=== PATIENT | female | born 1995 | race Caucasian/White ===

== ENCOUNTER 2016-10-07 01:39 | Emergency (ER) | payer MEDICARE, OTHER ==
[~2016-10-07] VITALS: Ht 167.6 cm; Wt 99.8 kg
[~2016-10-07 01:39] MED LIST: CIPRO500 MG PO; DIALYVITE TABL1 EACH PO; ISENTRESS400 MG PO; JENCYCLA0.35 MG PO; METRONIDAZOLE500 MG PO; RENVELA800 MG PO; SENSIPAR30 MG PO; SENSIPAR90 MG PO; VENTOLIN HFA18 GM INH; VITAMIN D5000 UNIT PO; ZOLOFT25 MG PO
[2016-10-07] MEDS ORDERED: PLAVIX75 MG PO (01:58)
[2016-10-07] MEDS ORDERED: NORCO 5-325 TA1 EACH PO (03:34)
[2016-10-07] MEDS ORDERED: CEPHALEXIN500 MG PO (03:34)
[2017-01-29] MEDS ORDERED: NORCO 5-325 TA1 EACH PO (00:42)
== END 2016-10-07 04:48 | disposition home or self-care (01) ==
LOC: ED 01:39
DX: N39.0 Urinary tract infection, site not specified (principal); N19 Unspecified kidney failure; Z99.2 Dependence on renal dialysis; F17.200 Nicotine dependence, unspecified, uncomplicated; Z79.899 Other long term (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; Z88.5 Allergy status to narcotic agent
CPT/HCPCS: 80053; 81001; 83690; 84703; 85025; 85610; 85730; 87088; 96374; 96375; 99283; J0696; J1170; J2405

== ENCOUNTER → 2017-01-28 | Emergency (ER) | payer MEDICARE, OTHER ==
[~2017-01-28] VITALS: Ht 170.2 cm; Wt 90.7 kg
[~2017-01-28] MED LIST changes: +CEPHALEXIN500 MG PO; +NORCO 5-325 TA1 EACH PO; +PLAVIX75 MG PO
--- NOTE | 2017-01-29 21:46 | EKG ---
[facility] [address] [place] [address] Signed Sinus tachycardia Otherwise normal ECG No previous ECGs available Confirmed by JACKIE DOLAN MD ([id number]) on 01/29/2017 9:46:44 PM Electronically Signed By: JACKIE DOLAN MD 01/29/17 2146 PATIENT NAME: CONOR LOUISE Electrocardiogram DATE OF : [birth year] PHYSICIAN: JACKIE DOLAN MD REPORT #: [id number] REPORT IS CONFIDENTIAL AND NOT TO BE RELEASED WITHOUT AUTHORIZATION
== END ==
LOC: ED 22:05
DX: R07.9 Chest pain, unspecified (principal); F17.200 Nicotine dependence, unspecified, uncomplicated; Z91.041 Radiographic dye allergy status; Z88.8 Allergy status to other drugs, medicaments and biological substances; Z88.5 Allergy status to narcotic agent; Z79.899 Other long term (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
CPT/HCPCS: 71010; 80053; 84100; 85025; 93005; 93010; 99284

== ENCOUNTER 2017-02-02 01:36 | Emergency (ER) | payer MEDICARE, OTHER ==
[~2017-02-02] VITALS: Ht 170.2 cm; Wt 90.7 kg
== END 2017-02-02 06:22 | disposition home or self-care (01) ==
LOC: ED 01:36
DX: R10.9 Unspecified abdominal pain (principal); F17.200 Nicotine dependence, unspecified, uncomplicated; Z88.8 Allergy status to other drugs, medicaments and biological substances; Z91.041 Radiographic dye allergy status; Z88.5 Allergy status to narcotic agent; Z79.899 Other long term (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
CPT/HCPCS: 36415; 80053; 81001; 84703; 85025; 96372; 99283; J1170

== ENCOUNTER 2017-09-16 23:05 | Emergency (ER) | payer MEDICARE, OTHER ==
[~2017-09-16] VITALS: Ht 170.2 cm; Wt 75.3 kg
== END 2017-09-17 01:40 | disposition home or self-care (01) ==
LOC: ED 23:05
DX: R52 Pain, unspecified (principal); I12.9 Hypertensive chronic kidney disease with stage 1 through stage 4 chronic kidney disease, or unspecified chronic kidney disease; N18.9 Chronic kidney disease, unspecified; Z91.15 Patient's noncompliance with renal dialysis; Z99.2 Dependence on renal dialysis; F17.200 Nicotine dependence, unspecified, uncomplicated; Z91.041 Radiographic dye allergy status; Z88.5 Allergy status to narcotic agent; Z79.899 Other long term (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
CPT/HCPCS: 80053; 85025; 99283

== ENCOUNTER 2018-05-10 07:20 | Emergency (ER) | payer MEDICARE, OTHER ==
[~2018-05-10] VITALS: Ht 170.2 cm; Wt 75.3 kg
[~2018-05-10 07:20] MED LIST changes: +OMEPRAZOLE20 MG PO; +VELPHORO500 MG PO; +[UNRECOGNIZED DRUG - OTHER] IV
[2018-05-10] MEDS ORDERED: AMLODIPINE BESYL5 MG PO (07:49)
== END 2018-05-10 08:06 | disposition home or self-care (01) ==
LOC: ED 07:20
DX: R04.0 Epistaxis (principal); I13.11 Hypertensive heart and chronic kidney disease without heart failure, with stage 5 chronic kidney disease, or end stage renal disease; N18.6 End stage renal disease; Z99.2 Dependence on renal dialysis; Z91.041 Radiographic dye allergy status; Z88.8 Allergy status to other drugs, medicaments and biological substances; Z88.5 Allergy status to narcotic agent; Z79.899 Other long term (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
CPT/HCPCS: 99283

== ENCOUNTER 2018-05-25 11:53 | Emergency (ER) | payer MEDICARE, OTHER ==
[~2018-05-25] VITALS: Ht 170.2 cm; Wt 75.3 kg
--- OUTSIDE RECORDS SUMMARY | ~2018-05-25 | XMS | Clinical Summary ---
Demographics + + + | Address | [address] | | | [place] [address] | + + + | Home Phone [...] | | | | | [place] [address] | | + + + + + | Thania Mallory | ECON | [address] | | | | | [place] [address] | | + + + + + | Deidra Weldon | ECON | [address] | | | | | [place] | | | | | [address] | | + + + + + Care Team Providers + +------+ + | Care Finish Carpenter Name | Role | Phone | + +------+ + | Jonathan Alonso MD | PP | | + +------+ + Source Comments DANILO is fully live on both EpicCare Ambulatory and EpicCare InPatient.[facility] Allergies + + + + + + [...] | + + + + + + Current Medications + + +-------+---------+------+------+-------+ | Prescription | Sig. | Disp. | Refills | Star | End | Statu | | | | | | t | Date | s | | | | | | Date | | | + + +-------+---------+------+------+-------+ | sevelamer | Take 3,200 mg by | | | | | Activ | | carbonate (RENVELA) | mouth with each meal | | | | | e | | 800 mg Oral tablet | and with snack(s). | | | | | | | | 3 with snacks | | | | | | + + +-------+---------+------+------+-------+ | EPOETIN JOYCE INJ | by Injection route. | | | | | Activ | | | | | | | | e | + + +-------+---------+------+------+-------+ | FOLIC ACID/VITAMIN | Take 1 tablet by | | | | | Activ | | B COMP W-C | mouth once daily. | | | | | e | | (DIALYVITE ORAL) | | | | | | | + + +-------+---------+------+------+-------+ | iron sucrose 100 | Inject 100 mg into | | | | | Activ | | mg iron/5 mL | the vein (IV) once. | | | | | e | | intravenous solution | Per dialysis unit | | | | | | + + +-------+---------+------+------+-------+ | clopidogrel 75 mg | Take 75 mg by mouth | | | | | Activ | | oral tablet | once daily. Take one | | | | | e | | | tablet by mouth | | | | | | | | daily | | | | | | + + +-------+---------+------+------+-------+ | DOXERCALCIFEROL | Inject into the | | | | | Activ | | (HECTOROL IV) | vein (IV). | | | | | e | + + +-------+---------+------+------+-------+ | cinacalcet | Take 90 mg by mouth | | | | | Activ | | (SENSIPAR) 90 mg | once daily. | | | | | e | | oral tablet | Administer with | | | | | | | | food. | | | | | | + + +-------+---------+------+------+-------+ Active Problems + + + | Problem [...] + | Patient on peritoneal dialysis (HCC) | 12/20/19 | | | | 13 [...] Filed Vital Signs + + + + | Vital Sign | Reading | Time Taken | + + + + | Blood Pressure | 122/74 | 05/24/2016 10:48 AM PDT | + + + + | Pulse | 74 | 05/24/2016 10:48 AM PDT | + + + + | Temperature | 36.6 C (97.8 F) | 11/17/2015 10:38 AM PDT | + + + + | Respiratory Rate | - | - | + + + + | Oxygen Saturation | 98% | 12/19/2012 2:45 PM PDT | + + + + | Inhaled Oxygen | - | - | | Concentration | | | + + + + | Weight | 96.9 kg (213 lb 10 | 05/24/2016 10:48 AM PDT | | | oz) | | + + + + | Height | 166.2 cm (5' 5.43") | 05/24/2016 10:48 AM PDT | + + + + | Body Mass Index | 35.08 | 05/24/2016 10:48 AM PDT | + + + + Plan of Treatment +--------+ + + + + | Date | Type | Specialty | Care Team | Description | +--------+ + + + + | 05/04/ | Hospital | | El Starr MD | | | 2022 | Encounter | | [address] | | | | | | [place], [place] | | | | | | [address] | | | | | | [phone] | | | | | | | | +--------+ + + + + + + + + + | Health Maintenance | Due Date | Last Done | Comments | + + + + + | Pneumococcal (Adult) | | 06/21/2012 | | | (2 of 3 - PPSV23) | 5 | | | + + + + + | Influenza (Flu) | | 12/13/2012 | | | vaccination (#1) | 8 | | | + + + + + Results Not on filefrom Last 3 Months Insurance + +--------+ +--------+ + + | Payer | Benefi | Subscriber | Type | Phone | Address | | | t Plan | ID | | | | | | / | | | | | | | Group | | | | | + +--------+ +--------+ + + | MEDICARE | MEDICA | xxxxxxxxxx | Medica | +1- | [id number] | | | RE A & | | re | [phone] | [place] [address] | | | B | | | | | + +--------+ +--------+ + + | SUSTAINABILITY ENGINEER MEDICAID | SUSTAINABILITY ENGINEER | xxxxxxxx | Medica | | | | | [place] | | id | | | | | [place] | | | | | + +--------+ +--------+ + + | MEDICARE RENAL | MEDICA | xxxxxxxxxx | Agency | | RENAL DEPT [id number] | | RECIPIENT EVAL | RE | | | | [place] [address] | | | RENAL | | | | | | | RECIPI | | | | | | | ENT | | | | | | | EVAL | | | | | + +--------+ +--------+ + + + +--------+ +--------+ + + | Guarantor Name | Accoun | Relation to | Date | Phone | Billing Address | | | t Type | Patient | of | | | | | | | | | | + +--------+ +--------+ + + | DARA WELDON | Person | Self | [birth year] | Work: | [address] | | | al/Fam | | 1994 | [phone] | [address] [place] | | | [place] | | | [address] Home: | [address] | | | | | | | | | | | | | [phone] | | | | | | | [address] | | + +--------+ +--------+ + + | CORY ALVES | Kisha | Mother | [birth year]/06/ | Home: | [address] | | | l | | [phone] | [phone] | [address] [place] | | | [place] | | | [address] | [address] | | | g | | | | | + +--------+ +--------+ + +
--- OUTSIDE RECORDS SUMMARY | ~2018-05-25 | XMS | Clinical Summary ---
Demographics + + + | Address | [address] | | | [place] [address] | + + + | Home Phone [...] + + + | Author | Riana [facility] | + + + | Organization | [facility] | + + + | Address | [...] | | | | | [place] [address] | | + + + + + | Wilson De Guzman | ECON | Unknown | | + + + + + Care Team Providers + +------+ + | Care It Communications Manager Name | Role | Phone | [...] | Left: | SYNOVIS | | | [id number] | | 0.8x8cm - [id number]: | | Arm | | | | [...] | | | COVIDIEN | | | [id number] | | 23cmExplanted: Qty: 1 on | | | | | | 3404 / | | 04/08/2014 | | | | | | | | | | | | | | /[id number] | | | | | | | [...] +------+-------+ + | MEDICARE | MEDICA | [id number] | | | [address] | | | RE | | | | [place] [address] | | | IP-OP | | | | | + +--------+ +------+-------+ + | MEDICAID | MEDICA | [id number] | | | [address] | | | ID | | | | [place], [place] | | | [place] | | | | [address] | + +--------+ +------+-------+ + + +--------+ [...] | | al/Fam | | 1994 | [phone] | [address], | | | [place] | | | [address] | [place] [address] | + +--------+ +--------+ + +
--- OUTSIDE RECORDS SUMMARY | ~2018-05-25 | XMS | Clinical Summary ---
Demographics + + + | Address | [address] | | | [place] [address] | + + + | Home Phone [...] + | Cory Weldno | ECON | [address] | | | | | [place] [address] | | + + + + + | Thania Mallory | ECON | [address] | | | | | [place] [address] | | + + + + + | Deidra Weldon | ECON | [address] | | | | | [place] | | | | | [address] | | + + + + + Care Team Providers + +------+ + | Care Enterprise Infrastructure Architect Name | Role | Phone | + +------+ + | Jonathan Alonso MD | PP | | + +------+ + Source Comments DANILO is fully live on both EpicCare Ambulatory and EpicCare InPatient.[facility] Allergies + + + + [...] | | | | | | [place], [place] | | | | | | [address] | | | | | | [phone] | | | | | | | [...] | re | [address] | [place] [address] | | | B | | | | | + +--------+ +--------+ + + | CONSULTANT IN ERGONOMICS AND SAFETY MEDICAID | CONSULTANT IN ERGONOMICS AND SAFETY | xxxxxxxx | Medica | | | | | [place] | | id | | | | | [place] | | | | | + +--------+ +--------+ + + | MEDICARE RENAL | MEDICA | xxxxxxxxxx | Agency | | RENAL DEPT [id number] | | RECIPIENT EVAL | RE | | | | [place] [address] | | | RENAL | | | [...] | | al/Fam | | 1994 | [phone] | [address] [place] | | | [place] | | | [address] Home: | [address] | | | | | | | | | | | | | [phone] | | | | | | | [address] | | + +--------+ +--------+ + + | CORY ALVES | Kisha | Mother | 03/06/ | Home: | [address] | | | l | | [phone] | [phone] | [address] [place] | | | [place] | | | [address] | [address] | | | g | | | | | + +--------+ +--------+ + +
--- OUTSIDE RECORDS SUMMARY | ~2018-05-25 | XMS | Clinical Summary ---
Demographics + + + | Address | [address] | | | [place] [address] | + + + | Home Phone [...] + + + | Author | Riana [facility] | + + + | Organization | [facility] | + + + | Address | [...] | | | | | [place] [address] | | + + + + + | Wilson De Guzman | ECON | Unknown | | + + + + + Care Team Providers + +------+ + | Care Pss Delivery Professional Name | Role | Phone | [...] | Left: | SYNOVIS | | | [id number] | | 0.8x8cm - [id number]: | | Arm | | | | [...] | | | COVIDIEN | | | [id number] | | 23cmExplanted: Qty: 1 on | | | | | | 3404 / | | 04/08/2014 | | | | | | | | | | | | | | /[id number] | | | | | | | [...] +------+-------+ + | MEDICARE | MEDICA | [id number] | | | [address] | | | RE | | | | [place] [address] | | | IP-OP | | | | | + +--------+ +------+-------+ + | MEDICAID | MEDICA | [id number] | | | [address] | | | ID | | | | [place], [place] | | | [place] | | | | [address] | + +--------+ +------+-------+ + + +--------+ [...] | | al/Fam | | 1994 | [phone] | [address], | | | [place] | | | [address] | [place] [address] | + +--------+ +--------+ + +
[~2018-05-25 11:53] MED LIST changes: +AMLODIPINE BESYL5 MG PO
--- OUTSIDE RECORDS SUMMARY | 2018-05-25 11:58 | XMS ---
PreManage Notification: CONOR LOUISE Security Title Searcher Events No recent Security Events currently on file CRITERIA MET - [facility] - 2 Visits in 30 Days CARE PROVIDERS There are no care providers on record at this time. Karena has no Care Guidelines for this patient. Timothy VISIT COUNT (12 MO.) [address] [facility] [place] TOTAL 4 NOTE: Visits indicate total known visits. ED/UCC VISIT TRACKING (12 MO.) 05/25/2018 11:53 [facility] [place] TYPE: Emergency COMPLAINT: - SOB/COUGH 05/10/2018 07:20 [facility] [place] TYPE: Emergency COMPLAINT: - PREVIOUS BLOODY NOSE DIAGNOSES: - Epistaxis - Other chcf (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 - End stage renal disease - Allergy status to narcotic agent status - Dependence on renal dialysis - Allergy status to other drugs, medicaments and biological substances status - Radiographic dye allergy status - Hypertensive heart and chronic kidney disease without heart failure, with stage 5 chronic kidney disease, or end stage renal disease 02/14/2018 23:09 [facility] [place] TYPE: Emergency COMPLAINT: - ABD PAIN DIAGNOSES: - Allergy status to narcotic agent status - Functional dyspepsia - Radiographic dye allergy status - Other ascites - Nicotine dependence, unspecified, uncomplicated - Epigastric pain - Other chcf (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 09/16/2017 23:06 [facility] [place] TYPE: Emergency COMPLAINT: - BP PROBLEM,RENAL FAILURE DIAGNOSES: - Chronic kidney disease, unspecified - Dependence on renal dialysis - Pain, unspecified - Allergy status to narcotic agent status - Nicotine dependence, unspecified, uncomplicated - Other chcf (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 - Elevated blood-pressure reading, without diagnosis of hypertension - Patient's noncompliance with renal dialysis - Hypertensive chronic kidney disease with stage 1 through stage 4 chronic kidney disease, or unspecified chronic kidney disease - Radiographic dye allergy status INPATIENT VISIT TRACKING (12 MO.) No inpatient visits to display in this time frame [email or web address]
[2018-05-25] MEDS ORDERED: ZOFRAN4 MG PO (15:00)
== END 2018-05-25 15:45 | disposition home or self-care (01) ==
LOC: ED 11:53
DX: J18.9 Pneumonia, unspecified organism (principal); J90 Pleural effusion, not elsewhere classified; Z99.2 Dependence on renal dialysis; Z91.041 Radiographic dye allergy status; Z88.8 Allergy status to other drugs, medicaments and biological substances; Z88.5 Allergy status to narcotic agent; Z79.899 Other long term (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
CPT/HCPCS: 36415; 71046; 82803; 83605; 85025; 87502; 96372; 99285-25; J0696

== ENCOUNTER 2018-05-26 07:23 | Emergency (ER) | payer MEDICARE, OTHER ==
[~2018-05-26] VITALS: Ht 170.2 cm; Wt 75.3 kg
--- OUTSIDE RECORDS SUMMARY | ~2018-05-26 | XMS | Clinical Summary ---
Demographics + + + | Address | [address] | | | [place] [address] | + + + | Home Phone | | + + + | Preferred Language | Unknown | + + + | Marital Status | Single | + + + | Jehovah'S Witness Affiliation | Unknown | + + + | Race | Unknown | + + + | Ethnic Group | Unknown | + + + Author + + + | Author | [facility]iana [facility] | + + + | Organization | [facility] | + + + | Address | [...] + + + + + | Christy Camacoh | ECON | [address] | | | | | [place] [address] | | + + + + + | Wilson De Guzman | ECON | Unknown | | + + + + + Care Team Providers + +------+ + | Care Brine Process Operator Name | Role | Phone | [...] + + +-------+---------+------+------+-------+ | sevelamer | Take 800 mg by mouth | | | | | Activ | | (RENVELA) 800 MG | 3 (three) times | | | | | e | | tablet | daily with meals. | | | | | | + + +-------+---------+------+------+-------+ | cinacalcet | Take 60 mg by mouth | | | | | Activ | | (SENSIPAR) 30 MG | daily. | | | | | e | | tablet | | | | | | | + + +-------+---------+------+------+-------+ | clopidogrel | Take 75 mg by [...] | | | + + +-------+---------+------+------+-------+ | benzonatate | Take 100 mg by mouth | | | | | Activ | | (TESSALON) 100 MG | 3 (three) times | | | | | e | | capsule | daily as needed for | | | | | | | | Cough. 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 | + + + | ESRD on hemodialysis | 08/01/2014 | + + + Family History + +------+--------+ + | Relation [...] Used | | + +-------+ +--------+------+ | Current Every Day | | 0.5 | 0.5 | | | Smoker | | | | | + +-------+ +--------+------+ + + +---------+ + | Alcohol Use [...] + + + | Blood Pressure | 144/93 | 07/09/2016 5:53 PM PDT | + + + + | Pulse | 66 | 07/09/2016 5:53 PM PDT | + + + + | Temperature | 36.4 C (97.5 F) | 07/09/2016 4:21 PM PDT | + + + + | Respiratory Rate | 16 | 07/09/2016 5:53 PM PDT | + + + + | Oxygen Saturation | 97% | 07/09/2016 5:53 PM PDT | + + + + | Inhaled Oxygen | - | - | | Concentration | | | + + + + | Weight | 96.9 kg (213 lb 10 | 07/09/2016 12:55 PM PDT | | | oz) | | + + + + | Height | 167.6 cm (5' 6") | 09/01/2015 8:46 AM PDT | + + + + | Body Mass Index | 34.48 | 07/09/2016 12:55 PM PDT | + + + + Plan [...] + + | Vaccine: Influenza | | 12/13/2012 | | | (#1) | 8 | | | + [...] | Left: | SYNOVIS | | | [id number] | | 0.8x8cm - [id number]: | | Arm | | | | [...] Lot | + +------+------+ +--------+--------+--------+ | 14.5 / (4.8) X | | | COVIDIEN | | | [id number] | | 23cmExplanted: Qty: 1 on | | | | | | 3404 / | | 04/08/2014 | | | | | | | | | | | | | | /[id number] | | | | | | | | 1X | + +------+------+ +--------+--------+--------+ Results Not on filefrom Last 3 Months Insurance + +--------+ +------+-------+ + | Payer | Benefi | Subscriber | Type | Phone | Address | | | t Plan | ID | | | | | | / | | | | | | | Group | | | | | + +--------+ +------+-------+ + | MEDICARE | MEDICA | [id number] | | | [address] | | | RE | | | | [place] [address] | | | IP-OP | | | | | + +--------+ +------+-------+ + | MEDICAID | MEDICA | [id number] | | | [address] | | | ID | | | | [place], [place] | | | [place] | | | | [address] | + +--------+ +------+-------+ + + +--------+ +--------+ + + | Guarantor Name | Accoun | Relation to | Date | Phone | Billing Address | | | t Type | Patient | of | | | | | | | | | | + +--------+ +--------+ + + | DARA WELDON | Person | Self [birth year] | Home: | [address] | | | al/Fam | | 1994 | [phone] | [address], | | | [place] | | | [address] | [place] [address] | + +--------+ +--------+ + +
--- OUTSIDE RECORDS SUMMARY | ~2018-05-26 | XMS | Clinical Summary ---
Demographics + + + | Address | [address] | | | [place] [address] | + + + | Home Phone [...] + + + | Author | Riana [facility] | + + + | Organization | [facility] | + + + | Address | [...] | | | | | [place] [address] | | + + + + + | Wilson De Guzman | ECON | Unknown | | + + + + + Care Team Providers + +------+ + | Care Elastic Attacher Overlock Name | Role | Phone | + [...] | Left: | SYNOVIS | | | [id number] | | 0.8x8cm - [id number]: | | Arm | | | | [...] | | | COVIDIEN | | | [id number] | | 23cmExplanted: Qty: 1 on | | | | | | 3404 / | | 04/08/2014 | | | | | | | | | | | | | | /[id number] | | | | | | | [...] +------+-------+ + | MEDICARE | MEDICA | [id number] | | | [address] | | | RE | | | | [place] [address] | | | IP-OP | | | | | + +--------+ +------+-------+ + | MEDICAID | MEDICA | [id number] | | | [address] | | | ID | | | | [place], [place] | | | [place] | | | | [address] | + +--------+ +------+-------+ + + +--------+ [...] | | al/Fam | | 1994 | [phone] | [address], | | | [place] | | | [address] | [place] [address] | + +--------+ +--------+ + +
--- OUTSIDE RECORDS SUMMARY | ~2018-05-26 | XMS | Clinical Summary ---
Demographics + + + | Address | [address] | | | [place] [address] | + + + | Home Phone [...] | | | | | [place] [address] | | + + + + + | Thania Mallory | ECON | [address] | | | | | [place] [address] | | + + + + + | Deidra Weldon | ECON | [address] | | | | | [place] | | | | | [address] | | + + + + + Care Team Providers + +------+ + | Care Notereader Name | Role | Phone | + +------+ + | Jonathan Alonso MD | PP | | + +------+ + Source Comments DANILO is fully live on both EpicCare Ambulatory and EpicCare InPatient.[facility] Allergies + + + + [...] [address] | | | | | | [place], [place] | | | | | | [address] | | | | | | [phone] | | | | | | | [...] | re | [address] | [place] [address] | | | B | | | | | + +--------+ +--------+ + + | RADIO INTERFERENCE INVESTIGATOR MEDICAID | RADIO INTERFERENCE INVESTIGATOR | xxxxxxxx | Medica | | | | | [place] | | id | | | | | [place] | | | | | + +--------+ +--------+ + + | MEDICARE RENAL | MEDICA | xxxxxxxxxx | Agency | | RENAL DEPT [id number] | | RECIPIENT EVAL | RE | | | | [place] [address] | | | RENAL | | | [...] | | al/Fam | | 1994 | [phone] | [address] | | | [place] | | | [address] Home: | [address] | | | | | | | | | | | | | [phone] | | | | | | | [address] | | + +--------+ +--------+ + + | CORY ALVES | Kisha | Mother | 03/06/ | Home: | [address] # | | | l | | [phone] | [phone] | [address] [place] [place] | | | [place] | | | [address] | [address] | | | g | | | | | + +--------+ +--------+ + +
--- OUTSIDE RECORDS SUMMARY | ~2018-05-26 | XMS | Clinical Summary ---
Demographics + + + | Address | [address] | | | [place] [address] | + + + | Home Phone [...] | | | | | [place] [address] | | + + + + + | Thania Mallory | ECON | [address] | | | | | [place] [address] | | + + + + + | Deidra Weldon | ECON | [address] | | | | | [place] | | | | | [address] | | + + + + + Care Team Providers + +------+ + | Care Fiber Product Cutting Machine Operator Name | Role | Phone | + +------+ + | Jonathan Alonso MD | PP | | + +------+ + Source Comments DANILO is fully live on both EpicCare Ambulatory and EpicCare InPatient.[facility]ly [facility] Allergies + + + + + [...] [address] | | | | | | [place], [place] | | | | | | [address] | | | | | | [phone] | | | | | | | [...] | re | [address] | [place] [address] | | | B | | | | | + +--------+ +--------+ + + | PANAMA HAT SMEARER MEDICAID | PANAMA HAT SMEARER | xxxxxxxx | Medica | | | | | [place] | | id | | | | | [place] | | | | | + +--------+ +--------+ + + | MEDICARE RENAL | MEDICA | xxxxxxxxxx | Agency | | RENAL DEPT [id number] | | RECIPIENT EVAL | RE | | | | [place] [address] | | | RENAL | | | [...] | | al/Fam | | 1994 | [phone] | [address] [place] | | | [place] | | | [address] Home: | [address] | | | | | | | | | | | | | [phone] | | | | | | | [address] | | + +--------+ +--------+ + + | CORY ALVES | Kisha | Mother | 03/06/ | Home: | [address] # | | | l | | [phone] | [phone] | [address] [place] | | | [place] | | | [address] | [address] | | | g | | | | | + +--------+ +--------+ + +
[~2018-05-26 07:23] MED LIST changes: +ZOFRAN4 MG PO
--- OUTSIDE RECORDS SUMMARY | 2018-05-26 07:26 | XMS ---
PreManage Notification: CONOR LOUISE Security Underwriting Analyst Events No recent Security Events currently on file CRITERIA MET - [facility] - 2 Visits in 30 Days CARE PROVIDERS There are no care providers on record at this time. Karena has no Care Guidelines for this patient. Timothy VISIT COUNT (12 MO.) [address] [facility] [address] [facility] TOTAL 5 NOTE: Visits indicate total known visits. ED/C VISIT TRACKING (12 MO.) 05/26/2018 07:23 [facility] [place] TYPE: Emergency COMPLAINT: - FLU SYMPTOMS 05/25/2018 11:53 [facility] [place] TYPE: Emergency COMPLAINT: - SOB/COUGH 05/10/2018 07:20 [facility] [place] TYPE: Emergency COMPLAINT: - PREVIOUS BLOODY NOSE DIAGNOSES: - Epistaxis - Other long distance operator (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 - End stage renal [...] unspecified, uncomplicated - Epigastric pain - Other long distance operator (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 09/16/2017 23:[address] [facility] [place] TYPE: Emergency COMPLAINT: - BP PROBLEM,RENAL FAILURE DIAGNOSES: - Chronic kidney disease, unspecified - Dependence on renal dialysis - Pain, unspecified - Allergy status to narcotic agent status - Nicotine dependence, unspecified, uncomplicated - Other intermediate (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 - Elevated blood-pressure reading, without diagnosis of hypertension - Patient's noncompliance with renal dialysis - Hypertensive chronic kidney disease with stage 1 through stage 4 chronic kidney disease, or unspecified chronic kidney disease - Radiographic dye allergy status INPATIENT VISIT TRACKING (12 MO.) No inpatient visits to display in this time frame [email or web address]
== END 2018-05-26 10:35 | disposition short-term general hospital (02) ==
LOC: ED 07:23
DX: J90 Pleural effusion, not elsewhere classified (principal); Z99.2 Dependence on renal dialysis; Z91.041 Radiographic dye allergy status; Z88.8 Allergy status to other drugs, medicaments and biological substances; Z88.5 Allergy status to narcotic agent; Z79.899 Other long term (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
CPT/HCPCS: 71045; 80053; 83605; 85025; 96365; 96375; 99285-25; J0696; J1200; J2060; J2405; J2765

== ENCOUNTER 2018-06-04 06:06 | Emergency (ER) | payer MEDICARE, OTHER ==
[~2018-06-04] VITALS: Ht 170.2 cm; Wt 68.7 kg
--- OUTSIDE RECORDS SUMMARY | ~2018-06-04 | XMS | Clinical Summary ---
Demographics + + + | Address | [facility] [address] | | | [place] [address] | + + + | Home Phone | | + + + | Preferred Language | Unknown | + + + | Marital Status | Single | + + + | Congregational Affiliation | Unknown | + + + | Race | Unknown | + + + | Ethnic Group | Unknown | + + + Author + + + | Author | [facility] | + + + | Organization | [facility] | + + + | Address | Unknown | + + + | Phone | Unavailable | + + + Support + + + + + | Name | Relationship | Address | Phone | + + + + + | Cory Louise | ECON | Unknown | | + + + + + | Thania Mallory | ECON | Unknown | | + + + + + | Saundra Mallory | ECON | Unknown | | + + + + + | Christy Camacho | ECON | [address] | | | | | [place] [address] | | + + + + + | Wilson De Guzman | ECON | Unknown | | + + + + + Care Team Providers + +------+ + | Care Semi Truck Driver Name | Role | Phone | + +------+ + | Jonathan Alonso MD | PP | | + +------+ + Allergies + + + + + + | Active Allergy | Reactions | Severity | Noted | Comments | | | | | Date | | + + + + + + | Fentanyl | Itching | Medium | 11/01/19 | | | | | | 15 | | + + + + + + | Iodinated Diagnostic | Itching | Medium | 08/13/19 | Pt c/o face | | Agents | | | 16 | itching during | | | | | | fistulagram | + + + + + + | Morphine | Rash | Medium | 03/07/19 | | | | | | 15 | | + + + + + + | Adhesive Tape | Rash | Medium | 06/13/19 | Use silk tape only | | | | | 15 | | + + + + + + Current Medications + + +--------+---------+------+------+-------+ | Prescription | Sig. | Disp. | Refills | Star | End | Statu | | | | | | t | Date | s | | | | | | Date | | | + + +--------+---------+------+------+-------+ | clopidogrel | Take 75 mg by mouth | | | | | Activ | | (PLAVIX) 75 MG | daily. Indications: | | | | | e | | tabletIndications: | Treatment to Prevent | | | | | | | Subacute Stent | a Blood Clot in a | | | | | | | Thrombosis | Vascular Stent | | | | | | | Prevention | | | | | | | + + +--------+---------+------+------+-------+ | Etelcalcetide HCl | Inject into the | | | | | Activ | | (PARSABIV IV) | vein 3 (three) times | | | | | e | | | a week. | | | | | | + + +--------+---------+------+------+-------+ | sucroferric | Take 500 mg by mouth | | | | | Activ | | oxyhydroxide | 3 (three) times | | | | | e | | (VELPHORO) 500 MG | daily with meals. | | | | | | | chewable tablet | | | | | | | + + +--------+---------+------+------+-------+ | | Take 2 tablets by | | | | | Activ | | HYDROcodone-acetamin | mouth nightly as | | | | | e | | ophen (NORCO) 5-325 | needed for Pain. | | | | | | | MG per tablet | | | | | | | + + +--------+---------+------+------+-------+ | ondansetron | Take 4 mg by mouth | | | | | Activ | | (ZOFRAN) 4 MG tablet | every 6 (six) hours | | | | | e | | | as needed for | | | | | | | | Nausea. | | | | | | + + +--------+---------+------+------+-------+ | hydrALAZINE | Take 1 tablet by | 90 | 3 | 03/2 | 03/2 | Activ | | (APRESOLINE) 50 MG | mouth 3 (three) | tablet | | 9/20 | 8/20 | e | | tablet | times daily. | | | 19 | 20 | | + + +--------+---------+------+------+-------+ | isosorbide | Take 1 tablet by | 90 | 2 | 03/2 | 03/2 | Activ | | dinitrate (ISORDIL) | mouth 3 (three) | tablet | | 9/20 | 8/20 | e | | 40 MG tablet | times daily. | | | 19 | 20 | | + + +--------+---------+------+------+-------+ | metoprolol | Take 1 tablet by | 30 | 2 | 03/3 | 03/2 | Activ | | (TOPROL-XL) 25 MG 24 | mouth daily. | tablet | | 0/20 | 9/20 | e | | hr tablet | | | | 19 | 20 | | + + +--------+---------+------+------+-------+ | pantoprazole | Take 1 tablet by | 30 | 1 | 03/3 | 05/2 | Activ | | (PROTONIX) 40 MG | mouth every morning | tablet | | 0/20 | 9/20 | e | | tablet | before breakfast for | | | 19 | 19 | | | | 60 days. | | | | | | + + +--------+---------+------+------+-------+ | sevelamer | Take 2 tablets by | 180 | 2 | 03/2 | 03/2 | Activ | | (RENVELA) 800 MG | mouth 3 (three) | tablet | | 9/20 | 8/20 | e | | tablet | times daily with | | | 19 | 20 | | | | meals. | | | | | | + + +--------+---------+------+------+-------+ | sevelamer | Take 800 mg by mouth | | | | 03/2 | Disco | | (RENVELA) 800 MG | 3 (three) times | | | | 3/20 | ntinu | | tablet | daily with meals. | | | | 19 | ed | + + +--------+---------+------+------+-------+ | cinacalcet | Take 60 mg by mouth | | | | 03/2 | Disco | | (SENSIPAR) 30 MG | daily. | | | | 3/20 | ntinu | | tablet | | | | | 19 | ed | + + +--------+---------+------+------+-------+ | benzonatate | Take 100 mg by mouth | | | | 03/2 | Disco | | (TESSALON) 100 MG | 3 (three) times | | | | 3/20 | ntinu | | capsule | daily as needed for | | | | 19 | ed | | | Cough. | | | | | | + + +--------+---------+------+------+-------+ | citalopram | Take 20 mg by mouth | | | | 03/2 | Disco | | (CELEXA) 20 MG | nightly. | | | | 9/20 | ntinu | | tablet | | | | | 19 | ed | + + +--------+---------+------+------+-------+ | losartan (COZAAR) | Take 100 mg by mouth | | | | 03/2 | Disco | | 100 MG tablet | nightly. | | | | 9/20 | ntinu | | | | | | | 19 | ed | + + +--------+---------+------+------+-------+ | doxycycline | Take 100 mg by mouth | | | | 03/2 | Disco | | (VIBRA-TABS) 100 MG | 2 (two) times | | | | /20 | ntinu | | tablet | daily. | | | | 19 | ed | + + +--------+---------+------+------+-------+ Active Problems + + + | Problem | Noted Date | + + + | Acute systolic CHF (congestive heart failure) ([facility]) | 05/28/2018 | + + + | Transaminitis | 05/28/2018 | + + + | Chronic systolic heart failure (HCC) | 05/27/2018 | + + + | Hyperphosphatemia | 05/27/2018 | + + + | Hyperkalemia | 05/27/2018 | + + + | Pulmonary artery hypertension (HCC) | 05/27/2018 | + + + | Non-rheumatic tricuspid valve insufficiency | 05/27/2018 | + + + | Non-rheumatic mitral regurgitation | 05/27/2018 | + + + | Diastolic dysfunction with chronic heart failure (HCC) | 05/27/2018 | + + + | At high risk for electrolyte imbalance | 05/27/2018 | + + + | SOB (shortness of breath) | 05/26/2018 | + + + | Pleural effusion on right | 05/26/2018 | + + + | Non-compliance | 05/26/2018 | + + + | HSP (Jdaa Schernestolein purpura) | 08/01/2014 | + + + | ESRD on hemodialysis | 08/01/2014 | + + + Encounters +--------+ + + + + | Date | Type | Specialty | Care Team | Description | +--------+ + + + + | 05/26/ | Hospital | | Aneudy Hunter, | Pleural effusion on | | 2019 - | Encounter | | Mayco Mabry MD | right (Primary Dx); | | | | | Javy Figueroa MD | Chest pain, | | 06/01/ | | | Darell Kowalski MD | unspecified type; | | 2019 | | | | Other ascites; Acute | | | | | | respiratory | | | | | | distress; End-stage | | | | | | renal disease on | | | | | | hemodialysis ([facility]); | | | | | | Hyperkalemia; | | | | | | Hyperphosphatemia; | | | | | | At high risk for | | | | | | electrolyte | | | | | | imbalance; Acute | | | | | | systolic CHF | | | | | | (congestive heart | | | | | | failure) ([facility]); | | | | | | Hypoalbuminemia; | | | | | | Anemia in ESRD | | | | | | (end-stage renal | | | | | | disease) ([facility]); ESRD | | | | | | on hemodialysis | +--------+ + + + + from Last 3 Months Family History + +------+--------+ + | Relation | Name | Status | Comments | + +------+--------+ + | Father | | Alive | | + +------+--------+ + | Mother | | Alive | | + +------+--------+ + Social History + +-------+ +--------+------+ | Tobacco Use | Types | Packs/Day | Years | Date | | | | | Used | | + +-------+ +--------+------+ | Former Smoker | | 0.5 | 0.5 | | + +-------+ +--------+------+ + +---+---+---+ | Smokeless Tobacco: | | | | | Never Used | | | | + +---+---+---+ + + | Tobacco Cessation: Counseling Given: Yes | + + + + +---------+ + | Alcohol Use | Drinks/We | oz/Week | Comments | | | ek | | | + + +---------+ + | Yes | | | occassional | + + +---------+ + + + + | Sex Assigned at | Date Recorded | | | | + + + | Not on file | | + + + Last Filed Vital Signs + + + + | Vital Sign | Reading | Time Taken | + + + + | Blood Pressure | 137/96 | 06/01/2018 2:28 PM PDT | + + + + | Pulse | 82 | 06/01/2018 12:27 PM PDT | + + + + | Temperature | 37.1 C (98.7 F) | 06/01/2018 11:40 AM PDT | + + + + | Respiratory Rate | 16 | 06/01/2018 11:40 AM PDT | + + + + | Oxygen Saturation | 98% | 06/01/2018 11:40 AM PDT | + + + + | Inhaled Oxygen | - | - | | Concentration | | | + + + + | Weight | 67.2 kg (148 lb 2.4 | 06/01/2018 11:40 AM PDT | | | oz) | | + + + + | Height | 170.2 cm (5' 7") | 05/26/2018 5:25 PM PDT | + + + + | Body Mass Index | 23.2 | 06/01/2018 11:40 AM PDT | + + + + Plan of Treatment + + + + + | Health Maintenance | Due Date | Last Done | Comments | + + + + + | Vaccine: | | 10/08/2001, 07/22/1997, | | | Dtap/Tdap/Td (5 - | 7 | 1996, Additional history | | | Tdap) | | exists | | + + + + + | Vaccine: HPV (1 - | | | | | Female 3-dose | 1 | | | | series) | | | | + + + + + | Vaccine: | | 06/21/2012 | | | Pneumococcal 19-64 | 5 | | | | Highest Risk (2 of 3 | | | | | - PPSV23) | | | | + + + + + | Cervical Cancer | | | | | Screening (Pap) | 7 | | | + + + + + | Vaccine: Influenza | | | | | (Season Ended) | 9 | | | + + + + + Implants + +------+--------+ +--------+--------+--------+ | Implanted | Type | Area | Manufacture | Device | Expira | Model | | | | | r | | tion | / | | | | | | Identi | Date | Serial | | | | | | fier | | / Lot | + +------+--------+ +--------+--------+--------+ | Patch Bovine Vascuguard | | Left: | SYNOVIS | | | [id number] | | 0.8x8cm - [id number]: | | Arm | | | | N / | | Qty: 1 on 03/07/2014 by Alfred, | | | | | | /[id number] | | Rik Trotter MD | | | | | | 14-11K | | | | | | | | [id number] | + +------+--------+ +--------+--------+--------+ + +------+------+ +--------+--------+--------+ | Explanted | Type | Area | Manufacture | Device | Expira | Model | | | | | r | | tion | / | | | | | | Identi | Date | Serial | | | | | | fier | | / Lot | + +------+------+ +--------+--------+--------+ | 14.5 Fr/Ch (4.8) X | | | COVIDIEN | | | [id number] | | 23cmExplanted: Qty: 1 on | | | | | | [id number] / | | 04/08/2014 | | | | | | | | | | | | | | /[id number] | | | | | | | | 1X | + +------+------+ +--------+--------+--------+ Procedures + +--------+ + + + | Procedure Name | Priori | Date/Time | Associated Diagnosis | Comments | | | ty | | | | + +--------+ + + + | COMPREHENSIVE | Routin | 06/01/2018 | | Results for this | | METABOLIC PANEL | e | 4:43 AM | | procedure are in the | | | | PDT | | results section. | + +--------+ + + + | CBC W/AUTO DIFF | Routin | 06/01/2018 | | Results for this | | (REFLEX TO MANUAL) | e | 4:43 AM | | procedure are in the | | | | PDT | | results section. | + +--------+ + + + | HOME O2 EVAL | Routin | 06/01/2018 | | | | (DESATURATION | e | 12:05 AM | | | | SCREEN) | | PDT | | | + +--------+ + + + | COMPREHENSIVE | Routin | 05/31/2018 | | Results for this | | METABOLIC PANEL | e | 5:04 AM | | procedure are in the | | | | PDT | | results section. | + +--------+ + + + | CBC W/AUTO DIFF | Routin | 05/31/2018 | | Results for this | | (REFLEX TO MANUAL) | e | 5:04 AM | | procedure are in the | | | | PDT | | results section. | + +--------+ + + + | HEMODIALYSIS | Today | 05/30/2018 | | Results for this | | INPATIENT | | 10:14 AM | | procedure are in the | | | | PDT | | results section. | + +--------+ + + + | COMPREHENSIVE | Routin | 05/30/2018 | | Results for this | | METABOLIC PANEL | e | 4:18 AM | | procedure are in the | | | | PDT | | results section. | + +--------+ + + + | CBC W/AUTO DIFF | Routin | 05/30/2018 | | Results for this | | (REFLEX TO MANUAL) | e | 4:18 AM | | procedure are in the | | | | PDT | | results section. | + +--------+ + + + | XR CHEST 1 VIEW | STAT | 05/29/2018 | | Results for this | | | | 1:38 PM | | procedure are in the | | | | PDT | | results section. | + +--------+ + + + | CHOLESTEROL, BODY | Timed | 05/29/2018 | | Results for this | | FLUID | | 12:56 PM | | procedure are in the | | | | PDT | | results section. | + +--------+ + + + | LACTATE | Routin | 05/29/2018 | | Results for this | | DEHYDROGENASE, BODY | e | 12:56 PM | | procedure are in the | | FLUID | | PDT | | results section. | + +--------+ + + + | GRAM STAIN | Timed | 05/29/2018 | | Results for this | | | | 12:56 PM | | procedure are in the | | | | PDT | | results section. | + +--------+ + + + | US THORACENTESIS | Routin | 05/29/2018 | | Results for this | | WITH IMAGING | e | 12:31 PM | | procedure are in the | | GUIDANCE | | PDT | | results section. | + +--------+ + + + | APTT | INOCENCIO | 05/29/2018 | | Results for this | | | | 8:52 AM | | procedure are in the | | | | PDT | | results section. | + +--------+ + + + | PROTIME-INR | INOCENCIO | 05/29/2018 | | Results for this | | | | 8:52 AM | | procedure are in the | | | | PDT | | results section. | + +--------+ + + + | COMPREHENSIVE | Routin | 05/29/2018 | | Results for this | | METABOLIC PANEL | e | 4:57 AM | | procedure are in the | | | | PDT | | results section. | + +--------+ + + + | CBC W/AUTO DIFF | Routin | 05/29/2018 | | Results for this | | (REFLEX TO MANUAL) | e | 4:57 AM | | procedure are in the | | | | PDT | | results section. | + +--------+ + + + | US ABDOMEN LIMITED | Routin | 05/28/2018 | | Results for this | | | e | 7:26 PM | | procedure are in the | | | | PDT | | results section. | + +--------+ + + + | TROPONIN I | Routin | 05/28/2018 | | Results for this | | | e | 1:59 PM | | procedure are in the | | | | PDT | | results section. | + +--------+ + + + | HEMODIALYSIS | Routin | 05/28/2018 | | Results for this | | INPATIENT | e | 1:34 PM | | procedure are in the | | | | PDT | | results section. | + +--------+ + + + | HIV-1 AND HIV-2 | Add-On | 05/28/2018 | | Results for this | | ANTIBODIES | | 12:36 PM | | procedure are in the | | | | PDT | | results section. | + +--------+ + + + | HEPATITIS PANEL, | INOCENCIO | 05/28/2018 | | Results for this | | ACUTE | | 12:36 PM | | procedure are in the | | | | PDT | | results section. | + +--------+ + + + | RENAL FUNCTION PANEL | STAT | 05/28/2018 | | Results for this | | | | 12:09 PM | | procedure are in the | | | | PDT | | results section. | + +--------+ + + + | EKG STANDARD 12 LEAD | Routin | 05/28/2018 | | Results for this | | | e | 11:58 AM | | procedure are in the | | | | PDT | | results section. | + +--------+ + + + | HCG, SERUM, | Add-On | 05/28/2018 | | Results for this | | QUALITATIVE | | 9:23 AM | | procedure are in the | | | | PDT | | results section. | + +--------+ + + + | C-REACTIVE PROTEIN | Add-On | 05/28/2018 | | Results for this | | | | 9:23 AM | | procedure are in the | | | | PDT | | results section. | + +--------+ + + + | SEDIMENTATION RATE, | Add-On | 05/28/2018 | | Results for this | | AUTOMATED | | 9:23 AM | | procedure are in the | | | | PDT | | results section. | + +--------+ + + + | TSH | Add-On | 05/28/2018 | | Results for this | | | | 9:23 AM | | procedure are in the | | | | PDT | | results section. | + +--------+ + + + | TROPONIN I | Add-On | 05/28/2018 | | Results for this | | | | 9:23 AM | | procedure are in the | | | | PDT | | results section. | + +--------+ + + + | COMPREHENSIVE | Routin | 05/28/2018 | | Results for this | | METABOLIC PANEL | e | 9:23 AM | | procedure are in the | | | | PDT | | results section. | + +--------+ + + + | CBC W/AUTO DIFF | Routin | 05/28/2018 | | Results for this | | (REFLEX TO MANUAL) | e | 9:23 AM | | procedure are in the | | | | PDT | | results section. | + +--------+ + + + | PATHOLOGY CYTOLOGY - | INOCENCIO | 05/28/2018 | | Results for this | | FLUID | | 8:00 AM | | procedure are in the | | | | PDT | | results section. | + +--------+ + + + | SPUTUM CULT W/ GRAM | Timed | 05/27/2018 | | Results for this | | STAIN | | 8:15 PM | | procedure are in the | | | | PDT | | results section. | + +--------+ + + + | HEPATITIS | STAT | 05/27/2018 | | Results for this | | PANEL,CHRONIC | | 5:58 PM | | procedure are in the | | | | PDT | | results section. | + +--------+ + + + | ECHO CARDIAC ADULT | Routin | 05/27/2018 | | Results for this | | COMPLETE | e | 12:01 PM | | procedure are in the | | | | PDT | | results section. | + +--------+ + + + | XR CHEST 2 VIEW | Routin | 05/27/2018 | | Results for this | | FRONTAL AND LATERAL | e | 11:02 AM | | procedure are in the | | | | PDT | | results section. | + +--------+ + + + | BRAIN NATRIURETIC | Routin | 05/27/2018 | | Results for this | | PEPTIDE | e - AM | 4:25 AM | | procedure are in the | | | | PDT | | results section. | + +--------+ + + + | PHOSPHOROUS | Routin | 05/27/2018 | | Results for this | | | e - AM | 4:25 AM | | procedure are in the | | | | PDT | | results section. | + +--------+ + + + | MAGNESIUM | Routin | 05/27/2018 | | Results for this | | | e - AM | 4:25 AM | | procedure are in the | | | | PDT | | results section. | + +--------+ + + + | BASIC METABOLIC | Routin | 05/27/2018 | | Results for this | | PANEL | e - AM | 4:25 AM | | procedure are in the | | | | PDT | | results section. | + +--------+ + + + | CBC W/AUTO DIFF | INOCENCIO | 05/27/2018 | | Results for this | | (REFLEX TO MANUAL) | | 4:25 AM | | procedure are in the | | | | PDT | | results section. | + +--------+ + + + | MRSA BY PCR | Timed | 05/26/2018 | | Results for this | | | | 6:06 PM | | procedure are in the | | | | PDT | | results section. | + +--------+ + + + | RESPIRATORY | Timed | 05/26/2018 | | Results for this | | FILMARRAY | | 6:06 PM | | procedure are in the | | | | PDT | | results section. | + +--------+ + + + | PROCALCITONIN | Timed | 05/26/2018 | | Results for this | | | | 5:27 PM | | procedure are in the | | | | PDT | | results section. | + +--------+ + + + | CT CHEST WO CONTRAST | INOCENCIO | 05/26/2018 | | Results for this | | | | 4:41 PM | | procedure are in the | | | | PDT | | results section. | + +--------+ + + + | XR CHEST 2 VIEW | INOCENCIO | 05/26/2018 | | Results for this | | FRONTAL AND LATERAL | | 3:59 PM | | procedure are in the | | | | PDT | | results section. | + +--------+ + + + | FLUID CULT W/GRAM | STAT | 05/26/2018 | | Results for this | | STAIN | | 3:13 PM | | procedure are in the | | | | PDT | | results section. | + +--------+ + + + | PATHOLOGY CONSULT | Routin | 05/26/2018 | | Results for this | | | e | 2:12 PM | | procedure are in the | | | | PDT | | results section. | + +--------+ + + + | FLUID TOTAL PROTEIN | STAT | 05/26/2018 | | Results for this | | (BODY FLUID) | | 2:12 PM | | procedure are in the | | | | PDT | | results section. | + +--------+ + + + | ALBUMIN, FLUID | STAT | 05/26/2018 | | Results for this | | | | 2:12 PM | | procedure are in the | | | | PDT | | results section. | + +--------+ + + + | PH, BODY FLUID | STAT | 05/26/2018 | | Results for this | | | | 2:12 PM | | procedure are in the | | | | PDT | | results section. | + +--------+ + + + | FLUID CULT W/GRAM | STAT | 05/26/2018 | | Results for this | | STAIN | | 2:12 PM | | procedure are in the | | | | PDT | | results section. | + +--------+ + + + | BODY FLUID CELL | STAT | 05/26/2018 | | Results for this | | COUNT | | 2:12 PM | | procedure are in the | | | | PDT | | results section. | + +--------+ + + + | PROCALCITONIN | STAT | 05/26/2018 | | Results for this | | | | 12:14 PM | | procedure are in the | | | | PDT | | results section. | + +--------+ + + + | BRAIN NATRIURETIC | STAT | 05/26/2018 | | Results for this | | PEPTIDE | | 12:14 PM | | procedure are in the | | | | PDT | | results section. | + +--------+ + + + | [facility] CARD PANEL W/O | STAT | 05/26/2018 | | Results for this | | TRP (ED ONLY) | | 12:14 PM | | procedure are in the | | | | PDT | | results section. | + +--------+ + + + | THORACENTESIS | Routin | 05/26/2018 | | Results for this | | | e | 12:01 PM | | procedure are in the | | | | PDT | | results section. | + +--------+ + + + | PARACENTESIS | Routin | 05/26/2018 | | Results for this | | | e | 12:01 PM | | procedure are in the | | | | PDT | | results section. | + +--------+ + + + | ED INFORMATION | Routin | 05/26/2018 | | Results for this | | EXCHANGE | e | 11:59 AM | | procedure are in the | | | | PDT | | results section. | + +--------+ + + + | XR CHEST 1 VIEW | Routin | 05/26/2018 | Chest pain, | Results for this | | | e | 9:55 AM | unspecified type | procedure are in the | | | | PDT | | results section. | + +--------+ + + + from Last 3 Months Results CBC W/Auto Diff (Reflex to Manual) (06/01/2018 4:43 AM)Only the most recent of 6 results w ithin the time period is included. + + + + + | Component | Value | Ref Range | Performed At | + + + + + | WBC | 5.40 | 3.80 - 11.00 K/uL | [facility] | | | | | [facility] | + + + + + | RBC | 2.95 (L) | 3.70 - 5.10 M/uL | [facility] | | | | | [facility] | + + + + + | HGB | 10.7 (L) | 11.3 - 15.5 g/dL | [facility] | | | | | [facility] | + + + + + | HCT | 32.4 (L) | 34.0 - 46.0 % | [facility] [...] + + + + | MCHC | 33.0 | 32.0 - 35.5 g/dL | [facility] | | | | | [facility] | + + + + + | RDW SD | 56.9 (H) | 37 - 53 fl | [facility] | | | | | [facility] | + + + + + | PLT | 119 (L) | 150 - 400 K/uL | [facility] | | | | | [facility] | + + + + + | MPV | 9.6 | fl | [facility] | | | | | [facility] | + + + + + | DIFF TYPE | AUTOMATED | | [facility] | | | | [facility] | + + + + + | NEUTROPHILS | 54.51 | % | [facility] | | | | | [facility] | + + + + + | LYMPHOCYTES | 21.23 | % | [facility] | | | | | [facility] | + + + + + | MONOCYTES | 8.93 | % | [facility] | | | | | [facility] | + + + + + | EOSINOPHILS | 14.69 | % | [facility] | | | | | [facility] | + + + + + | BASOPHILS | 0.64 | % | [facility] | | | | | [facility] | + + + + + | NEUTROPHILS ABS | 2.94 | 1.90 - 7.40 K/uL | [facility] | | | | | [facility] | + + + + + | LYMPHOCYTES ABS | 1.15 | 1.00 - 3.90 K/uL | [facility] | | | | | [facility] | + + + + + | MONOCYTES ABS | 0.48 | 0.00 - 0.80 K/uL | [facility] | | | | | [facility] | + + + + + | EOSINOPHILS ABS | 0.79 (H) | 0.00 - 0.50 K/uL | [facility] | | | | | [facility] | + + + + + | BASOPHILS ABS | 0.04 | 0.00 - 0.10 K/uL | [facility] | | | | | [facility] | + + + + + | MORPHOLOGY | 2+Comment: | | [facility] | | | MACRO1+ANISONORMAL PLT | | LABORATORY | | | MORPHTesting performed | | | | | at [facility], [address] | | | | | [employer], | | | | | [place] [address] | | | | |Testing performed at [facility], [address] [place] [address] | | | | | | | | + + + + + + + | Specimen | + + | Blood | + + + + + + + | Performing | Address | City/State/Zipcode | Phone Number | | Organization | | | | + + + + + | [facility] | [address] | [place] [address] | [phone] | | LABORATORY | [address] | | | + + + + + Comprehensive metabolic panel (06/01/2018 4:43 AM)Only the most recent of 5 results within the time period is included. + + + + + | Component | Value | Ref Range | Performed At | + + + + + | SODIUM | 139 | 135 - 145 mmol/L | [facility] | | | | | LABORATORY | + + + + + | POTASSIUM | 4.7 | 3.5 - 4.9 mmol/L | [facility] | | | | | LABORATORY | + + + + + | CHLORIDE | 101 | 99 - 109 mmol/L | [facility] | | | | | LABORATORY | + + + + + | CO2 | 33 (H) | 23 - 32 mmol/L | [facility] | | | | | LABORATORY | + + + + + | ANION GAP AGAP | 10 | 5 - 20 mmol/L | [facility] | | | | | LABORATORY | + + + + + | GLUCOSE | 82 | 65 - 99 mg/dL | [facility] | | | | | LABORATORY | + + + + + | BUN | 27 (H) | 8 - 25 mg/dL | [...] + + + + | CALCIUM | 9.7 | 8.5 - 10.5 mg/dL | [facility] | | | | | LABORATORY | + + + + + | TOTAL PROTEIN | 6.5 | 6.3 - 8.2 g/dL | [facility] | | | | | LABORATORY | + + + + + | Albumin | 3.0 (L) | 3.6 - 5.0 g/dL | [facility] | | | | | LABORATORY | + + + + + | GLOBULIN | 3.5 | 1.3 - 4.9 g/dL | [facility] [...] + + + | ALK PHOS | 138 (H) | 35 - 115 U/L | [facility] | | | | | LABORATORY | + + + + + | AST | 97 (H) | 10 - 45 U/L | [facility] | | | | | LABORATORY | + + + + + | ALT | 231 (H) | 10 - 65 U/L | [facility] [...] | | | | performed at [facility], [address] | | | | [address], | | | | | [place] [address] | | | + + + + + + + | Specimen | + + | Blood | + + + + + + + | Performing | Address | City/State/Zipcode | Phone Number | | Organization | | | | + + + + + | [facility] [facility] | [address] | [place] [address] | [phone] | | LABORATORY | Sandip. | | | + + + + + HEMODIALYSIS INPATIENT (05/30/2018 10:14 AM) + + + | Narrative | Performed At | + + + | René Anguiano MD 05/31/2018 4:56 PM Hospital Problem | | | List: Active Problems: ESRD on hemodialysis SOB (shortness | | | of breath) Pleural effusion on right Non-compliance | | | Chronic systolic heart failure (HCC) Hyperphosphatemia | | | Hyperkalemia Pulmonary artery hypertension (HCC) | | | Non-rheumatic tricuspid valve insufficiency Non-rheumatic | | | mitral regurgitation Diastolic dysfunction with chronic heart | | | failure (HCC) At high risk for electrolyte imbalance Acute | | | systolic CHF (congestive heart failure) ([facility]) Transaminitis | | | The patient is seen & examined today on HD. she says that she feels | | | 'stomach pains' today. she denies any cp, dyspnea. She was | | | admitted with symptomatic large right pleural effusion. She | | | presented with: Had dyspnea on minimal exertion starting this last | | | Monday. Worsened over the next few days. Was put on "an | | | antibiotic" for pneumonia at [facility] ED. Was throwing up & could not | | | keep it down. Severe worsening of the dyspnea yesterday. This week | | | she had 1.5 dialysis treatments. In the ED she had 4L paracentesis, | | | and 1L thoracentesis yesterday (05/26). The following portions | | | of the patient's history were reviewed and updated as appropriate: | | | laboratory data, allergies, current medications, and problem list. | | | Scheduled Meds: | | | calcium carbonate 1,000 mg Oral BID | | | cetirizine 10 mg Oral Daily | | | clopidogrel 75 mg Oral Daily | | | colchicine 0.6 mg Oral Daily | | | heparin (porcine) 1,000 Units Intravenous Once in dialysis | | | heparin (porcine) 500 Units Intravenous Once in dialysis | | | heparin (porcine) 5000 unit/0.5mL 5,000 Units Subcutaneous 3 | | | times per day | | | hydrALAZINE 50 mg Oral TID | | | isosorbide dinitrate 40 mg Oral TID | | | lactulose 30 g Oral Daily | | | metoprolol 25 mg Oral Daily | | | nicotine 1 patch Transdermal Daily | | | pantoprazole 40 mg Oral QAM AC | | | senna-docusate 3 tablet Oral Nightly | | | sevelamer 1,600 mg Oral TID WC Continuous Infusions: PRN | | | Meds:.acetaminophen OR acetaminophen, benzonatate, | | | diphenhydrAMINE, ondansetron OR ondansetron, oxyCODONE, | | | polyethylene glycol, promethazine, sodium chloride (bolus), sodium | | | chloride (bolus), sodium chloride, zolpidem BP 116/69 | Pulse | | | 79 | Temp 97.6 F (36.4 C) | Resp 20 | Ht 1.702 m (5' | | | 7") | Wt 96.9 kg (213 lb 10 oz) | SpO2 94% | ? | | | No | BMI 33.46 kg/m General appearance: Pleasant, not in | | | acute distress. Lungs: Clear to auscultation on left, | | | significantly decreased air entry on right lower mid field. There | | | are no wheezes. Heart: Regular rate and rhythm without any rub, | | | gallop. Grade 2/6 systolic murmur best heard at the apex. Abdominal | | | exam: Soft and tender mid and upper with mild pressure. | | | Extremities: Warm to touch with no leg edema. There is no | | | cyanosis. Neurological: Awake, alert, and oriented to time, | | | place, and person. Normal gross motor power. There is no | | | asterixis. Access: LUE AVF with good flow Lab Results | | | Component Value Date BUN 34 (H) 05/30/2018 CREATININE 7.8 (H) | | | 05/30/2018 EGFR 6 (L) 05/30/2018 NA 138 05/30/2018 K 3.8 | | | 05/30/2018 CL 97 (L) 05/30/2018 CO2 31 05/30/2018 CA 9.5 | | | 05/30/2018 PHOS 6.3 (H) 05/28/2018 MG 2.7 (H) 05/27/2018 ALB | | | 2.9 (L) 05/30/2018 HGB 10.7 (L) 05/30/2018 Assessment: | | | Shiraz is a 23 y.o. female patient with ESRD, HD. Longstanding | | | history of non-adherence to dialysis or diet restrictions | | | Presented with: worsening dyspnea, at rest the day of presentation | | | Admitted with: symptomatic large right pleural effusion Anemia of | | | ESRD hypoalb Mild hypermag hyperphos Complications during HD | | | today: none Recommendations: Next dialysis treatment per the | | | prelim submitted orders, MWF UF as tolerated ESTEFANY as indicated with | | | HD Protein supplements stressed Strict I/O and Daily Weights | | | Encourage IS KRISHNA Waters Addendum: I have seen | | | & personally examined the pt with Trent KELLER; I have | | | discussed the case with him. I agree with his findings & | | | documentation. KRISHNA Waters started the documentation. | | | Note, review of records, exam, recs, plan, discussions were | | | completed & approved by myself. I have made changes to the above | | | note, where appropriate, and discussed the content and the changes | | | with the author on 05/30. René Anguiano MD | | + + + X-ray chest 1 view (05/29/2018 1:38 PM)Only the most recent of 2 results within the time p shawn is included. + + + | Impressions | Performed At | + + + | Moderate improvement of the right-sided pleural effusion. Right | [facility] | | basilar opacity to likely resent atelectasis and/or airspace disease. | RADIOLOGY | | Signed by: MD Kush, Xander Sign Date/Time: 05/29/2018 2:32 PM | | + + + + + + | Narrative | Performed At | + + + | CHEST ONE VIEW CLINICAL INFORMATION: Thoracentesis COMPARISON: | [facility] | | XR CHEST 2 VIEW FRONTAL AND LATERAL (05/27/2018); CT CHEST WO CONTRAST | RADIOLOGY | | (05/26/2018); FINDINGS: The heart is enlarged but stable in | | | size. No pulmonary vascular congestion. No | | | pneumothorax. Moderate proven of the right-sided pleural | | | effusion. Right basilar opacity to likely resent atelectasis | | | and/or airspace disease. Left lung and pleural spaces clear. | | + + + + + | Procedure Note | + + | Cedric, Rad Results In - 05/29/2018 2:35 PM PDT CHEST ONE VIEW | | CLINICAL INFORMATION: | | Thoracentesis | | COMPARISON: | | XR CHEST 2 VIEW FRONTAL AND LATERAL (05/27/2018); CT CHEST WO CONTRAST | | (05/26/2018); | | FINDINGS: | | The heart is enlarged but stable in size. No pulmonary vascular | | congestion. No pneumothorax. Moderate proven of the right-sided | | pleural effusion. Right basilar opacity to likely resent atelectasis | | and/or airspace disease. Left lung and pleural spaces clear. | | IMPRESSION: | | Moderate improvement of the right-sided pleural effusion. | | Right basilar opacity to likely resent atelectasis and/or airspace | | disease. | | Signed by: MD Currie Chet | | Sign Date/Time: 05/29/2018 2:32 PM | + + + + + + + | Performing | Address | City/State/Zipcode | Phone Number | | Organization | | | | + + + + + | [facility] | [address] | [place] [address] | | + + + + + Cholesterol, body fluid (05/29/2018 12:56 PM) + + + + + | Component | Value | Ref Range | Performed At | + + + + + | FLUID CHOLESTEROL | 56Comment: This is not a | mg/dL | [facility] | | | linux systems analyst validated | | LABORATORY | | | sample type for this | | | | | method. No reference | | | | | ranges have been | | | | | established.Testing | | | | | performed at [facility], [address] | | | | [facility], | | | | | [place] [address] | | | + + + + + + + | Specimen | + + | Body Fluid - | | Pleural, Right | + + + + + + + | Performing | Address | City/State/Zipcode | Phone Number | | Organization | | | | + + + + + | [facility] | [address] | [place] [address] | [phone] | | LABORATORY | [address] | | | + + + + + Gram stain (05/29/2018 12:56 PM) + + + + + | Component | Value | Ref Range | Performed At | + + + + + | Specimen Description | THORACIC FLUID | | [facility] | | | | | LABORATORY | + + + + + | CULTURE | 1+ | | [facility] | | | | | LABORATORY | + + + + + | CULTURE | WBC'S SEEN | | [facility] | | | | | LABORATORY | + + + + + | CULTURE | NO ORGANISMS SEEN | | [facility] | | | | | LABORATORY | + + + + + + + | Specimen | + + | Sputum - Thoracic | | Fluid | + + + + + + + | Performing | Address | City/State/Zipcode | Phone Number | | Organization | | | | + + + + + | [facility] | [address] | [place] [address] | [phone] | | LABORATORY | [address] | | | + + + + + Lactate dehydrogenase, body fluid (05/29/2018 12:56 PM) + + + + + | Component | Value | Ref Range | Performed At | + + + + + | FLUID LDH | 151Comment: This is not | U/L | [facility] | | | a linux systems analyst validated | | LABORATORY | | | sample type for this | | | | | method. No reference | | | | | ranges have been | | | | | established.Testing | | | | | performed at [facility], [address] | | | | [facility], | | | | | [place] [address] | | | + + + + + + + | Specimen | + + | Body Fluid - | | Pleural, Right | + + + + + + + | Performing | Address | City/State/Zipcode | Phone Number | | Organization | | | | + + + + + | [facility] | [address] | [place] [address] | [phone] | | LABORATORY | [address] | | | + + + + + US thoracentesis (includes imaging) (05/29/2018 12:31 PM) + + | Specimen | + + | Body Fluid | + + + + + | Impressions | Performed At | + + + | Uncomplicated right thoracentesis. Drainage of 1500 cc clear | [facility] | | straw-colored fluid. Signed by: Quang Bustos Date/Time: | RADIOLOGY | | 05/29/2018 3:39 PM | | + + + + + + | Narrative | Performed At | + + + | ULTRASOUND GUIDED RIGHT THORACENTESIS CLINICAL INFORMATION: | [facility] | | therapeutic thoracentesis PROCEDURE: Prior to the procedure, risks | RADIOLOGY | | and benefits were explained to the patient and informed written and | | | verbal consent obtained. Patient was placed in upright position and | | | location adjacent to pleural fluid marked on the skin using | | | ultrasound guidance and the area prepped and draped in the usual | | | sterile fashion. Using lidocaine for local anesthesia, the pleural | | | space is punctured with an 8-Trinidadian thoracentesis catheter. Fluid is | | | aspirated without complication. The patient tolerated the procedure | | | well. No immediate complications. Estimated Blood Loss: Minimal. | | + + + + + | Procedure Note | + + | Sonido Steele Results In - 05/29/2018 3:42 PM PDT ULTRASOUND GUIDED RIGHT THORACENTESIS | | CLINICAL INFORMATION: | | therapeutic thoracentesis | | PROCEDURE: | | Prior to [...] the pleural space is punctured with an 8-Trinidadian | | thoracentesis catheter. Fluid is aspirated without complication. The | | patient tolerated the procedure well. No immediate complications. | | Estimated Blood Loss: Minimal. | | IMPRESSION: | | Uncomplicated right thoracentesis. Drainage of 1500 cc clear | | straw-colored fluid. | | Signed by: Quang Bustos | | Sign Date/Time: 05/29/2018 3:39 PM | + + + + + + + | Performing | Address | City/State/Zipcode | Phone Number | | Organization | | | | + + + + + | [facility] | [address] | [facility] [address] | | + + + + + APTT (05/29/2018 8:52 AM) + + + + + | Component | Value | Ref Range | Performed At | + + + + + | APTT | 29Comment: Testing | 23 - 32 seconds | [facility] | | | performed at [facility];[address] | | | | | [address];[place] | | | | | [address] | | | + + + + + + + | Specimen | + + | Blood | + + + + + + + | Performing | Address | City/State/Zipcode | Phone Number | | Organization | | | | + + + + + | [facility] | [address] | [facility] [place] [address] | | + + + + + Protime-INR (05/29/2018 8:52 AM) + + + + + | Component | Value | Ref Range | Performed At | + + + + + | INR | 1.5Comment: REFERENCE | | [facility] | | | RANGE:0.9 - | [...] | | | | | performed at [facility] | | | | | [facility];[place], [place] | | | | | [address] | | | + + + + + + + | Specimen | + + | Blood | + + + + + + + | Performing | Address | City/State/Zipcode | Phone Number | | Organization | | | | + + + + + | [facility] | [address] | [place] [address] | | + + + + + US abdomen limited (05/28/2018 7:26 PM) + + + | Impressions | Performed At | + + + | Upper abdomen ultrasound without identified gallbladder abnormality | [facility] | | or biliary dilatation. Moderate ascites and right pleural effusion | RADIOLOGY | | as seen on recent CT. Patient is on peritoneal dialysis. Signed by: | | | MD Mejia, Stevo Sign Date/Time: 05/28/2018 9:24 PM | | + + + + + + | Narrative | Performed At | + + + | ULTRASOUND ABDOMEN, LIMITED CLINICAL INFORMATION: Abdominal pain. | [facility] | | COMPARISON: IR AV FISTULAGRAM IMAGING (09/01/2015); CT CHEST WO | RADIOLOGY | | CONTRAST (05/26/2018); PROCEDURE: Evaluation of the gallbladder, if | | | present, common bile duct, liver, right kidney and pancreas. | | | FINDINGS: Liver: Normal contour and normal echogenicity with | | | sagittal length of cm. Hepatopetal portal venous flow. Right dome | | | liver smooth hyperechoic 1.4 x 1.0 x 1.7 cm area consistent with a | | | hemangioma. Biliary: The CBD diameter is 3.4 mm. There is no intra or | | | extrahepatic bile duct dilatation. Gallbladder: No | | | gallstones. No tenderness over the gallbladder. Pancreas: Pancreas | | | is seen at the head, body and shows normal echogenicity without | | | ductal dilatation or fluid collections. Splenomegaly again noted 15.8 | | | cm. Bilateral kidneys is atrophic end-stage size without | | | hydronephrosis, stone or mass. Free fluid: Prominent ascites in this | | | patient on peritoneal dialysis. Large right pleural effusion seen as | | | also seen on CT 05/26/2018. | | + + + + + | Procedure Note | + + | Cedric, Rad Results In - 05/28/2018 9:28 PM PDT ULTRASOUND ABDOMEN, LIMITED | | CLINICAL INFORMATION: | | Abdominal pain. | | COMPARISON: | | IR AV FISTULAGRAM IMAGING (09/01/2015); CT CHEST WO CONTRAST (05/26/2018); | | PROCEDURE: | | Evaluation of the gallbladder, if present, common bile duct, liver, | | right kidney and pancreas. | | FINDINGS: | | Liver: Normal contour and normal echogenicity with sagittal length of | | cm. Hepatopetal portal venous flow. | | Right dome liver smooth hyperechoic 1.4 x 1.0 x 1.7 cm area consistent | | with a hemangioma. | | Biliary: The CBD diameter is 3.4 mm. There is no intra or extrahepatic | | bile duct dilatation. | | Gallbladder: No gallstones. No tenderness over the gallbladder. | | Pancreas: Pancreas is seen at the head, body and shows normal | | echogenicity without ductal dilatation or fluid collections. | | Splenomegaly again noted 15.8 cm. | | Bilateral kidneys is atrophic end-stage size without hydronephrosis, | | stone or mass. | | Free fluid: Prominent ascites in this patient on peritoneal dialysis. | | Large right pleural effusion seen as also seen on CT 05/26/2018. | | IMPRESSION: | | Upper abdomen ultrasound without identified gallbladder abnormality or | | biliary dilatation. | | Moderate ascites and right pleural effusion as seen on recent CT. | | Patient is on peritoneal dialysis. | | Signed by: MD Ba Gregory | | Sign Date/Time: 05/28/2018 9:24 PM | + + + + + + + | Performing | Address | City/State/Zipcode | Phone Number | | Organization | | | | + + + + + | [facility] | [address] | [place] [address] | | + + + + + Troponin I (05/28/2018 1:59 PM)Only the most recent of 2 results within the time period is included. + + + + + | Component | Value | Ref Range | Performed At | + + + + + | TROPONIN I | 0.037Comment: 0.04 | 0.00 - 0.04 ng/mL | [facility] | | | ng/mL or | [...] performed at | | | | | [facility];[address] [place] [address] | | | | | [facility];[place] [address] | | | + + + + + + + | Specimen | + + | Blood | + + + + + + + | Performing | Address | City/State/Zipcode | Phone Number | | Organization | | | | + + + + + | [facility] | [address] | [place] [address] | | + + + + + HEMODIALYSIS INPATIENT (05/28/2018 1:34 PM) + + + | Narrative | Performed At | + + + | René Anguiano MD 05/28/2018 6:46 PM Hospital Problem | | | List: Active Problems: ESRD on hemodialysis SOB (shortness | | | of breath) Pleural effusion on right Non-compliance | | | Chronic systolic heart failure (HCC) Hyperphosphatemia | | | Hyperkalemia Pulmonary artery hypertension (HCC) | | | Non-rheumatic tricuspid valve insufficiency Non-rheumatic | | | mitral regurgitation Diastolic dysfunction with chronic heart | | | failure (HCC) At high risk for electrolyte imbalance The | | | patient is seen & examined during dialysis. she says that she feels | | | 'ok' today. she denies any cp, dyspnea. The following portions | | | of the patient's history were reviewed and updated as appropriate: | | | laboratory data, allergies, current medications, and problem list. | | | Scheduled Meds: | | | calcium carbonate 1,000 mg Oral BID | | | cetirizine 10 mg Oral Daily | | | clopidogrel 75 mg Oral Daily | | | heparin (porcine) 5000 unit/0.5mL 5,000 Units Subcutaneous 3 | | | times per day | | | hydrALAZINE 10 mg Oral TID | | | isosorbide mononitrate 30 mg Oral QPM | | | losartan 25 mg Oral Daily | | | metoprolol 25 mg Oral BID | | | nicotine 1 patch Transdermal Daily | | | pantoprazole 40 mg Oral QAM AC | | | senna-docusate 3 tablet Oral Nightly | | | sevelamer 1,600 mg Oral TID WC Continuous Infusions: PRN | | | Meds:.acetaminophen OR acetaminophen, benzonatate, | | | HYDROcodone-acetaminophen, ondansetron OR ondansetron, | | | polyethylene glycol, promethazine, zolpidem BP 110/75 | Pulse | | | 69 | Temp 97.1 F (36.2 C) (Oral) | Resp 18 | Ht 1.702 m | | | (5' 7") | Wt 96.9 kg (213 lb 10 oz) | SpO2 91% | | | | ? No | BMI 33.46 kg/m General | | | appearance: Pleasant, not in acute distress. Lungs: Clear to | | | auscultation bilaterally. There are no wheezes. Heart: Regular | | | rate and rhythm without any rub, gallop. Grade 2/6 systolic murmur | | | best heard at the apex. Abdominal exam: Soft and nontender. | | | Extremities: Warm to touch with no leg edema. There is no | | | cyanosis. Neurological: Awake, alert, and oriented to time, | | | place, and person. Normal gross motor power. There is no | | | asterixis. Access: LUE AVF with good flow Lab Results | | | Component Value Date BUN 43 (H) 05/28/2018 CREATININE 7.97 (H) | | | 05/28/2018 EGFR 6 (L) 05/28/2018 NA 141 05/28/2018 K 4.3 | | | 05/28/2018 CL 101 05/28/2018 CO2 29 05/28/2018 CA 9.1 | | | 05/28/2018 PHOS 6.3 (H) 05/28/2018 MG 2.7 (H) 05/27/2018 ALB | | | 3.6 05/28/2018 HGB 11.9 05/28/2018 Assessment: Ms. Louise | | | is a 23 y.o. female patient with ESRD, HD. Complications identified | | | during her dialysis treatment: none. Recommendations: Next | | | dialysis treatment per the prelim submitted orders, MWF UF as | | | tolerated ETSEFANY as indicated with HD Protein supplements stressed | | | Strict I/O and Daily Weights Encourage IS KRISHNA Waters | | | Addendum: I have seen & personally examined the pt with | | | Trent KELLER; I have discussed the case with him. I agree | | | with his findings & documentation. KRISHNA Waters started | | | the documentation. Note, review of records, exam, recs, plan, | | | discussions were completed & approved by myself. I have made | | | changes to the above note, where appropriate, and discussed the | | | content and the changes with the author on 05/28. René Anguiano MD | | | | | + + + Hepatitis panel,acute (05/28/2018 12:36 PM) + + + + + | Component | Value | Ref Range | Performed At | + + + + + | HAV AB,IGM | NON REACTIVE | NON REACTIVE | [facility] | | | | | LABORATORY | + + + + + | HEP B SURFACE AG | NON REACTIVE | NON REACTIVE | [facility] | | | | | LABORATORY | + + + + + | ANTI HEP B CORE,IGM | NON REACTIVE | NON REACTIVE | [facility] | | | | | LABORATORY | + + + + + | HEPATITIS C | NON REACTIVE | NON REACTIVE | [facility] | | | | | LABORATORY | + + + + + | HEPATITIS INTERP | No serologic evidence of | | [facility] | | | HAV, HBV, or HCV | | LABORATORY | | | infection.Comment: | | | | | Testing performed at | | | | | [facility], [address] [place] [address] | | | | | [place] | | | | | [address] | | | + + + + + + + | Specimen | + + | Blood | + + + + + + + | Performing | Address | City/State/Zipcode | Phone Number | | Organization | | | | + + + + + | [facility] | [address] | [place] [address] | [phone] | | LABORATORY | [address] | | | + + + + + HIV 1/2 Ab reflex (05/28/2018 12:36 PM) + + + + + | Component | Value | Ref Range | Performed At | + + + + + | HIV1/HIV2 | NON REACTIVEComment: THE | NON REACTIVE | [facility] | | | NON REACTIVE HIV 1/2 | | LABORATORY | | | RESULT INDICATES THAT | | | | | NEITHER ANTIBODIES NOR | | | | | P24 ANTIGEN TO HIV 1/2 | | | | | HAVE BEEN DETECTED IN | | | | | THIS SPECIMEN. THIS | | | | | RESULT DOES NOT PRECLUDE | | | | | PREVIOUS EXPOSURE OR | | | | | INFECTION.Testing | | | | | performed at [facility], [address] | | | | [facility], | | | | | [place] [address] | | | + + + + + + + | Specimen | + + | Blood | + + + + + + + | Performing | Address | City/State/Zipcode | Phone Number | | Organization | | | | + + + + + | [facility] | [address] | [place] [address] | [phone] | | LABORATORY | [address] | | | + + + + + Renal function panel (05/28/2018 12:09 PM) + + + + + | Component | Value | Ref Range | Performed At | + + + + + | SODIUM | 141 | 135 - 145 mmol/L | [facility] | + + + + + | POTASSIUM | 4.3 | 3.5 - 4.9 mmol/L | [facility] | + + + + + | CHLORIDE | 101 | 99 - 109 mmol/L | [facility] | + + + + + | CO2 | 29 | 23 - 32 mmol/L | [facility] | + + + + + | ANION GAP AGAP | 15 | 5 - 20 mmol/L | [facility] | + + + + + | GLUCOSE | 78 | 65 - 99 mg/dL | [facility] | + + + + + | BUN | 43 (H) | 8 - 25 mg/dL | [facility] | + + + + + | CREATININE | 7.97 (H) | 0.50 - 1.00 mg/dL | [facility] | + + + + + | CALCIUM | 9.1 | 8.5 - 10.5 mg/dL | [facility] | + + + + + | Albumin | 3.6 | 3.6 - 5.0 g/dL | [facility] | + + + + + | PHOSPHORUS | 6.3 (H) | 2.3 - 4.8 mg/dL | [facility] | + + + + + | EGFR | 6 (L)Comment: GFR <60: | >60 mL/min/1.73m2 | [facility] | | | CHRONIC KIDNEY DISEASE, [...] the | | | | | MDRD IDWV traceable | | | | | equation.Testing | | | | | performed at [facility];[address] | | | | | [facility];[place], [place] | | | | | [address] | | | + + + + + + + | Specimen | + + | Blood - Blood | + + + + + + + | Performing | Address | City/State/Zipcode | Phone Number | | Organization | | | | + + + + + | [facility] | [address] | [place] [address] | | + + + + + EKG STANDARD 12 LEAD (05/28/2018 11:58 AM) + + + + + | Component | Value | Ref Range | Performed At | + + + + + | Ventricular Rate | 75 | BPM | [facility] | + + + + + | Atrial Rate | 75 | BPM | [facility] | + + + + + | P-R Interval | 182 | ms | [facility] | + + + + + | QRS Duration | 84 | ms | [facility] | + + + + + | Q-T Interval | 388 | ms | [facility] | + + + + + | QTC Calculation | 433 | ms | [facility] | | (Bezet) | | | | + + + + + | Calculated P [place] | 24 | degrees | [facility] | + + + + + | Calculated R [place] | 24 | degrees | [facility] | + + + + + | Calculated T [place] | 103 | degrees | [facility] | + + + + + | Diagnosis | Normal sinus rhythmPoor | | [facility] | | | R - progressionAbnormal | | | | | ECGWhen compared with | | | | | ECG of 07-MAR-2014 | | | | | 16:29,Nonspecific T wave | | | | | abnormality now evident | | | | | in Inferior leadsT wave | | | | | inversion now evident | | | | | in Lateral | | | | | leadsConfirmed by BRIONNA | | | | | JESSICA ([id number]) on 05/29/2018 | | | | | 1:05:04 PM | | | + + + + + + + + + + | Performing | Address | City/State/Zipcode | Phone Number | | Organization | | | | + + + + + | [facility] | [address] [address] | [place] [address] | | + + + + + Sedimentation rate, automated (05/28/2018 9:23 AM) + + + + + | Component | Value | Ref Range | Performed At | + + + + + | ESR | 2Comment: Testing | 0 - 20 mm/Hr | [facility] | | | performed at [facility], [address] | | LABORATORY | | | [address] [place], | | | | | [place] [address] | | | + + + + + + + | Specimen | + + | Blood | + + + + + + + | Performing | Address | City/State/Zipcode | Phone Number | | Organization | | | | + + + + + | [facility] | [address] | [place] [address] | [phone] | | LABORATORY | [address] | | | + + + + + C-reactive protein (05/28/2018 9:23 AM) + + + + + | Component | Value | Ref Range | Performed At | + + + + + | CRP | 5.1 (H)Comment: Testing | <0.5 mg/dL | [facility] | | | performed at [facility], [address] | | LABORATORY | | | [facility], | | | | | [place] [address] | | | + + + + + + + | Specimen | + + | Blood | + + + + + + + | Performing | Address | City/State/Zipcode | Phone Number | | Organization | | | | + + + + + | [facility] | [address] [place] [address] | [place] [address] | [phone] | | LABORATORY | [address] | | | + + + + + hCG, serum, qualitative (05/28/2018 9:23 AM) + + + + + | Component | Value | Ref Range | Performed At | + + + + + | TEST,SERUM | NEGATIVEComment: Testing | NEGATIVE | [facility] | | | performed at [facility], [address] | | LABORATORY | | | [address], | | | | | [place] [address] | | | + + + + + + + | Specimen | + + | Blood | + + + + + + + | Performing | Address | City/State/Zipcode | Phone Number | | Organization | | | | + + + + + | [facility] | [address] | [place] [address] | [phone] | | LABORATORY | [address] | | | + + + + + TSH (05/28/2018 9:23 AM) + + + + + | Component | Value | Ref Range | Performed At | + + + + + | TSH | 1.270Comment: Testing | 0.450 - 5.100 uIU/mL | [facility] | | | performed at [facility], [address] | | LABORATORY | | | [facility], | | | | | [place] [address] | | | + + + + + + + | Specimen | + + | Blood | + + + + + + + | Performing | Address | City/State/Zipcode | Phone Number | | Organization | | | | + + + + + | [facility] | [address] | [place] [address] | [phone] | | LABORATORY | [address] | | | + + + + + Pathology cytology - fluid (05/28/2018 8:00 AM) + + | Specimen | + + | Body Fluid | + + + + + | Narrative | Performed At | + + + | ORDERING PHYSICIAN: Aneudy Hunter MD PATIENT NAME: [facility] | | DARA LOUISE GENDER: Alysia : 1995 | PATHOLOGY | | SPECIMEN(S): A PLEURAL FLUID, RIGHT GROSS DESCRIPTION: 50 ML LIGHT | | | BROWN CLOUDY FLUID WITH LARGE WHITE FRAGMENTS CLINICAL | | | HISTORY: NO CLINICAL DATA PROVIDED LABORATORY PREPARATIONS: 1 | | | MONOLAYER, 1 CYTOLOGY CELL BLOCK CYTOLOGIC INTERPRETATION: Pleural | | | effusion: Negative for malignant cells. DESCRIPTION: The | | | preparations contain mesothelial cells, rare inflammatory cells, and | | | acellular proteinaceous material. Atypical cytologic findings are | | | not encountered. SPECIMEN ADEQUACY: Satisfactory for Evaluation | | | PERFORMING LABORATORY: Technical preparation was performed by [facility] | | | [employer], [address] [place] [address] | | | (Test Cell Technician: Matt Claudio D.O.; CLIA#: [id number]). | | | Professional interpretation was performed by [employer], | | | [address] [address] | | | (Test Cell Technician: Daniel Larson M.D.; CLIA#: [id number]).6 | | | Diagnostician: Marie BROOKS ([facility]) Cigarette Examiner | | | Diagnostician: Anahy Da Silva MD Pathologist Electronically Signed | | | 05/30/2018 | | + + + + +---------+ + + | Performing | Address | City/State/Zipcode | Phone Number | | Organization | | | | + +---------+ + + | [facility] | | | | + +---------+ + + Sputum culture (05/27/2018 8:15 PM) + + + + + | Component | Value | Ref Range | Performed At | + + + + + | Specimen Description | SPUTUM | | [facility] | | | | | LABORATORY | + + + + + | GRAM STAIN | LESS THAN 10 WBCS/LPF | | [facility] | | | | | LABORATORY | + + + + + | GRAM STAIN | LESS THAN 10 SEC/LPF | | [facility] | | | | | LABORATORY | + + + + + | GRAM STAIN | NO ORGANISMS SEEN | | [facility] | | | | | LABORATORY | + + + + + | CULTURE | 1+ | | [facility] | | | | | LABORATORY | + + + + + | CULTURE | NORMAL UPPER RESPIRATORY | | [facility] | | | [facility] | | LABORATORY | + + + + + + + | Specimen | + + | Sputum - Sputum | + + + + + + + | Performing | Address | City/State/Zipcode | Phone Number | | Organization | | | | + + + + + | [facility] | [address] | [place] [address] | [phone] | | LABORATORY | [address] | | | + + + + + Hepatitis panel, chronic (05/27/2018 5:58 PM) + + + + + | Component | Value | Ref Range | Performed At | + + + + + | Hep A Total Ab | REACTIVE (A) | NON REACTIVE | [facility] | | | | | LABORATORY | + + + + + | HEP B SURFACE AG | NON REACTIVE | NON REACTIVE | [facility] | | | | | LABORATORY | + + + + + | HEP B CORE AB,TOTAL | NON REACTIVE | NON REACTIVE | [facility] | | | | | LABORATORY | + + + + + | HEP B SURFACE | 3.27 (H)Comment: | <1.00 IV | [facility] | | ANTIBODY | <1.00 | | LABORATORY | | | Non Immune1.00 OR | | | | | MORE Indicates | | | | | vaccine response or | | | | | response to HBV | | | | | infection. An Index | | | | | Value (IV) of 1.00 is | | | | | equivalent to 10 | | | | | mIU/mL. Samples with | | | | | an IV of 1.00 or greater | | | | | are considered reactive | | | | | (protected) in | | | | | accordance with CDC | | | | | Guidelines. | | | + + + + + | HEPATITIS C | NON REACTIVE | NON REACTIVE | [facility] | | | | | LABORATORY | + + + + + | HEPATITIS INTERP | Current or past HAV | | [facility] | | | infection. Past HBV | | LABORATORY | | | infection or | | | | | vaccination. No | | | | | serologic evidence of | | | | | HCV infection.Comment: | | | | | Testing performed at | | | | | [facility], [address] [facility] | | | | | [place] | | | | | [address] | | | + + + + + + + + + + | Performing | Address | City/State/Zipcode | Phone Number | | Organization | | | | + + + + + | [facility] | [address] | [place] [address] | [phone] | | LABORATORY | [address] | | | + + + + + Echo cardiac adult complete (05/27/2018 12:01 PM) + +---------+ + + | Component | Value | Ref Range | Performed At | + +---------+ + + | LV EF | 25 (LL) | 50 - 70 % | [facility] | | | | | RADIOLOGY | + +---------+ + + + + + | Impressions | Performed At | + + + | 1. Sinus rhythm. 2. A 2-dimensional transthoracic echocardiogram | [facility] | | with m-mode, spectral and color flow Doppler was perfomed. 3. This | RADIOLOGY | | was a technically adequate study. 4. Overall left ventricular | | | systolic function is severely impaired with, an EF between 20 - 25 %. | | | 5. The left ventricle cavity size is normal. 6. There is mild | | | concentric left ventricular hypertrophy. 7. There is severe global | | | hypokinesis of LV contractility. 8. There is septal flattening in | | | diastole which is consistent with right ventricular volume overload. | | | 9. Pseudonormal LV diastolic filling pattern, consistent with elevated | | | LA pressure and moderate dysfunction (Grade II). 10. The right | | | ventricle is moderately enlarged. 11. The right ventricular systolic | | | function is mildly impaired. 12. The left atrial size is normal. 13. | | | The right atrium is moderately enlarged. 14. The aortic valve is | | | trileaflet. 15. There is mild aortic regurgitation. 16. There is no | | | evidence of aortic stenosis. 17. The mitral valve is normal. 18. | | | Zodc-va-mbuwxkoi eccentric mitral regurgitation is present. 19. | | | Severe tricuspid regurgitation present. 20. The right ventricular | | | systolic pressure (pulmonary artery systolic pressure), as measured by | | | Doppler, is 30+15=45 mmHg. Non-coaptation of the TV leaflets. 21. | | | Mild pulmonic regurgitation. 22. There is no pericardial effusion. | | | 23. Pleural effusion present. 24. The IVC is dilated (>2.5cm) and | | | does not collapse with sniff, consistent with central venous pressures | | | of 15 mmHg. 25. The aortic root, ascending aorta and aortic arch are | | | normal. 26. No mass visualized 27. No clot visualized | | + + + + + + | Narrative | Performed At | + + + | Patient Name: DARA LOUISE Date of : 1995 | [facility] | | Performing Physician: Robel De La Fuente | RADIOLOGY | | [place] | | | | | | INDICATIONS SOB CONCLUSIONS 1. Sinus | | | rhythm. 2. A 2-dimensional transthoracic echocardiogram with m-mode, | | | spectral and color flow Doppler was perfomed. 3. This was a | | | technically adequate study. 4. Overall left ventricular systolic | | | function is severely impaired with, an EF between 20 - 25 %. 5. The | | | left ventricle cavity size is normal. 6. There is mild concentric | | | left ventricular hypertrophy. 7. There is severe global hypokinesis | | | of LV contractility. 8. There is septal flattening in diastole which | | | is consistent with right ventricular volume overload. 9. Pseudonormal | | | LV diastolic filling pattern, consistent with elevated LA pressure | | | and moderate dysfunction (Grade II). 10. The right ventricle is | | | moderately enlarged. 11. The right ventricular systolic function is | | | mildly impaired. 12. The left atrial size is normal. 13. The right | | | atrium is moderately enlarged. 14. The aortic valve is trileaflet. | | | 15. There is mild aortic regurgitation. 16. There is no evidence of | | | aortic stenosis. 17. The mitral valve is normal. 18. | | | Qpyr-ji-izypmfom eccentric mitral regurgitation is present. 19. | | | Severe tricuspid regurgitation present. 20. The right ventricular | | | systolic pressure (pulmonary artery systolic pressure), as measured by | | | Doppler, is 30+15=45 mmHg. Non-coaptation of the TV leaflets. 21. | | | Mild pulmonic regurgitation. 22. There is no pericardial effusion. | | | 23. Pleural effusion present. 24. The IVC is dilated (>2.5cm) and | | | does not collapse with sniff, consistent with central venous pressures | | | of 15 mmHg. 25. The aortic root, ascending aorta and aortic arch are | | | normal. 26. No mass visualized 27. No clot visualized FINDINGS | | | -------- ECG rhythm: Sinus rhythm. Study: A 2-dimensional | | | transthoracic echocardiogram with m-mode, spectral and color flow | | | Doppler was perfomed. Study: This was a technically adequate study. | | | Left Ventricle: Overall left ventricular systolic function is | | | severely impaired with, an EF between 20 - 25 %. Left Ventricle: The | | | left ventricle cavity size is normal. Left Ventricle: There is mild | | | concentric left ventricular hypertrophy. Left Ventricle: There is | | | severe global hypokinesis of LV contractility. Left Ventricle: There | | | is septal flattening in diastole which is consistent with right | | | ventricular volume overload. Left Ventricle: Pseudonormal LV | | | diastolic filling pattern, consistent with elevated LA pressure and | | | moderate dysfunction (Grade II). Right Ventricle: The right ventricle | | | is moderately enlarged. Right Ventricle: The right ventricular | | | systolic function is mildly impaired. Left Atrium: The left atrial | | | size is normal. Right Atrium: The right atrium is moderately | | | enlarged. Aortic Valve: The aortic valve is trileaflet. Aortic | | | Valve: There is mild aortic regurgitation. Aortic Valve: There is no | | | evidence of aortic stenosis. Mitral Valve: The mitral valve is | | | normal. Mitral Valve: Cppi-ul-qrqfixmr eccentric mitral | | | regurgitation is present. Tricuspid Valve: Severe tricuspid | | | regurgitation present. Tricuspid Valve: The right ventricular | | | systolic pressure (pulmonary artery systolic pressure), as measured by | | | Doppler, is 30+15=45 mmHg. Non-coaptation of the TV leaflets. | | | Pulmonic Valve: Mild pulmonic regurgitation. Pericardium: There is no | | | pericardial effusion. Pericardium: Pleural effusion present. | | | IVC/Hepatic Veins: The IVC is dilated (>2.5cm) and does not | | | collapse with sniff, consistent with central venous pressures of 15 | | | mmHg. Aorta: The aortic root and ascending aorta are normal in size. | | | Mass: No mass visualized Thrombus: No clot visualized | | | MEASUREMENTS RA Area: 28.23 cm2 Ao asc: 2.62 | | | cm Ao sinus: 2.49 cm IVC: 2.62 cm EDV(Teich): 118.24 ml | | | IVSd: 1.15 cm LVIDd: 4.99 cm LVPWd: 1.27 cm LVOT | | | Diam: 1.91 cm %FS: 9.56 % EF(Teich): 20.92 % | | | ESV(Teich): 93.49 ml IVSs: 1.28 cm LVIDs: 4.52 cm | | | LVPWs: 1.50 cm SV(Teich): 24.74 ml RA Major: 6.10 cm | | | RVIDd: 4.54 cm LVEF MOD A2C: 18.03 % SV MOD A2C: 26.28 | | | ml LVEF MOD A4C: 22.87 % SV MOD A4C: 31.28 ml EF | | | Biplane: 18.90 % LVEDV MOD BP: 142.56 ml LVESV MOD BP: | | | 115.61 ml LVEDV MOD A2C: 145.73 ml LVLd A2C: 9.47 cm LVEDV | | | MOD A4C: 136.75 ml LVLd A4C: 9.26 cm LVESV MOD A2C: | | | 119.44 ml LVLs A2C: 9.18 cm LVESV MOD A4C: 105.47 ml LVLs | | | A4C: 8.58 cm LAESV(A-L): 63.30 ml LAESV Index (A-L): | | | 30.43 ml/m2 LAAs A2C: 20.97 cm2 LAESV A-L A2C: 65.71 ml | | | LALs A2C: 5.68 cm LAAs A4C: 19.94 cm2 LAESV A-L A4C: | | | 60.20 ml LALs A4C: 5.60 cm TAPSE: 1.58 cm HR: 79.62 BPM | | | AV maxP.06 mmHg AV meanP.71 mmHg AV Vmax: 1.23 | | | m/s AV Vmean: 0.92 m/s AV VTI: 20.07 cm TIMA Vmax: 1.74 | | | cm2 TIMA (VTI): 1.93 cm2 AVAI Vmax: 0.00 cm2/m2 AVAI | | | (VTI): 0.00 cm2/m2 LVOT maxP.22 mmHg LVOT meanPG: | | | 1.03 mmHg LVSI Dopp: 18.70 ml/m2 LVSV Dopp: 38.91 ml LVOT | | | Vmax: 0.74 m/s LVOT Vmean: 0.45 m/s LVOT VTI: 13.50 cm | | | MV A Shahid: 0.54 m/s MV DecT: 117.65 ms MV E Shahid: 0.80 m/s | | | MV E/A Ratio: 1.46 Septal e': 0.03 m/s Septal E/e': | | | 26.26 Lateral e': 0.04 m/s Lateral E/e': 16.81 RV S': | | | 0.07 m/s TR maxP.08 mmHg TR Vmax: 2.74 m/s | | | Amortization Schedule Clerk: MOO Authenticated by: Robel Yusuf MD Report | | | Date/Time: 05-27-2018 13:59:57 | | + + + + + | Procedure Note | + + | Sonido Steele In - 05/27/2018 2:00 PM PDT Patient Name: DARA LOUISELucas of | | : 1995Accession: [id number] Physician: Robel Yusuf | | MD INDICATIONS S | | OBCONCLUSIONS 1. Sinus rhythm.2. A 2-dimensional transthoracic echocardiogram | | with m-mode, spectral and color flow Doppler was perfomed.3. This was a technically | | adequate study.4. Overall left ventricular systolic function is severely impaired with, | | an EF between 20 - 25 %.5. The left ventricle cavity size is normal.6. There is mild | | concentric left ventricular hypertrophy.7. There is severe global hypokinesis of LV | | contractility.8. There is septal flattening in diastole which is consistent with right | | ventricular volume overload.9. Pseudonormal LV diastolic filling pattern, consistent | | with elevated LA pressure and moderate dysfunction (Grade II).10. The right ventricle is | | moderately enlarged.11. The right ventricular systolic function is mildly impaired.12. | | The left atrial size is normal.13. The right atrium is moderately enlarged.14. The | | aortic valve is trileaflet.15. There is mild aortic regurgitation.16. There is no | | evidence of aortic stenosis.17. The mitral valve is normal.18. Izrl-nf-brmrxcqd | | eccentric mitral regurgitation is present.19. Severe tricuspid regurgitation present.20. | | The right ventricular systolic pressure (pulmonary artery systolic pressure), as | | measured by Doppler, is 30+15=45 mmHg. Non-coaptation of the TV leaflets.21. Mild | | pulmonic regurgitation.22. There is no pericardial effusion.23. Pleural effusion | | present.24. The IVC is dilated (>2.5cm) and does not collapse with sniff, consistent | | with central venous pressures of 15 mmHg.25. The aortic root, ascending aorta and aortic | | arch are normal.26. No mass [id number]. No clot visualizedFINDINGS--------ECG rhythm: | | Sinus rhythm.Study: A 2-dimensional transthoracic echocardiogram with m-mode, spectral | | and color flow Doppler was perfomed. Study: This was a technically adequate study.Left | | Ventricle: Overall left ventricular systolic function is severely impaired with, an EF | | between 20 - 25 %. Left Ventricle: The left ventricle cavity size is normal. Left | | Ventricle: There is mild concentric left ventricular hypertrophy. Left Ventricle: There | | is severe global hypokinesis of LV contractility. Left Ventricle: There is septal | | flattening in diastole which is consistent with right ventricular volume overload. Left | | Ventricle: Pseudonormal LV diastolic filling pattern, consistent with elevated LA | | pressure and moderate dysfunction (Grade II).Right Ventricle: The right ventricle is | | moderately enlarged. Right Ventricle: The right ventricular systolic function is mildly | | impaired.Left Atrium: The left atrial size is normal.Right Atrium: The right atrium is | | moderately enlarged.Aortic Valve: The aortic valve is trileaflet. Aortic Valve: There is | | mild aortic regurgitation. Aortic Valve: There is no evidence of aortic stenosis.Mitral | | Valve: The mitral valve is normal. Mitral Valve: Gqav-dk-pgarvzjq eccentric mitral | | regurgitation is present.Tricuspid Valve: Severe tricuspid regurgitation present. | | Tricuspid Valve: The right ventricular systolic pressure (pulmonary artery systolic | | pressure), as measured by Doppler, is 30+15=45 mmHg. Non-coaptation of the TV | | leaflets.Pulmonic Valve: Mild pulmonic regurgitation.Pericardium: There is no | | pericardial effusion. Pericardium: Pleural effusion present.IVC/Hepatic Veins: The IVC | | is dilated (>2.5cm) and does not collapse with sniff, consistent with central venous | | pressures of 15 mmHg.Aorta: The aortic root and ascending aorta are normal in size.Mass: | | No mass visualizedThrombus: No clot visualizedMEASUREMENTS RA Area: 28.23 | | cm2Ao asc: 2.62 cmAo sinus: 2.49 cmIVC: 2.62 cmEDV(Teich): 118.24 mlIVSd: | | 1.15 cmLVIDd: 4.99 cmLVPWd: 1.27 cmLVOT Diam: 1.91 cm%FS: 9.56 %EF(Teich): | | 20.92 %ESV(Teich): 93.49 mlIVSs: 1.28 cmLVIDs: 4.52 cmLVPWs: 1.50 cmSV(Teich): | | 24.74 mlRA Major: 6.10 cmRVIDd: 4.54 cmLVEF MOD A2C: 18.03 %SV MOD A2C: 26.28 | | mlLVEF MOD A4C: 22.87 %SV MOD A4C: 31.28 mlEF Biplane: 18.90 %LVEDV MOD BP: | | 142.56 mlLVESV MOD BP: 115.61 mlLVEDV MOD A2C: 145.73 mlLVLd A2C: 9.47 cmLVEDV MOD | | A4C: 136.75 mlLVLd A4C: 9.26 cmLVESV MOD A2C: 119.44 mlLVLs A2C: 9.18 cmLVESV | | MOD A4C: 105.47 mlLVLs A4C: 8.58 cmLAESV(A-L): 63.30 mlLAESV Index (A-L): 30.43 | | ml/m2LAAs A2C: 20.97 [id number] A-L A2C: 65.71 mlLALs A2C: 5.68 cmLAAs A4C: 19.94 | | [id number] A-L A4C: 60.20 mlLALs A4C: 5.60 cmTAPSE: 1.58 cmHR: 79.62 BPMAV maxPG: | | 6.06 mmHgAV meanP.71 mmHgAV Vmax: 1.23 m/Elizabeth Vmean: 0.92 m/Elizabeth VTI: 20.07 | | cmAVA Vmax: 1.74 cm2AVA (VTI): 1.93 ng1MZVG Vmax: 0.00 cm2/m2AVAI (VTI): 0.00 | | cm2/m2LVOT maxP.22 mmHgLVOT meanP.03 mmHgLVSI Dopp: 18.70 ml/m2LVSV Dopp: | | 38.91 mlLVOT Vmax: 0.74 m/sLVOT Vmean: 0.45 m/sLVOT VTI: 13.50 cmMV A Shahid: | | 0.54 m/sMV DecT: 117.65 msMV E Shahid: 0.80 m/sMV E/A Ratio: 1.46 Septal e': 0.03 | | m/sSeptal E/e': 26.26 Lateral e': 0.04 m/sLateral E/e': 16.81 RV S': 0.07 m/sTR | | maxP.08 mmHgTR Vmax: 2.74 m/sSonographer: MWAuthenticated by: Robel Yusuf | | MDReport Date/Time: 05-27-2018 13:59:57IMPRESSION:1. Sinus rhythm.2. A 2-dimensional | | transthoracic echocardiogram with m-mode, spectral and color flow Doppler was | | perfomed.3. This was a technically adequate study.4. Overall left ventricular systolic | | function is severely impaired with, an EF between 20 - 25 %.5. The left ventricle cavity | | size is normal.6. There is mild concentric left ventricular hypertrophy.7. There is | | severe global hypokinesis of LV contractility.8. There is septal flattening in diastole | | which is consistent with right ventricular volume overload.9. Pseudonormal LV diastolic | | filling pattern, consistent with elevated LA pressure and moderate dysfunction (Grade | | II).10. The right ventricle is moderately enlarged.11. The right ventricular systolic | | function is mildly impaired.12. The left atrial size is normal.13. The right atrium is | | moderately enlarged.14. The aortic valve is trileaflet.15. There is mild aortic | | regurgitation.16. There is no evidence of aortic stenosis.17. The mitral valve is | | normal.18. Qjje-vw-hgjwsxxg eccentric mitral regurgitation is present.19. Severe | | tricuspid regurgitation present.20. The right ventricular systolic pressure (pulmonary | | artery systolic pressure), as measured by Doppler, is 30+15=45 mmHg. Non-coaptation of | | the TV leaflets.21. Mild pulmonic regurgitation.22. There is no pericardial effusion.23. | | Pleural effusion present.24. The IVC is dilated (>2.5cm) and does not collapse with | | sniff, consistent with central venous pressures of 15 mmHg.25. The aortic root, | | ascending aorta and aortic arch are normal.26. No mass [id number]. No clot visualized | |LVIDd: 4.99 cm | |LVPWd: 1.27 cm | |LVOT Diam: 1.91 cm | |%FS: 9.56 % | |EF(Teich): 20.92 % | |ESV(Teich): 93.49 ml | |IVSs: 1.28 cm | |LVIDs: 4.52 cm | |LVPWs: 1.50 cm | |SV(Teich): 24.74 ml | |RA Major: 6.10 cm | |RVIDd: 4.54 cm | |LVEF MOD A2C: 18.03 % | |SV MOD A2C: 26.28 ml | |LVEF MOD A4C: 22.87 % | |SV MOD A4C: 31.28 ml | |EF Biplane: 18.90 % | |LVEDV MOD BP: 142.56 ml | |LVESV MOD BP: 115.61 ml | |LVEDV MOD A2C: 145.73 ml | |LVLd A2C: 9.47 cm | |LVEDV MOD A4C: 136.75 ml | |LVLd A4C: 9.26 cm | |LVESV MOD A2C: 119.44 ml | |LVLs A2C: 9.18 cm | |LVESV MOD A4C: 105.47 ml | |LVLs A4C: 8.58 cm | |LAESV(A-L): 63.30 ml | |LAESV Index (A-L): 30.43 ml/m2 | |LAAs A2C: 20.97 cm2 | |LAESV A-L A2C: 65.71 ml | |LALs A2C: 5.68 cm | |LAAs A4C: 19.94 cm2 | |LAESV A-L A4C: 60.20 ml | |LALs A4C: 5.60 cm | |TAPSE: 1.58 cm | |HR: 79.62 BPM | |AV maxP.06 mmHg | |AV meanP.71 mmHg | |AV Vmax: 1.23 m/s | |AV Vmean: 0.92 m/s | |AV VTI: 20.07 cm | |TIMA Vmax: 1.74 cm2 | |TIMA (VTI): 1.93 cm2 | |AVAI Vmax: 0.00 cm2/m2 | |AVAI (VTI): 0.00 cm2/m2 | |LVOT maxP.22 mmHg | |LVOT meanP.03 mmHg | |LVSI Dopp: 18.70 ml/m2 | |LVSV Dopp: 38.91 ml | |LVOT Vmax: 0.74 m/s | |LVOT Vmean: 0.45 m/s | |LVOT VTI: 13.50 cm | |MV A Shahid: 0.54 m/s | |MV DecT: 117.65 ms | |MV E Shahid: 0.80 m/s | |MV E/A Ratio: 1.46 | |Septal e': 0.03 m/s | |Septal E/e': 26.26 | |Lateral e': 0.04 m/s | |Lateral E/e': 16.81 | |RV S': 0.07 m/s | |TR maxP.08 mmHg | |TR Vmax: 2.74 m/s | | | |Amortization Schedule Clerk: MW | |Authenticated by: Robel Yusuf MD | |Report Date/Time: 05-27-2018 13:59:57 | | | |IMPRESSION: | |1. Sinus rhythm. | |2. A 2-dimensional transthoracic echocardiogram with m-mode, spectral and color flow Dopple r was perfomed. | |3. This was a technically adequate study. | |4. Overall left ventricular systolic function is severely impaired with, an EF between 20 - 25 %. | |5. The left ventricle cavity size is normal. | |6. There is mild concentric left ventricular hypertrophy. | |7. There is severe global hypokinesis of LV contractility. | |8. There is septal flattening in diastole which is consistent with right ventricular volume overload. | |9. Pseudonormal LV diastolic filling pattern, consistent with elevated LA pressure and mode rate dysfunction (Grade II). | |10. The right ventricle is moderately enlarged. | |11. The right ventricular systolic function is mildly impaired. | |12. The left atrial size is normal. | |13. The right atrium is moderately enlarged. | |14. The aortic valve is trileaflet. | |15. There is mild aortic regurgitation. | |16. There is no evidence of aortic stenosis. | |17. The mitral valve is normal. | |18. Zzmg-ug-npfoglpl eccentric mitral regurgitation is present. | |19. Severe tricuspid regurgitation present. | |20. The right ventricular systolic pressure (pulmonary artery systolic pressure), as measur ed by Doppler, is 30+15=45 mmHg. Non-coaptation of the TV leaflets. | |21. Mild pulmonic regurgitation. | |22. There is no pericardial effusion. | |23. Pleural effusion present. | |24. The IVC is dilated (>2.5cm) and does not collapse with sniff, consistent with central venous pressures of 15 mmHg. | |25. The aortic root, ascending aorta and aortic arch are normal. | |26. No mass visualized | |27. No clot visualized | + + + + + + + | Performing | Address | City/State/[facility] | Phone Number | | Organization | | | | + + + + + | [facility] | [address] | [place] [address] | | + + + + + XR chest 2 view (05/27/2018 11:02 AM)Only the most recent of 2 results within the time jorge l od is included. + + + | Impressions | Performed At | + + + | 1. Large right-sided pleural effusion is causing near complete | [facility] | | atelectasis of the entire right lung with only a small aerated portion | RADIOLOGY | | of right upper lobe remaining. 2. Small left-sided pleural effusion | | | at the posterior costophrenic angle. 3. Findings appear largely | | | unchanged from yesterday. Signed by: Rai Espinoza Date/Time: | | | 05/27/2018 11:20 AM | | + + + + + + | Narrative | Performed At | + + + | CHEST TWO VIEWS CLINICAL INFORMATION: Follow up pneumonia . | [facility] | | COMPARISON: CT CHEST WO CONTRAST (05/26/2018); XR CHEST 2 VIEW FRONTAL | RADIOLOGY | | AND LATERAL (05/26/2018); XR CHEST 1 VIEW (05/26/2018); FINDINGS: A | | | large right-sided pleural effusion is creating near complete | | | opacification of the entire right hemithorax with only a small amount | | | of residual aerated lung seen at the right upper lobe. A small | | | left-sided pleural effusion is seen at the posterior costophrenic | | | angle. The left lung is otherwise well aerated. The heart is | | | normal in size. The pulmonary vascular pattern is | | | normal. Overlying oxygen tubing is seen. The osseous structures | | | are intact. | | + + + + + | Procedure Note | + + | Sonido Steele Results In - 05/27/2018 11:23 AM PDT CHEST TWO VIEWS | | CLINICAL INFORMATION: | | Follow up pneumonia . | | COMPARISON: | | CT CHEST WO CONTRAST (05/26/2018); XR CHEST 2 VIEW FRONTAL AND LATERAL | | (05/26/2018); XR CHEST 1 VIEW (05/26/2018); | | FINDINGS: | | A large right-sided pleural effusion is creating near complete | | opacification of the entire right hemithorax with only a small amount | | of residual aerated lung seen at the right upper lobe. A small | | left-sided pleural effusion is seen at the posterior costophrenic | | angle. The left lung is otherwise well aerated. The heart is normal | | in size. The pulmonary vascular pattern is normal. Overlying oxygen | | tubing is seen. The osseous structures are intact. | | IMPRESSION: | | 1. Large right-sided pleural effusion is causing near complete | | atelectasis of the entire right lung with only a small aerated portion | | of right upper lobe remaining. | | 2. Small left-sided pleural effusion at the posterior costophrenic | | angle. | | 3. Findings appear largely unchanged from yesterday. | | Signed by: Rai Espinoza | | Sign Date/Time: 05/27/2018 11:20 AM | + + + + + + + | Performing | Address | City/State/Zipcode | Phone Number | | Organization | | | | + + + + + | [facility] | [address] | [place] [address] | | + + + + + Phosphorus (05/27/2018 4:25 AM) + + + + + | Component | Value | Ref Range | Performed At | + + + + + | PHOSPHORUS | 8.0 (H)Comment: Testing | 2.3 - 4.8 mg/dL | [facility] | | | performed at [facility], [address] | | LABORATORY | | | [address], | | | | | [place] [address] | | | + + + + + + + | Specimen | + + | Blood | + + + + + + + | Performing | Address | City/State/Zipcode | Phone Number | | Organization | | | | + + + + + | [facility] | [address] | [place] [address] | [phone] | | LABORATORY | [address]. | | | + + + + + Brain natriuretic peptide (05/27/2018 4:25 AM)Only the most recent of 2 results within the time period is included. + + + + + | Component | Value | Ref Range | Performed At | + + + + + | BRAIN NATRIURETIC | 1,153.92 (H)Comment: | 0 - 100 pg/mL | [facility] | | PEPTIDE | Testing performed at | | | | | [facility];[address] | | | | | [place] [address] | | | + + + + + + + | Specimen | + + | Blood | + + + + + + + | Performing | Address | City/State/Zipcode | Phone Number | | Organization | | | | + + + + + | [facility] | [address] | [place] [address] | | + + + + + Magnesium (05/27/2018 4:25 AM) + + + + + | Component | Value | Ref Range | Performed At | + + + + + | MAGNESIUM | 2.7 (H)Comment: Testing | 1.7 - 2.4 mg/dL | [facility] | | | performed at [facility], [address] | | LABORATORY | | | [facility], | | | | | [place] [address] | | | + + + + + + + | Specimen | + + | Blood | + + + + + + + | Performing | Address | City/State/Zipcode | Phone Number | | Organization | | | | + + + + + | [facility] | [address] | [place] [address] | [phone] | | LABORATORY | [address] | | | + + + + + Basic Metabolic Panel (05/27/2018 4:25 AM) + + + + + | Component | Value | Ref Range | Performed At | + + + + + | SODIUM | 135 | 135 - 145 mmol/L | [facility] | | | | | LABORATORY | + + + + + | POTASSIUM | 5.9 (H) | 3.5 - 4.9 mmol/L | [facility] | | | | | LABORATORY | + + + + + | CHLORIDE | 96 (L) | 99 - 109 mmol/L | [facility] | | | | | LABORATORY | + + + + + | CO2 | 25 | 23 - 32 mmol/L | [facility] | | | | | LABORATORY | + + + + + | ANION GAP AGAP | 20 | 5 - 20 mmol/L | [facility] | | | | | LABORATORY | + + + + + | GLUCOSE | 74 | 65 - 99 mg/dL | [facility] | | | | | LABORATORY | + + + + + | BUN | 51 (H) | 8 - 25 mg/dL | [facility] | | | | | LABORATORY | + + + + + | CREATININE | 9.2 (H) | 0.50 - 1.00 mg/dL | [facility] | | | | | LABORATORY | + + + + + | BUN/CREAT | 6 | | [facility] | | | | | LABORATORY | + + + + + | CALCIUM | 9.4 | 8.5 - 10.5 mg/dL | [facility] | | | | | LABORATORY | + + + + + | EGFR | 5 (L)Comment: GFR <60: | >60 mL/min/1.73m2 | [facility] | | | CHRONIC KIDNEY DISEASE, | [...] the | | | | | MDRD IDWV traceable | | | | | equation.Testing | | | | | performed at [facility], [facility] [address] | | | | | [facility], | | | | | [place] [address] | | | + + + + + + + | Specimen | + + | Blood | + + + + + + + | Performing | Address | City/State/Zipcode | Phone Number | | Organization | | | | + + + + + | [facility] | [address] | [place] [address] | [phone] | | LABORATORY | [address] | | | + + + + + Respiratory Filmarray (05/26/2018 6:06 PM) + + + + + | Component | Value | Ref Range | Performed At | + + + + + | ADENOVIRUS | Not Detected | Not Detected | [facility] | | | | | LABORATORY | + + + + + | CORONAVIRUS 229E | Not Detected | Not Detected | [facility] | | | | | LABORATORY | + + + + + | CORONAVIRUS HKU1 | Not Detected | Not Detected | [facility] | | | | | LABORATORY | + + + + + | CORONAVIRUS NL63 | Not Detected | Not Detected | [facility] | | | | | LABORATORY | + + + + + | CORONAVIRUS OC43 | Not Detected | Not Detected | [facility] | | | | | LABORATORY | + + + + + | HUMAN | Not Detected | Not Detected | [facility] | | METAPNEUMOVIRUS | | | LABORATORY | + + + + + | HUMAN RHINO/ENTERO | Not Detected | Not Detected | [facility] | | | | | LABORATORY | + + + + + | INFLUENZA A | Not Detected | Not Detected | [facility] | | | | | LABORATORY | + + + + + | INFLUENZA B | Not Detected | Not Detected | [facility] | | | | | LABORATORY | + + + + + | PARAINFLUENZA 1 | Not Detected | Not Detected | [facility] | | | | | LABORATORY | + + + + + | PARAINFLUENZA 2 | Not Detected | Not Detected | [facility] | | | | | LABORATORY | + + + + + | PARAINFLUENZA 3 | Not Detected | Not Detected | [facility] | | | | | LABORATORY | + + + + + | PARAINFLUENZA 4 | Not Detected | Not Detected | [facility] | | | | | LABORATORY | + + + + + | RESP SYNCYTIAL VIRUS | DETECTED (A) | Not Detected | [facility] | | | | | LABORATORY | + + + + + | BORDETELLA PERTUSSIS | Not Detected | Not Detected | [facility] | | | | | LABORATORY | + + + + + | CHLAMYDIAE | Not Detected | Not Detected | [facility] | | PNEUMONIAE | | | LABORATORY | + + + + + | MYCOPLASMA | Not Detected | Not Detected | [facility] | | PNEUMONIAE | | | LABORATORY | + + + + + | RESP PANEL INTERP | Testing performed by | | [facility] | | | Molecular | | LABORATORY | | | MethodologyComment: | | | | | Testing performed at | | | | | [facility], [address] [place] [address] | | | | | [address], [place], [place] | | | | | [address] | | | + + + + + + + | Specimen | + + | Nasopharynx/Orophary | | nx | + + + + + + + | Performing | Address | City/State/Zipcode | Phone Number | | Organization | | | | + + + + + | [facility] | [address] | [place] [address] | [phone] | | LABORATORY | [address] | | | + + + + + MRSA by PCR (05/26/2018 6:06 PM) + + + + + | Component | Value | Ref Range | Performed At | + + + + + | SOURCE | NARES(NOSE) | | [facility] | + + + + + | MRSA PCR | NEGATIVEComment: Testing | NEGATIVE | [facility] | | | performed at [facility];[address] | | | | [address];[place] | | | | | [address] | | | + + + + + + + | Specimen | + + | Nasopharyngeal - | | Nares(Nose) | + + + + + + + | Performing | Address | City/State/Zipcode | Phone Number | | Organization | | | | + + + + + | [facility] | [address] | [place] [address] | | + + + + + PROCALCITONIN (05/26/2018 5:27 PM)Only the most recent of 2 results within the time period is included. + + + + + | Component | Value | Ref Range | Performed At | + + + + + | PROCALCITONIN | 0.76 (H)Comment: | <0.5 ng/mL | [facility] | | | INTERPRETIVE | | | | | INFORMATION: PROCALCI | | | | | TONIN PCT <= 0.5 | | | | | ng/mL: Low risk | | | | | for progression to | | | | | severe | | | | | systemic bacteria | | | | | l infection (severe | | | | | sepsis/septic | | | | | shock). Does not | | | | | exclude an infection, | | | | | because | | | | | localized infecti | | | | | ons may be associated | | | | | with such low | | | | | levels. If PCT is | | | | | measured very early | | | | | after | | | | | bacterial challen | | | | | ge (usually <6 hours), | | | | | results may still | | | | | be low and should | | | | | re-assess PCT 6-24 | | | | | hours later. PCT >0.5 | | | | | and <= 2 | | | | | ng/mL: Moderate | | | | | risk for progression to | | | | | severe | | | | | systemic infectio | | | | | n (severe sepsis/septic | | | | | shock). Other | | | | | conditions are known to | | | | | elevate PCT, patient | | | | | should be | | | | | closely monitored both | | | | | clinically and | | | | | by re-assessing | | | | | PCT within 6-24 hours. | | | | | PCT > 2 | | | | | ng/mL: High | | | | | likelihood for | | | | | progression to severe | | | | | systemic bacteria | | | | | l infection (severe | | | | | sepsis/septic shock). | | | | | PCT >= 10 | | | | | ng/mL: High | | | | | likelihood of severe | | | | | sepsis or septic | | | | | shock.Testing performed | | | | | at [facility];[address] [place] [address] | | | | | [facility];[place] [address] | | | + + + + + + + + + + | Performing | Address | City/State/Zipcode | Phone Number | | Organization | | | | + + + + + | [facility] | [address] | [facility] [address] | | + + + + + CT Chest Non-Con (05/26/2018 4:41 PM) + + + | Impressions | Performed At | + + + | 1. Large right and small left pleural effusions. This results in | [facility] | | near complete collapse of the right lower and right middle lobes and | RADIOLOGY | | partial collapse of the right upper lobe. 2. Mosaic pattern of | | | lucencies in the left lung, which may represent air trapping or | | | emphysema. Signed by: MD Debbie, El Sign Date/Time: 05/26/2018 4:55 | | | PM | | + + + + + + | Narrative | Performed At | + + + | CT CHEST WITHOUT CONTRAST CLINICAL INFORMATION: Pneumonia. | [facility] | | COMPARISON: XR CHEST 2 VIEW FRONTAL AND LATERAL (05/26/2018); XR CHEST | RADIOLOGY | | 2 Views (05/25/2018); PROCEDURE: Axial images through the chest. | | | Multiplanar reconstructions. At least one of the following CT dose | | | optimization techniques were used: Automated exposure control; | | | Adjustment of mA and/or kV according to patient size; Use of | | | iterative reconstruction technique. FINDINGS: Lungs, Pleura and | | | Airways: Large right and small left pleural effusion. Near complete | | | collapse of the right lower lobe and right middle lobe and partial | | | collapse of the right upper lobe. Mosaic pattern of lucency in the | | | lungs. Mediastinum: No significant pericardial, great vessel or | | | esophageal abnormality. No mediastinal mass. Lymph Nodes: No | | | adenopathy. Upper Abdomen: No significant abnormality in the | | | visualized upper abdomen. BODY WALL Soft Tissues: The soft tissues | | | of the chest wall are unremarkable. Bones: No acute fracture or | | | vertebral end plate destruction. No lytic or blastic lesion. | | + + + + + | Procedure Note | + + | Cedric, Rad Results In - 05/26/2018 4:[address] CHEST WITHOUT CONTRAST | | CLINICAL INFORMATION: | | Pneumonia. | | COMPARISON: | | XR CHEST 2 VIEW FRONTAL AND LATERAL (05/26/2018); XR CHEST 2 Views | | (05/25/2018); | | PROCEDURE: | | Axial images through the chest. Multiplanar reconstructions. | | At least one of the following CT dose optimization techniques were | | used: Automated exposure control; Adjustment of mA and/or kV according | | to patient size; Use of iterative reconstruction technique. | | FINDINGS: | | Lungs, Pleura and Airways: Large right and small left pleural effusion. | | Near complete collapse of the right lower lobe and right middle lobe | | and partial collapse of the right upper lobe. Mosaic pattern of | | lucency in the lungs. | | Mediastinum: No significant pericardial, great vessel or esophageal | | abnormality. No mediastinal mass. | | Lymph Nodes: No adenopathy. | | Upper Abdomen: No significant abnormality in the visualized upper | | abdomen. | | BODY WALL | | Soft Tissues: The soft tissues of the chest wall are unremarkable. | | Bones: No acute fracture or vertebral end plate destruction. No lytic | | or blastic lesion. | | IMPRESSION: | | 1. Large right and small left pleural effusions. This results in near | | complete collapse of the right lower and right middle lobes and partial | | collapse of the right upper lobe. | | 2. Mosaic pattern of lucencies in the left lung, which may represent | | air trapping or emphysema. | | Signed by: MD Lewis John | | Sign Date/Time: 05/26/2018 4:55 PM | + + + + + + + | Performing | Address | City/State/Zipcode | Phone Number | | Organization | | | | + + + + + | [facility] | [address] | [place] [address] | | + + + + + Culture, Body Fluid (05/26/2018 3:13 PM)Only the most recent of 2 results within the time period is included. + + + + + | Component | Value | Ref Range | Performed At | + + + + + | Specimen Description | ASCITES FLUID | | [facility] | | | | | LABORATORY | + + + + + | GRAM STAIN | STAIN PERFORMED ON | | [facility] | | | CYTOSPIN | | | + + + + + | GRAM STAIN | WBC'S SEEN | | [facility] | + + + + + | GRAM STAIN | NO EPITHELIAL CELLS SEEN | | [facility] | + + + + + | GRAM STAIN | NO ORGANISMS SEEN | | [facility] | + + + + + | CULTURE | NO GROWTH 4 DAYS | | [facility] | | | | | LABORATORY | + + + + + + + | Specimen | + + | Other - Ascites | | Fluid | + + + + + + + | Performing | Address | City/State/Zipcode | Phone Number | | Organization | | | | + + + + + | [facility] | [address] | [place] [address] | [phone] | | LABORATORY | [address]. | | | + + + + + | [facility] | [address] | [place] [address] | | + + + + + Pathologist consult (05/26/2018 2:12 PM) + + + + + | Component | Value | Ref Range | Performed At | + + + + + | Pathologist Consult | Comment: Review of | | [facility] | | | pleural fluid collected | | | | | 05/26/2018. I agree | | | | | with the cell | | | | | counts. No acute | | | | | inflammation is | | | | | present. There is no | | | | | evidence of | | | | | malignancy. The | | | | | history of ESRD and SOB | | | | | are noted. Dr. Sanchez | | | | | Marsha 05/28/2018 | | | | | BES:rrcTesting performed | | | | | at [facility];[address] | | | | | [place] [address] | | | + + + + + + + + + + | Performing | Address | City/State/Zipcode | Phone Number | | Organization | | | | + + + + + | [facility] | [address] | [place] [address] | | + + + + + Cell count, Body Fluid (05/26/2018 2:12 PM) + + + + + | Component | Value | Ref Range | Performed At | + + + + + | FLUID TYPE | PLEURAL FLUID | | [facility] | + + + + + | COLOR | SAMMIE | | [facility] | + + + + + | APPEARANCE | CLOUDY | | [facility] | + + + + + | RBC'S | 3,000Comment: CORRECTED | /mm3 | [facility] | | | RESULTS CALLED TO | | | | | ELSA IN ED AT 1705 | | | | | BY LGJCORRECTED ON 05/26 | | | | | AT 1702: PREVIOUSLY | | | | | REPORTED <[id number] | | | + + + + + | TOTAL NUCLEATED | 253Comment: CORRECTED | /mm3 | [facility] | | CELLS | RESULTS CALLED TO | | | | | ELSA IN ED AT 1705 | | | | | BY LGJCORRECTED ON 05/26 | | | | | AT 1702: PREVIOUSLY | | | | | REPORTED 374 | | | + + + + + | NEUTROPHILS | 22 | % | [facility] | + + + + + | LYMPHOCYTES | 8 | % | [facility] | + + + + + | MONOCYTES/MACROPHAGE | 65 | % | [facility] | | S | | | | + + + + + | Mesothelial Cells | 5 | % | [facility] | + + + + + | CELLS COUNTED | 100Comment: Testing | | [facility] | | | performed at [facility] | | | | | [address];[place] | | | | | [address] | | | + + + + + + + | Specimen | + + | Body Fluid - Lung, | | Right Lower Lobe | + + + + + + + | Performing | Address | City/State/Zipcode | Phone Number | | Organization | | | | + + + + + | [facility] | [address] | [place] [address] | | + + + + + Total Protein, Body Fluid (05/26/2018 2:12 PM) + + + + + | Component | Value | Ref Range | Performed At | + + + + + | FLUID TOTAL PROTEIN | 4.2Comment: This is not | g/dL | [facility] | | | a linux systems analyst validated | | LABORATORY | | | sample type for this | | | | | method. No reference | | | | | ranges have been | | | | | established.Testing | | | | | performed at [facility], [address] | | | | | [facility], | | | | | [place] [address] | | | + + + + + | FLUID TP SOURCE | PLEURAL FLUIDComment: | | [facility] | | | Testing performed at | | | | | [facility];[address] | | | | [address];[place] [address] | | | + + + + + + + | Specimen | + + | Body Fluid - Lung, | | Right Lower Lobe | + + + + + + + | Performing | Address | City/State/Zipcode | Phone Number | | Organization | | | | + + + + + | [facility] | [address] | [place] [address] | | + + + + + | [facility] | [address] [place] [address] | [place] [address] | [phone] | | LABORATORY | [address] | | | + + + + + Albumin, Body Fluid (05/26/2018 2:12 PM) + + + + + | Component | Value | Ref Range | Performed At | + + + + + | FLUID ALBUMIN | 2.3Comment: This is not | g/dL | [facility] | | | a linux systems analyst validated | | LABORATORY | | | sample type for this | | | | | method. No reference | | | | | ranges have been | | | | | established.Testing | | | | | performed at [facility], [address] | | | | | [facility], | | | | | [place] [address] | | | + + + + + + + | Specimen | + + | Body Fluid - Lung, | | Right Lower Lobe | + + + + + + + | Performing | Address | City/State/Zipcode | Phone Number | | Organization | | | | + + + + + | [facility] | [address] | [place] [address] | [phone] | | LABORATORY | [address] | | | + + + + + pH, Body Fluid (05/26/2018 2:12 PM) + + + + + | Component | Value | Ref Range | Performed At | + + + + + | FLUID PH | 7.45Comment: Testing | | [facility] | | | performed at [facility];[address] | | | [address];[place] | | | | | [address] | | | + + + + + + + | Specimen | + + | Body Fluid - Lung, | | Right Lower Lobe | + + + + + + + | Performing | Address | City/State/Zipcode | Phone Number | | Organization | | | | + + + + + | [facility] | [address] | [place] [address] | | + + + + + Cardiac Panel (05/26/2018 12:14 PM) + + + + + | Component | Value | Ref Range | Performed At | + + + + + | WBC | 5.73 | 3.80 - 11.00 K/uL | [facility] | + + + + + | RBC | 3.32 (L) | 3.70 - 5.10 M/uL | [facility] | + + + + + | HGB | 12.1 | 11.3 - 15.5 g/dL | [facility] | + + + + + | HCT | 36.1 | 34.0 - 46.0 % | [facility] | + + + + + | MCV | 108.7 (H) | 80.0 - 100.0 fl | [facility] | + + + + + | MCH | 36.3 (H) | 27.0 - 34.0 pg | [facility] | + + + + + | MCHC | 33.4 | 32.0 - 35.5 g/dL | [facility] | + + + + + | RDW SD | 59.9 (H) | 37 - 53 fl | [facility] | + + + + + | PLT | 151 | 150 - 400 K/uL | [facility] | + + + + + | MPV | 10.1 | fl | [facility] | + + + + + | DIFF TYPE | AUTOMATED | | [facility] | + + + + + | NEUTROPHILS | 72.41 | % | [facility] | + + + + + | LYMPHOCYTES | 19.04 | % | [facility] | + + + + + | MONOCYTES | 6.42 | % | [facility] | + + + + + | EOSINOPHILS | 1.13 | % | [facility] | + + + + + | BASOPHILS | 1.00 | % | [facility] | + + + + + | NEUTROPHILS ABS | 4.15 | 1.90 - 7.40 K/uL | [facility] | + + + + + | LYMPHOCYTES ABS | 1.09 | 1.00 - 3.90 K/uL | [facility] | + + + + + | MONOCYTES ABS | 0.37 | 0.00 - 0.80 K/uL | [facility] | + + + + + | EOSINOPHILS ABS | 0.06 | 0.00 - 0.50 K/uL | [facility] | + + + + + | BASOPHILS ABS | 0.06 | 0.00 - 0.10 K/uL | [facility] | + + + + + | MORPHOLOGY | 2+Comment: MACRO | | [facility] | + + + + + | Platelet Estimate | ADEQUATE | | [facility] | + + + + + | SODIUM | 140 | 135 - 145 mmol/L | [facility] | + + + + + | POTASSIUM | 4.6 | 3.5 - 4.9 mmol/L | [facility] | + + + + + | CHLORIDE | 99 | 99 - 109 mmol/L | [facility] | + + + + + | CO2 | 27 | 23 - 32 mmol/L | [facility] | + + + + + | ANION GAP AGAP | 19 | 5 - 20 mmol/L | [facility] | + + + + + | GLUCOSE | 85 | 65 - 99 mg/dL | [facility] | + + + + + | BUN | 41 (H) | 8 - 25 mg/dL | [facility] | + + + + + | CREATININE | 7.89 (H) | 0.50 - 1.00 mg/dL | [facility] | + + + + + | BUN/CREAT | 5 | | [facility] | + + + + + | CALCIUM | 9.6 | 8.5 - 10.5 mg/dL | [facility] | + + + + + | TOTAL PROTEIN | 7.2 | 6.3 - 8.2 g/dL | [facility] | + + + + + | Albumin | 4.3 | 3.6 - 5.0 g/dL | [facility] | + + + + + | GLOBULIN | 2.9 | 1.3 - 4.9 g/dL | [facility] | + + + + + | A/G | 1.5 | 1.0 - 2.4 | [facility] | + + + + + | TBIL | 1.1 | 0.1 - 1.5 mg/dL | [facility] | + + + + + | ALK PHOS | 120 (H) | 35 - 115 U/L | [facility] | + + + + + | AST | 82 (H) | 10 - 45 U/L | [facility] | + + + + + | ALT | 64 | 10 - 65 U/L | [facility] | + + + + + | EGFR | 6 (L)Comment: GFR <60: | >60 mL/min/1.73m2 | [facility] | | | CHRONIC KIDNEY DISEASE, [...] + + + + | CPK | 291 (H) | 30 - 240 U/L | [facility] | + + + + + | INR | 1.6Comment: REFERENCE | | [facility] | | | RANGE:0.9 - | [...] + + + + | APTT | 29 | 23 - 32 seconds | [facility] | + + + + + | MMB | 7.8 (H) | 0.5 - 3.6 ng/mL | [facility] | + + + + + | CK-MB Index | 2.7Comment: CK INDEX | | [facility] | | | INTERPRETATION: | | | | | MMB | | | | | ng/mL & Relative | | | | | IndexNon-AMI | | | | | < or = | | | | | 5.0 N | | | | | AGray Zone | | | | | >5.0 < | | | | | or = | | | | | 4.0AMI | | | | | | | | | | >5.0 | | | | | >4.0Testing | | | | | performed at [facility] | | | | | [address]ica [address]pe[address];[place], [place] | | | | | [address] | | | + + + + + + + + + + | Performing | Address | City/State/Zipcode | Phone Number | | Organization | | | | + + + + + | [facility] | [address] | [place] [address] | | + + + + + Thoracentesis (05/26/2018 12:01 PM) + + + | Narrative | Performed At | + + + | Aneudy Hunter MD 05/26/2018 4:23 PM Thoracentesis | | | Date/Time: 05/26/2018 1:24 PM Performed by: ANEUDY HUNTER | | | Authorized by: ANEUDY HUNTER Consent: Consent | | | obtained: Written and verbal Consent given by: Patient | | | Risks discussed: Bleeding, infection, pain and pneumothorax | | | Alternatives discussed: Delayed treatment and no treatment | | | Anesthesia: Anesthesia method: Local infiltration Local | | | anesthetic: Bupivacaine 0.5% WITH epi Procedure details: | | | Preparation: Patient was prepped and draped in usual sterile | | | fashion Patient position: Sitting Location: R | | | midscapular line Intercostal space: 4th Puncture | | | method: Pcxi-ekd-hagrzn catheter Ultrasound guidance: yes | | | Catheter size: 8 Fr Number of attempts: 1 | | | Drainage characteristics: Clear Post-procedure details: | | | Chest x-ray performed: yes Chest x-ray | | | findings: Pleural effusion unchanged Patient tolerance of | | | procedure: Tolerated well, no immediate complications | | + + + Paracentesis (05/26/2018 12:01 PM) + + + | Narrative | Performed At | + + + | Aneudy Hunter MD 05/26/2018 4:23 PM Paracentesis | | | Date/Time: 05/26/2018 1:23 PM Performed by: ANEUDY HUNTER | | | Authorized by: ANEUDY HUNTER Consent: Consent | | | obtained: Verbal and written Consent given by: Patient | | | Risks discussed: Bleeding, bowel perforation, infection and | | | pain [place] protocol: Imaging studies available: yes | | | Patient identity confirmed: Verbally with patient | | | Pre-procedure details: Procedure purpose: Diagnostic | | | Preparation: Patient was prepped and draped in usual sterile | | | fashion Anesthesia: Anesthesia method: Local | | | infiltration Local anesthetic: Bupivacaine 0.5% WITH epi | | | Procedure details: Needle gauge: 18 Ultrasound guidance: | | | yes Puncture site: Midline infraumbilical Fluid | | | removed amount: 4 liters Fluid appearance: Yellow | | | Dressing: Adhesive bandage (Dermabond) Post-procedure details: | | | Patient tolerance of procedure: Tolerated well, no immediate | | | complications | | + + + ED INFORMATION EXCHANGE (05/26/2018 11:59 AM) + + + | Narrative | Performed At | + + + | [id number] Criteria Met 2 in 2 | ED | | Security and Safety No recent Security Events currently on file | INFORMATION | | ED Care Guidelines There are currently no ED Care Guidelines for this | EXCHANGE | | patient. Please check your facility's medical records system. | | | Prescription Drug Report (12 Mo.) PDMP query found no report. | | | E.D. Visit Count (12 mo.) Facility Visits Low Acuity [facility] | | | [facility] 1 0 [facility] 5 0 Total 6 0 | | | Note: Visits indicate total known visits. Medicaid Low Acuity Dx | | | are the number of primary diagnoses on the Medicaid's Low Acuity dx | | | list. Recent Emergency Department Visit Summary Date Facility | | | City State Type Diagnoses or Chief Complaint May 26, 2018 [facility] | | | [facility] Emergency Chest pain, unspecified | | | [facility] [place] [facility] | | | Complaint: FLU SYMPTOMS [facility] [place] | | | Emergency Chief Complaint: SOB/COUGH May 10, 2018 [facility]. | | | [place] [facility] [place] 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 [place] [facility] | | | Functional dyspepsia Other ascites Epigastric pain | | | Allergy status to narcotic agent status Radiographic dye | | | allergy status Nicotine dependence, unspecified, uncomplicated | | | Other medical terminologist (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 Sep 16, 2017 [facility] | | | [place] [place] Emergency Chronic kidney disease, | | | unspecified Dependence on renal dialysis Pain, | | | unspecified Allergy status to narcotic agent status | | | Nicotine dependence, unspecified, uncomplicated Other care home | | | (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 Elevated blood-pressure reading, | | | without diagnosis of hypertension Patient's noncompliance with | | | renal dialysis Hypertensive chronic kidney disease with stage 1 | | | through stage 4 chronic kidney disease, or unspecified chronic kidney | | | disease Radiographic dye allergy status Recent | | | Inpatient Visit Summary No recorded inpatient visits. Care | | | Providers There are no care providers on record at this time. | | | Collective Portal This patient has registered at the [facility] | | | [facility] Emergency Department For more information visit: | | | [id number] | | | [email or web address] [facility] PLEASE NOTE: 1. Any care recommendations and | | | other clinical information are provided as guidelines or for | | | historical purposes only, and providers should exercise their own | | | clinical judgment when providing [...] | | completeness of information provided. 2019 [employer] | | | [employer] - [email or web address] | | + + + + + | Procedure Note | + + | Interface, Lab - 05/26/2018 12:00 PM PDT Formatting of this note may be different | | from the original.[id number] Met 2 in 2Security and | | SafetyNo recent Security Events currently on fileED Care GuidelinesThere are currently | | no ED Care Guidelines for this patient. Please check your facility's medical records | | system.Prescription Drug Report (12 Mo.)PDMP query found no report.E.D. Visit Count (12 | | mo.)Facility Visits Low Acuity [facility] [address] [facility] [place] | | Hospital 5 0 Total 6 0 Note: Visits indicate total known visits. Medicaid Low Acuity Dx | | are the number of primary diagnoses on the Medicaid's Low Acuity dx list. Recent | | Emergency Department Visit SummaryDate Facility City State Type Diagnoses or Chief | | [facility] [place] [facility] Chest pain, | | unspecified May 26, 2018 [facility] [place] [facility] [place] [place] Emergency Chief Complaint: FLU | | SYMPTOMS May 25, 2018 [facility] [place] [facility] Emergency Chief Complaint: | | SOB/COUGH May 10, 2018 [facility] [place] [facility] Emergency Epistaxis Other long | | term (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 End stage renal disease Allergy status to narcotic | | agent status Dependence on renal dialysis Allergy status to other drugs, | | medicaments and biological substances status Radiographic dye allergy status | | Hypertensive heart and chronic kidney disease without heart failure, with stage 5 | | chronic kidney disease, or end stage renal disease Feb 14, 2018 [facility] [place] [facility] | | [place] Emergency Functional dyspepsia Other ascites Epigastric pain | | Allergy status to narcotic agent status Radiographic dye allergy status Nicotine | | dependence, unspecified, uncomplicated Other care home (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 [facility] | | 2017 [facility] [place] [facility] [place] [place] Emergency Chronic kidney disease, unspecified | | Dependence on renal dialysis Pain, unspecified Allergy status to narcotic agent | | status Nicotine dependence, unspecified, uncomplicated Other care home (current) | | 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 Elevated blood-pressure reading, without diagnosis of hypertension | | Patient's noncompliance with renal dialysis Hypertensive chronic kidney disease with | | stage 1 through stage 4 chronic kidney disease, or unspecified chronic kidney disease | | Radiographic dye allergy status Recent Inpatient Visit SummaryNo recorded inpatient | | visits. Care ProvidersThere are no care providers on record at this time. Collective | | LalaThis patient has registered at the [facility] Emergency | | Department For more information visit: | | [id number] andnbsp | | PLEASE NOTE: 1. Any care recommendations and other clinical information are provided | | as guidelines or for historical purposes only, [...] or completeness of information | | provided.2019 [employer]. - [employer]INEPASS | | Hypertensive heart and chronic kidney disease without heart failure, with stage 5 chroni c kidney disease, or end stage renal disease | | | |Feb 14, 2018 [facility] [place] [place] Emergency | | Functional dyspepsia | | Other ascites | | Epigastric pain | | Allergy status to narcotic agent status | | Radiographic dye allergy status | | Nicotine dependence, unspecified, uncomplicated | | Other care home (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 | | | |Sep 16, 2017 [facility] [place] [place] Emergency | | Chronic kidney disease, unspecified | | Dependence on renal dialysis | | Pain, unspecified | | Allergy status to narcotic agent status | | Nicotine dependence, unspecified, uncomplicated | | Other care home (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 | | Elevated blood-pressure reading, without diagnosis of hypertension | | Patient's noncompliance with renal dialysis | | Hypertensive chronic kidney disease with stage 1 through stage 4 chronic kidney disease, or unspecified chronic kidney disease | | Radiographic dye allergy status | | | | | | | |Recent Inpatient Visit Summary | |No recorded inpatient visits. | | | |Care Providers | |There are no care providers on record at this time. | |i[employer] Portal | |This patient has registered at the [facility] Emergency Department | |For more information visit: [email or web address] [id number] | |andnbsp PLEASE NOTE: | | 1. Any care recommendations [...] of information provided. | | | |2019 [employer]. - [email or web address] | + + + +---------+ + + | Performing | Address | City/State/Zipcode | Phone Number | | Organization | | | | + +---------+ + + | ED INFORMATION | | | | | EXCHANGE | | | | + +---------+ + + from Last 3 Months Insurance + +--------+ +------+-------+ + | Payer | Benefi | Subscriber | Type | Phone | Address | | | t Plan | ID | | | | | | / | | | | | | | Group | | | | | + +--------+ +------+-------+ + | MEDICARE | MEDICA | [id number] | | | [address] | | | RE | | | | [place] [phone] | | | IP-OP | | | | | + +--------+ +------+-------+ + | MEDICAID | MEDICA | [id number] | | | [address] | | | ID | | | | [place] | | | [place] | | | | [phone] | + +--------+ +------+-------+ + + +--------+ +--------+ + + | Guarantor Name | Accoun | Relation to | Date | Phone | Billing Address | | | t Type | Patient | of | | | | | | | | | | + +--------+ +--------+ + + | DARA LOUISE | Person | Self [birth year] Home: | [facility] [address] | | | al/Kvng | | 1994 | [phone] | [place] | | | [place] | | [phone] | + +--------+ +--------+ + +
--- OUTSIDE RECORDS SUMMARY | ~2018-06-04 | XMS | Encounter Summary ---
Demographics + + + | Address | [address] | | | [place] [address] | + + + | Home Phone [...] + + + | Author | [employer] | + + + | Organization | [facility] [employer] | + + + | Address [...] | | | | | [place] [address] | | + + + + + | Wilson De Guzman | ECON | Unknown | | + + + + + Care Team Providers + +------+ + | Care Make Up Operator Name | Role | Phone | + +------+ + | Tien Nicholson MD | PCP | | + +------+ + Reason for Visit + + + | Reason | Comments | + + + | Shortness of Breath | | + + + | Referral | Transfer from [facility] | + + + Auth/Cert +--------+--------+ + + + + | Status | Reason | Specialty | Diagnoses / | Referred By | Referred To | | | | | Procedures | Contact | Contact | +--------+--------+ + + + + | | | Internal | Diagnoses | | [facility] 4th | | | | Medicine | Acute | | [address] | | | | | respiratory | | [address] | | | | | distress | | [address] | | | | | Other | | [place], [place] | | | | | ascites | | [address] Phone: | | | | | Pleural | | [phone] | | | | | effusion on | | Fax: | | | | | right Chest | | [phone] | | | | | pain, | | | | | | | unspecified | | | | | | | type | | | +--------+--------+ + + + + Encounter Details +--------+ + + + + | Date | Type | Department | Care Team | Description | +--------+ + + + + | 05/26/ | Hospital | [facility] | Aneudy Hunter, | Pleural effusion on | | 2019 - | Encounter | [facility] 4th | [address] | right (Primary Dx); | | | | [facility] | [place] [address] | Chest pain, | | 06/01/ | | [address] | [phone] [place], | unspecified type; | | 2019 | | [place] [address] | MD Mayco [address] | Other ascites; Acute | | | | [phone] | [address] | respiratory | | | | | [place] [address] | distress; End-stage | | | | | [phone] | renal disease on | | | | | | hemodialysis ([facility]); | | | | | Anthony Belcher MD | Hyperkalemia; | | | | | [address] | Hyperphosphatemia; | | | | | [place] [address] | At high risk for | | | | | [phone] | electrolyte | | | | | | imbalance; Acute | | | | | Darell Kowalski MD | systolic CHF | | | | | [address] | (congestive heart | | | | | [place] [address] | failure) ([facility]); | | | | | [phone] | Hypoalbuminemia; | | | | | | Anemia in ESRD | | | | | | (end-stage renal | | | | | | disease) ([facility]); ESRD | | | | | | on hemodialysis | +--------+ + + + + Social [...] + + + + in this encounter Discharge Instructions Darell Kowalski MD - -Weigh yourself every day 2-If you notice weight gain of more than 3 lbs over night or 5 lbs over a week please call PCP 3- Low sodium diet(less than 2GM) 4- Fluid restriction to less than 2L over 24 hrs(including all the beverages) 5- Exercise every day as you tolerate in this encounter Medications at Time of [...] | + + +--------+---------+ + + | Etelcalcetide HCl | Inject into the | | | | | | (PARSABIV IV) | vein 3 (three) times | | | | | | | a week. | | | | | + + +--------+---------+ + + | | Take 2 tablets by | | | | | | HYDROcodone-acetamin | mouth nightly as | | | | | | ophen (NORCO) 5-325 | needed for Pain. | | | | | | MG per tablet | | | | | | + + +--------+---------+ + + | ondansetron | Take 4 mg by mouth | | | | | | (ZOFRAN) 4 MG tablet | every 6 (six) hours | | | | | | | as needed for | | | | | | | Nausea. | | | | | + + +--------+---------+ + + | sucroferric | Take 500 mg by mouth | | | | | | oxyhydroxide | 3 (three) times | | | | | | (VELPHORO) 500 MG | daily with meals. | | | | | | chewable tablet | | | | | | + + +--------+---------+ + + | hydrALAZINE | Take 1 tablet by | 90 | 3 | 06/02/19 | | | (APRESOLINE) 50 MG | mouth 3 (three) | tablet | | 19 | 0 | | tablet | times daily. | | | | | + + +--------+---------+ + + | isosorbide | Take 1 tablet by | 90 | 2 | 06/02/19 | | | dinitrate (ISORDIL) | mouth 3 (three) | tablet | | 19 | 0 | | 40 MG tablet | times daily. | | | | | + + +--------+---------+ + + | metoprolol | Take 1 tablet by | 30 | 2 | 06/03/19 | | | (TOPROL-XL) 25 MG 24 | mouth daily. | tablet | | 19 | 0 | | hr tablet | | | | | | + + +--------+---------+ + + | pantoprazole | Take 1 tablet by | 30 | 1 | 06/03/19 | | | (PROTONIX) 40 MG | mouth every morning | tablet | | 19 | 9 | | tablet | before breakfast for | | | | | | | 60 days. | | | | | + [...] | | + + +--------+---------+ + + as of this encounter Progress Notes Tino Paiz, HOSE INSPECTOR AND PATCHER - 06/01/2018 3:06 PM PDTFormatting of this note may be different fro m the original. [facility] Department of Respiratory Half-Way Oxygen Evaluation (Evaluation is valid for 48 hours once completed) Date: 06/01/2018 RT: Tino Paiz Time: 3:06 PM Home O2 Eval at rest-Part 1 Is the patient's SpO2 88% or lower at rest & breathing room air? : No SpO2 at rest & breathing room air: 96 percent Home O2 Eval during exercise-Part 2 Is the patient's SpO2 88% or lower during exercise & breathing room air? : No SpO2 during exercise & breathing room air : 94 percent Home O2 Eval Comment Eval Comment: Pt sats stayed above 96% at rest on room air. Pt ambulated around entire unit . On room air, pt sats stayed above 94%. No need for home O2. HOME OXYGEN PROVIDER PREFERENCE PHONE FAX *NOTE* Provider must include liter flow, route of oxygen administration, frequency of use w ith duration of need in months on the prescription AND document patient s diagnosis. OXYGEN PRN IS NOT A VALID ORDER Physician Signature: Date: Time: René Anguiano MD - 05/31/2018 11:32 AM PDTFormatting of this note may be different from th e original. Hospital Problem List: Principal Problem: Acute systolic CHF (congestive heart failure) (HCC) Active Problems: ESRD on hemodialysis SOB (shortness of breath) Pleural effusion on right Non-compliance Chronic systolic heart failure (HCC) Hyperphosphatemia Hyperkalemia Pulmonary artery hypertension (HCC) Non-rheumatic tricuspid valve insufficiency Non-rheumatic mitral regurgitation Diastolic dysfunction with chronic heart failure (HCC) At high risk for electrolyte imbalance Transaminitis The patient is seen & examined today. she says that she feels 'ok today. she denies any cp , dyspnea. She was admitted with symptomatic large right pleural effusion. She presented with: Had dyspnea on minimal exertion starting this last Monday. Worsened over the next few days. Was put on "an antibiotic" for pneumonia at [facility] ED. Was throwing up & could not keep it down. Severe worsening of the dyspnea yesterday. This week she had 1.5 dialysis treatments. In the ED she had 4L paracentesis, and 1L thoracentesis yesterday (05/26). The following portions of the patient's history were reviewed and updated as appropriate: l aboratory data, allergies, current medications, and problem list. Scheduled Meds: calcium carbonate 1,000 mg Oral BID cetirizine 10 mg Oral Daily clopidogrel 75 mg Oral Daily colchicine 0.6 mg Oral Daily heparin (porcine) 5000 unit/0.5mL 5,000 Units Subcutaneous 3 times per day hydrALAZINE 50 mg Oral TID isosorbide dinitrate 40 mg Oral TID lactulose 30 g Oral Daily metoprolol 25 mg Oral Daily nicotine 1 patch Transdermal Daily pantoprazole 40 mg Oral QAM AC senna-docusate 3 tablet Oral Nightly sevelamer 1,600 mg Oral TID WC Continuous Infusions: PRN Meds:.acetaminophen OR acetaminophen, benzonatate, diphenhydrAMINE, ondansetron O R ondansetron, oxyCODONE, polyethylene glycol, promethazine, sodium chloride (bolus), sodi um chloride (bolus), sodium chloride, traMADol, zolpidem BP 139/79 (BP Location: Right upper arm) | Pulse 78 | Temp 98 F (36.7 C) (Oral) | Re sp 20 | Ht 1.702 m (5' 7") | Wt 96.9 kg (213 lb 10 oz) | SpO2 98% | ? No | BMI 33.46 kg/m General appearance: Pleasant, not in acute distress. Lungs: Clear to auscultation on left, decreased air entry on right lower field. There are no wheezes. Heart: Regular rate and rhythm without any rub, gallop. Grade 2/[address] at the apex. Abdominal exam: Soft and tender mid and upper with mild pressure. Extremities: Warm to touch with no leg edema. There is no cyanosis. Neurological: Awake, alert, and oriented to time, place, and person. Normal gross motor po wer. There is no asterixis. Access: LUE AVF with good thrill Lab Results Component Value Date BUN 19 05/31/2018 CREATININE 5.6 (H) 05/31/2018 EGFR 9 (L) 05/31/2018 NA 139 05/31/2018 K 4.3 05/31/2018 CL 99 05/31/2018 CO2 32 05/31/2018 CA 9.9 05/31/2018 PHOS 6.3 (H) 05/28/2018 MG 2.7 (H) 05/27/2018 ALB 3.0 (L) 05/31/2018 HGB 10.9 (L) 05/31/2018 Assessment: Ms. Louise is a 23 y.o. female patient with ESRD, HD. Longstanding history of non-adheren ce to dialysis or diet restrictions Presented with: worsening dyspnea, at rest the day of presentation Admitted with: symptomatic large right pleural effusion High risk for electrolyte imbalance Anemia of ESRD hypoalb Mild hypermag hyperphos Recommendations: Next dialysis treatment per the prelim submitted orders, MWF No acute METALLURGICAL TECHNICIAN indication ESTEFANY as indicated with HD Protein supplements stressed Strict I/O and Daily Weights Encourage IS KRISHNA Waters Addendum: I have seen & personally examined the pt with Trent KELLER; I have discussed the c ase with him. I agree with his findings & documentation. KRISHNA Waters started the documentation. Note, review of records, exam, recs, plan , discussions were completed & approved by myself. I have made changes to the above note, where appropriate, and discussed the content and the changes with the author on 05/31. MD Dex Messer, Darell Scott MD - 05/31/2018 9:42 AM PDTFormatting of this note may be different from pierre coleman. [facility] Service: Hospitalist Progress Note Pt: Dara Louise AGE/SEX: 23 y.o. female ROOM: 4441/4441-1 : 1995 PCP: TIEN NICHOLSON ADMIT DATE: 05/26/2018 TODAY'S DATE: 05/31/2018 Hospital Day/Hospital Course: LOS: [address] Belcher 23-year-old female with past medical history of end-stage renal disease on hemodialysis Mon, hypertension, anemia of chronic disease who went to [facility] with increasing shortness of breath found to have right pleural effusion who was transfer red to [facility] underwent right-sided diagnostic and therapeutic thoracocentesis with removal of 1 L of fluid likely transudative, Gram stain and cultures negative so far and al so had high volume paracentesis 4 L in the emergency department. Patient was started on Jackson ephin and azithromycin for possible pneumonia which was stopped as CT scan was negative for any pneumonia. Patient underwent CT scan of the chest which showed complete collapse of the right lower and middle lobe with partial collapse of right upper lobe. Patient echocardiogram came back and showed ejection fraction of 25% and cardiology consult ed. SUBJECTIVE: Patient seen and examine. She is feeling better today. Talking to me appropriately. Not in any kind of distress. On 05/30 She had a complaint of abdominal pain during hemodialysis. N o chest pain,MARSHALL. No cough on recumbency. Had no orthopnea or PND. No N/V or fever. Still fe eling tired and fatigued. No dizziness or lightheadedness. Scheduled Medications: calcium carbonate 1,000 mg Oral BID cetirizine 10 mg Oral Daily clopidogrel 75 mg Oral Daily colchicine 0.6 mg Oral Daily heparin (porcine) 5000 unit/0.5mL 5,000 Units Subcutaneous 3 times per day hydrALAZINE 50 mg Oral TID isosorbide dinitrate 40 mg Oral TID lactulose 30 g Oral Daily metoprolol 25 mg Oral Daily nicotine 1 patch Transdermal Daily pantoprazole 40 mg Oral QAM AC senna-docusate 3 tablet Oral Nightly sevelamer 1,600 mg Oral TID WC Continuous Infusions PRN Medications acetaminophen OR acetaminophen, benzonatate, diphenhydrAMINE, ondansetron OR ondans etron, oxyCODONE, polyethylene glycol, promethazine, sodium chloride (bolus), sodium chlorid e (bolus), sodium chloride, traMADol, zolpidem Allergy: Allergies Allergen Reactions Fentanyl Itching Iodinated Diagnostic Agents Itching Pt c/o face itching during fistulagram Morphine Rash Tape [Adhesive Tape] Rash Use silk tape only OBJECTIVE: Vitals: Patient Vitals for the past 24 hrs: BP Temp Temp src Pulse Resp SpO2 05/31/18 0900 130/81 - - 75 - - 05/31/18 0807 126/74 97.7 F (36.5 C) Oral 66 16 97 % 05/31/18 0320 139/79 98 F (36.7 C) Oral 78 20 98 % 05/30/18 2301 128/67 97.8 F (36.6 C) Oral 78 20 97 % 05/30/18 1934 - 98 F (36.7 C) Oral 71 20 92 % 05/30/18 1706 126/82 98.1 F (36.7 C) Oral 78 18 95 % 05/30/18 1514 136/79 - - - - - 05/30/18 1213 124/74 - - - - - 05/30/18 1115 124/74 98 F (36.7 C) - 72 18 97 % 05/30/18 1100 129/78 - - 76 20 - 05/30/18 1045 115/80 - - 81 18 - 05/30/18 1030 114/64 - - 73 18 - 05/30/18 1015 127/72 - - 73 20 - 05/30/18 1000 116/69 - - 79 20 94 % 05/30/18 0945 113/69 - - 75 20 - I&O Detailed Table: Intake/Output Summary (Last 24 hours) at 05/31/18 0942 Last data filed at 05/31/18 0515 Gross per 24 hour Intake 1060 ml Output 2200 ml Net -1140 ml No data found. Hemodynamics Last 24hrs: Physical Examination: Constitutional: She is awake and alert and talking to me appropriately. Not in any kind of distress. HEENT: Neck supple, no JVD, non icteric sclera. Cardiovascular: Normal rate,s1,s2 Pulmonary/Chest: Occasional crackles bilateral Abdominal: Soft. Bowel sounds are normal. exhibits no distension and no mass. There is no t enderness. There is no rebound and no guarding. Extremeties/Musculoskeletal: Normal range of motion.exhibits no tenderness. exhibits no ed ton. Neurological: Alert and oriented to person, place, and time. Skin: Skin is warm and dry. No rash noted. No erythema. No pallor. Psychiatric: Has a normal mood and affect. Behavior is normal. Judgment normal. Not suicida l LABS: Recent Labs Lab 05/31/18 0504 05/30/18 0418 05/29/18 045 WBC 4.57 4.80 5.44 HGB 10.9* 10.7* 11.9 HCT 32.9* 31.7* 35.8 PLT 107* 118* 138* NEUTOPHILPCT 55.65 58.60 56.93 MONOPCT 7.18 6.15 7.25 Recent Labs Lab 05/31/18 0504 05/30/18 0418 05/29/18 0457 NA 139 138 139 K 4.3 3.8 4.2 CL 99 97* 98* CO2 32 31 31 BUN 19 34* 25 CREATININE 5.6* 7.8* 6.0* PROT 6.6 6.4 6.7 BILITOT 0.9 0.8 0.8 ALT 299* 375* 527* AST 134* 182* 343* Phosphorus: Lab Results Component Value Date PHOS 6.3 (H) 05/28/2018 Recent Labs Lab 05/27/18 0425 MG 2.7* Recent Labs Lab 05/29/18 0852 05/26/18 1214 APTT 29 29 INR 1.5 1.6 Recent Labs Lab 05/28/18 0923 TSH 1.270 Recent Labs Lab 05/28/18 1359 05/28/18 0923 05/26/18 1214 CKTOTAL -- -- 291* TROPONINI 0.037 0.034 -- CKMBINDEX -- -- 2.7 Results Procedure Component Value Units Date/Time Culture, Body Fluid [[id number]] Collected: 05/26/18 1412 Specimen: Body Fluid from Pleural Fluid Updated: 05/30/18 0733 Specimen Description PLEURAL FLUID GRAM STAIN WBC'S SEEN GRAM STAIN NO ORGANISMS SEEN GRAM STAIN STAIN PERFORMED ON CYTOSPIN CULTURE NO GROWTH 4 DAYS Culture, Body Fluid [[id number]] Collected: 05/26/18 1513 Specimen: Other from Ascites Fluid Updated: 05/30/18 0732 Specimen Description ASCITES FLUID GRAM STAIN STAIN PERFORMED ON CYTOSPIN GRAM STAIN WBC'S SEEN GRAM STAIN NO EPITHELIAL CELLS SEEN GRAM STAIN NO ORGANISMS SEEN CULTURE NO GROWTH 4 DAYS Gram stain [[id number]] Collected: 05/29/18 1256 Specimen: Sputum from Thoracic Fluid Updated: 05/29/18 2339 Specimen Description THORACIC FLUID CULTURE 1+ WBC'S SEEN NO ORGANISMS SEEN Lactate dehydrogenase, body fluid [[id number]] Collected: 05/29/18 1256 Specimen: Body Fluid from Pleural, Right Updated: 05/29/18 1619 FLUID LDH 151 U/L Cholesterol, body fluid [[id number]] Collected: 05/29/18 1256 Specimen: Body Fluid from Pleural, Right Updated: 05/29/18 1619 FLUID CHOLESTEROL 56 mg/dL Sputum culture [[id number]] Collected: 05/27/182014 Specimen: Sputum from Sputum Updated: 05/29/18 0947 Specimen Description SPUTUM GRAM STAIN LESS THAN 10 WBCS/LPF GRAM STAIN LESS THAN 10 SEC/LPF GRAM STAIN NO ORGANISMS SEEN CULTURE 1+ NORMAL UPPER RESPIRATORY ALESSANDRO Diagnostic Imaging: Impressions only: Xr Chest 2 View Result Date: 05/27/2018 1. Large right-sided pleural effusion is causing near complete atelectasis of the entire ri ght lung with only a small aerated portion of right upper lobe remaining. 2. Small left-side d pleural effusion at the posterior costophrenic angle. 3. Findings appear largely unchanged from yesterday. Signed by: Rai Espinoza Sign Date/Time: 05/27/2018 11:20 AM Xr Chest Pa And Lateral Result Date: 05/26/2018 1. Status post thoracentesis with reported approximately 1 L of fluid removed. There is re sidual pleural effusion which is similar to slightly decreased since the pre thoracentesis s tudy. 2. Wedge like opacity at the superior segment right upper lobe with more lucent area a t the right lung base as seen on the lateral view. This suggests airspace consolidation pote ntially infectious in etiology. 3. No pneumothorax. 4. Streaky left lower lobe opacity most likely representing atelectasis. Signed by: MD Lakhwinder, Florian Sign Date/Time: 05/26/2018 4:[address] Chest Non-con Result Date: 05/26/2018 1. Large right and small left pleural effusions. This results in near complete collapse of the right lower and right middle lobes and partial collapse of the right upper lobe. 2. Mos aic pattern of lucencies in the left lung, which may represent air trapping or emphysema. Si gned by: MD Debbie, El Sign Date/Time: 05/26/2018 4:55 PM X-ray Chest 1 View Result Date: 05/29/2018 Moderate improvement of the right-sided pleural effusion. Right basilar opacity to likely r esent atelectasis and/or airspace disease. Signed by: MD Currie Chet Sign Date/Time: 05/29 2:32 PM Us Abdomen Limited Result Date: 05/28/2018 Upper abdomen ultrasound without identified gallbladder abnormality or biliary dilatation. Moderate ascites and right pleural effusion as seen on recent CT. Patient is on peritoneal d ialysis. Signed by: MD Ba Gregory Sign Date/Time: 05/28/2018 9:24 PM Echo Cardiac Adult Complete Result Date: 05/27/2018 1. Sinus rhythm. 2. A 2-dimensional transthoracic echocardiogram with m-mode, spectral and color flow Doppler was perfomed. 3. This was a technically adequate study. 4. Overall left v entricular systolic function is severely impaired with, an EF between 20 - 25 %. 5. The left ventricle cavity size is normal. 6. There is mild concentric left ventricular hypertrophy. 7. There is severe global hypokinesis of LV contractility. 8. There is septal flattening in diastole which is consistent with right ventricular volume overload. 9. Pseudonormal LV mccartney tolic filling pattern, consistent with elevated LA pressure and moderate dysfunction (Grade II). 10. The right ventricle is moderately enlarged. 11. The right ventricular systolic func tion is mildly impaired. 12. The left atrial size is normal. 13. The right atrium is moderat fredi enlarged. 14. The aortic valve is trileaflet. 15. There is mild aortic regurgitation. 16 . There is no evidence of aortic stenosis. 17. The mitral valve is normal. 18. Ugth-zc-zeics ate eccentric mitral regurgitation is present. 19. Severe tricuspid regurgitation present. 2 0. The right ventricular systolic pressure (pulmonary artery systolic pressure), as measured by Doppler, is 30+15=45 mmHg. Non-coaptation of the TV leaflets. 21. Mild pulmonic regurgit ation. 22. There is no pericardial effusion. 23. Pleural effusion present. 24. The IVC is di lated (>2.5cm) and does not collapse with sniff, consistent with central venous pressures o f 15 mmHg. 25. The aortic root, ascending aorta and aortic arch are normal. 26. No mass visu alized 27. No clot visualized Us Thoracentesis (includes Imaging) Result Date: 05/29/2018 Uncomplicated right thoracentesis. Drainage of 1500 cc clear straw-colored fluid. Signed b y: Quang Bustos Sign Date/Time: 05/29/2018 3:39 PM PROBLEM LIST Principal Problem: Acute systolic CHF (congestive heart failure) (HCC) Active Problems: ESRD on hemodialysis SOB (shortness of breath) Pleural effusion on right Non-compliance Chronic systolic heart failure (HCC) Hyperphosphatemia Hyperkalemia Pulmonary artery hypertension (HCC) Non-rheumatic tricuspid valve insufficiency Non-rheumatic mitral regurgitation Diastolic dysfunction with chronic heart failure (HCC) At high risk for electrolyte imbalance Transaminitis Resolved Problems: * No resolved hospital problems. * ASSESSMENT & PLAN 23-year-old female with past medical history of end-stage renal disease on hemodialysis Mon day Monday, hypertension, anemia of chronic disease who went to [facility] with increasing shortness of breath due to acute congestive heart failure Acute systolic congestive heart failure with Pleural Effusion: Admitted with acute systolic congestive heart failure with bilateral pleural effusion stat us post thoracentesis 2. Her breathing has improved. She is talking to me appropriately. N ot in any kind of distress. resident services coordinator to initiate the discharge plan. Possible dischar ge plan tomorrow. Active Problems: ESRD on hemodialysis She is getting hemodialysis. She had on and off episode of abdominal pain during dialysis. I recommended not to give IV Dilaudid Hyperphosphatemia With Hyperkalemia. Will continue with HD Pulmonary artery hypertension (HCC) With Non-rheumatic tricuspid valve insufficiency. And Non-rheumatic mitral regurgitation a nd underlying chronic Diastolic dysfunction with chronic heart failure (HCC) Transaminitis Due to CHF and it is getting better. Resolved Problems: * No resolved hospital problems. * Patient diagnosed with: , and I agree with the following nutritional recommendations: DARELL KOWALSKI MD, FACP 05/31/2018 9:42 AM Dictation software, [employer], used which may contain error for similar sounding words even af ter review. Personal communication requested for any clarification. Portions of this chart may have been copied from previous notes for continuity of care purp Darell Segundo MD - 05/30/2018 9:09 AM PDTFormatting of this note may be different from pierre coleman. [facility] Service: Hospitalist Progress Note Pt: Dara Louise AGE/SEX: 23 y.o. female ROOM: 4441/4441-1 : 1995 PCP: TIEN NICHOLSON ADMIT DATE: 05/26/2018 TODAY'S DATE: 05/30/2018 Hospital Day/Hospital Course: LOS: [address] Belcher 23-year-old female with past medical history of end-stage renal disease on hemodialysis Mon, hypertension, anemia of chronic disease who went to [facility] with increasing shortness of breath found to have right pleural effusion who was transfer red to [facility] underwent right-sided diagnostic and therapeutic thoracocentesis with removal of 1 L of fluid likely transudative, Gram stain and cultures negative so far and al so had high volume paracentesis 4 L in the emergency department. Patient was started on Jackson ephin and azithromycin for possible pneumonia which was stopped as CT scan was negative for any pneumonia. Patient underwent CT scan of the chest which showed complete collapse of the right lower and middle lobe with partial collapse of right upper lobe. Patient echocardiogram came back and showed ejection fraction of 25% and cardiology consult ed. SUBJECTIVE: Patient seen and examine. She had a complaint of abdominal pain during hemodialysis. Short ness of breath has improved. No chest pain,MARSHALL. No cough on recumbency. Had no orthopnea or PND. No N/V or fever. Still feeling tired and fatigued. No dizziness or lightheadedness. Scheduled Medications: calcium carbonate 1,000 mg Oral BID cetirizine 10 mg Oral Daily clopidogrel 75 mg Oral Daily colchicine 0.6 mg Oral Daily heparin (porcine) 5000 unit/0.5mL 5,000 Units Subcutaneous 3 times per day hydrALAZINE 50 mg Oral TID isosorbide dinitrate 40 mg Oral TID lactulose 30 g Oral Daily metoprolol 25 mg Oral Daily nicotine 1 patch Transdermal Daily pantoprazole 40 mg Oral QAM AC senna-docusate 3 tablet Oral Nightly sevelamer 1,600 mg Oral TID WC Continuous Infusions PRN Medications acetaminophen OR acetaminophen, benzonatate, diphenhydrAMINE, ondansetron OR ondans etron, oxyCODONE, polyethylene glycol, promethazine, sodium chloride (bolus), sodium chlorid e (bolus), sodium chloride, zolpidem Allergy: Allergies Allergen Reactions Fentanyl Itching Iodinated Diagnostic Agents Itching Pt c/o face itching during fistulagram Morphine Rash Tape [Adhesive Tape] Rash Use silk tape only OBJECTIVE: Vitals: Patient Vitals for the past 24 hrs: BP Temp Temp src Pulse Resp SpO2 05/30/18 0900 120/72 - - 85 - 05/30/18 0845 121/67 - - 79 05/30/18 0830 128/73 - - 81 05/30/18 0815 124/71 - - 83 05/30/18 0800 130/73 - - 77 05/30/18 0745 125/73 - - 75 05/30/18 0729 118/69 - - 79 18 05/30/18 0715 126/75 97.6 F (36.4 C) - 81 18 93 % 05/30/18 0338 117/69 98.6 F (37 C) Oral 80 18 92 % 03/26/19 2342 118/63 98.2 F (36.8 C) Oral 85 18 98 % 05/29/18 1943 139/86 98 F (36.7 C) - 80 18 95 % 05/29/18 1547 138/80 98.1 F (36.7 C) Oral 83 18 98 % 05/29/18 1506 131/83 - - - - - 05/29/18 1314 133/84 97.6 F (36.4 C) Oral - 20 100 % 05/29/18 1238 126/84 97.6 F (36.4 C) Oral 75 18 91 % I&O Detailed Table: Intake/Output Summary (Last 24 hours) at 05/30/18 0910 Last data filed at 05/29/18 1800 Gross per 24 hour Intake 240 ml Output 0 ml Net 240 ml Patient Vitals for the past 96 hrs: Weight 05/26/18 1912 96.9 kg (213 lb 10 oz) Hemodynamics Last 24hrs: Physical Examination: Constitutional: Alert and oriented to person, place, and time. HEENT: Neck supple, no JVD, non icteric sclera. Cardiovascular: Normal rate, regular rhythm, normal heart sounds with S1 and S2, and intact distal pulses. Exam reveals no gallop and no friction rub. No murmur heard. Pulmonary/Chest: Occasional crackles bilateral Abdominal: Soft. Bowel sounds are normal. exhibits no distension and no mass. There is no t enderness. There is no rebound and no guarding. Extremeties/Musculoskeletal: Normal range of motion.exhibits no tenderness. exhibits no ed ton. Neurological: Alert and oriented to person, place, and time. Skin: Skin is warm and dry. No rash noted. No erythema. No pallor. Psychiatric: Has a normal mood and affect. Behavior is normal. Judgment normal. Not suicida l LABS: Recent Labs Lab 05/30/1841705/29/18 04505/28/18 09 WBC 4.80 5.44 5.10 HGB 10.7* 11.9 11.9 HCT 31.7* 35.8 35.5 PLT 118* 138* 142* NEUTOPHILPCT 58.60 56.93 59.97 MONOPCT 6.15 7.25 6.53 Recent Labs Lab 05/30/18 0418 05/29/18 0457 05/28/18 1209 05/28/18 0923 NA 138 139 141 137 K 3.8 4.2 4.3 4.2 CL 97* 98* 101 96* CO2 31 31 29 29 BUN 34* 25 43* 43* CREATININE 7.8* 6.0* 7.97* 8.4* PROT 6.4 6.7 -- 6.5 BILITOT 0.8 0.8 -- 0.9 ALT 375* 527* -- 599* AST 182* 343* -- 538* Phosphorus: Lab Results Component Value Date PHOS 6.3 (H) 05/28/2018 Recent Labs Lab 05/27/18 0425 MG 2.7* Recent Labs Lab 05/29/18 0852 05/26/18 1214 APTT 29 29 INR 1.5 1.6 Recent Labs Lab 05/28/18 0923 TSH 1.270 Recent Labs Lab 05/28/18 1359 05/28/18 0923 05/26/18 1214 CKTOTAL -- -- 291* TROPONINI 0.037 0.034 -- CKMBINDEX -- -- 2.7 Results Procedure Component Value Units Date/Time Culture, Body Fluid [[id number]] Collected: 05/26/18 1412 Specimen: Body Fluid from Pleural Fluid Updated: 05/30/18 0733 Specimen Description PLEURAL FLUID GRAM STAIN WBC'S SEEN GRAM STAIN NO ORGANISMS SEEN GRAM STAIN STAIN PERFORMED ON CYTOSPIN CULTURE NO GROWTH 4 DAYS Culture, Body Fluid [[id number]] Collected: 05/26/18 1513 Specimen: Other from Ascites Fluid Updated: 05/30/18 0732 Specimen Description ASCITES FLUID GRAM STAIN STAIN PERFORMED ON CYTOSPIN GRAM STAIN WBC'S SEEN GRAM STAIN NO EPITHELIAL CELLS SEEN GRAM STAIN NO ORGANISMS SEEN CULTURE NO GROWTH 4 DAYS Gram stain [[id number]] Collected: 05/29/18 1256 Specimen: Sputum from Thoracic Fluid Updated: 05/29/18 1890 Specimen Description THORACIC FLUID CULTURE 1+ WBC'S SEEN NO ORGANISMS SEEN Lactate dehydrogenase, body fluid [[id number]] Collected: 05/29/18 1256 Specimen: Body Fluid from Pleural, Right Updated: 05/29/18 1619 FLUID LDH 151 U/L Cholesterol, body fluid [[id number]] Collected: 05/29/18 1256 Specimen: Body Fluid from Pleural, Right Updated: 05/29/18 1619 FLUID CHOLESTEROL 56 mg/dL Sputum culture [[id number]] Collected: 05/27/182014 Specimen: Sputum from Sputum Updated: 05/29/18 0947 Specimen Description SPUTUM GRAM STAIN LESS THAN 10 WBCS/LPF GRAM STAIN LESS THAN 10 SEC/LPF GRAM STAIN NO ORGANISMS SEEN CULTURE 1+ NORMAL UPPER RESPIRATORY ALESSANDRO Diagnostic Imaging: Impressions only: Xr Chest 2 View Result Date: 05/27/2018 1. Large right-sided pleural effusion is causing near complete atelectasis of the entire ri ght lung with only a small aerated portion of right upper lobe remaining. 2. Small left-side d pleural effusion at the posterior costophrenic angle. 3. Findings appear largely unchanged from yesterday. Signed by: Rai Espinoza Sign Date/Time: 05/27/2018 11:20 AM Xr Chest Pa And Lateral Result Date: 05/26/2018 1. Status post thoracentesis with reported approximately 1 L of fluid removed. There is re sidual pleural effusion which is similar to slightly decreased since the pre thoracentesis s tudy. 2. Wedge like opacity at the superior segment right upper lobe with more lucent area a t the right lung base as seen on the lateral view. This suggests airspace consolidation pote ntially infectious in etiology. 3. No pneumothorax. 4. Streaky left lower lobe opacity most likely representing atelectasis. Signed by: MD Lakhwinder, Florian Sign Date/Time: 05/26/2018 4:[address] Chest Non-con Result Date: 05/26/2018 1. Large right and small left pleural effusions. This results in near complete collapse of the right lower and right middle lobes and partial collapse of the right upper lobe. 2. Mos aic pattern of lucencies in the left lung, which may represent air trapping or emphysema. Si gned by: MD Lewis John Sign Date/Time: 05/26/2018 4:55 PM X-ray Chest 1 View Result Date: 05/29/2018 Moderate improvement of the right-sided pleural effusion. Right basilar opacity to likely r esent atelectasis and/or airspace disease. Signed by: MD Kush, Xander Sign Date/Time: 05/29 2:32 PM Us Abdomen Limited Result Date: 05/28/2018 Upper abdomen ultrasound without identified gallbladder abnormality or biliary dilatation. Moderate ascites and right pleural effusion as seen on recent CT. Patient is on peritoneal d ialysis. Signed by: MD Ba Gregory Sign Date/Time: 05/28/2018 9:24 PM Echo Cardiac Adult Complete Result Date: 05/27/2018 1. Sinus rhythm. 2. A 2-dimensional transthoracic echocardiogram with m-mode, spectral and color flow Doppler was perfomed. 3. This was a technically adequate study. 4. Overall left v entricular systolic function is severely impaired with, an EF between 20 - 25 %. 5. The left ventricle cavity size is normal. 6. There is mild concentric left ventricular hypertrophy. 7. There is severe global hypokinesis of LV contractility. 8. There is septal flattening in diastole which is consistent with right ventricular volume overload. 9. Pseudonormal LV mccartney tolic filling pattern, consistent with elevated LA pressure and moderate dysfunction (Grade II). 10. The right ventricle is moderately enlarged. 11. The right ventricular systolic func tion is mildly impaired. 12. The left atrial size is normal. 13. The right atrium is moderat fredi enlarged. 14. The aortic valve is trileaflet. 15. There is mild aortic regurgitation. 16 . There is no evidence of aortic stenosis. 17. The mitral valve is normal. 18. Gsvm-lj-zlyjn ate eccentric mitral regurgitation is present. 19. Severe tricuspid regurgitation present. 2 0. The right ventricular systolic pressure (pulmonary artery systolic pressure), as measured by Doppler, is 30+15=45 mmHg. Non-coaptation of the TV leaflets. 21. Mild pulmonic regurgit ation. 22. There is no pericardial effusion. 23. Pleural effusion present. 24. The IVC is di lated (>2.5cm) and does not collapse with sniff, consistent with central venous pressures o f 15 mmHg. 25. The aortic root, ascending aorta and aortic arch are normal. 26. No mass visu alized 27. No clot visualized Us Thoracentesis (includes Imaging) Result Date: 05/29/2018 Uncomplicated right thoracentesis. Drainage of 1500 cc clear straw-colored fluid. Signed b y: Quang Bustos Sign Date/Time: 05/29/2018 3:39 PM PROBLEM LIST Principal Problem: Acute systolic CHF (congestive heart failure) (HCC) Active Problems: ESRD on hemodialysis SOB (shortness of breath) Pleural effusion on right Non-compliance Chronic systolic heart failure (HCC) Hyperphosphatemia Hyperkalemia Pulmonary artery hypertension (HCC) Non-rheumatic tricuspid valve insufficiency Non-rheumatic mitral regurgitation Diastolic dysfunction with chronic heart failure (HCC) At high risk for electrolyte imbalance Transaminitis Resolved Problems: * No resolved hospital problems. * ASSESSMENT & PLAN 23-year-old female with past medical history of end-stage renal disease on hemodialysis Mon day Monday, hypertension, anemia of chronic disease who went to [facility] with increasing shortness of breath due to acute congestive heart failure Acute systolic congestive heart failure with Pleural Effusion: Admitted with acute systolic congestive heart failure with bilateral pleural effusion stat us post thoracentesis 2. We will continue with current medication regimen. Her shortness o f breath is better now. Active Problems: ESRD on hemodialysis She is getting hemodialysis. She had on and off episode of abdominal pain during dialysis. I recommended not to give IV Dilaudid Hyperphosphatemia With Hyperkalemia. Will continue with HD Pulmonary artery hypertension (HCC) With Non-rheumatic tricuspid valve insufficiency. And Non-rheumatic mitral regurgitation a nd underlying chronic Diastolic dysfunction with chronic heart failure (HCC) Transaminitis Due to CHF Resolved Problems: * No resolved hospital problems. * Patient diagnosed with: , and I agree with the following nutritional recommendations: DARELL KOWALSKI MD, FACP 05/30/2018 9:10 AM Dictation software, [employer], used which may contain error for similar sounding words even af ter review. Personal communication requested for any clarification. Portions of this chart may have been copied from previous notes for continuity of care purp Carolina Camarillo, - 05/29/2018 7:56 PM PDTFormatting of this note may be different from th e original. [facility] Service: Cardiology Progress Note Hospital Day: LOS: 3 days SUBJECTIVE Patient Summary: In summary, this is a 23-year-old female with a history of end-stag e renal disease on hemodialysis (of which she is sometimes non-compliant) who presents with congestive heart failure with significant right pleural effusion and abdominal ascites. She has undergone right thoracentesis and paracentesis. Echocardiogram demonstrates new onset ej ection fraction of 25% as well as severe tricuspid regurgitation, mild to moderate mitral re gurgitation, and mild right ventricular dysfunction. Possible etiologies of her cardiomyopat hy include viral myocarditis, ischemic cardiomyopathy, auto immune related, familial, idiopa thic etc. At this time, will focus on uptitrating her heart failure therapies and working to wards getting her more euvolemic through dialysis. Events Overnight: The patient underwent right-sided thoracentesis with 1500 cc of flu id removed. She also underwent HD today. She has been tolerating titration of her heart fail ure therapies. Scheduled Medications calcium carbonate 1,000 mg Oral BID cetirizine 10 mg Oral Daily clopidogrel 75 mg Oral Daily colchicine 0.6 mg Oral Daily heparin (porcine) 5000 unit/0.5mL 5,000 Units Subcutaneous 3 times per day hydrALAZINE 25 mg Oral TID isosorbide dinitrate 20 mg Oral TID lactulose 30 g Oral Daily metoprolol 25 mg Oral Daily nicotine 1 patch Transdermal Daily pantoprazole 40 mg Oral QAM AC senna-docusate 3 tablet Oral Nightly sevelamer 1,600 mg Oral TID WC Continuous Infusions PRN Medications acetaminophen OR acetaminophen, benzonatate, diphenhydrAMINE, ondansetron OR ondans etron, oxyCODONE, polyethylene glycol, promethazine, sodium chloride (bolus), sodium chlorid e, zolpidem OBJECTIVE Vital Signs: BP 139/86 (BP Location: Right upper arm) | Pulse 80 | Temp 98 F (36.7 C) | Resp 18 | Ht 1.702 m (5' 7") | Wt 96.9 kg (213 lb 10 oz) | SpO2 95% | ? No | BMI 33 .46 kg/m Temp: [97.6 F (36.4 C)-98.2 F (36.8 C)] 98 F (36.7 C) (05/29 1942) BP: (117-139)/(71-86) 139/86 (05/29 1942) Heart Rate: [70-83] 80 (05/29 1942) Resp: [17-20] 18 (05/29 1942) SpO2: [91 %-100 %] 95 % (05/29 1942) I&O Last 3 Shifts: 05/28 0700 - 05/29 1859 In: 1240 [P.O.:240] Out: 3000 GENERAL: Well developed, obese, in no distress on O2 nc. Appears approximately stated age . HEENT: Normocephalic, atraumatic. EYES: Sclerae anicteric, no xanthelsasmas MOUTH: Oral mucosae moist, dentition adequate, HSV lesions upper lip NECK: No JVD, lymphadenopathy, thyromegaly, bruits. Carotid pulses are 2+ bilaterally LUNGS: Decreased breath sounds right side. No wheezing. Respirations unlabored HEART: Regular rate and rhythm, S1, S2 normal. Murmur left lower sternal border. No rubs or gallops noted. ABDOMEN: Soft, nontender, no organomegaly, masses or bruits. Bowel sounds are normal in a ll 4 quadrants. EXTREMITIES: No edema. Radial pulses 2+ right, difficult to palpate on the left. AVF noted left arm. DP and PT pulses are 2+ bilaterally. SKIN: Warm and dry, capillary refill is normal.. NEUROLOGIC: Awake, alert and oriented x 3. No focal motor deficits. PSYCHIATRIC: Appropriate, affect appears normal DATA CBC: Lab Results Component Value Date WBC 5.44 05/29/2018 RBC 3.30 (L) 05/29/2018 HGB 11.9 05/29/2018 HCT 35.8 05/29/2018 MCV 108.6 (H) 05/29/2018 MCH 36.1 (H) 05/29/2018 MCHC 33.3 05/29/2018 RDW 54.7 (H) 05/29/2018 PLT 138 (L) 05/29/2018 MPV 10.4 05/29/2018 DIFFTYPE AUTOMATED 05/29/2018 CMP: Lab Results Component Value Date NA 139 05/29/2018 K 4.2 05/29/2018 CL 98 (L) 05/29/2018 CO2 31 05/29/2018 ANIONGAP 14 05/29/2018 GLUF 94 05/29/2018 BUN 25 05/29/2018 CREATININE 6.0 (H) 05/29/2018 BCR 4 05/29/2018 CA 9.5 05/29/2018 PROT 6.7 05/29/2018 ALB 3.0 (L) 05/29/2018 GLOB 3.7 05/29/2018 BILITOT 0.8 05/29/2018 ALP 117 (H) 05/29/2018 AST 343 (H) 05/29/2018 ALT 527 (H) 05/29/2018 EGFR 9 (L) 05/29/2018 PROBLEM LIST Active Problems: ESRD on hemodialysis SOB (shortness of breath) Pleural effusion on right Non-compliance Chronic systolic heart failure (HCC) Hyperphosphatemia Hyperkalemia Pulmonary artery hypertension (HCC) Non-rheumatic tricuspid valve insufficiency Non-rheumatic mitral regurgitation Diastolic dysfunction with chronic heart failure (HCC) At high risk for electrolyte imbalance Acute systolic CHF (congestive heart failure) (HCC) Transaminitis ASSESSMENT & PLAN 1. Acute systolic heart failure decompensation EF 20-25% etiology unknown 2. Right pleural effusion status post thoracentesis 3. Abdominal ascites 4. Respiratory syncytial virus infection 5. Severe TR 6. Mild to moderate MR 7. Pulmonary hypertension with right ventricular systolic pressure 45 mmHg 8. ESRD 9. Anemia 10. HTN 11. Transaminitis - In summary, this is a 23-year-old female with a history of end-stage renal disease on he modialysis (of which she is sometimes non-compliant) who presents with congestive heart fail ure with significant right pleural effusion and abdominal ascites. She has undergone right t horacentesis and paracentesis. Echocardiogram demonstrates new onset ejection fraction of 25 % as well as severe tricuspid regurgitation, mild to moderate mitral regurgitation, and mild right ventricular dysfunction. Possible etiologies of her cardiomyopathy include viral myoc arditis, ischemic cardiomyopathy, auto immune related, familial, idiopathic etc. At this franco e, will focus on uptitrating her heart failure therapies and working towards getting her mor e euvolemic through dialysis. She underwent another right thoracentesis. Her breathing has g reatly improved. - Continue heart failure therapies with metoprolol succinate 25 mg by mouth daily, increase hydralazine to 50 mg by mouth 3 times daily, increase isosorbide dinitrate to 40 mg by mout h 3 times daily. - Continue fluid removal with hemodialysis - will plan for ischemic evaluation with coronary angiogram as an outpatient. Carolina Mahmood DO 05/29/2018Anthony Belcher MD - 05/29/2018 1:43 PM PDTFormatting of this note may be differe nt from the original. Hospitalist Progress Note Dara Louise 23 y.o. [id number] female [facility] Day: LOS: 3 days Patient Summary: 23-year-old female with past medical history of end-stage renal dis ease on hemodialysis Monday, hypertension, anemia of chronic disease who we nt to [facility] with increasing shortness of breath found to have right pleural e ffusion who was transferred to [facility] underwent right-sided diagnostic and therapeu tic thoracocentesis with removal of 1 L of fluid likely transudative, Gram stain and culture s negative so far and also had high volume paracentesis 4 L in the emergency department. Abe hamilton was started on Rocephin and azithromycin for possible pneumonia which was stopped as C T scan was negative for any pneumonia. Patient underwent CT scan of the chest which showed complete collapse of the right lower and middle lobe with partial collapse of right upper lo be. Patient echocardiogram came back and showed ejection fraction of 25% and cardiology consult ed. SUBJECTIVE and Events Overnight: Patient seen and examine. No acute over night event. Today when I went to see the patient she was resting comfortably with decrease in shortness of breath though still get winded wit h exertion, no chest pain no nausea no vomiting no abdominal pain. eScheduled Medications calcium carbonate 1,000 mg Oral BID cetirizine 10 mg Oral Daily clopidogrel 75 mg Oral Daily colchicine 0.6 mg Oral Daily heparin (porcine) 5000 unit/0.5mL 5,000 Units Subcutaneous 3 times per day hydrALAZINE 25 mg Oral TID isosorbide dinitrate 20 mg Oral TID lactulose 30 g Oral Daily metoprolol 25 mg Oral Daily nicotine 1 patch Transdermal Daily pantoprazole 40 mg Oral QAM AC senna-docusate 3 tablet Oral Nightly sevelamer 1,600 mg Oral TID WC Continuous Infusions PRN Medications acetaminophen OR acetaminophen, benzonatate, diphenhydrAMINE, ondansetron OR ondans etron, oxyCODONE, polyethylene glycol, promethazine, sodium chloride (bolus), sodium chlorid e, zolpidem Allergy: Allergies Allergen Reactions Fentanyl Itching Iodinated Diagnostic Agents Itching Pt c/o face itching during fistulagram Morphine Rash Tape [Adhesive Tape] Rash Use silk tape only OBJECTIVE Vital Signs: BP 133/84 (BP Location: Right upper arm) | Pulse 75 | Temp 97.6 F (36.4 C) (Oral) | Resp 20 | Ht 1.702 m (5' 7") | Wt 96.9 kg (213 lb 10 oz) | SpO2 100% | ? No | BMI 33.46 kg/m Temp: [97.6 F (36.4 C)-98.2 F (36.8 C)] 97.6 F (36.4 C) (05/29 131) BP: (111-137)/(59-85) 133/84 (05/29 131) Heart Rate: [66-88] 75 (05/29 1238) Resp: [17-20] 20 (05/29 131) SpO2: [91 %-100 %] 100 % (05/29 1313) I&O Detailed Table: Intake/Output Summary (Last 24 hours) at 05/29/18 1343 Last data filed at 05/28/18 1610 Gross per 24 hour Intake 1000 ml Output 3000 ml Net -2000 ml Hemodynamics Last 24hrs: Examination: Constitutional: Alert and oriented to person, place, and time. Cardiovascular: Normal rate, regular rhythm, normal heart sounds and intact distal pulses. Exam reveals no gallop and no friction rub. No murmur heard. Pulmonary/Chest: Effort normal and breath sounds normal. No stridor. No respiratory distres s. no wheezes. no rales. exhibits no tenderness. Except decreased breath sound right lowe r lobe and left lung tidwell clear Abdominal: Soft. Bowel sounds are normal. exhibits no distension and no mass. There is no e pigastric tenderness. There is no rebound and no guarding. Musculoskeletal: Normal range of motion.exhibits no tenderness. exhibits no edema. Neurological: Alert and oriented to person, place, and time. Has normal reflexes. display s normal reflexes. No cranial nerve deficit. Exhibits normal muscle tone. Coordination norm al. Skin: Skin is warm and dry. No rash noted. No erythema. No pallor. Psychiatric: Has a normal mood and affect. Behavior is normal. Judgment normal. Laboratory: Glucose: Results Procedure Component Value Units Date/Time Lactate dehydrogenase, body fluid [[id number]] Collected: 05/29/18 1256 Specimen: Body Fluid from Pleural, Right Updated: 05/29/18 1315 Cholesterol, body fluid [[id number]] Collected: 05/29/18 1256 Specimen: Body Fluid from Pleural, Right Updated: 05/29/18 1315 Gram stain [[id number]] Collected: 05/29/18 1256 Specimen: Sputum from OTHR-w source desc (F6) Updated: 05/29/18 1309 Sputum culture [[id number]] Collected: 05/27/182014 Specimen: Sputum from Sputum Updated: 05/29/18 0947 Specimen Description SPUTUM GRAM STAIN LESS THAN 10 WBCS/LPF GRAM STAIN LESS THAN 10 SEC/LPF GRAM STAIN NO ORGANISMS SEEN CULTURE 1+ NORMAL UPPER RESPIRATORY ALESSANDRO HIV 1/2 Ab reflex [[id number]] Collected: 05/28/18 1236 Specimen: Blood Updated: 05/29/18 0942 HIV1/HIV2 NON REACTIVE Protime-INR [[id number]] Collected: 05/29/18 0852 Specimen: Blood Updated: 05/29/18 0940 INR 1.5 APTT [[id number]] Collected: 05/29/1852 Specimen: Blood Updated: 05/29/1840 APTT 29 seconds Culture, Body Fluid [[id number]] Collected: 05/26/18 1513 Specimen: Other from Ascites Fluid Updated: 05/29/18 0920 Specimen Description ASCITES FLUID GRAM STAIN STAIN PERFORMED ON CYTOSPIN GRAM STAIN WBC'S SEEN GRAM STAIN NO EPITHELIAL CELLS SEEN GRAM STAIN NO ORGANISMS SEEN CULTURE NO GROWTH 3 DAYS Culture, Body Fluid [[id number]] Collected: 05/26/18 1412 Specimen: Body Fluid from Pleural Fluid Updated: 05/29/18 0918 Specimen Description PLEURAL FLUID CULTURE NO GROWTH 3 DAYS Comprehensive metabolic panel [[id number]] (Abnormal) Collected: 05/29/18 0457 Specimen: Blood Updated: 05/29/18 0616 SODIUM 139 mmol/L POTASSIUM 4.2 mmol/L CHLORIDE 98 (L) mmol/L CO2 31 mmol/L ANION GAP AGAP 14 mmol/L GLUCOSE 94 mg/dL BUN 25 mg/dL CREATININE 6.0 (H) mg/dL BUN/CREAT 4 CALCIUM 9.5 mg/dL TOTAL PROTEIN 6.7 g/dL Albumin 3.0 (L) g/dL GLOBULIN 3.7 g/dL A/G 0.8 (L) TBIL 0.8 mg/dL ALK PHOS 117 (H) U/L AST 343 (H) U/L ALT 527 (H) U/L EGFR 9 (L) mL/min/1.73m2 CBC W/Auto Diff (Reflex to Manual) [[id number]] (Abnormal) Collected: 05/29/18 0457 Specimen: Blood Updated: 05/29/1813 WBC 5.44 K/uL RBC 3.30 (L) M/uL HGB 11.9 g/dL HCT 35.8 % MCV 108.6 (H) fl MCH 36.1 (H) pg MCHC 33.3 g/dL RDW SD 54.7 (H) fl PLT 138 (L) K/uL MPV 10.4 fl DIFF TYPE AUTOMATED NEUTROPHILS 56.93 % LYMPHOCYTES 24.38 % MONOCYTES 7.25 % EOSINOPHILS 10.48 % BASOPHILS 0.96 % NEUTROPHILS ABS 3.10 K/uL LYMPHOCYTES ABS 1.33 K/uL MONOCYTES ABS 0.39 K/uL EOSINOPHILS ABS 0.57 (H) K/uL BASOPHILS ABS 0.05 K/uL MORPHOLOGY 2+ hCG, serum, qualitative [[id number]] Collected: 05/28/18922 Specimen: Blood Updated: 05/28/18 1950 TEST,SERUM NEGATIVE C-reactive protein [[id number]] (Abnormal) Collected: 05/28/18922 Specimen: Blood Updated: 05/28/18 1941 CRP 5.1 (H) mg/dL Sedimentation rate, automated [[id number]] Collected: 05/28/18922 Specimen: Blood Updated: 05/28/18 1734 ESR 2 mm/Hr Hepatitis panel,acute [[id number]] Collected: 05/28/18 1236 Specimen: Blood Updated: 05/28/18 1650 HAV AB,IGM NON REACTIVE HEP B SURFACE AG NON REACTIVE ANTI HEP B CORE,IGM NON REACTIVE HEPATITIS C NON REACTIVE HEPATITIS INTERP No serologic evidence of HAV, HBV, or HCV infection. Troponin I [[id number]] Collected: 05/28/18922 Specimen: Blood Updated: 05/28/18 143 TROPONIN I 0.034 ng/mL Troponin I [[id number]] Collected: 05/28/18 1359 Specimen: Blood Updated: 05/28/18 1437 TROPONIN I 0.037 ng/mL Renal function panel [[id number]] (Abnormal) Collected: 05/28/18 1209 Specimen: Blood from Blood Updated: 05/28/18 1302 SODIUM 141 mmol/L POTASSIUM 4.3 mmol/L CHLORIDE 101 mmol/L CO2 29 mmol/L ANION GAP AGAP 15 mmol/L GLUCOSE 78 mg/dL BUN 43 (H) mg/dL CREATININE 7.97 (H) mg/dL CALCIUM 9.1 mg/dL Albumin 3.6 g/dL PHOSPHORUS 6.3 (H) mg/dL EGFR 6 (L) mL/min/1.73m2 CBC W/Auto Diff (Reflex to Manual) [[id number]] (Abnormal) Collected: 05/28/18922 Specimen: Blood Updated: 05/28/18 1241 WBC 5.10 K/uL RBC 3.25 (L) M/uL HGB 11.9 g/dL HCT 35.5 % MCV 109.1 (H) fl MCH 36.6 (H) pg MCHC 33.5 g/dL RDW SD 56.9 (H) fl PLT 142 (L) K/uL MPV 10.6 fl DIFF TYPE AUTOMATED NEUTROPHILS 59.97 % LYMPHOCYTES 26.66 % MONOCYTES 6.53 % EOSINOPHILS 5.86 % BASOPHILS 0.98 % NEUTROPHILS ABS 3.06 K/uL LYMPHOCYTES ABS 1.36 K/uL MONOCYTES ABS 0.33 K/uL EOSINOPHILS ABS 0.30 K/uL BASOPHILS ABS 0.05 K/uL MORPHOLOGY 1+ Comprehensive metabolic panel [[id number]] (Abnormal) Collected: 05/28/18922 Specimen: Blood Updated: 05/28/181209 SODIUM 137 mmol/L POTASSIUM 4.2 mmol/L CHLORIDE 96 (L) mmol/L CO2 29 mmol/L ANION GAP AGAP 16 mmol/L GLUCOSE 113 (H) mg/dL BUN 43 (H) mg/dL CREATININE 8.4 (H) mg/dL BUN/CREAT 5 CALCIUM 9.0 mg/dL TOTAL PROTEIN 6.5 g/dL Albumin 3.0 (L) g/dL GLOBULIN 3.5 g/dL A/G 0.9 (L) TBIL 0.9 mg/dL ALK PHOS 106 U/L AST 538 (H) U/L ALT 599 (H) U/L EGFR 6 (L) mL/min/1.73m2 TSH [[id number]] Collected: 05/28/18922 Specimen: Blood Updated: 05/28/181209 TSH 1.270 uIU/mL Pathologist consult [[id number]] Collected: 05/26/18 1412 Updated: 05/28/18 1113 Pathologist Consult -- Hepatitis panel, chronic [[id number]] (Abnormal) Collected: 05/27/181757 Updated: 05/27/182030 Hep A Total Ab REACTIVE (A) HEP B SURFACE AG NON REACTIVE HEP B CORE AB,TOTAL NON REACTIVE HEP B SURFACE ANTIBODY 3.27 (H) IV HEPATITIS C NON REACTIVE HEPATITIS INTERP Current or past HAV infection. Past HBV infection or vaccination. No ser ologic evidence of HCV infection. CBC w/auto diff (reflex to manual) [[id number]] (Abnormal) Collected: 05/27/18424 Specimen: Blood Updated: 05/27/18710 WBC 6.62 K/uL RBC 3.48 (L) M/uL HGB 12.5 g/dL HCT 37.9 % MCV 108.8 (H) fl MCH 35.8 (H) pg MCHC 32.9 g/dL RDW SD 59.1 (H) fl PLT 139 (L) K/uL MPV 9.9 fl DIFF TYPE AUTOMATED NEUTROPHILS 67.20 % LYMPHOCYTES 19.48 % MONOCYTES 11.06 % EOSINOPHILS 1.54 % BASOPHILS 0.72 % NEUTROPHILS ABS 4.45 K/uL LYMPHOCYTES ABS 1.29 K/uL MONOCYTES ABS 0.73 K/uL EOSINOPHILS ABS 0.10 K/uL BASOPHILS ABS 0.05 K/uL MORPHOLOGY 2+ Platelet Estimate DECREASED Phosphorus [[id number]] (Abnormal) Collected: 05/27/18424 Specimen: Blood Updated: 05/27/18628 PHOSPHORUS 8.0 (H) mg/dL Basic Metabolic Panel [[id number]] (Abnormal) Collected: 05/27/18424 Specimen: Blood Updated: 05/27/18628 SODIUM 135 mmol/L POTASSIUM 5.9 (H) mmol/L CHLORIDE 96 (L) mmol/L CO2 25 mmol/L ANION GAP AGAP 20 mmol/L GLUCOSE 74 mg/dL BUN 51 (H) mg/dL CREATININE 9.2 (H) mg/dL BUN/CREAT 6 CALCIUM 9.4 mg/dL EGFR 5 (L) mL/min/1.73m2 Magnesium [[id number]] (Abnormal) Collected: 05/27/18424 Specimen: Blood Updated: 03/24/19 0629 MAGNESIUM 2.7 (H) mg/dL Brain natriuretic peptide [[id number]] (Abnormal) Collected: 05/27/18 0425 Specimen: Blood Updated: 05/27/18 0546 BRAIN NATRIURETIC PEPTIDE 1,153.92 (H) pg/mL Respiratory Filmarray [[id number]] (Abnormal) Collected: 05/26/18 180 Specimen: Nasopharynx/Oropharynx Updated: 05/26/18 214 ADENOVIRUS Not Detected CORONAVIRUS 229E Not Detected CORONAVIRUS HKU1 Not Detected CORONAVIRUS NL63 Not Detected CORONAVIRUS OC43 Not Detected HUMAN METAPNEUMOVIRUS Not Detected HUMAN RHINO/ENTERO Not Detected INFLUENZA A Not Detected INFLUENZA B Not Detected PARAINFLUENZA 1 Not Detected PARAINFLUENZA 2 Not Detected PARAINFLUENZA 3 Not Detected PARAINFLUENZA 4 Not Detected RESP SYNCYTIAL VIRUS DETECTED (A) BORDETELLA PERTUSSIS Not Detected CHLAMYDIAE PNEUMONIAE Not Detected MYCOPLASMA PNEUMONIAE Not Detected RESP PANEL INTERP Testing performed by Molecular Methodology MRSA by PCR [[id number]] Collected: 05/26/181805 Specimen: Nasopharyngeal from Nares(Nose) Updated: 05/26/182025 SOURCE NARES(NOSE) MRSA PCR NEGATIVE Procalcitonin [[id number]] (Abnormal) Collected: 05/26/18 1727 Updated: 05/26/18 1839 PROCALCITONIN 0.76 (H) ng/mL Albumin, Body Fluid [[id number]] Collected: 05/26/181411 Specimen: Body Fluid from Lung, Right Lower Lobe Updated: 05/26/181728 FLUID ALBUMIN 2.3 g/dL Total Protein, Body Fluid [[id number]] Collected: 05/26/18 141 Specimen: Body Fluid from Lung, Right Lower Lobe Updated: 05/26/18 172 FLUID TOTAL PROTEIN 4.2 g/dL FLUID TP SOURCE PLEURAL FLUID Cell count, Body Fluid [[id number]] Collected: 05/26/181411 Specimen: Body Fluid from Lung, Right Lower Lobe Updated: 05/26/181707 FLUID TYPE PLEURAL FLUID COLOR SAMMIE APPEARANCE CLOUDY RBC'S 3,000 /mm3 TOTAL NUCLEATED CELLS 253 /mm3 NEUTROPHILS 22 % LYMPHOCYTES 8 % MONOCYTES/MACROPHAGES 65 % Mesothelial Cells 5 % CELLS COUNTED 100 pH, Body Fluid [[id number]] Collected: 05/26/18 1412 Specimen: Body Fluid from Lung, Right Lower Lobe Updated: 05/26/18 1508 FLUID PH 7.45 CBC: Lab Results Component Value Date WBC 5.44 05/29/2018 RBC 3.30 (L) 05/29/2018 HGB 11.9 05/29/2018 HCT 35.8 05/29/2018 MCV 108.6 (H) 05/29/2018 MCH 36.1 (H) 05/29/2018 MCHC 33.3 05/29/2018 RDW 54.7 (H) 05/29/2018 PLT 138 (L) 05/29/2018 MPV 10.4 05/29/2018 DIFFTYPE AUTOMATED 05/29/2018 CMP: Lab Results Component Value Date NA 139 05/29/2018 K 4.2 05/29/2018 CL 98 (L) 05/29/2018 CO2 31 05/29/2018 ANIONGAP 14 05/29/2018 GLUF 94 05/29/2018 BUN 25 05/29/2018 CREATININE 6.0 (H) 05/29/2018 BCR 4 05/29/2018 CA 9.5 05/29/2018 PROT 6.7 05/29/2018 ALB 3.0 (L) 05/29/2018 GLOB 3.7 05/29/2018 BILITOT 0.8 05/29/2018 ALP 117 (H) 05/29/2018 AST 343 (H) 05/29/2018 ALT 527 (H) 05/29/2018 EGFR 9 (L) 05/29/2018 Magnesium: Lab Results Component Value Date MG 2.7 (H) 05/27/2018 Phosphorus: Lab Results Component Value Date PHOS 6.3 (H) 05/28/2018 PT/INR: Lab Results Component Value Date INR 1.5 05/29/2018 Last 3 Troponin: Lab Results Component Value Date TROPONINI 0.037 05/28/2018 TROPONINI 0.034 05/28/2018 ABG: No results found for: POCPH, POCPCO, POCPO2, POCHCO, POCTCO2, POCBD, BEART, POCSO2, P OCCMT Xr Chest 2 View Result Date: 05/27/2018 CHEST TWO VIEWS CLINICAL INFORMATION: Follow up pneumonia . COMPARISON: CT CHEST WO CONTRAS T (05/26/2018); XR CHEST 2 VIEW FRONTAL AND LATERAL (05/26/2018); XR CHEST 1 VIEW (05/26/2018); FINDINGS: A large right-sided pleural effusion is creating near complete opacification of t he entire right hemithorax with only a small amount of residual aerated lung seen at the rig ht upper lobe. A small left-sided pleural effusion is seen at the posterior costophrenic an gle. The left lung is otherwise well aerated. The heart is normal in size. The pulmonary vascular pattern is normal. Overlying oxygen tubing is seen. The osseous structures are in tact. 1. Large right-sided pleural effusion is causing near complete atelectasis of the entire ri ght lung with only a small aerated portion of right upper lobe remaining. 2. Small left-side d pleural effusion at the posterior costophrenic angle. 3. Findings appear largely unchanged from yesterday. Signed by: Rai Espinoza Sign Date/Time: 05/27/2018 11:20 AM Xr Chest Pa And Lateral Result Date: 05/26/2018 CHEST TWO VIEWS CLINICAL INFORMATION: Post thoracentesis. COMPARISON: XR CHEST 1 VIEW (05/26); XR CHEST 2 Views (05/25/2018); FINDINGS: Large right pleural effusion does not appear significantly changed since most recent comparison study. As seen on the lateral view ther e is wedge like density likely involving superior segment right lower lobe with lucency more inferiorly at the right lung base. Also density potentially representing pleural fluid or consolidation at the right middle lobe over the heart. No pneumothorax. Streaky opacity le ft lower lobe potentially representing atelectasis. Possible trace left pleural effusion. Cardiac and mediastinal silhouettes within normal limits of size. No focal bony lesions. 1. Status post thoracentesis with reported approximately 1 L of fluid removed. There is re sidual pleural effusion which is similar to slightly decreased since the pre thoracentesis s tudy. 2. Wedge like opacity at the superior segment right upper lobe with more lucent area a t the right lung base as seen on the lateral view. This suggests airspace consolidation pote ntially infectious in etiology. 3. No pneumothorax. 4. Streaky left lower lobe opacity most likely representing atelectasis. Signed by: MD Keane David Sign Date/Time: 05/26/2018 4:[address] Chest Non-con Result Date: 05/26/2018 CT CHEST WITHOUT CONTRAST CLINICAL INFORMATION: Pneumonia. COMPARISON: XR CHEST 2 VIEW FRON VASHTI AND LATERAL (05/26/2018); XR CHEST 2 Views (05/25/2018); PROCEDURE: Axial images through t he chest. Multiplanar reconstructions. At least one of the following CT dose optimization te chniques were used: Automated exposure control; Adjustment of mA and/or kV according to kota ent size; Use of iterative reconstruction technique. FINDINGS: Lungs, Pleura and Airways: La rge right and small left pleural effusion. Near complete collapse of the right lower lobe an d right middle lobe and partial collapse of the right upper lobe. Mosaic pattern of lucency in the lungs. Mediastinum: No significant pericardial, great vessel or esophageal abnormali ty. No mediastinal mass. Lymph Nodes: No adenopathy. Upper Abdomen: No significant abnormali ty in the visualized upper abdomen. BODY WALL Soft Tissues: The soft tissues of the chest wa ll are unremarkable. Bones: No acute fracture or vertebral end plate destruction. No lytic o r blastic lesion. 1. Large right and small left pleural effusions. This results in near complete collapse of the right lower and right middle lobes and partial collapse of the right upper lobe. 2. Mos aic pattern of lucencies in the left lung, which may represent air trapping or emphysema. Si gned by: MD Debbie, El Sign Date/Time: 05/26/2018 4:55 PM X-ray Chest 1 View Result Date: 05/26/2018 This is a non-reportable procedure without a radiologist report and is used for image stora ge only Us Abdomen Limited Result Date: 05/28/2018 ULTRASOUND ABDOMEN, LIMITED CLINICAL INFORMATION: Abdominal pain. COMPARISON: IR AV FISTULA GRAM IMAGING (09/01/2015); CT CHEST WO CONTRAST (05/26/2018); PROCEDURE: Evaluation of the gal lbladder, if present, common bile duct, liver, right kidney and pancreas. FINDINGS: Liver: N ormal contour and normal echogenicity with sagittal length of cm. Hepatopetal portal venou s flow. Right dome liver smooth hyperechoic 1.4 x 1.0 x 1.7 cm area consistent with a yogi ioma. Biliary: The CBD diameter is 3.4 mm. There is no intra or extrahepatic bile duct dilat ation. Gallbladder: No gallstones. No tenderness over the gallbladder. Pancreas: Pancreas i s seen at the head, body and shows normal echogenicity without ductal dilatation or fluid co llections. Splenomegaly again noted 15.8 cm. Bilateral kidneys is atrophic end-stage size wi thout hydronephrosis, stone or mass. Free fluid: Prominent ascites in this patient on perito danny dialysis. Large right pleural effusion seen as also seen on CT 05/26/2018. Upper abdomen ultrasound without identified gallbladder abnormality or biliary dilatation. Moderate ascites and right pleural effusion as seen on recent CT. Patient is on peritoneal d ialysis. Signed by: MD Mejia, Stevo Sign Date/Time: 05/28/2018 9:24 PM Echo Cardiac Adult Complete Result Date: 05/27/2018 Patient Name: DARA LOUISE Date of : 1995 Maryjane P azarsician: Robel Yusuf MD ____ INDICATIONS SOB CONCLUSIONS 1. Sinus rhythm. 2. A 2-dimensional transthoracic echocardiogram with m-mode, spectral and color flow Doppler was perfomed. 3. This was a technically adequate study. 4. Overall left ventricular systolic function is bebo rely impaired with, an EF between 20 - 25 %. 5. The left ventricle cavity size is normal. 6. There is mild concentric left ventricular hypertrophy. 7. There is severe global hypokinesi s of LV contractility. 8. There is septal flattening in diastole which is consistent with ri ght ventricular volume overload. 9. Pseudonormal LV diastolic filling pattern, consistent wi th elevated LA pressure and moderate dysfunction (Grade II). 10. The right ventricle is mode rately enlarged. 11. The right ventricular systolic function is mildly impaired. 12. The lef t atrial size is normal. 13. The right atrium is moderately enlarged. 14. The aortic valve i s trileaflet. 15. There is mild aortic regurgitation. 16. There is no evidence of aortic konrad nosis. 17. The mitral valve is normal. 18. Ntoo-tf-owamzxmd eccentric mitral regurgitation i s present. 19. Severe tricuspid regurgitation present. 20. The right ventricular systolic pr essure (pulmonary artery systolic pressure), as measured by Doppler, is 30+15=45 mmHg. Non-c oaptation of the TV leaflets. 21. Mild pulmonic regurgitation. 22. There is no pericardial e ffusion. 23. Pleural effusion present. 24. The IVC is dilated (>2.5cm) and does not collaps e with sniff, consistent with central venous pressures of 15 mmHg. 25. The aortic root, asce nding aorta and aortic arch are normal. 26. No mass visualized 27. No clot visualized FINDIN GS -------- ECG rhythm: Sinus rhythm. Study: A 2-dimensional transthoracic echocardiogram wi th m-mode, spectral and color flow Doppler was perfomed. Study: This was a technically adequ ate study. Left Ventricle: Overall left ventricular systolic function is severely impaired w ith, an EF between 20 - 25 %. Left Ventricle: The left ventricle cavity size is normal. Left Ventricle: There is mild concentric left ventricular hypertrophy. Left Ventricle: There is severe global hypokinesis of LV contractility. Left Ventricle: There is septal flattening in diastole which is consistent with right ventricular volume overload. Left Ventricle: Pseudo normal LV diastolic filling pattern, consistent with elevated LA pressure and moderate dysfu nction (Grade II). Right Ventricle: The right ventricle is moderately enlarged. Right Ventri renato: The right ventricular systolic function is mildly impaired. Left Atrium: The left atria l size is normal. Right Atrium: The right atrium is moderately enlarged. Aortic Valve: The a ortic valve is trileaflet. Aortic Valve: There is mild aortic regurgitation. Aortic Valve: T here is no evidence of aortic stenosis. Mitral Valve: The mitral valve is normal. Mitral Kait ve: Lkhc-ar-mitwuzxl eccentric mitral regurgitation is present. Tricuspid Valve: Severe tric uspid regurgitation present. Tricuspid Valve: The right ventricular systolic pressure (pulmo nary artery systolic pressure), as measured by Doppler, is 30+15=45 mmHg. Non-coaptation of the TV leaflets. Pulmonic Valve: Mild pulmonic regurgitation. Pericardium: There is no peric ardial effusion. Pericardium: Pleural effusion present. IVC/Hepatic Veins: The IVC is dilate d (>2.5cm) and does not collapse with sniff, consistent with central venous pressures of 15 mmHg. Aorta: The aortic root and ascending aorta are normal in size. Mass: No mass visualiz ed Thrombus: No clot visualized MEASUREMENTS RA Area: 28.23 cm2 Ao asc: 2. 62 cm Ao sinus: 2.49 cm IVC: 2.62 cm EDV(Teich): 118.24 ml IVSd: 1.15 cm LVIDd: 4. 99 cm LVPWd: 1.27 cm LVOT Diam: 1.91 cm %FS: 9.56 % EF(Teich): 20.92 % ESV(Teich): 93.49 ml IVSs: 1.28 cm LVIDs: 4.52 cm LVPWs: 1.50 cm SV(Teich): 24.74 ml RA Major: 6.10 cm RVIDd: 4.54 cm LVEF MOD A2C: 18.03 % SV MOD A2C: 26.28 ml LVEF MOD A4C: 22 .87 % SV MOD A4C: 31.28 ml EF Biplane: 18.90 % LVEDV MOD BP: 142.56 ml LVESV MOD BP: 115.61 ml LVEDV MOD A2C: 145.73 ml LVLd A2C: 9.47 cm LVEDV MOD A4C: 136.75 ml LVLd A4 C: 9.26 cm LVESV MOD A2C: 119.44 ml LVLs A2C: 9.18 cm LVESV MOD A4C: 105.47 ml LVLs A4C: 8.58 cm LAESV(A-L): 63.30 ml LAESV Index (A-L): 30.43 ml/m2 LAAs A2C: 20.97 cm2 LAESV A-L A2C: 65.71 ml LALs A2C: 5.68 cm LAAs A4C: 19.94 cm2 LAESV A-L A4C: 60.20 ml LALs A4C: 5.60 cm TAPSE: 1.58 cm HR: 79.62 BPM AV maxP.06 mmHg AV meanP .71 mmHg AV Vmax: 1.23 m/s AV Vmean: 0.92 m/s AV VTI: 20.07 cm TIMA Vmax: 1.74 cm2 AV A (VTI): 1.93 cm2 AVAI Vmax: 0.00 cm2/m2 AVAI (VTI): 0.00 cm2/m2 LVOT maxP.22 mm Hg LVOT meanP.03 mmHg LVSI Dopp: 18.70 ml/m2 LVSV Dopp: 38.91 ml LVOT Vmax: 0.74 m/s LVOT Vmean: 0.45 m/s LVOT VTI: 13.50 cm MV A Shahid: 0.54 m/s MV DecT: 117.65 ms M V E Shahid: 0.80 m/s MV E/A Ratio: 1.46 Septal e': 0.03 m/s Septal E/e': 26.26 Lateral e': 0.04 m/s Lateral E/e': 16.81 RV S': 0.07 m/s TR maxP.08 mmHg TR Vmax: 2.7 4 m/s Director Oracle Database: MOO Authenticated by: Robel Yusuf MD Report Date/Time: 05-27-2018 13: 59:57 1. Sinus rhythm. 2. A 2-dimensional transthoracic echocardiogram with m-mode, spectral and color flow Doppler was perfomed. 3. This was a technically adequate study. 4. Overall left v entricular systolic function is severely impaired with, an EF between 20 - 25 %. 5. The left ventricle cavity size is normal. 6. There is mild concentric left ventricular hypertrophy. 7. There is severe global hypokinesis of LV contractility. 8. There is septal flattening in diastole which is consistent with right ventricular volume overload. 9. Pseudonormal LV mccartney tolic filling pattern, consistent with elevated LA pressure and moderate dysfunction (Grade II). 10. The right ventricle is moderately enlarged. 11. The right ventricular systolic func tion is mildly impaired. 12. The left atrial size is normal. 13. The right atrium is moderat fredi enlarged. 14. The aortic valve is trileaflet. 15. There is mild aortic regurgitation. 16 . There is no evidence of aortic stenosis. 17. The mitral valve is normal. 18. Esye-xh-fxmhn ate eccentric mitral regurgitation is present. 19. Severe tricuspid regurgitation present. 2 0. The right ventricular systolic pressure (pulmonary artery systolic pressure), as measured by Doppler, is 30+15=45 mmHg. Non-coaptation of the TV leaflets. 21. Mild pulmonic regurgit ation. 22. There is no pericardial effusion. 23. Pleural effusion present. 24. The IVC is di lated (>2.5cm) and does not collapse with sniff, consistent with central venous pressures o f 15 mmHg. 25. The aortic root, ascending aorta and aortic arch are normal. 26. No mass visu alized 27. No clot visualized PROBLEM LIST Active Problems: ESRD on hemodialysis SOB (shortness of breath) Pleural effusion on right Non-compliance Chronic systolic heart failure (HCC) Hyperphosphatemia Hyperkalemia Pulmonary artery hypertension (HCC) Non-rheumatic tricuspid valve insufficiency Non-rheumatic mitral regurgitation Diastolic dysfunction with chronic heart failure (HCC) At high risk for electrolyte imbalance Acute systolic CHF (congestive heart failure) (HCC) Transaminitis ASSESSMENT & PLAN Bilateral pleural effusion right more than left likely secondary to fluid overload from nguyen ng noncompliant with hemodialysis status post right side thoracentesis and fluid transudativ e in nature, repeated chest x-ray showed large right pleural effusion an echo showed ejectio n fraction of 25% which is also contributing to pleural effusions Plan: I discussed the case with Dr. Charis Villasenor pulmonary yesterdayo who recommended u ltrasound-guided thoracentesis againwhich has been ordered for yesterday which was not done as patient was in dialysis and awaiting therapeutic thoracocentesis again today Acute systolic CHF exacerbation likely cause of bilateral pleural effusions as well echocar diogram showed ejection fraction of 25% Plan continue the patient on hemodialysis and right-sided thoracocentesis ordered again Appreciate cardiology input End stage renal disease on hemodialysis plan last hemodialysis yesterday and due for tomorrow before discharge hyperkalemia secondary to end-stage renal disease resolved Epigastric tenderness likely secondary to gastritis resolved Plan continue the patient on Tums and Protonix Acute bronchitis from RSV on sportive care and discontinue antibiotics Transaminitis could be secondary to systolic CHF, LFTs trending downwards, hepatitis panel negative and ultrasound gallbladder negative patient asymptomatic and continue to check CMP daily DVT prophylaxis on heparin ANTHONY BELCHER MD 05/29/2018 René Anguiano MD - 05/29/2018 7:26 AM PDTFormatting of this note may be different from e [facility]. Hospital Problem List: Active Problems: ESRD on hemodialysis SOB (shortness of breath) Pleural effusion on right Non-compliance Chronic systolic heart failure (HCC) Hyperphosphatemia Hyperkalemia Pulmonary artery hypertension (HCC) Non-rheumatic tricuspid valve insufficiency Non-rheumatic mitral regurgitation Diastolic dysfunction with chronic heart failure (HCC) At high risk for electrolyte imbalance Acute systolic CHF (congestive heart failure) (HCC) Transaminitis The patient is seen & examined today. she says that she feels 'ok' today. she denies any c p, dyspnea. She was admitted with symptomatic large right pleural effusion. She presented with: Had dyspnea on minimal exertion starting this last Monday. Worsened over the next few days. Was put on "an antibiotic" for pneumonia at [facility] ED. Was throwing up & could not keep it down. Severe worsening of the dyspnea yesterday. This week she had 1.5 dialysis treatments. In the ED she had 4L paracentesis, and 1L thoracentesis yesterday (05/26). The following portions of the patient's history were reviewed and updated as appropriate: l aboratory data, allergies, current medications, and problem list. Scheduled Meds: calcium carbonate 1,000 mg Oral BID cetirizine 10 mg Oral Daily clopidogrel 75 mg Oral Daily colchicine 0.6 mg Oral Daily heparin (porcine) 5000 unit/0.5mL 5,000 Units Subcutaneous 3 times per day hydrALAZINE 25 mg Oral TID isosorbide dinitrate 20 mg Oral TID losartan 25 mg Oral Daily metoprolol 25 mg Oral Daily nicotine 1 patch Transdermal Daily pantoprazole 40 mg Oral QAM AC senna-docusate 3 tablet Oral Nightly sevelamer 1,600 mg Oral TID WC Continuous Infusions: PRN Meds:.acetaminophen OR acetaminophen, benzonatate, diphenhydrAMINE, HYDROcodone-[place] taminophen, ondansetron OR ondansetron, polyethylene glycol, promethazine, sodium chlori de (bolus), sodium chloride, zolpidem BP 125/80 | Pulse 70 | Temp 97.8 F (36.6 C) (Oral) | Resp 20 | Ht 1.702 m (5' 7") | Wt 96.9 kg (213 lb 10 oz) | SpO2 97% | ? No | BMI 33.46 kg/m General appearance: Pleasant, not in acute distress. Lungs: Clear to auscultation on left, significantly decreased air entry on right lower mid field. There are no wheezes. Heart: Regular rate and rhythm without any rub, gallop. Grade 2/[address] at the apex. Abdominal exam: Soft and nontender. Extremities: Warm to touch with no leg edema. There is no cyanosis. Neurological: Awake, alert, and oriented to time, place, and person. Normal gross motor po wer. There is no asterixis. Access: LUE AVF with good thrill. Lab Results Component Value Date BUN 25 05/29/2018 CREATININE 6.0 (H) 05/29/2018 EGFR 9 (L) 05/29/2018 NA 139 05/29/2018 K 4.2 05/29/2018 CL 98 (L) 05/29/2018 CO2 31 05/29/2018 CA 9.5 05/29/2018 PHOS 6.3 (H) 05/28/2018 MG 2.7 (H) 05/27/2018 ALB 3.0 (L) 05/29/2018 HGB 11.9 05/29/2018 Assessment: Ms. Louise is a 23 y.o. female patient with ESRD, HD. Longstanding history of non-adheren ce to dialysis or diet restrictions Presented with: worsening dyspnea, at rest the day of presentation Admitted with: symptomatic large right pleural effusion Anemia of ESRD hypoalb Mild hypermag hyperphos Recommendations: Next dialysis treatment per the prelim submitted orders, MWF No acute METALLURGICAL TECHNICIAN indication ESTEFANY as indicated with HD Protein supplements stressed Strict I/O and Daily Weights Encourage IS KRISHNA Waters Addendum: I have seen & personally examined the pt with Trent KELLER; I have discussed the c ase with him. I agree with his findings & documentation. KRISHNA Waters started the documentation. Note, review of records, exam, recs, plan , discussions were completed & approved by myself. I have made changes to the above note, where appropriate, and discussed the content and the changes with the author on 05/29. MD Henry Messer Sandeep, MD - 05/28/2018 12:26 PM PDTFormatting of this note may be different from t chacha original. Hospitalist Progress Note Dara Louise 23 y.o. [id number] female [facility] Day: LOS: 2 days Patient Summary: 23-year-old female with past medical history of end-stage renal dis ease on hemodialysis Monday, hypertension, anemia of chronic disease who we nt to [facility] with increasing shortness of breath found to have right pleural e ffusion who was transferred to [facility] underwent right-sided diagnostic and therapeu tic thoracocentesis with removal of 1 L of fluid likely transudative, Gram stain and culture s negative so far and also had high volume paracentesis 4 L in the emergency department. Abe hamilton was started on Rocephin and azithromycin for possible pneumonia which was stopped as C T scan was negative for any pneumonia. Patient underwent CT scan of the chest which showed complete collapse of the right lower and middle lobe with partial collapse of right upper lo be. Patient echocardiogram came back and showed ejection fraction of 25% and cardiology consult ed SUBJECTIVE and Events Overnight: Patient seen and examine. No acute over night event. Today when I went to see the patient she Was complaining of chest pain 3-5 out of 10 when she lies flat and gets better when sitt ing up, her shortness of breath is significantly better, denied any nausea no vomiting thoug h she's complaining of mild epigastric pain getting better. eScheduled Medications calcium carbonate 1,000 mg Oral BID cetirizine 10 mg Oral Daily clopidogrel 75 mg Oral Daily colchicine 0.6 mg Oral Daily heparin (porcine) 2,000 Units Intracatheter Once in dialysis heparin (porcine) 5000 unit/0.5mL 5,000 Units Subcutaneous 3 times per day hydrALAZINE 10 mg Oral TID isosorbide mononitrate 30 mg Oral QPM losartan 25 mg Oral Daily metoprolol 25 mg Oral BID nicotine 1 patch Transdermal Daily pantoprazole 40 mg Oral QAM AC senna-docusate 3 tablet Oral Nightly sevelamer 1,600 mg Oral TID WC Continuous Infusions PRN Medications acetaminophen OR acetaminophen, benzonatate, heparin (porcine), HYDROcodone-acetaminoph en, HYDROmorphone, ondansetron OR ondansetron, polyethylene glycol, promethazine, sodium chloride (bolus), sodium chloride, zolpidem Allergy: Allergies Allergen Reactions Fentanyl Itching Iodinated Diagnostic Agents Itching Pt c/o face itching during fistulagram Morphine Rash Tape [Adhesive Tape] Rash Use silk tape only OBJECTIVE Vital Signs: BP 116/71 (BP Location: Right upper arm) | Pulse 70 | Temp 97.1 F (36.2 C) (Oral) | Resp 18 | Ht 1.702 m (5' 7") | Wt 96.9 kg (213 lb 10 oz) | SpO2 91% | ? No | BMI 33.46 kg/m Temp: [97.1 F (36.2 C)-98.1 F (36.7 C)] 97.1 F (36.2 C) (05/28 0345) BP: (110-131)/(50-91) 116/71 (05/28 744) Heart Rate: [69-87] 70 (05/28 744) Resp: [18] 18 (05/28 744) SpO2: [91 %-99 %] 91 % (05/28 744) I&O Detailed Table: Intake/Output Summary (Last 24 hours) at 05/28/18 1226 Last data filed at 05/28/18 0432 Gross per 24 hour Intake 1900 ml Output 2447 ml Net -547 ml Hemodynamics Last 24hrs: Examination: Constitutional: Alert and oriented to person, place, and time. Cardiovascular: Normal rate, regular rhythm, normal heart sounds and intact distal pulses. Exam reveals no gallop and no friction rub. No murmur heard. Pulmonary/Chest: Effort normal and breath sounds normal. No stridor. No respiratory distres s. no wheezes. no rales. exhibits no tenderness. Except decreased breath sound bilaterally right lower lobe more than the left Abdominal: Soft. Bowel sounds are normal. exhibits no distension and no mass. There is mild epigastric tenderness. There is no rebound and no guarding. Musculoskeletal: Normal range of motion.exhibits no tenderness. exhibits no edema. Neurological: Alert and oriented to person, place, and time. Has normal reflexes. display s normal reflexes. No cranial nerve deficit. Exhibits normal muscle tone. Coordination norm al. Skin: Skin is warm and dry. No rash noted. No erythema. No pallor. Psychiatric: Has a normal mood and affect. Behavior is normal. Judgment normal. Laboratory: Glucose: Results Procedure Component Value Units Date/Time Culture, Body Fluid [[id number]] Collected: 05/26/18 1513 Specimen: Other from Ascites Fluid Updated: 05/28/18 122 Specimen Description ASCITES FLUID GRAM STAIN STAIN PERFORMED ON CYTOSPIN GRAM STAIN WBC'S SEEN GRAM STAIN NO EPITHELIAL CELLS SEEN GRAM STAIN NO ORGANISMS SEEN CULTURE NO GROWTH 2 DAYS Culture, Body Fluid [[id number]] Collected: 05/26/18 141 Specimen: Body Fluid from Pleural Fluid Updated: 05/28/18 122 Specimen Description PLEURAL FLUID CULTURE NO GROWTH 2 DAYS Comprehensive metabolic panel [[id number]] (Abnormal) Collected: 05/28/18922 Specimen: Blood Updated: 05/28/181209 SODIUM 137 mmol/L POTASSIUM 4.2 mmol/L CHLORIDE 96 (L) mmol/L CO2 29 mmol/L ANION GAP AGAP 16 mmol/L GLUCOSE 113 (H) mg/dL BUN 43 (H) mg/dL CREATININE 8.4 (H) mg/dL BUN/CREAT 5 CALCIUM 9.0 mg/dL TOTAL PROTEIN 6.5 g/dL Albumin 3.0 (L) g/dL GLOBULIN 3.5 g/dL A/G 0.9 (L) TBIL 0.9 mg/dL ALK PHOS 106 U/L AST 538 (H) U/L ALT 599 (H) U/L EGFR 6 (L) mL/min/1.73m2 TSH [[id number]] Collected: 05/28/18922 Specimen: Blood Updated: 05/28/18 1210 TSH 1.270 uIU/mL Pathologist consult [[id number]] Collected: 05/26/181411 Updated: 05/28/18 1113 Pathologist Consult -- Troponin I [[id number]] Collected: 05/28/18922 Specimen: Blood Updated: 05/28/18 1055 CBC W/Auto Diff (Reflex to Manual) [[id number]] Collected: 05/28/18922 Specimen: Blood Updated: 05/28/18938 Sputum culture [[id number]] Collected: 05/27/182014 Specimen: Sputum from Sputum Updated: 05/28/18902 Specimen Description SPUTUM GRAM STAIN LESS THAN 10 WBCS/LPF GRAM STAIN LESS THAN 10 SEC/LPF GRAM STAIN NO ORGANISMS SEEN CULTURE CULTURE IN PROGRESS Hepatitis panel, chronic [[id number]] (Abnormal) Collected: 05/27/181757 Updated: 05/27/182030 Hep A Total Ab REACTIVE (A) HEP B SURFACE AG NON REACTIVE HEP B CORE AB,TOTAL NON REACTIVE HEP B SURFACE ANTIBODY 3.27 (H) IV HEPATITIS C NON REACTIVE HEPATITIS INTERP Current or past HAV infection. Past HBV infection or vaccination. No ser ologic evidence of HCV infection. CBC w/auto diff (reflex to manual) [[id number]] (Abnormal) Collected: 05/27/18424 Specimen: Blood Updated: 05/27/18710 WBC 6.62 K/uL RBC 3.48 (L) M/uL HGB 12.5 g/dL HCT 37.9 % MCV 108.8 (H) fl MCH 35.8 (H) pg MCHC 32.9 g/dL RDW SD 59.1 (H) fl PLT 139 (L) K/uL MPV 9.9 fl DIFF TYPE AUTOMATED NEUTROPHILS 67.20 % LYMPHOCYTES 19.48 % MONOCYTES 11.06 % EOSINOPHILS 1.54 % BASOPHILS 0.72 % NEUTROPHILS ABS 4.45 K/uL LYMPHOCYTES ABS 1.29 K/uL MONOCYTES ABS 0.73 K/uL EOSINOPHILS ABS 0.10 K/uL BASOPHILS ABS 0.05 K/uL MORPHOLOGY 2+ Platelet Estimate DECREASED Phosphorus [[id number]] (Abnormal) Collected: 05/27/18424 Specimen: Blood Updated: 05/27/18628 PHOSPHORUS 8.0 (H) mg/dL Basic Metabolic Panel [[id number]] (Abnormal) Collected: 05/27/18424 Specimen: Blood Updated: 05/27/18628 SODIUM 135 mmol/L POTASSIUM 5.9 (H) mmol/L CHLORIDE 96 (L) mmol/L CO2 25 mmol/L ANION GAP AGAP 20 mmol/L GLUCOSE 74 mg/dL BUN 51 (H) mg/dL CREATININE 9.2 (H) mg/dL BUN/CREAT 6 CALCIUM 9.4 mg/dL EGFR 5 (L) mL/min/1.73m2 Magnesium [[id number]] (Abnormal) Collected: 05/27/18424 Specimen: Blood Updated: 05/27/18628 MAGNESIUM 2.7 (H) mg/dL Brain natriuretic peptide [[id number]] (Abnormal) Collected: 03/24/19 0425 Specimen: Blood Updated: 05/27/18 0546 BRAIN NATRIURETIC PEPTIDE 1,153.92 (H) pg/mL Respiratory Filmarray [[id number]] (Abnormal) Collected: 05/26/181805 Specimen: Nasopharynx/Oropharynx Updated: 05/26/182141 ADENOVIRUS Not Detected CORONAVIRUS 229E Not Detected CORONAVIRUS HKU1 Not Detected CORONAVIRUS NL63 Not Detected CORONAVIRUS OC43 Not Detected HUMAN METAPNEUMOVIRUS Not Detected HUMAN RHINO/ENTERO Not Detected INFLUENZA A Not Detected INFLUENZA B Not Detected PARAINFLUENZA 1 Not Detected PARAINFLUENZA 2 Not Detected PARAINFLUENZA 3 Not Detected PARAINFLUENZA 4 Not Detected RESP SYNCYTIAL VIRUS DETECTED (A) BORDETELLA PERTUSSIS Not Detected CHLAMYDIAE PNEUMONIAE Not Detected MYCOPLASMA PNEUMONIAE Not Detected RESP PANEL INTERP Testing performed by Molecular Methodology MRSA by PCR [[id number]] Collected: 05/26/181805 Specimen: Nasopharyngeal from Nares(Nose) Updated: 05/26/182025 SOURCE NARES(NOSE) MRSA PCR NEGATIVE Procalcitonin [[id number]] (Abnormal) Collected: 05/26/181726 Updated: 05/26/18 1839 PROCALCITONIN 0.76 (H) ng/mL Albumin, Body Fluid [[id number]] Collected: 05/26/18 141 Specimen: Body Fluid from Lung, Right Lower Lobe Updated: 05/26/18 172 FLUID ALBUMIN 2.3 g/dL Total Protein, Body Fluid [[id number]] Collected: 05/26/18 141 Specimen: Body Fluid from Lung, Right Lower Lobe Updated: 05/26/18 172 FLUID TOTAL PROTEIN 4.2 g/dL FLUID TP SOURCE PLEURAL FLUID Cell count, Body Fluid [[id number]] Collected: 05/26/18 141 Specimen: Body Fluid from Lung, Right Lower Lobe Updated: 05/26/18 1708 FLUID TYPE PLEURAL FLUID COLOR SAMMIE APPEARANCE CLOUDY RBC'S 3,000 /mm3 TOTAL NUCLEATED CELLS 253 /mm3 NEUTROPHILS 22 % LYMPHOCYTES 8 % MONOCYTES/MACROPHAGES 65 % Mesothelial Cells 5 % CELLS COUNTED 100 pH, Body Fluid [[id number]] Collected: 05/26/18 1412 Specimen: Body Fluid from Lung, Right Lower Lobe Updated: 05/26/18 1508 FLUID PH 7.45 Procalcitonin [[id number]] (Abnormal) Collected: 05/26/181213 Updated: 05/26/18 1330 PROCALCITONIN 0.56 (H) ng/mL Cardiac Panel [[id number]] (Abnormal) Collected: 05/26/181213 Updated: 05/26/18 1312 WBC 5.73 K/uL RBC 3.32 (L) M/uL HGB 12.1 g/dL HCT 36.1 % MCV 108.7 (H) fl MCH 36.3 (H) pg MCHC 33.4 g/dL RDW SD 59.9 (H) fl PLT 151 K/uL MPV 10.1 fl DIFF TYPE AUTOMATED NEUTROPHILS 72.41 % LYMPHOCYTES 19.04 % MONOCYTES 6.42 % EOSINOPHILS 1.13 % BASOPHILS 1.00 % NEUTROPHILS ABS 4.15 K/uL LYMPHOCYTES ABS 1.09 K/uL MONOCYTES ABS 0.37 K/uL EOSINOPHILS ABS 0.06 K/uL BASOPHILS ABS 0.06 K/uL MORPHOLOGY 2+ Platelet Estimate ADEQUATE SODIUM 140 mmol/L POTASSIUM 4.6 mmol/L CHLORIDE 99 mmol/L CO2 27 mmol/L ANION GAP AGAP 19 mmol/L GLUCOSE 85 mg/dL BUN 41 (H) mg/dL CREATININE 7.89 (H) mg/dL BUN/CREAT 5 CALCIUM 9.6 mg/dL TOTAL PROTEIN 7.2 g/dL Albumin 4.3 g/dL GLOBULIN 2.9 g/dL A/G 1.5 TBIL 1.1 mg/dL ALK PHOS 120 (H) U/L AST 82 (H) U/L ALT 64 U/L EGFR 6 (L) mL/min/1.73m2 CPK 291 (H) U/L INR 1.6 APTT 29 seconds MMB 7.8 (H) ng/mL CK-MB Index 2.7 Brain natriuretic peptide [[id number]] (Abnormal) Collected: 05/26/181213 Updated: 05/26/18 1254 BRAIN NATRIURETIC PEPTIDE 1,728.24 (H) pg/mL CBC: Lab Results Component Value Date WBC 6.62 05/27/2018 RBC 3.48 (L) 05/27/2018 HGB 12.5 05/27/2018 HCT 37.9 05/27/2018 MCV 108.8 (H) 05/27/2018 MCH 35.8 (H) 05/27/2018 MCHC 32.9 05/27/2018 RDW 59.1 (H) 05/27/2018 PLT 139 (L) 05/27/2018 MPV 9.9 05/27/2018 DIFFTYPE AUTOMATED 05/27/2018 CMP: Lab Results Component Value Date NA 137 05/28/2018 K 4.2 05/28/2018 CL 96 (L) 05/28/2018 CO2 29 05/28/2018 ANIONGAP 16 05/28/2018 GLUF 113 (H) 05/28/2018 BUN 43 (H) 05/28/2018 CREATININE 8.4 (H) 05/28/2018 BCR 5 05/28/2018 CA 9.0 05/28/2018 PROT 6.5 05/28/2018 ALB 3.0 (L) 05/28/2018 GLOB 3.5 05/28/2018 BILITOT 0.9 05/28/2018 ALP 106 05/28/2018 AST 538 (H) 05/28/2018 ALT 599 (H) 05/28/2018 EGFR 6 (L) 05/28/2018 Magnesium: Lab Results Component Value Date MG 2.7 (H) 05/27/2018 Phosphorus: Lab Results Component Value Date PHOS 8.0 (H) 05/27/2018 PT/INR: Lab Results Component Value Date INR 1.6 05/26/2018 Last 3 Troponin: No results found for: TROPONINI ABG: No results found for: POCPH, POCPCO, POCPO2, POCHCO, POCTCO2, POCBD, BEART, POCSO2, P OCCMT Xr Chest 2 View Result Date: 05/27/2018 CHEST TWO VIEWS CLINICAL INFORMATION: Follow up pneumonia . COMPARISON: CT CHEST WO CONTRAS T (05/26/2018); XR CHEST 2 VIEW FRONTAL AND LATERAL (05/26/2018); XR CHEST 1 VIEW (05/26/2018); FINDINGS: A large right-sided pleural effusion is creating near complete opacification of t he entire right hemithorax with only a small amount of residual aerated lung seen at the rig ht upper lobe. A small left-sided pleural effusion is seen at the posterior costophrenic an gle. The left lung is otherwise well aerated. The heart is normal in size. The pulmonary vascular pattern is normal. Overlying oxygen tubing is seen. The osseous structures are in tact. 1. Large right-sided pleural effusion is causing near complete atelectasis of the entire ri ght lung with only a small aerated portion of right upper lobe remaining. 2. Small left-side d pleural effusion at the posterior costophrenic angle. 3. Findings appear largely unchanged from yesterday. Signed by: Rai Espinoza Sign Date/Time: 05/27/2018 11:20 AM Xr Chest Pa And Lateral Result Date: 05/26/2018 CHEST TWO VIEWS CLINICAL INFORMATION: Post thoracentesis. COMPARISON: XR CHEST 1 VIEW (05/26); XR CHEST 2 Views (05/25/2018); FINDINGS: Large right pleural effusion does not appear significantly changed since most recent comparison study. As seen on the lateral view ther e is wedge like density likely involving superior segment right lower lobe with lucency more inferiorly at the right lung base. Also density potentially representing pleural fluid or consolidation at the right middle lobe over the heart. No pneumothorax. Streaky opacity le ft lower lobe potentially representing atelectasis. Possible trace left pleural effusion. Cardiac and mediastinal silhouettes within normal limits of size. No focal bony lesions. 1. Status post thoracentesis with reported approximately 1 L of fluid removed. There is re sidual pleural effusion which is similar to slightly decreased since the pre thoracentesis s tudy. 2. Wedge like opacity at the superior segment right upper lobe with more lucent area a t the right lung base as seen on the lateral view. This suggests airspace consolidation pote ntially infectious in etiology. 3. No pneumothorax. 4. Streaky left lower lobe opacity most likely representing atelectasis. Signed by: MD Lakhwinder, Florian Sign Date/Time: 05/26/2018 4:[address] Chest Non-con Result Date: 05/26/2018 CT CHEST WITHOUT CONTRAST CLINICAL INFORMATION: Pneumonia. COMPARISON: XR CHEST 2 VIEW FRON VASHTI AND LATERAL (05/26/2018); XR CHEST 2 Views (05/25/2018); PROCEDURE: Axial images through t he chest. Multiplanar reconstructions. At least one of the following CT dose optimization te chniques were used: Automated exposure control; Adjustment of mA and/or kV according to kota ent size; Use of iterative reconstruction technique. FINDINGS: Lungs, Pleura and Airways: La rge right and small left pleural effusion. Near complete collapse of the right lower lobe an d right middle lobe and partial collapse of the right upper lobe. Mosaic pattern of lucency in the lungs. Mediastinum: No significant pericardial, great vessel or esophageal abnormali ty. No mediastinal mass. Lymph Nodes: No adenopathy. Upper Abdomen: No significant abnormali ty in the visualized upper abdomen. BODY WALL Soft Tissues: The soft tissues of the chest wa ll are unremarkable. Bones: No acute fracture or vertebral end plate destruction. No lytic o r blastic lesion. 1. Large right and small left pleural effusions. This results in near complete collapse of the right lower and right middle lobes and partial collapse of the right upper lobe. 2. Mos aic pattern of lucencies in the left lung, which may represent air trapping or emphysema. Si gned by: MD Debbie, El Sign Date/Time: 05/26/2018 4:55 PM X-ray Chest 1 View Result Date: 05/26/2018 This is a non-reportable procedure without a radiologist report and is used for image [employer] only Echo Cardiac Adult Complete Result Date: 05/27/2018 Patient Name: DARA LOUISE Date of : 1995 Performing P hysician: Robel Yusuf MD ____ INDICATIONS SOB CONCLUSIONS 1. Sinus rhythm. 2. A 2-dimensional transthoracic echocardiogram with m-mode, spectral and color flow Doppler was perfomed. 3. This was a technically adequate study. 4. Overall left ventricular systolic function is bebo rely impaired with, an EF between 20 - 25 %. 5. The left ventricle cavity size is normal. 6. There is mild concentric left ventricular hypertrophy. 7. There is severe global hypokinesi s of LV contractility. 8. There is septal flattening in diastole which is consistent with ri ght ventricular volume overload. 9. Pseudonormal LV diastolic filling pattern, consistent wi th elevated LA pressure and moderate dysfunction (Grade II). 10. The right ventricle is mode rately enlarged. 11. The right ventricular systolic function is mildly impaired. 12. The lef t atrial size is normal. 13. The right atrium is moderately enlarged. 14. The aortic valve i s trileaflet. 15. There is mild aortic regurgitation. 16. There is no evidence of aortic konrad nosis. 17. The mitral valve is normal. 18. Pzlp-lk-vimswose eccentric mitral regurgitation i s present. 19. Severe tricuspid regurgitation present. 20. The right ventricular systolic pr essure (pulmonary artery systolic pressure), as measured by Doppler, is 30+15=45 mmHg. Non-c oaptation of the TV leaflets. 21. Mild pulmonic regurgitation. 22. There is no pericardial e ffusion. 23. Pleural effusion present. 24. The IVC is dilated (>2.5cm) and does not collaps e with sniff, consistent with central venous pressures of 15 mmHg. 25. The aortic root, asce nding aorta and aortic arch are normal. 26. No mass visualized 27. No clot visualized FINDIN GS -------- ECG rhythm: Sinus rhythm. Study: A 2-dimensional transthoracic echocardiogram wi m-mode, spectral and color flow Doppler was perfomed. Study: This was a technically adequ ate study. Left Ventricle: Overall left ventricular systolic function is severely impaired w ith, an EF between 20 - 25 %. Left Ventricle: The left ventricle cavity size is normal. Left Ventricle: There is mild concentric left ventricular hypertrophy. Left Ventricle: There is severe global hypokinesis of LV contractility. Left Ventricle: There is septal flattening in diastole which is consistent with right ventricular volume overload. Left Ventricle: Pseudo normal LV diastolic filling pattern, consistent with elevated LA pressure and moderate dysfu nction (Grade II). Right Ventricle: The right ventricle is moderately enlarged. Right Ventri renato: The right ventricular systolic function is mildly impaired. Left Atrium: The left atria l size is normal. Right Atrium: The right atrium is moderately enlarged. Aortic Valve: The a ortic valve is trileaflet. Aortic Valve: There is mild aortic regurgitation. Aortic Valve: T here is no evidence of aortic stenosis. Mitral Valve: The mitral valve is normal. Mitral Kait ve: Urvn-ra-dyfliilx eccentric mitral regurgitation is present. Tricuspid Valve: Severe tric uspid regurgitation present. Tricuspid Valve: The right ventricular systolic pressure (pulmo nary artery systolic pressure), as measured by Doppler, is 30+15=45 mmHg. Non-coaptation of the TV leaflets. Pulmonic Valve: Mild pulmonic regurgitation. Pericardium: There is no peric ardial effusion. Pericardium: Pleural effusion present. IVC/Hepatic Veins: The IVC is dilate d (>2.5cm) and does not collapse with sniff, consistent with central venous pressures of 15 mmHg. Aorta: The aortic root and ascending aorta are normal in size. Mass: No mass visualiz ed Thrombus: No clot visualized MEASUREMENTS RA Area: 28.23 cm2 Ao asc: 2. 62 cm Ao sinus: 2.49 cm IVC: 2.62 cm EDV(Teich): 118.24 ml IVSd: 1.15 cm LVIDd: 4. 99 cm LVPWd: 1.27 cm LVOT Diam: 1.91 cm %FS: 9.56 % EF(Teich): 20.92 % ESV(Teich): 93.49 ml IVSs: 1.28 cm LVIDs: 4.52 cm LVPWs: 1.50 cm SV(Teich): 24.74 ml RA Major: 6.10 cm RVIDd: 4.54 cm LVEF MOD A2C: 18.03 % SV MOD A2C: 26.28 ml LVEF MOD A4C: 22 .87 % SV MOD A4C: 31.28 ml EF Biplane: 18.90 % LVEDV MOD BP: 142.56 ml LVESV MOD BP: 115.61 ml LVEDV MOD A2C: 145.73 ml LVLd A2C: 9.47 cm LVEDV MOD A4C: 136.75 ml LVLd A4 C: 9.26 cm LVESV MOD A2C: 119.44 ml LVLs A2C: 9.18 cm LVESV MOD A4C: 105.47 ml LVLs A4C: 8.58 cm LAESV(A-L): 63.30 ml LAESV Index (A-L): 30.43 ml/m2 LAAs A2C: 20.97 cm2 LAESV A-L A2C: 65.71 ml LALs A2C: 5.68 cm LAAs A4C: 19.94 cm2 LAESV A-L A4C: 60.20 ml LALs A4C: 5.60 cm TAPSE: 1.58 cm HR: 79.62 BPM AV maxP.06 mmHg AV meanP .71 mmHg AV Vmax: 1.23 m/s AV Vmean: 0.92 m/s AV VTI: 20.07 cm TIMA Vmax: 1.74 cm2 AV A (VTI): 1.93 cm2 AVAI Vmax: 0.00 cm2/m2 AVAI (VTI): 0.00 cm2/m2 LVOT maxP.22 mm Hg LVOT meanP.03 mmHg LVSI Dopp: 18.70 ml/m2 LVSV Dopp: 38.91 ml LVOT Vmax: 0.74 m/s LVOT Vmean: 0.45 m/s LVOT VTI: 13.50 cm MV A Shahid: 0.54 m/s MV DecT: 117.65 ms M V E Shahid: 0.80 m/s MV E/A Ratio: 1.46 Septal e': 0.03 m/s Septal E/e': 26.26 Lateral e': 0.04 m/s Lateral E/e': 16.81 RV S': 0.07 m/s TR maxP.08 mmHg TR Vmax: 2.7 4 m/s Director [employer] Database: MOO Authenticated by: Robel Yusuf MD Report Date/Time: 05-27-2018 13: 59:57 1. Sinus rhythm. 2. A 2-dimensional transthoracic echocardiogram with m-mode, spectral and color flow Doppler was perfomed. 3. This was a technically adequate study. 4. Overall left v entricular systolic function is severely impaired with, an EF between 20 - 25 %. 5. The left ventricle cavity size is normal. 6. There is mild concentric left ventricular hypertrophy. 7. There is severe global hypokinesis of LV contractility. 8. There is septal flattening in diastole which is consistent with right ventricular volume overload. 9. Pseudonormal LV mccartney tolic filling pattern, consistent with elevated LA pressure and moderate dysfunction (Grade II). 10. The right ventricle is moderately enlarged. 11. The right ventricular systolic func tion is mildly impaired. 12. The left atrial size is normal. 13. The right atrium is moderat fredi enlarged. 14. The aortic valve is trileaflet. 15. There is mild aortic regurgitation. 16 . There is no evidence of aortic stenosis. 17. The mitral valve is normal. 18. Gore-wm-jliew ate eccentric mitral regurgitation is present. 19. Severe tricuspid regurgitation present. 2 0. The right ventricular systolic pressure (pulmonary artery systolic pressure), as measured by Doppler, is 30+15=45 mmHg. Non-coaptation of the TV leaflets. 21. Mild pulmonic regurgit ation. 22. There is no pericardial effusion. 23. Pleural effusion present. 24. The IVC is di lated (>2.5cm) and does not collapse with sniff, consistent with central venous pressures o f 15 mmHg. 25. The aortic root, ascending aorta and aortic arch are normal. 26. No mass visu alized 27. No clot visualized PROBLEM LIST Active Problems: ESRD on hemodialysis SOB (shortness of breath) Pleural effusion on right Non-compliance Chronic systolic heart failure (HCC) Hyperphosphatemia Hyperkalemia Pulmonary artery hypertension (HCC) Non-rheumatic tricuspid valve insufficiency Non-rheumatic mitral regurgitation Diastolic dysfunction with chronic heart failure (HCC) At high risk for electrolyte imbalance Acute systolic CHF (congestive heart failure) (HCC) Transaminitis ASSESSMENT & PLAN Bilateral pleural effusion right more than left likely secondary to fluid overload from nguyen ng noncompliant with hemodialysis status post right side thoracentesis and fluid transudativ e in nature, repeated chest x-ray showed large right pleural effusion an echo showed ejectio n fraction of 25% which is also contributing to pleural effusions Plan: I discussed the case with Dr. Charis Villasenor pulmonary yesterdayo who recommended u ltrasound-guided thoracentesis againwhich has been ordered and awaiting therapeutic thoracoc entesis again today and patient advised to be compliant with hemodialysis Acute systolic CHF exacerbation likely cause of bilateral pleural effusions as well echocar diogram showed ejection fraction of 25% Plan continue the patient on hemodialysis and right-sided thoracocentesis ordered again Cardiology consulted End stage renal disease on hemodialysis plan nephrology consulted for hemodialysis today hyperkalemia secondary to end-stage renal disease and resolved after giving 1 dose of Tiana exalate Epigastric tenderness likely secondary to gastritis better now and continue on on Protonix as well as Tums Acute bronchitis from RSV on sportive care and discontinue antibiotics Transaminitis :rule out cholelithiasis Plan obtain ultrasound abdomen ' for cholelithiasis consider surgery consult DVT prophylaxis on heparin ANTHONY BELCHER MD 05/28/2018 Anthony Belcher MD - 05/27/2018 1:25 PM PDTFormatting of this note may be different from t he original. Hospitalist Progress Note Dara Louise 23 y.o. [id number] female [facility] Day: LOS: 1 day Patient Summary: 23-year-old female with past medical history of end-stage renal dis ease on hemodialysis Monday, hypertension, anemia of chronic disease who we nt to [facility] with increasing shortness of breath found to have right pleural e ffusion who was transferred to [facility] underwent right-sided diagnostic and therapeu tic thoracocentesis with removal of 1 L of fluid likely transudative, Gram stain and culture s negative so far and also had high volume paracentesis 4 L in the emergency department. Abe hamilton was started on Rocephin and azithromycin for pneumonia. Patient underwent CT scan of the chest which showed complete collapse of the right lower and middle lobe with partial col lapse of right upper lobe. SUBJECTIVE and Events Overnight: Patient seen and examine. No acute over night event. Today when I went to see the patient she was feeling significantly better with decrease in shortness of breath, complaining of dr y cough, no fever no chest pain though she's complaining off 5 out of 10 epigastric abdomina l pain no nausea no vomiting and complaining of constipation last BM was yesterday Scheduled Medications cefTRIAXone 1 g Intravenous Q24H And azithromycin 500 mg Intravenous Q24H calcium carbonate 1,000 mg Oral BID cetirizine 10 mg Oral Daily clopidogrel 75 mg Oral Daily heparin (porcine) 5000 unit/0.5mL 5,000 Units Subcutaneous 3 times per day losartan 50 mg Oral Daily metoprolol 25 mg Oral BID nicotine 1 patch Transdermal Daily pantoprazole 40 mg Oral QAM AC senna-docusate 3 tablet Oral Nightly sevelamer 1,600 mg Oral TID WC Continuous Infusions PRN Medications acetaminophen OR acetaminophen, benzonatate, HYDROcodone-acetaminophen, ondansetron O R ondansetron, polyethylene glycol, zolpidem Allergy: Allergies Allergen Reactions Fentanyl Itching Iodinated Diagnostic Agents Itching Pt c/o face itching during fistulagram Morphine Rash Tape [Adhesive Tape] Rash Use silk tape only OBJECTIVE Vital Signs: BP 131/87 (BP Location: Right upper arm) | Pulse 75 | Temp 98.2 F (36.8 C) (Oral) | Resp 18 | Ht 1.702 m (5' 7") | Wt 96.9 kg (213 lb 10 oz) | SpO2 93% | ? No | BMI 33.46 kg/m Temp: [97.2 F (36.2 C)-98.2 F (36.8 C)] 98.2 F (36.8 C) (05/27 1114) BP: (119-176)/(67-111) 131/87 (05/27 1114) Heart Rate: [75-109] 75 (05/27 1114) Resp: [16-18] 18 (05/27 1114) SpO2: [92 %-97 %] 93 % (05/27 1114) Height: [170.2 cm (5' 7")] 170.2 cm (5' 7") (05/26 1725) Weight: [96.9 kg (213 lb 10 oz)] 96.9 kg (213 lb 10 oz) (05/26 191) I&O Detailed Table: Intake/Output Summary (Last 24 hours) at 05/27/18 1325 Last data filed at 05/27/18 1115 Gross per 24 hour Intake 657 ml Output 0 ml Net 657 ml Hemodynamics Last 24hrs: Examination: Constitutional: Alert and oriented to person, place, and time. Cardiovascular: Normal rate, regular rhythm, normal heart sounds and intact distal pulses. Exam reveals no gallop and no friction rub. No murmur heard. Pulmonary/Chest: Effort normal and breath sounds normal. No stridor. No respiratory distres s. no wheezes. no rales. exhibits no tenderness. Except decreased breath sound bilaterally right lower lobe more than the left Abdominal: Soft. Bowel sounds are normal. exhibits no distension and no mass. There is mild epigastric tenderness. There is no rebound and no guarding. Musculoskeletal: Normal range of motion.exhibits no tenderness. exhibits no edema. Neurological: Alert and oriented to person, place, and time. Has normal reflexes. display s normal reflexes. No cranial nerve deficit. Exhibits normal muscle tone. Coordination norm al. Skin: Skin is warm and dry. No rash noted. No erythema. No pallor. Psychiatric: Has a normal mood and affect. Behavior is normal. Judgment normal. Laboratory: Glucose: Results Procedure Component Value Units Date/Time CBC w/auto diff (reflex to manual) [[id number]] (Abnormal) Collected: 05/27/18424 Specimen: Blood Updated: 05/27/18710 WBC 6.62 K/uL RBC 3.48 (L) M/uL HGB 12.5 g/dL HCT 37.9 % MCV 108.8 (H) fl MCH 35.8 (H) pg MCHC 32.9 g/dL RDW SD 59.1 (H) fl PLT 139 (L) K/uL MPV 9.9 fl DIFF TYPE AUTOMATED NEUTROPHILS 67.20 % LYMPHOCYTES 19.48 % MONOCYTES 11.06 % EOSINOPHILS 1.54 % BASOPHILS 0.72 % NEUTROPHILS ABS 4.45 K/uL LYMPHOCYTES ABS 1.29 K/uL MONOCYTES ABS 0.73 K/uL EOSINOPHILS ABS 0.10 K/uL BASOPHILS ABS 0.05 K/uL MORPHOLOGY 2+ Platelet Estimate DECREASED Phosphorus [[id number]] (Abnormal) Collected: 05/27/18424 Specimen: Blood Updated: 05/27/18628 PHOSPHORUS 8.0 (H) mg/dL Basic Metabolic Panel [[id number]] (Abnormal) Collected: 05/27/18424 Specimen: Blood Updated: 05/27/18628 SODIUM 135 mmol/L POTASSIUM 5.9 (H) mmol/L CHLORIDE 96 (L) mmol/L CO2 25 mmol/L ANION GAP AGAP 20 mmol/L GLUCOSE 74 mg/dL BUN 51 (H) mg/dL CREATININE 9.2 (H) mg/dL BUN/CREAT 6 CALCIUM 9.4 mg/dL EGFR 5 (L) mL/min/1.73m2 Magnesium [[id number]] (Abnormal) Collected: 05/27/18424 Specimen: Blood Updated: 05/27/18628 MAGNESIUM 2.7 (H) mg/dL Brain natriuretic peptide [[id number]] (Abnormal) Collected: 05/27/18424 Specimen: Blood Updated: 05/27/18 0546 BRAIN NATRIURETIC PEPTIDE 1,153.92 (H) pg/mL Respiratory Filmarray [[id number]] (Abnormal) Collected: 05/26/18 180 Specimen: Nasopharynx/Oropharynx Updated: 05/26/18 214 ADENOVIRUS Not Detected CORONAVIRUS 229E Not Detected CORONAVIRUS HKU1 Not Detected CORONAVIRUS NL63 Not Detected CORONAVIRUS OC43 Not Detected HUMAN METAPNEUMOVIRUS Not Detected HUMAN RHINO/ENTERO Not Detected INFLUENZA A Not Detected INFLUENZA B Not Detected PARAINFLUENZA 1 Not Detected PARAINFLUENZA 2 Not Detected PARAINFLUENZA 3 Not Detected PARAINFLUENZA 4 Not Detected RESP SYNCYTIAL VIRUS DETECTED (A) BORDETELLA PERTUSSIS Not Detected CHLAMYDIAE PNEUMONIAE Not Detected MYCOPLASMA PNEUMONIAE Not Detected RESP PANEL INTERP Testing performed by [employer] MRSA by PCR [[id number]] Collected: 05/26/181805 Specimen: Nasopharyngeal from Nares(Nose) Updated: 05/26/182025 SOURCE NARES(NOSE) MRSA PCR NEGATIVE Procalcitonin [[id number]] (Abnormal) Collected: 05/26/18 1727 Updated: 05/26/18 1839 PROCALCITONIN 0.76 (H) ng/mL Culture, Body Fluid [[id number]] Collected: 05/26/18 141 Specimen: Body Fluid from Pleural Fluid Updated: 05/26/18 1811 Pathologist consult [[id number]] Collected: 05/26/18 141 Updated: 05/26/18 1742 Albumin, Body Fluid [[id number]] Collected: 05/26/18 141 Specimen: Body Fluid from Lung, Right Lower Lobe Updated: 05/26/18 1729 FLUID ALBUMIN 2.3 g/dL Total Protein, Body Fluid [[id number]] Collected: 05/26/18 141 Specimen: Body Fluid from Lung, Right Lower Lobe Updated: 05/26/18 1729 FLUID TOTAL PROTEIN 4.2 g/dL FLUID TP SOURCE PLEURAL FLUID Cell count, Body Fluid [[id number]] Collected: 05/26/18 141 Specimen: Body Fluid from Lung, Right Lower Lobe Updated: 05/26/18 1708 FLUID TYPE PLEURAL FLUID COLOR SAMMIE APPEARANCE CLOUDY RBC'S 3,000 /mm3 TOTAL NUCLEATED CELLS 253 /mm3 NEUTROPHILS 22 % LYMPHOCYTES 8 % MONOCYTES/MACROPHAGES 65 % Mesothelial Cells 5 % CELLS COUNTED 100 Culture, Body Fluid [[id number]] Collected: 05/26/18 1513 Specimen: Other from Ascites Fluid Updated: 05/26/18 1631 Specimen Description ASCITES FLUID GRAM STAIN STAIN PERFORMED ON CYTOSPIN GRAM STAIN WBC'S SEEN GRAM STAIN NO EPITHELIAL CELLS SEEN GRAM STAIN NO ORGANISMS SEEN CULTURE PENDING pH, Body Fluid [[id number]] Collected: 05/26/18 1412 Specimen: Body Fluid from Lung, Right Lower Lobe Updated: 05/26/18 1508 FLUID PH 7.45 Procalcitonin [[id number]] (Abnormal) Collected: 05/26/18 1214 Updated: 05/26/18 1330 PROCALCITONIN 0.56 (H) ng/mL Cardiac Panel [[id number]] (Abnormal) Collected: 05/26/18 1214 Updated: 05/26/18 1312 WBC 5.73 K/uL RBC 3.32 (L) M/uL HGB 12.1 g/dL HCT 36.1 % MCV 108.7 (H) fl MCH 36.3 (H) pg MCHC 33.4 g/dL RDW SD 59.9 (H) fl PLT 151 K/uL MPV 10.1 fl DIFF TYPE AUTOMATED NEUTROPHILS 72.41 % LYMPHOCYTES 19.04 % MONOCYTES 6.42 % EOSINOPHILS 1.13 % BASOPHILS 1.00 % NEUTROPHILS ABS 4.15 K/uL LYMPHOCYTES ABS 1.09 K/uL MONOCYTES ABS 0.37 K/uL EOSINOPHILS ABS 0.06 K/uL BASOPHILS ABS 0.06 K/uL MORPHOLOGY 2+ Platelet Estimate ADEQUATE SODIUM 140 mmol/L POTASSIUM 4.6 mmol/L CHLORIDE 99 mmol/L CO2 27 mmol/L ANION GAP AGAP 19 mmol/L GLUCOSE 85 mg/dL BUN 41 (H) mg/dL CREATININE 7.89 (H) mg/dL BUN/CREAT 5 CALCIUM 9.6 mg/dL TOTAL PROTEIN 7.2 g/dL Albumin 4.3 g/dL GLOBULIN 2.9 g/dL A/G 1.5 TBIL 1.1 mg/dL ALK PHOS 120 (H) U/L AST 82 (H) U/L ALT 64 U/L EGFR 6 (L) mL/min/1.73m2 CPK 291 (H) U/L INR 1.6 APTT 29 seconds MMB 7.8 (H) ng/mL CK-MB Index 2.7 Brain natriuretic peptide [[id number]] (Abnormal) Collected: 05/26/18 1214 Updated: 05/26/18 1254 BRAIN NATRIURETIC PEPTIDE 1,728.24 (H) pg/mL CBC: Lab Results Component Value Date WBC 6.62 05/27/2018 RBC 3.48 (L) 05/27/2018 HGB 12.5 05/27/2018 HCT 37.9 05/27/2018 MCV 108.8 (H) 05/27/2018 MCH 35.8 (H) 05/27/2018 MCHC 32.9 05/27/2018 RDW 59.1 (H) 05/27/2018 PLT 139 (L) 05/27/2018 MPV 9.9 05/27/2018 DIFFTYPE AUTOMATED 05/27/2018 CMP: Lab Results Component Value Date NA 135 05/27/2018 K 5.9 (H) 05/27/2018 CL 96 (L) 05/27/2018 CO2 25 05/27/2018 ANIONGAP 20 05/27/2018 GLUF 74 05/27/2018 BUN 51 (H) 05/27/2018 CREATININE 9.2 (H) 05/27/2018 BCR 6 05/27/2018 CA 9.4 05/27/2018 PROT 7.2 05/26/2018 ALB 4.3 05/26/2018 GLOB 2.9 05/26/2018 BILITOT 1.1 05/26/2018 ALP 120 (H) 05/26/2018 AST 82 (H) 05/26/2018 ALT 64 05/26/2018 EGFR 5 (L) 05/27/2018 Magnesium: Lab Results Component Value Date MG 2.7 (H) 05/27/2018 Phosphorus: Lab Results Component Value Date PHOS 8.0 (H) 05/27/2018 PT/INR: Lab Results Component Value Date INR 1.6 05/26/2018 Last 3 Troponin: No results found for: TROPONINI ABG: No results found for: POCPH, POCPCO, POCPO2, POCHCO, POCTCO2, POCBD, BEART, POCSO2, P OCCMT Xr Chest 2 View Result Date: 05/27/2018 CHEST TWO VIEWS CLINICAL INFORMATION: Follow up pneumonia . COMPARISON: CT CHEST WO CONTRAS T (05/26/2018); XR CHEST 2 VIEW FRONTAL AND LATERAL (05/26/2018); XR CHEST 1 VIEW (05/26/2018); FINDINGS: A large right-sided pleural effusion is creating near complete opacification of t he entire right hemithorax with only a small amount of residual aerated lung seen at the rig ht upper lobe. A small left-sided pleural effusion is seen at the posterior costophrenic an gle. The left lung is otherwise well aerated. The heart is normal in size. The pulmonary vascular pattern is normal. Overlying oxygen tubing is seen. The osseous structures are in tact. 1. Large right-sided pleural effusion is causing near complete atelectasis of the entire ri ght lung with only a small aerated portion of right upper lobe remaining. 2. Small left-side d pleural effusion at the posterior costophrenic angle. 3. Findings appear largely unchanged from yesterday. Signed by: Rai Espinoza Sign Date/Time: 05/27/2018 11:20 AM Xr Chest Pa And Lateral Result Date: 05/26/2018 CHEST TWO VIEWS CLINICAL INFORMATION: Post thoracentesis. COMPARISON: XR CHEST 1 VIEW (05/26); XR CHEST 2 Views (05/25/2018); FINDINGS: Large right pleural effusion does not appear significantly changed since most recent comparison study. As seen on the lateral view ther e is wedge like density likely involving superior segment right lower lobe with lucency more inferiorly at the right lung base. Also density potentially representing pleural fluid or consolidation at the right middle lobe over the heart. No pneumothorax. Streaky opacity le ft lower lobe potentially representing atelectasis. Possible trace left pleural effusion. Cardiac and mediastinal silhouettes within normal limits of size. No focal bony lesions. 1. Status post thoracentesis with reported approximately 1 L of fluid removed. There is re sidual pleural effusion which is similar to slightly decreased since the pre thoracentesis s tudy. 2. Wedge like opacity at the superior segment right upper lobe with more lucent area a t the right lung base as seen on the lateral view. This suggests airspace consolidation pote ntially infectious in etiology. 3. No pneumothorax. 4. Streaky left lower lobe opacity most likely representing atelectasis. Signed by: MD Lakhwinder, Florian Sign Date/Time: 05/26/2018 4:[address] Chest Non-con Result Date: 05/26/2018 CT CHEST WITHOUT CONTRAST CLINICAL INFORMATION: Pneumonia. COMPARISON: XR CHEST 2 VIEW FRON VASHTI AND LATERAL (05/26/2018); XR CHEST 2 Views (05/25/2018); PROCEDURE: Axial images through t he chest. Multiplanar reconstructions. At least one of the following CT dose optimization te chniques were used: Automated exposure control; Adjustment of mA and/or kV according to kota ent size; Use of iterative reconstruction technique. FINDINGS: Lungs, Pleura and Airways: La rge right and small left pleural effusion. Near complete collapse of the right lower lobe an d right middle lobe and partial collapse of the right upper lobe. Mosaic pattern of lucency in the lungs. Mediastinum: No significant pericardial, great vessel or esophageal abnormali ty. No mediastinal mass. Lymph Nodes: No adenopathy. Upper Abdomen: No significant abnormali ty in the visualized upper abdomen. BODY WALL Soft Tissues: The soft tissues of the chest wa ll are unremarkable. Bones: No acute fracture or vertebral end plate destruction. No lytic o r blastic lesion. 1. Large right and small left pleural effusions. This results in near complete collapse of the right lower and right middle lobes and partial collapse of the right upper lobe. 2. Mos aic pattern of lucencies in the left lung, which may represent air trapping or emphysema. Si gned by: MD Debbie, El Sign Date/Time: 05/26/2018 4:55 PM X-ray Chest 1 View Result Date: 05/26/2018 This is a non-reportable procedure without a radiologist report and is used for image [employer] only PROBLEM LIST Active Problems: ESRD on hemodialysis SOB (shortness of breath) Pleural effusion on right Non-compliance ASSESSMENT & PLAN Bilateral pleural effusion right more than left likely secondary to fluid overload from nguyen ng noncompliant with hemodialysis status post right side thoracentesis and fluid transudativ e in nature, repeated chest x-ray showed large right pleural effusion Plan: I discussed the case with Dr. Charis Marie pulmonary on-call who recommended ultra sound-guided thoracentesis again tomorrow and patient otherwise to be compliant with hemodia lysis End stage renal disease on hemodialysis plan nephrology consulted who plan to do hemodialysis in the morning hyperkalemia secondary to end-stage renal disease and give 1 dose of Kayexalate Epigastric tenderness likely secondary to gastritis and start the patient on Protonix as we ll as Tums Acute bronchitis from RSV on sportive care and discontinue antibiotics Chronic nausea on Zofran 4 mg every 6 hours DVT prophylaxis on heparin ANTHONY BELCHER MD 05/27/2018 Jae Gutierres, [facility] - 05/26/2018 6:05 PM PDTRenal Dosing Monitoring: S: Renal dose monitoring per protocol. O: HD patient A: No adjustments needed at this time. P: Pharmacy will continue monitoring patient for appropriate dosing based on renal functio n. Pharmacist: Jae Gutierres, PharmD in this encounter Plan of Treatment Not [...] + + + in this encounter Results Comprehensive metabolic panel (06/01/2018 4:43 AM) + + + + + | [...] [address] | | | | [facility], | | | | | [place] [address] | | | + + + + + + + | Specimen | + + | Blood | + + + + + + + | Performing | Address | City/State/Zipcode | Phone Number | | Organization | | | | + + + + + | [facility] | [address] | [place] [address] | [phone] | | LABORATORY | [address] | | | + + + + + CBC W/Auto Diff (Reflex to Manual) (06/01/2018 4:43 AM) + + + + + | [...] performed | | | | | at [facility], [address] | | | | | [facility], | | | | | [place] [address] | | | | |Testing performed at [facility], [address], [place] [address] | | | | | | | | + + + + + + + | Specimen | + + | Blood | + + + + + + + | Performing | Address | City/State/Zipcode | Phone Number | | Organization | | | | + + + + + | [facility] | [address] | [place] [address] | [phone] | | LABORATORY | [address] | | | + + + + + Comprehensive metabolic panel (05/31/2018 5:04 AM) + + + + + | Component | Value | Ref Range | Performed At | + + + + + | SODIUM | 139 | 135 - 145 mmol/L | [facility] | | | | | LABORATORY | + + + + + | POTASSIUM | 4.3 | 3.5 - 4.9 mmol/L | [facility] | | | | | LABORATORY | + + + + + | CHLORIDE | 99 | 99 - 109 mmol/L | [facility] | | | | | LABORATORY | + + + + + | CO2 | 32 | 23 - 32 mmol/L | [facility] | | | | | LABORATORY | + + + + + | ANION GAP AGAP | 12 | 5 - 20 mmol/L | [facility] | | | | | LABORATORY | + + + + + | GLUCOSE | 81 | 65 - 99 mg/dL | [facility] | | | | | LABORATORY | + + + + + | BUN | 19 | 8 - 25 mg/dL | [facility] | | | | | LABORATORY | + + + + + | CREATININE | 5.6 (H) | 0.50 - 1.00 mg/dL | [facility] | | | | | LABORATORY | + + + + + | BUN/CREAT | 3 | | [facility] | | | | | LABORATORY | + + + + + | CALCIUM | 9.9 | 8.5 - 10.5 mg/dL | [facility] | | | | | LABORATORY | + + + + + | TOTAL PROTEIN | 6.6 | 6.3 - 8.2 g/dL | [facility] | | | | | LABORATORY | + + + + + | Albumin | 3.0 (L) | 3.6 - 5.0 g/dL | [facility] | | | | | LABORATORY | + + + + + | GLOBULIN | 3.6 | 1.3 - 4.9 g/dL | [facility] | | | | | LABORATORY | + + + + + | A/G | 0.8 (L) | 1.0 - 2.4 | [facility] | | | | | LABORATORY | + + + + + | TBIL | 0.9 | 0.1 - 1.5 mg/dL | [facility] | | | | | LABORATORY | + + + + + | ALK PHOS | 133 (H) | 35 - 115 U/L | [facility] | | | | | LABORATORY | + + + + + | AST | 134 (H) | 10 - 45 U/L | [facility] | | | | | LABORATORY | + + + + + | ALT | 299 (H) | 10 - 65 U/L | [facility] | | | | | LABORATORY | + + + + + | EGFR | 9 (L)Comment: GFR <60: | >60 mL/min/1.73m2 | [...] | | | | | performed at [facility], [address] | | | | [facility], | | | | | [place] [address] | | | + + + + + + + | Specimen | + + | Blood | + + + + + + + | Performing | Address | City/State/Zipcode | Phone Number | | Organization | | | | + + + + + | [facility] | [address] | [place] [address] | [phone] | | LABORATORY | [address] | | | + + + + + CBC W/Auto Diff (Reflex to Manual) (05/31/2018 5:04 AM) + + + + + | Component | Value | Ref Range | Performed At | + + + + + | WBC | 4.57 | 3.80 - 11.00 K/uL | [facility] | | | | | LABORATORY | + + + + + | RBC | 3.00 (L) | 3.70 - 5.10 M/uL | [facility] | | | | | LABORATORY | + + + + + | HGB | 10.9 (L) | 11.3 - 15.5 g/dL | [facility] | | | | | LABORATORY | + + + + + | HCT | 32.9 (L) | 34.0 - 46.0 % | [facility] | | | | | LABORATORY | + + + + + | MCV | 109.6 (H) | 80.0 - 100.0 fl | [facility] | | | | | LABORATORY | + + + + + | MCH | 36.4 (H) | 27.0 - 34.0 pg | [facility] | | | | | LABORATORY | + + + + + | MCHC | 33.2 | 32.0 - 35.5 g/dL | [facility] | | | | | LABORATORY | + + + + + | RDW SD | 56.4 (H) | 37 - 53 fl | [facility] | | | | | LABORATORY | + + + + + | PLT | 107 (L) | 150 - 400 K/uL | [facility] | | | | | LABORATORY | + + + + + | MPV | 9.3 | fl | [facility] | | | | | LABORATORY | + + + + + | DIFF TYPE | AUTOMATED | | [facility] | | | | | LABORATORY | + + + + + | NEUTROPHILS | 55.65 | % | [facility] | | | | | LABORATORY | + + + + + | LYMPHOCYTES | 19.92 | % | [facility] | | | | | LABORATORY | + + + + + | MONOCYTES | 7.18 | % | [facility] | | | | | LABORATORY | + + + + + | EOSINOPHILS | 16.73 | % | [facility] | | | | | LABORATORY | + + + + + | BASOPHILS | 0.52 | % | [facility] | | | | | LABORATORY | + + + + + | NEUTROPHILS ABS | 2.54 | 1.90 - 7.40 K/uL | [facility] | | | | | LABORATORY | + + + + + | LYMPHOCYTES ABS | 0.91 (L) | 1.00 - 3.90 K/uL | [facility] | | | | | LABORATORY | + + + + + | MONOCYTES ABS | 0.33 | 0.00 - 0.80 K/uL | [facility] | | | | | LABORATORY | + + + + + | EOSINOPHILS ABS | 0.77 (H) | 0.00 - 0.50 K/uL | [facility] | | | | | LABORATORY | + + + + + | BASOPHILS ABS | 0.02 | 0.00 - 0.10 K/uL | [facility] | | | | | LABORATORY | + + + + + | MORPHOLOGY | 2+Comment: | | [facility] | | | MACRO1+ANISONORMAL PLT | | LABORATORY | | | MORPHTesting performed | | | | | at [facility], [address] | | | | [facility], | | | | | [place] [address] | | | | |Testing performed at [facility], [address], [place] [address] | | | | | | | | + + + + + + + | Specimen | + + | Blood | + + + + + + + | Performing | Address | City/State/Zipcode | Phone Number | | Organization | | | | + + + + + | [facility] | [address] | [place] [address] | [phone] | | LABORATORY | [address] | | [...] | | systolic CHF (congestive heart failure) ([facility]) Transaminitis | | | The patient is [...] Anguiano MD | | + + + Comprehensive metabolic panel (05/30/2018 4:18 AM) + + + + + | Component | Value | Ref Range | Performed At | + + + + + | SODIUM | 138 | 135 - 145 mmol/L | [facility] | | | | | LABORATORY | + + + + + | POTASSIUM | 3.8 | 3.5 - 4.9 mmol/L | [facility] | | | | | LABORATORY | + + + + + | CHLORIDE | 97 (L) | 99 - 109 mmol/L | [facility] | | | | | LABORATORY | + + + + + | CO2 | 31 | 23 - 32 mmol/L | [facility] | | | | | LABORATORY | + + + + + | ANION GAP AGAP | 14 | 5 - 20 mmol/L | [facility] | | | | | LABORATORY | + + + + + | GLUCOSE | 107 (H) | 65 - 99 mg/dL | [facility] | | | | | LABORATORY | + + + + + | BUN | 34 (H) | 8 - 25 mg/dL | [facility] | | | | | LABORATORY | + + + + + | CREATININE | 7.8 (H) | 0.50 - 1.00 mg/dL | [facility] | | | | | LABORATORY | + + + + + | BUN/CREAT | 4 | | [facility] | | | | | LABORATORY | + + + + + | CALCIUM | 9.5 | 8.5 - 10.5 mg/dL | [facility] | | | | | LABORATORY | + + + + + | TOTAL PROTEIN | 6.4 | 6.3 - 8.2 g/dL | [facility] | | | | | LABORATORY | + + + + + | Albumin | 2.9 (L) | 3.6 - 5.0 g/dL | [facility] | | | | | LABORATORY | + + + + + | GLOBULIN | 3.5 | 1.3 - 4.9 g/dL | [facility] | | | | | LABORATORY | + + + + + | A/G | 0.8 (L) | 1.0 - 2.4 | [facility] | | | | | LABORATORY | + + + + + | TBIL | 0.8 | 0.1 - 1.5 mg/dL | [facility] | | | | | LABORATORY | + + + + + | ALK PHOS | 112 | 35 - 115 U/L | [facility] | | | | | LABORATORY | + + + + + | AST | 182 (H) | 10 - 45 U/L | [facility] | | | | | LABORATORY | + + + + + | ALT | 375 (H) | 10 - 65 U/L | [...] | | | | | performed at [facility], [address] | | | | | [address], | | | | | [place] [address] | | | + + + + + + + | Specimen | + + | Blood | + + + + + + + | Performing | Address | City/State/Zipcode | Phone Number | | Organization | | | | + + + + + | [facility] | [address] | [place] [address] | [phone] | | LABORATORY | [address] | | | + + + + + CBC W/Auto Diff (Reflex to Manual) (05/30/2018 4:18 AM) + + + + + | Component | Value | Ref Range | Performed At | + + + + + | WBC | 4.80 | 3.80 - 11.00 K/uL | [facility] | | | | | LABORATORY | + + + + + | RBC | 2.91 (L) | 3.70 - 5.10 M/uL | [facility] | | | | | LABORATORY | + + + + + | HGB | 10.7 (L) | 11.3 - 15.5 g/dL | [facility] | | | | | LABORATORY | + + + + + | HCT | 31.7 (L) | 34.0 - 46.0 % | [facility] | | | | | LABORATORY | + + + + + | MCV | 108.9 (H) | 80.0 - 100.0 fl | [facility] | | | | | LABORATORY | + + + + + | MCH | 36.8 (H) | 27.0 - 34.0 pg | [facility] | | | | | [facility] | + + + + + | MCHC | 33.8 | 32.0 - 35.5 g/dL | [facility] | | | | | [facility] | + + + + + | RDW SD | 56.0 (H) | 37 - 53 fl | [facility] | | | | | [facility] | + + + + + | PLT | 118 (L) | 150 - 400 K/uL | [facility] | | | | | [facility] | + + + + + | MPV | 9.9 | fl | [facility] | | | | | [facility] | + + + + + | DIFF TYPE | AUTOMATED | | [facility] | | | | [facility] | + + + + + | NEUTROPHILS | 58.60 | % | [facility] | | | | | [facility] | + + + + + | LYMPHOCYTES | 20.90 | % | [facility] | | | | | [facility] | + + + + + | MONOCYTES | 6.15 | % | [facility] | | | | [facility] | + + + + + | EOSINOPHILS | 13.56 | % | [facility] | | | | | [facility] | + + + + + | BASOPHILS | 0.79 | % | [facility] | | | | | [facility] | + + + + + | NEUTROPHILS ABS | 2.81 | 1.90 - 7.40 K/uL | [facility] | | | | | [facility] | + + + + + | LYMPHOCYTES ABS | 1.00 | 1.00 - 3.90 K/uL | [facility] | | | | | [facility] | + + + + + | MONOCYTES ABS | 0.30 | 0.00 - 0.80 K/uL | [facility] | | | | | [facility] | + + + + + | EOSINOPHILS ABS | 0.65 (H) | 0.00 - 0.50 K/uL | [facility] | | | | | [facility] | + + + + + | BASOPHILS ABS | 0.04 | 0.00 - 0.10 K/uL | [facility] | | | | | [facility] | + + + + + | MORPHOLOGY | 1+Comment: | | [facility] | | | ANISO1+MACRONORMAL PLT | | LABORATORY | | | MORPHTesting performed | | | | | at [facility], [address] | | | | | [email or web address], | | | | | [place] [address] | | | | |Testing performed at [facility], [email or web address], [place] [address] | | | | | | | | + + + + + + + | Specimen | + + | Blood | + + + + + + + | Performing | Address | City/State/Zipcode | Phone Number | | Organization | | | | + + + + + | [facility] | [address] | [place] [address] | [phone] | | LABORATORY | Blvd. | | | + + + + + X-ray chest 1 view (05/29/2018 1:38 PM) + + + | Impressions | [...] | + + + + + | [facility] | [address] | [place] [address] | | + + + + + Cholesterol, body fluid (05/29/2018 12:56 PM) + + + + + | Component | Value | Ref Range | Performed At | + + + + + | FLUID CHOLESTEROL | 56Comment: This is not a | mg/dL | [facility] | | | tool distributor validated | | LABORATORY | | | sample type for this | | | | | method. No reference | | | | | ranges have been | | | | | established.Testing | | | | | performed at [facility], [address] | | | | | [facility], | | | | | [place] [address] | | | + + + + + + + | Specimen | + + | Body Fluid - | | Pleural, Right | + + + + + + + | Performing | Address | City/State/Zipcode | Phone Number | | Organization | | | | + + + + + | [facility] | [address] | [place] [address] | [phone] | | LABORATORY | Blvd. | | | + + + + + Lactate dehydrogenase, body fluid (05/29/2018 12:56 PM) + + + + + | Component | Value | Ref Range | Performed At | + + + + + | FLUID LDH | 151Comment: This is not | U/L | [facility] | | | a tool distributor validated | | LABORATORY | | | sample type for this | | | | | method. No reference | | | | | ranges have been | | | | | established.Testing | | | | | performed at [facility], [address] | | | | | [facility], | | | | | [place] [address] | | | + + + + + + + | Specimen | + + | Body Fluid - | | Pleural, Right | + + + + + + + | Performing | Address | City/State/Zipcode | Phone Number | | Organization | | | | + + + + + | [facility] | [address] | [place] [address] | [phone] | | LABORATORY | [address]vd. | | [...] | + + + + + | [facility] | [address] | [place] [address] | [phone] | | LABORATORY | [address] | | [...] | | space is punctured with an 8-Guamanian thoracentesis catheter. Fluid is | | | aspirated without complication. The patient tolerated the procedure | | | well. No immediate complications. Estimated Blood Loss: Minimal. | | + + + + + | Procedure Note | + + | Sonido Steele In - 05/29/2018 3:42 PM PDT ULTRASOUND [...] the pleural space is punctured with an 8-Guamanian | | thoracentesis catheter. Fluid is aspirated [...] | + + + + + | [facility] | [address] | [place] [address] | | + + + + + APTT (05/29/2018 8:52 AM) + + + + + | Component | Value | Ref Range | Performed At | + + + + + | APTT | 29Comment: Testing | 23 - 32 seconds | [facility] | | | performed at [facility];[address];[place] | | | | | [address] | | | + + + + + + + | Specimen | + + | Blood | + + + + + + + | Performing | Address | City/State/Zipcode | Phone Number | | Organization | | | | + + + + + | [facility] | [address] | [place] [address] | | + + + + + Elizabethime-INR (05/29/2018 8:52 AM) + + + + + | Component | Value | Ref Range | Performed At | + + + + + | INR | 1.5Comment: REFERENCE | | [facility] | | | [...] | | | | | performed at [facility] | | | | | [address];[place], [place] | | | | | [address] | | | + + + + + + + | Specimen | + + | Blood | + + + + + + + | Performing | Address | City/State/Zipcode | Phone Number | | Organization | | | | + + + + + | [facility] | [address] | [place] [address] | | + + + + + Comprehensive metabolic panel (05/29/2018 4:57 AM) + + + + + | Component | Value | Ref Range | Performed At | + + + + + | SODIUM | 139 | 135 - 145 mmol/L | [facility] | | | | | LABORATORY | + + + + + | POTASSIUM | 4.2Comment: SPECIMEN | 3.5 - 4.9 mmol/L | [facility] | | | SLIGHTLY HEMOLYZED | | LABORATORY | + + + + + | CHLORIDE | 98 (L) | 99 - 109 mmol/L | [facility] | | | | | LABORATORY | + + + + + | CO2 | 31 | 23 - 32 mmol/L | [facility] | | | | | LABORATORY | + + + + + | ANION GAP AGAP | 14 | 5 - 20 mmol/L | [facility] | | | | | LABORATORY | + + + + + | GLUCOSE | 94Comment: SPECIMEN | 65 - 99 mg/dL | [facility] | | | SLIGHTLY HEMOLYZED | | LABORATORY | + + + + + | BUN | 25 | 8 - 25 mg/dL | [facility] | | | | | LABORATORY | + + + + + | CREATININE | 6.0 (H)Comment: SPECIMEN | 0.50 - 1.00 mg/dL | [facility] | | | SLIGHTLY HEMOLYZED | | LABORATORY | + + + + + | BUN/CREAT | 4 | | [facility] | | | | | LABORATORY | + + + + + | CALCIUM | 9.5 | 8.5 - 10.5 mg/dL | [facility] | | | | | LABORATORY | + + + + + | TOTAL PROTEIN | 6.7 | 6.3 - 8.2 g/dL | [facility] | | | | | LABORATORY | + + + + + | Albumin | 3.0 (L) | 3.6 - 5.0 g/dL | [facility] | | | | | LABORATORY | + + + + + | GLOBULIN | 3.7 | 1.3 - 4.9 g/dL | [facility] | | | | | LABORATORY | + + + + + | A/G | 0.8 (L) | 1.0 - 2.4 | [facility] | | | | | LABORATORY | + + + + + | TBIL | 0.8Comment: SPECIMEN | 0.1 - 1.5 mg/dL | [facility] | | | SLIGHTLY HEMOLYZED | | LABORATORY | + + + + + | ALK PHOS | 117 (H) | 35 - 115 U/L | [facility] | | | | | LABORATORY | + + + + + | AST | 343 (H)Comment: SPECIMEN | 10 - 45 U/L | [facility] | | | SLIGHTLY HEMOLYZED | | LABORATORY | + + + + + | ALT | 527 (H)Comment: SPECIMEN | 10 - 65 U/L | [facility] | | | SLIGHTLY HEMOLYZED | | LABORATORY | + + + + + | EGFR | 9 (L)Comment: GFR <60: | >60 mL/min/1.73m2 | [...] the | | | | | MDRD IDNC traceable | | | | | equation.Testing | | | | | performed at [facility], [address] | | | | | [facility], | | | | | [place] [address] | | | + + + + + + + | Specimen | + + | Blood | + + + + + + + | Performing | Address | City/State/Zipcode | Phone Number | | Organization | | | | + + + + + | [facility] | [address] | [place] [address] | [phone] | | LABORATORY | [address]vd[address] | | | + + + + + CBC W/Auto Diff (Reflex to Manual) (05/29/2018 4:57 AM) + + + + + | Component | Value | Ref Range | Performed At | + + + + + | WBC | 5.44 | 3.80 - 11.00 K/uL | [facility] | | | | | LABORATORY | + + + + + | RBC | 3.30 (L) | 3.70 - 5.10 M/uL | [facility] | | | | | LABORATORY | + + + + + | HGB | 11.9 | 11.3 - 15.5 g/dL | [facility] | | | | | LABORATORY | + + + + + | HCT | 35.8 | 34.0 - 46.0 % | [facility] | | | | | LABORATORY | + + + + + | MCV | 108.6 (H) | 80.0 - 100.0 fl | [facility] | | | | | LABORATORY | + + + + + | MCH | 36.1 (H) | 27.0 - 34.0 pg | [facility] | | | | | LABORATORY | + + + + + | MCHC | 33.3 | 32.0 - 35.5 g/dL | [facility] | | | | | LABORATORY | + + + + + | RDW SD | 54.7 (H) | 37 - 53 fl | [facility] | | | | | LABORATORY | + + + + + | PLT | 138 (L) | 150 - 400 K/uL | [facility] | | | | | LABORATORY | + + + + + | MPV | 10.4 | fl | [facility] | | | | | LABORATORY | + + + + + | DIFF TYPE | AUTOMATED | | [facility] | | | | | LABORATORY | + + + + + | NEUTROPHILS | 56.93 | % | [facility] | | | | | LABORATORY | + + + + + | LYMPHOCYTES | 24.38 | % | [facility] | | | | | LABORATORY | + + + + + | MONOCYTES | 7.25 | % | [facility] | | | | | LABORATORY | + + + + + | EOSINOPHILS | 10.48 | % | [facility] | | | | | LABORATORY | + + + + + | BASOPHILS | 0.96 | % | [facility] | | | | | LABORATORY | + + + + + | NEUTROPHILS ABS | 3.10 | 1.90 - 7.40 K/uL | [facility] | | | | | LABORATORY | + + + + + | LYMPHOCYTES ABS | 1.33 | 1.00 - 3.90 K/uL | [facility] | | | | | LABORATORY | + + + + + | MONOCYTES ABS | 0.39 | 0.00 - 0.80 K/uL | [facility] | | | | | LABORATORY | + + + + + | EOSINOPHILS ABS | 0.57 (H) | 0.00 - 0.50 K/uL | [facility] | | | | | LABORATORY | + + + + + | BASOPHILS ABS | 0.05 | 0.00 - 0.10 K/uL | [facility] | | | | | LABORATORY | + + + + + | MORPHOLOGY | 2+Comment: | | [facility] | | | MACRO1+ANISONORMAL PLT | | LABORATORY | | | MORPHTesting performed | | | | | at [facility], [address] | | | | | [address], | | | | | [place] [address] | | | | |Testing performed at [facility], [address] [place] [address] | | | | | | | | + + + + + + + | Specimen | + + | Blood | + + + + + + + | Performing | Address | City/State/Zipcode | Phone Number | | Organization | | | | + + + + + | [facility] | [address] | [place] [address] | [phone] | | LABORATORY | [address]vd[address] | | | + + + + + abdomen limited (05/28/2018 7:26 PM) + + [...] ABDOMEN, LIMITED CLINICAL INFORMATION: Abdominal pain. | [facility] | | COMPARISON: IR AV FISTULAGRAM IMAGING [...] | + + + + + | [facility] | [address] | [place] [address] | | + + + + + Troponin I (05/28/2018 1:59 PM) + + + + + | Component | Value | Ref Range | Performed At | + + + + + | TROPONIN I | 0.037Comment: 0.04 | 0.00 - 0.04 ng/mL | [facility] | | | [...] performed at | | | | | [facility];[address] | | | | | [facility];[place] [address] | | | + + + + + + + | Specimen | + + | Blood | + + + + + + + | Performing | Address | City/State/Zipcode | Phone Number | | Organization | | | | + + + + + | [facility] | [address] | [place] [address] | | + + + + + [...] MWF UF as | | | tolerated ESTEFANY as indicated with HD Protein supplements stressed [...] | | | | + + + HIV 1/2 Ab reflex [...] | | | | | performed at [facility], [address] | | | | | [facility], | | | | | [place] [address] | | | + + + + + + + | Specimen | + + | Blood | + + + + + + + | Performing | Address | City/State/Zipcode | Phone Number | | Organization | | | | + + + + + | [facility] | [address] [place] [address] | [place] [address] | [phone] | | LABORATORY | [address]. | | | + + + + + Hepatitis panel,acute (05/28/2018 12:36 [...] performed at | | | | | [facility], [address] [place] [address] | | | | | [place] | | | | | [address] | | | + + + + + + + | Specimen | + + | Blood | + + + + + + + | Performing | Address | City/State/Zipcode | Phone Number | | Organization | | | | + + + + + | [facility] | [address] | [place] [address] | [phone] | | LABORATORY | [address] | | [...] 101 | 99 - 109 mmol/L | [facility] | + + + + + | CO2 | 29 | 23 - 32 mmol/L | [facility] | + + + + + | ANION GAP AGAP | 15 | 5 - 20 mmol/L | [facility] | + + + + + | GLUCOSE | 78 | 65 - 99 mg/dL | [facility] | + + + + + | BUN | 43 (H) | 8 - 25 mg/dL | [facility] | + + + + + | CREATININE | 7.97 (H) | 0.50 - 1.00 mg/dL | [facility] | + + + + + | CALCIUM | 9.1 | 8.5 - 10.5 mg/dL | [facility] | + + + + + | Albumin | 3.6 | 3.6 - 5.0 g/dL | [facility] | + + + + + | PHOSPHORUS | 6.3 (H) | 2.3 - 4.8 mg/dL | [facility] | + + + + + | EGFR | 6 (L)Comment: GFR <60: | >60 mL/min/1.73m2 | [facility] | | | [...] | | | | | performed at [facility];[address] | | | | [address];[place], [place] | | | | | [address] | | | + + + + + + + | Specimen | + + | Blood - Blood | + + + + + + + | Performing | Address | City/State/Zipcode | Phone Number | | Organization | | | | + + + + + | [facility] | [address] | [place] [address] | | + + + + + EKG STANDARD 12 LEAD (05/28/2018 11:58 AM) + + + + + | Component | Value | Ref Range | Performed At | + + + + + | Ventricular Rate | 75 | BPM | [facility] [...] + + + + | Calculated P Dudley | 24 | degrees | [facility] | + + + + + | Calculated R Dudley | 24 | degrees | [facility] | + + + + + | Calculated T Dudley | 103 | degrees | [facility] | + + + + + | Diagnosis | Normal sinus rhythmPoor | | [facility] | | | R - progressionAbnormal [...] | + + + + + | [facility] | [address] | [place] [address] | | + + + + + hCG, serum, qualitative (05/28/2018 9:23 AM) + + + + + | Component | Value | Ref Range | Performed At | + + + + + | TEST,SERUM | NEGATIVEComment: Testing | NEGATIVE | [facility] | | | performed at [facility], [address] | | LABORATORY | | | [address], | | | | | [place] [address] | | | + + + + + + + | Specimen | + + | Blood | + + + + + + + | Performing | Address | City/State/Zipcode | Phone Number | | Organization | | | | + + + + + | [facility] | [address] | [place] [address] | [phone] | | LABORATORY | [address]vd[address] | | | + + + + + C-reactive protein (05/28/2018 9:23 AM) + + + + + | Component | Value | Ref Range | Performed At | + + + + + | CRP | 5.1 (H)Comment: Testing | <0.5 mg/dL | [facility] | | | performed at [facility], [address] | | LABORATORY | | | [facility], | | | | | [place] [address] | | | + + + + + + + | Specimen | + + | Blood | + + + + + + + | Performing | Address | City/State/Zipcode | Phone Number | | Organization | | | | + + + + + | [facility] | [address] | [place] [address] | [phone] | | LABORATORY | [address]vd[address] | | | + + + + + Sedimentation rate, automated (05/28/2018 9:23 AM) + + + + + | Component | Value | Ref Range | Performed At | + + + + + | ESR | 2Comment: Testing | 0 - 20 mm/Hr | [facility] | | | performed at [facility], [address] | | LABORATORY | | | [facility] [address], | | | | | [place] [address] | | | + + + + + + + | Specimen | + + | Blood | + + + + + + + | Performing | Address | City/State/Zipcode | Phone Number | | Organization | | | | + + + + + | [facility] | [address] | [place] [address] | [phone] | | LABORATORY | [address]vd[address] | | | + + + + + TSH (05/28/2018 9:23 AM) + + + + + | Component | Value | Ref Range | Performed At | + + + + + | TSH | 1.270Comment: Testing | 0.450 - 5.100 uIU/mL | [facility] | | | performed at [facility], [address] | | LABORATORY | | | [facility] [address], | | | | | [place] [address] | | | + + + + + + + | Specimen | + + | Blood | + + + + + + + | Performing | Address | City/State/Zipcode | Phone Number | | Organization | | | | + + + + + | [facility] | [address] | [place] [address] | [phone] | | LABORATORY | [address] | | | + + + + + Troponin I (05/28/2018 9:23 AM) + + + + + | Component | Value | Ref Range | Performed At | + + + + + | TROPONIN I | 0.034Comment: 0.04 | 0.00 - 0.04 ng/mL | [facility] | | | [...] performed at | | | | | [facility];[address] [place] [address] | | | | | [facility];[place] [address] | | | + + + + + + + | Specimen | + + | Blood | + + + + + + + | Performing | Address | City/State/Zipcode | Phone Number | | Organization | | | | + + + + + | [facility] | [address] | [place] [address] | | + + + + + Comprehensive metabolic panel (05/28/2018 9:23 AM) + + + + + | Component | Value | Ref Range | Performed At | + + + + + | SODIUM | 137 | 135 - 145 mmol/L | [facility] | | | | | LABORATORY | + + + + + | POTASSIUM | 4.2 | 3.5 - 4.9 mmol/L | [facility] [...] + + | ANION GAP AGAP | 16 | 5 - 20 mmol/L | [facility] | | | | | LABORATORY | + + + + + | GLUCOSE | 113 (H) | 65 - 99 mg/dL | [facility] | | | | | LABORATORY | + + + + + | BUN | 43 (H) | 8 - 25 mg/dL | [facility] | | | | | LABORATORY | + + + + + | CREATININE | 8.4 (H) | 0.50 - 1.00 mg/dL | [facility] | | | | | LABORATORY | + + + + + | BUN/CREAT | 5 | | [facility] | | | | | LABORATORY | + + + + + | CALCIUM | 9.0 | 8.5 - 10.5 mg/dL | [facility] [...] + + + + | TBIL | 0.9 | 0.1 - 1.5 mg/dL | [facility] | | | | | LABORATORY | + + + + + | ALK PHOS | 106 | 35 - 115 U/L | [facility] | | | | | LABORATORY | + + + + + | AST | 538 (H) | 10 - 45 U/L | [facility] | | | | | LABORATORY | + + + + + | ALT | 599 (H) | 10 - 65 U/L | [...] the | | | | | MDRD IDNC traceable | | | | | equation.Testing | | | | | performed at [facility], [address] | | | | | [facility], | | | | | [place] [address] | | | + + + + + + + | Specimen | + + | Blood | + + + + + + + | Performing | Address | City/State/Zipcode | Phone Number | | Organization | | | | + + + + + | [facility] | [address] | [place] [address] | [phone] | | LABORATORY | [address]vd[address] | | | + + + + + CBC W/Auto Diff (Reflex to Manual) (05/28/2018 9:23 AM) + + + + + | Component | Value | Ref Range | Performed At | + + + + + | WBC | 5.10 | 3.80 - 11.00 K/uL | [facility] | | | | | LABORATORY | + + + + + | RBC | 3.25 (L) | 3.70 - 5.10 M/uL | [facility] | | | | | LABORATORY | + + + + + | HGB | 11.9 | 11.3 - 15.5 g/dL | [facility] | | | | | LABORATORY | + + + + + | HCT | 35.5 | 34.0 - 46.0 % | [facility] | | | | | LABORATORY | + + + + + | MCV | 109.1 (H) | 80.0 - 100.0 fl | [facility] | | | | | LABORATORY | + + + + + | MCH | 36.6 (H) | 27.0 - 34.0 pg | [facility] | | | | | LABORATORY | + + + + + | MCHC | 33.5 | 32.0 - 35.5 g/dL | [facility] | | | | | LABORATORY | + + + + + | RDW SD | 56.9 (H) | 37 - 53 fl | [facility] | | | | | LABORATORY | + + + + + | PLT | 142 (L) | 150 - 400 K/uL | [facility] | | | | | LABORATORY | + + + + + | MPV | 10.6 | fl | [facility] | | | | | LABORATORY | + + + + + | DIFF TYPE | AUTOMATED | | [facility] | | | | | LABORATORY | + + + + + | NEUTROPHILS | 59.97 | % | [facility] | | | | | LABORATORY | + + + + + | LYMPHOCYTES | 26.66 | % | [facility] | | | | | LABORATORY | + + + + + | MONOCYTES | 6.53 | % | [facility] | | | | | LABORATORY | + + + + + | EOSINOPHILS | 5.86 | % | [facility] | | | | | LABORATORY | + + + + + | BASOPHILS | 0.98 | % | [facility] | | | | | LABORATORY | + + + + + | NEUTROPHILS ABS | 3.06 | 1.90 - 7.40 K/uL | [facility] | | | | | LABORATORY | + + + + + | LYMPHOCYTES ABS | 1.36 | 1.00 - 3.90 K/uL | [facility] | | | | | LABORATORY | + + + + + | MONOCYTES ABS | 0.33 | 0.00 - 0.80 K/uL | [facility] | | | | | LABORATORY | + + + + + | EOSINOPHILS ABS | 0.30 | 0.00 - 0.50 K/uL | [facility] | | | | | LABORATORY | + + + + + | BASOPHILS ABS | 0.05 | 0.00 - 0.10 K/uL | [facility] | | | | | LABORATORY | + + + + + | MORPHOLOGY | 1+Comment: | | [facility] | | | ANISO2+MACRONORMAL PLT | | LABORATORY | | | MORPHTesting performed | | | | | at [facility], [address] | | | | | [facility], | | | | | [place] [address] | | | | |Testing performed at [facility], [address] [facility], [place] [address] | | | | | | | | + + + + + + + | Specimen | + + | Blood | + + + + + + + | Performing | Address | City/State/Zipcode | Phone Number | | Organization | | | | + + + + + | [facility] | [address] | [place] [address] | [phone] | | LABORATORY | [address]vd[address] | | | + + + + + Pathology cytology - fluid (05/28/2018 8:00 AM) + + | Specimen | + + | Body Fluid | + + + + + | Narrative | Performed At | + + + | ORDERING PHYSICIAN: Maria Luisa ALMEIDA, Aneudy Briggs PATIENT NAME: | MOLLY | | DARA LOUISE GENDER: Alysia : [...] PERFORMING LABORATORY: Technical preparation was performed by [facility] | | | [place], [address] [place] [address] | | | (Enlisted Advisor: Matt Claudio D.O.; CLIA#: [id number]). | | | Professional interpretation was performed by [email or web address], | | | [address] [address] | | | (Enlisted Advisor: Daniel Larson M.D.; CLIA#: [id number]).6 | | | Diagnostician: Marie BROOKS ([facility]) [employer] | | | Diagnostician: Anahy Da Silva [...] | [address] | [place] [address] | [phone] | | LABORATORY | Blvd. | | [...] performed at | | | | | [facility], [address] [place] [address] | | | | | [place] | | | | | [address] | | | + + + + + + + + + + | Performing | Address | City/State/Zipcode | Phone Number | | Organization | | | | + + + + + | [facility] | [address] | [place] [address] | [phone] | | LABORATORY | [address] | | [...] valve is normal. 18. | | | Yowh-be-bgxfmtlu eccentric mitral regurgitation is present. 19. | [...] DARA LOUISE Date of : 1995 | [facility] | | Performing Physician: Robel De [...] valve is normal. 18. | | | Ayrf-tv-goxiqczs eccentric mitral regurgitation is present. 19. | [...] is | | | normal. Mitral Valve: Oovf-ii-rlpdkmpz eccentric mitral | | | regurgitation is [...] TR Vmax: 2.74 m/s | | | Director Oracle Database: MOO Authenticated by: Robel Yusuf MD Report | | | Date/Time: 05-27-2018 13:59:57 | | + + + + + | Procedure Note | + + | Sonido Steele In - 05/27/2018 2:00 PM PDT Patient Name: Anders LOUISE of | | : 1995Accession: [id number] Physician: Robel Yusuf | | MD INDICATIONS [...] aortic stenosis.17. The mitral valve is normal.18. Fzwb-yx-vcavpvcs | | eccentric mitral regurgitation is present.19. [...] | | arch are normal.26. No mass qujtuwdmdj55. No clot visualizedFINDINGS--------ECG rhythm: | | Sinus [...] The mitral valve is normal. Mitral Valve: Brlz-kq-qrfgyken eccentric mitral | | regurgitation is present.Tricuspid [...] (A-L): 30.43 | | ml/m2LAAs A2C: 20.97 lb1QHSLF A-L A2C: 65.71 mlLALs A2C: 5.68 cmLAAs A4C: 19.94 | | su9LMUPV A-L A4C: 60.20 mlLALs A4C: 5.60 cmTAPSE: 1.58 cmHR: 79.62 BPMAV maxPG: | | 6.06 mmHgAV meanP.71 mmHgAV Vmax: 1.23 m/Elizabeth Vmean: 0.92 m/Elizabeth VTI: 20.07 | | cmAVA Vmax: 1.74 cm2AVA (VTI): 1.93 fc2QHQB Vmax: 0.00 cm2/m2AVAI (VTI): 0.00 | | [...] The mitral valve is | | normal.18. Byaj-dc-tyfrodxa eccentric mitral regurgitation is present.19. Severe | [...] and aortic arch are normal.26. No mass awqupvwmlc56. No clot visualized | |LVIDd: 4.99 cm [...] |TR Vmax: 2.74 m/s | | | |Director Oracle Database: MW | |Authenticated by: Robel Yusuf MD [...] The mitral valve is normal. | |18. Ibua-gv-brhaiupb eccentric mitral regurgitation is present. | |19. [...] | + + + + + | [facility] | [address] | [place] [address] | | + + + + + XR chest 2 view (05/27/2018 11:02 AM) + + + | Impressions | Performed At | + + + | 1. Large right-sided pleural effusion is causing near complete | [facility] | | atelectasis of the entire right [...] CLINICAL INFORMATION: Follow up pneumonia . | [facility] | | COMPARISON: CT CHEST WO CONTRAST [...] + | Cedric, Rad Results In - 05/27/2018 11:23 AM PDT [...] | + + + + + | [facility] | [address] | [place] [address] | | + + + + + Brain natriuretic peptide (05/27/2018 4:25 AM) + + + + + | Component | Value | Ref Range | Performed At | + + + + + | BRAIN NATRIURETIC | 1,153.92 (H)Comment: | 0 - 100 pg/mL | [facility] | | PEPTIDE | Testing performed at | | | | | [facility];[address] | | | | | [address];[place] [address] | | | + + + + + + + | Specimen | + + | Blood | + + + + + + + | Performing | Address | City/State/Zipcode | Phone Number | | Organization | | | | + + + + + | [facility] | [address] | [place] [address] | | + + + + + Phosphorus (05/27/2018 4:25 AM) + + + + + | Component | Value | Ref Range | Performed At | + + + + + | PHOSPHORUS | 8.0 (H)Comment: Testing | 2.3 - 4.8 mg/dL | [facility] | | | performed at [facility], [address] | | LABORATORY | | | [address], | | | | | [place] [address] | | | + + + + + + + | Specimen | + + | Blood | + + + + + + + | Performing | Address | City/State/Zipcode | Phone Number | | Organization | | | | + + + + + | [facility] | [address] | [place] [address] | [phone] | | LABORATORY | [place] | | | + + + + + Magnesium (05/27/2018 4:25 AM) + + + + + | Component | Value | Ref Range | Performed At | + + + + + | MAGNESIUM | 2.7 (H)Comment: Testing | 1.7 - 2.4 mg/dL | [facility] | | | performed at [facility], [address] | | LABORATORY | | | [address], | | | | | [place] [address] | | | + + + + + + + | Specimen | + + | Blood | + + + + + + + | Performing | Address | City/State/Zipcode | Phone Number | | Organization | | | | + + + + + | [facility] | [address] | [place] [address] | [phone] | | LABORATORY | [address] | | [...] (H) | 0.50 - 1.00 mg/dL | [facility] | | | | | LABORATORY | + + + + + | BUN/CREAT | 6 | | [facility] | | | | | LABORATORY | + + + + + | CALCIUM | 9.4 | 8.5 - 10.5 mg/dL | [facility] | | | | | LABORATORY | + + + + + | EGFR | 5 (L)Comment: GFR <60: | >60 mL/min/1.73m2 | [facility] | | | CHRONIC KIDNEY DISEASE, | [...] | | | | | performed at [facility], [address] | | | | | [facility], | | | | | [place] [address] | | | + + + + + + + | Specimen | + + | Blood | + + + + + + + | Performing | Address | City/State/Zipcode | Phone Number | | Organization | | | | + + + + + | [facility] | [address] | [place] [address] | [phone] | | LABORATORY | [address] | | | + + + + + CBC w/auto diff (reflex to manual) (05/27/2018 4:25 AM) + + + + + | Component | Value | Ref Range | Performed At | + + + + + | WBC | 6.62 | 3.80 - 11.00 K/uL | [facility] | + + + + + | RBC | 3.48 (L) | 3.70 - 5.10 M/uL | [facility] | + + + + + | HGB | 12.5 | 11.3 - 15.5 g/dL | [facility] | + + + + + | HCT | 37.9 | 34.0 - 46.0 % | [facility] | + + + + + | MCV | 108.8 (H) | 80.0 - 100.0 fl | [facility] | + + + + + | MCH | 35.8 (H) | 27.0 - 34.0 pg | [facility] | + + + + + | MCHC | 32.9 | 32.0 - 35.5 g/dL | [facility] | + + + + + | RDW SD | 59.1 (H) | 37 - 53 fl | [facility] | + + + + + | PLT | 139 (L) | 150 - 400 K/uL | [facility] | + + + + + | MPV | 9.9 | fl | [facility] | + + + + + | DIFF TYPE | AUTOMATED | | [facility] | + + + + + | NEUTROPHILS | 67.20 | % | [facility] | + + + + + | LYMPHOCYTES | 19.48 | % | [facility] | + + + + + | MONOCYTES | 11.06 | % | [facility] | + + + + + | EOSINOPHILS | 1.54 | % | [facility] | + + + + + | BASOPHILS | 0.72 | % | [facility] | + + + + + | NEUTROPHILS ABS | 4.45 | 1.90 - 7.40 K/uL | [facility] | + + + + + | LYMPHOCYTES ABS | 1.29 | 1.00 - 3.90 K/uL | [facility] | + + + + + | MONOCYTES ABS | 0.73 | 0.00 - 0.80 K/uL | [facility] | + + + + + | EOSINOPHILS ABS | 0.10 | 0.00 - 0.50 K/uL | [facility] | + + + + + | BASOPHILS ABS | 0.05 | 0.00 - 0.10 K/uL | [facility] | + + + + + | MORPHOLOGY | 2+ | | [facility] | | | Comment: | | | | | MACRO | | | | | NORMAL PLT MORPH | | | | | | | | + + + + + | Platelet Estimate | DECREASEDComment: | | [facility] | | | Testing performed at | | | | | [facility];[address] [place] [address] | | | | | Blvd;[place] [address] | | | + + + + + + + | Specimen | + + | Blood | + + + + + + + | Performing | Address | City/State/Zipcode | Phone Number | | Organization | | | | + + + + + | [facility] | [address] | [place] [address] | | + + + + + MRSA by PCR (05/26/2018 6:06 PM) + + + + + | Component | Value | Ref Range | Performed At | + + + + + | SOURCE | NARES(NOSE) | | [facility] | + + + + + | MRSA PCR | NEGATIVEComment: Testing | NEGATIVE | [facility] | | | performed at [facility];[address] | | | | | [address];[place] | | | | | [address] | | | + + + + + + + | Specimen | + + | Nasopharyngeal - | | Nares(Nose) | + + + + + + + | Performing | Address | City/State/Zipcode | Phone Number | | Organization | | | | + + + + + | [facility] | [address] | [place] [address] | | + + + + + [...] at | | | | | [facility], [address] [place] [address] | | | | | [place], [place], [place] | | | | | [address] | | | + + + + + + + | Specimen | + + | Nasopharynx/Orophary | | nx | + + + + + + + | Performing | Address | City/State/Zipcode | Phone Number | | Organization | | | | + + + + + | [facility] | [address] | [place] [address] | [phone] | | LABORATORY | [address] | | | + + + + + PROCALCITONIN (05/26/2018 5:27 PM) + + + + + | Component | Value | Ref Range | Performed At | + + + + + | PROCALCITONIN | 0.76 (H)Comment: | <0.5 ng/mL | [facility] | | | INTERPRETIVE [...] performed | | | | | at [facility];[address] [facility] | | | | | [place] [address] | | | + + + + + + + + + + | Performing | Address | City/State/Zipcode | Phone Number | | Organization | | | | + + + + + | [facility] | [address] | [place] [address] | | + + + + + [...] | emphysema. Signed by: MD Debbie, [place] Date/Time: 05/26/2018 4:55 | | | PM [...] | + + + + + | [facility] | [address] | [place] [address] | | + + + + + XR chest PA and lateral (05/26/2018 3:59 PM) + + + | Impressions | Performed At | + + + | 1. Status post thoracentesis with reported approximately 1 L of | [facility] | | fluid removed. There is residual pleural effusion which is similar | RADIOLOGY | | to slightly decreased since the pre thoracentesis study. 2. Wedge | | | like opacity at the superior segment right upper lobe with more | | | lucent area at the right lung base as seen on the lateral view. This | | | suggests airspace consolidation potentially infectious in etiology. | | | 3. No pneumothorax. 4. Streaky left lower lobe opacity most likely | | | representing atelectasis. Signed by: MD Lakhwinder, Florian Sign | | | Date/Time: 05/26/2018 4:19 PM | | + + + + + + | Narrative | Performed At | + + + | CHEST TWO VIEWS CLINICAL INFORMATION: Post thoracentesis. | [facility] | | COMPARISON: XR CHEST 1 VIEW (05/26/2018); XR CHEST 2 Views | RADIOLOGY | | (05/25/2018); FINDINGS: Large right pleural effusion does not appear | | | significantly changed since most recent comparison study. As seen | | | on the lateral view there is wedge like density likely involving | | | superior segment right lower lobe with lucency more inferiorly at the | | | right lung base. Also density potentially representing pleural | | | fluid or consolidation at the right middle lobe over the heart. No | | | pneumothorax. Streaky opacity left lower lobe potentially | | | representing atelectasis. Possible trace left pleural | | | effusion. Cardiac and mediastinal silhouettes within normal limits | | | of size. No focal bony lesions. | | + + + + + | Procedure Note | + + | Cedric, Rad Results In - 05/26/2018 4:22 PM PDT CHEST TWO VIEWS | | CLINICAL INFORMATION: | | Post thoracentesis. | | COMPARISON: | | XR CHEST 1 VIEW (05/26/2018); XR CHEST 2 Views (05/25/2018); | | FINDINGS: | | Large right pleural effusion does not appear significantly changed | | since most recent comparison study. As seen on the lateral view there | | is wedge like density likely involving superior segment right lower | | lobe with lucency more inferiorly at the right lung base. Also density | | potentially representing pleural fluid or consolidation at the right | | middle lobe over the heart. No pneumothorax. Streaky opacity left | | lower lobe potentially representing atelectasis. Possible trace left | | pleural effusion. Cardiac and mediastinal silhouettes within normal | | limits of size. No focal bony lesions. | | IMPRESSION: | | 1. Status post thoracentesis with reported approximately 1 L of fluid | | removed. There is residual pleural effusion which is similar to | | slightly decreased since the pre thoracentesis study. | | 2. Wedge like opacity at the superior segment right upper lobe with | | more lucent area at the right lung base as seen on the lateral view. | | This suggests airspace consolidation potentially infectious in etiology. | | 3. No pneumothorax. | | 4. Streaky left lower lobe opacity most likely representing atelectasis. | | Signed by: MD Keane David | | Sign Date/Time: 05/26/2018 4:19 PM | + + + + + + + | Performing | Address | City/State/Zipcode | Phone Number | | Organization | | | | + + + + + | [facility] | [address] | [place] [address] | | + + + + + Culture, Body Fluid (05/26/2018 3:13 PM) + + + + + | Component | Value | Ref Range | Performed At | + + + + + | Specimen Description | ASCITES FLUID | | [facility] | | | | | LABORATORY | + + + + + | GRAM STAIN | STAIN PERFORMED ON | | [facility] | | | CYTOSPIN [...] | [address] | [place] [address] | [phone] | | LABORATORY | [place]. | | | + + + + + | [facility] | [address] | [place] [address] | | + + + + + Pathologist consult (05/26/2018 2:12 PM) + + + + + | Component | Value | Ref Range | Performed At | + + + + + | Pathologist Consult | Comment: Review of | | [facility] | | | pleural [...] performed | | | | | at [facility];[address] | | | | | [place] [address] | | | + + + + + + + + + + | Performing | Address | City/State/Zipcode | Phone Number | | Organization | | | | + + + + + | [facility] | [address] | [place] [address] | | + + + + + Total Protein, Body Fluid (05/26/2018 2:12 PM) + + + + + | Component | Value | Ref Range | Performed At | + + + + + | FLUID TOTAL PROTEIN | 4.2Comment: This is not | g/dL | [facility] | | | a tool distributor validated | | LABORATORY | | | sample type for this | | | | | method. No reference | | | | | ranges have been | | | | | established.Testing | | | | | performed at [facility], [address] | | | | | [address], | | | | | [place] [address] | | | + + + + + | FLUID TP SOURCE | PLEURAL FLUIDComment: | | [facility] | | | Testing performed at | | | | | [facility];[address] | | | | | [place] [address] | | | + + + + + + + | Specimen | + + | Body Fluid - Lung, | | Right Lower Lobe | + + + + + + + | Performing | Address | City/State/Zipcode | Phone Number | | Organization | | | | + + + + + | [facility] | [address] | [place] [address] | | + + + + + | [facility] | [address] | [place] [address] | [phone] | | LABORATORY | [place]. | | | + + + + + Albumin, Body Fluid (05/26/2018 2:12 PM) + + + + + | Component | Value | Ref Range | Performed At | + + + + + | FLUID ALBUMIN | 2.3Comment: This is not | g/dL | [facility] | | | a tool distributor validated | | LABORATORY | | | sample type for this | | | | | method. No reference | | | | | ranges have been | | | | | established.Testing | | | | | performed at [facility], [address] | | | | | [facility], | | | | | [place] [address] | | | + + + + + + + | Specimen | + + | Body Fluid - Lung, | | Right Lower Lobe | + + + + + + + | Performing | Address | City/State/Zipcode | Phone Number | | Organization | | | | + + + + + | [facility] | [address] | [place] [address] | [phone] | | LABORATORY | [address] | | | + + + + + pH, Body Fluid (05/26/2018 2:12 PM) + + + + + | Component | Value | Ref Range | Performed At | + + + + + | FLUID PH | 7.45Comment: Testing | | [facility] | | | performed at [facility];[address];[place] | | | | | [address] | | | + + + + + + + | Specimen | + + | Body Fluid - Lung, | | Right Lower Lobe | + + + + + + + | Performing | Address | City/State/Zipcode | Phone Number | | Organization | | | | + + + + + | [facility] | [address] | [place] [address] | | + + + + + Culture, Body Fluid (05/26/2018 2:12 PM) + + + + + | Component | Value | Ref Range | Performed At | + + + + + | Specimen Description | PLEURAL FLUID | | [facility] | | | | | LABORATORY | + + + + + | GRAM STAIN | WBC'S SEEN | | [facility] | | | | | LABORATORY | + + + + + | GRAM STAIN | NO ORGANISMS SEEN | | [facility] | | | | | LABORATORY | + + + + + | GRAM STAIN | STAIN PERFORMED ON | | [facility] | | | CYTOSPIN | | LABORATORY | + + + + + | CULTURE | NO GROWTH 4 DAYS | | [facility] | | | | | LABORATORY | + + + + + + + | Specimen | + + | Body Fluid - Pleural | | Fluid | + + + + + + + | Performing | Address | City/State/Zipcode | Phone Number | | Organization | | | | + + + + + | [facility] | [address] | [place] [address] | [phone] | | LABORATORY | [address] | | | + + + + + Cell count, Body Fluid (05/26/2018 2:12 PM) + + + + + | Component | Value | Ref Range | Performed At | + + + + + | FLUID TYPE | PLEURAL FLUID | | [facility] | + + + + + | COLOR | SAMMIE | | [facility] | + + + + + | APPEARANCE | CLOUDY | | [facility] | + + + + + | RBC'S | 3,000Comment: CORRECTED | /mm3 | [facility] | | | RESULTS CALLED TO | | | | | MARIA LUISA IN ED AT 1705 | | | | | BY LGJCORRECTED ON 05/26 | | | | | AT 1702: PREVIOUSLY | | | | | REPORTED <[id number] | | | + + + + + | TOTAL NUCLEATED | 253Comment: CORRECTED | /mm3 | [facility] | | CELLS | RESULTS CALLED TO | | | | | MARIA LUISA IN ED AT 1705 | | | | | BY LGJCORRECTED ON 05/26 | | | | | AT 1702: PREVIOUSLY | | | | | REPORTED 374 | | | + + + + + | NEUTROPHILS | 22 | % | [facility] | + + + + + | LYMPHOCYTES | 8 | % | [facility] | + + + + + | MONOCYTES/MACROPHAGE | 65 | % | [facility] | | S | | | | + + + + + | Mesothelial Cells | 5 | % | [facility] | + + + + + | CELLS COUNTED | 100Comment: Testing | | [facility] | | | performed at [facility];[address] | | | | | [address];[place] | | | | | [address] | | | + + + + + + + | Specimen | + + | Body Fluid - Lung, | | Right Lower Lobe | + + + + + + + | Performing | Address | City/State/Zipcode | Phone Number | | Organization | | | | + + + + + | [facility] | [address] | [place] [address] | | + + + + + PROCALCITONIN (05/26/2018 12:14 PM) + + + + + | Component | Value | Ref Range | Performed At | + + + + + | PROCALCITONIN | 0.56 (H)Comment: | <0.5 ng/mL | [facility] | | | INTERPRETIVE [...] performed | | | | | at [facility];[address] [place] [address] | | | | | [facility];[place] [address] | | | + + + + + + + + + + | Performing | Address | City/State/Zipcode | Phone Number | | Organization | | | | + + + + + | [facility] | [address] | [place] [address] | | + + + + + Brain natriuretic peptide (05/26/2018 12:14 PM) + + + + + | Component | Value | Ref Range | Performed At | + + + + + | BRAIN NATRIURETIC | 1,728.24 (H)Comment: | 0 - 100 pg/mL | [facility] | | PEPTIDE | Testing performed at | | | | | [facility];[address] | | | | | [place] [address] | | | + + + + + + + + + + | Performing | Address | City/State/Zipcode | Phone Number | | Organization | | | | + + + + + | [facility] | [address] | [place] [address] | | + + + + + Cardiac Panel (05/26/2018 12:14 PM) + + + + + | Component | Value | Ref Range | Performed At | + + + + + | WBC | 5.73 | 3.80 - 11.00 K/uL | [facility] | + + + + + | RBC | 3.32 (L) | 3.70 - 5.10 M/uL | [facility] | + + + + + | HGB | 12.1 | 11.3 - 15.5 g/dL | [facility] | + + + + + | HCT | 36.1 | 34.0 - 46.0 % | [facility] | + + + + + | MCV | 108.7 (H) | 80.0 - 100.0 fl | [facility] | + + + + + | MCH | 36.3 (H) | 27.0 - 34.0 pg | [facility] | + + + + + | MCHC | 33.4 | 32.0 - 35.5 g/dL | [facility] | + + + + + | RDW SD | 59.9 (H) | 37 - 53 fl | [facility] | + + + + + | PLT | 151 | 150 - 400 K/uL | [facility] | + + + + + | MPV | 10.1 | fl | [facility] | + + + + + | DIFF TYPE | AUTOMATED | | [facility] | + + + + + | NEUTROPHILS | 72.41 | % | [facility] | + [...] 4.15 | 1.90 - 7.40 K/uL | [facility] | + + + + + | LYMPHOCYTES ABS | 1.09 | 1.00 - 3.90 K/uL | [facility] | + + + + + | MONOCYTES ABS | 0.37 | 0.00 - 0.80 K/uL | [facility] | + + + + + | EOSINOPHILS ABS | 0.06 | 0.00 - 0.50 K/uL | [facility] | + + + + + | BASOPHILS ABS | 0.06 | 0.00 - 0.10 K/uL | [facility] | + + + + + | MORPHOLOGY | 2+Comment: MACRO | | [facility] | + + + + + | Platelet Estimate | ADEQUATE | | [facility] | + + + + + | SODIUM | 140 | 135 - 145 mmol/L | [facility] | + + + + + | POTASSIUM | 4.6 | 3.5 - 4.9 mmol/L | [facility] | + + + + + | CHLORIDE | 99 | 99 - 109 mmol/L | [facility] [...] (H) | 8 - 25 mg/dL | [facility] | + + + + + | CREATININE | 7.89 (H) | 0.50 - 1.00 mg/dL | [facility] | + + + + + | BUN/CREAT | 5 | | [facility] | + + + + + | CALCIUM | 9.6 | 8.5 - 10.5 mg/dL | [facility] | + + + + + | TOTAL PROTEIN | 7.2 | 6.3 - 8.2 g/dL | [facility] | + + + + + | Albumin | 4.3 | 3.6 - 5.0 g/dL | [facility] | + + + + + | GLOBULIN | 2.9 | 1.3 - 4.9 g/dL | [facility] | + + + + + | A/G | 1.5 | 1.0 - 2.4 | [facility] | + + + + + | TBIL | 1.1 | 0.1 - 1.5 mg/dL | [facility] | + + + + + | ALK PHOS | 120 (H) | 35 - 115 U/L | [facility] | + + + + + | AST | 82 (H) | 10 - 45 U/L | [facility] | + + + + + | ALT | 64 | 10 - 65 U/L | [facility] | + + + + + | EGFR | 6 (L)Comment: GFR <60: | >60 mL/min/1.73m2 | [facility] | | | [...] (H) | 30 - 240 U/L | [facility] | + + + + + | INR | 1.6Comment: REFERENCE | | [facility] | | | [...] 29 | 23 - 32 seconds | [facility] | + + + + + | MMB | 7.8 (H) | 0.5 - 3.6 ng/mL | [facility] | + + + + + | CK-MB Index | 2.7Comment: CK INDEX | | [facility] | | | INTERPRETATION: [...] | | | | | performed at [facility];[address] | | | | | [address];[place] | | | | | [address] | | | + + + + + + + + + + | Performing | Address | City/State/Zipcode | Phone Number | | Organization | | | | + + + + + | [facility] | [address] | [place] [address] | | + + + + + [...] space: 4th Puncture | | | method: Nptz-hcu-olpntx catheter Ultrasound guidance: yes | | | [...] perforation, infection and | | | pain Irving protocol: Imaging studies available: yes | | [...] Performed At | + + + | [place] [id number] Criteria Met 2 in 2 | ED [...] Count (12 mo.) Facility Visits Low Acuity [facility] | | | [facility] [address] [facility] 5 0 Total 6 0 | | | Note: Visits indicate total known visits. Medicaid Low Acuity Dx | | | are the number of primary diagnoses on the Medicaid's Low Acuity dx | | | list. Recent Emergency Department Visit Summary Date Facility | | | City State Type Diagnoses or Chief Complaint May 26, 2018 [facility] | | | [facility] [place] Emergency Chest pain, unspecified | | | May 26, [address] [facility] [place] Emergency Chief | | | Complaint: FLU SYMPTOMS May 25, [address] [facility] [place] | | | Emergency Chief Complaint: SOB/COUGH May 10, 2018 [facility] | | | [place] Emergency Epistaxis Other long | | [...] | | | disease Feb 14, 2018 [facility] [place] Emergency | | | Functional dyspepsia Other ascites Epigastric pain | | | Allergy status to narcotic agent status Radiographic dye | | | allergy status Nicotine dependence, unspecified, uncomplicated | | | Other buttermaker continuous churn (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 Sep 16, 2017 [facility] [place] Emergency Chronic kidney disease, | | | unspecified Dependence on renal dialysis Pain, | | | unspecified Allergy status to narcotic agent status | | | Nicotine dependence, unspecified, uncomplicated Other half-way | | | (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 Elevated [...] record at this time. | | | [facility] Portal This patient has registered at the [facility] | | | [facility] Emergency Department For more information visit: | | | [email or web address] | | | [email or web address] PLEASE NOTE: 1. Any care recommendations and [...] | | completeness of information provided. 2019 [employer] | | | [employer]. - [email or web address] | | + + + + + | Procedure Note | + + | Interface, Lab - 05/26/2018 12:00 PM PDT Formatting of this note may be different | | from the original.[id number] Met 2 in 2Security and | | SafetyNo recent Security Events currently on fileED Care GuidelinesThere are currently | | no ED Care Guidelines for this patient. Please check your facility's medical records | | system.Prescription Drug Report (12 Mo.)PDMP query found no report.E.D. Visit Count (12 | | mo.)Facility Visits Low Acuity [facility] 1 0 [facility] | | Hospital 5 0 Total 6 0 Note: Visits indicate total known visits. Medicaid Low Acuity Dx | | are the number of primary diagnoses on the Medicaid's Low Acuity dx list. Recent | | Emergency Department Visit SummaryDate Facility [facility] State Type Diagnoses or Chief | | Complaint May 26, 2018 [facility] [place] Emergency Chest pain, | | unspecified May 26, 2018 [facility] [place] Emergency Chief Complaint: FLU | | SYMPTOMS May 25, 2018 [facility] [place] Emergency Chief Complaint: | | SOB/COUGH May 10, 2018 [facility] [place] Emergency Epistaxis Other long [...] stage renal disease Feb 14, 2018 [facility] [place] Emergency Functional dyspepsia Other ascites Epigastric pain | | Allergy status to narcotic agent status Radiographic dye allergy status Nicotine | | dependence, unspecified, uncomplicated Other buttermaker continuous churn (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 Sep | | 2017 [facility] [place] Emergency Chronic kidney disease, unspecified | | Dependence on renal dialysis Pain, unspecified Allergy status to narcotic agent | | status Nicotine dependence, unspecified, uncomplicated Other half-way (current) | | 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 Elevated blood-pressure [...] record at this time. Collective | | Anupam patient has registered at the [facility] | | Department For more information visit: | | [email or web address] | | PLEASE NOTE: 1. Any [...] to the | | limitations of applicable [employer] Policies. 3. You should consult directly with | | the organization that provided a care guideline or other clinical history with any | | questions about additional information or accuracy or completeness of information | | provided.2019 [employer] - [email or web address] | | Hypertensive heart and chronic kidney disease without heart failure, with stage 5 chroni c kidney disease, or end stage renal disease | | | |Feb 14, 2018 [facility] [place] [place] [facility] | | Functional dyspepsia | | Other ascites | | Epigastric pain | | Allergy status to narcotic agent status | | Radiographic dye allergy status | | Nicotine dependence, unspecified, uncomplicated | | Other half-way (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 | | | |Sep 16, 2017 [facility] [place] [facility] | | Chronic kidney disease, unspecified | | Dependence on renal dialysis | | Pain, unspecified | | Allergy status to narcotic agent status | | Nicotine dependence, unspecified, uncomplicated | | Other half-way (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 | | Elevated blood-pressure [...] providers on record at this time. | |Collective Portal | |This patient has registered at the [facility] Emergency Department | |For more information visit: [id number] | |andnbsp PLEASE NOTE: | | 1. [...] of information provided. | | | |2019 [employer] - [email or web address] | + + + +---------+ + + | Performing | Address | City/State/Zipcode | Phone Number | | Organization | | | | + +---------+ + + | ED INFORMATION | | | | | EXCHANGE | | | | + +---------+ + + X-ray chest 1 view (05/26/2018 9:55 AM) + + + | Narrative | Performed At | + + + | This is a non-reportable procedure without a radiologist report and | [facility] | | is used for image storage only | RADIOLOGY | + + + + + | Procedure Note | + + | 05/26/2018 9:56 AM PDT This is a non-reportable procedure without a radiologist | | report and is used for image storage only | + + + + + + + | Performing | Address | City/State/Zipcode | Phone Number | | Organization | | | | + + + + + | [facility] | [address] | [place] [address] | | + + + + + in this encounter Visit Diagnoses + + | Diagnosis | + + | Acute systolic CHF (congestive heart failure) (HCC) - Primary | + + | Chest pain, unspecified type | + + | Pleural effusion on right | + + | Unspecified pleural effusion | + + | Other ascites | + + | Acute respiratory distress | + + | Other pulmonary insufficiency, not elsewhere classified | + + | ESRD on hemodialysis | + + | End stage renal disease | + + | Hyperkalemia | + + | Hyperpotassemia | + + | Hyperphosphatemia | + + | Disorders of phosphorus metabolism | + + | At high risk for electrolyte imbalance | + + | Hypoalbuminemia | + + | Other disorders of plasma protein metabolism | + + | Anemia in ESRD (end-stage renal disease) (HCC) | + + | Anemia in chronic kidney disease | + + | SOB (shortness of breath) | + + | Shortness of breath | + + | Non-compliance | + + | Personal history of noncompliance with medical treatment, presenting hazards to health | + + | Chronic systolic heart failure (HCC) | + + | Chronic systolic heart failure | + + | Pulmonary artery hypertension (HCC) | + + | Other chronic pulmonary heart diseases | + + | Non-rheumatic tricuspid valve insufficiency | + + | Tricuspid valve disorders, specified as nonrheumatic | + + | Non-rheumatic mitral regurgitation | + + | Diastolic dysfunction with chronic heart failure (HCC) | + + | Transaminitis | + + | Nonspecific elevation of levels of transaminase or lactic acid dehydrogenase (LDH) | + + Admitting Diagnoses + + | Diagnosis | + + | Acute respiratory distress | + + | Other pulmonary insufficiency, not elsewhere classified | + + | Hyperkalemia | + + | Hyperpotassemia | + + | Hyperphosphatemia | + + | Disorders of phosphorus metabolism | + + | Hypoalbuminemia | + + | Other disorders of plasma protein metabolism | + + | Other ascites | + + | Anemia in ESRD (end-stage renal disease) (HCC) | + + | Anemia in chronic kidney disease | + + | Pleural effusion on right | + + | Unspecified pleural effusion | + + | End-stage renal disease on hemodialysis (HCC) | + + | End stage renal disease | + + | Acute systolic CHF (congestive heart failure) (HCC) | + + | Chest pain, unspecified type | + + | At high risk for electrolyte imbalance | + + Administered Medications + +--------+---------+------+------+------+ | Medication Order | MAR | Action | Dose | Rate | Site | | | Action | Date | | | | + +--------+---------+------+------+------+ + +---+ | acetaminophen (TYLENOL) | | | suppository 650 mg 650 mg, | | | Rectal, Every 6 Hours PRN, Mild | | | Pain (1-3), Fever, Starting Sat | | | 05/26/18 at 1721 | | + +---+ | | | + +---+ + +-------+ +--------+---+---+ | acetaminophen (TYLENOL) tablet | Given | | 650 mg | | | | 650 mg 650 mg, Oral, Every 6 | | 9 00:35 | | | | | Hours PRN, Mild Pain (1-3), | | PDT | | | | | Fever, Starting 05/26/18 at | | | | | | | 1721 | | | | | | + +-------+ +--------+---+---+ +---+---+ | | | +---+---+ + +-------+ +--------+-------+---+ | azithromycin (ZITHROMAX) 500 mg | Given | | 500 mg | 250 | | | in sodium chloride (IV) 0.9 % | | 9 19:46 | | mL/hr | | | 250 mL IVPB 500 mg, Intravenous, | | PDT | | | | | Administer over 60 Minutes, | | | | | | | Every 24 Hours, First dose on Sat | | | | | | | 05/26/18 at 1800 | | | | | | + +-------+ +--------+-------+---+ +---+---+ | | | +---+---+ + + + +--------+---+---+ | bupivacaine-EPINEPHrine (PF) | Given by | | 10 mLs | | | | 0.5% [id number] injection 10 mL | Other | 9 16:19 | | | | | 10 mL, Infiltration, Once, Sat | | PDT | | | | | 05/26/18 at 1300, For 1 dose | | | | | | + + + +--------+---+---+ +---+---+ | | | +---+---+ + +-------+ + +---+---+ | calcium carbonate (TUMS) | Given | | 1,000 mg | | | | chewable tablet 1,000 mg 1,000 | | 9 09:03 | | | | | mg, Oral, 2 Times Daily, First | | PDT | | | | | dose on 05/27/18 at 1030 | | | | | | + +-------+ + +---+---+ +-------+ + +---+---+ | Given | | 1,000 mg | | | | | 9 22:27 | | | | | | PDT | | | | +-------+ + +---+---+ | Given | | 1,000 mg | | | | | 9 12:28 | | | | | | PDT | | | | +-------+ + +---+---+ +---+---+ | | | +---+---+ + +-------+ +-----+-------+---+ | cefTRIAXone (ROCEPHIN) IVPB 1 g | Given | | 1 g | 100 | | | 1 g, Intravenous, Administer | | 9 18:29 | | mL/hr | | | over 30 Minutes, Every 24 Hours, | | PDT | | | | | First dose on 05/26/18 at 1800 | | | | | | + +-------+ +-----+-------+---+ +---+---+ | | | +---+---+ + +-------+ +-------+---+---+ | cetirizine (ZyrTEC) tablet 10 | Given | | 10 mg | | | | mg 10 mg, Oral, Daily, First | | 9 12:17 | | | | | dose on 05/27/18 at 1100 | | PDT | | | | + +-------+ +-------+---+---+ +-------+ +-------+---+---+ | Given | | 10 mg | | | | | 9 09:03 | | | | | | PDT | | | | +-------+ +-------+---+---+ | Given | | 10 mg | | | | | 9 12:27 | | | | | | PDT | | | | +-------+ +-------+---+---+ +---+---+ | | | +---+---+ + +-------+ +-------+---+---+ | clopidogrel (PLAVIX) tablet 75 | Given | | 75 mg | | | | mg 75 mg, Oral, Daily, First | | 9 18:35 | | | | | dose on 05/26/18 at 1800 | | PDT | | | | + +-------+ +-------+---+---+ +-------+ +-------+---+---+ | Given | | 75 mg | | | | | 9 09:21 | | | | | | PDT | | | | +-------+ +-------+---+---+ +---+---+ | | | +---+---+ + +-------+ +-------+---+---+ | clopidogrel (PLAVIX) tablet 75 | Given | | 75 mg | | | | mg 75 mg, Oral, Daily, First | | 9 12:13 | | | | | dose on 05/28/18 at 0900 | | PDT | | | | + +-------+ +-------+---+---+ +-------+ +-------+---+---+ | Given | | 75 mg | | | | | 9 09:00 | | | | | | PDT | | | | +-------+ +-------+---+---+ | Given | | 75 mg | | | | | 9 12:27 | | | | | | PDT | | | | +-------+ +-------+---+---+ +---+---+ | | | +---+---+ + +-------+ +--------+---+---+ | colchicine tablet 0.6 mg 0.6 | Given | | 0.6 mg | | | | mg, Oral, Daily, First dose on | | 9 12:14 | | | | | 05/28/18 at 1300 | | PDT | | | | + +-------+ +--------+---+---+ +-------+ +--------+---+---+ | Given | | 0.6 mg | | | | | 9 09:00 | | | | | | PDT | | | | +-------+ +--------+---+---+ | Given | | 0.6 mg | | | | | 9 12:27 | | | | | | PDT | | | | +-------+ +--------+---+---+ +---+---+ | | | +---+---+ + +-------+ +-------+---+---+ | diphenhydrAMINE (BENADRYL) | Given | | 25 mg | | | | capsule 25 mg 25 mg, Oral, Every | | 9 17:30 | | | | | 6 Hours PRN, Itching, Starting | | PDT | | | | | 05/28/18 at 1637 | | | | | | + +-------+ +-------+---+---+ +-------+ +-------+---+---+ | Given | | 25 mg | | | | | 9 20:42 | | | | | | PDT | | | | +-------+ +-------+---+---+ +---+---+ | | | +---+---+ + +-------+ +---------+---+---+ | diphenhydrAMINE (BENADRYL) | Given | | 12.5 mg | | | | injection 12.5 mg 12.5 mg, | | 9 20:40 | | | | | Intravenous, Once, 05/26/18 at | | PDT | | | | | 2030, For 1 dose | | | | | | + +-------+ +---------+---+---+ +---+---+ | | | +---+---+ + +-------+ +--------+---+---+ | heparin (porcine) 1000 unit/mL | Given | | 1,000 | | | | injection 1,000 Units 1,000 | | 9 17:28 | Units | | | | Units, Intracatheter, Once In | | PDT | | | | | Dialysis, 05/27/18 at 1700, | | | | | | | For 1 dose, DIALYSIS | | | | | | + +-------+ +--------+---+---+ +---+---+ | | | +---+---+ + +-------+ +--------+---+ + | heparin (porcine) 1000 unit/mL | Given | | 1,000 | | Left Arm | | injection 1,000 Units 1,000 | | 9 07:25 | Units | | | | Units, Intravenous, Once In | | PDT | | | | | Dialysis, [facility] 05/30/18 at 0730, | | | | | | | For 1 dose, DIALYSIS | | | | | | + +-------+ +--------+---+ + +---+---+ | | | +---+---+ + +-------+ +--------+---+---+ | heparin (porcine) 1000 unit/mL | Given | | 2,000 | | | | injection 2,000 Units 2,000 | | 9 17:28 | Units | | | | Units, Intracatheter, Once In | | PDT | | | | | Dialysis, [place] 05/27/18 at 1700, | | | | | | | For 1 dose, DIALYSIS | | | | | | + +-------+ +--------+---+---+ +---+---+ | | | +---+---+ + +-------+ +--------+---+---+ | heparin (porcine) 1000 unit/mL | Given | | 2,000 | | | | injection 2,000 Units 2,000 | | 9 12:35 | Units | | | | Units, Intracatheter, Once In | | PDT | | | | | Dialysis, [facility] 05/28/18 at 1230, | | | | | | | For 1 dose, DIALYSIS | | | | | | + +-------+ +--------+---+---+ +---+---+ | | | +---+---+ + +-------+ +--------+---+-------+ | heparin (porcine) 1000 unit/mL | Given | | 2,000 | | Other | | injection 2,000 Units 2,000 | | 9 07:53 | Units | | | | Units, Intracatheter, Once In | | PDT | | | | | Dialysis, [facility] 06/01/18 at 0800, | | | | | | | For 1 dose, DIALYSIS | | | | | | + +-------+ +--------+---+-------+ +---+---+ | | | +---+---+ + +-------+ +-------+---+ + | heparin (porcine) 1000 unit/mL | Given | | 500 | | Left Arm | | injection 500 Units 500 Units, | | 9 07:45 | Units | | | | Intravenous, Once In Dialysis, | | PDT | | | | | 05/30/18 at 0730, For 1 dose, | | | | | | | DIALYSIS | | | | | | + +-------+ +-------+---+ + +---+---+ | | | +---+---+ + +-------+ +--------+---+---+ | heparin (porcine) 5000 | Given | | 5,000 | | | | unit/0.5mL injection 5,000 Units | | 9 06:26 | Units | | | | 5,000 Units, Subcutaneous, Every | | PDT | | | | | 8 Hours Scheduled (3 times per | | | | | | | day), First dose on 05/27/18 | | | | | | | at 1400 | | | | | | + +-------+ +--------+---+---+ +-------+ +--------+---+---+ | Given | | 5,000 | | | | | 9 20:54 | Units | | | | | PDT | | | | +-------+ +--------+---+---+ | Given | | 5,000 | | | | | 9 21:47 | Units | | | | | PDT | | | | +-------+ +--------+---+---+ +---+---+ | | | +---+---+ + +-------+ +-------+---+---+ | hydrALAZINE (APRESOLINE) tablet | Given | | 10 mg | | | | 10 mg 10 mg, Oral, 3 Times | | 9 06:25 | | | | | Daily, First dose on 05/27/18 | | PDT | | | | | at 1500 | | | | | | + +-------+ +-------+---+---+ +-------+ +-------+---+---+ | Given | | 10 mg | | | | | 9 20:54 | | | | | | PDT | | | | +-------+ +-------+---+---+ | Given | | 10 mg | | | | | 9 05:43 | | | | | | PDT | | | | +-------+ +-------+---+---+ +---+---+ | | | +---+---+ + +-------+ +-------+---+---+ | hydrALAZINE (APRESOLINE) tablet | Given | | 25 mg | | | | 25 mg 25 mg, Oral, 3 Times | | 9 15:06 | | | | | Daily, First dose on Mon05/29/18 | | PDT | | | | | at 1400 | | | | | | + +-------+ +-------+---+---+ +---+---+ | | | +---+---+ + +-------+ +-------+---+---+ | hydrALAZINE (APRESOLINE) tablet | Given | | 50 mg | | | | 50 mg 50 mg, Oral, 3 Times | | 9 13:55 | | | | | Daily, First dose on 05/29/18 | | PDT | | | | | at 2200 | | | | | | + +-------+ +-------+---+---+ +-------+ +-------+---+---+ | Given | | 50 mg | | | | | 9 22:28 | | | | | | PDT | | | | +-------+ +-------+---+---+ | Given | | 50 mg | | | | | 9 14:28 | | | | | | PDT | | | | +-------+ +-------+---+---+ +---+---+ | | | +---+---+ + +-------+ + +---+---+ | HYDROcodone-acetaminophen | Given | | 1 tablet | | | | (NORCO) 5-325 MG per tablet 1 | | 9 04:32 | | | | | tablet 1 tablet, Oral, Every 4 | | PDT | | | | | Hours PRN, Moderate Pain (4-6), | | | | | | | Severe Pain (7-10), pain, | | | | | | | Starting 05/27/18 at 0846 | | | | | | + +-------+ + +---+---+ +-------+ + +---+---+ | Given | | 1 tablet | | | | | 9 01:18 | | | | | | PDT | | | | +-------+ + +---+---+ | Given | | 1 tablet | | | | | 9 06:43 | | | | | | PDT | | | | +-------+ + +---+---+ +---+---+ | | | +---+---+ + +-------+ +--------+---+---+ | HYDROmorphone (DILAUDID) | Given | | 0.5 mg | | | | injection 0.5 mg 0.5 mg, | | 9 13:51 | | | | | Intravenous, Every 10 Min PRN, | | PDT | | | | | Pain, may repeat if pain | | | | | | | unrelieved., Starting 05/26/18 | | | | | | | at 1346, For 3 doses | | | | | | + +-------+ +--------+---+---+ +-------+ +--------+---+---+ | Given | | 0.5 mg | | | | | 9 18:34 | | | | | | PDT | | | | +-------+ +--------+---+---+ | Given | | 0.5 mg | | | | | 9 02:48 | | | | | | PDT | | | | +-------+ +--------+---+---+ +---+---+ | | | +---+---+ + +-------+ +--------+---+---+ | HYDROmorphone (DILAUDID) | Given | | 0.5 mg | | | | injection 0.5 mg 0.5 mg, | | 9 13:11 | | | | | Intravenous, Every 30 Min PRN, | | PDT | | | | | Moderate Pain (4-6), Severe Pain | | | | | | | (7-10), During HD for abdominal | | | | | | | pain, Starting 05/28/18 at | | | | | | | 0843, For 2 doses | | | | | | + +-------+ +--------+---+---+ +-------+ +--------+---+---+ | Given | | 0.5 mg | | | | | 9 14:32 | | | | | | PDT | | | | +-------+ +--------+---+---+ +---+---+ | | | +---+---+ + +-------+ +-------+---+---+ | isosorbide dinitrate (ISORDIL) | Given | | 10 mg | | | | tablet 10 mg 10 mg, Oral, 3 | | 9 20:54 | | | | | Times Daily, First dose on Mon | | PDT | | | | | 05/28/18 at 1430 | | | | | | + +-------+ +-------+---+---+ +-------+ +-------+---+---+ | Given | | 10 mg | | | | | 9 05:43 | | | | | | PDT | | | | +-------+ +-------+---+---+ +---+---+ | | | +---+---+ + +-------+ +-------+---+---+ | isosorbide dinitrate (ISORDIL) | Given | | 20 mg | | | | tablet 20 mg 20 mg, Oral, 3 | | 9 15:06 | | | | | Times Daily, First dose on Mon | | PDT | | | | | 05/29/18 at 1400 | | | | | | + +-------+ +-------+---+---+ +---+---+ | | | +---+---+ + +-------+ +-------+---+---+ | isosorbide dinitrate (ISORDIL) | Given | | 40 mg | | | | tablet 40 mg 40 mg, Oral, 3 | | 9 13:55 | | | | | Times Daily, First dose on Mon | | PDT | | | | | 05/29/18 at 2200 | | | | | | + +-------+ +-------+---+---+ +-------+ +-------+---+---+ | Given | | 40 mg | | | | | 9 22:27 | | | | | | PDT | | | | +-------+ +-------+---+---+ | Given | | 40 mg | | | | | 9 14:30 | | | | | | PDT | | | | +-------+ +-------+---+---+ +---+---+ | | | +---+---+ + +-------+ +-------+---+---+ | isosorbide mononitrate (IMDUR) | Given | | 30 mg | | | | 24 hr tablet 30 mg 30 mg, Oral, | | 9 20:16 | | | | | Every Evening, First dose on Sun | | PDT | | | | | 05/27/18 at 2000 | | | | | | + +-------+ +-------+---+---+ + +---+ | | | + +---+ | lactulose (CHRONULAC) 10 | | | GM/15ML solution 30 g 30 g, | | | Oral, Daily, First dose on Tue | | | 05/29/18 at 1030 | | + +---+ | | | + +---+ + +-------+ +-------+---+---+ | losartan (COZAAR) tablet 25 mg | Given | | 25 mg | | | | 25 mg, Oral, Daily, First dose | | 9 07:47 | | | | | on 05/28/18 at 0900 | | PDT | | | | + +-------+ +-------+---+---+ +---+---+ | | | +---+---+ + +-------+ +-------+---+---+ | losartan (COZAAR) tablet 50 mg | Given | | 50 mg | | | | 50 mg, Oral, Daily, First dose | | 9 18:35 | | | | | on 05/26/18 at 1800 | | PDT | | | | + +-------+ +-------+---+---+ +-------+ +-------+---+---+ | Given | | 50 mg | | | | | 9 09:21 | | | | | | PDT | | | | +-------+ +-------+---+---+ +---+---+ | | | +---+---+ + +-------+ +-------+---+---+ | metoprolol (LOPRESSOR) tablet | Given | | 25 mg | | | | 25 mg 25 mg, Oral, 2 Times | | 9 18:35 | | | | | Daily, First dose on 05/26/18 | | PDT | | | | | at 1800 | | | | | | + +-------+ +-------+---+---+ +-------+ +-------+---+---+ | Given | | 25 mg | | | | | 9 09:25 | | | | | | PDT | | | | +-------+ +-------+---+---+ | Given | | 25 mg | | | | | 9 22:09 | | | | | | PDT | | | | +-------+ +-------+---+---+ +---+---+ | | | +---+---+ + +-------+ +-------+---+---+ | metoprolol (TOPROL-XL) 24 hr | Given | | 25 mg | | | | tablet 25 mg 25 mg, Oral, Daily, | | 9 12:14 | | | | | First dose on 05/28/18 at | | PDT | | | | | 1430 | | | | | | + +-------+ +-------+---+---+ +-------+ +-------+---+---+ | Given | | 25 mg | | | | | 9 09:00 | | | | | | PDT | | | | +-------+ +-------+---+---+ | Given | | 25 mg | | | | | 9 12:28 | | | | | | PDT | | | | +-------+ +-------+---+---+ +---+---+ | | | +---+---+ + +-------+ +------+---+---+ | ondansetron (ZOFRAN) injection | Given | | 4 mg | | | | 4 mg 4 mg, Intravenous, Once, | | 9 13:00 | | | | | 05/26/18 at 1258, For 1 dose | | PDT | | | | + +-------+ +------+---+---+ +---+---+ | | | +---+---+ + +-------+ +------+---+---+ | ondansetron (ZOFRAN) injection | Given | | 4 mg | | | | 4 mg 4 mg, Intravenous, Once, | | 9 13:51 | | | | | 05/26/18 at 1348, For 1 dose | | PDT | | | | + +-------+ +------+---+---+ +---+---+ | | | +---+---+ + +-------+ +------+---+---+ | ondansetron (ZOFRAN) injection | Given | | 4 mg | | | | 4 mg 4 mg, Intravenous, Every 8 | | 9 18:34 | | | | | Hours PRN, Nausea, Vomiting, | | PDT | | | | | Starting 05/26/18 at 1721 | | | | | | + +-------+ +------+---+---+ +-------+ +------+---+---+ | Given | | 4 mg | | | | | 9 02:48 | | | | | | PDT | | | | +-------+ +------+---+---+ +---+---+ | | | +---+---+ + +-------+ +------+---+---+ | ondansetron (ZOFRAN) injection | Given | | 4 mg | | | | 4 mg 4 mg, Intravenous, Every 8 | | 9 16:15 | | | | | Hours PRN, Nausea, Vomiting, | | PDT | | | | | Starting 05/27/18 at 1030 | | | | | | + +-------+ +------+---+---+ +-------+ +------+---+---+ | Given | | 4 mg | | | | | 9 14:45 | | | | | | PDT | | | | +-------+ +------+---+---+ | Given | | 4 mg | | | | | 9 16:48 | | | | | | PDT | | | | +-------+ +------+---+---+ + +---+ | | | + +---+ | ondansetron (ZOFRAN-ODT) | | | disintegrating tablet 4 mg 4 mg, | | | Oral, Every 6 Hours PRN, Nausea, | | | Vomiting, Starting 05/27/18 | | | at 1030 | | + +---+ | | | + +---+ + +-------+ +------+---+---+ | oxyCODONE (ROXICODONE) | Given | | 5 mg | | | | immediate release tablet 5 mg 5 | | 9 15:43 | | | | | mg, Oral, Every 4 Hours PRN, | | PDT | | | | | Moderate Pain (4-6), Starting Tue | | | | | | | 05/29/18 at 0902 | | | | | | + +-------+ +------+---+---+ +-------+ +------+---+---+ | Given | | 5 mg | | | | | 9 22:37 | | | | | | PDT | | | | +-------+ +------+---+---+ | Given | | 5 mg | | | | | 9 07:57 | | | | | | PDT | | | | +-------+ +------+---+---+ +---+---+ | | | +---+---+ + +-------+ +-------+---+---+ | pantoprazole (PROTONIX) EC | Given | | 40 mg | | | | tablet 40 mg 40 mg, Oral, Every | | 9 05:34 | | | | | Morning Before Breakfast, First | | PDT | | | | | dose on 05/27/18 at 1030 | | | | | | + +-------+ +-------+---+---+ +-------+ +-------+---+---+ | Given | | 40 mg | | | | | 9 05:15 | | | | | | PDT | | | | +-------+ +-------+---+---+ | Given | | 40 mg | | | | | 9 05:58 | | | | | | PDT | | | | +-------+ +-------+---+---+ +---+---+ | | | +---+---+ + +-------+ +------+---+---+ | polyethylene glycol (GLYCOLAX) | Given | | 17 g | | | | packet 17 g 17 g, Oral, Daily | | 9 07:52 | | | | | PRN, Constipation, Starting Sat | | PDT | | | | | 05/26/18 at 1721 | | | | | | + +-------+ +------+---+---+ +---+---+ | | | +---+---+ + +-------+ +---------+-------+---+ | promethazine (PHENERGAN) IVPB | Given | | 12.5 mg | 100 | | | 12.5 mg 12.5 mg, Intravenous, | | 9 15:43 | | mL/hr | | | Administer over 15 Minutes, Every | | PDT | | | | | 6 Hours PRN, Nausea, Vomiting, | | | | | | | Starting 05/27/18 at 2004, | | | | | | | When ordered with ondansetron, | | | | | | | use promethazine as second | | | | | | | treatment choice. | | | | | | + +-------+ +---------+-------+---+ +-------+ +---------+-------+---+ | Given | | 12.5 mg | 100 | | | | 9 22:23 | | mL/hr | | | | PDT | | | | +-------+ +---------+-------+---+ | Given | | 12.5 mg | 100 | | | | 9 08:05 | | mL/hr | | | | PDT | | | | +-------+ +---------+-------+---+ +---+---+ | | | +---+---+ + +-------+ +---------+---+---+ | senna-docusate (PERICOLACE) | Given | | 3 | | | | 8.6-50 MG per tablet 3 tablet 3 | | 9 21:48 | tablets | | | | tablet, Oral, Nightly, First dose | | PDT | | | | | on 05/27/18 at 2200 | | | | | | + +-------+ +---------+---+---+ +-------+ +---------+---+---+ | Given | | 3 | | | | | 9 20:34 | tablets | | | | | PDT | | | | +-------+ +---------+---+---+ | Given | | 3 | | | | | 9 22:26 | tablets | | | | | PDT | | | | +-------+ +---------+---+---+ +---+---+ | | | +---+---+ + +-------+ + +---+---+ | sevelamer (RENVELA) tablet | Given | | 1,600 mg | | | | 1,600 mg 1,600 mg, Oral, 3 Times | | 9 13:55 | | | | | Daily With Meals, First dose on | | PDT | | | | | 05/27/18 at 1230 | | | | | | + +-------+ + +---+---+ +-------+ + +---+---+ | Given | | 1,600 mg | | | | | 9 18:40 | | | | | | PDT | | | | +-------+ + +---+---+ | Given | | 1,600 mg | | | | | 9 12:27 | | | | | | PDT | | | | +-------+ + +---+---+ + +---+ | | | + +---+ | sodium chloride (bolus) 0.9 % | | | 100 mL 100 mL, Intravenous, | | | Every 15 Min PRN, Prevent | | | clotting, Starting 05/28/18 at | | | 1210 | | + +---+ | | | + +---+ | sodium chloride (bolus) 0.9 % | | | 200 mL 200 mL, Intravenous, | | | Every 30 Min PRN, Prevent | | | clotting, Starting 05/30/18 at | | | 0654 | | + +---+ | | | + +---+ | sodium chloride 0.9 % bolus 100 | | | mL 100 mL, Intravenous, Every 5 | | | Min PRN, for cramps or | | | hypotension during dialysis., | | | Starting 05/28/18 at 1211, | | | DIALYSIS | | + +---+ | | | + +---+ + +-------+ +-------+---+---+ | traMADol (ULTRAM) tablet 50 mg | Given | | 50 mg | | | | 50 mg, Oral, Every 8 Hours PRN, | | 9 09:51 | | | | | Moderate Pain (4-6), Starting Wed | | PDT | | | | | 05/30/18 at 0927 | | | | | | + +-------+ +-------+---+---+ +-------+ +-------+---+---+ | Given | | 50 mg | | | | | 9 20:42 | | | | | | PDT | | | | +-------+ +-------+---+---+ +---+---+ | | | +---+---+ in this encounter
--- OUTSIDE RECORDS SUMMARY | ~2018-06-04 | XMS | Encounter Summary ---
Demographics + + + | Address | [address] | | | [place] [address] | + + + | Home Phone [...] Author | [facility] | | | and [place] | + + + | Organization | [facility] | | | and [place] | + + + | Address | Unknown | + + + | Phone | Unavailable | + + + Support + + +---------+ + | Name | Relationship | Address | Phone | + + +---------+ + | Cory Wledon | ECON | Unknown | | + + +---------+ + | Deidra Weldon | ECON | Unknown | | + + +---------+ + | Thania Mallory | ECON | Unknown | | + + +---------+ + Care Team Providers + +------+ + | Care Automatic Spooler Operator Name | Role | Phone | [...] | | [address] | [address] | | | | | [place], [place] | [place], [place] | | | | | [phone] | [id number] | | | | | [phone] | | | +--------+ + + + [...]
--- OUTSIDE RECORDS SUMMARY | ~2018-06-04 | XMS | Clinical Summary ---
Demographics + + + | Address | [address] | | | [place] [address] | + + + | Home Phone [...] | | | | | [place] [address] | | + + + + + | Thania Mallory | ECON | [address] | | | | | [place] [address] | | + + + + + | Deidra Weldon | ECON | [address] | | | | | [place] | | | | | [address] | | + + + + + Care Team Providers + +------+ + | Care Director Of Distribution Name | Role | Phone | + +------+ + | Jonathan Alonso MD | PP | | + +------+ + Source Comments DANILO is fully live on both [facility] Ambulatory and [facility] InPatient.[facility]ly [facility] Allergies + + + + + + [...] Denise | | | | | | [place], [place] | | | | | | [phone] | | | | | | [phone] | | | | | | | [...] | re | [phone] | [place] [address] | | | B | | | | | + +--------+ +--------+ + + | 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 MEDICAID | 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 SUPERVISOR | xxxxxxxx | Medica | | | | | [place] | | id | | | | | [place] | | | | | + +--------+ +--------+ + + | [facility] | MEDICA | xxxxxxxxxx | Agency | | RENAL DEPT [id number] | | RECIPIENT EVAL | RE | | | | [place] [address] | | | RENAL | | | [...] | | al/Fam | | 1994 | [phone] | [address] [place] | | | kamron | | | [address]: | [address] | | | | | | | | | | | | | [phone] | | | | | | [phone] | | + +--------+ +--------+ + + | CORY ALVES | Kisha | Mother | [birth year]06[birth year] | Home: | [address] # | | | l | | [phone] | [phone] | [address] [place] | | | [place] | | | [phone] | [phone] | | | g | | | | | + +--------+ +--------+ + +
--- OUTSIDE RECORDS SUMMARY | ~2018-06-04 | XMS | Encounter Summary ---
Demographics + + + | Address | [address] | | | [place] [address] | + + + | Home Phone [...] + + + | Author | [facility] | + + + | Organization | [facility] | + + + | Address [...] | | | | | [place] [address] | | + + + + + | Wilson De Guzman | ECON | Unknown | | + + + + + Care Team Providers + +------+ + | Care Technical Asst Name | Role | Phone | + +------+ + | Tien Nicholson MD | PCP | | + +------+ + Reason for Visit + + + | Reason | Comments | + + + | Shortness of Breath | | + + + | Referral | Transfer from [facility] | + + + Auth/Cert +--------+--------+ + + + + | Status | Reason | Specialty | Diagnoses / | Referred By | Referred To | | | | | Procedures | Contact | Contact | +--------+--------+ + + + + | | | Internal | Diagnoses | | [facility] 4th | | | | Medicine | Acute | | [address] | | | | | respiratory | | [address] | | | | | distress | | [address] | | | | | Other | | [place], [place] | | | | | ascites | | [address] Phone: | | | | | Pleural | | [phone] | | | | | effusion on | | Fax: | | | | | right Chest | | [phone] | | | | | pain, | | | | | | | unspecified | | | | | | | type | | | +--------+--------+ + + + + Encounter Details +--------+ + + + + | Date | Type | Department | Care Team | Description | +--------+ + + + + | 05/26/ | Hospital | [facility] | Aneudy Hunter, | Pleural effusion on | | 2019 - | Encounter | [facility] 4th | [address] | right (Primary Dx); | | | | [facility] | [place] [address] | Chest pain, | | 06/01/ | | [address] | [phone] [place], | unspecified type; | | 2019 | | [place] [address] | MD Mayco [address] | Other ascites; Acute | | | | [phone] | [address] | respiratory | | | | | [place] [address] | distress; End-stage | | | | | [phone] | renal disease on | | | | | | hemodialysis ([facility]); | | | | | Anthony Belcher MD | Hyperkalemia; | | | | | [address] | Hyperphosphatemia; | | | | | [place] [address] | At high risk for | | | | | [phone] | electrolyte | | | | | | imbalance; Acute | | | | | Darell Kowalski MD | systolic CHF | | | | | [address] | (congestive heart | | | | | [place] [address] | failure) ([facility]); | | | | | [phone] | Hypoalbuminemia; | | | | | | Anemia in ESRD | | | | | | (end-stage renal | | | | | | disease) ([facility]); ESRD | | | | | | [...] of this encounter Progress Notes Tino Paiz, PUBLIC TRANSPORTATION INSPECTOR - 06/01/2018 3:06 PM PDTFormatting of this note may be different fro m the original. [facility] Department of Respiratory Nursing Home Oxygen Evaluation (Evaluation is valid for 48 [...] the prelim submitted orders, MWF No acute DCS ENGINEER indication ESTEFANY as indicated with HD Protein [...] note may be different from pierre coleman. [facility] Service: Hospitalist Progress Note Pt: Dara Louise AGE/SEX: 23 y.o. female ROOM: 4441/4441-1 : 1995 PCP: TIEN NICHOLSON ADMIT DATE: 05/26/2018 TODAY'S DATE: 05/31/2018 Hospital Day/Hospital Course: LOS: [address] Belcher 23-year-old female with past medical history of end-stage renal disease on hemodialysis Mon, hypertension, anemia of chronic disease who went to [facility] with increasing shortness of breath [...] Component Value Units Date/Time Culture, Body Fluid [[id number]] Collected: 05/26/18 1412 Specimen: Body Fluid from Pleural Fluid Updated: 05/30/18 0733 Specimen Description PLEURAL FLUID GRAM STAIN WBC'S SEEN GRAM STAIN NO ORGANISMS SEEN GRAM STAIN STAIN PERFORMED ON CYTOSPIN CULTURE NO GROWTH 4 DAYS Culture, Body Fluid [[id number]] Collected: 05/26/18 1513 Specimen: Other from Ascites Fluid Updated: 05/30/18 0732 Specimen Description ASCITES FLUID GRAM STAIN STAIN PERFORMED ON CYTOSPIN GRAM STAIN WBC'S SEEN GRAM STAIN NO EPITHELIAL CELLS SEEN GRAM STAIN NO ORGANISMS SEEN CULTURE NO GROWTH 4 DAYS Gram stain [[id number]] Collected: 05/29/18 1256 Specimen: Sputum from Thoracic Fluid Updated: 05/29/18 2339 Specimen Description THORACIC FLUID CULTURE 1+ WBC'S SEEN NO ORGANISMS SEEN Lactate dehydrogenase, body fluid [[id number]] Collected: 05/29/18 1256 Specimen: Body Fluid from Pleural, Right Updated: 05/29/18 1619 FLUID LDH 151 U/L Cholesterol, body fluid [[id number]] Collected: 05/29/18 1256 Specimen: Body Fluid from Pleural, Right Updated: 05/29/18 1619 FLUID CHOLESTEROL 56 mg/dL Sputum culture [[id number]] Collected: 05/27/182014 Specimen: Sputum from Sputum Updated: [...] 17. The mitral valve is normal. 18. Urhp-ev-smabc ate eccentric mitral regurgitation is present. 19. [...] anemia of chronic disease who went to [facility] with increasing shortness of breath due to acute congestive heart failure Acute systolic congestive heart failure with Pleural Effusion: Admitted with acute systolic congestive heart failure with bilateral pleural effusion stat us post thoracentesis 2. Her breathing has improved. She is talking to me appropriately. N ot in any kind of distress. healthcare advisory services manager to initiate the discharge plan. [...] MD, FACP 05/31/2018 9:42 AM Dictation software, Omnidrive, used which may contain error for similar sounding words even af ter review. Personal communication requested for any clarification. Portions of this chart may have been copied from previous notes for continuity of care purp Darell Segundo MD - 05/30/2018 9:09 AM PDTFormatting of this note may be different from pierre coleman. [facility] Service: Hospitalist Progress Note Pt: Dara Louise AGE/SEX: 23 y.o. female ROOM: 4441/4441-1 : 1995 PCP: TIEN NICHOLSON ADMIT DATE: 05/26/2018 TODAY'S DATE: 05/30/2018 Hospital Day/Hospital Course: LOS: [address] Belcher 23-year-old female with past medical history of end-stage renal disease on hemodialysis Mon, hypertension, anemia of chronic disease who went to [facility] with increasing shortness of breath [...] Component Value Units Date/Time Culture, Body Fluid [[id number]] Collected: 05/26/18 1412 Specimen: Body Fluid from Pleural Fluid Updated: 05/30/18 0733 Specimen Description PLEURAL FLUID GRAM STAIN WBC'S SEEN GRAM STAIN NO ORGANISMS SEEN GRAM STAIN STAIN PERFORMED ON CYTOSPIN CULTURE NO GROWTH 4 DAYS Culture, Body Fluid [[id number]] Collected: 05/26/18 1513 Specimen: Other from Ascites Fluid Updated: 05/30/18 0732 Specimen Description ASCITES FLUID GRAM STAIN STAIN PERFORMED ON CYTOSPIN GRAM STAIN WBC'S SEEN GRAM STAIN NO EPITHELIAL CELLS SEEN GRAM STAIN NO ORGANISMS SEEN CULTURE NO GROWTH 4 DAYS Gram stain [[id number]] Collected: 05/29/18 1256 Specimen: Sputum from Thoracic Fluid Updated: 05/29/18 3333 Specimen Description THORACIC FLUID CULTURE 1+ WBC'S SEEN NO ORGANISMS SEEN Lactate dehydrogenase, body fluid [[id number]] Collected: 05/29/18 1256 Specimen: Body Fluid from Pleural, Right Updated: 05/29/18 1619 FLUID LDH 151 U/L Cholesterol, body fluid [[id number]] Collected: 05/29/18 1256 Specimen: Body Fluid from Pleural, Right Updated: 05/29/18 1619 FLUID CHOLESTEROL 56 mg/dL Sputum culture [[id number]] Collected: 05/27/182014 Specimen: Sputum from Sputum Updated: [...] 17. The mitral valve is normal. 18. Fsyg-am-azylc ate eccentric mitral regurgitation is present. 19. [...] anemia of chronic disease who went to [facility] with increasing shortness of breath [...] MD, FACP 05/30/2018 9:10 AM Dictation software, Omnidrive, used which may contain error for similar sounding words even af ter review. Personal communication requested for any clarification. Portions of this chart may have been copied from previous notes for continuity of care purp Carolina Camarillo, - 05/29/2018 7:56 PM PDTFormatting of this note may be different from th e original. [facility] Service: Cardiology Progress Note Hospital [...] Hospitalist Progress Note Dara Louise 23 y.o. [id number] 4441/[id number] female [facility] Day: LOS: 3 days Patient Summary: 23-year-old female with past medical history of end-stage renal dis ease on hemodialysis Monday, hypertension, anemia of chronic disease who we nt to [facility] with increasing shortness of breath found [...] Value Units Date/Time Lactate dehydrogenase, body fluid [[id number]] Collected: 05/29/18 1256 Specimen: Body Fluid from Pleural, Right Updated: 05/29/18 1315 Cholesterol, body fluid [[id number]] Collected: 05/29/18 1256 Specimen: Body Fluid from Pleural, Right Updated: 05/29/18 1315 Gram stain [[id number]] Collected: 05/29/18 1256 Specimen: Sputum from OTHR-w source desc (F6) Updated: 05/29/18 1309 Sputum culture [[id number]] Collected: 05/27/182014 Specimen: Sputum from Sputum Updated: 05/29/18 0947 Specimen Description SPUTUM GRAM STAIN LESS THAN 10 WBCS/LPF GRAM STAIN LESS THAN 10 SEC/LPF GRAM STAIN NO ORGANISMS SEEN CULTURE 1+ NORMAL UPPER RESPIRATORY ALESSANDRO HIV 1/2 Ab reflex [[id number]] Collected: 05/28/18 1236 Specimen: Blood Updated: 05/29/18 0942 HIV1/HIV2 NON REACTIVE Protime-INR [[id number]] Collected: 05/29/18 0852 Specimen: Blood Updated: 05/29/18 0940 INR 1.5 APTT [[id number]] Collected: 05/29/1852 Specimen: Blood Updated: 05/29/1840 APTT 29 seconds Culture, Body Fluid [[id number]] Collected: 05/26/18 1513 Specimen: Other from Ascites Fluid Updated: 05/29/18 0920 Specimen Description ASCITES FLUID GRAM STAIN STAIN PERFORMED ON CYTOSPIN GRAM STAIN WBC'S SEEN GRAM STAIN NO EPITHELIAL CELLS SEEN GRAM STAIN NO ORGANISMS SEEN CULTURE NO GROWTH 3 DAYS Culture, Body Fluid [[id number]] Collected: 05/26/18 1412 Specimen: Body Fluid from Pleural Fluid Updated: 05/29/18 0918 Specimen Description PLEURAL FLUID CULTURE NO GROWTH 3 DAYS Comprehensive metabolic panel [[id number]] (Abnormal) Collected: 05/29/18 0457 Specimen: Blood Updated: [...] mL/min/1.73m2 CBC W/Auto Diff (Reflex to Manual) [[id number]] (Abnormal) Collected: 05/29/18 0457 Specimen: Blood Updated: [...] 0.05 K/uL MORPHOLOGY 2+ hCG, serum, qualitative [[id number]] Collected: 05/28/18922 Specimen: Blood Updated: 05/28/18 1950 TEST,SERUM NEGATIVE C-reactive protein [[id number]] (Abnormal) Collected: 05/28/18922 Specimen: Blood Updated: 05/28/18 1941 CRP 5.1 (H) mg/dL Sedimentation rate, automated [[id number]] Collected: 05/28/18922 Specimen: Blood Updated: 05/28/18 1734 ESR 2 mm/Hr Hepatitis panel,acute [[id number]] Collected: 05/28/18 1236 Specimen: Blood Updated: 05/28/18 1650 HAV AB,IGM NON REACTIVE HEP B SURFACE AG NON REACTIVE ANTI HEP B CORE,IGM NON REACTIVE HEPATITIS C NON REACTIVE HEPATITIS INTERP No serologic evidence of HAV, HBV, or HCV infection. Troponin I [[id number]] Collected: 05/28/18922 Specimen: Blood Updated: 05/28/18 143 TROPONIN I 0.034 ng/mL Troponin I [[id number]] Collected: 05/28/18 1359 Specimen: Blood Updated: 05/28/18 1437 TROPONIN I 0.037 ng/mL Renal function panel [[id number]] (Abnormal) Collected: 05/28/18 1209 Specimen: Blood from Blood Updated: 05/28/18 1302 SODIUM 141 mmol/L POTASSIUM 4.3 mmol/L CHLORIDE 101 mmol/L CO2 29 mmol/L ANION GAP AGAP 15 mmol/L GLUCOSE 78 mg/dL BUN 43 (H) mg/dL CREATININE 7.97 (H) mg/dL CALCIUM 9.1 mg/dL Albumin 3.6 g/dL PHOSPHORUS 6.3 (H) mg/dL EGFR 6 (L) mL/min/1.73m2 CBC W/Auto Diff (Reflex to Manual) [[id number]] (Abnormal) Collected: 05/28/18922 Specimen: Blood Updated: 05/28/18 [...] 0.05 K/uL MORPHOLOGY 1+ Comprehensive metabolic panel [[id number]] (Abnormal) Collected: 05/28/18922 Specimen: Blood Updated: 05/28/181209 [...] (H) U/L EGFR 6 (L) mL/min/1.73m2 TSH [[id number]] Collected: 05/28/18922 Specimen: Blood Updated: 05/28/181209 TSH 1.270 uIU/mL Pathologist consult [[id number]] Collected: 05/26/18 1412 Updated: 05/28/18 1113 Pathologist Consult -- Hepatitis panel, chronic [[id number]] (Abnormal) Collected: 05/27/181757 Updated: 05/27/182030 Hep A Total Ab REACTIVE (A) HEP B SURFACE AG NON REACTIVE HEP B CORE AB,TOTAL NON REACTIVE HEP B SURFACE ANTIBODY 3.27 (H) IV HEPATITIS C NON REACTIVE HEPATITIS INTERP Current or past HAV infection. Past HBV infection or vaccination. No ser ologic evidence of HCV infection. CBC w/auto diff (reflex to manual) [[id number]] (Abnormal) Collected: 05/27/18424 Specimen: Blood Updated: 05/27/18710 [...] K/uL MORPHOLOGY 2+ Platelet Estimate DECREASED Phosphorus [[id number]] (Abnormal) Collected: 05/27/18424 Specimen: Blood Updated: 05/27/18628 PHOSPHORUS 8.0 (H) mg/dL Basic Metabolic Panel [[id number]] (Abnormal) Collected: 05/27/18424 Specimen: Blood Updated: 05/27/18628 SODIUM 135 mmol/L POTASSIUM 5.9 (H) mmol/L CHLORIDE 96 (L) mmol/L CO2 25 mmol/L ANION GAP AGAP 20 mmol/L GLUCOSE 74 mg/dL BUN 51 (H) mg/dL CREATININE 9.2 (H) mg/dL BUN/CREAT 6 CALCIUM 9.4 mg/dL EGFR 5 (L) mL/min/1.73m2 Magnesium [[id number]] (Abnormal) Collected: 05/27/18424 Specimen: Blood Updated: 03/24/19 0629 MAGNESIUM 2.7 (H) mg/dL Brain natriuretic peptide [[id number]] (Abnormal) Collected: 05/27/18 0425 Specimen: Blood Updated: 05/27/18 0546 BRAIN NATRIURETIC PEPTIDE 1,153.92 (H) pg/mL Respiratory Filmarray [[id number]] (Abnormal) Collected: 05/26/18 180 Specimen: Nasopharynx/Oropharynx Updated: [...] performed by Molecular Methodology MRSA by PCR [[id number]] Collected: 05/26/181805 Specimen: Nasopharyngeal from Nares(Nose) Updated: 05/26/182025 SOURCE NARES(NOSE) MRSA PCR NEGATIVE Procalcitonin [[id number]] (Abnormal) Collected: 05/26/18 1727 Updated: 05/26/18 1839 PROCALCITONIN 0.76 (H) ng/mL Albumin, Body Fluid [[id number]] Collected: 05/26/181411 Specimen: Body Fluid from Lung, Right Lower Lobe Updated: 05/26/181728 FLUID ALBUMIN 2.3 g/dL Total Protein, Body Fluid [[id number]] Collected: 05/26/18 141 Specimen: Body Fluid from Lung, Right Lower Lobe Updated: 05/26/18 172 FLUID TOTAL PROTEIN 4.2 g/dL FLUID TP SOURCE PLEURAL FLUID Cell count, Body Fluid [[id number]] Collected: 05/26/181411 Specimen: Body Fluid from Lung, Right Lower Lobe Updated: 05/26/181707 FLUID TYPE PLEURAL FLUID COLOR SAMMIE APPEARANCE CLOUDY RBC'S 3,000 /mm3 TOTAL NUCLEATED CELLS 253 /mm3 NEUTROPHILS 22 % LYMPHOCYTES 8 % MONOCYTES/MACROPHAGES 65 % Mesothelial Cells 5 % CELLS COUNTED 100 pH, Body Fluid [[id number]] Collected: 05/26/18 1412 Specimen: Body Fluid from [...] 17. The mitral valve is normal. 18. Buyx-zc-xhuoyrsw eccentric mitral regurgitation i s present. 19. [...] mitral valve is normal. Mitral Kait ve: Quxw-hj-oryhwhtt eccentric mitral regurgitation is present. Tricuspid Valve: [...] maxP.08 mmHg TR Vmax: 2.7 4 m/s Physician Neonatology: MOO Authenticated by: Robel Yusuf MD Report [...] 17. The mitral valve is normal. 18. Lhrq-wh-rtiab ate eccentric mitral regurgitation is present. 19. [...] this note may be different from e [facility]. Hospital Problem List: Active Problems: ESRD on [...] put on "an antibiotic" for pneumonia at [facility] ED. Was throwing up & could [...] the prelim submitted orders, MWF No acute DCS ENGINEER indication ESTEFANY as indicated with HD Protein [...] Hospitalist Progress Note Dara Louise 23 y.o. [id number] female [facility] Day: LOS: 2 days Patient Summary: 23-year-old female with past medical history of end-stage renal dis ease on hemodialysis Monday, hypertension, anemia of chronic disease who we nt to [facility] with increasing shortness of breath found [...] Component Value Units Date/Time Culture, Body Fluid [[id number]] Collected: 05/26/18 1513 Specimen: Other from Ascites Fluid Updated: 05/28/18 122 Specimen Description ASCITES FLUID GRAM STAIN STAIN PERFORMED ON CYTOSPIN GRAM STAIN WBC'S SEEN GRAM STAIN NO EPITHELIAL CELLS SEEN GRAM STAIN NO ORGANISMS SEEN CULTURE NO GROWTH 2 DAYS Culture, Body Fluid [[id number]] Collected: 05/26/18 141 Specimen: Body Fluid from Pleural Fluid Updated: 05/28/18 122 Specimen Description PLEURAL FLUID CULTURE NO GROWTH 2 DAYS Comprehensive metabolic panel [[id number]] (Abnormal) Collected: 05/28/18922 Specimen: Blood Updated: 05/28/181209 [...] (H) U/L EGFR 6 (L) mL/min/1.73m2 TSH [[id number]] Collected: 05/28/18922 Specimen: Blood Updated: 05/28/18 1210 TSH 1.270 uIU/mL Pathologist consult [[id number]] Collected: 05/26/181411 Updated: 05/28/18 1113 Pathologist Consult -- Troponin I [[id number]] Collected: 05/28/18922 Specimen: Blood Updated: 05/28/18 1055 CBC W/Auto Diff (Reflex to Manual) [[id number]] Collected: 05/28/18922 Specimen: Blood Updated: 05/28/18938 Sputum culture [[id number]] Collected: 05/27/182014 Specimen: Sputum from Sputum Updated: 05/28/18902 Specimen Description SPUTUM GRAM STAIN LESS THAN 10 WBCS/LPF GRAM STAIN LESS THAN 10 SEC/LPF GRAM STAIN NO ORGANISMS SEEN CULTURE CULTURE IN PROGRESS Hepatitis panel, chronic [[id number]] (Abnormal) Collected: 05/27/181757 Updated: 05/27/182030 Hep A Total Ab REACTIVE (A) HEP B SURFACE AG NON REACTIVE HEP B CORE AB,TOTAL NON REACTIVE HEP B SURFACE ANTIBODY 3.27 (H) IV HEPATITIS C NON REACTIVE HEPATITIS INTERP Current or past HAV infection. Past HBV infection or vaccination. No ser ologic evidence of HCV infection. CBC w/auto diff (reflex to manual) [[id number]] (Abnormal) Collected: 05/27/18424 Specimen: Blood Updated: 05/27/18710 [...] K/uL MORPHOLOGY 2+ Platelet Estimate DECREASED Phosphorus [[id number]] (Abnormal) Collected: 05/27/18424 Specimen: Blood Updated: 05/27/18628 PHOSPHORUS 8.0 (H) mg/dL Basic Metabolic Panel [[id number]] (Abnormal) Collected: 05/27/18424 Specimen: Blood Updated: 05/27/18628 SODIUM 135 mmol/L POTASSIUM 5.9 (H) mmol/L CHLORIDE 96 (L) mmol/L CO2 25 mmol/L ANION GAP AGAP 20 mmol/L GLUCOSE 74 mg/dL BUN 51 (H) mg/dL CREATININE 9.2 (H) mg/dL BUN/CREAT 6 CALCIUM 9.4 mg/dL EGFR 5 (L) mL/min/1.73m2 Magnesium [[id number]] (Abnormal) Collected: 05/27/18424 Specimen: Blood Updated: 05/27/18628 MAGNESIUM 2.7 (H) mg/dL Brain natriuretic peptide [[id number]] (Abnormal) Collected: 03/24/19 0425 Specimen: Blood Updated: 05/27/18 0546 BRAIN NATRIURETIC PEPTIDE 1,153.92 (H) pg/mL Respiratory Filmarray [[id number]] (Abnormal) Collected: 05/26/181805 Specimen: Nasopharynx/Oropharynx Updated: 05/26/182141 [...] performed by Molecular Methodology MRSA by PCR [[id number]] Collected: 05/26/181805 Specimen: Nasopharyngeal from Nares(Nose) Updated: 05/26/182025 SOURCE NARES(NOSE) MRSA PCR NEGATIVE Procalcitonin [[id number]] (Abnormal) Collected: 05/26/181726 Updated: 05/26/18 1839 PROCALCITONIN 0.76 (H) ng/mL Albumin, Body Fluid [[id number]] Collected: 05/26/18 141 Specimen: Body Fluid from Lung, Right Lower Lobe Updated: 05/26/18 172 FLUID ALBUMIN 2.3 g/dL Total Protein, Body Fluid [[id number]] Collected: 05/26/18 141 Specimen: Body Fluid from Lung, Right Lower Lobe Updated: 05/26/18 172 FLUID TOTAL PROTEIN 4.2 g/dL FLUID TP SOURCE PLEURAL FLUID Cell count, Body Fluid [[id number]] Collected: 05/26/18 141 Specimen: Body Fluid from Lung, Right Lower Lobe Updated: 05/26/18 1708 FLUID TYPE PLEURAL FLUID COLOR SAMMIE APPEARANCE CLOUDY RBC'S 3,000 /mm3 TOTAL NUCLEATED CELLS 253 /mm3 NEUTROPHILS 22 % LYMPHOCYTES 8 % MONOCYTES/MACROPHAGES 65 % Mesothelial Cells 5 % CELLS COUNTED 100 pH, Body Fluid [[id number]] Collected: 05/26/18 1412 Specimen: Body Fluid from Lung, Right Lower Lobe Updated: 05/26/18 1508 FLUID PH 7.45 Procalcitonin [[id number]] (Abnormal) Collected: 05/26/181213 Updated: 05/26/18 1330 PROCALCITONIN 0.56 (H) ng/mL Cardiac Panel [[id number]] (Abnormal) Collected: 05/26/181213 Updated: 05/26/18 1312 WBC [...] ng/mL CK-MB Index 2.7 Brain natriuretic peptide [[id number]] (Abnormal) Collected: 05/26/181213 Updated: 05/26/18 1254 BRAIN [...] radiologist report and is used for image [employer] only Echo Cardiac Adult Complete Result Date: [...] 17. The mitral valve is normal. 18. Fszi-vl-fvcdzlpq eccentric mitral regurgitation i s present. 19. [...] mitral valve is normal. Mitral Kait ve: Pldp-gw-osxyctih eccentric mitral regurgitation is present. Tricuspid Valve: [...] maxP.08 mmHg TR Vmax: 2.7 4 m/s Physician Neonatology: MOO Authenticated by: Robel Yusuf MD Report [...] 17. The mitral valve is normal. 18. Ighg-zn-sfpki ate eccentric mitral regurgitation is present. 19. [...] Hospitalist Progress Note Dara Louise 23 y.o. [id number] female [facility] Day: LOS: 1 day Patient Summary: 23-year-old female with past medical history of end-stage renal dis ease on hemodialysis Monday, hypertension, anemia of chronic disease who we nt to [facility] with increasing shortness of breath found [...] Date/Time CBC w/auto diff (reflex to manual) [[id number]] (Abnormal) Collected: 05/27/18424 Specimen: Blood Updated: 05/27/18710 [...] K/uL MORPHOLOGY 2+ Platelet Estimate DECREASED Phosphorus [[id number]] (Abnormal) Collected: 05/27/18424 Specimen: Blood Updated: 05/27/18628 PHOSPHORUS 8.0 (H) mg/dL Basic Metabolic Panel [[id number]] (Abnormal) Collected: 05/27/18424 Specimen: Blood Updated: 05/27/18628 SODIUM 135 mmol/L POTASSIUM 5.9 (H) mmol/L CHLORIDE 96 (L) mmol/L CO2 25 mmol/L ANION GAP AGAP 20 mmol/L GLUCOSE 74 mg/dL BUN 51 (H) mg/dL CREATININE 9.2 (H) mg/dL BUN/CREAT 6 CALCIUM 9.4 mg/dL EGFR 5 (L) mL/min/1.73m2 Magnesium [[id number]] (Abnormal) Collected: 05/27/18424 Specimen: Blood Updated: 05/27/18628 MAGNESIUM 2.7 (H) mg/dL Brain natriuretic peptide [[id number]] (Abnormal) Collected: 05/27/18424 Specimen: Blood Updated: 05/27/18 0546 BRAIN NATRIURETIC PEPTIDE 1,153.92 (H) pg/mL Respiratory Filmarray [[id number]] (Abnormal) Collected: 05/26/18 180 Specimen: Nasopharynx/Oropharynx Updated: [...] performed by Molecular Methodology MRSA by PCR [[id number]] Collected: 05/26/181805 Specimen: Nasopharyngeal from Nares(Nose) Updated: 05/26/182025 SOURCE NARES(NOSE) MRSA PCR NEGATIVE Procalcitonin [[id number]] (Abnormal) Collected: 05/26/18 1727 Updated: 05/26/18 1839 PROCALCITONIN 0.76 (H) ng/mL Culture, Body Fluid [[id number]] Collected: 05/26/18 141 Specimen: Body Fluid from Pleural Fluid Updated: 05/26/18 1811 Pathologist consult [[id number]] Collected: 05/26/18 141 Updated: 05/26/18 1742 Albumin, Body Fluid [[id number]] Collected: 05/26/18 141 Specimen: Body Fluid from Lung, Right Lower Lobe Updated: 05/26/18 1729 FLUID ALBUMIN 2.3 g/dL Total Protein, Body Fluid [[id number]] Collected: 05/26/18 141 Specimen: Body Fluid from Lung, Right Lower Lobe Updated: 05/26/18 1729 FLUID TOTAL PROTEIN 4.2 g/dL FLUID TP SOURCE PLEURAL FLUID Cell count, Body Fluid [[id number]] Collected: 05/26/18 141 Specimen: Body Fluid from Lung, Right Lower Lobe Updated: 05/26/18 1708 FLUID TYPE PLEURAL FLUID COLOR SAMMIE APPEARANCE CLOUDY RBC'S 3,000 /mm3 TOTAL NUCLEATED CELLS 253 /mm3 NEUTROPHILS 22 % LYMPHOCYTES 8 % MONOCYTES/MACROPHAGES 65 % Mesothelial Cells 5 % CELLS COUNTED 100 Culture, Body Fluid [[id number]] Collected: 05/26/18 1513 Specimen: Other from Ascites Fluid Updated: 05/26/18 1631 Specimen Description ASCITES FLUID GRAM STAIN STAIN PERFORMED ON CYTOSPIN GRAM STAIN WBC'S SEEN GRAM STAIN NO EPITHELIAL CELLS SEEN GRAM STAIN NO ORGANISMS SEEN CULTURE PENDING pH, Body Fluid [[id number]] Collected: 05/26/18 1412 Specimen: Body Fluid from Lung, Right Lower Lobe Updated: 05/26/18 1508 FLUID PH 7.45 Procalcitonin [[id number]] (Abnormal) Collected: 05/26/18 1214 Updated: 05/26/18 1330 PROCALCITONIN 0.56 (H) ng/mL Cardiac Panel [[id number]] (Abnormal) Collected: 05/26/18 1214 Updated: 05/26/18 1312 [...] ng/mL CK-MB Index 2.7 Brain natriuretic peptide [[id number]] (Abnormal) Collected: 05/26/18 1214 Updated: 05/26/18 1254 [...] or emphysema. Si gned by: MD Debbie, Le Sign Date/Time: 05/26/2018 4:55 PM X-ray Chest 1 View Result Date: 05/26/2018 This is a non-reportable procedure without a radiologist report and is used for image [employer] only PROBLEM LIST Active Problems: ESRD on [...] heparin ANTHONY BELCHER MD 05/27/2018 Jae Gutierres, [facility] - 05/26/2018 6:05 PM PDTRenal Dosing Monitoring: [...] [address] | | | | | [facility], | | | | | [place] [address] | | | + + + + + + + | Specimen | + + | Blood | + + + + + + + | Performing | Address | City/State/Zipcode | Phone Number | | Organization | | | | + + + + + | [facility] | [address] [facility] | [place] [address] | [phone] | | LABORATORY | [address] | | [...] performed | | | | | at [facility], [address] | | | | | [facility], | | | | | [place] [address] | | | | |Testing performed at [facility], [address] [facility], [place] [address] | | | | | | | | + + + + + + + | Specimen | + + | Blood | + + + + + + + | Performing | Address | City/State/Zipcode | Phone Number | | Organization | | | | + + + + + | [facility] | [address] | [place] [address] | [phone] | | LABORATORY | Blvd. | | [...] | | | | | performed at [facility], [address] | | | | | [facility], | | | | | [place] [address] | | | + + + + + + + | Specimen | + + | Blood | + + + + + + + | Performing | Address | City/State/Zipcode | Phone Number | | Organization | | | | + + + + + | [facility] | [address] | [place] [address] | [phone] | | LABORATORY | Blvd. | | [...] performed | | | | | at [facility], [address] | | | | | [facility], | | | | | [place] [address] | | | | |Testing performed at [facility], [address] [facility], [place] [address] | | | | | | | | + + + + + + + | Specimen | + + | Blood | + + + + + + + | Performing | Address | City/State/Zipcode | Phone Number | | Organization | | | | + + + + + | [facility] | [address] | [place] [address] | [phone] | | LABORATORY | Blvd. | | [...] | | systolic CHF (congestive heart failure) ([facility]) Transaminitis | | | The patient is [...] | | | antibiotic" for pneumonia at [facility]. Was throwing up & could [...] | | | | | performed at [facility], [address] | | | | | [address], | | | | | [place] [address] | | | + + + + + + + | Specimen | + + | Blood | + + + + + + + | Performing | Address | City/State/Zipcode | Phone Number | | Organization | | | | + + + + + | [facility] | [address] | [place] [address] | [phone] | | LABORATORY | Blvd. | | [...] performed | | | | | at [facility], [address] | | | | | [employer], | | | | | [place] [address] | | | | |Testing performed at [facility], [address] [employer], [place] [address] | | | | | | | | + + + + + + + | Specimen | + + | Blood | + + + + + + + | Performing | Address | City/State/Zipcode | Phone Number | | Organization | | | | + + + + + | [facility] | [address] | [place] [address] | [phone] | | LABORATORY | Blvd. | | [...] | + + + + + | [facility] | [address] | [place] [address] | | + + + + + Cholesterol, body fluid (05/29/2018 12:56 PM) + + + + + | Component | Value | Ref Range | Performed At | + + + + + | FLUID CHOLESTEROL | 56Comment: This is not a | mg/dL | [facility] | | | vendor specialist validated | | LABORATORY | | | sample type for this | | | | | method. No reference | | | | | ranges have been | | | | | established.Testing | | | | | performed at [facility], [address] | | | | | [facility], | | | | | [place] [address] | | | + + + + + + + | Specimen | + + | Body Fluid - | | Pleural, Right | + + + + + + + | Performing | Address | City/State/Zipcode | Phone Number | | Organization | | | | + + + + + | [facility] | [address] | [place] [address] | [phone] | | LABORATORY | Blvd. | | | + + + + + Lactate dehydrogenase, body fluid (05/29/2018 12:56 PM) + + + + + | Component | Value | Ref Range | Performed At | + + + + + | FLUID LDH | 151Comment: This is not | U/L | [facility] | | | a vendor specialist validated | | LABORATORY | | | sample type for this | | | | | method. No reference | | | | | ranges have been | | | | | established.Testing | | | | | performed at [facility], [address] | | | | | [facility], | | | | | [place] [address] | | | + + + + + + + | Specimen | + + | Body Fluid - | | Pleural, Right | + + + + + + + | Performing | Address | City/State/Zipcode | Phone Number | | Organization | | | | + + + + + | [facility] | [address] | [place] [address] | [phone] | | LABORATORY | Blvd. | | [...] | + + + + + | [facility] | [address] | [place] [address] | [phone] | | LABORATORY | [address] | | [...] | | space is punctured with an 8-Syrian thoracentesis catheter. Fluid is | | | [...] the pleural space is punctured with an 8-Syrian | | thoracentesis catheter. Fluid is aspirated [...] | + + + + + | [facility] | [address] [facility] | [place] [address] | | + + + + + APTT (05/29/2018 8:52 AM) + + + + + | Component | Value | Ref Range | Performed At | + + + + + | APTT | 29Comment: Testing | 23 - 32 seconds | [facility] | | | performed at [facility];[address] | | | [address];[place] | | | | | [address] | | | + + + + + + + | Specimen | + + | Blood | + + + + + + + | Performing | Address | City/State/Zipcode | Phone Number | | Organization | | | | + + + + + | [facility] | [address] | [place] [address] | | + + + + + Elizabethime-INR (05/29/2018 8:52 AM) + + + + + | Component | Value | Ref Range | Performed At | + + + + + | INR | 1.5Comment: REFERENCE | | [facility] | | | RANGE:0.9 [...] performed at [facility] | | | | | [address];[place], [place] | | | | | [address] | | | + + + + + + + | Specimen | + + | Blood | + + + + + + + | Performing | Address | City/State/Zipcode | Phone Number | | Organization | | | | + + + + + | [facility] | [address] | [place] [address] | | + + + + + [...] SPECIMEN | 65 - 99 mg/dL | [facility] | | | SLIGHTLY HEMOLYZED | | LABORATORY | + + + + + | BUN | 25 | 8 - 25 mg/dL | [facility] | | | | | LABORATORY | + + + + + | CREATININE | 6.0 (H)Comment: SPECIMEN | 0.50 - 1.00 mg/dL | [facility] | | | SLIGHTLY HEMOLYZED | | LABORATORY | + + + + + | BUN/CREAT | 4 | | [facility] | | | | | LABORATORY | + + + + + | CALCIUM | 9.5 | 8.5 - 10.5 mg/dL | [facility] | | | | | LABORATORY | + + + + + | TOTAL PROTEIN | 6.7 | 6.3 - 8.2 g/dL | [facility] | | | | | LABORATORY | [...] the | | | | | MDRD IDNV traceable | | | | | equation.Testing | | | | | performed at [facility], [address] | | | | | [facility], | | | | | [place] [address] | | | + + + + + + + | Specimen | + + | Blood | + + + + + + + | Performing | Address | City/State/Zipcode | Phone Number | | Organization | | | | + + + + + | [facility] | [address] | [place] [address] | [phone] | | LABORATORY | Blvd. | | [...] performed | | | | | at [facility], [address] | | | | | [employer], | | | | | [place] [address] | | | | |Testing performed at [facility], [address] [facility] [place] [address] | | | | | | | | + + + + + + + | Specimen | + + | Blood | + + + + + + + | Performing | Address | City/State/Zipcode | Phone Number | | Organization | | | | + + + + + | [facility] | [address] | [place] [address] | [phone] | | LABORATORY | Blvd. | | [...] | + + + + + | [facility] | [address] | [place] [address] | | + + + + + Troponin I (05/28/2018 1:59 PM) + + + + + | Component | Value | Ref Range | Performed At | + + + + + | TROPONIN I | 0.037Comment: 0.04 | 0.00 - 0.04 ng/mL | [facility] | | | ng/mL [...] performed at | | | | | [facility];[address] [facility] | | | | | [facility];[place] [address] | | | + + + + + + + | Specimen | + + | Blood | + + + + + + + | Performing | Address | City/State/Zipcode | Phone Number | | Organization | | | | + + + + + | [facility] | [address] | [place] [address] | | + + + + + [...] | | | | | performed at [facility], [address] | | | | | [facility], | | | | | [place] [address] | | | + + + + + + + | Specimen | + + | Blood | + + + + + + + | Performing | Address | City/State/Zipcode | Phone Number | | Organization | | | | + + + + + | [facility] | [address] [place] [address] | [place] [address] | [phone] | | LABORATORY | [address]. | | [...] performed at | | | | | [facility], [address] [place] [address] | | | | | [place] | | | | | [address] | | | + + + + + + + | Specimen | + + | Blood | + + + + + + + | Performing | Address | City/State/Zipcode | Phone Number | | Organization | | | | + + + + + | [facility] | [address] | [place] [address] | [phone] | | LABORATORY | Blvd. | | [...] 101 | 99 - 109 mmol/L | [facility] | + + + [...] (H) | 0.50 - 1.00 mg/dL | [facility] | + + + + + | CALCIUM | 9.1 | 8.5 - 10.5 mg/dL | [facility] | + + + + + | Albumin | 3.6 | 3.6 - 5.0 g/dL | [facility] | + + + + + | PHOSPHORUS | 6.3 (H) | 2.3 - 4.8 mg/dL | [facility] | + + + + + | EGFR | 6 (L)Comment: GFR <60: | >60 mL/min/1.73m2 | [facility] | | | CHRONIC [...] [facility] [place];[address] | | | | | [address];[place], [place] | | | | | [address] | | | + + + + + + + | Specimen | + + | Blood - Blood | + + + + + + + | Performing | Address | City/State/Zipcode | Phone Number | | Organization | | | | + + + + + | [facility] | [address] | [place] [address] | | + + + + + [...] + + + + | Calculated P [place] | 24 | degrees | [facility] | + + + + + | Calculated R [place] | 24 | degrees | [facility] | + + + + + | Calculated T [place] | 103 | degrees | [facility] [...] | + + + + + | [facility] | [address] | [place] [address] | | + + + + + hCG, serum, qualitative (05/28/2018 9:23 AM) + + + + + | Component | Value | Ref Range | Performed At | + + + + + | TEST,SERUM | NEGATIVEComment: Testing | NEGATIVE | [facility] | | | performed at [facility], [address] | | LABORATORY | | | [address], | | | | | [place] [address] | | | + + + + + + + | Specimen | + + | Blood | + + + + + + + | Performing | Address | City/State/Zipcode | Phone Number | | Organization | | | | + + + + + | [facility] | [address] | [place] [address] | [phone] | | LABORATORY | [address]vd[address] | | | + + + + + C-reactive protein (05/28/2018 9:23 AM) + + + + + | Component | Value | Ref Range | Performed At | + + + + + | CRP | 5.1 (H)Comment: Testing | <0.5 mg/dL | [facility] | | | performed at [facility], [address] | | LABORATORY | | | [facility], | | | | | [place] [address] | | | + + + + + + + | Specimen | + + | Blood | + + + + + + + | Performing | Address | City/State/Zipcode | Phone Number | | Organization | | | | + + + + + | [facility] | [address] | [place] [address] | [phone] | | LABORATORY | [address]vd[address] | | | + + + + + Sedimentation rate, automated (05/28/2018 9:23 AM) + + + + + | Component | Value | Ref Range | Performed At | + + + + + | ESR | 2Comment: Testing | 0 - 20 mm/Hr | [facility] | | | performed at [facility], [address] | | LABORATORY | | | [facility] [address], | | | | | [place] [address] | | | + + + + + + + | Specimen | + + | Blood | + + + + + + + | Performing | Address | City/State/Zipcode | Phone Number | | Organization | | | | + + + + + | [facility] | [address] | [place] [address] | [phone] | | LABORATORY | [address]vd[address] | | | + + + + + TSH (05/28/2018 9:23 AM) + + + + + | Component | Value | Ref Range | Performed At | + + + + + | TSH | 1.270Comment: Testing | 0.450 - 5.100 uIU/mL | [facility] | | | performed at [facility], [address] | | LABORATORY | | | [facility] [address], | | | | | [place] [address] | | | + + + + + + + | Specimen | + + | Blood | + + + + + + + | Performing | Address | City/State/Zipcode | Phone Number | | Organization | | | | + + + + + | [facility] | [address] | [place] [address] | [phone] | | LABORATORY | [address]vd[address] | | | + + + + + Troponin I (05/28/2018 9:23 AM) + + + + + | Component | Value | Ref Range | Performed At | + + + + + | TROPONIN I | 0.034Comment: 0.04 | 0.00 - 0.04 ng/mL | [facility] | | | ng/mL [...] performed at | | | | | [facility];[address] [place] [address] | | | | | [facility];[place] [address] | | | + + + + + + + | Specimen | + + | Blood | + + + + + + + | Performing | Address | City/State/Zipcode | Phone Number | | Organization | | | | + + + + + | [facility] | [address] | [place] [address] | | + + + + + [...] the | | | | | MDRD IDNV traceable | | | | | equation.Testing | | | | | performed at [facility], [address] | | | | | [facility], | | | | | [place] [address] | | | + + + + + + + | Specimen | + + | Blood | + + + + + + + | Performing | Address | City/State/Zipcode | Phone Number | | Organization | | | | + + + + + | [facility] | [address] | [place] [address] | [phone] | | LABORATORY | Blvd. | | [...] performed | | | | | at [facility], [address] | | | | | [facility], | | | | | [place] [address] | | | | |Testing performed at [facility], [address] [facility], [place] [address] | | | | | | | | + + + + + + + | Specimen | + + | Blood | + + + + + + + | Performing | Address | City/State/Zipcode | Phone Number | | Organization | | | | + + + + + | [facility] | [address] | [place] [address] | [phone] | | LABORATORY | [address]vd[address] | | [...] PERFORMING LABORATORY: Technical preparation was performed by [employer] | | | [employer], [address] [place] [address] | | | (Tape Editor: Matt Claudio D.O.; CLIA#: [id number]). | | | Professional interpretation was performed by [employer], | | | [address] [address] | | | (Tape Editor: Daniel Larson M.D.; CLIA#: [id number]).6 | | | Diagnostician: Marie BROOKS ([facility]) [employer] | | | Diagnostician: Anahy Da Silva [...] + + + | [facility] | [address] | [place] [address] | [phone] | | LABORATORY | Blvd. | | [...] performed at | | | | | [facility], [address] [place] [address] | | | | | [place] | | | | | [address] | | | + + + + + + + + + + | Performing | Address | City/State/Zipcode | Phone Number | | Organization | | | | + + + + + | [facility] | [address] [facility] [address] | [place] [address] | [phone] | | LABORATORY | Blvd. | | [...] valve is normal. 18. | | | Tshp-xi-trbtgkpt eccentric mitral regurgitation is present. 19. | [...] DARA LOUISE Date of : 1995 | [facility] | | Performing Physician: Robel [...] valve is normal. 18. | | | Qoyg-qg-aaijwiqp eccentric mitral regurgitation is present. 19. | [...] is | | | normal. Mitral Valve: Nhrk-uw-icapiytf eccentric mitral | | | regurgitation is [...] TR Vmax: 2.74 m/s | | | Physician Neonatology: MOO Authenticated by: Robel Yusuf MD Report | | | Date/Time: 05-27-2018 13:59:57 | | + + + + + | Procedure Note | + + | Sonido Steele In - 05/27/2018 2:00 PM PDT Patient Name: Anders LOUISE of | | : 1995Accession: [id number] Physician: Robel Yusuf | | MD INDICATIONS [...] aortic stenosis.17. The mitral valve is normal.18. Mjau-rm-zhllaybv | | eccentric mitral regurgitation is present.19. [...] | | arch are normal.26. No mass lstkytapoy54. No clot visualizedFINDINGS--------ECG rhythm: | | Sinus [...] The mitral valve is normal. Mitral Valve: Vhwp-wg-jnkhgtyn eccentric mitral | | regurgitation is present.Tricuspid [...] (A-L): 30.43 | | ml/m2LAAs A2C: 20.97 tf9CZAZK A-L A2C: 65.71 mlLALs A2C: 5.68 cmLAAs A4C: 19.94 | | sg7GCNOX A-L A4C: 60.20 mlLALs A4C: 5.60 cmTAPSE: 1.58 cmHR: 79.62 BPMAV maxPG: | | 6.06 mmHgAV meanP.71 mmHgAV Vmax: 1.23 m/Elizabeth Vmean: 0.92 m/Elizabeth VTI: 20.07 | | cmAVA Vmax: 1.74 cm2AVA (VTI): 1.93 [id number] Vmax: 0.00 cm2/m2AVAI (VTI): 0.00 | | [...] The mitral valve is | | normal.18. Zqzx-tu-zmpphkne eccentric mitral regurgitation is present.19. Severe | [...] and aortic arch are normal.26. No mass jrogzvzqcy56. No clot visualized | |LVIDd: 4.99 cm [...] |TR Vmax: 2.74 m/s | | | |Physician Neonatology: MW | |Authenticated by: Robel Yusuf MD [...] The mitral valve is normal. | |18. Jjea-sr-ujpdtyui eccentric mitral regurgitation is present. | |19. [...] | + + + + + | [facility] | [address] | [place] [address] | | + + + + + [...] | + + + + + | [facility] | [address] | [place] [address] | | + + + + + Brain natriuretic peptide (05/27/2018 4:25 AM) + + + + + | Component | Value | Ref Range | Performed At | + + + + + | BRAIN NATRIURETIC | 1,153.92 (H)Comment: | 0 - 100 pg/mL | [facility] | | PEPTIDE | Testing performed at | | | | | [facility];[address] | | | | | [place] [address] | | | + + + + + + + | Specimen | + + | Blood | + + + + + + + | Performing | Address | City/State/Zipcode | Phone Number | | Organization | | | | + + + + + | [facility] | [address] | [place] [address] | | + + + + + Phosphorus (05/27/2018 4:25 AM) + + + + + | Component | Value | Ref Range | Performed At | + + + + + | PHOSPHORUS | 8.0 (H)Comment: Testing | 2.3 - 4.8 mg/dL | [facility] | | | performed at [facility], [address] | | LABORATORY | | | [address], | | | | | [place] [address] | | | + + + + + + + | Specimen | + + | Blood | + + + + + + + | Performing | Address | City/State/Zipcode | Phone Number | | Organization | | | | + + + + + | [facility] | [address] | [place] [address] | [phone] | | LABORATORY | [address] | | | + + + + + Magnesium (05/27/2018 4:25 AM) + + + + + | Component | Value | Ref Range | Performed At | + + + + + | MAGNESIUM | 2.7 (H)Comment: Testing | 1.7 - 2.4 mg/dL | [facility] | | | performed at [facility], [address] | | LABORATORY | | | [address], | | | | | [place] [address] | | | + + + + + + + | Specimen | + + | Blood | + + + + + + + | Performing | Address | City/State/Zipcode | Phone Number | | Organization | | | | + + + + + | [facility] | [address] | [place] [address] | [phone] | | LABORATORY | [address]vd[address] | | [...] (H) | 0.50 - 1.00 mg/dL | [facility] | | | | | LABORATORY | + + + + + | BUN/CREAT | 6 | | [facility] | | | | | LABORATORY | + + + + + | CALCIUM | 9.4 | 8.5 - 10.5 mg/dL | [facility] | | | | | LABORATORY | + + + + + | EGFR | 5 (L)Comment: GFR <60: | >60 mL/min/1.73m2 | [facility] | | | CHRONIC KIDNEY DISEASE, | [...] | | | | | performed at [facility], [address] | | | | | [facility], | | | | | [place] [address] | | | + + + + + + + | Specimen | + + | Blood | + + + + + + + | Performing | Address | City/State/Zipcode | Phone Number | | Organization | | | | + + + + + | [facility] | [address] | [place] [address] | [phone] | | LABORATORY | [address]vd[address] | | | + + + + + CBC w/auto diff (reflex to manual) (05/27/2018 4:25 AM) + + + + + | Component | Value | Ref Range | Performed At | + + + + + | WBC | 6.62 | 3.80 - 11.00 K/uL | [facility] | + + + + + | RBC | 3.48 (L) | 3.70 - 5.10 M/uL | [facility] | + + + + + | HGB | 12.5 | 11.3 - 15.5 g/dL | [facility] | + + + + + | HCT | 37.9 | 34.0 - 46.0 % | [facility] | + + + + [...] 0.05 | 0.00 - 0.10 K/uL | [facility] | + + + + + | MORPHOLOGY | 2+ | | [facility] | | | Comment: | | | | | MACRO | | | | | NORMAL PLT MORPH | | | | | | | | + + + + + | Platelet Estimate | DECREASEDComment: | | [facility] | | | Testing performed at | | | | | [facility];[address] [place] [address] | | | | | Blvd;[place] [address] | | | + + + + + + + | Specimen | + + | Blood | + + + + + + + | Performing | Address | City/State/Zipcode | Phone Number | | Organization | | | | + + + + + | [facility] | [address] | [place] [address] | | + + + + + MRSA by PCR (05/26/2018 6:06 PM) + + + + + | Component | Value | Ref Range | Performed At | + + + + + | SOURCE | NARES(NOSE) | | [facility] | + + + + + | MRSA PCR | NEGATIVEComment: Testing | NEGATIVE | [facility] | | | performed at [facility];[address] | | | | | [address];[place] | | | | | [address] | | | + + + + + + + | Specimen | + + | Nasopharyngeal - | | Nares(Nose) | + + + + + + + | Performing | Address | City/State/Zipcode | Phone Number | | Organization | | | | + + + + + | [facility] | [address] | [place] [address] | | + + + + + [...] at | | | | | [facility], [address] [place] [address] | | | | | [place], [place], [place] | | | | | [address] | | | + + + + + + + | Specimen | + + | Nasopharynx/Orophary | | nx | + + + + + + + | Performing | Address | City/State/Zipcode | Phone Number | | Organization | | | | + + + + + | [facility] | [address] | [place] [address] | [phone] | | LABORATORY | [address] | | | + + + + + PROCALCITONIN (05/26/2018 5:27 PM) + + + + + | Component | Value | Ref Range | Performed At | + + + + + | PROCALCITONIN | 0.76 (H)Comment: | <0.5 ng/mL | [facility] | | | INTERPRETIVE [...] performed | | | | | at [facility];[address] [facility] [address] [facility] | | | | | [place] [address] | | | + + + + + + + + + + | Performing | Address | City/State/Zipcode | Phone Number | | Organization | | | | + + + + + | [facility] | [address] | [place] [address] | | + + + + + [...] | + + + + + | [facility] | [address] | [place] [address] | | + + + + + [...] | + + + + + | [facility] | [address] | [place] [address] | | + + + + + [...] STAIN | STAIN PERFORMED ON | | [facility] | | | CYTOSPIN [...] + + + | [facility] | [address] | [place] [address] | [phone] | | LABORATORY | [place]. | | | + + + + + | [facility] | [address] | [place] [address] | | + + + + + Pathologist consult (05/26/2018 2:12 PM) + + + + + | Component | Value | Ref Range | Performed At | + + + + + | Pathologist Consult | Comment: Review of | | [facility] | | | pleural [...] performed | | | | | at [facility];[address] | | | | | [place] [address] | | | + + + + + + + + + + | Performing | Address | City/State/Zipcode | Phone Number | | Organization | | | | + + + + + | [facility] | [address] | [place] [address] | | + + + + + Total Protein, Body Fluid (05/26/2018 2:12 PM) + + + + + | Component | Value | Ref Range | Performed At | + + + + + | FLUID TOTAL PROTEIN | 4.2Comment: This is not | g/dL | [facility] | | | a vendor specialist validated | | LABORATORY | | | sample type for this | | | | | method. No reference | | | | | ranges have been | | | | | established.Testing | | | | | performed at [facility], [address] | | | | [address], | | | | | [place] [address] | | | + + + + + | FLUID TP SOURCE | PLEURAL FLUIDComment: | | [facility] | | | Testing performed at | | | | | [facility];[address] | | | | | [place] [address] | | | + + + + + + + | Specimen | + + | Body Fluid - Lung, | | Right Lower Lobe | + + + + + + + | Performing | Address | City/State/Zipcode | Phone Number | | Organization | | | | + + + + + | [facility] | [address] | [place] [address] | | + + + + + | [facility] | [address] | [place] [address] | [phone] | | LABORATORY | [address]. | | | + + + + + Albumin, Body Fluid (05/26/2018 2:12 PM) + + + + + | Component | Value | Ref Range | Performed At | + + + + + | FLUID ALBUMIN | 2.3Comment: This is not | g/dL | [facility] | | | a vendor specialist validated | | LABORATORY | | | sample type for this | | | | | method. No reference | | | | | ranges have been | | | | | established.Testing | | | | | performed at [facility], [address] | | | | [facility], | | | | | [place] [address] | | | + + + + + + + | Specimen | + + | Body Fluid - Lung, | | Right Lower Lobe | + + + + + + + | Performing | Address | City/State/Zipcode | Phone Number | | Organization | | | | + + + + + | [facility] | [address] | [place] [address] | [phone] | | LABORATORY | [address] | | | + + + + + pH, Body Fluid (05/26/2018 2:12 PM) + + + + + | Component | Value | Ref Range | Performed At | + + + + + | FLUID PH | 7.45Comment: Testing | | [facility] | | | performed at [facility];[address];[place] | | | | | [address] | | | + + + + + + + | Specimen | + + | Body Fluid - Lung, | | Right Lower Lobe | + + + + + + + | Performing | Address | City/State/Zipcode | Phone Number | | Organization | | | | + + + + + | [facility] | [address] | [place] [address] | | + + + + + [...] + + + | [facility] | [address] | [place] [address] | [phone] | | LABORATORY | [address] | | | + + + + + Cell count, Body Fluid (05/26/2018 2:12 PM) + + + + + | Component | Value | Ref Range | Performed At | + + + + + | FLUID TYPE | PLEURAL FLUID | | [facility] | + + + + + | COLOR | SAMMIE | | [facility] | + + + + + | APPEARANCE | CLOUDY | | [facility] | + + + + + | RBC'S | 3,000Comment: CORRECTED | /mm3 | [facility] | | | RESULTS CALLED TO | | | | | MARIA LUISA IN ED AT 1705 | | | | | BY LGJCORRECTED ON 05/26 | | | | | AT 1702: PREVIOUSLY | | | | | REPORTED <[id number] | | | + + + + + | TOTAL NUCLEATED | 253Comment: CORRECTED | /mm3 | [facility] | | CELLS | [...] Mesothelial Cells | 5 | % | [facility] | + + + + + | CELLS COUNTED | 100Comment: Testing | | [facility] | | | performed at [facility];[address] | | | | | [address];[place] | | | | | [address] | | | + + + + + + + | Specimen | + + | Body Fluid - Lung, | | Right Lower Lobe | + + + + + + + | Performing | Address | City/State/Zipcode | Phone Number | | Organization | | | | + + + + + | [facility] | [address] | [place] [address] | | + + + + + PROCALCITONIN (05/26/2018 12:14 PM) + + + + + | Component | Value | Ref Range | Performed At | + + + + + | PROCALCITONIN | 0.56 (H)Comment: | <0.5 ng/mL | [facility] | | | INTERPRETIVE [...] performed | | | | | at [facility];[address] [place] [address] | | | | | [facility];[place] [address] | | | + + + + + + + + + + | Performing | Address | City/State/Zipcode | Phone Number | | Organization | | | | + + + + + | [facility] | [address] | [place] [address] | | + + + + + Brain natriuretic peptide (05/26/2018 12:14 PM) + + + + + | Component | Value | Ref Range | Performed At | + + + + + | BRAIN NATRIURETIC | 1,728.24 (H)Comment: | 0 - 100 pg/mL | [facility] | | PEPTIDE | Testing performed at | | | | | [facility];[address] | | | | | [place] [address] | | | + + + + + + + + + + | Performing | Address | City/State/Zipcode | Phone Number | | Organization | | | | + + + + + | [facility] | [address] | [place] [address] | | + + + + + Cardiac Panel (05/26/2018 12:14 PM) + + + + + | Component | Value | Ref Range | Performed At | + + + + + | WBC | 5.73 | 3.80 - 11.00 K/uL | [facility] | + + + + + | RBC | 3.32 (L) | 3.70 - 5.10 M/uL | [facility] | + + + + + | HGB | 12.1 | 11.3 - 15.5 g/dL | [facility] | + + + + + | HCT | 36.1 | 34.0 - 46.0 % | [facility] | + + + + + | MCV | 108.7 (H) | 80.0 - 100.0 fl | [facility] | + + + + + | MCH | 36.3 (H) | 27.0 - 34.0 pg | [facility] | + + + + + | MCHC | 33.4 | 32.0 - 35.5 g/dL | [facility] | + + + + + | RDW SD | 59.9 (H) | 37 - 53 fl | [facility] | + + + + + | PLT | 151 | 150 - 400 K/uL | [facility] | + + + + + | MPV | 10.1 | fl | [facility] | + + + + + [...] 0.06 | 0.00 - 0.10 K/uL | [facility] | + + + [...] (H) | 8 - 25 mg/dL | [facility] | + + + + + [...] 2.9 | 1.3 - 4.9 g/dL | [facility] | + + + + + | A/G | 1.5 | 1.0 - 2.4 | [facility] | + + + + + | TBIL | 1.1 | 0.1 - 1.5 mg/dL | [facility] | + + + + + | ALK PHOS | 120 (H) | 35 - 115 U/L | [facility] | + + + + + | AST | 82 (H) | 10 - 45 U/L | [facility] | + + + + + | ALT | 64 | 10 - 65 U/L | [facility] | + + + + + | EGFR | 6 (L)Comment: GFR <60: | >60 mL/min/1.73m2 | [facility] | | | CHRONIC [...] (H) | 30 - 240 U/L | [facility] | + + + + + | INR | 1.6Comment: REFERENCE | | [facility] | | | RANGE:0.9 [...] 29 | 23 - 32 seconds | [facility] | + + + + + | MMB | 7.8 (H) | 0.5 - 3.6 ng/mL | [facility] | + + + + + | CK-MB Index | 2.7Comment: CK INDEX | | [facility] | | | INTERPRETATION: [...] [facility] [place];[address] | | | | | [address];[place] | | | | | [address] | | | + + + + + + + + + + | Performing | Address | City/State/Zipcode | Phone Number | | Organization | | | | + + + + + | [facility] | [address] | [place] [address] | | + + + + + [...] space: 4th Puncture | | | method: Iphd-elr-fmjdxb catheter Ultrasound guidance: yes | | | [...] perforation, infection and | | | pain [place] protocol: Imaging studies available: yes | | [...] Performed At | + + + | [place] [id number] [id number] Criteria Met 2 in 2 | ED [...] Count (12 mo.) Facility Visits Low Acuity [facility] | | | [facility] 1 0 [facility] 5 0 Total 6 0 | | | Note: Visits indicate total known visits. Medicaid Low Acuity Dx | | | are the number of primary diagnoses on the Medicaid's Low Acuity dx | | | list. Recent Emergency Department Visit Summary Date Facility | | | City State Type Diagnoses or Chief Complaint May 26, 2018 [facility] | | | [facility] [place] Emergency Chest pain, unspecified | | | May 26, [address] [facility] [place] Emergency Chief | | | Complaint: FLU SYMPTOMS May 25, [address] [facility] [place] | | | Emergency Chief Complaint: SOB/COUGH May 10, [address] [facility] | | | [place] [...] | | disease Feb 14, 2018 [facility] [place] [facility] | | | Functional dyspepsia Other ascites Epigastric pain | | | Allergy status to narcotic agent status Radiographic dye | | | allergy status Nicotine dependence, unspecified, uncomplicated | | | Other termite helper (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 Sep 16, 2017 [facility] [place] Emergency Chronic kidney disease, | | | unspecified Dependence on renal dialysis Pain, | | | unspecified Allergy status to narcotic agent status | | | Nicotine dependence, unspecified, uncomplicated Other senior living | | | (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 Elevated [...] record at this time. | | | AIRSIS Portal This patient has registered at the [facility] | | | [facility] Emergency Department For more information visit: | | | [email or web address] | | | [email or web address] PLEASE NOTE: [...] | | completeness of information provided. 2019 [employer] | | | [email or web address]. - [email or web address] | | + + + + + | Procedure Note | + + | Interface, Lab - 05/26/2018 12:00 PM PDT Formatting of this note may be different | | from the original.[id number] [id number] Met 2 in 2Security and | | SafetyNo recent Security Events currently on fileED Care GuidelinesThere are currently | | no ED Care Guidelines for this patient. Please check your facility's medical records | | system.Prescription Drug Report (12 Mo.)PDMP query found no report.E.D. Visit Count (12 | | mo.)Facility Visits Low Acuity [facility] 1 0 [facility] | | Hospital 5 0 Total 6 0 Note: Visits indicate total known visits. Medicaid Low Acuity Dx | | are the number of primary diagnoses on the Medicaid's Low Acuity dx list. Recent | | Emergency Department Visit SummaryDate Facility [facility] [place] Type Diagnoses or Chief | | Complaint May 26, 2018 [facility] [place]. [place] Emergency Chest pain, | | unspecified May 26, 2018 [facility] [place] [facility] Chief Complaint: FLU | | SYMPTOMS May 25, 2018 [facility] [place] [facility] Chief Complaint: | | SOB/COUGH May 10, 2018 [facility] [place] [facility] Epistaxis Other long [...] stage renal disease Feb 14, 2018 [facility] [place] [place] Emergency Functional dyspepsia Other ascites Epigastric pain | | Allergy status to narcotic agent status Radiographic dye allergy status Nicotine | | dependence, unspecified, uncomplicated Other termite helper (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 Sep | | 2017 [facility] [place] Emergency Chronic kidney disease, unspecified | | Dependence on renal dialysis Pain, unspecified Allergy status to narcotic agent | | status Nicotine dependence, unspecified, uncomplicated Other senior living (current) | | 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 Elevated blood-pressure [...] | Anupam patient has registered at the [facility] Emergency | | Department For more information visit: | | [email or web address] andnbsp | | PLEASE NOTE: 1. Any [...] to the | | limitations of applicable AIRSIS Policies. 3. You should consult directly with | | the organization that provided a care guideline or other clinical history with any | | questions about additional information or accuracy or completeness of information | | provided.2019 [employer]. - [email or web address] | | Hypertensive heart and chronic kidney disease without heart failure, with stage 5 chroni c kidney disease, or end stage renal disease | | | |Feb 14, 2018 [facility] [place] [facility] | | Functional dyspepsia | | Other ascites | | Epigastric pain | | Allergy status to narcotic agent status | | Radiographic dye allergy status | | Nicotine dependence, unspecified, uncomplicated | | Other senior living (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 | | | |Sep 16, 2017 [facility] [place] [facility] | | Chronic kidney disease, unspecified | | Dependence on renal dialysis | | Pain, unspecified | | Allergy status to narcotic agent status | | Nicotine dependence, unspecified, uncomplicated | | Other senior living (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 | | Elevated blood-pressure [...] |This patient has registered at the [facility] Emergency Department | |For more information visit: [email or web address] | |andnbsp PLEASE NOTE: | | 1. [...] of information provided. | | | |2019 [employer]. - [email or web address] | + + + +---------+ + + [...] | + + + + + | [facility] | [address] | [place] [address] | | + + + + + [...] 10 mLs | | | | 0.5% -1:[id number] injection 10 mL | Other | 9 [...] PDT | | | | | Dialysis, [facility] 05/30/18 at 0730, | | | [...] PDT | | | | | Dialysis, [place] 05/27/18 at 1700, | | | | [...] PDT | | | | | Dialysis, [facility] 05/28/18 at 1230, | | | | [...] PDT | | | | | Dialysis, [facility] 06/01/18 at 0800, | | | | [...]
--- OUTSIDE RECORDS SUMMARY | ~2018-06-04 | XMS | Clinical Summary ---
Demographics + + + | Address | [facility] [address] | | | [place] [address] | + + + | Home Phone [...] | [facility] | | | and [place] | + + + | Organization | [facility] | | | and [place] | + + + | Address | Unknown | + + + | Phone | Unavailable | + + + Support + + +---------+ + | Name | Relationship | Address | Phone | + + +---------+ + | Jessica Weldon | ECON | Unknown | | + + +---------+ + | Deidra Weldon | ECON | Unknown | | + + +---------+ + | Thania Mallory | ECON | Unknown | | + + +---------+ + Care Team Providers + +------+ + | Care Administrative Medical Director Name | Role | Phone | [...] | | | + + +---------+---------+------+------+-------+ | iron sucrose | Inject 2.5 mLs into | | | 07/1 | | Activ | | (VENOFER) 20 mg/mL | the vein Once a | | | 0/20 | | e | | injection | week. | | | 15 | | | + + +---------+---------+------+------+-------+ | albuterol 90 | Inhale 2 puffs [...] + + +---------+---------+------+------+-------+ | clopidogrel | Take 1 tablet by | 30 | 11 | 07/1 | | Activ | | (PLAVIX) 75 mg | mouth Daily. | tablet | | 7/20 | | e | | tablet | | | | 17 | | | + + +---------+---------+------+------+-------+ | norethindrone | Take 1 tablet by | 28 | 11 | 07/1 | | Activ | | (MICRONOR) 0.35 MG | mouth Daily. | tablet | | 7/20 | | e | | tablet | | | | 17 | | | + + +---------+---------+------+------+-------+ | 27-0.8 mg | Take 1 tablet by | 30 | 11 | 09/03 | | Activ | | multivitamin tablet | mouth Daily. | tablet | | 7/20 | | e | | | | | | 17 | | | + + +---------+---------+------+------+-------+ | epoetin jenna | Inject 3,000 Units | | | | | Activ | | (EPOGEN,PROCRIT) | under the skin Three | | | | | e | | 3,000 units/mL | times a week. | | | | | | | injection | | | | | | | + + +---------+---------+------+------+-------+ | hydrOXYzine | Take 1 tablet by | 60 | 1 | 10/2 | | Activ | | (ATARAX) 50 MG | mouth nightly as | tablet | | 3/20 | | e | | tablet | needed for Itching. | | | 17 | | | + + +---------+---------+------+------+-------+ | raNITIdine | Take 1 capsule by | 30 | 11 | 02/0 | | Activ | | (ZANTAC) 300 MG | mouth every evening. | capsule | | 5/20 | | e | | capsule | | | | 18 | | | + + +---------+---------+------+------+-------+ | sevelamer | Take 4 tablets by | 450 | 11 | 08/0 | | Activ | | carbonate (RENVELA) | mouth with meals and | tablet | | 7/20 | | e | | 800 mg tablet | 3 tablets with | | | 18 | | | | | snacks | | | | | | + + +---------+---------+------+------+-------+ | doxercalciferol | Inject 0.5 mLs into | | | 12/2 | | Activ | | [...] | | | + + +---------+---------+------+------+-------+ | etelcalcetide | Inject 2.5 mg into | | | | | Activ | | (PARSABIV) 2.5 | the vein Three times | | | | | e | | mg/0.5 mL injection | a week. | | | | | | + + +---------+---------+------+------+-------+ | losartan (COZAAR) | Take 1 tablet by | 90 | 3 | 02/0 | | Activ | | 100 MG tablet | mouth Daily. | tablet | | 4/20 | | e | | | | | | 19 | | | + + +---------+---------+------+------+-------+ Active Problems + + + | Problem | Noted Date | + + + | Awaiting kidney transplant status | 03/10/2014 | + + + + + | Overview: Active Kidney Transplant Waiting List at [facility]: | | 03/07/2014 | + + [...] | | Treated by Dr. Joy, pediatric nurse practitioner. 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 ESRD in 2012, started peritoneal dialysis in 2012. Switched | | ot hemodialysis in July 2013. Current Access: Right chest | | catheter. Other Access: Left radial-cephalic AVF created | | 02/24/14, primary failure (clotted on 03/07/14, attempted declot | | but reclotted). Listed at [facility] for kidney transplant - status | | ACTIVE. | + + + +---+ | Anemia in ESRD (end-stage renal disease) (HCC) | | + +---+ | Secondary hyperparathyroidism (HCC) | | + +---+ | Obesity | | + +---+ Encounters +--------+ + + + + | Date | Type | Specialty | Care Team | Description | +--------+ + + + + | 04/23/ | Off-Site | | Jorje Camp | ESRD (end stage | | 2019 | Visit | | M, DO | [...] + | Pulse | 73 | 03/05/2014 0824 PST | + + + + | Temperature | 36.2 C (97.2 F) | 04/23/2018 1837 PST | + + [...] Body Mass Index | 35.78 | 02/24/2014 0600 PST | + + + + Plan [...] Last 3 Months Insurance + +--------+ +--------+ +---------+ | Payer | Benefi | Subscriber | Type | Phone | Address | | | t Plan | ID | | | | | | / | | | | | | | Group | | | | | + +--------+ +--------+ +---------+ | MEDICARE | MEDICA | [id number] | Medica | [phone]- | | | | RE | | re | [phone] | | | | PART A | | | | | | | AND B | | | | | + +--------+ +--------+ +---------+ | [employer] | MODA | [id number] | Medica | [phone] | | | MEDICAID HMO | HEALTH | | id | [id number] | | | | MDCD | | | | | | | [place] | | | | | + +--------+ +--------+ +---------+ + +--------+ +--------+ + + | Guarantor Name | Accoun | Relation to | Date | Phone | Billing Address | | | t Type | Patient | of | | | | | | | | | | + +--------+ +--------+ + + | DARA WELDON | Person | Self [birth year] | Home: | [address] | | | al/Fam [birth year] | 1994 | +- | [place] | | | [place] | | | [phone] | [phone] | + +--------+ +--------+ + + | JESSICA WELDON | Person | Father | [birth year] | Home: | [address] | | | al/Fam | | 1970 | +- | [place] [address] | | | [place] | | | [address] | | + +--------+ +--------+ + +
--- OUTSIDE RECORDS SUMMARY | ~2018-06-04 | XMS | Encounter Summary ---
Demographics + + + | Address | [address] | | | [place] [address] | + + + | Home Phone [...] Author | [facility] | | | and [place] | + + + | Organization | [facility] | [...] Providers + +------+ + | Care Manager Costing Name | Role | Phone | + [...] | | stage renal | [address] | [address] [place] [address] | | | | | disease) | Shun Griffin | [place] | | | | | (HCC) | [address] | [address] | | | | | Anemia in | [place], [place] | [place], [place] | | | | | ESRD | [address] | [address] Phone: | | | | | (end-stage | Phone: | [phone] | | | | | renal | [phone] | Fax: | | | | | disease) | Fax: | [phone] | | | | | ([facility]) | [phone] | | | | | | Procedures | | | | | | | [place] ESRD | | | | | | [...] | M, DO [address] | renal disease) ([facility]) | | | | [address] | [place], [address] | (Primary Dx) | | | | [place] | [place] | | | | | [address] | [address] | | | | | [phone] | | | +--------+ + + + [...] | - | + + + + in this encounter Progress Notes Jorje Camp DO - 04/23/2018 0945 PSTFormatting of this note may be different from the original. Subjective: DIALYSIS NOTE Patient ID: [...] Will recheck her in 2 weeks. : [place] Fina Alonso MD, PhD in this encounter Plan of Treatment Not on fileas of this encounter Visit Diagnoses + + | Diagnosis | + + | ESRD (end stage renal disease) (HCC) - Primary | + + | End stage renal disease | + +"
--- OUTSIDE RECORDS SUMMARY | ~2018-06-04 | XMS | Encounter Summary ---
Demographics + + + | Address | [address] | | | [place] [address] | + + + | Home Phone [...] | Author | [facility] | | | and [place] | + + + | Organization | [facility] | [...] Providers + +------+ + | Care General Accountant Name | Role | Phone | [...] | | [address] | [place] | | | | | [place], [place] | [place], [place] | | | | | [address] | [address] | | | | | [phone] | | | +--------+ + + + [...]
--- OUTSIDE RECORDS SUMMARY | ~2018-06-04 | XMS | Clinical Summary ---
Demographics + + + | Address | [address] | | | [place] [address] | + + + | Home Phone [...] | | | | | [place] [address] | | + + + + + | Thania Mallory | ECON | [address] | | | | | [place] [address] | | + + + + + | Deidra Weldon | ECON | [address] | | | | | [place] | | | | | [address] | | + + + + + Care Team Providers + +------+ + | Care Quarry Equipment Operator Name | Role | Phone | + +------+ + | Jonathan Alonso MD | PP | | + +------+ + Source Comments DANILO is fully live on both EpicCare Ambulatory and EpicCare InPatient.[facility] Allergies + + + + + [...] Denise | | | | | | [place], [place] | | | | | | [address] | | | | | | [phone] | | | | | | | [...] | re | [address] | [place] [address] | | | B | | | | | + +--------+ +--------+ + + | CONTRACTS ADVISOR MEDICAID | CONTRACTS ADVISOR | xxxxxxxx | Medica | | | | | [place] | | id | | | | | [place] | | | | | + +--------+ +--------+ + + | MEDICARE RENAL | MEDICA | xxxxxxxxxx | Agency | | RENAL DEPT [id number] | | RECIPIENT EVAL | RE | | | | [place] [address] | | | RENAL | | | [...] | | al/Fam | | 1994 | [phone] | [address] [place] | | | [place] | | | [address] Home: | [address] | | | | | | | | | | | | | [phone] | | | | | | [address] | | + +--------+ +--------+ + + | CORY ALVES | Kisha | Mother | [birth year]06[birth year] | Home: | [address] | | | l | | [phone] | [phone] | [address] [place] | | | [place] | | | [address] | [address] | | | g | | | | | + +--------+ +--------+ + +
--- OUTSIDE RECORDS SUMMARY | ~2018-06-04 | XMS | Clinical Summary ---
Demographics + + + | Address | [facility] [address] | | | [place] [address] | + + + | Home Phone [...] + + + | Author | [employer] | + + + | Organization | [facility] [employer] | + + + | Address [...] | | | | | [place] [address] | | + + + + + [...] | Acute systolic CHF (congestive heart failure) ([facility]LY [facility]) | 05/28/2018 | + + + | [...] | | | | | hemodialysis ([facility]); | | | | | | Hyperkalemia; | | | | | | Hyperphosphatemia; | | | | | | At high risk for | | | | | | electrolyte | | | | | | imbalance; Acute | | | | | | systolic CHF | | | | | | (congestive heart | | | | | | failure) ([facility]); | | | | | | Hypoalbuminemia; | | | | | | Anemia in ESRD | | | | | | (end-stage renal | | | | | | disease) ([facility]LY [facility]); ESRD | | | | | | [...] | Left: | SYNOVIS | | | [id number] | | 0.8x8cm - [id number]: | | Arm | | | | [...] | | | COVIDIEN | | | [id number] | | 23cmExplanted: Qty: 1 on | | | | | | 3404 / | | 04/08/2014 | | | | | | | | | | | | | | /[id number] | | | | | | | [...] [address] | | | | [address], | | | | | [place] [address] | | | | |Testing performed at [facility], [address] [place] [address] | | | | | | | | + + + + + + + | Specimen | + + | Blood | + + + + + + + | Performing | Address | City/State/Zipcode | Phone Number | | Organization | | | | + + + + + | [facility] | [address] | [place] [address] | [phone] | | LABORATORY | [address]vd[address] | | [...] [place], | | | | | [place] [address] | | | + + + + + + + | Specimen | + + | Blood | + + + + + + + | Performing | Address | City/State/Zipcode | Phone Number | | Organization | | | | + + + + + | [facility] | [address] | [place] [address] | [phone] | | LABORATORY | [address] | | [...] | systolic CHF (congestive heart failure) ([facility]) Transaminitis | | | The patient is [...] | | | antibiotic" for pneumonia at [facility]. Was throwing up & could not [...] of 2 results within the time p shwan is included. + + + | Impressions [...] | + + + + + | [facility] | [address] | [place] [address] | | + + + + + Cholesterol, body fluid (05/29/2018 12:56 PM) + + + + + | Component | Value | Ref Range | Performed At | + + + + + | FLUID CHOLESTEROL | 56Comment: This is not a | mg/dL | [facility] | | | cheese pancake roller validated | | LABORATORY | | | sample type for this | | | | | method. No reference | | | | | ranges have been | | | | | established.Testing | | | | | performed at [facility], [address] | | | | | [facility], | | | | | [place] [address] | | | + + + + + + + | Specimen | + + | Body Fluid - | | Pleural, Right | + + + + + + + | Performing | Address | City/State/Zipcode | Phone Number | | Organization | | | | + + + + + | [facility] | [address] | [place] [address] | [phone] | | LABORATORY | [address]vd[address] | | [...] + + + | [facility] | [address] | [place] [address] | [phone] | | LABORATORY | [address]vd[address] | | | + + + + + Lactate dehydrogenase, body fluid (05/29/2018 12:56 PM) + + + + + | Component | Value | Ref Range | Performed At | + + + + + | FLUID LDH | 151Comment: This is not | U/L | [facility] | | | a cheese pancake roller validated | | LABORATORY | | | sample type for this | | | | | method. No reference | | | | | ranges have been | | | | | established.Testing | | | | | performed at [facility], [address] | | | | | [facility], | | | | | [place] [address] | | | + + + + + + + | Specimen | + + | Body Fluid - | | Pleural, Right | + + + + + + + | Performing | Address | City/State/Zipcode | Phone Number | | Organization | | | | + + + + + | [facility] | [address] | [place] [address] | [phone] | | LABORATORY | [address] | | [...] | | space is punctured with an 8-Egyptian thoracentesis catheter. Fluid is | | | [...] the pleural space is punctured with an 8-Egyptian | | thoracentesis catheter. Fluid is aspirated [...] [facility] | [address] | [facility] [place] [address] | | + + + + + APTT (05/29/2018 8:52 AM) + + + + + | Component | Value | Ref Range | Performed At | + + + + + | APTT | 29Comment: Testing | 23 - 32 seconds | [facility] | | | performed at [facility];[address] | | | | | [address];[place] | | | | | [address] | | | + + + + + + + | Specimen | + + | Blood | + + + + + + + | Performing | Address | City/State/Zipcode | Phone Number | | Organization | | | | + + + + + | [facility] | [address] | [place] [address] | | + + + + + Protime-INR (05/29/2018 8:52 AM) + + + + + | Component | Value | Ref Range | Performed At | + + + + + | INR | 1.5Comment: REFERENCE | | [facility] | | | RANGE:0.9 - | [...] | | | performed at [facility] | | | | | [facility];[place], [place] | | | | | [address] | | | + + + + + + + | Specimen | + + | Blood | + + + + + + + | Performing | Address | City/State/Zipcode | Phone Number | | Organization | | | | + + + + + | [facility] | [address] | [place] [address] | | + + + + + [...] ABDOMEN, LIMITED CLINICAL INFORMATION: Abdominal pain. | [facility] | | COMPARISON: IR AV FISTULAGRAM [...] | + + + + + | [facility] | [address] | [place] [address] | | + + + + + Troponin I (05/28/2018 1:59 PM)Only the most recent of 2 results within the time period is included. + + + + + | Component | Value | Ref Range | Performed At | + + + + + | TROPONIN I | 0.037Comment: 0.04 | 0.00 - 0.04 ng/mL | [facility] | | | ng/mL or | [...] | | | | | [facility];[address] [place] [address] | | | | | [facility];[place] [address] | | | + + + + + + + | Specimen | + + | Blood | + + + + + + + | Performing | Address | City/State/Zipcode | Phone Number | | Organization | | | | + + + + + | [facility] | [address] | [place] [address] | | + + + + + [...] | | | | [facility], [address] [place] [address] | | | | | [place] | | | | | [address] | | | + + + + + + + | Specimen | + + | Blood | + + + + + + + | Performing | Address | City/State/Zipcode | Phone Number | | Organization | | | | + + + + + | [facility] | [address] | [place] [address] | [phone] | | LABORATORY | [address]vd[address] | | [...] [address] | | | | | [facility], | | | | | [place] [address] | | | + + + + + + + | Specimen | + + | Blood | + + + + + + + | Performing | Address | City/State/Zipcode | Phone Number | | Organization | | | | + + + + + | [facility] | [address] | [place] [address] | [phone] | | LABORATORY | Blvd. | | [...] (H) | 2.3 - 4.8 mg/dL | [facility] | + + + + + | EGFR | 6 (L)Comment: GFR <60: | >60 mL/min/1.73m2 | [facility] | | | CHRONIC KIDNEY DISEASE, [...] the | | | | | MDRD IDVA traceable | | | | | equation.Testing | | | | | performed at [facility];[address] | | | | | [facility];[place], [place] | | | | | [address] | | | + + + + + + + | Specimen | + + | Blood - Blood | + + + + + + + | Performing | Address | City/State/Zipcode | Phone Number | | Organization | | | | + + + + + | [facility] | [address] | [place] [address] | | + + + + + [...] + + + + | Calculated P Anna | 24 | degrees | [facility] | + + + + + | Calculated R Anna | 24 | degrees | [facility] E[facility] | + + + + + | Calculated T Anna | 103 | degrees | [facility] | + + + + + | Diagnosis | Normal sinus rhythmPoor | | [facility] | | | R - progressionAbnormal [...] | [facility] | [address] | [place] [address] | | + + + + + [...] | | | | | [place] [address] | | | + + + + + + + | Specimen | + + | Blood | + + + + + + + | Performing | Address | City/State/Zipcode | Phone Number | | Organization | | | | + + + + + | [facility] | [address] | [place] [address] | [phone] | | LABORATORY | Blvd. | | | + + + + + C-reactive protein (05/28/2018 9:23 AM) + + + + + | Component | Value | Ref Range | Performed At | + + + + + | CRP | 5.1 (H)Comment: Testing | <0.5 mg/dL | [facility] | | | performed at [facility], [address] | | LABORATORY | | | [facility], | | | | | [place] [address] | | | + + + + + + + | Specimen | + + | Blood | + + + + + + + | Performing | Address | City/State/Zipcode | Phone Number | | Organization | | | | + + + + + | [facility] | [address] [place] [address] | [place] [address] | [phone] | | LABORATORY | [address]vd. | | [...] | | | | | [place] [address] | | | + + + + + + + | Specimen | + + | Blood | + + + + + + + | Performing | Address | City/State/Zipcode | Phone Number | | Organization | | | | + + + + + | [facility] | [address] | [place] [address] | [phone] | | LABORATORY | Blvd. | | [...] | | LABORATORY | | | [facility], | | | | | [place] [address] | | | + + + + + + + | Specimen | + + | Blood | + + + + + + + | Performing | Address | City/State/Zipcode | Phone Number | | Organization | | | | + + + + + | [facility] | [address] | [place] [address] | [phone] | | LABORATORY | [address]vd[address] | | | + + + + + Pathology cytology - fluid (05/28/2018 8:00 AM) + + | Specimen | + + | Body Fluid | + + + + + | Narrative | Performed At | + + + | ORDERING PHYSICIAN: Aneudy Hunter MD PATIENT NAME: [facility] | | DARA LOUISE GENDER: Alysia : [...] PERFORMING LABORATORY: Technical preparation was performed by [facility] | | | [place], [address] [place] [address] | | | (Brand Mgr: Matt Claudio D.O.; CLIA#: [id number]). | | | Professional interpretation was performed by [facility], | | | [address] [address] | | | (Brand Mgr: Daniel Larson M.D.; CLIA#: [id number]).6 | | | Diagnostician: Marie BROOKS ([facility]) Administrative Law Judge | | | Diagnostician: Anahy Da Silva [...] | + + + + + | [facility] | [address] | [place] [address] | [phone] | | LABORATORY | Blvd. | | [...] | | | [facility], [address] [facility] | | | | | [place] | | | | | [address] | | | + + + + + + + + + + | Performing | Address | City/State/Zipcode | Phone Number | | Organization | | | | + + + + + | [facility] | [address] | [place] [address] | [phone] | | LABORATORY | Blvd. | | [...] valve is normal. 18. | | | Drhk-hp-uyoayzml eccentric mitral regurgitation is present. 19. | [...] DARA LOUISE Date of : 1995 | [facility] | | Performing Physician: Robel De [...] valve is normal. 18. | | | Nhut-lx-asbqeijd eccentric mitral regurgitation is present. 19. | [...] is | | | normal. Mitral Valve: Dpza-pb-dishqkpj eccentric mitral | | | regurgitation is [...] TR Vmax: 2.74 m/s | | | Refrigerating Machine Operator: MOO Authenticated by: Robel Yusuf MD Report | | | Date/Time: 05-27-2018 13:59:57 | | + + + + + | Procedure Note | + + | Sonido Steele In - 05/27/2018 2:00 PM PDT Patient Name: DARA LOUISELucas of | | : 1995Accession: [id number] Physician: Robel Yusuf | | MD INDICATIONS [...] aortic stenosis.17. The mitral valve is normal.18. Udev-uz-fmjhiusv | | eccentric mitral regurgitation is present.19. [...] | | arch are normal.26. No mass wxiytbduvq63. No clot visualizedFINDINGS--------ECG rhythm: | | Sinus [...] The mitral valve is normal. Mitral Valve: Ygtv-ci-oqjulrip eccentric mitral | | regurgitation is present.Tricuspid [...] (A-L): 30.43 | | ml/m2LAAs A2C: 20.97 [id number] A-L A2C: 65.71 mlLALs A2C: 5.68 cmLAAs A4C: 19.94 | | ky6LEPCT A-L A4C: 60.20 mlLALs A4C: 5.60 cmTAPSE: 1.58 cmHR: 79.62 BPMAV maxPG: | | 6.06 mmHgAV meanP.71 mmHgAV Vmax: 1.23 m/Elizabeth Vmean: 0.92 m/Elizabeth VTI: 20.07 | | cmAVA Vmax: 1.74 cm2AVA (VTI): 1.93 [id number] Vmax: 0.00 cm2/m2AVAI (VTI): 0.00 | | [...] The mitral valve is | | normal.18. Ewpl-nl-uuyijeyz eccentric mitral regurgitation is present.19. Severe | [...] and aortic arch are normal.26. No mass czhctmxplo46. No clot visualized | |LVIDd: 4.99 cm [...] |TR Vmax: 2.74 m/s | | | |Refrigerating Machine Operator: MW | |Authenticated by: Robel [...] The mitral valve is normal. | |18. Ehew-nq-ljlwneur eccentric mitral regurgitation is present. | |19. [...] | + + + + + | [facility] | [address] | [place] [address] | | + + + + + [...] [facility] | [address] | [place] [address] | | + + + + [...] [place], | | | | | [place] [address] | | | + + + + + + + | Specimen | + + | Blood | + + + + + + + | Performing | Address | City/State/Zipcode | Phone Number | | Organization | | | | + + + + + | [facility] | [address] | [place] [address] | [phone] | | LABORATORY | [address] | | [...] (H)Comment: | 0 - 100 pg/mL | [facility] | | PEPTIDE | Testing performed at | | | | | [facility];[address] | | | | | [address];[place] [address] | | | + + + + + + + | Specimen | + + | Blood | + + + + + + + | Performing | Address | City/State/Zipcode | Phone Number | | Organization | | | | + + + + + | [facility] | [address] | [place] [address] | | + + + + + Magnesium (05/27/2018 4:25 AM) + + + + + | Component | Value | Ref Range | Performed At | + + + + + | MAGNESIUM | 2.7 (H)Comment: Testing | 1.7 - 2.4 mg/dL | [facility] | | | performed at [facility], [address] | | LABORATORY | | | [facility], | | | | | [place] [address] | | | + + + + + + + | Specimen | + + | Blood | + + + + + + + | Performing | Address | City/State/Zipcode | Phone Number | | Organization | | | | + + + + + | [facility] | [address] | [place] [address] | [phone] | | LABORATORY | [address]vd[address] | | [...] (L)Comment: GFR <60: | >60 mL/min/1.73m2 | [facility] | | | CHRONIC KIDNEY DISEASE, [...] the | | | | | MDRD IDVA traceable | | | | | equation.Testing | | | | | performed at [facility], [facility] [address] | | | | | [facility], | | | | | [place] [address] | | | + + + + + + + | Specimen | + + | Blood | + + + + + + + | Performing | Address | City/State/Zipcode | Phone Number | | Organization | | | | + + + + + | [facility] | [address] | [place] [address] | [phone] | | LABORATORY | Blvd. | | [...] at | | | | | [facility], [address] [place] [address] | | | | | [address], [place], [place] | | | | | [address] | | | + + + + + + + | Specimen | + + | Nasopharynx/Orophary | | nx | + + + + + + + | Performing | Address | City/State/Zipcode | Phone Number | | Organization | | | | + + + + + | [facility] | [address] | [place] [address] | [phone] | | LABORATORY | [address] | | | + + + + + MRSA by PCR (05/26/2018 6:06 PM) + + + + + | Component | Value | Ref Range | Performed At | + + + + + | SOURCE | NARES(NOSE) | | [facility] | + + + + + | MRSA PCR | NEGATIVEComment: Testing | NEGATIVE | [facility] | | | performed at [facility];[address] | | | | | [address];[place] | | | | | [address] | | | + + + + + + + | Specimen | + + | Nasopharyngeal - | | Nares(Nose) | + + + + + + + | Performing | Address | City/State/Zipcode | Phone Number | | Organization | | | | + + + + + | [facility] | [address] | [place] [address] | | + + + + + PROCALCITONIN (05/26/2018 5:27 PM)Only the most recent of 2 results within the time period is included. + + + + + | Component | Value | Ref Range | Performed At | + + + + + | PROCALCITONIN | 0.76 (H)Comment: | <0.5 ng/mL | [facility] | | | INTERPRETIVE | | [...] | | | | at [facility];[address] [place] [address] | | | | | [facility];[place] [address] | | | + + + + + + + + + + | Performing | Address | City/State/Zipcode | Phone Number | | Organization | | | | + + + + + | [facility] | [address] | [facility] [address] | | + + + + + [...] | + + + + + | [facility] | [address] | [place] [address] | | + + + + + [...] STAIN | STAIN PERFORMED ON | | [facility] | | | CYTOSPIN | | [...] | + + + + + | [facility] | [address] | [place] [address] | [phone] | | LABORATORY | [address] | | | + + + + + | [facility] | [address] | [place] [address] | | + + + + + Pathologist consult (05/26/2018 2:12 PM) + + + + + | Component | Value | Ref Range | Performed At | + + + + + | Pathologist Consult | Comment: Review of | | [facility] | | | pleural fluid collected [...] | | | | | [address];[place] [address] | | | + + + + + + + + + + | Performing | Address | City/State/Zipcode | Phone Number | | Organization | | | | + + + + + | [facility] | [address] | [place] [address] | | + + + + + Cell count, Body Fluid (05/26/2018 2:12 PM) + + + + + | Component | Value | Ref Range | Performed At | + + + + + | FLUID TYPE | PLEURAL FLUID | | [facility] | + + + + + | COLOR | SAMMIE | | [facility] | + + + + + | APPEARANCE | CLOUDY | | [facility] | + + + + + | RBC'S | 3,000Comment: CORRECTED | /mm3 | [facility] | | | RESULTS CALLED TO | | | | | ELSA IN ED AT 1705 | | | | | BY LGJCORRECTED ON 05/26 | | | | | AT 1702: PREVIOUSLY | | | | | REPORTED <[id number] | | | + + + + + | TOTAL NUCLEATED | 253Comment: CORRECTED | /mm3 | [facility] | | CELLS | RESULTS CALLED TO | | | | | ELSA IN ED AT 1705 | | | | | BY LGJCORRECTED ON 05/26 | | | | | AT 1702: PREVIOUSLY | | | | | REPORTED 374 | | | + + + + + | NEUTROPHILS | 22 | % | [facility] | + + + + + | LYMPHOCYTES | 8 | % | [email or web address] | + + + + + | MONOCYTES/MACROPHAGE | 65 | % | [facility] | | S | | | | + + + + + | Mesothelial Cells | 5 | % | [facility] | + + + + + | CELLS COUNTED | 100Comment: Testing | | [facility] | | | performed at [facility] | | | | | [address];[place] | | | | | [address] | | | + + + + + + + | Specimen | + + | Body Fluid - Lung, | | Right Lower Lobe | + + + + + + + | Performing | Address | City/State/Zipcode | Phone Number | | Organization | | | | + + + + + | [facility] | [address] | [place] [address] | | + + + + + Total Protein, Body Fluid (05/26/2018 2:12 PM) + + + + + | Component | Value | Ref Range | Performed At | + + + + + | FLUID TOTAL PROTEIN | 4.2Comment: This is not | g/dL | [facility] | | | a cheese pancake roller validated | | LABORATORY | | | sample type for this | | | | | method. No reference | | | | | ranges have been | | | | | established.Testing | | | | | performed at [facility], [address] | | | | | [facility], | | | | | [place] [address] | | | + + + + + | FLUID TP SOURCE | PLEURAL FLUIDComment: | | [facility] | | | Testing performed at | | | | | [facility];[address] | | [address];[place] [address] | | | + + + + + + + | Specimen | + + | Body Fluid - Lung, | | Right Lower Lobe | + + + + + + + | Performing | Address | City/State/Zipcode | Phone Number | | Organization | | | | + + + + + | [facility] | [address] | [place] [address] | | + + + + + | [facility] | [address] [place] [address] | [place] [address] | [phone] | | LABORATORY | [address]vd[address] | | | + + + + + Albumin, Body Fluid (05/26/2018 2:12 PM) + + + + + | Component | Value | Ref Range | Performed At | + + + + + | FLUID ALBUMIN | 2.3Comment: This is not | g/dL | [facility] | | | a cheese pancake roller validated | | LABORATORY | | | sample type for this | | | | | method. No reference | | | | | ranges have been | | | | | established.Testing | | | | | performed at [facility], [address] | | | | | [facility], | | | | | [place] [address] | | | + + + + + + + | Specimen | + + | Body Fluid - Lung, | | Right Lower Lobe | + + + + + + + | Performing | Address | City/State/Zipcode | Phone Number | | Organization | | | | + + + + + | [facility] | [address] | [place] [address] | [phone] | | LABORATORY | [address]vd[address] | | | + + + + + pH, Body Fluid (05/26/2018 2:12 PM) + + + + + | Component | Value | Ref Range | Performed At | + + + + + | FLUID PH | 7.45Comment: Testing | | [facility] | | | performed at [facility];[address] | | | | | [address];[place] | | | | | [address] | | | + + + + + + + | Specimen | + + | Body Fluid - Lung, | | Right Lower Lobe | + + + + + + + | Performing | Address | City/State/Zipcode | Phone Number | | Organization | | | | + + + + + | [facility] | [address] | [place] [address] | | + + + + + Cardiac Panel (05/26/2018 12:14 PM) + + + + + | Component | Value | Ref Range | Performed At | + + + + + | WBC | 5.73 | 3.80 - 11.00 K/uL | [facility] | + + + + + | RBC | 3.32 (L) | 3.70 - 5.10 M/uL | [facility] | + + + + + [...] (H) | 37 - 53 fl | [facility] | + + + + + | PLT | 151 | 150 - 400 K/uL | [facility] | + + + + + | MPV | 10.1 | fl | [facility] | + + + + + | DIFF TYPE | AUTOMATED | | [facility] | + + + + + | NEUTROPHILS | 72.41 | % | [facility] | + + + + + [...] 0.37 | 0.00 - 0.80 K/uL | [facility] | + + + + + | EOSINOPHILS ABS | 0.06 | 0.00 - 0.50 K/uL | [facility] | + + + + + [...] 1.1 | 0.1 - 1.5 mg/dL | [facility] | + + + + + | ALK PHOS | 120 (H) | 35 - 115 U/L | [email or web address] | + + + + + | AST | 82 (H) | 10 - 45 U/L | [email or web address] | + + + + + | ALT | 64 | 10 - 65 U/L | [email or web address] | + + + + + | EGFR | 6 (L)Comment: GFR <60: | >60 mL/min/1.73m2 | [facility] | | | CHRONIC KIDNEY DISEASE, [...] (H) | 30 - 240 U/L | [facility] | + + + + + | INR | 1.6Comment: REFERENCE | | [facility] [facility] | | | RANGE:0.9 - | [...] 29 | 23 - 32 seconds | [facility] | + + + + + | MMB | 7.8 (H) | 0.5 - 3.6 ng/mL | [facility] | + + + + + | CK-MB Index | 2.7Comment: CK INDEX | | [facility] | | | INTERPRETATION: | | [...] | | | performed at [facility] | | | | | Nica Oropeza;[place], [place] | | | | | [address] | | | + + + + + + + + + + | Performing | Address | City/State/Zipcode | Phone Number | | Organization | | | | + + + + + | [facility] | [address] | [place] [address] | | + + + + + [...] space: 4th Puncture | | | method: Mcrk-tvi-lydelo catheter Ultrasound guidance: yes | | | [...] perforation, infection and | | | pain [place] protocol: Imaging studies available: yes | | [...] Performed At | + + + | [id number] [id number] Criteria Met 2 in 2 | ED [...] Count (12 mo.) Facility Visits Low Acuity [facility] | | | [facility] 1 0 [facility] 5 0 Total 6 0 | | | Note: Visits indicate total known visits. Medicaid Low Acuity Dx | | | are the number of primary diagnoses on the Medicaid's Low Acuity dx | | | list. Recent Emergency Department Visit Summary Date Facility | | | City State Type Diagnoses or Chief Complaint May 26, 2018 [facility] | | | [facility] Emergency Chest pain, unspecified | | | May 26, 2018 [facility] [facility] [place] Emergency Chief | | | Complaint: FLU SYMPTOMS [facility] [place] | | | Emergency Chief Complaint: SOB/COUGH May 10, 2018 [facility] | | | [place] [...] | | | disease Feb 14, 2018 [facility] 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 [place] Emergency Chronic kidney disease, | | | unspecified Dependence on renal dialysis Pain, | | | unspecified Allergy status to narcotic agent status | | | Nicotine dependence, unspecified, uncomplicated Other alf | | | (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 Elevated [...] Portal This patient has registered at the [facility] | | | [facility] Emergency Department For more information visit: | | | [email or web address] | | | [email or web address] [facility] PLEASE NOTE: 1. Any care recommendations [...] | | completeness of information provided. 2019 [employer] | | | [employer]. - [email or web address] | | + + + + + | Procedure Note | + + | Interface, Lab - 05/26/2018 12:00 PM PDT Formatting of this note may be different | | from the original.[id number] Met 2 in 2Security and | | SafetyNo recent Security Events currently on fileED Care GuidelinesThere are currently | | no ED Care Guidelines for this patient. Please check your facility's medical records | | system.Prescription Drug Report (12 Mo.)PDMP query found no report.E.D. Visit Count (12 | | mo.)Facility Visits Low Acuity [facility] 1 0 [facility] [place] | | Hospital 5 0 Total 6 0 Note: Visits indicate total known visits. Medicaid Low Acuity Dx | | are the number of primary diagnoses on the Medicaid's Low Acuity dx list. Recent | | Emergency Department Visit SummaryDate Facility City State Type Diagnoses or Chief | | [facility] [place] [place] [facility] Chest pain, | | unspecified May 26, 2018 [facility] [place] [place] Emergency Chief Complaint: FLU | | SYMPTOMS May 25, 2018 [facility] [place] Emergency Chief Complaint: | | SOB/COUGH May 10, 2018 [facility] [place] Emergency Epistaxis Other long [...] stage renal disease Feb 14, 2018 [facility] [place] [facility] | | [place] Emergency Functional dyspepsia Other ascites Epigastric pain | | Allergy status to narcotic agent status Radiographic dye allergy status Nicotine | | dependence, unspecified, uncomplicated Other alf (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 Waldemar | | 2017 [facility] [place] [facility] [place] [place] Emergency Chronic kidney disease, unspecified | | Dependence on renal dialysis Pain, unspecified Allergy status to narcotic agent | | status Nicotine dependence, unspecified, uncomplicated Other alf (current) | | 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 Elevated blood-pressure [...] | LalaThis patient has registered at the [facility] Emergency | | Department For more information visit: | | [id number] andnbsp | | PLEASE NOTE: 1. Any [...] or completeness of information | | provided.2019 [employer]. - [email or web address] | | Hypertensive heart and chronic kidney [...] Nicotine dependence, unspecified, uncomplicated | | Other alf (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 | | | |Sep 16, 2017 [facility] [place] [facility] [place] [place] Emergency | | Chronic kidney disease, unspecified | | Dependence on renal dialysis | | Pain, unspecified | | Allergy status to narcotic agent status | | Nicotine dependence, unspecified, uncomplicated | | Other alf (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 | | Elevated blood-pressure [...] providers on record at this time. | |JamOrigin Portal | |This patient has registered at the [facility] Emergency Department | |For more information visit: [email or web address] | |andnbsp PLEASE NOTE: | | 1. [...] of information provided. | | | |2019 [employer]. - [email or web address] | + + + +---------+ + + [...] +------+-------+ + | MEDICARE | MEDICA | [id number] | | | [address] | | | RE | | | | [place] [address] | | | IP-OP | | | | | + +--------+ +------+-------+ + | MEDICAID | MEDICA | [id number] | | | [address] | | | ID | | | | [place] | | | [place] | | | | [address] | + +--------+ +------+-------+ + + +--------+ +--------+ + + | Guarantor Name | Accoun | Relation to | Date | Phone | Billing Address | | | t Type | Patient | of | | | | | | | | | | + +--------+ +--------+ + + | DARA LOUISE | Person | Self | [birth year] | Home: | [facility] [address] | | | al/Kvng | | 1994 | [phone] | [place] | | | [place] | | | [phone] | [phone] | + +--------+ +--------+ + +
--- OUTSIDE RECORDS SUMMARY | ~2018-06-04 | XMS | Clinical Summary ---
Demographics + + + | Address | [facility] [address] | | | [place] [address] | + + + | Home Phone [...] Author | [facility] | | | and Josephana | + + + | Organization | [facility] | | [...] Providers + +------+ + | Care Corporate Learning Consultant Name | Role | Phone | [...] | | | | | renal disease) ([facility]) | protocol | | | [...] Overview: Active Kidney Transplant Waiting List at [facility]: | | 03/07/2014 | + + [...] 9. | | Treated by Dr. Joy, venture capital analyst. | + + + +---+ | ESRD [...] declot | | but reclotted). Listed at [facility] for kidney transplant - status | [...] +--------+ +---------+ | MEDICARE | MEDICA | [id number] | Medica | [phone] | | | | RE | | re | [phone] | | | | PART A | | | | | | | AND B | | | | | + +--------+ +--------+ +---------+ | MODA [employer] PLAN | MODA | [id number] | Medica | [phone] | | | MEDICAID HMO | HEALTH [...] | [place] | | | [phone] | [phone] | + +--------+ +--------+ + + | JESSICA WELDON | Person | Father | [birth year] | Home: | [address] [facility] | | | al/Fam | | 1970 | +- | [place] [address] | | | [place] | | | [address] | | + +--------+ +--------+ + +
--- OUTSIDE RECORDS SUMMARY | ~2018-06-04 | XMS | Encounter Summary ---
Demographics + + + | Address | [address] | | | [place] [address] | + + + | Home Phone [...] | Author | [facility] | | | and Josephana | + + + | Organization | [facility] [...] Providers + +------+ + | Care Line Haul Owner Operator Name | Role | Phone | [...] | stage renal | [address] | [address] [place] [address] | | | | | disease) | Shun Griffin | [place] | | | | | (HCC) | [address] | [address] | | | | | Anemia in | [place], [place] | [place], [place] | | | | | ESRD | [address] | [address] Phone: | | | | | (end-stage | Phone: | [phone] | | | | | renal | [phone] | Fax: | | | | | disease) | Fax: | [phone] | | | | | ([facility]) | [phone] | | | | | | Procedures [...] | M, DO 301 | renal disease) ([facility]) | | | | [address] | [place], [address] [address] | (Primary Dx) | | | | [place] | [place] | | | | | [address] | [address] | | | | | [phone] | | | +--------+ + + + [...] recheck her in 2 weeks. : [place] Fina Alonso MD, PhD in this encounter Plan of Treatment Not on fileas of this encounter Visit Diagnoses + + | Diagnosis | + + | ESRD (end stage renal disease) (HCC) - Primary | + + | End stage renal disease | + +"
--- OUTSIDE RECORDS SUMMARY | 2018-06-04 06:08 | XMS ---
PreManage Notification: CONOR LOUISE Security Beam Doffer Events No recent Security Events currently on file CRITERIA MET - 6 ED Visits in 6 Months - [facility] - Has Care Guidelines - [facility] - 2 Visits in 30 Days CARE PROVIDERS TIEN NICHOLSON Hospitalist 05/28/2018-Current PHONE: Unknown Karena has no Care Guidelines for this patient. Care History Medical/Surgical 05/28/2018 [facility] - Patient is currently established with [facility]. If patient is seen in the ED during business hours. Please contact [facility] at [facility]. Care Recommendation: This patient has had 5 or more Emergency Department visits in the last 12 months.\T\nbsp; Patient requires education on the scope and purpose of the ED as an acute care provider not a Primary Care Provider and should not be utilized for chronic conditions.\T\nbsp; These are guidelines and the provider should exercise clinical judgment when providing care. E.D. VISIT COUNT (12 MO.) 1 [facility] 6 [facility] TOTAL 7 NOTE: Visits indicate total known visits. ED/UCC VISIT TRACKING (12 MO.) 06/04/2018 06:07 [facility] TYPE: Emergency COMPLAINT: - SOB 05/26/2018 11:57 [facility] DIAGNOSES: - Acute respiratory distress - Chest pain, unspecified - Other ascites - Pleural effusion, not elsewhere classified 05/26/2018 07:23 [facility] TYPE: Emergency COMPLAINT: - FLU SYMPTOMS DIAGNOSES: - Allergy status to other drugs, medicaments and biological substances status - Other long term care administrator (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 - Radiographic dye allergy status - Dependence on renal dialysis - Pleural effusion, not elsewhere classified - Allergy status to narcotic agent status - Shortness of breath 05/25/2018 11:53 [facility] TYPE: Emergency COMPLAINT: - SOB/COUGH DIAGNOSES: - Dependence on renal dialysis - Shortness of breath - Allergy status to narcotic agent status - Pneumonia, unspecified organism - Other longterm (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 - Radiographic dye allergy status - Pleural effusion, not elsewhere classified - Allergy status to other drugs, medicaments and biological substances status 05/10/2018 07:20 [facility] TYPE: Emergency COMPLAINT: - PREVIOUS BLOODY NOSE DIAGNOSES: - Epistaxis - Other long term care administrator (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 - End stage renal [...] uncomplicated - Epigastric pain - Other long term care administrator (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 09/16/2017 23:06 [facility] [place] TYPE: Emergency COMPLAINT: - BP PROBLEM,RENAL FAILURE DIAGNOSES: - Chronic kidney disease, unspecified - Dependence on renal dialysis - Pain, unspecified - Allergy status to narcotic agent status - Nicotine dependence, unspecified, uncomplicated - Other longterm (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 - Elevated blood-pressure reading, without diagnosis of hypertension - Patient's noncompliance with renal dialysis - Hypertensive chronic kidney disease with stage 1 through stage 4 chronic kidney disease, or unspecified chronic kidney disease - Radiographic dye allergy status INPATIENT VISIT TRACKING (12 MO.) [facility] TYPE: General Medicine DIAGNOSES: - Acute respiratory distress - Dependence on renal dialysis - Hyperkalemia - Chest pain, unspecified - Pleural effusion, not elsewhere classified - Other ascites - Acute systolic (congestive) heart failure - Other disorders of phosphorus metabolism - End stage renal disease - Anemia in chronic kidney disease - Other disorders of plasma-protein metabolism, not elsewhere classified - Other specified personal risk factors, not elsewhere classified [email or web address]
[2018-06-04] MEDS ORDERED: ISOSORBIDE DINI20 MG PO (06:24)
[2018-06-04] MEDS ORDERED: METOPROLOL SUCC25 MG PO (06:25)
[2018-06-04] MEDS ORDERED: HYDRALAZINE HCL50 MG PO (06:25)
[2018-06-04] MEDS ORDERED: PANTOPRAZOLE SO40 MG PO (06:26)
[2018-06-04] MEDS ORDERED: RENVELA800 MG PO (06:27)
--- NOTE | 2018-06-05 15:21 | EKG ---
[facility] [address] [facility] [place] [address] Signed Normal sinus rhythm Possible Left atrial enlargement Borderline ECG When compared with ECG of 28-JAN-2017 22:10, No significant change was found Confirmed by REYNA POSEY DO ([id number]) on 06/05/2018 3:21:25 PM Electronically Signed By: REYNA POSEY DO 06/05/18 1521 PATIENT NAME: CONOR LOUISE Electrocardiogram DATE OF : 89 PHYSICIAN: REYNA POSEY DO REPORT #: [id number] REPORT IS CONFIDENTIAL AND NOT TO BE RELEASED WITHOUT AUTHORIZATION
== END 2018-06-04 08:25 | disposition home or self-care (01) ==
LOC: ED 06:06
DX: R06.00 Dyspnea, unspecified (principal); B97.4 Respiratory syncytial virus as the cause of diseases classified elsewhere; Z91.041 Radiographic dye allergy status; Z88.5 Allergy status to narcotic agent; Z88.8 Allergy status to other drugs, medicaments and biological substances; Z79.899 Other long term (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
CPT/HCPCS: 71045; 80053; 84100; 85025; 93005; 93010; 94640; 96374; 99285-25; J2550

== ENCOUNTER 2018-06-11 07:54 | Emergency (ER) | payer MEDICARE, OTHER ==
[~2018-06-11] VITALS: Ht 170.2 cm; Wt 66.0 kg
--- OUTSIDE RECORDS SUMMARY | ~2018-06-11 | XMS | Clinical Summary ---
Demographics + + + | Address | [facility] [address] | | | [place] [address] | + + + | Home Phone | | + + + | Preferred Language | Unknown | + + + | Marital Status | Single | + + + | Anglican Affiliation | Unknown | + + + | Race | Unknown | + + + | Ethnic Group | Unknown | + + + Author + + + | Author | [facility] | | | and Josephana | + + + | Organization | [facility] | | | and Josephana [...] Team Providers + +------+ + | Care Music Education Adjunct Professor Name | Role | Phone | + [...] Morphine | Itching, Rash | Medium | 02/21/20 | | | | | | 14 | [...] | | + + + +---------+------+------+-------+ | albuterol 90 | Inhale 2 puffs into | 1 | 11 | 07/1 | | Activ | | mcg/puff inhaler | the lungs every 6 | Inhaler | | 7/20 | | e | | | hours as needed for | | | 17 | | | | | Wheezing. | | | | | | + + + +---------+------+------+-------+ | clopidogrel | Take 1 tablet by | 30 | 11 | 07/1 | | Activ | | (PLAVIX) 75 mg | mouth Daily. | tablet | | 7/20 | | e | | tablet | | | | 17 | | | + + + +---------+------+------+-------+ | norethindrone | Take 1 tablet by | 28 | 11 | 07/1 | | Activ | | (MICRONOR) 0.35 MG | mouth Daily. | tablet | | 7/20 | | e | | tablet | | | | 17 | | | + + + +---------+------+------+-------+ | 27-0.8 mg | Take 1 tablet by | 30 | 11 | 07/1 | | Activ | | multivitamin tablet | mouth Daily. | tablet | | 7/20 | | e | | | | | | 17 | | | + + + +---------+------+------+-------+ | epoetin jenna | Inject 3,000 Units | | 0 | | | Activ | | (EPOGEN,PROCRIT) | under the skin Three | | | | | e | | 3,000 units/mL | times a week. | | | | | | | injection | | | | | | | + + + +---------+------+------+-------+ | hydrOXYzine | Take 1 tablet by | 60 | 1 | 10/2 | | Activ | | (ATARAX) 50 MG | mouth nightly as | tablet | | 3/20 | | e | | tablet | needed for Itching. | | | 17 | | | + + + +---------+------+------+-------+ | raNITIdine | Take 1 capsule by | 30 | 11 | 02/0 | | Activ | | (ZANTAC) 300 MG | mouth every evening. | capsule | | 5/20 | | e | | capsule | | | | 18 | | | + + + +---------+------+------+-------+ | sevelamer | Take 4 tablets by | 450 | 11 | 08/0 | | Activ | | carbonate (RENVELA) | mouth with meals and | tablet | | 7/20 | | e | | 800 mg tablet | 3 tablets with | | | 18 | | | | | snacks | | | | | | [...] | | | | | renal disease) ([facility]) | protocol | | | | | [...] tablet by | 90 | 3 | 02/0 | | Activ | | 100 MG tablet | mouth Daily. | tablet | | 4/20 | | e | | | | | | 19 | | | + + + +---------+------+------+-------+ Active Problems + + + | Problem | Noted Date | + + + | Awaiting kidney transplant status | 03/10/2014 | + + + + + | Overview: Active Kidney Transplant Waiting List at [facility]: | | 03/07/2014 | + + [...] | | Treated by Dr. Joy, pediatric dental hygienist. 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 ESRD in 2012, started peritoneal dialysis in 2012. Switched | | ot hemodialysis in July 2013. Current Access: Right chest | | catheter. Other Access: Left radial-cephalic AVF created | | 02/24/14, primary failure (clotted on 03/07/14, attempted declot | | but reclotted). Listed at [facility] for kidney transplant - status | | ACTIVE. | + + + +---+ | Anemia in ESRD (end-stage renal disease) | | + +---+ | Secondary hyperparathyroidism | | + +---+ | Obesity | | + +---+ Encounters +--------+ + + + + | Date | Type | Specialty | Care Team | Description | +--------+ + + + + | 04/23/ | Off-Site | | Jorje Camp | ESRD (end stage | | 2018 | Visit | | M, DO | renal disease) (HCC) | | | | | | (Primary Dx) | +--------+ + + + + | 04/09/ | Orders Only | | Jorje Camp | | | 2018 | | | M, DO | | +--------+ + + + + from [...] | | TRIVALENT(PED/ADOL/A | | | | DULT)SEAKT | | | + + + + [...] + + + | Blood Pressure | 147/94 | 04/23/20181836 PST | + + + + | Pulse | 73 | 03/05/2014823 PST | + + + + | Temperature | 36.2 C (97.2 F) | 04/23/20181836 PST | + + + + | Respiratory Rate | 11 | 03/05/2014823 PST | + + + + | Oxygen Saturation | 99% | 03/05/2014823 PST | + + + + | Inhaled Oxygen | - | - | | Concentration | | | + + + + | Weight | 97.5 kg (215 lb) | 02/24/2014599 PST | + + + + | Height | 165.1 cm (5' 5") | 02/24/2014599 PST | + + + + | Body Mass Index | 35.78 | 02/24/2014599 PST | + + + + Plan of [...] + | Vaccine: Influenza | Completed | 11/24/2017, 12/13/2012 | | + + + + [...] +--------+ +---------+--------+ | MEDICARE | MEDICA | [id number] | 05/05/19 | [phone] | | Medica | | | RE | | 13-Pre | 5 | | re | | | PART A | | sent | | | | | | AND B | | | | | | + +--------+ +--------+ +---------+--------+ | MODA HEALTH PLAN | MODA | [id number] | | [phone] | | Medica | | MEDICAID HMO [...] | [birth year] | [address] | | | al/Fam | | 1994 | [phone] | [place] | | | [place] | | | 9 (Home) | [address] | + +--------+ +--------+ + + | Cory Weldon | Person | Father | [birth year] | | [address] [facility] | | | al/Fam | | 1970 | [phone] | [place] [address] | | | [place] | | | 9 (Home) | | + +--------+ +--------+ + + Advance Directives Patient has advance care planning documents, and code status on file. For more information, please contact:[facility] and [place] [address] + + + + + | Code Status | Date | Date | Comments | | | Activated | Inactivated | | + + + + + | Full Code | 02/24/2014 | 02/24/2014 | | | | 11:17 | 14:29 | | + + + + +
--- OUTSIDE RECORDS SUMMARY | ~2018-06-11 | XMS | Encounter Summary ---
Demographics + + + | Address | [address] | | | [place] [address] | + + + | Home Phone [...] + | Author | [facility] | | | and Josephana | + + + | Organization | [facility] | | [...] Team Providers + +------+ + | Care Administrative Job Titles Name | Role | Phone | + [...] | | [address] | [place] | | | | | [place], [place] | [place], [place] | | | | | [address] | [address] | | | | | [phone] | | | +--------+ + + + [...]
--- OUTSIDE RECORDS SUMMARY | ~2018-06-11 | XMS | Encounter Summary ---
Demographics + + + | Address | [address] | | | [place] [address] | + + + | Home Phone [...] | [facility] | | | and Josephana | + + + | Organization | [facility] | | [...] | | stage renal | [address] | [address] [place] [address] | | | | | disease) | Shun Griffin | [place] | | | | | (HCC) | [address] | [address] | | | | | Anemia in | [place], [place] | [place], [place] | | | | | ESRD | [address] | [address] Phone: | | | | | (end-stage | Phone: | [phone] | | | | | renal | [phone] | Fax: | | | | | disease) | Fax: | [phone] | | | | | ([facility]) | [phone] | | | | | | Procedures | | | | | | | ID ESRD | | | | | | [...] M, DO 301 | renal disease) ([facility]) | | | | [address] | [place], [address] | (Primary Dx) | | | | [place] | [place] | | | | | [address] | [address] | | | | | [phone] | | | +--------+ + + + [...] Will recheck her in 2 weeks. : [place] Fina Alonso MD, PhD documented in this e ncounter Plan of Treatment Not on filedocumented as of this encounter Visit Diagnoses + + | Diagnosis | + + | ESRD (end stage renal disease) (HCC) - Primary End stage renal disease | + + documented in this encounter"
--- OUTSIDE RECORDS SUMMARY | ~2018-06-11 | XMS | Clinical Summary ---
Demographics + + + | Address | [address] | | | [place] [address] | + + + | Home Phone [...] | | | | | [place] [address] | | + + + + + | Thania Mallory | ECON | [address] | | | | | [place] [address] | | + + + + + | Deidra Weldon | ECON | [address] | | | | | [place] | | | | | [address] | | + + + + + Care Team Providers + +------+ + | Care Core Carrier Name | Role | Phone | + +------+ + | Jonathan Alonso MD | PP | | + +------+ + Source Comments DANILO is fully live on both EpicCare Ambulatory and EpicCare InPatient.Pending Sale To [facility] Allergies + + + + + + [...] Denise | | | | | | [place], [place] | | | | | | [address] | | | | | | [phone] | | | | | | | [...] | re | [address] | [place] [address] | | | B | | | | | + +--------+ +--------+ + + | BUSINESS OFFICE ASSOCIATE MEDICAID | BUSINESS OFFICE ASSOCIATE | xxxxxxxx | Medica | | | | | [place] | | id | | | | | [place] | | | | | + +--------+ +--------+ + + | MEDICARE RENAL | MEDICA | [id number] | Agency | | RENAL DEPT [id number] | | RECIPIENT EVAL | RE | | | | [place] [address] | | | RENAL | | | [...] | | al/Fam | | 1994 | [phone] | [address] [place] | | | [place] | | | [address] Home: | [address] | | | | | | | | | | | | | [phone] | | | | | | [address] | | + +--------+ +--------+ + + | CORY ALVES | Kisha | Mother | [birth year]06[birth year] | Home: | [address] # | | | l | | 1899 | [phone] | [address] [place] | | | [place] | | | [address] | [address] | | | g | | | | | + +--------+ +--------+ + +
--- OUTSIDE RECORDS SUMMARY | ~2018-06-11 | XMS | Encounter Summary ---
Demographics + + + | Address | [address] | | | [place] [address] | + + + | Home Phone [...] | [facility] | | | and [place] | + + + | Organization | [facility] | | [...] Providers + +------+ + | Care Camp Advisor Name | Role | Phone | [...] | | stage renal | [address] | [address] [place] [address] | | | | | disease) | Shun Griffin | Jaciel Gotti | | | | | (HCC) | [address] | [address] | | | | | Anemia in | [place], [place] | [place], [place] | | | | | ESRD | [address] | [address] Phone: | | | | | (end-stage | Phone: | [phone] | | | | | renal | [phone] | Fax: | | | | | disease) | Fax: | [phone] | | | | | ([facility]) | [phone] | | | | | | Procedures | | | | | | | [place] ESRD | | | | | | [...] | M, DO [address] | renal disease) ([facility]) | | | | [address] | [place], [place] [address] | (Primary Dx) | | | | [place] | [place] | | | | | [phone] | [address] | | | | | [phone] | | | +--------+ + + + [...] Will recheck her in 2 weeks. : Laurel iFna Alonso MD, PhD documented in this e ncounter Plan of Treatment Not on filedocumented as of this encounter Visit Diagnoses + + | Diagnosis | + + | ESRD (end stage renal disease) (HCC) - Primary End stage renal disease | + + documented in this encounter"
--- OUTSIDE RECORDS SUMMARY | ~2018-06-11 | XMS | Encounter Summary ---
Demographics + + + | Address | [address] | | | [place] [address] | + + + | Home Phone [...] + + + | Author | [facility] | + + + | Organization | [facility] | + + + | Address [...] | | | | | [place] [address] | | + + + + + | Wilson De Guzman | ECON | Unknown | | + + + + + Care Team Providers + +------+ + | Care Senior Case Manager Name | Role | Phone | + +------+ + | Tien Nicholson MD | PCP | | + +------+ + Reason for Visit + + + | Reason | Comments | + + + | Shortness of Breath | | + + + | Referral | [facility] | + + + Auth/Cert +--------+--------+ + + + + | Status | Reason | Specialty | Diagnoses / | Referred By | Referred To | | | | | Procedures | Contact | Contact | +--------+--------+ + + + + | | | Internal | Diagnoses | | [facility] 4th | | | | Medicine | Acute | | [address] | | | | | respiratory | | [address] | | | | | distress | | [address] | | | | | Other | | [place], [place] | | | | | ascites | | [address] Phone: | | | | | Pleural | | [phone] | | | | | effusion on | | Fax: | | | | | right Chest | | [phone] | | | | | pain, | | | | | | | unspecified | | | | | | | type | | | +--------+--------+ + + + + Encounter Details +--------+ + + + + | Date | Type | Department | Care Team | Description | +--------+ + + + + | 05/26/ | Hospital | [facility] | Aneudy Hunter, | Pleural effusion on | | 2019 - | Encounter | [facility] 4th | [address] | right (Primary Dx); | | | | [facility] | [place] [address] | Chest pain, | | 06/01/ | | [address] | [phone] [place], | unspecified type; | | 2019 | | [place] [address] | MD May[place] [address] | Other ascites; Acute | | | | [phone] | [address] | respiratory | | | | | [place] [address] | distress; End-stage | | | | | [phone] | renal disease on | | | | | | hemodialysis ([facility]); | | | | | Anthony Belcher MD | Hyperkalemia; | | | | | [address] | Hyperphosphatemia; | | | | | [place] [address] | At high risk for | | | | | [phone] | electrolyte | | | | | | imbalance; Acute | | | | | Darell Kowalski MD | systolic CHF | | | | | [address] | (congestive heart | | | | | [place] [address] | failure) ([facility]); | | | | | [phone] | Hypoalbuminemia; | | | | | | Anemia in ESRD | | | | | | (end-stage renal | | | | | | disease) ([facility]); ESRD | | | | | [...] note may be different from pierre coleman. [facility] Service: Hospitalist Physician Discharge Summary Pt: [...] 17. The mitral valve is normal. 18. Qisd-gi-pnzfj ate eccentric mitral regurgitation is present. 19. [...] stain and cultures negative so far and fl so had high volume paracentesis 4 L [...] hyperkalemia with that. I discussed with the gill box tender as Follow Up Labs/Imaging and Monitoring: Cardiology [...] Component Value Units Date/Time Culture, Body Fluid [[id number]] Collected: 05/26/18 1412 Specimen: Body Fluid from Pleural Fluid Updated: 05/30/18 0733 Specimen Description PLEURAL FLUID GRAM STAIN WBC'S SEEN GRAM STAIN NO ORGANISMS SEEN GRAM STAIN STAIN PERFORMED ON CYTOSPIN CULTURE NO GROWTH 4 DAYS Culture, Body Fluid [[id number]] Collected: 05/26/18 1513 Specimen: Other from Ascites Fluid Updated: 05/30/18 0732 Specimen Description ASCITES FLUID GRAM STAIN STAIN PERFORMED ON CYTOSPIN GRAM STAIN WBC'S SEEN GRAM STAIN NO EPITHELIAL CELLS SEEN GRAM STAIN NO ORGANISMS SEEN CULTURE NO GROWTH 4 DAYS Gram stain [[id number]] Collected: 05/29/18 1256 Specimen: Sputum from Thoracic Fluid Updated: 05/29/18 2339 Specimen Description THORACIC FLUID CULTURE 1+ WBC'S SEEN NO ORGANISMS SEEN Lactate dehydrogenase, body fluid [[id number]] Collected: 05/29/18 1256 Specimen: Body Fluid from Pleural, Right Updated: 05/29/18 1619 FLUID LDH 151 U/L Cholesterol, body fluid [[id number]] Collected: 05/29/18 1256 Specimen: Body Fluid from [...] Tien Nicholson MD [address] [place] [address] In 1 week Carolina Mahmood DO [address] [place] [address] In 1 week Daniela Ibarra MD [address] [place] [id number] In 1 week Discharge took more than 35 minutes, to include final examination, discussion of admission, and preparation of prescriptions, instructions for ongoing care, follow up and dictation of summary. Signed: DARELL KOWALSKI MD 06/01/2018 9:59 AM Dictation software, Clickability, used which may contain error for similar [...] of this encounter Progress Notes Tino Paiz, RESTAURANT RECRUITER - 06/01/2018 3:06 PM PDTFormatting of this note may be different maxim m the original. [facility] Department of Respiratory Snf Oxygen Evaluation (Evaluation is valid for 48 [...] note may be different from the original. [facility] Service: NEPHROLOGY Dialysis/ Progress Note Dara Louise 23 y.o. [id number] female [facility] Day: LOS: 6 days Patient [...] FISTULA; Surgeon: Rik Simon MD; Location: [facility] MAIN OR; Service: Vascula r; Laterality: Left; cephalic AV FISTULA REPAIR Left 03/07/2014 Procedure: AV FISTULA - GRAFT REPAIR/REVISION; Surgeon: Rik Simon MD; Location: [facility] IN OR; Service: Vascular; Laterality: Left; DECLOT GRAFT Left 03/07/2014 Procedure: GRAFT - DECLOT; Surgeon: Rik Simon MD; Location: [facility] MAIN OR; Service: Vas cular; Laterality: Left; DIALYSIS FISTULA CREATION N/A 04/08/2014 Procedure: DIALYSIS CATHETER - INSERTION; Surgeon: Rik Simon MD; Location: [facility] OR ; Service: Vascular; Laterality: N/A; tunneled catheter LAPAROSCOPIC PERITONEAL DIALYSIS CATHETER INSERTION x2 LAPAROSCOPIC PERITONEAL DIALYSIS CATHETER INSERTION Right 07/2013 current dialysis access MWF dialysis RENAL BIOPSY SUPERFICIALIZATION OF AV FISTULA Left 06/24/2014 Procedure: AV FISTULA - SUPERFICIALIZATION; Surgeon: Rik Simon MD; [facility] radiologist report and is used for image [facility] only Us Abdomen Limited Result Date: 05/28/2018 [...] 17. The mitral valve is normal. 18. Hpex-vi-gwhekhxk eccentric mitral regurgitation i s present. 19. [...] mitral valve is normal. Mitral Kait ve: Txna-ws-pcflzqip eccentric mitral regurgitation is present. Tricuspid Valve: [...] maxP.08 mmHg TR Vmax: 2.7 4 m/s Cushion Mat Maker: MOO Authenticated by: Robel Yusuf MD Report [...] 17. The mitral valve is normal. 18. Ejim-kn-spzlb ate eccentric mitral regurgitation is present. 19. [...] pleural spac e is punctured with an 8-[place] thoracentesis catheter. Fluid is aspirated without complicat [...] earlier and charting completed later Dictation software, Clickability, used which may contain error for similar [...] put on "an antibiotic" for pneumonia at [facility] ED. Was throwing up & could [...] the prelim submitted orders, MWF No acute FOREIGN LANGUAGE INTERPRETER indication ESTEFANY as indicated with HD Protein [...] may be different from pierre quarles original. [facility] Service: Hospitalist Progress Note Pt: Dara [...] Component Value Units Date/Time Culture, Body Fluid [[id number]] Collected: 05/26/18 1412 Specimen: Body Fluid from Pleural Fluid Updated: 05/30/18 0733 Specimen Description PLEURAL FLUID GRAM STAIN WBC'S SEEN GRAM STAIN NO ORGANISMS SEEN GRAM STAIN STAIN PERFORMED ON CYTOSPIN CULTURE NO GROWTH 4 DAYS Culture, Body Fluid [[id number]] Collected: 05/26/18 1513 Specimen: Other from Ascites Fluid Updated: 05/30/18 0732 Specimen Description ASCITES FLUID GRAM STAIN STAIN PERFORMED ON CYTOSPIN GRAM STAIN WBC'S SEEN GRAM STAIN NO EPITHELIAL CELLS SEEN GRAM STAIN NO ORGANISMS SEEN CULTURE NO GROWTH 4 DAYS Gram stain [[id number]] Collected: 05/29/18 1256 Specimen: Sputum from Thoracic Fluid Updated: 05/29/18 2339 Specimen Description THORACIC FLUID CULTURE 1+ WBC'S SEEN NO ORGANISMS SEEN Lactate dehydrogenase, body fluid [[id number]] Collected: 05/29/18 1256 Specimen: Body Fluid from Pleural, Right Updated: 05/29/18 1619 FLUID LDH 151 U/L Cholesterol, body fluid [[id number]] Collected: 05/29/18 1256 Specimen: Body Fluid from Pleural, Right Updated: 05/29/18 1619 FLUID CHOLESTEROL 56 mg/dL Sputum culture [[id number]] Collected: 05/27/182014 Specimen: Sputum from Sputum Updated: [...] 17. The mitral valve is normal. 18. Ndzp-va-eauhq ate eccentric mitral regurgitation is present. 19. [...] N ot in any kind of distress. student services director to initiate the discharge plan. Possible dischar [...] MD, FACP 05/31/2018 9:42 AM Dictation software, Clickability, used which may contain error for similar sounding words even af ter review. Personal communication requested for any clarification. Portions of this chart may have been copied from previous notes for continuity of care purp Darell Segundo MD - 05/30/2018 9:09 AM PDTFormatting of this note may be different from pierre coleman. [facility] Service: Hospitalist Progress Note Pt: Dara Louise AGE/SEX: 23 y.o. female ROOM: [facility]/4441-1 : 1995 PCP: TIEN NICHOLSON ADMIT DATE: [...] Component Value Units Date/Time Culture, Body Fluid [[id number]] Collected: 05/26/18 1412 Specimen: Body Fluid from Pleural Fluid Updated: 05/30/18 0733 Specimen Description PLEURAL FLUID GRAM STAIN WBC'S SEEN GRAM STAIN NO ORGANISMS SEEN GRAM STAIN STAIN PERFORMED ON CYTOSPIN CULTURE NO GROWTH 4 DAYS Culture, Body Fluid [[id number]] Collected: 05/26/18 1513 Specimen: Other from Ascites Fluid Updated: 05/30/18 0732 Specimen Description ASCITES FLUID GRAM STAIN STAIN PERFORMED ON CYTOSPIN GRAM STAIN WBC'S SEEN GRAM STAIN NO EPITHELIAL CELLS SEEN GRAM STAIN NO ORGANISMS SEEN CULTURE NO GROWTH 4 DAYS Gram stain [[id number]] Collected: 05/29/18 1256 Specimen: Sputum from Thoracic Fluid Updated: 05/29/18 2339 Specimen Description THORACIC FLUID CULTURE 1+ WBC'S SEEN NO ORGANISMS SEEN Lactate dehydrogenase, body fluid [[id number]] Collected: 05/29/18 1256 Specimen: Body Fluid from Pleural, Right Updated: 05/29/18 1619 FLUID LDH 151 U/L Cholesterol, body fluid [[id number]] Collected: 05/29/18 1256 Specimen: Body Fluid from Pleural, Right Updated: 05/29/18 1619 FLUID CHOLESTEROL 56 mg/dL Sputum culture [[id number]] Collected: 05/27/182014 Specimen: Sputum from Sputum Updated: [...] 17. The mitral valve is normal. 18. Atwx-wb-mbvrc ate eccentric mitral regurgitation is present. 19. [...] MD, FACP 05/30/2018 9:10 AM Dictation software, Clickability, used which may contain error for similar sounding words even af ter review. Personal communication requested for any clarification. Portions of this chart may have been copied from previous notes for continuity of care purp Carolina Camarillo, - 05/29/2018 7:56 PM PDTFormatting of this note may be different from e original. [facility] Service: Cardiology Progress Note Hospital Day: [...] Hospitalist Progress Note Dara Louise 23 y.o. [id number] [id number] female [facility] Day: LOS: 3 days Patient Summary: 23-year-old female with past medical history of end-stage renal dis ease on hemodialysis Monday, hypertension, anemia of chronic disease who we nt to [facility] with increasing shortness of breath [...] Value Units Date/Time Lactate dehydrogenase, body fluid [[id number]] Collected: 05/29/18 125 Specimen: Body Fluid from Pleural, Right Updated: 05/29/181314 Cholesterol, body fluid [[id number]] Collected: 05/29/18 125 Specimen: Body Fluid from Pleural, Right Updated: 05/29/181314 Gram stain [[id number]] Collected: 05/29/18 125 Specimen: Sputum from OTHR-w source desc (F6) Updated: 05/29/18 1309 Sputum culture [[id number]] Collected: 05/27/182014 Specimen: Sputum from Sputum Updated: 05/29/18 0947 Specimen Description SPUTUM GRAM STAIN LESS THAN 10 WBCS/LPF GRAM STAIN LESS THAN 10 SEC/LPF GRAM STAIN NO ORGANISMS SEEN CULTURE 1+ NORMAL UPPER RESPIRATORY ALESSANDRO HIV 1/2 Ab reflex [[id number]] Collected: 05/28/18 1236 Specimen: Blood Updated: 05/29/1842 HIV1/HIV2 NON REACTIVE Protime-INR [[id number]] Collected: 05/29/18851 Specimen: Blood Updated: 05/29/18939 INR 1.5 APTT [[id number]] Collected: 05/29/18851 Specimen: Blood Updated: 05/29/18939 APTT 29 seconds Culture, Body Fluid [[id number]] Collected: 05/26/18 1513 Specimen: Other from Ascites Fluid Updated: 05/29/18919 Specimen Description ASCITES FLUID GRAM STAIN STAIN PERFORMED ON CYTOSPIN GRAM STAIN WBC'S SEEN GRAM STAIN NO EPITHELIAL CELLS SEEN GRAM STAIN NO ORGANISMS SEEN CULTURE NO GROWTH 3 DAYS Culture, Body Fluid [[id number]] Collected: 05/26/18 1412 Specimen: Body Fluid from Pleural Fluid Updated: 05/29/1818 Specimen Description PLEURAL FLUID CULTURE NO GROWTH 3 DAYS Comprehensive metabolic panel [[id number]] (Abnormal) Collected: 05/29/18456 Specimen: Blood Updated: 05/29/1816 [...] mL/min/1.73m2 CBC W/Auto Diff (Reflex to Manual) [[id number]] (Abnormal) Collected: 05/29/18456 Specimen: Blood Updated: 05/29/18 [...] 0.05 K/uL MORPHOLOGY 2+ hCG, serum, qualitative [[id number]] Collected: 05/28/18922 Specimen: Blood Updated: 05/28/18 1950 TEST,SERUM NEGATIVE C-reactive protein [[id number]] (Abnormal) Collected: 05/28/18922 Specimen: Blood Updated: 05/28/18 1941 CRP 5.1 (H) mg/dL Sedimentation rate, automated [[id number]] Collected: 05/28/18922 Specimen: Blood Updated: 05/28/18 1734 ESR 2 mm/Hr Hepatitis panel,acute [[id number]] Collected: 05/28/18 1236 Specimen: Blood Updated: 05/28/18 1650 HAV AB,IGM NON REACTIVE HEP B SURFACE AG NON REACTIVE ANTI HEP B CORE,IGM NON REACTIVE HEPATITIS C NON REACTIVE HEPATITIS INTERP No serologic evidence of HAV, HBV, or HCV infection. Troponin I [[id number]] Collected: 05/28/18922 Specimen: Blood Updated: 05/28/18 143 TROPONIN I 0.034 ng/mL Troponin I [[id number]] Collected: 05/28/18 1359 Specimen: Blood Updated: 05/28/18 1437 TROPONIN I 0.037 ng/mL Renal function panel [[id number]] (Abnormal) Collected: 05/28/18 1209 Specimen: Blood from Blood Updated: 05/28/18 1302 SODIUM 141 mmol/L POTASSIUM 4.3 mmol/L CHLORIDE 101 mmol/L CO2 29 mmol/L ANION GAP AGAP 15 mmol/L GLUCOSE 78 mg/dL BUN 43 (H) mg/dL CREATININE 7.97 (H) mg/dL CALCIUM 9.1 mg/dL Albumin 3.6 g/dL PHOSPHORUS 6.3 (H) mg/dL EGFR 6 (L) mL/min/1.73m2 CBC W/Auto Diff (Reflex to Manual) [[id number]] (Abnormal) Collected: 05/28/18922 Specimen: Blood Updated: 05/28/18 [...] 0.05 K/uL MORPHOLOGY 1+ Comprehensive metabolic panel [[id number]] (Abnormal) Collected: 05/28/18922 Specimen: Blood Updated: 05/28/181209 [...] (H) U/L EGFR 6 (L) mL/min/1.73m2 TSH [[id number]] Collected: 05/28/18922 Specimen: Blood Updated: 05/28/18 1210 TSH 1.270 uIU/mL Pathologist consult [[id number]] Collected: 05/26/18 1412 Updated: 05/28/18 1113 Pathologist Consult -- Hepatitis panel, chronic [[id number]] (Abnormal) Collected: 05/27/181757 Updated: 05/27/182030 Hep A Total Ab REACTIVE (A) HEP B SURFACE AG NON REACTIVE HEP B CORE AB,TOTAL NON REACTIVE HEP B SURFACE ANTIBODY 3.27 (H) IV HEPATITIS C NON REACTIVE HEPATITIS INTERP Current or past HAV infection. Past HBV infection or vaccination. No ser ologic evidence of HCV infection. CBC w/auto diff (reflex to manual) [[id number]] (Abnormal) Collected: 05/27/18424 Specimen: Blood Updated: 05/27/18710 [...] K/uL MORPHOLOGY 2+ Platelet Estimate DECREASED Phosphorus [[id number]] (Abnormal) Collected: 05/27/18424 Specimen: Blood Updated: 05/27/18628 PHOSPHORUS 8.0 (H) mg/dL Basic Metabolic Panel [[id number]] (Abnormal) Collected: 05/27/18424 Specimen: Blood Updated: 05/27/18628 SODIUM 135 mmol/L POTASSIUM 5.9 (H) mmol/L CHLORIDE 96 (L) mmol/L CO2 25 mmol/L ANION GAP AGAP 20 mmol/L GLUCOSE 74 mg/dL BUN 51 (H) mg/dL CREATININE 9.2 (H) mg/dL BUN/CREAT 6 CALCIUM 9.4 mg/dL EGFR 5 (L) mL/min/1.73m2 Magnesium [[id number]] (Abnormal) Collected: 05/27/18424 Specimen: Blood Updated: 05/27/18628 MAGNESIUM 2.7 (H) mg/dL Brain natriuretic peptide [[id number]] (Abnormal) Collected: 05/27/18424 Specimen: Blood Updated: 05/27/18 0546 BRAIN NATRIURETIC PEPTIDE 1,153.92 (H) pg/mL Respiratory Filmarray [[id number]] (Abnormal) Collected: 05/26/181805 Specimen: Nasopharynx/Oropharynx Updated: 05/26/182141 [...] performed by Molecular Methodology MRSA by PCR [[id number]] Collected: 05/26/181805 Specimen: Nasopharyngeal from Nares(Nose) Updated: 05/26/182025 SOURCE NARES(NOSE) MRSA PCR NEGATIVE Procalcitonin [[id number]] (Abnormal) Collected: 05/26/181726 Updated: 05/26/18 1839 PROCALCITONIN 0.76 (H) ng/mL Albumin, Body Fluid [[id number]] Collected: 05/26/18 141 Specimen: Body Fluid from Lung, Right Lower Lobe Updated: 05/26/18 172 FLUID ALBUMIN 2.3 g/dL Total Protein, Body Fluid [[id number]] Collected: 05/26/18 141 Specimen: Body Fluid from Lung, Right Lower Lobe Updated: 05/26/18 172 FLUID TOTAL PROTEIN 4.2 g/dL FLUID TP SOURCE PLEURAL FLUID Cell count, Body Fluid [[id number]] Collected: 05/26/18 141 Specimen: Body Fluid from Lung, Right Lower Lobe Updated: 05/26/18 170 FLUID TYPE PLEURAL FLUID COLOR SAMMIE APPEARANCE CLOUDY RBC'S 3,000 /mm3 TOTAL NUCLEATED CELLS 253 /mm3 NEUTROPHILS 22 % LYMPHOCYTES 8 % MONOCYTES/MACROPHAGES 65 % Mesothelial Cells 5 % CELLS COUNTED 100 pH, Body Fluid [[id number]] Collected: 05/26/18 141 Specimen: Body Fluid from [...] radiologist report and is used for image [facility] only Us Abdomen Limited Result Date: 05/28/2018 [...] 17. The mitral valve is normal. 18. Vyhs-hd-kpaikdoh eccentric mitral regurgitation i s present. 19. [...] mitral valve is normal. Mitral Kait ve: Kkbl-xb-itjiliau eccentric mitral regurgitation is present. Tricuspid Valve: [...] maxP.08 mmHg TR Vmax: 2.7 4 m/s Cushion Mat Maker: MOO Authenticated by: Robel Yusuf MD Report [...] 17. The mitral valve is normal. 18. Umhg-tb-kvdke ate eccentric mitral regurgitation is present. 19. [...] put on "an antibiotic" for pneumonia at [facility] ED. Was throwing up & could [...] the prelim submitted orders, MWF No acute FOREIGN LANGUAGE INTERPRETER indication ESTEFANY as indicated with HD Protein [...] Hospitalist Progress Note Dara Louise 23 y.o. [id number] female [facility] Day: LOS: 2 days Patient Summary: 23-year-old female with past medical history of end-stage renal dis ease on hemodialysis Monday, hypertension, anemia of chronic disease who we nt to [facility] with increasing shortness of breath [...] Component Value Units Date/Time Culture, Body Fluid [[id number]] Collected: 05/26/18 1518 Specimen: Other from Ascites Fluid Updated: 05/28/18 1225 Specimen Description ASCITES FLUID GRAM STAIN STAIN PERFORMED ON CYTOSPIN GRAM STAIN WBC'S SEEN GRAM STAIN NO EPITHELIAL CELLS SEEN GRAM STAIN NO ORGANISMS SEEN CULTURE NO GROWTH 2 DAYS Culture, Body Fluid [[id number]] Collected: 05/26/18 141 Specimen: Body Fluid from Pleural Fluid Updated: 05/28/18 1223 Specimen Description PLEURAL FLUID CULTURE NO GROWTH 2 DAYS Comprehensive metabolic panel [[id number]] (Abnormal) Collected: 05/28/18922 Specimen: Blood Updated: 05/28/18 [...] (H) U/L EGFR 6 (L) mL/min/1.73m2 TSH [[id number]] Collected: 05/28/18922 Specimen: Blood Updated: 05/28/18 1210 TSH 1.270 uIU/mL Pathologist consult [[id number]] Collected: 05/26/18 1412 Updated: 05/28/18 1113 Pathologist Consult -- Troponin I [[id number]] Collected: 05/28/18922 Specimen: Blood Updated: 05/28/18 1055 CBC W/Auto Diff (Reflex to Manual) [[id number]] Collected: 05/28/18922 Specimen: Blood Updated: 05/28/18 09 Sputum culture [[id number]] Collected: 05/27/182014 Specimen: Sputum from Sputum Updated: 05/28/18902 Specimen Description SPUTUM GRAM STAIN LESS THAN 10 WBCS/LPF GRAM STAIN LESS THAN 10 SEC/LPF GRAM STAIN NO ORGANISMS SEEN CULTURE CULTURE IN PROGRESS Hepatitis panel, chronic [[id number]] (Abnormal) Collected: 05/27/181757 Updated: 05/27/182030 Hep A Total Ab REACTIVE (A) HEP B SURFACE AG NON REACTIVE HEP B CORE AB,TOTAL NON REACTIVE HEP B SURFACE ANTIBODY 3.27 (H) IV HEPATITIS C NON REACTIVE HEPATITIS INTERP Current or past HAV infection. Past HBV infection or vaccination. No ser ologic evidence of HCV infection. CBC w/auto diff (reflex to manual) [[id number]] (Abnormal) Collected: 05/27/18424 Specimen: Blood Updated: 05/27/18710 [...] K/uL MORPHOLOGY 2+ Platelet Estimate DECREASED Phosphorus [[id number]] (Abnormal) Collected: 05/27/18424 Specimen: Blood Updated: 05/27/18628 PHOSPHORUS 8.0 (H) mg/dL Basic Metabolic Panel [[id number]] (Abnormal) Collected: 05/27/18424 Specimen: Blood Updated: 05/27/18628 SODIUM 135 mmol/L POTASSIUM 5.9 (H) mmol/L CHLORIDE 96 (L) mmol/L CO2 25 mmol/L ANION GAP AGAP 20 mmol/L GLUCOSE 74 mg/dL BUN 51 (H) mg/dL CREATININE 9.2 (H) mg/dL BUN/CREAT 6 CALCIUM 9.4 mg/dL EGFR 5 (L) mL/min/1.73m2 Magnesium [[id number]] (Abnormal) Collected: 05/27/18424 Specimen: Blood Updated: 05/27/18628 MAGNESIUM 2.7 (H) mg/dL Brain natriuretic peptide [[id number]] (Abnormal) Collected: 05/27/18424 Specimen: Blood Updated: 05/27/18545 BRAIN NATRIURETIC PEPTIDE 1,153.92 (H) pg/mL Respiratory Filmarray [[id number]] (Abnormal) Collected: 05/26/181805 Specimen: Nasopharynx/Oropharynx Updated: 05/26/182 [...] performed by Molecular Methodology MRSA by PCR [[id number]] Collected: 05/26/181805 Specimen: Nasopharyngeal from Nares(Nose) Updated: 05/26/182025 SOURCE NARES(NOSE) MRSA PCR NEGATIVE Procalcitonin [[id number]] (Abnormal) Collected: 05/26/18 1727 Updated: 05/26/18 1839 PROCALCITONIN 0.76 (H) ng/mL Albumin, Body Fluid [[id number]] Collected: 05/26/18 141 Specimen: Body Fluid from Lung, Right Lower Lobe Updated: 05/26/18 1729 FLUID ALBUMIN 2.3 g/dL Total Protein, Body Fluid [[id number]] Collected: 05/26/18 141 Specimen: Body Fluid from Lung, Right Lower Lobe Updated: 05/26/18 1729 FLUID TOTAL PROTEIN 4.2 g/dL FLUID TP SOURCE PLEURAL FLUID Cell count, Body Fluid [[id number]] Collected: 05/26/18 141 Specimen: Body Fluid from Lung, Right Lower Lobe Updated: 05/26/18 1708 FLUID TYPE PLEURAL FLUID COLOR SAMMIE APPEARANCE CLOUDY RBC'S 3,000 /mm3 TOTAL NUCLEATED CELLS 253 /mm3 NEUTROPHILS 22 % LYMPHOCYTES 8 % MONOCYTES/MACROPHAGES 65 % Mesothelial Cells 5 % CELLS COUNTED 100 pH, Body Fluid [[id number]] Collected: 05/26/18 1412 Specimen: Body Fluid from Lung, Right Lower Lobe Updated: 05/26/18 1508 FLUID PH 7.45 Procalcitonin [[id number]] (Abnormal) Collected: 05/26/18 1214 Updated: 05/26/18 1330 PROCALCITONIN 0.56 (H) ng/mL Cardiac Panel [[id number]] (Abnormal) Collected: 05/26/18 1214 Updated: 05/26/18 1312 [...] ng/mL CK-MB Index 2.7 Brain natriuretic peptide [[id number]] (Abnormal) Collected: 05/26/18 1214 Updated: 05/26/18 1254 [...] radiologist report and is used for image [facility] Cardiac Adult Complete Result Date: 05/27/2018 [...] 17. The mitral valve is normal. 18. Bdin-qu-zpphrwox eccentric mitral regurgitation i s present. 19. [...] mitral valve is normal. Mitral Kait ve: Etxo-dn-xigpokqs eccentric mitral regurgitation is present. Tricuspid Valve: [...] maxP.08 mmHg TR Vmax: 2.7 4 m/s Cushion Mat Maker: MOO Authenticated by: Robel Yusuf MD Report [...] 17. The mitral valve is normal. 18. Uurl-cq-kzhpy ate eccentric mitral regurgitation is present. 19. [...] Hospitalist Progress Note Dara Louise 23 y.o. [id number] female [facility] Day: LOS: 1 day Patient Summary: 23-year-old female with past medical history of end-stage renal dis ease on hemodialysis Monday, hypertension, anemia of chronic disease who we nt to [facility] with increasing shortness of breath [...] Date/Time CBC w/auto diff (reflex to manual) [[id number]] (Abnormal) Collected: 05/27/18424 Specimen: Blood Updated: 05/27/18 [...] K/uL MORPHOLOGY 2+ Platelet Estimate DECREASED Phosphorus [[id number]] (Abnormal) Collected: 05/27/18424 Specimen: Blood Updated: 05/27/18 0629 PHOSPHORUS 8.0 (H) mg/dL Basic Metabolic Panel [[id number]] (Abnormal) Collected: 05/27/18424 Specimen: Blood Updated: 05/27/18628 SODIUM 135 mmol/L POTASSIUM 5.9 (H) mmol/L CHLORIDE 96 (L) mmol/L CO2 25 mmol/L ANION GAP AGAP 20 mmol/L GLUCOSE 74 mg/dL BUN 51 (H) mg/dL CREATININE 9.2 (H) mg/dL BUN/CREAT 6 CALCIUM 9.4 mg/dL EGFR 5 (L) mL/min/1.73m2 Magnesium [[id number]] (Abnormal) Collected: 05/27/18424 Specimen: Blood Updated: 05/27/18 0629 MAGNESIUM 2.7 (H) mg/dL Brain natriuretic peptide [[id number]] (Abnormal) Collected: 05/27/18424 Specimen: Blood Updated: 05/27/18 0546 BRAIN NATRIURETIC PEPTIDE 1,153.92 (H) pg/mL Respiratory Filmarray [[id number]] (Abnormal) Collected: 05/26/181805 Specimen: Nasopharynx/Oropharynx Updated: 05/26/182141 [...] performed by Molecular Methodology MRSA by PCR [[id number]] Collected: 05/26/18 180 Specimen: Nasopharyngeal from Nares(Nose) Updated: 05/26/182025 SOURCE NARES(NOSE) MRSA PCR NEGATIVE Procalcitonin [[id number]] (Abnormal) Collected: 05/26/18 1727 Updated: 05/26/18 183 PROCALCITONIN 0.76 (H) ng/mL Culture, Body Fluid [[id number]] Collected: 05/26/18 141 Specimen: Body Fluid from Pleural Fluid Updated: 05/26/18 181 Pathologist consult [[id number]] Collected: 05/26/18 141 Updated: 05/26/18 1742 Albumin, Body Fluid [[id number]] Collected: 05/26/18 141 Specimen: Body Fluid from Lung, Right Lower Lobe Updated: 05/26/18 1729 FLUID ALBUMIN 2.3 g/dL Total Protein, Body Fluid [[id number]] Collected: 05/26/18 141 Specimen: Body Fluid from Lung, Right Lower Lobe Updated: 05/26/18 1729 FLUID TOTAL PROTEIN 4.2 g/dL FLUID TP SOURCE PLEURAL FLUID Cell count, Body Fluid [[id number]] Collected: 05/26/18 141 Specimen: Body Fluid from Lung, Right Lower Lobe Updated: 05/26/18 1708 FLUID TYPE PLEURAL FLUID COLOR SAMMIE APPEARANCE CLOUDY RBC'S 3,000 /mm3 TOTAL NUCLEATED CELLS 253 /mm3 NEUTROPHILS 22 % LYMPHOCYTES 8 % MONOCYTES/MACROPHAGES 65 % Mesothelial Cells 5 % CELLS COUNTED 100 Culture, Body Fluid [[id number]] Collected: 05/26/18 1513 Specimen: Other from Ascites Fluid Updated: 05/26/18 1631 Specimen Description ASCITES FLUID GRAM STAIN STAIN PERFORMED ON CYTOSPIN GRAM STAIN WBC'S SEEN GRAM STAIN NO EPITHELIAL CELLS SEEN GRAM STAIN NO ORGANISMS SEEN CULTURE PENDING pH, Body Fluid [[id number]] Collected: 05/26/18 1412 Specimen: Body Fluid from Lung, Right Lower Lobe Updated: 05/26/18 1508 FLUID PH 7.45 Procalcitonin [[id number]] (Abnormal) Collected: 05/26/181213 Updated: 05/26/18 1330 PROCALCITONIN 0.56 (H) ng/mL Cardiac Panel [[id number]] (Abnormal) Collected: 05/26/181213 Updated: 05/26/18 1312 WBC [...] ng/mL CK-MB Index 2.7 Brain natriuretic peptide [[id number]] (Abnormal) Collected: 05/26/181213 Updated: 05/26/18 1254 BRAIN [...] most likely representing atelectasis. Signed by: MD Lakhwinedr, Florian Sign Date/Time: 05/26/2018 4:[address] [...] radiologist report and is used for image [facility] only PROBLEM LIST Active Problems: ESRD on [...] heparin ANTHONY BELCHER MD 05/27/2018 Jae Gutierres, [facility] - 05/26/2018 6:05 PM PDTRenal Dosing [...] | + +--------+ + + + | [email or web address] CARD PANEL W/O | STAT | 05/26/2018 [...] (H) | 35 - 115 U/L | [facility] | | | | | LABORATORY | + + + + + | AST | 97 (H) | 10 - 45 U/L | [facility] | | | | | LABORATORY | [...] the | | | | | MDRD IDMI traceable | | | | | equation.Testing | | | | | performed at [facility], [address] | | | | | [facility], | | | | | [place] [address] | | | + + + + + + + | Specimen | + + | Blood | + + + + + + + | Performing | Address | City/State/Zipcode | Phone Number | | Organization | | | | + + + + + | [facility] | [address] | [place] [address] | [phone] | | LABORATORY | Blvd. | | [...] performed | | | | | at [facility], [address] | | | | | [facility], | | | | | [place] [address] | | | | |Testing performed at [facility], [address] [place] [address] | | | | | | | | + + + + + + + | Specimen | + + | Blood | + + + + + + + | Performing | Address | City/State/Zipcode | Phone Number | | Organization | | | | + + + + + | [facility] | [address] | [place] [address] | [phone] | | LABORATORY | Blvd. | | [...] (L) | 3.6 - 5.0 g/dL | [facility] | | | | | LABORATORY | [...] | | | | | performed at [facility], [address] | | | | | [address], | | | | | [place] [address] | | | + + + + + + + | Specimen | + + | Blood | + + + + + + + | Performing | Address | City/State/Zipcode | Phone Number | | Organization | | | | + + + + + | [facility] | [address] | [place] [address] | [phone] | | LABORATORY | [address] | | [...] performed | | | | | at [facility], [address] | | | | | [facility], | | | | | [place] [address] | | | | |Testing performed at [facility], [address] [facility], [place] [address] | | | | | | | | + + + + + + + | Specimen | + + | Blood | + + + + + + + | Performing | Address | City/State/Zipcode | Phone Number | | Organization | | | | + + + + + | [facility] | [address] | [place] [address] | [phone] | | LABORATORY | Blvd. | | [...] | | | antibiotic" for pneumonia at [facility]. Was throwing up & could [...] 0.8 | 0.1 - 1.5 mg/dL | [facility] | | | | | LABORATORY | [...] | | | | | performed at [facility], [address] | | | | | [facility], | | | | | [place] [address] | | | + + + + + + + | Specimen | + + | Blood | + + + + + + + | Performing | Address | City/State/Zipcode | Phone Number | | Organization | | | | + + + + + | [facility] | [address] | [place] [address] | [phone] | | LABORATORY | Blvd. | | [...] performed | | | | | at [facility], [address] | | | | | [facility], | | | | | [place] [address] | | | | |Testing performed at [facility], [address] [facility] [place] [address] | | | | | | | | + + + + + + + | Specimen | + + | Blood | + + + + + + + | Performing | Address | City/State/Zipcode | Phone Number | | Organization | | | | + + + + + | [facility] | [address] | [place] [address] | [phone] | | LABORATORY | Blvd. | | [...] + + + + | [facility] | [address] | [place] [address] | | + + + + + Cholesterol, body fluid (05/29/2018 12:56 PM) + + + + + | Component | Value | Ref Range | Performed At | + + + + + | FLUID CHOLESTEROL | 56Comment: This is not a | mg/dL | [facility] | | | ventilating engineer validated | | LABORATORY | | | sample type for this | | | | | method. No reference | | | | | ranges have been | | | | | established.Testing | | | | | performed at [facility], [address] | | | | | [facility], | | | | | [place] [address] | | | + + + + + + + | Specimen | + + | Body Fluid - | | Pleural, Right | + + + + + + + | Performing | Address | City/State/Zipcode | Phone Number | | Organization | | | | + + + + + | [facility] | [address] | [place] [address] | [phone] | | LABORATORY | Blvd. | | | + + + + + Lactate dehydrogenase, body fluid (05/29/2018 12:56 PM) + + + + + | Component | Value | Ref Range | Performed At | + + + + + | FLUID LDH | 151Comment: This is not | U/L | [facility] | | | a ventilating engineer validated | | LABORATORY | | | sample type for this | | | | | method. No reference | | | | | ranges have been | | | | | established.Testing | | | | | performed at [facility], [address] | | | | | [facility], | | | | | [place] [address] | | | + + + + + + + | Specimen | + + | Body Fluid - | | Pleural, Right | + + + + + + + | Performing | Address | City/State/Zipcode | Phone Number | | Organization | | | | + + + + + | [facility] | [address] | [place] [address] | [phone] | | LABORATORY | Blvd. | | [...] + + + + + | [facility] | [address] | [place] [address] | [phone] | | LABORATORY | Blvd. | | [...] | | space is punctured with an 8-[place] thoracentesis catheter. Fluid is | | | [...] the pleural space is punctured with an 8-[place] | | thoracentesis catheter. Fluid is aspirated [...] + + + + + | [facility] | [address] | [place] [address] | | + + + + + APTT (05/29/2018 8:52 AM) + + + + + | Component | Value | Ref Range | Performed At | + + + + + | APTT | 29Comment: Testing | 23 - 32 seconds | [facility] | | | performed at [facility];[address] | [address];[place] | | | | | [address] | | | + + + + + + + | Specimen | + + | Blood | + + + + + + + | Performing | Address | City/State/Zipcode | Phone Number | | Organization | | | | + + + + + | [facility] | [address] | [place] [address] | | + + + + + Protime-INR (05/29/2018 8:52 AM) + + + + + | Component | Value | Ref Range | Performed At | + + + + + | INR | 1.5Comment: REFERENCE | | [facility] | | | RANGE:0.9 - [...] [place];[address] | | | | | [address];[place] | | | | | [address] | | | + + + + + + + | Specimen | + + | Blood | + + + + + + + | Performing | Address | City/State/Zipcode | Phone Number | | Organization | | | | + + + + + | [facility] | [address] | [place] [address] | | + + + + + [...] 14 | 5 - 20 mmol/L | [facility] | | | | | LABORATORY | + + + + + | GLUCOSE | 94Comment: SPECIMEN | 65 - 99 mg/dL | [facility] | | | SLIGHTLY HEMOLYZED | | [...] the | | | | | MDRD [facility] traceable | | | | | equation.Testing | | | | | performed at [facility], [address] | | | | | [facility], | | | | | [place] [address] | | | + + + + + + + | Specimen | + + | Blood | + + + + + + + | Performing | Address | City/State/Zipcode | Phone Number | | Organization | | | | + + + + + | [facility] | [address] | [place] [address] | [phone] | | LABORATORY | Blvd. | | [...] performed | | | | | at [facility], [address] | | | | | [address], | | | | | [place] [address] | | | | |Testing performed at [facility], [address] [place] [address] | | | | | | | | + + + + + + + | Specimen | + + | Blood | + + + + + + + | Performing | Address | City/State/Zipcode | Phone Number | | Organization | | | | + + + + + | [facility] | [address] | [place] [address] | [phone] | | LABORATORY | [address] | | [...] dialysis. Signed by: | | | MD Mejai, Stevo Sign Date/Time: 05/28/2018 9:24 PM | [...] + + + + | [facility] | [address] | [place] [address] | | + + + + + Troponin I (05/28/2018 1:59 PM) + + + + + | Component | Value | Ref Range | Performed At | + + + + + | TROPONIN I | 0.037Comment: 0.04 | 0.00 - 0.04 ng/mL | [facility] | | | ng/mL or [...] performed at | | | | | [facility];[address] | | | | [address];[place] [address] | | | + + + + + + + | Specimen | + + | Blood | + + + + + + + | Performing | Address | City/State/Zipcode | Phone Number | | Organization | | | | + + + + + | [facility] | [address] | [place] [address] | | + + + + + [...] | | | | | performed at [facility], [address] | | | | | [facility], | | | | | [place] [address] | | | + + + + + + + | Specimen | + + | Blood | + + + + + + + | Performing | Address | City/State/Zipcode | Phone Number | | Organization | | | | + + + + + | [facility] | [address] [place] [address] | [place] [address] | [phone] | | LABORATORY | [address] | | [...] performed at | | | | | [facility], [address] [place] [address] | | | | | [place] | | | | | [address] | | | + + + + + + + | Specimen | + + | Blood | + + + + + + + | Performing | Address | City/State/Zipcode | Phone Number | | Organization | | | | + + + + + | [facility] | [address] | [place] [address] | [phone] | | LABORATORY | [address]vd[address] | | | + + + + + Renal function panel (05/28/2018 12:09 PM) + + + + + | Component | Value | Ref Range | Performed At | + + + + + | SODIUM | 141 | 135 - 145 mmol/L | [facility] | + + + + + [...] 9.1 | 8.5 - 10.5 mg/dL | [facility] | + + + + + | Albumin | 3.6 | 3.6 - 5.0 g/dL | [facility] | + + + + + | PHOSPHORUS | 6.3 (H) | 2.3 - 4.8 mg/dL | [facility] | + + + + + | EGFR | 6 (L)Comment: GFR <60: | >60 mL/min/1.73m2 | [facility] | | | CHRONIC KIDNEY [...] [place];[address] | | | | | [address];[place] | | | | | [address] | | | + + + + + + + | Specimen | + + | Blood - Blood | + + + + + + + | Performing | Address | City/State/Zipcode | Phone Number | | Organization | | | | + + + + + | [facility] | [address] | [place] [address] | | + + + + + [...] + + + + | Calculated P [place] | 24 | degrees | [facility] | + + + + + | Calculated R [place] | 24 | degrees | [facility] | + + + + + | Calculated T [place] | 103 | degrees | [facility] [...] + + | [facility] | [address] | [place] [address] | | + + + + + hCG, serum, qualitative (05/28/2018 9:23 AM) + + + + + | Component | Value | Ref Range | Performed At | + + + + + | TEST,SERUM | NEGATIVEComment: Testing | NEGATIVE | [facility] | | | performed at [facility], [facility] | | LABORATORY | | | [address], | | | | | [place] [address] | | | + + + + + + + | Specimen | + + | Blood | + + + + + + + | Performing | Address | City/State/Zipcode | Phone Number | | Organization | | | | + + + + + | [facility] | [address] | [place] [address] | [phone] | | LABORATORY | [address] | | | + + + + + C-reactive protein (05/28/2018 9:23 AM) + + + + + | Component | Value | Ref Range | Performed At | + + + + + | CRP | 5.1 (H)Comment: Testing | <0.5 mg/dL | [facility] | | | performed at [facility], [address] | | LABORATORY | | | [address], | | | | | [place] [address] | | | + + + + + + + | Specimen | + + | Blood | + + + + + + + | Performing | Address | City/State/Zipcode | Phone Number | | Organization | | | | + + + + + | [facility] | [address] | [place] [address] | [phone] | | LABORATORY | [address]vd[address] | | | + + + + + Sedimentation rate, automated (05/28/2018 9:23 AM) + + + + + | Component | Value | Ref Range | Performed At | + + + + + | ESR | 2Comment: Testing | 0 - 20 mm/Hr | [facility] | | | performed at [facility], [address] | | LABORATORY | | | [address], | | | | | [place] [address] | | | + + + + + + + | Specimen | + + | Blood | + + + + + + + | Performing | Address | City/State/Zipcode | Phone Number | | Organization | | | | + + + + + | [facility] | [address] | [place] [address] | [phone] | | LABORATORY | [address] | | | + + + + + TSH (05/28/2018 9:23 AM) + + + + + | Component | Value | Ref Range | Performed At | + + + + + | TSH | 1.270Comment: Testing | 0.450 - 5.100 uIU/mL | [facility] | | | performed at [facility], [address] | | LABORATORY | | | [address], | | | | | [place] [address] | | | + + + + + + + | Specimen | + + | Blood | + + + + + + + | Performing | Address | City/State/Zipcode | Phone Number | | Organization | | | | + + + + + | [facility] | [address] | [place] [address] | [phone] | | LABORATORY | [address]vd[address] | | | + + + + + Troponin I (05/28/2018 9:23 AM) + + + + + | Component | Value | Ref Range | Performed At | + + + + + | TROPONIN I | 0.034Comment: 0.04 | 0.00 - 0.04 ng/mL | [facility] | | | ng/mL or [...] performed at | | | | | [facility];[address] [place] [address] | | | | | [facility];[place] [address] | | | + + + + + + + | Specimen | + + | Blood | + + + + + + + | Performing | Address | City/State/Zipcode | Phone Number | | Organization | | | | + + + + + | [facility] | [address] | [place] [address] | | + + + + + [...] (L)Comment: GFR <60: | >60 mL/min/1.73m2 | [facility] | | | CHRONIC KIDNEY DISEASE, | [...] | | | | | performed at [facility], [address] | | | | | [facility], | | | | | [place] [address] | | | + + + + + + + | Specimen | + + | Blood | + + + + + + + | Performing | Address | City/State/Zipcode | Phone Number | | Organization | | | | + + + + + | [facility] | [address] | [place] [address] | [phone] | | LABORATORY | [address] | | [...] performed | | | | | at [facility], [address] | | | | | [employer], | | | | | [place] [address] | | | | |Testing performed at [facility], [address] [facility], [place] [address] | | | | | | | | + + + + + + + | Specimen | + + | Blood | + + + + + + + | Performing | Address | City/State/Zipcode | Phone Number | | Organization | | | | + + + + + | [facility] | [address] | [place] [address] | [phone] | | LABORATORY | [address]vd[address] | | [...] PERFORMING LABORATORY: Technical preparation was performed by [employer] | | | [employer], [address] [place] [address] | | | (Financial Services Rep: Matt Claudio D.O.; CLIA#: [id number]). | | | Professional interpretation was performed by [employer], | | | [facility], [address] [place] [id number] | | | (Financial Services Rep: Daniel Larson M.D.; CLIA#: [id number]).6 | | | Diagnostician: Marie BROOKS ([facility]) Top Lift Trimmer | | | Diagnostician: Anahy Da Silva MD Pathologist Electronically Signed | | | 05/30/2018 | | + + + + +---------+ + + | Performing | Address | City/State/Zipcode | Phone Number | | Organization | | | | + +---------+ + + | [facility] | | | | [...] + + + | [facility] | [address] | [place] [address] | [phone] | | LABORATORY | [address] | | [...] performed at | | | | | [facility], [address] [place] [address] | | | | | [place] | | | | | [address] | | | + + + + + + + + + + | Performing | Address | City/State/Zipcode | Phone Number | | Organization | | | | + + + + + | [facility] | [address] | [place] [address] | [phone] | | LABORATORY | [address] | | [...] valve is normal. 18. | | | Nlri-iw-yvhjglrl eccentric mitral regurgitation is present. 19. | [...] DARA LOUISE Date of : 1995 | [facility] | | Performing Physician: Robel [...] valve is normal. 18. | | | Bzzi-cl-irsdbedf eccentric mitral regurgitation is present. 19. | [...] is | | | normal. Mitral Valve: Gzqr-nj-rlwthzhf eccentric mitral | | | regurgitation is [...] TR Vmax: 2.74 m/s | | | Cushion Mat Maker: MW Authenticated by: Robel Yusuf MD Report | | | Date/Time: 05-27-2018 13:59:57 | | + + + + + | Procedure Note | + + | Sonido Steele In - 05/27/2018 2:00 PM PDT Patient Name: Anders LOUISE of | | : 1995Accession: [id number] Physician: Robel Yusuf | | MD INDICATIONS [...] aortic stenosis.17. The mitral valve is normal.18. Guyt-na-esjlqtnu | | eccentric mitral regurgitation is present.19. [...] | | arch are normal.26. No mass juubiqtfyb98. No clot visualizedFINDINGS--------ECG rhythm: | | Sinus [...] The mitral valve is normal. Mitral Valve: Ebbg-nj-wgglhilz eccentric mitral | | regurgitation is present.Tricuspid [...] (A-L): 30.43 | | ml/m2LAAs A2C: 20.97 tz0CWTUT A-L A2C: 65.71 mlLALs A2C: 5.68 cmLAAs A4C: 19.94 | | bt7UYUGC A-L A4C: 60.20 mlLALs A4C: 5.60 cmTAPSE: 1.58 cmHR: 79.62 BPMAV maxPG: | | 6.06 mmHgAV meanP.71 mmHgAV Vmax: 1.23 m/Elizabeth Vmean: 0.92 m/Elizabeth VTI: 20.07 | | cmAVA Vmax: 1.74 cm2AVA (VTI): 1.93 si9GGBF Vmax: 0.00 cm2/m2AVAI (VTI): 0.00 | | [...] The mitral valve is | | normal.18. Adpw-nu-wfjooilp eccentric mitral regurgitation is present.19. Severe | [...] and aortic arch are normal.26. No mass lcngzklzsu51. No clot visualized | |LVIDd: 4.99 cm [...] |TR Vmax: 2.74 m/s | | | |Cushion Mat Maker: MW | |Authenticated by: Robel Yusuf MD [...] The mitral valve is normal. | |18. Sfvf-np-idewthfu eccentric mitral regurgitation is present. | |19. [...] + + + + | [facility] | [address] | [place] [address] | | + + + + + [...] + + + + + | [facility] | [address] | [place] [address] | | + + + + + Brain natriuretic peptide (05/27/2018 4:25 AM) + + + + + | Component | Value | Ref Range | Performed At | + + + + + | BRAIN NATRIURETIC | 1153.92 (H)Comment: | 0 - 100 pg/mL | [facility] | | PEPTIDE | Testing performed at | | | | | [facility];[address] | | | | | [address]vd;[place] [address] | | | + + + + + + + | Specimen | + + | Blood | + + + + + + + | Performing | Address | City/State/Zipcode | Phone Number | | Organization | | | | + + + + + | [facility] | [address] | [place] [address] | | + + + + + Phosphorus (05/27/2018 4:25 AM) + + + + + | Component | Value | Ref Range | Performed At | + + + + + | PHOSPHORUS | 8.0 (H)Comment: Testing | 2.3 - 4.8 mg/dL | [facility] | | | performed at [facility], [address] | | LABORATORY | | | [address], | | | | | [place] [address] | | | + + + + + + + | Specimen | + + | Blood | + + + + + + + | Performing | Address | City/State/Zipcode | Phone Number | | Organization | | | | + + + + + | [facility] | [address] | [place] [address] | [phone] | | LABORATORY | [address] | | | + + + + + Magnesium (05/27/2018 4:25 AM) + + + + + | Component | Value | Ref Range | Performed At | + + + + + | MAGNESIUM | 2.7 (H)Comment: Testing | 1.7 - 2.4 mg/dL | [facility] | | | performed at [facility], [address] | | LABORATORY | | | [address], | | | | | [place] [address] | | | + + + + + + + | Specimen | + + | Blood | + + + + + + + | Performing | Address | City/State/Zipcode | Phone Number | | Organization | | | | + + + + + | [facility] | [address] | [place] [address] | [phone] | | LABORATORY | [address] | | [...] | | | | | performed at [facility], [address] | | | | | [facility], | | | | | [place] [address] | | | + + + + + + + | Specimen | + + | Blood | + + + + + + + | Performing | Address | City/State/Zipcode | Phone Number | | Organization | | | | + + + + + | [facility] | [address] | [place] [address] | [phone] | | LABORATORY | [address] | | | + + + + + CBC w/auto diff (reflex to manual) (05/27/2018 4:25 AM) + + + + + | Component | Value | Ref Range | Performed At | + + + + + | WBC | 6.62 | 3.80 - 11.00 K/uL | [facility] | + + + + + | RBC | 3.48 (L) | 3.70 - 5.10 M/uL | [facility] | + + + + + | HGB | 12.5 | 11.3 - 15.5 g/dL | [facility] | + + + + + | HCT | 37.9 | 34.0 - 46.0 % | [facility] | + + + + + | MCV | 108.8 (H) | 80.0 - 100.0 fl | [facility] | + + + + + | MCH | 35.8 (H) | 27.0 - 34.0 pg | [facility] | + + + + + | MCHC | 32.9 | 32.0 - 35.5 g/dL | [facility] | + + + + [...] + | MORPHOLOGY | 2+ | | [facility] | | | Comment: | | | | | MACRO | | | | | NORMAL PLT MORPH | | | | | | | | + + + + + | Platelet Estimate | DECREASEDComment: | | [facility] | | | Testing performed at | | | | | [facility];[address]idhi [address]ousif | | | | | [place] [address] | | | + + + + + + + | Specimen | + + | Blood | + + + + + + + | Performing | Address | City/State/Zipcode | Phone Number | | Organization | | | | + + + + + | [employer] | [address] | [place] [address] | | + + + + + MRSA by PCR (05/26/2018 6:06 PM) + + + + + | Component | Value | Ref Range | Performed At | + + + + + | SOURCE | NARES(NOSE) | | [facility] | + + + + + | MRSA PCR | NEGATIVEComment: Testing | NEGATIVE | [facility] | | | performed at [facility];[address] | | | | | [address];[place] | | | | | [address] | | | + + + + + + + | Specimen | + + | Nasopharyngeal - | | Nares(Nose) | + + + + + + + | Performing | Address | City/State/Zipcode | Phone Number | | Organization | | | | + + + + + | [facility] | [address] | [place] [address] | | + + + + + [...] INTERP | Testing performed by | | [facility] | | | Molecular | | LABORATORY | | | MethodologyComment: | | | | | Testing performed at | | | | | [place], [address] | | | | | [place], [place] | | | | | [address] | | | + + + + + + + | Specimen | + + | Nasopharynx/Orophary | | nx | + + + + + + + | Performing | Address | City/State/Zipcode | Phone Number | | Organization | | | | + + + + + | [facility] | [address] | [place] [address] | [phone] | | [place] | [place]. | | | + + + + + PROCALCITONIN (05/26/2018 5:27 PM) + + + + + | Component | Value | Ref Range | Performed At | + + + + + | PROCALCITONIN | 0.76 (H)Comment: | <0.5 ng/mL | [facility] | | | INTERPRETIVE | [...] performed | | | | | at [facility];[address] | | | | | [place] [address] | | | + + + + + + + + + + | Performing | Address | City/State/Zipcode | Phone Number | | Organization | | | | + + + + + | [facility] | [address] | [place] [address] | | + + + + + [...] [facility] | [address] | [place] [address] | | + + + + + [...] + + + + | [facility] | [address] | [place] [address] | | + + + + + [...] + + + + + | [facility] | [address] | [place] [address] | [phone] | | LABORATORY | Blvd[address] | | | + + + + + | [facility] | [address] | [place] [address] | | + + + + + Pathologist consult (05/26/2018 2:12 PM) + + + + + | Component | Value | Ref Range | Performed At | + + + + + | Pathologist Consult | Comment: Review of | | [facility] | | | pleural fluid [...] performed | | | | | at [facility];[address] | | | | | [address];[place] [address] | | | + + + + + + + + + + | Performing | Address | City/State/Zipcode | Phone Number | | Organization | | | | + + + + + | [facility] | [address] | [place] [address] | | + + + + + Total Protein, Body Fluid (05/26/2018 2:12 PM) + + + + + | Component | Value | Ref Range | Performed At | + + + + + | FLUID TOTAL PROTEIN | 4.2Comment: This is not | g/dL | [facility] | | | a ventilating engineer validated | | LABORATORY | | | sample type for this | | | | | method. No reference | | | | | ranges have been | | | | | established.Testing | | | | | performed at [facility], [address] | | | | [address], | | | | | [place] [address] | | | + + + + + | FLUID TP SOURCE | PLEURAL FLUIDComment: | | [facility] | | | Testing performed at | | | | | [facility];[address] | | | | | [place] [address] | | | + + + + + + + | Specimen | + + | Body Fluid - Lung, | | Right Lower Lobe | + + + + + + + | Performing | Address | City/State/Zipcode | Phone Number | | Organization | | | | + + + + + | [facility] | [address] | [place] [address] | | + + + + + | [facility] | [address] | [place] [address] | [phone] | | LABORATORY | Blvd. | | | + + + + + Albumin, Body Fluid (05/26/2018 2:12 PM) + + + + + | Component | Value | Ref Range | Performed At | + + + + + | FLUID ALBUMIN | 2.3Comment: This is not | g/dL | [facility] | | | a ventilating engineer validated | | LABORATORY | | | sample type for this | | | | | method. No reference | | | | | ranges have been | | | | | established.Testing | | | | | performed at [facility], [address] | | | | | [facility], | | | | | [place] [address] | | | + + + + + + + | Specimen | + + | Body Fluid - Lung, | | Right Lower Lobe | + + + + + + + | Performing | Address | City/State/Zipcode | Phone Number | | Organization | | | | + + + + + | [facility] | [address] | [place] [address] | [phone] | | LABORATORY | [address] | | | + + + + + pH, Body Fluid (05/26/2018 2:12 PM) + + + + + | Component | Value | Ref Range | Performed At | + + + + + | FLUID PH | 7.45Comment: Testing | | [facility] | | | performed at [facility];[address] | | | | | [address];[place] | | | | | [address] | | | + + + + + + + | Specimen | + + | Body Fluid - Lung, | | Right Lower Lobe | + + + + + + + | Performing | Address | City/State/Zipcode | Phone Number | | Organization | | | | + + + + + | [facility] | [address] | [place] [address] | | + + + + + [...] | [address] | [place] [address] | [phone] | | LABORATORY | Blvd[address] | | | + + + + + Cell count, Body Fluid (05/26/2018 2:12 PM) + + + + + | Component | Value | Ref Range | Performed At | + + + + + | FLUID TYPE | PLEURAL FLUID | | [facility] | + + + + + | COLOR | SAMMIE | | [facility] | + + + + + | APPEARANCE | CLOUDY | | [facility] | + + + + + | RBC'S | 3,000Comment: CORRECTED | /mm3 | [facility] | | | RESULTS CALLED TO | | | | | MARIA LUISA IN ED AT 1705 | | | | | BY LGJCORRECTED ON 05/26 | | | | | AT 1702: PREVIOUSLY | | | | | REPORTED <[id number] | | | + + + + + | TOTAL NUCLEATED | 253Comment: CORRECTED | /mm3 | [facility] | | CELLS | RESULTS [...] | MONOCYTES/MACROPHAGE | 65 | % | [facility] | | S | | | | + + + + + | Mesothelial Cells | 5 | % | [facility] | + + + + + | CELLS COUNTED | 100Comment: Testing | | [facility] | | | performed at [facility];[address] | | | | | [address];[place] | | | | | [address] | | | + + + + + + + | Specimen | + + | Body Fluid - Lung, | | Right Lower Lobe | + + + + + + + | Performing | Address | City/State/Zipcode | Phone Number | | Organization | | | | + + + + + | [facility] | [address] | [place] [address] | | + + + + + PROCALCITONIN (05/26/2018 12:14 PM) + + + + + | Component | Value | Ref Range | Performed At | + + + + + | PROCALCITONIN | 0.56 (H)Comment: | <0.5 ng/mL | [facility] | | | INTERPRETIVE | [...] performed | | | | | at [facility];[address] [place] [address] | | | | | [place] [address] | | | + + + + + + + + + + | Performing | Address | City/State/Zipcode | Phone Number | | Organization | | | | + + + + + | [facility] | [address] | [place] [address] | | + + + + + Brain natriuretic peptide (05/26/2018 12:14 PM) + + + + + | Component | Value | Ref Range | Performed At | + + + + + | BRAIN NATRIURETIC | 1,528.24 (H)Comment: | 0 - 100 pg/mL | [facility] | | PEPTIDE | Testing performed at | | | | | [facility];[address] | | | | | [address];[place] [address] | | | + + + + + + + + + + | Performing | Address | City/State/Zipcode | Phone Number | | Organization | | | | + + + + + | [facility] | [address] | [place] [address] | | + + + + + Cardiac Panel (05/26/2018 12:14 PM) + + + + + | Component | Value | Ref Range | Performed At | + + + + + | WBC | 5.73 | 3.80 - 11.00 K/uL | [facility] | + + + + + | RBC | 3.32 (L) | 3.70 - 5.10 M/uL | [facility] | + + + + + | HGB | 12.1 | 11.3 - 15.5 g/dL | [facility] | + + + + + | HCT | 36.1 | 34.0 - 46.0 % | [facility] | + + + + + | MCV | 108.7 (H) | 80.0 - 100.0 fl | [facility] | + + + + + | MCH | 36.3 (H) | 27.0 - 34.0 pg | [facility] | + + + + + | MCHC | 33.4 | 32.0 - 35.5 g/dL | [facility] | + + + + + | RDW SD | 59.9 (H) | 37 - 53 fl | [facility] | + + + + + | PLT | 151 | 150 - 400 K/uL | [facility] | + + + + + | MPV | 10.1 | fl | [facility] | + + + + + | DIFF TYPE | AUTOMATED | | [facility] | + + + + + [...] | MORPHOLOGY | 2+Comment: MACRO | | [facility] | + + + + + | Platelet Estimate | ADEQUATE | | [facility] | + + + + + | SODIUM | 140 | 135 - 145 mmol/L | [facility] | + + + + + | POTASSIUM | 4.6 | 3.5 - 4.9 mmol/L | [facility] | + + + + [...] 64 | 10 - 65 U/L | [facility] | + + + + + | EGFR | 6 (L)Comment: GFR <60: | >60 mL/min/1.73m2 | [facility] | | | CHRONIC KIDNEY [...] the | | | | | MDRD [facility] traceable | | | | | equation. | | | + + + + + | CPK | 291 (H) | 30 - 240 U/L | [facility] | + + + + + | INR | 1.6Comment: REFERENCE | | [facility] | | | RANGE:0.9 - [...] 29 | 23 - 32 seconds | [facility] | + + + + + | MMB | 7.8 (H) | 0.5 - 3.6 ng/mL | [facility] | + + + + + | CK-MB Index | 2.7Comment: CK INDEX | | [facility] | | | INTERPRETATION: | [...] [facility] [place];[address] | | | | | [address];[place] | | | | | [address] | | | + + + + + + + + + + | Performing | Address | City/State/Zipcode | Phone Number | | Organization | | | | + + + + + | [facility] | [address] | [place] [address] | | + + + + + [...] space: 4th Puncture | | | method: Mwpw-hfi-wuiomb catheter Ultrasound guidance: yes | | | [...] perforation, infection and | | | pain [place] protocol: Imaging studies available: yes | | [...] Performed At | + + + | [id number] Criteria Met 2 in 2 | ED [...] Count (12 mo.) Facility Visits Low Acuity [facility] | | | [facility] 1 0 [facility] 5 0 Total 6 0 | | | Note: Visits indicate total known visits. Medicaid Low Acuity Dx | | | are the number of primary diagnoses on the Medicaid's Low Acuity dx | | | list. Recent Emergency Department Visit Summary Date Facility | | | [facility] [place] Type Diagnoses or Chief Complaint May 26, 2018 [facility] | | | [facility] [place] Emergency Chest pain, unspecified | | | [facility] [place] [facility] | | | Complaint: FLU SYMPTOMS [facility], [facility] [place] | | | Emergency Chief Complaint: SOB/COUGH May 10, [address] [facility] | | | [place]even H. [...] | | disease Feb 14, 2018 [facility] [place] [facility] | | | Functional dyspepsia Other ascites Epigastric pain | | | Allergy status to narcotic agent status Radiographic dye | | | allergy status Nicotine dependence, unspecified, uncomplicated | | | Other long term care administrator (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 Sep 16, 2017 [facility] | | | [facility] [place] Emergency Chronic kidney disease, | | | unspecified Dependence on renal dialysis Pain, | | | unspecified Allergy status to narcotic agent status | | | Nicotine dependence, unspecified, uncomplicated Other long term care administrator | | | (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 Elevated [...] record at this time. | | | ZYOMYX Portal This patient has registered at the [facility] | | | [facility] Emergency Department For more information visit: | | | [email or web address] | | | [email or web address] andnbsp PLEASE NOTE: [...] | | completeness of information provided. 2019 [employer] | | | [employer] - [employer] | | + + + + + | Procedure Note | + + | Will, Lab - 05/26/2018 12:00 PM PDT Formatting of this note may be different | | from the original.[id number] Met 2 in 2Security and | | SafetyNo recent Security Events currently on fileED Care GuidelinesThere are currently | | no ED Care Guidelines for this patient. Please check your facility's medical records | | system.Prescription Drug Report (12 Mo.)PDMP query found no report.E.D. Visit Count (12 | | mo.)Facility Visits Low Acuity [facility] 1 0 [facility] | | Hospital 5 0 Total 6 0 Note: Visits indicate total known visits. Medicaid Low Acuity Dx | | are the number of primary diagnoses on the Medicaid's Low Acuity dx list. Recent | | Emergency Department Visit SummaryDate Facility City State Type Diagnoses or Chief | | [facility] [place] [facility] Chest pain, | | unspecified May 26, 2018 [facility] [place] Emergency Chief Complaint: FLU | | SYMPTOMS May 25, 2018 [facility] [place] [facility] Chief Complaint: | | SOB/COUGH May 10, 2018 [facility] [place] Emergency Epistaxis Other long [...] stage renal disease Feb 14, 2018 [facility] | | [place] [place] Emergency Functional dyspepsia Other ascites Epigastric pain | | Allergy status to narcotic agent status Radiographic dye allergy status Nicotine | | dependence, unspecified, uncomplicated Other fci (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 Waldemar | | 2017 [facility] [place] Emergency Chronic kidney disease, unspecified | | Dependence on renal dialysis Pain, unspecified Allergy status to narcotic agent | | status Nicotine dependence, unspecified, uncomplicated Other fci (current) | | 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 Elevated blood-pressure [...] | PortalThis patient has registered at the [facility] Emergency | | Department For more information visit: | | [email or web address] andnbsp | | PLEASE NOTE: 1. Any [...] to the | | limitations of applicable ZYOMYX Policies. 3. You should consult directly with | | the organization that provided a care guideline or other clinical history with any | | questions about additional information or accuracy or completeness of information | | provided.2019 [employer]. 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 [place] [facility] | | Functional dyspepsia | | Other ascites | | Epigastric pain | | Allergy status to narcotic agent status | | Radiographic dye allergy status | | Nicotine dependence, unspecified, uncomplicated | | Other fci (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 | | | |Sep 16, 2017 [facility] [place] [facility] | | Chronic kidney disease, unspecified | | Dependence on renal dialysis | | Pain, unspecified | | Allergy status to narcotic agent status | | Nicotine dependence, unspecified, uncomplicated | | Other long term care administrator (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 | | Elevated blood-pressure [...] | |This patient has registered at the [facility] Emergency Department | |For more information visit: [email or web address] | |andnbsp PLEASE NOTE: | | 1. [...] of information provided. | | | |2019 [employer]. - www.Gate 53[employer] | + + + +---------+ + + [...] + + + + | [facility] | [address] | [place] [address] | | + + + + + [...] 10 mLs | | | | 0.5% -1:[id number] injection 10 mL | Other | 9 [...] PDT | | | | | Dialysis, [facility] 05/30/18 at 0730, | | | | [...] PDT | | | | | Dialysis, [place] 05/27/18 at 1700, | | | | [...] PDT | | | | | Dialysis, [facility] 05/28/18 at 1230, | | | [...] PDT | | | | | Dialysis, [facility] 06/01/18 at 0800, | | [...]
--- OUTSIDE RECORDS SUMMARY | ~2018-06-11 | XMS | Encounter Summary ---
Demographics + + + | Address | [address] | | | [place] [address] | + + + | Home Phone [...] [facility] | | | and [place] | + + + | Organization | [facility] [...] Providers + +------+ + | Care Insurance Processor Name | Role | Phone | [...] | | [address] | [address] | | | | | [place], [place] | [place], [place] | | | | | [address] | [address] | | | | | [phone] | | | +--------+ + + + [...]
--- OUTSIDE RECORDS SUMMARY | ~2018-06-11 | XMS | Encounter Summary ---
Demographics + + + | Address | [address] | | | [place] [address] | + + + | Home Phone [...] + + + | Author | [employer] | + + + | Organization | [facility] [employer] | + + + | Address [...] | | | | | [place] [address] | | + + + + + | Wilson De Guzman | ECON | Unknown | | + + + + + Care Team Providers + +------+ + | Care Rug Dry Room Attendant Name | Role | Phone | + +------+ + | Tien Nicholson MD | PCP | | + +------+ + Reason for Visit + + + | Reason | Comments | + + + | Shortness of Breath | | + + + | Referral | [facility] | + + + Auth/Cert +--------+--------+ + + + + | Status | Reason | Specialty | Diagnoses / | Referred By | Referred To | | | | | Procedures | Contact | Contact | +--------+--------+ + + + + | | | Internal | Diagnoses | | [facility] 4th | | | | Medicine | Acute | | [facility] | | | | | respiratory | | [address] | | | | | distress | | [address] | | | | | Other | | [place], [place] | | | | | ascites | | [address] Phone: | | | | | Pleural | | [phone] | | | | | effusion on | | Fax: | | | | | right Chest | | [phone] | | | | | pain, | | | | | | | unspecified | | | | | | | type | | | +--------+--------+ + + + + Encounter Details +--------+ + + + + | Date | Type | Department | Care Team | Description | +--------+ + + + + | 05/26/ | Hospital | [facility] | Aneudy Hunter, | Pleural effusion on | | 2019 - | Encounter | [facility] 4th | [address] | right (Primary Dx); | | | | [facility] | [place] [address] | Chest pain, | | 06/01/ | | [address] | [phone] [place], | unspecified type; | | 2019 | | [place] [address] | MD May[place] [address] | Other ascites; Acute | | | | [phone] | [address] | respiratory | | | | | [place] [address] | distress; End-stage | | | | | [phone] | renal disease on | | | | | | hemodialysis ([facility]); | | | | | Anthony Belcher MD | Hyperkalemia; | | | | | [address] | Hyperphosphatemia; | | | | | [place] [address] | At high risk for | | | | | [phone] | electrolyte | | | | | | imbalance; Acute | | | | | Darell Kowalski MD | systolic CHF | | | | | [address] | (congestive heart | | | | | [place] [address] | failure) ([facility]); | | | | | [phone] | Hypoalbuminemia; | | | | | | Anemia in ESRD | | | | | | (end-stage renal | | | | | | disease) ([facility]); ESRD | | | | [...] note may be different from pierre coleman. [facility] Service: Hospitalist Physician Discharge [...] 17. The mitral valve is normal. 18. Yxwg-wh-ykwvb ate eccentric mitral regurgitation is present. 19. [...] anemia of chronic disease who went to [facility] [place] [facility] with increasing shortness of breath found to have right pleural effusion who was transfer red to [facility] underwent right-sided diagnostic and therapeutic thoracocentesis with removal of 1 L of fluid likely transudative, Gram stain and cultures negative so far and ia so had high volume paracentesis 4 L [...] hyperkalemia with that. I discussed with the business support as Follow Up Labs/Imaging and Monitoring: Cardiology [...] Component Value Units Date/Time Culture, Body Fluid [[id number]] Collected: 05/26/18 1412 Specimen: Body Fluid from Pleural Fluid Updated: 05/30/18 0733 Specimen Description PLEURAL FLUID GRAM STAIN WBC'S SEEN GRAM STAIN NO ORGANISMS SEEN GRAM STAIN STAIN PERFORMED ON CYTOSPIN CULTURE NO GROWTH 4 DAYS Culture, Body Fluid [[id number]] Collected: 05/26/18 1513 Specimen: Other from Ascites Fluid Updated: 05/30/18 0732 Specimen Description ASCITES FLUID GRAM STAIN STAIN PERFORMED ON CYTOSPIN GRAM STAIN WBC'S SEEN GRAM STAIN NO EPITHELIAL CELLS SEEN GRAM STAIN NO ORGANISMS SEEN CULTURE NO GROWTH 4 DAYS Gram stain [[id number]] Collected: 05/29/18 1256 Specimen: Sputum from Thoracic Fluid Updated: 05/29/18 2339 Specimen Description THORACIC FLUID CULTURE 1+ WBC'S SEEN NO ORGANISMS SEEN Lactate dehydrogenase, body fluid [[id number]] Collected: 05/29/18 1256 Specimen: Body Fluid from Pleural, Right Updated: 05/29/18 1619 FLUID LDH 151 U/L Cholesterol, body fluid [[id number]] Collected: 05/29/18 1256 Specimen: Body Fluid from [...] Tien Nicholson MD [address] [place] [address] In 1 week Carolina Mahmood DO [address] [place] [id number] In 1 week Daniela Ibarra MD [address] [place] [id number] In 1 week Discharge took more than 35 minutes, to include final examination, discussion of admission, and preparation of prescriptions, instructions for ongoing care, follow up and dictation of summary. Signed: DARELL KOWALSKI MD 06/01/2018 9:59 AM Dictation software, [employer], used which may contain error for similar [...] of this encounter Progress Notes Tino Paiz, TIPPING MACHINE OPERATOR AUTOMATIC - 06/01/2018 3:06 PM PDTFormatting of this note may be different maxim m the original. [facility] Department of Respiratory Nursing Home [...] note may be different from the original. [facility] Service: NEPHROLOGY Dialysis/ Progress Note Dara Louise 23 y.o. [id number] [id number] female [place] [facility] Day: LOS: 6 days Patient with [...] FISTULA; Surgeon: Rik Simon MD; Location: [facility] MAIN OR; Service: Vascula r; Laterality: Left; cephalic AV FISTULA REPAIR Left 03/07/2014 Procedure: AV FISTULA - GRAFT REPAIR/REVISION; Surgeon: Rik Simon MD; Location: [facility] IN OR; Service: Vascular; Laterality: Left; DECLOT GRAFT Left 03/07/2014 Procedure: GRAFT - DECLOT; Surgeon: Rik Simon MD; Location: [facility] OR; Service: Vas cular; Laterality: Left; DIALYSIS FISTULA CREATION N/A 04/08/2014 Procedure: DIALYSIS CATHETER - INSERTION; Surgeon: Rik Simon MD; Location: [facility] OR ; Service: Vascular; Laterality: N/A; tunneled catheter LAPAROSCOPIC PERITONEAL DIALYSIS CATHETER INSERTION x2 LAPAROSCOPIC PERITONEAL DIALYSIS CATHETER INSERTION Right 07/2013 current dialysis access MWF dialysis RENAL BIOPSY SUPERFICIALIZATION OF AV FISTULA Left 06/24/2014 Procedure: AV FISTULA - SUPERFICIALIZATION; Surgeon: Rik Simon MD; Location: [facility]; Service: Vascular; Laterality: Left; [...] radiologist report and is used for image [employer] only Us Abdomen Limited Result Date: 05/28/2018 [...] 17. The mitral valve is normal. 18. Hmpq-ui-ymvzdpzg eccentric mitral regurgitation i s present. 19. [...] mitral valve is normal. Mitral Kait ve: Jijr-ej-uesuadvi eccentric mitral regurgitation is present. Tricuspid Valve: [...] maxP.08 mmHg TR Vmax: 2.7 4 m/s Locomotive Inspector: MOO Authenticated by: Robel Yusuf MD Report [...] 17. The mitral valve is normal. 18. Pyly-zd-qsvha ate eccentric mitral regurgitation is present. 19. [...] pleural spac e is punctured with an 8-[place] thoracentesis catheter. Fluid is aspirated without complicat [...] earlier and charting completed later Dictation software, [employer] Money, used which may contain error for similar [...] put on "an antibiotic" for pneumonia at [facility] ED. Was throwing up & [...] the prelim submitted orders, MWF No acute PATTERN SETTER indication ESTEFANY as indicated with HD Protein [...] may be different from pierre quarles original. [facility] Service: Hospitalist Progress Note Pt: Dara Louise AGE/SEX: 23 y.o. female ROOM: 4441/4441-1 : 1995 PCP: TIEN NICHOLSON ADMIT DATE: 05/26/2018 TODAY'S DATE: 05/31/2018 Hospital Day/Hospital Course: LOS: [address] Belcher 23-year-old female with past medical history of end-stage renal disease on hemodialysis Mon day Monday, hypertension, anemia of chronic disease who went to [facility] [place] [facility] with increasing shortness of breath found [...] Component Value Units Date/Time Culture, Body Fluid [[id number]] Collected: 05/26/18 1412 Specimen: Body Fluid from Pleural Fluid Updated: 05/30/18 0733 Specimen Description PLEURAL FLUID GRAM STAIN WBC'S SEEN GRAM STAIN NO ORGANISMS SEEN GRAM STAIN STAIN PERFORMED ON CYTOSPIN CULTURE NO GROWTH 4 DAYS Culture, Body Fluid [[id number]] Collected: 05/26/18 1513 Specimen: Other from Ascites Fluid Updated: 05/30/18 0732 Specimen Description ASCITES FLUID GRAM STAIN STAIN PERFORMED ON CYTOSPIN GRAM STAIN WBC'S SEEN GRAM STAIN NO EPITHELIAL CELLS SEEN GRAM STAIN NO ORGANISMS SEEN CULTURE NO GROWTH 4 DAYS Gram stain [[id number]] Collected: 05/29/18 1256 Specimen: Sputum from Thoracic Fluid Updated: 05/29/18 2339 Specimen Description THORACIC FLUID CULTURE 1+ WBC'S SEEN NO ORGANISMS SEEN Lactate dehydrogenase, body fluid [[id number]] Collected: 05/29/18 1256 Specimen: Body Fluid from Pleural, Right Updated: 05/29/18 1619 FLUID LDH 151 U/L Cholesterol, body fluid [[id number]] Collected: 05/29/18 1256 Specimen: Body Fluid from Pleural, Right Updated: 05/29/18 1619 FLUID CHOLESTEROL 56 mg/dL Sputum culture [[id number]] Collected: 05/27/182014 Specimen: Sputum from Sputum Updated: [...] likely representing atelectasis. Signed by: MD Lakhwinder, Floiran Sign Date/Time: 05/26/2018 4:[address] Chest [...] 17. The mitral valve is normal. 18. Ycpw-pz-mypgk ate eccentric mitral regurgitation is present. 19. [...] anemia of chronic disease who went to [facility] [place] [facility] with increasing shortness of breath due to acute congestive heart failure Acute systolic congestive heart failure with Pleural Effusion: Admitted with acute systolic congestive heart failure with bilateral pleural effusion stat us post thoracentesis 2. Her breathing has improved. She is talking to me appropriately. N ot in any kind of distress. nutritional services host to initiate the discharge plan. Possible dischar [...] MD, FACP 05/31/2018 9:42 AM Dictation software, [employer], used which may contain error for similar sounding words even af ter review. Personal communication requested for any clarification. Portions of this chart may have been copied from previous notes for continuity of care purp Darell Segundo MD - 05/30/2018 9:09 AM PDTFormatting of this note may be different from pierre coleman. [facility] Service: Hospitalist Progress Note Pt: Dara Louise AGE/SEX: 23 y.o. female ROOM: [facility]/4441-1 : 1995 PCP: TIEN NICHOLSON ADMIT DATE: 05/26/2018 TODAY'S DATE: 05/30/2018 Hospital Day/Hospital Course: LOS: [address] Belcher 23-year-old female with past medical history of end-stage renal disease on hemodialysis Mon, hypertension, anemia of chronic disease who went to [facility] [place] [facility] with increasing shortness of breath found [...] Component Value Units Date/Time Culture, Body Fluid [[id number]] Collected: 05/26/18 1412 Specimen: Body Fluid from Pleural Fluid Updated: 05/30/18 0733 Specimen Description PLEURAL FLUID GRAM STAIN WBC'S SEEN GRAM STAIN NO ORGANISMS SEEN GRAM STAIN STAIN PERFORMED ON CYTOSPIN CULTURE NO GROWTH 4 DAYS Culture, Body Fluid [[id number]] Collected: 05/26/18 1513 Specimen: Other from Ascites Fluid Updated: 05/30/18 0732 Specimen Description ASCITES FLUID GRAM STAIN STAIN PERFORMED ON CYTOSPIN GRAM STAIN WBC'S SEEN GRAM STAIN NO EPITHELIAL CELLS SEEN GRAM STAIN NO ORGANISMS SEEN CULTURE NO GROWTH 4 DAYS Gram stain [[id number]] Collected: 05/29/18 1256 Specimen: Sputum from Thoracic Fluid Updated: 05/29/18 2339 Specimen Description THORACIC FLUID CULTURE 1+ WBC'S SEEN NO ORGANISMS SEEN Lactate dehydrogenase, body fluid [[id number]] Collected: 05/29/18 1256 Specimen: Body Fluid from Pleural, Right Updated: 05/29/18 1619 FLUID LDH 151 U/L Cholesterol, body fluid [[id number]] Collected: 05/29/18 1256 Specimen: Body Fluid from Pleural, Right Updated: 05/29/18 1619 FLUID CHOLESTEROL 56 mg/dL Sputum culture [[id number]] Collected: 05/27/182014 Specimen: Sputum from Sputum Updated: [...] 17. The mitral valve is normal. 18. Pntm-wy-aheld ate eccentric mitral regurgitation is present. 19. [...] anemia of chronic disease who went to [facility] with increasing shortness of breath due [...] MD, FACP 05/30/2018 9:10 AM Dictation software, [employer], used which may contain error for similar sounding words even af ter review. Personal communication requested for any clarification. Portions of this chart may have been copied from previous notes for continuity of care purp Carolina Camarillo, - 05/29/2018 7:56 PM PDTFormatting of this note may be different from e original. [facility] Service: Cardiology Progress Note [...] Hospitalist Progress Note Dara Louise 23 y.o. [id number] 4441/4441-1 female [place] [facility] Day: LOS: 3 days Patient Summary: 23-year-old female with past medical history of end-stage renal dis ease on hemodialysis Monday, hypertension, anemia of chronic disease who we nt to [facility] with increasing shortness [...] Value Units Date/Time Lactate dehydrogenase, body fluid [[id number]] Collected: 05/29/18 125 Specimen: Body Fluid from Pleural, Right Updated: 05/29/181314 Cholesterol, body fluid [[id number]] Collected: 05/29/18 125 Specimen: Body Fluid from Pleural, Right Updated: 05/29/181314 Gram stain [[id number]] Collected: 05/29/18 125 Specimen: Sputum from OTHR-w source desc (F6) Updated: 05/29/18 1309 Sputum culture [[id number]] Collected: 05/27/182014 Specimen: Sputum from Sputum Updated: 05/29/18 0947 Specimen Description SPUTUM GRAM STAIN LESS THAN 10 WBCS/LPF GRAM STAIN LESS THAN 10 SEC/LPF GRAM STAIN NO ORGANISMS SEEN CULTURE 1+ NORMAL UPPER RESPIRATORY ALESSANDRO HIV 1/2 Ab reflex [[id number]] Collected: 05/28/18 1236 Specimen: Blood Updated: 05/29/1842 HIV1/HIV2 NON REACTIVE Protime-INR [[id number]] Collected: 05/29/18851 Specimen: Blood Updated: 05/29/18939 INR 1.5 APTT [[id number]] Collected: 05/29/18851 Specimen: Blood Updated: 05/29/18939 APTT 29 seconds Culture, Body Fluid [[id number]] Collected: 05/26/18 1513 Specimen: Other from Ascites Fluid Updated: 05/29/18919 Specimen Description ASCITES FLUID GRAM STAIN STAIN PERFORMED ON CYTOSPIN GRAM STAIN WBC'S SEEN GRAM STAIN NO EPITHELIAL CELLS SEEN GRAM STAIN NO ORGANISMS SEEN CULTURE NO GROWTH 3 DAYS Culture, Body Fluid [[id number]] Collected: 05/26/18 1412 Specimen: Body Fluid from Pleural Fluid Updated: 05/29/1818 Specimen Description PLEURAL FLUID CULTURE NO GROWTH 3 DAYS Comprehensive metabolic panel [[id number]] (Abnormal) Collected: 05/29/18456 Specimen: Blood Updated: 05/29/1816 [...] mL/min/1.73m2 CBC W/Auto Diff (Reflex to Manual) [[id number]] (Abnormal) Collected: 05/29/18456 Specimen: Blood Updated: 05/29/18 [...] 0.05 K/uL MORPHOLOGY 2+ hCG, serum, qualitative [[id number]] Collected: 05/28/18922 Specimen: Blood Updated: 05/28/18 1950 TEST,SERUM NEGATIVE C-reactive protein [[id number]] (Abnormal) Collected: 05/28/18922 Specimen: Blood Updated: 05/28/18 1941 CRP 5.1 (H) mg/dL Sedimentation rate, automated [[id number]] Collected: 05/28/18922 Specimen: Blood Updated: 05/28/18 1734 ESR 2 mm/Hr Hepatitis panel,acute [[id number]] Collected: 05/28/18 1236 Specimen: Blood Updated: 05/28/18 1650 HAV AB,IGM NON REACTIVE HEP B SURFACE AG NON REACTIVE ANTI HEP B CORE,IGM NON REACTIVE HEPATITIS C NON REACTIVE HEPATITIS INTERP No serologic evidence of HAV, HBV, or HCV infection. Troponin I [[id number]] Collected: 05/28/18922 Specimen: Blood Updated: 05/28/18 143 TROPONIN I 0.034 ng/mL Troponin I [[id number]] Collected: 05/28/18 1359 Specimen: Blood Updated: 05/28/18 1437 TROPONIN I 0.037 ng/mL Renal function panel [[id number]] (Abnormal) Collected: 05/28/18 1209 Specimen: Blood from Blood Updated: 05/28/18 1302 SODIUM 141 mmol/L POTASSIUM 4.3 mmol/L CHLORIDE 101 mmol/L CO2 29 mmol/L ANION GAP AGAP 15 mmol/L GLUCOSE 78 mg/dL BUN 43 (H) mg/dL CREATININE 7.97 (H) mg/dL CALCIUM 9.1 mg/dL Albumin 3.6 g/dL PHOSPHORUS 6.3 (H) mg/dL EGFR 6 (L) mL/min/1.73m2 CBC W/Auto Diff (Reflex to Manual) [[id number]] (Abnormal) Collected: 05/28/18922 Specimen: Blood Updated: 05/28/18 [...] 0.05 K/uL MORPHOLOGY 1+ Comprehensive metabolic panel [[id number]] (Abnormal) Collected: 05/28/18922 Specimen: Blood Updated: 05/28/181209 [...] (H) U/L EGFR 6 (L) mL/min/1.73m2 TSH [[id number]] Collected: 05/28/18922 Specimen: Blood Updated: 05/28/18 1210 TSH 1.270 uIU/mL Pathologist consult [[id number]] Collected: 05/26/18 1412 Updated: 05/28/18 1113 Pathologist Consult -- Hepatitis panel, chronic [[id number]] (Abnormal) Collected: 05/27/181757 Updated: 05/27/182030 Hep A Total Ab REACTIVE (A) HEP B SURFACE AG NON REACTIVE HEP B CORE AB,TOTAL NON REACTIVE HEP B SURFACE ANTIBODY 3.27 (H) IV HEPATITIS C NON REACTIVE HEPATITIS INTERP Current or past HAV infection. Past HBV infection or vaccination. No ser ologic evidence of HCV infection. CBC w/auto diff (reflex to manual) [[id number]] (Abnormal) Collected: 05/27/18424 Specimen: Blood Updated: 05/27/18710 [...] K/uL MORPHOLOGY 2+ Platelet Estimate DECREASED Phosphorus [[id number]] (Abnormal) Collected: 05/27/18424 Specimen: Blood Updated: 05/27/18628 PHOSPHORUS 8.0 (H) mg/dL Basic Metabolic Panel [[id number]] (Abnormal) Collected: 05/27/18424 Specimen: Blood Updated: 05/27/18628 SODIUM 135 mmol/L POTASSIUM 5.9 (H) mmol/L CHLORIDE 96 (L) mmol/L CO2 25 mmol/L ANION GAP AGAP 20 mmol/L GLUCOSE 74 mg/dL BUN 51 (H) mg/dL CREATININE 9.2 (H) mg/dL BUN/CREAT 6 CALCIUM 9.4 mg/dL EGFR 5 (L) mL/min/1.73m2 Magnesium [[id number]] (Abnormal) Collected: 05/27/18424 Specimen: Blood Updated: 05/27/18628 MAGNESIUM 2.7 (H) mg/dL Brain natriuretic peptide [[id number]] (Abnormal) Collected: 05/27/18424 Specimen: Blood Updated: 05/27/18 0546 BRAIN NATRIURETIC PEPTIDE 1,153.92 (H) pg/mL Respiratory Filmarray [[id number]] (Abnormal) Collected: 05/26/181805 Specimen: Nasopharynx/Oropharynx Updated: 05/26/182141 [...] performed by Molecular Methodology MRSA by PCR [[id number]] Collected: 05/26/181805 Specimen: Nasopharyngeal from Nares(Nose) Updated: 05/26/182025 SOURCE NARES(NOSE) MRSA PCR NEGATIVE Procalcitonin [[id number]] (Abnormal) Collected: 05/26/181726 Updated: 05/26/18 1839 PROCALCITONIN 0.76 (H) ng/mL Albumin, Body Fluid [[id number]] Collected: 05/26/18 141 Specimen: Body Fluid from Lung, Right Lower Lobe Updated: 05/26/18 172 FLUID ALBUMIN 2.3 g/dL Total Protein, Body Fluid [[id number]] Collected: 05/26/18 141 Specimen: Body Fluid from Lung, Right Lower Lobe Updated: 05/26/18 172 FLUID TOTAL PROTEIN 4.2 g/dL FLUID TP SOURCE PLEURAL FLUID Cell count, Body Fluid [[id number]] Collected: 05/26/18 141 Specimen: Body Fluid from Lung, Right Lower Lobe Updated: 05/26/18 170 FLUID TYPE PLEURAL FLUID COLOR SAMMIE APPEARANCE CLOUDY RBC'S 3,000 /mm3 TOTAL NUCLEATED CELLS 253 /mm3 NEUTROPHILS 22 % LYMPHOCYTES 8 % MONOCYTES/MACROPHAGES 65 % Mesothelial Cells 5 % CELLS COUNTED 100 pH, Body Fluid [[id number]] Collected: 05/26/18 141 Specimen: Body Fluid from [...] radiologist report and is used for image [employer] only Us Abdomen Limited Result Date: 05/28/2018 [...] 17. The mitral valve is normal. 18. Fxyd-hy-dihrimtg eccentric mitral regurgitation i s present. 19. [...] mitral valve is normal. Mitral Kait ve: Madn-ee-uiqqmjvb eccentric mitral regurgitation is present. Tricuspid Valve: [...] maxP.08 mmHg TR Vmax: 2.7 4 m/s Locomotive Inspector: MOO Authenticated by: Robel Yusuf MD Report [...] 17. The mitral valve is normal. 18. Chhv-tl-keklv ate eccentric mitral regurgitation is present. 19. [...] put on "an antibiotic" for pneumonia at [facility] ED. Was throwing up & [...] the prelim submitted orders, MWF No acute PATTERN SETTER indication ESTEFANY as indicated with HD Protein [...] Hospitalist Progress Note Dara Louise 23 y.o. [id number] 4441/[id number] female [place] Hospital Day: LOS: 2 days Patient Summary: 23-year-old female with past medical history of end-stage renal dis ease on hemodialysis Monday, hypertension, anemia of chronic disease who we nt to [facility] with increasing shortness [...] Component Value Units Date/Time Culture, Body Fluid [[id number]] Collected: 05/26/18 1517 Specimen: Other from Ascites Fluid Updated: 05/28/18 1225 Specimen Description ASCITES FLUID GRAM STAIN STAIN PERFORMED ON CYTOSPIN GRAM STAIN WBC'S SEEN GRAM STAIN NO EPITHELIAL CELLS SEEN GRAM STAIN NO ORGANISMS SEEN CULTURE NO GROWTH 2 DAYS Culture, Body Fluid [[id number]] Collected: 05/26/18 141 Specimen: Body Fluid from Pleural Fluid Updated: 05/28/18 1223 Specimen Description PLEURAL FLUID CULTURE NO GROWTH 2 DAYS Comprehensive metabolic panel [[id number]] (Abnormal) Collected: 05/28/18922 Specimen: Blood Updated: 05/28/18 [...] (H) U/L EGFR 6 (L) mL/min/1.73m2 TSH [[id number]] Collected: 05/28/18922 Specimen: Blood Updated: 05/28/18 1210 TSH 1.270 uIU/mL Pathologist consult [[id number]] Collected: 05/26/18 1412 Updated: 05/28/18 1113 Pathologist Consult -- Troponin I [[id number]] Collected: 05/28/18922 Specimen: Blood Updated: 05/28/18 1055 CBC W/Auto Diff (Reflex to Manual) [[id number]] Collected: 05/28/18922 Specimen: Blood Updated: 05/28/18 09 Sputum culture [[id number]] Collected: 05/27/182014 Specimen: Sputum from Sputum Updated: 05/28/18902 Specimen Description SPUTUM GRAM STAIN LESS THAN 10 WBCS/LPF GRAM STAIN LESS THAN 10 SEC/LPF GRAM STAIN NO ORGANISMS SEEN CULTURE CULTURE IN PROGRESS Hepatitis panel, chronic [[id number]] (Abnormal) Collected: 05/27/181757 Updated: 05/27/182030 Hep A Total Ab REACTIVE (A) HEP B SURFACE AG NON REACTIVE HEP B CORE AB,TOTAL NON REACTIVE HEP B SURFACE ANTIBODY 3.27 (H) IV HEPATITIS C NON REACTIVE HEPATITIS INTERP Current or past HAV infection. Past HBV infection or vaccination. No ser ologic evidence of HCV infection. CBC w/auto diff (reflex to manual) [[id number]] (Abnormal) Collected: 05/27/18424 Specimen: Blood Updated: 05/27/18710 [...] K/uL MORPHOLOGY 2+ Platelet Estimate DECREASED Phosphorus [[id number]] (Abnormal) Collected: 05/27/18424 Specimen: Blood Updated: 05/27/18628 PHOSPHORUS 8.0 (H) mg/dL Basic Metabolic Panel [[id number]] (Abnormal) Collected: 05/27/18424 Specimen: Blood Updated: 05/27/18628 SODIUM 135 mmol/L POTASSIUM 5.9 (H) mmol/L CHLORIDE 96 (L) mmol/L CO2 25 mmol/L ANION GAP AGAP 20 mmol/L GLUCOSE 74 mg/dL BUN 51 (H) mg/dL CREATININE 9.2 (H) mg/dL BUN/CREAT 6 CALCIUM 9.4 mg/dL EGFR 5 (L) mL/min/1.73m2 Magnesium [[id number]] (Abnormal) Collected: 05/27/18424 Specimen: Blood Updated: 05/27/18628 MAGNESIUM 2.7 (H) mg/dL Brain natriuretic peptide [[id number]] (Abnormal) Collected: 05/27/18424 Specimen: Blood Updated: 05/27/18545 BRAIN NATRIURETIC PEPTIDE 1,153.92 (H) pg/mL Respiratory Filmarray [[id number]] (Abnormal) Collected: 05/26/181805 Specimen: Nasopharynx/Oropharynx Updated: 05/26/182 [...] performed by Molecular Methodology MRSA by PCR [[id number]] Collected: 05/26/181805 Specimen: Nasopharyngeal from Nares(Nose) Updated: 05/26/182025 SOURCE NARES(NOSE) MRSA PCR NEGATIVE Procalcitonin [[id number]] (Abnormal) Collected: 05/26/18 1727 Updated: 05/26/18 1839 PROCALCITONIN 0.76 (H) ng/mL Albumin, Body Fluid [[id number]] Collected: 05/26/18 141 Specimen: Body Fluid from Lung, Right Lower Lobe Updated: 05/26/18 1729 FLUID ALBUMIN 2.3 g/dL Total Protein, Body Fluid [[id number]] Collected: 05/26/18 141 Specimen: Body Fluid from Lung, Right Lower Lobe Updated: 05/26/18 1729 FLUID TOTAL PROTEIN 4.2 g/dL FLUID TP SOURCE PLEURAL FLUID Cell count, Body Fluid [[id number]] Collected: 05/26/18 141 Specimen: Body Fluid from Lung, Right Lower Lobe Updated: 05/26/18 1708 FLUID TYPE PLEURAL FLUID COLOR SAMMIE APPEARANCE CLOUDY RBC'S 3,000 /mm3 TOTAL NUCLEATED CELLS 253 /mm3 NEUTROPHILS 22 % LYMPHOCYTES 8 % MONOCYTES/MACROPHAGES 65 % Mesothelial Cells 5 % CELLS COUNTED 100 pH, Body Fluid [[id number]] Collected: 05/26/18 1412 Specimen: Body Fluid from Lung, Right Lower Lobe Updated: 05/26/18 1508 FLUID PH 7.45 Procalcitonin [[id number]] (Abnormal) Collected: 05/26/18 1214 Updated: 05/26/18 1330 PROCALCITONIN 0.56 (H) ng/mL Cardiac Panel [[id number]] (Abnormal) Collected: 05/26/18 1214 Updated: 05/26/18 1312 [...] ng/mL CK-MB Index 2.7 Brain natriuretic peptide [[id number]] (Abnormal) Collected: 05/26/18 1214 Updated: 05/26/18 1254 [...] radiologist report and is used for image [employer] Echo Cardiac Adult Complete Result Date: 05/27/2018 [...] 17. The mitral valve is normal. 18. Hutl-ky-wmkxxcwy eccentric mitral regurgitation i s present. 19. [...] mitral valve is normal. Mitral Kait ve: Vcax-iw-xdgnpshy eccentric mitral regurgitation is present. Tricuspid Valve: [...] maxP.08 mmHg TR Vmax: 2.7 4 m/s Locomotive Inspector: MOO Authenticated by: Robel Yusuf MD Report [...] 17. The mitral valve is normal. 18. Dddb-ol-pisad ate eccentric mitral regurgitation is present. 19. [...] Hospitalist Progress Note Dara Louise 23 y.o. [id number] female [place] [facility] Day: LOS: 1 day Patient Summary: 23-year-old female with past medical history of end-stage renal dis ease on hemodialysis Monday, hypertension, anemia of chronic disease who we nt to [facility] with increasing shortness [...] Date/Time CBC w/auto diff (reflex to manual) [[id number]] (Abnormal) Collected: 05/27/18424 Specimen: Blood Updated: 05/27/18 [...] K/uL MORPHOLOGY 2+ Platelet Estimate DECREASED Phosphorus [[id number]] (Abnormal) Collected: 05/27/18424 Specimen: Blood Updated: 05/27/18 0629 PHOSPHORUS 8.0 (H) mg/dL Basic Metabolic Panel [[id number]] (Abnormal) Collected: 05/27/18424 Specimen: Blood Updated: 05/27/18628 SODIUM 135 mmol/L POTASSIUM 5.9 (H) mmol/L CHLORIDE 96 (L) mmol/L CO2 25 mmol/L ANION GAP AGAP 20 mmol/L GLUCOSE 74 mg/dL BUN 51 (H) mg/dL CREATININE 9.2 (H) mg/dL BUN/CREAT 6 CALCIUM 9.4 mg/dL EGFR 5 (L) mL/min/1.73m2 Magnesium [[id number]] (Abnormal) Collected: 05/27/18424 Specimen: Blood Updated: 05/27/18 0629 MAGNESIUM 2.7 (H) mg/dL Brain natriuretic peptide [[id number]] (Abnormal) Collected: 05/27/18424 Specimen: Blood Updated: 05/27/18 0546 BRAIN NATRIURETIC PEPTIDE 1,153.92 (H) pg/mL Respiratory Filmarray [[id number]] (Abnormal) Collected: 05/26/181805 Specimen: Nasopharynx/Oropharynx Updated: 05/26/182141 [...] performed by Molecular Methodology MRSA by PCR [[id number]] Collected: 05/26/18 180 Specimen: Nasopharyngeal from Nares(Nose) Updated: 05/26/182025 SOURCE NARES(NOSE) MRSA PCR NEGATIVE Procalcitonin [[id number]] (Abnormal) Collected: 05/26/18 1727 Updated: 05/26/18 183 PROCALCITONIN 0.76 (H) ng/mL Culture, Body Fluid [[id number]] Collected: 05/26/18 141 Specimen: Body Fluid from Pleural Fluid Updated: 05/26/18 181 Pathologist consult [[id number]] Collected: 05/26/18 141 Updated: 05/26/18 1742 Albumin, Body Fluid [[id number]] Collected: 05/26/18 141 Specimen: Body Fluid from Lung, Right Lower Lobe Updated: 05/26/18 1729 FLUID ALBUMIN 2.3 g/dL Total Protein, Body Fluid [[id number]] Collected: 05/26/18 141 Specimen: Body Fluid from Lung, Right Lower Lobe Updated: 05/26/18 1729 FLUID TOTAL PROTEIN 4.2 g/dL FLUID TP SOURCE PLEURAL FLUID Cell count, Body Fluid [[id number]] Collected: 05/26/18 141 Specimen: Body Fluid from Lung, Right Lower Lobe Updated: 05/26/18 1708 FLUID TYPE PLEURAL FLUID COLOR SAMMIE APPEARANCE CLOUDY RBC'S 3,000 /mm3 TOTAL NUCLEATED CELLS 253 /mm3 NEUTROPHILS 22 % LYMPHOCYTES 8 % MONOCYTES/MACROPHAGES 65 % Mesothelial Cells 5 % CELLS COUNTED 100 Culture, Body Fluid [[id number]] Collected: 05/26/18 1513 Specimen: Other from Ascites Fluid Updated: 05/26/18 1631 Specimen Description ASCITES FLUID GRAM STAIN STAIN PERFORMED ON CYTOSPIN GRAM STAIN WBC'S SEEN GRAM STAIN NO EPITHELIAL CELLS SEEN GRAM STAIN NO ORGANISMS SEEN CULTURE PENDING pH, Body Fluid [[id number]] Collected: 05/26/18 1412 Specimen: Body Fluid from Lung, Right Lower Lobe Updated: 05/26/18 1508 FLUID PH 7.45 Procalcitonin [[id number]] (Abnormal) Collected: 05/26/181213 Updated: 05/26/18 1330 PROCALCITONIN 0.56 (H) ng/mL Cardiac Panel [[id number]] (Abnormal) Collected: 05/26/181213 Updated: 05/26/18 1312 WBC [...] ng/mL CK-MB Index 2.7 Brain natriuretic peptide [[id number]] (Abnormal) Collected: 05/26/181213 Updated: 05/26/18 1254 BRAIN [...] radiologist report and is used for image [employer] only PROBLEM LIST Active Problems: ESRD on [...] heparin ANTHONY BELCHER MD 05/27/2018 Jae Gutierres, [facility] - 05/26/2018 6:05 PM PDTRenal Dosing Monitoring: [...] | + +--------+ + + + | [employer] CARD PANEL W/O | STAT | 05/26/2018 [...] (H) | 35 - 115 U/L | [facility] | | | | | LABORATORY | + + + + + | AST | 97 (H) | 10 - 45 U/L | [facility] | | | | | LABORATORY | [...] the | | | | | MDRD IDNY traceable | | | | | equation.Testing | | | | | performed at [facility], [address] | | | | | [facility], | | | | | [place] [address] | | | + + + + + + + | Specimen | + + | Blood | + + + + + + + | Performing | Address | City/State/Zipcode | Phone Number | | Organization | | | | + + + + + | [facility] | [address] | [place] [address] | [phone] | | LABORATORY | [address]vd. | | [...] performed | | | | | at [facility], [address] | | | | | [facility], | | | | | [place] [address] | | | | |Testing performed at [facility], [address] [place] [address] | | | | | | | | + + + + + + + | Specimen | + + | Blood | + + + + + + + | Performing | Address | City/State/Zipcode | Phone Number | | Organization | | | | + + + + + | [facility] | [address] | [place] [address] | [phone] | | LABORATORY | Blvd. | | [...] (L) | 3.6 - 5.0 g/dL | [facility] | | | | | [...] | | | | performed at [facility], [address] | | | | | [address], | | | | | [place] [address] | | | + + + + + + + | Specimen | + + | Blood | + + + + + + + | Performing | Address | City/State/Zipcode | Phone Number | | Organization | | | | + + + + + | [facility] | [address] | [place] [address] | [phone] | | LABORATORY | [address] | | [...] performed | | | | | at [facility], [address] | | | | | [facility], | | | | | [place] [address] | | | | |Testing performed at [facility], [address] [facility], [place] [address] | | | | | | | | + + + + + + + | Specimen | + + | Blood | + + + + + + + | Performing | Address | City/State/Zipcode | Phone Number | | Organization | | | | + + + + + | [facility] | [address] | [place] [address] | [phone] | | LABORATORY | Blvd. | | [...] | | | antibiotic" for pneumonia at [facility] ED. Was throwing up & [...] 10.7 (L) 05/30/2018 Assessment: | | | Dnai is a 23 y.o. female patient with [...] his findings & | | | documentation. KRISNHA Waters started the documentation. | | | [...] 0.8 | 0.1 - 1.5 mg/dL | [facility] | | | | | LABORATORY | [...] | | | | performed at [facility], [address] | | | | | [facility], | | | | | [place] [address] | | | + + + + + + + | Specimen | + + | Blood | + + + + + + + | Performing | Address | City/State/Zipcode | Phone Number | | Organization | | | | + + + + + | [facility] | [address] | [place] [address] | [phone] | | LABORATORY | Blvd. | | [...] performed | | | | | at [facility], [address] | | | | | [facility], | | | | | [place] [address] | | | | |Testing performed at [facility], [address] [facility] [place] [address] | | | | | | | | + + + + + + + | Specimen | + + | Blood | + + + + + + + | Performing | Address | City/State/Zipcode | Phone Number | | Organization | | | | + + + + + | [facility] | [address] | [place] [address] | [phone] | | LABORATORY | Blvd. | | [...] | + + + + + | [facility] | [address] | [place] [address] | | + + + + + Cholesterol, body fluid (05/29/2018 12:56 PM) + + + + + | Component | Value | Ref Range | Performed At | + + + + + | FLUID CHOLESTEROL | 56Comment: This is not a | mg/dL | [facility] | | | facing cutting machine operator validated | | LABORATORY | | | sample type for this | | | | | method. No reference | | | | | ranges have been | | | | | established.Testing | | | | | performed at [facility], [address] | | | | | [facility], | | | | | [place] [address] | | | + + + + + + + | Specimen | + + | Body Fluid - | | Pleural, Right | + + + + + + + | Performing | Address | City/State/Zipcode | Phone Number | | Organization | | | | + + + + + | [facility] | [address] | [place] [address] | [phone] | | LABORATORY | [address]vd. | | | + + + + + Lactate dehydrogenase, body fluid (05/29/2018 12:56 PM) + + + + + | Component | Value | Ref Range | Performed At | + + + + + | FLUID LDH | 151Comment: This is not | U/L | [facility] | | | a facing cutting machine operator validated | | LABORATORY | | | sample type for this | | | | | method. No reference | | | | | ranges have been | | | | | established.Testing | | | | | performed at [facility], [address] | | | | | [facility], | | | | | [place] [address] | | | + + + + + + + | Specimen | + + | Body Fluid - | | Pleural, Right | + + + + + + + | Performing | Address | City/State/Zipcode | Phone Number | | Organization | | | | + + + + + | [facility] | [address] | [place] [address] | [phone] | | LABORATORY | [address]vd[address] | | [...] + + + + + | [facility] | [address] | [place] [address] | [phone] | | LABORATORY | [address]vd. | | [...] | | space is punctured with an 8-[place] thoracentesis catheter. Fluid is | | | [...] the pleural space is punctured with an 8-[place] | | thoracentesis catheter. Fluid is [...] | + + + + + | [facility] | [address] | [place] [address] | | + + + + + APTT (05/29/2018 8:52 AM) + + + + + | Component | Value | Ref Range | Performed At | + + + + + | APTT | 29Comment: Testing | 23 - 32 seconds | [facility] | | | performed at [facility];[address];[place] | | | | | [address] | | | + + + + + + + | Specimen | + + | Blood | + + + + + + + | Performing | Address | City/State/Zipcode | Phone Number | | Organization | | | | + + + + + | [facility] | [address] | [place] [address] | | + + + + + Protime-INR (05/29/2018 8:52 AM) + + + + + | Component | Value | Ref Range | Performed At | + + + + + | INR | 1.5Comment: REFERENCE | | [facility] | | | RANGE:0.9 - [...] | | | | | performed at [facility];[address] | | | | | [address];[place] | | | | | [address] | | | + + + + + + + | Specimen | + + | Blood | + + + + + + + | Performing | Address | City/State/Zipcode | Phone Number | | Organization | | | | + + + + + | [facility] | [address] | [place] [address] | | + + + + + [...] 14 | 5 - 20 mmol/L | [facility] | | | | | LABORATORY | + + + + + | GLUCOSE | 94Comment: SPECIMEN | 65 - 99 mg/dL | [facility] | | | SLIGHTLY HEMOLYZED | [...] LIVING traceable | | | | | equation.Testing | | | | | performed at [facility], [address] | | | | | [facility], | | | | | [place] [address] | | | + + + + + + + | Specimen | + + | Blood | + + + + + + + | Performing | Address | City/State/Zipcode | Phone Number | | Organization | | | | + + + + + | [facility] | [address] | [place] [address] | [phone] | | LABORATORY | [address] | | [...] performed | | | | | at [facility], [address] | | | | | [facility], | | | | | [place] [address] | | | | |Testing performed at [facility], [address] [place] [address] | | | | | | | | + + + + + + + | Specimen | + + | Blood | + + + + + + + | Performing | Address | City/State/Zipcode | Phone Number | | Organization | | | | + + + + + | [facility] | [address] | [place] [address] | [phone] | | LABORATORY | [address] | | [...] | + + + + + | [facility] | [address] | [place] [address] | | + + + + + Troponin I (05/28/2018 1:59 PM) + + + + + | Component | Value | Ref Range | Performed At | + + + + + | TROPONIN I | 0.037Comment: 0.04 | 0.00 - 0.04 ng/mL | [facility] | | | ng/mL or [...] performed at | | | | | [facility];[address] | | | | [address];[place] [address] | | | + + + + + + + | Specimen | + + | Blood | + + + + + + + | Performing | Address | City/State/Zipcode | Phone Number | | Organization | | | | + + + + + | [facility] | [address] | [place] [address] | | + + + + + [...] | | | | performed at [facility], [address] | | | | | [facility], | | | | | [place] [address] | | | + + + + + + + | Specimen | + + | Blood | + + + + + + + | Performing | Address | City/State/Zipcode | Phone Number | | Organization | | | | + + + + + | [facility] | [address] [place] [address] | [place] [address] | [phone] | | LABORATORY | [address] | | [...] performed at | | | | | [facility], [address] [place] [address] | | | | | [place] | | | | | [address] | | | + + + + + + + | Specimen | + + | Blood | + + + + + + + | Performing | Address | City/State/Zipcode | Phone Number | | Organization | | | | + + + + + | [facility] | [address] | [place] [address] | [phone] | | LABORATORY | [address]vd[address] | | | + + + + + Renal function panel (05/28/2018 12:09 PM) + + + + + | Component | Value | Ref Range | Performed At | + + + + + | SODIUM | 141 | 135 - 145 mmol/L | [facility] | + + + + + [...] 9.1 | 8.5 - 10.5 mg/dL | [facility] | + + + + + | Albumin | 3.6 | 3.6 - 5.0 g/dL | [facility] | + + + + + | PHOSPHORUS | 6.3 (H) | 2.3 - 4.8 mg/dL | [facility] | + + + + + | EGFR | 6 (L)Comment: GFR <60: | >60 mL/min/1.73m2 | [facility] | | | CHRONIC KIDNEY [...] | | | | | performed at [facility];[address] | | | | | [address];[place] | | | | | [address] | | | + + + + + + + | Specimen | + + | Blood - Blood | + + + + + + + | Performing | Address | City/State/Zipcode | Phone Number | | Organization | | | | + + + + + | [facility] | [address] | [place] [address] | | + + + + + [...] + + + + | Calculated P Laotto | 24 | degrees | [facility] | + + + + + | Calculated R Laotto | 24 | degrees | [facility] | + + + + + | Calculated T Laotto | 103 | degrees | [facility] [...] + + + + + | [facility] | [address] | [place] [address] | | + + + + + hCG, serum, qualitative (05/28/2018 9:23 AM) + + + + + | Component | Value | Ref Range | Performed At | + + + + + | TEST,SERUM | NEGATIVEComment: Testing | NEGATIVE | [facility] | | | performed at [facility], [facility] | | LABORATORY | | | [address], | | | | | [place] [address] | | | + + + + + + + | Specimen | + + | Blood | + + + + + + + | Performing | Address | City/State/Zipcode | Phone Number | | Organization | | | | + + + + + | [facility] | [address] | [place] [address] | [phone] | | LABORATORY | [address] | | | + + + + + C-reactive protein (05/28/2018 9:23 AM) + + + + + | Component | Value | Ref Range | Performed At | + + + + + | CRP | 5.1 (H)Comment: Testing | <0.5 mg/dL | [facility] | | | performed at [facility], [address] | | LABORATORY | | | [address], | | | | | [place] [address] | | | + + + + + + + | Specimen | + + | Blood | + + + + + + + | Performing | Address | City/State/Zipcode | Phone Number | | Organization | | | | + + + + + | [facility] | [address] | [place] [address] | [phone] | | LABORATORY | [address]vd[address] | | | + + + + + Sedimentation rate, automated (05/28/2018 9:23 AM) + + + + + | Component | Value | Ref Range | Performed At | + + + + + | ESR | 2Comment: Testing | 0 - 20 mm/Hr | [facility] | | | performed at [facility], [address] | | LABORATORY | | | [address], | | | | | [place] [address] | | | + + + + + + + | Specimen | + + | Blood | + + + + + + + | Performing | Address | City/State/Zipcode | Phone Number | | Organization | | | | + + + + + | [facility] | [address] | [place] [address] | [phone] | | LABORATORY | [address] | | | + + + + + TSH (05/28/2018 9:23 AM) + + + + + | Component | Value | Ref Range | Performed At | + + + + + | TSH | 1.270Comment: Testing | 0.450 - 5.100 uIU/mL | [facility] | | | performed at [facility], [address] | | LABORATORY | | | [address], | | | | | [place] [address] | | | + + + + + + + | Specimen | + + | Blood | + + + + + + + | Performing | Address | City/State/Zipcode | Phone Number | | Organization | | | | + + + + + | [facility] | [address] | [place] [address] | [phone] | | LABORATORY | [address]vd[address] | | | + + + + + Troponin I (05/28/2018 9:23 AM) + + + + + | Component | Value | Ref Range | Performed At | + + + + + | TROPONIN I | 0.034Comment: 0.04 | 0.00 - 0.04 ng/mL | [facility] | | | ng/mL or [...] performed at | | | | | [facility];[address] [place] [address] | | | | | [facility] [address] | | | + + + + + + + | Specimen | + + | Blood | + + + + + + + | Performing | Address | City/State/Zipcode | Phone Number | | Organization | | | | + + + + + | [facility] | [address] | [place] [address] | | + + + + + [...] (L)Comment: GFR <60: | >60 mL/min/1.73m2 | [facility] | | | CHRONIC KIDNEY DISEASE, [...] | | | | performed at [facility], [address] | | | | | [facility], | | | | | [place] [address] | | | + + + + + + + | Specimen | + + | Blood | + + + + + + + | Performing | Address | City/State/Zipcode | Phone Number | | Organization | | | | + + + + + | [facility] | [address] | [place] [address] | [phone] | | LABORATORY | [address] | | [...] performed | | | | | at [facility], [address] | | | | | [employer], | | | | | [place] [address] | | | | |Testing performed at [facility], [address] [facility], [place] [address] | | | | | | | | + + + + + + + | Specimen | + + | Blood | + + + + + + + | Performing | Address | City/State/Zipcode | Phone Number | | Organization | | | | + + + + + | [facility] | [address] | [place] [address] | [phone] | | LABORATORY | [address] | | [...] PERFORMING LABORATORY: Technical preparation was performed by [employer] | | | [facility], [address] [place] [address] | | | (Chamber Magistrate: Matt Claudio D.O.; CLIA#: [id number]). | | | Professional interpretation was performed by [employer], | | | [facility], [address] [place] [id number] | | | (Chamber Magistrate: Daniel Larsno M.D.; CLIA#: [id number]).6 | | | Diagnostician: Marie BROOKS ([facility]) Chief Deputy Clerk/Bailiff | | | Diagnostician: Anahy Da Silva MD Pathologist Electronically Signed | | | 05/30/2018 | | + + + + +---------+ + + | Performing | Address | City/State/Zipcode | Phone Number | | Organization | | | | + +---------+ + + | [facility] | | | | + [...] + + + | [facility] | [address] | [place] [address] | [phone] | | LABORATORY | [address] | | [...] performed at | | | | | [facility], [address] [place] [address] | | | | | [place] | | | | | [address] | | | + + + + + + + + + + | Performing | Address | City/State/Zipcode | Phone Number | | Organization | | | | + + + + + | [facility] | [address] | [place] [address] | [phone] | | LABORATORY | [address] | | [...] valve is normal. 18. | | | Eqrj-kg-smmoqdlq eccentric mitral regurgitation is present. 19. | [...] DARA LOUISE Date of : 1995 | [facility] | | Performing Physician: Robel De [...] valve is normal. 18. | | | Tmgi-rn-xodeqfbx eccentric mitral regurgitation is present. 19. | [...] is | | | normal. Mitral Valve: Syea-fd-dfevdbbq eccentric mitral | | | regurgitation is [...] TR Vmax: 2.74 m/s | | | Locomotive Inspector: MW Authenticated by: Robel Yusuf MD Report | | | Date/Time: 05-27-2018 13:59:57 | | + + + + + | Procedure Note | + + | Sonido Steele In - 05/27/2018 2:00 PM PDT Patient Name: Anders LOUISE of | | : 1995Accession: [id number] Physician: Robel Yusuf | | MD INDICATIONS [...] aortic stenosis.17. The mitral valve is normal.18. Qwio-zk-srratqld | | eccentric mitral regurgitation is present.19. [...] | | arch are normal.26. No mass nmpkdrvifa84. No clot visualizedFINDINGS--------ECG rhythm: | | Sinus [...] The mitral valve is normal. Mitral Valve: Vzjt-jw-wgzhvncz eccentric mitral | | regurgitation is present.Tricuspid [...] (A-L): 30.43 | | ml/m2LAAs A2C: 20.97 [id number] A-L A2C: 65.71 mlLALs A2C: 5.68 cmLAAs A4C: 19.94 | | [id number] A-L A4C: 60.20 mlLALs A4C: 5.60 cmTAPSE: 1.58 cmHR: 79.62 BPMAV maxPG: | | 6.06 mmHgAV meanP.71 mmHgAV Vmax: 1.23 m/Elizabeth Vmean: 0.92 m/Elizabeth VTI: 20.07 | | cmAVA Vmax: 1.74 cm2AVA (VTI): 1.93 [id number] Vmax: 0.00 cm2/m2AVAI (VTI): 0.00 | | [...] The mitral valve is | | normal.18. Jjlb-ku-grqxwxky eccentric mitral regurgitation is present.19. Severe | [...] and aortic arch are normal.26. No mass njqzvyaymr55. No clot visualized | |LVIDd: 4.99 cm [...] |TR Vmax: 2.74 m/s | | | |Locomotive Inspector: MW | |Authenticated by: Robel Yusuf MD [...] The mitral valve is normal. | |18. Qugt-nu-prborsvm eccentric mitral regurgitation is present. | |19. [...] | + + + + + | [facility] | [address] | [place] [address] | | + + + + + [...] + + + + + | [facility] | [address] | [place] [address] | | + + + + + Brain natriuretic peptide (05/27/2018 4:25 AM) + + + + + | Component | Value | Ref Range | Performed At | + + + + + | BRAIN NATRIURETIC | 1153.92 (H)Comment: | 0 - 100 pg/mL | [facility] | | PEPTIDE | Testing performed at | | | | | [facility];[address] | | | | | [address];[place] [address] | | | + + + + + + + | Specimen | + + | Blood | + + + + + + + | Performing | Address | City/State/Zipcode | Phone Number | | Organization | | | | + + + + + | [facility] | [address] | [place] [address] | | + + + + + Phosphorus (05/27/2018 4:25 AM) + + + + + | Component | Value | Ref Range | Performed At | + + + + + | PHOSPHORUS | 8.0 (H)Comment: Testing | 2.3 - 4.8 mg/dL | [facility] | | | performed at [facility], [address] | | LABORATORY | | | [address], | | | | | [place] [address] | | | + + + + + + + | Specimen | + + | Blood | + + + + + + + | Performing | Address | City/State/Zipcode | Phone Number | | Organization | | | | + + + + + | [facility] | [address] | [place] [address] | [phone] | | LABORATORY | [address]vd[address] | | | + + + + + Magnesium (05/27/2018 4:25 AM) + + + + + | Component | Value | Ref Range | Performed At | + + + + + | MAGNESIUM | 2.7 (H)Comment: Testing | 1.7 - 2.4 mg/dL | [facility] | | | performed at [facility], [address] | | LABORATORY | | | [address], | | | | | [place] [address] | | | + + + + + + + | Specimen | + + | Blood | + + + + + + + | Performing | Address | City/State/Zipcode | Phone Number | | Organization | | | | + + + + + | [facility] | [address] | [place] [address] | [phone] | | LABORATORY | [address] | | [...] | | | | performed at [facility], [address] | | | | [facility], | | | | | [place] [address] | | | + + + + + + + | Specimen | + + | Blood | + + + + + + + | Performing | Address | City/State/Zipcode | Phone Number | | Organization | | | | + + + + + | [facility] | [address] | [place] [address] | [phone] | | LABORATORY | [address] | | | + + + + + CBC w/auto diff (reflex to manual) (05/27/2018 4:25 AM) + + + + + | Component | Value | Ref Range | Performed At | + + + + + | WBC | 6.62 | 3.80 - 11.00 K/uL | [facility] | + + + + + | RBC | 3.48 (L) | 3.70 - 5.10 M/uL | [facility] | + + + + + | HGB | 12.5 | 11.3 - 15.5 g/dL | [facility] | + + + + + | HCT | 37.9 | 34.0 - 46.0 % | [facility] | + + + + + | MCV | 108.8 (H) | 80.0 - 100.0 fl | [facility] | + + + + + | MCH | 35.8 (H) | 27.0 - 34.0 pg | [facility] | + + + + + | MCHC | 32.9 | 32.0 - 35.5 g/dL | [facility] | + + + + [...] + | MORPHOLOGY | 2+ | | [facility] | | | Comment: | | | | | MACRO | | | | | NORMAL PLT MORPH | | | | | | | | + + + + + | Platelet Estimate | DECREASEDComment: | | [facility] | | | Testing performed at | | | | | [facility];[address] | | | | | [place] [address] | | | + + + + + + + | Specimen | + + | Blood | + + + + + + + | Performing | Address | City/State/Zipcode | Phone Number | | Organization | | | | + + + + + | [facility] | [address] | [place] [address] | | + + + + + MRSA by PCR (05/26/2018 6:06 PM) + + + + + | Component | Value | Ref Range | Performed At | + + + + + | SOURCE | NARES(NOSE) | | [facility] | + + + + + | MRSA PCR | NEGATIVEComment: Testing | NEGATIVE | [facility] | | | performed at [facility];[address] | | | | | [address];[place] | | | | | [address] | | | + + + + + + + | Specimen | + + | Nasopharyngeal - | | Nares(Nose) | + + + + + + + | Performing | Address | City/State/Zipcode | Phone Number | | Organization | | | | + + + + + | [facility] | [address] | [place] [address] | | + + + + + [...] INTERP | Testing performed by | | [facility] | | | Molecular | | LABORATORY | | | MethodologyComment: | | | | | Testing performed at | | | | | [facility], [address] | | | | | [place], [place] | | | | | [address] | | | + + + + + + + | Specimen | + + | Nasopharynx/Orophary | | nx | + + + + + + + | Performing | Address | City/State/Zipcode | Phone Number | | Organization | | | | + + + + + | [facility] | [address] | [place] [address] | [phone] | | [facility] | [place] | | | + + + + + PROCALCITONIN (05/26/2018 5:27 PM) + + + + + | Component | Value | Ref Range | Performed At | + + + + + | PROCALCITONIN | 0.76 (H)Comment: | <0.5 ng/mL | [facility] | | | INTERPRETIVE | [...] performed | | | | | at [facility];[address] | | | | | [place] [address] | | | + + + + + + + + + + | Performing | Address | City/State/Zipcode | Phone Number | | Organization | | | | + + + + + | [facility] | [address] | [place] [address] | | + + + + + [...] [facility] | [address] | [place] [address] | | + + + + + [...] | + + + + + | [facility] | [address] | [place] [address] | | + + + + + [...] + + + + + | [facility] | [address] | [place] [address] | [phone] | | LABORATORY | [address]vd[address] | | | + + + + + | [facility] | [address] | [place] [address] | | + + + + + Pathologist consult (05/26/2018 2:12 PM) + + + + + | Component | Value | Ref Range | Performed At | + + + + + | Pathologist Consult | Comment: Review of | | [facility] | | | pleural fluid [...] performed | | | | | at [facility];[address] | | | | | [address];[place] [address] | | | + + + + + + + + + + | Performing | Address | City/State/Zipcode | Phone Number | | Organization | | | | + + + + + | [facility] | [address] | [place] [address] | | + + + + + Total Protein, Body Fluid (05/26/2018 2:12 PM) + + + + + | Component | Value | Ref Range | Performed At | + + + + + | FLUID TOTAL PROTEIN | 4.2Comment: This is not | g/dL | [facility] | | | a facing cutting machine operator validated | | LABORATORY | | | sample type for this | | | | | method. No reference | | | | | ranges have been | | | | | established.Testing | | | | | performed at [facility], [address] | | | | | [address], | | | | | [place] [address] | | | + + + + + | FLUID TP SOURCE | PLEURAL FLUIDComment: | | [facility] | | | Testing performed at | | | | | [facility];[address] | | | | | [place] [address] | | | + + + + + + + | Specimen | + + | Body Fluid - Lung, | | Right Lower Lobe | + + + + + + + | Performing | Address | City/State/Zipcode | Phone Number | | Organization | | | | + + + + + | [facility] | [address] | [place] [address] | | + + + + + | [facility] | [address] | [place] [address] | [phone] | | LABORATORY | [address]vd[address] | | | + + + + + Albumin, Body Fluid (05/26/2018 2:12 PM) + + + + + | Component | Value | Ref Range | Performed At | + + + + + | FLUID ALBUMIN | 2.3Comment: This is not | g/dL | [facility] | | | a facing cutting machine operator validated | | LABORATORY | | | sample type for this | | | | | method. No reference | | | | | ranges have been | | | | | established.Testing | | | | | performed at [facility], [address] | | | | [facility], | | | | | [place] [address] | | | + + + + + + + | Specimen | + + | Body Fluid - Lung, | | Right Lower Lobe | + + + + + + + | Performing | Address | City/State/Zipcode | Phone Number | | Organization | | | | + + + + + | [facility] | [address] | [place] [address] | [phone] | | LABORATORY | [address] | | | + + + + + pH, Body Fluid (05/26/2018 2:12 PM) + + + + + | Component | Value | Ref Range | Performed At | + + + + + | FLUID PH | 7.45Comment: Testing | | [facility] | | | performed at [facility];[address] | | | | | [address];[place] | | | | | [address] | | | + + + + + + + | Specimen | + + | Body Fluid - Lung, | | Right Lower Lobe | + + + + + + + | Performing | Address | City/State/Zipcode | Phone Number | | Organization | | | | + + + + + | [facility] | [address] | [place] [address] | | + + + + [...] | [facility] | [address] | [place] [address] | [phone] | | LABORATORY | [address]vd[address] | | | + + + + + Cell count, Body Fluid (05/26/2018 2:12 PM) + + + + + | Component | Value | Ref Range | Performed At | + + + + + | FLUID TYPE | PLEURAL FLUID | | [facility] | + + + + + | COLOR | SAMMIE | | [facility] | + + + + + | APPEARANCE | CLOUDY | | [facility] | + + + + + | RBC'S | 3,000Comment: CORRECTED | /mm3 | [facility] | | | RESULTS CALLED TO | | | | | MARIA LUISA IN ED AT 1705 | | | | | BY LGJCORRECTED ON 05/26 | | | | | AT 1702: PREVIOUSLY | | | | | REPORTED <[id number] | | | + + + + + | TOTAL NUCLEATED | 253Comment: CORRECTED | /mm3 | [facility] | | CELLS | RESULTS [...] | MONOCYTES/MACROPHAGE | 65 | % | [facility] | | S | | | | + + + + + | Mesothelial Cells | 5 | % | [facility] | + + + + + | CELLS COUNTED | 100Comment: Testing | | [facility] | | | performed at [facility];[address] | | | | | [address];[place] | | | | | [address] | | | + + + + + + + | Specimen | + + | Body Fluid - Lung, | | Right Lower Lobe | + + + + + + + | Performing | Address | City/State/Zipcode | Phone Number | | Organization | | | | + + + + + | [facility] | [address] | [place] [address] | | + + + + + PROCALCITONIN (05/26/2018 12:14 PM) + + + + + | Component | Value | Ref Range | Performed At | + + + + + | PROCALCITONIN | 0.56 (H)Comment: | <0.5 ng/mL | [facility] | | | INTERPRETIVE | [...] performed | | | | | at [facility];[address] [place] [address] | | | | | [place] [address] | | | + + + + + + + + + + | Performing | Address | City/State/Zipcode | Phone Number | | Organization | | | | + + + + + | [facility] | [address] | [place] [address] | | + + + + + Brain natriuretic peptide (05/26/2018 12:14 PM) + + + + + | Component | Value | Ref Range | Performed At | + + + + + | BRAIN NATRIURETIC | 1,188.24 (H)Comment: | 0 - 100 pg/mL | [facility] | | PEPTIDE | Testing performed at | | | | | [facility];[address] | | | | | [address];[place] [address] | | | + + + + + + + + + + | Performing | Address | City/State/Zipcode | Phone Number | | Organization | | | | + + + + + | [facility] | [address] | [place] [address] | | + + + + + Cardiac Panel (05/26/2018 12:14 PM) + + + + + | Component | Value | Ref Range | Performed At | + + + + + | WBC | 5.73 | 3.80 - 11.00 K/uL | [facility] | + + + + + | RBC | 3.32 (L) | 3.70 - 5.10 M/uL | [facility] | + + + + + | HGB | 12.1 | 11.3 - 15.5 g/dL | [facility] | + + + + + | HCT | 36.1 | 34.0 - 46.0 % | [facility] | + + + + + | MCV | 108.7 (H) | 80.0 - 100.0 fl | [facility] | + + + + + | MCH | 36.3 (H) | 27.0 - 34.0 pg | [facility] | + + + + + | MCHC | 33.4 | 32.0 - 35.5 g/dL | [facility] | + + + + + | RDW SD | 59.9 (H) | 37 - 53 fl | [facility] | + + + + + | PLT | 151 | 150 - 400 K/uL | [facility] | + + + + + | MPV | 10.1 | fl | [facility] | + + + + + | DIFF TYPE | AUTOMATED | | [facility] | + + + + + [...] | MORPHOLOGY | 2+Comment: MACRO | | [facility] | + + + + + | Platelet Estimate | ADEQUATE | | [facility] | + + + + + | SODIUM | 140 | 135 - 145 mmol/L | [facility] | + + + + + | POTASSIUM | 4.6 | 3.5 - 4.9 mmol/L | [facility] | + + + + [...] 64 | 10 - 65 U/L | [facility] | + + + + + | EGFR | 6 (L)Comment: GFR <60: | >60 mL/min/1.73m2 | [facility] | | | CHRONIC KIDNEY [...] LIVING traceable | | | | | equation. | | | + + + + + | CPK | 291 (H) | 30 - 240 U/L | [facility] | + + + + + | INR | 1.6Comment: REFERENCE | | [facility] | | | RANGE:0.9 - [...] 29 | 23 - 32 seconds | [facility] | + + + + + | MMB | 7.8 (H) | 0.5 - 3.6 ng/mL | [facility] | + + + + + | CK-MB Index | 2.7Comment: CK INDEX | | [facility] | | | INTERPRETATION: | [...] | | | | | performed at [facility];[address] | | | | | [address];[place] | | | | | [address] | | | + + + + + + + + + + | Performing | Address | City/State/Zipcode | Phone Number | | Organization | | | | + + + + + | [facility] | [address] | [place] [address] | | + + + + + [...] space: 4th Puncture | | | method: [id number] catheter Ultrasound guidance: yes | | | [...] perforation, infection and | | | pain [place] protocol: Imaging studies available: yes | [...] Performed At | + + + | [id number] Criteria Met 2 in 2 | ED [...] Count (12 mo.) Facility Visits Low Acuity [facility] | | | [facility] 1 0 [facility] 5 0 Total 6 0 | | | Note: Visits indicate total known visits. Medicaid Low Acuity Dx | | | are the number of primary diagnoses on the Medicaid's Low Acuity dx | | | list. Recent Emergency Department Visit Summary Date Facility | | | [facility] State Type Diagnoses or Chief Complaint May 26, 2018 [facility] | | | [facility] Reji Nagy [place] Emergency Chest pain, unspecified | | | May 26, 2018 [facility] Emergency Chief | | | Complaint: FLU SYMPTOMS May 25, 2018 [facility] | | | Emergency Chief Complaint: SOB/COUGH May 10, 2018 [facility] | | | [facility]. P[facility]ie [...] | | disease Feb 14, 2018 [facility] [place] 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 Emergency Chronic kidney disease, | | | unspecified Dependence on renal dialysis Pain, | | | unspecified Allergy status to narcotic agent status | | | Nicotine dependence, unspecified, uncomplicated Other terminal worker | | | (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 [...] record at this time. | | | [employer] Portal This patient has registered at the [facility] | | | [facility] Emergency Department For more information visit: | | | [email or web address] | | | [email or web address] andnbsp PLEASE NOTE: [...] | | completeness of information provided. 2019 [facility] [facility] | | | [employer]. - [employer] | | + + + + + | Procedure Note | + + | Will, Lab - 05/26/2018 12:00 PM PDT Formatting of this note may be different | | from the original.[id number] Met 2 in 2Security and | | SafetyNo recent Security Events currently on fileED Care GuidelinesThere are currently | | no ED Care Guidelines for this patient. Please check your facility's medical records | | system.Prescription Drug Report (12 Mo.)PDMP query found no report.E.D. Visit Count (12 | | mo.)Facility Visits Low Acuity [facility] 1 0 [facility] | | Hospital 5 0 Total 6 0 Note: Visits indicate total known visits. Medicaid Low Acuity Dx | | are the number of primary diagnoses on the Medicaid's Low Acuity dx list. Recent | | Emergency Department Visit SummaryDate Facility City State Type Diagnoses or Chief | | [facility] [place] [facility] Chest pain, | | unspecified May 26, 2018 [facility] [place] Emergency Chief Complaint: FLU | | SYMPTOMS May 25, 2018 [facility] [place] [place] Emergency Chief Complaint: | | SOB/COUGH May 10, 2018 [facility] [place] [place] Emergency Epistaxis Other long [...] stage renal disease Feb 14, 2018 [facility] | | [place] Emergency Functional dyspepsia Other ascites Epigastric pain | | Allergy status to narcotic agent status Radiographic dye allergy status Nicotine | | dependence, unspecified, uncomplicated Other mcc (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 [place] | | 2017 [facility] [place] [place] Emergency Chronic kidney disease, unspecified | | Dependence on renal dialysis Pain, unspecified Allergy status to narcotic agent | | status Nicotine dependence, unspecified, uncomplicated Other mcc (current) | | 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 Elevated blood-pressure [...] | PortalThis patient has registered at the [facility] Emergency | | Department For more information visit: | | [email or web address] andnbsp | | PLEASE NOTE: 1. Any [...] to the | | limitations of applicable [employer] Policies. 3. You should consult directly with | | the organization that provided a care guideline or other clinical history with any | | questions about additional information or accuracy or completeness of information | | provided.2019 [employer]ceipts. 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 [place] [facility] | | Functional dyspepsia | | Other ascites | | Epigastric pain | | Allergy status to narcotic agent status | | Radiographic dye allergy status | | Nicotine dependence, unspecified, uncomplicated | | Other mcc (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 | | | |Sep 16, 2017 [facility] [place] [facility] | | Chronic kidney disease, unspecified | | Dependence on renal dialysis | | Pain, unspecified | | Allergy status to narcotic agent status | | Nicotine dependence, unspecified, uncomplicated | | Other terminal worker (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 | | Elevated blood-pressure [...] | |This patient has registered at the [facility] Emergency Department | |For more information visit: [email or web address] | |andnbsp PLEASE NOTE: | | 1. [...] of information provided. | | | |2019 [employer]ceipts. - [email or web address] | + + + +---------+ + + [...] | + + + + + | [facility] | [address] | [place] [address] | | + + + + + [...] 10 mLs | | | | 0.5% -[id number] injection 10 mL | Other | 9 [...] PDT | | | | | Dialysis, [facility] 05/30/18 at 0730, | | | [...] PDT | | | | | Dialysis, [place] 05/27/18 at 1700, | | | | [...] PDT | | | | | Dialysis, [facility] 05/28/18 at 1230, | | | | [...] PDT | | | | | Dialysis, [facility] 06/01/18 at 0800, | | | | [...]
--- OUTSIDE RECORDS SUMMARY | ~2018-06-11 | XMS | Clinical Summary ---
Demographics + + + | Address | [address] | | | [place] [address] | + + + | Home Phone [...] + + + | Author | [facility] | + + + | Organization | [facility] | + + + | Address [...] | | | | | [place] [address] | | + + + + + | Wilson De Guzman | ECON | Unknown | | + + + + + Care Team Providers + +------+ + | Care Medical Education Manager Name | Role | Phone | [...] | Acute systolic CHF (congestive heart failure) ([facility]) | 05/28/2018 | + + + [...] | | | | | | hemodialysis ([facility]); | | | | | [...] | | | | | | failure) ([facility]); | | | | | | Hypoalbuminemia; | | | | | | Anemia in ESRD | | | | | | (end-stage renal | | | | | | disease) ([facility]); ESRD | | | | [...] | | | MRN: | | | [id number] | | | OM: | | | [...] | | went to | | | [facility] | | | Hospital | | | with | | | increasing | | | shortness | | | of breath | | | found to | | | have right | | | pleural | | | effusion | | | who was | | | transferred | | | to [facility] | | | Hospital | | | [...] | | Body Fluid | | | [[id number]] | | | Collected: | | | [...] | | Body Fluid | | | [[id number]] | | | Collected: | | | [...] | | | stain | | | [[id number]] | | | Collected: | | | [...] | | | fluid | | | [[id number]] | | | Collected: | | | [...] | | | fluid | | | [[id number]] | | | Collected: | | | [...] | | | Bharat, | | | [id number] | | | [address], RM | | | [address] | | | n [place] | | | [phone] | | | [phone] 1 | | | weekLindsay | | | Mahmood, | | | [id number] | | | GOETHALS | | | DRSTE | | | [place] | | | [place] | | | [phone] | | | [phone] 1 | | | weekJennife | | | r Ibarra, | | | [address] | | | [address] | | | [address] | | | [place] | | | [id number] | | | [phone] 1 | | [...] | Left: | SYNOVIS | | | [id number] | | 0.8x8cm - [id number]: | | Arm | | | | [...] | | | COVIDIEN | | | [id number] | | 23cmExplanted: Qty: 1 on | | | | | | 3404 / | | 04/08/2014 | | | | | | | | | | | | | | /[id number] | | | | | | | [...] | + +--------+ + + + | [facility]ARD PANEL W/O | STAT | 05/26/2018 [...] performed | | | | | at [facility], [address] | | | | [address], | | | | | [place] [address] | | | | |Testing performed at [facility], [address] [place] [address] | | | | | | | | + + + + + + + | Specimen | + + | Blood | + + + + + + + | Performing | Address | City/State/Zipcode | Phone Number | | Organization | | | | + + + + + | [facility] | [address] | [place] [address] | [phone] | | LABORATORY | Blvd. | | [...] [facility], | | | | | [place] [address] | | | + + + + + + + | Specimen | + + | Blood | + + + + + + + | Performing | Address | City/State/Zipcode | Phone Number | | Organization | | | | + + + + + | [facility] | [address] | [place] [address] | [phone] | | LABORATORY | Blvd. | | [...] | | | antibiotic" for pneumonia at [facility] ED. Was throwing up & [...] Weights | | | Encourage IS KRISHNA Wtaers Addendum: I have seen | | | [...] | + + + + + | [facility] | [address] | [place] [address] | | + + + + + Cholesterol, body fluid (05/29/2018 12:56 PM) + + + + + | Component | Value | Ref Range | Performed At | + + + + + | FLUID CHOLESTEROL | 56Comment: This is not a | mg/dL | [facility] | | | traffic routing engineer validated | | LABORATORY | | | sample type for this | | | | | method. No reference | | | | | ranges have been | | | | | established.Testing | | | | | performed at [facility], [address] | | | | | [address], | | | | | [place] [address] | | | + + + + + + + | Specimen | + + | Body Fluid - | | Pleural, Right | + + + + + + + | Performing | Address | City/State/Zipcode | Phone Number | | Organization | | | | + + + + + | [facility] | [address] | [place] [address] | [phone] | | LABORATORY | [address] | | [...] | [facility] | [address] | [place] [address] | [phone] | | LABORATORY | Blvd. | | | + + + + + Lactate dehydrogenase, body fluid (05/29/2018 12:56 PM) + + + + + | Component | Value | Ref Range | Performed At | + + + + + | FLUID LDH | 151Comment: This is not | U/L | [facility] | | | a traffic routing engineer validated | | LABORATORY | | | sample type for this | | | | | method. No reference | | | | | ranges have been | | | | | established.Testing | | | | | performed at [facility], [address] | | | | | [address], | | | | | [place] [address] | | | + + + + + + + | Specimen | + + | Body Fluid - | | Pleural, Right | + + + + + + + | Performing | Address | City/State/Zipcode | Phone Number | | Organization | | | | + + + + + | [facility] | [address] | [place] [address] | [phone] | | LABORATORY | [address] | | [...] | + + + + + | [facility] | [address] | [place] [address] | | + + + + + APTT (05/29/2018 8:52 AM) + + + + + | Component | Value | Ref Range | Performed At | + + + + + | APTT | 29Comment: Testing | 23 - 32 seconds | [facility] | | | performed at [facility];[address] | | | | | [address];[place] | | | | | [address] | | | + + + + + + + | Specimen | + + | Blood | + + + + + + + | Performing | Address | City/State/Zipcode | Phone Number | | Organization | | | | + + + + + | [facility] | [address] | [place] [address] | | + + + + + Protime-INR (05/29/2018 8:52 AM) + + + + + | Component | Value | Ref Range | Performed At | + + + + + | INR | 1.5Comment: REFERENCE | | [facility] | | | RANGE:0.9 [...] | | | | | performed at [facility];[address];[place] | | | | | [address] | | | + + + + + + + | Specimen | + + | Blood | + + + + + + + | Performing | Address | City/State/Zipcode | Phone Number | | Organization | | | | + + + + + | [facility] | [address] | [place] [address] | | + + + + + [...] | + + + + + | [facility] | [address] | [place] [address] | | + + + + + Troponin I (05/28/2018 1:59 PM)Only the most recent of 2 results within the time period is included. + + + + + | Component | Value | Ref Range | Performed At | + + + + + | TROPONIN I | 0.037Comment: 0.04 | 0.00 - 0.04 ng/mL | [facility] | | | ng/mL [...] performed at | | | | | [facility];[address] | | | | [address];[place] [address] | | | + + + + + + + | Specimen | + + | Blood | + + + + + + + | Performing | Address | City/State/Zipcode | Phone Number | | Organization | | | | + + + + + | [facility] | [address] | [facility] [address] | | + + + + + [...] performed at | | | | | [facility], [address] | | | | | [place] | | | | | [address] | | | + + + + + + + | Specimen | + + | Blood | + + + + + + + | Performing | Address | City/State/Zipcode | Phone Number | | Organization | | | | + + + + + | [facility] | [address] | [place] [address] | [phone] | | LABORATORY | Blvd. | | [...] at [facility], [facility] [address] | | | | | [facility], | | | | | [place] [address] | | | + + + + + + + | Specimen | + + | Blood | + + + + + + + | Performing | Address | City/State/Zipcode | Phone Number | | Organization | | | | + + + + + | [facility] | [address] [place] [address] | [place] [address] | [phone] | | LABORATORY | [address]. | | | + + + + + Renal function panel (05/28/2018 12:09 PM) + + + + + | Component | Value | Ref Range | Performed At | + + + + + | SODIUM | 141 | 135 - 145 mmol/L | [facility] | + + + + + [...] 9.1 | 8.5 - 10.5 mg/dL | [facility] | + + + + + | Albumin | 3.6 | 3.6 - 5.0 g/dL | [facility] | + + + + + | PHOSPHORUS | 6.3 (H) | 2.3 - 4.8 mg/dL | [facility] | + + + + + | EGFR | 6 (L)Comment: GFR <60: | >60 mL/min/1.73m2 | [facility] | | | CHRONIC [...] the | | | | | MDRD GAMS traceable | | | | | equation.Testing | | | | | performed at [facility];[address] | | | | | [address];[place] | | | | | [address] | | | + + + + + + + | Specimen | + + | Blood - Blood | + + + + + + + | Performing | Address | City/State/Zipcode | Phone Number | | Organization | | | | + + + + + | [facility] | [address] | [place] [address] | | + + + + + [...] + + + + | Calculated P [place] | 24 | degrees | [facility] | + + + + + | Calculated R [place] | 24 | degrees | [facility] | + + + + + | Calculated [place] | 103 | degrees | [facility] EKG [...] | + + + + + | [facility] | [address] | [facility] [place] [place] [address] | | + + + + + Sedimentation rate, automated (05/28/2018 9:23 AM) + + + + + | Component | Value | Ref Range | Performed At | + + + + + | ESR | 2Comment: Testing | 0 - 20 mm/Hr | [facility] | | | performed at [facility], [address] | | LABORATORY | | | [address], | | | | | [place] [address] | | | + + + + + + + | Specimen | + + | Blood | + + + + + + + | Performing | Address | City/State/Zipcode | Phone Number | | Organization | | | | + + + + + | [facility] | [address] | [place] [address] | [phone] | | LABORATORY | [address]vd[address] | | | + + + + + C-reactive protein (05/28/2018 9:23 AM) + + + + + | Component | Value | Ref Range | Performed At | + + + + + | CRP | 5.1 (H)Comment: Testing | <0.5 mg/dL | [facility] | | | performed at [facility], [address] | | LABORATORY | | | [facility], | | | | | [place] [address] | | | + + + + + + + | Specimen | + + | Blood | + + + + + + + | Performing | Address | City/State/Zipcode | Phone Number | | Organization | | | | + + + + + | [facility] | [address] | [place] [address] | [phone] | | LABORATORY | [address]vd[address] | | | + + + + + hCG, serum, qualitative (05/28/2018 9:23 AM) + + + + + | Component | Value | Ref Range | Performed At | + + + + + | TEST,SERUM | NEGATIVEComment: Testing | NEGATIVE | [facility] | | | performed at [facility], [address] | | LABORATORY | | | [address], | | | | | [place] [address] | | | + + + + + + + | Specimen | + + | Blood | + + + + + + + | Performing | Address | City/State/Zipcode | Phone Number | | Organization | | | | + + + + + | [facility] | [address] | [place] [address] | [phone] | | LABORATORY | [address]vd[address] | | | + + + + + TSH (05/28/2018 9:23 AM) + + + + + | Component | Value | Ref Range | Performed At | + + + + + | TSH | 1.270Comment: Testing | 0.450 - 5.100 uIU/mL | [facility] | | | performed at [facility], [address] | | LABORATORY | | | [address], | | | | | [place] [address] | | | + + + + + + + | Specimen | + + | Blood | + + + + + + + | Performing | Address | City/State/Zipcode | Phone Number | | Organization | | | | + + + + + | [facility] | [address] | [place] [address] | [phone] | | LABORATORY | Blvd. | | [...] PERFORMING LABORATORY: Technical preparation was performed by [facility] | | | [employer], [address] [place] [address] | | | (Lint Cleaner: Matt Claudio D.O.; IA#: [id number]). | | | Professional interpretation was performed by [facility], | | | [facility], [address] [place] [id number] | | | (Lint Cleaner: Daniel Larson M.D.; MIRNA#: [id number]).6 | | | Diagnostician: Marie BROOKS ([facility]) F[employer]rapper | | | Diagnostician: Anahy Da Silva MD Pathologist Electronically Signed | | | 05/30/2018 | | + + + + +---------+ + + | Performing | Address | City/State/Zipcode | Phone Number | | Organization | | | | + +---------+ + + | [facility] | | | | [...] [facility] | [address] | [place] [address] | [phone] | | LABORATORY | [address]vd[address] | | [...] performed at | | | | | [facility], [address] | | | | | [place] | | | | | [address] | | | + + + + + + + + + + | Performing | Address | City/State/Zipcode | Phone Number | | Organization | | | | + + + + + | [facility] | [address] | [place] [address] | [phone] | | LABORATORY | [address] | | | + + + + + Echo cardiac adult complete (05/27/2018 12:01 PM) + +---------+ + + | Component | Value | Ref Range | Performed At | + +---------+ + + | LV EF | 25 (LL) | 50 - 70 % | [facility] | | | | | [...] valve is normal. 18. | | | Uqbl-wi-zavphrhn eccentric mitral regurgitation is present. 19. | [...] valve is normal. 18. | | | Nykg-lc-qhjlarnf eccentric mitral regurgitation is present. 19. | [...] is | | | normal. Mitral Valve: Wffe-ml-fdsotfny eccentric mitral | | | regurgitation is [...] TR Vmax: 2.74 m/s | | | Skoog Patching Machine Operator: MOO Authenticated by: Robel Yusuf MD Report | | | Date/Time: 05-27-2018 13:59:57 | | + + + + + | Procedure Note | + + | Cedric, Rad Results In - 05/27/2018 2:00 PM PDT Patient Name: Amira LOUISE | | : 1995Accession: [id number] Physician: Robel Yusuf | | MD INDICATIONS [...] aortic stenosis.17. The mitral valve is normal.18. Aprg-xx-bydvezkt | | eccentric mitral regurgitation is present.19. [...] | | arch are normal.26. No mass ffrvqacxno59. No clot visualizedFINDINGS--------ECG rhythm: | | Sinus [...] The mitral valve is normal. Mitral Valve: Ffwv-jd-kwifesdo eccentric mitral | | regurgitation is present.Tricuspid [...] (A-L): 30.43 | | ml/m2LAAs A2C: 20.97 fo7XEJYQ A-L A2C: 65.71 mlLALs A2C: 5.68 cmLAAs A4C: 19.94 | | ss8GCQGN A-L A4C: 60.20 mlLALs A4C: 5.60 cmTAPSE: 1.58 cmHR: 79.62 BPMAV maxPG: | | 6.06 mmHgAV meanP.71 mmHgAV Vmax: 1.23 m/Elizabeth Vmean: 0.92 m/Elizabeth VTI: 20.07 | | cmAVA Vmax: 1.74 cm2AVA (VTI): 1.93 [id number] Vmax: 0.00 cm2/m2AVAI (VTI): 0.00 | | [...] The mitral valve is | | normal.18. Poxw-gz-vntkxayo eccentric mitral regurgitation is present.19. Severe | [...] and aortic arch are normal.26. No mass lzwpwexpvm60. No clot visualized | |LVIDd: 4.99 cm [...] |TR Vmax: 2.74 m/s | | | |Skoog Patching Machine Operator: MW | |Authenticated by: Robel Yusuf MD [...] The mitral valve is normal. | |18. Qdwt-pd-sbduzpho eccentric mitral regurgitation is present. | |19. [...] [facility] | [address] | [place] [address] | | + + + + + [...] | + + + + + | [facility] | [address] | [place] [address] | | + + + + + Phosphorus 05/27/2018 4:25 AM) + + + + + | Component | Value | Ref Range | Performed At | + + + + + | PHOSPHORUS | 8.0 (H)Comment: Testing | 2.3 - 4.8 mg/dL | [facility] | | | performed at [facility], [address] | | LABORATORY | | | [address], | | | | | [place] [address] | | | + + + + + + + | Specimen | + + | Blood | + + + + + + + | Performing | Address | City/State/Zipcode | Phone Number | | Organization | | | | + + + + + | [facility] | [address] | [place] [address] | [phone] | | LABORATORY | [address]vd. | | [...] (H)Comment: | 0 - 100 pg/mL | [facility] | | PEPTIDE | Testing performed at | | | | | [facility];[address] | | | | | [address];[place] [address] | | | + + + + + + + | Specimen | + + | Blood | + + + + + + + | Performing | Address | City/State/Zipcode | Phone Number | | Organization | | | | + + + + + | [facility] | [address] | [place] [address] | | + + + + + Magnesium (05/27/2018 4:25 AM) + + + + + | Component | Value | Ref Range | Performed At | + + + + + | MAGNESIUM | 2.7 (H)Comment: Testing | 1.7 - 2.4 mg/dL | [facility] | | | performed at [facility], [address] | | LABORATORY | | | [facility], | | | | | [place] [address] | | | + + + + + + + | Specimen | + + | Blood | + + + + + + + | Performing | Address | City/State/Zipcode | Phone Number | | Organization | | | | + + + + + | [facility] | [address] [place] [address] | [place] [address] | [phone] | | LABORATORY | [address] | | [...] [facility], | | | | | [place] [address] | | | + + + + + + + | Specimen | + + | Blood | + + + + + + + | Performing | Address | City/State/Zipcode | Phone Number | | Organization | | | | + + + + + | [facility] | [address] | [place] [address] | [phone] | | LABORATORY | [address]vd[address] | | [...] [place] | | | | | [address] | | | + + + + + + + | Specimen | + + | Nasopharynx/Orophary | | nx | + + + + + + + | Performing | Address | City/State/Zipcode | Phone Number | | Organization | | | | + + + + + | [facility] | [address] | [place] [address] | [phone] | | LABORATORY | [address]vd[address] | | | + + + + + MRSA by PCR (05/26/2018 6:06 PM) + + + + + | Component | Value | Ref Range | Performed At | + + + + + | SOURCE | NARES(NOSE) | | [facility] | + + + + + | MRSA PCR | NEGATIVEComment: Testing | NEGATIVE | [facility] | | | performed at [facility];[address] | | | | | [address];[place] | | | | | [address] | | | + + + + + + + | Specimen | + + | Nasopharyngeal - | | Nares(Nose) | + + + + + + + | Performing | Address | City/State/Zipcode | Phone Number | | Organization | | | | + + + + + | [facility] | [address] | [place] [address] | | + + + + + PROCALCITONIN (05/26/2018 5:27 PM)Only the most recent of 2 results within the time period is included. + + + + + | Component | Value | Ref Range | Performed At | + + + + + | PROCALCITONIN | 0.76 (H)Comment: | <0.5 ng/mL | [facility] | | | INTERPRETIVE [...] performed | | | | | at [facility];[address] [facility] | | | | | [address];[place] [address] | | | + + + + + + + + + + | Performing | Address | City/State/Zipcode | Phone Number | | Organization | | | | + + + + + | [facility] | [address] | [place] [address] | | + + + + + [...] + + | [facility] | [address] | [place] [address] | | + + + + [...] STAIN | STAIN PERFORMED ON | | [facility] | | | [place] | | | + + + + + | GRAM STAIN | WBC'S SEEN | | [facility] | + + + [...] [facility] | [address] | [place] [address] | [phone] | | LABORATORY | Blvd. | | | + + + + + | [facility] | [address] | [place] [address] | | + + + + + Pathologist consult (05/26/2018 2:12 PM) + + + + + | Component | Value | Ref Range | Performed At | + + + + + | Pathologist Consult | Comment: Review of | | [facility] | | | pleural [...] performed | | | | | at [facility];[address] | | | | [address];[place] [address] | | | + + + + + + + + + + | Performing | Address | City/State/Zipcode | Phone Number | | Organization | | | | + + + + + | [facility] | [address] | [place] [address] | | + + + + + Cell count, Body Fluid (05/26/2018 2:12 PM) + + + + + | Component | Value | Ref Range | Performed At | + + + + + | FLUID TYPE | PLEURAL FLUID | | [facility] | + + + + + | COLOR | SAMMIE | | [facility] | + + + + + | APPEARANCE | CLOUDY | | [facility] | + + + + + | RBC'S | 3,000Comment: CORRECTED | /mm3 | [facility] | | | RESULTS CALLED TO | | | | | ELSA IN ED AT 1705 | | | | | BY LGJCORRECTED ON 05/26 | | | | | AT 1702: PREVIOUSLY | | | | | REPORTED <[id number] | | | + + + + + | TOTAL NUCLEATED | 253Comment: CORRECTED | /mm3 | [facility] | | CELLS | [...] CELLS COUNTED | 100Comment: Testing | | [facility] | | | performed at [facility];[address] | | | | | [address];[place] | | | | | [address] | | | + + + + + + + | Specimen | + + | Body Fluid - Lung, | | Right Lower Lobe | + + + + + + + | Performing | Address | City/State/Zipcode | Phone Number | | Organization | | | | + + + + + | [facility] | [address] | [place] [address] | | + + + + + Total Protein, Body Fluid (05/26/2018 2:12 PM) + + + + + | Component | Value | Ref Range | Performed At | + + + + + | FLUID TOTAL PROTEIN | 4.2Comment: This is not | g/dL | [facility] | | | a traffic routing engineer validated | | LABORATORY | | | sample type for this | | | | | method. No reference | | | | | ranges have been | | | | | established.Testing | | | | | performed at [facility], [address] | | | | | [address], | | | | | [place] [address] | | | + + + + + | FLUID TP SOURCE | PLEURAL FLUIDComment: | | [facility] | | | Testing performed at | | | | | [facility];[address] [facility] | | | | | [address];[place] [address] | | | + + + + + + + | Specimen | + + | Body Fluid - Lung, | | Right Lower Lobe | + + + + + + + | Performing | Address | City/State/Zipcode | Phone Number | | Organization | | | | + + + + + | [facility] | [address] | [place] [address] | | + + + + + | [facility] | [address] | [place] [address] | [phone] | | LABORATORY | [address]vd[address] | | | + + + + + Albumin, Body Fluid (05/26/2018 2:12 PM) + + + + + | Component | Value | Ref Range | Performed At | + + + + + | FLUID ALBUMIN | 2.3Comment: This is not | g/dL | [facility] | | | a traffic routing engineer validated | | LABORATORY | | [...] [facility], | | | | | [place] [address] | | | + + + + + + + | Specimen | + + | Body Fluid - Lung, | | Right Lower Lobe | + + + + + + + | Performing | Address | City/State/Zipcode | Phone Number | | Organization | | | | + + + + + | [facility] | [address] | [place] [address] | [phone] | | LABORATORY | [address] | | | + + + + + pH, Body Fluid (05/26/2018 2:12 PM) + + + + + | Component | Value | Ref Range | Performed At | + + + + + | FLUID PH | 7.45Comment: Testing | | [facility] | | | performed at [facility] [place] | | | | | [address];[place], [place] | | | | | [address] | | | + + + + + + + | Specimen | + + | Body Fluid - Lung, | | Right Lower Lobe | + + + + + + + | Performing | Address | City/State/Zipcode | Phone Number | | Organization | | | | + + + + + | [facility] | [address] | [place] [address] | | + + + + + [...] 12.1 | 11.3 - 15.5 g/dL | [facility] | + + + [...] (H) | 37 - 53 fl | [facility] | + + + + + | PLT | 151 | 150 - 400 K/uL | [facility] | + + + + + | MPV | 10.1 | fl | [facility] | + + + + + [...] 0.06 | 0.00 - 0.50 K/uL | [facility] | + + + + + | BASOPHILS ABS | 0.06 | 0.00 - 0.10 K/uL | [facility] | + + + + + | MORPHOLOGY | 2+Comment: MACRO | | [facility] | + + + + + | Platelet Estimate | ADEQUATE | | [facility] | + + + + + | SODIUM | 140 | 135 - 145 mmol/L | [facility] | + + + [...] 2.9 | 1.3 - 4.9 g/dL | [facility] | + + + + + | A/G | 1.5 | 1.0 - 2.4 | [facility] | + + + + + | TBIL | 1.1 | 0.1 - 1.5 mg/dL | [facility] | + + + + + | ALK PHOS | 120 (H) | 35 - 115 U/L | [facility] | + + + + + | AST | 82 (H) | 10 - 45 U/L | [facility] | + + + + + | ALT | 64 | 10 - 65 U/L | [facility] | + + + + + | EGFR | 6 (L)Comment: GFR <60: | >60 mL/min/1.73m2 | [facility] | | | CHRONIC [...] (H) | 30 - 240 U/L | [facility] | + + + + + | INR | 1.6Comment: REFERENCE | | [facility] | | | RANGE:0.9 [...] 29 | 23 - 32 seconds | [facility] | + + + + + | MMB | 7.8 (H) | 0.5 - 3.6 ng/mL | [facility] | + + + + + | CK-MB Index | 2.7Comment: CK INDEX | | [facility] | | | INTERPRETATION: [...] | | | | | performed at [facility] [place];[address] | | | | | [address];[place] | | | | | [address] | | | + + + + + + + + + + | Performing | Address | City/State/Zipcode | Phone Number | | Organization | | | | + + + + + | [facility] | [address] | [place] [address] | | + + + + + [...] space: 4th Puncture | | | method: Rbqv-nil-umxxpt catheter Ultrasound guidance: yes | | | [...] perforation, infection and | | | pain [place] protocol: Imaging studies available: yes | | [...] Performed At | + + + | [id number] Criteria Met 2 in 2 | ED [...] Count (12 mo.) Facility Visits Low Acuity [facility] | | | [facility] 1 0 [facility] 5 0 Total 6 0 | | | Note: Visits indicate total known visits. Medicaid Low Acuity Dx | | | are the number of primary diagnoses on the Medicaid's Low Acuity dx | | | list. Recent Emergency Department Visit Summary Date Facility | | | [facility] State Type Diagnoses or Chief Complaint May 26, 2018 [facility] | | | [facility] [place] Emergency Chest pain, unspecified | | | May 26, [address] [facility] [place] [place] Emergency Chief | | | Complaint: FLU SYMPTOMS May 25, 2018 [facility] [place] | | | Emergency Chief Complaint: SOB/COUGH May 10, 2018 [facility] . | | | [place] [...] | | | disease Feb 14, 2018 [facility] [place] Emergency | | | Functional dyspepsia Other ascites Epigastric pain | | | Allergy status to narcotic agent status Radiographic dye | | | allergy status Nicotine dependence, unspecified, uncomplicated | | | Other senior care (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 Sep 16, 2017 [facility] | | | [place] Emergency Chronic kidney disease, [...] Portal This patient has registered at the [facility] | | | [facility] Emergency Department For more information visit: | | | [email or web address] | | | [email or web address] [facility] PLEASE NOTE: 1. Any care recommendations [...] | | completeness of information provided. 2019 [employer] | | | [email or web address] - [email or web address] | | + + + + + | Procedure Note | + + | Interface, Lab - 05/26/2018 12:00 PM PDT Formatting of this note may be different | | from the original.[id number] Met 2 in 2Security and | | SafetyNo recent Security Events currently on fileED Care GuidelinesThere are currently | | no ED Care Guidelines for this patient. Please check your facility's medical records | | system.Prescription Drug Report (12 Mo.)PDMP query found no report.E.D. Visit Count (12 | | mo.)Facility Visits Low Acuity [facility] [address] [facility] | | Hospital 5 0 Total 6 0 Note: Visits indicate total known visits. Medicaid Low Acuity Dx | | are the number of primary diagnoses on the Medicaid's Low Acuity dx list. Recent | | Emergency Department Visit SummaryDate Facility City State Type Diagnoses or Chief | | Complaint [facility] 2018 [facility] 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 Any [...] to the | | limitations of applicable [employer] Policies. 3. You should consult directly with | | the organization that provided a care guideline or other clinical history with any | | questions about additional information or accuracy or completeness of information | | provided.2019 [employer]. - [email or web address] | | Hypertensive heart and chronic kidney disease without heart failure, with stage 5 chroni c kidney disease, or end stage renal disease | | | |Feb 14, 2018 [facility] [place] Emergency | | Functional dyspepsia | | Other ascites | | Epigastric pain | | Allergy status to narcotic agent status | | Radiographic dye allergy status | | Nicotine dependence, unspecified, uncomplicated | | Other senior care (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 | | | |Sep 16, 2017 [facility] [place] Emergency | | Chronic [...] providers on record at this time. | |[facility] [employer] Portal | |This patient has registered at the [facility] Emergency Department | |For more information visit: [id number] [id number] | |andnbsp PLEASE NOTE: | | 1. Any care recommendations and other clinical information are provided as guidelines or for historical purposes only, and providers should exercise their own clinical judgment whe n providing care. | | 2. You may only use this information for purposes of treatment, payment or health care o perations activities, and subject to the limitations of applicable [employer] Policies. | | 3. You should consult directly with the organization that provided a care guideline or o ther clinical history with any questions about additional information or accuracy or complet eness of information provided. | | | |2019 [employer]. - [email or web address] | + + + +---------+ + + [...] +------+-------+ + | MEDICARE | MEDICA | [id number] | | | [address] | | | RE | | | | [place] [address] | | | IP-OP | | | | | + +--------+ +------+-------+ + | MEDICAID | MEDICA | [id number] | | | [address] | | | ID | | | | [place] | | | [place] | | | | [address] | + +--------+ +------+-------+ + + +--------+ [...] | | al/Fam | | 1994 | [phone] | [place] | | | [place] | | | [phone] | [phone] | + +--------+ +--------+ + +
--- OUTSIDE RECORDS SUMMARY | ~2018-06-11 | XMS | Clinical Summary ---
Demographics + + + | Address | [address] | | | [place] [address] | + + + | Home Phone [...] | | | | | [place] [address] | | + + + + + | Thania Mallory | ECON | [address] | | | | | [place] [address] | | + + + + + | Deidra Weldon | ECON | [address] | | | | | [place] | | | | | [address] | | + + + + + Care Team Providers + +------+ + | Care Medical Assistant Dermatology Name | Role | Phone | + +------+ + | Jonathan Alonso MD | PP | | + +------+ + Source Comments DANILO is fully live on both EpicCare Ambulatory and EpicCare InPatient.[facility] Allergies + + + + + [...] | | | | | | [place], [place] | | | | | | [address] | | | | | | [phone] | | | | | | | [...] | re | [address] | [place] [address] | | | B | | | | | + +--------+ +--------+ + + | SAMPLER PICKUP MEDICAID | SAMPLER PICKUP | xxxxxxxx | Medica | | | | | [place] | | id | | | | | [place] | | | | | + +--------+ +--------+ + + | MEDICARE RENAL | MEDICA | xxxxxxxxxx | Agency | | RENAL DEPT [id number] | | RECIPIENT EVAL | RE | | | | [place] [address] | | | RENAL | | | [...] | | al/Fam | | 1994 | [phone] | [address] [place] [address] | | | [place] | | | [phone] Home: | [address] | | | | | | | | | | | | | [phone] | | | | | | | [phone] | | + +--------+ +--------+ + + | CORY ALVES | Kisha | Mother | [birth year]06[birth year] | Home: | [address] # | | | l | | [phone] | [phone] | [address] [place] | | | [place] | | | [phone] | [phone] | | | g | | | | | + +--------+ +--------+ + +
--- OUTSIDE RECORDS SUMMARY | ~2018-06-11 | XMS | Clinical Summary ---
Demographics + + + | Address | [address] | | | [place] [address] | + + + | Home Phone [...] + + + | Author | [employer] [employer] | + + + | Organization | [facility] [employer] | + + + | Address [...] | | | | | [place] [address] | | + + + + + [...] systolic CHF (congestive heart failure) ([facility]) | 05/28/2018 | + + + | [...] | | | | hemodialysis ([facility]); | | | | | | Hyperkalemia; [...] | | | | failure) ([facility]); | | | | | | Hypoalbuminemia; | | | | | | Anemia in ESRD | | | | | | (end-stage renal | | | | | | disease) ([facility]); ESRD | | | | | | [...] | | | MRN: | | | [id number] | | | OM: | | | [...] | | went to | | | [facility] | | | with | | | increasing | | | shortness | | | of breath | | | found to | | | have right | | | pleural | | | effusion | | | who was | | | transferred | | | to [facility] | | | Hospital | | [...] | | Body Fluid | | | [[id number]] | | | Collected: | | | [...] | | Body Fluid | | | [[id number]] | | | Collected: | | | [...] | | | stain | | | [[id number]] | | | Collected: | | | [...] | | | fluid | | | [[id number]] | | | Collected: | | | [...] | | | fluid | | | [[id number]] | | | Collected: | | | [...] | | | Bharat, | | | [id number] | | [address], [place] | | | [address] | | | n [place] | | | [id number] | | | [phone] 1 | | | weekLindsay | | | Mahmood, | | | [id number] | | | GOETHALS | | | DRSTE | | | [place] | | | [place] | | | [phone] | | | [phone] 1 | | | weekJennife | | | r Ibarra, | | | [address] | | | [address] | | | [address] | | | [place] | | | [id number] | | | [phone] 1 | | [...] | Left: | SYNOVIS | | | [id number] | | 0.8x8cm - [id number]: | | Arm | | | | [...] | | | COVIDIEN | | | [id number] | | 23cmExplanted: Qty: 1 on | | | | | | [id number] / | | 04/08/2014 | | | | | | | | | | | | | | /[id number] | | | | | | | [...] | at [facility], [address] | | | | [address], | | | | | [place] [address] | | | | |Testing performed at [facility], [address] [place] [address] | | | | | | | | + + + + + + + | Specimen | + + | Blood | + + + + + + + | Performing | Address | City/State/Zipcode | Phone Number | | Organization | | | | + + + + + | [facility] | [address] | [place] [address] | [phone] | | LABORATORY | Blvd. | | [...] performed at [facility], [address] | | | | | [facility], | | | | | [place] [address] | | | + + + + + + + | Specimen | + + | Blood | + + + + + + + | Performing | Address | City/State/Zipcode | Phone Number | | Organization | | | | + + + + + | [facility] | [address] | [place] [address] | [phone] | | LABORATORY | Blvd. | | [...] | | | antibiotic" for pneumonia at [facility] [...] | [address] | [place] [address] | | + + + + + Cholesterol, body fluid (05/29/2018 12:56 PM) + + + + + | Component | Value | Ref Range | Performed At | + + + + + | FLUID CHOLESTEROL | 56Comment: This is not a | mg/dL | [facility] | | | treasury consultant validated | | LABORATORY | | | sample type for this | | | | | method. No reference | | | | | ranges have been | | | | | established.Testing | | | | | performed at [facility], [address] | | | | | [address], | | | | | [place] [address] | | | + + + + + + + | Specimen | + + | Body Fluid - | | Pleural, Right | + + + + + + + | Performing | Address | City/State/Zipcode | Phone Number | | Organization | | | | + + + + + | [facility] | [address] | [place] [address] | [phone] | | LABORATORY | [address] | | [...] + + + | [facility] | [address] | [place] [address] | [phone] | | LABORATORY | Blvd. | | | + + + + + Lactate dehydrogenase, body fluid (05/29/2018 12:56 PM) + + + + + | Component | Value | Ref Range | Performed At | + + + + + | FLUID LDH | 151Comment: This is not | U/L | [facility] | | | a treasury consultant validated | | LABORATORY | | | sample type for this | | | | | method. No reference | | | | | ranges have been | | | | | established.Testing | | | | | performed at [facility], [address] | | | | | [address], | | | | | [place] [address] | | | + + + + + + + | Specimen | + + | Body Fluid - | | Pleural, Right | + + + + + + + | Performing | Address | City/State/Zipcode | Phone Number | | Organization | | | | + + + + + | [facility] | [address] | [place] [address] | [phone] | | LABORATORY | [address] | | [...] | | space is punctured with an 8-Macedonian thoracentesis catheter. Fluid is | | | [...] the pleural space is punctured with an 8-Macedonian | | thoracentesis catheter. Fluid is aspirated [...] | + + + + + | [facility] | [address] | [place] [address] | | + + + + + APTT (05/29/2018 8:52 AM) + + + + + | Component | Value | Ref Range | Performed At | + + + + + | APTT | 29Comment: Testing | 23 - 32 seconds | [facility] | | | performed at [facility];[address] | | | | | [address];[place] | | | | | [address] | | | + + + + + + + | Specimen | + + | Blood | + + + + + + + | Performing | Address | City/State/Zipcode | Phone Number | | Organization | | | | + + + + + | [facility] | [address] | [place] [address] | | + + + + + Protime-INR (05/29/2018 8:52 AM) + + + + + | Component | Value | Ref Range | Performed At | + + + + + | INR | 1.5Comment: REFERENCE | | [facility] | | | RANGE:0.9 - [...] [address]vd;[place] | | | | | [address] | | | + + + + + + + | Specimen | + + | Blood | + + + + + + + | Performing | Address | City/State/Zipcode | Phone Number | | Organization | | | | + + + + + | [facility] | [address] | [place] [address] | | + + + + + [...] peritoneal dialysis. | | Signed by: MD aB Gregory | | Sign Date/Time: 05/28/2018 9:24 PM | + + + + + + + | Performing | Address | City/State/Zipcode | Phone Number | | Organization | | | | + + + + + | [facility] | [address] | [place] [address] | | + + + + + Troponin I (05/28/2018 1:59 PM)Only the most recent of 2 results within the time period is included. + + + + + | Component | Value | Ref Range | Performed At | + + + + + | TROPONIN I | 0.037Comment: 0.04 | 0.00 - 0.04 ng/mL | [facility] | | | ng/mL or [...] [place];[address] | | | | | [address];[place] [address] | | | + + + + + + + | Specimen | + + | Blood | + + + + + + + | Performing | Address | City/State/Zipcode | Phone Number | | Organization | | | | + + + + + | [facility] | [address] | [facility] [place] [address] | | + + + + + [...] performed at | | | | | [facility], [address] | | | | | [place] | | | | | [address] | | | + + + + + + + | Specimen | + + | Blood | + + + + + + + | Performing | Address | City/State/Zipcode | Phone Number | | Organization | | | | + + + + + | [facility] | [address] | [place] [address] | [phone] | | LABORATORY | Blvd. | | [...] performed at [facility], [address] [facility] [address] | | | | | [facility], | | | | | [place] [address] | | | + + + + + + + | Specimen | + + | Blood | + + + + + + + | Performing | Address | City/State/Zipcode | Phone Number | | Organization | | | | + + + + + | [facility] | [address] [place] [address] | [place] [address] | [phone] | | LABORATORY | [address]. | | | + + + + + Renal function panel (05/28/2018 12:09 PM) + + + + + | Component | Value | Ref Range | Performed At | + + + + + | SODIUM | 141 | 135 - 145 mmol/L | [facility] | + + + + + [...] 9.1 | 8.5 - 10.5 mg/dL | [facility] | + + + + + | Albumin | 3.6 | 3.6 - 5.0 g/dL | [facility] | + + + + + | PHOSPHORUS | 6.3 (H) | 2.3 - 4.8 mg/dL | [facility] | + + + + + | EGFR | 6 (L)Comment: GFR <60: | >60 mL/min/1.73m2 | [facility] | | | CHRONIC KIDNEY [...] the | | | | | MDRD WIMS traceable | | | | | equation.Testing | | | | | performed at [facility];[address] | | | | | [address];[place] | | | | | [address] | | | + + + + + + + | Specimen | + + | Blood - Blood | + + + + + + + | Performing | Address | City/State/Zipcode | Phone Number | | Organization | | | | + + + + + | [facility] | [address] | [place] [address] | | + + + + + [...] + + + + | Calculated P Norton | 24 | degrees | [facility] | + + + + + | Calculated R Norton | 24 | degrees | [facility] | + + + + + | Calculated T Norton | 103 | degrees | [facility] [...] | + + + + + | [facility] | [address] | [facility] [address] | | + + + + + Sedimentation rate, automated (05/28/2018 9:23 AM) + + + + + | Component | Value | Ref Range | Performed At | + + + + + | ESR | 2Comment: Testing | 0 - 20 mm/Hr | [facility] | | | performed at [facility], [address] | | LABORATORY | | | [address], | | | | | [place] [address] | | | + + + + + + + | Specimen | + + | Blood | + + + + + + + | Performing | Address | City/State/Zipcode | Phone Number | | Organization | | | | + + + + + | [facility] | [address] | [place] [address] | [phone] | | LABORATORY | [address]vd[address] | | | + + + + + C-reactive protein (05/28/2018 9:23 AM) + + + + + | Component | Value | Ref Range | Performed At | + + + + + | CRP | 5.1 (H)Comment: Testing | <0.5 mg/dL | [facility] | | | performed at [facility], [address] | | LABORATORY | | | [facility], | | | | | [place] [address] | | | + + + + + + + | Specimen | + + | Blood | + + + + + + + | Performing | Address | City/State/Zipcode | Phone Number | | Organization | | | | + + + + + | [facility] | [address] | [place] [address] | [phone] | | LABORATORY | [address]vd[address] | | | + + + + + hCG, serum, qualitative (05/28/2018 9:23 AM) + + + + + | Component | Value | Ref Range | Performed At | + + + + + | TEST,SERUM | NEGATIVEComment: Testing | NEGATIVE | [facility] | | | performed at [facility], [address] | | LABORATORY | | | [address], | | | | | [place] [address] | | | + + + + + + + | Specimen | + + | Blood | + + + + + + + | Performing | Address | City/State/Zipcode | Phone Number | | Organization | | | | + + + + + | [facility] | [address] | [place] [address] | [phone] | | LABORATORY | [address]vd[address] | | | + + + + + TSH (05/28/2018 9:23 AM) + + + + + | Component | Value | Ref Range | Performed At | + + + + + | TSH | 1.270Comment: Testing | 0.450 - 5.100 uIU/mL | [facility] | | | performed at [facility], [address] | | LABORATORY | | | [address], | | | | | [place] [address] | | | + + + + + + + | Specimen | + + | Blood | + + + + + + + | Performing | Address | City/State/Zipcode | Phone Number | | Organization | | | | + + + + + | [facility] | [address] | [place] [address] | [phone] | | LABORATORY | Blvd. | | [...] PERFORMING LABORATORY: Technical preparation was performed by [facility] | | | [facility], [address] [place] [address] | | | (Worm Farmer: Matt Claudio D.O.; IA#: [id number]). | | | Professional interpretation was performed by [facility], | | | [facility], [address] [place] [id number] | | | (Worm Farmer: Daniel Larson M.D.; MIRNA#: [id number]).6 | | | Diagnostician: Marie BROOKS ([facility]) Curator Of Manuscripts | | | Diagnostician: Anahy Da Silva MD Pathologist Electronically Signed | | | 05/30/2018 | | + + + + +---------+ + + | Performing | Address | City/State/Zipcode | Phone Number | | Organization | | | | + +---------+ + + | [facility] | | | | + [...] + + + | [facility] | [address] | [place] [address] | [phone] | | LABORATORY | [address]vd. | | [...] performed at | | | | | [facility], [address] | | | | | [place] | | | | | [address] | | | + + + + + + + + + + | Performing | Address | City/State/Zipcode | Phone Number | | Organization | | | | + + + + + | [facility] | [address] | [place] [address] | [phone] | | LABORATORY | [address] | | | + + + + + Echo cardiac adult complete (05/27/2018 12:01 PM) + +---------+ + + | Component | Value | Ref Range | Performed At | + +---------+ + + | LV EF | 25 (LL) | 50 - 70 % | [facility] | | | | | RADIOLOGY | [...] valve is normal. 18. | | | Lygl-gt-mprdiyqq eccentric mitral regurgitation is present. 19. | [...] valve is normal. 18. | | | Rprx-ll-afsillbd eccentric mitral regurgitation is present. 19. | [...] is | | | normal. Mitral Valve: Iecu-yh-ukrdcict eccentric mitral | | | regurgitation is [...] TR Vmax: 2.74 m/s | | | Curtain Roller Assembler: MOO Authenticated by: Robel Yusuf MD Report | | | Date/Time: 05-27-2018 13:59:57 | | + + + + + | Procedure Note | + + | Cedric, Rad Results In - 05/27/2018 2:00 PM PDT Patient Name: Amira LOUISE | | : 1995Accession: [id number] Physician: Robel Yusuf | | MD INDICATIONS [...] aortic stenosis.17. The mitral valve is normal.18. Qbik-yb-bxzejyrh | | eccentric mitral regurgitation is present.19. [...] | | arch are normal.26. No mass . No clot visualizedFINDINGS--------ECG rhythm: | | Sinus [...] The mitral valve is normal. Mitral Valve: Qvga-iy-pdsezzou eccentric mitral | | regurgitation is present.Tricuspid [...] (A-L): 30.43 | | ml/m2LAAs A2C: 20.97 rz2ULDCC A-L A2C: 65.71 mlLALs A2C: 5.68 cmLAAs A4C: 19.94 | | ru9KOPOP A-L A4C: 60.20 mlLALs A4C: 5.60 cmTAPSE: 1.58 cmHR: 79.62 BPMAV maxPG: | | 6.06 mmHgAV meanP.71 mmHgAV Vmax: 1.23 m/Elizabeth Vmean: 0.92 m/Elizabeth VTI: 20.07 | | cmAVA Vmax: 1.74 cm2AVA (VTI): 1.93 sq8HKQR Vmax: 0.00 cm2/m2AVAI (VTI): 0.00 | | [...] The mitral valve is | | normal.18. Ealt-ag-bnvrvilj eccentric mitral regurgitation is present.19. Severe | [...] and aortic arch are normal.26. No mass [id number]. No clot visualized | |LVIDd: 4.99 cm [...] |TR Vmax: 2.74 m/s | | | |Curtain Roller Assembler: MW | |Authenticated by: Robel Yusuf MD [...] The mitral valve is normal. | |18. Igxo-ew-earfvddm eccentric mitral regurgitation is present. | |19. [...] [facility] | [address] | [place] [address] | | + + + + + [...] | + + + + + | [facility] | [address] | [place] [address] | | + + + + + Phosphorus 05/27/2018 4:25 AM) + + + + + | Component | Value | Ref Range | Performed At | + + + + + | PHOSPHORUS | 8.0 (H)Comment: Testing | 2.3 - 4.8 mg/dL | [facility] | | | performed at [facility], [address] | | LABORATORY | | | [address], | | | | | [place] [address] | | | + + + + + + + | Specimen | + + | Blood | + + + + + + + | Performing | Address | City/State/Zipcode | Phone Number | | Organization | | | | + + + + + | [facility] | [address] | [place] [address] | [phone] | | LABORATORY | [address]vd. | | [...] (H)Comment: | 0 - 100 pg/mL | [facility] | | PEPTIDE | Testing performed at | | | | | [facility];[address] | | | | | [address];[place] [address] | | | + + + + + + + | Specimen | + + | Blood | + + + + + + + | Performing | Address | City/State/Zipcode | Phone Number | | Organization | | | | + + + + + | [facility] | [address] | [place] [address] | | + + + + + Magnesium (05/27/2018 4:25 AM) + + + + + | Component | Value | Ref Range | Performed At | + + + + + | MAGNESIUM | 2.7 (H)Comment: Testing | 1.7 - 2.4 mg/dL | [facility] | | | performed at [facility], [address] | | LABORATORY | | | [facility], | | | | | [place] [address] | | | + + + + + + + | Specimen | + + | Blood | + + + + + + + | Performing | Address | City/State/Zipcode | Phone Number | | Organization | | | | + + + + + | [facility] | [address] [place] [address] | [place] [address] | [phone] | | LABORATORY | Blvd. | | [...] performed at [facility], [address] | | | | | [facility], | | | | | [place] [address] | | | + + + + + + + | Specimen | + + | Blood | + + + + + + + | Performing | Address | City/State/Zipcode | Phone Number | | Organization | | | | + + + + + | [facility] | [address] | [place] [address] | [phone] | | LABORATORY | Blvd. | | [...] [place] | | | | | [address] | | | + + + + + + + | Specimen | + + | Nasopharynx/Orophary | | nx | + + + + + + + | Performing | Address | City/State/Zipcode | Phone Number | | Organization | | | | + + + + + | [facility] | [address] | [place] [address] | [phone] | | LABORATORY | [address]vd. | | | + + + + + MRSA by PCR (05/26/2018 6:06 PM) + + + + + | Component | Value | Ref Range | Performed At | + + + + + | SOURCE | NARES(NOSE) | | [facility] | + + + + + | MRSA PCR | NEGATIVEComment: Testing | NEGATIVE | [facility] | | | performed at [facility];[address] | | | | | [address];[place] | | | | | [address] | | | + + + + + + + | Specimen | + + | Nasopharyngeal - | | Nares(Nose) | + + + + + + + | Performing | Address | City/State/Zipcode | Phone Number | | Organization | | | | + + + + + | [facility] | [address] | [place] [address] | | + + + + + PROCALCITONIN (05/26/2018 5:27 PM)Only the most recent of 2 results within the time period is included. + + + + + | Component | Value | Ref Range | Performed At | + + + + + | PROCALCITONIN | 0.76 (H)Comment: | <0.5 ng/mL | [facility] | | | INTERPRETIVE | [...] [facility];[address] | | | | | [address];[place] [address] | | | + + + + + + + + + + | Performing | Address | City/State/Zipcode | Phone Number | | Organization | | | | + + + + + | [facility] | [address] | [place] [address] | | + + + + [...] + + | [facility] | [address] | [place] [address] | | + + + + + [...] STAIN | STAIN PERFORMED ON | | [facility] | | | CYTOSPIN | | | + + + + + | GRAM STAIN | WBC'S SEEN | | [facility] | + + + + [...] + + + | [facility] | [address] | [place] [address] | [phone] | | LABORATORY | Blvd[address] | | | + + + + + | [facility] | [address] | [place] [address] | | + + + + + Pathologist consult (05/26/2018 2:12 PM) + + + + + | Component | Value | Ref Range | Performed At | + + + + + | Pathologist Consult | Comment: Review of | | [facility] | | | pleural fluid [...] [place];[address] | | | | [address];[place] [address] | | | + + + + + + + + + + | Performing | Address | City/State/Zipcode | Phone Number | | Organization | | | | + + + + + | [facility] | [address] | [place] [address] | | + + + + + Cell count, Body Fluid (05/26/2018 2:12 PM) + + + + + | Component | Value | Ref Range | Performed At | + + + + + | FLUID TYPE | PLEURAL FLUID | | [facility] | + + + + + | COLOR | SAMMIE | | [facility] | + + + + + | APPEARANCE | CLOUDY | | [facility] | + + + + + | RBC'S | 3,000Comment: CORRECTED | /mm3 | [facility] | | | RESULTS CALLED TO | | | | | ELSA IN ED AT 1705 | | | | | BY LGJCORRECTED ON 05/26 | | | | | AT 1702: PREVIOUSLY | | | | | REPORTED <[id number] | | | + + + + + | TOTAL NUCLEATED | 253Comment: CORRECTED | /mm3 | [facility] | | CELLS | RESULTS [...] CELLS COUNTED | 100Comment: Testing | | [facility] | | | performed at [facility];[address] | | | | | [address];[place] | | | | | [address] | | | + + + + + + + | Specimen | + + | Body Fluid - Lung, | | Right Lower Lobe | + + + + + + + | Performing | Address | City/State/Zipcode | Phone Number | | Organization | | | | + + + + + | [facility] | [address] | [place] [address] | | + + + + + Total Protein, Body Fluid (05/26/2018 2:12 PM) + + + + + | Component | Value | Ref Range | Performed At | + + + + + | FLUID TOTAL PROTEIN | 4.2Comment: This is not | g/dL | [facility] | | | a treasury consultant validated | | LABORATORY | | | sample type for this | | | | | method. No reference | | | | | ranges have been | | | | | established.Testing | | | | | performed at [facility], [address] | | | | | [address], | | | | | [place] [address] | | | + + + + + | FLUID TP SOURCE | PLEURAL FLUIDComment: | | [facility] | | | Testing performed at | | | | | [facility];[address] | | | | | [address];[place] [address] | | | + + + + + + + | Specimen | + + | Body Fluid - Lung, | | Right Lower Lobe | + + + + + + + | Performing | Address | City/State/Zipcode | Phone Number | | Organization | | | | + + + + + | [facility] | [address] | [place] [address] | | + + + + + | [facility] | [address] | [place] [address] | [phone] | | LABORATORY | [address] | | | + + + + + Albumin, Body Fluid (05/26/2018 2:12 PM) + + + + + | Component | Value | Ref Range | Performed At | + + + + + | FLUID ALBUMIN | 2.3Comment: This is not | g/dL | [facility] | | | a treasury consultant validated | | LABORATORY | | | sample type for this | | | | | method. No reference | | | | | ranges have been | | | | | established.Testing | | | | | performed at [facility], [address] | | | | [facility], | | | | | [place] [address] | | | + + + + + + + | Specimen | + + | Body Fluid - Lung, | | Right Lower Lobe | + + + + + + + | Performing | Address | City/State/Zipcode | Phone Number | | Organization | | | | + + + + + | [facility] | [address] | [place] [address] | [phone] | | LABORATORY | [address] | | | + + + + + pH, Body Fluid (05/26/2018 2:12 PM) + + + + + | Component | Value | Ref Range | Performed At | + + + + + | FLUID PH | 7.45Comment: Testing | | [facility] | | | performed at [facility] | | | | | [address];[place], [place] | | | | | [address] | | | + + + + + + + | Specimen | + + | Body Fluid - Lung, | | Right Lower Lobe | + + + + + + + | Performing | Address | City/State/Zipcode | Phone Number | | Organization | | | | + + + + + | [facility] | [address] | [place] [address] | | + + + + + [...] 12.1 | 11.3 - 15.5 g/dL | [facility] | + + + + [...] (H) | 37 - 53 fl | [facility] | + + + + + | PLT | 151 | 150 - 400 K/uL | [facility] | + + + + + | MPV | 10.1 | fl | [facility] | + + + + + [...] 0.06 | 0.00 - 0.50 K/uL | [facility] | + + + + + | BASOPHILS ABS | 0.06 | 0.00 - 0.10 K/uL | [facility] | + + + + + | MORPHOLOGY | 2+Comment: MACRO | | [facility] | + + + + + | Platelet Estimate | ADEQUATE | | [facility] | + + + + + | SODIUM | 140 | 135 - 145 mmol/L | [facility] | + + + + [...] 2.9 | 1.3 - 4.9 g/dL | [facility] | + + + + + | A/G | 1.5 | 1.0 - 2.4 | [facility] | + + + + + | TBIL | 1.1 | 0.1 - 1.5 mg/dL | [facility] | + + + + + | ALK PHOS | 120 (H) | 35 - 115 U/L | [facility] | + + + + + | AST | 82 (H) | 10 - 45 U/L | [facility] | + + + + + | ALT | 64 | 10 - 65 U/L | [facility] | + + + + + | EGFR | 6 (L)Comment: GFR <60: | >60 mL/min/1.73m2 | [facility] | | | CHRONIC KIDNEY [...] (H) | 30 - 240 U/L | [facility] | + + + + + | INR | 1.6Comment: REFERENCE | | [facility] | | | RANGE:0.9 - [...] 29 | 23 - 32 seconds | [facility] | + + + + + | MMB | 7.8 (H) | 0.5 - 3.6 ng/mL | [facility] | + + + + + | CK-MB Index | 2.7Comment: CK INDEX | | [facility] | | | INTERPRETATION: | [...] [place] | | | | | [address] | | | + + + + + + + + + + | Performing | Address | City/State/Zipcode | Phone Number | | Organization | | | | + + + + + | [facility] | [address] | [place] [address] | | + + + + + [...] space: 4th Puncture | | | method: Prmc-lgc-zklcce catheter Ultrasound guidance: yes | | | [...] Performed At | + + + | Aneuyd Hunter MD 05/26/2018 4:23 PM Paracentesis | | | Date/Time: 05/26/2018 1:23 PM Performed by: ANEUDY HUNTER | | | Authorized by: AENUDY HUNTER Consent: Consent | | | obtained: Verbal and written Consent given by: Patient | | | Risks discussed: Bleeding, bowel perforation, infection and | | | pain Ismay protocol: Imaging studies available: yes | | [...] Performed At | + + + | [id number] Criteria Met 2 in 2 | ED [...] Count (12 mo.) Facility Visits Low Acuity [facility] | | | [facility] [address] [facility] 5 0 Total 6 0 | | | Note: Visits indicate total known visits. Medicaid Low Acuity Dx | | | are the number of primary diagnoses on the Medicaid's Low Acuity dx | | | list. Recent Emergency Department Visit Summary Date Facility | | | [facility] State Type Diagnoses or Chief Complaint May 26, 2018 [facility] | | | [facility] [place] Emergency Chest pain, unspecified | | | May 26, 2018 [facility] [place] Emergency Chief | | | Complaint: FLU SYMPTOMS May 25, 2018 [facility] [place] | | | Emergency Chief Complaint: SOB/COUGH May 10, 2018 [facility] . | | | Keven [...] | | | disease Feb 14, 2018 [facility] [place] Emergency | | | Functional dyspepsia Other ascites Epigastric pain | | | Allergy status to narcotic agent status Radiographic dye | | | allergy status Nicotine dependence, unspecified, uncomplicated | | | Other penitentiary (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 Sep 16, 2017 [facility] | | | [place] Emergency Chronic kidney disease, | | | unspecified Dependence on renal dialysis Pain, | | | unspecified Allergy status to narcotic agent status | | | Nicotine dependence, unspecified, uncomplicated Other penitentiary | | | (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 Elevated [...] Portal This patient has registered at the [facility] | | | [facility] Emergency Department For more information visit: | | | [id number] | | | [email or web address] [facility] PLEASE NOTE: 1. Any care recommendations [...] | | completeness of information provided. 2019 [employer] | | | [employer] - [email or web address] | | + + + + + | Procedure Note | + + | Interface, Lab - 05/26/2018 12:00 PM PDT Formatting of this note may be different | | from the original.[id number] [id number] Met 2 in 2Security and | | SafetyNo recent Security Events currently on fileED Care GuidelinesThere are currently | | no ED Care Guidelines for this patient. Please check your facility's medical records | | system.Prescription Drug Report (12 Mo.)PDMP query found no report.E.D. Visit Count (12 | | mo.)Facility Visits Low Acuity [facility] [address] [facility] | | Hospital 5 0 Total 6 0 Note: Visits indicate total known visits. Medicaid Low Acuity Dx | | are the number of primary diagnoses on the Medicaid's Low Acuity dx list. Recent | | Emergency Department Visit SummaryDate Facility City State Type Diagnoses or Chief | | [facility] [place] [place] [facility] Chest pain, | | [...] | | dependence, unspecified, uncomplicated Other manager dental (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 Sep | | 2017 [facility] [place] Emergency Chronic kidney disease, unspecified | | Dependence on renal dialysis Pain, unspecified Allergy status to narcotic agent | | status Nicotine dependence, unspecified, uncomplicated Other manager dental (current) | | 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 Elevated blood-pressure [...] | Anupam patient has registered at the [facility] Emergency | | Department For more information visit: | | [id number] andnbsp | | PLEASE NOTE: 1. Any [...] to the | | limitations of applicable [employer] Policies. 3. You should consult directly with | | the organization that provided a care guideline or other clinical history with any | | questions about additional information or accuracy or completeness of information | | provided.2019 [employer]. - [email or web address] | | Hypertensive heart and chronic kidney disease without heart failure, with stage 5 chroni c kidney disease, or end stage renal disease | | | |Feb 14, 2018 [facility] [place] Emergency | | Functional dyspepsia | | Other ascites | | Epigastric pain | | Allergy status to narcotic agent status | | Radiographic dye allergy status | | Nicotine dependence, unspecified, uncomplicated | | Other penitentiary (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 | | | |Sep 16, 2017 [facility] [place] Emergency | | Chronic [...] providers on record at this time. | |[employer] Portal | |This patient has registered at the [facility] Emergency Department | |For more information visit: [id number] | |andnbsp PLEASE NOTE: | | 1. Any care recommendations and other clinical information are provided as guidelines or for historical purposes only, and providers should exercise their own clinical judgment whe n providing care. | | 2. You may only use this information for purposes of treatment, payment or health care o perations activities, and subject to the limitations of applicable [employer] Policies. | | 3. You should consult directly with the organization that provided a care guideline or o ther clinical history with any questions about additional information or accuracy or complet eness of information provided. | | | |2019 [employer]. - [email or web address] | + + + +---------+ + + [...] +------+-------+ + | MEDICARE | MEDICA | [id number] | | | [address] | | | RE | | | | [place] [address] | | | IP-OP | | | | | + +--------+ +------+-------+ + | MEDICAID | MEDICA | [id number] | | | [address] | | | ID | | | | [place] | | | [place] | | | | [address] | + +--------+ +------+-------+ + + +--------+ [...] | | al/Fam | | 1994 | [phone] [place] | | | [place] | | | [phone] | [phone] | + +--------+ +--------+ + +
--- OUTSIDE RECORDS SUMMARY | ~2018-06-11 | XMS | Clinical Summary ---
Demographics + + + | Address | [address] | | | [place] [address] | + + + | Home Phone [...] | Author | [facility] | | | and [place] | + + + | Organization | [facility] | [...] Overview: Active Kidney Transplant Waiting List at [facility]: | | 03/07/2014 | + + [...] 9. | | Treated by Dr. Joy, director pediatric. | + + + +---+ | [...] declot | | but reclotted). Listed at [facility] for kidney transplant - status | [...] +--------+ +---------+--------+ | MEDICARE | MEDICA | [id number] | 05/05/19 | [phone] | | Medica | | | RE | | 13-Pre | 5 | | re | | | PART A | | sent | | | | | | AND B | | | | | | + +--------+ +--------+ +---------+--------+ | [employer] | MODA | [id number] | | [phone] | | Medica | [...] | | al/Fam | | 1994 | [phone] | [place] | | | [place] | | | 9 (Home) | [address] | + +--------+ +--------+ + + | Cory Weldon | Person | Father | [birth year] | | [address] | | | al/Fam | | 1971 | [phone] | [place] [address] | | | [place] | | | 9 (Home) | | + +--------+ +--------+ + + Advance Directives Patient has advance care planning documents, and code status on file. For more information, please contact:[facility] and [place] [address] + + + + + | Code Status | Date | Date | Comments | | | Activated | Inactivated | | + + + + + | Full Code | 02/24/2014 | 02/24/2014 | | | | 11:17 | 14:29 | | + + + + +
[~2018-06-11 07:54] MED LIST changes: +HYDRALAZINE HCL50 MG PO; +ISOSORBIDE DINI20 MG PO; +METOPROLOL SUCC25 MG PO; +PANTOPRAZOLE SO40 MG PO
--- OUTSIDE RECORDS SUMMARY | 2018-06-11 07:56 | XMS ---
PreManage Notification: CONOR LOUISE Security Feather Edger Events No recent Security Events currently on file CRITERIA MET - 6 ED Visits in 6 Months - [facility] - Has Care Guidelines - [facility] - 2 Visits in 30 Days CARE PROVIDERS TIEN NICHOLSON Hospitalist 05/28/2018-Current PHONE: Unknown Karena has no Care Guidelines for this patient. Care History Medical/Surgical 05/28/2018 [facility] - Patient is currently established with [facility]. If patient is seen in the ED during business hours. Please contact CHWs at [facility]. Care Recommendation: This patient has had 5 [...] care. E.D. V[facility] (12 MO.) [facility] TOTAL 8 NOTE: Visits indicate total known visits. ED/UCC VISIT TRACKING (12 MO.) 06/11/2018 07:55 [facility] [place] TYPE: Emergency COMPLAINT: - DIFFICULTY BREATHING,VOMITING 06/04/2018 06:07 [facility] TYPE: Emergency COMPLAINT: - SOB DIAGNOSES: - Shortness of breath - Allergy status to other drugs, medicaments and biological substances status - Radiographic dye allergy status - Other mcc (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 - Dyspnea, unspecified - Allergy status to narcotic agent status - Respiratory syncytial virus as the cause of diseases classified elsewhere 05/26/2018 11:57 [facility] TYPE: Emergency DIAGNOSES: - Acute respiratory distress - Chest pain, unspecified - Other ascites - Pleural effusion, not elsewhere classified 05/26/2018 07:23 [facility] TYPE: Emergency COMPLAINT: - FLU SYMPTOMS DIAGNOSES: - Allergy status to other drugs, medicaments and biological substances status - Other manager terminal (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 - Radiographic dye allergy status - Dependence on renal dialysis - Pleural effusion, not elsewhere classified - Allergy status to narcotic agent status - Shortness of breath 05/25/2018 11:53 [facility] TYPE: Emergency COMPLAINT: - SOB/COUGH DIAGNOSES: - Dependence on renal dialysis - Shortness of breath - Allergy status to narcotic agent status - Pneumonia, unspecified organism - Other manager terminal (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 - Radiographic dye allergy status - Pleural effusion, not elsewhere classified - Allergy status to other drugs, medicaments and biological substances status 05/10/2018 07:20 [facility] [place] TYPE: Emergency COMPLAINT: - PREVIOUS BLOODY NOSE DIAGNOSES: - Epistaxis - Other mcc (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 - End stage renal [...] unspecified, uncomplicated - Epigastric pain - Other mcc (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 09/16/2017 23:06 [facility] [place] TYPE: Emergency COMPLAINT: - BP PROBLEM,RENAL FAILURE DIAGNOSES: - Chronic kidney disease, unspecified - Dependence on renal dialysis - Pain, unspecified - Allergy status to narcotic agent status - Nicotine dependence, unspecified, uncomplicated - Other manager terminal (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 - Elevated blood-pressure reading, without diagnosis of hypertension - Patient's noncompliance with renal dialysis - Hypertensive chronic kidney disease with stage 1 through stage 4 chronic kidney disease, or unspecified chronic kidney disease - Radiographic dye allergy status INPATIENT VISIT TRACKING (12 MO.) 05/26/2018 11:57 [facility] DIAGNOSES: - Acute respiratory [...] specified personal risk factors, not elsewhere classified [id number]
--- NOTE | 2018-06-12 13:57 | EKG ---
[facility] [address] [place] [address] Signed Sinus tachycardia Possible Left atrial enlargement Nonspecific ST abnormality Abnormal ECG When compared with ECG of 04-JUN-2018 07:52, Nonspecific T wave abnormality no longer evident in Lateral leads Confirmed by JACKIE DOLAN MD ([id number]) on 06/12/2018 1:56:55 PM Electronically Signed By: JACKIE DOLAN MD 06/12/18 1357 PATIENT NAME: CONOR LOUISE Electrocardiogram DATE OF : [birth year] PHYSICIAN: JACKIE DOLAN MD REPORT #: [id number] REPORT IS CONFIDENTIAL AND NOT TO BE RELEASED WITHOUT AUTHORIZATION
[2018-06-12] MEDS ORDERED: ONDANSETRON ODT8 MG PO (18:51)
[2018-06-12] MEDS ORDERED: NORCO 5-325 TA1 EACH PO (18:51)
== END 2018-06-11 12:55 | disposition home or self-care (01) ==
LOC: ED 07:54
DX: J81.1 Chronic pulmonary edema (principal); Z87.891 Personal history of nicotine dependence; Z91.041 Radiographic dye allergy status; Z79.891 Long term (current) use of opiate analgesic; Z79.899 Other long term (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
CPT/HCPCS: 80053; 85025; 93005; 93010; 94640; 96374; 96375; 99285-25; J0360; J1170; J2405; J2550

== ENCOUNTER 2018-06-12 13:45 | Emergency (ER) | payer MEDICARE, OTHER ==
[~2018-06-12] VITALS: Ht 170.2 cm; Wt 68.3 kg
--- OUTSIDE RECORDS SUMMARY | ~2018-06-12 | XMS | Encounter Summary ---
Demographics + + + | Address | [address] | | | [place] [address] | + + + | Home Phone | | + + + | Preferred Language | Unknown | + + + | Marital Status | Single | + + + | Zoroastrianism Affiliation | Unknown | + + + | Race | Unknown | + + + | Ethnic Group | Unknown | + + + Author + + + | Author | [facility] | | | and [place]ana | + + + | Organization | [facility] | | | and [place] | + + + | Address | Unknown | + + + | Phone | Unavailable | + + + Support + + +---------+ + | Name | Relationship | Address | Phone | + + +---------+ + | Cory Weldon | ECON | Unknown | | + + +---------+ + | Deidra Weldon | ECON | Unknown | | + + +---------+ + | Thania Mallory | ECON | Unknown | | + + +---------+ + Care Team Providers + +------+ + | Care Systems Administration Analyst Name | Role | Phone | + +------+ + | Jonathan Alonso MD | PCP | | + +------+ + Reason for Visit + + + | Reason | Comments | + + + | Kidney Transplant | left voice mail for pt to return call to complete intake quest. | | Pre-evaluation | | + + + Encounter Details +--------+ + + + + | Date | Type | Department | Care Team | Description | +--------+ + + + + | 06/12/ | Telephone | [facility] | Meño Tran | Kidney Transplant | | 2019 | | [facility] | [facility] [address] | Pre-evaluation (left | | | | KIDNEY TRANSPLANT | [place] [address], | voice mail for pt | | | | [address] [place] | [place] [address] | to return call to | | | | [address] [place] | [phone] | complete intake | | | | [address] | | quest.) | | | | [phone] | | | +--------+ + + + + Social History + +-------+ +--------+------+ | Tobacco Use | Types | Packs/Day | Years | Date | | | | | Used | | + +-------+ +--------+------+ | Never Smoker | | | | | + +-------+ +--------+------+ + +---+---+---+ | Smokeless Tobacco: | | | | | Never Used | | | | + +---+---+---+ + + +---------+ + | Alcohol Use | Drinks/We | oz/Week | Comments | | | ek | | | + + +---------+ + | No [...] as of this encounter Plan of Treatment Not on filedocumented as of this encounter Visit Diagnoses Not on filedocumented in this encounter"
--- OUTSIDE RECORDS SUMMARY | ~2018-06-12 | XMS | Clinical Summary ---
Demographics + + + | Address | [address] | | | [place] [address] | + + + | Home Phone | | + + + | Preferred Language | Unknown | + + + | Marital Status | Single | + + + | Moravian Affiliation | Unknown | + + + | Race | Unknown | + + + | Ethnic Group | Unknown | + + + Author + + + | Author | [facility] | | | and [place]ana | + + + | Organization | [facility] | | | and [place]ana | + [...] Team Providers + +------+ + | Care Carpentry Specialist Name | Role | Phone | [...] | | | | | renal disease) ([facility]) | protocol | | | | | [...] | | Treated by Dr. Joy, pediatric physical therapy assistant. | + + + +---+ | [...] + + | 06/12/ | Telephone | | Meño Tran | Kidney Transplant | | 2018 | | | MD Linda | Pre-evaluation (left | | | | | | voice mail for pt | | | | | | to return call to | | | | | | complete intake | | | | | | quest.) | +--------+ + + + + | 06/12/ | Telephone | | Meño Tran | | | 2018 | | | MD Linda | | +--------+ + + + + | 06/11/ | Abstract | | Meño Tran | | | 2018 | | | MD Linda | | +--------+ + + + + [...] | | TRIVALENT(PED/ADOL/A | | | | DULT) PSKT | | | + + + [...] +--------+ +---------+--------+ | MEDICARE | MEDICA | [id number] | 05/05/19 | [phone] | | Medica | | | RE | | 13-Pre | 5 | | re | | | PART A | | sent | | | | | | AND B | | | | | | + +--------+ +--------+ +---------+--------+ | [employer] | MODA | [id number] | | [phone] | | Medica | [...] | Self | [birth year] | | [address] | | | al/Fam | | 1994 | [phone] | [place], [place] | | | [place] | | | 2 (Home) | [address] | + +--------+ +--------+ + + | Cory Weldon | Josh | Father | [birth year] | | [address] | | | al/Fam | | 1971 | [phone] | [place] [address] | | | [place] | | | 9 (Home) | | + +--------+ +--------+ + + Advance Directives Patient has advance care planning documents, and code status on file. For more information, please contact:[facility] [place] [address] + + + + + | Code Status | Date | Date | Comments | | | Activated | Inactivated | | + + + + + | Full Code | 02/24/2014 | 02/24/2014 | | | | 11:17 | 14:29 | | + + + + +
--- OUTSIDE RECORDS SUMMARY | ~2018-06-12 | XMS | Encounter Summary ---
Demographics + + + | Address | [address] | | | [place] [address] | + + + | Home Phone [...] | Author | [facility] | | | and [place] | + + + | Organization | [facility] | | | and Josephana [...] + +------+ + | Care Manager Of Radiology Name | Role | Phone | + [...] | | KIDNEY TRANSPLANT | [place] [address] [place], | | | | | [address] [place] | [place] [address] | | | | | [address] [place] [place] | [phone] | | | | | [address] | | | | | | [phone] | | | +--------+ + + + [...]
--- OUTSIDE RECORDS SUMMARY | ~2018-06-12 | XMS | Clinical Summary ---
Demographics + + + | Address | [address] | | | [place] [address] | + + + | Home Phone [...] Author | [facility] | | | and [place] | + + + | Organization | [facility] | | | [...] Team Providers + +------+ + | Care Bacon De Rinder Name | Role | Phone | + [...] | | | | | renal disease) ([facility]) | protocol | | | | | [...] Overview: Active Kidney Transplant Waiting List at [facility]: | | 03/07/2014 | + [...] | | Treated by Dr. Joy, pediatric hospitalist. | + + + +---+ | ESRD [...] declot | | but reclotted). Listed at [facility] for kidney transplant - status [...] +--------+ +---------+--------+ | MEDICARE | MEDICA | [id number] | 05/05/19 | [phone] | | Medica | | | RE | | 13-Pre | 5 | | re | | | PART A | | sent | | | | | | AND B | | | | | | + +--------+ +--------+ +---------+--------+ | [employer] | MODA | [id number] | | [phone] | | Medica | [...] [place] | | | 2 (Home) | [address] | + +--------+ +--------+ + + | Cory Weldon | Josh | Father | [birth year] | | [address] | | | al/Fam | | 1971 | [phone] | [place] [address] | | | k[place] | | | 9 (Home) | | + +--------+ +--------+ + + Advance Directives Patient has advance care planning documents, and code status on file. For more information, please contact:[facility] [place] [address] + + + + + | Code Status | Date | Date | Comments | | | Activated | Inactivated | | + + + + + | Full Code | 02/24/2014 | 02/24/2014 | | | | 11:17 | 14:29 | | + + + + +
--- OUTSIDE RECORDS SUMMARY | ~2018-06-12 | XMS | Encounter Summary ---
Demographics + + + | Address | [address] | | | [place] [address] | + + + | Home Phone [...] | Author | [facility] | | | and [place]ana | + + + | Organization | [facility] [...] Team Providers + +------+ + | Care Tank Officer Name | Role | Phone | [...] | stage renal | [address] | [address] [place] [address] | | | | | disease) | Shun Griffin | [place] | | | | | (HCC) | [address] | [address] [facility] | | | | | Anemia in | [place], [place] | [place], [place] | | | | | ESRD | [address] | [address] Phone: | | | | | (end-stage | Phone: | [phone] | | | | | renal | [phone] | Fax: | | | | | disease) | Fax: | [phone] | | | | | ([facility]) | [phone] | | | | | | Procedures | | | | | | | [place] ESRD | | | | | | [...] | M, DO [address] | renal disease) (HCC) | | | | [address] | [place], [place] [address] | (Primary Dx) | | | | [place] | [place] | | | | | [address] | [address] | | | | | [phone] | | | +--------+ + + + [...] Will recheck her in 2 weeks. : Mendon Fina Alonso MD, PhD documented in this e ncounter Plan of Treatment Not on filedocumented as of this encounter Visit Diagnoses + + | Diagnosis | + + | ESRD (end stage renal disease) ([facility]) - Primary End stage renal disease | + + documented in this encounter"
--- OUTSIDE RECORDS SUMMARY | ~2018-06-12 | XMS | Encounter Summary ---
Demographics + + + | Address | [address] | | | [place] [address] | + + + | Home Phone [...] + + + | Author | [employer] | + + + | Organization | [facility] [employer] | + + + | Address [...] | | | | | [place] [address] | | + + + + + | Wilson De Guzman | ECON | Unknown | | + + + + + Care Team Providers + +------+ + | Care J2Ee Programmer Name | Role | Phone | [...] | | Internal | Diagnoses | | [facility] 4th | | | | Medicine | Acute | | [address] [place] | | | | | respiratory | | [address] | | | | | distress | | [address] | | | | | Other | | [place], [place] | | | | | ascites | | [address] Phone: | | | | | Pleural | | [phone] | | | | | effusion on | | Fax: | | | | | right Chest | | [phone] | | | | | pain, | | | | | | | unspecified | | | | | | | type | | | +--------+--------+ + + + + Encounter Details +--------+ + + + + | Date | Type | Department | Care Team | Description | +--------+ + + + + | 05/26/ | Hospital | [facility] | Aneudy Hunter, | Pleural effusion on | | 2019 - | Encounter | [facility] 4th | [address] | right (Primary Dx); | | | | [facility] | [place] [address] | Chest pain, | | 06/01/ | | [address] | [phone] [place], | unspecified type; | | 2019 | | [place] [address] | MD [place] [address] | Other ascites; Acute | | | | [phone] | [address] | respiratory | | | | | [place] [address] | distress; End-stage | | | | | [phone] | renal disease on | | | | | | hemodialysis ([facility]); | | | | | Anthony Belcher MD | Hyperkalemia; | | | | | [address] | Hyperphosphatemia; | | | | | [place] [address] | At high risk for | | | | | [phone] | electrolyte | | | | | | imbalance; Acute | | | | | Darell Kowalski MD | systolic CHF | | | | | [address] | (congestive heart | | | | | [place] [address] | failure) ([facility]); | | | | | [phone] | Hypoalbuminemia; | | | | | | Anemia in ESRD | | | | | | (end-stage renal | | | | | | disease) ([facility]); ESRD | | | | | [...] note may be different from pierre coleman. [facility] Service: Hospitalist Physician Discharge Summary Pt: Dara [...] 17. The mitral valve is normal. 18. Qjdl-sf-dmqug ate eccentric mitral regurgitation is present. 19. [...] anemia of chronic disease who went to [facility] with increasing shortness of breath found to have right pleural effusion who was transfer red to [facility] underwent right-sided diagnostic and therapeutic thoracocentesis with removal of 1 L of fluid likely transudative, Gram stain and cultures negative so far and mo so had high volume paracentesis 4 L [...] hyperkalemia with that. I discussed with the upholstery sewer as Follow Up Labs/Imaging and Monitoring: Cardiology Discharge [...] Not suicida l LABS: Recent Labs Lab 06/01/18 0443 05/31/18 0504 05/30/18 0418 WBC 5.40 4.57 4.80 [...] Component Value Units Date/Time Culture, Body Fluid [[id number]] Collected: 05/26/18 1412 Specimen: Body Fluid from Pleural Fluid Updated: 05/30/18 0733 Specimen Description PLEURAL FLUID GRAM STAIN WBC'S SEEN GRAM STAIN NO ORGANISMS SEEN GRAM STAIN STAIN PERFORMED ON CYTOSPIN CULTURE NO GROWTH 4 DAYS Culture, Body Fluid [[id number]] Collected: 05/26/18 1513 Specimen: Other from Ascites Fluid Updated: 05/30/18 0732 Specimen Description ASCITES FLUID GRAM STAIN STAIN PERFORMED ON CYTOSPIN GRAM STAIN WBC'S SEEN GRAM STAIN NO EPITHELIAL CELLS SEEN GRAM STAIN NO ORGANISMS SEEN CULTURE NO GROWTH 4 DAYS Gram stain [[id number]] Collected: 05/29/18 1256 Specimen: Sputum from Thoracic Fluid Updated: 05/29/18 2339 Specimen Description THORACIC FLUID CULTURE 1+ WBC'S SEEN NO ORGANISMS SEEN Lactate dehydrogenase, body fluid [[id number]] Collected: 05/29/18 1256 Specimen: Body Fluid from Pleural, Right Updated: 05/29/18 1619 FLUID LDH 151 U/L Cholesterol, body fluid [[id number]] Collected: 05/29/18 1256 Specimen: Body Fluid from [...] medications if needed. Follow-Up: Tien Nicholson MD [address], [address] [place] [address] In 1 week Carolina Mahmood DO [address] [place] [id number] In 1 week Daniela Ibarra MD [address] [place] [id number] In 1 week Discharge took more than 35 minutes, to include final examination, discussion of admission, and preparation of prescriptions, instructions for ongoing care, follow up and dictation of summary. Signed: DARELL KOWALSKI MD 06/01/2018 9:59 AM Dictation software, [employer] used which may contain error for similar [...] of this encounter Progress Notes Tino Paiz, CHEMICAL RESEARCH TECHNICIAN - 06/01/2018 3:06 PM PDTFormatting of this note may be different fro m the original. [facility] Department of Respiratory Jail Oxygen Evaluation (Evaluation [...] note may be different from the original. [facility] Service: NEPHROLOGY Dialysis/ Progress Note Dara Louise 23 y.o. [id number] [id number] female [facility] Day: LOS: 6 days Patient with [...] FISTULA; Surgeon: Rik Simon MD; Location: [facility] MAIN OR; Service: Vascula r; Laterality: Left; cephalic AV FISTULA REPAIR Left 03/07/2014 Procedure: AV FISTULA - GRAFT REPAIR/REVISION; Surgeon: Rik Simon MD; Location: [facility] IN OR; Service: Vascular; Laterality: Left; DECLOT GRAFT Left 03/07/2014 Procedure: GRAFT - DECLOT; Surgeon: Rik Simon MD; Location: [facility] MAIN OR; Service: Vas cular; Laterality: Left; DIALYSIS FISTULA CREATION N/A 04/08/2014 Procedure: DIALYSIS CATHETER - INSERTION; Surgeon: Rik Simon MD; Location: [facility] OR ; Service: Vascular; Laterality: N/A; tunneled catheter LAPAROSCOPIC PERITONEAL DIALYSIS CATHETER INSERTION x2 LAPAROSCOPIC PERITONEAL DIALYSIS CATHETER INSERTION Right 07/2013 current dialysis access MWF dialysis RENAL BIOPSY SUPERFICIALIZATION OF AV FISTULA Left 06/24/2014 Procedure: AV FISTULA - SUPERFICIALIZATION; Surgeon: Rik Simon MD; Location: [facility] MAIN OR; Service: Vascular; Laterality: [...] Currie Chet Sign Date/Time: 05/29 2:32 PM X-ray Chest 1 View Result Date: 05/26/2018 This is a non-reportable procedure without a radiologist report and is used for image [employer] only Us Abdomen Limited Result Date: 05/28/2018 [...] 17. The mitral valve is normal. 18. Ckrz-aw-kmjpahqp eccentric mitral regurgitation i s present. 19. [...] mitral valve is normal. Mitral Kait ve: Iiti-fb-yogozsla eccentric mitral regurgitation is present. Tricuspid Valve: [...] maxP.08 mmHg TR Vmax: 2.7 4 m/s Jowl Trimmer: MOO Authenticated by: Robel Yusuf MD Report [...] 17. The mitral valve is normal. 18. Dnty-tu-yueuj ate eccentric mitral regurgitation is present. 19. [...] earlier and charting completed later Dictation software, [employer] used which may contain error for similar [...] put on "an antibiotic" for pneumonia at [facility] ED. Was throwing up & could [...] the prelim submitted orders, MWF No acute HARNESS PREPARER indication ESTEFANY as indicated with HD Protein [...] this note may be different from pierre quarles original. [facility] Service: Hospitalist Progress Note Pt: Dara Louise AGE/SEX: 23 y.o. female ROOM: 4441/4441-1 : 1995 PCP: TIEN NICHOLSON ADMIT DATE: 05/26/2018 TODAY'S DATE: 05/31/2018 Hospital Day/Hospital Course: LOS: [address] Belcher 23-year-old female with past medical history of end-stage renal disease on hemodialysis Mon day Monday, hypertension, anemia of chronic disease who went to [facility] with increasing shortness of breath found to have right pleural effusion who was transfer red to [facility] underwent right-sided diagnostic and therapeutic thoracocentesis [...] Component Value Units Date/Time Culture, Body Fluid [[id number]] Collected: 05/26/18 1412 Specimen: Body Fluid from Pleural Fluid Updated: 05/30/18 0733 Specimen Description PLEURAL FLUID GRAM STAIN WBC'S SEEN GRAM STAIN NO ORGANISMS SEEN GRAM STAIN STAIN PERFORMED ON CYTOSPIN CULTURE NO GROWTH 4 DAYS Culture, Body Fluid [[id number]] Collected: 05/26/18 1513 Specimen: Other from Ascites Fluid Updated: 05/30/18 0732 Specimen Description ASCITES FLUID GRAM STAIN STAIN PERFORMED ON CYTOSPIN GRAM STAIN WBC'S SEEN GRAM STAIN NO EPITHELIAL CELLS SEEN GRAM STAIN NO ORGANISMS SEEN CULTURE NO GROWTH 4 DAYS Gram stain [[id number]] Collected: 05/29/18 1256 Specimen: Sputum from Thoracic Fluid Updated: 05/29/18 2339 Specimen Description THORACIC FLUID CULTURE 1+ WBC'S SEEN NO ORGANISMS SEEN Lactate dehydrogenase, body fluid [[id number]] Collected: 05/29/18 1256 Specimen: Body Fluid from Pleural, Right Updated: 05/29/18 1619 FLUID LDH 151 U/L Cholesterol, body fluid [[id number]] Collected: 05/29/18 1256 Specimen: Body Fluid from Pleural, Right Updated: 05/29/18 1619 FLUID CHOLESTEROL 56 mg/dL Sputum culture [[id number]] Collected: 05/27/182014 Specimen: Sputum from Sputum Updated: [...] 17. The mitral valve is normal. 18. Ytmp-kv-ftbvy ate eccentric mitral regurgitation is present. 19. [...] anemia of chronic disease who went to [facility] with increasing shortness of breath due to acute congestive heart failure Acute systolic congestive heart failure with Pleural Effusion: Admitted with acute systolic congestive heart failure with bilateral pleural effusion stat us post thoracentesis 2. Her breathing has improved. She is talking to me appropriately. N ot in any kind of distress. career services manager to initiate the discharge plan. Possible dischar [...] MD, FACP 05/31/2018 9:42 AM Dictation software, [employer] used which may contain error for similar sounding words even af ter review. Personal communication requested for any clarification. Portions of this chart may have been copied from previous notes for continuity of care purp Darell Segundo MD - 05/30/2018 9:09 AM PDTFormatting of this note may be different from pierre coleman. [facility] Service: Hospitalist Progress Note Pt: Dara Louise AGE/SEX: 23 y.o. female ROOM: [facility]/4441-1 : 1995 PCP: TIEN NICHOLSON ADMIT DATE: 05/26/2018 TODAY'S DATE: 05/30/2018 Hospital Day/Hospital Course: LOS: [address] Belcher 23-year-old female with past medical history of end-stage renal disease on hemodialysis Mon, hypertension, anemia of chronic disease who went to [facility] with increasing shortness of breath found to have right pleural effusion who was transfer red to [facility] underwent right-sided diagnostic and therapeutic thoracocentesis [...] - 05/30/18 0845 121/67 - - 79 - 05/30/18 0830 128/73 - - 81 [...] l LABS: Recent Labs Lab 05/30/1841705/29/18 04505/28/18 0923 WBC 4.80 5.44 5.10 HGB 10.7* [...] Component Value Units Date/Time Culture, Body Fluid [[id number]] Collected: 05/26/18 1412 Specimen: Body Fluid from Pleural Fluid Updated: 05/30/18 0733 Specimen Description PLEURAL FLUID GRAM STAIN WBC'S SEEN GRAM STAIN NO ORGANISMS SEEN GRAM STAIN STAIN PERFORMED ON CYTOSPIN CULTURE NO GROWTH 4 DAYS Culture, Body Fluid [[id number]] Collected: 05/26/18 1513 Specimen: Other from Ascites Fluid Updated: 05/30/18 0732 Specimen Description ASCITES FLUID GRAM STAIN STAIN PERFORMED ON CYTOSPIN GRAM STAIN WBC'S SEEN GRAM STAIN NO EPITHELIAL CELLS SEEN GRAM STAIN NO ORGANISMS SEEN CULTURE NO GROWTH 4 DAYS Gram stain [[id number]] Collected: 05/29/18 1256 Specimen: Sputum from Thoracic Fluid Updated: 05/29/18 2339 Specimen Description THORACIC FLUID CULTURE 1+ WBC'S SEEN NO ORGANISMS SEEN Lactate dehydrogenase, body fluid [[id number]] Collected: 05/29/18 1256 Specimen: Body Fluid from Pleural, Right Updated: 05/29/18 1619 FLUID LDH 151 U/L Cholesterol, body fluid [[id number]] Collected: 05/29/18 1256 Specimen: Body Fluid from Pleural, Right Updated: 05/29/18 1619 FLUID CHOLESTEROL 56 mg/dL Sputum culture [[id number]] Collected: 05/27/182014 Specimen: Sputum from Sputum Updated: [...] 17. The mitral valve is normal. 18. Ukjf-ni-iqpag ate eccentric mitral regurgitation is present. 19. [...] anemia of chronic disease who went to [facility] with increasing shortness of breath due [...] MD, FACP 05/30/2018 9:10 AM Dictation software, [employer] used which may contain error for similar sounding words even af ter review. Personal communication requested for any clarification. Portions of this chart may have been copied from previous notes for continuity of care purp Carolina [place]maar[place], - 05/29/2018 7:56 PM PDTFormatting of this note may be different from e original. [facility] Service: Cardiology Progress Note Hospital Day: LOS: [...] Hospitalist Progress Note Dara Louise 23 y.o. [id number] 4441/[id number] female [facility] Day: LOS: 3 days Patient Summary: 23-year-old female with past medical history of end-stage renal dis ease on hemodialysis Monday, hypertension, anemia of chronic disease who we nt to [facility] with increasing shortness of breath found to have right pleural e ffusion who was transferred to [facility] underwent right-sided diagnostic and therapeu tic [...] C) (05/29 1313) BP: (111-137)/(59-85) 133/84 (05/29 1313) Heart Rate: [66-88] 75 (05/29 1238) Resp: [17-20] 20 (05/29 1313) SpO2: [91 %-100 %] 100 % (05/29 [...] Value Units Date/Time Lactate dehydrogenase, body fluid [[id number]] Collected: 05/29/18 125 Specimen: Body Fluid from Pleural, Right Updated: 05/29/181314 Cholesterol, body fluid [[id number]] Collected: 05/29/18 125 Specimen: Body Fluid from Pleural, Right Updated: 05/29/181314 Gram stain [[id number]] Collected: 05/29/18 125 Specimen: Sputum from OTHR-w source desc (F6) Updated: 05/29/18 1309 Sputum culture [[id number]] Collected: 05/27/182014 Specimen: Sputum from Sputum Updated: 05/29/18 0947 Specimen Description SPUTUM GRAM STAIN LESS THAN 10 WBCS/LPF GRAM STAIN LESS THAN 10 SEC/LPF GRAM STAIN NO ORGANISMS SEEN CULTURE 1+ NORMAL UPPER RESPIRATORY ALESSANDRO HIV 1/2 Ab reflex [[id number]] Collected: 05/28/18 1236 Specimen: Blood Updated: 05/29/1842 HIV1/HIV2 NON REACTIVE Protime-INR [[id number]] Collected: 05/29/18851 Specimen: Blood Updated: 05/29/18939 INR 1.5 APTT [[id number]] Collected: 05/29/18851 Specimen: Blood Updated: 05/29/18939 APTT 29 seconds Culture, Body Fluid [[id number]] Collected: 05/26/18 1513 Specimen: Other from Ascites Fluid Updated: 05/29/18919 Specimen Description ASCITES FLUID GRAM STAIN STAIN PERFORMED ON CYTOSPIN GRAM STAIN WBC'S SEEN GRAM STAIN NO EPITHELIAL CELLS SEEN GRAM STAIN NO ORGANISMS SEEN CULTURE NO GROWTH 3 DAYS Culture, Body Fluid [[id number]] Collected: 05/26/18 1412 Specimen: Body Fluid from Pleural Fluid Updated: 05/29/1818 Specimen Description PLEURAL FLUID CULTURE NO GROWTH 3 DAYS Comprehensive metabolic panel [[id number]] (Abnormal) Collected: 05/29/18456 Specimen: Blood Updated: 05/29/1816 SODIUM 139 mmol/L POTASSIUM 4.2 mmol/L CHLORIDE [...] mL/min/1.73m2 CBC W/Auto Diff (Reflex to Manual) [[id number]] (Abnormal) Collected: 05/29/18456 Specimen: Blood Updated: 05/29/18 0613 WBC 5.44 K/uL RBC 3.30 (L) M/uL [...] 0.05 K/uL MORPHOLOGY 2+ hCG, serum, qualitative [[id number]] Collected: 05/28/18922 Specimen: Blood Updated: 05/28/18 1950 TEST,SERUM NEGATIVE C-reactive protein [[id number]] (Abnormal) Collected: 05/28/18922 Specimen: Blood Updated: 05/28/18 1941 CRP 5.1 (H) mg/dL Sedimentation rate, automated [[id number]] Collected: 05/28/18922 Specimen: Blood Updated: 05/28/18 1734 ESR 2 mm/Hr Hepatitis panel,acute [[id number]] Collected: 05/28/18 1236 Specimen: Blood Updated: 05/28/18 1650 HAV AB,IGM NON REACTIVE HEP B SURFACE AG NON REACTIVE ANTI HEP B CORE,IGM NON REACTIVE HEPATITIS C NON REACTIVE HEPATITIS INTERP No serologic evidence of HAV, HBV, or HCV infection. Troponin I [[id number]] Collected: 05/28/18922 Specimen: Blood Updated: 05/28/18 143 TROPONIN I 0.034 ng/mL Troponin I [[id number]] Collected: 05/28/18 1359 Specimen: Blood Updated: 05/28/18 1437 TROPONIN I 0.037 ng/mL Renal function panel [[id number]] (Abnormal) Collected: 05/28/18 1209 Specimen: Blood from Blood Updated: 05/28/18 1302 SODIUM 141 mmol/L POTASSIUM 4.3 mmol/L CHLORIDE 101 mmol/L CO2 29 mmol/L ANION GAP AGAP 15 mmol/L GLUCOSE 78 mg/dL BUN 43 (H) mg/dL CREATININE 7.97 (H) mg/dL CALCIUM 9.1 mg/dL Albumin 3.6 g/dL PHOSPHORUS 6.3 (H) mg/dL EGFR 6 (L) mL/min/1.73m2 CBC W/Auto Diff (Reflex to Manual) [[id number]] (Abnormal) Collected: 05/28/18922 Specimen: Blood Updated: 05/28/18 [...] 0.05 K/uL MORPHOLOGY 1+ Comprehensive metabolic panel [[id number]] (Abnormal) Collected: 05/28/18922 Specimen: Blood Updated: 05/28/181209 [...] (H) U/L EGFR 6 (L) mL/min/1.73m2 TSH [[id number]] Collected: 05/28/18922 Specimen: Blood Updated: 05/28/18 1210 TSH 1.270 uIU/mL Pathologist consult [[id number]] Collected: 05/26/18 1412 Updated: 05/28/18 1113 Pathologist Consult -- Hepatitis panel, chronic [[id number]] (Abnormal) Collected: 05/27/181757 Updated: 05/27/182030 Hep A Total Ab REACTIVE (A) HEP B SURFACE AG NON REACTIVE HEP B CORE AB,TOTAL NON REACTIVE HEP B SURFACE ANTIBODY 3.27 (H) IV HEPATITIS C NON REACTIVE HEPATITIS INTERP Current or past HAV infection. Past HBV infection or vaccination. No ser ologic evidence of HCV infection. CBC w/auto diff (reflex to manual) [[id number]] (Abnormal) Collected: 05/27/18424 Specimen: Blood Updated: 05/27/18710 [...] K/uL MORPHOLOGY 2+ Platelet Estimate DECREASED Phosphorus [[id number]] (Abnormal) Collected: 05/27/18424 Specimen: Blood Updated: 05/27/18628 PHOSPHORUS 8.0 (H) mg/dL Basic Metabolic Panel [[id number]] (Abnormal) Collected: 05/27/18424 Specimen: Blood Updated: 05/27/18628 SODIUM 135 mmol/L POTASSIUM 5.9 (H) mmol/L CHLORIDE 96 (L) mmol/L CO2 25 mmol/L ANION GAP AGAP 20 mmol/L GLUCOSE 74 mg/dL BUN 51 (H) mg/dL CREATININE 9.2 (H) mg/dL BUN/CREAT 6 CALCIUM 9.4 mg/dL EGFR 5 (L) mL/min/1.73m2 Magnesium [[id number]] (Abnormal) Collected: 05/27/18424 Specimen: Blood Updated: 05/27/18628 MAGNESIUM 2.7 (H) mg/dL Brain natriuretic peptide [[id number]] (Abnormal) Collected: 05/27/18424 Specimen: Blood Updated: 05/27/18 0546 BRAIN NATRIURETIC PEPTIDE 1,153.92 (H) pg/mL Respiratory Filmarray [[id number]] (Abnormal) Collected: 05/26/181805 Specimen: Nasopharynx/Oropharynx Updated: 05/26/182141 [...] performed by Molecular Methodology MRSA by PCR [[id number]] Collected: 05/26/181805 Specimen: Nasopharyngeal from Nares(Nose) Updated: 05/26/182025 SOURCE NARES(NOSE) MRSA PCR NEGATIVE Procalcitonin [[id number]] (Abnormal) Collected: 05/26/181726 Updated: 05/26/18 1839 PROCALCITONIN 0.76 (H) ng/mL Albumin, Body Fluid [[id number]] Collected: 05/26/18 141 Specimen: Body Fluid from Lung, Right Lower Lobe Updated: 05/26/18 172 FLUID ALBUMIN 2.3 g/dL Total Protein, Body Fluid [[id number]] Collected: 05/26/18 141 Specimen: Body Fluid from Lung, Right Lower Lobe Updated: 05/26/18 172 FLUID TOTAL PROTEIN 4.2 g/dL FLUID TP SOURCE PLEURAL FLUID Cell count, Body Fluid [[id number]] Collected: 05/26/18 141 Specimen: Body Fluid from Lung, Right Lower Lobe Updated: 05/26/18 170 FLUID TYPE PLEURAL FLUID COLOR SAMMIE APPEARANCE CLOUDY RBC'S 3,000 /mm3 TOTAL NUCLEATED CELLS 253 /mm3 NEUTROPHILS 22 % LYMPHOCYTES 8 % MONOCYTES/MACROPHAGES 65 % Mesothelial Cells 5 % CELLS COUNTED 100 pH, Body Fluid [[id number]] Collected: 05/26/18 141 Specimen: Body Fluid from [...] radiologist report and is used for image [employer] only Us Abdomen Limited Result Date: 05/28/2018 [...] LOUISE Date of : 1995 Performing P azarsician: Robel Yusuf MD ____ INDICATIONS [...] 17. The mitral valve is normal. 18. Madd-ac-tildgycp eccentric mitral regurgitation i s present. 19. [...] mitral valve is normal. Mitral Kait ve: Eboz-ud-uwrehjrx eccentric mitral regurgitation is present. Tricuspid Valve: [...] maxP.08 mmHg TR Vmax: 2.7 4 m/s Jowl Trimmer: MOO Authenticated by: Robel Yusuf MD Report [...] 17. The mitral valve is normal. 18. Horq-kx-xnxth ate eccentric mitral regurgitation is present. 19. [...] put on "an antibiotic" for pneumonia at [facility] ED. Was throwing up & could [...] the prelim submitted orders, MWF No acute HARNESS PREPARER indication ESTEFANY as indicated with HD Protein [...] Hospitalist Progress Note Dara Louise 23 y.o. [id number] female [facility] Day: LOS: 2 days Patient Summary: 23-year-old female with past medical history of end-stage renal dis ease on hemodialysis Monday, hypertension, anemia of chronic disease who we nt to [facility] with increasing shortness of breath found to have right pleural e ffusion who was transferred to [facility] underwent right-sided diagnostic and therapeu tic [...] C) (05/28 034) BP: (110-131)/(50-91) 116/71 (05/28 744) Heart Rate: [...] Component Value Units Date/Time Culture, Body Fluid [[id number]] Collected: 05/26/18 1519 Specimen: Other from Ascites Fluid Updated: 05/28/18 1225 Specimen Description ASCITES FLUID GRAM STAIN STAIN PERFORMED ON CYTOSPIN GRAM STAIN WBC'S SEEN GRAM STAIN NO EPITHELIAL CELLS SEEN GRAM STAIN NO ORGANISMS SEEN CULTURE NO GROWTH 2 DAYS Culture, Body Fluid [[id number]] Collected: 05/26/18 141 Specimen: Body Fluid from Pleural Fluid Updated: 05/28/18 1223 Specimen Description PLEURAL FLUID CULTURE NO GROWTH 2 DAYS Comprehensive metabolic panel [[id number]] (Abnormal) Collected: 05/28/18922 Specimen: Blood Updated: 05/28/18 [...] (H) U/L EGFR 6 (L) mL/min/1.73m2 TSH [[id number]] Collected: 05/28/18922 Specimen: Blood Updated: 05/28/18 1210 TSH 1.270 uIU/mL Pathologist consult [[id number]] Collected: 05/26/18 1412 Updated: 05/28/18 1113 Pathologist Consult -- Troponin I [[id number]] Collected: 05/28/18922 Specimen: Blood Updated: 05/28/18 1055 CBC W/Auto Diff (Reflex to Manual) [[id number]] Collected: 05/28/18922 Specimen: Blood Updated: 05/28/18 09 Sputum culture [[id number]] Collected: 05/27/182014 Specimen: Sputum from Sputum Updated: 05/28/18902 Specimen Description SPUTUM GRAM STAIN LESS THAN 10 WBCS/LPF GRAM STAIN LESS THAN 10 SEC/LPF GRAM STAIN NO ORGANISMS SEEN CULTURE CULTURE IN PROGRESS Hepatitis panel, chronic [[id number]] (Abnormal) Collected: 05/27/181757 Updated: 05/27/182030 Hep A Total Ab REACTIVE (A) HEP B SURFACE AG NON REACTIVE HEP B CORE AB,TOTAL NON REACTIVE HEP B SURFACE ANTIBODY 3.27 (H) IV HEPATITIS C NON REACTIVE HEPATITIS INTERP Current or past HAV infection. Past HBV infection or vaccination. No ser ologic evidence of HCV infection. CBC w/auto diff (reflex to manual) [[id number]] (Abnormal) Collected: 05/27/18424 Specimen: Blood Updated: 05/27/18710 [...] K/uL MORPHOLOGY 2+ Platelet Estimate DECREASED Phosphorus [[id number]] (Abnormal) Collected: 05/27/18424 Specimen: Blood Updated: 05/27/18628 PHOSPHORUS 8.0 (H) mg/dL Basic Metabolic Panel [[id number]] (Abnormal) Collected: 05/27/18424 Specimen: Blood Updated: 05/27/18628 SODIUM 135 mmol/L POTASSIUM 5.9 (H) mmol/L CHLORIDE 96 (L) mmol/L CO2 25 mmol/L ANION GAP AGAP 20 mmol/L GLUCOSE 74 mg/dL BUN 51 (H) mg/dL CREATININE 9.2 (H) mg/dL BUN/CREAT 6 CALCIUM 9.4 mg/dL EGFR 5 (L) mL/min/1.73m2 Magnesium [[id number]] (Abnormal) Collected: 05/27/18424 Specimen: Blood Updated: 05/27/18628 MAGNESIUM 2.7 (H) mg/dL Brain natriuretic peptide [[id number]] (Abnormal) Collected: 05/27/18424 Specimen: Blood Updated: 05/27/18545 BRAIN NATRIURETIC PEPTIDE 1,153.92 (H) pg/mL Respiratory Filmarray [[id number]] (Abnormal) Collected: 05/26/181805 Specimen: Nasopharynx/Oropharynx Updated: 05/26/182 ADENOVIRUS Not Detected CORONAVIRUS 229E Not Detected [...] performed by Molecular Methodology MRSA by PCR [[id number]] Collected: 05/26/181805 Specimen: Nasopharyngeal from Nares(Nose) Updated: 05/26/182025 SOURCE NARES(NOSE) MRSA PCR NEGATIVE Procalcitonin [[id number]] (Abnormal) Collected: 05/26/18 1727 Updated: 05/26/18 1839 PROCALCITONIN 0.76 (H) ng/mL Albumin, Body Fluid [[id number]] Collected: 05/26/18 141 Specimen: Body Fluid from Lung, Right Lower Lobe Updated: 05/26/18 1729 FLUID ALBUMIN 2.3 g/dL Total Protein, Body Fluid [[id number]] Collected: 05/26/18 141 Specimen: Body Fluid from Lung, Right Lower Lobe Updated: 05/26/18 1729 FLUID TOTAL PROTEIN 4.2 g/dL FLUID TP SOURCE PLEURAL FLUID Cell count, Body Fluid [[id number]] Collected: 05/26/18 141 Specimen: Body Fluid from Lung, Right Lower Lobe Updated: 05/26/18 1708 FLUID TYPE PLEURAL FLUID COLOR SAMMIE APPEARANCE CLOUDY RBC'S 3,000 /mm3 TOTAL NUCLEATED CELLS 253 /mm3 NEUTROPHILS 22 % LYMPHOCYTES 8 % MONOCYTES/MACROPHAGES 65 % Mesothelial Cells 5 % CELLS COUNTED 100 pH, Body Fluid [[id number]] Collected: 05/26/18 1412 Specimen: Body Fluid from Lung, Right Lower Lobe Updated: 05/26/18 1508 FLUID PH 7.45 Procalcitonin [[id number]] (Abnormal) Collected: 05/26/18 1214 Updated: 05/26/18 1330 PROCALCITONIN 0.56 (H) ng/mL Cardiac Panel [[id number]] (Abnormal) Collected: 05/26/18 1214 Updated: 05/26/18 1312 [...] ng/mL CK-MB Index 2.7 Brain natriuretic peptide [[id number]] (Abnormal) Collected: 05/26/18 1214 Updated: 05/26/18 1254 [...] radiologist report and is used for image [employer] Echo Cardiac Adult Complete Result Date: 05/27/2018 [...] 17. The mitral valve is normal. 18. Lgsl-nw-vyteykwk eccentric mitral regurgitation i s present. 19. [...] mitral valve is normal. Mitral Kait ve: Gqsd-yy-hgfcmudk eccentric mitral regurgitation is present. Tricuspid Valve: [...] maxP.08 mmHg TR Vmax: 2.7 4 m/s Jowl Trimmer: MOO Authenticated by: Robel Yusuf MD Report [...] 17. The mitral valve is normal. 18. Hnfl-ps-puflf ate eccentric mitral regurgitation is present. 19. [...] Hospitalist Progress Note Dara Louise 23 y.o. [id number] female [facility] Day: LOS: 1 day Patient Summary: 23-year-old female with past medical history of end-stage renal dis ease on hemodialysis Monday, hypertension, anemia of chronic disease who we nt to [facility] with increasing shortness of breath found to have right pleural e ffusion who was transferred to [facility] underwent right-sided diagnostic and therapeu tic [...] in shortness of breath, complaining of dr richa cough, no fever no chest pain though [...] C) (05/27 1114) BP: (119-176)/(67-111) 131/87 (05/27 111) Heart Rate: [75-109] 75 (05/27 1114) Resp: [...] Date/Time CBC w/auto diff (reflex to manual) [[id number]] (Abnormal) Collected: 05/27/18424 Specimen: Blood Updated: 05/27/18 [...] K/uL MORPHOLOGY 2+ Platelet Estimate DECREASED Phosphorus [[id number]] (Abnormal) Collected: 05/27/18424 Specimen: Blood Updated: 05/27/18 0629 PHOSPHORUS 8.0 (H) mg/dL Basic Metabolic Panel [[id number]] (Abnormal) Collected: 05/27/18424 Specimen: Blood Updated: 05/27/18628 SODIUM 135 mmol/L POTASSIUM 5.9 (H) mmol/L CHLORIDE 96 (L) mmol/L CO2 25 mmol/L ANION GAP AGAP 20 mmol/L GLUCOSE 74 mg/dL BUN 51 (H) mg/dL CREATININE 9.2 (H) mg/dL BUN/CREAT 6 CALCIUM 9.4 mg/dL EGFR 5 (L) mL/min/1.73m2 Magnesium [[id number]] (Abnormal) Collected: 05/27/18424 Specimen: Blood Updated: 05/27/18 0629 MAGNESIUM 2.7 (H) mg/dL Brain natriuretic peptide [[id number]] (Abnormal) Collected: 05/27/18424 Specimen: Blood Updated: 05/27/18 0546 BRAIN NATRIURETIC PEPTIDE 1,153.92 (H) pg/mL Respiratory Filmarray [[id number]] (Abnormal) Collected: 05/26/181805 Specimen: Nasopharynx/Oropharynx Updated: 05/26/182141 [...] performed by Molecular Methodology MRSA by PCR [[id number]] Collected: 05/26/18 180 Specimen: Nasopharyngeal from Nares(Nose) Updated: 05/26/182025 SOURCE NARES(NOSE) MRSA PCR NEGATIVE Procalcitonin [[id number]] (Abnormal) Collected: 05/26/18 1727 Updated: 05/26/18 183 PROCALCITONIN 0.76 (H) ng/mL Culture, Body Fluid [[id number]] Collected: 05/26/18 141 Specimen: Body Fluid from Pleural Fluid Updated: 05/26/18 181 Pathologist consult [[id number]] Collected: 05/26/18 141 Updated: 05/26/18 1742 Albumin, Body Fluid [[id number]] Collected: 05/26/18 141 Specimen: Body Fluid from Lung, Right Lower Lobe Updated: 05/26/18 1729 FLUID ALBUMIN 2.3 g/dL Total Protein, Body Fluid [[id number]] Collected: 05/26/18 141 Specimen: Body Fluid from Lung, Right Lower Lobe Updated: 05/26/18 1729 FLUID TOTAL PROTEIN 4.2 g/dL FLUID TP SOURCE PLEURAL FLUID Cell count, Body Fluid [[id number]] Collected: 05/26/18 141 Specimen: Body Fluid from Lung, Right Lower Lobe Updated: 05/26/18 1708 FLUID TYPE PLEURAL FLUID COLOR SAMMIE APPEARANCE CLOUDY RBC'S 3,000 /mm3 TOTAL NUCLEATED CELLS 253 /mm3 NEUTROPHILS 22 % LYMPHOCYTES 8 % MONOCYTES/MACROPHAGES 65 % Mesothelial Cells 5 % CELLS COUNTED 100 Culture, Body Fluid [[id number]] Collected: 05/26/18 1513 Specimen: Other from Ascites Fluid Updated: 05/26/18 1631 Specimen Description ASCITES FLUID GRAM STAIN STAIN PERFORMED ON CYTOSPIN GRAM STAIN WBC'S SEEN GRAM STAIN NO EPITHELIAL CELLS SEEN GRAM STAIN NO ORGANISMS SEEN CULTURE PENDING pH, Body Fluid [[id number]] Collected: 05/26/18 1412 Specimen: Body Fluid from Lung, Right Lower Lobe Updated: 05/26/18 1508 FLUID PH 7.45 Procalcitonin [[id number]] (Abnormal) Collected: 05/26/181213 Updated: 05/26/18 1330 PROCALCITONIN 0.56 (H) ng/mL Cardiac Panel [[id number]] (Abnormal) Collected: 05/26/181213 Updated: 05/26/18 1312 WBC [...] ng/mL CK-MB Index 2.7 Brain natriuretic peptide [[id number]] (Abnormal) Collected: 05/26/181213 Updated: 05/26/18 1254 BRAIN [...] radiologist report and is used for image [employer] only PROBLEM LIST Active Problems: ESRD on [...] heparin ANTHONY BELCHER MD 05/27/2018 Jae Gutierres, [facility] - 05/26/2018 6:05 PM PDTRenal Dosing Monitoring: S: Renal dose monitoring per protocol. O: HD patient A: No adjustments needed at this time. P: Pharmacy will continue monitoring patient for appropriate dosing based on renal functio n. Pharmacist: Jae Gutierres, Jory in this encounter Plan of Treatment Not [...] | + +--------+ + + + | [employer] CARD PANEL W/O | STAT | 05/26/2018 [...] (H) | 35 - 115 U/L | [facility] | | | | | LABORATORY | + + + + + | AST | 97 (H) | 10 - 45 U/L | [facility] | | | | | LABORATORY | [...] the | | | | | MDRD IDVT traceable | | | | | equation.Testing | | | | | performed at [facility], [address] | | | | | [facility], | | | | | [place] [address] | | | + + + + + + + | Specimen | + + | Blood | + + + + + + + | Performing | Address | City/State/Zipcode | Phone Number | | Organization | | | | + + + + + | [facility] | [address] | [place] [address] | [phone] | | LABORATORY | [address]vd. | | [...] performed | | | | | at [facility], [address] | | | | | [facility], | | | | | [place] [address] | | | | |Testing performed at [facility], [address] [place] [address] | | | | | | | | + + + + + + + | Specimen | + + | Blood | + + + + + + + | Performing | Address | City/State/Zipcode | Phone Number | | Organization | | | | + + + + + | [facility] | [address] | [place] [address] | [phone] | | LABORATORY | Blvd. | | [...] (L) | 3.6 - 5.0 g/dL | [facility] | | | | | LABORATORY [...] | | | | | performed at [facility], [address] | | | | | [address], | | | | | [place] [address] | | | + + + + + + + | Specimen | + + | Blood | + + + + + + + | Performing | Address | City/State/Zipcode | Phone Number | | Organization | | | | + + + + + | [facility] | [address] | [place] [address] | [phone] | | LABORATORY | [address] | | [...] performed | | | | | at [facility], [address] | | | | | [facility], | | | | | [place] [address] | | | | |Testing performed at [facility], [address] [facility], [place] [address] | | | | | | | | + + + + + + + | Specimen | + + | Blood | + + + + + + + | Performing | Address | City/State/Zipcode | Phone Number | | Organization | | | | + + + + + | [facility] | [address] | [place] [address] | [phone] | | LABORATORY | [address]vd. | | [...] | | systolic CHF (congestive heart failure) (HCC) Transaminitis | | | The patient is [...] | | | antibiotic" for pneumonia at [facility] ED. Was throwing up & could [...] 10.7 (L) 05/30/2018 Assessment: | | | Dani is a 23 y.o. female patient with [...] 0.8 | 0.1 - 1.5 mg/dL | [facility] | | | | | LABORATORY | [...] | | | | | performed at [facility], [address] | | | | | [facility], | | | | | [place] [address] | | | + + + + + + + | Specimen | + + | Blood | + + + + + + + | Performing | Address | City/State/Zipcode | Phone Number | | Organization | | | | + + + + + | [facility] | [address] | [place] [address] | [phone] | | LABORATORY | [address]vd. | | [...] performed | | | | | at [facility], [address] | | | | | [facility], | | | | | [place] [address] | | | | |Testing performed at [facility], [address] [facility] [place] [address] | | | | | | | | + + + + + + + | Specimen | + + | Blood | + + + + + + + | Performing | Address | City/State/Zipcode | Phone Number | | Organization | | | | + + + + + | [facility] | [address] | [place] [address] | [phone] | | LABORATORY | [address]. | | [...] | disease. | | Signed by: MD KushXander | | Sign Date/Time: 05/29/2018 2:32 PM | + + + + + + + | Performing | Address | City/State/Zipcode | Phone Number | | Organization | | | | + + + + + | [facility] | [address] | [place] [address] | | + + + + + Cholesterol, body fluid (05/29/2018 12:56 PM) + + + + + | Component | Value | Ref Range | Performed At | + + + + + | FLUID CHOLESTEROL | 56Comment: This is not a | mg/dL | [facility] | | | music engraver validated | | LABORATORY | | | sample type for this | | | | | method. No reference | | | | | ranges have been | | | | | established.Testing | | | | | performed at [facility], [address] | | | | | [facility], | | | | | [place] [address] | | | + + + + + + + | Specimen | + + | Body Fluid - | | Pleural, Right | + + + + + + + | Performing | Address | City/State/Zipcode | Phone Number | | Organization | | | | + + + + + | [facility] | [address] | [place] [address] | [phone] | | LABORATORY | [address]vd[address] | | | + + + + + Lactate dehydrogenase, body fluid (05/29/2018 12:56 PM) + + + + + | Component | Value | Ref Range | Performed At | + + + + + | FLUID LDH | 151Comment: This is not | U/L | [facility] | | | a music engraver validated | | LABORATORY | | | sample type for this | | | | | method. No reference | | | | | ranges have been | | | | | established.Testing | | | | | performed at [facility], [address] | | | | | [facility], | | | | | [place] [address] | | | + + + + + + + | Specimen | + + | Body Fluid - | | Pleural, Right | + + + + + + + | Performing | Address | City/State/Zipcode | Phone Number | | Organization | | | | + + + + + | [facility] | [address] | [place] [address] | [phone] | | LABORATORY | [address] | | [...] | + + + + + | [facility] | [address] | [place] [address] | [phone] | | LABORATORY | [address]vd[address] | | [...] | + + + + + | [facility] | [address] | [place] [address] | | + + + + + APTT (05/29/2018 8:52 AM) + + + + + | Component | Value | Ref Range | Performed At | + + + + + | APTT | 29Comment: Testing | 23 - 32 seconds | [facility] | | | performed at [facility];[address];[place] | | | | | [address] | | | + + + + + + + | Specimen | + + | Blood | + + + + + + + | Performing | Address | City/State/Zipcode | Phone Number | | Organization | | | | + + + + + | [facility] | [address] | [place] [address] | | + + + + + Protime-INR (05/29/2018 8:52 AM) + + + + + | Component | Value | Ref Range | Performed At | + + + + + | INR | 1.5Comment: REFERENCE | | [facility] | | | RANGE:0.9 [...] | | | | | performed at [facility];[address] | | | | | [address];[place] | | | | | [address] | | | + + + + + + + | Specimen | + + | Blood | + + + + + + + | Performing | Address | City/State/Zipcode | Phone Number | | Organization | | | | + + + + + | [facility] | [address] | [place] [address] | | + + + + + [...] 14 | 5 - 20 mmol/L | [facility] | | | | | LABORATORY | + + + + + | GLUCOSE | 94Comment: SPECIMEN | 65 - 99 mg/dL | [facility] | | | SLIGHTLY HEMOLYZED | | [...] the | | | | | MDRD [facility] traceable | | | | | equation.Testing | | | | | performed at [facility], [address] | | | | | [facility], | | | | | [place] [address] | | | + + + + + + + | Specimen | + + | Blood | + + + + + + + | Performing | Address | City/State/Zipcode | Phone Number | | Organization | | | | + + + + + | [facility] | [address] | [place] [address] | [phone] | | LABORATORY | [address] | | [...] performed | | | | | at [facility], [address] | | | | | [address], | | | | | [place] [address] | | | | |Testing performed at [facility], [address] [place] [address] | | | | | | | | + + + + + + + | Specimen | + + | Blood | + + + + + + + | Performing | Address | City/State/Zipcode | Phone Number | | Organization | | | | + + + + + | [facility] | [address] | [place] [address] | [phone] | | LABORATORY | [address] | | [...] + + + + + | [facility] | [address] | [place] [address] | | + + + + + Troponin I (05/28/2018 1:59 PM) + + + + + | Component | Value | Ref Range | Performed At | + + + + + | TROPONIN I | 0.037Comment: 0.04 | 0.00 - 0.04 ng/mL | [facility] | | | ng/mL [...] performed at | | | | | [facility];[address] | [address];[place] [address] | | | + + + + + + + | Specimen | + + | Blood | + + + + + + + | Performing | Address | City/State/Zipcode | Phone Number | | Organization | | | | + + + + + | [facility] | [address] | [place] [address] | | + + + + + [...] | | | | | performed at [facility], [address] | | | | | [facility], | | | | | [place] [address] | | | + + + + + + + | Specimen | + + | Blood | + + + + + + + | Performing | Address | City/State/Zipcode | Phone Number | | Organization | | | | + + + + + | [facility] | [address] [place] [address] | [place] [address] | [phone] | | LABORATORY | [address] | | [...] performed at | | | | | [facility], [address] [place] [address] | | | | | [place] | | | | | [address] | | | + + + + + + + | Specimen | + + | Blood | + + + + + + + | Performing | Address | City/State/Zipcode | Phone Number | | Organization | | | | + + + + + | [facility] | [address] | [place] [address] | [phone] | | LABORATORY | [address] | | | + + + + + Renal function panel (05/28/2018 12:09 PM) + + + + + | Component | Value | Ref Range | Performed At | + + + + + | SODIUM | 141 | 135 - 145 mmol/L | [facility] [facility] | + + + + + [...] 9.1 | 8.5 - 10.5 mg/dL | [facility] | + + + + + | Albumin | 3.6 | 3.6 - 5.0 g/dL | [facility] | + + + + + | PHOSPHORUS | 6.3 (H) | 2.3 - 4.8 mg/dL | [facility] | + + + + + | EGFR | 6 (L)Comment: GFR <60: | >60 mL/min/1.73m2 | [facility] | | | CHRONIC [...] | | | | | performed at [facility];[address] | | | | | [address];[place] | | | | | [address] | | | + + + + + + + | Specimen | + + | Blood - Blood | + + + + + + + | Performing | Address | City/State/Zipcode | Phone Number | | Organization | | | | + + + + + | [facility] | [address] | [place] [address] | | + + + + + [...] + + + + | Calculated P [place] | 24 | degrees | [facility] | + + + + + | Calculated R [place] | 24 | degrees | [facility] EKG | + + + + + | Calculated T [place] | 103 | degrees | [facility] EKG [...] + + | [facility] | [address] | [place] [address] | | + + + + + hCG, serum, qualitative (05/28/2018 9:23 AM) + + + + + | Component | Value | Ref Range | Performed At | + + + + + | TEST,SERUM | NEGATIVEComment: Testing | NEGATIVE | [facility] | | | performed at [facility], [facility] | | LABORATORY | | | [address], | | | | | [place] [address] | | | + + + + + + + | Specimen | + + | Blood | + + + + + + + | Performing | Address | City/State/Zipcode | Phone Number | | Organization | | | | + + + + + | [facility] | [address] | [place] [address] | [phone] | | LABORATORY | [address] | | | + + + + + C-reactive protein (05/28/2018 9:23 AM) + + + + + | Component | Value | Ref Range | Performed At | + + + + + | CRP | 5.1 (H)Comment: Testing | <0.5 mg/dL | [facility] | | | performed at [facility], [address] | | LABORATORY | | | [address], | | | | | [place] [address] | | | + + + + + + + | Specimen | + + | Blood | + + + + + + + | Performing | Address | City/State/Zipcode | Phone Number | | Organization | | | | + + + + + | [facility] | [address] | [place] [address] | [phone] | | LABORATORY | [address] | | | + + + + + Sedimentation rate, automated (05/28/2018 9:23 AM) + + + + + | Component | Value | Ref Range | Performed At | + + + + + | ESR | 2Comment: Testing | 0 - 20 mm/Hr | [facility] | | | performed at [facility], [address] | | LABORATORY | | | [address], | | | | | [place] [address] | | | + + + + + + + | Specimen | + + | Blood | + + + + + + + | Performing | Address | City/State/Zipcode | Phone Number | | Organization | | | | + + + + + | [facility] | [address] | [place] [address] | [phone] | | LABORATORY | [address] | | | + + + + + TSH (05/28/2018 9:23 AM) + + + + + | Component | Value | Ref Range | Performed At | + + + + + | TSH | 1.270Comment: Testing | 0.450 - 5.100 uIU/mL | [facility] | | | performed at [facility], [address] | | LABORATORY | | | [address], | | | | | [place] [address] | | | + + + + + + + | Specimen | + + | Blood | + + + + + + + | Performing | Address | City/State/Zipcode | Phone Number | | Organization | | | | + + + + + | [facility] | [address] | [place] [address] | [phone] | | LABORATORY | [address] | | | + + + + + Troponin I (05/28/2018 9:23 AM) + + + + + | Component | Value | Ref Range | Performed At | + + + + + | TROPONIN I | 0.034Comment: 0.04 | 0.00 - 0.04 ng/mL | [facility] | | | ng/mL [...] performed at | | | | | [facility];[address] [place] [address] | | | | | [facility];[place] [address] | | | + + + + + + + | Specimen | + + | Blood | + + + + + + + | Performing | Address | City/State/Zipcode | Phone Number | | Organization | | | | + + + + + | [facility] | [address] | [place] [address] | | + + + + + [...] (L)Comment: GFR <60: | >60 mL/min/1.73m2 | [facility] | | | CHRONIC KIDNEY DISEASE, | [...] | | | | | performed at [facility], [address] | | | | | [facility], | | | | | [place] [address] | | | + + + + + + + | Specimen | + + | Blood | + + + + + + + | Performing | Address | City/State/Zipcode | Phone Number | | Organization | | | | + + + + + | [facility] | [address] | [place] [address] | [phone] | | LABORATORY | [address] | | [...] performed | | | | | at [facility], [address] | | | | | [employer], | | | | | [place] [address] | | | | |Testing performed at [facility], [address] [facility], [place] [address] | | | | | | | | + + + + + + + | Specimen | + + | Blood | + + + + + + + | Performing | Address | City/State/Zipcode | Phone Number | | Organization | | | | + + + + + | [facility] | [address] | [place] [address] | [phone] | | LABORATORY | [address] | | | + + + + + Pathology cytology - fluid (05/28/2018 8:00 AM) + + | Specimen | + + | Body Fluid | + + + + + | Narrative | Performed At | + + + | ORDERING PHYSICIAN: Maria Luisa ALMEIDA, Aneudy Briggs PATIENT NAME: | MOLLY | | DANILOLYCLEMENT Lundberg GENDER: F : 1995 | PATHOLOGY | | SPECIMEN(S): [...] PERFORMING LABORATORY: Technical preparation was performed by [employer] | | | [facility], [address] [place] [address] | | | (Buyer Liaison: Matt Claudio D.O.; CLIA#: [id number]). | | | Professional interpretation was performed by [employer], | | | [facility], [address] [place] [phone] | | | (Buyer Liaison: Daniel Larson M.D.; CLIA#: [id number]).6 | | | Diagnostician: Marie BROOKS ([facility]) Rigging Loft Mechanic | | | Diagnostician: Anahy Da Silva MD Pathologist Electronically Signed | | | 05/30/2018 | | + + + + +---------+ + + | Performing | Address | City/State/Zipcode | Phone Number | | Organization | | | | + +---------+ + + | [facility] | | | | + +---------+ [...] + + + | [facility] | [address] | [place] [address] | [phone] | | LABORATORY | [address] | | [...] performed at | | | | | [facility], [address] [place] [address] | | | | | [place] | | | | | [address] | | | + + + + + + + + + + | Performing | Address | City/State/Zipcode | Phone Number | | Organization | | | | + + + + + | [facility] | [address] | [place] [address] | [phone] | | LABORATORY | [address] | | [...] valve is normal. 18. | | | Xufv-sc-trkuxdle eccentric mitral regurgitation is present. 19. | [...] DARA LOUISE Date of : 1995 | [facility] | | Performing Physician: Robel [...] valve is normal. 18. | | | Pcju-mb-ektvwheu eccentric mitral regurgitation is present. 19. | [...] is | | | normal. Mitral Valve: Igiv-rh-ialuybaw eccentric mitral | | | regurgitation is [...] TR Vmax: 2.74 m/s | | | Jowl Trimmer: MW Authenticated by: Robel Yusuf MD Report | | | Date/Time: 05-27-2018 13:59:57 | | + + + + + | Procedure Note | + + | Sonido Steele In - 05/27/2018 2:00 PM PDT Patient Name: Anders LOUISE of | | : 1995Accession: [id number] Physician: Robel Yusuf | | MD INDICATIONS [...] aortic stenosis.17. The mitral valve is normal.18. Mgga-kz-ptvdjodw | | eccentric mitral regurgitation is present.19. [...] | | arch are normal.26. No mass vrtbojqskh16. No clot visualizedFINDINGS--------ECG rhythm: | | Sinus [...] The mitral valve is normal. Mitral Valve: Lqrg-mp-mysknorg eccentric mitral | | regurgitation is present.Tricuspid [...] (A-L): 30.43 | | ml/m2LAAs A2C: 20.97 km5KPBOH A-L A2C: 65.71 mlLALs A2C: 5.68 cmLAAs A4C: 19.94 | | ha7OZODP A-L A4C: 60.20 mlLALs A4C: 5.60 cmTAPSE: 1.58 cmHR: 79.62 BPMAV maxPG: | | 6.06 mmHgAV meanP.71 mmHgAV Vmax: 1.23 m/Elizabeth Vmean: 0.92 m/Elizabeth VTI: 20.07 | | cmAVA Vmax: 1.74 cm2AVA (VTI): 1.93 [id number] Vmax: 0.00 cm2/m2AVAI (VTI): 0.00 | | [...] The mitral valve is | | normal.18. Baqd-ce-qgfmaids eccentric mitral regurgitation is present.19. Severe | [...] No mass . No clot visualized | |LVIDd: 4.99 cm [...] |TR Vmax: 2.74 m/s | | | |Jowl Trimmer: MW | |Authenticated by: Robel Yusuf MD [...] The mitral valve is normal. | |18. Lfdb-tw-iyemgvuh eccentric mitral regurgitation is present. | |19. [...] + + + + + | [facility] | [address] | [place] [address] | | + + + + + [...] | + + + + + | [facility] | [address] | [place] [address] | | + + + + + Brain natriuretic peptide (05/27/2018 4:25 AM) + + + + + | Component | Value | Ref Range | Performed At | + + + + + | BRAIN NATRIURETIC | 1153.92 (H)Comment: | 0 - 100 pg/mL | [facility] | | PEPTIDE | Testing performed at | | | | | [facility] | | | | | Blvd;[place] [address] | | | + + + + + + + | Specimen | + + | Blood | + + + + + + + | Performing | Address | City/State/Zipcode | Phone Number | | Organization | | | | + + + + + | [facility] | [address] | [place] [address] | | + + + + + Phosphorus (05/27/2018 4:25 AM) + + + + + | Component | Value | Ref Range | Performed At | + + + + + | PHOSPHORUS | 8.0 (H)Comment: Testing | 2.3 - 4.8 mg/dL | [facility] | | | performed at [facility], [address] | | LABORATORY | | | [address], | | | | | [place] [address] | | | + + + + + + + | Specimen | + + | Blood | + + + + + + + | Performing | Address | City/State/Zipcode | Phone Number | | Organization | | | | + + + + + | [facility] | [address] | [place] [address] | [phone] | | LABORATORY | [address]vd[address] | | | + + + + + Magnesium (05/27/2018 4:25 AM) + + + + + | Component | Value | Ref Range | Performed At | + + + + + | MAGNESIUM | 2.7 (H)Comment: Testing | 1.7 - 2.4 mg/dL | [facility] | | | performed at [facility], [address] | | LABORATORY | | | [address], | | | | | [place] [address] | | | + + + + + + + | Specimen | + + | Blood | + + + + + + + | Performing | Address | City/State/Zipcode | Phone Number | | Organization | | | | + + + + + | [facility] | [address] | [place] [address] | [phone] | | LABORATORY | [address]vd[address] | | [...] | | | | | performed at [facility], [address] | | | | | [facility], | | | | | [place] [address] | | | + + + + + + + | Specimen | + + | Blood | + + + + + + + | Performing | Address | City/State/Zipcode | Phone Number | | Organization | | | | + + + + + | [facility] | [address] | [place] [address] | [phone] | | LABORATORY | [address] | | | + + + + + CBC w/auto diff (reflex to manual) (05/27/2018 4:25 AM) + + + + + | Component | Value | Ref Range | Performed At | + + + + + | WBC | 6.62 | 3.80 - 11.00 K/uL | [facility] | + + + + + | RBC | 3.48 (L) | 3.70 - 5.10 M/uL | [facility] | + + + + + | HGB | 12.5 | 11.3 - 15.5 g/dL | [facility] | + + + + + | HCT | 37.9 | 34.0 - 46.0 % | [facility] | + + + + + | MCV | 108.8 (H) | 80.0 - 100.0 fl | [facility] | + + + + + | MCH | 35.8 (H) | 27.0 - 34.0 pg | [facility] | + + + + + | MCHC | 32.9 | 32.0 - 35.5 g/dL | [facility] | + + + + + | RDW SD | 59.1 (H) | 37 - 53 fl | [facility] | + + [...] 0.05 | 0.00 - 0.10 K/uL | [facility] | + + + + + | MORPHOLOGY | 2+ | | [facility] | | | Comment: | | | | | MACRO | | | | | NORMAL PLT MORPH | | | | | | | | + + + + + | Platelet Estimate | DECREASEDComment: | | [facility] | | | Testing performed at | | | | | [facility];[address] | | | | | [address];[place] [address] | | | + + + + + + + | Specimen | + + | Blood | + + + + + + + | Performing | Address | City/State/Zipcode | Phone Number | | Organization | | | | + + + + + | [facility] | [address] | [place] [address] | | + + + + + MRSA by PCR (05/26/2018 6:06 PM) + + + + + | Component | Value | Ref Range | Performed At | + + + + + | SOURCE | NARES(NOSE) | | [facility] | + + + + + | MRSA PCR | NEGATIVEComment: Testing | NEGATIVE | [facility] | | | performed at [facility];[address] | | | | | [address];[place] | | | | | [address] | | | + + + + + + + | Specimen | + + | Nasopharyngeal - | | Nares(Nose) | + + + + + + + | Performing | Address | City/State/Zipcode | Phone Number | | Organization | | | | + + + + + | [facility] | [address] | [place] [address] | | + + + + + [...] INTERP | Testing performed by | | [facility] | | | Molecular | | LABORATORY | | | MethodologyComment: | | | | | Testing performed at | | | | | [facility], [address] | | | | | [place], [place] | | | | | [address] | | | + + + + + + + | Specimen | + + | Nasopharynx/Orophary | | nx | + + + + + + + | Performing | Address | City/State/Zipcode | Phone Number | | Organization | | | | + + + + + | [facility] | [address] | [place] [address] | [phone] | | [facility] | [address]. | | | + + + + + PROCALCITONIN (05/26/2018 5:27 PM) + + + + + | Component | Value | Ref Range | Performed At | + + + + + | PROCALCITONIN | 0.76 (H)Comment: | <0.5 ng/mL | [facility] | | | INTERPRETIVE [...] performed | | | | | at [facility];[address] | | | | | [place] [address] | | | + + + + + + + + + + | Performing | Address | City/State/Zipcode | Phone Number | | Organization | | | | + + + + + | [facility] | [address] | [place] [address] | | + + + + + [...] [facility] | [address] | [place] [address] | | + + + + + [...] representing atelectasis. Signed by: MD Lakhwinder, Florian Olivares | | | Date/Time: 05/26/2018 4:19 PM [...] + + + + + | [facility] | [address] | [place] [address] | | + + + + + [...] STAIN | STAIN PERFORMED ON | | [facility] | | | CYTOSPIN | | [...] | + + + + + | [facility] | [address] | [place] [address] | [phone] | | LABORATORY | Blvd. | | | + + + + + | [facility] | [address] | [place] [address] | | + + + + + Pathologist consult (05/26/2018 2:12 PM) + + + + + | Component | Value | Ref Range | Performed At | + + + + + | Pathologist Consult | Comment: Review of | | [facility] | | | pleural [...] performed | | | | | at [facility];[address] | | | | | [address];[place] [address] | | | + + + + + + + + + + | Performing | Address | City/State/Zipcode | Phone Number | | Organization | | | | + + + + + | [facility] | [address] | [place] [address] | | + + + + + Total Protein, Body Fluid (05/26/2018 2:12 PM) + + + + + | Component | Value | Ref Range | Performed At | + + + + + | FLUID TOTAL PROTEIN | 4.2Comment: This is not | g/dL | [facility] | | | a music engraver validated | | LABORATORY | | | sample type for this | | | | | method. No reference | | | | | ranges have been | | | | | established.Testing | | | | | performed at [facility], [address] | | | | | [address], | | | | | [place] [address] | | | + + + + + | FLUID TP SOURCE | PLEURAL FLUIDComment: | | [facility] | | | Testing performed at | | | | | [facility];[address] | | | | | [address];[place] [address] | | | + + + + + + + | Specimen | + + | Body Fluid - Lung, | | Right Lower Lobe | + + + + + + + | Performing | Address | City/State/Zipcode | Phone Number | | Organization | | | | + + + + + | [facility] | [address] | [place] [address] | | + + + + + | [facility] | [address] | [place] [address] | [phone] | | LABORATORY | [address]vd[address] | | | + + + + + Albumin, Body Fluid (05/26/2018 2:12 PM) + + + + + | Component | Value | Ref Range | Performed At | + + + + + | FLUID ALBUMIN | 2.3Comment: This is not | g/dL | [facility] | | | a music engraver validated | | LABORATORY | | | sample type for this | | | | | method. No reference | | | | | ranges have been | | | | | established.Testing | | | | | performed at [facility], [address] | | | | | [facility], | | | | | [place] [address] | | | + + + + + + + | Specimen | + + | Body Fluid - Lung, | | Right Lower Lobe | + + + + + + + | Performing | Address | City/State/Zipcode | Phone Number | | Organization | | | | + + + + + | [facility] | [address] | [place] [address] | [phone] | | LABORATORY | [address] | | | + + + + + pH, Body Fluid (05/26/2018 2:12 PM) + + + + + | Component | Value | Ref Range | Performed At | + + + + + | FLUID PH | 7.45Comment: Testing | | [facility] | | | performed at [facility];[address] | | | | | [address];[place] | | | | | [address] | | | + + + + + + + | Specimen | + + | Body Fluid - Lung, | | Right Lower Lobe | + + + + + + + | Performing | Address | City/State/Zipcode | Phone Number | | Organization | | | | + + + + + | [facility] | [address] | [place] [address] | | + + + + + [...] + + + | [facility] | [address] | [place] [address] | [phone] | | LABORATORY | [address]vd[address] | | | + + + + + Cell count, Body Fluid (05/26/2018 2:12 PM) + + + + + | Component | Value | Ref Range | Performed At | + + + + + | FLUID TYPE | PLEURAL FLUID | | [facility] | + + + + + | COLOR | SAMMIE | | [facility] | + + + + + | APPEARANCE | CLOUDY | | [facility] | + + + + + | RBC'S | 3,000Comment: CORRECTED | /mm3 | [facility] | | | RESULTS CALLED TO | | | | | MARIA LUISA IN ED AT 1705 | | | | | BY LGJCORRECTED ON 05/26 | | | | | AT 1702: PREVIOUSLY | | | | | REPORTED <[id number] | | | + + + + + | TOTAL NUCLEATED | 253Comment: CORRECTED | /mm3 | [facility] | | CELLS | [...] | MONOCYTES/MACROPHAGE | 65 | % | [facility] | | S | | | | + + + + + | Mesothelial Cells | 5 | % | [facility] | + + + + + | CELLS COUNTED | 100Comment: Testing | | [facility] | | | performed at [facility];[address] | | | | | [address];[place] | | | | | [address] | | | + + + + + + + | Specimen | + + | Body Fluid - Lung, | | Right Lower Lobe | + + + + + + + | Performing | Address | City/State/Zipcode | Phone Number | | Organization | | | | + + + + + | [facility] | [address] | [place] [address] | | + + + + + PROCALCITONIN (05/26/2018 12:14 PM) + + + + + | Component | Value | Ref Range | Performed At | + + + + + | PROCALCITONIN | 0.56 (H)Comment: | <0.5 ng/mL | [facility] | | | INTERPRETIVE [...] performed | | | | | at [facility];[address] [place] [address] | | | | | [address];[place] [address] | | | + + + + + + + + + + | Performing | Address | City/State/Zipcode | Phone Number | | Organization | | | | + + + + + | [facility] | [address] | [place] [address] | | + + + + + Brain natriuretic peptide (05/26/2018 12:14 PM) + + + + + | Component | Value | Ref Range | Performed At | + + + + + | BRAIN NATRIURETIC | 1,118.24 (H)Comment: | 0 - 100 pg/mL | [facility] | | PEPTIDE | Testing performed at | | | | | [facility];[address] | | | | | [address];[place] [address] | | | + + + + + + + + + + | Performing | Address | City/State/Zipcode | Phone Number | | Organization | | | | + + + + + | [facility] | [address] | [place] [address] | | + + + + + Cardiac Panel (05/26/2018 12:14 PM) + + + + + | Component | Value | Ref Range | Performed At | + + + + + | WBC | 5.73 | 3.80 - 11.00 K/uL | [facility] | + + + + + | RBC | 3.32 (L) | 3.70 - 5.10 M/uL | [facility] | + + + + + | HGB | 12.1 | 11.3 - 15.5 g/dL | [facility] | + + + + + | HCT | 36.1 | 34.0 - 46.0 % | [facility] | + + + + + | MCV | 108.7 (H) | 80.0 - 100.0 fl | [facility] | + + + + + | MCH | 36.3 (H) | 27.0 - 34.0 pg | [facility] | + + + + + | MCHC | 33.4 | 32.0 - 35.5 g/dL | [facility] | + + + + + | RDW SD | 59.9 (H) | 37 - 53 fl | [facility] | + + + + + | PLT | 151 | 150 - 400 K/uL | [facility] | + + + + + | MPV | 10.1 | fl | [facility] | + + + + + | DIFF TYPE | AUTOMATED | | [facility] | + + + + + [...] | MORPHOLOGY | 2+Comment: MACRO | | [facility] | + + + + + | Platelet Estimate | ADEQUATE | | [facility] | + + + + + | SODIUM | 140 | 135 - 145 mmol/L | [facility] | + + + + + | POTASSIUM | 4.6 | 3.5 - 4.9 mmol/L | [facility] | + + + [...] 2.9 | 1.3 - 4.9 g/dL | [facility] | + + + + + | A/G | 1.5 | 1.0 - 2.4 | [facility] | + + + + + | TBIL | 1.1 | 0.1 - 1.5 mg/dL | [facility] | + + + + + | ALK PHOS | 120 (H) | 35 - 115 U/L | [facility] | + + + + + | AST | 82 (H) | 10 - 45 U/L | [facility] | + + + + + | ALT | 64 | 10 - 65 U/L | [facility] | + + + + + | EGFR | 6 (L)Comment: GFR <60: | >60 mL/min/1.73m2 | [facility] | | | CHRONIC [...] the | | | | | MDRD [facility] traceable | | | | | equation. | | | + + + + + | CPK | 291 (H) | 30 - 240 U/L | [facility] | + + + + + | INR | 1.6Comment: REFERENCE | | [facility] | | | RANGE:0.9 [...] 29 | 23 - 32 seconds | [facility] | + + + + + | MMB | 7.8 (H) | 0.5 - 3.6 ng/mL | [facility] | + + + + + | CK-MB Index | 2.7Comment: CK INDEX | | [facility] | | | INTERPRETATION: [...] | | | | | performed at [facility];[address] | | | | | [address];[place] | | | | | [address] | | | + + + + + + + + + + | Performing | Address | City/State/Zipcode | Phone Number | | Organization | | | | + + + + + | [facility] | [address] | [place] [address] | | + + + + + [...] space: 4th Puncture | | | method: [id number]-[id number] catheter Ultrasound guidance: yes | | | [...] perforation, infection and | | | pain [place] protocol: Imaging studies available: yes | | [...] Performed At | + + + | [id number] Criteria Met 2 in 2 | ED [...] Count (12 mo.) Facility Visits Low Acuity [facility] | | | [facility] 1 0 [facility] 5 0 Total 6 0 | | | Note: Visits indicate total known visits. Medicaid Low Acuity Dx | | | are the number of primary diagnoses on the Medicaid's Low Acuity dx | | | list. Recent Emergency Department Visit Summary Date Facility | | | [facility] State Type Diagnoses or Chief Complaint May 26, [address] [facility] | | | [facility] Reji Nagy [place] Emergency Chest pain, unspecified | | | [facility] [place] [facility] | | | Complaint: FLU SYMPTOMS [facility] [place] | | | Emergency Chief Complaint: SOB/COUGH May 10, 2018 [facility] | | | [facility] [place] [...] | | disease Feb 14, 2018 [facility] 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 [place] [place] Emergency Chronic kidney disease, | | | unspecified Dependence on renal dialysis Pain, | | | unspecified Allergy status to narcotic agent status | | | Nicotine dependence, unspecified, uncomplicated Other terminal block assembler | | | (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 Elevated [...] record at this time. | | | Prescribe Wellness Portal This patient has registered at the [facility] | | | [facility] Emergency Department For more information visit: | | | [email or web address] | | | [email or web address] andnbsp PLEASE NOTE: 1. Any care recommendations and [...] | | completeness of information provided. 2019 [employer] | | | [employer] | | + + + + + | Procedure Note | + + | Will, Lab - 05/26/2018 12:00 PM PDT Formatting of this note may be different | | from the original.[id number] Met 2 in 2Security and | | SafetyNo recent Security Events currently on fileED Care GuidelinesThere are currently | | no ED Care Guidelines for this patient. Please check your facility's medical records | | system.Prescription Drug Report (12 Mo.)PDMP query found no report.E.D. Visit Count (12 | | mo.)Facility Visits Low Acuity [facility] 1 0 [facility] | | Hospital 5 0 Total 6 0 Note: Visits indicate total known visits. Medicaid Low Acuity Dx | | are the number of primary diagnoses on the Medicaid's Low Acuity dx list. Recent | | Emergency Department Visit SummaryDate Facility City State Type Diagnoses or Chief | | Complaint May 26, 2018 [facility] [place] Emergency Chest pain, | | unspecified May 26, 2018 [facility] [place] [place] Emergency Chief Complaint: FLU | | SYMPTOMS May 25, 2018 [facility] [place] [facility] Chief Complaint: | | SOB/COUGH May 10, 2018 [facility] [place] [place] [facility] Epistaxis Other long [...] stage renal disease Feb 14, 2018 [facility] | | [place] Emergency Functional dyspepsia Other ascites Epigastric pain | | Allergy status to narcotic agent status Radiographic dye allergy status Nicotine | | dependence, unspecified, uncomplicated Other residential (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 [place] | | 2017 [facility] [place] [place] Emergency Chronic kidney disease, unspecified | | Dependence on renal dialysis Pain, unspecified Allergy status to narcotic agent | | status Nicotine dependence, unspecified, uncomplicated Other residential (current) | | 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 Elevated blood-pressure [...] | PortalThis patient has registered at the [facility] Emergency | | Department For more information visit: | | [email or web address] andnbsp | | PLEASE NOTE: 1. Any [...] to the | | limitations of applicable Prescribe Wellness Policies. 3. You should consult directly with | | the organization that provided a care guideline or other clinical history with any | | questions about additional information or accuracy or completeness of information | | provided.2019 [employer] [facility]. 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 [place] [facility] | | Functional dyspepsia | | Other ascites | | Epigastric pain | | Allergy status to narcotic agent status | | Radiographic dye allergy status | | Nicotine dependence, unspecified, uncomplicated | | Other residential (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 | | | |Sep 16, 2017 [facility] 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 [...] of information provided. | | | |2019 [employer] [facility]. - [email or web address] | + + + +---------+ + + [...] procedure without a radiologist report and | SURI | | is used for image storage [...] + + + + + | [facility] | [address] | [place] [address] | | + + + + + [...] 10 mLs | | | | 0.5% -[id number] injection 10 mL | Other | 9 [...] PDT | | | | | Dialysis, [place] 05/27/18 at 1700, | | | | [...] PDT | | | | | Dialysis, [facility] 05/30/18 at 0730, | | | [...] PDT | | | | | Dialysis, [place] 05/27/18 at 1700, | | | | [...] PDT | | | | | Dialysis, [facility] 05/28/18 at 1230, | | [...] | | | | | Dialysis, [facility] 06/01/18 at 0800, | | | | [...]
--- OUTSIDE RECORDS SUMMARY | ~2018-06-12 | XMS | Clinical Summary ---
Demographics + + + | Address | [facility] [address] | | | [place] [address] | + + + | Home [...] + + + | Author | [facility] [employer] | + + + | Organization | [facility] | + + + | Address [...] | | | | | [place] [address] | | + + + + + | Wilson De Guzman | ECON | Unknown | | + + + + + Care Team Providers + +------+ + | Care Net Developer Programmer Name | Role | Phone | [...] | Acute systolic CHF (congestive heart failure) (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); | | | | | | Hyperkalemia; | | | | | | Hyperphosphatemia; | | | | | | At high risk for | | | | | | electrolyte | | | | | | imbalance; Acute | | | | | | systolic CHF | | | | | | (congestive heart | | | | | | failure) ([facility]); | | | | | | Hypoalbuminemia; | | | | | | Anemia in ESRD | | | | | | (end-stage renal | | | | | | disease) ([facility]); ESRD | | | | | | on hemodialysis | +--------+ + + + + +---+ + | | Discharge | | | Summaries | | | - Flo, | | | Darell Scott MD | | | - | | [...] | | | MRN: | | | [id number] | | | OM: | | | [...] | Signed by: | | | MD Debbie, | | | El Sign | | [...] | | | Date: | | | 05/27/20181. | | | Sinus | | | [...] | | [facility] | | | with | | | increasing | | | shortness | | | of breath | | | found to | | | have right | | | pleural | | | effusion | | | who was | | | transferred | | | to [facility] | | | Hospital | | | [...] | | cardiologis | | | t asFollow | | | Up | | | Labs/Imagin | | [...] | | | 3 | | | 50 | | | 4 | | | [...] | | Body Fluid | | | [[id number]] | | | Collected: | | | [...] | | Body Fluid | | | [[id number]] | | | Collected: | | | [...] | | | stain | | | [[id number]] | | | Collected: | | | [...] | | | fluid | | | [[id number]] | | | Collected: | | | [...] | | | fluid | | | [[id number]] | | | Collected: | | | 05/29/18 | | | 1256 | | | Specimen: | | | Body Fluid | | | from | | | Pleural, | | | Right | | | Updated: | | | 05/29/ | | | 1619 | | | [...] | | | Bharat, | | | [id number] | | [address], [place] | | | [address] | | | n [place] | | | [phone] | | | [phone] 1 | | | weekLindsay | | | Mahmood, | | | [id number] | | | [place] | | | DRSTE | | | [place] | | | [place] | | | [phone] | | | [phone] 1 | | | weekJennife | | | r Ibarra, | | | MD[address] | | | [place] | | | [address] | | | [place] | | | [phone] | | | [phone] 1 | | [...] | | | FLO, | | | MD3/ | | | 9:59 | | | [...] | +---+ + from Last 3 Months Family History [...] | Left: | SYNOVIS | | | [id number] | | 0.8x8cm - [id number]: | | Arm | | | | [...] | | | COVIDIEN | | | [id number] | | 23cmExplanted: Qty: 1 on | | | | | | 3404 / | | 04/08/2014 | | | | | | | | | | | | | | /[id number] | | | | | | | [...] | + +--------+ + + + | [facility]/O | STAT | 05/26/2018 [...] performed | | | | | at [facility], [address] | | | | [address], | | | | | [place] [address] | | | | |Testing performed at [facility], [address] [place] [address] | | | | | | | | + + + + + + + | Specimen | + + | Blood | + + + + + + + | Performing | Address | City/State/Zipcode | Phone Number | | Organization | | | | + + + + + | [facility] | [address] | [place] [address] | [phone] | | LABORATORY | Blvd. | | [...] [address] | | | | | [facility], | | | | | [place] [address] | | | + + + + + + + | Specimen | + + | Blood | + + + + + + + | Performing | Address | City/State/Zipcode | Phone Number | | Organization | | | | + + + + + | [facility] | [address] | [place] [address] | [phone] | | LABORATORY | Blvd. | | [...] | | | antibiotic" for pneumonia at [facility] ED. Was throwing up & could [...] | + + + + + | [facility] | [address] | [place] [address] | | + + + + + Cholesterol, body fluid (05/29/2018 12:56 PM) + + + + + | Component | Value | Ref Range | Performed At | + + + + + | FLUID CHOLESTEROL | 56Comment: This is not a | mg/dL | [facility] | | | regional property manager validated | | LABORATORY | | | sample type for this | | | | | method. No reference | | | | | ranges have been | | | | | established.Testing | | | | | performed at [facility], [address] | | | | | [address], | | | | | [place] [address] | | | + + + + + + + | Specimen | + + | Body Fluid - | | Pleural, Right | + + + + + + + | Performing | Address | City/State/Zipcode | Phone Number | | Organization | | | | + + + + + | [facility] | [address] | [place] [address] | [phone] | | LABORATORY | [address] | | [...] + + + | [facility] | [address] | [place] [address] | [phone] | | LABORATORY | Blvd. | | | + + + + + Lactate dehydrogenase, body fluid (05/29/2018 12:56 PM) + + + + + | Component | Value | Ref Range | Performed At | + + + + + | FLUID LDH | 151Comment: This is not | U/L | [facility] | | | a regional property manager validated | | LABORATORY | | | sample type for this | | | | | method. No reference | | | | | ranges have been | | | | | established.Testing | | | | | performed at [facility], [address] | | | | | [address], | | | | | [place] [address] | | | + + + + + + + | Specimen | + + | Body Fluid - | | Pleural, Right | + + + + + + + | Performing | Address | City/State/Zipcode | Phone Number | | Organization | | | | + + + + + | [facility] | [address] | [place] [address] | [phone] | | LABORATORY | [address] | | [...] | | space is punctured with an 8-English thoracentesis catheter. Fluid is | | | [...] the pleural space is punctured with an 8-English | | thoracentesis catheter. Fluid is aspirated [...] + + + + + | [facility] | [address] | [place] [address] | | + + + + + APTT (05/29/2018 8:52 AM) + + + + + | Component | Value | Ref Range | Performed At | + + + + + | APTT | 29Comment: Testing | 23 - 32 seconds | [facility] | | | performed at [facility];[address] | | | | | [address];[place] | | | | | [address] | | | + + + + + + + | Specimen | + + | Blood | + + + + + + + | Performing | Address | City/State/Zipcode | Phone Number | | Organization | | | | + + + + + | [facility] | [address] | [place] [address] | | + + + + + Protime-INR (05/29/2018 8:52 AM) + + + + + | Component | Value | Ref Range | Performed At | + + + + + | INR | 1.5Comment: REFERENCE | | [facility] | | | RANGE:0.9 [...] | | | performed at [facility];[address];[place] | | | | | [address] | | | + + + + + + + | Specimen | + + | Blood | + + + + + + + | Performing | Address | City/State/Zipcode | Phone Number | | Organization | | | | + + + + + | [facility] | [address] | [place] [address] | | + + + + + [...] + + + + + | [facility] | [address] | [place] [address] | | + + + + + Troponin I (05/28/2018 1:59 PM)Only the most recent of 2 results within the time period is included. + + + + + | Component | Value | Ref Range | Performed At | + + + + + | TROPONIN I | 0.037Comment: 0.04 | 0.00 - 0.04 ng/mL | [facility] | | | ng/mL or | | | | | less Nega | | | | | tive, repeat testing in | | | | | four to six hour if | | | | | clinically indicted0.05 | | | | | to 0.77 | | | | | ng/mL Elti | | | | | picious for [...] performed at | | | | | [facility];[address] | | | | [address];[place] [address] | | | + + + + + + + | Specimen | + + | Blood | + + + + + + + | Performing | Address | City/State/Zipcode | Phone Number | | Organization | | | | + + + + + | [facility] | [address] | [facility] [place] [address] | | + + + + + [...] performed at | | | | | [facility], [address] | | | | | [place] | | | | | [address] | | | + + + + + + + | Specimen | + + | Blood | + + + + + + + | Performing | Address | City/State/Zipcode | Phone Number | | Organization | | | | + + + + + | [facility] | [address] | [place] [address] | [phone] | | LABORATORY | Blvd. | | [...] performed at [facility], [facility] [address] | | | | | [facility], | | | | | [place] [address] | | | + + + + + + + | Specimen | + + | Blood | + + + + + + + | Performing | Address | City/State/Zipcode | Phone Number | | Organization | | | | + + + + + | [facility] | [address] [place] [address] | [place] [address] | [phone] | | LABORATORY | vd. | | | + + + + + Renal function panel (05/28/2018 12:09 PM) + + + + + | Component | Value | Ref Range | Performed At | + + + + + | SODIUM | 141 | 135 - 145 mmol/L | [facility]AT[facility] | + + + + [...] 9.1 | 8.5 - 10.5 mg/dL | [facility] | + + + + + | Albumin | 3.6 | 3.6 - 5.0 g/dL | [facility] | + + + + + | PHOSPHORUS | 6.3 (H) | 2.3 - 4.8 mg/dL | [facility] | + + + + + | EGFR | 6 (L)Comment: GFR <60: | >60 mL/min/1.73m2 | [facility] | | | CHRONIC [...] the | | | | | MDRD SDMS traceable | | | | | equation.Testing | | | | | performed at [facility];[address] | | | | | [address];[place] | | | | | [address] | | | + + + + + + + | Specimen | + + | Blood - Blood | + + + + + + + | Performing | Address | City/State/Zipcode | Phone Number | | Organization | | | | + + + + + | [facility] | [address] | [place] [address] | | + + + + + [...] + + + + | Calculated P Og[place] | 24 | degrees | [facility] | + + + + + | Calculated R [place] | 24 | degrees | [facility] | + + + + + | Calculated T [place] | 103 | degrees | [facility] EKG [...] + + + + + | [facility] | [address] | [facility] [place] [address] | | + + + + + Sedimentation rate, automated (05/28/2018 9:23 AM) + + + + + | Component | Value | Ref Range | Performed At | + + + + + | ESR | 2Comment: Testing | 0 - 20 mm/Hr | [facility] | | | performed at [facility], [address] | | LABORATORY | | | [address], | | | | | [place] [address] | | | + + + + + + + | Specimen | + + | Blood | + + + + + + + | Performing | Address | City/State/Zipcode | Phone Number | | Organization | | | | + + + + + | [facility] | [address] | [place] [address] | [phone] | | LABORATORY | [address]vd[address] | | | + + + + + C-reactive protein (05/28/2018 9:23 AM) + + + + + | Component | Value | Ref Range | Performed At | + + + + + | CRP | 5.1 (H)Comment: Testing | <0.5 mg/dL | [facility] | | | performed at [facility], [address] | | LABORATORY | | | [facility], | | | | | [place] [address] | | | + + + + + + + | Specimen | + + | Blood | + + + + + + + | Performing | Address | City/State/Zipcode | Phone Number | | Organization | | | | + + + + + | [facility] | [address] | [place] [address] | [phone] | | LABORATORY | Blvd[address] | | | + + + + + hCG, serum, qualitative (05/28/2018 9:23 AM) + + + + + | Component | Value | Ref Range | Performed At | + + + + + | TEST,SERUM | NEGATIVEComment: Testing | NEGATIVE | [facility] | | | performed at [facility], [address] | | LABORATORY | | | [address], | | | | | [place] [address] | | | + + + + + + + | Specimen | + + | Blood | + + + + + + + | Performing | Address | City/State/Zipcode | Phone Number | | Organization | | | | + + + + + | [facility] | [address] | [place] [address] | [phone] | | LABORATORY | Blvd[address] | | | + + + + + TSH (05/28/2018 9:23 AM) + + + + + | Component | Value | Ref Range | Performed At | + + + + + | TSH | 1.270Comment: Testing | 0.450 - 5.100 uIU/mL | [facility] | | | performed at [facility], [address] | | LABORATORY | | | [address], | | | | | [place] [address] | | | + + + + + + + | Specimen | + + | Blood | + + + + + + + | Performing | Address | City/State/Zipcode | Phone Number | | Organization | | | | + + + + + | [facility] | [address] | [place] [address] | [phone] | | LABORATORY | [address]vd[address] | | | + + + + + Pathology cytology - fluid (05/28/2018 8:00 AM) + + | Specimen | + + | Body Fluid | + + + + + | Narrative | Performed At | + + + | ORDERING PHYSICIAN: Aneudy Hunter MD PATIENT NAME: | MOLLY | | DARA [...] PERFORMING LABORATORY: Technical preparation was performed by [employer] | | | [facility], [address] [place] [address] | | | (Cushion Builder: Matt Claudio D.O.; IA#: [id number]). | | | Professional interpretation was performed by [facility], | | | [facility], [address] [place] [id number] | | | (Cushion Builder: Daniel Larson M.D.; MIRNA#: [id number]).6 | | | Diagnostician: Marie BROOKS ([facility]) Angle Furnaceman | | | Diagnostician: Anahy Da Silva MD Pathologist Electronically Signed | | | 05/30/2018 | | + + + + +---------+ + + | Performing | Address | City/State/Zipcode | Phone Number | | Organization | | | | + +---------+ + + | [facility] | | | | + +---------+ [...] + + + | [facility] | [address] | [place] [address] | [phone] | | LABORATORY | Blvd[address] | | [...] performed at | | | | | [facility], [address] | | | | | [place] | | | | | [address] | | | + + + + + + + + + + | Performing | Address | City/State/Zipcode | Phone Number | | Organization | | | | + + + + + | [facility] | [address] | [place] [address] | [phone] | | LABORATORY | [address] | | | + + + + + Echo cardiac adult complete (05/27/2018 12:01 PM) + +---------+ + + | Component | Value | Ref Range | Performed At | + +---------+ + + | LV EF | 25 (LL) | 50 - 70 % | [facility] | | | | | [facility] | + +---------+ + + + + + | Impressions | Performed At | + + + | 1. Sinus rhythm. 2. A 2-dimensional transthoracic echocardiogram | [facility] | | with m-mode, spectral and color [...] valve is normal. 18. | | | Yrpz-yb-upbrtckt eccentric mitral regurgitation is present. 19. | [...] DARA LOUISE Date of : 1995 | [facility] | | Performing Physician: Robel De La [...] valve is normal. 18. | | | Cfxi-jq-bllhdjkq eccentric mitral regurgitation is present. 19. | [...] is | | | normal. Mitral Valve: Beuw-sw-izhtrksw eccentric mitral | | | regurgitation is [...] TR Vmax: 2.74 m/s | | | Recordist: MOO Authenticated by: Robel Yusuf MD Report | | | Date/Time: 05-27-2018 13:59:57 | | + + + + + | Procedure Note | + + | Cedric, Rad Results In - 05/27/2018 2:00 PM PDT Patient Name: Amira LOUISE | | : 1995Accession: [id number] Physician: Robel Yusfu | | MD INDICATIONS S | | [...] aortic stenosis.17. The mitral valve is normal.18. Nsvs-de-bwpikciu | | eccentric mitral regurgitation is present.19. [...] | | arch are normal.26. No mass skraqumrbx03. No clot visualizedFINDINGS--------ECG rhythm: | | Sinus [...] The mitral valve is normal. Mitral Valve: Qqeh-bm-fsytoifu eccentric mitral | | regurgitation is present.Tricuspid [...] (A-L): 30.43 | | ml/m2LAAs A2C: 20.97 yo4RTNHI A-L A2C: 65.71 mlLALs A2C: 5.68 cmLAAs A4C: 19.94 | | pa7ELNVQ A-L A4C: 60.20 mlLALs A4C: 5.60 cmTAPSE: 1.58 cmHR: 79.62 BPMAV maxPG: | | 6.06 mmHgAV meanP.71 mmHgAV Vmax: 1.23 m/Elizabeth Vmean: 0.92 m/Elizabeth VTI: 20.07 | | cmAVA Vmax: 1.74 cm2AVA (VTI): 1.93 jw5CFYQ Vmax: 0.00 cm2/m2AVAI (VTI): 0.00 | | [...] The mitral valve is | | normal.18. Mlib-ti-zvucfleb eccentric mitral regurgitation is present.19. Severe | [...] and aortic arch are normal.26. No mass botcvhgvgq45. No clot visualized | |LVIDd: 4.99 cm [...] |TR Vmax: 2.74 m/s | | | |Recordist: MW | |Authenticated by: Robel Yusfu MD | |Report Date/Time: 05-27-2018 13:59:57 | [...] The mitral valve is normal. | |18. Bdid-ks-hmyzqcfi eccentric mitral regurgitation is present. | |19. [...] [facility] | [address] | [place] [address] | | + + + + + [...] + + + + + | [facility] | [address] | [place] [address] | | + + + + + Phosphorus 05/27/2018 4:25 AM) + + + + + | Component | Value | Ref Range | Performed At | + + + + + | PHOSPHORUS | 8.0 (H)Comment: Testing | 2.3 - 4.8 mg/dL | [facility] | | | performed at [facility], [address] | | LABORATORY | | | [address], | | | | | [place] [address] | | | + + + + + + + | Specimen | + + | Blood | + + + + + + + | Performing | Address | City/State/Zipcode | Phone Number | | Organization | | | | + + + + + | [facility] | [address] | [place] [address] | [phone] | | LABORATORY | Blvd. | | [...] | 0 - 100 pg/mL | [facility] | | PEPTIDE | Testing performed at | | | | | [facility];[address] | | | | | [address];[place] [address] | | | + + + + + + + | Specimen | + + | Blood | + + + + + + + | Performing | Address | City/State/Zipcode | Phone Number | | Organization | | | | + + + + + | [facility] | [address] | [place] [address] | | + + + + + Magnesium (05/27/2018 4:25 AM) + + + + + | Component | Value | Ref Range | Performed At | + + + + + | MAGNESIUM | 2.7 (H)Comment: Testing | 1.7 - 2.4 mg/dL | [facility] | | | performed at [facility], [address] | | LABORATORY | | | [facility], | | | | | [place] [address] | | | + + + + + + + | Specimen | + + | Blood | + + + + + + + | Performing | Address | City/State/Zipcode | Phone Number | | Organization | | | | + + + + + | [facility] | [address] [place] [address] | [place] [address] | [phone] | | LABORATORY | [address]vd[address] | | [...] [address] | | | | | [facility], | | | | | [place] [address] | | | + + + + + + + | Specimen | + + | Blood | + + + + + + + | Performing | Address | City/State/Zipcode | Phone Number | | Organization | | | | + + + + + | [facility] | [address] | [place] [address] | [phone] | | LABORATORY | Blvd[address] | | [...] | | | | | L, [address] | | | | | [place] | | | | | [address] | | | + + + + + + + | Specimen | + + | Nasopharynx/Orophary | | nx | + + + + + + + | Performing | Address | City/State/Zipcode | Phone Number | | Organization | | | | + + + + + | [facility] | [address] | [place] [address] | [phone] | | LABORATORY | [address]vd[address] | | | + + + + + MRSA by PCR (05/26/2018 6:06 PM) + + + + + | Component | Value | Ref Range | Performed At | + + + + + | SOURCE | NARES(NOSE) | | [facility] | + + + + + | MRSA PCR | NEGATIVEComment: Testing | NEGATIVE | [facility] | | | performed at [facility];[address] | | | | | [address];[place] | | | | | [address] | | | + + + + + + + | Specimen | + + | Nasopharyngeal - | | Nares(Nose) | + + + + + + + | Performing | Address | City/State/Zipcode | Phone Number | | Organization | | | | + + + + + | [facility] | [address] | [place] [address] | | + + + + + PROCALCITONIN (05/26/2018 5:27 PM)Only the most recent of 2 results within the time period is included. + + + + + | Component | Value | Ref Range | Performed At | + + + + + | PROCALCITONIN | 0.76 (H)Comment: | <0.5 ng/mL | [facility] | | | INTERPRETIVE [...] performed | | | | | at [facility];[address] | | | | | [address];[place] [address] | | | + + + + + + + + + + | Performing | Address | City/State/Zipcode | Phone Number | | Organization | | | | + + + + + | [facility] | [address] | [place] [address] | | + + + + + [...] + + + + + | [facility] | [address] | [place] [address] | | + + + + + [...] | STAIN PERFORMED ON | | [facility] | | | CYTOSPIN | | | + + + + + | GRAM STAIN | WBC'S SEEN | | [facility] | + + + [...] + + + | [facility] | [address] | [place] [address] | [phone] | | LABORATORY | [address]vd[address] | | | + + + + + | [facility] | [address] | [place] [address] | | + + + + + Pathologist consult (05/26/2018 2:12 PM) + + + + + | Component | Value | Ref Range | Performed At | + + + + + | Pathologist Consult | Comment: Review of | | [facility] | | | pleural [...] performed | | | | | at [facility];[address] | | | | [address];[place] [address] | | | + + + + + + + + + + | Performing | Address | City/State/Zipcode | Phone Number | | Organization | | | | + + + + + | [facility] | [address] | [place] [address] | | + + + + + Cell count, Body Fluid (05/26/2018 2:12 PM) + + + + + | Component | Value | Ref Range | Performed At | + + + + + | FLUID TYPE | PLEURAL FLUID | | [facility] | + + + + + | COLOR | SAMMIE | | [facility] | + + + + + | APPEARANCE | CLOUDY | | [facility] | + + + + + | RBC'S | 3,000Comment: CORRECTED | /mm3 | [facility] | | | RESULTS CALLED TO | | | | | ELSA IN ED AT 1705 | | | | | BY LGJCORRECTED ON 05/26 | | | | | AT 1702: PREVIOUSLY | | | | | REPORTED <[id number] | | | + + + + + | TOTAL NUCLEATED | 253Comment: CORRECTED | /mm3 | [facility] | | CELLS | [...] COUNTED | 100Comment: Testing | | [facility] | | | performed at [facility];[address] | | | | | [address];[place] | | | | | [address] | | | + + + + + + + | Specimen | + + | Body Fluid - Lung, | | Right Lower Lobe | + + + + + + + | Performing | Address | City/State/Zipcode | Phone Number | | Organization | | | | + + + + + | [facility] | [address] | [place] [address] | | + + + + + Total Protein, Body Fluid (05/26/2018 2:12 PM) + + + + + | Component | Value | Ref Range | Performed At | + + + + + | FLUID TOTAL PROTEIN | 4.2Comment: This is not | g/dL | [facility] | | | a regional property manager validated | | LABORATORY | | | sample type for this | | | | | method. No reference | | | | | ranges have been | | | | | established.Testing | | | | | performed at [facility], [address] | | | | | [address], | | | | | [place] [address] | | | + + + + + | FLUID TP SOURCE | PLEURAL FLUIDComment: | | [facility] | | | Testing performed at | | | | | [facility] [place] | | | | | [place] [address] | | | + + + + + + + | Specimen | + + | Body Fluid - Lung, | | Right Lower Lobe | + + + + + + + | Performing | Address | City/State/Zipcode | Phone Number | | Organization | | | | + + + + + | [facility] | [address] | [place] [address] | | + + + + + | [facility] | [address] | [place] [address] | [phone] | | LABORATORY | [address] | | | + + + + + Albumin, Body Fluid (05/26/2018 2:12 PM) + + + + + | Component | Value | Ref Range | Performed At | + + + + + | FLUID ALBUMIN | 2.3Comment: This is not | g/dL | [facility] | | | a regional property manager validated | | LABORATORY | | | sample type for this | | | | | method. No reference | | | | | ranges have been | | | | | established.Testing | | | | | performed at [facility], [address] | | | | [facility], | | | | | [place] [address] | | | + + + + + + + | Specimen | + + | Body Fluid - Lung, | | Right Lower Lobe | + + + + + + + | Performing | Address | City/State/Zipcode | Phone Number | | Organization | | | | + + + + + | [facility] | [address] | [place] [address] | [phone] | | LABORATORY | [address] | | | + + + + + pH, Body Fluid (05/26/2018 2:12 PM) + + + + + | Component | Value | Ref Range | Performed At | + + + + + | FLUID PH | 7.45Comment: Testing | | [facility] | | | performed at [facility] [place] | | | | | [address];[place], [place] | | | | | [address] | | | + + + + + + + | Specimen | + + | Body Fluid - Lung, | | Right Lower Lobe | + + + + + + + | Performing | Address | City/State/Zipcode | Phone Number | | Organization | | | | + + + + + | [facility] | [address] | [place] [address] | | + + + + + Cardiac Panel (05/26/2018 12:14 PM) + + + + + | Component | Value | Ref Range | Performed At | + + + + + | WBC | 5.73 | 3.80 - 11.00 K/uL | [facility] | + + + + + | RBC | 3.32 (L) | 3.70 - 5.10 M/uL | [facility] | + + + + + | HGB | 12.1 | 11.3 - 15.5 g/dL | [facility] | + + + + + | HCT | 36.1 | 34.0 - 46.0 % | [facility] [...] (H) | 37 - 53 fl | [facility] | + + + + + | PLT | 151 | 150 - 400 K/uL | [facility] | + + + + + | MPV | 10.1 | fl | [facility] | + + + + [...] 1.09 | 1.00 - 3.90 K/uL | [facility] | + + + + + | MONOCYTES ABS | 0.37 | 0.00 - 0.80 K/uL | [facility] | + + + + + | EOSINOPHILS ABS | 0.06 | 0.00 - 0.50 K/uL | [facility] | + + + + + | BASOPHILS ABS | 0.06 | 0.00 - 0.10 K/uL | [facility] | + + + + + | MORPHOLOGY | 2+Comment: MACRO | | [facility] | + + + + + | Platelet Estimate | ADEQUATE | | [facility] | + + + + + | SODIUM | 140 | 135 - 145 mmol/L | [facility] | + + + [...] 2.9 | 1.3 - 4.9 g/dL | [facility] | + + + + + | A/G | 1.5 | 1.0 - 2.4 | [facility] | + + + + + | TBIL | 1.1 | 0.1 - 1.5 mg/dL | [facility] | + + + + + | ALK PHOS | 120 (H) | 35 - 115 U/L | [facility] | + + + + + | AST | 82 (H) | 10 - 45 U/L | [facility] | + + + + + | ALT | 64 | 10 - 65 U/L | [facility] | + + + + + | EGFR | 6 (L)Comment: GFR <60: | >60 mL/min/1.73m2 | [facility] | | | CHRONIC [...] | 30 - 240 U/L | [facility] | + + + + + | INR | 1.6Comment: REFERENCE | | [facility] | | | RANGE:0.9 [...] | 23 - 32 seconds | [facility] | + + + + + | MMB | 7.8 (H) | 0.5 - 3.6 ng/mL | [facility] | + + + + + | CK-MB Index | 2.7Comment: CK INDEX | | [facility] | | | INTERPRETATION: [...] | | | performed at [facility] [place] | | | | | [address];[place] | | | | | [address] | | | + + + + + + + + + + | Performing | Address | City/State/Zipcode | Phone Number | | Organization | | | | + + + + + | [facility] | [address] | [place] [address] | | + + + + + Thoracentesis (05/26/2018 12:01 PM) + + + | Narrative | Performed At | + + + | Aneudy Hunter MD 05/26/2018 4:23 PM Thoracentesis | | | Date/Time: 05/26/2018 1:24 PM Performed by: ANEUDY UHNTER | | | Authorized by: ANEUDY HUNTER [...] space: 4th Puncture | | | method: [id number] catheter Ultrasound guidance: yes | | | [...] perforation, infection and | | | pain [place] protocol: Imaging studies available: yes | | [...] Performed At | + + + | [id number] Criteria Met 2 in 2 | ED [...] (12 mo.) Facility Visits Low Acuity [facility] | | | [facility] 1 0 [facility] 5 0 Total 6 0 | | | Note: Visits indicate total known visits. Medicaid Low Acuity Dx | | | are the number of primary diagnoses on the Medicaid's Low Acuity dx | | | list. Recent Emergency Department Visit Summary Date Facility | | | [facility] State Type Diagnoses or Chief Complaint May 26, 2018 [facility] | | | [facility] [place] Emergency Chest pain, unspecified | | | May 26, 2018 [facility] [place] Emergency Chief | | | Complaint: FLU SYMPTOMS May 25, 2018 [facility] [place] | | | Emergency Chief Complaint: SOB/COUGH May 10, 2018 [facility] . | | | [place] [...] | | | disease Feb 14, 2018 [facility] Emergency | | | Functional dyspepsia Other ascites Epigastric pain | | | Allergy status to narcotic agent status Radiographic dye | | | allergy status Nicotine dependence, unspecified, uncomplicated | | | Other senior care (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 Sep 16, 2017 [facility] | | | [place] Emergency Chronic kidney disease, | | | unspecified Dependence on renal dialysis Pain, | | | unspecified Allergy status to narcotic agent status | | | Nicotine dependence, unspecified, uncomplicated Other senior care | | | (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 Elevated [...] Portal This patient has registered at the [facility] | | | [facility] Emergency Department For more information visit: | | | [email or web address] | | | [email or web address] [facility] PLEASE NOTE: 1. Any care recommendations [...] | | completeness of information provided. 2019 [employer] | | | [employer] - [email or web address] | | + + + + + | Procedure Note | + + | Interface, Lab - 05/26/2018 12:00 PM PDT Formatting of this note may be different | | from the original.[id number] [id number] Met 2 in 2Security and | | SafetyNo recent Security Events currently on fileED Care GuidelinesThere are currently | | no ED Care Guidelines for this patient. Please check your facility's medical records | | system.Prescription Drug Report (12 Mo.)PDMP query found no report.E.D. Visit Count (12 | | mo.)Facility Visits Low Acuity [facility] [address] [facility] | | Hospital 5 0 Total 6 0 Note: Visits indicate total known visits. Medicaid Low Acuity Dx | | are the number of primary diagnoses on the Medicaid's Low Acuity dx list. Recent | | Emergency Department Visit SummaryDate Facility City State Type Diagnoses or Chief | | [facility] [place] [place] [facility] Chest pain, | | unspecified May 26, 2018 [facility] [place] [place] Emergency Chief Complaint: FLU | | SYMPTOMS May 25, 2018 [facility] [place] Emergency Chief Complaint: | | SOB/COUGH May 10, 2018 [facility] [place] Emergency Epistaxis Other long [...] stage renal disease Feb 14, 2018 [facility] | | 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 Any [...] to the | | limitations of applicable [employer] Policies. 3. You should consult directly with | | the organization that provided a care guideline or other clinical history with any | | questions about additional information or accuracy or completeness of information | | provided.2019 [employer]. 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 Emergency | | Functional dyspepsia | | Other ascites | | Epigastric pain | | Allergy status to narcotic agent status | | Radiographic dye allergy status | | Nicotine dependence, unspecified, uncomplicated | | Other senior care (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 | | | |Sep 16, 2017 [facility] Emergency | | Chronic kidney disease, unspecified | | Dependence on renal dialysis | | Pain, unspecified | | Allergy status to narcotic agent status | | Nicotine dependence, unspecified, uncomplicated | | Other senior care (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 | | Elevated blood-pressure [...] providers on record at this time. | |[employer] Portal | |This patient has registered at the [facility] Emergency Department | |For more information visit: [email or web address] | |andnbsp PLEASE NOTE: | | 1. Any care recommendations and other clinical information are provided as guidelines or for historical purposes only, and providers should exercise their own clinical judgment whe n providing care. | | 2. You may only use this information for purposes of treatment, payment or health care o perations activities, and subject to the limitations of applicable [employer] Policies. | | 3. You should consult directly with the organization that provided a care guideline or o ther clinical history with any questions about additional information or accuracy or complet eness of information provided. | | | |2019 [employer]. - [email or web address] | + + + +---------+ + + [...] +------+-------+ + | MEDICARE | MEDICA | [id number] | | | [address] | | | RE | | | | [place] [address] | | | IP-OP | | | | | + +--------+ +------+-------+ + | MEDICAID | MEDICA | [id number] | | | [address] | | | ID | | | | [place] | | | [place] | | | | [address] | + +--------+ +------+-------+ + + +--------+ +--------+ + + | Guarantor Name | Accoun | Relation to | Date | Phone | Billing Address | | | t Type | Patient | of | | | | | | | | | | + +--------+ +--------+ + + | DARA LOUISE | Person | Self [birth year] | Home: | [address] | | | al/Fam | | 1994 | [phone] | [place] | | | [place] | | | [phone] | [phone] | + +--------+ +--------+ + +
--- OUTSIDE RECORDS SUMMARY | ~2018-06-12 | XMS | Encounter Summary ---
Demographics + + + | Address | [address] | | | [place] [address] | + + + | Home Phone [...] Author | [facility] | | | and [place] | + + + | Organization | [facility] | | [...] | | + + +---------+ + | Tahnia Mallory | ECON | Unknown | | + + +---------+ + Care Team Providers + +------+ + | Care Pulley Maintainer Name | Role | Phone | + [...] | | KIDNEY TRANSPLANT | [address] [place], | | | | | [address] [place] | [place] [address] | | | | | [address] [place] | [phone] | | | | | [address] | | | | | | [phone] | | | +--------+ + + + [...]
--- OUTSIDE RECORDS SUMMARY | ~2018-06-12 | XMS | Clinical Summary ---
Demographics + + + | Address | [address] | | | [place] [address] [...] | | | | | [place] [address] | | + + + + + | Thania Mallory | ECON | [address] | | | | | [place] [address] | | + + + + + | Deidra Weldon | ECON | [address] | | | | | [place] | | | | | [address] | | + + + + + Care Team Providers + +------+ + | Care Formula Clerk Name | Role | Phone | + +------+ + | Jonathan Alonso MD | PP | | + +------+ + Source Comments DANILO is fully live on both EpicCare Ambulatory and EpicCare InPatient.[facility] Allergies + + + + [...] | | | | | | [place], [place] | | | | | | [address] | | | | | | [phone] | | | | | | | [...] | re | [address] | [place] [address] | | | B | | | | | + +--------+ +--------+ + + | REFRACTORY SPECIALIST MEDICAID | REFRACTORY SPECIALIST | xxxxxxxx | Medica | | | | | [place] | | id | | | | | [place] | | | | | + +--------+ +--------+ + + | MEDICARE RENAL | MEDICA | xxxxxxxxxx | Agency | | RENAL DEPT [id number] | | RECIPIENT EVAL | RE | | | | [place] [address] | | | RENAL | | | [...] | | al/Fam | | 1994 | [phone] | [address] [place] | | | [place] | | | [address]: | [address] | | | | | | | | | | | | | [phone] | | | | | | | [address] | | + +--------+ +--------+ + + | CORY ALVES | Kisha | Mother | [birth year] | Home: | [address] | | | l | | [phone] | [phone] | [address] [place] | | | [place] | | | [address] | [phone] | | | g | | | | | + +--------+ +--------+ + +
--- OUTSIDE RECORDS SUMMARY | ~2018-06-12 | XMS | Clinical Summary ---
Demographics + + + | Address | [facility] [address] | | | [place] [address] | + + + | Home Phone [...] + + + | Author | [facility] | + + + | Organization | [facility] | + + + | Address [...] | | | | | [place] [address] | | + + + + + | Wilson De Guzman | ECON | Unknown | | + + + + + Care Team Providers + +------+ + | Care Supervisor Cutting Department Name | Role | Phone | + [...] | Acute systolic CHF (congestive heart failure) ([facility]) | 05/28/2018 | + + + [...] | | | | | | hemodialysis ([facility]); | | | | | | Hyperkalemia; | | | | | | Hyperphosphatemia; | | | | | | At high risk for | | | | | | electrolyte | | | | | | imbalance; Acute | | | | | | systolic CHF | | | | | | (congestive heart | | | | | | failure) ([facility]); | | | | | | Hypoalbuminemia; | | | | | | Anemia in ESRD | | | | | | (end-stage renal | | | | | | disease) ([facility]); ESRD | | | | | [...] | | | MRN: | | | [id number] | | | OM: | | | [...] | | went to | | | [facility] | | | with | | | increasing | | | shortness | | | of breath | | | found to | | | have right | | | pleural | | | effusion | | | who was | | | transferred | | | to [facility] | | | Hospital | | | [...] | | Body Fluid | | | [[id number]] | | | Collected: | | | [...] | | Body Fluid | | | [[id number]] | | | Collected: | | | [...] | | | stain | | | [[id number]] | | | Collected: | | | [...] | | | fluid | | | [[id number]] | | | Collected: | | | [...] | | | fluid | | | [[id number]] | | | Collected: | | | [...] | | | Bharat, | | | [id number] | | [address], [place] | | | [address] | | | n [place] | | | [id number] | | | [phone] 1 | | | weekLindsay | | | Mahmood, | | | [id number] | | | GOETHALS | | | DRSTE | | | [place] | | | [place] | | | [id number] | | | [phone] 1 | | | weekJennife | | | r Ibarra, | | | [address] | | | [address] | | | [address] | | | [place] | | | [phone] | | | [phone] 1 | | [...] | Left: | SYNOVIS | | | [id number] | | 0.8x8cm - [id number]: | | Arm | | | | [...] | | | COVIDIEN | | | [id number] | | 23cmExplanted: Qty: 1 on | | | | | | 3404 / | | 04/08/2014 | | | | | | | | | | | | | | /[id number] | | | | | | | [...] | + +--------+ + + + | [facility] CARD PANEL W/O | STAT | 05/26/2018 [...] performed | | | | | at [facility], [address] | | | | [address], | | | | | [place] [address] | | | | |Testing performed at [facility], [address] [place] [address] | | | | | | | | + + + + + + + | Specimen | + + | Blood | + + + + + + + | Performing | Address | City/State/Zipcode | Phone Number | | Organization | | | | + + + + + | [facility] | [address] | [place] [address] | [phone] | | LABORATORY | Blvd. | | [...] | | | | | performed at [facility], [address] | | | | | [facility], | | | | | [place] [address] | | | + + + + + + + | Specimen | + + | Blood | + + + + + + + | Performing | Address | City/State/Zipcode | Phone Number | | Organization | | | | + + + + + | [facility] | [address] | [place] [address] | [phone] | | LABORATORY | Blvd. | | [...] | | antibiotic" for pneumonia at [facility]. Was throwing up & could not [...] | + + + + + | [facility] | [address] | [place] [address] | | + + + + + Cholesterol, body fluid (05/29/2018 12:56 PM) + + + + + | Component | Value | Ref Range | Performed At | + + + + + | FLUID CHOLESTEROL | 56Comment: This is not a | mg/dL | [facility] | | | manager lighting validated | | LABORATORY | | | sample type for this | | | | | method. No reference | | | | | ranges have been | | | | | established.Testing | | | | | performed at [facility], [address] | | | | | [address], | | | | | [place] [address] | | | + + + + + + + | Specimen | + + | Body Fluid - | | Pleural, Right | + + + + + + + | Performing | Address | City/State/Zipcode | Phone Number | | Organization | | | | + + + + + | [facility] | [address] | [place] [address] | [phone] | | LABORATORY | [address] | | [...] + + + | [facility] | [address] | [place] [address] | [phone] | | LABORATORY | Blvd. | | | + + + + + Lactate dehydrogenase, body fluid (05/29/2018 12:56 PM) + + + + + | Component | Value | Ref Range | Performed At | + + + + + | FLUID LDH | 151Comment: This is not | U/L | [facility] | | | a manager lighting validated | | LABORATORY | | | sample type for this | | | | | method. No reference | | | | | ranges have been | | | | | established.Testing | | | | | performed at [facility], [address] | | | | | [address], | | | | | [place] [address] | | | + + + + + + + | Specimen | + + | Body Fluid - | | Pleural, Right | + + + + + + + | Performing | Address | City/State/Zipcode | Phone Number | | Organization | | | | + + + + + | [facility] | [address] | [place] [address] | [phone] | | LABORATORY | [address] | | [...] | | space is punctured with an 8-Mohawk thoracentesis catheter. Fluid is | | | [...] the pleural space is punctured with an 8-Mohawk | | thoracentesis catheter. Fluid is aspirated [...] | + + + + + | [facility] | [address] | [place] [address] | | + + + + + APTT (05/29/2018 8:52 AM) + + + + + | Component | Value | Ref Range | Performed At | + + + + + | APTT | 29Comment: Testing | 23 - 32 seconds | [facility] | | | performed at [facility];[address] | | | | | [address];[place] | | | | | [address] | | | + + + + + + + | Specimen | + + | Blood | + + + + + + + | Performing | Address | City/State/Zipcode | Phone Number | | Organization | | | | + + + + + | [facility] | [address] | [place] [address] | | + + + + + Protime-INR (05/29/2018 8:52 AM) + + + + + | Component | Value | Ref Range | Performed At | + + + + + | INR | 1.5Comment: REFERENCE | | [facility] | | | RANGE:0.9 - [...] – [place];[address] | | | | | [address];[place] | | | | | [address] | | | + + + + + + + | Specimen | + + | Blood | + + + + + + + | Performing | Address | City/State/Zipcode | Phone Number | | Organization | | | | + + + + + | [facility] | [address] | [place] [address] | | + + + + + [...] | + + + + + | [facility] | [address] | [place] [address] | | + + + + + Troponin I (05/28/2018 1:59 PM)Only the most recent of 2 results within the time period is included. + + + + + | Component | Value | Ref Range | Performed At | + + + + + | TROPONIN I | 0.037Comment: 0.04 | 0.00 - 0.04 ng/mL | [facility] | | | ng/mL or [...] performed at | | | | | [facility];[address] | | | | | [address];[place] [address] | | | + + + + + + + | Specimen | + + | Blood | + + + + + + + | Performing | Address | City/State/Zipcode | Phone Number | | Organization | | | | + + + + + | [facility] | [address] | [facility] [place] [place] [address] | | + + + + + [...] performed at | | | | | [facility], [address] | | | | | [place] | | | | | [address] | | | + + + + + + + | Specimen | + + | Blood | + + + + + + + | Performing | Address | City/State/Zipcode | Phone Number | | Organization | | | | + + + + + | [facility] | [address] | [place] [address] | [phone] | | LABORATORY | Blvd. | | [...] | | | | | performed at [facility], [facility] [address] | | | | | [facility], | | | | | [place] [address] | | | + + + + + + + | Specimen | + + | Blood | + + + + + + + | Performing | Address | City/State/Zipcode | Phone Number | | Organization | | | | + + + + + | [facility] | [address] [place] [address] | [place] [address] | [phone] | | LABORATORY | [address]. | | | + + + + + Renal function panel (05/28/2018 12:09 PM) + + + + + | Component | Value | Ref Range | Performed At | + + + + + | SODIUM | 141 | 135 - 145 mmol/L | [facility]ORAT[facility] | + + + + + [...] 9.1 | 8.5 - 10.5 mg/dL | [facility] | + + + + + | Albumin | 3.6 | 3.6 - 5.0 g/dL | [facility] | + + + + + | PHOSPHORUS | 6.3 (H) | 2.3 - 4.8 mg/dL | [facility] | + + + + + | EGFR | 6 (L)Comment: GFR <60: | >60 mL/min/1.73m2 | [facility] | | | CHRONIC KIDNEY [...] the | | | | | MDRD NCMS traceable | | | | | equation.Testing | | | | | performed at [facility];[address] | | | | | [address];[place] | | | | | [address] | | | + + + + + + + | Specimen | + + | Blood - Blood | + + + + + + + | Performing | Address | City/State/Zipcode | Phone Number | | Organization | | | | + + + + + | [facility] | [address] | [place] [address] | | + + + + + [...] + + + + | Calculated P [place] | 24 | degrees | [facility] | + + + + + | Calculated R [place] | 24 | degrees | [facility] | + + + + + | Calculated T [place] | 103 | degrees | [facility] [...] | + + + + + | [facility] | [address] | [facility] [address] | | + + + + + Sedimentation rate, automated (05/28/2018 9:23 AM) + + + + + | Component | Value | Ref Range | Performed At | + + + + + | ESR | 2Comment: Testing | 0 - 20 mm/Hr | [facility] | | | performed at [facility], [address] | | LABORATORY | | | [address], | | | | | [place] [address] | | | + + + + + + + | Specimen | + + | Blood | + + + + + + + | Performing | Address | City/State/Zipcode | Phone Number | | Organization | | | | + + + + + | [facility] | [address] | [place] [address] | [phone] | | LABORATORY | [address]vd[address] | | | + + + + + C-reactive protein (05/28/2018 9:23 AM) + + + + + | Component | Value | Ref Range | Performed At | + + + + + | CRP | 5.1 (H)Comment: Testing | <0.5 mg/dL | [facility] | | | performed at [facility], [address] | | LABORATORY | | | [facility], | | | | | [place] [address] | | | + + + + + + + | Specimen | + + | Blood | + + + + + + + | Performing | Address | City/State/Zipcode | Phone Number | | Organization | | | | + + + + + | [facility] | [address] | [place] [address] | [phone] | | LABORATORY | [address]vd[address] | | | + + + + + hCG, serum, qualitative (05/28/2018 9:23 AM) + + + + + | Component | Value | Ref Range | Performed At | + + + + + | TEST,SERUM | NEGATIVEComment: Testing | NEGATIVE | [facility] | | | performed at [facility], [address] | | LABORATORY | | | [address], | | | | | [place] [address] | | | + + + + + + + | Specimen | + + | Blood | + + + + + + + | Performing | Address | City/State/Zipcode | Phone Number | | Organization | | | | + + + + + | [facility] | [address] | [place] [address] | [phone] | | LABORATORY | [address]vd[address] | | | + + + + + TSH (05/28/2018 9:23 AM) + + + + + | Component | Value | Ref Range | Performed At | + + + + + | TSH | 1.270Comment: Testing | 0.450 - 5.100 uIU/mL | [facility] | | | performed at [facility], [address] | | LABORATORY | | | [address], | | | | | [place] [address] | | | + + + + + + + | Specimen | + + | Blood | + + + + + + + | Performing | Address | City/State/Zipcode | Phone Number | | Organization | | | | + + + + + | [facility] | [address] | [place] [address] | [phone] | | LABORATORY | [address]vd[address] | | [...] PERFORMING LABORATORY: Technical preparation was performed by [employer] | | | [employer], [address] [place] [address] | | | (Human Capital Manager: Matt Claudio D.O.; IA#: [id number]). | | | Professional interpretation was performed by [employer], | | | [facility], [address] [place] [phone] | | | (Human Capital Manager: Daniel Larson M.D.; MIRNA#: [id number]).6 | | | Diagnostician: Marie BROOKS ([facility]) [place] | | | Diagnostician: Anahy Da Silva MD Pathologist Electronically Signed | | | 05/30/2018 | | + + + + +---------+ + + | Performing | Address | City/State/Zipcode | Phone Number | | Organization | | | | + +---------+ + + | [facility] | | | | + +---------+ [...] + + + | [facility] | [address] | [place] [address] | [phone] | | LABORATORY | Blvd. | | [...] performed at | | | | | [facility], [address] [facility] | | | | | [place] | | | | | [address] | | | + + + + + + + + + + | Performing | Address | City/State/Zipcode | Phone Number | | Organization | | | | + + + + + | [facility] | [address] | [place] [address] | [phone] | | LABORATORY | [address] | | | + + + + + Echo cardiac adult complete (05/27/2018 12:01 PM) + +---------+ + + | Component | Value | Ref Range | Performed At | + +---------+ + + | LV EF | 25 (LL) | 50 - 70 % | [facility] | | | | | RADIOLOGY | [...] valve is normal. 18. | | | Gvsc-st-gfbvaqbb eccentric mitral regurgitation is present. 19. | [...] valve is normal. 18. | | | Fjvs-ip-hbbqftsp eccentric mitral regurgitation is present. 19. | [...] is | | | normal. Mitral Valve: Azpw-ll-jbdklzzo eccentric mitral | | | regurgitation is [...] 13.50 cm | | | MV A Shhaid: 0.54 m/s MV DecT: 117.65 ms MV E Shahid: 0.80 m/s | | | MV E/A Ratio: 1.46 Septal e': 0.03 m/s Septal E/e': | | | 26.26 Lateral e': 0.04 m/s Lateral E/e': 16.81 RV S': | | | 0.07 m/s TR maxP.08 mmHg TR Vmax: 2.74 m/s | | | Materials Tech: MOO Authenticated by: Robel Yusuf MD Report | | | Date/Time: 05-27-2018 13:59:57 | | + + + + + | Procedure Note | + + | Cedric, Rad Results In - 05/27/2018 2:00 PM PDT Patient Name: Amira LOUISE | | : 1995Accession: [id number] Physician: Robel Yusuf | | MD INDICATIONS [...] aortic stenosis.17. The mitral valve is normal.18. Sjbh-yy-kfnnyagq | | eccentric mitral regurgitation is present.19. [...] | | arch are normal.26. No mass uxluhiddqv36. No clot visualizedFINDINGS--------ECG rhythm: | | Sinus [...] The mitral valve is normal. Mitral Valve: Bzvp-gu-wlbocgre eccentric mitral | | regurgitation is present.Tricuspid [...] (A-L): 30.43 | | ml/m2LAAs A2C: 20.97 fi5MFWSS A-L A2C: 65.71 mlLALs A2C: 5.68 cmLAAs A4C: 19.94 | | rv1REMET A-L A4C: 60.20 mlLALs A4C: 5.60 cmTAPSE: 1.58 cmHR: 79.62 BPMAV maxPG: | | 6.06 mmHgAV meanP.71 mmHgAV Vmax: 1.23 m/Elizabeth Vmean: 0.92 m/Elizabeth VTI: 20.07 | | cmAVA Vmax: 1.74 cm2AVA (VTI): 1.93 sa6LACD Vmax: 0.00 cm2/m2AVAI (VTI): 0.00 | | [...] The mitral valve is | | normal.18. Obhu-kp-uksvrymk eccentric mitral regurgitation is present.19. Severe | [...] and aortic arch are normal.26. No mass jmecfulhjb37. No clot visualized | |LVIDd: 4.99 cm [...] |TR Vmax: 2.74 m/s | | | |Materials Tech: MW | |Authenticated by: Robel Yusuf [...] The mitral valve is normal. | |18. Ganf-pi-znbukwox eccentric mitral regurgitation is present. | |19. [...] [facility] | [address] | [place] [address] | | + + + + + [...] | + + + + + | [facility] | [address] | [place] [address] | | + + + + + Phosphorus 05/27/2018 4:25 AM) + + + + + | Component | Value | Ref Range | Performed At | + + + + + | PHOSPHORUS | 8.0 (H)Comment: Testing | 2.3 - 4.8 mg/dL | [facility] | | | performed at [facility], [address] | | LABORATORY | | | [address], | | | | | [place] [address] | | | + + + + + + + | Specimen | + + | Blood | + + + + + + + | Performing | Address | City/State/Zipcode | Phone Number | | Organization | | | | + + + + + | [facility] | [address] | [place] [address] | [phone] | | LABORATORY | Blvd. | | [...] (H)Comment: | 0 - 100 pg/mL | [facility] | | PEPTIDE | Testing performed at | | | | | [facility];[address] | | | | | [address];[place] [address] | | | + + + + + + + | Specimen | + + | Blood | + + + + + + + | Performing | Address | City/State/Zipcode | Phone Number | | Organization | | | | + + + + + | [facility] | [address] | [place] [address] | | + + + + + Magnesium (05/27/2018 4:25 AM) + + + + + | Component | Value | Ref Range | Performed At | + + + + + | MAGNESIUM | 2.7 (H)Comment: Testing | 1.7 - 2.4 mg/dL | [facility] | | | performed at [facility], [address] | | LABORATORY | | | [facility], | | | | | [place] [address] | | | + + + + + + + | Specimen | + + | Blood | + + + + + + + | Performing | Address | City/State/Zipcode | Phone Number | | Organization | | | | + + + + + | [facility] | [address] [place] [address] | [place] [address] | [phone] | | LABORATORY | Blvd. | | [...] | | | | | performed at [facility], [address] | | | | | [facility], | | | | | [place] [address] | | | + + + + + + + | Specimen | + + | Blood | + + + + + + + | Performing | Address | City/State/Zipcode | Phone Number | | Organization | | | | + + + + + | [facility] | [address] | [place] [address] | [phone] | | LABORATORY | [address]vd[address] | | [...] [place] | | | | | [address] | | | + + + + + + + | Specimen | + + | Nasopharynx/Orophary | | nx | + + + + + + + | Performing | Address | City/State/Zipcode | Phone Number | | Organization | | | | + + + + + | [facility] | [address] | [place] [address] | [phone] | | LABORATORY | [address]vd[address] | | | + + + + + MRSA by PCR (05/26/2018 6:06 PM) + + + + + | Component | Value | Ref Range | Performed At | + + + + + | SOURCE | NARES(NOSE) | | [facility] | + + + + + | MRSA PCR | NEGATIVEComment: Testing | NEGATIVE | [facility] | | | performed at [facility];[address] | | | | | [address];[place] | | | | | [address] | | | + + + + + + + | Specimen | + + | Nasopharyngeal - | | Nares(Nose) | + + + + + + + | Performing | Address | City/State/Zipcode | Phone Number | | Organization | | | | + + + + + | [facility] | [address] | [place] [address] | | + + + + + PROCALCITONIN (05/26/2018 5:27 PM)Only the most recent of 2 results within the time period is included. + + + + + | Component | Value | Ref Range | Performed At | + + + + + | PROCALCITONIN | 0.76 (H)Comment: | <0.5 ng/mL | [facility] | | | INTERPRETIVE | | [...] performed | | | | | at [facility];[address] [facility] | | | | | [address];[place] [address] | | | + + + + + + + + + + | Performing | Address | City/State/Zipcode | Phone Number | | Organization | | | | + + + + + | [facility] | [address] | [place] [address] | | + + + + + [...] + + | [facility] | [address] | [place] [address] | | + + + + + [...] STAIN | STAIN PERFORMED ON | | [facility] | | | CYTOSPIN | | | + + + + + | GRAM STAIN | WBC'S SEEN | | [facility] | + + + + [...] + + + | [facility] | [address] | [place] [address] | [phone] | | LABORATORY | [address]vd[address] | | | + + + + + | [facility] | [address] | [place] [address] | | + + + + + Pathologist consult (05/26/2018 2:12 PM) + + + + + | Component | Value | Ref Range | Performed At | + + + + + | Pathologist Consult | Comment: Review of | | [facility] | | | pleural fluid collected [...] performed | | | | | at [facility];[address] | | | | [address];[place] [address] | | | + + + + + + + + + + | Performing | Address | City/State/Zipcode | Phone Number | | Organization | | | | + + + + + | [facility] | [address] | [place] [address] | | + + + + + Cell count, Body Fluid (05/26/2018 2:12 PM) + + + + + | Component | Value | Ref Range | Performed At | + + + + + | FLUID TYPE | PLEURAL FLUID | | [facility] | + + + + + | COLOR | SAMMIE | | [facility] | + + + + + | APPEARANCE | CLOUDY | | [facility] | + + + + + | RBC'S | 3,000Comment: CORRECTED | /mm3 | [facility] | | | RESULTS CALLED TO | | | | | ELSA IN ED AT 1705 | | | | | BY LGJCORRECTED ON 05/26 | | | | | AT 1702: PREVIOUSLY | | | | | REPORTED <[id number] | | | + + + + + | TOTAL NUCLEATED | 253Comment: CORRECTED | /mm3 | [facility] | | CELLS | RESULTS CALLED [...] CELLS COUNTED | 100Comment: Testing | | [facility] | | | performed at [facility];[address] | | | | | [address];[place] | | | | | [address] | | | + + + + + + + | Specimen | + + | Body Fluid - Lung, | | Right Lower Lobe | + + + + + + + | Performing | Address | City/State/Zipcode | Phone Number | | Organization | | | | + + + + + | [facility] | [address] | [place] [address] | | + + + + + Total Protein, Body Fluid (05/26/2018 2:12 PM) + + + + + | Component | Value | Ref Range | Performed At | + + + + + | FLUID TOTAL PROTEIN | 4.2Comment: This is not | g/dL | [facility] | | | a manager lighting validated | | LABORATORY | | | sample type for this | | | | | method. No reference | | | | | ranges have been | | | | | established.Testing | | | | | performed at [facility], [address] | | | | | [address], | | | | | [place] [address] | | | + + + + + | FLUID TP SOURCE | PLEURAL FLUIDComment: | | [facility] | | | Testing performed at | | | | | [facility];[address] [facility] | | | | | [place] [address] | | | + + + + + + + | Specimen | + + | Body Fluid - Lung, | | Right Lower Lobe | + + + + + + + | Performing | Address | City/State/Zipcode | Phone Number | | Organization | | | | + + + + + | [facility] | [address] | [place] [address] | | + + + + + | [facility] | [address] [facility] | [place] [address] | [phone] | | LABORATORY | [address] | | | + + + + + Albumin, Body Fluid (05/26/2018 2:12 PM) + + + + + | Component | Value | Ref Range | Performed At | + + + + + | FLUID ALBUMIN | 2.3Comment: This is not | g/dL | [facility] | | | a manager lighting validated | | LABORATORY | | | sample type for this | | | | | method. No reference | | | | | ranges have been | | | | | established.Testing | | | | | performed at [facility], [address] | | | | | [facility], | | | | | [place] [address] | | | + + + + + + + | Specimen | + + | Body Fluid - Lung, | | Right Lower Lobe | + + + + + + + | Performing | Address | City/State/Zipcode | Phone Number | | Organization | | | | + + + + + | [facility] | [address] | [place] [address] | [phone] | | LABORATORY | [address] | | | + + + + + pH, Body Fluid (05/26/2018 2:12 PM) + + + + + | Component | Value | Ref Range | Performed At | + + + + + | FLUID PH | 7.45Comment: Testing | | [facility] | | | performed at [facility] | | | | | [address];[place], [place] | | | | | [address] | | | + + + + + + + | Specimen | + + | Body Fluid - Lung, | | Right Lower Lobe | + + + + + + + | Performing | Address | City/State/Zipcode | Phone Number | | Organization | | | | + + + + + | [facility] | [address] | [place] [address] | | + + + + + [...] 12.1 | 11.3 - 15.5 g/dL | [facility] | + + + + [...] (H) | 37 - 53 fl | [facility] | + + + + + | PLT | 151 | 150 - 400 K/uL | [facility] | + + + + + | MPV | 10.1 | fl | [facility] | + + + + + [...] 0.06 | 0.00 - 0.50 K/uL | [facility] | + + + + + | BASOPHILS ABS | 0.06 | 0.00 - 0.10 K/uL | [facility] | + + + + + | MORPHOLOGY | 2+Comment: MACRO | | [facility] | + + + + + | Platelet Estimate | ADEQUATE | | [facility] | + + + + + | SODIUM | 140 | 135 - 145 mmol/L | [facility] | + + + + [...] 2.9 | 1.3 - 4.9 g/dL | [facility] | + + + + + | A/G | 1.5 | 1.0 - 2.4 | [facility] | + + + + + | TBIL | 1.1 | 0.1 - 1.5 mg/dL | [facility] | + + + + + | ALK PHOS | 120 (H) | 35 - 115 U/L | [facility] | + + + + + | AST | 82 (H) | 10 - 45 U/L | [facility] | + + + + + | ALT | 64 | 10 - 65 U/L | [facility] | + + + + + | EGFR | 6 (L)Comment: GFR <60: | >60 mL/min/1.73m2 | [facility] | | | CHRONIC KIDNEY [...] (H) | 30 - 240 U/L | [facility] | + + + + + | INR | 1.6Comment: REFERENCE | | [facility] | | | RANGE:0.9 - [...] 29 | 23 - 32 seconds | [facility] | + + + + + | MMB | 7.8 (H) | 0.5 - 3.6 ng/mL | [facility] | + + + + + | CK-MB Index | 2.7Comment: CK INDEX | | [facility] | | | INTERPRETATION: | | [...] – [place];[address] | | | | | [address];[place] | | | | | [address] | | | + + + + + + + + + + | Performing | Address | City/State/Zipcode | Phone Number | | Organization | | | | + + + + + | [facility] | [address] | [place] [address] | | + + + + + [...] space: 4th Puncture | | | method: [id number]-[id number] catheter Ultrasound guidance: yes | | | [...] Date/Time: 05/26/2018 1:23 PM Performed by: ANEUDY HUTNER | | | Authorized by: ANEUDY HUNTER Consent: Consent | | | obtained: Verbal and written Consent given by: Patient | | | Risks discussed: Bleeding, bowel perforation, infection and | | | pain Edison protocol: Imaging studies available: yes | | [...] Performed At | + + + | [id number] Criteria Met 2 in 2 | ED [...] Count (12 mo.) Facility Visits Low Acuity [facility] | | | [facility] [address] [facility] 5 0 Total 6 0 | | | Note: Visits indicate total known visits. Medicaid Low Acuity Dx | | | are the number of primary diagnoses on the Medicaid's Low Acuity dx | | | list. Recent Emergency Department Visit Summary Date Facility | | | [facility] [place] Type Diagnoses or Chief Complaint May 26, 2018 [facility] | | | [facility] [place] Emergency Chest pain, unspecified | | | May 26, 2018 [facility] [place] Emergency Chief | | | Complaint: FLU SYMPTOMS May 25, 2018 [facility] [place] | | | Emergency Chief Complaint: SOB/COUGH May 10, 2018 [facility] . | | | [facility] [...] | | | disease Feb 14, 2018 [facility] [place] Emergency | | | Functional dyspepsia Other ascites Epigastric pain | | | Allergy status to narcotic agent status Radiographic dye | | | allergy status Nicotine dependence, unspecified, uncomplicated | | | Other half-way (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 Sep 16, 2017 [facility] | | | [place] Emergency Chronic kidney disease, [...] Portal This patient has registered at the [facility] | | | [facility] Emergency Department For more information visit: | | | [email or web address] | | | [email or web address] [...] | | completeness of information provided. 2019 [employer] | | | [employer] - www.[employer] | | + + + + + | Procedure Note | + + | Interface, Lab - 05/26/2018 12:00 PM PDT Formatting of this note may be different | | from the original.[id number] [id number] Met 2 in 2Security and | | SafetyNo recent Security Events currently on fileED Care GuidelinesThere are currently | | no ED Care Guidelines for this patient. Please check your facility's medical records | | system.Prescription Drug Report (12 Mo.)PDMP query found no report.E.D. Visit Count (12 | | mo.)Facility Visits Low Acuity [facility] [address] [facility] [address] | | Hospital 5 0 Total 6 0 Note: Visits indicate total known visits. Medicaid Low Acuity Dx | | are the number of primary diagnoses on the Medicaid's Low Acuity dx list. Recent | | Emergency Department Visit SummaryDate Facility City State Type Diagnoses or Chief | | [facility] [place] [facility] Chest pain, | | unspecified May [...] Nicotine | | dependence, unspecified, uncomplicated Other manager long term care (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 Sep | | 2017 [facility] [place] Emergency Chronic kidney disease, unspecified | | Dependence on renal dialysis Pain, unspecified Allergy status to narcotic agent | | status Nicotine dependence, unspecified, uncomplicated Other manager long term care (current) | | 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 Elevated blood-pressure [...] | Anupam patient has registered at the [facility] Emergency | | Department For more information visit: | | [email or web address] andnbsp | | PLEASE NOTE: 1. Any [...] to the | | limitations of applicable [employer] Policies. 3. You should consult directly with | | the organization that provided a care guideline or other clinical history with any | | questions about additional information or accuracy or completeness of information | | provided.2019 [employer]. - www.[employer] | | Hypertensive heart and chronic kidney disease without heart failure, with stage 5 chroni c kidney disease, or end stage renal disease | | | |Feb 14, 2018 [facility] [place] Emergency | | Functional dyspepsia | | Other ascites | | Epigastric pain | | Allergy status to narcotic agent status | | Radiographic dye allergy status | | Nicotine dependence, unspecified, uncomplicated | | Other half-way (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 | | | |Sep 16, 2017 [facility] [place] Emergency | | Chronic [...] providers on record at this time. | |[employer] Portal | |This patient has registered at the [facility] Emergency Department | |For more information visit: [id number] | |andnbsp PLEASE NOTE: | | 1. Any care recommendations and other clinical information are provided as guidelines or for historical purposes only, and providers should exercise their own clinical judgment whe n providing care. | | 2. You may only use this information for purposes of treatment, payment or health care o perations activities, and subject to the limitations of applicable [employer] Policies. | | 3. You should consult directly with the organization that provided a care guideline or o ther clinical history with any questions about additional information or accuracy or complet eness of information provided. | | | |2019 [employer]. - www.[employer] | + + + +---------+ + + [...] +------+-------+ + | MEDICARE | MEDICA | [id number] | | | [address] | | | RE | | | | [place] [address] | | | IP-OP | | | | | + +--------+ +------+-------+ + | MEDICAID | MEDICA | [id number] | | | [address] | | | ID | | | | [place] | | | [place] | | | | [address] | + +--------+ +------+-------+ + + +--------+ [...] | | al/Fam | | 1994 | [phone] | [place] | | | [place] | | | [phone] | [phone] | + +--------+ +--------+ + +
--- OUTSIDE RECORDS SUMMARY | ~2018-06-12 | XMS | Clinical Summary ---
Demographics + + + | Address | [address] | | | [place] [address] | + + + | Home Phone [...] | | | | | [place] [address] | | + + + + + | Thania Mallory | ECON | [address] | | | | | [place] [address] | | + + + + + | Deidra Weldon | ECON | [address] | | | | | [place] | | | | | [address] | | + + + + + Care Team Providers + +------+ + | Care Accounting System Expert Name | Role | Phone | + +------+ + | Jonathan Alonso MD | PP | | + +------+ + Source Comments DANILO is fully live on both EpicCare Ambulatory and EpicCare InPatient.[facility] Allergies + + + + + + [...] [place] | | | | | | [address] | | | | | | [phone] | | | | | | | [...] | re | [address] | [place] [address] | | | B | | | | | + +--------+ +--------+ + + | BOOSTER OPERATOR MEDICAID | BOOSTER OPERATOR | xxxxxxxx | Medica | | | | | [place]AST[place] | | id | | | | | [place] | | | | | + +--------+ +--------+ + + | MEDICARE RENAL | MEDICA | xxxxxxxxxx | Agency | | RENAL DEPT [id number] | | RECIPIENT EVAL | RE | | | | [place] [address] | | | RENAL | | | [...] | | al/Fam | | 1994 | [phone] | [address] [place] | | | [place] | | | [phone]: | [address] | | | | | | | | | | | | | [phone] | | | | | | | [phone] | | + +--------+ +--------+ + + | CORY ALVES | Kisha | Mother | [birth year]06[birth year] | Home: | [address] # | | | l | | 1899 | [phone] | [address] [place] | | | [place] | | | [address] | [address] | | | g | | | | | + +--------+ +--------+ + +
--- OUTSIDE RECORDS SUMMARY | ~2018-06-12 | XMS | Encounter Summary ---
Demographics + + + | Address | [address] | | | [place] [address] | + + + | Home Phone [...] + | Author | [facility] | | | and Josephana | + + + | Organization | [facility] [...] + +------+ + | Care Business Process Specialist Name | Role | Phone | [...] [address] [place] | [place] [address] | to return call to | | | | [address] [place] | [phone] | complete intake | | | | [address] | | quest.) | | | | [phone] | | | +--------+ + + + [...]
--- OUTSIDE RECORDS SUMMARY | ~2018-06-12 | XMS | Encounter Summary ---
Demographics + + + | Address | [address] | | | [place] [address] | + + + | Home Phone [...] + | Author | [facility] | | | and [place]ana | + + + | Organization | [facility] [...] Providers + +------+ + | Care Loan Consultant Name | Role | Phone | [...] | | KIDNEY TRANSPLANT | [place] [address] [place], | | | | | [address] [place] | [place] [address] | | | | | [address] [place] | [phone] | | | | | [address] | | | | | | [phone] | | | +--------+ + + + [...]
--- OUTSIDE RECORDS SUMMARY | ~2018-06-12 | XMS | Encounter Summary ---
Demographics + + + | Address | [address] | | | [place] [address] | + + + | Home Phone [...] | [facility] | | | and [place] | + + + | Organization | [facility] | | | [...] Providers + +------+ + | Care Cloth Tester Quality Name | Role | Phone | + [...] stage renal | [address] | [address] [place] [address] | | | | | disease) | Shun Griffin | [place] | | | | | (HCC) | [address] | [address] [facility] | | | | | Anemia in | [place], [place] | [place], [place] | | | | | ESRD | [address] | [address] Phone: | | | | | (end-stage | Phone: | [phone] | | | | | renal | [phone] | Fax: | | | | | disease) | Fax: | [phone] | | | | | ([facility]) | [phone] | | | | | | Procedures [...] [address] | [place], [place] [address] | (Primary Dx) | | | | [place] | [place] | | | | | [address] | [address] | | | | | [phone] | | | +--------+ + + + [...] Will recheck her in 2 weeks. : [place] Fina Alonso MD, PhD documented in this e ncounter Plan of Treatment Not on filedocumented as of this encounter Visit Diagnoses + + | Diagnosis | + + | ESRD (end stage renal disease) ([facility]) - Primary End stage renal disease | + + documented in this encounter"
--- OUTSIDE RECORDS SUMMARY | ~2018-06-12 | XMS | Encounter Summary ---
Demographics + + + | Address | [address] | | | [place] [address] | + + + | Home Phone [...] + + + | Author | [employer] | + + + | Organization | [facility] [employer] | + + + | Address [...] | | | | | [place] [address] | | + + + + + | Wilson De Guzman | ECON | Unknown | | + + + + + Care Team Providers + +------+ + | Care Publishing Director Name | Role | Phone | + +------+ + | Tien Nicholson MD | PCP | | + +------+ + Reason for Visit + + + | Reason | Comments | + + + | Shortness of Breath | | + + + | Referral | [facility] | + + + Auth/Cert +--------+--------+ + + + + | Status | Reason | Specialty | Diagnoses / | Referred By | Referred To | | | | | Procedures | Contact | Contact | +--------+--------+ + + + + | | | Internal | Diagnoses | | [facility] 4th | | | | Medicine | Acute | | [address] | | | | | respiratory | | [address] | | | | | distress | | [address] | | | | | Other | | [place], [place] | | | | | ascites | | [address] Phone: | | | | | Pleural | | [phone] | | | | | effusion on | | Fax: | | | | | right Chest | | [phone] | | | | | pain, | | | | | | | unspecified | | | | | | | type | | | +--------+--------+ + + + + Encounter Details +--------+ + + + + | Date | Type | Department | Care Team | Description | +--------+ + + + + | 05/26/ | Hospital | [facility] | Aneudy Hunter, | Pleural effusion on | | 2019 - | Encounter | [facility]th | [address] | right (Primary Dx); | | | | [facility] | [place] [address] | Chest pain, | | 06/01/ | | [address] | [phone] [place], | unspecified type; | | 2019 | | [place] [address] | MD Mayco [address] | Other ascites; Acute | | | | [phone] | [address] | respiratory | | | | | [place] [address] | distress; End-stage | | | | | [phone] | renal disease on | | | | | | hemodialysis ([facility]); | | | | | Anthony Belcher MD | Hyperkalemia; | | | | | [address] | Hyperphosphatemia; | | | | | [place] [address] | At high risk for | | | | | [phone] | electrolyte | | | | | | imbalance; Acute | | | | | Darell Kowalski MD | systolic CHF | | | | | [address] | (congestive heart | | | | | [place] [address] | failure) ([facility]); | | | | | [phone] | Hypoalbuminemia; | | | | | | Anemia in ESRD | | | | | | (end-stage renal | | | | | | disease) ([facility]); ESRD | | | | | | [...] coleman. [facility] Service: Hospitalist Physician Discharge Summary [...] 17. The mitral valve is normal. 18. Ourd-zs-dvkdr ate eccentric mitral regurgitation is present. 19. [...] of chronic disease who went to [facility] with increasing shortness of breath found to have right pleural effusion who was transfer red to [facility] underwent right-sided diagnostic and therapeutic thoracocentesis with removal of 1 L of fluid likely transudative, Gram stain and cultures negative so far and mi so had high volume paracentesis 4 L [...] hyperkalemia with that. I discussed with the pathology laboratory director as Follow Up Labs/Imaging and Monitoring: Cardiology [...] Component Value Units Date/Time Culture, Body Fluid [[id number]] Collected: 05/26/18 1412 Specimen: Body Fluid from Pleural Fluid Updated: 05/30/18 0733 Specimen Description PLEURAL FLUID GRAM STAIN WBC'S SEEN GRAM STAIN NO ORGANISMS SEEN GRAM STAIN STAIN PERFORMED ON CYTOSPIN CULTURE NO GROWTH 4 DAYS Culture, Body Fluid [[id number]] Collected: 05/26/18 1513 Specimen: Other from Ascites Fluid Updated: 05/30/18 0732 Specimen Description ASCITES FLUID GRAM STAIN STAIN PERFORMED ON CYTOSPIN GRAM STAIN WBC'S SEEN GRAM STAIN NO EPITHELIAL CELLS SEEN GRAM STAIN NO ORGANISMS SEEN CULTURE NO GROWTH 4 DAYS Gram stain [[id number]] Collected: 05/29/18 1256 Specimen: Sputum from Thoracic Fluid Updated: 05/29/18 2339 Specimen Description THORACIC FLUID CULTURE 1+ WBC'S SEEN NO ORGANISMS SEEN Lactate dehydrogenase, body fluid [[id number]] Collected: 05/29/18 1256 Specimen: Body Fluid from Pleural, Right Updated: 05/29/18 1619 FLUID LDH 151 U/L Cholesterol, body fluid [[id number]] Collected: 05/29/18 1256 Specimen: Body Fluid from [...] Tien Nicholson MD [address] [place] [address] In 1 week Carolina Mahmood DO [address] [place] [address] In 1 week Daniela Ibarra MD [address] [place] [id number] In 1 week Discharge took more than 35 minutes, to include final examination, discussion of admission, and preparation of prescriptions, instructions for ongoing care, follow up and dictation of summary. Signed: DARELL KOWALSKI MD 06/01/2018 9:59 AM Dictation software, Yoyo, used which may contain error for similar [...] of this encounter Progress Notes Tino Paiz, SLACKMAN - 06/01/2018 3:06 PM PDTFormatting of this note may be different fro m the original. [facility] Department of Respiratory Snf Oxygen Evaluation (Evaluation [...] original. [facility] Service: NEPHROLOGY Dialysis/ Progress Note Dara Louise 23 y.o. [id number] female [facility] Day: LOS: 6 days Patient [...] Surgeon: Rik Simon MD; Location: [facility] IN OR; Service: Vascular; Laterality: Left; DECLOT GRAFT Left 03/07/2014 Procedure: GRAFT - DECLOT; Surgeon: iRk Simon MD; [facility] [...] SUPERFICIALIZATION; Surgeon: Rik Simon MD; Location: [facility] MAIN OR; Service: Vascular; Laterality: [...] radiologist report and is used for image [employer] only Us Abdomen Limited Result Date: 05/28/2018 [...] 17. The mitral valve is normal. 18. Albr-wi-grlctafy eccentric mitral regurgitation i s present. 19. [...] mitral valve is normal. Mitral Kait ve: Qays-bt-eyzloxmb eccentric mitral regurgitation is present. Tricuspid Valve: [...] maxP.08 mmHg TR Vmax: 2.7 4 m/s Financial Accounting Analyst: MOO Authenticated by: Robel Yusuf MD [...] 17. The mitral valve is normal. 18. Onre-dh-rzbgi ate eccentric mitral regurgitation is present. 19. [...] pleural spac e is punctured with an 8-Grenadian thoracentesis catheter. Fluid is aspirated without complicat [...] earlier and charting completed later Dictation software, Yoyo, used which may contain error for similar [...] put on "an antibiotic" for pneumonia at [facility] ED. Was throwing up & could [...] the prelim submitted orders, MWF No acute CASH MANAGEMENT CLERK indication ESTEFANY as indicated with HD Protein [...] may be different from pierre quarles original. [facility] Service: Hospitalist Progress Note Pt: Dara Louise AGE/SEX: 23 y.o. female ROOM: 4441/4441-1 : 1995 PCP: TIEN NICHOLSON ADMIT DATE: 05/26/2018 TODAY'S DATE: 05/31/2018 Hospital Day/Hospital Course: LOS: [address] Belcher 23-year-old female with past medical history of end-stage renal disease on hemodialysis Mon day Monday, hypertension, anemia of chronic disease who went to [facility] with increasing shortness of breath found to have right pleural effusion who was transfer red to [facility] underwent right-sided diagnostic and therapeutic thoracocentesis [...] Component Value Units Date/Time Culture, Body Fluid [[id number]] Collected: 05/26/18 1412 Specimen: Body Fluid from Pleural Fluid Updated: 05/30/18 0733 Specimen Description PLEURAL FLUID GRAM STAIN WBC'S SEEN GRAM STAIN NO ORGANISMS SEEN GRAM STAIN STAIN PERFORMED ON CYTOSPIN CULTURE NO GROWTH 4 DAYS Culture, Body Fluid [[id number]] Collected: 05/26/18 1513 Specimen: Other from Ascites Fluid Updated: 05/30/18 0732 Specimen Description ASCITES FLUID GRAM STAIN STAIN PERFORMED ON CYTOSPIN GRAM STAIN WBC'S SEEN GRAM STAIN NO EPITHELIAL CELLS SEEN GRAM STAIN NO ORGANISMS SEEN CULTURE NO GROWTH 4 DAYS Gram stain [[id number]] Collected: 05/29/18 1256 Specimen: Sputum from Thoracic Fluid Updated: 05/29/18 2339 Specimen Description THORACIC FLUID CULTURE 1+ WBC'S SEEN NO ORGANISMS SEEN Lactate dehydrogenase, body fluid [[id number]] Collected: 05/29/18 1256 Specimen: Body Fluid from Pleural, Right Updated: 05/29/18 1619 FLUID LDH 151 U/L Cholesterol, body fluid [[id number]] Collected: 05/29/18 1256 Specimen: Body Fluid from Pleural, Right Updated: 05/29/18 1619 FLUID CHOLESTEROL 56 mg/dL Sputum culture [[id number]] Collected: 05/27/182014 Specimen: Sputum from Sputum Updated: [...] 17. The mitral valve is normal. 18. Xxyt-fb-rdnnd ate eccentric mitral regurgitation is present. 19. [...] of chronic disease who went to [facility] with increasing shortness of breath due to acute congestive heart failure Acute systolic congestive heart failure with Pleural Effusion: Admitted with acute systolic congestive heart failure with bilateral pleural effusion stat us post thoracentesis 2. Her breathing has improved. She is talking to me appropriately. N ot in any kind of distress. director of medical staff services to initiate the discharge plan. Possible [...] MD, FACP 05/31/2018 9:42 AM Dictation software, Yoyo, used which may contain error for similar [...] of chronic disease who went to [facility] with increasing shortness of breath found to have right pleural effusion who was transfer red to [facility] underwent right-sided diagnostic and therapeutic thoracocentesis [...] Component Value Units Date/Time Culture, Body Fluid [[id number]] Collected: 05/26/18 1412 Specimen: Body Fluid from Pleural Fluid Updated: 05/30/18 0733 Specimen Description PLEURAL FLUID GRAM STAIN WBC'S SEEN GRAM STAIN NO ORGANISMS SEEN GRAM STAIN STAIN PERFORMED ON CYTOSPIN CULTURE NO GROWTH 4 DAYS Culture, Body Fluid [[id number]] Collected: 05/26/18 1513 Specimen: Other from Ascites Fluid Updated: 05/30/18 0732 Specimen Description ASCITES FLUID GRAM STAIN STAIN PERFORMED ON CYTOSPIN GRAM STAIN WBC'S SEEN GRAM STAIN NO EPITHELIAL CELLS SEEN GRAM STAIN NO ORGANISMS SEEN CULTURE NO GROWTH 4 DAYS Gram stain [[id number]] Collected: 05/29/18 1256 Specimen: Sputum from Thoracic Fluid Updated: 05/29/18 2339 Specimen Description THORACIC FLUID CULTURE 1+ WBC'S SEEN NO ORGANISMS SEEN Lactate dehydrogenase, body fluid [[id number]] Collected: 05/29/18 1256 Specimen: Body Fluid from Pleural, Right Updated: 05/29/18 1619 FLUID LDH 151 U/L Cholesterol, body fluid [[id number]] Collected: 05/29/18 1256 Specimen: Body Fluid from Pleural, Right Updated: 05/29/18 1619 FLUID CHOLESTEROL 56 mg/dL Sputum culture [[id number]] Collected: 05/27/182014 Specimen: Sputum from Sputum Updated: [...] 17. The mitral valve is normal. 18. Odfb-nd-heoeq ate eccentric mitral regurgitation is present. 19. [...] of chronic disease who went to [facility] with [...] MD, FACP 05/30/2018 9:10 AM Dictation software, Yoyo, used which may contain error for similar sounding words even af ter review. Personal communication requested for any clarification. Portions of this chart may have been copied from previous notes for continuity of care purp Carolina Camarillo, - 05/29/2018 7:56 PM PDTFormatting of this note may be different from e original. [facility] Service: [...] Hospitalist Progress Note Dara Louise 23 y.o. [id number] [id number] female [facility] Day: LOS: 3 days Patient Summary: 23-year-old female with past medical history of end-stage renal dis ease on hemodialysis Monday, hypertension, anemia of chronic disease who we nt to [facility] with increasing shortness of breath found to have right pleural e ffusion who was transferred to [facility] underwent right-sided diagnostic and therapeu tic [...] Value Units Date/Time Lactate dehydrogenase, body fluid [[id number]] Collected: 05/29/18 125 Specimen: Body Fluid from Pleural, Right Updated: 05/29/181314 Cholesterol, body fluid [[id number]] Collected: 05/29/18 125 Specimen: Body Fluid from Pleural, Right Updated: 05/29/181314 Gram stain [[id number]] Collected: 05/29/18 125 Specimen: Sputum from OTHR-w source desc (F6) Updated: 05/29/18 1309 Sputum culture [[id number]] Collected: 05/27/182014 Specimen: Sputum from Sputum Updated: 05/29/18 0947 Specimen Description SPUTUM GRAM STAIN LESS THAN 10 WBCS/LPF GRAM STAIN LESS THAN 10 SEC/LPF GRAM STAIN NO ORGANISMS SEEN CULTURE 1+ NORMAL UPPER RESPIRATORY ALESSANDRO HIV 1/2 Ab reflex [[id number]] Collected: 05/28/18 1236 Specimen: Blood Updated: 05/29/1842 HIV1/HIV2 NON REACTIVE Protime-INR [[id number]] Collected: 05/29/18851 Specimen: Blood Updated: 05/29/18939 INR 1.5 APTT [[id number]] Collected: 05/29/18851 Specimen: Blood Updated: 05/29/18939 APTT 29 seconds Culture, Body Fluid [[id number]] Collected: 05/26/18 1513 Specimen: Other from Ascites Fluid Updated: 05/29/18919 Specimen Description ASCITES FLUID GRAM STAIN STAIN PERFORMED ON CYTOSPIN GRAM STAIN WBC'S SEEN GRAM STAIN NO EPITHELIAL CELLS SEEN GRAM STAIN NO ORGANISMS SEEN CULTURE NO GROWTH 3 DAYS Culture, Body Fluid [[id number]] Collected: 05/26/18 1412 Specimen: Body Fluid from Pleural Fluid Updated: 05/29/1818 Specimen Description PLEURAL FLUID CULTURE NO GROWTH 3 DAYS Comprehensive metabolic panel [[id number]] (Abnormal) Collected: 05/29/18456 Specimen: Blood Updated: 05/29/1816 [...] mL/min/1.73m2 CBC W/Auto Diff (Reflex to Manual) [[id number]] (Abnormal) Collected: 05/29/18456 Specimen: Blood Updated: 05/29/18 [...] 0.05 K/uL MORPHOLOGY 2+ hCG, serum, qualitative [[id number]] Collected: 05/28/18922 Specimen: Blood Updated: 05/28/18 1950 TEST,SERUM NEGATIVE C-reactive protein [[id number]] (Abnormal) Collected: 05/28/18922 Specimen: Blood Updated: 05/28/18 1941 CRP 5.1 (H) mg/dL Sedimentation rate, automated [[id number]] Collected: 05/28/18922 Specimen: Blood Updated: 05/28/18 1734 ESR 2 mm/Hr Hepatitis panel,acute [[id number]] Collected: 05/28/18 1236 Specimen: Blood Updated: 05/28/18 1650 HAV AB,IGM NON REACTIVE HEP B SURFACE AG NON REACTIVE ANTI HEP B CORE,IGM NON REACTIVE HEPATITIS C NON REACTIVE HEPATITIS INTERP No serologic evidence of HAV, HBV, or HCV infection. Troponin I [[id number]] Collected: 05/28/18922 Specimen: Blood Updated: 05/28/18 143 TROPONIN I 0.034 ng/mL Troponin I [[id number]] Collected: 05/28/18 1359 Specimen: Blood Updated: 05/28/18 1437 TROPONIN I 0.037 ng/mL Renal function panel [[id number]] (Abnormal) Collected: 05/28/18 1209 Specimen: Blood from Blood Updated: 05/28/18 1302 SODIUM 141 mmol/L POTASSIUM 4.3 mmol/L CHLORIDE 101 mmol/L CO2 29 mmol/L ANION GAP AGAP 15 mmol/L GLUCOSE 78 mg/dL BUN 43 (H) mg/dL CREATININE 7.97 (H) mg/dL CALCIUM 9.1 mg/dL Albumin 3.6 g/dL PHOSPHORUS 6.3 (H) mg/dL EGFR 6 (L) mL/min/1.73m2 CBC W/Auto Diff (Reflex to Manual) [[id number]] (Abnormal) Collected: 05/28/18922 Specimen: Blood Updated: 05/28/18 [...] 0.05 K/uL MORPHOLOGY 1+ Comprehensive metabolic panel [[id number]] (Abnormal) Collected: 05/28/18922 Specimen: Blood Updated: 05/28/181209 [...] (H) U/L EGFR 6 (L) mL/min/1.73m2 TSH [[id number]] Collected: 05/28/18922 Specimen: Blood Updated: 05/28/18 1210 TSH 1.270 uIU/mL Pathologist consult [[id number]] Collected: 05/26/18 1412 Updated: 05/28/18 1113 Pathologist Consult -- Hepatitis panel, chronic [[id number]] (Abnormal) Collected: 05/27/181757 Updated: 05/27/182030 Hep A Total Ab REACTIVE (A) HEP B SURFACE AG NON REACTIVE HEP B CORE AB,TOTAL NON REACTIVE HEP B SURFACE ANTIBODY 3.27 (H) IV HEPATITIS C NON REACTIVE HEPATITIS INTERP Current or past HAV infection. Past HBV infection or vaccination. No ser ologic evidence of HCV infection. CBC w/auto diff (reflex to manual) [[id number]] (Abnormal) Collected: 05/27/18424 Specimen: Blood Updated: 05/27/18710 [...] K/uL MORPHOLOGY 2+ Platelet Estimate DECREASED Phosphorus [[id number]] (Abnormal) Collected: 05/27/18424 Specimen: Blood Updated: 05/27/18628 PHOSPHORUS 8.0 (H) mg/dL Basic Metabolic Panel [[id number]] (Abnormal) Collected: 05/27/18424 Specimen: Blood Updated: 05/27/18628 SODIUM 135 mmol/L POTASSIUM 5.9 (H) mmol/L CHLORIDE 96 (L) mmol/L CO2 25 mmol/L ANION GAP AGAP 20 mmol/L GLUCOSE 74 mg/dL BUN 51 (H) mg/dL CREATININE 9.2 (H) mg/dL BUN/CREAT 6 CALCIUM 9.4 mg/dL EGFR 5 (L) mL/min/1.73m2 Magnesium [[id number]] (Abnormal) Collected: 05/27/18424 Specimen: Blood Updated: 05/27/18628 MAGNESIUM 2.7 (H) mg/dL Brain natriuretic peptide [[id number]] (Abnormal) Collected: 05/27/18424 Specimen: Blood Updated: 05/27/18 0546 BRAIN NATRIURETIC PEPTIDE 1,153.92 (H) pg/mL Respiratory Filmarray [[id number]] (Abnormal) Collected: 05/26/181805 Specimen: Nasopharynx/Oropharynx Updated: 05/26/182141 [...] performed by Molecular Methodology MRSA by PCR [[id number]] Collected: 05/26/181805 Specimen: Nasopharyngeal from Nares(Nose) Updated: 05/26/182025 SOURCE NARES(NOSE) MRSA PCR NEGATIVE Procalcitonin [[id number]] (Abnormal) Collected: 05/26/181726 Updated: 05/26/18 1839 PROCALCITONIN 0.76 (H) ng/mL Albumin, Body Fluid [[id number]] Collected: 05/26/18 141 Specimen: Body Fluid from Lung, Right Lower Lobe Updated: 05/26/18 172 FLUID ALBUMIN 2.3 g/dL Total Protein, Body Fluid [[id number]] Collected: 05/26/18 141 Specimen: Body Fluid from Lung, Right Lower Lobe Updated: 05/26/18 172 FLUID TOTAL PROTEIN 4.2 g/dL FLUID TP SOURCE PLEURAL FLUID Cell count, Body Fluid [[id number]] Collected: 05/26/18 141 Specimen: Body Fluid from Lung, Right Lower Lobe Updated: 05/26/18 170 FLUID TYPE PLEURAL FLUID COLOR SAMMIE APPEARANCE CLOUDY RBC'S 3,000 /mm3 TOTAL NUCLEATED CELLS 253 /mm3 NEUTROPHILS 22 % LYMPHOCYTES 8 % MONOCYTES/MACROPHAGES 65 % Mesothelial Cells 5 % CELLS COUNTED 100 pH, Body Fluid [[id number]] Collected: 05/26/18 141 Specimen: Body Fluid from [...] radiologist report and is used for image [employer] only Us Abdomen Limited Result Date: 05/28/2018 [...] 17. The mitral valve is normal. 18. Vjtp-pd-bqotawcs eccentric mitral regurgitation i s present. 19. [...] mitral valve is normal. Mitral Kait ve: Cczi-am-qjgajept eccentric mitral regurgitation is present. Tricuspid Valve: [...] maxP.08 mmHg TR Vmax: 2.7 4 m/s Financial Accounting Analyst: MOO Authenticated by: Robel Yusuf MD [...] 17. The mitral valve is normal. 18. Trln-qs-ztfkm ate eccentric mitral regurgitation is present. 19. [...] put on "an antibiotic" for pneumonia at [facility] ED. Was throwing up & could [...] the prelim submitted orders, MWF No acute CASH MANAGEMENT CLERK indication ESTEFANY as indicated with HD Protein [...] Hospitalist Progress Note Dara Louise 23 y.o. [id number] female [facility] Day: LOS: 2 days Patient Summary: 23-year-old female with past medical history of end-stage renal dis ease on hemodialysis Monday, hypertension, anemia of chronic disease who we nt to [facility] with increasing shortness of breath found to have right pleural e ffusion who was transferred to [facility] underwent right-sided diagnostic and therapeu tic [...] Component Value Units Date/Time Culture, Body Fluid [[id number]] Collected: 05/26/18 1514 Specimen: Other from Ascites Fluid Updated: 05/28/18 1225 Specimen Description ASCITES FLUID GRAM STAIN STAIN PERFORMED ON CYTOSPIN GRAM STAIN WBC'S SEEN GRAM STAIN NO EPITHELIAL CELLS SEEN GRAM STAIN NO ORGANISMS SEEN CULTURE NO GROWTH 2 DAYS Culture, Body Fluid [[id number]] Collected: 05/26/18 141 Specimen: Body Fluid from Pleural Fluid Updated: 05/28/18 1223 Specimen Description PLEURAL FLUID CULTURE NO GROWTH 2 DAYS Comprehensive metabolic panel [[id number]] (Abnormal) Collected: 05/28/18922 Specimen: Blood Updated: 05/28/18 [...] (H) U/L EGFR 6 (L) mL/min/1.73m2 TSH [[id number]] Collected: 05/28/18922 Specimen: Blood Updated: 05/28/18 1210 TSH 1.270 uIU/mL Pathologist consult [[id number]] Collected: 05/26/18 1412 Updated: 05/28/18 1113 Pathologist Consult -- Troponin I [[id number]] Collected: 05/28/18922 Specimen: Blood Updated: 05/28/18 1055 CBC W/Auto Diff (Reflex to Manual) [[id number]] Collected: 05/28/18922 Specimen: Blood Updated: 05/28/18 09 Sputum culture [[id number]] Collected: 05/27/182014 Specimen: Sputum from Sputum Updated: 05/28/18902 Specimen Description SPUTUM GRAM STAIN LESS THAN 10 WBCS/LPF GRAM STAIN LESS THAN 10 SEC/LPF GRAM STAIN NO ORGANISMS SEEN CULTURE CULTURE IN PROGRESS Hepatitis panel, chronic [[id number]] (Abnormal) Collected: 05/27/181757 Updated: 05/27/182030 Hep A Total Ab REACTIVE (A) HEP B SURFACE AG NON REACTIVE HEP B CORE AB,TOTAL NON REACTIVE HEP B SURFACE ANTIBODY 3.27 (H) IV HEPATITIS C NON REACTIVE HEPATITIS INTERP Current or past HAV infection. Past HBV infection or vaccination. No ser ologic evidence of HCV infection. CBC w/auto diff (reflex to manual) [[id number]] (Abnormal) Collected: 05/27/18424 Specimen: Blood Updated: 05/27/18710 [...] K/uL MORPHOLOGY 2+ Platelet Estimate DECREASED Phosphorus [[id number]] (Abnormal) Collected: 05/27/18424 Specimen: Blood Updated: 05/27/18628 PHOSPHORUS 8.0 (H) mg/dL Basic Metabolic Panel [[id number]] (Abnormal) Collected: 05/27/18424 Specimen: Blood Updated: 05/27/18628 SODIUM 135 mmol/L POTASSIUM 5.9 (H) mmol/L CHLORIDE 96 (L) mmol/L CO2 25 mmol/L ANION GAP AGAP 20 mmol/L GLUCOSE 74 mg/dL BUN 51 (H) mg/dL CREATININE 9.2 (H) mg/dL BUN/CREAT 6 CALCIUM 9.4 mg/dL EGFR 5 (L) mL/min/1.73m2 Magnesium [[id number]] (Abnormal) Collected: 05/27/18424 Specimen: Blood Updated: 05/27/18628 MAGNESIUM 2.7 (H) mg/dL Brain natriuretic peptide [[id number]] (Abnormal) Collected: 05/27/18424 Specimen: Blood Updated: 05/27/18545 BRAIN NATRIURETIC PEPTIDE 1,153.92 (H) pg/mL Respiratory Filmarray [[id number]] (Abnormal) Collected: 05/26/181805 Specimen: Nasopharynx/Oropharynx Updated: 05/26/182 [...] performed by Molecular Methodology MRSA by PCR [[id number]] Collected: 05/26/181805 Specimen: Nasopharyngeal from Nares(Nose) Updated: 05/26/182025 SOURCE NARES(NOSE) MRSA PCR NEGATIVE Procalcitonin [[id number]] (Abnormal) Collected: 05/26/18 1727 Updated: 05/26/18 1839 PROCALCITONIN 0.76 (H) ng/mL Albumin, Body Fluid [[id number]] Collected: 05/26/18 141 Specimen: Body Fluid from Lung, Right Lower Lobe Updated: 05/26/18 1729 FLUID ALBUMIN 2.3 g/dL Total Protein, Body Fluid [[id number]] Collected: 05/26/18 141 Specimen: Body Fluid from Lung, Right Lower Lobe Updated: 05/26/18 1729 FLUID TOTAL PROTEIN 4.2 g/dL FLUID TP SOURCE PLEURAL FLUID Cell count, Body Fluid [[id number]] Collected: 05/26/18 141 Specimen: Body Fluid from Lung, Right Lower Lobe Updated: 05/26/18 1708 FLUID TYPE PLEURAL FLUID COLOR SAMMIE APPEARANCE CLOUDY RBC'S 3,000 /mm3 TOTAL NUCLEATED CELLS 253 /mm3 NEUTROPHILS 22 % LYMPHOCYTES 8 % MONOCYTES/MACROPHAGES 65 % Mesothelial Cells 5 % CELLS COUNTED 100 pH, Body Fluid [[id number]] Collected: 05/26/18 1412 Specimen: Body Fluid from Lung, Right Lower Lobe Updated: 05/26/18 1508 FLUID PH 7.45 Procalcitonin [[id number]] (Abnormal) Collected: 05/26/18 1214 Updated: 05/26/18 1330 PROCALCITONIN 0.56 (H) ng/mL Cardiac Panel [[id number]] (Abnormal) Collected: 05/26/18 1214 Updated: 05/26/18 1312 [...] ng/mL CK-MB Index 2.7 Brain natriuretic peptide [[id number]] (Abnormal) Collected: 05/26/18 1214 Updated: 05/26/18 1254 [...] radiologist report and is used for image [employer] [facility] Cardiac Adult Complete Result Date: 05/27/2018 [...] 17. The mitral valve is normal. 18. Aadn-np-epjdxbwh eccentric mitral regurgitation i s present. 19. [...] mitral valve is normal. Mitral Kait ve: Qzjb-ju-fdafxhdo eccentric mitral regurgitation is present. Tricuspid Valve: [...] maxP.08 mmHg TR Vmax: 2.7 4 m/s Financial Accounting Analyst: MOO Authenticated by: Robel Yusuf MD [...] 17. The mitral valve is normal. 18. Dgzo-xn-iypls ate eccentric mitral regurgitation is present. 19. [...] Hospitalist Progress Note Dara Louise 23 y.o. [id number] female [facility] Day: LOS: 1 day Patient Summary: 23-year-old female with past medical history of end-stage renal dis ease on hemodialysis Monday, hypertension, anemia of chronic disease who we nt to [facility] with increasing shortness of breath found to have right pleural e ffusion who was transferred to [facility] underwent right-sided diagnostic and therapeu tic [...] Date/Time CBC w/auto diff (reflex to manual) [[id number]] (Abnormal) Collected: 05/27/18424 Specimen: Blood Updated: 05/27/18 [...] K/uL MORPHOLOGY 2+ Platelet Estimate DECREASED Phosphorus [[id number]] (Abnormal) Collected: 05/27/18424 Specimen: Blood Updated: 05/27/18 0629 PHOSPHORUS 8.0 (H) mg/dL Basic Metabolic Panel [[id number]] (Abnormal) Collected: 05/27/18424 Specimen: Blood Updated: 05/27/18628 SODIUM 135 mmol/L POTASSIUM 5.9 (H) mmol/L CHLORIDE 96 (L) mmol/L CO2 25 mmol/L ANION GAP AGAP 20 mmol/L GLUCOSE 74 mg/dL BUN 51 (H) mg/dL CREATININE 9.2 (H) mg/dL BUN/CREAT 6 CALCIUM 9.4 mg/dL EGFR 5 (L) mL/min/1.73m2 Magnesium [[id number]] (Abnormal) Collected: 05/27/18424 Specimen: Blood Updated: 05/27/18 0629 MAGNESIUM 2.7 (H) mg/dL Brain natriuretic peptide [[id number]] (Abnormal) Collected: 05/27/18424 Specimen: Blood Updated: 05/27/18 0546 BRAIN NATRIURETIC PEPTIDE 1,153.92 (H) pg/mL Respiratory Filmarray [[id number]] (Abnormal) Collected: 05/26/181805 Specimen: Nasopharynx/Oropharynx Updated: 05/26/182141 [...] performed by Molecular Methodology MRSA by PCR [[id number]] Collected: 05/26/18 180 Specimen: Nasopharyngeal from Nares(Nose) Updated: 05/26/182025 SOURCE NARES(NOSE) MRSA PCR NEGATIVE Procalcitonin [[id number]] (Abnormal) Collected: 05/26/18 1727 Updated: 05/26/18 183 PROCALCITONIN 0.76 (H) ng/mL Culture, Body Fluid [[id number]] Collected: 05/26/18 141 Specimen: Body Fluid from Pleural Fluid Updated: 05/26/18 181 Pathologist consult [[id number]] Collected: 05/26/18 141 Updated: 05/26/18 1742 Albumin, Body Fluid [[id number]] Collected: 05/26/18 141 Specimen: Body Fluid from Lung, Right Lower Lobe Updated: 05/26/18 1729 FLUID ALBUMIN 2.3 g/dL Total Protein, Body Fluid [[id number]] Collected: 05/26/18 141 Specimen: Body Fluid from Lung, Right Lower Lobe Updated: 05/26/18 1729 FLUID TOTAL PROTEIN 4.2 g/dL FLUID TP SOURCE PLEURAL FLUID Cell count, Body Fluid [[id number]] Collected: 05/26/18 141 Specimen: Body Fluid from Lung, Right Lower Lobe Updated: 05/26/18 1708 FLUID TYPE PLEURAL FLUID COLOR SAMMIE APPEARANCE CLOUDY RBC'S 3,000 /mm3 TOTAL NUCLEATED CELLS 253 /mm3 NEUTROPHILS 22 % LYMPHOCYTES 8 % MONOCYTES/MACROPHAGES 65 % Mesothelial Cells 5 % CELLS COUNTED 100 Culture, Body Fluid [[id number]] Collected: 05/26/18 1513 Specimen: Other from Ascites Fluid Updated: 05/26/18 1631 Specimen Description ASCITES FLUID GRAM STAIN STAIN PERFORMED ON CYTOSPIN GRAM STAIN WBC'S SEEN GRAM STAIN NO EPITHELIAL CELLS SEEN GRAM STAIN NO ORGANISMS SEEN CULTURE PENDING pH, Body Fluid [[id number]] Collected: 05/26/18 1412 Specimen: Body Fluid from Lung, Right Lower Lobe Updated: 05/26/18 1508 FLUID PH 7.45 Procalcitonin [[id number]] (Abnormal) Collected: 05/26/181213 Updated: 05/26/18 1330 PROCALCITONIN 0.56 (H) ng/mL Cardiac Panel [[id number]] (Abnormal) Collected: 05/26/181213 Updated: 05/26/18 1312 WBC [...] ng/mL CK-MB Index 2.7 Brain natriuretic peptide [[id number]] (Abnormal) Collected: 05/26/181213 Updated: 05/26/18 1254 BRAIN [...] radiologist report and is used for image [facility] only PROBLEM LIST Active Problems: ESRD on [...] heparin ANTHONY BELCHER MD 05/27/2018 Jae Gutierres, [facility] - 05/26/2018 6:05 PM PDTRenal [...] | + +--------+ + + + | [facility] CARD PANEL W/O | STAT | 05/26/2018 [...] (H) | 35 - 115 U/L | [facility] | | | | | LABORATORY | + + + + + | AST | 97 (H) | 10 - 45 U/L | [facility] | | | | | LABORATORY | [...] [address] | | | | | [facility], | | | | | [place] [address] | | | + + + + + + + | Specimen | + + | Blood | + + + + + + + | Performing | Address | City/State/Zipcode | Phone Number | | Organization | | | | + + + + + | [facility] | [address] | [place] [address] | [phone] | | LABORATORY | Blvd. | | [...] performed | | | | | at [facility], [address] | | | | | [facility], | | | | | [place] [address] | | | | |Testing performed at [facility], [address] [place] [address] | | | | | | | | + + + + + + + | Specimen | + + | Blood | + + + + + + + | Performing | Address | City/State/Zipcode | Phone Number | | Organization | | | | + + + + + | [facility] | [address] | [place] [address] | [phone] | | LABORATORY | Bl[address]. | | [...] [address] | | | | | [address], | | | | | [place] [address] | | | + + + + + + + | Specimen | + + | Blood | + + + + + + + | Performing | Address | City/State/Zipcode | Phone Number | | Organization | | | | + + + + + | [facility] | [address] | [place] [address] | [phone] | | LABORATORY | [address] | | [...] performed | | | | | at [facility], [address] | | | | | [facility], | | | | | [place] [address] | | | | |Testing performed at [facility], [address] [facility], [place] [address] | | | | | | | | + + + + + + + | Specimen | + + | Blood | + + + + + + + | Performing | Address | City/State/Zipcode | Phone Number | | Organization | | | | + + + + + | [facility] | [address] | [place] [address] | [phone] | | LABORATORY | Blvd. | | [...] | | | antibiotic" for pneumonia at [facility]. Was throwing up & could [...] 0.8 | 0.1 - 1.5 mg/dL | [facility] | | | | | LABORATORY | [...] [address] | | | | | [facility], | | | | | [place] [address] | | | + + + + + + + | Specimen | + + | Blood | + + + + + + + | Performing | Address | City/State/Zipcode | Phone Number | | Organization | | | | + + + + + | [facility] | [address] | [place] [address] | [phone] | | LABORATORY | Blvd. | | [...] performed | | | | | at [facility], [address] | | | | | [facility], | | | | | [place] [address] | | | | |Testing performed at [facility], [address] [facility] [place] [address] | | | | | | | | + + + + + + + | Specimen | + + | Blood | + + + + + + + | Performing | Address | City/State/Zipcode | Phone Number | | Organization | | | | + + + + + | [facility] | [address] | [place] [address] | [phone] | | LABORATORY | Blvd. | | [...] + + + + + | [facility] | [address] | [place] [address] | | + + + + + Cholesterol, body fluid (05/29/2018 12:56 PM) + + + + + | Component | Value | Ref Range | Performed At | + + + + + | FLUID CHOLESTEROL | 56Comment: This is not a | mg/dL | [facility] | | | russian language professor validated | | LABORATORY | | | sample type for this | | | | | method. No reference | | | | | ranges have been | | | | | established.Testing | | | | | performed at [facility], [address] | | | | | [facility], | | | | | [place] [address] | | | + + + + + + + | Specimen | + + | Body Fluid - | | Pleural, Right | + + + + + + + | Performing | Address | City/State/Zipcode | Phone Number | | Organization | | | | + + + + + | [facility] | [address] | [place] [address] | [phone] | | LABORATORY | Blvd. | | | + + + + + Lactate dehydrogenase, body fluid (05/29/2018 12:56 PM) + + + + + | Component | Value | Ref Range | Performed At | + + + + + | FLUID LDH | 151Comment: This is not | U/L | [facility] | | | a russian language professor validated | | LABORATORY | | | sample type for this | | | | | method. No reference | | | | | ranges have been | | | | | established.Testing | | | | | performed at [facility], [address] | | | | | [facility], | | | | | [place] [address] | | | + + + + + + + | Specimen | + + | Body Fluid - | | Pleural, Right | + + + + + + + | Performing | Address | City/State/Zipcode | Phone Number | | Organization | | | | + + + + + | [facility] | [address] | [place] [address] | [phone] | | LABORATORY | Blvd. | | [...] + + + | [facility] | [address] | [place] [address] | [phone] | | LABORATORY | Blvd. | | [...] | | space is punctured with an 8-Grenadian thoracentesis catheter. Fluid is | | | [...] the pleural space is punctured with an 8-Grenadian | | thoracentesis catheter. Fluid is aspirated [...] HOSPITAL | [address] | [place] [address] | | + + + + + APTT (05/29/2018 8:52 AM) + + + + + | Component | Value | Ref Range | Performed At | + + + + + | APTT | 29Comment: Testing | 23 - 32 seconds | [facility] | | | performed at [facility];[address] | | [address];[place] | | | | | [address] | | | + + + + + + + | Specimen | + + | Blood | + + + + + + + | Performing | Address | City/State/Zipcode | Phone Number | | Organization | | | | + + + + + | [facility] | [address] | [place] [address] | | + + + + + [...] [address];[place] | | | | | [address] | | | + + + + + + + | Specimen | + + | Blood | + + + + + + + | Performing | Address | City/State/Zipcode | Phone Number | | Organization | | | | + + + + + | [facility] | [address] | [place] [address] | | + + + + + [...] the | | | | | [facility] traceable | | | | | equation.Testing | | | | | performed at [facility], [address] | | | | | [facility], | | | | | [place] [address] | | | + + + + + + + | Specimen | + + | Blood | + + + + + + + | Performing | Address | City/State/Zipcode | Phone Number | | Organization | | | | + + + + + | [facility] | [address] | [place] [address] | [phone] | | LABORATORY | Blvd. | | [...] performed | | | | | at [facility], [address] | | | | | [employer], | | | | | [place] [address] | | | | |Testing performed at [facility], [address] [place] [address] | | | | | | | | + + + + + + + | Specimen | + + | Blood | + + + + + + + | Performing | Address | City/State/Zipcode | Phone Number | | Organization | | | | + + + + + | [facility] | [address] | [place] [address] | [phone] | | LABORATORY | [address] | | [...] | Procedure Note | + + | Ecdric, Rad Results In - 05/28/2018 9:28 PM [...] + + + + + | [facility] | [address] | [place] [address] | | + + + + + [...] performed at | | | | | [facility];[address] | | | | [address];[place] [address] | | | + + + + + + + | Specimen | + + | Blood | + + + + + + + | Performing | Address | City/State/Zipcode | Phone Number | | Organization | | | | + + + + + | [facility] | [address] | [place] [address] | | + + + + + [...] | performed at [facility], [address] | | | | | [facility], | | | | | [place] [address] | | | + + + + + + + | Specimen | + + | Blood | + + + + + + + | Performing | Address | City/State/Zipcode | Phone Number | | Organization | | | | + + + + + | [facility] | [address] [place] [address] | [place] [address] | [phone] | | LABORATORY | [address] | | [...] performed at | | | | | [facility], [address] [place] [address] | | | | | [place] | | | | | [address] | | | + + + + + + + | Specimen | + + | Blood | + + + + + + + | Performing | Address | City/State/Zipcode | Phone Number | | Organization | | | | + + + + + | [facility] | [address] | [place] [address] | [phone] | | LABORATORY | [address]vd[address] | | | + + + + + Renal function panel (05/28/2018 12:09 PM) + + + + + | Component | Value | Ref Range | Performed At | + + + + + | SODIUM | 141 | 135 - 145 mmol/L | [facility] | + + + + + [...] 9.1 | 8.5 - 10.5 mg/dL | [facility] | + + + + + | Albumin | 3.6 | 3.6 - 5.0 g/dL | [facility] | + + + + + | PHOSPHORUS | 6.3 (H) | 2.3 - 4.8 mg/dL | [facility] [...] [address];[place] | | | | | [address] | | | + + + + + + + | Specimen | + + | Blood - Blood | + + + + + + + | Performing | Address | City/State/Zipcode | Phone Number | | Organization | | | | + + + + + | [facility] | [address] | [place] [address] | | + + + + + [...] + + + + | Calculated P [place] | 24 | degrees | [facility] E[facility] | + + + + + | Calculated R [place] | 24 | degrees | [facility] EKG | + + + + + | Calculated T [place] | 103 | degrees | [facility] EKG [...] | [address] | [place] [address] | | + + + + + hCG, serum, qualitative (05/28/2018 9:23 AM) + + + + + | Component | Value | Ref Range | Performed At | + + + + + | TEST,SERUM | NEGATIVEComment: Testing | NEGATIVE | [facility] | | | performed at [facility], [facility] | | LABORATORY | | | [address], | | | | | [place] [address] | | | + + + + + + + | Specimen | + + | Blood | + + + + + + + | Performing | Address | City/State/Zipcode | Phone Number | | Organization | | | | + + + + + | [facility] | [address] | [place] [address] | [phone] | | LABORATORY | [address] | | | + + + + + C-reactive protein (05/28/2018 9:23 AM) + + + + + | Component | Value | Ref Range | Performed At | + + + + + | CRP | 5.1 (H)Comment: Testing | <0.5 mg/dL | [facility] | | | performed at [facility], [address] | | LABORATORY | | | [address], | | | | | [place] [address] | | | + + + + + + + | Specimen | + + | Blood | + + + + + + + | Performing | Address | City/State/Zipcode | Phone Number | | Organization | | | | + + + + + | [facility] | [address] | [place] [address] | [phone] | | LABORATORY | [address]vd[address] | | | + + + + + Sedimentation rate, automated (05/28/2018 9:23 AM) + + + + + | Component | Value | Ref Range | Performed At | + + + + + | ESR | 2Comment: Testing | 0 - 20 mm/Hr | [facility] | | | performed at [facility], [address] | | LABORATORY | | | [address], | | | | | [place] [address] | | | + + + + + + + | Specimen | + + | Blood | + + + + + + + | Performing | Address | City/State/Zipcode | Phone Number | | Organization | | | | + + + + + | [facility] | [address] | [place] [address] | [phone] | | LABORATORY | [address]vd[address] | | | + + + + + TSH (05/28/2018 9:23 AM) + + + + + | Component | Value | Ref Range | Performed At | + + + + + | TSH | 1.270Comment: Testing | 0.450 - 5.100 uIU/mL | [facility] | | | performed at [facility], [address] | | LABORATORY | | | [address], | | | | | [place] [address] | | | + + + + + + + | Specimen | + + | Blood | + + + + + + + | Performing | Address | City/State/Zipcode | Phone Number | | Organization | | | | + + + + + | [facility] | [address] | [place] [address] | [phone] | | LABORATORY | [address]vd. | | [...] performed at | | | | | [facility];[address] [place] [address] | | | | | [facility];[place] [address] | | | + + + + + + + | Specimen | + + | Blood | + + + + + + + | Performing | Address | City/State/Zipcode | Phone Number | | Organization | | | | + + + + + | [facility] | [address] | [place] [address] | | + + + + + [...] [address] | | | | | [facility], | | | | | [place] [address] | | | + + + + + + + | Specimen | + + | Blood | + + + + + + + | Performing | Address | City/State/Zipcode | Phone Number | | Organization | | | | + + + + + | [facility] | [address] | [place] [address] | [phone] | | LABORATORY | [address]vd. | | [...] performed | | | | | at [facility], [address] | | | | | [employer], | | | | | [place] [address] | | | | |Testing performed at [facility], [address] [facility], [place] [address] | | | | | | | | + + + + + + + | Specimen | + + | Blood | + + + + + + + | Performing | Address | City/State/Zipcode | Phone Number | | Organization | | | | + + + + + | [facility] | [address] | [place] [address] | [phone] | | LABORATORY | [address]vd. | | [...] PERFORMING LABORATORY: Technical preparation was performed by [facility] | | | [facility], [address] [place] [address] | | | ([employer]re[employer] Build[employer] Decorator: Matt Claudio D.O.; CLIA#: [id number]). | | | Professional interpretation was performed by [facility], | | | [facility], [address] [place] [id number] | | | (Streets And Buildings Decorator: Daniel Larson M.D.; CLIA#: [id number]).6 | | | Diagnostician: Marie BROOKS ([facility]) Chief Of Production | | | Diagnostician: Anahy Da Silva MD Pathologist Electronically Signed | | | 05/30/2018 | | + + + + +---------+ + + | Performing | Address | City/State/Zipcode | Phone Number | | Organization | | | | + +---------+ + + | [facility] | | | | [...] + + + | [facility] | [address] | [place] [address] | [phone] | | LABORATORY | [address]vd[address] | | [...] performed at | | | | | [facility], [address] [place] [address] | | | | | [place] | | | | | [address] | | | + + + + + + + + + + | Performing | Address | City/State/Zipcode | Phone Number | | Organization | | | | + + + + + | [facility] | [address] | [place] [address] | [phone] | | LABORATORY | [address] | | [...] valve is normal. 18. | | | Ssvy-us-bfdnmnpf eccentric mitral regurgitation is present. 19. | [...] LOUISE Date of : 1995 | [facility] | | Performing Physician: [...] valve is normal. 18. | | | Njqa-la-ltharkam eccentric mitral regurgitation is present. 19. | [...] is | | | normal. Mitral Valve: Szjh-nb-wihltnjp eccentric mitral | | | regurgitation is [...] TR Vmax: 2.74 m/s | | | Financial Accounting Analyst: MW Authenticated by: Robel Yusuf MD Report | | | Date/Time: 05-27-2018 13:59:57 | | + + + + + | Procedure Note | + + | Sonido Steele In - 05/27/2018 2:00 PM PDT Patient Name: Anders LOUISE of | | : 1995Accession: [id number] Physician: Robel Yusuf | | MD INDICATIONS [...] aortic stenosis.17. The mitral valve is normal.18. Neoo-vt-qxdvqdan | | eccentric mitral regurgitation is present.19. [...] | | arch are normal.26. No mass vnrfmidvss15. No clot visualizedFINDINGS--------ECG rhythm: | | Sinus [...] The mitral valve is normal. Mitral Valve: Ntnp-up-ezuiwfnq eccentric mitral | | regurgitation is present.Tricuspid [...] (A-L): 30.43 | | ml/m2LAAs A2C: 20.97 fo7TMKUH A-L A2C: 65.71 mlLALs A2C: 5.68 cmLAAs A4C: 19.94 | | da1TVVNF A-L A4C: 60.20 mlLALs A4C: 5.60 cmTAPSE: 1.58 cmHR: 79.62 BPMAV maxPG: | | 6.06 mmHgAV meanP.71 mmHgAV Vmax: 1.23 m/Elizabeth Vmean: 0.92 m/Elizabeth VTI: 20.07 | | cmAVA Vmax: 1.74 cm2AVA (VTI): 1.93 ys1LCEV Vmax: 0.00 cm2/m2AVAI (VTI): 0.00 | | [...] The mitral valve is | | normal.18. Ksfk-nu-xrheuely eccentric mitral regurgitation is present.19. Severe | [...] |TR Vmax: 2.74 m/s | | | |Financial Accounting Analyst: MW | |Authenticated by: Robel Yusuf [...] The mitral valve is normal. | |18. Lnue-pf-bllmyngq eccentric mitral regurgitation is present. | |19. [...] + + + + + | [facility] | [address] | [place] [address] | | + + + + + [...] [facility] | [address] | [place] [address] | | + + + + + [...] performed at | | | | | [facility];[address] | | | | | Blvd;[place] [address] | | | + + + + + + + | Specimen | + + | Blood | + + + + + + + | Performing | Address | City/State/Zipcode | Phone Number | | Organization | | | | + + + + + | [facility] | [address] | [place] [address] | | + + + + + Phosphorus (05/27/2018 4:25 AM) + + + + + | Component | Value | Ref Range | Performed At | + + + + + | PHOSPHORUS | 8.0 (H)Comment: Testing | 2.3 - 4.8 mg/dL | [facility] | | | performed at [facility], [address] | | LABORATORY | | | [address], | | | | | [place] [address] | | | + + + + + + + | Specimen | + + | Blood | + + + + + + + | Performing | Address | City/State/Zipcode | Phone Number | | Organization | | | | + + + + + | [facility] | [address] | [place] [address] | [phone] | | LABORATORY | [address]vd[address] | | | + + + + + Magnesium (05/27/2018 4:25 AM) + + + + + | Component | Value | Ref Range | Performed At | + + + + + | MAGNESIUM | 2.7 (H)Comment: Testing | 1.7 - 2.4 mg/dL | [facility] | | | performed at [facility], [address] | | LABORATORY | | | [address], | | | | | [place] [address] | | | + + + + + + + | Specimen | + + | Blood | + + + + + + + | Performing | Address | City/State/Zipcode | Phone Number | | Organization | | | | + + + + + | [facility] | [address] | [place] [address] | [phone] | | LABORATORY | [address] | | [...] [address] | | | | | [facility], | | | | | [place] [address] | | | + + + + + + + | Specimen | + + | Blood | + + + + + + + | Performing | Address | City/State/Zipcode | Phone Number | | Organization | | | | + + + + + | [facility] | [address] | [place] [address] | [phone] | | LABORATORY | [address] | | | + + + + + CBC w/auto diff (reflex to manual) (05/27/2018 4:25 AM) + + + + + | Component | Value | Ref Range | Performed At | + + + + + | WBC | 6.62 | 3.80 - 11.00 K/uL | [facility] | + + + + + | RBC | 3.48 (L) | 3.70 - 5.10 M/uL | [facility] | + + + + + | HGB | 12.5 | 11.3 - 15.5 g/dL | [facility] | + + + + + | HCT | 37.9 | 34.0 - 46.0 % | [facility] | + + + + + | MCV | 108.8 (H) | 80.0 - 100.0 fl | [facility] | + + + + + | MCH | 35.8 (H) | 27.0 - 34.0 pg | [facility] | + + + + + | MCHC | 32.9 | 32.0 - 35.5 g/dL | [facility] [...] + | MORPHOLOGY | 2+ | | [facility] | | | Comment: | | | | | MACRO | | | | | NORMAL PLT MORPH | | | | | | | | + + + + + | Platelet Estimate | DECREASEDComment: | | [facility] | | | Testing performed at | | | | | [facility];[address] | | | | | [address];[place] [address] | | | + + + + + + + | Specimen | + + | Blood | + + + + + + + | Performing | Address | City/State/Zipcode | Phone Number | | Organization | | | | + + + + + | [facility] | [address] | [place] [address] | | + + + + + [...] CENTER LABORATORY | | | performed at [facility];[address] | | | | | [address];[place] | | | | | [id number] | | | + + + + [...] | [address] | [place] [address] | | + + + + + [...] INTERP | Testing performed by | | [facility] | | | Molecular | | LABORATORY | | | MethodologyComment: | | | | | Testing performed at | | | | | [facility], [address] | | | | | [place], [place] | | | | | [address] | | | + + + + + + + | Specimen | + + | Nasopharynx/Orophary | | nx | + + + + + + + | Performing | Address | City/State/Zipcode | Phone Number | | Organization | | | | + + + + + | [facility] | [address] | [place] [address] | [phone] | | [place] | [place]. | | [...] performed | | | | | at [facility];[address] | | | | | [place] [address] | | | + + + + + + + + + + | Performing | Address | City/State/Zipcode | Phone Number | | Organization | | | | + + + + + | [facility] | [address] | [place] [address] | | + + + + + [...] [facility] | [address] | [place] [address] | | + + + + + [...] + + + + + | [facility] | [address] Home | [place] [address] | | + + + + + [...] + + + | [facility] | [address] | [place] [address] | [phone] | | LABORATORY | Blvd. | | | + + + + + | [facility] | [address] | [place] [address] | | + + + + + [...] performed | | | | | at [facility];[address] | | | | | [address];[place] [address] | | | + + + + + + + + + + | Performing | Address | City/State/Zipcode | Phone Number | | Organization | | | | + + + + + | [facility] | [address] | [place] [address] | | + + + + + Total Protein, Body Fluid (05/26/2018 2:12 PM) + + + + + | Component | Value | Ref Range | Performed At | + + + + + | FLUID TOTAL PROTEIN | 4.2Comment: This is not | g/dL | [facility] | | | a russian language professor validated | | LABORATORY | | | sample type for this | | | | | method. No reference | | | | | ranges have been | | | | | established.Testing | | | | | performed at [facility], [address] | | | | | [address], | | | | | [place] [address] | | | + + + + + | FLUID TP SOURCE | PLEURAL FLUIDComment: | | [facility] | | | Testing performed at | | | | | [facility];[address] | | | | | [place] [address] | | | + + + + [...] CENTER LABORATORY | [address] | [place] [address] | | + + + + + | [facility] | [address] | [place] [address] | [phone] | | LABORATORY | Blvd. | | | + + + + + Albumin, Body Fluid (05/26/2018 2:12 PM) + + + + + | Component | Value | Ref Range | Performed At | + + + + + | FLUID ALBUMIN | 2.3Comment: This is not | g/dL | [facility] | | | a russian language professor validated | | LABORATORY | | | sample type for this | | | | | method. No reference | | | | | ranges have been | | | | | established.Testing | | | | | performed at [facility], [address] | | | | | [facility], | | | | | [place] [address] | | | + + + + + + + | Specimen | + + | Body Fluid - Lung, | | Right Lower Lobe | + + + + + + + | Performing | Address | City/State/Zipcode | Phone Number | | Organization | | | | + + + + + | [facility] | [address] | [place] [address] | [phone] | | LABORATORY | [address] | | | + + + + + pH, Body Fluid (05/26/2018 2:12 PM) + + + + + | Component | Value | Ref Range | Performed At | + + + + + | FLUID PH | 7.45Comment: Testing | | [facility] | | | performed at [facility];[address] | | | | | [address];[place] | | | | | [address] | | | + + + + [...] CENTER LABORATORY | [address] | [facility] [place] [address] | | + + + + + [...] + + + | [facility] | [address] | [place] [address] | [phone] | | LABORATORY | Blvd. | | | + + + + + Cell count, Body Fluid (05/26/2018 2:12 PM) + + + + + | Component | Value | Ref Range | Performed At | + + + + + | FLUID TYPE | PLEURAL FLUID | | [facility] | + + + + + | COLOR | SAMMIE | | [facility] | + + + + + | APPEARANCE | CLOUDY | | [facility] | + + + + + | RBC'S | 3,000Comment: CORRECTED | /mm3 | [facility] | | | RESULTS CALLED TO | | | | | MARIA LUISA IN ED AT 1705 | | | | | BY LGJCORRECTED ON 05/26 | | | | | AT 1702: PREVIOUSLY | | | | | REPORTED <[id number] | | | + + + + [...] | MONOCYTES/MACROPHAGE | 65 | % | [facility] | | S | | | | + + + + + | Mesothelial Cells | 5 | % | [facility] | + + + + + | CELLS COUNTED | 100Comment: Testing | | [facility] | | | performed at [facility];[address] | | | | | [address];[place] | | | | | [address] | | | + + + + [...] | [address] | [place] [address] | | + + + + [...] performed | | | | | at [facility];[address] [place] [address] | | | | | [place] [address] | | | + + + + + + + + + + | Performing | Address | City/State/Zipcode | Phone Number | | Organization | | | | + + + + + | [facility] | [address] | [place] [address] | | + + + + + Brain natriuretic peptide (05/26/2018 12:14 PM) + + + + + | Component | Value | Ref Range | Performed At | + + + + + | BRAIN NATRIURETIC | 1,368.24 (H)Comment: | 0 - 100 pg/mL | [facility] | | PEPTIDE | Testing performed at | | | | | [facility];[address] | | | | | [address];[place] [address] | | | + + + + + + + + + + | Performing | Address | City/State/Zipcode | Phone Number | | Organization | | | | + + + + + | [facility] | [address] | [place] [address] | | + + + + + [...] (H) | 80.0 - 100.0 fl | [facility] | + + + + + | MCH | 36.3 (H) | 27.0 - 34.0 pg | [facility] | + + + + + | MCHC | 33.4 | 32.0 - 35.5 g/dL | [facility] | + + + + + | RDW SD | 59.9 (H) | 37 - 53 fl | [facility] | + + + + + | PLT | 151 | 150 - 400 K/uL | [facility] | + + + + + | MPV | 10.1 | fl | [facility] | + + + + + | DIFF TYPE | AUTOMATED | | [facility] | + + + + + [...] | MORPHOLOGY | 2+Comment: MACRO | | [facility] | + + + + + | Platelet Estimate | ADEQUATE | | [facility] | + + + + + | SODIUM | 140 | 135 - 145 mmol/L | [facility] | + + + + + | POTASSIUM | 4.6 | 3.5 - 4.9 mmol/L | [facility] [...] the | | | | | [facility]D [facility] traceable | | | | | [...] (H) | 0.5 - 3.6 ng/mL | [facility] [...] [place] | | | | | [address] | | | + + + + + + + + + + | Performing | Address | City/State/Zipcode | Phone Number | | Organization | | | | + + + + + | [facility] | [address] | [place] [address] | | + + + + + [...] space: 4th Puncture | | | method: Bqiy-oqa-srdqjg catheter Ultrasound guidance: yes | | | [...] perforation, infection and | | | pain [place] protocol: Imaging studies available: yes | | [...] Performed At | + + + | [id number] Criteria Met 2 in 2 | ED [...] Count (12 mo.) Facility Visits Low Acuity [facility] | | | [facility] 1 0 [facility] 5 0 Total 6 0 | | | Note: Visits indicate total known visits. Medicaid Low Acuity Dx | | | are the number of primary diagnoses on the Medicaid's Low Acuity dx | | | list. Recent Emergency Department Visit Summary Date Facility | | | [facility] State Type Diagnoses or Chief Complaint May 26, 2018 [facility] | | | [facility] Reji Nagy [place] Emergency Chest pain, unspecified | | | [facility] [place] [facility] | | | Complaint: FLU SYMPTOMS [facility], 2018 [facility] [place] | | | Emergency Chief Complaint: SOB/COUGH May 10, 2018 [facility] | | | [facility]. Pendjunie [...] | | disease Feb 14, 2018 [facility] [place] Emergency | | | Functional dyspepsia Other ascites Epigastric pain | | | Allergy status to narcotic agent status Radiographic dye | | | allergy status Nicotine dependence, unspecified, uncomplicated | | | Other supervisor long goods (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 Sep 16, 2017 [facility] | | | [place] [facility] [place] Emergency Chronic kidney disease, | | | unspecified Dependence on renal dialysis Pain, | | | unspecified Allergy status to narcotic agent status | | | Nicotine dependence, unspecified, uncomplicated Other supervisor long goods | | | (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 Elevated [...] record at this time. | | | AfterSteps Portal This patient has registered at the [facility] | | | [facility] Emergency Department For more information visit: | | | [email or web address] | | | [email or web address] andnbsp PLEASE NOTE: [...] | | completeness of information provided. 2019 [employer] | | | Traansmission. - [employer] | | + + + + + | Procedure Note | + + | Will, Lab - 05/26/2018 12:00 PM PDT Formatting of this note may be different | | from the original.[id number] Met 2 in 2Security and | | [...] Chief | | [facility] [address] [facility] [address] [place] [facility] Chest pain, | | unspecified May 26, 2018 [facility] [place] [facility] [place] Emergency Chief Complaint: FLU | | SYMPTOMS May 25, 2018 [facility] [place] Emergency Chief Complaint: | | SOB/COUGH May 10, 2018 [facility] [place] Emergency Epistaxis Other long [...] stage renal disease Feb 14, 2018 [facility] | | [place] [place] Emergency Functional dyspepsia Other ascites Epigastric pain | | Allergy status to narcotic agent status Radiographic dye allergy status Nicotine | | dependence, unspecified, uncomplicated Other fdc (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 Waldemar | | 2017 [facility] [place] Emergency Chronic kidney disease, [...] | PortalThis patient has registered at the [facility] Emergency | | Department For more information visit: | | [email or web address] andnbsp | | PLEASE NOTE: 1. Any [...] to the | | limitations of applicable AfterSteps Policies. 3. You should consult directly with | | the organization that provided a care guideline or other clinical history with any | | questions about additional information or accuracy or completeness of information | | provided.2019 [employer]. - www.[email or web address] | | Hypertensive heart and chronic kidney disease without heart failure, with stage 5 chroni c kidney disease, or end stage renal disease | | | |Feb 14, 2018 [facility] [place] Emergency | | Functional dyspepsia | | Other ascites | | Epigastric pain | | Allergy status to narcotic agent status | | Radiographic dye allergy status | | Nicotine dependence, unspecified, uncomplicated | | Other fdc (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 | | | |Sep 16, 2017 [facility] [place] Emergency | | Chronic kidney disease, unspecified | | Dependence on renal dialysis | | Pain, unspecified | | Allergy status to narcotic agent status | | Nicotine dependence, unspecified, uncomplicated | | Other supervisor long goods (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 | | Elevated blood-pressure [...] Emergency Department | |For more information visit: [email or web address] | |andnbsp PLEASE NOTE: | | 1. [...] of information provided. | | | |2019 [employer]. - www.[email or web address] | + + + +---------+ + + [...] + + + + + | [facility] | [address] | [place] [address] | | + + + + + [...] 10 mLs | | | | 0.5% -[id number] injection 10 mL | Other | 9 [...] PDT | | | | | Dialysis, [facility] 05/30/18 at 0730, | | [...] PDT | | | | | Dialysis, [place] 05/27/18 at 1700, | | | | [...] PDT | | | | | Dialysis, [facility] 05/28/18 at 1230, | | | [...] PDT | | | | | Dialysis, [facility] 06/01/18 at 0800, | | | [...]
--- OUTSIDE RECORDS SUMMARY | ~2018-06-12 | XMS | Encounter Summary ---
Demographics + + + | Address | [address] | | | [place] [address] | + + + | Home Phone [...] | Author | [facility] | | | and Josephana | + + + | Organization | [facility] [...] | | KIDNEY TRANSPLANT | [address] [place], | | | | | [address] [place] | [place] [address] | | | | | [address] [place] | [phone] | | | | | [address] | | | | | | [phone] | | | +--------+ + + + [...]
--- OUTSIDE RECORDS SUMMARY | ~2018-06-12 | XMS | Encounter Summary ---
Demographics + + + | Address | [address] | | | [place] [address] | + + + | Home Phone [...] + | Author | [facility] | | | and [place] | + + + | Organization | [facility] | | | [...] Providers + +------+ + | Care Construction Stonemason Name | Role | Phone | + [...] | [address] | [place] | | | | | [place], [place] | [place], [place] | | | | | [address] | [address] | | | | | [phone] | | | +--------+ + + + [...]
--- OUTSIDE RECORDS SUMMARY | ~2018-06-12 | XMS | Encounter Summary ---
Demographics + + + | Address | [address] | | | [place] [address] | + + + | Home Phone [...] | [facility] | | | and [place]ana | + + + | Organization | [facility] [...] Providers + +------+ + | Care Chalk Machine Operator Name | Role | Phone [...] | | [address] | [place] | | | | | [place], [place] | [place], [place] | | | | | [address] | [address] | | | | | [phone] | | | +--------+ + + + [...]
--- OUTSIDE RECORDS SUMMARY | 2018-06-12 13:48 | XMS ---
PreManage Notification: CONOR LOUISE Security Guitar Technician Events No recent Security Events currently on file CRITERIA MET - 6 ED Visits in 6 Months - [facility] - Has Care Guidelines - [facility] - 2 Visits in 30 Days CARE PROVIDERS TIEN NICHOLSON Hospitalist 05/28/2018-Current PHONE: Unknown Karena has no Care Guidelines for this patient. Care History Medical/Surgical 05/28/2018 [facility] - Patient is currently established with [facility]. If patient is seen in the ED during business hours. Please contact CHWs at [facility]. Care Recommendation: This patient has had [...] care. E.D. V[facility] (12 MO.) [facility] T[facility] 9 NOTE: Visits indicate total known visits. ED/UCC VISIT TRACKING (12 MO.) 06/12/2018 13:45 [facility] [place] TYPE: Emergency COMPLAINT: - SOB 06/11/2018 07:55 [facility] [place] [place] TYPE: Emergency COMPLAINT: - DIFFICULTY BREATHING,VOMITING 06/04/2018 06:07 [facility] [place] [place] TYPE: Emergency COMPLAINT: - SOB DIAGNOSES: - Shortness of breath - Allergy status to other drugs, medicaments and biological substances status - Radiographic dye allergy status - Other termination clerk (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 - Dyspnea, unspecified - Allergy status to narcotic agent status - Respiratory syncytial virus as the cause of diseases classified elsewhere 05/26/2018 11:57 [facility] TYPE: Emergency DIAGNOSES: - Acute respiratory distress - Chest pain, unspecified - Other ascites - Pleural effusion, not elsewhere classified 05/26/2018 07:23 [facility] [place] [place] TYPE: Emergency COMPLAINT: - FLU SYMPTOMS DIAGNOSES: - Allergy status to other drugs, medicaments and biological substances status - Other halfway (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 - Radiographic dye allergy status - Dependence on renal dialysis - Pleural effusion, not elsewhere classified - Allergy status to narcotic agent status - Shortness of breath 05/25/2018 11:53 [facility] [place] TYPE: Emergency COMPLAINT: - SOB/COUGH DIAGNOSES: - Dependence on renal dialysis - Shortness of breath - Allergy status to narcotic agent status - Pneumonia, unspecified organism - Other termination clerk (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 - Radiographic dye allergy status - Pleural effusion, not elsewhere classified - Allergy status to other drugs, medicaments and biological substances status 05/10/2018 07:20 [facility] [place] TYPE: Emergency COMPLAINT: - PREVIOUS BLOODY NOSE DIAGNOSES: - Epistaxis - Other termination clerk (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 - End stage renal [...] unspecified, uncomplicated - Epigastric pain - Other halfway (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 09/16/2017 23:06 [facility] [place] [place] TYPE: Emergency COMPLAINT: - BP PROBLEM,RENAL FAILURE DIAGNOSES: - Chronic kidney disease, unspecified - Dependence on renal dialysis - Pain, unspecified - Allergy status to narcotic agent status - Nicotine dependence, unspecified, uncomplicated - Other halfway (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 - Elevated blood-pressure reading, without diagnosis of hypertension - Patient's noncompliance with renal dialysis - Hypertensive chronic kidney disease with stage 1 through stage 4 chronic kidney disease, or unspecified chronic kidney disease - Radiographic dye allergy status INPATIENT VISIT TRACKING (12 MO.) 05/26/2018 11:57 [facility] TYPE: General Medicine DIAGNOSES: - Acute [...] specified personal risk factors, not elsewhere classified [email or web address]
[2018-06-12] MEDS ORDERED: ONDANSETRON ODT8 MG PO (18:51)
[2018-06-12] MEDS ORDERED: NORCO 5-325 TA1 EACH PO (18:51)
== END 2018-06-12 19:18 | disposition home or self-care (01) ==
LOC: ED 13:45
DX: E87.70 Fluid overload, unspecified (principal); E87.5 Hyperkalemia; N18.9 Chronic kidney disease, unspecified; Z99.2 Dependence on renal dialysis; J45.909 Unspecified asthma, uncomplicated; Z91.041 Radiographic dye allergy status; Z88.5 Allergy status to narcotic agent; Z88.8 Allergy status to other drugs, medicaments and biological substances; Z79.899 Other long term (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
CPT/HCPCS: 36415; 71046; 80053; 83880; 84132; 85025; 96374; 96375; 96376; 99284-25; J2405

== ENCOUNTER 2018-06-19 23:43 | Emergency (ER) | payer MEDICARE, OTHER ==
[~2018-06-19] VITALS: Ht 170.2 cm; Wt 66.2 kg
--- OUTSIDE RECORDS SUMMARY | ~2018-06-19 | XMS | Encounter Summary ---
Demographics + + + | Address | [address] | | | [place] [address] | + + + | Home Phone | | + + + | Preferred Language | Unknown | + + + | Marital Status | Single | + + + | Episcopal Affiliation | Unknown | + + + | Race | Unknown | + + + | Ethnic Group | Unknown | + + + Author + + + | Author | [facility] | | | and [place]ana | + + + | Organization | [facility] | | | and [...] Providers + +------+ + | Care Research Environmental Scientist Name | Role | Phone | + +------+ + | Jonathan Alonso MD | PCP | | + +------+ + Reason for Visit + + + | Reason | Comments | + + + | Kidney Transplant | Dara tip so I called her back to complete intake questionnaire. | | Pre-evaluation | She currently ingests daily marijuana edibles with no current | | | [place] medical card/auth to do so. Her MD stated she would have to | | | obtain one in [place]. I explained that we would have to close | | | out her referral until she obtains a medical/auth card for | | | medicinal use and then be re-referred. A letter would be sent to | | | her as well and she can call us with any further questions | + + + Encounter Details +--------+ + + + + | Date | Type | Department | Care Team | Description | +--------+ + + + + | 06/13/ | Telephone | [facility] | Meño Tran | Kidney Transplant | | 2019 | | [facility] | [address], [address] | Pre-evaluation | | | | KIDNEY TRANSPLANT | [address], | (Dara lvm so I | | | | [address] [place] | [place] [address] | called her back to | | | | [address] [place] | [phone] | complete intake | | | | [address] | | questionnaire. She | | | | [phone] | | currently ingests | | | | | | daily marijuana | | | | | | edibles with no | | | | | | current [place] medical | | | | | | card/auth to do so. | | | | | | Her MD stated she | | | | | | would have to obtain | | | | | | one in [place]. I | | | | | | explained that we | | | | | | would have to close | | | | | | out her referral | | | | | | until she obtains a | | | | | | medical/auth card | | | | | | for medicinal use | | | | | | and then be | | | | | | re-referred. A | | | | | | letter would be sent | | | | | | to her as well and | | | | | | she can call us with | | | | | | any further | | | | | | questions) | +--------+ + + + + Social [...] documented as of this encounter Progress Notes Elodia Hutchins - 06/13/2018 0954 PDTReferral: Dara whelan so I called her back to complete intake questionnaire. She currently ingests da kamron marijuana edibles with no current [place] medical card/auth to do so. Her MD stated she would have to obtain one in [place]. I explained that we would have to close out her referral u ntil she obtains a medical/auth card for medicinal use and then be re-referred. A letter wojovi ld be sent to her as well and she can call us with any further questions.Electronically sign ed by Elodia Hutchins at 06/13/2018 10:19 PDTdocumented in this encounter Plan of Treatment Not on filedocumented as of this encounter Visit Diagnoses Not on filedocumented in this encounter"
--- OUTSIDE RECORDS SUMMARY | ~2018-06-19 | XMS | Encounter Summary ---
Demographics + + + | Address | [address] | | | [place] [address] | + + + | Home Phone [...] | Author | [facility] | | | and Josephana | + + + | Organization | [facility] | | | and [...] Team Providers + +------+ + | Care Field Health Officer Name | Role | Phone | [...] to | | | obtain one in [place]. I explained that we would have to [...] [address] [place] | [place] [address] | called her back to | | | | [address] [place] | [phone] | complete intake | | | | [address] | | questionnaire. She | | | | [phone] | | currently ingests | | | [...] | | | | | one in [place]. I | | | | | | [...] she would have to obtain one in [place]. I explained that we would have to [...]
--- OUTSIDE RECORDS SUMMARY | ~2018-06-19 | XMS | Clinical Summary ---
Demographics + + + | Address | [address] | | | [place] [address] | + + + | Home Phone [...] | | | | | [place] [address] | | + + + + + | Thania Mallory | ECON | [address] | | | | | [place] [address] | | + + + + + | Deidra Weldon | ECON | [address] | | | | | [place] | | | | | [address] | | + + + + + Care Team Providers + +------+ + | Care Manager Of Digital Name | Role | Phone | + +------+ + | Jonathan Alonso MD | PP | | + +------+ + Source Comments DANILO is fully live on both EpicCare Ambulatory and EpicCare InPatient.[facility] Allergies + + + + + + [...] Denise | | | | | | [place], [place] | | | | | | [address] | | | | | | [phone] | | | | | | | [...] | re | [address] | [place] [address] | | | B | | | | | + +--------+ +--------+ + + | PROJECT LANDSCAPE ARCHITECT MEDICAID | PROJECT LANDSCAPE ARCHITECT | xxxxxxxx | Medica | | | | | [place] | | id | | | | | [place] | | | | | + +--------+ +--------+ + + | MEDICARE RENAL | MEDICA | xxxxxxxxxx | Agency | | RENAL DEPT [id number] | | RECIPIENT EVAL | RE | | | | [place] [address] | | | RENAL | | | [...] | | al/Fam | | 1994 | [phone] | [address] [place] | | | [address]ron | | | [address]: | [address] | | | | | | | | | | | | | [phone] | | | | | | [address]122 | | + +--------+ +--------+ + + | CORY ALVES | Kisha | Mother | [birth year]06[birth year] | Home: | [address] | | | l | | 1899 | [phone] | [address] [place] | | | [place] | | | [address] | [address] | | | g | | | | | + +--------+ +--------+ + +
--- OUTSIDE RECORDS SUMMARY | ~2018-06-19 | XMS | Encounter Summary ---
Demographics + + + | Address | [address] | | | [place] [address] | + + + | Home Phone | | + + + | Preferred Language | Unknown | + + + | Marital Status | Single | + + + | Confucianist Affiliation | Unknown | + + + | Race | Unknown | + + + | Ethnic Group | Unknown | + + + Author + + + | Author | [facility] | | | and Josephana | + + + | Organization | [facility] [...] Providers + +------+ + | Care Research Professor Name | Role | Phone | + +------+ + | Jonathan Alonso MD | PCP | | + +------+ + Reason for Visit Evaluate & Treat (Routine) + +--------+ + + + + | Status | Reason | Specialty | Diagnoses / | Referred By | Referred To | | | | | Procedures | Contact | Contact | + +--------+ + + + + | Authorized | | Nephrology | Diagnoses | Rufino, | Conrado, | | | | | ESRD (end | Sudhakar Castellanos, | Jorje Obrien DO | | | | | stage renal | [address] | [address] [place] [address] | | | | | disease) | Shun Griffin | [place] | | | | | (HCC) | [address] | [address] | | | | | Anemia in | [place], [place] | [place], [place] | | | | | ESRD | [address] | [address] Phone: | | | | | (end-stage | Phone: | [phone] | | | | | renal | [phone] | Fax: | | | | | disease) | Fax: | [phone] | | | | | (FORMERLY [facility]) | [phone] | | | | | | Procedures | | | | | | | SC ESRD | | | | | | | RELATED SVC | | | | | | | MONTHLY | | | | | | | 20&/> YR OLD | | | | | | | 4/> VISITS | | | + +--------+ + + + + Encounter Details +--------+ + + + + | Date | Type | Department | Care Team | Description | +--------+ + + + + | 04/23/ | Off-Site | [facility] | Jorje Camp | ESRD (end stage | | 2019 | Visit | NEPHROLOGY [address] | M, DO [address] | renal disease) (FORM[facility]LY [facility]) | | | | [address] | [place], [place] [address] | (Primary Dx) | | | | [place] | [place] | | | | | [address] | [address] | | | | | [phone] | | | +--------+ + + + [...] + | Blood Pressure | 147/94 | 04/23/2018 1837 PST | + + + + | Pulse | - | - | + + + + | Temperature | 36.2 C (97.2 F) | 04/23/20187 PST | + + + + | Respiratory Rate | - | - | + + + + | Oxygen Saturation | - | - | + + + + | Inhaled Oxygen | - | - | | Concentration | | | + + + + | Weight | - | - | + + + + | Height | - | - | + + + + | Body Mass Index | - | - | + + + + documented in this encounter Progress Notes Jorje Camp DO - 04/23/2018 0945 PSTFormatting of this note might be different fro m the original. Subjective: DIALYSIS NOTE Patient ID: Dara Weldon is a 23 y.o. female. 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 She also has anemia secondary to CKD, SHPTH, centripetal obesity, ongoing nicotine addiction, despite advice to quit, and chronic THC dependence. Unfortunately she is consistently plagued by intermittent unexplained absence from schedule d treatments. Also, she takes herself off early despite very large inter-dialytic weight ga ins. I have discussed with her at length, and detailed fashion, that this can lead to a dil ated cardio myopathy, and increased all cause CV mortality. She appears to have little insi ght into preventive health maintenance, or lifestyle changes. Outpatient Prescriptions Marked as Taking for the 04/23/18 encounter (Off-Site Visit) with Camille Camp DO Medication Sig Dispense Refill albuterol 90 mcg/puff inhaler Inhale 2 puffs into the lungs every 6 hours as needed for Wheezing. 1 Inhaler 11 clopidogrel (PLAVIX) 75 mg tablet Take 1 tablet by mouth Daily. 30 tablet 11 doxercalciferol (HECTOROL) 2 mcg/mL injection Inject 0.5 mLs into the vein Three times a week. Per dialysis clinic protocol (Patient taking differently: Inject 1.5 mcg into the ve in Three times a week. Per dialysis clinic protocol) epoetin jenna (EPOGEN,PROCRIT) 3,000 units/mL injection Inject 3,000 Units under the ski n Three times a week. etelcalcetide (PARSABIV) 2.5 mg/0.5 mL injection Inject 2.5 mg into the vein Three time s a week. hydrOXYzine (ATARAX) 50 MG tablet Take 1 tablet by mouth nightly as needed for Itching. 60 tablet 1 iron sucrose (VENOFER) 20 mg/mL injection Inject 2.5 mLs into the vein Once a week. losartan (COZAAR) 100 MG tablet Take 1 tablet by mouth [...] and Rash Lisinopril cough Objective: BP (!) 147/94 | Temp 36.2 C (97.2 F) EDW 78 kg Physical Exam Heart: Regular rate and rhythm with no S3, S4, murmur or rub. Lungs: CTA bilaterally. No rales or wheezes. Abdomen: Soft, obese, nontender, normoactive bowel sounds.. Extremities: No clubbing, cyanosis, trace edema LAB: BUN 56, Cr 8.7, K+ 4.4, HCO3 24, albumin 3.7, Ca++ 9.2, phosphorus 6.6, PTH 753, Hb 10.9, TSat 23%, ferritin 457, spKT/V = 1.50 . Assessment: 1. ESRD-- her current Rx is adequate if she would comply with 3 full treatments/week. Unf ortunately , she has a cycle of noncompliant behavior which is difficult to arrest. 2. Hypertension-- This is hampered by excessive fluid gains between treatments. 3. 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 PTH is slowly improving on Parsabiv, a nd IV Hectorol. 4. Nutrition--appetite is good. 5. Anemia secondary to CKD-- Her T. Sat. appears adequate for erythropoiesis. Her Hb ap pears stable on the current EPO algorithm. 6. Centripetal obesity-- about same. 7. 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 8. Transplantation--not at all a candidate and at high risk for graft loss due to her setvie turity and lack of insight into her CKD. 9. Self-destructive behavior-- she still declines formal counseling sessions. 10. Chronic Nicotine and THC dependence-- see above. Plan: 1. Dara does understand that her current better of behavior does not make her an optimal candidate for renal allograft. This has been explained to her on several occasions. 2. Will continue to offer her formal counseling otherwise I think her current regimen is s atisfactory. 3. Will recheck her in 2 weeks. : Shade Fina Alonso MD, PhD documented in this e ncounter Plan of Treatment Not on filedocumented as of this encounter Visit Diagnoses + + | Diagnosis | + + | ESRD (end stage renal disease) (HCC) - Primary End stage renal disease | + + documented in this encounter"
--- OUTSIDE RECORDS SUMMARY | ~2018-06-19 | XMS | Encounter Summary ---
Demographics + + + | Address | [address] | | | [place] [address] | + + + | Home Phone | | + + + | Preferred Language | Unknown | + + + | Marital Status | Single | + + + | Rastafari Affiliation | Unknown | + + + | Race | Unknown | + + + | Ethnic Group | Unknown | + + + Author + + + | Author | [facility] | | | and Josephana | + + + | Organization | [facility] [...] Team Providers + +------+ + | Care Fans Clerk Name | Role | Phone | + +------+ + | Jonathan Alonso MD | PCP | | + +------+ + Encounter Details +--------+ + + + + | Date | Type | Department | Care Team | Description | +--------+ + + + + | 06/11/ | Abstract | [facility] | Meño Tran | | | 2019 | | [facility] | MD Linda [address] | | | | | KIDNEY TRANSPLANT | [address] [place], | | | | | [address] [place] | [place] [address] | | | | | [address] [place] [place] | [phone] | | | | | [address] | | | | | | [phone] | | | +--------+ + + + [...]
--- OUTSIDE RECORDS SUMMARY | ~2018-06-19 | XMS | Encounter Summary ---
Demographics + + + | Address | [address] | | | [place] [address] | + + + | Home Phone [...] + + + | Author | [employer] | + + + | Organization | [facility] | + + [...] Providers + +------+ + | Care Support Service Tech Name | Role | Phone | + +------+ + | Jonathan Alonso MD | PCP | | + +------+ + Encounter Details +--------+ + + + + | Date | Type | Department | Care Team | Description | +--------+ + + + + | 06/12/ | Telephone | [facility] [place] | Carolina Mahmood DO | | | 2018 | | Cardiology [place] | [address] | | | | | [address] | [place], [place] | | | | | [place], [place] | [address] | | | | | [address] | | | | | | [phone] | | | +--------+ + + + [...] Description | +--------+---------+ + + + | 06/28/ | Office | Cardiology | Gretchen Teran | | | 2019 | Visit | | [address] | | | | | | [place] [address] | | | | | | [place] [address] | | | | | | [phone] | | | | | | | | +--------+---------+ + + + as of this encounter Visit Diagnoses Not on filein this encounter"
--- OUTSIDE RECORDS SUMMARY | ~2018-06-19 | XMS | Encounter Summary ---
Demographics + + + | Address | [address] | | | [place] [address] | + + + | Home Phone [...] + + + | Author | [employer] | + + + | Organization | [facility] | + + + [...] Team Providers + +------+ + | Care Millinery Designer Name | Role | Phone | + +------+ + | Tien Alonso MD | PCP | | + +------+ + Encounter Details +--------+---------+ + + + | Date | Type | Department | Care Team | Description | +--------+---------+ + + + | 06/14/ | Office | [facility] [place] | Carolina Mahmood DO | Systolic heart | | 2019 | Visit | Cardiology [place] | [address] | failure, unspecified | | | | [address] | [place], [place] | HF chronicity (HCC) | | | | [address] | [address] | (Primary Dx); | | | | [place] [address] | | Severe tricuspid | | | | [phone] | | regurgitation; | | | | | | Pulmonary HTN (FORM[facility]LY [facility]); | | | | | | ESRD (end stage | | | | | | renal disease) (FORMERLY [facility]) | +--------+---------+ + + + Social History [...] + + + | Blood Pressure | 126/80 | 06/14/2018 3:55 PM PDT | + + + + | Pulse | 104 | 06/14/2018 3:55 PM PDT | + + + + | Temperature | - | - | + + + + | Respiratory Rate | - | - | + + + + | Oxygen Saturation | 97% | 06/14/2018 3:55 PM PDT | + + + + | Inhaled Oxygen | - | - | | Concentration | | | + + + + | Weight | 68.3 kg (150 lb 8 | 06/14/2018 3:55 PM PDT | | | oz) | | + + + + | Height | 170.2 cm (5' 7") | 06/14/2018 3:55 PM PDT | + + + + | Body Mass Index | 23.57 | 06/14/2018 3:55 PM PDT | + + + + in this encounter Progress Notes Carolina Mahmood DO - 06/14/2018 3:40 PM PDTFormatting of this note may be different from th e jared. [facility] Cardiology Consult Note Reason for Consultation: hospital follow up Requesting Physician: Tien Alonso History Obtained From: patient HISTORY OF PRESENT ILLNESS: The patient is a 23-year-old female who presents to the cardiology clinic to follow-up from her recent hospitalization. Per my inpatient note: In summary, this is a 23-year-old female with a history of end-stage renal disease on hemo dialysis (of which she is sometimes non-compliant) who presents with congestive heart failur e with significant right pleural effusion and abdominal ascites. She has undergone right tho racentesis and paracentesis. Echocardiogram demonstrates new onset ejection fraction of 25% as well as severe tricuspid regurgitation, mild to moderate mitral regurgitation, and mild r ight ventricular dysfunction. Possible etiologies of her cardiomyopathy include viral myocar ditis, ischemic cardiomyopathy, auto immune related, familial, idiopathic etc. At this time, will focus on uptitrating her heart failure therapies and working towards getting her more euvolemic through dialysis. She was started on heart failure therapies with metoprolol, isordil, and hydralazine. I was hesitant to start her on lisinopril because she had been non-compliant with her dialysis an d had been hyperkalemic on blood work during that admission. Since she has been discharged, she has been feeling well. She has been going to dialysis as scheduled. She was complaining of stomach pains toward the end of her dialysis sessions, and her sessions were shorter as a result. Yesterday, she was able to undergo a full dialysis session. She has been weighing h erself at home and her weights have been stable at 150-155lbs. She is tolerating her heart f ailure therapies well. She has no other complaints today. She had a repeat echocardiogram done on 06/12/18 which demonstrated an EF of 35%. She also swanson s moderate MR, severe TR, RVSP 76mmHg. Review of Systems PAST MEDICAL & SURGICAL HISTORY Past Medical History Diagnosis Date Anemia Clotted dialysis access ([facility]LY [facility]) 2014 ESRD (end stage renal disease) ([facility]) HSP (Henoch-Schonlein purpura) nephritis ([facility]) Hypertension Past Surgical History Procedure Laterality Date ABDOMINAL SURGERY AV FISTULA PLACEMENT AV FISTULA PLACEMENT Left 04/08/2014 Procedure: AV FISTULA; Surgeon: Rik Simon MD; Location: [facility] OR; Service: Vascula r; Laterality: Left; cephalic AV FISTULA REPAIR Left 03/07/2014 Procedure: AV FISTULA - GRAFT REPAIR/REVISION; Surgeon: Rik Simon MD; Location: [facility] OR; Service: Vascular; Laterality: [...] HOSPITAL MAIN OR; Service: Vascular; Laterality: Left; MEDICATIONS Home Medications Outpatient Encounter Prescriptions as of 06/14/2018 Medication Sig Dispense Refill clopidogrel (PLAVIX) 75 MG tablet Take 75 mg by mouth daily. Indications: Treatment to Prevent a Blood Clot in a Vascular Stent HYDROcodone-acetaminophen (NORCO) 5-325 MG per tablet Take 2 tablets by mouth nightly a s needed for Pain. ipratropium-albuterol (DUO-NEB) 0.5-2.5 mg/3mL Take 3 mLs by nebulization. metoprolol (TOPROL-XL) 25 MG 24 hr tablet Take 1 tablet by mouth daily. 30 tablet 2 ondansetron (ZOFRAN) 8 MG tablet Take 4 mg by mouth [...] daily with me als. 180 tablet 2 [DISCONTINUED] hydrALAZINE (APRESOLINE) 50 MG tablet Take 1 tablet by mouth 3 (three) t imes daily. 90 tablet 3 [DISCONTINUED] isosorbide dinitrate (ISORDIL) 20 MG tablet Take 20 mg by mouth 3 (three ) times daily. lisinopril (ZESTRIL) 5 MG tablet Take 1 tablet by mouth daily. 30 tablet 11 [DISCONTINUED] Etelcalcetide HCl (PARSABIV IV) Inject into the vein 3 (three) times a week. [DISCONTINUED] isosorbide dinitrate (ISORDIL) 40 MG tablet Take 1 tablet by mouth 3 (th ree) times daily. 90 tablet 2 [DISCONTINUED] sucroferric oxyhydroxide (VELPHORO) 500 MG chewable tablet Take 500 mg b y mouth 3 (three) times daily with meals. No facility-administered encounter medications on file as of 06/14/2018. Allergies Allergies Allergen Reactions Fentanyl Itching Iodinated Diagnostic Agents Itching Pt c/o face itching during fistulagram Morphine Rash Ritalin [Methylphenidate Hcl] Other (See Comments) Patient says skin was crawling Tape [Adhesive Tape] Rash Use silk tape only FAMILY HISTORY History reviewed. No pertinent family history. SOCIAL HISTORY Social History Social History Marital status: Single [...] on file PHYSICAL EXAM Vital Signs: BP 126/80 (BP Location: Right upper arm, Patient Position: Sitting) | Pulse 1 04 | Ht 1.702 m (5' 7") | Wt 68.3 kg (150 lb 8 oz) | SpO2 97% | BMI 23.57 kg/m Physical Exam GENERAL: Well developed, well nourished, in no distress. Appears approximately stated age . HEENT: Normocephalic, atraumatic. EYES: PERRL, sclerae anicteric, no xanthelsasmas NECK: JVD present, lymphadenopathy, thyromegaly, bruits. Carotid pulses are 2+ bilatera lly LUNGS: Clear bilaterally, with no rales, rhonchi or wheezing noted, respirations unlabored HEART: Nondisplaced PMI, regular rate and rhythm, S1, S2 normal. II/ systolic murmur, no rubs or gallops noted. ABDOMEN: Soft, nontender, no organomegaly, masses or bruits. Bowel sounds are normal in a ll 4 quadrants. EXTREMITIES: No edema. Radial pulses 2+ bilaterally. Femoral pulses are 2+ bilaterally wi thout bruits. DP and PT pulses are 2+ bilaterally. SKIN: Warm and dry, capillary refill is normal, no lesions. NEUROLOGIC: Awake, alert and oriented x 3. No focal motor deficits. PSYCHIATRIC: Appropriate, affect appears normal DATA Results for DARA WELDON ( ) as of 06/15/2018 19:40 Ref. Range 06/01/2018 04:43 WBC Latest Ref Range: 3.80 - 11.00 K/uL 5.40 RBC Latest Ref Range: 3.70 - 5.10 M/uL 2.95 (L) HGB Latest Ref Range: 11.3 - 15.5 g/dL 10.7 (L) HCT Latest Ref Range: 34.0 - 46.0 % 32.4 (L) MCV Latest Ref Range: 80.0 - 100.0 fl 109.7 (H) MCH Latest Ref Range: 27.0 - 34.0 pg 36.2 (H) MCHC Latest Ref Range: 32.0 - 35.5 g/dL 33.0 RDW Latest Ref Range: 37 - 53 fl 56.9 (H) Platelets Latest Ref Range: 150 - 400 K/uL 119 (L) Results for DARA WELDON ( ) as of 06/15/2018 19:40 Ref. Range 06/01/2018 04:43 SODIUM Latest Ref Range: 135 - 145 mmol/L 139 POTASSIUM Latest Ref Range: 3.5 - 4.9 mmol/L 4.7 CHLORIDE Latest Ref Range: 99 - 109 mmol/L 101 CO2 Latest Ref Range: 23 - 32 mmol/L 33 (H) ANION GAP AGAP Latest Ref Range: 5 - 20 mmol/L 10 GLUCOSE Latest Ref Range: 65 - 99 mg/dL 82 BUN Latest Ref Range: 8 - 25 mg/dL 27 (H) CREATININE Latest Ref Range: 0.50 - 1.00 mg/dL 7.2 (H) BUN/CREAT Unknown 4 CALCIUM Latest Ref Range: 8.5 - 10.5 mg/dL 9.7 TOTAL PROTEIN Latest Ref Range: 6.3 - 8.2 g/dL 6.5 ALBUMIN Latest Ref Range: 3.6 - 5.0 g/dL 3.0 (L) GLOBULIN Latest Ref Range: 1.3 - 4.9 g/dL 3.5 TBIL Latest Ref Range: 0.1 - 1.5 mg/dL 0.8 ALK PHOS Latest Ref Range: 35 - 115 U/L 138 (H) AST Latest Ref Range: 10 - 45 U/L 97 (H) ALT Latest Ref Range: 10 - 65 U/L 231 (H) EGFR Latest Ref Range: >60 mL/min/1.73m2 7 (L) A/G Latest Ref Range: 1.0 - 2.4 0.9 (L) EK05/28/18 Normal sinus rhythm 75BPM, poor R wave progression, non specific ST-T wave gwendolyn nges Last Echo: 06/12/18 Impression 1. Overall left ventricular systolic function is moderate-severely impaired with, an EF bet ween 30 - 35 %. 2. Restrictive LV diastolic filling pattern, consistent with elevated LA pressure and sever e dysfunction (grade III). 3. There is paradoxical/dysynergic septal motion consistent with right ventricular volume o verload and/or elevated right ventricular end-diastolic pressure. 4. Moderate mitral regurgitation is present. 5. Severe tricuspid regurgitation present. 6. There is severe pulmonary hypertension. 7. Bowing of interatrial septum to the left, consistent with elevated right side pressures. 05/27/18 Impression 1. Sinus rhythm. 2. A 2-dimensional [...] 17. The mitral valve is normal. 18. Azhm-fe-iknbxmpw eccentric mitral regurgitation is present. 19. Severe [...] No mass visualized 27. No clot visualized Last stress test: Last cath: Carotid US: AAA screening: Lower extremity US: OTHERS: ASSESSMENT & PLAN 1. Systolic Heart Failure EF 30-35% 2. Moderate MR 3. Severe TR 4. Pulmonary HTN 2. ESRD on HD 3. Anemia 4. Thrombocytopenia 5. Transaminitis - The patient is a 23 yo female with a PMH of ESRD on HD. She recently presented to the [facility] after missing several dialysis sessions in CHF. Echocardiogram at the time demonstrate d EF of 20-25% and severe TR and moderate MR. She was dialyzed and started on heart failure therapies. She had a repeat echo on 06/12/18 which demonstrated an EF of 30-35%. Plan to optim ize her heart failure therapies and repeat an echo in 3 months. If her EF is still depressed , will consider coronary angiography/right heart cath. Will also need to consider ICD therap y/referral to advanced heart failure center. She has demonstrated compliance with dialysis a nd medical therapy since discharge. Will switch isordil/hydralazine to valsartan 40mg po beck ly with close follow up bloodwork. - DC isordil/hydralazine - start valsartan 40mg po daily - obtain blood work on Monday, CMP to check LFTs as well - If she tolerates valsartan well, will consider switching to Entresto. - continue metoprolol succinate 25mg po daily - Will plan for follow up in 2 weeks with Gretchen Teran for heart failure therapy tit [facility]. Thank you for allowing me to participate in the care of this patient. Primary Care Physician: TIEN Mahmood, 06/14/2018in this encounter Plan of Treatment +--------+---------+ + + + | Date | Type | Specialty | Care Team | Description | +--------+---------+ + + + | 06/28/ | Office | Cardiology | Gretchen Teran | | | 2019 | Visit | | [address] | | | | | | [address] | | | | | | [place] [address] | | | | | | [phone] | | | | | | | | +--------+---------+ + + + + +--------+ + + | Name | Priori | Associated Diagnoses | Order Schedule | | | ty | | | + +--------+ + + | Comprehensive metabolic panel | Routin | Systolic heart | Expected: | | | e | failure, unspecified | 06/14/2018, Expires: | | | | HF chronicity (HCC) | 06/15/2019 | + +--------+ + + as of this encounter Visit Diagnoses + + | Diagnosis | + + | Systolic heart failure, unspecified HF chronicity (HCC) - Primary | + + | Severe tricuspid regurgitation | + + | Diseases of tricuspid valve | + + | Pulmonary HTN (HCC) | + + | Other chronic pulmonary heart diseases | + + | ESRD (end stage renal disease) (HCC) | + + | End stage renal disease | + +
--- OUTSIDE RECORDS SUMMARY | ~2018-06-19 | XMS | Encounter Summary ---
Demographics + + + | Address | [address] | | | [place] [address] | + + + | Home Phone [...] + + + | Author | [facility] [employer] | + + + | Organization | [facility] | + + + [...] Team Providers + +------+ + | Care Ply Bander Name | Role | Phone | + +------+ + | Jonathan Alonso MD | PCP | | + +------+ + Encounter Details +--------+ + + + + | Date | Type | Department | Care Team | Description | +--------+ + + + + | 06/12/ | Ancillary | [facility] | Jonathan Alonso, | Dyspnea, unspecified | | 2019 | Orders | ECHO | MD [address], | type | | | | | [address] [place], | | | | | | [place] [address] | | | | | | [phone] | | | | | | | [...] Description | +--------+---------+ + + + | 04/25/ | Office | Cardiology | Gretchen Teran | | | 2018 | Visit | | [address] | | | | | | [address] | | | | | | [place] [address] | | | | | | [phone] | | | | | | | | +--------+---------+ + + + as of this encounter Results ECHO outside interpretation standard (06/12/2018 2:52 PM) + + + | Impressions | Performed At | + + + | 1. Overall left ventricular systolic function is moderate-severely | [facility] | | impaired with, an EF between 30 - 35 %. 2. Restrictive LV diastolic | RADIOLOGY | | filling pattern, consistent with elevated [...] DARA WELDON Date of : 1995 | [facility] | | Performing Physician: René Noonan MD | RADIOLOGY | | | | | INDICATIONS Severe [...] | pressures. MEASUREMENTS IVC: 2.62 cm LA | | | Major: 4.62 cm EDV(Teich): 109.26 ml IVSd: 1.12 cm | | | LVIDd: 4.83 cm LVPWd: 1.29 cm LVOT Diam: 1.96 cm | | | %FS: 15.22 % EF(Teich): 32.18 % ESV(Teich): 74.10 ml | | | LVIDs: 4.09 cm SV(Teich): 35.16 ml RA Major: 4.91 cm RV | | | Major: 8.03 cm RV Minor: 4.32 cm RVIDd: 4.05 cm RV | | | Minor: 3.75 cm LVEF MOD A2C: 38.39 % SV MOD A2C: 68.28 | | | ml LVEF MOD A4C: 31.07 % SV MOD A4C: 50.52 ml EF | | | Biplane: 34.63 % LVEDV MOD BP: 167.14 ml LVESV MOD BP: | | | 109.26 ml LVEDV MOD A2C: 177.83 ml LVLd A2C: 9.28 cm LVEDV | | | MOD A4C: 162.56 ml LVLd A4C: 9.05 cm LVESV MOD A2C: | | | 109.55 ml LVLs A2C: 8.39 cm LVESV MOD A4C: 112.04 ml LVLs | | | A4C: 8.20 cm LAESV(A-L): 56.58 ml LAESV Index (A-L): | | | 31.60 ml/m2 LAAs A2C: 18.56 cm2 LAESV A-L A2C: 58.49 ml | | | LAESV MOD A2C: 54.57 ml LALs A2C: 5.00 cm LAAs A4C: | | | 17.96 cm2 LAESV A-L A4C: 52.99 ml LAESV MOD A4C: 44.93 ml | | | LALs A4C: 5.18 cm LAESV(MOD BP): 49.83 ml RAAs: 18.33 | | | cm2 RAESV A-L: 57.01 ml RAESV MOD: 56.24 ml RALs: 5.02 | | | cm TAPSE: 1.98 cm AV Env.Ti: 227.35 ms AV maxP.22 | | | mmHg AV meanP.25 mmHg AV Vmax: 1.59 m/s AV Vmean: | | | 1.06 m/s AV VTI: 24.30 cm TIMA Vmax: 2.68 cm2 TIMA (VTI): | | | 2.73 cm2 AVAI Vmax: 0.00 cm2/m2 AVAI (VTI): 0.00 cm2/m2 | | | LVOT Env.Ti: 210.72 ms LVOT maxP.99 mmHg LVOT | | | meanP.87 mmHg LVSI Dopp: 37.17 ml/m2 LVSV Dopp: | | | 66.54 ml LVOT Vmax: 1.41 m/s LVOT Vmean: 1.03 m/s LVOT | | | VTI: 21.88 cm MV A Shahid: 0.39 m/s MV Dec Keith: 9.46 m/s2 | | | MV DecT: 106.01 ms MV E Shahid: 1.00 m/s MV E/A Ratio: | | | 2.54 E/E' Sept: 23.82 E' Lat: 0.08 m/s E' Sept: 0.04 | | | m/s RAP: 15 mmHg RV S': 0.11 m/s RVSP: 67.64 mmHg TR | | | maxP.64 mmHg TR Vmax: 3.61 m/s Stockkeeper: | | | Authenticated by: René Noonan MD Report Date/Time: -- | | | [id number]:15:25 | | + + + + + | Procedure Note | + + | Sonido Steele Results In - 06/12/2018 4:15 PM PDT Patient Name: Anders WELDON of | | : 1995Accession: [id number] Physician: René Noonan MD | | INDICATIONS Sev | | ere Dyspnea, ESRD, dialysis yesterdayCONCLUSIONS 1. Overall left ventricular | | systolic function is moderate-severely impaired with, an EF between 30 - 35 %.2. | | Restrictive LV diastolic filling pattern, [...] the left, consistent with elevated right side pressures.FINDINGS--------ECG | | rhythm: Sinus rhythm.Study: A 2-dimensional transthoracic echocardiogram with m-mode, | | spectral and color flow Doppler was perfomed. Study: This was a technically adequate | | study.Left Ventricle: Overall left ventricular systolic function is moderate-severely | | impaired with, an EF between 30 - 35 %. Left Ventricle: The left ventricle cavity size | | is normal. Left Ventricle: There is moderate concentric left ventricular hypertrophy. | | Left Ventricle: There is moderate global hypokinesis of LV contractility. Left | | Ventricle: Restrictive LV diastolic filling pattern, consistent with elevated LA | | pressure and severe dysfunction (grade III). Left Ventricle: There is | | paradoxical/dysynergic septal motion consistent with right ventricular volume overload | | and/or elevated right ventricular end-diastolic pressure.Right Ventricle: The right | | ventricle is moderately enlarged.Left Atrium: The left atrium is mildly enlarged.Right | | Atrium: The right atrium is moderately enlarged.Aortic Valve: The aortic valve is | | trileaflet. Aortic Valve: There is mild aortic regurgitation. Aortic Valve: There is no | | evidence of aortic stenosis.Mitral Valve: Mitral valve is mildly thickened. Mitral | | Valve: Moderate mitral regurgitation is presentMitral Valve: , predominately a | | posteriorly directed jet.Tricuspid Valve: The tricuspid valve appears structurally | | normal. Tricuspid Valve: Severe tricuspid regurgitation present. Tricuspid Valve: The | | right ventricular systolic pressure (pulmonary artery systolic pressure), as measured by | | Doppler, is 67.65mmHg. Tricuspid Valve: There is severe pulmonary hypertension.Pulmonic | | Valve: Pulmonic valve appears structurally normal. Pulmonic Valve: Mild pulmonic | | regurgitation.Pericardium: There is a moderate pericardial effusion is located near the | | right atrium. Pericardium: There is no evidence of cardiac tamponade.IVC/Hepatic Veins: | | The IVC is normal size (1.5-2.5cm) and collapses <50% with sniff, consistent with | | central venous pressures of 10-15mmHg.Pulmonary Veins: The flow patterns, measured by | | Doppler, indicate systolic blunting.Septum: Bowing of interatrial septum to the left, | | consistent with elevated right side pressures.MEASUREMENTS IVC: 2.62 cmLA | | Major: 4.62 [...] (A-L): 31.60 | | ml/m2LAAs A2C: 18.56 [id number] A-L A2C: 58.49 mlLAESV MOD A2C: 54.57 mlLALs A2C: | | 5.00 cmLAAs A4C: 17.96 [id number] A-L A4C: 52.99 mlLAESV MOD A4C: 44.93 mlLALs A4C: | | 5.18 cmLAESV(MOD BP): 49.83 mlRAAs: 18.33 [id number] A-L: 57.01 mlRAESV MOD: | | 56.24 mlRALs: 5.02 cmTAPSE: 1.98 cmAV Env.Ti: 227.35 msAV maxP.22 mmHgAV | | meanP.25 mmHgAV Vmax: 1.59 m/Elizabeth Vmean: 1.06 m/Elizabeth VTI: 24.30 cmAVA Vmax: | | 2.68 cm2AVA (VTI): 2.73 [id number] Vmax: 0.00 cm2/m2AVAI (VTI): 0.00 cm2/m2LVOT | | Env.Ti: 210.72 msLVOT maxP.99 mmHgLVOT meanP.87 mmHgLVSI Dopp: 37.17 | | ml/m2LVSV Dopp: 66.54 mlLVOT Vmax: 1.41 m/sLVOT Vmean: 1.03 m/sLVOT VTI: 21.88 | | cmMV A Shahid: 0.39 m/sMV Dec Keith: 9.46 m/s2MV DecT: 106.01 msMV E Shahid: 1.00 | | m/sMV E/A Ratio: 2.54 E/E' Sept: 23.82 E' Lat: 0.08 m/sE' Sept: 0.04 m/sRAP: | | 15 mmHgRV S': 0.11 m/sRVSP: 67.64 mmHgTR maxP.64 mmHgTR Vmax: 3.61 | | m/sSonographer: Authenticated by: René Noonan MDReport Date/Time: -- | | [id number]:15:25IMPRESSION:1. Overall left ventricular systolic function is | | moderate-severely impaired with, an EF between 30 - 35 %.2. Restrictive LV diastolic | | filling pattern, consistent with elevated LA pressure and severe dysfunction (grade | | III).3. There is paradoxical/dysynergic septal motion consistent with right ventricular | | volume overload and/or elevated right ventricular end-diastolic pressure.4. Moderate | | mitral regurgitation is present.5. Severe tricuspid regurgitation present.6. There is | | severe pulmonary hypertension.7. Bowing of interatrial septum to the left, consistent | | with elevated right side pressures. | |ESV(Teich): 74.10 [...] A Shahid: 0.39 m/s | |MV Dec Keith: 9.46 m/s2 | |MV DecT: 106.01 ms | |MV E Shahid: 1.00 m/s | |MV E/A Ratio: 2.54 | |E/E' Sept: 23.82 | |E' Lat: 0.08 m/s | |E' Sept: 0.04 m/s | |RAP: 15 mmHg | |RV S': 0.11 m/s | |RVSP: 67.64 mmHg | |TR maxP.64 mmHg | |TR Vmax: 3.61 m/s | | | |Stockkeeper: | |Authenticated by: René Noonan MD | |Report Date/Time: -- [id number]:15:25 | | | |IMPRESSION: | |1. Overall [...] elevated right side pressures. | + + + + + + + | Performing | Address | City/State/Zipcode | Phone Number | | Organization | | | | + + + + + | [facility] | [address] | [place] [address] | | + + + + + in this encounter Visit Diagnoses + + | Diagnosis | + + | Dyspnea, unspecified type | + +"
--- OUTSIDE RECORDS SUMMARY | ~2018-06-19 | XMS | Encounter Summary ---
Demographics + + + | Address | [address] | | | [place] [address] | + + + | Home Phone [...] | Author | [facility] | | | and [place] | + + + | Organization | [facility] | | | and [place]ana [...] Providers + +------+ + | Care Medical Billing Coordinator Name | Role | Phone | [...] | | [address] | [place] | | | | | [place], [place] | [place], [place] | | | | | [address] | [address] | | | | | [phone] | | | +--------+ + + + [...]
--- OUTSIDE RECORDS SUMMARY | ~2018-06-19 | XMS | Encounter Summary ---
Demographics + + + | Address | [address] | | | [place] [address] | + + + | Home Phone [...] + | Author | [facility] | | | and [place] | + + + | Organization | [facility] | | | and [place] | + + + | Address | Unknown | + + + | Phone | Unavailable | + + + Support + + +---------+ + | Name | Relationship | Address | Phone | + + +---------+ + | Cory Weldon | ECON | Unknown | | + + +---------+ + | Deidra Wledon | ECON | Unknown | | + + +---------+ + | Thania Mallory | ECON | Unknown | | + + +---------+ + Care Team Providers + +------+ + | Care Contract Programmer Name | Role | Phone | [...] | | KIDNEY TRANSPLANT | [address], | | | | | [address] [place] | [place] [address] | | | | | [address] [place] | [phone] | | | | | [address] | | | | | | [phone] | | | +--------+ + + + [...]
--- OUTSIDE RECORDS SUMMARY | ~2018-06-19 | XMS | Clinical Summary ---
Demographics + + + | Address | [address] | | | [place] [address] | + + + | Home Phone [...] Author | [facility] | | | and [place] | + + + | Organization | [facility] | | | and [...] Team Providers + +------+ + | Care Billing Services Manager Name | Role | Phone [...] | | | | renal disease) ([facility]) | protocol | | | | | [...] Overview: Active Kidney Transplant Waiting List at [facility]: | | 03/07/2014 | + + [...] | | Treated by Dr. Joy, pediatric physician. | + + + +---+ | ESRD [...] declot | | but reclotted). Listed at [facility] for kidney transplant - status | [...] + + + + | 06/13/ | Abstract | | Meño Tran | | | 2018 | | | MD Linda | | +--------+ + + + + | 06/13/ | Telephone | | Meño Tran | Kidney Transplant | | 2018 | | | MD Linda | Pre-evaluation | +--------+ + + + + | 06/13/ | Telephone | | Meño Tran | Kidney Transplant | | 2018 | | | MD Linda | Pre-evaluation | | | | | | ([facility] so I | | | | | | called her back to | | | | | | complete intake | | | | | | questionnaire. She | | | | | | currently ingests | | | [...] | | | | | one in [place]. I | | | | | | [...] questions) | +--------+ + + + + | [...] | | | MD Linda | Pre-evaluation | +--------+ + + + + | [...] +--------+ +---------+--------+ | MEDICARE | MEDICA | [id number] | 05/05/19 | [phone] | | Medica | | | RE | | 13-Pre | 5 | | re | | | PART A | | sent | | | | | | AND B | | | | | | + +--------+ +--------+ +---------+--------+ | [employer] | [employer] | [id number] | | [phone] | | Medica | [...] Self | [birth year] | [address] | | | al/Fam | | 1994 | [phone] | [place] | | | [place] | | | 2 (Home) | [address] | + +--------+ +--------+ + + | Cory Weldon | Person | Father | [birth year] | [address] [facility] [facility] | | | al/Fam | | 1971 | [phone] | [place] [address] | | | [place] | | | 9 (Home) | | + +--------+ +--------+ + + Advance Directives Patient has advance care planning documents, and code status on file. For more information, please contact:[facility] [place] [address] + + + + + | Code Status | Date | Date | Comments | | | Activated | Inactivated | | + + + + + | Full Code | 02/24/2014 | 02/24/2014 | | | | 11:17 | 14:29 | | + + + + +
--- OUTSIDE RECORDS SUMMARY | ~2018-06-19 | XMS | Clinical Summary ---
Demographics + + + | Address | [address] | | | [place] [address] | + + + | Home Phone [...] + + + | Author | [employer] | + + + | Organization | [facility] | + + [...] Team Providers + +------+ + | Care Wastewater Analyst Name | Role | Phone | [...] daily. | tablet | | 0/20 | /20 | e | | hr tablet | [...] | mouth daily. | tablet | | /20 | 0/20 | e | | | | | | 19 | 20 | | + + +--------+---------+------+------+-------+ | sevelamer [...] Inject into the | | | | 04/1 | Disco | | (PARSABIV IV) | vein 3 (three) times | | | | 1/20 | ntinu | | | a week. | | | | 19 | ed | + + +--------+---------+------+------+-------+ | citalopram | Take 20 mg by mouth | | | | 03/2 | Disco | | (CELEXA) 20 MG | nightly. | | | | 9/20 | ntinu | | tablet | | | | | 19 | ed | + + +--------+---------+------+------+-------+ | sucroferric | Take 500 mg by mouth | | | | 04/1 | Disco | | oxyhydroxide | 3 (three) times | | | | 20 | ntinu | | (VELPHORO) 500 MG | daily with meals. | | | | 19 | ed | | chewable tablet | | | | | | | + + +--------+---------+------+------+-------+ | losartan (COZAAR) | Take 100 mg by mouth | | | | 03/2 | Disco | | 100 MG tablet | nightly. | | | | 20 | ntinu | | | | | | | 19 | ed | + + +--------+---------+------+------+-------+ | doxycycline | Take 100 mg by mouth | | | | 03/2 | Disco | | (VIBRA-TABS) 100 MG | 2 (two) times | | | | 20 | ntinu | | tablet | daily. | | | | 19 | ed | + + +--------+---------+------+------+-------+ | hydrALAZINE | Take 1 tablet by | 90 | 3 | 03/2 | 04/1 | Disco | | (APRESOLINE) 50 MG | mouth 3 (three) | tablet | | 9/20 | 1/20 | ntinu | | tablet | times daily. | | | 19 | 19 | ed | + + +--------+---------+------+------+-------+ | isosorbide | Take 1 tablet by | 90 | 2 | 03/2 | 04/1 | Disco | | dinitrate (ISORDIL) | mouth 3 (three) | tablet | | 9/20 | 1/20 | ntinu | | 40 MG tablet | times daily. | | | 19 | 19 | ed | + + +--------+---------+------+------+-------+ | isosorbide | Take 20 mg by mouth | | | | 04/1 | Disco | | dinitrate (ISORDIL) | 3 (three) times | | | | 1/20 | ntinu | | 20 MG tablet | daily. | | | | 19 | ed | + + +--------+---------+------+------+-------+ | lisinopril | Take 1 tablet by | 30 | 11 | 04/1 | 04/1 | Disco | | (ZESTRIL) 5 MG | mouth daily. | tablet | | 03/25 | 03/25 | ntinu | | tablet | | | | | ed | + + +--------+---------+------+------+-------+ Active Problems + + + | Problem | Noted Date | + + + | Acute systolic CHF (congestive heart failure) ([facility]) | 05/28/2018 | + + + [...] 05/26/2018 | + + + | HSP (Henoch Schonlein purpura) | 08/01/2014 | + + + [...] disease | 05/17/2012 | + + + Encounters +--------+ + + + + | Date | Type | Specialty | Care Team | Description | +--------+ + + + + | 06/14/ | Office | | Carolina Mahmood DO | Systolic heart | | 2019 | Visit | | | failure, unspecified | | | | | | HF chronicity ([facility]) | | | | | | (Primary Dx); | | | | | | Severe tricuspid | | | | | | regurgitation; | | | | | | Pulmonary HTN ([facility]); | | | | | | ESRD (end stage | | | | | | renal disease) ([facility]) | +--------+ + + + + | 06/12/ | Ancillary | | Tien Alonso, | Dyspnea, unspecified | | 2019 | Procedure | | MD | type | +--------+ + + + + | 06/12/ | Telephone | | Carolina Mahmood DO | | | 2019 | | | [...] | | | | hemodialysis ([facility]); | | | | | | [...] | | | | failure) ([facility]); | | | | | | Hypoalbuminemia; | | | | | | Anemia in ESRD | | | | | | (end-stage renal | | | | | | disease) ([facility]); ESRD | | | | | | on hemodialysis | +--------+ + + + + +---+ + | | Discharge | | | Summaries | | | - Flo, | | | Darell U, MD | | | - | | [...] | | | MRN: | | | [id number] | | | OM: | | | [...] | | went to | | | [facility] | | | with | | | increasing | | | shortness | | | of breath | | | found to | | | have right | | | pleural | | | effusion | | | who was | | | transferred | | | to [facility] | [facility] | | | [...] | | Body Fluid | | | [[id number]] | | | Collected: | | | [...] | | Body Fluid | | | [[id number]] | | | Collected: | | | [...] | | | stain | | | [[id number]] | | | Collected: | | | [...] | | | fluid | | | [[id number]] | | | Collected: | | | [...] | | | fluid | | | [[id number]] | | | Collected: | | | [...] | | | Bharat, | | | [id number] | | [address], [place] | | | [address] | | | n [place] | | | [phone] | | | [phone] 1 | | | weekLindsay | | | Mahmood, | | | [id number] | | | GOETHALS | | | DRSTE | | | [place] | | | [place] | | | [phone] | | | [phone] 1 | | | weekJennife | | | r [place], | | | [address] | | | [place] [address] | | | [address] | | | [place] | | | [phone] | | | [phone] 1 | | [...] + + + + Family History + +------+--------+ [...] | | | | | [place] [address] | | | | | | [phone] | | | | | | | [...] | Left: | SYNOVIS | | | [id number] | | 0.8x8cm - [id number]: | | Arm | | | | [...] | | | COVIDIEN | | | [id number] | | 23cmExplanted: Qty: 1 on | | | | | | [id number] / | | 04/08/2014 | | | | | | | | | | | | | | /[id number] | | | | | | | [...] | + +--------+ + + + | [facility] CARD PANEL W/O | STAT | 05/26/2018 [...] + + from Last 3 Months Results ECHO outside interpretation standard (06/12/2018 2:52 [...] DARA LOUISE Date of : 1995 | [facility] | | Performing Physician: René [...] MV A Shahid: 0.39 m/s MV Dec Barry: 9.46 m/s2 | | | MV DecT: 106.01 ms MV E Shahid: 1.00 m/s MV E/A Ratio: | | | 2.54 E/E' Sept: 23.82 E' Lat: 0.08 m/s E' Sept: 0.04 | | | m/s RAP: 15 mmHg RV S': 0.11 m/s RVSP: 67.64 mmHg TR | | | maxP.64 mmHg TR Vmax: 3.61 m/s Pelletizer: | | | Authenticated by: René Noonan MD Report Date/Time: -- | | | [id number]:15:25 | | + + + + + | Procedure Note | + + | Sonido Steele Results In - 06/12/2018 4:15 PM PDT Patient Name: Anders LOUISE of | | : 1995Accession: [id number] Physician: René Noonan MD | | INDICATIONS [...] (A-L): 31.60 | | ml/m2LAAs A2C: 18.56 [id number] A-L A2C: 58.49 mlLAESV MOD A2C: 54.57 mlLALs A2C: | | 5.00 cmLAAs A4C: 17.96 go3WNZQS A-L A4C: 52.99 mlLAESV MOD A4C: 44.93 mlLALs A4C: | | 5.18 cmLAESV(MOD BP): 49.83 mlRAAs: 18.33 ab7PVRAA A-L: 57.01 mlRAESV MOD: | | 56.24 mlRALs: 5.02 cmTAPSE: 1.98 cmAV Env.Ti: 227.35 msAV maxP.22 mmHgAV | | meanP.25 mmHgAV Vmax: 1.59 m/Elizabeth Vmean: 1.06 m/Elizabeth VTI: 24.30 cmAVA Vmax: | | 2.68 cm2AVA (VTI): 2.73 bz4HXFS Vmax: 0.00 cm2/m2AVAI (VTI): 0.00 cm2/m2LVOT | | Env.Ti: 210.72 msLVOT maxP.99 mmHgLVOT meanP.87 mmHgLVSI Dopp: 37.17 | | ml/m2LVSV Dopp: 66.54 mlLVOT Vmax: 1.41 m/sLVOT Vmean: 1.03 m/sLVOT VTI: 21.88 | | cmMV A Shahid: 0.39 m/sMV Dec Barry: 9.46 m/s2MV DecT: 106.01 msMV E Shahid: 1.00 | | m/sMV E/A Ratio: 2.54 E/E' Sept: 23.82 E' Lat: 0.08 m/sE' Sept: 0.04 m/sRAP: | | 15 mmHgRV S': 0.11 m/sRVSP: 67.64 mmHgTR maxP.64 mmHgTR Vmax: 3.61 | | m/sSonographer: Authenticated by: René Noonan MDReport Date/Time: -- | | [id number]:15:25IMPRESSION:1. Overall left ventricular systolic function is | [...] A Shahid: 0.39 m/s | |MV Dec Barry: 9.46 m/s2 | |MV DecT: 106.01 ms | |MV E Shahid: 1.00 m/s | |MV E/A Ratio: 2.54 | |E/E' Sept: 23.82 | |E' Lat: 0.08 m/s | |E' Sept: 0.04 m/s | |RAP: 15 mmHg | |RV S': 0.11 m/s | |RVSP: 67.64 mmHg | |TR maxP.64 mmHg | |TR Vmax: 3.61 m/s | | | |Pelletizer: | |Authenticated by: René Noonan MD | |Report Date/Time: -- 67_[id number]_01:15:25 | | | |IMPRESSION: | |1. Overall [...] [facility] | [address] | [place] [address] | | + + + + + CBC W/Auto Diff (Reflex to Manual) (06/01/2018 4:43 AM)Only the most recent of 6 results w temoin the time period is included. + + [...] [address] | | [address], | | | | | [place] [address] | | | | |Testing performed at [facility], [address] [facility], [place] [address] | | | | | | | | + + + + + + + | Specimen | + + | Blood | + + + + + + + | Performing | Address | City/State/Zipcode | Phone Number | | Organization | | | | + + + + + | [facility] | [address] | [place] [address] | [phone] | | LABORATORY | [address] | | [...] | | | | | performed at [facility], [address] | | | | | [facility], | | | | | [place] [address] | | | + + + + + + + | Specimen | + + | Blood | + + + + + + + | Performing | Address | City/State/Zipcode | Phone Number | | Organization | | | | + + + + + | [facility] | [address] | [place] [address] | [phone] | | LABORATORY | [address] | | [...] | | systolic CHF (congestive heart failure) ([facility]) Transaminitis | | | The patient [...] | | | antibiotic" for pneumonia at [facility]. Was throwing up & could not [...] | Sonido Steele Results In - 05/29/2018 2:35 PM PDT [...] | + + + + + | [facility] | [address] | [place] [address] | | + + + + + Cholesterol, body fluid (05/29/2018 12:56 PM) + + + + + | Component | Value | Ref Range | Performed At | + + + + + | FLUID CHOLESTEROL | 56Comment: This is not a | mg/dL | [facility] | | | golf starter and ranger validated | | LABORATORY | | | sample type for this | | | | | method. No reference | | | | | ranges have been | | | | | established.Testing | | | | | performed at [facility], [address] | | | | | [facility], | | | | | [place] [address] | | | + + + + + + + | Specimen | + + | Body Fluid - | | Pleural, Right | + + + + + + + | Performing | Address | City/State/Zipcode | Phone Number | | Organization | | | | + + + + + | [facility] | [address] | [place] [address] | [phone] | | LABORATORY | [address] | | [...] | + + + + + | [facility] | [address] | [place] [address] | [phone] | | LABORATORY | [address]vd[address] | | | + + + + + Lactate dehydrogenase, body fluid (05/29/2018 12:56 PM) + + + + + | Component | Value | Ref Range | Performed At | + + + + + | FLUID LDH | 151Comment: This is not | U/L | [facility] | | | a golf starter and ranger validated | | LABORATORY | | | sample type for this | | | | | method. No reference | | | | | ranges have been | | | | | established.Testing | | | | | performed at [facility], [address] | | | | | [facility], | | | | | [place] [address] | | | + + + + + + + | Specimen | + + | Body Fluid - | | Pleural, Right | + + + + + + + | Performing | Address | City/State/Zipcode | Phone Number | | Organization | | | | + + + + + | [facility] | [address] | [place] [address] | [phone] | | LABORATORY | [address]vd. | | [...] | | space is punctured with an 8-Israeli thoracentesis catheter. Fluid is | | | [...] the pleural space is punctured with an 8-Israeli | | thoracentesis catheter. Fluid is aspirated [...] | + + + + + | [facility] | [address] | [place] [address] | | + + + + + APTT (05/29/2018 8:52 AM) + + + + + | Component | Value | Ref Range | Performed At | + + + + + | APTT | 29Comment: Testing | 23 - 32 seconds | [facility] | | | performed at [facility];[address];[place] | | | | | [address] | | | + + + + + + + | Specimen | + + | Blood | + + + + + + + | Performing | Address | City/State/Zipcode | Phone Number | | Organization | | | | + + + + + | [facility] | [address] | [place] [address] | | + + + + + Protime-INR (05/29/2018 8:52 AM) + + + + + | Component | Value | Ref Range | Performed At | + + + + + | INR | 1.5Comment: REFERENCE | | [facility] | | | RANGE:0.9 - [...] | | | | | performed at [facility];[address];[place] | | | | | [address] | | | + + + + + + + | Specimen | + + | Blood | + + + + + + + | Performing | Address | City/State/Zipcode | Phone Number | | Organization | | | | + + + + + | [facility] | [address] | [place] [address] | | + + + + + US archana alicea (05/28/2018 7:26 PM) + + + | [...] | + + + + + | [facility] | [address] | [place] [address] | | + + + + + Troponin I (05/28/2018 1:59 PM)Only the most recent of 2 results within the time period is included. + + + + + | Component | Value | Ref Range | Performed At | + + + + + | TROPONIN I | 0.037Comment: 0.04 | 0.00 - 0.04 ng/mL | [facility] | | | ng/mL or [...] performed at | | | | | [facility];[address] [facility] [address] [facility] | | | | | vd;[place] [address] | | | + + + + + + + | Specimen | + + | Blood | + + + + + + + | Performing | Address | City/State/Zipcode | Phone Number | | Organization | | | | + + + + + | [facility] | [address] | [place] [address] | | + + + + + [...] performed at | | | | | [facility], [address] | | | | | [place] | | | | | [address] | | | + + + + + + + | Specimen | + + | Blood | + + + + + + + | Performing | Address | City/State/Zipcode | Phone Number | | Organization | | | | + + + + + | [facility] | [address] | [place] [address] | [phone] | | LABORATORY | [address] | | [...] | | | | | performed at [facility], [address] | | | | | [facility], | | | | | [place] [address] | | | + + + + + + + | Specimen | + + | Blood | + + + + + + + | Performing | Address | City/State/Zipcode | Phone Number | | Organization | | | | + + + + + | [facility] | [address] | [place] [address] | [phone] | | LABORATORY | [address]vd[address] | | | + + + + + Renal function panel (05/28/2018 12:09 PM) + + + + + | Component | Value | Ref Range | Performed At | + + + + + | SODIUM | 141 | 135 - 145 mmol/L | [facility] | + + + + + | POTASSIUM | 4.3 | 3.5 - 4.9 mmol/L | [facility] | + + + + [...] (H) | 0.50 - 1.00 mg/dL | [facility] | + + + + + | CALCIUM | 9.1 | 8.5 - 10.5 mg/dL | [facility] | + + + + + | Albumin | 3.6 | 3.6 - 5.0 g/dL | [facility] | + + + + + | PHOSPHORUS | 6.3 (H) | 2.3 - 4.8 mg/dL | [facility] | + + + + + | EGFR | 6 (L)Comment: GFR <60: | >60 mL/min/1.73m2 | [facility] | | | CHRONIC KIDNEY [...] | | | | | performed at [facility];[address] | | | | [address];[place] | | | | | [address] | | | + + + + + + + | Specimen | + + | Blood - Blood | + + + + + + + | Performing | Address | City/State/Zipcode | Phone Number | | Organization | | | | + + + + + | [facility] | [address] | [place] [address] | | + + + + + [...] + + + + | Calculated P [place] | 24 | degrees | [facility] | + + + + + | Calculated R [place] | 24 | degrees | [facility] | + + + + + | Calculated T [place] | 103 | degrees | [facility] [...] | + + + + + | [facility] | [address] | [place] [address] | | + + + + + Sedimentation rate, automated (05/28/2018 9:23 AM) + + + + + | Component | Value | Ref Range | Performed At | + + + + + | ESR | 2Comment: Testing | 0 - 20 mm/Hr | [facility] | | | performed at [facility], [address] | | LABORATORY | | | [address], | | | | | [place] [address] | | | + + + + + + + | Specimen | + + | Blood | + + + + + + + | Performing | Address | City/State/Zipcode | Phone Number | | Organization | | | | + + + + + | [facility] | [address] | [place] [address] | [phone] | | LABORATORY | [address]vd[address] | | | + + + + + C-reactive protein (05/28/2018 9:23 AM) + + + + + | Component | Value | Ref Range | Performed At | + + + + + | CRP | 5.1 (H)Comment: Testing | <0.5 mg/dL | [facility] | | | performed at [facility], [address] | | LABORATORY | | | [facility] [address], | | | | | [place] [address] | | | + + + + + + + | Specimen | + + | Blood | + + + + + + + | Performing | Address | City/State/Zipcode | Phone Number | | Organization | | | | + + + + + | [facility] | [address] [place] [address] | [place] [address] | [phone] | | LABORATORY | [address] | | | + + + + + hCG, serum, qualitative (05/28/2018 9:23 AM) + + + + + | Component | Value | Ref Range | Performed At | + + + + + | TEST,SERUM | NEGATIVEComment: Testing | NEGATIVE | [facility] | | | performed at [facility], [address] | | LABORATORY | | | [address] [facility] [address], | | | | | [place] [address] | | | + + + + + + + | Specimen | + + | Blood | + + + + + + + | Performing | Address | City/State/Zipcode | Phone Number | | Organization | | | | + + + + + | [facility] | [address] | [place] [address] | [phone] | | LABORATORY | [address]vd[address] | | | + + + + + TSH (05/28/2018 9:23 AM) + + + + + | Component | Value | Ref Range | Performed At | + + + + + | TSH | 1.270Comment: Testing | 0.450 - 5.100 uIU/mL | [facility] | | | performed at [facility], [address] | | LABORATORY | | | [facility] [address], | | | | | [place] [address] | | | + + + + + + + | Specimen | + + | Blood | + + + + + + + | Performing | Address | City/State/Zipcode | Phone Number | | Organization | | | | + + + + + | [facility] | [address] | [place] [address] | [phone] | | LABORATORY | [address]vd[address] | | | + + + + + Pathology cytology - fluid (05/28/2018 8:00 AM) + + | Specimen | + + | Body Fluid | + + + + + | Narrative | Performed At | + + + | ORDERING PHYSICIAN: Maria Luisa ALMEIDA, Aneudy Briggs PATIENT NAME: | MOLLY | | DARA LOUISE GENDER: F : 1995 | PATHOLOGY | [...] PERFORMING LABORATORY: Technical preparation was performed by [facility] | | | [facility], [address] [address] [place] [address] | | | ([employer]: Matt Claudio D.O.; CLIA#: [id number]). | | | Professional interpretation was performed by [facility], | | | [facility], [address] [place] [id number] | | | ([employer]: Daniel Larson M.D.; CLIA#: [id number]).6 | | | Diagnostician: Marie BROOKS ([facility]) Bundler | | | Diagnostician: Anahy Da Silva MD Pathologist Electronically Signed | | | 05/30/2018 | | + + + + +---------+ + + | Performing | Address | City/State/[facility] | Phone Number | | Organization | | | | + +---------+ + + | [facility] | | | | [...] + + + | [facility] | [address] | [place] [address] | [phone] | | LABORATORY | [address] | | [...] performed at | | | | | [facility], [address] [place] [address] | | | | | [place], [place] | | | | | [address] | | | + + + + + + + + + + | Performing | Address | City/State/Zipcode | Phone Number | | Organization | | | | + + + + + | [facility] | [address] | [place] [address] | [phone] | | LABORATORY | [address]. | | | + + + + + Echo cardiac adult complete (05/27/2018 12:01 PM) + +---------+ + + | Component | Value | Ref Range | Performed At | + +---------+ + + | LV EF | 25 (LL) | 50 - 70 % | [facility] | | | | | RADIOLOGY | + +---------+ + + + + + | Impressions | Performed At | + + + | 1. Sinus rhythm. 2. A 2-dimensional transthoracic echocardiogram | [facility] | | with m-mode, spectral and color [...] valve is normal. 18. | | | Ngbs-tj-mhnejmya eccentric mitral regurgitation is present. 19. | [...] DARA LOUISE Date of : 1995 | [facility] | | Performing Physician: Robel [...] valve is normal. 18. | | | Uyfd-zs-sukmtuof eccentric mitral regurgitation is present. 19. | [...] is | | | normal. Mitral Valve: Chcy-qs-ipccvkyq eccentric mitral | | | regurgitation is [...] TR Vmax: 2.74 m/s | | | Pelletizer: MW Authenticated by: Robel Yusuf MD Report | | | Date/Time: 05-27-2018 13:59:57 | | + + + + + | Procedure Note | + + | Cedric, Rad Results In - 05/27/2018 2:00 PM PDT Patient Name: Anders LOUISE of | | : 1995Accession: [id number] Physician: Robel Yusuf | | MD INDICATIONS [...] aortic stenosis.17. The mitral valve is normal.18. Hmtw-tn-fwslfwhe | | eccentric mitral regurgitation is present.19. [...] | | arch are normal.26. No mass alqkpnqfjx69. No clot visualizedFINDINGS--------ECG rhythm: | | Sinus [...] The mitral valve is normal. Mitral Valve: Soai-qq-fgkmrsdk eccentric mitral | | regurgitation is present.Tricuspid [...] (A-L): 30.43 | | ml/m2LAAs A2C: 20.97 gj5LAGBA A-L A2C: 65.71 mlLALs A2C: 5.68 cmLAAs A4C: 19.94 | | fw9ERIQK A-L A4C: 60.20 mlLALs A4C: 5.60 cmTAPSE: 1.58 cmHR: 79.62 BPMAV maxPG: | | 6.06 mmHgAV meanP.71 mmHgAV Vmax: 1.23 m/Elizabeth Vmean: 0.92 m/Elizabeth VTI: 20.07 | | cmAVA Vmax: 1.74 cm2AVA (VTI): 1.93 lp2DAPR Vmax: 0.00 cm2/m2AVAI (VTI): 0.00 | | [...] The mitral valve is | | normal.18. Axyy-hp-joaaszzq eccentric mitral regurgitation is present.19. Severe | [...] and aortic arch are normal.26. No mass qajmfdfyln62. No clot visualized | |LVIDd: 4.99 cm [...] |TR Vmax: 2.74 m/s | | | |Pelletizer: MOO | |Authenticated by: Robel Yusuf MD [...] The mitral valve is normal. | |18. Qhis-jv-fhuogyqw eccentric mitral regurgitation is present. | |19. [...] | + + + + + | [facility] | [address] | [place] [address] | | + + + + + [...] | + + + + + | [facility] | [address] | [place] [address] | | + + + + + Phosphorus (05/27/2018 4:25 AM) + + + + + | Component | Value | Ref Range | Performed At | + + + + + | PHOSPHORUS | 8.0 (H)Comment: Testing | 2.3 - 4.8 mg/dL | [facility] | | | performed at [facility], [address] | | LABORATORY | | | [address], | | | | | [place] [address] | | | + + + + + + + | Specimen | + + | Blood | + + + + + + + | Performing | Address | City/State/Zipcode | Phone Number | | Organization | | | | + + + + + | [facility] | [address] | [place] [address] | [phone] | | LABORATORY | [address]vd[address] | | [...] (H)Comment: | 0 - 100 pg/mL | [facility] | | PEPTIDE | Testing performed at | | | | | [facility];[address] | | | | | [address];[place] [address] | | | + + + + + + + | Specimen | + + | Blood | + + + + + + + | Performing | Address | City/State/Zipcode | Phone Number | | Organization | | | | + + + + + | [facility] | [address] | [place] [address] | | + + + + + Magnesium (05/27/2018 4:25 AM) + + + + + | Component | Value | Ref Range | Performed At | + + + + + | MAGNESIUM | 2.7 (H)Comment: Testing | 1.7 - 2.4 mg/dL | [facility] | | | performed at [facility], [address] | | LABORATORY | | | [address], | | | | | [place] [address] | | | + + + + + + + | Specimen | + + | Blood | + + + + + + + | Performing | Address | City/State/Zipcode | Phone Number | | Organization | | | | + + + + + | [facility] | [address] | [place] [address] | [phone] | | LABORATORY | Blvd. | | [...] | | | | | performed at [facility], [address] | | | | | [address], | | | | | [place] [address] | | | + + + + + + + | Specimen | + + | Blood | + + + + + + + | Performing | Address | City/State/Zipcode | Phone Number | | Organization | | | | + + + + + | [facility] | [address] | [place] [address] | [phone] | | LABORATORY | Bl[address] | | [...] performed at | | | | | [facility], [address] | | | | | [place] | | | | | [address] | | | + + + + + + + | Specimen | + + | Nasopharynx/Orophary | | nx | + + + + + + + | Performing | Address | City/State/Zipcode | Phone Number | | Organization | | | | + + + + + | [facility] | [address] | [place] [address] | [phone] | | LABORATORY | [address]vd[address] | | | + + + + + MRSA by PCR (05/26/2018 6:06 PM) + + + + + | Component | Value | Ref Range | Performed At | + + + + + | SOURCE | [facility](NOSE) | | [facility] LABORATORY | + + + + + | MRSA PCR | NEGATIVEComment: Testing | NEGATIVE | [facility] | | | performed at [facility];[address] | | | | | [address];[place] | | | | | [address] | | | + + + + + + + | Specimen | + + | Nasopharyngeal - | | Nares(Nose) | + + + + + + + | Performing | Address | City/State/Zipcode | Phone Number | | Organization | | | | + + + + + | [facility] | [address] | [place] [address] | | + + + + + PROCALCITONIN (05/26/2018 5:27 PM)Only the most recent of 2 results within the time period is included. + + + + + | Component | Value | Ref Range | Performed At | + + + + + | PROCALCITONIN | 0.76 (H)Comment: | <0.5 ng/mL | [facility] | | | INTERPRETIVE | | [...] performed | | | | | at [facility];[address] [place] [address] | | | | | [facility];[place] [address] | | | + + + + + + + + + + | Performing | Address | City/State/Zipcode | Phone Number | | Organization | | | | + + + + + | [facility] | [address] | [place] [address] | | + + + + + [...] | + + + + + | [facility] | [address] | [place] [address] | | + + + + + [...] STAIN | STAIN PERFORMED ON | | [facility] | | | CYTOSPIN | | [...] | [facility] | [address] | [place] [address] | [phone] | | LABORATORY | [address]vd[address] | | | + + + + + | [facility] | [address] | [place] [address] | | + + + + + Pathologist consult (05/26/2018 2:12 PM) + + + + + | Component | Value | Ref Range | Performed At | + + + + + | Pathologist Consult | Comment: Review of | | [facility] | | | pleural fluid collected [...] performed | | | | | at [facility];[address] | | | | [address];[place] [address] | | | + + + + + + + + + + | Performing | Address | City/State/Zipcode | Phone Number | | Organization | | | | + + + + + | [facility] | [address] | [place] [address] | | + + + + + [...] + | APPEARANCE | CLOUDY | | [facility] | + + + + + | RBC'S | 3,000Comment: CORRECTED | /mm3 | [facility] | | | RESULTS CALLED TO | | | | | MARIA LUISA IN ED AT 1705 | | | | | BY LGJCORRECTED ON 05/26 | | | | | AT 1702: PREVIOUSLY | | | | | REPORTED <[id number] | | | + + + + + | TOTAL NUCLEATED | 253Comment: CORRECTED | /mm3 | [facility] | | CELLS | RESULTS CALLED [...] CELLS COUNTED | 100Comment: Testing | | [facility] | | | performed at [facility];[address] | | | | | [address];[place] | | | | | [address] | | | + + + + + + + | Specimen | + + | Body Fluid - Lung, | | Right Lower Lobe | + + + + + + + | Performing | Address | City/State/Zipcode | Phone Number | | Organization | | | | + + + + + | [facility] | [address] | [place] [address] | | + + + + + Total Protein, Body Fluid (05/26/2018 2:12 PM) + + + + + | Component | Value | Ref Range | Performed At | + + + + + | FLUID TOTAL PROTEIN | 4.2Comment: This is not | g/dL | [facility] | | | a golf starter and ranger validated | | LABORATORY | | | sample type for this | | | | | method. No reference | | | | | ranges have been | | | | | established.Testing | | | | | performed at [facility], [address] | | | | | [facility] [employer], | | | | | [place] [address] | | | + + + + + | FLUID TP SOURCE | PLEURAL FLUIDComment: | | [facility] | | | Testing performed at | | | | | [facility];[address];[place] [address] | | | + + + + + + + | Specimen | + + | Body Fluid - Lung, | | Right Lower Lobe | + + + + + + + | Performing | Address | City/State/Zipcode | Phone Number | | Organization | | | | + + + + + | [facility] | [address] | [place] [address] | | + + + + + | [facility] | [address] | [place] [address] | [phone] | | LABORATORY | [address] | | | + + + + + Albumin, Body Fluid (05/26/2018 2:12 PM) + + + + + | Component | Value | Ref Range | Performed At | + + + + + | FLUID ALBUMIN | 2.3Comment: This is not | g/dL | [facility] | | | a golf starter and ranger validated | | LABORATORY | | | sample type for this | | | | | method. No reference | | | | | ranges have been | | | | | established.Testing | | | | | performed at [facility], [address] | | | | | [facility], | | | | | [place] [address] | | | + + + + + + + | Specimen | + + | Body Fluid - Lung, | | Right Lower Lobe | + + + + + + + | Performing | Address | City/State/Zipcode | Phone Number | | Organization | | | | + + + + + | [facility] | [address] | [place] [address] | [phone] | | LABORATORY | [address] | | | + + + + + pH, Body Fluid (05/26/2018 2:12 PM) + + + + + | Component | Value | Ref Range | Performed At | + + + + + | FLUID PH | 7.45Comment: Testing | | [facility] | | | performed at [facility];[address] | | | | | [address];[place] | | | | | [address] | | | + + + + + + + | Specimen | + + | Body Fluid - Lung, | | Right Lower Lobe | + + + + + + + | Performing | Address | City/State/Zipcode | Phone Number | | Organization | | | | + + + + + | [facility] | [address] | [place] [address] | | + + + + + [...] 12.1 | 11.3 - 15.5 g/dL | [facility] | + + + + [...] 151 | 150 - 400 K/uL | [facility] | + + + + + | MPV | 10.1 | fl | [facility] | + [...] 99 | 99 - 109 mmol/L | [facility] | + + + + + | CO2 | 27 | 23 - 32 mmol/L | [facility] | + + + + + | ANION GAP AGAP | 19 | 5 - 20 mmol/L | [facility] | + + + + + | GLUCOSE | 85 | 65 - 99 mg/dL | [facility] | + + + + [...] 2.9 | 1.3 - 4.9 g/dL | [facility] | + + + + + | A/G | 1.5 | 1.0 - 2.4 | [facility] | + + + + + | TBIL | 1.1 | 0.1 - 1.5 mg/dL | [facility] | + + + + + | ALK PHOS | 120 (H) | 35 - 115 U/L | [facility] | + + + + + | AST | 82 (H) | 10 - 45 U/L | [facility] | + + + + + | ALT | 64 | 10 - 65 U/L | [facility] | + + + + + | EGFR | 6 (L)Comment: GFR <60: | >60 mL/min/1.73m2 | [facility] | | | CHRONIC KIDNEY [...] (H) | 30 - 240 U/L | [facility] | + + + + + | INR | 1.6Comment: REFERENCE | | [facility] | | | RANGE:0.9 - [...] 29 | 23 - 32 seconds | [facility] | + + + + + | MMB | 7.8 (H) | 0.5 - 3.6 ng/mL | [facility] | + + + + + | CK-MB Index | 2.7Comment: CK INDEX | | [facility] | | | INTERPRETATION: | | [...] | | | | | performed at [facility] | | | | | [address];[place], [place] | | | | | [address] | | | + + + + + + + + + + | Performing | Address | City/State/Zipcode | Phone Number | | Organization | | | | + + + + + | [facility] | [address] | [place] [address] | | + + + + + [...] space: 4th Puncture | | | method: Hrlq-[id number] catheter Ultrasound guidance: yes | | | [...] perforation, infection and | | | pain Roebuck protocol: Imaging studies available: yes | | [...] Performed At | + + + | [id number] [id number] Criteria Met 2 in 2 | ED [...] Count (12 mo.) Facility Visits Low Acuity [facility] | | | [facility] 1 0 [facility] 5 0 Total 6 0 | | | Note: Visits indicate total known visits. Medicaid Low Acuity Dx | | | are the number of primary diagnoses on the Medicaid's Low Acuity dx | | | list. Recent Emergency Department Visit Summary Date Facility | | | City State Type Diagnoses or Chief Complaint May 26, 2018 [facility] | | | [facility] [place] Emergency Chest pain, unspecified | | | May 26, [address] [facility] [address] [place] Emergency Chief | | | Complaint: FLU SYMPTOMS May 25, 2018 [facility] [place] | | | Emergency Chief Complaint: SOB/COUGH May 10, [address] [facility] [address] | | | [place]. [...] | | disease Feb 14, 2018 [facility] 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 Emergency Chronic kidney disease, | | | unspecified Dependence on renal dialysis Pain, | | | unspecified Allergy status to narcotic agent status | | | Nicotine dependence, unspecified, uncomplicated Other pantry steward/stewardess | | | (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 Elevated [...] Portal This patient has registered at the [facility] | | | [facility] Emergency Department For more information visit: | | | [email or web address] | | | [email or web address] andnbsp PLEASE NOTE: [...] | | completeness of information provided. 2019 Rule. | | | [employer]. - www.[employer] | | + + + + + | Procedure Note | + + | Interface, Lab - 05/26/2018 12:00 PM PDT Formatting of this note may be different | | from the original.[id number] [id number] Met 2 in 2Security and | | SafetyNo recent Security Events currently on fileED Care GuidelinesThere are currently | | no ED Care Guidelines for this patient. Please check your facility's medical records | | system.Prescription Drug Report (12 Mo.)PDMP query found no report.E.D. Visit Count (12 | | mo.)Facility Visits Low Acuity [facility] 1 0 [facility] | | Hospital 5 0 Total 6 0 Note: Visits indicate total known visits. Medicaid Low Acuity Dx | | are the number of primary diagnoses on the Medicaid's Low Acuity dx list. Recent | | Emergency Department Visit SummaryDate Facility [facility] State Type Diagnoses or Chief | | [facility] Chest pain, | | unspecified May 26, 2018 [facility] [place] Emergency Chief Complaint: FLU | | SYMPTOMS May 25, 2018 [facility] [place] Emergency Chief Complaint: | | SOB/COUGH May 10, 2018 [facility] [place] Emergency Epistaxis Other long | | [...] stage renal disease Feb 14, 2018 [facility] [place] | | 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 Emergency Chronic kidney disease, unspecified | | Dependence on renal dialysis Pain, unspecified Allergy status to narcotic agent | | status Nicotine dependence, unspecified, uncomplicated Other fdc (current) | | 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 Elevated blood-pressure [...] | LalaThis patient has registered at the [facility] Emergency | | Department For more information visit: | | [email or web address] andnbsp | | PLEASE NOTE: 1. Any [...] or completeness of information | | provided.2019 eMar. 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 Emergency | | Functional dyspepsia | | Other ascites | | Epigastric pain | | Allergy status to narcotic agent status | | Radiographic dye allergy status | | Nicotine dependence, unspecified, uncomplicated | | Other fdc (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 | | | |Sep 16, 2017 [facility] [place] 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 | |Wire Portal | |This patient has registered at the [facility] Emergency Department | |For more information visit: [email or web address] | |andnbsp PLEASE NOTE: | | 1. [...] of information provided. | | | |2019 eMar. - www.[employer] | + + + +---------+ + + [...] +------+-------+ + | MEDICARE | MEDICA | [id number] | | | [address] | | | RE | | | | [place] [address] | | | IP-OP | | | | | + +--------+ +------+-------+ + | MEDICAID | [place]ASTER | [id number] | | | [address] | | | [place] | | | | [place] | | | [place] | | | | [address] | | | [employer] CLE[employer]ER | | | | | + +--------+ [...] | Self [birth year] Home: | [facility] [address] | | | tray/Kvng | | [phone] | [phone] | [place] | | | [place] | | | [phone] | + +--------+ +--------+ + +
--- OUTSIDE RECORDS SUMMARY | ~2018-06-19 | XMS | Encounter Summary ---
Demographics + + + | Address | [address] | | | [place] [address] | + + + | Home Phone [...] [facility] | | | and [place] | + + + | Organization | [facility] [...] Providers + +------+ + | Care Foreign Exchange Clerk Name | Role | Phone | [...] | | stage renal | [address] | [address] [place] [address] | | | | | disease) | Shun Griffin | [place] | | | | | (HCC) | [address] | [address] | | | | | Anemia in | [place], [place] | [place], [place] | | | | | ESRD | [address] | [address] Phone: | | | | | (end-stage | Phone: | [phone] | | | | | renal | [phone] | Fax: | | | | | disease) | Fax: | [phone] | | | | | ([facility]) | [phone] | | | | | | Procedures | | | | | | | [place] ESRD | | | | | | [...] | M, DO [address] | renal disease) ([facility]) | | | | [address] | [place], [place] [address] | (Primary Dx) | | | | [place] | [place] | | | | | [address] | [address] | | | | | [phone] | | | +--------+ + + + [...] Will recheck her in 2 weeks. : Waverly Fina Alonso MD, PhD documented in this e ncounter Plan of Treatment Not on filedocumented as of this encounter Visit Diagnoses + + | Diagnosis | + + | ESRD (end stage renal disease) (HCC) - Primary End stage renal disease | + + documented in this encounter"
--- OUTSIDE RECORDS SUMMARY | ~2018-06-19 | XMS | Encounter Summary ---
Demographics + + + | Address | [address] | | | [place] [address] | + + + | Home Phone [...] + + + | Author | [employer] | + + + | Organization | [facility] | + + + | Address | Unknown | + + + | Phone | Unavailable | + + + Support + + +---------+ + | Name | Relationship | Address | Phone | + + +---------+ + | Cory Louise | ECON | Unknown | | + + +---------+ + | hTania Mallory | ECON | Unknown | | + + +---------+ + | Saundra Mallory | ECON | Unknown | | + + +---------+ + | Wilson De Guzman | ECON | Unknown | | + + +---------+ + Care Team Providers + +------+ + | Care Rn Unit Manager Name | Role | Phone | + +------+ + | Tien Nicholson MD | PCP | | + +------+ + Reason for Visit + + + | Reason | Comments | + + + | Shortness of Breath | | + + + | Referral | Transfer from [facility] | + + + Auth/Cert +--------+--------+ + + + + | Status | Reason | Specialty | Diagnoses / | Referred By | Referred To | | | | | Procedures | Contact | Contact | +--------+--------+ + + + + | | | Internal | Diagnoses | | [facility] 4[facility] | | | | Medicine | Acute | | [address] [place] | | | | | respiratory | | [address] | | | | | distress | | [address] | | | | | Other | | [place], [place] | | | | | ascites | | [address] Phone: | | | | | Pleural | | [phone] | | | | | effusion on | | Fax: | | | | | right Chest | | [phone] | | | | | pain, | | | | | | | unspecified | | | | | | | type | | | +--------+--------+ + + + + Encounter Details +--------+ + + + + | Date | Type | Department | Care Team | Description | +--------+ + + + + | 05/26/ | Hospital | [facility] | Aneudy Hunter, | Pleural effusion on | | 2019 - | Encounter | [address] | MD [address] | right (Primary Dx); | | | | [facility] | [place] [address] | Chest pain, | | 06/01/ | | [address] | [phone] [place], | unspecified type; | | 2019 | | [place] [address] | MD [place] [address] | Other ascites; Acute | | | | [phone] | [address] | respiratory | | | | | [place] [address] | distress; End-stage | | | | | [phone] | renal disease on | | | | | | hemodialysis (HCC); | | | | | Anthony Belcher MD | Hyperkalemia; | | | | | [address] | Hyperphosphatemia; | | | | | [place] [address] | At high risk for | | | | | [phone] | electrolyte | | | | | | imbalance; Acute | | | | | Darell Kowalski MD | systolic CHF | | | | | [address] | (congestive heart | | | | | [place] [address] | failure) ([facility]); | | | | | [phone] | Hypoalbuminemia; | | | | | | Anemia in ESRD | | | | | | (end-stage renal | | | | | | disease) ([facility]); ESRD | | | | | | [...] note may be different from pierre coleman. [facility] Service: Hospitalist Physician Discharge Summary [...] 17. The mitral valve is normal. 18. Zbyy-kr-wgrth ate eccentric mitral regurgitation is present. 19. [...] anemia of chronic disease who went to [facility] with increasing shortness of breath found to have right pleural effusion who was transfer red to [facility] underwent right-sided diagnostic and therapeutic thoracocentesis with [...] hyperkalemia with that. I discussed with the barrel polisher as well regarding not being on [place]/ARB. [...] Component Value Units Date/Time Culture, Body Fluid [[id number]] Collected: 05/26/18 1412 Specimen: Body Fluid from Pleural Fluid Updated: 05/30/18 0733 Specimen Description PLEURAL FLUID GRAM STAIN WBC'S SEEN GRAM STAIN NO ORGANISMS SEEN GRAM STAIN STAIN PERFORMED ON CYTOSPIN CULTURE NO GROWTH 4 DAYS Culture, Body Fluid [[id number]] Collected: 05/26/18 1513 Specimen: Other from Ascites Fluid Updated: 05/30/18 0732 Specimen Description ASCITES FLUID GRAM STAIN STAIN PERFORMED ON CYTOSPIN GRAM STAIN WBC'S SEEN GRAM STAIN NO EPITHELIAL CELLS SEEN GRAM STAIN NO ORGANISMS SEEN CULTURE NO GROWTH 4 DAYS Gram stain [[id number]] Collected: 05/29/18 1256 Specimen: Sputum from Thoracic Fluid Updated: 05/29/18 1578 Specimen Description THORACIC FLUID CULTURE 1+ WBC'S SEEN NO ORGANISMS SEEN Lactate dehydrogenase, body fluid [[id number]] Collected: 05/29/18 1256 Specimen: Body Fluid from Pleural, Right Updated: 05/29/18 1619 FLUID LDH 151 U/L Cholesterol, body fluid [[id number]] Collected: 05/29/18 1256 Specimen: Body Fluid from [...] if needed. Follow-Up: Tien Nicholson MD [address], [address] [place] [address] In 1 week Carolina Mahmood, DO [address] [place] [id number] In 1 week Daniela Ibarra MD [address] [facility] [id number] In 1 week Discharge took more than 35 minutes, to include final examination, discussion of admission, and preparation of prescriptions, instructions for ongoing care, follow up and dictation of summary. Signed: DARELL KOWALSKI MD 06/01/2018 9:59 AM Dictation software, 8digits, used which may contain error for similar [...] of this encounter Progress Notes Tino Paiz, JEANNINE - 06/01/2018 3:06 PM PDTFormatting of this note may be different fro m the original. [facility] Department of Respiratory Retirement Oxygen Evaluation (Evaluation is valid for 48 [...] original. [facility] Service: NEPHROLOGY Dialysis/ Progress Note Dara Louise 23 y.o. [id number] female [facility] Day: LOS: 6 days Patient with [...] FISTULA; Surgeon: Rik Simon MD; Location: [facility] MAIN OR; Service: Vascula r; Laterality: Left; cephalic AV FISTULA REPAIR Left 03/07/2014 Procedure: AV FISTULA - GRAFT REPAIR/REVISION; Surgeon: Rik Simon MD; Location: [facility] IN OR; Service: Vascular; Laterality: Left; DECLOT GRAFT Left 03/07/2014 Procedure: GRAFT - DECLOT; Surgeon: Rik Simon MD; Location: [facility] MAIN OR; Service: Vas cular; Laterality: Left; DIALYSIS FISTULA CREATION N/A 04/08/2014 Procedure: DIALYSIS CATHETER - INSERTION; Surgeon: Rik Simon MD; Location: [facility] OR ; Service: Vascular; Laterality: N/A; tunneled catheter LAPAROSCOPIC PERITONEAL DIALYSIS CATHETER INSERTION x2 LAPAROSCOPIC PERITONEAL DIALYSIS CATHETER INSERTION Right 07/2013 current dialysis access MWF dialysis RENAL BIOPSY SUPERFICIALIZATION OF AV FISTULA Left 06/24/2014 Procedure: AV FISTULA - SUPERFICIALIZATION; Surgeon: Rik Simon MD; Location: [facility] OR; Service: Vascular; Laterality: Left; History reviewed. [...] up pneumonia . COMPARISON: CT CHEST WO BIRDIEAS T (05/26/2018); XR CHEST 2 VIEW FRONTAL [...] radiologist report and is used for image PDC [employer]ote[employer] ge only Us Abdomen Limited Result Date: [...] 17. The mitral valve is normal. 18. Qjpj-jp-gfuwrrkg eccentric mitral regurgitation i s present. 19. [...] mitral valve is normal. Mitral Kait ve: Ltvk-vj-jkmknkik eccentric mitral regurgitation is present. Tricuspid Valve: [...] maxP.08 mmHg TR Vmax: 2.7 4 m/s Vehicle Glass Technician: MOO Authenticated by: Robel Yusuf MD Report [...] 17. The mitral valve is normal. 18. Gfxi-np-khgcn ate eccentric mitral regurgitation is present. 19. [...] pleural spac e is punctured with an 8-Congolese thoracentesis catheter. Fluid is aspirated without complicat [...] earlier and charting completed later Dictation software, 8digits, used which may contain error for similar [...] put on "an antibiotic" for pneumonia at [facility] ED. Was throwing up & could not [...] the prelim submitted orders, MWF No acute SPECIAL POPULATION PARAPROFESSIONAL indication ESTEFANY as indicated with HD Protein [...] note may be different from pierre coleman. [facility] Service: Hospitalist Progress Note Pt: Dara Louise AGE/SEX: 23 y.o. female ROOM: 4441/4441-1 : 1995 PCP: TIEN NICHOLSON ADMIT DATE: 05/26/2018 TODAY'S DATE: 05/31/2018 Hospital Day/Hospital Course: LOS: [address] Belcher 23-year-old female with past medical history of end-stage renal disease on hemodialysis Mon day Monday, hypertension, anemia of chronic disease who went to [facility] with increasing shortness of breath found to have right pleural effusion who was transfer red to [facility] underwent right-sided diagnostic and therapeutic thoracocentesis with [...] Component Value Units Date/Time Culture, Body Fluid [[id number]] Collected: 05/26/18 1412 Specimen: Body Fluid from Pleural Fluid Updated: 05/30/18 0733 Specimen Description PLEURAL FLUID GRAM STAIN WBC'S SEEN GRAM STAIN NO ORGANISMS SEEN GRAM STAIN STAIN PERFORMED ON CYTOSPIN CULTURE NO GROWTH 4 DAYS Culture, Body Fluid [[id number]] Collected: 05/26/18 1513 Specimen: Other from Ascites Fluid Updated: 05/30/18 0732 Specimen Description ASCITES FLUID GRAM STAIN STAIN PERFORMED ON CYTOSPIN GRAM STAIN WBC'S SEEN GRAM STAIN NO EPITHELIAL CELLS SEEN GRAM STAIN NO ORGANISMS SEEN CULTURE NO GROWTH 4 DAYS Gram stain [[id number]] Collected: 05/29/18 1256 Specimen: Sputum from Thoracic Fluid Updated: 05/29/18 2339 Specimen Description THORACIC FLUID CULTURE 1+ WBC'S SEEN NO ORGANISMS SEEN Lactate dehydrogenase, body fluid [[id number]] Collected: 05/29/18 1256 Specimen: Body Fluid from Pleural, Right Updated: 05/29/18 1619 FLUID LDH 151 U/L Cholesterol, body fluid [[id number]] Collected: 05/29/18 1256 Specimen: Body Fluid from Pleural, Right Updated: 05/29/18 1619 FLUID CHOLESTEROL 56 mg/dL Sputum culture [[id number]] Collected: 05/27/182014 Specimen: Sputum from Sputum Updated: [...] 17. The mitral valve is normal. 18. Norw-bo-kqzvl ate eccentric mitral regurgitation is present. 19. [...] cc clear straw-colored fluid. Signed b y: Giovanni Bustoswn Sign Date/Time: 05/29/2018 3:39 PM PROBLEM LIST [...] anemia of chronic disease who went to [facility] with increasing shortness of breath due to acute congestive heart failure Acute systolic congestive heart failure with Pleural Effusion: Admitted with acute systolic congestive heart failure with bilateral pleural effusion stat us post thoracentesis 2. Her breathing has improved. She is talking to me appropriately. N ot in any kind of distress. coordinator of library services to initiate the discharge plan. Possible [...] agree with the following nutritional recommendations: DARELL KOWASLKI MD, FACP 05/31/2018 9:42 AM Dictation software, 8digits, used which may contain error for similar sounding words even af ter review. Personal communication requested for any clarification. Portions of this chart may have been copied from previous notes for continuity of care purp Darell Segundo MD - 05/30/2018 9:09 AM PDTFormatting of this note may be different from pierre coleman. [facility] Service: Hospitalist Progress Note Pt: Dara Louise AGE/SEX: 23 y.o. female ROOM: [address] [place] [address] : 1995 PCP: TIEN NICHOLSON ADMIT DATE: 05/26/2018 TODAY'S DATE: 05/30/2018 Hospital Day/Hospital Course: LOS: [address] Belcher 23-year-old female with past medical history of end-stage renal disease on hemodialysis Mon day Monday, hypertension, anemia of chronic disease who went to [facility] with increasing shortness of breath found to have right pleural effusion who was transfer red to [facility] underwent right-sided diagnostic and therapeutic thoracocentesis with [...] Not suicida l LABS: Recent Labs Lab 05/30/188 05/29/18 0457 05/28/18 0923 WBC 4.80 5.44 [...] Component Value Units Date/Time Culture, Body Fluid [[id number]] Collected: 05/26/18 1412 Specimen: Body Fluid from Pleural Fluid Updated: 05/30/18 0733 Specimen Description PLEURAL FLUID GRAM STAIN WBC'S SEEN GRAM STAIN NO ORGANISMS SEEN GRAM STAIN STAIN PERFORMED ON CYTOSPIN CULTURE NO GROWTH 4 DAYS Culture, Body Fluid [[id number]] Collected: 05/26/18 1513 Specimen: Other from Ascites Fluid Updated: 05/30/18 0732 Specimen Description ASCITES FLUID GRAM STAIN STAIN PERFORMED ON CYTOSPIN GRAM STAIN WBC'S SEEN GRAM STAIN NO EPITHELIAL CELLS SEEN GRAM STAIN NO ORGANISMS SEEN CULTURE NO GROWTH 4 DAYS Gram stain [[id number]] Collected: 05/29/18 1256 Specimen: Sputum from Thoracic Fluid Updated: 05/29/18 2339 Specimen Description THORACIC FLUID CULTURE 1+ WBC'S SEEN NO ORGANISMS SEEN Lactate dehydrogenase, body fluid [[id number]] Collected: 05/29/18 1256 Specimen: Body Fluid from Pleural, Right Updated: 05/29/18 1619 FLUID LDH 151 U/L Cholesterol, body fluid [[id number]] Collected: 05/29/18 1256 Specimen: Body Fluid from Pleural, Right Updated: 05/29/18 1619 FLUID CHOLESTEROL 56 mg/dL Sputum culture [[id number]] Collected: 05/27/182014 Specimen: Sputum from Sputum Updated: [...] 17. The mitral valve is normal. 18. Eorw-ur-hyain ate eccentric mitral regurgitation is present. 19. [...] anemia of chronic disease who went to [facility] with increasing shortness of breath due [...] MD, FACP 05/30/2018 9:10 AM Dictation software, 8digits, used which may contain error for similar sounding words even af ter review. Personal communication requested for any clarification. Portions of this chart may have been copied from previous notes for continuity of care purp Carolina Camarillo, DO - 05/29/2018 7:56 PM PDTFormatting of this note may be different from th e original. [facility] Service: Cardiology Progress Note Hospital [...] Hospitalist Progress Note Dara Louise 23 y.o. [id number] 4441/[id number] female [facility] Day: LOS: 3 days Patient Summary: 23-year-old female with past medical history of end-stage renal dis ease on hemodialysis Monday, hypertension, anemia of chronic disease who we nt to [facility] with increasing shortness of breath found to have right pleural e ffusion who was transferred to [facility] underwent right-sided diagnostic and therapeu tic thoracocentesis [...] Value Units Date/Time Lactate dehydrogenase, body fluid [[id number]] Collected: 05/29/18 1256 Specimen: Body Fluid from Pleural, Right Updated: 05/29/18 1315 Cholesterol, body fluid [[id number]] Collected: 05/29/18 1256 Specimen: Body Fluid from Pleural, Right Updated: 05/29/18 1315 Gram stain [[id number]] Collected: 05/29/18 1256 Specimen: Sputum from OTHR-w source desc (F6) Updated: 05/29/18 1309 Sputum culture [[id number]] Collected: 05/27/182014 Specimen: Sputum from Sputum Updated: 05/29/18 0947 Specimen Description SPUTUM GRAM STAIN LESS THAN 10 WBCS/LPF GRAM STAIN LESS THAN 10 SEC/LPF GRAM STAIN NO ORGANISMS SEEN CULTURE 1+ NORMAL UPPER RESPIRATORY ALESSANDRO HIV 1/2 Ab reflex [[id number]] Collected: 05/28/18 1236 Specimen: Blood Updated: 05/29/18 0942 HIV1/HIV2 NON REACTIVE Protime-INR [[id number]] Collected: 05/29/18 0852 Specimen: Blood Updated: 05/29/1840 INR 1.5 APTT [[id number]] Collected: 05/29/18 0852 Specimen: Blood Updated: 05/29/1840 APTT 29 seconds Culture, Body Fluid [[id number]] Collected: 05/26/18 1513 Specimen: Other from Ascites Fluid Updated: 05/29/18919 Specimen Description ASCITES FLUID GRAM STAIN STAIN PERFORMED ON CYTOSPIN GRAM STAIN WBC'S SEEN GRAM STAIN NO EPITHELIAL CELLS SEEN GRAM STAIN NO ORGANISMS SEEN CULTURE NO GROWTH 3 DAYS Culture, Body Fluid [[id number]] Collected: 05/26/18 1412 Specimen: Body Fluid from Pleural Fluid Updated: 05/29/18917 Specimen Description PLEURAL FLUID CULTURE NO GROWTH 3 DAYS Comprehensive metabolic panel [[id number]] (Abnormal) Collected: 05/29/18456 Specimen: Blood Updated: 05/29/18615 [...] mL/min/1.73m2 CBC W/Auto Diff (Reflex to Manual) [[id number]] (Abnormal) Collected: 05/29/18456 Specimen: Blood Updated: 05/29/18612 [...] 0.05 K/uL MORPHOLOGY 2+ hCG, serum, qualitative [[id number]] Collected: 05/28/18922 Specimen: Blood Updated: 05/28/18 1950 TEST,SERUM NEGATIVE C-reactive protein [[id number]] (Abnormal) Collected: 05/28/18922 Specimen: Blood Updated: 05/28/18 1941 CRP 5.1 (H) mg/dL Sedimentation rate, automated [[id number]] Collected: 05/28/18922 Specimen: Blood Updated: 05/28/18 1734 ESR 2 mm/Hr Hepatitis panel,acute [[id number]] Collected: 05/28/18 1236 Specimen: Blood Updated: 05/28/18 1650 HAV AB,IGM NON REACTIVE HEP B SURFACE AG NON REACTIVE ANTI HEP B CORE,IGM NON REACTIVE HEPATITIS C NON REACTIVE HEPATITIS INTERP No serologic evidence of HAV, HBV, or HCV infection. Troponin I [[id number]] Collected: 05/28/18922 Specimen: Blood Updated: 05/28/18 1437 TROPONIN I 0.034 ng/mL Troponin I [[id number]] Collected: 05/28/18 1359 Specimen: Blood Updated: 05/28/18 1437 TROPONIN I 0.037 ng/mL Renal function panel [[id number]] (Abnormal) Collected: 05/28/18 1209 Specimen: Blood from Blood Updated: 05/28/18 1302 SODIUM 141 mmol/L POTASSIUM 4.3 mmol/L CHLORIDE 101 mmol/L CO2 29 mmol/L ANION GAP AGAP 15 mmol/L GLUCOSE 78 mg/dL BUN 43 (H) mg/dL CREATININE 7.97 (H) mg/dL CALCIUM 9.1 mg/dL Albumin 3.6 g/dL PHOSPHORUS 6.3 (H) mg/dL EGFR 6 (L) mL/min/1.73m2 CBC W/Auto Diff (Reflex to Manual) [[id number]] (Abnormal) Collected: 05/28/18922 Specimen: Blood Updated: 05/28/18 [...] 0.05 K/uL MORPHOLOGY 1+ Comprehensive metabolic panel [[id number]] (Abnormal) Collected: 05/28/18922 Specimen: Blood Updated: 05/28/18 [...] (H) U/L EGFR 6 (L) mL/min/1.73m2 TSH [[id number]] Collected: 05/28/18922 Specimen: Blood Updated: 05/28/18 1210 TSH 1.270 uIU/mL Pathologist consult [[id number]] Collected: 05/26/18 1412 Updated: 05/28/18 1113 Pathologist Consult -- Hepatitis panel, chronic [[id number]] (Abnormal) Collected: 05/27/18 1758 Updated: 05/27/18 2031 Hep A Total Ab REACTIVE (A) HEP B SURFACE AG NON REACTIVE HEP B CORE AB,TOTAL NON REACTIVE HEP B SURFACE ANTIBODY 3.27 (H) IV HEPATITIS C NON REACTIVE HEPATITIS INTERP Current or past HAV infection. Past HBV infection or vaccination. No ser ologic evidence of HCV infection. CBC w/auto diff (reflex to manual) [[id number]] (Abnormal) Collected: 05/27/18 0425 Specimen: Blood Updated: [...] K/uL MORPHOLOGY 2+ Platelet Estimate DECREASED Phosphorus [[id number]] (Abnormal) Collected: 05/27/18424 Specimen: Blood Updated: 05/27/18628 PHOSPHORUS 8.0 (H) mg/dL Basic Metabolic Panel [[id number]] (Abnormal) Collected: 05/27/18424 Specimen: Blood Updated: 05/27/18628 SODIUM 135 mmol/L POTASSIUM 5.9 (H) mmol/L CHLORIDE 96 (L) mmol/L CO2 25 mmol/L ANION GAP AGAP 20 mmol/L GLUCOSE 74 mg/dL BUN 51 (H) mg/dL CREATININE 9.2 (H) mg/dL BUN/CREAT 6 CALCIUM 9.4 mg/dL EGFR 5 (L) mL/min/1.73m2 Magnesium [[id number]] (Abnormal) Collected: 05/27/18424 Specimen: Blood Updated: 05/27/1829 MAGNESIUM 2.7 (H) mg/dL Brain natriuretic peptide [[id number]] (Abnormal) Collected: 05/27/18424 Specimen: Blood Updated: 05/27/18 0546 BRAIN NATRIURETIC PEPTIDE 1,153.92 (H) pg/mL Respiratory Filmarray [[id number]] (Abnormal) Collected: 05/26/181805 Specimen: Nasopharynx/Oropharynx Updated: 05/26/182141 [...] performed by Molecular Methodology MRSA by PCR [[id number]] Collected: 05/26/18 180 Specimen: Nasopharyngeal from Nares(Nose) Updated: 05/26/182025 SOURCE NARES(NOSE) MRSA PCR NEGATIVE Procalcitonin [[id number]] (Abnormal) Collected: 05/26/18 1727 Updated: 05/26/18 1839 PROCALCITONIN 0.76 (H) ng/mL Albumin, Body Fluid [[id number]] Collected: 05/26/181411 Specimen: Body Fluid from Lung, Right Lower Lobe Updated: 05/26/181728 FLUID ALBUMIN 2.3 g/dL Total Protein, Body Fluid [[id number]] Collected: 05/26/181411 Specimen: Body Fluid from Lung, Right Lower Lobe Updated: 05/26/181728 FLUID TOTAL PROTEIN 4.2 g/dL FLUID TP SOURCE PLEURAL FLUID Cell count, Body Fluid [[id number]] Collected: 05/26/181411 Specimen: Body Fluid from Lung, Right Lower Lobe Updated: 05/26/18 170 FLUID TYPE PLEURAL FLUID COLOR SAMMIE APPEARANCE CLOUDY RBC'S 3,000 /mm3 TOTAL NUCLEATED CELLS 253 /mm3 NEUTROPHILS 22 % LYMPHOCYTES 8 % MONOCYTES/MACROPHAGES 65 % Mesothelial Cells 5 % CELLS COUNTED 100 pH, Body Fluid [[id number]] Collected: 05/26/181411 Specimen: Body Fluid from Lung, [...] 17. The mitral valve is normal. 18. Jvcg-ng-jcyphmkt eccentric mitral regurgitation i s present. 19. [...] mitral valve is normal. Mitral Kait ve: Vzjp-by-mllepwie eccentric mitral regurgitation is present. Tricuspid Valve: [...] maxP.08 mmHg TR Vmax: 2.7 4 m/s Vehicle Glass Technician: MOO Authenticated by: Robel Yusuf MD Report [...] 17. The mitral valve is normal. 18. Tbem-cs-tstyc ate eccentric mitral regurgitation is present. 19. [...] put on "an antibiotic" for pneumonia at [facility] ED. Was throwing up & could not [...] the prelim submitted orders, MWF No acute SPECIAL POPULATION PARAPROFESSIONAL indication ESTEFANY as indicated with HD Protein [...] Hospitalist Progress Note Dara Louise 23 y.o. [id number] female [facility] Day: LOS: 2 days Patient Summary: 23-year-old female with past medical history of end-stage renal dis ease on hemodialysis Monday, hypertension, anemia of chronic disease who we nt to [facility] with increasing shortness of breath found to have right pleural e ffusion who was transferred to [facility] underwent right-sided diagnostic and therapeu tic thoracocentesis [...] C) (05/28 0345) BP: (110-131)/(50-91) 116/71 (05/28 0745) Heart Rate: [69-87] 70 (05/28 0745) Resp: [18] 18 (03/25 0745) SpO2: [91 %-99 %] 91 % (05/28 [...] Component Value Units Date/Time Culture, Body Fluid [[id number]] Collected: 05/26/18 1513 Specimen: Other from Ascites Fluid Updated: 05/28/18 1225 Specimen Description ASCITES FLUID GRAM STAIN STAIN PERFORMED ON CYTOSPIN GRAM STAIN WBC'S SEEN GRAM STAIN NO EPITHELIAL CELLS SEEN GRAM STAIN NO ORGANISMS SEEN CULTURE NO GROWTH 2 DAYS Culture, Body Fluid [[id number]] Collected: 05/26/18 1412 Specimen: Body Fluid from Pleural Fluid Updated: 05/28/18 1223 Specimen Description PLEURAL FLUID CULTURE NO GROWTH 2 DAYS Comprehensive metabolic panel [[id number]] (Abnormal) Collected: 05/28/18 0923 Specimen: Blood Updated: 05/28/18 1210 SODIUM 137 [...] (H) U/L EGFR 6 (L) mL/min/1.73m2 TSH [[id number]] Collected: 05/28/18922 Specimen: Blood Updated: 05/28/18 1210 TSH 1.270 uIU/mL Pathologist consult [[id number]] Collected: 05/26/18 1412 Updated: 05/28/18 1113 Pathologist Consult -- Troponin I [[id number]] Collected: 05/28/18922 Specimen: Blood Updated: 05/28/18 1055 CBC W/Auto Diff (Reflex to Manual) [[id number]] Collected: 05/28/18922 Specimen: Blood Updated: 05/28/18938 Sputum culture [[id number]] Collected: 05/27/182014 Specimen: Sputum from Sputum Updated: 05/28/18902 Specimen Description SPUTUM GRAM STAIN LESS THAN 10 WBCS/LPF GRAM STAIN LESS THAN 10 SEC/LPF GRAM STAIN NO ORGANISMS SEEN CULTURE CULTURE IN PROGRESS Hepatitis panel, chronic [[id number]] (Abnormal) Collected: 05/27/181757 Updated: 05/27/182030 Hep A Total Ab REACTIVE (A) HEP B SURFACE AG NON REACTIVE HEP B CORE AB,TOTAL NON REACTIVE HEP B SURFACE ANTIBODY 3.27 (H) IV HEPATITIS C NON REACTIVE HEPATITIS INTERP Current or past HAV infection. Past HBV infection or vaccination. No ser ologic evidence of HCV infection. CBC w/auto diff (reflex to manual) [[id number]] (Abnormal) Collected: 05/27/18 0425 Specimen: Blood Updated: [...] K/uL MORPHOLOGY 2+ Platelet Estimate DECREASED Phosphorus [[id number]] (Abnormal) Collected: 05/27/18424 Specimen: Blood Updated: 05/27/18 0629 PHOSPHORUS 8.0 (H) mg/dL Basic Metabolic Panel [[id number]] (Abnormal) Collected: 05/27/18424 Specimen: Blood Updated: 05/27/18628 SODIUM 135 mmol/L POTASSIUM 5.9 (H) mmol/L CHLORIDE 96 (L) mmol/L CO2 25 mmol/L ANION GAP AGAP 20 mmol/L GLUCOSE 74 mg/dL BUN 51 (H) mg/dL CREATININE 9.2 (H) mg/dL BUN/CREAT 6 CALCIUM 9.4 mg/dL EGFR 5 (L) mL/min/1.73m2 Magnesium [[id number]] (Abnormal) Collected: 05/27/18424 Specimen: Blood Updated: 05/27/1829 MAGNESIUM 2.7 (H) mg/dL Brain natriuretic peptide [[id number]] (Abnormal) Collected: 05/27/18424 Specimen: Blood Updated: 05/27/18 0546 BRAIN NATRIURETIC PEPTIDE 1,153.92 (H) pg/mL Respiratory Filmarray [[id number]] (Abnormal) Collected: 05/26/181805 Specimen: Nasopharynx/Oropharynx Updated: 05/26/182141 [...] performed by Molecular Methodology MRSA by PCR [[id number]] Collected: 05/26/181805 Specimen: Nasopharyngeal from Nares(Nose) Updated: 05/26/182025 SOURCE NARES(NOSE) MRSA PCR NEGATIVE Procalcitonin [[id number]] (Abnormal) Collected: 05/26/18 172 Updated: 05/26/18 1839 PROCALCITONIN 0.76 (H) ng/mL Albumin, Body Fluid [[id number]] Collected: 05/26/18 141 Specimen: Body Fluid from Lung, Right Lower Lobe Updated: 05/26/181728 FLUID ALBUMIN 2.3 g/dL Total Protein, Body Fluid [[id number]] Collected: 05/26/181411 Specimen: Body Fluid from Lung, Right Lower Lobe Updated: 05/26/181728 FLUID TOTAL PROTEIN 4.2 g/dL FLUID TP SOURCE PLEURAL FLUID Cell count, Body Fluid [[id number]] Collected: 05/26/18 141 Specimen: Body Fluid from Lung, Right Lower Lobe Updated: 05/26/18 170 FLUID TYPE PLEURAL FLUID COLOR SAMMIE APPEARANCE CLOUDY RBC'S 3,000 /mm3 TOTAL NUCLEATED CELLS 253 /mm3 NEUTROPHILS 22 % LYMPHOCYTES 8 % MONOCYTES/MACROPHAGES 65 % Mesothelial Cells 5 % CELLS COUNTED 100 pH, Body Fluid [[id number]] Collected: 05/26/18 141 Specimen: Body Fluid from Lung, Right Lower Lobe Updated: 05/26/18 1508 FLUID PH 7.45 Procalcitonin [[id number]] (Abnormal) Collected: 05/26/18 1214 Updated: 05/26/18 1330 PROCALCITONIN 0.56 (H) ng/mL Cardiac Panel [[id number]] (Abnormal) Collected: 05/26/18 1214 Updated: 05/26/18 1312 [...] ng/mL CK-MB Index 2.7 Brain natriuretic peptide [[id number]] (Abnormal) Collected: 05/26/18 1214 Updated: 05/26/18 1254 [...] radiologist report and is used for image PDC [employer] only Echo Cardiac Adult Complete Result Date: [...] 17. The mitral valve is normal. 18. Cdmr-ve-yemrbfiv eccentric mitral regurgitation i s present. 19. [...] mitral valve is normal. Mitral Kait ve: Vepe-sl-qjfyliro eccentric mitral regurgitation is present. Tricuspid Valve: [...] maxP.08 mmHg TR Vmax: 2.7 4 m/s Vehicle Glass Technician: MOO Authenticated by: Robel Yusuf MD Report [...] 17. The mitral valve is normal. 18. Ysce-ze-nzkrt ate eccentric mitral regurgitation is present. 19. [...] of this note may be different from dari coleman. Hospitalist Progress Note Dara Louise 23 y.o. [id number] female [facility] Day: LOS: 1 day Patient Summary: 23-year-old female with past medical history of end-stage renal dis ease on hemodialysis Monday, hypertension, anemia of chronic disease who we nt to [facility] with increasing shortness of breath found to have right pleural e ffusion who was transferred to [facility] underwent right-sided diagnostic and therapeu tic thoracocentesis [...] (36.8 C)] 98.2 F (36.8 C) (05/27 111) BP: (119-176)/(67-111) 131/87 (05/27 1115) Heart Rate: [75-109] 75 (05/27 1115) Resp: [16-18] 18 (05/27 1115) SpO2: [92 %-97 %] 93 % (05/27 1115) Height: [170.2 cm (5' 7")] 170.2 cm [...] Date/Time CBC w/auto diff (reflex to manual) [[id number]] (Abnormal) Collected: 05/27/185 Specimen: Blood Updated: 05/27/18710 WBC 6.62 K/uL [...] K/uL MORPHOLOGY 2+ Platelet Estimate DECREASED Phosphorus [[id number]] (Abnormal) Collected: 05/27/18424 Specimen: Blood Updated: 05/27/18 0629 PHOSPHORUS 8.0 (H) mg/dL Basic Metabolic Panel [[id number]] (Abnormal) Collected: 05/27/18424 Specimen: Blood Updated: 05/27/18628 SODIUM 135 mmol/L POTASSIUM 5.9 (H) mmol/L CHLORIDE 96 (L) mmol/L CO2 25 mmol/L ANION GAP AGAP 20 mmol/L GLUCOSE 74 mg/dL BUN 51 (H) mg/dL CREATININE 9.2 (H) mg/dL BUN/CREAT 6 CALCIUM 9.4 mg/dL EGFR 5 (L) mL/min/1.73m2 Magnesium [[id number]] (Abnormal) Collected: 05/27/18424 Specimen: Blood Updated: 05/27/1829 MAGNESIUM 2.7 (H) mg/dL Brain natriuretic peptide [[id number]] (Abnormal) Collected: 05/27/18424 Specimen: Blood Updated: 05/27/1846 BRAIN NATRIURETIC PEPTIDE 1,153.92 (H) pg/mL Respiratory Filmarray [[id number]] (Abnormal) Collected: 05/26/181805 Specimen: Nasopharynx/Oropharynx Updated: 05/26/182141 [...] performed by Molecular Methodology MRSA by PCR [[id number]] Collected: 05/26/181805 Specimen: Nasopharyngeal from Nares(Nose) Updated: 05/26/182025 SOURCE NARES(NOSE) MRSA PCR NEGATIVE Procalcitonin [[id number]] (Abnormal) Collected: 05/26/18 1727 Updated: 05/26/18 1839 PROCALCITONIN 0.76 (H) ng/mL Culture, Body Fluid [[id number]] Collected: 05/26/18 141 Specimen: Body Fluid from Pleural Fluid Updated: 05/26/18 1811 Pathologist consult [[id number]] Collected: 05/26/18 141 Updated: 05/26/18 1742 Albumin, Body Fluid [[id number]] Collected: 05/26/18 141 Specimen: Body Fluid from Lung, Right Lower Lobe Updated: 05/26/18 172 FLUID ALBUMIN 2.3 g/dL Total Protein, Body Fluid [[id number]] Collected: 05/26/18 141 Specimen: Body Fluid from Lung, Right Lower Lobe Updated: 05/26/18 172 FLUID TOTAL PROTEIN 4.2 g/dL FLUID TP SOURCE PLEURAL FLUID Cell count, Body Fluid [[id number]] Collected: 05/26/18 141 Specimen: Body Fluid from Lung, Right Lower Lobe Updated: 05/26/18 1708 FLUID TYPE PLEURAL FLUID COLOR SAMMIE APPEARANCE CLOUDY RBC'S 3,000 /mm3 TOTAL NUCLEATED CELLS 253 /mm3 NEUTROPHILS 22 % LYMPHOCYTES 8 % MONOCYTES/MACROPHAGES 65 % Mesothelial Cells 5 % CELLS COUNTED 100 Culture, Body Fluid [[id number]] Collected: 05/26/18 1513 Specimen: Other from Ascites Fluid Updated: 05/26/18 1631 Specimen Description ASCITES FLUID GRAM STAIN STAIN PERFORMED ON CYTOSPIN GRAM STAIN WBC'S SEEN GRAM STAIN NO EPITHELIAL CELLS SEEN GRAM STAIN NO ORGANISMS SEEN CULTURE PENDING pH, Body Fluid [[id number]] Collected: 05/26/18 1412 Specimen: Body Fluid from Lung, Right Lower Lobe Updated: 05/26/18 1508 FLUID PH 7.45 Procalcitonin [[id number]] (Abnormal) Collected: 05/26/18 1214 Updated: 05/26/18 1330 PROCALCITONIN 0.56 (H) ng/mL Cardiac Panel [[id number]] (Abnormal) Collected: 05/26/18 1214 Updated: 05/26/18 1312 [...] ng/mL CK-MB Index 2.7 Brain natriuretic peptide [[id number]] (Abnormal) Collected: 05/26/18 1214 Updated: 05/26/18 1254 [...] radiologist report and is used for image PDC [employer] only PROBLEM LIST Active Problems: ESRD on [...] heparin ANTHONY BELCHER MD 05/27/2018 Jae Gutierres, [facility] - 05/26/2018 6:05 PM PDTRenal [...] Álvarez | | | | | | [place] [address] | | | | | | [phone] | | | | | | | [...] | + +--------+ + + + | [facility] CARD PANEL W/O | STAT | 05/26/2018 [...] | performed at [facility], [address] | | | | | [address], | | | | | [place] [address] | | | + + + + + + + | Specimen | + + | Blood | + + + + + + + | Performing | Address | City/State/Zipcode | Phone Number | | Organization | | | | + + + + + | [facility] | [address] | [place] [address] | [phone] | | LABORATORY | [address]. | | [...] performed | | | | | at [facility], [address] | | | | | [address], | | | | | [place] [address] | | | | |Testing performed at L, [address], [place] [address] | | | | | | | | + + + + + + + | Specimen | + + | Blood | + + + + + + + | Performing | Address | City/State/Zipcode | Phone Number | | Organization | | | | + + + + + | [facility] | [address] | [place] [address] | [phone] | | LABORATORY | [address]vd. | | [...] (L)Comment: GFR <60: | >60 mL/min/1.73m2 | [facility] | | | CHRONIC KIDNEY DISEASE, [...] | performed at [facility], [address] | | | | | [facility], | | | | | [place] [address] | | | + + + + + + + | Specimen | + + | Blood | + + + + + + + | Performing | Address | City/State/Zipcode | Phone Number | | Organization | | | | + + + + + | [facility] | [address] | [place] [address] | [phone] | | LABORATORY | Blvd. | | [...] performed | | | | | at [facility], [address] | | | | | [facility], | | | | | [place] [address] | | | | |Testing performed at [facility], [address] [place] [address] | | | | | | | | + + + + + + + | Specimen | + + | Blood | + + + + + + + | Performing | Address | City/State/Zipcode | Phone Number | | Organization | | | | + + + + + | [facility] | [address] | [place] [address] | [phone] | | LABORATORY | Blvd. | | [...] | | systolic CHF (congestive heart failure) ([facility]) Transaminitis | | | The patient is [...] | | | antibiotic" for pneumonia at [facility]. Was throwing up & could not [...] 31 | 23 - 32 mmol/L | [facility] | | | | | LABORATORY | [...] 3.5 | 1.3 - 4.9 g/dL | [facility] | | | | | LABORATORY [...] | performed at [facility], [address] | | | | | [facility], | | | | | [place] [address] | | | + + + + + + + | Specimen | + + | Blood | + + + + + + + | Performing | Address | City/State/Zipcode | Phone Number | | Organization | | | | + + + + + | [facility] | [address] [place] [address] | [place] [address] | [phone] | | LABORATORY | kelly. | | | + + + + [...] performed | | | | | at [facility], [address] | | | | | [facility], | | | | | [place] [address] | | | | |Testing performed at [facility], [address] [facility], [place] [address] | | | | | | | | + + + + + + + | Specimen | + + | Blood | + + + + + + + | Performing | Address | City/State/Zipcode | Phone Number | | Organization | | | | + + + + + | [facility] | [address] | [place] [address] | [phone] | | LABORATORY | Blvd. | | [...] | + + + + + | [facility] | [address] | [place] [address] | | + + + + + Cholesterol, body fluid (05/29/2018 12:56 PM) + + + + + | Component | Value | Ref Range | Performed At | + + + + + | FLUID CHOLESTEROL | 56Comment: This is not a | mg/dL | [facility] | | | lining machine operator validated | | LABORATORY | | | sample type for this | | | | | method. No reference | | | | | ranges have been | | | | | established.Testing | | | | | performed at [facility], [address] | | | | | [facility], | | | | | [place] [address] | | | + + + + + + + | Specimen | + + | Body Fluid - | | Pleural, Right | + + + + + + + | Performing | Address | City/State/Zipcode | Phone Number | | Organization | | | | + + + + + | [facility] | [address] [place] [address] | [place] [address] | [phone] | | LABORATORY | Blvd. | | | + + + + + Lactate dehydrogenase, body fluid (05/29/2018 12:56 PM) + + + + + | Component | Value | Ref Range | Performed At | + + + + + | FLUID LDH | 151Comment: This is not | U/L | [facility] | | | a lining machine operator validated | | LABORATORY | | | sample type for this | | | | | method. No reference | | | | | ranges have been | | | | | established.Testing | | | | | performed at [facility], [address] | | | | | [facility], | | | | | [place] [address] | | | + + + + + + + | Specimen | + + | Body Fluid - | | Pleural, Right | + + + + + + + | Performing | Address | City/State/Zipcode | Phone Number | | Organization | | | | + + + + + | [facility] | [address] | [place] [address] | [phone] | | LABORATORY | [address] | | [...] + + + + + | [facility] | [address] | [place] [address] | [phone] | | LABORATORY | Blvd. | | [...] | | space is punctured with an 8-Congolese thoracentesis catheter. Fluid is | | | aspirated without complication. The patient tolerated the procedure | | | well. No immediate complications. Estimated Blood Loss: Minimal. | | + + + + + | Procedure Note | + + | Cedric, Rad Results In - 05/29/2018 3:42 PM PDT [...] the pleural space is punctured with an 8-Congolese | | thoracentesis catheter. Fluid is aspirated [...] | + + + + + | [facility] | [address] | [place] [address] | | + + + + + APTT (05/29/2018 8:52 AM) + + + + + | Component | Value | Ref Range | Performed At | + + + + + | APTT | 29Comment: Testing | 23 - 32 seconds | [facility] | | | performed at [facility];[address] | | | | | [address] [employer];[place] | | | | | [address] | | | + + + + + + + | Specimen | + + | Blood | + + + + + + + | Performing | Address | City/State/Zipcode | Phone Number | | Organization | | | | + + + + + | [facility] | [address] | [place] [address] | | + + + + + Protime-INR (05/29/2018 8:52 AM) + + + + + | Component | Value | Ref Range | Performed At | + + + + + | INR | 1.5Comment: REFERENCE | | [facility] | | | RANGE:0.9 [...] | | | | | performed at [facility] | | | | | [address] [facility];[place], [place] | | | | | [address] | | | + + + + + + + | Specimen | + + | Blood | + + + + + + + | Performing | Address | City/State/Zipcode | Phone Number | | Organization | | | | + + + + + | [facility] | [address] | [place] [address] | | + + + + + [...] SPECIMEN | 65 - 99 mg/dL | [facility] | | | SLIGHTLY HEMOLYZED | | LABORATORY | + + + + + | BUN | 25 | 8 - 25 mg/dL | [facility] | | | | | LABORATORY | + + + + + | CREATININE | 6.0 (H)Comment: SPECIMEN | 0.50 - 1.00 mg/dL | [facility] | | | SLIGHTLY HEMOLYZED | | [...] SPECIMEN | 0.1 - 1.5 mg/dL | [facility] | | | SLIGHTLY HEMOLYZED | | [...] | performed at [facility], [address] | | | | | [facility], | | | | | [place] [address] | | | + + + + + + + | Specimen | + + | Blood | + + + + + + + | Performing | Address | City/State/Zipcode | Phone Number | | Organization | | | | + + + + + | [facility] | [address] | [place] [address] | [phone] | | LABORATORY | [address]vd. | | [...] [address], | | | | | [place] [address] | | | | |Testing performed at [facility], [address] [facility], [place] [address] | | | | | | | | + + + + + + + | Specimen | + + | Blood | + + + + + + + | Performing | Address | City/State/Zipcode | Phone Number | | Organization | | | | + + + + + | [facility] | [address] | [place] [address] | [phone] | | LABORATORY | [address] | | [...] [facility] | [address] | [place] [address] | | + + + + + Troponin I (05/28/2018 1:59 PM) + + + + + | Component | Value | Ref Range | Performed At | + + + + + | TROPONIN I | 0.037Comment: 0.04 | 0.00 - 0.04 ng/mL | [facility] | | | ng/mL [...] performed at | | | | | [facility];[address] [facility] | | | | | [facility];[place] [address] | | | + + + + + + + | Specimen | + + | Blood | + + + + + + + | Performing | Address | City/State/Zipcode | Phone Number | | Organization | | | | + + + + + | [facility] | [address] | [place] [address] | | + + + + + [...] | performed at [facility], [address] | | | | | [facility], | | | | | [place] [address] | | | + + + + + + + | Specimen | + + | Blood | + + + + + + + | Performing | Address | City/State/Zipcode | Phone Number | | Organization | | | | + + + + + | [facility] | [address] | [place] [address] | [phone] | | LABORATORY | [address]vd. | | [...] performed at | | | | | [facility], [address] [place] [address] | | | | | [place] | | | | | [address] | | | + + + + + + + | Specimen | + + | Blood | + + + + + + + | Performing | Address | City/State/Zipcode | Phone Number | | Organization | | | | + + + + + | [facility] | [address] | [place] [address] | [phone] | | LABORATORY | [address]vd. | | | + + + + + Renal function panel (05/28/2018 12:09 PM) + + + + + | Component | Value | Ref Range | Performed At | + + + + + | SODIUM | 141 | 135 - 145 mmol/L | [facility] [...] GFR <60: | >60 mL/min/1.73m2 | [facility] | | | CHRONIC [...] | | | | | performed at [facility];[address] | | | | | [facility];[place], [place] | | | | | [address] | | | + + + + + + + | Specimen | + + | Blood - Blood | + + + + + + + | Performing | Address | City/State/Zipcode | Phone Number | | Organization | | | | + + + + + | [facility] | [address] | [place] [address] | | + + + + + EK STANDARD 12 LEAD (05/28/2018 11:58 AM) + + + + + | Component | Value | Ref Range | Performed At | + + + + + | Ventricular Rate | 75 | BPM | [facility] | + + + + + | Atrial Rate | 75 | BPM | [facility] | + + + + + | P-R Interval | 182 | ms | [facility] | + + + [...] + + + + | Calculated P [place] | 24 | degrees | [facility] E[facility] | + + + + + | Calculated R [place] | 24 | degrees | [facility] EKG | + + + + + | Calculated T [place] | 103 | degrees | [facility] EKG | + + + + + | Diagnosis | Normal sinus rhythmPoor | | [facility] E[facility] | | | R [...] + + + + + | [facility] | [address] | [place] [address] | | + + + + + hCG, serum, qualitative (05/28/2018 9:23 AM) + + + + + | Component | Value | Ref Range | Performed At | + + + + + | TEST,SERUM | NEGATIVEComment: Testing | NEGATIVE | [facility] | | | performed at [facility], [address] | | LABORATORY | | | [address], | | | | | [place] [address] | | | + + + + + + + | Specimen | + + | Blood | + + + + + + + | Performing | Address | City/State/Zipcode | Phone Number | | Organization | | | | + + + + + | [facility] | [address] [place] [address] | [place] [address] | [phone] | | LABORATORY | [address]vd[address] | | | + + + + + C-reactive protein (05/28/2018 9:23 AM) + + + + + | Component | Value | Ref Range | Performed At | + + + + + | CRP | 5.1 (H)Comment: Testing | <0.5 mg/dL | [facility] | | | performed at [facility], [address] | | LABORATORY | | | [facility], | | | | | [place] [address] | | | + + + + + + + | Specimen | + + | Blood | + + + + + + + | Performing | Address | City/State/Zipcode | Phone Number | | Organization | | | | + + + + + | [facility] | [address] | [place] [address] | [phone] | | LABORATORY | [address]vd[address] | | | + + + + + Sedimentation rate, automated (05/28/2018 9:23 AM) + + + + + | Component | Value | Ref Range | Performed At | + + + + + | ESR | 2Comment: Testing | 0 - 20 mm/Hr | [facility] | | | performed at [facility], [address] | | LABORATORY | | | [address], | | | | | [place] [address] | | | + + + + + + + | Specimen | + + | Blood | + + + + + + + | Performing | Address | City/State/Zipcode | Phone Number | | Organization | | | | + + + + + | [facility] | [address] | [place] [address] | [phone] | | LABORATORY | [address]vd[address] | | | + + + + + TSH (05/28/2018 9:23 AM) + + + + + | Component | Value | Ref Range | Performed At | + + + + + | TSH | 1.270Comment: Testing | 0.450 - 5.100 uIU/mL | [facility] | | | performed at [facility], [address] | | LABORATORY | | | [address], | | | | | [place] [address] | | | + + + + + + + | Specimen | + + | Blood | + + + + + + + | Performing | Address | City/State/Zipcode | Phone Number | | Organization | | | | + + + + + | [facility] | [address] | [place] [address] | [phone] | | LABORATORY | [address]vd. | | | + + + + + Troponin I (05/28/2018 9:23 AM) + + + + + | Component | Value | Ref Range | Performed At | + + + + + | TROPONIN I | 0.034Comment: 0.04 | 0.00 - 0.04 ng/mL | [facility] | | | ng/mL [...] performed at | | | | | [facility];[address] [facility] | | | | | Blvd;[place] [address] | | | + + + + + + + | Specimen | + + | Blood | + + + + + + + | Performing | Address | City/State/Zipcode | Phone Number | | Organization | | | | + + + + + | [facility] | [address] | [place] [address] | | + + + + + [...] | performed at [facility], [address] | | | | | [facility], | | | | | [place] [address] | | | + + + + + + + | Specimen | + + | Blood | + + + + + + + | Performing | Address | City/State/Zipcode | Phone Number | | Organization | | | | + + + + + | [facility] | [address] | [place] [address] | [phone] | | LABORATORY | [address] | | [...] performed | | | | | at [facility], [address] | | | | | [facility], | | | | | [place] [address] | | | | |Testing performed at [facility], [address] [place] [address] | | | | | | | | + + + + + + + | Specimen | + + | Blood | + + + + + + + | Performing | Address | City/State/Zipcode | Phone Number | | Organization | | | | + + + + + | [facility] | [address] | [place] [address] | [phone] | | LABORATORY | [address]vd. | | | + + + + + Pathology cytology - fluid (05/28/2018 8:00 AM) + + | Specimen | + + | Body Fluid | + + + + + | Narrative | Performed At | + + + | ORDERING PHYSICIAN: Aneudy Hunter MD PATIENT NAME: [facility] | | DARA LOUISE GENDER: Alysia : [...] PERFORMING LABORATORY: Technical preparation was performed by [employer] | | | [employer], [address] [place] [address] | | | ([employer] Dba: Matt Claudio D.O.; CLIA#: [id number]). | | | Professional interpretation was performed by [facility], | | | [address] [address] | | | ([employer] Dba: Daniel Larson M.D.; CLIA#: [id number]).6 | | | Diagnostician: Marie BROOKS ([facility]) [employer] | | | Diagnostician: Anahy Da Silva [...] | + + + + + | [facility] | [address] | [place] [address] | [phone] | | LABORATORY | [address]vd. | | [...] performed at | | | | | [facility], [address] [place] [address] | | | | | [facility], [place], [place] | | | | | [address] | | | + + + + + + + + + + | Performing | Address | City/State/Zipcode | Phone Number | | Organization | | | | + + + + + | [facility] | [address] | [place] [address] | [phone] | | LABORATORY | [address]vd. | | [...] rhythm. 2. A 2-dimensional transthoracic echocardiogram | [facility] | | with m-mode, spectral and color [...] valve is normal. 18. | | | Kuvc-tt-ecircfit eccentric mitral regurgitation is present. 19. | [...] DARA LOUISE Date of : 1995 | [facility] | | Performing Physician: Robel De La [...] valve is normal. 18. | | | Dqpt-nf-wficgrtj eccentric mitral regurgitation is present. 19. | [...] is | | | normal. Mitral Valve: Ylli-ei-asqdebre eccentric mitral | | | regurgitation is [...] TR Vmax: 2.74 m/s | | | Vehicle Glass Technician: MOO Authenticated by: J. Sudhakar Madelin MD Report | | | Date/Time: 05-27-2018 13:59:57 | | + + + + + | Procedure Note | + + | Sonido Steele In - 05/27/2018 2:00 PM PDT Patient Name: Anders LOUISE of | | : 1995Accession: [id number] Physician: Robel Yusuf | | INDICATIONS S | | OBCONCLUSIONS 1. Sinus [...] aortic stenosis.17. The mitral valve is normal.18. Evwk-bi-epbsvvbm | | eccentric mitral regurgitation is present.19. [...] | | arch are normal.26. No mass qzotposhoy77. No clot visualizedFINDINGS--------ECG rhythm: | | Sinus [...] The mitral valve is normal. Mitral Valve: Iwxh-os-evvezzbn eccentric mitral | | regurgitation is present.Tricuspid [...] (A-L): 30.43 | | ml/m2LAAs A2C: 20.97 ql9PIDIF A-L A2C: 65.71 mlLALs A2C: 5.68 cmLAAs A4C: 19.94 | | rt3JSBUW A-L A4C: 60.20 mlLALs A4C: 5.60 cmTAPSE: 1.58 cmHR: 79.62 BPMAV maxPG: | | 6.06 mmHgAV meanP.71 mmHgAV Vmax: 1.23 m/Elizabeth Vmean: 0.92 m/Elizabeth VTI: 20.07 | | cmAVA Vmax: 1.74 cm2AVA (VTI): 1.93 [id number] Vmax: 0.00 cm2/m2AVAI (VTI): 0.00 | | [...] The mitral valve is | | normal.18. Wnfl-xe-yjeloqlm eccentric mitral regurgitation is present.19. Severe | [...] and aortic arch are normal.26. No mass [id number]. No clot visualized | |LVIDd: 4.99 cm [...] |TR Vmax: 2.74 m/s | | | |Vehicle Glass Technician: MOO | |Authenticated by: Robel Yusuf MD [...] The mitral valve is normal. | |18. Duwe-de-kvebwjiw eccentric mitral regurgitation is present. | |19. [...] + + + + + | [facility] | [address] | [place] [address] | | + + + + + XR chest 2 view (05/27/2018 11:02 AM) + + + | Impressions | Performed At | + + + | 1. Large right-sided pleural effusion is causing near complete | [facility] | | atelectasis of the entire right [...] | + + + + + | [facility] | [address] | [place] [address] | | + + + + + Brain natriuretic peptide (05/27/2018 4:25 AM) + + + + + | Component | Value | Ref Range | Performed At | + + + + + | BRAIN NATRIURETIC | 1,153.92 (H)Comment: | 0 - 100 pg/mL | [facility] | | PEPTIDE | Testing performed at | | | | | [facility];[address];[place] [address] | | | + + + + + + + | Specimen | + + | Blood | + + + + + + + | Performing | Address | City/State/Zipcode | Phone Number | | Organization | | | | + + + + + | [facility] | [address] | [place] [address] | | + + + + + Phosphorus (05/27/2018 4:25 AM) + + + + + | Component | Value | Ref Range | Performed At | + + + + + | PHOSPHORUS | 8.0 (H)Comment: Testing | 2.3 - 4.8 mg/dL | [facility] | | | performed at [facility], [address] | | LABORATORY | | | [address], | | | | | [place] [address] | | | + + + + + + + | Specimen | + + | Blood | + + + + + + + | Performing | Address | City/State/Zipcode | Phone Number | | Organization | | | | + + + + + | [facility] | [address] | [place] [address] | [phone] | | LABORATORY | [address] | | | + + + + + Magnesium (05/27/2018 4:25 AM) + + + + + | Component | Value | Ref Range | Performed At | + + + + + | MAGNESIUM | 2.7 (H)Comment: Testing | 1.7 - 2.4 mg/dL | [facility] | | | performed at [facility], [address] | | LABORATORY | | | [facility], | | | | | [place] [address] | | | + + + + + + + | Specimen | + + | Blood | + + + + + + + | Performing | Address | City/State/Zipcode | Phone Number | | Organization | | | | + + + + + | [facility] | [address] | [place] [address] | [phone] | | LABORATORY | [address] | | [...] (H) | 8 - 25 mg/dL | [facility] | | | | | LABORATORY [...] 9.4 | 8.5 - 10.5 mg/dL | [facility] | | | | | LABORATORY | + + + + + | EGFR | 5 (L)Comment: GFR <60: | >60 mL/min/1.73m2 | [facility] | | | CHRONIC KIDNEY DISEASE, [...] | performed at [facility], [address] | | | | | [facility], | | | | | [place] [address] | | | + + + + + + + | Specimen | + + | Blood | + + + + + + + | Performing | Address | City/State/Zipcode | Phone Number | | Organization | | | | + + + + + | [facility] | [address] | [place] [address] | [phone] | | LABORATORY | [address]vd[address] | | | + + + + + CBC w/auto diff (reflex to manual) (05/27/2018 4:25 AM) + + + + + | Component | Value | Ref Range | Performed At | + + + + + | WBC | 6.62 | 3.80 - 11.00 K/uL | [facility] | + + + + + | RBC | 3.48 (L) | 3.70 - 5.10 M/uL | [facility] | + + + + + | HGB | 12.5 | 11.3 - 15.5 g/dL | [facility] | + + + + + | HCT | 37.9 | 34.0 - 46.0 % | [facility] | + + + + + | MCV | 108.8 (H) | 80.0 - 100.0 fl | [facility] | + + + + + | MCH | 35.8 (H) | 27.0 - 34.0 pg | [facility] | + + + + + | MCHC | 32.9 | 32.0 - 35.5 g/dL | [facility] [...] 0.10 | 0.00 - 0.50 K/uL | [facility] | + + + + + | BASOPHILS ABS | 0.05 | 0.00 - 0.10 K/uL | [facility] | + + + + + | MORPHOLOGY | 2+ | | [facility] | | | Comment: | | | | | MACRO | | | | | NORMAL PLT MORPH | | | | | | | | + + + + + | Platelet Estimate | DECREASEDComment: | | [facility] | | | Testing performed at | | | | | [facility];[address] | | [address];[place] [address] | | | + + + + + + + | Specimen | + + | Blood | + + + + + + + | Performing | Address | City/State/Zipcode | Phone Number | | Organization | | | | + + + + + | [facility] | [address] | [place] [address] | | + + + + + MRSA by PCR (05/26/2018 6:06 PM) + + + + + | Component | Value | Ref Range | Performed At | + + + + + | SOURCE | NARES(NOSE) | | [facility] | + + + + + | MRSA PCR | NEGATIVEComment: Testing | NEGATIVE | [facility] | | | performed at [facility];[address] | | | | [address];[place], [place] | | | | | [address] | | | + + + + + + + | Specimen | + + | Nasopharyngeal - | | Nares(Nose) | + + + + + + + | Performing | Address | City/State/Zipcode | Phone Number | | Organization | | | | + + + + + | [facility] | [address] | [place] [address] | | + + + + + [...] performed at | | | | | [facility], [address] | | | | | [place] | | | | | [address] | | | + + + + + + + | Specimen | + + | Nasopharynx/Orophary | | nx | + + + + + + + | Performing | Address | City/State/Zipcode | Phone Number | | Organization | | | | + + + + + | [facility] | [address] | [place] [address] | [phone] | | LABORATORY | Blvd[address] | | | + + + + + PROCALCITONIN (05/26/2018 5:27 PM) + + + + + | Component | Value | Ref Range | Performed At | + + + + + | PROCALCITONIN | 0.76 (H)Comment: | <0.5 ng/mL | [facility] | | | INTERPRETIVE [...] performed | | | | | at [facility];[address] [place] [address] | | | | | [facility];[place] [address] | | | + + + + + + + + + + | Performing | Address | City/State/Zipcode | Phone Number | | Organization | | | | + + + + + | [facility] | [address] | [place] [address] | | + + + + + [...] | + + + + + | [facility] | [address] | [place] [address] | | + + + + + [...] | + + + + + | [facility] | [address] | [place] [address] | | + + + + + [...] STAIN | STAIN PERFORMED ON | | [facility] | | | CYTOSPIN [...] + + + + + | [facility] | [address] | [place] [address] | [phone] | | LABORATORY | [address] | | | + + + + + | [facility] | [address] | [place] [address] | | + + + + + Pathologist consult (05/26/2018 2:12 PM) + + + + + | Component | Value | Ref Range | Performed At | + + + + + | Pathologist Consult | Comment: Review of | | [facility] | | | pleural [...] performed | | | | | at [facility];[address] | | | | | [address];[place] [address] | | | + + + + + + + + + + | Performing | Address | City/State/Zipcode | Phone Number | | Organization | | | | + + + + + | [facility] | [address] | [place] [address] | | + + + + + Total Protein, Body Fluid (05/26/2018 2:12 PM) + + + + + | Component | Value | Ref Range | Performed At | + + + + + | FLUID TOTAL PROTEIN | 4.2Comment: This is not | g/dL | [facility] | | | a lining machine operator validated | | LABORATORY | | | sample type for this | | | | | method. No reference | | | | | ranges have been | | | | | established.Testing | | | | | performed at [facility], [address] | | | | | [facility], | | | | | [place] [address] | | | + + + + + | FLUID TP SOURCE | PLEURAL FLUIDComment: | | [facility] | | | Testing performed at | | | | | [facility];[address];[place] [address] | | | + + + + + + + | Specimen | + + | Body Fluid - Lung, | | Right Lower Lobe | + + + + + + + | Performing | Address | City/State/Zipcode | Phone Number | | Organization | | | | + + + + + | [facility] | [address] | [place] [address] | | + + + + + | [facility] | [address] | [place] [address] | [phone] | | LABORATORY | [address]vd[address] | | | + + + + + Albumin, Body Fluid (05/26/2018 2:12 PM) + + + + + | Component | Value | Ref Range | Performed At | + + + + + | FLUID ALBUMIN | 2.3Comment: This is not | g/dL | [facility] | | | a lining machine operator validated | | LABORATORY | | | sample type for this | | | | | method. No reference | | | | | ranges have been | | | | | established.Testing | | | | | performed at [facility], [address] | | | | | [facility], | | | | | [place] [address] | | | + + + + + + + | Specimen | + + | Body Fluid - Lung, | | Right Lower Lobe | + + + + + + + | Performing | Address | City/State/Zipcode | Phone Number | | Organization | | | | + + + + + | [facility] | [address] | [place] [address] | [phone] | | LABORATORY | [address]vd[address] | | | + + + + + pH, Body Fluid (05/26/2018 2:12 PM) + + + + + | Component | Value | Ref Range | Performed At | + + + + + | FLUID PH | 7.45Comment: Testing | | [facility] | | | performed at [facility];[address] | | | [address];[place] | | | | | [address] | | | + + + + + + + | Specimen | + + | Body Fluid - Lung, | | Right Lower Lobe | + + + + + + + | Performing | Address | City/State/Zipcode | Phone Number | | Organization | | | | + + + + + | [facility] | [address] | [place] [address] | | + + + + + [...] + + + | [facility] | [address] | [place] [address] | [phone] | | LABORATORY | [address]vd[address] | | | + + + + + Cell count, Body Fluid (05/26/2018 2:12 PM) + + + + + | Component | Value | Ref Range | Performed At | + + + + + | FLUID TYPE | PLEURAL FLUID | | [facility] | + + + + + | COLOR | SAMMIE | | [facility] | + + + + + | APPEARANCE | CLOUDY | | [facility] | + + + + + | RBC'S | 3,000Comment: CORRECTED | /mm3 | [facility] | | | RESULTS CALLED TO | | | | | ELSA IN ED AT 1705 | | | | | BY LGJCORRECTED ON 05/26 | | | | | AT 1702: PREVIOUSLY | | | | | REPORTED <[id number] | | | + + + + + | TOTAL NUCLEATED | 253Comment: CORRECTED | /mm3 | [facility] | | CELLS | RESULTS CALLED TO | | | | | ELSA IN ED AT 1705 | | | | | BY LGJCORRECTED ON 05/26 | | | | | AT 1702: PREVIOUSLY | | | | | REPORTED 374 | | | + + + + + | NEUTROPHILS | 22 | % | [facility] | + + + + + | LYMPHOCYTES | 8 | % | [facility] | + + + + + | MONOCYTES/MACROPHAGE | 65 | % | [facility] | | S | | | | + + + + + | Mesothelial Cells | 5 | % | [facility] | + + + + + | CELLS COUNTED | 100Comment: Testing | | [facility] | | | performed at [facility];[address] | | | | | [address];[place] | | | | | [address] | | | + + + + + + + | Specimen | + + | Body Fluid - Lung, | | Right Lower Lobe | + + + + + + + | Performing | Address | City/State/Zipcode | Phone Number | | Organization | | | | + + + + + | [facility] | [address] | [place] [address] | | + + + + + PROCALCITONIN (05/26/2018 12:14 PM) + + + + + | Component | Value | Ref Range | Performed At | + + + + + | PROCALCITONIN | 0.56 (H)Comment: | <0.5 ng/mL | [facility] | | | INTERPRETIVE [...] performed | | | | | at [facility];[address] [place] [address] | | | | | [facility];[place] [address] | | | + + + + + + + + + + | Performing | Address | City/State/Zipcode | Phone Number | | Organization | | | | + + + + + | [facility] | [address] | [place] [address] | | + + + + + Brain natriuretic peptide (05/26/2018 12:14 PM) + + + + + | Component | Value | Ref Range | Performed At | + + + + + | BRAIN NATRIURETIC | 1,728.24 (H)Comment: | 0 - 100 pg/mL | [facility] | | PEPTIDE | Testing performed at | | | | | [facility];[address];[place] [address] | | | + + + + + + + + + + | Performing | Address | City/State/Zipcode | Phone Number | | Organization | | | | + + + + + | [facility] | [address] | [place] [address] | | + + + + + Cardiac Panel (05/26/2018 12:14 PM) + + + + + | Component | Value | Ref Range | Performed At | + + + + + | WBC | 5.73 | 3.80 - 11.00 K/uL | [facility] | + + + + + | RBC | 3.32 (L) | 3.70 - 5.10 M/uL | [facility] | + + + + + | HGB | 12.1 | 11.3 - 15.5 g/dL | [facility] | + + + + + | HCT | 36.1 | 34.0 - 46.0 % | [facility] | + + + [...] 0.06 | 0.00 - 0.50 K/uL | [facility] | + + + + + | BASOPHILS ABS | 0.06 | 0.00 - 0.10 K/uL | [facility] | + + + + + | MORPHOLOGY | 2+Comment: MACRO | | [facility] | + + + + + [...] (H) | 35 - 115 U/L | [facility] | + + + + + | AST | 82 (H) | 10 - 45 U/L | [facility] | + + + + + | ALT | 64 | 10 - 65 U/L | [facility] | + + + + + | EGFR | 6 (L)Comment: GFR <60: | >60 mL/min/1.73m2 | [facility] | | | CHRONIC [...] the | | | | | MDRD LAMS traceable | | | | | equation. | | | + + + + + | CPK | 291 (H) | 30 - 240 U/L | [facility] | + + + + + | INR | 1.6Comment: REFERENCE | | [facility] | | | RANGE:0.9 [...] 29 | 23 - 32 seconds | [facility] | + + + + + | MMB | 7.8 (H) | 0.5 - 3.6 ng/mL | [facility] | + + + + + | CK-MB Index | 2.7Comment: CK INDEX | | [facility] | | | INTERPRETATION: [...] | | | | | performed at [facility];[address] | | | | | [address];[place] | | | | | [address] | | | + + + + + + + + + + | Performing | Address | City/State/Zipcode | Phone Number | | Organization | | | | + + + + + | [facility] | [address] | [place] [address] | | + + + + [...] space: 4th Puncture | | | method: Fqcd-ddu-tchlxd catheter Ultrasound guidance: yes | | | [...] perforation, infection and | | | pain Camino protocol: Imaging studies available: yes | | [...] Performed At | + + + | [id number] Criteria Met 2 in 2 | ED [...] Count (12 mo.) Facility Visits Low Acuity [facility] | | | [facility] 1 0 [facility] 5 0 Total 6 0 | | | Note: Visits indicate total known visits. Medicaid Low Acuity Dx | | | are the number of primary diagnoses on the Medicaid's Low Acuity dx | | | list. Recent Emergency Department Visit Summary Date Facility | | | City State Type Diagnoses or Chief Complaint May 26, 2018 [facility] | | | [facility] [place] Emergency Chest pain, unspecified | | | May 26, 2018 [facility] [place] Emergency Chief | | | Complaint: FLU SYMPTOMS May 25, 2018 [place] [facility] [place] [place] | | | Emergency Chief Complaint: SOB/COUGH May 10, 2018 [facility] | | | [facility] [...] | | | disease Feb 14, 2018 [place] [facility] [place] [place] Emergency | | | Functional dyspepsia Other ascites Epigastric pain | | | Allergy status to narcotic agent status Radiographic dye | | | allergy status Nicotine dependence, unspecified, uncomplicated | | | Other intermediate (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 Sep 16, 2017 | | | [place] [facility] [place] [place] Emergency Chronic kidney disease, | | | unspecified Dependence on renal dialysis Pain, | | | unspecified Allergy status to narcotic agent status | | | Nicotine dependence, unspecified, uncomplicated Other hop worker | | | (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 Elevated [...] Portal This patient has registered at the [facility] | | | [facility] Emergency Department For more information visit: | | | [email or web address] | | | [email or web address] [facility] PLEASE NOTE: 1. Any care recommendations [...] | | completeness of information provided. 2019 [employer] | | | [employer]. - [email or web address] | | + + + + + | Procedure Note | + + | Interface, Lab - 05/26/2018 12:00 PM PDT Formatting of this note may be different | | from the original.[id number] [id number] Met 2 in 2Security and | | SafetyNo recent Security Events currently on fileED Care GuidelinesThere are currently | | no ED Care Guidelines for this patient. Please check your facility's medical records | | system.Prescription Drug Report (12 Mo.)PDMP query found no report.E.D. Visit Count (12 | | mo.)Facility Visits Low Acuity [facility] 1 0 [facility] | | Hospital 5 0 Total 6 0 Note: Visits indicate total known visits. Medicaid Low Acuity Dx | | are the number of primary diagnoses on the Medicaid's Low Acuity dx list. Recent | | Emergency Department Visit SummaryDate Facility City State Type Diagnoses or Chief | | Complaint May 26, 2018 [facility] [place] Emergency Chest pain, | | unspecified May 26, 2018 [facility] [place] [place] Emergency Chief Complaint: FLU | | SYMPTOMS May 25, 2018 [facility] [place] [facility] [place] [place] Emergency Chief Complaint: | [...] Nicotine | | dependence, unspecified, uncomplicated Other hop worker (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 Sep | | 2017 [facility] [place] [facility] [place] Emergency Chronic kidney disease, unspecified | | Dependence on renal dialysis Pain, unspecified Allergy status to narcotic agent | | status Nicotine dependence, unspecified, uncomplicated Other hop worker (current) | | 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 Elevated blood-pressure [...] | Anupam patient has registered at the [facility] Emergency | | Department For more information visit: | | [email or web address] andsp | | PLEASE NOTE: 1. Any care [...] or completeness of information | | provided.2019 [employer]. - [email or web address] | | Hypertensive heart and chronic kidney disease without heart failure, with stage 5 chroni c kidney disease, or end stage renal disease | | | |Feb 14, 2018 [facility] [place] [facility] [place] Emergency | | Functional dyspepsia | | Other ascites | | Epigastric pain | | Allergy status to narcotic agent status | | Radiographic dye allergy status | | Nicotine dependence, unspecified, uncomplicated | | Other hop worker (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 | | | |Sep 16, 2017 [facility] [place] [facility] [place] Emergency | | Chronic kidney disease, unspecified | | Dependence on renal dialysis | | Pain, unspecified | | Allergy status to narcotic agent status | | Nicotine dependence, unspecified, uncomplicated | | Other intermediate (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 | | Elevated blood-pressure [...] Emergency Department | |For more information visit: [email or web address] | |andnbsp PLEASE NOTE: | | 1. [...] of information provided. | | | |2019 [employer]. - [email or web address] | + + + +---------+ + + [...] [facility] | [address] | [place] [address] | | + + + + + [...] 10 mLs | | | | 0.5% -1:[id number] injection 10 mL | Other | 9 [...] PDT | | | | | Dialysis, [place] 05/30/18 at 0730, | | | | [...] PDT | | | | | Dialysis, [place] 05/27/18 at 1700, | | | | [...] PDT | | | | | Dialysis, [facility] 05/28/18 at 1230, | | | [...] | | Times Daily, First dose on Tu | | PDT | | | | [...] | | | Moderate Pain (4-6), Starting Mon | | PDT | | | [...]
--- OUTSIDE RECORDS SUMMARY | ~2018-06-19 | XMS | Encounter Summary ---
Demographics + + + | Address | [address] | | | [place] [address] | + + + | Home Phone [...] + | Author | [facility] | | | and Josephana | + + + | Organization | [facility] [...] Providers + +------+ + | Care Camp Attendant Name | Role | Phone | [...] [address] [place] | [place] [address] | to return call to | | | | [address] [place] | [phone] | complete intake | | | | [address] | | quest.) | | | | [phone] | | | +--------+ + + + [...] this encounter Progress Elodia Velasquez - 06/12/2018 0942 PDTReferral: Called Dara at both numbers listed and lvm to return my call to complete intake boo love. documented in this encount er Plan of Treatment Not on filedocumented as of this encounter Visit Diagnoses Not on filedocumented in this encounter"
--- OUTSIDE RECORDS SUMMARY | ~2018-06-19 | XMS | Clinical Summary ---
Demographics + + + | Address | [address] | | | [place] [address] | + + + | Home Phone [...] | [facility] | | | and [place] | + + + | Organization | [facility] [...] Team Providers + +------+ + | Care Complaint Investigator Name | Role | Phone | [...] | | | renal disease) ([facility]) | protocol | | | | | [...] Overview: Active Kidney Transplant Waiting List at [facility]: | | 03/07/2014 | + [...] | | Treated by Dr. Joy, pediatric ophthalmologist. | + + + +---+ | ESRD [...] declot | | but reclotted). Listed at [facility] for kidney transplant - status [...] | | | | | | (Dara [facility] so I | | | | | [...] | | | | | one in [place]. I | | | | | | [...] +--------+ +---------+--------+ | MEDICARE | MEDICA | [id number] | 05/05/19 | [phone] | | Medica | | | RE | | 13-Pre | 5 | | re | | | PART A | | sent | | | | | | AND B | | | | | | + +--------+ +--------+ +---------+--------+ | [employer] | [employer] | [id number] | | [phone] | | Medica | [...] [place] | | | 2 (Home) | [address] | + +--------+ +--------+ + + | Cory Weldon | Person | Father | [birth year] | [address] | | | al/Fam | | 1970 | [phone] | [place] [address] | | | [place] | | | 9 (Home) | | + +--------+ +--------+ + + Advance Directives Patient has advance care planning documents, and code status on file. For more information, please contact:[facility] and [place] [address] + + + + + | Code Status | Date | Date | Comments | | | Activated | Inactivated | | + + + + + | Full Code | 02/24/2014 | 02/24/2014 | | | | 11:17 | 14:29 | | + + + + +
--- OUTSIDE RECORDS SUMMARY | ~2018-06-19 | XMS | Encounter Summary ---
Demographics + + + | Address | [address] | | | [place] [address] | + + + | Home Phone [...] | [facility] | | | and [place]ana | + + + | Organization | [facility] | [...] Providers + +------+ + | Care Aircraft Parts Assembler Name | Role | Phone | [...] | | KIDNEY TRANSPLANT | [address] [place], | | | | | [address] [facility] [address] | | | | | [address] [place] | [phone] | | | | | [address] | | | | | | [phone] | | | +--------+ + + + [...]
--- OUTSIDE RECORDS SUMMARY | ~2018-06-19 | XMS | Clinical Summary ---
Demographics + + + | Address | [address] | | | [place] [address] | + + + | Home Phone [...] | | | | | [place] [address] | | + + + + + | Thania Mallory | ECON | [address] | | | | | [place] [address] | | + + + + + | Deidra Weldon | ECON | [address] | | | | | [place] | | | | | [address] | | + + + + + Care Team Providers + +------+ + | Care Associate Professor Computer Science Name | Role | Phone | + +------+ + | Jonathan Alonso MD | PP | | + +------+ + Source Comments DANILO is fully live on both EpicCare Ambulatory and EpicCare InPatient.[facility] Allergies + + + + + [...] Denise | | | | | | [place], [place] | | | | | | [address] | | | | | | [phone] | | | | | | | [...] | re | [address] | [place] [address] | | | B | | | | | + +--------+ +--------+ + + | PATIENT ACCESS SPECIALIST MEDICAID | PATIENT ACCESS SPECIALIST | xxxxxxxx | Medica | | | | | [place] | | id | | | | | [place] | | | | | + +--------+ +--------+ + + | MEDICARE RENAL | MEDICA | xxxxxxxxxx | Agency | | RENAL DEPT [id number] | | RECIPIENT EVAL | RE | | | | [place] [address] | | | RENAL | | | [...] | | al/Fam | | 1994 | [phone] | [address] [place] | | | kamron | | | [phone] Home: | [address] | | | | | | | | | | | | | [phone] | | | | | | [phone] | | + +--------+ +--------+ + + | CORY ALVES | Kisha | Mother | [birth year]06[birth year] | Home: | [address] | | | l | | [phone] | [phone] | [address] [place] | | | Gamal | | | [address] | [address] | | | g | | | | | + +--------+ +--------+ + +
--- OUTSIDE RECORDS SUMMARY | ~2018-06-19 | XMS | Encounter Summary ---
Demographics + + + | Address | [address] | | | [place] [address] | + + + | Home Phone [...] + + + | Author | [employer] | + + + | Organization [...] Providers + +------+ + | Care Car Coupler Name | Role | Phone | [...] | | | | | | [place] [address] | | | | | | [phone] | | | | | | | [...] | +--------+---------+ + + + | 04/25/ Office | Cardiology | Gretchen Teran | | | 2018 | Visit | | [address] | | | | | | [place] | | | | | | [place] [address] | | | | | | [phone] | | | | | | | [...] DARA WELDON Date of : 1995 | [facility] | | Performing Physician: René Noonan MD [...] MV A Shahid: 0.39 m/s MV Dec Bourbon: 9.46 m/s2 | | | MV DecT: 106.01 ms MV E Shahid: 1.00 m/s MV E/A Ratio: | | | 2.54 E/E' Sept: 23.82 E' Lat: 0.08 m/s E' Sept: 0.04 | | | m/s RAP: 15 mmHg RV S': 0.11 m/s RVSP: 67.64 mmHg TR | | | maxP.64 mmHg TR Vmax: 3.61 m/s Employee Training Specialist: | | | Authenticated by: René Noonan MD Report Date/Time: -- | | | [id number]:15:25 | | + + + + + | Procedure Note | + + | Sonido Steele Results In - 06/12/2018 4:15 PM PDT Patient Name: Anders WELDON of | | : 1995Accession: [id number] Physician: René Noonan MD | | INDICATIONS [...] (A-L): 31.60 | | ml/m2LAAs A2C: 18.56 [id number] A-L A2C: 58.49 mlLAESV MOD A2C: 54.57 mlLALs A2C: | | 5.00 cmLAAs A4C: 17.96 jn3NOEXV A-L A4C: 52.99 mlLAESV MOD A4C: 44.93 mlLALs A4C: | | 5.18 cmLAESV(MOD BP): 49.83 mlRAAs: 18.33 td5KOHPH A-L: 57.01 mlRAESV MOD: | | 56.24 mlRALs: 5.02 cmTAPSE: 1.98 cmAV Env.Ti: 227.35 msAV maxP.22 mmHgAV | | meanP.25 mmHgAV Vmax: 1.59 m/Elizabeth Vmean: 1.06 m/Elizabeth VTI: 24.30 cmAVA Vmax: | | 2.68 cm2AVA (VTI): 2.73 ug1UHWR Vmax: 0.00 cm2/m2AVAI (VTI): 0.00 cm2/m2LVOT | | Env.Ti: 210.72 msLVOT maxP.99 mmHgLVOT meanP.87 mmHgLVSI Dopp: 37.17 | | ml/m2LVSV Dopp: 66.54 mlLVOT Vmax: 1.41 m/sLVOT Vmean: 1.03 m/sLVOT VTI: 21.88 | | cmMV A Shahid: 0.39 m/sMV Dec Bourbon: 9.46 m/s2MV DecT: 106.01 msMV E Shahid: 1.00 | | m/sMV E/A Ratio: 2.54 E/E' Sept: 23.82 E' Lat: 0.08 m/sE' Sept: 0.04 m/sRAP: | | 15 mmHgRV S': 0.11 m/sRVSP: 67.64 mmHgTR maxP.64 mmHgTR Vmax: 3.61 | | m/sSonographer: Authenticated by: René Noonan MDReport Date/Time: -- | | [id number]:15:25IMPRESSION:1. Overall left ventricular systolic function is | [...] A Shahid: 0.39 m/s | |MV Dec Bourbon: 9.46 m/s2 | |MV DecT: 106.01 ms | |MV E Shahid: 1.00 m/s | |MV E/A Ratio: 2.54 | |E/E' Sept: 23.82 | |E' Lat: 0.08 m/s | |E' Sept: 0.04 m/s | |RAP: 15 mmHg | |RV S': 0.11 m/s | |RVSP: 67.64 mmHg | |TR maxP.64 mmHg | |TR Vmax: 3.61 m/s | | | |Employee Training Specialist: | |Authenticated by: René Noonan MD | |Report Date/Time: -- [id number]:15:25 | | | |IMPRESSION: | |1. Overall [...] [facility] | [address] | [place] [address] | | + + + + + in this encounter Visit Diagnoses + + | Diagnosis | + + | Dyspnea, unspecified type | + +"
--- OUTSIDE RECORDS SUMMARY | ~2018-06-19 | XMS | Encounter Summary ---
Demographics + + + | Address | [address] | | | [place] [address] | + + + | Home Phone [...] | Author | [facility] | | | and [place] | + + + | Organization | [facility] | | [...] Team Providers + +------+ + | Care Escapement Maker Name | Role | Phone | [...] | | KIDNEY TRANSPLANT | [address] [place], | | | | | [address] [place] | [place] [address] | | | | | [address] [place] | [phone] | | | | | [address] | | | | | | [phone] | | | +--------+ + + + [...]
--- OUTSIDE RECORDS SUMMARY | ~2018-06-19 | XMS | Encounter Summary ---
Demographics + + + | Address | [address] | | | [place] [address] | + + + | Home Phone [...] + + + | Author | [employer] | + + + | Organization | [facility] | + + + [...] Team Providers + +------+ + | Care Bellstand Attendant Name | Role | Phone | [...] | | | | | | [place] [address] | | | | | | [phone] | | | | | | | [...] [address] | | | | | | [place] [address] | | | | | | [phone] | | | | | | | [...] | + + + | Patient Name: ADRA WELDON Date of : 1995 | [facility] | | Performing Physician: René Noonan [...] MV A Shahid: 0.39 m/s MV Dec Villalba: 9.46 m/s2 | | | MV DecT: 106.01 ms MV E Shahid: 1.00 m/s MV E/A Ratio: | | | 2.54 E/E' Sept: 23.82 E' Lat: 0.08 m/s E' Sept: 0.04 | | | m/s RAP: 15 mmHg RV S': 0.11 m/s RVSP: 67.64 mmHg TR | | | maxP.64 mmHg TR Vmax: 3.61 m/s Marketing Ambassador: | | | Authenticated by: René Noonan MD Report Date/Time: -- | | | [id number]:15:25 | | + + + + + | Procedure Note | + + | Sonido Steele Results In - 06/12/2018 4:15 PM PDT Patient Name: Anders WELDON of | | : 1995Accession: [id number] Physician: René Noonan MD | | INDICATIONS [...] (A-L): 31.60 | | ml/m2LAAs A2C: 18.56 bt1SAHCY A-L A2C: 58.49 mlLAESV MOD A2C: 54.57 mlLALs A2C: | | 5.00 cmLAAs A4C: 17.96 cn7LHHSK A-L A4C: 52.99 mlLAESV MOD A4C: 44.93 mlLALs A4C: | | 5.18 cmLAESV(MOD BP): 49.83 mlRAAs: 18.33 vg1QSXLI A-L: 57.01 mlRAESV MOD: | | 56.24 mlRALs: 5.02 cmTAPSE: 1.98 cmAV Env.Ti: 227.35 msAV maxP.22 mmHgAV | | meanP.25 mmHgAV Vmax: 1.59 m/Elizabeth Vmean: 1.06 m/Elizabeth VTI: 24.30 cmAVA Vmax: | | 2.68 cm2AVA (VTI): 2.73 ds1QVOH Vmax: 0.00 cm2/m2AVAI (VTI): 0.00 cm2/m2LVOT | | Env.Ti: 210.72 msLVOT maxP.99 mmHgLVOT meanP.87 mmHgLVSI Dopp: 37.17 | | ml/m2LVSV Dopp: 66.54 mlLVOT Vmax: 1.41 m/sLVOT Vmean: 1.03 m/sLVOT VTI: 21.88 | | cmMV A Shahid: 0.39 m/sMV Dec Villalba: 9.46 m/s2MV DecT: 106.01 msMV E Shahid: 1.00 | | m/sMV E/A Ratio: 2.54 E/E' Sept: 23.82 E' Lat: 0.08 m/sE' Sept: 0.04 m/sRAP: | | 15 mmHgRV S': 0.11 m/sRVSP: 67.64 mmHgTR maxP.64 mmHgTR Vmax: 3.61 | | m/sSonographer: Authenticated by: René Noonan MDReport Date/Time: -- | | [id number]:15:25IMPRESSION:1. Overall left ventricular systolic function is | [...] A Shahid: 0.39 m/s | |MV Dec Villalba: 9.46 m/s2 | |MV DecT: 106.01 ms | |MV E Shahid: 1.00 m/s | |MV E/A Ratio: 2.54 | |E/E' Sept: 23.82 | |E' Lat: 0.08 m/s | |E' Sept: 0.04 m/s | |RAP: 15 mmHg | |RV S': 0.11 m/s | |RVSP: 67.64 mmHg | |TR maxP.64 mmHg | |TR Vmax: 3.61 m/s | | | |Marketing Ambassador: | |Authenticated by: René Noonan MD | |Report Date/Time: -- [id number]:15:25 | | | |IMPRESSION: | |1. Overall [...] | + + + + + | [facility] | [address] | [place] [address] | | + + + + + in this encounter Visit Diagnoses + + | Diagnosis | + + | Dyspnea, unspecified type | + +"
--- OUTSIDE RECORDS SUMMARY | ~2018-06-19 | XMS | Encounter Summary ---
Demographics + + + | Address | [address] | | | [place] [address] | + + + | Home Phone [...] + + + | Author | [employer] | + + + | Organization | [facility] | + + + [...] Providers + +------+ + | Care Needle Setter Name | Role | Phone | [...] | | | | | | [place] [address] | | | | | | [phone] | | | | | | | [...] + | 04/25/ Office | Cardiology | Gretcehn Teran | | | 2018 | Visit | | [address] | | | | | | [place] | | | | | | [place] [address] | | | | | | [phone] | | | | | | | [...] DARA WELDON Date of : 1995 | [facility] | | Performing Physician: René Noonan [...] MV A Shahid: 0.39 m/s MV Dec Sioux: 9.46 m/s2 | | | MV DecT: 106.01 ms MV E Shahid: 1.00 m/s MV E/A Ratio: | | | 2.54 E/E' Sept: 23.82 E' Lat: 0.08 m/s E' Sept: 0.04 | | | m/s RAP: 15 mmHg RV S': 0.11 m/s RVSP: 67.64 mmHg TR | | | maxP.64 mmHg TR Vmax: 3.61 m/s Animal Killer: | | | Authenticated by: René Noonan MD Report Date/Time: -- | | | [id number]:15:25 | | + + + + + | Procedure Note | + + | Sonido Steele Results In - 06/12/2018 4:15 PM PDT Patient Name: Anders WELDON of | | : 1995Accession: [id number] Physician: René Noonan MD | | INDICATIONS [...] (A-L): 31.60 | | ml/m2LAAs A2C: 18.56 qo4OITKT A-L A2C: 58.49 mlLAESV MOD A2C: 54.57 mlLALs A2C: | | 5.00 cmLAAs A4C: 17.96 gz2GKIRW A-L A4C: 52.99 mlLAESV MOD A4C: 44.93 mlLALs A4C: | | 5.18 cmLAESV(MOD BP): 49.83 mlRAAs: 18.33 ot1AOUQF A-L: 57.01 mlRAESV MOD: | | 56.24 mlRALs: 5.02 cmTAPSE: 1.98 cmAV Env.Ti: 227.35 msAV maxP.22 mmHgAV | | meanP.25 mmHgAV Vmax: 1.59 m/Elziabeth Vmean: 1.06 m/Elizabeth VTI: 24.30 cmAVA Vmax: | | 2.68 cm2AVA (VTI): 2.73 tq5ETSK Vmax: 0.00 cm2/m2AVAI (VTI): 0.00 cm2/m2LVOT | | Env.Ti: 210.72 msLVOT maxP.99 mmHgLVOT meanP.87 mmHgLVSI Dopp: 37.17 | | ml/m2LVSV Dopp: 66.54 mlLVOT Vmax: 1.41 m/sLVOT Vmean: 1.03 m/sLVOT VTI: 21.88 | | cmMV A Shahid: 0.39 m/sMV Dec Sioux: 9.46 m/s2MV DecT: 106.01 msMV E Shahid: 1.00 | | m/sMV E/A Ratio: 2.54 E/E' Sept: 23.82 E' Lat: 0.08 m/sE' Sept: 0.04 m/sRAP: | | 15 mmHgRV S': 0.11 m/sRVSP: 67.64 mmHgTR maxP.64 mmHgTR Vmax: 3.61 | | m/sSonographer: Authenticated by: René Noonan MDReport Date/Time: -- | | [id number]:15:25IMPRESSION:1. Overall left ventricular systolic function is | [...] A Shahid: 0.39 m/s | |MV Dec Sioux: 9.46 m/s2 | |MV DecT: 106.01 ms | |MV E Shahid: 1.00 m/s | |MV E/A Ratio: 2.54 | |E/E' Sept: 23.82 | |E' Lat: 0.08 m/s | |E' Sept: 0.04 m/s | |RAP: 15 mmHg | |RV S': 0.11 m/s | |RVSP: 67.64 mmHg | |TR maxP.64 mmHg | |TR Vmax: 3.61 m/s | | | |Animal Killer: | |Authenticated by: René Noonan MD | |Report Date/Time: -- [id number]:15:25 | | | |IMPRESSION: | |1. Overall [...] [facility] | [address] | [place] [address] | | + + + + + in this encounter Visit Diagnoses + + | Diagnosis | + + | Dyspnea, unspecified type | + +"
--- OUTSIDE RECORDS SUMMARY | ~2018-06-19 | XMS | Encounter Summary ---
Demographics + + + | Address | [address] | | | [place] [address] | + + + | Home Phone [...] Author | [facility] | | | and [place]ana | + + + | Organization | [facility] [...] Providers + +------+ + | Care Quality Assurance Monitor Name | Role | Phone | [...] | | KIDNEY TRANSPLANT | [address] [place], | | | | | [address] [facility] [address] | | | | | [address] [place] | [phone] | | | | | [address] | | | | | | [phone] | | | +--------+ + + + [...]
--- OUTSIDE RECORDS SUMMARY | ~2018-06-19 | XMS | Encounter Summary ---
Demographics + + + | Address | [address] | | | [place] [address] | + + + | Home Phone [...] | Author | [facility] | | | and [place]ana | + + + | Organization | [facility] | | [...] Team Providers + +------+ + | Care Wedding Planning Internship Name | Role | Phone | [...] [address] [place] | [place] [address] | to return call to | | | | [address] [place] | [phone] | complete intake | | | | [address] | | quest.) | | | | [phone] | | | +--------+ + + + [...]
--- OUTSIDE RECORDS SUMMARY | ~2018-06-19 | XMS | Encounter Summary ---
Demographics + + + | Address | [address] | | | [place] [address] | + + + | Home Phone [...] + | Author | [facility] | | | and [place]ana | + + + | Organization | [facility] | [...] Team Providers + +------+ + | Care Mangle Operator Garments Name | Role | Phone | + [...] | | KIDNEY TRANSPLANT | [address] [place], | | | | | [address] [place] | [place] [address] | | | | | [address] [place] | [phone] | | | | | [address] | | | | | | [phone] | | | +--------+ + + + [...]
--- OUTSIDE RECORDS SUMMARY | ~2018-06-19 | XMS | Encounter Summary ---
Demographics + + + | Address | [address] | | | [place] [address] | + + + | Home Phone [...] + + + | Author | [employer] | + + + | Organization | [facility] | + + + [...] Providers + +------+ + | Care Insurance Sales Supervisor Name | Role | Phone | [...] | Internal | Diagnoses | | [facility] 4th | | | | Medicine | Acute | | [facility] | | | | | respiratory | | [address] | | | | | distress | | [address] | | | | | Other | | [place], [place] | | | | | ascites | | [address] Phone: | | | | | Pleural | | [phone] | | | | | effusion on | | Fax: | | | | | right Chest | | [phone] | | | | | pain, | | | | | | | unspecified | | | | | | | type | | | +--------+--------+ + + + + Encounter Details +--------+ + + + + | Date | Type | Department | Care Team | Description | +--------+ + + + + | 05/26/ | Hospital | [facility] | Aneudy Hunter, | Pleural effusion on | | 2019 - | Encounter | [address] | MD [address] | right (Primary Dx); | | | | [facility] | [place] [address] | Chest pain, | | 06/01/ | | [address] | [phone] [place], | unspecified type; | | 2019 | | [place] [address] | MD [place] [address] | Other ascites; Acute | | | | [phone] | [address] | respiratory | | | | | [place] [address] | distress; End-stage | | | | | [phone] | renal disease on | | | | | | hemodialysis (HCC); | | | | | Anthony Belcher MD | Hyperkalemia; | | | | | [address] | Hyperphosphatemia; | | | | | [place] [address] | At high risk for | | | | | [phone] | electrolyte | | | | | | imbalance; Acute | | | | | Darell Kowalski MD | systolic CHF | | | | | [address] | (congestive heart | | | | | [place] [address] | failure) ([facility]); | | | | | [phone] | Hypoalbuminemia; | | | | | | Anemia in ESRD | | | | | | (end-stage renal | | | | | | disease) (FORM[facility]LY [facility]); ESRD | | | | | [...] may be different from pierre coleman. [facility] Service: Hospitalist Physician Discharge Summary Pt: [...] 17. The mitral valve is normal. 18. Gkzc-kd-vjnxi ate eccentric mitral regurgitation is present. 19. [...] of chronic disease who went to [facility] with increasing shortness of breath found to have right pleural effusion who was transfer red to [facility] underwent right-sided diagnostic [...] hyperkalemia with that. I discussed with the ammonia technician as well regarding not being on [place]/ARB. [...] Component Value Units Date/Time Culture, Body Fluid [[id number]] Collected: 05/26/18 1412 Specimen: Body Fluid from Pleural Fluid Updated: 05/30/18 0733 Specimen Description PLEURAL FLUID GRAM STAIN WBC'S SEEN GRAM STAIN NO ORGANISMS SEEN GRAM STAIN STAIN PERFORMED ON CYTOSPIN CULTURE NO GROWTH 4 DAYS Culture, Body Fluid [[id number]] Collected: 05/26/18 1513 Specimen: Other from Ascites Fluid Updated: 05/30/18 0732 Specimen Description ASCITES FLUID GRAM STAIN STAIN PERFORMED ON CYTOSPIN GRAM STAIN WBC'S SEEN GRAM STAIN NO EPITHELIAL CELLS SEEN GRAM STAIN NO ORGANISMS SEEN CULTURE NO GROWTH 4 DAYS Gram stain [[id number]] Collected: 05/29/18 1256 Specimen: Sputum from Thoracic Fluid Updated: 05/29/18 8352 Specimen Description THORACIC FLUID CULTURE 1+ WBC'S SEEN NO ORGANISMS SEEN Lactate dehydrogenase, body fluid [[id number]] Collected: 05/29/18 1256 Specimen: Body Fluid from Pleural, Right Updated: 05/29/18 1619 FLUID LDH 151 U/L Cholesterol, body fluid [[id number]] Collected: 05/29/18 1256 Specimen: Body Fluid from [...] [address] [place] [address] In 1 week Carolina Mahmood, DO [address] [place] [id number] In 1 week Daniela Ibarra MD [address] [facility] [id number] In 1 week Discharge took more than 35 minutes, to include final examination, discussion of admission, and preparation of prescriptions, instructions for ongoing care, follow up and dictation of summary. Signed: DARELL KOWALSKI MD 06/01/2018 9:59 AM Dictation software, ReCellular, used which may contain error for similar [...] be different fro m the original. [facility] Department of Respiratory [facility] Oxygen Evaluation (Evaluation is valid for 48 [...] may be different from the original. [facility] Service: NEPHROLOGY Dialysis/ Progress Note Dara Louise 23 y.o. [id number] female [facility] Day: LOS: [...] AV FISTULA; Surgeon: Rik Simon MD; Location: [facility] MAIN OR; Service: Vascula r; Laterality: Left; cephalic AV FISTULA REPAIR Left 03/07/2014 Procedure: AV FISTULA - GRAFT REPAIR/REVISION; Surgeon: Rik Simon MD; Location: [facility] IN OR; Service: Vascular; Laterality: Left; DECLOT GRAFT Left 03/07/2014 Procedure: GRAFT - DECLOT; Surgeon: Rik Simon MD; Location: [facility] MAIN OR; Service: Vas cular; Laterality: Left; DIALYSIS FISTULA CREATION N/A 04/08/2014 Procedure: DIALYSIS CATHETER - INSERTION; Surgeon: Rik Simon MD; Location: [facility] OR ; Service: Vascular; Laterality: N/A; tunneled catheter LAPAROSCOPIC PERITONEAL DIALYSIS CATHETER INSERTION x2 LAPAROSCOPIC PERITONEAL DIALYSIS CATHETER INSERTION Right 07/2013 current dialysis access MWF dialysis RENAL BIOPSY SUPERFICIALIZATION OF AV FISTULA Left 06/24/2014 Procedure: AV FISTULA - SUPERFICIALIZATION; Surgeon: Rik Simon MD; Location: [facility] OR; Service: Vascular; Laterality: [...] radiologist report and is used for image Adometry By [employer] only Us Abdomen Limited Result Date: [...] 17. The mitral valve is normal. 18. Edzx-uw-wjritgrb eccentric mitral regurgitation i s present. 19. [...] mitral valve is normal. Mitral Kait ve: Aspl-jf-wqochtjr eccentric mitral regurgitation is present. Tricuspid Valve: [...] maxP.08 mmHg TR Vmax: 2.7 4 m/s Capacity Planning Manager: MOO Authenticated by: Robel Yusuf MD Report [...] 17. The mitral valve is normal. 18. Prcy-nf-agxvl ate eccentric mitral regurgitation is present. 19. [...] pleural spac e is punctured with an 8-Austrian thoracentesis catheter. Fluid is aspirated without complicat [...] earlier and charting completed later Dictation software, ReCellular, used which may contain error for similar [...] put on "an antibiotic" for pneumonia at [facility] ED. Was throwing up & could not [...] the prelim submitted orders, MWF No acute FIELD ATTENDANT indication ESTEFANY as indicated with HD Protein [...] may be different from pierre coleman. [facility] Service: Hospitalist Progress Note Pt: Dara Louise AGE/SEX: 23 y.o. female ROOM: 4441/4441-1 : 1995 PCP: TIEN NICHOLSON ADMIT DATE: 05/26/2018 TODAY'S DATE: 05/31/2018 Hospital Day/Hospital Course: LOS: [address] Belcher 23-year-old female with past medical history of end-stage renal disease on hemodialysis Mon day Monday, hypertension, anemia of chronic disease who went to [facility] with increasing shortness of breath found to have right pleural effusion who was transfer red to [facility] underwent right-sided diagnostic [...] Component Value Units Date/Time Culture, Body Fluid [[id number]] Collected: 05/26/18 1412 Specimen: Body Fluid from Pleural Fluid Updated: 05/30/18 0733 Specimen Description PLEURAL FLUID GRAM STAIN WBC'S SEEN GRAM STAIN NO ORGANISMS SEEN GRAM STAIN STAIN PERFORMED ON CYTOSPIN CULTURE NO GROWTH 4 DAYS Culture, Body Fluid [[id number]] Collected: 05/26/18 1513 Specimen: Other from Ascites Fluid Updated: 05/30/18 0732 Specimen Description ASCITES FLUID GRAM STAIN STAIN PERFORMED ON CYTOSPIN GRAM STAIN WBC'S SEEN GRAM STAIN NO EPITHELIAL CELLS SEEN GRAM STAIN NO ORGANISMS SEEN CULTURE NO GROWTH 4 DAYS Gram stain [[id number]] Collected: 05/29/18 1256 Specimen: Sputum from Thoracic Fluid Updated: 05/29/18 2339 Specimen Description THORACIC FLUID CULTURE 1+ WBC'S SEEN NO ORGANISMS SEEN Lactate dehydrogenase, body fluid [[id number]] Collected: 05/29/18 1256 Specimen: Body Fluid from Pleural, Right Updated: 05/29/18 1619 FLUID LDH 151 U/L Cholesterol, body fluid [[id number]] Collected: 05/29/18 1256 Specimen: Body Fluid from Pleural, Right Updated: 05/29/18 1619 FLUID CHOLESTEROL 56 mg/dL Sputum culture [[id number]] Collected: 05/27/182014 Specimen: Sputum from Sputum Updated: [...] 17. The mitral valve is normal. 18. Pxxi-nx-rvdwq ate eccentric mitral regurgitation is present. 19. [...] of chronic disease who went to [facility] with increasing shortness of breath due to acute congestive heart failure Acute systolic congestive heart failure with Pleural Effusion: Admitted with acute systolic congestive heart failure with bilateral pleural effusion stat us post thoracentesis 2. Her breathing has improved. She is talking to me appropriately. N ot in any kind of distress. administrative services specialist to initiate the discharge plan. [...] MD, FACP 05/31/2018 9:42 AM Dictation software, ReCellular, used which may contain error for similar sounding words even af ter review. Personal communication requested for any clarification. Portions of this chart may have been copied from previous notes for continuity of care purp Darell Segundo MD - 05/30/2018 9:09 AM PDTFormatting of this note may be different from pierre coleman. [facility] Service: Hospitalist Progress Note Pt: Dara Louise AGE/SEX: 23 y.o. female ROOM: [address] [place] [address] : 1995 PCP: TIEN NICHOLSON ADMIT DATE: 05/26/2018 TODAY'S DATE: 05/30/2018 Hospital Day/Hospital Course: LOS: [address] Belcher 23-year-old female with past medical history of end-stage renal disease on hemodialysis Mon day Monday, hypertension, anemia of chronic disease who went to [facility] with increasing shortness of breath found to have right pleural effusion who was transfer red to [facility] underwent right-sided diagnostic [...] Component Value Units Date/Time Culture, Body Fluid [[id number]] Collected: 05/26/18 1412 Specimen: Body Fluid from Pleural Fluid Updated: 05/30/18 0733 Specimen Description PLEURAL FLUID GRAM STAIN WBC'S SEEN GRAM STAIN NO ORGANISMS SEEN GRAM STAIN STAIN PERFORMED ON CYTOSPIN CULTURE NO GROWTH 4 DAYS Culture, Body Fluid [[id number]] Collected: 05/26/18 1513 Specimen: Other from Ascites Fluid Updated: 05/30/18 0732 Specimen Description ASCITES FLUID GRAM STAIN STAIN PERFORMED ON CYTOSPIN GRAM STAIN WBC'S SEEN GRAM STAIN NO EPITHELIAL CELLS SEEN GRAM STAIN NO ORGANISMS SEEN CULTURE NO GROWTH 4 DAYS Gram stain [[id number]] Collected: 05/29/18 1256 Specimen: Sputum from Thoracic Fluid Updated: 05/29/18 2339 Specimen Description THORACIC FLUID CULTURE 1+ WBC'S SEEN NO ORGANISMS SEEN Lactate dehydrogenase, body fluid [[id number]] Collected: 05/29/18 1256 Specimen: Body Fluid from Pleural, Right Updated: 05/29/18 1619 FLUID LDH 151 U/L Cholesterol, body fluid [[id number]] Collected: 05/29/18 1256 Specimen: Body Fluid from Pleural, Right Updated: 05/29/18 1619 FLUID CHOLESTEROL 56 mg/dL Sputum culture [[id number]] Collected: 05/27/182014 Specimen: Sputum from Sputum Updated: [...] 17. The mitral valve is normal. 18. Dijm-mv-gbirt ate eccentric mitral regurgitation is present. 19. [...] of chronic disease who went to [facility] with increasing shortness of [...] MD, FACP 05/30/2018 9:10 AM Dictation software, ReCellular, used which may contain error for similar sounding words even af ter review. Personal communication requested for any clarification. Portions of this chart may have been copied from previous notes for continuity of care purp Carolina Camarillo, DO - 05/29/2018 7:56 PM PDTFormatting of this note may be different from th e original. [facility] Service: Cardiology Progress Note Hospital Day: [...] Hospitalist Progress Note Dara Louise 23 y.o. [id number] [id number] female [facility] Day: LOS: 3 days Patient Summary: 23-year-old female with past medical history of end-stage renal dis ease on hemodialysis Monday, hypertension, anemia of chronic disease who we nt to [facility] with increasing shortness of breath found to have right pleural e ffusion who was transferred to [facility] underwent right-sided diagnostic [...] Value Units Date/Time Lactate dehydrogenase, body fluid [[id number]] Collected: 05/29/18 1256 Specimen: Body Fluid from Pleural, Right Updated: 05/29/18 1315 Cholesterol, body fluid [[id number]] Collected: 05/29/18 1256 Specimen: Body Fluid from Pleural, Right Updated: 05/29/18 1315 Gram stain [[id number]] Collected: 05/29/18 1256 Specimen: Sputum from OTHR-w source desc (F6) Updated: 05/29/18 1309 Sputum culture [[id number]] Collected: 05/27/182014 Specimen: Sputum from Sputum Updated: 05/29/18 0947 Specimen Description SPUTUM GRAM STAIN LESS THAN 10 WBCS/LPF GRAM STAIN LESS THAN 10 SEC/LPF GRAM STAIN NO ORGANISMS SEEN CULTURE 1+ NORMAL UPPER RESPIRATORY ALESSANDRO HIV 1/2 Ab reflex [[id number]] Collected: 05/28/18 1236 Specimen: Blood Updated: 05/29/18 0942 HIV1/HIV2 NON REACTIVE Protime-INR [[id number]] Collected: 05/29/18 0852 Specimen: Blood Updated: 05/29/1840 INR 1.5 APTT [[id number]] Collected: 05/29/18 0852 Specimen: Blood Updated: 05/29/1840 APTT 29 seconds Culture, Body Fluid [[id number]] Collected: 05/26/18 1513 Specimen: Other from Ascites Fluid Updated: 05/29/18919 Specimen Description ASCITES FLUID GRAM STAIN STAIN PERFORMED ON CYTOSPIN GRAM STAIN WBC'S SEEN GRAM STAIN NO EPITHELIAL CELLS SEEN GRAM STAIN NO ORGANISMS SEEN CULTURE NO GROWTH 3 DAYS Culture, Body Fluid [[id number]] Collected: 05/26/18 1412 Specimen: Body Fluid from Pleural Fluid Updated: 05/29/18917 Specimen Description PLEURAL FLUID CULTURE NO GROWTH 3 DAYS Comprehensive metabolic panel [[id number]] (Abnormal) Collected: 05/29/18456 Specimen: Blood Updated: 05/29/18615 [...] mL/min/1.73m2 CBC W/Auto Diff (Reflex to Manual) [[id number]] (Abnormal) Collected: 05/29/18456 Specimen: Blood Updated: 05/29/18612 [...] 0.05 K/uL MORPHOLOGY 2+ hCG, serum, qualitative [[id number]] Collected: 05/28/18922 Specimen: Blood Updated: 05/28/18 1950 TEST,SERUM NEGATIVE C-reactive protein [[id number]] (Abnormal) Collected: 05/28/18922 Specimen: Blood Updated: 05/28/18 1941 CRP 5.1 (H) mg/dL Sedimentation rate, automated [[id number]] Collected: 05/28/18922 Specimen: Blood Updated: 05/28/18 1734 ESR 2 mm/Hr Hepatitis panel,acute [[id number]] Collected: 05/28/18 1236 Specimen: Blood Updated: 05/28/18 1650 HAV AB,IGM NON REACTIVE HEP B SURFACE AG NON REACTIVE ANTI HEP B CORE,IGM NON REACTIVE HEPATITIS C NON REACTIVE HEPATITIS INTERP No serologic evidence of HAV, HBV, or HCV infection. Troponin I [[id number]] Collected: 05/28/18922 Specimen: Blood Updated: 05/28/18 1437 TROPONIN I 0.034 ng/mL Troponin I [[id number]] Collected: 05/28/18 1359 Specimen: Blood Updated: 05/28/18 1437 TROPONIN I 0.037 ng/mL Renal function panel [[id number]] (Abnormal) Collected: 05/28/18 1209 Specimen: Blood from Blood Updated: 05/28/18 1302 SODIUM 141 mmol/L POTASSIUM 4.3 mmol/L CHLORIDE 101 mmol/L CO2 29 mmol/L ANION GAP AGAP 15 mmol/L GLUCOSE 78 mg/dL BUN 43 (H) mg/dL CREATININE 7.97 (H) mg/dL CALCIUM 9.1 mg/dL Albumin 3.6 g/dL PHOSPHORUS 6.3 (H) mg/dL EGFR 6 (L) mL/min/1.73m2 CBC W/Auto Diff (Reflex to Manual) [[id number]] (Abnormal) Collected: 05/28/18922 Specimen: Blood Updated: 05/28/18 [...] 0.05 K/uL MORPHOLOGY 1+ Comprehensive metabolic panel [[id number]] (Abnormal) Collected: 05/28/18922 Specimen: Blood Updated: 05/28/18 [...] (H) U/L EGFR 6 (L) mL/min/1.73m2 TSH [[id number]] Collected: 05/28/18922 Specimen: Blood Updated: 05/28/18 1210 TSH 1.270 uIU/mL Pathologist consult [[id number]] Collected: 05/26/18 1412 Updated: 05/28/18 1113 Pathologist Consult -- Hepatitis panel, chronic [[id number]] (Abnormal) Collected: 05/27/18 1758 Updated: 05/27/18 2031 Hep A Total Ab REACTIVE (A) HEP B SURFACE AG NON REACTIVE HEP B CORE AB,TOTAL NON REACTIVE HEP B SURFACE ANTIBODY 3.27 (H) IV HEPATITIS C NON REACTIVE HEPATITIS INTERP Current or past HAV infection. Past HBV infection or vaccination. No ser ologic evidence of HCV infection. CBC w/auto diff (reflex to manual) [[id number]] (Abnormal) Collected: 05/27/18 0425 Specimen: Blood Updated: [...] K/uL MORPHOLOGY 2+ Platelet Estimate DECREASED Phosphorus [[id number]] (Abnormal) Collected: 05/27/18424 Specimen: Blood Updated: 05/27/18628 PHOSPHORUS 8.0 (H) mg/dL Basic Metabolic Panel [[id number]] (Abnormal) Collected: 05/27/18424 Specimen: Blood Updated: 05/27/18628 SODIUM 135 mmol/L POTASSIUM 5.9 (H) mmol/L CHLORIDE 96 (L) mmol/L CO2 25 mmol/L ANION GAP AGAP 20 mmol/L GLUCOSE 74 mg/dL BUN 51 (H) mg/dL CREATININE 9.2 (H) mg/dL BUN/CREAT 6 CALCIUM 9.4 mg/dL EGFR 5 (L) mL/min/1.73m2 Magnesium [[id number]] (Abnormal) Collected: 05/27/18424 Specimen: Blood Updated: 05/27/1829 MAGNESIUM 2.7 (H) mg/dL Brain natriuretic peptide [[id number]] (Abnormal) Collected: 05/27/18424 Specimen: Blood Updated: 05/27/18 0546 BRAIN NATRIURETIC PEPTIDE 1,153.92 (H) pg/mL Respiratory Filmarray [[id number]] (Abnormal) Collected: 05/26/181805 Specimen: Nasopharynx/Oropharynx Updated: 05/26/182141 [...] performed by Molecular Methodology MRSA by PCR [[id number]] Collected: 05/26/18 180 Specimen: Nasopharyngeal from Nares(Nose) Updated: 05/26/182025 SOURCE NARES(NOSE) MRSA PCR NEGATIVE Procalcitonin [[id number]] (Abnormal) Collected: 05/26/18 1727 Updated: 05/26/18 1839 PROCALCITONIN 0.76 (H) ng/mL Albumin, Body Fluid [[id number]] Collected: 05/26/181411 Specimen: Body Fluid from Lung, Right Lower Lobe Updated: 05/26/181728 FLUID ALBUMIN 2.3 g/dL Total Protein, Body Fluid [[id number]] Collected: 05/26/181411 Specimen: Body Fluid from Lung, Right Lower Lobe Updated: 05/26/181728 FLUID TOTAL PROTEIN 4.2 g/dL FLUID TP SOURCE PLEURAL FLUID Cell count, Body Fluid [[id number]] Collected: 05/26/181411 Specimen: Body Fluid from Lung, Right Lower Lobe Updated: 05/26/18 170 FLUID TYPE PLEURAL FLUID COLOR SAMMIE APPEARANCE CLOUDY RBC'S 3,000 /mm3 TOTAL NUCLEATED CELLS 253 /mm3 NEUTROPHILS 22 % LYMPHOCYTES 8 % MONOCYTES/MACROPHAGES 65 % Mesothelial Cells 5 % CELLS COUNTED 100 pH, Body Fluid [[id number]] Collected: 05/26/181411 Specimen: Body Fluid from Lung, [...] 17. The mitral valve is normal. 18. Jcvu-to-syccqxmq eccentric mitral regurgitation i s present. 19. [...] mitral valve is normal. Mitral Kait ve: Tkpu-xk-znzaldai eccentric mitral regurgitation is present. Tricuspid Valve: [...] maxP.08 mmHg TR Vmax: 2.7 4 m/s Capacity Planning Manager: MOO Authenticated by: Robel Yusuf MD Report [...] 17. The mitral valve is normal. 18. Gowc-ci-ouyuo ate eccentric mitral regurgitation is present. 19. [...] put on "an antibiotic" for pneumonia at [facility] ED. Was throwing up & could not [...] the prelim submitted orders, MWF No acute FIELD ATTENDANT indication ESTEFANY as indicated with HD Protein [...] Hospitalist Progress Note Dara Louise 23 y.o. [id number] female [facility] Day: LOS: 2 days Patient Summary: 23-year-old female with past medical history of end-stage renal dis ease on hemodialysis Monday, hypertension, anemia of chronic disease who we nt to [facility] with increasing shortness of breath found to have right pleural e ffusion who was transferred to [facility] underwent right-sided diagnostic [...] Component Value Units Date/Time Culture, Body Fluid [[id number]] Collected: 05/26/18 1513 Specimen: Other from Ascites Fluid Updated: 05/28/18 1225 Specimen Description ASCITES FLUID GRAM STAIN STAIN PERFORMED ON CYTOSPIN GRAM STAIN WBC'S SEEN GRAM STAIN NO EPITHELIAL CELLS SEEN GRAM STAIN NO ORGANISMS SEEN CULTURE NO GROWTH 2 DAYS Culture, Body Fluid [[id number]] Collected: 05/26/18 1412 Specimen: Body Fluid from Pleural Fluid Updated: 05/28/18 1223 Specimen Description PLEURAL FLUID CULTURE NO GROWTH 2 DAYS Comprehensive metabolic panel [[id number]] (Abnormal) Collected: 05/28/18 0923 Specimen: Blood Updated: [...] (H) U/L EGFR 6 (L) mL/min/1.73m2 TSH [[id number]] Collected: 05/28/18922 Specimen: Blood Updated: 05/28/18 1210 TSH 1.270 uIU/mL Pathologist consult [[id number]] Collected: 05/26/18 1412 Updated: 05/28/18 1113 Pathologist Consult -- Troponin I [[id number]] Collected: 05/28/18922 Specimen: Blood Updated: 05/28/18 1055 CBC W/Auto Diff (Reflex to Manual) [[id number]] Collected: 05/28/18922 Specimen: Blood Updated: 05/28/18938 Sputum culture [[id number]] Collected: 05/27/182014 Specimen: Sputum from Sputum Updated: 05/28/18902 Specimen Description SPUTUM GRAM STAIN LESS THAN 10 WBCS/LPF GRAM STAIN LESS THAN 10 SEC/LPF GRAM STAIN NO ORGANISMS SEEN CULTURE CULTURE IN PROGRESS Hepatitis panel, chronic [[id number]] (Abnormal) Collected: 05/27/181757 Updated: 05/27/182030 Hep A Total Ab REACTIVE (A) HEP B SURFACE AG NON REACTIVE HEP B CORE AB,TOTAL NON REACTIVE HEP B SURFACE ANTIBODY 3.27 (H) IV HEPATITIS C NON REACTIVE HEPATITIS INTERP Current or past HAV infection. Past HBV infection or vaccination. No ser ologic evidence of HCV infection. CBC w/auto diff (reflex to manual) [[id number]] (Abnormal) Collected: 05/27/18 0425 Specimen: Blood Updated: [...] K/uL MORPHOLOGY 2+ Platelet Estimate DECREASED Phosphorus [[id number]] (Abnormal) Collected: 05/27/18424 Specimen: Blood Updated: 05/27/18 0629 PHOSPHORUS 8.0 (H) mg/dL Basic Metabolic Panel [[id number]] (Abnormal) Collected: 05/27/18424 Specimen: Blood Updated: 05/27/18628 SODIUM 135 mmol/L POTASSIUM 5.9 (H) mmol/L CHLORIDE 96 (L) mmol/L CO2 25 mmol/L ANION GAP AGAP 20 mmol/L GLUCOSE 74 mg/dL BUN 51 (H) mg/dL CREATININE 9.2 (H) mg/dL BUN/CREAT 6 CALCIUM 9.4 mg/dL EGFR 5 (L) mL/min/1.73m2 Magnesium [[id number]] (Abnormal) Collected: 05/27/18424 Specimen: Blood Updated: 05/27/1829 MAGNESIUM 2.7 (H) mg/dL Brain natriuretic peptide [[id number]] (Abnormal) Collected: 05/27/18424 Specimen: Blood Updated: 05/27/18 0546 BRAIN NATRIURETIC PEPTIDE 1,153.92 (H) pg/mL Respiratory Filmarray [[id number]] (Abnormal) Collected: 05/26/181805 Specimen: Nasopharynx/Oropharynx Updated: 05/26/182141 [...] performed by Molecular Methodology MRSA by PCR [[id number]] Collected: 05/26/181805 Specimen: Nasopharyngeal from Nares(Nose) Updated: 05/26/182025 SOURCE NARES(NOSE) MRSA PCR NEGATIVE Procalcitonin [[id number]] (Abnormal) Collected: 05/26/18 172 Updated: 05/26/18 1839 PROCALCITONIN 0.76 (H) ng/mL Albumin, Body Fluid [[id number]] Collected: 05/26/18 141 Specimen: Body Fluid from Lung, Right Lower Lobe Updated: 05/26/181728 FLUID ALBUMIN 2.3 g/dL Total Protein, Body Fluid [[id number]] Collected: 05/26/181411 Specimen: Body Fluid from Lung, Right Lower Lobe Updated: 05/26/181728 FLUID TOTAL PROTEIN 4.2 g/dL FLUID TP SOURCE PLEURAL FLUID Cell count, Body Fluid [[id number]] Collected: 05/26/18 141 Specimen: Body Fluid from Lung, Right Lower Lobe Updated: 05/26/18 170 FLUID TYPE PLEURAL FLUID COLOR SAMMIE APPEARANCE CLOUDY RBC'S 3,000 /mm3 TOTAL NUCLEATED CELLS 253 /mm3 NEUTROPHILS 22 % LYMPHOCYTES 8 % MONOCYTES/MACROPHAGES 65 % Mesothelial Cells 5 % CELLS COUNTED 100 pH, Body Fluid [[id number]] Collected: 05/26/18 141 Specimen: Body Fluid from Lung, Right Lower Lobe Updated: 05/26/18 1508 FLUID PH 7.45 Procalcitonin [[id number]] (Abnormal) Collected: 05/26/18 1214 Updated: 05/26/18 1330 PROCALCITONIN 0.56 (H) ng/mL Cardiac Panel [[id number]] (Abnormal) Collected: 05/26/18 1214 Updated: 05/26/18 1312 [...] ng/mL CK-MB Index 2.7 Brain natriuretic peptide [[id number]] (Abnormal) Collected: 05/26/18 1214 Updated: 05/26/18 1254 [...] radiologist report and is used for image [employer] By [employer] only Echo Cardiac Adult Complete Result Date: [...] 17. The mitral valve is normal. 18. Gofo-yj-ywcgyezu eccentric mitral regurgitation i s present. 19. [...] mitral valve is normal. Mitral Kait ve: Hxee-it-xfwzhvco eccentric mitral regurgitation is present. Tricuspid Valve: [...] maxP.08 mmHg TR Vmax: 2.7 4 m/s Capacity Planning Manager: MOO Authenticated by: Robel Yusuf MD Report [...] 17. The mitral valve is normal. 18. Rfrc-cw-jejyq ate eccentric mitral regurgitation is present. 19. [...] Hospitalist Progress Note Dara Louise 23 y.o. [id number] female [facility] Day: LOS: 1 day Patient Summary: 23-year-old female with past medical history of end-stage renal dis ease on hemodialysis Monday, hypertension, anemia of chronic disease who we nt to [facility] with increasing shortness of breath found to have right pleural e ffusion who was transferred to [facility] underwent right-sided diagnostic [...] Date/Time CBC w/auto diff (reflex to manual) [[id number]] (Abnormal) Collected: 05/27/185 Specimen: Blood Updated: 05/27/18710 [...] K/uL MORPHOLOGY 2+ Platelet Estimate DECREASED Phosphorus [[id number]] (Abnormal) Collected: 05/27/18424 Specimen: Blood Updated: 05/27/18 0629 PHOSPHORUS 8.0 (H) mg/dL Basic Metabolic Panel [[id number]] (Abnormal) Collected: 05/27/18424 Specimen: Blood Updated: 05/27/18628 SODIUM 135 mmol/L POTASSIUM 5.9 (H) mmol/L CHLORIDE 96 (L) mmol/L CO2 25 mmol/L ANION GAP AGAP 20 mmol/L GLUCOSE 74 mg/dL BUN 51 (H) mg/dL CREATININE 9.2 (H) mg/dL BUN/CREAT 6 CALCIUM 9.4 mg/dL EGFR 5 (L) mL/min/1.73m2 Magnesium [[id number]] (Abnormal) Collected: 05/27/18424 Specimen: Blood Updated: 05/27/1829 MAGNESIUM 2.7 (H) mg/dL Brain natriuretic peptide [[id number]] (Abnormal) Collected: 05/27/18424 Specimen: Blood Updated: 05/27/1846 BRAIN NATRIURETIC PEPTIDE 1,153.92 (H) pg/mL Respiratory Filmarray [[id number]] (Abnormal) Collected: 05/26/181805 Specimen: Nasopharynx/Oropharynx Updated: 05/26/182141 [...] performed by Molecular Methodology MRSA by PCR [[id number]] Collected: 05/26/181805 Specimen: Nasopharyngeal from Nares(Nose) Updated: 05/26/182025 SOURCE NARES(NOSE) MRSA PCR NEGATIVE Procalcitonin [[id number]] (Abnormal) Collected: 05/26/18 1727 Updated: 05/26/18 1839 PROCALCITONIN 0.76 (H) ng/mL Culture, Body Fluid [[id number]] Collected: 05/26/18 141 Specimen: Body Fluid from Pleural Fluid Updated: 05/26/18 1811 Pathologist consult [[id number]] Collected: 05/26/18 141 Updated: 05/26/18 1742 Albumin, Body Fluid [[id number]] Collected: 05/26/18 141 Specimen: Body Fluid from Lung, Right Lower Lobe Updated: 05/26/18 172 FLUID ALBUMIN 2.3 g/dL Total Protein, Body Fluid [[id number]] Collected: 05/26/18 141 Specimen: Body Fluid from Lung, Right Lower Lobe Updated: 05/26/18 172 FLUID TOTAL PROTEIN 4.2 g/dL FLUID TP SOURCE PLEURAL FLUID Cell count, Body Fluid [[id number]] Collected: 05/26/18 141 Specimen: Body Fluid from Lung, Right Lower Lobe Updated: 05/26/18 1708 FLUID TYPE PLEURAL FLUID COLOR SAMMIE APPEARANCE CLOUDY RBC'S 3,000 /mm3 TOTAL NUCLEATED CELLS 253 /mm3 NEUTROPHILS 22 % LYMPHOCYTES 8 % MONOCYTES/MACROPHAGES 65 % Mesothelial Cells 5 % CELLS COUNTED 100 Culture, Body Fluid [[id number]] Collected: 05/26/18 1513 Specimen: Other from Ascites Fluid Updated: 05/26/18 1631 Specimen Description ASCITES FLUID GRAM STAIN STAIN PERFORMED ON CYTOSPIN GRAM STAIN WBC'S SEEN GRAM STAIN NO EPITHELIAL CELLS SEEN GRAM STAIN NO ORGANISMS SEEN CULTURE PENDING pH, Body Fluid [[id number]] Collected: 05/26/18 1412 Specimen: Body Fluid from Lung, Right Lower Lobe Updated: 05/26/18 1508 FLUID PH 7.45 Procalcitonin [[id number]] (Abnormal) Collected: 05/26/18 1214 Updated: 05/26/18 1330 PROCALCITONIN 0.56 (H) ng/mL Cardiac Panel [[id number]] (Abnormal) Collected: 05/26/18 1214 Updated: 05/26/18 1312 [...] ng/mL CK-MB Index 2.7 Brain natriuretic peptide [[id number]] (Abnormal) Collected: 05/26/18 1214 Updated: 05/26/18 1254 [...] radiologist report and is used for image [employer] only PROBLEM LIST Active Problems: ESRD on [...] heparin ANTHONY BELCHER MD 05/27/2018 Jae Gutierres, [facility] - 05/26/2018 6:05 PM PDTRenal Dosing [...] Álvarez | | | | | | [place] [address] | | | | | | [phone] | | | | | | | [...] | + +--------+ + + + | [facility] CARD PANEL W/O | STAT | 05/26/2018 [...] | | | | | [place] [address] | | | + + + + + + + | Specimen | + + | Blood | + + + + + + + | Performing | Address | City/State/Zipcode | Phone Number | | Organization | | | | + + + + + | [facility] | [address] | [place] [address] | [phone] | | LABORATORY | Blvd. | | [...] | | | | | at [facility], [address] | | | [address], | | | | | [place] [address] | | | | |Testing performed at L, [address], [place] [address] | | | | | | | | + + + + + + + | Specimen | + + | Blood | + + + + + + + | Performing | Address | City/State/Zipcode | Phone Number | | Organization | | | | + + + + + | [facility] | [address] | [place] [address] | [phone] | | LABORATORY | Blvd. | | [...] (L)Comment: GFR <60: | >60 mL/min/1.73m2 | [facility] | | | CHRONIC KIDNEY DISEASE, [...] [address] | | | | | [facility], | | | | | [place] [address] | | | + + + + + + + | Specimen | + + | Blood | + + + + + + + | Performing | Address | City/State/Zipcode | Phone Number | | Organization | | | | + + + + + | [facility] | [address] | [place] [address] | [phone] | | LABORATORY | Blvd. | | [...] | | | | | at [facility], [address] | | | | | [facility], | | | | | [place] [address] | | | | |Testing performed at [facility], [address] [place] [address] | | | | | | | | + + + + + + + | Specimen | + + | Blood | + + + + + + + | Performing | Address | City/State/Zipcode | Phone Number | | Organization | | | | + + + + + | [facility] | [address] | [place] [address] | [phone] | | LABORATORY | Blvd. | | [...] | | systolic CHF (congestive heart failure) ([facility]) Transaminitis | | | The patient [...] | | | antibiotic" for pneumonia at [facility]. Was throwing up & could not [...] 31 | 23 - 32 mmol/L | [facility] | | | | | LABORATORY | [...] 3.5 | 1.3 - 4.9 g/dL | [facility] | | | | | LABORATORY [...] | | | performed at [facility], [address] | | | | | [facility], | | | | | [place] [address] | | | + + + + + + + | Specimen | + + | Blood | + + + + + + + | Performing | Address | City/State/Zipcode | Phone Number | | Organization | | | | + + + + + | [facility] | [address] [place] [address] | [place] [address] | [phone] | | LABORATORY | kelly. | | [...] | | | | | at [facility], [address] | | | | | [facility], | | | | | [place] [address] | | | | |Testing performed at [facility], [address] [facility], [place] [address] | | | | | | | | + + + + + + + | Specimen | + + | Blood | + + + + + + + | Performing | Address | City/State/Zipcode | Phone Number | | Organization | | | | + + + + + | [facility] | [address] | [place] [address] | [phone] | | LABORATORY | Blvd. | | [...] + + + | [facility] | [address] | [place] [address] | | + + + + + Cholesterol, body fluid (05/29/2018 12:56 PM) + + + + + | Component | Value | Ref Range | Performed At | + + + + + | FLUID CHOLESTEROL | 56Comment: This is not a | mg/dL | [facility] | | | clay miner validated | | LABORATORY | | | sample type for this | | | | | method. No reference | | | | | ranges have been | | | | | established.Testing | | | | | performed at [facility], [address] | | | | | [facility], | | | | | [place] [address] | | | + + + + + + + | Specimen | + + | Body Fluid - | | Pleural, Right | + + + + + + + | Performing | Address | City/State/Zipcode | Phone Number | | Organization | | | | + + + + + | [facility] | [address] [place] [address] | [place] [address] | [phone] | | LABORATORY | Blvd. | | | + + + + + Lactate dehydrogenase, body fluid (05/29/2018 12:56 PM) + + + + + | Component | Value | Ref Range | Performed At | + + + + + | FLUID LDH | 151Comment: This is not | U/L | [facility] | | | a clay miner validated | | LABORATORY | | | sample type for this | | | | | method. No reference | | | | | ranges have been | | | | | established.Testing | | | | | performed at [facility], [address] | | | | | [facility], | | | | | [place] [address] | | | + + + + + + + | Specimen | + + | Body Fluid - | | Pleural, Right | + + + + + + + | Performing | Address | City/State/Zipcode | Phone Number | | Organization | | | | + + + + + | [facility] | [address] | [place] [address] | [phone] | | LABORATORY | [address] | | [...] + + + + | [facility] | [address] | [place] [address] | [phone] | | LABORATORY | Blvd. | | [...] | | space is punctured with an 8-Austrian thoracentesis catheter. Fluid is | | | [...] the pleural space is punctured with an 8-Austrian | | thoracentesis catheter. Fluid is aspirated [...] + + + | [facility] | [address] | [place] [address] | | + + + + + APTT (05/29/2018 8:52 AM) + + + + + | Component | Value | Ref Range | Performed At | + + + + + | APTT | 29Comment: Testing | 23 - 32 seconds | [facility] | | | performed at [facility];[address] | | | | | [address];[place] | | | | | [address] | | | + + + + + + + | Specimen | + + | Blood | + + + + + + + | Performing | Address | City/State/Zipcode | Phone Number | | Organization | | | | + + + + + | [facility] | [address] | [place] [address] | | + + + + + Protime-INR (05/29/2018 8:52 AM) + + + + + | Component | Value | Ref Range | Performed At | + + + + + | INR | 1.5Comment: REFERENCE | | [facility] | | | RANGE:0.9 - | [...] | performed at [facility] | | | | | [address] [facility];[place], [place] | | | | | [address] | | | + + + + + + + | Specimen | + + | Blood | + + + + + + + | Performing | Address | City/State/Zipcode | Phone Number | | Organization | | | | + + + + + | [facility] | [address] | [place] [address] | | + + + + + [...] SPECIMEN | 65 - 99 mg/dL | [facility] | | | SLIGHTLY HEMOLYZED | | LABORATORY | + + + + + | BUN | 25 | 8 - 25 mg/dL | [facility] | | | | | LABORATORY | + + + + + | CREATININE | 6.0 (H)Comment: SPECIMEN | 0.50 - 1.00 mg/dL | [facility] | | | SLIGHTLY HEMOLYZED | | [...] SPECIMEN | 0.1 - 1.5 mg/dL | [facility] | | | SLIGHTLY HEMOLYZED | [...] [address] | | | | | [facility], | | | | | [place] [address] | | | + + + + + + + | Specimen | + + | Blood | + + + + + + + | Performing | Address | City/State/Zipcode | Phone Number | | Organization | | | | + + + + + | [facility] | [address] | [place] [address] | [phone] | | LABORATORY | Blvd. | | [...] [address], | | | | | [place] [address] | | | | |Testing performed at [facility], [address] [facility], [place] [address] | | | | | | | | + + + + + + + | Specimen | + + | Blood | + + + + + + + | Performing | Address | City/State/Zipcode | Phone Number | | Organization | | | | + + + + + | [facility] | [address] | [place] [address] | [phone] | | LABORATORY | [address] | | [...] [facility] | [address] | [place] [address] | | + + + + + Troponin I (05/28/2018 1:59 PM) + + + + + | Component | Value | Ref Range | Performed At | + + + + + | TROPONIN I | 0.037Comment: 0.04 | 0.00 - 0.04 ng/mL | [facility] | | | ng/mL or | [...] performed at | | | | | [facility];[address] | | | | | [facility];[place] [address] | | | + + + + + + + | Specimen | + + | Blood | + + + + + + + | Performing | Address | City/State/Zipcode | Phone Number | | Organization | | | | + + + + + | [facility] | [address] | [place] [address] | | + + + + + [...] | | | performed at [facility], [address] | | | | | [facility], | | | | | [place] [address] | | | + + + + + + + | Specimen | + + | Blood | + + + + + + + | Performing | Address | City/State/Zipcode | Phone Number | | Organization | | | | + + + + + | [facility] | [address] | [place] [address] | [phone] | | LABORATORY | Blvd. | | [...] at | | | | | [facility], [address] [place] [address] | | | | | [place] | | | | | [address] | | | + + + + + + + | Specimen | + + | Blood | + + + + + + + | Performing | Address | City/State/Zipcode | Phone Number | | Organization | | | | + + + + + | [facility] | [address] | [place] [address] | [phone] | | LABORATORY | Blvd. | | [...] (L)Comment: GFR <60: | >60 mL/min/1.73m2 | [facility] | | | CHRONIC KIDNEY DISEASE, [...] | performed at [facility];[address] | | | | | [facility];[place], [place] | | | | | [address] | | | + + + + + + + | Specimen | + + | Blood - Blood | + + + + + + + | Performing | Address | City/State/Zipcode | Phone Number | | Organization | | | | + + + + + | [facility] | [address] | [place] [address] | | + + + + + EK STANDARD 12 LEAD (05/28/2018 11:58 AM) + + + + + | Component | Value | Ref Range | Performed At | + + + + + | Ventricular Rate | 75 | BPM | [facility] | + + + + + | Atrial Rate | 75 | BPM | [facility] | + + + + + | P-R Interval | 182 | ms | [facility] | + + + + + [...] + + + + | Calculated P [place] | 24 | degrees | [facility] | + + + + + | Calculated R [place] | 24 | degrees | [facility] E[facility] | + + + + + | Calculated T [place] | 103 | degrees | [facility] EKG | + + + + + | Diagnosis | Normal sinus rhythmPoor | | [facility] | | | R - progressionAbnormal [...] | + + + + + | [facility] | [address] | [place] [address] | | + + + + + hCG, serum, qualitative (05/28/2018 9:23 AM) + + + + + | Component | Value | Ref Range | Performed At | + + + + + | TEST,SERUM | NEGATIVEComment: Testing | NEGATIVE | [facility] | | | performed at [facility], [address] | | LABORATORY | | | [address], | | | | | [place] [address] | | | + + + + + + + | Specimen | + + | Blood | + + + + + + + | Performing | Address | City/State/Zipcode | Phone Number | | Organization | | | | + + + + + | [facility] | [address] [place] [address] | [place] [address] | [phone] | | LABORATORY | [address]vd. | | | + + + + + C-reactive protein (05/28/2018 9:23 AM) + + + + + | Component | Value | Ref Range | Performed At | + + + + + | CRP | 5.1 (H)Comment: Testing | <0.5 mg/dL | [facility] | | | performed at [facility], [address] | | LABORATORY | | | [facility], | | | | | [place] [address] | | | + + + + + + + | Specimen | + + | Blood | + + + + + + + | Performing | Address | City/State/Zipcode | Phone Number | | Organization | | | | + + + + + | [facility] | [address] | [place] [address] | [phone] | | LABORATORY | [address]vd. | | | + + + + + Sedimentation rate, automated (05/28/2018 9:23 AM) + + + + + | Component | Value | Ref Range | Performed At | + + + + + | ESR | 2Comment: Testing | 0 - 20 mm/Hr | [facility] | | | performed at [facility], [address] | | LABORATORY | | | [address], | | | | | [place] [address] | | | + + + + + + + | Specimen | + + | Blood | + + + + + + + | Performing | Address | City/State/Zipcode | Phone Number | | Organization | | | | + + + + + | [facility] | [address] | [place] [address] | [phone] | | LABORATORY | Blvd. | | | + + + + + TSH (05/28/2018 9:23 AM) + + + + + | Component | Value | Ref Range | Performed At | + + + + + | TSH | 1.270Comment: Testing | 0.450 - 5.100 uIU/mL | [facility] | | | performed at [facility], [address] | | LABORATORY | | | [address], | | | | | [place] [address] | | | + + + + + + + | Specimen | + + | Blood | + + + + + + + | Performing | Address | City/State/Zipcode | Phone Number | | Organization | | | | + + + + + | [facility] | [address] | [place] [address] | [phone] | | LABORATORY | Blvd. | | | + + + + + Troponin I (05/28/2018 9:23 AM) + + + + + | Component | Value | Ref Range | Performed At | + + + + + | TROPONIN I | 0.034Comment: 0.04 | 0.00 - 0.04 ng/mL | [facility] | | | ng/mL or | [...] performed at | | | | | [facility];[address] | | | [address];[place] [address] | | | + + + + + + + | Specimen | + + | Blood | + + + + + + + | Performing | Address | City/State/Zipcode | Phone Number | | Organization | | | | + + + + + | [facility] | [address] | [place] [address] | | + + + + + [...] [address] | | | | | [facility], | | | | | [place] [address] | | | + + + + + + + | Specimen | + + | Blood | + + + + + + + | Performing | Address | City/State/Zipcode | Phone Number | | Organization | | | | + + + + + | [facility] | [address] | [place] [address] | [phone] | | LABORATORY | Blvd. | | [...] | | | | | at [facility], [address] | | | | | [facility], | | | | | [place] [address] | | | | |Testing performed at [facility], [address] [place] [address] | | | | | | | | + + + + + + + | Specimen | + + | Blood | + + + + + + + | Performing | Address | City/State/Zipcode | Phone Number | | Organization | | | | + + + + + | [facility] | [address] | [place] [address] | [phone] | | LABORATORY | Blvd. | | | + + + + + Pathology cytology - fluid (05/28/2018 8:00 AM) + + | Specimen | + + | Body Fluid | + + + + + | Narrative | Performed At | + + + | ORDERING PHYSICIAN: Aneudy Hunter MD PATIENT NAME: Romero [facility] | | DARA LOUISE GENDER: [...] PERFORMING LABORATORY: Technical preparation was performed by [employer] | | | [facility], [address] [place] [address] | | | (Salesperson [employer]: Matt Claudio D.O.; CLIA#: [id number]). | | | Professional interpretation was performed by [employer] | | | [address] [address] | | | (Salesperson [employer]: Daniel Larson M.D.; CLIA#: [id number]).6 | | | Diagnostician: Marie BROOKS ([facility]) Electrical Instrument Maker | | | Diagnostician: Anahy Da Silva [...] | [facility] | [address] | [place] [address] | [phone] | | LABORATORY | Blvd. | | [...] at | | | | | [facility], [address] [place] [address] | | | | | [facility], [place], [place] | | | | | [address] | | | + + + + + + + + + + | Performing | Address | City/State/Zipcode | Phone Number | | Organization | | | | + + + + + | [facility] | [address] | [place] [address] | [phone] | | LABORATORY | [address]vd. | | [...] rhythm. 2. A 2-dimensional transthoracic echocardiogram | [facility] | | with m-mode, spectral and [...] valve is normal. 18. | | | Zyof-fr-vzjxrxfq eccentric mitral regurgitation is present. 19. | [...] DARA LOUISE Date of : 1995 | [facility] | | Performing Physician: Robel [...] valve is normal. 18. | | | Gpbz-of-gjxbeqyg eccentric mitral regurgitation is present. 19. | [...] is | | | normal. Mitral Valve: Ybkc-rx-nrxkgzya eccentric mitral | | | regurgitation is [...] TR Vmax: 2.74 m/s | | | Capacity Planning Manager: MOO Authenticated by: J. Sudhakar Madelin MD Report | | | Date/Time: 05-27-2018 13:59:57 | | + + + + + | Procedure Note | + + | Sonido Steele In - 05/27/2018 2:00 PM PDT Patient Name: Anders LOUISE of | | : 1995Accession: [id number] Physician: Robel Yusuf | | INDICATIONS S [...] aortic stenosis.17. The mitral valve is normal.18. Uwyf-qf-kkqkyjdb | | eccentric mitral regurgitation is present.19. [...] | | arch are normal.26. No mass digthqtjkh28. No clot visualizedFINDINGS--------ECG rhythm: | | Sinus [...] The mitral valve is normal. Mitral Valve: Edzz-ml-xyosfgnh eccentric mitral | | regurgitation is present.Tricuspid [...] (A-L): 30.43 | | ml/m2LAAs A2C: 20.97 vn6HUSQU A-L A2C: 65.71 mlLALs A2C: 5.68 cmLAAs A4C: 19.94 | | gu2YSYSC A-L A4C: 60.20 mlLALs A4C: 5.60 cmTAPSE: 1.58 cmHR: 79.62 BPMAV maxPG: | | 6.06 mmHgAV meanP.71 mmHgAV Vmax: 1.23 m/Elizabeth Vmean: 0.92 m/Elizabeth VTI: 20.07 | | cmAVA Vmax: 1.74 cm2AVA (VTI): 1.93 ig5LWTC Vmax: 0.00 cm2/m2AVAI (VTI): 0.00 | | [...] The mitral valve is | | normal.18. Fiww-fp-vvsqaymr eccentric mitral regurgitation is present.19. Severe | [...] and aortic arch are normal.26. No mass ibnkdsepfl78. No clot visualized | |LVIDd: 4.99 cm [...] |TR Vmax: 2.74 m/s | | | |Capacity Planning Manager: MOO | |Authenticated by: Robel Yusuf MD [...] The mitral valve is normal. | |18. Uubd-on-qexlaruq eccentric mitral regurgitation is present. | |19. [...] + + + + + | [facility] | [address] | [place] [address] | | + + + + + XR chest 2 view (05/27/2018 11:02 AM) + + + | Impressions | Performed At | + + + | 1. Large right-sided pleural effusion is causing near complete | [facility] | | atelectasis of the entire right [...] | + + + + + | [facility] | [address] | [place] [address] | | + + + + + Brain natriuretic peptide (05/27/2018 4:25 AM) + + + + + | Component | Value | Ref Range | Performed At | + + + + + | BRAIN NATRIURETIC | 1,153.92 (H)Comment: | 0 - 100 pg/mL | [facility] | | PEPTIDE | Testing performed at | | | | | [facility];[address] | | | | [address];[place] [address] | | | + + + + + + + | Specimen | + + | Blood | + + + + + + + | Performing | Address | City/State/Zipcode | Phone Number | | Organization | | | | + + + + + | [facility] | [address] | [place] [address] | | + + + + + Phosphorus (05/27/2018 4:25 AM) + + + + + | Component | Value | Ref Range | Performed At | + + + + + | PHOSPHORUS | 8.0 (H)Comment: Testing | 2.3 - 4.8 mg/dL | [facility] | | | performed at [facility], [address] | | LABORATORY | | | [address], | | | | | [place] [address] | | | + + + + + + + | Specimen | + + | Blood | + + + + + + + | Performing | Address | City/State/Zipcode | Phone Number | | Organization | | | | + + + + + | [facility] | [email or web address] | [place] [address] | [phone] | | LABORATORY | [address] | | | + + + + + Magnesium (05/27/2018 4:25 AM) + + + + + | Component | Value | Ref Range | Performed At | + + + + + | MAGNESIUM | 2.7 (H)Comment: Testing | 1.7 - 2.4 mg/dL | [facility] | | | performed at [facility], [address] | | LABORATORY | | | [facility], | | | | | [place] [address] | | | + + + + + + + | Specimen | + + | Blood | + + + + + + + | Performing | Address | City/State/Zipcode | Phone Number | | Organization | | | | + + + + + | [facility] | [address] [facility] [address] [facility] | [place] [address] | [phone] | | LABORATORY | [address] | | [...] (H) | 8 - 25 mg/dL | [facility] | | | | | LABORATORY [...] 9.4 | 8.5 - 10.5 mg/dL | [facility] | | | | | LABORATORY | + + + + + | EGFR | 5 (L)Comment: GFR <60: | >60 mL/min/1.73m2 | [facility] | | | CHRONIC KIDNEY DISEASE, [...] [address] | | | | [facility], | | | | | [place] [address] | | | + + + + + + + | Specimen | + + | Blood | + + + + + + + | Performing | Address | City/State/Zipcode | Phone Number | | Organization | | | | + + + + + | [facility] | [address] | [place] [address] | [phone] | | LABORATORY | Blvd. | | | + + + + + CBC w/auto diff (reflex to manual) (05/27/2018 4:25 AM) + + + + + | Component | Value | Ref Range | Performed At | + + + + + | WBC | 6.62 | 3.80 - 11.00 K/uL | [facility] | + + + + + | RBC | 3.48 (L) | 3.70 - 5.10 M/uL | [facility] | + + + + + | HGB | 12.5 | 11.3 - 15.5 g/dL | [facility] | + + + + + [...] | Platelet Estimate | DECREASEDComment: | | [facility] | | | Testing performed at | | | | | [facility];[address] | | | | [address];[place] [address] | | | + + + + + + + | Specimen | + + | Blood | + + + + + + + | Performing | Address | City/State/Zipcode | Phone Number | | Organization | | | | + + + + + | [facility] | [address] | [place] [address] | | + + + + + MRSA by PCR (05/26/2018 6:06 PM) + + + + + | Component | Value | Ref Range | Performed At | + + + + + | SOURCE | NARES(NOSE) | | [facility] | + + + + + | MRSA PCR | NEGATIVEComment: Testing | NEGATIVE | [facility] | | | performed at [facility];[address] | | | | | [address];[place], [place] | | | | | [address] | | | + + + + + + + | Specimen | + + | Nasopharyngeal - | | Nares(Nose) | + + + + + + + | Performing | Address | City/State/Zipcode | Phone Number | | Organization | | | | + + + + + | [facility] | [address] | [place] [address] | | + + + + + [...] at | | | | | [facility], [address] | | | | | [place] | | | | | [address] | | | + + + + + + + | Specimen | + + | Nasopharynx/Orophary | | nx | + + + + + + + | Performing | Address | City/State/Zipcode | Phone Number | | Organization | | | | + + + + + | [facility] | [address] | [place] [address] | [phone] | | LABORATORY | Blvd[address] | | | + + + + + PROCALCITONIN (05/26/2018 5:27 PM) + + + + + | Component | Value | Ref Range | Performed At | + + + + + | PROCALCITONIN | 0.76 (H)Comment: | <0.5 ng/mL | [facility] | | | INTERPRETIVE | | [...] performed | | | | | at [facility];[address] [place] [address] | | | | | [facility];[place] [address] | | | + + + + + + + + + + | Performing | Address | City/State/Zipcode | Phone Number | | Organization | | | | + + + + + | [facility] | [address] | [place] [address] | | + + + + + [...] + + + | [facility] | [address] | [place] [address] | | + + + + + [...] + + + | [facility] | [address] | [place] [address] | | + + + + + [...] STAIN | STAIN PERFORMED ON | | [facility] | | | CYTOSPIN | | [...] + + + + | [facility] | [address] | [place] [address] | [phone] | | LABORATORY | [address] | | | + + + + + | [facility] | [address] | [place] [address] | | + + + + + Pathologist consult (05/26/2018 2:12 PM) + + + + + | Component | Value | Ref Range | Performed At | + + + + + | Pathologist Consult | Comment: Review of | | [facility] | | | pleural fluid collected [...] performed | | | | | at [facility];[address] | | | | | [address];[place] [address] | | | + + + + + + + + + + | Performing | Address | City/State/Zipcode | Phone Number | | Organization | | | | + + + + + | [facility] | [address] | [place] [address] | | + + + + + Total Protein, Body Fluid (05/26/2018 2:12 PM) + + + + + | Component | Value | Ref Range | Performed At | + + + + + | FLUID TOTAL PROTEIN | 4.2Comment: This is not | g/dL | [facility] | | | a clay miner validated | | LABORATORY | | | sample type for this | | | | | method. No reference | | | | | ranges have been | | | | | established.Testing | | | | | performed at [facility], [address] | | | | | [facility], | | | | | [place] [address] | | | + + + + + | FLUID TP SOURCE | PLEURAL FLUIDComment: | | [facility] | | | Testing performed at | | | | | [facility];[address];[place] [address] | | | + + + + + + + | Specimen | + + | Body Fluid - Lung, | | Right Lower Lobe | + + + + + + + | Performing | Address | City/State/Zipcode | Phone Number | | Organization | | | | + + + + + | [facility] | [address] | [place] [address] | | + + + + + | [facility] | [address] | [place] [address] | [phone] | | LABORATORY | Blvd. | | | + + + + + Albumin, Body Fluid (05/26/2018 2:12 PM) + + + + + | Component | Value | Ref Range | Performed At | + + + + + | FLUID ALBUMIN | 2.3Comment: This is not | g/dL | [facility] | | | a clay miner validated | | LABORATORY | | | sample type for this | | | | | method. No reference | | | | | ranges have been | | | | | established.Testing | | | | | performed at [facility], [address] | | | | | [facility], | | | | | [place] [address] | | | + + + + + + + | Specimen | + + | Body Fluid - Lung, | | Right Lower Lobe | + + + + + + + | Performing | Address | City/State/Zipcode | Phone Number | | Organization | | | | + + + + + | [facility] | [address] | [place] [address] | [phone] | | LABORATORY | [address]vd[address] | | | + + + + + pH, Body Fluid (05/26/2018 2:12 PM) + + + + + | Component | Value | Ref Range | Performed At | + + + + + | FLUID PH | 7.45Comment: Testing | | [facility] | | | performed at [facility];[address] | | | | [address];[place] | | | | | [address] | | | + + + + + + + | Specimen | + + | Body Fluid - Lung, | | Right Lower Lobe | + + + + + + + | Performing | Address | City/State/Zipcode | Phone Number | | Organization | | | | + + + + + | [facility] | [address] | [place] [address] | | + + + + + [...] | [address] | [place] [address] | [phone] | | LABORATORY | [address]vd[address] | | | + + + + + Cell count, Body Fluid (05/26/2018 2:12 PM) + + + + + | Component | Value | Ref Range | Performed At | + + + + + | FLUID TYPE | PLEURAL FLUID | | [facility] | + + + + + | COLOR | SAMMIE | | [facility] | + + + + + | APPEARANCE | CLOUDY | | [facility] | + + + + + | RBC'S | 3,000Comment: CORRECTED | /mm3 | [facility] | | | RESULTS CALLED TO | | | | | ELSA IN ED AT 1705 | | | | | BY LGJCORRECTED ON 05/26 | | | | | AT 1702: PREVIOUSLY | | | | | REPORTED <[phone] | | | + + + + + | TOTAL NUCLEATED | 253Comment: CORRECTED | /mm3 | [facility] | | CELLS | RESULTS CALLED TO | | | | | ELSA IN ED AT 1705 | | | | | BY LGJCORRECTED ON 05/26 | | | | | AT 1702: PREVIOUSLY | | | | | REPORTED 374 | | | + + + + + | NEUTROPHILS | 22 | % | [facility] | + + + + + | LYMPHOCYTES | 8 | % | [facility] | + + + + + | MONOCYTES/MACROPHAGE | 65 | % | [facility] | | S | | | | + + + + + | Mesothelial Cells | 5 | % | [facility] | + + + + + | CELLS COUNTED | 100Comment: Testing | | [facility] | | | performed at [facility];[address] | | | | | [address];[place] | | | | | [address] | | | + + + + + + + | Specimen | + + | Body Fluid - Lung, | | Right Lower Lobe | + + + + + + + | Performing | Address | City/State/Zipcode | Phone Number | | Organization | | | | + + + + + | [facility] | [address] | [place] [address] | | + + + + + PROCALCITONIN (05/26/2018 12:14 PM) + + + + + | Component | Value | Ref Range | Performed At | + + + + + | PROCALCITONIN | 0.56 (H)Comment: | <0.5 ng/mL | [facility] | | | INTERPRETIVE | | [...] performed | | | | | at [facility];[address] [place] [address] | | | | | [facility];[place] [address] | | | + + + + + + + + + + | Performing | Address | City/State/Zipcode | Phone Number | | Organization | | | | + + + + + | [facility] | [address] | [place] [address] | | + + + + + Brain natriuretic peptide (05/26/2018 12:14 PM) + + + + + | Component | Value | Ref Range | Performed At | + + + + + | BRAIN NATRIURETIC | 1,728.24 (H)Comment: | 0 - 100 pg/mL | [facility] | | PEPTIDE | Testing performed at | | | | | [facility];[address] | | | | [address];[place] [address] | | | + + + + + + + + + + | Performing | Address | City/State/Zipcode | Phone Number | | Organization | | | | + + + + + | [facility] | [address] | [place] [address] | | + + + + + Cardiac Panel (05/26/2018 12:14 PM) + + + + + | Component | Value | Ref Range | Performed At | + + + + + | WBC | 5.73 | 3.80 - 11.00 K/uL | [facility] | + + + + + | RBC | 3.32 (L) | 3.70 - 5.10 M/uL | [facility] | + + + + + | HGB | 12.1 | 11.3 - 15.5 g/dL | [facility] | + + + + + | HCT | 36.1 | 34.0 - 46.0 % | [facility] | + + + + + [...] 0.06 | 0.00 - 0.50 K/uL | [facility] | + + + + + | BASOPHILS ABS | 0.06 | 0.00 - 0.10 K/uL | [facility] | + + + + + | MORPHOLOGY | 2+Comment: MACRO | | [facility] | + + + + + [...] (H) | 35 - 115 U/L | [facility] | + + + + + | AST | 82 (H) | 10 - 45 U/L | [facility] | + + + + + | ALT | 64 | 10 - 65 U/L | [facility] | + + + + + | EGFR | 6 (L)Comment: GFR <60: | >60 mL/min/1.73m2 | [facility] | | | CHRONIC KIDNEY DISEASE, [...] the | | | | | MDRD NJMS traceable | | | | | equation. | | | + + + + + | CPK | 291 (H) | 30 - 240 U/L | [facility] | + + + + + | INR | 1.6Comment: REFERENCE | | [facility] | | | RANGE:0.9 - | [...] 29 | 23 - 32 seconds | [facility] | + + + + + | MMB | 7.8 (H) | 0.5 - 3.6 ng/mL | [facility] | + + + + + | CK-MB Index | 2.7Comment: CK INDEX | | [facility] | | | INTERPRETATION: | | [...] [facility];[address] | | | | | [address];[place] | | | | | [address] | | | + + + + + + + + + + | Performing | Address | City/State/Zipcode | Phone Number | | Organization | | | | + + + + + | [facility] | [address] | [place] [address] | | + + + + + [...] space: 4th Puncture | | | method: [id number] catheter Ultrasound guidance: yes | | | [...] | Date/Time: 05/26/2018 1:23 PM Performed by: ANEDUY HUNTER | | | Authorized by: ANEUDY HUNTER Consent: Consent | | | obtained: Verbal and written Consent given by: Patient | | | Risks discussed: Bleeding, bowel perforation, infection and | | | pain [place] protocol: Imaging studies available: yes | | [...] Performed At | + + + | [id number] Criteria Met 2 in 2 | ED [...] Count (12 mo.) Facility Visits Low Acuity [facility] | | | [facility] 1 0 [facility] 5 0 Total 6 0 | | | Note: Visits indicate total known visits. Medicaid Low Acuity Dx | | | are the number of primary diagnoses on the Medicaid's Low Acuity dx | | | list. Recent Emergency Department Visit Summary Date Facility | | | City State Type Diagnoses or Chief Complaint May 26, 2018 [facility] | | | [place] Emergency Chest pain, unspecified | | | May 26, 2018 [facility] [place] Emergency Chief | | | Complaint: FLU SYMPTOMS May 25, 2018 [facility] [place] | | | Emergency Chief Complaint: SOB/COUGH May 10, [address] [facility] [address] | | | [place] [...] | | | disease Feb 14, 2018 [facility] [place] Emergency | | | Functional dyspepsia Other ascites Epigastric pain | | | Allergy status to narcotic agent status Radiographic dye | | | allergy status Nicotine dependence, unspecified, uncomplicated | | | Other group home (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 Sep 16, 2017 [facility] | | | 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 Any care recommendations [...] | | completeness of information provided. 2019 [employer] | | | [employer]. - www.[employer] | | + + + + + | Procedure Note | + + | Interface, Lab - 05/26/2018 12:00 PM PDT Formatting of this note may be different | | from the original.[id number] [id number] Met 2 in 2Security and | | SafetyNo recent Security Events currently on fileED Care GuidelinesThere are currently | | no ED Care Guidelines for this patient. Please check your facility's medical records | | system.Prescription Drug Report (12 Mo.)PDMP query found no report.E.D. Visit Count (12 | | mo.)Facility Visits Low Acuity [facility] 1 0 [facility] | | Hospital 5 0 Total 6 0 Note: Visits indicate total known visits. Medicaid Low Acuity Dx | | are the number of primary diagnoses on the Medicaid's Low Acuity dx list. Recent | | Emergency Department Visit SummaryDate Facility City State Type Diagnoses or Chief | | Complaint May 26, 2018 [facility] [place] Emergency Chest pain, | | unspecified May 26, 2018 [facility] [place] Emergency Chief Complaint: FLU | | SYMPTOMS May 25, 2018 [facility] [place] Emergency Chief Complaint: | | SOB/COUGH May 10, 2018 [facility] 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 Any [...] or completeness of information | | provided.2019 [employer]. - www.[employer] | | Hypertensive heart and chronic kidney disease without heart failure, with stage 5 chroni c kidney disease, or end stage renal disease | | | |Feb 14, 2018 [facility] 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 Emergency | | Chronic kidney disease, unspecified | | Dependence on renal dialysis | | Pain, unspecified | | Allergy status to narcotic agent status | | Nicotine dependence, unspecified, uncomplicated | | Other group home (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 | | Elevated [...] |This patient has registered at the [facility] Emergency Department | |For more information visit: [email or web address] | |andnbsp PLEASE NOTE: | | 1. [...] of information provided. | | | |2019 [employer]. - www.[employer] | + + + +---------+ + + [...] [facility] | [address] | [place] [address] | | + + + + + [...] 10 mLs | | | | 0.5% -1:[id number] injection 10 mL | Other | 9 [...] PDT | | | | | Dialysis, [place] 05/27/18 at 1700, | | | | [...] PDT | | | | | Dialysis, [facility] 05/28/18 at 1230, | | | | [...]
--- OUTSIDE RECORDS SUMMARY | ~2018-06-19 | XMS | Encounter Summary ---
[...] + + + | Author | [facility] [employer] | + + + | Organization [...] Team Providers + +------+ + | Care Clipper Operator Name | Role | Phone | + +------+ + | Jonathan Alonso MD | PCP | | + +------+ + Encounter Details +--------+ + + + + | Date | Type | Department | Care Team | Description | +--------+ + + + + | 06/12/ | Telephone | [facility] [place] | Carolina Mahmood DO | | | 2018 | | Cardiology [place] | [address] | | | | | [address] | [place], [place] | | | | | [place], [place] | [address] | | | | | [address] | | | | | | [phone] | | | +--------+ + + + [...] | | | | | [place] [address] | | | | | | [phone] | | | | | | | | +--------+---------+ + + + as of this encounter Visit Diagnoses Not on filein this encounter"
--- OUTSIDE RECORDS SUMMARY | ~2018-06-19 | XMS | Encounter Summary ---
Demographics + + + | Address | [address] | | | [place] [address] | + + + | Home Phone [...] | Author | [facility] | | | and Josephana | + + + | Organization | [facility] [...] Team Providers + +------+ + | Care Naturopath Name | Role | Phone | + [...] | | KIDNEY TRANSPLANT | [address], | | | | | [address] [facility] [address] | | | | | [address] [place] | [phone] | | | | | [address] | | | | | | [phone] | | | +--------+ + + + [...]
--- OUTSIDE RECORDS SUMMARY | ~2018-06-19 | XMS | Clinical Summary ---
Demographics + + + | Address | [address] | | | [place] [address] | + + + | Home Phone [...] + + + | Author | [employer] | + + + | Organization | [facility] | + + + | [...] Providers + +------+ + | Care Department Sales Manager Name | Role | Phone [...] CHF (congestive heart failure) ([facility]) | 05/28/2018 | + + + [...] | | | HF chronicity ([facility]) | | | | | | (Primary Dx); | | | | | | Severe tricuspid | | | | | | regurgitation; | | | | | | Pulmonary HTN ([facility]); | | | | | | ESRD (end stage | | | | | | renal disease) ([facility]) | +--------+ [...] | | | hemodialysis ([facility]); | | | | | | [...] | | | failure) ([facility]); | | | | | | Hypoalbuminemia; | | | | | | Anemia in ESRD | | | | | | (end-stage renal | | | | | | disease) ([facility]); ESRD | | | | | [...] | | | MRN: | | | [id number] | | | OM: | | | [...] | | by: Lakhwinder, | | | Flroian ALMEIDA | | | Sign | | [...] | went to | | | [facility] | | | with | | | increasing | | | shortness | | | of breath | | | found to | | | have right | | | pleural | | | effusion | | | who was | | | transferred | | | to [facility] | | | Hospital | | [...] | | Body Fluid | | | [[id number]] | | | Collected: | | | [...] | | Body Fluid | | | [[id number]] | | | Collected: | | | [...] | | | stain | | | [[id number]] | | | Collected: | | | [...] | | | fluid | | | [[id number]] | | | Collected: | | | [...] | | | fluid | | | [[id number]] | | | Collected: | | | [...] | | | Bharat, | | | [id number] | | [address], [place] | | | [address] | | | n [place] | | | [phone] | | | [phone] 1 | | | weekLindsay | | | Mahmood, | | | [id number] | | | GOETHALS | | | DRSTE | | | [place] | | | [place] | | | [phone] | | | [phone] 1 | | | weekJennife | | | r Ibarra, | | | [address] | | | [place] | | | [address] | | | [place] | | | [phone] | | | [phone] 1 | | [...] | | | | | [place] [address] | | | | | | [phone] | | | | | | | [...] | Left: | SYNOVIS | | | [id number] | | 0.8x8cm - [id number]: | | Arm | | | | [...] | | | COVIDIEN | | | [id number] | | 23cmExplanted: Qty: 1 on | | | | | | [id number] / | | 04/08/2014 | | | | | | | | | | | | | | /[id number] | | | | | | | [...] | + +--------+ + + + | [facility] CARD PANEL W/O | STAT | 05/26/2018 [...] DARA LOUISE Date of : 1995 | [facility] | | Performing Physician: René Noonan [...] MV A Shahid: 0.39 m/s MV Dec Pondera: 9.46 m/s2 | | | MV DecT: 106.01 ms MV E Shahid: 1.00 m/s MV E/A Ratio: | | | 2.54 E/E' Sept: 23.82 E' Lat: 0.08 m/s E' Sept: 0.04 | | | m/s RAP: 15 mmHg RV S': 0.11 m/s RVSP: 67.64 mmHg TR | | | maxP.64 mmHg TR Vmax: 3.61 m/s Used Car Manager: | | | Authenticated by: René Noonan MD Report Date/Time: -- | | | [id number]:15:25 | | + + + + + | Procedure Note | + + | Sonido Steele Results In - 06/12/2018 4:15 PM PDT Patient Name: Anders LOUISE of | | : 1995Accession: [id number] Physician: René Noonan MD | | INDICATIONS [...] (A-L): 31.60 | | ml/m2LAAs A2C: 18.56 [id number] A-L A2C: 58.49 mlLAESV MOD A2C: 54.57 mlLALs A2C: | | 5.00 cmLAAs A4C: 17.96 ii5NXUSD A-L A4C: 52.99 mlLAESV MOD A4C: 44.93 mlLALs A4C: | | 5.18 cmLAESV(MOD BP): 49.83 mlRAAs: 18.33 rx7XGIBT A-L: 57.01 mlRAESV MOD: | | 56.24 mlRALs: 5.02 cmTAPSE: 1.98 cmAV Env.Ti: 227.35 msAV maxP.22 mmHgAV | | meanP.25 mmHgAV Vmax: 1.59 m/Elizabeth Vmean: 1.06 m/Elizabeth VTI: 24.30 cmAVA Vmax: | | 2.68 cm2AVA (VTI): 2.73 hd7VNOI Vmax: 0.00 cm2/m2AVAI (VTI): 0.00 cm2/m2LVOT | | Env.Ti: 210.72 msLVOT maxP.99 mmHgLVOT meanP.87 mmHgLVSI Dopp: 37.17 | | ml/m2LVSV Dopp: 66.54 mlLVOT Vmax: 1.41 m/sLVOT Vmean: 1.03 m/sLVOT VTI: 21.88 | | cmMV A Shahid: 0.39 m/sMV Dec Pondera: 9.46 m/s2MV DecT: 106.01 msMV E Shahid: 1.00 | | m/sMV E/A Ratio: 2.54 E/E' Sept: 23.82 E' Lat: 0.08 m/sE' Sept: 0.04 m/sRAP: | | 15 mmHgRV S': 0.11 m/sRVSP: 67.64 mmHgTR maxP.64 mmHgTR Vmax: 3.61 | | m/sSonographer: Authenticated by: René Noonan MDReport Date/Time: -- | | [id number]:15:25IMPRESSION:1. Overall left ventricular systolic function is | [...] A Shahid: 0.39 m/s | |MV Dec Pondera: 9.46 m/s2 | |MV DecT: 106.01 ms | |MV E Shahid: 1.00 m/s | |MV E/A Ratio: 2.54 | |E/E' Sept: 23.82 | |E' Lat: 0.08 m/s | |E' Sept: 0.04 m/s | |RAP: 15 mmHg | |RV S': 0.11 m/s | |RVSP: 67.64 mmHg | |TR maxP.64 mmHg | |TR Vmax: 3.61 m/s | | | |Used Car Manager: | |Authenticated by: René Noonan MD | |Report Date/Time: -- [id number]:15:25 | | | |IMPRESSION: | |1. Overall [...] [facility] | [address] | [place] [address] | | + + + + + [...] [address], | | | | | [place] [address] | | | | |Testing performed at [facility], [address] [facility], [place] [address] | | | | | | | | + + + + + + + | Specimen | + + | Blood | + + + + + + + | Performing | Address | City/State/Zipcode | Phone Number | | Organization | | | | + + + + + | [facility] | [address] | [place] [address] | [phone] | | LABORATORY | [address] | | [...] performed at [facility], [address] | | | | | [facility], | | | | | [place] [address] | | | + + + + + + + | Specimen | + + | Blood | + + + + + + + | Performing | Address | City/State/Zipcode | Phone Number | | Organization | | | | + + + + + | [facility] | [address] | [place] [address] | [phone] | | LABORATORY | Blvd[address] | | [...] CHF (congestive heart failure) ([facility]) Transaminitis | | | The patient [...] | + + + + + | [facility] | [address] | [place] [address] | | + + + + + Cholesterol, body fluid (05/29/2018 12:56 PM) + + + + + | Component | Value | Ref Range | Performed At | + + + + + | FLUID CHOLESTEROL | 56Comment: This is not a | mg/dL | [facility] | | | geography instructor validated | | LABORATORY | | | sample type for this | | | | | method. No reference | | | | | ranges have been | | | | | established.Testing | | | | | performed at [facility], [address] | | | | | [facility], | | | | | [place] [address] | | | + + + + + + + | Specimen | + + | Body Fluid - | | Pleural, Right | + + + + + + + | Performing | Address | City/State/Zipcode | Phone Number | | Organization | | | | + + + + + | [facility] | [address] | [place] [address] | [phone] | | LABORATORY | [address] | | [...] + | [facility] | [address] | [place] [address] | [phone] | | LABORATORY | Blvd. | | | + + + + + Lactate dehydrogenase, body fluid (05/29/2018 12:56 PM) + + + + + | Component | Value | Ref Range | Performed At | + + + + + | FLUID LDH | 151Comment: This is not | U/L | [facility] | | | a geography instructor validated | | LABORATORY | | | sample type for this | | | | | method. No reference | | | | | ranges have been | | | | | established.Testing | | | | | performed at [facility], [address] | | | | | [facility], | | | | | [place] [address] | | | + + + + + + + | Specimen | + + | Body Fluid - | | Pleural, Right | + + + + + + + | Performing | Address | City/State/Zipcode | Phone Number | | Organization | | | | + + + + + | [facility] | [address] | [place] [address] | [phone] | | LABORATORY | Blvd. | | [...] | | space is punctured with an 8-Vincentian thoracentesis catheter. Fluid is | | | [...] the pleural space is punctured with an 8-Vincentian | | thoracentesis catheter. Fluid is aspirated [...] | + + + + + | [facility] | [address] | [place] [address] | | + + + + + APTT (05/29/2018 8:52 AM) + + + + + | Component | Value | Ref Range | Performed At | + + + + + | APTT | 29Comment: Testing | 23 - 32 seconds | [facility] | | | performed at [facility];[address];[place] | | | | | [address] | | | + + + + + + + | Specimen | + + | Blood | + + + + + + + | Performing | Address | City/State/Zipcode | Phone Number | | Organization | | | | + + + + + | [facility] | [address] | [place] [address] | | + + + + + Protime-INR (05/29/2018 8:52 AM) + + + + + | Component | Value | Ref Range | Performed At | + + + + + | INR | 1.5Comment: REFERENCE | | [facility] | | | RANGE:0.9 [...] [place];[address] | [address];[place] | | | | | [address] | | | + + + + + + + | Specimen | + + | Blood | + + + + + + + | Performing | Address | City/State/Zipcode | Phone Number | | Organization | | | | + + + + + | [facility] | [address] | [place] [address] | | + + + + + [...] | + + + + + | [facility] | [address] | [place] [address] | | + + + + + Troponin I (05/28/2018 1:59 PM)Only the most recent of 2 results within the time period is included. + + + + + | Component | Value | Ref Range | Performed At | + + + + + | TROPONIN I | 0.037Comment: 0.04 | 0.00 - 0.04 ng/mL | [facility] | | | ng/mL [...] performed at | | | | | [facility];[address] [facility] [facility] | | | | | vd;[place] [address] | | | + + + + + + + | Specimen | + + | Blood | + + + + + + + | Performing | Address | City/State/Zipcode | Phone Number | | Organization | | | | + + + + + | [facility] | [address] | [place] [address] | | + + + + + [...] | | [facility], [address] | | | | | [place] | | | | | [address] | | | + + + + + + + | Specimen | + + | Blood | + + + + + + + | Performing | Address | City/State/Zipcode | Phone Number | | Organization | | | | + + + + + | [facility] | [address] | [place] [address] | [phone] | | LABORATORY | [address] | | [...] performed at [facility], [address] | | | | | [facility], | | | | | [place] [address] | | | + + + + + + + | Specimen | + + | Blood | + + + + + + + | Performing | Address | City/State/Zipcode | Phone Number | | Organization | | | | + + + + + | [facility] | [address] | [place] [address] | [phone] | | LABORATORY | [address]vd[address] | | | + + + + + Renal function panel (05/28/2018 12:09 PM) + + + + + | Component | Value | Ref Range | Performed At | + + + + + | SODIUM | 141 | 135 - 145 mmol/L | [facility] | + + + + + | POTASSIUM | 4.3 | 3.5 - 4.9 mmol/L | [facility] | + + + [...] (H) | 0.50 - 1.00 mg/dL | [facility] | + + + + + | CALCIUM | 9.1 | 8.5 - 10.5 mg/dL | [facility] | + + + + + | Albumin | 3.6 | 3.6 - 5.0 g/dL | [facility] | + + + + + | PHOSPHORUS | 6.3 (H) | 2.3 - 4.8 mg/dL | [facility] | + + + + + | EGFR | 6 (L)Comment: GFR <60: | >60 mL/min/1.73m2 | [facility] | | | CHRONIC [...] [facility] [place];[address] | | | | | [address];[place] | | | | | [address] | | | + + + + + + + | Specimen | + + | Blood - Blood | + + + + + + + | Performing | Address | City/State/Zipcode | Phone Number | | Organization | | | | + + + + + | [facility] | [address] | [place] [address] | | + + + + + [...] + + + + | Calculated P [place] | 24 | degrees | [facility] | + + + + + | Calculated R [place] | 24 | degrees | [facility] | + + + + + | Calculated T [place] | 103 | degrees | [facility] [...] | + + + + + | [facility] | [address] | [place] [address] | | + + + + + Sedimentation rate, automated (05/28/2018 9:23 AM) + + + + + | Component | Value | Ref Range | Performed At | + + + + + | ESR | 2Comment: Testing | 0 - 20 mm/Hr | [facility] | | | performed at [facility], [address] | | LABORATORY | | | [address], | | | | | [place] [address] | | | + + + + + + + | Specimen | + + | Blood | + + + + + + + | Performing | Address | City/State/Zipcode | Phone Number | | Organization | | | | + + + + + | [facility] | [address] | [place] [address] | [phone] | | LABORATORY | [address]vd[address] | | | + + + + + C-reactive protein (05/28/2018 9:23 AM) + + + + + | Component | Value | Ref Range | Performed At | + + + + + | CRP | 5.1 (H)Comment: Testing | <0.5 mg/dL | [facility] | | | performed at [facility], [address] | | LABORATORY | | | [address], | | | | | [place] [address] | | | + + + + + + + | Specimen | + + | Blood | + + + + + + + | Performing | Address | City/State/Zipcode | Phone Number | | Organization | | | | + + + + + | [facility] | [address] [place] [address] | [place] [address] | [phone] | | LABORATORY | [address]vd[address] | | | + + + + + hCG, serum, qualitative (05/28/2018 9:23 AM) + + + + + | Component | Value | Ref Range | Performed At | + + + + + | TEST,SERUM | NEGATIVEComment: Testing | NEGATIVE | [facility] | | | performed at [facility], [address] | | LABORATORY | | | [address], | | | | | [place] [address] | | | + + + + + + + | Specimen | + + | Blood | + + + + + + + | Performing | Address | City/State/Zipcode | Phone Number | | Organization | | | | + + + + + | [facility] | [address] | [place] [address] | [phone] | | LABORATORY | [address]vd[address] | | | + + + + + TSH (05/28/2018 9:23 AM) + + + + + | Component | Value | Ref Range | Performed At | + + + + + | TSH | 1.270Comment: Testing | 0.450 - 5.100 uIU/mL | [facility] | | | performed at [facility], [address] | | LABORATORY | | | [facility] [address], | | | | | [place] [address] | | | + + + + + + + | Specimen | + + | Blood | + + + + + + + | Performing | Address | City/State/Zipcode | Phone Number | | Organization | | | | + + + + + | [facility] | [address] | [place] [address] | [phone] | | LABORATORY | [address]vd[address] | | [...] PERFORMING LABORATORY: Technical preparation was performed by [facility] | | | [facility], [address] [address] [facility] [place] [address] | | | (Chemistry Research Assistant: Matt Claudio D.O.; CLIA#: [id number]). | | | Professional interpretation was performed by [employer], | | | [facility], [address] [place] [id number] | | | (Chemistry Research Assistant: Daniel Larson M.D.; CLIA#: [id number]).6 | | | Diagnostician: Marie BROOKS ([facility]) Traffic Signal Supervisor Maintenance | | | Diagnostician: Anahy Da Silva MD Pathologist Electronically Signed | | | 05/30/2018 | | + + + + +---------+ + + | Performing | Address | City/State/[facility] | Phone Number | | Organization | | | | + +---------+ + + | [facility] | | | | + [...] + + + | [facility] | [address] | [place] [address] | [phone] | | LABORATORY | [address] | | [...] | | [facility], [address] [place] [address] | | | | | [place], [place] | | | | | [address] | | | + + + + + + + + + + | Performing | Address | City/State/Zipcode | Phone Number | | Organization | | | | + + + + + | [facility] | [address] | [place] [address] | [phone] | | LABORATORY | [address] | | | + + + + + Echo cardiac adult complete (05/27/2018 12:01 PM) + +---------+ + + | Component | Value | Ref Range | Performed At | + +---------+ + + | LV EF | 25 (LL) | 50 - 70 % | [facility] | | | | | RADIOLOGY | + +---------+ + + + + + | Impressions | Performed At | + + + | 1. Sinus rhythm. 2. A 2-dimensional transthoracic echocardiogram | [facility] | | with m-mode, spectral and color [...] valve is normal. 18. | | | Pqnz-wd-kdbbidps eccentric mitral regurgitation is present. 19. | [...] DARA LOUISE Date of : 1995 | [facility] | | Performing Physician: Robel De [...] valve is normal. 18. | | | Qnum-iv-sxbztjgc eccentric mitral regurgitation is present. 19. | [...] is | | | normal. Mitral Valve: Hzcd-hw-pwvynzji eccentric mitral | | | regurgitation is [...] TR Vmax: 2.74 m/s | | | Used Car Manager: MW Authenticated by: Robel Yusuf MD Report | | | Date/Time: 05-27-2018 13:59:57 | | + + + + + | Procedure Note | + + | Cedric, Rad Results In - 05/27/2018 2:00 PM PDT Patient Name: Anders LOUISE of | | : 1995Accession: [id number] Physician: Robel Yusuf | | MD INDICATIONS [...] aortic stenosis.17. The mitral valve is normal.18. Uody-ez-jbyradlc | | eccentric mitral regurgitation is present.19. [...] The mitral valve is normal. Mitral Valve: Ksjt-co-pdjhuikc eccentric mitral | | regurgitation is present.Tricuspid [...] (A-L): 30.43 | | ml/m2LAAs A2C: 20.97 so3HZSAC A-L A2C: 65.71 mlLALs A2C: 5.68 cmLAAs A4C: 19.94 | | gf8UHLWU A-L A4C: 60.20 mlLALs A4C: 5.60 cmTAPSE: 1.58 cmHR: 79.62 BPMAV maxPG: | | 6.06 mmHgAV meanP.71 mmHgAV Vmax: 1.23 m/Elizabeth Vmean: 0.92 m/Elizabeth VTI: 20.07 | | cmAVA Vmax: 1.74 cm2AVA (VTI): 1.93 ir7GIXI Vmax: 0.00 cm2/m2AVAI (VTI): 0.00 | | [...] The mitral valve is | | normal.18. Semo-ip-anyhokbn eccentric mitral regurgitation is present.19. Severe | [...] and aortic arch are normal.26. No mass wnavgxlgfy43. No clot visualized | |LVIDd: 4.99 cm [...] |TR Vmax: 2.74 m/s | | | |Used Car Manager: MOO | |Authenticated by: Robel Yusuf [...] The mitral valve is normal. | |18. Tqtw-jo-wzsjvenh eccentric mitral regurgitation is present. | |19. [...] | + + + + + | [facility] | [address] | [place] [address] | | + + + + + [...] | + + + + + | [facility] | [address] | [place] [address] | | + + + + + Phosphorus (05/27/2018 4:25 AM) + + + + + | Component | Value | Ref Range | Performed At | + + + + + | PHOSPHORUS | 8.0 (H)Comment: Testing | 2.3 - 4.8 mg/dL | [facility] | | | performed at [facility], [address] | | LABORATORY | | | [address], | | | | | [place] [address] | | | + + + + + + + | Specimen | + + | Blood | + + + + + + + | Performing | Address | City/State/Zipcode | Phone Number | | Organization | | | | + + + + + | [facility] | [address] | [place] [address] | [phone] | | LABORATORY | [address] | | [...] (H)Comment: | 0 - 100 pg/mL | [facility] | | PEPTIDE | Testing performed at | | | | | [facility];[address] | | | | | Blvd;[place] [address] | | | + + + + + + + | Specimen | + + | Blood | + + + + + + + | Performing | Address | City/State/Zipcode | Phone Number | | Organization | | | | + + + + + | [facility] | [address] | [place] [address] | | + + + + + Magnesium (05/27/2018 4:25 AM) + + + + + | Component | Value | Ref Range | Performed At | + + + + + | MAGNESIUM | 2.7 (H)Comment: Testing | 1.7 - 2.4 mg/dL | [facility] | | | performed at [facility], [address] | | LABORATORY | | | [address], | | | | | [place] [address] | | | + + + + + + + | Specimen | + + | Blood | + + + + + + + | Performing | Address | City/State/Zipcode | Phone Number | | Organization | | | | + + + + + | [facility] | [address] | [place] [address] | [phone] | | LABORATORY | [address] | | [...] performed at [facility], [address] | | | | | [address], | | | | | [place] [address] | | | + + + + + + + | Specimen | + + | Blood | + + + + + + + | Performing | Address | City/State/Zipcode | Phone Number | | Organization | | | | + + + + + | [facility] | [address] | [place] [address] | [phone] | | LABORATORY | [address] | | [...] | | [facility], [address] | | | | | [place] | | | | | [address] | | | + + + + + + + | Specimen | + + | Nasopharynx/Orophary | | nx | + + + + + + + | Performing | Address | City/State/Zipcode | Phone Number | | Organization | | | | + + + + + | [facility] | [address] | [place] [address] | [phone] | | LABORATORY | [address] | | | + + + + + MRSA by PCR (05/26/2018 6:06 PM) + + + + + | Component | Value | Ref Range | Performed At | + + + + + | SOURCE | NARES(NOSE) | | [facility] | + + + + + | MRSA PCR | NEGATIVEComment: Testing | NEGATIVE | [facility] | | | performed at [facility];[address] | | | | | [address];[place] | | | | | [address] | | | + + + + + + + | Specimen | + + | Nasopharyngeal - | | Nares(Nose) | + + + + + + + | Performing | Address | City/State/Zipcode | Phone Number | | Organization | | | | + + + + + | [facility] | [address] | [place] [address] | | + + + + + PROCALCITONIN (05/26/2018 5:27 PM)Only the most recent of 2 results within the time period is included. + + + + + | Component | Value | Ref Range | Performed At | + + + + + | PROCALCITONIN | 0.76 (H)Comment: | <0.5 ng/mL | [facility] | | | INTERPRETIVE [...] performed | | | | | at [facility];[address] [place] [address] | | | | | [facility];[place] [address] | | | + + + + + + + + + + | Performing | Address | City/State/Zipcode | Phone Number | | Organization | | | | + + + + + | [facility] | [address] | [place] [address] | | + + + + + [...] | + + + + + | [facility] | [address] | [place] [address] | | + + + + + [...] STAIN | STAIN PERFORMED ON | | [facility] | | | [facility]TOS[facility] | | [...] | [address] | [place] [address] | [phone] | | LABORATORY | Blvd. | | | + + + + + | [facility] | [address] | [place] [address] | | + + + + + Pathologist consult (05/26/2018 2:12 PM) + + + + + | Component | Value | Ref Range | Performed At | + + + + + | Pathologist Consult | Comment: Review of | | [facility] | | | pleural [...] performed | | | | | at [facility];[address];[place] [address] | | | + + + + + + + + + + | Performing | Address | City/State/Zipcode | Phone Number | | Organization | | | | + + + + + | [facility] | [address] | [place] [address] | | + + + + + [...] + | APPEARANCE | CLOUDY | | [facility] | + + + + + | RBC'S | 3,000Comment: CORRECTED | /mm3 | [facility] | | | RESULTS CALLED TO | | | | | MARIA LUISA IN ED AT 1705 | | | | | BY LGJCORRECTED ON 05/26 | | | | | AT 1702: PREVIOUSLY | | | | | REPORTED <[id number] | | | + + + + + | TOTAL NUCLEATED | 253Comment: CORRECTED | /mm3 | [facility] | | CELLS | [...] CELLS COUNTED | 100Comment: Testing | | [facility] | | | performed at [facility];[address] | | | [address];[place] | | | | | [address] | | | + + + + + + + | Specimen | + + | Body Fluid - Lung, | | Right Lower Lobe | + + + + + + + | Performing | Address | City/State/Zipcode | Phone Number | | Organization | | | | + + + + + | [facility] | [address] | [place] [address] | | + + + + + Total Protein, Body Fluid (05/26/2018 2:12 PM) + + + + + | Component | Value | Ref Range | Performed At | + + + + + | FLUID TOTAL PROTEIN | 4.2Comment: This is not | g/dL | [facility] | | | a geography instructor validated | | LABORATORY | | | sample type for this | | | | | method. No reference | | | | | ranges have been | | | | | established.Testing | | | | | performed at [facility], [address] | | | | [facility], | | | | | [place] [address] | | | + + + + + | FLUID TP SOURCE | PLEURAL FLUIDComment: | | [facility] | | | Testing performed at | | | | | [facility];[address] | | | | [address];[place] [address] | | | + + + + + + + | Specimen | + + | Body Fluid - Lung, | | Right Lower Lobe | + + + + + + + | Performing | Address | City/State/Zipcode | Phone Number | | Organization | | | | + + + + + | [facility] | [address] | [place] [address] | | + + + + + | [facility] | [address] | [place] [address] | [phone] | | LABORATORY | [address]. | | | + + + + + Albumin, Body Fluid (05/26/2018 2:12 PM) + + + + + | Component | Value | Ref Range | Performed At | + + + + + | FLUID ALBUMIN | 2.3Comment: This is not | g/dL | [facility] | | | a geography instructor validated | | LABORATORY | | | sample type for this | | | | | method. No reference | | | | | ranges have been | | | | | established.Testing | | | | | performed at [facility], [address] | | | | | [facility], | | | | | [place] [address] | | | + + + + + + + | Specimen | + + | Body Fluid - Lung, | | Right Lower Lobe | + + + + + + + | Performing | Address | City/State/Zipcode | Phone Number | | Organization | | | | + + + + + | [facility] | [address] | [place] [address] | [phone] | | LABORATORY | [address] | | | + + + + + pH, Body Fluid (05/26/2018 2:12 PM) + + + + + | Component | Value | Ref Range | Performed At | + + + + + | FLUID PH | 7.45Comment: Testing | | [facility] | | | performed at [facility];[address] | | | | [address];[place] | | | | | [address] | | | + + + + + + + | Specimen | + + | Body Fluid - Lung, | | Right Lower Lobe | + + + + + + + | Performing | Address | City/State/Zipcode | Phone Number | | Organization | | | | + + + + + | [facility] | [address] | [place] [address] | | + + + + + [...] 12.1 | 11.3 - 15.5 g/dL | [facility] | + + + [...] 99 | 99 - 109 mmol/L | [facility] | + + + + + | CO2 | 27 | 23 - 32 mmol/L | [facility] | + + + + + | ANION GAP AGAP | 19 | 5 - 20 mmol/L | [facility] | + + + + + | GLUCOSE | 85 | 65 - 99 mg/dL | [facility] | + + + [...] 2.9 | 1.3 - 4.9 g/dL | [facility] | + + + + + | A/G | 1.5 | 1.0 - 2.4 | [facility] | + + + + + | TBIL | 1.1 | 0.1 - 1.5 mg/dL | [facility] | + + + + + | ALK PHOS | 120 (H) | 35 - 115 U/L | [facility] | + + + + + | AST | 82 (H) | 10 - 45 U/L | [facility] | + + + + + | ALT | 64 | 10 - 65 U/L | [facility] | + + + + + | EGFR | 6 (L)Comment: GFR <60: | >60 mL/min/1.73m2 | [facility] | | | CHRONIC [...] | INR | 1.6Comment: REFERENCE | | [facility] | | | RANGE:0.9 [...] (H) | 0.5 - 3.6 ng/mL | [facility] | + + + + + | CK-MB Index | 2.7Comment: CK INDEX | | [facility] | | | INTERPRETATION: [...] | performed at [facility] | | | | | [address];[place], [place] | | | | | [address] | | | + + + + + + + + + + | Performing | Address | City/State/Zipcode | Phone Number | | Organization | | | | + + + + + | [facility] | [address] | [place] [address] | | + + + + + [...] space: 4th Puncture | | | method: [id number]-bxj-[id number] catheter Ultrasound guidance: yes | | | [...] perforation, infection and | | | pain [place] protocol: Imaging studies available: yes | | [...] Performed At | + + + | [id number] [id number] Criteria Met 2 in 2 | ED [...] Count (12 mo.) Facility Visits Low Acuity [facility] | | | [facility] 1 0 [facility] 5 0 Total 6 0 | | | Note: Visits indicate total known visits. Medicaid Low Acuity Dx | | | are the number of primary diagnoses on the Medicaid's Low Acuity dx | | | list. Recent Emergency Department Visit Summary Date Facility | | | City State Type Diagnoses or Chief Complaint May 26, 2018 [facility] | | | [facility] [place] Emergency Chest pain, unspecified | | | May 26, [address] [facility] [address] [place] [place] Emergency Chief | | | Complaint: FLU SYMPTOMS May 25, 2018 [facility] [place] | | | Emergency Chief Complaint: SOB/COUGH May 10, [address] [facility] [address] | | | [place] [facility]. [...] | | | disease Feb 14, 2018 [facility] [place] Emergency | | | Functional dyspepsia Other ascites Epigastric pain | | | Allergy status to narcotic agent status Radiographic dye | | | allergy status Nicotine dependence, unspecified, uncomplicated | | | Other watermaster (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 Sep 16, 2017 [facility] | | | [place] Emergency Chronic kidney disease, | | | unspecified Dependence on renal dialysis Pain, | | | unspecified Allergy status to narcotic agent status | | | Nicotine dependence, unspecified, uncomplicated Other watermaster | | | (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 Elevated [...] [facility] | | | [facility] Emergency Department For more information visit: | | | [email or web address] | | | [email or web address] andnbsp PLEASE NOTE: [...] | | completeness of information provided. 2019 [email or web address] | | | [employer]. - [email or web address] | | + + + + + | Procedure Note | + + | Interface, Lab - 05/26/2018 12:00 PM PDT Formatting of this note may be different | | from the original.[id number]:57SHELBY [id number] Met 2 in 2Security and | | SafetyNo recent Security Events currently on fileED Care GuidelinesThere are currently | | no ED Care Guidelines for this patient. Please check your facility's medical records | | system.Prescription Drug Report (12 Mo.)PDMP query found no report.E.D. Visit Count (12 | | mo.)Facility Visits Low Acuity [facility] 1 0 [facility] | | Hospital 5 0 Total 6 0 Note: Visits indicate total known visits. Medicaid Low Acuity Dx | | are the number of primary diagnoses on the Medicaid's Low Acuity dx list. Recent | | Emergency Department Visit SummaryDate Facility [facility] Type Diagnoses or Chief | | Complaint [facility] 26, 2018 [facility] Chest pain, | | unspecified May [...] end stage renal disease Feb 14, 2018 [facility] [place] | | [place] Emergency Functional dyspepsia Other ascites Epigastric pain | | Allergy status to narcotic agent status Radiographic dye allergy status Nicotine | | dependence, unspecified, uncomplicated Other watermaster (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 Sep | | 2017 [facility] [place] Emergency Chronic kidney disease, unspecified | | Dependence on renal dialysis Pain, unspecified Allergy status to narcotic agent | | status Nicotine dependence, unspecified, uncomplicated Other long-term (current) | | 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 Elevated blood-pressure [...] | LalaThis patient has registered at the [facility] Emergency | | Department For more information visit: | | [email or web address] andnbsp | | PLEASE NOTE: 1. Any [...] or completeness of information | | provided.2019 [employer]. - [email or web address] | | Hypertensive heart and chronic kidney disease without heart failure, with stage 5 chroni c kidney disease, or end stage renal disease | | | |Feb 14, 2018 [facility] [place] Emergency | | Functional dyspepsia | | Other ascites | | Epigastric pain | | Allergy status to narcotic agent status | | Radiographic dye allergy status | | Nicotine dependence, unspecified, uncomplicated | | Other long-term (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 | | | |Sep 16, 2017 [facility] [place] Emergency | | Chronic kidney disease, unspecified | | Dependence on renal dialysis | | Pain, unspecified | | Allergy status to narcotic agent status | | Nicotine dependence, unspecified, uncomplicated | | Other watermaster (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 | | Elevated blood-pressure [...] providers on record at this time. | |[facility] | |This patient has registered at the [facility] Emergency Department | |For more information visit: [email or web address] | |andnbsp PLEASE NOTE: | | 1. [...] of information provided. | | | |2019 [employer]. 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
--- OUTSIDE RECORDS SUMMARY | ~2018-06-19 | XMS | Encounter Summary ---
Demographics + + + | Address | [address] | | | [place] [address] | + + + | Home Phone [...] + + + | Author | [facility] [employer] [employer] | + + + | Organization [...] Providers + +------+ + | Care Banquet Set Up Person Name | Role | [...] | [address] | [place], [place] | HF chronicity (HCC) | | | | [address] | [address] | (Primary Dx); | | | | [place] [address] | | Severe tricuspid | | | | [phone] | | regurgitation; | | | | | | Pulmonary HTN ([facility]); | | | | | | ESRD (end stage | | | | | | renal disease) ([facility]) | +--------+---------+ + + + [...] th e jared. [facility] Cardiology Consult Note Reason for Consultation: [...] History Diagnosis Date Anemia Clotted dialysis access ([facility]) 2014 ESRD (end stage renal disease) ([facility]) HSP (Henoch-Schonlein purpura) nephritis ([facility]) Hypertension Past Surgical History Procedure Laterality Date ABDOMINAL SURGERY AV FISTULA PLACEMENT AV FISTULA PLACEMENT Left 04/08/2014 Procedure: AV FISTULA; Surgeon: Rik Simon MD; Location: [facility] MAIN OR; Service: Vascula r; Laterality: Left; cephalic AV FISTULA REPAIR Left 03/07/2014 Procedure: AV FISTULA - GRAFT REPAIR/REVISION; Surgeon: Rik Simon MD; Location: [facility] IN OR; Service: Vascular; Laterality: Left; DECLOT GRAFT Left 03/07/2014 Procedure: GRAFT - DECLOT; Surgeon: Rik Simon MD; Location: [facility] MAIN OR; Service: Vas cular; [...] SUPERFICIALIZATION; Surgeon: Rik Simon MD; Location: [facility] MAIN OR; Service: Vascular; Laterality: [...] 17. The mitral valve is normal. 18. Fwrf-nb-rfvxokjo eccentric mitral regurgitation is present. 19. Severe [...] on HD. She recently presented to the [facility] after missing several dialysis sessions in [place]. [...] Gretchen Teran for heart failure therapy [facility]. Thank you for allowing me to [...] | | | | | [place] [address] | | | | | | [phone] | | | | | | | [...]
--- OUTSIDE RECORDS SUMMARY | ~2018-06-19 | XMS | Encounter Summary ---
Demographics + + + | Address | [address] | | | [place] [address] | + + + | Home Phone [...] | [facility] | | | and [place] | + + + | Organization | [facility] | [...] Team Providers + +------+ + | Care Ad Setter Name | Role | Phone | [...] | | [address] | [address] | | | | | [place], [place] | [place], [place] | | | | | [address] | [address] | | | | | [phone] | | | +--------+ + + + [...]
--- OUTSIDE RECORDS SUMMARY | ~2018-06-19 | XMS | Encounter Summary ---
Demographics + + + | Address | [address] | | | [place] [address] | + + + | Home Phone [...] | Author | [facility] | | | and [place] | + + + | Organization | [facility] [...] | | KIDNEY TRANSPLANT | [address] [place], | | | | | [address] [facility] [address] | | | | | [address] [place] | [phone] | | | | | [address] | | | | | | [phone] | | | +--------+ + + + [...]
[~2018-06-19 23:43] MED LIST changes: +ONDANSETRON ODT8 MG PO
--- OUTSIDE RECORDS SUMMARY | 2018-06-19 23:46 | XMS ---
PreManage Notification: CONOR LOUISE Security Fisheries Diver Events No recent Security Events currently on file CRITERIA MET - 6 ED Visits in 6 Months - [facility] - Has Care Guidelines - PDMP - [facility] - 2 Visits in 30 Days CARE PROVIDERS TIEN NICHOLSON Hospitalist 05/28/2018-Current PHONE: Unknown Karena has no Care Guidelines for this patient. Care History Medical/Surgical 05/28/2018 [facility] - Patient is currently established with [facility]. If patient is seen in the ED during business hours. Please contact CHWs at [facility]. Care Recommendation: This patient has had [...] care. E.D. VISIT COUNT (12 MO.) 1 [facility] 9 [facility] TOTAL 10 NOTE: Visits indicate total known visits. 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 truck driver (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 - Radiographic dye allergy status - rat exterminator (current) use of opiate analgesic - Personal history of nicotine dependence 06/04/2018 06:07 [facility] TYPE: Emergency COMPLAINT: - SOB DIAGNOSES: - Shortness of breath - Allergy status to other drugs, medicaments and biological substances status - Radiographic dye allergy status - 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 truck driver (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 - Dyspnea, unspecified - Allergy status to narcotic agent status - Respiratory syncytial virus as the cause of diseases classified elsewhere 05/26/2018 11:57 [facility] TYPE: Emergency DIAGNOSES: - Acute respiratory distress - Chest pain, unspecified - Other ascites - Pleural effusion, not elsewhere classified 05/26/2018 07:23 [facility] [place] TYPE: Emergency COMPLAINT: - FLU SYMPTOMS DIAGNOSES: - Allergy status to other drugs, medicaments and biological substances status - Other group home (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 - Radiographic dye allergy status - Dependence on renal dialysis - Pleural effusion, not elsewhere classified - Allergy status to narcotic agent status - Shortness of breath 05/25/2018 11:53 [facility] [place] TYPE: Emergency COMPLAINT: - SOB/COUGH DIAGNOSES: - Dependence on renal dialysis - Shortness of breath - Allergy status to narcotic agent status - Pneumonia, unspecified organism - Other group home (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 - Radiographic dye allergy status - Pleural effusion, not elsewhere classified - Allergy status to other drugs, medicaments and biological substances status 05/10/2018 07:20 [facility] [place] TYPE: Emergency COMPLAINT: - PREVIOUS BLOODY NOSE DIAGNOSES: - Epistaxis - 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 truck driver (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 - End stage renal [...] unspecified, uncomplicated - Epigastric pain - 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 truck driver (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 09/16/2017 23:06 [facility] [place] TYPE: Emergency COMPLAINT: - BP PROBLEM,RENAL FAILURE DIAGNOSES: - Chronic kidney disease, unspecified - Dependence on renal dialysis - Pain, unspecified - Allergy status to narcotic agent status - Nicotine dependence, unspecified, uncomplicated - 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 truck driver (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 - Elevated blood-pressure reading, without diagnosis of hypertension - Patient's noncompliance with renal dialysis - Hypertensive chronic kidney disease with stage 1 through stage 4 chronic kidney disease, or unspecified chronic kidney disease - Radiographic dye allergy status INPATIENT VISIT TRACKING (12 MO.) [facility]2018 [facility] TYPE: General Medicine DIAGNOSES: - Acute [...] specified personal risk factors, not elsewhere classified [email or web address]
[2018-06-20] MEDS ORDERED: VALSARTAN80 MG
--- NOTE | 2018-06-20 15:58 | EKG ---
[facility] [address] [place], [place] [address] Signed Sinus tachycardia Otherwise normal ECG When compared with ECG of 11-JUN-2018 08:01, Nonspecific T wave abnormality now evident in Lateral leads Confirmed by REYNA POSEY DO ([id number]) on 06/20/2018 3:57:52 PM Electronically Signed By: REYNA POSEY DO 06/20/18 1558 PATIENT NAME: CONOR LOUISE Electrocardiogram DATE OF : [birth year] PHYSICIAN: REYNA POSEY DO REPORT #: [id number] REPORT IS CONFIDENTIAL AND NOT TO BE RELEASED WITHOUT AUTHORIZATION
== END 2018-06-20 03:55 | disposition home or self-care (01) ==
LOC: ED 23:43
DX: I50.9 Heart failure, unspecified (principal); E87.70 Fluid overload, unspecified; N18.6 End stage renal disease; Z99.2 Dependence on renal dialysis; Z87.891 Personal history of nicotine dependence; Z79.891 Long term (current) use of opiate analgesic; Z88.8 Allergy status to other drugs, medicaments and biological substances; Z91.041 Radiographic dye allergy status; Z79.899 Other long term (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
CPT/HCPCS: 71045; 80053; 83880; 84484; 85025; 93005; 93010; 96374; 96375; 99285-25; J1200; J2405; J2550

== ENCOUNTER 2018-07-18 17:26 | Emergency (ER) | payer MEDICARE, OTHER ==
[~2018-07-18] VITALS: Ht 170.2 cm; Wt 68.3 kg
--- OUTSIDE RECORDS SUMMARY | ~2018-07-18 | XMS | Encounter Summary ---
Demographics + + + | Address | [address] | | | [place] [address] | + + + | Home Phone [...] Author + + + | Author | [facility] | + + + | Organization | [facility] | + + + | Address | Unknown | + + + | Phone | Unavailable | + + + Support + + + + + | Name | Relationship | Address | Phone | + + + + + | Cory Weldon | ECON | [address] | | | | | [place] [address] | | + + + + + | Thania Mallory | ECON | [address] | | | | | [place] [address] | | + + + + + | Deidra Weldon | ECON | [address] | | | | | [place] | | | | | [address] | | + + + + + Care Team Providers + +------+ + | Care Dishwasher Preparer Name | Role | Phone | + +------+ + | Shahid Camargo MD | PCP | Unavailable | + +------+ + Reason for Visit + + + | Reason | Comments | + + + | Candidate donor | | + + + Encounter Details +--------+ + + + + | Date | Type | Department | Care Team | Description | +--------+ + + + + | 11/26/ | Telephone | Transplant | Kelsi Martinez, | Candidate donor | | 2012 | | Coordinators [address] | RN [address] | | | | | [address] [facility] | [facility] | | | | | Road [place], [place] | [place], [place] | | | | | [address] | [address] | | | | | [phone] | | | +--------+ + + + [...] Denise | | | | | | [place] | | | | | | [address] | | | | | | [phone] | | | | | | | | +--------+ + + + + documented as of this encounter Visit Diagnoses Not on filedocumented in this encounter"
--- OUTSIDE RECORDS SUMMARY | ~2018-07-18 | XMS | Encounter Summary ---
Demographics + + + | Address | [address] | | | [place] [address] | + + + | Home Phone [...] Author + + + | Author | [facility] | + + + | Organization | [facility] | + + + | Address | Unknown | + + + | Phone | Unavailable | + + + Support + + + + + | Name | Relationship | Address | Phone | + + + + + | Cory Weldon | ECON | [address] | | | | | [place] [address] | | + + + + + | Thania Mallory | ECON | [address] | | | | | [place] [address] | | + + + + + | Deidra Weldon | ECON | [address] | | | | | [place] | | | | | [address] | | + + + + + Care Team Providers + +------+ + | Care Home Health Registered Nurse Name | Role | Phone | [...] | 2012 | on | at [facility] [address] | MD [address] | Family sheet) | | | | [facility] | [facility] | | | | | Mailcode: PP262 | [place], [place] | | | | | Physicians Ifeanyi | [address] | | | | | [address], | [phone] | | | | | [place] [address] | | | | | | [phone] | | | +--------+ + + + [...] [place] | | | | | | [address] | | | | | | [phone] | | | | | | | | +--------+ + + + + documented as of this encounter Visit Diagnoses Not on filedocumented in this encounter"
--- OUTSIDE RECORDS SUMMARY | ~2018-07-18 | XMS | Clinical Summary ---
Demographics + + + | Address | [address] | | | [place] [address] | + + + | Home Phone [...] | | | | | [place] [address] | | + + + + + | Thania Mallory | ECON | [address] | | | | | [place] [address] | | + + + + + | Deidra Weldon | ECON | [address] | | | | | [place] | | | | | [address] | | + + + + + Care Team Providers + +------+ + | Care Dairy Hand Name | Role | Phone | + +------+ + | Jonathan Alonso MD | PP | | + +------+ + Source Comments DANILO is fully live on both EpicCare Ambulatory and EpicCare InPatient.[facility] Allergies + + + + + [...] Denise | | | | | | [place], [place] | | | | | | [address] | | | | | | [phone] | | | | | | | | +--------+ + + + + + + + + + | Health Maintenance | Due Date | Last Done | Comments | + + + + + | Pneumococcal | | | | | vaccination (1 3 | 2 | | | | - PCV13) | | | | + + + + + | Influenza (Flu) | | 12/13/2012 | | | vaccination (Season | 9 | | | | Ended) | | | | + + + [...] + +--------+ | MEDICARE | MEDICA | xxxxxxxxxx | 05/05/19 | [phone] | [address] | Medica | | | RE A & | | 13-Pre | 1 | [address] | re | | | B | | sent | | [place] | | | | | | | | [address] | | + +--------+ +--------+ + +--------+ | DIETICIAN MEDICAID | DIETICIAN | [id number] | Effect | | | [facility]ica | | | [facility] | | eboni | | | id | | | [place] | | for | | | | | | | | all | | | | | | | | dates | | | | + +--------+ +--------+ + +--------+ | MEDICARE RENAL | MEDICA | xxxxxxxxxx | Effect | | RENAL | Agency | | RECIPIENT EVAL | RE | | eboni | | DEPT [id number] | | | | RENAL | | for | | [place], | | | | RECIPI | | all | | [place] [address] | | | | ENT | | [...] | Self | [birth year] | [address] | | | al/Fam | | 1995 | [phone] | [address] [place] | | | [place] | | | 2 (Home) | [address] | | | | | | [phone] | | | | | | | 0 (Work) | | + +--------+ +--------+ + + | CORY ALVES | Wanderia | Mother | [birth year] | [address] | | | l | | 1899 | [phone] | 3 [place] | | | [place] | | | 2 (Home) | [address] | | | g | | | | | + +--------+ +--------+ + +
--- OUTSIDE RECORDS SUMMARY | ~2018-07-18 | XMS | Encounter Summary ---
Demographics + + + | Address | [address] | | | [place] [address] | + + + | Home Phone [...] Author + + + | Author | [facility] | + + + | Organization | [facility] | + + + | Address | Unknown | + + + | Phone | Unavailable | + + + Support + + + + + | Name | Relationship | Address | Phone | + + + + + | Cory Weldon | ECON | [address] | | | | | [place] [address] | | + + + + + | Thania Mallory | ECON | [address] | | | | | [place] [address] | | + + + + + | Deidra Weldon | ECON | [address] | | | | | [place] | | | | | [address] | | + + + + + Care Team Providers + +------+ + | Care Statuary Painter Name | Role | Phone | + +------+ + | No Pcp Per Patient | PCP | Unavailable | + +------+ + Reason for Visit +--------+ + | Reason | Comments | +--------+ + | Other | Fistula | +--------+ + Encounter Details +--------+ + + + + | Date | Type | Department | Care Team | Description | +--------+ + + + + | 03/12/ | Telephone | Transplant | Kelsi Martinez, | Other (Fistula) | | 2015 | | Coordinators [address] | RN [address] [facility] | | | | | [facility] | [facility] | | | | | Road [place], [place] | [place], [place] | | | | | [address] | [address] | | | | | [phone] | | | +--------+ + + + [...] Denise | | | | | | [place] | | | | | | [address] | | | | | | [phone] | | | | | | | | +--------+ + + + + documented as of this encounter Visit Diagnoses Not on filedocumented in this encounter"
--- OUTSIDE RECORDS SUMMARY | ~2018-07-18 | XMS | Encounter Summary ---
Demographics + + + | Address | [address] | | | [place] [address] | + + + | Home Phone [...] Author + + + | Author | [facility] | + + + | Organization | [facility] | + + + | Address | Unknown | + + + | Phone | Unavailable | + + + Support + + + + + | Name | Relationship | Address | Phone | + + + + + | Cory Weldon | ECON | [address] | | | | | [place] [address] | | + + + + + | Thania Mallory | ECON | [address] | | | | | [place] [address] | | + + + + + | Deidra Weldon | ECON | [address] | | | | | [place] | | | | | [address] | | + + + + + Care Team Providers + +------+ + | Care Curtain Inspector Name | Role | Phone | [...] | Family sheet) | | | | [facility] | [facility] | | | | | Mailcode: [id number] | [place], [place] | | | | | Physicians Ifeanyi | [address] | | | | | [address], | [phone] | | | | | [place] [address] | | | | | | [phone] | | | +--------+ + + + [...] [place] | | | | | | [address] | | | | | | [phone] | | | | | | | | +--------+ + + + + documented as of this encounter Visit Diagnoses Not on filedocumented in this encounter"
--- OUTSIDE RECORDS SUMMARY | ~2018-07-18 | XMS | Encounter Summary ---
Demographics + + + | Address | [address] | | | [place] [address] | + + + | Home Phone [...] Author + + + | Author | [facility] | + + + | Organization | [facility] | + + + | Address | Unknown | + + + | Phone | Unavailable | + + + Support + + + + + | Name | Relationship | Address | Phone | + + + + + | Cory Weldon | ECON | [address] | | | | | [place] [address] | | + + + + + | Thania Mallory | ECON | [address] | | | | | [place] [address] | | + + + + + | Deidra Weldon | ECON | [address] | | | | | [place] | | | | | [address] | | + + + + + Care Team Providers + +------+ + | Care Litigation Counsel Name | Role | Phone | + +------+ + | Jonathan Alonso MD | PCP | | + +------+ + Encounter Details +--------+------+ + + + | Date | Type | Department | Care Team | Description | +--------+------+ + + + | 01/20/ | Lab | [facility] | | 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); Chronic | | | | | | kidney disease, | | | | | | stage V ([facility]) | +--------+------+ + + + Social History [...] Denise | | | | | | [place], [place] | | | | | | [address] | | | | | | [phone] | | | | | | | [...] | e | 9:59 AM | MEDICARE 4791 HSP | procedure are in the | [...] | | | | | stage V ([facility]) | | + +--------+ + + [...] | | | | | stage V ([facility]) | | + +--------+ + + [...] | | | | | stage V ([facility]) | | + +--------+ + + [...] | | | | | stage V ([facility]) | | + +--------+ + + [...] | | | | | stage V ([facility]) | | + +--------+ + + + | HIV-1,2 AB/HIV-1 P24 | Routin | 01/20/2015 | Allergic purpura- | Results for this | | AG SCRN | e | 9:59 AM | MEDICARE 2728 HSP | procedure are in the | | | | PST | ([facility] | results section. | | |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 | | | | | | Hemodialysis status | | | | | | ([facility]) Chronic | | | | | | kidney disease, | | | | | | stage V (HCC) | | + +--------+ + + + | RPR SERUM | Routin | 01/20/2015 | Allergic purpura- | Results for this | | | e | 9:59 AM | MEDICARE 2728 HSP | procedure are in the | | | | PST | ([facility] | results section. | | | | [...] the | | | | PST | ([facility] | results section. | | | | [...] the | | | | PST | ([facility] | results section. | | | | [...] the | | | | PST | ([facility] | results section. | | | | [...] the | | | | PST | ([facility] | results section. | | | | [...] the | | | | PST | ([facility] | results section. | | | [...] the | | | | PST | ([facility] | results section. | | | | [...] + | [facility] | [address] | [place] [address] | | | [place] | | | | + + + [...] not included in the IG count. [facility] | LABORATORY | | are included in the neutrophil count. | SERVICES, CORE | + + + + + + + + | Performing | Address | City/State/Zipcode | Phone Number | | Organization | | | | + + + + + | [facility] | [address] | [place] [address] | | | SERVICES, CORE | PARK [...] [facility] | [address] | [place] [address] | | | SERVICES, SPECIAL | PARK [...] C PCR, | Undetected | Undetected, | [facility] | | | QUANT | | Undetected [...] | + + + + + | [facility] | [address], | [place] [address] | | | DIAGNOSTIC | [address] [...] + | [facility] | [address] | [place] [address] | | | [place] | | | [...] + | [facility] | [address] | [place] [address] | | | [place] | | | | + + + [...] + | [facility] | [address] | [place] [address] | | | [place] | | | [...] | + + + + + | [facility] - | [address] | [place] [address] | | | [place] | | | [...] by | | | | | | Digital Folio,[address] | | | | | | Pippa Sauceda, [facility] | | | | | | [address] | | | | | | [phone].[email or web address]. | | | | | | Faisal [...] | + + + + + | [facility] | [address] | [place], [place] | | | UN[facility] | | [address] | | + + + + + [...] + | [facility] | [address] | [place] [address] | | | [place] | | | | + + + [...] by | | | | | | [facility],[address] | | | | | | [place] | | | | | | [address] | | | | | | [phone].[email or web address]. | | | | | | Faisal [...] [facility] | [address] | [place], [place] | | | [facility] | | [address] | | + + + + + [...] [facility] | [address] | [place] [address] | | | SERVICES, CORE | PARK [...] + | [facility] | [address] | [place] [address] | | | SERVICES, CORE | PARK [...] | + +---------+ + + + | [facility] | No Donnello | | [facility] | | | | [...] | + + + + + | [facility] | [address] | [place] [address] | | | HOMERO LAN | LONG [...] [facility] | [address] | [place] [address] | | | SERVICES, CORE | PARK [...] + + | [facility] | [address] [facility] [facility] | [place] [address] | | | SERVICES, [facility] | [address] | | | + [...] | | | LABORATORY | | | THAI | | | SERVICES, | | | [...] | + + + + + | [facility] | [address] | [place] [address] | | | SERVICES, CORE | LONG [...]
--- OUTSIDE RECORDS SUMMARY | ~2018-07-18 | XMS | Encounter Summary ---
Demographics + + + | Address | [address] | | | [place] [address] | + + + | Home Phone [...] Author + + + | Author | [facility] | + + + | Organization | [facility] | + + + | Address | Unknown | + + + | Phone | Unavailable | + + + Support + + + + + | Name | Relationship | Address | Phone | + + + + + | Cory Weldon | ECON | [address] | | | | | [place] [address] | | + + + + + | Thania Mallory | ECON | [address] | | | | | [place] [address] | | + + + + + | Deidra Weldon | ECON | [address] | | | | | [place] | | | | | [address] | | + + + + + Care Team Providers + +------+ + | Care Roll Table Operator Name | Role | Phone | + +------+ + | Jonathan Alonso MD | PCP | | + +------+ + Reason for Visit + + + | Reason | Comments | + + + | Follow-up encounter | | + + + Encounter Details +--------+ + + + + | Date | Type | Department | Care Team | Description | +--------+ + + + + | 02/18/ | Telephone | Transplant | Kelsi Martinez, | Follow-up encounter | | 2015 | | Coordinators [address] | RN [address] | | | | | [facility] | [facility] | | | | | Road [place], [place] | [place], [place] | | | | | [address] | [address] | | | | | [phone] | | | +--------+ + + + [...] Denise | | | | | | [place] | | | | | | [address] | | | | | | [phone] | | | | | | | | +--------+ + + + + documented as of this encounter Visit Diagnoses Not on filedocumented in this encounter"
--- OUTSIDE RECORDS SUMMARY | ~2018-07-18 | XMS | Encounter Summary ---
Demographics + + + | Address | [address] | | | [place] [address] | + + + | Home Phone [...] Author + + + | Author | [facility] | + + + | Organization | [facility] | + + + | Address | Unknown | + + + | Phone | Unavailable | + + + Support + + + + + | Name | Relationship | Address | Phone | + + + + + | Cory Weldon | ECON | [address] | | | | | [place] [address] | | + + + + + | Thania Mallory | ECON | [address] | | | | | [place] [address] | | + + + + + | Deidra Weldon | ECON | [address] | | | | | [place] | | | | | [address] | | + + + + + Care Team Providers + +------+ + | Care Seed Corn Manager Production Name | Role | Phone | + [...] | 12/19/ | Documentati | Transplant | Mariza Hsu | Social Work | | 2013 | on | Coordinators [address] | [address] [facility] | Transplant | | | | [facility] | [facility] | Evaluation | | | | Road [place], [place] | [place], [place] | | | | | [address] | [address] | | | | | [phone] | | | +--------+ + + + [...] Denise | | | | | | [place] | | | | | | [address] | | | | | | [phone] | | | | | | | | +--------+ + + + + documented as of this encounter Visit Diagnoses Not on filedocumented in this encounter"
--- OUTSIDE RECORDS SUMMARY | ~2018-07-18 | XMS | Encounter Summary ---
Demographics + + + | Address | [address] | | | [place] [address] | + + + | Home Phone [...] | | | | | [place] [address] | | + + + + + | Thania Mallory | ECON | [address] | | | | | [place] [address] | | + + + + + | Deidra Weldon | ECON | [address] | | | | | [place] | | | | | [address] | | + + + + + Care Team Providers + +------+ + | Care Information Coder Name | Role | Phone | + +------+ + | No Pcp Per Patient | PCP | Unavailable | + +------+ + Reason for Visit + + + | Reason | Comments | + + + | Laboratory Test | | | Requested | | + + + Encounter Details +--------+ + + + + | Date | Type | Department | Care Team | Description | +--------+ + + + + | 02/10/ | Telephone | Transplant | Kelsi Martinez, | Laboratory Test | | 2013 | | Coordinators [address] | RN [address] | Requested | | | | [facility] | [facility] | | | | | Road [place], [place] | [place], [place] | | | | | [address] | [address] | | | | | [phone] | | | +--------+ + + + [...] [place] | | | | | | [address] | | | | | | [phone] | | | | | | | | +--------+ + + + + documented as of this encounter Visit Diagnoses Not on filedocumented in this encounter"
--- OUTSIDE RECORDS SUMMARY | ~2018-07-18 | XMS | Encounter Summary ---
Demographics + + + | Address | [address] | | | [place] [address] | + + + | Home Phone | | + + + | Preferred Language | Unknown | + + + | Marital Status | Single | + + + | Pentecostal Affiliation | Unknown | + + + | Race | White | + + + | Ethnic Group | Not or | + + + Author + + + | Author | [facility] | + + + | Organization | [facility] | + + + | Address | Unknown | + + + | Phone | Unavailable | + + + Support + + + + + | Name | Relationship | Address | Phone | + + + + + | Cory Weldon | ECON | [address] | | | | | [place] [address] | | + + + + + | Thania Mallory | ECON | [address] | | | | | [place] [address] | | + + + + + | Deidra Weldon | ECON | [address] | | | | | [place] | | | | | [address] | | + + + + + Care Team Providers + +------+ + | Care Windows Systems Administrator Name | Role | Phone | [...] | Sudhakar Joy | Other | | 2015 | | Nephrology at | MD Emanuel [address] | | | | | [place] | [facility] | | | | | [facility] | [place], [place] | | | | | [facility] | [address] | | | | | [facility] | [phone] | | | | | Mailcode: [id number] | | | | | | [place] | | | | | | [place], [place] | | | | | | [address] | | | | | | [phone] | | | +--------+ + + + [...] Denise | | | | | | [place] | | | | | | [address] | | | | | | [phone] | | | | | | | | +--------+ + + + + documented as of this encounter Visit Diagnoses Not on filedocumented in this encounter"
--- OUTSIDE RECORDS SUMMARY | ~2018-07-18 | XMS | Encounter Summary ---
Demographics + + + | Address | [address] | | | [place] [address] | + + + | Home Phone [...] Author + + + | Author | [facility] | + + + | Organization | [facility] | + + + | Address | Unknown | + + + | Phone | Unavailable | + + + Support + + + + + | Name | Relationship | Address | Phone | + + + + + | Cory Weldon | ECON | [address] | | | | | [place] [address] | | + + + + + | Thania Mallory | ECON | [address] | | | | | [place] [address] | | + + + + + | Deidra Weldon | ECON | [address] | | | | | [place] | | | | | [address] | | + + + + + Care Team Providers + +------+ + | Care Kennel Manager Name | Role | Phone | + +------+ + | Jonathan Alonso MD | PCP | | + +------+ + Reason for Visit + + + | Reason | Comments | + + + | Social work | pt potential donor/checking in with SW | | consultation | | + + + Encounter Details +--------+ + + + + | Date | Type | Department | Care Team | Description | +--------+ + + + + | 10/05/ | Telephone | Transplant | Mariza Hsu | Social work | | 2016 | | Coordinators [address] | [address] | consultation (pt | | | | [address] [place] | [address] [facility] [address] | potential | | | | Road [place], [place] | [place], [place] | donor/checking in | | | | [address] | [address] | with SW) | | | | [phone] | | | +--------+ + + + [...] Denise | | | | | | [place] | | | | | | [address] | | | | | | [phone] | | | | | | | | +--------+ + + + + documented as of this encounter Visit Diagnoses Not on filedocumented in this encounter"
--- OUTSIDE RECORDS SUMMARY | ~2018-07-18 | XMS | Encounter Summary ---
Demographics + + + | Address | [address] | | | [place] [address] | + + + | Home Phone [...] Author + + + | Author | [facility] | + + + | Organization | [facility] | + + + | Address | Unknown | + + + | Phone | Unavailable | + + + Support + + + + + | Name | Relationship | Address | Phone | + + + + + | Cory Weldon | ECON | [address] | | | | | [place] [address] | | + + + + + | Thania Mallory | ECON | [address] | | | | | [place] [address] | | + + + + + | Deidra Weldon | ECON | [address] | | | | | [place] | | | | | [address] | | + + + + + Care Team Providers + +------+ + | Care Companion Caregiver Name | Role | Phone | + [...] 2015 | erpretation | Cardiology at | [address] | disease (HCC) | | | | [place] | [facility] | (Primary Dx) | | | | [facility] | [place], [place] | | | | | [address] [facility] | [address] | | | | | [facility] | [phone] | | | | | Mailcode: [id number] | | | | | | [place] | | | | | | [place], [place] | | | | | | [address] | | | | | | [phone] | | | +--------+ + + + [...] Denise | | | | | | [place], [place] | | | | | | [address] | | | | | | [phone] | | | | | | | [...] | e | 1:18 PM | MEDICARE 1024 HSP | procedure are in the | | | | PST | ([facility] | results section. | | |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 | | | | | | Hemodialysis status | | | | | | ([facility]) Chronic | | | | | | kidney disease, | | | | | | stage V ([facility]) | | + +--------+ + + + documented in this encounter Visit Diagnoses + + | Diagnosis | + + | End-stage renal disease (HCC) - Primary End stage renal disease | + + documented in this encounter"
--- OUTSIDE RECORDS SUMMARY | ~2018-07-18 | XMS | Encounter Summary ---
Demographics + + + | Address | [address] | | | [place] [address] | + + + | Home Phone [...] Author + + + | Author | [facility] | + + + | Organization | [facility] | + + + | Address | Unknown | + + + | Phone | Unavailable | + + + Support + + + + + | Name | Relationship | Address | Phone | + + + + + | Cory Weldon | ECON | [address] | | | | | [place] [address] | | + + + + + | Thania Mallory | ECON | [address] | | | | | [place] [address] | | + + + + + | Deidra Weldon | ECON | [address] | | | | | [place] | | | | | [address] | | + + + + + Care Team Providers + +------+ + | Care Hand Bobbin Cleaner Name | Role | Phone | + [...] + + | 09/01/ | Documentati | Transplant | Kelsi Martinez, | Other (Planning | | 2014 | on | Coordinators [address] | RN [address] | ahead form) | | | | [address] [facility] | [facility] | | | | | Road [place], [place] | [place], [place] | | | | | [address] | [address] | | | | | [phone] | | | +--------+ + + + [...] Denise | | | | | | [place] | | | | | | [address] | | | | | | [phone] | | | | | | | | +--------+ + + + + documented as of this encounter Visit Diagnoses Not on filedocumented in this encounter"
--- OUTSIDE RECORDS SUMMARY | ~2018-07-18 | XMS | Encounter Summary ---
Demographics + + + | Address | [address] | | | [place] [address] | + + + | Home Phone [...] Author + + + | Author | [facility] | + + + | Organization | [facility] | + + + | Address | Unknown | + + + | Phone | Unavailable | + + + Support + + + + + | Name | Relationship | Address | Phone | + + + + + | Cory Weldon | ECON | [address] | | | | | [place] [address] | | + + + + + | Thania Mallory | ECON | [address] | | | | | [place] [address] | | + + + + + | Deidra Weldon | ECON | [address] | | | | | [place] | | | | | [address] | | + + + + + Care Team Providers + +------+ + | Care Van Cdl Driver Name | Role | Phone | + +------+ + PCP | Unavailable | + +------+ + Reason for Visit + + + | Reason | Comments | + + + | Peritonitis | | + + + Encounter Details +--------+ + + + + | Date | Type | Department | Care Team | Description | +--------+ + + + + | 07/15/ | Telephone | Pediatric | Sudhakar Joy | Peritonitis | | 2013 | | Nephrology at | MD Emanuel [address] | | | | | [place] | [facility] | | | | | [facility] | [place], [place] | | | | | [facility] | [address] | | | | | [facility] | [phone] | | | | | Mailcode: [id number] | | | | | | [place] | | | | | | [place], [place] | | | | | | [address] | | | | | | [phone] | | | +--------+ + + + [...] Denise | | | | | | [place] | | | | | | [address] | | | | | | [phone] | | | | | | | | +--------+ + + + + documented as of this encounter Visit Diagnoses Not on filedocumented in this encounter"
--- OUTSIDE RECORDS SUMMARY | ~2018-07-18 | XMS | Encounter Summary ---
Demographics + + + | Address | [address] | | | [place] [address] | + + + | Home Phone [...] Author + + + | Author | [facility] | + + + | Organization | [facility] | + + + | Address | Unknown | + + + | Phone | Unavailable | + + + Support + + + + + | Name | Relationship | Address | Phone | + + + + + | Cory Weldon | ECON | [address] | | | | | [place] [address] | | + + + + + | Thania Mallory | ECON | [address] | | | | | [place] [address] | | + + + + + | Deidra Weldon | ECON | [address] | | | | | [place] | | | | | [address] | | + + + + + Care Team Providers + +------+ + | Care Furniture Finisher Apprentice Name | Role | Phone | [...] + + | 02/18/ | Documentati | Transplant | Kelsi Martinez, | Committee Review | | 2013 | on | Coordinators [address] | RN [address] | Summary | | | | [facility] | [facility] | | | | | Road [place] | [place] | | | | | [address] | [address] | | | | | [phone] | | | +--------+ + + + [...] [place] | | | | | | [address] | | | | | | [phone] | | | | | | | | +--------+ + + + + documented as of this encounter Visit Diagnoses Not on filedocumented in this encounter"
--- OUTSIDE RECORDS SUMMARY | ~2018-07-18 | XMS | Encounter Summary ---
Demographics + + + | Address | [address] | | | [place] [address] | + + + | Home Phone | | + + + | Preferred Language | Unknown | + + + | Marital Status | Single | + + + | Jain Affiliation | Unknown | + + + | Race | Unknown | + + + | Ethnic Group | Unknown | + + + Author + + + | Author | [employer] | + + + | Organization | [facility] | + + + | Address [...] | | + + +---------+ + | Wilson De Guzman | ECON | Unknown | | + + +---------+ + Care Team Providers + +------+ + | Care Club Steward Name | Role | Phone | + +------+ + | Jonathan Alonso MD | PCP | | + +------+ + Reason for Visit +--------+ + | Reason | Comments | +--------+ + | Other | [facility] - most recent labs . | +--------+ + Encounter Details +--------+ + + + + | Date | Type | Department | Care Team | Description | +--------+ + + + + | 06/26/ | Documentati | ADIEL Hutchinson | Daniela Alejandre | Other ([place] | | 2018 | on Only | Cardiology Jessy | [facility]NA Castellanos | [facility] - | | | | [address] | | most recent labs .) | | | | [place] | | | | | | [address] | | | | | | [phone] | | | +--------+ + + + [...] + + + as of this encounter Plan of Treatment +--------+---------+ + + + | Date | Type | Specialty | Care Team | Description | +--------+---------+ + + + | 07/19/ | Office | Cardiology | Gretchen Teran | | | 2019 | Visit | | KRISHNA [address] | | | | | | [address] | | | | | | [facility] [place] [place] [place] [address] | | | | | | [phone] | | | | | | | | +--------+---------+ + + + as of this encounter Visit Diagnoses Not on filein this encounter"
--- OUTSIDE RECORDS SUMMARY | ~2018-07-18 | XMS | Encounter Summary ---
Demographics + + + | Address | [address] | | | [place] [address] | + + + | Home Phone | | + + + | Preferred Language | Unknown | + + + | Marital Status | Single | + + + | Rastafarian Affiliation | Unknown | + + + | Race | Unknown | + + + | Ethnic Group | Unknown | + + + Author + + + | Author | [facility] | | | and [place]ana | + + + | Organization | [facility] | [...] Team Providers + +------+ + | Care Work Car Operator Name | Role | Phone | + +------+ + | Jonatahn Alonso MD | PCP | | + [...] | | | | KIDNEY TRANSPLANT | [address] [place], | | | | | [address] [facility] [address] | | | | | [address] [place] | [phone] | | | | | [address] | | | | | | [phone] | | | +--------+ + + + [...] documented as of this encounter Progress Notes DeanneRoro bennett Brigitte - 07/03/2018 1512 PDTReferral We received another referral from [facility] today. However, we had clos [...] card. I also called the [facility] social insurance specialist, and let her know t hat Dara can be re-referred after she has her marijuana medicinal card. Electronically sig carlos by Roro Myles at 07/03/2018 15:17 PDTdocumented in this encounter Plan of Treatment Not on filedocumented as of this encounter Visit Diagnoses Not on filedocumented in this encounter"
--- OUTSIDE RECORDS SUMMARY | ~2018-07-18 | XMS | Encounter Summary ---
Demographics + + + | Address | [address] | | | [place] [address] | + + + | Home Phone [...] + + + | Author | [employer] | + + + | Organization | [facility] | + + + | [...] Team Providers + +------+ + | Care Change Management Manager Name | Role | Phone | + +------+ + | Jonathan Alonso MD | PCP | | + +------+ + Encounter Details +--------+ + + + + | Date | Type | Department | Care Team | Description | +--------+ + + + + | 06/25/ | Telephone | ADIEL Hutchinson | Doris Alvarenga MA | | | 2018 | | Cardiology [place] | | | | | | [address] | | | | | | [place] | | | | | | [address] | | | | | | [phone] | | | +--------+ + + + [...] Álvarez | | | | | | [place] [address] | | | | | | [phone] | | | | | | | | +--------+---------+ + + + as of this encounter Visit Diagnoses Not on filein this encounter"
--- OUTSIDE RECORDS SUMMARY | ~2018-07-18 | XMS | Encounter Summary ---
Demographics + + + | Address | [address] | | | [place] [address] | + + + | Home Phone [...] + + + | Author | [facility] [employer] | + + + | Organization | [facility] | + + + [...] Providers + +------+ + | Care Seed Production Field Supervisor Name | Role | Phone | + +------+ + | Jonathan Alonso MD | PCP | | + +------+ + Reason for Visit +--------+ + | Reason | Comments | +--------+ + | Other | [facility] | +--------+ + Encounter Details +--------+ + + + + | Date | Type | Department | Care Team | Description | +--------+ + + + + | 07/04/ | Documentati | ADIEL Hutchinson | Daniela Alejandre | [place] | | 2019 | on Only | Cardiology Jessy Castellanos MA | [facility] ) | | | | [address] | | | | | | [place] | | | | | | [address] | | | | | | [phone] | | | +--------+ + + + + Social History + +-------+ +--------+ + | Tobacco Use | Types | Packs/Day | Years | Date | | | | | Used | | + +-------+ +--------+ + | Former Smoker | | 0.5 | 2 | Quit: 06/28/2016 | + +-------+ +--------+ + + +---+---+---+ | Smokeless Tobacco: | | | | | Never Used | | | | + +---+---+---+ + + +---------+ + | Alcohol Use | Drinks/We | oz/Week | Comments | | | ek | | | + + +---------+ + | No | | | occassional | + + [...] Á[place] | | | | | | [place] [address] | | | | | | [phone] | | | | | | | | +--------+---------+ + + + as of this encounter Visit Diagnoses Not on filein this encounter"
--- OUTSIDE RECORDS SUMMARY | ~2018-07-18 | XMS | Encounter Summary ---
Demographics + + + | Address | [address] | | | [place] [address] | + + + | Home Phone [...] + + + | Author | [employer] [employer] | + + + | Organization | [facility] | + + + | [...] Team Providers + +------+ + | Care Gun Sealing Machine Operator Name | Role | Phone [...] Description | +--------+--------+ + + + | 06/29/ | Refill | [facility] | Stephanie Goodrich | Medication Refill | | 2018 | | Cardiology Jessy Obrien MA | | | | | [address] | | | | | | [place] | | | | | | [address] | | | | | | [phone] | | | +--------+--------+ + + + [...] [place] | | | | | | [place] [address] | | | | | | [phone] | | | | | | | | +--------+---------+ + + + as of this encounter Visit Diagnoses Not on filein this encounter"
--- OUTSIDE RECORDS SUMMARY | ~2018-07-18 | XMS | Encounter Summary ---
Demographics + + + | Address | [address] | | | [place] [address] | + + + | Home Phone [...] Author + + + | Author | [facility] | + + + | Organization | [facility] | + + + | Address | Unknown | + + + | Phone | Unavailable | + + + Support + + + + + | Name | Relationship | Address | Phone | + + + + + | Cory Weldon | ECON | [address] | | | | | [place] [address] | | + + + + + | Thania Mallory | ECON | [address] | | | | | [place] [address] | | + + + + + | Deidra Weldon | ECON | [address] | | | | | [place] | | | | | [address] | | + + + + + Care Team Providers + +------+ + | Care Banquet Chef Name | Role | Phone | + [...] | Sudhakar Joy | Other | | 2017 | | Nephrology at | MD Emanuel [address] | | | | | [place] | [facility] | | | | | [facility] | [place], [place] | | | | | [address] | [address] | | | | | [facility] | [phone] | | | | | Mailcode: DCH7 | | | | | | [place] | | | | | | [place], [place] | | | | | | [address] | | | | | | [phone] | | | +--------+ + + + [...] Denise | | | | | | [place] | | | | | | [address] | | | | | | [phone] | | | | | | | | +--------+ + + + + documented as of this encounter Visit Diagnoses Not on filedocumented in this encounter"
--- OUTSIDE RECORDS SUMMARY | ~2018-07-18 | XMS | Encounter Summary ---
Demographics + + + | Address | [address] | | | [place] [address] | + + + | Home Phone [...] + + + | Author | [facility] | + + + | Organization | [facility] | + + + | Address | Unknown | + + + | Phone | Unavailable | + + + Support + + + + + | Name | Relationship | Address | Phone | + + + + + | Cory Weldon | ECON | [address] | | | | | [place] [address] | | + + + + + | Thania Mallory | ECON | [address] | | | | | [place] [address] | | + + + + + | Deidra Weldon | ECON | [address] | | | | | [place] | | | | | [address] | | + + + + + Care Team Providers + +------+ + | Care Discharging Machine Operator Name | Role | Phone [...] | | | | | | [address] | | | | | | [facility] | | | | | | [place], [place] | | | | | | [address] | | | +--------+ + + + [...] Denise | | | | | | [place], [place] | | | | | | [address] | | | | | | [phone] | | | | | | | [...] + + | [facility] - | [address] | [place] [address] | | | IMMUNOGENETICS/TRANS | [address] | | | | [facility] | | | | + + + + + documented in this encounter Visit Diagnoses + + | Diagnosis | + + | End stage renal disease (HCC) End stage renal disease | + + documented in this encounter"
--- OUTSIDE RECORDS SUMMARY | ~2018-07-18 | XMS | Encounter Summary ---
Demographics + + + | Address | [address] | | | [place] [address] | + + + | Home Phone [...] | | | | | [place] [address] | | + + + + + | Thania Mallory | ECON | [address] | | | | | [place] [address] | | + + + + + | Deidra Weldon | ECON | [address] | | | | | [place] | | | | | [address] | | + + + + + Care Team Providers + +------+ + | Care State Game Warden Name | Role | Phone | + [...] Shun | ) | | | | [facility] | | | | | Road [place], [place] | [place], [place] | | | | | [address] | [address] | | | | | [phone] | | | +--------+ + + + [...] [facility] | | | | | | [address] | | | | | | [phone] | | | | | | | | +--------+ + + + + documented as of this encounter Visit Diagnoses Not on filedocumented in this encounter"
--- OUTSIDE RECORDS SUMMARY | ~2018-07-18 | XMS | Encounter Summary ---
Demographics + + + | Address | [address] | | | [place] [address] | + + + | Home Phone [...] | | | | | [place] [address] | | + + + + + | Thania Mallory | ECON | [address] | | | | | [place] [address] | | + + + + + | Deidra Weldon | ECON | [address] | | | | | [place] | | | | | [address] | | + + + + + Care Team Providers + +------+ + | Care Community Service Officer Coordinator Name | Role | Phone | [...] | RN [address] | Decision | | | | [address] [facility] | [facility] | | | | | Road [place], [place] | [place], [place] | | | | | [address] | [address] | | | | | [phone] | | | +--------+ + + + [...] Denise | | | | | | [place], [place] | | | | | | [address] | | | | | | [phone] | | | | | | | | +--------+ + + + + documented as of this encounter Visit Diagnoses Not on filedocumented in this encounter"
--- OUTSIDE RECORDS SUMMARY | ~2018-07-18 | XMS | Encounter Summary ---
Demographics + + + | Address | [address] | | | [place] [address] | + + + | Home Phone [...] Author + + + | Author | [facility] | + + + | Organization | [facility] | + + + | Address | Unknown | + + + | Phone | Unavailable | + + + Support + + + + + | Name | Relationship | Address | Phone | + + + + + | Cory Weldon | ECON | [address] | | | | | [place] [address] | | + + + + + | Thania Mallory | ECON | [address] | | | | | [place] [address] | | + + + + + | Deidra Weldon | ECON | [address] | | | | | [place] | | | | | [address] | | + + + + + Care Team Providers + +------+ + | Care Switch Tender Name | Role | Phone | [...] [place] | | | | | | [facility] | | | | | | [place], [place] | | | | | | [address] | | | +--------+ + + + [...] Denise | | | | | | [place], [place] | | | | | | [address] | | | | | | [phone] | | | | | | | [...] [facility] - | [address], | [place] [address] | | | IMMUNOGENETICS/TRANS | [address] | | | | PLANT LAB[facility]ATORY | | | | + + + + + documented in this encounter Visit Diagnoses Not on filedocumented in this encounter"
--- OUTSIDE RECORDS SUMMARY | ~2018-07-18 | XMS | Encounter Summary ---
Demographics + + + | Address | [address] | | | [place] [address] | + + + | Home Phone [...] | | | | | [place] [address] | | + + + + + | Thania Mallory | ECON | [address] | | | | | [place] [address] | | + + + + + | Deidra Weldon | ECON | [address] | | | | | [place] | | | | | [address] | | + + + + + Care Team Providers + +------+ + | Care Obstetric Assistant Name | Role | Phone | [...] - Renal | | | | [address] [facility] | [facility] | | | | | Road [place], [place] | [place], [place] | | | | | [address] | [address] | | | | | [phone] | | | +--------+ + + + [...] Denise | | | | | | [place], [place] | | | | | | [address] | | | | | | [phone] | | | | | | | [...]
--- OUTSIDE RECORDS SUMMARY | ~2018-07-18 | XMS | Encounter Summary ---
Demographics + + + | Address | [address] | | | [place] [address] | + + + | Home Phone [...] Author + + + | Author | [facility] | + + + | Organization | [facility] | + + + | Address | Unknown | + + + | Phone | Unavailable | + + + Support + + + + + | Name | Relationship | Address | Phone | + + + + + | Cory Weldon | ECON | [address] | | | | | [place] [address] | | + + + + + | Thania Mallory | ECON | [address] | | | | | [place] [address] | | + + + + + | Deidra Weldon | ECON | [address] | | | | | [place] | | | | | [address] | | + + + + + Care Team Providers + +------+ + | Care Project Administrator Name | Role | Phone | [...] | Transplant Status | | 2017 | | Coordinators [address] | RN [address] | Change (Close | | | | [address] [facility] | [facility] | referral) | | | | Road [place], [place] | [place], [place] | | | | | [address] | [address] | | | | | [phone] | | | +--------+ + + + [...] [facility] | | | | | | [address] | | | | | | [phone] | | | | | | | | +--------+ + + + + documented as of this encounter Visit Diagnoses Not on filedocumented in this encounter"
--- OUTSIDE RECORDS SUMMARY | ~2018-07-18 | XMS | Encounter Summary ---
Demographics + + + | Address | [address] | | | [place] [address] | + + + | Home Phone | | + + + | Preferred Language | Unknown | + + + | Marital Status | Single | + + + | Adventist Affiliation | Unknown | + + + | Race | Unknown | + + + | Ethnic Group | Unknown | + + + Author + + + | Author | [facility] | | | and [place]ana | + + + | Organization | [facility] | | | and [place] | + + + | Address | Unknown | + + + | Phone | Unavailable | + + + Support + + +---------+ + | Name | Relationship | Address | Phone | + + +---------+ + | Cory Weldon | ECON | Unknown | | + + +---------+ + | Deidra Weldno | ECON | Unknown | | + + +---------+ + | Thania Mallory | ECON | Unknown | | + + +---------+ + Care Team Providers + +------+ + | Care Pathologist Assistant Name | Role | Phone | [...] to | | | obtain one in [place]. I explained that we would have to [...] [address] [place] | [place] [address] | called her back to | | | | [address] | [phone] | complete intake | | | | [address] | | questionnaire. She | | | | [phone] | | currently ingests | | | [...] | | | | | one in [place]. I | | | | | | [...] she would have to obtain one in [place]. I explained that we would have to [...]
--- OUTSIDE RECORDS SUMMARY | ~2018-07-18 | XMS | Encounter Summary ---
Demographics + + + | Address | [address] | | | [place] [address] | + + + | Home Phone [...] | | | | | [place] [address] | | + + + + + | Thania Mallory | ECON | [address] | | | | | [place] [address] | | + + + + + | Deidra Weldon | ECON | [address] | | | | | [place] | | | | | [address] | | + + + + + Care Team Providers + +------+ + | Care Fuel Quality Tech Name | Role | Phone | [...] [place] | | | | | [address] | [facility], | | | | | [facility] | [place] [address] | | | | | [place], [place] | [phone] | | | | | [address] | | | +--------+ + + + [...] Denise | | | | | | [place], [place] | | | | | | [address] | | | | | | [phone] | | | | | | | | +--------+ + + + + documented as of this encounter Visit Diagnoses Not on filedocumented in this encounter"
--- OUTSIDE RECORDS SUMMARY | ~2018-07-18 | XMS | Encounter Summary ---
Demographics + + + | Address | [address] | | | [place] [address] | + + + | Home Phone [...] + + + | Author | [employer] | + + + | Organization | [facility] | + + + | [...] Team Providers + +------+ + | Care Scallop Cutter Machine Name | Role | Phone | + +------+ + | Tien Nicholson MD | PCP | | + +------+ + Reason for Visit + + + | Reason | Comments | + + + | Follow-up | 2 week | + + + Encounter Details +--------+---------+ + + + | Date | Type | Department | Care Team | Description | +--------+---------+ + + + | 06/28/ | Office | [facility] | Gretchen Teran | Acute on chronic | | 2019 | Visit | Cardiology Lucille | KRISHNA Hu[address]as [address] | combined systolic | | | | [address] | Shantelle Grissom F | and diastolic heart | | | | [facility] [address] | [place] [address] | failure (HCC) | | | | [place] [address] | [phone] | (Primary Dx); | | | | [phone] | | Non-rheumatic mitral | | | | | | regurgitation; | | | | | | Non-rheumatic | | | | | | tricuspid valve | | | | | | insufficiency; | | | | | | Moderate to severe | | | | | | pulmonary | | | | | | hypertension (HCC); | | | | | | 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 | | | | | | (HCC); ESRD on | | | | | | hemodialysis; | | | | | | Non-compliance; | | | | | | Anemia in chronic | | | | | | kidney disease, on | | | | | | chronic dialysis | | | | | | (HCC) | +--------+---------+ + + [...] + + + | Blood Pressure | 134/82 | 06/28/2018 12:12 PM PDT | + + + + | Pulse | 99 | 06/28/2018 12:12 PM PDT | + + + + | Temperature | - | - | + + + + | Respiratory Rate | 16 | 06/28/2018 12:12 PM PDT | + + + + | Oxygen Saturation | 93% | 06/28/2018 12:12 PM PDT | + + + + | Inhaled Oxygen | - | - | | Concentration | | | + + + + | Weight | 66 kg (145 lb 8 oz) | 06/28/2018 12:12 PM PDT | + + + + | Height | 170.2 cm (5' 7") | 06/28/2018 12:12 PM PDT | + + + + | Body Mass Index | 22.79 | 06/28/2018 12:12 PM PDT | + + + + in this encounter Instructions Patient Instructions - Jeffry LaxmiKRISHNA Huertas - 06/28/2018 12:30 PM PDT Please bring yo ur medications to all clinic visits to help me to help you Please write down your blood pressure and weight every day for me , and do first thing in t he morning, and write down blood pressure if having any problems I have increased your metoprolol XL to 50 mg daily, and take 2nd pill of 25 mg pill tonigh t, and then start taking metoprolol XL 50 mg at night from now on , and valsartan in the mor alexa. See me back in 2 weeks in this encounter Progress Notes Jeffry LaxmiKRISHNA - 06/28/2018 12:30 PM PDTFormatting of this note may be differen t from the original. Date of visit: 06/28/2018 Primary Care Physician: TIEN NICHOLSON CHIEF COMPLAINT: Chief Complaint Patient presents with Follow-up 2 week HISTORY OF PRESENT ILLNESS: Ms. Dara Weldon is a 23 year old woman who is here today to follow up on her respo nse to medication adjustments made for heart failure, and for titration of heart failure me dications. She is accompanied by her friend Taylor who contributed to history She is a patient of , who is her primary hvac/r instructor, and last seen by her June 14, 2018 for initial consult and hospital follow-up. Today, I reviewed all previous documentation available to me in electronic medical rei rd and from external sources. She has a history of stage renal disease on dialysis Monday with history of noncompliance with dialysis, congestive heart failure, and significant right pleural eff usion and abdominal ascites when hospitalized May 26-to June 01 at [facility] treated with th oracentesis and paracentesis, cardiomyopathy with EF of 25%, systolic and diastolic heart fa ilure, severe tricuspid regurgitation, mild to moderate mitral regurgitation, mild right ni tricular dysfunction, severe pulmonary hypertension,hypertension, anemia, and hyperkalemia s econdary to noncompliance with dialysis. She also has a history of chronic nicotine and THC addiction She is on daily Plavix to prevent AV fistula clotting off. When last seen by Dr. Mahmood she noted her EF had improved to 30-35% on most recent echo, and her plan was to optimize her heart failure therapies and repeat an echo in 3 months. If he r EF was still depressed, her plan was for coronary angiography/right heart cath, and may al so consider ICD therapy in the future. She stopped her Isordil and hydralazine and star wilmer her on valsartan 40 mg daily and continued metoprolol XL 25 mg daily. If she tolerates valsartan, she may switch her to Entresto in the future. Ms. Weldon is not currently being considered for kidney transplant from [facility] due to her non compliance with treatment and HD, and her renal disease is followed by mechanical inspector Dr. Anguiano. I also reviewed note from Dr. Camp at [facility] from April which documented a long con versation encouraging her to be compliant with dialysis treatments as noncompliance could le ad to a dilated cardiomyopathy and increase her all cause CV mortality and he thought she swanson d little insight into preventative health maintenance, her lifestyle change noted she was no t at all a candidate for transplant and at high risk for graft loss due to her immaturity an d lack of insight into her chronic kidney disease and she had declined formal counseling ses sions for her self destructive behavior. Her current and previous testing and procedures are detailed below. Since last seen she was seen in the emergency room on June 19, 2018 for chest pain wh ich had lasted 1-1/2 hours and note reviewed. Her labs done at the time showed a BMP of 320 0 and a troponin T of 0.168, which remained consistent throughout her stay in the emergency room and was thought to be chronically elevated, and her BUN was 43 with a creatinine of 6.3 5, but normal potassium of 4.7, elevated alk phos of 131, and elevated total bili of 1.5 mil d anemia. Was felt she was fluid overloaded secondary to needing to be dialyzed, and she wa s seen on a Monday night, and should have been dialyzed on the day before, she was noted to have a near whiteout of the entire right lung, similar from her emergency room visit on Jun. Her EKG performed at the time shows sinus tachycardia 115 bpm with similar morphology to previous EKG reviewed in her chart. Today she reports she has had no further episodes of chest pain since her emergency room vi sit, and she reports she did not miss any dialysis since last seen, but thinks they may have taken more fluid off her on her dialysis session after her emergency room visit. She reports her dry weight is 66 kg and she has been fairly consistently that weight with d ialysis. She reports today that she continues to have dyspnea with exertion, with occasional lighthe adedness, and is easily tired, but denies any palpitations or syncope. She reports she has remained quit smoking cigarettes, but still smokes about half a gram of marijuana daily, and is transitioning to oral cannabis, and is aware not recommended for he r health conditions. She denies any use of tena, or other recreational or illicit drugs. She is interested in getting a handicap parking sticker, she is often easily winded and short of breath if asked to walk any distance REVIEW OF SYSTEMS: Negative except for pertinent items noted in HPI. Constitutional: ongoing fatigue, denies unexplained weight loss. Appetite is poor. Dry weight is 66 kg for hemodialysis. Denies night sweats fevers or chills HENT: Denies nosebleeds. Denies hearing problems. Denies dysphagia Eyes: Denies visual disturbance or double vision. Respiratory/Sleep:: HOWARD. Occasional dry cough . asthma, uses prn nebulizer.Denies hemopty sis or excessive sputum production. Denies snoring, orthopnea, PND. Cardiovascular: Recent episode of chest pain, see HPI .denies palpitations and leg swelli ng. Denies history of rheumatic fever. Denies claudication . Gastrointestinal: Reports intermittent heartburn, ongoing nausea and vomiting often with he modialysis.. Occasional abdominal pain. denies blood in stool. Genitourinary: ESRD on dialysis Monday/ Monday/ Monday followed by Dr. Anguiano, and [facility] ( Dr. Camp) denies hematuria. Musculoskeletal:unknown bone disease: affects back , hips , and knees Denies myalgias, Skin: Denies color change. Reports previous rash to lower legs has left scarring . denies rash or lesions Neurological: Reports occasional lightheadedness denies history of stroke/Transient ischemi c attack.Denies history of seizures. Denies syncope and numbness. Hematological/Oncology . Bruises easily. Denies bleeding Denies history of cancer Endocrine: Denies diabetes or thyroid disease. Denies excessive thirst or hunger. Psychiatric/Behavioral: Reports situational anxiety and depression related to Multiple he alth issues.hx self destructive behavior and non compliance. Has previously declined skilled nursing facility counselor ing. Vaccines: Current on flu vaccine?. Current on pneumonia vaccine?. Habits/Social : history of smoking, quit 2017, half a pack a day x2 years?. Denies EtOH u se. Smokes 0.5 gm of cannabis daily, transitioning to oral. Denies other recreational or i llicit drug use. Lives in [place] [facility] Medications Prior to Visit Medication Sig Dispense Refill clopidogrel (PLAVIX) 75 MG tablet Take 75 mg by mouth daily. Indications: Treatment to Prevent a Blood Clot in a Vascular Stent ipratropium-albuterol (DUO-NEB) 0.5-2.5 mg/3mL Take 3 mLs by nebulization. ondansetron (ZOFRAN) 8 MG tablet Take 8 mg by mouth every 6 (six) hours as needed for N ausea. pantoprazole (PROTONIX) 40 MG tablet Take 1 tablet by mouth every morning before breakf ast for 60 days. 30 tablet 1 promethazine (PHENERGAN) 25 MG tablet Take 25 mg by mouth every 6 (six) hours as needed for Nausea. sevelamer (RENVELA) 800 MG tablet Take 2 tablets by mouth 3 (three) times daily with me als. 180 tablet 2 valsartan (DIOVAN) 40 MG tablet Take 1 tablet by mouth daily. 30 tablet 11 HYDROcodone-acetaminophen (NORCO) 5-325 MG per tablet Take 2 tablets by mouth nightly a s needed for Pain. metoprolol (TOPROL-XL) 25 MG 24 hr tablet Take 1 tablet by mouth daily. 30 tablet 2 No facility-administered medications prior to visit. PHYSICAL EXAM: Wt Readings from Last 3 Encounters: 06/28/18 66 kg (145 lb 8 oz) 06/14/18 68.3 kg (150 lb 8 oz) 06/01/18 67.2 kg (148 lb 2.4 oz) Temp Readings from Last 3 Encounters: 06/01/18 98.7 F (37.1 C) (Oral) 07/09/16 97.5 F (36.4 C) (Oral) 09/01/15 98.4 F (36.9 C) BP Readings from Last 3 Encounters: 06/28/18 134/82 06/14/18 126/80 06/01/18 (!) 137/96 Pulse Readings from Last 3 Encounters: 06/28/18 99 06/14/18 104 06/01/18 82 GENERAL: Thin pale young woman, in no distress. Appears approximately stated age. HEENT: Normocephalic, atraumatic. EYES: PERRL, EOM normal. MOUTH: Oral mucosae moist, dentition adequate, no lesions noted NECK: No JVD, lymphadenopathy, thyromegaly, bruits. Carotid pulses are 2+ bilaterally LUNGS/CHEST: Clear bilaterally, with no rales, rhonchi or wheezing noted, respirations unl abored HEART: Nondisplaced PMI, regular fast rate and rhythm, S1, S2 normal. 3/6 Murmur to LLB towards apex, and also 2/6 LLSB , No rubs or gallops noted. ABDOMEN: Distended nontender, no organomegaly, masses or bruits. Bowel sounds are normal in all 4 quadrants. The abdominal aortic pulsation is not palpable. EXTREMITIES: No edema. Radial pulses 2+ Right wrist only . Femoral pulses are 2+ bilater ally without bruits. DP and PT pulses are 2+ bilaterally. No clubbing. AV fistula left up per arm good bruit and thrill SKIN: Warm and dry, capillary refill is normal, no lesions. Reddish scaling and discolora tion to lower legs multiple tattoos NEUROLOGIC: Awake, alert and oriented x 3. No focal motor or sensory deficits. PSYCHIATRIC: Appropriate, affect appears normal DATA: Blood tests: Lab Results Component Value Date WBC 5.40 06/01/2018 RBC 2.95 (L) 06/01/2018 HGB 10.7 (L) 06/01/2018 HCT 32.4 (L) 06/01/2018 PLT 119 (L) 06/01/2018 Lab Results Component Value Date NA 139 06/01/2018 K 4.7 06/01/2018 CL 101 06/01/2018 CO2 33 (H) 06/01/2018 ANIONGAP 10 06/01/2018 GLUF 82 06/01/2018 BUN 27 (H) 06/01/2018 CREATININE 7.2 (H) 06/01/2018 BCR 4 06/01/2018 CA 9.7 06/01/2018 EGFR 7 (L) 06/01/2018 Lab Results Component Value Date GLUF 82 06/01/2018 Lab Results Component Value Date BNP 1,153.92 (H) 05/27/2018 CKTOTAL 291 (H) 05/26/2018 TSH 1.270 05/28/2018 CRP 5.1 (H) 05/28/2018 No results found for: METF, NMETFX, TFNMFX, [id number], [id number], TOTEPI CARDIAC PROCEDURES/IMAGING ECHO Last echo: 06/12/2018: ([facility]): Technically adequate study. Sinus rhythm. EF 30-35%. LV norm al in size with moderate LVH, moderate global hypokinesis of LV contractility. Severe diast olic dysfunction, grade 3. Paradoxical septal motion consistent with right ventricular volu me overload. Moderate RVE. Mild L AE. Moderate SOPHY. Aortic valve trileaflet, mild AI, no evidence of aortic stenosis. Mitral valve mildly thickened, moderate MR predominantly a po steriorly directed jet. Tricuspid valve normal, severe TR. Severe pulmonary hypertension, RVSP 67.65 mmHg pulmonic valve normal, mild KY. Moderate pericardial effusion near right at rium. No evidence of cardiac tamponade. IVC WNL, CVP 10-15. Flow patterns and pulmonary v eins indicate systolic blunting. Bowing of intra-arterial septum to the left consistent wit h elevated right-sided pressure Echo: 05/27/2018 ([facility]): Sinus rhythm. Technically adequate study. EF 20-25%. LV normal i n size with mild LVH, severe global hypokinesis of LV contractility. Septal flattening in d iastole consistent with RV volume overload. Moderate diastolic dysfunction, grade 2. Moder ate RVE, mildly impaired RV systolic function. LA WNL. RA moderately enlarged. Aortic fe ve trileaflet, mild AI, no evidence of aortic stenosis. Mild to moderate eccentric MR. Sev ere TR. Moderate pulmonary hypertension, RVSP 45mmHg. Non-coaptation of TV leaflets. Mild PI. No pericardial effusion. Pleural effusion. IVC dilated >2.5 cm, does not collapse wi th sniff, consistent with CVP 15 mmHg. Aortic root, ascending aorta, and aortic arch are no rmal. No mass, no clot Echo: 01/20/2015: [facility]: EF 73%. Normal in size. RV normal in size and systolic function. Normal size atria. Mitral valve normal, no mitral valve stenosis no MR. Tricuspid valve n ormal, trace TR. Aortic valve normal, no aortic valve stenosis or regurgitation. Ascending aorta, arch, and descending aorta WNL. Nn Pericardial effusion. No pulmonary hypertension, RVSP 17 mmHg plus RAP NON CARDIAC TESTING: PFT: 09/29/2009. And volumes normal. DLCO diffusion is low suggesting a diffusion defect, normal spirometry (report only) EKG/EVENT MONITOR EK03/07/2014: Normal sinus rhythm with sinus arrhythmia, low voltage QRS to limb leads. R ate 83 bpm, KY 144 ms, QRS 72 ms, QTC 437 ms, tracing personally reviewed by me. EKG 05/28/2018 : normal sinus rhythm, low voltage QRS except for V2. Poor R wave progressi on, nonspecific T wave abnormalities to inferolateral leads with mild T wave inversions V5, V6. Rate 75 bpm, KY 182 ms, QRS 84 ms, QTC 433 ms,tracing personally reviewed by me. EK06/19/2018: ([facility]): Sinus tachycardia, low voltage QRS to limb leads and V1. Rate 11 5 bpm, KY 154 ms, QRS 86 ms, QTC 473 ms. Tracing personally reviewed by me, and resolution of previous T wave inversions in V5 and V6 EK06/28/2018: ([facility]:) normal sinus rhythm, stable nonspecific T and ST wave abnormality. Rate 99 bpm, KY 162 ms, QRS 88 ms, QTC 477 ms tracing personally reviewed by jose d quarles, and similar morphology to EKG performed in the emergency room last week, except heart rat e better controlled, and ongoing resolution of previous T wave inversions in V5 and V6 LABS Labs: 05/31/2018: CMP: Sodium 139, potassium 4.3, chloride 99, glucose 81, BUN 19, creatinin e 5.6, albumin 3, total bili 0.9, alk phos 133, AST 134, ALT 299, GFR 9. CBC: WBC 5.4, RBC 2.95, hemoglobin 10.7, hematocrit 32.4, platelets 119 Labs: 06/01/2018: CMP: Sodium 139, potassium 4.7, chloride 101, CO2 33, glucose 82, BUN 27, creatinine 7.2, albumin 3, total bili 0.8, alk phos 138, AST 97, ALT 231, GFR 7 Labs: 06/20/2018: ([facility]): Troponin T 0.168, BNP 3200. CMP: Sodium 139, potassium 4.7, chl oride 97, glucose 98, BUN 43, creatinine 6.35, AST 22, ALT 822, alk phos 131, total bili 1.5 , GFR 8, albumin 4.2. CBC: WBC 5.3, RBC 3.18, hemoglobin 11.5, hematocrit 34.5, platelets 2 26. Labs: 06/26/2018: CMP: Sodium 142, potassium 4, chloride 99, glucose 87, BUN 43, creatinine 5.34, GFR 10, AST 28, ALT 36, alk phos 125, total bili 1.7, albumin 3.9. ASSESSMENT & PLAN: Dara was here today with her friend Coco to follow up on response to valsartan whic h Dr. Hurtado had started when she saw her last on June 14 for initiation of heart failure ther apy. She has multiple problems as detailed below. Her labs performed yesterday are detailed above and show an improved CMP with potassium nor mal at 4, normal electrolytes, and improved GFR of 10 with creatinine of 5.34, and liver enz ymes now normal for elevated total bili of 1.7. I reviewed her EKG performed in the clinic today with her, as well as her lab results. She reports she has tolerated valsartan 20 mg daily without any side effects, but reports s he still is having surges and her blood pressure. I also noted she had been quite tachycard ic when she was in the emergency room on June 19, and even today in the clinic her heart ra te is 99 bpm, and elevating quickly movement when I was auscultating her heart. I discussed with her and her friend 's plan to optimize her heart failure therapie s and repeat an Echo in 3 months. She is in agreement with this plan, and is willing to work closely with me to optimize her medications, and is currently compliant with regular dialysis. For her cardiac medications, I increased her metoprolol XL to 50 mg nightly, and told her to take the extra 25 mg tonight, and continue to take it nightly, and continued valsartan 40 mg which I told her to take in the morning to avoid hypotension and dizziness, and continue Plavix 75 mg daily to prevent AV fistula clotting off. I have asked for copies of her hemodialysis for the past month as well . I have also asked that she take her weight and blood pressure every morning when she get s up, or if she is having any symptoms to record the symptoms and her blood pressure at that time as well and to bring them to the next clinic visit. I have also asked that she bring all her medication bottles to all clinic visits. I will see her back in approximately 2 weeks to follow-up 1. Acute on chronic 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) 2. Non-rheumatic mitral regurgitation 3. Non-rheumatic tricuspid valve insufficiency 4. Moderate to severe pulmonary hypertension (HCC) 5. Dilated cardiomyopathy (HCC) 6. ESRD on hemodialysis 7. Non-compliance 8. Anemia in chronic kidney disease, on chronic dialysis (HCC) Orders Placed This Encounter Procedures Electrocardiogram, 12-lead The following portions of the patient's history were personally reviewed by me and updated as appropriate: EKG tracings, other specialty provider and PCP notes,any Hospital admission and discharge summaries, any ER records , current and previous cardiac testing and procedure reports and d juana, home heart rate and blood pressure log, medication bottles NOT brought to visit today Allergies, current medications.labs Family history, past medical history, past social history, past surgical history. Problem list. KRISHNA Zimmer [facility] Cardiology 06/28/2018in this encounter Plan of Treatment +--------+---------+ + + + | Date | Type | Specialty | Care Team | Description | +--------+---------+ + + + | 07/19/ | Office | Cardiology | Gretchen Teran | | | 2019 | Visit | | KRISHNA Huertas [address] | | | | | | [address] | | | | | | [place] [address] | | | | | | [phone] | | | | | | | | +--------+---------+ + + + as of this encounter Procedures + +--------+ + + + | Procedure Name | Priori | Date/Time | Associated Diagnosis | Comments | | | ty | | | | + +--------+ + + + | EKG STANDARD 12 LEAD | Routin | 06/28/2018 | Acute on chronic | Results for this | | | e | 12:17 PM | combined systolic | procedure are in the | | | | PDT | and diastolic heart | results section. | | | | | failure (HCC) | | | | | | Non-rheumatic mitral | | | | | | regurgitation | | | | | | Non-rheumatic | | | | | | tricuspid valve | | | | | | insufficiency | | | | | | Moderate to severe | | | | | | pulmonary | | | | | | hypertension (HCC) | | | | | | ESRD on hemodialysis | | | | | | Non-compliance | | | | | | Anemia in chronic | | | | | | kidney disease, on | | | | | | chronic dialysis | | | | | | (HCC) | | + +--------+ + + + in this encounter Results EK STANDARD 12 LEAD (06/28/2018 12:17 PM) + + + + + | Component | Value | Ref Range | Performed At | + + + + + | Ventricular Rate | 99 | BPM | [facility] | + + + + + | Atrial Rate | 99 | BPM | [facility] | + + + + + | P-R Interval | 162 | ms | [facility] | + + + + + | QRS Duration | 88 | ms | [facility] | + + + + + | Q-T Interval | 372 | ms | [facility] | + + + + + | QTC Calculation | 477 | ms | [facility] | | (Bezaung) | | | | + + + + + | Calculated P [place] | 45 | degrees | [facility] | + + + + + | Calculated R [place] | -7 | degrees | [facility] | + + + + + | Calculated T [place] | 104 | degrees | [facility] | + + + + + | Diagnosis | Please refer to | | [facility] | | | Providers office visit | | | | | note for Providers | | | | | Interpretation.Confirmed | | | | | by [facility] [place] Read Only, | | | | | [facility] [place] ([id number]), | | | | | supervising editor trailer Joey Phillips | | | | | [id number]) on 06/28/2018 | | | | | 1:01:23 PM | | | + + + + + + + + + + | Performing | Address | City/State/Zipcode | Phone Number | | Organization | | | | + + + + + | [facility] | [address] | [place] [address] | | + + + + + in this encounter Visit Diagnoses + + | Diagnosis | + + | Acute on chronic 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) - Primary | + + | Acute on chronic combined systolic and diastolic heart failure | + + | Non-rheumatic mitral regurgitation | + + | Non-rheumatic tricuspid valve insufficiency | + + | Tricuspid valve disorders, specified as nonrheumatic | + + | Moderate to severe pulmonary hypertension (HCC) | + + | Other chronic pulmonary heart diseases | + + | Dilated cardiomyopathy (HCC) | + + | Other primary cardiomyopathies | + + | ESRD on hemodialysis | + + | End stage renal disease | + + | Non-compliance | + + | Personal history of noncompliance with medical treatment, presenting hazards to health | + + | Anemia in chronic kidney disease, on chronic dialysis (HCC) | + +
--- OUTSIDE RECORDS SUMMARY | ~2018-07-18 | XMS | Encounter Summary ---
Demographics + + + | Address | [address] | | | [place] [address] | + + + | Home Phone [...] | | | | | [place] [address] | | + + + + + | Thania Mallory | ECON | [address] | | | | | [place] [address] | | + + + + + | Deidra Weldon | ECON | [address] | | | | | [place] | | | | | [address] | | + + + + + Care Team Providers + +------+ + | Care Plating Tank Operator Name | Role | Phone | + +------+ + | Jonathan Alonso MD | PCP | | + +------+ + Reason for Visit + + + | Reason | Comments | + + + | Lab Results | | + + + Encounter Details +--------+ + + + + | Date | Type | Department | Care Team | Description | +--------+ + + + + | 02/02/ | Telephone | Transplant | Kelsi Martinez, | Lab Results | | 2016 | | Coordinators [address] | RN [address] | | | | | [facility] | [facility] | | | | | Road [place], [place] | [place], [place] | | | | | [address] | [address] | | | | | [phone] | | | +--------+ + + + [...] Denise | | | | | | [place] | | | | | | [address] | | | | | | [phone] | | | | | | | | +--------+ + + + + documented as of this encounter Visit Diagnoses Not on filedocumented in this encounter"
--- OUTSIDE RECORDS SUMMARY | ~2018-07-18 | XMS | Encounter Summary ---
Demographics + + + | Address | [address] | | | [place] [address] | + + + | Home Phone [...] + | Author | [facility] | | | and Josephana | + + + | Organization | [facility] | | | and Josephana [...] Team Providers + +------+ + | Care Final Finisher Forging Dies Name | Role | Phone | + [...] | | KIDNEY TRANSPLANT | E[address], | | | | | [address] [facility] [address] | | | | | [address] [place] | [phone] | | | | | [address] | | | | | | [phone] | | | +--------+ + + + [...] + + documented as of this encounter Elodia Logan - 06/13/2018 1254 PDTerror documented in this encounter Plan of Treatment Not on filedocumented as of this encounter Visit Diagnoses Not on filedocumented in this encounter"
--- OUTSIDE RECORDS SUMMARY | ~2018-07-18 | XMS | Encounter Summary ---
Demographics + + + | Address | [address] | | | [place] [address] | + + + | Home Phone [...] Author | [facility] | | | and Josephana | + + + | Organization | [facility] | | | and [...] Team Providers + +------+ + | Care Photoengraving Printer Name | Role | Phone | + [...] + | 06/13/ | Telephone | KATHY UBRKETT | Meño Tran | Kidney Transplant | | 2019 | | [facility] | MD Linda [address] | Pre-evaluation | | | | KIDNEY TRANSPLANT | E[address], | | | | | [address] [facility] [address] | | | | | [address] [place] | [phone] | | | | | [address] | | | | | | [phone] | | | +--------+ + + + [...]
--- OUTSIDE RECORDS SUMMARY | ~2018-07-18 | XMS | Encounter Summary ---
Demographics + + + | Address | [address] | | | [place] [address] | + + + | Home Phone [...] | | | | | [place] [address] | | + + + + + | Thania Mallory | ECON | [address] | | | | | [place] [address] | | + + + + + | Deidra Weldon | ECON | [address] | | | | | [place] | | | | | [address] | | + + + + + Care Team Providers + +------+ + | Care Dianetic Counselor Name | Role | Phone | + [...] [address] | RN [address] | | | | | [address] [facility] | [facility] | | | | | Road [place], [place] | [place], [place] | | | | | [address] | [address] | | | | | [phone] | | | +--------+ + + + [...] Denise | | | | | | [place], [place] | | | | | | [address] | | | | | | [phone] | | | | | | | | +--------+ + + + + documented as of this encounter Visit Diagnoses Not on filedocumented in this encounter"
--- OUTSIDE RECORDS SUMMARY | ~2018-07-18 | XMS | Encounter Summary ---
Demographics + + + | Address | [address] | | | [place] [address] | + + + | Home Phone [...] + + + | Author | [facility] | + + + | Organization | [facility] | + + + | Address | Unknown | + + + | Phone | Unavailable | + + + Support + + + + + | Name | Relationship | Address | Phone | + + + + + | Cory Weldon | ECON | [address] | | | | | [place] [address] | | + + + + + | Thania Mallory | ECON | [address] | | | | | [place] [address] | | + + + + + | Deidra Weldon | ECON | [address] | | | | | [place] | | | | | [address] | | + + + + + [...] Denise | | | | | | [place], [place] | | | | | | [address] | | | | | | [phone] | | | | | | | | +--------+ + + + + documented as of this encounter Visit Diagnoses Not on filedocumented in this encounter"
--- OUTSIDE RECORDS SUMMARY | ~2018-07-18 | XMS | Encounter Summary ---
Demographics + + + | Address | [address] | | | [place] [address] | + + + | Home Phone [...] | | | | | [place] [address] | | + + + + + | Thania Mallory | ECON | [address] | | | | | [place] [address] | | + + + + + | Deidra Weldon | ECON | [address] | | | | | [place] | | | | | [address] | | + + + + + Care Team Providers + +------+ + | Care Construction Trades Contractor Name | Role | Phone | + [...] 2013 | | Coordinators [address] | [address] [facility] | Update | | | | [facility] | [facility] | | | | | Road [place], [place] | [place], [place] | | | | | [address] | [address] | | | | | [phone] | [phone] | | | | | | | [...] Denise | | | | | | [place], [place] | | | | | | [address] | | | | | | [phone] | | | | | | | | +--------+ + + + + documented as of this encounter Visit Diagnoses Not on filedocumented in this encounter"
--- OUTSIDE RECORDS SUMMARY | ~2018-07-18 | XMS | Encounter Summary ---
Demographics + + + | Address | [address] | | | [place] [address] | + + + | Home Phone | | + + + | Preferred Language | Unknown | + + + | Marital Status | Single | + + + | Tenriism Affiliation | Unknown | + + + | Race | White | + + + | Ethnic Group | Not or | + + + Author + + + | Author | [facility] | + + + | Organization | [facility] | + + + | Address | Unknown | + + + | Phone | Unavailable | + + + Support + + + + + | Name | Relationship | Address | Phone | + + + + + | Cory Weldon | ECON | [address] | | | | | [place] [address] | | + + + + + | Thania Mallory | ECON | [address] | | | | | [place] [address] | | + + + + + | Deidra Weldon | ECON | [address] | | | | | [place] | | | | | [address] | | + + + + + Care Team Providers + +------+ + | Care Ammonia Technician Name | Role | Phone | [...] consultation (f/u on | | | | [address] | [place] issues with | | | | Road [place], [place] | [place], [place] | pt's dad) | | | | [address] | [address] | | | | | [phone] | | | +--------+ + + + [...] [place] | | | | | | [address] | | | | | | [phone] | | | | | | | | +--------+ + + + + documented as of this encounter Visit Diagnoses Not on filedocumented in this encounter"
--- OUTSIDE RECORDS SUMMARY | ~2018-07-18 | XMS | Encounter Summary ---
Demographics + + + | Address | [address] | | | [place] [address] | + + + | Home Phone [...] Author + + + | Author | [facility] | + + + | Organization | [facility] | + + + | Address | Unknown | + + + | Phone | Unavailable | + + + Support + + + + + | Name | Relationship | Address | Phone | + + + + + | Cory Weldon | ECON | [address] | | | | | [place] [address] | | + + + + + | Thania Mallory | ECON | [address] | | | | | [place] [address] | | + + + + + | Deidra Weldon | ECON | [address] | | | | | [place] | | | | | [address] | | + + + + + Care Team Providers + +------+ + | Care Dairy Lab Technician Name | Role | Phone | [...] [address] | | | | | [address] | [facility] | | | | | [place] [address] | [place] [address] | | | | | | [phone] | | | | | | | [...] Denise | | | | | | [place], [place] | | | | | | [address] | | | | | | [phone] | | | | | | | | +--------+ + + + + documented as of this encounter Visit Diagnoses Not on filedocumented in this encounter"
--- OUTSIDE RECORDS SUMMARY | ~2018-07-18 | XMS | Encounter Summary ---
Demographics + + + | Address | [address] | | | [place] [address] | + + + | Home Phone [...] Author + + + | Author | [facility] | + + + | Organization | [facility] | + + + | Address | Unknown | + + + | Phone | Unavailable | + + + Support + + + + + | Name | Relationship | Address | Phone | + + + + + | Cory Weldon | ECON | [address] | | | | | [place] [address] | | + + + + + | Thania Mallory | ECON | [address] | | | | | [place] [address] | | + + + + + | Deidra Weldon | ECON | [address] | | | | | [place] | | | | | [address] | | + + + + + Care Team Providers + +------+ + | Care Cardiograph Operator Name | Role | Phone | [...] 2014 | | Coordinators [address] | [address] | (Care Everywher | | | | [address] [facility] | [facility] [address] | Query) | | | | Road [place], [place] | [place], [place] | | | | | [address] | [address] | | | | | [phone] | [phone] | | | | | | | [...] [place] | | | | | | [address] | | | | | | [phone] | | | | | | | | +--------+ + + + + documented as of this encounter Visit Diagnoses Not on filedocumented in this encounter"
--- OUTSIDE RECORDS SUMMARY | ~2018-07-18 | XMS | Encounter Summary ---
Demographics + + + | Address | [address] | | | [place] [address] | + + + | Home Phone [...] Author + + + | Author | [facility] | + + + | Organization | [facility] | + + + | Address | Unknown | + + + | Phone | Unavailable | + + + Support + + + + + | Name | Relationship | Address | Phone | + + + + + | Cory Weldon | ECON | [address] | | | | | [place] [address] | | + + + + + | Thania Mallory | ECON | [address] | | | | | [place] [address] | | + + + + + | Deidra Weldon | ECON | [address] | | | | | [place] | | | | | [address] | | + + + + + Care Team Providers + +------+ + | Care Sole Tier Name | Role | Phone | [...] + + | 01/17/ | Documentati | Transplant | Mariza Hsu | Social work | | 2012 | on | Coordinators [address] | [address] | consultation ([place] SW | | | | [address] [facility] | [facility] | follow-up on | | | | Road [place], [place] | [place], [place] | [place] | | | | [address] | [address] | care plan) | | | | [phone] | | | +--------+ + + + [...] Denise | | | | | | [place] | | | | | | [address] | | | | | | [phone] | | | | | | | | +--------+ + + + + documented as of this encounter Visit Diagnoses Not on filedocumented in this encounter"
--- OUTSIDE RECORDS SUMMARY | ~2018-07-18 | XMS | Encounter Summary ---
Demographics + + + | Address | [address] | | | [place] [address] | + + + | Home Phone [...] | | | | | [place] [address] | | + + + + + | Thania Mallory | ECON | [address] | | | | | [place] [address] | | + + + + + | Deidra Weldon | ECON | [address] | | | | | [place] | | | | | [address] | | + + + + + Care Team Providers + +------+ + | Care Shellfish Checker Name | Role | Phone | + [...] | on | Coordinators [address] | [place], [place] | | | | | [address] [place] | [address] | | | | | Road [place], [place] | | | | | | [address] | | | | | | [phone] | | | +--------+ + + + [...] [place] | | | | | | [address] | | | | | | [phone] | | | | | | | | +--------+ + + + + documented as of this encounter Visit Diagnoses Not on filedocumented in this encounter"
--- OUTSIDE RECORDS SUMMARY | ~2018-07-18 | XMS | Encounter Summary ---
Demographics + + + | Address | [address] | | | [place] [address] | + + + | Home Phone [...] | | | | | [place] [address] | | + + + + + | Thania Mallory | ECON | [address] | | | | | [place] [address] | | + + + + + | Deidra Weldon | ECON | [address] | | | | | [place] | | | | | [address] | | + + + + + Care Team Providers + +------+ + | Care Awake Overnight Monitor Name | Role | Phone | + [...] [address]un | | | | | [facility] | [facility] | | | | | Road [place], [place] | [place], [place] | | | | | [address] | [address] | | | | | [phone] | | | +--------+ + + + [...] Denise | | | | | | [place] | | | | | | [address] | | | | | | [phone] | | | | | | | | +--------+ + + + + documented as of this encounter Visit Diagnoses Not on filedocumented in this encounter"
--- OUTSIDE RECORDS SUMMARY | ~2018-07-18 | XMS | Encounter Summary ---
Demographics + + + | Address | [address] | | | [place] [address] | + + + | Home Phone [...] Author + + + | Author | [facility] | + + + | Organization | [facility] | + + + | Address | Unknown | + + + | Phone | Unavailable | + + + Support + + + + + | Name | Relationship | Address | Phone | + + + + + | Cory Weldon | ECON | [address] | | | | | [place] [address] | | + + + + + | Thania Mallory | ECON | [address] | | | | | [place] [address] | | + + + + + | Deidra Weldon | ECON | [address] | | | | | [place] | | | | | [address] | | + + + + + Care Team Providers + +------+ + | Care Manual Tester Name | Role | Phone | [...] 2012 | | Nephrology at | MD Ngozi Castellanos | f/u appt on | | | | [place] | [address] | 03/16/12 to [place]) | | | | [facility] | [place], [place] | | | | | [address] | [address] | | | | | [facility] | [phone] | | | | | Mailcode: DCH7 | | | | | | Alexander | | | | | | [place], [place] | | | | | | [address] | | | | | | [phone] | | | +--------+ + + + [...] Denise | | | | | | [place], [place] | | | | | | [address] | | | | | | [phone] | | | | | | | | +--------+ + + + + documented as of this encounter Visit Diagnoses Not on filedocumented in this encounter"
--- OUTSIDE RECORDS SUMMARY | ~2018-07-18 | XMS | Encounter Summary ---
Demographics + + + | Address | [address] | | | [place] [address] | + + + | Home Phone [...] Author + + + | Author | [facility] | + + + | Organization | [facility] | + + + | Address | Unknown | + + + | Phone | Unavailable | + + + Support + + + + + | Name | Relationship | Address | Phone | + + + + + | Cory Weldon | ECON | [address] | | | | | [place] [address] | | + + + + + | Thania Mallory | ECON | [address] | | | | | [place] [address] | | + + + + + | Deidra Weldon | ECON | [address] | | | | | [place] | | | | | [address] | | + + + + + Care Team Providers + +------+ + | Care Booking Officer Name | Role | Phone | + +------+ + PCP | Unavailable | + +------+ + Encounter Details +--------+ + + + + | Date | Type | Department | Care Team | Description | +--------+ + + + + | 04/09/ | Abstract | Pediatric | Sudhakar Joy | | | 2013 | | Nephrology at | MD Emanuel [address] | | | | | [place] | [facility] | | | | | [facility] | [place], [place] | | | | | [address] | [address] | | | | | [facility] | [phone] | | | | | Mailcode: DCH7 | | | | | | [place] | | | | | | [place], [place] | | | | | | [address] | | | | | | [phone] | | | +--------+ + + + [...] Denise | | | | | | [place], [place] | | | | | | [address] | | | | | | [phone] | | | | | | | | +--------+ + + + + documented as of this encounter Visit Diagnoses Not on filedocumented in this encounter"
--- OUTSIDE RECORDS SUMMARY | ~2018-07-18 | XMS | Encounter Summary ---
Demographics + + + | Address | [address] | | | [place] [address] | + + + | Home Phone [...] | | | | | [place] [address] | | + + + + + | Thania Mallory | ECON | [address] | | | | | [place] [address] | | + + + + + | Deidra Weldon | ECON | [address] | | | | | [place] | | | | | [address] | | + + + + + Care Team Providers + +------+ + | Care Mine Administrator Supervisor Name | Role | Phone | [...] 2012 | | Coordinators [address] | [address] [facility] | Update | | | | [address] [facility] | [facility] | | | | | Road [place], [place] | [place], [place] | | | | | [address] | [address] | | | | | [phone] | [phone] | | | | | | | [...] Denise | | | | | | [place], [place] | | | | | | [address] | | | | | | [phone] | | | | | | | | +--------+ + + + + documented as of this encounter Visit Diagnoses Not on filedocumented in this encounter"
--- OUTSIDE RECORDS SUMMARY | ~2018-07-18 | XMS | Encounter Summary ---
Demographics + + + | Address | [address] | | | [place] [address] | + + + | Home Phone [...] Author | [facility] | + + + | Organization | [facility] | + + + | Address | Unknown | + + + | Phone | Unavailable | + + + Support + + + + + | Name | Relationship | Address | Phone | + + + + + | Cory Weldon | ECON | [address] | | | | | [place] [address] | | + + + + + | Thania Mallory | ECON | [address] | | | | | [place] [address] | | + + + + + | Deidra Weldon | ECON | [address] | | | | | [place] | | | | | [address] | | + + + + + Care Team Providers + +------+ + | Care Fund Director Name | Role | Phone | + +------+ + | Shahid Camargo MD | PCP | Unavailable | + +------+ + Reason for Visit +--------+ + | Reason | Comments | +--------+ + | Other | Requested [id number] | +--------+ + Encounter Details +--------+ + + + + | Date | Type | Department | Care Team | Description | +--------+ + + + + | 11/15/ | Telephone | Transplant | Jesus Edmond, | Other (Requested | | 2012 | | Coordinators [address] | [address] [facility] | [id number]) | | | | [address] [facility] | [facility] | | | | | Road [place], [place] | [place], [place] | | | | | [address] | [address] | | | | | [phone] | [phone] | | | | | | | [...] Denise | | | | | | [place] | | | | | | [address] | | | | | | [phone] | | | | | | | | +--------+ + + + + documented as of this encounter Visit Diagnoses Not on filedocumented in this encounter"
--- OUTSIDE RECORDS SUMMARY | ~2018-07-18 | XMS | Encounter Summary ---
Demographics + + + | Address | [address] | | | [place] [address] | + + + | Home Phone [...] | | | | | [place] [address] | | + + + + + | Thania Mallory | ECON | [address] | | | | | [place] [address] | | + + + + + | Deidra Weldon | ECON | [address] | | | | | [place] | | | | | [address] | | + + + + + Care Team Providers + +------+ + | Care Extrusion Die Coordinator Name | Role | Phone | [...] | | | (HCC) [facility] | [address] | [address] | | | | | ([address] | [address] | [address] | | | | | nlein | [place], [place] | Mailcode: | | | | | purpura) | [address] | DC7S | | | | | nephritis | Phone: | [address] | | | | | Hemodialysis | [phone] | [place], [place] | | | | | status | Fax: | [address] | | | | | (HCC) | [phone] | Phone: | | | | | Chronic | | [phone] | | | | | kidney | | Fax: | | | | | disease, | | 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 | | | | | stage V [...] | | 2014 | Encounter | at [facility] [address] | | | | | | [address] | | | | | | Road Mailcode: | | | | | | [id number] [address] | | | | | | [place], [place] | | | | | | [address] | | | | | | [phone] | | | +--------+ + + + [...] Denise | | | | | | [place], [place] | | | | | | [address] | | | | | | [phone] | | | | | | | [...] | e | 1:18 PM | MEDICARE 8605 [facility] | procedure are in the | [...] 2:35 PM PST Echocardiography Laboratory | | [address] | | [place] [address] | | ; | | [id number] | | | | Transthoracic Echocardiogram Report | | | | | | NAME: DARA WELDON Study Date: 01/20/2015 1:18:29 PM | | Order #: [id number] ACC #: [id number] | | | | | | : [...] on 01/20/2015 at 2:35:17 PM | | Parking Inspector: YARITZA KLINE [facility] | | | | | | cc: | | | | | | Modes utilized | | TTE 83223; Spectral Doppler [id number]; Color flow Doppler 95220; | | | | | | | | Final | + + + + + + + | Performing | Address | City/State/Zipcode | Phone Number | | Organization | | | | + + + + + | [facility] | [address] | [place], [place] | | | CARDIOLOGY | [address] | [address] | | + + + + + [...]
--- OUTSIDE RECORDS SUMMARY | ~2018-07-18 | XMS | Encounter Summary ---
Demographics + + + | Address | [address] | | | [place] [address] | + + + | Home Phone [...] | | | | | [place] [address] | | + + + + + | Thania Mallory | ECON | [address] | | | | | [place] [address] | | + + + + + | Deidra Weldon | ECON | [address] | | | | | [place] | | | | | [address] | | + + + + + Care Team Providers + +------+ + | Care Enrollment Services Dean Name | Role | Phone | + [...] | | | | | [address] [facility] | [facility] | | | | | Road [place], [place] | [place], [place] | | | | | [address] | [address] | | | | | [phone] | | | +--------+ + + + [...] Denise | | | | | | [place], [place] | | | | | | [address] | | | | | | [phone] | | | | | | | | +--------+ + + + + documented as of this encounter Visit Diagnoses Not on filedocumented in this encounter"
--- OUTSIDE RECORDS SUMMARY | ~2018-07-18 | XMS | Encounter Summary ---
Demographics + + + | Address | [address] | | | [place] [address] | + + + | Home Phone [...] + + + + + | Cory Welodn | ECON | [address] | | | | | [place] [address] | | + + + + + | Thania Mallory | ECON | [address] | | | | | [place] [address] | | + + + + + | Deidra Weldon | ECON | [address] | | | | | [place] | | | | | [address] | | + + + + + Care Team Providers + +------+ + | Care Rod Machine Operator Name | Role | Phone [...] | Update | | | | [address] [facility] | [facility] | | | | | Road [place], [place] | [place], [place] | | | | | [address] | [address] | | | | | [phone] | | | +--------+ + + + [...] Denise | | | | | | [place], [place] | | | | | | [address] | | | | | | [phone] | | | | | | | | +--------+ + + + + documented as of this encounter Visit Diagnoses + + | Diagnosis | + + | 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
--- OUTSIDE RECORDS SUMMARY | ~2018-07-18 | XMS | Encounter Summary ---
Demographics + + + | Address | [address] | | | [place] [address] | + + + | Home Phone [...] | | | | | [place] [address] | | + + + + + | Thania Mallory | ECON | [address] | | | | | [place] [address] | | + + + + + | Deidra Weldon | ECON | [address] | | | | | [place] | | | | | [address] | | + + + + + Care Team Providers + +------+ + | Care Cognos Analyst Name | Role | Phone | [...] | renal | [address] | [address] [facility] | | | | | disease | Shun [place] | Elias Elizondo | | | | | (HCC) | Caro Chan | Dustin [place], | | | | | Allergic | [place], [place] | [place] | | | | | purpura | [address] | [address] | | | | | ([facility]) | Phone: | Phone: | | | | | | [phone] | [phone] | | | | | | Fax: | Fax: | | | | | | [phone] | [phone] | +--------+--------+ + + + + Encounter Details +--------+ + + + + | Date | Type | Department | Care Team | Description | +--------+ + + + + | 12/20/ | Hospital | Radiology at [facility] | | | | 2012 | Encounter | [address] | | | | | | [facility] | | | | | | Mailcode: L340 | | | | | | tayler | | | | | | [place], [place] | | | | | | [address] | | | | | | [phone] | | | +--------+ + + + [...] Denise | | | | | | [place], [place] | | | | | | [address] | | | | | | [phone] | | | | | | | [...] | | + +---------+ + + | [facility]PARTMENT OF | | | | | RADIOLOGY | | | | + +---------+ + + documented in this encounter Visit Diagnoses + + | Diagnosis | + + | 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
--- OUTSIDE RECORDS SUMMARY | ~2018-07-18 | XMS | Encounter Summary ---
Demographics + + + | Address | [address] | | | [place] [address] | + + + | Home Phone [...] | | | | | [place] [address] | | + + + + + | Thania Mallory | ECON | [address] | | | | | [place] [address] | | + + + + + | Deidra Weldon | ECON | [address] | | | | | [place] | | | | | [address] | | + + + + + Care Team Providers + +------+ + | Care Loader Technician Name | Role | Phone | [...] 2016 | | Coordinators [address] | [address] | questions) | | | | [address] [facility] | [facility] | | | | | Road [place], [place] | [place], [place] | | | | | [address] | [address] | | | | | [phone] | | | +--------+ + + + [...] Denise | | | | | | [place], [place] | | | | | | [address] | | | | | | [phone] | | | | | | | | +--------+ + + + + documented as of this encounter Visit Diagnoses Not on filedocumented in this encounter"
--- OUTSIDE RECORDS SUMMARY | ~2018-07-18 | XMS | Encounter Summary ---
Demographics + + + | Address | [address] | | | [place] [address] | + + + | Home Phone [...] Author + + + | Author | [facility] | + + + | Organization | [facility] | + + + | Address | Unknown | + + + | Phone | Unavailable | + + + Support + + + + + | Name | Relationship | Address | Phone | + + + + + | Cory Weldon | ECON | [address] | | | | | [place] [address] | | + + + + + | Thania Mallory | ECON | [address] | | | | | [place] [address] | | + + + + + | Deidra Weldon | ECON | [address] | | | | | [place] | | | | | [address] | | + + + + + Care Team Providers + +------+ + | Care Biochemistry Specialist Name | Role | Phone | [...] | | | | | Alexander | [facility] | | | | | [facility] | [place], [place] | | | | | [address] | [address] | | | | | [facility] | [phone] | | | | | Mailcode: DCH7 | | | | | | Alexander | | | | | | [place], [place] | | | | | | [address] | | | | | | [phone] | | | +--------+ + + + [...] Denise | | | | | | [place], [place] | | | | | | [address] | | | | | | [phone] | | | | | | | | +--------+ + + + + documented as of this encounter Visit Diagnoses Not on filedocumented in this encounter"
--- OUTSIDE RECORDS SUMMARY | ~2018-07-18 | XMS | Encounter Summary ---
Demographics + + + | Address | [address] | | | [place] [address] | + + + | Home Phone [...] | | | | | [place] [address] | | + + + + + | Thania Mallory | ECON | [address] | | | | | [place] [address] | | + + + + + | Deidra Weldon | ECON | [address] | | | | | [place] | | | | | [address] | | + + + + + Care Team Providers + +------+ + | Care Aircraft Painter Apprentice Name | Role | Phone | [...] | on | Coordinators [address] | [address] | (Education class) | | | | [address] [place] | [facility] | | | | | Road [place], [place] | [place], [place] | | | | | [address] | [address] | | | | | [phone] | | | +--------+ + + + [...] Denise | | | | | | [place] | | | | | | [address] | | | | | | [phone] | | | | | | | | +--------+ + + + + documented as of this encounter Visit Diagnoses Not on filedocumented in this encounter"
--- OUTSIDE RECORDS SUMMARY | ~2018-07-18 | XMS | Encounter Summary ---
Demographics + + + | Address | [address] | | | [place] [address] | + + + | Home Phone [...] | | | | | [place] [address] | | + + + + + | Thania Mallory | ECON | [address] | | | | | [place] [address] | | + + + + + | Deidra Weldon | ECON | [address] | | | | | [place] | | | | | [address] | | + + + + + Care Team Providers + +------+ + | Care Family Engagement Specialist Name | Role | Phone | [...] [address] | L [address] [facility] | Transplant | | | | [facility] | [facility] | Evaluation | | | | Road [place], [place] | [place], [place] | | | | | [address] | [address] | | | | | [phone] | | | +--------+ + + + [...] Denise | | | | | | [place] | | | | | | [address] | | | | | | [phone] | | | | | | | | +--------+ + + + + documented as of this encounter Visit Diagnoses Not on filedocumented in this encounter"
--- OUTSIDE RECORDS SUMMARY | ~2018-07-18 | XMS | Encounter Summary ---
Demographics + + + | Address | [address] | | | [place] [address] | + + + | Home Phone [...] Author + + + | Author | [facility] | + + + | Organization | [facility] | + + + | Address | Unknown | + + + | Phone | Unavailable | + + + Support + + + + + | Name | Relationship | Address | Phone | + + + + + | Cory Weldon | ECON | [address] | | | | | [place] [address] | | + + + + + | Thania Mallory | ECON | [address] | | | | | [place] [address] | | + + + + + | Deidra Weldon | ECON | [address] | | | | | [place] | | | | | [address] | | + + + + + Care Team Providers + +------+ + | Care Implementation Engineer Name | Role | Phone | [...] Shun | | | | | at [facility] | [facility] | | | | | [address] | [place] [address] | | | | | [facility] | | | | | | Mailcode: [id number] [facility] | | | | | | [facility] | | | | | | [facility], | | | | | | [place] [address] | | | | | | [phone] | | | +--------+ + + + [...] Denise | | | | | | [place], [place] | | | | | | [address] | | | | | | [phone] | | | | | | | [...] | e | 11:49 AM | MEDICARE 8343 | procedure are in the | | [...] view image for the detailed interpretation from [facility] results. | CARDIOLOGY | + + + + + | Procedure Note | + + | Interface, Cardiology Results - 12/21/2012 9:38 AM PDT Please click on view image | | for the detailed interpretation from [facility] results. | + + + + + + + | Performing | Address | City/State/Zipcode | Phone Number | | Organization | | | | + + + + + | [facility] | [address] | [place], [place] | | | CARDIOLOGY | [address] | [address] | | + + + + + documented in this encounter Visit Diagnoses + + | Diagnosis | + + | Allergic purpura- MEDICARE 0898 Allergic purpura | + + documented in this encounter
--- OUTSIDE RECORDS SUMMARY | ~2018-07-18 | XMS | Encounter Summary ---
Demographics + + + | Address | [address] | | | [place] [address] | + + + | Home Phone [...] Author + + + | Author | [facility] | + + + | Organization | [facility] | + + + | Address | Unknown | + + + | Phone | Unavailable | + + + Support + + + + + | Name | Relationship | Address | Phone | + + + + + | Cory Weldon | ECON | [address] | | | | | [place] [address] | | + + + + + | Thania Mallory | ECON | [address] | | | | | [place] [address] | | + + + + + | Deidra Weldon | ECON | [address] | | | | | [place] | | | | | [address] | | + + + + + Care Team Providers + +------+ + | Care Show Host Or Hostess Name | Role | Phone | [...] | | | | | [address] [facility] | [facility] | | | | | Road [place], [place] | [place], [place] | | | | | [address] | [address] | | | | | [phone] | | | +--------+ + + + [...] Denise | | | | | | [place], [place] | | | | | | [address] | | | | | | [phone] | | | | | | | | +--------+ + + + + documented as of this encounter Visit Diagnoses Not on filedocumented in this encounter"
--- OUTSIDE RECORDS SUMMARY | ~2018-07-18 | XMS | Encounter Summary ---
Demographics + + + | Address | [address] | | | [place] [address] | + + + | Home Phone [...] Author + + + | Author | [facility] | + + + | Organization | [facility] | + + + | Address | Unknown | + + + | Phone | Unavailable | + + + Support + + + + + | Name | Relationship | Address | Phone | + + + + + | Cory Weldon | ECON | [address] | | | | | [place] [address] | | + + + + + | Thania Mallory | ECON | [address] | | | | | [place] [address] | | + + + + + | Deidra Weldon | ECON | [address] | | | | | [place] | | | | | [address] | | + + + + + Care Team Providers + +------+ + | Care Washhouse Hand Name | Role | Phone | [...] | Kidney | Diagnoses | Rufino, | Mayito | | | | Transplant | End stage | Sudhakar Castellanos, | MD Jesus | | | | | renal | [address] | [address] | | | | | disease | [address] [place] | Elias Elizondo | | | | | (HCC) | Caro Chan | Dustin [place], | | | | | Allergic | [place], [place] | [place] | | | | | purpura | [address] | [address] | | | | | (HCC) | Phone: | Phone: | | | | | | [phone] | [phone] | | | | | | Fax: | Fax: | | | | | | [phone] | [phone] | +--------+--------+ + + + + Encounter Details +--------+---------+ + + + | Date | Type | Department | Care Team | Description | +--------+---------+ + + + | 12/19/ | Office | Kidney Transplant | Clinic, Ltx [address] | Patient on | | 2012 | Visit | at Physician's | [address] [facility] | peritoneal dialysis | | | | [facility] [address] [place], [place] | ([facility]) (Primary Dx); | | | | [facility] | [address] | Unspecified | | | | Road Mailcode: L590 | | essential | | | | Physicians | | hypertension; HSP | | | | [facility] [place], | | ([place] | | | | [place] [address]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; | | | | [phone] | | Obesity (BMI | | | [...] kidney failure[285.21] Obesity (BMI 30-39.9)[278.00] Comment: 65 1/" 224 lb BMI 36 Fever blister[054.9] Lips [...] on file Social History Narrative Lives in [place], [place] with father and step-mother; 2 dogs; [...] Transplant Selection Confer ence. El Starr MD logistics supervisor, Division of Abdominal Organ Transplantation Professor of Urology CC: Sudhakar Joy MD [address] [place] [address] documented in this encoun ter Plan of Treatment +--------+ + + + + | Date | Type | Specialty | Care Team | Description | +--------+ + + + + | 05/04/ | Hospital | Adult Acute Care | El Starr MD | | | 2022 | Encounter | | [address] | | | | | | [place], [place] | | | | | | [address] | | | | | | [phone] | | | | | | | [...] | Procedure Note | + + | Lamonte, Faculty - 02/04/2014 11:20 AM PST | [...]
--- OUTSIDE RECORDS SUMMARY | ~2018-07-18 | XMS | Encounter Summary ---
Demographics + + + | Address | [address] | | | [place] [address] | + + + | Home Phone [...] + + + | Author | [facility] | + + + | Organization | [facility] | + + + [...] Providers + +------+ + | Care Certified Physician Assistant Name | Role | Phone | [...] | [address] | [place], [place] | HF chronicity (HCC) | | | | [address] | [address] | (Primary Dx); | | | | [place] [address] | | Severe tricuspid | | | | [phone] | | regurgitation; | | | | | | Pulmonary HTN ([facility]); | | | | | | ESRD (end stage | | | | | | renal disease) ([facility]) | +--------+---------+ + + + Social History [...] may be different from th e jared. 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 MAIN OR; Service: Vascula r; Laterality: Left; cephalic AV FISTULA REPAIR Left 03/07/2014 Procedure: AV FISTULA - GRAFT REPAIR/REVISION; Surgeon: Rik Simon MD; Location: [facility] IN OR; Service: Vascular; Laterality: Left; DECLOT GRAFT Left 03/07/2014 Procedure: GRAFT - DECLOT; Surgeon: Rik Simon MD; Location: [facility] MAIN OR; Service: Vas cular; [...] - SUPERFICIALIZATION; Surgeon: Rik Simon MD; Location: [facility] MAIN OR; Service: Vascular; Laterality: Left; MEDICATIONS [...] 17. The mitral valve is normal. 18. Lkhk-sk-zcomxibi eccentric mitral regurgitation is present. 19. Severe [...] on HD. She recently presented to the [facility] after missing several dialysis sessions in CHF. [...] Gretchen Teran for heart failure therapy [facility]. Thank you for allowing me to participate [...] | | | | | [place] [address] | | | | | | [phone] | | | | | | | [...]
--- OUTSIDE RECORDS SUMMARY | ~2018-07-18 | XMS | Encounter Summary ---
Demographics + + + | Address | [address] | | | [place] [address] | + + + | Home Phone [...] | | | | | [place] [address] | | + + + + + | Thania Mallory | ECON | [address] | | | | | [place] [address] | | + + + + + | Deidra Weldon | ECON | [address] | | | | | [place] | | | | | [address] | | + + + + + Care Team Providers + +------+ + | Care Diagrammer And Seamer Name | Role | Phone | + [...] [address] | | | | | Alexander | [facility] | | | | | [facility] | [place], [place] | | | | | [address] | [address] | | | | | [facility] | | | | | | Mailcode: DCH7 | | | | | | Alexander | | | | | | [place], [place] | | | | | | [address] | | | | | | [phone] | | | +--------+ + + + [...] Denise | | | | | | [place], [place] | | | | | | [address] | | | | | | [phone] | | | | | | | | +--------+ + + + + documented as of this encounter Visit Diagnoses + + | Diagnosis | + + | 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
--- OUTSIDE RECORDS SUMMARY | ~2018-07-18 | XMS | Encounter Summary ---
Demographics + + + | Address | [address] | | | [place] [address] | + + + | Home Phone [...] | | | | | [place] [address] | | + + + + + | Thania Mallory | ECON | [address] | | | | | [place] [address] | | + + + + + | Deidra Weldon | ECON | [address] | | | | | [place] | | | | | [address] | | + + + + + Care Team Providers + +------+ + | Care Equity Analyst Name | Role | Phone | [...] | ) | | | | [address] [facility] | [facility] | | | | | Road [place], [place] | [place], [place] | | | | | [address] | [address] | | | | | [phone] | | | +--------+ + + + [...] [place] | | | | | | [address] | | | | | | [phone] | | | | | | | | +--------+ + + + + documented as of this encounter Visit Diagnoses Not on filedocumented in this encounter"
--- OUTSIDE RECORDS SUMMARY | ~2018-07-18 | XMS | Encounter Summary ---
Demographics + + + | Address | [address] | | | [place] [address] | + + + | Home Phone [...] + + + | Author | [facility] | + + + | Organization | [facility] | + + + [...] + | 06/12/ | Telephone | [place] | Carolina Mahmood DO | | | 2018 | | Cardiology [place] | [address] | | | | | [address] | [place], [place] | | | | | [place], [place] | [address] | | | | | [address] | | | | | | [phone] | | | +--------+ + + + [...] | | | | | [place] [address] | | | | | | [phone] | | | | | | | | +--------+---------+ + + + as of this encounter Visit Diagnoses Not on filein this encounter"
--- OUTSIDE RECORDS SUMMARY | ~2018-07-18 | XMS | Encounter Summary ---
Demographics + + + | Address | [address] | | | [place] [address] | + + + | Home Phone [...] | Author | [facility] | | | and Josephana | + + + | Organization | [facility] | | | and [...] + +------+ + | Care Sales Agent Protective Service Name | Role | Phone | [...] | | KIDNEY TRANSPLANT | [address] [place], | | | | | [address] [place] | [place] [address] | | | | | [address] [place] | [phone] | | | | | [address] | | | | | | [phone] | | | +--------+ + + + [...]
--- OUTSIDE RECORDS SUMMARY | ~2018-07-18 | XMS | Encounter Summary ---
Demographics + + + | Address | [address] | | | [place] [address] | + + + | Home Phone [...] Author + + + | Author | [facility] | + + + | Organization | [facility] | + + + | Address | Unknown | + + + | Phone | Unavailable | + + + Support + + + + + | Name | Relationship | Address | Phone | + + + + + | Cory Weldon | ECON | [address] | | | | | [place] [address] | | + + + + + | Thania Mallory | ECON | [address] | | | | | [place] [address] | | + + + + + | Deidra Weldon | ECON | [address] | | | | | [place] | | | | | [address] | | + + + + + Care Team Providers + +------+ + | Care Aoc Airspace Control Officer Name | Role | Phone | [...] with [facility]) | | | | Road [place], [place] | [place], [place] | | | | | [address] | [address] | | | | | [phone] | | | +--------+ + + + [...] Denise | | | | | | [place] | | | | | | [address] | | | | | | [phone] | | | | | | | | +--------+ + + + + documented as of this encounter Visit Diagnoses Not on filedocumented in this encounter"
--- OUTSIDE RECORDS SUMMARY | ~2018-07-18 | XMS | Encounter Summary ---
Demographics + + + | Address | [address] | | | [place] [address] | + + + | Home Phone [...] | | | | | [place] [address] | | + + + + + | Thania Mallory | ECON | [address] | | | | | [place] [address] | | + + + + + | Deidra Weldon | ECON | [address] | | | | | [place] | | | | | [address] | | + + + + + Care Team Providers + +------+ + | Care Legal Coordinator Name | Role | Phone | [...] Recommendations | | | | Alexander | [facility] | | | | | [facility] | [place], [place] | | | | | [address] | [address] | | | | | [facility] | [phone] | | | | | Mailcode: DCH7 | | | | | | Alexander | | | | | | [place], [place] | | | | | | [address] | | | | | | [phone] | | | +--------+ + + + [...] Denise | | | | | | [place] | | | | | | [address] | | | | | | [phone] | | | | | | | | +--------+ + + + + documented as of this encounter Visit Diagnoses Not on filedocumented in this encounter"
--- OUTSIDE RECORDS SUMMARY | ~2018-07-18 | XMS | Encounter Summary ---
Demographics + + + | Address | [address] | | | [place] [address] | + + + | Home Phone [...] Author + + + | Author | [facility] | + + + | Organization | [facility] | + + + | Address | Unknown | + + + | Phone | Unavailable | + + + Support + + + + + | Name | Relationship | Address | Phone | + + + + + | Cory Weldon | ECON | [address] | | | | | [place] [address] | | + + + + + | Thania Mallory | ECON | [address] | | | | | [place] [address] | | + + + + + | Deidra Weldon | ECON | [address] | | | | | [place] | | | | | [address] | | + + + + + Care Team Providers + +------+ + | Care Block And Case Maker Name | Role | Phone | [...] | [address] | [facility] | | | | | [place] [address] | [place] [address] | | | | | | [phone] | | | | | | | [...] Denise | | | | | | [place], [place] | | | | | | [address] | | | | | | [phone] | | | | | | | | +--------+ + + + + documented as of this encounter Visit Diagnoses Not on filedocumented in this encounter"
--- OUTSIDE RECORDS SUMMARY | ~2018-07-18 | XMS | Encounter Summary ---
Demographics + + + | Address | [address] | | | [place] [address] | + + + | Home Phone [...] | | | | | [place] [address] | | + + + + + | Thania Mallory | ECON | [address] | | | | | [place] [address] | | + + + + + | Deidra Weldon | ECON | [address] | | | | | [place] | | | | | [address] | | + + + + + Care Team Providers + +------+ + | Care Intelligence Consultant Name | Role | Phone | [...] | | | | | Alexander | [facility] | | | | | [facility] | [place], [place] | | | | | [address] | [address] | | | | | [facility] | | | | | | Mailcode: DCH7 | | | | | | Alexander | | | | | | [place], [place] | | | | | | [address] | | | | | | [phone] | | | +--------+ + + + [...] Denise | | | | | | [place], [place] | | | | | | [address] | | | | | | [phone] | | | | | | | | +--------+ + + + + documented as of this encounter Visit Diagnoses + + | Diagnosis | + + | 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
--- OUTSIDE RECORDS SUMMARY | ~2018-07-18 | XMS | Encounter Summary ---
Demographics + + + | Address | [address] | | | [place] [address] | + + + | Home Phone [...] | | | | | [place] [address] | | + + + + + | Thania Mallory | ECON | [address] | | | | | [place] [address] | | + + + + + | Deidra Weldon | ECON | [address] | | | | | [place] | | | | | [address] | | + + + + + Care Team Providers + +------+ + | Care Railroad Purchasing Agent Name | Role | Phone | [...] Shun | Transplant | | | | [facility] | [facility] | Evaluation | | | | Road [place], [place] | [place], [place] | (pre-listing | | | | [address] | [address] | pediatric [place] [address] | | | | [phone] | | update) | +--------+ + + [...] Denise | | | | | | [place], [place] | | | | | | [address] | | | | | | [phone] | | | | | | | | +--------+ + + + + documented as of this encounter Visit Diagnoses Not on filedocumented in this encounter"
--- OUTSIDE RECORDS SUMMARY | ~2018-07-18 | XMS | Encounter Summary ---
Demographics + + + | Address | [address] | | | [place] [address] | + + + | Home Phone [...] + + + | Author | [facility] | + + + | Organization | [facility] | + + + | Address | Unknown | + + + | Phone | Unavailable | + + + Support + + + + + | Name | Relationship | Address | Phone | + + + + + | Cory Weldon | ECON | [address] | | | | | [place] [address] | | + + + + + | Thania Mallory | ECON | [address] | | | | | [place] [address] | | + + + + + | Deidra Weldon | ECON | [address] | | | | | [place] | | | | | [address] | | + + + + + Care Team Providers + +------+ + | Care Industrial Maintenance Instructor Name | Role | Phone | [...] | renal | [address] [facility] | | | | | disease | Shun Griffin | Elias Elizondo | | | | | (HCC) | Caro Chan | [place], | | | | | Allergic | [place], [place] | [place] | | | | | purpura | [address] | [address] | | | | | ([facility]) | Phone: | Phone: | | | | | | [phone] | [phone] | | | | | | Fax: | Fax: | | | | | | [phone] | [phone] | +--------+--------+ + + + + Encounter Details +--------+ + + + + | Date | Type | Department | Care Team | Description | +--------+ + + + + | 12/20/ | Hospital | Radiology at [facility] | | | | 2012 | Encounter | [address] | | | | | | [facility] | | | | | | Mailcode: [id number] | | | | | | tayler | | | | | | [place], [place] | | | | | | [address] | | | | | | [phone] | | | +--------+ + + + [...] Denise | | | | | | [place], [place] | | | | | | [address] | | | | | | [phone] | | | | | | | [...] | | + +---------+ + + | [facility] DEPARTMENT OF | | | | | RADIOLOGY | | | | + +---------+ + + documented in this encounter Visit Diagnoses + + | Diagnosis | + + | 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
--- OUTSIDE RECORDS SUMMARY | ~2018-07-18 | XMS | Encounter Summary ---
Demographics + + + | Address | [address] | | | [place] [address] | + + + | Home Phone [...] | | | | | [place] [address] | | + + + + + | Thania Mallory | ECON | [address] | | | | | [place] [address] | | + + + + + | Deidra Weldon | ECON | [address] | | | | | [place] | | | | | [address] | | + + + + + Care Team Providers + +------+ + | Care Call Or Contact Centre Team Leader Name | Role | Phone | [...] | RN [address] | list) | | | | [facility] | [facility] | | | | | Road [place], [place] | [place], [place] | | | | | [address] | [address] | | | | | [phone] | | | +--------+ + + + [...] Denise | | | | | | [place] | | | | | | [address] | | | | | | [phone] | | | | | | | | +--------+ + + + + documented as of this encounter Visit Diagnoses Not on filedocumented in this encounter"
--- OUTSIDE RECORDS SUMMARY | ~2018-07-18 | XMS | Encounter Summary ---
Demographics + + + | Address | [address] | | | [place] [address] | + + + | Home Phone [...] + + + | Author | [facility] [employer] | + + + | Organization | [facility] | + + + | [...] Providers + +------+ + | Care Testing Lead Name | Role | Phone | + +------+ + | Jonathan Alonso MD | PCP | | + +------+ + Reason for Visit +--------+ + | Reason | Comments | +--------+ + | Other | [facility] 06/12/18 | +--------+ + Encounter Details +--------+ + + + + | Date | Type | Department | Care Team | Description | +--------+ + + + + | 06/28/ | Documentati | [facility] Hutchinson | Doris Alvarenga MA | Other ([facility] | | 2019 | on Only | Cardiology [facility] | | ED & Testing | | | | [address] | | 06/12/18) | | | | [address] | | | | | | [place] [address] | | | | | | [phone] | | | +--------+ + + + [...] | | | | | [place] [address] | | | | | | [phone] | | | | | | | | +--------+---------+ + + + as of this encounter Visit Diagnoses Not on filein this encounter"
--- OUTSIDE RECORDS SUMMARY | ~2018-07-18 | XMS | Clinical Summary ---
Demographics + + + | Address | [address] | | | [place] [address] | + + + | Home Phone [...] + + + | Author | [employer] | + + + | Organization | [facility] | + + + | Address | Unknown | + + + | Phone | Unavailable | + + + Support + + +---------+ + | Name | Relationship | Address | Phone | + + +---------+ + | Cory Louise | ECON | Unknown | | + + +---------+ + | Thania Mallory | ECON | Unknown | | + + +---------+ + | Saundra Mallory | ECON | Unknown | | + + +---------+ + | Wilson De Guzman | ECON | Unknown | | + + +---------+ + Care Team Providers + +------+ + | Care Actuarial Director Name | Role | Phone | + +------+ + | Tien Alonso MD | PP | | + [...] + + +--------+---------+------+------+-------+ | ondansetron | Take 8 mg by mouth | | | | | Activ | | (ZOFRAN) 8 MG tablet | [...] | | | + + +--------+---------+------+------+-------+ | promethazine | Take 25 mg by mouth | | | | | Activ | | (PHENERGAN) 25 MG | every 6 (six) hours | | | | | e | | tablet | as needed for | | | | | | | | Nausea. | | | | | | + + +--------+---------+------+------+-------+ | valsartan (DIOVAN) | Take 1 tablet by | 30 | 11 | 06/04 | 06/04 | Activ | | 40 MG tablet | mouth daily. | tablet | | 03/25 | 0/20 | e | | | | | | 19 | 20 | | + + +--------+---------+------+------+-------+ | metoprolol | Take 2 tablets by | 60 | 11 | 04/2 | 04/2 | Activ | | (TOPROL-XL) 25 MG 24 | mouth daily. | tablet | | 5/20 | 4/20 | e | | hr tablet | | | | 19 | 20 | | + + +--------+---------+------+------+-------+ | | Take 2 tablets by | | | | 04/2 | Disco | | HYDROcodone-acetamin | mouth nightly as | | | | 5/20 | ntinu | | ophen (NORCO) 5-325 | needed for Pain. | | | | 19 | ed | | MG per tablet | | | | | | | + + +--------+---------+------+------+-------+ | metoprolol | Take 1 tablet by | 30 | 2 | 03/3 | 04/2 | Disco | | (TOPROL-XL) 25 MG 24 | mouth daily. | tablet | | 0/20 | 5/20 | ntinu | | hr tablet | | | | 19 | 19 | ed | + + +--------+---------+------+------+-------+ Active Problems + + + | Problem | Noted Date | + + + | Dilated cardiomyopathy [...] | + + + | HSP (Jada Schjulio purpura) | 08/01/2014 | + + + | ESRD on hemodialysis | 08/01/2014 | + + + | History of peritonitis | 07/29/2013 | + + + + + | Overview: Overview: Due to MSSA. Had tunneled infection as | | well. PD catheter removed in July 2013. On Keflex till 08/01/13. | |On Keflex till 08/01/13. | + + + + + | Anemia in chronic kidney disease | 05/17/2012 | + + + Resolved Problems + + + + | Problem | Noted | Resolved | | | Date | Date | + + + + | Acute systolic CHF (congestive heart failure) ([facility]) | 05/29/19 | | | | 19 | 9 | + + + + | Chronic systolic heart failure (HCC) | 05/28/19 | | | | 19 | 9 | + + + + Encounters +--------+ + + + + | Date | Type | Specialty | Care Team | Description | +--------+ + + + + | 07/04/ | Documentati | | Daniela Alejandre | Lamonte Phillips | 2018 | on Only | | ORIANA Castellanos | [facility] - LABS ) | +--------+ + + + + | 06/29/ | Refill | | Stephanie Goodrich | Medication Refill | | 2018 | | | ORIANA Obrien | | +--------+ + + + + | 06/28/ | Office | | Gretchen Teran | Acute on chronic | | 2019 | Visit | | KRISHNA Huertas | 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 | | | | | | failure (HCC) | | | | | | (Primary Dx); | | | | | | Non-rheumatic [...] | | | | | ([facility]); ESRD on | | | | | | hemodialysis; | | | | | | Non-compliance; | | | | | | Anemia in chronic | | | | | | kidney disease, on | | | | | | chronic dialysis | | | | | | (HCC) | +--------+ + + + + | 06/28/ | Documentati | | Doris Alvarenga MA | Labs Only ([facility] | | 2019 | on Only | | | Labs 06/20/2018) | +--------+ + + + + | 06/28/ | Documentati | | Doris Alvarenga MA | Other ([facility] | | 2018 | on Only | | | ED & Testing | | | | | | 06/19/18) | +--------+ + + + + | 06/28/ | Documentati | | Doris Alvarenga MA | Other ([facility] | | 2018 | on Only | | | ED & Testing | | | | | | 06/12/18) | +--------+ + + + + | 06/27/ | Documentati | | Romero Talamantes Only | | 2018 | on Only | | ABRIL Martínez | | +--------+ + + + + | 06/26/ | Documentati | | Daniela Alejandre | Other ([facility] | | 2019 | on Only | | ORIANA Castellanos | [facility] - | | | | | | most recent labs .) | +--------+ + + + + | 06/25/ | Telephone | | Doris Alvarenga MA | | | 2019 | | | | | +--------+ + + + + | 06/14/ | Office | | Carolina Mahmood DO | Systolic heart | | 2018 | Visit | | | failure, unspecified | | | | | | HF chronicity ([facility]) | | | | | | (Primary Dx); | | | | | | Severe tricuspid | | | | | | regurgitation; | | | | | | Pulmonary HTN ([facility]); | | | | | | ESRD (end stage | | | | | | renal disease) ([facility]) | +--------+ + + + + | 06/12/ | Ancillary | | Tien Alonso, | Dyspnea, unspecified | | 2018 | Procedure | | MD | type | +--------+ + + + + | 06/12/ | Telephone | | Carolina Mahmood DO | | | 2018 | | | | | +--------+ + + + + | 06/12/ | Ancillary | | Tien Alonso, | Dyspnea, unspecified | | 2018 | Orders | | MD | type | +--------+ + + + + | 05/26/ | Hospital | | Aneudy Hunter, | Pleural effusion on | | 2018 - | Encounter | | Mayco Mabry MD | right (Primary Dx); | | | | | Javy Figueroa MD | Chest pain, | | 06/01/ | | | Darell Kowalski MD | unspecified type; | | 2018 | | | | Other ascites; Acute | | | | | | respiratory | | | | | | distress; End-stage | | | | | | renal disease on | | | | | | hemodialysis ([facility]); | | | | | | Hyperkalemia; | | | | | | Hyperphosphatemia; | | | | | | At high risk for | | | | | | electrolyte | | | | | | imbalance; Acute | | | | | | systolic CHF | | | | | | (congestive heart | | | | | | failure) ([facility]); | | | | | | Hypoalbuminemia; | | | | | | Anemia in ESRD | | | | | | (end-stage renal | | | | | | disease) ([facility]); ESRD | | | | | | on hemodialysis | +--------+ + + + + +---+ + | | Discharge | | | Summaries | | | - Flo, | | | Darell Scott, MD | | | - | | | 06/01/2018 | | | 9:59 AM | | | PDT | | | Formatting | | | of this | | | note may be | | | different | | | from the | | | original.[facility] | | | ce: | | | Hospitalist | | | Physician | | | Discharge | | | Summary Pt: | | | Dara R | | | [place] | | | AGE/SEX: 23 | | | y.o. | | | female | | | MRN: | | | [id number] | | | OM: | | | [id number] | | | PCP: | | | TIEN | | | BHARAT | | | | | | : | | | 1995 | | | Admit date: | | | | | | 05/26/2018Di | | | scharge | | | date and | | | time: | | | 06/01/2018 | | | 9:59 AM | | | Admitting | | | Physician: | | | Kyawt Belkys, | | | MD | | | Discharge | | | Physician: | | | Darell U | | | Flo , | | | MDConsults: | | | Dr. | | | AkoumDr. | | | FryePrimary | | | Discharge | | | Diagnoses: | | | Principal | | | Problem: | | | Acute | | | systolic | | | CHF | | | (congestive | | | heart | | | failure) | | | (HCC)Active | | | Problems: | | | ESRD on | | | hemodialysi | | | s SOB | | | (shortness | | | of breath) | | | Pleural | | | effusion on | | | right | | | Non-complia | | | nce | | | Chronic | | | systolic | | | heart | | | failure | | | (HCC) | | | Hyperphosph | | | atemia | | | Hyperkalemi | | | a | | | Pulmonary | | | artery | | | hypertensio | | | n (HCC) | | | Non-rheumat | | | ic | | | tricuspid | | | valve | | | insufficien | | | cy | | | Non-rheumat | | | ic mitral | | | regurgitati | | | on | | | Diastolic | | | dysfunction | | | with | | | chronic | | | heart | | | failure | | | (HCC) At | | | high risk | | | for | | | electrolyte | | | imbalance | | | | | | Transaminit | | | isResolved | | | Problems: | | | * No | | | resolved | | | hospital | | | problems. | | | *Secondary | | | Discharge | | | Diagnoses: | | | NIllDischar | | | ged | | | Condition: | | | stableSigni | | | ficant | | | Diagnostic | | | Studies/Pro | | | cedures: | | | Xr Chest 2 | | | ViewResult | | | Date: | | | . | | | Large | | | right-sided | | | pleural | | | effusion is | | | causing | | | near | | | complete | | | atelectasis | | | of the | | | entire | | | right lung | | | with only a | | | small | | | aerated | | | portion of | | | right upper | | | lobe | | | remaining. | | | 2. Small | | | left-sided | | | pleural | | | effusion at | | | the | | | posterior | | | costophreni | | | c angle. 3. | | | Findings | | | appear | | | largely | | | unchanged | | | from | | | yesterday. | | | Signed by: | | | Iuliano, | | | Edward Sign | | | Date/Time: | | | 05/27/2018 | | | 11:20 AMXr | | | Chest Pa | | | And | | | LateralResu | | | lt Date: | | | . | | | Status | | | post | | | thoracentes | | | is with | | | reported | | | approximate | | | ly 1 L of | | | fluid | | | removed. | | | There is | | | residual | | | pleural | | | effusion | | | which is | | | similar to | | | slightly | | | decreased | | | since the | | | pre | | | thoracentes | | | is study. | | | 2. Wedge | | | like | | | opacity at | | | the | | | superior | | | segment | | | right upper | | | lobe with | | | more lucent | | | area at | | | the right | | | lung base | | | as seen on | | | the lateral | | | view. This | | | suggests | | | airspace | | | consolidati | | | on | | | potentially | | | infectious | | | in | | | etiology. | | | 3. No | | | pneumothora | | | x. 4. | | | Streaky | | | left lower | | | lobe | | | opacity | | | most likely | | | | | | representin | | | g | | | atelectasis | | | . Signed | | | by: Lakhwinder, | | | Florian ALMEIDA | | | Sign | | | Date/Time: | | | 05/26/2018 | | | 4:19 PMCt | | | Chest | | | Non-conResu | | | lt Date: | | | 05/26/20181. | | | Large | | | right and | | | small left | | | pleural | | | effusions. | | | This | | | results in | | | near | | | complete | | | collapse of | | | the right | | | lower and | | | right | | | middle | | | lobes and | | | partial | | | collapse of | | | the right | | | upper lobe. | | | 2. Mosaic | | | pattern of | | | lucencies | | | in the left | | | lung, | | | which may | | | represent | | | air | | | trapping or | | | emphysema. | | | Signed by: | | | MD Debbie | | | El Sign | | | Date/Time: | | | 05/26/2018 | | | 4:55 | | | PMX-ray | | | Chest 1 | | | ViewResult | | | Date: | | | 05/29/2018Mo | | | derate | | | improvement | | | of the | | | right-sided | | | pleural | | | effusion. | | | Right | | | basilar | | | opacity to | | | likely | | | resent | | | atelectasis | | | and/or | | | airspace | | | disease. | | | Signed by: | | | MD Kush, | | | Xander Sign | | | Date/Time: | | | 05/29/2018 | | | 2:32 PMUs | | | Abdomen | | | LimitedResu | | | lt Date: | | | 05/28/2018Up | | | per abdomen | | | ultrasound | | | without | | | identified | | | gallbladder | | | | | | abnormality | | | or biliary | | | | | | dilatation. | | | Moderate | | | ascites and | | | right | | | pleural | | | effusion as | | | seen on | | | recent CT. | | | Patient is | | | on | | | peritoneal | | | dialysis. | | | Signed by: | | | MD Mejia, | | | Stevo | | | Sign | | | Date/Time: | | | 05/28/2018 | | | 9:24 PMEcho | | | Cardiac | | | Adult | | | Complete | | | Result | | | Date: | | | . | | | Sinus | | | rhythm. 2. | | | A | | | 2-dimension | | | al | | | transthorac | | | ic | | | echocardiog | | | stan with | | | m-mode, | | | spectral | | | and color | | | flow | | | Doppler was | | | perfomed. | | | 3. This was | | | a | | | technically | | | adequate | | | study. 4. | | | Overall | | | left | | | ventricular | | | systolic | | | function is | | | severely | | | impaired | | | with, an EF | | | between 20 | | | - 25 %. 5. | | | The left | | | ventricle | | | cavity size | | | is normal. | | | 6. There | | | is mild | | | concentric | | | left | | | ventricular | | | | | | hypertrophy | | | . 7. There | | | is severe | | | global | | | hypokinesis | | | of LV | | | contractili | | | ty. 8. | | | There is | | | septal | | | flattening | | | in diastole | | | which is | | | consistent | | | with right | | | ventricular | | | volume | | | overload. | | | 9. | | | Pseudonorma | | | l LV | | | diastolic | | | filling | | | pattern, | | | consistent | | | with | | | elevated LA | | | pressure | | | and | | | moderate | | | dysfunction | | | (Grade | | | II). 10. | | | The right | | | ventricle | | | is | | | moderately | | | enlarged. | | | 11. The | | | right | | | ventricular | | | systolic | | | function is | | | mildly | | | impaired. | | | 12. The | | | left atrial | | | size is | | | normal. 13. | | | The right | | | atrium is | | | moderately | | | enlarged. | | | 14. The | | | aortic | | | valve is | | | trileaflet. | | | 15. There | | | is mild | | | aortic | | | regurgitati | | | on. 16. | | | There is no | | | evidence | | | of aortic | | | stenosis. | | | 17. The | | | mitral | | | valve is | | | normal. 18. | | | | | | Mild-to-mod | | | erate | | | eccentric | | | mitral | | | regurgitati | | | on is | | | present. | | | 19. Severe | | | tricuspid | | | regurgitati | | | on present. | | | 20. The | | | right | | | ventricular | | | systolic | | | pressure | | | (pulmonary | | | artery | | | systolic | | | pressure), | | | as measured | | | by | | | Doppler, is | | | 30+15=45 | | | mmHg. | | | Non-coaptat | | | ion of the | | | TV | | | leaflets. | | | 21. Mild | | | pulmonic | | | regurgitati | | | on. 22. | | | There is no | | | | | | pericardial | | | effusion. | | | 23. Pleural | | | effusion | | | present. | | | 24. The IVC | | | is dilated | | | (>2.5cm) | | | and does | | | not | | | collapse | | | with sniff, | | | consistent | | | with | | | central | | | venous | | | pressures | | | of 15 mmHg. | | | 25. The | | | aortic | | | root, | | | ascending | | | aorta and | | | aortic arch | | | are | | | normal. 26. | | | No mass | | | visualized | | | 27. No clot | | | | | | visualizedU | | | s | | | Thoracentes | | | is | | | (includes | | | Imaging)Res | | | ult Date: | | | 05/29/2018Un | | | complicated | | | right | | | thoracentes | | | is. | | | Drainage of | | | 1500 cc | | | clear | | | straw-color | | | ed fluid. | | | Signed by: | | | Bustos, | | | Quang Sign | | | Date/Time: | | | 05/29/2018 | | | 3:39 PMHPI | | | and | | | Hospital | | | Course: | | | 23-year-old | | | female | | | with past | | | medical | | | history of | | | end-stage | | | renal | | | disease on | | | hemodialysi | | | s Monday | | | Monday | | | Monday, | | | hypertensio | | | n, anemia | | | of chronic | | | disease who | | | went to | | | [facility] | | [facility] | | | with | | | increasing | | | shortness | | | of breath | | | found to | | | have right | | | pleural | | | effusion | | | who was | | | transferred | | | to [facility] | [facility] | | | underwent | | | right-sided | | | diagnostic | | | and | | | therapeutic | | | | | | thoracocent | | | esis with | | | removal of | | | 1 L of | | | fluid | | | likely | | | transudativ | | | e, Gram | | | stain and | | | cultures | | | negative so | | | far and | | | also had | | | high volume | | | | | | paracentesi | | | s 4 L in | | | the | | | emergency | | | department. | | | Patient | | | was started | | | on | | | Rocephin | | | and | | | azithromyci | | | n for | | | possible | | | pneumonia | | | which was | | | stopped as | | | CT scan was | | | negative | | | for any | | | pneumonia. | | | Patient | | | underwent | | | CT scan of | | | the chest | | | which | | | showed | | | complete | | | collapse of | | | the right | | | lower and | | | middle lobe | | | with | | | partial | | | collapse of | | | right | | | upper | | | lobe.Patien | | | t | | | echocardiog | | | stan came | | | back and | | | showed | | | ejection | | | fraction of | | | 25% and | | | cardiology | | | consulted. | | | She is | | | feeling | | | much better | | | today. She | | | got | | | hemodialysi | | | s today. We | | | tested for | | | home | | | oxygen | | | requirement | | | and she is | | | not | | | requiring | | | any | | | oxygen..She | | | is not on | | | RYAN/ARB as | | | she had a | | | history of | | | hyperkalemi | | | a with | | | that. I | | | discussed | | | with the | | | cardiologis | | | t as well | | | regarding | | | not being | | | on RYAN/ARB. | | | Follow Up | | | Labs/Imagin | | | g and | | | Monitoring: | | | | | | CardiologyD | | | ischarge | | | Vitals: | | | Vitals: | | | 06/01/18 | | | 0900 | | | 06/01/18 | | | 0915 | | | 06/01/18 | | | 0930 | | | 06/01/18 | | | 0945 BP: | | | 141/89 | | | 136/76 | | | 131/73 | | | 140/77 | | | Pulse: 86 | | | 85 81 85 | | | Resp: 16 16 | | | 16 16 | | | Temp: | | | TempSrc: | | | SpO2: 98% | | | 98% 99% | | | 95% Weight: | | | | | | Height: | | | Discharge | | | Exam: | | | Constitutio | | | nal: Alert | | | and | | | oriented to | | | person, | | | place, and | | | time. . | | | Cardiovascu | | | lar: Normal | | | rate, | | | regular | | | rhythm, | | | normal | | | heart | | | sounds with | | | S1 and S2 | | | and intact | | | distal | | | pulses. | | | Exam | | | reveals no | | | gallop and | | | no friction | | | rub. No | | | murmur | | | heard.Pulmo | | | nary/Chest: | | | Decreased | | | air entry | | | bilateralAb | | | dominal: | | | Soft. Bowel | | | sounds are | | | normal. | | | exhibits no | | | distension | | | and no | | | mass. There | | | is no | | | tenderness. | | | There is | | | no rebound | | | and no | | | guarding. | | | Musculoskel | | | etal: | | | Normal | | | range of | | | motion.exhi | | | bits no | | | tenderness. | | | exhibits | | | no edema. | | | | | | Neurologica | | | l: Alert | | | and | | | oriented to | | | person, | | | place, and | | | time. Skin: | | | Skin is | | | warm and | | | dry. No | | | rash noted. | | | No | | | erythema. | | | No pallor. | | | Psychiatric | | | : Has a | | | normal mood | | | and | | | affect. | | | Behavior is | | | normal. | | | Judgment | | | normal. Not | | | suicidal | | | LABS: | | | Recent | | | LabsLab | | | | | | 3 | | | | | | 4 | | | | | | 8 WBC 5.40 | | | 4.57 4.80 | | | HGB 10.7* | | | 10.9* 10.7* | | | HCT 32.4* | | | 32.9* 31.7* | | | PLT 119* | | | 107* 118* | | | NEUTOPHILPC | | | T 54.51 | | | 55.65 58.60 | | | MONOPCT | | | 8.93 7.18 | | | 6.15 Recent | | | LabsLab | | | | | | 3 | | | | | | 4 | | | | | | 8 NA 139 | | | 139 138 K | | | 4.7 4.3 3.8 | | | CL 101 99 | | | 97* CO2 33* | | | 32 31 BUN | | | 27* 19 34* | | | CREATININE | | | 7.2* 5.6* | | | 7.8* PROT | | | 6.5 6.6 6.4 | | | BILITOT | | | 0.8 0.9 0.8 | | | ALT 231* | | | 299* 375* | | | AST 97* | | | 134* 182* | | | Recent | | | LabsLab | | | | | | 5 MG 2.7* | | | Recent | | | LabsLab | | | | | | 2 | | | | | | 4 APTT 29 | | | 29 INR 1.5 | | | 1.6 Recent | | | LabsLab | | | | | | 9 | | | | | | 3 | | | | | | 4 CKTOTAL | | | -- -- | | | 291* | | | TROPONINI | | | 0.037 0.034 | | | -- | | | CKMBINDEX | | | -- -- | | | 2.7 Results | | | | | | Procedure | | | Component | | | Value Units | | | Date/Time | | | Culture, | | | Body Fluid | | | [[id number]] | | | Collected: | | | 05/26/18 | | | 1412 | | | Specimen: | | | Body Fluid | | | from | | | Pleural | | | Fluid | | | Updated: | | | 05/30/18 | | | 0733 | | | Specimen | | | Description | | | PLEURAL | | | FLUID | | | GRAM STAIN | | | WBC'S SEEN | | | GRAM | | | STAIN NO | | | ORGANISMS | | | SEEN GRAM | | | STAIN | | | STAIN | | | PERFORMED | | | ON CYTOSPIN | | | CULTURE | | | NO GROWTH 4 | | | DAYS | | | Culture, | | | Body Fluid | | | [[id number]] | | | Collected: | | | 05/26/18 | | | 1513 | | | Specimen: | | | Other from | | | Ascites | | | Fluid | | | Updated: | | | 05/30/18 | | | 0732 | | | Specimen | | | Description | | | ASCITES | | | FLUID | | | GRAM STAIN | | | STAIN | | | PERFORMED | | | ON CYTOSPIN | | | GRAM | | | STAIN WBC'S | | | SEEN | | | GRAM STAIN | | | NO | | | EPITHELIAL | | | CELLS SEEN | | | GRAM | | | STAIN NO | | | ORGANISMS | | | SEEN | | | CULTURE NO | | | GROWTH 4 | | | DAYS Gram | | | stain | | | [[id number]] | | | Collected: | | | 05/29/18 | | | 1256 | | | Specimen: | | | Sputum from | | | Thoracic | | | Fluid | | | Updated: | | | 05/29/18 | | | 2339 | | | Specimen | | | Description | | | THORACIC | | | FLUID | | | CULTURE 1+ | | | WBC'S | | | SEEN NO | | | ORGANISMS | | | SEEN | | | Lactate | | | dehydrogena | | | se, body | | | fluid | | | [[id number]] | | | Collected: | | | 05/29/18 | | | 1256 | | | Specimen: | | | Body Fluid | | | from | | | Pleural, | | | Right | | | Updated: | | | 05/29/18 | | | 1619 | | | FLUID LDH | | | 151 U/L | | | Cholesterol | | | , body | | | fluid | | | [[id number]] | | | Collected: | | | 05/29/18 | | | 1256 | | | Specimen: | | | Body Fluid | | | from | | | Pleural, | | | Right | | | Updated: | | | 05/29/18 | | | 1619 | | | FLUID | | | CHOLESTEROL | | | 56 mg/dL | | | | | | Disposition | | | : Home or | | | Self | | | CarePatient | | | | | | Instruction | | | s: | | | Medication | | | List START | | | taking | | | these | | | medications | | | | | | hydrALAZINE | | | 50 MG | | | tabletQTY: | | | 90 | | | tabletRefil | | | ls: | | | 3Commonly | | | known as: | | | APRESOLINET | | | carlos 1 | | | tablet by | | | mouth 3 | | | (three) | | | times | | | daily. | | | isosorbide | | | dinitrate | | | 40 MG | | | tabletQTY: | | | 90 | | | tabletRefil | | | ls: | | | 2Commonly | | | known as: | | | ISORDILTake | | | 1 tablet | | | by mouth 3 | | | (three) | | | times | | | daily. | | | metoprolol | | | 25 MG 24 hr | | | tabletQTY: | | | 30 | | | tabletRefil | | | ls: | | | 2Commonly | | | known as: | | | TOPROL-XLTa | | | ke 1 tablet | | | by mouth | | | daily.Start | | | taking on: | | | 06/02/2018 | | | | | | pantoprazol | | | e 40 MG | | | tabletQTY: | | | 30 | | | tabletRefil | | | ls: | | | 1Commonly | | | known as: | | | PROTONIXTak | | | e 1 tablet | | | by mouth | | | every | | | morning | | | before | | | breakfast | | | for 60 | | | days.Start | | | taking on: | | | 06/02/2018 | | | sevelamer | | | 800 MG | | | tabletQTY: | | | 180 | | | tabletRefil | | | ls: | | | 2Commonly | | | known as: | | | RENVELATake | | | 2 tablets | | | by mouth 3 | | | (three) | | | times daily | | | with | | | meals. | | | CONTINUE | | | taking | | | these | | | medications | | | | | | clopidogrel | | | 75 MG | | | tabletRefil | | | ls: | | | 0Commonly | | | known as: | | | PLAVIX | | | HYDROcodone | | | -acetaminop | | | hen 5-325 | | | MG per | | | tabletRefil | | | ls: | | | 0Commonly | | | known as: | | | NORCO | | | ondansetron | | | 4 MG | | | tabletRefil | | | ls: | | | 0Commonly | | | known as: | | | ZOFRAN | | | PARSABIV | | | IVRefills: | | | 0 VELPHORO | | | 500 MG | | | chewable | | | tabletRefil | | | ls: | | | 0Generic | | | drug: | | | sucroferric | | | | | | oxyhydroxid | | | e You | | | might also | | | be taking | | | other | | | medications | | | not listed | | | above. If | | | you have | | | questions | | | about any | | | of your | | | other | | | medications | | | , talk to | | | the person | | | who | | | prescribed | | | them or | | | your | | | Primary | | | Care | | | Provider. | | | STOP | | | taking | | | these | | | medications | | | | | | citalopram | | | 20 MG | | | tabletCommo | | | nly known | | | as: CeleXA | | | | | | doxycycline | | | 100 MG | | | tabletCommo | | | nly known | | | as: | | | VIBRA-TABS | | | losartan | | | 100 MG | | | tabletCommo | | | nly known | | | as: COZAAR | | | Where to | | | Get Your | | | Medications | | | You can | | | get these | | | medications | | | from any | | | pharmacy | | | Bring a | | | paper | | | prescriptio | | | n for each | | | of these | | | medications | | | | | | hydrALAZINE | | | 50 MG | | | tablet | | | isosorbide | | | dinitrate | | | 40 MG | | | tablet | | | metoprolol | | | 25 MG 24 hr | | | tablet | | | pantoprazol | | | e 40 MG | | | tablet | | | sevelamer | | | 800 MG | | | tablet | | | Activity: | | | activity as | | | | | | toleratedDi | | | et: cardiac | | | diet and | | | renal | | | dietWound | | | Care: as | | | directedDis | | | charge | | | medications | | | | | | reconciliat | | | ion was | | | completed | | | by myself. | | | I | | | carefully | | | reviewed | | | all the | | | medications | | | with the | | | patient. | | | All the | | | dosages was | | | confirmed | | | with the | | | patient to | | | the best of | | | patient's | | | knowledge. | | | I resumed | | | most of his | | | home | | | medication | | | after | | | talking to | | | the | | | patient. I | | | informed | | | the patient | | | that, If | | | you are | | | not taking | | | any of | | | those | | | medicines | | | or if you | | | think that | | | dose is not | | | right | | | please talk | | | to the | | | primary | | | care doctor | | | for | | | adjustment | | | of doses | | | and | | | medications | | | . Please | | | take all | | | the | | | medication | | | to your PCP | | | and show | | | him what | | | medication | | | you are | | | taking so | | | that he can | | | adjust | | | your | | | medications | | | if needed. | | | Follow-Up: | | | Tien | | | Bharat, | | | [id number] | | [address], [place] | | | [address] | | | n [place] | | | [phone] | | | [phone] | | | weekLindsay | | | Mahmood, | | | [id number] | | | GOETHALS | | | DRSTE | | | [place] | | | [place] | | | [phone] | | | [phone] | | | weekJennife | | | r Ibarra, | | | MD[address] | | | [place] | | | [address] | | | [place] | | | [phone] | | | [phone] | | | week | | | Discharge | | | took more | | | than 35 | | | minutes, to | | | include | | | final | | | examination | | | , | | | discussion | | | of | | | admission, | | | and | | | preparation | | | of | | | prescriptio | | | ns, | | | instruction | | | s for | | | ongoing | | | care, | | | follow up | | | and | | | dictation | | | of | | | summary.Sig | | | carlos:DARELL U | | | FLO, | | | MD06/01/2018 | | | 9:59 | | | AMDictation | | | software, | | | Dragon, | | | used which | | | may contain | | | error for | | | similar | | | sounding | | | words even | | | after | | | review. | | | Personal | | | communicati | | | on | | | requested | | | for any | | | clarificati | | | on.Portions | | | of this | | | chart may | | | have been | | | copied from | | | previous | | | notes for | | | continuity | | | of care | | | purpose | +---+ + from Last 3 Months Immunizations + [...] + + | 07/19/ | Office | | Gretchen Teran | | | 2019 | Visit | | [address] | | | | | | [address] | | | | | | [place] [address] | | | | | | [phone] | | | | | | | [...] | Left: | SYNOVIS | | | [id number] | | 0.8x8cm - [id number]: | | Arm | | | | N / | | Qty: 1 on 03/07/2014 by Alfred | | | | | | /[id number] [...] | | | COVIDIEN | | | [id number] | | 23cmExplanted: Qty: 1 on | | | | | | [id number] / | | 04/08/2014 | | | | | | | | | | | | | | /[id number] | | | | | | | [...] + +--------+ + + + | ECHO OUTSIDE | Routin | 06/12/2018 | Dyspnea, | Results for this | | INTERPRETATION | e | 2:52 PM | unspecified type | procedure are in the | | STANDARD | | PDT | | results section. [...] + + from Last 3 Months Results EKG STANDARD 12 LEAD (06/28/2018 12:17 PM)Only the most recent of 2 results within the time period is included. + + + + + | Component | Value | Ref Range | Performed At | + + + + + | Ventricular Rate | 99 | BPM | [facility] | + + + + + | Atrial Rate | 99 | BPM | [facility] | + [...] + + + + | Calculated P Noel | 45 | degrees | [facility] | + + + + + | Calculated R Noel | -7 | degrees | [facility] | + + + + + | Calculated T Noel | 104 | degrees | [facility] | + + + + + | Diagnosis | Please refer to | | [facility] | | | Providers office visit | | | | | note for Providers | | | | | Interpretation.Confirmed | | | | | by [facility] [place] Read Only, | | | | | [facility] Shantelle ([phone]), | | | | | newspaper editor managing Joey Phillips | | | | | [phone]) on 06/28/2018 | | | | | 1:01:23 PM | | | + + + + + + + + + + | Performing | Address | City/State/Zipcode | Phone Number | | Organization | | | | + + + + + | [facility] | [address] | [place] [address] | | + + + + + ECHO outside interpretation standard (06/12/2018 2:52 PM) [...] DARA LOUISE Date of : 1995 | [facility] | | Performing Physician: René [...] MV A Shahid: 0.39 m/s MV Dec Rhea: 9.46 m/s2 | | | MV DecT: 106.01 ms MV E Shahid: 1.00 m/s MV E/A Ratio: | | | 2.54 E/E' Sept: 23.82 E' Lat: 0.08 m/s E' Sept: 0.04 | | | m/s RAP: 15 mmHg RV S': 0.11 m/s RVSP: 67.64 mmHg TR | | | maxP.64 mmHg TR Vmax: 3.61 m/s Hand Molder: | | | Authenticated by: René Noonan MD Report Date/Time: -- | | | [id number]:15:25 | | + + + + + | Procedure Note | + + | Sonido Steele In - 06/12/2018 4:15 PM PDT Patient Name: Anders LOUISE of | | : 1995Accession: [id number] Physician: René Noonan MD | | INDICATIONS [...] (A-L): 31.60 | | ml/m2LAAs A2C: 18.56 [id number] A-L A2C: 58.49 mlLAESV MOD A2C: 54.57 mlLALs A2C: | | 5.00 cmLAAs A4C: 17.96 to4HQHEC A-L A4C: 52.99 mlLAESV MOD A4C: 44.93 mlLALs A4C: | | 5.18 cmLAESV(MOD BP): 49.83 mlRAAs: 18.33 bs1FWKFJ A-L: 57.01 mlRAESV MOD: | | 56.24 mlRALs: 5.02 cmTAPSE: 1.98 cmAV Env.Ti: 227.35 msAV maxP.22 mmHgAV | | meanP.25 mmHgAV Vmax: 1.59 m/Elizabeth Vmean: 1.06 m/Elizabeth VTI: 24.30 cmAVA Vmax: | | 2.68 cm2AVA (VTI): 2.73 [id number] Vmax: 0.00 cm2/m2AVAI (VTI): 0.00 cm2/m2LVOT | | Env.Ti: 210.72 msLVOT maxP.99 mmHgLVOT meanP.87 mmHgLVSI Dopp: 37.17 | | ml/m2LVSV Dopp: 66.54 mlLVOT Vmax: 1.41 m/sLVOT Vmean: 1.03 m/sLVOT VTI: 21.88 | | cmMV A Shahid: 0.39 m/sMV Dec Rhea: 9.46 m/s2MV DecT: 106.01 msMV E Shahid: 1.00 | | m/sMV E/A Ratio: 2.54 E/E' Sept: 23.82 E' Lat: 0.08 m/sE' Sept: 0.04 m/sRAP: | | 15 mmHgRV S': 0.11 m/sRVSP: 67.64 mmHgTR maxP.64 mmHgTR Vmax: 3.61 | | m/sSonographer: Authenticated by: René Palacios Date/Time: -- | | [id number]:15:25IMPRESSION:1. Overall left ventricular systolic function is | [...] A Shahid: 0.39 m/s | |MV Dec Rhea: 9.46 m/s2 | |MV DecT: 106.01 ms | |MV E Shahid: 1.00 m/s | |MV E/A Ratio: 2.54 | |E/E' Sept: 23.82 | |E' Lat: 0.08 m/s | |E' Sept: 0.04 m/s | |RAP: 15 mmHg | |RV S': 0.11 m/s | |RVSP: 67.64 mmHg | |TR maxP.64 mmHg | |TR Vmax: 3.61 m/s | | | |Hand Molder: | |Authenticated by: René Noonan MD | |Report Date/Time: -56_[id number]_05:15:25 | | | |IMPRESSION: | |1. Overall [...] + + + + | [facility] | [address] | [place] [address] | | + + + + + [...] performed | | | | | at [facility], [address] | | | | | [address], | | | | | [place] [address] | | | | |Testing performed at [facility], [address] [facility], [place] [address] | | | | | | | | + + + + + + + | Specimen | + + | Blood | + + + + + + + | Performing | Address | City/State/Zipcode | Phone Number | | Organization | | | | + + + + + | [facility] | [address] | [place] [address] | [phone] | | LABORATORY | Blvd. | | [...] | | | | performed at [facility], [address] | | | | | [facility], | | | | | [place] [address] | | | + + + + + + + | Specimen | + + | Blood | + + + + + + + | Performing | Address | City/State/Zipcode | Phone Number | | Organization | | | | + + + + + | [facility] | [address] | [place] [address] | [phone] | | LABORATORY | [address] | | [...] | | | antibiotic" for pneumonia at [facility]. Was throwing up & could not [...] recent of 2 results within the time griffin escobar is included. + + + | Impressions [...] | + + + + + | [facility] | [address] | [place] [address] | | + + + + + Cholesterol, body fluid (05/29/2018 12:56 PM) + + + + + | Component | Value | Ref Range | Performed At | + + + + + | FLUID CHOLESTEROL | 56Comment: This is not a | mg/dL | [facility] | | | crew director validated | | LABORATORY | | | sample type for this | | | | | method. No reference | | | | | ranges have been | | | | | established.Testing | | | | | performed at [facility], [address] | | | | | [facility], | | | | | [place] [address] | | | + + + + + + + | Specimen | + + | Body Fluid - | | Pleural, Right | + + + + + + + | Performing | Address | City/State/Zipcode | Phone Number | | Organization | | | | + + + + + | [facility] | [address] | [place] [address] | [phone] | | LABORATORY | Blvd. | | [...] + + + | [facility] | [address] | [place] [address] | [phone] | | LABORATORY | Blvd. | | | + + + + + Lactate dehydrogenase, body fluid (05/29/2018 12:56 PM) + + + + + | Component | Value | Ref Range | Performed At | + + + + + | FLUID LDH | 151Comment: This is not | U/L | [facility] | | | a crew director validated | | LABORATORY | | | sample type for this | | | | | method. No reference | | | | | ranges have been | | | | | established.Testing | | | | | performed at [facility], [address] | | | | | [facility], | | | | | [place] [address] | | | + + + + + + + | Specimen | + + | Body Fluid - | | Pleural, Right | + + + + + + + | Performing | Address | City/State/Zipcode | Phone Number | | Organization | | | | + + + + + | [facility] | [address] | [place] [address] | [phone] | | LABORATORY | Blvd. | | [...] | | space is punctured with an 8-Norwegian thoracentesis catheter. Fluid is | | | [...] the pleural space is punctured with an 8-Norwegian | | thoracentesis catheter. Fluid is aspirated [...] + + + + | [facility] | [address] | [place] [address] | | + + + + + APTT (05/29/2018 8:52 AM) + + + + + | Component | Value | Ref Range | Performed At | + + + + + | APTT | 29Comment: Testing | 23 - 32 seconds | [facility] | | | performed at [facility];[address];[place] | | | | | [address] | | | + + + + + + + | Specimen | + + | Blood | + + + + + + + | Performing | Address | City/State/Zipcode | Phone Number | | Organization | | | | + + + + + | [facility] | [address] | [place] [address] | | + + + + + Protime-INR (05/29/2018 8:52 AM) + + + + + | Component | Value | Ref Range | Performed At | + + + + + | INR | 1.5Comment: REFERENCE | | [facility] | | | RANGE:0.9 [...] | | | | | performed at [facility];[address] | | | | | [address];[place] | | | | | [address] | | | + + + + + + + | Specimen | + + | Blood | + + + + + + + | Performing | Address | City/State/Zipcode | Phone Number | | Organization | | | | + + + + + | [facility] | [address] | [place] [address] | | + + + + + [...] | + + + + + | [facility] | [address] | [place] [address] | | + + + + + Troponin I (05/28/2018 1:59 PM)Only the most recent of 2 results within the time period is included. + + + + + | Component | Value | Ref Range | Performed At | + + + + + | TROPONIN I | 0.037Comment: 0.04 | 0.00 - 0.04 ng/mL | [facility] | | | ng/mL [...] performed at | | | | | [facility];[address] | | | | | [facility];[place] [address] | | | + + + + + + + | Specimen | + + | Blood | + + + + + + + | Performing | Address | City/State/Zipcode | Phone Number | | Organization | | | | + + + + + | [facility] | [address] | [place] [address] | | + + + + + [...] performed at | | | | | [facility], [address] [place] [address] | | | | | [place] | | | | | [address] | | | + + + + + + + | Specimen | + + | Blood | + + + + + + + | Performing | Address | City/State/Zipcode | Phone Number | | Organization | | | | + + + + + | [facility] | [address] | [place] [address] | [phone] | | LABORATORY | [address] | | [...] | | | | performed at [facility], [address] | | | | | [facility], | | | | | [place] [address] | | | + + + + + + + | Specimen | + + | Blood | + + + + + + + | Performing | Address | City/State/Zipcode | Phone Number | | Organization | | | | + + + + + | [facility] | [address] | [place] [address] | [phone] | | LABORATORY | [address]vd[address] | | [...] 4.3 | 3.5 - 4.9 mmol/L | [facility] [...] 9.1 | 8.5 - 10.5 mg/dL | [facility] | + + + + + | Albumin | 3.6 | 3.6 - 5.0 g/dL | [facility] | + + + + + | PHOSPHORUS | 6.3 (H) | 2.3 - 4.8 mg/dL | [facility] LAB[facility]AT[facility] | + + + + + | EGFR | 6 (L)Comment: GFR <60: | >60 mL/min/1.73m2 | [facility] | | | CHRONIC [...] the | | | | | [facility] traceable | | | | | equation.Testing | | | | | performed at [facility];[address] | | | | | [address];[place], [place] | | | | | [address] | | | + + + + + + + | Specimen | + + | Blood - Blood | + + + + + + + | Performing | Address | City/State/Zipcode | Phone Number | | Organization | | | | + + + + + | [facility] | [address] | [place] [address] | | + + + + + Sedimentation rate, automated (05/28/2018 9:23 AM) + + + + + | Component | Value | Ref Range | Performed At | + + + + + | ESR | 2Comment: Testing | 0 - 20 mm/Hr | [facility] | | | performed at [facility], [address] | | LABORATORY | | | [address], | | | | | [place] [address] | | | + + + + + + + | Specimen | + + | Blood | + + + + + + + | Performing | Address | City/State/Zipcode | Phone Number | | Organization | | | | + + + + + | [facility] | [address] [place] [address] | [place] [address] | [phone] | | LABORATORY | [address]vd[address] | | | + + + + + C-reactive protein (05/28/2018 9:23 AM) + + + + + | Component | Value | Ref Range | Performed At | + + + + + | CRP | 5.1 (H)Comment: Testing | <0.5 mg/dL | [facility] | | | performed at [facility], [address] | | LABORATORY | | | [facility] [place], | | | | | [place] [address] | | | + + + + + + + | Specimen | + + | Blood | + + + + + + + | Performing | Address | City/State/Zipcode | Phone Number | | Organization | | | | + + + + + | [facility] | [address] | [place] [address] | [phone] | | LABORATORY | [address]vd[address] | | | + + + + + hCG, serum, qualitative (05/28/2018 9:23 AM) + + + + + | Component | Value | Ref Range | Performed At | + + + + + | TEST,SERUM | NEGATIVEComment: Testing | NEGATIVE | [facility] | | | performed at [facility], [address] | | LABORATORY | | | [address], | | | | | [place] [address] | | | + + + + + + + | Specimen | + + | Blood | + + + + + + + | Performing | Address | City/State/Zipcode | Phone Number | | Organization | | | | + + + + + | [facility] | [address] | [place] [address] | [phone] | | LABORATORY | [address]vd. | | | + + + + + TSH (05/28/2018 9:23 AM) + + + + + | Component | Value | Ref Range | Performed At | + + + + + | TSH | 1.270Comment: Testing | 0.450 - 5.100 uIU/mL | [facility] | | | performed at [facility], [address] | | LABORATORY | | | [address], | | | | | [place] [address] | | | + + + + + + + | Specimen | + + | Blood | + + + + + + + | Performing | Address | City/State/Zipcode | Phone Number | | Organization | | | | + + + + + | [facility] | [address] | [place] [address] | [phone] | | LABORATORY | [address]vd. | | | + + + + + Pathology cytology - fluid (05/28/2018 8:00 AM) + + | Specimen | + + | Body Fluid | + + + + + | Narrative | Performed At | + + + | ORDERING PHYSICIAN: Maria Luisa ALMEIDA, Aneudy Briggs PATIENT NAME: | [facility] | | DARA LOUISE GENDER: Alysia : [...] PERFORMING LABORATORY: Technical preparation was performed by [facility] | | | [address], [address] [place] [address] | | | (Manager Endoscopy: Matt Claudio D.O.; CLIA#: [id number]). | | | Professional interpretation was performed by [facility], | | | [address] [address] | | | (Manager Endoscopy: Daniel Larson M.D.; CLIA#: [id number]).6 | | | Diagnostician: Marie BROOKS ([facility]) Front Desk | | | Diagnostician: Anahy Da Silva [...] + + + | [facility] | [address] | [place] [address] | [phone] | | LABORATORY | Blvd. | | [...] performed at | | | | | [facility], [address] [place] [address] | | | | | [place] | | | | | [address] | | | + + + + + + + + + + | Performing | Address | City/State/Zipcode | Phone Number | | Organization | | | | + + + + + | [facility] | [address] | [place] [address] | [phone] | | LABORATORY | [address] | | [...] valve is normal. 18. | | | Qzbr-yy-fdgngowh eccentric mitral regurgitation is present. 19. | [...] DARA LOUISE Date of : 1995 | [facility] | | Performing Physician: Robel [...] valve is normal. 18. | | | Beqh-qc-dqhbkddf eccentric mitral regurgitation is present. 19. | [...] is | | | normal. Mitral Valve: Aqnh-rh-geiwdpve eccentric mitral | | | regurgitation is [...] TR Vmax: 2.74 m/s | | | Hand Molder: MW Authenticated by: Robel Yusuf MD Report | | | Date/Time: 05-27-2018 13:59:57 | | + + + + + | Procedure Note | + + | Sonido Steele In - 05/27/2018 2:00 PM PDT Patient Name: Anders LOUISE of | | : 1995Accession: [id number] Physician: Robel Yusuf | | MD INDICATIONS [...] aortic stenosis.17. The mitral valve is normal.18. Ankv-tp-ybicfnxl | | eccentric mitral regurgitation is present.19. [...] | | arch are normal.26. No mass ixlempujel11. No clot visualizedFINDINGS--------ECG rhythm: | | Sinus [...] The mitral valve is normal. Mitral Valve: Nmfy-tn-gnchgzmx eccentric mitral | | regurgitation is present.Tricuspid [...] (A-L): 30.43 | | ml/m2LAAs A2C: 20.97 ti8MRYRP A-L A2C: 65.71 mlLALs A2C: 5.68 cmLAAs A4C: 19.94 | | ld5ZVFTJ A-L A4C: 60.20 mlLALs A4C: 5.60 cmTAPSE: 1.58 cmHR: 79.62 BPMAV maxPG: | | 6.06 mmHgAV meanP.71 mmHgAV Vmax: 1.23 m/Elizabeth Vmean: 0.92 m/Elizabeth VTI: 20.07 | | cmAVA Vmax: 1.74 cm2AVA (VTI): 1.93 xk1BELO Vmax: 0.00 cm2/m2AVAI (VTI): 0.00 | | [...] The mitral valve is | | normal.18. Heoo-gj-cjjbniyy eccentric mitral regurgitation is present.19. Severe | [...] and aortic arch are normal.26. No mass awajepeaur80. No clot visualized | |LVIDd: 4.99 cm [...] |TR Vmax: 2.74 m/s | | | |Hand Molder: MW | |Authenticated by: Robel Yusuf MD [...] The mitral valve is normal. | |18. Lttw-dx-hdshrxcx eccentric mitral regurgitation is present. | |19. [...] | + + + + + | [facility] | [address] | [place] [address] | | + + + + + [...] yesterday. Signed by: Rai Espinoza Sign Date/Time: | | | 05/27/2018 11:20 AM [...] | + + + + + | [facility] | [address] | [place] [address] | | + + + + + Phosphorus (05/27/2018 4:25 AM) + + + + + | Component | Value | Ref Range | Performed At | + + + + + | PHOSPHORUS | 8.0 (H)Comment: Testing | 2.3 - 4.8 mg/dL | [facility] | | | performed at [facility], [address] | | LABORATORY | | | [address], | | | | | [place] [address] | | | + + + + + + + | Specimen | + + | Blood | + + + + + + + | Performing | Address | City/State/Zipcode | Phone Number | | Organization | | | | + + + + + | [facility] | [address] | [place] [address] | [phone] | | LABORATORY | Blvd[address] | | [...] (H)Comment: | 0 - 100 pg/mL | [facility] | | PEPTIDE | Testing performed at | | | | | [facility];[address] | | | | | [address];[place] [address] | | | + + + + + + + | Specimen | + + | Blood | + + + + + + + | Performing | Address | City/State/Zipcode | Phone Number | | Organization | | | | + + + + + | [facility] | [address] | [place] [address] | | + + + + + Magnesium (05/27/2018 4:25 AM) + + + + + | Component | Value | Ref Range | Performed At | + + + + + | MAGNESIUM | 2.7 (H)Comment: Testing | 1.7 - 2.4 mg/dL | [facility] | | | performed at [facility], [address] | | LABORATORY | | | [address] [facility] [address], | | | | | [place] [address] | | | + + + + + + + | Specimen | + + | Blood | + + + + + + + | Performing | Address | City/State/Zipcode | Phone Number | | Organization | | | | + + + + + | [facility] | [address] | [place] [address] | [phone] | | LABORATORY | [address]vd[address] | | [...] (L)Comment: GFR <60: | >60 mL/min/1.73m2 | [facility] | | | CHRONIC KIDNEY DISEASE, | [...] | | | | performed at [facility], [address] | | | | | [facility], | | | | | [place] [address] | | | + + + + + + + | Specimen | + + | Blood | + + + + + + + | Performing | Address | City/State/Zipcode | Phone Number | | Organization | | | | + + + + + | [facility] | [address] | [place] [address] | [phone] | | LABORATORY | Blvd. | | [...] INTERP | Testing performed by | | [facility] | | | Molecular | | LABORATORY | | | MethodologyComment: | | | | | Testing performed at | | | | | [facility], [address] | | | | | [place] | | | | | [address] | | | + + + + + + + | Specimen | + + | Nasopharynx/Orophary | | nx | + + + + + + + | Performing | Address | City/State/Zipcode | Phone Number | | Organization | | | | + + + + + | [facility] | [address] | [place] [address] | [phone] | | LABORATORY | [address] | | | + + + + + MRSA by PCR (05/26/2018 6:06 PM) + + + + + | Component | Value | Ref Range | Performed At | + + + + + | SOURCE | NARES(NOSE) | | [facility] | + + + + + | MRSA PCR | NEGATIVEComment: Testing | NEGATIVE | [facility] | | | performed at [facility];[address] | | | | | [address];[place], [place] | | | | | [address] | | | + + + + + + + | Specimen | + + | Nasopharyngeal - | | Nares(Nose) | + + + + + + + | Performing | Address | City/State/Zipcode | Phone Number | | Organization | | | | + + + + + | [facility] | [address] | [place] [address] | | + + + + + PROCALCITONIN (05/26/2018 5:27 PM)Only the most recent of 2 results within the time period is included. + + + + + | Component | Value | Ref Range | Performed At | + + + + + | PROCALCITONIN | 0.76 (H)Comment: | <0.5 ng/mL | [facility] | | | INTERPRETIVE [...] performed | | | | | at [facility];[address] [place] [address] | | | | | [facility];[place] [address] | | | + + + + + + + + + + | Performing | Address | City/State/Zipcode | Phone Number | | Organization | | | | + + + + + | [facility] | [address] | [place] [address] | | + + + + + [...] CHEST WITHOUT CONTRAST CLINICAL INFORMATION: Pneumonia. | [facility] | | COMPARISON: XR CHEST 2 VIEW [...] | + + + + + | [facility] | [address] | [place] [address] | | + + + + + [...] STAIN | STAIN PERFORMED ON | | [facility] | | | CYTOSPIN | | | + + + + + | GRAM STAIN | WBC'S SEEN | | [facility] | + + + + + | GRAM STAIN | NO EPITHELIAL CELLS SEEN | | [facility] | + + + + + | GRAM STAIN | NO ORGANISMS SEEN | | [facility] | + [...] | + + + + + | [facility] | [address] | [place] [address] | [phone] | | LABORATORY | [address]vd[address] | | | + + + + + | [facility] | [address] | [place] [address] | | + + + + + Pathologist consult (05/26/2018 2:12 PM) + + + + + | Component | Value | Ref Range | Performed At | + + + + + | Pathologist Consult | Comment: Review of | | [facility] | | | pleural [...] performed | | | | | [facility] [facility];[address] | | | | | [place] [address] | | | + + + + + + + + + + | Performing | Address | City/State/Zipcode | Phone Number | | Organization | | | | + + + + + | [facility] | [address] | [place] [address] | | + + + + + Cell count, Body Fluid (05/26/2018 2:12 PM) + + + + + | Component | Value | Ref Range | Performed At | + + + + + | FLUID TYPE | PLEURAL FLUID | | [facility] | + + + + + | COLOR | SAMMIE | | [facility] | + + + + + | APPEARANCE | CLOUDY | | [facility] | + + + + + | RBC'S | 3,000Comment: CORRECTED | /mm3 | [facility] | | | RESULTS CALLED TO | | | | | MARIA LUISA IN ED AT 1705 | | | | | BY LGJCORRECTED ON 05/26 | | | | | AT 1702: PREVIOUSLY | | | | | REPORTED <[id number] | | | + + + + + | TOTAL NUCLEATED | 253Comment: CORRECTED | /mm3 | [facility] | | CELLS | RESULTS CALLED TO | | | | | MARIA LUISA IN ED AT 1705 | | | | | BY LGJCORRECTED ON 05/26 | | | | | AT 1702: PREVIOUSLY | | | | | REPORTED 374 | | | + + + + + | NEUTROPHILS | 22 | % | [facility] | + + + + + | LYMPHOCYTES | 8 | % | [facility] | + + + + + | MONOCYTES/MACROPHAGE | 65 | % | [facility] | | S | | | | + + + + + | Mesothelial Cells | 5 | % | [facility] | + + + + + | CELLS COUNTED | 100Comment: Testing | | [facility] | | | performed at [facility];[address] | | | | [address];[place] | | | | | [address] | | | + + + + + + + | Specimen | + + | Body Fluid - Lung, | | Right Lower Lobe | + + + + + + + | Performing | Address | City/State/Zipcode | Phone Number | | Organization | | | | + + + + + | [facility] | [address] | [facility] [address] | | + + + + + Total Protein, Body Fluid (05/26/2018 2:12 PM) + + + + + | Component | Value | Ref Range | Performed At | + + + + + | FLUID TOTAL PROTEIN | 4.2Comment: This is not | g/dL | [facility] | | | a crew director validated | | LABORATORY | | | sample type for this | | | | | method. No reference | | | | | ranges have been | | | | | established.Testing | | | | | performed at [facility], [address] | | | | | [facility], | | | | | [place] [address] | | | + + + + + | FLUID TP SOURCE | PLEURAL FLUIDComment: | | [facility] | | | Testing performed at | | | | | [facility];[address] | | | | [address];[place] [address] | | | + + + + + + + | Specimen | + + | Body Fluid - Lung, | | Right Lower Lobe | + + + + + + + | Performing | Address | City/State/Zipcode | Phone Number | | Organization | | | | + + + + + | [facility] | [address] | [place] [address] | | + + + + + | [facility] | [address] [place] [address] | [place] [address] | [phone] | | LABORATORY | Blvd[address] | | | + + + + + Albumin, Body Fluid (05/26/2018 2:12 PM) + + + + + | Component | Value | Ref Range | Performed At | + + + + + | FLUID ALBUMIN | 2.3Comment: This is not | g/dL | [facility] | | | a crew director validated | | LABORATORY | | | sample type for this | | | | | method. No reference | | | | | ranges have been | | | | | established.Testing | | | | | performed at [facility], [address] | | | | | [facility], | | | | | [place] [address] | | | + + + + + + + | Specimen | + + | Body Fluid - Lung, | | Right Lower Lobe | + + + + + + + | Performing | Address | City/State/Zipcode | Phone Number | | Organization | | | | + + + + + | [facility] | [address] [facility] | [place] [address] | [phone] | | LABORATORY | [address]vd[address] | | | + + + + + pH, Body Fluid (05/26/2018 2:12 PM) + + + + + | Component | Value | Ref Range | Performed At | + + + + + | FLUID PH | 7.45Comment: Testing | | [facility] | | | performed at [facility];[address] | | | | | [address];[place] | | | | | [address] | | | + + + + + + + | Specimen | + + | Body Fluid - Lung, | | Right Lower Lobe | + + + + + + + | Performing | Address | City/State/Zipcode | Phone Number | | Organization | | | | + + + + + | [facility] | [address] | [place] [address] | | + + + + + Cardiac Panel (05/26/2018 12:14 PM) + + + + + | Component | Value | Ref Range | Performed At | + + + + + | WBC | 5.73 | 3.80 - 11.00 K/uL | [facility] | + + + + + | RBC | 3.32 (L) | 3.70 - 5.10 M/uL | [facility] | + + + + + | HGB | 12.1 | 11.3 - 15.5 g/dL | [facility] | + + + + + [...] (H) | 37 - 53 fl | [facility] | + + + + + | PLT | 151 | 150 - 400 K/uL | [facility] | + + + + + | MPV | 10.1 | fl | [facility] | + + + + + | DIFF TYPE | AUTOMATED | | [facility] | + + + + + | NEUTROPHILS | 72.41 | % | [facility] | + + + + + | LYMPHOCYTES | 19.04 | % | [facility] | + + + + + | MONOCYTES | 6.42 | % | [facility] | + + + + + | EOSINOPHILS | 1.13 | % | [facility] | + + + + + | BASOPHILS | 1.00 | % | [facility] | + + + + + | NEUTROPHILS ABS | 4.15 | 1.90 - 7.40 K/uL | [facility] | + + + + + | LYMPHOCYTES ABS | 1.09 | 1.00 - 3.90 K/uL | [facility] | + + + + + | MONOCYTES ABS | 0.37 | 0.00 - 0.80 K/uL | [facility] | + + + + + | EOSINOPHILS ABS | 0.06 | 0.00 - 0.50 K/uL | [facility] | + + + + + | BASOPHILS ABS | 0.06 | 0.00 - 0.10 K/uL | [facility] | + + + + + | MORPHOLOGY | 2+Comment: MACRO | | [facility] | + + + + + [...] 19 | 5 - 20 mmol/L | [facility] | + + + + + | GLUCOSE | 85 | 65 - 99 mg/dL | [facility] | + + + + + | BUN | 41 (H) | 8 - 25 mg/dL | [facility] | + + + + + | CREATININE | 7.89 (H) | 0.50 - 1.00 mg/dL | [facility] | + + + + + | BUN/CREAT | 5 | | [facility] | + + + + + | CALCIUM | 9.6 | 8.5 - 10.5 mg/dL | [facility] | + + + + + | TOTAL PROTEIN | 7.2 | 6.3 - 8.2 g/dL | [facility] | + + + + + | Albumin | 4.3 | 3.6 - 5.0 g/dL | [facility] | + + + + + | GLOBULIN | 2.9 | 1.3 - 4.9 g/dL | [facility] | + + + [...] | 10 - 45 U/L | [facility] | + + + + + | ALT | 64 | 10 - 65 U/L | [facility] | + + + + + | EGFR | 6 (L)Comment: GFR <60: | >60 mL/min/1.73m2 | [facility] | | | CHRONIC [...] the | | | | | [facility] traceable | | | | | equation. | | | + + + + + | CPK | 291 (H) | 30 - 240 U/L | [facility] | + + + + + | INR | 1.6Comment: REFERENCE | | [facility] | | | RANGE:0.9 [...] 29 | 23 - 32 seconds | [facility] | + + + + + | MMB | 7.8 (H) | 0.5 - 3.6 ng/mL | [facility] | + + + + + | CK-MB Index | 2.7Comment: CK INDEX | | [facility] | | | INTERPRETATION: [...] | | | | | performed at [facility];[address] | | | | | [address];[place] | | | | | [address] | | | + + + + + + + + + + | Performing | Address | City/State/Zipcode | Phone Number | | Organization | | | | + + + + + | [facility] | [address] | [place] [address] | | + + + + + [...] space: 4th Puncture | | | method: Zlqy-iys-mddlay catheter Ultrasound guidance: yes | | | [...] perforation, infection and | | | pain [place] protocol: Imaging studies available: yes | | [...] Performed At | + + + | [id number] Criteria Met 2 in 2 | ED [...] Count (12 mo.) Facility Visits Low Acuity [facility] | | | [facility] 1 0 [facility] 5 0 Total 6 0 | | | Note: Visits indicate total known visits. Medicaid Low Acuity Dx | | | are the number of primary diagnoses on the Medicaid's Low Acuity dx | | | list. Recent Emergency Department Visit Summary Date Facility | | | City State Type Diagnoses or Chief Complaint May 26, 2018 [facility] | | | [facility] [place] Emergency Chest pain, unspecified | | | May 26, 2018 [facility] Emergency Chief | | | Complaint: FLU SYMPTOMS May 25, 2018 [facility]3][place] | | | Emergency Chief Complaint: SOB/COUGH May 10, 2018 [facility]. | | | [place] [...] | | | disease Feb 14, 2018 [facility]3][place] Emergency | | | Functional dyspepsia Other ascites Epigastric pain | | | Allergy status to narcotic agent status Radiographic dye | | | allergy status Nicotine dependence, unspecified, uncomplicated | | | Other penitentiary (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 Sep 16, 2017 [facility] | | | [place] Emergency Chronic kidney disease, | | | unspecified Dependence on renal dialysis Pain, | | | unspecified Allergy status to narcotic agent status | | | Nicotine dependence, unspecified, uncomplicated Other rodent exterminator | | | (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 Elevated [...] record at this time. | | | [facility] Portal This patient has registered at the [facility] | [facility] Emergency Department For more information visit: | | | [email or web address] | | | [email or web address] [facility] PLEASE NOTE: 1. Any care recommendations and [...] | | completeness of information provided. 2019 J[employer] | | | [employer]. - www.[employer] | | + + + + + | Procedure Note | + + | Interface, Lab - 05/26/2018 12:00 PM PDT Formatting of this note may be different | | from the original.[id number] [id number] Met 2 in 2Security and | | SafetyNo recent Security Events currently on fileED Care GuidelinesThere are currently | | no ED Care Guidelines for this patient. Please check your facility's medical records | | system.Prescription Drug Report (12 Mo.)PDMP query found no report.E.D. Visit Count (12 | | mo.)Facility Visits Low Acuity [facility] 1 0 [facility] [place] | | Hospital 5 0 Total 6 0 Note: Visits indicate total known visits. Medicaid Low Acuity Dx | | are the number of primary diagnoses on the Medicaid's Low Acuity dx list. Recent | | Emergency Department Visit SummaryDate Facility City State Type Diagnoses or Chief | | [facility] [place] [facility] Chest pain, | | unspecified May 26, 2018 [facility] [place] [place] Emergency Chief Complaint: FLU | | SYMPTOMS May 25, 2018 [facility] [place] [place] Emergency Chief Complaint: | | SOB/COUGH May 10, 2018 [facility] [place] [place] Emergency Epistaxis Other long [...] stage renal disease Feb 14, 2018 [facility] [place] [facility] | | [place] Emergency Functional dyspepsia Other ascites Epigastric pain | | Allergy status to narcotic agent status Radiographic dye allergy status Nicotine | | dependence, unspecified, uncomplicated Other rodent exterminator (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 Waldemar | | 2017 [facility] [place] [facility] [place] Emergency Chronic kidney disease, unspecified | | Dependence on renal dialysis Pain, unspecified Allergy status to narcotic agent | | status Nicotine dependence, unspecified, uncomplicated Other rodent exterminator (current) | | 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 Elevated blood-pressure [...] | PortalThis patient has registered at the [facility] Emergency | | Department For more information visit: | | [email or web address] andnbsp | | PLEASE NOTE: 1. Any [...] or completeness of information | | provided.2019 [employer]. - wwwAdyen | | Hypertensive heart and chronic kidney disease without heart failure, with stage 5 chroni c kidney disease, or end stage renal disease | | | |Feb 14, 2018 [facility] [place] [facility] [place] Emergency | | Functional dyspepsia | | Other ascites | | Epigastric pain | | Allergy status to narcotic agent status | | Radiographic dye allergy status | | Nicotine dependence, unspecified, uncomplicated | | Other rodent exterminator (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 | | | |Sep 16, 2017 [facility] [place] [facility] [place] Emergency | | Chronic kidney disease, unspecified | | Dependence on renal dialysis | | Pain, unspecified | | Allergy status to narcotic agent status | | Nicotine dependence, unspecified, uncomplicated | | Other penitentiary (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 | | Elevated blood-pressure [...] | |This patient has registered at the [facility] Emergency Department | |For more information visit: [email or web address] | |andnbsp PLEASE NOTE: | | 1. [...] of information provided. | | | |2019 [employer]. - www.[employer] | + + + +---------+ + + [...] +------+-------+ + | MEDICARE | MEDICA | [id number] | | | [address] | | | [place] | | | | [place] [address] | | | IP-OP | | | | | + +--------+ +------+-------+ + | MEDICAID | EASTER | [id number] | | | [address] | | | N | | | | [place] | | | [place] | | | | [address] | | | DYE HOUSE SUPERVISOR | | | | | + +--------+ [...] | Self [birth year] Home: | [address] | | | al/Kvng | | 1994 | [phone] | [place] | | | [place]ron | | | [phone] | [phone] | + +--------+ +--------+ + +
--- OUTSIDE RECORDS SUMMARY | ~2018-07-18 | XMS | Encounter Summary ---
Demographics + + + | Address | [address] | | | [place] [address] | + + + | Home Phone [...] + + + | Author | [employer] [employer] | + + + | Organization | [facility] | + + + [...] Team Providers + +------+ + | Care Wire Coiler Machine Operator Name | Role | Phone | + +------+ + | Jonathan Alonso MD | PCP | | + +------+ + Reason for Visit + + + | Reason | Comments | + + + | Labs Only | | + + + Encounter Details +--------+ + + + + | Date | Type | Department | Care Team | Description | +--------+ + + + + | 06/27/ | Documentati | [facility] [place] | [place], | Labs Only | | 2019 | on Only | Cardiology Jessy | ABRIL Martínez | | | | | [address] | | | | | | [place] | | | | | | [address] | | | | | | [phone] | | | +--------+ + + + [...] | | | | | [place] [address] | | | | | | [phone] | | | | | | | | +--------+---------+ + + + as of this encounter Visit Diagnoses Not on filein this encounter"
--- OUTSIDE RECORDS SUMMARY | ~2018-07-18 | XMS | Encounter Summary ---
Demographics + + + | Address | [address] | | | [place] [address] | + + + | Home Phone [...] | | | | | [place] [address] | | + + + + + | Thania Mallory | ECON | [address] | | | | | [place] [address] | | + + + + + | Deidra Weldon | ECON | [address] | | | | | [place] | | | | | [address] | | + + + + + Care Team Providers + +------+ + | Care Piece Dyer Name | Role | Phone | [...] [address] | Brigitte [address] | Update (Ped [place] [address] | | | | [facility] | [address] | clinic check-in) | | | | Ruel Jane | [place], [place] | | | | | [place], [place] | [address] | | | | | [address] | | | | | | [phone] | | | +--------+ + + + [...] Denise | | | | | | [place] | | | | | | [address] | | | | | | [phone] | | | | | | | | +--------+ + + + + documented as of this encounter Visit Diagnoses Not on filedocumented in this encounter"
--- OUTSIDE RECORDS SUMMARY | ~2018-07-18 | XMS | Encounter Summary ---
Demographics + + + | Address | [address] | | | [place] [address] | + + + | Home Phone [...] + + + | Author | [facility] | + + + | Organization | [facility] | + + + | Address | Unknown | + + + | Phone | Unavailable | + + + Support + + + + + | Name | Relationship | Address | Phone | + + + + + | Cory Weldon | ECON | [address] | | | | | [place] [address] | | + + + + + | Thania Mallory | ECON | [address] | | | | | [place] [address] | | + + + + + | Deidra Weldon | ECON | [address] | | | | | [place] | | | | | [address] | | + + + + + Care Team Providers + +------+ + | Care Senior Game Developer Name | Role | Phone | [...] | MD [address] | | | | | ([facility]) | [address]un [place] | Elias [place] | | | | | Procedures | [address] | Road | | | | | TRANSTHORACI | [place], [place] | Mailcode: | | | | | C | [address] | [id number] | | | | | ECHOCARDIOGR | Phone: | Alexander | | | | | IMANI, PEDS | [phone] | [place], [place] | | | | | | Fax: | [address] | | | | | | [phone] | Phone: | | | | | | | [phone] | | | | | | | Fax: | | | | | | | [phone] | +--------+--------+ + + + + Diagnostic [...] | | conchita | [address] | | | | | ([facility]) | Shun Griffin | Eli[address] [place] | | | | | Procedures | Park | Road | | | | | TRANSTHORACI | [place], [place] | Mailcode: | | | | | C | [address] | [id number] | | | | | ECHOCARDIOGR | Phone: | Alexander | | | | | KAJAL DIALLOS | [phone] | [place], [place] | | | | | | Fax: | [address] | | | | | | [phone] | Phone: | | | | | | | [phone] | | | | | | | Fax: | | | | | | | [phone] | +--------+--------+ + + + + Reason [...] | | conchita | [address] | [address] | | | | | ([facility]) | Shun Griffin | Elias Elizondo | | | | | Procedures | [address] | Road | | | | | TRANSTHORACI | [place], [place] | Mailcode: | | | | | C | [address] | [id number] | | | | | ECHOCARDIOGR | Phone: | Alexander | | | | | AM, PEDS | [phone] | [place], [place] | | | | | | Fax: | [address] | | | | | | [phone] | Phone: | | | | | | | [phone] | | | | | | | Fax: | | | | | | | [phone] | +--------+--------+ + + + + Encounter Details +--------+ + + + + | Date | Type | Department | Care Team | Description | +--------+ + + + + | 12/20/ | Hospital | Pediatric Echo Lab | | | | 2012 | Encounter | at [facility] [address] | | | | | [address] | | | | | | Road Mailcode: | | | | | | [id number] [place] | | | | | | [place], [place] | | | | | | [address] | | | | | | [phone] | | | +--------+ + + + [...] Denise | | | | | | [place], [place] | | | | | | [address] | | | | | | [phone] | | | | | | | [...]
--- OUTSIDE RECORDS SUMMARY | ~2018-07-18 | XMS | Encounter Summary ---
Demographics + + + | Address | [address] | | | [place] [address] | + + + | Home Phone [...] | | | | | [place] [address] | | + + + + + | Thania Mallory | ECON | [address] | | | | | [place] [address] | | + + + + + | Deidra Weldon | ECON | [address] | | | | | [place] | | | | | [address] | | + + + + + Care Team Providers + +------+ + | Care Tire Technician Name | Role | Phone | [...] | | | | | [address] [facility] | [facility] | | | | | Road [place], [place] | [place], [place] | | | | | [address] | [address] | | | | | [phone] | | | +--------+ + + + [...] [place] | | | | | | [address] | | | | | | [phone] | | | | | | | | +--------+ + + + + documented as of this encounter Visit Diagnoses Not on filedocumented in this encounter"
--- OUTSIDE RECORDS SUMMARY | ~2018-07-18 | XMS | Encounter Summary ---
Demographics + + + | Address | [address] | | | [place] [address] | + + + | Home Phone [...] + + + | Author | [facility] | + + + | Organization | [facility] | + + + | Address | Unknown | + + + | Phone | Unavailable | + + + Support + + + + + | Name | Relationship | Address | Phone | + + + + + | Cory Weldon | ECON | [address] | | | | | [place] [address] | | + + + + + | Thania Mallory | ECON | [address] | | | | | [place] [address] | | + + + + + | Deidra Weldon | ECON | [address] | | | | | [place] | | | | | [address] | | + + + + + Care Team Providers + +------+ + | Care Vascular Ultrasound Technician Name | Role | Phone | [...] [place] | | | | | | [address] | | | | | | [phone] | | | | | | | | +--------+ + + + + documented as of this encounter Visit Diagnoses Not on filedocumented in this encounter"
--- OUTSIDE RECORDS SUMMARY | ~2018-07-18 | XMS | Encounter Summary ---
Demographics + + + | Address | [address] | | | [place] [address] | + + + | Home Phone [...] [address] | | | | | [place] [address] | | + + + + + | Thania Mallory | ECON | [address] | | | | | [place] [address] | | + + + + + | Deidra Weldon | ECON | [address] | | | | | [place] | | | | | [address] | | + + + + + Care Team Providers + +------+ + | Care Screen Machine Operator Name | Role | Phone | + +------+ + | Shahid Camargo MD | PCP | Unavailable | + +------+ + Encounter Details +--------+ + + + + | Date | Type | Department | Care Team | Description | +--------+ + + + + | 12/19/ | Document-Sc | UNKNOWN DEPARTMENT | Unknown . | | | 2012 | ann | [address] | | | | | | [facility] | | | | | | [place], [place] | | | | | | [address] | | | +--------+ + + + [...] Denise | | | | | | [place], [place] | | | | | | [address] | | | | | | [phone] | | | | | | | | +--------+ + + + + documented as of this encounter Visit Diagnoses Not on filedocumented in this encounter"
--- OUTSIDE RECORDS SUMMARY | ~2018-07-18 | XMS | Encounter Summary ---
Demographics + + + | Address | [address] | | | [place] [address] | + + + | Home Phone [...] | | | | | [place] [address] | | + + + + + | Thania Mallory | ECON | [address] | | | | | [place] [address] | | + + + + + | Deidra Weldon | ECON | [address] | | | | | [place] | | | | | [address] | | + + + + + Care Team Providers + +------+ + | Care Veterinarian Laboratory Animal Care Name | Role | Phone | + [...] [place] | | | | | | [employer] [facility] | | | | | | [place], [place] | | | | | | [address] | | | +--------+ + + + [...] | | | | | | [place], [place] | | | | | | [address] | | | | | | [phone] | | | | | | | [...] DANILO - | [address] | [place] [address] | | | IMMUNOGENETICS/TRANS | [address] | | | | [facility] | | | | + + + + + documented in this encounter Visit Diagnoses Not on filedocumented in this encounter"
--- OUTSIDE RECORDS SUMMARY | ~2018-07-18 | XMS | Encounter Summary ---
Demographics + + + | Address | [address] | | | [place] [address] | + + + | Home Phone [...] | | | | | [place] [address] | | + + + + + | Thania Mallory | ECON | [address] | | | | | [place] [address] | | + + + + + | Deidra Weldon | ECON | [address] | | | | | [place] | | | | | [address] | | + + + + + Care Team Providers + +------+ + | Care Outreach Rep Name | Role | Phone | [...] | Update | | | | [address] [facility] | [facility] | | | | | Road [place], [place] | [place], [place] | | | | | [address] | [address] | | | | | [phone] | | | +--------+ + + + [...] Denise | | | | | | [place] | | | | | | [address] | | | | | | [phone] | | | | | | | | +--------+ + + + + documented as of this encounter Visit Diagnoses Not on filedocumented in this encounter"
--- OUTSIDE RECORDS SUMMARY | ~2018-07-18 | XMS | Encounter Summary ---
Demographics + + + | Address | [address] | | | [place] [address] | + + + | Home Phone [...] Author + + + | Author | [facility] | + + + | Organization | [facility] | + + + | Address | Unknown | + + + | Phone | Unavailable | + + + Support + + + + + | Name | Relationship | Address | Phone | + + + + + | Cory Weldon | ECON | [address] | | | | | [place] [address] | | + + + + + | Thania Mallory | ECON | [address] | | | | | [place] [address] | | + + + + + | Deidra Weldon | ECON | [address] | | | | | [place] | | | | | [address] | | + + + + + Care Team Providers + +------+ + | Care Hamper Maker Name | Role | Phone | [...] Update | | | | [place] | [facility] | | | | | [facility] | [place], [place] | | | | | [address] | [address] | | | | | [facility] | | | | | | Mailcode: DCH7 | | | | | | [place] | | | | | | [place], [place] | | | | | | [address] | | | | | | [phone] | | | +--------+ + + + [...] 2022 | Encounter | | [address] | | | | | | [place] | | | | | | [address] | | | | | | [phone] | | | | | | | | +--------+ + + + + documented as of this encounter Visit Diagnoses Not on filedocumented in this encounter"
--- OUTSIDE RECORDS SUMMARY | ~2018-07-18 | XMS | Encounter Summary ---
Demographics + + + | Address | [address] | | | [place] [address] | + + + | Home Phone [...] + + + | Author | [facility] | + + + | Organization [...] Team Providers + +------+ + | Care Icu Nurse Name | Role | Phone | + +------+ + | Jonathan Alonso MD | PCP | | + +------+ + Reason for Visit +--------+ + | Reason | Comments | +--------+ + | Other | [facility] | +--------+ + Encounter Details +--------+ + + + + | Date | Type | Department | Care Team | Description | +--------+ + + + + | 07/04/ | Documentati | ADIEL Hutchinson | Daniela Alejandre | [place] [facility] | | 2019 | on Only | Cardiology Jessy Castellanos MA | [facility] ) | | | | [address] | | | | | | [place] | | | | | | [address] | | | | | | [phone] | | | +--------+ + + + [...] Álvarez | | | | | | [place] [address] | | | | | | [phone] | | | | | | | | +--------+---------+ + + + as of this encounter Visit Diagnoses Not on filein this encounter"
--- OUTSIDE RECORDS SUMMARY | ~2018-07-18 | XMS | Encounter Summary ---
Demographics + + + | Address | [address] | | | [place] [address] | + + + | Home Phone [...] Author + + + | Author | [facility] | + + + | Organization | [facility] | + + + | Address [...] | | | | | [place] [address] | | + + + + + | Deidra Weldon | ECON | [address] | | | | | [place] | | | | | [address] | | + + + + + Care Team Providers + +------+ + | Care Civilian Jail Officer Name | Role | Phone | [...] | Requested | | | | [facility] | [facility] | | | | | Road [place], [place] | [place], [place] | | | | | [address] | [address] | | | | | [phone] | | | +--------+ + + + [...] [place] | | | | | | [address] | | | | | | [phone] | | | | | | | | +--------+ + + + + documented as of this encounter Visit Diagnoses Not on filedocumented in this encounter"
--- OUTSIDE RECORDS SUMMARY | ~2018-07-18 | XMS | Encounter Summary ---
Demographics + + + | Address | [address] | | | [place] [address] | + + + | Home Phone [...] | | | | | [place] [address] | | + + + + + | Thania Mallory | ECON | [address] | | | | | [place] [address] | | + + + + + | Deidra Weldon | ECON | [address] | | | | | [place] | | | | | [address] | | + + + + + Care Team Providers + +------+ + | Care Vibratory Pile Driver Name | Role | Phone | [...] | VERIFICATION) | | | | [facility] | [facility] | | | | | Road [place], [place] | [place], [place] | | | | | [address] | [address] | | | | | [phone] | | | +--------+ + + + [...] Denise | | | | | | [place], [place] | | | | | | [address] | | | | | | [phone] | | | | | | | | +--------+ + + + + documented as of this encounter Visit Diagnoses Not on filedocumented in this encounter"
--- OUTSIDE RECORDS SUMMARY | ~2018-07-18 | XMS | Encounter Summary ---
Demographics + + + | Address | [address] | | | [place] [address] | + + + | Home Phone [...] | | | | | [place] [address] | | + + + + + | Thania Mallory | ECON | [address] | | | | | [place] [address] | | + + + + + | Deidra Weldon | ECON | [address] | | | | | [place] | | | | | [address] | | + + + + + Care Team Providers + +------+ + | Care Program Clerk Name | Role | Phone | [...] | | Jonathan Gallagher, | [address] | | | | | | [address] | [address] | | | | | | Keven | [address] [place] | | | | | | [facility] | Road | | | | | | [address] | Mailcode: | | | | | | [address] | [address] | | | | | | [place] | [place] | | | | | | [place] | [place], [place] | | | | | | [address] | [address] | | | | | | Phone: | Phone: | | | | | | [phone] | [phone] | | | | | | Fax: | | | | | | | [phone] | | +--------+--------+ + + + + Encounter Details +--------+---------+ + + + | Date | Type | Department | Care Team | Description | +--------+---------+ + + + | 05/24/ | Office | Specialty Clinics | Sudhakar Joy | HSP | | 2017 | Visit | at [facility] [address] | DMD [address] | ([facility] | | | | [facility] | [address] | purpura) nephritis | | | | Mailcode: [facility] | [place], [place] | (Primary Dx); Anemia | | | | [address] | [address] | of chronic kidney | | | | [place], [place] | [phone] | failure, stage 5 | | | | [address] | | ([facility]) | | | | [phone] | | | +--------+---------+ + + + [...] not be referred for transplant. Her adult communications designer could refer her to adult transplant when [...] [address] Mail code [facility] [place], [place] [id number] documented in this encounter Plan of Treatment +--------+ + + + + | Date | Type | Specialty | Care Team | Description | +--------+ + + + + | 05/04/ | Hospital | Adult Acute Care | El Starr MD | | | 2022 | Encounter | | [address] | | | | | | [place], [place] | | | | | | [address] | | | | | | [phone] | | | | | | | [...]
--- OUTSIDE RECORDS SUMMARY | ~2018-07-18 | XMS | Encounter Summary ---
Demographics + + + | Address | [address] | | | [place] [address] | + + + | Home Phone [...] + + + | Author | [facility] | + + + | Organization | [facility] | + + + | Address | Unknown | + + + | Phone | Unavailable | + + + Support + + + + + | Name | Relationship | Address | Phone | + + + + + | Cory Weldon | ECON | [address] | | | | | [place] [address] | | + + + + + | Thania Mallory | ECON | [address] | | | | | [place] [address] | | + + + + + | Deidra Weldon | ECON | [address] | | | | | [place] | | | | | [address] | | + + + + + Care Team Providers + +------+ + | Care Parts Processor Name | Role | Phone | + [...] (Close | | | | [facility] | [facility] | referral) | | | | Road [place], [place] | [place], [place] | | | | | [address] | [address] | | | | | [phone] | | | +--------+ + + + [...] [place] | | | | | | [address] | | | | | | [phone] | | | | | | | | +--------+ + + + + documented as of this encounter Visit Diagnoses Not on filedocumented in this encounter"
--- OUTSIDE RECORDS SUMMARY | ~2018-07-18 | XMS | Encounter Summary ---
Demographics + + + | Address | [address] | | | [place] [address] | + + + | Home Phone [...] | | | | | [place] [address] | | + + + + + | Thania Mallory | ECON | [address] | | | | | [place] [address] | | + + + + + | Deidra Weldon | ECON | [address] | | | | | [place] | | | | | [address] | | + + + + + Care Team Providers + +------+ + | Care User Experience Researcher Name | Role | Phone | + [...] | Closed | | Pediatric | | Gvain, | Karthikeyan Renal | | | | Nephrology | | Jonathan Gallagher, | Sandra [address] | | | | | | [address] | [address] | | | | | | [place] | [place] | | | | | | [facility] | Road | | | | | | [address] | Mailcode: | | | | | | [address] | [address] | | | | | | [place] | [place] | | | | | | [place] | [place], [place] | | | | | | [address] | [address] | | | | | | Phone: | Phone: | | | | | | [phone] | [phone] | | | | | | Fax: | | | | | | | [phone] | | +--------+--------+ + + + + Encounter Details +--------+---------+ + + + | Date | Type | Department | Care Team | Description | +--------+---------+ + + + | 05/11/ | Office | Specialty Clinics | Sudhakar Joy | HSP | | 2016 | Visit | at [facility] [address] | DMD [address] | ([facility] | | | | [facility] | [address] | purpura) nephritis | | | | Mailcode: [facility] | [place], [place] | (Primary Dx); Anemia | | | | [place] | [address] | of chronic kidney | | | | [place], [place] | [phone] | failure, stage 5 | | | | [address] | | ([facility]) | | | | [phone] | | | +--------+---------+ + + + [...] [address] Mail code [facility] [place], [place] [address] Estrella Brennan MA - 05/12/2015 10:48 AM [...] Denise | | | | | | [place], [place] | | | | | | [address] | | | | | | [phone] | | | | | | | [...]
--- OUTSIDE RECORDS SUMMARY | ~2018-07-18 | XMS | Encounter Summary ---
Demographics + + + | Address | [address] | | | [place] [address] | + + + | Home Phone [...] | | | | | [place] [address] | | + + + + + | Thania Mallory | ECON | [address] | | | | | [place] [address] | | + + + + + | Deidra Weldon | ECON | [address] | | | | | [place] | | | | | [address] | | + + + + + Care Team Providers + +------+ + | Care Managing Director Name | Role | Phone | [...] | list) | | | | [facility] | [facility] | | | | | Road [place], [place] | [place], [place] | | | | | [address] | [address] | | | | | [phone] | | | +--------+ + + + [...] Denise | | | | | | [place] | | | | | | [address] | | | | | | [phone] | | | | | | | | +--------+ + + + + documented as of this encounter Visit Diagnoses Not on filedocumented in this encounter"
--- OUTSIDE RECORDS SUMMARY | ~2018-07-18 | XMS | Encounter Summary ---
Demographics + + + | Address | [address] | | | [place] [address] | + + + | Home Phone [...] + + + | Author | [facility] | + + + | Organization | [facility] | + + + | Address | Unknown | + + + | Phone | Unavailable | + + + Support + + + + + | Name | Relationship | Address | Phone | + + + + + | Cory Weldon | ECON | [address] | | | | | [place] [address] | | + + + + + | Thania Mallory | ECON | [address] | | | | | [place] [address] | | + + + + + | Deidra Weldon | ECON | [address] | | | | | [place] | | | | | [address] | | + + + + + Care Team Providers + +------+ + | Care Chain Pegger Name | Role | Phone | + [...] | | | | at [facility] | [facility] | | | | | [address] | [place] [address] | | | | | [facility] | | | | | | Mailcode: OP12B [facility] | | | | | | [facility] | | | | | | [facility], | | | | | | [place] [address] | | | | | | [phone] | | | +--------+ + + + [...] | | | | | | [place], [place] | | | | | | [address] | | | | | | [phone] | | | | | | | [...] | e | 11:49 AM | MEDICARE [id number] | procedure are in the | | [...] view image for the detailed interpretation from [employer] results. | CARDIOLOGY | + + + + + | Procedure Note | + + | Interface, Cardiology Results - 12/21/2012 9:38 AM PDT Please click on view image | | for the detailed interpretation from [email or web address] results. 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
--- OUTSIDE RECORDS SUMMARY | ~2018-07-18 | XMS | Encounter Summary ---
Demographics + + + | Address | [address] | | | [place] [address] | + + + | Home Phone [...] + | Cory Weldon | ECON | [address] | | | | | [place] [address] | | + + + + + | Thania Mallory | ECON | [address] | | | | | [place] [address] | | + + + + + | Deidra Weldon | ECON | [address] | | | | | [place] | | | | | [address] | | + + + + + Care Team Providers + +------+ + | Care Coating Inspector Name | Role | Phone | [...] | Decision | | | | [facility] | [facility] | | | | | Road [place], [place] | [place], [place] | | | | | [address] | [address] | | | | | [phone] | | | +--------+ + + + [...] [place] | | | | | | [address] | | | | | | [phone] | | | | | | | | +--------+ + + + + documented as of this encounter Visit Diagnoses Not on filedocumented in this encounter"
--- OUTSIDE RECORDS SUMMARY | ~2018-07-18 | XMS | Encounter Summary ---
Demographics + + + | Address | [address] | | | [place] [address] | + + + | Home Phone [...] + + + | Author | [facility] [employer] | + + + | Organization | [facility] | [...] Team Providers + +------+ + | Care Chiller Hand Name | Role | Phone | [...] | 2019 | Procedure | ECHO | MD [address], | type | | | | | [address] [place], | | | | | | [place] [address] | | | | | | [phone] | | | | | | | [...] Description | +--------+---------+ + + + | 05/16/ | Office | Cardiology | Gretchen Teran | | | 2019 | Visit | | [address] | | | | | | [address] [place] | | | | | | [place] [address] | | | | | | [phone] | | | | | | | [...] DARA WELDON Date of : 1995 | [facility] | | Performing Physician: René [...] MV A Shahid: 0.39 m/s MV Dec [place]: 9.46 m/s2 | | | MV DecT: 106.01 ms MV E Shahid: 1.00 m/s MV E/A Ratio: | | | 2.54 E/E' Sept: 23.82 E' Lat: 0.08 m/s E' Sept: 0.04 | | | m/s RAP: 15 mmHg RV S': 0.11 m/s RVSP: 67.64 mmHg TR | | | maxP.64 mmHg TR Vmax: 3.61 m/s Carbon Paper Coating Machine Setter: | | | Authenticated by: René Noonan MD Report Date/Time: -- | | | [id number]:15:25 | | + + + + + | Procedure Note | + + | Sonido Steele Results In - 06/12/2018 4:15 PM PDT Patient Name: Anders WELDON of | | : 1995Accession: [id number] Physician: René Noonan MD | | INDICATIONS [...] (A-L): 31.60 | | ml/m2LAAs A2C: 18.56 my8SUZRA A-L A2C: 58.49 mlLAESV MOD A2C: 54.57 mlLALs A2C: | | 5.00 cmLAAs A4C: 17.96 nn3OSBDP A-L A4C: 52.99 mlLAESV MOD A4C: 44.93 mlLALs A4C: | | 5.18 cmLAESV(MOD BP): 49.83 mlRAAs: 18.33 yj1NBWDI A-L: 57.01 mlRAESV MOD: | | 56.24 mlRALs: 5.02 cmTAPSE: 1.98 cmAV Env.Ti: 227.35 msAV maxP.22 mmHgAV | | meanP.25 mmHgAV Vmax: 1.59 m/Elizabeth Vmean: 1.06 m/Elizabeth VTI: 24.30 cmAVA Vmax: | | 2.68 cm2AVA (VTI): 2.73 rn4CPNU Vmax: 0.00 cm2/m2AVAI (VTI): 0.00 cm2/m2LVOT | | Env.Ti: 210.72 msLVOT maxP.99 mmHgLVOT meanP.87 mmHgLVSI Dopp: 37.17 | | ml/m2LVSV Dopp: 66.54 mlLVOT Vmax: 1.41 m/sLVOT Vmean: 1.03 m/sLVOT VTI: 21.88 | | cmMV A Shahid: 0.39 m/sMV Dec Cla[place]: 9.46 m/s2MV DecT: 106.01 msMV E Shahid: 1.00 | | m/sMV E/A Ratio: 2.54 E/E' Sept: 23.82 E' Lat: 0.08 m/sE' Sept: 0.04 m/sRAP: | | 15 mmHgRV S': 0.11 m/sRVSP: 67.64 mmHgTR maxP.64 mmHgTR Vmax: 3.61 | | m/sSonographer: Authenticated by: René Noonan MDReport Date/Time: -- | | [id number]:15:25IMPRESSION:1. Overall left ventricular systolic function is | [...] A Shahid: 0.39 m/s | |MV Dec Cla[place]: 9.46 m/s2 | |MV DecT: 106.01 ms | |MV E Shahid: 1.00 m/s | |MV E/A Ratio: 2.54 | |E/E' Sept: 23.82 | |E' Lat: 0.08 m/s | |E' Sept: 0.04 m/s | |RAP: 15 mmHg | |RV S': 0.11 m/s | |RVSP: 67.64 mmHg | |TR maxP.64 mmHg | |TR Vmax: 3.61 m/s | | | |Carbon Paper Coating Machine Setter: | |Authenticated by: René Noonan MD | |Report Date/Time: -- [id number]:15:25 | | | |IMPRESSION: | |1. Overall [...] [facility] | [address] | [place] [address] | | + + + + + in this encounter Visit Diagnoses + + | Diagnosis | + + | Dyspnea, unspecified type | + +"
--- OUTSIDE RECORDS SUMMARY | ~2018-07-18 | XMS | Encounter Summary ---
Demographics + + + | Address | [address] | | | [place] [address] | + + + | Home Phone [...] | | | | | [place] [address] | | + + + + + | Thania Mallory | ECON | [address] | | | | | [place] [address] | | + + + + + | Deidra Weldon | ECON | [address] | | | | | [place] | | | | | [address] | | + + + + + Care Team Providers + +------+ + | Care Belt Operator Name | Role | Phone | [...] | 02/21/ | Telephone | Transplant | AsafKelsi thompson, | Other (Transplant | | 2012 | | Coordinators [address] | RN [address] [facility] | Committee | | | | [facility] | [facility] | recommendations) | | | | Road [place], [place] | [place], [place] | | | | | [address] | [address] | | | | | [phone] | | | +--------+ + + + [...] Denise | | | | | | [place], [place] | | | | | | [address] | | | | | | [phone] | | | | | | | | +--------+ + + + + documented as of this encounter Visit Diagnoses Not on filedocumented in this encounter"
--- OUTSIDE RECORDS SUMMARY | ~2018-07-18 | XMS | Encounter Summary ---
Demographics + + + | Address | [address] | | | [place] [address] [...] + + + | Author | [facility] | + + + | Organization | [facility] | + + + [...] Team Providers + +------+ + | Care Cook Ice Cream Name | Role | Phone | + [...] | 2019 | on Only | Cardiology [place] | | Labs 06/20/2018) | | | | [address] | | | | | | [address] | | | | | | [place] [address] | | | | | | [phone] | | | +--------+ + + + [...] Álvarez | | | | | | [place] [address] | | | | | | [phone] | | | | | | | | +--------+---------+ + + + as of this encounter Visit Diagnoses Not on filein this encounter"
--- OUTSIDE RECORDS SUMMARY | ~2018-07-18 | XMS | Encounter Summary ---
Demographics + + + | Address | [address] | | | [place] [address] | + + + | Home Phone [...] | | | | | [place] [address] | | + + + + + | Thania Mallory | ECON | [address] | | | | | [place] [address] | | + + + + + | Deidra Weldon | ECON | [address] | | | | | [place] | | | | | [address] | | + + + + + Care Team Providers + +------+ + | Care Bookkeeper Name | Role | Phone | + [...] | | [address] | [facility] | | | | | [place] [address] | [place] [address] | | | | | | [phone] | | | | | | | [...] from patient and her family Pharmacy Preferences: [facility] [address] [place] [address] Updated Outpatient Medications: Current Medication List Name [...] questions regarding this information contact pharmacy, pager #[phone] Thank you, Juan David Batres Pager [phone] signed by Juan David Batres PharmD at 12/26/2012 9:18 AM PDTdocumented in this encounter Plan of Treatment +--------+ + + + + | Date | Type | Specialty | Care Team | Description | +--------+ + + + + | 05/04/ | Hospital | Adult Acute Care | El Starr MD | | | 2022 | Encounter | | [address] | | | | | | [place], [place] | | | | | | [address] | | | | | | [phone] | | | | | | | | +--------+ + + + + documented as of this encounter Visit Diagnoses Not on filedocumented in this encounter"
--- OUTSIDE RECORDS SUMMARY | ~2018-07-18 | XMS | Encounter Summary ---
Demographics + + + | Address | [address] | | | [place] [address] | + + + | Home Phone [...] | | | | | [place] [address] | | + + + + + | Thania Mallory | ECON | [address] | | | | | [place] [address] | | + + + + + | Deidra Weldon | ECON | [address] | | | | | [place] | | | | | [address] | | + + + + + Care Team Providers + +------+ + | Care Irrigation District Manager Name | Role | Phone | [...] | | [address] | [facility], | | | | | [facility] | [place] [address] | | | | | [place], [place] | [phone] | | | | | [address] | | | +--------+ + + + [...] Denise | | | | | | [place], [place] | | | | | | [address] | | | | | | [phone] | | | | | | | | +--------+ + + + + documented as of this encounter Visit Diagnoses Not on filedocumented in this encounter"
--- OUTSIDE RECORDS SUMMARY | ~2018-07-18 | XMS | Encounter Summary ---
Demographics + + + | Address | [address] | | | [place] [address] | + + + | Home Phone [...] + + | Author | [facility] | + + + | Organization | [facility] | + + + | Address | Unknown | + + + | Phone | Unavailable | + + + Support + + + + + | Name | Relationship | Address | Phone | + + + + + | Cory Weldon | ECON | [address] | | | | | [place] [address] | | + + + + + | Thania Mallory | ECON | [address] | | | | | [place] [address] | | + + + + + | Deidra Weldon | ECON | [address] | | | | | [place] | | | | | [address] | | + + + + + Care Team Providers + +------+ + | Care Novelty Dipper Name | Role | Phone | + [...] [address] | RN [address] [facility] | | | | | [facility] | [facility] | | | | | Road [place], [place] | [place], [place] | | | | | [address] | [address] | | | | | [phone] | | | +--------+ + + + [...] Denise | | | | | | [place], [place] | | | | | | [address] | | | | | | [phone] | | | | | | | | +--------+ + + + + documented as of this encounter Visit Diagnoses Not on filedocumented in this encounter"
--- OUTSIDE RECORDS SUMMARY | ~2018-07-18 | XMS | Encounter Summary ---
Demographics + + + | Address | [address] | | | [place] [address] | + + + | Home Phone [...] | | | | | [place] [address] | | + + + + + | Thania Mallory | ECON | [address] | | | | | [place] [address] | | + + + + + | Deidra Weldon | ECON | [address] | | | | | [place] | | | | | [address] | | + + + + + Care Team Providers + +------+ + | Care Gut Puller Name | Role | Phone | + [...] | | Jonathan Gallagher, | [address] | | | | | | [address] | [address] | | | | | | Keven | Elias [place] | | | | | | [facility] | Road | | | | | | [address] | Mailcode: | | | | | | [address]even Drew | [facility] | | | | | | [place] | [place] | | | | | | [place] | [place], [place] | | | | | | [address] | [address] | | | | | | Phone: | Phone: | | | | | | [phone] | [phone] | | | | | | Fax: | | | | | | | [phone] | | +--------+--------+ + + + + Encounter Details +--------+---------+ + + + | Date | Type | Department | Care Team | Description | +--------+---------+ + + + | 05/24/ | Office | Specialty Clinics | Sudhakar Joy | HSP | | 2017 | Visit | at [facility] [address] | DMD [address] | ([facility] | | | | [facility] | [address] | purpura) nephritis | | | | Mailcode: [facility] | [place], [place] | (Primary Dx); Anemia | | | | [place] | [address] | of chronic kidney | | | | [place], [place] | [phone] | failure, stage 5 | | | | [address] | | ([facility]) | | | | [phone] | | | +--------+---------+ + + + [...] not be referred for transplant. Her adult figure skater could refer her to adult transplant when [...] [address] Mail code [facility]-P [place], [place] [id number] documented in this encounter Plan of Treatment +--------+ + + + + | Date | Type | Specialty | Care Team | Description | +--------+ + + + + | 05/04/ | Hospital | Adult Acute Care | El Starr MD | | | 2022 | Encounter | | [address] | | | | | | [place], [place] | | | | | | [address] | | | | | | [phone] | | | | | | | [...]
--- OUTSIDE RECORDS SUMMARY | ~2018-07-18 | XMS | Encounter Summary ---
Demographics + + + | Address | [address] | | | [place] [address] | + + + | Home Phone [...] Author | [facility] | | | and Josephana | + + + | Organization | [facility] | | | [...] Team Providers + +------+ + | Care Non Licensed Nuclear Plant Operator Name | Role | Phone [...] | | KIDNEY TRANSPLANT | EZRA [address] [place], | | | | | [address] [facility] [address] | | | | | [address] [place] | [phone] | | | | | [address] | | | | | | [phone] | | | +--------+ + + + [...] this encounter Progress Elodia Velasquez - 06/13/2018 1358 PDTReferral Called lvm documented in this e ncounter Plan of Treatment Not on filedocumented as of this encounter Visit Diagnoses Not on filedocumented in this encounter"
--- OUTSIDE RECORDS SUMMARY | ~2018-07-18 | XMS | Encounter Summary ---
Demographics + + + | Address | [address] | | | [place] [address] | + + + | Home Phone [...] | | | | | [place] [address] | | + + + + + | Thania Mallory | ECON | [address] | | | | | [place] [address] | | + + + + + | Deidra Weldon | ECON | [address] | | | | | [place] | | | | | [address] | | + + + + + Care Team Providers + +------+ + | Care Legal Biller Name | Role | Phone | + +------+ + | Shahid Camargo MD | PCP | Unavailable | + +------+ + Encounter Details +--------+ + + + + | Date | Type | Department | Care Team | Description | +--------+ + + + + | 12/20/ | Hospital | Radiology at [facility] | | | | 2012 | Encounter | 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
--- OUTSIDE RECORDS SUMMARY | ~2018-07-18 | XMS | Encounter Summary ---
Demographics + + + | Address | [address] | | | [place] [address] | + + + | Home Phone [...] | | | | | [place] [address] | | + + + + + | Thania Mallory | ECON | [address] | | | | | [place] [address] | | + + + + + | Deidra Weldon | ECON | [address] | | | | | [place] | | | | | [address] | | + + + + + Care Team Providers + +------+ + | Care Mill Tender Second Operator Name | Role | Phone | + +------+ + | Jonathan Alonso MD | PCP | | + +------+ + Encounter Details +--------+ + + + + | Date | Type | Department | Care Team | Description | +--------+ + + + + | 07/14/ | Abstract | Transplant | Jesus Edmond, | | | 2016 | | Coordinators [address] | [address] | | | | | [address] [facility] | [facility] | | | | | Road [place], [place] | [place], [place] | | | | | [address] | [address] | | | | | [phone] | [phone] | | | | | | | [...] Denise | | | | | | [place], [place] | | | | | | [address] | | | | | | [phone] | | | | | | | | +--------+ + + + + documented as of this encounter Visit Diagnoses Not on filedocumented in this encounter"
--- OUTSIDE RECORDS SUMMARY | ~2018-07-18 | XMS | Encounter Summary ---
Demographics + + + | Address | [address] | | | [place] [address] | + + + | Home Phone [...] | | | | | [place] [address] | | + + + + + | Thania Mallory | ECON | [address] | | | | | [place] [address] | | + + + + + | Deidra Weldon | ECON | [address] | | | | | [place] | | | | | [address] | | + + + + + Care Team Providers + +------+ + | Care Sleep Technologist Name | Role | Phone | + +------+ + | Jonathan Alonso MD | PCP | | + +------+ + Encounter Details +--------+ + + + + | Date | Type | Department | Care Team | Description | +--------+ + + + + | 05/24/ | Abstract | Pediatric | Sudhakar Joy | | | 2017 | | Nephrology at | MD Emanuel [address] | | | | | [place] | [facility] | | | | | [facility] | [place], [place] | | | | | [address] [facility] | [address] | | | | | [facility] | [phone] | | | | | Mailcode: D[facility]7 | | | | | | [place] | | | | | | [place], [place] | | | | | | [address] | | | | | | [phone] | | | +--------+ + + + [...] | | | | | | [place], [place] | | | | | | [address] | | | | | | [phone] | | | | | | | [...] + | HEMOGLOBIN | 11.6 (A) | 121999 - 15 | BLUE [...] [address] | [place] [address] | [phone] | | HOSPITAL | | | | [...] | [address] | [place] [address] | [phone] | | HOSPITAL | | | | + + + + + PEDS NEPHROLOGY EXTERNAL RESULTS PANEL (03/09/2016) + + [...] [address] | [place] [address] | [phone] | | HOSPITAL | | | | [...] | [address] | [place] [address] | [phone] | | HOSPITAL | | | | [...] + | HEMOGLOBIN | 11.1 (A) | 121999 - 15 | BLUE [...] | [address] | [place] [address] | [phone] | | HOSPITAL | | | | [...] + | HEMOGLOBIN | 12.1 (A) | 12.1999 - 15 | BLUE [...] + + | ELADIA [facility]MAN | [address] | [place] [address] | [phone] | | HOSPITAL | | | | + + + + + documented in this encounter Visit Diagnoses Not on filedocumented in this encounter"
--- OUTSIDE RECORDS SUMMARY | ~2018-07-18 | XMS | Encounter Summary ---
Demographics + + + | Address | [address] | | | [place] [address] | + + + | Home Phone [...] | | | | | [place] [address] | | + + + + + | Thania Mallory | ECON | [address] | | | | | [place] [address] | | + + + + + | Deidra Weldon | ECON | [address] | | | | | [place] | | | | | [address] | | + + + + + Care Team Providers + +------+ + | Care Director Of Online Education Name | Role | Phone | + [...] Update | | | | [place] | [facility] | | | | | [facility] | [place], [place] | | | | | [address] | [address] | | | | | [facility] | | | | | | Mailcode: DCH7 | | | | | | [place] | | | | | | [place], [place] | | | | | | [address] | | | | | | [phone] | | | +--------+ + + + [...] Denise | | | | | | [place] | | | | | | [address] | | | | | | [phone] | | | | | | | | +--------+ + + + + documented as of this encounter Visit Diagnoses Not on filedocumented in this encounter"
--- OUTSIDE RECORDS SUMMARY | ~2018-07-18 | XMS | Encounter Summary ---
Demographics + + + | Address | [address] | | | [place] [address] | + + + | Home Phone [...] | | | | | [place] [address] | | + + + + + | Thania Mallory | ECON | [address] | | | | | [place] [address] | | + + + + + | Deidra Weldon | ECON | [address] | | | | | [place] | | | | | [address] | | + + + + + Care Team Providers + +------+ + | Care Curing Press Operator Name | Role | Phone [...] Sudhakar Joy | Laboratory Test | | 2016 | | Nephrology at | MD Emanuel [address] [facility] | Requested (UDS) | | | | [place] | [facility] | | | | | [facility] | [place], [place] | | | | | [address] [facility] | [address] | | | | | [facility] | [phone] | | | | | Mailcode: DCH7 | | | | | | [place] | | | | | | [place], [place] | | | | | | [address] | | | | | | [phone] | | | +--------+ + + + [...] Denise | | | | | | [place] | | | | | | [address] | | | | | | [phone] | | | | | | | | +--------+ + + + + documented as of this encounter Visit Diagnoses Not on filedocumented in this encounter"
--- OUTSIDE RECORDS SUMMARY | ~2018-07-18 | XMS | Encounter Summary ---
Demographics + + + | Address | [address] | | | [place] [address] | + + + | Home Phone [...] + + + | Author | [facility] | + + + | Organization | [facility] | + + + | Address | Unknown | + + + | Phone | Unavailable | + + + Support + + + + + | Name | Relationship | Address | Phone | + + + + + | Cory Weldon | ECON | [address] | | | | | [place] [address] | | + + + + + | Thania Mallory | ECON | [address] | | | | | [place] [address] | | + + + + + | Deidra Weldon | ECON | [address] | | | | | [place] | | | | | [address] | | + + + + + Care Team Providers + +------+ + | Care Take Off Man Name | Role | Phone | [...] | Update | | | | [facility] | [facility] | | | | | Road [place], [place] | [place], [place] | | | | | [address] | [address] | | | | | [phone] | | | +--------+ + + + [...] Denise | | | | | | [place] | | | | | | [address] | | | | | | [phone] | | | | | | | | +--------+ + + + + documented as of this encounter Visit Diagnoses Not on filedocumented in this encounter"
--- OUTSIDE RECORDS SUMMARY | ~2018-07-18 | XMS | Encounter Summary ---
Demographics + + + | Address | [address] | | | [place] [address] | + + + | Home Phone [...] | | | | | [place] [address] | | + + + + + | Thania Mallory | ECON | [address] | | | | | [place] [address] | | + + + + + | Deidra Weldon | ECON | [address] | | | | | [place] | | | | | [address] | | + + + + + Care Team Providers + +------+ + | Care Continuous Improvement Director Name | Role | Phone [...] | | | | | [place] | [facility] | | | | | [facility] | [place], [place] | | | | | [address] | [address] | | | | | [facility] | [phone] | | | | | Mailcode: DCH7 | | | | | | [place] | | | | | | [place], [place] | | | | | | [address] | | | | | | [phone] | | | +--------+ + + + [...] [place] | | | | | | [address] | | | | | | [phone] | | | | | | | [...] + + | [facility] | [address] | [place] | [phone] | | [place] | | | | + + + + + documented in this encounter Visit Diagnoses Not on filedocumented in this encounter"
--- OUTSIDE RECORDS SUMMARY | ~2018-07-18 | XMS | Encounter Summary ---
Demographics + + + | Address | [address] | | | [place] [address] | + + + | Home Phone [...] | | | | | [place] [address] | | + + + + + | Thania Mallory | ECON | [address] | | | | | [place] [address] | | + + + + + | Deidra Weldon | ECON | [address] | | | | | [place] | | | | | [address] | | + + + + + Care Team Providers + +------+ + | Care Acid Changer Name | Role | Phone | [...] Requested | | | | [place] | [facility] | | | | | [facility] | [place], [place] | | | | | [address] | [address] | | | | | [facility] | | | | | | Mailcode: DCH7 | | | | | | [place] | | | | | | [place], [place] | | | | | | [address] | | | | | | [phone] | | | +--------+ + + + [...] Denise | | | | | | [place] | | | | | | [address] | | | | | | [phone] | | | | | | | | +--------+ + + + + documented as of this encounter Visit Diagnoses Not on filedocumented in this encounter"
--- OUTSIDE RECORDS SUMMARY | ~2018-07-18 | XMS | Encounter Summary ---
Demographics + + + | Address | [address] | | | [place] [address] | + + + | Home Phone [...] | | | | | [place] [address] | | + + + + + | Thania Mallory | ECON | [address] | | | | | [place] [address] | | + + + + + | Deidra Weldon | ECON | [address] | | | | | [place] | | | | | [address] | | + + + + + Care Team Providers + +------+ + | Care Senior Structural Engineer Name | Role | Phone | [...] [address] | RN [address] [facility] | | | | | [facility] | [facility] | | | | | Road [place], [place] | [place], [place] | | | | | [address] | [address] | | | | | [phone] | | | +--------+ + + + [...] Denise | | | | | | [place] | | | | | | [address] | | | | | | [phone] | | | | | | | | +--------+ + + + + documented as of this encounter Visit Diagnoses Not on filedocumented in this encounter"
--- OUTSIDE RECORDS SUMMARY | ~2018-07-18 | XMS | Encounter Summary ---
[...] | | | | | [place] [address] | | + + + + + | Thania Mallory | ECON | [address] | | | | | [place] [address] | | + + + + + | Deidra Weldon | ECON | [address] | | | | | [place] | | | | | [address] | | + + + + + Care Team Providers + +------+ + | Care Nutrition Internship Name | Role | Phone | [...] | | | | | [address] [facility] | [facility] | | | | | Road [place], [place] | [place], [place] | | | | | [address] | [address] | | | | | [phone] | | | +--------+ + + + [...] Denise | | | | | | [place] | | | | | | [address] | | | | | | [phone] | | | | | | | | +--------+ + + + + documented as of this encounter Visit Diagnoses Not on filedocumented in this encounter"
--- OUTSIDE RECORDS SUMMARY | ~2018-07-18 | XMS | Encounter Summary ---
Demographics + + + | Address | [address] | | | [place] [address] | + + + | Home Phone [...] | Author | [facility] | | | and Josephana | + + + | Organization | [facility] [...] Team Providers + +------+ + | Care Mid Level Clinician Name | Role | Phone | + [...] | | KIDNEY TRANSPLANT | JAC[address] [place], | | | | | [address] [place] | [place] [address] | | | | | [address] [place] | [phone] | | | | | [address] | | | | | | [phone] | | | +--------+ + + + [...]
--- OUTSIDE RECORDS SUMMARY | ~2018-07-18 | XMS | Encounter Summary ---
Demographics + + + | Address | [address] | | | [place] [address] | + + + | Home Phone [...] + + + | Author | [facility] | + + + | Organization | [facility] | + + + | Address | Unknown | + + + | Phone | Unavailable | + + + Support + + + + + | Name | Relationship | Address | Phone | + + + + + | Cory Weldon | ECON | [address] | | | | | [place] [address] | | + + + + + | Thania Mallory | ECON | [address] | | | | | [place] [address] | | + + + + + | Deidra Weldon | ECON | [address] | | | | | [place] | | | | | [address] | | + + + + + Care Team Providers + +------+ + | Care Computer Systems Hardware Analyst Name | Role | Phone | [...] | | | | | [address] [facility] | [facility] | | | | | Road [place], [place] | [place], [place] | | | | | [address] | [address] | | | | | [phone] | | | +--------+ + + + [...] Denise | | | | | | [place], [place] | | | | | | [address] | | | | | | [phone] | | | | | | | | +--------+ + + + + documented as of this encounter Visit Diagnoses Not on filedocumented in this encounter"
--- OUTSIDE RECORDS SUMMARY | ~2018-07-18 | XMS | Encounter Summary ---
Demographics + + + | Address | [address] | | | [place] [address] | + + + | Home Phone [...] Author + + + | Author | [facility] | + + + | Organization | [facility] | + + + | Address | Unknown | + + + | Phone | Unavailable | + + + Support + + + + + | Name | Relationship | Address | Phone | + + + + + | Cory Weldon | ECON | [address] | | | | | [place] [address] | | + + + + + | Thania Mallory | ECON | [address] | | | | | [place] [address] | | + + + + + | Deidra Weldon | ECON | [address] | | | | | [place] | | | | | [address] | | + + + + + Care Team Providers + +------+ + | Care Cap Machine Operator Name | Role | Phone [...] | | | | | [address] [facility] | [facility] | | | | | Road [place], [place] | [place], [place] | | | | | [address] | [address] | | | | | [phone] | | | +--------+ + + + [...] Denise | | | | | | [place], [place] | | | | | | [address] | | | | | | [phone] | | | | | | | | +--------+ + + + + documented as of this encounter Visit Diagnoses Not on filedocumented in this encounter"
--- OUTSIDE RECORDS SUMMARY | ~2018-07-18 | XMS | Encounter Summary ---
Demographics + + + | Address | [address] | | | [place] [address] | + + + | Home Phone [...] | | | | | [place] [address] | | + + + + + | Thania Mallory | ECON | [address] | | | | | [place] [address] | | + + + + + | Deidra Weldon | ECON | [address] | | | | | [place] | | | | | [address] | | + + + + + Care Team Providers + +------+ + | Care Applications Project Manager Name | Role | Phone [...] | Registratio | [address] | [phone] | | | | n | [facility] Mailcode: | | | | | | [address] [place], [place] | | | | | | [address] | | | | | | [phone] | | | +--------+ + + + [...] Denise | | | | | | [place], [place] | | | | | | [address] | | | | | | [phone] | | | | | | | [...] | [facility] | | | PATHOLOGY | [facility] [facility] | | DEPARTMENT | | [...] Joy | | | | | | [facility], | | | | | | [place],labeled sun'aq | | | | | | kidney [...] wall | | | | | | [id number]: | | | | | | NegativeFibrinogen: [...] + + + + | [facility] | [address] | [place] [address] | | | PATHOLOGY | [address] | | | + + + + + | [facility] | [address] | [place] [address] | | | PATHOLOGY | [address] | | | + + + + + documented in this encounter Visit Diagnoses Not on filedocumented in this encounter"
--- OUTSIDE RECORDS SUMMARY | ~2018-07-18 | XMS | Encounter Summary ---
Demographics + + + | Address | [address] | | | [place] [address] | + + + | Home Phone [...] | | | | | [place] [address] | | + + + + + | Thania Mallory | ECON | [address] | | | | | [place] [address] | | + + + + + | Deidra Weldon | ECON | [address] | | | | | [place] | | | | | [address] | | + + + + + Care Team Providers + +------+ + | Care Evp Head Of [employer] Experience Strategy Name | Role | Phone | [...] | Requested (Drug | | | | [address] [facility] | [facility] [address] | screens) | | | | Road [place], [place] | [place], [place] | | | | | [address] | [address] | | | | | [phone] | | | +--------+ + + + [...] Denise | | | | | | [place] | | | | | | [address] | | | | | | [phone] | | | | | | | | +--------+ + + + + documented as of this encounter Visit Diagnoses Not on filedocumented in this encounter"
--- OUTSIDE RECORDS SUMMARY | ~2018-07-18 | XMS | Encounter Summary ---
Demographics + + + | Address | [address] | | | [place] [address] | + + + | Home Phone [...] | | | | | [place] [address] | | + + + + + | Thania Mallory | ECON | [address] | | | | | [place] [address] | | + + + + + | Deidra Weldon | ECON | [address] | | | | | [place] | | | | | [address] | | + + + + + Care Team Providers + +------+ + | Care High School Academic Coach Name | Role | Phone | [...] | | | | | [place] | [facility] | | | | | [facility] | [place], [place] | | | | | [address] | [address] | | | | | [facility] | [phone] | | | | | Mailcode: DCH7 | | | | | | Alexander | | | | | | [place], [place] | | | | | | [address] | | | | | | [phone] | | | +--------+ + + + [...] | | | | | | [place], [place] | | | | | | [address] | | | | | | [phone] | | | | | | | [...] [address] | [place] [address] | [phone] | | HOSPITAL | | | | [...] | [address] | [place] [address] | [phone] | | HOSPITAL | | | | [...] [address] | [place] [address] | [phone] | | HOSPITAL | | | | [...] | [address] | [place] [address] | [phone] | | HOSPITAL | | | | [...] | [address] | [place] [address] | [phone] | | HOSPITAL | | | | [...] | [address] | [place] [address] | [phone] | | HOSPITAL | | | | + + + + + documented in this encounter Visit Diagnoses Not on filedocumented in this encounter"
--- OUTSIDE RECORDS SUMMARY | ~2018-07-18 | XMS | Encounter Summary ---
Demographics + + + | Address | [address] | | | [place] [address] | + + + | Home Phone [...] + + + | Author | [facility] | + + + | Organization | [facility] | + + + | Address | Unknown | + + + | Phone | Unavailable | + + + Support + + + + + | Name | Relationship | Address | Phone | + + + + + | Cory Weldon | ECON | [address] | | | | | [place] [address] | | + + + + + | Thania Mallory | ECON | [address] | | | | | [place] [address] | | + + + + + | Deidra Weldon | ECON | [address] | | | | | [place] | | | | | [address] | | + + + + + Care Team Providers + +------+ + | Care Fur Drummer Name | Role | Phone | + +------+ + | Shahid Camargo MD | PCP | Unavailable | + +------+ + Encounter Details +--------+ + + + + | Date | Type | Department | Care Team | Description | +--------+ + + + + | 12/19/ | Document-Sc | UNKNOWN DEPARTMENT | Unknown . | | | 2012 | ann | [address] | | | | | | [facility] | | | | | | [place], [place] | | | | | | [address] | | | +--------+ + + + [...] Denise | | | | | | [place], [place] | | | | | | [address] | | | | | | [phone] | | | | | | | | +--------+ + + + + documented as of this encounter Visit Diagnoses Not on filedocumented in this encounter"
--- OUTSIDE RECORDS SUMMARY | ~2018-07-18 | XMS | Encounter Summary ---
Demographics + + + | Address | [address] | | | [place] [address] | + + + | Home Phone [...] Author | [facility] | + + + | Organization | [facility] | + + + | Address | Unknown | + + + | Phone | Unavailable | + + + Support + + + + + | Name | Relationship | Address | Phone | + + + + + | Cory Weldon | ECON | [address] | | | | | [place] [address] | | + + + + + | Thaina Mallory | ECON | [address] | | | | | [place] [address] | | + + + + + | Deidra Weldon | ECON | [address] | | | | | [place] | | | | | [address] | | + + + + + Care Team Providers + +------+ + | Care Virtual Assistant Name | Role | Phone | [...] Shun | | | | | [facility] | [facility] | | | | | Road [place], [place] | [place], [place] | | | | | [address] | [address] | | | | | [phone] | | | +--------+ + + + [...] [place] | | | | | | [address] | | | | | | [phone] | | | | | | | | +--------+ + + + + documented as of this encounter Visit Diagnoses Not on filedocumented in this encounter"
--- OUTSIDE RECORDS SUMMARY | ~2018-07-18 | XMS | Encounter Summary ---
Demographics + + + | Address | [address] | | | [place] [address] | + + + | Home Phone [...] | | | | | [place] [address] | | + + + + + | Thania Mallory | ECON | [address] | | | | | [place] [address] | | + + + + + | Deidra Weldon | ECON | [address] | | | | | [place] | | | | | [address] | | + + + + + Care Team Providers + +------+ + | Care Manufacturing Test Technician Name | Role | Phone | [...] | | | Nephrology | | Jonathan aGllagher, | [address] | | | | | | [address] | [address] | | | | | | Keven | [place] | | | | | | [facility] | [facility] | | | | | | [address] | Mailcode: | | | | | | [place] | DCH7 | | | | | | [place]IS | [place] | | | | | | [place] | [place], [place] | | | | | | [address] | [address] | | | | | | Phone: | Phone: | | | | | | [phone] | [phone] | | | | | | Fax: | | | | | | | [phone] | | +--------+--------+ + + + + Encounter Details +--------+---------+ + + + | Date | Type | Department | Care Team | Description | +--------+---------+ + + + | 01/20/ | Office | Specialty Clinics | Sudhakar Joy | HSP | | 2015 | Visit | at [facility] [address] | MD Emanuel [address] | ([place] | | | | [facility] | [facility] [address] | purpura) nephritis | | | | Mailcode: DC7 | [place], [place] | (Primary Dx); | | | | [place] | [address] | Allergic purpura- | | | | [place], [place] | [phone] | MEDICARE 2728; | | | | [address] | | Anemia of chronic | | | | [phone] | | kidney failure, | | | [...] [address] Mail code [facility] [place], [place] [address] documented in this encounter Plan of Treatment +--------+ + + + + | Date | Type | Specialty | Care Team | Description | +--------+ + + + + | 05/04/ | Hospital | Adult Acute Care | El Starr MD | | | 2022 | Encounter | | [address] | | | | | | [place], [place] | | | | | | [address] | | | | | | [phone] | | | | | | | [...]
--- OUTSIDE RECORDS SUMMARY | ~2018-07-18 | XMS | Encounter Summary ---
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 | | Update | | + + + Encounter Details +--------+ + + + + | Date | Type | Department | Care Team | Description | +--------+ + + + + | 05/29/ | Abstract | Transplant | Jesus Edmond, | Transplant Form | | 2013 | | Coordinators [address] | Update (Social | | | | [address] [facility] | [facility] | worker dates | | | | Road [place], [place] | [place], [place] | updated) | | | | [address] | [address] | | | | | [phone] | [phone] | | | | | | | [...] Denise | | | | | | [place], [place] | | | | | | [address] | | | | | | [phone] | | | | | | | | +--------+ + + + + documented as of this encounter Visit Diagnoses Not on filedocumented in this encounter"
--- OUTSIDE RECORDS SUMMARY | ~2018-07-18 | XMS | Encounter Summary ---
Demographics + + + | Address | [address] | | | [place] [address] | + + + | Home Phone [...] | | | | | [place] [address] | | + + + + + | Thania Mallory | ECON | [address] | | | | | [place] [address] | | + + + + + | Deidra Weldon | ECON | [address] | | | | | [place] | | | | | [address] | | + + + + + Care Team Providers + +------+ + | Care Tilesetter Name | Role | Phone | + [...] on | | | | [place] | [address] | 03/16/12 to [place]) | | | | [facility] | [place], [place] | | | | | [address] | [address] | | | | | [facility] | [phone] | | | | | Mailcode: DCH7 | | | | | | [place] | | | | | | [place], [place] | | | | | | [address] | | | | | | [phone] | | | +--------+ + + + [...] Denise | | | | | | [place], [place] | | | | | | [address] | | | | | | [phone] | | | | | | | | +--------+ + + + + documented as of this encounter Visit Diagnoses Not on filedocumented in this encounter"
--- OUTSIDE RECORDS SUMMARY | ~2018-07-18 | XMS | Encounter Summary ---
Demographics + + + | Address | [address] | | | [place] [address] | + + + | Home Phone [...] | | | | | [place] [address] | | + + + + + | Thania Mallory | ECON | [address] | | | | | [place] [address] | | + + + + + | Deidra Weldon | ECON | [address] | | | | | [place] | | | | | [address] | | + + + + + Care Team Providers + +------+ + | Care Dairy And Food Laboratory Assistant Name | Role | Phone [...] Shun | | | | | [facility] | [facility] | | | | | Road [place], [place] | [place], [place] | | | | | [address] | [address] | | | | | [phone] | | | +--------+ + + + [...] [place] | | | | | | [address] | | | | | | [phone] | | | | | | | | +--------+ + + + + documented as of this encounter Visit Diagnoses Not on filedocumented in this encounter"
--- OUTSIDE RECORDS SUMMARY | ~2018-07-18 | XMS | Clinical Summary ---
Demographics + + + | Address | [address] | | | [place] [address] | + + + | Home Phone [...] | Author | [facility] | | | and [place] | + + + | Organization | [facility] | | | and Josephana | [...] Team Providers + +------+ + | Care Orthopedic Assistant Name | Role | Phone | [...] Overview: Active Kidney Transplant Waiting List at [facility]: | | 03/07/2014 | + + + [...] 9. | | Treated by Dr. Joy, silk screen processor. | + + + +---+ | ESRD [...] declot | | but reclotted). Listed at [facility] for kidney transplant - status | | [...] + + | 07/03/ | Telephone | | Meño Tran | Kidney Transplant | | 2019 | | | MD Linda | Pre-evaluation [...] Pre-evaluation | +--------+ + + + + 06/13/ | Telephone | | Meño Tran | Kidney Transplant | | 2019 | | | MD Linda | Pre-evaluation | | | | | | (Dara whelan so I | | | | | [...] | | | | | one in [place]. I | | | | | | [...] + | 06/11/ | Abstract | | Edvin DeepakMeño rodney | | | 2018 | | | MD Linda | | +--------+ + + + + | 04/23/ | Off-Site | | Jorje Camp | ESRD (end stage | | 2018 | Visit | | M DO | renal disease) (HCC) | | | | | | (Primary Dx) | +--------+ + + + + from [...] +--------+ +---------+--------+ | MEDICARE | MEDICA | [id number] | 05/05/19 | [phone] | | Medica | | | RE | | 13-Pre | 5 | | re | | | PART A | | sent | | | | | | AND B | | | | | | + +--------+ +--------+ +---------+--------+ | [employer] | MODA | [id number] | | [phone] | | Medica | [...] Self | [birth year] | | [address] | | | al/Fam | | 1994 | [phone] | [place] | | | [place] | | | 2 (Home) | [address] | + +--------+ +--------+ + + | Cory Weldon | Person | Father | [birth year] | [address] | | | al/Fam | | 1971 | [phone] | [place] [address] | | | [place] | | | 9 (Home) | | + +--------+ +--------+ + + Advance Directives Patient has advance care planning documents, and code status on file. For more information, please contact:[facility] [place] [address] + + + + + | Code Status | Date | Date | Comments | | | Activated | Inactivated | | + + + + + | Full Code | 02/24/2014 | 02/24/2014 | | | | 11:17 | 14:29 | | + + + + +
--- OUTSIDE RECORDS SUMMARY | ~2018-07-18 | XMS | Encounter Summary ---
Demographics + + + | Address | [address] | | | [place] [address] | + + + | Home Phone [...] | | | | | [place] [address] | | + + + + + | Thania Mallory | ECON | [address] | | | | | [place] [address] | | + + + + + | Deidra Weldon | ECON | [address] | | | | | [place] | | | | | [address] | | + + + + + Care Team Providers + +------+ + | Care Work Station Support Specialist Name | Role | Phone [...] W Anil | | | | | ([facility]) | Anil Griffin | Elias Elizondo | | | | | Procedures | [address] | Road | | | | | TRANSTHORACI | [place], [place] | Mailcode: | | | | | C | [address] | DCH8S | | | | | ECHOCARDIOGR | Phone: | [place] | | | | | IMANI, PEDS | [phone] | [place], [place] | | | | | | Fax: | [address] | | | | | | [phone] | Phone: | | | | | | | [phone] | | | | | | | Fax: | | | | | | | [phone] | +--------+--------+ + + + + Reason [...] | Update | | | | [facility] | [facility] | | | | | Road [place], [place] | [place], [place] | | | | | [address] | [address] | | | | | [phone] | | | +--------+ + + + [...] Denise | | | | | | [place], [place] | | | | | | [address] | | | | | | [phone] | | | | | | | [...] view image for the detailed interpretation from [employer] results. | CARDIOLOGY | + + + + + | Procedure Note | + + | Interface, Cardiology Results - 12/21/2012 9:38 AM PDT Please click on view image | | for the detailed interpretation from [facility] results. | + + + + + + + | Performing | Address | City/State/Zipcode | Phone Number | | Organization | | | | + + + + + | [facility] | [address] | [place], [place] | | | CARDIOLOGY | [address] | [address] | | + + + + + LIT SRUTHI-B WILEY ZHANG (12/20/2012 10:02 AM PDT) + + | Specimen | + + | Blood - Blood | + + + + + + + | Performing | Address | City/State/Zipcode | Phone Number | | Organization | | | | + + + + + | [facility] - | [address] | [place] [address] | | | IMMUNOGENETICS/TRANS | [address] [...] [facility] - | [address] | [place] [address] | | | IMMUNOGENETICS/TRANS | [address] [...] - | [address] | [place], [place] | | | IMMUNOGENETICS/TRANS | [address] [...] - | [address] | [place], [place] | | | IMMUNOGENETICS/TRANS | Suite [...] + + | [facility] - | [address] | [place] [address] | | | IMMUNOGENETICS/TRANS | [address] [...] [facility] - | [address] | [place] [address] | | | IMMUNOGENETICS/TRANS | [address] [...] UNIV | | | | Lorne Drew [facility] | | PTH - INTFC | | | | [address] | | | | | | [phone].[employer]. | | | | | | [...] [facility] | [address] | [place], [place] | | | UNIV PTH - INTFC | | [address] | | + + + + + [...] + + + + + | [facility] | [address] | [place] [address] | | | SERVICES, HOMERO | LONG [...] | + + + + + | [facility] | [address] | [place] [address] | | | SERVICES, CORE | LONG [...] - | | | | | | [place] | | + + + + + + + + | Specimen | + + | Blood - Blood | + + + + + + + | Performing | Address | City/State/Zipcode | Phone Number | | Organization | | | | + + + + + | [facility] | [address] | [place] [address] | | | [place] | | | | + + + [...] [facility] | [address] | [place] [address] | | | SERVICES, CORE | PARK [...] LABORATORY | [address] | [place] [address] | | | SERVICES, CORE | PARK [...] [facility] | [address] | [place] [address] | | | RIKY, HOMERO | LONG [...] - | | | | | | [place] | | + + + + + + + + | Specimen | + + | Blood - Blood | + + + + + + + | Performing | Address | City/State/Zipcode | Phone Number | | Organization | | | | + + + + + | [facility] | [address] | [place] [address] | | | [place] | | | [...] | | | at: | | | http://www.cdc.gov/nchstp/tb/pubs/tbfactssheets/938102.htm | | | Test performed by: [facility] | | | Public [facility] [address] [place] [address] | | | | | + + [...] [facility] | [address] | [place] [address] | | | SERVICES, SPECIAL | PARK [...] INTERPRETATION: Prothrombin mutation analysis shows that | [facility] | | there is no mutation in either copy of the prothrombin gene at | DIAGNOSTIC | | nucleotide [address]50. Please note that this assay only detects the | LABORATORIES | | [id number] point mutation and therefore a normal result [...] has been analyzed for the presence of Q48633V | | | mutation in the prothrombin [...] | above. Heterozygotes for the common prothrombin W04443Q mutation | | | constitute approximately 2% of the normal white population (1,2). | | | References: 1.) Poort et al. Blood 88, 3131-2654 (1996). 2.) Ricardo | | | et al. Circulation 99, 999-1004 (1998). 3.) Al Montalvo, and | | | Chase. Amer J Clin Path 155, 439-47 (2000). This test was | | | developed and its performance characteristics determined by the [facility] | | | [facility]. It has | | | not been cleared or approved by the Food and Drug | | | Administration. FDA approval is not required for clinical use of | | | this test, and therefore validation was done as required under the | | | requirements of the Clinical Laboratory Improvement Act of | | | 1988. The [facility] | | | Center is a fully licensed and/or accredited clinical laboratory under | | | CLIA, [facility], and the State [facility]. Please note that our lab now [...] + + | Performing | Address | City/State/[facility] | Phone Number | | Organization | | | | + + + + + | [facility] | [address] | [place] [address] | | | DIAGNOSTIC | [address] [...] + + + + + | [facility] | [address] | [place] [address] | | | SERVICES, CORE | PARK [...] | + + + + + | [facility] | [address] | [place] [address] | | | SERVICES, CORE | LONG [...] + + + + + | [facility] | [address] | [place] [address] | | | SERVICES, HOMERO | LONG [...] + + + + + | [facility] | [address] | [place] [address] | | | SERVICES, HOMERO | LONG [...] | | | | | | [place], [place] [address] | | | | | | [phone].[email or web address]. | | | | | | Faisal [...] [facility] | [address] | [place], [place] | | | UNIV PTH - INTFC | | [address] | | + + + + + [...] | + + + + + | [facility] | [address] | [place] [address] | | | SERVICES, SPECIAL | PARK [...] + + + + | [facility] | [address] | [place] [address] | | | DIAGNOSTIC | [address] [...] + | [facility] - | [address] | [place] [address] | | | [place] | | | [...] + | [facility] - | [address] | [place] [address] | | | [place] | | | [...] + | [facility] - | [address] | [place] [address] | | | [place] | | | [...] + | [facility] - | [address] | [place] [address] | | | [place] | | | | + + + [...] less......Not | | | | | | Hgwdtvdy07.0-21.9 | | | | | | U/mL.........Indetermina [...] available | | | | | | atwww.[employer]/eb | | | | | | vdx.Performed by [facility] | | | | | | Tania,Reid Pradhan | | | | | | [place] [address] | | | | | | [phone].[email or web address].comuplab. | | | | | | Faisal [...] [facility] | [address] | [place], [place] | | | UNIV PTH - INTFC | | [address] | | + + + + + [...] + | [facility] | [address] | [place] [address] | | | [facility] | | | | + + [...] + + + + + | [facility] | [address] | [place] [address] | | | SERVICES, HOMERO | PARK [...] | | | | | | Site Tour,[address] | | | | | | [place], [facility] | | | | | | [address] | | | | | | [phone].Verdeeco. | | | | | | Faisal [...] [facility] | [address] | [place], [place] | | | UNIV PTH - INTFC | | [address] | | + + + + + [...] | + + + + + | [facility] | [address] | [place] [address] | | | SERVICES, CORE | PARK [...] [facility] | [address] | [place] [address] | | | SERVICES, CORE | PARK [...] [facility] | [address] | [place] [address] | | | HOMERO LAN | LONG [...]
--- OUTSIDE RECORDS SUMMARY | ~2018-07-18 | XMS | Encounter Summary ---
Demographics + + + | Address | [address] | | | [place] [address] | + + + | Home Phone [...] + + + | Author | [facility] | + + + | Organization | [facility] | + + + | Address | Unknown | + + + | Phone | Unavailable | + + + Support + + + + + | Name | Relationship | Address | Phone | + + + + + | Cory Weldon | ECON | [address] | | | | | [place] [address] | | + + + + + | Thania Mallory | ECON | [address] | | | | | [place] [address] | | + + + + + | Deidra Weldon | ECON | [address] | | | | | [place] | | | | | [address] | | + + + + + Care Team Providers + +------+ + | Care Line Maintenance Technician Name | Role | Phone [...] | | | | | [address] [facility] | [facility] | | | | | Road [place], [place] | [place], [place] | | | | | [address] | [address] | | | | | [phone] | | | +--------+ + + + [...] Denise | | | | | | [place] | | | | | | [address] | | | | | | [phone] | | | | | | | | +--------+ + + + + documented as of this encounter Visit Diagnoses Not on filedocumented in this encounter"
--- OUTSIDE RECORDS SUMMARY | ~2018-07-18 | XMS | Encounter Summary ---
Demographics + + + | Address | [address] | | | [place] [address] | + + + | Home Phone [...] | | | | | [place] [address] | | + + + + + | Thania Mallory | ECON | [address] | | | | | [place] [address] | | + + + + + | Deidra Weldon | ECON | [address] | | | | | [place] | | | | | [address] | | + + + + + Care Team Providers + +------+ + | Care Lift Supervisor Name | Role | Phone | [...] SW | | | | [address] [facility] | [facility] | clinic visit - | | | | Road [place], [place] | [place], [place] | psychosocial | | | | [address] | [address] | readiness update) | | | | [phone] | | | +--------+ + + + [...] Denise | | | | | | [place], [place] | | | | | | [address] | | | | | | [phone] | | | | | | | | +--------+ + + + + documented as of this encounter Visit Diagnoses Not on filedocumented in this encounter"
--- OUTSIDE RECORDS SUMMARY | ~2018-07-18 | XMS | Encounter Summary ---
Demographics + + + | Address | [address] | | | [place] [address] | + + + | Home Phone [...] | | | | | [place] [address] | | + + + + + | Thania Mallory | ECON | [address] | | | | | [place] [address] | | + + + + + | Deidra Weldon | ECON | [address] | | | | | [place] | | | | | [address] | | + + + + + Care Team Providers + +------+ + | Care Phone Specialist Name | Role | Phone | [...] Shun | | | | | [facility] | [facility] | | | | | Road [place], [place] | [place], [place] | | | | | [address] | [address] | | | | | [phone] | | | | | | | [...] Denise | | | | | | [place], [place] | | | | | | [address] | | | | | | [phone] | | | | | | | | +--------+ + + + + documented as of this encounter Visit Diagnoses Not on filedocumented in this encounter"
--- OUTSIDE RECORDS SUMMARY | ~2018-07-18 | XMS | Encounter Summary ---
Demographics + + + | Address | [address] | | | [place] [address] | + + + | Home Phone [...] | | | | | [place] [address] | | + + + + + | Thania Mallory | ECON | [address] | | | | | [place] [address] | | + + + + + | Deidra Weldon | ECON | [address] | | | | | [place] | | | | | [address] | | + + + + + Care Team Providers + +------+ + | Care Factory Maintenance Manager Name | Role | Phone | [...] | | | | | Alexander | [facility] | | | | | [facility] | [place], [place] | | | | | [address] | [address] | | | | | [facility] | [phone] | | | | | Mailcode: DCH7 | | | | | | Alexander | | | | | | [place], [place] | | | | | | [address] | | | | | | [phone] | | | +--------+ + + + [...] Denise | | | | | | [place], [place] | | | | | | [address] | | | | | | [phone] | | | | | | | [...]
--- OUTSIDE RECORDS SUMMARY | ~2018-07-18 | XMS | Encounter Summary ---
Demographics + + + | Address | [address] | | | [place] [address] | + + + | Home Phone [...] | | | | | [place] [address] | | + + + + + | Thania Mallory | ECON | [address] | | | | | [place] [address] | | + + + + + | Deidra Weldon | ECON | [address] | | | | | [place] | | | | | [address] | | + + + + + Care Team Providers + +------+ + | Care Outpatient Services Director Name | Role | Phone [...] | RN [address] | recommendations) | | | | [facility] | [facility] | | | | | Road [place], [place] | [place], [place] | | | | | [address] | [address] | | | | | [phone] | | | +--------+ + + + [...] Denise | | | | | | [place], [place] | | | | | | [address] | | | | | | [phone] | | | | | | | | +--------+ + + + + documented as of this encounter Visit Diagnoses Not on filedocumented in this encounter"
--- OUTSIDE RECORDS SUMMARY | ~2018-07-18 | XMS | Encounter Summary ---
Demographics + + + | Address | [address] | | | [place] [address] | + + + | Home Phone [...] Author + + + | Author | [facility] | | | and [place]ana | + + + | Organization | [facility] | | [...] Providers + +------+ + | Care Financial Compliance Examiner Name | Role | Phone | [...] [address] [place] | [place] [address] | to return call to | | | | [address] | [phone] | complete intake | | | | [address] | | quest.) | | | | [phone] | | | +--------+ + + + [...]
--- OUTSIDE RECORDS SUMMARY | ~2018-07-18 | XMS | Encounter Summary ---
Demographics + + + | Address | [address] | | | [place] [address] | + + + | Home Phone [...] [address] | | | | | [place] [address] | | + + + + + | Thania Mallory | ECON | [address] | | | | | [place] [address] | | + + + + + | Deidra Weldon | ECON | [address] | | | | | [place] | | | | | [address] | | + + + + + Care Team Providers + +------+ + | Care Housekeeping/Laundry Supervisor Name | Role | Phone | [...] Center | | | | | [facility] | [place], [place] | | | | | [address] | [address] | | | | | [facility] | [phone] | | | | | Mailcode: DCH7 | | | | | | [place] | | | | | | [place], [place] | | | | | | [address] | | | | | | [phone] | | | +--------+ + + + [...] Denise | | | | | | [place], [place] | | | | | | [address] | | | | | | [phone] | | | | | | | [...] + + + + + | [facility] | [address] | [place] [address] | [phone] | | HOSPITAL | | | | [...] | [address] | [place] [address] | [phone] | | HOSPITAL | | | | + + + + + documented in this encounter Visit Diagnoses Not on filedocumented in this encounter"
--- OUTSIDE RECORDS SUMMARY | ~2018-07-18 | XMS | Encounter Summary ---
Demographics + + + | Address | [address] | | | [place] [address] | + + + | Home Phone [...] | | | | | [place] [address] | | + + + + + | Thania Mallory | ECON | [address] | | | | | [place] [address] | | + + + + + | Deidra Weldon | ECON | [address] | | | | | [place] | | | | | [address] | | + + + + + Care Team Providers + +------+ + | Care Range Master Name | Role | Phone | + [...] | | | | | [place] | [facility] | | | | | [facility] | [place], [place] | | | | | [address] | [address] | | | | | [facility] | [phone] | | | | | Mailcode: DCH7 | | | | | | Alexander | | | | | | [place], [place] | | | | | | [address] | | | | | | [phone] | | | +--------+ + + + [...] Denise | | | | | | [place], [place] | | | | | | [address] | | | | | | [phone] | | | | | | | [...]
--- OUTSIDE RECORDS SUMMARY | ~2018-07-18 | XMS | Encounter Summary ---
Demographics + + + | Address | [address] | | | [place] [address] | + + + | Home Phone [...] | | | | | [place] [address] | | + + + + + | Thania Mallory | ECON | [address] | | | | | [place] [address] | | + + + + + | Deidra Weldon | ECON | [address] | | | | | [place] | | | | | [address] | | + + + + + Care Team Providers + +------+ + | Care Dinkey Operator Slate Name | Role | Phone | [...] | 2012 | Encounter | 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
--- OUTSIDE RECORDS SUMMARY | ~2018-07-18 | XMS | Encounter Summary ---
Demographics + + + | Address | [address] [place] [address] | | | [place] [address] | + + + | Home Phone [...] | | | | | [place] [address] | | + + + + + | Thania Mallory | ECON | [address] | | | | | [place] [address] | | + + + + + | Deidra Weldon | ECON | [address] | | | | | [place] | | | | | [address] | | + + + + + Care Team Providers + +------+ + | Care New Product Trainer Name | Role | Phone | [...] Griffin | | | | | | indico [facility] | | | | | | [place], [place] | | | | | | [address] | | | +--------+ + + + [...] Denise | | | | | | [place], [place] | | | | | | [address] | | | | | | [phone] | | | | | | | [...] DANILO - | [address], | [place] [address] | | | IMMUNOGENETICS/TRANS | [address] | | | | [facility] | | | | + + + + + documented in this encounter Visit Diagnoses Not on filedocumented in this encounter"
--- OUTSIDE RECORDS SUMMARY | ~2018-07-18 | XMS | Encounter Summary ---
Demographics + + + | Address | [address] | | | [place] [address] | + + + | Home Phone [...] Author + + + | Author | [facility] | + + + | Organization | [facility] | + + + | Address | Unknown | + + + | Phone | Unavailable | + + + Support + + + + + | Name | Relationship | Address | Phone | + + + + + | Cory Weldon | ECON | [address] | | | | | [place] [address] | | + + + + + | Thania Mallory | ECON | [address] | | | | | [place] [address] | | + + + + + | Deidra Weldon | ECON | [address] | | | | | [place] | | | | | [address] | | + + + + + Care Team Providers + +------+ + | Care Hairspring I Inspector Name | Role | Phone | [...] (HCC) | | | | [place] | [facility] | (Primary Dx) | | | | [facility] | [place], [place] | | | | | [address] [facility] | [address] | | | | | [facility] | [phone] | | | | | Mailcode: DC7S | | | | | | Alexander | | | | | | [place], [place] | | | | | | [address] | | | | | | [phone] | | | +--------+ + + + [...] | | | | | | [place], [place] | | | | | | [address] | | | | | | [phone] | | | | | | | [...] | e | 1:18 PM | MEDICARE 6508 HSP | procedure are in the | | | | PST | ([facility] | results section. | | |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 | | | | | | Hemodialysis status | | | | | | ([facility]) Chronic | | | | | | kidney disease, | | | | | | stage V ([facility]) | | + +--------+ + + + documented in this encounter Visit Diagnoses + + | Diagnosis | + + | End-stage renal disease (HCC) - Primary End stage renal disease | + + documented in this encounter"
--- OUTSIDE RECORDS SUMMARY | ~2018-07-18 | XMS | Encounter Summary ---
Demographics + + + | Address | [address] [facility] [place] [address] | | | [place] [address] | + + + | Home Phone [...] | | | | | [place] [address] | | + + + + + | Thania Mallory | ECON | [address] | | | | | [place] [address] | | + + + + + | Deidra Weldon | ECON | [address] | | | | | [place] | | | | | [address] | | + + + + + Care Team Providers + +------+ + | Care Manager Shipping Name | Role | Phone | + [...] | Coordinators [address] | Emanuel, [address] [facility] | Update (Evaluation | | | | [address] | [address] | Scheduled) | | | | Road [place], [place] | [place], [place] | | | | | [address] | [address] | | | | | [phone] | [phone] | | | | | | | [...] Denies | | | | | | [place] | | | | | | [address] | | | | | | [phone] | | | | | | | | +--------+ + + + + documented as of this encounter Visit Diagnoses Not on filedocumented in this encounter"
--- OUTSIDE RECORDS SUMMARY | ~2018-07-18 | XMS | Encounter Summary ---
Demographics + + + | Address | [address] | | | [place] [address] | + + + | Home Phone [...] + + + | Author | [facility] [employer] | + + + | Organization [...] Team Providers + +------+ + | Care Cash Processing Specialist Name | Role | Phone | [...] | | | | | | [place] [address] | | | | | | [phone] | | | | | | | [...] Álvarez | | | | | | [place] [address] | | | | | | [phone] | | | | | | | [...] DARA WELDON Date of : 1995 | [facility] | | Performing Physician: René Noonan MD [...] MV A Shahid: 0.39 m/s MV Dec Wood: 9.46 m/s2 | | | MV DecT: 106.01 ms MV E Shahid: 1.00 m/s MV E/A Ratio: | | | 2.54 E/E' Sept: 23.82 E' Lat: 0.08 m/s E' Sept: 0.04 | | | m/s RAP: 15 mmHg RV S': 0.11 m/s RVSP: 67.64 mmHg TR | | | maxP.64 mmHg TR Vmax: 3.61 m/s Airport Guide: | | | Authenticated by: René Noonan MD Report Date/Time: -- | | | [id number]:15:25 | | + + + + + | Procedure Note | + + | Sonido Steele Results In - 06/12/2018 4:15 PM PDT Patient Name: Anders WELDON of | | : 1995Accession: [id number] Physician: René Noonan MD | | INDICATIONS [...] (A-L): 31.60 | | ml/m2LAAs A2C: 18.56 [id number] A-L A2C: 58.49 mlLAESV MOD A2C: 54.57 mlLALs A2C: | | 5.00 cmLAAs A4C: 17.96 [id number] A-L A4C: 52.99 mlLAESV MOD A4C: 44.93 mlLALs A4C: | | 5.18 cmLAESV(MOD BP): 49.83 mlRAAs: 18.33 [id number] A-L: 57.01 mlRAESV MOD: | | 56.24 mlRALs: 5.02 cmTAPSE: 1.98 cmAV Env.Ti: 227.35 msAV maxP.22 mmHgAV | | meanP.25 mmHgAV Vmax: 1.59 m/Elizabeth Vmean: 1.06 m/Elizabeth VTI: 24.30 cmAVA Vmax: | | 2.68 cm2AVA (VTI): 2.73 pm9SVTS Vmax: 0.00 cm2/m2AVAI (VTI): 0.00 cm2/m2LVOT | | Env.Ti: 210.72 msLVOT maxP.99 mmHgLVOT meanP.87 mmHgLVSI Dopp: 37.17 | | ml/m2LVSV Dopp: 66.54 mlLVOT Vmax: 1.41 m/sLVOT Vmean: 1.03 m/sLVOT VTI: 21.88 | | cmMV A Shahid: 0.39 m/sMV Dec Wood: 9.46 m/s2MV DecT: 106.01 msMV E Shahid: 1.00 | | m/sMV E/A Ratio: 2.54 E/E' Sept: 23.82 E' Lat: 0.08 m/sE' Sept: 0.04 m/sRAP: | | 15 mmHgRV S': 0.11 m/sRVSP: 67.64 mmHgTR maxP.64 mmHgTR Vmax: 3.61 | | m/sSonographer: Authenticated by: René Noonan MDReport Date/Time: -- | | [id number]:15:25IMPRESSION:1. Overall left ventricular systolic function is | [...] A Shahid: 0.39 m/s | |MV Dec Wood: 9.46 m/s2 | |MV DecT: 106.01 ms | |MV E Shahid: 1.00 m/s | |MV E/A Ratio: 2.54 | |E/E' Sept: 23.82 | |E' Lat: 0.08 m/s | |E' Sept: 0.04 m/s | |RAP: 15 mmHg | |RV S': 0.11 m/s | |RVSP: 67.64 mmHg | |TR maxP.64 mmHg | |TR Vmax: 3.61 m/s | | | |Airport Guide: | |Authenticated by: René Noonan MD | |Report Date/Time: -- [id number]:15:25 | | | |IMPRESSION: | |1. Overall [...] [facility] | [address] | [place] [address] | | + + + + + in this encounter Visit Diagnoses + + | Diagnosis | + + | Dyspnea, unspecified type | + +"
--- OUTSIDE RECORDS SUMMARY | ~2018-07-18 | XMS | Encounter Summary ---
Demographics + + + | Address | [address] | | | [place] [address] | + + + | Home Phone [...] | | | | | [place] [address] | | + + + + + | Thania Mallory | ECON | [address] | | | | | [place] [address] | | + + + + + | Deidra Weldon | ECON | [address] | | | | | [place] | | | | | [address] | | + + + + + Care Team Providers + +------+ + | Care Services Coordinator Name | Role | Phone | [...] | | 2012 | ann | [address] [facility] | | | | | | [facility] | | | | | | [place], [place] | | | | | | [address] | | | +--------+ + + + [...] Denise | | | | | | [place], [place] | | | | | | [address] | | | | | | [phone] | | | | | | | | +--------+ + + + + documented as of this encounter Visit Diagnoses Not on filedocumented in this encounter"
--- OUTSIDE RECORDS SUMMARY | ~2018-07-18 | XMS | Encounter Summary ---
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
--- OUTSIDE RECORDS SUMMARY | ~2018-07-18 | XMS | Encounter Summary ---
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 Name | Role | Phone [...] | (HCC) | Caro Chan | [place], | | | | | Allergic | [place], [place] | [place] | | | | | purpura | [address] | [address] | | | | | (HCC) | Phone: | Phone: | | | | | | [phone] | [phone] | | | | | | Fax: | Fax: | | | | | | [phone] | [phone] | +--------+--------+ + + + + Encounter Details +--------+---------+ + + + | Date | Type | Department | Care Team | Description | +--------+---------+ + + + | 12/19/ | Office | Kidney Transplant | Clinic, [address] [address] | Patient on | | 2012 | Visit | at Physician's | [facility] | peritoneal dialysis | | | | [facility] [address] [place], [place] | ([facility]) (Primary Dx); | | | | [facility] | [address] | Unspecified | | | | Road Mailcode: L590 | | essential | | | | Physicians | | hypertension; [facility] | | | | [facility] [place], | | ([place] | | | | [place] [address]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; | | | | [phone] | | Obesity (BMI | | | [...] on file Social History Narrative Lives in [place], [place] with father and step-mother; 2 dogs; [...] Transplant Selection Confer ence. El Starr MD centerless grinder tender, Division of Abdominal Organ Transplantation Professor of Urology CC: Sudhakar Joy MD [address] [place] [address] documented in this encoun ter Plan of Treatment +--------+ + + + + | Date | Type | Specialty | Care Team | Description | +--------+ + + + + | 05/04/ | Hospital | Adult Acute Care | El Starr MD | | | 2022 | Encounter | | [address] | | | | | | [place], [place] | | | | | | [address] | | | | | | [phone] | | | | | | | [...]
--- OUTSIDE RECORDS SUMMARY | ~2018-07-18 | XMS | Clinical Summary ---
Demographics + + + | Address | [address] | | | [place] [address] | + + + | Home Phone [...] + + + | Author | [employer] | + + + | Organization | [facility] | + [...] Providers + +------+ + | Care Television Script Writer Name | Role | Phone | [...] | Acute systolic CHF (congestive heart failure) ([facility]) | 05/29/19 | | | | 19 [...] | 06/28/ | Documentati | | Doris Alvaregna MA | Other ([facility] | | 2018 | on Only | | | ED & Testing | | | | | | 06/19/18) | +--------+ + + + + | 06/28/ | Documentati | | Doris Alvarenga MA | Other ([facility] | | 2018 | on Only | | | ED & Testing | | | | | | 06/12/18) | +--------+ + + + + | 06/27/ | Documentati | | Romero Talamantes Only | | 2018 | on Only | | ABRIL Martínez | | +--------+ + + + + | 06/26/ | Documentati | | Daniela Alejandre | Other ([facility] | | 2019 | on Only | | ORIANA Castellanos | [facility] - | | | | | [...] | | | | | HF chronicity ([facility]) | | | | | | (Primary Dx); | | | | | | Severe tricuspid | | | | | | regurgitation; | | | | | | Pulmonary HTN ([facility]); | | | | | | ESRD (end stage | | | | | | renal disease) ([facility]) | +--------+ + [...] CENTER); | | | | | | Hyperkalemia; | | | | | | Hyperphosphatemia; | | | | | | At high risk for | | | | | | electrolyte | | | | | | imbalance; Acute | | | | | | systolic CHF | | | | | | (congestive heart | | | | | | failure) ([facility]); | | | | | | Hypoalbuminemia; | | | | | | Anemia in ESRD | | | | | | (end-stage renal | | | | | | disease) ([facility]); ESRD | | | | [...] | | | MRN: | | | [id number] | | | OM: | | | [...] | . Signed | | | by: Lakhwindre, | | | Florian ALMEIDA | | [...] | | MD Debbie | | | Le Sign | | | Date/Time: | | [...] | | went to | | | [facility] | | [facility] | | | [...] | | Body Fluid | | | [[id number]] | | | Collected: | | | [...] | | Body Fluid | | | [[id number]] | | | Collected: | | | [...] | | | stain | | | [[id number]] | | | Collected: | | | [...] | | | fluid | | | [[id number]] | | | Collected: | | | [...] | | | fluid | | | [[id number]] | | | Collected: | | | [...] | | | Bharat, | | | [id number] | | | [address], RM | | | [address] | | | n [place] | | | [phone] | | | [phone] 1 | | | weekLindsay | | | Mahmood, | | | [id number] | | | GOETHALS | | | DRSTE | | | [place] | | | [place] | | | [phone] | | | [phone] 1 | | | weekJennife | | | r Ibarra, | | | [address] | | | [place] | | | [address] | | | [place] | | | [phone] | | | [phone] 1 | | [...] Álvarez | | | | | | [place] [address] | | | | | | [phone] | | | | | | | [...] | Left: | SYNOVIS | | | [id number] | | 0.8x8cm - [id number]: | | Arm | | | | [...] | | | COVIDIEN | | | [id number] | | 23cmExplanted: Qty: 1 on | | | | | | 3404 / | | 04/08/2014 | | | | | | | | | | | | | | /[id number] | | | | | | | [...] Ventricular Rate | 99 | BPM | [facility] | + + + [...] + + + + | Calculated P Boaz | 45 | degrees | [facility] EKG | + + + + + | Calculated R Boaz | -7 | degrees | [facility] EKG | + + + + + | Calculated T Boaz | 104 | degrees | [facility] EKG | + + + + + | Diagnosis | Please refer to | | [facility] EKG | | | Providers office visit | | | | | note for Providers | | | | | Interpretation.Confirmed | | | | | by [facility] [place] Read Only, | | | | | [facility] Shantelle ([id number]), | | | | | editorial cartoonist Joey Phillips | | | | | ([id number]) on 06/28/2018 | | | | | 1:01:23 PM | | | + + + + + + + + + + | Performing | Address | City/State/Zipcode | Phone Number | | Organization | | | | + + + + + | [facility] | [address] | [place] [address] | | + + + + + [...] DARA LOUISE Date of : 1995 | [facility] | | Performing Physician: René Noonan MD [...] MV A Shahid: 0.39 m/s MV Dec [place]: 9.46 m/s2 | | | MV DecT: 106.01 ms MV E Shahid: 1.00 m/s MV E/A Ratio: | | | 2.54 E/E' Sept: 23.82 E' Lat: 0.08 m/s E' Sept: 0.04 | | | m/s RAP: 15 mmHg RV S': 0.11 m/s RVSP: 67.64 mmHg TR | | | maxP.64 mmHg TR Vmax: 3.61 m/s Fur Glazer: | | | Authenticated by: René Noonan MD Report Date/Time: -- | | | [id number]:15:25 | | + + + + + | Procedure Note | + + | Sonido Steele In - 06/12/2018 4:15 PM PDT Patient Name: Anders LOUISE of | | : 1995Accession: [id number] Physician: René Noonan MD | | INDICATIONS [...] (A-L): 31.60 | | ml/m2LAAs A2C: 18.56 lm3CYRRW A-L A2C: 58.49 mlLAESV MOD A2C: 54.57 mlLALs A2C: | | 5.00 cmLAAs A4C: 17.96 th5RSCTI A-L A4C: 52.99 mlLAESV MOD A4C: 44.93 mlLALs A4C: | | 5.18 cmLAESV(MOD BP): 49.83 mlRAAs: 18.33 qs7BGYVH A-L: 57.01 mlRAESV MOD: | | 56.24 mlRALs: 5.02 cmTAPSE: 1.98 cmAV Env.Ti: 227.35 msAV maxP.22 mmHgAV | | meanP.25 mmHgAV Vmax: 1.59 m/Elizabeth Vmean: 1.06 m/Elizabeth VTI: 24.30 cmAVA Vmax: | | 2.68 cm2AVA (VTI): 2.73 xx3DWNG Vmax: 0.00 cm2/m2AVAI (VTI): 0.00 cm2/m2LVOT | | Env.Ti: 210.72 msLVOT maxP.99 mmHgLVOT meanP.87 mmHgLVSI Dopp: 37.17 | | ml/m2LVSV Dopp: 66.54 mlLVOT Vmax: 1.41 m/sLVOT Vmean: 1.03 m/sLVOT VTI: 21.88 | | cmMV A Shahid: 0.39 m/sMV Dec [place]: 9.46 m/s2MV DecT: 106.01 msMV E Shahid: 1.00 | | m/sMV E/A Ratio: 2.54 E/E' Sept: 23.82 E' Lat: 0.08 m/sE' Sept: 0.04 m/sRAP: | | 15 mmHgRV S': 0.11 m/sRVSP: 67.64 mmHgTR maxP.64 mmHgTR Vmax: 3.61 | | m/sSonographer: Authenticated by: René Palacios Date/Time: -- | | [id number]:15:25IMPRESSION:1. Overall left ventricular systolic function is | [...] A Shahid: 0.39 m/s | |MV Dec [place]: 9.46 m/s2 | |MV DecT: 106.01 ms | |MV E Shahid: 1.00 m/s | |MV E/A Ratio: 2.54 | |E/E' Sept: 23.82 | |E' Lat: 0.08 m/s | |E' Sept: 0.04 m/s | |RAP: 15 mmHg | |RV S': 0.11 m/s | |RVSP: 67.64 mmHg | |TR maxP.64 mmHg | |TR Vmax: 3.61 m/s | | | |Fur Glazer: | |Authenticated by: René Noonan MD | |Report Date/Time: -67_[id number]_24:15:25 | | | |IMPRESSION: | |1. Overall [...] | + + + + + | [facility] | [address] | [place] [address] | | + + + + + [...] performed | | | | | at [facility], [address] | | | | [address], | | | | | [place] [address] | | | | |Testing performed at [facility], [address] [facility], [place] [address] | | | | | | | | + + + + + + + | Specimen | + + | Blood | + + + + + + + | Performing | Address | City/State/Zipcode | Phone Number | | Organization | | | | + + + + + | [facility] | [address] | [place] [address] | [phone] | | LABORATORY | Blvd[address] | | [...] | | | performed at [facility], [address] | | | | | [facility], | | | | | [place] [address] | | | + + + + + + + | Specimen | + + | Blood | + + + + + + + | Performing | Address | City/State/Zipcode | Phone Number | | Organization | | | | + + + + + | [facility] | [address] | [place] [address] | [phone] | | LABORATORY | [address] | | [...] | | | antibiotic" for pneumonia at [facility] ED. Was throwing up & could [...] | + + + + + | [facility] | [address] | [place] [address] | | + + + + + Cholesterol, body fluid (05/29/2018 12:56 PM) + + + + + | Component | Value | Ref Range | Performed At | + + + + + | FLUID CHOLESTEROL | 56Comment: This is not a | mg/dL | [facility] | | | waiter/waitress third class validated | | LABORATORY | | | sample type for this | | | | | method. No reference | | | | | ranges have been | | | | | established.Testing | | | | | performed at [facility], [address] | | | | | [facility], | | | | | [place] [address] | | | + + + + + + + | Specimen | + + | Body Fluid - | | Pleural, Right | + + + + + + + | Performing | Address | City/State/Zipcode | Phone Number | | Organization | | | | + + + + + | [facility] | [address] | [place] [address] | [phone] | | LABORATORY | Blvd. | | [...] + + + | [facility] | [address] | [place] [address] | [phone] | | LABORATORY | Blvd[address] | | | + + + + + Lactate dehydrogenase, body fluid (05/29/2018 12:56 PM) + + + + + | Component | Value | Ref Range | Performed At | + + + + + | FLUID LDH | 151Comment: This is not | U/L | [facility] | | | a waiter/waitress third class validated | | LABORATORY | | | sample type for this | | | | | method. No reference | | | | | ranges have been | | | | | established.Testing | | | | | performed at [facility], [address] | | | | | [facility], | | | | | [place] [address] | | | + + + + + + + | Specimen | + + | Body Fluid - | | Pleural, Right | + + + + + + + | Performing | Address | City/State/Zipcode | Phone Number | | Organization | | | | + + + + + | [facility] | [address] | [place] [address] | [phone] | | LABORATORY | [address]vd[address] | | [...] | + + + + + | [facility] | [address] | [place] [address] | | + + + + + APTT (05/29/2018 8:52 AM) + + + + + | Component | Value | Ref Range | Performed At | + + + + + | APTT | 29Comment: Testing | 23 - 32 seconds | [facility] | | | performed at [facility];[address];[place] | | | | | [address] | | | + + + + + + + | Specimen | + + | Blood | + + + + + + + | Performing | Address | City/State/Zipcode | Phone Number | | Organization | | | | + + + + + | [facility] | [address] | [place] [address] | | + + + + + Protime-INR (05/29/2018 8:52 AM) + + + + + | Component | Value | Ref Range | Performed At | + + + + + | INR | 1.5Comment: REFERENCE | | [facility] | | | [...] | | | performed at [facility];[address] | | | | | [address];[place] | | | | | [address] | | | + + + + + + + | Specimen | + + | Blood | + + + + + + + | Performing | Address | City/State/Zipcode | Phone Number | | Organization | | | | + + + + + | [facility] | [address] | [place] [address] | | + + + + + [...] | + + + + + | [facility] | [address] | [place] [address] | | + + + + + Troponin I (05/28/2018 1:59 PM)Only the most recent of 2 results within the time period is included. + + + + + | Component | Value | Ref Range | Performed At | + + + + + | TROPONIN I | 0.037Comment: 0.04 | 0.00 - 0.04 ng/mL | [facility] | | | [...] | | | | | [facility];[address] [facility] | | | | | [facility];[place] [address] | | | + + + + + + + | Specimen | + + | Blood | + + + + + + + | Performing | Address | City/State/Zipcode | Phone Number | | Organization | | | | + + + + + | [facility] | [address] | [place] [address] | | + + + + + [...] performed at | | | | | [facility], [address] [place] [address] | | | | | [place] | | | | | [address] | | | + + + + + + + | Specimen | + + | Blood | + + + + + + + | Performing | Address | City/State/Zipcode | Phone Number | | Organization | | | | + + + + + | [facility] | [address] | [place] [address] | [phone] | | LABORATORY | [address] | | [...] | | | performed at [facility], [address] | | | | | [facility], | | | | | [place] [address] | | | + + + + + + + | Specimen | + + | Blood | + + + + + + + | Performing | Address | City/State/Zipcode | Phone Number | | Organization | | | | + + + + + | [facility] | [address] | [place] [address] | [phone] | | LABORATORY | [address]vd[address] | | [...] (L)Comment: GFR <60: | >60 mL/min/1.73m2 | [facility] | | | [...] the | | | | | MDRD [facility] traceable | | | | | equation.Testing | | | | | performed at [facility];[address] | | | | | [address];[place], [place] | | | | | [address] | | | + + + + + + + | Specimen | + + | Blood - Blood | + + + + + + + | Performing | Address | City/State/Zipcode | Phone Number | | Organization | | | | + + + + + | [facility] | [address] | [place] [address] | | + + + + + Sedimentation rate, automated (05/28/2018 9:23 AM) + + + + + | Component | Value | Ref Range | Performed At | + + + + + | ESR | 2Comment: Testing | 0 - 20 mm/Hr | [facility] | | | performed at [facility], [address] | | LABORATORY | | | [address], | | | | | [place] [address] | | | + + + + + + + | Specimen | + + | Blood | + + + + + + + | Performing | Address | City/State/Zipcode | Phone Number | | Organization | | | | + + + + + | [facility] | [address] [place] [address] | [place] [address] | [phone] | | LABORATORY | [address]vd[address] | | | + + + + + C-reactive protein (05/28/2018 9:23 AM) + + + + + | Component | Value | Ref Range | Performed At | + + + + + | CRP | 5.1 (H)Comment: Testing | <0.5 mg/dL | [facility] | | | performed at [facility], [address] | | LABORATORY | | | [address], | | | | | [place] [address] | | | + + + + + + + | Specimen | + + | Blood | + + + + + + + | Performing | Address | City/State/Zipcode | Phone Number | | Organization | | | | + + + + + | [facility] | [address] | [place] [address] | [phone] | | LABORATORY | [address]vd[address] | | | + + + + + hCG, serum, qualitative (05/28/2018 9:23 AM) + + + + + | Component | Value | Ref Range | Performed At | + + + + + | TEST,SERUM | NEGATIVEComment: Testing | NEGATIVE | [facility] | | | performed at [facility], [address] | | LABORATORY | | | [address], | | | | | [place] [address] | | | + + + + + + + | Specimen | + + | Blood | + + + + + + + | Performing | Address | City/State/Zipcode | Phone Number | | Organization | | | | + + + + + | [facility] | [address] | [place] [address] | [phone] | | LABORATORY | [address] | | [...] [address] | | LABORATORY | | | [facility] [address], | | | | | [place] [address] | | | + + + + + + + | Specimen | + + | Blood | + + + + + + + | Performing | Address | City/State/Zipcode | Phone Number | | Organization | | | | + + + + + | [facility] | [address] | [place] [address] | [phone] | | LABORATORY | [address]vd[address] | | | + + + + + Pathology cytology - fluid (05/28/2018 8:00 AM) + + | Specimen | + + | Body Fluid | + + + + + | Narrative | Performed At | + + + | ORDERING PHYSICIAN: Maria Luisa ALMEIDA, Aneudy Briggs PATIENT NAME: | [facility] | | DARA LOUISE GENDER: Alysia [...] PERFORMING LABORATORY: Technical preparation was performed by [facility] | | | [address], [address] [place] [address] | | | (Director Of Health Education: Matt Claudio D.O.; CLIA#: [id number]). | | | Professional interpretation was performed by [facility], | | | [address] [address] | | | (Director Of Health Education: Daniel Larson M.D.; CLIA#: [id number]).6 | | | Diagnostician: Marie BROOKS ([facility]) Asbestos Hazard Abatement Worker | | | Diagnostician: Anahy Da Silva [...] + + + | [facility] | [address] | [place] [address] | [phone] | | LABORATORY | Blvd. | | [...] performed at | | | | | [facility], [address] [place] [address] | | | | | [place] | | | | | [address] | | | + + + + + + + + + + | Performing | Address | City/State/Zipcode | Phone Number | | Organization | | | | + + + + + | [facility] | [address] | [place] [address] | [phone] | | LABORATORY | [address] | | [...] valve is normal. 18. | | | Vfem-tn-yrqvjgpa eccentric mitral regurgitation is present. 19. | [...] DARA LOUISE Date of : 1995 | [facility] | | Performing Physician: Robel De [...] valve is normal. 18. | | | Kavk-xg-speltjth eccentric mitral regurgitation is present. 19. | [...] is | | | normal. Mitral Valve: Tulz-nc-jsmbpvii eccentric mitral | | | regurgitation is [...] Vmax: 2.74 m/s | | | Fur Glazer: MW Authenticated by: Robel Yusuf MD Report | | | Date/Time: 05-27-2018 13:59:57 | | + + + + + | Procedure Note | + + | Sonido Steele In - 05/27/2018 2:00 PM PDT Patient Name: Anders LOUISE of | | : 1995Accession: [id number] Physician: Robel Yusuf | | MD INDICATIONS [...] aortic stenosis.17. The mitral valve is normal.18. Ekuc-ds-wugnwntz | | eccentric mitral regurgitation is present.19. [...] | | arch are normal.26. No mass cqhiittxfa08. No clot visualizedFINDINGS--------ECG rhythm: | | Sinus [...] The mitral valve is normal. Mitral Valve: Kgay-lp-qokncrmf eccentric mitral | | regurgitation is present.Tricuspid [...] (A-L): 30.43 | | ml/m2LAAs A2C: 20.97 fg6VSJKQ A-L A2C: 65.71 mlLALs A2C: 5.68 cmLAAs A4C: 19.94 | | iy1BJQPW A-L A4C: 60.20 mlLALs A4C: 5.60 cmTAPSE: 1.58 cmHR: 79.62 BPMAV maxPG: | | 6.06 mmHgAV meanP.71 mmHgAV Vmax: 1.23 m/Elizabeth Vmean: 0.92 m/Elizabeth VTI: 20.07 | | cmAVA Vmax: 1.74 cm2AVA (VTI): 1.93 ez0LUST Vmax: 0.00 cm2/m2AVAI (VTI): 0.00 | | [...] The mitral valve is | | normal.18. Tenu-cn-wtqwxmcz eccentric mitral regurgitation is present.19. Severe | [...] and aortic arch are normal.26. No mass yvbdylnzjj85. No clot visualized | |LVIDd: 4.99 cm [...] Vmax: 2.74 m/s | | | |Fur Glazer: MW | |Authenticated by: Robel Yusuf MD [...] The mitral valve is normal. | |18. Nsyi-kn-wqlcgbbg eccentric mitral regurgitation is present. | |19. [...] | + + + + + | [facility] | [address] | [place] [address] | | + + + + + [...] | + + + + + | [facility] | [address] | [place] [address] | | + + + + + Phosphorus (05/27/2018 4:25 AM) + + + + + | Component | Value | Ref Range | Performed At | + + + + + | PHOSPHORUS | 8.0 (H)Comment: Testing | 2.3 - 4.8 mg/dL | [facility] | | | performed at [facility], [address] | | LABORATORY | | | [address], | | | | | [place] [address] | | | + + + + + + + | Specimen | + + | Blood | + + + + + + + | Performing | Address | City/State/Zipcode | Phone Number | | Organization | | | | + + + + + | [facility] | [address] | [place] [address] | [phone] | | LABORATORY | [address] | | [...] (H)Comment: | 0 - 100 pg/mL | [facility] | | PEPTIDE | Testing performed at | | | | | [facility];[address] | | | | | [address];[place] [address] | | | + + + + + + + | Specimen | + + | Blood | + + + + + + + | Performing | Address | City/State/Zipcode | Phone Number | | Organization | | | | + + + + + | [facility] | [address] | [place] [address] | | + + + + + Magnesium (05/27/2018 4:25 AM) + + + + + | Component | Value | Ref Range | Performed At | + + + + + | MAGNESIUM | 2.7 (H)Comment: Testing | 1.7 - 2.4 mg/dL | [facility] | | | performed at [facility], [address] | | LABORATORY | | | [facility] [address], | | | | | [place] [address] | | | + + + + + + + | Specimen | + + | Blood | + + + + + + + | Performing | Address | City/State/Zipcode | Phone Number | | Organization | | | | + + + + + | [facility] | [address] | [place] [address] | [phone] | | LABORATORY | [address] | | [...] (L)Comment: GFR <60: | >60 mL/min/1.73m2 | [facility] | | | CHRONIC KIDNEY DISEASE, | [...] the | | | | | MDRD IDIA traceable | | | | | equation.Testing | | | | | performed at [facility], [address] | | | | | [facility], | | | | | [place] [address] | | | + + + + + + + | Specimen | + + | Blood | + + + + + + + | Performing | Address | City/State/Zipcode | Phone Number | | Organization | | | | + + + + + | [facility] | [address] | [place] [address] | [phone] | | LABORATORY | Blvd. | | [...] INTERP | Testing performed by | | [facility] | | | Molecular | | LABORATORY | | | MethodologyComment: | | | | | Testing performed at | | | | | [facility], [address] | | | | | [place] | | | | | [address] | | | + + + + + + + | Specimen | + + | Nasopharynx/Orophary | | nx | + + + + + + + | Performing | Address | City/State/Zipcode | Phone Number | | Organization | | | | + + + + + | [facility] | [address] | [place] [address] | [phone] | | LABORATORY | [address] | | | + + + + + MRSA by PCR (05/26/2018 6:06 PM) + + + + + | Component | Value | Ref Range | Performed At | + + + + + | SOURCE | NARES(NOSE) | | [facility] | + + + + + | MRSA PCR | NEGATIVEComment: Testing | NEGATIVE | [facility] | | | performed at [facility];[address] | | | | | [address];[place], [place] | | | | | [address] | | | + + + + + + + | Specimen | + + | Nasopharyngeal - | | Nares(Nose) | + + + + + + + | Performing | Address | City/State/Zipcode | Phone Number | | Organization | | | | + + + + + | [facility] | [address] | [place] [address] | | + + + + + PROCALCITONIN (05/26/2018 5:27 PM)Only the most recent of 2 results within the time period is included. + + + + + | Component | Value | Ref Range | Performed At | + + + + + | PROCALCITONIN | 0.76 (H)Comment: | <0.5 ng/mL | [facility] | | | [...] | | | | at [facility];[address] [place] [address] | | | | | [facility];[place] [address] | | | + + + + + + + + + + | Performing | Address | City/State/Zipcode | Phone Number | | Organization | | | | + + + + + | [facility] | [address] | [place] [address] | | + + + + + [...] CHEST WITHOUT CONTRAST CLINICAL INFORMATION: Pneumonia. | [facility] | | COMPARISON: XR CHEST 2 VIEW [...] | + + + + + | [facility] | [address] | [place] [address] | | + + + + + [...] STAIN | STAIN PERFORMED ON | | [facility] | | | [...] | + + + + + | [facility] | [address] | [place] [address] | [phone] | | LABORATORY | [address]vd[address] | | | + + + + + | [facility] | [address] | [place] [address] | | + + + + + Pathologist consult (05/26/2018 2:12 PM) + + + + + | Component | Value | Ref Range | Performed At | + + + + + | Pathologist Consult | Comment: Review of | | [facility] | | | [...] | | | | at [facility];[address] | | | | | [place] [id number] | | | + + + + + + + + + + | Performing | Address | City/State/Zipcode | Phone Number | | Organization | | | | + + + + + | [facility] | [address] | [place] [address] | | + + + + + Cell count, Body Fluid (05/26/2018 2:12 PM) + + + + + | Component | Value | Ref Range | Performed At | + + + + + | FLUID TYPE | PLEURAL FLUID | | [facility] | + + + + + | COLOR | SAMMIE | | [facility] | + + + + + | APPEARANCE | CLOUDY | | [facility] | + + + + + | RBC'S | 3,000Comment: CORRECTED | /mm3 | [facility] | | | RESULTS CALLED TO | | | | | MARIA LUISA IN ED AT 1705 | | | | | BY LGJCORRECTED ON 05/26 | | | | | AT 1702: PREVIOUSLY | | | | | REPORTED <[id number] | | | + + + + + | TOTAL NUCLEATED | 253Comment: CORRECTED | /mm3 | [facility] | | CELLS [...] Mesothelial Cells | 5 | % | [facility] | + + + + + | CELLS COUNTED | 100Comment: Testing | | [facility] | | | performed at [facility];[address] | | | | [address];[place] | | | | | [id number] | | | + + + + + + + | Specimen | + + | Body Fluid - Lung, | | Right Lower Lobe | + + + + + + + | Performing | Address | City/State/Zipcode | Phone Number | | Organization | | | | + + + + + | [facility] | [address] | [facility] [place] [address] | | + + + + + Total Protein, Body Fluid (05/26/2018 2:12 PM) + + + + + | Component | Value | Ref Range | Performed At | + + + + + | FLUID TOTAL PROTEIN | 4.2Comment: This is not | g/dL | [facility] | | | a waiter/waitress third class validated | | LABORATORY | | | sample type for this | | | | | method. No reference | | | | | ranges have been | | | | | established.Testing | | | | | performed at [facility], [address] | | | | | [facility], | | | | | [place] [address] | | | + + + + + | FLUID TP SOURCE | PLEURAL FLUIDComment: | | [facility] | | | Testing performed at | | | | | [facility];[address] | | | | [address];[place] [address] | | | + + + + + + + | Specimen | + + | Body Fluid - Lung, | | Right Lower Lobe | + + + + + + + | Performing | Address | City/State/Zipcode | Phone Number | | Organization | | | | + + + + + | [facility] | [address] | [place] [address] | | + + + + + | [facility] | [address] [place] [address] | [place] [address] | [phone] | | LABORATORY | Blvd[address] | | | + + + + + Albumin, Body Fluid (05/26/2018 2:12 PM) + + + + + | Component | Value | Ref Range | Performed At | + + + + + | FLUID ALBUMIN | 2.3Comment: This is not | g/dL | [facility] | | | a waiter/waitress third class validated | | LABORATORY | | | sample type for this | | | | | method. No reference | | | | | ranges have been | | | | | established.Testing | | | | | performed at [facility], [address] | | | | | [facility], | | | | | [place] [address] | | | + + + + + + + | Specimen | + + | Body Fluid - Lung, | | Right Lower Lobe | + + + + + + + | Performing | Address | City/State/Zipcode | Phone Number | | Organization | | | | + + + + + | [facility] | [address] [facility] | [place] [address] | [phone] | | LABORATORY | Blvd[address] | | | + + + + + pH, Body Fluid (05/26/2018 2:12 PM) + + + + + | Component | Value | Ref Range | Performed At | + + + + + | FLUID PH | 7.45Comment: Testing | | [facility] | | | performed at [facility];[address] | | | | | [address];[place] | | | | | [address] | | | + + + + + + + | Specimen | + + | Body Fluid - Lung, | | Right Lower Lobe | + + + + + + + | Performing | Address | City/State/Zipcode | Phone Number | | Organization | | | | + + + + + | [facility] | [address] | [place] [address] | | + + + + + Cardiac Panel (05/26/2018 12:14 PM) + + + + + | Component | Value | Ref Range | Performed At | + + + + + | WBC | 5.73 | 3.80 - 11.00 K/uL | [facility] | + + + + + | RBC | 3.32 (L) | 3.70 - 5.10 M/uL | [facility] | + + + + + | HGB | 12.1 | 11.3 - 15.5 g/dL | [facility] | + + + + [...] 151 | 150 - 400 K/uL | [facility] | + + + + + | MPV | 10.1 | fl | [facility] | + + + + + | DIFF TYPE | AUTOMATED | | [facility] | + + + + + | NEUTROPHILS | 72.41 | % | [facility] | + + + + [...] 0.37 | 0.00 - 0.80 K/uL | [facility] | + + + + + | EOSINOPHILS ABS | 0.06 | 0.00 - 0.50 K/uL | [facility] | + + + + + | BASOPHILS ABS | 0.06 | 0.00 - 0.10 K/uL | [facility] | + + + + + | MORPHOLOGY | 2+Comment: MACRO | | [facility] | + + + + [...] 19 | 5 - 20 mmol/L | [facility] | + + + + + | GLUCOSE | 85 | 65 - 99 mg/dL | [facility] | + + + + + | BUN | 41 (H) | 8 - 25 mg/dL | [facility] | + + + + + | CREATININE | 7.89 (H) | 0.50 - 1.00 mg/dL | [facility] | + + + + + | BUN/CREAT | 5 | | [facility] | + + + + + | CALCIUM | 9.6 | 8.5 - 10.5 mg/dL | [facility] | + + + + + | TOTAL PROTEIN | 7.2 | 6.3 - 8.2 g/dL | [facility] | + + + + + | Albumin | 4.3 | 3.6 - 5.0 g/dL | [facility] | + + + + + | GLOBULIN | 2.9 | 1.3 - 4.9 g/dL | [facility] | + + [...] (L)Comment: GFR <60: | >60 mL/min/1.73m2 | [facility] | | | [...] the | | | | | MDRD [facility] traceable | | | | | equation. | | | + + + + + | CPK | 291 (H) | 30 - 240 U/L | [facility] | + + + + + | INR | 1.6Comment: REFERENCE | | [facility] | | | [...] 29 | 23 - 32 seconds | [facility] | + + + + + | MMB | 7.8 (H) | 0.5 - 3.6 ng/mL | [facility] | + + + + + | CK-MB Index | 2.7Comment: CK INDEX | | [facility] | | | [...] | | | performed at [facility];[address] | | | | | [address];[place] | | | | | [address] | | | + + + + + + + + + + | Performing | Address | City/State/Zipcode | Phone Number | | Organization | | | | + + + + + | [facility] | [address] | [place] [address] | | + + + + + [...] space: 4th Puncture | | | method: Fsai-dph-jkjwnz catheter Ultrasound guidance: yes | | | [...] perforation, infection and | | | pain Gary protocol: Imaging studies available: yes | | [...] Performed At | + + + | [id number] Criteria Met 2 in 2 | ED [...] Count (12 mo.) Facility Visits Low Acuity [facility] | | | [facility] 1 0 [facility] 5 0 Total 6 0 | | | Note: Visits indicate total known visits. Medicaid Low Acuity Dx | | | are the number of primary diagnoses on the Medicaid's Low Acuity dx | | | list. Recent Emergency Department Visit Summary Date Facility | | | City State Type Diagnoses or Chief Complaint May 26, 2018 [facility] | | | [facility] [place] Emergency Chest pain, unspecified | | | [facility] [place] [facility] | | | Complaint: FLU SYMPTOMS [facility] [place] [place] | | | Emergency Chief Complaint: SOB/COUGH May 10, 2018 [facility]. | | | [place] [...] | | | disease [facility] [place] [facility] | | | Functional dyspepsia Other ascites Epigastric pain | | | Allergy status to narcotic agent status Radiographic dye | | | allergy status Nicotine dependence, unspecified, uncomplicated | | | Other care home (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 Sep 16, 2017 [facility] | | | [facility] [facility] [place] Emergency Chronic kidney disease, | | | unspecified Dependence on renal dialysis Pain, | | | unspecified Allergy status to narcotic agent status | | | Nicotine dependence, unspecified, uncomplicated Other technician terminal and repeater | | | (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 Elevated [...] record at this time. | | | [employer] Portal This patient has registered at the [facility] | [facility] Emergency Department For more information visit: | | | [email or web address] | | | [email or web address] [facility] PLEASE NOTE: 1. Any care recommendations and [...] | | completeness of information provided. 2019 [employer] | | | [employer]. - [email or web address] | | + + + + + | Procedure Note | + + | Interface, Lab - 05/26/2018 12:00 PM PDT Formatting of this note may be different | | from the original.[id number] [id number] Met 2 in 2Security and | | SafetyNo recent Security Events currently on fileED Care GuidelinesThere are currently | | no ED Care Guidelines for this patient. Please check your facility's medical records | | system.Prescription Drug Report (12 Mo.)PDMP query found no report.E.D. Visit Count (12 | | mo.)Facility Visits Low Acuity [facility] 1 0 [facility] | | [facility] 5 0 Total 6 0 Note: Visits indicate total known visits. Medicaid Low Acuity Dx | | are the number of primary diagnoses on the Medicaid's Low Acuity dx list. Recent | | Emergency Department Visit SummaryDate Facility City State Type Diagnoses or Chief | | [facility] [place] [facility] Chest pain, | | unspecified May 26, 2018 [facility] [place] [place] Emergency Chief Complaint: FLU | | SYMPTOMS May 25, 2018 [facility] [place] [place] Emergency Chief Complaint: | | SOB/COUGH May 10, 2018 [facility] [place] [place] Emergency Epistaxis Other long [...] stage renal disease Feb 14, 2018 [facility] | | [place] Emergency Functional dyspepsia Other ascites Epigastric pain | | Allergy status to narcotic agent status Radiographic dye allergy status Nicotine | | dependence, unspecified, uncomplicated Other technician terminal and repeater (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 Waldemar | | 2017 [facility] [place] [place] Emergency Chronic kidney disease, unspecified | | Dependence on renal dialysis Pain, unspecified Allergy status to narcotic agent | | status Nicotine dependence, unspecified, uncomplicated Other technician terminal and repeater (current) | | 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 Elevated blood-pressure [...] | PortalThis patient has registered at the [facility] Emergency | | Department For more information visit: | | [email or web address] andnbsp | | PLEASE NOTE: 1. Any [...] or completeness of information | | provided.2019 [employer]. - [email or web address] | | Hypertensive heart and chronic kidney disease without heart failure, with stage 5 chroni c kidney disease, or end stage renal disease | | | |Feb 14, 2018 [facility] [place] Emergency | | Functional dyspepsia | | Other ascites | | Epigastric pain | | Allergy status to narcotic agent status | | Radiographic dye allergy status | | Nicotine dependence, unspecified, uncomplicated | | Other technician terminal and repeater (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 | | | |Sep 16, 2017 [facility] [place] Emergency | | Chronic [...] | |This patient has registered at the [facility] Emergency Department | |For more information visit: [email or web address] | |andnbsp PLEASE NOTE: | | 1. [...] of information provided. | | | |2019 [employer] - [email or web address] | + + + +---------+ + + [...] +------+-------+ + | MEDICARE | MEDICA | [id number] | | | [address] | | | RE | | | | [place] [address] | | | IP-OP | | | | | + +--------+ +------+-------+ + | MEDICAID | EASTER | [id number] | | | [address] | | | N | | | | [place] | | | [place] | | | | [address] | | | CAB SUPERVISOR | | | | | + [...] | Self | [birth year] Home: | [facility] [address] | | | al/Kvng | | 1994 | [phone] | [place] | | | k[place]ron | | | [phone] | + +--------+ +--------+ + +
--- OUTSIDE RECORDS SUMMARY | ~2018-07-18 | XMS | Encounter Summary ---
Demographics + + + | Address | [address] | | | [place] [address] | + + + | Home Phone [...] | | | | | [place] [address] | | + + + + + | Thania Mallory | ECON | [address] | | | | | [place] [address] | | + + + + + | Deidra Weldon | ECON | [address] | | | | | [place] | | | | | [address] | | + + + + + Care Team Providers + +------+ + | Care Forensic Economist Name | Role | Phone | + [...] (Ped TX SW | | | | [facility] | [facility] | clinic check-in) | | | | Ruel Jane | [place], [place] | | | | | [place], [place] | [address] | | | | | [address] | | | | | | [phone] | | | +--------+ + + + [...] Denise | | | | | | [place] | | | | | | [address] | | | | | | [phone] | | | | | | | | +--------+ + + + + documented as of this encounter Visit Diagnoses Not on filedocumented in this encounter"
--- OUTSIDE RECORDS SUMMARY | ~2018-07-18 | XMS | Encounter Summary ---
Demographics + + + | Address | [address] | | | [place] [address] | + + + | Home Phone [...] | | | | | [place] [address] | | + + + + + | Thania Mallory | ECON | [address] | | | | | [place] [address] | | + + + + + | Deidra Weldon | ECON | [address] | | | | | [place] | | | | | [address] | | + + + + + Care Team Providers + +------+ + | Care Cable Former Name | Role | Phone | [...] 2013 | | Coordinators [address] | [place], [place] | Update | | | | [address] [facility] | [address] | | | | | Road [place], [place] | | | | | | [address] | | | | | | [phone] | | | +--------+ + + + [...] [place] | | | | | | [address] | | | | | | [phone] | | | | | | | | +--------+ + + + + documented as of this encounter Visit Diagnoses Not on filedocumented in this encounter"
--- OUTSIDE RECORDS SUMMARY | ~2018-07-18 | XMS | Encounter Summary ---
Demographics + + + | Address | [address] | | | [place] [address] | + + + | Home Phone [...] | | | | | [place] [address] | | + + + + + | Thania Mallory | ECON | [address] | | | | | [place] [address] | | + + + + + | Deidra Weldon | ECON | [address] | | | | | [place] | | | | | [address] | | + + + + + Care Team Providers + +------+ + | Care Spanish Speaking Nanny Name | Role | Phone | + [...] | Update | | | | [facility] | [facility] | | | | | Road [place], [place] | [place], [place] | | | | | [address] | [address] | | | | | [phone] | | | +--------+ + + + [...] [place] | | | | | | [address] | | | | | | [phone] | | | | | | | | +--------+ + + + + documented as of this encounter Visit Diagnoses Not on filedocumented in this encounter"
--- OUTSIDE RECORDS SUMMARY | ~2018-07-18 | XMS | Encounter Summary ---
Demographics + + + | Address | [address] | | | [place] [address] | + + + | Home Phone [...] | | | | | [place] [address] | | + + + + + | Thania Mallory | ECON | [address] | | | | | [place] [address] | | + + + + + | Deidra Weldon | ECON | [address] | | | | | [place] | | | | | [address] | | + + + + + Care Team Providers + +------+ + | Care Office Sweeper Name | Role | Phone | [...] [place] | | | | | | [facility] | | | | | | [place], [place] | | | | | | [address] | | | +--------+ + + + [...] Denise | | | | | | [place], [place] | | | | | | [address] | | | | | | [phone] | | | | | | | [...] renal | Results for this | | EVA BLOOD | e | 7:45 AM | [...] [facility] - | [address] | [place] [address] | | | IMMUNOGENETICS/TRANS | [address] [...] [facility] - | [address], | [place] [address] | | | IMMUNOGENETICS/TRANS | [address] [...] [facility] - | [address] | [place] [address] | | | IMMUNOGENETICS/TRANS | [address] | | | | [facility] | | | | + + + + + documented in this encounter Visit Diagnoses + + | Diagnosis | + + | End stage renal disease (HCC) End stage renal disease | + + documented in this encounter"
--- OUTSIDE RECORDS SUMMARY | ~2018-07-18 | XMS | Encounter Summary ---
Demographics + + + | Address | [address] | | | [place] [address] | + + + | Home Phone [...] | | | | | [place] [address] | | + + + + + | Thania Mallory | ECON | [address] | | | | | [place] [address] | | + + + + + | Deidra Weldon | ECON | [address] | | | | | [place] | | | | | [address] | | + + + + + Care Team Providers + +------+ + | Care Educational Resource Coordinator Name | Role | Phone | [...] SW | | | | [facility] | Elias Caro Chan | attempt(s) to | | | | Road [place], [place] | [place], [place] | contact pt re move | | | | [address] | [address] | and new PAF as | | | | [phone] | | listed) | +--------+ + + [...] Denise | | | | | | [place], [place] | | | | | | [address] | | | | | | [phone] | | | | | | | | +--------+ + + + + documented as of this encounter Visit Diagnoses Not on filedocumented in this encounter"
--- OUTSIDE RECORDS SUMMARY | ~2018-07-18 | XMS | Encounter Summary ---
Demographics + + + | Address | [address] | | | [place] [address] | + + + | Home Phone [...] Author + + + | Author | [facility] | + + + | Organization | [facility] | + + + | Address | Unknown | + + + | Phone | Unavailable | + + + Support + + + + + | Name | Relationship | Address | Phone | + + + + + | Cory Weldon | ECON | [address] | | | | | [place] [address] | | + + + + + | Thania Mallory | ECON | [address] | | | | | [place] [address] | | + + + + + | Deidra Weldon | ECON | [address] | | | | | [place] | | | | | [address] | | + + + + + Care Team Providers + +------+ + | Care Medical Transcription Editor Name | Role | Phone | [...] | 2015 | on | Coordinators [address] | RN [address] | Update | | | | [address] [facility] | [facility] | | | | | Road [place], [place] | [place], [place] | | | | | [address] | [address] | | | | | [phone] | | | +--------+ + + + [...] Denise | | | | | | [place], [place] | | | | | | [address] | | | | | | [phone] | | | | | | | | +--------+ + + + + documented as of this encounter Visit Diagnoses Not on filedocumented in this encounter"
--- OUTSIDE RECORDS SUMMARY | ~2018-07-18 | XMS | Encounter Summary ---
Demographics + + + | Address | [address] | | | [place] [address] | + + + | Home Phone [...] | | | | | [place] [address] | | + + + + + | Thania Mallory | ECON | [address] | | | | | [place] [address] | | + + + + + | Deidra Weldon | ECON | [address] | | | | | [place] | | | | | [address] | | + + + + + Care Team Providers + +------+ + | Care Gathering Machine Setter Name | Role | Phone [...] | Registratio | [address]rn [place] | [phone] | | | | n | [facility] Mailcode: | | | | | | [address] [place], [place] | | | | | | [address] | | | | | | [phone] | | | +--------+ + + + [...] Denise | | | | | | [place], [place] | | | | | | [address] | | | | | | [phone] | | | | | | | [...] | [facility] | | | PATHOLOGY | [facility] | | DEPARTMENT | | [...] Joy | | | | | | [facility], | | | | | | [place],labeled [place] | | | | | | kidney [...] wall | | | | | | zzeohlsxU2d: | | | | | | NegativeFibrinogen: [...] | + + + + + | [facility] | [address] | [place] [address] | | | PATHOLOGY | [address] | | | + + + + + | [facility] | [address] | [place] [address] | | | PATHOLOGY | [address] | | | + + + + + documented in this encounter Visit Diagnoses Not on filedocumented in this encounter"
--- OUTSIDE RECORDS SUMMARY | ~2018-07-18 | XMS | Encounter Summary ---
Demographics + + + | Address | [address] | | | [place] [address] | + + + | Home Phone [...] + + + | Author | [facility] [employer] | + + + | Organization | [facility] | + + + [...] Providers + +------+ + | Care Senior Project Manager Engineering Name | Role | Phone | + +------+ + | Jonathan Alonso MD | PCP | | + +------+ + Reason for Visit +--------+ + | Reason | Comments | +--------+ + | Other | [facility] 06/19/18 | +--------+ + Encounter Details +--------+ + [...] | | [address] | | 06/19/18) | | | | [address] | | | | | | [place] [address] | | | | | | [phone] | | | +--------+ + + + [...] | | | | | [place] [address] | | | | | | [phone] | | | | | | | | +--------+---------+ + + + as of this encounter Visit Diagnoses Not on filein this encounter"
--- OUTSIDE RECORDS SUMMARY | ~2018-07-18 | XMS | Encounter Summary ---
Demographics + + + | Address | [address] | | | [place] [address] | + + + | Home Phone [...] | | | | | [place] [address] | | + + + + + | Deidra Weldon | ECON | [address] | | | | | [place] | | | | | [address] | | + + + + + Care Team Providers + +------+ + | Care Psychologist Social Name | Role | Phone | + [...] | Coordinators [address] | [address] [facility] | Update | | | | [facility] | [facility] | | | | | Road [place], [place] | [place], [place] | | | | | [address] | [address] | | | | | [phone] | [phone] | | | | | | | [...] | | | | | | [place], [place] | | | | | | [address] | | | | | | [phone] | | | | | | | | +--------+ + + + + documented as of this encounter Visit Diagnoses Not on filedocumented in this encounter"
--- OUTSIDE RECORDS SUMMARY | ~2018-07-18 | XMS | Encounter Summary ---
Demographics + + + | Address | [address] | | | [place] [address] | + + + | Home Phone [...] | | | | | [place] [address] | | + + + + + | Thania Mallory | ECON | [address] | | | | | [place] [address] | | + + + + + | Deidra Weldon | ECON | [address] | | | | | [place] | | | | | [address] | | + + + + + Care Team Providers + +------+ + | Care Pocket Secretary Assembler Name | Role | Phone | [...] Update | | | | [address] [facility] | [facility] | | | | | Road [place], [place] | [place], [place] | | | | | [address] | [address] | | | | | [phone] | | | +--------+ + + + [...] Denise | | | | | | [place], [place] | | | | | | [address] | | | | | | [phone] | | | | | | | | +--------+ + + + + documented as of this encounter Visit Diagnoses Not on filedocumented in this encounter"
--- OUTSIDE RECORDS SUMMARY | ~2018-07-18 | XMS | Encounter Summary ---
Demographics + + + | Address | [address] | | | [place] [address] | + + + | Home Phone [...] Author + + + | Author | [facility] | + + + | Organization | [facility] | + + + | Address | Unknown | + + + | Phone | Unavailable | + + + Support + + + + + | Name | Relationship | Address | Phone | + + + + + | Cory Weldon | ECON | [address] | | | | | [place] [address] | | + + + + + | Thania Mallory | ECON | [address] | | | | | [place] [address] | | + + + + + | Deidra Weldon | ECON | [address] | | | | | [place] | | | | | [address] | | + + + + + Care Team Providers + +------+ + | Care Transfer Worker Name | Role | Phone | + +------+ + | Shahid Camargo MD | PCP | Unavailable | + +------+ + Encounter Details +--------+------+ + + + | Date | Type | Department | Care Team | Description | +--------+------+ + + + | 12/20/ | Lab | Lab Center at [facility] | | Allergic purpura- | | 2012 | | 7th Floor [address] | | MEDICARE [address] | | | | [address] | | (Primary Dx) | | | | Road [place], [place] | | | | | | [address] | | | | | | [phone] | | | +--------+------+ + + + [...] [place] | | | | | | [address] | | | | | | [phone] | | | | | | | [...] - | [address] | [place], [place] | | | IMMUNOGENETICS/TRANS | Suite [...] - | [address] | [place], [place] | | | IMMUNOGENETICS/TRANS | Suite [...] + | [facility] - | [address] | [place] [address] | | | IMMUNOGENETICS/TRANS | [address] | | | | PLANT LABORATORY | | | | + + + + + LIT HLA-B LOW RES-KE (12/20/2012 10:02 AM PDT) + + | Specimen | + + | Blood - Blood | + + + + + + + | Performing | Address | City/Screenleap/Zipcode | Phone Number | | Organization | | | | + + + + + | [facility] - | [address] | [place] [address] | | | IMMUNOGENETICS/TRANS | [address] [...] + + | [facility] - | [address] | [place] [address] | | | IMMUNOGENETICS/TRANS | [address] [...] + | [facility] - | [address] | [place], [place] | | | IMMUNOGENETICS/TRANS | Suite [...] + | [facility] - | [address] | [place], [place] | | | IMMUNOGENETICS/TRANS | [address] [...] [facility] - | [address] | [place] [address] | | | IMMUNOGENETICS/TRANS | [address] [...] [facility] - | [address], | [place] [address] | | | IMMUNOGENETICS/TRANS | [address] [...] | + + + + + | [facility] | [address] | [place] [address] | | | SERVICES, | LONG CHAHAL | | | | TRANSFUSION MEDICINE | [...] [facility] | [address] | [place] [address] | | | SERVICES, | [address] [...] | + + + + + | [facility] | [address] | [place] [address] | | | SERVICES, CORE | PARK [...] | | | | Pippa [place], [facility],[place] | | PTH - INTFC | | | | [address] | | | | | | [phone]. | | | | | | annalee, [...] [facility] | [address] | [place], [place] | | | UNIV PTH - INTFC | | [address] | | + + + + + [...] [facility] | [address] | [place] [address] | | | SERVICES, HOMERO | PARK [...] | + + + + + | [facility] | [address] | [place] [address] | | | SERVICES, CORE | PARK [...] + | [facility] - | [address] | [place] [address] | | | [place] | | | [...] [facility] | [address] | [place] [address] | | | SERVICES, CORE | PARK [...] [facility] | [address] | [place] [address] | | | SERVICES, CORE | PARK [...] | + + + + + | [facility] | [address] | [place] [address] | | | SERVICES, CORE | PARK [...] | | [facility] | | + + + + + + + + | Specimen | + + | Blood - Blood | + + + + + + + | Performing | Address | City/State/Zipcode | Phone Number | | Organization | | | | + + + + + | [facility] | [address] | [place] [address] | | | [place] | | | [...] | | | at: | | | http://www.cdc.gov/nchstp/tb/pubs/tbfactssheets/[email or web address].htm | | | Test performed by: [facility] | | | Public Health Lab [address] Jaciel[address] [place] [address] | | | | | + + [...] [facility] | [address] | [place] [address] | | | SERVICES, SPECIAL | PARK [...] gene at | DIAGNOSTIC | | nucleotide 33932. Please note that this assay only detects the | LABORATORIES | | [id number] point mutation and therefore a normal result [...] has been analyzed for the presence of [id number] | | | mutation in the prothrombin [...] | above. Heterozygotes for the common prothrombin [id number] mutation | | | constitute approximately 2% of the normal white population (1,2). | | | References: 1.) Edwinat et al. Blood 88, 6741-8707 (1995). 2.) Ricardo | | | et al. Circulation 99, 999-1004 (1998). 3.) Al Montalvo, and | | | Press. Amer J Clin Path 155, 439-47 (2001). This test was | | | developed and its performance characteristics determined by the [facility] | | | [facility] Diagnostic [facility]. [...] Act of | | | 1988. The [facility] Molecular Diagnostic | | | Center is a fully licensed and/or accredited clinical laboratory under | | | CLIA, [facility], and the State [facility]. Please note that our lab now [...] + + | Performing | Address | City/State/Mem[facility] Medical Centercode | Phone Number | | Organization | | | | + + + + + | [facility] | [address] | [place] [address] | | | DIAGNOSTIC | [address] [...] CENTER LAB[facility]ATORY | [address] | [place] [address] | | | SERVICES, CORE | LONG [...] | + + + + + | [facility] | [address] | [place] [address] | | | SERVICES, CORE | LONG [...] [facility] | [address] | [place] [address] | | | SERVICES, HOMERO | LONG [...] ranges for full anticoagulation: INR for | [facility] | | Venous Thromboembolism (2.0 - 3.0) [...] CENTER LABORATORY | [address] | [place] [address] | | | SERVICES, HOMERO | LONG [...] | | | | | | [place] [address] | | | | | | [phone].[email or web address]. | | | | | | Faisal [...] [facility] | [address] | [place], [place] | | | UNIV PTH - INTFC | | [address] | | + + + + + [...] | + + + + + | [email or web address] | [address] | [place] [address] | | | SERVICES, SPECIAL | PARK [...] + + + + | [facility] | [address] | [place] [address] | | | DIAGNOSTIC | [address] [...] + | [facility] - | [address] | [place] [address] | | | [place] | | | [...] + | [facility] - | [address] | [place] [address] | | | [place] | | | [...] + | [facility] - | [address] | [place] [address] | | | [place] | | | | + + + [...] + | [facility] - | [address] | [place] [address] | | | [place] | | | [...] less......Not | | | | | | Ucpwbxjp57.0-21.9 | | | | | | U/mL.........Indetermina [...] available | | | | | | atwww.ARC Medical [email or web address]/eb | | | | | | vdx.Performed by [facility] | | | | | | [facility],[address] | | | | | | Raj[place], [facility],[place] [address] | | | | | | [phone].eBureauuplab. | | | | | | Faisal [...] [facility] | [address] | [place], [place] | | | UNIV PTH - INTFC | | [address] | | + + + + + [...] + | [facility] - | [address] | [place] [address] | | | [place] | | | | + + + [...] [facility] | [address] | [place] [address] | | | SERVICES, CORE | LONG [...] by | | | | | | [address],[address] | | | | | | [place]ipp[place], [facility],[place] | | | | | | [address] | | | | | | [phone].Thermalin Diabetes. 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
--- OUTSIDE RECORDS SUMMARY | ~2018-07-18 | XMS | Encounter Summary ---
Demographics + + + | Address | [address] | | | [place] [address] | + + + | Home Phone [...] | | | | | [place] [address] | | + + + + + | Deidra Weldon | ECON | [address] | | | | | [place] | | | | | [address] | | + + + + + Care Team Providers + +------+ + | Care Retail Sales Associate Name | Role | Phone [...] - Renal | | | | [facility] | [facility] | | | | | Road [place], [place] | [place], [place] | | | | | [address] | [address] | | | | | [phone] | | | +--------+ + + + [...] Denise | | | | | | [place], [place] | | | | | | [address] | | | | | | [phone] | | | | | | | [...]
--- OUTSIDE RECORDS SUMMARY | ~2018-07-18 | XMS | Encounter Summary ---
Demographics + + + | Address | [address] | | | [place] [address] | + + + | Home Phone [...] | | | | | [place] [address] | | + + + + + | Thania Mallory | ECON | [address] | | | | | [place] [address] | | + + + + + | Deidra Weldon | ECON | [address] | | | | | [place] | | | | | [address] | | + + + + + Care Team Providers + +------+ + | Care Electrician Manager Name | Role | Phone | [...] | | Coordinators [address] | [address] [facility] | Update | | | | [facility] | [facility] | | | | | Road [place], [place] | [place], [place] | | | | | [address] | [address] | | | | | [phone] | [phone] | | | | | | | [...] | | | | | | [place], [place] | | | | | | [address] | | | | | | [phone] | | | | | | | | +--------+ + + + + documented as of this encounter Visit Diagnoses Not on filedocumented in this encounter"
--- OUTSIDE RECORDS SUMMARY | ~2018-07-18 | XMS | Encounter Summary ---
Demographics + + + | Address | [address] | | | [place] [address] | + + + | Home Phone [...] | | | | | [place] [address] | | + + + + + | Thania Mallory | ECON | [address] | | | | | [place] [address] | | + + + + + | Deidra Weldon | ECON | [address] | | | | | [place] | | | | | [address] | | + + + + + Care Team Providers + +------+ + | Care It Security Administrator Name | Role | Phone | [...] | Update | | | | [facility] | [facility] | | | | | Road [place], [place] | [place], [place] | | | | | [address] | [address] | | | | | [phone] | | | +--------+ + + + [...] Denise | | | | | | [place] | | | | | | [address] | | | | | | [phone] | | | | | | | | +--------+ + + + + documented as of this encounter Visit Diagnoses Not on filedocumented in this encounter"
--- OUTSIDE RECORDS SUMMARY | ~2018-07-18 | XMS | Encounter Summary ---
Demographics + + + | Address | [address] | | | [place] [address] | + + + | Home Phone [...] | | | | | [place] [address] | | + + + + + | Thania Mallory | ECON | [address] | | | | | [place] [address] | | + + + + + | Deidra Weldon | ECON | [address] | | | | | [place] | | | | | [address] | | + + + + + Care Team Providers + +------+ + | Care Service Or Work Dispatcher Name | Role | Phone | + +------+ + | Shahid Camargo MD | PCP | Unavailable | + +------+ + Reason for Visit +--------+ + | Reason | Comments | +--------+ + | Other | Requested [id number] | +--------+ + Encounter Details +--------+ + + + + | Date | Type | Department | Care Team | Description | +--------+ + + + + | 11/15/ | Telephone | Transplant | Jesus Edmond, | Other (Requested | | 2012 | | Coordinators [address] | [address] [facility] | [id number]) | | | | [address] [facility] | [facility] | | | | | Road [place], [place] | [place], [place] | | | | | [address] | [address] | | | | | [phone] | [phone] | | | | | | | [...] Denise | | | | | | [place] | | | | | | [address] | | | | | | [phone] | | | | | | | | +--------+ + + + + documented as of this encounter Visit Diagnoses Not on filedocumented in this encounter"
--- OUTSIDE RECORDS SUMMARY | ~2018-07-18 | XMS | Encounter Summary ---
Demographics + + + | Address | [address] | | | [place] [address] | + + + | Home Phone [...] | | | | | [place] [address] | | + + + + + | Thania Mallory | ECON | [address] | | | | | [place] [address] | | + + + + + | Deidra Weldon | ECON | [address] | | | | | [place] | | | | | [address] | | + + + + + [...] | | | | | [address] [facility] | [facility] | | | | | Road [place], [place] | [place], [place] | | | | | [address] | [address] | | | | | [phone] | | | +--------+ + + + [...] [place] | | | | | | [address] | | | | | | [phone] | | | | | | | | +--------+ + + + + documented as of this encounter Visit Diagnoses Not on filedocumented in this encounter"
--- OUTSIDE RECORDS SUMMARY | ~2018-07-18 | XMS | Encounter Summary ---
Demographics + + + | Address | [address] | | | [place] [address] | + + + | Home Phone [...] | | | | | [place] [address] | | + + + + + | Thania Mallory | ECON | [address] | | | | | [place] [address] | | + + + + + | Deidra Weldon | ECON | [address] | | | | | [place] | | | | | [address] | | + + + + + Care Team Providers + +------+ + | Care Broadcast News Producer Name | Role | Phone | [...] | | Jonathan Gallagher, | Sandra D[address] | | | | | | [address] | [address] | | | | | | Keven | Elias [place] | | | | | | [facility] | Road | | | | | | [address] | Mailcode: | | | | | | [address] | [address] | | | | | | [place] | [place] | | | | | | [place] | [place], [place] | | | | | | [address] | [address] | | | | | | Phone: | Phone: | | | | | | [phone] | [phone] | | | | | | Fax: | | | | | | | [phone] | | +--------+--------+ + + + + Encounter Details +--------+---------+ + + + | Date | Type | Department | Care Team | Description | +--------+---------+ + + + | 11/16/ | Office | Specialty Clinics | Sudhakar Joy | 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 [address] | MD Emanuel [address] | MEDICARE 8 | | | | [facility] | [facility] | (Primary Dx); HSP | | | | Mailcode: [facility] | [place], [place] | ([place] | | | | [place] | [address] | purpura) nephritis; | | | | [place], [place] | [phone] | Anemia of chronic | | | | [address] | | kidney failure, | | | | [phone] | Rtx, Pds [address] | unspecified stage | | | | | [address] [facility] | | | | | | Road [place], [place] | | | | | | [address] | | +--------+---------+ + + + Social [...] soon. Have your friend call Brittney about [phone] Sudhakar Joy MD documented in this encounter [...] [facility] [address]; Mail code [facility] [place], [place] [address] documented in this encounter Plan of Treatment +--------+ + + + + | Date | Type | Specialty | Care Team | Description | +--------+ + + + + | 05/04/ | Hospital | Adult Acute Care | El Starr MD | | | 2022 | Encounter | | [address] | | | | | | [place], [place] | | | | | | [address] | | | | | | [phone] | | | | | | | [...]
--- OUTSIDE RECORDS SUMMARY | ~2018-07-18 | XMS | Encounter Summary ---
Demographics + + + | Address | [address] | | | [place] [address] | + + + | Home Phone [...] | | | | | [place] [address] | | + + + + + | Thania Mallory | ECON | [address] | | | | | [place] [address] | | + + + + + | Deidra Weldon | ECON | [address] | | | | | [place] | | | | | [address] | | + + + + + Care Team Providers + +------+ + | Care Manager Winter Name | Role | Phone | + [...] | | Coordinators [address] MD [address] | | | | | [address] [facility] | [facility] | | | | | [place], [place] | [place], [place] | | | | | [address] | [address] | | | | | [phone] | [phone] | | | | | | | [...] [place] | | | | | | [address] | | | | | | [phone] | | | | | | | | +--------+ + + + + documented as of this encounter Visit Diagnoses Not on filedocumented in this encounter"
--- OUTSIDE RECORDS SUMMARY | ~2018-07-18 | XMS | Encounter Summary ---
Demographics + + + | Address | [address] | | | [place] [address] | + + + | Home Phone [...] | | | | | [place] [address] | | + + + + + | Thania Mallory | ECON | [address] | | | | | [place] [address] | | + + + + + | Deidra Weldon | ECON | [address] | | | | | [place] | | | | | [address] | | + + + + + Care Team Providers + +------+ + | Care Fabric Stretcher Name | Role | Phone | + [...] [place] | | | | | | [facility] | | | | | | [place], [place] | | | | | | [address] | | | +--------+ + + + [...] Denise | | | | | | [place], [place] | | | | | | [address] | | | | | | [phone] | | | | | | | [...] [facility] - | [address] | [place] [address] | | | IMMUNOGENETICS/TRANS | [address] | | | | PLANT LABORATORY | | | | + + + + + documented in this encounter Visit Diagnoses Not on filedocumented in this encounter"
--- OUTSIDE RECORDS SUMMARY | ~2018-07-18 | XMS | Encounter Summary ---
Demographics + + + | Address | [address] | | | [place] [address] | + + + | Home Phone [...] + + + | Author | [facility] | + + + | Organization | [facility] | + + + | Address | Unknown | + + + | Phone | Unavailable | + + + Support + + + + + | Name | Relationship | Address | Phone | + + + + + | Cory Weldon | ECON | [address] | | | | | [place] [address] | | + + + + + | Thania Mallory | ECON | [address] | | | | | [place] [address] | | + + + + + | Deidra Weldon | ECON | [address] | | | | | [place] | | | | | [address] | | + + + + + Care Team Providers + +------+ + | Care Wildlife Control Operator Name | Role | Phone | [...] [place] | | | | | | [facility] | | | | | | [place], [place] | | | | | | [address] | | | +--------+ + + + [...] Denise | | | | | | [place], [place] | | | | | | [address] | | | | | | [phone] | | | | | | | [...] [facility] - | [address], | [place] [address] | | | IMMUNOGENETICS/TRANS | [address] | | | | PLANT LABORATORY | | | | + + + + + documented in this encounter Visit Diagnoses Not on filedocumented in this encounter"
--- OUTSIDE RECORDS SUMMARY | ~2018-07-18 | XMS | Encounter Summary ---
Demographics + + + | Address | [address] | | | [place] [address] | + + + | Home Phone [...] | | | | | [place] [address] | | + + + + + | Thania Mallory | ECON | [address] | | | | | [place] [address] | | + + + + + | Deidra Weldon | ECON | [address] | | | | | [place] | | | | | [address] | | + + + + + Care Team Providers + +------+ + | Care Swimming Pool Cleaner Name | Role | Phone | [...] | lab/Provider | | | | Road [place], [place] | [place], [place] | updated) | | | | [address] | [address] | | | | | [phone] | [phone] | | | | | | | [...] | | | | | | [place] | | | | | | [address] | | | | | | [phone] | | | | | | | | +--------+ + + + + documented as of this encounter Visit Diagnoses Not on filedocumented in this encounter"
--- OUTSIDE RECORDS SUMMARY | ~2018-07-18 | XMS | Encounter Summary ---
Demographics + + + | Address | [address] | | | [place] [address] | + + + | Home Phone [...] | Author | [facility] | | | and Josephana | + + + | Organization | [facility] | | | and [...] Providers + +------+ + | Care Orthopedic Surgeon Name | Role | Phone | [...] | | KIDNEY TRANSPLANT | [address] [place], | | | | | [address] [place] | [place] [address] | | | | | [address] [place] | [phone] | | | | | [address] | | | | | | [phone] | | | +--------+ + + + [...]
--- OUTSIDE RECORDS SUMMARY | ~2018-07-18 | XMS | Encounter Summary ---
Demographics + + + | Address | [address] | | | [place] [address] | + + + | Home Phone [...] | | | | | [place] [address] | | + + + + + | Thania Mallory | ECON | [address] | | | | | [place] [address] | | + + + + + | Deidra Weldon | ECON | [address] | | | | | [place] | | | | | [address] | | + + + + + Care Team Providers + +------+ + | Care Social Service Technician Name | Role | Phone [...] (Drug | | | | [address] [facility] | [facility] [address] | screens) | | | | Road [place], [place] | [place], [place] | | | | | [address] | [address] | | | | | [phone] | | | +--------+ + + + [...] Denise | | | | | | [place] | | | | | | [address] | | | | | | [phone] | | | | | | | | +--------+ + + + + documented as of this encounter Visit Diagnoses Not on filedocumented in this encounter"
--- OUTSIDE RECORDS SUMMARY | ~2018-07-18 | XMS | Encounter Summary ---
Demographics + + + | Address | [address] | | | [place] [address] | + + + | Home Phone [...] | | | | | [place] [address] | | + + + + + | Thania Mallory | ECON | [address] | | | | | [place] [address] | | + + + + + | Deidra Weldon | ECON | [address] | | | | | [place] | | | | | [address] | | + + + + + Care Team Providers + +------+ + | Care Director Of Loss Prevention Name | Role | Phone | [...] | | | | | [address] [facility] | [facility] | | | | | Road [place], [place] | [place], [place] | | | | | [address] | [address] | | | | | [phone] | | | +--------+ + + + [...] [place] | | | | | | [address] | | | | | | [phone] | | | | | | | | +--------+ + + + + documented as of this encounter Visit Diagnoses Not on filedocumented in this encounter"
--- OUTSIDE RECORDS SUMMARY | ~2018-07-18 | XMS | Encounter Summary ---
Demographics + + + | Address | [address] | | | [place] [address] | + + + | Home Phone [...] | | | | | [place] [address] | | + + + + + | Thania Mallory | ECON | [address] | | | | | [place] [address] | | + + + + + | Deidra Weldon | ECON | [address] | | | | | [place] | | | | | [address] | | + + + + + Care Team Providers + +------+ + | Care Steam Presser Name | Role | Phone | [...] [address] | ABRIL [address] [facility] | | | | | [address] [facility] | [facility] | | | | | Road [place], [place] | [place], [place] | | | | | [address] | [address] | | | | | [phone] | | | +--------+ + + + [...] Denise | | | | | | [place], [place] | | | | | | [address] | | | | | | [phone] | | | | | | | | +--------+ + + + + documented as of this encounter Visit Diagnoses Not on filedocumented in this encounter"
--- OUTSIDE RECORDS SUMMARY | ~2018-07-18 | XMS | Encounter Summary ---
Demographics + + + | Address | [address] | | | [place] [address] | + + + | Home Phone [...] | | | | | [place] [address] | | + + + + + | Thania Mallory | ECON | [address] | | | | | [place] [address] | | + + + + + | Deidra Weldon | ECON | [address] | | | | | [place] | | | | | [address] | | + + + + + Care Team Providers + +------+ + | Care Towboat Pilot Name | Role | Phone | [...] W Shun [facility] | [facility] [address] | Query) | | | | Road [place], [place] | [place], [place] | | | | | [address] | [address] | | | | | [phone] | [phone] | | | | | | | [...] [place] | | | | | | [address] | | | | | | [phone] | | | | | | | | +--------+ + + + + documented as of this encounter Visit Diagnoses Not on filedocumented in this encounter"
--- OUTSIDE RECORDS SUMMARY | ~2018-07-18 | XMS | Encounter Summary ---
Demographics + + + | Address | [address] | | | [place] [address] | + + + | Home Phone [...] | | | | | [place] [address] | | + + + + + | Thania Mallory | ECON | [address] | | | | | [place] [address] | | + + + + + | Deidra Weldon | ECON | [address] | | | | | [place] | | | | | [address] | | + + + + + Care Team Providers + +------+ + | Care Tiedown Operator Name | Role | Phone | [...] | | | | | W Shun [facility] | [facility] | | | | | Road [place], [place] | [place], [place] | | | | | [address] | [address] | | | | | [phone] | | | +--------+ + + + [...] Denise | | | | | | [place] | | | | | | [address] | | | | | | [phone] | | | | | | | | +--------+ + + + + documented as of this encounter Visit Diagnoses Not on filedocumented in this encounter"
--- OUTSIDE RECORDS SUMMARY | ~2018-07-18 | XMS | Encounter Summary ---
Demographics + + + | Address | [address] | | | [place] [address] | + + + | Home Phone [...] | | | | | [place] [address] | | + + + + + | Thania Mallory | ECON | [address] | | | | | [place] [address] | | + + + + + | Deidra Weldon | ECON | [address] | | | | | [place] | | | | | [address] | | + + + + + Care Team Providers + +------+ + | Care Scrap Drop Engineer Name | Role | Phone | [...] Clair | | | | | [facility] | [place], [place] | | | | | [address] [facility] | [address] | | | | | [facility] | [phone] | | | | | Mailcode: DCH7 | | | | | | [place] | | | | | | [place], [place] | | | | | | [address] | | | | | | [phone] | | | +--------+ + + + [...] Denise | | | | | | [place], [place] | | | | | | [address] | | | | | | [phone] | | | | | | | [...] + + + + + | ELADIA NANU[facility] | [address] | [place] [address] | [phone] | | HOSPITAL | | | | [...] | [address] | [place] [address] | [phone] | | HOSPITAL | | | | + + + + + documented in this encounter Visit Diagnoses Not on filedocumented in this encounter"
--- OUTSIDE RECORDS SUMMARY | ~2018-07-18 | XMS | Encounter Summary ---
Demographics + + + | Address | [address] | | | [place] [address] | + + + | Home Phone [...] + + + | Author | [facility] [employer] | + + + | Organization [...] + +------+ + | Care Benefits Specialist Name | Role | Phone | + +------+ + | Jonathan Alonso MD | PCP | | + +------+ + Encounter Details +--------+ + + + + | Date | Type | Department | Care Team | Description | +--------+ + + + + | 06/12/ | Telephone | [facility]IEL [place] | Carolina Mahmood DO | | | 2018 | | Cardiology [place] | [address] | | | | | [address] | [place], [place] | | | | | [place] | [address] | | | | | [address] | | | | | | [phone] | | | +--------+ + + + [...] | | | | | [place] [address] | | | | | | [phone] | | | | | | | | +--------+---------+ + + + as of this encounter Visit Diagnoses Not on filein this encounter"
--- OUTSIDE RECORDS SUMMARY | ~2018-07-18 | XMS | Encounter Summary ---
Demographics + + + | Address | [address] | | | [place] [address] | + + + | Home Phone [...] | | | | | [place] [address] | | + + + + + | Thania Mallory | ECON | [address] | | | | | [place] [address] | | + + + + + | Deidra Weldon | ECON | [address] | | | | | [place] | | | | | [address] | | + + + + + Care Team Providers + +------+ + | Care Salon Sales Consultant Name | Role | Phone [...] | | | | Keven | [place] | | | | | | [facility] | [facility] | | | | | | [address] | Mailcode: | | | | | | Keven Drew | DCH7 | | | | | | [place] | [place] | | | | | | [place] | [place], [place] | | | | | | [address] | [address] | | | | | | Phone: | Phone: | | | | | | [phone] | [phone] | | | | | | Fax: | | | | | | | [phone] | | +--------+--------+ + + + + Encounter Details +--------+---------+ + + + | Date | Type | Department | Care Team | Description | +--------+---------+ + + + | 08/17/ | Office | Specialty Clinics | Sudhakar Joy | Anemia of chronic | | 2016 | Visit | at [facility] [address] | MD Emanuel [address] | kidney failure, | | | | [facility] | [facility] | stage 5 (HCC) | | | | Mailcode: DCH7 | [place], [place] | (Primary Dx); HSP | | | | [place] | [address] | (Jada-Schmanueln | | | | [place], [place] | [phone] | purpura) nephritis | | | | [address] | | | | | | [phone] | | | +--------+---------+ + + + [...] 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 She has moved into a new [facility]. She has collected enough money to [...] [address] Mail code [facility]-P [place], [place] [address] documented in this encounter Plan of Treatment +--------+ + + + + | Date | Type | Specialty | Care Team | Description | +--------+ + + + + | 05/04/ | Hospital | Adult Acute Care | El Starr MD | | | 2022 | Encounter | | [address] [place] | | | | | | [place], [place] | | | | | | [address] | | | | | | [phone] | | | | | | | [...]
--- OUTSIDE RECORDS SUMMARY | ~2018-07-18 | XMS | Encounter Summary ---
Demographics + + + | Address | [address] | | | [place] [address] | + + + | Home Phone [...] | | | | | [place] [address] | | + + + + + | Thania Mallory | ECON | [address] | | | | | [place] [address] | | + + + + + | Deidra Weldon | ECON | [address] | | | | | [place] | | | | | [address] | | + + + + + Care Team Providers + +------+ + | Care Senior Analytic Consultant Name | Role | Phone | [...] | Update | | | | [facility] | [facility] | | | | | Road [place], [place] | [place], [place] | | | | | [address] | [address] | | | | | [phone] | | | +--------+ + + + [...] [place] | | | | | | [address] | | | | | | [phone] | | | | | | | | +--------+ + + + + documented as of this encounter Visit Diagnoses Not on filedocumented in this encounter"
--- OUTSIDE RECORDS SUMMARY | ~2018-07-18 | XMS | Encounter Summary ---
Demographics + + + | Address | [address] | | | [place] [address] | + + + | Home Phone [...] + + + | Author | [facility] [employer] | + + + | Organization | [facility] | + + + [...] Team Providers + +------+ + | Care Hvac Project Engineer Name | Role | Phone | [...] + | 06/29/ | Refill | [facility] [place] | Stephanie Goodrich | Medication Refill | | 2018 | | Cardiology Jessy Obrien MA | | | | | [address] | | | | | | [place] | | | | | | [address] | | | | | | [phone] | | | +--------+--------+ + + + [...] | | | | | [place] [address] | | | | | | [phone] | | | | | | | | +--------+---------+ + + + as of this encounter Visit Diagnoses Not on filein this encounter"
--- OUTSIDE RECORDS SUMMARY | ~2018-07-18 | XMS | Encounter Summary ---
Demographics + + + | Address | [address] | | | [place] [address] | + + + | Home Phone [...] | | | | | [place] [address] | | + + + + + | Thania Mallory | ECON | [address] | | | | | [place] [address] | | + + + + + | Deidra Weldon | ECON | [address] | | | | | [place] | | | | | [address] | | + + + + + Care Team Providers + +------+ + | Care Sand Control Worker Name | Role | Phone | [...] | VERIFICATION) | | | | W [facility] | [facility] | | | | | Road [place], [place] | [place], [place] | | | | | [address] | [address] | | | | | [phone] | | | +--------+ + + + [...] | | | | | [place], [place] | | | | | | [address] | | | | | | [phone] | | | | | | | | +--------+ + + + + documented as of this encounter Visit Diagnoses Not on filedocumented in this encounter"
--- OUTSIDE RECORDS SUMMARY | ~2018-07-18 | XMS | Clinical Summary ---
Demographics + + + | Address | [address] | | | [place] [address] | + + + | Home Phone [...] Author | [facility] | | | and [place] | + + + | Organization | [facility] [...] Overview: Active Kidney Transplant Waiting List at [facility]: | | 03/07/2014 | [...] | | Treated by Dr. Joy, pediatric dentist. | + + + +---+ | ESRD [...] declot | | but reclotted). Listed at [facility] for kidney transplant - [...] | | | | | one in [place]. I | | | | | | [...] +--------+ +---------+--------+ | MEDICARE | MEDICA | [id number] | 05/05/19 | [phone] | | Medica | | | RE | | 13-Pre | 5 | | re | | | PART A | | sent | | | | | | AND B | | | | | | + +--------+ +--------+ +---------+--------+ | [employer] | MODA | [id number] | | [phone] | | Medica | [...] [place] | | | 2 (Home) | [address] | + +--------+ +--------+ + + | Cory Weldon | Person | Father | [birth year] | [address] | | | al/Fam | | 1970 | [phone] | [place] [address] | | | k[place] | | | 9 (Home) | | + +--------+ +--------+ + + Advance Directives Patient has advance care planning documents, and code status on file. For more information, please contact:[facility] [place] [address] + + + + + | Code Status | Date | Date | Comments | | | Activated | Inactivated | | + + + + + | Full Code | 02/24/2014 | 02/24/2014 | | | | 11:17 | 14:29 | | + + + + +
--- OUTSIDE RECORDS SUMMARY | ~2018-07-18 | XMS | Encounter Summary ---
Demographics + + + | Address | [address] | | | [place] [address] [...] | | | | | [place] [address] | | + + + + + | Thania Mallory | ECON | [address] | | | | | [place] [address] | | + + + + + | Deidra Weldon | ECON | [address] | | | | | [place] | | | | | [address] | | + + + + + Care Team Providers + +------+ + | Care Analytics Senior Manager Name | Role | Phone | [...] | Update | | | | W [facility] | [facility] | | | | | Road [place], [place] | [place], [place] | | | | | [address] | [address] | | | | | [phone] | | | +--------+ + + + [...] Denise | | | | | | [place], [place] | | | | | | [address] | | | | | | [phone] | | | | | | | | +--------+ + + + + documented as of this encounter Visit Diagnoses + + | Diagnosis | + + | 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
--- OUTSIDE RECORDS SUMMARY | ~2018-07-18 | XMS | Encounter Summary ---
Demographics + + + | Address | [address] | | | [place] [address] | + + + | Home Phone [...] | | | | | [place] [address] | | + + + + + | Thania Mallory | ECON | [address] | | | | | [place] [address] | | + + + + + | Deidra Weldon | ECON | [address] | | | | | [place] | | | | | [address] | | + + + + + Care Team Providers + +------+ + | Care Size Cutter Name | Role | Phone | [...] Family sheet & | | | | [facility] | [address] | crossmatch report) | | | | Mailcode: PP262 | [place], [place] | | | | | Physicians [address]feanyi | [address] | | | | | [address] [place], | [phone] | | | | | [place] [address] | | | | | | [phone] | | | +--------+ + + + [...] [place] | | | | | | [address] | | | | | | [phone] | | | | | | | | +--------+ + + + + documented as of this encounter Visit Diagnoses Not on filedocumented in this encounter"
--- OUTSIDE RECORDS SUMMARY | ~2018-07-18 | XMS | Encounter Summary ---
Demographics + + + | Address | [address] | | | [place] [address] | + + + | Home Phone [...] + + | Author | [facility] | + + + | Organization | [facility] | + + + | Address | Unknown | + + + | Phone | Unavailable | + + + Support + + + + + | Name | Relationship | Address | Phone | + + + + + | Cory Weldon | ECON | [address] | | | | | [place] [address] | | + + + + + | Thania Mallory | ECON | [address] | | | | | [place] [address] | | + + + + + | Deidra Weldon | ECON | [address] | | | | | [place] | | | | | [address] | | + + + + + Care Team Providers + +------+ + | Care Nurse Care Manager Name | Role | Phone [...] date) | | | | [address] [facility] | [facility] | | | | | Road [place], [place] | [place], [place] | | | | | [address] | [address] | | | | | [phone] | | | +--------+ + + + [...] Denise | | | | | | [place], [place] | | | | | | [address] | | | | | | [phone] | | | | | | | | +--------+ + + + + documented as of this encounter Visit Diagnoses Not on filedocumented in this encounter"
--- OUTSIDE RECORDS SUMMARY | ~2018-07-18 | XMS | Encounter Summary ---
Demographics + + + | Address | [address] | | | [place] [address] | + + + | Home Phone [...] | | | | | [place] [address] | | + + + + + | Thania Mallory | ECON | [address] | | | | | [place] [address] | | + + + + + | Deidra Weldon | ECON | [address] | | | | | [place] | | | | | [address] | | + + + + + Care Team Providers + +------+ + | Care Classifier Operator Name | Role | Phone | [...] [place] | | | | | | [facility] [address] [facility] | | | | | | [place], [place] | | | | | | [address] | | | +--------+ + + + [...] [place] | | | | | | [address] | | | | | | [phone] | | | | | | | [...] stage renal | | | AG ID VEA, BLOOD | e | 4:54 PM | [...] + + | [facility] - | [address] | [place] [address] | | | IMMUNOGENETICS/TRANS | [address] | | | | [facility] | | | | + + + + + documented in this encounter Visit Diagnoses + + | Diagnosis | + + | End stage renal disease (HCC) End stage renal disease | + + documented in this encounter"
--- OUTSIDE RECORDS SUMMARY | ~2018-07-18 | XMS | Encounter Summary ---
Demographics + + + | Address | [address] | | | [place] [address] | + + + | Home Phone [...] + + + | Author | [facility] [employer] [facility] | + + + | Organization | [facility] | + + + [...] Providers + +------+ + | Care Chemical Processing Supervisor Name | Role | Phone | + +------+ + | Jonathan Alonso MD | PCP | | + +------+ + Encounter Details +--------+ + + + + | Date | Type | Department | Care Team | Description | +--------+ + + + + | 06/25/ | Telephone | ADIEL [place] | Doris Alvarenga MA | | | 2018 | | Cardiology [place] | | | | | | [address] | | | | | | [place] | | | | | | [address] | | | | | | [phone] | | | +--------+ + + + [...] Álvarez | | | | | | [place] [address] | | | | | | [phone] | | | | | | | | +--------+---------+ + + + as of this encounter Visit Diagnoses Not on filein this encounter"
--- OUTSIDE RECORDS SUMMARY | ~2018-07-18 | XMS | Encounter Summary ---
Demographics + + + | Address | [address] | | | [place] [address] | + + + | Home Phone [...] | | | | | [place] [address] | | + + + + + | Thania Mallory | ECON | [address] | | | | | [place] [address] | | + + + + + | Deidra Weldon | ECON | [address] | | | | | [place] | | | | | [address] | | + + + + + Care Team Providers + +------+ + | Care Prenatal Genetic Counselor Name | Role | Phone [...] | Decision | | | | [facility] | [facility] | | | | | Road [place], [place] | [place], [place] | | | | | [address] | [address] | | | | | [phone] | | | +--------+ + + + [...] [place] | | | | | | [address] | | | | | | [phone] | | | | | | | | +--------+ + + + + documented as of this encounter Visit Diagnoses Not on filedocumented in this encounter"
--- OUTSIDE RECORDS SUMMARY | ~2018-07-18 | XMS | Encounter Summary ---
Demographics + + + | Address | [address] | | | [place] [address] | + + + | Home Phone [...] | | | | | [place] [address] | | + + + + + | Thania Mallory | ECON | [address] | | | | | [place] [address] | | + + + + + | Deidra Weldon | ECON | [address] | | | | | [place] | | | | | [address] | | + + + + + Care Team Providers + +------+ + | Care Zumba Instructor Name | Role | Phone | [...] | | 2015 | ann | [address] [facility] | | | | | | [facility] | | | | | | [place], [place] | | | | | | [address] | | | +--------+ + + + [...] [place] | | | | | | [address] | | | | | | [phone] | | | | | | | | +--------+ + + + + documented as of this encounter Visit Diagnoses Not on [facility]"
--- OUTSIDE RECORDS SUMMARY | ~2018-07-18 | XMS | Encounter Summary ---
Demographics + + + | Address | [address] | | | [place] [address] | + + + | Home Phone [...] | [facility] | | | and [place]ana | + + + | Organization | [facility] | | [...] Team Providers + +------+ + | Care Swing Tender Name | Role | Phone | [...] | stage renal | [address] | [address] [place] [address] | | | | | disease) | Shun Griffin | [place] | | | | | (HCC) | [address] | [address] | | | | | Anemia in | [place], [place] | [place], [place] | | | | | ESRD | [address] | [address] Phone: | | | | | (end-stage | Phone: | [phone] | | | | | renal | [phone] | Fax: | | | | | disease) | Fax: | [phone] | | | | | ([facility]) | [phone] | | | | | | Procedures [...] M, DO [address] | renal disease) ([facility]) | | | | [address] | [place], [place] [address] | (Primary Dx) | | | | [place] | [place] | | | | | [address] | [address] | | | | | [phone] | | | +--------+ + + + [...] Will recheck her in 2 weeks. : [place] Fina Alonso MD, PhD documented in this e ncounter Plan of Treatment Not on filedocumented as of this encounter Visit Diagnoses + + | Diagnosis | + + | ESRD (end stage renal disease) (HCC) - Primary End stage renal disease | + + documented in this encounter"
--- OUTSIDE RECORDS SUMMARY | ~2018-07-18 | XMS | Encounter Summary ---
Demographics + + + | Address | [address] | | | [place] [address] | + + + | Home Phone [...] | | | | | [place] [address] | | + + + + + | Thania Mallory | ECON | [address] | | | | | [place] [address] | | + + + + + | Deidra Weldon | ECON | [address] | | | | | [place] | | | | | [address] | | + + + + + Care Team Providers + +------+ + | Care Disability Coordinator Name | Role | Phone | [...] | Coordinators [address] [facility] | Update | | | | W [facility] | [facility] | | | | | Road [place], [place] | [place], [place] | | | | | [address] | [address] | | | | | [phone] | [phone] | | | | | | | [...] Denise | | | | | | [place], [place] | | | | | | [address] | | | | | | [phone] | | | | | | | | +--------+ + + + + documented as of this encounter Visit Diagnoses Not on filedocumented in this encounter"
--- OUTSIDE RECORDS SUMMARY | ~2018-07-18 | XMS | Encounter Summary ---
Demographics + + + | Address | [address] | | | [place] [address] | + + + | Home Phone [...] | | | | | [place] [address] | | + + + + + | Thania Mallory | ECON | [address] | | | | | [place] [address] | | + + + + + | Deidra Weldon | ECON | [address] | | | | | [place] | | | | | [address] | | + + + + + Care Team Providers + +------+ + | Care Information Assoc Name | Role | Phone | + [...] | | | | | [place] | [facility] | | | | | [facility] | [place], [place] | | | | | [address] | [address] | | | | | [facility] | [phone] | | | | | Mailcode: DCH7 | | | | | | [place] | | | | | | [place], [place] | | | | | | [address] | | | | | | [phone] | | | +--------+ + + + [...] Denise | | | | | | [place], [place] | | | | | | [address] | | | | | | [phone] | | | | | | | [...] + + | [facility] - | [address] | [place] | [phone] | | [place] | | | | + + + + + documented in this encounter Visit Diagnoses Not on filedocumented in this encounter"
--- OUTSIDE RECORDS SUMMARY | ~2018-07-18 | XMS | Encounter Summary ---
Demographics + + + | Address | [address] | | | [place] [address] | + + + | Home Phone [...] | | | | | [place] [address] | | + + + + + | Thania Mallory | ECON | [address] | | | | | [place] [address] | | + + + + + | Deidra Weldon | ECON | [address] | | | | | [place] | | | | | [address] | | + + + + + Care Team Providers + +------+ + | Care Employment Agency Manager Name | Role | Phone | [...] | recommendations) | | | | W [facility] | [facility] | | | | | Road [place], [place] | [place], [place] | | | | | [address] | [address] | | | | | [phone] | | | +--------+ + + + [...] Denise | | | | | | [place], [place] | | | | | | [address] | | | | | | [phone] | | | | | | | | +--------+ + + + + documented as of this encounter Visit Diagnoses Not on filedocumented in this encounter"
--- OUTSIDE RECORDS SUMMARY | ~2018-07-18 | XMS | Encounter Summary ---
Demographics + + + | Address | [address] | | | [place] [address] | + + + | Home Phone [...] Author | [facility] | | | and [place]ana | + + + | Organization | [facility] | | [...] Providers + +------+ + | Care Manager Sports Name | Role | Phone | + [...] | | KIDNEY TRANSPLANT | [address] [place], | | | | | [address] [place] | [place] [address] | | | | | [address] [place] | [phone] | | | | | [address] | | | | | | [phone] | | | +--------+ + + + [...]
--- OUTSIDE RECORDS SUMMARY | ~2018-07-18 | XMS | Encounter Summary ---
Demographics + + + | Address | [address] | | | [place] [address] | + + + | Home Phone [...] | | | | | [place] [address] | | + + + + + | Thania Mallory | ECON | [address] | | | | | [place] [address] | | + + + + + | Deidra Weldon | ECON | [address] | | | | | [place] | | | | | [address] | | + + + + + Care Team Providers + +------+ + | Care Touch Up Worker Name | Role | Phone | [...] 2012 | | Coordinators [address] | [address] | consultation (pt | | | | [address] | [facility] | request to change | | | | Road [place], [place] | [place], [place] | clinic appt) | | | | [address] | [address] | | | | | [phone] | | | +--------+ + + + [...] Denise | | | | | | [place] | | | | | | [address] | | | | | | [phone] | | | | | | | | +--------+ + + + + documented as of this encounter Visit Diagnoses Not on filedocumented in this encounter"
--- OUTSIDE RECORDS SUMMARY | ~2018-07-18 | XMS | Encounter Summary ---
Demographics + + + | Address | [address] | | | [place] [address] | + + + | Home Phone [...] | | | | | [place] [address] | | + + + + + | Thania Mallory | ECON | [address] | | | | | [place] [address] | | + + + + + | Deidra Weldon | ECON | [address] | | | | | [place] | | | | | [address] | | + + + + + Care Team Providers + +------+ + | Care Precipitator Supervisor Name | Role | Phone | [...] | [address] | [facility] | (HCC) (Primary Dx) | | | | [facility] | [place], [place] | | | | | Mailcode: UHS18 | [address] | | | | | [place], [place] | [phone] | | | | | [address] | | | | | | [phone] | | | +--------+---------+ + + + [...] a nutrition perspective. Argentina Mehta, MS, RD, COMMUNICATIONS WRITER, LD documented in this e ncounter Plan of Treatment +--------+ + + + + | Date | Type | Specialty | Care Team | Description | +--------+ + + + + | 05/04/ | Hospital | Adult Acute Care | El Starr MD | | | 2022 | Encounter | | [address] | | | | | | [place], [place] | | | | | | [address] | | | | | | [phone] | | | | | | | | +--------+ + + + + documented as of this encounter Procedures + +--------+ + + + | Procedure Name | Priori | Date/Time | Associated Diagnosis | Comments | | | ty | | | | + +--------+ + + + | [place] MNT INITIAL | Routin | 12/21/2012 | [...]
--- OUTSIDE RECORDS SUMMARY | ~2018-07-18 | XMS | Encounter Summary ---
Demographics + + + | Address | [address] | | | [place] [address] | + + + | Home Phone [...] | | | | | [place] [address] | | + + + + + | Thania Mallory | ECON | [address] | | | | | [place] [address] | | + + + + + | Deidra Weldon | ECON | [address] | | | | | [place] | | | | | [address] | | + + + + + Care Team Providers + +------+ + | Care Social Worker Assistant Name | Role | Phone | [...] Hoffmann | (Immunizations) | | | | [address] [facility] | [facility] | | | | | Road [place], [place] | [place], [place] | | | | | [address] | [address] | | | | | [phone] | | | +--------+ + + + [...] Denise | | | | | | [place], [place] | | | | | | [address] | | | | | | [phone] | | | | | | | | +--------+ + + + + documented as of this encounter Visit Diagnoses Not on filedocumented in this encounter"
--- OUTSIDE RECORDS SUMMARY | ~2018-07-18 | XMS | Encounter Summary ---
Demographics + + + | Address | [address] | | | [place] [address] | + + + | Home Phone [...] | | | | | [place] [address] | | + + + + + | Thania Mallory | ECON | [address] | | | | | [place] [address] | | + + + + + | Deidra Weldon | ECON | [address] | | | | | [place] | | | | | [address] | | + + + + + Care Team Providers + +------+ + | Care Food Cashier Name | Role | Phone | [...] | | | | Yrn Eliz[place] | [facility] | check-in on pt's | | | | Road [place], [place] | [place], [place] | support plan & | | | | [address] | [address] | social changes) | | | | [phone] | | | +--------+ + + + [...] Denise | | | | | | [place], [place] | | | | | | [address] | | | | | | [phone] | | | | | | | | +--------+ + + + + documented as of this encounter Visit Diagnoses Not on filedocumented in this encounter"
--- OUTSIDE RECORDS SUMMARY | ~2018-07-18 | XMS | Encounter Summary ---
Demographics + + + | Address | [address] | | | [place] [address] | + + + | Home Phone [...] + + + | Author | [facility] | + + + | Organization | [facility] | + + + | Address | Unknown | + + + | Phone | Unavailable | + + + Support + + + + + | Name | Relationship | Address | Phone | + + + + + | Cory Weldon | ECON | [address] | | | | | [place] [address] | | + + + + + | Thania Mallory | ECON | [address] | | | | | [place] [address] | | + + + + + | Deidra Weldon | ECON | [address] | | | | | [place] | | | | | [address] | | + + + + + Care Team Providers + +------+ + | Care Corporate Banking Officer Name | Role | Phone | [...] [facility] | | | | | [facility] | [place], [place] | | | | | [facility] [address] [facility] | [address] | | | | | [facility] | [phone] | | | | | Mailcode: DCH7 | | | | | | [address] | | | | | | [place], [place] | | | | | | [address] | | | | | | [phone] | | | +--------+--------+ + + + [...] [place] | | | | | | [address] | | | | | | [phone] | | | | | | | | +--------+ + + + + documented as of this encounter Visit Diagnoses Not on filedocumented in this encounter"
--- OUTSIDE RECORDS SUMMARY | ~2018-07-18 | XMS | Encounter Summary ---
Demographics + + + | Address | [address] | | | [place] [address] | + + + | Home Phone [...] | | | | | [place] [address] | | + + + + + | Thania Mallory | ECON | [address] | | | | | [place] [address] | | + + + + + | Deidra Weldon | ECON | [address] | | | | | [place] | | | | | [address] | | + + + + + Care Team Providers + +------+ + | Care Architectural Engineer Name | Role | Phone | [...] [address] | | | | | ([facility]) | [address] | Elias [place] | | | | | Procedures | [address] | Road | | | | | TRANSTHORACI | [place], [place] | Mailcode: | | | | | C | [address] | [id number] | | | | | ECHOCARDIOGR | Phone: | [place] | | | | | IMANI, PEDS | [phone] | [place], [place] | | | | | | Fax: | [address] | | | | | | [phone] | Phone: | | | | | | | [phone] | | | | | | | Fax: | | | | | | | [phone] | +--------+--------+ + + + + Diagnostic [...] [address] | | | | | ([facility]) | [address] | Elias Elizondo | | | | | Procedures | [address] | Road | | | | | TRANSTHORACI | [place], [place] | Mailcode: | | | | | C | [address] | [id number] | | | | | ECHOCARDIOGR | Phone: | [place] | | | | | KAJAL DIALLOS | [phone] | [place], [place] | | | | | | Fax: | [address] | | | | | | [phone] | Phone: | | | | | | | [phone] | | | | | | | Fax: | | | | | | | [phone] | +--------+--------+ + + + + Reason [...] [address] | | | | | ([facility]) | Shun Griffin | Elias Elizondo | | | | | Procedures | [address] | Road | | | | | TRANSTHORACI | [place], [place] | Mailcode: | | | | | C | [address] | [id number] | | | | | ECHOCARDIOGR | Phone: | [place] | | | | | AM, PEDS | [phone] | [place], [place] | | | | | | Fax: | [address] | | | | | | [phone] | Phone: | | | | | | | [phone] | | | | | | | Fax: | | | | | | | [phone] | +--------+--------+ + + + + Encounter Details +--------+ + + + + | Date | Type | Department | Care Team | Description | +--------+ + + + + | 12/20/ | Hospital | Pediatric Echo Lab | | | | 2012 | Encounter | at [facility] [address] | | | | | [address] | | | | | | Road Mailcode: | | | | | | [id number] [place] | | | | | | [place], [place] | | | | | | [address] | | | | | | [phone] | | | +--------+ + + + [...] Denise | | | | | | [place], [place] | | | | | | [address] | | | | | | [phone] | | | | | | | [...]
--- OUTSIDE RECORDS SUMMARY | ~2018-07-18 | XMS | Encounter Summary ---
Demographics + + + | Address | [address] | | | [place] [address] | + + + | Home Phone [...] + + + | Author | [employer] | + + + | Organization | [facility] | + + + [...] Providers + +------+ + | Care Fish Bailer Name | Role | Phone | + [...] | | | | | [place] [address] | | | | | | [phone] | | | +--------+ + + + [...] | | | | | [place] [address] | | | | | | [phone] | | | | | | | | +--------+---------+ + + + as of this encounter Visit Diagnoses Not on filein this encounter"
--- OUTSIDE RECORDS SUMMARY | ~2018-07-18 | XMS | Encounter Summary ---
Demographics + + + | Address | [address] | | | [place] [address] | + + + | Home Phone [...] + + + | Author | [employer] | + + + | [...] Providers + +------+ + | Care Chief Lifestyle Officer Name | Role | Phone | + +------+ + | Jonathan Alonso MD | PCP | | + +------+ + Reason for Visit +--------+ + | Reason | Comments | +--------+ + | Other | [facility] - most recent labs . | +--------+ + Encounter Details +--------+ + + + + | Date | Type | Department | Care Team | Description | +--------+ + + + + | 06/26/ | Documentati | [facility] | Daniela Alejandre | Other ([facility] | | 2018 | on Only | Cardiology Jessy | [place] Castellanos | [facility] - | | | | [address] | | most recent labs .) | | | | [place] | | | | | | [address] | | | | | | [phone] | | | +--------+ + + + [...] Álvarez | | | | | [facility] [place] [address] | | | | | | [phone] | | | | | | | | +--------+---------+ + + + as of this encounter Visit Diagnoses Not on filein this encounter"
--- OUTSIDE RECORDS SUMMARY | ~2018-07-18 | XMS | Encounter Summary ---
Demographics + + + | Address | [address] | | | [place] [address] | + + + | Home Phone [...] | | | | | [place] [address] | | + + + + + | Thania Mallory | ECON | [address] | | | | | [place] [address] | | + + + + + | Deidra Weldon | ECON | [address] | | | | | [place] | | | | | [address] | | + + + + + Care Team Providers + +------+ + | Care Pharmacist Hospital Name | Role | Phone | + [...] [address] | RN [address] [facility] | | | | | [address] [facility] | [facility] | | | | | Road [place], [place] | [place], [place] | | | | | [address] | [address] | | | | | [phone] | | | +--------+ + + + [...] | | | | | | [place], [place] | | | | | | [address] | | | | | | [phone] | | | | | | | | +--------+ + + + + documented as of this encounter Visit Diagnoses Not on filedocumented in this encounter"
--- OUTSIDE RECORDS SUMMARY | ~2018-07-18 | XMS | Encounter Summary ---
Demographics + + + | Address | [address] | | | [place] [address] | + + + | Home Phone [...] + + + | Author | [employer] | + + + | Organization | [facility] | + + + | [...] Providers + +------+ + | Care Marketing Project Coordinator Name | Role | Phone [...] + | 06/27/ | Documentati | [facility] [place] | [place], | Labs Only | | 2019 | on Only | Cardiology Jessy | ABRIL Martínez | | | | | [address] | | | | | | [place] | | | | | | [address] | | | | | | [phone] | | | +--------+ + + + [...] | | | | | [place] [address] | | | | | | [phone] | | | | | | | | +--------+---------+ + + + as of this encounter Visit Diagnoses Not on filein this encounter"
--- OUTSIDE RECORDS SUMMARY | ~2018-07-18 | XMS | Encounter Summary ---
Demographics + + + | Address | [address] | | | [place] [address] | + + + | Home Phone [...] + + + | Author | [employer] | + + + | Organization | [facility] | + + + [...] Team Providers + +------+ + | Care Mines Inspector Name | Role | Phone | [...] | | Internal | Diagnoses | | [facility] 4th | | | | Medicine | Acute | | [address] | | | | | respiratory | | [address] | | | | | distress | | [address] | | | | | Other | | [place], [place] | | | | | ascites | | [address] Phone: | | | | | Pleural | | [phone] | | | | | effusion on | | Fax: | | | | | right Chest | | [phone] | | | | | pain, | | | | | | | unspecified | | | | | | | type | | | +--------+--------+ + + + + Encounter Details +--------+ + + + + | Date | Type | Department | Care Team | Description | +--------+ + + + + | 05/26/ | Hospital | [facility] | Aneudy Hunter, | Pleural effusion on | | 2019 - | Encounter | [address] | MD [address] | right (Primary Dx); | | | | [facility] | [place] [address] | Chest pain, | | 06/01/ | | [address] | [phone] [place], | unspecified type; | | 2019 | | [place] [address] | MD [place] [address] | Other ascites; Acute | | | | [phone] | [address] | respiratory | | | | | [place] [address] | distress; End-stage | | | | | [phone] | renal disease on | | | | | | hemodialysis (HCC); | | | | | Anthony Belcher MD | Hyperkalemia; | | | | | [address] | Hyperphosphatemia; | | | | | [place] [address] | At high risk for | | | | | [phone] | electrolyte | | | | | | imbalance; Acute | | | | | Darell Kowalski MD | systolic CHF | | | | | [address] | (congestive heart | | | | | [place] [address] | failure) ([facility]); | | | | | [phone] | Hypoalbuminemia; | | | | | | Anemia in ESRD | | | | | | (end-stage renal | | | | | | disease) ([facility]); ESRD | | | | [...] note may be different from pierre coleman. [facility] Service: Hospitalist Physician Discharge Summary Pt: [...] 17. The mitral valve is normal. 18. Rnut-yw-bexsw ate eccentric mitral regurgitation is present. 19. [...] anemia of chronic disease who went to [facility] with increasing shortness of breath found to have right pleural effusion who was transfer red to [facility] underwent right-sided diagnostic and therapeutic thoracocentesis [...] hyperkalemia with that. I discussed with the oracle erp architect as well regarding not being on [place]/ARB. [...] Component Value Units Date/Time Culture, Body Fluid [[id number]] Collected: 05/26/18 1412 Specimen: Body Fluid from Pleural Fluid Updated: 05/30/18 0733 Specimen Description PLEURAL FLUID GRAM STAIN WBC'S SEEN GRAM STAIN NO ORGANISMS SEEN GRAM STAIN STAIN PERFORMED ON CYTOSPIN CULTURE NO GROWTH 4 DAYS Culture, Body Fluid [[id number]] Collected: 05/26/18 1513 Specimen: Other from Ascites Fluid Updated: 05/30/18 0732 Specimen Description ASCITES FLUID GRAM STAIN STAIN PERFORMED ON CYTOSPIN GRAM STAIN WBC'S SEEN GRAM STAIN NO EPITHELIAL CELLS SEEN GRAM STAIN NO ORGANISMS SEEN CULTURE NO GROWTH 4 DAYS Gram stain [[id number]] Collected: 05/29/18 1256 Specimen: Sputum from Thoracic Fluid Updated: 05/29/18 9569 Specimen Description THORACIC FLUID CULTURE 1+ WBC'S SEEN NO ORGANISMS SEEN Lactate dehydrogenase, body fluid [[id number]] Collected: 05/29/18 1256 Specimen: Body Fluid from Pleural, Right Updated: 05/29/18 1619 FLUID LDH 151 U/L Cholesterol, body fluid [[id number]] Collected: 05/29/18 1256 Specimen: Body Fluid from [...] [address] [place] [address] In 1 week Carolina Mahomod, DO [address] [place] [id number] In 1 week Daniela Ibarra MD [address] [facility] [id number] In 1 week Discharge took more than 35 minutes, to include final examination, discussion of admission, and preparation of prescriptions, instructions for ongoing care, follow up and dictation of summary. Signed: DARELL KOWALSKI MD 06/01/2018 9:59 AM Dictation software, SoundCloud, used which may contain error for similar sounding words even af ter review. Personal communication requested for any clarification. Portions of this chart may have been copied from previous notes for continuity of care purp ose in this encounter Discharge Instructions Daerll Kowalski MD - -Weigh yourself every day [...] may be different fro m the original. [facility] Department of Respiratory Residential Oxygen Evaluation (Evaluation is valid for 48 [...] note may be different from the original. [facility] Service: NEPHROLOGY Dialysis/ Progress Note Dara Louise 23 y.o. [id number] [id number] female [facility] Day: LOS: 6 days Patient with PMH [...] AV FISTULA; Surgeon: Rik Simon MD; Location: [facility] MAIN OR; Service: Vascula r; Laterality: Left; cephalic AV FISTULA REPAIR Left 03/07/2014 Procedure: AV FISTULA - GRAFT REPAIR/REVISION; Surgeon: Rik Simon MD; Location: [facility] IN OR; Service: Vascular; Laterality: Left; DECLOT GRAFT Left 03/07/2014 Procedure: GRAFT - DECLOT; Surgeon: Rik Simon MD; Location: [facility] OR; Service: Vas cular; Laterality: Left; DIALYSIS FISTULA CREATION N/A 04/08/2014 Procedure: DIALYSIS CATHETER - INSERTION; Surgeon: Rik Simon MD; Location: [facility] OR ; Service: Vascular; Laterality: N/A; tunneled catheter LAPAROSCOPIC PERITONEAL DIALYSIS CATHETER INSERTION x2 LAPAROSCOPIC PERITONEAL DIALYSIS CATHETER INSERTION Right 07/2013 current dialysis access MWF dialysis RENAL BIOPSY SUPERFICIALIZATION OF AV FISTULA Left 06/24/2014 Procedure: AV FISTULA - SUPERFICIALIZATION; Surgeon: Rik Simon MD; Location: [facility] OR; Service: Vascular; Laterality: Left; History reviewed. [...] up pneumonia . COMPARISON: CT CHEST WO BERNA Mariee (05/26/2018); XR CHEST 2 VIEW FRONTAL AND [...] 17. The mitral valve is normal. 18. Wgxr-bm-uhzeupgr eccentric mitral regurgitation i s present. 19. [...] mitral valve is normal. Mitral Kait ve: Cdjc-ay-gtnjtgcz eccentric mitral regurgitation is present. Tricuspid Valve: [...] maxP.08 mmHg TR Vmax: 2.7 4 m/s [employer] Scout: MOO Authenticated by: Robel Yusuf MD Report [...] 17. The mitral valve is normal. 18. Zfrd-lo-hjevv ate eccentric mitral regurgitation is present. 19. [...] pleural spac e is punctured with an 8-Czech thoracentesis catheter. Fluid is aspirated without complicat ion. The patient tolerated the procedure well. No immediate complications. Estimated Blood L oss: Minimal. Uncomplicated right thoracentesis. Drainage of 1500 cc clear straw-colored fluid. Signed b richa: Quang Bustos Sign Date/Time: 05/29/2018 3:39 PM [...] earlier and charting completed later Dictation software, SoundCloud, used which may contain error for similar [...] put on "an antibiotic" for pneumonia at [facility] ED. Was throwing up & could [...] the prelim submitted orders, MWF No acute GRID TRIMMER indication ESTEFANY as indicated with HD Protein [...] may be different from pierre quarles original. [facility] Service: Hospitalist Progress Note Pt: Dara Louise AGE/SEX: 23 y.o. female ROOM: 4441/4441-1 : 1995 PCP: TIEN NICHOLSON ADMIT DATE: 05/26/2018 TODAY'S DATE: 05/31/2018 Hospital Day/Hospital Course: LOS: [address] Belcher 23-year-old female with past medical history of end-stage renal disease on hemodialysis Mon, hypertension, anemia of chronic disease who went to [facility] with increasing shortness of breath found to have right pleural effusion who was transfer red to [facility] underwent right-sided diagnostic and therapeutic thoracocentesis [...] Component Value Units Date/Time Culture, Body Fluid [[id number]] Collected: 05/26/18 1412 Specimen: Body Fluid from Pleural Fluid Updated: 05/30/18 0733 Specimen Description PLEURAL FLUID GRAM STAIN WBC'S SEEN GRAM STAIN NO ORGANISMS SEEN GRAM STAIN STAIN PERFORMED ON CYTOSPIN CULTURE NO GROWTH 4 DAYS Culture, Body Fluid [[id number]] Collected: 05/26/18 1513 Specimen: Other from Ascites Fluid Updated: 05/30/18 0732 Specimen Description ASCITES FLUID GRAM STAIN STAIN PERFORMED ON CYTOSPIN GRAM STAIN WBC'S SEEN GRAM STAIN NO EPITHELIAL CELLS SEEN GRAM STAIN NO ORGANISMS SEEN CULTURE NO GROWTH 4 DAYS Gram stain [[id number]] Collected: 05/29/18 1256 Specimen: Sputum from Thoracic Fluid Updated: 05/29/18 2339 Specimen Description THORACIC FLUID CULTURE 1+ WBC'S SEEN NO ORGANISMS SEEN Lactate dehydrogenase, body fluid [[id number]] Collected: 05/29/18 1256 Specimen: Body Fluid from Pleural, Right Updated: 05/29/18 1619 FLUID LDH 151 U/L Cholesterol, body fluid [[id number]] Collected: 05/29/18 125 Specimen: Body Fluid from Pleural, Right Updated: 05/29/18 1619 FLUID CHOLESTEROL 56 mg/dL Sputum culture [[id number]] Collected: 05/27/182014 Specimen: Sputum from Sputum Updated: [...] 17. The mitral valve is normal. 18. Ucfo-yr-otskf ate eccentric mitral regurgitation is present. 19. [...] cc clear straw-colored fluid. Signed b y: Qunag Bustos Sign Date/Time: 05/29/2018 3:39 PM PROBLEM [...] anemia of chronic disease who went to [facility] with increasing shortness of breath due to acute congestive heart failure Acute systolic congestive heart failure with Pleural Effusion: Admitted with acute systolic congestive heart failure with bilateral pleural effusion stat us post thoracentesis 2. Her breathing has improved. She is talking to me appropriately. N ot in any kind of distress. coordinator volunteer services to initiate the discharge plan. Possible [...] MD, FACP 05/31/2018 9:42 AM Dictation software, SoundCloud, used which may contain error for similar sounding words even af ter review. Personal communication requested for any clarification. Portions of this chart may have been copied from previous notes for continuity of care purp Darell Segundo MD - 05/30/2018 9:09 AM PDTFormatting of this note may be different from pierre quarles original. [facility] Service: Hospitalist Progress Note Pt: Dara Louise AGE/SEX: 23 y.o. female ROOM: [facility]- : 1995 PCP: TIEN NICHOLSON ADMIT DATE: 05/26/2018 TODAY'S DATE: 05/30/2018 Hospital Day/Hospital Course: LOS: [address] Belcher 23-year-old female with past medical history of end-stage renal disease on hemodialysis Mon day Monday, hypertension, anemia of chronic disease who went to [facility] with increasing shortness of breath found to have right pleural effusion who was transfer red to [facility] underwent right-sided diagnostic and therapeutic thoracocentesis [...] Component Value Units Date/Time Culture, Body Fluid [[id number]] Collected: 05/26/18 1412 Specimen: Body Fluid from Pleural Fluid Updated: 05/30/18 0733 Specimen Description PLEURAL FLUID GRAM STAIN WBC'S SEEN GRAM STAIN NO ORGANISMS SEEN GRAM STAIN STAIN PERFORMED ON CYTOSPIN CULTURE NO GROWTH 4 DAYS Culture, Body Fluid [[id number]] Collected: 05/26/18 1513 Specimen: Other from Ascites Fluid Updated: 05/30/18 0732 Specimen Description ASCITES FLUID GRAM STAIN STAIN PERFORMED ON CYTOSPIN GRAM STAIN WBC'S SEEN GRAM STAIN NO EPITHELIAL CELLS SEEN GRAM STAIN NO ORGANISMS SEEN CULTURE NO GROWTH 4 DAYS Gram stain [[id number]] Collected: 05/29/18 1256 Specimen: Sputum from Thoracic Fluid Updated: 05/29/18 2339 Specimen Description THORACIC FLUID CULTURE 1+ WBC'S SEEN NO ORGANISMS SEEN Lactate dehydrogenase, body fluid [[id number]] Collected: 05/29/18 1256 Specimen: Body Fluid from Pleural, Right Updated: 05/29/18 1619 FLUID LDH 151 U/L Cholesterol, body fluid [[id number]] Collected: 05/29/18 1256 Specimen: Body Fluid from Pleural, Right Updated: 05/29/18 1619 FLUID CHOLESTEROL 56 mg/dL Sputum culture [[id number]] Collected: 05/27/182014 Specimen: Sputum from Sputum Updated: [...] 17. The mitral valve is normal. 18. Pxym-gq-jktpq ate eccentric mitral regurgitation is present. 19. [...] anemia of chronic disease who went to [facility] with increasing shortness of breath due to [...] MD, FACP 05/30/2018 9:10 AM Dictation software, SoundCloud, used which may contain error for similar sounding words even af ter review. Personal communication requested for any clarification. Portions of this chart may have been copied from previous notes for continuity of care purp Carolina Camarillo, DO - 05/29/2018 7:56 PM PDTFormatting of this note may be different from th e original. [facility] Service: Cardiology Progress Note Hospital Day: [...] Hospitalist Progress Note Dara Louise 23 y.o. [id number] 4441/[id number] female [facility] Day: LOS: 3 days Patient Summary: 23-year-old female with past medical history of end-stage renal dis ease on hemodialysis Monday, hypertension, anemia of chronic disease who we nt to [facility] with increasing shortness of breath found to have right pleural e ffusion who was transferred to [facility] underwent right-sided diagnostic and therapeu tic [...] Value Units Date/Time Lactate dehydrogenase, body fluid [[id number]] Collected: 05/29/18 1256 Specimen: Body Fluid from Pleural, Right Updated: 05/29/18 1315 Cholesterol, body fluid [[id number]] Collected: 05/29/18 1256 Specimen: Body Fluid from Pleural, Right Updated: 05/29/18 1315 Gram stain [[id number]] Collected: 05/29/18 1256 Specimen: Sputum from OTHR-w source desc (F6) Updated: 05/29/18 1309 Sputum culture [[id number]] Collected: 05/27/182014 Specimen: Sputum from Sputum Updated: 05/29/18 0947 Specimen Description SPUTUM GRAM STAIN LESS THAN 10 WBCS/LPF GRAM STAIN LESS THAN 10 SEC/LPF GRAM STAIN NO ORGANISMS SEEN CULTURE 1+ NORMAL UPPER RESPIRATORY ALESSANDRO HIV 1/2 Ab reflex [[id number]] Collected: 05/28/18 1236 Specimen: Blood Updated: 05/29/18 0942 HIV1/HIV2 NON REACTIVE Protime-INR [[id number]] Collected: 05/29/18 0852 Specimen: Blood Updated: 05/29/18 0940 INR 1.5 APTT [[id number]] Collected: 05/29/18 0852 Specimen: Blood Updated: 05/29/18939 APTT 29 seconds Culture, Body Fluid [[id number]] Collected: 05/26/18 1513 Specimen: Other from Ascites Fluid Updated: 05/29/18 09 Specimen Description ASCITES FLUID GRAM STAIN STAIN PERFORMED ON CYTOSPIN GRAM STAIN WBC'S SEEN GRAM STAIN NO EPITHELIAL CELLS SEEN GRAM STAIN NO ORGANISMS SEEN CULTURE NO GROWTH 3 DAYS Culture, Body Fluid [[id number]] Collected: 05/26/18 1412 Specimen: Body Fluid from Pleural Fluid Updated: 05/29/18917 Specimen Description PLEURAL FLUID CULTURE NO GROWTH 3 DAYS Comprehensive metabolic panel [[id number]] (Abnormal) Collected: 05/29/18456 Specimen: Blood Updated: 05/29/18615 [...] mL/min/1.73m2 CBC W/Auto Diff (Reflex to Manual) [[id number]] (Abnormal) Collected: 05/29/18456 Specimen: Blood Updated: 05/29/18612 [...] 0.05 K/uL MORPHOLOGY 2+ hCG, serum, qualitative [[id number]] Collected: 05/28/18922 Specimen: Blood Updated: 05/28/18 1950 TEST,SERUM NEGATIVE C-reactive protein [[id number]] (Abnormal) Collected: 05/28/18922 Specimen: Blood Updated: 05/28/18 1941 CRP 5.1 (H) mg/dL Sedimentation rate, automated [[id number]] Collected: 05/28/18922 Specimen: Blood Updated: 05/28/18 1734 ESR 2 mm/Hr Hepatitis panel,acute [[id number]] Collected: 05/28/18 1236 Specimen: Blood Updated: 05/28/18 1650 HAV AB,IGM NON REACTIVE HEP B SURFACE AG NON REACTIVE ANTI HEP B CORE,IGM NON REACTIVE HEPATITIS C NON REACTIVE HEPATITIS INTERP No serologic evidence of HAV, HBV, or HCV infection. Troponin I [[id number]] Collected: 05/28/18922 Specimen: Blood Updated: 05/28/18 1437 TROPONIN I 0.034 ng/mL Troponin I [[id number]] Collected: 05/28/18 1359 Specimen: Blood Updated: 05/28/18 1437 TROPONIN I 0.037 ng/mL Renal function panel [[id number]] (Abnormal) Collected: 05/28/18 1209 Specimen: Blood from Blood Updated: 05/28/18 1302 SODIUM 141 mmol/L POTASSIUM 4.3 mmol/L CHLORIDE 101 mmol/L CO2 29 mmol/L ANION GAP AGAP 15 mmol/L GLUCOSE 78 mg/dL BUN 43 (H) mg/dL CREATININE 7.97 (H) mg/dL CALCIUM 9.1 mg/dL Albumin 3.6 g/dL PHOSPHORUS 6.3 (H) mg/dL EGFR 6 (L) mL/min/1.73m2 CBC W/Auto Diff (Reflex to Manual) [[id number]] (Abnormal) Collected: 05/28/18922 Specimen: Blood Updated: 05/28/18 [...] 0.05 K/uL MORPHOLOGY 1+ Comprehensive metabolic panel [[id number]] (Abnormal) Collected: 05/28/18922 Specimen: Blood Updated: 05/28/18 [...] (H) U/L EGFR 6 (L) mL/min/1.73m2 TSH [[id number]] Collected: 05/28/18922 Specimen: Blood Updated: 05/28/18 1210 TSH 1.270 uIU/mL Pathologist consult [[id number]] Collected: 05/26/18 1412 Updated: 05/28/18 1113 Pathologist Consult -- Hepatitis panel, chronic [[id number]] (Abnormal) Collected: 05/27/18 1758 Updated: 05/27/18 2031 Hep A Total Ab REACTIVE (A) HEP B SURFACE AG NON REACTIVE HEP B CORE AB,TOTAL NON REACTIVE HEP B SURFACE ANTIBODY 3.27 (H) IV HEPATITIS C NON REACTIVE HEPATITIS INTERP Current or past HAV infection. Past HBV infection or vaccination. No ser ologic evidence of HCV infection. CBC w/auto diff (reflex to manual) [[id number]] (Abnormal) Collected: 05/27/18 0425 Specimen: Blood Updated: [...] K/uL MORPHOLOGY 2+ Platelet Estimate DECREASED Phosphorus [[id number]] (Abnormal) Collected: 05/27/18424 Specimen: Blood Updated: 05/27/18628 PHOSPHORUS 8.0 (H) mg/dL Basic Metabolic Panel [[id number]] (Abnormal) Collected: 05/27/18424 Specimen: Blood Updated: 05/27/18628 SODIUM 135 mmol/L POTASSIUM 5.9 (H) mmol/L CHLORIDE 96 (L) mmol/L CO2 25 mmol/L ANION GAP AGAP 20 mmol/L GLUCOSE 74 mg/dL BUN 51 (H) mg/dL CREATININE 9.2 (H) mg/dL BUN/CREAT 6 CALCIUM 9.4 mg/dL EGFR 5 (L) mL/min/1.73m2 Magnesium [[id number]] (Abnormal) Collected: 05/27/18424 Specimen: Blood Updated: 05/27/1829 MAGNESIUM 2.7 (H) mg/dL Brain natriuretic peptide [[id number]] (Abnormal) Collected: 05/27/18424 Specimen: Blood Updated: 05/27/18 0546 BRAIN NATRIURETIC PEPTIDE 1,153.92 (H) pg/mL Respiratory Filmarray [[id number]] (Abnormal) Collected: 05/26/181805 Specimen: Nasopharynx/Oropharynx Updated: 05/26/182141 [...] performed by Molecular Methodology MRSA by PCR [[id number]] Collected: 05/26/18 180 Specimen: Nasopharyngeal from Nares(Nose) Updated: 05/26/182025 SOURCE NARES(NOSE) MRSA PCR NEGATIVE Procalcitonin [[id number]] (Abnormal) Collected: 05/26/18 1727 Updated: 05/26/18 1839 PROCALCITONIN 0.76 (H) ng/mL Albumin, Body Fluid [[id number]] Collected: 05/26/181411 Specimen: Body Fluid from Lung, Right Lower Lobe Updated: 05/26/181728 FLUID ALBUMIN 2.3 g/dL Total Protein, Body Fluid [[id number]] Collected: 05/26/181411 Specimen: Body Fluid from Lung, Right Lower Lobe Updated: 05/26/181728 FLUID TOTAL PROTEIN 4.2 g/dL FLUID TP SOURCE PLEURAL FLUID Cell count, Body Fluid [[id number]] Collected: 05/26/181411 Specimen: Body Fluid from Lung, Right Lower Lobe Updated: 05/26/18 170 FLUID TYPE PLEURAL FLUID COLOR SAMMIE APPEARANCE CLOUDY RBC'S 3,000 /mm3 TOTAL NUCLEATED CELLS 253 /mm3 NEUTROPHILS 22 % LYMPHOCYTES 8 % MONOCYTES/MACROPHAGES 65 % Mesothelial Cells 5 % CELLS COUNTED 100 pH, Body Fluid [[id number]] Collected: 05/26/181411 Specimen: Body Fluid from Lung, [...] 17. The mitral valve is normal. 18. Ncih-gf-zrglfrli eccentric mitral regurgitation i s present. 19. [...] mitral valve is normal. Mitral Kait ve: Fpmd-fc-bubdfsnd eccentric mitral regurgitation is present. Tricuspid Valve: [...] maxP.08 mmHg TR Vmax: 2.7 4 m/s [employer] Scout: MOO Authenticated by: Robel Yusuf MD Report [...] 17. The mitral valve is normal. 18. Smgz-qo-qqfhr ate eccentric mitral regurgitation is present. 19. [...] note may be different from e original. Hospital Problem List: Active Problems: [...] put on "an antibiotic" for pneumonia at [facility] ED. Was throwing up & could [...] the prelim submitted orders, MWF No acute GRID TRIMMER indication ESTEFANY as indicated with HD Protein [...] Hospitalist Progress Note Dara Louise 23 y.o. [id number] female [facility] Day: LOS: 2 days Patient Summary: 23-year-old female with past medical history of end-stage renal dis ease on hemodialysis Monday, hypertension, anemia of chronic disease who we nt to [facility] with increasing shortness of breath found to have right pleural e ffusion who was transferred to [facility] underwent right-sided diagnostic and therapeu tic [...] [69-87] 70 (05/28 0745) Resp: [18] 18 (05/28 0645) SpO2: [91 %-99 %] 91 % (05/28 [...] Component Value Units Date/Time Culture, Body Fluid [[id number]] Collected: 05/26/18 1513 Specimen: Other from Ascites Fluid Updated: 05/28/18 1225 Specimen Description ASCITES FLUID GRAM STAIN STAIN PERFORMED ON CYTOSPIN GRAM STAIN WBC'S SEEN GRAM STAIN NO EPITHELIAL CELLS SEEN GRAM STAIN NO ORGANISMS SEEN CULTURE NO GROWTH 2 DAYS Culture, Body Fluid [[id number]] Collected: 05/26/18 1412 Specimen: Body Fluid from Pleural Fluid Updated: 05/28/18 1223 Specimen Description PLEURAL FLUID CULTURE NO GROWTH 2 DAYS Comprehensive metabolic panel [[id number]] (Abnormal) Collected: 05/28/18 0923 Specimen: Blood Updated: [...] (H) U/L EGFR 6 (L) mL/min/1.73m2 TSH [[id number]] Collected: 05/28/18922 Specimen: Blood Updated: 05/28/18 1210 TSH 1.270 uIU/mL Pathologist consult [[id number]] Collected: 05/26/18 1412 Updated: 05/28/18 1113 Pathologist Consult -- Troponin I [[id number]] Collected: 05/28/18922 Specimen: Blood Updated: 05/28/18 1055 CBC W/Auto Diff (Reflex to Manual) [[id number]] Collected: 05/28/18922 Specimen: Blood Updated: 05/28/18938 Sputum culture [[id number]] Collected: 05/27/182014 Specimen: Sputum from Sputum Updated: 05/28/18902 Specimen Description SPUTUM GRAM STAIN LESS THAN 10 WBCS/LPF GRAM STAIN LESS THAN 10 SEC/LPF GRAM STAIN NO ORGANISMS SEEN CULTURE CULTURE IN PROGRESS Hepatitis panel, chronic [[id number]] (Abnormal) Collected: 05/27/18 1758 Updated: 05/27/182030 Hep A Total Ab REACTIVE (A) HEP B SURFACE AG NON REACTIVE HEP B CORE AB,TOTAL NON REACTIVE HEP B SURFACE ANTIBODY 3.27 (H) IV HEPATITIS C NON REACTIVE HEPATITIS INTERP Current or past HAV infection. Past HBV infection or vaccination. No ser ologic evidence of HCV infection. CBC w/auto diff (reflex to manual) [[id number]] (Abnormal) Collected: 05/27/18 0425 Specimen: Blood Updated: [...] K/uL MORPHOLOGY 2+ Platelet Estimate DECREASED Phosphorus [[id number]] (Abnormal) Collected: 05/27/18424 Specimen: Blood Updated: 05/27/18628 PHOSPHORUS 8.0 (H) mg/dL Basic Metabolic Panel [[id number]] (Abnormal) Collected: 05/27/18424 Specimen: Blood Updated: 05/27/18628 SODIUM 135 mmol/L POTASSIUM 5.9 (H) mmol/L CHLORIDE 96 (L) mmol/L CO2 25 mmol/L ANION GAP AGAP 20 mmol/L GLUCOSE 74 mg/dL BUN 51 (H) mg/dL CREATININE 9.2 (H) mg/dL BUN/CREAT 6 CALCIUM 9.4 mg/dL EGFR 5 (L) mL/min/1.73m2 Magnesium [[id number]] (Abnormal) Collected: 05/27/18424 Specimen: Blood Updated: 05/27/18628 MAGNESIUM 2.7 (H) mg/dL Brain natriuretic peptide [[id number]] (Abnormal) Collected: 05/27/18424 Specimen: Blood Updated: 05/27/1846 BRAIN NATRIURETIC PEPTIDE 1,153.92 (H) pg/mL Respiratory Filmarray [[id number]] (Abnormal) Collected: 05/26/181805 Specimen: Nasopharynx/Oropharynx Updated: 05/26/182141 [...] performed by Molecular Methodology MRSA by PCR [[id number]] Collected: 03/23/19 1806 Specimen: Nasopharyngeal from Nares(Nose) Updated: 05/26/18 2026 SOURCE NARES(NOSE) MRSA PCR NEGATIVE Procalcitonin [[id number]] (Abnormal) Collected: 05/26/18 1727 Updated: 05/26/18 1839 PROCALCITONIN 0.76 (H) ng/mL Albumin, Body Fluid [[id number]] Collected: 05/26/18 141 Specimen: Body Fluid from Lung, Right Lower Lobe Updated: 05/26/18 172 FLUID ALBUMIN 2.3 g/dL Total Protein, Body Fluid [[id number]] Collected: 05/26/18 141 Specimen: Body Fluid from Lung, Right Lower Lobe Updated: 05/26/181728 FLUID TOTAL PROTEIN 4.2 g/dL FLUID TP SOURCE PLEURAL FLUID Cell count, Body Fluid [[id number]] Collected: 05/26/18 141 Specimen: Body Fluid from Lung, Right Lower Lobe Updated: 05/26/18 1708 FLUID TYPE PLEURAL FLUID COLOR SAMMIE APPEARANCE CLOUDY RBC'S 3,000 /mm3 TOTAL NUCLEATED CELLS 253 /mm3 NEUTROPHILS 22 % LYMPHOCYTES 8 % MONOCYTES/MACROPHAGES 65 % Mesothelial Cells 5 % CELLS COUNTED 100 pH, Body Fluid [[id number]] Collected: 05/26/18 141 Specimen: Body Fluid from Lung, Right Lower Lobe Updated: 05/26/18 1508 FLUID PH 7.45 Procalcitonin [[id number]] (Abnormal) Collected: 05/26/18 1214 Updated: 05/26/18 1330 PROCALCITONIN 0.56 (H) ng/mL Cardiac Panel [[id number]] (Abnormal) Collected: 05/26/18 1214 Updated: 05/26/18 1312 [...] ng/mL CK-MB Index 2.7 Brain natriuretic peptide [[id number]] (Abnormal) Collected: 05/26/18 1214 Updated: 05/26/18 1254 [...] radiologist report and is used for image [employer] only Echo Cardiac Adult Complete Result Date: [...] 17. The mitral valve is normal. 18. Jzoz-wk-fzwmnvsp eccentric mitral regurgitation i s present. 19. [...] mitral valve is normal. Mitral Kait ve: Dpfb-op-kcaovumv eccentric mitral regurgitation is present. Tricuspid Valve: [...] maxP.08 mmHg TR Vmax: 2.7 4 m/s [employer] Scout: MOO Authenticated by: Robel Yusuf MD Report [...] 17. The mitral valve is normal. 18. Pkwb-vi-wysqv ate eccentric mitral regurgitation is present. 19. [...] Hospitalist Progress Note Dara Louise 23 y.o. [id number] female [facility] Day: LOS: 1 day Patient Summary: 23-year-old female with past medical history of end-stage renal dis ease on hemodialysis Monday, hypertension, anemia of chronic disease who we nt to [facility] with increasing shortness of breath found to have right pleural e ffusion who was transferred [facility] underwent right-sided diagnostic and therapeu tic [...] Date/Time CBC w/auto diff (reflex to manual) [[id number]] (Abnormal) Collected: 05/27/18424 Specimen: Blood Updated: 05/27/18710 [...] K/uL MORPHOLOGY 2+ Platelet Estimate DECREASED Phosphorus [[id number]] (Abnormal) Collected: 05/27/18424 Specimen: Blood Updated: 05/27/18 06 PHOSPHORUS 8.0 (H) mg/dL Basic Metabolic Panel [[id number]] (Abnormal) Collected: 05/27/18424 Specimen: Blood Updated: 05/27/18628 SODIUM 135 mmol/L POTASSIUM 5.9 (H) mmol/L CHLORIDE 96 (L) mmol/L CO2 25 mmol/L ANION GAP AGAP 20 mmol/L GLUCOSE 74 mg/dL BUN 51 (H) mg/dL CREATININE 9.2 (H) mg/dL BUN/CREAT 6 CALCIUM 9.4 mg/dL EGFR 5 (L) mL/min/1.73m2 Magnesium [[id number]] (Abnormal) Collected: 05/27/18424 Specimen: Blood Updated: 05/27/1829 MAGNESIUM 2.7 (H) mg/dL Brain natriuretic peptide [[id number]] (Abnormal) Collected: 05/27/18424 Specimen: Blood Updated: 05/27/1846 BRAIN NATRIURETIC PEPTIDE 1,153.92 (H) pg/mL Respiratory Filmarray [[id number]] (Abnormal) Collected: 05/26/181805 Specimen: Nasopharynx/Oropharynx Updated: 05/26/182141 [...] performed by Molecular Methodology MRSA by PCR [[id number]] Collected: 05/26/181805 Specimen: Nasopharyngeal from Nares(Nose) Updated: 05/26/182025 SOURCE NARES(NOSE) MRSA PCR NEGATIVE Procalcitonin [[id number]] (Abnormal) Collected: 05/26/18 1727 Updated: 05/26/18 1839 PROCALCITONIN 0.76 (H) ng/mL Culture, Body Fluid [[id number]] Collected: 05/26/18 141 Specimen: Body Fluid from Pleural Fluid Updated: 05/26/18 1811 Pathologist consult [[id number]] Collected: 05/26/18 141 Updated: 05/26/18 1742 Albumin, Body Fluid [[id number]] Collected: 05/26/18 141 Specimen: Body Fluid from Lung, Right Lower Lobe Updated: 05/26/18 172 FLUID ALBUMIN 2.3 g/dL Total Protein, Body Fluid [[id number]] Collected: 05/26/18 141 Specimen: Body Fluid from Lung, Right Lower Lobe Updated: 05/26/18 172 FLUID TOTAL PROTEIN 4.2 g/dL FLUID TP SOURCE PLEURAL FLUID Cell count, Body Fluid [[id number]] Collected: 05/26/18 141 Specimen: Body Fluid from Lung, Right Lower Lobe Updated: 05/26/18 1708 FLUID TYPE PLEURAL FLUID COLOR SAMMIE APPEARANCE CLOUDY RBC'S 3,000 /mm3 TOTAL NUCLEATED CELLS 253 /mm3 NEUTROPHILS 22 % LYMPHOCYTES 8 % MONOCYTES/MACROPHAGES 65 % Mesothelial Cells 5 % CELLS COUNTED 100 Culture, Body Fluid [[id number]] Collected: 05/26/18 1513 Specimen: Other from Ascites Fluid Updated: 05/26/18 1631 Specimen Description ASCITES FLUID GRAM STAIN STAIN PERFORMED ON CYTOSPIN GRAM STAIN WBC'S SEEN GRAM STAIN NO EPITHELIAL CELLS SEEN GRAM STAIN NO ORGANISMS SEEN CULTURE PENDING pH, Body Fluid [[id number]] Collected: 05/26/18 1412 Specimen: Body Fluid from Lung, Right Lower Lobe Updated: 05/26/18 1508 FLUID PH 7.45 Procalcitonin [[id number]] (Abnormal) Collected: 05/26/18 1214 Updated: 05/26/18 1330 PROCALCITONIN 0.56 (H) ng/mL Cardiac Panel [[id number]] (Abnormal) Collected: 05/26/18 1214 Updated: 05/26/18 1312 [...] ng/mL CK-MB Index 2.7 Brain natriuretic peptide [[id number]] (Abnormal) Collected: 05/26/18 1214 Updated: 05/26/18 1254 [...] radiologist report and is used for image [employer] only PROBLEM LIST Active Problems: ESRD on [...] heparin ANTHONY BELCHER MD 05/27/2018 Jae Gutierres, [facility] - 05/26/2018 6:05 PM PDTRenal Dosing [...] Álvarez | | | | | | [place] [address] | | | | | | [phone] | | | | | | | [...] + + | CBC W/AUTO DIFF | INOCECNIO | 05/27/2018 | | Results for this [...] | + +--------+ + + + | JOSE CARD PANEL W/O | STAT | 05/26/2018 [...] | | | | | performed at [facility], [address] | | | | [address], | | | | | [place] [address] | | | + + + + + + + | Specimen | + + | Blood | + + + + + + + | Performing | Address | City/State/Zipcode | Phone Number | | Organization | | | | + + + + + | [facility] | [address] | [place] [address] | [phone] | | LABORATORY | [address] | | [...] [address] | | | | | [employer], | | | | | [place] [address] | | | | |Testing performed at L, [address] [employer], [place] [address] | | | | | | | | + + + + + + + | Specimen | + + | Blood | + + + + + + + | Performing | Address | City/State/Zipcode | Phone Number | | Organization | | | | + + + + + | [facility] | [address] | [place] [address] | [phone] | | LABORATORY | [address]vd[address] | | [...] (L)Comment: GFR <60: | >60 mL/min/1.73m2 | [facility] | | | CHRONIC KIDNEY DISEASE, [...] the | | | | | MDRD IDNH traceable | | | | | equation.Testing | | | | | performed at [facility], [address] | | | | | [facility], | | | | | [place] [address] | | | + + + + + + + | Specimen | + + | Blood | + + + + + + + | Performing | Address | City/State/Zipcode | Phone Number | | Organization | | | | + + + + + | [facility] | [address] | [place] [address] | [phone] | | LABORATORY | Blvd. | | [...] performed | | | | | at [facility], [address] | | | | | [employer], | | | | | [place] [address] | | | | |Testing performed at [facility], [address] [place] [address] | | | | | | | | + + + + + + + | Specimen | + + | Blood | + + + + + + + | Performing | Address | City/State/Zipcode | Phone Number | | Organization | | | | + + + + + | [facility] | [address] | [place] [address] | [phone] | | LABORATORY | Blvd. | | [...] systolic CHF (congestive heart failure) ([facility]) Transaminitis | | | The patient [...] | | | antibiotic" for pneumonia at [facility] ED. Was throwing up & could [...] | | | | | performed at [facility], [address] | | | | | [facility], | | | | | [place] [address] | | | + + + + + + + | Specimen | + + | Blood | + + + + + + + | Performing | Address | City/State/Zipcode | Phone Number | | Organization | | | | + + + + + | [facility] | [address] [place] [address] | [place] [address] | [phone] | | LABORATORY | [facility]. | | | + + + + [...] performed | | | | | at [facility], [address] | | | | | [facility], | | | | | [place] [address] | | | | |Testing performed at [facility], [address] [facility], [place] [address] | | | | | | | | + + + + + + + | Specimen | + + | Blood | + + + + + + + | Performing | Address | City/State/Zipcode | Phone Number | | Organization | | | | + + + + + | [facility] | [address] | [place] [address] | [phone] | | LABORATORY | Blvd. | | [...] | + + + + + | [facility] | [address] | [place] [address] | | + + + + + Cholesterol, body fluid (05/29/2018 12:56 PM) + + + + + | Component | Value | Ref Range | Performed At | + + + + + | FLUID CHOLESTEROL | 56Comment: This is not a | mg/dL | [facility] | | | reinforcing steel erector validated | | LABORATORY | | | sample type for this | | | | | method. No reference | | | | | ranges have been | | | | | established.Testing | | | | | performed at [facility], [address] | | | | | [facility], | | | | | [place] [address] | | | + + + + + + + | Specimen | + + | Body Fluid - | | Pleural, Right | + + + + + + + | Performing | Address | City/State/Zipcode | Phone Number | | Organization | | | | + + + + + | [facility] | [address] [place] [address] | [place] [address] | [phone] | | LABORATORY | Blvd. | | | + + + + + Lactate dehydrogenase, body fluid (05/29/2018 12:56 PM) + + + + + | Component | Value | Ref Range | Performed At | + + + + + | FLUID LDH | 151Comment: This is not | U/L | [facility] | | | a reinforcing steel erector validated | | LABORATORY | | | sample type for this | | | | | method. No reference | | | | | ranges have been | | | | | established.Testing | | | | | performed at [facility], [address] | | | | | [facility], | | | | | [place] [address] | | | + + + + + + + | Specimen | + + | Body Fluid - | | Pleural, Right | + + + + + + + | Performing | Address | City/State/Zipcode | Phone Number | | Organization | | | | + + + + + | [facility] | [address] | [place] [address] | [phone] | | LABORATORY | [address] | | [...] | + + + + + | [facility] | [address] | [place] [address] | [phone] | | LABORATORY | Blvd. | | [...] ULTRASOUND GUIDED RIGHT THORACENTESIS CLINICAL INFORMATION: | [facility] | | therapeutic thoracentesis PROCEDURE: Prior to [...] | | space is punctured with an 8-Czech thoracentesis catheter. Fluid is | | | [...] the pleural space is punctured with an 8-Czech | | thoracentesis catheter. Fluid is aspirated [...] | + + + + + | [facility] | [address] | [place] [address] | | + + + + + APTT (05/29/2018 8:52 AM) + + + + + | Component | Value | Ref Range | Performed At | + + + + + | APTT | 29Comment: Testing | 23 - 32 seconds | [facility] [facility]AT[facility] | | | performed at [facility];[address] | | | | | [address] [facility];[place], [place] | | | | | [address] | | | + + + + + + + | Specimen | + + | Blood | + + + + + + + | Performing | Address | City/State/Zipcode | Phone Number | | Organization | | | | + + + + + | [facility] | [address] | [place] [address] | | + + + + + Protime-INR (05/29/2018 8:52 AM) + + + + + | Component | Value | Ref Range | Performed At | + + + + + | INR | 1.5Comment: REFERENCE | | [facility] | | | RANGE:0.9 [...] at [facility] | | | | | [address];[place], [place] | | | | | [address] | | | + + + + + + + | Specimen | + + | Blood | + + + + + + + | Performing | Address | City/State/Zipcode | Phone Number | | Organization | | | | + + + + + | [facility] | [address] | [place] [address] | | + + + + + [...] 0.8 (L) | 1.0 - 2.4 | [facility] | | | | | LABORATORY | + + + + + | TBIL | 0.8Comment: SPECIMEN | 0.1 - 1.5 mg/dL | [facility] | | | SLIGHTLY HEMOLYZED | [...] | | | | | performed at [facility], [address] | | | | | [facility], | | | | | [place] [address] | | | + + + + + + + | Specimen | + + | Blood | + + + + + + + | Performing | Address | City/State/Zipcode | Phone Number | | Organization | | | | + + + + + | [facility] | [address] | [place] [address] | [phone] | | LABORATORY | [address] | | [...] [address], | | | | | [place] [address] | | | | |Testing performed at [facility], [address] [facility], [place] [address] | | | | | | | | + + + + + + + | Specimen | + + | Blood | + + + + + + + | Performing | Address | City/State/Zipcode | Phone Number | | Organization | | | | + + + + + | [facility] | [address] | [place] [address] | [phone] | | LABORATORY | [address] | | [...] | + + + + + | [facility] | [address] | [facility] [address] | | + + + + + Troponin I (05/28/2018 1:59 PM) + + + + + | Component | Value | Ref Range | Performed At | + + + + + | TROPONIN I | 0.037Comment: 0.04 | 0.00 - 0.04 ng/mL | [facility] | | | ng/mL [...] [facility];[address] | | | | | [facility];[place] [address] | | | + + + + + + + | Specimen | + + | Blood | + + + + + + + | Performing | Address | City/State/[facility] | Phone Number | | Organization | | | | + + + + + | [facility] | [address] | [place] [address] | | + + + + + [...] | | | | | performed at [facility], [address] | | | | | [facility], | | | | | [place] [address] | | | + + + + + + + | Specimen | + + | Blood | + + + + + + + | Performing | Address | City/State/Zipcode | Phone Number | | Organization | | | | + + + + + | [facility] | [address] | [place] [address] | [phone] | | LABORATORY | [address]vd[address] | | [...] performed at | | | | | [facility], [address] [facility] | | | | | [place] | | | | | [address] | | | + + + + + + + | Specimen | + + | Blood | + + + + + + + | Performing | Address | City/State/Zipcode | Phone Number | | Organization | | | | + + + + + | [facility] | [address] | [place] [address] | [phone] | | LABORATORY | [address]vd[address] | | [...] 4.3 | 3.5 - 4.9 mmol/L | [facility] | + + + [...] 3.6 | 3.6 - 5.0 g/dL | [facility] | + + + + + | PHOSPHORUS | 6.3 (H) | 2.3 - 4.8 mg/dL | [facility] | + + + + + | EGFR | 6 (L)Comment: GFR <60: | >60 mL/min/1.73m2 | [facility] | | | CHRONIC [...] the | | | | | MDRD [facility] traceable | | | | | equation.Testing | | | | | performed at [facility] | | | | | [facility];[place], [place] | | | | | [address] | | | + + + + + + + | Specimen | + + | Blood - Blood | + + + + + + + | Performing | Address | City/State/Zipcode | Phone Number | | Organization | | | | + + + + + | [facility] | [address] | [place] [address] | | + + + + + EKG STANDARD 12 LEAD (05/28/2018 11:58 AM) + + + + + | Component | Value | Ref Range | Performed At | + + + + + | Ventricular Rate | 75 | BPM | [facility] | + + + + + | Atrial Rate | 75 | BPM | [facility] | + + + + + | P-R Interval | 182 | ms | [facility] | + + + + [...] + + + + | Calculated P [place] | 24 | degrees | [facility] | + + + + + | Calculated R [place] | 24 | degrees | [facility] | + + + + + | Calculated T [place] | 103 | degrees | [facility] | + + + + + | Diagnosis | Normal sinus rhythmPoor | | [facility] | | | R - progressionAbnormal [...] | + + + + + | [facility] | [address] | [place] [address] | | + + + + + hCG, serum, qualitative (05/28/2018 9:23 AM) + + + + + | Component | Value | Ref Range | Performed At | + + + + + | TEST,SERUM | NEGATIVEComment: Testing | NEGATIVE | [facility] | | | performed at [facility], [address] | | LABORATORY | | | [address], | | | | | [place] [address] | | | + + + + + + + | Specimen | + + | Blood | + + + + + + + | Performing | Address | City/State/Zipcode | Phone Number | | Organization | | | | + + + + + | [facility] | [address] [place] [address] | [place] [address] | [phone] | | LABORATORY | [address]vd[address] | | | + + + + + C-reactive protein (05/28/2018 9:23 AM) + + + + + | Component | Value | Ref Range | Performed At | + + + + + | CRP | 5.1 (H)Comment: Testing | <0.5 mg/dL | [facility] | | | performed at [facility], [address] | | LABORATORY | | | [facility], | | | | | [place] [address] | | | + + + + + + + | Specimen | + + | Blood | + + + + + + + | Performing | Address | City/State/Zipcode | Phone Number | | Organization | | | | + + + + + | [facility] | [address] | [place] [address] | [phone] | | LABORATORY | [address]vd[address] | | | + + + + + Sedimentation rate, automated (05/28/2018 9:23 AM) + + + + + | Component | Value | Ref Range | Performed At | + + + + + | ESR | 2Comment: Testing | 0 - 20 mm/Hr | [facility] | | | performed at [facility], [address] | | LABORATORY | | | [address], | | | | | [place] [address] | | | + + + + + + + | Specimen | + + | Blood | + + + + + + + | Performing | Address | City/State/Zipcode | Phone Number | | Organization | | | | + + + + + | [facility] | [address] | [place] [address] | [phone] | | LABORATORY | [address]vd[address] | | | + + + + + TSH (05/28/2018 9:23 AM) + + + + + | Component | Value | Ref Range | Performed At | + + + + + | TSH | 1.270Comment: Testing | 0.450 - 5.100 uIU/mL | [facility] | | | performed at [facility], [address] | | LABORATORY | | | [facility], | | | | | [place] [address] | | | + + + + + + + | Specimen | + + | Blood | + + + + + + + | Performing | Address | City/State/Zipcode | Phone Number | | Organization | | | | + + + + + | [facility] | [address] | [place] [address] | [phone] | | LABORATORY | [address]vd[address] | | | + + + + + Troponin I (05/28/2018 9:23 AM) + + + + + | Component | Value | Ref Range | Performed At | + + + + + | TROPONIN I | 0.034Comment: 0.04 | 0.00 - 0.04 ng/mL | [facility] | | | ng/mL [...] [place];[address] | | | | | [address];[place] [address] | | | + + + + + + + | Specimen | + + | Blood | + + + + + + + | Performing | Address | City/State/Zipcode | Phone Number | | Organization | | | | + + + + + | [facility] | [address] | [place] [address] | | + + + + + [...] the | | | | | MDRD ID[facility] traceable | | | | | equation.Testing | | | | | performed at [facility], [address] | | | | | [facility], | | | | | [place] [address] | | | + + + + + + + | Specimen | + + | Blood | + + + + + + + | Performing | Address | City/State/Zipcode | Phone Number | | Organization | | | | + + + + + | [facility] | [address] | [place] [address] | [phone] | | LABORATORY | [address] | | [...] performed | | | | | at [facility], [address] | | | | | [facility], | | | | | [place] [address] | | | | |Testing performed at [facility], [address] [place] [address] | | | | | | | | + + + + + + + | Specimen | + + | Blood | + + + + + + + | Performing | Address | City/State/Zipcode | Phone Number | | Organization | | | | + + + + + | [facility] | [address] | [place] [address] | [phone] | | LABORATORY | [address]vd[address] | | | + + + + + Pathology cytology - fluid (05/28/2018 8:00 AM) + + | Specimen | + + | Body Fluid | + + + + + | Narrative | Performed At | + + + | ORDERING PHYSICIAN: Aneudy Hunter MD PATIENT NAME: [facility] | | DARA LOUISE GENDER: [...] PERFORMING LABORATORY: Technical preparation was performed by [employer] | | | [employer], [address] [place] [address] | | | (Switch Cleaner: Matt Claudio D.O.; CLIA#: [id number]). | | | Professional interpretation was performed by [employer], | | | [address] [address] | | | (Switch Cleaner: Daniel Larson M.D.; CLIA#: [id number]).6 | | | Diagnostician: Marie BROOKS ([facility]) Workplace Relations Adviser | | | Diagnostician: Anahy Da Silva [...] | + + + + + | [facility] | [address] | [place] [address] | [phone] | | LABORATORY | [address]vd[address] | | [...] performed at | | | | | [facility], [address] [facility] | | | | | [place] | | | | | [address] | | | + + + + + + + + + + | Performing | Address | City/State/Zipcode | Phone Number | | Organization | | | | + + + + + | [facility] | [address] | [place] [address] | [phone] | | LABORATORY | [address]vd[address] | | [...] valve is normal. 18. | | | Szfc-vg-qilsatgb eccentric mitral regurgitation is present. 19. | [...] DARA LOUISE Date of : 1995 | [facility] | | Performing Physician: Robel De [...] valve is normal. 18. | | | Nmbr-wm-iculgceo eccentric mitral regurgitation is present. 19. | [...] is | | | normal. Mitral Valve: Xdoe-xy-yovksuse eccentric mitral | | | regurgitation is [...] TR Vmax: 2.74 m/s | | | [employer] Scout: MW Authenticated by: Robel Yusuf MD Report | | | Date/Time: 05-27-2018 13:59:57 | | + + + + + | Procedure Note | + + | Sonido Steele Results In - 05/27/2018 2:00 PM PDT Patient Name: Anders LOUISE of | | : 1995Accession: [id number] Physician: Robel Yusuf | | MD INDICATIONS [...] aortic stenosis.17. The mitral valve is normal.18. Nyag-zv-xnythvrc | | eccentric mitral regurgitation is present.19. [...] | | arch are normal.26. No mass rcrdrcnoch60. No clot visualizedFINDINGS--------ECG rhythm: | | Sinus [...] The mitral valve is normal. Mitral Valve: Dfok-en-osodtfqd eccentric mitral | | regurgitation is present.Tricuspid [...] (A-L): 30.43 | | ml/m2LAAs A2C: 20.97 fj4REIZY A-L A2C: 65.71 mlLALs A2C: 5.68 cmLAAs A4C: 19.94 | | dy8UUXWM A-L A4C: 60.20 mlLALs A4C: 5.60 cmTAPSE: 1.58 cmHR: 79.62 BPMAV maxPG: | | 6.06 mmHgAV meanP.71 mmHgAV Vmax: 1.23 m/Elizabeth Vmean: 0.92 m/Elizabeth VTI: 20.07 | | cmAVA Vmax: 1.74 cm2AVA (VTI): 1.93 lh1NYBQ Vmax: 0.00 cm2/m2AVAI (VTI): 0.00 | | [...] The mitral valve is | | normal.18. Quvi-bi-vtueutvp eccentric mitral regurgitation is present.19. Severe | [...] and aortic arch are normal.26. No mass emtdwtbely89. No clot visualized | |LVIDd: 4.99 cm [...] |TR Vmax: 2.74 m/s | | | |[employer] Scout: MW | |Authenticated by: Robel Yusuf MD [...] The mitral valve is normal. | |18. Mrhb-vw-iavwqatc eccentric mitral regurgitation is present. | |19. [...] [facility] | [address] | [place] [address] | | + + + + + [...] | + + + + + | [facility] | [address] | [place] [address] | | + + + + + Brain natriuretic peptide (05/27/2018 4:25 AM) + + + + + | Component | Value | Ref Range | Performed At | + + + + + | BRAIN NATRIURETIC | 1,153.92 (H)Comment: | 0 - 100 pg/mL | [facility] | | PEPTIDE | Testing performed at | | | | | [facility];[address];[place] [address] | | | + + + + + + + | Specimen | + + | Blood | + + + + + + + | Performing | Address | City/State/Zipcode | Phone Number | | Organization | | | | + + + + + | [facility] | [address] | [facility] [place] [place] [address] | | + + + + + Phosphorus (05/27/2018 4:25 AM) + + + + + | Component | Value | Ref Range | Performed At | + + + + + | PHOSPHORUS | 8.0 (H)Comment: Testing | 2.3 - 4.8 mg/dL | [facility] | | | performed at [facility], [address] | LABORATORY | | | [address], | | | | | [place] [address] | | | + + + + + + + | Specimen | + + | Blood | + + + + + + + | Performing | Address | City/State/Zipcode | Phone Number | | Organization | | | | + + + + + | [facility] | [address] | [place] [address] | [phone] | | LABORATORY | Blvd. | | | + + + + + Magnesium (05/27/2018 4:25 AM) + + + + + | Component | Value | Ref Range | Performed At | + + + + + | MAGNESIUM | 2.7 (H)Comment: Testing | 1.7 - 2.4 mg/dL | [facility] | | | performed at [facility], [address] | | LABORATORY | | | [facility], | | | | | [place] [address] | | | + + + + + + + | Specimen | + + | Blood | + + + + + + + | Performing | Address | City/State/Zipcode | Phone Number | | Organization | | | | + + + + + | [facility] | [address] | [place] [address] | [phone] | | LABORATORY | Blvd. | | [...] + | BUN/CREAT | 6 | | [facility] | | | | | LABORATORY | + + + + + | CALCIUM | 9.4 | 8.5 - 10.5 mg/dL | [facility] | | | | | LABORATORY | + + + + + | EGFR | 5 (L)Comment: GFR <60: | >60 mL/min/1.73m2 | [facility] | | | CHRONIC KIDNEY DISEASE, | [...] | | | | | performed at [facility], [address] | | | | | [facility], | | | | | [place] [address] | | | + + + + + + + | Specimen | + + | Blood | + + + + + + + | Performing | Address | City/State/Zipcode | Phone Number | | Organization | | | | + + + + + | [facility] | [address] | [place] [address] | [phone] | | LABORATORY | Blvd[address] | | | + + + + + CBC w/auto diff (reflex to manual) (05/27/2018 4:25 AM) + + + + + | Component | Value | Ref Range | Performed At | + + + + + | WBC | 6.62 | 3.80 - 11.00 K/uL | [facility] | + + + + + | RBC | 3.48 (L) | 3.70 - 5.10 M/uL | [facility] | + + + + + | HGB | 12.5 | 11.3 - 15.5 g/dL | [facility] | + + + + + [...] | MPV | 9.9 | fl | [facility] | + + + + + | DIFF TYPE | AUTOMATED | | [facility] | + + + + + [...] | Platelet Estimate | DECREASEDComment: | | [facility] | | | Testing performed at | | | | | [facility];[address] | | | [address];[place] [address] | | | + + + + + + + | Specimen | + + | Blood | + + + + + + + | Performing | Address | City/State/Zipcode | Phone Number | | Organization | | | | + + + + + | [facility] | [address] | [place] [address] | | + + + + + MRSA by PCR (05/26/2018 6:06 PM) + + + + + | Component | Value | Ref Range | Performed At | + + + + + | SOURCE | NARES(NOSE) | | [facility] | + + + + + | MRSA PCR | NEGATIVEComment: Testing | NEGATIVE | [facility] | | | performed at [facility];[address] | | | | [address];[place], [place] | | | | | [address] | | | + + + + + + + | Specimen | + + | Nasopharyngeal - | | Nares(Nose) | + + + + + + + | Performing | Address | City/State/Zipcode | Phone Number | | Organization | | | | + + + + + | [facility] | [address] | [place] [address] | | + + + + + [...] | | | | | [facility], [address] | | | | | [place] | | | | | [address] | | | + + + + + + + | Specimen | + + | Nasopharynx/Orophary | | nx | + + + + + + + | Performing | Address | City/State/Zipcode | Phone Number | | Organization | | | | + + + + + | [facility] | [address] | [place] [address] | [phone] | | LABORATORY | Blvd. | | | + + + + + PROCALCITONIN (05/26/2018 5:27 PM) + + + + + | Component | Value | Ref Range | Performed At | + + + + + | PROCALCITONIN | 0.76 (H)Comment: | <0.5 ng/mL | [facility] | | | INTERPRETIVE [...] at [facility];[address] [place] [address] | | | | | [facility];[place] [address] | | | + + + + + + + + + + | Performing | Address | City/State/Zipcode | Phone Number | | Organization | | | | + + + + + | [facility] | [address] | [place] [address] | | + + + + + [...] | + + + + + | [facility] | [address] | [place] [address] | | + + + + + [...] | + + + + + | [facility] | [address] | [place] [address] | | + + + + + [...] STAIN | STAIN PERFORMED ON | | [facility] | | | CYTOSPIN | | | + + + + + | GRAM STAIN | WBC'S SEEN | | [facility] | + + + + + | GRAM STAIN | NO EPITHELIAL CELLS SEEN | | [facility] | + + + + + | GRAM STAIN | NO ORGANISMS SEEN | | [facility] | + + + [...] | + + + + + | [facility] | [address] | [place] [address] | [phone] | | LABORATORY | [address] | | | + + + + + | [facility] | [address] | [place] [address] | | + + + + + Pathologist consult (05/26/2018 2:12 PM) + + + + + | Component | Value | Ref Range | Performed At | + + + + + | Pathologist Consult | Comment: Review of | | [facility] | | | pleural [...] at [facility];[address] | | | | | [address];[place] [address] | | | + + + + + + + + + + | Performing | Address | City/State/Zipcode | Phone Number | | Organization | | | | + + + + + | [facility] | [address] | [facility] [address] | | + + + + + Total Protein, Body Fluid (05/26/2018 2:12 PM) + + + + + | Component | Value | Ref Range | Performed At | + + + + + | FLUID TOTAL PROTEIN | 4.2Comment: This is not | g/dL | [facility] | | | a reinforcing steel erector validated | | LABORATORY | | | sample type for this | | | | | method. No reference | | | | | ranges have been | | | | | established.Testing | | | | | performed at [facility], [address] | | | | | [facility], | | | | | [place] [address] | | | + + + + + | FLUID TP SOURCE | PLEURAL FLUIDComment: | | [facility] | | | Testing performed at | | | | | [facility];[address] | | [address];[place] [address] | | | + + + + + + + | Specimen | + + | Body Fluid - Lung, | | Right Lower Lobe | + + + + + + + | Performing | Address | City/State/Zipcode | Phone Number | | Organization | | | | + + + + + | [facility] | [address] | [place] [address] | | + + + + + | [facility] | [address] [place] [address] | [place] [address] | [phone] | | LABORATORY | Blvd[address] | | | + + + + + Albumin, Body Fluid (05/26/2018 2:12 PM) + + + + + | Component | Value | Ref Range | Performed At | + + + + + | FLUID ALBUMIN | 2.3Comment: This is not | g/dL | [facility] | | | a reinforcing steel erector validated | | LABORATORY | | | sample type for this | | | | | method. No reference | | | | | ranges have been | | | | | established.Testing | | | | | performed at [facility], [facility] [address] | | | | | [facility], | | | | | [place] [address] | | | + + + + + + + | Specimen | + + | Body Fluid - Lung, | | Right Lower Lobe | + + + + + + + | Performing | Address | City/State/Zipcode | Phone Number | | Organization | | | | + + + + + | [facility] | [address] | [place] [address] | [phone] | | LABORATORY | [address]vd[address] | | | + + + + + pH, Body Fluid (05/26/2018 2:12 PM) + + + + + | Component | Value | Ref Range | Performed At | + + + + + | FLUID PH | 7.45Comment: Testing | | [facility] | | | performed at [facility];[address] | | | | [address];[place] | | | | | [address] | | | + + + + + + + | Specimen | + + | Body Fluid - Lung, | | Right Lower Lobe | + + + + + + + | Performing | Address | City/State/Zipcode | Phone Number | | Organization | | | | + + + + + | [facility] | [address] | [place] [address] | | + + + + + [...] + + + | [facility] | [address] | [place] [address] | [phone] | | LABORATORY | [address]vd[address] | | | + + + + + Cell count, Body Fluid (05/26/2018 2:12 PM) + + + + + | Component | Value | Ref Range | Performed At | + + + + + | FLUID TYPE | PLEURAL FLUID | | [facility] | + + + + + | COLOR | SAMMIE | | [facility] | + + + + + | APPEARANCE | CLOUDY | | [facility] | + + + + + | RBC'S | 3,000Comment: CORRECTED | /mm3 | [facility] | | | RESULTS CALLED TO | | | | | ELSA IN ED AT 1705 | | | | | BY LGJCORRECTED ON 05/26 | | | | | AT 1702: PREVIOUSLY | | | | | REPORTED <[id number] | | | + + + + + | TOTAL NUCLEATED | 253Comment: CORRECTED | /mm3 | [facility] | | CELLS | RESULTS CALLED TO | | | | | LESA IN ED AT 1705 | | | [...] | MONOCYTES/MACROPHAGE | 65 | % | [facility] | | S | | | | + + + + + | Mesothelial Cells | 5 | % | [facility] | + + + + + | CELLS COUNTED | 100Comment: Testing | | [facility] | | | performed at [facility];[address] | | | | | [address];[place] | | | | | [address] | | | + + + + + + + | Specimen | + + | Body Fluid - Lung, | | Right Lower Lobe | + + + + + + + | Performing | Address | City/State/Zipcode | Phone Number | | Organization | | | | + + + + + | [facility] | [address] | [place] [address] | | + + + + + PROCALCITONIN (05/26/2018 12:14 PM) + + + + + | Component | Value | Ref Range | Performed At | + + + + + | PROCALCITONIN | 0.56 (H)Comment: | <0.5 ng/mL | [facility] | | | INTERPRETIVE [...] at [facility];[address] [place] [address] | | | | | [facility];[place] [address] | | | + + + + + + + + + + | Performing | Address | City/State/Zipcode | Phone Number | | Organization | | | | + + + + + | [facility] | [address] | [place] [address] | | + + + + + Brain natriuretic peptide (05/26/2018 12:14 PM) + + + + + | Component | Value | Ref Range | Performed At | + + + + + | BRAIN NATRIURETIC | 1,558.24 (H)Comment: | 0 - 100 pg/mL | [facility] | | PEPTIDE | Testing performed at | | | | | [facility];[address];[place] [address] | | | + + + + + + + + + + | Performing | Address | City/State/Zipcode | Phone Number | | Organization | | | | + + + + + | [facility] | [address] | [facility] [address] | | + + + + + [...] 12.1 | 11.3 - 15.5 g/dL | [facility] | + + + + + | HCT | 36.1 | 34.0 - 46.0 % | [facility] | + + + [...] | 0.1 - 1.5 mg/dL | [facility] | + + + + + | ALK PHOS | 120 (H) | 35 - 115 U/L | [facility] | + + + + + | AST | 82 (H) | 10 - 45 U/L | [facility] | + + + + + | ALT | 64 | 10 - 65 U/L | [facility] | + + + + + | EGFR | 6 (L)Comment: GFR <60: | >60 mL/min/1.73m2 | [facility] | | | CHRONIC [...] (H) | 30 - 240 U/L | [facility] | + + + + + | INR | 1.6Comment: REFERENCE | | [facility] | | | RANGE:0.9 [...] 29 | 23 - 32 seconds | [facility] | + + + + + | MMB | 7.8 (H) | 0.5 - 3.6 ng/mL | [facility] | + + + + + | CK-MB Index | 2.7Comment: CK INDEX | | [facility] | | | INTERPRETATION: [...] [place];[place] | | | | | [address] | | | + + + + + + + + + + | Performing | Address | City/State/Zipcode | Phone Number | | Organization | | | | + + + + + | [facility] | [address] | [place] [address] | | + + + + + [...] space: 4th Puncture | | | method: Rrga-rok-ktzpim catheter Ultrasound guidance: yes | | | [...] perforation, infection and | | | pain [place] protocol: Imaging studies available: yes | | [...] Performed At | + + + | [id number] Criteria Met 2 in 2 | ED [...] Count (12 mo.) Facility Visits [facility] | | | [facility] 1 0 [facility] 5 0 Total 6 0 | | | Note: Visits indicate total known visits. Medicaid Low Acuity Dx | | | are the number of primary diagnoses on the Medicaid's Low Acuity dx | | | list. Recent Emergency Department Visit Summary Date Facility | | | [facility] Type Diagnoses or Chief Complaint May 26, 2018 [facility] | | | [facility] [place] Emergency Chest pain, unspecified | | | May 26, [address] [facility] [place] Emergency Chief | | | Complaint: FLU SYMPTOMS May 25, 2018 [facility] [place] | | | Emergency Chief Complaint: SOB/COUGH May 10, 2018 [facility]. | | | [facility]. [...] | | | disease Feb 14, 2018 [facility] [place] Emergency | | | Functional dyspepsia Other ascites Epigastric pain | | | Allergy status to narcotic agent status Radiographic dye | | | allergy status Nicotine dependence, unspecified, uncomplicated | | | Other jail (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 Sep 16, 2017 [facility] | | | [place] Emergency Chronic kidney disease, | | | unspecified Dependence on renal dialysis Pain, | | | unspecified Allergy status to narcotic agent status | | | Nicotine dependence, unspecified, uncomplicated Other jail | | | (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 Elevated [...] Portal This patient has registered at the [facility] | | | [facility] Emergency Department For more information visit: | | | [email or web address] | | | [email or web address] PLEASE NOTE: [...] | | completeness of information provided. 2019 [employer] | | | [employer]. - [email or web address] | | + + + + + | Procedure Note | + + | Interface, Lab - 05/26/2018 12:00 PM PDT Formatting of this note may be different | | from the original.[id number] Met 2 in 2Security and | | SafetyNo recent Security Events currently on fileED Care GuidelinesThere are currently | | no ED Care Guidelines for this patient. Please check your facility's medical records | | system.Prescription Drug Report (12 Mo.)PDMP query found no report.E.D. Visit Count (12 | | mo.)Facility Visits Low Acuity [facility] 1 0 [facility] | | Hospital 5 0 Total 6 0 Note: Visits indicate total known visits. Medicaid Low Acuity Dx | | are the number of primary diagnoses on the Medicaid's Low Acuity dx list. Recent | | Emergency Department Visit SummaryDate Facility City State Type Diagnoses or Chief | | Complaint May 26, 2018 [facility] [place] Emergency Chest pain, | | unspecified May 26, 2018 [facility] [place] Emergency Chief Complaint: FLU | | SYMPTOMS May 25, 2018 [facility] [place] Emergency Chief Complaint: | | SOB/COUGH May 10, 2018 [facility] [place] Emergency Epistaxis Other long [...] stage renal disease Feb 14, 2018 [facility] [place] [facility] | | 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 Emergency Chronic kidney disease, unspecified | | Dependence on renal dialysis Pain, unspecified Allergy status to narcotic agent | | status Nicotine dependence, unspecified, uncomplicated Other jail (current) | | 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 Elevated blood-pressure [...] | Anupam patient has registered at the [facility] Emergency | | Department For more information visit: | | [email or web address] andnbsp | | PLEASE NOTE: 1. Any [...] or completeness of information | | provided.2019 [employer]. - [email or web address] | | Hypertensive heart and chronic kidney disease without heart failure, with stage 5 chroni c kidney disease, or end stage renal disease | | | |Feb 14, 2018 [facility] [place] Emergency | | Functional dyspepsia | | Other ascites | | Epigastric pain | | Allergy status to narcotic agent status | | Radiographic dye allergy status | | Nicotine dependence, unspecified, uncomplicated | | Other jail (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 | | | |Sep 16, 2017 [facility] 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 [...] of information provided. | | | |2019 [employer]. - [email or web address] | + + + +---------+ + + [...] | + + + + + | [facility] | [address] | [place] [address] | | + + + + + [...] 10 mLs | | | | 0.5% -1:[id number] injection 10 mL | Other | 9 [...] PDT | | | | | Dialysis, [facility] 05/27/18 at 1700, | | | | [...] | | | | | Dialysis, [facility] 05/30/18 at 0730, | | | | [...] PDT | | | | | Dialysis, [facility] 05/27/18 at 1700, | | | | [...] | | | Daily, [facility] | | PDT | | | [...] PRN, Prevent | | | clotting, Starting [facility] 05/30/18 at | | | 0654 | | + +---+ | | | + +---+ | sodium chloride 0.9 % bolus 100 | | | mL 100 mL, Intravenous, Every 5 | | | Min PRN, for cramps or | | | hypotension during dialysis., | | | Starting [facility] 05/28/18 at 1211, | | | DIALYSIS [...]
--- OUTSIDE RECORDS SUMMARY | ~2018-07-18 | XMS | Encounter Summary ---
Demographics + + + | Address | [address] | | | [place] [address] | + + + | Home Phone [...] Author | [facility] | + + + | Organization | [facility] | + + + | Address | Unknown | + + + | Phone | Unavailable | + + + Support + + + + + | Name | Relationship | Address | Phone | + + + + + | Cory Weldon | ECON | [address] | | | | | [place] [address] | | + + + + + | Thania Mallory | ECON | [address] | | | | | [place] [address] | | + + + + + | Deidra Weldon | ECON | [address] | | | | | [place] | | | | | [address] | | + + + + + Care Team Providers + +------+ + | Care Spool Worker Name | Role | Phone | [...] | Summary | | | | [address] [facility] | [facility] | | | | | Road [place], [place] | [place], [place] | | | | | [address] | [address] | | | | | [phone] | | | +--------+ + + + [...] [place] | | | | | | [address] | | | | | | [phone] | | | | | | | | +--------+ + + + + documented as of this encounter Visit Diagnoses Not on filedocumented in this encounter"
--- OUTSIDE RECORDS SUMMARY | ~2018-07-18 | XMS | Clinical Summary ---
Demographics + + + | Address | [address] | | | [place] [address] | + + + | Home Phone [...] | | | | | [place] [address] | | + + + + + | Thania Mallory | ECON | [address] | | | | | [place] [address] | | + + + + + | Deidra Weldon | ECON | [address] | | | | | [place] | | | | | [address] | | + + + + + Care Team Providers + +------+ + | Care Spray Pilot Name | Role | Phone | + +------+ + | Jonathan Alonso MD | PP | | + +------+ + Source Comments DANILO is fully live on both EpicCare Ambulatory and EpicCare InPatient.[facility] Allerg[facility] + + + + [...] Denise | | | | | | [place], [place] | | | | | | [address] | | | | | | [phone] | | | | | | | [...] | | | | | | | [address] | | + +--------+ +--------+ + +--------+ | SHIFT SUPERINTENDENT MEDICAID | SHIFT SUPERINTENDENT | xxxxxxxx | Effect | | | [...] | RENAL | | for | | [place], | | | | [place]IP[place] | | all | | [place] [address] | | | | ENT | | [...] | | al/Fam | | 1995 | [phone] | [address] [place] | | | [place] | | | 2 (Home) | [address] | | | | | | [phone] | | | | | | | 0 (Work) | | + +--------+ +--------+ + + | CORY ALVES | Wanderia | Mother | [birth year] | [address] | | | l | | 1899 | [phone] | [address] [place] | | | [place]isin | | | 2 (Home) | [address] | | | g | | | | | + +--------+ +--------+ + +
--- OUTSIDE RECORDS SUMMARY | ~2018-07-18 | XMS | Encounter Summary ---
Demographics + + + | Address | [address] | | | [place] [address] | + + + | Home Phone [...] | | | | | [place] [address] | | + + + + + | Thania Mallory | ECON | [address] | | | | | [place] [address] | | + + + + + | Deidra Louise | ECON | [address] | | | | | [place] | | | | | [address] | | + + + + + Care Team Providers + +------+ + | Care Sql Server Consultant Name | Role | Phone | [...] | | | (HCC) [facility] | Anil Elias | Anil Griffin | | | | | ([facility] | [address] | [address] | | | | | nlein | [place], [place] | Mailcode: | | | | | purpura) | [address] | DC7S | | | | | nephritis | Phone: | Dobarer | | | | | Hemodialysis | [phone] | [place], [place] | | | | | status | Fax: | [address] | | | | | (HCC) | [phone] | Phone: | | | | | Chronic | | [phone] | | | | | kidney | | Fax: | | | | | disease, | | [phone] | | | | | stage V [...] | Appointment | | | | [facility] | [facility] | | | | | Road [place], [place] | [place], [place] | | | | | [address] | [address] | | | | | [phone] | | | +--------+ + + + [...] Denise | | | | | | [place], [place] | | | | | | [address] | | | | | | [phone] | | | | | | | | +--------+ + + + + + +------+--------+ + + | Name | Type | Priori | Associated Diagnoses | Order Schedule | | | | ty | | | + +------+--------+ + + | 12 LEAD ECG | ECG | Routin | Allergic purpura- | Ordered: 01/07/2015 | | | | e | MEDICARE 2278 [facility] | | | | | | [...] | | | CARDIOLOGY | | | ([place] | | | | | | SCORE) | | | | | + +-------+ + + + | ASCENDING | -1.6 | | [facility] | | | [facility] | | | OF | | | DIAMETER | | | CARDIOLOGY | | | VS. BSA | | | | | | ([place] | | | | | | [...] Interface, Cardiology Results - 01/20/2015 2:35 PM [facility] Echocardiography Laboratory | | [address] | | [place] [address] | | ; | | [id number] | | | | Transthoracic Echocardiogram Report | | | | | | NAME: DARA LOUISE Study Date: 01/20/2015 1:18:29 PM | | Order #: [id number] [facility] #: [id number] | | | | | | : [...] on 01/20/2015 at 2:35:17 PM | | Atmospheric Physics Professor: YARITZA KLINE RD | | | | | | cc: | | | | | | Modes utilized | | TTE 49159; Spectral Doppler 52387; Color flow Doppler 72813; | | | | | | | | Final | + + + + + + + | Performing | Address | City/State/Zipcode | Phone Number | | Organization | | | | + + + + + | [facility] | [address] | [place], [place] | | | CARDIOLOGY | [address] | [address] | | + + + + + [...] | + + + + + | [facility] | [address] | [place] [address] | | | SERVICES, SPECIAL | [address] [...] + + + | TILA | [address] [facility] [address] | [place] [address] | | | DIAGNOSTIC | [address] [...] | | QUAL, SERUM | | | [facility] | | + + + + + + + + | Specimen | + + | Blood - Blood | + + + + + + + | Performing | Address | City/State/Zipcode | Phone Number | | Organization | | | | + + + + + | [facility] | [address] | [place] [address] | | | [place] | | | [...] + | [facility] | [address] | [place] [address] | | | [place] | | | [...] + | [facility] | [address] | [place] [address] | | | [place] | | | [...] + | [facility] | [address] | [place] [address] | | | [facility] | | | | + + + [...] by | | | | | | [address] | | | | | | Lorne Drew, [facility] | | | | | | [address] | | | | | | [phone].OMNIlife sciencelab. | | | | | | annalee, [...] [facility] | [address] | [place], [place] | | | UN[facility] P[facility] INT[facility] | | [address] | | + + + + + [...] | + + + + + | [facility] - | [address] | [place] [address] | | | [place] | | | [...] by | | | | | | [address] | | | | | | Lorne Rajendra, [facility] [place] [place] | | | | | | [address] | | | | | | [phone].OMNIlife sciencelab. | | | | | | Faisal [...] [facility] | [address] | [place], [place] | | | [facility] | | [address] | | + + + + + [...] [facility] | [address] | [place] [address] | | | SERVICES, CORE | PARK [...] | + + + + + | [facility] | [address] | [place] [address] | | | SERVICES, CORE | LONG [...] [facility] | [address] | [place] [address] | | | RIKY, CORE | PARK [...] [facility] | [address] | [place] [address] | | | SERVICES, CORE | PARK [...] | + + + + + | [facility] | [address] | [place] [address] | | | SERVICES, CORE | LONG [...] | | | LABORATORY | | | HONDURAN | | | SERVICES, | | | [...] | + + + + + | [facility] | [address] | [place] [address] | | | SERVICES, CORE | PARK [...]
--- OUTSIDE RECORDS SUMMARY | ~2018-07-18 | XMS | Encounter Summary ---
[...] | | | | | [place] [address] | | + + + + + | Thania Mallory | ECON | [address] | | | | | [place] [address] | | + + + + + | Deidra Weldon | ECON | [address] | | | | | [place] | | | | | [address] | | + + + + + Care Team Providers + +------+ + | Care Switchgear Repairer Name | Role | Phone | [...] SW | | | | [address] [facility] | [facility] | clinic visit - | | | | Road [place], [place] | [place], [place] | psychosocial | | | | [address] | [address] | readiness update) | | | | [phone] | | | +--------+ + + + [...] | | | | | | [place], [place] | | | | | | [address] | | | | | | [phone] | | | | | | | | +--------+ + + + + documented as of this encounter Visit Diagnoses Not on filedocumented in this encounter"
--- OUTSIDE RECORDS SUMMARY | ~2018-07-18 | XMS | Encounter Summary ---
Demographics + + + | Address | [address] | | | [place] [address] | + + + | Home Phone [...] | | | | | [place] [address] | | + + + + + | Thania Mallory | ECON | [address] | | | | | [place] [address] | | + + + + + | Deidra Weldon | ECON | [address] | | | | | [place] | | | | | [address] | | + + + + + Care Team Providers + +------+ + | Care Condominium Manager Name | Role | Phone | [...] | Update | | | | [facility] | [facility] | | | | | Road [place], [place] | [place], [place] | | | | | [address] | [address] | | | | | [phone] | | | +--------+ + + + [...] [place] | | | | | | [address] | | | | | | [phone] | | | | | | | | +--------+ + + + + documented as of this encounter Visit Diagnoses Not on filedocumented in this encounter"
--- OUTSIDE RECORDS SUMMARY | ~2018-07-18 | XMS | Encounter Summary ---
Demographics + + + | Address | [address] | | | [place] [address] | + + + | Home Phone [...] | | | | | [place] [address] | | + + + + + | Thania Mallory | ECON | [address] | | | | | [place] [address] | | + + + + + | Deidra Weldon | ECON | [address] | | | | | [place] | | | | | [address] | | + + + + + Care Team Providers + +------+ + | Care Laborer Wrecking And Salvaging Name | Role | Phone | + [...] (Immunizations) | | | | [address] [facility] | [facility] | | | | | Road [place], [place] | [place], [place] | | | | | [address] | [address] | | | | | [phone] | | | +--------+ + + + [...] | | | | | [place], [place] | | | | | | [address] | | | | | | [phone] | | | | | | | | +--------+ + + + + documented as of this encounter Visit Diagnoses Not on filedocumented in this encounter"
--- OUTSIDE RECORDS SUMMARY | ~2018-07-18 | XMS | Encounter Summary ---
Demographics + + + | Address | [address] | | | [place] [address] | + + + | Home Phone [...] | | | | | [place] [address] | | + + + + + | Thania Mallory | ECON | [address] | | | | | [place] [address] | | + + + + + | Deidra Weldon | ECON | [address] | | | | | [place] | | | | | [address] | | + + + + + Care Team Providers + +------+ + | Care Robotic Welder Name | Role | Phone | [...] | | | | | [place] | [facility] | | | | | [facility] | [place], [place] | | | | | [facility] [address] [facility] | [address] | | | | | [facility] | [phone] | | | | | Mailcode: DCH7 | | | | | | Alexander | | | | | | [place], [place] | | | | | | [address] | | | | | | [phone] | | | +--------+--------+ + + + [...] | | | | | | [place], [place] | | | | | | [address] | | | | | | [phone] | | | | | | | | +--------+ + + + + documented as of this encounter Visit Diagnoses Not on filedocumented in this encounter"
--- OUTSIDE RECORDS SUMMARY | ~2018-07-18 | XMS | Encounter Summary ---
Demographics + + + | Address | [address] | | | [place] [address] | + + + | Home Phone [...] | | | | | [place] [address] | | + + + + + | Thania Mallory | ECON | [address] | | | | | [place] [address] | | + + + + + | Deidra Weldon | ECON | [address] | | | | | [place] | | | | | [address] | | + + + + + Care Team Providers + +------+ + | Care Metal Or Wood Blocker Name | Role | Phone | [...] | | Jonathan Gallagher, | Sandra D[address] | | | | | | MD [address] | [address] | | | | | | Keven | Elias Eliz[address] | | | | | | [facility] | Road | | | | | | [address] | Mailcode: | | | | | | Keven Drew | DCH7 | | | | | | LEWIS | Alexander | | | | | | [place] | [place], [place] | | | | | | [address] | [address] | | | | | | Phone: | Phone: | | | | | | [phone] | [phone] | | | | | | Fax: | | | | | | | [phone] | | +--------+--------+ + + + + Encounter Details +--------+---------+ + + + | Date | Type | Department | Care Team | Description | +--------+---------+ + + + | 11/16/ | Office | Specialty Clinics | Sudhakar Joy | 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 [address] | MD Emanuel [address] | MEDICARE 8 | | | | [facility] | [facility] | (Primary Dx); [facility] | | | | Mailcode: [facility] | [place], [place] | ([place] | | | | Alexander | [address] | purpura) nephritis; | | | | [place], [place] | [phone] | Anemia of chronic | | | | [address] | | kidney failure, | | | | [phone] | Rtx, Pds [address] | unspecified stage | | | | | [address]un [facility] | | | | | | Road [place], [place] | | | | | | [address] | | +--------+---------+ + + + Social [...] soon. Have your friend call Brittney about [phone] Sudhakar Joy MD documented in this encounter [...] MD [facility]ph[facility] [address]; Mail code [facility] [place], [place] [address] documented in this encounter Plan of Treatment +--------+ + + + + | Date | Type | Specialty | Care Team | Description | +--------+ + + + + | 05/04/ | Hospital | Adult Acute Care | El Starr MD | | | 2022 | Encounter | | [address] | | | | | | [place], [place] | | | | | | [address] | | | | | | [phone] | | | | | | | [...]
--- OUTSIDE RECORDS SUMMARY | ~2018-07-18 | XMS | Encounter Summary ---
Demographics + + + | Address | [address] | | | [place] [address] | + + + | Home Phone [...] | | | | | [place] [address] | | + + + + + | Thania Mallory | ECON | [address] | | | | | [place] [address] | | + + + + + | Deidra Weldon | ECON | [address] | | | | | [place] | | | | | [address] | | + + + + + Care Team Providers + +------+ + | Care Preventive Maintenance Coordinator Name | Role | Phone | [...] Anil Griffin | | | | | ([address] | [address] | [address] | | | | | nlein | [place], [place] | Mailcode: | | | | | purpura) | [address] | DC7S | | | | | nephritis | Phone: | [place] | | | | | Hemodialysis | [phone] | [place], [place] | | | | | status | Fax: | [address] | | | | | (HCC) | [phone] | Phone: | | | | | Chronic | | [phone] | | | | | kidney | | Fax: | | | | | disease, | | [phone] | | | | | stage V [...] | | 2014 | Encounter | at [facility] [address] | | | | | | [address] | | | | | | Road Mailcode: | | | | | | DCH8S [place] | | | | | | [place], [place] | | | | | | [address] | | | | | | [phone] | | | +--------+ + + + [...] Denise | | | | | | [place], [place] | | | | | | [address] | | | | | | [phone] | | | | | | | [...] | e | 1:18 PM | MEDICARE 1327 [facility] | procedure are in the | [...] 2:35 PM PST Echocardiography Laboratory | | [address] | | [place] [address] | | ; | | [id number] | | | | Transthoracic Echocardiogram Report | | | | | | NAME: DARA WELDON Study Date: 01/20/2015 1:18:29 PM | | Order #: [id number] [facility] #: [id number] | | | | | | : [...] on 01/20/2015 at 2:35:17 PM | | Field Care Manager: YARITZA KLINE [facility] | | | | | | cc: | | | | | | Modes utilized | | TTE 18059; Spectral Doppler 42596; Color flow Doppler 72369; | | | | | | | | Final | + + + + + + + | Performing | Address | City/State/Zipcode | Phone Number | | Organization | | | | + + + + + | [facility] | [address] | [place], [place] | | | CARDIOLOGY | [address] | [address] | | + + + + + [...]
--- OUTSIDE RECORDS SUMMARY | ~2018-07-18 | XMS | Encounter Summary ---
Demographics + + + | Address | [address] | | | [place] [address] | + + + | Home Phone [...] | | | | | [place] [address] | | + + + + + | Thania Mallory | ECON | [address] | | | | | [place] [address] | | + + + + + | Deidra Weldon | ECON | [address] | | | | | [place] | | | | | [address] | | + + + + + Care Team Providers + +------+ + | Care Stitcher Operator Name | Role | Phone | + +------+ + | Shahid Camargo MD | PCP | Unavailable | + +------+ + Encounter Details +--------+ + + + + | Date | Type | Department | Care Team | Description | +--------+ + + + + | 12/20/ | Hospital | Radiology at [facility] | | | | 2012 | Encounter | [address] | | | | | | [facility] | | | | | | Mailcode: L340 | | | | | | [place] | | | | | | [place], [place] | | | | | | [address] | | | | | | [phone] | | | +--------+ + + + [...] Denise | | | | | | [place], [place] | | | | | | [address] | | | | | | [phone] | | | | | | | [...]
--- OUTSIDE RECORDS SUMMARY | ~2018-07-18 | XMS | Encounter Summary ---
Demographics + + + | Address | [address] | | | [place] [address] | + + + | Home Phone [...] + | Author | [facility] | | | and Josephana | + + + | Organization | [facility] | | | [...] Team Providers + +------+ + | Care Pool Nurse Name | Role | Phone | [...] | stage renal | [address] | [address] [place] [address] | | | | | disease) | [address] | Jaciel Gotti | | | | | (HCC) | [address] | [address] | | | | | Anemia in | [place], [place] | [place], [place] | | | | | ESRD | [address] | [address] Phone: | | | | | (end-stage | Phone: | [phone] | | | | | renal | [phone] | Fax: | | | | | disease) | Fax: | [phone] | | | | | ([facility]) | [phone] | | | | | | Procedures [...] | M, DO 301 | renal disease) ([facility]) | | | | [address] | [place], [place] [address] | (Primary Dx) | | | | [place] | [place] | | | | | [address] | [address] | | | | | [phone] | | | +--------+ + + + [...] Will recheck her in 2 weeks. : Hamer Fina Alonso MD, PhD documented in this e ncounter Plan of Treatment Not on filedocumented as of this encounter Visit Diagnoses + + | Diagnosis | + + | ESRD (end stage renal disease) (HCC) - Primary End stage renal disease | + + documented in this encounter"
--- OUTSIDE RECORDS SUMMARY | ~2018-07-18 | XMS | Encounter Summary ---
Demographics + + + | Address | [address] | | | [place] [address] | + + + | Home Phone [...] | | | | | [place] [address] | | + + + + + | Thania Mallory | ECON | [address] | | | | | [place] [address] | | + + + + + | Deidra Weldon | ECON | [address] | | | | | [place] | | | | | [address] | | + + + + + Care Team Providers + +------+ + | Care Bowling Ball Grader Name | Role | Phone | [...] | Nephrology at | MD Emanuel [address] [facility] | Requested (UDS) | | | | [place] | [facility] | | | | | [facility] | [place], [place] | | | | | [address] [facility] | [address] | | | | | [facility] | [phone] | | | | | Mailcode: DCH7 | | | | | | Alexander | | | | | | [place], [place] | | | | | | [address] | | | | | | [phone] | | | +--------+ + + + [...] Denise | | | | | | [place] | | | | | | [address] | | | | | | [phone] | | | | | | | | +--------+ + + + + documented as of this encounter Visit Diagnoses Not on filedocumented in this encounter"
--- OUTSIDE RECORDS SUMMARY | ~2018-07-18 | XMS | Encounter Summary ---
[...] | | | | | [place] [address] | | + + + + + | Thania Mallory | ECON | [address] | | | | | [place] [address] | | + + + + + | Deidra Weldon | ECON | [address] | | | | | [place] | | | | | [address] | | + + + + + Care Team Providers + +------+ + | Care Manager Plan Name | Role | Phone | + [...] | | Coordinators [address] MD [address] | | | | | [address] [facility] | [facility] | | | | | [place], [place] | [place], [place] | | | | | [address] | [address] | | | | | [phone] | [phone] | | | | | | | [...] Denise | | | | | | [place], [place] | | | | | | [address] | | | | | | [phone] | | | | | | | | +--------+ + + + + documented as of this encounter Visit Diagnoses Not on filedocumented in this encounter"
--- OUTSIDE RECORDS SUMMARY | ~2018-07-18 | XMS | Encounter Summary ---
Demographics + + + | Address | [address] | | | [place] [address] | + + + | Home Phone [...] | | | | | [place] [address] | | + + + + + | Thania Mallory | ECON | [address] | | | | | [place] [address] | | + + + + + | Deidra Weldon | ECON | [address] | | | | | [place] | | | | | [address] | | + + + + + Care Team Providers + +------+ + | Care Counter Roller Name | Role | Phone | [...] | | | | | [address] [facility] | [facility] | | | | | Road [place], [place] | [place], [place] | | | | | [address] | [address] | | | | | [phone] | | | +--------+ + + + [...] Denise | | | | | | [place], [place] | | | | | | [address] | | | | | | [phone] | | | | | | | | +--------+ + + + + documented as of this encounter Visit Diagnoses Not on filedocumented in this encounter"
--- OUTSIDE RECORDS SUMMARY | ~2018-07-18 | XMS | Encounter Summary ---
Demographics + + + | Address | [address] | | | [place] [address] | + + + | Home Phone [...] | | | | | [place] [address] | | + + + + + | Thania Mallory | ECON | [address] | | | | | [place] [address] | | + + + + + | Deidra Weldon | ECON | [address] | | | | | [place] | | | | | [address] | | + + + + + Care Team Providers + +------+ + | Care Limb Driver Name | Role | Phone | [...] | | | | | Alexander | [facility] | | | | | [facility] | [place], [place] | | | | | [facility] | [address] | | | | | [facility] | [phone] | | | | | Mailcode: DCH7 | | | | | | Alexander | | | | | | [place], [place] | | | | | | [address] | | | | | | [phone] | | | +--------+ + + + [...] Denise | | | | | | [place] | | | | | | [address] | | | | | | [phone] | | | | | | | | +--------+ + + + + documented as of this encounter Visit Diagnoses Not on filedocumented in this encounter"
--- OUTSIDE RECORDS SUMMARY | ~2018-07-18 | XMS | Encounter Summary ---
Demographics + + + | Address | [address] | | | [place] [address] | + + + | Home Phone [...] | | | | | [place] [address] | | + + + + + | Thania Mallory | ECON | [address] | | | | | [place] [address] | | + + + + + | Deidra Weldon | ECON | [address] | | | | | [place] | | | | | [address] | | + + + + + Care Team Providers + +------+ + | Care Operations Plant Attendant Name | Role | Phone | [...] [address] | RN [address] [facility] | | | | | [facility] | [facility] | | | | | Road [place], [place] | [place], [place] | | | | | [address] | [address] | | | | | [phone] | | | +--------+ + + + [...] | | | | | | [place], [place] | | | | | | [address] | | | | | | [phone] | | | | | | | | +--------+ + + + + documented as of this encounter Visit Diagnoses Not on filedocumented in this encounter"
--- OUTSIDE RECORDS SUMMARY | ~2018-07-18 | XMS | Encounter Summary ---
Demographics + + + | Address | [address] | | | [place] [address] | + + + | Home Phone [...] | | | | | [place] [address] | | + + + + + | Thania Mallory | ECON | [address] | | | | | [place] [address] | | + + + + + | Deidra Weldon | ECON | [address] | | | | | [place] | | | | | [address] | | + + + + + Care Team Providers + +------+ + | Care Vice President Sales Name | Role | Phone | [...] with SSA) | | | | Road [place], [place] | [place], [place] | | | | | [address] | [address] | | | | | [phone] | | | +--------+ + + + [...] | | | | | | [place] | | | | | | [address] | | | | | | [phone] | | | | | | | | +--------+ + + + + documented as of this encounter Visit Diagnoses Not on filedocumented in this encounter"
--- OUTSIDE RECORDS SUMMARY | ~2018-07-18 | XMS | Encounter Summary ---
Demographics + + + | Address | [address] | | | [place] [address] | + + + | Home Phone [...] | | | | | [place] [address] | | + + + + + | Thania Mallory | ECON | [address] | | | | | [place] [address] | | + + + + + | Deidra Weldon | ECON | [address] | | | | | [place] | | | | | [address] | | + + + + + Care Team Providers + +------+ + | Care Hand Brush Filler Name | Role | Phone | [...] [address] | RN [address] [facility] | Committee | | | | [facility] | [facility] | recommendations) | | | | Road [place], [place] | [place], [place] | | | | | [address] | [address] | | | | | [phone] | | | +--------+ + + + [...] Denise | | | | | | [place], [place] | | | | | | [address] | | | | | | [phone] | | | | | | | | +--------+ + + + + documented as of this encounter Visit Diagnoses Not on filedocumented in this encounter"
--- OUTSIDE RECORDS SUMMARY | ~2018-07-18 | XMS | Encounter Summary ---
Demographics + + + | Address | [address] | | | [place] [address] | + + + | Home Phone [...] | | | | | [place] [address] | | + + + + + | Thania Mallory | ECON | [address] | | | | | [place] [address] | | + + + + + | Deidra Weldon | ECON | [address] | | | | | [place] | | | | | [address] | | + + + + + Care Team Providers + +------+ + | Care Track Broom Operator Name | Role | Phone | [...] S | [address] | Update (Dialysis | | | | [address] | [address] | unit updated) | | | | Road [place], [place] | [place], [place] | | | | | [address] | [address] | | | | | [phone] | [phone] | | | | | | | [...] Denise | | | | | | [address] [place] | | | | | | [address] | | | | | | [phone] | | | | | | | | +--------+ + + + + documented as of this encounter Visit Diagnoses Not on filedocumented in this encounter"
--- OUTSIDE RECORDS SUMMARY | ~2018-07-18 | XMS | Encounter Summary ---
Demographics + + + | Address | [address] | | | [place] [address] | + + + | Home Phone [...] | | | | | [place] [address] | | + + + + + | Thania Mallory | ECON | [address] | | | | | [place] [address] | | + + + + + | Deidra Weldon | ECON | [address] | | | | | [place] | | | | | [address] | | + + + + + Care Team Providers + +------+ + | Care Oil Well Pumper Name | Role | Phone | [...] | Coordinators [address] | Emanuel, [address] [facility] | Update (Evaluation | | | | [address] | [facility] [address] | Scheduled) | | | | Road [place], [place] | [place], [place] | | | | | [address] | [address] | | | | | [phone] | [phone] | | | | | | | [...] Dneise | | | | | | [place] | | | | | | [address] | | | | | | [phone] | | | | | | | | +--------+ + + + + documented as of this encounter Visit Diagnoses Not on filedocumented in this encounter"
--- OUTSIDE RECORDS SUMMARY | ~2018-07-18 | XMS | Encounter Summary ---
Demographics + + + | Address | [address] | | | [place] [address] | + + + | Home Phone [...] | | | | | [place] [address] | | + + + + + | Thania Mallory | ECON | [address] | | | | | [place] [address] | | + + + + + | Deidra Weldon | ECON | [address] | | | | | [place] | | | | | [address] | | + + + + + Care Team Providers + +------+ + | Care Health Administrator Name | Role | Phone [...] | Update | | | | [facility] | [facility] | | | | | Road [place], [place] | [place], [place] | | | | | [address] | [address] | | | | | [phone] | | | +--------+ + + + [...] [place] | | | | | | [address] | | | | | | [phone] | | | | | | | | +--------+ + + + + documented as of this encounter Visit Diagnoses Not on filedocumented in this encounter"
--- OUTSIDE RECORDS SUMMARY | ~2018-07-18 | XMS | Encounter Summary ---
Demographics + + + | Address | [address] | | | [place] [address] | + + + | Home Phone [...] | | | | | [place] [address] | | + + + + + | Thania Mallory | ECON | [address] | | | | | [place] [address] | | + + + + + | Deidra Weldon | ECON | [address] | | | | | [place] | | | | | [address] | | + + + + + Care Team Providers + +------+ + | Care Barrel Marker Name | Role | Phone | [...] [address] | RN [address] [facility] | | | | | [facility] | [facility] | | | | | Road [place], [place] | [place], [place] | | | | | [address] | [address] | | | | | [phone] | | | +--------+ + + + [...] | | | | | | [place] | | | | | | [address] | | | | | | [phone] | | | | | | | | +--------+ + + + + documented as of this encounter Visit Diagnoses Not on filedocumented in this encounter"
--- OUTSIDE RECORDS SUMMARY | ~2018-07-18 | XMS | Encounter Summary ---
Demographics + + + | Address | [address] | | | [place] [address] | + + + | Home Phone [...] | | | | | [place] [address] | | + + + + + | Thania Mallory | ECON | [address] | | | | | [place] [address] | | + + + + + | Deidra Weldon | ECON | [address] | | | | | [place] | | | | | [address] | | + + + + + Care Team Providers + +------+ + | Care Chief Dietitian Name | Role | Phone | + [...] | | | | Yrn Eliz[place] | [facility] | check-in on pt's | | | | Road [place], [place] | [place], [place] | support plan & | | | | [address] | [address] | social changes) | | | | [phone] | | | +--------+ + + + [...] Denise | | | | | | [place], [place] | | | | | | [address] | | | | | | [phone] | | | | | | | | +--------+ + + + + documented as of this encounter Visit Diagnoses Not on filedocumented in this encounter"
--- OUTSIDE RECORDS SUMMARY | ~2018-07-18 | XMS | Encounter Summary ---
Demographics + + + | Address | [address] | | | [place] [address] | + + + | Home Phone [...] | | | | | [place] [address] | | + + + + + | Thania Mallory | ECON | [address] | | | | | [place] [address] | | + + + + + | Deidra Weldon | ECON | [address] | | | | | [place] | | | | | [address] | | + + + + + Care Team Providers + +------+ + | Care Database Marketing Analyst Name | Role | Phone [...] | | [address] | [facility] | | | | | [place] [address] | [place] [address] | | | | | | [phone] | | | | | | | [...] from patient and her family Pharmacy Preferences: [id number] [address] [place] [address] Updated Outpatient Medications: Current Medication List Name [...] questions regarding this information contact pharmacy, pager #[phone] Thank you, Juan David Batres Pager [phone] signed by Juan David Batres PharmD at [...] | | | | | | [place], [place] | | | | | | [address] | | | | | | [phone] | | | | | | | | +--------+ + + + + documented as of this encounter Visit Diagnoses Not on filedocumented in this encounter"
--- OUTSIDE RECORDS SUMMARY | ~2018-07-18 | XMS | Encounter Summary ---
Demographics + + + | Address | [address] | | | [place] [address] | + + + | Home Phone [...] | | | | | [place] [address] | | + + + + + | Thania Mallory | ECON | [address] | | | | | [place] [address] | | + + + + + | Deidra Weldon | ECON | [address] | | | | | [place] | | | | | [address] | | + + + + + Care Team Providers + +------+ + | Care Computed Tomography Technician Name | Role | Phone | [...] Requested | | | | [place] | [facility] | | | | | [facility] | [place], [place] | | | | | [address] | [address] | | | | | [facility] | | | | | | Mailcode: DCH7 | | | | | | [place] | | | | | | [place], [place] | | | | | | [address] | | | | | | [phone] | | | +--------+ + + + [...] | | | | | | [place] | | | | | | [address] | | | | | | [phone] | | | | | | | | +--------+ + + + + documented as of this encounter Visit Diagnoses Not on filedocumented in this encounter"
--- OUTSIDE RECORDS SUMMARY | ~2018-07-18 | XMS | Encounter Summary ---
Demographics + + + | Address | [address] | | | [place] [address] | + + + | Home Phone [...] | | | | | [place] [address] | | + + + + + | Thania Mallory | ECON | [address] | | | | | [place] [address] | | + + + + + | Deidra Weldon | ECON | [address] | | | | | [place] | | | | | [address] | | + + + + + Care Team Providers + +------+ + | Care Expert Medical Writer Name | Role | Phone | [...] unit updated) | | | | Road [place], [place] | [place], [place] | | | | | [address] | [address] | | | | | [phone] | [phone] | | | | | | | [...] Denise | | | | | | [place] | | | | | | [address] | | | | | | [phone] | | | | | | | | +--------+ + + + + documented as of this encounter Visit Diagnoses Not on filedocumented in this encounter"
--- OUTSIDE RECORDS SUMMARY | ~2018-07-18 | XMS | Encounter Summary ---
Demographics + + + | Address | [address] | | | [place] [address] | + + + | Home Phone [...] + + + | Author | [facility] | + + + | Organization | [facility] | + + + | Address | Unknown | + + + | Phone | Unavailable | + + + Support + + + + + | Name | Relationship | Address | Phone | + + + + + | Cory Weldon | ECON | [address] | | | | | [place] [address] | | + + + + + | Thania Mallory | ECON | [address] | | | | | [place] [address] | | + + + + + | Deidra Weldon | ECON | [address] | | | | | [place] | | | | | [address] | | + + + + + Care Team Providers + +------+ + | Care Psych Sales Specialist Name | Role | Phone [...] Family sheet & | | | | [facility] | [facility] [address] | crossmatch report) | | | | Mailcode: [id number] | [place], [place] | | | | | Physicians [address] | [address] | | | | | [address] [place], | [phone] | | | | | [place] [address] | | | | | | [phone] | | | +--------+ + + + [...] [place] | | | | | | [address] | | | | | | [phone] | | | | | | | | +--------+ + + + + documented as of this encounter Visit Diagnoses Not on filedocumented in this encounter"
--- OUTSIDE RECORDS SUMMARY | ~2018-07-18 | XMS | Encounter Summary ---
Demographics + + + | Address | [address] | | | [place] [address] | + + + | Home Phone [...] | | | | | [place] [address] | | + + + + + | Thania Mallory | ECON | [address] | | | | | [place] [address] | | + + + + + | Deidra Weldon | ECON | [address] | | | | | [place] | | | | | [address] | | + + + + + Care Team Providers + +------+ + | Care Baseball Glove Stuffer Name | Role | Phone | + [...] [place], | | | | | [facility] | [place] [address] | | | | | [place], [place] | [phone] | | | | | [address] | | | +--------+ + + + [...] Denise | | | | | | [place], [place] | | | | | | [address] | | | | | | [phone] | | | | | | | [...] [facility] - | [address] | [place] [address] | | | IMMUNOGENETICS/TRANS | [address] | | | | [facility] | | | | + + + + + documented in this encounter Visit Diagnoses Not on filedocumented in this encounter"
--- OUTSIDE RECORDS SUMMARY | ~2018-07-18 | XMS | Encounter Summary ---
Demographics + + + | Address | [address] [place] [address] | | | [place] [address] | + + + | Home Phone [...] | | | | | [place] [address] | | + + + + + | Thania Mallory | ECON | [address] | | | | | [place] [address] | | + + + + + | Deidra Weldon | ECON | [address] | | | | | [place] | | | | | [address] | | + + + + + Care Team Providers + +------+ + | Care Sports Medicine Coordinator Name | Role | Phone | [...] (psychosocial update | | | | Road [place], [place] | [place], [place] | from pt's mom) | | | | [address] | [address] | | | | | [phone] | | | +--------+ + + + [...] [place] | | | | | | [address] | | | | | | [phone] | | | | | | | | +--------+ + + + + documented as of this encounter Visit Diagnoses Not on filedocumented in this encounter"
--- OUTSIDE RECORDS SUMMARY | ~2018-07-18 | XMS | Encounter Summary ---
Demographics + + + | Address | [address] | | | [place] [address] | + + + | Home Phone [...] | | | | | [place] [address] | | + + + + + | Thania Mallory | ECON | [address] | | | | | [place] [address] | | + + + + + | Deidra Weldon | ECON | [address] | | | | | [place] | | | | | [address] | | + + + + + Care Team Providers + +------+ + | Care Furniture Cleaner Name | Role | Phone | [...] SW | | | | [address]rn [facility] | Elias Caro Chan | attempt(s) to | | | | Road [place], [place] | [place], [place] | contact pt re move | | | | [address] | [address] | and new PAF as | | | | [phone] | | listed) | +--------+ + + [...] Denise | | | | | | [place], [place] | | | | | | [address] | | | | | | [phone] | | | | | | | | +--------+ + + + + documented as of this encounter Visit Diagnoses Not on filedocumented in this encounter"
--- OUTSIDE RECORDS SUMMARY | ~2018-07-18 | XMS | Encounter Summary ---
Demographics + + + | Address | [address] | | | [place] [address] | + + + | Home Phone [...] | | | | | [place] [address] | | + + + + + | Thania Mallory | ECON | [address] | | | | | [place] [address] | | + + + + + | Deidra Weldon | ECON | [address] | | | | | [place] | | | | | [address] | | + + + + + Care Team Providers + +------+ + | Care Coffee Maker Name | Role | Phone | + +------+ + | Jonathan Alonso MD | PCP | | + +------+ + Encounter Details +--------+------+ + + + | Date | Type | Department | Care Team | Description | +--------+------+ + + + | 01/20/ | Lab | Lab Center at [facility] | | 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 [address] | | MEDICARE 2728; [facility] | | | | [facility] | | ([place] | | | | Road [place], [place]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; | | | | [address] | | Hemodialysis status | | | | [phone] | | ([facility]); Chronic | | | | | | kidney disease, | | | | | | stage V ([facility]) | +--------+------+ + + + [...] [place] | | | | | | [address] | | | | | | [phone] | | | | | | | [...] | e | 9:59 AM | MEDICARE 9810 [facility] | procedure are in the | [...] V ([facility]) | | + +--------+ + [...] V ([facility]) | | + +--------+ + [...] V ([facility]) | | + +--------+ + [...] V ([facility]) | | + +--------+ + [...] V ([facility]) | | + +--------+ + + + | HIV-1,2 AB/HIV-1 P24 | Routin | 01/20/2015 | Allergic purpura- | Results for this | | AG SCRN | e | 9:59 AM | MEDICARE 2728 [facility] | procedure are in the | | | | PST | ([facility] | results section. | | | | [...] | | | PST | ([facility] | results section. | | | | [...] the | | | | PST | ([facility] | results section. | | [...] | | | | PST | ([facility] | results section. | | | [...] the | | | | PST | ([facility] | results section. | | [...] | | | PST | ([facility] | results section. | | | | [...] the | | | | PST | ([facility] | results section. | | | [...] | | | PST | ([facility] | results section. | | | | [...] + | [facility] - | [address] | [place] [address] | | | [place] | | | | + + + [...] + | [facility] | [address] | [place] [address] | | | SERVICES, CORE | PARK [...] [facility] | [address] | [place] [address] | | | SERVICES, SPECIAL | PARK [...] | [facility] | [address], | [place] [address] | | | DIAGNOSTIC | [address] [...] + | [facility] - | [address] | [place] [address] | | | [place] | | | [...] + | [facility] | [address] | [place] [address] | | | [place] | | | | + + + [...] + | [facility] | [address] | [place] [address] | | | [place] | | | [...] | + + + + + | [facility] - | [address] | [place] [address] | | | [place] | | | [...] by | | | | | | [address] | | | | | | Pippa Sauceda, [facility],[place] | | | | | | [address] | | | | | | [phone].[employer]alab. | | | | | | Faisal [...] [facility] | [address] | [place], [place] | | | UN[facility] | | [address] | | + + + + + [...] + | [facility] - | [address] | [place] [address] | | | [place] | | | | + + + [...] by | | | | | | [facility],[address] | | | | | | [place] | | | | | | [address] | | | | | | [phone].Followaplab. | | | | | | Faisal [...] [facility] | [address] | [place], [place] | | | [facility] | | [address] | | + + + + + [...] [facility] | [address] | [place] [address] | | | SERVICES, CORE | PARK [...] [facility] | [address] | [place] [address] | | | SERVICES, CORE | PARK [...] [facility] | [address] | [place] [address] | | | [place] | LONG [...] [facility] | [address] | [place] [address] | | | SERVICES, CORE | PARK [...] + + | [facility] | [address] | [place] [address] | | | SERVICES, [facility] | [address] | | [...] | | | LABORATORY | | | [place] | | | SERVICES, | | | [...] | + + + + + | [facility] | [address] | [place] [address] | | | SERVICES, CORE | LONG [...]
--- OUTSIDE RECORDS SUMMARY | ~2018-07-18 | XMS | Encounter Summary ---
Demographics + + + | Address | [address] | | | [place] [address] | + + + | Home Phone [...] | | | | | [place] [address] | | + + + + + | Thania Mallory | ECON | [address] | | | | | [place] [address] | | + + + + + | Deidra Weldon | ECON | [address] | | | | | [place] | | | | | [address] | | + + + + + Care Team Providers + +------+ + | Care Optometric Coordinator Name | Role | Phone | [...] [place] | | | | | [facility] | [facility] | | | | | Road [place], [place] | [place], [place] | | | | | [address] | [address] | | | | | [phone] | | | +--------+ + + + [...] Denise | | | | | | [place] | | | | | | [address] | | | | | | [phone] | | | | | | | | +--------+ + + + + documented as of this encounter Visit Diagnoses Not on filedocumented in this encounter"
--- OUTSIDE RECORDS SUMMARY | ~2018-07-18 | XMS | Encounter Summary ---
Demographics + + + | Address | [address] | | | [place] [address] | + + + | Home Phone [...] + + + | Author | [employer] | + + + | Organization | [facility] | + + [...] Providers + +------+ + | Care Line Supervisor Name | Role | Phone [...] | 2019 | on Only | [facility] [place] | | Labs 06/20/2018) | | | | [address] | | | | | | [address] | | | | | | [place] [address] | | | | | | [phone] | | | +--------+ + + + [...] | | | | | | [place] [address] | | | | | | [phone] | | | | | | | | +--------+---------+ + + + as of this encounter Visit Diagnoses Not on filein this encounter"
--- OUTSIDE RECORDS SUMMARY | ~2018-07-18 | XMS | Encounter Summary ---
Demographics + + + | Address | [address] | | | [place] [address] [...] | Author | [facility] | | | and Josephana | + + + | Organization | [facility] [place] [facility] [...] Team Providers + +------+ + | Care Bisque Tile Burner Name | Role | Phone | [...] | | KIDNEY TRANSPLANT | [address], | | | | | [address] [facility] [address] | | | | | [address] [place] | [phone] | | | | | [address] | | | | | | [phone] | | | +--------+ + + + [...] documented as of this encounter Progress Notes DeanneRroo bennett Brigitte - 07/03/2018 1512 PDTReferral We [...] I also called the Fina Sparrow social sciences department chair, and let her know t hat Dara can be re-referred after she has her marijuana medicinal card. Electronically sig carlos by Roro Myles at 07/03/2018 15:17 PDTdocumented in this encounter Plan of Treatment Not on filedocumented as of this encounter Visit Diagnoses Not on filedocumented in this encounter"
--- OUTSIDE RECORDS SUMMARY | ~2018-07-18 | XMS | Encounter Summary ---
Demographics + + + | Address | [address] | | | [place] [address] | + + + | Home Phone [...] | | | | | [place] [address] | | + + + + + | Thania Mallory | ECON | [address] | | | | | [place] [address] | | + + + + + | Deidra Weldon | ECON | [address] | | | | | [place] | | | | | [address] | | + + + + + Care Team Providers + +------+ + | Care Film Color Tester Name | Role | Phone | [...] | | | | | [address] [facility] | [facility] | | | | | Road [place], [place] | [place], [place] | | | | | [address] | [address] | | | | | [phone] | | | +--------+ + + + [...] Denise | | | | | | [place], [place] | | | | | | [address] | | | | | | [phone] | | | | | | | | +--------+ + + + + documented as of this encounter Visit Diagnoses Not on filedocumented in this encounter"
--- OUTSIDE RECORDS SUMMARY | ~2018-07-18 | XMS | Encounter Summary ---
Demographics + + + | Address | [address] | | | [place] [address] | + + + | Home Phone [...] | | | | | [place] [address] | | + + + + + | Thania Mallory | ECON | [address] | | | | | [place] [address] | | + + + + + | Deidra Weldon | ECON | [address] | | | | | [place] | | | | | [address] | | + + + + + Care Team Providers + +------+ + | Care Cell Repairer Name | Role | Phone | [...] | | [address] | [facility], | | | | | [facility] | [place] [address] | | | | | [place], [place] | [phone] | | | | | [address] | | | +--------+ + + + [...] Denise | | | | | | [place], [place] | | | | | | [address] | | | | | | [phone] | | | | | | | [...] [facility] - | [address] | [place] [address] | | | IMMUNOGENETICS/TRANS | [address] | | | | [facility] | | | | + + + + + documented in this encounter Visit Diagnoses Not on filedocumented in this encounter"
--- OUTSIDE RECORDS SUMMARY | ~2018-07-18 | XMS | Encounter Summary ---
Demographics + + + | Address | [address] | | | [place] [address] | + + + | Home Phone [...] | | | | | [place] [address] | | + + + + + | Thania Mallory | ECON | [address] | | | | | [place] [address] | | + + + + + | Deidra Weldon | ECON | [address] | | | | | [place] | | | | | [address] | | + + + + + Care Team Providers + +------+ + | Care Epic Manager Name | Role | Phone | [...] Hospital | | | | | [facility] | [place], [place] | | | | | [facility] | [address] | | | | | [facility] | [phone] | | | | | Mailcode: DCH7 | | | | | | [place] | | | | | | [place], [place] | | | | | | [address] | | | | | | [phone] | | | +--------+ + + + [...] | | | | | | [place] | | | | | | [address] | | | | | | [phone] | | | | | | | | +--------+ + + + + documented as of this encounter Visit Diagnoses Not on filedocumented in this encounter"
--- OUTSIDE RECORDS SUMMARY | ~2018-07-18 | XMS | Encounter Summary ---
Demographics + + + | Address | [address] | | | [place] [address] | + + + | Home Phone [...] | | | | | [place] [address] | | + + + + + | Thania Mallory | ECON | [address] | | | | | [place] [address] | | + + + + + | Deidra Wedlon | ECON | [address] | | | | | [place] | | | | | [address] | | + + + + + Care Team Providers + +------+ + | Care Rehab Nurse Name | Role | Phone | [...] Update | | | | [address] [facility] | [facility] | | | | | Road [place], [place] | [place], [place] | | | | | [address] | [address] | | | | | [phone] | | | +--------+ + + + [...] Denise | | | | | | [place], [place] | | | | | | [address] | | | | | | [phone] | | | | | | | | +--------+ + + + + documented as of this encounter Visit Diagnoses Not on filedocumented in this encounter"
--- OUTSIDE RECORDS SUMMARY | ~2018-07-18 | XMS | Encounter Summary ---
Demographics + + + | Address | [address] | | | [place] [address] | + + + | Home Phone [...] | | | | | [place] [address] | | + + + + + | Thania Mallory | ECON | [address] | | | | | [place] [address] | | + + + + + | Deidra Weldon | ECON | [address] | | | | | [place] | | | | | [address] | | + + + + + Care Team Providers + +------+ + | Care 3D Specialist Name | Role | Phone | [...] [place] | | | | | | [facility] | | | | | | [place], [place] | | | | | | [address] | | | +--------+ + + + [...] Denise | | | | | | [place], [place] | | | | | | [address] | | | | | | [phone] | | | | | | | [...] [facility] - | [address], | [place] [address] | | | IMMUNOGENETICS/TRANS | [address] | | | | [facility] LAB[facility] | | | | + + + + + documented in this encounter Visit Diagnoses Not on filedocumented in this encounter"
--- OUTSIDE RECORDS SUMMARY | ~2018-07-18 | XMS | Encounter Summary ---
[...] | | | | | [place] [address] | | + + + + + | Thania Mallory | ECON | [address] | | | | | [place] [address] | | + + + + + | Deidra Weldon | ECON | [address] | | | | | [place] | | | | | [address] | | + + + + + Care Team Providers + +------+ + | Care Scroll Shear Operator Name | Role | Phone | [...] questions) | | | | [facility] | [facility] | | | | | Road [place], [place] | [place], [place] | | | | | [address] | [address] | | | | | [phone] | | | +--------+ + + + [...] Denise | | | | | | [place], [place] | | | | | | [address] | | | | | | [phone] | | | | | | | | +--------+ + + + + documented as of this encounter Visit Diagnoses Not on filedocumented in this encounter"
--- OUTSIDE RECORDS SUMMARY | ~2018-07-18 | XMS | Encounter Summary ---
Demographics + + + | Address | [address] | | | [place] [address] | + + + | Home Phone [...] | | | | | [place] [address] | | + + + + + | Thania Mallory | ECON | [address] | | | | | [place] [address] | | + + + + + | Deidra Weldon | ECON | [address] | | | | | [place] | | | | | [address] | | + + + + + Care Team Providers + +------+ + | Care Yield Clerk Name | Role | Phone | [...] | Update | | | | [facility] | [facility] | | | | | Road [place], [place] | [place] | | | | | [address] | [address] | | | | | [phone] | | | +--------+ + + + [...] | | | | | [place] | | | | | | [address] | | | | | | [phone] | | | | | | | | +--------+ + + + + documented as of this encounter Visit Diagnoses Not on filedocumented in this encounter"
--- OUTSIDE RECORDS SUMMARY | ~2018-07-18 | XMS | Encounter Summary ---
Demographics + + + | Address | [address] | | | [place] [address] | + + + | Home Phone [...] | | | | | [place] [address] | | + + + + + | Thania Mallory | ECON | [address] | | | | | [place] [address] | | + + + + + | Deidra Weldon | ECON | [address] | | | | | [place] | | | | | [address] | | + + + + + Care Team Providers + +------+ + | Care Christmas Tree Farm Crew Boss Name | Role | Phone | [...] Recommendations | | | | [place] | [facility] | | | | | [facility] | [place], [place] | | | | | [address] [facility] | [address] | | | | | [facility] | [phone] | | | | | Mailcode: [id number] | | | | | | [place] | | | | | | [place], [place] | | | | | | [address] | | | | | | [phone] | | | +--------+ + + + [...] Denise | | | | | | [place] | | | | | | [address] | | | | | | [phone] | | | | | | | | +--------+ + + + + documented as of this encounter Visit Diagnoses Not on filedocumented in this encounter"
--- OUTSIDE RECORDS SUMMARY | ~2018-07-18 | XMS | Encounter Summary ---
Demographics + + + | Address | [address] | | | [place] [address] | + + + | Home Phone [...] | | | | | [place] [address] | | + + + + + | Thania Mallory | ECON | [address] | | | | | [place] [address] | | + + + + + | Deidra Weldon | ECON | [address] | | | | | [place] | | | | | [address] | | + + + + + Care Team Providers + +------+ + | Care Plant Operator Helper Name | Role | [...] [address] | RN [address] | | | | | [facility] | [facility] | | | | | Road [place], [place] | [place], [place] | | | | | [address] | [address] | | | | | [phone] | | | +--------+ + + + [...] [place] | | | | | | [address] | | | | | | [phone] | | | | | | | | +--------+ + + + + documented as of this encounter Visit Diagnoses Not on filedocumented in this encounter"
--- OUTSIDE RECORDS SUMMARY | ~2018-07-18 | XMS | Encounter Summary ---
Demographics + + + | Address | [address] | | | [place] [address] | + + + | Home Phone [...] | | | | | [place] [address] | | + + + + + | Thania Mallory | ECON | [address] | | | | | [place] [address] | | + + + + + | Deidra Weldon | ECON | [address] | | | | | [place] | | | | | [address] | | + + + + + Care Team Providers + +------+ + | Care Tinner Automatic Name | Role | Phone | [...] Decision | | | | [address] [facility] | [facility] | | | | | Road [place], [place] | [place], [place] | | | | | [address] | [address] | | | | | [phone] | | | +--------+ + + + [...] Denise | | | | | | [place], [place] | | | | | | [address] | | | | | | [phone] | | | | | | | | +--------+ + + + + documented as of this encounter Visit Diagnoses Not on filedocumented in this encounter"
--- OUTSIDE RECORDS SUMMARY | ~2018-07-18 | XMS | Encounter Summary ---
Demographics + + + | Address | [address] | | | [place] [address] | + + + | Home Phone [...] | | | | | [place] [address] | | + + + + + | Thania Mallory | ECON | [address] | | | | | [place] [address] | | + + + + + | Deidra Weldon | ECON | [address] | | | | | [place] | | | | | [address] | | + + + + + Care Team Providers + +------+ + | Care Signals Analyst Name | Role | Phone | [...] [address] | RN [address] [facility] | | | | | [facility] | [facility] | | | | | Road [place], [place] | [place], [place] | | | | | [address] | [address] | | | | | [phone] | | | +--------+ + + + [...] Denise | | | | | | [place], [place] | | | | | | [address] | | | | | | [phone] | | | | | | | | +--------+ + + + + documented as of this encounter Visit Diagnoses Not on filedocumented in this encounter"
--- OUTSIDE RECORDS SUMMARY | ~2018-07-18 | XMS | Encounter Summary ---
Demographics + + + | Address | [address] | | | [place] [address] | + + + | Home Phone [...] | | | | | [place] [address] | | + + + + + | Thania Mallory | ECON | [address] | | | | | [place] [address] | | + + + + + | Deidra Weldon | ECON | [address] | | | | | [place] | | | | | [address] | | + + + + + Care Team Providers + +------+ + | Care Innersole Maker Name | Role | Phone | + +------+ + | Jonathan Alonso MD | PCP | | + +------+ + Encounter Details +--------+ + + + + | Date | Type | Department | Care Team | Description | +--------+ + + + + | 01/20/ | Hospital | Radiology at [facility] | | | | 2014 | Encounter | [address] [facility] [address] | | | | | | [facility] | | | | | | Mailcode: [id number] | | | | | | [place] | | | | | | [place], [place] | | | | | | [address] | | | | | | [phone] | | | +--------+ + + + [...] | Encounter | | [address] | | | | | | [place], [place] | | | | | | [address] | | | | | | [phone] | | | | | | | [...] | | | | signed / ALIREZA Slime | | | | | | EMIL 01/20/2015 | | | | | | 12:23 PM | | | | + + + + + + + + | Specimen | + + | | + + + +---------+ + + | Performing | Address | City/State/Zipcode | Phone Number | | Organization | | | | + +---------+ + + | [facility] | | | | | [...]
--- OUTSIDE RECORDS SUMMARY | ~2018-07-18 | XMS | Encounter Summary ---
Demographics + + + | Address | [address] | | | [place] [address] | + + + | Home Phone [...] | | | | | [place] [address] | | + + + + + | Thania Mallory | ECON | [address] | | | | | [place] [address] | | + + + + + | Deidra Weldon | ECON | [address] | | | | | [place] | | | | | [address] | | + + + + + Care Team Providers + +------+ + | Care Administrative Resident Name | Role | Phone | + [...] | ABO) | | | | [facility] | [facility] | | | | | Road [place], [place] | [place], [place] | | | | | [address] | [address] | | | | | [phone] | | | +--------+ + + + [...] Denise | | | | | | [place], [place] | | | | | | [address] | | | | | | [phone] | | | | | | | [...] + + | [facility] | [address] | [place] | [phone] | | [place] | | | | + + + + + documented in this encounter Visit Diagnoses Not on filedocumented in this encounter"
--- OUTSIDE RECORDS SUMMARY | ~2018-07-18 | XMS | Encounter Summary ---
Demographics + + + | Address | [address] | | | [place] [address] | + + + | Home Phone [...] | | | | | [place] [address] | | + + + + + | Thania Mallory | ECON | [address] | | | | | [place] [address] | | + + + + + | Deidra Weldon | ECON | [address] | | | | | [place] | | | | | [address] | | + + + + + Care Team Providers + +------+ + | Care Concrete Finisher Apprentice Name | Role | Phone [...] (pt | | | | [address] | [facility] | request to change | | | | Road [place], [place] | [place], [place] | clinic appt) | | | | [address] | [address] | | | | | [phone] | | | +--------+ + + + [...] Denise | | | | | | [place] | | | | | | [address] | | | | | | [phone] | | | | | | | | +--------+ + + + + documented as of this encounter Visit Diagnoses Not on filedocumented in this encounter"
--- OUTSIDE RECORDS SUMMARY | ~2018-07-18 | XMS | Encounter Summary ---
Demographics + + + | Address | [address] | | | [place] [address] [...] | | | | | [place] [address] | | + + + + + | Thania Mallory | ECON | [address] | | | | | [place] [address] | | + + + + + | Deidra Weldon | ECON | [address] | | | | | [place] | | | | | [address] | | + + + + + Care Team Providers + +------+ + | Care Primary Products Inspectors Name | Role | Phone | + [...] | | Jonathan Gallagher, | [address] | | | | | | [address] | [address] | | | | | | Keven | [place] | | | | | | [facility] | Road | | | | | | [address] | Mailcode: | | | | | | [address] | DCH[address] | | | | | | [place] | [place] | | | | | | [place] | [place], [place] | | | | | | [address] | [address] | | | | | | Phone: | Phone: | | | | | | [phone] | [phone] | | | | | | Fax: | | | | | | | [phone] | | +--------+--------+ + + + + Encounter Details +--------+---------+ + + + | Date | Type | Department | Care Team | Description | +--------+---------+ + + + | 05/11/ | Office | Specialty Clinics | Sudhakar Joy | HSP | | 2016 | Visit | at [facility] [address] | DMD [address] | ([facility] | | | | [facility] | [address] | purpura) nephritis | | | | Mailcode: [facility] | [place], [place] | (Primary Dx); Anemia | | | | [address] | [address] | of chronic kidney | | | | [place], [place] | [phone] | failure, stage 5 | | | | [address] | | ([facility]) | | | | [phone] | | | +--------+---------+ + + + [...] [address] Mail code [facility] [place], [place] [address] Estrella Brennan MA - 05/12/2015 10:48 AM [...] Denise | | | | | | [place], [place] | | | | | | [address] | | | | | | [phone] | | | | | | | [...]
--- OUTSIDE RECORDS SUMMARY | ~2018-07-18 | XMS | Encounter Summary ---
Demographics + + + | Address | [address] | | | [place] [address] | + + + | Home Phone [...] | | | | | [place] [address] | | + + + + + | Thania Mallory | ECON | [address] | | | | | [place] [address] | | + + + + + | Deidra Weldon | ECON | [address] | | | | | [place] | | | | | [address] | | + + + + + Care Team Providers + +------+ + | Care Weight Engineer Name | Role | Phone | [...] | | 2012 | ann | [address] [facility] | | | | | | [facility] | | | | | | [place], [place] | | | | | | [address] | | | +--------+ + + + [...] Denise | | | | | | [place], [place] | | | | | | [address] | | | | | | [phone] | | | | | | | | +--------+ + + + + documented as of this encounter Visit Diagnoses Not on filedocumented in this encounter"
--- OUTSIDE RECORDS SUMMARY | ~2018-07-18 | XMS | Encounter Summary ---
Demographics + + + | Address | [address] | | | [place] [address] | + + + | Home Phone [...] | | | | | [place] [address] | | + + + + + | Thania Mallory | ECON | [address] | | | | | [place] [address] | | + + + + + | Deidra Weldon | ECON | [address] | | | | | [place] | | | | | [address] | | + + + + + Care Team Providers + +------+ + | Care Canceling Machine Operator Name | Role | Phone [...] L [address] | Update (ANNALISA GORDON | | | | [address] [place] | [address] | update; check-in on | | | | Road [place], [place] | [place], [place] | psychosocial goals | | | | [address] | [address] | related to listing | | | | [phone] | | status) | +--------+ + + [...] Denise | | | | | | [place], [place] | | | | | | [address] | | | | | | [phone] | | | | | | | | +--------+ + + + + documented as of this encounter Visit Diagnoses Not on filedocumented in this encounter"
--- OUTSIDE RECORDS SUMMARY | ~2018-07-18 | XMS | Encounter Summary ---
Demographics + + + | Address | [address] | | | [place] [address] | + + + | Home Phone [...] | | | | | [place] [address] | | + + + + + | Thania Mallory | ECON | [address] | | | | | [place] [address] | | + + + + + | Deidra Weldon | ECON | [address] | | | | | [place] | | | | | [address] | | + + + + + Care Team Providers + +------+ + | Care Application Designer Name | Role | Phone | [...] SW | | | | [address] [facility] | [facility] | follow-up on | | | | Road [place], [place] | [place], [place] | family's [place] | | | | [address] | [address] | care plan) | | | | [phone] | | | +--------+ + + + [...] | | | | | | [place] | | | | | | [address] | | | | | | [phone] | | | | | | | | +--------+ + + + + documented as of this encounter Visit Diagnoses Not on filedocumented in this encounter"
--- OUTSIDE RECORDS SUMMARY | ~2018-07-18 | XMS | Encounter Summary ---
Demographics + + + | Address | [address] | | | [place] [address] | + + + | Home Phone [...] | | | | | [place] [address] | | + + + + + | Thania Mallory | ECON | [address] | | | | | [place] [address] | | + + + + + | Deidra Weldon | ECON | [address] | | | | | [place] | | | | | [address] | | + + + + + Care Team Providers + +------+ + | Care Wooden Frame Builder Name | Role | Phone | [...] Shun | | | | | [address] [facility] | [facility] | | | | | Road [place], [place] | [place], [place] | | | | | [address] | [address] | | | | | [phone] | | | +--------+ + + + [...] [place] | | | | | | [address] | | | | | | [phone] | | | | | | | | +--------+ + + + + documented as of this encounter Visit Diagnoses Not on filedocumented in this encounter"
--- OUTSIDE RECORDS SUMMARY | ~2018-07-18 | XMS | Encounter Summary ---
Demographics + + + | Address | [address] | | | [place] [address] | + + + | Home Phone [...] + + + | Author | [facility] | + + + | Organization [...] Providers + +------+ + | Care Pigment Presser Name | Role | Phone | [...] and diastolic heart | | | | [facility] [address] | [place] [address] | failure (HCC) | | | | [place] [address] | [phone] | (Primary Dx); | | | | [phone] | | Non-rheumatic mitral | | | [...] patient of , who is her primary edger hand, and last seen by her June 14, [...] when hospitalized May 26-to June 01 at [facility] treated with th oracentesis and paracentesis, [...] currently being considered for kidney transplant from [facility] due to her non compliance with treatment and HD, and her renal disease is followed by clay burner Dr. Anguiano. I also reviewed note from Dr. Camp at [facility] from April which documented a long [...] Monday/ Monday followed by Dr. Anguiano, and [facility] ( Dr. Camp) denies hematuria. Musculoskeletal:unknown [...] behavior and non compliance. Has previously declined alcoholic counselor ing. Vaccines: Current on flu vaccine?. Current on pneumonia vaccine?. Habits/Social : history of smoking, quit 2017, half a pack a day x2 years?. Denies EtOH u se. Smokes 0.5 gm of cannabis daily, transitioning to oral. Denies other recreational or i llicit drug use. Lives in [place] [facility] Medications Prior to Visit Medication Sig [...] No results found for: METF, NMETFX, TFNMFX, JKVPSCG52BNR, GYBCFF54WCR, TOTEPI CARDIAC PROCEDURES/IMAGING ECHO Last echo: 06/12/2018: ([facility]): Technically adequate study. Sinus rhythm. EF 30-35%. [...] RVSP 67.65 mmHg pulmonic valve normal, mild DC. Moderate pericardial effusion near right at rium. No evidence of cardiac tamponade. IVC WNL, CVP 10-15. Flow patterns and pulmonary v eins indicate systolic blunting. Bowing of intra-arterial septum to the left consistent wit h elevated right-sided pressure Echo: 05/27/[address]): Sinus rhythm. Technically adequate study. [...] to limb leads. R ate 83 bpm, DC 144 ms, QRS 72 ms, QTC 437 ms, tracing personally reviewed by me. EKG 05/28/2018 : normal sinus rhythm, low voltage QRS except for V2. Poor R wave progressi on, nonspecific T wave abnormalities to inferolateral leads with mild T wave inversions V5, V6. Rate 75 bpm, DC 182 ms, QRS 84 ms, QTC 433 ms,tracing personally reviewed by me. EK06/19/2018: ([facility]): Sinus tachycardia, low voltage QRS to limb leads and V1. Rate 11 5 bpm, DC 154 ms, QRS 86 ms, QTC 473 ms. Tracing personally reviewed by me, and resolution of previous T wave inversions in V5 and V6 EK06/28/2018: ([facility]:) normal sinus rhythm, stable nonspecific T and ST wave abnormality. Rate 99 bpm, DC 162 ms, QRS 88 ms, QTC 477 [...] 97, ALT 231, GFR 7 Labs: 06/20/2018: ([facility]): Troponin T 0.168, BNP 3200. CMP: [...] past surgical history. Problem list. KRISHNA Zimmer [facility] 06/28/2018in this encounter Plan of Treatment +--------+---------+ + + + | Date | Type | Specialty | Care Team | Description | +--------+---------+ + + + | 07/19/ | Office | Cardiology | Gretchen Teran | | | 2019 | Visit | | [address] | | | | | | [address] | | | | | | [place] [address] | | | | | | [phone] | | | | | | | [...] + + + + | Calculated P [place] | 45 | degrees | [facility] | + + + + + | Calculated R [place] | -7 | degrees | [facility] | + + + + + | Calculated T [place] | 104 | degrees | [facility] | + + + + + | Diagnosis | Please refer to | | [facility] | | | Providers office visit | | | | | note for Providers | | | | | Interpretation.Confirmed | | | | | by [facility] Morrison Read Only, | | | | | [facility] Shantelle ([id number]), | | | | | editor managing newspaper Joey Phillips | | | | | ([id number]) on 06/28/2018 | | | | | 1:01:23 PM | | | + + + + + + + + + + | Performing | Address | City/State/Zipcode | Phone Number | | Organization | | | | + + + + + | [facility] | [address] | [place] [address] | | + + + + + [...]
--- OUTSIDE RECORDS SUMMARY | ~2018-07-18 | XMS | Encounter Summary ---
Demographics + + + | Address | [address] | | | [place] [address] | + + + | Home Phone [...] | | | | | [place] [address] | | + + + + + | Thania Mallory | ECON | [address] | | | | | [place] [address] | | + + + + + | Deidra Weldon | ECON | [address] | | | | | [place] | | | | | [address] | | + + + + + Care Team Providers + +------+ + | Care Concert Manager Name | Role | Phone | [...] (psychosocial update | | | | Road [place], [place] | [place], [place] | from pt's mom) | | | | [address] | [address] | | | | | [phone] | | | +--------+ + + + [...] [place] | | | | | | [address] | | | | | | [phone] | | | | | | | | +--------+ + + + + documented as of this encounter Visit Diagnoses Not on filedocumented in this encounter"
--- OUTSIDE RECORDS SUMMARY | ~2018-07-18 | XMS | Encounter Summary ---
Demographics + + + | Address | [address] | | | [place] [address] | + + + | Home Phone [...] | | | | | [place] [address] | | + + + + + | Thania Mallory | ECON | [address] | | | | | [place] [address] | | + + + + + | Deidra Weldon | ECON | [address] | | | | | [place] | | | | | [address] | | + + + + + Care Team Providers + +------+ + | Care Jump Iron Machine Presser Name | Role | Phone | [...] (Delisting) | | | | [address] [facility] | [facility] | | | | | Road [place], [place] | [place], [place] | | | | | [address] | [address] | | | | | [phone] | | | +--------+ + + + [...] Denise | | | | | | [place] | | | | | | [address] | | | | | | [phone] | | | | | | | | +--------+ + + + + documented as of this encounter Visit Diagnoses Not on filedocumented in this encounter"
--- OUTSIDE RECORDS SUMMARY | ~2018-07-18 | XMS | Encounter Summary ---
Demographics + + + | Address | [address] | | | [place] [address] | + + + | Home Phone [...] | | | | | [place] [address] | | + + + + + | Thania Mallory | ECON | [address] | | | | | [place] [address] | | + + + + + | Deidra Weldon | ECON | [address] | | | | | [place] | | | | | [address] | | + + + + + Care Team Providers + +------+ + | Care Solution Advisor Name | Role | Phone | [...] [address] | ABRIL [address] [facility] | | | | | [facility] | [facility] | | | | | Road [place], [place] | [place], [place] | | | | | [address] | [address] | | | | | [phone] | | | +--------+ + + + [...] Denise | | | | | | [place], [place] | | | | | | [address] | | | | | | [phone] | | | | | | | | +--------+ + + + + documented as of this encounter Visit Diagnoses Not on filedocumented in this encounter"
--- OUTSIDE RECORDS SUMMARY | ~2018-07-18 | XMS | Encounter Summary ---
Demographics + + + | Address | [address] | | | [place] [address] | + + + | Home Phone [...] | | | | | [place] [address] | | + + + + + | Thania Mallory | ECON | [address] | | | | | [place] [address] | | + + + + + | Deidra Weldon | ECON | [address] | | | | | [place] | | | | | [address] | | + + + + + Care Team Providers + +------+ + | Care Charge Histotechnologist Name | Role | Phone | + [...] | on | Coordinators [address] | [place], [place] | | | | | [address] [place] | [address] | | | | | Road [place], [place] | | | | | | [address] | | | | | | [phone] | | | +--------+ + + + [...] [place] | | | | | | [address] | | | | | | [phone] | | | | | | | | +--------+ + + + + documented as of this encounter Visit Diagnoses Not on filedocumented in this encounter"
--- OUTSIDE RECORDS SUMMARY | ~2018-07-18 | XMS | Encounter Summary ---
Demographics + + + | Address | [address] | | | [place] [address] | + + + | Home Phone [...] + + + | Author | [employer] | + + + | Organization | [facility] | + + [...] Team Providers + +------+ + | Care Shoe Designer Name | Role | Phone | [...] | [address] | [place], [place] | HF chronicity (HCC) | | | | [address] | [address] | (Primary Dx); | | | | [place] [address] | | Severe tricuspid | | | | [phone] | | regurgitation; | | | | | | Pulmonary HTN ([facility]); | | | | | | ESRD (end stage | | | | | | renal disease) ([facility]) | +--------+---------+ + + + Social [...] may be different from th e jared. [facility] Cardiology Cardiology Consult Note Reason for Consultation: [...] History Diagnosis Date Anemia Clotted dialysis access ([facility]) 2014 ESRD (end stage renal disease) ([facility]) HSP (Henoch-Schonlein purpura) nephritis ([facility]) Hypertension Past Surgical History Procedure Laterality Date ABDOMINAL SURGERY AV FISTULA PLACEMENT AV FISTULA PLACEMENT Left 04/08/2014 Procedure: AV FISTULA; Surgeon: Rik Simon MD; Location: [facility] MAIN OR; Service: Vascula r; Laterality: Left; cephalic AV FISTULA REPAIR Left 03/07/2014 Procedure: AV FISTULA - GRAFT REPAIR/REVISION; Surgeon: Rik Simon MD; Location: [facility] IN OR; Service: Vascular; Laterality: Left; DECLOT GRAFT Left 03/07/2014 Procedure: GRAFT - DECLOT; Surgeon: Rik Simon MD; Location: [facility] MAIN OR; Service: Vas cular; Laterality: [...] - SUPERFICIALIZATION; Surgeon: Rik Simon MD; Location: [facility] MAIN OR; Service: Vascular; Laterality: [...] 17. The mitral valve is normal. 18. Iiyg-tn-iqamaujy eccentric mitral regurgitation is present. 19. Severe [...] on HD. She recently presented to the [facility] after missing several dialysis sessions [...] Gretchen Teran for heart failure therapy tit [facility]. Thank you for allowing me to participate [...] | | | | | [place] [address] | | | | | | [phone] | | | | | | | [...]
--- OUTSIDE RECORDS SUMMARY | ~2018-07-18 | XMS | Encounter Summary ---
Demographics + + + | Address | [address] | | | [place] [address] | + + + | Home Phone [...] | | | | | [place] [address] | | + + + + + | Thania Mallory | ECON | [address] | | | | | [place] [address] | | + + + + + | Deidra Weldon | ECON | [address] | | | | | [place] | | | | | [address] | | + + + + + Care Team Providers + +------+ + | Care Medication Tech Name | Role | Phone | [...] check-in on | | | | Road [place], [place] | [place], [place] | psychosocial goals | | | | [address] | [address] | related to listing | | | | [phone] | | status) | +--------+ + + [...] | | | | | | [place], [place] | | | | | | [address] | | | | | | [phone] | | | | | | | | +--------+ + + + + documented as of this encounter Visit Diagnoses Not on filedocumented in this encounter"
--- OUTSIDE RECORDS SUMMARY | ~2018-07-18 | XMS | Encounter Summary ---
Demographics + + + | Address | [address] | | | [place] [address] | + + + | Home Phone [...] | | | | | [place] [address] | | + + + + + | Thania Mallory | ECON | [address] | | | | | [place] [address] | | + + + + + | Deidra Weldon | ECON | [address] | | | | | [place] | | | | | [address] | | + + + + + Care Team Providers + +------+ + | Care Hollock Maker Name | Role | Phone | [...] W Anil | | | | | ([facility]) | Anil Griffin | Elias Elizondo | | | | | Procedures | [address] | Road | | | | | TRANSTHORACI | [place], [place] | Mailcode: | | | | | C | [address] | DCH8S | | | | | ECHOCARDIOGR | Phone: | Alexander | | | | | IMANI, PEDS | [phone] | [place], [place] | | | | | | Fax: | [address] | | | | | | [phone] | Phone: | | | | | | | [phone] | | | | | | | Fax: | | | | | | | [phone] | +--------+--------+ + + + + Reason [...] | Update | | | | [facility] | [facility] | | | | | Road [place], [place] | [place], [place] | | | | | [address] | [address] | | | | | [phone] | | | +--------+ + + + [...] Denise | | | | | | [place], [place] | | | | | | [address] | | | | | | [phone] | | | | | | | [...] view image for the detailed interpretation from [facility] results. | CARDIOLOGY | + + + + + | Procedure Note | + + | Interface, Cardiology Results - 12/21/2012 9:38 AM PDT Please click on view image | | for the detailed interpretation from [facility] results. | + + + + + + + | Performing | Address | City/State/Zipcode | Phone Number | | Organization | | | | + + + + + | [facility] | [address] | [place], [place] | | | CARDIOLOGY | [address] | [address] | | + + + + + LIT SRUTHI-B WILEY ZHANG (12/20/2012 10:02 AM PDT) + + | Specimen | + + | Blood - Blood | + + + + + + + | Performing | Address | City/State/Zipcode | Phone Number | | Organization | | | | + + + + + | [facility] - | [address] | [place] [address] | | | IMMUNOGENETICS/TRANS | [address] [...] [facility] - | [address] | [place] [address] | | | IMMUNOGENETICS/TRANS | [address] [...] - | [address] | [place], [place] | | | IMMUNOGENETICS/TRANS | Suite [...] - | [address] | [place], [place] | | | IMMUNOGENETICS/TRANS | Suite [...] + + | [facility] - | [address] | [place] [address] | | | IMMUNOGENETICS/TRANS | [address] [...] [facility] - | [address] | [place] [address] | | | IMMUNOGENETICS/TRANS | [address] [...] UNIV | | | | Lorne Drew [facility] | | PTH - INTFC | | | | [address] | | | | | | [phone]. | | | | | | Faisal [...] [facility] | [address] | [place], [place] | | | UNIV PTH - INTFC | | [address] | | + + + + + [...] [facility] | [address] | [place] [address] | | | SERVICES, HOMERO | LONG [...] [facility] | [address] | [place] [address] | | | SERVICES, CORE | LONG [...] - | | | | | | [place] | | + + + + + + + + | Specimen | + + | Blood - Blood | + + + + + + + | Performing | Address | City/State/Zipcode | Phone Number | | Organization | | | | + + + + + | [facility] | [address] | [place] [address] | | | [place] | | | | + + + [...] + + | [facility] | [address] | [place] [address] | | | SERVICES, CORE | PARK [...] LABORATORY | [address] | [place] [address] | | | SERVICES, CORE | PARK [...] [facility] | [address] | [place] [address] | | | RIKY, HOMERO | LONG [...] - | | | | | | [place] | | + + + + + + + + | Specimen | + + | Blood - Blood | + + + + + + + | Performing | Address | City/State/Zipcode | Phone Number | | Organization | | | | + + + + + | [facility] | [address] | [place] [address] | | | [place] | | | [...] | | | at: | | | http://www.cdc.gov/nchstp/tb/pubs/tbfactssheets/910254.htm | | | Test performed by: [facility] | | | Public [facility] [address] [place] [address] | | | | | + + [...] [facility] | [address] | [place] [address] | | | SERVICES, SPECIAL | PARK [...] INTERPRETATION: Prothrombin mutation analysis shows that | [facility] | | there is no mutation in either copy of the prothrombin gene at | DIAGNOSTIC | | nucleotide 11078. Please note that this assay only detects the | LABORATORIES | | [id number] point mutation and therefore a normal result [...] has been analyzed for the presence of [id number] | | | mutation in the prothrombin [...] | above. Heterozygotes for the common prothrombin [id number] mutation | | | constitute approximately 2% of the normal white population (1,2). | | | References: 1.) Poort et al. Blood 88, 7676-6273 (1996). 2.) Ricardo | | | et al. Circulation 99, 999-1004 (1998). 3.) Al Montalvo, and | | | Chase. Amer J Clin Path 155, 439-47 (2000). This test was | | | developed and its performance characteristics determined by the [facility] | | | [facility]. It has | | | not been cleared or approved by the Food and Drug | | | Administration. FDA approval is not required for clinical use of | | | this test, and therefore validation was done as required under the | | | requirements of the Clinical Laboratory Improvement Act of | | | 1988. The [facility] | | | Center is a fully licensed and/or accredited clinical laboratory under | | | CLIA, [facility], and the State [facility]. Please note that our lab now [...] | Performing | Address | City/State/[facility] Cent[facility]ode | Phone Number | | Organization | | | | + + + + + | [facility] | [address] | [place] [address] | | | DIAGNOSTIC | [address] [...] HOSPITAL LABORATORY | [address] | [place] [address] | | | SERVICES, CORE | PARK [...] [facility] | [address] | [place] [address] | | | SERVICES, CORE | LONG [...] HOSPITAL LABORATORY | [address] | [place] [address] | | | SERVICES, HOMERO | LONG [...] [facility] | [address] | [place] [address] | | | SERVICES, HOMERO | LONG [...] | | | | | | [place], [place] [address] | | | | | | [phone]. | | | | | | Faisal [...] [facility] | [address] | [place], [place] | | | UNIV PTH - INTFC | | [address] | | + + + + + [...] | + + + + + | [facility] | [address] | [place] [address] | | | SERVICES, SPECIAL | PARK [...] + + + + | [facility] | [address] | [place] [address] | | | DIAGNOSTIC | [address] [...] + | [facility] - | [address] | [place] [address] | | | [place] | | | [...] + | [facility] - | [address] | [place] [address] | | | [place] | | | [...] + | [facility] - | [address] | [place] [address] | | | [place] | | | [...] + | [facility] - | [address] | [place] [address] | | | [place] | | | | + + + [...] less......Not | | | | | | Ftrfpnhh84.0-21.9 | | | | | | U/mL.........Indetermina [...] available | | | | | | [email or web address] | | | | | | vdx.Performed by [facility] | | | | | | Tania,Reid Pradhan | | | | | | [place] [address] | | | | | | [phone]. | | | | | | Faisal [...] [facility] | [address] | [place], [place] | | | UNIV PTH - INTFC | | [address] | | + + + + [...] + | [facility] - | [address] | [place] [address] | | | [facility] [...] HOSPITAL LABORATORY | [address] | [place] [address] | | | SERVICES, HOMERO | PARK [...] by | | | | | | [employer],[address] | | | | | | Lorne [place], [facility],[place] | | | | | | [address] | | | | | | [phone]. | | | | | | Faisal [...] [facility] | [address] | [place], [place] | | | UNIV PTH - INTFC | | [address] | | + + + + + [...] | + + + + + | [facility] | [address] | [place] [address] | | | SERVICES, CORE | PARK [...] [facility] | [address] | [place] [address] | | | SERVICES, CORE | PARK [...] [facility] | [address] | [place] [address] | | | HOMERO LAN | LONG [...]
--- OUTSIDE RECORDS SUMMARY | ~2018-07-18 | XMS | Encounter Summary ---
Demographics + + + | Address | [address] | | | [place] [address] | + + + | Home Phone [...] | | | | | [place] [address] | | + + + + + | Thania Mallory | ECON | [address] | | | | | [place] [address] | | + + + + + | Deidra Weldon | ECON | [address] | | | | | [place] | | | | | [address] | | + + + + + Care Team Providers + +------+ + | Care Parole Or Probation Officer Name | Role | Phone [...] | Update | | | | [facility] | [facility] | | | | | Road [place], [place] | [place], [place] | | | | | [address] | [address] | | | | | [phone] | | | +--------+ + + + [...] | | | | | | [place] | | | | | | [address] | | | | | | [phone] | | | | | | | | +--------+ + + + + documented as of this encounter Visit Diagnoses Not on filedocumented in this encounter"
--- OUTSIDE RECORDS SUMMARY | ~2018-07-18 | XMS | Encounter Summary ---
Demographics + + + | Address | [address] | | | [place] [address] | + + + | Home Phone [...] | [facility] | | | and Josephana | + + + | Organization | [facility] [...] Providers + +------+ + | Care Clinical Trials Manager Name | Role | Phone [...] | | KIDNEY TRANSPLANT | [address], | | | | | [address] [facility] [address] | | | | | [address] [place] | [phone] | | | | | [address] | | | | | | [phone] | | | +--------+ + + + [...]
--- OUTSIDE RECORDS SUMMARY | ~2018-07-18 | XMS | Encounter Summary ---
Demographics + + + | Address | [address] | | | [place] [address] | + + + | Home Phone [...] + | Author | [facility] | | | and Josephana | + + + | Organization | [facility] | | | [...] Providers + +------+ + | Care Strap Folding Machine Operator Name | Role | [...] [address] [place] | [place] [address] | to return call to | | | | [address] | [phone] | complete intake | | | | [address] | | quest.) | | | | [phone] | | | +--------+ + + + [...]
--- OUTSIDE RECORDS SUMMARY | ~2018-07-18 | XMS | Encounter Summary ---
Demographics + + + | Address | [address] | | | [place] [address] | + + + | Home Phone [...] | | | | | [place] [address] | | + + + + + | Thania Mallory | ECON | [address] | | | | | [place] [address] | | + + + + + | Deidra Weldon | ECON | [address] | | | | | [place] | | | | | [address] | | + + + + + Care Team Providers + +------+ + | Care Global Ceo Name | Role | Phone | + [...] [facility] | [facility] | | | | | Road [place], [place] | [place], [place] | | | | | [address] | [address] | | | | | [phone] | | | +--------+ + + + [...] [place] | | | | | | [address] | | | | | | [phone] | | | | | | | | +--------+ + + + + documented as of this encounter Visit Diagnoses Not on filedocumented in this encounter"
--- OUTSIDE RECORDS SUMMARY | ~2018-07-18 | XMS | Encounter Summary ---
Demographics + + + | Address | [address] | | | [place] [address] | + + + | Home Phone [...] | | | | | [place] [address] | | + + + + + | Thania Mallory | ECON | [address] | | | | | [place] [address] | | + + + + + | Deidra Weldon | ECON | [address] | | | | | [place] | | | | | [address] | | + + + + + Care Team Providers + +------+ + | Care Lumber Driver Name | Role | Phone | + +------+ + | Jonathan Alonso MD | PCP | | + +------+ + Encounter Details +--------+ + + + + | Date | Type | Department | Care Team | Description | +--------+ + + + + | 01/20/ | Hospital | Radiology at [facility] | | | | 2014 | Encounter | [address] | | | | | | [facility] | | | | | | Mailcode: L340 | | | | | | Alexander | | | | | | [place], [place] | | | | | | [address] | | | | | | [phone] | | | +--------+ + + + [...] Camelia | | | | | | [place], [place] | | | | | | [address] | | | | | | [phone] | | | | | | | [...] | | + +---------+ + + | [facility]PARTMENT OF | | | | | [...]
--- OUTSIDE RECORDS SUMMARY | ~2018-07-18 | XMS | Encounter Summary ---
Demographics + + + | Address | [address] | | | [place] [address] | + + + | Home Phone [...] + + + | Author | [employer] | + + + | Organization | [facility] | + [...] Providers + +------+ + | Care Marine Electrician Name | Role | Phone | [...] | | | | | | [place] [address] | | | | | | [phone] | | | | | | | [...] Álvarez | | | | | | [place] [address] | | | | | | [phone] | | | | | | | [...] WELDON Date of : 1995 | [facility] | | Performing Physician: René Noonan MD [...] MV A Shahid: 0.39 m/s MV Dec Dauphin: 9.46 m/s2 | | | MV DecT: 106.01 ms MV E Shahid: 1.00 m/s MV E/A Ratio: | | | 2.54 E/E' Sept: 23.82 E' Lat: 0.08 m/s E' Sept: 0.04 | | | m/s RAP: 15 mmHg RV S': 0.11 m/s RVSP: 67.64 mmHg TR | | | maxP.64 mmHg TR Vmax: 3.61 m/s S3B Multi Sensor Operator: | | | Authenticated by: René Noonan MD Report Date/Time: -- | | | [id number]:25 | | + + + + + | Procedure Note | + + | Sonido Steele Results In - 06/12/2018 4:15 PM PDT Patient Name: Anders WELDON of | | : 1995Accession: [id number] Physician: René Noonan MD | | INDICATIONS [...] (A-L): 31.60 | | ml/m2LAAs A2C: 18.56 [id number] A-L A2C: 58.49 mlLAESV MOD A2C: 54.57 mlLALs A2C: | | 5.00 cmLAAs A4C: 17.96 fo8FXOOX A-L A4C: 52.99 mlLAESV MOD A4C: 44.93 mlLALs A4C: | | 5.18 cmLAESV(MOD BP): 49.83 mlRAAs: 18.33 oj5MKVDA A-L: 57.01 mlRAESV MOD: | | 56.24 mlRALs: 5.02 cmTAPSE: 1.98 cmAV Env.Ti: 227.35 msAV maxP.22 mmHgAV | | meanP.25 mmHgAV Vmax: 1.59 m/Elizabeth Vmean: 1.06 m/Elizabeth VTI: 24.30 cmAVA Vmax: | | 2.68 cm2AVA (VTI): 2.73 mn0DTNJ Vmax: 0.00 cm2/m2AVAI (VTI): 0.00 cm2/m2LVOT | | Env.Ti: 210.72 msLVOT maxP.99 mmHgLVOT meanP.87 mmHgLVSI Dopp: 37.17 | | ml/m2LVSV Dopp: 66.54 mlLVOT Vmax: 1.41 m/sLVOT Vmean: 1.03 m/sLVOT VTI: 21.88 | | cmMV A Shahid: 0.39 m/sMV Dec Dauphin: 9.46 m/s2MV DecT: 106.01 msMV E Shahid: 1.00 | | m/sMV E/A Ratio: 2.54 E/E' Sept: 23.82 E' Lat: 0.08 m/sE' Sept: 0.04 m/sRAP: | | 15 mmHgRV S': 0.11 m/sRVSP: 67.64 mmHgTR maxP.64 mmHgTR Vmax: 3.61 | | m/sSonographer: Authenticated by: René Noonan MDReport Date/Time: -- | | [id number]:15:25IMPRESSION:1. Overall left ventricular systolic function is | [...] A Shahid: 0.39 m/s | |MV Dec Dauphin: 9.46 m/s2 | |MV DecT: 106.01 ms | |MV E Shahid: 1.00 m/s | |MV E/A Ratio: 2.54 | |E/E' Sept: 23.82 | |E' Lat: 0.08 m/s | |E' Sept: 0.04 m/s | |RAP: 15 mmHg | |RV S': 0.11 m/s | |RVSP: 67.64 mmHg | |TR maxP.64 mmHg | |TR Vmax: 3.61 m/s | | | |S3B Multi Sensor Operator: | |Authenticated by: René Noonan MD | |Report Date/Time: -- [id number]:15:25 | | | |IMPRESSION: | |1. Overall [...] | + + + + + | [facility] | [address] | [place] [address] | | + + + + + in this encounter Visit Diagnoses + + | Diagnosis | + + | Dyspnea, unspecified type | + +"
--- OUTSIDE RECORDS SUMMARY | ~2018-07-18 | XMS | Encounter Summary ---
[...] | | | | | [place] [address] | | + + + + + | Thania Mallory | ECON | [address] | | | | | [place] [address] | | + + + + + | Deidra Weldon | ECON | [address] | | | | | [place] | | | | | [address] | | + + + + + Care Team Providers + +------+ + | Care Business Travel Consultant Name | Role | Phone | + +------+ + | Shahid Camargo MD | PCP | Unavailable | + +------+ + Encounter Details +--------+ + + + + | Date | Type | Department | Care Team | Description | +--------+ + + + + | 12/20/ | Hospital | Radiology at [facility] | | | | 2012 | Encounter | [address] | | | | | | 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
--- OUTSIDE RECORDS SUMMARY | ~2018-07-18 | XMS | Encounter Summary ---
Demographics + + + | Address | [address] | | | [place] [address] | + + + | Home Phone [...] | | | | | [place] [address] | | + + + + + | Thania Mallory | ECON | [address] | | | | | [place] [address] | | + + + + + | Deidra Weldon | ECON | [address] | | | | | [place] | | | | | [address] | | + + + + + Care Team Providers + +------+ + | Care Marine Resource Economist Name | Role | Phone | [...] | [address] [facility] | [facility] | | | | | Road [place], [place] | [place], [place] | | | | | [address] | [address] | | | | | [phone] | | | +--------+ + + + [...] Denise | | | | | | [place] | | | | | | [address] | | | | | | [phone] | | | | | | | | +--------+ + + + + documented as of this encounter Visit Diagnoses Not on filedocumented in this encounter"
--- OUTSIDE RECORDS SUMMARY | ~2018-07-18 | XMS | Encounter Summary ---
Demographics + + + | Address | [address] | | | [place] [address] | + + + | Home Phone [...] | | | | | [place] [address] | | + + + + + | Thania Mallory | ECON | [address] | | | | | [place] [address] | | + + + + + | Deidra Weldon | ECON | [address] | | | | | [place] | | | | | [address] | | + + + + + Care Team Providers + +------+ + | Care Spa Coordinator Name | Role | Phone | [...] | | | | | [place] | [facility] | | | | | [facility] | [place], [place] | | | | | [address] | [address] | | | | | [facility] | [phone] | | | | | Mailcode: DCH7 | | | | | | [place] | | | | | | [place], [place] | | | | | | [address] | | | | | | [phone] | | | +--------+ + + + [...] Denise | | | | | | [place] | | | | | | [address] | | | | | | [phone] | | | | | | | | +--------+ + + + + documented as of this encounter Visit Diagnoses Not on filedocumented in this encounter"
--- OUTSIDE RECORDS SUMMARY | ~2018-07-18 | XMS | Encounter Summary ---
Demographics + + + | Address | [address] | | | [place] [address] | + + + | Home Phone [...] | | | | | [place] [address] | | + + + + + | Thania Mallory | ECON | [address] | | | | | [place] [address] | | + + + + + | Deidra Weldon | ECON | [address] | | | | | [place] | | | | | [address] | | + + + + + Care Team Providers + +------+ + | Care Terrazzo Mechanic Helper Name | Role | Phone | [...] 2013 | | Coordinators [address] | [place], [place] | Update | | | | [address] [facility] | [address] | | | | | Road [place], [place] | | | | | | [address] | | | | | | [phone] | | | +--------+ + + + [...] [place] | | | | | | [address] | | | | | | [phone] | | | | | | | | +--------+ + + + + documented as of this encounter Visit Diagnoses Not on filedocumented in this encounter"
--- OUTSIDE RECORDS SUMMARY | ~2018-07-18 | XMS | Encounter Summary ---
Demographics + + + | Address | [address] | | | [place] [address] | + + + | Home Phone [...] | | | | | [place] [address] | | + + + + + | Thania Mallory | ECON | [address] | | | | | [place] [address] | | + + + + + | Deidra Weldon | ECON | [address] | | | | | [place] | | | | | [address] | | + + + + + Care Team Providers + +------+ + | Care Ion Exchange Operator Name | Role | Phone | [...] Shun | | | | | [facility] | [facility] | | | | | Road [place], [place] | [place], [place] | | | | | [address] | [address] | | | | | [phone] | | | +--------+ + + + [...] [facility] | | | | | | [address] | | | | | | [phone] | | | | | | | | +--------+ + + + + documented as of this encounter Visit Diagnoses Not on filedocumented in this encounter"
--- OUTSIDE RECORDS SUMMARY | ~2018-07-18 | XMS | Encounter Summary ---
Demographics + + + | Address | [address] | | | [place] [address] | + + + | Home Phone [...] | | | | | [place] [address] | | + + + + + | Thania Mallory | ECON | [address] | | | | | [place] [address] | | + + + + + | Deidra Weldon | ECON | [address] | | | | | [place] | | | | | [address] | | + + + + + Care Team Providers + +------+ + | Care Masking Machine Operator Name | Role | Phone [...] Griffin | | | | | | [employer] [facility] | | | | | | [place], [place] | | | | | | [address] | | | +--------+ + + + [...] | | | | | | [place], [place] | | | | | | [address] | | | | | | [phone] | | | | | | | [...] [facility] - | [address] | [place] [address] | | | IMMUNOGENETICS/TRANS | [address] [...] [facility] - | [address], | [place] [address] | | | IMMUNOGENETICS/TRANS | [address] [...] [facility] - | [address] | [place] [address] | | | IMMUNOGENETICS/TRANS | [address] | | | | [facility] | | | | + + + + + documented in this encounter Visit Diagnoses + + | Diagnosis | + + | End stage renal disease (HCC) End stage renal disease | + + documented in this encounter"
--- OUTSIDE RECORDS SUMMARY | ~2018-07-18 | XMS | Encounter Summary ---
[...] | | | | | [place] [address] | | + + + + + | Thania Mallory | ECON | [address] | | | | | [place] [address] | | + + + + + | Deidra Weldon | ECON | [address] | | | | | [place] | | | | | [address] | | + + + + + Care Team Providers + +------+ + | Care Secretary Bookkeeper Name | Role | Phone | [...] pt's living/support | | | | Road [place], [place] | [place], [place] | situation) | | | | [address] | [address] | | | | | [phone] | | | +--------+ + + + [...] Denise | | | | | | [place] | | | | | | [address] | | | | | | [phone] | | | | | | | | +--------+ + + + + documented as of this encounter Visit Diagnoses Not on filedocumented in this encounter"
--- OUTSIDE RECORDS SUMMARY | ~2018-07-18 | XMS | Encounter Summary ---
Demographics + + + | Address | [address] | | | [place] [address] [...] | | | | | [place] [address] | | + + + + + | Thania Mallory | ECON | [address] | | | | | [place] [address] | | + + + + + | Deidra Weldon | ECON | [address] | | | | | [place] | | | | | [address] | | + + + + + [...] (Delisting) | | | | [address] [facility] | [facility] | | | | | Road [place], [place] | [place], [place] | | | | | [address] | [address] | | | | | [phone] | | | +--------+ + + + [...] Denise | | | | | | [place] | | | | | | [address] | | | | | | [phone] | | | | | | | | +--------+ + + + + documented as of this encounter Visit Diagnoses Not on filedocumented in this encounter"
--- OUTSIDE RECORDS SUMMARY | ~2018-07-18 | XMS | Encounter Summary ---
Demographics + + + | Address | [address] | | | [place] [address] | + + + | Home Phone [...] | | | | | [place] [address] | | + + + + + | Thania Mallory | ECON | [address] | | | | | [place] [address] | | + + + + + | Deidra Weldon | ECON | [address] | | | | | [place] | | | | | [address] | | + + + + + Care Team Providers + +------+ + | Care Splash Line Operator Name | Role | Phone | [...] | | | | [address] [facility] [place] | [facility] | | | | | Road [place], [place] | [place], [place] | | | | | [address] | [address] | | | | | [phone] | | | +--------+ + + + [...] Denise | | | | | | [place] | | | | | | [address] | | | | | | [phone] | | | | | | | | +--------+ + + + + documented as of this encounter Visit Diagnoses Not on filedocumented in this encounter"
--- OUTSIDE RECORDS SUMMARY | ~2018-07-18 | XMS | Encounter Summary ---
Demographics + + + | Address | [address] | | | [place] [address] | + + + | Home Phone [...] | | | | | [place] [address] | | + + + + + | Deidra Weldon | ECON | [address] | | | | | [place] | | | | | [address] | | + + + + + Care Team Providers + +------+ + | Care Otolaryngologist Name | Role | Phone | + [...] | lab/Provider | | | | Road [place], [place] | [place], [place] | updated) | | | | [address] | [address] | | | | | [phone] | [phone] | | | | | | | [...] Denise | | | | | | [place] | | | | | | [address] | | | | | | [phone] | | | | | | | | +--------+ + + + + documented as of this encounter Visit Diagnoses Not on filedocumented in this encounter"
--- OUTSIDE RECORDS SUMMARY | ~2018-07-18 | XMS | Encounter Summary ---
Demographics + + + | Address | [address] | | | [place] [address] | + + + | Home Phone [...] | | | | | [place] [address] | | + + + + + | Thania Mallory | ECON | [address] | | | | | [place] [address] | | + + + + + | Deidra Weldon | ECON | [address] | | | | | [place] | | | | | [address] | | + + + + + Care Team Providers + +------+ + | Care Network Developer Name | Role | Phone | [...] issues with | | | | Road [place], [place] | [place], [place] | pt's dad) | | | | [address] | [address] | | | | | [phone] | | | +--------+ + + + [...] [place] | | | | | | [address] | | | | | | [phone] | | | | | | | | +--------+ + + + + documented as of this encounter Visit Diagnoses Not on filedocumented in this encounter"
--- OUTSIDE RECORDS SUMMARY | ~2018-07-18 | XMS | Encounter Summary ---
Demographics + + + | Address | [address] [address] [address] | | | [place] [address] | + + + | Home Phone [...] | | | | | [place] [address] | | + + + + + | Thania Mallory | ECON | [address] | | | | | [place] [address] | | + + + + + | Deidra Weldon | ECON | [address] | | | | | [place] | | | | | [address] | | + + + + + Care Team Providers + +------+ + | Care Envelope Machine Adjuster Name | Role | Phone [...] Update | | | | [facility] | [facility] | | | | | Road [place], [place] | [place], [place] | | | | | [address] | [address] | | | | | [phone] | | | +--------+ + + + [...] Denise | | | | | | [place], [place] | | | | | | [address] | | | | | | [phone] | | | | | | | | +--------+ + + + + documented as of this encounter Visit Diagnoses Not on filedocumented in this encounter"
--- OUTSIDE RECORDS SUMMARY | ~2018-07-18 | XMS | Encounter Summary ---
Demographics + + + | Address | [address] | | | [place] [address] | + + + | Home Phone [...] | | | | | [place] [address] | | + + + + + | Thania Mallory | ECON | [address] | | | | | [place] [address] | | + + + + + | Deidra Weldon | ECON | [address] | | | | | [place] | | | | | [address] | | + + + + + Care Team Providers + +------+ + | Care Portable Track Line Marker Name | Role | Phone | [...] pt's living/support | | | | Road [place], [place] | [place], [place] | situation) | | | | [address] | [address] | | | | | [phone] | | | +--------+ + + + [...] Denise | | | | | | [place] | | | | | | [address] | | | | | | [phone] | | | | | | | | +--------+ + + + + documented as of this encounter Visit Diagnoses Not on filedocumented in this encounter"
--- OUTSIDE RECORDS SUMMARY | ~2018-07-18 | XMS | Encounter Summary ---
Demographics + + + | Address | [address] | | | [place] [address] | + + + | Home Phone [...] | | | | | [place] [address] | | + + + + + | Thania Mallory | ECON | [address] | | | | | [place] [address] | | + + + + + | Deidra Weldon | ECON | [address] | | | | | [place] | | | | | [address] | | + + + + + Care Team Providers + +------+ + | Care C Iron Worker Name | Role | Phone | [...] | Update | | | | [facility] | [facility] | | | | | Road [place], [place] | [place], [place] | | | | | [address] | [address] | | | | | [phone] | | | +--------+ + + + [...] Denise | | | | | | [place] | | | | | | [address] | | | | | | [phone] | | | | | | | | +--------+ + + + + documented as of this encounter Visit Diagnoses Not on filedocumented in this encounter"
--- OUTSIDE RECORDS SUMMARY | ~2018-07-18 | XMS | Encounter Summary ---
Demographics + + + | Address | [address] | | | [place] [address] | + + + | Home Phone [...] | Author | [facility] | | | and Josephana | + + + | Organization | [facility] | | [...] + +------+ + | Care Home Health Care Coordinator Name | Role | Phone [...] to | | | obtain one in [place]. I explained that we would have to [...] [address] [place] | [place] [address] | called her back to | | | | [address] | [phone] | complete intake | | | | [address] | | questionnaire. She | | | | [phone] | | currently ingests | | | [...] | | | | | one in [place]. I | | | | | | [...] she would have to obtain one in [place]. I explained that we would have to [...]
--- OUTSIDE RECORDS SUMMARY | ~2018-07-18 | XMS | Encounter Summary ---
Demographics + + + | Address | [address] | | | [place] [address] | + + + | Home Phone [...] | | | | | [place] [address] | | + + + + + | Thania Mallory | ECON | [address] | | | | | [place] [address] | | + + + + + | Deidra Weldon | ECON | [address] | | | | | [place] | | | | | [address] | | + + + + + Care Team Providers + +------+ + | Care Street Light Servicer Name | Role | Phone | [...] | ABO) | | | | [facility] | [facility] | | | | | Road [place], [place] | [place], [place] | | | | | [address] | [address] | | | | | [phone] | | | +--------+ + + + [...] Denise | | | | | | [place], [place] | | | | | | [address] | | | | | | [phone] | | | | | | | [...] + + | [facility] - | [address] | [place] | [phone] | | [place] | | | | + + + + + documented in this encounter Visit Diagnoses Not on filedocumented in this encounter"
--- OUTSIDE RECORDS SUMMARY | ~2018-07-18 | XMS | Encounter Summary ---
Demographics + + + | Address | [address] | | | [place] [address] | + + + | Home Phone [...] | | | | | [place] [address] | | + + + + + | Thania Mallory | ECON | [address] | | | | | [place] [address] | | + + + + + | Deidra Weldon | ECON | [address] | | | | | [place] | | | | | [address] | | + + + + + Care Team Providers + +------+ + | Care Director Of Marketing Operations Name | Role | Phone | [...] [address] | RN [address] [facility] | | | | | [address] [facility] | [facility] | | | | | Road [place], [place] | [place], [place] | | | | | [address] | [address] | | | | | [phone] | | | +--------+ + + + [...] Denise | | | | | | [place] | | | | | | [address] | | | | | | [phone] | | | | | | | | +--------+ + + + + documented as of this encounter Visit Diagnoses Not on filedocumented in this encounter"
--- OUTSIDE RECORDS SUMMARY | ~2018-07-18 | XMS | Encounter Summary ---
Demographics + + + | Address | [address] | | | [place] [address] | + + + | Home Phone [...] + + + | Author | [employer] | + + + | Organization | [facility] | + + + [...] Team Providers + +------+ + | Care Mult Au Matic Operator Name | Role | Phone | [...] | | Internal | Diagnoses | | [facility] | | | | Medicine | Acute | | [facility] [place] | | | | | respiratory | | [address] | | | | | distress | | [address] | | | | | Other | | [place], [place] | | | | | ascites | | [address] Phone: | | | | | Pleural | | [phone] | | | | | effusion on | | Fax: | | | | | right Chest | | [phone] | | | | | pain, | | | | | | | unspecified | | | | | | | type | | | +--------+--------+ + + + + Encounter Details +--------+ + + + + | Date | Type | Department | Care Team | Description | +--------+ + + + + | 05/26/ | Hospital | [facility] | Aneudy Hunter, | Pleural effusion on | | 2019 - | Encounter | [address] | MD [address] | right (Primary Dx); | | | | [facility] | [place] [address] | Chest pain, | | 06/01/ | | [address] | [phone] [place], | unspecified type; | | 2019 | | [place] [address] | MD [place] [address] | Other ascites; Acute | | | | [phone] | [address] | respiratory | | | | | [place] [address] | distress; End-stage | | | | | [phone] | renal disease on | | | | | | hemodialysis (HCC); | | | | | Anthony Belcher MD | Hyperkalemia; | | | | | [address] | Hyperphosphatemia; | | | | | [place] [address] | At high risk for | | | | | [phone] | electrolyte | | | | | | imbalance; Acute | | | | | Darell Kowalski MD | systolic CHF | | | | | [address] | (congestive heart | | | | | [place] [address] | failure) ([facility]); | | | | | [phone] | Hypoalbuminemia; | | | | | [...] note may be different from pierre coleman. [facility] Service: Hospitalist [...] 17. The mitral valve is normal. 18. Dnjk-kr-uvaav ate eccentric mitral regurgitation is present. 19. [...] anemia of chronic disease who went to [facility] with increasing shortness of breath found to have right pleural effusion who was transfer red to [facility] underwent right-sided diagnostic and therapeutic thoracocentesis [...] hyperkalemia with that. I discussed with the floor cashier as well regarding not being on [place]/ARB. [...] Component Value Units Date/Time Culture, Body Fluid [[id number]] Collected: 05/26/18 1412 Specimen: Body Fluid from Pleural Fluid Updated: 05/30/18 0733 Specimen Description PLEURAL FLUID GRAM STAIN WBC'S SEEN GRAM STAIN NO ORGANISMS SEEN GRAM STAIN STAIN PERFORMED ON CYTOSPIN CULTURE NO GROWTH 4 DAYS Culture, Body Fluid [[id number]] Collected: 05/26/18 1513 Specimen: Other from Ascites Fluid Updated: 05/30/18 0732 Specimen Description ASCITES FLUID GRAM STAIN STAIN PERFORMED ON CYTOSPIN GRAM STAIN WBC'S SEEN GRAM STAIN NO EPITHELIAL CELLS SEEN GRAM STAIN NO ORGANISMS SEEN CULTURE NO GROWTH 4 DAYS Gram stain [[id number]] Collected: 05/29/18 1256 Specimen: Sputum from Thoracic Fluid Updated: 05/29/18 9048 Specimen Description THORACIC FLUID CULTURE 1+ WBC'S SEEN NO ORGANISMS SEEN Lactate dehydrogenase, body fluid [[id number]] Collected: 05/29/18 1256 Specimen: Body Fluid from Pleural, Right Updated: 05/29/18 1619 FLUID LDH 151 U/L Cholesterol, body fluid [[id number]] Collected: 05/29/18 1256 Specimen: Body Fluid from [...] [address] [place] [address] In 1 week Carolina Mahmood, DO [address] [place] [id number] In 1 week Daniela Ibarra MD [address] [facility] [id number] In 1 week Discharge took more than 35 minutes, to include final examination, discussion of admission, and preparation of prescriptions, instructions for ongoing care, follow up and dictation of summary. Signed: DARELL KOWALSKI MD 06/01/2018 9:59 AM Dictation software, [employer], used which may contain error for [...] may be different fro m the original. [facility] Department of Respiratory Skilled Nursing Oxygen Evaluation [...] A VALID ORDER Physician Signature: Date: Time: nAtonio Pabon MD - 06/01/2018 10:52 AM PDTFormatting of this note may be different from the original. [facility] Service: NEPHROLOGY Dialysis/ Progress Note Dara Louise 23 y.o. [id number] female [facility] Day: LOS: 6 days Patient [...] FISTULA; Surgeon: Rik Simon MD; Location: [facility] OR; Service: Vascula r; Laterality: Left; cephalic AV FISTULA REPAIR Left 03/07/2014 Procedure: AV FISTULA - GRAFT REPAIR/REVISION; Surgeon: Rik Simon MD; Location: [facility] OR; Service: Vascular; Laterality: Left; DECLOT GRAFT Left 03/07/2014 Procedure: GRAFT - DECLOT; Surgeon: Rik Simon MD; Location: [facility] OR; Service: Vas cular; Laterality: Left; [...] - SUPERFICIALIZATION; Surgeon: Rik Simon MD; Location: [facility] OR; Service: Vascular; Laterality: Left; History [...] 17. The mitral valve is normal. 18. Pftx-nt-kvfwalhx eccentric mitral regurgitation i s present. 19. [...] mitral valve is normal. Mitral Kait ve: Ilip-nn-udqswwgc eccentric mitral regurgitation is present. Tricuspid Valve: [...] maxP.08 mmHg TR Vmax: 2.7 4 m/s Rn Tele: MOO Authenticated by: Robel Yusuf MD Report [...] 17. The mitral valve is normal. 18. Hxwd-ed-ddkyo ate eccentric mitral regurgitation is present. 19. [...] pleural spac e is punctured with an 8-Swedish thoracentesis catheter. Fluid is aspirated without complicat [...] earlier and charting completed later Dictation software, [employer], used which may contain error for [...] pneumonia at [facility] ED. Was throwing up & could not [...] the prelim submitted orders, MWF No acute BUCKLE FRAME SHAPER indication ESTEFANY as indicated with HD Protein [...] may be different from pierre quarles original. [facility] Service: Hospitalist Progress Note Pt: Dara Louise AGE/SEX: 23 y.o. female ROOM: 4441/4441-1 : 1995 PCP: TIEN NICHOLSON ADMIT DATE: 05/26/2018 TODAY'S DATE: 05/31/2018 Hospital Day/Hospital Course: LOS: [address] Belcher 23-year-old female with past medical history of end-stage renal disease on hemodialysis Mon, hypertension, anemia of chronic disease who went to [facility] with increasing shortness of breath found to have right pleural effusion who was transfer red to [facility] underwent right-sided diagnostic and therapeutic thoracocentesis [...] Component Value Units Date/Time Culture, Body Fluid [[id number]] Collected: 05/26/18 1412 Specimen: Body Fluid from Pleural Fluid Updated: 05/30/18 0733 Specimen Description PLEURAL FLUID GRAM STAIN WBC'S SEEN GRAM STAIN NO ORGANISMS SEEN GRAM STAIN STAIN PERFORMED ON CYTOSPIN CULTURE NO GROWTH 4 DAYS Culture, Body Fluid [[id number]] Collected: 05/26/18 1513 Specimen: Other from Ascites Fluid Updated: 05/30/18 0732 Specimen Description ASCITES FLUID GRAM STAIN STAIN PERFORMED ON CYTOSPIN GRAM STAIN WBC'S SEEN GRAM STAIN NO EPITHELIAL CELLS SEEN GRAM STAIN NO ORGANISMS SEEN CULTURE NO GROWTH 4 DAYS Gram stain [[id number]] Collected: 05/29/18 1256 Specimen: Sputum from Thoracic Fluid Updated: 05/29/18 2339 Specimen Description THORACIC FLUID CULTURE 1+ WBC'S SEEN NO ORGANISMS SEEN Lactate dehydrogenase, body fluid [[id number]] Collected: 05/29/18 1256 Specimen: Body Fluid from Pleural, Right Updated: 05/29/18 1619 FLUID LDH 151 U/L Cholesterol, body fluid [[id number]] Collected: 05/29/18 125 Specimen: Body Fluid from Pleural, Right Updated: 05/29/18 1619 FLUID CHOLESTEROL 56 mg/dL Sputum culture [[id number]] Collected: 05/27/182014 Specimen: Sputum from Sputum Updated: [...] 17. The mitral valve is normal. 18. Nyly-se-vjbhm ate eccentric mitral regurgitation is present. 19. [...] anemia of chronic disease who went to [facility] with increasing shortness of breath due to acute congestive heart failure Acute systolic congestive heart failure with Pleural Effusion: Admitted with acute systolic congestive heart failure with bilateral pleural effusion stat us post thoracentesis 2. Her breathing has improved. She is talking to me appropriately. N ot in any kind of distress. mountain services manager to initiate the discharge plan. [...] MD, FACP 05/31/2018 9:42 AM Dictation software, [employer], used which may contain error for similar sounding words even af ter review. Personal communication requested for any clarification. Portions of this chart may have been copied from previous notes for continuity of care purp Darell Segundo MD - 05/30/2018 9:09 AM PDTFormatting of this note may be different from pierre quarles original. [facility] Service: Hospitalist Progress Note Pt: Dara Louise AGE/SEX: 23 y.o. female ROOM: [facility]- : 1995 PCP: TIEN NICHOLSON ADMIT DATE: 05/26/2018 TODAY'S DATE: 05/30/2018 Hospital Day/Hospital Course: LOS: [address] Belcher 23-year-old female with past medical history of end-stage renal disease on hemodialysis Mon day Monday, hypertension, anemia of chronic disease who went to [facility] with increasing shortness of breath found to have right pleural effusion who was transfer red to [facility] underwent right-sided diagnostic and therapeutic thoracocentesis [...] Component Value Units Date/Time Culture, Body Fluid [[id number]] Collected: 05/26/18 1412 Specimen: Body Fluid from Pleural Fluid Updated: 05/30/18 0733 Specimen Description PLEURAL FLUID GRAM STAIN WBC'S SEEN GRAM STAIN NO ORGANISMS SEEN GRAM STAIN STAIN PERFORMED ON CYTOSPIN CULTURE NO GROWTH 4 DAYS Culture, Body Fluid [[id number]] Collected: 05/26/18 1513 Specimen: Other from Ascites Fluid Updated: 05/30/18 0732 Specimen Description ASCITES FLUID GRAM STAIN STAIN PERFORMED ON CYTOSPIN GRAM STAIN WBC'S SEEN GRAM STAIN NO EPITHELIAL CELLS SEEN GRAM STAIN NO ORGANISMS SEEN CULTURE NO GROWTH 4 DAYS Gram stain [[id number]] Collected: 05/29/18 1256 Specimen: Sputum from Thoracic Fluid Updated: 05/29/18 2339 Specimen Description THORACIC FLUID CULTURE 1+ WBC'S SEEN NO ORGANISMS SEEN Lactate dehydrogenase, body fluid [[id number]] Collected: 05/29/18 1256 Specimen: Body Fluid from Pleural, Right Updated: 05/29/18 1619 FLUID LDH 151 U/L Cholesterol, body fluid [[id number]] Collected: 05/29/18 1256 Specimen: Body Fluid from Pleural, Right Updated: 05/29/18 1619 FLUID CHOLESTEROL 56 mg/dL Sputum culture [[id number]] Collected: 05/27/182014 Specimen: Sputum from Sputum Updated: [...] 17. The mitral valve is normal. 18. Yyrr-yf-cbelc ate eccentric mitral regurgitation is present. 19. [...] anemia of chronic disease who went to [facility] with increasing shortness of breath [...] MD, FACP 05/30/2018 9:10 AM Dictation software, [employer], used which may contain error for similar sounding words even af ter review. Personal communication requested for any clarification. Portions of this chart may have been copied from previous notes for continuity of care purp Carolina Camarillo, DO - 05/29/2018 7:56 PM PDTFormatting of this note may be different from th e original. [facility] Service: Cardiology Progress Note Hospital [...] Hospitalist Progress Note Dara Louise 23 y.o. [id number] 4441/[id number] female [facility] Day: LOS: 3 days Patient Summary: 23-year-old female with past medical history of end-stage renal dis ease on hemodialysis Monday, hypertension, anemia of chronic disease who we nt to [facility] with increasing shortness of breath found to have right pleural e ffusion who was transferred to [facility] underwent right-sided diagnostic and therapeu tic [...] Value Units Date/Time Lactate dehydrogenase, body fluid [[id number]] Collected: 05/29/18 1256 Specimen: Body Fluid from Pleural, Right Updated: 05/29/18 1315 Cholesterol, body fluid [[id number]] Collected: 05/29/18 1256 Specimen: Body Fluid from Pleural, Right Updated: 05/29/18 1315 Gram stain [[id number]] Collected: 05/29/18 1256 Specimen: Sputum from OTHR-w source desc (F6) Updated: 05/29/18 1309 Sputum culture [[id number]] Collected: 05/27/182014 Specimen: Sputum from Sputum Updated: 05/29/18 0947 Specimen Description SPUTUM GRAM STAIN LESS THAN 10 WBCS/LPF GRAM STAIN LESS THAN 10 SEC/LPF GRAM STAIN NO ORGANISMS SEEN CULTURE 1+ NORMAL UPPER RESPIRATORY ALESSANDRO HIV 1/2 Ab reflex [[id number]] Collected: 05/28/18 1236 Specimen: Blood Updated: 05/29/18 0942 HIV1/HIV2 NON REACTIVE Protime-INR [[id number]] Collected: 05/29/18 0852 Specimen: Blood Updated: 05/29/18 0940 INR 1.5 APTT [[id number]] Collected: 05/29/18 0852 Specimen: Blood Updated: 05/29/18939 APTT 29 seconds Culture, Body Fluid [[id number]] Collected: 05/26/18 1513 Specimen: Other from Ascites Fluid Updated: 05/29/18 09 Specimen Description ASCITES FLUID GRAM STAIN STAIN PERFORMED ON CYTOSPIN GRAM STAIN WBC'S SEEN GRAM STAIN NO EPITHELIAL CELLS SEEN GRAM STAIN NO ORGANISMS SEEN CULTURE NO GROWTH 3 DAYS Culture, Body Fluid [[id number]] Collected: 05/26/18 1412 Specimen: Body Fluid from Pleural Fluid Updated: 05/29/18917 Specimen Description PLEURAL FLUID CULTURE NO GROWTH 3 DAYS Comprehensive metabolic panel [[id number]] (Abnormal) Collected: 05/29/18456 Specimen: Blood Updated: 05/29/18615 [...] mL/min/1.73m2 CBC W/Auto Diff (Reflex to Manual) [[id number]] (Abnormal) Collected: 05/29/18456 Specimen: Blood Updated: 05/29/18612 [...] 0.05 K/uL MORPHOLOGY 2+ hCG, serum, qualitative [[id number]] Collected: 05/28/18922 Specimen: Blood Updated: 05/28/18 1950 TEST,SERUM NEGATIVE C-reactive protein [[id number]] (Abnormal) Collected: 05/28/18922 Specimen: Blood Updated: 05/28/18 1941 CRP 5.1 (H) mg/dL Sedimentation rate, automated [[id number]] Collected: 05/28/18922 Specimen: Blood Updated: 05/28/18 1734 ESR 2 mm/Hr Hepatitis panel,acute [[id number]] Collected: 05/28/18 1236 Specimen: Blood Updated: 05/28/18 1650 HAV AB,IGM NON REACTIVE HEP B SURFACE AG NON REACTIVE ANTI HEP B CORE,IGM NON REACTIVE HEPATITIS C NON REACTIVE HEPATITIS INTERP No serologic evidence of HAV, HBV, or HCV infection. Troponin I [[id number]] Collected: 05/28/18922 Specimen: Blood Updated: 05/28/18 1437 TROPONIN I 0.034 ng/mL Troponin I [[id number]] Collected: 05/28/18 1359 Specimen: Blood Updated: 05/28/18 1437 TROPONIN I 0.037 ng/mL Renal function panel [[id number]] (Abnormal) Collected: 05/28/18 1209 Specimen: Blood from Blood Updated: 05/28/18 1302 SODIUM 141 mmol/L POTASSIUM 4.3 mmol/L CHLORIDE 101 mmol/L CO2 29 mmol/L ANION GAP AGAP 15 mmol/L GLUCOSE 78 mg/dL BUN 43 (H) mg/dL CREATININE 7.97 (H) mg/dL CALCIUM 9.1 mg/dL Albumin 3.6 g/dL PHOSPHORUS 6.3 (H) mg/dL EGFR 6 (L) mL/min/1.73m2 CBC W/Auto Diff (Reflex to Manual) [[id number]] (Abnormal) Collected: 05/28/18922 Specimen: Blood Updated: 05/28/18 [...] 0.05 K/uL MORPHOLOGY 1+ Comprehensive metabolic panel [[id number]] (Abnormal) Collected: 05/28/18922 Specimen: Blood Updated: 05/28/18 [...] (H) U/L EGFR 6 (L) mL/min/1.73m2 TSH [[id number]] Collected: 05/28/18922 Specimen: Blood Updated: 05/28/18 1210 TSH 1.270 uIU/mL Pathologist consult [[id number]] Collected: 05/26/18 1412 Updated: 05/28/18 1113 Pathologist Consult -- Hepatitis panel, chronic [[id number]] (Abnormal) Collected: 05/27/18 1758 Updated: 05/27/18 2031 Hep A Total Ab REACTIVE (A) HEP B SURFACE AG NON REACTIVE HEP B CORE AB,TOTAL NON REACTIVE HEP B SURFACE ANTIBODY 3.27 (H) IV HEPATITIS C NON REACTIVE HEPATITIS INTERP Current or past HAV infection. Past HBV infection or vaccination. No ser ologic evidence of HCV infection. CBC w/auto diff (reflex to manual) [[id number]] (Abnormal) Collected: 05/27/18 0425 Specimen: Blood Updated: [...] K/uL MORPHOLOGY 2+ Platelet Estimate DECREASED Phosphorus [[id number]] (Abnormal) Collected: 05/27/18424 Specimen: Blood Updated: 05/27/18628 PHOSPHORUS 8.0 (H) mg/dL Basic Metabolic Panel [[id number]] (Abnormal) Collected: 05/27/18424 Specimen: Blood Updated: 05/27/18628 SODIUM 135 mmol/L POTASSIUM 5.9 (H) mmol/L CHLORIDE 96 (L) mmol/L CO2 25 mmol/L ANION GAP AGAP 20 mmol/L GLUCOSE 74 mg/dL BUN 51 (H) mg/dL CREATININE 9.2 (H) mg/dL BUN/CREAT 6 CALCIUM 9.4 mg/dL EGFR 5 (L) mL/min/1.73m2 Magnesium [[id number]] (Abnormal) Collected: 05/27/18424 Specimen: Blood Updated: 05/27/1829 MAGNESIUM 2.7 (H) mg/dL Brain natriuretic peptide [[id number]] (Abnormal) Collected: 05/27/18424 Specimen: Blood Updated: 05/27/18 0546 BRAIN NATRIURETIC PEPTIDE 1,153.92 (H) pg/mL Respiratory Filmarray [[id number]] (Abnormal) Collected: 05/26/181805 Specimen: Nasopharynx/Oropharynx Updated: 05/26/182141 [...] performed by Molecular Methodology MRSA by PCR [[id number]] Collected: 05/26/18 180 Specimen: Nasopharyngeal from Nares(Nose) Updated: 05/26/182025 SOURCE NARES(NOSE) MRSA PCR NEGATIVE Procalcitonin [[id number]] (Abnormal) Collected: 05/26/18 1727 Updated: 05/26/18 1839 PROCALCITONIN 0.76 (H) ng/mL Albumin, Body Fluid [[id number]] Collected: 05/26/181411 Specimen: Body Fluid from Lung, Right Lower Lobe Updated: 05/26/181728 FLUID ALBUMIN 2.3 g/dL Total Protein, Body Fluid [[id number]] Collected: 05/26/181411 Specimen: Body Fluid from Lung, Right Lower Lobe Updated: 05/26/181728 FLUID TOTAL PROTEIN 4.2 g/dL FLUID TP SOURCE PLEURAL FLUID Cell count, Body Fluid [[id number]] Collected: 05/26/181411 Specimen: Body Fluid from Lung, Right Lower Lobe Updated: 05/26/18 170 FLUID TYPE PLEURAL FLUID COLOR SAMMIE APPEARANCE CLOUDY RBC'S 3,000 /mm3 TOTAL NUCLEATED CELLS 253 /mm3 NEUTROPHILS 22 % LYMPHOCYTES 8 % MONOCYTES/MACROPHAGES 65 % Mesothelial Cells 5 % CELLS COUNTED 100 pH, Body Fluid [[id number]] Collected: 05/26/181411 Specimen: Body Fluid from Lung, [...] 17. The mitral valve is normal. 18. Sued-ds-hmrhuvrq eccentric mitral regurgitation i s present. 19. [...] mitral valve is normal. Mitral Kait ve: Kzza-dw-xhqtclxk eccentric mitral regurgitation is present. Tricuspid Valve: [...] maxP.08 mmHg TR Vmax: 2.7 4 m/s Rn Tele: MOO Authenticated by: Robel Yusuf MD Report [...] 17. The mitral valve is normal. 18. Rrfj-ka-ebpgu ate eccentric mitral regurgitation is present. 19. [...] pneumonia at [facility] ED. Was throwing up & could not [...] the prelim submitted orders, MWF No acute BUCKLE FRAME SHAPER indication ESTEFANY as indicated with HD Protein [...] Hospitalist Progress Note Dara Louise 23 y.o. [id number] female [facility] Day: LOS: 2 days Patient Summary: 23-year-old female with past medical history of end-stage renal dis ease on hemodialysis Monday, hypertension, anemia of chronic disease who we nt to [facility] with increasing shortness of breath found to have right pleural e ffusion who was transferred to [facility] underwent right-sided diagnostic and therapeu tic [...] Component Value Units Date/Time Culture, Body Fluid [[id number]] Collected: 05/26/18 1513 Specimen: Other from Ascites Fluid Updated: 05/28/18 1225 Specimen Description ASCITES FLUID GRAM STAIN STAIN PERFORMED ON CYTOSPIN GRAM STAIN WBC'S SEEN GRAM STAIN NO EPITHELIAL CELLS SEEN GRAM STAIN NO ORGANISMS SEEN CULTURE NO GROWTH 2 DAYS Culture, Body Fluid [[id number]] Collected: 05/26/18 1412 Specimen: Body Fluid from Pleural Fluid Updated: 05/28/18 1223 Specimen Description PLEURAL FLUID CULTURE NO GROWTH 2 DAYS Comprehensive metabolic panel [[id number]] (Abnormal) Collected: 05/28/18 0923 Specimen: Blood Updated: [...] (H) U/L EGFR 6 (L) mL/min/1.73m2 TSH [[id number]] Collected: 05/28/18922 Specimen: Blood Updated: 05/28/18 1210 TSH 1.270 uIU/mL Pathologist consult [[id number]] Collected: 05/26/18 1412 Updated: 05/28/18 1113 Pathologist Consult -- Troponin I [[id number]] Collected: 05/28/18922 Specimen: Blood Updated: 05/28/18 1055 CBC W/Auto Diff (Reflex to Manual) [[id number]] Collected: 05/28/18922 Specimen: Blood Updated: 05/28/18938 Sputum culture [[id number]] Collected: 05/27/182014 Specimen: Sputum from Sputum Updated: 05/28/18902 Specimen Description SPUTUM GRAM STAIN LESS THAN 10 WBCS/LPF GRAM STAIN LESS THAN 10 SEC/LPF GRAM STAIN NO ORGANISMS SEEN CULTURE CULTURE IN PROGRESS Hepatitis panel, chronic [[id number]] (Abnormal) Collected: 05/27/18 1758 Updated: 05/27/182030 Hep A Total Ab REACTIVE (A) HEP B SURFACE AG NON REACTIVE HEP B CORE AB,TOTAL NON REACTIVE HEP B SURFACE ANTIBODY 3.27 (H) IV HEPATITIS C NON REACTIVE HEPATITIS INTERP Current or past HAV infection. Past HBV infection or vaccination. No ser ologic evidence of HCV infection. CBC w/auto diff (reflex to manual) [[id number]] (Abnormal) Collected: 05/27/18 0425 Specimen: Blood Updated: [...] K/uL MORPHOLOGY 2+ Platelet Estimate DECREASED Phosphorus [[id number]] (Abnormal) Collected: 05/27/18424 Specimen: Blood Updated: 05/27/18628 PHOSPHORUS 8.0 (H) mg/dL Basic Metabolic Panel [[id number]] (Abnormal) Collected: 05/27/18424 Specimen: Blood Updated: 05/27/18628 SODIUM 135 mmol/L POTASSIUM 5.9 (H) mmol/L CHLORIDE 96 (L) mmol/L CO2 25 mmol/L ANION GAP AGAP 20 mmol/L GLUCOSE 74 mg/dL BUN 51 (H) mg/dL CREATININE 9.2 (H) mg/dL BUN/CREAT 6 CALCIUM 9.4 mg/dL EGFR 5 (L) mL/min/1.73m2 Magnesium [[id number]] (Abnormal) Collected: 05/27/18424 Specimen: Blood Updated: 05/27/18628 MAGNESIUM 2.7 (H) mg/dL Brain natriuretic peptide [[id number]] (Abnormal) Collected: 05/27/18424 Specimen: Blood Updated: 05/27/1846 BRAIN NATRIURETIC PEPTIDE 1,153.92 (H) pg/mL Respiratory Filmarray [[id number]] (Abnormal) Collected: 05/26/181805 Specimen: Nasopharynx/Oropharynx Updated: 05/26/182141 [...] performed by Molecular Methodology MRSA by PCR [[id number]] Collected: 03/23/19 1806 Specimen: Nasopharyngeal from Nares(Nose) Updated: 05/26/18 2026 SOURCE NARES(NOSE) MRSA PCR NEGATIVE Procalcitonin [[id number]] (Abnormal) Collected: 05/26/18 1727 Updated: 05/26/18 1839 PROCALCITONIN 0.76 (H) ng/mL Albumin, Body Fluid [[id number]] Collected: 05/26/18 141 Specimen: Body Fluid from Lung, Right Lower Lobe Updated: 05/26/18 172 FLUID ALBUMIN 2.3 g/dL Total Protein, Body Fluid [[id number]] Collected: 05/26/18 141 Specimen: Body Fluid from Lung, Right Lower Lobe Updated: 05/26/181728 FLUID TOTAL PROTEIN 4.2 g/dL FLUID TP SOURCE PLEURAL FLUID Cell count, Body Fluid [[id number]] Collected: 05/26/18 141 Specimen: Body Fluid from Lung, Right Lower Lobe Updated: 05/26/18 1708 FLUID TYPE PLEURAL FLUID COLOR SAMMIE APPEARANCE CLOUDY RBC'S 3,000 /mm3 TOTAL NUCLEATED CELLS 253 /mm3 NEUTROPHILS 22 % LYMPHOCYTES 8 % MONOCYTES/MACROPHAGES 65 % Mesothelial Cells 5 % CELLS COUNTED 100 pH, Body Fluid [[id number]] Collected: 05/26/18 141 Specimen: Body Fluid from Lung, Right Lower Lobe Updated: 05/26/18 1508 FLUID PH 7.45 Procalcitonin [[id number]] (Abnormal) Collected: 05/26/18 1214 Updated: 05/26/18 1330 PROCALCITONIN 0.56 (H) ng/mL Cardiac Panel [[id number]] (Abnormal) Collected: 05/26/18 1214 Updated: 05/26/18 1312 [...] ng/mL CK-MB Index 2.7 Brain natriuretic peptide [[id number]] (Abnormal) Collected: 05/26/18 1214 Updated: 05/26/18 1254 [...] radiologist report and is used for image [employer] only Echo Cardiac Adult Complete Result Date: [...] 17. The mitral valve is normal. 18. Yooc-xq-kdpfghkj eccentric mitral regurgitation i s present. 19. [...] mitral valve is normal. Mitral Kait ve: Icbo-zs-vaeqrpao eccentric mitral regurgitation is present. Tricuspid Valve: [...] maxP.08 mmHg TR Vmax: 2.7 4 m/s Rn Tele: MOO Authenticated by: Robel Yusuf MD Report [...] 17. The mitral valve is normal. 18. Ypjy-ua-mrkso ate eccentric mitral regurgitation is present. 19. [...] Hospitalist Progress Note Dara Louise 23 y.o. [id number] female [facility] Day: LOS: 1 day Patient Summary: 23-year-old female with past medical history of end-stage renal dis ease on hemodialysis Monday, hypertension, anemia of chronic disease who we nt to [facility] with increasing shortness of breath found to have right pleural e ffusion who was transferred to [facility] underwent right-sided diagnostic and therapeu tic [...] Date/Time CBC w/auto diff (reflex to manual) [[id number]] (Abnormal) Collected: 05/27/18424 Specimen: Blood Updated: 05/27/18710 [...] K/uL MORPHOLOGY 2+ Platelet Estimate DECREASED Phosphorus [[id number]] (Abnormal) Collected: 05/27/18424 Specimen: Blood Updated: 05/27/18 06 PHOSPHORUS 8.0 (H) mg/dL Basic Metabolic Panel [[id number]] (Abnormal) Collected: 05/27/18424 Specimen: Blood Updated: 05/27/18628 SODIUM 135 mmol/L POTASSIUM 5.9 (H) mmol/L CHLORIDE 96 (L) mmol/L CO2 25 mmol/L ANION GAP AGAP 20 mmol/L GLUCOSE 74 mg/dL BUN 51 (H) mg/dL CREATININE 9.2 (H) mg/dL BUN/CREAT 6 CALCIUM 9.4 mg/dL EGFR 5 (L) mL/min/1.73m2 Magnesium [[id number]] (Abnormal) Collected: 05/27/18424 Specimen: Blood Updated: 05/27/1829 MAGNESIUM 2.7 (H) mg/dL Brain natriuretic peptide [[id number]] (Abnormal) Collected: 05/27/18424 Specimen: Blood Updated: 05/27/1846 BRAIN NATRIURETIC PEPTIDE 1,153.92 (H) pg/mL Respiratory Filmarray [[id number]] (Abnormal) Collected: 05/26/181805 Specimen: Nasopharynx/Oropharynx Updated: 05/26/182141 [...] performed by Molecular Methodology MRSA by PCR [[id number]] Collected: 05/26/181805 Specimen: Nasopharyngeal from Nares(Nose) Updated: 05/26/182025 SOURCE NARES(NOSE) MRSA PCR NEGATIVE Procalcitonin [[id number]] (Abnormal) Collected: 05/26/18 1727 Updated: 05/26/18 1839 PROCALCITONIN 0.76 (H) ng/mL Culture, Body Fluid [[id number]] Collected: 05/26/18 141 Specimen: Body Fluid from Pleural Fluid Updated: 05/26/18 1811 Pathologist consult [[id number]] Collected: 05/26/18 141 Updated: 05/26/18 1742 Albumin, Body Fluid [[id number]] Collected: 05/26/18 141 Specimen: Body Fluid from Lung, Right Lower Lobe Updated: 05/26/18 172 FLUID ALBUMIN 2.3 g/dL Total Protein, Body Fluid [[id number]] Collected: 05/26/18 141 Specimen: Body Fluid from Lung, Right Lower Lobe Updated: 05/26/18 172 FLUID TOTAL PROTEIN 4.2 g/dL FLUID TP SOURCE PLEURAL FLUID Cell count, Body Fluid [[id number]] Collected: 05/26/18 141 Specimen: Body Fluid from Lung, Right Lower Lobe Updated: 05/26/18 1708 FLUID TYPE PLEURAL FLUID COLOR SAMMIE APPEARANCE CLOUDY RBC'S 3,000 /mm3 TOTAL NUCLEATED CELLS 253 /mm3 NEUTROPHILS 22 % LYMPHOCYTES 8 % MONOCYTES/MACROPHAGES 65 % Mesothelial Cells 5 % CELLS COUNTED 100 Culture, Body Fluid [[id number]] Collected: 05/26/18 1513 Specimen: Other from Ascites Fluid Updated: 05/26/18 1631 Specimen Description ASCITES FLUID GRAM STAIN STAIN PERFORMED ON CYTOSPIN GRAM STAIN WBC'S SEEN GRAM STAIN NO EPITHELIAL CELLS SEEN GRAM STAIN NO ORGANISMS SEEN CULTURE PENDING pH, Body Fluid [[id number]] Collected: 05/26/18 1412 Specimen: Body Fluid from Lung, Right Lower Lobe Updated: 05/26/18 1508 FLUID PH 7.45 Procalcitonin [[id number]] (Abnormal) Collected: 05/26/18 1214 Updated: 05/26/18 1330 PROCALCITONIN 0.56 (H) ng/mL Cardiac Panel [[id number]] (Abnormal) Collected: 05/26/18 1214 Updated: 05/26/18 1312 [...] ng/mL CK-MB Index 2.7 Brain natriuretic peptide [[id number]] (Abnormal) Collected: 05/26/18 1214 Updated: 05/26/18 1254 [...] radiologist report and is used for image [employer] only PROBLEM LIST Active Problems: ESRD on [...] BELCHER MD 05/27/2018 Jae Gutierres, [facility] - 05/26/2018 6:05 PM PDTRenal [...] Álvarez | | | | | | [place] [address] | | | | | | [phone] | | | | | | | [...] | | | | | performed at [facility], [address] | | | | | [address], | | | | | [place] [address] | | | + + + + + + + | Specimen | + + | Blood | + + + + + + + | Performing | Address | City/State/Zipcode | Phone Number | | Organization | | | | + + + + + | [facility] | [address] | [place] [address] | [phone] | | LABORATORY | [address] | | [...] [address] | | | | | [employer] [address], | | | | | [place] [address] | | | | |Testing performed at L, [address], [place] [address] | | | | | | | | + + + + + + + | Specimen | + + | Blood | + + + + + + + | Performing | Address | City/State/Zipcode | Phone Number | | Organization | | | | + + + + + | [facility] | [address] | [place] [address] | [phone] | | LABORATORY | Blvd. | | [...] | >60 mL/min/1.73m2 | [facility] | | | CHRONIC KIDNEY [...] the | | | | | MDRD IDMO traceable | | | | | equation.Testing | | | | | performed at [facility], [address] | | | | | [facility], | | | | | [place] [address] | | | + + + + + + + | Specimen | + + | Blood | + + + + + + + | Performing | Address | City/State/Zipcode | Phone Number | | Organization | | | | + + + + + | [facility] | [address] | [place] [address] | [phone] | | LABORATORY | Blvd. | | [...] performed | | | | | at [facility], [address] | | | | | [employer], | | | | | [place] [address] | | | | |Testing performed at [facility], [address] [place] [address] | | | | | | | | + + + + + + + | Specimen | + + | Blood | + + + + + + + | Performing | Address | City/State/Zipcode | Phone Number | | Organization | | | | + + + + + | [facility] | [address] | [place] [address] | [phone] | | LABORATORY | Blvd. | | [...] | | | antibiotic" for pneumonia at [facility]. Was throwing up & could not [...] | | | | | performed at [facility], [address] | | | | | [facility], | | | | | [place] [address] | | | + + + + + + + | Specimen | + + | Blood | + + + + + + + | Performing | Address | City/State/Zipcode | Phone Number | | Organization | | | | + + + + + | [facility] | [address] [place] [address] | [place] [address] | [phone] | | LABORATORY | [facility]. | | | + + + + [...] performed | | | | | at [facility], [address] | | | | | [facility], | | | | | [place] [address] | | | | |Testing performed at [facility], [address] [facility], [place] [address] | | | | | | | | + + + + + + + | Specimen | + + | Blood | + + + + + + + | Performing | Address | City/State/Zipcode | Phone Number | | Organization | | | | + + + + + | [facility] | [address] | [place] [address] | [phone] | | LABORATORY | Blvd. | | [...] | + + + + + | [facility] | [address] | [place] [address] | | + + + + + Cholesterol, body fluid (05/29/2018 12:56 PM) + + + + + | Component | Value | Ref Range | Performed At | + + + + + | FLUID CHOLESTEROL | 56Comment: This is not a | mg/dL | [facility] | | | foam rubber molder validated | | LABORATORY | | | sample type for this | | | | | method. No reference | | | | | ranges have been | | | | | established.Testing | | | | | performed at [facility], [address] | | | | | [facility], | | | | | [place] [address] | | | + + + + + + + | Specimen | + + | Body Fluid - | | Pleural, Right | + + + + + + + | Performing | Address | City/State/Zipcode | Phone Number | | Organization | | | | + + + + + | [facility] | [address] [place] [address] | [place] [address] | [phone] | | LABORATORY | Blvd. | | | + + + + + Lactate dehydrogenase, body fluid (05/29/2018 12:56 PM) + + + + + | Component | Value | Ref Range | Performed At | + + + + + | FLUID LDH | 151Comment: This is not | U/L | [facility] | | | a foam rubber molder validated | | LABORATORY | | | sample type for this | | | | | method. No reference | | | | | ranges have been | | | | | established.Testing | | | | | performed at [facility], [address] | | | | | [facility], | | | | | [place] [address] | | | + + + + + + + | Specimen | + + | Body Fluid - | | Pleural, Right | + + + + + + + | Performing | Address | City/State/Zipcode | Phone Number | | Organization | | | | + + + + + | [facility] | [address] | [place] [address] | [phone] | | LABORATORY | [address] | | [...] + + + | [facility] | [address] | [place] [address] | [phone] | | LABORATORY | Blvd. | | [...] | | space is punctured with an 8-Swedish thoracentesis catheter. Fluid is | | | [...] the pleural space is punctured with an 8-Swedish | | thoracentesis catheter. Fluid is aspirated [...] | + + + + + | [facility] | [address] | [place] [address] | | + + + + + APTT (05/29/2018 8:52 AM) + + + + + | Component | Value | Ref Range | Performed At | + + + + + | APTT | 29Comment: Testing | 23 - 32 seconds | [facility] | | | performed at [facility];[address] | | | | [address] [facility];[place], [place] | | | | | [address] | | | + + + + + + + | Specimen | + + | Blood | + + + + + + + | Performing | Address | City/State/Zipcode | Phone Number | | Organization | | | | + + + + + | [facility] | [address] | [place] [address] | | + + + + + Protime-INR (05/29/2018 8:52 AM) + + + + + | Component | Value | Ref Range | Performed At | + + + + + | INR | 1.5Comment: REFERENCE | | [facility] | | | RANGE:0.9 - [...] performed at [facility] | | | | | [address];[place], [place] | | | | | [address] | | | + + + + + + + | Specimen | + + | Blood | + + + + + + + | Performing | Address | City/State/Zipcode | Phone Number | | Organization | | | | + + + + + | [facility] | [address] | [place] [address] | | + + + + + [...] 0.8 (L) | 1.0 - 2.4 | [facility] | | | | | LABORATORY | + + + + + | TBIL | 0.8Comment: SPECIMEN | 0.1 - 1.5 mg/dL | [facility] | | | SLIGHTLY HEMOLYZED | [...] | | | | | performed at [facility], [address] | | | | | [facility], | | | | | [place] [address] | | | + + + + + + + | Specimen | + + | Blood | + + + + + + + | Performing | Address | City/State/Zipcode | Phone Number | | Organization | | | | + + + + + | [facility] | [address] | [place] [address] | [phone] | | LABORATORY | [address] | | [...] [address], | | | | | [place] [address] | | | | |Testing performed at [facility], [address] [facility], [place] [address] | | | | | | | | + + + + + + + | Specimen | + + | Blood | + + + + + + + | Performing | Address | City/State/Zipcode | Phone Number | | Organization | | | | + + + + + | [facility] | [address] | [place] [address] | [phone] | | LABORATORY | [address] | | [...] | + + + + + | [facility] | [address] | [place] [address] | | + + + + + Troponin I (05/28/2018 1:59 PM) + + + + + | Component | Value | Ref Range | Performed At | + + + + + | TROPONIN I | 0.037Comment: 0.04 | 0.00 - 0.04 ng/mL | [facility] | | | ng/mL or [...] performed at | | | | | [facility];[address] [facility] | | | | | [facility];[place] [address] | | | + + + + + + + | Specimen | + + | Blood | + + + + + + + | Performing | Address | City/State/[facility] | Phone Number | | Organization | | | | + + + + + | [facility] | [address] | [place] [address] | | + + + + + [...] | | | | | performed at [facility], [address] | | | | | [facility], | | | | | [place] [address] | | | + + + + + + + | Specimen | + + | Blood | + + + + + + + | Performing | Address | City/State/Zipcode | Phone Number | | Organization | | | | + + + + + | [facility] | [address] | [place] [address] | [phone] | | LABORATORY | [address]vd[address] | | [...] performed at | | | | | [facility], [address] [facility] | | | | | [place] | | | | | [address] | | | + + + + + + + | Specimen | + + | Blood | + + + + + + + | Performing | Address | City/State/Zipcode | Phone Number | | Organization | | | | + + + + + | [facility] | [address] | [place] [address] | [phone] | | LABORATORY | Blvd. | | [...] 4.3 | 3.5 - 4.9 mmol/L | [facility] | + + + + [...] GFR <60: | >60 mL/min/1.73m2 | [facility] | | | CHRONIC KIDNEY [...] performed at [facility] | | | | | [facility];[place], [place] | | | | | [address] | | | + + + + + + + | Specimen | + + | Blood - Blood | + + + + + + + | Performing | Address | City/State/Zipcode | Phone Number | | Organization | | | | + + + + + | [facility] | [address] | [place] [address] | | + + + + + [...] P-R Interval | 182 | ms | [facility] | + + + + [...] + + + + | Calculated P [place] | 24 | degrees | [facility] | + + + + + | Calculated R [place] | 24 | degrees | [facility] | + + + + + | Calculated T [place] | 103 | degrees | [facility] | + + + + + | Diagnosis | Normal sinus rhythmPoor | | [facility] | | | R - [...] + + + + + | [facility] | [address] | [place] [address] | | + + + + + hCG, serum, qualitative (05/28/2018 9:23 AM) + + + + + | Component | Value | Ref Range | Performed At | + + + + + | TEST,SERUM | NEGATIVEComment: Testing | NEGATIVE | [facility] | | | performed at [facility], [address] | | LABORATORY | | | [address], | | | | | [place] [address] | | | + + + + + + + | Specimen | + + | Blood | + + + + + + + | Performing | Address | City/State/Zipcode | Phone Number | | Organization | | | | + + + + + | [facility] | [address] [place] [address] | [place] [address] | [phone] | | LABORATORY | [address]vd[address] | | | + + + + + C-reactive protein (05/28/2018 9:23 AM) + + + + + | Component | Value | Ref Range | Performed At | + + + + + | CRP | 5.1 (H)Comment: Testing | <0.5 mg/dL | [facility] | | | performed at [facility], [address] | | LABORATORY | | | [facility], | | | | | [place] [address] | | | + + + + + + + | Specimen | + + | Blood | + + + + + + + | Performing | Address | City/State/Zipcode | Phone Number | | Organization | | | | + + + + + | [facility] | [address] | [place] [address] | [phone] | | LABORATORY | [address]vd[address] | | | + + + + + Sedimentation rate, automated (05/28/2018 9:23 AM) + + + + + | Component | Value | Ref Range | Performed At | + + + + + | ESR | 2Comment: Testing | 0 - 20 mm/Hr | [facility] | | | performed at [facility], [address] | | LABORATORY | | | [address], | | | | | [place] [address] | | | + + + + + + + | Specimen | + + | Blood | + + + + + + + | Performing | Address | City/State/Zipcode | Phone Number | | Organization | | | | + + + + + | [facility] | [address] | [place] [address] | [phone] | | LABORATORY | [address]vd[address] | | | + + + + + TSH (05/28/2018 9:23 AM) + + + + + | Component | Value | Ref Range | Performed At | + + + + + | TSH | 1.270Comment: Testing | 0.450 - 5.100 uIU/mL | [facility] | | | performed at [facility], [address] | | LABORATORY | | | [facility], | | | | | [place] [address] | | | + + + + + + + | Specimen | + + | Blood | + + + + + + + | Performing | Address | City/State/Zipcode | Phone Number | | Organization | | | | + + + + + | [facility] | [address] | [place] [address] | [phone] | | LABORATORY | [address]vd[address] | | | + + + + + Troponin I (05/28/2018 9:23 AM) + + + + + | Component | Value | Ref Range | Performed At | + + + + + | TROPONIN I | 0.034Comment: 0.04 | 0.00 - 0.04 ng/mL | [facility] | | | ng/mL or [...] performed at | | | | | [facility];[address] | | | | | [address];[place] [address] | | | + + + + + + + | Specimen | + + | Blood | + + + + + + + | Performing | Address | City/State/Zipcode | Phone Number | | Organization | | | | + + + + + | [facility] | [address] | [place] [address] | | + + + + + [...] the | | | | | MDRD IDMO traceable | | | | | equation.Testing | | | | | performed at [facility], [address] | | | | | [facility], | | | | | [place] [address] | | | + + + + + + + | Specimen | + + | Blood | + + + + + + + | Performing | Address | City/State/Zipcode | Phone Number | | Organization | | | | + + + + + | [facility] | [address] | [place] [address] | [phone] | | LABORATORY | Blvd[address] | | [...] performed | | | | | at [facility], [address] | | | | | [facility], | | | | | [place] [address] | | | | |Testing performed at [facility], [address] [place] [address] | | | | | | | | + + + + + + + | Specimen | + + | Blood | + + + + + + + | Performing | Address | City/State/Zipcode | Phone Number | | Organization | | | | + + + + + | [facility] | [address] | [place] [address] | [phone] | | LABORATORY | Blvd[address] | | | + + + + + Pathology cytology - fluid (05/28/2018 8:00 AM) + + | Specimen | + + | Body Fluid | + + + + + | Narrative | Performed At | + + + | ORDERING PHYSICIAN: Aneudy Hunter MD PATIENT NAME: [facility] | | DARA LOUISE GENDER: [...] PERFORMING LABORATORY: Technical preparation was performed by [employer] | | | [employer], [address] [place] [address] | | | (Engineering Aide: Matt Claudio D.O.; CLIA#: [id number]). | | | Professional interpretation was performed by [employer], | | | [address] [address] | | | (Engineering Aide: Daniel Larson M.D.; CLIA#: [id number]).6 | | | Diagnostician: Marie BROOKS ([facility] [place]) [employer] Operator | | | Diagnostician: Anahy Da Silva [...] | + + + + + | [facility] | [address] | [place] [address] | [phone] | | LABORATORY | Blvd[address] | | [...] performed at | | | | | [facility], [address] [facility] | | | | | [place] | | | | | [address] | | | + + + + + + + + + + | Performing | Address | City/State/Zipcode | Phone Number | | Organization | | | | + + + + + | [facility] | [address] | [place] [address] | [phone] | | LABORATORY | [address] | | [...] valve is normal. 18. | | | Onqt-lg-jjpivwvx eccentric mitral regurgitation is present. 19. | [...] DARA LOUISE Date of : 1995 | [facility] | | Performing Physician: Robel De [...] valve is normal. 18. | | | Qydi-ux-zowvatwt eccentric mitral regurgitation is present. 19. | [...] is | | | normal. Mitral Valve: Pyla-gu-oclpimnz eccentric mitral | | | regurgitation is [...] Vmean: 0.92 m/s AV VTI: 20.07 cm TIAM Vmax: 1.74 | | | cm2 TIMA [...] TR Vmax: 2.74 m/s | | | Rn Tele: MW Authenticated by: Robel Yusuf MD Report | | | Date/Time: 05-27-2018 13:59:57 | | + + + + + | Procedure Note | + + | Sonido Steele Results In - 05/27/2018 2:00 PM PDT Patient Name: Anders LOUISE of | | : 1995Accession: [id number] Physician: Robel Yusuf | | MD INDICATIONS [...] aortic stenosis.17. The mitral valve is normal.18. Ifsd-bm-efizndcj | | eccentric mitral regurgitation is present.19. [...] | | arch are normal.26. No mass tqxdsnwveb31. No clot visualizedFINDINGS--------ECG rhythm: | | Sinus [...] The mitral valve is normal. Mitral Valve: Uvbs-ex-ycgorqht eccentric mitral | | regurgitation is present.Tricuspid [...] (A-L): 30.43 | | ml/m2LAAs A2C: 20.97 [id number] A-L A2C: 65.71 mlLALs A2C: 5.68 cmLAAs A4C: 19.94 | | rf4ARFXS A-L A4C: 60.20 mlLALs A4C: 5.60 cmTAPSE: 1.58 cmHR: 79.62 BPMAV maxPG: | | 6.06 mmHgAV meanP.71 mmHgAV Vmax: 1.23 m/Elizabeth Vmean: 0.92 m/Elizabeth VTI: 20.07 | | cmAVA Vmax: 1.74 cm2AVA (VTI): 1.93 [id number] Vmax: 0.00 cm2/m2AVAI (VTI): 0.00 | | [...] The mitral valve is | | normal.18. Kkdb-cx-psztatnj eccentric mitral regurgitation is present.19. Severe | [...] and aortic arch are normal.26. No mass qwynwsfplw41. No clot visualized | |LVIDd: 4.99 cm [...] |TR Vmax: 2.74 m/s | | | |Rn Tele: MW | |Authenticated by: Robel Yusuf MD [...] The mitral valve is normal. | |18. Wobl-wo-gmforwvn eccentric mitral regurgitation is present. | |19. [...] [facility] | [address] | [place] [address] | | + + + + + [...] | + + + + + | [facility] | [address] | [place] [address] | | + + + + + Brain natriuretic peptide (05/27/2018 4:25 AM) + + + + + | Component | Value | Ref Range | Performed At | + + + + + | BRAIN NATRIURETIC | 1,153.92 (H)Comment: | 0 - 100 pg/mL | [facility] | | PEPTIDE | Testing performed at | | | | | [facility];[address] | | | | [address];[place] [address] | | | + + + + + + + | Specimen | + + | Blood | + + + + + + + | Performing | Address | City/State/Zipcode | Phone Number | | Organization | | | | + + + + + | [facility] | [address] | [place] [address] | | + + + + + Phosphorus (05/27/2018 4:25 AM) + + + + + | Component | Value | Ref Range | Performed At | + + + + + | PHOSPHORUS | 8.0 (H)Comment: Testing | 2.3 - 4.8 mg/dL | [facility] | | | performed at [facility], [address] | | LABORATORY | | | [address], | | | | | [place] [address] | | | + + + + + + + | Specimen | + + | Blood | + + + + + + + | Performing | Address | City/State/Zipcode | Phone Number | | Organization | | | | + + + + + | [facility] | [address] [facility] [address] | [place] [address] | [phone] | | LABORATORY | [address]vd[address] | | | + + + + + Magnesium (05/27/2018 4:25 AM) + + + + + | Component | Value | Ref Range | Performed At | + + + + + | MAGNESIUM | 2.7 (H)Comment: Testing | 1.7 - 2.4 mg/dL | [facility] | | | performed at [facility], [address] | | LABORATORY | | | [facility], | | | | | [place] [address] | | | + + + + + + + | Specimen | + + | Blood | + + + + + + + | Performing | Address | City/State/Zipcode | Phone Number | | Organization | | | | + + + + + | [facility] | [address] | [place] [address] | [phone] | | LABORATORY | [address] | | [...] + | BUN/CREAT | 6 | | [facility] | | | | | LABORATORY | + + + + + | CALCIUM | 9.4 | 8.5 - 10.5 mg/dL | [facility] | | | | | LABORATORY | + + + + + | EGFR | 5 (L)Comment: GFR <60: | >60 mL/min/1.73m2 | [facility] | | | CHRONIC KIDNEY DISEASE, | [...] | | | | | performed at [facility], [address] | | | | [facility], | | | | | [place] [address] | | | + + + + + + + | Specimen | + + | Blood | + + + + + + + | Performing | Address | City/State/Zipcode | Phone Number | | Organization | | | | + + + + + | [facility] | [address] [facility] | [place] [address] | [phone] | | LABORATORY | [address] | | | + + + + + CBC w/auto diff (reflex to manual) (05/27/2018 4:25 AM) + + + + + | Component | Value | Ref Range | Performed At | + + + + + | WBC | 6.62 | 3.80 - 11.00 K/uL | [facility] | + + + + + | RBC | 3.48 (L) | 3.70 - 5.10 M/uL | [facility] | + + + + + | HGB | 12.5 | 11.3 - 15.5 g/dL | [facility] | + + + + + [...] | MPV | 9.9 | fl | [facility] | + + + + + | DIFF TYPE | AUTOMATED | | [facility] | + + + + + [...] Platelet Estimate | DECREASEDComment: | | [facility] | | | Testing performed at | | | | | [facility];[address] | [address];[place] [address] | | | + + + + + + + | Specimen | + + | Blood | + + + + + + + | Performing | Address | City/State/Zipcode | Phone Number | | Organization | | | | + + + + + | [facility] | [address] | [place] [address] | | + + + + + MRSA by PCR (05/26/2018 6:06 PM) + + + + + | Component | Value | Ref Range | Performed At | + + + + + | SOURCE | NARES(NOSE) | | [facility] | + + + + + | MRSA PCR | NEGATIVEComment: Testing | NEGATIVE | [facility] | | | [facility] [facility];[address] | | | | | [address];[place], [place] | | | | | [address] | | | + + + + + + + | Specimen | + + | Nasopharyngeal - | | Nares(Nose) | + + + + + + + | Performing | Address | City/State/Zipcode | Phone Number | | Organization | | | | + + + + + | [facility] | [address] | [place] [address] | | + + + + + [...] [place] | | | | | [address] | | | + + + + + + + | Specimen | + + | Nasopharynx/Orophary | | nx | + + + + + + + | Performing | Address | City/State/Zipcode | Phone Number | | Organization | | | | + + + + + | [facility] | [address] | [place] [address] | [phone] | | LABORATORY | [address]vd[address] | | | + + + + + PROCALCITONIN (05/26/2018 5:27 PM) + + + + + | Component | Value | Ref Range | Performed At | + + + + + | PROCALCITONIN | 0.76 (H)Comment: | <0.5 ng/mL | [facility] | | | INTERPRETIVE | [...] performed | | | | | at [facility];[address] [place] [address] | | | | | [facility];[place] [address] | | | + + + + + + + + + + | Performing | Address | City/State/Zipcode | Phone Number | | Organization | | | | + + + + + | [facility] | [address] | [place] [address] | | + + + + + [...] | + + + + + | [facility] | [address] | [place] [address] | | + + + + + [...] | + + + + + | [facility] | [address] | [place] [address] | | + + + + + [...] STAIN | STAIN PERFORMED ON | | [facility] | | | CYTOSPIN | | | + + + + + | GRAM STAIN | WBC'S SEEN | | [facility] | + + + + + | GRAM STAIN | NO EPITHELIAL CELLS SEEN | | [facility] | + + + + + | GRAM STAIN | NO ORGANISMS SEEN | | [facility] | + + + + [...] | + + + + + | [facility] | [address] | [place] [address] | [phone] | | LABORATORY | [address]. | | | + + + + + | [facility] | [address] | [place] [address] | | + + + + + Pathologist consult (05/26/2018 2:12 PM) + + + + + | Component | Value | Ref Range | Performed At | + + + + + | Pathologist Consult | Comment: Review of | | [facility] | | | pleural fluid [...] performed | | | | | at [facility];[address] | | | | | [address];[place] [address] | | | + + + + + + + + + + | Performing | Address | City/State/Zipcode | Phone Number | | Organization | | | | + + + + + | [facility] | [address] | [place] [address] | | + + + + + Total Protein, Body Fluid (05/26/2018 2:12 PM) + + + + + | Component | Value | Ref Range | Performed At | + + + + + | FLUID TOTAL PROTEIN | 4.2Comment: This is not | g/dL | [facility] | | | a foam rubber molder validated | | LABORATORY | | | sample type for this | | | | | method. No reference | | | | | ranges have been | | | | | established.Testing | | | | | performed at [facility], [address] | | | | [facility], | | | | | [place] [address] | | | + + + + + | FLUID TP SOURCE | PLEURAL FLUIDComment: | | [facility] | | | Testing performed at | | | | | [facility];[address] | | | | [address];[place] [address] | | | + + + + + + + | Specimen | + + | Body Fluid - Lung, | | Right Lower Lobe | + + + + + + + | Performing | Address | City/State/Zipcode | Phone Number | | Organization | | | | + + + + + | [facility] | [address] | [place] [address] | | + + + + + | [facility] | [address] [place] [address] | [place] [address] | [phone] | | LABORATORY | Blvd. | | | + + + + + Albumin, Body Fluid (05/26/2018 2:12 PM) + + + + + | Component | Value | Ref Range | Performed At | + + + + + | FLUID ALBUMIN | 2.3Comment: This is not | g/dL | [facility] | | | a foam rubber molder validated | | LABORATORY | | | sample type for this | | | | | method. No reference | | | | | ranges have been | | | | | established.Testing | | | | | performed at [facility], [facility] [address] | | | | | [facility], | | | | | [place] [address] | | | + + + + [...] [address] | [place] [address] | [phone] | | LABORATORY | Blvd. | | | + + + + + pH, Body Fluid (05/26/2018 2:12 PM) + + + + + | Component | Value | Ref Range | Performed At | + + + + + | FLUID PH | 7.45Comment: Testing | | [facility] | | | performed at [facility];[address] | | | | | [address];[place] | | | | | [address] | | | + + + + + + + | Specimen | + + | Body Fluid - Lung, | | Right Lower Lobe | + + + + + + + | Performing | Address | City/State/Zipcode | Phone Number | | Organization | | | | + + + + + | [facility] | [address] | [place] [address] | | + + + + + [facility] | [place] [address] | [phone] | | LABORATORY | Blvd. | | | + + + + + Cell count, Body Fluid (05/26/2018 2:12 PM) + + + + + | Component | Value | Ref Range | Performed At | + + + + + | FLUID TYPE | PLEURAL FLUID | | [facility] | + + + + + | COLOR | SAMMIE | | [facility] | + + + + + | APPEARANCE | CLOUDY | | [facility] | + + + + + | RBC'S | 3,000Comment: CORRECTED | /mm3 | [facility] | | | RESULTS CALLED TO | | | | | ELSA IN ED AT 1705 | | | | | BY LGJCORRECTED ON 05/26 | | | | | AT 1702: PREVIOUSLY | | | | | REPORTED <[id number] | | | + + + + + | TOTAL NUCLEATED | 253Comment: CORRECTED | /mm3 | [facility] | | CELLS | RESULTS [...] MONOCYTES/MACROPHAGE | 65 | % | [facility] | | S | | | | + + + + + | Mesothelial Cells | 5 | % | [facility] | + + + + + | CELLS COUNTED | 100Comment: Testing | | [facility] | | | performed at [facility];[address] | | | | | [address];[place] | | | | | [address] | | | + + + + + + + | Specimen | + + | Body Fluid - Lung, | | Right Lower Lobe | + + + + + + + | Performing | Address | City/State/Zipcode | Phone Number | | Organization | | | | + + + + + | [facility] | [address] | [place] [address] | | + + + + + PROCALCITONIN (05/26/2018 12:14 PM) + + + + + | Component | Value | Ref Range | Performed At | + + + + + | PROCALCITONIN | 0.56 (H)Comment: | <0.5 ng/mL | [facility] | | | INTERPRETIVE | [...] performed | | | | | at [facility];[address] [place] [address] | | | | | [facility];[place] [address] | | | + + + + + + + + + + | Performing | Address | City/State/Zipcode | Phone Number | | Organization | | | | + + + + + | [facility] | [address] | [place] [address] | | + + + + + Brain natriuretic peptide (05/26/2018 12:14 PM) + + + + + | Component | Value | Ref Range | Performed At | + + + + + | BRAIN NATRIURETIC | 1,268.24 (H)Comment: | 0 - 100 pg/mL | [facility] | | PEPTIDE | Testing performed at | | | | | [facility];[address] | | [address];[place] [address] | | | + + + + + + + + + + | Performing | Address | City/State/Zipcode | Phone Number | | Organization | | | | + + + + + | [facility] | [address] | [place] [address] | | + + + + + [...] | 11.3 - 15.5 g/dL | [facility] | + + + + + | HCT | 36.1 | 34.0 - 46.0 % | [facility] | + + + + [...] (H) | 35 - 115 U/L | [facility] | + + + + + | AST | 82 (H) | 10 - 45 U/L | [facility] | + + + + + | ALT | 64 | 10 - 65 U/L | [facility] | + + + + + | EGFR | 6 (L)Comment: GFR <60: | >60 mL/min/1.73m2 | [facility] | | | CHRONIC KIDNEY [...] | 30 - 240 U/L | [facility] | + + + + + | INR | 1.6Comment: REFERENCE | | [facility] | | | RANGE:0.9 - [...] | 23 - 32 seconds | [facility] | + + + + + | MMB | 7.8 (H) | 0.5 - 3.6 ng/mL | [facility] | + + + + + | CK-MB Index | 2.7Comment: CK INDEX | | [facility] | | | INTERPRETATION: | [...] [facility];[address] | | | | | [address];[place] | | | | | [address] | | | + + + + + + + + + + | Performing | Address | City/State/Zipcode | Phone Number | | Organization | | | | + + + + + | [facility] | [address] | [place] [address] | | + + + + + Thoracentesis (05/26/2018 12:01 PM) + + + | Narrative | Performed At | + + + | Aneudy Hunter MD 05/26/2018 4:23 PM Thoracentesis | | | Date/Time: 05/26/2018 1:24 PM Performed by: ANEUDY HUNETR | | | Authorized by: ANEUDY HUNTER [...] space: 4th Puncture | | | method: Mtqy-cqe-gnwjdx catheter Ultrasound guidance: yes | | | [...] perforation, infection and | | | pain [place] protocol: Imaging studies available: yes | | [...] Performed At | + + + | [id number] Criteria Met 2 in 2 | ED [...] (12 mo.) Facility Visits Low Acuity [facility] | | | [facility] 1 0 [facility] 5 0 Total 6 0 | | | Note: Visits indicate total known visits. Medicaid Low Acuity Dx | | | are the number of primary diagnoses on the Medicaid's Low Acuity dx | | | list. Recent Emergency Department Visit Summary Date Facility | | | [facility] State Type Diagnoses or Chief Complaint May 26, 2018 [facility] | | | [facility] [place] Emergency Chest pain, unspecified | | | May 26, [address] [facility] [place] Emergency Chief | | | Complaint: FLU SYMPTOMS May 25, [address] [facility] [place] | | | Emergency Chief Complaint: SOB/COUGH May 10, 2018 [facility]. | | [...] | | disease Feb 14, [address] [facility] [place] Emergency | | | Functional dyspepsia Other ascites Epigastric pain | | | Allergy status to narcotic agent status Radiographic dye | | | allergy status Nicotine dependence, unspecified, uncomplicated | | | Other detention (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 Sep 16, [address] [facility] | | | [place] Emergency Chronic kidney disease, | | | unspecified Dependence on renal dialysis Pain, | | | unspecified Allergy status to narcotic agent status | | | Nicotine dependence, unspecified, uncomplicated Other detention | | | (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 Elevated [...] Portal This patient has registered at the [facility] | | | [facility] Emergency Department For more information visit: | | | [email or web address] | | | [email or web address] PLEASE NOTE: [...] | | completeness of information provided. 2019 [employer] | | | [employer]. - [email or web address] | | + + + + + | Procedure Note | + + | Interface, Lab - 05/26/2018 12:00 PM PDT Formatting of this note may be different | | from the original.[id number] [id number] Met 2 in 2Security and | | SafetyNo recent Security Events currently on fileED Care GuidelinesThere are currently | | no ED Care Guidelines for this patient. Please check your facility's medical records | | system.Prescription Drug Report (12 Mo.)PDMP query found no report.E.D. Visit Count (12 | | mo.)Facility Visits Low Acuity [facility] 1 0 [facility] | | Hospital 5 0 Total 6 0 Note: Visits indicate total known visits. Medicaid Low Acuity Dx | | are the number of primary diagnoses on the Medicaid's Low Acuity dx list. Recent | | Emergency Department Visit SummaryDate Facility City State Type Diagnoses or Chief | | Complaint May 26, 2018 [facility] [place]. [place] Emergency Chest pain, | | unspecified May [...] stage renal disease Feb 14, 2018 [facility] [place] [facility] | | 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 Emergency Chronic kidney disease, unspecified | | Dependence on renal dialysis Pain, unspecified Allergy status to narcotic agent | | status Nicotine dependence, unspecified, uncomplicated Other detention (current) | | 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 Elevated blood-pressure [...] | Anupam patient has registered at the [facility] Emergency | | Department For more information visit: | | [email or web address] andnbsp | | PLEASE NOTE: 1. Any [...] or completeness of information | | provided.2019 [employer]. - [email or web address] | | Hypertensive heart and chronic kidney disease without heart failure, with stage 5 chroni c kidney disease, or end stage renal disease | | | |Feb 14, 2018 [facility] [place] Emergency | | Functional dyspepsia | | Other ascites | | Epigastric pain | | Allergy status to narcotic agent status | | Radiographic dye allergy status | | Nicotine dependence, unspecified, uncomplicated | | Other detention (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 | | | |Sep 16, 2017 [facility] [place] Emergency | | Chronic kidney disease, unspecified | | Dependence on renal dialysis | | Pain, unspecified | | Allergy status to narcotic agent status | | Nicotine dependence, unspecified, uncomplicated | | Other retail services professional (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 | | Elevated blood-pressure [...] Emergency Department | |For more information visit: [email or web address] | |andnbsp PLEASE NOTE: | | 1. [...] of information provided. | | | |2019 [employer]. - [email or web address] | + + + +---------+ + + [...] [facility] | [address] | [place] [address] | | + + + + [...] 10 mLs | | | | 0.5% -[id number] injection 10 mL | Other | 9 [...] PDT | | | | | Dialysis, [place] 05/27/18 at 1700, | | | | [...] PDT | | | | | Dialysis, [facility] 05/30/18 at 0730, | | [...] PDT | | | | | Dialysis, [place] 05/27/18 at 1700, | | | | [...] PDT | | | | | Dialysis, [facility] 05/28/18 at 1230, | | | | [...] | | | Daily, First dose on [facility] 05/29/18 | | PDT | | [...] PRN, Prevent | | | clotting, Starting [facility] 05/30/18 at | | | 0654 | | + +---+ | | | + +---+ | sodium chloride 0.9 % bolus 100 | | | mL 100 mL, Intravenous, Every 5 | | | Min PRN, for cramps or | | | hypotension during dialysis., | | | Starting [facility] 05/28/18 at 1211, | | | DIALYSIS [...]
--- OUTSIDE RECORDS SUMMARY | ~2018-07-18 | XMS | Encounter Summary ---
Demographics + + + | Address | [address] | | | [place] [address] | + + + | Home Phone [...] | | | | | [place] [address] | | + + + + + | Thania Mallory | ECON | [address] | | | | | [place] [address] | | + + + + + | Deidra Weldon | ECON | [address] | | | | | [place] | | | | | [address] | | + + + + + Care Team Providers + +------+ + | Care Forming Process Line Worker Name | Role | Phone | [...] | | | | Keven | Elias Beemer | | | | | | [facility] | [facility] | | | | | | [address] | Mailcode: | | | | | | Keven Drew | [address] | | | | | | [place] | [place] | | | | | | [place] | [place], [place] | | | | | | [address] | [address] | | | | | | Phone: | Phone: | | | | | | [phone] | [phone] | | | | | | Fax: | | | | | | | [phone] | | +--------+--------+ + + + + Encounter Details +--------+---------+ + + + | Date | Type | Department | Care Team | Description | +--------+---------+ + + + | 08/17/ | Office | Specialty Clinics | Sudhakar Joy | Anemia of chronic | | 2016 | Visit | at [facility] [address] | MD Emanuel [address] | kidney failure, | | | | [facility] | [facility] | stage 5 (HCC) | | | | Mailcode: [address] | [place], [place] | (Primary Dx); [facility] | | | | [place] | [address] | (Jada-Schmanueln | | | | [place], [place] | [phone] | purpura) nephritis | | | | [address] | | | | | | [phone] | | | +--------+---------+ + + + [...] good. She has moved into a [facility]. She has collected enough money to [...] [address] Mail code [facility], [place] [address] documented in this encounter Plan of Treatment [...] [place] | | | | | | [address] | | | | | | [phone] | | | | | | | [...]
--- OUTSIDE RECORDS SUMMARY | ~2018-07-18 | XMS | Encounter Summary ---
Demographics + + + | Address | [address] | | | [place] [address] | + + + | Home Phone [...] | | | | | [place] [address] | | + + + + + | Thania Mallory | ECON | [address] | | | | | [place] [address] | | + + + + + | Deidra Weldon | ECON | [address] | | | | | [place] | | | | | [address] | | + + + + + Care Team Providers + +------+ + | Care Fittings Finisher Name | Role | Phone | [...] | | | | [address] | [address] | potential | | | | Road [place], [place] | [place], [place] | donor/checking in | | | | [address] | [address] | with SW) | | | | [phone] | | | +--------+ + + + [...] Denise | | | | | | [place] | | | | | | [address] | | | | | | [phone] | | | | | | | | +--------+ + + + + documented as of this encounter Visit Diagnoses Not on filedocumented in this encounter"
--- OUTSIDE RECORDS SUMMARY | ~2018-07-18 | XMS | Encounter Summary ---
Demographics + + + | Address | [address] | | | [place] [address] | + + + | Home Phone [...] | | | | | [place] [address] | | + + + + + | Thania Mallory | ECON | [address] | | | | | [place] [address] | | + + + + + | Deidra Weldon | ECON | [address] | | | | | [place] | | | | | [address] | | + + + + + Care Team Providers + +------+ + | Care Junior Bookkeeper Name | Role | Phone | [...] | [address] [facility] | [facility] | Evaluation | | | | Road [place], [place] | [place], [place] | (pre-listing | | | | [address] | [address] | pediatric [place] [address] | | | | [phone] | | update) | +--------+ + + [...] | | | | | | [place], [place] | | | | | | [address] | | | | | | [phone] | | | | | | | | +--------+ + + + + documented as of this encounter Visit Diagnoses Not on filedocumented in this encounter"
--- OUTSIDE RECORDS SUMMARY | ~2018-07-18 | XMS | Encounter Summary ---
Demographics + + + | Address | [address] | | | [place] [address] | + + + | Home Phone [...] | | | | | [place] [address] | | + + + + + | Thania Mallory | ECON | [address] | | | | | [place] [address] | | + + + + + | Deidra Weldon | ECON | [address] | | | | | [place] | | | | | [address] | | + + + + + Care Team Providers + +------+ + | Care Design Engineering Intern Name | Role | Phone [...] | | Jonathan Gallagher, | [address] | | | | | | [address] | [address] | | | | | | Keven | Elias Benedicta | | | | | | [facility] | [facility] | | | | | | [address] | Mailcode: | | | | | | Keven Drew | [address] | | | | | | [place] | [place] | | | | | | [place] | [place], [place] | | | | | | [address] | [address] | | | | | | Phone: | Phone: | | | | | | [phone] | [phone] | | | | | | Fax: | | | | | | | [phone] | | +--------+--------+ + + + + Encounter Details +--------+---------+ + + + | Date | Type | Department | Care Team | Description | +--------+---------+ + + + | 01/20/ | Office | Specialty Clinics | Sudhakar Joy | [facility] | | 2015 | Visit | at [facility] [address] | MD Emanuel [address] | ([place] | | | | [facility] | [address] | purpura) nephritis | | | | Mailcode: DC7 | [place], [place] | (Primary Dx); | | | | [place] | [address] | Allergic purpura- | | | | [place], [place] | [phone] | MEDICARE 2728; | | | | [address] | | Anemia of chronic | | | | [phone] | | kidney failure, | | | [...] of chronic kidney failure Obesity (BMI 30-39.9) aDra has been on hemodialysis for a few [...] [address] Mail code [facility], [place] [address] documented in this encounter Plan of Treatment +--------+ + + + + | Date | Type | Specialty | Care Team | Description | +--------+ + + + + | 05/04/ | Hospital | Adult Acute Care | El Starr MD | | | 2022 | Encounter | | [address] | | | | | | [place], [place] | | | | | | [address] | | | | | | [phone] | | | | | | | [...]
--- OUTSIDE RECORDS SUMMARY | ~2018-07-18 | XMS | Encounter Summary ---
Demographics + + + | Address | [address] | | | [place] [address] | + + + | Home Phone [...] | | | | | [place] [address] | | + + + + + | Thania Mallory | ECON | [address] | | | | | [place] [address] | | + + + + + | Deidra Weldon | ECON | [address] | | | | | [place] | | | | | [address] | | + + + + + Care Team Providers + +------+ + | Care Newspaper Writer Name | Role | Phone | + +------+ + | Shahid Camargo MD | PCP | Unavailable | + +------+ + Encounter Details +--------+------+ + + + | Date | Type | Department | Care Team | Description | +--------+------+ + + + | 12/20/ | Lab | [facility] | | Allergic purpura- | | 2012 | | 7th Floor [address] | | MEDICARE [address] | | | | [address] | | (Primary Dx) | | | | Road [place], [place] | | | | | | [address] | | | | | | [phone] | | | +--------+------+ + + + [...] [place] | | | | | | [address] | | | | | | [phone] | | | | | | | [...] - | [address] | [place], [place] | | | IMMUNOGENETICS/TRANS | Suite [...] | [address] | [place], [place] | | | IMMUNOGENETICS/TRANS | Suite [...] + + | [facility] - | [address] | [place] [address] | | | IMMUNOGENETICS/TRANS | [address] | | | | PLANT LABORATORY | | | | + + + + + LIT HLA-B LOW RES-KE (12/20/2012 10:02 AM PDT) + + | Specimen | + + | Blood - Blood | + + + + + + + | Performing | Address | [email or web address] | Phone Number | | Organization | | | | + + + + + | [facility] - | [address] | [place] [address] | | | IMMUNOGENETICS/TRANS | [address] [...] + | [facility] - | [address] | [place] [address] | | | IMMUNOGENETICS/TRANS | [address] [...] + | [facility] - | [address] | [place], [place] | | | IMMUNOGENETICS/TRANS | Suite [...] - | [address] | [place], [place] | | | IMMUNOGENETICS/TRANS | Suite [...] [facility] - | [address] | [place] [address] | | | IMMUNOGENETICS/TRANS | [address] [...] - | [address] | [place] [address] | | | IMMUNOGENETICS/TRANS | [address] [...] [facility] | [address] | [place] [address] | | | SERVICES, | LONG CHAHAL [...] [facility] | [address] | [place] [address] | | | SERVICES, | [address] [...] [facility] | [address] | [place] [address] | | | SERVICES, CORE | PARK [...] UNIV | | | | Pippa Sauceda, [facility] | | PTH - INTFC | | | | [address] | | | | | | [phone].[email or web address]. | | | | | | annalee, [...] [facility] | [address] | [place], [place] | | | UNIV PTH - INTFC | | [address] | | + + + + + [...] | + + + + + | [facility] | [address] | [place] [address] | | | SERVICES, HOMERO | PARK [...] [facility] | [address] | [place] [address] | | | SERVICES, CORE | PARK [...] + | [facility] - | [address] | [place] [address] | | | [place] | | | [...] [facility] | [address] | [place] [address] | | | SERVICES, CORE | PARK [...] [facility] | [address] | [place] [address] | | | SERVICES, CORE | PARK [...] [facility] | [address] | [place] [address] | | | SERVICES, CORE | PARK [...] + | [facility] - | [address] | [place] [address] | | | [place] | | | [...] | | | at: | | | http://www.cdc.gov/nchstp/tb/pubs/tbfactssheets/072156.htm | | | Test performed by: [facility] | | | Public Health Lab [address] Jaciel.[address] [place] [address] | | | | | + + [...] [facility] | [address] | [place] [address] | | | SERVICES, SPECIAL | PARK [...] | PROTHROMBIN | No Mutation | | TIAL | | | GENE | | | [...] gene at | DIAGNOSTIC | | nucleotide [id number]. Please note that this assay only detects the | LABORATORIES | | [id number] point mutation and therefore a normal result [...] has been analyzed for the presence of [id number] | | | mutation in the prothrombin [...] | above. Heterozygotes for the common prothrombin [id number] mutation | | | constitute approximately 2% of the normal white population (1,2). | | | References: 1.) Edwinat et al. Blood 88, 5867-9019 (1995). 2.) Ricardo | | | et al. Circulation 99, 999-1004 (1998). 3.) Al Montalvo, and | | | Press. Amer J Clin Path 155, 439-47 (2001). This test was | | | developed and its performance characteristics determined by the [facility] | | | [facility]. It has | | | not been cleared or approved by the Food and Drug | | | Administration. FDA approval is not required for clinical use of | | | this test, and therefore validation was done as required under the | | | requirements of the Clinical Laboratory Improvement Act of | | | 1988. The [facility] Molecular Diagnostic | | | Center is a fully licensed and/or accredited clinical laboratory under | | | CLIA, [facility], and the State [facility]. Please note that our lab now [...] + + | [facility] | [address] | [place] [address] | | | DIAGNOSTIC | [address] [...] | + + + + + | [facility] | [address] | [place] [address] | | | SERVICES, CORE | LONG [...] [facility] | [address] | [place] [address] | | | SERVICES, CORE | LONG [...] [facility] | [address] | [place] [address] | | | SERVICES, HOMERO | LONG [...] ranges for full anticoagulation: INR for | [facility] | | Venous Thromboembolism (2.0 - 3.0) INR INR | LABORATORY | | for most patients with mech. valves (2.5 - 3.5) INR | SERVICES, CORE | + + + + + + + + | Performing | Address | City/State/Zipcode | Phone Number | | Organization | | | | + + + + + | [facility] | [address] | [place] [address] | | | SERVICES, HOMERO | LONG [...] | | | | | | [place] [address] | | | | | | [phone].aruplab. | | | | | | Faisal [...] [facility] | [address] | [place], [place] | | | UNIV PTH - INTFC | | [address] | | + + + + + [...] | + + + + + | [address] | [address] | [place] [address] | | | SERVICES, SPECIAL | PARK [...] + + + + | [facility] | [address] | [place] [address] | | | DIAGNOSTIC | [address] [...] + | [facility] - | [address] | [place] [address] | | | [place] | | | [...] + | [facility] - | [address] | [place] [address] | | | [place] | | | [...] + | [facility] - | [address] | [place] [address] | | | [place] | | | | + + + [...] + | [facility] - | [address] | [place] [address] | | | [place] | | | [...] less......Not | | | | | | Cyzjdlxk40.0-21.9 | | | | | | U/mL.........Indetermina [...] available | | | | | | [email or web address]/eb | | | | | | vdx.Performed by [facility] | | | | | | [facility],[address] | | | | | | Rajendra, [facility] [address] | | | | | | [phone].link birduplab. | | | | | | Faisal [...] [facility] | [address] | [place], [place] | | | UNIV PTH - INTFC | | [address] | | + + + + + [...] + | [facility] - | [address] | [place] [address] | | | [place] | | | | + + + [...] [facility] | [address] | [place] [address] | | | SERVICES, CORE | LONG [...] by | | | | | | [address] | | | | | | Pippa Sauceda, [facility],[place] | | | | | | [address] | | | | | | [phone].Mohound. | | | | | | annalee, [...] [facility] | [address] | [place], [place] | | | UNIV PTH - INTFC | | [address] | | + + + + + [...] | + + + + + | [address] | [address] | [place] [address] | | | SERVICES, CORE | PARK [...] [facility] | [address] | [place] [address] | | | SERVICES, CORE | PARK [...] [facility] | [address] | [place] [address] | | | SERVICES, CORE | [address] | | | + + + + + documented in this encounter Visit Diagnoses + + | Diagnosis | + + | 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
--- OUTSIDE RECORDS SUMMARY | ~2018-07-18 | XMS | Encounter Summary ---
Demographics + + + | Address | [address] | | | [place] [address] | + + + | Home Phone [...] | | | | | [place] [address] | | + + + + + | Thania Mallory | ECON | [address] | | | | | [place] [address] | | + + + + + | Deidra Weldon | ECON | [address] | | | | | [place] | | | | | [address] | | + + + + + Care Team Providers + +------+ + | Care Coat Padder Name | Role | Phone | + [...] | Update | | | | [address] [facility] | [facility] | | | | | Road [place], [place] | [place], [place] | | | | | [address] | [address] | | | | | [phone] | | | +--------+ + + + [...] [place] | | | | | | [address] | | | | | | [phone] | | | | | | | | +--------+ + + + + documented as of this encounter Visit Diagnoses Not on filedocumented in this encounter"
--- OUTSIDE RECORDS SUMMARY | ~2018-07-18 | XMS | Encounter Summary ---
Demographics + + + | Address | [address] | | | [place] [address] | + + + | Home Phone [...] + + + | Author | [employer] | + + + | Organization | [facility] | + + + | [...] Providers + +------+ + | Care Superintendent Factory Name | Role | Phone | + [...] | | | | | [place] [address] | | | | | | [phone] | | | +--------+ + + + [...] | | | | | [place] [address] | | | | | | [phone] | | | | | | | | +--------+---------+ + + + as of this encounter Visit Diagnoses Not on filein this encounter"
--- OUTSIDE RECORDS SUMMARY | ~2018-07-18 | XMS | Encounter Summary ---
Demographics + + + | Address | [address] | | | [place] [address] | + + + | Home Phone [...] + + + | Author | [employer] | + + + | Organization | [facility] | + + + | [...] Providers + +------+ + | Care Hydroelectric Plant Mechanical Engineer Name | Role | Phone | [...] | | | | | | [place] [address] | | | | | | [phone] | | | | | | | [...] Álvarez | | | | | | [place] [address] | | | | | | [phone] | | | | | | | [...] MV A Shahid: 0.39 m/s MV Dec Duplin: 9.46 m/s2 | | | MV DecT: 106.01 ms MV E Shahid: 1.00 m/s MV E/A Ratio: | | | 2.54 E/E' Sept: 23.82 E' Lat: 0.08 m/s E' Sept: 0.04 | | | m/s RAP: 15 mmHg RV S': 0.11 m/s RVSP: 67.64 mmHg TR | | | maxP.64 mmHg TR Vmax: 3.61 m/s Wreath [employer] Garland Maker: | | | Authenticated by: René Noonan MD Report Date/Time: -- | | | 70_8-6-1224_50:15:25 | | + + + + + | Procedure Note | + + | Sonido Steele Results In - 06/12/2018 4:15 PM PDT Patient Name: Anders WELDON of | | : 1995Accession: [id number] Physician: René Noonan MD | | INDICATIONS [...] (A-L): 31.60 | | ml/m2LAAs A2C: 18.56 bx2NBZGP A-L A2C: 58.49 mlLAESV MOD A2C: 54.57 mlLALs A2C: | | 5.00 cmLAAs A4C: 17.96 pv6WSQTL A-L A4C: 52.99 mlLAESV MOD A4C: 44.93 mlLALs A4C: | | 5.18 cmLAESV(MOD BP): 49.83 mlRAAs: 18.33 rt4TBRYT A-L: 57.01 mlRAESV MOD: | | 56.24 mlRALs: 5.02 cmTAPSE: 1.98 cmAV Env.Ti: 227.35 msAV maxP.22 mmHgAV | | meanP.25 mmHgAV Vmax: 1.59 m/Elizabeth Vmean: 1.06 m/Elizabeth VTI: 24.30 cmAVA Vmax: | | 2.68 cm2AVA (VTI): 2.73 ji2NGAP Vmax: 0.00 cm2/m2AVAI (VTI): 0.00 cm2/m2LVOT | | Env.Ti: 210.72 msLVOT maxP.99 mmHgLVOT meanP.87 mmHgLVSI Dopp: 37.17 | | ml/m2LVSV Dopp: 66.54 mlLVOT Vmax: 1.41 m/sLVOT Vmean: 1.03 m/sLVOT VTI: 21.88 | | cmMV A Shahid: 0.39 m/sMV Dec Duplin: 9.46 m/s2MV DecT: 106.01 msMV E Shahid: 1.00 | | m/sMV E/A Ratio: 2.54 E/E' Sept: 23.82 E' Lat: 0.08 m/sE' Sept: 0.04 m/sRAP: | | 15 mmHgRV S': 0.11 m/sRVSP: 67.64 mmHgTR maxP.64 mmHgTR Vmax: 3.61 | | m/sSonographer: Authenticated by: René Noonan MDReport Date/Time: -- | | 03_1-1-2312_59:15:25IMPRESSION:1. Overall left ventricular systolic function is | [...] A Shahid: 0.39 m/s | |MV Dec Duplin: 9.46 m/s2 | |MV DecT: 106.01 ms | |MV E Shahid: 1.00 m/s | |MV E/A Ratio: 2.54 | |E/E' Sept: 23.82 | |E' Lat: 0.08 m/s | |E' Sept: 0.04 m/s | |RAP: 15 mmHg | |RV S': 0.11 m/s | |RVSP: 67.64 mmHg | |TR maxP.64 mmHg | |TR Vmax: 3.61 m/s | | | |[employer] [place]land Maker: | |Authenticated by: René Noonan MD | |Report Date/Time: -- 81_1-3-9708_10:15:25 | | | |IMPRESSION: | |1. Overall [...] | + + + + + | [facility] | [address] | [place] [address] | | + + + + + in this encounter Visit Diagnoses + + | Diagnosis | + + | Dyspnea, unspecified type | + +"
--- OUTSIDE RECORDS SUMMARY | ~2018-07-18 | XMS | Encounter Summary ---
Demographics + + + | Address | [address] | | | [place] [address] | + + + | Home Phone [...] | | | | | [place] [address] | | + + + + + | Thania Mallory | ECON | [address] | | | | | [place] [address] | | + + + + + | Deidra Weldon | ECON | [address] | | | | | [place] | | | | | [address] | | + + + + + Care Team Providers + +------+ + | Care Nc Manager Name | Role | Phone | [...] | Update | | | | [facility] | [facility] | | | | | Road [place], [place] | [place], [place] | | | | | [address] | [address] | | | | | [phone] | | | +--------+ + + + [...] [place] | | | | | | [address] | | | | | | [phone] | | | | | | | | +--------+ + + + + documented as of this encounter Visit Diagnoses Not on filedocumented in this encounter"
--- OUTSIDE RECORDS SUMMARY | ~2018-07-18 | XMS | Encounter Summary ---
[...] | | | | | [place] [address] | | + + + + + | Thania Mallory | ECON | [address] | | | | | [place] [address] | | + + + + + | Deidra Louise | ECON | [address] | | | | | [place] | | | | | [address] | | + + + + + Care Team Providers + +------+ + | Care Supervisor Roving Department Name | Role | Phone | [...] | | | | | ([facility] | [address] | [address] | | | | | nlein | [place], [place] | Mailcode: | | | | | purpura) | [address] | DC7S | | | | | nephritis | Phone: | [address] | | | | | Hemodialysis | [phone] | [place], [place] | | | | | status | Fax: | [address] | | | | | (HCC) | [phone] | Phone: | | | | | Chronic | | [phone] | | | | | kidney | | Fax: | | | | | disease, | | [phone] | | | | | stage V [...] | Appointment | | | | [facility] | [facility] | | | | | Road [place], [place] | [place], [place] | | | | | [address] | [address] | | | | | [phone] | | | +--------+ + + + [...] Denise | | | | | | [place], [place] | | | | | | [address] | | | | | | [phone] | | | | | | | | +--------+ + + + + + +------+--------+ + + | Name | Type | Priori | Associated Diagnoses | Order Schedule | | | | ty | | | + +------+--------+ + + | 12 LEAD ECG | ECG | Routin | Allergic purpura- | Ordered: 01/07/2015 | | | | e | MEDICARE 5408 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 BSA | | | | | | ([place] [facility] | | | | | | [...] [facility] Echocardiography Laboratory | | [address] | | [place] [address] | | ; | | [id number] | | | | Transthoracic Echocardiogram Report | | | | | | NAME: DARA LOUISE Study Date: 01/20/2015 1:18:29 PM | | Order #: [id number] [facility] #: [id number] | | | | | | : [...] on 01/20/2015 at 2:35:17 PM | | Timber Buyer: YAR[address]ZA [address] | | | | | | cc: | | | | | | Modes utilized | | TTE 22354; Spectral Doppler 88324; Color flow Doppler 23957; | | | | | | | | Final | + + + + + + + | Performing | Address | City/State/Zipcode | Phone Number | | Organization | | | | + + + + + | [facility] | [address] | [place], [place] | | | CARDIOLOGY | [address] | [address] | | + + + + + [...] | + + + + + | [facility] | [address] | [place] [address] | | | SERVICES, SPECIAL | [address] [...] + + + | [facility] | [address] | [place] [address] | | | DIAGNOSTIC | [address] [...] | | QUAL, SERUM | | | [facility] | | + + + + + + + + | Specimen | + + | Blood - Blood | + + + + + + + | Performing | Address | City/State/Zipcode | Phone Number | | Organization | | | | + + + + + | [facility] | [address] | [place] [address] | | | [place] | | | [...] + | [facility] | [address] | [place] [address] | | | [place] | | | [...] + | [facility] | [address] | [place] [address] | | | [place] | | | [...] + | [facility] | [address] | [place] [address] | | | [facility] | | | | + [...] by | | | | | | [address] | | | | | | Lorne Drew, [facility] | | | | | | [address] | | | | | | [phone].NanoBiolab. | | | | | | annalee, [...] [facility] | [address] | [place], [place] | | | UNIV PTH - INTFC | | [address] | | + + + + + [...] | + + + + + | [facility] - | [address] | [place] [address] | | | [place] | | | [...] by | | | | | | [address] | | | | | | Lorne Rajendra, [facility],[place] | | | | | | [address] | | | | | | [phone].NanoBiolab. | | | | | | Faisal [...] [facility] | [address] | [place], [place] | | | UNIV PTH - INTFC | | [address] | | + + + + + [...] [facility] | [address] | [place] [address] | | | SERVICES, CORE | PARK [...] | + + + + + | [facility] | [address] | [place] [address] | | | SERVICES, CORE | LONG [...] + + + | [facility] | [address] | [place] [address] | | | RIKY, CORE | PARK [...] [facility] | [address] | [place] [address] | | | SERVICES, CORE | PARK [...] | + + + + + | [facility] | [address] | [place] [address] | | | SERVICES, CORE | LONG [...] | | | LABORATORY | | | NEPALESE | | | SERVICES, | | | [...] | + + + + + | [facility] | [address] | [place] [address] | | | SERVICES, CORE | PARK [...]
--- OUTSIDE RECORDS SUMMARY | ~2018-07-18 | XMS | Encounter Summary ---
Demographics + + + | Address | [address] | | | [place] [address] | + + + | Home Phone [...] | | | | | [place] [address] | | + + + + + | Thania Mallory | ECON | [address] | | | | | [place] [address] | | + + + + + | Deidra Weldon | ECON | [address] | | | | | [place] | | | | | [address] | | + + + + + Care Team Providers + +------+ + | Care Underground Mining Section Foreman Name | Role | Phone | [...] | [address] | [facility] | (HCC) (Primary Dx) | | | | [facility] | [place], [place] | | | | | Mailcode: UHS18 | [address] | | | | | [place], [place] | [phone] | | | | | [address] | | | | | | [phone] | | | +--------+---------+ + + + [...] a nutrition perspective. Argentina Mehta, MS, RD, LOG CUT OFF SAWYER, LD documented in this e ncounter Plan of Treatment +--------+ + + + + | Date | Type | Specialty | Care Team | Description | +--------+ + + + + | 05/04/ | Hospital | Adult Acute Care | El Starr MD | | | 2022 | Encounter | | [address] | | | | | | [place], [place] | | | | | | [address] | | | | | | [phone] | | | | | | | | +--------+ + + + + documented as of this encounter Procedures + +--------+ + + + | Procedure Name | Priori | Date/Time | Associated Diagnosis | Comments | | | ty | | | | + +--------+ + + + | ME MNT INITIAL | Routin | 12/21/2012 | [...]
--- OUTSIDE RECORDS SUMMARY | ~2018-07-18 | XMS | Encounter Summary ---
Demographics + + + | Address | [address] | | | [place] [address] | + + + | Home Phone [...] | | | | | [place] [address] | | + + + + + | Thania Mallory | ECON | [address] | | | | | [place] [address] | | + + + + + | Deidra Weldon | ECON | [address] | | | | | [place] | | | | | [address] | | + + + + + [...] date) | | | | [address] [facility] | [facility] | | | | | Road [place], [place] | [place], [place] | | | | | [address] | [address] | | | | | [phone] | | | +--------+ + + + [...] | | | | | | [place], [place] | | | | | | [address] | | | | | | [phone] | | | | | | | | +--------+ + + + + documented as of this encounter Visit Diagnoses Not on filedocumented in this encounter"
--- OUTSIDE RECORDS SUMMARY | ~2018-07-18 | XMS | Encounter Summary ---
Demographics + + + | Address | [address] | | | [place] [address] | + + + | Home Phone [...] | | | | | [place] [address] | | + + + + + | Thania Mallory | ECON | [address] | | | | | [place] [address] | | + + + + + | Deidra Weldon | ECON | [address] | | | | | [place] | | | | | [address] | | + + + + + Care Team Providers + +------+ + | Care Metal Flooring Installer Name | Role | Phone [...] | | 2015 | ann | [address] | | | | | | [facility] | | | | | | [place], [place] | | | | | | [address] | | | +--------+ + + + [...] Denise | | | | | | [place], [place] | | | | | | [address] | | | | | | [phone] | | | | | | | | +--------+ + + + + documented as of this encounter Visit Diagnoses Not on [facility] ricamented in this encounter"
--- OUTSIDE RECORDS SUMMARY | ~2018-07-18 | XMS | Encounter Summary ---
Demographics + + + | Address | [address] | | | [place] [address] | + + + | Home Phone [...] | | | | | [place] [address] | | + + + + + | Thania Mallory | ECON | [address] | | | | | [place] [address] | | + + + + + | Deidra Weldon | ECON | [address] | | | | | [place] | | | | | [address] | | + + + + + Care Team Providers + +------+ + | Care Ice Skating Teacher Name | Role | Phone | [...] | | Coordinators [phone] [facility] | Update | | | | [address] [facility] | [facility] | | | | | Road [place], [place] | [place], [place] | | | | | [address] | [address] | | | | | [phone] | [phone] | | | | | | | [...] Denise | | | | | | [place], [place] | | | | | | [address] | | | | | | [phone] | | | | | | | | +--------+ + + + + documented as of this encounter Visit Diagnoses Not on filedocumented in this encounter"
[~2018-07-18 17:26] MED LIST changes: +VALSARTAN80 MG
--- OUTSIDE RECORDS SUMMARY | 2018-07-18 17:30 | XMS ---
PreManage Notification: CONOR LOUISE Security Sales Operations Associate Events No recent Security Events currently on file CRITERIA MET - 6 ED Visits in 6 Months - [facility] - Has Care Guidelines - PDMP - [facility] - 2 Visits in 30 Days CARE PROVIDERS TIEN NICHOLSON Hospitalist 05/28/2018-Current PHONE: Unknown Karena has no Care Guidelines for this patient. Care History Medical/Surgical 05/28/2018 [facility] - Patient is currently established with [facility]. If patient is seen in the ED during business hours. Please contact CHWs at [facility]. Care Recommendation: This patient has had [...] care. E.D. VISIT COUNT (12 MO.) 1 [facility] 10 [facility] TOTAL 11 NOTE: Visits indicate total known visits. ED/UCC VISIT TRACKING (12 MO.) 07/18/2018 17:27 [facility] [place] TYPE: Emergency COMPLAINT: - SINUS CONGESTION/ FEVER 06/19/2018 23:43 [facility] [place] TYPE: Emergency COMPLAINT: - CHEST PAIN DIAGNOSES: - Other chest pain - MCC (current) use of opiate analgesic - Allergy status to other drugs, medicaments and biological substances status - End stage renal disease - Dependence on renal dialysis - Personal history of nicotine dependence - Fluid overload, unspecified - Radiographic dye allergy status - Heart failure, unspecified - Other gore inserter (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 06/12/2018 13:45 [facility] [place] TYPE: Emergency COMPLAINT: - SOB DIAGNOSES: - Shortness of breath - Radiographic dye allergy status - Hyperkalemia - Allergy status to narcotic agent status - Fluid overload, unspecified - Other nursing home (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 - Allergy status to other drugs, medicaments and biological substances status 06/11/2018 07:55 [facility] [place] TYPE: Emergency COMPLAINT: - DIFFICULTY BREATHING,VOMITING DIAGNOSES: - Chronic pulmonary edema - Shortness of breath - Other gore inserter (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 - Radiographic dye allergy status - MCC (current) use of opiate analgesic - Personal history of nicotine dependence 06/04/2018 06:07 [facility] [place] TYPE: Emergency COMPLAINT: - SOB DIAGNOSES: - Shortness of breath - Allergy status to other drugs, medicaments and biological substances status - Radiographic dye allergy status - Other gore inserter (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 - Dyspnea, unspecified - Allergy status to narcotic agent status - Respiratory syncytial virus as the cause of diseases classified elsewhere 05/26/2018 11:57 [facility] TYPE: Emergency DIAGNOSES: - Acute respiratory distress - Chest pain, unspecified - Other ascites - Pleural effusion, not elsewhere classified 05/26/2018 07:23 [facility] TYPE: Emergency COMPLAINT: - FLU SYMPTOMS DIAGNOSES: - Allergy status to other drugs, medicaments and biological substances status - Other gore inserter (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 - Radiographic dye allergy status - Dependence on renal dialysis - Pleural effusion, not elsewhere classified - Allergy status to narcotic agent status - Shortness of breath 05/25/2018 11:53 [facility] [place] TYPE: Emergency COMPLAINT: - SOB/COUGH DIAGNOSES: - Dependence on renal dialysis - Shortness of breath - Allergy status to narcotic agent status - Pneumonia, unspecified organism - Other nursing home (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 - Radiographic dye allergy status - Pleural effusion, not elsewhere classified - Allergy status to other drugs, medicaments and biological substances status 05/10/2018 07:20 [facility] [place] TYPE: Emergency COMPLAINT: - PREVIOUS BLOODY NOSE DIAGNOSES: - Epistaxis - Other nursing home (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 - End stage renal [...] unspecified, uncomplicated - Epigastric pain - Other nursing home (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 09/16/2017 23:06 [facility] [place] TYPE: Emergency COMPLAINT: - BP PROBLEM,RENAL FAILURE DIAGNOSES: - Chronic kidney disease, unspecified - Dependence on renal dialysis - Pain, unspecified - Allergy status to narcotic agent status - Nicotine dependence, unspecified, uncomplicated - Other gore inserter (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 - Elevated blood-pressure reading, without diagnosis of hypertension - Patient's noncompliance with renal dialysis - Hypertensive chronic kidney disease with stage 1 through stage 4 chronic kidney disease, or unspecified chronic kidney disease - Radiographic dye allergy status INPATIENT VISIT TRACKING (12 MO.) 05/26/2018 11:57 [facility] [place] [facility] [place] TYPE: General Medicine DIAGNOSES: - Acute respiratory [...] specified personal risk factors, not elsewhere classified [email or web address]
== END 2018-07-18 21:22 | disposition short-term general hospital (02) ==
LOC: ED 17:26
DX: J98.8 Other specified respiratory disorders (principal); N18.9 Chronic kidney disease, unspecified; Z87.891 Personal history of nicotine dependence; Z91.041 Radiographic dye allergy status; Z88.5 Allergy status to narcotic agent; Z88.8 Allergy status to other drugs, medicaments and biological substances
CPT/HCPCS: 71045; 80053; 81001; 83605; 85025; 87502; 94640; 96365; 96375; 99284-25; J0696; J2405

== ENCOUNTER 2018-08-13 10:24 | Emergency (ER) | payer MEDICARE, OTHER ==
[~2018-08-13] VITALS: Ht 170.2 cm; Wt 68.3 kg
--- OUTSIDE RECORDS SUMMARY | ~2018-08-13 | XMS | Encounter Summary ---
Demographics + + + | Address | [address] | | | [place] [address] | + + + | Home Phone [...] Author + + + | Author | [facility] | + + + | Organization | [facility] | + + + | Address | Unknown | + + + | Phone | Unavailable | + + + Support + + + + + | Name | Relationship | Address | Phone | + + + + + | Cory Louise | ECON | [address] | | | | | [place] [address] | | + + + + + | Thania Mallory | ECON | [address] | | | | | [place] [address] | | + + + + + | Deidra Louise | ECON | [address] | | | | | [place] | | | | | [address] | | + + + + + Care Team Providers + +------+ + | Care Cake Batter Mixer Name | Role | Phone | + [...] | | | | purpura | [address] | [address] | | | | | (HCC) HSP | [address] Leias | [address] | | | | | (Henoch-Scho | [address] | [address] | | | | | nlein | [place], [place] | Mailcode: | | | | | purpura) | [address] | DC7S | | | | | nephritis | Phone: | Dob[place] | | | | | Hemodialysis | [phone] | [place], [place] | | | | | status | Fax: | [address] | | | | | (HCC) | [phone] | Phone: | | | | | Chronic | | [phone] | | | | | kidney | | Fax: | | | | | disease, | | [phone] | | | | | stage V [...] | + + + | Transplant | | | Appointment | | + + + Encounter Details +--------+ + + + + | Date | Type | Department | Care Team | Description | +--------+ + + + + | 01/07/ | Telephone | Transplant | Kelsi Martinez, | Transplant | | 2014 | | Coordinators [address] | RN [address] | Appointment | | | | [address] [facility] | [facility] | | | | | Road [place], [place] | [place], [place] | | | | | [address] | [address] | | | | | [phone] | | | +--------+ + + + [...] Denise | | | | | | [place], [place] | | | | | | [address] | | | | | | [phone] | | | | | | | | +--------+ + + + + + +------+--------+ + + | Name | Type | Priori | Associated Diagnoses | Order Schedule | | | | ty | | | + +------+--------+ + + | 12 LEAD ECG | ECG | Routin | Allergic purpura- | Ordered: 01/07/2015 | | | | e | MEDICARE 9438 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 | | | | | | Hemodialysis status | | | | | | ([facility]) Chronic | | | | | | kidney disease, | | | | | | stage V (HCC) | | + +------+--------+ + + documented [...] the | | | | PST | (SaraSchjulio | results section. | | | | [...] | | | CARDIOLOGY | | | ([facility] | | | | | | SCORE) | | | | | + +-------+ + + + | ASCENDING | -1.6 | | [facility]PT | | | [facility]A | | | OF | | | DIAMETER | | | CARDIOLOGY | | | VS. BSA | | | | | | ([facility] | | | | | | [...] Interface, Cardiology Results - 01/20/2015 2:35 PM [facility] Ech[facility] | | [address] | | [place] [address] | | ; | | [id number] | | | | Transthoracic Echocardiogram Report | | | | | | NAME: DARA LOUISE Study Date: 01/20/2015 1:18:29 PM | | Order #: [id number] [facility] #: [id number] | | | | | | : [...] on 01/20/2015 at 2:35:17 PM | | Real Estate Lawyer: YARITZA KLINE RD | | | | | | cc: | | | | | | Modes utilized | | TTE [id number]; Spectral Doppler 54205; Color flow Doppler 86211; | | | | | | | | Final | + + + + + + + | Performing | Address | City/State/Zipcode | Phone Number | | Organization | | | | + + + + + | [facility] | [address] | [place], [place] | | | CARDIOLOGY | [address] | [address] | | + + + + + [...] | | | | signed / ALIREZA Paelncia | | | | | | EMIL [...] | + + + + + | [facility] | [address] | [place] [address] | | | SERVICES, SPECIAL | PARK [...] 12-100,000,000 IU/mL These results are most | [place] | | likely suggestive of either the [...] + + + | [facility] | [address] | [place] [address] | | | DIAGNOSTIC | [address] [...] | | QUAL, SERUM | | | [facility] | | + + + + + + + + | Specimen | + + | Blood - Blood | + + + + + + + | Performing | Address | City/State/Zipcode | Phone Number | | Organization | | | | + + + + + | [facility] | [address] | [place] [address] | | | [place] | | | [...] + | [facility] | [address] | [place] [address] | | | [place] | | | [...] + | [facility] | [address] | [place] [address] | | | [place] | | | [...] + | [facility] | [address] | [place] [address] | | | [facility] | | | | + + + [...] by | | | | | | [address] | | | | | | Lorne Drew, [facility] | | | | | | [address] | | | | | | [phone].Useful Systemslab. | | | | | | annalee, [...] [facility] | [address] | [place], [place] | | | UNIV PTH - INTFC | | [address] | | + + + + + [...] | + + + + + | [facility] | [address] | [place] [address] | | | [place] | | | [...] testing | | | | | | in | | | | | | | | | | | | 10-14 days | | | | | | may be helpful. 0.70 | | | | | | U/mL or greater...... | | | | | | Detected In | | | | | | immunocompromised [...] | | | | | | Not | | | | | | Detected 30.0-34.9 | | | | | | AU/mL........... | | | | | | Indeterminate-Repeat | | | | | | testing | | | | | | | | | | | | | | | | | | in 10-14 days | | | | | | may be helpful. 35.0 | | | | | | AU/mL or Greater .... | | | | | | Detected-IgM antibody to | | | | | | | | | | | | CMV | | | | | | | | | | | | detected | | | | | | which may indicate | | | | | | a | | | | | | | | | | | | current or | | | | | | recent | | | | | | infection. | | | | | | | | | | | | | | | | | | However, low levels of | | | | | | IgM | | | | | | | | | | | | antibodies | | | | | | may | | | | | | occasionally | | | | | | | | | | | | | | | | | | persist for more than | | | | | | 12 | | | | | | [...] by | | | | | | [address] | | | | | | Lorne Rajendra, [facility] | | | | | | [address] | | | | | | [phone].Useful Systemslab. | | | | | | Faisal [...] | + + + + + | [facility] | [address] | [place], [place] | | | UNIV PTH - INTFC | | [address] | | + + + + + [...] [facility] | [address] | [place] [address] | | | SERVICES, CORE | PARK [...] | + + + + + | [facility] | [address] | [place] [address] | | | SERVICES, CORE | LONG [...] | + + + + + | [facility] | [address] | [place] [address] | | | RIKY, CORE | [address] | | | + + + + + MAGNESIUM, PLASMA (01/20/2015 9:59 AM PST) + +-------+ + + + | Component | Value | Ref Range | Performed | Pathologist | | | | | At | Signature | + +-------+ + + + | MAGNESIUM,P | 2.3 | 1.8 - 2.5 mg/dL | [facility] | | | L[facility]MA | | | [...] [facility] | [address] | [place] [address] | | | SERVICES, CORE | PARK [...] | + + + + + | [facility] | [address] | [place] [address] | | | SERVICES, CORE | LONG [...] | | | LABORATORY | | | LEBANESE | | | SERVICES, | | | | | | CORE | | + + + + + + | EGFR NON | 9 (L) | >60 mL/min | [facility] | | | -[facility] | | | LABORATORY | | | [...] | | Interpretive Information: <60 mL/min/1.73 sq | SERVICES, CORE | | m Chronic Kidney Disease <15 mL/min/1.73 | | | sq m Kidney Failure Estimated GFR greater | | | that 60 mL/min/1.73 sq m is of limited clinical value. 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
--- OUTSIDE RECORDS SUMMARY | ~2018-08-13 | XMS | Encounter Summary ---
Demographics + + + | Address | [address] | | | [place] [address] | + + + | Home Phone [...] + + + | Author | [facility] | + + + | Organization | [facility] | + + + | Address | Unknown | + + + | Phone | Unavailable | + + + Support + + + + + | Name | Relationship | Address | Phone | + + + + + | Cory Weldon | ECON | [address] | | | | | [place] [address] | | + + + + + | Thania Mallory | ECON | [address] | | | | | [place] [address] | | + + + + + | Deidra Weldon | ECON | [address] | | | | | [place] | | | | | [address] | | + + + + + Care Team Providers + +------+ + | Care Interactive Media Director Name | Role | Phone | [...] | renal | [address] | [address] [facility] | | | | | disease | [address] | [address] | | | | | (HCC) | Caro Chan | Dustin [place], | | | | | Allergic | [place], [place] | [place] | | | | | purpura | [address] | [address] | | | | | ([facility]) | Phone: | Phone: | | | | | | [phone] | [phone] | | | | | | Fax: | Fax: | | | | | | [phone] | [phone] | +--------+--------+ + + + + Encounter Details +--------+ + + + + | Date | Type | Department | Care Team | Description | +--------+ + + + + | 12/20/ | Hospital | Radiology at [facility] | | | | 2012 | Encounter | [address] | | | | | | [facility] | | | | | | Mailcode: L[address] | | | | | | tayler | | | | | | [place], [place] | | | | | | [address] | | | | | | [phone] | | | +--------+ + + + [...] Denise | | | | | | [place], [place] | | | | | | [address] | | | | | | [phone] | | | | | | | [...] | e | 9:58 AM | MEDICARE 2728 | procedure are [...] | | | | | | MDAuthor: ENLSON | | | | | | MD [...] +---------+ + + | [facility]PART[facility] OF | | | | | RADIOLOGY | | | | + +---------+ + + documented in this encounter Visit Diagnoses + + | Diagnosis | + + | 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
--- OUTSIDE RECORDS SUMMARY | ~2018-08-13 | XMS | Encounter Summary ---
Demographics + + + | Address | [address] | | | [place] [address] | + + + | Home Phone [...] + + + | Author | [facility] [facility] | + + + | Organization | [facility] | + + + | [...] Team Providers + +------+ + | Care Human Resources Receptionist Name | Role | Phone | + +------+ + | Jonathan Alonso MD | PCP | | + +------+ + Reason for Visit +--------+ + | Reason | Comments | +--------+ + | Other | [facility] - most recent labs . | +--------+ + Encounter Details +--------+ + + + + | Date | Type | Department | Care Team | Description | +--------+ + + + + | 06/26/ | Jennifer | ADIEL Hutchinson | Daniela Alejandre | Other (Celina | | 2019 | on Only | Cardiology Jessy | [place]IANA Castellanos | [facility] - | | | | [address] | | most recent labs .) | | | | [place] | | | | | | [address] | | | | | | [phone] | | | +--------+ + + + [...] Description | +--------+---------+ + + + | 11/22/ | Office | Pulmonology | Denny Alexander | | | 2019 | Visit | | Deny Briggs MD [address] | | | | | | [address] | | | | | | [place] [address] | | | | | | [phone] | | | | | | | | +--------+---------+ + + + as of this encounter Visit Diagnoses Not on filein this encounter"
--- OUTSIDE RECORDS SUMMARY | ~2018-08-13 | XMS | Encounter Summary ---
Demographics + + + | Address | [address] | | | [place] [address] | + + + | Home Phone [...] | | | | | [place] [address] | | + + + + + | Thania Mallory | ECON | [address] | | | | | [place] [address] | | + + + + + | Deidra Weldon | ECON | [address] | | | | | [place] | | | | | [address] | | + + + + + Care Team Providers + +------+ + | Care Erp Consultant Name | Role | Phone | [...] | | 2017 | on | Work [address] | Brigitte [address] | Update ([address] | | | | [facility] | [address] | clinic check-in) | | | | Ruel Jane | [place], [place] | | | | | [place], [place] | [address] | | | | | [address] | | | | | | [phone] | | | +--------+ + + + [...] Denise | | | | | | [place] | | | | | | [address] | | | | | | [phone] | | | | | | | | +--------+ + + + + documented as of this encounter Visit Diagnoses Not on filedocumented in this encounter"
--- OUTSIDE RECORDS SUMMARY | ~2018-08-13 | XMS | Encounter Summary ---
Demographics + + + | Address | [address] | | | [place] [address] | + + + | Home Phone [...] | | | | | [place] [address] | | + + + + + | Thania Mallory | ECON | [address] | | | | | [place] [address] | | + + + + + | Deidra Weldon | ECON | [address] | | | | | [place] | | | | | [address] | | + + + + + Care Team Providers + +------+ + | Care Bellows Filler Name | Role | Phone | + +------+ + | Jonathan Alonso MD | PCP | | + +------+ + Reason for Visit + + + | Reason | Comments | + + + | Social work | psychosocial update from pt's mom | | consultation | | + + + Encounter Details +--------+ + + + + | Date | Type | Department | Care Team | Description | +--------+ + + + + | 06/09/ | Telephone | Transplant | Mariza Hsu | Social work | | 2016 | | Coordinators [address] | [address] | consultation | | | | [address] | [address] | (psychosocial update | | | | Road [place], [place] | [place], [place] | from pt's mom) | | | | [address] | [address] | | | | | [phone] | | | +--------+ + + + [...] [place] | | | | | | [address] | | | | | | [phone] | | | | | | | | +--------+ + + + + documented as of this encounter Visit Diagnoses Not on filedocumented in this encounter"
--- OUTSIDE RECORDS SUMMARY | ~2018-08-13 | XMS | Encounter Summary ---
Demographics + + + | Address | [address] | | | [place] [address] | + + + | Home Phone [...] + + + | Author | [facility] | + + + | Organization | [facility] | + + + | Address | Unknown | + + + | Phone | Unavailable | + + + Support + + + + + | Name | Relationship | Address | Phone | + + + + + | Cory Weldon | ECON | [address] | | | | | [place] [address] | | + + + + + | Thania Mallory | ECON | [address] | | | | | [place] [address] | | + + + + + | Deirda Weldon | ECON | [address] | | | | | [place] | | | | | [address] | | + + + + + Care Team Providers + +------+ + | Care Fire Apparatus Sprinkler Inspector Name | Role | Phone | + +------+ + | No Pcp Per Patient | PCP | Unavailable | + +------+ + Reason for Visit + + + | Reason | Comments | + + + | Committee Review | | | Recommendations | | + + + Encounter Details +--------+ + + + + | Date | Type | Department | Care Team | Description | +--------+ + + + + | 02/14/ | Telephone | Pediatric | Sudhakar Joy | Committee Review | | 2013 | | Nephrology at | MD Emanuel [address] | Recommendations | | | | [place] | [facility] | | | | | [facility] | [place], [place] | | | | | [address] | [address] | | | | | [facility] | [phone] | | | | | Mailcode: DCH7 | | | | | | [place] | | | | | | [place], [place] | | | | | | [address] | | | | | | [phone] | | | +--------+ + + + [...] Denise | | | | | | [place] | | | | | | [address] | | | | | | [phone] | | | | | | | | +--------+ + + + + documented as of this encounter Visit Diagnoses Not on filedocumented in this encounter"
--- OUTSIDE RECORDS SUMMARY | ~2018-08-13 | XMS | Encounter Summary ---
Demographics + + + | Address | [address] | | | [place] [address] | + + + | Home Phone [...] Author + + + | Author | [facility] | + + + | Organization | [facility] | + + + | Address | Unknown | + + + | Phone | Unavailable | + + + Support + + + + + | Name | Relationship | Address | Phone | + + + + + | Cory Weldon | ECON | [address] | | | | | [place] [address] | | + + + + + | Thania Mallory | ECON | [address] | | | | | [place] [address] | | + + + + + | Deidra Weldon | ECON | [address] | | | | | [place] | | | | | [address] | | + + + + + Care Team Providers + +------+ + | Care Associate Project Manager Name | Role | Phone | + +------+ + | Jonathan Alonso MD | PCP | | + +------+ + Reason for Visit + + + | Reason | Comments | + + + | Social work | SW assistance with SSA | | consultation | | + + + Encounter Details +--------+ + + + + | Date | Type | Department | Care Team | Description | +--------+ + + + + | 10/08/ | Telephone | Transplant | Mariza Hsu | Social work | | 2015 | | Coordinators [address] | [address] | consultation ([address] | | | | [address] | [address] | assistance with SSA) | | | | Road [place], [place] | [place], [place] | | | | | [address] | [address] | | | | | [phone] | | | +--------+ + + + [...] Denise | | | | | | [place] | | | | | | [address] | | | | | | [phone] | | | | | | | | +--------+ + + + + documented as of this encounter Visit Diagnoses Not on filedocumented in this encounter"
--- OUTSIDE RECORDS SUMMARY | ~2018-08-13 | XMS | Encounter Summary ---
Demographics + + + | Address | [address] | | | [place] [address] | + + + | Home Phone [...] Author + + + | Author | [facility] | + + + | Organization | [facility] | + + + | Address | Unknown | + + + | Phone | Unavailable | + + + Support + + + + + | Name | Relationship | Address | Phone | + + + + + | Cory Weldon | ECON | [address] | | | | | [place] [address] | | + + + + + | Thania Mallory | ECON | [address] | | | | | [place] [address] | | + + + + + | Deidra Weldon | ECON | [address] | | | | | [place] | | | | | [address] | | + + + + + Care Team Providers + +------+ + | Care Unclaimed Property Manager Name | Role | Phone [...] | 2012 | on | Coordinators [address] | [address] | Transplant - Renal | | | | [facility] | [facility] | | | | | Road [place], [place] | [place], [place] | | | | | [address] | [address] | | | | | [phone] | | | +--------+ + + + [...] Denise | | | | | | [place], [place] | | | | | | [address] | | | | | | [phone] | | | | | | | | +--------+ + + + + documented as of this encounter Visit Diagnoses + + | Diagnosis | + + | HSP (Henoch-Schonlein purpura) nephritis - Primary Other nephritis and nephropathy, | | not specified as acute or chronic, with specified pathological lesion in kidney | + + documented in this encounter"
--- OUTSIDE RECORDS SUMMARY | ~2018-08-13 | XMS | Encounter Summary ---
Demographics + + + | Address | [address] | | | [place] [address] | + + + | Home Phone [...] Author + + + | Author | [facility] | + + + | Organization | [facility] | + + + | Address | Unknown | + + + | Phone | Unavailable | + + + Support + + + + + | Name | Relationship | Address | Phone | + + + + + | Cory Weldon | ECON | [address] | | | | | [place] [address] | | + + + + + | Thania Mallory | ECON | [address] | | | | | [place] [address] | | + + + + + | Deidra Weldon | ECON | [address] | | | | | [place] | | | | | [address] | | + + + + + Care Team Providers + +------+ + | Care Business Process Analyst Name | Role | Phone | + +------+ + | No Pcp Per Patient | PCP | Unavailable | + +------+ + Encounter Details +--------+ + + + + | Date | Type | Department | Care Team | Description | +--------+ + + + + | 02/14/ | Orders Only | Transplant | Kelsi Martinez, | | | 2013 | | Coordinators [address] | RN [address] | | | | | [address] [facility] | [facility] | | | | | Road [place], [place] | [place], [place] | | | | | [address] | [address] | | | | | [phone] | | | +--------+ + + + [...] Denise | | | | | | [place], [place] | | | | | | [address] | | | | | | [phone] | | | | | | | | +--------+ + + + + documented as of this encounter Visit Diagnoses Not on filedocumented in this encounter"
--- OUTSIDE RECORDS SUMMARY | ~2018-08-13 | XMS | Encounter Summary ---
Demographics + + + | Address | [address] | | | [place] [address] | + + + | Home Phone [...] | | | | | [place] [address] | | + + + + + | Thania Mallory | ECON | [address] | | | | | [place] [address] | | + + + + + | Deidra Weldon | ECON | [address] | | | | | [place] | | | | | [address] | | + + + + + Care Team Providers + +------+ + | Care Plastic Surgery Nurse Name | Role | Phone | [...] Visit | Services Inpatient | [address] | disease, stage V | | | | [address] | [facility] | (HCC) (Primary Dx) | | | | [facility] | [place], [place] | | | | | Mailcode: [id number] | [address] | | | | | [place], [place] | [phone] | | | | | [address] | | | | | | [phone] | | | +--------+---------+ + + + [...] Supplements none. ANTHROPOMETRICS: Ht stated 5' 5 03/07" Wt stated 224 lbs (with dialysate) Stated [...] a nutrition perspective. Argentina Mehta, MS, RD, FILM MAKER, LD documented in this e ncounter Plan of Treatment +--------+ + + + + | Date | Type | Specialty | Care Team | Description | +--------+ + + + + | 05/04/ | Hospital | Adult Acute Care | El Starr MD | | | 2022 | Encounter | | [address] | | | | | | [place], [place] | | | | | | [address] | | | | | | [phone] | | | | | | | | +--------+ + + + + documented as of this encounter Procedures + +--------+ + + + | Procedure Name | Priori | Date/Time | Associated Diagnosis | Comments | | | ty | | | | + +--------+ + + + | VT MNT INITIAL | Routin | 12/21/2012 | [...]
--- OUTSIDE RECORDS SUMMARY | ~2018-08-13 | XMS | Encounter Summary ---
Demographics + + + | Address | [address] | | | [place] [address] | + + + | Home Phone [...] Author + + + | Author | [facility] | + + + | Organization | [facility] | + + + | Address | Unknown | + + + | Phone | Unavailable | + + + Support + + + + + | Name | Relationship | Address | Phone | + + + + + | Cory Weldon | ECON | [address] | | | | | [place] [address] | | + + + + + | Thania Mallory | ECON | [address] | | | | | [place] [address] | | + + + + + | Deidra Weldon | ECON | [address] | | | | | [place] | | | | | [address] | | + + + + + Care Team Providers + +------+ + | Care Boat Diesel Motor Mechanic Name | Role | Phone | [...] [address] | RN [address] [facility] | | | | | [address] [facility] | [facility] | | | | | Road [place], [place] | [place], [place] | | | | | [address] | [address] | | | | | [phone] | | | +--------+ + + + [...] Denise | | | | | | [place], [place] | | | | | | [address] | | | | | | [phone] | | | | | | | | +--------+ + + + + documented as of this encounter Visit Diagnoses Not on filedocumented in this encounter"
--- OUTSIDE RECORDS SUMMARY | ~2018-08-13 | XMS | Encounter Summary ---
Demographics + + + | Address | [address] | | | [place] [address] | + + + | Home Phone [...] | | | | | [place] [address] | | + + + + + | Thania Mallory | ECON | [address] | | | | | [place] [address] | | + + + + + | Deidra Weldon | ECON | [address] | | | | | [place] | | | | | [address] | | + + + + + Care Team Providers + +------+ + | Care Implementation Specialist Payroll Name | Role | Phone | + [...] | Requested | | | | [facility] | [facility] | | | | | Road [place], [place] | [place], [place] | | | | | [address] | [address] | | | | | [phone] | | | +--------+ + + + [...] [place] | | | | | | [address] | | | | | | [phone] | | | | | | | | +--------+ + + + + documented as of this encounter Visit Diagnoses Not on filedocumented in this encounter"
--- OUTSIDE RECORDS SUMMARY | ~2018-08-13 | XMS | Encounter Summary ---
Demographics + + + | Address | [address] | | | [place] [address] | + + + | Home Phone [...] Author + + + | Author | [facility] | + + + | Organization | [facility] | + + + | Address | Unknown | + + + | Phone | Unavailable | + + + Support + + + + + | Name | Relationship | Address | Phone | + + + + + | Cory Weldon | ECON | [address] | | | | | [place] [address] | | + + + + + | Thania Mallory | ECON | [address] | | | | | [place] [address] | | + + + + + | Deidra Weldon | ECON | [address] | | | | | [place] | | | | | [address] | | + + + + + Care Team Providers + +------+ + | Care Steel Worker Name | Role | Phone | + +------+ + | Jonathan Alonso MD | PCP | | + +------+ + Encounter Details +--------+ + + + + | Date | Type | Department | Care Team | Description | +--------+ + + + + | 01/27/ | Ancillary | Registration [address] | Other, Faculty | | | 2005 | Registratio | [address] | [phone] | | | | n | [facility] Mailcode: | | | | | | [id number] [place], [place] | | | | | | [address] | | | | | | [phone] | | | +--------+ + + + [...] Denise | | | | | | [place], [place] | | | | | | [address] | | | | | | [phone] | | | | | | | [...] | [facility] | | | PATHOLOGY | [facility] | | DEPARTMENT | | [...] | | | | | | nephritis | | | | | | Comment: There is | | | | | | strong glomerular | | | | | | mesangial staining for | | | | | | C3 with lesseramounts of | | | | | | IgA and faint | | | | | | IgM. The IgA deposits | | | | | | are mesangial with | | | | | | markedfocal and | | | | | [...] Ewing | | | | | | Kt, | | | | | | M.DSujit/PathologistT:02/02/ | | | | | | 06:bonny [...] Fuente | | | | | | Sudarshan Joy | | | | | | [facility], | | | | | | [place],labeled algaaciq | | | | | | kidney | | | | | | biopsy. Present are | | | | | | two flores needle core | | | [...] number | | | | | | [id number].[facility]/lab | | | | | | Microscopic [...] | | | | is evident in | | | | | | some. The tubules are | | | | | | generally | | | | | | intact,although | | | | | | focally by | | | | | | edema and patches of | | | | | | mixed | | | | | | inflammatorycells. Ar | | | | | | teries are apparently | | | | | | normal. | | | | | | [...] crescents. | | | | | | | | | | | | RESULTS:IgG: | | | | | | NegativeIgM: | | | | | | 1+ peripheral glomerular | | | | | | capillary wall | | | | | | depositsIgA: | | | | | | 2+ focal, segmental | | | | | | mesangial | | | | | | depositsKappa: | | | | | | | | | | | | EquivocalLambda: 1+, | | | | | | similar to | | | | | | IgAC3: 3+ | | | | | | mesangial and capillary | | | | | | wall | | | | | | [id number]: | | | | | | NegativeFibrinogen: [...] | | | | | | Electron | | | | | | Microscopy: This part | | | | | | of the specimen | | | | | | contains three | | | | | [...] | | | | | | bulkymesangial | | | | | | deposits. Smaller | | | | | | subendothelial deposits | | | | | | are also present.There | | | | | | are no tubulo-reticular | | | | | | structures. Basement | | | | | | membranes are | | | | | | generallyuniform. Rudi | | | | | | t processes are | | | | | | extensively | | | | | | effaced. In a | | | | | | glomerulus withextensive | | | | | | collapse the deposits | | | | | | are relatively | | | | | | scarce. Fibrin has | | | | | | formedin the urinary | | | | | | space in the vicinity of | | | | | | a collapsed lobule, | | | | | | capped by anepithelial | | | | | | [...] Ordered by Rufino De La Fuente | [facility] | | | DEPARTMENT OF | | | PATHOLOGY | + + + + + + + + | Performing | Address | City/State/Zipcode | Phone Number | | Organization | | | | + + + + + | [facility] | [address] | [place] [address] | | | PATHOLOGY | [address] | | | + + + + + | [facility] | [address] | [place] [address] | | | PATHOLOGY | [address] | | | + + + + + documented in this encounter Visit Diagnoses Not on filedocumented in this encounter"
--- OUTSIDE RECORDS SUMMARY | ~2018-08-13 | XMS | Encounter Summary ---
Demographics + + + | Address | [address] | | | [place] [address] | + + + | Home Phone [...] | | | | | [place] [address] | | + + + + + | Thania Mallory | ECON | [address] | | | | | [place] [address] | | + + + + + | Deidra Weldon | ECON | [address] | | | | | [place] | | | | | [address] | | + + + + + Care Team Providers + +------+ + | Care Outside Plant Engineer Name | Role | Phone | [...] + + | 04/23/ | Documentati | Transplant | Kelsi Martinez, | Other (Update) | | 2016 | on | Coordinators [address] | RN [address] | | | | | [facility] | [facility] | | | | | Road [place], [place] | [place], [place] | | | | | [address] | [address] | | | | | [phone] | | | +--------+ + + + [...] [place] | | | | | | [address] | | | | | | [phone] | | | | | | | | +--------+ + + + + documented as of this encounter Visit Diagnoses Not on filedocumented in this encounter"
--- OUTSIDE RECORDS SUMMARY | ~2018-08-13 | XMS | Encounter Summary ---
Demographics + + + | Address | [address] | | | [place] [address] | + + + | Home Phone [...] Author + + + | Author | [facility] | + + + | Organization | [facility] | + + + | Address | Unknown | + + + | Phone | Unavailable | + + + Support + + + + + | Name | Relationship | Address | Phone | + + + + + | Cory Weldon | ECON | [address] | | | | | [place] [address] | | + + + + + | Thania Mallory | ECON | [address] | | | | | [place] [address] | | + + + + + | Deidra Weldon | ECON | [address] | | | | | [place] | | | | | [address] | | + + + + + Care Team Providers + +------+ + | Care Installation And Service Technician Name | Role | Phone | [...] + + | 07/12/ | Documentati | Transplant | Kelsi Martinez, | Transplant Status | | 2017 | on | Coordinators [address] | RN [address] | Change (Delisting) | | | | [address] [facility] | [facility] | | | | | Road [place], [place] | [place], [place] | | | | | [address] | [address] | | | | | [phone] | | | +--------+ + + + [...] Denise | | | | | | [place] | | | | | | [address] | | | | | | [phone] | | | | | | | | +--------+ + + + + documented as of this encounter Visit Diagnoses Not on filedocumented in this encounter"
--- OUTSIDE RECORDS SUMMARY | ~2018-08-13 | XMS | Encounter Summary ---
Demographics + + + | Address | [address] | | | [place] [address] | + + + | Home Phone [...] + + + | Author | [employer] | + + + | Organization | [facility] | + + + [...] Team Providers + +------+ + | Care Coupon Clerk Name | Role | Phone | + +------+ + | Tien Nicholson MD | PCP | | + +------+ + Reason for Visit + + + | Reason | Comments | + + + | Shortness of Breath | | + + + | Referral | Transfer from [facility] | + + + Auth/Cert +--------+--------+ + + + + | Status | Reason | Specialty | Diagnoses / | Referred By | Referred To | | | | | Procedures | Contact | Contact | +--------+--------+ + + + + | | | Internal | Diagnoses | | [facility] 4th | | | | Medicine | Acute | | [address] | | | | | respiratory | | [address] | | | | | distress | | [address] | | | | | Other | | [place], [place] | | | | | ascites | | [address] Phone: | | | | | Pleural | | [phone] | | | | | effusion on | | Fax: | | | | | right Chest | | [phone] | | | | | pain, | | | | | | | unspecified | | | | | | | type | | | +--------+--------+ + + + + Encounter Details +--------+ + + + + | Date | Type | Department | Care Team | Description | +--------+ + + + + | 05/26/ | Hospital | [facility] | Maria Luisa Aneudy L, | Pleural effusion on | | 2019 - | Encounter | [facility] 4th | MD [address] | right (Primary Dx); | | | | [facility] | [place] [address] | Chest pain, | | 06/01/ | | [address] | [phone] [place], | unspecified type; | | 2018 | | [place] [address] | MD May[address] | Other ascites; Acute | | | | [phone] | [address] | respiratory | | | | | [place] [address] | distress; End-stage | | | | | [phone] | renal disease on | | | | | | hemodialysis ([facility]); | | | | | Anthony Belcher MD | Hyperkalemia; | | | | | [address] | Hyperphosphatemia; | | | | | [place] [address] | At high risk for | | | | | [phone] | electrolyte | | | | | | imbalance; Acute | | | | | Darell Kowalski MD | systolic CHF | | | | | [address] | (congestive heart | | | | | [place] [address] | failure) ([facility]); | | | | | [phone] | Hypoalbuminemia; | | | | | | Anemia in ESRD | | | | | | (end-stage renal | | | | | | disease) ([facility]); ESRD | | | | | | [...] + + + in this encounter Discharge Summaries Darell Kowalski MD - 06/01/2018 9:59 AM PDTFormatting of this note may be different from pierre coleman. [facility] Service: Hospitalist Physician Discharge Summary Pt: Dara Louise AGE/SEX: 23 y.o. female ROOM: 4441/4441-1 PCP: TIEN NICHOLSON : 1995 Admit date: 05/26/2018 Discharge date and time: 06/01/2018 9:59 AM Admitting Physician: Mayco Rizvi MD Discharge Physician: Darell Kowalski MD Consults: Dr. Annmarie Mahmood Primary Discharge [...] 17. The mitral valve is normal. 18. Fqju-zb-lyihb ate eccentric mitral regurgitation is present. 19. [...] anemia of chronic disease who went to [facility] with increasing shortness of breath found to have right pleural effusion who was transfer red to [facility] underwent right-sided diagnostic and therapeutic thoracocentesis [...] hyperkalemia with that. I discussed with the bandmill operator as well regarding not being on [place]/ARB. [...] MONOPCT 8.93 7.18 6.15 Recent Labs Lab 06/01/183 05/31/18 0504 05/30/18 0418 NA 139 139 [...] Component Value Units Date/Time Culture, Body Fluid [[id number]] Collected: 05/26/18 1412 Specimen: Body Fluid from Pleural Fluid Updated: 05/30/18 0733 Specimen Description PLEURAL FLUID GRAM STAIN WBC'S SEEN GRAM STAIN NO ORGANISMS SEEN GRAM STAIN STAIN PERFORMED ON CYTOSPIN CULTURE NO GROWTH 4 DAYS Culture, Body Fluid [[id number]] Collected: 05/26/18 1513 Specimen: Other from Ascites Fluid Updated: 05/30/18 0732 Specimen Description ASCITES FLUID GRAM STAIN STAIN PERFORMED ON CYTOSPIN GRAM STAIN WBC'S SEEN GRAM STAIN NO EPITHELIAL CELLS SEEN GRAM STAIN NO ORGANISMS SEEN CULTURE NO GROWTH 4 DAYS Gram stain [[id number]] Collected: 05/29/18 1256 Specimen: Sputum from Thoracic Fluid Updated: 05/29/18 0349 Specimen Description THORACIC FLUID CULTURE 1+ WBC'S SEEN NO ORGANISMS SEEN Lactate dehydrogenase, body fluid [[id number]] Collected: 05/29/18 1256 Specimen: Body Fluid from Pleural, Right Updated: 05/29/18 1619 FLUID LDH 151 U/L Cholesterol, body fluid [[id number]] Collected: 05/29/18 1256 Specimen: Body Fluid from [...] medications if needed. Follow-Up: Tien Nicholson MD [address], [address] [place] [address] In 1 week Carolina Mahmood DO [address] [place] [id number] In 1 week Daniela Ibarra MD [address] [place] [address] In 1 week Discharge took more than 35 minutes, to include final examination, discussion of admission, and preparation of prescriptions, instructions for ongoing care, follow up and dictation of summary. Signed: DARELL KOWALSKI MD 06/01/2018 9:59 AM Dictation software, Allovue, used which may contain error for similar sounding words even af ter review. Personal communication requested for any clarification. Portions of this chart may have been copied from previous notes for continuity of care purp ose in this encounter Discharge Instructions Darell Kowalski MD - 06/01/201886708-Txydm yourself every day 2-If you notice weight [...] +--------+---------+ + + | ondansetron | Take 8 mg by mouth | | | | | | (ZOFRAN) 8 MG tablet | every 6 (six) hours | | | | 9 | | | as needed for | | | | | | | Nausea. | | | | | + + +--------+---------+ + + | Etelcalcetide HCl | Inject into the | | | | | | (PARSABIV IV) | vein 3 (three) times | | | | 9 | | | a week. | | | | | + + +--------+---------+ + + | hydrALAZINE | Take 1 tablet by | 90 | 3 | 06/02/19 | | | (APRESOLINE) 50 MG | mouth 3 (three) | tablet | | 19 | 9 | | tablet | times daily. | | | | | + + +--------+---------+ + + | | Take 2 tablets by | | | | | | HYDROcodone-acetamin | mouth nightly as | | | | 9 | | ophen (NORCO) 5-325 | needed for Pain. | | | | | | MG per tablet | | | | | | + + +--------+---------+ + + | isosorbide | Take 1 tablet by | 90 | 2 | 06/02/19 | | | dinitrate (ISORDIL) | mouth 3 (three) | tablet | | 19 | 9 | | 40 MG tablet | times daily. | | | | | + + +--------+---------+ + + | metoprolol | Take 1 tablet by | 30 | 2 | 06/03/19 | | | (TOPROL-XL) 25 MG 24 | mouth daily. | tablet | | 19 | 9 | | hr tablet | | | | | | + + +--------+---------+ + + | sucroferric | Take 500 mg by mouth | | | | | | oxyhydroxide | 3 (three) times | | | | 9 | | (VELPHORO) 500 MG | daily with meals. | | | | | | chewable tablet | | | | | | + + +--------+---------+ + + as of this encounter Progress Notes Tino Paiz, SHIP PAINTER HELPER - 06/01/2018 3:06 PM PDTFormatting of this note may be different fro m the original. [facility] Department of Respiratory Chcf Oxygen Evaluation (Evaluation is valid for 48 [...] A VALID ORDER Physician Signature: Date: Time: Antonio Pabon MD - 06/01/2018 10:52 AM PDTFormatting of this note may be different from the original. [facility] Service: NEPHROLOGY Dialysis/ Progress Note Dara Toño Louise 23 y.o. [id number] 4441/[id number] female [facility] Day: LOS: 6 days Patient with PMH [...] AV FISTULA; Surgeon: Rik Simon MD; Location: [facility] OR; Service: Vascula r; Laterality: Left; cephalic AV FISTULA REPAIR Left 03/07/2014 Procedure: AV FISTULA - GRAFT REPAIR/REVISION; Surgeon: Rik Simon MD; Location: [facility] IN OR; Service: Vascular; Laterality: Left; DECLOT GRAFT Left 03/07/2014 Procedure: GRAFT - DECLOT; Surgeon: Rik Simon MD; Location: [facility] OR; Service: Vas cular; Laterality: Left; DIALYSIS FISTULA CREATION N/A 04/08/2014 Procedure: DIALYSIS CATHETER - INSERTION; Surgeon: Rik Simon MD; Location: [facility] ; Service: Vascular; Laterality: N/A; tunneled catheter LAPAROSCOPIC PERITONEAL DIALYSIS CATHETER INSERTION x2 LAPAROSCOPIC PERITONEAL DIALYSIS CATHETER INSERTION Right 07/2013 current dialysis access MWF dialysis RENAL BIOPSY SUPERFICIALIZATION OF AV FISTULA Left 06/24/2014 Procedure: AV FISTULA - SUPERFICIALIZATION; Surgeon: Rik Simon MD; Location: [facility] OR; Service: Vascular; Laterality: Left; History [...] radiologist report and is used for image Diurnala Bit[employer] only Us Abdomen Limited Result Date: 05/28/2018 [...] Adult Complete Result Date: 05/27/2018 Patient Name: ADRA LOUISE Date of : 1995 Maryjane P carloscian: Robel Yusuf MD ____ INDICATIONS SOB CONCLUSIONS [...] 17. The mitral valve is normal. 18. Tgnz-ow-bfhyalcl eccentric mitral regurgitation i s present. 19. [...] mitral valve is normal. Mitral Kait ve: Kyee-yh-qcpujcgc eccentric mitral regurgitation is present. Tricuspid Valve: [...] maxP.08 mmHg TR Vmax: 2.7 4 m/s Stock Analyst: MOO Authenticated by: Robel Yusuf MD Report [...] 17. The mitral valve is normal. 18. Wvrd-on-hujmx ate eccentric mitral regurgitation is present. 19. [...] pleural spac e is punctured with an 8-Marshallese thoracentesis catheter. Fluid is aspirated without complicat [...] DETAIL, VERBALIZ ES UNDERSTANDING ANTONIO PABON MD 06/01/2018 TIEN NICHOLSON Seen earlier and charting completed later Dictation software, Allovue, used which may contain error for similar sounding words even af ter review. Personal communication requested for any clarification. Portions of my notes may have been carried over for continuity of care. René Anguiano MD - 05/31/2018 11:32 AM [...] put on "an antibiotic" for pneumonia at [facility] ED. Was throwing up & could [...] the prelim submitted orders, MWF No acute SLEEVE BOTTOM FELLER indication ESTEFANY as indicated with HD Protein [...] note may be different from pierre coleman. [facility] Service: Hospitalist Progress Note Pt: Dara Louise AGE/SEX: 23 y.o. female ROOM: [facility]/4441-1 : 1995 PCP: TIEN NICHOLSON ADMIT DATE: 05/26/2018 TODAY'S DATE: 05/31/2018 Hospital Day/Hospital Course: LOS: [address] Belcher 23-year-old female with past medical history of end-stage renal disease on hemodialysis Mon, hypertension, anemia of chronic disease who went to [facility] with increasing shortness of breath found to have right pleural effusion who was transfer red to [facility] underwent right-sided diagnostic and therapeutic thoracocentesis [...] Component Value Units Date/Time Culture, Body Fluid [[id number]] Collected: 05/26/18 1412 Specimen: Body Fluid from Pleural Fluid Updated: 05/30/18 0733 Specimen Description PLEURAL FLUID GRAM STAIN WBC'S SEEN GRAM STAIN NO ORGANISMS SEEN GRAM STAIN STAIN PERFORMED ON CYTOSPIN CULTURE NO GROWTH 4 DAYS Culture, Body Fluid [[id number]] Collected: 05/26/18 1513 Specimen: Other from Ascites Fluid Updated: 05/30/18 0732 Specimen Description ASCITES FLUID GRAM STAIN STAIN PERFORMED ON CYTOSPIN GRAM STAIN WBC'S SEEN GRAM STAIN NO EPITHELIAL CELLS SEEN GRAM STAIN NO ORGANISMS SEEN CULTURE NO GROWTH 4 DAYS Gram stain [[id number]] Collected: 05/29/18 1256 Specimen: Sputum from Thoracic Fluid Updated: 05/29/18 2339 Specimen Description THORACIC FLUID CULTURE 1+ WBC'S SEEN NO ORGANISMS SEEN Lactate dehydrogenase, body fluid [[id number]] Collected: 05/29/18 1256 Specimen: Body Fluid from Pleural, Right Updated: 05/29/18 1619 FLUID LDH 151 U/L Cholesterol, body fluid [[id number]] Collected: 05/29/18 1256 Specimen: Body Fluid from Pleural, Right Updated: 05/29/18 1619 FLUID CHOLESTEROL 56 mg/dL Sputum culture [[id number]] Collected: 05/27/182014 Specimen: Sputum from Sputum Updated: [...] 17. The mitral valve is normal. 18. Netg-uk-jdkxe ate eccentric mitral regurgitation is present. 19. [...] anemia of chronic disease who went to [facility] with increasing shortness of breath due to acute congestive heart failure Acute systolic congestive heart failure with Pleural Effusion: Admitted with acute systolic congestive heart failure with bilateral pleural effusion stat us post thoracentesis 2. Her breathing has improved. She is talking to me appropriately. N ot in any kind of distress. card services specialist to initiate the discharge plan. [...] MD, FACP 05/31/2018 9:42 AM Dictation software, Allovue, used which may contain error for similar sounding words even af ter review. Personal communication requested for any clarification. Portions of this chart may have been copied from previous notes for continuity of care purp Darell Segundo MD - 05/30/2018 9:09 AM PDTFormatting of this note may be different from pierre coleman. [facility] Service: Hospitalist Progress Note Pt: Dara Louise AGE/SEX: 23 y.o. female ROOM: 4441/4441-1 : 1995 PCP: TIEN NICHOLSON ADMIT DATE: 05/26/2018 TODAY'S DATE: 05/30/2018 Hospital Day/Hospital Course: LOS: [address] Belcher 23-year-old female with past medical history of end-stage renal disease on hemodialysis Mon, hypertension, anemia of chronic disease who went to [facility] with increasing shortness of breath found to have right pleural effusion who was transfer red to [facility] underwent right-sided diagnostic and therapeutic thoracocentesis [...] Component Value Units Date/Time Culture, Body Fluid [[id number]] Collected: 05/26/18 1412 Specimen: Body Fluid from Pleural Fluid Updated: 05/30/18 0733 Specimen Description PLEURAL FLUID GRAM STAIN WBC'S SEEN GRAM STAIN NO ORGANISMS SEEN GRAM STAIN STAIN PERFORMED ON CYTOSPIN CULTURE NO GROWTH 4 DAYS Culture, Body Fluid [[id number]] Collected: 05/26/18 1513 Specimen: Other from Ascites Fluid Updated: 05/30/18 0732 Specimen Description ASCITES FLUID GRAM STAIN STAIN PERFORMED ON CYTOSPIN GRAM STAIN WBC'S SEEN GRAM STAIN NO EPITHELIAL CELLS SEEN GRAM STAIN NO ORGANISMS SEEN CULTURE NO GROWTH 4 DAYS Gram stain [[id number]] Collected: 05/29/18 125 Specimen: Sputum from Thoracic Fluid Updated: 05/29/18 2339 Specimen Description THORACIC FLUID CULTURE 1+ WBC'S SEEN NO ORGANISMS SEEN Lactate dehydrogenase, body fluid [[id number]] Collected: 05/29/18 1256 Specimen: Body Fluid from Pleural, Right Updated: 05/29/18 1619 FLUID LDH 151 U/L Cholesterol, body fluid [[id number]] Collected: 05/29/18 125 Specimen: Body Fluid from Pleural, Right Updated: 05/29/18 161 FLUID CHOLESTEROL 56 mg/dL Sputum culture [[id number]] Collected: 05/27/182014 Specimen: Sputum from Sputum Updated: [...] 17. The mitral valve is normal. 18. Datn-mv-soibp ate eccentric mitral regurgitation is present. 19. [...] anemia of chronic disease who went to [facility] with increasing shortness of breath due [...] MD, FACP 05/30/2018 9:10 AM Dictation software, Allovue, used which may contain error for similar sounding words even af ter review. Personal communication requested for any clarification. Portions of this chart may have been copied from previous notes for continuity of care purp Carolina Camarillo, DO - 05/29/2018 7:56 PM PDTFormatting of this note may be different from th e original. [facility] Service: Cardiology Progress Note Hospital Day: [...] Last 3 Shifts: 05/28 0700 - 05/29 1858 In: 1240 [P.O.:240] Out: [...] with coronary angiogram as an outpatient. Carolina Mahmood, 05/29/2018Anthony Belcher MD - 05/29/2018 1:43 PM PDTFormatting of this note may be differe nt from the original. Hospitalist Progress Note Dara Louise 23 y.o. [id number] 4441/4441-1 female [facility] Day: LOS: 3 days Patient Summary: 23-year-old female with past medical history of end-stage renal dis ease on hemodialysis Monday, hypertension, anemia of chronic disease who we nt to [facility] with increasing shortness of breath found to have right pleural e ffusion who was transferred to [facility] underwent right-sided diagnostic and therapeu tic [...] (36.8 C)] 97.6 F (36.4 C) (05/29 1314) BP: (111-137)/(59-85) 133/84 (05/29 1314) Heart Rate: [66-88] 75 (05/29 1238) Resp: [17-20] 20 (05/29 1314) SpO2: [91 %-100 %] 100 % (05/29 1314) I&O Detailed Table: Intake/Output Summary (Last 24 [...] Value Units Date/Time Lactate dehydrogenase, body fluid [[id number]] Collected: 05/29/18 1256 Specimen: Body Fluid from Pleural, Right Updated: 05/29/18 1315 Cholesterol, body fluid [[id number]] Collected: 05/29/18 125 Specimen: Body Fluid from Pleural, Right Updated: 05/29/18 1315 Gram stain [[id number]] Collected: 05/29/18 125 Specimen: Sputum from OTHR-w source desc (F6) Updated: 05/29/18 1309 Sputum culture [[id number]] Collected: 05/27/182014 Specimen: Sputum from Sputum Updated: 05/29/18 0947 Specimen Description SPUTUM GRAM STAIN LESS THAN 10 WBCS/LPF GRAM STAIN LESS THAN 10 SEC/LPF GRAM STAIN NO ORGANISMS SEEN CULTURE 1+ NORMAL UPPER RESPIRATORY ALESSANDRO HIV 1/2 Ab reflex [[id number]] Collected: 05/28/18 1236 Specimen: Blood Updated: 05/29/18 0942 HIV1/HIV2 NON REACTIVE Protime-INR [[id number]] Collected: 05/29/18 0852 Specimen: Blood Updated: 05/29/18 0940 INR 1.5 APTT [[id number]] Collected: 05/29/18 0852 Specimen: Blood Updated: 05/29/18 0940 APTT 29 seconds Culture, Body Fluid [[id number]] Collected: 05/26/18 1513 Specimen: Other from Ascites Fluid Updated: 05/29/18 0920 Specimen Description ASCITES FLUID GRAM STAIN STAIN PERFORMED ON CYTOSPIN GRAM STAIN WBC'S SEEN GRAM STAIN NO EPITHELIAL CELLS SEEN GRAM STAIN NO ORGANISMS SEEN CULTURE NO GROWTH 3 DAYS Culture, Body Fluid [[id number]] Collected: 05/26/18 1412 Specimen: Body Fluid from Pleural Fluid Updated: 05/29/18 0918 Specimen Description PLEURAL FLUID CULTURE NO GROWTH 3 DAYS Comprehensive metabolic panel [[id number]] (Abnormal) Collected: 05/29/18 0457 Specimen: Blood Updated: [...] mL/min/1.73m2 CBC W/Auto Diff (Reflex to Manual) [[id number]] (Abnormal) Collected: 05/29/18456 Specimen: Blood Updated: 05/29/18612 [...] 0.05 K/uL MORPHOLOGY 2+ hCG, serum, qualitative [[id number]] Collected: 05/28/18922 Specimen: Blood Updated: 05/28/18 1950 TEST,SERUM NEGATIVE C-reactive protein [[id number]] (Abnormal) Collected: 05/28/18922 Specimen: Blood Updated: 05/28/18 1941 CRP 5.1 (H) mg/dL Sedimentation rate, automated [[id number]] Collected: 05/28/18922 Specimen: Blood Updated: 05/28/18 1734 ESR 2 mm/Hr Hepatitis panel,acute [[id number]] Collected: 05/28/18 1236 Specimen: Blood Updated: 05/28/18 1650 HAV AB,IGM NON REACTIVE HEP B SURFACE AG NON REACTIVE ANTI HEP B CORE,IGM NON REACTIVE HEPATITIS C NON REACTIVE HEPATITIS INTERP No serologic evidence of HAV, HBV, or HCV infection. Troponin I [[id number]] Collected: 05/28/18922 Specimen: Blood Updated: 05/28/18 1437 TROPONIN I 0.034 ng/mL Troponin I [[id number]] Collected: 05/28/18 1359 Specimen: Blood Updated: 05/28/18 1437 TROPONIN I 0.037 ng/mL Renal function panel [[id number]] (Abnormal) Collected: 05/28/18 1209 Specimen: Blood from Blood Updated: 05/28/18 1302 SODIUM 141 mmol/L POTASSIUM 4.3 mmol/L CHLORIDE 101 mmol/L CO2 29 mmol/L ANION GAP AGAP 15 mmol/L GLUCOSE 78 mg/dL BUN 43 (H) mg/dL CREATININE 7.97 (H) mg/dL CALCIUM 9.1 mg/dL Albumin 3.6 g/dL PHOSPHORUS 6.3 (H) mg/dL EGFR 6 (L) mL/min/1.73m2 CBC W/Auto Diff (Reflex to Manual) [[id number]] (Abnormal) Collected: 05/28/18922 Specimen: Blood Updated: 05/28/18 [...] 0.05 K/uL MORPHOLOGY 1+ Comprehensive metabolic panel [[id number]] (Abnormal) Collected: 05/28/18922 Specimen: Blood Updated: 05/28/18 [...] (H) U/L EGFR 6 (L) mL/min/1.73m2 TSH [[id number]] Collected: 05/28/18 09 Specimen: Blood Updated: 05/28/18 1210 TSH 1.270 uIU/mL Pathologist consult [[id number]] Collected: 05/26/18 1412 Updated: 05/28/18 1113 Pathologist Consult -- Hepatitis panel, chronic [[id number]] (Abnormal) Collected: 05/27/181757 Updated: 05/27/182030 Hep A Total Ab REACTIVE (A) HEP B SURFACE AG NON REACTIVE HEP B CORE AB,TOTAL NON REACTIVE HEP B SURFACE ANTIBODY 3.27 (H) IV HEPATITIS C NON REACTIVE HEPATITIS INTERP Current or past HAV infection. Past HBV infection or vaccination. No ser ologic evidence of HCV infection. CBC w/auto diff (reflex to manual) [[id number]] (Abnormal) Collected: 05/27/18424 Specimen: Blood Updated: 05/27/18 [...] K/uL MORPHOLOGY 2+ Platelet Estimate DECREASED Phosphorus [[id number]] (Abnormal) Collected: 05/27/18424 Specimen: Blood Updated: 05/27/18 0629 PHOSPHORUS 8.0 (H) mg/dL Basic Metabolic Panel [[id number]] (Abnormal) Collected: 05/27/18424 Specimen: Blood Updated: 05/27/18628 SODIUM 135 mmol/L POTASSIUM 5.9 (H) mmol/L CHLORIDE 96 (L) mmol/L CO2 25 mmol/L ANION GAP AGAP 20 mmol/L GLUCOSE 74 mg/dL BUN 51 (H) mg/dL CREATININE 9.2 (H) mg/dL BUN/CREAT 6 CALCIUM 9.4 mg/dL EGFR 5 (L) mL/min/1.73m2 Magnesium [[id number]] (Abnormal) Collected: 05/27/18424 Specimen: Blood Updated: 05/27/18628 MAGNESIUM 2.7 (H) mg/dL Brain natriuretic peptide [[id number]] (Abnormal) Collected: 05/27/18424 Specimen: Blood Updated: 05/27/18 0546 BRAIN NATRIURETIC PEPTIDE 1,153.92 (H) pg/mL Respiratory Filmarray [[id number]] (Abnormal) Collected: 05/26/181805 Specimen: Nasopharynx/Oropharynx Updated: 05/26/182141 [...] performed by Molecular Methodology MRSA by PCR [[id number]] Collected: 05/26/181805 Specimen: Nasopharyngeal from Nares(Nose) Updated: 05/26/182025 SOURCE NARES(NOSE) MRSA PCR NEGATIVE Procalcitonin [[id number]] (Abnormal) Collected: 05/26/181726 Updated: 05/26/18 183 PROCALCITONIN 0.76 (H) ng/mL Albumin, Body Fluid [[id number]] Collected: 05/26/18 141 Specimen: Body Fluid from Lung, Right Lower Lobe Updated: 05/26/181728 FLUID ALBUMIN 2.3 g/dL Total Protein, Body Fluid [[id number]] Collected: 05/26/18 141 Specimen: Body Fluid from Lung, Right Lower Lobe Updated: 05/26/18 1729 FLUID TOTAL PROTEIN 4.2 g/dL FLUID TP SOURCE PLEURAL FLUID Cell count, Body Fluid [[id number]] Collected: 05/26/18 141 Specimen: Body Fluid from Lung, Right Lower Lobe Updated: 05/26/18 1708 FLUID TYPE PLEURAL FLUID COLOR SAMMIE APPEARANCE CLOUDY RBC'S 3,000 /mm3 TOTAL NUCLEATED CELLS 253 /mm3 NEUTROPHILS 22 % LYMPHOCYTES 8 % MONOCYTES/MACROPHAGES 65 % Mesothelial Cells 5 % CELLS COUNTED 100 pH, Body Fluid [[id number]] Collected: 05/26/18 141 Specimen: Body Fluid from [...] radiologist report and is used for image Diurnala BitDefender only Us Abdomen Limited Result Date: 05/28/2018 [...] DARA LOUISE Date of : 1995 Maryjane askewsician: Robel Yusuf MD ____ INDICATIONS SOB CONCLUSIONS [...] 17. The mitral valve is normal. 18. Afog-zk-jcakvmmn eccentric mitral regurgitation i s present. 19. [...] mitral valve is normal. Mitral Kait ve: Ymap-hd-hddikqig eccentric mitral regurgitation is present. Tricuspid Valve: [...] maxP.08 mmHg TR Vmax: 2.7 4 m/s Stock Analyst: Authenticated by: Robel Yusuf MD Report Date/Time: [...] 17. The mitral valve is normal. 18. Zcgs-lg-lksyr ate eccentric mitral regurgitation is present. 19. [...] from th e original. Hospital Problem List: Active Problems: ESRD on [...] put on "an antibiotic" for pneumonia at [facility] ED. Was throwing up & could [...] (L) 05/29/2018 HGB 11.9 05/29/2018 Assessment: Ms. Loiuse is a 23 y.o. female patient with ESRD, HD. Longstanding history of non-adheren ce to dialysis or diet restrictions Presented with: worsening dyspnea, at rest the day of presentation Admitted with: symptomatic large right pleural effusion Anemia of ESRD hypoalb Mild hypermag hyperphos Recommendations: Next dialysis treatment per the prelim submitted orders, MWF No acute SLEEVE BOTTOM FELLER indication ESTEFANY as indicated with HD Protein [...] Hospitalist Progress Note Dara Louise 23 y.o. [id number] 4441/4441-1 female [facility] Day: LOS: 2 days Patient Summary: 23-year-old female with past medical history of end-stage renal dis ease on hemodialysis Monday, hypertension, anemia of chronic disease who we nt to [facility] with increasing shortness of breath found to have right pleural e ffusion who was transferred to [facility] underwent right-sided diagnostic and therapeu tic [...] (36.7 C)] 97.1 F (36.2 C) (05/28 034) BP: (110-131)/(50-91) 116/71 (05/28 0645) Heart Rate: [69-87] 70 (05/28 744) Resp: [...] Component Value Units Date/Time Culture, Body Fluid [[id number]] Collected: 05/26/18 1513 Specimen: Other from Ascites Fluid Updated: 05/28/18 1225 Specimen Description ASCITES FLUID GRAM STAIN STAIN PERFORMED ON CYTOSPIN GRAM STAIN WBC'S SEEN GRAM STAIN NO EPITHELIAL CELLS SEEN GRAM STAIN NO ORGANISMS SEEN CULTURE NO GROWTH 2 DAYS Culture, Body Fluid [[id number]] Collected: 05/26/181411 Specimen: Body Fluid from Pleural Fluid Updated: 05/28/18 1223 Specimen Description PLEURAL FLUID CULTURE NO GROWTH 2 DAYS Comprehensive metabolic panel [[id number]] (Abnormal) Collected: 05/28/18922 Specimen: Blood Updated: 05/28/18 [...] (H) U/L EGFR 6 (L) mL/min/1.73m2 TSH [[id number]] Collected: 05/28/18922 Specimen: Blood Updated: 05/28/18 1210 TSH 1.270 uIU/mL Pathologist consult [[id number]] Collected: 05/26/18 141 Updated: 05/28/18 1113 Pathologist Consult -- Troponin I [[id number]] Collected: 05/28/18922 Specimen: Blood Updated: 05/28/18 1055 CBC W/Auto Diff (Reflex to Manual) [[id number]] Collected: 05/28/18922 Specimen: Blood Updated: 05/28/18938 Sputum culture [[id number]] Collected: 05/27/182014 Specimen: Sputum from Sputum Updated: 05/28/18902 Specimen Description SPUTUM GRAM STAIN LESS THAN 10 WBCS/LPF GRAM STAIN LESS THAN 10 SEC/LPF GRAM STAIN NO ORGANISMS SEEN CULTURE CULTURE IN PROGRESS Hepatitis panel, chronic [[id number]] (Abnormal) Collected: 05/27/181757 Updated: 05/27/182030 Hep A Total Ab REACTIVE (A) HEP B SURFACE AG NON REACTIVE HEP B CORE AB,TOTAL NON REACTIVE HEP B SURFACE ANTIBODY 3.27 (H) IV HEPATITIS C NON REACTIVE HEPATITIS INTERP Current or past HAV infection. Past HBV infection or vaccination. No ser ologic evidence of HCV infection. CBC w/auto diff (reflex to manual) [[id number]] (Abnormal) Collected: 05/27/18424 Specimen: Blood Updated: 05/27/18 07 WBC 6.62 K/uL RBC 3.48 (L) M/uL [...] K/uL MORPHOLOGY 2+ Platelet Estimate DECREASED Phosphorus [[id number]] (Abnormal) Collected: 05/27/18424 Specimen: Blood Updated: 05/27/18628 PHOSPHORUS 8.0 (H) mg/dL Basic Metabolic Panel [[id number]] (Abnormal) Collected: 05/27/18424 Specimen: Blood Updated: 05/27/18628 SODIUM 135 mmol/L POTASSIUM 5.9 (H) mmol/L CHLORIDE 96 (L) mmol/L CO2 25 mmol/L ANION GAP AGAP 20 mmol/L GLUCOSE 74 mg/dL BUN 51 (H) mg/dL CREATININE 9.2 (H) mg/dL BUN/CREAT 6 CALCIUM 9.4 mg/dL EGFR 5 (L) mL/min/1.73m2 Magnesium [[id number]] (Abnormal) Collected: 05/27/18424 Specimen: Blood Updated: 05/27/18 0629 MAGNESIUM 2.7 (H) mg/dL Brain natriuretic peptide [[id number]] (Abnormal) Collected: 05/27/18424 Specimen: Blood Updated: 05/27/18 0546 BRAIN NATRIURETIC PEPTIDE 1,153.92 (H) pg/mL Respiratory Filmarray [[id number]] (Abnormal) Collected: 05/26/181805 Specimen: Nasopharynx/Oropharynx Updated: 05/26/182141 [...] performed by Molecular Methodology MRSA by PCR [[id number]] Collected: 05/26/181805 Specimen: Nasopharyngeal from Nares(Nose) Updated: 05/26/182025 SOURCE NARES(NOSE) MRSA PCR NEGATIVE Procalcitonin [[id number]] (Abnormal) Collected: 05/26/181726 Updated: 05/26/18 183 PROCALCITONIN 0.76 (H) ng/mL Albumin, Body Fluid [[id number]] Collected: 05/26/18 141 Specimen: Body Fluid from Lung, Right Lower Lobe Updated: 05/26/181728 FLUID ALBUMIN 2.3 g/dL Total Protein, Body Fluid [[id number]] Collected: 05/26/18 141 Specimen: Body Fluid from Lung, Right Lower Lobe Updated: 05/26/181728 FLUID TOTAL PROTEIN 4.2 g/dL FLUID TP SOURCE PLEURAL FLUID Cell count, Body Fluid [[id number]] Collected: 05/26/18 1412 Specimen: Body Fluid from Lung, Right Lower Lobe Updated: 05/26/18 1708 FLUID TYPE PLEURAL FLUID COLOR SAMMIE APPEARANCE CLOUDY RBC'S 3,000 /mm3 TOTAL NUCLEATED CELLS 253 /mm3 NEUTROPHILS 22 % LYMPHOCYTES 8 % MONOCYTES/MACROPHAGES 65 % Mesothelial Cells 5 % CELLS COUNTED 100 pH, Body Fluid [[id number]] Collected: 05/26/18 1412 Specimen: Body Fluid from Lung, Right Lower Lobe Updated: 05/26/18 1508 FLUID PH 7.45 Procalcitonin [[id number]] (Abnormal) Collected: 05/26/18 1214 Updated: 05/26/18 1330 PROCALCITONIN 0.56 (H) ng/mL Cardiac Panel [[id number]] (Abnormal) Collected: 05/26/18 1214 Updated: 05/26/18 1312 [...] ng/mL CK-MB Index 2.7 Brain natriuretic peptide [[id number]] (Abnormal) Collected: 05/26/18 1214 Updated: 05/26/18 1254 [...] radiologist report and is used for image Diurn[facility] [employer] only Echo Cardiac Adult Complete Result Date: [...] 17. The mitral valve is normal. 18. Ofex-qk-namvlidj eccentric mitral regurgitation i s present. 19. [...] mitral valve is normal. Mitral Kait ve: Nqxa-um-armfrazs eccentric mitral regurgitation is present. Tricuspid Valve: [...] maxP.08 mmHg TR Vmax: 2.7 4 m/s Stock Analyst: MOO Authenticated by: Robel Yusuf MD Report [...] 17. The mitral valve is normal. 18. Qrpl-ll-pevlx ate eccentric mitral regurgitation is present. 19. [...] Hospitalist Progress Note Dara Louise 23 y.o. [id number] female [facility] Day: LOS: 1 day Patient Summary: 23-year-old female with past medical history of end-stage renal dis ease on hemodialysis Monday, hypertension, anemia of chronic disease who we nt to [facility] with increasing shortness of breath found to have right pleural e ffusion who was transferred to [facility] underwent right-sided diagnostic and therapeu tic [...] Date/Time CBC w/auto diff (reflex to manual) [[id number]] (Abnormal) Collected: 05/27/18424 Specimen: Blood Updated: 05/27/18710 [...] K/uL MORPHOLOGY 2+ Platelet Estimate DECREASED Phosphorus [[id number]] (Abnormal) Collected: 05/27/18424 Specimen: Blood Updated: 05/27/18628 PHOSPHORUS 8.0 (H) mg/dL Basic Metabolic Panel [[id number]] (Abnormal) Collected: 05/27/18424 Specimen: Blood Updated: 05/27/18628 SODIUM 135 mmol/L POTASSIUM 5.9 (H) mmol/L CHLORIDE 96 (L) mmol/L CO2 25 mmol/L ANION GAP AGAP 20 mmol/L GLUCOSE 74 mg/dL BUN 51 (H) mg/dL CREATININE 9.2 (H) mg/dL BUN/CREAT 6 CALCIUM 9.4 mg/dL EGFR 5 (L) mL/min/1.73m2 Magnesium [[id number]] (Abnormal) Collected: 05/27/18424 Specimen: Blood Updated: 05/27/18 0629 MAGNESIUM 2.7 (H) mg/dL Brain natriuretic peptide [[id number]] (Abnormal) Collected: 05/27/18424 Specimen: Blood Updated: 05/27/18 0546 BRAIN NATRIURETIC PEPTIDE 1,153.92 (H) pg/mL Respiratory Filmarray [[id number]] (Abnormal) Collected: 05/26/181805 Specimen: Nasopharynx/Oropharynx Updated: 05/26/182141 [...] performed by Molecular Methodology MRSA by PCR [[id number]] Collected: 05/26/181805 Specimen: Nasopharyngeal from Nares(Nose) Updated: 05/26/182025 SOURCE NARES(NOSE) MRSA PCR NEGATIVE Procalcitonin [[id number]] (Abnormal) Collected: 05/26/18 1727 Updated: 05/26/18 1839 PROCALCITONIN 0.76 (H) ng/mL Culture, Body Fluid [[id number]] Collected: 05/26/18 141 Specimen: Body Fluid from Pleural Fluid Updated: 05/26/18 181 Pathologist consult [[id number]] Collected: 05/26/181411 Updated: 05/26/18 1742 Albumin, Body Fluid [[id number]] Collected: 05/26/18 141 Specimen: Body Fluid from Lung, Right Lower Lobe Updated: 05/26/18 172 FLUID ALBUMIN 2.3 g/dL Total Protein, Body Fluid [[id number]] Collected: 05/26/18 1412 Specimen: Body Fluid from Lung, Right Lower Lobe Updated: 05/26/18 1729 FLUID TOTAL PROTEIN 4.2 g/dL FLUID TP SOURCE PLEURAL FLUID Cell count, Body Fluid [[id number]] Collected: 05/26/18 1412 Specimen: Body Fluid from Lung, Right Lower Lobe Updated: 05/26/18 1708 FLUID TYPE PLEURAL FLUID COLOR SAMMIE APPEARANCE CLOUDY RBC'S 3,000 /mm3 TOTAL NUCLEATED CELLS 253 /mm3 NEUTROPHILS 22 % LYMPHOCYTES 8 % MONOCYTES/MACROPHAGES 65 % Mesothelial Cells 5 % CELLS COUNTED 100 Culture, Body Fluid [[id number]] Collected: 05/26/18 1513 Specimen: Other from Ascites Fluid Updated: 05/26/18 1631 Specimen Description ASCITES FLUID GRAM STAIN STAIN PERFORMED ON CYTOSPIN GRAM STAIN WBC'S SEEN GRAM STAIN NO EPITHELIAL CELLS SEEN GRAM STAIN NO ORGANISMS SEEN CULTURE PENDING pH, Body Fluid [[id number]] Collected: 05/26/18 141 Specimen: Body Fluid from Lung, Right Lower Lobe Updated: 05/26/18 1508 FLUID PH 7.45 Procalcitonin [[id number]] (Abnormal) Collected: 05/26/18 1214 Updated: 05/26/18 1330 PROCALCITONIN 0.56 (H) ng/mL Cardiac Panel [[id number]] (Abnormal) Collected: 05/26/18 1214 Updated: 05/26/18 1312 [...] ng/mL CK-MB Index 2.7 Brain natriuretic peptide [[id number]] (Abnormal) Collected: 05/26/18 1214 Updated: 05/26/18 1254 [...] report and is used for image stora [employer] only PROBLEM LIST Active Problems: ESRD on [...] heparin ANTHONY BELCHER MD 05/27/2018 Jae Gutierres, [facility] - 05/26/2018 6:05 PM PDTRenal Dosing Monitoring: S: Renal dose monitoring per protocol. O: HD patient A: No adjustments needed at this time. P: Pharmacy will continue monitoring patient for appropriate dosing based on renal functio n. Pharmacist: Jae Gutierres, PharmD in this encounter Plan of Treatment +--------+---------+ + + + | Date | Type | Specialty | Care Team | Description | +--------+---------+ + + + | 11/22/ | Office | Pulmonology | Denny Alexander | | | 2018 | Visit | | Deny Briggs MD [address] | | | | | [address] | | | | | | [place] [address] | | | | | | [phone] | | | | | | | [...] the | | | | | [facility] traceable | | | | | equation.Testing | | | | | performed at [facility], [address] | | | | | [facility], | | | | | [place] [address] | | | + + + + + + + | Specimen | + + | Blood | + + + + + + + | Performing | Address | City/State/Zipcode | Phone Number | | Organization | | | | + + + + + | [facility] | [address] | [place] [address] | [phone] | | LABORATORY | [address] | | [...] performed | | | | | at [facility], [address] | | | | | [facility], | | | | | [place] [address] | | | | |Testing performed at [facility], [address] [place] [address] | | | | | | | | + + + + + + + | Specimen | + + | Blood | + + + + + + + | Performing | Address | City/State/Zipcode | Phone Number | | Organization | | | | + + + + + | [facility] | [address] | [place] [address] | [phone] | | LABORATORY | [address] | | [...] | | | | | performed at [facility], [address] | | | | | [facility], | | | | | [place] [address] | | | + + + + + + + | Specimen | + + | Blood | + + + + + + + | Performing | Address | City/State/Zipcode | Phone Number | | Organization | | | | + + + + + | [facility] | [address] | [place] [address] | [phone] | | LABORATORY | [address] | | [...] performed | | | | | at [facility], [address] | | | | | [facility], | | | | | [place] [address] | | | | |Testing performed at [facility], [address] [facility], [place] [address] | | | | | | | | + + + + + + + | Specimen | + + | Blood | + + + + + + + | Performing | Address | City/State/Zipcode | Phone Number | | Organization | | | | + + + + + | [facility] | [address] | [place] [address] | [phone] | | LABORATORY | [address]vd. | | [...] | | systolic CHF (congestive heart failure) ([facility]) Transaminitis | | | The patient is [...] | | | antibiotic" for pneumonia at [facility]. Was throwing up & could [...] | | | | | performed at [facility], [address] | | | | | [facility], | | | | | [place] [address] | | | + + + + + + + | Specimen | + + | Blood | + + + + + + + | Performing | Address | City/State/Zipcode | Phone Number | | Organization | | | | + + + + + | [facility] | [address] | [place] [address] | [phone] | | LABORATORY | [address] | | [...] performed | | | | | at [facility], [address] | | | | | [address], | | | | | [place] [address] | | | | |Testing performed at [facility], [address] [facility] [place] [address] | | | | | | | | + + + + + + + | Specimen | + + | Blood | + + + + + + + | Performing | Address | City/State/Zipcode | Phone Number | | Organization | | | | + + + + + | [facility] | [address] | [place] [address] | [phone] | | LABORATORY | [address] | | [...] ONE VIEW CLINICAL INFORMATION: Thoracentesis COMPARISON: | SURIC | | XR CHEST 2 VIEW FRONTAL [...] | + + + + + | [facility] | [address] | [facility] [address] | | + + + + + Cholesterol, body fluid (05/29/2018 12:56 PM) + + + + + | Component | Value | Ref Range | Performed At | + + + + + | FLUID CHOLESTEROL | 56Comment: This is not a | mg/dL | [facility] | | | tobacco wetter validated | | LABORATORY | | | sample type for this | | | | | method. No reference | | | | | ranges have been | | | | | established.Testing | | | | | performed at [facility], [address] | | | | | [facility], | | | | | [place] [address] | | | + + + + + + + | Specimen | + + | Body Fluid - | | Pleural, Right | + + + + + + + | Performing | Address | City/State/Zipcode | Phone Number | | Organization | | | | + + + + + | [facility] | [address] | [place] [address] | [phone] | | LABORATORY | [address]. | | | + + + + + Lactate dehydrogenase, body fluid (05/29/2018 12:56 PM) + + + + + | Component | Value | Ref Range | Performed At | + + + + + | FLUID LDH | 151Comment: This is not | U/L | [facility] | | | a tobacco wetter validated | | LABORATORY | | | sample type for this | | | | | method. No reference | | | | | ranges have been | | | | | established.Testing | | | | | performed at [facility], [address] | | | | | [facility], | | | | | [place] [address] | | | + + + + + + + | Specimen | + + | Body Fluid - | | Pleural, Right | + + + + + + + | Performing | Address | City/State/Zipcode | Phone Number | | Organization | | | | + + + + + | [facility] | [address] | [place] [address] | [phone] | | LABORATORY | [address] | | [...] + + + + + | [facility] | [address] | [place] [address] | [phone] | | LABORATORY | [address]vd[address] | | [...] | | space is punctured with an 8-Marshallese thoracentesis catheter. Fluid is | | | [...] the pleural space is punctured with an 8-Marshallese | | thoracentesis catheter. Fluid is aspirated [...] | + + + + + | [facility] | [address] | [place] [address] | | + + + + + APTT (05/29/2018 8:52 AM) + + + + + | Component | Value | Ref Range | Performed At | + + + + + | APTT | 29Comment: Testing | 23 - 32 seconds | [facility] | | | performed at [facility];[address];[place] | | | | | [address] | | | + + + + + + + | Specimen | + + | Blood | + + + + + + + | Performing | Address | City/State/Zipcode | Phone Number | | Organization | | | | + + + + + | [facility] | [address] | [place] [address] | | + + + + + Elizabethime-INR (05/29/2018 8:52 AM) + + + + + | Component | Value | Ref Range | Performed At | + + + + + | INR | 1.5Comment: REFERENCE | | [facility] | | | RANGE:0.9 - | [...] | | | | | performed at [facility];[address] | | | [address];[place] | | | | | [address] | | | + + + + + + + | Specimen | + + | Blood | + + + + + + + | Performing | Address | City/State/Zipcode | Phone Number | | Organization | | | | + + + + + | [facility] | [address] | [place] [address] | | + + + + + [...] SPECIMEN | 65 - 99 mg/dL | [facility] | | | SLIGHTLY HEMOLYZED | | LABORATORY | + + + + + | BUN | 25 | 8 - 25 mg/dL | [facility] | | | | | LABORATORY | + + + + + | CREATININE | 6.0 (H)Comment: SPECIMEN | 0.50 - 1.00 mg/dL | [facility] | | | SLIGHTLY [...] 6.7 | 6.3 - 8.2 g/dL | [facility] | | | | | LABORATORY | + + + + + | Albumin | 3.0 (L) | 3.6 - 5.0 g/dL | [facility] | | | | | LABORATORY | [...] | | | | | performed at [facility], [address] | | | | | [facility], | | | | | [place] [address] | | | + + + + + + + | Specimen | + + | Blood | + + + + + + + | Performing | Address | City/State/Zipcode | Phone Number | | Organization | | | | + + + + + | [facility] | [address] | [place] [address] | [phone] | | LABORATORY | [address] | | [...] performed | | | | | at [facility], [address] | | | | | [facility], | | | | | [place] [address] | | | | |Testing performed at [facility], [address] [facility], [place] [address] | | | | | | | | + + + + + + + | Specimen | + + | Blood | + + + + + + + | Performing | Address | City/State/Zipcode | Phone Number | | Organization | | | | + + + + + | [facility] | [address] | [place] [address] | [phone] | | LABORATORY | [address] | | [...] ABDOMEN, LIMITED CLINICAL INFORMATION: Abdominal pain. | [facility] | | COMPARISON: IR AV FISTULAGRAM IMAGING [...] + + + + | [facility] | [address] | [place] [address] | | + + + + + Troponin I (05/28/2018 1:59 PM) + + + + + | Component | Value | Ref Range | Performed At | + + + + + | TROPONIN I | 0.037Comment: 0.04 | 0.00 - 0.04 ng/mL | [facility] | | | ng/mL or | [...] performed at | | | | | [facility];[address] [facility] [address] | | | | | [facility];[place] [address] | | | + + + + + + + | Specimen | + + | Blood | + + + + + + + | Performing | Address | City/State/Zipcode | Phone Number | | Organization | | | | + + + + + | [facility] | [address] | [place] [address] | | + + + + + [...] | | | | | performed at [facility], [address] | | | | | [facility], | | | | | [place] [address] | | | + + + + + + + | Specimen | + + | Blood | + + + + + + + | Performing | Address | City/State/Zipcode | Phone Number | | Organization | | | | + + + + + | [facility] | [address] | [place] [address] | [phone] | | LABORATORY | [address] | | [...] performed at | | | | | [facility], [address] | | | | | [place] | | | | | [address] | | | + + + + + + + | Specimen | + + | Blood | + + + + + + + | Performing | Address | City/State/Zipcode | Phone Number | | Organization | | | | + + + + + | [facility] | [address] | [place] [address] | [phone] | | LABORATORY | [address] | | | + + + + + Renal function panel (05/28/2018 12:09 PM) + + + + + | Component | Value | Ref Range | Performed At | + + + + + | SODIUM | 141 | 135 - 145 mmol/L | [facility] | + + + + + | POTASSIUM | 4.3 | 3.5 - 4.9 mmol/L | [facility] | + + + + + | CHLORIDE | 101 | 99 - 109 mmol/L | [facility] | + + + + + [...] 9.1 | 8.5 - 10.5 mg/dL | [facility] | + + + + + | Albumin | 3.6 | 3.6 - 5.0 g/dL | [facility] | + + + + + | PHOSPHORUS | 6.3 (H) | 2.3 - 4.8 mg/dL | [facility] | + + + + + | EGFR | 6 (L)Comment: GFR <60: | >60 mL/min/1.73m2 | [facility] | | | CHRONIC KIDNEY DISEASE, [...] | | | | | performed at [facility];[address];[place] | | | | | [address] | | | + + + + + + + | Specimen | + + | Blood - Blood | + + + + + + + | Performing | Address | City/State/Zipcode | Phone Number | | Organization | | | | + + + + + | [facility] | [address] | [place] [address] | | + + + + + [...] QTC Calculation | 433 | ms | [facility] | | (Bezet) | | | | + + + + + | Calculated P [place] | 24 | degrees | [facility] | + + + + + | Calculated R [place] | 24 | degrees | [facility] EKG | + + + + + | Calculated T [place] | 103 | degrees | [facility] EKG [...] | + + + + + | [facility] | [address] | [place] [address] | | + + + + + hCG, serum, qualitative (05/28/2018 9:23 AM) + + + + + | Component | Value | Ref Range | Performed At | + + + + + | TEST,SERUM | NEGATIVEComment: Testing | NEGATIVE | [facility] | | | performed at [facility], [address] | | LABORATORY | | | [address], | | | | | [place] [address] | | | + + + + + + + | Specimen | + + | Blood | + + + + + + + | Performing | Address | City/State/Zipcode | Phone Number | | Organization | | | | + + + + + | [facility] | [address] | [place] [address] | [phone] | | LABORATORY | [address] | | | + + + + + C-reactive protein (05/28/2018 9:23 AM) + + + + + | Component | Value | Ref Range | Performed At | + + + + + | CRP | 5.1 (H)Comment: Testing | <0.5 mg/dL | [facility] | | | performed at [facility], [address] | | LABORATORY | | | [address], | | | | | [place] [address] | | | + + + + + + + | Specimen | + + | Blood | + + + + + + + | Performing | Address | City/State/Zipcode | Phone Number | | Organization | | | | + + + + + | [facility] | [address] | [place] [address] | [phone] | | LABORATORY | [address] | | | + + + + + Sedimentation rate, automated (05/28/2018 9:23 AM) + + + + + | Component | Value | Ref Range | Performed At | + + + + + | ESR | 2Comment: Testing | 0 - 20 mm/Hr | [facility] | | | performed at [facility], [address] | | LABORATORY | | | [facility] [place], | | | | | [place] [address] | | | + + + + + + + | Specimen | + + | Blood | + + + + + + + | Performing | Address | City/State/Zipcode | Phone Number | | Organization | | | | + + + + + | [facility] | [address] | [place] [address] | [phone] | | LABORATORY | [address] | | | + + + + + TSH (05/28/2018 9:23 AM) + + + + + | Component | Value | Ref Range | Performed At | + + + + + | TSH | 1.270Comment: Testing | 0.450 - 5.100 uIU/mL | [facility] | | | performed at [facility], [address] | | LABORATORY | | | [address], | | | | | [place] [address] | | | + + + + + + + | Specimen | + + | Blood | + + + + + + + | Performing | Address | City/State/Zipcode | Phone Number | | Organization | | | | + + + + + | [facility] | [address] | [place] [address] | [phone] | | LABORATORY | [address] | | | + + + + + Troponin I (05/28/2018 9:23 AM) + + + + + | Component | Value | Ref Range | Performed At | + + + + + | TROPONIN I | 0.034Comment: 0.04 | 0.00 - 0.04 ng/mL | [facility] | | | ng/mL or | [...] performed at | | | | | [facility];[address] [place] [address] | | | | | [facility];[place] [address] | | | + + + + + + + | Specimen | + + | Blood | + + + + + + + | Performing | Address | City/State/Zipcode | Phone Number | | Organization | | | | + + + + + | [facility] | [address] | [facility] [address] | | + + + + + [...] | | | | | performed at [facility], [address] | | | | | [facility], | | | | | [place] [address] | | | + + + + + + + | Specimen | + + | Blood | + + + + + + + | Performing | Address | City/State/Zipcode | Phone Number | | Organization | | | | + + + + + | [facility] | [address] | [place] [address] | [phone] | | LABORATORY | [address] | | [...] performed | | | | | at [facility], [address] | | | | [facility], | | | | | [place] [address] | | | | |Testing performed at [facility], [address] [facility], [place] [address] | | | | | | | | + + + + + + + | Specimen | + + | Blood | + + + + + + + | Performing | Address | City/State/Zipcode | Phone Number | | Organization | | | | + + + + + | [facility] | [address] | [place] [address] | [phone] | | LABORATORY | [address]vd[address] | | [...] PERFORMING LABORATORY: Technical preparation was performed by [employer] | | | [place], [address] [place] [place] [address] | | | (Truck Manager: Matt Claudio D.O.; CLIA#: [id number]). | | | Professional interpretation was performed by [facility], | | | [address] [address] | | | (Truck Manager: Daniel Larson M.D.; CLIA#: [id number]).6 | | | Diagnostician: Marie BROOKS ([facility]) Swing Driver | | | Diagnostician: Anahy Da Silva MD Pathologist Electronically Signed | | | 05/30/2018 | | + + + + +---------+ + + | Performing | Address | City/State/Zipcode | Phone Number | | Organization | | | | + +---------+ + + | [facility] | | | | + +---------+ [...] + + + | [facility] | [address] | [place] [address] | [phone] | | LABORATORY | [address]vd[address] | | [...] | Current or past HAV | | [facility] | | | infection. Past HBV | | LABORATORY | | | infection or | | | | | vaccination. No | | | | | serologic evidence of | | | | | HCV infection.Comment: | | | | | Testing performed at | | | | | [facility], [address] [place] [address] | | | | | [place] | | | | | [address] | | | + + + + + + + + + + | Performing | Address | City/State/Zipcode | Phone Number | | Organization | | | | + + + + + | [facility] | [address] [place] [address] | [place] [address] | [phone] | | LABORATORY | [address] | | [...] valve is normal. 18. | | | Cvap-gv-pdddvkkz eccentric mitral regurgitation is present. 19. | [...] DARA LOUISE Date of : 1995 | [facility] | | Performing Physician: Robel De La [...] valve is normal. 18. | | | Ewao-pa-xrapiooy eccentric mitral regurgitation is present. 19. | [...] is | | | normal. Mitral Valve: Umdd-ni-kvxhawzg eccentric mitral | | | regurgitation is [...] TR Vmax: 2.74 m/s | | | Stock Analyst: MW Authenticated by: Robel Yusuf MD Report | | | Date/Time: 05-27-2018 13:59:57 | | + + + + + | Procedure Note | + + | Sonido Steele Results In - 05/27/2018 2:00 PM PDT Patient Name: Anders LOUISE of | | : 1995Accession: [id number] Physician: Robel Yusuf | | MD INDICATIONS [...] aortic stenosis.17. The mitral valve is normal.18. Glle-zh-hgptawah | | eccentric mitral regurgitation is present.19. [...] | | arch are normal.26. No mass mflafqfcms64. No clot visualizedFINDINGS--------ECG rhythm: | | Sinus [...] The mitral valve is normal. Mitral Valve: Bclv-pd-semrwvgn eccentric mitral | | regurgitation is present.Tricuspid [...] (A-L): 30.43 | | ml/m2LAAs A2C: 20.97 [id number] A-L A2C: 65.71 mlLALs A2C: 5.68 cmLAAs A4C: 19.94 | | sk3QVBTE A-L A4C: 60.20 mlLALs A4C: 5.60 cmTAPSE: 1.58 cmHR: 79.62 BPMAV maxPG: | | 6.06 mmHgAV meanP.71 mmHgAV Vmax: 1.23 m/Elizabeth Vmean: 0.92 m/Elizabeth VTI: 20.07 | | cmAVA Vmax: 1.74 cm2AVA (VTI): 1.93 [id number] Vmax: 0.00 cm2/m2AVAI (VTI): 0.00 | | [...] The mitral valve is | | normal.18. Hqtb-wt-wbyxvend eccentric mitral regurgitation is present.19. Severe | [...] and aortic arch are normal.26. No mass vhokieyvjs04. No clot visualized | |LVIDd: 4.99 cm [...] |TR Vmax: 2.74 m/s | | | |Stock Analyst: MW | |Authenticated by: Robel Yusuf MD [...] The mitral valve is normal. | |18. Llma-xz-uodrppmm eccentric mitral regurgitation is present. | |19. [...] | + + + + + | [facility] | [address] | [place] [address] | | + + + + + [...] + + + + | [facility] | [address] | [place] [address] | | + + + + + Brain natriuretic peptide (05/27/2018 4:25 AM) + + + + + | Component | Value | Ref Range | Performed At | + + + + + | BRAIN NATRIURETIC | 1,153.92 (H)Comment: | 0 - 100 pg/mL | [facility] | | PEPTIDE | Testing performed at | | | | | [facility];[address] [place] [address] | | | | | Blvd;[place] [address] | | | + + + + + + + | Specimen | + + | Blood | + + + + + + + | Performing | Address | City/State/Zipcode | Phone Number | | Organization | | | | + + + + + | [facility] | [address] | [place] [address] | | + + + + + Phosphorus (05/27/2018 4:25 AM) + + + + + | Component | Value | Ref Range | Performed At | + + + + + | PHOSPHORUS | 8.0 (H)Comment: Testing | 2.3 - 4.8 mg/dL | [facility] | | | performed at [facility], [address] | | LABORATORY | | | [place], | | | | | [place] [address] | | | + + + + + + + | Specimen | + + | Blood | + + + + + + + | Performing | Address | City/State/Zipcode | Phone Number | | Organization | | | | + + + + + | [facility] | [address] | [place] [address] | [phone] | | LABORATORY | Blvd[address] | | | + + + + + Magnesium (05/27/2018 4:25 AM) + + + + + | Component | Value | Ref Range | Performed At | + + + + + | MAGNESIUM | 2.7 (H)Comment: Testing | 1.7 - 2.4 mg/dL | [facility] | | | performed at [facility], [address] | | LABORATORY | | | [address] [place], | | | | | [place] [address] | | | + + + + + + + | Specimen | + + | Blood | + + + + + + + | Performing | Address | City/State/Zipcode | Phone Number | | Organization | | | | + + + + + | [facility] | [address] | [place] [address] | [phone] | | LABORATORY | Blvd. | | [...] | | | | | performed at [facility], [address] | | | | | [place] [place], | | | | | [place] [address] | | | + + + + + + + | Specimen | + + | Blood | + + + + + + + | Performing | Address | City/State/Zipcode | Phone Number | | Organization | | | | + + + + + | [facility] | [address] | [place] [address] | [phone] | | LABORATORY | Blvd. | | | + + + + + CBC w/auto diff (reflex to manual) (05/27/2018 4:25 AM) + + + + + | Component | Value | Ref Range | Performed At | + + + + + | WBC | 6.62 | 3.80 - 11.00 K/uL | [facility] | + + + + + | RBC | 3.48 (L) | 3.70 - 5.10 M/uL | [facility] | + + + + + | HGB | 12.5 | 11.3 - 15.5 g/dL | [facility] | + + + + + | HCT | 37.9 | 34.0 - 46.0 % | [facility] | + + + + + | MCV | 108.8 (H) | 80.0 - 100.0 fl | [facility] | + + + + + | MCH | 35.8 (H) | 27.0 - 34.0 pg | [facility] | + + + + + | MCHC | 32.9 | 32.0 - 35.5 g/dL | [facility] | + + + + + | RDW SD | 59.1 (H) | 37 - 53 fl | [facility] | + + + + + | PLT | 139 (L) | 150 - 400 K/uL | [facility] | + + + + + | MPV | 9.9 | fl | [facility] | + + + + + | DIFF TYPE | AUTOMATED | | [facility] | + + + + + | NEUTROPHILS | 67.20 | % | [facility] | + + + + + | LYMPHOCYTES | 19.48 | % | [facility] | + + + + + | MONOCYTES | 11.06 | % | [facility] | + [...] 0.10 | 0.00 - 0.50 K/uL | [facility] | + + + + + | BASOPHILS ABS | 0.05 | 0.00 - 0.10 K/uL | [facility] | + + + + + | MORPHOLOGY | 2+ | | [facility] | | | Comment: | | | | | MACRO | | | | | NORMAL PLT MORPH | | | | | | | | + + + + + | Platelet Estimate | DECREASEDComment: | | [facility] | | | Testing performed at | | | | | [facility];[address] [place] [address] | | | | | Blvd;[place] [address] | | | + + + + + + + | Specimen | + + | Blood | + + + + + + + | Performing | Address | City/State/Zipcode | Phone Number | | Organization | | | | + + + + + | [facility] | [address] | [facility] [address] | | + + + + + MRSA by PCR (05/26/2018 6:06 PM) + + + + + | Component | Value | Ref Range | Performed At | + + + + + | SOURCE | NARES(NOSE) | | [facility] | + + + + + | MRSA PCR | NEGATIVEComment: Testing | NEGATIVE | [facility] | | | performed at [facility];[address] | | | | | [address] [place] | | | | | [address] | | | + + + + + + + | Specimen | + + | Nasopharyngeal - | | Nares(Nose) | + + + + + + + | Performing | Address | City/State/Zipcode | Phone Number | | Organization | | | | + + + + + | [facility] | [address] | [place] [address] | | + + + + + [...] INTERP | Testing performed by | | [facility] | | | Molecular | | LABORATORY | | | MethodologyComment: | | | | | Testing performed at | | | | | L, [address] | | | | | [place] | | | | | [address] | | | + + + + + + + | Specimen | + + | Nasopharynx/Orophary | | nx | + + + + + + + | Performing | Address | City/State/Zipcode | Phone Number | | Organization | | | | + + + + + | [facility] | [address] | [place] [address] | [phone] | | [facility] | [address]. | | | + + + + + PROCALCITONIN (05/26/2018 5:27 PM) + + + + + | Component | Value | Ref Range | Performed At | + + + + + | PROCALCITONIN | 0.76 (H)Comment: | <0.5 ng/mL | [facility] | | | INTERPRETIVE | | [...] performed | | | | | at [facility];[address] | | | | | [place] [address] | | | + + + + + + + + + + | Performing | Address | City/State/Zipcode | Phone Number | | Organization | | | | + + + + + | [facility] | [address] | [place] [address] | | + + + + + [...] CHEST WITHOUT CONTRAST CLINICAL INFORMATION: Pneumonia. | [facility] | | COMPARISON: XR CHEST 2 VIEW [...] + + | [facility] | [address] | [place] [address] | | + + + + + [...] + + + + | [facility] | [address] | [place] [address] | | + + + + + [...] STAIN | STAIN PERFORMED ON | | [facility] | | | CYTOSPIN | | | + + + + + | GRAM STAIN | WBC'S SEEN | | [facility] | + + + + + | GRAM STAIN | NO EPITHELIAL CELLS SEEN | | [facility] | + + + + + | GRAM STAIN | NO ORGANISMS SEEN | | [facility] | + + + + + [...] + + + + + | [facility] | [address] | [place] [address] | [phone] | | LABORATORY | Blvd. | | | + + + + + | [facility] | [address] | [place] [address] | | + + + + + Pathologist consult (05/26/2018 2:12 PM) + + + + + | Component | Value | Ref Range | Performed At | + + + + + | Pathologist Consult | Comment: Review of | | [facility] | | | pleural fluid collected [...] performed | | | | | at [facility];[address] | | | | | Bl[address];[place] [address] | | | + + + + + + + + + + | Performing | Address | City/State/Zipcode | Phone Number | | Organization | | | | + + + + + | [facility] | [address] | [place] [address] | | + + + + + Total Protein, Body Fluid (05/26/2018 2:12 PM) + + + + + | Component | Value | Ref Range | Performed At | + + + + + | FLUID TOTAL PROTEIN | 4.2Comment: This is not | g/dL | [facility] | | | a tobacco wetter validated | | LABORATORY | | | sample type for this | | | | | method. No reference | | | | | ranges have been | | | | | established.Testing | | | | | performed at [facility], [address] | | | | | [address] [place], | | | | | [place] [address] | | | + + + + + | FLUID TP SOURCE | PLEURAL FLUIDComment: | | [facility] | | | Testing performed at | | | | | [facility];[address] | | | | | [place] [address] | | | + + + + + + + | Specimen | + + | Body Fluid - Lung, | | Right Lower Lobe | + + + + + + + | Performing | Address | City/State/Zipcode | Phone Number | | Organization | | | | + + + + + | [facility] | [address] | [place] [address] | | + + + + + | [facility] | [address] | [place] [address] | [phone] | | LABORATORY | [address] | | | + + + + + Albumin, Body Fluid (05/26/2018 2:12 PM) + + + + + | Component | Value | Ref Range | Performed At | + + + + + | FLUID ALBUMIN | 2.3Comment: This is not | g/dL | [facility] | | | a tobacco wetter validated | | LABORATORY | | | sample type for this | | | | | method. No reference | | | | | ranges have been | | | | | established.Testing | | | | | performed at [facility], [address] | | | | | [facility], | | | | | [place] [address] | | | + + + + + + + | Specimen | + + | Body Fluid - Lung, | | Right Lower Lobe | + + + + + + + | Performing | Address | City/State/Zipcode | Phone Number | | Organization | | | | + + + + + | [facility] | [address] | [place] [address] | [phone] | | LABORATORY | [address] | | | + + + + + pH, Body Fluid (05/26/2018 2:12 PM) + + + + + | Component | Value | Ref Range | Performed At | + + + + + | FLUID PH | 7.45Comment: Testing | | [facility] | | | performed at [facility];[address] | | | | | [address];[place] | | | | | [address] | | | + + + + + + + | Specimen | + + | Body Fluid - Lung, | | Right Lower Lobe | + + + + + + + | Performing | Address | City/State/Zipcode | Phone Number | | Organization | | | | + + + + + | [facility] | [address] | [place] [address] | | + + + + + [...] | + + + + + | [facility] | [address] | [place] [address] | [phone] | | LABORATORY | [address]vd[address] | | | + + + + + Cell count, Body Fluid (05/26/2018 2:12 PM) + + + + + | Component | Value | Ref Range | Performed At | + + + + + | FLUID TYPE | PLEURAL FLUID | | [facility] | + + + + + | COLOR | SAMMIE | | [facility] | + + + + + | APPEARANCE | CLOUDY | | [facility] | + + + + + | RBC'S | 3,000Comment: CORRECTED | /mm3 | [facility] | | | RESULTS CALLED TO | | | | | MARIA LUISA IN ED AT 1705 | | | | | BY LGJCORRECTED ON 05/26 | | | | | AT 1702: PREVIOUSLY | | | | | REPORTED <[id number] | | | + + + + + | TOTAL NUCLEATED | 253Comment: CORRECTED | /mm3 | [facility] | | CELLS | RESULTS CALLED [...] Mesothelial Cells | 5 | % | [facility] | + + + + + | CELLS COUNTED | 100Comment: Testing | | [facility] | | | performed at [facility];[address] | | | | | [address];[place] | | | | | [address] | | | + + + + + + + | Specimen | + + | Body Fluid - Lung, | | Right Lower Lobe | + + + + + + + | Performing | Address | City/State/Zipcode | Phone Number | | Organization | | | | + + + + + | [facility] | [address] | [place] [address] | | + + + + + PROCALCITONIN (05/26/2018 12:14 PM) + + + + + | Component | Value | Ref Range | Performed At | + + + + + | PROCALCITONIN | 0.56 (H)Comment: | <0.5 ng/mL | [facility] | | | INTERPRETIVE | | [...] performed | | | | | at [facility];[address] | | | | | [place] [address] | | | + + + + + + + + + + | Performing | Address | City/State/Zipcode | Phone Number | | Organization | | | | + + + + + | [facility] | [address] | [place] [address] | | + + + + + Brain natriuretic peptide (05/26/2018 12:14 PM) + + + + + | Component | Value | Ref Range | Performed At | + + + + + | BRAIN NATRIURETIC | 1,728.24 (H)Comment: | 0 - 100 pg/mL | [facility] | | PEPTIDE | Testing performed at | | | | | [facility];[address] [place] [address] | | | | | [facility];[place] [address] | | | + + + + + + + + + + | Performing | Address | City/State/Zipcode | Phone Number | | Organization | | | | + + + + + | [facility] | [address] | [place] [address] | | + + + + + Cardiac Panel (05/26/2018 12:14 PM) + + + + + | Component | Value | Ref Range | Performed At | + + + + + | WBC | 5.73 | 3.80 - 11.00 K/uL | [facility] | + + + + + | RBC | 3.32 (L) | 3.70 - 5.10 M/uL | [facility] | + + + + + | HGB | 12.1 | 11.3 - 15.5 g/dL | [facility] | + + + + + | HCT | 36.1 | 34.0 - 46.0 % | [facility] | + + + + + | MCV | 108.7 (H) | 80.0 - 100.0 fl | [facility] | + + + + + | MCH | 36.3 (H) | 27.0 - 34.0 pg | [facility] | + + + + + | MCHC | 33.4 | 32.0 - 35.5 g/dL | [facility] | + + + + + | RDW SD | 59.9 (H) | 37 - 53 fl | [facility] | + + + + + | PLT | 151 | 150 - 400 K/uL | [facility] | + + + + + | MPV | 10.1 | fl | [facility] | + + + + + | DIFF TYPE | AUTOMATED | | [facility] | + + + + + [...] 0.06 | 0.00 - 0.50 K/uL | [facility] | + + + + + | BASOPHILS ABS | 0.06 | 0.00 - 0.10 K/uL | [facility] | + + [...] 4.6 | 3.5 - 4.9 mmol/L | [facility] | + + [...] 9.6 | 8.5 - 10.5 mg/dL | [facility] | + + + + + | TOTAL PROTEIN | 7.2 | 6.3 - 8.2 g/dL | [facility] | + + + + + | Albumin | 4.3 | 3.6 - 5.0 g/dL | [facility] | + + + + + | GLOBULIN | 2.9 | 1.3 - 4.9 g/dL | [facility] | + + + + + | A/G | 1.5 | 1.0 - 2.4 | [facility] | + + + + + | TBIL | 1.1 | 0.1 - 1.5 mg/dL | [facility] | + + + + + | ALK PHOS | 120 (H) | 35 - 115 U/L | [facility] | + + + + + | AST | 82 (H) | 10 - 45 U/L | [facility] | + + + + + | ALT | 64 | 10 - 65 U/L | [facility] | + + + + + | EGFR | 6 (L)Comment: GFR <60: | >60 mL/min/1.73m2 | [facility] | | | CHRONIC KIDNEY DISEASE, [...] the | | | | | MDRD [facility] traceable | | | | | equation. | | | + + + + + | CPK | 291 (H) | 30 - 240 U/L | [facility] | + + + + + | INR | 1.6Comment: REFERENCE | | [facility] | | | RANGE:0.9 - | [...] 29 | 23 - 32 seconds | [facility] | + + + + + | MMB | 7.8 (H) | 0.5 - 3.6 ng/mL | [facility] | + + + + + | CK-MB Index | 2.7Comment: CK INDEX | | [facility] | | | INTERPRETATION: | | [...] | | | | | performed at [facility];[address] | | | | | [address];[place] | | | | | [address] | | | + + + + + + + + + + | Performing | Address | City/State/Zipcode | Phone Number | | Organization | | | | + + + + + | [facility] | [address] | [place] [address] | | + + + + + [...] space: 4th Puncture | | | method: Yvxc-bsu-nyaieo catheter Ultrasound guidance: yes | | | [...] perforation, infection and | | | pain [place] protocol: Imaging studies available: yes | | [...] Performed At | + + + | [id number] Criteria Met 2 in 2 | ED [...] Count (12 mo.) Facility Visits Low Acuity [facility] | | | [facility] 1 0 [facility] 5 0 Total 6 0 | | | Note: Visits indicate total known visits. Medicaid Low Acuity Dx | | | are the number of primary diagnoses on the Medicaid's Low Acuity dx | | | list. Recent Emergency Department Visit Summary Date Facility | | | [facility] State Type Diagnoses or Chief Complaint May 26, 2018 [facility] | | | [facility] Reji Nagy [place] Emergency Chest pain, unspecified | | | [facility] [place] Emergency Chief | | | Complaint: FLU SYMPTOMS [facility] [place] [place] | | | Emergency Chief Complaint: SOB/COUGH May 10, 2018 [facility] | | | Keven H. [place] Emergency Epistaxis Other long | | [...] | | disease Feb 14, 2018 [facility] [place] Emergency | | | Functional dyspepsia Other ascites Epigastric pain | | | Allergy status to narcotic agent status Radiographic dye | | | allergy status Nicotine dependence, unspecified, uncomplicated | | | Other intermediate (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 Sep 16, 2017 [facility] | | | [place] Emergency Chronic kidney disease, | | | unspecified Dependence on renal dialysis Pain, | | | unspecified Allergy status to narcotic agent status | | | Nicotine dependence, unspecified, uncomplicated Other terminal make up operator | | | (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 Elevated [...] record at this time. | | | [employer] Portal This patient has registered at the [facility] | | [facility] Emergency Department For more information visit: | | | [email or web address] | | | [email or web address] PLEASE NOTE: [...] | | completeness of information provided. 2019 [employer] | | | [employer]. - [email or web address] Medical | | + + + + + | Procedure Note | + + | Interface, Lab - 05/26/2018 12:00 PM PDT Formatting of this note may be different | | from the original.[id number] [id number] Met 2 in 2Security and | | SafetyNo recent Security Events currently on fileED Care GuidelinesThere are currently | | no ED Care Guidelines for this patient. Please check your facility's medical records | | system.Prescription Drug Report (12 Mo.)PDMP query found no report.E.D. Visit Count (12 | | mo.)Facility Visits Low Acuity [facility] 1 0 [facility] | | Hospital 5 0 Total 6 0 Note: Visits indicate total known visits. Medicaid Low Acuity Dx | | are the number of primary diagnoses on the Medicaid's Low Acuity dx list. Recent | | Emergency Department Visit SummaryDate Facility City State Type Diagnoses or Chief | | [facility] [place] [facility] Chest pain, | | unspecified May 26, 2018 [facility] Emergency Chief Complaint: FLU | | SYMPTOMS May 25, 2018 [facility] [place] Emergency Chief Complaint: | | SOB/COUGH May 10, 2018 [facility] [place] [facility] [place] Emergency Epistaxis Other long [...] end stage renal disease Feb 14, 2018 [facility] [place] [facility] | | [place] Emergency Functional dyspepsia Other ascites Epigastric pain | | Allergy status to narcotic agent status Radiographic dye allergy status Nicotine | | dependence, unspecified, uncomplicated Other terminal make up operator (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 Sep | | 2017 [facility] [place] [facility] [place] Emergency Chronic kidney disease, unspecified | | Dependence on renal dialysis Pain, unspecified Allergy status to narcotic agent | | status Nicotine dependence, unspecified, uncomplicated Other terminal make up operator (current) | | 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 Elevated blood-pressure [...] record at this time. Collective | | PortalThis patient has registered at the [facility] | | Department For more information visit: | | [email or web address] andnbsp | | PLEASE NOTE: 1. Any [...] or completeness of information | | provided.2019 [employer] - [email or web address] | | Hypertensive heart and chronic kidney disease without heart failure, with stage 5 chroni c kidney disease, or end stage renal disease | | | |Feb 14, 2018 [facility] [place] [place] [facility] | | Functional dyspepsia | | Other ascites | | Epigastric pain | | Allergy status to narcotic agent status | | Radiographic dye allergy status | | Nicotine dependence, unspecified, uncomplicated | | Other intermediate (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 | | | |Sep 16, 2017 [facility] [place] [place] [facility] | | Chronic kidney disease, unspecified | | Dependence on renal dialysis | | Pain, unspecified | | Allergy status to narcotic agent status | | Nicotine dependence, unspecified, uncomplicated | | Other terminal make up operator (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 | | Elevated blood-pressure [...] | |This patient has registered at the [facility] Emergency Department | |For more information visit: [email or web address] | |andnbsp PLEASE NOTE: | | 1. [...] of information provided. | | | |2019 [employer] - [email or web address] | + + + +---------+ + + [...] procedure without a radiologist report and | MOLLY | | is used for image storage [...] + + + + | [facility] | [address] | [place] [address] | | + + + + + [...] breath | + + | ESRD on hemodialysis (HCC) | + + | End stage renal disease | + + | Non-compliance | + + | Personal history of noncompliance with medical treatment, presenting hazards to health | + + | Chronic systolic heart failure (HCC) | + + | Chronic systolic heart failure | + + | Moderate to severe pulmonary hypertension (HCC) | + + | Other chronic pulmonary heart diseases | + + | Non-rheumatic tricuspid valve insufficiency | + + | Tricuspid valve disorders, specified as nonrheumatic | + + | Non-rheumatic mitral regurgitation | + + | Chronic 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) | + + | Chronic combined systolic and diastolic heart failure | + + | Transaminitis | + [...] 10 mLs | | | | 0.5% -[id number] injection 10 mL | Other | 9 [...] PDT | | | | | Dialysis, [facility] 05/27/18 at 1700, | | | | [...] PDT | | | | | Dialysis, [facility] 05/30/18 at 0730, | | | [...] PDT | | | | | Dialysis, [facility] 05/27/18 at 1700, | | | | [...] PDT | | | | | Dialysis, [facility] 05/28/18 at 1230, | [...] PDT | | | | | Dialysis, 06/01/18 at 0800, | | | | [...] | | Times Daily, First dose on Tue | | PDT | | | | | 05/29/18 at 1400 | | | | | | + +-------+ +-------+---+---+ +---+---+ | | | +---+---+ + +-------+ +-------+---+---+ | isosorbide dinitrate (ISORDIL) | Given | | 40 mg | | | | tablet 40 mg 40 mg, Oral, 3 | | 9 13:55 | | | | | Times Daily, First dose on Tue | | PDT | | | | [...] | | Oral, Daily, First dose on Mon | | | 05/29/18 at 1030 | [...] | | | | Starting 05/27/18 at 2005, | | | | | | | [...]
--- OUTSIDE RECORDS SUMMARY | ~2018-08-13 | XMS | Encounter Summary ---
Demographics + + + | Address | [address] | | | [place] [address] | + + + | Home Phone [...] | Author | [facility] | + + + | Organization | [facility] | + + + | Address | Unknown | + + + | Phone | Unavailable | + + + Support + + + + + | Name | Relationship | Address | Phone | + + + + + | Cory Wedlon | ECON | [address] | | | | | [place] [address] | | + + + + + | Thania Mallory | ECON | [address] | | | | | [place] [address] | | + + + + + | Deidra Weldon | ECON | [address] | | | | | [place] | | | | | [address] | | + + + + + Care Team Providers + +------+ + | Care Lime Hide Inspector Name | Role | Phone | [...] | Nephrology | | Jonathan Gallagher, | Sandra Dc [address] | | | | | | MD [address] | [address] | | | | | | Keven | [place] | | | | | | [facility] | Road | | | | | | [address] | Mailcode: | | | | | | [place] | [address] | | | | | | [place] | [place] | | | | | | [place] | [place], [place] | | | | | | [address] | [address] | | | | | | Phone: | Phone: | | | | | | [phone] | [phone] | | | | | | Fax: | | | | | | | [phone] | | +--------+--------+ + + + + Encounter Details +--------+---------+ + + + | Date | Type | Department | Care Team | Description | +--------+---------+ + + + | 05/11/ | Office | Specialty Clinics | Sudhakar Joy | HSP | | 2016 | Visit | at [facility] [address] | DMD [address] | ([facility] | | | | [facility] | [facility] [address] | purpura) nephritis | | | | Mailcode: [facility] | [place], [place] | (Primary Dx); Anemia | | | | [place] | [address] | of chronic kidney | | | | [place], [place] | [phone] | failure, stage 5 | | | | [address] | | ([facility]) | | | | [phone] | | | +--------+---------+ + + + [...] 11:19 AM PSTKeep working on the lo wer phosphorus and financial plan See me in 4 months. Consider home dialysis. Sudhakar Joy MD documented in this encounter Progress Notes Sudhakar Joy MD - 05/12/2015 8:18 PM PST Pediatric Nephrology Dara was seen on 05/12/2015 for a visit concerning renal transplant option. The problem st for her is: Patient Active Problem List [...] [address] Mail code [facility] [place], [place] [address] Estrella Brennan MA - 05/12/2015 10:48 AM PSTPt reports she finished the course of azithromycin today, 3/8/ 16. documented in th is encounter Plan of Treatment +--------+ + + + + | Date | Type | Specialty | Care Team | Description | +--------+ + + + + | 05/04/ | Hospital | Adult Acute Care | El Starr MD | | | 2022 | Encounter | | [address] | | | | | | [place], [place] | | | | | | [address] | | | | | | [phone] | | | | | | | [...]
--- OUTSIDE RECORDS SUMMARY | ~2018-08-13 | XMS | Encounter Summary ---
Demographics + + + | Address | [address] | | | [place] [address] | + + + | Home Phone [...] Author + + + | Author | [facility] | + + + | Organization | [facility] | + + + | Address | Unknown | + + + | Phone | Unavailable | + + + Support + + + + + | Name | Relationship | Address | Phone | + + + + + | Cory Weldon | ECON | [address] | | | | | [place] [address] | | + + + + + | Thania Mallory | ECON | [address] | | | | | [place] [address] | | + + + + + | Deidra Weldon | ECON | [address] | | | | | [place] | | | | | [address] | | + + + + + Care Team Providers + +------+ + | Care Crook Operator Name | Role | Phone | [...] Griffin | | | | | | [employer] [facility] | | | | | | [place], [place] | | | | | | [address] | | | +--------+ + + + [...] Denise | | | | | | [place], [place] | | | | | | [address] | | | | | | [phone] | | | | | | | [...] [facility] - | [address], | [place] [address] | | | IMMUNOGENETICS/TRANS | [address] | | | | [facility] | | | | + + + + + documented in this encounter Visit Diagnoses Not on filedocumented in this encounter"
--- OUTSIDE RECORDS SUMMARY | ~2018-08-13 | XMS | Encounter Summary ---
Demographics + + + | Address | [address] | | | [place] [address] | + + + | Home Phone [...] Author + + + | Author | [facility] | + + + | Organization | [facility] | + + + | Address | Unknown | + + + | Phone | Unavailable | + + + Support + + + + + | Name | Relationship | Address | Phone | + + + + + | Cory Weldon | ECON | [address] | | | | | [place] [address] | | + + + + + | Thania Mallory | ECON | [address] | | | | | [place] [address] | | + + + + + | Deidra Weldon | ECON | [address] | | | | | [place] | | | | | [address] | | + + + + + Care Team Providers + +------+ + | Care Family Psychologist Name | Role | Phone | [...] Update ([place] [address] | | | | [address] [place] | [facility] | check-in on pt's | | | | Road [place], [place] | [place], [place] | support plan & | | | | [address] | [address] | social changes) | | | | [phone] | | | +--------+ + + + [...] Denise | | | | | | [place], [place] | | | | | | [address] | | | | | | [phone] | | | | | | | | +--------+ + + + + documented as of this encounter Visit Diagnoses Not on filedocumented in this encounter"
--- OUTSIDE RECORDS SUMMARY | ~2018-08-13 | XMS | Encounter Summary ---
Demographics + + + | Address | [address] | | | [place] [address] | + + + | Home Phone [...] Author + + + | Author | [facility] | + + + | Organization | [facility] | + + + | Address | Unknown | + + + | Phone | Unavailable | + + + Support + + + + + | Name | Relationship | Address | Phone | + + + + + | Cory Weldon | ECON | [address] | | | | | [place] [address] | | + + + + + | Thania Mallory | ECON | [address] | | | | | [place] [address] | | + + + + + | Deidra Weldon | ECON | [address] | | | | | [place] | | | | | [address] | | + + + + + Care Team Providers + +------+ + | Care Color Strainer Name | Role | Phone | + [...] Shun | VERIFICATION) | | | | [facility] | [facility] | | | | | Road [place], [place] | [place], [place] | | | | | [address] | [address] | | | | | [phone] | | | +--------+ + + + [...] Denise | | | | | | [place], [place] | | | | | | [address] | | | | | | [phone] | | | | | | | | +--------+ + + + + documented as of this encounter Visit Diagnoses Not on filedocumented in this encounter"
--- OUTSIDE RECORDS SUMMARY | ~2018-08-13 | XMS | Encounter Summary ---
Demographics + + + | Address | [address] | | | [place] [address] | + + + | Home Phone [...] | | | | | [place] [address] | | + + + + + | Thania Mallory | ECON | [address] | | | | | [place] [address] | | + + + + + | Deidra Weldon | ECON | [address] | | | | | [place] | | | | | [address] | | + + + + + Care Team Providers + +------+ + | Care Department Director Name | Role | Phone | [...] | | | | | [facility] | [facility] | | | | | Road [place], [place] | [place], [place] | | | | | [address] | [address] | | | | | [phone] | | | +--------+ + + + [...] Denise | | | | | | [place] | | | | | | [address] | | | | | | [phone] | | | | | | | | +--------+ + + + + documented as of this encounter Visit Diagnoses Not on filedocumented in this encounter"
--- OUTSIDE RECORDS SUMMARY | ~2018-08-13 | XMS | Encounter Summary ---
Demographics + + + | Address | [address] | | | [place] [address] | + + + | Home Phone [...] | | | | | [place] [address] | | + + + + + | Thania Mallory | ECON | [address] | | | | | [place] [address] | | + + + + + | Deidra Weldon | ECON | [address] | | | | | [place] | | | | | [address] | | + + + + + Care Team Providers + +------+ + | Care Restaurant Service Manager Name | Role | Phone | [...] | | | | | purpura | MD [address] | | | | | ([facility]) | An[address] [place] | Elias [place] | | | | | Procedures | [address] | Road | | | | | TRANSTHORACI | [place], [place] | Mailcode: | | | | | C | [address] | [facility] | | | | | ECHOCARDIOGR | Phone: | [place] | | | | | IMANI, PEDS | [phone] | [place], [place] | | | | | | Fax: | [address] | | | | | | [phone] | Phone: | | | | | | | [phone] | | | | | | | Fax: | | | | | | | [phone] | +--------+--------+ + + + + Reason [...] | RN [address] | Update | | | | [facility] | [facility] | | | | | Road [place], [place] | [place], [place] | | | | | [address] | [address] | | | | | [phone] | | | +--------+ + + + [...] Denise | | | | | | [place], [place] | | | | | | [address] | | | | | | [phone] | | | | | | | | +--------+ + + + + + +------+--------+ + + | Name | Type | Priori | Associated Diagnoses | Order Schedule | | | | ty | | | + +------+--------+ + + | LIT HLA-A WILEY RES-EVA | Lab | Routin | Allergic purpura- [...] view image for the detailed interpretation from [employer] results. | CARDIOLOGY | + + + + + | Procedure Note | + + | Interface, Cardiology Results - 12/21/2012 9:38 AM PDT Please click on view image | | for the detailed interpretation from [facility] results. | + + + + + + + | Performing | Address | City/State/Zipcode | Phone Number | | Organization | | | | + + + + + | [facility] | [address] | [place], [place] | | | CARDIOLOGY | [address] | [address] | | + + + + + LIT SRUTHI-B WILEY ZHANG (12/20/2012 10:02 AM PDT) + + | Specimen | + + | Blood - Blood | + + + + + + + | Performing | Address | City/State/Zipcode | Phone Number | | Organization | | | | + + + + + | [facility] - | [address] | [place] [address] | | | IMMUNOGENETICS/TRANS | [address] [...] [facility] - | [address] | [place] [address] | | | IMMUNOGENETICS/TRANS | [address] [...] - | [address] | [place], [place] | | | IMMUNOGENETICS/TRANS | [address] [...] - | [address] | [place], [place] | | | IMMUNOGENETICS/TRANS | Suite [...] + + | [facility] - | [address] | [place] [address] | | | IMMUNOGENETICS/TRANS | [address] [...] [facility] - | [address] | [place] [address] | | | IMMUNOGENETICS/TRANS | [address] [...] | | | | | JAQUI 12/20/2012 10:03 | | | | | [...] REG UNIV | | | | [place] [facility] | | PTH - INTFC | | | | [address] | | | | | | [phone].[email or web address]. | | | | | | Faisal [...] [facility] | [address] | [place], [place] | | | UNIV PTH - INTFC | | [address] | | + + + + + [...] | + + + + + | [facility] | [address] | [place] [address] | | | SERVICES, HOMERO | LONG [...] | + + + + + | [facility] | [address] | [place] [address] | | | SERVICES, CORE | LONG [...] - | | | | | | [place] | | + + + + + + + + | Specimen | + + | Blood - Blood | + + + + + + + | Performing | Address | City/State/Zipcode | Phone Number | | Organization | | | | + + + + + | [facility] | [address] | [place] [address] | | | [place] | | | | + + + [...] [facility] | [address] | [place] [address] | | | SERVICES, CORE | PARK [...] LABORATORY | [address] | [place] [address] | | | SERVICES, CORE | PARK [...] [facility] | [address] | [place] [address] | | | RIKY, HOMERO | [address] | | | + + + + + RPR SERUM (12/20/2012 8:39 AM PDT) + + + + + + | Component | Value | Ref Range | Performed | Pathologist | | | | | At | Signature | + + + + + + | RPR SRM | Non-Reactive | Non-Reactive | [facility] | | | QUAL | | | [facility] - | | | | | | [place] | | + + + + + + + + | Specimen | + + | Blood - Blood | + + + + + + + | Performing | Address | City/State/Zipcode | Phone Number | | Organization | | | | + + + + + | [facility] - | [address] | [place] [address] | | | [place] | | | [...] | | | at: | | | http://www.cdc.gov/nchstp/tb/pubs/tbfactssheets/232382.htm | | | Test performed by: [facility] | | | [facility] [address] [place] [address] | | | | | + + [...] [facility] | [address] | [place] [address] | | | SERVICES, SPECIAL | PARK [...] INTERPRETATION: Prothrombin mutation analysis shows that | [facility] | | there is no mutation in either copy of the prothrombin gene at | DIAGNOSTIC | | nucleotide 49117. Please note that this assay only detects the | LABORATORIES | | L38924H point mutation and therefore a normal result [...] has been analyzed for the presence of [id number] | | | mutation in the prothrombin [...] | above. Heterozygotes for the common prothrombin S89136X mutation | | | constitute approximately 2% of the normal white population (1,2). | | | References: 1.) Poort et al. Blood 88, 3924-2553 (1996). 2.) Ricardo | | | et al. Circulation 99, 999-1004 (1998). 3.) Al Montalvo, and | | | Chase. Amer J Clin Path 155, 439-47 (2000). This test was | | | developed and its performance characteristics determined by the [facility] | | | [facility]. It has | | | not been cleared or approved by the Food and Drug | | | Administration. FDA approval is not required for clinical use of | | | this test, and therefore validation was done as required under the | | | requirements of the Clinical Laboratory Improvement Act of | | | 1988. The [facility] | | | Center is a fully licensed and/or accredited clinical laboratory under | | | CLIA, [facility], and the State [facility]. Please note that our lab now | [...] + | Performing | Address | City/State/[facility] | Phone Number | | Organization | | | | + + + + + | [facility] | [address] | [place] [address] | | | DIAGNOSTIC | [address] [...] | + + + + + | [facility] | [address] | [place] [address] | | | SERVICES, CORE | PARK [...] | + + + + + | [facility] | [address] | [place] [address] | | | SERVICES, CORE | LONG [...] effective 2012 for LD Total performed | [facility] | | in Core Lab only. | LABORATORY | | | SERVICES, CORE | + + + + + + + + | Performing | Address | City/State/Zipcode | Phone Number | | Organization | | | | + + + + + | [facility] | [address] | [place] [address] | | | SERVICES, HOMERO | LONG [...] valves (2.5 - 3.5) INR | RIKY, CORE | + + + + + + + + | Performing | Address | City/State/Zipcode | Phone Number | | Organization | | | | + + + + + | [facility] | [address] | [place] [address] | | | SERVICES, HOMERO | LONG [...] | | | | | | [place], [place] [address] | | | | | | [phone].aruplab. | | | | | | Faisal [...] [facility] | [address] | [place], [place] | | | UNIV PTH - INTFC | | [address] | | + + + + + [...] | + + + + + | [facility] | [address] | [place] [address] | | | SERVICES, SPECIAL | PARK [...] + + + + | [facility] | [address] | [place] [address] | | | DIAGNOSTIC | [address] [...] + | [facility] - | [address] | [place] [address] | | | [place] | | | [...] + | [facility] - | [address] | [place] [address] | | | [place] | | | [...] + | [facility] - | [address] | [place] [address] | | | [place] | | | [...] + | [facility] - | [address] | [place] [address] | | | [place] | | | | + + + [...] less......Not | | | | | | Kvbqeexk53.0-21.9 | | | | | | U/mL.........Indetermina [...] available | | | | | | atwww.[employer]/eb | | | | | | vdx.Performed by [facility] | | | | | | Tania,Reid Pradhan | | | | | | [place] [address] | | | | | | [phone].[employer]ab. | | | | | | Faisal [...] [facility] | [address] | [place], [place] | | | UNIV PTH - INTFC | | [address] | | + + + + + [...] + | [facility] | [address] | [place] [address] | | | [facility] | | | | + + [...] | + + + + + | [facility] | [address] | [place] [address] | | | SERVICES, HOMERO | PARK [...] by | | | | | | [employer],[address] | | | | | | [place], [facility] | | | | | | [address] | | | | | | [phone].[employer]. 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
--- OUTSIDE RECORDS SUMMARY | ~2018-08-13 | XMS | Encounter Summary ---
Demographics + + + | Address | [address] | | | [place] [address] | + + + | Home Phone [...] Author + + + | Author | [facility] | + + + | Organization | [facility] | + + + | Address | Unknown | + + + | Phone | Unavailable | + + + Support + + + + + | Name | Relationship | Address | Phone | + + + + + | Cory Weldon | ECON | [address] | | | | | [place] [address] | | + + + + + | Thania Mallory | ECON | [address] | | | | | [place] [address] | | + + + + + | Deidra Weldon | ECON | [address] | | | | | [place] | | | | | [address] | | + + + + + Care Team Providers + +------+ + | Care Nursing Clinical Director Name | Role | Phone | [...] Griffin | | | | | | [facility] | | | | | | [place], [place] | | | | | | [address] | | | +--------+ + + + [...] Denise | | | | | | [place], [place] | | | | | | [address] | | | | | | [phone] | | | | | | | [...] + + | [facility] - | [address] | [place] [address] | | | IMMUNOGENETICS/TRANS | [address] | | | | PLANT LABORATORY | | | | + + + + + documented in this encounter Visit Diagnoses + + | Diagnosis | + + | End stage renal disease (HCC) End stage renal disease | + + documented in this encounter"
--- OUTSIDE RECORDS SUMMARY | ~2018-08-13 | XMS | Encounter Summary ---
Demographics + + + | Address | [address] | | | [place] [address] | + + + | Home Phone [...] Author + + + | Author | [facility] | + + + | Organization | [facility] | + + + | Address | Unknown | + + + | Phone | Unavailable | + + + Support + + + + + | Name | Relationship | Address | Phone | + + + + + | Cory Weldon | ECON | [address] | | | | | [place] [address] | | + + + + + | Thania Mallory | ECON | [address] | | | | | [place] [address] | | + + + + + | Deidra Weldon | ECON | [address] | | | | | [place] | | | | | [address] | | + + + + + Care Team Providers + +------+ + | Care Flattening Machine Operator Name | Role | Phone [...] Nephrology at | MD Emanuel [address] | | | | | [place] | [facility] | | | | | [facility] | [place], [place] | | | | | [address] | [address] | | | | | [facility] | [phone] | | | | | Mailcode: DCH7 | | | | | | [place] | | | | | | [place], [place] | | | | | | [address] | | | | | | [phone] | | | +--------+ + + + [...] Denise | | | | | | [place], [place] | | | | | | [address] | | | | | | [phone] | | | | | | | [...]
--- OUTSIDE RECORDS SUMMARY | ~2018-08-13 | XMS | Encounter Summary ---
Demographics + + + | Address | [address] | | | [place] [address] | + + + | Home Phone [...] + + + | Author | [facility] | + + + | Organization | [facility] | + + + | Address | Unknown | + + + | Phone | Unavailable | + + + Support + + + + + | Name | Relationship | Address | Phone | + + + + + | Cory Weldon | ECON | [address] | | | | | [place] [address] | | + + + + + | Thania Mallory | ECON | [address] | | | | | [place] [address] | | + + + + + | Deidra Weldon | ECON | [address] | | | | | [place] | | | | | [address] | | + + + + + Care Team Providers + +------+ + | Care Eyeglass Fitter Name | Role | Phone | [...] + + | 11/22/ | Documentati | Transplant | Kelsi Martinez, | Transplant Form | | 2013 | on | Coordinators [address] | RN [address] | Update | | | | [facility] | [facility] | | | | | Road [place], [place] | [place], [place] | | | | | [address] | [address] | | | | | [phone] | | | +--------+ + + + [...] [facility] | | | | | | [address] | | | | | | [phone] | | | | | | | | +--------+ + + + + documented as of this encounter Visit Diagnoses Not on filedocumented in this encounter"
--- OUTSIDE RECORDS SUMMARY | ~2018-08-13 | XMS | Encounter Summary ---
Demographics + + + | Address | [address] | | | [place] [address] | + + + | Home Phone [...] + + + | Author | [facility] | + + + | Organization | [facility] | + + + | Address | Unknown | + + + | Phone | Unavailable | + + + Support + + + + + | Name | Relationship | Address | Phone | + + + + + | Cory Weldon | ECON | [address] | | | | | [place] [address] | | + + + + + | Thania Mallory | ECON | [address] | | | | | [place] [address] | | + + + + + | Deidra Weldon | ECON | [address] | | | | | [place] | | | | | [address] | | + + + + + Care Team Providers + +------+ + | Care Filler Shaker Name | Role | Phone | [...] | | Jonathan Gallagher, | [address] | | | | | | [address] | [address] | | | | | | [place]even | Elias Milaca | | | | | | [facility] | [facility] | | | | | | [address] | Mailcode: | | | | | | [address] | [address] | | | | | | [place] | [place] | | | | | | [place] | [place], [place] | | | | | | [address] | [address] | | | | | | Phone: | Phone: | | | | | | [phone] | [phone] | | | | | | Fax: | | | | | | | [phone] | | +--------+--------+ + + + + Encounter Details +--------+---------+ + + + | Date | Type | Department | Care Team | Description | +--------+---------+ + + + | 01/20/ | Office | Specialty Clinics | Sudhakar Joy | [facility] | | 2015 | Visit | at [facility] [address] | MD Emanuel [address] | (Henoch-Schonlein | | | | [facility] | [address] | purpura) nephritis | | | | Mailcode: DC7 | [place], [place] | (Primary Dx); | | | | [place] | [address] | Allergic purpura- | | | | [place], [place] | [phone] | MEDICARE 2728; | | | | [address] | | Anemia of chronic | | | | [phone] | | kidney failure, | | | [...] soon. See me in 4 months. Sudhakar Jyo MD documented in this encounter Progress Notes [...] [address] Mail code [facility] [place], [place] [address] documented in this encounter Plan of Treatment +--------+ + + + + | Date | Type | Specialty | Care Team | Description | +--------+ + + + + | 05/04/ | Hospital | Adult Acute Care | El Starr MD | | | 2022 | Encounter | | [address] | | | | | | [place], [place] | | | | | | [address] | | | | | | [phone] | | | | | | | [...]
--- OUTSIDE RECORDS SUMMARY | ~2018-08-13 | XMS | Encounter Summary ---
Demographics + + + | Address | [address] | | | [place] [address] | + + + | Home Phone [...] | | | | | [place] [address] | | + + + + + | Thania Mallory | ECON | [address] | | | | | [place] [address] | | + + + + + | Deidra Weldon | ECON | [address] | | | | | [place] | | | | | [address] | | + + + + + Care Team Providers + +------+ + | Care Hat Brim Curler Name | Role | Phone | + [...] + + | 05/02/ | Telephone | Transplant | Mariza Hsu | Social work | | 2014 | | Coordinators [address] | [address] | consultation ([place] SW | | | | [address] [facility] | Elias Caro Chan | attempt(s) to | | | | Road [place], [place] | [place], [place] | contact pt re move | | | | [address] | [address] | and new PAF as | | | | [phone] | | listed) | +--------+ + + [...] Denise | | | | | | [place], [place] | | | | | | [address] | | | | | | [phone] | | | | | | | | +--------+ + + + + documented as of this encounter Visit Diagnoses Not on filedocumented in this encounter"
--- OUTSIDE RECORDS SUMMARY | ~2018-08-13 | XMS | Encounter Summary ---
Demographics + + + | Address | [address] | | | [place] [address] | + + + | Home Phone [...] + + + | Author | [facility] [employer] | + + + | Organization | [facility] | + + + [...] Team Providers + +------+ + | Care Fine Arts Teacher Name | Role | Phone | + +------+ + | Jonathan Alonso MD | PCP | | + +------+ + Reason for Visit +--------+ + | Reason | Comments | +--------+ + | Other | July 2018-Fina Provider Dialysis Rounding Note | +--------+ + Encounter Details +--------+ + + + + | Date | Type | Department | Care Team | Description | +--------+ + + + + | 08/10/ | Documentati | [facility] | René Anguiano MD | Other (July | | 2018 | on Only | [address] | [address] | 2019-Davita Provider | | | | [address] | [address] [place], [place] | Dialysis Rounding | | | | [place] [address] | [address] | Note) | | | | [phone] | | | +--------+ + + + [...] | | | | | [place] [address] | | | | | | [phone] | | | | | | | | +--------+---------+ + + + as of this encounter Visit Diagnoses Not on filein this encounter"
--- OUTSIDE RECORDS SUMMARY | ~2018-08-13 | XMS | Encounter Summary ---
Demographics + + + | Address | [address] | | | [place] [address] | + + + | Home Phone [...] | | | | | [place] [address] | | + + + + + | Thania Mallory | ECON | [address] | | | | | [place] [address] | | + + + + + | Deidra Weldon | ECON | [address] | | | | | [place] | | | | | [address] | | + + + + + Care Team Providers + +------+ + | Care Physician Coding Specialist Name | Role | Phone | [...] | ) | | | | [facility] | [facility] | | | | | Road [place], [place] | [place], [place] | | | | | [address] | [address] | | | | | [phone] | | | +--------+ + + + [...] [place] | | | | | | [address] | | | | | | [phone] | | | | | | | | +--------+ + + + + documented as of this encounter Visit Diagnoses Not on filedocumented in this encounter"
--- OUTSIDE RECORDS SUMMARY | ~2018-08-13 | XMS | Encounter Summary ---
Demographics + + + | Address | [address] | | | [place] [address] | + + + | Home Phone [...] + + + | Author | [facility] [employer] | + + + | Organization | [facility] | + + + | [...] + + | 06/14/ | Office | [place] | Carolina Mahmood DO | Systolic heart | | 2019 | Visit | Cardiology [place] | [address] | failure, unspecified | | | | [address] | [place], [place] | HF chronicity (HCC) | | | | [address] | [id number] | (Primary Dx); | | | | [place] [address] | | Severe tricuspid | | | | [phone] | | regurgitation; | | | | | | Pulmonary HTN (HCC); | | | | | | ESRD (end stage | | | | | | renal disease) ([facility]) | +--------+---------+ + + + Social History [...] may be different from th e original. [facility] [...] disease) (HCC) HSP (Henoch-Schonlein purpura) nephritis (HCC) Hypertension Past Surgical History Procedure Laterality Date ABDOMINAL SURGERY AV FISTULA PLACEMENT AV FISTULA PLACEMENT Left 04/08/2014 Procedure: AV FISTULA; Surgeon: Rik Simon MD; Location: [facility] OR; Service: Vascula r; Laterality: Left; cephalic AV FISTULA REPAIR Left 03/07/2014 Procedure: AV FISTULA - GRAFT REPAIR/REVISION; Surgeon: Rik Simon MD; Location: [facility] IN OR; Service: Vascular; Laterality: Left; DECLOT GRAFT Left 03/07/2014 Procedure: GRAFT - DECLOT; Surgeon: Rik Simon MD; Location: [facility] OR; Service: Vas cular; Laterality: Left; DIALYSIS FISTULA CREATION N/A 04/08/2014 Procedure: DIALYSIS CATHETER - INSERTION; Surgeon: Rik Simon MD; Location: [facility] OR ; Service: Vascular; Laterality: N/A; tunneled catheter LAPAROSCOPIC PERITONEAL DIALYSIS CATHETER INSERTION x2 LAPAROSCOPIC PERITONEAL DIALYSIS CATHETER INSERTION Right 07/2013 current dialysis access MWF dialysis RENAL BIOPSY SUPERFICIALIZATION OF AV FISTULA Left 06/24/2014 Procedure: AV FISTULA - SUPERFICIALIZATION; Surgeon: Rik Simon MD; Location: [facility] OR; Service: Vascular; Laterality: Left; MEDICATIONS Home [...] 17. The mitral valve is normal. 18. Trzh-tc-mhjgddup eccentric mitral regurgitation is present. 19. Severe [...] on HD. She recently presented to the [facility] after missing several dialysis sessions in [...] Gretchen Teran for heart failure therapy tit ration. Thank you for allowing me to participate in the care of this patient. Primary Care Physician: TIEN Mahmood DO 06/14/2018in this encounter Plan of Treatment +--------+---------+ + + + | Date | Type | Specialty | Care Team | Description | +--------+---------+ + + + | 11/22/ | Office | Pulmonology | Denny [place] | | | 2018 | Visit | | Deny Briggs MD [address] | | | | | | [address] | | | | | | [place] [address] | | | | | | [phone] | | | | | | | [...] | ESRD (end stage renal disease) ([facility]) | + + | End stage renal disease | + +
--- OUTSIDE RECORDS SUMMARY | ~2018-08-13 | XMS | Encounter Summary ---
Demographics + + + | Address | [address] | | | [place] [address] | + + + | Home Phone [...] + + + | Author | [facility] | + + + | Organization | [facility] | + + + | Address | Unknown | + + + | Phone | Unavailable | + + + Support + + + + + | Name | Relationship | Address | Phone | + + + + + | Cory Weldon | ECON | [address] | | | | | [place] [address] | | + + + + + | Thania Mallory | ECON | [address] | | | | | [place] [address] | | + + + + + | Deidra Weldon | ECON | [address] | | | | | [place] | | | | | [address] | | + + + + + Care Team Providers + +------+ + | Care Auxiliary Operator Name | Role | Phone | [...] | | 2012 | | Coordinators [address] | Emanuel, [address] [facility] | Update (Evaluation | | | | [address] | [address] | Scheduled) | | | | Road [place], [place] | [place], [place] | | | | | [address] | [address] | | | | | [phone] | [phone] | | | | | | | [...] Denise | | | | | | [place] | | | | | | [address] | | | | | | [phone] | | | | | | | | +--------+ + + + + documented as of this encounter Visit Diagnoses Not on filedocumented in this encounter"
--- OUTSIDE RECORDS SUMMARY | ~2018-08-13 | XMS | Encounter Summary ---
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; | | | | [address] | | Hemodialysis status | | | | [phone] | | ([facility]); Chronic | | | | | | kidney disease, | | | | | | stage V ([facility]) | +--------+------+ + + + [...] Denise | | | | | | [place], [place] | | | | | | [address] | | | | | | [phone] | | | | | | | [...] | e | 9:59 AM | MEDICARE 7826 HSP | procedure are in the | [...] | | | | | stage V ([facility]) | | + +--------+ + [...] | | | | | stage V ([facility]) | | + +--------+ + [...] | | | | | stage V ([facility]) | | + +--------+ + [...] | | | | | stage V ([facility]) | | + +--------+ + [...] | | | | | stage V ([facility]) | | + +--------+ + + + | HIV-1,2 AB/HIV-1 P24 | Routin | 01/20/2015 | Allergic purpura- | Results for this | | AG SCRN | e | 9:59 AM | MEDICARE 2728 HSP | procedure are in the | | | | PST | ([facility] | results section. | | |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 | | | | | | Hemodialysis status | | | | | | ([facility]) Chronic | | | | | | kidney disease, | | | | | | stage V (HCC) | | + +--------+ + + + | RPR SERUM | Routin | 01/20/2015 | Allergic purpura- | Results for this | | | e | 9:59 AM | MEDICARE 2728 HSP | procedure are in the | | | | PST | ([facility] | results section. | | | | [...] the | | | | PST | ([facility] | results section. | | [...] the | | | | PST | ([facility] | results section. | | | | [...] the | | | | PST | ([facility] | results section. | | [...] the | | | | PST | ([facility] | results section. | | | | [...] | | | | PST | ([facility] | results section. | | | [...] the | | | | PST | ([facility] | results section. | | | | [...] + | [facility] - | [address] | [place] [address] | | | [place] | | | | + + + [...] [facility] | [address] | [place] [address] | | | SERVICES, CORE | PARK [...] [facility] | [address] | [place] [address] | | | SERVICES, SPECIAL | PARK [...] | [facility] | [address], | [place] [address] | | | DIAGNOSTIC | [address] [...] + | [facility] - | [address] | [place] [address] | | | [place] | | | [...] + | [facility] - | [address] | [place] [address] | | | [place] | | | | + + + [...] + | [facility] - | [address] | [place] [address] | | | [place] | | | [...] | + + + + + | [facility] - | [address] | [place] [address] | | | [place] | | | [...] by | | | | | | [address] | | | | | | [address]ipp[address], [facility],[place] | | | | | | [address] | | | | | | [phone]. | | | | | | Faisal [...] [facility] | [address] | [place], [place] | | | UNIV PTH - INTFC | | [address] | | + + + + + [...] + | [facility] - | [address] | [place] [address] | | | [place] | | | | + + + [...] by | | | | | | [facility],[address] | | | | | | [place] | | | | | | [address] | | | | | | [phone]. | | | | | | Faisal [...] [facility] | [address] | [place], [place] | | | UNIV PTH - INTFC | | [address] | | + + + + + [...] [facility] | [address] | [place] [address] | | | SERVICES, CORE | PARK [...] [facility] | [address] | [place] [address] | | | SERVICES, CORE | PARK [...] [facility] | [address] | [place] [address] | | | [place] | LONG [...] [facility] | [address] | [place] [address] | | | SERVICES, CORE | PARK [...] + + | [facility] | [address] [facility] | [place] [address] | | | SERVICES, [facility] | [address] | | | + [...] | | | LABORATORY | | | BHUTANESE | | | SERVICES, | | | [...] | + + + + + | [facility] | [address] | [place] [address] | | | SERVICES, CORE | LONG [...]
--- OUTSIDE RECORDS SUMMARY | ~2018-08-13 | XMS | Encounter Summary ---
Demographics + + + | Address | [address] | | | [place] [address] | + + + | Home Phone [...] | | | | | [place] [address] | | + + + + + | Thania Mallory | ECON | [address] | | | | | [place] [address] | | + + + + + | Deidra Weldon | ECON | [address] | | | | | [place] | | | | | [address] | | + + + + + Care Team Providers + +------+ + | Care Sequencing Machine Operator Name | Role | Phone [...] Hospital | | | | | [facility] | [place], [place] | | | | | [facility] | [address] | | | | | [facility] | [phone] | | | | | Mailcode: DCH7 | | | | | | [place] | | | | | | [place], [place] | | | | | | [address] | | | | | | [phone] | | | +--------+ + + + [...] | | | | | | [place] | | | | | | [address] | | | | | | [phone] | | | | | | | | +--------+ + + + + documented as of this encounter Visit Diagnoses Not on filedocumented in this encounter"
--- OUTSIDE RECORDS SUMMARY | ~2018-08-13 | XMS | Encounter Summary ---
Demographics + + + | Address | [address] | | | [place] [address] | + + + | Home Phone [...] | | | | | [place] [address] | | + + + + + | Thania Mallory | ECON | [address] | | | | | [place] [address] | | + + + + + | Deidra Weldon | ECON | [address] | | | | | [place] | | | | | [address] | | + + + + + Care Team Providers + +------+ + | Care Geothermal Heat Pump Machinist Name | Role | Phone | [...] | | | | | [address] [facility] | [facility] | | | | | Road [place], [place] | [place], [place] | | | | | [address] | [address] | | | | | [phone] | | | +--------+ + + + [...] [place] | | | | | | [address] | | | | | | [phone] | | | | | | | | +--------+ + + + + documented as of this encounter Visit Diagnoses Not on filedocumented in this encounter"
--- OUTSIDE RECORDS SUMMARY | ~2018-08-13 | XMS | Encounter Summary ---
Demographics + + + | Address | [address] | | | [place] [address] | + + + | Home Phone [...] Author + + + | Author | [facility] | + + + | Organization | [facility] | + + + | Address | Unknown | + + + | Phone | Unavailable | + + + Support + + + + + | Name | Relationship | Address | Phone | + + + + + | Cory Weldon | ECON | [address] | | | | | [place] [address] | | + + + + + | Thania Mallory | ECON | [address] | | | | | [place] [address] | | + + + + + | Deirda Weldon | ECON | [address] | | | | | [place] | | | | | [address] | | + + + + + Care Team Providers + +------+ + | Care Purchasing Engineer Name | Role | Phone | [...] Griffin | | | | | | [facility]. [facility] | | | | | | [place], [place] | | | | | | [address] | | | +--------+ + + + [...] Denise | | | | | | [place], [place] | | | | | | [address] | | | | | | [phone] | | | | | | | [...] DANILO - | [address], | [place] [address] | | | IMMUNOGENETICS/TRANS | [address] | | | | [facility] | | | | + + + + + documented in this encounter Visit Diagnoses Not on filedocumented in this encounter"
--- OUTSIDE RECORDS SUMMARY | ~2018-08-13 | XMS | Encounter Summary ---
Demographics + + + | Address | [address] | | | [place] [address] | + + + | Home Phone [...] + + + | Author | [facility] [employer] | + + + | Organization | [facility] | + + + | [...] Team Providers + +------+ + | Care Gasoline Engine Assembler Name | Role | Phone | [...] and diastolic heart | | | | [address] | [place] [address] | failure (HCC) | | | | [place] [address] | [phone] | (Primary Dx); | | | | [phone] | | Non-rheumatic mitral | | | [...] in this encounter Instructions Patient Instructions - Gretchen Teran ARNP - 06/28/2018 12:30 PM PDT Please bring [...] take 2nd pill of 25 mg pill zoya chapin and then start taking metoprolol XL 50 mg at night from now on , and valsartan in the mor alexa. 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 Anguiano. I also reviewed note from Dr. Camp at [facility] from April which documented a long [...] and she had declined formal counseling ses sijeremy for her self destructive behavior. Her current [...] Monday followed by Dr. Anguiano, and [facility] ( Dr. Camp) denies hematuria. Musculoskeletal:unknown [...] behavior and non compliance. 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 Vaccines: Current on flu vaccine?. Current on pneumonia vaccine?. Habits/Social : history of smoking, quit 2017, half a pack a day x2 years?. Denies EtOH u se. Smokes 0.5 gm of cannabis daily, transitioning to oral. Denies other recreational or i llicit drug use. Lives in [place] [facility] Medications Prior to Visit Medication Sig [...] No results found for: METF, NMETFX, TFNMFX, SDNATIO12WPU, [id number], TOTEPI CARDIAC PROCEDURES/IMAGING ECHO Last echo: 06/12/2018: ([facility]): Technically adequate study. Sinus rhythm. EF 30-35%. [...] RVSP 67.65 mmHg pulmonic valve normal, mild LA. Moderate pericardial effusion near right at rium. No evidence of cardiac tamponade. IVC WNL, CVP 10-15. Flow patterns and pulmonary v eins indicate systolic blunting. Bowing of intra-arterial septum to the left consistent wit h elevated right-sided pressure Echo: 05/27/2018 ([facility]): Sinus rhythm. Technically adequate study. [...] rmal. No mass, no clot Echo: 01/20/2015: [facility]: EF 73%. Normal in size. RV normal [...] to limb leads. R ate 83 bpm, LA 144 ms, QRS 72 ms, QTC 437 ms, tracing personally reviewed by me. EKG 05/28/2018 : normal sinus rhythm, low voltage QRS except for V2. Poor R wave progressi on, nonspecific T wave abnormalities to inferolateral leads with mild T wave inversions V5, V6. Rate 75 bpm, LA 182 ms, QRS 84 ms, QTC 433 ms,tracing personally reviewed by me. EK06/19/2018: ([facility]): Sinus tachycardia, low voltage QRS to limb leads and V1. Rate 11 5 bpm, LA 154 ms, QRS 86 ms, QTC 473 ms. Tracing personally reviewed by me, and resolution of previous T wave inversions in V5 and V6 EK06/28/2018: ([facility]:) normal sinus rhythm, stable nonspecific T and ST wave abnormality. Rate 99 bpm, LA 162 ms, QRS 88 ms, QTC 477 [...] 97, ALT 231, GFR 7 Labs: 06/20/2018: ([facility]): Troponin T 0.168, BNP 3200. CMP: [...] past surgical history. Problem list. KRISHNA [facility] Cardiology 06/28/2018in this encounter Plan of Treatment +--------+---------+ + + + | Date | Type | Specialty | Care Team | Description | +--------+---------+ + + + | 11/22/ | Office | Pulmonology | Denny [place] | | | 2018 | Visit | | Deny Briggs MD [address] | | | | | | [address] | | | | | | [place] [address] | | | | | | [phone] | | | | | | | [...] + + + in this encounter Results EKG STANDARD 12 LEAD (06/28/2018 12:17 PM) + + + + + | Component | Value | Ref Range | Performed At | + + + + + | Ventricular Rate | 99 | BPM | [facility] [...] + + + + | Calculated P [place] | 45 | degrees | [facility] | + + + + + | Calculated R [place] | -7 | degrees | [facility] | + + + + + | Calculated T [place] | 104 | degrees | [facility] | + + + + + | Diagnosis | Please refer to | | [facility] | | | Providers office visit | | | | | note for Providers | | | | | Interpretation.Confirmed | | | | | by [facility] [place] Read Only, | | | | | [facility] [place] ([id number]), | | | | | acquisitions editor Joey Phillips | | | | | ([id number]) on 06/28/2018 | | | | | 1:01:23 PM | | | + + + + + + + + + + | Performing | Address | City/State/Zipcode | Phone Number | | Organization | | | | + + + + + | [facility] | [address] | [place] [address] | | + + + + + [...]
--- OUTSIDE RECORDS SUMMARY | ~2018-08-13 | XMS | Encounter Summary ---
[...] | | | | | [place] [address] | | + + + + + | Thania Mallory | ECON | [address] | | | | | [place] [address] | | + + + + + | Deidra Weldon | ECON | [address] | | | | | [place] | | | | | [address] | | + + + + + Care Team Providers + +------+ + | Care Research Lab Assistant Name | Role | Phone | [...] Decision | | | | [address] [facility] | [facility] | | | | | Road [place], [place] | [place], [place] | | | | | [address] | [address] | | | | | [phone] | | | +--------+ + + + [...] Denise | | | | | | [place], [place] | | | | | | [address] | | | | | | [phone] | | | | | | | | +--------+ + + + + documented as of this encounter Visit Diagnoses Not on filedocumented in this encounter"
--- OUTSIDE RECORDS SUMMARY | ~2018-08-13 | XMS | Encounter Summary ---
[...] | | | | | [place] [address] | | + + + + + | Thania Mallory | ECON | [address] | | | | | [place] [address] | | + + + + + | Deidra Weldon | ECON | [address] | | | | | [place] | | | | | [address] | | + + + + + Care Team Providers + +------+ + | Care Security Software Engineer Name | Role | Phone [...] Transplant | Kelsi Martinez | SHERIDAN Waitlist (Correct | | 2014 | on | Coordinators [address] | RN [address] | list date) | | | | [address] [facility] | [facility] | | | | | Road [place], [place] | [place], [place] | | | | | [address] | [address] | | | | | [phone] | | | +--------+ + + + [...] Denise | | | | | | [place], [place] | | | | | | [address] | | | | | | [phone] | | | | | | | | +--------+ + + + + documented as of this encounter Visit Diagnoses Not on filedocumented in this encounter"
--- OUTSIDE RECORDS SUMMARY | ~2018-08-13 | XMS | Encounter Summary ---
Demographics + + + | Address | [address] | | | [place] [address] | + + + | Home Phone [...] + + + | Author | [employer] | + + + | Organization [...] Team Providers + +------+ + | Care Design Maker Name | Role | Phone | [...] | Dyspnea, unspecified | | 2019 | Procedure | ECHO | [address], | type | | | | | [address] [place], | | | | | | [place] [address] | | | | | | [phone] | | | | | | | [...] Rosenthal | | | | | | [place] [address] | | | | | | [phone] | | | | | | | [...] + + + in this encounter Results ECHO outside interpretation standard [...] DARA WELDON Date of : 1995 | [place]ICK | | Performing Physician: René Noonan MD [...] MV A Shahid: 0.39 m/s MV Dec [place]: 9.46 m/s2 | | | MV DecT: 106.01 ms MV E Shahid: 1.00 m/s MV E/A Ratio: | | | 2.54 E/E' Sept: 23.82 E' Lat: 0.08 m/s E' Sept: 0.04 | | | m/s RAP: 15 mmHg RV S': 0.11 m/s RVSP: 67.64 mmHg TR | | | maxP.64 mmHg TR Vmax: 3.61 m/s Truck Crane Operator: | | | Authenticated by: René Noonan MD Report Date/Time: -- | | | [id number]:15:25 | | + + + + + | Procedure Note | + + | Cedric, Rad Results In - 06/12/2018 4:15 PM PDT Patient Name: Amira WELDON | | : 1995Accession: [id number] Physician: René Noonan MD | | INDICATIONS [...] (A-L): 31.60 | | ml/m2LAAs A2C: 18.56 [id number] A-L A2C: 58.49 mlLAESV MOD A2C: 54.57 mlLALs A2C: | | 5.00 cmLAAs A4C: 17.96 [id number] A-L A4C: 52.99 mlLAESV MOD A4C: 44.93 mlLALs A4C: | | 5.18 cmLAESV(MOD BP): 49.83 mlRAAs: 18.33 ep6ZJFVD A-L: 57.01 mlRAESV MOD: | | 56.24 mlRALs: 5.02 cmTAPSE: 1.98 cmAV Env.Ti: 227.35 msAV maxP.22 mmHgAV | | meanP.25 mmHgAV Vmax: 1.59 m/Elizabeth Vmean: 1.06 m/Elizabeth VTI: 24.30 cmAVA Vmax: | | 2.68 cm2AVA (VTI): 2.73 yd3NVJK Vmax: 0.00 cm2/m2AVAI (VTI): 0.00 cm2/m2LVOT | | Env.Ti: 210.72 msLVOT maxP.99 mmHgLVOT meanP.87 mmHgLVSI Dopp: 37.17 | | ml/m2LVSV Dopp: 66.54 mlLVOT Vmax: 1.41 m/sLVOT Vmean: 1.03 m/sLVOT VTI: 21.88 | | cmMV A Shahid: 0.39 m/sMV Dec [place]: 9.46 m/s2MV DecT: 106.01 msMV E Shahid: 1.00 | | m/sMV E/A Ratio: 2.54 E/E' Sept: 23.82 E' Lat: 0.08 m/sE' Sept: 0.04 m/sRAP: | | 15 mmHgRV S': 0.11 m/sRVSP: 67.64 mmHgTR maxP.64 mmHgTR Vmax: 3.61 | | m/sSonographer: Authenticated by: René Noonan MDReport Date/Time: -- | | [id number]:15:25IMPRESSION:1. Overall left ventricular systolic function is | [...] A Shahid: 0.39 m/s | |MV Dec [place]: 9.46 m/s2 | |MV DecT: 106.01 ms | |MV E Shahid: 1.00 m/s | |MV E/A Ratio: 2.54 | |E/E' Sept: 23.82 | |E' Lat: 0.08 m/s | |E' Sept: 0.04 m/s | |RAP: 15 mmHg | |RV S': 0.11 m/s | |RVSP: 67.64 mmHg | |TR maxP.64 mmHg | |TR Vmax: 3.61 m/s | | | |Truck Crane Operator: | |Authenticated by: René Noonan MD | |Report Date/Time: -- [id number]:15:25 | | | |IMPRESSION: | |1. Overall [...] | + + + + + | [facility] | [address] | [place] [address] | | + + + + + in this encounter Visit Diagnoses + + | Diagnosis | + + | Dyspnea, unspecified type | + +"
--- OUTSIDE RECORDS SUMMARY | ~2018-08-13 | XMS | Encounter Summary ---
Demographics + + + | Address | [address] | | | [place] [address] | + + + | Home Phone [...] Author + + + | Author | [facility] | + + + | Organization | [facility] | + + + | Address | Unknown | + + + | Phone | Unavailable | + + + Support + + + + + | Name | Relationship | Address | Phone | + + + + + | Cory Weldon | ECON | [address] | | | | | [place] [address] | | + + + + + | Thania Mallory | ECON | [address] | | | | | [place] [address] | | + + + + + | Deidra Weldon | ECON | [address] | | | | | [place] | | | | | [address] | | + + + + + Care Team Providers + +------+ + | Care Supervisor Broadloom Name | Role | Phone | + [...] | | | | | [place] | [facility] | | | | | [facility] | [place], [place] | | | | | [address] [facility] | [address] | | | | | [facility] | [phone] | | | | | Mailcode: DCH7 | | | | | | [place] | | | | | | [place], [place] | | | | | | [address] | | | | | | [phone] | | | +--------+ + + + [...] Denise | | | | | | [place], [place] | | | | | | [address] | | | | | | [phone] | | | | | | | [...] + + + + + | [facility] | [address] | [place] [address] | [phone] | | HOSPITAL | | | | [...] | [address] | [place] [address] | [phone] | | HOSPITAL | | | | + + + + + documented in this encounter Visit Diagnoses Not on filedocumented in this encounter"
--- OUTSIDE RECORDS SUMMARY | ~2018-08-13 | XMS | Encounter Summary ---
Demographics + + + | Address | [address] | | | [place] [address] | + + + | Home Phone [...] + + + | Author | [employer] | + + + | Organization | [facility] | + + + [...] Team Providers + +------+ + | Care Printing Specialist Name | Role | Phone | + +------+ + | Jonathan Alonso MD | PCP | | + +------+ + Reason for Visit + + + | Reason | Comments | + + + | Labs Only | [facility] 06/20/2018 | + + + Encounter Details +--------+ + + + + | Date | Type | Department | Care Team | Description | +--------+ + + + + | 06/28/ | Documentati | ADIEL Hutchinson | Doris Alvarenga MA | Labs Only ([facility] | | 2019 | on Only | Cardiology [place] | | Labs 06/20/2018) | | | | [address] | | | | | | [address] | | | | | | [place] [address] | | | | | | [phone] | | | +--------+ + + + [...] [place] | | | | | | [facility] [place] [place] [address] | | | | | | [phone] | | | | | | | | +--------+---------+ + + + as of this encounter Visit Diagnoses Not on filein this encounter"
--- OUTSIDE RECORDS SUMMARY | ~2018-08-13 | XMS | Encounter Summary ---
Demographics + + + | Address | [address] | | | [place] [address] | + + + | Home Phone [...] | | | | | [place] [address] | | + + + + + | Thania Mallory | ECON | [address] | | | | | [place] [address] | | + + + + + | Deidra Weldon | ECON | [address] | | | | | [place] | | | | | [address] | | + + + + + Care Team Providers + +------+ + | Care Keno Manager Name | Role | Phone | [...] Anil Griffin | | | | | ([facility] | [address] | [address] | | | | | nlein | [place], [place] | Mailcode: | | | | | purpura) | [address] | DC7S | | | | | nephritis | Phone: | [place] | | | | | Hemodialysis | [phone] | [place], [place] | | | | | status | Fax: | [address] | | | | | (HCC) | [phone] | Phone: | | | | | Chronic | | [phone] | | | | | kidney | | Fax: | | | | | disease, | | [phone] | | | | | stage V [...] | | 2014 | Encounter | at [facility] [address] | | | | | | [address] [place] | | | | | | Road Mailcode: | | | | | | [address] [place] | | | | | | [place], [place] | | | | | | [address] | | | | | | [phone] | | | +--------+ + + + [...] Denise | | | | | | [place], [place] | | | | | | [address] | | | | | | [phone] | | | | | | | [...] | e | 1:18 PM | MEDICARE 5943 HSP | procedure are in the | [...] 2:35 PM PST Echocardiography Laboratory | | [address] | | [place] [address] | | ; | | [id number] | | | | Transthoracic Echocardiogram Report | | | | | | NAME: DARA WELDON Study Date: 01/20/2015 1:18:29 PM | | Order #: [id number] ACC #: [id number] | | | | | | : [...] on 01/20/2015 at 2:35:17 PM | | Inspector Rubber Stamp Die: YARITZA KLINE [facility] | | | | | | cc: | | | | | | Modes utilized | | TTE 20031; Spectral Doppler 07006; Color flow Doppler 30244; | | | | | | | | Final | + + + + + + + | Performing | Address | City/State/Zipcode | Phone Number | | Organization | | | | + + + + + | [facility] | [address] | [place], [place] | | | CARDIOLOGY | [address] | [address] | | + + + + + [...]
--- OUTSIDE RECORDS SUMMARY | ~2018-08-13 | XMS | Encounter Summary ---
Demographics + + + | Address | [address] | | | [place] [address] | + + + | Home Phone [...] Author + + + | Author | [facility] | + + + | Organization | [facility] | + + + | Address | Unknown | + + + | Phone | Unavailable | + + + Support + + + + + | Name | Relationship | Address | Phone | + + + + + | Cory Weldon | ECON | [address] | | | | | [place] [address] | | + + + + + | Thania Mallory | ECON | [address] | | | | | [place] [address] | | + + + + + | Deidra Weldon | ECON | [address] | | | | | [place] | | | | | [address] | | + + + + + Care Team Providers + +------+ + | Care Senior Care Specialist Name | Role | Phone | [...] Shun | | | | | at [facility] | [facility] | | | | | [address] | [place] [address] | | | | | [facility] | | | | | | Mailcode: OP12B [facility] | | | | | | [facility] | | | | | | [facility], | | | | | | [place] [address] | | | | | | [phone] | | | +--------+ + + + [...] | | | | | | [place], [place] | | | | | | [address] | | | | | | [phone] | | | | | | | [...] | e | 11:49 AM | MEDICARE 3801 | procedure are in the | | [...] view image for the detailed interpretation from [facility] results. | CARDIOLOGY | + + + + + | Procedure Note | + + | Interface, Cardiology Results - 12/21/2012 9:38 AM PDT Please click on view image | | for the detailed interpretation from [facility] results. 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
--- OUTSIDE RECORDS SUMMARY | ~2018-08-13 | XMS | Encounter Summary ---
Demographics + + + | Address | [address] | | | [place] [address] | + + + | Home Phone [...] | | | | | [place] [address] | | + + + + + | Thania Mallory | ECON | [address] | | | | | [place] [address] | | + + + + + | Deidra Weldon | ECON | [address] | | | | | [place] | | | | | [address] | | + + + + + Care Team Providers + +------+ + | Care Contact Centre Supervisor Name | Role | Phone | [...] | (HCC) | Caro Chan | [place], | | | | | Allergic | [place], [place] | [place] | | | | | purpura | [address] | [address] | | | | | (HCC) | Phone: | Phone: | | | | | | [phone] | [phone] | | | | | | Fax: | Fax: | | | | | | [phone] | [phone] | +--------+--------+ + + + + Encounter Details +--------+---------+ + + + | Date | Type | Department | Care Team | Description | +--------+---------+ + + + | 12/19/ | Office | Kidney Transplant | Clinic, [address]tx [address] | Patient on | | 2012 | Visit | at Physician's | [facility] | peritoneal dialysis | | | | [facility] [address] [place], [place] | ([facility]) (Primary Dx); | | | | [facility] | [address] | Unspecified | | | | Road Mailcode: L590 | | essential | | | | Physicians | | hypertension; 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 [place] St[place] MD it architect, Division of Abdominal Organ Transplantation Professor of Urology CC: Sudhakar Joy MD [address] [place] [address] documented in this encoun ter Plan of Treatment +--------+ + + + + | Date | Type | Specialty | Care Team | Description | +--------+ + + + + | 05/04/ | Hospital | Adult Acute Care | El Starr MD | | | 2022 | Encounter | | [address] | | | | | | [place], [place] | | | | | | [address] | | | | | | [phone] | | | | | | | [...]
--- OUTSIDE RECORDS SUMMARY | ~2018-08-13 | XMS | Encounter Summary ---
Demographics + + + | Address | [address] | | | [place] [address] | + + + | Home Phone [...] | | | | | [place] [address] | | + + + + + | Thania Mallory | ECON | [address] | | | | | [place] [address] | | + + + + + | Deidra Weldon | ECON | [address] | | | | | [place] | | | | | [address] | | + + + + + Care Team Providers + +------+ + | Care Military Pay Technician Name | Role | Phone | [...] | Update | | | | [facility] | [facility] | | | | | Road [place], [place] | [place], [place] | | | | | [address] | [address] | | | | | [phone] | | | +--------+ + + + [...] Denise | | | | | | [place] | | | | | | [address] | | | | | | [phone] | | | | | | | | +--------+ + + + + documented as of this encounter Visit Diagnoses Not on filedocumented in this encounter"
--- OUTSIDE RECORDS SUMMARY | ~2018-08-13 | XMS | Encounter Summary ---
Demographics + + + | Address | [address] | | | [place] [address] | + + + | Home Phone [...] | | | | | [place] [address] | | + + + + + | Thania Mallory | ECON | [address] | | | | | [place] [address] | | + + + + + | Deidra Weldon | ECON | [address] | | | | | [place] | | | | | [address] | | + + + + + Care Team Providers + +------+ + | Care Instrument Lens Inspector Name | Role | Phone | [...] [address] | Update (changes to | | | | [address] | [address] | pt's living/support | | | | Road [place], [place] | [place], [place] | situation) | | | | [address] | [address] | | | | | [phone] | | | +--------+ + + + [...] Denise | | | | | | [place] | | | | | | [address] | | | | | | [phone] | | | | | | | | +--------+ + + + + documented as of this encounter Visit Diagnoses Not on filedocumented in this encounter"
--- OUTSIDE RECORDS SUMMARY | ~2018-08-13 | XMS | Encounter Summary ---
Demographics + + + | Address | [address] | | | [place] [address] | + + + | Home Phone [...] + + + | Author | [facility] | + + + | Organization | [facility] | + + + | Address | Unknown | + + + | Phone | Unavailable | + + + Support + + + + + | Name | Relationship | Address | Phone | + + + + + | Cory Weldon | ECON | [address] | | | | | [place] [address] | | + + + + + | Thania Mallory | ECON | [address] | | | | | [place] [address] | | + + + + + | Deidra Weldon | ECON | [address] | | | | | [place] | | | | | [address] | | + + + + + Care Team Providers + +------+ + | Care General Farmworker Name | Role | Phone | + [...] [address] | Update (Preferred | | | | [address] | [address] | lab/Provider | | | | Road [place], [place] | [place], [place] | updated) | | | | [address] | [address] | | | | | [phone] | [phone] | | | | | | | [...] Denise | | | | | | [place] | | | | | | [address] | | | | | | [phone] | | | | | | | | +--------+ + + + + documented as of this encounter Visit Diagnoses Not on filedocumented in this encounter"
--- OUTSIDE RECORDS SUMMARY | ~2018-08-13 | XMS | Encounter Summary ---
Demographics + + + | Address | [address] | | | [place] [address] | + + + | Home Phone [...] + + + | Author | [facility] | + + + | Organization | [facility] | + + + | Address | Unknown | + + + | Phone | Unavailable | + + + Support + + + + + | Name | Relationship | Address | Phone | + + + + + | Cory Weldon | ECON | [address] | | | | | [place] [address] | | + + + + + | Thania Mallory | ECON | [address] | | | | | [place] [address] | | + + + + + | Deidra Weldon | ECON | [address] | | | | | [place] | | | | | [address] | | + + + + + Care Team Providers + +------+ + | Care Billing Clerk Name | Role | Phone | [...] | list) | | | | [address] [facility] | [facility] | | | | | Road [place], [place] | [place], [place] | | | | | [address] | [address] | | | | | [phone] | | | +--------+ + + + [...] Denise | | | | | | [place] | | | | | | [address] | | | | | | [phone] | | | | | | | | +--------+ + + + + documented as of this encounter Visit Diagnoses Not on filedocumented in this encounter"
--- OUTSIDE RECORDS SUMMARY | ~2018-08-13 | XMS | Encounter Summary ---
Demographics + + + | Address | [address] | | | [place] [address] | + + + | Home Phone [...] | | | | | [place] [address] | | + + + + + | Thania Mallory | ECON | [address] | | | | | [place] [address] | | + + + + + | Deidra Weldon | ECON | [address] | | | | | [place] | | | | | [address] | | + + + + + Care Team Providers + +------+ + | Care Cell Technician Name | Role | Phone | [...] | | Jonathan Gallagher, | [address] | | | | | | [address] | [address] | | | | | | [address] | [address] | | | | | | [facility] | Road | | | | | | [address] | Mailcode: | | | | | | [address] | [address] | | | | | | [place] | [place] | | | | | | [place] | [place], [place] | | | | | | [address] | [address] | | | | | | Phone: | Phone: | | | | | | [phone] | [phone] | | | | | | Fax: | | | | | | | [phone] | | +--------+--------+ + + + + Encounter Details +--------+---------+ + + + | Date | Type | Department | Care Team | Description | +--------+---------+ + + + | 11/16/ | Office | Specialty Clinics | Sudhakar Joy | 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 | | | | | | Road [place], [place] | | | | | | [address] | | +--------+---------+ + + + Social [...] soon. Have your friend call Brittney about [phone] Sudhakar Joy MD documented in this encounter [...] [address]; Mail code [facility] [place], [place] [address] documented in this encounter Plan of Treatment +--------+ + + + + | Date | Type | Specialty | Care Team | Description | +--------+ + + + + | 05/04/ | Hospital | Adult Acute Care | El Starr MD | | | 2022 | Encounter | | [address] | | | | | | [place], [place] | | | | | | [address] | | | | | | [phone] | | | | | | | [...]
--- OUTSIDE RECORDS SUMMARY | ~2018-08-13 | XMS | Encounter Summary ---
Demographics + + + | Address | [address] | | | [place] [address] | + + + | Home Phone [...] | | | | | [place] [address] | | + + + + + | Thania Mallory | ECON | [address] | | | | | [place] [address] | | + + + + + | Deidra Weldon | ECON | [address] | | | | | [place] | | | | | [address] | | + + + + + Care Team Providers + +------+ + | Care Market Research Specialist Name | Role | Phone | [...] | on | Coordinators [address] | [place], [place] | | | | | [address] [place] | [address] | | | | | Road [place], [place] | | | | | | [address] | | | | | | [phone] | | | +--------+ + + + [...] [facility] | | | | | | [address] | | | | | | [phone] | | | | | | | | +--------+ + + + + documented as of this encounter Visit Diagnoses Not on filedocumented in this encounter"
--- OUTSIDE RECORDS SUMMARY | ~2018-08-13 | XMS | Encounter Summary ---
Demographics + + + | Address | [address] | | | [place] [address] | + + + | Home Phone [...] | | | | | [place] [address] | | + + + + + | Thania Mallory | ECON | [address] | | | | | [place] [address] | | + + + + + | Deidra Weldon | ECON | [address] | | | | | [place] | | | | | [address] | | + + + + + Care Team Providers + +------+ + | Care Clinical Data Programmer Name | Role | Phone | [...] [place] | | | | | | [facility] | | | | | | [place], [place] | | | | | | [address] | | | +--------+ + + + [...] Denise | | | | | | [place], [place] | | | | | | [address] | | | | | | [phone] | | | | | | | [...] [facility] - | [address], | [place] [address] | | | IMMUNOGENETICS/TRANS | [address] | | | | [facility] | | | | + + + + + documented in this encounter Visit Diagnoses Not on filedocumented in this encounter"
--- OUTSIDE RECORDS SUMMARY | ~2018-08-13 | XMS | Encounter Summary ---
Demographics + + + | Address | [address] | | | [place] [address] | + + + | Home Phone [...] Author + + + | Author | [facility] | + + + | Organization | [facility] | + + + | Address | Unknown | + + + | Phone | Unavailable | + + + Support + + + + + | Name | Relationship | Address | Phone | + + + + + | Cory Weldon | ECON | [address] | | | | | [place] [address] | | + + + + + | Thania Mallory | ECON | [address] | | | | | [place] [address] | | + + + + + | Deidra Weldon | ECON | [address] | | | | | [place] | | | | | [address] | | + + + + + Care Team Providers + +------+ + | Care Radial Drill Press Operator Name | Role | Phone | + +------+ + | Shahid Camargo MD | PCP | Unavailable | + +------+ + Encounter Details +--------+ + + + + | Date | Type | Department | Care Team | Description | +--------+ + + + + | 12/20/ | Hospital | Radiology at [facility] | | | | 2012 | Encounter | [address] | | | | | | [facility] | | | | | | Mailcode: L340 | | | | | | [place] | | | | | | [place], [place] | | | | | | [address] | | | | | | [phone] | | | +--------+ + + + [...] Denise | | | | | | [place], [place] | | | | | | [address] | | | | | | [phone] | | | | | | | [...]
--- OUTSIDE RECORDS SUMMARY | ~2018-08-13 | XMS | Encounter Summary ---
Demographics + + + | Address | [address] | | | [place] [address] | + + + | Home Phone [...] Author + + + | Author | [facility] | + + + | Organization | [facility] | + + + | Address | Unknown | + + + | Phone | Unavailable | + + + Support + + + + + | Name | Relationship | Address | Phone | + + + + + | Cory Weldon | ECON | [address] | | | | | [place] [address] | | + + + + + | Thania Mallory | ECON | [address] | | | | | [place] [address] | | + + + + + | Deidra Weldon | ECON | [address] | | | | | [place] | | | | | [address] | | + + + + + Care Team Providers + +------+ + | Care Mild Disabilities Teacher Name | Role | Phone | [...] Update ([place] | | | | [address] | [facility] | clinic visit - | | | | Road [place], [place] | [place], [place] | psychosocial | | | | [address] | [address] | readiness update) | | | | [phone] | | | +--------+ + + + [...] Denise | | | | | | [place], [place] | | | | | | [address] | | | | | | [phone] | | | | | | | | +--------+ + + + + documented as of this encounter Visit Diagnoses Not on filedocumented in this encounter"
--- OUTSIDE RECORDS SUMMARY | ~2018-08-13 | XMS | Encounter Summary ---
Demographics + + + | Address | [address] | | | [place] [address] | + + + | Home Phone [...] Author | [facility] | | | and [place]ana | + + + | Organization | [facility] | | [...] Providers + +------+ + | Care Certified Coder Name | Role | Phone | [...] | [address] [place] | [place] [address] | | | | | [address] | [phone] | | | | | [address] | | | | | | [phone] | | | +--------+ + + + [...] documented as of this encounter Progress Raquel AliceaCalin bennettestevan Briggs - 07/03/2018 1512 PDTReferral We received another referral from [facility] dialysis [facility] today. However, we had clos [...] I also called the Fina Sparrow social service technician, and let her know t kimberly Diamond can be re-referred after she has her marijuana medicinal card. Electronically sig carlos by Roro Myles at 07/03/2018 15:17 PDTdocumented in this encounter Plan of Treatment Not on filedocumented as of this encounter Visit Diagnoses Not on filedocumented in this encounter"
--- OUTSIDE RECORDS SUMMARY | ~2018-08-13 | XMS | Encounter Summary ---
Demographics + + + | Address | [address] | | | [place] [address] | + + + | Home Phone [...] | | | | | [place] [address] | | + + + + + | Thania Mallory | ECON | [address] | | | | | [place] [address] | | + + + + + | Deidra Weldon | ECON | [address] | | | | | [place] | | | | | [address] | | + + + + + Care Team Providers + +------+ + | Care Log Sorter Name | Role | Phone | [...] | | 2013 | | Coordinators [address] Castell[address] MD [address] | | | | | [address] [facility] | [facility] | | | | | [place], [place] | [place], [place] | | | | | [address] | [address] | | | | | [phone] | [phone] | | | | | | | [...] Denise | | | | | | [place], [place] | | | | | | [address] | | | | | | [phone] | | | | | | | | +--------+ + + + + documented as of this encounter Visit Diagnoses Not on filedocumented in this encounter"
--- OUTSIDE RECORDS SUMMARY | ~2018-08-13 | XMS | Encounter Summary ---
Demographics + + + | Address | [address] | | | [place] [address] | + + + | Home Phone [...] + + + | Author | [facility] | + + + | Organization | [facility] | + + + | Address | Unknown | + + + | Phone | Unavailable | + + + Support + + + + + | Name | Relationship | Address | Phone | + + + + + | Cory Weldon | ECON | [address] | | | | | [place] [address] | | + + + + + | Thania Mallory | ECON | [address] | | | | | [place] [address] | | + + + + + | Deidra Weldon | ECON | [address] | | | | | [place] | | | | | [address] | | + + + + + Care Team Providers + +------+ + | Care Channel Director Name | Role | Phone | [...] Update | | | | Alexander | [facility] | | | | | [facility] | [place], [place] | | | | | [address] | [address] | | | | | [facility] | | | | | | Mailcode: [id number] | | | | | | Alexander | | | | | | [place], [place] | | | | | | [address] | | | | | | [phone] | | | +--------+ + + + [...] Denise | | | | | | [place] | | | | | | [address] | | | | | | [phone] | | | | | | | | +--------+ + + + + documented as of this encounter Visit Diagnoses Not on filedocumented in this encounter"
--- OUTSIDE RECORDS SUMMARY | ~2018-08-13 | XMS | Encounter Summary ---
Demographics + + + | Address | [address] | | | [place] [address] | + + + | Home Phone [...] | | | | | [place] [address] | | + + + + + | Thania Mallory | ECON | [address] | | | | | [place] [address] | | + + + + + | Deidra Weldon | ECON | [address] | | | | | [place] | | | | | [address] | | + + + + + Care Team Providers + +------+ + | Care Fagoting Machine Operator Name | Role | Phone [...] | | | | | Alexander | [facility] | | | | | [facility] | [place], [place] | | | | | [address] | [address] | | | | | [facility] | [phone] | | | | | Mailcode: [id number] | | | | | | Alexander | | | | | | [place], [place] | | | | | | [address] | | | | | | [phone] | | | +--------+ + + + [...] | | | | | | [place] | | | | | | [address] | | | | | | [phone] | | | | | | | | +--------+ + + + + documented as of this encounter Visit Diagnoses Not on filedocumented in this encounter"
--- OUTSIDE RECORDS SUMMARY | ~2018-08-13 | XMS | Encounter Summary ---
Demographics + + + | Address | [address] | | | [place] [address] | + + + | Home Phone [...] | | | | | [place] [address] | | + + + + + | Thania Mallory | ECON | [address] | | | | | [place] [address] | | + + + + + | Deidra Weldon | ECON | [address] | | | | | [place] | | | | | [address] | | + + + + + Care Team Providers + +------+ + | Care Older Adult Social Work Specialist Name | Role | Phone | [...] at [facility] [address] | [address] | Family sheet & | | | | [facility] | [facility] [address] | crossmatch report) | | | | Mailcode: [id number] | [place], [place] | | | | | Physicians [address] | [address] | | | | | [address] [place], | [phone] | | | | | [place] [address] | | | | | | [phone] | | | +--------+ + + + [...] [place] | | | | | | [address] | | | | | | [phone] | | | | | | | | +--------+ + + + + documented as of this encounter Visit Diagnoses Not on filedocumented in this encounter"
--- OUTSIDE RECORDS SUMMARY | ~2018-08-13 | XMS | Encounter Summary ---
Demographics + + + | Address | [address] | | | [place] [address] | + + + | Home Phone [...] | | | | | [place] [address] | | + + + + + | Thania Mallory | ECON | [address] | | | | | [place] [address] | | + + + + + | Deidra Weldon | ECON | [address] | | | | | [place] | | | | | [address] | | + + + + + Care Team Providers + +------+ + | Care Battery Recharger Name | Role | Phone | + [...] (Drug | | | | [address] [facility] | [address] | screens) | | | | Road [place], [place] | [place], [place] | | | | | [address] | [address] | | | | | [phone] | | | +--------+ + + + [...] Denise | | | | | | [place] | | | | | | [address] | | | | | | [phone] | | | | | | | | +--------+ + + + + documented as of this encounter Visit Diagnoses Not on filedocumented in this encounter"
--- OUTSIDE RECORDS SUMMARY | ~2018-08-13 | XMS | Encounter Summary ---
Demographics + + + | Address | [address] | | | [place] [address] | + + + | Home Phone [...] | | | | | [place] [address] | | + + + + + | Thania Mallory | ECON | [address] | | | | | [place] [address] | | + + + + + | Deidra Weldon | ECON | [address] | | | | | [place] | | | | | [address] | | + + + + + Care Team Providers + +------+ + | Care Designer Name | Role | Phone | [...] | | 2012 | ann | [address] [facility] | | | | | | [facility] | | | | | | [place], [place] | | | | | | [address] | | | +--------+ + + + [...] Denise | | | | | | [place], [place] | | | | | | [address] | | | | | | [phone] | | | | | | | | +--------+ + + + + documented as of this encounter Visit Diagnoses Not on filedocumented in this encounter"
--- OUTSIDE RECORDS SUMMARY | ~2018-08-13 | XMS | Encounter Summary ---
Demographics + + + | Address | [address] | | | [place] [address] | + + + | Home Phone [...] | | | | | [place] [address] | | + + + + + | Thania Mallory | ECON | [address] | | | | | [place] [address] | | + + + + + | Deidra Weldon | ECON | [address] | | | | | [place] | | | | | [address] | | + + + + + Care Team Providers + +------+ + | Care Delivery Of Shopping News Name | Role | Phone | [...] | | | | | [address] [facility] | [facility] | | | | | Road [place], [place] | [place], [place] | | | | | [address] | [address] | | | | | [phone] | | | +--------+ + + + [...] Denise | | | | | | [place], [place] | | | | | | [address] | | | | | | [phone] | | | | | | | | +--------+ + + + + documented as of this encounter Visit Diagnoses Not on filedocumented in this encounter"
--- OUTSIDE RECORDS SUMMARY | ~2018-08-13 | XMS | Encounter Summary ---
Demographics + + + | Address | [address] | | | [place] [address] | + + + | Home Phone [...] | | | | | [place] [address] | | + + + + + | Thania Mallory | ECON | [address] | | | | | [place] [address] | | + + + + + | Deidra Weldon | ECON | [address] | | | | | [place] | | | | | [address] | | + + + + + Care Team Providers + +------+ + | Care Optics Engineer Name | Role | Phone | [...] (HCC) | | | | Alexander | [facility] | (Primary Dx) | | | | [facility] | [place], [place] | | | | | [address] | [address] | | | | | [facility] | [phone] | | | | | Mailcode: [id number] | | | | | | Alexander | | | | | | [place], [place] | | | | | | [address] | | | | | | [phone] | | | +--------+ + + + [...] Denise | | | | | | [place], [place] | | | | | | [address] | | | | | | [phone] | | | | | | | [...] | e | 1:18 PM | MEDICARE 9[address] | procedure are in the | | | | PST | ([facility]onlein | results section. | | |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 | | | | | | Hemodialysis status | | | | | | ([facility]) Chronic | | | | | | kidney disease, | | | | | | stage V ([facility]) | | + +--------+ + + + documented in this encounter Visit Diagnoses + + | Diagnosis | + + | End-stage renal disease (HCC) - Primary End stage renal disease | + + documented in this encounter"
--- OUTSIDE RECORDS SUMMARY | ~2018-08-13 | XMS | Encounter Summary ---
Demographics + + + | Address | [address] | | | [place] [address] | + + + | Home Phone [...] Author + + + | Author | [facility] | + + + | Organization | [facility] | + + + | Address | Unknown | + + + | Phone | Unavailable | + + + Support + + + + + | Name | Relationship | Address | Phone | + + + + + | Cory Weldon | ECON | [address] | | | | | [place] [address] | | + + + + + | Thania Mallory | ECON | [address] | | | | | [place] [address] | | + + + + + | Deidra Weldon | ECON | [address] | | | | | [place] | | | | | [address] | | + + + + + Care Team Providers + +------+ + | Care Design Technology Teacher Name | Role | Phone | [...] on | | | | Alexander | [address] | 03/16/12 to [place]) | | | | [facility] | [place], [place] | | | | | [address] | [address] | | | | | [facility] | [phone] | | | | | Mailcode: [id number] | | | | | | Alexander | | | | | | [place], [place] | | | | | | [address] | | | | | | [phone] | | | +--------+ + + + [...] Denise | | | | | | [place], [place] | | | | | | [address] | | | | | | [phone] | | | | | | | | +--------+ + + + + documented as of this encounter Visit Diagnoses Not on filedocumented in this encounter"
--- OUTSIDE RECORDS SUMMARY | ~2018-08-13 | XMS | Encounter Summary ---
Demographics + + + | Address | [address] | | | [place] [address] | + + + | Home Phone [...] | | | | | [place] [address] | | + + + + + | Thania Mallory | ECON | [address] | | | | | [place] [address] | | + + + + + | Deidra Weldon | ECON | [address] | | | | | [place] | | | | | [address] | | + + + + + Care Team Providers + +------+ + | Care Physician Office Specialist Name | Role | Phone | [...] [facility] | [facility] | | | | | Road [place], [place] | [place], [place] | | | | | [address] | [address] | | | | | [phone] | | | +--------+ + + + [...] | | | | | | [place] | | | | | | [address] | | | | | | [phone] | | | | | | | | +--------+ + + + + documented as of this encounter Visit Diagnoses Not on filedocumented in this encounter"
--- OUTSIDE RECORDS SUMMARY | ~2018-08-13 | XMS | Encounter Summary ---
Demographics + + + | Address | [address] | | | [place] [address] | + + + | Home Phone [...] + + + | Author | [employer] | + + + | Organization | [facility] | + + [...] + +------+ + | Care Credit Risk Modeler Name | Role | Phone | + +------+ + | Jonathan Alonso MD | PCP | | + +------+ + Encounter Details +--------+ + + + + | Date | Type | Department | Care Team | Description | +--------+ + + + + | 06/25/ | Telephone | [facility] | Doris Alvarenga MA | | | 2018 | | Cardiology Jessy | | | | | | [address] | | | | | | [place] | | | | | | [address] | | | | | | [phone] | | | +--------+ + + + [...] Rosenthal | | | | | | [place] [address] | | | | | | [phone] | | | | | | | | +--------+---------+ + + + as of this encounter Visit Diagnoses Not on filein this encounter"
--- OUTSIDE RECORDS SUMMARY | ~2018-08-13 | XMS | Encounter Summary ---
Demographics + + + | Address | [address] | | | [place] [address] | + + + | Home Phone [...] | | | | | [place] [address] | | + + + + + | Thania Mallory | ECON | [address] | | | | | [place] [address] | | + + + + + | Deidra Weldon | ECON | [address] | | | | | [place] | | | | | [address] | | + + + + + Care Team Providers + +------+ + | Care Welcome Wagon Hostess Name | Role | Phone | [...] | Decision | | | | W [facility] | [facility] | | | | | Road [place], [place] | [place], [place] | | | | | [address] | [address] | | | | | [phone] | | | +--------+ + + + [...] [place] | | | | | | [address] | | | | | | [phone] | | | | | | | | +--------+ + + + + documented as of this encounter Visit Diagnoses Not on filedocumented in this encounter"
--- OUTSIDE RECORDS SUMMARY | ~2018-08-13 | XMS | Encounter Summary ---
Demographics + + + | Address | [address] | | | [place] [address] | + + + | Home Phone [...] | | | | | [place] [address] | | + + + + + | Thania Mallory | ECON | [address] | | | | | [place] [address] | | + + + + + | Deidra Weldon | ECON | [address] | | | | | [place] | | | | | [address] | | + + + + + Care Team Providers + +------+ + | Care Webfocus Developer Name | Role | Phone | [...] [address] | RN [address] [facility] | | | | | [facility] | [facility] | | | | | Road [place], [place] | [place], [place] | | | | | [address] | [address] | | | | | [phone] | | | +--------+ + + + [...] Denise | | | | | | [place] | | | | | | [address] | | | | | | [phone] | | | | | | | | +--------+ + + + + documented as of this encounter Visit Diagnoses Not on filedocumented in this encounter"
--- OUTSIDE RECORDS SUMMARY | ~2018-08-13 | XMS | Encounter Summary ---
Demographics + + + | Address | [address] | | | [place] [address] | + + + | Home Phone [...] + + + | Author | [employer] | + + + | Organization | [facility] | + + + | Address | Unknown | + + + | Phone | Unavailable | + + + Support + + +---------+ + | Name | Relationship | Address | Phone | + + +---------+ + | Thanai Mallory | ECON | Unknown | | + + +---------+ + | Saundra Mallory | ECON | Unknown | | + + +---------+ + Care Team Providers + +------+ + | Care Metal Pickling Equipment Operator Name | Role | Phone | + +------+ + | Jonathan Alonso MD | PCP | | + +------+ + Reason for Visit +--------+ + | Reason | Comments | +--------+ + | Other | [facility] Notes & Testing 07/18/2018 | +--------+ + Encounter Details +--------+ + + + + | Date | Type | Department | Care Team | Description | +--------+ + + + + | 08/01/ | Documentati | [facility] [place] | Lyle, Doris Briggs, [place] | Other ([facility] | | 2019 | on Only | Cardiology [place] | | ED Notes & Testing | | | | [address] | | 07/18/2018) | | | | [address] | | | | | | [place] [address] | | | | | | [phone] | | | +--------+ + + + [...] | | | | | [place] [address] | | | | | | [phone] | | | | | | | | +--------+---------+ + + + as of this encounter Visit Diagnoses Not on filein this encounter"
--- OUTSIDE RECORDS SUMMARY | ~2018-08-13 | XMS | Encounter Summary ---
Demographics + + + | Address | [address] | | | [place] [address] | + + + | Home Phone [...] | | | | | [place] [address] | | + + + + + | Thania Mallory | ECON | [address] | | | | | [place] [address] | | + + + + + | Deidra Weldon | ECON | [address] | | | | | [place] | | | | | [address] | | + + + + + Care Team Providers + +------+ + | Care Advisory Internship Name | Role | Phone | [...] | Summary | | | | [facility] | [facility] | | | | | Road [place], [place] | [place], [place] | | | | | [address] | [address] | | | | | [phone] | | | +--------+ + + + [...] [place] | | | | | | [address] | | | | | | [phone] | | | | | | | | +--------+ + + + + documented as of this encounter Visit Diagnoses Not on filedocumented in this encounter"
--- OUTSIDE RECORDS SUMMARY | ~2018-08-13 | XMS | Encounter Summary ---
Demographics + + + | Address | [address] | | | [place] [address] | + + + | Home Phone [...] | | | | | [place] [address] | | + + + + + | Thania Mallory | ECON | [address] | | | | | [place] [address] | | + + + + + | Deidra Weldon | ECON | [address] | | | | | [place] | | | | | [address] | | + + + + + Care Team Providers + +------+ + | Care Rotary Dryer Operator Name | Role | Phone | [...] form) | | | | [address] [facility] | [facility] | | | | | Road [place], [place] | [place], [place] | | | | | [address] | [address] | | | | | [phone] | | | +--------+ + + + [...] Denise | | | | | | [place] | | | | | | [address] | | | | | | [phone] | | | | | | | | +--------+ + + + + documented as of this encounter Visit Diagnoses Not on filedocumented in this encounter"
--- OUTSIDE RECORDS SUMMARY | ~2018-08-13 | XMS | Encounter Summary ---
Demographics + + + | Address | [address] | | | [place] [address] | + + + | Home Phone [...] | | | | | [place] [address] | | + + + + + | Thania Mallory | ECON | [address] | | | | | [place] [address] | | + + + + + | Deidra Weldon | ECON | [address] | | | | | [place] | | | | | [address] | | + + + + + Care Team Providers + +------+ + | Care Ip Litigation Associate Name | Role | Phone | [...] | | [address] | [facility], | | | | | [facility] | [place] [address] | | | | | [place], [place] | [phone] | | | | | [address] | | | +--------+ + + + [...] | | | | | | [place], [place] | | | | | | [address] | | | | | | [phone] | | | | | | | | +--------+ + + + + documented as of this encounter Visit Diagnoses Not on filedocumented in this encounter"
--- OUTSIDE RECORDS SUMMARY | ~2018-08-13 | XMS | Encounter Summary ---
Demographics + + + | Address | [address] | | | [place] [address] | + + + | Home Phone [...] | | | | | [place] [address] | | + + + + + | Thania Mallory | ECON | [address] | | | | | [place] [address] | | + + + + + | Deidra Weldon | ECON | [address] | | | | | [place] | | | | | [address] | | + + + + + Care Team Providers + +------+ + | Care Tie Knitter Helper Name | Role | Phone | [...] | | | | | Alexander | [facility] | | | | | [facility] | [place], [place] | | | | | [address] | [address] | | | | | [facility] | [phone] | | | | | Mailcode: DCH7 | | | | | | Alexander | | | | | | [place], [place] | | | | | | [address] | | | | | | [phone] | | | +--------+ + + + [...] Denise | | | | | | [place], [place] | | | | | | [address] | | | | | | [phone] | | | | | | | | +--------+ + + + + documented as of this encounter Visit Diagnoses Not on filedocumented in this encounter"
--- OUTSIDE RECORDS SUMMARY | ~2018-08-13 | XMS | Encounter Summary ---
Demographics + + + | Address | [address] | | | [place] [address] | + + + | Home Phone [...] | | | | | [place] [address] | | + + + + + | Thania Mallory | ECON | [address] | | | | | [place] [address] | | + + + + + | Deidra Weldon | ECON | [address] | | | | | [place] | | | | | [address] | | + + + + + Care Team Providers + +------+ + | Care Manager Enterprise Name | Role | Phone | + +------+ + | Shahid Camargo MD | PCP | Unavailable | + +------+ + Encounter Details +--------+ + + + + | Date | Type | Department | Care Team | Description | +--------+ + + + + | 12/19/ | Document-Sc | UNKNOWN DEPARTMENT | Unknown . | | | 2012 | ann | [address] [facility] | | | | | | [facility] | | | | | | [place], [place] | | | | | | [address] | | | +--------+ + + + [...] Denise | | | | | | [place], [place] | | | | | | [address] | | | | | | [phone] | | | | | | | | +--------+ + + + + documented as of this encounter Visit Diagnoses Not on filedocumented in this encounter"
--- OUTSIDE RECORDS SUMMARY | ~2018-08-13 | XMS | Encounter Summary ---
Demographics + + + | Address | [address] | | | [place] [address] | + + + | Home Phone [...] | | | | | [place] [address] | | + + + + + | Thania Mallory | ECON | [address] | | | | | [place] [address] | | + + + + + | Deidra Weldon | ECON | [address] | | | | | [place] | | | | | [address] | | + + + + + Care Team Providers + +------+ + | Care Mail Messenger Contractor Name | Role | Phone | [...] Shun | | | | | [facility] | [facility] | | | | | Road [place], [place] | [place], [place] | | | | | [address] | [address] | | | | | [phone] | | | +--------+ + + + [...] Denise | | | | | | [place] | | | | | | [address] | | | | | | [phone] | | | | | | | | +--------+ + + + + documented as of this encounter Visit Diagnoses Not on filedocumented in this encounter"
--- OUTSIDE RECORDS SUMMARY | ~2018-08-13 | XMS | Encounter Summary ---
Demographics + + + | Address | [address] | | | [place] [address] | + + + | Home Phone [...] | | | | | [place] [address] | | + + + + + | Thania Mallory | ECON | [address] | | | | | [place] [address] | | + + + + + | Deidra Weldon | ECON | [address] | | | | | [place] | | | | | [address] | | + + + + + Care Team Providers + +------+ + | Care Advertising Space Clerk Name | Role | Phone | [...] | Update | | | | [address] [facility] | [facility] | | | | | [address] [place], [place] | [place], [place] | | | | | [address] | [address] | | | | | [phone] | | | +--------+ + + + [...] [facility] | | | | | | [address] | | | | | | [phone] | | | | | | | | +--------+ + + + + documented as of this encounter Visit Diagnoses Not on filedocumented in this encounter"
--- OUTSIDE RECORDS SUMMARY | ~2018-08-13 | XMS | Encounter Summary ---
Demographics + + + | Address | [address] | | | [place] [address] | + + + | Home Phone [...] | [facility] | | | and [place] | + + + | Organization | [facility] | | | and [...] Team Providers + +------+ + | Care Microwave Engineer Name | Role | Phone | [...] | | KIDNEY TRANSPLANT | [address] | | | | | [address] [place] | [place] [address] | | | | | [address] | [phone] | | | | | [address] | | | | | | [phone] | | | +--------+ + + + [...]
--- OUTSIDE RECORDS SUMMARY | ~2018-08-13 | XMS | Clinical Summary ---
Demographics + + + | Address | [address] | | | [place] [address] | + + + | Home Phone [...] + + + | Author | [facility] | + + + | Organization | [facility] | + + [...] Providers + +------+ + | Care Safety Equipment Testing Specialist Name | Role | Phone [...] + + + Current Medications + + +---------+---------+------+------+-------+ | Prescription | Sig. | Disp. | Refills | Star | End | Statu | | | | | | t | Date | s | | | | | | Date | | | + + +---------+---------+------+------+-------+ | clopidogrel | Take 75 mg by [...] | | | | | + + +---------+---------+------+------+-------+ | sevelamer | Take 2 tablets by | 180 | 2 | 03/2 | 03/2 | Activ | | (RENVELA) 800 MG | mouth 3 (three) | tablet | | / | 8/20 | e | | tablet | times daily with | | | 19 | 20 | | | | meals. | | | | | | + + +---------+---------+------+------+-------+ | | Take 3 mLs by | | | | | Activ | | ipratropium-albutero | nebulization. | | | | | e | | l (DUO-NEB) 0.5-2.5 | | | | | | | | mg/3mL | | | | | | | + + +---------+---------+------+------+-------+ | valsartan (DIOVAN) | Take 1 tablet by | 30 | 11 | 04/1 | 04/1 | Activ | | 40 MG tablet | mouth daily. | tablet | | 1/20 | 0/20 | e | | | | | | 19 | 20 | | + + +---------+---------+------+------+-------+ | metoprolol | Take 1 tablet by | 30 | 2 | 05/2 | 05/2 | Activ | | (TOPROL-XL) 50 MG 24 | mouth daily. | tablet | | 1/20 | 0/20 | e | | hr tablet | | | | 19 | 20 | | + + +---------+---------+------+------+-------+ | predniSONE | Take 6 tablets by | 90 | 0 | 05/2 | | Activ | | (DELTASONE) 10 MG | mouth daily with | tablet | | 1/20 | | e | | tablet | breakfast. Take 6 | | | 19 | | | | | tablets x 6 days; | | | | | | | | followed by 5tabs x | | | | | | | | 5 days, 4 tabs x 4 | | | | | | | | days, 3 tabs x 3, 2 | | | | | | | | tabs x 2 and 1 tab x | | | | | | | | 1 day | | | | | | + + +---------+---------+------+------+-------+ | promethazine | Take 1 tablet by [...] | | | | | + + +---------+---------+------+------+-------+ | ondansetron | Take 8 mg by mouth | | | | 05/2 | Disco | | (ZOFRAN) 8 MG tablet | every 6 (six) hours | | | | 1/20 | ntinu | | | as needed for | | | | 19 | ed | | | Nausea. | | | | | | + + +---------+---------+------+------+-------+ | pantoprazole | Take 1 tablet by | 30 | 1 | 03/3 | 05/2 | Expir | | (PROTONIX) 40 MG | mouth every morning | tablet | | 0/20 | 9/20 | ed | | tablet | before breakfast for | | | 19 | 19 | | | | 60 days. | | | | | | + + +---------+---------+------+------+-------+ | promethazine | Take 25 mg by mouth | | | | 05/2 | Disco | | (PHENERGAN) 25 MG | every 6 (six) hours | | | | 1/20 | ntinu | | tablet | as needed for | | | | 19 | ed | | | Nausea. | | | | | | + + +---------+---------+------+------+-------+ | metoprolol | Take 2 tablets by | 60 | 11 | 04/2 | 05/2 | Disco | | (TOPROL-XL) 25 MG 24 | mouth daily. | tablet | | 5/20 | 1/20 | ntinu | | hr tablet | | | | 19 | 19 | ed | + + +---------+---------+------+------+-------+ | atorvastatin | Take 1 tablet by | 30 | 2 | 05/2 | 05/2 | Disco | | (LIPITOR) 40 MG | mouth nightly. | tablet | | 1/20 | 1/20 | ntinu | | tablet | | | | 19 | 19 | ed | + + +---------+---------+------+------+-------+ | cefdinir (OMNICEF) | Take 1 capsule by | 4 | 0 | 05/2 | 05/2 | Expir | | 300 MG | mouth every other | capsule | | / | 11/23 | ed | | capsuleIndications: | day for 8 days. | | | 19 | 19 | | | Sepsis of Unknown | | | | | | | | Etiology | | | | | | | + + +---------+---------+------+------+-------+ | ondansetron | Take 1 tablet by | 20 | 0 | 05/2 | 05/2 | Expir | | (ZOFRAN-ODT) 4 MG | mouth every 6 (six) | tablet | | 1/20 | 8/20 | ed | | disintegrating | hours as needed for | | | 19 | 19 | | | tablet | Nausea for up to 7 | | | | | | | | days. | | | | | | + + +---------+---------+------+------+-------+ Active Problems + + + | Problem | Noted Date | + + + | Pancytopenia (HCC) | 07/19/2018 | + + + | Chest pain | 07/19/2018 | + + + | Other ascites | 07/19/2018 | + + + | Troponin I above reference range | 07/19/2018 | + + + | Acute hypoxemic respiratory failure (HCC) | 07/18/2018 | + + + | Sepsis (HCC) | 07/18/2018 | + + + | Pleural effusion on right | 07/18/2018 | + + + | Chronic right-sided heart failure (HCC) | 07/18/2018 | + + + | Hypertension | 07/18/2018 | + + + | [...] disease | 05/17/2012 | + + + | Anemia in ESRD (end-stage renal disease) ([facility]) | | + + + Resolved Problems + + + + | Problem | Noted | Resolved | | | Date | Date | + + + + | Acute systolic CHF (congestive heart failure) ([facility]) | 05/29/19 | | | | 19 | 9 | + + + + | Chronic systolic heart failure (HCC) | 05/28/19 | | | | 19 | 9 | + + + + Encounters +--------+ + + + + | Date | Type | Specialty | Care Team | Description | +--------+ + + + + | 08/10/ | Documentati | | René Anguiano MD | Other (July | | 2018 | on Only | | | 2019-[facility] Provider | | | | | | Bety Rounding | | | | | | Note) | +--------+ + + + + | 08/01/ | Documentati | | Doris Alvarenga MA | Other ([facility] | | 2018 | on Only | | | ED Notes & Testing | | | | | | 07/18/2018) | +--------+ + + + + | 07/18/ | Hospital | | Matt Gabriel DO | Febrile illness | | 2019 - | Encounter | | Mary Mckay, | (Primary Dx); | | | | | Usha Del Castillo MD | Recurrent pleural | | | | | Sotero Reinoso, | effusion on right; | | 2018 | | | MD | Hypoxia; History of | | | | | | end stage renal | | | | | | disease; ESRD on | | | | | | hemodialysis ([facility]); | | | | | | Anemia in ESRD | | | | | | (end-stage renal | | | | | | disease) ([facility]); | | | | | | Moderate to severe | | | | | | pulmonary | | | | | | hypertension ([facility]); | | | | | | Chronic right-sided | | | | | | heart failure ([facility]); | | | | | | Pleural effusion on | | | | | | right | +--------+ + + + + +---+ + | | Discharge | | | Summaries | | | - Tanya, | | | MD Usha - | | | 07/24/2018 | | | 9:06 AM | | | PDT | | | Formatting | | | of this | | | note may be | | | different | | | from the | | | original.[facility] | [facility]: | | | Hospitalist | | | Discharge | | | SummaryDate | | | of | | | Admission: | | | | | | 07/18/2018Da | | | te of | | | Discharge: | | | | | | 07/24/2018Di | | | scharge | | | Physician: | | | Arwa Z | | | Tanya, | | | MDTreatment | | | Team: | | | Consulting | | | Physician: | | | Antonio | | | Arif, | | | MDAdmitting | | | Provider: | | | Kalavati | | | Paila, | | | MDDischarge | | | Diagnoses: | | | | | | Principal | | | Problem: | | | Sepsis | | | (HCC)Active | | | Problems: | | | ESRD on | | | hemodialysi | | | s (HCC) | | | SOB | | | (shortness | | | of breath) | | | Moderate | | | to severe | | | pulmonary | | | hypertensio | | | n (HCC) | | | Non-rheumat | | | ic mitral | | | regurgitati | | | on 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 | | | *Procedures | | | : * No | | | surgery | | | found | | | *Significan | | | t | | | Diagnostic | | | Studies: | | | Ct Chest | | | Without | | | ContrastAdd | | | endum Date: | | | 07/20/2018 | | | ADDENDUM | | | BEGINS | | | Clarificati | | | on of the | | | first line | | | of the | | | impression: | | | Large | | | RIGHT | | | pleural | | | effusion, | | | unchanged. | | | Associated | | | atelectasis | | | noted | | | involving | | | the right | | | lung. | | | Signed by: | | | Habbu, | | | M.D., Brian | | | Sign | | | Date/Time: | | | 07/20/2018 | | | 9:30 AM | | | ADDENDUM | | | ENDSResult | | | Date: | | | 07/20/2018La | | | rge left | | | pleural | | | effusion, | | | unchanged. | | | Associated | | | | | | atelectasis | | | noted | | | along the | | | right lung. | | | Mosaic | | | attenuation | | | of the | | | left lung | | | parenchyma, | | | uncertain | | | etiology. | | | Again, | | | differentia | | | l | | | considerati | | | ons for | | | this | | | finding are | | | broad, to | | | include | | | parenchymal | | | , vascular | | | or small | | | airway | | | obstructive | | | process. | | | Partially | | | visualized | | | at least | | | small | | | amount of | | | ascites. | | | Borderline | | | cardiomegal | | | y. Enlarged | | | | | | mediastinal | | | lymph | | | nodes, | | | unchanged. | | | Signed by: | | | Habbu, | | | M.D., Brian | | | Sign | | | Date/Time: | | | 07/19/2018 | | | 9:13 AMUs | | | ChestResult | | | Date: | | | 07/20/2018No | | | left | | | pleural | | | fluid is | | | seen. | | | Large right | | | pleural | | | effusion | | | was not | | | scanned. | | | This looks | | | easily | | | drainable | | | by | | | ultrasound | | | guidance. | | | Signed by: | | | Bustos, | | | M.D., Quang | | | Sign | | | Date/Time: | | | 07/20/2018 | | | 11:43 | | | AMX-ray | | | Chest 1 | | | ViewResult | | | Date: | | | 07/21/20181. | | | No | | | evidence of | | | | | | pneumothora | | | x post | | | thoracentes | | | is. 2. Mild | | | residual | | | atelectasis | | | seen along | | | the minor | | | fissure and | | | perihilar | | | region of | | | the right | | | lung. | | | Signed by: | | | Iuliano, | | | D.O., | | | Edward Sign | | | Date/Time: | | | 07/21/2018 | | | 11:25 | | | AMBRIEF | | | HISTORY OF | | | PRESENTATIO | | | N and | | | HOSPITAL | | | COURSE: | | | Dara | | | Magaly | | | Dani is | | | a 23 y.o. 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 | | | stent on | | | Plavix, | | | hypertensio | | | n, asthma, | | | chronic | | | combined | | | heart | | | failure, | | | severe | | | pulmonary | | | hypertensio | | | n, cor | | | pulmonale, | | | moderate | | | mitral | | | valve | | | regurgitati | | | on, severe | | | tricuspid | | | regurgitati | | | on and | | | other | | | chronic | | | comorbiditi | | | es who was | | | discharged | | | on 05/2018 | | | from [facility] | | | with | | | bilateral | | | pleural | | | effusions | | | and ascites | | | status | | | post | | | thoracentes | | | is | | | | | | 1.5 L | | | removed | | | | | | transudativ | | | e and 4 L | | | ascitic | | | fluid | | | removed | | | | | | who | | | presents to | | | [facility] ER | | | from | | | [place] | | | ER for | | | sepsis | | | likely | | | secondary | | | to | | | pulmonary | | | pathology. | | | The | | | patient was | | | admitted | | | to regular | | | medical | | | floor, | | | noted to | | | have fever | | | of T-max | | | 101 from | | | [facility]. | | | Patient | | | had | | | positive | | | respiratory | | | film array | | | | | | demonstrati | | | ng | | | parainfluen | | | za 3. | | | Blood | | | cultures | | | demonstrate | | | d no growth | | | to date. | | | The | | | patient had | | | a CT of | | | the chest | | | which | | | demonstrate | | | d large | | | left | | | pleural | | | effusion | | | | | | unchanged | | | with | | | associated | | | atelectasis | | | status | | | post | | | thoracentes | | | is which | | | demonstrate | | | d exudative | | | effusion | | | based on | | | protein | | | | | | presumed to | | | be | | | secondary | | | to | | | autoimmune | | | disease. | | | Body | | | fluid pH | | | 7.48. | | | MRSA by | | | PCR of the | | | nares was | | | negative. | | | Patient | | | continued | | | to | | | demonstrate | | | continued | | | clinical | | | improvement | | | and | | | broad-spect | | | rum | | | antibiotics | | | were down | | | titrated to | | | Rocephin | | | and the | | | patient was | | | observed | | | for 24 | | | hours with | | | continued | | | stability. | | | On the | | | day of | | | discharge | | | the patient | | | was alert | | | oriented | | | x4, | | | tolerating | | | p.o. diet | | | without | | | symptoms, | | | just | | | completed | | | hemodialysi | | | s, | | | clinically, | | | | | | hemodynamic | | | ally from a | | | laboratory | | | | | | perspective | | | stable for | | | discharge | | | with | | | outpatient | | | follow-up. | | | The | | | patient was | | | converted | | | to [employer]mn[employer] | | | to complete | | | a total of | | | 14 days of | | | antibiotic | | | therapy. | | | The | | | patient is | | | to | | | follow-up | | | with her | | | outpatient | | | primary | | | care | | | physician | | | within 1 to | | | 2 weeks | | | after | | | discharge | | | and to | | | follow-up | | | with | | | nephrologis | | | t and | | | cardiologis | | | t within 1 | | | to 2 weeks | | | after | | | discharge | | | or as | | | otherwise | | | stated by | | | consultants | | | "Patient | | | was | | | discharged | | | in stable | | | condition. | | | Addressed | | | all of | | | their | | | questions | | | and covered | | | with side | | | affects of | | | newly added | | | | | | medications | | | . 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 | | | (HCC) | | | | | | Hypertensio | | | n Past | | | Surgical | | | History | | | Procedure | | | Laterality | | | Date | | | ABDOMINAL | | | SURGERY | | | | | | AV | | | FISTULA | | | PLACEMENT | | | | | | AV | | | FISTULA | | | PLACEMENT | | | Left | | | 04/08/2014 | | | Procedure: | | | AV FISTULA; | | | Surgeon: | | | Rik Simon, | | | MD; | | | Location: | | | [facility] | | | OR; | | | Service: | | | Vascular; | | | Laterality: | | | Left; | | | cephalic | | | AV | | | FISTULA | | | REPAIR Left | | | 03/07/2014 | | | Procedure: | | | AV FISTULA | | | - GRAFT | | | REPAIR/REVI | | | JULIÁN; | | | Surgeon: | | | Rik Simon, | | | MD; | | | Location: | | | [facility] | | | OR; | | | Service: | | | Vascular; | | | Laterality: | | | Left; | | | DECLOT | | | GRAFT Left | | | 03/07/2014 | | | Procedure: | | | GRAFT - | | | DECLOT; | | | Surgeon: | | | Rik Simon, | | | MD; | | | Location: | | | [facility] | | | OR; | | | Service: | | | Vascular; | | | Laterality: | | | Left; | | | DIALYSIS | | | FISTULA | | | CREATION | | | N/A | | | 04/08/2014 | | | Procedure: | | | DIALYSIS | | | CATHETER - | | | INSERTION; | | | Surgeon: | | | Rik Simon, | | | MD; | | | Location: | | | [facility] | | | OR; | | | Service: | | | Vascular; | | | Laterality: | | | N/A; | | | tunneled | | | catheter | | | | | | LAPAROSCOPI | | | C | | | PERITONEAL | | | DIALYSIS | | | CATHETER | | | INSERTION | | | x2 | | | | | | LAPAROSCOPI | | | C | | | PERITONEAL | | | DIALYSIS | | | CATHETER | | | INSERTION | | | Right | | | 07/2013 | | | current | | | dialysis | | | access MWF | | | dialysis | | | RENAL | | | BIOPSY | | | RENAL | | | BIOPSY Left | | | 2004 | | | | | | SUPERFICIAL | | | IZATION OF | | | AV FISTULA | | | Left | | | 06/24/2014 | | | Procedure: | | | AV FISTULA | | | - | | | SUPERFICIAL | | | IZATION; | | | Surgeon: | | | Rik Simon, | | | MD; | | | Location: | | | [facility] | | | OR; | | | Service: | | | Vascular; | | | Laterality: | | | Left; | | | Allergies | | | Allergen | | | Reactions | | | | | | Fentanyl | | | Itching | | | Iodinated | | | Diagnostic | | | Agents | | | Itching | | | Pt c/o face | | | itching | | | during | | | fistulagram | | | | | | Morphine | | | Rash | | | Ritalin | | | [Methylphen | | | idate Hcl] | | | Other (See | | | Comments) | | | Patient | | | says skin | | | was | | | crawling | | | Tape | | | [Adhesive | | | Tape] Rash | | | Use silk | | | tape only | | | No | | | prescriptio | | | ns prior to | | | admission. | | | DISCHARGE | | | EXAMVital | | | Signs:BP | | | 121/70 (BP | | | Location: | | | Right upper | | | arm) | | | | Pulse 87 | | | | Temp 99.3 | | | F (37.4 | | | C) (Oral) | | | | Resp 16 | | | | Ht | | | 1.702 m (5' | | | 7") | Wt | | | 58.2 kg | | | (128 lb 4.9 | | | oz) | | | | SpO2 93% | | | | | | | Breastfeedi | | | ng? No | | | | BMI 20.10 | | | kg/m | | | General | | | appearance: | | | alert, | | | appears | | | stated age, | | | | | | cooperative | | | and no | | | distressHea | | | d: | | | Normocephal | | | ic, without | | | obvious | | | abnormality | | | , | | | atraumaticN | | | lindy: no | | | adenopathy, | | | no carotid | | | bruit, no | | | JVD, | | | supple, | | | symmetrical | | | , trachea | | | midline and | | | thyroid | | | not | | | enlarged, | | | symmetric, | | | no | | | tenderness/ | | | mass/nodule | | | sLungs: | | | diminished | | | breath | | | sounds | | | bibasilar | | | and | | | bilaterally | | | Heart: | | | regular | | | rate and | | | rhythm, S1, | | | S2 normal, | | | no murmur, | | | click, rub | | | or | | | gallopAbdom | | | en: soft, | | | non-tender; | | | bowel | | | sounds | | | normal; no | | | masses, no | | | | | | organomegal | | | yExtremitie | | | s: | | | extremities | | | normal, | | | atraumatic, | | | no | | | cyanosis or | | | | | | edemaPulses | | | : 2+ and | | | symmetricNe | | | urologic: | | | Grossly | | | normal AXO3 | | | non focal | | | DATACBC: | | | Lab Results | | | Component | | | Value Date | | | WBC 7.05 | | | 07/24/2018 | | | RBC 3.15 | | | (L) | | | 07/24/2018 | | | HGB 11.7 | | | 07/24/2018 | | | HCT 34.8 | | | 07/24/2018 | | | MCV 110.7 | | | (H) | | | 07/24/2018 | | | MCH 37.1 | | | (H) | | | 07/24/2018 | | | MCHC 33.5 | | | 07/24/2018 | | | RDW 61.7 | | | (H) | | | 07/24/2018 | | | PLT 175 | | | 07/24/2018 | | | MPV 9.1 | | | 07/24/2018 | | | DIFFTYPE | | | AUTOMATED | | | 07/23/2018 | | | CMP: Lab | | | Results | | | Component | | | Value Date | | | NA 140 | | | 07/24/2018 | | | K 4.4 | | | 07/24/2018 | | | CL 100 | | | 07/24/2018 | | | CO2 28 | | | 07/24/2018 | | | ANIONGAP | | | 16 | | | 07/24/2018 | | | GLUF 117 | | | (H) | | | 07/24/2018 | | | BUN 30 (H) | | | 07/24/2018 | | | | | | CREATININE | | | 5.48 (H) | | | 07/24/2018 | | | BCR 6 | | | 07/21/2018 | | | CA 10.2 | | | 07/24/2018 | | | PROT 7.2 | | | 07/21/2018 | | | ALB 4.2 | | | 07/24/2018 | | | GLOB 4.3 | | | 07/19/2018 | | | BILITOT | | | 1.1 | | | 07/21/2018 | | | ALP 154 | | | (H) | | | 07/21/2018 | | | AST 159 | | | (H) | | | 07/21/2018 | | | ALT 181 | | | (H) | | | 07/21/2018 | | | EGFR 10 | | | (L) | | | 07/24/2018 | | | Lab Results | | | Component | | | Value Date | | | CKTOTAL | | | 291 (H) | | | 05/26/2018 | | | CKMB 7.8 | | | (H) | | | 05/26/2018 | | | CKMBINDEX | | | 2.7 | | | 05/26/2018 | | | TROPONINI | | | 0.077 (H) | | | 07/19/2018 | | | Lab Results | | | Component | | | Value Date | | | PHOS 4.1 | | | 07/24/2018 | | | Results for | | | DANI, | | | DARA MAGALY | | | (MRN | | | [id number]) | | | as of | | | 07/24/2018 | | | 13:05 Ref. | | | Range | | | 07/21/2018 | | | 14:00 FLUID | | | TOTAL | | | PROTEIN | | | Latest | | | Units: g/dL | | | 4.2 FLUID | | | LDH Latest | | | Units: U/L | | | 148 FLUID | | | PH Unknown | | | 7.48 Fluid | | | culture | | | w/gram | | | stain | | | [[id number]] | | | Collected: | | | 07/21/18 | | | 1400 Order | | | Status: | | | Completed | | | Lab Status: | | | | | | Preliminary | | | result | | | Updated: | | | 07/24/18 | | | 0948 | | | Specimen: | | | Body Fluid | | | from | | | Thoracic | | | Fluid | | | Specimen | | | Description | | | THORACIC | | | FLUID GRAM | | | STAIN NO | | | CELLS OR | | | ORGANISMS | | | SEEN | | | CULTURE NO | | | GROWTH 3 | | | DAYS Fluid | | | total | | | protein | | | (Body | | | fluid) | | | [[id number]] | | | Collected: | | | 07/21/18 | | | 1400 Order | | | Status: | | | Completed | | | Lab Status: | | | Final | | | result | | | Updated: | | | 07/21/18 | | | 1650 | | | Specimen: | | | Body Fluid | | | from | | | Thoracentes | | | is Fluid | | | FLUID TOTAL | | | PROTEIN | | | 4.2 g/dL | | | Comment: | | | This is not | | | a | | | manufacture | | | r validated | | | sample | | | type for | | | this | | | method. No | | | reference | | | ranges have | | | been | | | established | | | . Testing | | | performed | | | at [facility], | | | [address] | [address], | | | [place], | | | [place] [address] | | | FLUID TP | | | SOURCE | | | THORACENTES | | | IS | | | Comment: | | | Testing | | | performed | | | at [facility] | | | [place] [address] | | | Lactate | | | dehydrogena | | | se, body | | | fluid | | | [[id number]] | | | Collected: | | | 07/21/18 | | | 1400 Order | | | Status: | | | Completed | | | Lab Status: | | | Final | | | result | | | Updated: | | | 07/21/18 | | | 1650 | | | Specimen: | | | Body Fluid | | | from | | | Thoracentes | | | is Fluid | | | FLUID LDH | | | 148 U/L | | | Comment: | | | This is not | | | a | | | manufacture | | | r validated | | | sample | | | type for | | | this | | | method. No | | | reference | | | ranges have | | | been | | | established | | | . Testing | | | performed | | | at [facility], | | | [address], | | | [place], | | | [place] [address] | | | pH, body | | | fluid | | | [[id number]] | | | Collected: | | | 18 | | | 1400 Order | | | Status: | | | Completed | | | Lab Status: | | | Final | | | result | | | Updated: | | | 07/21/18 | | | 1426 | | | Specimen: | | | Body Fluid | | | from | | | Thoracentes | | | is Fluid | | | FLUID PH | | | 7.48 | | | Comment: | | | Testing | | | performed | | | at [id number];[place] | | | [place] [address] | | | Blood | | | Culture Set | | | 1 | | | [[id number]] | | | Collected: | | | 07/19/18 | | | 0853 Order | | | Status: | | | Completed | | | Lab Status: | | | | | | Preliminary | | | result | | | Updated: | | | 07/21/18 | | | 0600 | | | Specimen: | | | Blood from | | | Blood, | | | peripheral | | | draw | | | Specimen | | | Description | | | BLOOD, | | | PERIPHERAL | | | DRAW | | | SPECIAL | | | REQUESTS | | | RIGHT AC | | | CULTURE NO | | | GROWTH 2 | | | DAYS Blood | | | Culture Set | | | 2 | | | [[id number]] | | | Collected: | | | 07/19/18 | | | 0925 Order | | | Status: | | | Completed | | | Lab Status: | | | | | | Preliminary | | | result | | | Updated: | | | 07/21/18 | | | 0600 | | | Specimen: | | | Blood from | | | Blood, | | | peripheral | | | draw | | | Specimen | | | Description | | | BLOOD, | | | PERIPHERAL | | | DRAW | | | SPECIAL | | | REQUESTS RT | | | FOREARM | | | CULTURE NO | | | GROWTH 2 | | | DAYS | | | Respiratory | | | Filmarray | | | [[id number]] | | | (Abnormal) | | | Collected: | | | 07/19/18 | | | 0132 Order | | | Status: | | | Completed | | | Lab Status: | | | Final | | | result | | | Updated: | | | 07/19/18 | | | 0542 | | | Specimen: | | | Nasopharyng | | | eal Culture | | | | | | ADENOVIRUS | | | Not | | | Detected | | | CORONAVIRUS | | | 229E Not | | | Detected | | | CORONAVIRUS | | | HKU1 Not | | | Detected | | | CORONAVIRUS | | | NL63 Not | | | Detected | | | CORONAVIRUS | | | OC43 Not | | | Detected | | | HUMAN | | | METAPNEUMOV | | | IRUS Not | | | Detected | | | HUMAN | | | RHINO/ENTER | | | O Not | | | Detected | | | INFLUENZA A | | | Not | | | Detected | | | INFLUENZA B | | | Not | | | Detected | | | PARAINFLUEN | | | ZA 1 Not | | | Detected | | | PARAINFLUEN | | | ZA 2 Not | | | Detected | | | PARAINFLUEN | | | ZA 3 | | | DETECTED | | | (A) | | | PARAINFLUEN | | | ZA 4 Not | | | Detected | | | RESP | | | SYNCYTIAL | | | VIRUS Not | | | Detected | | | BORDETELLA | | | PERTUSSIS | | | Not | | | Detected | | | CHLAMYDIAE | | | PNEUMONIAE | | | Not | | | Detected | | | MYCOPLASMA | | | PNEUMONIAE | | | Not | | | Detected | | | RESP PANEL | | | INTERP | | | Testing | | | performed | | | by | | | Molecular | | | Methodology | | | Comment: | | | Testing | | | performed | | | at [facility], | | | [address], | | | [place], | | | [place] [address] | | | MRSA by | | | PCR | | | [[id number]] | | | Collected: | | | 07/19/18 | | | 0134 Order | | | Status: | | | Completed | | | Lab Status: | | | Final | | | result | | | Updated: | | | 07/19/18 | | | 0304 | | | Specimen: | | | Nasal from | | | Nares(Nose) | | | SOURCE | | | NARES(NOSE) | | | MRSA PCR | | | NEGATIVE | | | Comment: | | | Testing | | | performed | | | at [facility];[address];[place] | | | [place] [address] | | | | | | Disposition | | | : | | | HomeConditi | | | on: | | | StableCode | | | Status: | | | Full | | | CodeDischar | | | ge | | | Instruction | | | sAmbulatory | | | referral | | | to | | | Pulmonology | | | Referral | | | Priority: | | | Routine | | | Referral | | | Type: | | | Consultatio | | | n Referral | | | Reason: | | | Specialty | | | Services | | | Required | | | Requested | | | Specialty: | | | Pulmonary | | | Disease | | | Number of | | | Visits | | | Requested: | | | 1 Diet | | | Renal | | | Activity as | | | Advised by | | | Physical | | | Therapy | | | Call MD | | | for: | | | Temperature | | | > 100.4 F | | | (38 C) | | | Call MD | | | for: | | | Persistant | | | Nausea and | | | Vomiting | | | Call MD | | | for: | | | Severe | | | Uncontrolle | | | d Pain Call | | | MD for: | | | Redness, | | | Tenderness, | | | or Signs | | | of | | | Infection | | | (Pain, | | | Swelling, | | | Redness, | | | Odor or | | | Green/Yello | | | w Discharge | | | Around | | | Incision | | | Site) Call | | | MD for: | | | Difficulty | | | Breathing, | | | Headache or | | | Visual | | | Disturbance | | | s Call MD | | | for: Hives | | | Call MD | | | for: | | | Persistant | | | Dizziness | | | or | | | Light-Heade | | | dness Call | | | MD for: | | | Extreme | | | Fatigue | | | Follow | | | up:Tien | | | Bharat, | | | [id number] | | [address], [place] | | | [address] | | | n [place] | | | [phone] | | [phone] | | | ule an | | | appointment | | | as soon as | | | possible | | | for a visit | | | in [facility] | | | [facility] | | | NE[facility]ROLOG[facility] | | | [address] | [address] | | | [place] | | | [place] | | | [place] | | | [phone] | | | [address] | | | Schedule an | | | | | | appointment | | | as soon as | | | possible | | | for a visit | | | in 1 | | | [facility] | | | PULMONOLOGY | | | [address] | | | [place] | | | [facility] | | | [place] | | | [phone] | | | [address] | | | Schedule an | | | | | | appointment | | | as soon as | | | possible | | | for a visit | | | in 1 week | | | Medication | | | List START | | | taking | | | these | | | medications | | | cefdinir | | | 300 MG | | | capsuleQTY: | | | 4 | | | capsuleRefi | | | lls: | | | 0Commonly | | | known as: | | | OMNICEFTake | | | 1 capsule | | | by mouth | | | every other | | | day for 8 | | | days. | | | ondansetron | | | 4 MG | | | disintegrat | | | ing | | | tabletQTY: | | | 20 | | | tabletRefil | | | ls: | | | 0Commonly | | | known as: | | | ZOFRAN-ODTT | | | carlos 1 | | | tablet by | | | mouth every | | | 6 (six) | | | hours as | | | needed for | | | Nausea for | | | up to 7 | | | days. | | | predniSONE | | | 10 MG | | | tabletQTY: | | | 90 | | | tabletRefil | | | ls: | | | 0Commonly | | | known as: | | | DELTASONETa | | | ke 6 | | | tablets by | | | mouth daily | | | with | | | breakfast. | | | Take 6 | | | tablets x 6 | | | days; | | | followed by | | | 5tabs x 5 | | | days, 4 | | | tabs x 4 | | | days, 3 | | | tabs x 3, 2 | | | tabs x 2 | | | and 1 tab x | | | 1 day | | | CHANGE how | | | you take | | | these | | | medications | | | | | | metoprolol | | | 50 MG 24 hr | | | tabletQTY: | | | 30 | | | tabletRefil | | | ls: | | | 2Commonly | | | known as: | | | TOPROL-XLTa | | | ke 1 tablet | | | by mouth | | | daily.What | | | changed: | | | medication | | | strength | | | promethazin | | | e 25 MG | | | tabletQTY: | | | 30 | | | tabletRefil | | | ls: | | | 0Commonly | | | known as: | | | PHENERGANTa | | | ke 1 tablet | | | by mouth | | | every 6 | | | (six) hours | | | as needed | | | for Nausea | | | or Vomiting | | | | | | (non-respos | | | eboni to | | | zofran).Wha | | | t changed: | | | reasons to | | | take this | | | CONTINUE | | | taking | | | these | | | medications | | | | | | clopidogrel | | | 75 MG | | | tabletRefil | | | ls: | | | 0Commonly | | | known as: | | | PLAVIX | | | ipratropium | | | -albuterol | | | 0.5-2.5 | | | mg/3mLRefil | | | ls: | | | 0Commonly | | | known as: | | | DUO-NEB | | | pantoprazol | | | [...] | | for 60 | | | days. | | | sevelamer | | | [...] | | | meals. | | | valsartan | | | 40 MG | | | tabletQTY: | | | 30 | | | tabletRefil | | | ls: | | | 11Commonly | | | known as: | | | DIOVANTake | | | 1 tablet by | | | mouth | | | daily. You | | | might also | [...] medications | | | | | | ondansetron | | | 8 MG | | | tabletCommo | | | nly known | | | as: DONITA | | | Where to | | [...] | | | medications | | | cefdinir | | | 300 MG | | | capsule | | | metoprolol | | | 50 MG 24 hr | | | tablet | | | ondansetron | | | 4 MG | | | disintegrat | | | ing | | | tablet | | | predniSONE | | | 10 MG | | | tablet | | | promethazin | | | e 25 MG | | | tablet | | | Discharge | | | took over | | | 30 | | | minutes, to | | [...] | | s for | | | on-going | | | care, | | | follow-up | | | and | | | documentati | | | on of | | | discharge | | | summary.Laure | | | jessica Martínez, | | | MD07/24/2018 | +---+ + +--------+ +---+ + + | 07/04/ | Documentati | | Daniela Alejandre | [facility] | | 2018 | on Only | | ORIANA Castellanos | [facility] ) | +--------+ +---+ + + | 06/29/ | Refill | | Stephanie Goodrich | Medication Refill | | 2018 | | | ORIANA Obrien | | +--------+ +---+ + + | 06/28/ | Office | | Gretchen Teran | Acute on chronic | | 2018 | Visit | | KRISHNA Huertas | [...] | | | | (HCC) | +--------+ +---+ + + | 06/28/ | Documentati | | Doris Alvarenga MA | Labs Only ([facility] | | 2018 | on Only | | | Labs 06/20/2018) | +--------+ +---+ + + | 06/28/ | Documentati | | Doris Alvarenga MA | Other ([facility] | 2018 | on Only | | | ED & Testing | | | | | | 06/19/18) | +--------+ +---+ + + | 06/28/ | Documentati | | Doris Alvarenga MA | Other ([facility] | 2018 | on Only | | | ED & Testing | | | | | | 06/12/18) | +--------+ +---+ + + | 06/27/ | Documentati | | Romero Talamantes Only | 2018 | on Only | | ABRIL Martínez | | +--------+ +---+ + + | 06/26/ | Documentati | | Daniela Alejandre | [facility] ([facility] | | 2018 | on Only | | ORIANA Castellanos | [facility] - | | | | | | most recent labs .) | +--------+ +---+ + + | 06/25/ | Telephone | | Doris Alvarenga MA | | | 2019 | | | | | +--------+ +---+ + + | 06/14/ | Office | | Carolina Mahmood DO | Systolic heart | | 2018 | Visit | | | failure, unspecified | | | | | | HF chronicity ([facility]) | | | | | | (Primary Dx); | | | | | | Severe tricuspid | | | | | | regurgitation; | | | | | | Pulmonary HTN ([facility]); | | | | | | ESRD (end stage | | | | | | renal disease) ([facility]) | +--------+ +---+ + + | 06/12/ | Ancillary | | Tien Nicholson, | Dyspnea, unspecified | | 2018 | Procedure | | MD | type | +--------+ +---+ + + | 06/12/ | Telephone | | Carolina Mahmood DO | | | 2018 | | | | | +--------+ +---+ + + | 06/12/ | Ancillary | | Tien Nicholson, | Dyspnea, unspecified | | 2018 | Orders | | MD | type | +--------+ +---+ + + | 05/26/ | Hospital | | Aneudy Hunter, | Pleural effusion on | | 2018 - | Encounter | | Mayco Mabry MD | right (Primary Dx); | | | | | Javy Figueroa MD | Chest pain, | | | | | Darell Kowalski MD | unspecified type; | | 2018 | | | | Other ascites; Acute | | | | | | respiratory | | | | | | distress; End-stage | | | | | | renal disease on | | | | | | hemodialysis ([facility]); | | | | | | Hyperkalemia; [...] | | | failure) ([facility]); | | | | | | Hypoalbuminemia; | | | | | | Anemia in ESRD | | | | | | (end-stage renal | | | | | | disease) ([facility]); ESRD | | | | | | on hemodialysis | +--------+ +---+ + + +---+ + | | Discharge [...] | | Dara R | | | Dani | | | AGE/SEX: 23 | | | y.o. | | | female | | | MRN: | | | [id number] | | | OM: | | | [...] | | Darell U | | | Lfo , | | | MDConsults: | | [...] | | went to | | | [facility] | | | with | | | increasing | | | shortness | | | of breath | | | found to | | | have right | | | pleural | | | effusion | | | who was | | | transferred | | | to [facility] | | | Hospital | | [...] | | | 3 | | | 03/23/63357 | | | 4 CKTOTAL | | [...] | | Body Fluid | | | [[id number]] | | | Collected: | | | [...] | | Body Fluid | | | [[id number]] | | | Collected: | | | [...] | | | stain | | | [[id number]] | | | Collected: | | | [...] | | | fluid | | | [[id number]] | | | Collected: | | | [...] | | | fluid | | | [[id number]] | | | Collected: | | | [...] | | | Bharat, | | | [id number] | | [address], [place] | | | [address] | | | n [place] | | | [phone] | | | [phone] | | | weekLindsay | | | Mahmood, | | | [id number] | | | [address] | | | [address] | | | [place] | | | [place] | | | [phone] | | | [phone] 1 | | | weekJennife | | | r Ibarra, | | | [address] | | | [address] | | | [address] | | | [place] | | | [phone] | | | [phone] | | [...] | Blood Pressure | 121/70 | 07/24/2018 7:48 AM PDT | + + + + | Pulse | 87 | 07/24/2018 7:48 AM PDT | + + + + | Temperature | 37.4 C (99.3 F) | 07/24/2018 7:48 AM PDT | + + + + | Respiratory Rate | 16 | 07/24/2018 7:48 AM PDT | + + + + | Oxygen Saturation | 93% | 07/24/2018 7:48 AM PDT | + + + + | Inhaled Oxygen | - | - | | Concentration | | | + + + + | Weight | 58.2 kg (128 lb 4.9 | 07/23/2018 4:10 PM PDT | | | oz) | | + + + + | Height | 170.2 cm (5' 7") | 07/19/2018 1:08 AM PDT | + + + + | Body Mass Index | 20.1 | 07/23/2018 4:10 PM PDT | + + + + Plan of Treatment +--------+---------+ + + + | Date | Type | Specialty | Care Team | Description | +--------+---------+ + + + | 11/22/ | Office | | Denny Alexander | | | 2019 | Visit | | Deny Briggs MD [address] | [address] | | | | | | [place] [address] | | | | | | [phone] | | | | | | | [...] | Left: | SYNOVIS | | | [id number] | | 0.8x8cm - [id number]: | | Arm | | | | [...] | | | COVIDIEN | | | [id number] | | 23cmExplanted: Qty: 1 on | | | | | | [id number] / | | 04/08/2014 | | | | | | | | | | | | | | /[id number] | | | | | | | | 1X | + +------+------+ +--------+--------+--------+ Procedures + +--------+ + + + | Procedure Name | Priori | Date/Time | Associated Diagnosis | Comments | | | ty | | | | + +--------+ + + + | CBC W/NO DIFF | INOCENCIO | 07/24/2018 | | Results for this | | | | 6:04 AM | | procedure are in the | | | | PDT | | results section. | + +--------+ + + + | RENAL FUNCTION PANEL | INOCENCIO | 07/24/2018 | | Results for this | | | | 6:04 AM | | procedure are in the | | | | PDT | | results section. | + +--------+ + + + | RENAL FUNCTION PANEL | Routin | 07/23/2018 | | Results for this | | | e - AM | 5:32 AM | | procedure are in the | | | | PDT | | results section. | + +--------+ + + + | MAGNESIUM | Routin | 07/23/2018 | | Results for this | | | e - AM | 5:32 AM | | procedure are in the | | | | PDT | | results section. | + +--------+ + + + | CBC W/AUTO DIFF | INOCENCIO | 07/23/2018 | | Results for this | | (REFLEX TO MANUAL) | | 5:32 AM | | procedure are in the | | | | PDT | | results section. | + +--------+ + + + | FLUID CULT W/GRAM | Timed | 07/21/2018 | | Results for this | | STAIN | | 2:00 PM | | procedure [...] + + | FLUID TOTAL PROTEIN | Timed | 07/21/2018 | | Results for this | | (BODY FLUID) | | 2:00 PM | | procedure are in the | | | | PDT | | results section. | + +--------+ + + + | LACTATE | Add-On | 07/21/2018 | | Results for this | | DEHYDROGENASE | | 12:48 PM | | procedure are in the | | | | PDT | | results section. | + +--------+ + + + | HEPATIC FUNCTION | INOCENCIO | 07/21/2018 | | Results for this | | PANEL | | 12:48 PM | | procedure are in the | | | | PDT | | results section. | + +--------+ + + + | XR CHEST 1 VIEW | STAT | 07/21/2018 | | Results for this | | | | 11:03 AM | | procedure are in the | | | | PDT | | results section. | + +--------+ + + + | US THORACENTESIS | Routin | 07/21/2018 | | Results for this | | WITH IMAGING | e | 10:38 AM | | procedure are in the | | GUIDANCE | | PDT | | results section. | + +--------+ + + + | BASIC METABOLIC | Routin | 07/21/2018 | | Results for this | | PANEL | e - AM | 6:00 AM | | procedure are in the | | | | PDT | | results section. | + +--------+ + + + | CBC W/AUTO DIFF | Routin | 07/21/2018 | | Results for this | | (REFLEX TO MANUAL) | e - AM | 6:00 AM | | procedure are in the | | | | PDT | | results section. | + +--------+ + + + | POTASSIUM | INOCENCIO | 07/20/2018 | | Results for this | | | | 4:25 PM | | procedure are in the | | | | PDT | | results section. | + +--------+ + + + | HEMODIALYSIS | Routin | 07/20/2018 | | Results for this | | INPATIENT | e | 9:50 AM | | procedure are in the [...] + + | APTT | INOCENCIO | 07/20/2018 | | Results for this | | | | 6:25 AM | | procedure are in the | | | | PDT | | results section. | + +--------+ + + + | PROTIME-INR | INOCENCIO | 07/20/2018 | | Results for this | | | | 6:25 AM | | procedure are in the | | | | PDT | | results section. | + +--------+ + + + | CBC W/AUTO DIFF | INOCENCIO | 07/20/2018 | | Results for this | | (REFLEX TO MANUAL) | | 6:25 AM | | procedure are in the | | | | PDT | | results section. | + +--------+ + + + | RENAL FUNCTION PANEL | INOCENCIO | 07/20/2018 | | Results for this | | | | 6:25 AM | | procedure are in the | | | | PDT | | results section. | + +--------+ + + + | TROPONIN I | Timed | 07/19/2018 | | Results for this | | | | 11:48 AM | | procedure are in the | | | | PDT | | results section. | + +--------+ + + + | BLOOD CULTURE, SET 2 | Timed | 07/19/2018 | | Results for this | | | | 9:25 AM | | procedure are in the | | | | PDT | | results section. | + +--------+ + + + | BLOOD CULTURE, SET 1 | Timed | 07/19/2018 | | Results [...] + | TROPONIN I | Timed | 07/19/2018 | | Results for this | | | | 6:10 AM | | procedure are in the | | | | PDT | | results section. | + +--------+ + + + | COMPREHENSIVE | Routin | 07/19/2018 | | Results for this | | METABOLIC PANEL | e - AM | 6:10 AM | | procedure are in the | | | | PDT | | results section. | + +--------+ + + + | PHOSPHOROUS | Routin | 07/19/2018 | | Results for this | | | e - AM | 6:10 AM | | procedure are in the | | | | PDT | | results section. | + +--------+ + + + | MAGNESIUM | Routin | 07/19/2018 | | Results for this | | | e - AM | 6:10 AM | | procedure are in the | | | | PDT | | results section. | + +--------+ + + + | CBC W/AUTO DIFF | Routin | 07/19/2018 | | Results for this | | (REFLEX TO MANUAL) | e - AM | 6:10 AM | | procedure are in the | | | | PDT | | results section. | + +--------+ + + + | [facility] SEPTIC LACTIC | STAT | 07/19/2018 | | Results for this | | ACID | | 6:10 AM | | procedure are in the | | | | PDT | | results section. | + +--------+ + + + | MRSA BY PCR | Timed | 07/19/2018 | | Results for this | | | | 1:34 AM | | procedure are in the | | | | PDT | | results section. | + +--------+ + + + | RESPIRATORY | Timed | 07/19/2018 | | Results for this | | FILMARRAY | | 1:32 AM | | procedure are in the | | | | PDT | | results section. | + +--------+ + + + | [facility] SEPTIC LACTIC | STAT | 07/19/2018 | | Results for this | | ACID | | 12:38 AM | | procedure are in the | | | | PDT | | results section. | + +--------+ + + + | PROCALCITONIN | STAT | 07/19/2018 | | Results for this | | | | 12:35 AM | | procedure are in the | | | | PDT | | results section. | + +--------+ + + + | HCG, SERUM, | STAT | 07/19/2018 | | Results for this | | QUALITATIVE | | 12:35 AM | | procedure are in the | | | | PDT | | results section. | + +--------+ + + + | TROPONIN I | Add-On | 07/19/2018 | | Results for this | | | | 12:35 AM | | procedure are in the | | | | PDT | | results section. | + +--------+ + + + | ED INFORMATION | Routin | 07/18/2018 | | Results for this | | EXCHANGE | e | 10:47 PM | | procedure are in the [...] + from Last 3 Months Results CBC w/no Diff (07/24/2018 6:04 AM) + + + + + | Component | Value | Ref Range | Performed At | + + + + + | WBC | 7.05 | 3.80 - 11.00 K/uL | [email or web address] | + + + + + | RBC | 3.15 (L) | 3.70 - 5.10 M/uL | [facility] | + + + + + | HGB | 11.7 | 11.3 - 15.5 g/dL | [email or web address] | + + + + + | HCT | 34.8 | 34.0 - 46.0 % | [facility] | + + + + + | MCV | 110.7 (H) | 80.0 - 100.0 fl | [facility] | + + + + + | MCH | 37.1 (H) | 27.0 - 34.0 pg | [facility] | + + + + + | MCHC | 33.5 | 32.0 - 35.5 g/dL | [facility] | + + + + + | RDW SD | 61.7 (H) | 37 - 53 fl | [facility] | + + + + + | PLT | 175 | 150 - 400 K/uL | [facility] | + + + + + | MPV | 9.1Comment: Testing | fl | [facility] | | | performed at [facility];[address] | | | [address];[place] | | | | | [address] | | | + + + + + + + + + + | Performing | Address | City/State/Zipcode | Phone Number | | Organization | | | | + + + + + | [facility] | [address] | [place] [address] | | + + + + + Renal function panel (07/24/2018 6:04 AM)Only the most recent of 4 results within the time period is included. + + + + + | Component | Value | Ref Range | Performed At | + + + + + | SODIUM | 140 | 135 - 145 mmol/L | [facility] | + + + + + | POTASSIUM | 4.4 | 3.5 - 4.9 mmol/L | [facility] | + + + + + | CHLORIDE | 100 | 99 - 109 mmol/L | [facility] | + + + + + | CO2 | 28 | 23 - 32 mmol/L | [facility] | + + + + + | ANION GAP AGAP | 16 | 5 - 20 mmol/L | [facility] | + + + + + | GLUCOSE | 117 (H) | 65 - 99 mg/dL | [facility] | + + + + + | BUN | 30 (H) | 8 - 25 mg/dL | [facility] | + + + + + | CREATININE | 5.48 (H) | 0.50 - 1.00 mg/dL | [facility] | + + + + + | CALCIUM | 10.2 | 8.5 - 10.5 mg/dL | [facility] | + + + + + | Albumin | 4.2 | 3.6 - 5.0 g/dL | [facility] | + + + + + | PHOSPHORUS | 4.1 | 2.3 - 4.8 mg/dL | [facility] | + + + + + | EGFR | 10 (L)Comment: GFR <60: | >60 mL/min/1.73m2 | [facility] | | | CHRONIC KIDNEY [...] [place];[address] | | | | | [address];[place] | | | | | [address] | | | + + + + + + + | Specimen | + + | Blood | + + + + + + + | Performing | Address | City/State/Zipcode | Phone Number | | Organization | | | | + + + + + | [facility] | [address] | [place] [address] | | + + + + + CBC W/Auto Diff (Reflex to Manual) (07/23/2018 5:32 AM)Only the most recent of 10 results within the time period is included. + + + + + | Component | Value | Ref Range | Performed At | + + + + + | WBC | 3.39 (L) | 3.80 - 11.00 K/uL | [facility] | + + + + + | RBC | 3.21 (L) | 3.70 - 5.10 M/uL | [facility] | + + + + + | HGB | 11.5 | 11.3 - 15.5 g/dL | [facility] | + + + + + | HCT | 34.7 | 34.0 - 46.0 % | [facility] | + + + + + | MCV | 108.2 (H) | 80.0 - 100.0 fl | [facility] | + + + + + | MCH | 35.9 (H) | 27.0 - 34.0 pg | [facility] | + + + + + | MCHC | 33.2 | 32.0 - 35.5 g/dL | [facility] | + + + + + | RDW SD | 61.7 (H) | 37 - 53 fl | [facility] | + + + + + | PLT | 153 | 150 - 400 K/uL | [facility] | + + + + + | MPV | 9.4 | fl | [facility] | + + + + + | DIFF TYPE | AUTOMATED | | [facility] | + + + + + | NEUTROPHILS | 89.68 | % | [facility] | + + + + + | LYMPHOCYTES | 8.19 | % | [facility] | + + + + + | MONOCYTES | 1.61 | % | [facility] | + + + + + | EOSINOPHILS | 0.19 | % | [facility] | + + + + + | BASOPHILS | 0.33 | % | [facility] | + + + + + | NEUTROPHILS ABS | 3.04 | 1.90 - 7.40 K/uL | [facility] | + + + + + | LYMPHOCYTES ABS | 0.28 (L) | 1.00 - 3.90 K/uL | [facility] | + + + + + | MONOCYTES ABS | 0.06 | 0.00 - 0.80 K/uL | [facility] | + + + + + | EOSINOPHILS ABS | 0.01 | 0.00 - 0.50 K/uL | [facility] | + + + + + | BASOPHILS ABS | 0.01 | 0.00 - 0.10 K/uL | [facility] | + + + + + | MORPHOLOGY | 1+ | | [facility] | | | Comment: | | | | | MACRO | | | | | NORMAL PLT MORPH | | | | | | | | + + + + + | Diff Comment | SLIDE SCANNED, AGREES | | [facility] | | | WITH AUTOMATED | | | | | RESULTS.Comment: Testing | | | | | performed at [facility] | | | | | [address] [facility];[place], [place] | | | | | [address] | | | + + + + + + + | Specimen | + + | Blood | + + + + + + + | Performing | Address | City/State/Zipcode | Phone Number | | Organization | | | | + + + + + | [facility] | [address] | [place] [address] | | + + + + + Magnesium (07/23/2018 5:32 AM)Only the most recent of 3 results within the time period is included. + + + + + | Component | Value | Ref Range | Performed At | + + + + + | MAGNESIUM | 2.6 (H)Comment: Testing | 1.7 - 2.4 mg/dL | [facility] | | | performed at [facility], [facility] [address] | | LABORATORY | | | [facility], | | | | | [place] [address] | | | + + + + + + + | Specimen | + + | Blood | + + + + + + + | Performing | Address | City/State/Zipcode | Phone Number | | Organization | | | | + + + + + | [facility] | [address] | [place] [address] | [phone] | | LABORATORY | [address] | | | + + + + + Fluid culture w/gram stain (07/21/2018 2:00 PM)Only the most recent of 3 results within e time period is included. + + + + + | Component | Value | Ref Range | Performed At | + + + + + | Specimen Description | THORACIC FLUID | | [facility] | | | | | LABORATORY | + + + + + | GRAM STAIN | NO CELLS OR ORGANISMS | | [facility] | | | SEEN | | LABORATORY | + + + + + | CULTURE | NO GROWTH 4 DAYS | | [facility] | | | | | LABORATORY | + + + + + + + | Specimen | + + | Body Fluid - | | Thoracic Fluid | + + + + + + + | Performing | Address | City/State/Zipcode | Phone Number | | Organization | | | | + + + + + | [facility] | [address] | [place] [address] | [phone] | | LABORATORY | [address] | | | + + + + + Fluid total protein (Body fluid) (07/21/2018 2:00 PM)Only the most recent of 2 results wit dalila the time period is included. + + + + + | Component | Value | Ref Range | Performed At | + + + + + | FLUID TOTAL PROTEIN | 4.2Comment: This is not | g/dL | [facility] | | | a pressure tester validated | | LABORATORY | | | sample type for this | | | | | method. No reference | | | | | ranges have been | | | | | established.Testing | | | | | performed at [facility], [facility] [address] | | | | | [address], | | | | | [place] [address] | | | + + + + + | FLUID TP SOURCE | THORACENTESISComment: | | [facility] | | | Testing performed at | | | | | [facility];[address] [facility] | | | | | [place] [address] | | | + + + + + + + | Specimen | + + | Body Fluid - | | Thoracentesis Fluid | + + + + + + + | Performing | Address | City/State/Zipcode | Phone Number | | Organization | | | | + + + + + | [facility] | [address] | [place] [address] | | + + + + + | [facility] | [address] [facility] | [place] [address] | [phone] | | LABORATORY | [address]vd[address] | | | + + + + + Lactate dehydrogenase, body fluid (07/21/2018 2:00 PM)Only the most recent of 2 results wi thin the time period is included. + + + + + | Component | Value | Ref Range | Performed At | + + + + + | FLUID LDH | 148Comment: This is not | U/L | [facility] | | | a pressure tester validated | | LABORATORY | | | sample type for this | | | | | method. No reference | | | | | ranges have been | | | | | established.Testing | | | | | performed at [facility], [address] | | | | [facility], | | | | | [place] [address] | | | + + + + + + + | Specimen | + + | Body Fluid - | | Thoracentesis Fluid | + + + + + + + | Performing | Address | City/State/Zipcode | Phone Number | | Organization | | | | + + + + + | [facility] | [address] | [place] [address] | [phone] | | LABORATORY | [address]vd[address] | | | + + + + + pH, body fluid (07/21/2018 2:00 PM)Only the most recent of 2 results within the time perio d is included. + + + + + | Component | Value | Ref Range | Performed At | + + + + + | FLUID PH | 7.48Comment: Testing | | [facility] | | | performed at [facility];[address] | | | | | [address];[place] | | | | | [address] | | | + + + + + + + | Specimen | + + | Body Fluid - | | Thoracentesis Fluid | + + + + + + + | Performing | Address | City/State/Zipcode | Phone Number | | Organization | | | | + + + + + | [facility] | [address] | [place] [address] | | + + + + + Lactate dehydrogenase (07/21/2018 12:48 PM) + + + + + | Component | Value | Ref Range | Performed At | + + + + + | LDH | 351 (H)Comment: Testing | 120 - 246 U/L | [facility] | | | performed at [facility];[address] | | | | | [address];[place] | | | | | [address] | | | + + + + + + + | Specimen | + + | Blood | + + + + + + + | Performing | Address | City/State/Zipcode | Phone Number | | Organization | | | | + + + + + | [facility] | [address] | [facility] [place] [address] | | + + + + + Hepatic function panel (07/21/2018 12:48 PM) + + + + + | Component | Value | Ref Range | Performed At | + + + + + | TOTAL PROTEIN | 7.2 | 6.3 - 8.2 g/dL | [facility] | + + + + + | Albumin | 4.2 | 3.6 - 5.0 g/dL | [facility] | + + + + + | TBIL | 1.1 | 0.1 - 1.5 mg/dL | [facility] | + + + + + | BILI, DIRECT | 0.7 (H) | 0.0 - 0.3 mg/dL | [facility] | + + + + + | ALK PHOS | 154 (H) | 35 - 115 U/L | [facility] | + + + + + | AST | 159 (H) | 10 - 45 U/L | [facility] | + + + + + | ALT | 181 (H)Comment: Testing | 10 - 65 U/L | [facility] | | | performed at [facility];[address] | | | | | [address];[place] | | | | | [address] | | | + + + + + + + | Specimen | + + | Blood | + + + + + + + | Performing | Address | City/State/Zipcode | Phone Number | | Organization | | | | + + + + + | [facility] | [address] | [place] [address] | | + + + + + X-ray chest 1 view (07/21/2018 11:03 AM)Only the most recent of 3 results within the time griffin escobar is included. + + + | Impressions | Performed At | + + + | 1. No evidence of pneumothorax post thoracentesis. 2. Mild residual | [facility] | | atelectasis seen along the minor fissure and perihilar region of the | RADIOLOGY | | right lung. Signed by: Abbi Espinoza Edward Sign Date/Time: | | | 07/21/2018 11:25 AM | | + + + + + + | Narrative | Performed At | + + + | CHEST ONE VIEW CLINICAL INFORMATION: Post thoracentesis , removed | [facility] | | 1500 mL. COMPARISON: US CHEST (07/20/2018); CT CHEST WO CONTRAST | RADIOLOGY | | (07/19/2018); FINDINGS: Overlying EKG leads [...] + | Sonido Steele Results In - 07/21/2018 11:28 AM PDT CHEST ONE VIEW | | [...] Date/Time: 07/21/2018 11:25 AM | + + + + + + + | Performing | Address | City/State/Zipcode | Phone Number | | Organization | | | | + + + + + | [facility] | [address] | [place] [address] | | + + + + + US thoracentesis (includes imaging) (07/21/2018 10:38 AM)Only the most recent of 2 results within the time period is included. + + | Specimen | + + | Body Fluid | + + + + + | Narrative | Performed At | + + + | PROCEDURE Ultrasound-guided diagnostic and therapeutic right | [facility] | | thoracentesis. INDICATIONS Shortness of breath, dyspnea on | RADIOLOGY | | exertion. Patient with history of congestive heart failure and | | | end-stage renal disease. Recurrent pleural effusion. * * | | | ALLERGIES* * 1. FENTANYL 2. IODINATED DIAGNOSTIC AGENTS | | | 3. MORPHINE 4. RITALIN 5. TAPE PREPROCEDURE LABORATORY | | | DATA Labs performed: CBC indicates platelet count of 153,000, INR of | | | 1.6, and PTT of 28. DIAGNOSTIC IMAGING DATA [...] with arms on the | | | [id number] table. Ultrasound was utilized to tk an [...] skin tissues only. A large-bore thoracentesis needle | | | was guided through the skin tissues using aspiration [...] with no further drainage noted. A postprocedural | | | expiratory 1-view chest x-ray was ordered and reviewed by radiologist | | | Dr. Espinoza, and revealed no pneumothorax. The fluid was sent to | | | the lab for indicated testing. The patient tolerated the procedure | | | well and no post-procedural complications were encountered. | | | IMPRESSION 1. Successful ultrasound-guided diagnostic and therapeutic | | | right thoracentesis with removal of 1500 mL of hazy, dai pleural | | | fluid. 2. There were no immediate postprocedural complications and no | | | postprocedure pneumothorax. This report has been prepared with | | | a voice recognition system. The possibility of "sound alike" | | | trailhead maintenance worker errors, addition and/or deletions may occur. If there | | | is any question about this report please contact the author of the | | | report. | | | 11:53 AM | | + + + + + | Procedure Note | + + | Cedric, Rad Results In - 07/21/2018 11:58 AM PDT PROCEDUREUltrasound-guided diagnostic | | and therapeutic right thoracentesis.INDICATIONSShortness of breath, dyspnea on exertion. | | Patient with history of congestive heart failure and end-stage renal disease. Recurrent | | pleural effusion.* * ALLERGIES* * 1. FENTANYL2. IODINATED DIAGNOSTIC AGENTS3. | | MORPHINE4. RITALIN5. TAPEPREPROCEDURE LABORATORY DATALabs performed: CBC indicates | | platelet count of 153,000, INR of 1.6, and PTT of 28.DIAGNOSTIC IMAGING DATALimited | | ultrasound of chest performed on July 20, 2018, indicates large right pleural | | effusion.REFERRING PHYSICIANSotero Reinoso M.D.DESCRIPTION OF PROCEDUREI met this | | patient in Room 4464. The patient was awake, alert, and oriented x 3. We had a | | discussion about the procedure, the risks involved and the alternatives, the patient | | verbalized understanding of this, and their desire was to proceed with the procedure. | | Therefore, a written informed consent was obtained.A pre-procedural pause time-out was | | performed identifying the patient, the site, the orders, and all members of the team | | were in agreement.The patient was sitting at the bedside with arms on the ikmi-uuv-eld | | table. Ultrasound was utilized to tk an area in the right posterior ribcage with the | | largest pocket of pleural fluid underneath. After the area was marked a sterile prep was | | performed using chlorhexidine circular scrubs. Sterile drapes were malika and sterile | | technique was maintained throughout the procedure.Lidocaine 1% was infused through the | | [...] Dr. Espinoza, and revealed no | | pneumothorax.The fluid was sent to the lab for indicated testing.The patient tolerated | | the procedure well and no post-procedural complications were encountered.IMPRESSION1. | | Successful ultrasound-guided diagnostic and therapeutic right thoracentesis with removal | | of 1500 mL of hazy, dai pleural fluid.2. There were no immediate postprocedural | | complications and no postprocedure pneumothorax.This report has been prepared with a | | voice recognition system. The possibility of "sound alike" trailhead maintenance worker errors, | | addition and/or deletions may occur. If there is any question about this report please | | contact the author of the report.Electronically signed by KRISHNA Nice on | | 07/21/2018 11:53 AM | |The fluid was sent to the [...] system. The possibility of "sound a like" trailhead maintenance worker errors, addition and/or deletions may occur. If there is any question a bout this report please contact the author of the report. | | | | | + + + + + + + | Performing | Address | City/State/Zipcode | Phone Number | | Organization | | | | + + + + + | [facility] | [address] | [place] [address] | | + + + + + Basic metabolic panel (07/21/2018 6:00 AM)Only the most recent of 2 results within the is included. + + + + + | Component | Value | Ref Range | Performed At | + + + + + | SODIUM | 136 | 135 - 145 mmol/L | [facility] [...] + + + + | GLUCOSE | 87 | 65 - 99 mg/dL | [facility] | | | | | LABORATORY | + + + + + | BUN | 26 (H) | 8 - 25 mg/dL | [facility] | | | | | LABORATORY | + + + + + | CREATININE | 4.6 (H) | 0.50 - 1.00 mg/dL | [...] + + + + | EGFR | 12 (L)Comment: GFR <60: | >60 mL/min/1.73m2 | [...] the | | | | | MDRD IDNE traceable | | | | | equation.Testing | | | | | performed at [facility], [facility] [address] | | | | | [facility], | | | | | [place] [address] | | | + + + + + + + | Specimen | + + | Blood | + + + + + + + | Performing | Address | City/State/Zipcode | Phone Number | | Organization | | | | + + + + + | [facility] | [address] | [place] [address] | [phone] | | LABORATORY | [address] | | | + + + + + Potassium (07/20/2018 4:25 PM) + + + + + | Component | Value | Ref Range | Performed At | + + + + + | POTASSIUM | 3.8Comment: Testing | 3.5 - 4.9 mmol/L | [facility] | | | performed at [facility];[address] | | | | | [address];[place], [place] | | | | | [address] | | | + + + + + + + | Specimen | + + | Blood | + + + + + + + | Performing | Address | City/State/Zipcode | Phone Number | | Organization | | | | + + + + + | [facility] | [address] | [place] [address] | | + + + + + HEMODIALYSIS INPATIENT (07/20/2018 9:50 AM) + + + | Narrative | Performed At | + + + | Billie Gupta MD 07/20/2018 9:55 AM [facility] | | | [facility] Hemo-Dialysis Procedure note Pt is | | | seen on Dialysis. Indication for Dialysis: ESRD for Clearance and | | | UF Review of Systems: On dialysis, the patient Is resting | | | comfortably. Labs: Lab Results Component Value Date BUN 32 | | | (H) 07/20/2018 CREATININE 5.65 (H) 07/20/2018 EGFR 9 (L) | | | 07/20/2018 NA 138 07/20/2018 K 6.2 (H) 07/20/2018 CL 98 (L) | | | 07/20/2018 CO2 25 07/20/2018 CA 9.7 07/20/2018 PHOS 8.0 (H) | | | 07/20/2018 MG 2.6 (H) 07/19/2018 ALB 4.7 07/20/2018 WBC 6.36 | | | 07/20/2018 HGB 12.8 07/20/2018 PLT 157 07/20/2018 | | | Physical Exam Blood pressure 129/73, pulse 88, temperature 97.8 | | | F (36.6 C), temperature source Oral, resp. rate 20, height 1.702 | | | m (5' 7"), weight 64.9 kg (143 lb 1.3 oz), SpO2 100 %, not | | | currently . QB 400 AP -230 Changer Fixer 200 | | | Constitutional: pt appears without distress. Cardiovascular: | | | Normal rate. Exam reveals no gallop and no friction rub. | | | Pulmonary/Chest: Effort normal. No stridor. No respiratory distress. | | | Pt has no wheezes, no rales . Musculoskeletal: pt exhibits | | | no edema in lower extremities . Access; pt has left AVF. It has | | | good thrill and bruit A/P ESRD requiring HD: Hemodynamically | | | stable on HD; continue per submitted dialysis orders. No | | | dialysis-related complications identified during dialysis | | | treatment today. Modifications to orders: elliot Mora | | | MD Alonso 07/20/2018 | | + + + US chest (07/20/2018 9:05 AM) + + + | Impressions | Performed At | + + + | No left pleural fluid is seen. Large right pleural effusion was | [facility] | | not scanned. This looks easily drainable by ultrasound guidance. | RADIOLOGY | | Signed by: Eliza Bustos, Quang Sign Date/Time: 07/20/2018 11:43 AM | | + + + + + + | Narrative | Performed At | + + + | ULTRASOUND CHEST AND MEDIASTINUM CLINICAL INFORMATION: Left | [facility] | | Pleural effusion. End stage renal failure. COMPARISON: CT CHEST | RADIOLOGY | | WO CONTRAST (07/19/2018); X CHEST (07/18/2018); X [...] + | Cedric, Rad Results In - 07/20/2018 11:47 AM PDT ULTRASOUND CHEST AND MEDIASTINUM | | [...] Date/Time: 07/20/2018 11:43 AM | + + + + + + + | Performing | Address | City/State/Zipcode | Phone Number | | Organization | | | | + + + + + | [facility] | [address] | [place] [address] | | + + + + + aPTT (07/20/2018 6:25 AM)Only the most recent of 2 results within the time period is inclu ded. + + + + + | Component | Value | Ref Range | Performed At | + + + + + | APTT | 28Comment: Testing | 23 - 32 seconds | [facility] | | | performed at [facility];[address] | | | | | [address];[place] | | | | | [address] | | | + + + + + + + + + + | Performing | Address | City/State/Zipcode | Phone Number | | Organization | | | | + + + + + | [facility] | [address] | [place] [address] | | + + + + + Protime-INR (07/20/2018 6:25 AM)Only the most recent of 2 results within the time period i s included. + + + + + | Component | Value | Ref Range | Performed At | + + + + + | INR | 1.6Comment: REFERENCE | | [facility] | | | RANGE:0.9 - [...] at [facility];[address] | | | | | [address];[place], [place] | | | | | [address] | | | + + + + + + + + + + | Performing | Address | City/State/Zipcode | Phone Number | | Organization | | | | + + + + + | [facility] | [address] | [place] [address] | | + + + + + Troponin I (07/19/2018 11:48 AM)Only the most recent of 5 results within the time period is included. + + + + + | Component | Value | Ref Range | Performed At | + + + + + | TROPONIN I | 0.077 (H)Comment: 0.04 | 0.00 - 0.04 ng/mL | [facility] | | | ng/mL or [...] performed at | | | | | [facility];[address] [facility] | | | | | [facility];[place] [address] | | | + + + + + + + | Specimen | + + | Blood | + + + + + + + | Performing | Address | City/State/Zipcode | Phone Number | | Organization | | | | + + + + + | [facility] | [address] | [place] [address] | | + + + + + Blood Culture Set 2 (07/19/2018 9:25 AM) + + + + + | Component | Value | Ref Range | Performed At | + + + + + | Specimen Description | BLOOD, PERIPHERAL DRAW | | [facility] | | | | | LABORATORY | + + + + + | SPECIAL REQUESTS | RT FOREARM | | [facility] | + + + + + | CULTURE | NO GROWTH 6 DAYS | | [facility] | | | | | LABORATORY | + + + + + + + | Specimen | + + | Blood - Blood, | | peripheral draw | + + + + + + + | Performing | Address | City/State/Zipcode | Phone Number | | Organization | | | | + + + + + | [facility] | [address] | [place] [address] | [phone] | | LABORATORY | [address] | | | + + + + + | [facility] | [address] | [place] [address] | | + + + + + Blood Culture Set 1 (07/19/2018 8:53 AM) + + + + + | Component | Value | Ref Range | Performed At | + + + + + | Specimen Description | BLOOD, PERIPHERAL DRAW | | [facility] | | | | | LABORATORY | + + + + + | SPECIAL REQUESTS | RIGHT AC | | [facility] | + + + + + | CULTURE | NO GROWTH 6 DAYS | | [facility] | | | | | LABORATORY | + + + + + + + | Specimen | + + | Blood - Blood, | | peripheral draw | + + + + + + + | Performing | Address | City/State/Zipcode | Phone Number | | Organization | | | | + + + + + | [facility] | [address] [place] [address] | [place] [address] | [phone] | | LABORATORY | [address]vd[address] | | | + + + + + | [facility] | [address] | [place] [address] | | + + + + + CT chest without contrast (07/19/2018 8:51 AM)Only the most recent of 2 results within the time period is included. + + | Addenda | + + [...] left pleural effusion, unchanged. Associated atelectasis | [facility] | | noted along the right lung. Mosaic attenuation of the left lung | RADIOLOGY | | parenchyma, uncertain etiology. Again, differential [...] | CT CHEST WITHOUT CONTRAST CLINICAL INFORMATION: | [facility] | | Pneumonia. Hypoxia, Febrile illness, Recurrent pleural effusion on | RADIOLOGY | | right, History of end stage renal disease COMPARISON: CT CHEST WO | | | CONTRAST (05/26/2018); PROCEDURE: Axial images through the chest. | | | Multiplanar reconstructions. At least one of the following CT dose | | | optimization techniques were used: Automated exposure control; | | | Adjustment of mA and/or kV according to patient size; Use of | | | iterative reconstruction technique. FINDINGS: Lungs, Pleura and | | | Airways: Large right pleural effusion. Associated volume loss and | | | airspace disease involving the right mid to lower lung, likely | | | atelectasis. Mosaic attenuation of the lung parenchyma identified, | | | most prominent in the left lower lung. Resolution of the left | | | pleural effusion. Mediastinum: Borderline cardiomegaly. No | | | pericardial effusion seen. Aorta does not appear aneurysmal. Lymph | | | Nodes: Unchanged multiple enlarged mediastinal lymph nodes, for | | | example Prevascular lymph node on series 3, image 24 measuring 1.6 cm | | | x 1.1 cm. Upper Abdomen: At least small amount of ascites seen, | | | partially visualized. BODY WALL Soft Tissues: Mild anasarca. | | | Bones: No acute or destructive osseous process seen | | + + + + + | Procedure Note | + + | Cedric, Rad Results In 07/19/2018 9:[address] CHEST WITHOUT CONTRAST | | [...] Date/Time: 07/19/2018 9:13 AM | + + + + + + + | Performing | Address | City/State/Zipcode | Phone Number | | Organization | | | | + + + + + | [facility] | [address] | [place] [address] | | + + + + + Septic Lactic Acid (07/19/2018 6:10 AM)Only the most recent of 2 results within the time griffin escobar is included. + + + + + | Component | Value | Ref Range | Performed At | + + + + + | LACTIC ACID | 0.8Comment: INSTRUMENT | 0.4 - 2.0 mmol/L | [facility] | | | ERROR. NOTIFIED 4RP AT | | | | | 1230 BY TMBTesting | | | | | performed at [facility];[address] | | | | | [facility], [place] | | | | | [id number] ON 07/19 | | | | | AT 1233: PREVIOUSLY | | | | | REPORTED <0.1 | | | + + + + + + + + + + | Performing | Address | City/State/Zipcode | Phone Number | | Organization | | | | + + + + + | [facility] | [address] | [place] [address] | | + + + + + Phosphorus (07/19/2018 6:10 AM)Only the most recent of 2 results within the time period is included. + + + + + | Component | Value | Ref Range | Performed At | + + + + + | PHOSPHORUS | 6.3 (H)Comment: Testing | 2.3 - 4.8 mg/dL | [facility] | | | performed at [facility], [address] | | LABORATORY | | | [address], | | | | | [place] [address] | | | + + + + + + + | Specimen | + + | Blood | + + + + + + + | Performing | Address | City/State/Zipcode | Phone Number | | Organization | | | | + + + + + | [facility] | [address] | [place] [address] | [phone] | | LABORATORY | [address] | | | + + + + + Comprehensive Metabolic Panel (07/19/2018 6:10 AM)Only the most recent of 6 results within the time period is included. + + + + + | Component | Value | Ref Range | Performed At | + + + + + | SODIUM | 136 | 135 - 145 mmol/L | [facility] | | | | | LABORATORY | + + + + + | POTASSIUM | 5.6 (H) | 3.5 - 4.9 mmol/L | [facility] | | | | | LABORATORY | + + + + + | CHLORIDE | 98 (L) | 99 - 109 mmol/L | [facility] | | | | | LABORATORY | + + + + + | CO2 | 26 | 23 - 32 mmol/L | [facility] | | | | | LABORATORY | + + + + + | ANION GAP AGAP | 18 | 5 - 20 mmol/L | [facility] | | | | | LABORATORY | + + + + + | GLUCOSE | 87 | 65 - 99 mg/dL | [facility] | | | | | LABORATORY | + + + + + | BUN | 48 (H) | 8 - 25 mg/dL | [facility] | | | | | LABORATORY | + + + + + | CREATININE | 7.7 (H) | 0.50 - 1.00 mg/dL | [...] + + + | TOTAL PROTEIN | 7.9 | 6.3 - 8.2 g/dL | [facility] | | | | | LABORATORY | + + + + + | Albumin | 3.6 | 3.6 - 5.0 g/dL | [facility] | | | | | LABORATORY | + + + + + | GLOBULIN | 4.3 | 1.3 - 4.9 g/dL | [facility] | | | | | LABORATORY | + + + + + | A/G | 0.8 (L) | 1.0 - 2.4 | [facility] | | | | | LABORATORY | + + + + + | TBIL | 1.3 | 0.1 - 1.5 mg/dL | [facility] | | | | | LABORATORY | + + + + + | ALK PHOS | 170 (H) | 35 - 115 U/L | [facility] | | | | | LABORATORY | + + + + + | AST | 39 | 10 - 45 U/L | [facility] | | | | | LABORATORY | + + + + + | ALT | 54 | 10 - 65 U/L | [facility] [...] | | | | performed at [facility], [address] | | | | | [facility], | | | | | [place] [address] | | | + + + + + + + | Specimen | + + | Blood | + + + + + + + | Performing | Address | City/State/Zipcode | Phone Number | | Organization | | | | + + + + + | [facility] | [address] | [place] [address] | [phone] | | LABORATORY | [address] | | | + + + + + MRSA by PCR (07/19/2018 1:34 AM)Only the most recent of 2 results within the time period i s included. + + + + + | Component | Value | Ref Range | Performed At | + + + + + | SOURCE | NARES(NOSE) | | [facility] | + + + + + | MRSA PCR | NEGATIVEComment: Testing | NEGATIVE | [facility] | | | performed at [facility];[address] | | | | | [address];[place] | | | | | [address] | | | + + + + + + + | Specimen | + + | Nasal - Nares(Nose) | + + + + + + + | Performing | Address | City/State/Zipcode | Phone Number | | Organization | | | | + + + + + | [facility] | [address] | [place] [address] | | + + + + + Respiratory Filmarray (07/19/2018 1:32 AM)Only the most recent of 2 results within the period is included. + [...] + + + | PARAINFLUENZA 3 | DETECTED (A) | Not Detected | [facility] | | | | | LABORATORY | + + + + + | PARAINFLUENZA 4 | Not Detected | Not Detected | [facility] | | | | | LABORATORY | + + + + + | RESP SYNCYTIAL VIRUS | Not Detected | Not Detected | [...] INTERP | Testing performed by | | [facility] | | | Molecular | | LABORATORY | | | MethodologyComment: | | | | | Testing performed at | | | | | [facility], [address] | | | | | [place] | | | | | [address] | | | + + + + + + + | Specimen | + + | Nasopharyngeal | | Culture | + + + + + + + | Performing | Address | City/State/Zipcode | Phone Number | | Organization | | | | + + + + + | [facility] | [address] | [place] [address] | [phone] | | LABORATORY | [address] | | | + + + + + PROCALCITONIN (07/19/2018 12:35 AM)Only the most recent of 3 results within the time period is included. + + + + + | Component | Value | Ref Range | Performed At | + + + + + | PROCALCITONIN | 0.81 (H)Comment: | <0.5 ng/mL | [facility] | | | INTERPRETIVE | [...] performed | | | | | at [facility];[address] [facility] | | | | | [address] [address] | | | + + + + + + + + + + | Performing | Address | City/State/Zipcode | Phone Number | | Organization | | | | + + + + + | [facility] | [address] | [place] [address] | | + + + + + test, serum (07/19/2018 12:35 AM)Only the most recent of 2 results within the is included. + + + + + | Component | Value | Ref Range | Performed At | + + + + + | TEST,SERUM | NEGATIVEComment: Testing | NEGATIVE | [facility] | | | performed at [facility];[address] | | | | [address];[place], [place] | | | | | [address] | | | + + + + + + + + + + | Performing | Address | City/State/Zipcode | Phone Number | | Organization | | | | + + + + + | [facility] | [address] | [place] [address] | | + + + + + ED INFORMATION EXCHANGE (07/18/2018 10:47 PM)Only the most recent of 2 results within the period is included. + + + | Narrative | Performed At | + + + | [id number] [id number] Criteria Met Care | ED | | Guidelines in 2 in 2 Security and Safety No | INFORMATION | | recent Security Events currently on file ED Care Guidelines There | EXCHANGE | | are currently no ED Care Guidelines for this patient. Please check | | | your facility's medical records system. Care History | | | Medical/Surgical 05/28/18 12:00 AM [facility] | | | Patient is currently established with [facility]. If | | | patient is seen in the ED during business hours. Please contact CHWs | | | at [facility]. Care Recommendation: This patient has had 5 | | | or more Emergency Department visits in the last 12 months.Patient | | | requires education on the scope and purpose of the ED as an acute care | | | provider not a Primary Care Provider and should not be utilized for | | | chronic conditions. These are guidelines and the provider should | | | exercise clinical judgment when providing care. Prescription | | | Drug Report (12 Mo.) PDMP query found no report. E.D. Visit | | | Count (12 mo.) Facility Visits Low Acuity [facility] | | | Center [address] [facility] 10 0 Total 12 0 Note: Visits | | | indicate total known visits. Medicaid Low Acuity Dx are the number of | | | primary diagnoses on the Medicaid's Low Acuity dx list. | | | Recent Emergency Department Visit Summary Showing 10 most recent | | | visits out of 12 in the past 12 months Date Facility City State Type | | | Diagnoses or Chief Complaint July 18, 2018 [facility] | | | [place] Emergency Cough Pneumonia July 18, 2018 | | | [facility] [place] [facility] Chief Complaint: SINUS | | | CONGESTION/ FEVER Jun 19, 2018 [facility] [place] | | | Emergency Other chest pain End stage renal disease | | | Dependence on renal dialysis Personal history of nicotine | | | dependence Fluid overload, unspecified Heart failure, | | | unspecified [facility] (current) use of opiate analgesic | | | Allergy status to other drugs, medicaments and biological substances | | | status Radiographic dye allergy status Other penitentiary | | | (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 Jun 12, 2018 [facility] [place] [place] | | | Emergency Shortness of breath Fluid overload, | | | unspecified Hyperkalemia Radiographic dye allergy status | | | Allergy status to narcotic agent status Other penitentiary | | | (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 Allergy status to other drugs, | | | medicaments and biological substances status Jun 11, [address] [facility] [address] | | | 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 [place] [facility] | | | Shortness of breath Dyspnea, unspecified | | | Respiratory syncytial virus as the cause of diseases classified | | | elsewhere Allergy status to other drugs, medicaments and | | | biological substances status Radiographic dye allergy status | | | Other penitentiary (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 Allergy status to | | | narcotic agent status May 26, 2018 [facility] | | | Emergency Chest pain, unspecified Acute respiratory | | | distress Other ascites Pleural effusion, not elsewhere | | | classified May 26, 2018 [facility] [place] [place] | | | Emergency Allergy status to other drugs, medicaments and | | | biological substances status Other penitentiary (current) drug | | | therapy Radiographic dye allergy status Dependence on | | | renal dialysis Pleural effusion, not elsewhere classified | | | Allergy status to narcotic agent status Shortness of | | | breath May 25, 2018 [facility] [place] 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 | | | [place] Emergency Epistaxis Other termite technician | | | (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 End stage renal disease Allergy | | | status to narcotic agent status Dependence on renal dialysis | | | Allergy status to other drugs, medicaments and biological | | | substances status Radiographic dye allergy status | | | Hypertensive heart and chronic kidney disease without heart failure, | | | with stage 5 chronic kidney disease, or end stage renal disease | | | Recent Inpatient Visit Summary Date Facility City State Type | | | Diagnoses or Chief Complaint May 26, 2018 [facility] | | | [facility] Acute respiratory distress | | | Chest pain, unspecified Pleural effusion, not elsewhere | | | classified Other ascites Dependence on renal dialysis | | | Hyperkalemia Other disorders of phosphorus metabolism | | | End stage renal disease Other specified personal risk | | | factors, not elsewhere classified Acute systolic (congestive) | | | heart failure Care Providers Provider PRC Type Phone Fax | | | Service Dates TIEN NICHOLSON MD Hospitalist May 28, 2018 - | | | Current ReFlow Medical Portal This patient has registered at the | | | [facility] Emergency Department For more | | | information visit: | | | [email or web address] | | | [email or web address] andnbsp PLEASE NOTE: [...] | | completeness of information provided. 2019 [employer] | | | [place] - [email or web address] | | + + + + + | Procedure Note | + + | Interface, Lab - 07/18/2018 10:48 PM PDT Formatting of this note may be different | | from the original.[id number] [id number] Met Care Guidelines 10 in | | 12 2 in 2Security and SafetyNo recent Security Events currently on fileED Care | | GuidelinesThere are currently no ED Care Guidelines for this patient. Please check your | | facility's medical records system.Care HistoryMedical/Surgical05/28/18 12:00 AM [facility]. | | [facility] Patient is currently established with [facility]. If patient is | | seen in the ED during business hours. Please contact CHWs at [facility].Care | | Recommendation:This patient has had 5 or more Emergency Department visits in the last 12 | | months.Patient requires education on the scope and purpose of the ED as an acute care | | provider not a Primary Care Provider and should not be utilized for chronic | | conditions.These are guidelines and the provider should exercise clinical judgment when | | providing care.Prescription Drug Report (12 Mo.)PDMP query found no report.E.D. Visit | | Count (12 mo.)Facility Visits Low Acuity [facility] [address] | | [facility] 10 0 Total 12 0 Note: Visits indicate total known visits. Medicaid Low | | Acuity Dx are the number of primary diagnoses on the Medicaid's Low Acuity dx list. | | Recent Emergency Department Visit SummaryShowing 10 most recent visits out of 12 in the | | past 12 monthsDate Facility City State Type Diagnoses or Chief Complaint July 18, 2018 | | [facility] [place] Emergency Cough Pneumonia July 18, [address] [facility] [address] | | [place] Emergency Chief Complaint: SINUS CONGESTION/ FEVER Jun 19, 2018 | | [facility] [place] Emergency Other chest pain End stage renal disease | | Dependence on renal dialysis Personal history of nicotine dependence Fluid | | overload, unspecified Heart failure, unspecified [facility] (current) use of opiate | | analgesic Allergy status to other drugs, medicaments and biological substances | | status Radiographic dye allergy status Other penitentiary (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 Jun | | 2018 [facility] [place] [place] Emergency Shortness of breath Fluid | | overload, unspecified Hyperkalemia Radiographic dye allergy status Allergy | | status to narcotic agent status Other penitentiary (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 Allergy | | status to other drugs, medicaments and biological substances status Jun 11, [address] | | 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 [place] 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 [place] [place] Emergency Allergy | | status to other drugs, medicaments and biological substances status Other termite technician | | (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 Radiographic dye allergy status Dependence on renal | | dialysis Pleural effusion, not elsewhere classified Allergy status to narcotic | | agent status Shortness of breath May 25, 2018 [facility] [place] [place] Emergency | | Dependence on renal dialysis Shortness of breath Allergy status to narcotic | | agent status Pneumonia, unspecified organism Other termite technician (current) drug | | therapy Radiographic dye allergy status Pleural effusion, not elsewhere classified | | Allergy status to other drugs, medicaments and biological substances status May 10, | | 2018 [facility] [place] [place] Emergency Epistaxis Other penitentiary (current) | | 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 End stage renal disease Allergy status to narcotic agent status | | Dependence on renal dialysis Allergy status to other drugs, medicaments and | | biological substances status Radiographic dye allergy status Hypertensive heart | | and chronic kidney disease without heart failure, with stage 5 chronic kidney disease, | | or end stage renal disease Recent Inpatient Visit SummaryDate Facility [facility] State Type | | Diagnoses or Chief Complaint May 26, 2018 [facility] | | Medicine Acute respiratory distress Chest pain, unspecified Pleural effusion, | | not elsewhere classified Other ascites Dependence on renal dialysis | | Hyperkalemia Other disorders of phosphorus metabolism End stage renal disease | | Other specified personal risk factors, not elsewhere classified Acute systolic | | (congestive) heart failure Care ProvidersProvider [facility] Type Phone Fax Service Dates | | TIEN NICHOLSON MD Hospitalist May 28, 2018 - Current ReFlow Medical PortalThis | | patient has registered at the [facility] Emergency Department For | | more information visit: | | [email or web address] | | PLEASE NOTE: 1. Any [...] or completeness of information | | provided.2019 [employer]. 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 [place] [place] Emergency | | Shortness of breath | | Dyspnea, unspecified | | Respiratory syncytial virus as the cause of diseases classified elsewhere | | Allergy status to other drugs, medicaments and biological substances status | | Radiographic dye allergy status | | Other penitentiary (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 | | Allergy status to narcotic agent status | | | |May 26, 2018 [facility] | | Chest pain, unspecified | | Acute respiratory distress | | Other ascites | | Pleural effusion, not elsewhere classified | | | |May 26, 2018 [facility] [place] [place] [facility] | | Allergy status to other drugs, medicaments and biological substances status | | Other termite technician (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 | | Radiographic dye allergy status | | Dependence on renal dialysis | | Pleural effusion, not elsewhere classified | | Allergy status to narcotic agent status | | Shortness of breath | | | |May 25, 2018 [facility] [place] [place] Emergency | | Dependence on renal dialysis | | Shortness of breath | | Allergy status to narcotic agent status | | Pneumonia, unspecified organism | | Other termite technician (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 | | Radiographic dye allergy status | | Pleural effusion, not elsewhere classified | | Allergy status to other drugs, medicaments and biological substances status | | | |May 10, 2018 [facility] [place] [place] Emergency | | Epistaxis | | Other termite technician (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 | | End stage renal disease | | Allergy status to narcotic agent status | | Dependence on renal dialysis | | Allergy status to other drugs, medicaments and biological substances status | | Radiographic dye allergy status | | Hypertensive heart and chronic kidney disease without heart failure, with stage 5 chroni c kidney disease, or end stage renal disease | | | | | | | |Recent Inpatient Visit Summary | |Date Facility City State Type Diagnoses or Chief Complaint | |May 26, 2018 [facility] | | Acute respiratory [...] | | | | | | |Care Providers | |Provider PRC Type Phone Fax Service Dates | |TIEN NICHOLSON MD Hospitalist May 28, 2018 - Current | | | |ReFlow Medical Portal | |This patient has registered at the [facility] Emergency Department | |For more information visit: [email or web address] [id number] | |andnbsp PLEASE NOTE: | | 1. [...] of information provided. | | | |2019 [employer]. - [email or web address] | + + + +---------+ + + | Performing | Address | City/State/Zipcode | Phone Number | | Organization | | | | + +---------+ + + | ED INFORMATION | | | | | EXCHANGE | | | | + +---------+ + + EKG STANDARD 12 LEAD (06/28/2018 12:17 PM)Only [...] + + + + | Calculated P Boswell | 45 | degrees | [facility] | + + + + + | Calculated R Boswell | -7 | degrees | [facility] | + + + + + | Calculated T Boswell | 104 | degrees | [facility] | + + + + + | Diagnosis | Please refer to | | [facility] | | | Providers office visit | | | | | note for Providers | | | | | Interpretation.Confirmed | | | | | by [facility] Cross Read Only, | | | | | [facility] Shantelle ([id number]), | | | | | legal editor Joey Phillips | | | | | ([id number]) on 06/28/2018 | | | | | 1:01:23 PM | | | + + + + + + + + + + | Performing | Address | City/State/Zipcode | Phone Number | | Organization | | | | + + + + + | [facility] | [address] | [place] [address] | | + + + + + [...] 1995 | [facility] | | Performing Physician: René Noonan [...] MV A Shahid: 0.39 m/s MV Dec [place]: 9.46 m/s2 | | | MV DecT: 106.01 ms MV E Shahid: 1.00 m/s MV E/A Ratio: | | | 2.54 E/E' Sept: 23.82 E' Lat: 0.08 m/s E' Sept: 0.04 | | | m/s RAP: 15 mmHg RV S': 0.11 m/s RVSP: 67.64 mmHg TR | | | maxP.64 mmHg TR Vmax: 3.61 m/s Chief Guard: | | | Authenticated by: René Noonan MD Report Date/Time: -- | | | [id number]:15:25 | | + + + + + | Procedure Note | + + | Sonido Steele Results In - 06/12/2018 4:15 PM PDT Patient Name: Anders LOUISE of | | : 1995Accession: [id number] Physician: René Noonan MD | | INDICATIONS [...] (A-L): 31.60 | | ml/m2LAAs A2C: 18.56 [id number] A-L A2C: 58.49 mlLAESV MOD A2C: 54.57 mlLALs A2C: | | 5.00 cmLAAs A4C: 17.96 wi8CPFEU A-L A4C: 52.99 mlLAESV MOD A4C: 44.93 mlLALs A4C: | | 5.18 cmLAESV(MOD BP): 49.83 mlRAAs: 18.33 sf7OICDP A-L: 57.01 mlRAESV MOD: | | 56.24 mlRALs: 5.02 cmTAPSE: 1.98 cmAV Env.Ti: 227.35 msAV maxP.22 mmHgAV | | meanP.25 mmHgAV Vmax: 1.59 m/[place] Vmean: 1.06 m/[place] VTI: 24.30 cmAVA Vmax: | | 2.68 cm2AVA (VTI): 2.73 qr2RMUU Vmax: 0.00 cm2/m2AVAI (VTI): 0.00 cm2/m2LVOT | | Env.Ti: 210.72 msLVOT maxP.99 mmHgLVOT meanP.87 mmHgLVSI Dopp: 37.17 | | ml/m2LVSV Dopp: 66.54 mlLVOT Vmax: 1.41 m/sLVOT Vmean: 1.03 m/sLVOT VTI: 21.88 | | cmMV A Shahid: 0.39 m/sMV Dec [place]: 9.46 m/s2MV DecT: 106.01 msMV E Shahid: 1.00 | | m/sMV E/A Ratio: 2.54 E/E' Sept: 23.82 E' Lat: 0.08 m/sE' Sept: 0.04 m/sRAP: | | 15 mmHgRV S': 0.11 m/sRVSP: 67.64 mmHgTR maxP.64 mmHgTR Vmax: 3.61 | | m/sSonographer: Authenticated by: René Noonan MDReport Date/Time: -- | | [id number]:15:25IMPRESSION:1. Overall left ventricular systolic function is | [...] A Shahid: 0.39 m/s | |MV Dec [place]: 9.46 m/s2 | |MV DecT: 106.01 ms | |MV E Shahid: 1.00 m/s | |MV E/A Ratio: 2.54 | |E/E' Sept: 23.82 | |E' Lat: 0.08 m/s | |E' Sept: 0.04 m/s | |RAP: 15 mmHg | |RV S': 0.11 m/s | |RVSP: 67.64 mmHg | |TR maxP.64 mmHg | |TR Vmax: 3.61 m/s | | | |Chief Guard: | |Authenticated by: René Noonan MD | |Report Date/Time: [id number]:15:25 | | | |IMPRESSION: | |1. Overall [...] | + + + + + | [facility] | [address] | [place] [address] | | + + + + + [...] | | systolic CHF (congestive heart failure) ([facility]) Transaminitis | | | The patient is [...] | | | antibiotic" for pneumonia at [facility] ED. Was throwing up & could not [...] Anguiano MD | | + + + Cholesterol, body fluid (05/29/2018 12:56 PM) + + + + + | Component | Value | Ref Range | Performed At | + + + + + | FLUID CHOLESTEROL | 56Comment: This is not a | mg/dL | [facility] | | | pressure tester validated | | LABORATORY | | | sample type for this | | | | | method. No reference | | | | | ranges have been | | | | | established.Testing | | | | | performed at [facility], [address] | | | | | [facility], | | | | | [place] [address] | | | + + + + + + + | Specimen | + + | Body Fluid - | | Pleural, Right | + + + + + + + | Performing | Address | City/State/Zipcode | Phone Number | | Organization | | | | + + + + + | [facility] | [address] | [place] [address] | [phone] | | LABORATORY | [address] | | [...] + + + + | [facility] | [address] | [place] [address] | [phone] | | LABORATORY | [address]vd[address] | | [...] + | [facility] | [address] | [place] [address] | | + + + + + [...] at | | | | | [facility], [address] | | | | | [place] | | | | | [address] | | | + + + + + + + | Specimen | + + | Blood | + + + + + + + | Performing | Address | City/State/Zipcode | Phone Number | | Organization | | | | + + + + + | [facility] | [address] | [place] [address] | [phone] | | LABORATORY | [address] | | [...] | | | | performed at [facility], [address] | | | | | [facility], | | | | | [place] [address] | | | + + + + + + + | Specimen | + + | Blood | + + + + + + + | Performing | Address | City/State/Zipcode | Phone Number | | Organization | | | | + + + + + | [facility] | [address] | [place] [address] | [phone] | | LABORATORY | [address] | | | + + + + + Sedimentation rate, automated (05/28/2018 9:23 AM) + + + + + | Component | Value | Ref Range | Performed At | + + + + + | ESR | 2Comment: Testing | 0 - 20 mm/Hr | [facility] | | | performed at [facility], [address] | | LABORATORY | | | [address] [facility], | | | | | [place] [address] | | | + + + + + + + | Specimen | + + | Blood | + + + + + + + | Performing | Address | City/State/Zipcode | Phone Number | | Organization | | | | + + + + + | [facility] | [address] [place] [address] | [place] [address] | [phone] | | LABORATORY | [address] | | | + + + + + C-reactive protein (05/28/2018 9:23 AM) + + + + + | Component | Value | Ref Range | Performed At | + + + + + | CRP | 5.1 (H)Comment: Testing | <0.5 mg/dL | [facility] | | | performed at [facility], [address] | | LABORATORY | | | [facility], | | | | | [place] [address] | | | + + + + + + + | Specimen | + + | Blood | + + + + + + + | Performing | Address | City/State/Zipcode | Phone Number | | Organization | | | | + + + + + | [facility] | [address] | [place] [address] | [phone] | | LABORATORY | [address] | | | + + + + + TSH (05/28/2018 9:23 AM) + + + + + | Component | Value | Ref Range | Performed At | + + + + + | TSH | 1.270Comment: Testing | 0.450 - 5.100 uIU/mL | [facility] | | | performed at [facility], [address] | | LABORATORY | | | [facility] [address], | | | | | [place] [address] | | | + + + + + + + | Specimen | + + | Blood | + + + + + + + | Performing | Address | City/State/Zipcode | Phone Number | | Organization | | | | + + + + + | [facility] | [address] | [place] [address] | [phone] | | LABORATORY | [address]vd[address] | | | + + + + + Pathology cytology - fluid (05/28/2018 8:00 AM) + + | Specimen | + + | Body Fluid | + + + + + | Narrative | Performed At | + + + | ORDERING PHYSICIAN: Aneudy Hunter MD PATIENT NAME: | [facility] | | DARA LOUISE GENDER: Alysia [...] PERFORMING LABORATORY: Technical preparation was performed by [facility] | | | [facility], [address] [facility] [place] [address] | | | (Fitter Hand: Matt Claudio D.O.; CLIA#: [id number]). | | | Professional interpretation was performed by [facility], | | | [address] [address] | | | (Fitter Hand: Daniel Larson M.D.; [facility]#: [id number]).6 | | | Diagnostician: Marie BROOKS ([facility]) Community Health Nurse Supervisor | | | Diagnostician: Anahy Da Silva [...] + + | [facility] | [address] | [place] [address] | [phone] | | LABORATORY | Blvd. | | [...] at | | | | | [facility], [address] | | | | | [place] | | | | | [address] | | | + + + + + + + + + + | Performing | Address | City/State/Zipcode | Phone Number | | Organization | | | | + + + + + | [facility] | [address] | [place] [address] | [phone] | | LABORATORY | [address]vd[address] | | | + + + + + Echo cardiac adult complete (05/27/2018 12:01 PM) + +---------+ + + | Component | Value | Ref Range | Performed At | + +---------+ + + | LV EF | 25 (LL) | 50 - 70 % | [facility] | | | | | RADIOLOGY | [...] valve is normal. 18. | | | Ttou-cg-rmqatfeq eccentric mitral regurgitation is present. 19. | [...] 1995 | [facility] | | Performing Physician: Robel De [...] valve is normal. 18. | | | Beci-zx-yfbgfwrx eccentric mitral regurgitation is present. 19. | [...] is | | | normal. Mitral Valve: Wpmi-mt-xknxoxel eccentric mitral | | | regurgitation is [...] TR Vmax: 2.74 m/s | | | Chief Guard: MOO Authenticated by: Robel Yusuf MD Report | | | Date/Time: 05-27-2018 13:59:57 | | + + + + + | Procedure Note | + + | Cedric, Rad Results In - 05/27/2018 2:00 PM PDT Patient Name: Anders LOUISE of | | : 1995Accession: [id number] Physician: Robel Yusuf | | MD INDICATIONS [...] aortic stenosis.17. The mitral valve is normal.18. Qtkk-cg-dqmiyjjt | | eccentric mitral regurgitation is present.19. [...] | | arch are normal.26. No mass jeujuenaoq79. No clot visualizedFINDINGS--------ECG rhythm: | | Sinus [...] The mitral valve is normal. Mitral Valve: Pjnz-qy-owofpbgy eccentric mitral | | regurgitation is present.Tricuspid [...] (A-L): 30.43 | | ml/m2LAAs A2C: 20.97 rd5OGWDA A-L A2C: 65.71 mlLALs A2C: 5.68 cmLAAs A4C: 19.94 | | xj5RHXNV A-L A4C: 60.20 mlLALs A4C: 5.60 cmTAPSE: 1.58 cmHR: 79.62 BPMAV maxPG: | | 6.06 mmHgAV meanP.71 mmHgAV Vmax: 1.23 m/[place] Vmean: 0.92 m/[place] VTI: 20.07 | | cmAVA Vmax: 1.74 cm2AVA (VTI): 1.93 qq3WJGE Vmax: 0.00 cm2/m2AVAI (VTI): 0.00 | | [...] The mitral valve is | | normal.18. Xalw-va-bgrpbhwh eccentric mitral regurgitation is present.19. Severe | [...] and aortic arch are normal.26. No mass qspcpesjow64. No clot visualized | |LVIDd: 4.99 cm [...] |TR Vmax: 2.74 m/s | | | |Chief Guard: MW | |Authenticated by: Robel Yusuf MD [...] The mitral valve is normal. | |18. Ewnu-bw-satculbh eccentric mitral regurgitation is present. | |19. [...] | + + + + + | [facility] | [address] | [place] [address] | | + + + + + [...] + | [facility] | [address] | [place] [address] | | + + + + + Brain natriuretic peptide (05/27/2018 4:25 AM)Only the most recent of 2 results within the time period is included. + + + + + | Component | Value | Ref Range | Performed At | + + + + + | BRAIN NATRIURETIC | 1,153.92 (H)Comment: | 0 - 100 pg/mL | [facility] | | PEPTIDE | Testing performed at | | | | | [facility];[address] | | | | | Blvd;[place] [address] | | | + + + + + + + | Specimen | + + | Blood | + + + + + + + | Performing | Address | City/State/Zipcode | Phone Number | | Organization | | | | + + + + + | [facility] | [address] | [facility] [place] [address] | | + + + + + Pathologist consult (05/26/2018 2:12 PM) + + + + + | Component | Value | Ref Range | Performed At | + + + + + | Pathologist Consult | Comment: Review of | | [facility] | | | pleural fluid [...] performed | | | | | at [facility];[address] | | | | [address];[place] [address] | | | + + + + + + + + + + | Performing | Address | City/State/Zipcode | Phone Number | | Organization | | | | + + + + + | [facility] | [address] | [place] [address] | | + + + + + Cell count, Body Fluid (05/26/2018 2:12 PM) + + + + + | Component | Value | Ref Range | Performed At | + + + + + | FLUID TYPE | PLEURAL FLUID | | [facility] | + + + + + | COLOR | DAI | | [facility] | + + + + + | APPEARANCE | CLOUDY | | [facility] | + + + + + | RBC'S | 3,000Comment: CORRECTED | /mm3 | [facility] | | | RESULTS CALLED TO | | | | | ELSA IN ED AT 1705 | | | | | BY LGJCORRECTED ON 05/26 | | | | | AT 1702: PREVIOUSLY | | | | | REPORTED <[id number] | | | + + + + + | TOTAL NUCLEATED | 253Comment: CORRECTED | /mm3 | [facility] | | CELLS | RESULTS [...] CELLS COUNTED | 100Comment: Testing | | [facility] | | | performed at [facility];[address] | | | [address];[place], [place] | | | | | [address] | | | + + + + + + + | Specimen | + + | Body Fluid - Lung, | | Right Lower Lobe | + + + + + + + | Performing | Address | City/State/Zipcode | Phone Number | | Organization | | | | + + + + + | [facility] | [address] | [place] [address] | | + + + + + Albumin, Body Fluid (05/26/2018 2:12 PM) + + + + + | Component | Value | Ref Range | Performed At | + + + + + | FLUID ALBUMIN | 2.3Comment: This is not | g/dL | [facility] | | | a pressure tester validated | | LABORATORY | | | sample type for this | | | | | method. No reference | | | | | ranges have been | | | | | established.Testing | | | | | performed at [facility], [address] | | | | [facility], | | | | | [place] [address] | | | + + + + + + + | Specimen | + + | Body Fluid - Lung, | | Right Lower Lobe | + + + + + + + | Performing | Address | City/State/Zipcode | Phone Number | | Organization | | | | + + + + + | [facility] | [address] | [place] [address] | [phone] | | LABORATORY | [address]vd[address] | | | + + + + + Cardiac Panel (05/26/2018 12:14 PM) + + + + + | Component | Value | Ref Range | Performed At | + + + + + | WBC | 5.73 | 3.80 - 11.00 K/uL | [facility] | + + + + + | RBC | 3.32 (L) | 3.70 - 5.10 M/uL | [facility] | + + + + + | HGB | 12.1 | 11.3 - 15.5 g/dL | [facility] | + + + + + | HCT | 36.1 | 34.0 - 46.0 % | [facility] | + + + + + | MCV | 108.7 (H) | 80.0 - 100.0 fl | [facility] | + + + + + | MCH | 36.3 (H) | 27.0 - 34.0 pg | [facility] | + + + + + | MCHC | 33.4 | 32.0 - 35.5 g/dL | [facility] | + + + + + | RDW SD | 59.9 (H) | 37 - 53 fl | [email or web address] | + + + + + | PLT | 151 | 150 - 400 K/uL | [email or web address] | + + + + + | MPV | 10.1 | fl | [email or web address] | + + + + + | DIFF TYPE | AUTOMATED | | [email or web address] | + + + + + [...] | MORPHOLOGY | 2+Comment: MACRO | | [facility] | + + + + + | Platelet Estimate | ADEQUATE | | [facility] | + + + + + | SODIUM | 140 | 135 - 145 mmol/L | [facility] | + + + + + | POTASSIUM | 4.6 | 3.5 - 4.9 mmol/L | [facility] | + + + + [...] 64 | 10 - 65 U/L | [facility] | + + + + + | EGFR | 6 (L)Comment: GFR <60: | >60 mL/min/1.73m2 | [facility] | | | CHRONIC KIDNEY [...] the | | | | | [facility] traceable | | | | | equation. | | | + + + + + | CPK | 291 (H) | 30 - 240 U/L | [facility] | + + + + + | INR | 1.6Comment: REFERENCE | | [facility] | | | RANGE:0.9 - [...] 29 | 23 - 32 seconds | [facility] | + + + + + | MMB | 7.8 (H) | 0.5 - 3.6 ng/mL | [facility] | + + + + + | CK-MB Index | 2.7Comment: CK INDEX | | [facility] | | | INTERPRETATION: | [...] [place];[address] | | | | [address];[place] | | | | | [address] | | | + + + + + + + + + + | Performing | Address | City/State/Zipcode | Phone Number | | Organization | | | | + + + + + | [facility] | [address] | [place] [address] | | + + + + + [...] space: 4th Puncture | | | method: Xhuf-ten-awnezi catheter Ultrasound guidance: yes | | | [...] perforation, infection and | | | pain [place] protocol: Imaging studies available: yes | | [...] | complications | | + + + from Last 3 Months Insurance + +--------+ +------+-------+ + | Payer | Benefi | Subscriber | Type | Phone | Address | | | t Plan | ID | | | | | | / | | | | | | | Group | | | | | + +--------+ +------+-------+ + | MEDICARE | MEDICA | [id number] | | | [address] | | | RE | | | | [place] [address] | | | IP-OP | | | | | + +--------+ +------+-------+ + | MEDICAID | EASTER | [id number] | | | [address] | | | N | | | | [place], [place] | | | [place] | | | | [address] | | | HEART SURGEON | | | | | + +--------+ [...] | [place] | | | [phone] | [phone] | + +--------+ +--------+ + +
--- OUTSIDE RECORDS SUMMARY | ~2018-08-13 | XMS | Encounter Summary ---
Demographics + + + | Address | [address] | | | [place] [address] [...] | | | | | [place] [address] | | + + + + + | Thania Mallory | ECON | [address] | | | | | [place] [address] | | + + + + + | Deidra Weldon | ECON | [address] | | | | | [place] | | | | | [address] | | + + + + + Care Team Providers + +------+ + | Care Hogshead Opener Name | Role | Phone | [...] 2012 | | Coordinators [address] | ABRIL [address] [facility] [address] | | | | | [address] [facility] | [facility] | | | | | Road [place], [place] | [place], [place] | | | | | [address] | [address] | | | | | [phone] | | | +--------+ + + + [...] Denise | | | | | | [place], [place] | | | | | | [address] | | | | | | [phone] | | | | | | | | +--------+ + + + + documented as of this encounter Visit Diagnoses Not on filedocumented in this encounter"
--- OUTSIDE RECORDS SUMMARY | ~2018-08-13 | XMS | Encounter Summary ---
Demographics + + + | Address | [address] | | | [place] [address] | + + + | Home Phone [...] | | | | | [place] [address] | | + + + + + | Thania Mallory | ECON | [address] | | | | | [place] [address] | | + + + + + | Deidra Weldon | ECON | [address] | | | | | [place] | | | | | [address] | | + + + + + Care Team Providers + +------+ + | Care Sub Assembly Team Worker Name | Role | Phone | [...] | | | | Keven | [place]as [place] | | | | | | [facility] | [facility] | | | | | | [address] | Mailcode: | | | | | | Keven [address] | [address] | | | | | | [place] | [place] | | | | | | [place] | [place], [place] | | | | | | [address] | [address] | | | | | | Phone: | Phone: | | | | | | [phone] | [phone] | | | | | | Fax: | | | | | | | [phone] | | +--------+--------+ + + + + Encounter Details +--------+---------+ + + + | Date | Type | Department | Care Team | Description | +--------+---------+ + + + | 08/17/ | Office | Specialty Clinics | Sudhakar Joy | Anemia of chronic | | 2016 | Visit | at [facility] [address] | MD Emanuel [address] | kidney failure, | | | | [facility] | [facility] | stage 5 (HCC) | | | | Mailcode: D[facility] | [place], [place] | (Primary Dx); HSP | | | | [place] | [address] | (Jada-Schmanueln | | | | [place], [place] | [phone] | purpura) nephritis | | | | [address] | | | | | | [phone] | | | +--------+---------+ + + + [...] 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 She has moved into a new [facility]. She has collected enough money to [...] [address] Mail code [facility] [place], [place] [address] documented in this encounter Plan of Treatment +--------+ + + + + | Date | Type | Specialty | Care Team | Description | +--------+ + + + + | 05/04/ | Hospital | Adult Acute Care | El Starr MD | | | 2022 | Encounter | | [address] | | | | | | [place], [place] | | | | | | [address] | | | | | | [phone] | | | | | | | [...]
--- OUTSIDE RECORDS SUMMARY | ~2018-08-13 | XMS | Encounter Summary ---
Demographics + + + | Address | [address] | | | [place] [address] | + + + | Home Phone [...] | | | | | [place] [address] | | + + + + + | Thania Mallory | ECON | [address] | | | | | [place] [address] | | + + + + + | Deidra Weldon | ECON | [address] | | | | | [place] | | | | | [address] | | + + + + + Care Team Providers + +------+ + | Care Oxygen Therapy Teacher Name | Role | Phone | [...] | | Coordinators [address] | [address] | Update | | | | [address] [facility] | [facility] | | | | | Road [place], [place] | [place], [place] | | | | | [address] | [address] | | | | | [phone] | [phone] | | | | | | | [...] Denise | | | | | | [place], [place] | | | | | | [address] | | | | | | [phone] | | | | | | | | +--------+ + + + + documented as of this encounter Visit Diagnoses Not on filedocumented in this encounter"
--- OUTSIDE RECORDS SUMMARY | ~2018-08-13 | XMS | Encounter Summary ---
Demographics + + + | Address | [address] | | | [place] [address] | + + + | Home Phone [...] | | | | | [place] [address] | | + + + + + | Thania Mallory | ECON | [address] | | | | | [place] [address] | | + + + + + | Deidra Weldon | ECON | [address] | | | | | [place] | | | | | [address] | | + + + + + Care Team Providers + +------+ + | Care Air Quality Specialist Name | Role | Phone | [...] | | [address] | [facility], | | | | | [facility] | [place] [address] | | | | | [place], [place] | [phone] | | | | | [address] | | | +--------+ + + + [...] Denise | | | | | | [place], [place] | | | | | | [address] | | | | | | [phone] | | | | | | | [...] [facility] - | [address] | [place] [address] | | | IMMUNOGENETICS/TRANS | [address] | | | | [facility] | | | | + + + + + documented in this encounter Visit Diagnoses Not on filedocumented in this encounter"
--- OUTSIDE RECORDS SUMMARY | ~2018-08-13 | XMS | Encounter Summary ---
Demographics + + + | Address | [address] | | | [place] [address] | + + + | Home Phone [...] | [facility] | | | and [place] | + + + | Organization | [facility] [...] Team Providers + +------+ + | Care Copyright Expert Name | Role | Phone | [...] | [address] [place] | [place] [address] | | | | | [address] [place] | [phone] | | | | | [address] | | | | | | [phone] | | | +--------+ + + + [...] this encounter Progress Elodia Velasquez - 06/13/2018 1254 PDTerror documented in this encounter Plan of Treatment Not on filedocumented as of this encounter Visit Diagnoses Not on filedocumented in this encounter"
--- OUTSIDE RECORDS SUMMARY | ~2018-08-13 | XMS | Clinical Summary ---
Demographics + + + | Address | [address] | | | [place] [address] | + + + | Home Phone [...] | [facility] | | | and [place] | + + + | Organization | [facility] | [...] Providers + +------+ + | Care Mine Motor Engineer Name | Role | Phone | [...] | | | | renal disease) ([facility]) | protocol | | [...] Active Kidney Transplant Waiting List at [facility]: | | 03/07/2014 | + [...] | | Treated by Dr. Joy, pediatric audiologist. | + + + +---+ | ESRD [...] | | but reclotted). Listed at [facility] for kidney transplant - status [...] Kidney Transplant | | 2018 | | Romero Mckeon MD | Pre-evaluation | +--------+ + + + + | 06/13/ | Telephone | | Meño Tran | Kidney Transplant | | 2018 | | | MD Linda | Pre-evaluation | | | | | | (Dara mayenm so I | | | | | [...] | | | | | one in [place]. I | | | | | | [...] +--------+ +---------+--------+ | MEDICARE | MEDICA | [id number] | 05/05/19 | [phone] | | Medica | | | RE | | 13-Pre | 5 | | re | | | PART A | | sent | | | | | | AND B | | | | | | + +--------+ +--------+ +---------+--------+ | [employer] | [employer] | [id number] | | [phone] | | Medica | [...] [place] | | | 2 (Home) | [address] | + +--------+ +--------+ + + | Cory [place] | Josh | Father | [birth year] | [address] | | | al/Fam | | 1970 | [phone] | TRAVERTINE INSTALLER [place] [address] | | | [place] | | | 9 (Home) | | + +--------+ +--------+ + + Advance Directives Patient has advance care planning documents, and code status on file. For more information, please contact:[facility] [place] [address] + + + + + | Code Status | Date | Date | Comments | | | Activated | Inactivated | | + + + + + | Full Code | 02/24/2014 | 02/24/2014 | | | | 11:17 | 14:29 | | + + + + +
--- OUTSIDE RECORDS SUMMARY | ~2018-08-13 | XMS | Encounter Summary ---
Demographics + + + | Address | [address] | | | [place] [address] | + + + | Home Phone [...] | | | | | [place] [address] | | + + + + + | Thania Mallory | ECON | [address] | | | | | [place] [address] | | + + + + + | Deidra Weldon | ECON | [address] | | | | | [place] | | | | | [address] | | + + + + + Care Team Providers + +------+ + | Care Radiation Therapy Technologist Name | Role | Phone | + +------+ + | Shahid Camargo MD | PCP | Unavailable | + +------+ + Encounter Details +--------+------+ + + + | Date | Type | Department | Care Team | Description | +--------+------+ + + + | 12/20/ | Lab | Lab Center at [facility] | | Allergic purpura- | | 2012 | | 7th Floor [address] | | MEDICARE [address]18 | | | | [address] | | (Primary Dx) | | | | Road [place], [place] | | | | | | [address] | | | | | | [phone] | | | +--------+------+ + + + [...] Denise | | | | | | [place], [place] | | | | | | [address] | | | | | | [phone] | | | | | | | [...] - | [address] | [place], [place] | | | IMMUNOGENETICS/TRANS | Suite [...] - | [address] | [place], [place] | | | IMMUNOGENETICS/TRANS | Suite [...] + + | [facility] - | [address] | [place] [address] | | | IMMUNOGENETICS/TRANS | [address] | | | | [facility] LABORATORY | | | | + + + + + LIT HLA-B LOW RES-KE (12/20/2012 10:02 AM PDT) + + | Specimen | + + | Blood - Blood | + + + + + + + | Performing | Address | City/ChurchPairing/Zipcode | Phone Number | | Organization | | | | + + + + + | [facility] - | [address] | [place] [address] | | | IMMUNOGENETICS/TRANS | [address] [...] + | [facility] - | [address] | [place] [address] | | | IMMUNOGENETICS/TRANS | [address] [...] + | [facility] - | [address] | [place], [place] | | | IMMUNOGENETICS/TRANS | Suite [...] - | [address] | [place], [place] | | | IMMUNOGENETICS/TRANS | Suite [...] [facility] - | [address] | [place] [address] | | | IMMUNOGENETICS/TRANS | [address] [...] [facility] - | [address], | [place] [address] | | | IMMUNOGENETICS/TRANS | [address] [...] + + + + | [facility] | [address] | [place] [address] | | | SERVICES, | LONG CHAHAL [...] [facility] | [address] | [place] [address] | | | SERVICES, | [address] [...] + + + + | [facility] | [address] | [place] [address] | | | SERVICES, CORE | PARK [...] UNIV | | | | Pippa [place], [facility] | | PTH - INTFC | | | | [address] | | | | | | [phone].aruplab. | | | | | | annalee, [...] [facility] | [address] | [place], [place] | | | UNIV PTH - INTFC | | [address] | | + + + + + [...] + | [facility] | [address] | [place] [address] | | | SERVICES, HOMERO | PARK [...] + + + + | [facility] | [address] | [place] [address] | | | SERVICES, CORE | PARK [...] + | [facility] | [address] | [place] [address] | | | [place] | | | [...] [facility] | [address] | [place] [address] | | | SERVICES, CORE | PARK [...] [facility] | [address] | [place] [address] | | | SERVICES, CORE | PARK [...] + + + + | [facility] | [address] | [place] [address] | | | SERVICES, CORE | PARK [...] - | | | | | | [facility] | | + + + + + + + + | Specimen | + + | Blood - Blood | + + + + + + + | Performing | Address | City/State/Zipcode | Phone Number | | Organization | | | | + + + + + | [facility] | [address] | [place] [address] | | | [place] | | | [...] | | | at: | | | http://www.cdc.gov/nchstp/tb/pubs/tbfactssheets/[email or web address].htm | | | Test performed by: [facility] | | | Public Health Lab [address] Jaciel[address] [place] [address] | | | | | + + [...] [facility] | [address] | [place] [address] | | | SERVICES, SPECIAL | PARK [...] gene at | DIAGNOSTIC | | nucleotide 51536. Please note that this assay only detects the | LABORATORIES | | [id number] point mutation and therefore a normal result [...] has been analyzed for the presence of [id number] | | | mutation in the prothrombin [...] | above. Heterozygotes for the common prothrombin R96945Y mutation | | | constitute approximately 2% of the normal white population (1,2). | | | References: 1.) Edwinat et al. Blood 88, 4650-0324 (1995). 2.) Ricardo | | | et al. Circulation 99, 999-1004 (1998). 3.) Al Montalvo, and | | | Press. Amer J Clin Path 155, 439-47 (2001). This test was | | | developed and its performance characteristics determined by the [facility] | | | [facility]. It has | | | not been cleared or approved by the Food and Drug | | | Administration. FDA approval is not required for clinical use of | | | this test, and therefore validation was done as required under the | | | requirements of the Clinical Laboratory Improvement Act of | | | 1988. The [facility] | | | Center is a fully licensed and/or accredited clinical laboratory under | | | CLIA, [facility], and the [facility]. Please note that our lab now [...] + + | [facility] | [address] | [place] [address] | | | DIAGNOSTIC | [address] [...] | [facility] | [address] | [place] [address] | | | SERVICES, CORE | LONG [...] + + + + | [facility] | [address] | [place] [address] | | | SERVICES, CORE | LONG [...] [facility] | [address] | [place] [address] | | | SERVICES, HOMERO | LONG [...] ranges for full anticoagulation: INR for | [facility] | | Venous Thromboembolism (2.0 - [...] | [facility] | [address] | [place] [address] | | | SERVICES, HOMERO | LONG [...] | | | | | IgM by MICAHEL 0.89 IV | | | | | [...] | | | | | | [place] [address] | | | | | | [phone].aruplab. | | | | | | Faisal [...] [facility] | [address] | [place], [place] | | | UNIV PTH - INTFC | | [address] | | + + + + + [...] | + + + + + | [facility] | [address] | [place] [address] | | | SERVICES, SPECIAL | PARK [...] + + + + | [facility] | [address] | [place] [address] | | | DIAGNOSTIC | [address] [...] + | [facility] - | [address] | [place] [address] | | | [place] | | | [...] + | [facility] - | [address] | [place] [address] | | | [place] | | | [...] + | [facility] - | [address] | [place] [address] | | | [place] | | | [...] - | [address] | [place] [address] | | | [place] | | | [...] less......Not | | | | | | Htisnndy53.0-21.9 | | | | | | U/mL.........Indetermina [...] available | | | | | | [email or web address]/eb | | | | | | vdx.Performed by [facility] | | | | | | [facility],[address] | | | | | | Rajendra, [facility] [address] | | | | | | [phone].Blackbird Holdingsuplab. | | | | | | Faisal [...] [facility] | [address] | [place], [place] | | | UNIV PTH - INTFC | | [address] | | + + + + + [...] + | [facility] - | [address] | [place] [address] | | | [place] | | | [...] [facility] | [address] | [place] [address] | | | SERVICES, CORE | LONG [...] by | | | | | | [facility],[address] | | | | | | [address]ipp[address] Sau[place], [facility],[place] | | | | | | [address] | | | | | | [phone].Esphion. | | | | | | annalee, [...] [facility] | [address] | [place], [place] | | | UNIV PTH - INTFC | | [address] | | + + + + + [...] | + + + + + | [facility] | [address] | [place] [address] | | | SERVICES, CORE | PARK [...] [facility] | [address] | [place] [address] | | | SERVICES, CORE | PARK [...] [facility] | [address] | [place] [address] | | | SERVICES, CORE | [address] | | | + + + + + documented in this encounter Visit Diagnoses + + | Diagnosis | + + | 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
--- OUTSIDE RECORDS SUMMARY | ~2018-08-13 | XMS | Encounter Summary ---
Demographics + + + | Address | [address] | | | [place] [address] | + + + | Home Phone [...] | | | | | [place] [address] | | + + + + + | Thania Mallory | ECON | [address] | | | | | [place] [address] | | + + + + + | Deidra Weldon | ECON | [address] | | | | | [place] | | | | | [address] | | + + + + + Care Team Providers + +------+ + | Care Electrical Unit Rebuilder Name | Role | Phone | + [...] Everywher | | | | [address] [facility] | [facility] [address] | Query) | | | | Road [place], [place] | [place], [place] | | | | | [address] | [address] | | | | | [phone] | [phone] | | | | | | | [...] [place] | | | | | | [address] | | | | | | [phone] | | | | | | | | +--------+ + + + + documented as of this encounter Visit Diagnoses Not on filedocumented in this encounter"
--- OUTSIDE RECORDS SUMMARY | ~2018-08-13 | XMS | Encounter Summary ---
Demographics + + + | Address | [address] | | | [place] [address] | + + + | Home Phone [...] | | | | | [place] [address] | | + + + + + | Thania Mallory | ECON | [address] | | | | | [place] [address] | | + + + + + | Deidra Weldon | ECON | [address] | | | | | [place] | | | | | [address] | | + + + + + Care Team Providers + +------+ + | Care Director Of Oncology Name | Role | Phone | + [...] | | [address] | [facility] | | | | | [place] [address] | [place] [address] | | | | | | [phone] | | | | | | | [...] from patient and her family Pharmacy Preferences: [id number] [address] [place] [address] Updated Outpatient Medications: Current Medication List Name [...] questions regarding this information contact pharmacy, pager #[phone] Thank you, Juan David Batres Pager [phone] signed by Juan David Batres PharmD at [...] | | | | | | [place], [place] | | | | | | [address] | | | | | | [phone] | | | | | | | | +--------+ + + + + documented as of this encounter Visit Diagnoses Not on filedocumented in this encounter"
--- OUTSIDE RECORDS SUMMARY | ~2018-08-13 | XMS | Encounter Summary ---
Demographics + + + | Address | [address] | | | [place] [address] | + + + | Home Phone [...] | | | | | [place] [address] | | + + + + + | Thania Mallory | ECON | [address] | | | | | [place] [address] | | + + + + + | Deidra Weldon | ECON | [address] | | | | | [place] | | | | | [address] | | + + + + + Care Team Providers + +------+ + | Care Client Project Coordinator Name | Role | Phone [...] | | Coordinators [address] | [address] [facility] | Update | | | | W [facility] | [facility] | | | | | Road [place], [place] | [place], [place] | | | | | [address] | [address] | | | | | [phone] | [phone] | | | | | | | [...] Denise | | | | | | [place], [place] | | | | | | [address] | | | | | | [phone] | | | | | | | | +--------+ + + + + documented as of this encounter Visit Diagnoses Not on filedocumented in this encounter"
--- OUTSIDE RECORDS SUMMARY | ~2018-08-13 | XMS | Encounter Summary ---
Demographics + + + | Address | [address] | | | [place] [address] | + + + | Home Phone [...] Author + + + | Author | [facility] | + + + | Organization | [facility] | + + + | Address | Unknown | + + + | Phone | Unavailable | + + + Support + + + + + | Name | Relationship | Address | Phone | + + + + + | Cory Weldon | ECON | [address] | | | | | [place] [address] | | + + + + + | Thania Mallory | ECON | [address] | | | | | [place] [address] | | + + + + + | Deidra Weldon | ECON | [address] | | | | | [place] | | | | | [address] | | + + + + + Care Team Providers + +------+ + | Care Glove Stitcher Name | Role | Phone | [...] | | | | | Alexander | [facility] | | | | | [facility] | [place], [place] | | | | | [facility] [facility] | [address] | | | | | [facility] | [phone] | | | | | Mailcode: DCH7 | | | | | | Alexander | | | | | | [place], [place] | | | | | | [address] | | | | | | [phone] | | | +--------+--------+ + + + [...] Denise | | | | | | [place], [place] | | | | | | [address] | | | | | | [phone] | | | | | | | | +--------+ + + + + documented as of this encounter Visit Diagnoses Not on filedocumented in this encounter"
--- OUTSIDE RECORDS SUMMARY | ~2018-08-13 | XMS | Encounter Summary ---
Demographics + + + | Address | [address] | | | [place] [address] | + + + | Home Phone [...] | | | | | [place] [address] | | + + + + + | Thania Mallory | ECON | [address] | | | | | [place] [address] | | + + + + + | Deidra Weldon | ECON | [address] | | | | | [place] | | | | | [address] | | + + + + + Care Team Providers + +------+ + | Care Computer Systems Architect Name | Role | Phone | [...] | | | | | [address] [facility] | [facility] | | | | | Road [place], [place] | [place], [place] | | | | | [address] | [address] | | | | | [phone] | | | +--------+ + + + [...] Denise | | | | | | [place], [place] | | | | | | [address] | | | | | | [phone] | | | | | | | | +--------+ + + + + documented as of this encounter Visit Diagnoses Not on filedocumented in this encounter"
--- OUTSIDE RECORDS SUMMARY | ~2018-08-13 | XMS | Encounter Summary ---
Demographics + + + | Address | [address] | | | [place] [address] | + + + | Home Phone [...] | Author | [facility] | | | and Josephana | + + + | Organization | [facility] | | | and [...] Team Providers + +------+ + | Care Turf Farmer Name | Role | Phone | [...] to | | | obtain one in [place]. I explained that we would have to [...] | | KIDNEY TRANSPLANT | [address], | ([facility] so I | | | | [address] [place] | [place] [address] | called her back to | | | | [address] [place], [place] | [phone] | complete intake | | | | [address] | | questionnaire. She | | | | [phone] | | currently ingests | | | [...] | | | | | one in [place]. I | | | | | | [...] she would have to obtain one in [place]. I explained that we would have to [...]
--- OUTSIDE RECORDS SUMMARY | ~2018-08-13 | XMS | Encounter Summary ---
Demographics + + + | Address | [address] | | | [place] [address] | + + + | Home Phone [...] | | | | | [place] [address] | | + + + + + | Thania Mallory | ECON | [address] | | | | | [place] [address] | | + + + + + | Deidra Weldon | ECON | [address] | | | | | [place] | | | | | [address] | | + + + + + Care Team Providers + +------+ + | Care Mail Caller Name | Role | Phone | [...] | | | | | Alexander | [facility] | | | | | [facility] | [place], [place] | | | | | [facility] | [address] | | | | | [facility] | [phone] | | | | | Mailcode: DCH7 | | | | | | Alexander | | | | | | [place], [place] | | | | | | [address] | | | | | | [phone] | | | +--------+ + + + [...] Denise | | | | | | [place] | | | | | | [address] | | | | | | [phone] | | | | | | | | +--------+ + + + + documented as of this encounter Visit Diagnoses Not on filedocumented in this encounter"
--- OUTSIDE RECORDS SUMMARY | ~2018-08-13 | XMS | Encounter Summary ---
Demographics + + + | Address | [address] | | | [place] [address] | + + + | Home Phone [...] | | | | | [place] [address] | | + + + + + | Thania Mallory | ECON | [address] | | | | | [place] [address] | | + + + + + | Deidra Weldon | ECON | [address] | | | | | [place] | | | | | [address] | | + + + + + Care Team Providers + +------+ + | Care Ground Control Approach Technician Name | Role | Phone | [...] SW | | | | [facility] | [facility] | follow-up on | | | | Road [place], [place] | [place], [place] | [place]'s [place] | | | | [address] | [address] | care plan) | | | | [phone] | | | +--------+ + + + [...] | | | | | | [place] | | | | | | [address] | | | | | | [phone] | | | | | | | | +--------+ + + + + documented as of this encounter Visit Diagnoses Not on filedocumented in this encounter"
--- OUTSIDE RECORDS SUMMARY | ~2018-08-13 | XMS | Encounter Summary ---
Demographics + + + | Address | [address] | | | [place] [address] | + + + | Home Phone [...] | | | | | [place] [address] | | + + + + + | Thania [place]ory | ECON | [address] | | | | | [place] [address] | | + + + + + | Deidra Weldon | ECON | [address] | | | | | [place] | | | | | [address] | | + + + + + Care Team Providers + +------+ + | Care Cook [employer] Cafeteria Name | Role | Phone | + [...] [address] | RN [address] [facility] | | | | | [facility] | [facility] | | | | | Road [place], [place] | [place], [place] | | | | | [address] | [address] | | | | | [phone] | | | +--------+ + + + [...] Denise | | | | | | [place] | | | | | | [address] | | | | | | [phone] | | | | | | | | +--------+ + + + + documented as of this encounter Visit Diagnoses Not on filedocumented in this encounter"
--- OUTSIDE RECORDS SUMMARY | ~2018-08-13 | XMS | Encounter Summary ---
Demographics + + + | Address | [address] | | | [place] [address] | + + + | Home Phone [...] + + + | Author | [employer] | + + + | Organization | [facility] | + + + | [...] Providers + +------+ + | Care Psychology Intern Name | Role | Phone | [...] + | 06/28/ | Documentati | [facility] | Doris Alvarenga MA | Other ([facility] | | 2019 | on Only | [facility] [place] | | ED & Testing | | | | [address] | | 06/19/18) | | | | [address] | | | | | | [place] [address] | | | | | | [phone] | | | +--------+ + + + [...] [place] | | | | | | [facility] [address] | | | | | | [phone] | | | | | | | | +--------+---------+ + + + as of this encounter Visit Diagnoses Not on filein this encounter"
--- OUTSIDE RECORDS SUMMARY | ~2018-08-13 | XMS | Encounter Summary ---
Demographics + + + | Address | [address] | | | [place] [address] | + + + | Home Phone [...] | | | | | [place] [address] | | + + + + + | Thania [place] | ECON | [address] | | | | | [place] [address] | | + + + + + | Deidra Weldon | ECON | [address] | | | | | [place] | | | | | [address] | | + + + + + Care Team Providers + +------+ + | Care Computer Software Engineer Name | Role | Phone | + +------+ + | No Pcp Per Patient | PCP | Unavailable | + +------+ + Encounter Details +--------+ + + + + | Date | Type | Department | Care Team | Description | +--------+ + + + + | 10/17/ | Document-Sc | UNKNOWN DEPARTMENT | Unknown . | | | 2015 | ann | [address] [facility] | | | | | | [facility] | | | | | | [place], [place] | | | | | | [address] | | | +--------+ + + + [...] | | | [place], [place] | | | | | | [address] | | | | | | [phone] | | | | | | | | +--------+ + + + + documented as of this encounter Visit Diagnoses Not on [facility] encounter"
--- OUTSIDE RECORDS SUMMARY | ~2018-08-13 | XMS | Encounter Summary ---
Demographics + + + | Address | [address] | | | [place] [address] | + + + | Home Phone [...] + + + | Author | [facility] | + + + | Organization | [facility] | + + + | Address | Unknown | + + + | Phone | Unavailable | + + + Support + + + + + | Name | Relationship | Address | Phone | + + + + + | Cory Weldon | ECON | [address] | | | | | [place] [address] | | + + + + + | Thania [place] | ECON | [address] | | | | | [place] [address] | | + + + + + | Deidra Weldon | ECON | [address] | | | | | [place] | | | | | [address] | | + + + + + Care Team Providers + +------+ + | Care Social Sciences Professor Name | Role | Phone | [...] [facility] | | | | | [facility] | [place], [place] | | | | | [address] [facility] [address] | [address] | | | | | [facility] | [phone] | | | | | Mailcode: DCH7 | | | | | | Alexander | | | | | | [place], [place] | | | | | | [address] | | | | | | [phone] | | | +--------+ + + + [...] Denise | | | | | | [place], [place] | | | | | | [address] | | | | | | [phone] | | | | | | | [...] [address] | [place] [address] | [phone] | | HOSPITAL | | | | [...] | [address] | [place] [address] | [phone] | | HOSPITAL | | | | [...] [address] | [place] [address] | [phone] | | HOSPITAL | | | | [...] | [address] | [place] [address] | [phone] | | HOSPITAL | | | | [...] | [address] | [place] [address] | [phone] | | HOSPITAL | | | | [...] | [address] | [place] [address] | [phone] | | HOSPITAL | | | | + + + + + documented in this encounter Visit Diagnoses Not on filedocumented in this encounter"
--- OUTSIDE RECORDS SUMMARY | ~2018-08-13 | XMS | Encounter Summary ---
Demographics + + + | Address | [address] | | | [place] [address] | + + + | Home Phone [...] | | | | | [place] [address] | | + + + + + | Thania [place]ory | ECON | [address] | | | | | [place] [address] | | + + + + + | Deidra Weldon | ECON | [address] | | | | | [place] | | | | | [address] | | + + + + + Care Team Providers + +------+ + | Care Grades 9 12 Tutor Name | Role | Phone | [...] | Coordinators [address] | [address] [facility] | Update | | | | [facility] | [facility] | | | | | Road [place], [place] | [place], [place] | | | | | [address] | [address] | | | | | [phone] | [phone] | | | | | | | [...] Denise | | | | | | [place], [place] | | | | | | [address] | | | | | | [phone] | | | | | | | | +--------+ + + + + documented as of this encounter Visit Diagnoses Not on filedocumented in this encounter"
--- OUTSIDE RECORDS SUMMARY | ~2018-08-13 | XMS | Encounter Summary ---
Demographics + + + | Address | [address] | | | [place] [address] | + + + | Home Phone [...] | | | | | [place] [address] | | + + + + + | Thania Mallory | ECON | [address] | | | | | [place] [address] | | + + + + + | Deidra Weldon | ECON | [address] | | | | | [place] | | | | | [address] | | + + + + + Care Team Providers + +------+ + | Care Card Game Operator Name | Role | Phone | + +------+ + | Shahid Camargo MD | PCP | Unavailable | + +------+ + Encounter Details +--------+ + + + + | Date | Type | Department | Care Team | Description | +--------+ + + + + | 12/20/ | Hospital | Radiology at [facility] | | | | 2012 | Encounter | [address] | | | | | | [facility] | | | | | | Mailcode: L340 | | | | | | [place] | | | | | | [place], [place] | | | | | | [address] | | | | | | [phone] | | | +--------+ + + + [...] Denise | | | | | | [place], [place] | | | | | | [address] | | | | | | [phone] | | | | | | | [...] | | + +---------+ + + | [facility] DEPARTMENT OF | | | | | RADIOLOGY | | | | + +---------+ + + documented in this encounter Visit Diagnoses + + | Diagnosis | + + | 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
--- OUTSIDE RECORDS SUMMARY | ~2018-08-13 | XMS | Encounter Summary ---
Demographics + + + | Address | [address] | | | [place] [address] | + + + | Home Phone [...] | | | | | [place] [address] | | + + + + + | Thania Mallory | ECON | [address] | | | | | [place] [address] | | + + + + + | Deidra Weldon | ECON | [address] | | | | | [place] | | | | | [address] | | + + + + + Care Team Providers + +------+ + | Care Snack Stewardess Name | Role | Phone | + [...] Telephone | Transplant | Kelsi Martinez | Enoc Listing | | 2013 | | Coordinators [address] | RN [address] [facility] | | | | | [address] [facility] | [facility] | | | | | Road [place], [place] | [place], [place] | | | | | [address] | [address] | | | | | [phone] | | | +--------+ + + + [...] | | | | | | [place], [place] | | | | | | [address] | | | | | | [phone] | | | | | | | | +--------+ + + + + documented as of this encounter Visit Diagnoses Not on filedocumented in this encounter"
--- OUTSIDE RECORDS SUMMARY | ~2018-08-13 | XMS | Encounter Summary ---
Demographics + + + | Address | [address] | | | [place] [address] | + + + | Home Phone [...] + + + | Author | [employer] | + + + | Organization | [facility] | + + [...] + | 06/28/ | Documentati | [facility] [place] | Doris Alvarenga MA | Other ([facility] | | 2018 | on Only | Cardiology [place] | | ED & Testing | | | | [address] | | 06/12/18) | | | | [address] | | | | | | [place] [address] | | | | | | [phone] | | | +--------+ + + + [...] [place] | | | | | | [facility] [place] [address] | | | | | | [phone] | | | | | | | | +--------+---------+ + + + as of this encounter Visit Diagnoses Not on filein this encounter"
--- OUTSIDE RECORDS SUMMARY | ~2018-08-13 | XMS | Encounter Summary ---
Demographics + + + | Address | [address] | | | [place] [address] | + + + | Home Phone [...] | | | | | [place] [address] | | + + + + + | Thania Mallory | ECON | [address] | | | | | [place] [address] | | + + + + + | Deidra Weldon | ECON | [address] | | | | | [place] | | | | | [address] | | + + + + + Care Team Providers + +------+ + | Care Singing Waiter Or Waitress Name | Role | Phone | [...] [facility] | [place], [place] | | | | | [address] | [address] | | | | | [facility] | | | | | | Mailcode: DCH7 | | | | | | [place] | | | | | | [place], [place] | | | | | | [address] | | | | | | [phone] | | | +--------+ + + + [...] Denise | | | | | | [place], [place] | | | | | | [address] | | | | | | [phone] | | | | | | | | +--------+ + + + + documented as of this encounter Visit Diagnoses + + | Diagnosis | + + | 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
--- OUTSIDE RECORDS SUMMARY | ~2018-08-13 | XMS | Encounter Summary ---
Demographics + + + | Address | [address] | | | [place] [address] | + + + | Home Phone [...] | | | | | [place] [address] | | + + + + + | Thania Mallory | ECON | [address] | | | | | [place] [address] | | + + + + + | Deidra Weldon | ECON | [address] | | | | | [place] | | | | | [address] | | + + + + + Care Team Providers + +------+ + | Care Medical Transcription Radiology Name | Role | Phone | [...] [place] | | | | | | [facility] | | | | | | [place], [place] | | | | | | [address] | | | +--------+ + + + [...] [place] | | | | | | [address] | | | | | | [phone] | | | | | | | [...] [facility] - | [address] | [place] [address] | | | IMMUNOGENETICS/TRANS | [address] [...] [place] - | [address], | [place] [address] | | | IMMUNOGENETICS/TRANS | [address] [...] [place] - | [address] | [place] [address] | | | IMMUNOGENETICS/TRANS | [address] | | | | [facility] | | | | + + + + + documented in this encounter Visit Diagnoses + + | Diagnosis | + + | End stage renal disease (HCC) End stage renal disease | + + documented in this encounter"
--- OUTSIDE RECORDS SUMMARY | ~2018-08-13 | XMS | Encounter Summary ---
Demographics + + + | Address | [address] | | | [place] [address] | + + + | Home Phone [...] | | | | | [place] [address] | | + + + + + | Thania Mallory | ECON | [address] | | | | | [place] [address] | | + + + + + | Deidra Weldon | ECON | [address] | | | | | [place] | | | | | [address] | | + + + + + Care Team Providers + +------+ + | Care Boat Patcher Plastic Name | Role | Phone | + [...] Requested | | | | [place] | [facility] | | | | | [facility] | [place], [place] | | | | | [address] | [address] | | | | | [facility] | | | | | | Mailcode: DCH7 | | | | | | [place] | | | | | | [place], [place] | | | | | | [address] | | | | | | [phone] | | | +--------+ + + + [...] | | | | [place] | | | | | | [address] | | | | | | [phone] | | | | | | | | +--------+ + + + + documented as of this encounter Visit Diagnoses Not on filedocumented in this encounter"
--- OUTSIDE RECORDS SUMMARY | ~2018-08-13 | XMS | Encounter Summary ---
Demographics + + + | Address | [address] | | | [place] [address] | + + + | Home Phone [...] | | | | | [place] [address] | | + + + + + | Thania Mallory | ECON | [address] | | | | | [place] [address] | | + + + + + | Deidra Weldon | ECON | [address] | | | | | [place] | | | | | [address] | | + + + + + Care Team Providers + +------+ + | Care E Marketing Specialist Name | Role | Phone | [...] | | Jonathan Gallagher, | [address] | | | | | | [address] | [address] | | | | | | [address] | Elias [place]izondo | | | | | | [facility] | Road | | | | | | [address] | Mailcode: | | | | | | [address] | [address] | | | | | | [place] | [place] | | | | | | [place] | [place], [place] | | | | | | [address] | [address] | | | | | | Phone: | Phone: | | | | | | [phone] | [phone] | | | | | | Fax: | | | | | | | [phone] | | +--------+--------+ + + + + Encounter Details +--------+---------+ + + + | Date | Type | Department | Care Team | Description | +--------+---------+ + + + | 05/24/ | Office | Specialty Clinics | Sudhakar Joy | [facility] | | 2017 | Visit | at [facility] [address] | DMD [address] | ([place] | | | | [facility] | [address] | purpura) nephritis | | | | Mailcode: [facility] | [place], [place] | (Primary Dx); 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 Her adult retort furnace helper could refer her to adult transplant when [...] [address] Mail code [facility] [place], [place] [id number] documented in this encounter Plan of Treatment +--------+ + + + + | Date | Type | Specialty | Care Team | Description | +--------+ + + + + | 05/04/ | Hospital | Adult Acute Care | El Starr MD | | | 2022 | Encounter | | [address] | | | | | | [place], [place] | | | | | | [address] | | | | | | [phone] | | | | | | | [...]
--- OUTSIDE RECORDS SUMMARY | ~2018-08-13 | XMS | Encounter Summary ---
Demographics + + + | Address | [address] | | | [place] [address] | + + + | Home Phone [...] + | Author | [facility] | | | and Josephana | + + + | Organization | [facility] | [...] Providers + +------+ + | Care Fire Crew Worker Name | Role | Phone | [...] | | KIDNEY TRANSPLANT | [address] [place], | | | | | [address] [facility] | [place] [address] | | | | | [address] [place] | [phone] | | | | | [address] | | | | | | [phone] | | | +--------+ + + + [...]
--- OUTSIDE RECORDS SUMMARY | ~2018-08-13 | XMS | Encounter Summary ---
Demographics + + + | Address | [address] | | | [place] [address] | + + + | Home Phone [...] | | | | | [place] [address] | | + + + + + | Thania Mallory | ECON | [address] | | | | | [place] [address] | | + + + + + | Deidra Weldon | ECON | [address] | | | | | [place] | | | | | [address] | | + + + + + Care Team Providers + +------+ + | Care Senior Mechanical Project Manager Name | Role | Phone [...] (Close | | | | [address] [facility] | [facility] | referral) | | | | Road [place], [place] | [place], [place] | | | | | [address] | [address] | | | | | [phone] | | | +--------+ + + + [...] [facility] | | | | | | [address] | | | | | | [phone] | | | | | | | | +--------+ + + + + documented as of this encounter Visit Diagnoses Not on filedocumented in this encounter"
--- OUTSIDE RECORDS SUMMARY | ~2018-08-13 | XMS | Encounter Summary ---
Demographics + + + | Address | [address] | | | [place] [address] | + + + | Home Phone [...] | | | | | [place] [address] | | + + + + + | Thania Mallory | ECON | [address] | | | | | [place] [address] | | + + + + + | Deidra Weldon | ECON | [address] | | | | | [place] | | | | | [address] | | + + + + + Care Team Providers + +------+ + | Care Relocation Director Name | Role | Phone | [...] [place] | | | | | | [place], [place] | | | | | | [address] | | | | | | [phone] | | | | | | | | +--------+ + + + + documented as of this encounter Visit Diagnoses Not on filedocumented in this encounter"
--- OUTSIDE RECORDS SUMMARY | ~2018-08-13 | XMS | Encounter Summary ---
Demographics + + + | Address | [address] | | | [place] [address] | + + + | Home Phone [...] | | | | | [place] [address] | | + + + + + | Thania Mallory | ECON | [address] | | | | | [place] [address] | | + + + + + | Deidra Weldon | ECON | [address] | | | | | [place] | | | | | [address] | | + + + + + Care Team Providers + +------+ + | Care Layer Off Name | Role | Phone | + [...] [address] | RN [address] [facility] | Committee | | | | [address] [facility] | [facility] | recommendations) | | | | Road [place], [place] | [place], [place] | | | | | [address] | [address] | | | | | [phone] | | | +--------+ + + + [...] Denise | | | | | | [place], [place] | | | | | | [address] | | | | | | [phone] | | | | | | | | +--------+ + + + + documented as of this encounter Visit Diagnoses Not on filedocumented in this encounter"
--- OUTSIDE RECORDS SUMMARY | ~2018-08-13 | XMS | Encounter Summary ---
Demographics + + + | Address | [address] | | | [place] [address] | + + + | Home Phone [...] + + + | Author | [employer] | + + + | Organization | [facility] | + + + [...] | right | [address] | [address] | | | | | | [address] | [place], [place] | | | | | | [place] | [address] | | | | | | [address] | Phone: | | | | | | Phone: | [phone] | | | | | | [phone] | | | | | | | Fax: | | | | | | | [phone] | | + + + + + + + Reason for Visit + + + | Reason | Comments | + + + | Pneumonia | transfer from [facility] | + + + | Cough | pt was at dialysis, did not finish due to a cough. holly | | | dialysis Y[facility] | + + + Auth/Cert +--------+--------+ + + + + | Status | Reason | Specialty | Diagnoses / | Referred By | Referred To | | | | | Procedures | Contact | Contact | +--------+--------+ + + + + | | | Internal | Diagnoses | | [facility] 4th | | | | Medicine | Hypoxia | | [place] | | | | | Febrile | | [address] | | | | | illness | | [address] | | | | | Recurrent | | [place], [place] | | | | | pleural | | [address] Phone: | | | | | effusion on | | [phone] | | | | | right | | Fax: | | | | | History of | | [phone] | | | | | end stage | | | | | | | renal | | | | | | | disease | | | | | | | | | | +--------+--------+ + + + + Encounter Details +--------+ + + + + | Date | Type | Department | Care Team | Description | +--------+ + + + + | 07/18/ | Hospital | [facility] | Matt Gabriel DO | Febrile illness | | 2019 - | Encounter | [facility] 4[facility] | [address] | (Primary Dx); | | | | [place] | EMERGENCY DEPARTMENT | Recurrent pleural | | 07/24/ | | [address] | [place] [address] | effusion on right; | | 2019 | | [place] [address] | [phone] | Hypoxia; History of | | | | [phone] | | end stage renal | | | | | Mary Mckay MD | disease; ESRD on | | | | | [address] | hemodialysis ([facility]); | | | | | [place] [address] | Anemia in ESRD | | | | | [phone] | (end-stage renal | | | | | | disease) ([facility]); | | | | | Usha Martínez MD [address] | Moderate to severe | | | | | [address] | pulmonary | | | | | [address] | hypertension ([facility]); | | | | | [place] [address] | Chronic right-sided | | | | | [phone] | heart failure ([facility]); | | | | | | Pleural effusion on | | | | | Sotero Reinoso MD | right | | | | | [address] | | | | | | [place] [address] | | | | | | [phone] | | | | | | | [...] + + in this encounter Discharge Summaries Usha Martínez MD - 07/24/2018 9:06 AM PDTFormatting of this note may be different from the original. [facility] Service: Hospitalist Discharge Summary Date [...] drainable by ultrasound guidance. Signed by: Eliza Bustos, Quang Sign Date/Time: 2018 11:43 AM X-ray Chest [...] renal disease on hemodialysis Monday and Monday (action installer Dr. 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, hypertension, asthma, chronic combined heart failure, severe pulmonary hypertension, cor pulmonale, moderate mitral valve regurgitation, severe tricuspid regurgit ation and other chronic comorbidities who was discharged on 05/2018 from [facility] with bilateral pleural effusions and ascites status post thoracentesis 1.5 L removed transudative and 4 L ascitic fluid removed who presents to [facility] ER from [place] [facility] for sepsis likely seco ndary to [...] after discharge and to follow -up with action installer and bariatric coordinator within 1 to 2 weeks after discharge [...] AV FISTULA; Surgeon: Rik Simon MD; Location: [facility] OR; Service: Vascula r; Laterality: Left; cephalic AV FISTULA REPAIR Left 03/07/2014 Procedure: AV FISTULA - GRAFT REPAIR/REVISION; Surgeon: Rik Simon MD; Location: [facility] IN OR; Service: Vascular; Laterality: Left; DECLOT GRAFT Left 03/07/2014 Procedure: GRAFT - DECLOT; Surgeon: Rik Simno MD; Location: [facility] OR; Service: Vas cular; Laterality: Left; DIALYSIS FISTULA CREATION N/A 04/08/2014 Procedure: DIALYSIS CATHETER - INSERTION; Surgeon: Rik Simon MD; Location: [facility] OR ; Service: Vascular; Laterality: N/A; [...] PH Unknown 7.48 Fluid culture w/gram stain [[id number]] Collected: 07/21/18 1400 Order Status: Completed Lab Status: Preliminary result Updated: 07/24/18 0948 Specimen: Body Fluid from Thoracic Fluid Specimen Description THORACIC FLUID GRAM STAIN NO CELLS OR ORGANISMS SEEN CULTURE NO GROWTH 3 DAYS Fluid total protein (Body fluid) [[id number]] Collected: 07/21/18 1400 Order Status: Completed Lab Status: Final result Updated: 07/21/18 1650 Specimen: Body Fluid from Thoracentesis Fluid FLUID TOTAL PROTEIN 4.2 g/dL Comment: This is not a typing bookkeeper validated sample type for this method. No reference ra nges have been established. Testing performed at [facility], [address] [place] [address] FLUID TP SOURCE THORACENTESIS Comment: Testing performed at [facility];[address] [place] [address] Lactate dehydrogenase, body fluid [[id number]] Collected: 07/21/18 1400 Order Status: Completed Lab Status: Final result Updated: 07/21/18 1650 Specimen: Body Fluid from Thoracentesis Fluid FLUID LDH 148 U/L Comment: This is not a typing bookkeeper validated sample type for this method. No reference ra nges have been established. Testing performed at [facility], [address] [place] [address] pH, body fluid [[id number]] Collected: 07/21/18 1400 Order Status: Completed Lab Status: Final result Updated: 07/21/18 1426 Specimen: Body Fluid from Thoracentesis Fluid FLUID PH 7.48 Comment: Testing performed at [facility];[address] [place] [address] Blood Culture Set 1 [[id number]] Collected: 07/19/18 0853 Order Status: Completed Lab Status: Preliminary result Updated: 07/21/18 0600 Specimen: Blood from Blood, peripheral draw Specimen Description BLOOD, PERIPHERAL DRAW SPECIAL REQUESTS RIGHT AC CULTURE NO GROWTH 2 DAYS Blood Culture Set 2 [[id number]] Collected: 07/19/18 0925 Order Status: Completed Lab Status: Preliminary result Updated: 07/21/18 0600 Specimen: Blood from Blood, peripheral draw Specimen Description BLOOD, PERIPHERAL DRAW SPECIAL REQUESTS RT FOREARM CULTURE NO GROWTH 2 DAYS Respiratory Filmarray [[id number]] (Abnormal) Collected: 07/19/18 0132 Order Status: Completed [...] Molecular Methodology Comment: Testing performed at [facility], [address] [place] [address] MRSA by PCR [[id number]] Collected: 07/19/18 0134 Order Status: Completed Lab Status: Final result Updated: 07/19/18 0304 Specimen: Nasal from Nares(Nose) SOURCE NARES(NOSE) MRSA PCR NEGATIVE Comment: Testing performed at [facility];[address] [place] [address] Disposition: Home Condition: Stable Code Status: Full [...] Nicholson MD [address] [place] [address] Schedule an appointment as soon as possible for a visit in 1 week [facility] [address] [place] [address] Schedule an appointment as soon as possible for a visit in 1 week [facility] [address] [facility] [address] Schedule an appointment as soon as [...] o f discharge summary. Usha Martínez MD 07/24/2018in this encounter Medications at Time of Discharge + + +---------+---------+ + + | Medication | Sig. | Disp. | Refills | Start | End Date | | | | | | Date | | + + +---------+---------+ + + | clopidogrel | Take 75 [...] | | | | | + + +---------+---------+ + + | sevelamer | Take 2 tablets by | 180 | 2 | 06/02/19 | | | (RENVELA) 800 MG | mouth 3 (three) | tablet | | 19 | 0 | | tablet | times daily with | | | | | | | meals. | | | | | + + +---------+---------+ + + | valsartan (DIOVAN) | Take 1 tablet by | 30 | 11 | 06/15/19 | | | 40 MG tablet | mouth daily. | tablet | | 19 | 0 | + + +---------+---------+ + + | | Take 3 mLs by | | | | | | ipratropium-albutero | nebulization. | | | | | | l (DUO-NEB) 0.5-2.5 | | | | | | | mg/3mL | | | | | | + + +---------+---------+ + + | metoprolol | Take 1 tablet by | 30 | 2 | 07/25/19 | | | (TOPROL-XL) 50 MG 24 | mouth daily. | tablet | | 19 | 0 | | hr tablet | | | | | | + + +---------+---------+ + + | predniSONE | Take 6 tablets by | 90 | 0 | 07/25/19 | | | (DELTASONE) 10 MG | mouth daily with | tablet | | 19 | | | tablet | breakfast. Take 6 | | | | | | | tablets x [...] 1 day | | | | | + + +---------+---------+ + + | promethazine | Take 1 [...] | | | | | + + +---------+---------+ + + | pantoprazole | Take 1 tablet by | 30 | 1 | 06/03/19 | | | (PROTONIX) 40 MG | mouth every morning | tablet | | 19 | 9 | | tablet | before breakfast for | | | | | | | 60 days. | | | | | + + +---------+---------+ + + | cefdinir (OMNICEF) | Take 1 capsule by | 4 | 0 | 07/25/19 | | | 300 MG | mouth every other | capsule | | 19 | 9 | | capsuleIndications: | day for 8 days. | | | | | | Sepsis of Unknown | | | | | | | Etiology | | | | | | + + +---------+---------+ + + | ondansetron | Take 1 tablet by | 20 | 0 | 07/25/19 | | | (ZOFRAN-ODT) 4 MG | mouth every 6 (six) | tablet | | 19 | 9 | | disintegrating | hours as needed for | | | | | | tablet | Nausea for up to 7 | | | | | | | days. | | | | | + + +---------+---------+ + + as of this encounter Progress Notes Billie Gupta MD - 07/24/2018 9:09 AM PDTFormatting of this note may be different fr om the original. [facility] Followup -Nephrology I saw . Dara Louise today for follow-up. she is interviewed, examined and meds/ labs Have been reviewed. 23-year-old female with an extensive past medical history of IgA vasculitis, end-stage abdiel l disease on hemodialysis Monday and Monday (action installer Dr. Anguiano) , chronic c ombined heart failure, severe pulmonary hypertension, cor pulmonale, moderate mitral valve r egurgitation, severe tricuspid regurgitation and other chronic comorbidities who was dischar ged on 05/2018 from [facility] with bilateral pleural effusions and ascites status post thoracente sis 1.5 L removed transudative and 4 L ascitic fluid removed who presents to [facility] ER f rom [place] [facility] for sepsis likely secondary to pneumonia. [...] Intake/Output Summary (Last 24 hours) at 07/24/18 09 Last data filed at 07/24/18 0625 Gross [...] phosphorus containing laxatives should be avoided 07/24/2018 Sotero Reinoso MD - 07/23/2018 1:36 PM [facility] Service: Hospitalist Progress Note Hospital Day: LOS: 4 days Briefly, 23-year-old female with an extensive past medical history of IgA vasculitis, end-s tage renal disease on hemodialysis Monday and Monday (action installer Dr. Anguiano) co mplicated with thrombosis of vascular dialysis stent on Plavix, hypertension, asthma, chroni c combined heart failure, severe pulmonary hypertension, cor pulmonale, moderate mitral valv e regurgitation, severe tricuspid regurgitation and other chronic comorbidities who was disc harged on 05/2018 from [facility] with bilateral pleural effusions and ascites status post thorace ntesis 1.5 L removed transudative and 4 L ascitic fluid removed who presents to [facility] E R from [place] [facility] for sepsis likely secondary to pulmonary [...] weeks after discharge and to follow-up with action installer and bariatric coordinator within 1 to 2 weeks after discharge [...] range Anemia in ESRD (end-stage renal disease) ([facility]) ASSESSMENT & PLAN 1. Sepsis: -Hemodynamically stable. -Noted at [facility] the patient was febrile with a [...] The patient does follow up with outpatient bariatric coordinator (Dr. Mahmood) patient is tentative ly and referral to advanced heart failure center with consideration of AICD basement. -The patient has been educated on fluid and salt restriction in detail. Thrombocytopenia: -Chronic. -Stable, will monitor. Severe tricuspid regurgitation/moderate mitral regurgitation: -Medical management. -Maintain euvolemia Disposition: inpatient Code Status: Full Code Sotero Reinoso MD 07/23/2018 Billie Gupta MD - 07/23/2018 9:18 AM PDTFormatting of this note may be different fr om the original. [facility] Followup -Nephrology I saw Ms. Dara Louise today for follow-up. she is interviewed, examined and meds/ labs Have been reviewed. 23-year-old female with an extensive past medical history of IgA vasculitis, end-stage abdiel l disease on hemodialysis Monday and Monday (action installer Dr. Anguiano) , chronic c ombined heart failure, severe pulmonary hypertension, cor pulmonale, moderate mitral valve r egurgitation, severe tricuspid regurgitation and other chronic comorbidities who was dischar ged on 05/2018 from [facility] with bilateral pleural effusions and ascites status post thoracente sis 1.5 L removed transudative and 4 L ascitic fluid removed who presents to [facility] ER f [facility] ER for sepsis likely secondary [...] phosphorus containing laxatives should be avoided 07/23/2018 Sotero Reinoso MD - 07/22/2018 5:23 PM [facility] Service: Hospitalist Progress Note Hospital Day: LOS: 3 days 23-year-old female with an extensive past medical history of IgA vasculitis, end-stage abdiel l disease on hemodialysis Monday and Monday (action installer Dr. Anguiano) complicated with thrombosis of vascular dialysis stent on Plavix, hypertension, asthma, chronic combine d heart failure, severe pulmonary hypertension, cor pulmonale, moderate mitral valve regurgi tation, severe tricuspid regurgitation and other chronic comorbidities who was discharged on 05/2018 from [facility] with bilateral pleural effusions and ascites status post thoracentesis 1.5 L removed transudative and 4 L ascitic fluid removed who presents to [facility] ER from [facility] [...] Dilated cardiomyopathy (HCC) Acute hypoxemic respiratory failure ([facility]) Pleural effusion on right Chronic right-sided heart failure ([facility]) Hypertension Pancytopenia (HCC) Chest pain Other ascites Troponin I above reference range Anemia in ESRD (end-stage renal disease) ([facility]) ASSESSMENT & PLAN 1. Sepsis: -Hemodynamically stable. -Noted at [facility] the patient was febrile with a [...] The patient does follow up with outpatient bariatric coordinator (Dr. Mahmood) patient is tentative ly and referral to advanced heart failure center with consideration of AICD basement. -The patient has been educated on fluid and salt restriction in detail. Thrombocytopenia: -Chronic. -Stable, will monitor. Severe tricuspid regurgitation/moderate mitral regurgitation: -Medical management. -Maintain euvolemia Disposition: inpatient Code Status: Full Code Sotero Reinoso MD 07/22/2018 Billie Gupta MD - 07/22/2018 9:34 AM PDTFormatting of this note may be different fr om the original. [facility] Followup -Nephrology I saw Ms. Dara Louise today for follow-up. she is interviewed, examined and meds/ labs Have been reviewed. 23-year-old female with an extensive past medical history of IgA vasculitis, end-stage abdiel l disease on hemodialysis Monday and Monday (action installer Dr. Anguiano) complicated with thrombosis of vascular dialysis stent on Plavix, hypertension, asthma, chronic combine d heart failure, severe pulmonary hypertension, cor pulmonale, moderate mitral valve regurgi tation, severe tricuspid regurgitation and other chronic comorbidities who was discharged on 05/2018 from [facility] with bilateral pleural effusions and ascites status post thoracentesis 1.5 L removed transudative and 4 L ascitic fluid removed who presents to [facility] ER from [facility] [...] phosphorus containing laxatives should be avoided 07/22/2018 Sotero Reinoso MD - 07/21/2018 12:33 PM [facility] Service: Hospitalist Progress Note Hospital Day: LOS: 2 days 23-year-old female with an extensive past medical history of IgA vasculitis, end-stage abdiel l disease on hemodialysis Monday and Monday (action installer Dr. Anguiano) complicated with thrombosis of vascular dialysis stent on Plavix, hypertension, asthma, chronic combine d heart failure, severe pulmonary hypertension, cor pulmonale, moderate mitral valve regurgi tation, severe tricuspid regurgitation and other chronic comorbidities who was discharged on 05/2018 from [facility] with bilateral pleural effusions and ascites status post thoracentesis 1.5 L removed transudative and 4 L ascitic fluid removed who presents to [facility] ER from [facility] [...] PLAN 1. Sepsis: -Hemodynamically stable. -Noted at [facility] the patient was febrile with a [...] The patient does follow up with outpatient bariatric coordinator (Dr. Mahmood) patient is tentative ly and referral to advanced heart failure center with consideration of AICD basement. Thrombocytopenia: -Chronic. -Stable, will monitor. Severe tricuspid regurgitation/moderate mitral regurgitation: -Medical management. -Maintain euvolemia Disposition: inpatient Code Status: Full Code Sotero Reinoso MD 07/21/2018 Billie Gupta MD - 07/21/2018 10:24 AM PDTFormatting of this note may be different fr om the original. [facility] Followup -Nephrology I saw Ms. [...] be avoided. Billie Gupta MD FACP,FASN 07/21/2018 Prashanth Estevez RN - 07/20/2018 4:25 PM PDTInfection Prevention Note: Isolation requirements due to positive [...] treatment completed Mycoplasma pneumoniae Droplet (DI) Prashanth GOODSON, Sotero Jauregui MD - 07/20/2018 4:15 PM [facility] nter Service: Hospitalist Progress Note Hospital Day: LOS: 1 day 23-year-old female with an extensive past medical history of IgA vasculitis, end-stage abdiel l disease on hemodialysis Monday and Monday (action installer Dr. Anguiano) complicated with thrombosis of vascular dialysis stent on Plavix, hypertension, asthma, chronic combine d heart failure, severe pulmonary hypertension, cor pulmonale, moderate mitral valve regurgi tation, severe tricuspid regurgitation and other chronic comorbidities who was discharged on 05/2018 from [facility] with bilateral pleural effusions and ascites status post thoracentesis 1.5 L removed transudative and 4 L ascitic fluid removed who presents to [facility] ER from [facility] [...] range Anemia in ESRD (end-stage renal disease) ([facility]) ASSESSMENT & PLAN 1. Sepsis: -Hemodynamically stable. -Noted at [facility] the patient was febrile with a [...] The patient does follow up with outpatient bariatric coordinator (Dr. Mahmood) patient is tentative ly and referral to advanced heart failure center with consideration of AICD basement. Thrombocytopenia: -Chronic. -Stable, will monitor. Severe tricuspid regurgitation/moderate mitral regurgitation: -Medical management. -Maintain euvolemia Disposition: inpatient Code Status: Full Code Sotero Reinoso MD 07/20/2018 Yudy Patel ARNP - 07/20/2018 8:50 AM PDTMult[facility] Service: Radiology Progress Note Patient [...] near future. THORACENTESIS NOT PERFORMED KRISHNA Nice 07/20/2018Antonio Pabon MD - 07/19/2018 1:50 PM PDTFormatting of this note may be different from the original. [facility] Service: NEPHROLOGY Dialysis Note Dara Louise 23 y.o. [id number] female [place] [facility] Day: LOS: 0 days 23-year-old [...] AV FISTULA; Surgeon: Rik Simon MD; Location: [facility] MAIN OR; Service: Vascula r; Laterality: Left; cephalic AV FISTULA REPAIR Left 03/07/2014 Procedure: AV FISTULA - GRAFT REPAIR/REVISION; Surgeon: Rik Simon MD; Location: [facility] IN OR; Service: Vascular; Laterality: Left; DECLOT GRAFT Left 03/07/2014 Procedure: GRAFT - DECLOT; Surgeon: Rik Simon MD; Location: [facility] OR; Service: Vas cular; Laterality: Left; DIALYSIS FISTULA CREATION N/A 04/08/2014 Procedure: DIALYSIS CATHETER - INSERTION; Surgeon: Rik Simon MD; Location: [facility] OR ; Service: Vascular; Laterality: N/A; tunneled catheter LAPAROSCOPIC PERITONEAL DIALYSIS CATHETER INSERTION x2 LAPAROSCOPIC PERITONEAL DIALYSIS CATHETER INSERTION Right 07/2013 current dialysis access MWF dialysis RENAL BIOPSY RENAL BIOPSY Left 2003 SUPERFICIALIZATION OF AV FISTULA Left 06/24/2014 Procedure: AV FISTULA - SUPERFICIALIZATION; Surgeon: Rik Simon MD; Location: [facility] OR; Service: Vascular; Laterality: Left; Prescriptions [...] on file Social History Narrative Lives in [facility], 2 wks ago fell at home , [...] earlier and charting completed later Dictation software, [employer], used which may contain error for similar sounding words even af ter review. Personal communication requested for any clarification. Sotero Reinoso MD - 07/19/2018 8:01 AM [facility] Service: Hospitalist Progress Note Hospital Day: LOS: 0 days 23-year-old female with an extensive past medical history of IgA vasculitis, end-stage abdiel l disease on hemodialysis Monday and Monday (action installer Dr. Anguiano) complicated with thrombosis of vascular dialysis stent on Plavix, hypertension, asthma, chronic combine d heart failure, severe pulmonary hypertension, cor pulmonale, moderate mitral valve regurgi tation, severe tricuspid regurgitation and other chronic comorbidities who was discharged on 05/2018 from [facility] with bilateral pleural effusions and ascites status post thoracentesis 1.5 L removed transudative and 4 L ascitic fluid removed who presents to [facility] ER from [facility] [...] -Hemodynamically stable except for tachycardia. -Noted at [facility] the patient was febrile with a [...] The patient does follow up with outpatient bariatric coordinator (Dr. Mahmood) patient is tentative ly and referral to advanced heart failure center with consideration of AICD basement. Thrombocytopenia: -Chronic. -Stable, will monitor. Severe tricuspid regurgitation/moderate mitral regurgitation: -Medical management. -Maintain euvolemia Disposition: inpatient Code Status: Full Code Sotero Reinoso MD 07/19/2018 Jae Gutierres, [facility] - 07/19/2018 1:30 AM PDTRenal Dosing Monitoring: S: Renal dose monitoring per protocol. O: Patient on HD - M/W/F A/P: Changed Cefepime from 2g Q12H to 1g Q24H. Pharmacist: Jae Gutierres, PharmD in this encounter Plan of Treatment +--------+---------+ + + + | Date | Type | Specialty | Care Team | Description | +--------+---------+ + + + | 11/22/ | Office | Pulmonology | Denny Alexander | | | 2019 | Visit | | Deny Briggs MD [address] | | | | | [address] | | | | | | [place] [address] | | | | | | [phone] | | | | | | | | +--------+---------+ + + + + +--------+ + + | Name | Priori | Associated Diagnoses | Order Schedule | | | ty | | | + +--------+ + + | Ambulatory referral to | Routin | Pleural effusion | Ordered: 07/24/2018 | | Pulmonology | e | on right | | + +--------+ + + as of this encounter Procedures [...] +--------+ + + + | APTT | [facility] | 07/20/2018 | | Results for this [...] + + + in this encounter Results CBC w/no Diff (07/24/2018 6:04 AM) + + + + + | Component | Value | Ref Range | Performed At | + + + + + | WBC | 7.05 | 3.80 - 11.00 K/uL | [facility] | + + + + + | RBC | 3.15 (L) | 3.70 - 5.10 M/uL | [facility] | + + + + + | HGB | 11.7 | 11.3 - 15.5 g/dL | [facility] | + + + + + | HCT | 34.8 | 34.0 - 46.0 % | [facility] | + + + + + | MCV | 110.7 (H) | 80.0 - 100.0 fl | [facility] | + + + + + | MCH | 37.1 (H) | 27.0 - 34.0 pg | [facility] | + + + + + | MCHC | 33.5 | 32.0 - 35.5 g/dL | [facility] | + + + + + | RDW SD | 61.7 (H) | 37 - 53 fl | [facility] | + + + + + | PLT | 175 | 150 - 400 K/uL | [facility] | + + + + + | MPV | 9.1Comment: Testing | fl | [facility] | | | performed at [facility];[address] | | | | | [address];[place] | | | | | [address] | | | + + + + + + + + + + | Performing | Address | City/State/Zipcode | Phone Number | | Organization | | | | + + + + + | [facility] | [address] | [place] [address] | | + + + + + Renal function panel (07/24/2018 6:04 AM) + + + + + | Component | Value | Ref Range | Performed At | + + + + + | SODIUM | 140 | 135 - 145 mmol/L | [facility] | + + + + + | POTASSIUM | 4.4 | 3.5 - 4.9 mmol/L | [facility] | + + + + + | CHLORIDE | 100 | 99 - 109 mmol/L | [facility] | + + + + + | CO2 | 28 | 23 - 32 mmol/L | [facility] | + + + + + | ANION GAP AGAP | 16 | 5 - 20 mmol/L | [facility] | + + + + + | GLUCOSE | 117 (H) | 65 - 99 mg/dL | [facility] | + + + + + | BUN | 30 (H) | 8 - 25 mg/dL | [facility] | + + + + + | CREATININE | 5.48 (H) | 0.50 - 1.00 mg/dL | [facility] | + + + + + | CALCIUM | 10.2 | 8.5 - 10.5 mg/dL | [facility] | + + + + + | Albumin | 4.2 | 3.6 - 5.0 g/dL | [facility] | + + + + + | PHOSPHORUS | 4.1 | 2.3 - 4.8 mg/dL | [facility] [...] [facility] [place];[address] | | | | | [facility];[place], [place] | | | | | [address] | | | + + + + + + + | Specimen | + + | Blood | + + + + + + + | Performing | Address | City/State/Zipcode | Phone Number | | Organization | | | | + + + + + | [facility] | [address] | [facility] [address] | | + + + + + Renal function panel (07/23/2018 5:32 AM) + + + + + | Component | Value | Ref Range | Performed At | + + + + + | SODIUM | 136 | 135 - 145 mmol/L | [facility] | | | | | [facility] | + + + + + | POTASSIUM | 4.8 | 3.5 - 4.9 mmol/L | [facility] | | | | | [facility] | + + + + + | CHLORIDE | 97 (L) | 99 - 109 mmol/L | [facility] | | | | | [facility] | + + + + + | CO2 | 27 | 23 - 32 mmol/L | [facility] | | | | | [facility] | + + + + + | ANION GAP AGAP | 17 | 5 - 20 mmol/L | [facility] | | | | | [facility] | + + + + + | GLUCOSE | 154 (H) | 65 - 99 mg/dL | [facility] | | | | | [facility] | + + + + + | BUN | 42 (H) | 8 - 25 mg/dL | [facility] | | | | | [facility] | + + + + + | CREATININE | 8.3 (H) | 0.50 - 1.00 mg/dL | [...] (H) | 2.3 - 4.8 mg/dL | [facility] | | | | [facility], | | | | | [place] [address] | | | + + + + + + + + + + | Performing | Address | City/State/Zipcode | Phone Number | | Organization | | | | + + + + + | [facility] | [address] [place] [address] | [place] [address] | [phone] | | LABORATORY | [address] | | | + + + + + Magnesium (07/23/2018 5:32 AM) + + + + + | Component | Value | Ref Range | Performed At | + + + + + | MAGNESIUM | 2.6 (H)Comment: Testing | 1.7 - 2.4 mg/dL | [facility] | | | performed at [facility], [address] | | LABORATORY | | | [facility], | | | | | [place] [address] | | | + + + + + + + | Specimen | + + | Blood | + + + + + + + | Performing | Address | City/State/Zipcode | Phone Number | | Organization | | | | + + + + + | [facility] | [address] | [place] [address] | [phone] | | LABORATORY | [address] | | | + + + + + CBC W/Auto Diff (Reflex to Manual) (07/23/2018 5:32 AM) + + + + + | Component | Value | Ref Range | Performed At | + + + + + | WBC | 3.39 (L) | 3.80 - 11.00 K/uL | [facility] | + + + + + | RBC | 3.21 (L) | 3.70 - 5.10 M/uL | [facility] | + + + + + | HGB | 11.5 | 11.3 - 15.5 g/dL | [facility] | + + + + + | HCT | 34.7 | 34.0 - 46.0 % | [facility] | + + + + + [...] | MPV | 9.4 | fl | [facility] | + + + + + | DIFF TYPE | AUTOMATED | | [facility] | + + + + + | NEUTROPHILS | 89.68 | % | [facility] | + + + + + | LYMPHOCYTES | 8.19 | % | [facility] | + + + + + | MONOCYTES | 1.61 | % | [facility] | + + + + + | EOSINOPHILS | 0.19 | % | [facility] | + + + + + | BASOPHILS | 0.33 | % | [facility] | + + + + + | NEUTROPHILS ABS | 3.04 | 1.90 - 7.40 K/uL | [facility] | + + + + + | LYMPHOCYTES ABS | 0.28 (L) | 1.00 - 3.90 K/uL | [facility] | + + + + + | MONOCYTES ABS | 0.06 | 0.00 - 0.80 K/uL | [facility] | + + + + + | EOSINOPHILS ABS | 0.01 | 0.00 - 0.50 K/uL | [facility] | + + + + + | BASOPHILS ABS | 0.01 | 0.00 - 0.10 K/uL | [facility] | + + + + + | MORPHOLOGY | 1+ | | [facility] | | | Comment: | | | | | MACRO | | | | | NORMAL PLT MORPH | | | | | | | | + + + + + | Diff Comment | SLIDE SCANNED, AGREES | | [facility] | | | WITH AUTOMATED | | | | | RESULTS.Comment: Testing | | | | | performed at [facility] | | | | | [address];[place] | | | | | [address] | | | + + + + + + + | Specimen | + + | Blood | + + + + + + + | Performing | Address | City/State/Zipcode | Phone Number | | Organization | | | | + + + + + | [facility] | [address] | [facility] [address] | | + + + + + Fluid culture w/gram stain (07/21/2018 2:00 PM) + + + + + | [...] + + + + + | [facility] | [address] | [place] [address] | [phone] | | LABORATORY | [address] | | | + + + + + pH, body fluid (07/21/2018 2:00 PM) + + + + + | Component | Value | Ref Range | Performed At | + + + + + | FLUID PH | 7.48Comment: Testing | | [facility] | | | performed at [facility];[address] | | | | | [address];[place], [place] | | | | | [address] | | | + + + + [...] CAMPUS LAB[facility]ATORY | [address] | [place] [address] | | + + + + + Lactate dehydrogenase, body fluid (07/21/2018 2:00 PM) + + + + + | Component | Value | Ref Range | Performed At | + + + + + | FLUID LDH | 148Comment: This is not | U/L | [facility] | | | a typing bookkeeper validated | | LABORATORY | | | sample type for this | | | | | method. No reference | | | | | ranges have been | | | | | established.Testing | | | | | performed at [facility], [address] | | | | | [facility], | | | | | [place] [address] | | | + + + + + + + | Specimen | + + | Body Fluid - | | Thoracentesis Fluid | + + + + + + + | Performing | Address | City/State/Zipcode | Phone Number | | Organization | | | | + + + + + | [facility] | [address] | [place] [address] | [phone] | | LABORATORY | [facility]. | | | + + + + + Fluid total protein (Body fluid) (07/21/2018 2:00 PM) + + + + + | Component | Value | Ref Range | Performed At | + + + + + | FLUID TOTAL PROTEIN | 4.2Comment: This is not | g/dL | [facility] | | | a typing bookkeeper validated | | LABORATORY | | | sample type for this | | | | | method. No reference | | | | | ranges have been | | | | | established.Testing | | | | | performed at [facility], [address] | | | | | [facility], | | | | | [place] [address] | | | + + + + + | FLUID TP SOURCE | THORACENTESISComment: | | [facility] | | | Testing performed at | | | | | [facility];[address] | | | | | [facility];[place] [address] | | | + + + + [...] CAMPUS LABORATORY | [address] | [place] [address] | | + + + + + | [facility] | [address] | [place] [address] | [phone] | | LABORATORY | [address] | | | + + + + + Lactate dehydrogenase (07/21/2018 12:48 PM) + + + + + | Component | Value | Ref Range | Performed At | + + + + + | LDH | 351 (H)Comment: Testing | 120 - 246 U/L | [facility] | | | performed at [facility];[address] | | | | | [address];[place] | | | | | [address] | | | + + + + + + + | Specimen | + + | Blood | + + + + + + + | Performing | Address | City/State/Zipcode | Phone Number | | Organization | | | | + + + + + | [facility] | [address] | [place] [address] | | + + + + + Hepatic function panel (07/21/2018 12:48 PM) + + + + + | Component | Value | Ref Range | Performed At | + + + + + | TOTAL PROTEIN | 7.2 | 6.3 - 8.2 g/dL | [facility] | + + + + + | Albumin | 4.2 | 3.6 - 5.0 g/dL | [facility] | + + + + + | TBIL | 1.1 | 0.1 - 1.5 mg/dL | [facility] | + + + + + | BILI, DIRECT | 0.7 (H) | 0.0 - 0.3 mg/dL | [facility] | + + + + + | ALK PHOS | 154 (H) | 35 - 115 U/L | [facility] | + + + + + | AST | 159 (H) | 10 - 45 U/L | [facility] | + + + + + | ALT | 181 (H)Comment: Testing | 10 - 65 U/L | [facility] | | | performed at [facility];[address] | | | | | [address];[place] | | | | | [address] | | | + + + + + + + | Specimen | + + | Blood | + + + + + + + | Performing | Address | City/State/Zipcode | Phone Number | | Organization | | | | + + + + + | [facility] | [address] | [place] [address] | | + + + + + X-ray chest 1 view (07/21/2018 11:03 AM) + + + | Impressions | [...] | Cedric, Rad Results In - 07/21/2018 11:28 AM PDT [...] + + | [facility] | [address] | [place] [address] | | + + + + + US thoracentesis (includes imaging) (07/21/2018 10:38 AM) + + | Specimen | + + | Body Fluid | + + + + + | Narrative | Performed At | + + + | PROCEDURE Ultrasound-guided diagnostic and therapeutic right | [facility] | | thoracentesis. INDICATIONS Shortness of breath, [...] with arms on the | | | [id number] table. Ultrasound was utilized to tk an [...] possibility of "sound alike" | | | diamond die driller errors, addition and/or deletions may occur. If [...] at the bedside with arms on the [id number] | | table. Ultrasound was utilized to [...] recognition system. The possibility of "sound alike" diamond die driller errors, | | addition and/or deletions may [...] system. The possibility of "sound a like" diamond die driller errors, addition and/or deletions may occur. If there is any question a bout this report please contact the author of the report. | | | | | + + + + + + + | Performing | Address | City/State/Zipcode | Phone Number | | Organization | | | | + + + + + | [facility] | [address] | [place] [address] | | + + + + + Basic metabolic panel (07/21/2018 6:00 AM) + + + + + | [...] 9.7 | 8.5 - 10.5 mg/dL | [facility] | | | | | LABORATORY | [...] [facility], | | | | | [place] [address] | | | + + + + + + + | Specimen | + + | Blood | + + + + + + + | Performing | Address | City/State/Zipcode | Phone Number | | Organization | | | | + + + + + | [facility] | [address] | [place] [address] | [phone] | | LABORATORY | [address] | | | + + + + + CBC W/Auto Diff (Reflex to Manual) (07/21/2018 6:00 AM) + + + + + | Component | Value | Ref Range | Performed At | + + + + + | WBC | 4.91 | 3.80 - 11.00 K/uL | [facility] | | | | | LABORATORY | + + + + + | RBC | 3.00 (L) | 3.70 - 5.10 M/uL | [facility] | | | | | LABORATORY | + + + + + | HGB | 11.0 (L) | 11.3 - 15.5 g/dL | [facility] | | | | | LABORATORY | + + + + + | HCT | 33.2 (L) | 34.0 - 46.0 [...] + + + | RDW SD | 62.6 (H) | 37 - 53 fl | [facility] | | | | | LABORATORY | + + + + + | PLT | 153 | 150 - 400 K/uL | [facility] | | | | | LABORATORY | + + + + + | MPV | 10.4 | fl | [facility] | | | | | LABORATORY | + + + + + | DIFF TYPE | AUTOMATED | | [facility] | | | | | LABORATORY | + + + + + | NEUTROPHILS | 55.26 | % | [facility] | | | | | LABORATORY | + + + + + | LYMPHOCYTES | 25.63 | % | [facility] | | | | | LABORATORY | + + + + + | MONOCYTES | 9.69 | % | [facility] | | | | | LABORATORY | + + + + + | EOSINOPHILS | 8.28 | % | [facility] | | | | | LABORATORY | + + + + + | BASOPHILS | 1.14 | % | [facility] | | | | | LABORATORY | + + + + + | NEUTROPHILS ABS | 2.72 | 1.90 - 7.40 K/uL | [facility] | | | | | LABORATORY | + + + + + | LYMPHOCYTES ABS | 1.26 | 1.00 - 3.90 K/uL | [facility] | | | | | LABORATORY | + + + + + | MONOCYTES ABS | 0.48 | 0.00 - 0.80 K/uL | [facility] | | | | | LABORATORY | + + + + + | EOSINOPHILS ABS | 0.41 | 0.00 - 0.50 K/uL | [facility] | | | | | LABORATORY | + + + + + | BASOPHILS ABS | 0.06 | 0.00 - 0.10 K/uL | [facility] | | | | | LABORATORY | + + + + + | MORPHOLOGY | 2+Comment: | | [facility] | | | MACRO1+ANISONORMAL PLT | | LABORATORY | | | MORPHTesting performed | | | | | at [facility], [address] | | | | | [facility], | | | | | [place] [address] | | | | |Testing performed at [facility], [address] [place] [address] | | | | | | | | + + + + + + + | Specimen | + + | Blood | + + + + + + + | Performing | Address | City/State/Zipcode | Phone Number | | Organization | | | | + + + + + | [facility] | [address] | [place] [address] | [phone] | | LABORATORY | [address] | | | + + + + + Potassium (07/20/2018 4:25 PM) + + + + + | Component | Value | Ref Range | Performed At | + + + + + | POTASSIUM | 3.8Comment: Testing | 3.5 - 4.9 mmol/L | [facility] | | | performed at [facility];[address] | | | | | [address];[place] | | | | | [address] | | | + + + + + + + | Specimen | + + | Blood | + + + + + + + | Performing | Address | City/State/Zipcode | Phone Number | | Organization | | | | + + + + + | [facility] | [address] | [place] [address] | | + + + + + HEMODIALYSIS INPATIENT (07/20/2018 9:50 AM) + + + | Narrative | Performed At | + + + | Billie Gupta MD 07/20/2018 9:55 AM [facility] | | | [facility] Hemo-Dialysis Procedure note Pt is | | [...] | currently . QB 400 AP -230 [address] 200 | | | Constitutional: pt appears [...] treatment today. Modifications to orders: none Billie Hernandez. | | | MD Alonso 07/20/2018 | | + + + US chest (07/20/2018 9:05 AM) + + + | Impressions | Performed At | + + + | No left pleural fluid is seen. Large right pleural effusion was | [facility] | | not scanned. This looks easily drainable by ultrasound guidance. | RADIOLOGY | | Signed by: Eliza Bustos Shawn [...] + | [facility] | [address] | [place] [address] | | + + + + + aPTT (07/20/2018 6:25 AM) + + + + + | Component | Value | Ref Range | Performed At | + + + + + | APTT | 28Comment: Testing | 23 - 32 seconds | [facility] | | | performed at [facility];[address] | | | | | [address];[place] | | | | | [address] | | | + + + + + + + + + + | Performing | Address | City/State/Zipcode | Phone Number | | Organization | | | | + + + + + | [facility] | [address] | [place] [address] | | + + + + + Protime-INR (07/20/2018 6:25 AM) + + + + + | Component | Value | Ref Range | Performed At | + + + + + | INR | 1.6Comment: REFERENCE | | [facility] [place];[address] | | | | | [address];[place] | | | | | [address] | | | + + + + + + + + + + | Performing | Address | City/State/Zipcode | Phone Number | | Organization | | | | + + + + + | [facility] | [address] | [place] [address] | | + + + + + CBC W/Auto Diff (Reflex to Manual) (07/20/2018 6:25 AM) + + + + + | Component | Value | Ref Range | Performed At | + + + + + | WBC | 6.36 | 3.80 - 11.00 K/uL | [facility] | + + + + + | RBC | 3.57 (L) | 3.70 - 5.10 M/uL | [facility] | + + + + + | HGB | 12.8 | 11.3 - 15.5 g/dL | [facility] | + + + + + | HCT | 39.2 | 34.0 - 46.0 % | [facility] | + + + + + | MCV | 109.7 (H) | 80.0 - 100.0 fl | [facility] | + + + + + | MCH | 35.7 (H) | 27.0 - 34.0 pg | [facility] | + + + + + | MCHC | 32.6 | 32.0 - 35.5 g/dL | [facility] | + + + + + | RDW SD | 63.4 (H) | 37 - 53 fl | [facility] | + + + + + | PLT | 157 | 150 - 400 K/uL | [facility] | + + + + + | MPV | 9.6 | fl | [facility] | + + + + + | DIFF TYPE | AUTOMATED | | [facility] | + + + + + | NEUTROPHILS | 77.19 | % | [facility] | + + + + + | LYMPHOCYTES | 14.20 | % | [facility] | + + + + + | MONOCYTES | 6.31 | % | [facility] | + + + + + | EOSINOPHILS | 1.73 | % | [facility] | + + + + + | BASOPHILS | 0.57 | % | [facility] | + + + + + | NEUTROPHILS ABS | 4.91 | 1.90 - 7.40 K/uL | [facility] | + + + + + | LYMPHOCYTES ABS | 0.90 (L) | 1.00 - 3.90 K/uL | [facility] | + + + + + | MONOCYTES ABS | 0.40 | 0.00 - 0.80 K/uL | [facility] | + + + + + | EOSINOPHILS ABS | 0.11 | 0.00 - 0.50 K/uL | [facility] | + + + + + | BASOPHILS ABS | 0.04 | 0.00 - 0.10 K/uL | [facility] | + + + + + | MORPHOLOGY | 1+ | | [facility] | | | Comment: | | | | | MACRO | | | | | 1+ | | | | | ANISO | | | | | NORMAL PLT MORPH | | | | | | | | + + + + + | Platelet Estimate | ADEQUATEComment: Testing | | [facility] | | | performed at [facility];[address] | | | | | [address];[place] | | | | | [address] | | | + + + + + + + + + + | Performing | Address | City/State/Zipcode | Phone Number | | Organization | | | | + + + + + | [facility] | [address] | [place] [address] | | + + + + + Renal function panel (07/20/2018 6:25 AM) + + + + + | Component | Value | Ref Range | Performed At | + + + + + | SODIUM | 138 | 135 - 145 mmol/L | [facility] | + + + + + | POTASSIUM | 6.2 (H) | 3.5 - 4.9 mmol/L | [facility] | + + + + + | CHLORIDE | 98 (L) | 99 - 109 mmol/L | [facility] | + + + + + | CO2 | 25 | 23 - 32 mmol/L | [facility] | + + + + + | ANION GAP AGAP | 21 (H) | 5 - 20 mmol/L | [facility] | + + + + + | GLUCOSE | 50 (L) | 65 - 99 mg/dL | [facility] | + + + + + | BUN | 32 (H)Comment: ICTERIC | 8 - 25 mg/dL | [facility] | | | SPECIMEN | | | + + + + + | CREATININE | 5.65 (H)Comment: ICTERIC | 0.50 - 1.00 mg/dL | [facility] | | | SPECIMEN | | | + + + + + | CALCIUM | 9.7 | 8.5 - 10.5 mg/dL | [facility] | + + + + + | Albumin | 4.7 | 3.6 - 5.0 g/dL | [facility] | + + + + + | PHOSPHORUS | 8.0 (H)Comment: ICTERIC | 2.3 - 4.8 mg/dL | [facility] | | | SPECIMEN | | | + + + + [...] at [facility] | | | | | [facility];[place], [place] | | | | | [address] | | | + + + + + + + | Specimen | + + | Blood | + + + + + + + | Performing | Address | City/State/Zipcode | Phone Number | | Organization | | | | + + + + + | [facility] | [address] | [place] [address] | | + + + + + Troponin I (07/19/2018 11:48 AM) + + + + + | [...] performed at | | | | | [facility];[address] [place] [address] | | | | | [facility];[place] [address] | | | + + + + + + + | Specimen | + + | Blood | + + + + + + + | Performing | Address | City/State/Zipcode | Phone Number | | Organization | | | | + + + + + | [facility] | [address] | [place] [address] | | + + + + + [...] SPECIAL REQUESTS | RT FOREARM | | [facility] [...] + + + | [facility] | [address] | [place] [address] | [phone] | | LABORATORY | [address]vd[address] | | | + + + + + | [facility] | [address] | [place] [address] | | + + + + + Blood Culture Set 1 07/19/2018 8:53 AM) + + + + + | Component | Value | Ref Range | Performed At | + + + + + | Specimen Description | BLOOD, PERIPHERAL DRAW | | [facility] | | | | | LABORATORY | + + + + + | SPECIAL REQUESTS | RIGHT AC | | [facility] | + + [...] + + + | [facility] | [address] | [place] [address] | [phone] | | LABORATORY | [address] | | | + + + + + | [facility] | [address] | [place] [address] | | + + + + + CT chest without contrast (07/19/2018 8:51 AM) + + | Addenda | + + [...] + | Cedric, Rad Results In - 07/19/2018 9:[address] CHEST WITHOUT [...] [facility] | [address] | [place] [address] | | + + + + + Troponin I (07/19/2018 6:10 AM) + + + + + | Component | Value | Ref Range | Performed At | + + + + + | TROPONIN I | 0.102 (H)Comment: 0.04 | 0.00 - 0.04 ng/mL [...] performed at | | | | | [facility];[address] [place] [address] | | | | | [facility];[place] [address] | | | + + + + + + + | Specimen | + + | Blood | + + + + + + + | Performing | Address | City/State/Zipcode | Phone Number | | Organization | | | | + + + + + | [facility] | [address] | [place] [address] | | + + + + + Comprehensive Metabolic Panel (07/19/2018 6:10 AM) + + + + + | [...] | | | | | [place] [address] | | | + + + + + + + | Specimen | + + | Blood | + + + + + + + | Performing | Address | City/State/Zipcode | Phone Number | | Organization | | | | + + + + + | [facility] | [address] | [place] [address] | [phone] | | LABORATORY | [address] | | | + + + + + Phosphorus (07/19/2018 6:10 AM) + + + + + | Component | Value | Ref Range | Performed At | + + + + + | PHOSPHORUS | 6.3 (H)Comment: Testing | 2.3 - 4.8 mg/dL | [facility] | | | performed at [facility], [address] | | LABORATORY | | | [address], | | | | | [place] [address] | | | + + + + + + + | Specimen | + + | Blood | + + + + + + + | Performing | Address | City/State/Zipcode | Phone Number | | Organization | | | | + + + + + | [facility] | [address] | [place] [address] | [phone] | | LABORATORY | [address] | | | + + + + + Magnesium (07/19/2018 6:10 AM) + + + + + | Component | Value | Ref Range | Performed At | + + + + + | MAGNESIUM | 2.6 (H)Comment: Testing | 1.7 - 2.4 mg/dL | [facility] | | | performed at [facility], [address] | | LABORATORY | | | [address], | | | | | [place] [address] | | | + + + + + + + | Specimen | + + | Blood | + + + + + + + | Performing | Address | City/State/Zipcode | Phone Number | | Organization | | | | + + + + + | [facility] | [address] | [place] [address] | [phone] | | LABORATORY | [address] | | | + + + + + CBC W/Auto Diff (Reflex to Manual) (07/19/2018 6:10 AM) + + + + + | Component | Value | Ref Range | Performed At | + + + + + | WBC | 4.03 | 3.80 - 11.00 K/uL | [facility] | | | | | LABORATORY | + + + + + | RBC | 3.20 (L) | 3.70 - 5.10 M/uL | [facility] | | | | | LABORATORY | + + + + + | HGB | 11.7 | 11.3 - 15.5 g/dL | [facility] | | | | | LABORATORY | + + + + + | HCT | 35.4 | 34.0 - 46.0 % | [facility] | | | | | LABORATORY | + + + + + | MCV | 110.5 (H) | 80.0 - 100.0 fl | [...] + + + | RDW SD | 64.3 (H) | 37 - 53 fl | [facility] | | | | | LABORATORY | + + + + + | PLT | 140 (L) | 150 - 400 K/uL | [facility] | | | | | LABORATORY | + + + + + | MPV | 9.2 | fl | [facility] | | | | | LABORATORY | + + + + + | DIFF TYPE | AUTOMATED | | [facility] | | | | | LABORATORY | + + + + + | NEUTROPHILS | 67.10 | % | [facility] | | | | | LABORATORY | + + + + + | LYMPHOCYTES | 18.23 | % | [facility] | | | | | LABORATORY | + + + + + | MONOCYTES | 9.05 | % | [facility] | | | | | LABORATORY | + + + + + | EOSINOPHILS | 4.82 | % | [facility] | | | | | LABORATORY | + + + + + | BASOPHILS | 0.80 | % | [facility] | | | | | LABORATORY | + + + + + | NEUTROPHILS ABS | 2.70 | 1.90 - 7.40 K/uL | [facility] | | | | | LABORATORY | + + + + + | LYMPHOCYTES ABS | 0.74 (L) | 1.00 - 3.90 K/uL | [facility] | | | | | LABORATORY | + + + + + | MONOCYTES ABS | 0.37 | 0.00 - 0.80 K/uL | [facility] | | | | | LABORATORY | + + + + + | EOSINOPHILS ABS | 0.19 | 0.00 - 0.50 K/uL | [facility] | | | | | LABORATORY | + + + + + | BASOPHILS ABS | 0.03 | 0.00 - 0.10 K/uL | [facility] | | | | | LABORATORY | + + + + + | MORPHOLOGY | 1+Comment: | | [facility] | | | MACRO2+ANISONORMAL PLT | | LABORATORY | | | MORPHTesting performed | | | | | at [facility], [address] | | | [address], | | | | | [place] [address] | | | | |Testing performed at [facility], [address] [place] [address] | | | | | | | | + + + + + + + | Specimen | + + | Blood | + + + + + + + | Performing | Address | City/State/Zipcode | Phone Number | | Organization | | | | + + + + + | [facility] | [address] | [place] [address] | [phone] | | LABORATORY | [address] | | | + + + + + Septic Lactic Acid (07/19/2018 6:10 AM) + + + + + | Component | Value | Ref Range | Performed At | + + + + + | LACTIC ACID | 0.8Comment: INSTRUMENT | 0.4 - 2.0 mmol/L | [facility] | | | ERROR. NOTIFIED 4RP AT | | | | | 1230 BY TMBTesting | | | | | performed at [facility];[address] | | [address];[place], [place] | | | | | [id number] ON 07/19 | | | | | AT 1233: PREVIOUSLY | | | | | REPORTED <0.1 | | | + + + + + + + + + + | Performing | Address | City/State/Zipcode | Phone Number | | Organization | | | | + + + + + | [facility] | [address] | [place] [address] | | + + + + + MRSA by PCR (07/19/2018 1:34 AM) + + + + + | Component | Value | Ref Range | Performed At | + + + + + | SOURCE | NARES(NOSE) | | [facility] | + + + + + | MRSA PCR | NEGATIVEComment: Testing | NEGATIVE | [facility] | | | performed at [facility] | | | | | [address];[place], [place] | | | | | [address] | | | + + + + + + + | Specimen | + + | Nasal - Nares(Nose) | + + + + + + + | Performing | Address | City/State/Zipcode | Phone Number | | Organization | | | | + + + + + | [facility] | [address] | [place] [address] | | + + + + + Respiratory Filmarray (07/19/2018 1:32 AM) + + + + + | [...] | | | | | TCL, [address] | | | | | [place], [place] | | | | | [address] | | | + + + + + + + | Specimen | + + | Nasopharyngeal | | Culture | + + + + + + + | Performing | Address | City/State/Zipcode | Phone Number | | Organization | | | | + + + + + | [facility] | [address] | [place] [address] | [phone] | | LABORATORY | [address] | | | + + + + + Septic Lactic Acid (07/19/2018 12:38 AM) + + + + + | Component | Value | Ref Range | Performed At | + + + + + | LACTIC ACID | 0.6Comment: Testing | 0.4 - 2.0 mmol/L | [facility] | | | performed at [facility] | | | | | [address] [facility];[place], [place] | | | | | [address] | | | + + + + + + + + + + | Performing | Address | City/State/Zipcode | Phone Number | | Organization | | | | + + + + + | [facility] | [address] | [place] [address] | | + + + + + PROCALCITONIN (07/19/2018 12:35 AM) + + + + + | Component | Value | Ref Range | Performed At | + + + + + | PROCALCITONIN | 0.81 (H)Comment: | <0.5 ng/mL | [facility] | | | INTERPRETIVE | [...] performed | | | | | at [facility] [address] | | | | | [facility];[place] [address] | | | + + + + + + + + + + | Performing | Address | City/State/Zipcode | Phone Number | | Organization | | | | + + + + + | [facility] | [address] | [place] [address] | | + + + + + test, serum (07/19/2018 12:35 AM) + + + + + | Component | Value | Ref Range | Performed At | + + + + + | TEST,SERUM | NEGATIVEComment: Testing | NEGATIVE | [facility] | | | performed at [facility];[address] | | | [address];[place] | | | | | [address] | | | + + + + + + + + + + | Performing | Address | City/State/Zipcode | Phone Number | | Organization | | | | + + + + + | [facility] | [address] | [place] [address] | | + + + + + Troponin I (07/19/2018 12:35 AM) + + + + + | [...] performed at | | | | | [facility];[address] [place] [address] | | | | | [facility];[place] [address] | | | + + + + + + + | Specimen | + + | Blood | + + + + + + + | Performing | Address | City/State/Zipcode | Phone Number | | Organization | | | | + + + + + | [facility] | [address] | [place] [address] | | + + + + + ED INFORMATION EXCHANGE (07/18/2018 10:47 PM) + + + | Narrative | Performed At | + + + | [id number] Criteria Met Care | ED | | Guidelines in 12 2 in 2 Security and Safety No | INFORMATION | | recent Security Events currently on file ED Care Guidelines There | EXCHANGE | | are currently no ED Care Guidelines for this patient. Please check | | | your facility's medical records system. Care History | | | Medical/Surgical 05/28/18 12:00 AM [facility] | | | Patient is currently established with [facility]. If | | | patient is seen in the ED during business hours. Please contact CHWs | | | at [facility]. Care Recommendation: This patient has [...] (12 mo.) Facility Visits Low Acuity [facility] | | | Center [address] [...] Diagnoses or Chief Complaint July 18, 2018 [facility]. | | | [place] Emergency Cough Pneumonia July 18, 2018 | | | [facility] Emergency Chief Complaint: SINUS | | | CONGESTION/ FEVER Jun 19, 2018 [facility] 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 | | | Emergency Shortness of breath Fluid overload, | | | unspecified Hyperkalemia Radiographic dye allergy status | | | Allergy status to narcotic agent status Other mcfp | | | (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 Allergy status to other drugs, | | | medicaments and biological substances status Jun 11, [address] [facility] [address] | | | [place] Emergency Chronic pulmonary edema | | | Shortness of breath Radiographic dye allergy status | | | Personal history of nicotine dependence Other mcfp | | | (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 director long term care (current) use of opiate | | | analgesic Jun 04, 2018 [facility] Emergency | | | Shortness of breath Dyspnea, unspecified | | | Respiratory syncytial virus as the cause of diseases classified | | | elsewhere Allergy status to other drugs, medicaments and | | | biological substances status Radiographic dye allergy status | | | Other mcfp (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 Allergy status to | | | narcotic agent status May 26, 2018 [facility] | | | Emergency Chest pain, unspecified Acute respiratory | | | distress Other ascites Pleural effusion, not elsewhere | | | classified May 26, 2018 [facility] [place] | | | Emergency Allergy status to other drugs, medicaments and | | | biological substances status Other mcfp (current) drug | | | therapy Radiographic dye allergy status Dependence on | | | renal dialysis Pleural effusion, not elsewhere classified | | | Allergy status to narcotic agent status Shortness of | | | breath May 25, 2018 [facility] [place] Emergency | | | Dependence on renal dialysis Shortness of breath | | | Allergy status to narcotic agent status Pneumonia, unspecified | | | organism Other mcfp (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 | | | Radiographic dye allergy status Pleural effusion, not elsewhere | | | classified Allergy status to other drugs, medicaments and | | | biological substances status May 10, 2018 [facility] [place] [facility]. | | | [place] Emergency Epistaxis Other mcfp | | | (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 End [...] 26, 2018 [facility] | | | [facility] General Medicine Acute respiratory distress | | [...] 28, 2018 - | | | Current Collective Portal This patient has registered at the | | | [facility] Emergency Department For more | | | information visit: | | | [email or web address] | | | [email or web address] andnbsp PLEASE NOTE: [...] | | completeness of information provided. 2019 [employer] | | | [place] Everywhere. - [email or web address] | | + + + + + | Procedure Note | + + | Interface, Lab - 07/18/2018 10:48 PM PDT Formatting of this note may be different | | from the original.[id number] [facility] Care Guidelines 10 in | | 12 2 in 2Security and SafetyNo recent Security Events currently on fileED Care | | GuidelinesThere are currently no ED Care Guidelines for this patient. Please check your | | facility's medical records system.Care HistoryMedical/Surgical05/28/18 12:00 AM [facility] [place]. | | [facility] Patient is currently established with [facility]. If patient is | | seen in the ED during business hours. Please contact CHWs at [facility].Care | | Recommendation:This patient has had [...] | Count (12 mo.)Facility Visits Low Acuity [facility] 2 0 [facility] [place]. | | [facility] 10 0 Total 12 0 Note: Visits [...] Chief Complaint July 18, 2018 | | [facility] [place] Emergency Cough Pneumonia July 18, 2018 [facility] | | [place] Emergency Chief Complaint: SINUS CONGESTION/ FEVER Jun 19, 2018 | | [facility] [place] Emergency Other chest pain End stage renal disease | | Dependence on renal dialysis Personal history of nicotine dependence Fluid | | overload, unspecified Heart failure, unspecified director long term care (current) use of opiate | | analgesic Allergy status to other drugs, medicaments and biological substances | | status Radiographic dye allergy status Other mcfp (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 Apr | | 2018 [facility] [place] Emergency Shortness of breath Fluid | | overload, unspecified Hyperkalemia Radiographic dye allergy status Allergy | | status to narcotic agent status Other mcfp (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 Allergy | | status to other drugs, medicaments and biological substances status Jun 11, 2018 [facility] [place]. | | [place] Emergency Chronic pulmonary edema Shortness of breath | | Radiographic dye allergy status Personal history of nicotine dependence Other long | | term (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 detention (current) use of opiate analgesic Jun 04, 2018 | | [facility] [place] Emergency Shortness of breath Dyspnea, unspecified | | Respiratory syncytial virus as the cause of diseases classified elsewhere Allergy | | status to other drugs, medicaments and biological substances status Radiographic dye | | allergy status Other terminal block assembler (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 Allergy status to narcotic | | agent status May 26, 2018 [facility] [place] Emergency Chest pain, | | unspecified Acute respiratory distress Other ascites Pleural effusion, not | | elsewhere classified May 26, 2018 [facility] [place] Emergency Allergy | | status to other drugs, medicaments and biological substances status Other mcfp | | (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 Radiographic dye allergy status Dependence on renal | | dialysis Pleural effusion, not elsewhere classified Allergy status to narcotic | | agent status Shortness of breath May 25, 2018 [facility] [place] Emergency | | Dependence on renal dialysis Shortness of breath Allergy status to narcotic | | agent status Pneumonia, unspecified organism Other mcfp (current) drug | | therapy Radiographic dye allergy status Pleural effusion, not elsewhere classified | | Allergy status to other drugs, medicaments and biological substances status May 10 | | 2018 [facility] [place] Emergency Epistaxis Other terminal block assembler (current) | | drug therapy End stage [...] renal disease Recent Inpatient Visit SummaryDate Facility City State Type | | Diagnoses or Chief [facility] [place] [facility] | | Medicine Acute respiratory distress Chest pain, unspecified Pleural effusion, | | not elsewhere classified Other ascites Dependence on renal dialysis | | Hyperkalemia Other disorders of phosphorus metabolism End stage renal disease | | Other specified personal risk factors, not elsewhere classified Acute systolic | | (congestive) heart failure Care ProvidersProvider [place] Type Phone Fax Service Dates | | TIEN NICHOLSON MD Hospitalist May 28, 2018 - Current Planview PortalThis | | patient has registered at the [facility] Emergency Department For | | more information visit: | | [email or web address] andsp | | PLEASE NOTE: 1. Any [...] or completeness of information | | provided.2019 [employer]. - [email or web address] | | Other terminal block assembler (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 | | director long term care (current) use of opiate analgesic | | | |Jun 04, 2018 [facility] [place] Emergency | | Shortness of breath | | Dyspnea, unspecified | | Respiratory syncytial virus as the cause of diseases classified elsewhere | | Allergy status to other drugs, medicaments and biological substances status | | Radiographic dye allergy status | | Other terminal block assembler (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 | | Allergy status to narcotic agent status | | | |May 26, 2018 [facility] | | Chest pain, unspecified | | Acute respiratory distress | | Other ascites | | Pleural effusion, not elsewhere classified | | | |May 26, 2018 [facility] [place] Emergency | | Allergy status to other drugs, medicaments and biological substances status | | Other terminal block assembler (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 | | Radiographic dye allergy status | | Dependence on renal dialysis | | Pleural effusion, not elsewhere classified | | Allergy status to narcotic agent status | | Shortness of breath | | | |May 25, 2018 [facility] [place] Emergency | | Dependence on renal dialysis | | Shortness of breath | | Allergy status to narcotic agent status | | Pneumonia, unspecified organism | | Other mcfp (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 | | Radiographic dye allergy status | | Pleural effusion, not elsewhere classified | | Allergy status to other drugs, medicaments and biological substances status | | | |May 10, 2018 [facility] [place] Emergency | | Epistaxis | | Other terminal block assembler (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 | | End stage [...] or Chief Complaint | |May 26, 2018 [facility] General Medicine | | Acute respiratory [...] Emergency Department | |For more information visit: [email or web address] | |andnbsp PLEASE NOTE: | | 1. [...] of information provided. | | | |2019 [employer]. - [email or web address] | + + + +---------+ + + | Performing | Address | City/State/Zipcode | Phone Number | | Organization | | | | + +---------+ + + | ED INFORMATION | | | | | EXCHANGE | | | | + +---------+ + + in this encounter Visit Diagnoses + + | Diagnosis | + + | Sepsis (HCC) - Primary | + + | Unspecified septicemia | + + | Febrile illness | + + | Fever, unspecified | + + | Recurrent pleural effusion on right | + + | Unspecified pleural effusion | + + | Hypoxia | + + | Hypoxemia | + + | History of [...] pulmonary heart diseases | + + | Chronic right-sided heart failure (HCC) | + + | Congestive heart failure, unspecified | + + | Pleural effusion on right | + + | Unspecified pleural effusion | + + | Acute hypoxemic respiratory failure (HCC) | + + | Dilated cardiomyopathy (HCC) | + + | Other primary cardiomyopathies | + + | SOB (shortness of breath) | + + | Shortness of breath | + + | Non-rheumatic mitral regurgitation | + + | Hypertension | + + | Unspecified essential hypertension | + + | Pancytopenia (HCC) | + + | Other pancytopenia | + + | Chest pain | + + | Chest pain, unspecified | + + | Other ascites | + + | Troponin I above reference range | + + | Other abnormal blood chemistry | + + Admitting Diagnoses + + | Diagnosis | + + | Chronic right-sided heart failure (HCC) | + + | Congestive heart failure, unspecified | + + | Hypoxia | + + | Hypoxemia | + + | Anemia in ESRD (end-stage renal disease) (HCC) | + + | Anemia in chronic kidney disease | + + | Pleural effusion on right | + + | Unspecified pleural effusion | + + | Moderate to severe pulmonary hypertension (HCC) | + + | Other chronic pulmonary heart diseases | + + | Febrile illness | + + | Fever, unspecified | + + | ESRD on hemodialysis (HCC) | + + | End stage renal disease | + + | Recurrent pleural effusion on right | + + | Unspecified pleural effusion | + + | History of end stage renal disease | + + Administered [...] | | | Pain (1-3), Fever, Starting Little | | | 07/19/18 at 0110 | | + +---+ | | | + +---+ + +-------+ +--------+---+---+ | acetaminophen (TYLENOL) tablet | Given | | 650 mg | | | | 650 mg 650 mg, Oral, Every 6 | | 9 14:55 | | | | | Hours PRN, Mild Pain (1-3), | | PDT | | | | | Fever, Starting Little 07/19/18 at | | | | | | | 0110 | | | | | | + +-------+ +--------+---+---+ +-------+ +--------+---+---+ | Given | | 650 mg | | | | | 9 11:41 | | | | | | PDT | | | | +-------+ +--------+---+---+ | Given | | 650 mg | | | | | 9 11:58 | | | | | | PDT | | | | +-------+ +--------+---+---+ +---+---+ | | | +---+---+ + +---------+ +--------+---+---+ | albumin human 25 % solution | New Bag | | 12.5 g | | | | 12.5 g 12.5 g, Intravenous, | | 9 14:45 | | | | | Every 1 Hour PRN, Other, for | | PDT | | | | | cramps or hypotension during | | | | | | | dialysis., Starting 07/23/18 | | | | | | | at 1149, DIALYSIS | | | | | | + +---------+ +--------+---+---+ +---+---+ | | | +---+---+ + +-------+ +-------+---+---+ | atorvastatin (LIPITOR) tablet | Given | | 40 mg | | | | 40 mg 40 mg, Oral, Nightly, | | 9 20:36 | | | | | First dose on [facility] 07/19/18 at 0330 | | PDT | | | | + +-------+ +-------+---+---+ +-------+ +-------+---+---+ | Given | | 40 mg | | | | | 9 20:36 | | | | | | PDT | | | | +-------+ +-------+---+---+ | Given | | 40 mg | | | | | 9 21:12 | | | | | | PDT | | | | +-------+ +-------+---+---+ +---+---+ | | | +---+---+ + +-------+ +--------+---+---+ | cefdinir (OMNICEF) capsule 300 | Given | | 300 mg | | | | mg 300 mg, Oral, Every 48 Hours, | | 9 17:01 | | | | | First dose on Mon07/23/18 at | | PDT | | | | | 0830, Indications: Sepsis of | | | | | | | Unknown Etiology | | | | | | + +-------+ +--------+---+---+ +---+---+ | | | +---+---+ + +-------+ +-----+-------+---+ | ceFEPIme (MAXIPIME) 1 g in | Given | | 1 g | 100 | | | sodium chloride (IV) 0.9 % 50 mL | | 9 02:12 | | mL/hr | | | IVPB 1 g, Intravenous, | | PDT | | | | | Administer over 30 Minutes, Every | | | | | | | 24 Hours, First dose on Little | | | | | | | 07/19/18 at 0200 | | | | | | + +-------+ +-----+-------+---+ +-------+ +-----+-------+---+ | Given | | 1 g | 100 | | | | 9 01:01 | | mL/hr | | | | PDT | | | | +-------+ +-----+-------+---+ | Given | | 1 g | 100 | | | | 9 02:06 | | mL/hr | | | | PDT | | | | +-------+ +-----+-------+---+ +---+---+ | | | +---+---+ + +-------+ +-----+-------+---+ | cefTRIAXone (ROCEPHIN) IVPB 1 g | Given | | 1 g | 100 | | | 1 g, Intravenous, Administer | | 9 10:16 | | mL/hr | | | over 30 Minutes, Every 24 Hours, | | PDT | | | | | First dose on [place] 07/22/18 at 1000 | | | | | | + +-------+ +-----+-------+---+ +---+---+ | | | +---+---+ + +-------+ +-------+---+---+ | clopidogrel (PLAVIX) tablet 75 | Given | | 75 mg | | | | mg 75 mg, Oral, Daily, First | | 9 08:33 | | | | | dose on [facility] 07/19/18 at 0900 | | PDT | | | | + +-------+ +-------+---+---+ +-------+ +-------+---+---+ | Given | | 75 mg | | | | | 9 07:43 | | | | | | PDT | | | | +-------+ +-------+---+---+ | Given | | 75 mg | | | | | 9 08:47 | | | | | | PDT | | | | +-------+ +-------+---+---+ +---+---+ | | | +---+---+ + +-------+ +-------+---+---+ | diphenhydrAMINE (BENADRYL) | Given | | 25 mg | | | | capsule 25 mg 25 mg, Oral, Every | | 9 18:25 | | | | | 6 Hours PRN, Itching, Starting | | PDT | | | | | Little 07/19/18 at 1741 | | | | | | + +-------+ +-------+---+---+ +---+---+ | | | +---+---+ + +-------+ +-------+---+---+ | diphenhydrAMINE (BENADRYL) | Given | | 50 mg | | | | capsule 50 mg 50 mg, Oral, Every | | 9 15:48 | | | | | 6 Hours PRN, Itching, Starting | | PDT | | | | | Little 07/19/18 at 1935 | | | | | | + +-------+ +-------+---+---+ +-------+ +-------+---+---+ | Given | | 50 mg | | | | | 9 23:20 | | | | | | PDT | | | | +-------+ +-------+---+---+ | Given | | 50 mg | | | | | 9 07:42 | | | | | | PDT | | | | +-------+ +-------+---+---+ +---+---+ | | | +---+---+ + +-------+ +--------+---+-------+ | heparin (porcine) 1000 unit/mL | Given | | 3,000 | | Other | | injection 3,000 Units 3,000 | | 9 09:18 | Units | | | | Units, Intracatheter, Once In | | PDT | | | | | Dialysis, [facility] 07/20/18 at 0930, | | | | | | | For 1 dose, DIALYSIS | | | | | | + +-------+ +--------+---+-------+ +---+---+ | | | +---+---+ + +-------+ +--------+---+---+ | heparin (porcine) 1000 unit/mL | Given | | 3,000 | | | | injection 3,000 Units 3,000 | | 9 12:34 | Units | | | | Units, Intracatheter, Once In | | PDT | | | | | Dialysis, [facility] 07/23/18 at 1230, | | | | | | | For 1 dose, DIALYSIS | | | | | | + +-------+ +--------+---+---+ +---+---+ | | | +---+---+ + +-------+ +-------+---+-------+ | heparin (porcine) 1000 unit/mL | Given | | 500 | | Other | | injection 500 Units 500 Units, | | 9 09:23 | Units | | | | Intracatheter, Every 1 Hour PRN, | | PDT | | | | | HOURLY dose with dialysis only, | | | | | | | Starting Mon07/20/18 at 0859, For | | | | | | | 6 hours, DIALYSIS | | | | | | + +-------+ +-------+---+-------+ +---+---+ | | | +---+---+ + +-------+ +-------+---+---+ | heparin (porcine) 1000 unit/mL | Given | | 500 | | | | injection 500 Units 500 Units, | | 9 12:37 | Units | | | | Intracatheter, Every 1 Hour PRN, | | PDT | | | | | HOURLY dose with dialysis only, | | | | | | | Starting Mon07/23/18 at 1149, For | | | | | | | 2 hours, DIALYSIS | | | | | | + +-------+ +-------+---+---+ +---+---+ | | | +---+---+ + +-------+ +--------+---+---+ | HYDROmorphone (DILAUDID) | Given | | 0.5 mg | | | | injection 0.5 mg 0.5 mg, | | 9 11:41 | | | | | Intravenous, Every 3 Hours PRN, | | PDT | | | | | Moderate Pain (4-6), Starting Little | | | | | | | 07/19/18 at 1244 | | | | | | + +-------+ +--------+---+---+ +---+---+ | | | +---+---+ + +-------+ +------+---+---+ | HYDROmorphone (DILAUDID) | Given | | 1 mg | | | | injection 1 mg 1 mg, | | 9 01:44 | | | | | Intravenous, Every 3 Hours PRN, | | PDT | | | | | Severe Pain (7-10), Starting Little | | | | | | | 07/19/18 at 1244 | | | | | | + +-------+ +------+---+---+ +-------+ +------+---+---+ | Given | | 1 mg | | | | | 9 05:04 | | | | | | PDT | | | | +-------+ +------+---+---+ | Given | | 1 mg | | | | | 9 08:47 | | | | | | PDT | | | | +-------+ +------+---+---+ +---+---+ | | | +---+---+ + +-------+ +-------+---+---+ | ipratropium-albuterol (DUO-NEB) | Given | | 3 mLs | | | | 0.5-2.5 mg/3mL nebulizer | | 9 16:37 | | | | | solution 3 mL 3 mL, | | PDT | | | | | Nebulization, Every 6 Hours, | | | | | | | First dose on [facility] 07/19/18 at 0130 | | | | | | + +-------+ +-------+---+---+ +-------+ +-------+---+---+ | Given | | 3 mLs | | | | | 9 23:33 | | | | | | PDT | | | | +-------+ +-------+---+---+ | Given | | 3 mLs | | | | | 9 05:18 | | | | | | PDT | | | | +-------+ +-------+---+---+ +---+---+ | | | +---+---+ + +-------+ +--------+---+---+ | LORazepam (ATIVAN) injection | Given | | 0.5 mg | | | | 0.5 mg 0.5 mg, Intravenous, | | 9 04:36 | | | | | Once, [facility] 07/19/18 at 0430, For 1 | | PDT | | | | | dose | | | | | | + +-------+ +--------+---+---+ +---+---+ | | | +---+---+ + +-------+ +-------+---+---+ | metoprolol (TOPROL-XL) 24 hr | Given | | 50 mg | | | | tablet 50 mg 50 mg, Oral, Daily, | | 9 19:35 | | | | | First dose on [facility] 07/19/18 at | | PDT | | | | | 0230 | | | | | | + +-------+ +-------+---+---+ +-------+ +-------+---+---+ | Given | | 50 mg | | | | | 9 20:36 | | | | | | PDT | | | | +-------+ +-------+---+---+ | Given | | 50 mg | | | | | 9 21:11 | | | | | | PDT | | | | +-------+ +-------+---+---+ +---+---+ | | | +---+---+ + +-------+ +------+---+---+ | ondansetron (ZOFRAN) injection | Given | | 4 mg | | | | 4 mg 4 mg, Intravenous, Every 6 | | 9 23:20 | | | | | Hours PRN, Nausea, Vomiting, | | PDT | | | | | Starting [facility] 07/19/18 at 0110 | | | | | | + +-------+ +------+---+---+ +-------+ +------+---+---+ | Given | | 4 mg | | | | | 9 12:25 | | | | | | PDT | | | | +-------+ +------+---+---+ | Given | | 4 mg | | | | | 9 17:56 | | | | | | PDT | | | | +-------+ +------+---+---+ +---+---+ | | | +---+---+ + +-------+ +------+---+---+ | ondansetron (ZOFRAN) injection | Given | | 4 mg | | | | 4 mg 4 mg, Intravenous, Once, | | 9 23:58 | | | | | 07/18/18 at 2358, For 1 dose | | PDT | | | | + +-------+ +------+---+---+ + +---+ | | | + +---+ | ondansetron (ZOFRAN-ODT) | | | disintegrating tablet 4 mg 4 mg, | | | Oral, Every 6 Hours PRN, Nausea, | | | Vomiting, Starting Little 07/19/18 | | | at 0110 | | + +---+ | | | + +---+ + +-------+ +-------+---+---+ | pantoprazole (PROTONIX) EC | Given | | 40 mg | | | | tablet 40 mg 40 mg, Oral, Every | | 9 05:40 | | | | | Morning Before Breakfast, First | | PDT | | | | | dose on [facility] 07/19/18 at 0630 | | | | | | + +-------+ +-------+---+---+ +-------+ +-------+---+---+ | Given | | 40 mg | | | | | 9 06:07 | | | | | | PDT | | | | +-------+ +-------+---+---+ | Given | | 40 mg | | | | | 9 06:31 | | | | | | PDT | | | | +-------+ +-------+---+---+ +---+---+ | | | +---+---+ + +-------+ +-------+---+---+ | predniSONE (DELTASONE) tablet | Given | | 60 mg | | | | 60 mg 60 mg, Oral, Daily With | | 9 17:37 | | | | | Breakfast, First dose on Sun | | PDT | | | | | 07/22/18 at 1700 | | | | | | + +-------+ +-------+---+---+ +-------+ +-------+---+---+ | Given | | 60 mg | | | | | 9 07:42 | | | | | | PDT | | | | +-------+ +-------+---+---+ | Given | | 60 mg | | | | | 9 08:46 | | | | | | PDT | | | | +-------+ +-------+---+---+ +---+---+ | | | +---+---+ + +-------+ +---------+-------+---+ | promethazine (PHENERGAN) IVPB | Given | | 12.5 mg | 100 | | | 12.5 mg 12.5 mg, Intravenous, | | 9 18:20 | | mL/hr | | | Administer over 15 Minutes, Every | | PDT | | | | | 6 Hours PRN, Nausea, Vomiting, | | | | | | | Starting [facility] 07/19/18 at 1741, | | | | | | | When ordered with ondansetron, | | | | | | | use promethazine as second | | | | | | | treatment choice. | | | | | | + +-------+ +---------+-------+---+ +-------+ +---------+-------+---+ | Given | | 12.5 mg | 100 | | | | 9 03:20 | | mL/hr | | | | PDT | | | | +-------+ +---------+-------+---+ | Given | | 12.5 mg | 100 | | | | 9 22:22 | | mL/hr | | | | PDT | | | | +-------+ +---------+-------+---+ +---+---+ | | | +---+---+ + +-------+ +---------+-------+---+ | promethazine (PHENERGAN) IVPB | Given | | 6.25 mg | 100 | | | 6.25 mg 6.25 mg, Intravenous, | | 9 07:55 | | mL/hr | | | Administer over 15 Minutes, Once, | | PDT | | | | | Little 07/19/18 at 0700, For 1 dose, | | | | | | | When ordered with ondansetron, | | | | | | | use promethazine as second | | | | | | | treatment choice. | | | | | | + +-------+ +---------+-------+---+ +---+---+ | | | +---+---+ + +-------+ + +---+---+ | sevelamer (RENVELA) tablet | Given | | 1,600 mg | | | | 1,600 mg 1,600 mg, Oral, 3 Times | | 9 08:06 | | | | | Daily With Meals, First dose on | | PDT | | | | | Little 07/19/18 at 0800 | | | | | | + +-------+ + +---+---+ +-------+ + +---+---+ | Given | | 1,600 mg | | | | | 9 20:44 | | | | | | PDT | | | | +-------+ + +---+---+ +---+---+ | | | +---+---+ + +-------+ + +---+---+ | sevelamer (RENVELA) tablet | Given | | 2,400 mg | | | | 2,400 mg 2,400 mg, Oral, 3 Times | | 9 06:57 | | | | | Daily With Meals, First dose on | | PDT | | | | | 07/20/18 at 1200 | | | | | | + +-------+ + +---+---+ +-------+ + +---+---+ | Given | | 2,400 mg | | | | | 9 17:01 | | | | | | PDT | | | | +-------+ + +---+---+ | Given | | 2,400 mg | | | | | 9 06:33 | | | | | | PDT | | | | +-------+ + +---+---+ +---+---+ | | | +---+---+ + +-------+ +--------+---+---+ | sodium chloride (PF) 0.9 % | Given | | 10 mLs | | | | flush 10 mL 10 mL, Intravenous, | | 9 20:35 | | | | | Every 8 Hours, First dose on Little | | PDT | | | | | 07/19/18 at 0130 | | | | | | + +-------+ +--------+---+---+ +-------+ +--------+---+---+ | Given | | 10 mLs | | | | | 9 07:46 | | | | | | PDT | | | | +-------+ +--------+---+---+ | Given | | 10 mLs | | | | | 9 17:02 | | | | | | PDT | | | | +-------+ +--------+---+---+ +---+---+ | | | +---+---+ + +-------+ +-------+---+---+ | valsartan (DIOVAN) tablet 40 mg | Given | | 40 mg | | | | 40 mg, Oral, Daily, First dose | | 9 08:32 | | | | | on Little 07/19/18 at 0900 | | PDT | | | | + +-------+ +-------+---+---+ +-------+ +-------+---+---+ | Given | | 40 mg | | | | | 9 07:43 | | | | | | PDT | | | | +-------+ +-------+---+---+ | Given | | 40 mg | | | | | 9 08:47 | | | | | | PDT | | | | +-------+ +-------+---+---+ +---+---+ | | | +---+---+ in this encounter
--- OUTSIDE RECORDS SUMMARY | ~2018-08-13 | XMS | Encounter Summary ---
Demographics + + + | Address | [address] | | | [place] [address] | + + + | Home Phone [...] Author | [facility] | | | and Josephana | + + + | Organization | [facility] | | | [...] Providers + +------+ + | Care Assembly Supervisor Name | Role | Phone | [...] | | KIDNEY TRANSPLANT | [address], | | | | | [address] [facility] | [place] [address] | | | | | [address] [place] | [phone] | | | | | [address] | | | | | | [phone] | | | +--------+ + + + [...]
--- OUTSIDE RECORDS SUMMARY | ~2018-08-13 | XMS | Encounter Summary ---
Demographics + + + | Address | [address] | | | [place] [address] | + + + | Home Phone [...] | | | | | [place] [address] | | + + + + + | Thania Mallory | ECON | [address] | | | | | [place] [address] | | + + + + + | Deidra Weldon | ECON | [address] | | | | | [place] | | | | | [address] | | + + + + + Care Team Providers + +------+ + | Care B2B Sales Executive Name | Role | Phone | [...] | | | | | [address] | [facility] | | | | | Road [place], [place] | [place], [place] | | | | | [address] | [address] | | | | | [phone] | | | +--------+ + + + [...] Denise | | | | | | [place] | | | | | | [address] | | | | | | [phone] | | | | | | | | +--------+ + + + + documented as of this encounter Visit Diagnoses Not on filedocumented in this encounter"
--- OUTSIDE RECORDS SUMMARY | ~2018-08-13 | XMS | Encounter Summary ---
Demographics + + + | Address | [address] | | | [place] [address] | + + + | Home Phone [...] | | | | | [place] [address] | | + + + + + | Thania Mallory | ECON | [address] | | | | | [place] [address] | | + + + + + | Deidra Weldon | ECON | [address] | | | | | [place] | | | | | [address] | | + + + + + Care Team Providers + +------+ + | Care Rides Attendant Name | Role | Phone | [...] | RN [address] | ABO) | | | | [facility] | [facility] | | | | | Road [place], [place] | [place], [place] | | | | | [address] | [address] | | | | | [phone] | | | +--------+ + + + [...] Denise | | | | | | [place], [place] | | | | | | [address] | | | | | | [phone] | | | | | | | [...] + + | [facility] - | [address] | [place] | [phone] | | [place] | | | | + + + + + documented in this encounter Visit Diagnoses Not on filedocumented in this encounter"
--- OUTSIDE RECORDS SUMMARY | ~2018-08-13 | XMS | Encounter Summary ---
Demographics + + + | Address | [address] | | | [place] [address] | + + + | Home Phone [...] | | | | | [place] [address] | | + + + + + | Thania Mallory | ECON | [address] | | | | | [place] [address] | | + + + + + | Deidra Weldon | ECON | [address] | | | | | [place] | | | | | [address] | | + + + + + Care Team Providers + +------+ + | Care Major Appliance Assembly Supervisor Name | Role | Phone [...] | Update | | | | [facility] | [facility] | | | | | Road [place], [place] | [place], [place] | | | | | [address] | [address] | | | | | [phone] | | | +--------+ + + + [...] [place] | | | | | | [address] | | | | | | [phone] | | | | | | | | +--------+ + + + + documented as of this encounter Visit Diagnoses Not on filedocumented in this encounter"
--- OUTSIDE RECORDS SUMMARY | ~2018-08-13 | XMS | Encounter Summary ---
Demographics + + + | Address | [address] | | | [place] [address] | + + + | Home Phone [...] | | | | | [place] [address] | | + + + + + | Deidra Weldon | ECON | [address] | | | | | [place] | | | | | [address] | | + + + + + Care Team Providers + +------+ + | Care Dredge Mate Name | Role | Phone | [...] Hoffmann | | | | | [facility] | [facility] | | | | | Road [place], [place] | [place], [place] | | | | | [address] | [address] | | | | | [phone] | | | +--------+ + + + [...] Denise | | | | | | [place] | | | | | | [address] | | | | | | [phone] | | | | | | | | +--------+ + + + + documented as of this encounter Visit Diagnoses Not on filedocumented in this encounter"
--- OUTSIDE RECORDS SUMMARY | ~2018-08-13 | XMS | Encounter Summary ---
Demographics + + + | Address | [address] | | | [place] [address] | + + + | Home Phone [...] | | | | | [place] [address] | | + + + + + | Thania Mallory | ECON | [address] | | | | | [place] [address] | | + + + + + | Deidra Weldon | ECON | [address] | | | | | [place] | | | | | [address] | | + + + + + Care Team Providers + +------+ + | Care Type Rolling Machine Operator Name | Role | Phone [...] Shun | | | | | [facility] | [facility] | | | | | Road [place], [place] | [place], [place] | | | | | [address] | [address] | | | | | [phone] | [phone] | | | | | | | [...] Denise | | | | | | [place], [place] | | | | | | [address] | | | | | | [phone] | | | | | | | | +--------+ + + + + documented as of this encounter Visit Diagnoses Not on filedocumented in this encounter"
--- OUTSIDE RECORDS SUMMARY | ~2018-08-13 | XMS | Encounter Summary ---
Demographics + + + | Address | [address] | | | [place] [address] | + + + | Home Phone [...] + + + | Author | [facility] [employer] | + + + | Organization [...] Team Providers + +------+ + | Care Cabinet Installer Name | Role | Phone | [...] + | 06/29/ | Refill | ADIEL Granby | Stephanie Goodrich | Medication Refill | | 2019 | | [facility] | [place] | | | | | [address] | | | | | | [place] | | | | | | [address] | | | | | | [phone] | | | +--------+--------+ + + + [...] | | | | | [place] [address] | | | | | | [phone] | | | | | | | | +--------+---------+ + + + as of this encounter Visit Diagnoses Not on filein this encounter"
--- OUTSIDE RECORDS SUMMARY | ~2018-08-13 | XMS | Encounter Summary ---
Demographics + + + | Address | [address] | | | [place] [address] | + + + | Home Phone [...] Author | [facility] | | | and Josephana | + + + | Organization | [facility] | | [...] Team Providers + +------+ + | Care Reception Centre Manager Name | Role | Phone | [...] [address] [place] | [place] [address] | to return call to | | | | [address] | [phone] | complete intake | | | | [address] | | quest.) | | | | [phone] | | | +--------+ + + + [...]
--- OUTSIDE RECORDS SUMMARY | ~2018-08-13 | XMS | Encounter Summary ---
Demographics + + + | Address | [address] | | | [place] [address] | + + + | Home Phone [...] | | | | | [place] [address] | | + + + + + | Thania Mallory | ECON | [address] | | | | | [place] [address] | | + + + + + | Deidra Weldon | ECON | [address] | | | | | [place] | | | | | [address] | | + + + + + Care Team Providers + +------+ + | Care Director Private Name | Role | Phone | + [...] | Update | | | | [facility] | [facility] | | | | | Road [place], [place] | [place], [place] | | | | | [address] | [address] | | | | | [phone] | | | +--------+ + + + [...] | | | | | [place], [place] | | | | | | [address] | | | | | | [phone] | | | | | | | | +--------+ + + + + documented as of this encounter Visit Diagnoses + + | Diagnosis | + + | 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
--- OUTSIDE RECORDS SUMMARY | ~2018-08-13 | XMS | Encounter Summary ---
Demographics + + + | Address | [address] | | | [place] [address] | + + + | Home Phone [...] | | | | | [place] [address] | | + + + + + | Thania Mallory | ECON | [address] | | | | | [place] [address] | | + + + + + | Deidra Weldon | ECON | [address] | | | | | [place] | | | | | [address] | | + + + + + Care Team Providers + +------+ + | Care Guest Service Representative Name | Role | Phone [...] [address]un | | | | | ([facility]) | [address] | [address] | | | | | Procedures | [address] | Road | | | | | TRANSTHORACI | [place], [place] | Mailcode: | | | | | C | [address] | [id number] | | | | | ECHOCARDIOGR | Phone: | [place] | | | | | IMANI, PEDS | [phone] | [place], [place] | | | | | | Fax: | [address] | | | | | | [phone] | Phone: | | | | | | | [phone] | | | | | | | Fax: | | | | | | | [phone] | +--------+--------+ + + + + Diagnostic [...] [address] Shun | | | | | ([facility]) | [address] | [address] | | | | | Procedures | Park | Road | | | | | TRANSTHORACI | [place], [place] | Mailcode: | | | | | C | [address] | [id number] | | | | | ECHOCARDIOGR | Phone: | Alexander | | | | | KAJAL [address]ALLOS | [phone] | [place], [place] | | | | | | Fax: | [address] | | | | | | [phone] | Phone: | | | | | | | [phone] | | | | | | | Fax: | | | | | | | [phone] | +--------+--------+ + + + + Reason [...] [address] Shun | | | | | ([facility]) | [address] | [address] | | | | | Procedures | [address] | Road | | | | | TRANSTHORACI | [place], [place] | Mailcode: | | | | | C | [address] | [id number] | | | | | ECHOCARDIOGR | Phone: | [place] | | | | | AM, PEDS | [phone] | [place], [place] | | | | | | Fax: | [address] | | | | | | [phone] | Phone: | | | | | | | [phone] | | | | | | | Fax: | | | | | | | [phone] | +--------+--------+ + + + + Encounter Details +--------+ + + + + | Date | Type | Department | Care Team | Description | +--------+ + + + + | 12/20/ | Hospital | Pediatric Echo Lab | | | | 2012 | Encounter | at [facility] [address] | | | | | [address] | | | | | | Road Mailcode: | | | | | | [id number] [address] | | | | | | [place], [place] | | | | | | [address] | | | | | | [phone] | | | +--------+ + + + [...] Denise | | | | | | [place], [place] | | | | | | [address] | | | | | | [phone] | | | | | | | [...]
--- OUTSIDE RECORDS SUMMARY | ~2018-08-13 | XMS | Encounter Summary ---
Demographics + + + | Address | [address] | | | [place] [address] | + + + | Home Phone [...] | | | | | [place] [address] | | + + + + + | Thania Mallory | ECON | [address] | | | | | [place] [address] | | + + + + + | Deidra Weldon | ECON | [address] | | | | | [place] | | | | | [address] | | + + + + + Care Team Providers + +------+ + | Care Moisture Machine Tender Name | Role | Phone [...] [facility] | | | | [facility] | [place], [place] | | | | | [address] | [address] | | | | | [facility] | [phone] | | | | | Mailcode: [facility] | | | | | | [address] | | | | | | [place], [place] | | | | | | [address] | | | | | | [phone] | | | +--------+ + + + [...] Denise | | | | | | [place], [place] | | | | | | [address] | | | | | | [phone] | | | | | | | [...] + + | [facility] - | [address] | [place] | [phone] | | [place] | | | | + + + + + documented in this encounter Visit Diagnoses Not on filedocumented in this encounter"
--- OUTSIDE RECORDS SUMMARY | ~2018-08-13 | XMS | Encounter Summary ---
Demographics + + + | Address | [address] | | | [place] [address] | + + + | Home Phone [...] + + + | Author | [facility] [employer] | + + + | Organization | [facility] | + + [...] Team Providers + +------+ + | Care Ranch Supervisor Name | Role | Phone | [...] | 2019 | Orders | ECHO | [address], | type | | | | | [address] [place], | | | | | | [place] [address] | | | | | | [phone] | | | | | | | [...] 11/22/ | Office | Pulmonology | Denny lAexander | | | 2019 | Visit | | Deny Briggs MD [address] | | | | | [address] | | | | | | [place] [address] | | | | | | [phone] | | | | | | | [...] DARA WELDON Date of : 1995 | [facility] | | Performing Physician: René Noonan [...] MV A Shahid: 0.39 m/s MV Dec [place]: 9.46 m/s2 | | | MV DecT: 106.01 ms MV E Shahid: 1.00 m/s MV E/A Ratio: | | | 2.54 E/E' Sept: 23.82 E' Lat: 0.08 m/s E' Sept: 0.04 | | | m/s RAP: 15 mmHg RV S': 0.11 m/s RVSP: 67.64 mmHg TR | | | maxP.64 mmHg TR Vmax: 3.61 m/s Lean Manager: | | | Authenticated by: René Noonan MD Report Date/Time: -- | | | [id number]:15:25 | | + + + + + | Procedure Note | + + | Sonido Steele Results In - 06/12/2018 4:15 PM PDT Patient Name: Anders WELDON of | | : 1995Accession: [id number] Physician: René Noonan MD | | INDICATIONS [...] (A-L): 31.60 | | ml/m2LAAs A2C: 18.56 qn2PVCLF A-L A2C: 58.49 mlLAESV MOD A2C: 54.57 mlLALs A2C: | | 5.00 cmLAAs A4C: 17.96 to9GOAWF A-L A4C: 52.99 mlLAESV MOD A4C: 44.93 mlLALs A4C: | | 5.18 cmLAESV(MOD BP): 49.83 mlRAAs: 18.33 lz0ZXCPE A-L: 57.01 mlRAESV MOD: | | 56.24 mlRALs: 5.02 cmTAPSE: 1.98 cmAV Env.Ti: 227.35 msAV maxP.22 mmHgAV | | meanP.25 mmHgAV Vmax: 1.59 m/Elizabeth Vmean: 1.06 m/Elizabeth VTI: 24.30 cmAVA Vmax: | | 2.68 cm2AVA (VTI): 2.73 pr3SDHT Vmax: 0.00 cm2/m2AVAI (VTI): 0.00 cm2/m2LVOT | | Env.Ti: 210.72 msLVOT maxP.99 mmHgLVOT meanP.87 mmHgLVSI Dopp: 37.17 | | ml/m2LVSV Dopp: 66.54 mlLVOT Vmax: 1.41 m/sLVOT Vmean: 1.03 m/sLVOT VTI: 21.88 | | cmMV A Shahid: 0.39 m/sMV Dec [place]: 9.46 m/s2MV DecT: 106.01 msMV E Shahid: 1.00 | | m/sMV E/A Ratio: 2.54 E/E' Sept: 23.82 E' Lat: 0.08 m/sE' Sept: 0.04 m/sRAP: | | 15 mmHgRV S': 0.11 m/sRVSP: 67.64 mmHgTR maxP.64 mmHgTR Vmax: 3.61 | | m/sSonographer: Authenticated by: René HARPERepbrett Date/Time: -- | | [id number]:15:25IMPRESSION:1. Overall left ventricular systolic function is | [...] A Shahid: 0.39 m/s | |MV Dec [place]: 9.46 m/s2 | |MV DecT: 106.01 ms | |MV E Shahid: 1.00 m/s | |MV E/A Ratio: 2.54 | |E/E' Sept: 23.82 | |E' Lat: 0.08 m/s | |E' Sept: 0.04 m/s | |RAP: 15 mmHg | |RV S': 0.11 m/s | |RVSP: 67.64 mmHg | |TR maxP.64 mmHg | |TR Vmax: 3.61 m/s | | | |Lean Manager: | |Authenticated by: René Noonan MD | |Report Date/Time: -- 02_[id number]_52:15:25 | | | |IMPRESSION: | |1. Overall [...] [facility] | [address] | [place], [place] [address] | | + + + + + in this encounter Visit Diagnoses + + | Diagnosis | + + | Dyspnea, unspecified type | + +"
--- OUTSIDE RECORDS SUMMARY | ~2018-08-13 | XMS | Encounter Summary ---
Demographics + + + | Address | [address] | | | [place] [address] | + + + | Home Phone [...] | | | | | [place] [address] | | + + + + + | Thania Mallory | ECON | [address] | | | | | [place] [address] | | + + + + + | Deidra Weldon | ECON | [address] | | | | | [place] | | | | | [address] | | + + + + + Care Team Providers + +------+ + | Care Lookback Coordinator Name | Role | Phone | [...] | MD Emanuel [address] | Requested (UDS) | | | | [place] | [facility] | | | | | [facility] | [place], [place] | | | | | [address] | [address] | | | | | [facility] | [phone] | | | | | Mailcode: [id number] | | | | | | [place] | | | | | | [place], [place] | | | | | | [address] | | | | | | [phone] | | | +--------+ + + + [...] Denise | | | | | | [place] | | | | | | [address] | | | | | | [phone] | | | | | | | | +--------+ + + + + documented as of this encounter Visit Diagnoses Not on filedocumented in this encounter"
--- OUTSIDE RECORDS SUMMARY | ~2018-08-13 | XMS | Encounter Summary ---
Demographics + + + | Address | [address] | | | [place] [address] | + + + | Home Phone [...] + + + | Author | [employer] | + + + | Organization [...] Providers + +------+ + | Care Auxiliary Plant Operator Name | Role | Phone | + +------+ + | Jonathan Alonso MD | PCP | | + +------+ + Reason for Visit +--------+ + | Reason | Comments | +--------+ + | Other | [facility] | +--------+ + Encounter Details +--------+ + + + + | Date | Type | Department | Care Team | Description | +--------+ + + + + | 07/04/ | Luisati | ADIEL Hutchinson | Daniela Alejandre | [facility] | | 2019 | on Only | Cardiology Jessy | ORIANA Castellanos | [facility] ) | | | | [address] | | | | | | [place] | | | | | | [address] | | | | | | [phone] | | | +--------+ + + + [...] | | | | | [place] [address] | | | | | | [phone] | | | | | | | | +--------+---------+ + + + as of this encounter Visit Diagnoses Not on filein this encounter"
--- OUTSIDE RECORDS SUMMARY | ~2018-08-13 | XMS | Encounter Summary ---
Demographics + + + | Address | [address] | | | [place] [address] | + + + | Home Phone [...] | | | | | [place] [address] | | + + + + + | Thania Mallory | ECON | [address] | | | | | [place] [address] | | + + + + + | Deidra Weldon | ECON | [address] | | | | | [place] | | | | | [address] | | + + + + + Care Team Providers + +------+ + | Care Baker Head Name | Role | Phone | [...] | | | | W [facility]un [place] | [facility] | | | | | Road [place], [place] | [place], [place] | | | | | [address] | [address] | | | | | [phone] | | | +--------+ + + + [...] | | | | | | [place] | | | | | | [address] | | | | | | [phone] | | | | | | | | +--------+ + + + + documented as of this encounter Visit Diagnoses Not on filedocumented in this encounter"
--- OUTSIDE RECORDS SUMMARY | ~2018-08-13 | XMS | Encounter Summary ---
Demographics + + + | Address | [address] | | | [place] [address] | + + + | Home Phone [...] | | | | | [place] [address] | | + + + + + | Thania Mallory | ECON | [address] | | | | | [place] [address] | | + + + + + | Deidra Weldon | ECON | [address] | | | | | [place] | | | | | [address] | | + + + + + Care Team Providers + +------+ + | Care Director Embalmer Name | Role | Phone | + [...] issues with | | | | Road [place], [place] | [place], [place] | pt's dad) | | | | [address] | [address] | | | | | [phone] | | | +--------+ + + + [...] [place] | | | | | | [address] | | | | | | [phone] | | | | | | | | +--------+ + + + + documented as of this encounter Visit Diagnoses Not on filedocumented in this encounter"
--- OUTSIDE RECORDS SUMMARY | ~2018-08-13 | XMS | Encounter Summary ---
Demographics + + + | Address | [address] | | | [place] [address] | + + + | Home Phone [...] | | | | | [place] [address] | | + + + + + | Thania Mallory | ECON | [address] | | | | | [place] [address] | | + + + + + | Deidra Weldon | ECON | [address] | | | | | [place] | | | | | [address] | | + + + + + Care Team Providers + +------+ + | Care Senior Php Software Developer Name | Role | Phone | [...] | recommendations) | | | | [facility] | [facility] | | | | | Road [place], [place] | [place], [place] | | | | | [address] | [address] | | | | | [phone] | | | +--------+ + + + [...] | | | | | | [place], [place] | | | | | | [address] | | | | | | [phone] | | | | | | | | +--------+ + + + + documented as of this encounter Visit Diagnoses Not on filedocumented in this encounter"
--- OUTSIDE RECORDS SUMMARY | ~2018-08-13 | XMS | Encounter Summary ---
Demographics + + + | Address | [address] | | | [place] [address] | + + + | Home Phone [...] | | | | | [place] [address] | | + + + + + | Thania Mallory | ECON | [address] | | | | | [place] [address] | | + + + + + | Deidra Weldon | ECON | [address] | | | | | [place] | | | | | [address] | | + + + + + Care Team Providers + +------+ + | Care Refrigerator Repair Technician Name | Role | Phone | [...] | | | | | W [facility]un [facility] | [facility] | | | | | Road [place], [place] | [place], [place] | | | | | [address] | [address] | | | | | [phone] | | | +--------+ + + + [...] Denise | | | | | | [place], [place] | | | | | | [address] | | | | | | [phone] | | | | | | | | +--------+ + + + + documented as of this encounter Visit Diagnoses Not on filedocumented in this encounter"
--- OUTSIDE RECORDS SUMMARY | ~2018-08-13 | XMS | Encounter Summary ---
Demographics + + + | Address | [address] | | | [place] [address] | + + + | Home Phone [...] | | | | | [place] [address] | | + + + + + | Thania Mallory | ECON | [address] | | | | | [place] [address] | | + + + + + | Deidra Weldon | ECON | [address] | | | | | [place] | | | | | [address] | | + + + + + Care Team Providers + +------+ + | Care Night Worker Name | Role | Phone | [...] (Immunizations) | | | | [facility] | [facility] | | | | | Road [place], [place] | [place], [place] | | | | | [address] | [address] | | | | | [phone] | | | +--------+ + + + [...] | | | | | | [place], [place] | | | | | | [address] | | | | | | [phone] | | | | | | | | +--------+ + + + + documented as of this encounter Visit Diagnoses Not on filedocumented in this encounter"
--- OUTSIDE RECORDS SUMMARY | ~2018-08-13 | XMS | Encounter Summary ---
Demographics + + + | Address | [address] | | | [place] [address] | + + + | Home Phone [...] | | | | | [place] [address] | | + + + + + | Thania Mallory | ECON | [address] | | | | | [place] [address] | | + + + + + | Deidra Weldon | ECON | [address] | | | | | [place] | | | | | [address] | | + + + + + Care Team Providers + +------+ + | Care Turnstile Collector Name | Role | Phone | [...] Shun | | | | | [facility] | [facility] | | | | | Road [place], [place] | [place], [place] | | | | | [address] | [address] | | | | | [phone] | | | +--------+ + + + [...] [place] | | | | | | [address] | | | | | | [phone] | | | | | | | | +--------+ + + + + documented as of this encounter Visit Diagnoses Not on filedocumented in this encounter"
--- OUTSIDE RECORDS SUMMARY | ~2018-08-13 | XMS | Encounter Summary ---
Demographics + + + | Address | [address] | | | [place] [address] | + + + | Home Phone [...] | | | | | [place] [address] | | + + + + + | Thania Mallory | ECON | [address] | | | | | [place] [address] | | + + + + + | Deidra Weldon | ECON | [address] | | | | | [place] | | | | | [address] | | + + + + + Care Team Providers + +------+ + | Care Tow Car Driver Name | Role | Phone | + +------+ + | Jonathan Alonso MD | PCP | | + +------+ + Encounter Details +--------+ + + + + | Date | Type | Department | Care Team | Description | +--------+ + + + + | 01/20/ | Hospital | Radiology at [facility] | | | | 2014 | Encounter | [address] [facility] | | | | | | [facility] | | | | | | Mailcode: [id number] | | | | | | [place] | | | | | | [place], [place] | | | | | | [address] | | | | | | [phone] | | | +--------+ + + + [...] Camelia | | | | | | [place], [place] | | | | | | [address] | | | | | | [phone] | | | | | | | [...] | | + +---------+ + + | [facility] | | | | | [...]
--- OUTSIDE RECORDS SUMMARY | ~2018-08-13 | XMS | Encounter Summary ---
Demographics + + + | Address | [address] | | | [place] [address] | + + + | Home Phone [...] | | | | | [place] [address] | | + + + + + | Thania Mallory | ECON | [address] | | | | | [place] [address] | | + + + + + | Deidra Weldon | ECON | [address] | | | | | [place] | | | | | [address] | | + + + + + Care Team Providers + +------+ + | Care Wooden Tank Erector Name | Role | Phone | [...] (pt | | | | [facility] | [facility] | request to change | | | | Road [place], [place] | [place], [place] | clinic appt) | | | | [address] | [address] | | | | | [phone] | | | +--------+ + + + [...] Denise | | | | | | [place] | | | | | | [address] | | | | | | [phone] | | | | | | | | +--------+ + + + + documented as of this encounter Visit Diagnoses Not on filedocumented in this encounter"
--- OUTSIDE RECORDS SUMMARY | ~2018-08-13 | XMS | Encounter Summary ---
Demographics + + + | Address | [address] | | | [place] [address] | + + + | Home Phone [...] | | | | | [place] [address] | | + + + + + | Thania Mallory | ECON | [address] | | | | | [place] [address] | | + + + + + | Deidra Weldon | ECON | [address] | | | | | [place] | | | | | [address] | | + + + + + Care Team Providers + +------+ + | Care Earth Science Faculty Member Name | Role | Phone | [...] [address] | L [address] [facility] | Transplant | | | | [facility] | [facility] | Evaluation | | | | Road [place], [place] | [place], [place] | | | | | [address] | [address] | | | | | [phone] | | | +--------+ + + + [...] Denise | | | | | | [place] | | | | | | [address] | | | | | | [phone] | | | | | | | | +--------+ + + + + documented as of this encounter Visit Diagnoses Not on filedocumented in this encounter"
--- OUTSIDE RECORDS SUMMARY | ~2018-08-13 | XMS | Encounter Summary ---
Demographics + + + | Address | [address] | | | [place] [address] | + + + | Home Phone [...] | | | | | [place] [address] | | + + + + + | Thania Mallory | ECON | [address] | | | | | [place] [address] | | + + + + + | Deidra Weldon | ECON | [address] | | | | | [place] | | | | | [address] | | + + + + + Care Team Providers + +------+ + | Care Environmental Analyst Name | Role | Phone | [...] Update | | | | W [facility]un [facility] | [facility] | | | | | Road [place], [place] | [place], [place] | | | | | [address] | [address] | | | | | [phone] | | | +--------+ + + + [...] | | | | | | [place], [place] | | | | | | [address] | | | | | | [phone] | | | | | | | | +--------+ + + + + documented as of this encounter Visit Diagnoses Not on filedocumented in this encounter"
--- OUTSIDE RECORDS SUMMARY | ~2018-08-13 | XMS | Encounter Summary ---
Demographics + + + | Address | [address] | | | [place] [address] | + + + | Home Phone [...] | | | | | [place] [address] | | + + + + + | Thania Mallory | ECON | [address] | | | | | [place] [address] | | + + + + + | Deidra Weldon | ECON | [address] | | | | | [place] | | | | | [address] | | + + + + + Care Team Providers + +------+ + | Care Special Forces Engineer Sergeant Name | Role | Phone | [...] questions) | | | | W [facility]un [facility] | [facility] | | | | | Road [place], [place] | [place], [place] | | | | | [address] | [address] | | | | | [phone] | | | +--------+ + + + [...] [place] | | | | | | [address] | | | | | | [phone] | | | | | | | | +--------+ + + + + documented as of this encounter Visit Diagnoses Not on filedocumented in this encounter"
--- OUTSIDE RECORDS SUMMARY | ~2018-08-13 | XMS | Encounter Summary ---
Demographics + + + | Address | [address] | | | [place] [address] | + + + | Home Phone [...] + + + | Author | [employer] | + + + | Organization [...] + +------+ + | Care Front Office Secretary Name | Role | Phone | + +------+ + | Jonathan Alonso MD | PCP | | + +------+ + Encounter Details +--------+ + + + + | Date | Type | Department | Care Team | Description | +--------+ + + + + | 06/12/ | Telephone | AD[facility]EL [facility] | Carolina Mahmood DO | | | 2019 | | Cardiology Jessy | [address] | | | | | [address] | [address] | | | | | [place] | [address] | | | | | [address] | | | | | | [phone] | | | +--------+ + + + [...] | | | | | [place] [address] | | | | | | [phone] | | | | | | | | +--------+---------+ + + + as of this encounter Visit Diagnoses Not on filein this encounter"
--- OUTSIDE RECORDS SUMMARY | ~2018-08-13 | XMS | Clinical Summary ---
Demographics + + + | Address | [address] | | | [place] [address] | + + + | Home Phone [...] | | | | | [place] [address] | | + + + + + | Thania Mallory | ECON | [address] | | | | | [place] [address] | | + + + + + | Deidra Weldon | ECON | [address] | | | | | [place] | | | | | [address] | | + + + + + Care Team Providers + +------+ + | Care Outplacement Consultant Name | Role | Phone | + +------+ + | Jonathan Alonso MD | PP | | + +------+ + Source Comments DANILO is fully live on both EpicCare Ambulatory and EpicCare InPatient.[facility] Allergies + + + + + + [...] Denise | | | | | | [place], [place] | | | | | | [address] | | | | | | [phone] | | | | | | | [...] | | | | | | | [address] | | + +--------+ +--------+ + +--------+ | METER TESTER MEDICAID | METER TESTER | [id number] | Effect | | | [...] | RENAL | | for | | [place], | | | | RECIPI | | all | | [place] [address] | | | | ENT | | [...] | Self | [birth year] | [address] | | | al/Fam | | 1995 | [phone] | 3 [place] | | | kamron | | | 2 (Home) | [address] | | | | | | [phone] | | | | | | | 0 (Work) | | + +--------+ +--------+ + + | CORY ALVES | Kisha | Mother | [birth year] | [address] | | | l | | 190 | [phone] | 3 [place] | | | Gamal | | | 2 (Home) | [address] | | | g | | | | | + +--------+ +--------+ + +
--- OUTSIDE RECORDS SUMMARY | ~2018-08-13 | XMS | Encounter Summary ---
Demographics + + + | Address | [address] | | | [place] [address] | + + + | Home Phone [...] | | | | | [place] [address] | | + + + + + | Thania Mallory | ECON | [address] | | | | | [place] [address] | | + + + + + | Deidra Weldon | ECON | [address] | | | | | [place] | | | | | [address] | | + + + + + Care Team Providers + +------+ + | Care It Compliance Analyst Name | Role | Phone | [...] unit updated) | | | | Road [place], [place] | [place], [place] | | | | | [address] | [address] | | | | | [phone] | [phone] | | | | | | | [...] Denise | | | | | | [place] | | | | | | [address] | | | | | | [phone] | | | | | | | | +--------+ + + + + documented as of this encounter Visit Diagnoses Not on filedocumented in this encounter"
--- OUTSIDE RECORDS SUMMARY | ~2018-08-13 | XMS | Encounter Summary ---
Demographics + + + | Address | [address] | | | [place] [address] | + + + | Home Phone [...] | | | | | [place] [address] | | + + + + + | Thania Mallory | ECON | [address] | | | | | [place] [address] | | + + + + + | Deidra Weldon | ECON | [address] | | | | | [place] | | | | | [address] | | + + + + + Care Team Providers + +------+ + | Care Event Specialist Name | Role | Phone | [...] | | [facility] | [facility] | | | | | Road [place], [place] | [place], [place] | | | | | [address] | [address] | | | | | [phone] | | | +--------+ + + + [...] | | | | | | [place] | | | | | | [address] | | | | | | [phone] | | | | | | | | +--------+ + + + + documented as of this encounter Visit Diagnoses Not on filedocumented in this encounter"
--- OUTSIDE RECORDS SUMMARY | ~2018-08-13 | XMS | Encounter Summary ---
Demographics + + + | Address | [address] | | | [place] [address] | + + + | Home Phone [...] | | | | | [place] [address] | | + + + + + | Thania Mallory | ECON | [address] | | | | | [place] [address] | | + + + + + | Deidra Weldon | ECON | [address] | | | | | [place] | | | | | [address] | | + + + + + Care Team Providers + +------+ + | Care Executive Staff Assistant Name | Role | Phone | [...] Update | | | | [facility] | [facility] | | | | | Road [place], [place] | [place], [place] | | | | | [address] | [address] | | | | | [phone] | | | +--------+ + + + [...] Denise | | | | | | [place], [place] | | | | | | [address] | | | | | | [phone] | | | | | | | | +--------+ + + + + documented as of this encounter Visit Diagnoses Not on filedocumented in this encounter"
--- OUTSIDE RECORDS SUMMARY | ~2018-08-13 | XMS | Encounter Summary ---
Demographics + + + | Address | [address] | | | [place] [address] | + + + | Home Phone [...] | | | | | [place] [address] | | + + + + + | Thania Mallory | ECON | [address] | | | | | [place] [address] | | + + + + + | Deidra Weldon | ECON | [address] | | | | | [place] | | | | | [address] | | + + + + + Care Team Providers + +------+ + | Care Dental Chair Assembler Name | Role | Phone | + +------+ + | Jonathan Alonso MD | PCP | | + +------+ + Reason for Visit + + + | Reason | Comments | + + + | Social Work Waitlist | ANNALSIA [facility] update; check-in on psychosocial goals related [...] check-in on | | | | Road [place], [place] | [place], [place] | psychosocial goals | | | | [address] | [address] | related to listing | | | | [phone] | | status) | +--------+ + + [...] Denise | | | | | | [place], [place] | | | | | | [address] | | | | | | [phone] | | | | | | | | +--------+ + + + + documented as of this encounter Visit Diagnoses Not on filedocumented in this encounter"
--- OUTSIDE RECORDS SUMMARY | ~2018-08-13 | XMS | Encounter Summary ---
Demographics + + + | Address | [address] | | | [place] [address] | + + + | Home Phone [...] | | | | | [place] [address] | | + + + + + | Thania Mallory | ECON | [address] | | | | | [place] [address] | | + + + + + | Deidra Weldon | ECON | [address] | | | | | [place] | | | | | [address] | | + + + + + Care Team Providers + +------+ + | Care Booth Cleaner Name | Role | Phone | + +------+ + PCP | Unavailable | + +------+ + Reason for Visit + + + | Reason | Comments | + + + | Transplant Form | compound worker 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 | | Update | [...] (Social | | | | W Shun [facility] | [facility] | worker dates | | | | Road [place], [place] | [place], [place] | updated) | | | | [address] | [address] | | | | | [phone] | [phone] | | | | | | | [...] Denise | | | | | | [place], [place] | | | | | | [address] | | | | | | [phone] | | | | | | | | +--------+ + + + + documented as of this encounter Visit Diagnoses Not on filedocumented in this encounter"
--- OUTSIDE RECORDS SUMMARY | ~2018-08-13 | XMS | Encounter Summary ---
Demographics + + + | Address | [address] | | | [place] [address] | + + + | Home Phone [...] | | | | | [place] [address] | | + + + + + | Thania Mallory | ECON | [address] | | | | | [place] [address] | | + + + + + | Deidra Weldon | ECON | [address] | | | | | [place] | | | | | [address] | | + + + + + Care Team Providers + +------+ + | Care Boat Cleaner Name | Role | Phone | [...] | | | | W Shun [facility] | [address] | potential | | | | Road [place], [place] | [place], [place] | donor/checking in | | | | [address] | [address] | with SW) | | | | [phone] | | | +--------+ + + + [...] Denise | | | | | | [place] | | | | | | [address] | | | | | | [phone] | | | | | | | | +--------+ + + + + documented as of this encounter Visit Diagnoses Not on filedocumented in this encounter"
--- OUTSIDE RECORDS SUMMARY | ~2018-08-13 | XMS | Encounter Summary ---
Demographics + + + | Address | [address] | | | [place] [address] | + + + | Home Phone [...] | | | | | [place] [address] | | + + + + + | Thania Mallory | ECON | [address] | | | | | [place] [address] | | + + + + + | Deidra Weldon | ECON | [address] | | | | | [place] | | | | | [address] | | + + + + + Care Team Providers + +------+ + | Care Director Oracle Name | Role | Phone | + +------+ + | Shahid Camargo MD | PCP | Unavailable | + +------+ + Reason for Visit +--------+ + | Reason | Comments | +--------+ + | Other | Requested [id number] | +--------+ + Encounter Details +--------+ + + + + | Date | Type | Department | Care Team | Description | +--------+ + + + + | 11/15/ | Telephone | Transplant | Jesus Edmond, | Other (Requested | | 2012 | | Coordinators [address] | [address] [facility] | [id number]) | | | | W Shun [facility] | [facility] | | | | | Road [place], [place] | [place], [place] | | | | | [address] | [address] | | | | | [phone] | [phone] | | | | | | | [...] Dneise | | | | | | [place] | | | | | | [address] | | | | | | [phone] | | | | | | | | +--------+ + + + + documented as of this encounter Visit Diagnoses Not on filedocumented in this encounter"
--- OUTSIDE RECORDS SUMMARY | ~2018-08-13 | XMS | Encounter Summary ---
Demographics + + + | Address | [address] | | | [place] [address] | + + + | Home Phone [...] + + + | Author | [employer] | + + + | Organization | [facility] | + + + [...] Providers + +------+ + | Care Public Defender Name | Role | Phone | + [...] + | 06/27/ | Documentati | ADIEL Hutchinson | Albin | Labs Only | | 2019 | on Only | Cardiology Jessy | ABRIL Martínez | | | | | [address] | | | | | | [place] | | | | | | [address] | | | | | | [phone] | | | +--------+ + + + [...] Ros[place] | | | | | | [facility] [address] | | | | | | [phone] | | | | | | | | +--------+---------+ + + + as of this encounter Visit Diagnoses Not on filein this encounter"
--- OUTSIDE RECORDS SUMMARY | ~2018-08-13 | XMS | Encounter Summary ---
Demographics + + + | Address | [address] | | | [place] [address] | + + + | Home Phone [...] | | | | | [place] [address] | | + + + + + | Thania Mallory | ECON | [address] | | | | | [place] [address] | | + + + + + | Deidra Weldon | ECON | [address] | | | | | [place] | | | | | [address] | | + + + + + Care Team Providers + +------+ + | Care Needle Board Repairer Name | Role | Phone | [...] | | | [facility] | [facility] | Evaluation | | | | Road [place], [place] | [place], [place] | (pre-listing | | | | [address] | [address] | pediatric [place] | | | | [phone] | | update) | +--------+ + + [...] | | | | | | [place], [place] | | | | | | [address] | | | | | | [phone] | | | | | | | | +--------+ + + + + documented as of this encounter Visit Diagnoses Not on filedocumented in this encounter"
--- OUTSIDE RECORDS SUMMARY | ~2018-08-13 | XMS | Encounter Summary ---
Demographics + + + | Address | [address] | | | [place] [address] | + + + | Home Phone [...] | | | | | [place] [address] | | + + + + + | Thania Mallory | ECON | [address] | | | | | [place] [address] | | + + + + + | Deidra Weldon | ECON | [address] | | | | | [place] | | | | | [address] | | + + + + + [...] | Family sheet) | | | | [facility] | [facility] | | | | | Mailcode: [id number] | [place], [place] | | | | | Physicians Ifeanyi | [address] | | | | | [address], | [phone] | | | | | [place] [address] | | | | | | [phone] | | | +--------+ + + + [...] [place] | | | | | | [address] | | | | | | [phone] | | | | | | | | +--------+ + + + + documented as of this encounter Visit Diagnoses Not on filedocumented in this encounter"
--- OUTSIDE RECORDS SUMMARY | ~2018-08-13 | XMS | Encounter Summary ---
Demographics + + + | Address | [address] | | | [place] [address] | + + + | Home Phone [...] | | | | | [place] [address] | | + + + + + | Thania Mallory | ECON | [address] | | | | | [place] [address] | | + + + + + | Deidra Weldon | ECON | [address] | | | | | [place] | | | | | [address] | | + + + + + Care Team Providers + +------+ + | Care Cycle Repairer Name | Role | Phone | [...] | | | | | [address] [facility] | [facility] | | | | | Road [place], [place] | [place], [place] | | | | | [address] | [address] | | | | | [phone] | | | +--------+ + + + [...] [facility] | | | | | | [address] | | | | | | [phone] | | | | | | | | +--------+ + + + + documented as of this encounter Visit Diagnoses Not on filedocumented in this encounter"
--- OUTSIDE RECORDS SUMMARY | ~2018-08-13 | XMS | Encounter Summary ---
Demographics + + + | Address | [address] | | | [place] [address] | + + + | Home Phone [...] | | | | | [place] [address] | | + + + + + | Thania Mallory | ECON | [address] | | | | | [place] [address] | | + + + + + | Deidra Weldon | ECON | [address] | | | | | [place] | | | | | [address] | | + + + + + Care Team Providers + +------+ + | Care Manager Of Loss Prevention Operations Name | Role | Phone | [...] [facility] | | | | | [place] [address] | [place] [address] | | | | | | [phone] | | | | | | | [...] Denise | | | | | | [place], [place] | | | | | | [address] | | | | | | [phone] | | | | | | | | +--------+ + + + + documented as of this encounter Visit Diagnoses Not on filedocumented in this encounter"
--- OUTSIDE RECORDS SUMMARY | ~2018-08-13 | XMS | Encounter Summary ---
Demographics + + + | Address | [address] | | | [place] [address] | + + + | Home Phone [...] | | | | | [place] [address] | | + + + + + | Thania Mallory | ECON | [address] | | | | | [place] [address] | | + + + + + | Deidra Weldon | ECON | [address] | | | | | [place] | | | | | [address] | | + + + + + Care Team Providers + +------+ + | Care Sports Reporter Name | Role | Phone | [...] 2013 | | Coordinators [address] | [place], [place] | Update | | | | [address] [facility] | [address] | | | | | Road [place], [place] | | | | | | [address] | | | | | | [phone] | | | +--------+ + + + [...] [facility] | | | | | | [address] | | | | | | [phone] | | | | | | | | +--------+ + + + + documented as of this encounter Visit Diagnoses Not on filedocumented in this encounter"
--- OUTSIDE RECORDS SUMMARY | 2018-08-13 10:28 | XMS ---
PreManage Notification: CONOR LOUISE Security Trim Mounter Events No recent Security Events currently on file CRITERIA MET - 6 ED Visits in 6 Months - [facility] - Has Care Guidelines - PDMP - [facility] - 2 Visits in 30 Days CARE PROVIDERS TIEN NICHOLSON Hospitalist 05/28/2018-Current PHONE: Unknown Karena has no Care Guidelines for this patient. Care History Medical/Surgical 05/28/2018 [facility] - Patient is currently established with [facility]. If patient is seen in the ED during business hours. Please contact CHWs at [facility]. Care Recommendation: This patient has had [...] providing care. E.D. VISIT COUNT (12 MO.) 2 [facility] 11 [facility] TOTAL 13 NOTE: Visits indicate total known visits. ED/UCC VISIT TRACKING (12 MO.) 08/13/2018 10:25 [facility] [place] TYPE: Emergency COMPLAINT: - [facility] PRESS[facility] TYPE: Emergency DIAGNOSES: - Hypoxemia - Pleural effusion, not elsewhere classified - Cough - Pneumonia - Fever, unspecified - Personal history of other diseases of urinary system 07/18/2018 17:27 [facility] [place] TYPE: Emergency COMPLAINT: - SINUS CONGESTION/ FEVER DIAGNOSES: - Personal history of nicotine dependence - Other specified respiratory disorders - Cough - Radiographic dye allergy status - Allergy status to narcotic agent status - Chronic kidney disease, unspecified - Allergy status to other drugs, medicaments and biological substances status 06/19/2018 23:43 [facility] [place] TYPE: Emergency COMPLAINT: - CHEST PAIN DIAGNOSES: - Other chest pain - 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 - Allergy status to other drugs, medicaments and biological substances status - End stage renal disease - Dependence on renal dialysis - Personal history of nicotine dependence - Fluid overload, unspecified - Radiographic dye allergy status - Heart failure, unspecified - Other meterman (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 06/12/2018 13:45 [facility] [place] TYPE: Emergency COMPLAINT: - SOB DIAGNOSES: - Shortness of breath - Radiographic dye allergy status - Unspecified asthma, uncomplicated - Hyperkalemia - Allergy status to narcotic agent status - Dependence on renal dialysis - Fluid overload, unspecified - Other meterman (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 - Allergy status to other drugs, medicaments and biological substances status - Chronic kidney disease, unspecified 06/11/2018 07:55 [facility] TYPE: Emergency COMPLAINT: - DIFFICULTY BREATHING,VOMITING DIAGNOSES: - Chronic pulmonary edema - Shortness of breath - Other senior care (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 - Radiographic dye allergy status - 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 - Personal history of nicotine dependence 06/04/2018 06:07 [facility] TYPE: Emergency COMPLAINT: - SOB DIAGNOSES: - Shortness of breath - Allergy status to other drugs, medicaments and biological substances status - Radiographic dye allergy status - Other senior care (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 - Dyspnea, unspecified - Allergy status to narcotic agent status - Respiratory syncytial virus as the cause of diseases classified elsewhere 05/26/2018 11:57 [facility] TYPE: Emergency DIAGNOSES: - Acute respiratory distress - Chest pain, unspecified - Other ascites - Pleural effusion, not elsewhere classified 05/26/2018 07:23 [facility] [place] TYPE: Emergency COMPLAINT: - FLU SYMPTOMS DIAGNOSES: - Allergy status to other drugs, medicaments and biological substances status - Other senior care (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 - Radiographic dye allergy status - Dependence on renal dialysis - Pleural effusion, not elsewhere classified - Allergy status to narcotic agent status - Shortness of breath 05/25/2018 11:53 [facility] [place] TYPE: Emergency COMPLAINT: - SOB/COUGH DIAGNOSES: - Dependence on renal dialysis - Shortness of breath - Allergy status to narcotic agent status - Pneumonia, unspecified organism - Other senior care (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 - Radiographic dye allergy status - Pleural effusion, not elsewhere classified - Allergy status to other drugs, medicaments and biological substances status 05/10/2018 07:20 [facility] [place] TYPE: Emergency COMPLAINT: - PREVIOUS BLOODY NOSE DIAGNOSES: - Epistaxis - Other meterman (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 - End stage renal [...] unspecified, uncomplicated - Epigastric pain - Other meterman (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 09/16/2017 23:06 [facility] [place] TYPE: Emergency COMPLAINT: - BP PROBLEM,RENAL FAILURE DIAGNOSES: - Chronic kidney disease, unspecified - Dependence on renal dialysis - Pain, unspecified - Allergy status to narcotic agent status - Nicotine dependence, unspecified, uncomplicated - Other senior care (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 - Elevated blood-pressure reading, without diagnosis of hypertension - Patient's noncompliance with renal dialysis - Hypertensive chronic kidney disease with stage 1 through stage 4 chronic kidney disease, or unspecified chronic kidney disease - Radiographic dye allergy status INPATIENT VISIT TRACKING (12 MO.) 07/18/2018 22:44 [facility] TYPE: General Medicine DIAGNOSES: - Hypoxemia - End stage renal disease - Pulmonary hypertension, unspecified - Chronic right heart failure - Personal history of other diseases of urinary system - Fever, unspecified - Pleural effusion, not elsewhere classified - Anemia in chronic kidney disease - Dependence on renal dialysis 05/26/2018 11:57 [facility] TYPE: General Medicine DIAGNOSES: - Acute [...] specified personal risk factors, not elsewhere classified [email or web address]
--- NOTE | 2018-08-13 13:37 | EKG ---
[facility] [address] [place] [address] Signed Sinus tachycardia Otherwise normal ECG When compared with ECG of 19-JUN-2018 23:47, Nonspecific T wave abnormality no longer evident in Lateral leads Confirmed by MONROE WISEMAN MD ([id number]) on 08/13/2018 1:37:28 PM Electronically Signed By: MONROE WISEMAN MD 08/13/18 1337 PATIENT NAME: CONOR LOUISE Electrocardiogram DATE OF : [birth year] PHYSICIAN: MONROE WISEMAN MD REPORT #: [id number] REPORT IS CONFIDENTIAL AND NOT TO BE RELEASED WITHOUT AUTHORIZATION
== END 2018-08-13 13:55 | disposition home or self-care (01) ==
LOC: ED 10:24
DX: N18.6 End stage renal disease (principal); Z99.2 Dependence on renal dialysis; J90 Pleural effusion, not elsewhere classified; E87.5 Hyperkalemia; R77.8 Other specified abnormalities of plasma proteins; Z91.041 Radiographic dye allergy status; Z88.5 Allergy status to narcotic agent; Z88.8 Allergy status to other drugs, medicaments and biological substances; Z79.899 Other long term (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
CPT/HCPCS: 71045; 80053; 84484; 84703; 85025; 93005; 93010; 96374; 99285-25; J2405

== ENCOUNTER 2018-08-20 13:08 | Emergency (ER) | payer MEDICARE, OTHER ==
[~2018-08-20] VITALS: Ht 170.2 cm; Wt 68.0 kg
--- OUTSIDE RECORDS SUMMARY | 2018-08-20 13:10 | XMS ---
PreManage Notification: CONOR LOUISE Security Pattern Technician Events No recent Security Events currently on file CRITERIA MET - 6 ED Visits in 6 Months - [facility] - Has Care Guidelines - PDMP - [facility] - 2 Visits in 30 Days CARE PROVIDERS TIEN NICHOLSON [facility] 05/28/[facility]-Current PHONE: Unknown Karena has no Care Guidelines for this patient. Care History Medical/Surgical 05/28/2018 [facility] - PATIENT HAS AN APT WITH PCP DR NICHOLSON ON 09/11/18. - PATIENT RN NAVIGATOR- DR HINSON- [phone] - Patient is currently established with St. [...] providing care. E.D. VISIT COUNT (12 MO.) 3 [facility] [address] [facility] [address] [facility] [place] TOTAL 15 NOTE: Visits indicate total known visits. ED/UCC VISIT TRACKING (12 MO.) 08/20/2018 13:08 [facility] [place] TYPE: Emergency COMPLAINT: - CHEST PAIN, SOB 08/13/2018 10:25 [facility] [place] TYPE: Emergency COMPLAINT: - CHEST PRESSURE DIAGNOSES: - Allergy status to other drugs, medicaments and biological substances status - Pleural effusion, not elsewhere classified - End stage renal disease - Allergy status to narcotic agent status - Hyperkalemia - Other specified abnormalities of plasma proteins - Other long term care social worker (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 - Radiographic dye allergy status - Dependence on renal dialysis - Chest pain, unspecified 08/13/2018 00:00 [facility] TYPE: Emergency 07/18/2018 22:44 [facility] TYPE: Emergency DIAGNOSES: - Hypoxemia - Pleural [...] PAIN DIAGNOSES: - Other chest pain - senior care (current) use of opiate analgesic - Allergy status to other drugs, medicaments and biological substances status - End stage renal disease - Dependence on renal dialysis - Personal history of nicotine dependence - Fluid overload, unspecified - Radiographic dye allergy status - Heart failure, unspecified - Other long term care social worker (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 06/12/2018 13:45 [facility] [place] TYPE: Emergency COMPLAINT: - SOB DIAGNOSES: - Shortness of breath - Radiographic dye allergy status - Unspecified asthma, uncomplicated - Hyperkalemia - Allergy status to narcotic agent status - Dependence on renal dialysis - Fluid overload, unspecified - Other assisted (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 - Allergy status to other drugs, medicaments and biological substances status - Chronic kidney disease, unspecified 06/11/2018 07:55 [facility] [place] TYPE: Emergency COMPLAINT: - DIFFICULTY BREATHING,VOMITING DIAGNOSES: - Chronic pulmonary edema - Shortness of breath - Other long term care social worker (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 - Radiographic dye allergy status - vermin exterminator (current) use of opiate analgesic - Personal history of nicotine dependence 06/04/2018 06:07 [facility] TYPE: Emergency COMPLAINT: - SOB DIAGNOSES: - Shortness of breath - Allergy status to other drugs, medicaments and biological substances status - Radiographic dye allergy status - Other assisted (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 - Dyspnea, unspecified - Allergy status to narcotic agent status - Respiratory syncytial virus as the cause of diseases classified elsewhere 05/26/2018 11:57 [facility] TYPE: Emergency DIAGNOSES: - Acute respiratory distress - Chest pain, unspecified - Other ascites - Pleural effusion, not elsewhere classified 05/26/2018 07:23 [facility] TYPE: Emergency COMPLAINT: - FLU SYMPTOMS DIAGNOSES: - Allergy status to other drugs, medicaments and biological substances status - Other assisted (current) drug therapy - Radiographic dye allergy status - Dependence on renal dialysis - Pleural effusion, not elsewhere classified - Allergy status to narcotic agent status - Shortness of breath 05/25/2018 11:53 [facility] [place] TYPE: Emergency COMPLAINT: - SOB/COUGH DIAGNOSES: - Dependence on renal dialysis - Shortness of breath - Allergy status to narcotic agent status - Pneumonia, unspecified organism - Other long term care social worker (current) drug therapy - Radiographic dye allergy status - Pleural effusion, not elsewhere classified - Allergy status to other drugs, medicaments and biological substances status 05/10/2018 07:20 [facility] [place] TYPE: Emergency COMPLAINT: - PREVIOUS BLOODY NOSE DIAGNOSES: - Epistaxis - Other long term care social worker (current) drug therapy - End stage renal [...] Epigastric pain - Other long term care social worker (current) drug therapy 09/16/2017 23:06 [facility] [place] TYPE: Emergency COMPLAINT: - BP PROBLEM,RENAL FAILURE DIAGNOSES: - Chronic kidney disease, unspecified - Dependence on renal dialysis - Pain, unspecified - Allergy status to narcotic agent status - Nicotine dependence, unspecified, uncomplicated - Other long term care social worker (current) drug therapy - Elevated blood-pressure reading, without diagnosis of hypertension - Patient's noncompliance with renal dialysis - Hypertensive chronic kidney disease with stage 1 through stage 4 chronic kidney disease, or unspecified chronic kidney disease - Radiographic dye allergy status INPATIENT VISIT TRACKING (12 MO.) [facility] DIAGNOSES: - Hypoxemia - End stage renal disease - Pulmonary hypertension, unspecified - Chronic right heart failure - Personal history of other diseases of urinary system - Fever, unspecified - Pleural effusion, not elsewhere classified - Anemia in chronic kidney disease - Dependence on renal dialysis 05/26/2018 11:57 [facility] TYPE: General Medicine DIAGNOSES: - Acute [...] specified personal risk factors, not elsewhere classified [email or web address]
== END 2018-08-20 15:50 | disposition short-term general hospital (02) ==
LOC: ED 13:08
DX: J81.1 Chronic pulmonary edema (principal); N18.9 Chronic kidney disease, unspecified; Z99.2 Dependence on renal dialysis; Z88.5 Allergy status to narcotic agent; Z88.8 Allergy status to other drugs, medicaments and biological substances; Z91.041 Radiographic dye allergy status; Z79.899 Other long term (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
CPT/HCPCS: 71045; 99285-25

== ENCOUNTER 2018-11-06 08:23 | Emergency (ER) | payer MEDICARE, OTHER ==
[~2018-11-06] VITALS: Ht 170.2 cm; Wt 76.9 kg
--- OUTSIDE RECORDS SUMMARY | 2018-11-06 08:30 | XMS ---
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 Care History Medical/Surgical 05/28/2018 [facility] - PATIENT HAS AN APT WITH PCP DR NICHOLSON ON 09/11/18. - PATIENT BOX FINISHER- DR HINSON- [phone] - Patient is currently established with [facility]. If patient is seen in the ED during business hours. Please contact [facility] at [facility]. Care Recommendation: This patient has had [...] providing care. E.D. VISIT COUNT (12 MO.) 4 [place] [address] [facility] [place] TOTAL 17 NOTE: Visits indicate total known visits. ED/UCC VISIT TRACKING (12 MO.) 11/06/2018 08:24 [facility] [place] TYPE: Emergency COMPLAINT: - CHEST PAIN [facility]2018 [facility] DIAGNOSES: - Dependence on renal dialysis - Pleural effusion, not elsewhere classified - End stage renal disease - Shortness of breath - Shortness of Breath 10/16/2018 23:10 [facility] [place] TYPE: Emergency COMPLAINT: - EXCESS FLUID DIAGNOSES: - Shortness of breath - Thrombocytopenia, unspecified - Allergy status to other drugs, medicaments and biological substances status - Allergy status to narcotic agent status - Other pulmonary embolism without acute cor pulmonale - Acute kidney failure, unspecified - Patient's other noncompliance with medication regimen - Chronic kidney disease, unspecified - Radiographic dye allergy status - Dependence on renal dialysis - Other emt intermediate (current) drug therapy - Hypertensive chronic kidney disease with stage 1 through stage 4 chronic kidney disease, or unspecified chronic kidney disease 08/20/2018 13:08 [facility] [place] TYPE: Emergency COMPLAINT: - CHEST PAIN, SOB DIAGNOSES: - Dependence on renal dialysis - Chronic kidney disease, unspecified - Allergy status to other drugs, medicaments and biological substances status - Chronic pulmonary edema - Other emt intermediate (current) drug therapy - Allergy status to narcotic agent status - Dyspnea, unspecified - Radiographic dye allergy status 08/13/2018 10:25 [facility] [place] TYPE: Emergency COMPLAINT: - CHEST PRESSURE DIAGNOSES: - Allergy status to other drugs, medicaments and biological substances status - Pleural effusion, not elsewhere classified - End stage renal disease - Allergy status to narcotic agent status - Hyperkalemia - Other specified abnormalities of plasma proteins - Other emt intermediate (current) drug therapy - Radiographic dye allergy status - Dependence on renal dialysis - Chest pain, unspecified 08/13/2018 00:00 [facility] TYPE: Emergency 07/18/2018 22:44 [facility] TYPE: Emergency DIAGNOSES: - Hypoxemia - [...] status - Heart failure, unspecified - Other assisted (current) drug therapy 06/12/2018 13:45 [facility] [place] TYPE: Emergency COMPLAINT: - SOB DIAGNOSES: - Shortness of breath - Radiographic dye allergy status - Unspecified asthma, uncomplicated - Hyperkalemia - Allergy status to narcotic agent status - Dependence on renal dialysis - Fluid overload, unspecified - Other emt intermediate (current) drug therapy - Allergy status to other drugs, medicaments and biological substances status - Chronic kidney disease, unspecified 06/11/2018 07:55 [facility] [place] TYPE: Emergency COMPLAINT: - DIFFICULTY BREATHING,VOMITING DIAGNOSES: - Chronic pulmonary edema - Shortness of breath - Other assisted (current) drug therapy - Radiographic dye allergy status - [facility] (current) use of opiate analgesic - Personal history of nicotine dependence 06/04/2018 06:07 [facility] TYPE: Emergency COMPLAINT: - SOB DIAGNOSES: - Shortness of breath - Allergy status to other drugs, medicaments and biological substances status - Radiographic dye allergy status - Other emt intermediate (current) drug therapy - Dyspnea, unspecified - Allergy status to narcotic agent status - Respiratory syncytial virus as the cause of diseases classified elsewhere 05/26/2018 11:57 [facility] TYPE: Emergency DIAGNOSES: - Acute respiratory distress - Chest pain, unspecified - Other ascites - Pleural effusion, not elsewhere classified 05/26/2018 07:23 [facility] TYPE: Emergency COMPLAINT: - FLU SYMPTOMS DIAGNOSES: - Allergy status to other drugs, medicaments and biological substances status - Other emt intermediate (current) drug therapy - Radiographic dye allergy status - Dependence on renal dialysis - Pleural effusion, not elsewhere classified - Allergy status to narcotic agent status - Shortness of breath 05/25/2018 11:53 [facility] [place] TYPE: Emergency COMPLAINT: - SOB/COUGH DIAGNOSES: - Dependence on renal dialysis - Shortness of breath - Allergy status to narcotic agent status - Pneumonia, unspecified organism - Other emt intermediate (current) drug therapy - Radiographic dye allergy status - Pleural effusion, not elsewhere classified - Allergy status to other drugs, medicaments and biological substances status 05/10/2018 07:20 [facility] [place] TYPE: Emergency COMPLAINT: - PREVIOUS BLOODY NOSE DIAGNOSES: - Epistaxis - Other assisted (current) drug therapy - End stage renal [...] unspecified, uncomplicated - Epigastric pain - Other emt intermediate (current) drug therapy INPATIENT VISIT TRACKING (12 MO.) 10/17/2018 03:[facility] TYPE: General Medicine DIAGNOSES: - Shortness of breath - Pleural effusion, not elsewhere classified - End stage renal disease - Dependence on renal dialysis 08/20/2018 17:21 [facility] [place] TYPE: General Medicine DIAGNOSES: - Pleural Effusion - Chronic pulmonary edema 07/18/2018 22:44 [facility] TYPE: General Medicine DIAGNOSES: - Hypoxemia - End stage renal disease - Pulmonary hypertension, unspecified - Chronic right heart failure - Personal history of other diseases of urinary system - Fever, unspecified - Pleural effusion, not elsewhere classified - Anemia in chronic kidney disease - Dependence on renal dialysis 05/26/2018 11:57 [facility] DIAGNOSES: - Acute respiratory [...] specified personal risk factors, not elsewhere classified [email or web address]
--- NOTE | 2018-11-06 22:04 | EKG ---
[facility] [address] [place] [address] Signed Sinus tachycardia Rightward axis Borderline ECG When compared with ECG of 13-AUG-2018 10:48, QRS axis shifted right Nonspecific T wave abnormality now evident in Lateral leads Confirmed by JACKIE DOLAN MD ([id number]) on 11/06/2018 10:04:00 PM Electronically Signed By: JACKIE DOLAN MD 11/06/18 [id number] PATIENT NAME: CONOR LOUISE Electrocardiogram DATE OF : [birth year] PHYSICIAN: JACKIE DOLAN MD REPORT #: [id number] REPORT IS CONFIDENTIAL AND NOT TO BE RELEASED WITHOUT AUTHORIZATION
== END 2018-11-06 13:56 | disposition short-term general hospital (02) ==
LOC: ED 08:23
DX: J96.01 Acute respiratory failure with hypoxia (principal); J90 Pleural effusion, not elsewhere classified; J81.1 Chronic pulmonary edema; I31.3 Pericardial effusion (noninflammatory); Z99.2 Dependence on renal dialysis; Z88.5 Allergy status to narcotic agent; Z88.6 Allergy status to analgesic agent; Z91.041 Radiographic dye allergy status; Z88.8 Allergy status to other drugs, medicaments and biological substances; Z79.899 Other long term (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
CPT/HCPCS: 71045; 71260; 80053; 84484; 84703; 85025; 93005; 93010; 99285-25; J1170; J1200; J2405; J2930

== ENCOUNTER 2018-11-27 21:50 | Emergency (ER) | payer MEDICARE, OTHER ==
[~2018-11-27] VITALS: Ht 170.2 cm; Wt 76.7 kg
--- OUTSIDE RECORDS SUMMARY | 2018-11-27 21:52 | XMS ---
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 [place] - Has Care Guidelines - PDMP - [facility] [place] - 2 Visits in 30 Days CARE PROVIDERS TIEN NICHOLSON Internal Medicine 05/28/2018-Current PHONE: Unknown Karena has no Care Guidelines for this patient. Care History Medical/Surgical 11/07/[address] [facility] Dr Nicholson has not seen Pt since 06/08/2018. 07/12/2018 \R\ Pt canceled appt w/ Dr Nicholson 07/18/2018 \R\ Pt LWOS in [facility] 08/18/2018 \R\ Pt canceled appt w/ Dr Nicholson 09/12/19. \R\ Pt was N/S for appt w/ Dr Nicholson 05/28/[address] [facility] - PATIENT HAS AN APT WITH PCP DR NICHOLSON ON 09/11/18. - PATIENT REFLOW OPERATOR- DR HINSON- [phone] - Patient is currently established with [facility]. If patient is seen in the ED during business hours. Please contact CHWs at [facility]. Care Recommendation: This patient has had 5 or more Emergency Department visits in the last 12 months.\T\nbsp; Patient requires education on the scope and purpose of the ED as an acute care provider not a Primary Care Provider and should not be utilized for chronic conditions.\T\nbsp; These are guidelines and the provider should exercise clinical judgment when providing care. Timothy VISIT COUNT (12 MO.) 4 [facility] 14 [facility] [place] TOTAL 18 NOTE: Visits indicate total known visits. ED/UCC VISIT TRACKING (12 MO.) 11/27/2018 21:50 [facility] [place] [place] TYPE: Emergency COMPLAINT: - SOB, POSS HIGH BLOOD PRESSURE 11/06/2018 08:24 [facility] TYPE: Emergency COMPLAINT: - CHEST PAIN DIAGNOSES: - Other intermediate (current) drug therapy - Allergy status to analgesic agent status - Pleural effusion, not elsewhere classified - Dependence on renal dialysis - Radiographic dye allergy status - Other chest pain - Pericardial effusion (noninflammatory) - Allergy status to narcotic agent status - Acute respiratory failure with hypoxia - Chronic pulmonary edema - Allergy status to other drugs, medicaments and biological substances status 10/17/2018 03:19 [facility] TYPE: Emergency DIAGNOSES: - Dependence on renal dialysis - Pleural effusion, not elsewhere classified - End stage renal disease - Shortness of breath - Shortness of Breath 10/16/2018 23:10 [facility] [place] TYPE: Emergency COMPLAINT: - EXCESS FLUID DIAGNOSES: [...] - Dependence on renal dialysis - Other intermediate (current) drug therapy - Hypertensive chronic kidney disease with stage 1 through stage 4 chronic kidney disease, or unspecified chronic kidney disease 08/20/2018 13:08 [facility] [place] TYPE: Emergency COMPLAINT: - CHEST PAIN, SOB DIAGNOSES: - Dependence on renal dialysis - Chronic kidney disease, unspecified - Allergy status to other drugs, medicaments and biological substances status - Chronic pulmonary edema - Other intermediate (current) drug therapy - Allergy status to narcotic agent status - Dyspnea, unspecified - Radiographic dye allergy status 08/13/2018 10:25 [facility] TYPE: Emergency COMPLAINT: - CHEST PRESSURE DIAGNOSES: - Allergy status to other drugs, medicaments and biological substances status - Pleural effusion, not elsewhere classified - End stage renal disease - Allergy status to narcotic agent status - Hyperkalemia - Other specified abnormalities of plasma proteins - Other intermediate (current) drug therapy - Radiographic dye allergy status - Dependence on renal dialysis - Chest pain, unspecified 08/13/2018 [facility]00 [facility] 07/18/2018 22:44 [facility] TYPE: Emergency DIAGNOSES: - Hypoxemia - Pleural effusion, not elsewhere classified - Cough - Pneumonia - Fever, unspecified - Personal history of other diseases of urinary system 07/18/2018 17:27 [facility] [place] TYPE: Emergency COMPLAINT: - SINUS CONGESTION/ FEVER DIAGNOSES: - Personal history of nicotine dependence - Other specified respiratory disorders - Cough - Radiographic dye allergy status - Allergy status to narcotic agent status - Chronic kidney disease, unspecified - Allergy status to other drugs, medicaments and biological substances status 06/19/2018 23:43 [facility] [place] TYPE: Emergency COMPLAINT: - CHEST PAIN DIAGNOSES: - Other chest pain - care home (current) use of opiate analgesic - Allergy status to other drugs, medicaments and biological substances status - End stage renal disease - Dependence on renal dialysis - Personal history of nicotine dependence - Fluid overload, unspecified - Radiographic dye allergy status - Heart failure, unspecified - Other intermediate (current) drug therapy 06/12/2018 13:45 [facility] [place] [place] TYPE: Emergency COMPLAINT: - SOB DIAGNOSES: - Shortness of breath - Radiographic dye allergy status - Unspecified asthma, uncomplicated - Hyperkalemia - Allergy status to narcotic agent status - Dependence on renal dialysis - Fluid overload, unspecified - Other intermediate (current) drug therapy - Allergy status to other drugs, medicaments and biological substances status - Chronic kidney disease, unspecified 06/11/2018 07:55 [facility] [place] TYPE: Emergency COMPLAINT: - DIFFICULTY BREATHING,VOMITING DIAGNOSES: - Chronic pulmonary edema - Shortness of breath - Other intermediate (current) drug therapy - Radiographic dye allergy status - intermodal dispatcher (current) use of opiate analgesic - Personal history of nicotine dependence 06/04/2018 06:07 [facility] [place] TYPE: Emergency COMPLAINT: - SOB DIAGNOSES: - Shortness of breath - Allergy status to other drugs, medicaments and biological substances status - Radiographic dye allergy status - Other intermediate (current) drug therapy - Dyspnea, unspecified - Allergy status to narcotic agent status - Respiratory syncytial virus as the cause of diseases classified elsewhere 05/26/2018 11[facility]57 [facility]: Emergency DIAGNOSES: - Acute respiratory distress - Chest pain, unspecified - Other ascites - Pleural effusion, not elsewhere classified 05/26/2018 07:23 [facility] TYPE: Emergency COMPLAINT: - FLU SYMPTOMS DIAGNOSES: - Allergy status to other drugs, medicaments and biological substances status - Other intermediate (current) drug therapy - Radiographic dye allergy status - Dependence on renal dialysis - Pleural effusion, not elsewhere classified - Allergy status to narcotic agent status - Shortness of breath 05/25/2018 11:53 [facility] [place] TYPE: Emergency COMPLAINT: - SOB/COUGH DIAGNOSES: - Dependence on renal dialysis - Shortness of breath - Allergy status to narcotic agent status - Pneumonia, unspecified organism - Other salvage determiner (current) drug therapy - Radiographic dye allergy status - Pleural effusion, not elsewhere classified - Allergy status to other drugs, medicaments and biological substances status 05/10/2018 07:20 [facility] [place] TYPE: Emergency COMPLAINT: - PREVIOUS BLOODY NOSE DIAGNOSES: - Epistaxis - Other intermediate (current) drug therapy - End stage renal disease - Allergy status to narcotic agent status - Dependence on renal dialysis - Allergy status to other drugs, medicaments and biological substances status - Radiographic dye allergy status - Hypertensive heart and chronic kidney disease without heart failure, with stage 5 chronic kidney disease, or end stage renal disease 02/14/2018 23:09 [facility] TYPE: Emergency COMPLAINT: - ABD PAIN DIAGNOSES: - Allergy status to narcotic agent status - Functional dyspepsia - Radiographic dye allergy status - Other ascites - Nicotine dependence, unspecified, uncomplicated - Epigastric pain - Other salvage determiner (current) drug therapy INPATIENT VISIT TRACKING (12 MO.) 10/17/2018 03:19 [facility] DIAGNOSES: - Shortness of breath - Pleural effusion, not elsewhere classified - End stage renal disease - Dependence on renal dialysis 08/20/2018 17:21 [facility] TYPE: General Medicine DIAGNOSES: - Pleural Effusion - Chronic pulmonary edema 07/18/2018 22:44 [facility] TYPE: General Medicine DIAGNOSES: - Hypoxemia - End stage renal disease - Pulmonary hypertension, unspecified - Chronic right heart failure - Personal history of other diseases of urinary system - Fever, unspecified - Pleural effusion, not elsewhere classified - Anemia in chronic kidney disease - Dependence on renal dialysis 05/26/2018 11:57 [facility] TYPE: General Medicine DIAGNOSES: - [...] specified personal risk factors, not elsewhere classified [email or web address]
[2018-11-28] MEDS ORDERED: CITALOPRAM HBR20 MG PO (10:12)
--- NOTE | 2018-11-28 20:05 | EKG ---
[facility] [address] [place] [address] Signed Poor data quality, interpretation may be adversely affected Left axis deviation Nonspecific intraventricular block Cannot rule out Septal infarct , age undetermined T wave abnormality, consider lateral ischemia Abnormal ECG When compared with ECG of 06-NOV-2018 08:32, QRS duration has increased Minimal criteria for Septal infarct are now present Inverted T waves have replaced nonspecific T wave abnormality in Lateral leads Confirmed by JACKIE DOLAN MD ([id number]) on 11/28/2018 8:05:09 PM Electronically Signed By: JACKIE DOLAN MD 11/28/182004 PATIENT NAME: CONOR LOUISE Electrocardiogram DATE OF : 89 PHYSICIAN: JACKIE DOLAN MD REPORT #: [id number] REPORT IS CONFIDENTIAL AND NOT TO BE RELEASED WITHOUT AUTHORIZATION
== END 2018-11-28 01:20 | disposition home or self-care (01) ==
LOC: ED 21:50
DX: I11.0 Hypertensive heart disease with heart failure (principal); I50.9 Heart failure, unspecified; J90 Pleural effusion, not elsewhere classified; Z91.041 Radiographic dye allergy status; Z88.5 Allergy status to narcotic agent; Z88.6 Allergy status to analgesic agent; Z88.8 Allergy status to other drugs, medicaments and biological substances; Z99.2 Dependence on renal dialysis; Z91.19 Patient's noncompliance with other medical treatment and regimen; Z79.899 Other long term (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
CPT/HCPCS: 71046; 80053; 85025; 93005; 93010; 96374; 96375; 99285-25; J1940; J2405

== ENCOUNTER 2018-11-28 09:12 | Emergency (ER) | payer MEDICARE, OTHER ==
[~2018-11-28] VITALS: Ht 170.2 cm; Wt 76.7 kg
--- OUTSIDE RECORDS SUMMARY | 2018-11-28 09:14 | XMS ---
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 Care History Medical/Surgical 11/07/2018 [facility] Dr Nicholson has not seen Pt since 06/08/2018. 07/12/2018 \R\ Pt canceled appt w/ Dr Nicholson 07/18/2018 \R\ Pt LWOS in [facility]in [facility] 08/18/2018 \R\ Pt canceled appt w/ Dr Nicholson 09/12/19. \R\ Pt was N/S for appt w/ Dr Nicholson 05/28/2018 [facility] - PATIENT HAS AN APT WITH PCP DR NICHOLSON ON 09/11/18. - PATIENT NETWORK MANAGEMENT SPECIALIST- DR HINSON- [phone] - Patient is currently established with [facility]. If patient is seen in the ED during business hours. Please contact CHWs at [facility]. Care Recommendation: This patient has had 5 [...] care. Timothy VISIT COUNT (12 MO.) 4 [facility] 15 AM[facility] [place] TOTAL 19 NOTE: Visits indicate total known visits. ED/UCC VISIT TRACKING (12 MO.) 11/28/2018 09:12 [facility] [place] TYPE: Emergency COMPLAINT: - SOB, BLOOD PRESSURE PROBLEM 11/27/2018 21:50 [facility] TYPE: Emergency COMPLAINT: - SOB, POSS HIGH BLOOD PRESSURE 11/06/2018 08:24 [facility] [place] TYPE: Emergency COMPLAINT: - CHEST PAIN DIAGNOSES: - Other termite control service representative (current) drug therapy - Allergy status to [...] medicaments and biological substances status 10/17/2018 03:19 [facility] TYPE: Emergency DIAGNOSES: - Dependence on [...] - Dependence on renal dialysis - Other custodial (current) drug therapy - Hypertensive chronic kidney disease with stage 1 through stage 4 chronic kidney disease, or unspecified chronic kidney disease 08/20/2018 13:08 [facility] [place] TYPE: Emergency COMPLAINT: - CHEST PAIN, SOB DIAGNOSES: - Dependence on renal dialysis - Chronic kidney disease, unspecified - Allergy status to other drugs, medicaments and biological substances status - Chronic pulmonary edema - Other custodial (current) drug therapy - Allergy status to [...] specified abnormalities of plasma proteins - Other custodial (current) drug therapy - Radiographic dye allergy status - Dependence on renal dialysis - Chest pain, unspecified 08/13/2018 00:00 [facility] TYPE: Emergency 07/18/2018 22:44 [facility] TYPE: Emergency DIAGNOSES: - Hypoxemia - [...] PAIN DIAGNOSES: - Other chest pain - intermediate (current) use of opiate analgesic - Allergy status to other drugs, medicaments and biological substances status - End stage renal disease - Dependence on renal dialysis - Personal history of nicotine dependence - Fluid overload, unspecified - Radiographic dye allergy status - Heart failure, unspecified - Other custodial (current) drug therapy 06/12/2018 13:45 [facility] [place] TYPE: Emergency COMPLAINT: - SOB DIAGNOSES: - Shortness of breath - Radiographic dye allergy status - Unspecified asthma, uncomplicated - Hyperkalemia - Allergy status to narcotic agent status - Dependence on renal dialysis - Fluid overload, unspecified - Other custodial (current) drug therapy - Allergy status to other drugs, medicaments and biological substances status - Chronic kidney disease, unspecified 06/11/2018 07:55 [facility] [place] TYPE: Emergency COMPLAINT: - DIFFICULTY BREATHING,VOMITING DIAGNOSES: - Chronic pulmonary edema - Shortness of breath - Other termite control service representative (current) drug therapy - Radiographic dye allergy status - ferry terminal agent (current) use of opiate analgesic - Personal history of nicotine dependence 06/04/2018 06:07 [facility] [place] TYPE: Emergency COMPLAINT: - SOB DIAGNOSES: - Shortness of breath - Allergy status to other drugs, medicaments and biological substances status - Radiographic dye allergy status - Other termite control service representative (current) drug therapy - Dyspnea, unspecified - Allergy status to narcotic agent status - Respiratory syncytial virus as the cause of diseases classified elsewhere 05/26/2018 11:57 [facility] TYPE: Emergency DIAGNOSES: - Acute respiratory distress - Chest pain, unspecified - Other ascites - Pleural effusion, not elsewhere classified 05/26/2018 07:23 [facility] TYPE: Emergency COMPLAINT: - FLU SYMPTOMS DIAGNOSES: - Allergy status to other drugs, medicaments and biological substances status - Other termite control service representative (current) drug therapy - Radiographic dye allergy status - Dependence on renal dialysis - Pleural effusion, not elsewhere classified - Allergy status to narcotic agent status - Shortness of breath 05/25/2018 11:53 [facility] TYPE: Emergency COMPLAINT: - SOB/COUGH DIAGNOSES: - Dependence on renal dialysis - Shortness of breath - Allergy status to narcotic agent status - Pneumonia, unspecified organism - Other termite control service representative (current) drug therapy - Radiographic dye allergy status - Pleural effusion, not elsewhere classified - Allergy status to other drugs, medicaments and biological substances status 05/10/2018 07:20 [facility] [place] TYPE: Emergency COMPLAINT: - PREVIOUS BLOODY NOSE DIAGNOSES: - Epistaxis - Other termite control service representative (current) drug therapy - End stage renal [...] unspecified, uncomplicated - Epigastric pain - Other termite control service representative (current) drug therapy INPATIENT VISIT TRACKING (12 MO.) 10/17/2018 03[facility] DIAGNOSES: - Shortness of breath - Pleural effusion, not elsewhere classified - End stage renal disease - Dependence on renal dialysis 08/20/2018 [facility]: General [facility] DIAGNOSES: - Pleural Effusion - Chronic pulmonary edema 07/18/2018 22:44 [facility] [place] TYPE: General Medicine DIAGNOSES: - Hypoxemia - End stage renal disease - Pulmonary hypertension, unspecified - Chronic right heart failure - Personal history of other diseases of urinary system - Fever, unspecified - Pleural effusion, not elsewhere classified - Anemia in chronic kidney disease - Dependence on renal dialysis 05/26/2018 11:57 [facility] [place] TYPE: General Medicine DIAGNOSES: - Acute respiratory [...] specified personal risk factors, not elsewhere classified [email or web address]
[2018-11-28] MEDS ORDERED: CITALOPRAM HBR20 MG PO (10:12)
== END 2018-11-28 12:07 | disposition home or self-care (01) ==
LOC: ED 09:12
DX: I50.9 Heart failure, unspecified (principal); N18.9 Chronic kidney disease, unspecified; J90 Pleural effusion, not elsewhere classified; Z87.891 Personal history of nicotine dependence; Z91.041 Radiographic dye allergy status; Z88.5 Allergy status to narcotic agent; Z88.8 Allergy status to other drugs, medicaments and biological substances; Z79.899 Other long term (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
CPT/HCPCS: 32555; 71045; 99284-25; J2405; P9047

== ENCOUNTER 2018-12-09 23:16 | Emergency (ER) | payer MEDICARE, OTHER ==
[~2018-12-09] VITALS: Ht 170.2 cm; Wt 71.7 kg
--- OUTSIDE RECORDS SUMMARY | ~2018-12-09 | XMS | Encounter Summary ---
Demographics + + + | Address | [address] | | | [place] [address] | + + + | Home Phone [...] | | | | | [place] [address] | | + + + + + | Thania Mallory | ECON | [address] | | | | | [place] [address] | | + + + + + | Deidra Weldon | ECON | [address] | | | | | [place] | | | | | [address] | | + + + + + Care Team Providers + +------+ + | Care Motorcycle Racer Name | Role | Phone | + [...] Closed | | Pediatric | Diagnoses | Rufino, | Ped Echo | | | | Cardiology | Allergic | Sudhakar Castellanos, | Lab [address] | | | | | purpura | [address] | | | | | (HCC) | Anil Griffin | Elias Elizondo | | | | | Procedures | Long Chan | Dustin Mailcode: | | | | | TRANSTHORACI | [place], [place] | D[facility]8S | | | | | C | [address] | Dotayler | | | | | ECHOCARDIOGR | Phone: | [place], [place] | | | | | AM, PEDS | [phone] | [address] | | | | | | Fax: | Phone: | | | | | | [phone] | [phone] | | | | | | | Fax: | | | | | | | [phone] | +--------+--------+ + + + + Reason [...] Coordinators [address] | RN [address] | Update | | | | [address] [facility] | [facility] | | | | | Rd [place], [place] | [place], [place] | | | | | [address] | [address] | | | | | [phone] | | | +--------+ + + + [...] Denise | | | | | | [place], [place] | | | | | | [address] | | | | | | [phone] | | | | | | | | +--------+ + + + + + +------+--------+ + + | Name | Type | Priori | Associated Diagnoses | Order Schedule | | | | ty | | | + +------+--------+ + + | CELE[facility] HLA-A WILEY RES-KE | Lab | Routin | Allergic purpura- | Expected: 11/29/2012 | | | | e | MEDICARE [phone] | (Approximate), | | | | | | Expires: 11/26/2013 | + +------+--------+ + + | CELESTINO HLA-B WILEY RES-KE | Lab | Routin | Allergic [...] + + + | Please click | [facility] | | on view image for the detailed interpretation from [facility] results. | CARDIOLOGY | + + + + + | Procedure Note | + + | Interface, Cardiology Results - 12/21/2012 9:38 AM PDT Please click on view image | | for the detailed interpretation from [facility] results. | + + + + + + + | Performing | Address | City/State/Zipcode | Phone Number | | Organization | | | | + + + + + | [facility] | [address] | [place], [place] | | | CARDIOLOGY | [address] | [address] | | + + + + + LIT HLA-B WILEY ZHANG (12/20/2012 10:02 AM PDT) + + | Specimen | + + | Blood - Blood | + + + + + + + | Performing | Address | City/State/Zipcode | Phone Number | | Organization | | | | + + + + + | [facility] - | [address] | [place] [address] | | | IMMUNOGENETICS/TRANS | [address] [...] + + | [facility] - | [address] | [place] [address] | | | IMMUNOGENETICS/TRANS | [address] [...] - | [address] | [place], [place] | | | IMMUNOGENETICS/TRANS | [address] [...] - | [address] | [place], [place] | | | IMMUNOGENETICS/TRANS | [address] [...] + + | [facility] - | [address] | [place] [address] | | | IMMUNOGENETICS/TRANS | [address] | | | | [facility] LAB[facility]ATORY | | | | + + + + + LIT HLA-DQ LOW RES-KE (12/20/2012 10:02 AM PDT) + + | Specimen | + + | Blood - Blood | + + + + + + + | Performing | Address | City/State/Zipcode | Phone Number | | Organization | | | | + + + + + | [facility] - | [address] | [place] [address] | | | IMMUNOGENETICS/TRANS | [address] [...] | | | | COMPLETE | COMPLETE | | | | | | HISTORY: Pre-renal | | | | | | transplant work | | | | | | up. Chronic kidney | | | | | | disease. | | | | | | [...] | | | a volume of 79 | | | | | | ml. Right renal | | | | | | length is below | | | | | | 5thpercentile for | | | | | [...] | | | | | | peritonealdialysis. I | | | | | | laura portions of aorta | | | | | | and inferior vena cava | | | | | | are unremarkable. | | | | | | Urinary bladder is | | | | | | normal in appearance, | | | | | | though incompletely | | | | | | distended.Bladder volume | | | | | | measures up to 16 mL | | | | | | during the | | | | | | examination. After | | | | | | voiding, itis completely | | | | | | empty. IMPRESSION: | | | | | | Echogenic kidneys, right | | | | | | smaller than left, in | | | | | | keeping with history of | | | | | | chronicrenal | | | | | | disease. Peritoneal | | | | | | fluid, likely related to | | | | | | | | | | | | dialysis. Otherwiseun | | | | | | remarkable examination. | | | | | | END IMPRESSION | | | | | | Attending Radiologists: | | | | | | NELSON PINEDA, | | | | | | MDAuthor: NELSON | | | | | | MD EDWIN I have | | | | | | personally viewed this | | | | | | procedure/exam, reviewed | | | | | | this report, and | | | | | | madechanges to it where | | | | | | appropriate. | | | | | | Final/Electronically | | | | | | juan / NELSON | | | | | [...] | | + +---------+ + + | [place] [facility] OF | | | | | [...] | | | | | or focal | | | | | | destruction. There is | | | | | | noevidence of metabolic | | | | | | bone disease or bone | | | | | | dysplasia. The patient's | | | | | | chronologic age is 17 | | | | | | years 9 months. Mean | | | | | | for patient age is189.4 | | | | | | standard deviation is | | | | | | +/- 7.3 | | | | | | months. Observed bone | | | | | | age is closest to | | | | | | afemale of 17 years 0 | | | | | | months (192 months), | | | | | | according to standards | | | | | | of Gruelichand Gilberto. | | | | | | IMPRESSION: Observed | | | | | | bone age within one | | | | | | standard deviation of | | | | | | mean chronologic age. | | | | [...] | | | | signed / SHARLENE | | | | | | JQAUI 12/20/2012 10:03 | | | | | | AM | | | | + + + + + + + + | Specimen | + + | | + + + +---------+ + + | Performing | Address | City/State/Zipcode | Phone Number | | Organization | | | | + +---------+ + + | [facility]MENT OF | | | | | RADIOLOGY | | | | + +---------+ + + X-RAY CHEST 2 VIEW (12/20/2012 9:27 AM PDT) + + + + + [...] | | | | | | or | | | | | | pneumothorax. Normal | | | | | | heart size | | | | | [...] | | | | signed / SHARLENE | | | | | | JAQUI 12/20/2012 9:46 | | | | | | AM | | | | | | [...] [facility] | | | , SERUM | [facility],[address] | | [address] | | | | [place], [facility] [place] | | [place] - [place] | | | | [address] | | | | | | [phone].[employer]. | | | | | | Faisal [...] [facility] | [address] | [place], [place] | | | UNIV PTH - INTFC | | [address] | | + + + + + [...] | + + + + + | [facility] | [address] | [place] [address] | | | SERVICES, CORE | PARK [...] | + + + + + | [facility] | [address] | [place] [address] | | | SERVICES, CORE | LONG [...] - | | | | | | [place] | | + + + + + + + + | Specimen | + + | Blood - Blood | + + + + + + + | Performing | Address | City/State/Zipcode | Phone Number | | Organization | | | | + + + + + | [facility] | [address] | [place] [address] | | | [place] | | | | + + + [...] [facility] | [address] | [place] [address] | | | SERVICES, CORE | PARK [...] | [facility] | [address] | [place] [address] | | | SERVICES, CORE | PARK [...] | + + + + + | [facility] | [address] | [place] [address] | | | RIKY, [address]OM[address] | [address] | | | [...] - | | | | | | [place] | | + + + + + + + + | Specimen | + + | Blood - Blood | + + + + + + + | Performing | Address | City/State/Zipcode | Phone Number | | Organization | | | | + + + + + | [facility] - | [address] | [place] [address] | | | [place] | | | | + + + [...] + | Interpretation Criteria for QuantiFERON Testing: | [facility] | | Interpretation TB | REFERENCE LAB | | Ag-Nil Nil Mitogen-Nil | | | | | | (IU/mL)* (IU/mL) (IU/mL)* | | | | | | | | | | | | Positive >=0.35 | | | <=8.0 any | | | (and >= 25% of | | | Nil) | | | | | | | | | | | | Negative | | | <0.35 <=8.0 >=0.5 | | | (or <25% of | | | Nil) | | | | | | | | | | | | Indeterminate <0.35 <=8. | | | 0 <0.5 | | | (or <25% of | | | Nil) | | | | | | | | | | | | Indeterminate | | | any >8.0 any | | | | | | | | | | | | *Corrected for Nil | | | response. | | | NOTE: Diagnosing or excluding tuberculosis disease, and | | | assessing the probability of LTBI, requires a combination | | | of epidemiological, historical, | | | medical, and diagnostic findings that should be taken into | | | account when interpreting QuantiFERON TB Gold | | | results. | | | See CDC QFT-G Fact Sheet | | | at: | | | http://www.cdc.gov/nchstp/tb/pubs/tbfactssheets/181254.htm | | | Test performed by: [facility] | | | Public Health Lab [address] [place] [address] | | | | | + + [...] [facility] | [address] | [place] [address] | | | SERVICES, SPECIAL | PARK [...] INTERPRETATION: Prothrombin mutation analysis shows that | [facility] | | there is no mutation in either copy of the prothrombin gene at | DIAGNOSTIC | | nucleotide 58169. Please note that this assay only detects the | LABORATORIES | | [id number] point mutation and therefore a normal result [...] to assisting you again in the future. | | | As per your request, DNA has been analyzed for the presence of [id number] | | | mutation in the prothrombin [...] | examined; the clinical interpretation is detailed | | | above. Heterozygotes for the common prothrombin N71041D mutation | | | constitute approximately 2% of the normal white population (1,2). | | | References: 1.) Poort et al. Blood 88, 8572-9017 (1996). 2.) Ricardo | | | et al. Circulation 99, 999-1004 (1998). 3.) Al Montalvo, and | | | Chase. Amer J Clin Path 155, 439-47 (2001). This test was | | | developed and its performance characteristics determined by the [facility] | | | [facility]. It has | | | not been cleared or approved by the Food and Drug | | | Administration. FDA approval is not required for clinical use of | | | this test, and therefore validation was done as required under the | | | requirements of the Clinical Laboratory Improvement Act of | | | 1988. The [facility] | | | Center is a fully licensed and/or accredited clinical laboratory under | | | CLIA, [facility], and the State of [place]. Please note that our lab now | | | also offers a clinical diagnostic test to directly detect the most | | | common cause of hereditary thrombotic predisposition, the R506Q Factor | | | V Leiden mutation. Should this patient be undergoing a | | | hypercoagulable evaluation, a Factor V mutation analysis may also be | | | clinically indicated. Reviewed and electronically signed by | | | MINNIE ANTOINE MD,PhD 12/28/2012 12:24 PM | | + + + + + + + + | Performing | Address | City/State/[facility] | Phone Number | | Organization | | | | + + + + + | [facility] | [address] | [place] [address] | | | DIAGNOSTIC | [address] [...] | + + + + + | [facility] | [address] | [place] [address] | | | SERVICES, CORE | PARK [...] | + + + + + | [facility] | [address] | [place] [address] | | | SERVICES, CORE | LONG [...] Lab only. | LABORATORY | | | [facility] | + + + + + + + + | Performing | Address | City/State/Zipcode | Phone Number | | Organization | | | | + + + + + | [facility] | [address] | [place] [address] | | | SERVICES, HOMERO | PARK [...] Venous Thromboembolism (2.0 - 3.0) INR INR | LABORATORY | | for most patients with mech. valves (2.5 - 3.5) INR | SERVICES, CORE | + + + + + + + + | Performing | Address | City/State/Zipcode | Phone Number | | Organization | | | | + + + + + | [facility] | [address] | [place] [address] | | | SERVICES, HOMERO | LONG [...] | | | | COMBINED Ab SCREEN, | | | | | | IgG 0.89 IV or | | | | | | less.........Not | | | | | | Detected 0.90-1.09 | | | | | | IV............Indetermin | | | | | | ate- Repeat | | | | | | [...] | | | | | IV or Greater ....... | | | | | | Detected-IgM antibody to | | | | | | | | | | | | HSV | | | | | | | | | | | | detected, | | | | | | which [...] | | | | | [place], [place] [address] | | | | | | [phone].aruplab. | | | | | | Faisal [...] [facility] | [address] | [place], [place] | | | UNIV PTH - INTFC | | [address] | | + + + + + [...] | + + + + + | [facility] | [address] | [place] [address] | | | SERVICES, SPECIAL | PARK [...] C PCR, | Undetected | IU/mL | [facility] | | | QUANT | | | [...] + + + | [facility] | [address] | [place] [address] | | | DIAGNOSTIC | [address] [...] + | [facility] - | [address] | [place] [address] | | | [place] | | | [...] + | [facility] - | [address] | [place] [address] | | | [place] | | | [...] + | [facility] - | [address] | [place] [address] | | | [place] | | | [...] + | [facility] - | [address] | [place] [address] | | | [place] | | | | + + + [...] less......Not | | | | | | Dyeaggot79.0-21.9 | | | | | | U/mL.........Indetermina | | | | | | te - Repeat testing in | | | | | | 10-14 | | | | | | | | | | | | days may be | | | | | | helpful.22.0 U/mL or | | | | | | greater...Detected | | | | | | Interpretive information | | | | | | regarding serologic | | | | | | features | | | | | | ofEBV-associated | | | | | | diseases is available | | | | | | [email or web address] | | | | | | vdx.Performed by [facility] | | | | | | [facility],[address] | | | | | | [place] [address] | | | | | | [phone].aruplab. | | | | | | Faisal [...] [facility] | [address] | [place], [place] | | | UNIV PTH - INTFC | | [address] | | + + + + + [...] + + | CULTURE | C UrineSource: | | [facility] | | | RESULT | Urine | | [facility] - | | | | Final | | [place] | | | | CULTURE RESULT:No growth | | | | | | (<1000 col/ml) after 24 | | | | | | hours | | | | + + + + + + + + | Specimen | + + | Urine - Urine | + + + + + + + | Performing | Address | City/State/Zipcode | Phone Number | | Organization | | | | + + + + + | [facility] - | [address] | [place] [address] | | | [place] | | | | + + + [...] Lab only. | LABORATORY | | | SERVICESHOMERO | + + + + + + + + | Performing | Address | City/State/Zipcode | Phone Number | | Organization | | | | + + + + + | [facility] | [address] | [place] [address] | | | SERVICES, HOMERO | LONG [...] | | | | | in 10-14 | | | | | | days may be | | | | | | helpful. 35.0 AU/mL | | | | | | or Greater .... | | | | [...] by | | | | | | [facility],[address] | | | | | | [address] [place], [facility] [place] | | | | | | [address] | | | | | | [phone].[employer]. | | | | | | Faisal [...] [facility] | [address] | [place], [place] | | | UNIV PTH - INTFC | | [address] | | + + + + + [...] | + + + + + | [facility] | [address] | [place] [address] | | | SERVICES, CORE | LONG [...] [facility] | [address] | [place] [address] | | | SERVICES, CORE | LONG [...] | + + + | APTT Therapeutic | [facility] | | Range: (75 - 120) sec | LABORATORY | | Heparin levels of 0.35 - 0.7 U/mL | [facility] | + + + + + + + + | Performing | Address | City/State/Zipcode | Phone Number | | Organization | | | | + + + + + | [facility] | [address] | [place] [address] | | | [place] | [address] | | | + + + + + TRANSTHORACIC CIRILO DURAND (12/20/2012 12:00 AM PDT) + + + [...]
--- OUTSIDE RECORDS SUMMARY | ~2018-12-09 | XMS | Encounter Summary ---
Demographics + + + | Address | [address] | | | [place] [address] | + + + | Home Phone [...] | | | | | [place] [address] | | + + + + + | Thania Mallory | ECON | [address] | | | | | [place] [address] | | + + + + + | Deidra Weldon | ECON | [address] | | | | | [place] | | | | | [phone] | | + + + + + Care Team Providers + +------+ + | Care Bolt Maker Name | Role | Phone | + +------+ + | Jonathan Alonso MD | PCP | | + +------+ + Encounter Details +--------+ + + + + | Date | Type | Department | Care Team | Description | +--------+ + + + + | 01/20/ | Hospital | Radiology at [facility] | | | | 2014 | Encounter | [address] | | | | | | [place] Mailcode: | | | | | | [address] | | | | | | [place], [place] | | | | | | [address] | | | | | | [phone] | | | +--------+ + + + [...] 2022 | Encounter | | [address] | | | | | | [place], [place] | | | | | | [address] | | | | | | [phone] | | | | | | | [...] V | | | | | | (HCC) | | + +--------+ + [...] | | + +---------+ + + | [facility] DEPARTMENT OF | | | | [...]
--- OUTSIDE RECORDS SUMMARY | ~2018-12-09 | XMS | Encounter Summary ---
Demographics + + + | Address | [address] | | | [place] [address] | + + + | Home Phone [...] | | | | | [place] [address] | | + + + + + | Thania Mallory | ECON | [address] | | | | | [place] [phone] | | + + + + + | Deidra Weldon | ECON | [address] | | | | | [place] | | | | | [address] | | + + + + + Care Team Providers + +------+ + | Care Solar Installation Crew Supervisor Name | Role | Phone | + +------+ + | Shahid Camargo MD | PCP | Unavailable | + +------+ + Encounter Details +--------+ + + + + | Date | Type | Department | Care Team | Description | +--------+ + + + + | 12/19/ | Documentati | [facility] | Juan David Batres, | | | 2012 | on IP | Pharm[address] | PharmD [address] | | | | | [address] | [facility] | | | | | [place], [place] | [place] [address] | | | | | [address] | [phone] | | | | | | | [...] Denise | | | | | | [place], [place] | | | | | | [address] | | | | | | [phone] | | | | | | | | +--------+ + + + + documented as of this encounter Visit Diagnoses Not on filedocumented in this encounter"
--- OUTSIDE RECORDS SUMMARY | ~2018-12-09 | XMS | Encounter Summary ---
Demographics + + + | Address | [address] | | | [place] [address] | + + + | Home Phone | | + + + | Preferred Language | Unknown | + + + | Marital Status | Single | + + + | Druze Affiliation | Unknown | + + + [...] | | | | | [place] [address] | | + + + + + | Thania Mallory | ECON | [address] | | | | | [place] [address] | | + + + + + | Deidra Weldon | ECON | [address] | | | | | [place] | | | | | [address] | | + + + + + Care Team Providers + +------+ + | Care Category Director Name | Role | Phone | [...] Shun | | | | | [address] | [facility] | | | | | [place], [place] | [place] [address] | | | | | [address] | [phone] | | | | | | | [...] from patient and her family Pharmacy Preferences: [id number] [address] [place] [address] Updated Outpatient Medications: Current Medication List Name [...] reviewing the patient's medications for pre-transplant zachary luation. For any further questions regarding this information contact pharmacy, pager #[phone] Thank you, Juan David Batres Pager [phone] signed by Juan David Batres PharmD at 12/26/2012 9:18 AM PDTdocumented in this encounter Plan of Treatment +--------+ + + + + | Date | Type | Specialty | Care Team | Description | +--------+ + + + + | 05/04/ | Hospital | Adult Acute Care | El Starr MD | | | 2022 | Encounter | | [address] | | | | | | [place], [place] | | | | | | [address] | | | | | | [phone] | | | | | | | | +--------+ + + + + documented as of this encounter Visit Diagnoses Not on filedocumented in this encounter"
--- OUTSIDE RECORDS SUMMARY | ~2018-12-09 | XMS | Clinical Summary ---
Demographics + + + | Address | [address] | | | [place] [address] | + + + | Home Phone [...] | Author | Merged With [facility] (Historical as of | | | 10-20-18) | + + + | Organization | Merged With [facility] (Historical as of | | | 10-20-18) [...] Team Providers + +------+ + | Care Lay Out Carpenter Name | Role | Phone | + +------+ + | Tien Nicholson MD | PP | | + +------+ [...] + + + + + | Methylphenidate Hcl | Other (See Comments) | Medium | [...] mouth 3 (three) | tablet | | 11/23 | 10/23 | e | | tablet | times daily with | | | 19 | 20 | | | | meals. | | | | | | + + +--------+---------+------+------+-------+ | | Take 3 mLs by | | | | | Activ | | ipratropium-albutero | nebulization. | | | | | e | | l (DUO-NEB) 0.5-2.5 | | | | | | | | mg/3mL | | | | | | | + + +--------+---------+------+------+-------+ | valsartan (DIOVAN) | Take 1 tablet by | 30 | 11 | 06/04 | 04 | Activ | | 40 MG tablet | mouth daily. | tablet | | 03/25 | 0/20 | e | | | | | | 19 | 20 | | + + +--------+---------+------+------+-------+ | metoprolol | Take 1 tablet by | 30 | 2 | 05/2 | 05/2 | Activ | | (TOPROL-XL) 50 MG 24 | mouth daily. | tablet | | 1/20 | 0/20 | e | | hr tablet | | | | 19 | 20 | | + + +--------+---------+------+------+-------+ | promethazine | Take 1 tablet by | 30 | 0 | 05/2 | | Activ | | (PHENERGAN) 25 MG | mouth every 6 (six) | tablet | | 1/20 | | e | [...] mouth 3 | | | | | Activ | | (ZOFRAN) 4 MG | (three) times daily | | | | | e | | tabletIndications: | as needed for | | | | | | | Nausea and Vomiting | Nausea. | | | | | | + + +--------+---------+------+------+-------+ | pantoprazole | Take 40 mg by mouth | | | | | Activ | | (PROTONIX) 40 MG | every morning before | | | | | e | | tablet | breakfast. | | | | | | + + +--------+---------+------+------+-------+ | albuterol | Inhale 2 puffs into | | 0 | 04/2 | | Activ | | (PROVENTIL | the lungs every 6 | | | 7/20 | | e | | HFA;VENTOLIN HFA) | (six) hours as | | | 19 | | | | 108 (90 Base) | needed. for wheezing | | | | | | | MCG/ACT inhaler | | | | | | | + + +--------+---------+------+------+-------+ Active Problems + + + | Problem | Noted Date | + + + | Medically noncompliant | 10/17/2018 | + + + | End stage renal disease (HCC) | 10/09/2018 | + + + | Non-cardiogenic pulmonary edema | 08/20/2018 | + + + | Pancytopenia (HCC) | 07/19/2018 | + + + | Other ascites | 07/19/2018 | + + + | Troponin I above reference range | 07/19/2018 | + + + | Acute hypoxemic respiratory failure (HCC) | 07/18/2018 | + + + | Sepsis (HCC) | 07/18/2018 | + + + | Pleural effusion | 07/18/2018 | + + + + + | Overview: Recurrent. | + + + + + | Chronic right-sided heart failure (HCC) | 07/18/2018 | + + + | Dilated cardiomyopathy (HCC) | 06/28/2018 | + + + | Transaminitis | 05/28/2018 | + + + | Hyperphosphatemia | 05/27/2018 | + + + | Hyperkalemia | 05/27/2018 | + + + | Moderate to severe pulmonary hypertension (HCC) | 05/27/2018 | + + + | Non-rheumatic tricuspid valve insufficiency | 05/27/2018 | + + + | Non-rheumatic mitral regurgitation | 05/27/2018 | + + + | Chronic 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) | 05/27/2018 | + + + | At high risk for electrolyte imbalance | 05/27/2018 | + + + | Dyspnea | 05/26/2018 | + + + | Pleural effusion on right | 05/26/2018 | + + + | Non-compliance | 05/26/2018 | + + + | HSP (Jada Schernestoleiksenia purpura) | 08/01/2014 | + + + | ESRD on hemodialysis (HCC) | 08/01/2014 | + + + | History of peritonitis | 07/29/2013 | + + + + + | Overview: Overview: Due to MSSA. Had tunneled infection as | | well. PD catheter removed in July 2013. On Keflex till 08/01/13. | |On Keflex till 08/01/13. | + + + +---+ | Anemia in ESRD (end-stage renal disease) (HCC) | | + +---+ | Hypervolemia | | + +---+ | Acidosis | | + +---+ Resolved Problems + + + + | Problem | Noted | Resolved | | | Date | Date | + + + + | Chest pain | 07/20/19 | | | | 19 | 9 | + + + + | Acute systolic CHF (congestive heart failure) (HCC) | 05/29/19 | | | | 19 | 9 | + + + + | Chronic systolic heart failure (HCC) | 05/28/19 | | | | 19 | 9 | + + + + Encounters +--------+ + + + + | Date | Type | Specialty | Care Team | Description | +--------+ + + + + | 10/17/ | Hospital | | Vivek Teran, | SOB (shortness of | | 2019 - | Encounter | | MD Shelton, | breath) (Primary | | | | | MD Naresh | Dx); Pleural | | 10/20/ | | | Gerber Pearson MD | effusion on right; | | 2018 | | | | ESRD needing | | | | | | dialysis (HCC); End | | | | | | stage renal disease | | | | | | (HCC) | +--------+ + + + + | 10/09/ | Documentati | | René Hinson MD | Other (September | on Only | | | 2018-[facility] Provider | | | | | | Dialysis Rounding | | | | | | Note) | +--------+ + + + + | 10/02/ | Office | | Denny Alexander | Pleural effusion | | 2018 | Visit | | Deny Briggs MD | (Primary Dx); SHADE | | | | | | (obstructive sleep | | | | | | apnea); Marijuana | | | | | | abuse | +--------+ + + + + | 10/02/ | Orders Only | | Halima Guzmán, | | 2018 | | | CELLOPHANE WRAPPING EXAMINER | | +--------+ + + + + | 09/13/ | Documentati | | René Hinson MD | Other (August | on Only | | | 2018-[facility] Provider | | | | | | Dialysis Rounding | | | | | | Note) | +--------+ + + + + from Last 3 Months Immunizations + + + + | Name | Dates Previously Given | Next Due | + + + + | DTaP | 10/08/2001, 07/22/1997, 1996, | | | | 1996 | | + + + + | IPV | 10/08/2001, 1996, 1996 | | + + + + | MMR | 10/08/2001, 07/22/1997 | | + + + + | Meningococcal | 12/17/2012 | | | Conjugate (MCV4P) | | | | Menactra | | | + + + + Family History + + +------+ + | Medical History | Relation | Name | Comments | + + +------+ + | Alcohol [...] HTN, alcoholic | + +------+--------+ + | Mother | | Alive | heart disease, epilepsy | + +------+--------+ + Social History + + + +--------+ [...] Description | +--------+---------+ + + + | 12/18/ | Office | | Denny Alexander | | | 2019 | Visit | | Deny Briggs MD [address] | | | | | [address] | | | | | | [place] [address] | | | | | | [phone] | | | | | | | [...] + + + | Vaccine: | | | | | Pneumococcal 19-64 | 5 | | | | Highest Risk (1 of 3 | | | | | - PCV13) | | | | + + + + + | Cervical Cancer | | | | | Screening (Pap) | 7 | | | + + + + + | Vaccine: Influenza | | | | | (#1) | 9 | | | + + [...] | Left: | SYNOVIS | | | [id number] | | 0.8x8cm - [id number]: | | Arm | | | | [...] | | | COVIDIEN | | | [id number] | | 23cmExplanted: Qty: 1 on | | | | | | [id number] / | | 04/08/2014 | | | | | | | | | | | | | | /[id number] | | | | | | | [...] | + +--------+ + + + | [facility] CARD PANEL W/O | STAT | 10/17/2018 [...] + + from Last 3 Months Results Basic metabolic panel (10/19/2018 6:20 AM) [...] 9.2 | 8.5 - 10.5 mg/dL | [facility] | | | | | LABORATORY | + + + + + | EGFR | 7 (L)Comment: GFR <60: | >60 mL/min/1.73m2 | [facility] | | | CHRONIC KIDNEY DISEASE, | [...] | | | | | performed at [facility], [address] | | | | [facility], | | | | | [place] [address] | | | + + + + + + + | Specimen | + + | Blood | + + + + + + + | Performing | Address | City/State/Zipcode | Phone Number | | Organization | | | | + + + + + | [facility] | [address] | [place] [address] | [phone] | | LABORATORY | [address] | | | + + + + + X-ray chest inspiration & expiration (10/18/2018 5:02 PM) + + + | Impressions | Performed At | + + + | 1. Interval decrease in volume of the large right pleural effusion | [facility] | | consistent with the history of [...] OR EXPIRATION ONLY CLINICAL INFORMATION: Post | [facility] | | thoracentesis. COMPARISON: US THORACENTESIS WITH IMAGING GUIDANCE | RADIOLOGY | | (10/18/2018); XR CHEST 1 VIEW (10/17/2018); CHEST TWO VIEWS 00472 | | | (10/17/2018); FINDINGS: Compared to [...] VIEW | | (10/17/2018); CHEST TWO VIEWS 70928 (10/17/2018); | | FINDINGS: | | Compared [...] | + + + + + | [facility] | [address] | [place] [address] | | + + + + + [...] pleural space is punctured with an 5 Indonesian Primavista | | | catheter. Fluid is aspirated without complication. The patient | | | tolerated the procedure well. No immediate complications. Estimated | | | Blood Loss: Minimal. | | + + + + + | Procedure Note | + + | Sonido Steele Results In - 10/18/2018 5:33 PM PDT [...] pleural space is punctured with an 5 Indonesian Yueh | | Swivlesis catheter. Fluid is aspirated without complication. The [...] [facility] | [address] | [place] [address] | | + + + + + [...] + + + + | Calculated P [place] | 46 | degrees | [facility] | + + + + + | Calculated R [place] | 127 | degrees | [facility] | + + + + + | Calculated T [place] | 94 | degrees | [facility] | + + + + + | Diagnosis | Normal sinus rhythmRight | | [facility] | | | axis | | [...] | | | | | leadsConfirmed by Hashim | | | | | Corinne ALMEIDA ([id number]) on | | | | | 10/18/2018 9:02:49 PM | | | + + + + + + + + + + | Performing | Address | City/State/Zipcode | Phone Number | | Organization | | | | + + + + + | [facility] | [address] | [place] [address] | | + + + + + [...] performed | | | | | at [facility], [address] | | | | | [facility], | | | | | [place] [address] | | | | |Testing performed at [facility], [address] [facility], [place] [address] | | | | | | | | + + + + + + + | Specimen | + + | Blood | + + + + + + + | Performing | Address | City/State/Zipcode | Phone Number | | Organization | | | | + + + + + | [facility] | [address] [place] [address] | [place] [address] | [phone] | | LABORATORY | [address]vd. | | | + + + + + Magnesium (10/18/2018 5:44 AM) + + + + + | Component | Value | Ref Range | Performed At | + + + + + | MAGNESIUM | 2.4Comment: Testing | 1.7 - 2.4 mg/dL | [facility] | | | performed at [facility], [facility] [address] | | LABORATORY | | | [facility], | | | | | [place] [address] | | | + + + + + + + | Specimen | + + | Blood | + + + + + + + | Performing | Address | City/State/Zipcode | Phone Number | | Organization | | | | + + + + + | [facility] | [address] | [place] [address] | [phone] | | LABORATORY | [address]vd[address] | | [...] 0.8 | 0.1 - 1.5 mg/dL | [facility] | | | | | LABORATORY | + + + + + | ALK PHOS | 89 | 35 - 115 U/L | [facility] | | | | | LABORATORY | + + + + + | AST | 28 | 10 - 45 U/L | [facility] | | | | | LABORATORY | + + + + + | ALT | 36 | 10 - 65 U/L | [facility] | | | | | LABORATORY | + + + + + | EGFR | 5 (L)Comment: GFR <60: | >60 mL/min/1.73m2 | [facility] | | | CHRONIC KIDNEY DISEASE, | [...] | | | | | performed at [facility], [address] | | | | | [address] [place], | | | | | [place] [address] | | | + + + + + + + | Specimen | + + | Blood | + + + + + + + | Performing | Address | City/State/Zipcode | Phone Number | | Organization | | | | + + + + + | [facility] | [address] | [place] [address] | [phone] | | LABORATORY | [address] | | | + + + + + Troponin I (10/17/2018 6:05 PM)Only the most recent of 3 results within the time period is included. + + + + + | Component | Value | Ref Range | Performed At | + + + + + | TROPONIN I | 0.175 (H)Comment: 0.04 | 0.00 - 0.04 ng/mL | [facility] | | | ng/mL or | [...] performed at | | | | | [facility];[address] [place] [address] | | | | | Blvd;[place] [address] | | | + + + + + + + | Specimen | + + | Blood | + + + + + + + | Performing | Address | City/State/Zipcode | Phone Number | | Organization | | | | + + + + + | [facility] | [address] | [place] [address] | | + + + + + ANYA (10/17/2018 6:05 PM)Only the most recent of 2 results within the time period is includ ed. + + + + + | Component | Value | Ref Range | Performed At | + + + + + | CPK | 443 (H)Comment: Testing | 30 - 240 U/L | [facility] | | | performed at [facility];[address] | | | [address];[place] | | | | | [address] | | | + + + + + + + | Specimen | + + | Blood | + + + + + + + | Performing | Address | City/State/Zipcode | Phone Number | | Organization | | | | + + + + + | [facility] | [address] | [place] [address] | | + + + + + Protime-INR (10/17/2018 8:10 AM) + + + + + | Component | Value | Ref Range | Performed At | + + + + + | INR | 1.2Comment: REFERENCE | | [facility] | | | RANGE:0.9 - | [...] | | | | | performed at [facility];[address] | | | | [address];[place], [place] | | | | | [address] | | | + + + + + + + | Specimen | + + | Blood | + + + + + + + | Performing | Address | City/State/Zipcode | Phone Number | | Organization | | | | + + + + + | [facility] | [address] | [place] [address] | | + + + + + [...] + | Cedric, Rad Results In - 10/17/2018 4:29 AM PDT CHEST ONE VIEW [...] | + + + + + | [facility] | [address] | [place] [address] | | + + + + + [...] + + + + | Calculated P [place] | 33 | degrees | [facility] | + + + + + | Calculated R [place] | -22 | degrees | [facility] | + + + + + | Calculated T [place] | 92 | degrees | [facility] | + + + + + | Diagnosis | Sinus | | [facility] | | | tachycardiaNonspecific T | [...] | | | | | ONLY, -COMPUTER ([id number]), | | | | | news assignment editor Daniela Esquivel | | | | | (18) on 10/17/2018 | | | | | 9:07:21 AM | | | + + + + + + + + + + | Performing | Address | City/State/Zipcode | Phone Number | | Organization | | | | + + + + + | [facility] | [address] | [place] [address] | | + + + + + Cardiac Panel (10/17/2018 3:49 AM) + + + + + | Component | Value | Ref Range | Performed At | + + + + + | WBC | 6.63 | 3.80 - 11.00 K/uL | [facility] | + + + + + | RBC | 3.07 (L) | 3.70 - 5.10 M/uL | [facility] | + + + + + | HGB | 10.9 (L) | 11.3 - 15.5 g/dL | [facility] | + + + + + [...] (H) | 37 - 53 fl | [facility] | + + + + + | PLT | 158 | 150 - 400 K/uL | [facility] | + + + + + | MPV | 10.2 | fl | [facility] | + + + + + | DIFF TYPE | AUTOMATED | | [facility] | + + + + + | NEUTROPHILS | 70.67 | % | [facility] | + + + + + | LYMPHOCYTES | 15.06 | % | [facility] | + + + + + | MONOCYTES | 3.99 | % | [facility] | + + + + + | EOSINOPHILS | 9.11 | % | [facility] | + + + + + | BASOPHILS | 1.17 | % | [facility] | + + + + + | NEUTROPHILS ABS | 4.68 | 1.90 - 7.40 K/uL | [facility] | + + + + + | LYMPHOCYTES ABS | 1.00 | 1.00 - 3.90 K/uL | [facility] | + + + + + | MONOCYTES ABS | 0.26 | 0.00 - 0.80 K/uL | [facility] | + + + + + | EOSINOPHILS ABS | 0.60 (H) | 0.00 - 0.50 K/uL | [facility] | + + + + + | BASOPHILS ABS | 0.08 | 0.00 - 0.10 K/uL | [facility] | + + + + + | MORPHOLOGY | 2+ | | [facility] | | | Comment: | | [...] 142 | 135 - 145 mmol/L | [facility] | + + + + + | POTASSIUM | 5.5 (H)Comment: SLT | 3.5 - 4.9 mmol/L | [facility] | | | HEMOLYSIS | | | + + + + + | CHLORIDE | 104 | 99 - 109 mmol/L | [facility] | + + + + + | CO2 | 17 (L) | 23 - 32 mmol/L | [facility] | + + + + + | ANION GAP AGAP | 27 (H) | 5 - 20 mmol/L | [facility] | + + [...] 8.9 | 8.5 - 10.5 mg/dL | [facility] | + + + + + | TOTAL PROTEIN | 6.5 | 6.3 - 8.2 g/dL | [facility] | + + + + + | Albumin | 4.0 | 3.6 - 5.0 g/dL | [facility] | + + + + + | GLOBULIN | 2.5 | 1.3 - 4.9 g/dL | [facility] | + + + + + | A/G | 1.6 | 1.0 - 2.4 | [facility] | + + + + + | TBIL | 0.6 | 0.1 - 1.5 mg/dL | [facility] | + + + + + | ALK PHOS | 85 | 35 - 115 U/L | [facility] | + + + + + | AST | 40 | 10 - 45 U/L | [facility] | + + + + + | ALT | 31 | 10 - 65 U/L | [facility] | + + + + + | EGFR | 3 (L)Comment: GFR <60: | >60 mL/min/1.73m2 | [facility] | | | CHRONIC KIDNEY DISEASE, [...] the | | | | | MDRD [facility] traceable | | | | | equation. | | | + + + + + | CPK | 690 (H)Comment: SLT | 30 - 240 U/L | [facility] | | | HEMOLYSIS | | | + + + + + | INR | 1.2Comment: REFERENCE | | [facility] | | | RANGE:0.9 - | [...] 23 | 23 - 32 seconds | [facility] | + + + + + | MMB | 17.8 (H) | 0.5 - 3.6 ng/mL | [facility] | + + + + + | CK-MB Index | UNABLE TO | | [facility] | | | CALCULATEComment: | | | | | Testing performed at | | | | | [facility];[address] [place] [address] | | | | | Blvd;[place] [address] | | | + + + + + + + + + + | Performing | Address | City/State/Zipcode | Phone Number | | Organization | | | | + + + + + | [facility] | [address] | [place] [address] | | + + + + + Brain natriuretic peptide (10/17/2018 3:49 AM) + + + + + | Component | Value | Ref Range | Performed At | + + + + + | BRAIN NATRIURETIC | 1,151.26 (H)Comment: | 0 - 100 pg/mL | [facility] | | PEPTIDE | Testing performed at | | | | | [facility];[address] | | | | [address];[place] [address] | | | + + + + + + + + + + | Performing | Address | City/State/Zipcode | Phone Number | | Organization | | | | + + + + + | [facility] | [address] | [place] [address] | | + + + + + ED INFORMATION EXCHANGE (10/17/2018 1:10 AM) + + + | Narrative | Performed At | + + + | [id number] [id number] Criteria Met Care | ED | | [...] | | | Medical/Surgical 05/28/18 12:00 AM [facility] | | | PATIENT HAS AN APT WITH PCP DR NICHOLSON ON 09/11/18. | | | PATIENT TARIFF SUPERVISOR- DR [phone] Patient is | | | currently established with [facility]. If patient is seen in | | | the ED during business hours. Please contact [facility] at [facility] | | | Clinic. Care Recommendation: This patient has had 5 [...] | | mo.) Facility Visits [facility] 4 0 | | | [facility] 12 0 Total 16 0 Note: [...] | or Chief Complaint Oct 17, 2018 [facility] [place]. [place] | | | Emergency [facility], [facility] [place] | | | Emergency Chief Complaint: EXCESS FLUID Aug 20, 2018 [facility]. | | | [place]. [place] Emergency Dependence on renal dialysis | | | Chronic kidney disease, unspecified Allergy status to | | | other drugs, medicaments and biological substances status | | | Chronic pulmonary edema Other long term care pharmacist (current) drug therapy | | | Allergy status to narcotic agent status Dyspnea, | | | unspecified Radiographic dye allergy status Aug 13, 2018 | | | [facility] [place] Emergency Allergy status to | | | other drugs, medicaments and biological substances status | | | Pleural effusion, not elsewhere classified End stage renal | | | disease Allergy status to narcotic agent status | | | Hyperkalemia Other specified abnormalities of plasma proteins | | | Other fpc (current) drug therapy Radiographic dye | | | allergy status Dependence on renal dialysis Chest pain, | | | unspecified Aug 13, 2018 [facility] | | | Emergency July 18, 2018 [facility] | | | Emergency Cough Pneumonia Hypoxemia | | | Pleural effusion, not elsewhere classified Fever, unspecified | | | Personal history of other diseases of urinary system May | | | 2018 [facility] [place] [place] Emergency Personal | | | history of nicotine dependence Other specified respiratory | | | disorders Cough Radiographic dye allergy status | | | Allergy status to narcotic agent status Chronic kidney disease, | | | unspecified Allergy status to other drugs, medicaments and | | | biological substances status Jun 19, 2018 [facility] | | | 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 Emergency Shortness of breath | | | Fluid overload, unspecified Hyperkalemia Radiographic | | | dye allergy status Allergy status to narcotic agent status | | | Other long term care pharmacist (current) drug therapy Allergy status to | | | other drugs, medicaments and biological substances status | | | Unspecified asthma, uncomplicated Dependence on renal dialysis | | | Chronic kidney disease, unspecified Jun 11, 2018 [facility] | | | 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 | | | analgesic Recent Inpatient Visit Summary Date Facility | | | [facility] Type Diagnoses or Chief Complaint Aug 20, 2018 [facility] | | | [facility] General Medicine Pleural Effusion | | | Chronic pulmonary edema July 18, 2018 [facility] | | | [facility] General Medicine Hypoxemia Personal history | | | of other diseases of urinary system Fever, unspecified | | | Pleural effusion, not elsewhere classified End stage renal | | | disease Dependence on renal dialysis Anemia in chronic | | | kidney disease Pulmonary hypertension, unspecified | | | Chronic right heart failure May 26, 2018 [facility] | | | [facility] General Medicine Acute respiratory distress | | [...] Internal Medicine May 28, | | | 2018 - Current Primitive Makeup Portal This patient has registered | | | at the [facility] Emergency Department For more | | | information visit: | | | [email or web address] | | | [email or web address] PLEASE NOTE: 1. [...] | | | completeness of information provided. 2018 [employer] | | | [employer]. - [email or web address] | | + + + + + | Procedure Note | + + | Interface, Lab - 10/17/2018 1:12 AM PDT Formatting of this note may be different | | from the original.[id number] [id number] Met Care Guidelines 10 in | | 12 2 in 2Security and SafetyNo recent Security Events currently on fileED Care | | GuidelinesThere are currently no ED Care Guidelines for this patient. Please check your | | facility's medical records system.Care HistoryMedical/Surgical05/28/18 12:00 AM [facility]. | | [facility] PATIENT HAS AN APT WITH PCP DR NICHOLSON ON 09/11/18. PATIENT | | TARIFF SUPERVISOR- DR [phone] Patient is currently established with | [facility]. If patient is seen in the ED during business hours. Please contact CHWs | | at [facility].Care Recommendation:This patient has had 5 or [...] Visit Count (12 mo.)Facility Visits [facility] | | Center 4 0 [facility] 12 0 Total 16 0 Note: [...] Chief | | Complaint Oct 17, 2018 [facility] [place]. [place] Emergency Oct 16, 2018 [facility]. | | [place]. [place] Emergency Chief Complaint: EXCESS FLUID Aug 20, 2018 [facility]. | | [place] Emergency Dependence on renal dialysis Chronic kidney | | disease, unspecified Allergy status to other drugs, medicaments and biological | | substances status Chronic pulmonary edema Other long term care pharmacist (current) drug therapy | | Allergy status to narcotic agent status Dyspnea, unspecified Radiographic dye | | allergy status Aug 13, 2018 [facility] [place] [facility] Allergy status to [...] dialysis Chest pain, unspecified Aug 13, [facility] | | Emergency July 18, 2018 [facility] Emergency Cough Pneumonia | | Hypoxemia Pleural effusion, not elsewhere classified Fever, unspecified | | Personal history of other diseases of urinary system July 18, 2018 [facility] | | [place] Emergency Personal history [...] overload, unspecified | | Heart failure, unspecified assisted (current) use of opiate analgesic Allergy | | status to other drugs, medicaments and biological substances status Radiographic dye | | allergy status Other fpc (current) drug therapy Jun 12, 2018 [facility] | | [place] Emergency Shortness of breath Fluid overload, unspecified | | Hyperkalemia Radiographic dye allergy status Allergy status to narcotic agent | | status Other long term care pharmacist (current) drug therapy Allergy status to other drugs, | | medicaments and biological substances status Unspecified asthma, uncomplicated | | Dependence on renal dialysis Chronic kidney disease, unspecified Jun 11, 2018 [facility] | | 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 analgesic Recent | | Inpatient Visit SummaryDate Facility City State Type Diagnoses or Chief Complaint Aug | | 2018 [facility] [place] [facility] Pleural Effusion Chronic | | pulmonary edema July 18, 2018 [facility] General Medicine | | Hypoxemia Personal history of other diseases of urinary system Fever, unspecified | | Pleural effusion, not elsewhere classified End stage renal disease Dependence | | on renal dialysis Anemia in chronic kidney disease Pulmonary hypertension, | | unspecified Chronic right heart failure May 26, 2018 [facility] | | General Medicine Acute respiratory distress Chest pain, unspecified Pleural | | effusion, not elsewhere classified Other ascites Dependence on renal dialysis | | Hyperkalemia Other disorders of phosphorus metabolism End stage renal disease | | Other specified personal risk factors, not elsewhere classified Acute systolic | | (congestive) heart failure Care TeamProvider PRC Type Phone Fax Service Dates BHARAT, | | TIEN Gallagher MD Internal Medicine May 28, 2018 - Current [employer] patient | | has registered at the [facility] Emergency Department For more | | information visit: | | [email or web address] PLEASE | | NOTE: 1. Any care [...] or completeness of information | | provided.2019 [employer]. - www.[employer] | | Personal history of other diseases of urinary system | | | |July 18, 2018 [facility] | | Personal history of nicotine dependence | | Other specified respiratory disorders | | Cough | | Radiographic dye allergy status | | Allergy status to narcotic agent status | | Chronic kidney disease, unspecified | | Allergy status to other drugs, medicaments and biological substances status | | | |Jun 19, 2018 [facility] [place] 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 [place] [facility] | | Shortness of breath | | Fluid overload, unspecified | | Hyperkalemia | | Radiographic dye allergy status | | Allergy status to narcotic agent status | | Other long term care pharmacist (current) drug therapy | | Allergy status to other drugs, medicaments and biological substances status | | Unspecified asthma, uncomplicated | | Dependence on renal dialysis | | Chronic kidney disease, unspecified | | | |Jun 11, 2018 [facility] [place] 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 | | | | | | | |Recent Inpatient Visit Summary | |Date Facility City State Type Diagnoses or Chief Complaint | |Aug 20, 2018 [facility] General Medicine | | Pleural Effusion | | Chronic pulmonary edema | | | |July 18, 2018 [facility] General Medicine | | Hypoxemia | | Personal history of other diseases of urinary system | | Fever, unspecified | | Pleural effusion, not elsewhere classified | | End stage renal disease | | Dependence on renal dialysis | | Anemia in chronic kidney disease | | Pulmonary hypertension, unspecified | | Chronic right heart failure | | | |May 26, 2018 [facility] General Medicine | | Acute respiratory distress [...] 28, 2018 - Current | | | |Collective Portal | |This patient has registered at the [facility] Emergency Department | |For more information visit: [email or web address] | |PLEASE NOTE: | | 1. Any [...] of information provided. | | | |2019 [employer]. - www.[employer] | + + + +---------+ + + [...] +------+-------+ + | MEDICARE | MEDICA | [id number] | | | [address] | | | RE | | | | [place] [address] | | | IP-OP | | | | | + +--------+ +------+-------+ + | MEDICAID | EASTER | [id number] | | | [address] | | | N | | | | [place] | | | [place] | | | | [address] | | | INSTRUMENT ENGINEER | | | | | + +--------+ +------+-------+ + + +--------+ +--------+ + + | Guarantor Name | Accoun | Relation to | Date | Phone | Billing Address | | | t Type | Patient | of | | | | | | | | | | + +--------+ +--------+ + + | DARA LOUISE | Person | Self [birth year] Home: | [address] [place] | | | al/Fam | | 1994 | [phone] [address] [place] | | | [place] | | | [phone] | [phone] | + +--------+ +--------+ + +
--- OUTSIDE RECORDS SUMMARY | ~2018-12-09 | XMS | Encounter Summary ---
Demographics + + + | Address | [address] | | | [place] [address] | + + + | Home Phone [...] | | | | | [place] [address] | | + + + + + | Thania Mallory | ECON | [address] | | | | | [place] [address] | | + + + + + | Deidra Weldon | ECON | [address] | | | | | [place] | | | | | [address] | | + + + + + Care Team Providers + +------+ + | Care Lamp Shade Assembler Name | Role | Phone | [...] + + | 10/25/ | Documentati | Transplant | Kelsi Martinez, | Transplant Form | | 2012 | on | Coordinators [address] | RN [address] | Update | | | | [facility] | [facility] | | | | | Rd [place], [place] | [place], [place] | | | | | [address] | [address] | | | | | [phone] | | | +--------+ + + + [...] Denise | | | | | | [place], [place] | | | | | | [address] | | | | | | [phone] | | | | | | | | +--------+ + + + + documented as of this encounter Visit Diagnoses + + | Diagnosis | + + | 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
--- OUTSIDE RECORDS SUMMARY | ~2018-12-09 | XMS | Encounter Summary ---
Demographics + + + | Address | [address] | | | [place] [address] | + + + | Home Phone [...] + + + | Author | [facility] | + + + | Organization | [facility] | + + + | Address | Unknown | + + + | Phone | Unavailable | + + + Support + + + + + | Name | Relationship | Address | Phone | + + + + + | Cory Weldon | ECON | [address] | | | | | [place] [address] | | + + + + + | Thania Mallory | ECON | [address] | | | | | [place] [address] | | + + + + + | Deidra Weldon | ECON | [address] | | | | | [place] | | | | | [address] | | + + + + + Care Team Providers + +------+ + | Care Teletypewriter Operator Name | Role | Phone | + +------+ + | Jonathan Alonso MD | PCP | | + +------+ + Reason for Visit +--------+ + | Reason | Comments | +--------+ + | Other | | +--------+ + Encounter Details +--------+ + + + + | Date | Type | Department | Care Team | Description | +--------+ + + + + | 05/25/ | Telephone | Pediatric | Sudhakar Joy | Other | | 2016 | | Nephrology at | MD Emanuel [address] | | | | | [place] | [address] | | | | | [facility] | [place], [place] | | | | | [address] | [address] | | | | | Caro Chan Mailcode: | [phone] | | | | | [address] | | | | | | [place], [place] | | | | | | [address] | | | | | | [phone] | | | +--------+ + + + [...] Denise | | | | | | [place], [place] | | | | | | [address] | | | | | | [phone] | | | | | | | | +--------+ + + + + documented as of this encounter Visit Diagnoses Not on filedocumented in this encounter"
--- OUTSIDE RECORDS SUMMARY | ~2018-12-09 | XMS | Encounter Summary ---
Demographics + + + | Address | [address] | | | [place] [address] | + + + | Home Phone [...] Author + + + | Author | [facility] | + + + | Organization | [facility] | + + + | Address | Unknown | + + + | Phone | Unavailable | + + + Support + + + + + | Name | Relationship | Address | Phone | + + + + + | Cory Weldon | ECON | [address] | | | | | [place] [address] | | + + + + + | Thania Mallory | ECON | [address] | | | | | [place] [address] | | + + + + + | Deidra Weldon | ECON | [address] | | | | | [place] | | | | | [address] | | + + + + + Care Team Providers + +------+ + | Care Highway Maintenance Worker Name | Role | Phone | + +------+ + | No Pcp Per Patient | PCP | Unavailable | + +------+ + Reason for Visit +--------+ + | Reason | Comments | +--------+ + | Other | Pt has moved | +--------+ + Encounter Details +--------+ + + + + | Date | Type | Department | Care Team | Description | +--------+ + + + + | 03/31/ | Telephone | Transplant | Kelsi Martinez, | Other (Pt has moved) | | 2014 | | Coordinators [address] | RN [address] | | | | | [address] [facility] | [facility] | | | | | Rd [place], [place] | [place], [place] | | | | | [address] | [address] | | | | | [phone] | | | +--------+ + + + [...] Denise | | | | | | [place] | | | | | | [address] | | | | | | [phone] | | | | | | | | +--------+ + + + + documented as of this encounter Visit Diagnoses Not on filedocumented in this encounter"
--- OUTSIDE RECORDS SUMMARY | ~2018-12-09 | XMS | Encounter Summary ---
Demographics + + + | Address | [address] | | | [place] [address] | + + + | Home Phone [...] | | | | | [place] [address] | | + + + + + | Thania Mallory | ECON | [address] | | | | | [place] [address] | | + + + + + | Deidra Weldon | ECON | [address] | | | | | [place] | | | | | [address] | | + + + + + Care Team Providers + +------+ + | Care Optician Manager Name | Role | Phone | [...] Rd | | | | | [facility] | [place], [place] | | | | | [address] | [address] | | | | | Caro Chan Mailcode: | [phone] | | | | | [address] | | | | | | [place], [place] | | | | | | [address] | | | | | | [phone] | | | +--------+ + + + [...] Denise | | | | | | [place], [place] | | | | | | [address] | | | | | | [phone] | | | | | | | | +--------+ + + + + documented as of this encounter Visit Diagnoses Not on filedocumented in this encounter"
--- OUTSIDE RECORDS SUMMARY | ~2018-12-09 | XMS | Encounter Summary ---
Demographics + + + | Address | [address] | | | [place] [address] | + + + | Home Phone [...] | | | | | [place] [address] | | + + + + + | Thania Mallory | ECON | [address] | | | | | [place] [address] | | + + + + + | Deidra Weldon | ECON | [address] | | | | | [place] | | | | | [address] | | + + + + + Care Team Providers + +------+ + | Care Clinical Technologist Name | Role | Phone | + [...] | recommendations) | | | | [address] [facility] | [facility] | | | | | Rd [place], [place] | [place], [place] | | | | | [address] | [address] | | | | | [phone] | | | +--------+ + + + [...] Denise | | | | | | [place] | | | | | | [address] | | | | | | [phone] | | | | | | | | +--------+ + + + + documented as of this encounter Visit Diagnoses Not on filedocumented in this encounter"
--- OUTSIDE RECORDS SUMMARY | ~2018-12-09 | XMS | Encounter Summary ---
Demographics + + + | Address | [address] | | | [place] [address] | + + + | Home Phone [...] | | | | | [place] [address] | | + + + + + | Thania Mallory | ECON | [address] | | | | | [place] [address] | | + + + + + | Deidra Weldon | ECON | [address] | | | | | [place] | | | | | [address] | | + + + + + Care Team Providers + +------+ + | Care Biology Research Assistant Name | Role | Phone | [...] | | Jonathan Gallagher, | [address] | | | | | | [address] | [address] | | | | | | [place]even | [address] | | | | | | [facility] | Rd Mailcode: | | | | | | [address] | [address] | | | | | | [address] | [place] | | | | | | [place], | [place], [place] | | | | | | [place] | [address] | | | | | | [address] | Phone: | | | | | | Phone: | [phone] | | | | | | [phone] | | | | | | | Fax: | | | | | | | [phone] | | +--------+--------+ + + + + Encounter Details +--------+---------+ + + + | Date | Type | Department | Care Team | Description | +--------+---------+ + + + | 01/20/ | Office | Specialty Clinics | Sudhakar Joy | HSP | | 2014 | Visit | at [facility] [address] MD [address] | ([place] | | | | [address] | [facility] [address] | purpura) nephritis | | | | Mailcode: DC7 | [place], [place] | (Primary Dx); | | | | [place] | [address] | Allergic purpura- | | | | [place], [place] | [phone] | MEDICARE 2728; | | | | [address] | | Anemia of chronic | | | | [phone] | | kidney failure, | | | [...] to get back on the list. Mariza Smithings is me eting with family to establish a plan financially for transplant. I spent 34 minutes with this patient including > 50% spent in counseling and coordination o f care. The next appointment is in four months. Sudhakar Joy MD [facility] [address] Mail code [facility] [place], [place] [id number] documented in this encounter Plan of Treatment +--------+ + + + + | Date | Type | Specialty | Care Team | Description | +--------+ + + + + | 05/04/ | Hospital | Adult Acute Care | El Starr MD | | | 2022 | Encounter | | [address] | | | | | | [place], [place] | | | | | | [address] | | | | | | [phone] | | | | | | | [...]
--- OUTSIDE RECORDS SUMMARY | ~2018-12-09 | XMS | Encounter Summary ---
Demographics + + + | Address | [address] | | | [place] [address] | + + + | Home Phone [...] + + + | Author | [facility] | + + + | Organization | [facility] | + + + | Address | Unknown | + + + | Phone | Unavailable | + + + Support + + + + + | Name | Relationship | Address | Phone | + + + + + | Cory Weldon | ECON | [address] | | | | | [place] [address] | | + + + + + | Thania Mallory | ECON | [address] | | | | | [place] [address] | | + + + + + | Deidra Weldon | ECON | [address] | | | | | [place] | | | | | [address] | | + + + + + Care Team Providers + +------+ + | Care Range Scientist Name | Role | Phone | [...] + + | 08/13/ | Documentati | Transplant | Kelsi Martinez, | Transplant Form | | 2013 | on | Coordinators [address] | RN [address] | Update | | | | [facility] | [facility] | | | | | Rd [place], [place] | [place], [place] | | | | | [address] | [address] | | | | | [phone] | | | +--------+ + + + [...] [facility] | | | | | | [address] | | | | | | [phone] | | | | | | | | +--------+ + + + + documented as of this encounter Visit Diagnoses Not on filedocumented in this encounter"
--- OUTSIDE RECORDS SUMMARY | ~2018-12-09 | XMS | Encounter Summary ---
Demographics + + + | Address | [address] | | | [place] [address] | + + + | Home Phone [...] | | | | | [place] [address] | | + + + + + | Thania Mallory | ECON | [address] | | | | | [place] [address] | | + + + + + | Deidra Weldon | ECON | [address] | | | | | [place] | | | | | [address] | | + + + + + Care Team Providers + +------+ + | Care Color Artist Name | Role | Phone | + [...] | | 2015 | | Coordinators [address] | RN [address] | | | | | [address] [facility] | [facility] | | | | | Rd [place], [place] | [place], [place] | | | | | [address] | [address] | | | | | [phone] | | | +--------+ + + + [...] Denise | | | | | | [place] | | | | | | [address] | | | | | | [phone] | | | | | | | | +--------+ + + + + documented as of this encounter Visit Diagnoses Not on filedocumented in this encounter"
--- OUTSIDE RECORDS SUMMARY | ~2018-12-09 | XMS | Encounter Summary ---
Demographics + + + | Address | [address] | | | [place] [address] | + + + | Home Phone | | + + + | Preferred Language | Unknown | + + + | Marital Status | Single | + + + | Samaritan Affiliation | Unknown | + + + | Race | Unknown | + + + | Ethnic Group | Unknown | + + + Author + + + | Author | [facility] (Historical as of | | | 10-20-18) | + + + | Organization | [facility] (Historical as of | | | 10-20-18) [...] Team Providers + +------+ + | Care Molded Goods Operator Name | Role | Phone | + +------+ + | Jonathan Alonso MD | PCP | | + +------+ + Encounter Details +--------+ + + + + | Date | Type | Department | Care Team | Description | +--------+ + + + + | 10/02/ | Orders Only | [facility] | Halima Guzmán, | | | 2019 | | Pulmonology [address] | MACHINE BINDING FOLDER | | | | | [address] | | | | | | [place] | | | | | | [address] | | | | | | [phone] | | | +--------+ + + + [...] + + | 12/18/ | Office | Pulmonology | Denny [place] | | | 2019 | Visit | | Deny Briggs MD [address] | | | | | | [address] | | | | | | [place] [address] | | | | | | [phone] | | | | | | | | +--------+---------+ + + + as of this encounter Visit Diagnoses Not on filein this encounter"
--- OUTSIDE RECORDS SUMMARY | ~2018-12-09 | XMS | Encounter Summary ---
Demographics + + + | Address | [address] | | | [place] [address] | + + + | Home Phone [...] | | | | | [place] [address] | | + + + + + | Thania Mallory | ECON | [address] | | | | | [place] [address] | | + + + + + | Deidra Weldon | ECON | [address] | | | | | [place] | | | | | [address] | | + + + + + Care Team Providers + +------+ + | Care Facility Designer Name | Role | Phone | [...] | 03/05/ | Documentati | Transplant | Kelis Martinez, | Unos Listing (ABO | | 2013 | on | Coordinators [address] | RN [address] | VERIFICATION) | | | | [facility] | [facility] | | | | | Rd [place], [place] | [place], [place] | | | | | [address] | [address] | | | | | [phone] | | | +--------+ + + + [...] Denise | | | | | | [place] | | | | | | [address] | | | | | | [phone] | | | | | | | | +--------+ + + + + documented as of this encounter Visit Diagnoses Not on filedocumented in this encounter"
--- OUTSIDE RECORDS SUMMARY | ~2018-12-09 | XMS | Encounter Summary ---
Demographics + + + | Address | [address] | | | [place] [address] | + + + | Home Phone [...] | | | | | [place] [address] | | + + + + + | Thania Mallory | ECON | [address] | | | | | [place] [address] | | + + + + + | Deidra Weldon | ECON | [address] | | | | | [place] | | | | | [address] | | + + + + + Care Team Providers + +------+ + | Care Membership Sales Advisor Name | Role | Phone | + [...] + + | 11/22/ | Telephone | Transplant | Kelsi Martinez, | Candidate donor | | 2012 | | Coordinators [address] | RN [address] | | | | | [address] [facility] | [facility] | | | | | Rd [place], [place] | [place], [place] | | | | | [address] | [address] | | | | | [phone] | | | +--------+ + + + [...] Denise | | | | | | [place] | | | | | | [address] | | | | | | [phone] | | | | | | | | +--------+ + + + + documented as of this encounter Visit Diagnoses Not on filedocumented in this encounter"
--- OUTSIDE RECORDS SUMMARY | ~2018-12-09 | XMS | Encounter Summary ---
Demographics + + + | Address | [address] | | | [place] [address] | + + + | Home Phone [...] | | | | | [place] [address] | | + + + + + | Thania Mallory | ECON | [address] | | | | | [place] [address] | | + + + + + | Deidra Weldon | ECON | [address] | | | | | [place] | | | | | [address] | | + + + + + Care Team Providers + +------+ + | Care Machine Ii Engraver Name | Role | Phone | + +------+ + | No Pcp Per Patient | PCP | Unavailable | + +------+ + Reason for Visit + + + | Reason | Comments | + + + | KP WL Status | | + + + Encounter Details +--------+ + + + + | Date | Type | Department | Care Team | Description | +--------+ + + + + | 06/04/ | Telephone | Transplant | Kelsi Martinez | SHERIDAN WL Status | | 2014 | | Coordinators [address] | RN [address] [facility] | | | | | [address] [facility] | [facility] | | | | | Rd [place], [place] | [place], [place] | | | | | [address] | [address] | | | | | [phone] | | | +--------+ + + + [...] Denise | | | | | | [place], [place] | | | | | | [address] | | | | | | [phone] | | | | | | | | +--------+ + + + + documented as of this encounter Visit Diagnoses Not on filedocumented in this encounter"
--- OUTSIDE RECORDS SUMMARY | ~2018-12-09 | XMS | Encounter Summary ---
Demographics + + + | Address | [address] | | | [place] [address] | + + + | Home Phone [...] | | | | | [place] [address] | | + + + + + | Thania Mallory | ECON | [address] | | | | | [place] [address] | | + + + + + | Deidra Weldon | ECON | [address] | | | | | [place] | | | | | [address] | | + + + + + Care Team Providers + +------+ + | Care Forestry Pilot Name | Role | Phone | + [...] + + | 06/02/ | Documentati | Transplant | Kelsi Martinez, | Follow-up Plan | | 2017 | on | Coordinators [address] | RN [address] | | | | | [address] [facility] | [facility] | | | | | Rd [place], [place] | [place], [place] | | | | | [address] | [address] | | | | | [phone] | | | +--------+ + + + [...] Denise | | | | | | [place] | | | | | | [address] | | | | | | [phone] | | | | | | | | +--------+ + + + + documented as of this encounter Visit Diagnoses Not on filedocumented in this encounter"
--- OUTSIDE RECORDS SUMMARY | ~2018-12-09 | XMS | Encounter Summary ---
Demographics + + + | Address | [address] | | | [place] [address] | + + + | Home Phone [...] | | | | | [place] [address] | | + + + + + | Thania Mallory | ECON | [address] | | | | | [place] [address] | | + + + + + | Deidra Weldon | ECON | [address] | | | | | [place] | | | | | [address] | | + + + + + Care Team Providers + +------+ + | Care Talent Solutions Manager Name | Role | Phone | [...] + + | 02/18/ | Abstract | Transplant | Elina Ace, | Transplant Form | | 2013 | | Coordinators [address] | [place], [place] | Update | | | | [address] [facility] | [address] | | | | | Rd [place], [place] | | | | | | [address] | | | | | | [phone] | | | +--------+ + + + [...] Denise | | | | | | [place], [place] | | | | | | [address] | | | | | | [phone] | | | | | | | | +--------+ + + + + documented as of this encounter Visit Diagnoses Not on filedocumented in this encounter"
--- OUTSIDE RECORDS SUMMARY | ~2018-12-09 | XMS | Encounter Summary ---
Demographics + + + | Address | [address] | | | [place] [address] | + + + | Home Phone [...] | | | | | [place] [address] | | + + + + + | Thania Mallory | ECON | [address] | | | | | [place] [address] | | + + + + + | Deidra Weldon | ECON | [address] | | | | | [place] | | | | | [address] | | + + + + + Care Team Providers + +------+ + | Care Piano Professor Name | Role | Phone | [...] Everywher | | | | ANNALISA Hoffmann [facility] | [address] | Query) | | | | Rd [place], [place] | [place], [place] | | | | | [address] | [address] | | | | | [phone] | [phone] | | | | | | | [...] [place] | | | | | | [address] | | | | | | [phone] | | | | | | | | +--------+ + + + + documented as of this encounter Visit Diagnoses Not on filedocumented in this encounter"
--- OUTSIDE RECORDS SUMMARY | ~2018-12-09 | XMS | Encounter Summary ---
Demographics + + + | Address | [address] | | | [place] [address] | + + + | Home Phone [...] | | | | | [place] [address] | | + + + + + | Thania Mallory | ECON | [address] | | | | | [place] [address] | | + + + + + | Deidra Weldon | ECON | [address] | | | | | [place] | | | | | [address] | | + + + + + Care Team Providers + +------+ + | Care It Project Coordinator Name | Role | Phone | [...] Rd | | | | | [facility] | [place], [place] | | | | | [address] | [address] | | | | | Caro Chan Mailcode: | [phone] | | | | | [address] | | | | | | [place], [place] | | | | | | [address] | | | | | | [phone] | | | +--------+ + + + [...] [place] | | | | | | [address] | | | | | | [phone] | | | | | | | | +--------+ + + + + documented as of this encounter Visit Diagnoses Not on filedocumented in this encounter"
--- OUTSIDE RECORDS SUMMARY | ~2018-12-09 | XMS | Encounter Summary ---
Demographics + + + | Address | [address] | | | [place] [address] | + + + | Home Phone [...] | | | | | [place] [address] | | + + + + + | Thania Mallory | ECON | [address] | | | | | [place] [address] | | + + + + + | Deidra Weldon | ECON | [address] | | | | | [place] | | | | | [address] | | + + + + + Care Team Providers + +------+ + | Care Nurse Transitional Name | Role | Phone | + [...] Family sheet & | | | | [address] | [address] | crossmatch report) | | | | Caro Chan Mailcode: | [place], [place] | | | | | [address] | [address] | | | | | [address] | [phone] | | | | | [place], [place] | | | | | | [address] | | | | | | [phone] | | | +--------+ + + + [...] Denise | | | | | | [place], [place] | | | | | | [address] | | | | | | [phone] | | | | | | | | +--------+ + + + + documented as of this encounter Visit Diagnoses Not on filedocumented in this encounter"
--- OUTSIDE RECORDS SUMMARY | ~2018-12-09 | XMS | Encounter Summary ---
Demographics + + + | Address | [address] | | | [place] [address] | + + + | Home Phone [...] | | | | | [place] [address] | | + + + + + | Thania Mallory | ECON | [address] | | | | | [place] [address] | | + + + + + | Deidra Weldon | ECON | [address] | | | | | [place] | | | | | [address] | | + + + + + Care Team Providers + +------+ + | Care Open Hearth Laborer Name | Role | Phone | [...] | Committee | | | | ANNALISA [facility] | [facility] | recommendations) | | | | Rd [place], [place] | [place], [place] | | | | | [address] | [address] | | | | | [phone] | | | +--------+ + + + [...] Denise | | | | | | [place] | | | | | | [address] | | | | | | [phone] | | | | | | | | +--------+ + + + + documented as of this encounter Visit Diagnoses Not on filedocumented in this encounter"
--- OUTSIDE RECORDS SUMMARY | ~2018-12-09 | XMS | Encounter Summary ---
Demographics + + + | Address | [address] | | | [place] [address] | + + + | Home Phone [...] | | | | | [place] [address] | | + + + + + | Thania Mallory | ECON | [address] | | | | | [place] [address] | | + + + + + | Deidra Weldon | ECON | [address] | | | | | [place] | | | | | [address] | | + + + + + Care Team Providers + +------+ + | Care Appliance Repairer Name | Role | Phone | [...] | purpura | [address] | | | | | (HCC) | [address] | [address] | | | | | Procedures | Caro Chan | Dustin Mailcode: | | | | | TRANSTHORACI | [place], [place] | [facility] | | | | | C | [address] | Dobradechramonita | | | | | ECHOCARDIOGR | Phone: | [place], [place] | | | | | AM, PEDS | [phone] | [address] | | | | | | Fax: | Phone: | | | | | | [phone] | [phone] | | | | | | | Fax: | | | | | | | [phone] | +--------+--------+ + + + + Diagnostic Testing (Routine) +--------+--------+ + + [...] ANNALISA Hoffmann | | | | | ([facility]) | [address] | [facility] | | | | | Procedures | [address] | Rd Mailcode: | | | | | TRANSTHORACI | [facility] [place] | [facility] | | | | | C | [address] | Doernbecher | | | | | ECHOCARDIOGR | Phone: | [place], [place] | | | | | AM, PEDS | [phone] | [address] | | | | | | Fax: | Phone: | | | | | | [phone] | [phone] | | | | | | | Fax: | | | | | | | [phone] | +--------+--------+ + + + + Reason [...] | | Cardiology | Allergic | Sudhakar D, | Lab [address] | | | | | purpura | [address] | ANNALISA Hoffmann | | | | | ([facility]) | [address] | [address] | | | | | Procedures | Caro [address] | Dustin Mailcode: | | | | | TRANSTHORACI | [place], [place] | [facility] | | | | | C | [address] | Doerarielaecher | | | | | ECHOCARDIOGR | Phone: | [place], [place] | | | | | AM, PEDS | [phone] | [address] | | | | | | Fax: | Phone: | | | | | | [phone] | [phone] | | | | | | | Fax: | | | | | | | [phone] | +--------+--------+ + + + + Encounter Details +--------+ + + + + | Date | Type | Department | Care Team | Description | +--------+ + + + + | 12/20/ | Hospital | Pediatric Echo Lab | | | | 2013 | Encounter | at [facility] [address] | | | | | | [address] | | | | | | Mailcode: [facility] | | | | | | [address] | | | | | | [place], [place] | | | | | | [address] | | | | | | [phone] | | | +--------+ + + + [...] Denise | | | | | | [place], [place] | | | | | | [address] | | | | | | [phone] | | | | | | | [...]
--- OUTSIDE RECORDS SUMMARY | ~2018-12-09 | XMS | Encounter Summary ---
Demographics + + + | Address | [address] | | | [place] [address] | + + + | Home Phone [...] | | | | | [place] [address] | | + + + + + | Thania Mallory | ECON | [address] | | | | | [place] [address] | | + + + + + | Deidra Weldon | ECON | [address] | | | | | [place] | | | | | [address] | | + + + + + Care Team Providers + +------+ + | Care Associate Director Of Nursing Name | Role | Phone | + [...] | 2015 | | Coordinators [address] | [address] | consultation ( | | | | ANNALISA [address] | [address] | assistance with SSA) | | | | Rd [place], [place] | [place], [place] | | | | | [address] | [address] | | | | | [phone] | | | +--------+ + + + [...] Denise | | | | | | [place] | | | | | | [address] | | | | | | [phone] | | | | | | | | +--------+ + + + + documented as of this encounter Visit Diagnoses Not on filedocumented in this encounter"
--- OUTSIDE RECORDS SUMMARY | ~2018-12-09 | XMS | Encounter Summary ---
Demographics + + + | Address | [address] | | | [place] [address] | + + + | Home Phone [...] | | | | | [place] [address] | | + + + + + | Thania Mallory | ECON | [address] | | | | | [place] [address] | | + + + + + | Deidra Weldon | ECON | [address] | | | | | [place] | | | | | [address] | | + + + + + Care Team Providers + +------+ + | Care Twister Frame Tender Name | Role | Phone | + +------+ + | No Pcp Per Patient | PCP | Unavailable | + +------+ + Reason for Visit +--------+ + | Reason | Comments | +--------+ + | Other | PRA? | +--------+ + Encounter Details +--------+ + + + + | Date | Type | Department | Care Team | Description | +--------+ + + + + | 08/06/ | Telephone | Transplant | Kelsi Martinez, | Other (PRA?) | | 2015 | | Coordinators [address] | RN [address] | | | | | [facility] | [facility] | | | | | Rd [place], [place] | [place], [place] | | | | | [address] | [address] | | | | | [phone] | | | +--------+ + + + [...] Denise | | | | | | [place] | | | | | | [address] | | | | | | [phone] | | | | | | | | +--------+ + + + + documented as of this encounter Visit Diagnoses Not on filedocumented in this encounter"
--- OUTSIDE RECORDS SUMMARY | ~2018-12-09 | XMS | Encounter Summary ---
Demographics + + + | Address | [address] | | | [place] [address] | + + + | Home Phone [...] [address] | | | | | [place] [address] | | + + + + + | Thania Mallory | ECON | [address] | | | | | [place] [address] | | + + + + + | Deidra Weldon | ECON | [address] | | | | | [place] | | | | | [address] | | + + + + + Care Team Providers + +------+ + | Care Parts Sales Counterperson Name | Role | Phone | + [...] (psychosocial update | | | | Rd [place], [place] | [place], [place] | from pt's mom) | | | | [address] | [address] | | | | | [phone] | | | +--------+ + + + [...] Denise | | | | | | [place] | | | | | | [address] | | | | | | [phone] | | | | | | | | +--------+ + + + + documented as of this encounter Visit Diagnoses Not on filedocumented in this encounter"
--- OUTSIDE RECORDS SUMMARY | ~2018-12-09 | XMS | Encounter Summary ---
Demographics + + + | Address | [address] | | | [place] [address] | + + + | Home Phone [...] | | | | | [place] [address] | | + + + + + | Thania Mallory | ECON | [address] | | | | | [place] [address] | | + + + + + | Deidra Weldon | ECON | [address] | | | | | [place] | | | | | [address] | | + + + + + Care Team Providers + +------+ + | Care Integration Consultant Name | Role | Phone | [...] 03/05/ | Documentati | Transplant | Kelsi Martinez | SHERIDAN Waitlist (Add to | | 2013 | on | Coordinators [address] | RN [address] | list) | | | | [address] [facility] | [facility] | | | | | Rd [place], [place] | [place], [place] | | | | | [address] | [address] | | | | | [phone] | | | +--------+ + + + [...] Denise | | | | | | [place], [place] | | | | | | [address] | | | | | | [phone] | | | | | | | | +--------+ + + + + documented as of this encounter Visit Diagnoses Not on filedocumented in this encounter"
--- OUTSIDE RECORDS SUMMARY | ~2018-12-09 | XMS | Encounter Summary ---
Demographics + + + | Address | [address] | | | [place] [address] | + + + | Home Phone [...] | | | | | [place] [address] | | + + + + + | Thania Mallory | ECON | [address] | | | | | [place] [address] | | + + + + + | Deidra Wedlon | ECON | [address] | | | | | [place] | | | | | [address] | | + + + + + Care Team Providers + +------+ + | Care Liquid Loader Name | Role | Phone | [...] on pt's | | | | Rd [place], [place] | [place], [place] | support plan & | | | | [address] | [address] | social changes) | | | | [phone] | | | +--------+ + + + [...] Denise | | | | | | [place], [place] | | | | | | [address] | | | | | | [phone] | | | | | | | | +--------+ + + + + documented as of this encounter Visit Diagnoses Not on filedocumented in this encounter"
--- OUTSIDE RECORDS SUMMARY | ~2018-12-09 | XMS | Encounter Summary ---
Demographics + + + | Address | [address] | | | [place] [address] | + + + | Home Phone [...] | | | | | [place] [address] | | + + + + + | Thania Mallory | ECON | [address] | | | | | [place] [address] | | + + + + + | Deidra Weldon | ECON | [address] | | | | | [place] | | | | | [address] | | + + + + + Care Team Providers + +------+ + | Care Copper Flotation Operator Name | Role | Phone | [...] | ) | | | | [address] [facility] | [facility] | | | | | Rd [place], [place] | [place], [place] | | | | | [address] | [address] | | | | | [phone] | | | +--------+ + + + [...] [place] | | | | | | [address] | | | | | | [phone] | | | | | | | | +--------+ + + + + documented as of this encounter Visit Diagnoses Not on filedocumented in this encounter"
--- OUTSIDE RECORDS SUMMARY | ~2018-12-09 | XMS | Encounter Summary ---
Demographics + + + | Address | [address] | | | [place] [address] | + + + | Home Phone [...] | | | | | [place] [address] | | + + + + + | Thania Mallory | ECON | [address] | | | | | [place] [address] | | + + + + + | Deidra Weldon | ECON | [address] | | | | | [place] | | | | | [address] | | + + + + + Care Team Providers + +------+ + | Care Credit Risk Review Officer Name | Role | Phone | [...] Shun | | | | | ANNALISA [facility] | [facility] | | | | | Rd [place], [place] | [place], [place] | | | | | [address] | [address] | | | | | [phone] | | | +--------+ + + + [...] | | | | | | [place], [place] | | | | | | [address] | | | | | | [phone] | | | | | | | | +--------+ + + + + documented as of this encounter Visit Diagnoses Not on filedocumented in this encounter"
--- OUTSIDE RECORDS SUMMARY | ~2018-12-09 | XMS | Encounter Summary ---
Demographics + + + | Address | [address] | | | [place] [address] | + + + | Home Phone [...] | Author | [facility] | | | and Josephana | + + + | Organization | [facility] | [...] Team Providers + +------+ + | Care Quality Nurse Name | Role | Phone | [...] + + | 11/15/ | Telephone | [facility] | George Torres RN | Medication Problem | | 2019 | | [address] | | (N O2) | | | | [place] | | | | | | [address] | | | | | | [phone] | | | +--------+ + + + [...] [address] | | | | | | [address] | | | | | | [place] [address] | | | | | | [phone] | | | | | | | | +--------+---------+ + + + documented as of this encounter Visit Diagnoses Not on filedocumented in this encounter"
--- OUTSIDE RECORDS SUMMARY | ~2018-12-09 | XMS | Encounter Summary ---
Demographics + + + | Address | [address] | | | [place] [address] | + + + | Home Phone [...] | | | | | [place] [address] | | + + + + + | Thania Mallory | ECON | [address] | | | | | [place] [address] | | + + + + + | Deidra Weldon | ECON | [address] | | | | | [place] | | | | | [address] | | + + + + + Care Team Providers + +------+ + | Care Mechanical Tech Name | Role | Phone | [...] 03/08/ | Telephone | Pediatric | Sudhakar oJy | Follow-up visit (r/s | | 2012 | | Nephrology at | MD Emanuel [address] | f/u appt on | | | | [address] | [address] | 03/16/12 to [place]) | | [facility] | [place], [place] | | | | | [address] | [address] | | | | | Caro Chan Mailcode: | [phone] | | | | | [address] | | | | | | [place], [place] | | | | | | [address] | | | | | | [phone] | | | +--------+ + + + [...] Denise | | | | | | [place], [place] | | | | | | [address] | | | | | | [phone] | | | | | | | | +--------+ + + + + documented as of this encounter Visit Diagnoses Not on filedocumented in this encounter"
--- OUTSIDE RECORDS SUMMARY | ~2018-12-09 | XMS | Encounter Summary ---
Demographics + + + | Address | [address] | | | [place] [address] | + + + | Home Phone [...] | | | | | [place] [address] | | + + + + + | Thania Mallory | ECON | [address] | | | | | [place] [address] | | + + + + + | Deidra Weldon | ECON | [address] | | | | | [place] | | | | | [address] | | + + + + + Care Team Providers + +------+ + | Care Legal Receptionist Name | Role | Phone | [...] | Update | | | | ANNALISA [facility] | [facility] | | | | | Rd [place], [place] | [place], [place] | | | | | [address] | [address] | | | | | [phone] | | | +--------+ + + + [...] Denise | | | | | | [place], [place] | | | | | | [address] | | | | | | [phone] | | | | | | | | +--------+ + + + + documented as of this encounter Visit Diagnoses Not on filedocumented in this encounter"
--- OUTSIDE RECORDS SUMMARY | ~2018-12-09 | XMS | Encounter Summary ---
Demographics + + + | Address | [address] | | | [place] [address] | + + + | Home Phone [...] | | | | | [place] [address] | | + + + + + | Thania Mallory | ECON | [address] | | | | | [place] [address] | | + + + + + | Deidra Weldon | ECON | [address] | | | | | [place] | | | | | [address] | | + + + + + Care Team Providers + +------+ + | Care Development Advisor Name | Role | Phone | [...] Nephrology at | RN [address] | Update | | | | [address] | [facility] | | | | | [facility] | [place], [place] | | | | | [address] [place] | [address] | | | | | [facility] Mailcode: | | | | | | [address] | | | | | | [place], [place] | | | | | | [address] | | | | | | [phone] | | | +--------+ + + + [...] Denise | | | | | | [place] | | | | | | [address] | | | | | | [phone] | | | | | | | | +--------+ + + + + documented as of this encounter Visit Diagnoses Not on filedocumented in this encounter"
--- OUTSIDE RECORDS SUMMARY | ~2018-12-09 | XMS | Encounter Summary ---
Demographics + + + | Address | [address] | | | [place] [address] | + + + | Home Phone [...] | | | | | [place] [address] | | + + + + + | Thania Mallory | ECON | [address] | | | | | [place] [address] | | + + + + + | Deidra Weldon | ECON | [address] | | | | | [place] | | | | | [address] | | + + + + + Care Team Providers + +------+ + | Care Vinyl Flooring Installer Name | Role | Phone | [...] (Evaluation | | | | ANNALISA Hoffmann [facility] | [facility] [address] | Scheduled) | | | | Rd [place], [place] | [facility] [place] | | | | | [address] | [address] | | | | | [phone] | [phone] | | | | | | | [...] Denise | | | | | | [place] | | | | | | [address] | | | | | | [phone] | | | | | | | | +--------+ + + + + documented as of this encounter Visit Diagnoses Not on filedocumented in this encounter"
--- OUTSIDE RECORDS SUMMARY | ~2018-12-09 | XMS | Encounter Summary ---
Demographics + + + | Address | [address] | | | [place] [address] | + + + | Home Phone [...] | | | | | [place] [address] | | + + + + + | Thania Mallory | ECON | [address] | | | | | [place] [address] | | + + + + + | Deidra Weldon | ECON | [address] | | | | | [place] | | | | | [address] | | + + + + + Care Team Providers + +------+ + | Care Risk Management Director Name | Role | Phone | [...] | | | | | ANNALISA [address]mann [facility] | [facility] | | | | | Rd [place], [place] | [place], [place] | | | | | [address] | [address] | | | | | [phone] | | | +--------+ + + + [...] Denise | | | | | | [place] | | | | | | [address] | | | | | | [phone] | | | | | | | | +--------+ + + + + documented as of this encounter Visit Diagnoses Not on filedocumented in this encounter"
--- OUTSIDE RECORDS SUMMARY | ~2018-12-09 | XMS | Encounter Summary ---
Demographics + + + | Address | [address] | | | [place] [address] | + + + | Home Phone [...] | | | | | [place] [address] | | + + + + + | Thania Mallory | ECON | [address] | | | | | [place] [address] | | + + + + + | Deidra Weldon | ECON | [address] | | | | | [place] | | | | | [address] | | + + + + + Care Team Providers + +------+ + | Care Manager Stone Name | Role | Phone | + [...] + + | 12/24/ | Telephone | Transplant | Mariza Hsu | Social work | | 2012 | | Coordinators [address] | [address] | consultation (pt | | | | [address] [place] | [address] | request to change | | | | Rd [place], [place] | [place], [place] | clinic appt) | | | | [address] | [address] | | | | | [phone] | | | +--------+ + + + [...] Denise | | | | | | [place] | | | | | | [address] | | | | | | [phone] | | | | | | | | +--------+ + + + + documented as of this encounter Visit Diagnoses Not on filedocumented in this encounter"
--- OUTSIDE RECORDS SUMMARY | ~2018-12-09 | XMS | Clinical Summary ---
Demographics + + + | Address | [address] | | | [place] [address] | + + + | Home Phone [...] | | | | | [place] [address] | | + + + + + | Thania Mallory | ECON | [address] | | | | | [place] [address] | | + + + + + | Deidra Weldon | ECON | [address] | | | | | [place], [place] | | | | | [address] | | + + + + + Care Team Providers + +------+ + | Care Pullman Conductor Name | Role | Phone | + +------+ + | Jonathan Alonso MD | PCP | | + +------+ + Source Comments DANILO is fully live on both EpicCare Ambulatory and EpicCare InPatient.[facility] Allergies + + + + + [...] Denise | | | | | | [place], [place] | | | | | | [address] | | | | | | [phone] | | | | | | | | +--------+ + + + + + + + + + | Health Maintenance | Due Date | Last Done | Comments | + + + + + | Pneumococcal | | 06/21/2012 | | | vaccination (2 of 3 | 3 | | | | - PPSV23) | | | | + + + + + | Influenza (Flu) | | 12/13/2012 | | | vaccination (#1) | 9 | | | + [...] | | | | | | | [address] | | + +--------+ +--------+ + +--------+ | AUTOMATIC SPINNING LATHE SETTER MEDICAID | AUTOMATIC SPINNING LATHE SETTER | [id number] | Effect | | | [...] | RENAL | | for | | [place], | | | | RECIPI | | all | | [place] [address] | | | | ENT | | [...] | | al/Fam | | 1995 | [phone] | [address] [place] | | | kamron | | | 2 (Home) | [address] | | | | | | [phone] | | | | | | | 0 (Work) | | + +--------+ +--------+ + + | CORY ALVES | Wanderbhavin | Mother | [birth year] | | [address] | | | l | | [address] | [phone] | [address] [place] | | | [place] | | | 2 (Home) | [address] | | | g | | | | | + +--------+ +--------+ + +
--- OUTSIDE RECORDS SUMMARY | ~2018-12-09 | XMS | Encounter Summary ---
Demographics + + + | Address | [address] | | | [place] [address] | + + + | Home Phone [...] | | | | | [place] [address] | | + + + + + | Thania Mallory | ECON | [address] | | | | | [place] [address] | | + + + + + | Deidra Weldon | ECON | [address] | | | | | [place] | | | | | [address] | | + + + + + Care Team Providers + +------+ + | Care Ear Pull Machine Operator Name | Role | Phone | + +------+ + | Shahid Camargo MD | PCP | Unavailable | + +------+ + Reason for Visit +--------+ + | Reason | Comments | +--------+ + | Other | Requested [id number] | +--------+ + Encounter Details +--------+ + + + + | Date | Type | Department | Care Team | Description | +--------+ + + + + | 11/15/ | Telephone | Transplant | Jesus Edmond, | Other (Requested | | 2012 | | Coordinators [address] | [address] | [id number]) | | | | ANNALISA Hoffmann [facility] | [facility] [address] | | | | | Rd [place], [place] | [place], [place] | | | | | [address] | [address] | | | | | [phone] | [phone] | | | | | | | [...] | | | | | | [place], [place] | | | | | | [address] | | | | | | [phone] | | | | | | | | +--------+ + + + + documented as of this encounter Visit Diagnoses Not on filedocumented in this encounter"
--- OUTSIDE RECORDS SUMMARY | ~2018-12-09 | XMS | Encounter Summary ---
Demographics + + + | Address | [address] | | | [place] [address] | + + + | Home Phone [...] | | | | | [place] [address] | | + + + + + | Thania Mallory | ECON | [address] | | | | | [place] [address] | | + + + + + | Deidra Weldon | ECON | [address] | | | | | [place] | | | | | [address] | | + + + + + Care Team Providers + +------+ + | Care Event Specialist Food Demonstrator Name | Role | Phone | [...] Visit | Services Inpatient | [address] [facility] | disease, stage V | | | | [address] [facility] | [facility] | (HCC) (Primary Dx) | | | | [facility] [address] | [place], [place] | | | | | Mailcode: [facility]18 | [address] | | | | | [place], [place] | [phone] | | | | | [address] | | | | | | [phone] | | | +--------+---------+ + + + [...] a nutrition perspective. Argentina Mehta, MS, RD, LINTER OPERATOR, LD documented in this e ncounter Plan of Treatment +--------+ + + + + | Date | Type | Specialty | Care Team | Description | +--------+ + + + + | 05/04/ | Hospital | Adult Acute Care | El Starr MD | | | 2022 | Encounter | | [address] | | | | | | [place], [place] | | | | | | [address] | | | | | | [phone] | | | | | | | | +--------+ + + + + documented as of this encounter Procedures + +--------+ + + + | Procedure Name | Priori | Date/Time | Associated Diagnosis | Comments | | | ty | | | | + +--------+ + + + | [place] [facility] INITIAL | Routin | 12/21/2012 | Chronic kidney | | | ASSESSMNT X15MIN | e | 9:34 PM | disease, stage V | | | | | PDT | (HCC) | | + +--------+ + + + documented in this encounter Visit Diagnoses + + | Diagnosis | + + | Chronic kidney disease, stage V ([facility]) - Primary Chronic kidney disease, Stage V | + + documented in this encounter
--- OUTSIDE RECORDS SUMMARY | ~2018-12-09 | XMS | Encounter Summary ---
Demographics + + + | Address | [address] | | | [place] [address] | + + + | Home Phone [...] | | | | | [place] [address] | | + + + + + | Thania Mallory | ECON | [address] | | | | | [place] [address] | | + + + + + | Deidra Weldon | ECON | [address] | | | | | [place] | | | | | [address] | | + + + + + Care Team Providers + +------+ + | Care Cashier Supervisor Name | Role | Phone | [...] | Nephrology at | RN [address] [facility] | | | | | [place] | [facility] | | | | | [facility] | [place], [place] | | | | | [address] | [address] | | | | | [place] Mailcode: | | | | | | [address] | | | | | | [place], [place] | | | | | | [address] | | | | | | [phone] | | | +--------+ + + + [...] Denise | | | | | | [place], [place] | | | | | | [address] | | | | | | [phone] | | | | | | | | +--------+ + + + + documented as of this encounter Visit Diagnoses + + | Diagnosis | + + | 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
--- OUTSIDE RECORDS SUMMARY | ~2018-12-09 | XMS | Encounter Summary ---
Demographics + + + | Address | [address] | | | [place] [address] | + + + | Home Phone [...] | | | | | [place] [address] | | + + + + + | Thania Mallory | ECON | [address] | | | | | [place] [address] | | + + + + + | Deidra Weldon | ECON | [address] | | | | | [place] | | | | | [address] | | + + + + + Care Team Providers + +------+ + | Care Temporary Administrative Assistant Name | Role | Phone | + +------+ + | Jonathan Alonso MD | PCP | | + +------+ + Reason for Visit + + + | Reason | Comments | + + + | KP Waitlist | LD questions | + + + Encounter Details +--------+ + + + + | Date | Type | Department | Care Team | Description | +--------+ + + + + | 04/28/ | Telephone | Transplant | Brittney Reyez RN | KP Waitlist (LD | | 2016 | | Coordinators [address] | [address] | questions) | | | | [address] | [facility] | | | | | [place], [place] | [place], [place] | | | | | [address] | [address] | | | | | [phone] | | | +--------+ + + + [...] | | | | | | [place] | | | | | | [address] | | | | | | [phone] | | | | | | | | +--------+ + + + + documented as of this encounter Visit Diagnoses Not on filedocumented in this encounter"
--- OUTSIDE RECORDS SUMMARY | ~2018-12-09 | XMS | Encounter Summary ---
Demographics + + + | Address | [address] | | | [place] [address] | + + + | Home Phone [...] | | | | | [place] [address] | | + + + + + | Thania Mallory | ECON | [address] | | | | | [place] [address] | | + + + + + | Deidra Weldon | ECON | [address] | | | | | [place] | | | | | [address] | | + + + + + Care Team Providers + +------+ + | Care Farmer Cash Grain Name | Role | Phone | + [...] + + | 08/17/ | Documentati | Transplant | Mariza Hsu | Social Work Waitlist | | 2016 | on | Coordinators [address] | [address] | Update ([place] [address] | | | | ANNALISA Hoffmann [facility] | [facility] [address] | clinic visit - | | | | Rd [place], [place] | [place], [place] | psychosocial | | | | [address] | [address] | readiness update) | | | | [phone] | | | +--------+ + + + [...] Denise | | | | | | [place], [place] | | | | | | [address] | | | | | | [phone] | | | | | | | | +--------+ + + + + documented as of this encounter Visit Diagnoses Not on filedocumented in this encounter"
--- OUTSIDE RECORDS SUMMARY | ~2018-12-09 | XMS | Encounter Summary ---
Demographics + + + | Address | [address] | | | [place] [address] | + + + | Home Phone [...] | | | | | [place] [address] | | + + + + + | Thania Mallory | ECON | [address] | | | | | [place] [address] | | + + + + + | Deidra Weldon | ECON | [address] | | | | | [place] | | | | | [address] | | + + + + + Care Team Providers + +------+ + | Care Powertrain Calibration Engineer Name | Role | Phone | [...] questions) | | | | [address]NAL[address] [place] | [facility] | | | | | [place], [place] | [place], [place] | | | | | [address] | [address] | | | | | [phone] | | | +--------+ + + + [...] Denise | | | | | | [place] | | | | | | [address] | | | | | | [phone] | | | | | | | | +--------+ + + + + documented as of this encounter Visit Diagnoses Not on filedocumented in this encounter"
--- OUTSIDE RECORDS SUMMARY | ~2018-12-09 | XMS | Encounter Summary ---
Demographics + + + | Address | [address] | | | [place] [address] | + + + | Home Phone [...] | | | | | [place] [address] | | + + + + + | Thania Mallory | ECON | [address] | | | | | [place] [address] | | + + + + + | Deidra Weldon | ECON | [address] | | | | | [place] | | | | | [address] | | + + + + + Care Team Providers + +------+ + | Care Communication And Outreach Manager Name | Role | Phone | [...] Hoffmann | | | | | [address] [facility] | [facility] | | | | | Rd [place], [place] | [place], [place] | | | | | [address] | [address] | | | | | [phone] | | | +--------+ + + + [...] Denise | | | | | | [place], [place] | | | | | | [address] | | | | | | [phone] | | | | | | | | +--------+ + + + + documented as of this encounter Visit Diagnoses Not on filedocumented in this encounter"
--- OUTSIDE RECORDS SUMMARY | ~2018-12-09 | XMS | Encounter Summary ---
Demographics + + + | Address | [address] | | | [place] [address] | + + + | Home Phone [...] | | | | | [place] [address] | | + + + + + | Thania Mallory | ECON | [address] | | | | | [place] [address] | | + + + + + | Deidra Weldon | ECON | [address] | | | | | [place] | | | | | [address] | | + + + + + Care Team Providers + +------+ + | Care Agribusiness Professor Name | Role | Phone | [...] | Update | | | | [facility] | [facility] | | | | | Rd [place], [place] | [place], [place] | | | | | [address] | [address] | | | | | [phone] | | | +--------+ + + + [...] Denise | | | | | | [place] | | | | | | [address] | | | | | | [phone] | | | | | | | | +--------+ + + + + documented as of this encounter Visit Diagnoses Not on filedocumented in this encounter"
--- OUTSIDE RECORDS SUMMARY | ~2018-12-09 | XMS | Encounter Summary ---
Demographics + + + | Address | [address] | | | [place] [address] | + + + | Home Phone [...] | | | | | [place] [address] | | + + + + + | Thania Mallory | ECON | [address] | | | | | [place] [address] | | + + + + + | Deidra Weldon | ECON | [address] | | | | | [place] | | | | | [address] | | + + + + + Care Team Providers + +------+ + | Care Instrument Fitter Name | Role | Phone | [...] | | | | | [place], | | | | | | [place] [address] | | | +--------+ + + + [...] Denise | | | | | | [place], [place] | | | | | | [address] | | | | | | [phone] | | | | | | | [...] DANILO - | [address], | [place] [address] | | | IMMUNOGENETICS/TRANS | [address] | | | | [facility] | | | | + + + + + documented in this encounter Visit Diagnoses Not on filedocumented in this encounter"
--- OUTSIDE RECORDS SUMMARY | ~2018-12-09 | XMS | Encounter Summary ---
Demographics + + + | Address | [address] | | | [place] [address] | + + + | Home Phone [...] | | | | | [place] [address] | | + + + + + | Thania Mallory | ECON | [address] | | | | | [place] [address] | | + + + + + | Deidra Weldon | ECON | [address] | | | | | [place] | | | | | [address] | | + + + + + Care Team Providers + +------+ + | Care Testing Specialist Name | Role | Phone | [...] (Immunizations) | | | | ANNALISA Hoffmann [facility] | [facility] | | | | | Rd [place], [place] | [place], [place] | | | | | [address] | [address] | | | | | [phone] | | | +--------+ + + + [...] Denise | | | | | | [place], [place] | | | | | | [address] | | | | | | [phone] | | | | | | | | +--------+ + + + + documented as of this encounter Visit Diagnoses Not on filedocumented in this encounter"
--- OUTSIDE RECORDS SUMMARY | ~2018-12-09 | XMS | Encounter Summary ---
Demographics + + + | Address | [address] | | | [place] [address] | + + + | Home Phone [...] | Author | [facility] (Historical as of | | | 10-20-18) | + + + | Organization | [facility] (Historical as of | | | 10-20-18) [...] Team Providers + +------+ + | Care Physical Therapist Name | Role | Phone [...] | | Internal | Diagnoses | | [facility] 4th | | | | Medicine | SOB | | [address] | | | | | (shortness | | [address] | | | | | of breath) | | [address] | | | | | Pleural | | [place], [place] | | | | | effusion on | | [address] Phone: | | | | | right ESRD | | [phone] | | | | | needing | | Fax: | | | | | dialysis | | [phone] | | | | | (HCC) | | | +--------+--------+ + + + + Encounter Details +--------+ + + + + | Date | Type | Department | Care Team | Description | +--------+ + + + + | 10/17/ | Hospital | [facility] | Vivek Teran, | SOB (shortness of | | 2019 - | Encounter | [facility] | MD [address] | breath) (Primary | | | | [address] | [place] [address] | Dx); Pleural | | 10/20/ | | [address] | [phone] | effusion on right; | | 2019 | | [place] [address] | | ESRD needing | | | | [phone] | Nikita, | dialysis ([facility]); End | | | | | MD Naresh [address] | stage renal disease | | | | | [address] | (HCC) | | | | | [place] [address] | | | | | | [phone] | | | | | | | | | | | | Gerber Pearson MD | | | | | | [address] | | | | | | [place] [address] | | | | | | [phone] | | | | | | | [...] note may be different from the original. [facility] Service: NEPHROLOGY Progress Note Dara Weldon 23 y.o. [id number] female TIEN NICHOLSON 23-year-old female with [...] AV FISTULA; Surgeon: Rik Simon MD; Location: [facility]; Service: Vascula r; Laterality: Left; cephalic AV FISTULA REPAIR Left 03/07/2014 Procedure: AV FISTULA - GRAFT REPAIR/REVISION; Surgeon: Rik Simon MD; Location: [facility]; Service: Vascular; Laterality: Left; DECLOT GRAFT Left 03/07/2014 Procedure: GRAFT - DECLOT; Surgeon: Rik Simon MD; Location: [facility]; Service: Vas cular; Laterality: Left; DIALYSIS FISTULA CREATION N/A 04/08/2014 Procedure: DIALYSIS CATHETER - INSERTION; Surgeon: Rik Simon MD; Location: [facility] ; Service: Vascular; Laterality: N/A; tunneled catheter LAPAROSCOPIC PERITONEAL DIALYSIS CATHETER INSERTION x2 LAPAROSCOPIC PERITONEAL DIALYSIS CATHETER INSERTION Right 07/2013 current dialysis access MWF dialysis RENAL BIOPSY Left 2003 SUPERFICIALIZATION OF AV FISTULA Left 06/24/2014 Procedure: AV FISTULA - SUPERFICIALIZATION; Surgeon: Rik Simon MD; Location: [facility]; Service: Vascular; Laterality: Left; [...] file Social History Narrative She lives in [facility]. She does not work. She [...] ral space is punctured with an 5 [place] DiObex centesis catheter. Fluid is aspirated without complication. [...] 1 VIEW (10/17/2018); CHEST TWO V IEWS [id number] (10/17/2018); FINDINGS: Compared to the prior examination [...] MR, severe TR.severe pulmonary hypertens ion Chest e-ntp-mywiabnknett with pulmonary edema and large right pleural [...] earlier and charting completed later Dictation software, [employer], used which may contain error for similar sounding words even af ter review. Personal communication requested for any clarification. Gerber Pearson MD - 10/19/2018 7:48 AM PDTFormatting of this note may be different from the original. [facility] Service: Hospitalist Progress Note Hospital Day: LOS: [...] with dyspnea Patient was recently discharged from [facility] on 08/23/2018. For full note, please see discha rge summary from hospitalist. In summary, the patient was admitted for noncardiogenic pulmo nary edema after thoracentesis. At that point, prior to admission, she was seen at the [facility] at [facility] in [place] on 08/21 where she underwent right th [...] BUN 90 on admission -History of a Ellsworth Schnlein purpura -Last hemodialysis approximately 2 weeks [...] may be diffe rent from the original. [facility] Service: Hospitalist Progress Note Hospital Day: LOS: [...] with dyspnea Patient was recently discharged from [facility] on 08/23/2018. For full note, please see discha rge summary from hospitalist. In summary, the patient was admitted for noncardiogenic pulmo nary edema after thoracentesis. At that point, prior to admission, she was seen at the [facility] at [facility] in [place] on 08/21 where she underwent right th [...] BUN 90 on admission -History of a Ellsworth Schnlein purpura -Last hemodialysis approximately 2 weeks [...] note may be different from the original. [facility] Service: NEPHROLOGY Progress Note Dara Weldon 23 y.o. [id number] female [facility] Day: LOS: 1 day 23-year-old [...] AV FISTULA; Surgeon: Rik Simon MD; Location: [facility]; Service: Vascula r; Laterality: Left; cephalic AV FISTULA REPAIR Left 03/07/2014 Procedure: AV FISTULA - GRAFT REPAIR/REVISION; Surgeon: Rik Simon MD; Location: [facility]; Service: Vascular; Laterality: Left; DECLOT GRAFT Left 03/07/2014 Procedure: GRAFT - DECLOT; Surgeon: Rik Simon MD; Location: [facility]; Service: Vas cular; Laterality: Left; DIALYSIS FISTULA CREATION N/A 04/08/2014 Procedure: DIALYSIS CATHETER - INSERTION; Surgeon: Rik Simon MD; Location: [facility] ; Service: Vascular; Laterality: N/A; tunneled catheter LAPAROSCOPIC PERITONEAL DIALYSIS CATHETER INSERTION x2 LAPAROSCOPIC PERITONEAL DIALYSIS CATHETER INSERTION Right 07/2013 current dialysis access MWF dialysis RENAL BIOPSY Left 2003 SUPERFICIALIZATION OF AV FISTULA Left 06/24/2014 Procedure: AV FISTULA - SUPERFICIALIZATION; Surgeon: Rik Simon MD; Location: [facility]; Service: Vascular; Laterality: Left; [...] file Social History Narrative She lives in [facility]. She does not work. She [...] QTC Calculation (Bezet) 469 ms Calculated P [place] 46 degrees Calculated R [place] 127 degrees Calculated T [place] 94 degrees Diagnosis Normal sinus rhythm Right [...] MR, severe TR.severe pulmonary hypertens ion Chest h-oim-hcxvaomstrtk with pulmonary edema and large right pleural [...] earlier and charting completed later Dictation software, [employer], used which may contain error for similar sounding words even af ter review. Personal communication requested for any clarification. Gerber Pearson MD - 10/17/2018 7:17 AM PDTFormatting of this note may be different from the original. [facility] Service: Hospitalist Progress Note Hospital Day: LOS: [...] with dyspnea Patient was recently discharged from [facility] on 08/23/2018. For full note, please see discha rge summary from hospitalist. In summary, the patient was admitted for noncardiogenic pulmo nary edema after thoracentesis. 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 Mahmood, recommends medi oly management and [...] creatinine 14, BUN 90 -History of a Ellsworth Schnlein purpura -Last hemodialysis approximately 2 weeks [...] MD 10/17/2018in this encounter Plan of Treatment +--------+---------+ + + + | Date | Type | Specialty | Care Team | Description | +--------+---------+ + + + | 12/18/ | Office | Pulmonology | Denny Alexander | | | 2018 | Visit | | Deny Briggs MD [address] | | | | | [address] | | | | | | [place] [address] | | | | | | [phone] | | | | | | | [...] | + +--------+ + + + | [facility] CARD PANEL W/O | STAT | 10/17/2018 [...] (H) | 0.50 - 1.00 mg/dL | [facility] | | | | | LABORATORY | + + + + + | BUN/CREAT | 4 | | [facility] | | | | | LABORATORY [...] | | | | | performed at [facility], [facility] [address] | | | | | [facility], | | | | | [place] [address] | | | + + + + + + + | Specimen | + + | Blood | + + + + + + + | Performing | Address | City/State/Zipcode | Phone Number | | Organization | | | | + + + + + | [facility] | [address] | [place] [address] | [phone] | | LABORATORY | [address]vd[address] | | [...] OR EXPIRATION ONLY CLINICAL INFORMATION: Post | [facility] | | thoracentesis. COMPARISON: US THORACENTESIS WITH IMAGING GUIDANCE | RADIOLOGY | | (10/18/2018); XR CHEST 1 VIEW (10/17/2018); CHEST TWO VIEWS [id number] | | | (10/17/2018); FINDINGS: Compared to [...] VIEW | | (10/17/2018); CHEST TWO VIEWS [id number] (10/17/2018); | | FINDINGS: | | Compared [...] + + | [facility] | [address] [facility] | [place] [address] | | + + + + + [...] Dictated by: Javon Connell Nicole Signed by: Sill, | | | Colten Kay Date/Time: 10/18/2018 [...] pleural space is punctured with an 5 [place] DiObex centesis | | | catheter. Fluid is aspirated [...] pleural space is punctured with an 5 [place] Yueh | | centesis catheter. Fluid is [...] | + + + + + | [facility] | [address] | [place] [address] | | + + + + + [...] + + + + | Calculated P [place] | 46 | degrees | [facility] | + + + + + | Calculated R [place] | 127 | degrees | [facility] | + + + + + | Calculated T [place] | 94 | degrees | [facility] | + + + + + | Diagnosis | Normal sinus rhythmRight | | [facility] | | | axis | | [...] + + + + + | [facility] | [address] | [place] [address] | | + + + + + [...] the | | | | | MDRD IDCT traceable | | | | | equation.Testing | | | | | performed at [facility], [address] | | | | | [facility], | | | | | [place] [address] | | | + + + + + + + | Specimen | + + | Blood | + + + + + + + | Performing | Address | City/State/Zipcode | Phone Number | | Organization | | | | + + + + + | [facility] | [address] | [place] [address] | [phone] | | LABORATORY | [address]vd[address] | | | + + + + + Magnesium (10/18/2018 5:44 AM) + + + + + | Component | Value | Ref Range | Performed At | + + + + + | MAGNESIUM | 2.4Comment: Testing | 1.7 - 2.4 mg/dL | [facility] | | | performed at [facility], [address] | | LABORATORY | | | [facility] [address] [facility] [address], | | | | | [place] [address] | | | + + + + + + + | Specimen | + + | Blood | + + + + + + + | Performing | Address | City/State/Zipcode | Phone Number | | Organization | | | | + + + + + | [facility] | [address] | [place] [address] | [phone] | | LABORATORY | Blvd[address] | | [...] performed | | | | | at [facility], [address] | | | | | [facility], | | | | | [place] [address] | | | | |Testing performed at [facility], [address] [place] [address] | | | | | | | | + + + + + + + | Specimen | + + | Blood | + + + + + + + | Performing | Address | City/State/Zipcode | Phone Number | | Organization | | | | + + + + + | [facility] | [address] | [place] [address] | [phone] | | LABORATORY | Blvd[address] | | | + + + + + Troponin I (10/17/2018 6:05 PM) + + + + + | Component | Value | Ref Range | Performed At | + + + + + | TROPONIN I | 0.175 (H)Comment: 0.04 | 0.00 - 0.04 ng/mL | [facility] | | | ng/mL or [...] performed at | | | | | [facility];[address] | | | | | Bl;[place] [address] | | | + + + + + + + | Specimen | + + | Blood | + + + + + + + | Performing | Address | City/State/Zipcode | Phone Number | | Organization | | | | + + + + + | [facility] | [address] | [place] [address] | | + + + + + CPK (10/17/2018 6:05 PM) + + + + + | Component | Value | Ref Range | Performed At | + + + + + | CPK | 443 (H)Comment: Testing | 30 - 240 U/L | [facility] | | | performed at [facility];[address];[place] | | | | | [address] | | | + + + + + + + | Specimen | + + | Blood | + + + + + + + | Performing | Address | City/State/Zipcode | Phone Number | | Organization | | | | + + + + + | [facility] | [address] | [place] [address] | | + + + + + Troponin I (10/17/2018 11:59 AM) + + + + + | Component | Value | Ref Range | Performed At | + + + + + | TROPONIN I | 0.119 (H)Comment: 0.04 | 0.00 - 0.04 ng/mL | [facility] | | | ng/mL or [...] performed at | | | | | [facility];[address] [place] [address] | | | | | [facility];[place] [address] | | | + + + + + + + | Specimen | + + | Blood | + + + + + + + | Performing | Address | City/State/Zipcode | Phone Number | | Organization | | | | + + + + + | [facility] | [address] | [place] [address] | | + + + + + CPK (10/17/2018 11:59 AM) + + + + + | Component | Value | Ref Range | Performed At | + + + + + | CPK | 623 (H)Comment: Testing | 30 - 240 U/L | [facility] | | | performed at [facility];[address] | [address];[place] | | | | | [address] | | | + + + + + + + | Specimen | + + | Blood | + + + + + + + | Performing | Address | City/State/Zipcode | Phone Number | | Organization | | | | + + + + + | [facility] | [address] | [place] [address] | | + + + + + Protime-INR (10/17/2018 8:10 AM) + + + + + | Component | Value | Ref Range | Performed At | + + + + + | INR | 1.2Comment: REFERENCE | | [facility] | | | RANGE:0.9 - [...] | | | | | performed at [facility];[address];[place] | | | | | [address] | | | + + + + + + + | Specimen | + + | Blood | + + + + + + + | Performing | Address | City/State/Zipcode | Phone Number | | Organization | | | | + + + + + | [facility] | [address] | [place] [address] | | + + + + + [...] [facility] | [address] | [place] [address] | | + + + + + [...] + + + + | Calculated P [place] | 33 | degrees | [facility] | + + + + + | Calculated R [place] | -22 | degrees | [facility] | + + + + + | Calculated T [place] | 92 | degrees | [facility] | + + + + + | Diagnosis | Sinus | | [facility] | | | tachycardiaNonspecific T | [...] -COMPUTER (500), | | | | | sound editor Daniela Esquivel | | | | | (18) on 10/17/2018 | | | | | 9:07:21 AM | | | + + + + + + + + + + | Performing | Address | City/State/Zipcode | Phone Number | | Organization | | | | + + + + + | [facility] | [address] | [place] [address] | | + + + + + Brain natriuretic peptide (10/17/2018 3:49 AM) + + + + + | Component | Value | Ref Range | Performed At | + + + + + | BRAIN NATRIURETIC | 1,151.26 (H)Comment: | 0 - 100 pg/mL | [facility] | | PEPTIDE | Testing performed at | | | | | [facility];[address] | | | | [address];[place] [address] | | | + + + + + + + + + + | Performing | Address | City/State/Zipcode | Phone Number | | Organization | | | | + + + + + | [facility] | [address] | [place] [address] | | + + + + + Troponin I, Lab (10/17/2018 3:49 AM) + + + + + | Component | Value | Ref Range | Performed At | + + + + + | TROPONIN I | 0.151 (H)Comment: 0.04 | 0.00 - 0.04 ng/mL | [facility] | | | ng/mL or [...] performed at | | | | | [facility];[address] [place] [address] | | | | | [facility];[place] [address] | | | + + + + + + + | Specimen | + + | Blood | + + + + + + + | Performing | Address | City/State/Zipcode | Phone Number | | Organization | | | | + + + + + | [facility] | [address] | [place] [address] | | + + + + + Cardiac Panel (10/17/2018 3:49 AM) + + + + + | Component | Value | Ref Range | Performed At | + + + + + | WBC | 6.63 | 3.80 - 11.00 K/uL | [facility] | + + + + + | RBC | 3.07 (L) | 3.70 - 5.10 M/uL | [facility] | + + + + + | HGB | 10.9 (L) | 11.3 - 15.5 g/dL | [facility] | + + + + + | HCT | 32.7 (L) | 34.0 - 46.0 % | [facility] | + + + + + | MCV | 106.7 (H) | 80.0 - 100.0 fl | [facility] | + + + + + | MCH | 35.6 (H) | 27.0 - 34.0 pg | [facility] | + + + + + | MCHC | 33.4 | 32.0 - 35.5 g/dL | [facility] | + + + + + | RDW SD | 56.4 (H) | 37 - 53 fl | [facility] | + + + + + | PLT | 158 | 150 - 400 K/uL | [facility] | + + + + + | MPV | 10.2 | fl | [facility] | + + + + + [...] 0.26 | 0.00 - 0.80 K/uL | [facility] [...] SLT | 3.5 - 4.9 mmol/L | [facility] | | | HEMOLYSIS | | | + + + + + | CHLORIDE | 104 | 99 - 109 mmol/L | [facility] | + + + + + | CO2 | 17 (L) | 23 - 32 mmol/L | [facility] | + + + + + | ANION GAP AGAP | 27 (H) | 5 - 20 mmol/L | [facility] | + + + + + | GLUCOSE | 91 | 65 - 99 mg/dL | [facility] | + + + + + [...] 4.0 | 3.6 - 5.0 g/dL | [facility] | + + + + + | GLOBULIN | 2.5 | 1.3 - 4.9 g/dL | [facility] | + + + + + | A/G | 1.6 | 1.0 - 2.4 | [facility] | + + + + + | TBIL | 0.6 | 0.1 - 1.5 mg/dL | [facility] | + + + + + | ALK PHOS | 85 | 35 - 115 U/L | [facility] | + + + + + | AST | 40 | 10 - 45 U/L | [facility] | + + + + + | ALT | 31 | 10 - 65 U/L | [facility] | + + + + + | EGFR | 3 (L)Comment: GFR <60: | >60 mL/min/1.73m2 | [facility] | | | CHRONIC KIDNEY [...] | 30 - 240 U/L | [facility] | | | HEMOLYSIS | | | + + + + + | INR | 1.2Comment: REFERENCE | | [facility] | | | RANGE:0.9 - [...] | 23 - 32 seconds | [facility] | + + + + + | MMB | 17.8 (H) | 0.5 - 3.6 ng/mL | [facility] | + + + + + | CK-MB Index | UNABLE TO | | [facility] | | | CALCULATEComment: | | | | | Testing performed at | | | | | [facility];[address] | | | | | [address];[place] [address] | | | + + + + + + + + + + | Performing | Address | City/State/Zipcode | Phone Number | | Organization | | | | + + + + + | [facility] | [address] | [place] [address] | | + + + + + ED INFORMATION EXCHANGE (10/17/2018 1:10 AM) + + + | Narrative | Performed At | + + + | [id number] Criteria Met Care | ED | | Guidelines in 2 in 2 Security and Safety No | INFORMATION | | recent Security Events currently on file ED Care Guidelines There | EXCHANGE | | are currently no ED Care Guidelines for this patient. Please check | | | your facility's medical records system. Care History | | | Medical/Surgical 05/28/18 12:00 AM [facility] | | | PATIENT HAS AN APT WITH PCP DR NICHOLSON ON 09/11/18. | | | PATIENT CLINICAL EXERCISE PHYSIOLOGIST- DR [phone] Patient is | | | currently established with [facility]. If patient is seen in | | | the ED during business hours. Please contact [facility] at [facility] | | | [employer] Care Recommendation: This patient has had 5 [...] | | mo.) Facility Visits [facility] 4 0 | | | [facility] 12 0 Total 16 0 Note: [...] | or Chief Complaint Oct 17, 2018 [facility] | | | Emergency Oct 16, 2018 [facility] [place] | | | Emergency Chief Complaint: EXCESS FLUID Aug 20, [address] | | | [facility] [place] [place] Emergency Dependence on renal dialysis | | | Chronic kidney disease, unspecified Allergy status to | | | other drugs, medicaments and biological substances status | | | Chronic pulmonary edema Other termite inspector (current) drug therapy | | | Allergy status to narcotic agent status Dyspnea, | | | unspecified Radiographic dye allergy status Aug 13, 2018 | | | [facility] [place] [place] Emergency Allergy status to | | | other drugs, medicaments and biological substances status | | | Pleural effusion, not elsewhere classified End stage renal | | | disease Allergy status to narcotic agent status | | | Hyperkalemia Other specified abnormalities of plasma proteins | | | Other penitentiary (current) drug therapy Radiographic dye | | | allergy status Dependence on renal dialysis Chest pain, | | | unspecified Aug 13, 2018 [facility] | | | Emergency July 18, 2018 [facility] | | | Emergency Cough Pneumonia Hypoxemia | | | Pleural effusion, not elsewhere classified Fever, unspecified | | | Personal history of other diseases of urinary system May | | | 2018 [facility] [place] [place] Emergency Personal | | | history of nicotine dependence Other specified respiratory | | | disorders Cough Radiographic dye allergy status | | | Allergy status to narcotic agent status Chronic kidney disease, | | | unspecified Allergy status to other drugs, medicaments and | | | biological substances status Jun 19, 2018 [facility] | | | [place] Emergency Other chest pain End stage renal | | | disease Dependence on renal dialysis Personal history of | | | nicotine dependence Fluid overload, unspecified Heart | | | failure, unspecified care home (current) use of opiate | | | analgesic Allergy status to other drugs, medicaments and | | | biological substances status Radiographic dye allergy status | | | Other penitentiary (current) drug therapy Jun 12, 2018 [facility] | | | [facility] [place] [place] Emergency Shortness of breath | | | Fluid overload, unspecified Hyperkalemia Radiographic | | | dye allergy status Allergy status to narcotic agent status | | | Other termite inspector (current) drug therapy Allergy status to | | | other drugs, medicaments and biological substances status | | | Unspecified asthma, uncomplicated Dependence on renal dialysis | | | Chronic kidney disease, unspecified Jun 11, [address] | | | [facility] [place] Emergency Chronic pulmonary edema | | | Shortness of breath Radiographic dye allergy status | | | Personal history of nicotine dependence Other penitentiary | | | (current) drug therapy care home (current) use of opiate | | | analgesic Recent Inpatient Visit Summary Date Facility | | | [facility] State Type Diagnoses or Chief Complaint Aug 20, 2018 [facility] | | | [facility] General Medicine Pleural Effusion | | | Chronic pulmonary edema July 18, 2018 [facility] | | | [facility] General Medicine Hypoxemia Personal history | | | of other diseases of urinary system Fever, unspecified | | | Pleural effusion, not elsewhere classified End stage renal | | | disease Dependence on renal dialysis Anemia in chronic | | | kidney disease Pulmonary hypertension, unspecified | | | Chronic right heart failure May 26, 2018 [facility] | | | [facility] General Medicine Acute respiratory distress | [...] 28, | | | 2019 - Current Collective Portal This patient has registered | | | at the [facility] Emergency Department For more | | | information visit: | | | [email or web address] | | | [email or web address] PLEASE NOTE: 1. [...] | | completeness of information provided. 2019 [employer] | | | [employer] - [email or web address] | | + + + + + | Procedure Note | + + | Interface, Lab - 10/17/2018 1:12 AM PDT Formatting of this note may be different | | from the original.[id number] Met Care Guidelines 10 in | | 12 2 in 2Security and SafetyNo recent Security Events currently on fileED Care | | GuidelinesThere are currently no ED Care Guidelines for this patient. Please check your | | facility's medical records system.Care HistoryMedical/Surgical05/28/18 12:00 AM [facility]. | [facility] PATIENT HAS AN APT WITH PCP DR NICHOLSON ON 09/11/18. PATIENT | | CLINICAL EXERCISE PHYSIOLOGIST- DR [phone] Patient is currently established with | [facility]. If patient is seen in the ED during business hours. Please contact [facility] | | at [facility].Care Recommendation:This patient has had 5 or [...] Visit Count (12 mo.)Facility Visits Low Acuity [facility] | | Center 4 0 [facility] 12 0 Total 16 0 Note: [...] Chief | | [facility] [address] [facility] [address] | | [place] Emergency Chief Complaint: EXCESS FLUID Aug 20, [address] [facility] | | [place] Emergency Dependence on renal dialysis Chronic kidney | | disease, unspecified Allergy status to other drugs, medicaments and biological | | substances status Chronic pulmonary edema Other termite inspector (current) drug therapy | | Allergy status to narcotic agent status Dyspnea, unspecified Radiographic dye | | allergy status Aug 13, 2018 [facility] [place] Emergency Allergy status to [...] dialysis Chest pain, unspecified Aug 13, 2018 [facility] | | Emergency July 18, 2018 [facility] Emergency Cough Pneumonia | | Hypoxemia Pleural effusion, not elsewhere classified Fever, unspecified | | Personal history of other diseases of urinary system July 18, 2018 [facility] | | [place] Emergency Personal history [...] overload, unspecified | | Heart failure, unspecified ad terminal makeup operator (current) use of opiate analgesic Allergy | | status to other drugs, medicaments and biological substances status Radiographic dye | | allergy status Other penitentiary (current) drug therapy Jun 12, 2018 [facility] [place] | | [place] Emergency Shortness of breath Fluid overload, unspecified | | Hyperkalemia Radiographic dye allergy status Allergy status to narcotic agent | | status Other termite inspector (current) drug therapy Allergy status to other [...] long | | term (current) 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 ad terminal makeup operator (current) use of opiate analgesic Recent | | Inpatient Visit SummaryDate Facility City State Type Diagnoses or Chief Complaint Nigel | | [facility] Pleural Effusion Chronic | | pulmonary edema [facility] | | Hypoxemia Personal history of other diseases of urinary system Fever, unspecified | | Pleural effusion, not elsewhere classified End stage renal disease Dependence | | on renal dialysis Anemia in chronic kidney disease Pulmonary hypertension, | | unspecified Chronic right heart failure May 26, 2018 [facility] Acute respiratory distress Chest pain, unspecified Pleural | | effusion, not elsewhere classified Other ascites Dependence on renal dialysis | | Hyperkalemia Other disorders of phosphorus metabolism End stage renal disease | | Other specified personal risk factors, not elsewhere classified Acute systolic | | (congestive) heart failure Care TeamProvider ROBERTS [place] Type Phone Fax Service Dates BHARAT, | | TIEN Gallagher MD Internal Medicine May 28, 2018 - Current [facility] | | has registered at the [facility] Emergency Department For more | | information visit: | | [email or web address] PLEASE | | NOTE: 1. Any care [...] or completeness of information | | provided.2019 [employer]. - www.HealthUnity | | Personal history of other diseases of urinary system | | | |July 18, [address] [facility] [place] Emergency | | Personal history of nicotine dependence | | Other specified respiratory disorders | | Cough | | Radiographic dye allergy status | | Allergy status to narcotic agent status | | Chronic kidney disease, unspecified | | Allergy status to other drugs, medicaments and biological substances status | | | |Jun 19, [address] [facility] [place] Emergency | | Other chest pain | | End stage renal disease | | Dependence on renal dialysis | | Personal history of nicotine dependence | | Fluid overload, unspecified | | Heart failure, unspecified | | care home (current) use of opiate analgesic | | Allergy status to other drugs, medicaments and biological substances status | | Radiographic dye allergy status | | Other termite inspector (current) drug therapy | | | |Jun 12, [address] [facility] [place] Emergency | | Shortness of breath | | Fluid overload, unspecified | | Hyperkalemia | | Radiographic dye allergy status | | Allergy status to narcotic agent status | | Other penitentiary (current) drug therapy | | Allergy status to other drugs, medicaments and biological substances status | | Unspecified asthma, uncomplicated | | Dependence on renal dialysis | | Chronic kidney disease, unspecified | | | |Jun 11, [address] [facility] 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) use of opiate analgesic | | | | | | | |Recent Inpatient Visit Summary | |Date Facility City State Type Diagnoses or Chief Complaint | |Aug 20, 2018 [facility] | | Pleural Effusion | | Chronic pulmonary edema | | | |July 18, 2018 [facility] | | Hypoxemia | | Personal history of other diseases of urinary system | | Fever, unspecified | | Pleural effusion, not elsewhere classified | | End stage renal disease | | Dependence on renal dialysis | | Anemia in chronic kidney disease | | Pulmonary hypertension, unspecified | | Chronic right heart failure | | | |May 26, 2018 [facility] General Medicine | | Acute respiratory [...] 28, 2018 - Current | | | |[facility] Portal | |This patient has registered at the [facility] Emergency Department | |For more information visit: [email or web address] | |PLEASE NOTE: | | 1. Any [...] of information provided. | | | |2019 Cloud Direct. - www.HealthUnity | + + + +---------+ + + [...] heart failure | + + | HSP (Andreaoch Schernestolein purpura) | + + | Allergic purpura [...] | | | Pain (1-3), Fever, Starting Mon | | | 10/17/18 at 0653 | [...] | | mg 1 mg, Intravenous, Once, Wed | | 9 05:25 | | | [...] | | | Nightly, First dose on Wed | | PDT | | | [...] PDT | | | | | Starting Mon10/17/18 at 0653 | | | | | [...] | | | | | non-resposive to zofran, Starting | | | | | | | Mon10/17/18 at 0653 | | | | | [...] | PDT | | | | | Mon10/17/18 at 0800 | | | | | [...] PRN, Prevent | | | clotting, Starting 10/17/18 at | | | 0957 | | + +---+ | | | + +---+ + +-------+ +-------+---+---+ | valsartan (DIOVAN) tablet 80 mg | Given | | 80 mg | | | | 80 mg, Oral, Daily, First dose | | 9 16:16 | | | | | on 10/17/18 at 0900 | | PDT | | [...]
--- OUTSIDE RECORDS SUMMARY | ~2018-12-09 | XMS | Encounter Summary ---
Demographics + + + | Address | [address] | | | [place] [address] | + + + | Home Phone [...] | | | | | [place] [address] | | + + + + + | Thania Mallory | ECON | [address] | | | | | [place] [address] | | + + + + + | Deidra Weldon | ECON | [address] | | | | | [place] | | | | | [address] | | + + + + + Care Team Providers + +------+ + | Care Title Department Manager Name | Role | Phone | [...] + + | 01/21/ | Documentati | Transplant | AsafKelsi th[place], | Transplant Form | | 2015 | on | [address]ordinators [address] | RN [address] | Update | | | | ANNALISA Hoffmann [facility] | [facility] | | | | | Rd [place], [place] | [place], [place] | | | | | [address] | [address] | | | | | [phone] | | | +--------+ + + + [...] Denise | | | | | | [place], [place] | | | | | | [address] | | | | | | [phone] | | | | | | | | +--------+ + + + + documented as of this encounter Visit Diagnoses Not on filedocumented in this encounter"
--- OUTSIDE RECORDS SUMMARY | ~2018-12-09 | XMS | Encounter Summary ---
Demographics + + + | Address | [address] | | | [place] [address] | + + + | Home Phone [...] | | | | | [place] [address] | | + + + + + | Thania Mallory | ECON | [address] | | | | | [place] [address] | | + + + + + | Deidra Weldon | ECON | [address] | | | | | [place] | | | | | [address] | | + + + + + Care Team Providers + +------+ + | Care Rolling Mill Plugger Name | Role | Phone | + [...] Transplant | | | | [address] [facility] [facility] | [address] | Evaluation | | | | Rd [place], [place] | [place], [place] | (pre-listing | | | | [address] | [address] | pediatric [place] | | | | [phone] | | update) | +--------+ + + [...] Denise | | | | | | [place] | | | | | | [address] | | | | | | [phone] | | | | | | | | +--------+ + + + + documented as of this encounter Visit Diagnoses Not on filedocumented in this encounter"
--- OUTSIDE RECORDS SUMMARY | ~2018-12-09 | XMS | Encounter Summary ---
Demographics + + + | Address | [address] | | | [place] [address] | + + + | Home Phone [...] | | | | | [place] [address] | | + + + + + | Thania Mallory | ECON | [address] | | | | | [place] [address] | | + + + + + | Deidra Weldon | ECON | [address] | | | | | [place] | | | | | [address] | | + + + + + Care Team Providers + +------+ + | Care Fire Behavior Analyst Name | Role | Phone | [...] | | | | | ANNALISA Hoffmann [facility] | [facility] | | | | | Rd [place], [place] | [place], [place] | | | | | [address] | [address] | | | | | [phone] | | | +--------+ + + + [...] Denise | | | | | | [place] | | | | | | [address] | | | | | | [phone] | | | | | | | | +--------+ + + + + documented as of this encounter Visit Diagnoses Not on filedocumented in this encounter"
--- OUTSIDE RECORDS SUMMARY | ~2018-12-09 | XMS | Encounter Summary ---
Demographics + + + | Address | [address] | | | [place] [address] | + + + | Home Phone [...] | | | | | [place] [address] | | + + + + + | Thania Mallory | ECON | [address] | | | | | [place] [address] | | + + + + + | Deidra Weldon | ECON | [address] | | | | | [place] | | | | | [address] | | + + + + + Care Team Providers + +------+ + | Care Diabetes Solutions Specialist Name | Role | Phone | [...] 2012 | on | Coordinators [address] | [place], [place] | | | | | ANNALISA Hoffmann [facility] | [address] | | | | | Rd [place], [place] | | | | | | [address] | | | | | | [phone] | | | +--------+ + + + [...] [place] | | | | | | [address] | | | | | | [phone] | | | | | | | | +--------+ + + + + documented as of this encounter Visit Diagnoses Not on filedocumented in this encounter"
--- OUTSIDE RECORDS SUMMARY | ~2018-12-09 | XMS | Encounter Summary ---
Demographics + + + | Address | [address] | | | [place] [address] | + + + | Home Phone [...] | | | | | [place] [address] | | + + + + + | Thania Mallory | ECON | [address] | | | | | [place] [address] | | + + + + + | Deidra Weldon | ECON | [address] | | | | | [place] | | | | | [address] | | + + + + + Care Team Providers + +------+ + | Care Journeyman Meat Cutter Name | Role | Phone | + +------+ + | Shaihd Camargo MD | PCP | Unavailable | [...] renal | [address] | [address] | | | | | disease | [address] | [address] | | | | | (HCC) | [place] | [place], | | | | | Allergic | [place], [place] | [place] | | | | | purpura | [address] | [address] | | | | | (HCC) | Phone: | Phone: | | | | | | [phone] | [phone] | | | | | | Fax: | Fax: | | | | | | [phone] | [phone] | +--------+--------+ + + + + Encounter Details +--------+---------+ + + + | Date | Type | Department | Care Team | Description | +--------+---------+ + + + | 12/19/ | Office | Kidney Transplant | Clinic, [place] [address] | Patient on | | 2012 | Visit | at Physician[facility] | [address] | peritoneal dialysis | | | | Pavilion [address] | [address] [place], [place] | (HCC) (Primary Dx); | | | | [address] | [address] | Unspecified | | | | Mailcode: L590 | | essential | | | | [facility] | | hypertension; HSP | | | | [place], [place] | | ([place] | | | | [address]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; | | | | [phone] | | Obesity (BMI | | | [...] on file Social History Narrative Lives in [place], [place] with father and step-mother; 2 dogs; [...] Transplant Selection Confer ence. El Starr MD advertising sales associate, Division of Abdominal Organ Transplantation Professor of Urology CC: Sudhakar Joy MD [address] [place] [address] documented in this encoun ter Plan of Treatment +--------+ + + + + | Date | Type | Specialty | Care Team | Description | +--------+ + + + + | 05/04/ | Hospital | Adult Acute Care | El Starr MD | | | 2022 | Encounter | | [address] | | | | | | [place], [place] | | | | | | [address] | | | | | | [phone] | | | | | | | [...]
--- OUTSIDE RECORDS SUMMARY | ~2018-12-09 | XMS | Encounter Summary ---
Demographics + + + | Address | [address] | | | [place] [address] | + + + | Home Phone [...] | | | | | [place] [address] | | + + + + + | Thania Mallory | ECON | [address] | | | | | [place] [address] | | + + + + + | Deidra Weldon | ECON | [address] | | | | | [place] | | | | | [address] | | + + + + + Care Team Providers + +------+ + | Care Director Of Hospitality Name | Role | Phone | + +------+ + | Shahid Camargo MD | PCP | Unavailable | + +------+ + Encounter Details +--------+ + + + + | Date | Type | Department | Care Team | Description | +--------+ + + + + | 12/19/ | Document-Sc | UNKNOWN DEPARTMENT | Unknown . | | | 2012 | anned | [address] [facility] | | | | | | [address] | | | | | | [place], [place] | | | | | | [address] | | | +--------+ + + + [...] Denise | | | | | | [place], [place] | | | | | | [address] | | | | | | [phone] | | | | | | | | +--------+ + + + + documented as of this encounter Visit Diagnoses Not on filedocumented in this encounter"
--- OUTSIDE RECORDS SUMMARY | ~2018-12-09 | XMS | Encounter Summary ---
Demographics + + + | Address | [address] | | | [place] [address] | + + + | Home Phone [...] | | | | | [place] [address] | | + + + + + | Thania Mallory | ECON | [address] | | | | | [place] [address] | | + + + + + | Deidra Weldon | ECON | [address] | | | | | [place] | | | | | [address] | | + + + + + Care Team Providers + +------+ + | Care Technology Analyst Name | Role | Phone | [...] Hoffmann | | | | | ANNALISA [facility] | [facility] | | | | | Rd [place], [place] | [place], [place] | | | | | [address] | [address] | | | | | [phone] | | | +--------+ + + + [...] Denise | | | | | | [place] | | | | | | [address] | | | | | | [phone] | | | | | | | | +--------+ + + + + documented as of this encounter Visit Diagnoses Not on filedocumented in this encounter"
--- OUTSIDE RECORDS SUMMARY | ~2018-12-09 | XMS | Encounter Summary ---
Demographics + + + | Address | [address] | | | [place] [address] | + + + | Home Phone [...] | | | | | [place] [address] | | + + + + + | Thania Mallory | ECON | [address] | | | | | [place] [address] | | + + + + + | Deidra Weldon | ECON | [address] | | | | | [place] | | | | | [address] | | + + + + + Care Team Providers + +------+ + | Care Property Disposal Officer Name | Role | Phone | [...] [place] | | | | | | [address] | | | | | | [phone] | | | | | | | | +--------+ + + + + documented as of this encounter Visit Diagnoses Not on filedocumented in this encounter"
--- OUTSIDE RECORDS SUMMARY | ~2018-12-09 | XMS | Encounter Summary ---
Demographics + + + | Address | [address] | | | [place] [address] | + + + | Home Phone [...] | | | | | [place] [address] | | + + + + + | Thania Mallory | ECON | [address] | | | | | [place] [address] | | + + + + + | Deidra Weldon | ECON | [address] | | | | | [place] | | | | | [address] | | + + + + + Care Team Providers + +------+ + | Care Behavior Analyst Name | Role | Phone [...] | | | | | Caro [place], | | | | | | [place] [address] | | | +--------+ + + + [...] Denise | | | | | | [place], [place] | | | | | | [address] | | | | | | [phone] | | | | | | | [...] DANILO - | [address], | [place] [address] | | | IMMUNOGENETICS/TRANS | [address] | | | | PLANT LABORATORY | | | | + + + + + documented in this encounter Visit Diagnoses Not on filedocumented in this encounter"
--- OUTSIDE RECORDS SUMMARY | ~2018-12-09 | XMS | Encounter Summary ---
Demographics + + + | Address | [address] | | | [place] [address] | + + + | Home Phone [...] | | | | | [place] [address] | | + + + + + | Thania Mallory | ECON | [address] | | | | | [place] [address] | | + + + + + | Deidra Weldon | ECON | [address] | | | | | [place] | | | | | [address] | | + + + + + Care Team Providers + +------+ + | Care Director Of Women'S Services Name | Role | Phone | [...] | list) | | | | [address] [facility] | [facility] | | | | | Rd [place], [place] | [place], [place] | | | | | [address] | [address] | | | | | [phone] | | | +--------+ + + + [...] Denise | | | | | | [place], [place] | | | | | | [address] | | | | | | [phone] | | | | | | | | +--------+ + + + + documented as of this encounter Visit Diagnoses Not on filedocumented in this encounter"
--- OUTSIDE RECORDS SUMMARY | ~2018-12-09 | XMS | Encounter Summary ---
Demographics + + + | Address | [address] | | | [place] [address] | + + + | Home Phone [...] | | | | | [place] [address] | | + + + + + | Thania Mallory | ECON | [address] | | | | | [place] [address] | | + + + + + | Deidra Weldon | ECON | [address] | | | | | [place] | | | | | [address] | | + + + + + Care Team Providers + +------+ + | Care Analog Ic Design Architect Name | Role | Phone | [...] Shun | | | | | [address] | [facility] | | | | | [place], [place] | [place] [address] | | | | | [address] | [phone] | | | | | | | [...] Denise | | | | | | [place], [place] | | | | | | [address] | | | | | | [phone] | | | | | | | | +--------+ + + + + documented as of this encounter Visit Diagnoses Not on filedocumented in this encounter"
--- OUTSIDE RECORDS SUMMARY | ~2018-12-09 | XMS | Encounter Summary ---
Demographics + + + | Address | [address] | | | [place] [address] | + + + | Home Phone [...] | | | | | [place] [address] | | + + + + + | Thania Mallory | ECON | [address] | | | | | [place] [address] | | + + + + + | Deidra Weldon | ECON | [address] | | | | | [place] | | | | | [address] | | + + + + + Care Team Providers + +------+ + | Care Aix System Administrator Name | Role | Phone | [...] | Requested | | | | [address] [facility] | [facility] | | | | | Rd [place], [place] | [place], [place] | | | | | [address] | [address] | | | | | [phone] | | | +--------+ + + + [...] [place] | | | | | | [address] | | | | | | [phone] | | | | | | | | +--------+ + + + + documented as of this encounter Visit Diagnoses Not on filedocumented in this encounter"
--- OUTSIDE RECORDS SUMMARY | ~2018-12-09 | XMS | Encounter Summary ---
Demographics + + + | Address | [address] | | | [place] [address] | + + + | Home Phone [...] | | | | | [place] [address] | | + + + + + | Thania Mallory | ECON | [address] | | | | | [place] [address] | | + + + + + | Deidra Weldon | ECON | [address] | | | | | [place] | | | | | [address] | | + + + + + Care Team Providers + +------+ + | Care Business Controller Name | Role | Phone | [...] | Update | | | | [address] [facility] | [facility] | | | | | Rd [place], [place] | [place], [place] | | | | | [address] | [address] | | | | | [phone] | | | +--------+ + + + [...] | | | | | | [place] | | | | | | [address] | | | | | | [phone] | | | | | | | | +--------+ + + + + documented as of this encounter Visit Diagnoses Not on filedocumented in this encounter"
--- OUTSIDE RECORDS SUMMARY | ~2018-12-09 | XMS | Encounter Summary ---
Demographics + + + | Address | [address] | | | [place] [address] | + + + | Home Phone [...] Author | [facility] | | | and Josephana | + + + | Organization | [facility] | [...] Team Providers + +------+ + | Care Java J2Ee Lead Name | Role | Phone | [...] + + | 11/15/ | Telephone | [facility] | George Torres RN | Lab Results | | 2019 | | [address] | | (Cytology report) | | | | [place] | | | | | | [address] | | | | | | [phone] | | | +--------+ + + + [...] | | | | | [place] [address] | | | | | | [phone] | | | | | | | | +--------+---------+ + + + documented as of this encounter Visit Diagnoses Not on filedocumented in this encounter"
--- OUTSIDE RECORDS SUMMARY | ~2018-12-09 | XMS | Encounter Summary ---
Demographics + + + | Address | [address] | | | [place] [address] | + + + | Home Phone [...] | | | | | [place] [address] | | + + + + + | Thania Mallory | ECON | [address] | | | | | [place] [address] | | + + + + + | Deidra Weldon | ECON | [address] | | | | | [place] | | | | | [address] | | + + + + + Care Team Providers + +------+ + | Care Automotive Sales Associate Name | Role | Phone [...] | | | [place], | [place] [address] | | | | | [place] [address] | [phone] | | | | | | | [...] Denise | | | | | | [place], [place] | | | | | | [address] | | | | | | [phone] | | | | | | | [...] [facility] - | [address] | [place] [address] | | | IMMUNOGENETICS/TRANS | [address] | | | | PLANT LABORATORY | | | | + + + + + documented in this encounter Visit Diagnoses Not on filedocumented in this encounter"
--- OUTSIDE RECORDS SUMMARY | ~2018-12-09 | XMS | Encounter Summary ---
Demographics + + + | Address | [address] | | | [place] [address] | + + + | Home Phone [...] | | | | | [place] [address] | | + + + + + | Thania Mallory | ECON | [address] | | | | | [place] [address] | | + + + + + | Deidra Weldon | ECON | [address] | | | | | [place] | | | | | [address] | | + + + + + Care Team Providers + +------+ + | Care Steersman Name | Role | Phone | + +------+ + | Shahid Camargo MD | PCP | Unavailable | + +------+ + Encounter Details +--------+------+ + + + | Date | Type | Department | Care Team | Description | +--------+------+ + + + | 12/20/ | Lab | [facility] at [facility] | | Allergic purpura- | | 2012 | | 7th Floor [address] | | MEDICARE [address] | | | | [address] | | (Primary Dx) | | | | [place], [place] | | | | | | [address] | | | | | | [phone] | | | +--------+------+ + + + [...] Denise | | | | | | [place], [place] | | | | | | [address] | | | | | | [phone] | | | | | | | [...] - | [address] | [place], [place] | | | IMMUNOGENETICS/TRANS | Suite [...] - | [address] | [place], [place] | | | IMMUNOGENETICS/TRANS | Suite [...] + + | [facility] - | [address] | [place] [address] | | | IMMUNOGENETICS/TRANS | [address] [...] [facility] - | [address] | [place] [address] | | | IMMUNOGENETICS/TRANS | [address] [...] + | [facility] - | [address] | [place] [address] | | | IMMUNOGENETICS/TRANS | [address] | | | | [facility] | | | | + + + + + LIT HLA-A WILEY RES-EVA (12/20/2012 10:02 AM PDT) + + | Specimen | + + | Blood - Blood | + + + + + + + | Performing | Address | City/State/Zipcode | Phone Number | | Organization | | | | + + + + + | [facility] - | [address] | [place], [place] | | | IMMUNOGENETICS/TRANS | Suite [...] [facility] - | [address] | [place], [place] | | | IMMUNOGENETICS/TRANS | [address] [...] [facility] - | [address] | [place] [address] | | | IMMUNOGENETICS/TRANS | [address] [...] [facility] - | [address] | [place] [address] | | | IMMUNOGENETICS/TRANS | [address] [...] | + + + + + | [facility] | [address] | [place] [address] | | | SERVICES, | [address] [...] [facility] | [address] | [place] [address] | | | SERVICES, | [address] [...] | + + + + + | [facility] | [address] | [place] [address] | | | SERVICES, CORE | PARK [...] [facility] | | | , SERUM | [facility],[address] | | REG UNIV | | | | Pippa [place], [facility] [place] | | PTH - INTFC | | | | [address] | | | | | | [phone]. | | | | | | Faisal [...] [facility] | [address] | [place], [place] | | | UNIV PTH - INTFC | | [address] | | + + + + + [...] units and pediatric reference ranges effective | [facility] | | 07/25/2012. | LABORATORY | | | [place] | + + + + + + + + | Performing | Address | City/State/Zipcode | Phone Number | | Organization | | | | + + + + + | [facility] | [address] | [place] [address] | | | SERVICES, HOMERO | PARK [...] | + + + + + | [facility] | [address] | [place] [address] | | | SERVICES, CORE | PARK [...] + | [facility] - | [address] | [place] [address] | | | [place] | | | [...] + + + + | NON-SQUAMOU | Jennifer (A) | None /hpf | [...] [facility] | [address] | [place] [address] | | | SERVICES, CORE | PARK [...] [facility] | [address] | [place] [address] | | | SERVICES, CORE | PARK [...] | + + + + + | [facility] | [address] | [place] [address] | | | SERVICES, CORE | PARK [...] - | | | | | | [place] | | + + + + + + + + | Specimen | + + | Blood - Blood | + + + + + + + | Performing | Address | City/State/Zipcode | Phone Number | | Organization | | | | + + + + + | [facility] | [address] | [place] [address] | | | [place] | | | [...] | | | at: | | | http://www.cdc.gov/nchstp/tb/pubs/tbfactssheets/653692.htm | | | Test performed by: [facility] | | | Public [facility] [address] Jac[address] [place] [address] | | | | | + + [...] [facility] | [address] | [place] [address] | | | SERVICES, SPECIAL | PARK [...] gene at | DIAGNOSTIC | | nucleotide 86131. Please note that this assay only detects the | LABORATORIES | | [id number] point mutation and therefore a normal result [...] has been analyzed for the presence of [id number] | | | mutation in the prothrombin [...] | above. Heterozygotes for the common prothrombin E14308R mutation | | | constitute approximately 2% of the normal white population (1,2). | | | References: 1.) Edwinat et al. Blood 88, 4419-8163 (1995). 2.) Ricardo | | | et al. Circulation 99, 999-1004 (1998). 3.) Al Montalvo, and | | | Press. Amer J Clin Path 155, 439-47 (2001). This test was | | | developed and its performance characteristics determined by the [facility] | | | [facility]. It has | | | not been cleared or approved by the Food and Drug | | | Administration. FDA approval is not required for clinical use of | | | this test, and therefore validation was done as required under the | | | requirements of the Clinical Laboratory Improvement Act of | | | 1988. The [facility] Diagnostic | | | Center is a fully licensed and/or accredited clinical laboratory under | | | CLIA, [facility], and the State [facility]. Please note that our lab now | [...] + + | Performing | Address | City/State/[facility] Cent[facility]ode | Phone Number | | Organization | | | | + + + + + | [facility] | [address] | [place] [address] | | | DIAGNOSTIC | [address] [...] HOSPITAL LABORATORY | [address] | [place] [address] | | | SERVICES, CORE | PARK [...] | + + + + + | [facility] | [address] | [place] [address] | | | SERVICES, CORE | PARK [...] [facility] | [address] | [place] [address] | | | SERVICES, CORE | LONG [...] ranges for full anticoagulation: INR for | [facility] | | Venous Thromboembolism (2.0 - 3.0) INR INR | LABORATORY | | for most patients with mech. valves (2.5 - 3.5) INR | SERVICES[facility]OM[facility] | + + + + + + + + | Performing | Address | City/State/Zipcode | Phone Number | | Organization | | | | + + + + + | [facility] | [address] | [place] [address] | | | SERVICES, HOMERO | LONG [...] | | | | | | [place] [address] | | | | | | [phone]. | | | | | | Faisal [...] [facility] | [address] | [place], [place] | | | UNIV PTH - INTFC | | [address] | | + + + + + [...] | + + + + + | [email or web address] | [address] | [place] [address] | | | SERVICES, SPECIAL | PARK [...] + + + + | [facility] | [address] | [place] [address] | | | DIAGNOSTIC | [address] [...] + | [facility] - | [address] | [place] [address] | | | [place] | | | [...] + | [facility] - | [address] | [place] [address] | | | [place] | | | [...] + | [facility] - | [address] | [place] [address] | | | [place] | | | | + + + [...] + | [facility] - | [address] | [place] [address] | | | [place] | | | [...] less......Not | | | | | | Ngrnzyqo62.0-21.9 | | | | | | U/mL.........Indetermina [...] available | | | | | | [email or web address] | | | | | | vdx.Performed by [facility] | | | | | | Laboratories,[address] | | | | | | Rajendra, [facility] [place] [address] | | | | | | [phone]. | | | | | | Faisal mantilla, | | | | | | Lab. JUAN PABLO Director | | | | + + + + + + + + | Specimen | + + | Blood - Blood | + + + + + + + | Performing | Address | City/State/Zipcode | Phone Number | | Organization | | | | + + + + + | [facility] | [address] | [place], [place] | | | UNIV PTH - INTFC | | [address] | | + + + + + [...] + | [facility] - | [address] | [place] [address] | | | [place] | | | | + + + [...] [facility] | [address] | [place] [address] | | | SERVICES, CORE | LONG [...] by | | | | | | Site Lock,[address] | | | | | | Pippa Sau[place]a, [facility] [place] | | | | | | [address] | | | | | | [phone].[employer] Business Plan. | | | | | | Faisal [...] [facility] | [address] | [place], [place] | | | UNIV PTH - INTFC | | [address] | | + + + + + CHOLESTEROL TOTAL, PLASMA (12/20/2012 8:39 AM PDT) + +-------+ + + + | Component | Value | Ref Range | Performed | Pathologist | | | | | At | Signature | + +-------+ + + + | CHOLESTEROL | 195 | <200 mg/dL | [facility] | | | (LAB) | | | [...] | + + + + + | [email or web address] | [address] | [place] [address] | | | SERVICES, CORE | PARK [...] [facility] | [address] | [place] [address] | | | SERVICES, CORE | PARK [...] [facility] | [address] | [place] [address] | | | SERVICES, CORE | [address] | | | + + + + + documented in this encounter Visit Diagnoses + + | Diagnosis | + + | 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
--- OUTSIDE RECORDS SUMMARY | ~2018-12-09 | XMS | Encounter Summary ---
Demographics + + + | Address | [address] | | | [place] [address] | + + + | Home Phone [...] | | | | | [place] [address] | | + + + + + | Thania Mallory | ECON | [address] | | | | | [place] [address] | | + + + + + | Deidra Weldon | ECON | [address] | | | | | [place] | | | | | [address] | | + + + + + Care Team Providers + +------+ + | Care Brine Room Laborer Name | Role | Phone | [...] | | | | | [address] [facility] | [facility] | | | | | Rd [place], [place] | [place], [place] | | | | | [address] | [address] | | | | | [phone] | | | +--------+ + + + [...] [place] | | | | | | [address] | | | | | | [phone] | | | | | | | | +--------+ + + + + documented as of this encounter Visit Diagnoses Not on filedocumented in this encounter"
--- OUTSIDE RECORDS SUMMARY | ~2018-12-09 | XMS | Encounter Summary ---
Demographics + + + | Address | [address] | | | [place] [address] | + + + | Home Phone [...] | | | | | [place] [address] | | + + + + + | Thania Mallory | ECON | [address] | | | | | [place] [address] | | + + + + + | Deidra Weldon | ECON | [address] | | | | | [place] | | | | | [address] | | + + + + + Care Team Providers + +------+ + | Care Spool Sorter Name | Role | Phone | + [...] | Update | | | | [address] [facility] | [facility] | | | | | Rd [place], [place] | [place], [place] | | | | | [address] | [address] | | | | | [phone] | | | +--------+ + + + [...] | | | | | | [place] | | | | | | [address] | | | | | | [phone] | | | | | | | | +--------+ + + + + documented as of this encounter Visit Diagnoses Not on filedocumented in this encounter"
--- OUTSIDE RECORDS SUMMARY | ~2018-12-09 | XMS | Encounter Summary ---
Demographics + + + | Address | [address] | | | [place] [address] | + + + | Home Phone [...] | | | | | [place] [address] | | + + + + + | Thania Mallory | ECON | [address] | | | | | [place] [address] | | + + + + + | Deidra Weldon | ECON | [address] | | | | | [place] | | | | | [address] | | + + + + + Care Team Providers + +------+ + | Care Lace Machine Operator Name | Role | Phone [...] form) | | | | ANNAL[address] [facility]mann [facility] | [facility] | | | | | Rd [place], [place] | [place], [place] | | | | | [address] | [address] | | | | | [phone] | | | +--------+ + + + [...] Denise | | | | | | [place] | | | | | | [address] | | | | | | [phone] | | | | | | | | +--------+ + + + + documented as of this encounter Visit Diagnoses Not on filedocumented in this encounter"
--- OUTSIDE RECORDS SUMMARY | ~2018-12-09 | XMS | Clinical Summary ---
Demographics + + + | Address | [address] | | | [place] [address] | + + + | Home Phone [...] | | | | | [place] [address] | | + + + + + | Thania Mallory | ECON | [address] | | | | | [place] [address] | | + + + + + | Deidra Weldon | ECON | [address] | | | | | [place], [place] | | | | | [address] | | + + + + + Care Team Providers + +------+ + | Care Sales Project Administrator Name | Role | Phone | + +------+ + | Jonathan Alonso MD | PCP | | + +------+ + Source Comments DANILO is fully live on both EpicCare Ambulatory and EpicCare InPatient.[facility] Allergies + + + + + [...] Denise | | | | | | [place], [place] | | | | | | [address] | | | | | | [phone] | | | | | | | [...] | | | | | | | [address] | | + +--------+ +--------+ + +--------+ | MANUFACTURING EXECUTIVE MEDICAID | MANUFACTURING EXECUTIVE | [id number] | Effect | | | [...] | RENAL | | for | | [place], | | | | RECIPI | | all | | [place] [address] | | | | ENT | | [...] | | al/Fam | | 1995 | [phone] | 3 [place] | | | kamron | | | 2 (Home) | [address] | | | | | | [phone] | | | | | | | 0 (Work) | | + +--------+ +--------+ + + | CORY ALVES | Wanderbhavin | Mother | [birth year] | [address] | | | l | | [address] | [phone] | 3 [place] | | | Gamal | | | 2 (Home) | [address] | | | g | | | | | + +--------+ +--------+ + +
--- OUTSIDE RECORDS SUMMARY | ~2018-12-09 | XMS | Encounter Summary ---
Demographics + + + | Address | [address] | | | [place] [address] | + + + | Home Phone [...] | | | | | [place] [address] | | + + + + + | Thania Mallory | ECON | [address] | | | | | [place] [address] | | + + + + + | Deidra Weldon | ECON | [address] | | | | | [place] | | | | | [address] | | + + + + + Care Team Providers + +------+ + | Care Baggage Porter Head Name | Role | Phone | [...] Update (Dialysis | | | | ANNALISA Hoffmann [facility] | [address] | unit updated) | | | | [place], [place] | [facility] [place] | | | | | [address] | [address] | | | | | [phone] | [phone] | | | | | | | [...] [place] | | | | | | [address] | | | | | | [phone] | | | | | | | | +--------+ + + + + documented as of this encounter Visit Diagnoses Not on filedocumented in this encounter"
--- OUTSIDE RECORDS SUMMARY | ~2018-12-09 | XMS | Encounter Summary ---
Demographics + + + | Address | [address] | | | [place] [address] | + + + | Home Phone [...] | | | | | [place] [address] | | + + + + + | Thania Mallory | ECON | [address] | | | | | [place] [address] | | + + + + + | Deidra Weldon | ECON | [address] | | | | | [place] | | | | | [address] | | + + + + + Care Team Providers + +------+ + | Care Manager Law Name | Role | Phone | + [...] Hoffmann | | | | | ANNALISA [facility] | [facility] | | | | | Rd [place], [place] | [place], [place] | | | | | [address] | [address] | | | | | [phone] | | | +--------+ + + + [...] Denise | | | | | | [place], [place] | | | | | | [address] | | | | | | [phone] | | | | | | | | +--------+ + + + + documented as of this encounter Visit Diagnoses Not on filedocumented in this encounter"
--- OUTSIDE RECORDS SUMMARY | ~2018-12-09 | XMS | Encounter Summary ---
Demographics + + + | Address | [address] | | | [place] [address] | + + + | Home Phone [...] | | | | | [place] [address] | | + + + + + | Thania Mallory | ECON | [address] | | | | | [place] [address] | | + + + + + | Deidra Weldon | ECON | [address] | | | | | [place] | | | | | [address] | | + + + + + Care Team Providers + +------+ + | Care Chef Teacher Name | Role | Phone | [...] | Coordinators [address] | RN [address] | | | | | [address]mann [facility] | [facility] | | | | | Rd [place], [place] | [place], [place] | | | | | [address] | [address] | | | | | [phone] | | | +--------+ + + + [...] Denise | | | | | | [place] | | | | | | [address] | | | | | | [phone] | | | | | | | | +--------+ + + + + documented as of this encounter Visit Diagnoses Not on filedocumented in this encounter"
--- OUTSIDE RECORDS SUMMARY | ~2018-12-09 | XMS | Encounter Summary ---
Demographics + + + | Address | [address] | | | [place] [address] | + + + | Home Phone [...] Author | [facility] | | | and Josephana | + + + | Organization | [facility] | | | and Josephana [...] Team Providers + +------+ + | Care Automobile Inspector Name | Role | Phone | [...] + + | 11/13/ | Telephone | [facility] | Silvia Rabago | DME (OXYGEN) | | 2019 | | [address] | | | | | [place] | | | | | | [address] | | | | | | [phone] | | | +--------+ + + + [...] | | | | | [place] [address] | | | | | | [phone] | | | | | | | | +--------+---------+ + + + documented as of this encounter Visit Diagnoses Not on filedocumented in this encounter"
--- OUTSIDE RECORDS SUMMARY | ~2018-12-09 | XMS | Encounter Summary ---
Demographics + + + | Address | [address] | | | [place] [address] | + + + | Home Phone [...] | | | | | [place] [address] | | + + + + + | Thania Mallory | ECON | [address] | | | | | [place] [address] | | + + + + + | Deidra Weldon | ECON | [address] | | | | | [place] | | | | | [address] | | + + + + + Care Team Providers + +------+ + | Care Qa Analyst Name | Role | Phone [...] | | | Caro Chan Mailcode: | [place], [place] | | | | | [address] | [address] | | | | | [address] | [phone] | | | | | [place], [place] | | | | | | [address] | | | | | | [phone] | | | +--------+ + + + [...] Denise | | | | | | [place], [place] | | | | | | [address] | | | | | | [phone] | | | | | | | | +--------+ + + + + documented as of this encounter Visit Diagnoses Not on filedocumented in this encounter"
--- OUTSIDE RECORDS SUMMARY | ~2018-12-09 | XMS | Encounter Summary ---
Demographics + + + | Address | [address] | | | [place] [address] | + + + | Home Phone [...] | | | | | [place] [address] | | + + + + + | Thania Mallory | ECON | [address] | | | | | [place] [address] | | + + + + + | Deidra Weldon | ECON | [address] | | | | | [place] | | | | | [address] | | + + + + + Care Team Providers + +------+ + | Care Him Coder Name | Role | Phone | [...] | ABO) | | | | ANNALISA [facility] | [facility] | | | | | Rd [place], [place] | [place], [place] | | | | | [address] | [address] | | | | | [phone] | | | +--------+ + + + [...] [place] | | | | | | [address] | | | | | | [phone] | | | | | | | [...] + + | [facility] - | [address] | [place] | [phone] | | [place] | | | | + + + + + documented in this encounter Visit Diagnoses Not on filedocumented in this encounter"
--- OUTSIDE RECORDS SUMMARY | ~2018-12-09 | XMS | Encounter Summary ---
Demographics + + + | Address | [address] | | | [place] [address] | + + + | Home Phone [...] | | | | | [place] [address] | | + + + + + | Thania Mallory | ECON | [address] | | | | | [place] [address] | | + + + + + | Deidra Weldon | ECON | [address] | | | | | [place] | | | | | [address] | | + + + + + Care Team Providers + +------+ + | Care Tool Programmer Name | Role | Phone | [...] | | | | | nlein | [place], [place] | Mailcode: | | | | | purpura) | [address] | DC7S | | | | | nephritis | Phone: | [place] | | | | | (HCC) | [phone] | [place], [place] | | | | | Hemodialysis | Fax: | [address] | | | | | status | [phone] | Phone: | | | | | (HCC) | | [phone] | | | | | Chronic | | Fax: | | | | | kidney | | [phone] | | | | | disease, | [...] | | 2014 | Encounter | at [facility] [address] | | | | | | [address] | | | | | | Mailcode: [id number] | | | | | | [place] | | | | | | [place], [place] | | | | | | [address] | | | | | | [phone] | | | +--------+ + + + [...] Denise | | | | | | [place], [place] | | | | | | [address] | | | | | | [phone] | | | | | | | [...] | e | 1:18 PM | MEDICARE 6149 [facility] | procedure are in the | [...] 2:35 PM PST Echocardiography Laboratory | | [address] | | [place] [address] | | ; | | [id number] | | | | Transthoracic Echocardiogram Report | | | | | | NAME: DARA WELDON Study Date: 01/20/2015 1:18:29 PM | | Order #: [id number] ACC #: [id number] | | | | | | : [...] on 01/20/2015 at 2:35:17 PM | | Color Technician: YARITZA KLINE [facility] | | | | | | cc: | | | | | | Modes utilized | | TTE 23684; Spectral Doppler 89841; Color flow Doppler 75748; | | | | | | | | Final | + + + + + + + | Performing | Address | City/State/Zipcode | Phone Number | | Organization | | | | + + + + + | [facility] | [address] | [place], [place] | | | CARDIOLOGY | [address] | [address] | | + + + + + [...]
--- OUTSIDE RECORDS SUMMARY | ~2018-12-09 | XMS | Encounter Summary ---
Demographics + + + | Address | [address] | | | [place] [address] | + + + | Home Phone [...] | | | | | [place] [address] | | + + + + + | Thania Mallory | ECON | [address] | | | | | [place] [address] | | + + + + + | Deidra Weldon | ECON | [address] | | | | | [place] | | | | | [address] | | + + + + + Care Team Providers + +------+ + | Care Activities Specialist Name | Role | Phone | [...] (psychosocial update | | | | Rd [place], [place] | [place], [place] | from pt's mom) | | | | [address] | [address] | | | | | [phone] | | | +--------+ + + + [...] | | | | | | [place] | | | | | | [address] | | | | | | [phone] | | | | | | | | +--------+ + + + + documented as of this encounter Visit Diagnoses Not on filedocumented in this encounter"
--- OUTSIDE RECORDS SUMMARY | ~2018-12-09 | XMS | Encounter Summary ---
Demographics + + + | Address | [address] | | | [place] [address] | + + + | Home Phone [...] | [facility] | | | and [place] | + + + | Organization | [facility] | [...] Providers + +------+ + | Care Administrative Office Clerk Name | Role | Phone | [...] + | 11/06/ | Hospital | [facility] | Johnathan Brooks, | Chronic right-sided | | 2019 - | Encounter | [facility] | MD Brooks TORRES | heart failure (HCC) | | | | CARE FLOOR [address] | [place] [address] | (Primary Dx); Acute | | 11/09/ | | [address] | [phone] | hypoxemic | | 2019 | | [place], [place] | | respiratory failure | | | | [address] | Darell Kowalski MD | (HCC); Chronic | | | | [phone] | [address]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 [facility] Service: Medicine DISCHARGE SUMMARY Primary Care Physician: [...] be evaluated at local emergency room at [facility]. In the ER patient was [...] the patient's paper documentation from [facility] ER). Initial labs: WBC 6.5, hemoglobin 11.0, [...] suggesting of edema. Taken from Dr. Brooks [facility] (11/06/2018) HOSPITAL COURSE Patient was admitted [...] Left; Surgeon: Blake Chavarria MD ; Location: [facility] MAIN OR AV FISTULA REPAIR Left 03/07/2014 Procedure: AV FISTULA - GRAFT REPAIR/REVISION; Surgeon: Rik Simon MD; Location: [facility] IN OR; Service: Vascular; Laterality: Left; biopsy of kidney age 10 DIALYSIS FISTULA CREATION 04/08/2014 Procedure: DIALYSIS CATHETER - INSERTION; Surgeon: Rik Simon MD; Location: [facility] MAIN OR ; [...] - SUPERFICIALIZATION; Surgeon: Emanuel Simon MD; Location: [facility] MAIN OR; Service: Vascular; Laterality: Left; OTHER SURGICAL HISTORY Left 04/08/2014 AV FISTULA PLACEMENT - Procedure: AV FISTULA; Surgeon: Rik Simon MD; Location: [facility] ENE N OR; Service: Vascular; Laterality: Left; cephalic OTHER SURGICAL HISTORY Left 03/07/2014 DECLOT GRAFT - Procedure: GRAFT - DECLOT; Surgeon: Rik Simon MD; Location: [facility] MAIN OR ; [...] Value Units Date/Time Culture, Body Fluid Sterile [[id number]] Collected: 11/07/18 1515 Order Status: Completed Lab Status: Preliminary result Updated: 11/09/18 141 Specimen: Body Fluid from Pleural Fluid, Right Special Requests RIGHT SIDE Special Requests Testing performed at [facility];[address] [place] [address] Gram Stain Result NO CELLS OR ORGANISMS SEEN RESULT NO GROWTH 2 DAYS RESULT Testing performed at [facility], [address] [place] [address] Comment: Testing performed at [facility], [address] [place] [address] Culture, Body Fluid Sterile [[id number]] Order Status: Canceled Lab Status: No result [...] DOMINGAVAN Follow Up: Jonathan Alonso MD [address] [place] [place] [address] In 1 week René Anguiano MD [address] [facility] [address] [place] [address] In 1 week Discharge took 60 minutes, [...] tablet by | 30 | 4 | // | | | (PLAVIX) 75 mg | [...] Progress Notes Daniela Vyas RN - 11/09/2018 1546 PDTPatient left private vehicle with her sister. DME equipment order sent to [facility]. She refused oxygen delivery to the hospi mary kate saying that she just wanted to go home. Orders state 1L for ambulating only.Electronical ly signed by Daniela Vyas RN at 11/09/2018 15:47 Anival Patten RRT - 11/09/2018 124 5 PDT 11/09/18 1244 [...] UF. Hypervolemia has improved with HD/UF/thoracentesis. Acute OH has been ruled out. Recommendations: Plan for [...] for continuity of chart review/care. Dictation software, DocDep, was used which may contain error for [...] care as of 8 PM tonight. efri Meek, Igor Rich dent - 11/08/2018 1305 PDT [facility] Inpatient Progress Note Pt: Dara Louise [...] hypervolemic and has recurrent hyperkalemia/metabolic acidosis. Acute OH has been ruled out. Recommendations: Plan for [...] for continuity of chart review/care. Dictation software, DocDep, was used which may contain error for [...] TID WC valsartan 40 mg Oral Daily efri Meek [facility] dent - 11/07/2018 0725 PDT [facility] Inpatient Progress Note Pt: Dara Louise AGE/SEX: 23 y.o. ROOM: [facility]/8112-01 : 1995 PCP: Jonathan Alonso MD PATIENT [...] The patient was seen at [facility] ER and then transferred to our internal [...] attestation - Darell Kowalski MD - 11/07/2018 1842 PDTAttending: Pt is seen and examined with [...] [address] | | | | | | [place] [address] | | | | | | [phone] | | | | | | | [...] + | Billie Gupta MD 11/09/2018 9:34 [facility] | | | [facility] Hemo-Dialysis Procedure note Pt is [...] | | . 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 Yarn Examiner 240 | | | Constitutional: pt appears [...] Testing | 2.3 - 4.8 mg/dL | [facility] | | | | performed at [facility], [address] | | LABORATORY | | | | [address], | | | | | | [place] [address] | | | | + + + + + + + + | Specimen | + + | Blood | + + + + + + + | Performing | Address | City/State/Zipcode | Phone Number | | Organization | | | | + + + + + | [facility] | [address] | [place] [address] | [phone] | + + + + + Comprehensive [...] 30 | 10 - 65 U/L | KR [...] | | | | | | MDRD IDNY traceable | | | | | | equation.Testing | | | | | | performed at [facility], [address] | | | | | | [facility], | | | | | | [place] [address] | | | | + + + + + + + + | Specimen | + + | Blood | + + + + + + + | Performing | Address | City/State/Zipcode | Phone Number | | Organization | | | | + + + + + | [facility] | [address] | [place] [address] | [phone] | + + + + + CBC with Differential (11/09/2018 4:14 PDT) + + + + + + | Component | Value | Ref Range | Performed | Pathologist | | | | | At | Signature | + + + + + + | WBC | 4.25 | 3.80 - 11.00 | KRFFII | | | | | K/uL | [...] performed at [facility], [address] | | | | | | [address], | | | | | | [place] [address] | | | | | | | | | | + + + + + + + + | Specimen | + + | Blood | + + + + + + + | Performing | Address | City/State/Zipcode | Phone Number | | Organization | | | | + + + + + | [facility] | [address] | [place] [address] | [phone] | + + + + + Protime INR (11/09/2018 4:14 PDT) + + + + + + | Component | Value | Ref Range | Performed | Pathologist | | | | | At | Signature | + + + + + + | INR | 1.3Comment: REFERENCE | | [facility] | | | | RANGE:0.9 - | [...] | | | | | | [address];[place], [place] | | | | | | [address] | | | | + + + + + + + + | Specimen | + + | Blood | + + + + + + + | Performing | Address | City/State/Zipcode | Phone Number | | Organization | | | | + + + + + | [facility] | [address] | [place] [address] | [phone] | + + + + + Comprehensive [...] | | | | [facility], | | | | | | [place] [address] | | | | + + + + + + + + | Specimen | + + | Blood | + + + + + + + | Performing | Address | City/State/Zipcode | Phone Number | | Organization | | | | + + + + + | [facility] | [address] | [place] [address] | [phone] | + + + + + CBC [...] | | | | [facility], | | | | | | [place] [address] | | | | | |Testing performed at [facility], [address] [place] [address] | | | | | | | | | | + + +--- + + + + + | Specimen | + + | Blood | + + + + + + + | Performing | Address | City/State/Zipcode | Phone Number | | Organization | | | | + + + + + | [facility] | [address] | [place] [address] | [phone] | + + + + + Protime INR (11/08/2018 4:47 PDT) + + + + + + | Component | Value | Ref Range | Performed | Pathologist | | | | | At | Signature | + + + + + + | INR | 1.3Comment: REFERENCE | | [facility] | | | | RANGE:0.9 - | [...] | | | | | | [address];[place] | | | | | | [address] | | | | + + + + + + + + | Specimen | + + | Blood | + + + + + + + | Performing | Address | City/State/Zipcode | Phone Number | | Organization | | | | + + + + + | [facility] | [address] [facility] | [place] [address] | [phone] | + + + + + XR [...] is | | | punctured with an 5-Ugandan thoracentesis catheter. Fluid is aspirated | | [...] the pleural space is punctured with an 5-Ugandan | | thoracentesis catheter. Fluid is aspirated [...] | | LABORATORY | | | | Blvd;[place] [address] | | | | + + [...] RESULT | Testing performed at | | [facility] | | | | [facility], [address] [facility] | | LABORATORY | | | | [place], [place] | | | | | | [address]Uiwcebb: Testing | | | | | | performed at [facility], [address] | | | | | | [facility], [place], [place] | | | | | | [address] | | | | + + + + + + + + | Specimen | + + | Body Fluid | + + + + + + + | Performing | Address | City/State/Zipcode | Phone Number | | Organization | | | | + + + + + | [facility] | [address] [facility] | [place] [address] | [phone] | + + + + + Protein, Body Fluid (11/07/2018 15:15 PDT) + + + + + + | Component | Value | Ref Range | Performed | Pathologist | | | | | At | Signature | + + + + + + | Protein, BF | 3.4Comment: This is not | g/dL | [facility] | | | | a lining vamper validated | | LABORATORY | | | | sample type for this | | | | | | method. No | | | | | | referenceranges have | | | | | | been established.Testing | | | | | | performed at [facility], [address] | | | | | [address], | | | | | | [place] [address] | | | | + + + + + + | SOURCE | PLEURAL FLUIDComment: | | [facility] | | | | Testing performed at | | LABORATORY | | | | [facility];[address] [facility] | | | | | | [address];[place] [address] | | | | + + + + + + + + | Specimen | + + | Body Fluid | + + + + + + + | Performing | Address | City/State/Zipcode | Phone Number | | Organization | | | | + + + + + | [facility] | [address] | [place] [address] | [phone] | + + + + + Lactate dehydrogenase, body fluid (11/07/2018 15:15 PDT) + + + + + + | Component | Value | Ref Range | Performed | Pathologist | | | | | At | Signature | + + + + + + | LDH, BODY | 102Comment: This is not | U/L | [facility] | | | FLUID | a lining vamper validated | | LABORATORY | | | | sample type for this | | | | | | method. No | | | | | | referenceranges have | | | | | | been established.Testing | | | | | | performed at [facility], [address] | | | | | | [address] [facility] [place] [facility], | | | | | | [place] [address] | | | | + + + + + + + + | Specimen | + + | Body Fluid | + + + + + + + | Performing | Address | City/State/Zipcode | Phone Number | | Organization | | | | + + + + + | [facility] | [address] | [place] [address] | [phone] | + + + + + Glucose, Body Fluid (11/07/2018 15:15 PDT) + + + + + + | Component | Value | Ref Range | Performed | Pathologist | | | | | At | Signature | + + + + + + | Glucose | 96Comment: This is not a | mg/dL | [facility] | | | Fluid | lining vamper validated | | LABORATORY | | | | sample type for this | | | | | | method. No | | | | | | referenceranges have | | | | | | been established.Testing | | | | | | performed at [facility], [address] | | | | | [address], | | | | | | [place] [address] | | | | + + + + + + | SOURCE | PLEURAL FLUIDComment: | | [facility] | | | | Testing performed at | | LABORATORY | | | | [facility];[address] | | | | | | [address];[place] [address] | | | | + + + + + + + + | Specimen | + + | Body Fluid | + + + + + + + | Performing | Address | City/State/Zipcode | Phone Number | | Organization | | | | + + + + + | [facility] | [address] | [place] [address] | [phone] | + + + + + Cell [...] + + + | BF RBC | <76714 | /mm3 | [facility] | | | [...] | | | Counted | performed at [facility];[address] | | LABORATORY | | | | [address];[place], [place] | | | | | | [address] | | | | + + + + + + + + | Specimen | + + | Body Fluid | + + + + + + + | Performing | Address | City/State/Zipcode | Phone Number | | Organization | | | | + + + + + | [facility] | [address] | [place] [address] | [phone] | + + + + + Amylase, Body Fluid (11/07/2018 15:15 PDT) + + + + + + | Component | Value | Ref Range | Performed | Pathologist | | | | | At | Signature | + + + + + + | AMYLASE | 46Comment: This is not a | U/L | [facility] | | | FLUID | lining vamper validated | | LABORATORY | | | | sample type for this | | | | | | method. No | | | | | | referenceranges have | | | | | | been established.Testing | | | | | | performed at [facility], [address] | | | | | [address], | | | | | | [place] [address] | | | | + + + + + + + + | Specimen | + + | Body Fluid | + + + + + + + | Performing | Address | City/State/Zipcode | Phone Number | | Organization | | | | + + + + + | [facility] | [address] | [place] [address] | [phone] | + + + + + Albumin, Body Fluid (11/07/2018 15:15 PDT) + + + + + + | Component | Value | Ref Range | Performed | Pathologist | | | | | At | Signature | + + + + + + | Albumin, | 2.0Comment: This is not | g/dL | [facility] | | | Fluid | a lining vamper validated | | LABORATORY | | | | sample type for this | | | | | | method. No | | | | | | referenceranges have | | | | | | been established.Testing | | | | | | performed at [facility], [address] | | | | | [address], | | | | | | [place] [address] | | | | + + + + + + + + | Specimen | + + | Body Fluid | + + + + + + + | Performing | Address | City/State/Zipcode | Phone Number | | Organization | | | | + + + + + | [facility] | [address] | [place] [address] | [phone] | + + + + + Medical Cytology (11/07/2018 15:15 PDT) + + | Specimen | + + | Body Fluid | + + + + + | Narrative | Performed At | + + + | ORDERING | DC PATHOLOGY | | PHYSICIAN:Dex ALMEIDA, Darell U PATIENT NAME:DARA LOUISE | INCYTE | | NIKIAEGENDER: Alysia : 1995 SPECIMEN(S): A PLEURAL | [...] | | | preparation was performed by [email or web address], [address] | | | [place] [address] (Embedded Hardware Engineer: Matt Claudio D.O.; | | | CLIA#: [id number]).Professional interpretation was performed by | | | [email or web address], | | | [place] [address] (Embedded Hardware Engineer: Daniel Larson M.D.; | | | CLIA#: [id number]).6 Diagnostician: Enrrique Nichols | | | CT([facility])CytotechnologistDiagnostician: Daniel Larson | | | MDPathologistElectronically Signed 11/13/2018 | | |DESCRIPTION: | | |The preparations contain mesothelial cells, rare inflammatory cells, and acellular proteina ceous material. Atypical cytologic findings are not encountered. | | | | | |SPECIMEN ADEQUACY: | | |Satisfactory for Evaluation | | | | | |PERFORMING LABORATORY: | | |Technical preparation was performed by [email or web address], [address] [place] [address] (Embedded Hardware Engineer: Matt Claudio D.O.; CLIA#: [id number]). | | |Professional interpretation was performed by [facility], [address] [place] [address] (Embedded Hardware Engineer: Daniel Larson M.D.; [facility]# : [id number]).6 | | | | | |Diagnostician: Enrrique BROOKS([facility]) | | |Maintenance And Operations Supervisor | | |Diagnostician: Daniel Larson MD | [...] | examination for definitive assessment. Signed by: Habbu, | | | Eliza Brian Sign Date/Time: [...] + + + + + | Troponin T | 0.045 (H)Comment: 0.04 | 0.00 - [...] at | | | | | | [facility];[address] [facility] | | | | | | [address];[place] [address] | | | | + + + + + + + + | Specimen | + + | Blood | + + + + + + + | Performing | Address | City/State/Zipcode | Phone Number | | Organization | | | | + + + + + | [facility] | [address] | [place] [address] | [phone] | + + + + + ECG [...] performed at [facility] | | | | | | [address];[place], [place] | | | | | | [address] | | | | + + + + + + + + | Specimen | + + | Blood | + + + + + + + | Performing | Address | City/State/Zipcode | Phone Number | | Organization | | | | + + + + + | [facility] | [address] | [place] [address] | [phone] | + + + + + Platelet Count (11/07/2018 4:03 PDT) + + + + + + | Component | Value | Ref Range | Performed | Pathologist | | | | | At | Signature | + + + + + + | Platelet | 185Comment: Testing | 150 - 400 K/uL | [facility] | | | Count | performed at [facility], [address] | | LABORATORY | | | | [address], | | | | | | [place] [address] | | | | + + + + + + + + | Specimen | + + | Blood | + + + + + + + | Performing | Address | City/State/Zipcode | Phone Number | | Organization | | | | + + + + + | [facility] | [address] | [place] [address] | [phone] | + + + + + PTT (11/07/2018 4:03 PDT) + + + + + + | Component | Value | Ref Range | Performed | Pathologist | | | | | At | Signature | + + + + + + | PTT | 27Comment: Testing | 23 - 32 seconds | MISHEL | | | | performed at [facility];[address] | | LABORATORY | | | | [address];[place] | | | | | | [address] | | | | + + + + + + + + | Specimen | + + | Blood | + + + + + + + | Performing | Address | City/State/Zipcode | Phone Number | | Organization | | | | + + + + + | [facility] | [address] | [place] [address] | [phone] | + + + + + Lactate Dehydrogenase (11/07/2018 4:03 PDT) + + + + + + | Component | Value | Ref Range | Performed | Pathologist | | | | | At | Signature | + + + + + + | LDH TOTAL | 202Comment: Testing | 120 - 246 U/L | [facility] | | | | performed at [facility];[address] | | LABORATORY | | | | [facility], [place] | | | | | | [address] | | | | + + + + + + + + | Specimen | + + | Blood | + + + + + + + | Performing | Address | City/State/Zipcode | Phone Number | | Organization | | | | + + + + + | [facility] | [address] | [place] [address] | [phone] | + + + + + Magnesium (11/07/2018 4:03 PDT) + + + + + + | Component | Value | Ref Range | Performed | Pathologist | | | | | At | Signature | + + + + + + | Magnesium | 2.3Comment: Testing | 1.7 - 2.4 mg/dL | [facility] | | | | performed at [facility];[address] | | LABORATORY | | | | [address];[place] | | | | | | [address] | | | | + + + + + + + + | Specimen | + + | Blood | + + + + + + + | Performing | Address | City/State/Zipcode | Phone Number | | Organization | | | | + + + + + | [facility] | [address] | [place] [address] | [phone] | + + + + + Comprehensive [...] | | | | | | MDRD IDNY traceable | | | | | | equation.Testing | | | | | | performed at [facility], [address] | | | | | | [facility], | | | | | | [place] [address] | | | | + + + + + + + + | Specimen | + + | Blood | + + + + + + + | Performing | Address | City/State/Zipcode | Phone Number | | Organization | | | | + + + + + | [facility] | [address] | [place] [address] | [phone] | + + + + + Troponin I (11/06/2018 21:54 PDT) + + + + + + | Component | Value | Ref Range | Performed | Pathologist | | | | | At | Signature | + + + + + + | Troponin T | 0.045 (H)Comment: 0.04 | 0.00 - 0.04 | [facility] | | | | ng/mL or | [...] at | | | | | | [facility];[address] [place] [address] | | | | | | [facility];[place] [address] | | | | + + + + + + + + | Specimen | + + | Blood | + + + + + + + | Performing | Address | City/State/Zipcode | Phone Number | | Organization | | | | + + + + + | [facility] | [address] | [place] [address] | [phone] | + + + + + Protime INR (11/06/2018 17:32 PDT) + + + + + + | Component | Value | Ref Range | Performed | Pathologist | | | | | At | Signature | + + + + + + | INR | 1.3Comment: REFERENCE | | [facility] | | | | RANGE:0.9 - | [...] | | | | | [address];[place] | | | | | | [address] | | | | + + + + + + + + | Specimen | + + | Blood | + + + + + + + | Performing | Address | City/State/Zipcode | Phone Number | | Organization | | | | + + + + + | [facility] | [address] | [place] [address] | [phone] | + + + + + ECHO [...] + + + + + | Troponin T | 0.066 (H)Comment: 0.04 | 0.00 - [...] at | | | | | | [facility];[address] [facility] | | | | | | Blvd;[place] [address] | | | | + + + + + + + + | Specimen | + + | Blood | + + + + + + + | Performing | Address | City/State/Zipcode | Phone Number | | Organization | | | | + + + + + | [facility] | [address] | [place] [address] | [phone] | + + + + + Magnesium (11/06/2018 15:57 PDT) + + + + + + | Component | Value | Ref Range | Performed | Pathologist | | | | | At | Signature | + + + + + + | Magnesium | 2.4Comment: Testing | 1.7 - 2.4 mg/dL | [facility] | | | | performed at [facility], [address] | | LABORATORY | | | | [address], | | | | | | [place] [address] | | | | + + + + + + + + | Specimen | + + | Blood | + + + + + + + | Performing | Address | City/State/Zipcode | Phone Number | | Organization | | | | + + + + + | [facility] | [address] | [place] [address] | [phone] | + + + + + documented [...] | + + | ESRD on hemodialysis ([facility]) End stage renal disease | + [...] dose on Mon11/07/18 at 0900 | | PDT | | [...] | | | | | Pain, Starting Mon11/07/18 at | | | | | | [...] | PDT | | | | | Mon11/06/18 [...] | on 11/06/18 at 1730 | | PDT | | | | + +-------+ +-------+---+---+ +-------+ +-------+---+---+ | Given | 11/08/19 | 40 mg | | | | | 19 10:58 | | | | | | PDT | | | | +-------+ +-------+---+---+ +---+---+ | | | +---+---+ documented in this encounter
--- OUTSIDE RECORDS SUMMARY | ~2018-12-09 | XMS | Encounter Summary ---
Demographics + + + | Address | [address] | | | [place] [address] | + + + | Home Phone [...] | | | | | [place] [address] | | + + + + + | Thania Mallory | ECON | [address] | | | | | [place] [address] | | + + + + + | Deidra Weldon | ECON | [address] | | | | | [place] | | | | | [address] | | + + + + + Care Team Providers + +------+ + | Care Banquet Coordinator Name | Role | Phone | [...] [address] | consultation ([place] ANNALISA | | | | [address]NAL[address] | [address] | attempt(s) to | | | | Rd [place], [place] | [place], [place] | contact pt re move | | | | [address] | [address] | and new PAF as | | | | [phone] | | listed) | +--------+ + + [...] [place] | | | | | | [address] | | | | | | [phone] | | | | | | | | +--------+ + + + + documented as of this encounter Visit Diagnoses Not on filedocumented in this encounter"
--- OUTSIDE RECORDS SUMMARY | ~2018-12-09 | XMS | Encounter Summary ---
Demographics + + + | Address | [address] | | | [place] [address] | + + + | Home Phone [...] | | | | | [place] [address] | | + + + + + | Thania Mallory | ECON | [address] | | | | | [place] [address] | | + + + + + | Deidra Weldon | ECON | [address] | | | | | [place] | | | | | [address] | | + + + + + Care Team Providers + +------+ + | Care Marine Water Tender Name | Role | Phone | [...] | Update | | | | ANNALISA [facility] | [facility] | | | | | Rd [place], [place] | [place], [place] | | | | | [address] | [address] | | | | | [phone] | | | +--------+ + + + [...] Denise | | | | | | [place], [place] | | | | | | [address] | | | | | | [phone] | | | | | | | | +--------+ + + + + documented as of this encounter Visit Diagnoses Not on filedocumented in this encounter"
--- OUTSIDE RECORDS SUMMARY | ~2018-12-09 | XMS | Encounter Summary ---
Demographics + + + | Address | [address] | | | [place] [address] | + + + | Home Phone [...] | | | | | [place] [address] | | + + + + + | Thania Mallory | ECON | [address] | | | | | [place] [address] | | + + + + + | Deidra Weldon | ECON | [address] | | | | | [place] | | | | | [address] | | + + + + + Care Team Providers + +------+ + | Care Director Hospice Operations Name | Role | Phone | [...] Requested | | | | Alexander | [facility] | | | | | [facility] | [place], [place] | | | | | [address] [place] | [address] | | | | | [facility] Mailcode: | | | | | | [address] | | | | | | [place], [place] | | | | | | [address] | | | | | | [phone] | | | +--------+ + + + [...] Denise | | | | | | [place], [place] | | | | | | [address] | | | | | | [phone] | | | | | | | | +--------+ + + + + documented as of this encounter Visit Diagnoses Not on filedocumented in this encounter"
--- OUTSIDE RECORDS SUMMARY | ~2018-12-09 | XMS | Encounter Summary ---
Demographics + + + | Address | [address] | | | [place] [address] | + + + | Home Phone [...] | | | | | [place] [address] | | + + + + + | Thania Mallory | ECON | [address] | | | | | [place] [address] | | + + + + + | Deidra Weldon | ECON | [address] | | | | | [place] | | | | | [address] | | + + + + + Care Team Providers + +------+ + | Care Poker Machine Attendant Name | Role | Phone | [...] | | | | | [address] [facility] | [facility] | | | | | Rd [place], [place] | [place], [place] | | | | | [address] | [address] | | | | | [phone] | | | +--------+ + + + [...] Denise | | | | | | [place], [place] | | | | | | [address] | | | | | | [phone] | | | | | | | | +--------+ + + + + documented as of this encounter Visit Diagnoses Not on filedocumented in this encounter"
--- OUTSIDE RECORDS SUMMARY | ~2018-12-09 | XMS | Encounter Summary ---
Demographics + + + | Address | [address] | | | [place] [address] | + + + | Home Phone [...] | | | | | [place] [address] | | + + + + + | hTania Mallory | ECON | [address] | | | | | [place] [address] | | + + + + + | Deidra Weldon | ECON | [address] | | | | | [place] | | | | | [address] | | + + + + + Care Team Providers + +------+ + | Care Knot Cutter Name | Role | Phone | [...] | | | | [facility] | [place], [place] | | | | | [address] | [address] | | | | | Caro Chan Mailcode: | [phone] | | | | | [address] | | | | | | [place], [place] | | | | | | [address] | | | | | | [phone] | | | +--------+ + + + [...] Denise | | | | | | [place], [place] | | | | | | [address] | | | | | | [phone] | | | | | | | | +--------+ + + + + documented as of this encounter Visit Diagnoses Not on filedocumented in this encounter"
--- OUTSIDE RECORDS SUMMARY | ~2018-12-09 | XMS | Encounter Summary ---
Demographics + + + | Address | [address] | | | [place] [address] | + + + | Home Phone [...] | | | | | [place] [address] | | + + + + + | Thania Mallory | ECON | [address] | | | | | [place] [address] | | + + + + + | Deidra Weldon | ECON | [address] | | | | | [place] | | | | | [address] | | + + + + + Care Team Providers + +------+ + | Care Journalism Intern Name | Role | Phone | [...] [address]un | | | | | [facility] | [facility] | | | | | Rd [place], [place] | [place], [place] | | | | | [address] | [address] | | | | | [phone] | | | +--------+ + + + [...] Denise | | | | | | [place] | | | | | | [address] | | | | | | [phone] | | | | | | | | +--------+ + + + + documented as of this encounter Visit Diagnoses Not on filedocumented in this encounter"
--- OUTSIDE RECORDS SUMMARY | ~2018-12-09 | XMS | Encounter Summary ---
Demographics + + + | Address | [address] | | | [place] [address] | + + + | Home Phone [...] + | Author | [facility] [employer] (Historical as of | | | 10-20-18) | + + + | Organization | [facility] [employer] (Historical as of | | | 10-20-18) [...] Team Providers + +------+ + | Care Mock Up Builder Name | Role | Phone | + +------+ + | Jonathan Alonso MD | PCP | | + +------+ + Reason for Visit +--------+ + | Reason | Comments | +--------+ + | Other | August 2018-[facility] Provider Dialysis Rounding Note | +--------+ + Encounter Details +--------+ + + + + | Date | Type | Department | Care Team | Description | +--------+ + + + + | 09/13/ | Documentati | [facility] | René Anguiano MD | Other (August | | 2018 | on Only | [address] | [address] | 2019-[facility] Provider | | | | [address] | [address] [place], [place] | Dialysis Rounding | | | | [place] [address] | [address] | Note) | | | | [phone] | | | +--------+ + + + + Social History + + + +--------+ + | Tobacco Use | Types | Packs/Day | Years | Date | | | | | Used | | + + + +--------+ + | Former Smoker | Cigarettes | 0.5 | 2 | Quit: 06/28/2016 | + + + +--------+ + + [...] | | | | | [place] [address] | | | | | | [phone] | | | | | | | | +--------+---------+ + + + as of this encounter Visit Diagnoses Not on filein this encounter"
--- OUTSIDE RECORDS SUMMARY | ~2018-12-09 | XMS | Encounter Summary ---
Demographics + + + | Address | [address] | | | [place] [address] | + + + | Home Phone [...] | | | | | [place] [address] | | + + + + + | Thania Mallory | ECON | [address] | | | | | [place] [address] | | + + + + + | Deidra Weldon | ECON | [address] | | | | | [place] | | | | | [address] | | + + + + + Care Team Providers + +------+ + | Care Firer Portable Boiler Name | Role | Phone | + [...] Shun | | | | | ANNALISA [facility] | [facility] | | | | | Rd [place], [place] | [place], [place] | | | | | [address] | [address] | | | | | [phone] | | | +--------+ + + + [...] Denise | | | | | | [place], [place] | | | | | | [address] | | | | | | [phone] | | | | | | | | +--------+ + + + + documented as of this encounter Visit Diagnoses Not on filedocumented in this encounter"
--- OUTSIDE RECORDS SUMMARY | ~2018-12-09 | XMS | Encounter Summary ---
Demographics + + + | Address | [address] | | | [place] [address] | + + + | Home Phone [...] | | | | | [place] [address] | | + + + + + | Thania Mallory | ECON | [address] | | | | | [place] [address] | | + + + + + | Deidra Weldon | ECON | [address] | | | | | [place] | | | | | [address] | | + + + + + Care Team Providers + +------+ + | Care Yellow Pages Space Salesperson Name | Role | Phone | [...] class) | | | | ANNALISA [place] | [facility] | | | | | Rd [place], [place] | [place], [place] | | | | | [address] | [address] | | | | | [phone] | | | +--------+ + + + [...] Denise | | | | | | [place], [place] | | | | | | [address] | | | | | | [phone] | | | | | | | | +--------+ + + + + documented as of this encounter Visit Diagnoses Not on filedocumented in this encounter"
--- OUTSIDE RECORDS SUMMARY | ~2018-12-09 | XMS | Encounter Summary ---
Demographics + + + | Address | [address] | | | [place] [address] | + + + | Home Phone [...] | | | | | [place] [address] | | + + + + + | Thania Mallory | ECON | [address] | | | | | [place] [address] | | + + + + + | Deidra Weldon | ECON | [address] | | | | | [place] | | | | | [address] | | + + + + + Care Team Providers + +------+ + | Care Enterprise Solutions Architect Name | Role | Phone [...] | | | | | Caro [address] [place], | | | | | | [place] [address] | | | +--------+ + + + [...] Denise | | | | | | [place], [place] | | | | | | [address] | | | | | | [phone] | | | | | | | [...] [facility] - | [address], | [place] [address] | | | IMMUNOGENETICS/TRANS | [address] | | | | [facility] | | | | + + + + + documented in this encounter Visit Diagnoses Not on filedocumented in this encounter"
--- OUTSIDE RECORDS SUMMARY | ~2018-12-09 | XMS | Encounter Summary ---
Demographics + + + | Address | [address] | | | [place] [address] | + + + | Home Phone [...] | | | | | [place] [address] | | + + + + + | Thania Mallory | ECON | [address] | | | | | [place] [address] | | + + + + + | Deidra Weldon | ECON | [address] | | | | | [place] | | | | | [address] | | + + + + + Care Team Providers + +------+ + | Care Tank Builder Name | Role | Phone | [...] [address] | RN [address] | Transplant - Renal | | | | [facility] | [facility] | | | | | Rd [place], [place] | [place], [place] | | | | | [address] | [address] | | | | | [phone] | | | +--------+ + + + [...] | | | | | [place], [place] | | | | | | [address] | | | | | | [phone] | | | | | | | [...]
--- OUTSIDE RECORDS SUMMARY | ~2018-12-09 | XMS | Encounter Summary ---
Demographics + + + | Address | [address] | | | [place] [address] | + + + | Home Phone [...] | | | | | [place] [address] | | + + + + + | Thania Mallory | ECON | [address] | | | | | [place] [address] | | + + + + + | Deidra Weldon | ECON | [address] | | | | | [place] | | | | | [address] | | + + + + + Care Team Providers + +------+ + | Care Solar Site Assessment Specialist Name | Role | Phone | [...] | Update | | | | [facility] | [facility] | | | | | Rd [place], [place] | [place], [place] | | | | | [address] | [address] | | | | | [phone] | | | +--------+ + + + [...] [place] | | | | | | [address] | | | | | | [phone] | | | | | | | | +--------+ + + + + documented as of this encounter Visit Diagnoses Not on filedocumented in this encounter"
--- OUTSIDE RECORDS SUMMARY | ~2018-12-09 | XMS | Encounter Summary ---
Demographics + + + | Address | [address] | | | [place] [address] | + + + | Home Phone [...] | | | | | [place] [address] | | + + + + + | Thania Mallory | ECON | [address] | | | | | [place] [address] | | + + + + + | Deidra Louise | ECON | [address] | | | | | [place] | | | | | [address] | | + + + + + Care Team Providers + +------+ + | Care Reporting Coordinator Name | Role | Phone | [...] | purpura | [address] | [facility] [address] | | | | | (HCC) HSP | [address] | [address] | | | | | (Amelie | [address] | [address] | | | | | nlein | [place], [place] | Mailcode: | | | | | purpura) | [address] | DC7S | | | | | nephritis | Phone: | Doerarielaecher | | | | | (HCC) | [phone] | [place], [place] | | | | | Hemodialysis | Fax: | [address] | | | | | status | [phone] | Phone: | | | | | (HCC) | | [phone] | | | | | Chronic | | Fax: | | | | | kidney | | [phone] | | | | | disease, | | | | | | | stage V | | | | | | | ([facility]) | | | | | [...] | Appointment | | | | ANNALISA [facility] | [facility] | | | | | Rd [place], [place] | [place], [place] | | | | | [address] | [address] | | | | | [phone] | | | +--------+ + + + [...] | | | | | | [place], [place] | | | | | | [address] | | | | | | [phone] | | | | | | | | +--------+ + + + + + +------+--------+ + + | Name | Type | Priori | Associated Diagnoses | Order Schedule | | | | ty | | | + +------+--------+ + + | 12 LEAD ECG | ECG | Routin | Allergic purpura- | Ordered: 01/07/2015 | | | | e | MEDICARE 2788 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 | | | | | | Hemodialysis status | | | | | | ([facility]) Chronic | | | | | | kidney disease, | | | | | | stage V ([facility]) | | + +------+--------+ + [...] BSA | | | | | | (GRADY Z | | | | | | [...] 2:35 PM PST Echocardiography Laboratory | | [address] | | [place] [address] | | ; | | [id number] | | | | Transthoracic Echocardiogram Report | | | | | | NAME: DARA LOUISE Study Date: 01/20/2015 1:18:29 PM | | Order #: [id number] ACC #: [id number] | | | | | | : [...] on 01/20/2015 at 2:35:17 PM | | Animal Researcher: YARITZA KLINE RD | | | | | | cc: | | | | | | Modes utilized | | TTE 57148; Spectral Doppler 57559; Color flow Doppler 55480; | | | | | | | | Final | + + + + + + + | Performing | Address | City/State/Zipcode | Phone Number | | Organization | | | | + + + + + | [facility] | [address] | [place], [place] | | | CARDIOLOGY | [address] | [address] | | + + + + + [...] | + + + + + | [facility] | [address] | [place] [address] | | | SERVICES, SPECIAL | PARK [...] TILA | [address] | [place] [address] | | | DIAGNOSTIC | [address] [...] + | [facility] - | [address] | [place] [address] | | | [facility] | | | | + + + [...] + | [facility] - | [address] | [place] [address] | | | [place] | | | [...] + | [facility] - | [address] | [place] [address] | | | [place] | | | | + + + [...] + | [facility] - | [address] | [place] [address] | | | [place] | | | | + + + [...] by | | | | | | [address] | | | | | | Pippa Drew, [facility],[place] | | | | | | [address] | | | | | | [phone].[employer]. | | | | | | Faisal [...] [facility] | [address] | [place], [place] | | | UN[facility] P[facility] - INT[facility] | | [address] | | + + + + + [...] | + + + + + | [facility] - | [address] | [place] [address] | | | [place] | | | [...] by | | | | | | [address] | | | | | | Pippa Rajendra, [facility],[place] | | | | | | [address] | | | | | | [phone].[employer]. | | | | | | Faisal [...] [facility] | [address] | [place], [place] | | | UN[facility] | | [address] | | + + + + + [...] [facility] | [address] | [place] [address] | | | SERVICES, CORE | PARK [...] | + + + + + | [facility] | [address] | [place] [address] | | | SERVICES, HOMERO | LONG [...] | + + + + + | [facility] | [address] | [place] [address] | | | RIKY, CORE | [address] | | | + + + + + MAGNESIUM, PLASMA (01/20/2015 9:59 AM PST) + +-------+ + + + | Component | Value | Ref Range | Performed | Pathologist | | | | | At | Signature | + +-------+ + + + | MAGNESIUM,P | 2.3 | 1.8 - 2.5 mg/dL | [facility] | | | LEONILA | | | [...] [facility] | [address] | [place] [address] | | | SERVICES, CORE | PARK [...] | + + + + + | [facility] | [address] [address] | [place] [address] | | | SERVICES, CORE | LONG [...] | | | LABORATORY | | | MAURITIAN | | | SERVICES, | | | [...] [facility] [place] | [address] | [place] [address] | | | SERVICES, CORE | PARK [...]
--- OUTSIDE RECORDS SUMMARY | ~2018-12-09 | XMS | Encounter Summary ---
Demographics + + + | Address | [address] | | | [place] [address] | + + + | Home Phone [...] | | | | | [place] [address] | | + + + + + | Thania Mallory | ECON | [address] | | | | | [place] [address] | | + + + + + | Deidra Weldon | ECON | [address] | | | | | [place] | | | | | [address] | | + + + + + Care Team Providers + +------+ + | Care Bobtail Driver Name | Role | Phone | [...] | | | [place], | [place] [address] | | | | | [place] [address] | [phone] | | | | | | | [...] Denise | | | | | | [place], [place] | | | | | | [address] | | | | | | [phone] | | | | | | | | +--------+ + + + + documented as of this encounter Visit Diagnoses Not on filedocumented in this encounter"
--- OUTSIDE RECORDS SUMMARY | ~2018-12-09 | XMS | Encounter Summary ---
Demographics + + + | Address | [address] | | | [place] [address] | + + + | Home Phone [...] | | | | | [place] [address] | | + + + + + | Thania Mallory | ECON | [address] | | | | | [place] [address] | | + + + + + | Deidra Weldon | ECON | [address] | | | | | [place] | | | | | [address] | | + + + + + Care Team Providers + +------+ + | Care Licensing Registration Examiner Name | Role | Phone | [...] | | Nephrology at | MD Emanuel [address] | | | | | Alexander | [address] | | | | | [facility] | [place], [place] | | | | | [address] | [address] | | | | | Caro Chan Mailcode: | [phone] | | | | | [address] | | | | | | [place], [place] | | | | | | [address] | | | | | | [phone] | | | +--------+ + + + [...] Denise | | | | | | [place], [place] | | | | | | [address] | | | | | | [phone] | | | | | | | [...] [address] | [place] [address] | [phone] | | HOSPITAL | | | | [...] | [address] | [place] [address] | [phone] | | HOSPITAL | | | | + + + + + documented in this encounter Visit Diagnoses Not on filedocumented in this encounter"
--- OUTSIDE RECORDS SUMMARY | ~2018-12-09 | XMS | Encounter Summary ---
Demographics + + + | Address | [address] | | | [place] [address] | + + + | Home Phone [...] | | | | | [place] [address] | | + + + + + | Thania Mallory | ECON | [address] | | | | | [place] [address] | | + + + + + | Deidra Weldon | ECON | [address] | | | | | [place] | | | | | [address] | | + + + + + Care Team Providers + +------+ + | Care Transplant Surgeon Name | Role | Phone | [...] | Nephrology at | RN [address] [facility] | | | | | [place] | [facility] | | | | | [facility] | [place], [place] | | | | | [address] [facility] | [address] | | | | | [facility] Mailcode: | | | | | | [address] | | | | | | [place], [place] | | | | | | [address] | | | | | | [phone] | | | +--------+ + + + [...] [place] | | | | | | [address] | | | | | | [phone] | | | | | | | | +--------+ + + + + documented as of this encounter Visit Diagnoses + + | Diagnosis | + + | 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
--- OUTSIDE RECORDS SUMMARY | ~2018-12-09 | XMS | Encounter Summary ---
Demographics + + + | Address | [address] | | | [place] [address] | + + + | Home Phone [...] | Author | [facility] (Historical as of | | | 10-20-18) | + + + | Organization | [facility] (Historical as of | | | 10-20-18) [...] Team Providers + +------+ + | Care Chocolate Temperer Name | Role | Phone | + +------+ + | Jonathan Alonso MD | PCP | | + +------+ + Reason for Referral Consultation (Routine) + + + + + + + | Status | Reason | Specialty | Diagnoses / | Referred By | Referred To | | | | | Procedures | Contact | Contact | + + + + + + + | Authorized | Specialty | Sleep | Diagnoses | Benjamin, | Lab, Chi | | | Services | Medicine | SHADE | Denny | [facility] | | | Required | | (obstructive | Deny Briggs MD | Sleep | | | | | sleep | 1100 | Disorders | | | | | apnea) | Shantelle Iraheta | [facility] | | | | | | Jaciel [address] | [facility] | | | | | | [place], [place] | [address] | | | | | | [address] | [address] | | | | | | Phone: | [employer], [place] | | | | | | [phone] | [address] | | | | | | Fax: | Phone: | | | | | | [phone] | [phone] | | | | | | | Fax: | | | | | | | [phone] | + + + + + + + Reason for Visit +--------+ + | Reason | Comments | +--------+ + | Other | New pt- Pleural effusion | +--------+ + Consultation (Routine) + + + + + + + | Status | Reason | Specialty | Diagnoses / | Referred By | Referred To | | | | | Procedures | Contact | Contact | + + + + + + + | Authorized | Specialty | Pulmonary | Diagnoses | Romero Martínez | | | Services | Disease / | Pleural | MD Usha | Pulmonology | | | Required | Pulmonology | effusion on | [address] | [address] | | | | | right | [address] | [address] | | | | | | [address] | [place], [place] | | | | | | [place], [place] | [address] | | | | | | [address] | Phone: | | | | | | Phone: | [phone] | | | | | | [phone] | | | | | | | Fax: | | | | | | | [phone] | | + + + + + + + Encounter Details +--------+---------+ + + + | Date | Type | Department | Care Team | Description | +--------+---------+ + + + | 10/02/ | Office | [facility] | Denny Alexander | Pleural effusion | | 2019 | Visit | Pulmonology 1100 | Deny Briggs MD 1100 | (Primary Dx); SHADE | | | | Shantelle PRAJAPATI | Shantelle Grissom E | (obstructive sleep | | | | [place], [place] | [place] [address] | apnea); Marijuana | | | | [address] | [phone] | abuse | | | | [phone] | | | +--------+---------+ + + + Social History + + + +--------+ + | Tobacco Use | Types | Packs/Day | Years | Date | | | | | Used | | + + + +--------+ + | Former Smoker | Cigarettes | 0.5 | 3 | Quit: 2017 | + + + +--------+ + + [...] + + + | Blood Pressure | 128/88 | 10/02/2018 12:32 PM PDT | + + + + | Pulse | 103 | 10/02/2018 12:32 PM PDT | + + + + | Temperature | 36.2 C (97.1 F) | 10/02/2018 12:32 PM PDT | + + + + | Respiratory Rate | - | - | + + + + | Oxygen Saturation | 95% | 10/02/2018 12:32 PM PDT | + + + + | Inhaled Oxygen | - | - | | Concentration | | | + + + + | Weight | 72.1 kg (159 lb) | 10/02/2018 12:32 PM PDT | + + + + | Height | 170.2 cm (5' 7") | 10/02/2018 12:32 PM PDT | + + + + | Body Mass Index | 24.9 | 10/02/2018 12:32 PM PDT | + + + + in this encounter Progress Denny Quiros MD - 10/02/2018 12:30 PM PDTFormatting of this note may be diffe rent from the original. Patient: Dara Louise 23 y.o. 1995 Referred from: Usha Martínez MD [address] [facility] [address] [place] [address] Referral reason: Chief Complaint Patient presents with Other New pt- Pleural effusion HPI: Dara Louise is a 23 y/o female referred to me for a right pleural effusion. 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 She swanson s been on dialysis since 7 years ago, initially on PD for 1 year then HD for the past 6. Darrian quarles has a left upper ex AVF. She also has a history of cardiomyopathy with an EF of 20-25% wh ich she found out last May. Back then she was admitted at [facility] for worsening dyspnea fo und to have a large right pleural effusion and ascites from fluid overload. Pleural fluid w as thought to be transudative. She then underwent another thoracentesis on 07/21/18. After that she had another one on 08/21 at [facility] wherein 2.5L was removed. She then had re -expansion pulmonary edema on the right and was transferred to [facility]. This had improved. Currently she is feeling better. She still does have chronic dyspnea on exertion when walki ng moderate distances. She has a mild chronic dry cough. She denies pedal edema at present . She says she was also noted to be desaturating at night in the hospital and her mother se es her stop breathing at night. She has never had a sleep study yet. She says her dry weig ht is usually 66kg and is currently 72kg. She is a former cigarette smoker but quit last ye ar. She smokes marijuana daily for the past 4 years. No other drug use. She is dialyzed Q MWF. Her mental hygienist is Dr. Anguiano and Dr. Mahmood is her community health nurse. Review of Systems Constitutional: Negative. Negative for chills, diaphoresis, fever, malaise/fatigue and bekah ght loss. HENT: Negative. Negative for congestion and sore throat. Eyes: Negative. Respiratory: Positive for cough (mild) and shortness of breath (chronic with moderate exert ion). Negative for hemoptysis, sputum production and wheezing. Cardiovascular: Negative for chest pain, palpitations, orthopnea, leg swelling and PND. Gastrointestinal: Negative for abdominal pain, constipation, diarrhea, nausea and vomiting. Genitourinary: Negative for dysuria. Musculoskeletal: Negative for joint pain. Skin: Negative. Negative for rash. Neurological: Negative for dizziness and focal weakness. Endo/Heme/Allergies: Negative for environmental allergies. All other systems reviewed and are negative. Past Medical History Diagnosis Date Asthma Clotted dialysis access (HCC) 2014 Congestive heart failure (HCC) ESRD (end stage renal disease) (HCC) HSP (Henoch-Schonlein purpura) nephritis (HCC) Hypertension Past Surgical History Procedure Laterality Date ABDOMINAL SURGERY AV FISTULA PLACEMENT Left 04/08/2014 Procedure: AV FISTULA; Surgeon: Rik Simon MD; Location: [facility] MAIN OR; Service: Vascula r; Laterality: Left; cephalic AV FISTULA REPAIR Left 03/07/2014 Procedure: AV FISTULA - GRAFT REPAIR/REVISION; Surgeon: Rik Simon MD; Location: [facility] IN OR; Service: Vascular; Laterality: Left; DECLOT GRAFT Left 03/07/2014 Procedure: GRAFT - DECLOT; Surgeon: Rik Simon MD; Location: [facility] MAIN OR; Service: Vas cular; Laterality: Left; DIALYSIS FISTULA CREATION N/A 04/08/2014 Procedure: DIALYSIS CATHETER - INSERTION; Surgeon: Rik Simon MD; Location: [facility] MAIN OR ; Service: Vascular; Laterality: N/A; tunneled catheter LAPAROSCOPIC PERITONEAL DIALYSIS CATHETER INSERTION x2 LAPAROSCOPIC PERITONEAL DIALYSIS CATHETER INSERTION Right 07/2013 current dialysis access MWF dialysis RENAL BIOPSY Left 2003 SUPERFICIALIZATION OF AV FISTULA Left 06/24/2014 Procedure: AV FISTULA - SUPERFICIALIZATION; Surgeon: Rik Simon MD; Location: [facility] MAIN OR; Service: Vascular; Laterality: Left; Family History Problem Relation Age of Onset [...] file Social History Narrative She lives in [facility]. She does not work. She has 1 full sibling in good health. She has a total of 14 siblings (3 with same mother, rest with same father). 1 half sibling on father's side had a brain tumor. Outpatient Encounter Prescriptions as of 10/02/2018 Medication Sig Dispense Refill albuterol (PROVENTIL HFA;VENTOLIN HFA) 108 (90 Base) MCG/ACT inhaler Inhale 2 puffs int o the lungs every 6 (six) hours as needed. for wheezing 0 clopidogrel (PLAVIX) 75 MG tablet Take 75 mg by mouth daily. Indications: Treatment to Prevent a Blood Clot in a Vascular Stent ipratropium-albuterol (DUO-NEB) 0.5-2.5 mg/3mL Take 3 mLs by nebulization. metoprolol (TOPROL-XL) 50 MG 24 hr tablet [...] tablet by mouth daily. 30 tablet 11 No facility-administered encounter medications on file as of 10/02/2018. Vitals: 10/02/18 1232 BP: 128/88 BP Location: Right upper arm Patient Position: Sitting Pulse: 103 Temp: 97.1 F (36.2 C) TempSrc: Oral SpO2: 95% Weight: 72.1 kg (159 lb) Height: 1.702 m (5' 7") Physical Exam Constitutional: She appears well-developed and well-nourished. No distress. HENT: Mouth/Throat: Oropharynx is clear and moist. No oropharyngeal exudate. Eyes: Conjunctivae are normal. No scleral icterus. Neck: No tracheal deviation present. Cardiovascular: Normal rate, regular rhythm and normal heart sounds. No murmur heard. Pulmonary/Chest: Effort normal. No stridor. No respiratory distress. She has no wheezes. Sh e has no rales. Reduced BS on right lower lung field Abdominal: Soft. She exhibits no distension. There is no tenderness. Musculoskeletal: She exhibits no edema. (+) LUE AVF with good thrill Lymphadenopathy: She has no cervical adenopathy. Neurological: She is alert. Skin: Skin is warm. No cyanosis or erythema. Nails show no clubbing. Vitals reviewed. CXR: 08/22/18 1. Improved aeration of the right lung with reduction of atelectasis and consolidation. 2. A small right pleural effusion is noted. Signed by: Eliza Khan Richard Sign Date/Time: 08/22/2018 10:[address] CHEST: 07/19/18 Large left pleural effusion, unchanged. Associated atelectasis noted along the right lung. Mosaic attenuation of the left lung parenchyma, uncertain etiology. Again, differential considerations for this finding are broad, to include parenchymal, vascular or small airway obstructive process. Partially visualized at least small amount of ascites. Borderline cardiomegaly. Enlarged mediastinal lymph nodes, unchanged. Signed by: Eliza Lenz Amit Sign Date/Time: 07/19/2018 9:13 AM PF CYTOLOGY: 05/28/18 CYTOLOGIC INTERPRETATION: Pleural effusion: Negative for malignant cells. DESCRIPTION: The preparations contain mesothelial cells, rare inflammatory cells, and acellular proteina ceous material. Atypical cytologic findings are not encountered. Results for DARA LOUISE ( ) as of 10/02/2018 13:12 Ref. Range 05/26/2018 14:12 APPEARANCE Unknown CLOUDY LYMPHOCYTES Latest Units: % 8 FLUID ALBUMIN Latest Units: g/dL 2.3 FLUID TOTAL PROTEIN Latest Units: g/dL 4.2 FLUID PH Unknown 7.45 COLOR Unknown SAMMIE Mesothelial Cells Latest Units: % 5 Cells Counted Unknown 100 MONOCYTES/MACROPHAGES Latest Units: % 65 FLUID TYPE Unknown PLEURAL FLUID RBC'S Latest Units: /mm3 3,000 Assessment and Plan: A> 23F with ESRD on HD, CHF (EF20-25%), h/o HSP, with recurrent right pleural effusion P> 1. Recurrent right pleural effusion - the patient has had a recurrent right pleural effusion. My impression is that the pleura l effusion is due volume overload due to her CHF and ESRD. - reviewed the pleural fluid studies. Cytology was negative for malignancy. It is most li jessee that the fluid is transudative. - I advised her to monitor her weight daily and follow a low salt diet. She says her usual dry weight is 66kg and currently she is 72kg. - there is no need for thoracentesis at this time. However, if she becomes more dyspneic s he needs to have her CXR repeated and if the effusion is larger then it needs to be drained again. Would recommend limiting drainage to 1.5L only to avoid re-expansion pulmonary edema . If her shortness of breath is acute and severe, she needs to go to the nearest ED which i s [facility] to have it drained. - I will have her repeat her CXR when she returns for follow up. - if she requires frequent thoracenteses, then another option in the future would be pleuro desis. 2. SHADE (obstructive sleep apnea) - in the hospital, she was told she was desaturating at night and her mother also noted roving changer eic events when sleeping. I recommended having her see a sleep medicine specialist to be ev aluated for SHADE. Will send a referral. 3. Marijuana use - still smoking marijuana daily, she was a former cigarette smoker but quit already. She h as a mild chronic cough and is most likely mild chronic bronchitis from smoking marijuana. - advised her to stop smoking marijuana. Orders: - X-ray chest 2 view frontal & lateral; Future - Ambulatory referral to Sleep Medicine Return in about 3 months (around 01/02/2019). in this encounter Plan of Treatment +--------+---------+ + + + | Date | Type | Specialty | Care Team | Description | +--------+---------+ + + + | 12/18/ | Office | Pulmonology | Denny Alexander | | | 2019 | Visit | | Deny Briggs MD [address] | | | | | | [address] | | | | | | [place] [address] | | | | | | [phone] | | | | | | | | +--------+---------+ + + + + +--------+ + + | Name | Priori | Associated Diagnoses | Order Schedule | | | ty | | | + +--------+ + + | X-ray chest 2 view frontal & | Routin | Pleural effusion | Expected: | | lateral | e | | 10/02/2018, Expires: | | | | | 04/02/2019 | + +--------+ + + + +--------+ + + | Name | Priori | Associated Diagnoses | Order Schedule | | | ty | | | + +--------+ + + | Ambulatory referral to Sleep | Routin | SHADE (obstructive | Ordered: 10/02/2018 | | Medicine | e | sleep apnea) | | + +--------+ + + as of this encounter Visit Diagnoses + + | Diagnosis | + + | Pleural effusion - Primary | + + | Unspecified pleural effusion | + + | SHADE (obstructive sleep apnea) | + + | Obstructive sleep apnea (adult) (pediatric) | + + | Marijuana abuse | + + | Cannabis abuse, unspecified | + +
--- OUTSIDE RECORDS SUMMARY | ~2018-12-09 | XMS | Encounter Summary ---
Demographics + + + | Address | [address] | | | [place] [address] | + + + | Home Phone [...] | | | | | [place] [address] | | + + + + + | Thania Mallory | ECON | [address] | | | | | [place] [address] | | + + + + + | Deidra Weldon | ECON | [address] | | | | | [place] | | | | | [address] | | + + + + + Care Team Providers + +------+ + | Care Engraver Seals Name | Role | Phone | + [...] Mailcode: | | | | | | [address] | [address] | | | | | | [address] | [place] | | | | | | [place], | [place], [place] | | | | | | [place] | [address] | | | | | | [address] | Phone: | | | | | | Phone: | [phone] | | | | | | [phone] | | | | | | | Fax: | | | | | | | [phone] | | +--------+--------+ + + + + Encounter Details +--------+---------+ + + + | Date | Type | Department | Care Team | Description | +--------+---------+ + + + | 05/24/ | Office | Specialty Clinics | Sudhakar Joy | HSP | | 2017 | Visit | at [facility] [address] | DMD [address] | (Henoch-Schonlein | | | | [address] | [address] | purpura) nephritis | | | | Mailcode: [facility] | [place], [place] | (Primary Dx); Anemia | | | | [address] | [address]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 Discussed with [...] not be referred for transplant. Her adult pot filler could refer her to adult transplant when [...] MD [facility] [address] Mail code [facility] [place], [place] [id number] documented in this encounter Plan of Treatment +--------+ + + + + | Date | Type | Specialty | Care Team | Description | +--------+ + + + + | 05/04/ | Hospital | Adult Acute Care | El Starr MD | | | 2022 | Encounter | | [address] | | | | | | [place], [place] | | | | | | [address] | | | | | | [phone] | | | | | | | [...]
--- OUTSIDE RECORDS SUMMARY | ~2018-12-09 | XMS | Encounter Summary ---
Demographics + + + | Address | [address] | | | [place] [address] | + + + | Home Phone [...] | | | | | [place] [address] | | + + + + + | Thania Mallory | ECON | [address] | | | | | [place] [address] | | + + + + + | Deidra Weldon | ECON | [address] | | | | | [place] | | | | | [address] | | + + + + + Care Team Providers + +------+ + | Care Bmx Rider Name | Role | Phone | + [...] check-in on | | | | Rd [place], [place] | [place], [place] | psychosocial goals | | | | [address] | [address] | related to listing | | | | [phone] | | status) | +--------+ + + [...] Denise | | | | | | [place], [place] | | | | | | [address] | | | | | | [phone] | | | | | | | | +--------+ + + + + documented as of this encounter Visit Diagnoses Not on filedocumented in this encounter"
--- OUTSIDE RECORDS SUMMARY | ~2018-12-09 | XMS | Encounter Summary ---
Demographics + + + | Address | [address] | | | [place] [address] | + + + | Home Phone [...] | | | | | [place] [address] | | + + + + + | Thania Mallory | ECON | [address] | | | | | [place] [address] | | + + + + + | Deidra Weldon | ECON | [address] | | | | | [place] | | | | | [address] | | + + + + + Care Team Providers + +------+ + | Care Starbucks Clerk Name | Role | Phone | [...] | | | | | | [place], [place] | | | | | | [address] | | | | | | [phone] | | | | | | | | +--------+ + + + + documented as of this encounter Visit Diagnoses Not on filedocumented in this encounter"
--- OUTSIDE RECORDS SUMMARY | ~2018-12-09 | XMS | Encounter Summary ---
Demographics + + + | Address | [address] | | | [place] [address] | + + + | Home Phone [...] | | | | | [place] [address] | | + + + + + | Thania Mallory | ECON | [address] | | | | | [place] [address] | | + + + + + | Deidra Weldon | ECON | [address] | | | | | [place] | | | | | [address] | | + + + + + Care Team Providers + +------+ + | Care Satellite Communications Operator Name | Role | Phone [...] pt's living/support | | | | Rd [place], [place] | [place], [place] | situation) | | | | [address] | [address] | | | | | [phone] | | | +--------+ + + + [...] Denise | | | | | | [place] | | | | | | [address] | | | | | | [phone] | | | | | | | | +--------+ + + + + documented as of this encounter Visit Diagnoses Not on filedocumented in this encounter"
--- OUTSIDE RECORDS SUMMARY | ~2018-12-09 | XMS | Encounter Summary ---
Demographics + + + | Address | [address] | | | [place] [address] | + + + | Home Phone [...] | | | | | [place] [address] | | + + + + + | Thania Mallory | ECON | [address] | | | | | [place] [address] | | + + + + + | Deidra Weldon | ECON | [address] | | | | | [place] | | | | | [address] | | + + + + + Care Team Providers + +------+ + | Care Music Coordinator Name | Role | Phone | [...] Update | | | | [address] [facility] | [address] | | | | | [place], [place] | [place], [place] | | | | | [address] | [address] | | | | | [phone] | [phone] | | | | | | | [...] Denise | | | | | | [place] | | | | | | [address] | | | | | | [phone] | | | | | | | | +--------+ + + + + documented as of this encounter Visit Diagnoses Not on filedocumented in this encounter"
--- OUTSIDE RECORDS SUMMARY | ~2018-12-09 | XMS | Encounter Summary ---
Demographics + + + | Address | [address] | | | [place] [address] | + + + | Home Phone [...] | | | | | [place] [address] | | + + + + + | Thania Mallory | ECON | [address] | | | | | [place] [address] | | + + + + + | Deidra Weldon | ECON | [address] | | | | | [place] | | | | | [address] | | + + + + + Care Team Providers + +------+ + | Care Legal Director Name | Role | Phone | [...] Change (Close | | | | ANNAL[address] [facility] | [facility] | referral) | | | | Rd [place], [place] | [facility] [place] | | | | | [address] | [address] | | | | | [phone] | | | +--------+ + + + [...] [place] | | | | | | [address] | | | | | | [phone] | | | | | | | | +--------+ + + + + documented as of this encounter Visit Diagnoses Not on filedocumented in this encounter"
--- OUTSIDE RECORDS SUMMARY | ~2018-12-09 | XMS | Encounter Summary ---
Demographics + + + | Address | [address] | | | [place] [address] | + + + | Home Phone [...] | | | | | [place] [address] | | + + + + + | Thania Mallory | ECON | [address] | | | | | [place] [address] | | + + + + + | Deidra Weldon | ECON | [address] | | | | | [place] | | | | | [address] | | + + + + + Care Team Providers + +------+ + | Care Customer Assistance Representative Name | Role | Phone | [...] | lab/Provider | | | | [place], [place] | [place], [place] | updated) | | | | [address] | [address] | | | | | [phone] | [phone] | | | | | | | [...] Denise | | | | | | [place], [place] | | | | | | [address] | | | | | | [phone] | | | | | | | | +--------+ + + + + documented as of this encounter Visit Diagnoses Not on filedocumented in this encounter"
--- OUTSIDE RECORDS SUMMARY | ~2018-12-09 | XMS | Encounter Summary ---
Demographics + + + | Address | [address] | | | [place] [address] | + + + | Home Phone [...] | | | | | [place] [address] | | + + + + + | Thania Mallory | ECON | [address] | | | | | [place] [address] | | + + + + + | Deidra Weldon | ECON | [address] | | | | | [place] | | | | | [address] | | + + + + + Care Team Providers + +------+ + | Care Principal Developer Name | Role | Phone | [...] | Nephrology at | MD Emanuel [address] | Requested ([facility]) | | | | [place] | [address] | | | | | [facility] | [place], [place] | | | | | [address] | [address] | | | | | [address] Mailcode: | [phone] | | | | | [address] | | | | | | [place], [place] | | | | | | [address] | | | | | | [phone] | | | +--------+ + + + [...] Denise | | | | | | [place] | | | | | | [address] | | | | | | [phone] | | | | | | | | +--------+ + + + + documented as of this encounter Visit Diagnoses Not on filedocumented in this encounter"
--- OUTSIDE RECORDS SUMMARY | ~2018-12-09 | XMS | Encounter Summary ---
Demographics + + + | Address | [address] | | | [place] [address] | + + + | Home Phone [...] | | | | | [place] [address] | | + + + + + | Thania Mallory | ECON | [address] | | | | | [place] [address] | | + + + + + | Deidra Weldon | ECON | [address] | | | | | [place] | | | | | [address] | | + + + + + Care Team Providers + +------+ + | Care Edi Coordinator Name | Role | Phone | [...] Rd | | | | | [facility] | [place], [place] | | | | | [address] | [address] | | | | | [address] Mailcode: | [phone] | | | | | [address] | | | | | | [place], [place] | | | | | | [address] | | | | | | [phone] | | | +--------+ + + + [...] Denise | | | | | | [place], [place] | | | | | | [address] | | | | | | [phone] | | | | | | | [...] + + | [facility] - | [address] | [place] | [phone] | | [place] | | | | + + + + + documented in this encounter Visit Diagnoses Not on filedocumented in this encounter"
--- OUTSIDE RECORDS SUMMARY | ~2018-12-09 | XMS | Encounter Summary ---
Demographics + + + | Address | [address] | | | [place] [address] | + + + | Home Phone [...] | | | | | [place] [address] | | + + + + + | Thania Mallory | ECON | [address] | | | | | [place] [address] | | + + + + + | Deidra Weldon | ECON | [address] | | | | | [place] | | | | | [address] | | + + + + + Care Team Providers + +------+ + | Care Recycle Driver Name | Role | Phone | [...] | | 2012 | anned | [address] | | | | | | [address] | | | | | | [place], [place] | | | | | | [address] | | | +--------+ + + + [...] Denise | | | | | | [place], [place] | | | | | | [address] | | | | | | [phone] | | | | | | | | +--------+ + + + + documented as of this encounter Visit Diagnoses Not on filedocumented in this encounter"
--- OUTSIDE RECORDS SUMMARY | ~2018-12-09 | XMS | Encounter Summary ---
Demographics + + + | Address | [address] | | | [place] [address] | + + + | Home Phone [...] Author | [facility] | | | and Josephana | + + + | Organization | [facility] | | | and [...] Providers + +------+ + | Care Production Manager Name | Role | Phone | + +------+ + | Jonathan Alonso MD | PCP | | + +------+ + Encounter Details +--------+ + + + + | Date | Type | Department | Care Team | Description | +--------+ + + + + | 10/08/ | Orders Only | [facility] | Provider, | Systolic congestive | | 2019 | | SYSTEM GENERIC OP | MD [address] | heart failure (HCC) | | | | CONVERSION [address] | [place]. | | | | | [address] [place], [place] | [place] [address] | | | | | [address] | | | | | | [phone] | | | +--------+ + + + [...] [place]SON | | | | | | [place] [address] | | | | | | [phone] | | | | | | | [...]
--- OUTSIDE RECORDS SUMMARY | ~2018-12-09 | XMS | Encounter Summary ---
Demographics + + + | Address | [address] | | | [place] [address] | + + + | Home Phone [...] | | | | | [place] [address] | | + + + + + | Thania Mallory | ECON | [address] | | | | | [place] [address] | | + + + + + | Deidra Weldon | ECON | [address] | | | | | [place] | | | | | [address] | | + + + + + Care Team Providers + +------+ + | Care Well Control Instructor Name | Role | Phone | [...] - Renal | | | | [facility] | [facility] | | | | | Rd [place], [place] | [place], [place] | | | | | [address] | [address] | | | | | [phone] | | | +--------+ + + + [...] Denise | | | | | | [place], [place] | | | | | | [address] | | | | | | [phone] | | | | | | | [...]
--- OUTSIDE RECORDS SUMMARY | ~2018-12-09 | XMS | Encounter Summary ---
Demographics + + + | Address | [address] | | | [place] [address] | + + + | Home Phone [...] | | | | | [place] [address] | | + + + + + | Thania Mallory | ECON | [address] | | | | | [place] [address] | | + + + + + | Deidra Weldon | ECON | [address] | | | | | [place] | | | | | [address] | | + + + + + Care Team Providers + +------+ + | Care Finish Mixer Name | Role | Phone | [...] (pt | | | | [address] [facility] | [facility] [address] | potential | | | | Rd [place], [place] | [place], [place] | donor/checking in | | | | [address] | [address] | with SW) | | | | [phone] | | | +--------+ + + + [...] [facility] | | | | | | [address] | | | | | | [phone] | | | | | | | | +--------+ + + + + documented as of this encounter Visit Diagnoses Not on filedocumented in this encounter"
--- OUTSIDE RECORDS SUMMARY | ~2018-12-09 | XMS | Encounter Summary ---
Demographics + + + | Address | [address] | | | [place] [address] | + + + | Home Phone [...] | | | | | [place] [address] | | + + + + + | Thania Mallory | ECON | [address] | | | | | [place] [address] | | + + + + + | Deidra Weldon | ECON | [address] | | | | | [place] | | | | | [address] | | + + + + + Care Team Providers + +------+ + | Care Ciaio Lumite Injector Name | Role | Phone | + [...] 3rd Floor | [address] | Family sheet) | | | | [address] | [address] | | | | | Caro Chan Mailcode: | [place], [place] | | | | | [address] Physician's | [address] | | | | | [address] | [phone] | | | | | [place], [place] | | | | | | [address] | | | | | | [phone] | | | +--------+ + + + [...] Denise | | | | | | [place] | | | | | | [address] | | | | | | [phone] | | | | | | | | +--------+ + + + + documented as of this encounter Visit Diagnoses Not on filedocumented in this encounter"
--- OUTSIDE RECORDS SUMMARY | ~2018-12-09 | XMS | Encounter Summary ---
Demographics + + + | Address | [address] | | | [place] [address] | + + + | Home Phone [...] | | | | | [place] [address] | | + + + + + | Thania Mallory | ECON | [address] | | | | | [place] [address] | | + + + + + | Deidra Weldon | ECON | [address] | | | | | [place] | | | | | [address] | | + + + + + Care Team Providers + +------+ + | Care Sample Book Maker Name | Role | Phone | [...] | | | | | Keven | [address] | | | | | | Hospital | Rd Mailcode: | | | | | | [address] | [facility] | | | | | | [address] | [place] | | | | | | [place], | [place], [place] | | | | | | [place] | [address] | | | | | | [address] | Phone: | | | | | | Phone: | [phone] | | | | | | [phone] | | | | | | | Fax: | | | | | | | [phone] | | +--------+--------+ + + + + Encounter Details +--------+---------+ + + + | Date | Type | Department | Care Team | Description | +--------+---------+ + + + | 08/17/ | Office | Specialty Clinics | Sudhakar Joy | Anemia of chronic | | 2016 | Visit | at 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 She has collected enough money to get [...] The next appointment is: in six months. Sduhakar Joy MD [facility]phrology [facility]pert[facility] Services [address] Mail code [facility] [place], [place] [address] documented in this encounter Plan of Treatment +--------+ + + + + | Date | Type | Specialty | Care Team | Description | +--------+ + + + + | 05/04/ | Hospital | Adult Acute Care | El Starr MD | | | 2022 | Encounter | | [address] | | | | | | [place], [place] | | | | | | [address] | | | | | | [phone] | | | | | | | [...]
--- OUTSIDE RECORDS SUMMARY | ~2018-12-09 | XMS | Encounter Summary ---
Demographics + + + | Address | [address] | | | [place] [address] | + + + | Home Phone [...] | | | | | [place] [address] | | + + + + + | Thania Mallory | ECON | [address] | | | | | [place] [address] | | + + + + + | Deidra Weldon | ECON | [address] | | | | | [place] | | | | | [address] | | + + + + + Care Team Providers + +------+ + | Care Cement Patcher Name | Role | Phone | [...] Transplant | | | | [address] [facility] | [address] | Evaluation | | | | Rd [place], [place] | [place], [place] | (pre-listing | | | | [address] | [address] | pediatric [place] SW | | | | [phone] | | update) | +--------+ + + [...] Denise | | | | | | [place] | | | | | | [address] | | | | | | [phone] | | | | | | | | +--------+ + + + + documented as of this encounter Visit Diagnoses Not on filedocumented in this encounter"
--- OUTSIDE RECORDS SUMMARY | ~2018-12-09 | XMS | Encounter Summary ---
Demographics + + + | Address | [address] | | | [place] [address] | + + + | Home Phone [...] | | | | | [place] [address] | | + + + + + | Thania Mallory | ECON | [address] | | | | | [place] [address] | | + + + + + | Deidra Weldon | ECON | [address] | | | | | [place] | | | | | [address] | | + + + + + Care Team Providers + +------+ + | Care Light Fixture Servicer Name | Role | Phone | [...] 2005 | Registratio | [address] | [phone] | | | | n | Rd Mailcode: RPB07 | | | | | | [place], [place] | | | | | | [address] | | | | | | [phone] | | | +--------+ + + + [...] | | | | | [place], [place] | | | | | | [address] | | | | | | [phone] | | | | | | | [...] | [facility] | | | PATHOLOGY | [facility] | | DEPARTMENT | | [...] Kt | | | | | | M.DSujit/PathologistT:02/02/ [...] | | | mediumfrom Dr. De La Feunte | | | | | | Sudarshan Joy | | | | | | [facility], | | | | | | [place],labeled tonto apache | | | | | | kidney [...] wall | | | | | | idecsesdW9r: | | | | | | NegativeFibrinogen: [...] | + + + + + | [facility] | [address] | [place] [address] | | | PATHOLOGY | [address] | | | + + + + + | [facility] | [address] | [place] [address] | | | PATHOLOGY | [address] | | | + + + + + documented in this encounter Visit Diagnoses Not on filedocumented in this encounter"
--- OUTSIDE RECORDS SUMMARY | ~2018-12-09 | XMS | Encounter Summary ---
Demographics + + + | Address | [address] | | | [place] [address] | + + + | Home Phone [...] | | | | | [place] [address] | | + + + + + | Thania Mallory | ECON | [address] | | | | | [place] [address] | | + + + + + | Deidra Weldon | ECON | [address] | | | | | [place] | | | | | [address] | | + + + + + [...] | | Nephrology at | MD Emanuel [address] | | | | | [place] | [address] | | | | | [facility] | [place], [place] | | | | | [address] | [address] | | | | | [address] Mailcode: | [phone] | | | | | [address] | | | | | | [place], [place] | | | | | | [address] | | | | | | [phone] | | | +--------+ + + + [...] Denise | | | | | | [place], [place] | | | | | | [address] | | | | | | [phone] | | | | | | | [...]
--- OUTSIDE RECORDS SUMMARY | ~2018-12-09 | XMS | Encounter Summary ---
Demographics + + + | Address | [address] | | | [place] [address] | + + + | Home Phone [...] | | | | | [place] [address] | | + + + + + | Thania Mallory | ECON | [address] | | | | | [place] [address] | | + + + + + | Deidra Weldon | ECON | [address] | | | | | [place] | | | | | [address] | | + + + + + Care Team Providers + +------+ + | Care Database Development Project Manager Name | Role | Phone [...] Rd | | | | | | [place], [place] | | | | | | [address] | | | +--------+ + + + [...] Denise | | | | | | [place], [place] | | | | | | [address] | | | | | | [phone] | | | | | | | | +--------+ + + + + documented as of this encounter Visit Diagnoses Not [facility]"
--- OUTSIDE RECORDS SUMMARY | ~2018-12-09 | XMS | Encounter Summary ---
Demographics + + + | Address | [address] | | | [place] [address] | + + + | Home Phone [...] | | | | | [place] [address] | | + + + + + | Thania Mallory | ECON | [address] | | | | | [place] [address] | | + + + + + | Deidra Weldon | ECON | [address] | | | | | [place] | | | | | [address] | | + + + + + Care Team Providers + +------+ + | Care Order Editor Name | Role | Phone | + [...] | Decision | | | | [facility] | [facility] | | | | | Rd [place], [place] | [place], [place] | | | | | [address] | [address] | | | | | [phone] | | | +--------+ + + + [...] [facility] | | | | | | [address] | | | | | | [phone] | | | | | | | | +--------+ + + + + documented as of this encounter Visit Diagnoses Not on filedocumented in this encounter"
--- OUTSIDE RECORDS SUMMARY | ~2018-12-09 | XMS | Encounter Summary ---
Demographics + + + | Address | [address] | | | [place] [address] | + + + | Home Phone [...] | | | | | [place] [address] | | + + + + + | Thania Mallory | ECON | [address] | | | | | [place] [address] | | + + + + + | Deidra Louise | ECON | [address] | | | | | [place] | | | | | [address] | | + + + + + Care Team Providers + +------+ + | Care Medical Librarian Name | Role | Phone | [...] | purpura | [address] | [facility] [address] | | | | | (HCC) [facility] | [address] | [address] | | | | | (Amelie | [address] | [address] | | | | | nlein | [place], [place] | Mailcode: | | | | | purpura) | [address] | [facility] | | | | | nephritis | Phone: | Doerarielaecher | | | | | (HCC) | [phone] | [place], [place] | | | | | Hemodialysis | Fax: | [address] | | | | | status | [phone] | Phone: | | | | | (HCC) | | [phone] | | | | | Chronic | | Fax: | | | | | kidney | | [phone] | | | | | disease, | | | | | | | stage V | | | | | | | ([facility]) | | | | | [...] | Appointment | | | | [address] [facility] | [facility] | | | | | Rd [place], [place] | [place], [place] | | | | | [address] | [address] | | | | | [phone] | | | +--------+ + + + [...] Denise | | | | | | [place], [place] | | | | | | [address] | | | | | | [phone] | | | | | | | | +--------+ + + + + + +------+--------+ + + | Name | Type | Priori | Associated Diagnoses | Order Schedule | | | | ty | | | + +------+--------+ + + | 12 LEAD ECG | ECG | Routin | Allergic purpura- | Ordered: 01/07/2015 | | | | e | MEDICARE [address] 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 | | | | | | Hemodialysis status | | | | | | ([facility]) Chronic | | | | | | kidney disease, | | | | | | stage V ([facility]) | | + +------+--------+ + [...] BSA | | | | | | (MESHOPPEN Z | | | | | | [...] 2:35 PM PST Echocardiography Laboratory | | [address] | | [place] [address] | | ; | | [id number] | | | | Transthoracic Echocardiogram Report | | | | | | NAME: DARA LOUISE Study Date: 01/20/2015 1:18:29 PM | | Order #: [id number] ACC #: [id number] | | | | | | : [...] on 01/20/2015 at 2:35:17 PM | | Principal Engineer: YARITZA KLINE RD | | | | | | cc: | | | | | | Modes utilized | | TTE 24742; Spectral Doppler 40221; Color flow Doppler 49607; | | | | | | | | Final | + + + + + + + | Performing | Address | City/State/Zipcode | Phone Number | | Organization | | | | + + + + + | [facility] | [address] | [place], [place] | | | CARDIOLOGY | [address] | [address] | | + + + + + [...] | + + + + + | [facility] | [address] | [place] [address] | | | SERVICES, SPECIAL | PARK [...] + + + | TILA | [address] | [place] [address] | | | DIAGNOSTIC | [address] [...] + | [facility] - | [address] | [place] [address] | | | [facility] | | | | + [...] + | [facility] - | [address] | [place] [address] | | | [place] | | | [...] + | [facility] - | [address] | [place] [address] | | | [place] | | | | + + + [...] + | [facility] | [address] | [place] [address] | | | [place] | | | | + + + [...] by | | | | | | [address] | | | | | | Pippa [address], [facility],[place] | | | | | | [address] | | | | | | [phone][employer]. | | | | | | Faisal [...] [facility] | [address] | [place], [place] | | | UN[facility] | | [address] | | + + + + + [...] | + + + + + | [facility] - | [address] | [place] [address] | | | [place] | | | [...] by | | | | | | [address] | | | | | | Pippa Rajendra, [facility],[place] | | | | | | [address] | | | | | | [phone].[employer]. | | | | | | Faisal [...] [facility] | [address] | [place], [place] | | | [facility] | | [address] | | + + + + + [...] [facility] | [address] | [place] [address] | | | SERVICES, CORE | PARK [...] + + + + + | [facility] | [address] | [place] [address] | | | SERVICES, HOMERO | LONG [...] | + + + + + | [facility] | [address] | [place] [address] | | | RIKY, CORE | [address] | | | + + + + + MAGNESIUM, PLASMA (01/20/2015 9:59 AM PST) + +-------+ + + + | Component | Value | Ref Range | Performed | Pathologist | | | | | At | Signature | + +-------+ + + + | MAGNESIUM,P | 2.3 | 1.8 - 2.5 mg/dL | [facility] | | | LEONILA | | | [...] [facility] | [address] | [place] [address] | | | SERVICES, CORE | PARK [...] + + + + + | [facility] | [address] [facility] [facility] [facility] [address] | [place] [address] | | | SERVICES, CORE | LONG [...] | | | LABORATORY | | | [place] | | | SERVICES, | | | [...] [facility] | [address] | [place] [address] | | | SERVICES, CORE | PARK [...]
--- OUTSIDE RECORDS SUMMARY | ~2018-12-09 | XMS | Encounter Summary ---
Demographics + + + | Address | [address] | | | [place] [address] | + + + | Home Phone [...] | | | | | [place] [address] | | + + + + + | Thania Mallory | ECON | [address] | | | | | [place] [address] | | + + + + + | Deidra Weldon | ECON | [address] | | | | | [place] | | | | | [address] | | + + + + + Care Team Providers + +------+ + | Care Sustainability Engineer Name | Role | Phone | [...] Mailcode: | | | | | | [address] | [facility] | | | | | | [address] | [place] | | | | | | [place], | [place], [place] | | | | | | [place] | [address] | | | | | | [address] | Phone: | | | | | | Phone: | [phone] | | | | | | [phone] | | | | | | | Fax: | | | | | | | [phone] | | +--------+--------+ + + + + Encounter Details +--------+---------+ + + + | Date | Type | Department | Care Team | Description | +--------+---------+ + + + | 05/11/ | Office | Specialty Clinics | Sudhakar Joy | HSP | | 2016 | Visit | at [facility] [address] | [address], [address] | (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
--- OUTSIDE RECORDS SUMMARY | ~2018-12-09 | XMS | Encounter Summary ---
Demographics + + + | Address | [address] | | | [place] [address] | + + + | Home Phone [...] + | Author | [facility] (Historical as of | | | 10-20-18) | + + + | Organization | [facility] (Historical as of | | | 10-20-18) [...] Team Providers + +------+ + | Care Grooving Machine Operator Name | Role | Phone [...] | | Internal | Diagnoses | | [facility] 4th | | | | Medicine | SOB | | [address] | | | | | (shortness | | [address] | | | | | of breath) | | [address] | | | | | Pleural | | [place], [place] | | | | | effusion on | | [address] Phone: | | | | | right ESRD | | [phone] | | | | | needing | | Fax: | | | | | dialysis | | [phone] | | | | | (HCC) | | | +--------+--------+ + + + + Encounter Details +--------+ + + + + | Date | Type | Department | Care Team | Description | +--------+ + + + + | 10/17/ | Hospital | [facility] | Vivek Teran, | SOB (shortness of | | 2019 - | Encounter | [facility] Center 4th | MD [address] | breath) (Primary | | | | [address] | [place] [address] | Dx); Pleural | | 10/20/ | | [address] | [phone] | effusion on right; | | 2019 | | [place] [address] | | ESRD needing | | | | [phone] | Nikita, | dialysis ([facility]); End | | | | | MD [address] | stage renal disease | | | | | [address] | (HCC) | | | | | [place] [address] | | | | | | [phone] | | | | | | | | | | | | Gerber Pearson MD | | | | | | [address] | | | | | | [place] [address] | | | | | | [phone] | | | | | | | [...] note may be different from the original. [facility] Service: NEPHROLOGY Progress Note Dara Weldon 23 y.o. [id number] female TIEN NICHOLSON 23-year-old female with [...] AV FISTULA; Surgeon: Rik Simon MD; Location: [facility] OR; Service: Vascula r; Laterality: Left; cephalic AV FISTULA REPAIR Left 03/07/2014 Procedure: AV FISTULA - GRAFT REPAIR/REVISION; Surgeon: Rik Simon MD; Location: [facility] IN OR; Service: Vascular; Laterality: Left; DECLOT GRAFT Left 03/07/2014 Procedure: GRAFT - DECLOT; Surgeon: Rik Simon MD; Location: [facility] OR; Service: Vas cular; Laterality: Left; DIALYSIS FISTULA CREATION N/A 04/08/2014 Procedure: DIALYSIS CATHETER - INSERTION; Surgeon: Rik Simon MD; Location: [facility] OR ; Service: Vascular; Laterality: N/A; tunneled catheter LAPAROSCOPIC PERITONEAL DIALYSIS CATHETER INSERTION x2 LAPAROSCOPIC PERITONEAL DIALYSIS CATHETER INSERTION Right 07/2013 current dialysis access MWF dialysis RENAL BIOPSY Left 2003 SUPERFICIALIZATION OF AV FISTULA Left 06/24/2014 Procedure: AV FISTULA - SUPERFICIALIZATION; Surgeon: Rik Simon MD; Location: [facility] OR; Service: Vascular; Laterality: Left; [...] Social History Narrative She lives in [facility]. She does not work. She has [...] ral space is punctured with an 5 Bahraini [employer] centesis catheter. Fluid is aspirated without complication. [...] 1 VIEW (10/17/2018); CHEST TWO V IEWS [id number] (10/17/2018); FINDINGS: Compared to the prior examination [...] MR, severe TR.severe pulmonary hypertens ion Chest z-tbt-qutomgybskxm with pulmonary edema and large right pleural [...] earlier and charting completed later Dictation software, TESARO, used which may contain error for similar sounding words even af ter review. Personal communication requested for any clarification. Gerber Pearson MD - 10/19/2018 7:48 AM PDTFormatting of this note may be different from the original. [facility] Service: Hospitalist Progress Note [...] with dyspnea Patient was recently discharged from [facility] on 08/23/2018. For full note, please see discha rge summary from hospitalist. In summary, the patient was admitted for noncardiogenic pulmo nary edema after thoracentesis. At that point, prior to admission, she was seen at the [facility] at [facility] in [place] on 08/21 where she underwent right th [...] BUN 90 on admission -History of a [place] Schnlein purpura -Last hemodialysis approximately 2 weeks [...] may be diffe rent from the original. [facility] Service: Hospitalist Progress Note [...] with dyspnea Patient was recently discharged from [facility] on 08/23/2018. For full note, please see discha rge summary from hospitalist. In summary, the patient was admitted for noncardiogenic pulmo nary edema after thoracentesis. At that point, prior to admission, she was seen at the [facility] department at [facility] in [place] on 08/21 where she underwent right th [...] BUN 90 on admission -History of a [place] Schnlein purpura -Last hemodialysis approximately 2 weeks [...] note may be different from the original. [facility] Service: NEPHROLOGY Progress Note Dara Weldon 23 y.o. [id number] female [facility] Day: LOS: 1 day 23-year-old female [...] AV FISTULA; Surgeon: Rik Simon MD; Location: [facility] OR; Service: Vascula r; Laterality: Left; cephalic AV FISTULA REPAIR Left 03/07/2014 Procedure: AV FISTULA - GRAFT REPAIR/REVISION; Surgeon: Rik Simon MD; Location: [facility] OR; Service: Vascular; Laterality: Left; DECLOT GRAFT Left 03/07/2014 Procedure: GRAFT - DECLOT; Surgeon: Rik Simon MD; Location: [facility]; Service: Vas cular; Laterality: Left; DIALYSIS FISTULA CREATION N/A 04/08/2014 Procedure: DIALYSIS CATHETER - INSERTION; Surgeon: Rik Simon MD; Location: [facility] ; Service: Vascular; Laterality: N/A; tunneled catheter LAPAROSCOPIC PERITONEAL DIALYSIS CATHETER INSERTION x2 LAPAROSCOPIC PERITONEAL DIALYSIS CATHETER INSERTION Right 07/2013 current dialysis access MWF dialysis RENAL BIOPSY Left 2003 SUPERFICIALIZATION OF AV FISTULA Left 06/24/2014 Procedure: AV FISTULA - SUPERFICIALIZATION; Surgeon: Rik Simon MD; Location: [facility] OR; Service: Vascular; Laterality: Left; [...] Social History Narrative She lives in [facility]. She does not work. She has [...] QTC Calculation (Bezet) 469 ms Calculated P [place] 46 degrees Calculated R [place] 127 degrees Calculated T [place]ken[place] 94 degrees Diagnosis Normal sinus rhythm Right [...] MR, severe TR.severe pulmonary hypertens ion Chest s-fyt-jzihilquwlwz with pulmonary edema and large right pleural [...] earlier and charting completed later Dictation software, TESARO, used which may contain error for similar sounding words even af ter review. Personal communication requested for any clarification. Gerber Pearson MD - 10/17/2018 7:17 AM PDTFormatting of this note may be different from the original. [facility] Service: Hospitalist Progress Note [...] with dyspnea Patient was recently discharged from [facility] on 08/23/2018. For full note, please see discha rge summary from hospitalist. In summary, the patient was admitted for noncardiogenic pulmo nary edema after thoracentesis. At that point, prior to admission, she was seen at the [facility] department at [facility] in [place] on 08/21 where she underwent right th [...] the case over the phone with patient's cook apprentice Dr. Mahmood, recommends medi oly management and [...] creatinine 14, BUN 90 -History of a [place] Schnlein purpura -Last hemodialysis approximately 2 weeks [...] [address] | | | | | | [place] [address] | | | | | | [phone] | | | | | | | [...] | + +--------+ + + + | [facility] CARD PANEL W/O | STAT | 10/17/2018 [...] (H) | 0.50 - 1.00 mg/dL | [facility] | | | | | LABORATORY | + + + + + | BUN/CREAT | 4 | | [facility] | | | | | LABORATORY | [...] | | | | | performed at [facility], [facility] [address] | | | | | [facility], | | | | | [place] [address] | | | + + + + + + + | Specimen | + + | Blood | + + + + + + + | Performing | Address | City/State/Zipcode | Phone Number | | Organization | | | | + + + + + | [facility] | [address] | [place] [address] | [phone] | | LABORATORY | Blvd[address] | | [...] CHEST 1 VIEW (10/17/2018); CHEST TWO VIEWS [id number] | | | (10/17/2018); FINDINGS: Compared to [...] VIEW | | (10/17/2018); CHEST TWO VIEWS [id number] (10/17/2018); | | FINDINGS: | | Compared [...] + + | [facility] | [address] | [place] [address] | | + + + + + [...] pleural space is punctured with an 5 Bahraini [employer] centesis | | | catheter. Fluid is [...] pleural space is punctured with an 5 Bahraini [employer] | | centesis catheter. Fluid is [...] + + + + | [facility] | [address] | [place] [address] | | + + + + + [...] + + + + | Calculated P Ankeny | 46 | degrees | [facility] | + + + + + | Calculated R Ankeny | 127 | degrees | [facility] | + + + + + | Calculated T [place] | 94 | degrees | [facility] [...] | | | | | leadsConfirmed by Nri | | | | | Corinne ALMEIDA (111) on | | | | | 10/18/2018 9:02:49 PM | | | + + + + + + + + + + | Performing | Address | City/State/Zipcode | Phone Number | | Organization | | | | + + + + + | [facility] | [address] | [place] [address] | | + + + + + [...] the | | | | | MDRD IDPR traceable | | | | | equation.Testing | | | | | performed at [facility], [address] | | | | | [facility], | | | | | [place] [address] | | | + + + + + + + | Specimen | + + | Blood | + + + + + + + | Performing | Address | City/State/Zipcode | Phone Number | | Organization | | | | + + + + + | [facility] | [address] | [place] [address] | [phone] | | LABORATORY | Blvd[address] | | | + + + + + Magnesium (10/18/2018 5:44 AM) + + + + + | Component | Value | Ref Range | Performed At | + + + + + | MAGNESIUM | 2.4Comment: Testing | 1.7 - 2.4 mg/dL | [facility] | | | performed at [facility], [address] | | LABORATORY | | | [address], | | | | | [place] [address] | | | + + + + + + + | Specimen | + + | Blood | + + + + + + + | Performing | Address | City/State/Zipcode | Phone Number | | Organization | | | | + + + + + | [facility] | [address] | [place] [address] | [phone] | | LABORATORY | Blvd. | | [...] performed | | | | | at [facility], [address] | | | | | [facility], | | | | | [place] [address] | | | | |Testing performed at [facility], [address] [place] [address] | | | | | | | | + + + + + + + | Specimen | + + | Blood | + + + + + + + | Performing | Address | City/State/Zipcode | Phone Number | | Organization | | | | + + + + + | [facility] | [address] | [place] [address] | [phone] | | LABORATORY | Blvd. | | | + + + + + Troponin I (10/17/2018 6:05 PM) + + + + + | Component | Value | Ref Range | Performed At | + + + + + | TROPONIN I | 0.175 (H)Comment: 0.04 | 0.00 - 0.04 ng/mL | [facility] | | | ng/mL or [...] performed at | | | | | [facility];[address] | | | | | [place] [address] | | | + + + + + + + | Specimen | + + | Blood | + + + + + + + | Performing | Address | City/State/Zipcode | Phone Number | | Organization | | | | + + + + + | [facility] | [address] | [place] [address] | | + + + + + CPK (10/17/2018 6:05 PM) + + + + + | Component | Value | Ref Range | Performed At | + + + + + | CPK | 443 (H)Comment: Testing | 30 - 240 U/L | [facility] | | | performed at [facility];[address];[place] | | | | | [address] | | | + + + + + + + | Specimen | + + | Blood | + + + + + + + | Performing | Address | City/State/Zipcode | Phone Number | | Organization | | | | + + + + + | [facility] | [address] | [place] [address] | | + + + + + Troponin I (10/17/2018 11:59 AM) + + + + + | Component | Value | Ref Range | Performed At | + + + + + | TROPONIN I | 0.119 (H)Comment: 0.04 | 0.00 - 0.04 ng/mL | [facility] | | | ng/mL or [...] performed at | | | | | [facility];[address] [place] [address] | | | | | [facility];[place] [address] | | | + + + + + + + | Specimen | + + | Blood | + + + + + + + | Performing | Address | City/State/Zipcode | Phone Number | | Organization | | | | + + + + + | [facility] | [address] | [place] [address] | | + + + + + CPK (10/17/2018 11:59 AM) + + + + + | Component | Value | Ref Range | Performed At | + + + + + | CPK | 623 (H)Comment: Testing | 30 - 240 U/L | [facility] | | | performed at [facility];[address] | [address];[place] | | | | | [address] | | | + + + + + + + | Specimen | + + | Blood | + + + + + + + | Performing | Address | City/State/Zipcode | Phone Number | | Organization | | | | + + + + + | [facility] | [address] | [place] [address] | | + + + + + Protime-INR (10/17/2018 8:10 AM) + + + + + | Component | Value | Ref Range | Performed At | + + + + + | INR | 1.2Comment: REFERENCE | | [facility] | | | RANGE:0.9 - [...] [facility];[address] | | [address];[place] | | | | | [address] | | | + + + + + + + | Specimen | + + | Blood | + + + + + + + | Performing | Address | City/State/Zipcode | Phone Number | | Organization | | | | + + + + + | [facility] | [address] | [place] [address] | | + + + + + [...] [facility] | [address] | [place] [address] | | + + + + + [...] + + + + | Calculated P Ankeny | 33 | degrees | [facility] | + + + + + | Calculated R Ankeny | -22 | degrees | [facility] | + + + + + | Calculated T [place] | 92 | degrees | [facility] [...] -COMPUTER (500), | | | | | editor sound Daniela Esquivel | | | | | (18) on 10/17/2018 | | | | | 9:07:21 AM | | | + + + + + + + + + + | Performing | Address | City/State/Zipcode | Phone Number | | Organization | | | | + + + + + | [facility] | [address] | [place] [address] | | + + + + + Brain natriuretic peptide (10/17/2018 3:49 AM) + + + + + | Component | Value | Ref Range | Performed At | + + + + + | BRAIN NATRIURETIC | 1,151.26 (H)Comment: | 0 - 100 pg/mL | [facility] | | PEPTIDE | Testing performed at | | | | | [facility];[address] | | | | | [address];[place] [address] | | | + + + + + + + + + + | Performing | Address | City/State/Zipcode | Phone Number | | Organization | | | | + + + + + | [facility] | [address] | [place] [address] | | + + + + + Troponin I, Lab (10/17/2018 3:49 AM) + + + + + | Component | Value | Ref Range | Performed At | + + + + + | TROPONIN I | 0.151 (H)Comment: 0.04 | 0.00 - 0.04 ng/mL | [facility] | | | ng/mL or [...] performed at | | | | | [facility];[address] [place] [address] | | | | | [facility];[place] [address] | | | + + + + + + + | Specimen | + + | Blood | + + + + + + + | Performing | Address | City/State/Zipcode | Phone Number | | Organization | | | | + + + + + | [facility] | [address] | [place] [address] | | + + + + + Cardiac Panel (10/17/2018 3:49 AM) + + + + + | Component | Value | Ref Range | Performed At | + + + + + | WBC | 6.63 | 3.80 - 11.00 K/uL | [facility] | + + + + + | RBC | 3.07 (L) | 3.70 - 5.10 M/uL | [facility] | + + + + + | HGB | 10.9 (L) | 11.3 - 15.5 g/dL | [facility] | + + + + + | HCT | 32.7 (L) | 34.0 - 46.0 % | [facility] | + + + + + | MCV | 106.7 (H) | 80.0 - 100.0 fl | [facility] | + + + + + | MCH | 35.6 (H) | 27.0 - 34.0 pg | [facility] | + + + + + | MCHC | 33.4 | 32.0 - 35.5 g/dL | [facility] | + + + + + | RDW SD | 56.4 (H) | 37 - 53 fl | [facility] | + + + + + | PLT | 158 | 150 - 400 K/uL | [facility] | + + + + + | MPV | 10.2 | fl | [facility] | + + + + + [...] 104 | 99 - 109 mmol/L | [facility] | + + + + + | CO2 | 17 (L) | 23 - 32 mmol/L | [facility] | + + + + + | ANION GAP AGAP | 27 (H) | 5 - 20 mmol/L | [facility] | + + + + + | GLUCOSE | 91 | 65 - 99 mg/dL | [facility] | + + + + + [...] 2.5 | 1.3 - 4.9 g/dL | [facility] | + + + + + | A/G | 1.6 | 1.0 - 2.4 | [facility] | + + + + + | TBIL | 0.6 | 0.1 - 1.5 mg/dL | [facility] | + + + + + | ALK PHOS | 85 | 35 - 115 U/L | [facility] | + + + + + | AST | 40 | 10 - 45 U/L | [facility] | + + + + + | ALT | 31 | 10 - 65 U/L | [facility] | + + + + + | EGFR | 3 (L)Comment: GFR <60: | >60 mL/min/1.73m2 | [facility] | | | CHRONIC KIDNEY [...] SLT | 30 - 240 U/L | [facility] | | | HEMOLYSIS | | | + + + + + | INR | 1.2Comment: REFERENCE | | [facility] | | | RANGE:0.9 - [...] 23 | 23 - 32 seconds | [facility] | + + + + + | MMB | 17.8 (H) | 0.5 - 3.6 ng/mL | [facility] | + + + + + | CK-MB Index | UNABLE TO | | [facility] | | | CALCULATEComment: | | | | | Testing performed at | | | | | [facility];[address] | | | | | [address];[place] [address] | | | + + + + + + + + + + | Performing | Address | City/State/Zipcode | Phone Number | | Organization | | | | + + + + + | [facility] | [address] | [place] [address] | | + + + + + ED INFORMATION EXCHANGE (10/17/2018 1:10 AM) + + + | Narrative | Performed At | + + + | [id number] Criteria Met Care | ED | | Guidelines in 2 in 2 Security and Safety No | INFORMATION | | recent Security Events currently on file ED Care Guidelines There | EXCHANGE | | are currently no ED Care Guidelines for this patient. Please check | | | your facility's medical records system. Care History | | | Medical/Surgical 05/28/18 12:[address] [facility] | | | PATIENT HAS AN APT WITH PCP DR NICHOLSON ON 09/11/18. | | | PATIENT OPTIMIZATION ENGINEER- DR [phone] Patient is | | | currently established with [facility]. If patient is seen in | | | the ED during business hours. Please contact CHWs at [facility] | | | [facility]. Care Recommendation: This patient has had [...] | | mo.) Facility Visits Low Acuity [facility] 4 0 | | | [facility] 12 0 Total 16 0 Note: [...] | or Chief Complaint Oct 17, 2018 [facility] | | | Emergency Oct 16, 2018 [facility] [place] | | | Emergency Chief Complaint: EXCESS FLUID Aug 20, [address] | | | [facility] [place] Emergency Dependence on renal dialysis | | | Chronic kidney disease, unspecified Allergy status to | | | other drugs, medicaments and biological substances status | | | Chronic pulmonary edema Other exterminator helper termite (current) drug therapy | | | Allergy status to narcotic agent status Dyspnea, | | | unspecified Radiographic dye allergy status Aug 13, 2018 | | | [facility] [place] Emergency Allergy status to | | | other drugs, medicaments and biological substances status | | | Pleural effusion, not elsewhere classified End stage renal | | | disease Allergy status to narcotic agent status | | | Hyperkalemia Other specified abnormalities of plasma proteins | | | Other fci (current) drug therapy Radiographic dye | | | allergy status Dependence on renal dialysis Chest pain, | | | unspecified Aug 13, 2018 [facility] | | | Emergency July 18, 2018 [facility] | | | Emergency Cough Pneumonia Hypoxemia [...] dye allergy status | | | Other fci (current) drug therapy Jun 12, 2018 [facility] | | | [facility] [place] Emergency Shortness of breath | | | Fluid overload, unspecified Hyperkalemia Radiographic | | | dye allergy status Allergy status to narcotic agent status | | | Other exterminator helper termite (current) drug therapy Allergy status to | [...] | Personal history of nicotine dependence Other fci | | | (current) drug therapy residential (current) use of opiate | | | analgesic Recent Inpatient Visit Summary Date Facility | | | [facility] State Type Diagnoses or Chief Complaint Aug 20, 2018 [facility] | | | [facility] General Medicine Pleural Effusion | | | Chronic pulmonary edema July 18, 2018 [facility] | | | [facility] General Medicine Hypoxemia Personal history | | | of other diseases of urinary system Fever, unspecified | | | Pleural effusion, not elsewhere classified End stage renal | | | disease Dependence on renal dialysis Anemia in chronic | | | kidney disease Pulmonary hypertension, unspecified | | | Chronic right heart failure May 26, 2018 [facility] | | | [facility] General Medicine Acute respiratory distress | [...] has registered | | | at the [facility] Emergency Department For more | | | information visit: | | | [email or web address] | | | [email or web address] PLEASE NOTE: 1. [...] | | completeness of information provided. 2019 [employer] | | | [employer] - [email or web address] | | + + + + + | Procedure Note | + + | Interface, Lab - 10/17/2018 1:12 AM PDT Formatting of this note may be different | | from the original.[id number] Met Care Guidelines 10 in | | 12 2 in 2Security and SafetyNo recent Security Events currently on fileED Care | | GuidelinesThere are currently no ED Care Guidelines for this patient. Please check your | | facility's medical records system.Care HistoryMedical/Surgical05/28/18 12:00 AM [facility]. | [facility] PATIENT HAS AN APT WITH PCP DR NICHOLSON ON 09/11/18. PATIENT | | OPTIMIZATION ENGINEER- DR [phone] Patient is currently established with | [facility]. If patient is seen in the ED during business hours. Please contact CHWs | | at [facility].Care Recommendation:This patient has had 5 or more [...] [facility] | | Center [address] [facility] 12 0 Total 16 0 Note: [...] Chief | | Complaint [facility] [place] Emergency Oct 16, [address] | | [facility] [place] Emergency Chief Complaint: EXCESS FLUID Aug 20, [address] [facility] | | [facility] [place] Emergency Dependence on renal dialysis Chronic kidney | | disease, unspecified Allergy status to other drugs, medicaments and biological | | substances status Chronic pulmonary edema Other exterminator helper termite (current) drug therapy | | Allergy status to narcotic agent status Dyspnea, unspecified Radiographic dye | | allergy status Aug 13, 2018 [facility] [place] Emergency Allergy status to [...] dialysis Chest pain, unspecified Aug 13, 2018 [facility] | | Emergency July 18, 2018 [facility] Emergency Cough Pneumonia | | Hypoxemia Pleural [...] overload, unspecified | | Heart failure, unspecified bed bug exterminator (current) use of opiate analgesic Allergy | | status to other drugs, medicaments and biological substances status Radiographic dye | | allergy status Other fci (current) drug therapy Jun 12, 2018 [facility] | | [facility] [place] Emergency Shortness of breath Fluid overload, unspecified | | Hyperkalemia Radiographic dye allergy status Allergy status to narcotic agent | | status Other exterminator helper termite (current) drug therapy Allergy status to other [...] long | | term (current) 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 bed bug exterminator (current) use of opiate analgesic Recent | | Inpatient Visit SummaryDate Facility City State Type Diagnoses or Chief Complaint Nigel | | [facility] Pleural Effusion Chronic | | pulmonary edema July 18, 2018 [facility] | | Hypoxemia Personal history of other diseases of urinary system Fever, unspecified | | Pleural effusion, not elsewhere classified End stage renal disease Dependence | | on renal dialysis Anemia in chronic kidney disease Pulmonary hypertension, | | unspecified Chronic right heart failure May 26, [address] [facility] | | General Medicine Acute respiratory distress Chest pain, unspecified Pleural | | effusion, not elsewhere classified Other ascites Dependence on renal dialysis | | Hyperkalemia Other disorders of phosphorus metabolism End stage renal disease | | Other specified personal risk factors, not elsewhere classified Acute systolic | | (congestive) heart failure Care TeamProvider [facility] Type Phone Fax Service Dates BHARAT, | | TIEN Gallagher MD Internal Medicine May 28, 2018 - [facility] | | has registered at the [facility] Emergency Department For more | | information visit: | | [email or web address] PLEASE | | NOTE: 1. Any care [...] or completeness of information | | provided.2019 Fwd: Power. - www.[email or web address] Intelligence | | Personal history of other diseases [...] status | | | |Jun 19, 2018 [facility] [place] Emergency | | Other chest pain | | End stage renal disease | | Dependence on renal dialysis | | Personal history of nicotine dependence | | Fluid overload, unspecified | | Heart failure, unspecified | | residential (current) use of opiate analgesic | | Allergy status to other drugs, medicaments and biological substances status | | Radiographic dye allergy status | | Other exterminator helper termite (current) drug therapy | | | |Jun 12, 2018 [facility] [place] Emergency | | Shortness of breath | | Fluid overload, unspecified | | Hyperkalemia | | Radiographic dye allergy status | | Allergy status to narcotic agent status | | Other fci (current) drug therapy | | Allergy status to other drugs, medicaments and biological substances status | | Unspecified asthma, uncomplicated | | Dependence on renal dialysis | | Chronic kidney disease, unspecified | | | |Jun 11, 2018 [facility] [place] Emergency | | Chronic pulmonary edema | | Shortness of breath | | Radiographic dye allergy status | | Personal history of nicotine dependence | | Other exterminator helper termite (current) drug therapy | | bed bug exterminator (current) use of opiate analgesic | | | | | | | |Recent Inpatient Visit Summary | |Date Facility City State Type Diagnoses or Chief Complaint | |Aug 20, 2018 [facility] | | Pleural Effusion | | Chronic pulmonary edema | | | |July 18, 2018 [facility] | | Hypoxemia | | Personal history of other diseases of urinary system | | Fever, unspecified | | Pleural effusion, not elsewhere classified | | End stage renal disease | | Dependence on renal dialysis | | Anemia in chronic kidney disease | | Pulmonary hypertension, unspecified | | Chronic right heart failure | | | |May 26, 2018 [facility] | | Acute respiratory [...] 28, 2018 - Current | | | |[employer] Portal | |This patient has registered at the [facility] Emergency Department | |For more information visit: [id number] | |PLEASE NOTE: | | 1. Any [...] of information provided. | | | |2019 Fwd: Power. - www.activ8 Intelligence | + + + +---------+ + + [...]
--- OUTSIDE RECORDS SUMMARY | ~2018-12-09 | XMS | Encounter Summary ---
Demographics + + + | Address | [address] | | | [place] [address] | + + + | Home Phone [...] | | | | | [place] [address] | | + + + + + | Thania Mallory | ECON | [address] | | | | | [place] [address] | | + + + + + | Deidra Weldon | ECON | [address] | | | | | [place] | | | | | [address] | | + + + + + Care Team Providers + +------+ + | Care Shellfish Processing Laborer Name | Role | Phone | + +------+ + | Shahid Camargo MD | PCP | Unavailable | + +------+ + Encounter Details +--------+ + + + + | Date | Type | Department | Care Team | Description | +--------+ + + + + | 12/20/ | Hospital | Radiology at [facility] | | | | 2012 | Encounter | [address] | | | | | | [place] Mailcode: | | | | | | [address] | | | | | | [place], [place] | | | | | | [address] | | | | | | [phone] | | | +--------+ + + + [...] Denise | | | | | | [place], [place] | | | | | | [address] | | | | | | [phone] | | | | | | | [...] | | | | | | of [place]. | | | | | | IMPRESSION: [...]
--- OUTSIDE RECORDS SUMMARY | ~2018-12-09 | XMS | Encounter Summary ---
Demographics + + + | Address | [address] | | | [place] [address] | + + + | Home Phone [...] | | | | | [place] [address] | | + + + + + | Thania Mallory | ECON | [address] | | | | | [place] [address] | | + + + + + | Deidra Weldon | ECON | [address] | | | | | [place] | | | | | [address] | | + + + + + Care Team Providers + +------+ + | Care Weave Defect Charting Clerk Name | Role | Phone | [...] Mailcode: | | | | | | [address] | [facility] | | | | | | [place] | [place] | | | | | | [place], | [place], [place] | | | | | | [place] | [address] | | | | | | [address] | Phone: | | | | | | Phone: | [phone] | | | | | | [phone] | | | | | | | Fax: | | | | | | | [phone] | | +--------+--------+ + + + + Encounter Details +--------+---------+ + + + | Date | Type | Department | Care Team | Description | +--------+---------+ + + + | 05/11/ | Office | Specialty Clinics | Sudhakar Joy | HSP | | 2016 | Visit | at [facility] [address] | D, [address] | ([place] | | | | [address] | [address] | purpura) nephritis | | | | Mailcode: [facility] | [place], [place] | (Primary Dx); Anemia | | | | [place] | [address] | of chronic kidney | | | | [place], [place] | [phone] | failure, stage 5 | | | | [address] | | ([facility]) | | | | [phone] | | | +--------+---------+ + + + [...] documented in this encounter Progress Notes Sudhakar Jyo MD - 05/12/2015 8:18 PM PST Pediatric [...] Hospital, [facility] [address] Mail code [facility] [place], [place] [address] Estrella Brennan MA - 05/12/2015 10:48 AM [...] [place] | | | | | | [address] | | | | | | [phone] | | | | | | | [...]
--- OUTSIDE RECORDS SUMMARY | ~2018-12-09 | XMS | Encounter Summary ---
Demographics + + + | Address | [address] | | | [place] [address] | + + + | Home Phone [...] | | | | | [place] [address] | | + + + + + | Thania Mallory | ECON | [address] | | | | | [place] [address] | | + + + + + | Deidra Weldon | ECON | [address] | | | | | [place] | | | | | [address] | | + + + + + Care Team Providers + +------+ + | Care Plugger Man Name | Role | Phone | [...] | Kidney | Diagnoses | Rufino, | Maytio, | | | | Transplant | End stage | Sudhakar Castellanos, | MD Jesus | | | | | renal | [address] | | | | | disease | [address] | [address] | | | | | (HCC) | [place] | [place], | | | | | Allergic | [place], [place] | [place] | | | | | purpura | [address] | [address] | | | | | ([facility]) | Phone: | Phone: | | | | | | [phone] | [phone] | | | | | | Fax: | Fax: | | | | | | [phone] | [phone] | +--------+--------+ + + + + Encounter Details +--------+ + + + + | Date | Type | Department | Care Team | Description | +--------+ + + + + | 12/20/ | Hospital | Radiology at [facility] | | | | 2012 | Encounter | [address] | | | | | | Caro [place] Mailcode: | | | | | | [address] | | | | | | [place], [place] | | | | | | [address] | | | | | | [phone] | | | +--------+ + + + [...] [place] | | | | | | [address] | | | | | | [phone] | | | | | | | [...] | e | 9:58 AM | MEDICARE 0788 | procedure are in the | | [...] | | + +---------+ + + | [facility] DEPARTMENT OF | | | | | RADIOLOGY | | | | + +---------+ + + documented in this encounter Visit Diagnoses + + | Diagnosis | + + | 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
--- OUTSIDE RECORDS SUMMARY | ~2018-12-09 | XMS | Encounter Summary ---
Demographics + + + | Address | [address] | | | [place] [address] | + + + | Home Phone [...] | | | | | [place] [address] | | + + + + + | Thania Mallory | ECON | [address] | | | | | [place] [address] | | + + + + + | Deidra Weldon | ECON | [address] | | | | | [place] | | | | | [address] | | + + + + + Care Team Providers + +------+ + | Care Automobile Body Worker Name | Role | Phone | [...] | | | | | Caro [place], | | | | | | [place] [address] | | | +--------+ + + + [...] Denise | | | | | | [place], [place] | | | | | | [address] | | | | | | [phone] | | | | | | | [...] [facility] - | [address] | [place] [address] | | | IMMUNOGENETICS/TRANS | [address] [...] [facility] - | [address] | [place] [address] | | | IMMUNOGENETICS/TRANS | [address] [...] [facility] - | [address] | [place] [address] | | | IMMUNOGENETICS/TRANS | [address] | | | | [facility] | | | | + + + + + documented in this encounter Visit Diagnoses + + | Diagnosis | + + | End stage renal disease (HCC) End stage renal disease | + + documented in this encounter"
--- OUTSIDE RECORDS SUMMARY | ~2018-12-09 | XMS | Encounter Summary ---
Demographics + + + | Address | [address] | | | [place] [address] | + + + | Home Phone [...] | | | | | [place] [address] | | + + + + + | Thania Mallory | ECON | [address] | | | | | [place] [address] | | + + + + + | Deidra Weldon | ECON | [address] | | | | | [place] | | | | | [address] | | + + + + + Care Team Providers + +------+ + | Care Rip Sawyer Name | Role | Phone | [...] check-in on | | | | Rd [place], [place] | [place], [place] | psychosocial goals | | | | [address] | [address] | related to listing | | | | [phone] | | status) | +--------+ + + [...] Denise | | | | | | [place], [place] | | | | | | [address] | | | | | | [phone] | | | | | | | | +--------+ + + + + documented as of this encounter Visit Diagnoses Not on filedocumented in this encounter"
--- OUTSIDE RECORDS SUMMARY | ~2018-12-09 | XMS | Encounter Summary ---
Demographics + + + | Address | [address] | | | [place] [address] | + + + | Home Phone [...] | | | | | [place] [address] | | + + + + + | Thania Mallory | ECON | [address] | | | | | [place] [address] | | + + + + + | Deidra Weldon | ECON | [address] | | | | | [place] | | | | | [address] | | + + + + + Care Team Providers + +------+ + | Care Group Managing Director Name | Role | Phone [...] | VERIFICATION) | | | | [facility] | [facility] | | | | | Rd [place], [place] | [place], [place] | | | | | [address] | [address] | | | | | [phone] | | | +--------+ + + + [...] | | | | | | [place] | | | | | | [address] | | | | | | [phone] | | | | | | | | +--------+ + + + + documented as of this encounter Visit Diagnoses Not on filedocumented in this encounter"
--- OUTSIDE RECORDS SUMMARY | ~2018-12-09 | XMS | Encounter Summary ---
Demographics + + + | Address | [address] | | | [place] [address] | + + + | Home Phone [...] | | | | | [place] [address] | | + + + + + | Thania Mallory | ECON | [address] | | | | | [place] [address] | | + + + + + | Deidra Weldon | ECON | [address] | | | | | [place] | | | | | [address] | | + + + + + Care Team Providers + +------+ + | Care Brazer Electronic Name | Role | Phone | + [...] form) | | | | [address] [facility] [facility] | [facility] | | | | | Rd [place], [place] | [place], [place] | | | | | [address] | [address] | | | | | [phone] | | | +--------+ + + + [...] Denise | | | | | | [place] | | | | | | [address] | | | | | | [phone] | | | | | | | | +--------+ + + + + documented as of this encounter Visit Diagnoses Not on filedocumented in this encounter"
--- OUTSIDE RECORDS SUMMARY | ~2018-12-09 | XMS | Encounter Summary ---
Demographics + + + | Address | [address] | | | [place] [address] | + + + | Home Phone [...] | | | | | [place] [address] | | + + + + + | Thania Mallory | ECON | [address] | | | | | [place] [address] | | + + + + + | Deidra Weldon | ECON | [address] | | | | | [place] | | | | | [address] | | + + + + + Care Team Providers + +------+ + | Care Tavern Operator Name | Role | Phone | [...] | [address] | | | | | Rd [place], [place] | [place], [place] | | | | | [address] | [address] | | | | | [phone] | [phone] | | | | | | | [...] Denise | | | | | | [place], [place] | | | | | | [address] | | | | | | [phone] | | | | | | | | +--------+ + + + + documented as of this encounter Visit Diagnoses Not on filedocumented in this encounter"
--- OUTSIDE RECORDS SUMMARY | ~2018-12-09 | XMS | Encounter Summary ---
Demographics + + + | Address | [address] | | | [place] [address] | + + + | Home Phone [...] | | | | | [place] [address] | | + + + + + | Thania Mallory | ECON | [address] | | | | | [place] [address] | | + + + + + | Deidra Weldon | ECON | [address] | | | | | [place] | | | | | [address] | | + + + + + Care Team Providers + +------+ + | Care Rnp Name | Role | Phone | + [...] Update | | | | [address]NAL[address] [facility] | [address] | | | | | [place], [place] | [place], [place] | | | | | [address] | [address] | | | | | [phone] | [phone] | | | | | | | [...] Denise | | | | | | [place] | | | | | | [address] | | | | | | [phone] | | | | | | | | +--------+ + + + + documented as of this encounter Visit Diagnoses Not on filedocumented in this encounter"
--- OUTSIDE RECORDS SUMMARY | ~2018-12-09 | XMS | Encounter Summary ---
Demographics + + + | Address | [address] | | | [place] [address] | + + + | Home Phone [...] | | | | | [place] [address] | | + + + + + | Thania Mallory | ECON | [address] | | | | | [place] [address] | | + + + + + | Deidra Weldon | ECON | [address] | | | | | [place] | | | | | [address] | | + + + + + Care Team Providers + +------+ + | Care Distribution Sales Representative Name | Role | Phone [...] | | | | | TRANSTHORACI | [place], [place] | [facility] | | | | | C | [address] | [place] | | | | | ECHOCARDIOGR | Phone: | [place], [place] | | | | | AM, PEDS | [phone] | [address] | | | | | | Fax: | Phone: | | | | | | [phone] | [phone] | | | | | | | Fax: | | | | | | | [phone] | +--------+--------+ + + + + Reason [...] | [facility] | [facility] | | | | | Rd [place], [place] | [place], [place] | | | | | [address] | [address] | | | | | [phone] | | | +--------+ + + + [...] 2022 | Encounter | | [address] | | | | | | [place], [place] | | | | | | [address] | | | | | | [phone] | | | | | | | [...] + + + | Please click | [facility] | | on view image for the detailed interpretation from [employer] results. | CARDIOLOGY | + + + + + | Procedure Note | + + | Interface, Cardiology Results - 12/21/2012 9:38 AM PDT Please click on view image | | for the detailed interpretation from [employer] results. | + + + + + + + | Performing | Address | City/State/Zipcode | Phone Number | | Organization | | | | + + + + + | [facility] | [address] | [place], [place] | | | CARDIOLOGY | [address] | [address] | | + + + + + LIT HLA-B WILEY ZHANG (12/20/2012 10:02 AM PDT) + + | Specimen | + + | Blood - Blood | + + + + + + + | Performing | Address | City/State/Zipcode | Phone Number | | Organization | | | | + + + + + | [facility] - | [address] | [place] [address] | | | IMMUNOGENETICS/TRANS | [address] [...] + + | [facility] - | [address] | [place] [address] | | | IMMUNOGENETICS/TRANS | [address] [...] - | [address] | [place], [place] | | | IMMUNOGENETICS/TRANS | [address] [...] - | [address] | [place] | | | IMMUNOGENETICS/TRANS | [address] [...] + + | [facility] - | [address] | [place] [address] | | | IMMUNOGENETICS/TRANS | [address] [...] [facility] - | [address] | [place] [address] | | | IMMUNOGENETICS/TRANS | [address] [...] | | + +---------+ + + | [facility] DEPARTMENT OF | | | [...] UNIV | | | | [place], [facility],[place] | | PTH - INTFC | | | | [address] | | | | | | [phone].[employer] Planet Energy Systemslab. | | | | | | [...] [facility] | [address] | [place], [place] | | | UNIV PTH - INTFC | | [address] | | + + + + + [...] [facility] | [address] | [place] [address] | | | SERVICES, CORE | PARK [...] | + + + + + | [facility] | [address] | [place] [address] | | | SERVICES, CORE | LONG [...] + | [facility] - | [address] | [place] [address] | | | [place] | | | | + + + [...] [facility] | [address] | [place] [address] | | | SERVICES, CORE | PARK [...] LABORATORY | [address] | [place] [address] | | | SERVICES, CORE | [address] | | | + + + + + ROCÍO GARAY ONLY (12/20/2012 8:39 AM PDT) + + + + + + | Component | Value | Ref Range | Performed | Pathologist | | | | | At | Signature | + + + + + + | COLOR(UR) | Yellow | | [facility] | | | | | | LABORATORY [...] | + + + + + | [facility] | [address] | [place] [address] | | | RIKY, HOMERO | LONG [...] - | | | | | | [place] | | + + + + + + + + | Specimen | + + | Blood - Blood | + + + + + + + | Performing | Address | City/State/Zipcode | Phone Number | | Organization | | | | + + + + + | [facility] - | [address] | [place] [address] | | | [place] | | | | + + + [...] | | | at: | | | http://www.cdc.gov/nchstp/tb/pubs/tbfactssheets/392856.htm | | | Test performed by: [facility] | | | Public Health Lab [address] [place] [address] | | | | | + + [...] [facility] | [address] | [place] [address] | | | SERVICES, SPECIAL | PARK [...] that | [facility] | | there is no mutation in either copy of the prothrombin gene at | DIAGNOSTIC | | nucleotide [address]. Please note that this assay only detects the | LABORATORIES | | [id number] point mutation and therefore a normal result [...] has been analyzed for the presence of [id number] | | | mutation in the prothrombin [...] | above. Heterozygotes for the common prothrombin R18010K mutation | | | constitute approximately 2% of the normal white population (1,2). | | | References: 1.) Poort et al. Blood 88, 8715-1514 (1996). 2.) Ricardo | | | et al. Circulation 99, 999-1004 (1998). 3.) Al Montalvo, and | | | Chase. Amer J Clin Path 155, 439-47 (2001). This test was | | | developed and its performance characteristics determined by the [facility] | | | [facility]. It has | | | not been cleared or approved by the Food and Drug | | | Administration. FDA approval is not required for clinical use of | | | this test, and therefore validation was done as required under the | | | requirements of the Clinical Laboratory Improvement Act of | | | 1988. [facility] | | | Center is a fully licensed and/or accredited clinical laboratory under | | | CLIA, [facility], and the State of [place]. Please note that our lab now | [...] + + | Performing | Address | City/State/[facility] | Phone Number | | Organization | | | | + + + + + | [facility] | [address] | [place] [address] | | | DIAGNOSTIC | [address] [...] [facility] | [address] | [place] [address] | | | SERVICES, CORE | PARK [...] | + + + + + | [facility] | [address] | [place] [address] | | | SERVICES, CORE | LONG [...] [facility] | [address] | [place] [address] | | | SERVICES, HOMERO | PARK [...] | + + + + + | [facility] | [address] | [place] [address] | | | SERVICES, HOMERO | LONG [...] | | | | | | [place], [place] [address] | | | | | | [phone].[email or web address]. | | | | | | Faisal [...] [facility] | [address] | [place], [place] | | | UNIV PTH - INTFC | | [address] | | + + + + + [...] | + + + + + | [facility] | [address] | [place] [address] | | | SERVICES, SPECIAL | PARK [...] + + + | [facility] | [address] | [place] [address] | | | DIAGNOSTIC | [address] [...] + | [facility] - | [address] | [place] [address] | | | [place] | | | [...] + | [facility] - | [address] | [place] [address] | | | [place] | | | [...] + | [facility] - | [address] | [place] [address] | | | [place] | | | [...] + | [facility] - | [address] | [place] [address] | | | [place] | | | | + + + [...] less......Not | | | | | | Bwgmkssy90.0-21.9 | | | | | | U/mL.........Indetermina [...] available | | | | | | [email or web address] | | | | | | vdx.Performed by [facility] | | | | | | [facility],[address] | | | | | | [place] [address] | | | | | | [phone].aruplab. | | | | | | Faisal [...] [facility] | [address] | [place], [place] | | | UNIV PTH - INTFC | | [address] | | + + + + + [...] | + + + + + | [facility] - | [address] | [place] [address] | | | [place] | | | | + + + [...] [facility] | [address] | [place] [address] | | | SERVICES, HOMERO | LONG [...] by | | | | | | [address] | | | | | | [place], [facility],[place] | | | | | | [address] | | | | | | [phone].[employer] Planet Energy Systemslab. | | | | | | [...] [facility] | [address] | [place], [place] | | | UNIV PTH - INTFC | | [address] | | + + + + + [...] | + + + + + | [facility] | [address] | [place] [address] | | | SERVICES, CORE | LONG [...] [facility] | [address] | [place] [address] | | | SERVICES, CORE | LONG [...] + + + | [facility] | [address] | [place] [address] | | | [place] | LONG [...]
--- OUTSIDE RECORDS SUMMARY | ~2018-12-09 | XMS | Encounter Summary ---
Demographics + + + | Address | [address] | | | [place] [address] | + + + | Home Phone [...] | | | | | [place] [address] | | + + + + + | Thania Mallory | ECON | [address] | | | | | [place] [address] | | + + + + + | Deidra Weldon | ECON | [address] | | | | | [place] | | | | | [address] | | + + + + + Care Team Providers + +------+ + | Care Conduit Reamer Operator Name | Role | Phone | [...] | | | [place], | [place] [address] | | | | | [place] [address] | [phone] | | | | | | | [...] Denise | | | | | | [place], [place] | | | | | | [address] | | | | | | [phone] | | | | | | | | +--------+ + + + + documented as of this encounter Visit Diagnoses Not on filedocumented in this encounter"
--- OUTSIDE RECORDS SUMMARY | ~2018-12-09 | XMS | Encounter Summary ---
Demographics + + + | Address | [address] | | | [place] [address] | + + + | Home Phone [...] | | | | | [place] [address] | | + + + + + | Thania Mallory | ECON | [address] | | | | | [place] [address] | | + + + + + | Deidra Weldon | ECON | [address] | | | | | [place] | | | | | [address] | | + + + + + Care Team Providers + +------+ + | Care Medical Transport Specialist Name | Role | Phone | [...] Coordinators [phone] | RN [address] [facility] | | | | | ANNALISA [facility] | [facility] | | | | | Rd [place], [place] | [place], [place] | | | | | [address] | [address] | | | | | [phone] | | | +--------+ + + + [...] Denise | | | | | | [place], [place] | | | | | | [address] | | | | | | [phone] | | | | | | | | +--------+ + + + + documented as of this encounter Visit Diagnoses Not on filedocumented in this encounter"
--- OUTSIDE RECORDS SUMMARY | ~2018-12-09 | XMS | Encounter Summary ---
Demographics + + + | Address | [address] | | | [place] [address] | + + + | Home Phone [...] | | | | | [place] [address] | | + + + + + | Thania Mallory | ECON | [address] | | | | | [place] [address] | | + + + + + | Deidra Weldon | ECON | [address] | | | | | [place] | | | | | [address] | | + + + + + Care Team Providers + +------+ + | Care Daily Sales Audit Clerk Name | Role | Phone | [...] | | | | | [place]o [place], | | | | | | [place] [address] | | | +--------+ + + + [...] Denise | | | | | | [place], [place] | | | | | | [address] | | | | | | [phone] | | | | | | | [...] [facility] - | [address] | [place] [address] | | | IMMUNOGENETICS/TRANS | [address] [...] [facility] - | [address], | [place] [address] | | | IMMUNOGENETICS/TRANS | [address] [...] [facility] - | [address] | [place] [address] | | | IMMUNOGENETICS/TRANS | [address] | | | | [facility] | | | | + + + + + documented in this encounter Visit Diagnoses + + | Diagnosis | + + | End stage renal disease (HCC) End stage renal disease | + + documented in this encounter"
--- OUTSIDE RECORDS SUMMARY | ~2018-12-09 | XMS | Encounter Summary ---
Demographics + + + | Address | [address] | | | [place] [address] | + + + | Home Phone [...] Author | [facility] | | | and Josephana | + + + | Organization | [facility] [...] Providers + +------+ + | Care Farm Service Consultant Name | Role | Phone | + +------+ + | Tien Nicholson MD | PCP | | + +------+ + Encounter Details +--------+ + + + + | Date | Type | Department | Care Team | Description | +--------+ + + + + | 10/17/ | Hospital | [facility] | Nikita, | SOB (shortness of | | 2019 - | Encounter | [facility] | MD Na[address] | breath); Pleural | | | | CARE FLOOR [address] | effusion on right; | | 10/20/ | | [address] | [place] [address] | ESRD needing | | 2019 | | [place], [place] | [phone] | dialysis ([facility]); End | | | | [address] | | stage renal disease | | | | [phone] | | (HCC) | +--------+ + + [...] | | | | renal disease) ([facility]) | protocol | | [...] + + +---------+ + + | B Wmznsbp-O-Jvgev | Take 1 tablet by | | [...] 10/19/182357 Date of Service: 10/19/182357 Status: Signed Healthcare Liaison: Vira Ford RN (Registered Nurse) No acute [...] 10/19/181827 Date of Service: 10/19/181826 Status: Signed Healthcare Liaison: Trent Jovel RN (Registered Nurse) Dialysis completed today 2.4L removed. Remains on fluid restriction. Medicated for pain x 2. End of shift review complete. Trent Jovel RN onversio n Transaction, Provider Unknown - 10/19/2018 1536 PDTFormatting of this note might be differ ent from the original. Case Management by DORON Diallo at 10/19/18 1536 Author: DORON Diallo Service: (none) Author Type: Pharmacy Messenger Filed: 10/19/18 1537 Date of Service: 10/19/18 1536 Status: Signed Healthcare Liaison: DORON Diallo (Pharmacy Messenger) Discharge planning: Return home when medically ready for discharge. Pt is receiving dialysi s on MWF. Pt is currently on 4L O2, pt may need a home O2 evaluation at discharge. ipul Pabon MD - 10/19/2018 1214 PDT Progress Notes by Antonio Pabon MD at 10/19/18 1214 Author: Antonio Pabon MD Service: Nephrology Author Type: Physician Filed: 10/25/18 6274 Date of Service: 10/19/18 1214 Status: Addendum Healthcare Liaison: Antonio Pabon MD (Physician) Related Notes: Original Note by Antonio Pabon MD (Physician) filed at 10/25/18 6023 [facility] Service: NEPHROLOGY Progress Note Dara Weldon 23 y.o. [id number] female TIEN NICHOLSON 23-year-old female with [...] AV FISTULA; Surgeon: Rik Simon MD; Location: [facility] OR; Service: Vascula r; Laterality: Left; cephalic AV FISTULA REPAIR Left 03/07/2014 Procedure: AV FISTULA - GRAFT REPAIR/REVISION; Surgeon: Rik Simon MD; Location: [facility] IN OR; Service: Vascular; Laterality: Left; DECLOT GRAFT Left 03/07/2014 Procedure: GRAFT - DECLOT; Surgeon: Rik Simon MD; Location: [facility] OR; Service: Vas cular; Laterality: Left; DIALYSIS FISTULA CREATION N/A 04/08/2014 Procedure: DIALYSIS CATHETER - INSERTION; Surgeon: Rik Simon MD; Location: [facility] MA[facility] OR ; Service: Vascular; Laterality: N/A; tunneled catheter LAPAROSCOPIC PERITONEAL DIALYSIS CATHETER INSERTION x2 LAPAROSCOPIC PERITONEAL DIALYSIS CATHETER INSERTION Right 07/2013 current dialysis access MWF dialysis RENAL BIOPSY Left 2003 SUPERFICIALIZATION OF AV FISTULA Left 06/24/2014 Procedure: AV FISTULA - SUPERFICIALIZATION; Surgeon: Rik Simon MD; Location: [facility] MA[facility] OR; Service: Vascular; Laterality: Left; [...] Social History Narrative She lives in [facility]. She does not work. She has [...] ral space is punctured with an 5 Zambian Triond centesis catheter. Fluid is aspirated without complication. [...] 1 VIEW (10/17/2018); CHEST TWO V IEWS 27827 (10/17/2018); FINDINGS: Compared to the prior examination [...] MR, severe TR.severe pulmonary hypertens ion Chest v-jpz-plsircrjkfnz with pulmonary edema and large right pleural [...] earlier and charting completed later Dictation software, Business Lab, used which may contain error for similar sounding words even af ter review. Personal communication requested for any clarification. inci, MD Gerber - 48 PDT Progress Notes by Gerber Pearson MD at 10/19/18747 Author: Gerber Pearson MD Service: Hospitalist Author Type: Physician Filed: 10/19/18 0753 Date of Service: 10/19/18747 Status: Signed Healthcare Liaison: Gerber Pearson MD (Physician) [facility] Service: Hospitalist Progress Note Hospital Day: [...] with dyspnea Patient was recently discharged from [facility] on 08/23/2018. For full note, please see discha rge summary from hospitalist. In summary, the patient was admitted for noncardiogenic pulmo nary edema after thoracentesis. At that point, prior to admission, she was seen [facility] at [facility] in [place] on 08/21 where she underwent right th [...] BUN 90 on admission -History of a [place] Schnlein purpura -Last hemodialysis approximately 2 weeks [...] 10/19/18733 Date of Service: 10/19/18733 Status: Signed Healthcare Liaison: Vira Ford RN (Registered Nurse) No acute [...] Author: DORON Diallo Service: (none) Author Type: Pharmacy Messenger Filed: 10/18/181706 Date of Service: 10/18/181700 Status: Signed Healthcare Liaison: DORON Diallo (Pharmacy Messenger) Discharge planning: Return home when medically ready for discharge. Fr gela Fernandez MD - 10/18/201846 PDTFormatting of this note might be different from the origina l. Progress Notes by Gerber Pearson MD at 10/18/18745 Author: Gerber Pearson MD Service: Hospitalist Author Type: Physician Filed: 10/18/18750 Date of Service: 10/18/18745 Status: Signed Healthcare Liaison: Gerber Pearson MD (Physician) [facility] Service: Hospitalist Progress Note Hospital Day: [...] with dyspnea Patient was recently discharged from [facility] on 08/23/2018. For full note, please see discha rge summary from hospitalist. In summary, the patient was admitted for noncardiogenic pulmo nary edema after thoracentesis. At that point, prior to admission, she was seen at the [facility] at [facility] in [place] on 08/21 where she underwent right th [...] BUN 90 on admission -History of a [place] Schnlein purpura -Last hemodialysis approximately 2 weeks [...] Notes by Antonio Pabon MD at 10/18/18 0764 Author: Antonio Pabon MD Service: Nephrology Author Type: Physician Filed: 10/25/182002 Date of Service: 10/18/18744 Status: Signed Healthcare Liaison: Antonio Pabon MD (Physician) [facility] Service: NEPHROLOGY Progress Note Dara Weldon 23 y.o. [id number]/[id number] female [facility] Day: LOS: 1 day 23-year-old female [...] AV FISTULA; Surgeon: Rik Simon MD; Location: [facility] OR; Service: Vascula r; Laterality: Left; cephalic AV FISTULA REPAIR Left 03/07/2014 Procedure: AV FISTULA - GRAFT REPAIR/REVISION; Surgeon: Rik Simon MD; Location: [facility]; Service: Vascular; Laterality: Left; DECLOT GRAFT Left 03/07/2014 Procedure: GRAFT - DECLOT; Surgeon: Rik Simon MD; Location: [facility] OR; Service: Vas cular; Laterality: Left; DIALYSIS FISTULA CREATION N/A 04/08/2014 Procedure: DIALYSIS CATHETER - INSERTION; Surgeon: Rik Simon MD; Location: [facility] OR ; Service: Vascular; Laterality: N/A; tunneled catheter LAPAROSCOPIC PERITONEAL DIALYSIS CATHETER INSERTION x2 LAPAROSCOPIC PERITONEAL DIALYSIS CATHETER INSERTION Right 07/2013 current dialysis access MWF dialysis RENAL BIOPSY Left 2003 SUPERFICIALIZATION OF AV FISTULA Left 06/24/2014 Procedure: AV FISTULA - SUPERFICIALIZATION; Surgeon: Rik Simon MD; Location: [facility] OR; Service: Vascular; Laterality: Left; Prescriptions Prior [...] Social History Narrative She lives in [facility]. She does not work. She has [...] QTC Calculation (Bezet) 469 ms Calculated P [place] 46 degrees Calculated R [place] 127 degrees Calculated T [place] 94 degrees Diagnosis Normal sinus rhythm Right [...] MR, severe TR.severe pulmonary hypertens ion Chest q-gcy-knjzybciqqfg with pulmonary edema and large right pleural [...] earlier and charting completed later Dictation software, Business Lab, used which may contain error for similar [...] 10/18/1853 Date of Service: 10/18/18650 Status: Signed Healthcare Liaison: Ronnie Vargas RN (Registered Nurse) Pt alert and oriented X 4. PRN pain med given for back pain. No other acute changes durin g shift. Chart check complete onversio n Transaction, Provider Unknown - 10/17/2018 0948 PDTFormatting of this note might be differ ent from the original. Case Management by DORON Diallo at 10/17/18947 Author: DORON Diallo Service: (none) Author Type: Pharmacy Messenger Filed: 10/17/1845 Date of Service: 10/17/18947 Status: Signed Healthcare Liaison: DORON Diallo (Pharmacy Messenger) 10/17/18 0900 Discharge Planning Evaluation Admitting Diagnosis (SOB) Readmission Other (comment) (Last admit 08/20/18) Living Arrangements Alone Support Systems Family members;Friends/neighbors Type of Residence Private residence House type Apartment Independent with ADL's Yes Independent with Mobility Yes Home Care Services No Caregiver after Discharge No Mental Status Oriented Prior functional status (Independent) Power of Tool Coordinator No Resources Financial concerns No Transportation issues No Patient/Family concerns No Prescription Plan Yes Name of Pharmacy ([facility] in [place]) Previous home health equipment No Anticipated Disposition Facility Type Home MATH COACH CM met with pt and discussed discharge planning. Pt is a 23 y.o., female admitted for s hortness of breath. Pt resides alone in an apartment at [address] [place] [address]. Pt reported that she has neighbor and friend support. Pt's mother, Thania cheung can be reached at and sister, Saundra can be reached at . Pt reported being independent with ADL's,, IADL's and mobility prior to this admission. Pt denied previous outpatient OT/PT services, home care services and home O2 prior to this admission. Pt reported that she received dialysis from [facility] on MWF prior to this admission . [...] 10/17/18743 Date of Service: 10/17/18743 Status: Signed Healthcare Liaison: Camilla Moody RPH (Pharmacist) Clinical Pharmacy Note: [...] Moody, PharmD 10/17/2018 7:42 AM Fr gela Fernandez MD - 10/17/2018716 PDTFormatting of this note might be different from the origina l. Progress Notes by Gerber Pearson MD at 10/17/18716 Author: Gerber Pearson MD Service: Hospitalist Author Type: Physician Filed: 10/17/18746 Date of Service: 10/17/18716 Status: Signed Healthcare Liaison: Gerber Pearson MD (Physician) [facility] Service: Hospitalist Progress Note Hospital Day: [...] with dyspnea Patient was recently discharged from [facility] on 08/23/2018. For full note, please see ketan agudelo summary from hospitalist. In summary, the patient was admitted for noncardiogenic pulmo nary edema after thoracentesis. At that point, prior to admission, she was seen at the [facility] at [facility] in [place] on 08/21 where she underwent right th [...] the case over the phone with patient's load builder Dr. Mahmood, recommends medi oly management and [...] creatinine 14, BUN 90 -History of a [place] Schnlein purpura -Last hemodialysis approximately 2 weeks [...] [address] | | | | | | [place] [address] | | | | | | [phone] | | | | | | | [...] [address], | | | | | | [place] [address] | | | | + + + [...] CHEST 1 VIEW (10/17/2018); CHEST TWO VIEWS 10724 | | | (10/17/2018); FINDINGS: Compared to [...] + + | Cedric Rad Conversion - 11/09/2018 0932 PDT CHEST INSPIRATION OR EXPIRATION ONLY | | CLINICAL INFORMATION: | | Post thoracentesis. | | COMPARISON: | | US THORACENTESIS WITH IMAGING GUIDANCE (10/18/2018); XR CHEST 1 VIEW | | (10/17/2018); CHEST TWO VIEWS 06211 (10/17/2018); | | FINDINGS: | | Compared [...] pleural space is punctured with an 5 Zambian Yueh centesis | | | catheter. Fluid [...] pleural space is punctured with an 5 Zambian Yueh | | centesis catheter. Fluid is [...] | | | | | at [facility], [address] | | | | | | [address], | | | | | | [place] [address] | | | | | |Testing performed at [facility], [address] [place] [address] | | | | | | | [...] EXTERNAL | | | | performed at [facility], [address] | | LAB | | | | [address], | | | | | | [place] [address] | | | | + + + [...] | | | | | performed at [facility], [address] | | | | | | [facility], | | | | | | [place] [address] | | | | + + + [...] | | | | | [facility];[address] [place] [address] | | | | | | [facility];[place] [address] | | | | + + + [...] Jiménez | | | | | | [address] | | | | + + + [...] | | | | | [facility];[address] [facility] [address] | | | | | | [facility];[place] [address] | | | | + + + [...] | LAB | | | | [address];[place] | | | | | | [address] | | | | + + + [...] ASSOCIATION;[address] | | | | | | [address];[place], [place] | | | | | | [address] | | | | + + + [...] | | | | | [facility];[address] [facility] | | | | | | Blvd;[place] [address] | | | | + + + [...] | | | | | [facility];[address] [facility] | | | | | | [facility];[place] [address] | | | | + + + [...] LAB | | | | [facility];[address] [place] [address] | | | | | | [place] [address] | | | | + + + [...]
--- OUTSIDE RECORDS SUMMARY | ~2018-12-09 | XMS | Encounter Summary ---
Demographics + + + | Address | [address] | | | [place] [address] | + + + | Home Phone [...] | | | | | [place] [address] | | + + + + + | Thania Mallory | ECON | [address] | | | | | [place] [address] | | + + + + + | Deidra Weldon | ECON | [address] | | | | | [place] | | | | | [address] | | + + + + + Care Team Providers + +------+ + | Care Road Freight Conductor Name | Role | Phone | + +------+ + | Jonathan Aolnso MD | PCP | | + +------+ + Encounter Details +--------+ + + + + | Date | Type | Department | Care Team | Description | +--------+ + + + + | 01/20/ | Hospital | Radiology at [facility] | | | | 2014 | Encounter | [address] | | | | | | Caro Chan Mailcode: | | | | | | [address] | | | | | | [place], [place] | | | | | | [address] | | | | | | [phone] | | | +--------+ + + + [...] Denise | | | | | | [place], [place] | | | | | | [address] | | | | | | [phone] | | | | | | | [...] | | + +---------+ + + | [facility] | | | | | [...]
--- OUTSIDE RECORDS SUMMARY | ~2018-12-09 | XMS | Encounter Summary ---
Demographics + + + | Address | [address] | | | [place] [address] | + + + | Home Phone [...] | Author | [facility] | | | and Josephana | + + + | Organization | [facility] [...] + +------+ + | Care Industrial Engineering Professor Name | Role | Phone | [...] + + | 11/13/ | Telephone | [facility] | Silvia Rabago | DME ([employer]) | | 2019 | | [address] | | | | | [place] | | | | | | [address] | | | | | | [phone] | | | +--------+ + + + [...] | | | | | [place] [address] | | | | | | [phone] | | | | | | | | +--------+---------+ + + + documented as of this encounter Visit Diagnoses Not on filedocumented in this encounter"
--- OUTSIDE RECORDS SUMMARY | ~2018-12-09 | XMS | Encounter Summary ---
Demographics + + + | Address | [address] | | | [place] [address] | + + + | Home Phone [...] | | | | | [place] [address] | | + + + + + | Thania Mallory | ECON | [address] | | | | | [place] [address] | | + + + + + | Deidra Weldon | ECON | [address] | | | | | [place] | | | | | [address] | | + + + + + Care Team Providers + +------+ + | Care Sand System Operator Name | Role | Phone | [...] | Update | | | | [facility] | [facility] | | | | | Rd [place], [place] | [place], [place] | | | | | [address] | [address] | | | | | [phone] | | | +--------+ + + + [...] Denise | | | | | | [place] | | | | | | [address] | | | | | | [phone] | | | | | | | | +--------+ + + + + documented as of this encounter Visit Diagnoses Not on filedocumented in this encounter"
--- OUTSIDE RECORDS SUMMARY | ~2018-12-09 | XMS | Encounter Summary ---
Demographics + + + | Address | [address] | | | [place] [address] | + + + | Home Phone [...] | | | | | [place] [address] | | + + + + + | Thania Mallory | ECON | [address] | | | | | [place] [address] | | + + + + + | Deidra Weldon | ECON | [address] | | | | | [place] | | | | | [address] | | + + + + + Care Team Providers + +------+ + | Care Track Layer Name | Role | Phone | [...] SW | | | | [address] [facility] | [address] | follow-up on | | | | Rd [place], [place] | [place], [place] | [place] | | | | [address] | [address] | care plan) | | | | [phone] | | | +--------+ + + + [...] Denise | | | | | | [place] | | | | | | [address] | | | | | | [phone] | | | | | | | | +--------+ + + + + documented as of this encounter Visit Diagnoses Not on filedocumented in this encounter"
--- OUTSIDE RECORDS SUMMARY | ~2018-12-09 | XMS | Encounter Summary ---
Demographics + + + | Address | [address] | | | [place] [address] | + + + | Home Phone [...] | | | | | [place] [address] | | + + + + + | Thania Mallory | ECON | [address] | | | | | [place] [address] | | + + + + + | Deidra Weldon | ECON | [address] | | | | | [place] | | | | | [address] | | + + + + + Care Team Providers + +------+ + | Care Hadoop Engineer Name | Role | Phone | [...] Coordinators [address] | RN [address] [facility] | | | | | [address] [facility] | [facility] | | | | | Rd [place], [place] | [place], [place] | | | | | [address] | [address] | | | | | [phone] | | | +--------+ + + + [...] Denise | | | | | | [place], [place] | | | | | | [address] | | | | | | [phone] | | | | | | | | +--------+ + + + + documented as of this encounter Visit Diagnoses Not on filedocumented in this encounter"
--- OUTSIDE RECORDS SUMMARY | ~2018-12-09 | XMS | Encounter Summary ---
Demographics + + + | Address | [address] | | | [place] [address] | + + + | Home Phone [...] | | | | | [place] [address] | | + + + + + | Thania Mallory | ECON | [address] | | | | | [place] [address] | | + + + + + | Deidra Weldon | ECON | [address] | | | | | [place] | | | | | [address] | | + + + + + Care Team Providers + +------+ + | Care Transformer Builder Name | Role | Phone | [...] Rd | | | | | [facility] | [place], [place] | | | | | [address] | [address] | | | | | Caro Chan Mailcode: | [phone] | | | | | [address] | | | | | | [place], [place] | | | | | | [address] | | | | | | [phone] | | | +--------+ + + + [...] [facility] | | | | | | [address] | | | | | | [phone] | | | | | | | | +--------+ + + + + documented as of this encounter Visit Diagnoses Not on filedocumented in this encounter"
--- OUTSIDE RECORDS SUMMARY | ~2018-12-09 | XMS | Encounter Summary ---
Demographics + + + | Address | [address] | | | [place] [address] | + + + | Home Phone [...] | | | | | [place] [address] | | + + + + + | Thania Mallory | ECON | [address] | | | | | [place] [address] | | + + + + + | Deidra Weldon | ECON | [address] | | | | | [place] | | | | | [address] | | + + + + + Care Team Providers + +------+ + | Care It Help Desk Associate Name | Role | Phone | [...] | Update | | | | [address] [facility] | [address] | | | | | Rd [place], [place] | [place], [place] | | | | | [address] | [address] | | | | | [phone] | [phone] | | | | | | | [...] Denise | | | | | | [place], [place] | | | | | | [address] | | | | | | [phone] | | | | | | | | +--------+ + + + + documented as of this encounter Visit Diagnoses Not on filedocumented in this encounter"
--- OUTSIDE RECORDS SUMMARY | ~2018-12-09 | XMS | Encounter Summary ---
Demographics + + + | Address | [address] | | | [place] [address] | + + + | Home Phone [...] | | | | | [place] [address] | | + + + + + | Thania Mallory | ECON | [address] | | | | | [place] [address] | | + + + + + | Deidra Weldon | ECON | [address] | | | | | [place] | | | | | [address] | | + + + + + Care Team Providers + +------+ + | Care Pigment Mixer Name | Role | Phone | [...] | Update | | | | [facility] | [facility] | | | | | Rd [place], [place] | [place], [place] | | | | | [address] | [address] | | | | | [phone] | | | +--------+ + + + [...] | 2022 | Encounter | | [address] | | | | | | [place] | | | | | | [address] | | | | | | [phone] | | | | | | | | +--------+ + + + + documented as of this encounter Visit Diagnoses Not on filedocumented in this encounter"
--- OUTSIDE RECORDS SUMMARY | ~2018-12-09 | XMS | Encounter Summary ---
Demographics + + + | Address | [address] | | | [place] [address] | + + + | Home Phone [...] | | | | | [place] [address] | | + + + + + | Thania Mallory | ECON | [address] | | | | | [place] [address] | | + + + + + | Deidra Weldon | ECON | [address] | | | | | [place] | | | | | [address] | | + + + + + Care Team Providers + +------+ + | Care Low [employer] Defense Gunner Name | Role | Phone | + [...] Update | | | | [place] | [facility] | | | | | [facility] | [place], [place] | | | | | [address] | [address] | | | | | [facility] Mailcode: | | | | | | [address] | | | | | | [place], [place] | | | | | | [address] | | | | | | [phone] | | | +--------+ + + + [...] | | | | | | [place] | | | | | | [address] | | | | | | [phone] | | | | | | | | +--------+ + + + + documented as of this encounter Visit Diagnoses Not on filedocumented in this encounter"
--- OUTSIDE RECORDS SUMMARY | ~2018-12-09 | XMS | Encounter Summary ---
Demographics + + + | Address | [address] | | | [place] [address] | + + + | Home Phone [...] | | | | | [place] [address] | | + + + + + | Thania Mallory | ECON | [address] | | | | | [place] [address] | | + + + + + | Deidra Weldon | ECON | [address] | | | | | [place] | | | | | [address] | | + + + + + Care Team Providers + +------+ + | Care Elastic Cutter Name | Role | Phone | + +------+ + PCP | Unavailable | + +------+ + Reason for Visit + + + | Reason | Comments | + + + | Transplant Form | survey workers supervisor 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 | | Update | | [...] (Social | | | | ANNALISA Hoffmann [facility] | [facility] | worker dates | | | | [place], [place] | [place], [place] | updated) | | | | [address] | [address] | | | | | [phone] | [phone] | | | | | | | [...] [place] | | | | | | [place], [place] | | | | | | [address] | | | | | | [phone] | | | | | | | | +--------+ + + + + documented as of this encounter Visit Diagnoses Not on filedocumented in this encounter"
--- OUTSIDE RECORDS SUMMARY | ~2018-12-09 | XMS | Encounter Summary ---
Demographics + + + | Address | [address] | | | [place] [address] | + + + | Home Phone [...] | Author | [facility] | | | and Josephana | + + + | Organization | [facility] [...] Team Providers + +------+ + | Care Country Manager Name | Role | Phone | [...] + + | 11/06/ | Hospital | [facility] | Johnathan Brooks, | Chronic right-sided | | 2019 - | Encounter | [facility] | MD Brooks TORRES | heart failure (HCC) | | | | CARE FLOOR [address] | [place] [address] | (Primary Dx); Acute | | 11/09/ | | [address] | [phone] | hypoxemic | | 2019 | | [place], [place] | | respiratory failure | | | | [address] | Darell Kowalski MD | (HCC); Chronic | | | | [phone] | [address] | 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 | | | | | [phone] | failure (HCC); | | | | | | 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 [facility] Service: Medicine DISCHARGE SUMMARY Primary [...] be evaluated at local emergency room at [facility]. In the ER patient was evaluated [...] transferred with the patient's paper documentation from [facility] ER). Initial labs: WBC 6.5, [...] suggesting of edema. Taken from Dr. Brooks [facility] (11/06/2018) HOSPITAL COURSE Patient was admitted for [...] GRAFT REPAIR/REVISION; Surgeon: Rik Simon MD; Location: [facility] IN OR; Service: Vascular; Laterality: Left; biopsy of kidney age 10 DIALYSIS FISTULA CREATION 04/08/2014 Procedure: DIALYSIS CATHETER - INSERTION; Surgeon: Rik Simon MD; Location: [facility] MAIN OR ; Service: Vascular; Laterality: N/A; tunneled catheter.br hemodialysis catheter KIDNEY BIOPSY Left 2003 OTHER SURGICAL HISTORY LAPAROSCOPIC PERITONEAL DIALYSIS CATHETER INSERTION - x2 OTHER SURGICAL HISTORY Right 07/2013 LAPAROSCOPIC PERITONEAL DIALYSIS CATHETER INSERTION - current dialysis access MWF dialysis OTHER SURGICAL HISTORY Left 06/24/2014 SUPERFICIALIZATION OF AV FISTULA - Procedure: AV FISTULA - SUPERFICIALIZATION; Surgeon: Emanuel Simon MD; Location: [facility] MAIN OR; Service: Vascular; Laterality: Left; OTHER SURGICAL HISTORY Left 04/08/2014 AV FISTULA PLACEMENT - Procedure: AV FISTULA; Surgeon: Rik Simon MD; Location: [facility] ENE N OR; Service: Vascular; Laterality: Left; cephalic OTHER SURGICAL HISTORY Left 03/07/2014 DECLOT GRAFT - Procedure: GRAFT - DECLOT; Surgeon: Rik Simon MD; Location: [facility] MAIN OR ; Service: Vascular; [...] Value Units Date/Time Culture, Body Fluid Sterile [[id number]] Collected: 11/07/18 1515 Order Status: Completed Lab Status: Preliminary result Updated: 11/09/18 141 Specimen: Body Fluid from Pleural Fluid, Right Special Requests RIGHT SIDE Special Requests Testing performed at [facility];[address] [place] [address] Gram Stain Result NO CELLS OR ORGANISMS SEEN RESULT NO GROWTH 2 DAYS RESULT Testing performed at [facility], [address] [place] [address] Comment: Testing performed at [facility], [address] [place] [address] Culture, Body Fluid Sterile [[id number]] Order Status: Canceled Lab Status: No result [...] DOMINGAVAN Follow Up: Jonathan Alonso MD [address] [place] [address] In 1 week René Anguiano MD [address] [facility] [address] [place] [address] In 1 week Discharge took 60 minutes, [...] | | | | | renal disease) ([facility]) | protocol | | | | [...] her sister. DME equipment order sent to [facility]. She refused oxygen delivery [...] UF. Hypervolemia has improved with HD/UF/thoracentesis. Acute NV has been ruled out. Recommendations: Plan for [...] for continuity of chart review/care. Dictation software, tok tok tok, was used which may contain error for [...] Igor Rich dent - 11/08/2018 1305 PDT [facility] Inpatient Progress Note Pt: Dara Louise AGE/SEX: [...] hypervolemic and has recurrent hyperkalemia/metabolic acidosis. Acute NV has been ruled out. Recommendations: Plan for [...] for continuity of chart review/care. Dictation software, tok tok tok, was used which may contain error for [...] valsartan 40 mg Oral Daily efri Meek [facility] dent - 11/07/2018 0725 PDT [facility] Inpatient Progress Note Pt: Dara Louise AGE/SEX: 23 y.o. ROOM: [facility]/[id number] : 1995 PCP: Jonathan Alonso MD PATIENT [...] and dyspnea. The patient was seen at [facility] ER and then transferred to [...] attestation - Darell Kowalski MD - 11/07/2018 2865 PDTAttending: Pt is seen and examined with [...] | | | | | | [place] [address] | | | | | | [phone] | | | | | | | [...] + | Billie Gupta MD 11/09/2018 9:34 [facility] | | | [facility] Hemo-Dialysis Procedure note Pt is [...] | | . 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 Alteration Specialist 240 | | | Constitutional: pt appears [...] Testing | 2.3 - 4.8 mg/dL | [facility] | | | | performed at [facility], [address] | | LABORATORY | | | | [address], | | | | | | [place] [address] | | | | + + + + + + + + | Specimen | + + | Blood | + + + + + + + | Performing | Address | City/State/Zipcode | Phone Number | | Organization | | | | + + + + + | [facility] | [address] | [place] [address] | [phone] | + + + + + Comprehensive [...] | | | | | performed at [facility], [address] | | | | | | [facility], | | | | | | [place] [address] | | | | + + + + + + + + | Specimen | + + | Blood | + + + + + + + | Performing | Address | City/State/Zipcode | Phone Number | | Organization | | | | + + + + + | [facility] | [address] | [place] [address] | [phone] | + + + + + CBC with Differential (11/09/2018 4:14 PDT) + + + + + + | Component | Value | Ref Range | Performed | Pathologist | | | | | At | Signature | + + + + + + | WBC | 4.25 | 3.80 - 11.00 | K[facility]I | | | | | K/uL | [...] LABORATORY | | | | performed at [facility], [address] | | | | | | [address], | | | | | | [place] [address] | | | | | | | | | | + + + + + + + + | Specimen | + + | Blood | + + + + + + + | Performing | Address | City/State/Zipcode | Phone Number | | Organization | | | | + + + + + | [facility] | [address] | [place] [address] | [phone] | + + + + + Protime INR (11/09/2018 4:14 PDT) + + + + + + | Component | Value | Ref Range | Performed | Pathologist | | | | | At | Signature | + + + + + + | INR | 1.3Comment: REFERENCE | | [facility] | | | | RANGE:0.9 - [...] | | | | | | [address];[place], [place] | | | | | | [address] | | | | + + + + + + + + | Specimen | + + | Blood | + + + + + + + | Performing | Address | City/State/Zipcode | Phone Number | | Organization | | | | + + + + + | [facility] | [address] | [place] [address] | [phone] | + + + + + Comprehensive [...] | | | | | performed at [facility], [address] | | | | | | [facility], | | | | | | [place] [address] | | | | + + + + + + + + | Specimen | + + | Blood | + + + + + + + | Performing | Address | City/State/Zipcode | Phone Number | | Organization | | | | + + + + + | [facility] | [address] | [place] [address] | [phone] | + + + + + CBC [...] | | | | | | at [facility], [address] | | | | | | [facility], | | | | | | [place] [address] | | | | | |Testing performed at [facility], [address] [place] [address] | | | | | | | | | | + + +--- + + + + + | Specimen | + + | Blood | + + + + + + + | Performing | Address | City/State/Zipcode | Phone Number | | Organization | | | | + + + + + | [facility] | [address] | [place] [address] | [phone] | + + + + + Protime INR (11/08/2018 4:47 PDT) + + + + + + | Component | Value | Ref Range | Performed | Pathologist | | | | | At | Signature | + + + + + + | INR | 1.3Comment: REFERENCE | | [facility] | | | | RANGE:0.9 - [...] | | | | | | [address];[place] | | | | | | [address] | | | | + + + + + + + + | Specimen | + + | Blood | + + + + + + + | Performing | Address | City/State/Zipcode | Phone Number | | Organization | | | | + + + + + | [facility] | [address] [facility] | [place] [address] | [phone] | + + + + + XR [...] is | | | punctured with an 5-Eritrean thoracentesis catheter. Fluid is aspirated | | [...] the pleural space is punctured with an 5-Eritrean | | thoracentesis catheter. Fluid is aspirated [...] | | LABORATORY | | | | Blvd;[place] [address] | | | | + + + [...] RESULT | Testing performed at | | [facility] | | | | [facility], [address] [facility] | | LABORATORY | | | | [place], [place] | | | | | | [id number]: Testing | | | | | | performed at [facility], [address] | | | | | | [facility], [place], [place] | | | | | | [address] | | | | + + + + + + + + | Specimen | + + | Body Fluid | + + + + + + + | Performing | Address | City/State/Zipcode | Phone Number | | Organization | | | | + + + + + | [facility] | [address] [facility] | [place] [address] | [phone] | + + + + + Protein, Body Fluid (11/07/2018 15:15 PDT) + + + + + + | Component | Value | Ref Range | Performed | Pathologist | | | | | At | Signature | + + + + + + | Protein, BF | 3.4Comment: This is not | g/dL | [facility] | | | | a inventory control analyst validated | | LABORATORY | | | | sample type for this | | | | | | method. No | | | | | | referenceranges have | | | | | | been established.Testing | | | | | | performed at [facility], [address] | | | | | [address], | | | | | | [place] [address] | | | | + + + + + + | SOURCE | PLEURAL FLUIDComment: | | [facility] | | | | Testing performed at | | LABORATORY | | | | [facility];[address] [facility] [[email or web address] | | | | | | [address];[place] [address] | | | | + + + + + + + + | Specimen | + + | Body Fluid | + + + + + + + | Performing | Address | City/State/Zipcode | Phone Number | | Organization | | | | + + + + + | [facility] | [address] | [place] [address] | [phone] | + + + + + Lactate dehydrogenase, body fluid (11/07/2018 15:15 PDT) + + + + + + | Component | Value | Ref Range | Performed | Pathologist | | | | | At | Signature | + + + + + + | LDH, BODY | 102Comment: This is not | U/L | [facility] | | | FLUID | a inventory control analyst validated | | LABORATORY | | | | sample type for this | | | | | | method. No | | | | | | referenceranges have | | | | | | been established.Testing | | | | | | performed at [facility], [address] | | | | | | [address] [facility], | | | | | | [place] [address] | | | | + + + + + + + + | Specimen | + + | Body Fluid | + + + + + + + | Performing | Address | City/State/Zipcode | Phone Number | | Organization | | | | + + + + + | [facility] | [address] | [place] [address] | [phone] | + + + + + Glucose, Body Fluid (11/07/2018 15:15 PDT) + + + + + + | Component | Value | Ref Range | Performed | Pathologist | | | | | At | Signature | + + + + + + | Glucose | 96Comment: This is not a | mg/dL | [facility] | | | Fluid | inventory control analyst validated | | LABORATORY | | | | sample type for this | | | | | | method. No | | | | | | referenceranges have | | | | | | been established.Testing | | | | | | performed at [facility], [address] | | | | | [address], | | | | | | [place] [address] | | | | + + + + + + | SOURCE | PLEURAL FLUIDComment: | | [facility] | | | | Testing performed at | | LABORATORY | | | | [facility];[address] | | | | | | [address];[place] [address] | | | | + + + + + + + + | Specimen | + + | Body Fluid | + + + + + + + | Performing | Address | City/State/Zipcode | Phone Number | | Organization | | | | + + + + + | [facility] | [address] | [place] [address] | [phone] | + + + + + Cell [...] + + + | BF RBC | <58808 | /mm3 | [facility] | | | [...] | Counted | performed at [facility];[address] | | LABORATORY | | | | [address];[place], [place] | | | | | | [address] | | | | + + + + + + + + | Specimen | + + | Body Fluid | + + + + + + + | Performing | Address | City/State/Zipcode | Phone Number | | Organization | | | | + + + + + | [facility] | [address] | [place] [address] | [phone] | + + + + + Amylase, Body Fluid (11/07/2018 15:15 PDT) + + + + + + | Component | Value | Ref Range | Performed | Pathologist | | | | | At | Signature | + + + + + + | AMYLASE | 46Comment: This is not a | U/L | [facility] | | | FLUID | inventory control analyst validated | | LABORATORY | | | | sample type for this | | | | | | method. No | | | | | | referenceranges have | | | | | | been established.Testing | | | | | | performed at [facility], [address] | | | | | [address], | | | | | | [place] [address] | | | | + + + + + + + + | Specimen | + + | Body Fluid | + + + + + + + | Performing | Address | City/State/Zipcode | Phone Number | | Organization | | | | + + + + + | [facility] | [address] | [place] [address] | [phone] | + + + + + Albumin, Body Fluid (11/07/2018 15:15 PDT) + + + + + + | Component | Value | Ref Range | Performed | Pathologist | | | | | At | Signature | + + + + + + | Albumin, | 2.0Comment: This is not | g/dL | [facility] | | | Fluid | a inventory control analyst validated | | LABORATORY | | | | sample type for this | | | | | | method. No | | | | | | referenceranges have | | | | | | been established.Testing | | | | | | performed at [facility], [address] | | | | | | [address], | | | | | | [place] [address] | | | | + + + + + + + + | Specimen | + + | Body Fluid | + + + + + + + | Performing | Address | City/State/Zipcode | Phone Number | | Organization | | | | + + + + + | [facility] | [address] | [place] [address] | [phone] | + + + + + Medical Cytology (11/07/2018 15:15 PDT) + + | Specimen | + + | Body Fluid | + + + + + | Narrative | Performed At | + + + | ORDERING | [facility] | | PHYSICIAN:Dex ALMEIDA, Darell U [...] | | | preparation was performed by [facility], [address] | | | [place] [address] (Neuropsychology Service Director: Matt Claudio D.O.; | | | CLIA#: [id number]).Professional interpretation was performed by | | | [facility], | | | [place] [address] (Neuropsychology Service Director: Daniel Larson M.D.; | | | CLIA#: [id number]).6 Diagnostician: Enrrique Nichols | | | CT([facility])CytotechnologistDiagnostician: Daniel Larson | | | MDPathologistElectronically Signed 11/13/2018 | | |DESCRIPTION: | | |The preparations contain mesothelial cells, rare inflammatory cells, and acellular proteina ceous material. Atypical cytologic findings are not encountered. | | | | | |SPECIMEN ADEQUACY: | | |Satisfactory for Evaluation | | | | | |PERFORMING LABORATORY: | | |Technical preparation was performed by [facility], [address] [place] [address] (Neuropsychology Service Director: Matt Claudio D.O.; CLIA#: [id number]). | | |Professional interpretation was performed by [facility], [address] [place] [address] (Neuropsychology Service Director: Daniel Larson M.D.; [facility]# : [id number]).6 | | | | | |Diagnostician: Enrrique BROOKS([facility]) | | |Tourism Radio Presenter | | |Diagnostician: Daniel Larson MD | [...] | | | | | [facility];[address] [facility] [[email or web address] | | | | | | [address];[place] [address] | | | | + + + + + + + + | Specimen | + + | Blood | + + + + + + + | Performing | Address | City/State/Zipcode | Phone Number | | Organization | | | | + + + + + | [facility] | [address] | [place] [address] | [phone] | + + + + + ECG [...] | performed at [facility] | | | | | | [address];[place], [place] | | | | | | [address] | | | | + + + + + + + + | Specimen | + + | Blood | + + + + + + + | Performing | Address | City/State/Zipcode | Phone Number | | Organization | | | | + + + + + | [facility] | [address] | [place] [address] | [phone] | + + + + + Platelet Count (11/07/2018 4:03 PDT) + + + + + + | Component | Value | Ref Range | Performed | Pathologist | | | | | At | Signature | + + + + + + | Platelet | 185Comment: Testing | 150 - 400 K/uL | [facility] | | | Count | performed at [facility], [address] | | LABORATORY | | | | [address], | | | | | | [place] [address] | | | | + + + + + + + + | Specimen | + + | Blood | + + + + + + + | Performing | Address | City/State/Zipcode | Phone Number | | Organization | | | | + + + + + | [facility] | [address] | [place] [address] | [phone] | + + + + + PTT (11/07/2018 4:03 PDT) + + + + + + | Component | Value | Ref Range | Performed | Pathologist | | | | | At | Signature | + + + + + + | PTT | 27Comment: Testing | 23 - 32 seconds | [facility] | | | | performed at [facility];[address] | | LABORATORY | | | | [address];[place] | | | | | | [address] | | | | + + + + + + + + | Specimen | + + | Blood | + + + + + + + | Performing | Address | City/State/Zipcode | Phone Number | | Organization | | | | + + + + + | [facility] | [address] | [place] [address] | [phone] | + + + + + Lactate [...] | performed at [facility];[address] | | LABORATORY | | | | [facility];[place], [place] | | | | | | [address] | | | | + + + + + + + + | Specimen | + + | Blood | + + + + + + + | Performing | Address | City/State/Zipcode | Phone Number | | Organization | | | | + + + + + | [facility] | [address] | [place] [address] | [phone] | + + + + + Magnesium (11/07/2018 4:03 PDT) + + + + + + | Component | Value | Ref Range | Performed | Pathologist | | | | | At | Signature | + + + + + + | Magnesium | 2.3Comment: Testing | 1.7 - 2.4 mg/dL | [facility] | | | | performed at [facility];[address] | | LABORATORY | | | | [address];[place] | | | | | | [address] | | | | + + + + + + + + | Specimen | + + | Blood | + + + + + + + | Performing | Address | City/State/Zipcode | Phone Number | | Organization | | | | + + + + + | [facility] | [address] | [place] [address] | [phone] | + + + + + Comprehensive [...] | | | | | performed at [facility], [address] | | | | | | [facility], | | | | | | [place] [address] | | | | + + + + + + + + | Specimen | + + | Blood | + + + + + + + | Performing | Address | City/State/Zipcode | Phone Number | | Organization | | | | + + + + + | [facility] | [address] | [place] [address] | [phone] | + + + + + Troponin I (11/06/2018 21:54 PDT) + + + + + + | Component | Value | Ref Range | Performed | Pathologist | | | | | At | Signature | + + + + + + | Troponin T | 0.045 (H)Comment: 0.04 | 0.00 - 0.04 | [facility] | | | | ng/mL [...] | | | | | [facility];[address] [place] [address] | | | | | | [facility];[place] [address] | | | | + + + + + + + + | Specimen | + + | Blood | + + + + + + + | Performing | Address | City/State/Zipcode | Phone Number | | Organization | | | | + + + + + | [facility] | [address] | [place] [address] | [phone] | + + + + + Protime INR (11/06/2018 17:32 PDT) + + + + + + | Component | Value | Ref Range | Performed | Pathologist | | | | | At | Signature | + + + + + + | INR | 1.3Comment: REFERENCE | | [facility] | | | | RANGE:0.9 - [...] | | | | | [address];[place] | | | | | | [address] | | | | + + + + + + + + | Specimen | + + | Blood | + + + + + + + | Performing | Address | City/State/Zipcode | Phone Number | | Organization | | | | + + + + + | [facility] | [address] | [place] [address] | [phone] | + + + + + ECHO [...] | | | | | [facility];[address] [facility] [[email or web address] | | | | | | Blvd;[place] [address] | | | | + + + + + + + + | Specimen | + + | Blood | + + + + + + + | Performing | Address | City/State/Zipcode | Phone Number | | Organization | | | | + + + + + | [facility] | [address] | [place] [address] | [phone] | + + + + + Magnesium (11/06/2018 15:57 PDT) + + + + + + | Component | Value | Ref Range | Performed | Pathologist | | | | | At | Signature | + + + + + + | Magnesium | 2.4Comment: Testing | 1.7 - 2.4 mg/dL | [facility] | | | | performed at [facility], [address] | | LABORATORY | | | | [address], | | | | | | [place] [address] | | | | + + + + + + + + | Specimen | + + | Blood | + + + + + + + | Performing | Address | City/State/Zipcode | Phone Number | | Organization | | | | + + + + + | [facility] | [address] | [place] [address] | [phone] | + + + + + documented [...] | + + | ESRD on hemodialysis ([facility]) End stage renal disease | + [...]
--- OUTSIDE RECORDS SUMMARY | ~2018-12-09 | XMS | Encounter Summary ---
Demographics + + + | Address | [address] | | | [place] [address] | + + + | Home Phone [...] | | | | | [place] [address] | | + + + + + | Thania Mallory | ECON | [address] | | | | | [place] [address] | | + + + + + | Deidra Weldon | ECON | [address] | | | | | [place] | | | | | [address] | | + + + + + Care Team Providers + +------+ + | Care Manager Linux Name | Role | Phone | + [...] | Update | | | | [facility] | [address] | | | | | [address] [place], [place] | [place], [place] | | | | | [address] | [address] | | | | | [phone] | [phone] | | | | | | | [...] Denise | | | | | | [place], [place] | | | | | | [address] | | | | | | [phone] | | | | | | | | +--------+ + + + + documented as of this encounter Visit Diagnoses Not on filedocumented in this encounter"
--- OUTSIDE RECORDS SUMMARY | ~2018-12-09 | XMS | Encounter Summary ---
Demographics + + + | Address | [address] | | | [place] [address] | + + + | Home Phone [...] | | | | | [place] [address] | | + + + + + | Thania Mallory | ECON | [address] | | | | | [place] [address] | | + + + + + | Deidra Weldon | ECON | [address] | | | | | [place] | | | | | [address] | | + + + + + Care Team Providers + +------+ + | Care Motel Maid Name | Role | Phone | + [...] date) | | | | ANNALISA Hoffmann [facility] | [facility] | | | | | Rd [place], [place] | [place], [place] | | | | | [address] | [address] | | | | | [phone] | | | +--------+ + + + [...] Denise | | | | | | [place], [place] | | | | | | [address] | | | | | | [phone] | | | | | | | | +--------+ + + + + documented as of this encounter Visit Diagnoses Not on filedocumented in this encounter"
--- OUTSIDE RECORDS SUMMARY | ~2018-12-09 | XMS | Encounter Summary ---
Demographics + + + | Address | [address] | | | [place] [address] | + + + | Home Phone [...] | | | | | [place] [address] | | + + + + + | Thania Mallory | ECON | [address] | | | | | [place] [address] | | + + + + + | Deidra Weldon | ECON | [address] | | | | | [place] | | | | | [address] | | + + + + + Care Team Providers + +------+ + | Care Industrial Order Clerk Name | Role | Phone | [...] Shun | | | | | ANNALISA [facility] | [facility] | | | | | Rd [place], [place] | [place], [place] | | | | | [address] | [address] | | | | | [phone] | | | +--------+ + + + [...] [place] | | | | | | [address] | | | | | | [phone] | | | | | | | | +--------+ + + + + documented as of this encounter Visit Diagnoses Not on filedocumented in this encounter"
--- OUTSIDE RECORDS SUMMARY | ~2018-12-09 | XMS | Encounter Summary ---
Demographics + + + | Address | [address] | | | [place] [address] | + + + | Home Phone [...] | | | | | [place] [address] | | + + + + + | Thania Mallory | ECON | [address] | | | | | [place] [address] | | + + + + + | Deidra Weldon | ECON | [address] | | | | | [place] | | | | | [address] | | + + + + + [...] Hoffmann | Recommendations | | | | Aleaxnder | [address] | | | | | [facility] | [place], [place] | | | | | [address] | [address] | | | | | Caro Chan Mailcode: | [phone] | | | | | [address] | | | | | | [place], [place] | | | | | | [address] | | | | | | [phone] | | | +--------+ + + + [...] [place] | | | | | | [address] | | | | | | [phone] | | | | | | | | +--------+ + + + + documented as of this encounter Visit Diagnoses Not on filedocumented in this encounter"
--- OUTSIDE RECORDS SUMMARY | ~2018-12-09 | XMS | Encounter Summary ---
Demographics + + + | Address | [address] | | | [place] [address] | + + + | Home Phone [...] | | | | | [place] [address] | | + + + + + | Thania Mallory | ECON | [address] | | | | | [place] [address] | | + + + + + | Deidra Weldon | ECON | [address] | | | | | [place] | | | | | [address] | | + + + + + Care Team Providers + +------+ + | Care Wildlife Refuge Specialist Name | Role | Phone | [...] | | | [place], | [place] [address] | | | | | [place] [address] | [phone] | | | | | | | [...] [place] | | | | | | [address] | | | | | | [phone] | | | | | | | [...] [facility] - | [address] | [place] [address] | | | IMMUNOGENETICS/TRANS | [address] | | | | PLANT LAB[facility]ATORY | | | | + + + + + documented in this encounter Visit Diagnoses Not on filedocumented in this encounter"
--- OUTSIDE RECORDS SUMMARY | ~2018-12-09 | XMS | Encounter Summary ---
Demographics + + + | Address | [address] | | | [place] [address] | + + + | Home Phone [...] | | | | | [place] [address] | | + + + + + | Thania Mallory | ECON | [address] | | | | | [place] [address] | | + + + + + | Deidra Weldon | ECON | [address] | | | | | [place] | | | | | [address] | | + + + + + Care Team Providers + +------+ + | Care Bronze Plater Name | Role | Phone | [...] | | Nephrology at | MD Emanuel [address] | | | | | [address] | [address] | | | | | [facility] | [place], [place] | | | | | [address] | [address] | | | | | Caro hCan Mailcode: | [phone] | | | | | [address] | | | | | | [place], [place] | | | | | | [address] | | | | | | [phone] | | | +--------+ + + + [...] Denise | | | | | | [place], [place] | | | | | | [address] | | | | | | [phone] | | | | | | | [...] [facility] | [address] | [place] [address] | [phone] | | [facility] | | | | [...] [facility] | [address] | [place] [address] | [phone] | | HOSPITAL | | | | [...] [address] | [place] [address] | [phone] | | HOSPITAL | | | | [...] | [address] | [place] [address] | [phone] | | HOSPITAL | | | | [...] | [address] | [place] [address] | [phone] | | HOSPITAL | | | | [...] | [address] | [place] [address] | [phone] | | HOSPITAL | | | | + + + + + documented in this encounter Visit Diagnoses Not on filedocumented in this encounter"
--- OUTSIDE RECORDS SUMMARY | ~2018-12-09 | XMS | Encounter Summary ---
Demographics + + + | Address | [address] | | | [place] [address] | + + + | Home Phone [...] | | | | | [place] [address] | | + + + + + | Thania Mallory | ECON | [address] | | | | | [place] [address] | | + + + + + | Deidra Weldon | ECON | [address] | | | | | [place] | | | | | [address] | | + + + + + Care Team Providers + +------+ + | Care Data Collection Technician Name | Role | Phone | [...] | | 2012 | anned | [address] | | | | | | [address] | | | | | | [place], [place] | | | | | | [address] | | | +--------+ + + + [...] Denise | | | | | | [place], [place] | | | | | | [address] | | | | | | [phone] | | | | | | | | +--------+ + + + + documented as of this encounter Visit Diagnoses Not on filedocumented in this encounter"
--- OUTSIDE RECORDS SUMMARY | ~2018-12-09 | XMS | Encounter Summary ---
Demographics + + + | Address | [address] | | | [place] [address] | + + + | Home Phone [...] | Author | [facility] | | | and Josephana | + + + | Organization | [facility] [...] Providers + +------+ + | Care Site Acquisition Manager Name | Role | Phone | [...] + + | 11/15/ | Telephone | [facility] | George Torres RN | Lab Results | | 2019 | | [address] | | (Cytology report) | | | | [place] | | | | | | [address] | | | | | | [phone] | | | +--------+ + + + [...] | | | | | [place] [address] | | | | | | [phone] | | | | | | | | +--------+---------+ + + + documented as of this encounter Visit Diagnoses Not on filedocumented in this encounter"
--- OUTSIDE RECORDS SUMMARY | ~2018-12-09 | XMS | Encounter Summary ---
Demographics + + + | Address | [address] | | | [place] [address] | + + + | Home Phone [...] | | | | | [place] [address] | | + + + + + | Deidra Weldon | ECON | [address] | | | | | [place] | | | | | [address] | | + + + + + Care Team Providers + +------+ + | Care Stick Inserter Name | Role | Phone | [...] Update | | | | ANNALISA Hoffmann [facility] | [address] | | | | | Rd [place], [place] | [place], [place] | | | | | [address] | [address] | | | | | [phone] | [phone] | | | | | | | [...] Denise | | | | | | [place], [place] | | | | | | [address] | | | | | | [phone] | | | | | | | | +--------+ + + + + documented as of this encounter Visit Diagnoses Not on filedocumented in this encounter"
--- OUTSIDE RECORDS SUMMARY | ~2018-12-09 | XMS | Encounter Summary ---
Demographics + + + | Address | [address] | | | [place] [address] | + + + | Home Phone [...] | | | | | [place] [address] | | + + + + + | Thania Mallory | ECON | [address] | | | | | [place] [address] | | + + + + + | Deidra Weldon | ECON | [address] | | | | | [place] | | | | | [address] | | + + + + + Care Team Providers + +------+ + | Care Pottery Machine Operator Name | Role | Phone [...] | | | | | Caro [place], | | | | | | [place] [address] | | | +--------+ + + + [...] | | | | | | [place], [place] | | | | | | [address] | | | | | | [phone] | | | | | | | [...] [facility] - | [address] | [place] [address] | | | IMMUNOGENETICS/TRANS | [address] | | | | PLANT LABORATORY | | | | + + + + + documented in this encounter Visit Diagnoses + + | Diagnosis | + + | End stage renal disease (HCC) End stage renal disease | + + documented in this encounter"
--- OUTSIDE RECORDS SUMMARY | ~2018-12-09 | XMS | Encounter Summary ---
Demographics + + + | Address | [address] | | | [place] [address] | + + + | Home Phone [...] | | | | | [place] [address] | | + + + + + | Thania Mallory | ECON | [address] | | | | | [place] [address] | | + + + + + | Deidra Weldon | ECON | [address] | | | | | [place] | | | | | [address] | | + + + + + Care Team Providers + +------+ + | Care Advertising Photographer Name | Role | Phone | + +------+ + | Jonathan Alonso MD | PCP | | + +------+ + Encounter Details +--------+------+ + + + | Date | Type | Department | Care Team | Description | +--------+------+ + + + | 01/20/ | Lab | [facility] at [facility] | | 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 [address] | | MEDICARE [address]; [facility] | | | | [address] | | ([place] | | | | [place], [place]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; | | | | [address] | | Hemodialysis status | | | | [phone] | | ([facility]); Chronic | | | | | | kidney disease, | | | | | | stage V ([facility]) | +--------+------+ + + + [...] 2022 | Encounter | | [address] | | | | | | [place], [place] | | | | | | [address] | | | | | | [phone] | | | | | | | [...] | e | 9:59 AM | MEDICARE [address] [facility] | procedure are in the | [...] ([facility]) | | + +--------+ [...] ([facility]) | | + +--------+ [...] ([facility]) | | + +--------+ [...] ([facility]) | | + +--------+ [...] ([facility]) | | + +--------+ + + + | HIV-1,2 AB/HIV-1 P24 | Routin | 01/20/2015 | Allergic purpura- | Results for this | | AG SCRN | e | 9:59 AM | MEDICARE [address] | procedure are in the | | | | PST | ([facility] | results section. | | [...] the | | | | PST | ([facility] | results section. | | | [...] | | | | PST | ([facility] | results section. | | [...] | | | | PST | ([facility] | results section. | | [...] the | | | | PST | ([facility] | results section. | | [...] the | | | | PST | ([facility] | results section. | | | [...] the | | | | PST | ([facility] | results section. | | [...] | + + + + + | [place] - | [address] | [place] [address] | | | [place] | | | | + + + [...] [facility] | [address] | [place] [address] | | | SERVICES, CORE | PARK [...] [facility] | [address] | [place] [address] | | | SERVICES, SPECIAL | PARK [...] + + + | [facility] | [address] | [place] [address] | | | DIAGNOSTIC | [address] [...] + | [place] [facility] - | [address] | [place] [address] | | | [place] | | | [...] + | [facility] - | [address] | [place] [address] | | | [facility] | | | | + + [...] + | [facility] - | [address] | [place] [address] | | | [place] | | | [...] | + + + + + | [facility] - | [address] | [place] [address] | | | [facility] | | | | + + + [...] by | | | | | | 1SDK,500 | | | | | | Pippa Sauceda, [facility] [place] | | | | | | [address] | | | | | | [phone]. | | | | | | Faisal [...] [facility] | [address] | [place], [place] | | | [facility] | | [address] | | + + + + + [...] + | [facility] [facility] - | [address] | [place] [address] | | | [place] | | | | + + + [...] by | | | | | | [facility],[address] | | | | | | [place] | | | | | | [address] | | | | | | [phone]. | | | | | | [...] [facility] | [address] | [place], [place] | | | [facility] | | [address] | | + + + + + [...] [facility] | [address] | [place] [address] | | | SERVICES, CORE | PARK [...] [facility] | [address] | [place] [address] | | | SERVICES, CORE | PARK [...] [facility] | [address] | [place] [address] | | | [address] | LONG [...] [facility] | [address] | [place] [address] | | | SERVICES, CORE | PARK [...] + | [facility] | [address] | [place] [address] | | | SERVICES, [facility] | [address] | | | + [...] | | | LABORATORY | | | IRISH | | | SERVICES, | | | [...] | + + + + + | [facility] | [address] | [place] [address] | | | SERVICES, CORE | LONG [...]
--- OUTSIDE RECORDS SUMMARY | ~2018-12-09 | XMS | Encounter Summary ---
Demographics + + + | Address | [address] | | | [place] [address] | + + + | Home Phone [...] | | | | | [place] [address] | | + + + + + | Thania Mallory | ECON | [address] | | | | | [place] [address] | | + + + + + | Deidra Weldon | ECON | [address] | | | | | [place] | | | | | [address] | | + + + + + Care Team Providers + +------+ + | Care Candle Molder Hand Name | Role | Phone | + +------+ + | Shahid Camargo MD | PCP | Unavailable | + +------+ + Reason for Visit +--------+ + | Reason | Comments | +--------+ + | Other | Requested [id number] | +--------+ + Encounter Details +--------+ + + + + | Date | Type | Department | Care Team | Description | +--------+ + + + + | 11/15/ | Telephone | Transplant | Jesus Edmond, | Other (Requested | | 2012 | | Coordinators [address] | [address] | [id number]) | | | | [address] Hoffmann [facility] | [facility] [address] | | | | | Rd [place], [place] | [place], [place] | | | | | [address] | [address] | | | | | [phone] | [phone] | | | | | | | [...] Denise | | | | | | [place], [place] | | | | | | [address] | | | | | | [phone] | | | | | | | | +--------+ + + + + documented as of this encounter Visit Diagnoses Not on filedocumented in this encounter"
--- OUTSIDE RECORDS SUMMARY | ~2018-12-09 | XMS | Encounter Summary ---
Demographics + + + | Address | [address] | | | [place] [address] | + + + | Home Phone [...] | | | | | [place] [address] | | + + + + + | Thania Mallory | ECON | [address] | | | | | [place] [address] | | + + + + + | Deidra Weldon | ECON | [address] | | | | | [place] | | | | | [address] | | + + + + + Care Team Providers + +------+ + | Care Knife Setter Assembler Name | Role | Phone | [...] | | | | | [place], | [place], [place] | | | | | | [place] | [address] | | | | | | [address] | Phone: | | | | | | Phone: | [phone] | | | | | | [phone] | | | | | | | Fax: | | | | | | | [phone] | | +--------+--------+ + + + + Encounter Details +--------+---------+ + + + | Date | Type | Department | Care Team | Description | +--------+---------+ + + + | 11/16/ | Office | Specialty Clinics | Sudhakar Joy | Allergic purpura- | | 2015 | Visit | at [facility] [address] | [place], [address] | MEDICARE [address] | | | | [address] | [address] | (Primary Dx); [facility] | | | | Mailcode: [facility] | [place], [place] | ([place] | | | | [address] | [address] | purpura) nephritis; | | | | [place], [place] | [phone] | Anemia of chronic | | | | [address] | | kidney failure, | | | | [phone] | Rtx, P[address] | unspecified stage | | | | | [address] | | | | | | Road [place], [place] | | | | | | [address] | | +--------+---------+ + + + Social [...] soon. Have your friend call Brittney about [phone] Sudhakar Joy MD documented in this encounter [...] Services [address] Mail code [facility] [place], [place] [address] documented in this encounter Plan [...] [place] | | | | | | [address] | | | | | | [phone] | | | | | | | [...]
--- OUTSIDE RECORDS SUMMARY | ~2018-12-09 | XMS | Encounter Summary ---
Demographics + + + | Address | [address] | | | [place] [address] | + + + | Home Phone [...] | | | | | [place] [address] | | + + + + + | Thania Mallory | ECON | [address] | | | | | [place] [address] | | + + + + + | Deidra Weldon | ECON | [address] | | | | | [place] | | | | | [address] | | + + + + + Care Team Providers + +------+ + | Care Regulatory Affairs Spec Name | Role | Phone | + +------+ + | Shahid Camargo MD | PCP | Unavailable | + +------+ + Encounter Details +--------+------+ + + + | Date | Type | Department | Care Team | Description | +--------+------+ + + + | 12/20/ | Lab | Lab Center at [facility] | | Allergic purpura- | | 2012 | | 7th Floor [address] | | MEDICARE [address] | | | | [address] | | (Primary Dx) | | | | [place], [place] | | | | | | [address] | | | | | | [phone] | | | +--------+------+ + + + [...] | | | | | | [place], [place] | | | | | | [address] | | | | | | [phone] | | | | | | | [...] - | [address] | [place], [place] | | | IMMUNOGENETICS/TRANS | Suite [...] - | [address] | [place], [place] | | | IMMUNOGENETICS/TRANS | Suite [...] | [facility] - | [address] | [place] [address] | | | IMMUNOGENETICS/TRANS | [address] [...] [facility] - | [address] | [place] [address] | | | IMMUNOGENETICS/TRANS | [address] [...] + | [facility] - | [address] | [place] [address] | | | IMMUNOGENETICS/TRANS | [address] [...] [facility] - | [address] | [place], [place] | | | IMMUNOGENETICS/TRANS | [address] [...] [facility] - | [address] | [place], [place] | | | IMMUNOGENETICS/TRANS | [address] [...] [facility] - | [address] | [place] [address] | | | IMMUNOGENETICS/TRANS | [address] [...] [facility] - | [address] | [place] [address] | | | IMMUNOGENETICS/TRANS | [address] [...] + + + + + | [facility] | [address] | [place] [address] | | | SERVICES, | [address] [...] [facility] | [address] | [place] [address] | | | SERVICES, | [address] [...] + + + + + | [facility] | [address] | [place] [address] | | | SERVICES, CORE | PARK [...] UNIV | | | | [place], [facility] [place] | | PTH - INTFC | | | | [address] | | | | | | [phone].aruplab. | | | | | | Faisal [...] [facility] | [address] | [place], [place] | | | UNIV PTH - INTFC | | [address] | | + + + + + [...] + + + | [facility] | [address] | [place] [address] | | | SERVICES, HOMERO | PARK [...] + + + + + | [facility] | [address] | [place] [address] | | | SERVICES, CORE | PARK [...] + | [facility] | [address] | [place] [address] | | | [place] | | | [...] [facility] | [address] | [place] [address] | | | SERVICES, CORE | PARK [...] [facility] | [address] | [place] [address] | | | SERVICES, CORE | PARK [...] + + + + + | [facility] | [address] | [place] [address] | | | SERVICES, CORE | PARK [...] - | | | | | | [place] | | + + + + + + + + | Specimen | + + | Blood - Blood | + + + + + + + | Performing | Address | City/State/Zipcode | Phone Number | | Organization | | | | + + + + + | [facility] | [address] | [place] [address] | | | [place] | | | [...] | | | at: | | | http://www.cdc.gov/nchstp/tb/pubs/tbfactssheets/269548.htm | | | Test performed by: [facility] | | | [facility] [address] Jac[address] [place] [address] | | | | | + + [...] [facility] | [address] | [place] [address] | | | SERVICES, SPECIAL | PARK [...] gene at | DIAGNOSTIC | | nucleotide [address]2926. Please note that this assay only detects the | LABORATORIES | | [id number] point mutation and therefore a normal result [...] has been analyzed for the presence of [id number] | | | mutation in the prothrombin [...] | above. Heterozygotes for the common prothrombin I16664C mutation | | | constitute approximately 2% of the normal white population (1,2). | | | References: 1.) Edwinat et al. Blood 88, 1712-6642 (1995). 2.) Ricardo | | | et al. Circulation 99, 999-1004 (1998). 3.) Al Montalvo, and | | | Press. Amer J Clin Path 155, 439-47 (2001). This test was | | | developed and its performance characteristics determined by the [facility] | | | [facility]. It has | | | not been cleared or approved by the Food and Drug | | | Administration. FDA approval is not required for clinical use of | | | this test, and therefore validation was done as required under the | | | requirements of the Clinical Laboratory Improvement Act of | | | 1988. The [facility] | | | Center is a fully licensed and/or accredited clinical laboratory under | | | CLIA, [facility], and the [facility]. Please note that our lab now | [...] + | Performing | Address | City/State/Unm [facility] Tingley Hospitalcode | Phone Number | | Organization | | | | + + + + + | [facility] | [address] | [place] [address] | | | DIAGNOSTIC | [address] [...] + + + | [facility] | [address] | [place] [address] | | | SERVICES, CORE | PARK [...] + + + + + | [facility] | [address] | [place] [address] | | | SERVICES, CORE | PARK [...] [facility] | [address] | [place] [address] | | | SERVICES, CORE | LONG [...] ranges for full anticoagulation: INR for | [facility] | | Venous Thromboembolism (2.0 - 3.0) INR INR | LABORATORY | | for most patients with mech. valves (2.5 - 3.5) INR | SERVICESHOMERO | + + + + + + + + | Performing | Address | City/State/Zipcode | Phone Number | | Organization | | | | + + + + + | [facility] | [address] | [place] [address] | | | SERVICES, HOMERO | LONG [...] | | | | | | [place] [address] | | | | | | [phone].aruplab. | | | | | | Faisal [...] [facility] | [address] | [place], [place] | | | UNIV PTH - INTFC | | [address] | | + + + + + [...] | + + + + + | [facility] | [address] | [place] [address] | | | SERVICES, SPECIAL | PARK [...] + + + + | [facility] | [address] | [place] [address] | | | DIAGNOSTIC | [address] [...] + | [facility] | [address] | [place] [address] | | | [place] | | | [...] + | [facility] | [address] | [place] [address] | | | [place] | | | [...] + | [facility] | [address] | [place] [address] | | | [place] | | | | + + + [...] + | [facility] - | [address] | [place] [address] | | | [place] | | | [...] less......Not | | | | | | Gffpcazq60.0-21.9 | | | | | | U/mL.........Indetermina [...] available | | | | | | [email or web address] | | | | | | vdx.Performed by [facility] | | | | | | [facility],[address] | | | | | | Rajendra, [facility] [place] [address] | | | | | | [phone].Datavolutionuplab. | | | | | | Faisal [...] [facility] | [address] | [place], [place] | | | UNIV PTH - INTFC | | [address] | | + + + + + [...] + | [facility] | [address] | [place] [address] | | | [place] | | | | + + + [...] [facility] | [address] | [place] [address] | | | SERVICES, CORE | LONG [...] by | | | | | | EPS,[address] | | | | | | [place], [facility] [place] | | | | | | [address] | | | | | | [phone].[employer] Search. 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
--- OUTSIDE RECORDS SUMMARY | ~2018-12-09 | XMS | Encounter Summary ---
Demographics + + + | Address | [address] | | | [place] [address] | + + + | Home Phone [...] | | | | | [place] [address] | | + + + + + | Thania Mallory | ECON | [address] | | | | | [place] [address] | | + + + + + | Deidra Weldon | ECON | [address] | | | | | [place] | | | | | [address] | | + + + + + Care Team Providers + +------+ + | Care Table Attendant Name | Role | Phone [...] | ABO) | | | | [address] [facility] | [facility] | | | | | Rd [place], [place] | [place], [place] | | | | | [address] | [address] | | | | | [phone] | | | +--------+ + + + [...] | | | | | | [place], [place] | | | | | | [address] | | | | | | [phone] | | | | | | | [...] + + | [facility] - | [address] | [place] | [phone] | | [place] | | | | + + + + + documented in this encounter Visit Diagnoses Not on filedocumented in this encounter"
--- OUTSIDE RECORDS SUMMARY | ~2018-12-09 | XMS | Encounter Summary ---
Demographics + + + | Address | [address] | | | [place] [address] | + + + | Home Phone [...] | | | | | [place] [address] | | + + + + + | Thania aMllory | ECON | [address] | | | | | [place] [address] | | + + + + + | Deidra Weldon | ECON | [address] | | | | | [place] | | | | | [address] | | + + + + + Care Team Providers + +------+ + | Care Ring Maker Name | Role | Phone | [...] | | Nephrology at | MD Emanuel [address] | | | | | [place] | [address] | | | | | [facility] | [place], [place] | | | | | [address] | [address] | | | | | Caro [place] Mailcode: | [phone] | | | | | [address] | | | | | | [place], [place] | | | | | | [address] | | | | | | [phone] | | | +--------+ + + + [...] Denise | | | | | | [place], [place] | | | | | | [address] | | | | | | [phone] | | | | | | | [...] [facility] | [address] | [place] [address] | [phone] | | HOSPITAL | | | | [...] | [address] | [place] [address] | [phone] | | HOSPITAL | | | | [...] [address] | [place] [address] | [phone] | | HOSPITAL | | | | [...] | [address] | [place] [address] | [phone] | | HOSPITAL | | | | [...] | [address] | [place] [address] | [phone] | | HOSPITAL | | | | [...] | [address] | [place] [address] | [phone] | | HOSPITAL | | | | + + + + + documented in this encounter Visit Diagnoses Not on filedocumented in this encounter"
--- OUTSIDE RECORDS SUMMARY | ~2018-12-09 | XMS | Encounter Summary ---
Demographics + + + | Address | [address] | | | [place] [address] | + + + | Home Phone [...] | | | | | [place] [address] | | + + + + + | Thania Mallory | ECON | [address] | | | | | [place] [address] | | + + + + + | Deidra Weldon | ECON | [address] | | | | | [place] | | | | | [address] | | + + + + + Care Team Providers + +------+ + | Care Solar Energy Sales Specialist Name | Role | Phone | + +------+ + | Shahid Cmaargo MD | PCP | Unavailable | + +------+ + Encounter Details +--------+ + + + + | Date | Type | Department | Care Team | Description | +--------+ + + + + | 12/20/ | Hospital | Radiology at [facility] | | | | 2012 | Encounter | [address] | | | | | | [place] Mailcode: | | | | | | [address] | | | | | | [place], [place] | | | | | | [address] | | | | | | [phone] | | | +--------+ + + + [...] [place] | | | | | | [address] | | | | | | [phone] | | | | | | | [...]
--- OUTSIDE RECORDS SUMMARY | ~2018-12-09 | XMS | Encounter Summary ---
Demographics + + + | Address | [address] | | | [place] [address] | + + + | Home Phone [...] | | | | | [place] [address] | | + + + + + | Thania Mallory | ECON | [address] | | | | | [place] [address] | | + + + + + | Deidra Weldon | ECON | [address] | | | | | [place] | | | | | [address] | | + + + + + [...] issues with | | | | Rd [place], [place] | [place], [place] | pt's dad) | | | | [address] | [address] | | | | | [phone] | | | +--------+ + + + [...] [place] | | | | | | [address] | | | | | | [phone] | | | | | | | | +--------+ + + + + documented as of this encounter Visit Diagnoses Not on filedocumented in this encounter"
--- OUTSIDE RECORDS SUMMARY | ~2018-12-09 | XMS | Encounter Summary ---
Demographics + + + | Address | [address] | | | [place] [address] | + + + | Home Phone [...] | | | | | [place] [address] | | + + + + + | Thania Mallory | ECON | [address] | | | | | [place] [address] | | + + + + + | Deidra Weldon | ECON | [address] | | | | | [place] | | | | | [address] | | + + + + + Care Team Providers + +------+ + | Care Clinical Social Work Aide Name | Role | Phone | [...] Mailcode: | | | | | | [address] | [facility] | | | | | | [address] | [place] | | | | | | [place], | [place], [place] | | | | | | [place] | [address] | | | | | | [address] | Phone: | | | | | | Phone: | [phone] | | | | | | [phone] | | | | | | | Fax: | | | | | | | [phone] | | +--------+--------+ + + + + Encounter Details +--------+---------+ + + + | Date | Type | Department | Care Team | Description | +--------+---------+ + + + | 01/20/ | Office | Specialty Clinics | Sudhakar Joy | [facility] | | 2014 | Visit | at [facility] [address] MD [address] | ([place] | | | | [address] | [address] | purpura) nephritis | | | | Mailcode: DC7 | [place], [place] | (Primary Dx); | | | | [place] | [address] | Allergic purpura- | | | | [place], [place] | [phone] | MEDICARE 2728; | | | | [address] | | Anemia of chronic | | | | [phone] | | kidney failure, | | | [...] [address] Mail code [facility] [place], [place] [id number] documented in this encounter Plan of Treatment +--------+ + + + + | Date | Type | Specialty | Care Team | Description | +--------+ + + + + | 05/04/ | Hospital | Adult Acute Care | El Starr MD | | | 2022 | Encounter | | [address] | | | | | | [place], [place] | | | | | | [address] | | | | | | [phone] | | | | | | | [...]
--- OUTSIDE RECORDS SUMMARY | ~2018-12-09 | XMS | Encounter Summary ---
Demographics + + + | Address | [address] | | | [place] [address] | + + + | Home Phone [...] | | | | | [place] [address] | | + + + + + | Thania Mallory | ECON | [address] | | | | | [place] [address] | | + + + + + | Deidra Weldon | ECON | [address] | | | | | [place] | | | | | [address] | | + + + + + Care Team Providers + +------+ + | Care Liquor Grinding Mill Operator Name | Role | Phone | [...] [address] [facility] | [facility] | | | | | Rd [place], [place] | [place], [place] | | | | | [address] | [address] | | | | | [phone] | | | +--------+ + + + [...] Den[address] | | | | | | [place] | | | | | | [address] | | | | | | [phone] | | | | | | | | +--------+ + + + + documented as of this encounter Visit Diagnoses Not on filedocumented in this encounter"
--- OUTSIDE RECORDS SUMMARY | ~2018-12-09 | XMS | Encounter Summary ---
Demographics + + + | Address | [address] | | | [place] [address] | + + + | Home Phone [...] | | | | | [place] [address] | | + + + + + | Thania Mallory | ECON | [address] | | | | | [place] [address] | | + + + + + | Deidra Weldon | ECON | [address] | | | | | [place] | | | | | [address] | | + + + + + Care Team Providers + +------+ + | Care Drawing Supervisor Name | Role | Phone | [...] Rd | | | | | [facility] | [place], [place] | | | | | [address] | [address] | | | | | Caro [address] Mailcode: | [phone] | | | | | [address] | | | | | | [place], [place] | | | | | | [address] | | | | | | [phone] | | | +--------+--------+ + + + [...] [address] | | | | | | [place], [place] | | | | | | [address] | | | | | | [phone] | | | | | | | | +--------+ + + + + documented as of this encounter Visit Diagnoses Not on filedocumented in this encounter"
--- OUTSIDE RECORDS SUMMARY | ~2018-12-09 | XMS | Encounter Summary ---
Demographics + + + | Address | [address] | | | [place] [address] | + + + | Home Phone [...] | | | | | [place] [address] | | + + + + + | Thania Mallory | ECON | [address] | | | | | [place] [address] | | + + + + + | Deidra Weldon | ECON | [address] | | | | | [place] | | | | | [address] | | + + + + + Care Team Providers + +------+ + | Care Carrier Packer Name | Role | Phone | [...] | | | | | [place], | [place], [place] | | | | | | [place] | [address] | | | | | | [address] | Phone: | | | | | | Phone: | [phone] | | | | | | [phone] | | | | | | | Fax: | | | | | | | [phone] | | +--------+--------+ + + + + Encounter Details +--------+---------+ + + + | Date | Type | Department | Care Team | Description | +--------+---------+ + + + | 11/16/ | Office | Specialty Clinics | Sudhakar Joy | Allergic purpura- | | 2015 | Visit | at [facility] [address] | [place], [address] | [address] | | | | [address] | [address] | (Primary Dx); [facility] | | | | Mailcode: [facility] | [place], [place] | ([place] | | | | [place] | [address] | purpura) nephritis; | | | | [place], [place] | [phone] | Anemia of chronic | | | | [address] | | kidney failure, | | | | [phone] | Rtx, [address] | unspecified stage | | | | | [address] | | | | | | Road [place], [place] | | | | | | [address] | | +--------+---------+ + + + Social [...] soon. Have your friend call Brittney about [phone] Sudhakar Joy MD documented in this encounter [...] [address] Mail code [facility] [place], [place] [address] documented in this encounter Plan of Treatment +--------+ + + + + | Date | Type | Specialty | Care Team | Description | +--------+ + + + + | 05/04/ | Hospital | Adult Acute Care | El Starr MD | | | 2022 | Encounter | | [address] | | | | | | [place], [place] | | | | | | [address] | | | | | | [phone] | | | | | | | [...]
--- OUTSIDE RECORDS SUMMARY | ~2018-12-09 | XMS | Encounter Summary ---
Demographics + + + | Address | [address] | | | [place] [address] | + + + | Home Phone [...] + | Author | [facility] | | | and Josephana | + + + | Organization | [facility] | | | [...] Team Providers + +------+ + | Care Medium Cycle Salesperson Name | Role | Phone | + +------+ + | Tien Nicholson MD | PCP | | + +------+ + Encounter Details +--------+ + + + + | Date | Type | Department | Care Team | Description | +--------+ + + + + | 10/17/ | Hospital | [facility] | Nikita, | SOB (shortness of | | 2019 - | Encounter | [facility] | MD Naresh [address] | breath); Pleural | | | | CARE FLOOR [address] | effusion on right; | | 10/20/ | | [address] | [place] [address] | ESRD needing | | 2019 | | [place], [place] | [phone] | dialysis ([facility]); End | | | | [address] | | stage renal disease | | | | [phone] | | (HCC) | +--------+ + + [...] + + +---------+ + + | B Swyhtvq-C-Mbxhn | Take 1 tablet by | | [...] 10/19/182357 Date of Service: 10/19/182357 Status: Signed Customer Insight Analyst: Vira Ford RN (Registered Nurse) No acute [...] 10/19/181827 Date of Service: 10/19/181826 Status: Signed Customer Insight Analyst: Trent Jovel RN (Registered Nurse) Dialysis completed today 2.4L removed. Remains on fluid restriction. Medicated for pain x 2. End of shift review complete. Trent Jovel RN onversio n Transaction, Provider Unknown - 10/19/2018 1536 PDTFormatting of this note might be differ ent from the original. Case Management by DORON Diallo at 10/19/18 1536 Author: DORON Diallo Service: (none) Author Type: Immigration Law Specialist Filed: 10/19/18 1537 Date of Service: 10/19/18 1536 Status: Signed Customer Insight Analyst: DORON Diallo (Immigration Law Specialist) Discharge planning: Return home when medically ready for discharge. Pt is receiving dialysi s on MWF. Pt is currently on 4L O2, pt may need a home O2 evaluation at discharge. ipul Pabon MD - 10/19/2018 1214 PDT Progress Notes by Antonio Pabon MD at 10/19/18 1214 Author: Antonio Pabon MD Service: Nephrology Author Type: Physician Filed: 10/25/18 9180 Date of Service: 10/19/18 1214 Status: Addendum Customer Insight Analyst: Antonio Pabon MD (Physician) Related Notes: Original Note by Antonio Pabon MD (Physician) filed at 10/25/18 4873 [facility] Service: NEPHROLOGY Progress Note Dara Weldon 23 y.o. [id number]/[id number] female TIEN NICHOLSON 23-year-old female with [...] Rik Simon MD; Location: [facility] [place]; Service: Vascular; Laterality: [...] file Social History Narrative She lives in [facility]. She does not work. She has [...] ral space is punctured with an 5 Mal[place]ian [employer] centesis catheter. Fluid is aspirated without complication. The patient tolerated the procedure well. No immediate complications. Estimate d Blood Loss: Minimal. Uncomplicated thoracentesis. 1.5 L of turbid yellow fluid which was discarded. Procedure pe rformed by Cheryl Connell PA-C. I, Dr. Cotlen Hutchins, supervised the procedure and was prese [...] 1 VIEW (10/17/2018); CHEST TWO V IEWS 83017 (10/17/2018); FINDINGS: Compared to the prior examination [...] MR, severe TR.severe pulmonary hypertens ion Chest o-etj-amyjtjdgkcbx with pulmonary edema and large right pleural [...] earlier and charting completed later Dictation software, [employer], used which may contain error for similar sounding words even af ter review. Personal communication requested for any clarification. inci, MD Gerber - 48 PDT Progress Notes by Gerber Pearson MD at 10/19/18747 Author: Gerber Pearson MD Service: Hospitalist Author Type: Physician Filed: 10/19/18 0753 Date of Service: 10/19/18747 Status: Signed Customer Insight Analyst: Gerber Pearson MD (Physician) [facility] Service: Hospitalist Progress Note Hospital Day: LOS: [...] with dyspnea Patient was recently discharged from [facility] on 08/23/2018. For full note, please see discha rge summary from hospitalist. In summary, the patient was admitted for noncardiogenic pulmo nary edema after thoracentesis. At that point, prior to admission, she was seen at the [facility] at [facility] in [place] on 08/21 where she underwent right th [...] denies any recent fever, chills or nitra abrry. Denies any recent cough, sputum production. 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 Fr gela Fernandez MD - 10/18/201846 PDTFormatting of this note might be different from the origina l. Progress Notes by Gerber Pearson MD at 10/18/18745 Author: Gerber Pearson MD Service: Hospitalist Author Type: Physician Filed: 10/18/18750 Date of Service: 10/18/18745 Status: Signed Customer Insight Analyst: Gerber Pearson MD (Physician) [facility] Service: Hospitalist Progress Note Hospital Day: LOS: [...] with dyspnea Patient was recently discharged from [facility] on 08/23/2018. For full note, please see discha rge summary from hospitalist. In summary, the patient was admitted for noncardiogenic pulmo nary edema after thoracentesis. 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 [id number] 4465/[id number] female [facility] Day: LOS: 1 day [...] GRAFT REPAIR/REVISION; Surgeon: Rik Simon MD; Location: [facility] IN OR; Service: Vascular; Laterality: Left; DECLOT GRAFT Left 03/07/2014 Procedure: GRAFT - DECLOT; Surgeon: Rik Simon MD; Location: [facility] OR; Service: Vas cular; Laterality: Left; DIALYSIS FISTULA CREATION N/A 04/08/2014 Procedure: DIALYSIS CATHETER - INSERTION; Surgeon: Rik Simon MD; Location: [facility] OR ; Service: Vascular; Laterality: N/A; tunneled catheter LAPAROSCOPIC PERITONEAL DIALYSIS CATHETER INSERTION x2 LAPAROSCOPIC PERITONEAL DIALYSIS CATHETER INSERTION Right 07/2013 current dialysis access MWF dialysis RENAL BIOPSY Left 2003 SUPERFICIALIZATION OF AV FISTULA Left 06/24/2014 Procedure: AV FISTULA - SUPERFICIALIZATION; Surgeon: Rik Simon MD; Location: [facility] OR; Service: Vascular; Laterality: Left; Prescriptions Prior [...] file Social History Narrative She lives in [facility]. She does not work. She has [...] QTC Calculation (Bezet) 469 ms Calculated P Holt 46 degrees Calculated R Holt 127 degrees Calculated T Holt 94 degrees Diagnosis Normal sinus rhythm Right [...] MR, severe TR.severe pulmonary hypertens ion Chest z-bmj-gdkdhqrrqrnq with pulmonary edema and large right pleural [...] earlier and charting completed later Dictation software, [employer], used which may contain error for [...] 10/18/1853 Date of Service: 10/18/18650 Status: Signed Customer Insight Analyst: Ronnie Vargas RN (Registered Nurse) Pt alert and oriented X 4. PRN pain med given for back pain. No other acute changes durin g shift. Chart check complete onversio n Transaction, Provider Unknown - 10/17/2018 0948 PDTFormatting of this note might be differ ent from the original. Case Management by DORON Diallo at 10/17/18947 Author: DORON Diallo Service: (none) Author Type: Immigration Law Specialist Filed: 10/17/1870 Date of Service: 10/17/18947 Status: Signed Customer Insight Analyst: DORON Diallo (Immigration Law Specialist) 10/17/18 0900 Discharge Planning Evaluation Admitting Diagnosis (SOB) Readmission Other (comment) (Last admit 08/20/18) Living Arrangements Alone Support Systems Family members;Friends/neighbors Type of Residence Private residence House type Apartment Independent with ADL's Yes Independent with Mobility Yes Home Care Services No Caregiver after Discharge No Mental Status Oriented Prior functional status (Independent) Power of Preconstruction Manager No Resources Financial concerns No Transportation issues No Patient/Family concerns No Prescription Plan Yes Name of Pharmacy ([facility] in [place]) Previous home health equipment No Anticipated Disposition Facility Type Home SUPERVISOR FINISH END CM met with pt and discussed discharge planning. Pt is a 23 y.o., female admitted for s hortness of breath. Pt resides alone in an apartment at [address] [place] [address]. Pt reported that she has neighbor and friend support. Pt's mother, Thania cheung can be reached at and sister, Saundra can be reached at . Pt reported being independent with ADL's,, IADL's and mobility prior to this admission. Pt denied previous outpatient OT/PT services, home care services and home O2 prior to this admission. Pt reported that [facility] prior to this admission . [...] 10/17/18743 Date of Service: 10/17/18743 Status: Signed Customer Insight Analyst: Camilla Moody RPH (Pharmacist) Clinical Pharmacy Note: [...] 10/17/18746 Date of Service: 10/17/18716 Status: Signed Customer Insight Analyst: Gerber Pearson MD (Physician) [facility] Service: Hospitalist Progress Note Hospital Day: LOS: [...] with dyspnea Patient was recently discharged from [facility] on 08/23/2018. For full note, please see ketan agudelo summary from hospitalist. In summary, the patient was admitted for noncardiogenic pulmo nary edema after thoracentesis. At that point, prior to admission, she was seen at the [facility] gen[facility] department at [facility] in [place] on 08/21 where she underwent right th [...] the case over the phone with patient's director hair Dr. 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 Fluid [...] pleural space is punctured with an 5 [place] [employer] | | centesis catheter. Fluid is [...] | | | | | at [facility], [address] | | | | | | [address], | | | | | | [place] [address] | | | | | |Testing performed at [facility], [address] [place] [address] | | | | | | | [...] | | | | | [place] [address] | | | | + + + [...] W | | | | | | [facility], | | | | | | [place] [address] | | | | + + + [...] | [facility];[address] [place] [address] | | | | | | [facility];[place] [address] | | | | + + + [...] [facility];[address] | | LAB | | | | [address];[place] | | | | | | [address] | | | | + + + [...] | [facility];[address] [facility] | | | | | | [facility];[place] [address] | | | | + + + [...] [facility];[address] | | LAB | | | | [address];[place] | | | | | | [address] | | | | + + + [...] [place] | | | | | | [address] | | | | + + + [...] | [facility];[address] [facility] | | | | | | Blvd;[place] [address] | | | | + + + [...] | [facility];[address] [facility] | | | | | | [facility];[place] [address] | | | | + + + [...] | | LAB | | | | [facility];[address] [place] [address] | | | | | | [place] [address] | | | | + + + [...]
--- OUTSIDE RECORDS SUMMARY | ~2018-12-09 | XMS | Encounter Summary ---
Demographics + + + | Address | [address] | | | [place] [address] | + + + | Home Phone [...] | | | | | [place] [address] | | + + + + + | Thania Mallory | ECON | [address] | | | | | [place] [address] | | + + + + + | Deidra Weldon | ECON | [address] | | | | | [place] | | | | | [address] | | + + + + + Care Team Providers + +------+ + | Care Airplane Gastank Liner Assembler Name | Role | Phone | [...] Shun | | | | | ANNALISA [facility] | [facility] | | | | | Rd [place], [place] | [place], [place] | | | | | [address] | [address] | | | | | [phone] | | | +--------+ + + + [...] | | | | | | [place], [place] | | | | | | [address] | | | | | | [phone] | | | | | | | | +--------+ + + + + documented as of this encounter Visit Diagnoses Not on filedocumented in this encounter"
--- OUTSIDE RECORDS SUMMARY | ~2018-12-09 | XMS | Encounter Summary ---
Demographics + + + | Address | [address] | | | [place] [address] | + + + | Home Phone [...] | | | | | [place] [address] | | + + + + + | Thania Mallory | ECON | [address] | | | | | [place] [address] | | + + + + + | Deidra Weldon | ECON | [address] | | | | | [place] | | | | | [address] | | + + + + + Care Team Providers + +------+ + | Care Precision Filer Hand Name | Role | Phone | [...] Visit | Services Inpatient | [address] [facility] | disease, stage V | | | | [address] [facility] | [facility] Dustin | (HCC) (Primary Dx) | | | | [facility] [address] | [place], [place] | | | | | Mailcode: UHS18 | [address] | | | | | [place], [place] | [phone] | | | | | [address] | | | | | | [phone] | | | +--------+---------+ + + + [...] a nutrition perspective. Argentina Mehta, MS, RD, MEDICAL OFFICE ASST, LD documented in this e ncounter Plan of Treatment +--------+ + + + + | Date | Type | Specialty | Care Team | Description | +--------+ + + + + | 05/04/ | Hospital | Adult Acute Care | El Starr MD | | | 2022 | Encounter | | [address] | | | | | | [place], [place] | | | | | | [address] | | | | | | [phone] | | | | | | | [...] + | Chronic kidney disease, stage V ([facility]) - Primary Chronic kidney disease, Stage V | + + documented in this encounter
--- OUTSIDE RECORDS SUMMARY | ~2018-12-09 | XMS | Encounter Summary ---
Demographics + + + | Address | [address] | | | [place] [address] | + + + | Home Phone [...] | | | | | [place] [address] | | + + + + + | Deidra Weldon | ECON | [address] | | | | | [place] | | | | | [address] | | + + + + + Care Team Providers + +------+ + | Care Process Analyst Name | Role | Phone [...] (pt | | | | [address] | [address] | request to change | | | | Rd [place], [place] | [place], [place] | clinic appt) | | | | [address] | [address] | | | | | [phone] | | | +--------+ + + + [...] Denise | | | | | | [place] | | | | | | [address] | | | | | | [phone] | | | | | | | | +--------+ + + + + documented as of this encounter Visit Diagnoses Not on filedocumented in this encounter"
--- OUTSIDE RECORDS SUMMARY | ~2018-12-09 | XMS | Encounter Summary ---
Demographics + + + | Address | [address] | | | [place] [address] | + + + | Home Phone [...] | | | | | [place] [address] | | + + + + + | Thania Mallory | ECON | [address] | | | | | [place] [address] | | + + + + + | Deidra Weldon | ECON | [address] | | | | | [place] | | | | | [address] | | + + + + + Care Team Providers + +------+ + | Care Sugar Grinder Name | Role | Phone | [...] | Sh[address] [facility] [address] | [facility] | | | | | [place], [place] | [place] [address] | | | | | [address] | [phone] | | | | | | | [...] [id number] [place] [address] Updated Outpatient Medications: Current Medication List Name [...] questions regarding this information contact pharmacy, pager #[phone] Thank you, Juan David Batres Pager [phone] signed by Juan David Batres PharmD at [...] Denise | | | | | | [place], [place] | | | | | | [address] | | | | | | [phone] | | | | | | | | +--------+ + + + + documented as of this encounter Visit Diagnoses Not on filedocumented in this encounter"
--- OUTSIDE RECORDS SUMMARY | ~2018-12-09 | XMS | Encounter Summary ---
Demographics + + + | Address | [address] | | | [place] [address] | + + + | Home Phone [...] | | | | | [place] [address] | | + + + + + | Thania Mallory | ECON | [address] | | | | | [place] [address] | | + + + + + | Deidra Weldon | ECON | [address] | | | | | [place] | | | | | [address] | | + + + + + Care Team Providers + +------+ + | Care Ends Breakage Clerk Name | Role | Phone | [...] Update | | | | ANNALISA [facility] [facility] | [facility] | | | | | Rd [place], [place] | [place], [place] | | | | | [address] | [address] | | | | | [phone] | | | +--------+ + + + [...] Denise | | | | | | [place], [place] | | | | | | [address] | | | | | | [phone] | | | | | | | | +--------+ + + + + documented as of this encounter Visit Diagnoses Not on filedocumented in this encounter"
--- OUTSIDE RECORDS SUMMARY | ~2018-12-09 | XMS | Encounter Summary ---
Demographics + + + | Address | [address] | | | [place] [address] | + + + | Home Phone [...] | | | | | [place] [address] | | + + + + + | Thania Mallory | ECON | [address] | | | | | [place] [address] | | + + + + + | Deidra Weldon | ECON | [address] | | | | | [place] | | | | | [address] | | + + + + + Care Team Providers + +------+ + | Care Custodial Aide Name | Role | Phone | [...] | | [facility] | [facility] | | | | | Rd [place], [place] | [place], [place] | | | | | [address] | [address] | | | | | [phone] | | | +--------+ + + + [...] [place] | | | | | | [address] | | | | | | [phone] | | | | | | | | +--------+ + + + + documented as of this encounter Visit Diagnoses Not on filedocumented in this encounter"
--- OUTSIDE RECORDS SUMMARY | ~2018-12-09 | XMS | Encounter Summary ---
Demographics + + + | Address | [address] | | | [place] [address] | + + + | Home Phone [...] | | | | | [place] [address] | | + + + + + | Thania Mallory | ECON | [address] | | | | | [place] [address] | | + + + + + | Deidra Weldon | ECON | [address] | | | | | [place] | | | | | [address] | | + + + + + [...] Shun | | | | | ANNALISA [facility] | [facility] | | | | | Rd [place], [place] | [place], [place] | | | | | [address] | [address] | | | | | [phone] | | | +--------+ + + + [...] Denise | | | | | | [place], [place] | | | | | | [address] | | | | | | [phone] | | | | | | | | +--------+ + + + + documented as of this encounter Visit Diagnoses Not on filedocumented in this encounter"
--- OUTSIDE RECORDS SUMMARY | ~2018-12-09 | XMS | Encounter Summary ---
Demographics + + + | Address | [address] | | | [place] [address] | + + + | Home Phone [...] | | | | | [place] [address] | | + + + + + | Thania Mallory | ECON | [address] | | | | | [place] [address] | | + + + + + | Deidra Weldon | ECON | [address] | | | | | [place] | | | | | [address] | | + + + + + Care Team Providers + +------+ + | Care Geometry Professor Name | Role | Phone | [...] | Update | | | | [facility] | [facility] | | | | | Rd [place], [place] | [place], [place] | | | | | [address] | [address] | | | | | [phone] | | | +--------+ + + + [...] [place] | | | | | | [address] | | | | | | [phone] | | | | | | | | +--------+ + + + + documented as of this encounter Visit Diagnoses Not on filedocumented in this encounter"
--- OUTSIDE RECORDS SUMMARY | ~2018-12-09 | XMS | Encounter Summary ---
Demographics + + + | Address | [address] | | | [place] [address] | + + + | Home Phone [...] | | | | | [place] [address] | | + + + + + | Thania Mallory | ECON | [address] | | | | | [place] [address] | | + + + + + | Deidra Weldon | ECON | [address] | | | | | [place] | | | | | [address] | | + + + + + [...] | | Nephrology at | MD Emanuel [address] | | | | | [address] | [address] | | | | | [facility] | [place], [place] | | | | | [address] | [address] | | | | | Caro Chan Mailcode: | [phone] | | | | | [address] | | | | | | [place], [place] | | | | | | [address] | | | | | | [phone] | | | +--------+--------+ + + + [...] Denise | | | | | | [place], [place] | | | | | | [address] | | | | | | [phone] | | | | | | | | +--------+ + + + + documented as of this encounter Visit Diagnoses Not on filedocumented in this encounter"
--- OUTSIDE RECORDS SUMMARY | ~2018-12-09 | XMS | Encounter Summary ---
Demographics + + + | Address | [address] | | | [place] [address] | + + + | Home Phone [...] | | | | | [place] [address] | | + + + + + | Thania Mallory | ECON | [address] | | | | | [place] [address] | | + + + + + | Deidra Weldon | ECON | [address] | | | | | [place] | | | | | [address] | | + + + + + Care Team Providers + +------+ + | Care Faith Doctor Name | Role | Phone | [...] Decision | | | | ANNALISA Hoffmann [facility] | [facility] | | | | | Rd [place], [place] | [place], [place] | | | | | [address] | [address] | | | | | [phone] | | | +--------+ + + + [...] Denise | | | | | | [place], [place] | | | | | | [address] | | | | | | [phone] | | | | | | | | +--------+ + + + + documented as of this encounter Visit Diagnoses Not on filedocumented in this encounter"
--- OUTSIDE RECORDS SUMMARY | ~2018-12-09 | XMS | Encounter Summary ---
Demographics + + + | Address | [address] | | | [place] [address] | + + + | Home Phone [...] | | | | | [place] [address] | | + + + + + | Thania Mallory | ECON | [address] | | | | | [place] [address] | | + + + + + | Deidra Weldon | ECON | [address] | | | | | [place] | | | | | [address] | | + + + + + Care Team Providers + +------+ + | Care Shirt Sorter Name | Role | Phone | [...] | | | | [facility] | [facility] | | | | | Rd [place], [place] | [place], [place] | | | | | [address] | [address] | | | | | [phone] | | | +--------+ + + + [...] Denise | | | | | | [place] | | | | | | [address] | | | | | | [phone] | | | | | | | | +--------+ + + + + documented as of this encounter Visit Diagnoses Not on filedocumented in this encounter"
--- OUTSIDE RECORDS SUMMARY | ~2018-12-09 | XMS | Encounter Summary ---
Demographics + + + | Address | [address] | | | [place] [address] | + + + | Home Phone [...] | | | | | [place] [address] | | + + + + + | Thania Mallory | ECON | [address] | | | | | [place] [address] | | + + + + + | Deidra Weldon | ECON | [address] | | | | | [place] | | | | | [address] | | + + + + + Care Team Providers + +------+ + | Care Mechanical Facilities Technician Name | Role | Phone | [...] on pt's | | | | Rd [place], [place] | [place], [place] | support plan & | | | | [address] | [address] | social changes) | | | | [phone] | | | +--------+ + + + [...] Denise | | | | | | [place], [place] | | | | | | [address] | | | | | | [phone] | | | | | | | | +--------+ + + + + documented as of this encounter Visit Diagnoses Not on filedocumented in this encounter"
--- OUTSIDE RECORDS SUMMARY | ~2018-12-09 | XMS | Encounter Summary ---
Demographics + + + | Address | [address] | | | [place] [address] | + + + | Home Phone [...] | | | | | [place] [address] | | + + + + + | Thania Mallory | ECON | [address] | | | | | [place] [address] | | + + + + + | Deidra Weldon | ECON | [address] | | | | | [place] | | | | | [address] | | + + + + + Care Team Providers + +------+ + | Care Ethylene Plant Helper Name | Role | Phone | [...] Hoffmann | | | | | [facility] | [facility] | | | | | Rd [place], [place] | [place], [place] | | | | | [address] | [address] | | | | | [phone] | | | +--------+ + + + [...] Denise | | | | | | [place], [place] | | | | | | [address] | | | | | | [phone] | | | | | | | | +--------+ + + + + documented as of this encounter Visit Diagnoses Not on filedocumented in this encounter"
--- OUTSIDE RECORDS SUMMARY | ~2018-12-09 | XMS | Encounter Summary ---
Demographics + + + | Address | [address] | | | [place] [address] | + + + | Home Phone [...] | | | | | [place] [address] | | + + + + + | Thania Mallory | ECON | [address] | | | | | [place] [address] | | + + + + + | Deidra Weldon | ECON | [address] | | | | | [place] | | | | | [address] | | + + + + + Care Team Providers + +------+ + | Care Braid Cutter Name | Role | Phone | [...] | | | | Caro [place], | | | | | | [place] [address] | | | +--------+ + + + [...] [place] | | | | | | [address] | | | | | | [phone] | | | | | | | [...] DANILO - | [address], | [place] [address] | | | IMMUNOGENETICS/TRANS | [address] | | | | PLANT LABORATORY | | | | + + + + + documented in this encounter Visit Diagnoses Not on filedocumented in this encounter"
--- OUTSIDE RECORDS SUMMARY | ~2018-12-09 | XMS | Encounter Summary ---
Demographics + + + | Address | [address] | | | [place] [address] | + + + | Home Phone [...] | | | | | [place] [address] | | + + + + + | Thania Mallory | ECON | [address] | | | | | [place] [address] | | + + + + + | Deidra Weldon | ECON | [address] | | | | | [place] | | | | | [address] | | + + + + + Care Team Providers + +------+ + | Care Block Bolter Mule Operator Name | Role | Phone | [...] Requested (Drug | | | | [address] [facility] | [facility] | screens) | | | | Rd [place], [place] | [facility] [place] | | | | | [address] | [address] | | | | | [phone] | | | +--------+ + + + [...] Denise | | | | | | [place] | | | | | | [address] | | | | | | [phone] | | | | | | | | +--------+ + + + + documented as of this encounter Visit Diagnoses Not on filedocumented in this encounter"
--- OUTSIDE RECORDS SUMMARY | ~2018-12-09 | XMS | Encounter Summary ---
Demographics + + + | Address | [address] | | | [place] [address] | + + + | Home Phone [...] | | | | | [place] [address] | | + + + + + | Thania Mallory | ECON | [address] | | | | | [place] [address] | | + + + + + | Deidra Weldon | ECON | [address] | | | | | [place] | | | | | [address] | | + + + + + Care Team Providers + +------+ + | Care Outdoor Adventure Guides Name | Role | Phone | + [...] | Summary | | | | [facility] | [facility] | | | | | Rd [place], [place] | [place], [place] | | | | | [address] | [address] | | | | | [phone] | | | +--------+ + + + [...] [place] | | | | | | [address] | | | | | | [phone] | | | | | | | | +--------+ + + + + documented as of this encounter Visit Diagnoses Not on filedocumented in this encounter"
--- OUTSIDE RECORDS SUMMARY | ~2018-12-09 | XMS | Encounter Summary ---
Demographics + + + | Address | [address] | | | [place] [address] | + + + | Home Phone [...] | | | | | [place] [address] | | + + + + + | Thania Mallory | ECON | [address] | | | | | [place] [address] | | + + + + + | Deidra Weldon | ECON | [address] | | | | | [place] | | | | | [address] | | + + + + + Care Team Providers + +------+ + | Care Quality Control Head Name | Role | Phone | + +------+ + | Shahid Camargo MD | PCP | Unavailable | + +------+ + Encounter Details +--------+ + + + + | Date | Type | Department | Care Team | Description | +--------+ + + + + | 12/20/ | Hospital | Radiology at [facility] | | | | 2012 | Encounter | [address] | | | | | | [place] Mailcode: | | | | | | [address] | | | | | | [place], [place] | | | | | | [address] | | | | | | [phone] | | | +--------+ + + + [...] Denise | | | | | | [place], [place] | | | | | | [address] | | | | | | [phone] | | | | | | | [...] | | + +---------+ + + | [facility] DEPARTMENT OF | | | | | RADIOLOGY | | | | + +---------+ + + documented in this encounter Visit Diagnoses + + | Diagnosis | + + | 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
--- OUTSIDE RECORDS SUMMARY | ~2018-12-09 | XMS | Encounter Summary ---
Demographics + + + | Address | [address] | | | [place] [address] | + + + | Home Phone [...] | | | | | [place] [address] | | + + + + + | Thania Mallory | ECON | [address] | | | | | [place] [address] | | + + + + + | Deidra Weldon | ECON | [address] | | | | | [place] | | | | | [address] | | + + + + + Care Team Providers + +------+ + | Care Cleaning Associate Name | Role | Phone | [...] Everywher | | | | ANNALISA Hoffmann [facility] | [address] | Query) | | | | Rd [place], [place] | [place], [place] | | | | | [address] | [address] | | | | | [phone] | [phone] | | | | | | | [...] [place] | | | | | | [address] | | | | | | [phone] | | | | | | | | +--------+ + + + + documented as of this encounter Visit Diagnoses Not on filedocumented in this encounter"
--- OUTSIDE RECORDS SUMMARY | ~2018-12-09 | XMS | Encounter Summary ---
Demographics + + + | Address | [address] | | | [place] [address] | + + + | Home Phone [...] | | | | | [place] [address] | | + + + + + | Thania Mallory | ECON | [address] | | | | | [place] [address] | | + + + + + | Deidra Weldon | ECON | [address] | | | | | [place] | | | | | [address] | | + + + + + Care Team Providers + +------+ + | Care Field Map Technician Name | Role | Phone | [...] | | [address] 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
--- OUTSIDE RECORDS SUMMARY | ~2018-12-09 | XMS | Encounter Summary ---
Demographics + + + | Address | [address] | | | [place] [address] | + + + | Home Phone [...] Author | [facility] | | | and [place] | + + + | Organization | [facility] | | [...] Team Providers + +------+ + | Care Cow Tender Name | Role | Phone | [...] + + | 11/12/ | Telephone | [facility] | Silvia Rabago | DME (carlie, cmn, | | 2018 | | [address] | ABRIL Hernandez | [facility]) | | | | [place] | | | | | | [address] | | | | | | [phone] | | | +--------+ + + + [...] [place] | | | | | | [place] [address] | | | | | | [phone] | | | | | | | | +--------+---------+ + + + documented as of this encounter Visit Diagnoses Not on filedocumented in this encounter"
--- OUTSIDE RECORDS SUMMARY | ~2018-12-09 | XMS | Encounter Summary ---
Demographics + + + | Address | [address] | | | [place] [address] | + + + | Home Phone [...] | | | | | [place] [address] | | + + + + + | Thania Mallory | ECON | [address] | | | | | [place] [address] | | + + + + + | Deidra Weldon | ECON | [address] | | | | | [place] | | | | | [address] | | + + + + + [...] Mailcode: | | | | | | [address] | [facility] | | | | | | [address] | [place] | | | | | | [place], | [place], [place] | | | | | | [place] | [address] | | | | | | [address] | Phone: | | | | | | Phone: | [phone] | | | | | | [phone] | | | | | | | Fax: | | | | | | | [phone] | | +--------+--------+ + + + + Encounter Details +--------+---------+ + + + | Date | Type | Department | Care Team | Description | +--------+---------+ + + + | 05/24/ | Office | Specialty Clinics | Sudhakar Joy | HSP | | 2017 | Visit | at [facility] [address] | DMD [address] | (Henoch-Schonlein | | | | [address] | [address] | purpura) nephritis | | | | Mailcode: [facility] | [place], [place] | (Primary Dx); Anemia | | | | [place] | [address] | of chronic kidney | | | | [place], [place] | [phone] | failure, stage 5 | | | | [address] | | ([facility]) | | | | [phone] | | | +--------+---------+ + + + [...] not be referred for transplant. Her adult practicing urologist could refer her to adult transplant when [...] [address] Mail code [facility] [place], [place] [id number] documented in this encounter Plan of Treatment +--------+ + + + + | Date | Type | Specialty | Care Team | Description | +--------+ + + + + | 05/04/ | Hospital | Adult Acute Care | El Starr MD | | | 2022 | Encounter | | [address] | | | | | | [place], [place] | | | | | | [address] | | | | | | [phone] | | | | | | | [...]
--- OUTSIDE RECORDS SUMMARY | ~2018-12-09 | XMS | Encounter Summary ---
Demographics + + + | Address | [address] | | | [place] [address] | + + + | Home Phone [...] | | | | | [place] [address] | | + + + + + | Thania Mallory | ECON | [address] | | | | | [place] [address] | | + + + + + | Deidra Weldon | ECON | [address] | | | | | [place] | | | | | [address] | | + + + + + Care Team Providers + +------+ + | Care Creel Selector Name | Role | Phone | [...] | recommendations) | | | | ANNALISA [facility] | [facility] | | | | | Rd [place], [place] | [place], [place] | | | | | [address] | [address] | | | | | [phone] | | | +--------+ + + + [...] Denise | | | | | | [place] | | | | | | [address] | | | | | | [phone] | | | | | | | | +--------+ + + + + documented as of this encounter Visit Diagnoses Not on filedocumented in this encounter"
--- OUTSIDE RECORDS SUMMARY | ~2018-12-09 | XMS | Encounter Summary ---
Demographics + + + | Address | [address] | | | [place] [address] | + + + | Home Phone [...] | | | | | [place] [address] | | + + + + + | Thania Mallory | ECON | [address] | | | | | [place] [address] | | + + + + + | Deidra Weldon | ECON | [address] | | | | | [place] | | | | | [address] | | + + + + + [...] | Coordinators [address] | L [address] [facility] | Transplant | | | | ANNALISA Hoffmann [facility] | [facility] [address] | Evaluation | | | | Rd [place], [place] | [place], [place] | | | | | [address] | [address] | | | | | [phone] | | | +--------+ + + + [...] Denise | | | | | | [place] | | | | | | [address] | | | | | | [phone] | | | | | | | | +--------+ + + + + documented as of this encounter Visit Diagnoses Not on filedocumented in this encounter"
--- OUTSIDE RECORDS SUMMARY | ~2018-12-09 | XMS | Encounter Summary ---
Demographics + + + | Address | [address] | | | [place] [address] | + + + | Home Phone [...] | | | | | [place] [address] | | + + + + + | Thania Mallory | ECON | [address] | | | | | [place] [address] | | + + + + + | Deidra Weldon | ECON | [address] | | | | | [place] | | | | | [address] | | + + + + + Care Team Providers + +------+ + | Care Durable Medical Equipment Repairer Name | Role | Phone [...] | | | [address] Hoff[address] [facility] | [facility] | | | | | Rd [place], [place] | [place], [place] | | | | | [address] | [address] | | | | | [phone] | | | +--------+ + + + [...] | | | | | | [place] | | | | | | [address] | | | | | | [phone] | | | | | | | | +--------+ + + + + documented as of this encounter Visit Diagnoses Not on filedocumented in this encounter"
--- OUTSIDE RECORDS SUMMARY | ~2018-12-09 | XMS | Encounter Summary ---
Demographics + + + | Address | [address] | | | [place] [address] | + + + | Home Phone [...] | Author | [facility] | | | and [place] | + + + | Organization | [facility] | | | [...] Team Providers + +------+ + | Care Fiberglass Boat Builder Name | Role | Phone | + +------+ + | Jonathan Alonso MD | PCP | | + +------+ + Encounter Details +--------+ + + + + | Date | Type | Department | Care Team | Description | +--------+ + + + + | 10/17/ | Hospital | [facility] | Nikita, | ESRD (end stage | | 2019 - | Encounter | [facility] | MD Naresh [address] | renal disease) | | | | CARE FLOOR [address] | ([facility]); 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 [facility] Service: Hospitalist Physician Discharge Summary [...] is to follow up with her regular coal pulverizer operator, Dr. Hurtado. DISCHARGE DIAGNOSES: 1. 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 (HCC) Hypertension Past Surgical History: Procedure Laterality Date ABDOMEN SURGERY AV FISTULA REPAIR 02/24/2014 LEFT Radical Cephalic Fistula Creation; Laterality: Left; Surgeon: Blake Chavarria MD ; Location: [facility] MAIN OR AV FISTULA REPAIR Left 03/07/2014 Procedure: AV FISTULA - GRAFT REPAIR/REVISION; Surgeon: Rik Simon MD; Location: [facility] IN OR; Service: Vascular; Laterality: Left; biopsy of kidney age 10 DIALYSIS FISTULA CREATION 04/08/2014 Procedure: DIALYSIS CATHETER - INSERTION; Surgeon: Rik Simon MD; Location: [facility] MAIN OR ; Service: Vascular; Laterality: N/A; tunneled catheter.br hemodialysis catheter KIDNEY BIOPSY Left 2003 OTHER SURGICAL HISTORY LAPAROSCOPIC PERITONEAL DIALYSIS CATHETER INSERTION - x2 OTHER SURGICAL HISTORY Right 07/2013 LAPAROSCOPIC PERITONEAL DIALYSIS CATHETER INSERTION - current dialysis access MWF dialysis OTHER SURGICAL HISTORY Left 06/24/2014 SUPERFICIALIZATION OF AV FISTULA - Procedure: AV FISTULA - SUPERFICIALIZATION; Surgeon: Emanuel Simon MD; Location: [facility] MAIN OR; Service: Vascular; Laterality: [...] have: Continued coughing Fever Date Last Reviewed: 02/04/201619999613-2739 [email or web address]. [address] [place] [address]. All righ ts reserved. This information is [...] by your healthcare provider Date Last Reviewed: 12/05/201519998323-1486 [email or web address] [address] [place] [address]. All righ ts reserved. This information is [...] | | | | | | | zocory). | | | | | + + [...] + + +---------+ + + | B Hirpeke-U-Fsvvb | Take 1 tablet by | | [...] with family/friends. Nereida Coburn RN 10/22/18 17:26 Alysia Anand MD - 10/22/2018 0636 PDT Hospital Problem [...] I have discussed the case with the KILN CLEANER. I agree with his findings & documentation. [...] by Jorge Diehl RN at 10/21/2018 16:47 Antonio Carrasco MD - 10/21/[address] [facility] Service: NEPHROLOGY Progress Note Dara Weldon 23 y.o. [id number] female Jonathan Alonso MD Hospital Day: [...] Left; Surgeon: Blake Chavarria MD ; Location: [facility] MAIN OR AV FISTULA REPAIR Left 03/07/2014 Procedure: AV FISTULA - GRAFT REPAIR/REVISION; Surgeon: Rik Simon MD; Location: [facility]; Service: Vascular; Laterality: Left; biopsy [...] - SUPERFICIALIZATION; Surgeon: Emanuel Simon MD; Location: [facility] MAIN OR; Service: Vascular; Laterality: Left; OTHER SURGICAL HISTORY Left 04/08/2014 AV FISTULA PLACEMENT - Procedure: AV FISTULA; Surgeon: Rik Simon MD; Location: [facility]; Service: Vascular; Laterality: Left; cephalic OTHER SURGICAL HISTORY Left 03/07/2014 DECLOT GRAFT - Procedure: GRAFT - DECLOT; Surgeon: Rik Simon MD; Location: [facility] MAIN OR ; Service: Vascular; [...] Social History Narrative She lives in [place]. She does not work. She has 1 [...] MR, severe TR.severe pulmonary hyperten arturo Chest q-elk-idmgttamkvde with pulmonary edema and large right pleural [...] earlier and charting completed later Dictation software, Papriika, used which may contain error for similar sounding words even af ter review. Personal communication requested for any clarification. Portions of my notes may have been carried over for continuity of care.Electronically ananth d by Antonio Benjamin MD at 10/21/2018 15:11 PDTVinGerber pastrana MD - 10/21/2018 0718 PDTFormat ting of this note might be different from the original. [facility] Adult Hospitalist Progress Note Hospital [...] improved, currently on 2 L oxygen, marty kinging next cycle of hemodialysis Has been afebrile, [...] BUN 90 on admission -History of a Sultana Schnlein purpura -Last hemodialysis approximately 2 weeks [...] Gerber Fernandez MD - 10/20/[address] [facility] Adult Hospitalist Progress Note Hospital [...] BUN 90 on admission -History of a Sultana Schnlein purpura -Last hemodialysis approximately 2 weeks [...] E | | | | | | [place] [address] | | | | | | [phone] | | | | | | | [...] | | | | | [place] [address] | | | | + + + + + + + + | Specimen | + + | Blood | + + + + + + + | Performing | Address | City/State/Zipcode | Phone Number | | Organization | | | | + + + + + | [facility] | [address] | [place] [address] | [phone] | + + + + + Basic [...] (L)Comment: GFR <60: | >60 | [facility] | | | GFR | [...] Hospital, | | | | | | [place] [address] | | | | + + + + + + + + | Specimen | + + | Blood | + + + + + + + | Performing | Address | City/State/Zipcode | Phone Number | | Organization | | | | + + + + + | [facility] | [address] | [place] [address] | [phone] | + + + + + Basic [...] 11 (L)Comment: GFR <60: | >60 | [facility] | | | GFR | [...] W | | | | | | [facility], | | | | | | [place] [address] | | | | + + + + + + + + | Specimen | + + | Blood | + + + + + + + | Performing | Address | City/State/Zipcode | Phone Number | | Organization | | | | + + + + + | [facility] | [address] | [place] [address] | [phone] | + + + + + Basic [...] | | | | | | [facility] traceable | | | | | | equation.Testing | | | | | | performed at [facility];[address] | | | | | | [facility];[place], [place] | | | | | | [address] | | | | + + + + + + + + | Specimen | + + | Blood | + + + + + + + | Performing | Address | City/State/Zipcode | Phone Number | | Organization | | | | + + + + + | [facility] | [address] [facility] | [place] [address] | [phone] | + + + + + documented in this encounter Visit Diagnoses + + | Diagnosis | + + | Non-cardiogenic pulmonary edema - Primary Pulmonary congestion and hypostasis | + + | ESRD (end stage renal disease) ([facility]) End stage renal disease | [...] | | | for platelets less than [address], | | + +---+ | | | [...] | | | | | | | Mon10/19/18 at 1123 | | | | | [...]
--- OUTSIDE RECORDS SUMMARY | ~2018-12-09 | XMS | Encounter Summary ---
Demographics + + + | Address | [address] | | | [place] [address] | + + + | Home Phone [...] | | | | | [place] [address] | | + + + + + | Thania Mallory | ECON | [address] | | | | | [place] [address] | | + + + + + | Deidra Weldon | ECON | [address] | | | | | [place] | | | | | [address] | | + + + + + Care Team Providers + +------+ + | Care Patents Examiner Name | Role | Phone | [...] (Delisting) | | | | ANNALISA Hoffmann [facility] | [facility] | | | | | Rd [place], [place] | [place], [place] | | | | | [address] | [address] | | | | | [phone] | | | +--------+ + + + [...] Denise | | | | | | [place] | | | | | | [address] | | | | | | [phone] | | | | | | | | +--------+ + + + + documented as of this encounter Visit Diagnoses Not on filedocumented in this encounter"
--- OUTSIDE RECORDS SUMMARY | ~2018-12-09 | XMS | Encounter Summary ---
Demographics + + + | Address | [address] | | | [place] [address] | + + + | Home Phone [...] | | | | | [place] [address] | | + + + + + | Thania Mallory | ECON | [address] | | | | | [place] [address] | | + + + + + | Deidra Weldon | ECON | [address] | | | | | [place] | | | | | [address] | | + + + + + Care Team Providers + +------+ + | Care Citrix Lead Name | Role | Phone | [...] | | | | | TRANSTHORACI | [place], [place] | DCH8S | | | | | C | [address] | Dobradechramonita | | | | | ECHOCARDIOGR | Phone: | [place], [place] | | | | | AM, PEDS | [phone] | [address] | | | | | | Fax: | Phone: | | | | | | [phone] | [phone] | | | | | | | Fax: | | | | | | | [phone] | +--------+--------+ + + + + Diagnostic [...] ANNALISA Hoffmann | | | | | ([facility]) | Shun Griffin | [facility] | | | | | Procedures | [address] | Rd Mailcode: | | | | | TRANSTHORACI | [facility] [place] | D[facility] | | | | | C | [address] | Doernbecher | | | | | ECHOCARDIOGR | Phone: | [place], [place] | | | | | AM, PEDS | [phone] | [address] | | | | | | Fax: | Phone: | | | | | | [phone] | [phone] | | | | | | | Fax: | | | | | | | [phone] | +--------+--------+ + + + + Reason [...] | Allergic | Sudhakar D, | [address] | | | | | purpura | [address] | ANNALISA Hoffmann | | | | | ([facility]) | Shun Griffin | [address] | | | | | Procedures | Caro Chan | Dustin Mailcode: | | | | | TRANSTHORACI | [place], [place] | D[facility] | | | | | C | [address] | Doerarielaecher | | | | | ECHOCARDIOGR | Phone: | [place], [place] | | | | | AM, PEDS | [phone] | [address] | | | | | | Fax: | Phone: | | | | | | [phone] | [phone] | | | | | | | Fax: | | | | | | | [phone] | +--------+--------+ + + + + Encounter [...] Alexander | | | | | | [place], [place] | | | | | | [address] | | | | | | [phone] | | | +--------+ + + + [...] Denise | | | | | | [place], [place] | | | | | | [address] | | | | | | [phone] | | | | | | | [...]
--- OUTSIDE RECORDS SUMMARY | ~2018-12-09 | XMS | Encounter Summary ---
Demographics + + + | Address | [address] | | | [place] [address] | + + + | Home Phone [...] | | | | | [place] [address] | | + + + + + | Thania Mallory | ECON | [address] | | | | | [place] [address] | | + + + + + | Deidra Weldon | ECON | [address] | | | | | [place] | | | | | [address] | | + + + + + Care Team Providers + +------+ + | Care Software Quality Engineer Name | Role | Phone | [...] | Nephrology at | MD Emanuel [address] | Requested (UDS) | | | | Alexander | [address] | | | | | [facility] | [place], [place] | | | | | [address] | [address] | | | | | Caro Chan Mailcode: | [phone] | | | | | [address] | | | | | | [place], [place] | | | | | | [address] | | | | | | [phone] | | | +--------+ + + + [...] Denise | | | | | | [place] | | | | | | [address] | | | | | | [phone] | | | | | | | | +--------+ + + + + documented as of this encounter Visit Diagnoses Not on filedocumented in this encounter"
--- OUTSIDE RECORDS SUMMARY | ~2018-12-09 | XMS | Encounter Summary ---
Demographics + + + | Address | [address] | | | [place] [address] | + + + | Home Phone [...] | | | | | [place] [address] | | + + + + + | Thania Mallory | ECON | [address] | | | | | [place] [address] | | + + + + + | Deidra Weldon | ECON | [address] | | | | | [place] | | | | | [address] | | + + + + + Care Team Providers + +------+ + | Care Food Service Associate Name | Role | Phone | [...] | | | | Dea Jane | [place], [place] | | | | | [place], [place] | [address] | | | | | [address] | | | | | | [phone] | | | +--------+ + + + [...] Denise | | | | | | [place] | | | | | | [address] | | | | | | [phone] | | | | | | | | +--------+ + + + + documented as of this encounter Visit Diagnoses Not on filedocumented in this encounter"
--- OUTSIDE RECORDS SUMMARY | ~2018-12-09 | XMS | Encounter Summary ---
Demographics + + + | Address | [address] | | | [place] [address] | + + + | Home Phone [...] | | | | | [place] [address] | | + + + + + | Thania Mallory | ECON | [address] | | | | | [place] [address] | | + + + + + | Deidra Weldon | ECON | [address] | | | | | [place] | | | | | [address] | | + + + + + Care Team Providers + +------+ + | Care Exit Booth Agent Name | Role | Phone | + +------+ + | Jonathan Alonso MD | PCP | | + +------+ + Encounter Details +--------+------+ + + + | Date | Type | Department | Care Team | Description | +--------+------+ + + + | 01/20/ | Lab | [facility] | | 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 [address] | | MEDICARE 27[address]; HSP | | | | [address] | | ([place] | | | | [place], [place]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; | | | | [address] | | Hemodialysis status | | | | [phone] | | ([facility]); Chronic | | | | | | kidney disease, | | | | | | stage V ([facility]) | +--------+------+ + + + Social History [...] Tariq | | | | | | [place], [place] | | | | | | [address] | | | | | | [phone] | | | | | | | [...] | e | 9:59 AM | MEDICARE [address] | procedure are in the | [...] stage V ([facility]) | | + +--------+ + + + [...] stage V ([facility]) | | + +--------+ + + + [...] stage V ([facility]) | | + +--------+ + + + [...] stage V ([facility]) | | + +--------+ + + + [...] stage V ([facility]) | | + +--------+ + + + [...] | PST | ([facility] | results section. | | | | [...] the | | | | PST | ([facility] | results section. | | | | [...] the | | | | PST | ([facility] | results section. | | | | [...] the | | | | PST | ([facility] | results section. | | | [...] | + + + + + | [facility] - | [address] | [place] [address] | | | [place] | | | | + + + [...] [facility] | [address] | [place] [address] | | | SERVICES, CORE | PARK [...] [facility] | [address] | [place] [address] | | | SERVICES, SPECIAL | PARK [...] | [facility] | [address] | [place] [address] | | | DIAGNOSTIC | [address] [...] + | [facility] - | [address] | [place] [address] | | | [place] | | | [...] + | [facility] - | [address] | [place] [address] | | | [facility] | | | | + + [...] + | [facility] - | [address] | [place] [address] | | | [place] | | | [...] | + + + + + | [facility] - [facility] - | [address] | [place] [address] | | | [facility] | | | | [...] by | | | | | | HQ plus,[address] | | | | | | Pippa [address], [facility] | | | | | | [address] | | | | | | [phone]. | | | | | | Faisal [...] [facility] | [address] | [place], [place] | | | [facility] | | [address] | | + + + + + [...] + | [facility] [facility] - | [address] | [place] [address] | | | [place] | | | | + + + [...] by | | | | | | [email or web address],[address] | | | | | | [place] | | | | | | [address] | | | | | | [phone]. | | | | | | Faisal [...] [facility] | [address] | [place], [place] | | | [facility] | | [address] | | + + + + + [...] [facility] | [address] | [place] [address] | | | SERVICES, CORE | PARK [...] [facility] | [address] | [place] [address] | | | SERVICES, CORE | PARK [...] [facility] | [address] | [place] [address] | | | HOM[facility] | LONG [...] [facility] | [address] | [place] [address] | | | SERVICES, CORE | PARK [...] [facility] | [address] | [place] [address] | | | SERVICES, [facility] | [address] | | | + [...] | | | LABORATORY | | | [place]OMON [place]ER | | | SERVICES, | | | [...] | + + + + + | [facility] | [address] | [place] [address] | | | SERVICES, CORE | LONG [...]
--- OUTSIDE RECORDS SUMMARY | ~2018-12-09 | XMS | Encounter Summary ---
Demographics + + + | Address | [address] | | | [place] [address] | + + + | Home Phone [...] | Author | [facility] | | | and Josephana | + + + | Organization | [facility] | [...] Team Providers + +------+ + | Care Ammunition Storage Superintendent Name | Role | Phone | [...] 11/15/ | Telephone | [facility] | George Torres RN | Medication Problem | | 2019 | | [address] | | (N O2) | | | | [place] | | | | | | [address] | | | | | | [phone] | | | +--------+ + + + [...] | | | | | [place] [address] | | | | | | [phone] | | | | | | | | +--------+---------+ + + + documented as of this encounter Visit Diagnoses Not on filedocumented in this encounter"
--- OUTSIDE RECORDS SUMMARY | ~2018-12-09 | XMS | Encounter Summary ---
Demographics + + + | Address | [address] | | | [place] [address] | + + + | Home Phone [...] | | | | | [place] [address] | | + + + + + | Thania Mallory | ECON | [address] | | | | | [place] [address] | | + + + + + | Deidra Weldon | ECON | [address] | | | | | [place] | | | | | [address] | | + + + + + [...] (Dialysis | | | | ANNALISA Hoffmann [facility] | [address] | unit updated) | | | | [place], [place] | [facility] [place] | | | | | [address] | [address] | | | | | [phone] | [phone] | | | | | | | [...] [place] | | | | | | [address] | | | | | | [phone] | | | | | | | | +--------+ + + + + documented as of this encounter Visit Diagnoses Not on filedocumented in this encounter"
--- OUTSIDE RECORDS SUMMARY | ~2018-12-09 | XMS | Encounter Summary ---
Demographics + + + | Address | [address] | | | [place] [address] | + + + | Home Phone [...] | | | | | [place] [address] | | + + + + + | Thania Mallory | ECON | [address] | | | | | [place] [address] | | + + + + + | Deidra Weldon | ECON | [address] | | | | | [place] | | | | | [address] | | + + + + + Care Team Providers + +------+ + | Care Property Assessment Monitor Name | Role | Phone | [...] (Primary Dx) | | | | [facility] | [place], [place] | | | | | [address] | [address] | | | | | Caro Chan Mailcode: | [phone] | | | | | [address] | | | | | | [place], [place] | | | | | | [address] | | | | | | [phone] | | | +--------+ + + + [...] Denise | | | | | | [place], [place] | | | | | | [address] | | | | | | [phone] | | | | | | | [...] | e | 1:18 PM | MEDICARE [address] | procedure are in the | | | | PST | ([facility] | results section. | | |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 | | | | | | Hemodialysis status | | | | | | ([facility]) Chronic | | | | | | kidney disease, | | | | | | stage V ([facility]) | | + +--------+ + + + documented in this encounter Visit Diagnoses + + | Diagnosis | + + | End-stage renal disease (HCC) - Primary End stage renal disease | + + documented in this encounter"
--- OUTSIDE RECORDS SUMMARY | ~2018-12-09 | XMS | Encounter Summary ---
Demographics + + + | Address | [address] | | | [place] [address] | + + + | Home Phone [...] | | | | | [place] [address] | | + + + + + | Thania Mallory | ECON | [address] | | | | | [place] [address] | | + + + + + | Deidra Weldon | ECON | [address] | | | | | [place] | | | | | [address] | | + + + + + Care Team Providers + +------+ + | Care Obstetrics And Gynecology Professor Name | Role | Phone | [...] Rd | | | | | [facility] | [place], [place] | | | | | [address] | [address] | | | | | Caro Chan Mailcode: | [phone] | | | | | [address] | | | | | | [place], [place] | | | | | | [address] | | | | | | [phone] | | | +--------+ + + + [...] [place] | | | | | | [address] | | | | | | [phone] | | | | | | | | +--------+ + + + + documented as of this encounter Visit Diagnoses Not on filedocumented in this encounter"
--- OUTSIDE RECORDS SUMMARY | ~2018-12-09 | XMS | Encounter Summary ---
Demographics + + + | Address | [address] | | | [place] [address] | + + + | Home Phone [...] | | | | | [place] [address] | | + + + + + | Thania Mallory | ECON | [address] | | | | | [place] [address] | | + + + + + | Deidra Weldon | ECON | [address] | | | | | [place] | | | | | [address] | | + + + + + Care Team Providers + +------+ + | Care Phosphatic Fertilizer Supervisor Name | Role | Phone | [...] | | Nephrology at | MD Emanuel [address] | | | | | Alexander | [address] | | | | | [facility] | [place], [place] | | | | | [address] | [address] | | | | | Caro Chan Mailcode: | [phone] | | | | | [address] | | | | | | [place], [place] | | | | | | [address] | | | | | | [phone] | | | +--------+ + + + [...] | | | | | | [place], [place] | | | | | | [address] | | | | | | [phone] | | | | | | | [...] [address] | [place] [address] | [phone] | | HOSPITAL | | | | [...] | [address] | [place] [address] | [phone] | | HOSPITAL | | | | + + + + + documented in this encounter Visit Diagnoses Not on filedocumented in this encounter"
--- OUTSIDE RECORDS SUMMARY | ~2018-12-09 | XMS | Encounter Summary ---
Demographics + + + | Address | [address] | | | [place] [address] | + + + | Home Phone [...] | | | | | [place] [address] | | + + + + + | Thania Mallory | ECON | [address] | | | | | [place] [address] | | + + + + + | Deidra Weldon | ECON | [address] | | | | | [place] | | | | | [address] | | + + + + + Care Team Providers + +------+ + | Care Bar Waiter/Waitress Name | Role | Phone | + [...] | | | | | [address] [facility] | [facility] [place]in | | | | | [place], [place] | [place], [place] | | | | | [address] | [address] | | | | | [phone] | [phone] | | | | | | | [...] | 2022 | Encounter | | [address] | | | | | | [place], [place] | | | | | | [address] | | | | | | [phone] | | | | | | | | +--------+ + + + + documented as of this encounter Visit Diagnoses Not on filedocumented in this encounter"
--- OUTSIDE RECORDS SUMMARY | ~2018-12-09 | XMS | Encounter Summary ---
Demographics + + + | Address | [address] | | | [place] [address] | + + + | Home Phone [...] | | | | | [place] [address] | | + + + + + | Thania Mallory | ECON | [address] | | | | | [place] [address] | | + + + + + | Deidra Weldon | ECON | [address] | | | | | [place] | | | | | [address] | | + + + + + Care Team Providers + +------+ + | Care Mechanical Technologist Name | Role | Phone | [...] 2012 | on | [address] | [place], [place] | | | | | [address] [facility] | [address] | | | | | Rd [place], [place] | | | | | | [address] | | | | | | [phone] | | | +--------+ + + + [...] [place] | | | | | | [address] | | | | | | [phone] | | | | | | | | +--------+ + + + + documented as of this encounter Visit Diagnoses Not on filedocumented in this encounter"
--- OUTSIDE RECORDS SUMMARY | ~2018-12-09 | XMS | Encounter Summary ---
Demographics + + + | Address | [address] | | | [place] [address] | + + + | Home Phone [...] + | Author | [facility] | | | and Josephana | + + + | Organization | [facility] | [...] Providers + +------+ + | Care Oracle Adf Developer Name | Role | Phone | + +------+ + | Jonathan Alonso MD | PCP | | + +------+ + Encounter Details +--------+ + + + + | Date | Type | Department | Care Team | Description | +--------+ + + + + | 10/17/ | Hospital | [facility] | Nikita, | ESRD (end stage | | 2019 - | Encounter | [facility] | MD Naresh [address] | renal disease) | | | | CARE FLOOR [address] | (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); | | | | [address] | | Non-cardiogenic | | | | [phone] | Gerber Pearson MD | pulmonary edema; | | | | | [address] | Anemia in ESRD | | | | | [place] [address] | (end-stage renal | | | | | [phone] | disease) ([facility] [...] failure | | | | | | ([facility] [...] might be different from t chacha coleman. [facility] Service: Hospitalist Physician Discharge Summary Patient ID: [...] is to follow up with her regular lacquer coater, Dr. Hurtado. DISCHARGE DIAGNOSES: 1. End-stage renal [...] History: Diagnosis Date Asthma Clotted dialysis access ([facility]) 2014 Congestive heart failure (HCC) ESRD (end stage renal disease) ([facility]) ESRD (end stage renal disease) ([facility]) HSP (Henoch-Schonlein purpura) nephritis (HCC) 1987 HSP (Henoch-Schonlein purpura) nephritis (HCC) Hypertension Past Surgical History: Procedure Laterality Date ABDOMEN SURGERY AV FISTULA REPAIR 02/24/2014 LEFT Radical Cephalic Fistula Creation; Laterality: Left; Surgeon: Blake Chavarria MD ; Location: [facility] MAIN OR AV FISTULA REPAIR Left 03/07/2014 Procedure: AV FISTULA - GRAFT REPAIR/REVISION; Surgeon: Rik Simon MD; Location: [facility] OR; Service: Vascular; Laterality: Left; biopsy of kidney age 10 DIALYSIS FISTULA CREATION 04/08/2014 Procedure: DIALYSIS CATHETER - INSERTION; Surgeon: Rik Simon MD; Location: [facility] MAIN OR ; Service: Vascular; [...] SUPERFICIALIZATION; Surgeon: Emanuel Simon MD; Location: [facility] MAIN OR; Service: Vascular; Laterality: Left; OTHER SURGICAL HISTORY Left 04/08/2014 AV FISTULA PLACEMENT - Procedure: AV FISTULA; Surgeon: Rik Simon MD; Location: [facility] OR; Service: Vascular; Laterality: Left; cephalic OTHER SURGICAL HISTORY Left 03/07/2014 DECLOT GRAFT - Procedure: GRAFT - DECLOT; Surgeon: Rik Simon MD; Location: [facility] OR ; Service: Vascular; Laterality: Left; [...] have: Continued coughing Fever Date Last Reviewed: 02/04/201619993111-7506 [employer]. [address] [place] [address]. All righ ts reserved. This information is [...] by your healthcare provider Date Last Reviewed: 12/05/201519994198-0950 [employer]. [address] [place] [address]. All righ ts reserved. This information is [...] + + +---------+ + + | B Kutdntd-L-Pjtue | Take 1 tablet by | | [...] I have discussed the case with the FINANCE BROKER. I agree with his findings & documentation. [...] Antonio Carrasco MD - 10/21/2018 1500 PDT [facility] Service: NEPHROLOGY Progress Note Dara Weldon 23 y.o. [id number] female Jonathan Alonso MD Hospital Day: [...] - INSERTION; Surgeon: Rik Simon MD; Location: [facility] OR ; Service: Vascular; Laterality: N/A; tunneled catheter.br hemodialysis catheter KIDNEY BIOPSY Left 2003 OTHER SURGICAL HISTORY LAPAROSCOPIC PERITONEAL DIALYSIS CATHETER INSERTION - x2 OTHER SURGICAL HISTORY Right 07/2013 LAPAROSCOPIC PERITONEAL DIALYSIS CATHETER INSERTION - current dialysis access MWF dialysis OTHER SURGICAL HISTORY Left 06/24/2014 SUPERFICIALIZATION OF AV FISTULA - Procedure: AV FISTULA - SUPERFICIALIZATION; Surgeon: Emanuel Simon MD; Location: [facility] MAIN OR; Service: Vascular; Laterality: Left; OTHER SURGICAL HISTORY Left 04/08/2014 AV FISTULA PLACEMENT - Procedure: AV FISTULA; Surgeon: Rik Simon MD; Location: [facility]; Service: Vascular; Laterality: Left; cephalic OTHER SURGICAL HISTORY Left 03/07/2014 DECLOT GRAFT - Procedure: GRAFT - DECLOT; Surgeon: Rik Simon MD; Location: [facility] MAIN OR ; Service: Vascular; [...] Social History Narrative She lives in [facility]. She does not work. She has [...] MR, severe TR.severe pulmonary hyperten arturo Chest c-cql-dzdmctaalvxd with pulmonary edema and large right pleural [...] earlier and charting completed later Dictation software, Evino, used which may contain error for similar sounding words even af ter review. Personal communication requested for any clarification. Portions of my notes may have been carried over for continuity of care.Electronically ananth d by Antonio Benjamin MD at 10/21/2018 15:11 PDTVinGerber pastrana MD - 10/21/2018 0718 PDTFormat ting of this note might be different from the original. [facility] Adult Hospitalist Progress Note Hospital Day: 4 [...] BUN 90 on admission -History of a [place] Schnlein purpura -Last hemodialysis approximately 2 weeks ago -Currently undergoing daily hemodialysis, with volume removal -Nephrology has been consulted for hematology #2. 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 Follows Dr. Mahmodo -History of recurrent pleural effusions, ascites -Chest [...] Gerber Fernandez MD - 10/20/2018 0909 PDT [facility] Adult Hospitalist Progress Note Hospital Day: 3 [...] BUN 90 on admission -History of a [place] Schnlein purpura -Last hemodialysis approximately 2 weeks [...] E | | | | | | [place] [address] | | | | | | [phone] | | | | | | | [...] | | | performed at [facility], [address] | | LABORATORY | | | | [address], | | | | | | [place] [address] | | | | + + + + + + + + | Specimen | + + | Blood | + + + + + + + | Performing | Address | City/State/Zipcode | Phone Number | | Organization | | | | + + + + + | [facility] | [address] | [place] [address] | [phone] | + + + + + Basic [...] (L)Comment: GFR <60: | >60 | [facility] | | | GFR | [...] | | | | | | MDRD IDNH traceable | | | | | | equation.Testing | | | | | | performed at [facility], [address] | | | | | | [facility], | | | | | | [place] [address] | | | | + + + + + + + + | Specimen | + + | Blood | + + + + + + + | Performing | Address | City/State/Zipcode | Phone Number | | Organization | | | | + + + + + | [facility] | [address] | [place] [address] | [phone] | + + + + + Basic [...] 11 (L)Comment: GFR <60: | >60 | [facility] | | | GFR | [...] | | | | | | MDRD IDNH traceable | | | | | | equation.Testing | | | | | | performed at [facility], [address] | | | | | | [facility], | | | | | | [place] [address] | | | | + + + + + + + + | Specimen | + + | Blood | + + + + + + + | Performing | Address | City/State/Zipcode | Phone Number | | Organization | | | | + + + + + | [facility] | [address] | [place] [address] | [phone] | + + + + + Basic [...] [place];[address] | | | | | | [facility];[place], [place] | | | | | | [address] | | | | + + + + + + + + | Specimen | + + | Blood | + + + + + + + | Performing | Address | City/State/Zipcode | Phone Number | | Organization | | | | + + + + + | [facility] | [address] [facility] | [place] [address] | [phone] | + + + + + documented in this encounter Visit Diagnoses + + | Diagnosis | + + | Non-cardiogenic pulmonary edema - Primary Pulmonary congestion and hypostasis | + + | ESRD (end stage renal disease) ([facility]) End [...] | | | for platelets less than [address], | | + +---+ | | | [...]
--- OUTSIDE RECORDS SUMMARY | ~2018-12-09 | XMS | Encounter Summary ---
Demographics + + + | Address | [address] | | | [place] [address] | + + + | Home Phone [...] | | | | | [place] [address] | | + + + + + | Thania Mallory | ECON | [address] | | | | | [place] [address] | | + + + + + | Deidra Weldon | ECON | [address] | | | | | [place] | | | | | [address] | | + + + + + Care Team Providers + +------+ + | Care Water Resources Program Director Name | Role | Phone [...] class) | | | | ANNAL[address] [place] | [facility] | | | | | Rd [place], [place] | [place], [place] | | | | | [address] | [address] | | | | | [phone] | | | +--------+ + + + [...] Denise | | | | | | [place], [place] | | | | | | [address] | | | | | | [phone] | | | | | | | | +--------+ + + + + documented as of this encounter Visit Diagnoses Not on filedocumented in this encounter"
--- OUTSIDE RECORDS SUMMARY | ~2018-12-09 | XMS | Encounter Summary ---
Demographics + + + | Address | [address] | | | [place] [address] | + + + | Home Phone [...] | | | | | [place] [address] | | + + + + + | Thania Mallory | ECON | [address] | | | | | [place] [address] | | + + + + + | Deidra Weldon | ECON | [address] | | | | | [place] | | | | | [address] | | + + + + + Care Team Providers + +------+ + | Care Internal Salesperson Name | Role | Phone | [...] | | | | | [place], | | | | | | [place] [address] | | | +--------+ + + + [...] Denise | | | | | | [place], [place] | | | | | | [address] | | | | | | [phone] | | | | | | | [...] [facility] - | [address], | [place] [address] | | | IMMUNOGENETICS/TRANS | [address] | | | | PLANT LABORATORY | | | | + + + + + documented in this encounter Visit Diagnoses Not on filedocumented in this encounter"
--- OUTSIDE RECORDS SUMMARY | ~2018-12-09 | XMS | Encounter Summary ---
Demographics + + + | Address | [address] | | | [place] [address] | + + + | Home Phone [...] | | | | | [place] [address] | | + + + + + | Thania Mallory | ECON | [address] | | | | | [place] [address] | | + + + + + | Deidra Weldon | ECON | [address] | | | | | [place] | | | | | [address] | | + + + + + Care Team Providers + +------+ + | Care Wire Annealer Name | Role | Phone | + [...] attempt(s) to | | | | Rd [place], [place] | [place], [place] | contact pt re move | | | | [address] | [address] | and new PAF as | | | | [phone] | | listed) | +--------+ + + [...] Denise | | | | | | [place], [place] | | | | | | [address] | | | | | | [phone] | | | | | | | | +--------+ + + + + documented as of this encounter Visit Diagnoses Not on filedocumented in this encounter"
--- OUTSIDE RECORDS SUMMARY | ~2018-12-09 | XMS | Encounter Summary ---
Demographics + + + | Address | [address] | | | [place] [address] | + + + | Home Phone [...] | | | | | [place] [address] | | + + + + + | Thania Mallory | ECON | [address] | | | | | [place] [address] | | + + + + + | Deidra Weldon | ECON | [address] | | | | | [place] | | | | | [address] | | + + + + + Care Team Providers + +------+ + | Care Helminthologist Name | Role | Phone | + [...] (Delisting) | | | | ANNALISA Hoffmann [facility] | [facility] | | | | | Rd [place], [place] | [place], [place] | | | | | [address] | [address] | | | | | [phone] | | | +--------+ + + + [...] | | | | | | [place] | | | | | | [address] | | | | | | [phone] | | | | | | | | +--------+ + + + + documented as of this encounter Visit Diagnoses Not on filedocumented in this encounter"
--- OUTSIDE RECORDS SUMMARY | ~2018-12-09 | XMS | Encounter Summary ---
Demographics + + + | Address | [address] | | | [place] [address] | + + + | Home Phone [...] | | | | | [place] [address] | | + + + + + | Thania Mallory | ECON | [address] | | | | | [place] [address] | | + + + + + | Deidra Weldon | ECON | [address] | | | | | [place] | | | | | [address] | | + + + + + Care Team Providers + +------+ + | Care Figurine Maker Name | Role | Phone | [...] date) | | | | ANNALISA [facility]mann [facility] | [facility] | | | | | Rd [place], [place] | [place], [place] | | | | | [address] | [address] | | | | | [phone] | | | +--------+ + + + [...] Denise | | | | | | [place], [place] | | | | | | [address] | | | | | | [phone] | | | | | | | | +--------+ + + + + documented as of this encounter Visit Diagnoses Not on filedocumented in this encounter"
--- OUTSIDE RECORDS SUMMARY | ~2018-12-09 | XMS | Encounter Summary ---
Demographics + + + | Address | [address] | | | [place] [address] | + + + | Home Phone [...] | | | | | [place] [address] | | + + + + + | Thania Mallory | ECON | [address] | | | | | [place] [address] | | + + + + + | Deidra Weldon | ECON | [address] | | | | | [place] | | | | | [address] | | + + + + + Care Team Providers + +------+ + | Care Synthetic Department Supervisor Name | Role | Phone [...] | | | | | [place], | | | | | | [place] [address] | | | +--------+ + + + [...] Denise | | | | | | [place], [place] | | | | | | [address] | | | | | | [phone] | | | | | | | [...] [facility] - | [address], | [place] [address] | | | IMMUNOGENETICS/TRANS | [address] | | | | PLANT LABORATORY | | | | + + + + + documented in this encounter Visit Diagnoses Not on filedocumented in this encounter"
--- OUTSIDE RECORDS SUMMARY | ~2018-12-09 | XMS | Encounter Summary ---
Demographics + + + | Address | [address] | | | [place] [address] | + + + | Home Phone [...] | | | | | [place] [address] | | + + + + + | Thania Mallory | ECON | [address] | | | | | [place] [address] | | + + + + + | Deidra Weldon | ECON | [address] | | | | | [place] | | | | | [address] | | + + + + + Care Team Providers + +------+ + | Care Servicing Rep Name | Role | Phone | [...] | Update | | | | [facility] | [facility] | | | | | Rd [place], [place] | [place], [place] | | | | | [address] | [address] | | | | | [phone] | | | +--------+ + + + [...] [place] | | | | | | [address] | | | | | | [phone] | | | | | | | | +--------+ + + + + documented as of this encounter Visit Diagnoses Not on filedocumented in this encounter"
--- OUTSIDE RECORDS SUMMARY | ~2018-12-09 | XMS | Encounter Summary ---
Demographics + + + | Address | [address] | | | [place] [address] | + + + | Home Phone [...] | Author | [facility] [employer] (Historical as of | | | 10-20-18) | + + + | Organization | [facility] [employer] (Historical as of | | | 10-20-18) [...] Providers + +------+ + | Care Fruit Harvest Machine Operator Name | Role | Phone [...] | | 2018 | on Only | [address] | [address] | 2019-[facility] Provider | | | | [address] | [address], [place] | Dialysis Rounding | | | | [place] [address] | [address] | Note) | | | | [phone] | | | +--------+ + + + [...] | | | | | [place] [address] | | | | | | [phone] | | | | | | | | +--------+---------+ + + + as of this encounter Visit Diagnoses Not on filein this encounter"
--- OUTSIDE RECORDS SUMMARY | ~2018-12-09 | XMS | Encounter Summary ---
Demographics + + + | Address | [address] | | | [place] [address] | + + + | Home Phone [...] | | | | | [place] [address] | | + + + + + | Thania Mallory | ECON | [address] | | | | | [place] [address] | | + + + + + | Deidra Weldon | ECON | [address] | | | | | [place] | | | | | [address] | | + + + + + Care Team Providers + +------+ + | Care Border Police Name | Role | Phone | + [...] Change (Close | | | | ANNALISA [facility] | [facility] | referral) | | | | Rd [place], [place] | [facility] [place] | | | | | [address] | [address] | | | | | [phone] | | | +--------+ + + + [...] [place] | | | | | | [address] | | | | | | [phone] | | | | | | | | +--------+ + + + + documented as of this encounter Visit Diagnoses Not on filedocumented in this encounter"
--- OUTSIDE RECORDS SUMMARY | ~2018-12-09 | XMS | Encounter Summary ---
Demographics + + + | Address | [address] | | | [place] [address] | + + + | Home Phone [...] | | | | | [place] [address] | | + + + + + | Thania Mallory | ECON | [address] | | | | | [place] [address] | | + + + + + | Deidra Weldon | ECON | [address] | | | | | [place] | | | | | [address] | | + + + + + Care Team Providers + +------+ + | Care Bakery Sales Clerk Name | Role | Phone | [...] Shun | | | | | at [facility] | [facility] | | | | | [address] | [place] [address] | | | | | [facility] | | | | | | Mailcode: [id number] [facility] | | | | | | [facility] | | | | | | [facility], | | | | | | [place] [address] | | | | | | [phone] | | | +--------+ + + + [...] Denise | | | | | | [place], [place] | | | | | | [address] | | | | | | [phone] | | | | | | | [...] | e | 11:49 AM | MEDICARE 9689 | procedure are in the | | [...] view image for the detailed interpretation from [employer] results. | CARDIOLOGY | + + + + + | Procedure Note | + + | Interface, Cardiology Results - 12/21/2012 9:38 AM PDT Please click on view image | | for the detailed interpretation from [employer] results. 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
--- OUTSIDE RECORDS SUMMARY | ~2018-12-09 | XMS | Encounter Summary ---
Demographics + + + | Address | [address] | | | [place] [address] | + + + | Home Phone [...] | | | | | [place] [address] | | + + + + + | Thania Mallory | ECON | [address] | | | | | [place] [address] | | + + + + + | Deidra Weldon | ECON | [address] | | | | | [place] | | | | | [address] | | + + + + + Care Team Providers + +------+ + | Care Chart Writer Name | Role | Phone | [...] | | Nephrology at | MD Emanuel [address] | | | | | [address] | [address] | | | | | [facility] | [place], [place] | | | | | [address] | [address] | | | | | Caro Chan Mailcode: | [phone] | | | | | [address] | | | | | | [place], [place] | | | | | | [address] | | | | | | [phone] | | | +--------+ + + + [...] Denise | | | | | | [place], [place] | | | | | | [address] | | | | | | [phone] | | | | | | | [...]
--- OUTSIDE RECORDS SUMMARY | ~2018-12-09 | XMS | Encounter Summary ---
Demographics + + + | Address | [address] | | | [place] [address] | + + + | Home Phone [...] | | | | | [place] [address] | | + + + + + | Thania Mallory | ECON | [address] | | | | | [place] [address] | | + + + + + | Deidra Weldon | ECON | [address] | | | | | [place] | | | | | [address] | | + + + + + Care Team Providers + +------+ + | Care Advertising Assistant Manager Name | Role | Phone | [...] 2005 | Registratio | [address] | [phone] | | | | n | Rd Mailcode: [id number] | | | | | | [place], [place] | | | | | | [address] | | | | | | [phone] | | | +--------+ + + + [...] Denise | | | | | | [place], [place] | | | | | | [address] | | | | | | [phone] | | | | | | | [...] | [facility] | | | PATHOLOGY | [facility] | | DEPARTMENT | | [...] Joy | | | | | | [facility], | | | | | | [place],labeled tribe | | | | | | [...] wall | | | | | | [id number]: | | | | | | NegativeFibrinogen: [...] | + + + + + | [facility] | [address] | [place] [address] | | | PATHOLOGY | [address] | | | + + + + + | [facility] | [address] | [place] [address] | | | PATHOLOGY | [address] | | | + + + + + documented in this encounter Visit Diagnoses Not on filedocumented in this encounter"
--- OUTSIDE RECORDS SUMMARY | ~2018-12-09 | XMS | Encounter Summary ---
Demographics + + + | Address | [address] | | | [place] [address] | + + + | Home Phone [...] | | | | | [place] [address] | | + + + + + | Thania Mallory | ECON | [address] | | | | | [place] [address] | | + + + + + | Deidra Weldon | ECON | [address] | | | | | [place] | | | | | [address] | | + + + + + Care Team Providers + +------+ + | Care Electrical Subcontractor Name | Role | Phone | + +------+ + PCP | Unavailable | + +------+ + Reason for Visit + + + | Reason | Comments | + + + | Transplant Form | dietary worker 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 | | Update | [...] (Social | | | | ANNALISA Hoffmann [facility] | [address] [facility] | worker dates | | | | [place], [place] | [place], [place] | updated) | | | | [address] | [address] | | | | | [phone] | [phone] | | | | | | | [...] [place] | | | | | | [address] | | | | | | [phone] | | | | | | | | +--------+ + + + + documented as of this encounter Visit Diagnoses Not on filedocumented in this encounter"
--- OUTSIDE RECORDS SUMMARY | ~2018-12-09 | XMS | Encounter Summary ---
Demographics + + + | Address | [address] | | | [place] [address] | + + + | Home Phone [...] | | | | | [place] [address] | | + + + + + | Thania Mallory | ECON | [address] | | | | | [place] [address] | | + + + + + | Deidra Weldon | ECON | [address] | | | | | [place] | | | | | [address] | | + + + + + Care Team Providers + +------+ + | Care Rn Bariatric Name | Role | Phone | + +------+ + | Shahid Camargo MD | PCP | Unavailable | + +------+ + Encounter Details +--------+ + + + + | Date | Type | Department | Care Team | Description | +--------+ + + + + | 12/19/ | Document-Sc | UNKNOWN DEPARTMENT | Unknown . | | | 2012 | anned | [address] | | | | | | [address] | | | | | | [place], [place] | | | | | | [address] | | | +--------+ + + + [...] Denise | | | | | | [place], [place] | | | | | | [address] | | | | | | [phone] | | | | | | | | +--------+ + + + + documented as of this encounter Visit Diagnoses Not on filedocumented in this encounter"
--- OUTSIDE RECORDS SUMMARY | ~2018-12-09 | XMS | Encounter Summary ---
Demographics + + + | Address | [address] [address] [facility] [place] [address] | | | [place] [address] | + + + | Home Phone [...] | | | | | [place] [address] | | + + + + + | Thania Mallory | ECON | [address] | | | | | [place] [address] | | + + + + + | Deidra Weldon | ECON | [address] | | | | | [place] | | | | | [address] | | + + + + + Care Team Providers + +------+ + | Care Cell Maker Name | Role | Phone | [...] Decision | | | | ANNALISA Hoffmann [facility] | [facility] | | | | | Rd [place], [place] | [place], [place] | | | | | [address] | [address] | | | | | [phone] | | | +--------+ + + + [...] [place] | | | | | | [address] | | | | | | [phone] | | | | | | | | +--------+ + + + + documented as of this encounter Visit Diagnoses Not on filedocumented in this encounter"
--- OUTSIDE RECORDS SUMMARY | ~2018-12-09 | XMS | Encounter Summary ---
Demographics + + + | Address | [address] | | | [place] [address] | + + + | Home Phone [...] | | | | | [place] [address] | | + + + + + | Thania Mallory | ECON | [address] | | | | | [place] [address] | | + + + + + | Deidra Weldon | ECON | [address] | | | | | [place] | | | | | [address] | | + + + + + Care Team Providers + +------+ + | Care Associate Attorney Name | Role | Phone | [...] | Summary | | | | [address] [facility] | [facility] | | | | | Rd [place], [place] | [place], [place] | | | | | [address] | [address] | | | | | [phone] | | | +--------+ + + + [...] [place] | | | | | | [address] | | | | | | [phone] | | | | | | | | +--------+ + + + + documented as of this encounter Visit Diagnoses Not on filedocumented in this encounter"
--- OUTSIDE RECORDS SUMMARY | ~2018-12-09 | XMS | Encounter Summary ---
Demographics + + + | Address | [address] | | | [place] [address] | + + + | Home Phone [...] + | Author | [facility] (Historical as of | | | 10-20-18) | + + + | Organization | [facility] (Historical as of | | | 10-20-18) [...] Providers + +------+ + | Care Instrument Repair Specialist Name | Role | Phone | [...] | | 2018 | on Only | [place] [address] | [address] | [facility] Provider | | | | [address] | [address] [place], [place] | Dialysis Rounding | | | | [place] [address] | [id number] | Note) | | | | [phone] | | | +--------+ + + + [...] | | | | | [place] [address] | | | | | | [phone] | | | | | | | | +--------+---------+ + + + as of this encounter Visit Diagnoses Not on filein this encounter"
--- OUTSIDE RECORDS SUMMARY | ~2018-12-09 | XMS | Encounter Summary ---
Demographics + + + | Address | [address] | | | [place] [address] | + + + | Home Phone [...] | | | | | [place] [address] | | + + + + + | Thania Mallory | ECON | [address] | | | | | [place] [address] | | + + + + + | Deidra Weldon | ECON | [address] | | | | | [place] | | | | | [address] | | + + + + + Care Team Providers + +------+ + | Care Principal Android Developer Name | Role | Phone | [...] | | | ANNALISA [facility] | [facility] | | | | | Rd [place], [place] | [place], [place] | | | | | [address] | [address] | | | | | [phone] | | | +--------+ + + + [...] Denise | | | | | | [place], [place] | | | | | | [address] | | | | | | [phone] | | | | | | | | +--------+ + + + + documented as of this encounter Visit Diagnoses Not on filedocumented in this encounter"
--- OUTSIDE RECORDS SUMMARY | ~2018-12-09 | XMS | Encounter Summary ---
Demographics + + + | Address | [address] | | | [place] [address] | + + + | Home Phone [...] | | | | | [place] [address] | | + + + + + | Thania Mallory | ECON | [address] | | | | | [place] [address] | | + + + + + | Deidra Weldon | ECON | [address] | | | | | [place] | | | | | [address] | | + + + + + Care Team Providers + +------+ + | Care Leach Runner Name | Role | Phone | [...] | renal | [address] [facility] | | | | | disease | Shun Griffin | Elias Elizondo | | | | | (HCC) | [address]o [address] | [place], | | | | | Allergic | [place], [place] | [place] | | | | | purpura | [address] | [address] | | | | | ([facility]LY [facility]) | Phone: | Phone: | | | | | | [phone] | [phone] | | | | | | Fax: | Fax: | | | | | | [phone] | [phone] | +--------+--------+ + + + + Encounter Details +--------+ + + + + | Date | Type | Department | Care Team | Description | +--------+ + + + + | 12/20/ | Hospital | Radiology at [facility] | | | | 2012 | Encounter | [address] | | | | | | Caro Chan Mailcode: | | | | | | [email or web address] | | | | | | [place], [place] | | | | | | [address] | | | | | | [phone] | | | +--------+ + + + [...] | | | | | | [place], [place] | | | | | | [address] | | | | | | [phone] | | | | | | | [...] | e | 9:58 AM | MEDICARE 0048 | procedure are in the | | [...] | | + +---------+ + + | [facility] DEPARTMENT OF | | | | | RADIOLOGY | | | | + +---------+ + + documented in this encounter Visit Diagnoses + + | Diagnosis | + + | 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
--- OUTSIDE RECORDS SUMMARY | ~2018-12-09 | XMS | Clinical Summary ---
Demographics + + + | Address | [address] | | | [place] [address] | + + + | Home Phone [...] Author | [facility] | | | and Josephana | + + + | Organization | [facility] | [...] Providers + +------+ + | Care Financial Systems Administrator Name | Role | Phone [...] | | | renal disease) ([facility]) | protocol | | | [...] Noted Date | + + + | Pericardial effusion without cardiac tamponade | 11/07/2018 | + + + | Pulmonary edema with congestive heart failure with reduced left | 11/06/2018 | | ventricular function | | + + + | ESRD on hemodialysis | 11/06/2018 | + + + | Non-cardiogenic pulmonary edema | 08/20/2018 | + + + | Other ascites | 07/19/2018 | + + + | Troponin I above reference range | 07/19/2018 | + + + | Chronic right-sided [...] Overview: Active Kidney Transplant Waiting List at [facility]: | | 03/07/2014 | [...] | | Treated by Dr. Joy, pediatric care coordinator. | + + + +---+ | ESRD [...] declot | | but reclotted). Listed at [facility] for kidney transplant - [...] | + + + + | Acute hypoxemic respiratory failure | 07/19/19 | | | | 19 [...] Telephone | Hospitalist | Silvia Rabago | AGUSTIN (OXYGEN) | | 2018 | | | ABRIL Hernandez | | +--------+ + + + + | 11/12/ | Telephone | Hospitalstevan | Silvia Rabago | DME (oxygen, cmn, | | 2018 | | | ABRIL Hernandez | IHM) | +--------+ + + + + | 11/06/ | Hospital | Internal Medicine | Johnathan Brooks, | Chronic right-sided | | 2019 - | Encounter | | Darell Dobbs, | heart failure (HCC) | | | | | MD | (Primary Dx); Acute | | 11/09/ | | | | hypoxemic | | 2018 | | | | respiratory failure | | | | | | ([facility]); 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 | | | | | | failure ([facility]); | | | | | | 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 | | | | | | ([facility]); ESRD on | | | | | | hemodialysis ([facility]); | | | | | | Moderate to severe | | | | | | pulmonary | | | | | | hypertension ([facility]); | | | | | [...] | | | | function ([facility]); | | | | | | Non-compliance; | | | | | | Troponin I above | | | | | | reference range; | | | | | | Anemia in ESRD | | | | | | (end-stage renal | | | | | | disease) ([facility]); At | | | | [...] Nikita, | ESRD (end stage | | 2018 - | Encounter | | MD Naresh | renal disease) | | | | | Gerber Pearson MD | ([facility]); Dilated | | 10/22/ | | | | cardiomyopathy | | 2019 | | | | ([facility]); | | | | | | Non-cardiogenic | | | | | | pulmonary edema; | | | | | | Anemia in ESRD | | | | | | (end-stage renal | | | | | | disease) ([facility]); | | | | | [...] | | | ([facility]); At high risk | | | | | | for electrolyte | | | | | | imbalance; | | | | | | Non-compliance; | | | | | | Hypoalbuminemia | +--------+ + + + + | 10/17/ | Hospital | Internal Medicine | Nikita, | SOB (shortness of | | 2018 - | Encounter | | MD Naresh | breath); Pleural | | | | | | effusion on right; | | | | | | ESRD needing | | 2019 | | | | dialysis ([facility]); End | | | | | | stage renal disease | | | | | | ([facility]) | +--------+ + + + + | 10/08/ | Orders Only | | Provider, | Systolic congestive | | 2018 | | | MD Rubén | heart failure (HCC) | +--------+ + + + + from [...] + | Blood Pressure | 124/63 | 11/09/20181139 PDT | + + + [...] 1511 PDT | + + + + Plan [...] [address] | | | | | | [place] [address] | | | | | | [phone] | | | | | | | [...] + + | Vaccine: Influenza | | 11/24/2017, 12/13/2012 | | | (#1) | 9 | [...] Left: | SYNOVIS - | | | [id number] | | 0.8x8cm - [id number]: | | Arm | SYNO | | [...] | | | COVIDIEN | | | [id number] | | | | | -MATT 867 - | | | 3404 / | | | | | COVI | | | | | | | | | | | /[id number] | | | | | | | [...] + + from Last 3 Months Results HEMODIALYSIS (11/09/2018 9:34 PDT) + + + | Narrative | Performed At | + + + | Billie Gupta MD 11/09/2018 9:34 [facility] | | | [facility] Hemo-Dialysis Procedure note Pt is [...] | | . 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 | | | Constitutional: pt appears [...] MD 11/09/2018 | | + + + Protime INR (11/09/2018 4:14 PDT)Only the most recent of 5 results [...] at [facility] | | | | | | [address] [facility];[place], [place] | | | | | | [address] | | | | + + + + + + + + | Specimen | + + | Blood | + + + + + + + | Performing | Address | City/State/Zipcode | Phone Number | | Organization | | | | + + + + + | [facility] | [address] | [place] [address] | [phone] | + + + + + CBC with Differential (11/09/2018 4:14 PDT)Only the most recent of 2 results within the de period is included. + + + + [...] LABORATORY | | | | performed at [facility], [address] | | | | | | [address], | | | | | | [place] [address] | | | | | | | | | | + + + + + + + + | Specimen | + + | Blood | + + + + + + + | Performing | Address | City/State/Zipcode | Phone Number | | Organization | | | | + + + + + | [facility] | [address] | [place] [address] | [phone] | + + + + + Phosphorus (11/09/2018 4:14 PDT) + + + + + + | Component | Value | Ref Range | Performed | Pathologist | | | | | At | Signature | + + + + + + | Phosphorus | 7.6 (H)Comment: Testing | 2.3 - 4.8 mg/dL | [facility] | | | | performed at [facility], [address] | | LABORATORY | | | | [address], | | | | | | [place] [address] | | | | + + + + + + + + | Specimen | + + | Blood | + + + + + + + | Performing | Address | City/State/Zipcode | Phone Number | | Organization | | | | + + + + + | [facility] | [address] | [place] [address] | [phone] | + + + + + Comprehensive Metabolic Panel (11/09/2018 4:14 PDT)Only the most recent of 4 results withi n the time period is [...] | | | | | [place] [address] | | | | + + + + + + + + | Specimen | + + | Blood | + + + + + + + | Performing | Address | City/State/Zipcode | Phone Number | | Organization | | | | + + + + + | [facility] | [address] | [place] [address] | [phone] | + + + + + XR [...] | Matt, Rad Results In - 11/07/2018 1655 PDT [...] Guided Thoracentesis wo Chest Tube (11/07/2018 15:35 PDT)Only the most recent of 2 resul ts within the time period is [...] is | | | punctured with an 5-Libyan thoracentesis catheter. Fluid is aspirated | | [...] | Matt, Rad Results In - 11/07/2018 1554 PDT [...] the pleural space is punctured with an 5-Libyan | | thoracentesis catheter. Fluid is aspirated [...] | | LABORATORY | | | | Blvd;[place] [address] | | | | + + + [...] | Testing performed at | | [facility] | | | | TCL, [address] | | LABORATORY | | | | [place], [place] | | | | | | [address]: Testing | | | | | | performed at [facility], [address] | | | | | | [facility], [place], [place] | | | | | | [address] | | | | + + + + + + + + | Specimen | + + | Body Fluid | + + + + + + + | Performing | Address | City/State/Zipcode | Phone Number | | Organization | | | | + + + + + | [facility] | [address] | [place] [address] | [phone] | + + + + + Cell [...] + + + | BF RBC | <71307 | /mm3 | [facility] | | | [...] | | | Counted | performed at [facility] | | LABORATORY | | | | [address];[place] | | | | | | [address] | | | | + + + + + + + + | Specimen | + + | Body Fluid | + + + + + + + | Performing | Address | City/State/Zipcode | Phone Number | | Organization | | | | + + + + + | [facility] | [address] | [place] [address] | [phone] | + + + + + Protein, Body Fluid (11/07/2018 15:15 PDT) + + + + + + | Component | Value | Ref Range | Performed | Pathologist | | | | | At | Signature | + + + + + + | Protein, BF | 3.4Comment: This is not | g/dL | [facility] | | | | a director gift validated | | LABORATORY | | | [...] | | | | | [place] [address] | | | | + + + + + + | SOURCE | PLEURAL FLUIDComment: | | MISHEL | | | | Testing performed at | | LABORATORY | | | | [facility];[address] | | | | | [address];[place] [address] | | | | + + + + + + + + | Specimen | + + | Body Fluid | + + + + + + + | Performing | Address | City/State/Zipcode | Phone Number | | Organization | | | | + + + + + | [facility] | [address] | [place] [address] | [phone] | + + + + + Lactate dehydrogenase, body fluid (11/07/2018 15:15 PDT) + + + + + + | Component | Value | Ref Range | Performed | Pathologist | | | | | At | Signature | + + + + + + | LDH, BODY | 102Comment: This is not | U/L | [facility] | | | FLUID | a director gift validated | | LABORATORY | | | | sample type for this | | | | | | method. No | | | | | | referenceranges have | | | | | | been established.Testing | | | | | | performed at [facility], [address] | | | | | | [address] [facility], | | | | | | [place] [address] | | | | + + + + + + + + | Specimen | + + | Body Fluid | + + + + + + + | Performing | Address | City/State/Zipcode | Phone Number | | Organization | | | | + + + + + | [facility] | [address] | [place] [address] | [phone] | + + + + + Glucose, Body Fluid (11/07/2018 15:15 PDT) + + + + + + | Component | Value | Ref Range | Performed | Pathologist | | | | | At | Signature | + + + + + + | Glucose | 96Comment: This is not a | mg/dL | [facility] | | | Fluid | director gift validated | | LABORATORY | | | [...] | | | | | [place] [address] | | | | + + + + + + | SOURCE | PLEURAL FLUIDComment: | | [facility] | | | | Testing performed at | | LABORATORY | | | | [facility];[address] | | | | | | [address];[place] [address] | | | | + + + + + + + + | Specimen | + + | Body Fluid | + + + + + + + | Performing | Address | City/State/Zipcode | Phone Number | | Organization | | | | + + + + + | [facility] | [address] | [place] [address] | [phone] | + + + + + Amylase, Body Fluid (11/07/2018 15:15 PDT) + + + + + + | Component | Value | Ref Range | Performed | Pathologist | | | | | At | Signature | + + + + + + | AMYLASE | 46Comment: This is not a | U/L | [facility] | | | FLUID | director gift validated | | LABORATORY | | | [...] | | | | | [place] [address] | | | | + + + + + + + + | Specimen | + + | Body Fluid | + + + + + + + | Performing | Address | City/State/Zipcode | Phone Number | | Organization | | | | + + + + + | [facility] | [address] | [place] [address] | [phone] | + + + + + Albumin, Body Fluid (11/07/2018 15:15 PDT) + + + + + + | Component | Value | Ref Range | Performed | Pathologist | | | | | At | Signature | + + + + + + | Albumin, | 2.0Comment: This is not | g/dL | [facility] | | | Fluid | a director gift validated | | LABORATORY | | | | sample type for this | | | | | | method. No | | | | | | referenceranges have | | | | | | been established.Testing | | | | | | performed at [facility], [address] | | | | | | [address] [facility], | | | | | | [place] [address] | | | | + + + + + + + + | Specimen | + + | Body Fluid | + + + + + + + | Performing | Address | City/State/Zipcode | Phone Number | | Organization | | | | + + + + + | [facility] | [address] | [place] [address] | [phone] | + + + + + Medical Cytology (11/07/2018 15:15 PDT) + + | Specimen | + + | Body Fluid | + + + + + | Narrative | Performed At | + + + | ORDERING | CT PATHOLOGY | | PHYSICIAN:Dex ALMEIDA, Darell U PATIENT NAME:DARA LOUISE | INCYTE | | RAYEGENDER: Alysia : 1995 SPECIMEN(S): [...] | | | preparation was performed by [facility], [address] | | | [place] [address] (Equipment Associate: Matt Claudio D.O.; | | | CLIA#: [id number]).Professional interpretation was performed by | | | [facility], [address], | | | [place] [id number] (Equipment Associate: Daniel Larson M.D.; | | | CLIA#: [id number]).6 Diagnostician: Enrrique Nichols | | | CT([facility])CytotechnologistDiagnostician: Daniel Larson | | | MDPathologistElectronically Signed 11/13/2018 | | |DESCRIPTION: | | |The preparations contain mesothelial cells, rare inflammatory cells, and acellular proteina ceous material. Atypical cytologic findings are not encountered. | | | | | |SPECIMEN ADEQUACY: | | |Satisfactory for Evaluation | | | | | |PERFORMING LABORATORY: | | |Technical preparation was performed by [facility], [address] [place] [address] (Equipment Associate: Matt Claudio D.O.; CLIA#: [id number]). | | |Professional interpretation was performed by [facility], [facility], [address] [place] [address] (Equipment Associate: Daniel Larson M.D.; IA# : [id number]).6 | | | | | |Diagnostician: Enrrique BROOKS([facility]) | | |Finisher Tailor Apprentice | | |Diagnostician: Daniel Larson MD | [...] assessment. Signed by: Delfin, | | | Brian Kay Sign Date/Time: [...] + + ECG 12 lead (11/07/2018 8:03 PDT)Only the most recent of 3 results [...] +---------+ + + Troponin I (11/07/2018 7:34 PDT)Only the most recent of 6 results within the time period i s [...] | [facility];[address] [facility] | | | | | | [facility];[place] [address] | | | | + + + + + + + + | Specimen | + + | Blood | + + + + + + + | Performing | Address | City/State/[facility] Cent[facility]ode | Phone Number | | Organization | | | | + + + + + | [facility] | [address] | [place] [address] | [phone] | + + + + + PTT [...] [place] | | | | | | [address] | | | | + + + + + + + + | Specimen | + + | Blood | + + + + + + + | Performing | Address | City/State/Zipcode | Phone Number | | Organization | | | | + + + + + | [facility] | [address] | [place] [address] | [phone] | + + + + + Platelet Count (11/07/2018 4:03 PDT) + + + + + + | Component | Value | Ref Range | Performed | Pathologist | | | | | At | Signature | + + + + + + | Platelet | 185Comment: Testing | 150 - 400 K/uL | [place] | | | Count | performed at [facility], [address] | | LABORATORY | | | | [address], | | | | | | [place] [address] | | | | + + + + + + + + | Specimen | + + | Blood | + + + + + + + | Performing | Address | City/State/Zipcode | Phone Number | | Organization | | | | + + + + + | [facility] | [address] | [place] [address] | [phone] | + + + + + Magnesium (11/07/2018 4:03 PDT)Only the most recent of 3 results within the time period is included. + + + + + + | Component | Value | Ref Range | Performed | Pathologist | | | | | At | Signature | + + + + + + | Magnesium | 2.3Comment: Testing | 1.7 - 2.4 mg/dL | [facility] | | | | performed at [facility];[address] | | LABORATORY | | | | [address];[place], [place] | | | | | | [address] | | | | + + + + + + + + | Specimen | + + | Blood | + + + + + + + | Performing | Address | City/State/Zipcode | Phone Number | | Organization | | | | + + + + + | [facility] | [address] | [place] [address] | [phone] | + + + + + Lactate [...] [place] | | | | | | [address] | | | | + + + + + + + + | Specimen | + + | Blood | + + + + + + + | Performing | Address | City/State/Zipcode | Phone Number | | Organization | | | | + + + + + | [facility] | [address] | [place] [address] | [phone] | + + + + + ECHO [...] + +---------+ + + CBC no Differential (10/22/2018 13:10 PDT) + [...] MPV | 10.4Comment: Testing | fl | [facility] | | | | performed at [facility], [address] | | LABORATORY | | | | [address], | | | | | | [place] [address] | | | | + + + + + + + + | Specimen | + + | Blood | + + + + + + + | Performing | Address | City/State/Zipcode | Phone Number | | Organization | | | | + + + + + | [facility] | [address] | [place] [address] | [phone] | + + + + + Basic Metabolic Panel (10/22/2018 5:33 PDT)Only the most recent of 4 results within the period is included. + [...] Hospital, | | | | | | [place] [address] | | | | + + + + + + + + | Specimen | + + | Blood | + + + + + + + | Performing | Address | City/State/Zipcode | Phone Number | | Organization | | | | + + + + + | [facility] | [address] | [place] [address] | [phone] | + + + + + XR [...] CHEST 1 VIEW (10/17/2018); CHEST TWO VIEWS 70647 | | | (10/17/2018); FINDINGS: Compared to [...] VIEW | | (10/17/2018); CHEST TWO VIEWS 66345 (10/17/2018); | | FINDINGS: | | Compared [...] | | | | | | at [facility], [address] | | | | | | [facility], | | | | | | [place] [address] | | | | | |Testing performed at [facility], [address] [facility], [place] [address] | | | | | | | [...] [facility];[address] | | LAB | | | | [facility];[place], [place] | | | | | | [address] | | | | + + + [...] | [facility];[address] [place] [address] | | | | | | kelly;[place] [address] | | | | + + + [...] | | LAB | | | | [facility];[address] [facility] | | | | | | [address];[place] [address] | | | | + + + [...] +--------+ +---------+--------+ | MEDICARE | MEDICA | [id number] | 05/05/19 | [phone] | | Medica | | | RE | | 13-Pre | 5 | | re | | | PART A | | sent | | | | | | AND B | | | | | | + +--------+ +--------+ +---------+--------+ | MEDICARE | MEDICA | [id number] | 05/05/19 | [phone] | | Medica | | | RE | | 13-Pre | 5 | | re | | | PART A | | sent | | | | | | AND B | | | | | | + +--------+ +--------+ +---------+--------+ | [employer]AN | MODA | [id number] | | [phone] | | Medica | | MEDICAID HMO | HEALTH | | 019-Pr | 1 | | id | | | MDCD | | esent | | | | | | [place] | | | | | | + +--------+ +--------+ +---------+--------+ | [employer] | MODA | [id number] | | [phone] | | Medica | | MEDICAID HMO [...] [place] | | | 2 (Home) | [address] | + +--------+ +--------+ + + | Dara Louise | Person | Self [birth year] | [address] | | | al/Fam | | 1994 | [phone] | [address] [place], [place] | | | [place] | | | 2 (Home) | [address] | + +--------+ +--------+ + + | Cory Louise | Person | Father | [birth year] | [address] | | | al/Fam | | 1971 | [phone] | [place] [address] | | | [place] | | | 9 (Home) | | + +--------+ +--------+ + + Advance Directives Patient has advance care planning documents, and code status on file. For more information, please contact:[facility] [place] [address] + + + + + | Code Status | Date | Date | Comments | | | Activated | Inactivated | | + + + + + | Full Code | 11/07/2018 | 11/09/2018 | | | | 19:17 | 16:32 | | + + + + + [...]
--- OUTSIDE RECORDS SUMMARY | ~2018-12-09 | XMS | Encounter Summary ---
Demographics + + + | Address | [address] | | | [place] [address] | + + + | Home Phone [...] | | | | | [place] [address] | | + + + + + | Thania Mallory | ECON | [address] | | | | | [place] [address] | | + + + + + | Deidra Weldon | ECON | [address] | | | | | [place] | | | | | [address] | | + + + + + Care Team Providers + +------+ + | Care Trench Digger Helper Name | Role | Phone | [...] | Decision | | | | [address] [facility] | [facility] | | | | | Rd [place], [place] | [place], [place] | | | | | [address] | [address] | | | | | [phone] | | | +--------+ + + + [...] [place] | | | | | | [address] | | | | | | [phone] | | | | | | | | +--------+ + + + + documented as of this encounter Visit Diagnoses Not on filedocumented in this encounter"
--- OUTSIDE RECORDS SUMMARY | ~2018-12-09 | XMS | Encounter Summary ---
Demographics + + + | Address | [address] | | | [place] [address] | + + + | Home Phone [...] | | | | | [place] [address] | | + + + + + | Thania Mallory | ECON | [address] | | | | | [place] [address] | | + + + + + | Deidra Weldon | ECON | [address] | | | | | [place] | | | | | [address] | | + + + + + Care Team Providers + +------+ + | Care Farm Tractor Mechanic Name | Role | Phone | [...] | Committee | | | | [address] [facility] | [facility] | recommendations) | | | | Rd [place], [place] | [place] | | | | | [address] | [address] | | | | | [phone] | | | +--------+ + + + [...] Denise | | | | | | [place] | | | | | | [address] | | | | | | [phone] | | | | | | | | +--------+ + + + + documented as of this encounter Visit Diagnoses Not on filedocumented in this encounter"
--- OUTSIDE RECORDS SUMMARY | ~2018-12-09 | XMS | Encounter Summary ---
Demographics + + + | Address | [address] | | | [place] [address] | + + + | Home Phone [...] | | | | | [place] [address] | | + + + + + | Thania Mallory | ECON | [address] | | | | | [place] [address] | | + + + + + | Deidra [place]don | ECON | [address] | | | | | [place] | | | | | [address] | | + + + + + Care Team Providers + +------+ + | Care Home Sales Consultant Name | Role | Phone [...] | | | Nephrology | | Jonathan Gallagehr, | [address] | | | | | | MD [address] | [address] | | | | | | [address] | [facility] | | | | | | Hospital | Rd Mailcode: | | | | | | [address] | [facility] | | | | | | [address] | [place] | | | | | | [place], | [place], [place] | | | | | | [place] | [address] | | | | | | [address] | Phone: | | | | | | Phone: | [phone] | | | | | | [phone] | | | | | | | Fax: | | | | | | | [phone] | | +--------+--------+ + + + + Encounter Details +--------+---------+ + + + | Date | Type | Department | Care Team | Description | +--------+---------+ + + + | 08/17/ | Office | Specialty Clinics | Sudhakar Joy | Anemia of chronic | | 2016 | Visit | at [facility] [address] MD [address] | kidney failure, | | | | [address] | [address] | stage 5 (HCC) | | | | Mailcode: [facility] | [place], [place] | (Primary Dx); 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 She has moved into a new [facility]. She has collected enough money to [...] [address] Mail code [facility] [place], [place] [address] documented in this encounter Plan of Treatment +--------+ + + + + | Date | Type | Specialty | Care Team | Description | +--------+ + + + + | 05/04/ | Hospital | Adult Acute Care | El Starr MD | | | 2022 | Encounter | | [address] | | | | | | [place], [place] | | | | | | [address] | | | | | | [phone] | | | | | | | [...]
--- OUTSIDE RECORDS SUMMARY | ~2018-12-09 | XMS | Encounter Summary ---
Demographics + + + | Address | [address] | | | [place] [address] | + + + | Home Phone [...] | | | | | [place] [address] | | + + + + + | Thania Mallory | ECON | [address] | | | | | [place] [address] | | + + + + + | Deidra Weldon | ECON | [address] | | | | | [place] | | | | | [address] | | + + + + + Care Team Providers + +------+ + | Care Software Development Advisor Name | Role | Phone [...] | | Nephrology at | MD Emanuel [address] | | | | | Alexander | [address] | | | | | [facility] | [place], [place] | | | | | [address] | [address] | | | | | Caro Chan Mailcode: | [phone] | | | | | [address] | | | | | | [place], [place] | | | | | | [address] | | | | | | [phone] | | | +--------+ + + + [...] Denise | | | | | | [place], [place] | | | | | | [address] | | | | | | [phone] | | | | | | | | +--------+ + + + + documented as of this encounter Visit Diagnoses Not on filedocumented in this encounter"
--- OUTSIDE RECORDS SUMMARY | ~2018-12-09 | XMS | Clinical Summary ---
Demographics + + + | Address | [address] | | | [place] [address] | + + + | Home Phone [...] | Author | [facility] [employer] (Historical as of | | | 10-20-18) | + + + | Organization | [facility] [employer] (Historical as of | | | 10-20-18) [...] Team Providers + +------+ + | Care Assurance Manager Insurance Name | Role | Phone | [...] Guzmán, | | 2018 | | | SAILMAKER | | +--------+ + + + + [...] Rosenthal | | | | | | [place] [address] | | | | | | [phone] | | | | | | | [...] | Left: | SYNOVIS | | | [id number] | | 0.8x8cm - [id number]: | | Arm | | | | [...] | | | COVIDIEN | | | [id number] | | 23cmExplanted: Qty: 1 on | | | | | | [id number] / | | 04/08/2014 | | | | | | | | | | | | | | /[id number] | | | | | | | [...] | + +--------+ + + + | [facility] CARD PANEL W/O | STAT | 10/17/2018 [...] 9.2 | 8.5 - 10.5 mg/dL | [facility] | | | | | [...] - [place], | | | | | [place] [address] | | | + + + + + + + | Specimen | + + | Blood | + + + + + + + | Performing | Address | City/State/Zipcode | Phone Number | | Organization | | | | + + + + + | [facility] | [address] | [place] [address] | [phone] | | LABORATORY | [address]vd[address] | | [...] OR EXPIRATION ONLY CLINICAL INFORMATION: Post | [facility] | | thoracentesis. COMPARISON: US THORACENTESIS WITH IMAGING GUIDANCE | RADIOLOGY | | (10/18/2018); XR CHEST 1 VIEW (10/17/2018); CHEST TWO VIEWS 17419 | | | (10/17/2018); FINDINGS: Compared to [...] VIEW | | (10/17/2018); CHEST TWO VIEWS 22737 (10/17/2018); | | FINDINGS: | | Compared [...] + + + + + | [facility] | [address] | [place] [address] | | + + + + + [...] pleural space is punctured with an 5 English Restalo | | | catheter. Fluid is aspirated [...] pleural space is punctured with an 5 English Yueh | | [employer] Pvtesis catheter. Fluid is aspirated without complication. The [...] [facility] | [address] | [place] [address] | | + + + + + [...] + + + + | Calculated P York | 46 | degrees | [facility] | + + + + + | Calculated R York | 127 | degrees | [facility] | + + + + + | Calculated T York | 94 | degrees | [facility] | + + + + + | Diagnosis | Normal sinus rhythmRight | | [facility] | | | axis | [...] + + + | [facility] | [address] | [place] [address] | | + + + + + [...] performed | | | | | at [facility], [address] | | | | | [address] [facility], | | | | | [place] [address] | | | | |Testing performed at [facility], [address] [facility], [place] [address] | | | | | | | | + + + + + + + | Specimen | + + | Blood | + + + + + + + | Performing | Address | City/State/Zipcode | Phone Number | | Organization | | | | + + + + + | [facility] | [address] [place] [address] | [place] [address] | [phone] | | LABORATORY | Blvd. | | | + + + + + Magnesium (10/18/2018 5:44 AM) + + + + + | Component | Value | Ref Range | Performed At | + + + + + | MAGNESIUM | 2.4Comment: Testing | 1.7 - 2.4 mg/dL | [facility] | | | performed at [facility] [address] | | LABORATORY | | | [facility] [place], | | | | | [place] [address] | | | + + + + + + + | Specimen | + + | Blood | + + + + + + + | Performing | Address | City/State/Zipcode | Phone Number | | Organization | | | | + + + + + | [facility] | [address] | [place] [address] | [phone] | | LABORATORY | Blvd. | | [...] 0.8 | 0.1 - 1.5 mg/dL | [facility] | | | | | LABORATORY | + + + + + | ALK PHOS | 89 | 35 - 115 U/L | [facility] | | | | | LABORATORY | + + + + + | AST | 28 | 10 - 45 U/L | [facility] | | | | | LABORATORY | + + + + + | ALT | 36 | 10 - 65 U/L | [facility] | | | | | LABORATORY | + + + + + | EGFR | 5 (L)Comment: GFR <60: | >60 mL/min/1.73m2 | [facility] | | | CHRONIC KIDNEY DISEASE, | [...] [address] | | | | [address] [place], | | | | | [place] [address] | | | + + + + + + + | Specimen | + + | Blood | + + + + + + + | Performing | Address | City/State/Zipcode | Phone Number | | Organization | | | | + + + + + | [facility] | [address] | [place] [address] | [phone] | | LABORATORY | [address] | | [...] 0.04 | 0.00 - 0.04 ng/mL | [facility] | | | ng/mL or [...] performed at | | | | | [facility];[address] [place] [address] | | | | | Blvd;[place] [address] | | | + + + + + + + | Specimen | + + | Blood | + + + + + + + | Performing | Address | City/State/Zipcode | Phone Number | | Organization | | | | + + + + + | [facility] | [address] | [place] [address] | | + + + + + ANYA (10/17/2018 6:05 PM)Only the most recent of 2 results within the time period is includ ed. + + + + + | Component | Value | Ref Range | Performed At | + + + + + | CPK | 443 (H)Comment: Testing | 30 - 240 U/L | [facility] | | | performed at [facility];[address] | | | | | [address];[place] | | | | | [address] | | | + + + + + + + | Specimen | + + | Blood | + + + + + + + | Performing | Address | City/State/Zipcode | Phone Number | | Organization | | | | + + + + + | [facility] | [address] | [place] [address] | | + + + + + Protime-INR (10/17/2018 8:10 AM) + + + + + | Component | Value | Ref Range | Performed At | + + + + + | INR | 1.2Comment: REFERENCE | | [facility] | | | RANGE:0.9 - [...] [facility] [place];[address] | | | | | [address];[place], [place] | | | | | [address] | | | + + + + + + + | Specimen | + + | Blood | + + + + + + + | Performing | Address | City/State/Zipcode | Phone Number | | Organization | | | | + + + + + | [facility] | [address] | [place] [address] | | + + + + + [...] + + + + + | [facility] | [address] | [place] [address] | | + + + + + [...] + + + + | Calculated P York | 33 | degrees | [facility] | + + + + + | Calculated R York | -22 | degrees | [facility] | + + + + + | Calculated T York | 92 | degrees | [facility] | + + + + + | Diagnosis | Sinus | | [facility] | | | tachycardiaNonspecific T | [...] | | | | | ONLY, -COMPUTER (172), | | | | | newspaper or periodical editor Daniela Esquivel | | | | | (18) on 10/17/2018 | | | | | 9:07:21 AM | | | + + + + + + + + + + | Performing | Address | City/State/Zipcode | Phone Number | | Organization | | | | + + + + + | [facility] | [address] | [place] [address] | | + + + + + Cardiac Panel (10/17/2018 3:49 AM) + + + + + | Component | Value | Ref Range | Performed At | + + + + + | WBC | 6.63 | 3.80 - 11.00 K/uL | [facility] | + + + + + | RBC | 3.07 (L) | 3.70 - 5.10 M/uL | [facility] | + + + + + | HGB | 10.9 (L) | 11.3 - 15.5 g/dL | [facility] | + + + + + [...] (H) | 37 - 53 fl | [facility] | + + + + + | PLT | 158 | 150 - 400 K/uL | [facility] | + + + + + | MPV | 10.2 | fl | [facility] | + + + + + | DIFF TYPE | AUTOMATED | | [facility] | + + + + + | NEUTROPHILS | 70.67 | % | [facility] | + + + + + [...] SLT | 3.5 - 4.9 mmol/L | [facility] | | | HEMOLYSIS | [...] 8.9 | 8.5 - 10.5 mg/dL | [facility] | + + + + + | TOTAL PROTEIN | 6.5 | 6.3 - 8.2 g/dL | [facility] | + + + + + | Albumin | 4.0 | 3.6 - 5.0 g/dL | [facility] | + + + + + | GLOBULIN | 2.5 | 1.3 - 4.9 g/dL | [facility] | + + + + + | A/G | 1.6 | 1.0 - 2.4 | [facility] | + + + + + | TBIL | 0.6 | 0.1 - 1.5 mg/dL | [facility] | + + + + + | ALK PHOS | 85 | 35 - 115 U/L | [facility] | + + + + + | AST | 40 | 10 - 45 U/L | [facility] | + + + + + | ALT | 31 | 10 - 65 U/L | [facility] | + + + + + | EGFR | 3 (L)Comment: GFR <60: | >60 mL/min/1.73m2 | [facility] | | | CHRONIC KIDNEY [...] the | | | | | [facility]D [facility] traceable | | | | | equation. | | | + + + + + | CPK | 690 (H)Comment: SLT | 30 - 240 U/L | [facility] | | | HEMOLYSIS | | | + + + + + | INR | 1.2Comment: REFERENCE | | [facility] | | | RANGE:0.9 - [...] 23 | 23 - 32 seconds | [facility] | + + + + + | MMB | 17.8 (H) | 0.5 - 3.6 ng/mL | [facility] | + + + + + | CK-MB Index | UNABLE TO | | [facility] | | | CALCULATEComment: | | | | | Testing performed at | | | | | [facility];[address] [place] [address] | | | | | Blvd;[place] [address] | | | + + + + + + + + + + | Performing | Address | City/State/Zipcode | Phone Number | | Organization | | | | + + + + + | [facility] | [address] | [place] [address] | | + + + + + Brain natriuretic peptide (10/17/2018 3:49 AM) + + + + + | Component | Value | Ref Range | Performed At | + + + + + | BRAIN NATRIURETIC | 1,151.26 (H)Comment: | 0 - 100 pg/mL | [facility] | | PEPTIDE | Testing performed at | | | | | [facility];[address] | | | | | [address];[place] [address] | | | + + + + + + + + + + | Performing | Address | City/State/Zipcode | Phone Number | | Organization | | | | + + + + + | [facility] | [address] | [place] [address] | | + + + + + ED INFORMATION EXCHANGE (10/17/2018 1:10 AM) + + + | Narrative | Performed At | + + + | [id number]:SHONDA [id number] Criteria Met Care | ED | | [...] | | Medical/Surgical 05/28/18 12:[address] [facility] | | | PATIENT HAS AN APT WITH PCP DR NICHOLSON ON 09/11/18. 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 If patient is seen in | [...] | | mo.) Facility Visits Low Ac[facility] 4 0 | | | [facility] 12 0 Total 16 0 Note: Visits [...] | or Chief Complaint Oct 17, 2018 [facility] [place]. [place] | | | [facility] [place] | | | Emergency Chief Complaint: EXCESS FLUID Aug 20, 2018 [facility]. | | | [place]. [place] Emergency Dependence on renal dialysis | | | Chronic kidney disease, unspecified Allergy status to | | | other drugs, medicaments and biological substances status | | | Chronic pulmonary edema Other chain repairer (current) drug therapy | | | Allergy status to narcotic agent status Dyspnea, | | | unspecified Radiographic dye allergy status Aug 13, 2018 | | | [facility] [place] [place] Emergency Allergy status to | | | other drugs, medicaments and biological substances status | | | Pleural effusion, not elsewhere classified End stage renal | | | disease Allergy status to narcotic agent status | | | Hyperkalemia Other specified abnormalities of plasma proteins | | | Other long-term (current) 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 Radiographic dye | | | allergy status Dependence on renal dialysis Chest pain, | | | unspecified Aug 13, 2018 [facility] | | | Emergency July 18, 2018 [facility] | | | Emergency Cough Pneumonia Hypoxemia | | | Pleural effusion, not elsewhere classified Fever, unspecified | | | Personal history of other diseases of urinary system May | | | 2018 [facility] [place] [place] Emergency Personal | | [...] unspecified Heart | | | failure, unspecified plaster tender (current) use of opiate | | | analgesic Allergy status to other drugs, medicaments and | | | biological substances status Radiographic dye allergy status | | | Other chain repairer (current) drug therapy Jun 12, 2018 [facility] | | | [place]. [place] Emergency Shortness of breath | | | Fluid overload, unspecified Hyperkalemia Radiographic | | | dye allergy status Allergy status to narcotic agent status | | | Other chain repairer (current) drug therapy Allergy status to | [...] | Personal history of nicotine dependence Other long-term | | | (current) drug therapy plaster tender (current) use of opiate | | | analgesic Recent Inpatient Visit Summary Date Facility | | | [facility] Type Diagnoses or Chief Complaint Aug 20, 2018 [facility] | | | [facility] General Medicine Pleural Effusion | | | Chronic pulmonary edema July 18, 2018 [facility] | | | [facility] General Medicine Hypoxemia Personal history | | | of other diseases of urinary system Fever, unspecified | | | Pleural effusion, not elsewhere classified End stage renal | | | disease Dependence on renal dialysis Anemia in chronic | | | kidney disease Pulmonary hypertension, unspecified | | | Chronic right heart failure May 26, 2018 [facility] | | | [facility] General Medicine Acute respiratory distress | | [...] 28, | | | 2018 - Current [employer] Portal This patient has registered | | | at the [facility] Emergency Department For more | | | information visit: | | | [email or web address] | | | [email or web address] PLEASE NOTE: 1. [...] | | completeness of information provided. 2018 [employer] | | | [employer]. - [email or web address] | | + + + + + | Procedure Note | + + | Interface, Lab - 10/17/2018 1:12 AM PDT Formatting of this note may be different | | from the original.[id number]:00DARA [id number] Met Care Guidelines 10 in | | 12 2 in 2Security and SafetyNo recent Security Events currently on fileED Care | | GuidelinesThere are currently no ED Care Guidelines for this patient. Please check your | | facility's medical records system.Care HistoryMedical/Surgical05/28/18 12:00 AM [facility]. | | [facility] PATIENT HAS AN APT WITH PCP DR NICHOLSON ON 09/11/18. PATIENT | | ELECTRONICS COMPUTER MECHANIC- DR [phone] Patient is currently established with | [facility]. If patient is seen in the ED during business hours. Please contact [facility] | | at [facility].Care Recommendation:This patient has had 5 or [...] Visit Count (12 mo.)Facility Visits [facility] | | Center [address] [facility] 12 0 Total 16 0 Note: Visits [...] Chief | | Complaint Oct 17, 2018 [facility] [place]. [place] Emergency Oct 16, 2018 [facility]. | | [place]. [place] Emergency Chief Complaint: EXCESS FLUID Aug 20, 2018 [facility]. | | [place] Emergency Dependence on renal dialysis Chronic kidney | | disease, unspecified Allergy status to other drugs, medicaments and biological | | substances status Chronic pulmonary edema Other chain repairer (current) drug therapy | | Allergy status to narcotic agent status Dyspnea, unspecified Radiographic dye | | allergy status Aug 13, 2018 [facility] [place] Emergency Allergy status to [...] dialysis Chest pain, unspecified [facility] | | Emergency July 18, 2018 [facility] Emergency Cough Pneumonia | | Hypoxemia Pleural [...] overload, unspecified | | Heart failure, unspecified detention (current) use of opiate analgesic Allergy | | status to other drugs, medicaments and biological substances status Radiographic dye | | allergy status Other long-term (current) 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 Jun 12, 2018 [facility] | | [place]. [place]. [place] Emergency Shortness of breath Fluid overload, unspecified | | Hyperkalemia Radiographic dye allergy status Allergy status to narcotic agent | | status Other chain repairer (current) drug therapy Allergy status to other [...] long | | term (current) 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 plaster tender (current) use of opiate analgesic Recent | | Inpatient Visit SummaryDate Facility City State Type Diagnoses or Chief Complaint Aug | | [facility] [place] [facility] Pleural Effusion Chronic | | pulmonary edema July 18, 2018 [facility] General Medicine | | Hypoxemia Personal history of other diseases of urinary system Fever, unspecified | | Pleural effusion, not elsewhere classified End stage renal disease Dependence | | on renal dialysis Anemia in chronic kidney disease Pulmonary hypertension, | | unspecified Chronic right heart failure May 26, 2018 [facility] | | General Medicine Acute respiratory distress [...] Internal Medicine May 28, 2018 - Current [employer] DX[employer]iEnjoyor patient | | has registered at the [facility] Emergency Department For more | | information visit: | | [email or web address] PLEASE | | NOTE: 1. Any care [...] or completeness of information | | provided.2019 [employer]. - www.[email or web address] | | Personal history of other diseases of urinary system | | | |July 18, 2018 [facility] [place] Emergency | | Personal history of nicotine dependence | | Other specified respiratory disorders | | Cough | | Radiographic dye allergy status | | Allergy status to narcotic agent status | | Chronic kidney disease, unspecified | | Allergy status to other drugs, medicaments and biological substances status | | | |Jun 19, 2018 [facility] [place] [place] Emergency | | Other chest pain | | End stage renal disease | | Dependence on renal dialysis | | Personal history of nicotine dependence | | Fluid overload, unspecified | | Heart failure, unspecified | | plaster tender (current) use of opiate analgesic | | Allergy status to other drugs, medicaments and biological substances status | | Radiographic dye allergy status | | Other chain repairer (current) drug therapy | | | |[facility] [place] [place] [facility] | | Shortness of breath | | Fluid overload, unspecified | | Hyperkalemia | | Radiographic dye allergy status | | Allergy status to narcotic agent status | | Other chain repairer (current) drug therapy | | Allergy status to other drugs, medicaments and biological substances status | | Unspecified asthma, uncomplicated | | Dependence on renal dialysis | | Chronic kidney disease, unspecified | | | |Jun 11[facility] 2018 [facility] [place] [place] [place] [facility] | | Chronic pulmonary edema | | Shortness of breath | | Radiographic dye allergy status | | Personal history of nicotine dependence | | Other chain repairer (current) drug therapy | | plaster tender (current) use of opiate analgesic | | | | | | | |Recent Inpatient Visit Summary | |Date Facility City State Type Diagnoses or Chief Complaint | |Aug 20, 2018 [facility] General Medicine | | Pleural Effusion | | Chronic pulmonary edema | | | |July 18, 2018 [facility] General Medicine | | Hypoxemia | | Personal history of other diseases of urinary system | | Fever, unspecified | | Pleural effusion, not elsewhere classified | | End stage renal disease | | Dependence on renal dialysis | | Anemia in chronic kidney disease | | Pulmonary hypertension, unspecified | | Chronic right heart failure | | | |May 26, 2018 [facility] General Medicine | | Acute respiratory distress [...] | |This patient has registered at the [facility] Emergency Department | |For more information visit: [email or web address] | |PLEASE NOTE: | | 1. Any [...] of information provided. | | | |2019 [employer]. 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
--- OUTSIDE RECORDS SUMMARY | ~2018-12-09 | XMS | Encounter Summary ---
Demographics + + + | Address | [address] | | | [place] [address] | + + + | Home Phone [...] | | | | | [place] [address] | | + + + + + | Thania Mallory | ECON | [address] | | | | | [place] [address] | | + + + + + | Deidra Weldon | ECON | [address] | | | | | [place] | | | | | [address] | | + + + + + Care Team Providers + +------+ + | Care Customs Examiner Name | Role | Phone | [...] Hoffmann | | | | | [facility]NAL[facility] | [facility] | | | | | [address] [place], [place] | [place], [place] | | | | | [address] | [address] | | | | | [phone] | | | +--------+ + + + [...] Denise | | | | | | [place], [place] | | | | | | [address] | | | | | | [phone] | | | | | | | | +--------+ + + + + documented as of this encounter Visit Diagnoses Not on filedocumented in this encounter"
--- OUTSIDE RECORDS SUMMARY | ~2018-12-09 | XMS | Encounter Summary ---
Demographics + + + | Address | [address] | | | [place] [address] | + + + | Home Phone [...] | | | | | [place] [address] | | + + + + + | Thania Mallory | ECON | [address] | | | | | [place] [address] | | + + + + + | Deidra Weldon | ECON | [address] | | | | | [place] | | | | | [address] | | + + + + + Care Team Providers + +------+ + | Care Field Operations Supervisor Name | Role | Phone [...] | 2013 | | [address] | [place], [place] | Update | | | | [address] [facility] [address] | [address] | | | | | [address] [place], [place] | | | | | | [address] | | | | | | [phone] | | | +--------+ + + + [...] Denise | | | | | | [place], [place] | | | | | | [address] | | | | | | [phone] | | | | | | | | +--------+ + + + + documented as of this encounter Visit Diagnoses Not on filedocumented in this encounter"
--- OUTSIDE RECORDS SUMMARY | ~2018-12-09 | XMS | Encounter Summary ---
Demographics + + + | Address | [address] | | | [place] [address] | + + + | Home Phone [...] | | | | | [place] [address] | | + + + + + | Thania Mallory | ECON | [address] | | | | | [place] [address] | | + + + + + | Deidra Weldon | ECON | [address] | | | | | [place] | | | | | [address] | | + + + + + Care Team Providers + +------+ + | Care Proof Machine Operator Name | Role | Phone [...] Requested (Drug | | | | [facility] | [facility] | screens) | | | | Rd [place], [place] | [facility] [place] | | | | | [address] | [address] | | | | | [phone] | | | +--------+ + + + [...] Denise | | | | | | [place] | | | | | | [address] | | | | | | [phone] | | | | | | | | +--------+ + + + + documented as of this encounter Visit Diagnoses Not on filedocumented in this encounter"
--- OUTSIDE RECORDS SUMMARY | ~2018-12-09 | XMS | Encounter Summary ---
Demographics + + + | Address | [address] | | | [place] [address] | + + + | Home Phone [...] | | | | | [place] [address] | | + + + + + | Thania Mallory | ECON | [address] | | | | | [place] [address] | | + + + + + | Deidra Weldon | ECON | [address] | | | | | [place] | | | | | [address] | | + + + + + Care Team Providers + +------+ + | Care Consulting Database Administrator Name | Role | Phone | [...] | lab/Provider | | | | [place], [place] | [place], [place] | updated) | | | | [address] | [address] | | | | | [phone] | [phone] | | | | | | | [...] Denise | | | | | | [place], [place] | | | | | | [address] | | | | | | [phone] | | | | | | | | +--------+ + + + + documented as of this encounter Visit Diagnoses Not on filedocumented in this encounter"
--- OUTSIDE RECORDS SUMMARY | ~2018-12-09 | XMS | Clinical Summary ---
Demographics + + + | Address | [address] | | | [place] [address] | + + + | Home Phone [...] + | Author | [facility] | | | and Josephana | + + + | Organization | [facility] | | | [...] Providers + +------+ + | Care Transit Bus Driver Name | Role | [...] | | renal disease) ([facility]) | protocol | | | | [...] Overview: Active Kidney Transplant Waiting List at [facility]: | | 03/07/2014 | + + [...] | | Treated by Dr. Joy, pediatric occupational therapist. | + + + +---+ | ESRD [...] declot | | but reclotted). 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 | | | | | | ([facility]); ESRD on | | | | | | hemodialysis ([facility]); | | | | | | Moderate to severe | | | | | | pulmonary | | | | | | hypertension ([facility]); | | | | | | [...] | | | | function ([facility]); | | | | | | Non-compliance; | | | | | | Troponin I above | | | | | | reference range; | | | | | | Anemia in ESRD | | | | | | (end-stage renal | | | | | | disease) ([facility]); At | | | | | [...] | | | Gerber Pearson MD | ([facility]); Dilated | | 10/22/ | | | | cardiomyopathy | | 2019 | | | | ([facility]); | | | | | | Non-cardiogenic | | | | | | pulmonary edema; | | | | | | Anemia in ESRD | | | | | | (end-stage renal | | | | | | disease) ([facility]); | | | | | | [...] | | | ([facility]); At high risk | | | [...] | 2019 | | | | dialysis ([facility]); End | | | | | | stage renal disease | | | | | | ([facility]) | +--------+ + + + + [...] [place] | | | | | | [place] [address] | | | | | | [phone] | | | | | | | [...] Left: | SYNOVIS - | | | [id number] | | 0.8x8cm - [id number]: | | Arm | SYNO | | [...] | | | COVIDIEN | | | [id number] | | | | | -MATT 867 - | | | 3404 / | | | | | COVI | | | | | | | | | | | /11902 | | | | | | | [...] | Billie Gupta MD 11/09/2018 9:34 [facility] | | | [facility] Hemo-Dialysis Procedure note Pt is seen [...] | | . 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 House[employer]ing 240 | | | Constitutional: pt appears [...] | | | | performed at [facility] | | | | | | [address] [facility];[place], [place] | | | | | | [address] | | | | + + + + + + + + | Specimen | + + | Blood | + + + + + + + | Performing | Address | City/State/Zipcode | Phone Number | | Organization | | | | + + + + + | [facility] | [address] | [place] [address] | [phone] | + + + + + CBC with Differential (11/09/2018 4:14 PDT)Only the most recent of 2 results within the nj period is included. + + + + [...] LABORATORY | | | | performed at [facility], [address] | | | | | | [address], | | | | | | [place] [address] | | | | | | | | | | + + + + + + + + | Specimen | + + | Blood | + + + + + + + | Performing | Address | City/State/Zipcode | Phone Number | | Organization | | | | + + + + + | [facility] | [address] | [place] [address] | [phone] | + + + + + Phosphorus (11/09/2018 4:14 PDT) + + + + + + | Component | Value | Ref Range | Performed | Pathologist | | | | | At | Signature | + + + + + + | Phosphorus | 7.6 (H)Comment: Testing | 2.3 - 4.8 mg/dL | [facility] | | | | performed at [facility], [address] | | LABORATORY | | | | [address], | | | | | | [place] [address] | | | | + + + + + + + + | Specimen | + + | Blood | + + + + + + + | Performing | Address | City/State/Zipcode | Phone Number | | Organization | | | | + + + + + | [facility] | [address] | [place] [address] | [phone] | + + + + + Comprehensive [...] | | | | performed at [facility], [address] | | | | | | [address], | | | | | | [place] [address] | | | | + + + + + + + + | Specimen | + + | Blood | + + + + + + + | Performing | Address | City/State/Zipcode | Phone Number | | Organization | | | | + + + + + | [facility] | [address] | [place] [address] | [phone] | + + + + + XR [...] is | | | punctured with an 5-Citizen Of [place] thoracentesis catheter. Fluid is aspirated | | [...] the pleural space is punctured with an 5-[place]izen [place] | | thoracentesis catheter. Fluid is aspirated [...] | | LABORATORY | | | | Blvd;[place] [address] | | | | + + + [...] | LABORATORY | | | | [place], [place] | | | | | | [address]Gwqzypg: Testing | | | | | | performed at [facility], [address] | | | | | | [facility], [place], [place] | | | | | | [address] | | | | + + + + + + + + | Specimen | + + | Body Fluid | + + + + + + + | Performing | Address | City/State/Zipcode | Phone Number | | Organization | | | | + + + + + | [facility] | [address] | [place] [address] | [phone] | + + + + + Cell [...] + + + | BF RBC | <97942 | /mm3 | [facility] | | | [...] | | Counted | performed at [facility] | | LABORATORY | | | | [address];[place] | | | | | | [address] | | | | + + + + + + + + | Specimen | + + | Body Fluid | + + + + + + + | Performing | Address | City/State/Zipcode | Phone Number | | Organization | | | | + + + + + | [facility] | [address] | [place] [address] | [phone] | + + + + + Protein, Body Fluid (11/07/2018 15:15 PDT) + + + + + + | Component | Value | Ref Range | Performed | Pathologist | | | | | At | Signature | + + + + + + | Protein, BF | 3.4Comment: This is not | g/dL | [facility] | | | | a equine internship validated | | LABORATORY | | | | sample type for this | | | | | | method. No | | | | | | referenceranges have | | | | | | been established.Testing | | | | | | performed at [facility], [address] | | | | | [address] [facility], | | | | | | [place] [address] | | | | + + + + + + | SOURCE | PLEURAL FLUIDComment: | | [facility] | | | | Testing performed at | | LABORATORY | | | | [facility];[address] | | | | | [address];[place] [address] | | | | + + + + + + + + | Specimen | + + | Body Fluid | + + + + + + + | Performing | Address | City/State/Zipcode | Phone Number | | Organization | | | | + + + + + | [facility] | [address] | [place] [address] | [phone] | + + + + + Lactate dehydrogenase, body fluid (11/07/2018 15:15 PDT) + + + + + + | Component | Value | Ref Range | Performed | Pathologist | | | | | At | Signature | + + + + + + | LDH, BODY | 102Comment: This is not | U/L | [facility] | | | FLUID | a equine internship validated | | LABORATORY | | | | sample type for this | | | | | | method. No | | | | | | referenceranges have | | | | | | been established.Testing | | | | | | performed at [facility], [address] | | | | | [address] [facility], | | | | | | [place] [address] | | | | + + + + + + + + | Specimen | + + | Body Fluid | + + + + + + + | Performing | Address | City/State/Zipcode | Phone Number | | Organization | | | | + + + + + | [facility] | [address] | [place] [address] | [phone] | + + + + + Glucose, Body Fluid (11/07/2018 15:15 PDT) + + + + + + | Component | Value | Ref Range | Performed | Pathologist | | | | | At | Signature | + + + + + + | Glucose | 96Comment: This is not a | mg/dL | [facility] | | | Fluid | equine internship validated | | LABORATORY | | | | sample type for this | | | | | | method. No | | | | | | referenceranges have | | | | | | been established.Testing | | | | | | performed at [facility], [address] | | | | | [address], | | | | | | [place] [address] | | | | + + + + + + | SOURCE | PLEURAL FLUIDComment: | | [facility] | | | | Testing performed at | | LABORATORY | | | | [facility];[address] | | | | | | [address];[place] [address] | | | | + + + + + + + + | Specimen | + + | Body Fluid | + + + + + + + | Performing | Address | City/State/Zipcode | Phone Number | | Organization | | | | + + + + + | [facility] | [address] | [place] [address] | [phone] | + + + + + Amylase, Body Fluid (11/07/2018 15:15 PDT) + + + + + + | Component | Value | Ref Range | Performed | Pathologist | | | | | At | Signature | + + + + + + | AMYLASE | 46Comment: This is not a | U/L | [facility] | | | FLUID | equine internship validated | | LABORATORY | | | | sample type for this | | | | | | method. No | | | | | | referenceranges have | | | | | | been established.Testing | | | | | | performed at [facility], [address] | | | | | [address], | | | | | | [place] [address] | | | | + + + + + + + + | Specimen | + + | Body Fluid | + + + + + + + | Performing | Address | City/State/Zipcode | Phone Number | | Organization | | | | + + + + + | [facility] | [address] | [place] [address] | [phone] | + + + + + Albumin, Body Fluid (11/07/2018 15:15 PDT) + + + + + + | Component | Value | Ref Range | Performed | Pathologist | | | | | At | Signature | + + + + + + | Albumin, | 2.0Comment: This is not | g/dL | [facility] | | | Fluid | a equine internship validated | | LABORATORY | | | | sample type for this | | | | | | method. No | | | | | | referenceranges have | | | | | | been established.Testing | | | | | | performed at [facility], [address] | | | | | | [address] [facility] [facility] [facility], | | | | | | [place] [address] | | | | + + + + + + + + | Specimen | + + | Body Fluid | + + + + + + + | Performing | Address | City/State/Zipcode | Phone Number | | Organization | | | | + + + + + | [facility] | [address] | [place] [address] | [phone] | + + + + + Medical Cytology (11/07/2018 15:15 PDT) + + | Specimen | + + | Body Fluid | + + + + + | Narrative | Performed At | + + + | ORDERING | [place] [facility] | | PHYSICIAN:Dex ALMEIDA, Darell U [...] | | | preparation was performed by [facility], [address] | | | [place] [address] (Manager Regional Sales: Matt Claudio D.O.; | | | CLIA#: [id number]).Professional interpretation was performed by | | | [facility], [address], | | | [place] [phone] (Manager Regional Sales: Daniel Larson M.D.; | | | CLIA#: [id number]).6 Diagnostician: Enrrique Nichols | | | [facility])CytotechnologistDiagnostician: Daniel Larson | | | MDPathologistElectronically Signed 11/13/2018 | | |DESCRIPTION: | | |The preparations contain mesothelial cells, rare inflammatory cells, and acellular proteina ceous material. Atypical cytologic findings are not encountered. | | | | | |SPECIMEN ADEQUACY: | | |Satisfactory for Evaluation | | | | | |PERFORMING LABORATORY: | | |Technical preparation was performed by [facility], [address] [place] [address] (Manager Regional Sales: Matt Claudio D.O.; CLIA#: [id number]). | | |Professional interpretation was performed by [facility], [facility], [address] [place] [address] (Manager Regional Sales: Daniel Larson M.D.; IA# : [id number]).6 | | | | | |Diagnostician: Enrrique BROOKS([facility]) | | |Managed Services Sales Consultant | | |Diagnostician: Daniel Larson MD [...] | | | | | | [facility];[address] [facility] | | | | | | [facility];[place] [address] | | | | + + + + + + + + | Specimen | + + | Blood | + + + + + + + | Performing | Address | City/State/[facility] | Phone Number | | Organization | | | | + + + + + | [facility] | [address] | [place] [address] | [phone] | + + + + + PTT (11/07/2018 4:03 PDT) + + + + + + | Component | Value | Ref Range | Performed | Pathologist | | | | | At | Signature | + + + + + + | PTT | 27Comment: Testing | 23 - 32 seconds | [facility] | | | | performed at [facility];[address] | | LABORATORY | | | | [address];[place] | | | | | | [address] | | | | + + + + + + + + | Specimen | + + | Blood | + + + + + + + | Performing | Address | City/State/Zipcode | Phone Number | | Organization | | | | + + + + + | [facility] | [address] | [place] [address] | [phone] | + + + + + Platelet Count (11/07/2018 4:03 PDT) + + + + + + | Component | Value | Ref Range | Performed | Pathologist | | | | | At | Signature | + + + + + + | Platelet | 185Comment: Testing | 150 - 400 K/uL | [facility] | | | Count | performed at [facility], [address] | | LABORATORY | | | | [address], | | | | | | [place] [address] | | | | + + + + + + + + | Specimen | + + | Blood | + + + + + + + | Performing | Address | City/State/Zipcode | Phone Number | | Organization | | | | + + + + + | [facility] | [address] | [place] [address] | [phone] | + + + + + Magnesium [...] | | | | performed at [facility];[address] | | LABORATORY | | | | [address];[place], [place] | | | | | | [address] | | | | + + + + + + + + | Specimen | + + | Blood | + + + + + + + | Performing | Address | City/State/Zipcode | Phone Number | | Organization | | | | + + + + + | [facility] | [address] | [place] [address] | [phone] | + + + + + Lactate Dehydrogenase (11/07/2018 4:03 PDT) + + + + + + | Component | Value | Ref Range | Performed | Pathologist | | | | | At | Signature | + + + + + + | LDH TOTAL | 202Comment: Testing | 120 - 246 U/L | [facility] | | | | performed at [facility];[address] | | LABORATORY | | | | [address];[place] | | | | | | [address] | | | | + + + + + + + + | Specimen | + + | Blood | + + + + + + + | Performing | Address | City/State/Zipcode | Phone Number | | Organization | | | | + + + + + | [facility] | [address] | [place] [address] | [phone] | + + + + + ECHO [...] M[facility]HEL | | | | performed at [facility], [address] | | LABORATORY | | | | [address], | | | | | | [place] [address] | | | | + + + + + + + + | Specimen | + + | Blood | + + + + + + + | Performing | Address | City/State/Zipcode | Phone Number | | Organization | | | | + + + + + | [facility] | [address] | [place] [address] | [phone] | + + + + + Basic [...] | | | | performed at [facility], [address] | | | | | | [address] [facility], | | | | | | [place] [address] | | | | + + + + + + + + | Specimen | + + | Blood | + + + + + + + | Performing | Address | City/State/Zipcode | Phone Number | | Organization | | | | + + + + + | [facility] | [address] | [place] [address] | [phone] | + + + + + XR [...] CHEST 1 VIEW (10/17/2018); CHEST TWO VIEWS [id number] | | | (10/17/2018); FINDINGS: Compared to [...] VIEW | | (10/17/2018); CHEST TWO VIEWS 88440 (10/17/2018); | | FINDINGS: | | Compared [...] | | | | | at [facility], [address] | | | | | [facility], | | | | | | [place] [address] | | | | | |Testing performed at [facility], [address] [facility], [place] [address] | | | | | | | [...] | | | | performed at [facility];[address] | | LAB | | | | [facility];[place], [place] | | | | | | [address] | | | | + + + [...] | | | | | | [facility];[address] [place] [address] | | | | | | kelly;[place] [address] | | | | + + + [...] | LAB | | | | [facility];[address] [facility] | | | | | | [address];[place] [address] | | | | + + + [...] +--------+ +---------+--------+ | MEDICARE | MEDICA | [id number] | 05/05/19 | [phone] | | Medica | | | RE | | 13-Pre | 5 | | re | | | PART A | | sent | | | | | | AND B | | | | | | + +--------+ +--------+ +---------+--------+ | MEDICARE | MEDICA | [id number] | 05/05/19 | [phone] | | Medica | | | RE | | 13-Pre | 5 | | re | | | PART A | | sent | | | | | | AND B | | | | | | + +--------+ +--------+ +---------+--------+ | [employer]AN | MODA | [id number] | | [phone] | | Medica | | MEDICAID HMO | HEALTH | | 019-Pr | 1 | | id | | | MDCD | | esent | | | | | | [place] | | | | | | + +--------+ +--------+ +---------+--------+ | [employer] | MODA | [id number] | | [phone] | | Medica | | MEDICAID HMO [...] [place] | | | 2 (Home) | [address] | + +--------+ +--------+ + + | Dara Louise | Person | Self | [birth year] | [address] | | | al/Fam | | 1994 | [phone] | [address] [place], [place] | | | [place] | | | 2 (Home) | [address] | + +--------+ +--------+ + + | Cory Louise | Person | Father | [birth year] | [address] | | | al/Fam | | 1971 | [phone] | [place] [address] | | | [place] | | | 9 (Home) | | + +--------+ +--------+ + + Advance Directives Patient has advance care planning documents, and code status on file. For more information, please contact:[facility] and [facility] [place] [address] + + + + + | Code [...]
--- OUTSIDE RECORDS SUMMARY | ~2018-12-09 | XMS | Encounter Summary ---
Demographics + + + | Address | [address] | | | [place] [address] | + + + | Home Phone [...] | | | | | [place] [address] | | + + + + + | Thania Mallory | ECON | [address] | | | | | [place] [address] | | + + + + + | Deidra Weldon | ECON | [address] | | | | | [place] | | | | | [address] | | + + + + + Care Team Providers + +------+ + | Care Java Programmer Analyst Name | Role | Phone [...] | Requested | | | | [address] | [facility] | | | | | Rd [place], [place] | [place], [place] | | | | | [address] | [address] | | | | | [phone] | | | +--------+ + + + [...] [place] | | | | | | [address] | | | | | | [phone] | | | | | | | | +--------+ + + + + documented as of this encounter Visit Diagnoses Not on filedocumented in this encounter"
--- OUTSIDE RECORDS SUMMARY | ~2018-12-09 | XMS | Encounter Summary ---
Demographics + + + | Address | [address] | | | [place] [address] | + + + | Home Phone [...] | | | | | [place] [address] | | + + + + + | Thania Mallory | ECON | [address] | | | | | [place] [address] | | + + + + + | Deidra Weldon | ECON | [address] | | | | | [place] | | | | | [address] | | + + + + + Care Team Providers + +------+ + | Care Step Down Specialist Name | Role | Phone | [...] | | Nephrology at | MD Emanuel [address] | | | | | [address] | [address] | | | | | [facility] | [place], [place] | | | | | [address] | [address] | | | | | Caro Chan Mailcode: | [phone] | | | | | [address] | | | | | | [place], [place] | | | | | | [address] | | | | | | [phone] | | | +--------+ + + + [...] Denise | | | | | | [place], [place] | | | | | | [address] | | | | | | [phone] | | | | | | | | +--------+ + + + + documented as of this encounter Visit Diagnoses Not on filedocumented in this encounter"
--- OUTSIDE RECORDS SUMMARY | ~2018-12-09 | XMS | Encounter Summary ---
Demographics + + + | Address | [address] | | | [place] [address] | + + + | Home Phone [...] | | | | | [place] [address] | | + + + + + | Thania Mallory | ECON | [address] | | | | | [place] [address] | | + + + + + | Deidra Weldon | ECON | [address] | | | | | [place] | | | | | [address] | | + + + + + Care Team Providers + +------+ + | Care Plastic Parts Designer Name | Role | Phone | [...] [address] | | | | [address] [facility] | [facility] [address] | follow-up on | | | | Rd [place], [place] | [place] | [place] | | | | [address] | [address] | care plan) | | | | [phone] | | | +--------+ + + + [...] | | | | | | [place] | | | | | | [address] | | | | | | [phone] | | | | | | | | +--------+ + + + + documented as of this encounter Visit Diagnoses Not on filedocumented in this encounter"
--- OUTSIDE RECORDS SUMMARY | ~2018-12-09 | XMS | Encounter Summary ---
Demographics + + + | Address | [address] | | | [place] [address] | + + + | Home Phone [...] | | | | | [place] [address] | | + + + + + | Thania Mallory | ECON | [address] | | | | | [place] [address] | | + + + + + | Deidra Weldon | ECON | [address] | | | | | [place] | | | | | [address] | | + + + + + Care Team Providers + +------+ + | Care Right Of Way Manager Name | Role | Phone | [...] Shun | | | | | at [facility] | [facility] | | | | | [address] | [place] [address] | | | | | [facility] | | | | | | Mailcode: [id number] [facility] | | | | | | [facility] | | | | | | [facility], | | | | | | [place] [address] | | | | | | [phone] | | | +--------+ + + + [...] Denise | | | | | | [place], [place] | | | | | | [address] | | | | | | [phone] | | | | | | | [...] | e | 11:49 AM | MEDICARE 6904 | procedure are in the | | [...] view image for the detailed interpretation from [employer] results. | CARDIOLOGY | + + + + + | Procedure Note | + + | Interface, Cardiology Results - 12/21/2012 9:38 AM PDT Please click on view image | | for the detailed interpretation from [employer] results. 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
--- OUTSIDE RECORDS SUMMARY | ~2018-12-09 | XMS | Encounter Summary ---
Demographics + + + | Address | [address] | | | [place] [address] | + + + | Home Phone [...] | | | | | [place] [address] | | + + + + + | Thania Mallory | ECON | [address] | | | | | [place] [address] | | + + + + + | Deidra Weldon | ECON | [address] | | | | | [place] | | | | | [address] | | + + + + + Care Team Providers + +------+ + | Care Sales Department Clerk Name | Role | Phone | [...] | ANNALISA Hoffmann [facility] | [facility] [address] | clinic visit - | | | | Rd [place], [place] | [place], [place] | psychosocial | | | | [address] | [address] | readiness update) | | | | [phone] | | | +--------+ + + + [...] Denise | | | | | | [place], [place] | | | | | | [address] | | | | | | [phone] | | | | | | | | +--------+ + + + + documented as of this encounter Visit Diagnoses Not on filedocumented in this encounter"
--- OUTSIDE RECORDS SUMMARY | ~2018-12-09 | XMS | Encounter Summary ---
Demographics + + + | Address | [address] | | | [place] [address] | + + + | Home Phone [...] | | | | | [place] [address] | | + + + + + | Thania Mallory | ECON | [address] | | | | | [place] [address] | | + + + + + | Deidra Weldon | ECON | [address] | | | | | [place] | | | | | [address] | | + + + + + Care Team Providers + +------+ + | Care Truck Spotter Name | Role | Phone | [...] | | | | | nlein | [place], [place] | Mailcode: | | | | | purpura) | [address] | DC7S | | | | | nephritis | Phone: | [place]her | | | | | (HCC) | [phone] | [place], [place] | | | | | Hemodialysis | Fax: | [address] | | | | | status | [phone] | Phone: | | | | | (HCC) | | [phone] | | | | | Chronic | | Fax: | | | | | kidney | | [phone] | | | | | disease, | [...] | | 2014 | Encounter | at [facility] [address] | | | | | | [address] | | | | | | Mailcode: DCH8S | | | | | | [place] | | | | | | [place], [place] | | | | | | [address] | | | | | | [phone] | | | +--------+ + + + [...] Denise | | | | | | [place], [place] | | | | | | [address] | | | | | | [phone] | | | | | | | [...] | e | 1:18 PM | MEDICARE 7707 HSP | procedure are in the | [...] 2:35 PM PST Echocardiography Laboratory | | [address] | | [place] [address] | | ; | | [id number] | | | | Transthoracic Echocardiogram Report | | | | | | NAME: DARA WELDON Study Date: 01/20/2015 1:18:29 PM | | Order #: [id number] ACC #: [id number] | | | | | | : [...] on 01/20/2015 at 2:35:17 PM | | Pie Cutter: YARITZA KLINE [facility] | | | | | | cc: | | | | | | Modes utilized | | TTE 97846; Spectral Doppler 19311; Color flow Doppler 07776; | | | | | | | | Final | + + + + + + + | Performing | Address | City/State/Zipcode | Phone Number | | Organization | | | | + + + + + | [facility] | [address] | [place], [place] | | | CARDIOLOGY | [address] | [address] | | + + + + + [...]
--- OUTSIDE RECORDS SUMMARY | ~2018-12-09 | XMS | Encounter Summary ---
Demographics + + + | Address | [address] | | | [place] [address] | + + + | Home Phone [...] | | | | | [place] [address] | | + + + + + | Thania Mallory | ECON | [address] | | | | | [place] [address] | | + + + + + | Deidra Weldon | ECON | [address] | | | | | [place] | | | | | [address] | | + + + + + Care Team Providers + +------+ + | Care Automotive Tire Worker Name | Role | Phone | [...] Coordinators [address] | RN [address] [facility] | | | | | ANNALISA [facility] | [facility] | | | | | Rd [place], [place] | [place], [place] | | | | | [address] | [address] | | | | | [phone] | | | +--------+ + + + [...] Denise | | | | | | [place], [place] | | | | | | [address] | | | | | | [phone] | | | | | | | | +--------+ + + + + documented as of this encounter Visit Diagnoses Not on filedocumented in this encounter"
--- OUTSIDE RECORDS SUMMARY | ~2018-12-09 | XMS | Encounter Summary ---
Demographics + + + | Address | [address] | | | [place] [address] | + + + | Home Phone [...] | | | | | [place] [address] | | + + + + + | Thania Mallory | ECON | [address] | | | | | [place] [address] | | + + + + + | Deidra Weldon | ECON | [address] | | | | | [place] | | | | | [address] | | + + + + + Care Team Providers + +------+ + | Care Eyeglass Lens Cutter Name | Role | Phone | [...] | | | [facility] | [place], [place] | | | | | [address] | [address] | | | | | [place] Mailcode: | [phone] | | | | | [address] | | | | | | [place], [place] | | | | | | [address] | | | | | | [phone] | | | +--------+ + + + [...] | | | | | | [place], [place] | | | | | | [address] | | | | | | [phone] | | | | | | | | +--------+ + + + + documented as of this encounter Visit Diagnoses Not on filedocumented in this encounter"
--- OUTSIDE RECORDS SUMMARY | ~2018-12-09 | XMS | Encounter Summary ---
Demographics + + + | Address | [address] | | | [place] [address] | + + + | Home Phone [...] | | | | | [place] [address] | | + + + + + | Thania Mallory | ECON | [address] | | | | | [place] [address] | | + + + + + | Deidra Weldon | ECON | [address] | | | | | [place] | | | | | [address] | | + + + + + Care Team Providers + +------+ + | Care Jv Baseball Coach Name | Role | Phone | [...] | ) | | | | [facility] | [facility] | | | | | Rd [place], [place] | [place], [place] | | | | | [address] | [address] | | | | | [phone] | | | +--------+ + + + [...] [place] | | | | | | [address] | | | | | | [phone] | | | | | | | | +--------+ + + + + documented as of this encounter Visit Diagnoses Not on filedocumented in this encounter"
--- OUTSIDE RECORDS SUMMARY | ~2018-12-09 | XMS | Encounter Summary ---
Demographics + + + | Address | [address] | | | [place] [address] | + + + | Home Phone [...] | | | | | [place] [address] | | + + + + + | Thania Mallory | ECON | [address] | | | | | [place] [address] | | + + + + + | Deidra Weldon | ECON | [address] | | | | | [place] | | | | | [address] | | + + + + + Care Team Providers + +------+ + | Care Electric Meter Installer Helper Name | Role | Phone [...] Shun | | | | | ANNALISA [facility] | [facility] | | | | | Rd [place], [place] | [place], [place] | | | | | [address] | [address] | | | | | [phone] | | | +--------+ + + + [...] [place] | | | | | | [address] | | | | | | [phone] | | | | | | | | +--------+ + + + + documented as of this encounter Visit Diagnoses Not on filedocumented in this encounter"
--- OUTSIDE RECORDS SUMMARY | ~2018-12-09 | XMS | Encounter Summary ---
Demographics + + + | Address | [address] | | | [place] [address] | + + + | Home Phone [...] | | | | | [place] [address] | | + + + + + | Thania Mallory | ECON | [address] | | | | | [place] [address] | | + + + + + | Deidra Weldon | ECON | [address] | | | | | [place] | | | | | [address] | | + + + + + Care Team Providers + +------+ + | Care Aquacultural Worker Supervisor Name | Role | Phone [...] | | | | Dea Jane | [place], [place] | | | | | [place], [place] | [address] | | | | | [address] | | | | | | [phone] | | | +--------+ + + + [...] Denise | | | | | | [place] | | | | | | [address] | | | | | | [phone] | | | | | | | | +--------+ + + + + documented as of this encounter Visit Diagnoses Not on filedocumented in this encounter"
--- OUTSIDE RECORDS SUMMARY | ~2018-12-09 | XMS | Encounter Summary ---
Demographics + + + | Address | [address] | | | [place] [address] | + + + | Home Phone [...] | | | | | [place] [address] | | + + + + + | Thania Mallory | ECON | [address] | | | | | [place] [address] | | + + + + + | Deidra Weldon | ECON | [address] | | | | | [place] | | | | | [address] | | + + + + + Care Team Providers + +------+ + | Care Wire Twisting Machine Operator Name | Role | Phone [...] (Primary Dx) | | | | [facility] | [place], [place] | | | | | [address] | [address] | | | | | [place] Mailcode: | [phone] | | | | | [address] | | | | | | [place], [place] | | | | | | [address] | | | | | | [phone] | | | +--------+ + + + [...] | | | | | | [place], [place] | | | | | | [address] | | | | | | [phone] | | | | | | | [...] | e | 1:18 PM | MEDICARE 3279 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
--- OUTSIDE RECORDS SUMMARY | ~2018-12-09 | XMS | Encounter Summary ---
Demographics + + + | Address | [address] | | | [place] [address] | + + + | Home Phone [...] | | | | | [place] [address] | | + + + + + | Thania Mallory | ECON | [address] | | | | | [place] [address] | | + + + + + | Deidra Weldon | ECON | [address] | | | | | [place] | | | | | [address] | | + + + + + Care Team Providers + +------+ + | Care Receptionist Nurse Name | Role | Phone | [...] Rd | | | | | [facility] | [place], [place] | | | | | [address] | [address] | | | | | [place] Mailcode: | [phone] | | | | | [address] | | | | | | [place], [place] | | | | | | [address] | | | | | | [phone] | | | +--------+ + + + [...] Denise | | | | | | [place], [place] | | | | | | [address] | | | | | | [phone] | | | | | | | [...] - | | | | | | LWEIS | | + + + + + [...] + + | [facility] - | [address] | [place] | [phone] | | [place] | | | | + + + + + documented in this encounter Visit Diagnoses Not on filedocumented in this encounter"
--- OUTSIDE RECORDS SUMMARY | ~2018-12-09 | XMS | Encounter Summary ---
Demographics + + + | Address | [address] | | | [place] [address] | + + + | Home Phone [...] | | | | | [place] [address] | | + + + + + | Thania Mallory | ECON | [address] | | | | | [place] [address] | | + + + + + | Deidra Weldon | ECON | [address] | | | | | [place] | | | | | [address] | | + + + + + Care Team Providers + +------+ + | Care Seo Manager Name | Role | Phone | [...] | 12/27/ | Documentati | Transplant | Kesli Martinez, | Transplant Form | | 2012 | on | Coordinators [address] | RN [address] | Update | | | | [facility] | [facility] | | | | | Rd [place], [place] | [place], [place] | | | | | [address] | [address] | | | | | [phone] | | | +--------+ + + + [...] | | | | | | [place] | | | | | | [address] | | | | | | [phone] | | | | | | | | +--------+ + + + + documented as of this encounter Visit Diagnoses Not on filedocumented in this encounter"
--- OUTSIDE RECORDS SUMMARY | ~2018-12-09 | XMS | Encounter Summary ---
Demographics + + + | Address | [address] | | | [place] [address] | + + + | Home Phone [...] | | | | | [place] [address] | | + + + + + | Thania Mallory | ECON | [address] | | | | | [place] [address] | | + + + + + | Deidra Weldon | ECON | [address] | | | | | [place] | | | | | [address] | | + + + + + [...] | | | | | [address]NAL[address] Hoffmann [facility] | [place] [address] | | | | | [place], [place] | [place], [place] | | | | | [address] | [address] | | | | | [phone] | [phone] | | | | | | | [...] Denise | | | | | | [place], [place] | | | | | | [address] | | | | | | [phone] | | | | | | | | +--------+ + + + + documented as of this encounter Visit Diagnoses Not on filedocumented in this encounter"
--- OUTSIDE RECORDS SUMMARY | ~2018-12-09 | XMS | Encounter Summary ---
Demographics + + + | Address | [address] | | | [place] [address] | + + + | Home Phone [...] | | | | | [place] [address] | | + + + + + | Thania Mallory | ECON | [address] | | | | | [place] [address] | | + + + + + | Deidra Weldon | ECON | [address] | | | | | [place] | | | | | [address] | | + + + + + [...] | | | | | Caro [address] [place], | | | | | | [place] [address] | | | +--------+ + + + [...] Denise | | | | | | [place], [place] | | | | | | [address] | | | | | | [phone] | | | | | | | [...] [facility] - | [address] | [place] [address] | | | IMMUNOGENETICS/TRANS | [address] | | | | [facility] | | | | + + + + + documented in this encounter Visit Diagnoses + + | Diagnosis | + + | End stage renal disease (HCC) End stage renal disease | + + documented in this encounter"
--- OUTSIDE RECORDS SUMMARY | ~2018-12-09 | XMS | Encounter Summary ---
Demographics + + + | Address | [address] | | | [place] [address] | + + + | Home Phone [...] | | | | | [place] [address] | | + + + + + | Thania Mallory | ECON | [address] | | | | | [place] [address] | | + + + + + | Deidra Weldon | ECON | [address] | | | | | [place] | | | | | [address] | | + + + + + Care Team Providers + +------+ + | Care Box Inspector Name | Role | Phone | [...] Hoffmann | | | | | [facility] | [facility] | | | | | Rd [place], [place] | [place], [place] | | | | | [address] | [address] | | | | | [phone] | | | +--------+ + + + [...] Denise | | | | | | [place], [place] | | | | | | [address] | | | | | | [phone] | | | | | | | | +--------+ + + + + documented as of this encounter Visit Diagnoses Not on filedocumented in this encounter"
--- OUTSIDE RECORDS SUMMARY | ~2018-12-09 | XMS | Encounter Summary ---
Demographics + + + | Address | [address] | | | [place] [address] | + + + | Home Phone [...] | Author | [facility] (Historical as of | | | 10-20-18) | + + + | Organization | [facility] (Historical as of | | | 10-20-18) [...] Providers + +------+ + | Care Paper Rewinder Name | Role | Phone | + [...] | | 2018 | on Only | [place] [address] | [address] | 2019-[facility] Provider | | | | [address] | [address] [place], [place] | Dialysis Rounding | | | | [place] [address] | [address] | Note) | | | | [phone] | | | +--------+ + + + [...] | 12/18/ | Office | Pulmonology | [address] | | | 2019 | Visit | | Deny Briggs MD [address] | | | | | | [address] | | | | | | [place] [address] | | | | | | [phone] | | | | | | | | +--------+---------+ + + + as of this encounter Visit Diagnoses Not on filein this encounter"
--- OUTSIDE RECORDS SUMMARY | ~2018-12-09 | XMS | Encounter Summary ---
Demographics + + + | Address | [address] | | | [place] [address] | + + + | Home Phone [...] | | | | | [place] [address] | | + + + + + | Thania Mallory | ECON | [address] | | | | | [place] [address] | | + + + + + | Deidra Weldon | ECON | [address] | | | | | [place] | | | | | [address] | | + + + + + Care Team Providers + +------+ + | Care Chair Caner Name | Role | Phone | + [...] | Family sheet) | | | | [address] | [address] | | | | | Caro [place] Mailcode: | [place], [place] | | | | | [address] Physician's | [address] | | | | | [address] | [phone] | | | | | [place], [place] | | | | | | [address] | | | | | | [phone] | | | +--------+ + + + [...] Denise | | | | | | [place] | | | | | | [address] | | | | | | [phone] | | | | | | | | +--------+ + + + + documented as of this encounter Visit Diagnoses Not on filedocumented in this encounter"
--- OUTSIDE RECORDS SUMMARY | ~2018-12-09 | XMS | Encounter Summary ---
Demographics + + + | Address | [address] | | | [place] [address] | + + + | Home Phone [...] | Author | [facility] | | | and Josephana | + + + | Organization | [facility] [...] + | 10/08/ | Orders Only | [facility] | Provider, | Systolic congestive | | 2019 | | SYSTEM GENERIC OP | MD [address] | heart failure (HCC) | | | | CONVERSION [address] | [place]. | | | | | [address] [place], [place] | [place] [address] | | | | | [address] | | | | | | [phone] | | | +--------+ + + + [...] DAVIDSON | | | | | | [place] [address] | | | | | | [phone] | | | | | | | [...]
--- OUTSIDE RECORDS SUMMARY | ~2018-12-09 | XMS | Encounter Summary ---
Demographics + + + | Address | [address] | | | [place] [address] | + + + | Home Phone [...] | | | | | [place] [address] | | + + + + + | Thania Mallory | ECON | [address] | | | | | [place] [address] | | + + + + + | Deidra Weldon | ECON | [address] | | | | | [place] | | | | | [address] | | + + + + + Care Team Providers + +------+ + | Care Windows Security Analyst Name | Role | Phone | [...] Rd | | | | | | [place], [place] | | | | | | [address] | | | +--------+ + + + [...] Denise | | | | | | [place], [place] | | | | | | [address] | | | | | | [phone] | | | | | | | | +--------+ + + + + documented as of this encounter Visit Diagnoses Not on [facility]"
--- OUTSIDE RECORDS SUMMARY | ~2018-12-09 | XMS | Encounter Summary ---
Demographics + + + | Address | [address] | | | [place] [address] | + + + | Home Phone [...] | | | | | [place] [address] | | + + + + + | Thania Mallory | ECON | [address] | | | | | [place] [address] | | + + + + + | Deidra Weldon | ECON | [address] | | | | | [place] | | | | | [address] | | + + + + + Care Team Providers + +------+ + | Care Gill Box Fixer Name | Role | Phone | [...] Closed | | Kidney | Diagnoses | uRfino, | Mayito | | | | Transplant | End stage | Sudhakar Castellanos, | MD Jesus | | | | | renal | [address] | | | | | disease | [address] | [address] | | | | | (HCC) | [place] [address] | [place], | | | | | Allergic | [place], [place] | [place] | | | | | purpura | [address] | [address] | | | | | (HCC) | Phone: | Phone: | | | | | | [phone] | [phone] | | | | | | Fax: | Fax: | | | | | | [phone] | [phone] | +--------+--------+ + + + + Encounter [...] | | Pavilion [address] [place], [place] | (HCC) (Primary Dx); | | | | [address] | [address] | Unspecified | | | | Mailcode: L590 | | essential | | | | [facility] | | hypertension; 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 El Starr MD cold storage superintendent, Division of Abdominal Organ Transplantation Professor of Urology CC: Sudhakar Joy MD [address] [place] [address] documented in this encoun ter Plan of Treatment +--------+ + + + + | Date | Type | Specialty | Care Team | Description | +--------+ + + + + | 05/04/ | Hospital | Adult Acute Care | El Starr MD | | | 2022 | Encounter | | [address] | | | | | | [place], [place] | | | | | | [address] | | | | | | [phone] | | | | | | | [...]
--- OUTSIDE RECORDS SUMMARY | ~2018-12-09 | XMS | Encounter Summary ---
Demographics + + + | Address | [address] | | | [place] [address] | + + + | Home Phone [...] + | Author | [facility] (Historical as of | | | 10-20-18) | + + + | Organization | [facility] (Historical as of | | | 10-20-18) [...] Providers + +------+ + | Care Condominium Association Manager Name | Role | Phone | [...] | | | | Jaciel E | [facility] | | | | | | [place], [place] | [address] | | | | | | [address] | [address] | | | | | | Phone: | [employer], [place] | | | | | | [phone] | [address] | | | | | | Fax: | Phone: | | | | | | [phone] | [phone] | | | | | | | Fax: | | | | | | | [phone] | + + + + + + [...] | | | | [address] | [place], [place] | | | | | | [place], [place] | [address] | | | | | | [address] | Phone: | | | | | | Phone: | [phone] | | | | | | [phone] | | | | | | | Fax: | | | | | | | [phone] | | + + + + + + + Encounter Details +--------+---------+ + + + | Date | Type | Department | Care Team | Description | +--------+---------+ + + + | 10/02/ | Office | [facility] | Denny Alexander | Pleural effusion | | 2019 | Visit | Pulmonology 1100 | Deny Briggs MD 1100 | (Primary Dx); SHADE | | | | Shantelle PRAJAPATI | Shantelle Grissom E | (obstructive sleep | | | | [place], [place] | [place] [address] | apnea); Marijuana | | | | [address] | [phone] | abuse | | | | [phone] | | | +--------+---------+ + + + [...] y.o. 1995 Referred from: Usha Martínez MD [address] [facility] [address] [place] [address] Referral reason: Chief Complaint Patient presents with [...] May. Back then she was admitted at [facility] for worsening dyspnea fo und to have a large right pleural effusion and ascites from fluid overload. Pleural fluid w as thought to be transudative. She then underwent another thoracentesis on 07/21/18. After that she had another one on 08/21 at [facility] wherein 2.5L was removed. She then had re -expansion pulmonary edema on the right and was transferred to [facility]. This had improved. Currently she is feeling [...] use. She is dialyzed Q MWF. Her unemployment inspector is Dr. Anguiano and Dr. Mhamood is her education general manager. Review of Systems Constitutional: Negative. Negative for [...] AV FISTULA; Surgeon: Rik Simon MD; Location: [facility] MAIN OR; Service: Vascula r; Laterality: Left; cephalic AV FISTULA REPAIR Left 03/07/2014 Procedure: AV FISTULA - GRAFT REPAIR/REVISION; Surgeon: Rik Simon MD; Location: [facility] MA IN OR; Service: Vascular; Laterality: Left; DECLOT GRAFT Left 03/07/2014 Procedure: GRAFT - DECLOT; Surgeon: Rik Simon MD; Location: [facility] MAIN OR; Service: Vas cular; Laterality: Left; DIALYSIS FISTULA CREATION N/A 04/08/2014 Procedure: DIALYSIS CATHETER - INSERTION; Surgeon: Rik Simon MD; Location: [facility] MAIN OR ; Service: Vascular; Laterality: N/A; tunneled catheter LAPAROSCOPIC PERITONEAL DIALYSIS CATHETER INSERTION x2 LAPAROSCOPIC PERITONEAL DIALYSIS CATHETER INSERTION Right 07/2013 current dialysis access MWF dialysis RENAL BIOPSY Left 2003 SUPERFICIALIZATION OF AV FISTULA Left 06/24/2014 Procedure: AV FISTULA - SUPERFICIALIZATION; Surgeon: Rik Simon MD; Location: [facility] MAIN OR; Service: Vascular; Laterality: [...] Social History Narrative She lives in [place]. She does not work. She has 1 [...] to the nearest ED which i s [place] to have it drained. - I will have her repeat her CXR when she returns for follow up. - if she requires frequent thoracenteses, then another option in the future would be pleuro desis. 2. SHADE (obstructive sleep apnea) - in the hospital, she was told she was desaturating at night and her mother also noted architect eic events when sleeping. I recommended having [...] Ros[address] | | | | | | [place] [address] | | | | | | [phone] | | | | | | | [...]
--- OUTSIDE RECORDS SUMMARY | ~2018-12-09 | XMS | Encounter Summary ---
Demographics + + + | Address | [address] | | | [place] [address] | + + + | Home Phone [...] | | | | | [place] [address] | | + + + + + | Deidra Weldon | ECON | [address] | | | | | [place] | | | | | [address] | | + + + + + Care Team Providers + +------+ + | Care Pharmacy Operations Manager Name | Role | Phone [...] | | | | | [address] [facility] | [facility] | | | | | Rd [place], [place] | [place], [place] | | | | | [address] | [address] | | | | | [phone] | | | +--------+ + + + [...] [place] | | | | | | [address] | | | | | | [phone] | | | | | | | | +--------+ + + + + documented as of this encounter Visit Diagnoses Not on filedocumented in this encounter"
--- OUTSIDE RECORDS SUMMARY | ~2018-12-09 | XMS | Encounter Summary ---
Demographics + + + | Address | [address] | | | [place] [address] | + + + | Home Phone [...] | | | | | [place] [address] | | + + + + + | Thania Mallory | ECON | [address] | | | | | [place] [address] | | + + + + + | Deidra Weldon | ECON | [address] | | | | | [place] | | | | | [address] | | + + + + + Care Team Providers + +------+ + | Care Manager Hotel Name | Role | Phone | + [...] | Coordinators [address] | [address] [facility] | Transplant | | | | ANNALISA Hoffmann [facility] | [facility] [facility] [address] [facility] [address] | Evaluation | | | | Rd [place], [place] | [place], [place] | | | | | [address] | [address] | | | | | [phone] | | | +--------+ + + + [...] Denise | | | | | | [place] | | | | | | [address] | | | | | | [phone] | | | | | | | | +--------+ + + + + documented as of this encounter Visit Diagnoses Not on filedocumented in this encounter"
--- OUTSIDE RECORDS SUMMARY | ~2018-12-09 | XMS | Encounter Summary ---
Demographics + + + | Address | [address] | | | [place] [address] | + + + | Home Phone [...] | | | | | [place] [address] | | + + + + + | Thania Mallory | ECON | [address] | | | | | [place] [address] | | + + + + + | Deidra Weldon | ECON | [address] | | | | | [place] | | | | | [address] | | + + + + + Care Team Providers + +------+ + | Care Operations Controller Name | Role | Phone | [...] (Immunizations) | | | | ANNALISA Hoffmann [facility] | [facility] | | | | | Rd [place], [place] | [place], [place] | | | | | [address] | [address] | | | | | [phone] | | | +--------+ + + + [...] | | | | | | [place], [place] | | | | | | [address] | | | | | | [phone] | | | | | | | | +--------+ + + + + documented as of this encounter Visit Diagnoses Not on filedocumented in this encounter"
--- OUTSIDE RECORDS SUMMARY | ~2018-12-09 | XMS | Encounter Summary ---
Demographics + + + | Address | [address] | | | [place] [address] | + + + | Home Phone [...] | | | | | [place] [address] | | + + + + + | Thania Mallory | ECON | [address] | | | | | [place] [address] | | + + + + + | Deidra Weldon | ECON | [address] | | | | | [place] | | | | | [address] | | + + + + + Care Team Providers + +------+ + | Care Carbon Rod Inserter Name | Role | Phone | [...] | | | [facility] | [facility] | | | | | Rd [place], [place] | [place], [place] | | | | | [address] | [address] | | | | | [phone] | | | +--------+ + + + [...] Denise | | | | | | [place] | | | | | | [address] | | | | | | [phone] | | | | | | | | +--------+ + + + + documented as of this encounter Visit Diagnoses Not on filedocumented in this encounter"
--- OUTSIDE RECORDS SUMMARY | ~2018-12-09 | XMS | Encounter Summary ---
Demographics + + + | Address | [address] | | | [place] [address] | + + + | Home Phone [...] | | | | | [place] [address] | | + + + + + | Thania Mallory | ECON | [address] | | | | | [place] [address] | | + + + + + | Deidra Weldon | ECON | [address] | | | | | [place] | | | | | [address] | | + + + + + Care Team Providers + +------+ + | Care Chief Enterprise Architect Name | Role | Phone | [...] issues with | | | | Rd [place], [place] | [place], [place] | pt's dad) | | | | [address] | [address] | | | | | [phone] | | | +--------+ + + + [...] [place] | | | | | | [address] | | | | | | [phone] | | | | | | | | +--------+ + + + + documented as of this encounter Visit Diagnoses Not on filedocumented in this encounter"
--- OUTSIDE RECORDS SUMMARY | ~2018-12-09 | XMS | Encounter Summary ---
Demographics + + + | Address | [address] | | | [place] [address] | + + + | Home Phone [...] | | | | | [place] [address] | | + + + + + | Thania Mallory | ECON | [address] | | | | | [place] [address] | | + + + + + | Deidra Weldon | ECON | [address] | | | | | [place] | | | | | [address] | | + + + + + Care Team Providers + +------+ + | Care Leather Grainer Name | Role | Phone | [...] pt's living/support | | | | Rd [place], [place] | [place], [place] | situation) | | | | [address] | [address] | | | | | [phone] | | | +--------+ + + + [...] Denise | | | | | | [place] | | | | | | [address] | | | | | | [phone] | | | | | | | | +--------+ + + + + documented as of this encounter Visit Diagnoses Not on filedocumented in this encounter"
--- OUTSIDE RECORDS SUMMARY | ~2018-12-09 | XMS | Encounter Summary ---
Demographics + + + | Address | [address] | | | [place] [address] | + + + | Home Phone [...] | | | | | [place] [address] | | + + + + + | Thania Mallory | ECON | [address] | | | | | [place] [address] | | + + + + + | Deidra Weldon | ECON | [address] | | | | | [place] | | | | | [address] | | + + + + + Care Team Providers + +------+ + | Care Education Administrative Assistant Name | Role | Phone [...] (Evaluation | | | | ANNALISA Hoffmann [facility] | [facility] [address] | Scheduled) | | | | Rd [place], [place] | [facility] [place] | | | | | [address] | [address] | | | | | [phone] | [phone] | | | | | | | [...] | | | | | | [place] | | | | | | [address] | | | | | | [phone] | | | | | | | | +--------+ + + + + documented as of this encounter Visit Diagnoses Not on filedocumented in this encounter"
--- OUTSIDE RECORDS SUMMARY | ~2018-12-09 | XMS | Encounter Summary ---
Demographics + + + | Address | [address] | | | [place] [address] | + + + | Home Phone [...] | | | | | [place] [address] | | + + + + + | Thania Mallory | ECON | [address] | | | | | [place] [address] | | + + + + + | Deidra Weldon | ECON | [address] | | | | | [place] | | | | | [address] | | + + + + + Care Team Providers + +------+ + | Care Crown Blocker Name | Role | Phone | [...] Hoffmann | | | | | ANNALISA [facility] | [facility] | | | | | Rd [place], [place] | [place], [place] | | | | | [address] | [address] | | | | | [phone] | | | +--------+ + + + [...] Denise | | | | | | [place], [place] | | | | | | [address] | | | | | | [phone] | | | | | | | | +--------+ + + + + documented as of this encounter Visit Diagnoses Not on filedocumented in this encounter"
--- OUTSIDE RECORDS SUMMARY | ~2018-12-09 | XMS | Encounter Summary ---
Demographics + + + | Address | [address] | | | [place] [address] | + + + | Home Phone [...] | | | | | [place] [address] | | + + + + + | Thania Mallory | ECON | [address] | | | | | [place] [address] | | + + + + + | Deidra Weldon | ECON | [address] | | | | | [place] | | | | | [address] | | + + + + + Care Team Providers + +------+ + | Care Truck Loader Overhead Crane Name | Role | Phone | + [...] Hoffmann | | | | | ANNALISA [facility] | [facility] | | | | | Rd [place], [place] | [place], [place] | | | | | [address] | [address] | | | | | [phone] | | | +--------+ + + + [...] Denise | | | | | | [place] | | | | | | [address] | | | | | | [phone] | | | | | | | | +--------+ + + + + documented as of this encounter Visit Diagnoses Not on filedocumented in this encounter"
--- OUTSIDE RECORDS SUMMARY | ~2018-12-09 | XMS | Encounter Summary ---
Demographics + + + | Address | [address] | | | [place] [address] | + + + | Home Phone [...] | | | | | [place] [address] | | + + + + + | Thania Mallory | ECON | [address] | | | | | [place] [address] | | + + + + + | Deidra Weldon | ECON | [address] | | | | | [place] | | | | | [address] | | + + + + + Care Team Providers + +------+ + | Care Supervisor Mechanic Boilermaking Name | Role | Phone | + [...] | | [facility] | [place], [place] | | | | | [address] | [address] | | | | | [place] Mailcode: | [phone] | | | | | [address] | | | | | | [place], [place] | | | | | | [address] | | | | | | [phone] | | | +--------+ + + + [...] [place] | | | | | | [address] | | | | | | [phone] | | | | | | | | +--------+ + + + + documented as of this encounter Visit Diagnoses Not on filedocumented in this encounter"
--- OUTSIDE RECORDS SUMMARY | ~2018-12-09 | XMS | Encounter Summary ---
Demographics + + + | Address | [address] | | | [place] [address] | + + + | Home Phone [...] | | | | | [place] [address] | | + + + + + | Thania Mallory | ECON | [address] | | | | | [place] [address] | | + + + + + | Deidra Weldon | ECON | [address] | | | | | [place] | | | | | [address] | | + + + + + Care Team Providers + +------+ + | Care Directional Driller Name | Role | Phone | + +------+ + | Shahid Camargo MD | PCP | Unavailable | + +------+ + Encounter Details +--------+ + + + + | Date | Type | Department | Care Team | Description | +--------+ + + + + | 12/20/ | Hospital | [facility] | | | | 2012 | Encounter | [address] | | | | | | [place] Mailcode: | | | | | | [address] | | | | | | [place], [place] | | | | | | [address] | | | | | | [phone] | | | +--------+ + + + [...] [place] | | | | | | [address] | | | | | | [phone] | | | | | | | [...]
--- OUTSIDE RECORDS SUMMARY | ~2018-12-09 | XMS | Encounter Summary ---
Demographics + + + | Address | [address] | | | [place] [address] | + + + | Home Phone [...] | | | | | [place] [address] | | + + + + + | Thania Mallory | ECON | [address] | | | | | [place] [address] | | + + + + + | Deidra Weldon | ECON | [address] | | | | | [place] | | | | | [address] | | + + + + + Care Team Providers + +------+ + | Care Staffing Executive Name | Role | Phone | [...] | | | | | ANNALISA Hoffmann [facility] | [facility] [address] | | | | | [place], [place] | [place], [place] | | | | | [address] | [address] | | | | | [phone] | [phone] | | | | | | | [...] Denise | | | | | | [place], [place] | | | | | | [address] | | | | | | [phone] | | | | | | | | +--------+ + + + + documented as of this encounter Visit Diagnoses Not on filedocumented in this encounter"
--- OUTSIDE RECORDS SUMMARY | ~2018-12-09 | XMS | Encounter Summary ---
Demographics + + + | Address | [address] | | | [place] [address] | + + + | Home Phone [...] + | Author | [facility] (Historical as of | | | 10-20-18) | + + + | Organization | [facility] (Historical as of | | | 10-20-18) [...] Team Providers + +------+ + | Care Armhole Presser Name | Role | Phone | + +------+ + | Jonathan Alonso MD | PCP | | + +------+ + Encounter Details +--------+ + + + + | Date | Type | Department | Care Team | Description | +--------+ + + + + | 10/02/ | Orders Only | [facility] | Halima Guzmán, | | | 2019 | | Pulmonology [address] | PLYCOR OPERATOR | | | | | [place] | | | | | | [place] | | | | | | [address] | | | | | | [phone] | | | +--------+ + + + [...] | | | | | [place] [address] | | | | | | [phone] | | | | | | | | +--------+---------+ + + + as of this encounter Visit Diagnoses Not on filein this encounter"
--- OUTSIDE RECORDS SUMMARY | ~2018-12-09 | XMS | Encounter Summary ---
Demographics + + + | Address | [address] | | | [place] [address] | + + + | Home Phone [...] | | | | | [place] [address] | | + + + + + | Thania Mallory | ECON | [address] | | | | | [place] [address] | | + + + + + | Deidra Weldon | ECON | [address] | | | | | [place] | | | | | [address] | | + + + + + Care Team Providers + +------+ + | Care Automation Test Developer Name | Role | Phone | [...] (pt | | | | ANNALISA Hoffmann [facility] | [facility] [address] | potential | | | | Rd [place], [place] | [place], [place] | donor/checking in | | | | [address] | [address] | with SW) | | | | [phone] | | | +--------+ + + + [...] [place] | | | | | | [address] | | | | | | [phone] | | | | | | | | +--------+ + + + + documented as of this encounter Visit Diagnoses Not on filedocumented in this encounter"
--- OUTSIDE RECORDS SUMMARY | ~2018-12-09 | XMS | Encounter Summary ---
Demographics + + + | Address | [address] | | | [place] [address] | + + + | Home Phone [...] | | | | | [place] [address] | | + + + + + | Thania Mallory | ECON | [address] | | | | | [place] [address] | | + + + + + | Deidra Weldon | ECON | [address] | | | | | [place] | | | | | [address] | | + + + + + Care Team Providers + +------+ + | Care Senior Office Assistant Name | Role | Phone [...] | | | | | ANNALISA Hoffmann [facility] | Stella [address] | | | | | [place], [place] | [place], [place] | | | | | [address] | [address] | | | | | [phone] | [phone] | | | | | | | [...] | | | | | | [place], [place] | | | | | | [address] | | | | | | [phone] | | | | | | | | +--------+ + + + + documented as of this encounter Visit Diagnoses Not on filedocumented in this encounter"
--- OUTSIDE RECORDS SUMMARY | ~2018-12-09 | XMS | Encounter Summary ---
Demographics + + + | Address | [address] | | | [place] [address] | + + + | Home Phone [...] | | | | | [place] [address] | | + + + + + | Thania Mallory | ECON | [address] | | | | | [place] [address] | | + + + + + | Deidra Weldon | ECON | [address] | | | | | [place] | | | | | [address] | | + + + + + Care Team Providers + +------+ + | Care Venue Manager Name | Role | Phone | [...] with [facility]SA) | | | | Rd [place], [place] | [place], [place] | | | | | [address] | [address] | | | | | [phone] | | | +--------+ + + + [...] Denise | | | | | | [place] | | | | | | [address] | | | | | | [phone] | | | | | | | | +--------+ + + + + documented as of this encounter Visit Diagnoses Not on filedocumented in this encounter"
--- OUTSIDE RECORDS SUMMARY | ~2018-12-09 | XMS | Encounter Summary ---
[...] + | Author | [facility] | | | and Josephana | + + + | Organization | [facility] [...] Providers + +------+ + | Care Editor Managing Director Name | Role | Phone [...] + + | 11/12/ | Telephone | [facility] | Silvia Rabago | DME (carlie, cmn, | | 2018 | | [address] | ABRIL Hernandez | [facility]) | | | | [place] | | | | | | [address] | | | | | | [phone] | | | +--------+ + + + [...] [place] | | | | | | [place] [address] | | | | | | [phone] | | | | | | | | +--------+---------+ + + + documented as of this encounter Visit Diagnoses Not on filedocumented in this encounter"
--- OUTSIDE RECORDS SUMMARY | ~2018-12-09 | XMS | Encounter Summary ---
Demographics + + + | Address | [address] | | | [place] [address] | + + + | Home Phone [...] | | | | | [place] [address] | | + + + + + | Thania Mallory | ECON | [address] | | | | | [place] [address] | | + + + + + | Deidra Weldon | ECON | [address] | | | | | [place] | | | | | [address] | | + + + + + Care Team Providers + +------+ + | Care Grain Sacker Name | Role | Phone | + [...] Requested | | | | [address] | [facility] | | | | | [facility] | [place] [address], [place] | | | | | [address] [facility] | [address] | | | | | [facility] Mailcode: | | | | | | [address] | | | | | | [address], [place] | | | | | | [address] | | | | | | [phone] | | | +--------+ + + + [...] | | | | | | [address], [place] | | | | | | [address] | | | | | | [phone] | | | | | | | | +--------+ + + + + documented as of this encounter Visit Diagnoses Not on filedocumented in this encounter"
[~2018-12-09 23:16] MED LIST changes: +CITALOPRAM HBR20 MG PO
--- OUTSIDE RECORDS SUMMARY | 2018-12-09 23:18 | XMS ---
PreManage Notification: CONOR LOUISE Security [employer] Consultant Events No recent Security Events currently on file CRITERIA MET - 6 ED Visits in 6 Months - [facility] - Has Care Guidelines - [facility] - 2 Visits in 30 Days CARE PROVIDERS TIEN NICHOLSON Internal Medicine 05/28/2018-Current PHONE: Unknown Karena has no Care Guidelines for this patient. Care History Medical/Surgical 11/29/2018 [facility] ED CASE MANAGEMENT CONSULT RECEIVED- CHW PROVIDED TO BASIL- W OF [facility] FOR HIGH RISK FOLLOW UP. 11/07/[address] [facility] [address] Nicholson has not seen Pt since 06/08/2018. 07/12/2018 \R\ Pt canceled appt w/ Dr Nicholson 07/18/2018 \R\ Pt LWOS in [facility] 08/18/2018 \R\ Pt canceled appt w/ Dr Nicholson 09/12/19. \R\ Pt was N/S for appt w/ Dr Nicholson 05/28/2018 [facility] - PATIENT HAS AN APT WITH PCP DR NICHOLSON ON 09/11/18. - PATIENT ENGRAVER SIGNATURE- DR HINSON- [phone] - Patient is currently established with [facility]. If patient is seen in the ED during business hours. Please contact CHWs at [facility]. Care Recommendation: This patient has had [...] care. E.D. VISIT COUNT (12 MO.) 4 [facility] 16 [facility] [place] TOTAL 20 NOTE: Visits indicate total known visits. ED/C VISIT TRACKING (12 MO.) 12/09/2018 23:16 [place] [place] TYPE: Emergency COMPLAINT: - CHEST PAIN, SOB 11/28/2018 09:12 [facility] [place] TYPE: Emergency COMPLAINT: - SOB, BLOOD PRESSURE PROBLEM DIAGNOSES: - Allergy status to narcotic agent status - Allergy status to other drugs, medicaments and biological substances status - Chronic kidney disease, unspecified - Radiographic dye allergy status - Shortness of breath - Pleural effusion, not elsewhere classified - Other ferry terminal agent (current) drug therapy - Personal history of nicotine dependence - Heart failure, unspecified 11/27/2018 21:50 [facility] [place] TYPE: Emergency COMPLAINT: - SOB, POSS HIGH BLOOD PRESSURE DIAGNOSES: - Pleural effusion, not elsewhere classified - Dependence on renal dialysis - Allergy status to narcotic agent status - Patient's noncompliance with other medical treatment and regimen - Allergy status to other drugs, medicaments and biological substances status - Radiographic dye allergy status - Other mcfp (current) drug therapy - Heart failure, unspecified - Allergy status to analgesic agent status - Shortness of breath - Hypertensive heart disease with heart failure 11/06/2018 08:24 [facility] [place] TYPE: Emergency COMPLAINT: - CHEST PAIN DIAGNOSES: - Other mcfp (current) drug therapy - Allergy status to [...] medicaments and biological substances status 10/17/2018 03:19 [facility] TYPE: Emergency DIAGNOSES: - Dependence on renal [...] - Dependence on renal dialysis - Other ferry terminal agent (current) drug therapy - Hypertensive chronic kidney disease with stage 1 through stage 4 chronic kidney disease, or unspecified chronic kidney disease 08/20/2018 13:08 [facility] [place] TYPE: Emergency COMPLAINT: - CHEST PAIN, SOB DIAGNOSES: - Dependence on renal dialysis - Chronic kidney disease, unspecified - Allergy status to other drugs, medicaments and biological substances status - Chronic pulmonary edema - Other ferry terminal agent (current) drug therapy - Allergy status to [...] specified abnormalities of plasma proteins - Other mcfp (current) drug therapy - Radiographic dye allergy status - Dependence on renal dialysis - Chest pain, unspecified 08/13/2018 [facility]00 [facility]2018 [facility] Emergency DIAGNOSES: - Hypoxemia - Pleural [...] PAIN DIAGNOSES: - Other chest pain - ocean transportation 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 - Allergy status to other drugs, medicaments and biological substances status - End stage renal disease - Dependence on renal dialysis - Personal history of nicotine dependence - Fluid overload, unspecified - Radiographic dye allergy status - Heart failure, unspecified - Other ferry terminal agent (current) drug therapy 06/12/2018 13:45 [facility] [place] TYPE: Emergency COMPLAINT: - SOB DIAGNOSES: - Shortness of breath - Radiographic dye allergy status - Unspecified asthma, uncomplicated - Hyperkalemia - Allergy status to narcotic agent status - Dependence on renal dialysis - Fluid overload, unspecified - Other mcfp (current) drug therapy - Allergy status to other drugs, medicaments and biological substances status - Chronic kidney disease, unspecified 06/11/2018 07:55 [facility] TYPE: Emergency COMPLAINT: - DIFFICULTY BREATHING,VOMITING DIAGNOSES: - Chronic pulmonary edema - Shortness of breath - Other ferry terminal agent (current) drug therapy - Radiographic dye allergy status - M[facility] (current) use of opiate analgesic - Personal history of nicotine dependence 06/04/2018 06:07 [facility] [place] TYPE: Emergency COMPLAINT: - SOB DIAGNOSES: - Shortness of breath - Allergy status to other drugs, medicaments and biological substances status - Radiographic dye allergy status - Other mcfp (current) drug therapy - Dyspnea, unspecified - Allergy status to narcotic agent status - Respiratory syncytial virus as the cause of diseases classified elsewhere 05/26/2018 11:57 [facility] TYPE: Emergency DIAGNOSES: - Acute respiratory distress - Chest pain, unspecified - Other ascites - Pleural effusion, not elsewhere classified 05/26/2018 07:23 [facility] [place] TYPE: Emergency COMPLAINT: - FLU SYMPTOMS DIAGNOSES: - Allergy status to other drugs, medicaments and biological substances status - Other ferry terminal agent (current) drug therapy - Radiographic dye allergy status - Dependence on renal dialysis - Pleural effusion, not elsewhere classified - Allergy status to narcotic agent status - Shortness of breath 05/25/2018 11:53 [facility] [place] TYPE: Emergency COMPLAINT: - SOB/COUGH DIAGNOSES: - Dependence on renal dialysis - Shortness of breath - Allergy status to narcotic agent status - Pneumonia, unspecified organism - Other ferry terminal agent (current) drug therapy - Radiographic dye allergy status - Pleural effusion, not elsewhere classified - Allergy status to other drugs, medicaments and biological substances status 05/10/2018 07:20 [facility] [place] TYPE: Emergency COMPLAINT: - PREVIOUS BLOODY NOSE DIAGNOSES: - Epistaxis - Other mcfp (current) drug therapy - End stage renal [...] unspecified, uncomplicated - Epigastric pain - Other ferry terminal agent (current) drug therapy INPATIENT VISIT TRACKING (12 MO.) 10/17/2018 03:19 [facility] TYPE: General Medicine DIAGNOSES: - Shortness of breath - Pleural effusion, not elsewhere classified - End stage renal disease - Dependence on renal dialysis 08/20/2018 17:21 [facility] TYPE: General Medicine DIAGNOSES: - Pleural Effusion - Chronic pulmonary edema 07/18/2018 22:44 [facility] [place] TYPE: General Medicine DIAGNOSES: - Hypoxemia - End stage renal disease - Pulmonary hypertension, unspecified - Chronic right heart failure - Personal history of other diseases of urinary system - Fever, unspecified - Pleural effusion, not elsewhere classified - Anemia in chronic kidney disease - Dependence on renal dialysis 05/26/2018 11:57 [facility] TYPE: General Medicine DIAGNOSES: - Acute respiratory [...] specified personal risk factors, not elsewhere classified [email or web address]
--- NOTE | 2018-12-10 16:49 | EKG ---
[facility] [address] [place] [address] Signed Sinus tachycardia Left axis deviation Abnormal ECG When compared with ECG of 27-NOV-2018 22:39, Previous ECG has undetermined rhythm, needs review QRS duration has decreased Minimal criteria for Septal infarct are no longer present T wave inversion no longer evident in Lateral leads Confirmed by REYNA POSEY DO ([id number]) on 12/10/2018 4:49:08 PM Electronically Signed By: REYNA POSEY DO 12/10/18 1649 PATIENT NAME: CONOR LOUISE Electrocardiogram DATE OF : [birth year] PHYSICIAN: REYNA POSEY DO REPORT #: [id number] REPORT IS CONFIDENTIAL AND NOT TO BE RELEASED WITHOUT AUTHORIZATION
== END 2018-12-10 08:39 | disposition home or self-care (01) ==
LOC: ED 23:16
DX: J81.1 Chronic pulmonary edema (principal); Z87.891 Personal history of nicotine dependence; Z91.041 Radiographic dye allergy status; Z88.5 Allergy status to narcotic agent; Z79.899 Other long term (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
CPT/HCPCS: 71045; 80053; 83735; 83880; 85025; 93005; 93010; 96374; 96375; 99285-25; J1170; J2405

== ENCOUNTER 2019-01-02 11:17 | Emergency (ER) | payer MEDICARE, OTHER ==
[~2019-01-02] VITALS: Ht 170.2 cm; Wt 74.4 kg
--- OUTSIDE RECORDS SUMMARY | ~2019-01-02 | XMS | Encounter Summary ---
Demographics + + + | Address | [address] | | | [place] [address] | + + + | Home Phone | | + + + | Preferred Language | Unknown | + + + | Marital Status | Single | + + + | Evangelical Affiliation | Unknown | + + + | Race | White | + + + | Ethnic Group | Not or | + + + Author + + + | Author | [facility] | + + + | Organization | [facility] | + + + | Address | Unknown | + + + | Phone | Unavailable | + + + Support + + + + + | Name | Relationship | Address | Phone | + + + + + | Cory Weldon | ECON | [address] | | | | | [place] [address] | | + + + + + | Thania Mallory | ECON | [address] | | | | | [place] [address] | | + + + + + | Deidra Weldon | ECON | [address] | | | | | [place] | | | | | [address] | | + + + + + Care Team Providers + +------+ + | Care Carcass Washer Name | Role | Phone | + +------+ + | Shahid Camargo MD | PCP | | + +------+ + Encounter Details +--------+ + + + + | Date | Type | Department | Care Team | Description | +--------+ + + + + | 12/20/ | Hospital | Radiology at [facility] | | | | 2012 | Encounter | [address] | | | | | | [place] Mailcode: | | | | | | [address] | | | | | | [place], [place] | | | | | | [address] | | | | | | [phone] | | | +--------+ + + + [...] | 2022 | Encounter | | [address] | | | | | | [place], [place] | | | | | | [address] | | | | | | [phone] | | | | | | | [...] | e | 9:27 AM | MEDICARE 1054 | procedure are in the | | [...] | | | | signed / SHARLENE FELICIANOJTAI | | | | | | 12/20/2012 9:46 AM | | | | | | | | | | | | Final/Electronically signed / SHARLENE FELICIANOJTAI 12/20/2012 9:46 AM | | | | [...]
--- OUTSIDE RECORDS SUMMARY | ~2019-01-02 | XMS | Encounter Summary ---
Demographics + + + | Address | [address] | | | [place] [address] | + + + | Home Phone [...] | | | | | [place] [address] | | + + + + + | Thania Mallory | ECON | [address] | | | | | [place] [address] | | + + + + + | Deidra Weldon | ECON | [address] | | | | | [place] | | | | | [address] | | + + + + + Care Team Providers + +------+ + | Care Glass Tube Bender Name | Role | Phone | + +------+ + | Shahid Camargo MD | PCP | | + +------+ + Encounter Details +--------+ + + + + | Date | Type | Department | Care Team | Description | +--------+ + + + + | 10/26/ | Documentati | Transplant | Kelsi Martinez, | | | 2012 | on | Coordinators [address] | RN [address] | | | | | [address] [facility] | [facility] | | | | | Rd [place], [place] | [place], [place] | | | | | [address] | [address] | | | | | [phone] | | | +--------+ + + + [...] Denise | | | | | | [place], [place] | | | | | | [address] | | | | | | [phone] | | | | | | | | +--------+ + + + + documented as of this encounter Visit Diagnoses Not on filedocumented in this encounter"
--- OUTSIDE RECORDS SUMMARY | ~2019-01-02 | XMS | Encounter Summary ---
Demographics + + + | Address | [address] | | | [place] [address] | + + + | Home Phone [...] | | | | | [place] [address] | | + + + + + | Thania Mallory | ECON | [address] | | | | | [place] [address] | | + + + + + | Deidra Weldon | ECON | [address] | | | | | [place] | | | | | [address] | | + + + + + Care Team Providers + +------+ + | Care Otologist Name | Role | Phone | + [...] + + | 02/14/ | Documentati | Transplant | Kelsi Martinez, | Committee Review | | 2013 | on | Coordinators [address] | RN [address] | Decision | | | | [address] [facility] | [facility] | | | | | Rd [place], [place] | [place], [place] | | | | | [address] | [address] | | | | | [phone] | | | +--------+ + + + [...] Denise | | | | | | [place], [place] | | | | | | [address] | | | | | | [phone] | | | | | | | | +--------+ + + + + documented as of this encounter Visit Diagnoses Not on filedocumented in this encounter"
--- OUTSIDE RECORDS SUMMARY | ~2019-01-02 | XMS | Encounter Summary ---
Demographics + + + | Address | [address] | | | [place] [address] | + + + | Home Phone [...] | | | | | [place] [address] | | + + + + + | Thania Mallory | ECON | [address] | | | | | [place] [address] | | + + + + + | Deidra Weldon | ECON | [address] | | | | | [place] | | | | | [address] | | + + + + + Care Team Providers + +------+ + | Care Surg Tech Name | Role | Phone | [...] | | Nephrology at | MD Emanuel [address] | | | | | [address] | [address] | | | | | [facility] | [place], [place] | | | | | [address] | [address] | | | | | [place] Mailcode: | [phone] | | | | | [address] | | | | | | [place], [place] | | | | | | [address] | | | | | | [phone] | | | +--------+ + + + [...] Denise | | | | | | [place], [place] | | | | | | [address] | | | | | | [phone] | | | | | | | [...] [address] | [place] [address] | [phone] | | HOSPITAL | | | | [...] [facility] | [address] | [place] [address] | [phone] | | HOSPITAL | | | | + + + + + documented in this encounter Visit Diagnoses Not on filedocumented in this encounter"
--- OUTSIDE RECORDS SUMMARY | ~2019-01-02 | XMS | Encounter Summary ---
Demographics + + + | Address | [address] | | | [place] [address] | + + + | Home Phone [...] | | | | | [place] [address] | | + + + + + | Thania Mallory | ECON | [address] | | | | | [place] [address] | | + + + + + | Deidra Weldon | ECON | [address] | | | | | [place] | | | | | [address] | | + + + + + Care Team Providers + +------+ + | Care Tipple Mechanic Name | Role | Phone | [...] + + | 12/19/ | Documentati | Transplant | Margarette Childers RN | Patient education | | 2012 | on | Coordinators [address] | [address] | (Education class) | | | | [address] | [facility] | | | | | Rd [place], [place] | [place], [place] | | | | | [address] | [address] | | | | | [phone] | | | +--------+ + + + [...] Denise | | | | | | [place] | | | | | | [address] | | | | | | [phone] | | | | | | | | +--------+ + + + + documented as of this encounter Visit Diagnoses Not on filedocumented in this encounter"
--- OUTSIDE RECORDS SUMMARY | ~2019-01-02 | XMS | Encounter Summary ---
Demographics + + + | Address | [address] | | | [place] [address] | + + + | Home Phone [...] | | | | | [place] [address] | | + + + + + | Thania Mallory | ECON | [address] | | | | | [place] [address] | | + + + + + | Deidra Weldon | ECON | [address] | | | | | [place] | | | | | [address] | | + + + + + Care Team Providers + +------+ + | Care Activated Sludge Attendant Name | Role | Phone | + +------+ + | Jonathan Alonso MD | PCP | | + +------+ + Encounter Details +--------+ + + + + | Date | Type | Department | Care Team | Description | +--------+ + + + + | 01/20/ | Hospital | Radiology at [facility] | | | | 2014 | Encounter | [address] | | | | | | [place] Mailcode: | | | | | | [address] | | | | | | [place], [place] | | | | | | [address] | | | | | | [phone] | | | +--------+ + + + [...] Denise | | | | | | [place], [place] | | | | | | [address] | | | | | | [phone] | | | | | | | [...] | | + +---------+ + + | [facility] DEPARTMENT OF | | | | [...]
--- OUTSIDE RECORDS SUMMARY | ~2019-01-02 | XMS | Encounter Summary ---
Demographics + + + | Address | [address] | | | [place] [address] | + + + | Home Phone [...] | | | | | [place] [address] | | + + + + + | Thania Mallory | ECON | [address] | | | | | [place] [address] | | + + + + + | Deidra Weldon | ECON | [address] | | | | | [place] | | | | | [address] | | + + + + + Care Team Providers + +------+ + | Care Vp Research Name | Role | Phone | + [...] + + | 05/07/ | Documentati | Transplant | Kelsi Martinez, | Other (Touching base | | 2013 | on | Coordinators [address] | RN [address] | ) | | | | [address] [facility] | [facility] | | | | | Rd [place], [place] | [place], [place] | | | | | [address] | [address] | | | | | [phone] | | | +--------+ + + + [...] [facility] | | | | | | [address] | | | | | | [phone] | | | | | | | | +--------+ + + + + documented as of this encounter Visit Diagnoses Not on filedocumented in this encounter"
--- OUTSIDE RECORDS SUMMARY | ~2019-01-02 | XMS | Encounter Summary ---
Demographics + + + | Address | [address] | | | [place] [address] | + + + | Home Phone [...] | | | | | [place] [address] | | + + + + + | Thania Mallory | ECON | [address] | | | | | [place] [address] | | + + + + + | Deidra Weldon | ECON | [address] | | | | | [place] | | | | | [address] | | + + + + + Care Team Providers + +------+ + | Care Technical Support Specialist Name | Role | Phone [...] Rd | | | | | | [place], [place] | | | | | | [address] | | | +--------+ + + + [...] Denise | | | | | | [place], [place] | | | | | | [address] | | | | | | [phone] | | | | | | | | +--------+ + + + + documented as of this encounter Visit [facility]oses [facility]"
--- OUTSIDE RECORDS SUMMARY | ~2019-01-02 | XMS | Clinical Summary ---
Demographics + + + | Address | [address] | | | [place] [address] | + + + | Home Phone | | + + + | Preferred Language | Unknown | + + + | Marital Status | Single | + + + | Gnosticism Affiliation | Unknown | + + + | Race | Unknown | + + + | Ethnic Group | Unknown | + + + Author + + + | Author | [facility] | | | and Josephana | + + + | Organization | [facility] | | | [...] Team Providers + +------+ + | Care Signal Maintenance Technician Name | Role | Phone | [...] Itching, Rash | Medium | 10/12/19 | | | | | | 13 | [...] | | | | | renal disease) ([facility]) | protocol | | | | | | + + + +---------+------+------+-------+ | etelcalcetide | Inject 2.5 mg into | | 0 | | | Activ | | (PARSABIV) 2.5 | the vein Three times | | | | | e | | mg/0.5 mL injection | a week. | | | | | | + + + +---------+------+------+-------+ | | Take 3 mLs by | | 0 | | | Activ | | albuterol-ipratropiu | nebulization. | | | | | e | | m 2.5-0.5 mg/3 mL | | | | | | | | SOLN | | | | | | | + + + +---------+------+------+-------+ | metoprolol | Take 1 tablet by | | 0 | 05/2 | 05/2 | Activ | | succinate | mouth daily. | | | 1/20 | 0/20 | e | | (TOPROL-XL) 50 mg 24 | | | | 19 | 20 | | | hr tablet | | | | | | | + + + +---------+------+------+-------+ | ondansetron | Take 4 mg by mouth 3 | | 0 | | | Activ | | (ZOFRAN) 4 mg tablet | (three) times daily | | | | | e | | | as needed for | | | | | | | | Nausea. | | | | | | + + + +---------+------+------+-------+ | pantoprazole | Take 40 mg by mouth | | 0 | | | Activ | | (PROTONIX) 40 mg | every morning before | | | | | e | | tablet | breakfast. | | | | | | + + + +---------+------+------+-------+ | promethazine | Take 1 tablet by [...] | | + + + +---------+------+------+-------+ | epoetin jenna | Inject 0.4 mLs [...] + + +---------+------+------+-------+ | sevelamer | Take 2 tablets by [...] | + + + +---------+------+------+-------+ | clopidogrel | Take 1 tablet by | 30 | 4 | 08/2 | | Activ | | (PLAVIX) 75 mg | mouth Daily. | tablet | | 0/20 | | e | | tablet | | | | 19 | | | + + + +---------+------+------+-------+ | losartan (COZAAR) | Take 1 tablet by | 30 | 1 | 09/0 | | Activ | | 25 mg tablet | mouth Daily. | tablet | | 6/20 | | e | | | | | | 19 | | | + + + +---------+------+------+-------+ Active Problems + + + | Problem | Noted Date | + + + | Bacteremia due to Gram-positive bacteria | 12/12/2018 | + + + | Pericardial effusion [...] 07/19/2018 | + + + | Acute respiratory failure with hypoxia | 07/18/2018 | + + + | [...] Overview: Active Kidney Transplant Waiting List at [facility]: | | 03/07/2014 | + + + [...] 9. | | Treated by Dr. Joy, pediatric assistant. | + + + +---+ | ESRD [...] declot | | but reclotted). Listed at [facility] for kidney transplant - status | | ACTIVE. | + + + +---+ | Anemia in ESRD (end-stage renal disease) | | + +---+ | Secondary hyperparathyroidism | | + +---+ | Obesity | | + +---+ Resolved Problems + + + + | Problem | Noted | Resolved | | | Date | Date | + + + + | Hypertensive [...] | 01/01/ | Refill | Nephrology | oJrje Camp | Medication Refill | | 2018 | | | DO Camille | | +--------+ + + + + | 12/19/ | Telephone | Hospitalist | George Torres RN | Congestive Heart | | 2019 | | | | Failure (Reviewed | | | | | | for CHF Quality | | | | | | Measures) | +--------+ + + + + | 12/17/ | Telephone | Case Management | Raymundo, | Appointment | | 2018 | | | Irish Obrien CMA | (Appointment with | | | | | | PCP needed) | +--------+ + + + + | 12/10/ | Hospital | Internal Medicine | Rayray Powers MD | Sepsis, due to | | 2019 - | Encounter | | Lee Harris MD | unspecified | | | | | Jw Neri DO | organism, | | 12/14/ | | | | unspecified whether | | 2018 | | | | acute organ | | | | | | dysfunction present | | | | | | (HCC) (Primary Dx); | | | | | | Pneumonia of right | | | | | | lower lobe due to | | | | | | infectious organism | | | | | | (HCC); Hypoxia; | | | | | | Hypervolemia, | | | | | | unspecified | | | | | | hypervolemia type; | | | | | | ESRD on dialysis | | | | | | (HCC); Hyperkalemia; | | | | | | Acute on chronic | | | | | | respiratory failure | | | | | | with hypoxia and | | | | | | hypercapnia (HCC); | | | | | | Acute respiratory | | | | | | failure with hypoxia | | | | | | (HCC); Anemia in | | | | | | ESRD (end-stage | | | | | | renal disease) | | | | | | (HCC); At high risk | | | | | | for electrolyte | | | | | | imbalance; Awaiting | | | | | | organ transplant | | | | | | status; 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 | | | | | | failure (HCC); | | | | | | Chronic right-sided | | | | | | heart failure (HCC); | | | | | | 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 | | | | | | (HCC); ESRD on | | | | | | hemodialysis (HCC); | | | | | | History [...] | | | | | | function ([facility]); | | | | | | Moderate to severe | | | | | | pulmonary | | | | | | hypertension ([facility]); | | | | | | Low grade fever; | | | | | | Noncompliance of | | | | | | patient with renal | | | | | | dialysis ([facility]); | | | | | | Pleural effusion, | | | | | | right; Gram-positive | | | | | | bacteremia | +--------+ + + + + | 11/15/ | Telephone | Hospitalist | George Torres RN | Medication Problem | | 2018 | | | | (CMN O2) | +--------+ + + + + | 11/15/ | Telephone | Hospitalist | George Torres RN | Lab Results | | 2018 | | | | (Cytology report) | +--------+ + + + + | 11/13/ | Telephone | Hospitalist | Silvia Rabago | DME (OXYGEN) | | 2018 | | | ABRIL Hernandez | | +--------+ + + + + | 11/12/ | Telephone | Hospitalist | Silvia Rabago | DME (oxygen, cmn, | | 2018 | | | A, RN | [facility]) | +--------+ + + + + | 11/06/ | Hospital | Internal Medicine | Johnathan Brooks, | Chronic right-sided | | 2019 - | Encounter | | Darell Dobbs, | heart failure (HCC) | | | | | MD | (Primary Dx); Acute | | | | | | hypoxemic | | 2018 | | | | respiratory failure | | | | | | ([facility]); 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 | | | | | | failure ([facility]); | | | | | | 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 | | | | | | ([facility]); ESRD on | | | | | | hemodialysis ([facility]); | | | | | | Moderate to severe | | | | | | pulmonary | | | | | | hypertension ([facility]); | | | | | | Pleural effusion, | | | | | | not elsewhere | | | | | | classified; | | | | | | Pulmonary edema with | | | | | | congestive heart | | | | | | failure with reduced | | | | | | left ventricular | | | | | | function ([facility]); | | | | | | Non-compliance; | | | | | | Troponin I above | | | | | | reference range; | | | | | | Anemia in ESRD | | | | | | (end-stage renal | | | | | | disease) ([facility]); At | | | | | | high risk for | | | | | | electrolyte | | | | | | imbalance; | | | | | | Hyperkalemia; | | | | | | Pericardial effusion | | | | | | without cardiac | | | | | | tamponade | +--------+ + + + + | 10/17/ | Hospital | Internal Medicine | Nikita, | ESRD (end stage | | 2019 - | Encounter | | MD Naresh | renal disease) | | | | | Gerber Pearson MD | ([facility]); Dilated | | 10/22/ | | | | cardiomyopathy | | 2019 | | | | ([facility]); | | | | | | Non-cardiogenic | | | | | | pulmonary edema; | | | | | | Anemia in ESRD | | | | | | (end-stage renal | | | | | | disease) ([facility]); | | | | | | Hyperphosphatemia; [...] failure | | | | | | ([facility]); At high risk | | | | | | for electrolyte | | | | | | imbalance; | | | | | | Non-compliance; | | | | | | Hypoalbuminemia | +--------+ + + + + | 10/17/ | Hospital | Internal Medicine | Nikita, | SOB (shortness of | | 2019 - | Encounter | | MD Naresh | breath); Pleural | | | | | | effusion on right; | | 10/20/ | | | | ESRD needing | | 2018 | | | | dialysis ([facility]); End | | | | | | stage renal disease | | | | | | ([facility]) | +--------+ + + + + | 10/08/ | Orders Only | | Provider, | Systolic congestive | | 2018 | | | MD Rubén | heart failure ([facility]) | +--------+ + + + + from [...] + + + | Blood Pressure | 117/72 | 12/14/20181119 PDT | + + + + | Pulse | 79 | 12/14/20181119 PDT | + + + + | Temperature | 36.8 C (98.2 F) | 12/14/20181119 PDT | + + + + | Respiratory Rate | 18 | 12/14/20181119 PDT | + + + + | Oxygen Saturation | 99% | 12/14/20181119 PDT | + + + + | Inhaled Oxygen | - | - | | Concentration | | | + + + + | Weight | 63.5 kg (139 lb 15.9 | 12/13/20181943 PDT | | | oz) | | + + + + | Height | 170.2 cm (5' 7") | 12/12/20181401 PDT | + + + + | Body Mass Index | 21.93 | 12/12/2018 1402 PDT | + + + + Plan [...] [address] | | | | | | [place] [address] | | | | | | [phone] | | | | | | | [...] Left: | SYNOVIS - | | | [id number] | | 0.8x8cm - [id number]: | | Arm | SYNO | | [...] | | | COVIDIEN | | | [id number] | | | | | -MATT 867 - | | | 3404 / | | | | | COVI | | | | | | | | | | | /[id number] | | | | | | | | 1X | + +------+------+ +--------+--------+--------+ Procedures + +--------+ + + + | Procedure Name | Priori | Date/Time | Associated Diagnosis | Comments | | | ty | | | | + +--------+ + + + | HEMODIALYSIS | Routin | 12/14/2018 | | Results for this | | | e | 9:52 PDT | | procedure are in the | | | | | | results section. | + +--------+ + + + | CBC WITH | Routin | 12/14/2018 | | Results for this | | DIFFERENTIAL | e | 6:10 PDT | | procedure are in the | | | | | | results section. | + +--------+ + + + | BASIC METABOLIC | Routin | 12/14/2018 | | Results for this | | PANEL | e | 6:10 PDT | | procedure are in the | | | | | | results section. | + +--------+ + + + | XR CHEST AP PORTABLE | Routin | 12/13/2018 | | Results for this | | | e | 15:39 PDT | | procedure are in the | | | | | | results section. | + +--------+ + + + | BASIC METABOLIC | Routin | 12/13/2018 | | Results for this | | PANEL | e | 5:27 PDT | | procedure are in the | | | | | | results section. | + +--------+ + + + | US GUIDED | Routin | 12/12/2018 | | Results for this | | THORACENTESIS WO | e | 13:53 PDT | | procedure are in the | | CHEST TUBE | | | | results section. | + +--------+ + + + | ECHO LIMITED | Routin | 12/12/2018 | | Results for this | | | e | 8:46 PDT | | procedure are in the | | | | | | results section. | + +--------+ + + + | C-REACTIVE PROTEIN | Routin | 12/12/2018 | | Results for this | | | e | 5:02 PDT | | procedure are in the | | | | | | results section. | + +--------+ + + + | CBC NO DIFFERENTIAL | Routin | 12/12/2018 | | Results for this | | | e | 5:02 PDT | | procedure are in the | | | | | | results section. | + +--------+ + + + | BASIC METABOLIC | Routin | 12/12/2018 | | Results for this | | PANEL | e | 5:02 PDT | | procedure are in the | | | | | | results section. | + +--------+ + + + | CULTURE, BLOOD | STAT | 12/12/2018 | | Results for this | | | | 5:02 PDT | | procedure are in the | | | | | | results section. | + +--------+ + + + | BASIC METABOLIC | Routin | 12/11/2018 | | Results for this | | PANEL | e | 19:46 PDT | | procedure are in the | | | | | | results section. | + +--------+ + + + | INFLUENZA A AND B | Routin | 12/11/2018 | | Results for this | | RNA, NAAT | e | 15:56 PDT | | procedure are in the | | | | | | results section. | + +--------+ + + + | FLU SWAB COLLECTION | Routin | 12/11/2018 | | Results for this | | | e | 15:46 PDT | | procedure are in the | | | | | | results section. | + +--------+ + + + | POC GLUCOSE (NON | Routin | 12/11/2018 | | Results for this | | ORD) | e | 8:31 PDT | | procedure are in the | | | | | | results section. | + +--------+ + + + | ECG 12 LEAD | STAT | 12/11/2018 | | Results for this | | | | 8:11 PDT | | procedure are in the | | | | | | results section. | + +--------+ + + + | PTT | Add-On | 12/11/2018 | | Results for this | | | | 8:06 PDT | | procedure are in the | | | | | | results section. | + +--------+ + + + | BASIC METABOLIC | STAT | 12/11/2018 | | Results for this | | PANEL | | 6:15 PDT | | procedure are in the | | | | | | results section. | + +--------+ + + + | CULTURE, BLOOD | STAT | 12/11/2018 | | Results for this | | | | 6:15 PDT | | procedure are in the | | | | | | results section. | + +--------+ + + + | CT CHEST ABDOMEN | INOCENCIO | 12/11/2018 | | Results for this | | PELVIS WO CONTRAST | | 2:12 PDT | | procedure are in the | | | | | | results section. | + +--------+ + + + | POC CG 4, ISTAT | Routin | 12/11/2018 | | Results for this | | ARTERIAL | e | 1:33 PDT | | procedure are in the | | | | | | results section. | + +--------+ + + + | RT BLOOD GAS POINT | STAT | 12/11/2018 | | | | OF CARE | | 1:17 PDT | | | + +--------+ + + + | LACTIC ACID | STAT | 12/11/2018 | | Results for this | | | | 1:04 PDT | | procedure are in the | | | | | | results section. | + +--------+ + + + | LACTIC ACID | STAT | 12/10/2018 | | Results for this | | | | 23:44 PDT | | procedure are in the | | | | | | results section. | + +--------+ + + + | CULTURE, BLOOD | STAT | 12/10/2018 | | Results for this | | | | 23:43 PDT | | procedure are in the | | | | | | results section. | + +--------+ + + + | XR CHEST AP PORTABLE | INOCENCIO | 12/10/2018 | | Results for this | | | | 23:24 PDT | | procedure are in the | | | | | | results section. | + +--------+ + + + | TROPONIN I | STAT | 12/10/2018 | | Results for this | | | | 23:02 PDT | | procedure are in the | | | | | | results section. | + +--------+ + + + | PROTIME INR | STAT | 12/10/2018 | | Results for this | | | | 23:02 PDT | | procedure are in the | | | | | | results section. | + +--------+ + + + | CBC WITH | STAT | 12/10/2018 | | Results for this | | DIFFERENTIAL | | 23:02 PDT | | procedure are in the | | | | | | results section. | + +--------+ + + + | PHOSPHORUS | STAT | 12/10/2018 | | Results for this | | | | 23:02 PDT | | procedure are in the | | | | | | results section. | + +--------+ + + + | MAGNESIUM | STAT | 12/10/2018 | | Results for this | | | | 23:02 PDT | | procedure are in the | | | | | | results section. | + +--------+ + + + | COMPREHENSIVE | STAT | 12/10/2018 | | Results for this | | METABOLIC PANEL | | 23:02 PDT | | procedure are in the | | | | | | results section. | + +--------+ + + + | ECG 12 LEAD | Routin | 12/10/2018 | | Results for this | | | e | 22:14 PDT | | procedure are in the | | | | | | results section. | + +--------+ + + + | ED INFORMATION | Routin | 12/10/2018 | | | | EXCHANGE | e | 22:01 PDT | | | + +--------+ + + + +---+--------+ | | | | | Proced | | | ure | | | Note - | | | Matt, | | | Lab In | | | | | | [facility] | | | n - | | | | | | 2018 | | | 2202 | | | PDT | | | Format | | | [...] R?MRN: | | | | | | [id number] | | | [id number] | | | riteri | | | [...] | | | St. | | | [place] | | | y | | | [...] | | | St. | | | [place] | | | y | | | [...] | | | St. | | | [place] | | | y | | | [...] | | | St | | | [place] | | | y | | | [...] St | | | | | | [place] | | | y | | | [...] | | | St. | | | [place] | | | y | | | [...] | | | St. | | | [place] | | | y H. | | [...] | | | St. | | | [place] | | | y H. | | [...] | | | St. | | | [place] | | | y H. | | [...] | | | St. | | | [place] | | | y H. | | [...] | | | St. | | | [place] | | | y H. | | [...] | | | St. | | | [place] | | | y H. | | [...] | | | St. | | | [place] | | | y H. | | [...] | | | MD | | | Public Address Servicer | | | al | | | [...] | | | [phone] | | | [phone] | | [phone] | | | [...] | +---+--------+ + +--------+ +---+ + | PERFORM HOME O2 | Routin | 11/09/2018 | | | | EVALUATION | e | 9:56 PDT | | | + +--------+ +---+ + | HEMODIALYSIS | Routin | 11/09/2018 | | Results for this | | | e | 9:34 PDT | | procedure are in the | | | | | | results section. | + +--------+ +---+ + | PHOSPHORUS | Add-On | 11/09/2018 | | Results for this | | | | 4:14 PDT | | procedure are in the | | | | | | results section. | + +--------+ +---+ + | COMPREHENSIVE | Routin | 11/09/2018 | | Results for this | | METABOLIC PANEL | e | 4:14 PDT | | procedure are in the | | | | | | results section. | + +--------+ +---+ + | CBC WITH | Routin | 11/09/2018 | | Results for this | | DIFFERENTIAL | e | 4:14 PDT | | procedure are in the | | | | | | results section. | + +--------+ +---+ + | PROTIME INR | Routin | 11/09/2018 | | Results for this | | | e | 4:14 PDT | | procedure are in the | | | | | | results section. | + +--------+ +---+ + | COMPREHENSIVE | Routin | 11/08/2018 | | Results for this | | METABOLIC PANEL | e | 4:47 PDT | | procedure are in the | | | | | | results section. | + +--------+ +---+ + | CBC WITH | Routin | 11/08/2018 | | Results for this | | DIFFERENTIAL | e | 4:47 PDT | | procedure are in the | | | | | | results section. | + +--------+ +---+ + | PROTIME INR | Routin | 11/08/2018 | | Results for this | | | e | 4:47 PDT | | procedure are in the | | | | | | results section. | + +--------+ +---+ + | XR CHEST AP PORTABLE | Routin | 11/07/2018 | | Results for this | | | e | 16:48 PDT | | procedure are in the | | | | | | results section. | + +--------+ +---+ + | US GUIDED | Routin | 11/07/2018 | | Results for this | | THORACENTESIS WO | e | 15:35 PDT | | procedure are in the | | CHEST TUBE | | | | results section. | + +--------+ +---+ + | MEDICAL CYTOLOGY | Routin | 11/07/2018 | | Results for this | | | e | 15:15 PDT | | procedure are in the | | | | | | results section. | + +--------+ +---+ + | PROTEIN, BODY FLUID | Routin | 11/07/2018 | | Results for this | | | e | 15:15 PDT | | procedure are in the | | | | | | results section. | + +--------+ +---+ + | LACTATE | Routin | 11/07/2018 | | Results for this | | DEHYDROGENASE, BODY | e | 15:15 PDT | | procedure are in the | | FLUID | | | | results section. | + +--------+ +---+ + | GLUCOSE, BODY FLUID | Routin | 11/07/2018 | | Results for this | | | e | 15:15 PDT | | procedure are in the | | | | | | results section. | + +--------+ +---+ + | CELL COUNT, BODY | Routin | 11/07/2018 | | Results for this | | FLUID | e | 15:15 PDT | | procedure are in the | | | | | | results section. | + +--------+ +---+ + | AMYLASE, BODY FLUID | Routin | 11/07/2018 | | Results for this | | | e | 15:15 PDT | | procedure are in the | | | | | | results section. | + +--------+ +---+ + | ALBUMIN, BODY FLUID | Routin | 11/07/2018 | | Results for this | | | e | 15:15 PDT | | procedure are in the | | | | | | results section. | + +--------+ +---+ + | CULTURE, BODY FLUID | Routin | 11/07/2018 | | Results for this | | STERILE | e | 15:15 PDT | | procedure are in the | | | | | | results section. | + +--------+ +---+ + | XR CHEST PA AND | Routin | 11/07/2018 | | Results for this | | LATERAL | e | 13:32 PDT | | procedure are in the | | | | | | results section. | + +--------+ +---+ + | ECG 12 LEAD | Routin | 11/07/2018 | | Results for this | | | e | 8:03 PDT | | procedure are in the | | | | | | results section. | + +--------+ +---+ + | TROPONIN I | Routin | 11/07/2018 | | Results for this | | | e | 7:34 PDT | | procedure are in the | | | | | | results section. | + +--------+ +---+ + | ECG 12 LEAD | Routin | 11/07/2018 | | Results for this | | | e | 4:16 PDT | | procedure are in the | | | | | | results section. | + +--------+ +---+ + | PLATELET COUNT | Routin | 11/07/2018 | | Results for this | | | e | 4:03 PDT | | procedure are in the | | | | | | results section. | + +--------+ +---+ + | PTT | Routin | 11/07/2018 | | Results for this | | | e | 4:03 PDT | | procedure are in the | | | | | | results section. | + +--------+ +---+ + | LACTATE | Add-On | 11/07/2018 | | Results for this | | DEHYDROGENASE | | 4:03 PDT | | procedure are in the | | | | | | results section. | + +--------+ +---+ + | MAGNESIUM | INOCENCIO | 11/07/2018 | | Results for this | | | | 4:03 PDT | | procedure are in the | | | | | | results section. | + +--------+ +---+ + | PROTIME INR | Routin | 11/07/2018 | | Results for this | | | e | 4:03 PDT | | procedure are in the | | | | | | results section. | + +--------+ +---+ + | COMPREHENSIVE | Routin | 11/07/2018 | | Results for this | | METABOLIC PANEL | e | 4:03 PDT | | procedure are in the | | | | | | results section. | + +--------+ +---+ + | TROPONIN I | INOCENCIO | 11/06/2018 | | Results for this | | | | 21:54 PDT | | procedure are in the | | | | | | results section. | + +--------+ +---+ + | PROTIME INR | Add-On | 11/06/2018 | | Results for this | | | | 17:32 PDT | | procedure are in the | | | | | | results section. | + +--------+ +---+ + | ECHO COMPLETE | Routin | 11/06/2018 | | Results for this | | | e | 17:14 PDT | | procedure are in the | | | | | | results section. | + +--------+ +---+ + | ECG 12 LEAD | STAT | 11/06/2018 | | Results for this | | | | 15:58 PDT | | procedure are in the | | | | | | results section. | + +--------+ +---+ + | TROPONIN I | INOCENCIO | 11/06/2018 | | Results for this | | | | 15:57 PDT | | procedure are in the | | | | | | results section. | + +--------+ +---+ + | MAGNESIUM | Routin | 11/06/2018 | | Results for this | | | e | 15:57 PDT | | procedure are in the | | | | | | results section. | + +--------+ +---+ + | CBC NO DIFFERENTIAL | Routin | 10/22/2018 | | Results for this | | | e | 13:10 PDT | | procedure are in the | | | | | | results section. | + +--------+ +---+ + | BASIC METABOLIC | Routin | 10/22/2018 | | Results for this | | PANEL | e | 5:33 PDT | | procedure are in the | | | | | | results section. | + +--------+ +---+ + | BASIC METABOLIC | Routin | 10/21/2018 | | Results for this | | PANEL | e | 5:48 PDT | | procedure are in the | | | | | | results section. | + +--------+ +---+ + | BASIC METABOLIC | Routin | 10/20/2018 | | Results for this | | PANEL | e | 6:41 PDT | | procedure are in the | | | | | | results section. | + +--------+ +---+ + | BASIC METABOLIC | Routin | 10/19/2018 | | Results for this | | PANEL | e | 6:20 PDT | | procedure are in the | | | | | | results section. | + +--------+ +---+ + | XR CHEST INSPIRATION | Routin | 10/18/2018 | | Results for this | | AND EXPIRATION | e | 17:02 PDT | | procedure are in the | | | | | | results section. | + +--------+ +---+ + | US GUIDED | Routin | 10/18/2018 | | Results for this | | THORACENTESIS WO | e | 16:07 PDT | | procedure are in the | | CHEST TUBE | | | | results section. | + +--------+ +---+ + | EXTERNAL LAB: CBC | Routin | 10/18/2018 | | Results for this | | | e | 5:44 PDT | | procedure are in the | | | | | | results section. | + +--------+ +---+ + | MAGNESIUM | Routin | 10/18/2018 | | Results for this | | | e | 5:44 PDT | | procedure are in the | | | | | | results section. | + +--------+ +---+ + | COMPREHENSIVE | Routin | 10/18/2018 | | Results for this | | METABOLIC PANEL | e | 5:44 PDT | | procedure are in the | | | | | | results section. | + +--------+ +---+ + | TROPONIN I | Routin | 10/17/2018 | | Results for this | | | e | 18:05 PDT | | procedure are in the | | | | | | results section. | + +--------+ +---+ + | CK TOTAL | Routin | 10/17/2018 | | Results for this | | | e | 18:05 PDT | | procedure are in the | | | | | | results section. | + +--------+ +---+ + | TROPONIN I | Routin | 10/17/2018 | | Results for this | | | e | 11:59 PDT | | procedure are in the | | | | | | results section. | + +--------+ +---+ + | CK TOTAL | Routin | 10/17/2018 | | Results for this | | | e | 11:59 PDT | | procedure are in the | | | | | | results section. | + +--------+ +---+ + | PROTIME INR | Routin | 10/17/2018 | | Results for this | | | e | 8:10 PDT | | procedure are in the | | | | | | results section. | + +--------+ +---+ + | XR CHEST 1 VIEW | Routin | 10/17/2018 | | Results for this | | | e | 3:57 PDT | | procedure are in the | | | | | | results section. | + +--------+ +---+ + | HISTORICAL LAB PANEL | Routin | 10/17/2018 | | Results for this | | RESULT | e | 3:49 PDT | | procedure are in the | | | | | | results section. | + +--------+ +---+ + | TROPONIN I | Routin | 10/17/2018 | | Results for this | | | e | 3:49 PDT | | procedure are in the | | | | | | results section. | + +--------+ +---+ + | B TYPE NATRIURETIC | Routin | 10/17/2018 | | Results for this | | PEPTIDE | e | 3:49 PDT | | procedure are in the | | | | | | results section. 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 on nasal oxygen Cardiovascular: Normal rate. Exam | | | reveals no gallop and no friction rub. No murmur heard. | | | Pulmonary/Chest: Effort normal. No stridor. No respiratory distress. | | | Pt has + wheezes, coarse BS. Musculoskeletal: pt exhibits no | | | edema in lower extremities . Access; pt has left AVF. It has | | | good thrill and bruit A/P ESRD requiring HD: Hemodynamically | | | stable on HD; continue per submitted dialysis orders. No | | | dialysis-related complications identified during dialysis | | | treatment today. Modifications to orders: none Billie Mora | | | MD Alonso 12/14/2018 | | + + + CBC with Differential (12/14/2018 6:10 PDT)Only the most recent of 4 results within the ti pa period is included. + + +--- + + + | Component | Value | Re f Range | Performed | Pathologist | | | | | At | Signature | + + +--- + + + | WBC | 7.00 | 3. 80 - 11.00 | [facility] | | | | | K/ uL | LABORATORY | | + + +--- + + + | RBC | 2.95 (L) | 3. 70 - 5.10 | [facility] | | | | | M/ uL | LABORATORY | | + + +--- + + + | Hemoglobin | 10.7 (L) | 11 .3 - 15.5 | [facility] | | | | | g/ dL | LABORATORY | | + + +--- + + + | Hematocrit | 32.1 (L) | 34 .0 - 46.0 % | [facility] | | | | | | LABORATORY | | + + +--- + + + | MCV | 108.7 (H) | 80 .0 - 100.0 fl | [facility] | | | | | | LABORATORY | | + + +--- + + + | MCH | 36.1 (H) | 27 .0 - 34.0 pg | [facility] | | | | | | LABORATORY | | + + +--- + + + | MCHC | 33.2 | 32 .0 - 35.5 | [facility] | | | | | g/ dL | LABORATORY | | + + +--- + + + | RDW-SD | 64.3 (H) | 37 - 53 fl | [facility] | | | | | | LABORATORY | | + + +--- + + + | Platelet | 200 | 15 0 - 400 K/uL | [facility] | | | Count | | | LABORATORY | | + + +--- + + + | MPV | 9.5 | fl | [facility] | | | | | | LABORATORY | | + + +--- + + + | Diff Type | AUTOMATED | | [facility] | | | | | | LABORATORY | | + + +--- + + + | % | 46.98 | % | [facility] | | | Neutrophils | | | LABORATORY | | + + +--- + + + | % | 27.60 | % | [facility] | | | Lymphocytes | | | LABORATORY | | + + +--- + + + | Monocyte % | 8.75 | % | [facility] | | | | | | LABORATORY | | + + +--- + + + | Eosinophils | 15.77 | % | [facility] | | | % | | | LABORATORY | | + + +--- + + + | Basophils % | 0.90 | % | [facility] | | | | | | LABORATORY | | + + +--- + + + | Neutrophils | 3.29 | 1. 90 - 7.40 | [facility] | | | , Absolute | | K/ uL | LABORATORY | | + + +--- + + + | Absolute | 1.93 | 1. 00 - 3.90 | [facility] | | | Lymphocytes | | K/ uL | LABORATORY | | + + +--- + + + | Absolute | 0.61 | 0. 00 - 0.80 | [facility] | | | Monocytes | | K/ uL | LABORATORY | | + + +--- + + + | Eosinophils | 1.10 (H) | 0. 00 - 0.50 | [facility] | | | , Absolute | | K/ uL | LABORATORY | | + + +--- + + + | Basophils, | 0.06 | 0. 00 - 0.10 | [facility] | | | Absolute | | K/ uL | LABORATORY | | + + +--- + + + | RBC | 2+Comment: | | [facility] | | | Morphology | ANISO2+MACRONORMAL PLT | | LABORATORY | | | | MORPHTesting performed | | | | | | at [facility], [address] | | | | | | [facility], | | | | | | [place] [address] | | | | | |Testing performed at [facility], [address] [place] [address] | | | | | | | | | | + + +--- + + + + + | Specimen | + + | Blood | + + + + + + + | Performing | Address | City/State/Zipcode | Phone Number | | Organization | | | | + + + + + | [facility] | [address] | [place] [address] | [phone] | + + + + + Basic Metabolic Panel (12/14/2018 6:10 PDT)Only the most recent of 9 results within the period is included. + + + + + + | Component | Value | Ref Range | Performed | Pathologist | | | | | At | Signature | + + + + + + | Na | 137 | 135 - 145 | [facility] | | | | | mmol/L | LABORATORY | | + + + + + + | K | 4.7 | 3.5 - 4.9 | [facility] | | | | | mmol/L | LABORATORY | | + + + + + + | Cl | 99 | 99 - 109 mmol/L | [facility] | | | | | | LABORATORY | | + + + + + + | CO2 | 27 | 23 - 32 mmol/L | [facility] | | | | | | LABORATORY | | + + + + + + | Anion Gap | 16 | 5 - 20 mmol/L | [facility] | | | | | | LABORATORY | | + + + + + + | Glucose | 89 | 65 - 99 mg/dL | [facility] | | | | | | LABORATORY | | + + + + + + | BUN | 26 (H) | 8 - 25 mg/dL | [...] | 9.4 | 8.5 - 10.5 | [facility] | | | | | mg/dL | [...] | | | | | | MDRD IDMD traceable | | | | | | equation.Testing | | | | | | performed at [facility], [address] | | | | | | [facility], | | | | | | [place] [address] | | | | + + + + + + + + | Specimen | + + | Blood | + + + + + + + | Performing | Address | City/State/Zipcode | Phone Number | | Organization | | | | + + + + + | [facility] | [address] | [place] [address] | [phone] | + + + + + XR Chest AP Portable (12/13/2018 15:39 PDT)Only the most recent of 3 results within the is included. + + | Specimen | + + | | + + + + + | Impressions | Performed At | + + + | There is no pneumothorax status post right thoracentesis. | [facility] | | Signed by: Eliza Khan, Lee Sign Date/Time: 12/13/2018 3:44 PM | | | | | + + + + + + | Narrative | Performed At | + + + | CHEST PORTABLE ONE VIEW CLINICAL INFORMATION: Status post | [facility] | | thoracentesis, respiratory failure. COMPARISON: US GUIDED | | | THORACENTESIS WO CHEST TUBE (12/11/2018); CT CHEST ABDOMEN PELVIS WO | | | CONTRAST (12/11/2018); XR CHEST AP PORTABLE (12/10/2018); FINDINGS: | | | Cardiac silhouette is borderline enlarged. There is no shift or | | | widening. No pneumothorax is noted status post right thoracentesis. | | | Hazy opacity along the right mid and lower lung may reflect some | | | residual pleural fluid and atelectasis. The pulmonary markings are | | | normal in caliber. | | + + + + + | Procedure Note | + + | Matt, Rad Results In - 12/13/2018 1547 PDT | | CHEST PORTABLE ONE VIEW | | | | CLINICAL INFORMATION: | | Status post thoracentesis, respiratory failure. | | | | COMPARISON: | | US GUIDED THORACENTESIS WO CHEST TUBE (12/11/2018); CT CHEST ABDOMEN | | PELVIS WO CONTRAST (12/11/2018); XR CHEST AP PORTABLE (12/10/2018); | | | | FINDINGS: | | Cardiac silhouette is borderline enlarged. There is no shift or | | widening. No pneumothorax is noted status post right thoracentesis. | | Hazy opacity along the right mid and lower lung may reflect some | | residual pleural fluid and atelectasis. The pulmonary markings are | | normal in caliber. | | | | IMPRESSION: | | There is no pneumothorax status post right thoracentesis. | | | | | | | | Signed by: Eliza Khan Richard | | Sign Date/Time: 12/13/2018 3:44 PM | + + + +---------+ + + | Performing | Address | City/State/Zipcode | Phone Number | | Organization | | | | + +---------+ + + | [facility] | | | | + +---------+ + + US Guided Thoracentesis wo Chest Tube (12/12/2018 13:53 PDT)Only the most recent of 3 resul ts within the time period is included. + + | Specimen | + + | | + + + + + | Impressions | Performed At | + + + | IMPRESSION: Documentation of intra procedural ultrasound | [facility] | | guidance. See procedure note for details. Signed by: | | | Eliza Echols, Fely Sign Date/Time: 12/12/2018 5:27 PM | | + [...] | Matt, Rad Results In - 12/12/2018 1731 PDT | | INTRAPROCEDURAL ULTRASOUND GUIDANCE | [...] +---------+ + + Echo Limited (12/12/2018 8:46 PDT) + +--------+ + + + | [...] +---------+ + + Culture, Blood (12/12/2018 5:02 PDT)Only the most recent of 3 results within the time jorge l od [...] Special | Testing performed at | | [facility] | | | Requests | [facility];[address] | | LABORATORY | | | | [address] [address] | | | | + + + + + + | RESULT | NO GROWTH 6 DAYS | | [facility] | | | | | | LAB[facility]ATORY | | + + + + + + | RESULT | Testing performed at | | [facility] | | | | TCL, [address] | | LABORATORY | | | | [place] | | | | | | [id number]: Testing | | | | | | performed at [facility], [address] | | [address] | | [place] | | | | | | [address] | | | | + + + + + + + + | Specimen | + + | Blood | + + + + + + + | Performing | Address | City/State/Zipcode | Phone Number | | Organization | | | | + + + + + | [facility] | [address] | [place] [address] | [phone] | + + + + + CBC no Differential (12/12/2018 5:02 PDT)Only the most recent of 2 results within the time period is included. + + + + + + | Component | Value | Ref Range | Performed | Pathologist | | | | | At | Signature | + + + + + + | WBC | 4.88 | 3.80 - 11.00 | [facility] | | | | | K/uL | LABORATORY | | + + + + + + | RBC | 2.72 (L) | 3.70 - 5.10 | [facility] | | | | | M/uL | LABORATORY | | + + + + + + | Hemoglobin | 9.8 (L) | 11.3 - 15.5 | [facility] | | | | | g/dL | LABORATORY | | + + + + + + | Hematocrit | 29.2 (L) | 34.0 - 46.0 % | [facility] | | | | | | LABORATORY | | + + + + + + | MCV | 107.2 (H) | 80.0 - 100.0 fl | [facility] | | | | | | LABORATORY | | + + + + + + | MCH | 36.0 (H) | 27.0 - 34.0 pg | [facility] | | | | | | LABORATORY | | + + + + + + | MCHC | 33.6 | 32.0 - 35.5 | [facility] | | | | | g/dL | LABORATORY | | + + + + + + | RDW-SD | 60.8 (H) | 37 - 53 fl | [facility] | | | | | | LABORATORY | | + + + + + + | Platelet | 153 | 150 - 400 K/uL | [facility] | | | Count | | | LABORATORY | | + + + + + + | MPV | 9.8Comment: Testing | fl | [facility] | | | | performed at [facility], [address] | | LABORATORY | | | | [address] [place], | | | | | | [place] [address] | | | | + + + + + + + + | Specimen | + + | Blood | + + + + + + + | Performing | Address | City/State/Zipcode | Phone Number | | Organization | | | | + + + + + | [facility] | [address] | [place] [address] | [phone] | + + + + + C-Reactive Protein (12/12/2018 5:02 PDT) + + + + + + | Component | Value | Ref Range | Performed | Pathologist | | | | | At | Signature | + + + + + + | CRP | 8.6 (H)Comment: Testing | <0.5 mg/dL | [facility] | | | | performed at [facility], [address] | | LABORATORY | | | | [address] [place], | | | | | | [place] [address] | | | | + + + + + + + + | Specimen | + + | Blood | + + + + + + + | Performing | Address | City/State/Zipcode | Phone Number | | Organization | | | | + + + + + | [facility] | [address] | [place] [address] | [phone] | + + + + + Influenza A and B RNA, NAAT (12/11/2018 15:56 PDT) + + + + + + | Component | Value | Ref Range | Performed | Pathologist | | | | | At | Signature | + + + + + + | Influenza A | NEGATIVE | NEG | [facility] | | | | | | LABORATORY | | + + + + + + | Influenza B | NEGATIVEComment: Testing | NEG | [facility] | | | | performed by Molecular | | LABORATORY | | | | MethodologyTesting | | | | | | performed at [facility];[address] | | | | | | [address];[place] | | | | | | [address] | | | | + + + + + + + + | Specimen | + + | | + + + + + + + | Performing | Address | City/State/Zipcode | Phone Number | | Organization | | | | + + + + + | [facility] | [address] | [place] [address] | [phone] | + + + + + FLU SWAB COLLECTION (12/11/2018 15:46 PDT) + + + + + + | Component | Value | Ref Range | Performed | Pathologist | | | | | At | Signature | + + + + + + | Collection | SPECIMEN RECEIVED IN | | [facility] | | | | LABComment: Testing | | LABORATORY | | | | performed at [facility];[address];[place], [place] | | | | | | [address] | | | | + + + + + + + + | Specimen | + + | Tissue | + + + + + + + | Performing | Address | City/State/Zipcode | Phone Number | | Organization | | | | + + + + + | [facility] | [address] | [place] [address] | [phone] | + + + + + POC Glucose (12/11/2018 8:31 PDT) + + + + + + | Component | Value | Ref Range | Performed | Pathologist | | | | | At | Signature | + + + + + + | Glucose, | 84Comment: Testing | 65 - 99 mg/dL | [facility] | | | POC | performed at [facility];[address] | | LABORATORY | | | | [address];[place], [place] | | | | | | [address] | | | | + + + + + + + + | Specimen | + + | | + + + + + + + | Performing | Address | City/State/Zipcode | Phone Number | | Organization | | | | + + + + + | [facility] | [address] | [place] [address] | [phone] | + + + + + ECG 12 lead (12/11/2018 8:11 PDT)Only the most recent of 5 results within the time period is included. + + + + + + | Component | Value | Ref Range | Performed | Pathologist | | | | | At | Signature | + + + + + + | VENTRICULAR | 75 | BPM | [facility] | | | RATE EKG | | | | | + + + + + + | ATRIAL RATE | 75 | BPM | [facility] | | + + + + + + | P-R | 184 | ms | [facility] | | | INTERVAL | | | | | + + + + + + | QRS | 94 | ms | [facility] | | | DURATION | | | | | + + + + + + | Q-T | 442 | ms | [facility] | | | INTERVAL | | | | | + + + + + + | Q-T | 493 | ms | [facility] | | | INTERVAL | | | | | | (CORRECTED) | | | | | + + + + + + | P WAVE AXIS | 15 | degrees | [facility] | | + + + + + + | QRS AXIS | -42 | degrees | [facility] | | + + + + + + | T AXIS | 120 | degrees | [facility] | | + + + + + + | INTERPRETAT | Normal sinus rhythmLeft | | [facility] | | | ION TEXT | axis | | | | | | deviationNonspecific ST | | | | | | and T wave | | | | | | abnormalityProlonged | | | | | | QTAbnormal ECGWhen | | | | | | compared with ECG of | | | | | | 04-NOV-2018 | | | | | | 08:03,Incomplete right | | | | | | bundle branch block is | | | | | | no longer PresentT wave | | | | | | inversion less evident | | | | | | in Lateral leadsThis ECG | | | | | | contains Unconfirmed | | | | | | Interpretation | | | | | | Statements. See ED | | | | | | Record for Physician | | | | | | Interpretation. | | | | | | Confirmed by MUSE READ | | | | | | ONLY, -COMPUTER ([id number]), | | | | | | brands editor Daniela Luciano | | | | | | ([id number]) on 12/11/2018 | | | | | | 2:07:45 PM | | | | + + [...] | | + +---------+ + + PTT (12/11/2018 8:06 PDT)Only the most recent of 2 results within the time period is inclu ded. + + + + + + | Component | Value | Ref Range | Performed | Pathologist | | | | | At | Signature | + + + + + + | PTT | 32Comment: Testing | 23 - 32 seconds | [facility] | | | | performed at [facility];[address] | | LABORATORY | | | | [address];[place], [place] | | | | | | [address] | | | | + + + + + + + + | Specimen | + + | Blood | + + + + + + + | Performing | Address | City/State/Zipcode | Phone Number | | Organization | | | | + + + + + | [facility] | [address] | [place] [address] | [phone] | + + + + + CT Chest Abdomen Pelvis wo Contrast (12/11/2018 2:12 PDT) + + | Specimen | + [...] air trapping, emphysema or edema. 2. Mild | | | splenomegaly. 3. Mild ascites. 4. Atrophic kidneys. | | | 5. Tiny punctate nonobstructing left renal calculus. 6. Mild | | | diffuse body wall edema. Signed by: Eliza Glass, Mere Sign | | | Date/Time: 12/11/2018 2:45 AM | | + + [...] + + | Matt, Rad Results In 12/11/2018 0249 PDT | | CT CHEST ABDOMEN AND [...] | | | | Signed by: Eliza Glass Sadaf | | Sign Date/Time: 12/11/2018 2:45 AM | + + + +---------+ + + | Performing | Address | City/State/Zipcode | Phone Number | | Organization | | | | + +---------+ + + | [facility] | | | | + +---------+ + + POC CG 4, ISTAT Arterial (12/11/2018 1:33 PDT) + + + + + + [...] Comment, | Modified Doyle Test | | [facility] | | | POC | passedComment: Testing | | LABORATORY | | | | performed at [facility] | | | | | | [address];[place], [place] | | | | | | [address] | | | | + + + + + + + + | Specimen | + + | | + + + + + + + | Performing | Address | City/State/Zipcode | Phone Number | | Organization | | | | + + + + + | [facility] | [address] | [place] [address] | [phone] | + + + + + Lactic Acid (12/11/2018 1:04 PDT)Only the most recent of 2 results within the time period is included. + + + + + + | Component | Value | Ref Range | Performed | Pathologist | | | | | At | Signature | + + + + + + | Lactate, | 1.2Comment: Testing | 0.4 - 2.0 | [facility] | | | Serum | performed at [facility];[address] | mmol/L | LABORATORY | | | | [address];[place], [place] | | | | | | [address] | | | | + + + + + + + + | Specimen | + + | Blood | + + + + + + + | Performing | Address | City/State/Zipcode | Phone Number | | Organization | | | | + + + + + | [facility] | [address] | [place] [address] | [phone] | + + + + + Troponin I (12/10/2018 23:02 PDT)Only the most recent of 7 results within the time period i s included. + + + + + + | Component | Value | Ref Range | Performed | Pathologist | | | | | At | Signature | + + + + + + | Troponin I | 0.085 (H)Comment: 0.04 | 0.00 - 0.04 | [facility] | | | | ng/mL or | ng/mL | LABORATORY | | | | less Nega | | | | | | tive, repeat testing in | | | | | | four to six hour | | | | | | ifclinically | | | | | | indicted0.05 to 0.77 | | | | | | ng/mL Leti | | | | | | picious for myocardial | | | | | | injury. Serial | | | | | | measurementsmay be | | | | | | necessary to confirm or | | | | | | exclude the diagnosis of | | | | | | acute coronarysyndrome. | | | | | | Repeat testing in four | | | | | | to six hours if | | | | | | indicated.0.78 or | | | | | | greater | | | | | | ng/mL Consistent | | | | | | with myocardial injury. | | | | | | Clinical andlaboratory | | | | | | correlation recommended. | | | | | | Testing performed at | | | | | | [facility];[address];[place] [address] | | | | + + + + + + + + | Specimen | + + | Blood | + + + + + + + | Performing | Address | City/State/Zipcode | Phone Number | | Organization | | | | + + + + + | [facility] | [address] | [place] [address] | [phone] | + + + + + Protime INR (12/10/2018 23:02 PDT)Only the most recent of 6 results within the time period is included. + + + + + + | Component | Value | Ref Range | Performed | Pathologist | | | | | At | Signature | + + + + + + | INR | 1.3Comment: REFERENCE | | [facility] | | | | RANGE:0.9 - | | LABORATORY | | | | 1.2 NON-ANTICOAGULATE | | | | | | D2.0 - 3.0 ALL OTHER | | | | | | THERAPEUTIC | | | | | | INDICATIONS2.5 - 3.5 | | | | | | MECHANICAL HEART VALVES, | | | | | | RECURRENT OR SYSTEMIC | | | | | | EMBOLISMTesting | | | | | | performed at [facility];[address] | | | | | | [address];[place] | | | | | | [address] | | | | + + + + + + + + | Specimen | + + | Blood | + + + + + + + | Performing | Address | City/State/Zipcode | Phone Number | | Organization | | | | + + + + + | [facility] | [address] | [place] [address] | [phone] | + + + + + Phosphorus (12/10/2018 23:02 PDT)Only the most recent of 2 results within the time period i s included. + + + + + + | Component | Value | Ref Range | Performed | Pathologist | | | | | At | Signature | + + + + + + | Phosphorus | 8.9 (H)Comment: Testing | 2.3 - 4.8 mg/dL | [facility] | | | | performed at [facility];[address] | | LABORATORY | | | | [address];[place], [place] | | | | | | [address] | | | | + + + + + + + + | Specimen | + + | Blood | + + + + + + + | Performing | Address | City/State/Zipcode | Phone Number | | Organization | | | | + + + + + | [facility] | [address] | [place] [address] | [phone] | + + + + + Magnesium (12/10/2018 23:02 PDT)Only the most recent of 4 results within the time period is included. + + + + + + | Component | Value | Ref Range | Performed | Pathologist | | | | | At | Signature | + + + + + + | Magnesium | 2.2Comment: Testing | 1.7 - 2.4 mg/dL | [facility] | | | | performed at [facility];[address] | | LABORATORY | | | | [address];[place], [place] | | | | | | [address] | | | | + + + + + + + + | Specimen | + + | Blood | + + + + + + + | Performing | Address | City/State/Zipcode | Phone Number | | Organization | | | | + + + + + | [facility] | [address] | [place] [address] | [phone] | + + + + + Comprehensive Metabolic Panel (12/10/2018 23:02 PDT)Only the most recent of 5 results withi n the time period is included. + + + + + + | Component | Value | Ref Range | Performed | Pathologist | | | | | At | Signature | + + + + + + | Na | 137 | 135 - 145 | [facility] | | | | | mmol/L | LABORATORY | | + + + + + + | K | 6.3 ()Comment: CALLED | 3.5 - 4.9 | [facility] | | | | PHYSICIANREAD BACK | mmol/L | LABORATORY | | | | RESULTS VERIFIEDSHAINA | | | | | | RN IN ED AT 0017 BY TD | | | | | |JANNY RN IN ED AT 0017 BY TD | | | | | | | | | | + + + + + + | Cl | 100 | 99 - 109 mmol/L | [facility] | | | | | | LABORATORY | | + + + + + + | CO2 | 19 (L) | 23 - 32 mmol/L | [facility] | | | | | | LABORATORY | | + + + + + + | Anion Gap | 24 (H) | 5 - 20 mmol/L | [facility] | | | | | | LABORATORY | | + + + + + + | Glucose | 75 | 65 - 99 mg/dL | [facility] | | | | | | LABORATORY | | + + + + + + | BUN | 61 (H) | 8 - 25 mg/dL | [facility] | | | | | | LABORATORY | | + + + + + + | Creatinine | 13.44 (H) | 0.50 - 1.00 | [facility] | | | | | mg/dL | LABORATORY | | + + + + + + | BUN/Creatin | 5 | | [facility] | | | ine Ratio | | | LABORATORY | | + + + + + + | Calcium | 9.4 | 8.5 - 10.5 | [facility] | | | | | mg/dL | LABORATORY | | + + + + + + | Protein, | 6.8 | 6.3 - 8.2 g/dL | [facility] | | | Total | | | LABORATORY | | + + + + + + | Albumin | 4.3 | 3.6 - 5.0 g/dL | [facility] | | | | | | LABORATORY | | + + + + + + | Globulin | 2.5 | 1.3 - 4.9 g/dL | [facility] | | | | | | LABORATORY | | + + + + + + | A/G Ratio | 1.7 | 1.0 - 2.4 | [facility] | | | | | | LABORATORY | | + + + + + + | BILIRUBIN, | 1.1 | 0.1 - 1.5 mg/dL | [facility] | | | TOTAL | | | LABORATORY | | + + + + + + | ALK PHOS | 123 (H) | 35 - 115 U/L | [facility] | | | | | | LABORATORY | | + + + + + + | AST | 27 | 10 - 45 U/L | [facility] | | | | | | LABORATORY | | + + + + + + | ALT | 22 | 10 - 65 U/L | [facility] | | | | | | LABORATORY | | + + + + + + | Estimated | 3 (L)Comment: GFR <60: | >60 | [facility] [...] | | | | | performed at [facility] | | | | | | [facility];[place], [place] | | | | | | [id number] | | | | + + + + + + + + | Specimen | + + | Blood | + + + + + + + | Performing | Address | City/State/Zipcode | Phone Number | | Organization | | | | + + + + + | [facility] | [address] | [place] [address] | [phone] | + + + + + HEMODIALYSIS (11/09/2018 9:34 PDT) + + + | Narrative | Performed At | + + + | Billie Gupta MD 11/09/2018 9:34 [facility] | | | [facility] Hemo-Dialysis Procedure note Pt is seen on | | | Dialysis. Indication for Dialysis: ESRD for Clearance and UF | | | Review of Systems: On dialysis, the patient denies nausea, | | | vomiting,chest pain, palpitations, headaches . Laboratory Findings | | | Lab Results Component Value Date BUN 46 (H) 11/09/2018 CREA | | | 7.5 (H) 11/09/2018 EGFR 7 (L) 11/09/2018 NA 140 11/09/2018 K | | | 4.3 11/09/2018 CL 99 11/09/2018 CO2 33 (H) 11/09/2018 CALCIUM | | | 9.0 11/09/2018 PHOS 7.6 (H) 11/09/2018 MG 2.3 11/07/2018 | | | ALBUMIN 3.3 (L) 11/09/2018 WBC 4.25 11/09/2018 HGB 9.4 (L) | | | 11/09/2018 PLT 132 (L) 11/09/2018 Lab Results Component | | | Value Date COLORUA YELLOW 11/07/2018 Component Value | | | Date/Time CREA 7.5 (H) 11/09/2018 0414 CREA 5.6 (H) 11/08/2018 | | | 0447 CREA 7.4 (H) 11/07/2018 0403 CREA 7.3 (H) 10/22/2018 0533 | | | CREA 5.0 (H) 10/21/2018 0548 CREA 5.83 (H) 10/20/2018 0641 | | | CREA 9.21 (HH) 02/24/2014 0659 LABCREA 7.2 (H) 10/19/2018 0620 | | | LABCREA 9.3 (H) 10/18/2018 0544 LABCREA 14.52 (H) 10/17/2018 0349 | | | LABCREA 5.62 (H) 08/22/2018 0702 LABCREA 9.6 (H) 08/21/2018 0502 | | | LABCREA 8.68 (H) 08/20/2018 1743 LABCREA 5.48 (H) 07/24/2018 | | | 0604 LABCREA 8.3 (H) 07/23/2018 0532 LABCREA 4.6 (H) 07/21/2018 | | | 0600 LABCREA 5.65 (H) 07/20/2018 0625 LABCREA 7.7 (H) 07/19/2018 | | | 0610 LABCREA 7.2 (H) 06/01/2018 0443 Physical | | | Exam Blood pressure 126/76, pulse 65, temperature 36.4 C (97.6 | | | F), temperature source Oral, resp. rate 16, height 1.702 m (5' | | | 7"), weight 69.6 kg (153 lb 7 oz), SpO2 100 %, not currently | | | . 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 [employer] [address] | | | Constitutional: pt appears without distress. Cardiovascular: | | | Normal rate. Exam reveals no gallop and no friction rub. No | | | murmur heard. Pulmonary/Chest: Effort normal. No stridor. No | | | respiratory distress. Pt has no wheezes, no rales . | | | Musculoskeletal: pt exhibits no edema in lower extremities . | | | Access; pt has left AVF. It has good thrill and bruit A/P | | | ESRD requiring HD: Hemodynamically stable on HD; continue per | | | submitted dialysis orders. No dialysis-related complications | | | identified during dialysis treatment today. Modifications to | | | orders: none Billie Gupta MD 11/09/2018 | | + + + Culture, Body Fluid Sterile (11/07/2018 15:15 PDT) + + + + + + | Component | Value | Ref Range | Performed | Pathologist | | | | | At | Signature | + + + + + + | Special | RIGHT SIDE | | [facility] | | | Requests | | | LABORATORY | | + + + + + + | Special | Testing performed at | | [facility] | | | Requests | [facility] | LABORATORY | | | | [address];[place] [address] | | | | + + + + + + | Gram Stain | NO CELLS OR ORGANISMS | | [facility] | | | Result | SEEN | | LABORATORY | | + + + + + + | RESULT | NO GROWTH 4 DAYS | | [facility] | | | | | | LABORATORY | | + + + + + + | RESULT | Testing performed at | | [facility] | | | | TCL, [address] [facility] | | LABORATORY | | | | [place] | | | | | | [id number]: Testing | | | | | | performed at [facility], [address] | | | | | | [address] [place] | | | | | | [address] | | | | + + + + + + + + | Specimen | + + | Body Fluid | + + + + + + + | Performing | Address | City/State/Zipcode | Phone Number | | Organization | | | | + + + + + | [facility] | [address] | [place] [address] | [phone] | + + + + + Cell Count, Body Fluid (11/07/2018 15:15 PDT) + + + + + + [...] + + + + | APPEARANCE | CLEAR | | [facility] | | | | | | LABORATORY | | + + + + + + | BF RBC | <30760 | /mm3 | [facility] | | | | | | LABORATORY | | + + + + + + | BF | 6 | /mm3 | [facility] | | | Nucleated | | | LABORATORY | | | Cells | | | | | + + + + + + | Neutrophils | 5 | % | [facility] | | | , Fluid | | | LABORATORY | | + + + + + + | BF % | 7 | % | [facility] | | | Lymphocytes | | | LABORATORY | | + + + + + + | BF | 6 | % | [facility] | | | Mononuclear | | | LABORATORY | | | Phagocytes | | | | | | % | | | | | + + + + + + | MESOTHELIAL | 7 | % | [facility] | | | CELLS | | | LABORATORY | | + + + + + + | Cells | 25Comment: Testing | | [facility] | | | Counted | performed at [facility] | | LABORATORY | | | | [address];[place], [place] | | | | | | [address] | | | | + + + + + + + + | Specimen | + + | Body Fluid | + + + + + + + | Performing | Address | City/State/Zipcode | Phone Number | | Organization | | | | + + + + + | [facility] | [address] | [place] [address] | [phone] | + + + + + Protein, Body Fluid (11/07/2018 15:15 PDT) + + + + + + | Component | Value | Ref Range | Performed | Pathologist | | | | | At | Signature | + + + + + + | Protein, BF | 3.4Comment: This is not | g/dL | [facility] | | | | a appliance installer validated | | LABORATORY | | | | sample type for this | | | | | | method. No | | | | | | referenceranges have | | | | | | been established.Testing | | | | | | performed at [facility], [address] [facility], | | | | | | [place] [address] | | | | + + + + + + | SOURCE | PLEURAL FLUIDComment: | | [facility] | | | | Testing performed at | | LABORATORY | | | | [facility];[address] | | [address] | [address];[place] [address] | | | | + + + + + + + + | Specimen | + + | Body Fluid | + + + + + + + | Performing | Address | City/State/Zipcode | Phone Number | | Organization | | | | + + + + + | [facility] | [address] | [place] [address] | [phone] | + + + + + Lactate dehydrogenase, body fluid (11/07/2018 15:15 PDT) + + + + + + | Component | Value | Ref Range | Performed | Pathologist | | | | | At | Signature | + + + + + + | LDH, BODY | 102Comment: This is not | U/L | [facility] | | | FLUID | a appliance installer validated | | LABORATORY | | | | sample type for this | | | | | | method. No | | | | | | referenceranges have | | | | | | been established.Testing | | | | | | performed at [facility], [address] | | [address] | [address] [facility], | | | | | | [place] [address] | | | | + + + + + + + + | Specimen | + + | Body Fluid | + + + + + + + | Performing | Address | City/State/Zipcode | Phone Number | | Organization | | | | + + + + + | [facility] | [address] | [place] [address] | [phone] | + + + + + Glucose, Body Fluid (11/07/2018 15:15 PDT) + + + + + + | Component | Value | Ref Range | Performed | Pathologist | | | | | At | Signature | + + + + + + | Glucose | 96Comment: This is not a | mg/dL | [facility] | | | Fluid | appliance installer validated | | LABORATORY | | | | sample type for this | | | | | | method. No | | | | | | referenceranges have | | | | | | been established.Testing | | | | | | performed at [facility], [address] | [address], | | | | | | [place] [address] | | | | + + + + + + | SOURCE | PLEURAL FLUIDComment: | | [facility] | | | | Testing performed at | | LABORATORY | | | | [facility];[address] | | | | | | [address];[place] [address] | | | | + + + + + + + + | Specimen | + + | Body Fluid | + + + + + + + | Performing | Address | City/State/Zipcode | Phone Number | | Organization | | | | + + + + + | [facility] | [address] | [place] [address] | [phone] | + + + + + Amylase, Body Fluid (11/07/2018 15:15 PDT) + + + + + + | Component | Value | Ref Range | Performed | Pathologist | | | | | At | Signature | + + + + + + | AMYLASE | 46Comment: This is not a | U/L | [facility] | | | FLUID | appliance installer validated | | LABORATORY | | | | sample type for this | | | | | | method. No | | | | | | referenceranges have | | | | | | been established.Testing | | | | | | performed at [facility], [address] | | | | | | [address] [facility], | | | | | | [place] [address] | | | | + + + + + + + + | Specimen | + + | Body Fluid | + + + + + + + | Performing | Address | City/State/Zipcode | Phone Number | | Organization | | | | + + + + + | [facility] | [address] | [place] [address] | [phone] | + + + + + Albumin, Body Fluid (11/07/2018 15:15 PDT) + + + + + + | Component | Value | Ref Range | Performed | Pathologist | | | | | At | Signature | + + + + + + | Albumin, | 2.0Comment: This is not | g/dL | [facility] | | | Fluid | a appliance installer validated | | LABORATORY | | | | sample type for this | | | | | | method. No | | | | | | referenceranges have | | | | | | been established.Testing | | | | | | performed at [facility], [address] | | [address], | | | | | | [place] [address] | | | | + + + + + + + + | Specimen | + + | Body Fluid | + + + + + + + | Performing | Address | City/State/Zipcode | Phone Number | | Organization | | | | + + + + + | [facility] | [address] | [place] [address] | [phone] | + + + + + Medical Cytology (11/07/2018 15:15 PDT) + + | Specimen | + + | Body Fluid | + + + + + | Narrative | Performed At | + + + | ORDERING | [facility] | | PHYSICIAN:Darell Kowalski MD PATIENT NAME:DARA LOUISE | [employer] | | RAYEGENDER: Alysia : 1995 SPECIMEN(S): A PLEURAL | | | FLUID, RIGHT GROSS DESCRIPTION: 30 ML OF CLOUDY, YELLOW FLUID WITH | | | WHITE FLOATING MATTER IN CYTOLOGY FIXATIVE CLINICAL HISTORY: NO | | | CLINICAL DATA PROVIDED LABORATORY PREPARATIONS: 1 MONOLAYER, 1 | | | CELL BLOCK CYTOLOGIC INTERPRETATION:Pleural effusion:Negative for | | | malignant cells. DESCRIPTION:The preparations contain mesothelial | | | cells, rare inflammatory cells, and acellular proteinaceous | | | material. Atypical cytologic findings are not encountered. SPECIMEN | | | ADEQUACY:Satisfactory for Evaluation PERFORMING LABORATORY:Technical | | | preparation was performed by [facility] [address] [place] [address] | | | [place] [address] (Heel Shaper: Matt Claudio D.O.; | | | CLIA#: [id number]).Professional interpretation was performed by | | | [facility] [address], | | | [place] [address] (Heel Shaper: Daniel Larson M.D.; | | | CLIA#: [id number]).6 Diagnostician: Enrrique Nichols | | | CT([facility])CytotechnologistDiagnostician: Daniel Larson | | | MDPathologistElectronically Signed 11/13/2018 | | |DESCRIPTION: | | |The preparations contain mesothelial cells, rare inflammatory cells, and acellular proteina ceous material. Atypical cytologic findings are not encountered. | | | | | |SPECIMEN ADEQUACY: | | |Satisfactory for Evaluation | | | | | |PERFORMING LABORATORY: | | |Technical preparation was performed by [facility] [address] [place] [address] (Heel Shaper: Matt Claudio D.O.; CLIA#: [id number]). | | |Professional interpretation was performed by [employer], [address] [place] [address] (Heel Shaper: Daniel Larson M.D.; CLIA# : [id number]).6 | | | | | |Diagnostician: Enrrique BROOKS([facility]) | | |Hebrew [place]or | | |Diagnostician: Daniel Larson MD | | |Pathologist | | |Electronically Signed 11/13/2018 | | | | | | | | + + + + +---------+ + + | Performing | Address | City/State/Zipcode | Phone Number | | Organization | | | | + +---------+ + + | [facility] | | | | | [facility] | | | | + +---------+ + + XR Chest PA and Lateral (11/07/2018 13:32 PDT) + + | Specimen | + + | | + + + + + | Narrative | Performed At | + + + | CHEST PA AND LATERAL CLINICAL INFORMATION: Heart failure; | [facility] | | reassess pulmonary edema/pleural effusions. COMPARISON: CT CHEST | | | WITH CONTRAST (11/06/2018); FINDINGS: Right moderate to large | | | pleural effusion seen. This is possibly loculated. There is | | | dense appearance seen at the right lung base, raising the possibility | | | of collapse of the underlying lung. Curvilinear edge identified at | | | the right lung apex, potentially reflecting a pneumothorax. | | | Cardiomediastinal silhouette and osseous structures appear grossly | | | unremarkable. IMPRESSION: Moderate to large right pleural | | | effusion. This is possibly loculated. Dense appearance of the | | | right lung base, raising the possibility of collapsed underlying | | | lung. Curvilinear identified at the right lung apex, potentially | | | reflecting a pneumothorax. Given above findings, consider CT chest | | | examination for definitive assessment. Signed by: Delfin | | | Brian Kay Sign Date/Time: 11/07/2018 1:36 PM | | + + + + + | Procedure Note | + + | Matt, Rad Results In - 11/07/2018 1339 PDT | | CHEST PA AND LATERAL | | | | CLINICAL INFORMATION: | | Heart failure; reassess pulmonary edema/pleural effusions. | | | | COMPARISON: | | CT CHEST WITH CONTRAST (11/06/2018); | | | | FINDINGS: | | Right moderate to large pleural effusion seen. This is possibly | | loculated. There is dense appearance seen at the right lung base, | | raising the possibility of collapse of the underlying lung. | | Curvilinear edge identified at the right lung apex, potentially | | reflecting a pneumothorax. | | | | Cardiomediastinal silhouette and osseous structures appear grossly | | unremarkable. | | | | IMPRESSION: | | Moderate to large right pleural effusion. This is possibly loculated. | | Dense appearance of the right lung base, raising the possibility of | | collapsed underlying lung. | | Curvilinear identified at the right lung apex, potentially reflecting a | | pneumothorax. | | Given above findings, consider CT chest examination for definitive | | assessment. | | | | | | | | | | Signed by: Eliza Lenz, Brian | | Sign Date/Time: 11/07/2018 1:36 PM | + + + +---------+ + + | Performing | Address | City/State/Zipcode | Phone Number | | Organization | | | | + +---------+ + + | [facility] | | | | + +---------+ + + Platelet Count (11/07/2018 4:03 PDT) + + + + + + | Component | Value | Ref Range | Performed | Pathologist | | | | | At | Signature | + + + + + + | Platelet | 185Comment: Testing | 150 - 400 K/uL | [facility] | | | Count | performed at [facility], [address] | | LABORATORY | | | | [address], | | | | | | [place] [address] | | | | + + + + + + + + | Specimen | + + | Blood | + + + + + + + | Performing | Address | City/State/Zipcode | Phone Number | | Organization | | | | + + + + + | [facility] | [address] | [place] [address] | [phone] | + + + + + Lactate Dehydrogenase (11/07/2018 4:03 PDT) + + + + + + | Component | Value | Ref Range | Performed | Pathologist | | | | | At | Signature | + + + + + + | LDH TOTAL | 202Comment: Testing | 120 - 246 U/L | [facility] | | | | performed at [facility];[address] | | LABORATORY | | | | [address];[place] | | | | | | [address] | | | | + + + + + + + + | Specimen | + + | Blood | + + + + + + + | Performing | Address | City/State/Zipcode | Phone Number | | Organization | | | | + + + + + | [facility] | [address] | [place] [address] | [phone] | + + + + + ECHO Complete (11/06/2018 17:14 PDT) + +--------+ + + + | Component | Value | Ref Range | Performed | Pathologist | | | | | At | Signature | + +--------+ + + + | LVEF-TTE | 30 | % | [facility] | | | TRANSTHORAC | | | | | | IC ECHO | | | | | + +--------+ + + + | BASELINE | 148/91 | mmHg | [facility] | | | BLOOD | | | | | | PRESSURE | | | | | + +--------+ + + + | Patient | #153 | | [facility] | | | Weight | | | | | | (lbs) | | | | | + +--------+ + + + | Patient | 5'7" | | [facility] | | | Height | | | | | + +--------+ + + + | Inferior | 2.86 | cm | [facility] | | | Vena Cava | | | | | | Diameter at | | | | | | Expiration | | | | | + +--------+ + + + | RA PRESSURE | 15 | mmHg | [facility] | | + +--------+ + + + | LVIDd | 5.47 | cm | [facility] | | + +--------+ + + + | FS | 12 | % | [facility] | | + +--------+ + + + | LA volume | 67.22 | mL | [facility] | | + +--------+ + + + | Ascending | 2.89 | cm | [facility] | | | aorta | | | | | + +--------+ + + + | AV mean | 5.31 | mmHg | [facility] | | | gradient | | | | | + +--------+ + + + | MV mean | 2.66 | mmHg | [facility] | | | gradient | | | | | + +--------+ + + + | PV peak | 2.15 | mmHg | [facility] | | | gradient | | | | | + +--------+ + + + | LVOT peak | 84.32 | cm/s | [facility] | | | manuel | | | | | + +--------+ + + + | LVOT peak | 14.64 | cm | [facility] | | | VTI | | | | | + +--------+ + + + | AV peak manuel | 151.47 | cm/s | [facility] | | + +--------+ + + + | AV VTI | 28.31 | cm | [facility] | | + +--------+ + + + | AV peak | 9.18 | mmHg | [facility] | | | gradient | | | | | + +--------+ + + + | MV peak | 5.68 | mmHg | [facility] | | | gradient | | | | | + +--------+ + + + | TV peak | 4.87 | mmHg | [facility] | | | gradient | | | | | + +--------+ + + + | PV mean | 1.19 | mmHg | [facility] | | | gradient | | | | | + +--------+ + + + | LA Volume | 37 | mL/m2 | [facility] | | | Index | | | | | + +--------+ + + + | AV LVOT | 2.85 | mmHg | [facility] | | | Peak | | | | | | Gradient | | | | | + +--------+ + + + | AV LVOT | 1.49 | mmHg | [facility] | | | Mean | | | | | | Gradient | | | | | + +--------+ + + + | TR Peak | 58 | mmHg | [facility] | | | Gradient | | | | | + +--------+ + + + | RV Free | 8.94 | cm/s | [facility] | | | Wall Peak | | | | | | S' | | | | | + +--------+ + + + | TR Velocity | 381.52 | cm | [facility] | | + +--------+ + + + | PI Peak | 73.24 | cm/s | [facility] | | | Velocity | | | | | + +--------+ + + + | RV | 3.88 | cm | [facility] | | | Diastolic | | | | | | Basal | | | | | | Diameter | | | | | + +--------+ + + + | LVOT Mean | 56.69 | cm/s | [facility] | | | Velocity | | | | | + +--------+ + + + | RVSP | 73 | mmHg | [facility] | | | Estimated | | | | | + +--------+ + + + | MV | 162.82 | msec | [facility] | | | Deceleratio | | | | | | n Time | | | | | + +--------+ + + + | MV E/A | 1.97 | | [facility] | | | Ratio | | | | | + +--------+ + + + | MV Mean | 77.01 | cm/s | [facility] | | | Velocity | | | | | + +--------+ + + + | MV Peak | 59.12 | cm/s | [facility] | | | A-Wave | | | | | + +--------+ + + + | MV Peak | 116.58 | cm/s | [facility] | | | E-Wave | | | | | + +--------+ + + + | TV | 94.98 | msec | [facility] | | | Deceleratio | | | | | | n Time | | | | | + +--------+ + + + | TV Peak | 0.91 | cm/s | [facility] | | | A-Wave | | | | | + +--------+ + + + | TV Peak | 110.35 | cm/s | [facility] | | | E-Wave | | | | | + +--------+ + + + | PV Mean | 51.8 | cm/s | [facility] | | | Velocity | | | | | + +--------+ + + + | AV Mean | 108.1 | cm/s | [facility] | | | Velocity | | | | | + +--------+ + + + | LA/Aorta | 1.75 | | [facility] | | | Ratio | | | | | + +--------+ + + + | LA Major | 0.2831 | cm | [facility] | | + +--------+ + + + | Heart Rate | 78 | | [facility] | | + +--------+ + + + | Aortic Root | 2.64 | cm | [facility] | | | Diameter | | | | | + +--------+ + + + | IVS | 1.06 | cm | [facility] | | | Diastolic | | | | | | Thickness | | | | | | MM | | | | | + +--------+ + + + | LVPW | 1.17 | cm | [facility] | | | Diastolic | | | | | | Thickness | | | | | | MM | | | | | + +--------+ + + + | IVS | 1.47 | cm | [facility] | | | Systolic | | | | | | Thickness | | | | | | MM | | | | | + +--------+ + + + | LV Systolic | 4.8 | cm | [facility] | | | Diameter | | | | | | MM | | | | | + +--------+ + + + | LVPW | 1.4 | cm | [facility] | | | Systolic | | | | | | Thickness | | | | | | MM | | | | | + +--------+ + + + | AV Cusp | 2.02 | cm | [facility] | | | Seperation | | | | | | MM | | | | | + +--------+ + + + | LA Systolic | 4.62 | cm | [facility] | | | Diameter | | | | | | MM | | | | | + +--------+ + + + + + | Specimen | + + | | + + + + + | Narrative | Performed At | + + + | | [facility] | | Mildly dilated left ventricle. | | | Severely reduced left ventricular systolic function. | | | The left ventricular ejection fraction is 30%. | | | Moderately dilated right ventricle. | | | Normal right ventricular systolic function. | | | Mild to moderate eccentric mitral regurgitation. | | | Moderate to severe central tricuspid regurgitation. | | | There is severe pulmonary hypertension. | | | Estimated right ventricular systolic pressure (RVSP) is 73 mmHg. | | | There is a left pleural effusion. | | + + + + +---------+ + + | Performing | Address | City/State/Zipcode | Phone Number | | Organization | | | | + +---------+ + + | [facility] | | | | + +---------+ + + XR Chest Inspiration and Expiration (10/18/2018 17:02 PDT) + + | Specimen | + + | | + + + + + | Impressions | Performed At | + + + | 1. Interval decrease in volume of the large right pleural effusion | | | consistent with the history of thoracentesis 2. No pneumothorax to | | | suggest complication of the procedure 3. Persistent cardiomegaly with | | | CHF pattern Signed by: Eliza Coy, Van Sign Date/Time: | | | 10/18/2018 6:05 PM | | + + + + + + | Narrative | Performed At | + + + | CHEST INSPIRATION OR EXPIRATION ONLY CLINICAL INFORMATION: Post | | | thoracentesis. COMPARISON: US THORACENTESIS WITH IMAGING GUIDANCE | | | (10/18/2018); XR CHEST 1 VIEW (10/17/2018); CHEST TWO VIEWS [id number] | | | (10/17/2018); FINDINGS: Compared to [...] Note | + + | Matt, Rad Conversion - 11/09/2018 0932 PDT CHEST INSPIRATION OR EXPIRATION ONLY | | CLINICAL INFORMATION: | | Post thoracentesis. | | COMPARISON: | | US THORACENTESIS WITH IMAGING GUIDANCE (10/18/2018); XR CHEST 1 VIEW | | (10/17/2018); CHEST TWO VIEWS [id number] (10/17/2018); | | FINDINGS: | | Compared [...] Date/Time: 10/18/2018 6:05 PM | + + External Lab: CBC (10/18/2018 5:44 PDT) + + +--- + + + | Component | Value | Re f Range | Performed | Pathologist | | | | | At | Signature | + + +--- + + + | WBC | 5.73 | 3. 80 - 11.00 | EXTERNAL | | | | | K/ uL | LAB | | + + +--- + + + | RED CELL | 3.24 (L) | 3. 70 - 5.10 | EXTERNAL | | | COUNT | | M/ uL | LAB | | + + +--- + + + | Hgb | 11.7 | 11 .3 - 15.5 | EXTERNAL | | | | | g/ dL | LAB | | + + +--- + + + | Hematocrit, | 35.3 | 34 .0 - 46.0 % | EXTERNAL | | | POC | | | LAB | | + + +--- + + + | MCV | 109.1 (H) | 80 .0 - 100.0 fl | EXTERNAL | | | | | | LAB | | + + +--- + + + | MCH | 36.2 (H) | 27 .0 - 34.0 pg | EXTERNAL | | | | | | LAB | | + + +--- + + + | MCHC | 33.1 | 32 .0 - 35.5 | EXTERNAL | | | | | g/ dL | LAB | | + + +--- + + + | RDW-CV | 56.4 (H) | 37 - 53 fl | EXTERNAL | | | | | | LAB | | + + +--- + + + | Platelet | 156 | 15 0 - 400 K/uL | EXTERNAL | | | Count | | | LAB | | | Plasma | | | | | + + +--- + + + | MPV | 10.0 | fl | EXTERNAL | | | | | | LAB | | + + +--- + + + | Differentia | AUTOMATED | | EXTERNAL | | | l Type | | | LAB | | + + +--- + + + | % | 65.19 | % | EXTERNAL | | | Neutrophils | | | LAB | | + + +--- + + + | % | 16.92 | % | EXTERNAL | | | Lymphocytes | | | LAB | | + + +--- + + + | % Monocytes | 6.14 | % | EXTERNAL | | | | | | LAB | | + + +--- + + + | % | 10.47 | % | EXTERNAL | | | Eosinophils | | | LAB | | + + +--- + + + | % Basophils | 1.28 | % | EXTERNAL | | | | | | LAB | | + + +--- + + + | Absolute | 3.73 | 1. 90 - 7.40 | EXTERNAL | | | Neutrophils | | K/ uL | LAB | | + + +--- + + + | Absolute | 0.97 (L) | 1. 00 - 3.90 | EXTERNAL | | | Lymphocytes | | K/ uL | LAB | | + + +--- + + + | Absolute | 0.35 | 0. 00 - 0.80 | EXTERNAL | | | Monocytes | | K/ uL | LAB | | + + +--- + + + | Absolute | 0.60 (H) | 0. 00 - 0.50 | EXTERNAL | | | Eosinophils | | K/ uL | LAB | | + + +--- + + + | Absolute | 0.07 | 0. 00 - 0.10 | EXTERNAL | | | Basophils | | K/ uL | LAB | | + + +--- + + + | RBC | 2+Comment: | | EXTERNAL | | | Morphology | MACRO1+ANISONORMAL PLT | | LAB | | | | MORPHTesting performed | | | | | | at [facility], [address] | | | | | | [facility], | | | | | | [place] [address] | | | | | |Testing performed at [facility], [address] [facility], [place] [address] | | | | | | | | | | + + +--- + + + + + | Specimen | + + | Blood | + + + +---------+ + + | Performing | Address | City/State/Zipcode | Phone Number | | Organization | | | | + +---------+ + + | EXTERNAL LAB | | | | + +---------+ + + CK Total (10/17/2018 18:05 PDT)Only the most recent of 2 results within the time period is included. + + + + + + | Component | Value | Ref Range | Performed | Pathologist | | | | | At | Signature | + + + + + + | CK, Total | 443 (H)Comment: Testing | 30 - 240 U/L | EXTERNAL | | | | performed at [facility];[address] | | LAB | | | | [address];[place], [place] | | | | | | [address] | | | | + + + + + + + + | Specimen | + + | Blood | + + + +---------+ + + | Performing | Address | City/State/Zipcode | Phone Number | | Organization | | | | + +---------+ + + | EXTERNAL LAB | | | | + +---------+ + + XR Chest 1 Vw (10/17/2018 3:57 PDT) + + | Specimen | + + | | + + + + + | Impressions | Performed At | + + + | Cardiomegaly with pulmonary edema and large right pleural effusion. | | | Signed by: Eliza Echols, Fely Sign Date/Time: 10/17/2018 4:25 AM | | + + + + + + | Narrative | Performed At | + + + | [facility] CLINICAL INFORMATION: Shortness of breath, | | | primarily right-sided, for several days. COMPARISON: XR CHEST 2 VIEW | | | FRONTAL AND LATERAL (08/22/2018); XR CHEST 2 VIEW FRONTAL AND LATERAL | | | (08/21/2018); FINDINGS: Cardiomegaly with findings of pulmonary | | | edema with large right pleural effusion. No pneumothorax. Bones | | | unremarkable. | | + + + + + | Procedure Note | + + | Matt, Rad Conversion - 11/09/2018 0932 PDT [facility] | | CLINICAL [...] Date/Time: 10/17/2018 4:25 AM | + + HISTORICAL LAB PANEL RESULT (10/17/2018 3:49 PDT) + + + + + + | Component | Value | Ref Range | Performed | Pathologist | | | | | At | Signature | + + + + + + | WBC | 6.63 | 3.80 - 11.00 | EXTERNAL | | | | | K/uL | LAB | | + + + + + + | RED CELL | 3.07 (L) | 3.70 - 5.10 | EXTERNAL | | | COUNT | | M/uL | LAB | | + + + + + + | Hgb | 10.9 (L) | 11.3 - 15.5 | EXTERNAL | | | | | g/dL | LAB | | + + + + + + | Hematocrit, | 32.7 (L) | 34.0 - 46.0 % | EXTERNAL [...] MCHC | 33.4 | 32.0 - 35.5 | EXTERNAL | | | | | g/dL | LAB | | + + + + + + | RDW-CV | 56.4 (H) | 37 - 53 fl | EXTERNAL | | | | | | LAB | | + + + + + + | Platelet | 158 | 150 - 400 K/uL | EXTERNAL | | | Count | | | LAB | | | Plasma | | | | | + + + + + + | MPV | 10.2 | fl | EXTERNAL | | | | | | LAB | | + + + + + + | Differentia | AUTOMATED | | EXTERNAL | | | l Type | | | LAB | | + + + + + + | % | 70.67 | % | EXTERNAL | | | Neutrophils | | | LAB | | + + + + + + | % | 15.06 | % | EXTERNAL | | | Lymphocytes | | | LAB | | + + + + + + | % Monocytes | 3.99 | % | EXTERNAL | | | | | | LAB | | + + + + + + | % | 9.11 | % | EXTERNAL | | | Eosinophils | | | LAB | | + + + + + + | % Basophils | 1.17 | % | EXTERNAL | | | | | | LAB | | + + + + + + | Absolute | 4.68 | 1.90 - 7.40 | EXTERNAL | | | Neutrophils | | K/uL | LAB | | + + + + + + | Absolute | 1.00 | 1.00 - 3.90 | EXTERNAL | | | Lymphocytes | | K/uL | LAB | | + + + + + + | Absolute | 0.26 | 0.00 - 0.80 | EXTERNAL | | | Monocytes | | K/uL | LAB | | + + + + + + | Absolute | 0.60 (H) | 0.00 - 0.50 | EXTERNAL | | | Eosinophils | | K/uL | LAB | | + + + + + + | Absolute | 0.08 | 0.00 - 0.10 | EXTERNAL | | | Basophils | | K/uL | LAB | | + + + + + + | RBC | 2+ | | EXTERNAL | | | Morphology | Comment: | | LAB | | | | MACRO | | | | | | NORMAL PLT MORPH | | | | | | 1+ | | | | | | ANISO | | | | | | | | | | + + + + + + | Platelet | ADEQUATE | | EXTERNAL | | | Estimate | | | LAB | | + + + + + + | Na | 142 | 135 - 145 | EXTERNAL | | | | | mmol/L | LAB | | + + + + + + | K | 5.5 (H)Comment: SLT | 3.5 - 4.9 | EXTERNAL | | | | HEMOLYSIS | mmol/L | LAB | | + + + + + + | Cl | 104 | 99 - 109 mmol/L | EXTERNAL | | | | | | LAB | | + + + + + + | CO2 | 17 (L) | 23 - 32 mmol/L | EXTERNAL | | | | | | LAB | | + + + + + + | Anion Gap | 27 (H) | 5 - 20 mmol/L | EXTERNAL | | | | | | LAB | | + + + + + + | Glucose, | 91 | 65 - 99 mg/dL | EXTERNAL | | | Fasting | | | LAB | | + + + + + + | BUN | 89 (H)Comment: SLT | 8 - 25 mg/dL | EXTERNAL | | | | HEMOLYSIS | | LAB | | + + + + + + | Creatinine | 14.52 (H) | 0.50 - 1.00 | EXTERNAL | | | | | mg/dL | LAB | | + + + + + + | BUN/Creatin | 6 | | EXTERNAL | | | ine Ratio | | | LAB | | + + + + + + | Calcium | 8.9 | 8.5 - 10.5 | EXTERNAL | | | | | mg/dL | LAB | | + + + + + + | Protein, | 6.5 | 6.3 - 8.2 g/dL | EXTERNAL | | | Total | | | LAB | | + + + + + + | Albumin | 4.0 | 3.6 - 5.0 g/dL | EXTERNAL | | | | | | LAB | | + + + + + + | Globulin | 2.5 | 1.3 - 4.9 g/dL | EXTERNAL | | | | | | LAB | | + + + + + + | A/G Ratio | 1.6 | 1.0 - 2.4 | EXTERNAL | | | | | | LAB | | + + + + + + | Bilirubin | 0.6 | 0.1 - 1.5 mg/dL | EXTERNAL | | | Total | | | LAB | | + + + + + + | ALP, | 85 | 35 - 115 U/L | EXTERNAL | | | External | | | LAB | | + + + + + + | AST | 40 | 10 - 45 U/L | EXTERNAL | | | | | | LAB | | + + + + + + | ALT | 31 | 10 - 65 U/L | EXTERNAL | | | | | | LAB | | + + + + + + | Estimated | 3 (L)Comment: GFR <60: | mL/min/1.73m2 | EXTERNAL [...] traceable | | | | | | equation. | | | | + + + + + + | CK, Total | 690 (H)Comment: SLT | 30 - 240 U/L | EXTERNAL | | | | HEMOLYSIS | | LAB | | + + + + + + | INR | 1.2Comment: REFERENCE | | EXTERNAL | | | | RANGE:0.9 - | | LAB | | | | 1.2 NON-ANTICOAGULATE | | | | | | D2.0 - 3.0 ALL OTHER | | | | | | THERAPEUTIC | | | | | | INDICATIONS2.5 - 3.5 | | | | | | MECHANICAL HEART VALVES, | | | | | | RECURRENT OR SYSTEMIC | | | | | | EMBOLISM | | | | + + + + + + | aPTT, | 23 | 23 - 32 seconds | EXTERNAL | | | Patient | | | LAB | | + + + + + + | CK-MB | 17.8 (H) | 0.5 - 3.6 ng/mL | EXTERNAL | | | | | | LAB | | + + + + + + | CK-MB Index | UNABLE TO | | EXTERNAL | | | | CALCULATEComment: | | LAB | | | | Testing performed at | | | | | | [facility];[address] [place] [address] | | | | | | Blvd;[place] [address] | | | | + + + + + + + + | Specimen | + + | | + + + +---------+ + + | Performing | Address | City/State/Zipcode | Phone Number | | Organization | | | | + +---------+ + + | EXTERNAL LAB | | | | + +---------+ + + B Type Natriuretic Peptide (10/17/2018 3:49 PDT) + + + + + + | Component | Value | Ref Range | Performed | Pathologist | | | | | At | Signature | + + + + + + | BNP | 1,151.26 (H)Comment: | 0 - 100 pg/mL | EXTERNAL | | | | Testing performed at | | LAB | | | | [facility];[address] | | | | | | [address];[place] [address] | | | | + + + [...] +--------+ +---------+--------+ | MEDICARE | MEDICA | [id number] | 05/05/19 | [phone] | | Medica | | | RE | | 13-Pre | 5 | | re | | | PART A | | sent | | | | | | AND B | | | | | | + +--------+ +--------+ +---------+--------+ | MEDICARE | MEDICA | [id number] | 05/05/19 | [phone] | | Medica | | | RE | | 13-Pre | 5 | | re | | | PART A | | sent | | | | | | AND B | | | | | | + +--------+ +--------+ +---------+--------+ | [employer] | MODA | [id number] | | [phone] | | Medica | | MEDICAID HMO | HEALTH | | 019-Pr | 1 | | id | | | MDCD | | esent | | | | | | [place]MO [place] | | | | | | + +--------+ +--------+ +---------+--------+ | [employer] | MODA | [id number] | | [phone] | | Medica | | MEDICAID HMO [...] + +--------+ +--------+ + + | Dara Louise | Person | Self | [birth year] | | APT | | | al/Fam | | 1994 | [phone] | [address] [place] | | | [place] | | | 2 (Home) | [address] | + +--------+ +--------+ + + | Dara Louise | Person | Self | [birth year] | | [address] | | | al/Fam | | 1994 | [phone] | [address] [place] | | | [place] | | | 2 (Home) | [address] | + +--------+ +--------+ + + | Cory Louise | Josh | Father | [birth year] | [address] | | | al/Fam | | 1971 | [phone] | [employer] [place] [address] | | | [place] | | | 9 (Home) | | + +--------+ +--------+ + + Advance Directives Patient has advance care planning documents, and code status on file. For more information, please contact:[facility] [place] [facility] [place] [address] + + + + + | Code Status | Date | Date | Comments | | | Activated | Inactivated | | + + + + + | Full Code | 12/11/2018 | 12/14/2018 | | | | 7:19 | 15:39 | | + + + + + + + + +---+ | | | | | + + + +---+ | Full Code | 11/07/2018 | 11/09/2018 | | | | 19:17 | 16:32 | | + + + +---+ + + + +---+ | | | | | + + + +---+ | Full Code | 10/19/2018 | 10/22/2018 | | | | 13:41 | 19:31 | | + + + +---+ + + + +---+ | | | | | + + + +---+ | Full Code | 02/24/2014 | 02/24/2014 | | | | 11:17 | 14:29 | | + + + +---+
--- OUTSIDE RECORDS SUMMARY | ~2019-01-02 | XMS | Encounter Summary ---
Demographics + + + | Address | [address] | | | [place] [address] | + + + | Home Phone [...] | | | | | [place] [address] | | + + + + + | Thania Mallory | ECON | [address] | | | | | [place] [address] | | + + + + + | Deidra Weldon | ECON | [address] | | | | | [place] | | | | | [address] | | + + + + + Care Team Providers + +------+ + | Care Mica Plate Layer Name | Role | Phone | + [...] | | Nephrology at | MD Emanuel [address] | | | | | [place] | [address] | | | | | [facility] | [place], [place] | | | | | [address] | [address] | | | | | Caro [address] Mailcode: | [phone] | | | | | [address] | | | | | | [place], [place] | | | | | | [address] | | | | | | [phone] | | | +--------+ + + + [...] Denise | | | | | | [place], [place] | | | | | | [address] | | | | | | [phone] | | | | | | | [...] | [address] | [place] [address] | [phone] | | HOSPITAL | | | | + + + + + PEDS NEPHROLOGY EXTERNAL RESULTS PANEL (04/13/2016) + + [...] [address] | [place] [address] | [phone] | | HOSPITAL | | | | [...] [address] | [place] [address] | [phone] | | HOSPITAL | | | | + + + + + CIRILO NEPHROLOGY EXTERNAL RESULTS PANEL (02/10/2016) + + [...] + | HEMOGLOBIN | 10.4 (A) | 121999 - 15 | BLUE [...] | [address] | [place] [address] | [phone] | | HOSPITAL | | | | + + + + + PEDEdil NEPHROLOGY EXTERNAL RESULTS PANEL (01/13/2016) + + [...] | [address] | [place] [address] | [phone] | | HOSPITAL | | | | [...] + | HEMOGLOBIN | 12.1 (A) | 12 - 15 | BLUE | | | [...] | [address] | [place] [address] | [phone] | | HOSPITAL | | | | + + + + + documented in this encounter Visit Diagnoses Not on filedocumented in this encounter"
--- OUTSIDE RECORDS SUMMARY | ~2019-01-02 | XMS | Encounter Summary ---
Demographics + + + | Address | [address] | | | [place] [address] | + + + | Home Phone | | + + + | Preferred Language | Unknown | + + + | Marital Status | Single | + + + | Jew Affiliation | Unknown | + + + [...] | | | | | [place] [address] | | + + + + + | Thania Mallory | ECON | [address] | | | | | [place] [address] | | + + + + + | Deidra Weldon | ECON | [address] | | | | | [place] | | | | | [address] | | + + + + + Care Team Providers + +------+ + | Care Oil Pipe Inspector Name | Role | Phone | [...] | | | | | [place], | | | | | | [place] [address] | | | +--------+ + + + [...] Denise | | | | | | [place], [place] | | | | | | [address] | | | | | | [phone] | | | | | | | [...] + + | DANILO - | [address], | [place] [address] | | | IMMUNOGENETICS/TRANS | [address] | | | | [facility] | | | | + + + + + documented in this encounter Visit Diagnoses Not on filedocumented in this encounter"
--- OUTSIDE RECORDS SUMMARY | ~2019-01-02 | XMS | Encounter Summary ---
Demographics + + + | Address | [address] | | | [place] [address] | + + + | Home Phone [...] | | | | | [place] [address] | | + + + + + | Thania Mallory | ECON | [address] | | | | | [place] [address] | | + + + + + | Deidra Weldon | ECON | [address] | | | | | [place] | | | | | [address] | | + + + + + Care Team Providers + +------+ + | Care Integration Technician Name | Role | Phone | [...] + + | 03/05/ | Documentati | Transplant | Kelsi Martinez, | Unos Listing (ABO | | 2013 | on | Coordinators [address] | RN [address] | VERIFICATION) | | | | [facility] | [facility] | | | | | Rd [place], [place] | [place], [place] | | | | | [address] | [address] | | | | | [phone] | | | +--------+ + + + [...] Denise | | | | | | [place] | | | | | | [address] | | | | | | [phone] | | | | | | | | +--------+ + + + + documented as of this encounter Visit Diagnoses Not on filedocumented in this encounter"
--- OUTSIDE RECORDS SUMMARY | ~2019-01-02 | XMS | Encounter Summary ---
Demographics + + + | Address | [address] | | | [place] [address] | + + + | Home Phone | | + + + | Preferred Language | Unknown | + + + | Marital Status | Single | + + + | Buddhism Affiliation | Unknown | + + + [...] | | | | | [place] [address] | | + + + + + | Thania Mallory | ECON | [address] | | | | | [place] [address] | | + + + + + | Deidra Weldon | ECON | [address] | | | | | [place] | | | | | [address] | | + + + + + Care Team Providers + +------+ + | Care Shipboard Intelligence Analyst Name | Role | Phone | [...] Coordinators [address] | RN [address] [facility] | | | | | [address] [facility] | [facility] | | | | | Rd [place], [place] | [place], [place] | | | | | [address] | [address] | | | | | [phone] | | | +--------+ + + + [...] Denise | | | | | | [employer], [place] | | | | | | [address] | | | | | | [phone] | | | | | | | | +--------+ + + + + documented as of this encounter Visit Diagnoses Not on filedocumented in this encounter"
--- OUTSIDE RECORDS SUMMARY | ~2019-01-02 | XMS | Encounter Summary ---
Demographics + + + | Address | [address] | | | [place] [address] | + + + | Home Phone [...] + | Author | [facility] (Historical as of | | | 10-20-18) | + + + | Organization | [facility] (Historical as of | | | 10-20-18) [...] Team Providers + +------+ + | Care Rail Loader Name | Role | Phone | + +------+ + | Jonathan Alonso MD | PCP | | + +------+ + Encounter Details +--------+ + + + + | Date | Type | Department | Care Team | Description | +--------+ + + + + | 10/02/ | Orders Only | [facility] | Halima Guzmán, | | | 2019 | | Pulmonology [address] | APPLICATION SECURITY CONSULTANT | | | | | Shantelle PRAJAPATI | | | | | | [place] | | | | | | [address] | | | | | | [phone] | | | +--------+ + + + [...] Treatment Not on fileas of this encounter Visit Diagnoses Not on filein this encounter"
--- OUTSIDE RECORDS SUMMARY | ~2019-01-02 | XMS | Encounter Summary ---
Demographics + + + | Address | [address] | | | [place] [address] | + + + | Home Phone [...] | | | | | [place] [address] | | + + + + + | Thania Mallory | ECON | [address] | | | | | [place] [address] | | + + + + + | Deidra Weldon | ECON | [address] | | | | | [place] | | | | | [address] | | + + + + + Care Team Providers + +------+ + | Care Chalk Cutter Name | Role | Phone | [...] (Primary Dx) | | | | [facility] | [place], [place] | | | | | [address] | [address] | | | | | [address] Mailcode: | [phone] | | | | | [address] | | | | | | [place], [place] | | | | | | [address] | | | | | | [phone] | | | +--------+ + + + [...] Denise | | | | | | [place], [place] | | | | | | [address] | | | | | | [phone] | | | | | | | [...] | e | 1:18 PM | MEDICARE [address] | procedure are in the | | | | PST | ([facility]on[facility] | results section. | | |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 | | | | | | Hemodialysis status | | | | | | ([facility]) Chronic | | | | | | kidney disease, | | | | | | stage V ([facility]) | | + +--------+ + + + documented in this encounter Visit Diagnoses + + | Diagnosis | + + | End-stage renal disease (HCC) - Primary End stage renal disease | + + documented in this encounter"
--- OUTSIDE RECORDS SUMMARY | ~2019-01-02 | XMS | Encounter Summary ---
Demographics + + + | Address | [address] | | | [place] [address] | + + + | Home Phone [...] | | | | | [place] [address] | | + + + + + | Thania Mallory | ECON | [address] | | | | | [place] [address] | | + + + + + | Deidra Weldon | ECON | [address] | | | | | [place] | | | | | [address] | | + + + + + Care Team Providers + +------+ + | Care Substation Electrician Supervisor Name | Role | Phone | [...] | | Jonathan Gallagher, | [address] | | | | | | [address] | [address] | | | | | | Keven | [address] | | | | | | [facility] | Rd Mailcode: | | | | | | [address] | [address] | | | | | | [address] | [place] | | | | | | [place], | [place], [place] | | | | | | [place] | [address] | | | | | | [address] | Phone: | | | | | | Phone: | [phone] | | | | | | [phone] | | | | | | | Fax: | | | | | | | [phone] | | +--------+--------+ + + + + Encounter Details +--------+---------+ + + + | Date | Type | Department | Care Team | Description | +--------+---------+ + + + | 11/16/ | Office | Specialty Clinics | Sudhakar Joy | 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 Have your friend call Brittney about [phone] Sudhakar Joy MD documented in this encounter [...] been on dialysis for three years. Sh e has not been listed due to Marijuana [...] MD [facility] [address] Mail code [facility] [place], [place] [address] documented in this encounter Plan of Treatment +--------+ + + + + | Date | Type | Specialty | Care Team | Description | +--------+ + + + + | 05/04/ | Hospital | Adult Acute Care | El Starr MD | | | 2022 | Encounter | | [address] | | | | | | [place], [place] | | | | | | [address] | | | | | | [phone] | | | | | | | [...]
--- OUTSIDE RECORDS SUMMARY | ~2019-01-02 | XMS | Encounter Summary ---
Demographics + + + | Address | [address] | | | [place] [address] | + + + | Home Phone | | + + + | Preferred Language | Unknown | + + + | Marital Status | Single | + + + | Adventist Affiliation | Unknown | + + + | Race | Unknown | + + + | Ethnic Group | Unknown | + + + Author + + + | Author | [facility] | | | and [place]ana | + + + | Organization | [facility] | | | and [...] Team Providers + +------+ + | Care Climatology Teacher Name | Role | Phone | + +------+ + | Jonathan Alonso MD | PCP | | + +------+ + Reason for Visit +--------+ + | Reason | Comments | +--------+ + | DME | OXYGEN | +--------+ + Encounter Details +--------+ + + + + | Date | Type | Department | Care Team | Description | +--------+ + + + + | 11/13/ | Telephone | [facility] | Silvia Rabago | DME (OXYGEN) | | 2019 | | [address] | [address] | | | | | [place] | | | | | | [address] | | | | | | [phone] | | | +--------+ + + + [...] | | | | | [place] [address] | | | | | | [phone] | | | | | | | | +--------+---------+ + + + documented as of this encounter Visit Diagnoses Not on filedocumented in this encounter"
--- OUTSIDE RECORDS SUMMARY | ~2019-01-02 | XMS | Encounter Summary ---
Demographics + + + | Address | [address] | | | [place] [address] | + + + | Home Phone [...] | | | | | [place] [address] | | + + + + + | Thania Mallory | ECON | [address] | | | | | [place] [address] | | + + + + + | Deidra Weldon | ECON | [address] | | | | | [place] | | | | | [address] | | + + + + + Care Team Providers + +------+ + | Care Upper Stitcher Name | Role | Phone | + [...] Telephone | Pediatric | Sudhakar Joy | Lamonte | | 2015 | | Nephrology at | MD Emanuel [address] | | | | | [place] | [address] | | | | | [facility] | [place], [place] | | | | | [address] | [address] | | | | | Caro [address] Mailcode: | [phone] | | | | | [address] | | | | | | [place], [place] | | | | | | [address] | | | | | | [phone] | | | +--------+ + + + [...] [place] | | | | | | [address] | | | | | | [phone] | | | | | | | | +--------+ + + + + documented as of this encounter Visit Diagnoses Not on filedocumented in this encounter"
--- OUTSIDE RECORDS SUMMARY | ~2019-01-02 | XMS | Encounter Summary ---
Demographics + + + | Address | [address] | | | [place] [address] | + + + | Home Phone [...] | | | | | [place] [address] | | + + + + + | Thania Mallory | ECON | [address] | | | | | [place] [address] | | + + + + + | Deidra Weldon | ECON | [address] | | | | | [place] | | | | | [address] | | + + + + + Care Team Providers + +------+ + | Care Leasing Manager Name | Role | Phone | + +------+ + | No Pcp Per Patient | PCP | Unavailable | + +------+ + Encounter Details +--------+ + + + + | Date | Type | Department | Care Team | Description | +--------+ + + + + | 10/14/ | Orders Only | Transplant | Kelsi Martinez, | | | 2013 | | Coordinators [address] | RN [address] | | | | | [address] [facility] | [facility] | | | | | Rd [place], [place] | [place], [place] | | | | | [address] | [address] | | | | | [phone] | | | +--------+ + + + [...] Denise | | | | | | [place], [place] | | | | | | [address] | | | | | | [phone] | | | | | | | | +--------+ + + + + documented as of this encounter Visit Diagnoses Not on filedocumented in this encounter"
--- OUTSIDE RECORDS SUMMARY | ~2019-01-02 | XMS | Encounter Summary ---
Demographics + + + | Address | [address] | | | [place] [address] | + + + | Home Phone [...] | | | | | [place] [address] | | + + + + + | Thania Mallory | ECON | [address] | | | | | [place] [address] | | + + + + + | Deidra Weldon | ECON | [address] | | | | | [place] | | | | | [address] | | + + + + + Care Team Providers + +------+ + | Care Can Sterilizer Name | Role | Phone | + [...] | | Nephrology at | MD Emanuel [address] | | | | | [place] | [address] | | | | | [facility] | [place], [place] | | | | | [address] | [address] | | | | | Car[address] Mailcode: | [phone] | | | | | [address] | | | | | | [place], [place] | | | | | | [address] | | | | | | [phone] | | | +--------+--------+ + + + [...] | | | | | | [place], [place] | | | | | | [address] | | | | | | [phone] | | | | | | | | +--------+ + + + + documented as of this encounter Visit Diagnoses Not on filedocumented in this encounter"
--- OUTSIDE RECORDS SUMMARY | ~2019-01-02 | XMS | Encounter Summary ---
Demographics + + + | Address | [address] | | | [place] [address] | + + + | Home Phone [...] + | Author | [facility] | | | and [place] | + + + | Organization | [facility] | | | and [...] Team Providers + +------+ + | Care Cooker Tender Name | Role | Phone | + +------+ + | Jonathan Alonso MD | PCP | | + +------+ + Reason for Visit +--------+ + | Reason | Comments | +--------+ + | DME | parviz sexton IHM | +--------+ + Encounter Details +--------+ + + + + | Date | Type | Department | Care Team | Description | +--------+ + + + + | 11/12/ | Telephone | [facility] | Silvia Rabago | DME (carlie, cmn, | | 2018 | | [address] | [address] | [facility]) | | | | [place] | | | | | | [address] | | | | | | [phone] | | | +--------+ + + + [...] [address] | | | | | | [place] [address] | | | | | | [phone] | | | | | | | | +--------+---------+ + + + documented as of this encounter Visit Diagnoses Not on filedocumented in this encounter"
--- OUTSIDE RECORDS SUMMARY | ~2019-01-02 | XMS | Encounter Summary ---
Demographics + + + | Address | [address] | | | [place] [address] | + + + | Home Phone [...] | | | | | [place] [address] | | + + + + + | Thania Mallory | ECON | [address] | | | | | [place] [address] | | + + + + + | Deidra Weldon | ECON | [address] | | | | | [place] | | | | | [address] | | + + + + + Care Team Providers + +------+ + | Care Proposal Development Manager Name | Role | Phone | [...] Hoffmann | | | | | [facility] | [facility] | | | | | [address] [place], [place] | [place], [place] | | | | | [address] | [address] | | | | | [phone] | | | +--------+ + + + [...] Denise | | | | | | [place] | | | | | | [address] | | | | | | [phone] | | | | | | | | +--------+ + + + + documented as of this encounter Visit Diagnoses Not on filedocumented in this encounter"
--- OUTSIDE RECORDS SUMMARY | ~2019-01-02 | XMS | Encounter Summary ---
Demographics + + + | Address | [address] | | | [place] [address] | + + + | Home Phone [...] Author + + + | Author | [facility] | + + + | Organization | [facility] | + + + | Address | Unknown | + + + | Phone | Unavailable | + + + Support + + + + + | Name | Relationship | Address | Phone | + + + + + | Cory Weldon | ECON | [address] | | | | | [place] [address] | | + + + + + | Thania Mallory | ECON | [address] | | | | | [place] [address] | | + + + + + | Deidra Weldon | ECON | [address] | | | | | [place] | | | | | [address] | | + + + + + Care Team Providers + +------+ + | Care Unix Analyst Name | Role | Phone | [...] | consultation (pt | | | | [address] [facility] | [facility] [address] | potential | | | | Rd [place], [place] | [place], [place] | donor/checking in | | | | [address] | [address] | with SW) | | | | [phone] | | | +--------+ + + + [...] [facility] | | | | | | [address] | | | | | | [phone] | | | | | | | | +--------+ + + + + documented as of this encounter Visit Diagnoses Not on filedocumented in this encounter"
--- OUTSIDE RECORDS SUMMARY | ~2019-01-02 | XMS | Encounter Summary ---
Demographics + + + | Address | [address] | | | [place] [address] | + + + | Home Phone [...] | | | | | [place] [address] | | + + + + + | Thania Mallory | ECON | [address] | | | | | [place] [address] | | + + + + + | Deidra Weldon | ECON | [address] | | | | | [place] | | | | | [address] | | + + + + + Care Team Providers + +------+ + | Care Manufacturing Intern Name | Role | Phone | + +------+ + | Shahid Camargo MD | PCP | | + +------+ + Encounter Details +--------+ + + + + | Date | Type | Department | Care Team | Description | +--------+ + + + + | 12/20/ | Hospital | Cardiac | Sjh, Car Ecg Tech | | | 2013 | Encounter | Non-Invasive Testing | [address] | | | | | at [facility] | [facility] | | | | | [address] | [place] [address] | | | | | [facility] | | | | | | Mailcode: [id number] [facility] | | | | | | [facility] | | | | | | [facility] | | | | | | [place] [address] | | | | | | [phone] | | | +--------+ + + + [...] Denise | | | | | | [place], [place] | | | | | | [address] | | | | | | [phone] | | | | | | | [...] | e | 11:49 AM | MEDICARE [id number] | procedure are in the | | [...] view image for the detailed interpretation from [facility] results. | CARDIOLOGY | + + + + + | Procedure Note | + + | Interface, Cardiology Results - 12/21/2012 9:38 AM PDT Please click on view image | | for the detailed interpretation from [facility] results. 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
--- OUTSIDE RECORDS SUMMARY | ~2019-01-02 | XMS | Encounter Summary ---
Demographics + + + | Address | [address] | | | [place] [address] | + + + | Home Phone [...] | | | | | [place] [address] | | + + + + + | Thania Mallory | ECON | [address] | | | | | [place] [address] | | + + + + + | Deidra Weldon | ECON | [address] | | | | | [place] | | | | | [address] | | + + + + + Care Team Providers + +------+ + | Care Flame Channeler Name | Role | Phone | + [...] Rd | | | | | [facility] | [place], [place] | | | | | [address] | [address] | | | | | [address] Mailcode: | [phone] | | | | | [address] | | | | | | [place], [place] | | | | | | [address] | | | | | | [phone] | | | +--------+ + + + [...] Denise | | | | | | [place], [place] | | | | | | [address] | | | | | | [phone] | | | | | | | | +--------+ + + + + documented as of this encounter Procedures + +--------+ + + + | Procedure Name | Priori | Date/Time | Associated Diagnosis | Comments | | | ty | | | | + +--------+ + + + | [facility] | Routin | 03/21/2013 | | Results for this | | EXTERNAL RESULTS | e | 4:09 PM | | procedure are in the | | PANEL | | PST | | results section. | + +--------+ + + + documented in this encounter Results PEDS NEPHROLOGY EXTERNAL RESULTS PANEL (03/21/2013 4:09 PM [...] | | | (LAB) | | | [facility] | | + [...] | | | (LAB) | | | [facility] | | + + + + + + | SODIUM, | 137 | mmol/L | [facility] | | | PLASMA | | | LAB - | | | (LAB) | | | [facility] | | + + + + + + | POTASSIUM, | 3.5 (A) | 3.6 - 5.1 | [facility] | | | PLASMA | | mmol/L | LAB - | | | (LAB) | | | [facility] | | + + + + + + | CHLORIDE, | 97 | mmol/L | [facility] | | | PLASMA | | | LAB - | | | (LAB) | | | [facility] | | + + + + + + | TOTAL CO2, | 26 | mmol/L | [facility] | | | PLASMA | | | LAB - | | | (LAB) | | | [facility] | | + + + + + + | CALCIUM, | 8.7 | 8.4 - 10.2 | [facility] | | | PLASMA | | mg/dL | LAB - | | | (LAB) | | | [facility] | | + + + + + + | PHOSPHORUS, | 7.4 (A) | 2.5 - 5.0 mg/dL | [facility] | | | PLASMA | | | LAB - | | | (LAB) | | | [facility] | | + + + + + + | ALBUMIN, | 3.4 (A) | 3.5 - 5.0 g/dL | [facility] | | | PLASMA | | | LAB - | | | (LAB) | | | [facility] | | + [...] + + | [facility] - | [address] | [place] | [phone] | | [facility] | | | | + + + + + documented in this encounter Visit Diagnoses Not on filedocumented in this encounter"
--- OUTSIDE RECORDS SUMMARY | ~2019-01-02 | XMS | Encounter Summary ---
Demographics + + + | Address | [address] | | | [place] [address] | + + + | Home Phone [...] | | | | | [place] [address] | | + + + + + | Thania Mallory | ECON | [address] | | | | | [place] [address] | | + + + + + | Deidra Weldon | ECON | [address] | | | | | [place] | | | | | [address] | | + + + + + Care Team Providers + +------+ + | Care Glass Block Bender Name | Role | Phone | [...] Change (Close | | | | ANNALISA [facility] | [facility] | referral) | | | | Rd [place], [place] | [facility] [place] | | | | | [address] | [address] | | | | | [phone] | | | +--------+ + + + [...] [facility] | | | | | | [address] | | | | | | [phone] | | | | | | | | +--------+ + + + + documented as of this encounter Visit Diagnoses Not on filedocumented in this encounter"
--- OUTSIDE RECORDS SUMMARY | ~2019-01-02 | XMS | Encounter Summary ---
Demographics + + + | Address | [address] | | | [place] [address] | + + + | Home Phone [...] | | | | | [place] [address] | | + + + + + | Thania Mallory | ECON | [address] | | | | | [place] [address] | | + + + + + | Deidra Weldon | ECON | [address] | | | | | [place] | | | | | [address] | | + + + + + Care Team Providers + +------+ + | Care House Sitter Name | Role | Phone | + [...] + + | 10/31/ | Documentati | Transplant | Kenny Abbott | Financial Review | | 2012 | on | [address] | [place], [place] | | | | | [address] [facility] | [address] | | | | | Rd [place], [place] | | | | | | [address] | | | | | | [phone] | | | +--------+ + + + [...] Denise | | | | | | [place], [place] | | | | | | [address] | | | | | | [phone] | | | | | | | | +--------+ + + + + documented as of this encounter Visit Diagnoses Not on filedocumented in this encounter"
--- OUTSIDE RECORDS SUMMARY | ~2019-01-02 | XMS | Encounter Summary ---
Demographics + + + | Address | [address] | | | [place] [address] | + + + | Home Phone [...] | | | | | [place] [address] | | + + + + + | Thania Mallory | ECON | [address] | | | | | [place] [address] | | + + + + + | Deidra Weldon | ECON | [address] | | | | | [place] | | | | | [address] | | + + + + + Care Team Providers + +------+ + | Care Dry Cure Worker Name | Role | Phone | [...] + + | 12/09/ | Abstract | Transplant | Jesus Edmond, | Transplant Form | | 2012 | | [address] | [address] | Update (Dialysis | | | | [address] [place] | [address] | unit updated) | | | | [place], [place] | [facility] [place] | | | | | [address] | [address] | | | | | [phone] | [phone] | | | | | | | [...] Denise | | | | | | [place] | | | | | | [address] | | | | | | [phone] | | | | | | | | +--------+ + + + + documented as of this encounter Visit Diagnoses Not on filedocumented in this encounter"
--- OUTSIDE RECORDS SUMMARY | ~2019-01-02 | XMS | Encounter Summary ---
Demographics + + + | Address | [address] | | | [place] [address] | + + + | Home Phone [...] | | | | | [place] [address] | | + + + + + | Thania Mallory | ECON | [address] | | | | | [place] [address] | | + + + + + | Deidra Weldon | ECON | [address] | | | | | [place] | | | | | [address] | | + + + + + Care Team Providers + +------+ + | Care Station Examiner Name | Role | Phone | [...] Visit | Services Inpatient | RD [address] [facility] | disease, stage V | | | | [address] [facility] | [facility] | (HCC) (Primary Dx) | | | | [address] | [place], [place] | | | | | Mailcode: UHS18 | [address] | | | | | [place], [place] | [phone] | | | | | [address] | | | | | | [phone] | | | +--------+---------+ + + + [...] a nutrition perspective. Argentina Mehta, MS, RD, LEAD BURNER APPRENTICE, LD documented in this e ncounter Plan of Treatment +--------+ + + + + | Date | Type | Specialty | Care Team | Description | +--------+ + + + + | 05/04/ | Hospital | Adult Acute Care | El Starr MD | | | 2022 | Encounter | | [address] | | | | | | [place], [place] | | | | | | [address] | | | | | | [phone] | | | | | | | | +--------+ + + + + documented as of this encounter Procedures + +--------+ + + + | Procedure Name | Priori | Date/Time | Associated Diagnosis | Comments | | | ty | | | | + +--------+ + + + | NM MNT INITIAL | Routin | 12/21/2012 | [...]
--- OUTSIDE RECORDS SUMMARY | ~2019-01-02 | XMS | Encounter Summary ---
Demographics + + + | Address | [address] | | | [place] [address] | + + + | Home Phone [...] | | | | | [place] [address] | | + + + + + | Thania Mallory | ECON | [address] | | | | | [place] [address] | | + + + + + | Deidra Weldon | ECON | [address] | | | | | [place] | | | | | [address] | | + + + + + Care Team Providers + +------+ + | Care Straight Pin Making Machine Operator Name | Role | Phone [...] on | Work [address] | L [address] | Update (Ped [place] [address] | | | | [address] | [address] | clinic check-in) | | | | Dea Jane | [place], [place] | | | | | [place], [place] | [address] | | | | | [address] | | | | | | [phone] | | | +--------+ + + + [...] Denise | | | | | | [place] | | | | | | [address] | | | | | | [phone] | | | | | | | | +--------+ + + + + documented as of this encounter Visit Diagnoses Not on filedocumented in this encounter"
--- OUTSIDE RECORDS SUMMARY | ~2019-01-02 | XMS | Encounter Summary ---
Demographics + + + | Address | [address] | | | [place] [address] | + + + | Home Phone [...] | | | | | [place] [address] | | + + + + + | Thania Mallory | ECON | [address] | | | | | [place] [address] | | + + + + + | Deidra Weldon | ECON | [address] | | | | | [place] | | | | | [address] | | + + + + + Care Team Providers + +------+ + | Care Community Integration Specialist Name | Role | Phone | [...] Update | | | | [address] [facility] | [facility] | | | | | [place], [place] | [place], [place] | | | | | [address] | [address] | | | | | [phone] | [phone] | | | | | | | [...] Denise | | | | | | [place], [place] | | | | | | [address] | | | | | | [phone] | | | | | | | | +--------+ + + + + documented as of this encounter Visit Diagnoses Not on filedocumented in this encounter"
--- OUTSIDE RECORDS SUMMARY | ~2019-01-02 | XMS | Encounter Summary ---
Demographics + + + | Address | [address] | | | [place] [address] | + + + | Home Phone [...] | | | | | [place] [address] | | + + + + + | Thania Mallory | ECON | [address] | | | | | [place] [address] | | + + + + + | Deidra Weldon | ECON | [address] | | | | | [place] | | | | | [address] | | + + + + + Care Team Providers + +------+ + | Care Pack Operator Name | Role | Phone | [...] | purpura | [address] | [address] | | | | | (HCC) [facility] | [address] | | | | | (Amelie | [address] | [address] | | | | | nlein | [place], [place] | Mailcode: | | | | | purpura) | [address] | DC7S | | | | | nephritis | Phone: | [place] | | | | | (HCC) | [phone] | [place], [place] | | | | | Hemodialysis | Fax: | [address] | | | | | status | [phone] | Phone: | | | | | (HCC) | | [phone] | | | | | Chronic | | Fax: | | | | | kidney | | [phone] | | | | | disease, | [...] | | 2014 | Encounter | at [facility] [address] | | | | | | [address] | | | | | | Mailcode: [id number] | | | | | | [place] | | | | | | [place], [place] | | | | | | [address] | | | | | | [phone] | | | +--------+ + + + [...] Denise | | | | | | [place], [place] | | | | | | [address] | | | | | | [phone] | | | | | | | [...] | e | 1:18 PM | MEDICARE 4937 HSP | procedure are in the | [...] 2:35 PM PST Echocardiography Laboratory | | [address] | | [place] [address] | | ; | | [id number] | | | | Transthoracic Echocardiogram Report | | | | | | NAME: DARA WELDON Study Date: 01/20/2015 1:18:29 PM | | Order #: [id number] ACC #: [id number] | | | | | | : [...] on 01/20/2015 at 2:35:17 PM | | Passenger Interline Clerk: YARITZA KLINE [facility] | | | | | | cc: | | | | | | Modes utilized | | TTE 89441; Spectral Doppler 38533; Color flow Doppler 86445; | | | | | | | | Final | + + + + + + + | Performing | Address | City/State/Zipcode | Phone Number | | Organization | | | | + + + + + | [facility] | [address] | [place], [place] | | | CARDIOLOGY | [address] | [address] | | + + + + + [...]
--- OUTSIDE RECORDS SUMMARY | ~2019-01-02 | XMS | Encounter Summary ---
Demographics + + + | Address | [address] | | | [place] [address] | + + + | Home Phone [...] | | | | | [place] [address] | | + + + + + | Thania Mallory | ECON | [address] | | | | | [place] [address] | | + + + + + | Deidra Weldon | ECON | [address] | | | | | [place] | | | | | [address] | | + + + + + Care Team Providers + +------+ + | Care Income Tax Investigator Name | Role | Phone | [...] [address] | Summary | | | | [address] [facility] | [facility] | | | | | Rd [place], [place] | [place], [place] | | | | | [address] | [address] | | | | | [phone] | | | +--------+ + + + [...] [facility] | | | | | | [address] | | | | | | [phone] | | | | | | | | +--------+ + + + + documented as of this encounter Visit Diagnoses Not on filedocumented in this encounter"
--- OUTSIDE RECORDS SUMMARY | ~2019-01-02 | XMS | Encounter Summary ---
Demographics + + + | Address | [address] | | | [place] [address] | + + + | Home Phone [...] | | | | | [place] [address] | | + + + + + | Thania Mallory | ECON | [address] | | | | | [place] [address] | | + + + + + | Deidra Weldon | ECON | [address] | | | | | [place] | | | | | [address] | | + + + + + Care Team Providers + +------+ + | Care Director Hydrogen Storage Engineering Name | Role | Phone | + [...] | | [address] [facility] | [facility] | | | | | Rd [place], [place] | [place], [place] | | | | | [address] | [address] | | | | | [phone] | | | +--------+ + + + [...] [facility] | | | | | | [address] | | | | | | [phone] | | | | | | | | +--------+ + + + + documented as of this encounter Visit Diagnoses Not on filedocumented in this encounter"
--- OUTSIDE RECORDS SUMMARY | ~2019-01-02 | XMS | Encounter Summary ---
Demographics + + + | Address | [address] | | | [place] [address] [...] | | | | | [place] [address] | | + + + + + | Thania Mallory | ECON | [address] | | | | | [place] [address] | | + + + + + | Deidra Weldon | ECON | [address] | | | | | [place] | | | | | [address] | | + + + + + Care Team Providers + +------+ + | Care Office Services Specialist Name | Role | Phone | [...] Rd | | | | | [facility] | [place], [place] | | | | | [address] | [address] | | | | | [address] Mailcode: | [phone] | | | | | [address] | | | | | | [place], [place] | | | | | | [address] | | | | | | [phone] | | | +--------+ + + + [...] Denise | | | | | | [place], [place] | | | | | | [address] | | | | | | [phone] | | | | | | | | +--------+ + + + + documented as of this encounter Visit Diagnoses Not on filedocumented in this encounter"
--- OUTSIDE RECORDS SUMMARY | ~2019-01-02 | XMS | Encounter Summary ---
Demographics + + + | Address | [address] | | | [place] [address] | + + + | Home Phone [...] + + + + + | Cory eWldon | ECON | [address] | | | | | [place] [address] | | + + + + + | Thania Mallory | ECON | [address] | | | | | [place] [address] | | + + + + + | Deidra Weldon | ECON | [address] | | | | | [place] | | | | | [address] | | + + + + + Care Team Providers + +------+ + | Care Drafter Engineering Name | Role | Phone | [...] Rd | | | | | [facility] | [place], [place] | | | | | [address] | [address] | | | | | [address] Mailcode: | [phone] | | | | | [address] | | | | | | [place], [place] | | | | | | [address] | | | | | | [phone] | | | +--------+--------+ + + + [...] Denise | | | | | | [place], [place] | | | | | | [address] | | | | | | [phone] | | | | | | | | +--------+ + + + + documented as of this encounter Visit Diagnoses Not on filedocumented in this encounter"
--- OUTSIDE RECORDS SUMMARY | ~2019-01-02 | XMS | Encounter Summary ---
Demographics + + + | Address | [address] | | | [place] [address] | + + + | Home Phone [...] | | | | | [place] [address] | | + + + + + | Thania Mallory | ECON | [address] | | | | | [place] [address] | | + + + + + | Deidra Weldon | ECON | [address] | | | | | [place] | | | | | [address] | | + + + + + Care Team Providers + +------+ + | Care Asphalt Tamping Machine Operator Name | Role | Phone [...] Shun | | | | | at [facility] | [facility] | | | | | [address] | [place] [address] | | | | | [facility] | | | | | | Mailcode: [id number] [facility] | | | | | | [facility] | | | | | | [facility] | | | | | | [place] [address] | | | | | | [phone] | | | +--------+ + + + [...] Denise | | | | | | [place], [place] | | | | | | [address] | | | | | | [phone] | | | | | | | [...] | e | 11:49 AM | MEDICARE 0289 | procedure are in the | | [...] view image for the detailed interpretation from [facility] results. | CARDIOLOGY | + + + + + | Procedure Note | + + | Interface, Cardiology Results - 12/21/2012 9:38 AM PDT Please click on view image | | for the detailed interpretation from [facility] results. 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
--- OUTSIDE RECORDS SUMMARY | ~2019-01-02 | XMS | Encounter Summary ---
Demographics + + + | Address | [address] | | | [place] [address] | + + + | Home Phone [...] Author | [facility] | | | and [place]ana | + + + | Organization | [facility] | | | and [...] Team Providers + +------+ + | Care Waiter/Waitress Head Name | Role | Phone | [...] + + | 11/06/ | Hospital | 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); ESRD on | | | | | | hemodialysis ([facility]); | | | | | | Moderate to severe | | | | | | pulmonary | | | | | | hypertension ([facility]); | | | | | [...] | | | | | | function ([facility]); | | | | | | Non-compliance; | | | | | | Troponin I above | | | | | | reference range; | | | | | | Anemia in ESRD | | | | | | (end-stage renal | | | | | | disease) ([facility]); At | | | | [...] | Blood Pressure | 124/63 | 11/09/2018 1140 PDT | + + + + | Pulse | 74 | 11/09/20181139 PDT | + + + + | Temperature | 36.6 C (97.9 F) | 11/09/20181139 PDT | + + + + | Respiratory Rate | 16 | 11/09/20181139 PDT | + + + + | Oxygen Saturation | 100% | 11/09/20181139 PDT | + + + + | Inhaled Oxygen | - | - | | Concentration | | | + + + + | Weight | 63.4 kg (139 lb 12.4 | 11/09/2018 1203 PDT | | | oz) | | + + + + | Height | 170.2 cm (5' 7") | 11/06/2018 1511 PDT | + + + + | Body Mass Index | 21.89 | 11/06/2018 1511 PDT | + + + + documented in this encounter Discharge Summaries Tejinder Solano MD - 11/09/2018 1245 PDTFormatting of this note might be different from t chacha original. [facility] Service: Medicine DISCHARGE SUMMARY Primary Care Physician: [...] be evaluated at local emergency room at [facility]. In the ER patient was evaluated by [...] transferred with the patient's paper documentation from [facility] ER). Initial labs: WBC 6.5, hemoglobin 11.0, [...] suggesting of edema. Taken from Dr. Brooks [facility] (11/06/2018) HOSPITAL COURSE Patient was admitted for [...] Left; Surgeon: Blake Chavarria MD ; Location: [facility] MAIN OR AV FISTULA REPAIR Left 03/07/2014 Procedure: AV FISTULA - GRAFT REPAIR/REVISION; Surgeon: Rik Simon MD; Location: [facility] IN OR; Service: Vascular; Laterality: Left; biopsy of kidney age 10 DIALYSIS FISTULA CREATION 04/08/2014 Procedure: DIALYSIS CATHETER - INSERTION; Surgeon: Rik Simon MD; Location: [facility] MAIN OR ; Service: Vascular; Laterality: N/A; tunneled catheter.br hemodialysis catheter KIDNEY BIOPSY Left 2003 OTHER SURGICAL HISTORY LAPAROSCOPIC PERITONEAL DIALYSIS CATHETER INSERTION - x2 OTHER SURGICAL HISTORY Right 07/2013 LAPAROSCOPIC PERITONEAL DIALYSIS CATHETER INSERTION - current dialysis access MWF dialysis OTHER SURGICAL HISTORY Left 06/24/2014 SUPERFICIALIZATION OF AV FISTULA - Procedure: AV FISTULA - SUPERFICIALIZATION; Surgeon: Emanuel Simon MD; Location: [facility] MAIN OR; Service: Vascular; Laterality: Left; OTHER SURGICAL HISTORY Left 04/08/2014 AV FISTULA PLACEMENT - Procedure: AV FISTULA; Surgeon: Rik Simon MD; Location: [facility] ENE N OR; Service: Vascular; Laterality: Left; cephalic OTHER SURGICAL HISTORY Left 03/07/2014 DECLOT GRAFT - Procedure: GRAFT - DECLOT; Surgeon: Rik Simon MD; Location: [facility] MAIN OR ; Service: Vascular; Laterality: Left; [...] Value Units Date/Time Culture, Body Fluid Sterile [[id number]] Collected: 11/07/18 1515 Order Status: Completed Lab Status: Preliminary result Updated: 11/09/18 141 Specimen: Body Fluid from Pleural Fluid, Right Special Requests RIGHT SIDE Special Requests Testing performed at [facility];[address] [place] [id number] Gram Stain Result NO CELLS OR ORGANISMS SEEN RESULT NO GROWTH 2 DAYS RESULT Testing performed at [facility], [address] [place] [address] Comment: Testing performed at [facility], [address] [place] [address] Culture, Body Fluid Sterile [[id number]] Order Status: Canceled Lab Status: No result Specimen: Body Fluid from Pleural Fluid, Right Antibiotics None Imaging None PATIENT INSTRUCTIONS Home or Self Care Activity: As tolerated Diet: renal diet Wound Care: none needed Discharge Medications New Medications Details losartan 25 mg tablet Take 1 tablet by mouth Daily. aka: COZAAR Changed Medications Details doxercalciferol 2 mcg/mL injection [...] Discontinued Medications valsartan 40 mg tablet aka: DOMINGAVAN Follow Up: Jonathan Alonso MD [address] [facility] [place] [address] In 1 week René Anguiano MD [address] [facility] [address] [place] [address] In 1 week Discharge took 60 minutes, to include final examination, discussion of admission, and prepa ration of prescriptions, instructions for on-going care, follow up and documentation of disc harge summary. Discharge summary prepared in conjunction with medical student Yefri Meek, MS3. Tejinder Solano MD 11/09/2018 Associated attestation - Darell Kowalski MD - 11/09/2018 1649 PDTAttending: Pt is seen and examined with [...] tablet by | 30 | 4 | 10/23/ | | | (PLAVIX) 75 mg | [...] | | | | | renal disease) ([facility]) | protocol | | | [...] | tablet | | 19 | | + + + +---------+ + + | metoprolol | Take 1 tablet by | | 0 | 07/25/19 | | | succinate | mouth daily. | | | 19 | 0 | | (TOPROL-XL) 50 mg 24 | [...] as of this encounter Progress Notes Daniela Vyas, RN - 11/09/2018 1546 PDTPatient left private vehicle with her sister. DME equipment order sent to [facility]. She refused oxygen delivery to the hospi mary kate saying that she just wanted to go home. Orders state 1L for ambulating only.Electronical ly signed by Daniela Vyas RN at 11/09/2018 15:47 Anival Patten GROUP HOME MANAGER - 11/09/2018 124 5 PDT 11/09/18 1244 Oxygen Therapy Home O2 eval performed? yes Resting on RA (%) 95 Exercising on RA (%) 86 Exercising on O2 (%)(add L/Min in comment) 90 (placed on 1lpm) Anival Patten RRT - 1129 PDTPatient having dialysis. Home oxygen eval on hold. Jae Pickens RN - 11/09/2018 0526 PDTPt walked four laps around unit with walker and did not co SOB. Pain PRN med given for back and incisional pain. No other acute changes during shift. Chart check completeElectronical ly signed by Jae Vargas RN at 11/09/2018 5:29 Kimberly Medel RN - 9 1856 PDTAfter diet was explained thoroughly to pt, pt had Moul[place]'s delivered to room. Pt was reminded of diet restrictions. Kimberly Lyons RN 18:58 Cliff Pozo MD - 11/08/2018 1312 PDTFormatting of t his note might be different from the original. 8125/8125-01 LOS: 2 days Dara Louise is [...] UF. Hypervolemia has improved with HD/UF/thoracentesis. Acute SC has been ruled out. Recommendations: Plan for [...] for continuity of chart review/care. Dictation software, Miproto, was used which may contain error for [...] nephrology care as of 8 PM tonight. efri Meek Medical Rich dent - 11/08/2018 1305 PDT [facility] Inpatient Progress Note Pt: Dara Louise AGE/SEX: 23 y.o. ROOM: 8125/8125-01 : 1995 PCP: Jonathan Alonso MD PATIENT [...] Code status: FULL CODE Disposition: Inpatient Yefri Meek, Medical Student 11/08/2018 13:05 Associated attestation - Darell Kowalski MD - 11/08/2018 1728 PDTAttending: Pt is seen and examined with student. Discussed and agree with the findings and plan as do cumented in the note.Laboratory tests and radiology images have been independently reviewed and confirmed. My thoughts have been incorporated in the above-mentioned note. She is feeli ng better. Darell Kowalski MD, Cliff Caicedo MD - 11/07/2018 1024 PDT 8112/8112-01 LOS: 1 day Dara Louise [...] hypervolemic and has recurrent hyperkalemia/metabolic acidosis. Acute SC has been ruled out. Recommendations: Plan for [...] for continuity of chart review/care. Dictation software, Miproto, was used which may contain error for [...] WC valsartan 40 mg Oral Daily Yefri Andres [facility] dent - 11/07/2018 0725 PDT [facility] Inpatient Progress Note Pt: Dara Louise AGE/SEX: 23 y.o. ROOM: [facility]/8112-01 : 1995 PCP: Jonathan Alonso MD PATIENT [...] and dyspnea. The patient was seen at [facility] ER and then transferred to our internal [...] 11/07/2018 7:25 Associated attestation - Darell Kowalski MD - 11/07/2018 6020 PDTAttending: Pt is seen and examined with [...] Kowalski MD, MD documented in this encounter Plan of Treatment +--------+---------+ + + + | Date | Type | Specialty | Care Team | Description | +--------+---------+ + + + | 03/05/ | Office | Pulmonology | Denyn Alexander | | | 2019 | Visit | | Deny Briggs MD [address] | | | | | [address] | | | | | | [place] [address] | | | | | | [phone] | | | | | | | | +--------+---------+ + + + + +--------+ + + | Name | Priori | Associated Diagnoses | Order Schedule | | | ty | | | + +--------+ + + | DME: Oxygen Therapy | Routin | Chronic combined | DME 1 Time for 1 | | | e | systolic and | Occurrences starting | | | | diastolic heart | 11/09/2018 until | | | | failure (HCC) | 11/09/2018 | | | | Chronic right-sided | | | | | heart failure (HCC) | | + +--------+ + + documented as [...] 9:56 PDT | | | + +--------+ + [...] in this encounter Results HEMODIALYSIS (11/09/2018 9:34 PDT) + + + | Narrative | Performed At | + + + | Billie Gupta MD 11/09/2018 9:34 [facility] | | | [facility] Hemo-Dialysis Procedure note Pt is [...] | | . 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 Molasses 240 | | | Constitutional: pt appears [...] | + + + Phosphorus (11/09/2018 4:14 PDT) + + + + + + | Component | Value | Ref Range | Performed | Pathologist | | | | | At | Signature | + + + + + + | Phosphorus | 7.6 (H)Comment: Testing | 2.3 - 4.8 mg/dL | [facility] | | | | performed at [facility], [address] | | LABORATORY | | | | [address], | | | | | | [place] [address] | | | | + + + + + + + + | Specimen | + + | Blood | + + + + + + + | Performing | Address | City/State/Zipcode | Phone Number | | Organization | | | | + + + + + | [facility] | [address] | [place] [address] | [phone] | + + + + + Comprehensive Metabolic Panel (11/09/2018 4:14 PDT) + + + + + + [...] | | | | | | MDRD IDIN traceable | | | | | | equation.Testing | | | | | | performed at [facility], [address] | | | | | | [facility], | | | | | | [place] [address] | | | | + + + + + + + + | Specimen | + + | Blood | + + + + + + + | Performing | Address | City/State/[facility] | Phone Number | | Organization | | | | + + + + + | [facility] | [address] | [place] [address] | [phone] | + + + + + CBC with Differential (11/09/2018 4:14 PDT) + + + + + + | Component | Value | Ref Range | Performed | Pathologist | | | | | At | Signature | + + + + + + | WBC | 4.25 | 3.80 - 11.00 | [facility] | | | | | K/uL | LABORATORY | | + + + + + + | RBC | 2.63 (L) | 3.70 - 5.10 [...] LABORATORY | | | | performed at [facility], [address] | | | | | | [address], | | | | | | [place] [address] | | | | | | | | | | + + + + + + + + | Specimen | + + | Blood | + + + + + + + | Performing | Address | City/State/Zipcode | Phone Number | | Organization | | | | + + + + + | [facility] | [address] | [place] [address] | [phone] | + + + + + Protime INR (11/09/2018 4:14 PDT) + + + + + + | Component | Value | Ref Range | Performed | Pathologist | | | | | At | Signature | + + + + + + | INR | 1.3Comment: REFERENCE | | [facility] | | | | RANGE:0.9 - | [...] | | | | | performed at [facility];[address] | | | | | | [facility];[place], [place] | | | | | | [address] | | | | + + + + + + + + | Specimen | + + | Blood | + + + + + + + | Performing | Address | City/State/Zipcode | Phone Number | | Organization | | | | + + + + + | [facility] | [address] | [place] [address] | [phone] | + + + + + Comprehensive Metabolic Panel (11/08/2018 4:47 PDT) + + + + + + [...] | | | performed at [facility], [address] | | | | | | [facility], | | | | | | [place] [address] | | | | + + + + + + + + | Specimen | + + | Blood | + + + + + + + | Performing | Address | City/State/Zipcode | Phone Number | | Organization | | | | + + + + + | [facility] | [address] | [place] [address] | [phone] | + + + + + CBC with Differential (11/08/2018 4:47 PDT) + + +--- + + + | Component | Value | Re f Range | Performed | Pathologist | | | | | At | Signature | + + +--- + + + | WBC | 7.11 | 3. 80 - 11.00 | [facility] | | | | | K/ uL | LABORATORY | | + + +--- + + + | RBC | 2.92 (L) | 3. 70 - 5.10 | [facility] | | | | | M/ uL | LABORATORY | | + + +--- + + + | Hemoglobin | 10.6 (L) | 11 .3 - 15.5 | [facility] | | | | | g/ dL | LABORATORY | | + + +--- + + + | Hematocrit | 31.3 (L) | 34 .0 - 46.0 % | [facility] | | | | | | LABORATORY | | + + +--- + + + | MCV | 107.3 (H) | 80 .0 - 100.0 fl | [facility] | | | | | | LABORATORY | | + + +--- + + + | MCH | 36.2 (H) | 27 .0 - 34.0 pg | [facility] | | | | | | LABORATORY | | + + +--- + + + | MCHC | 33.7 | 32 .0 - 35.5 | [facility] | | | | | g/ dL | LABORATORY | | + + +--- + + + | RDW-SD | 51.6 | 37 - 53 fl | [facility] | | | | | | LABORATORY | | + + +--- + + + | Platelet | 169 | 15 0 - 400 K/uL | [facility] | | | Count | | | LABORATORY | | + + +--- + + + | MPV | 10.3 | fl | [facility] | | | | | | LABORATORY | | + + +--- + + + | Diff Type | AUTOMATED | | [facility] | | | | | | LABORATORY | | + + +--- + + + | % | 72.66 | % | [facility] | | | Neutrophils | | | LABORATORY | | + + +--- + + + | % | 15.82 | % | [facility] | | | Lymphocytes | | | LABORATORY | | + + +--- + + + | Monocyte % | 4.50 | % | [facility] | | | | | | LABORATORY | | + + +--- + + + | Eosinophils | 5.98 | % | [facility] | | | % | | | LABORATORY | | + + +--- + + + | Basophils % | 1.04 | % | [facility] | | | | | | LABORATORY | | + + +--- + + + | Neutrophils | 5.17 | 1. 90 - 7.40 | [facility] | | | , Absolute | | K/ uL | LABORATORY | | + + +--- + + + | Absolute | 1.13 | 1. 00 - 3.90 | [facility] | | | Lymphocytes | | K/ uL | LABORATORY | | + + +--- + + + | Absolute | 0.32 | 0. 00 - 0.80 | [facility] | | | Monocytes | | K/ uL | LABORATORY | | + + +--- + + + | Eosinophils | 0.43 | 0. 00 - 0.50 | [facility] | | | , Absolute | | K/ uL | LABORATORY | | + + +--- + + + | Basophils, | 0.07 | 0. 00 - 0.10 | [facility] | | | Absolute | | K/ uL | LABORATORY | | + + +--- + + + | RBC | 2+Comment: | | [facility] | | | Morphology | MACRO1+ANISONORMAL PLT | | LABORATORY | | | | MORPHTesting performed | | | | | | at [facility], [address] | | | | | | [facility], | | | | | | [place] [address] | | | | | |Testing performed at [facility], [address] [place] [address] | | | | | | | | | | + + +--- + + + + + | Specimen | + + | Blood | + + + + + + + | Performing | Address | City/State/Zipcode | Phone Number | | Organization | | | | + + + + + | [facility] | [address] | [place] [address] | [phone] | + + + + + Protime INR (11/08/2018 4:47 PDT) + + + + + + | Component | Value | Ref Range | Performed | Pathologist | | | | | At | Signature | + + + + + + | INR | 1.3Comment: REFERENCE | | [facility] | | | | RANGE:0.9 - | [...] | | | | | performed at [facility];[address] | | | | | | [address];[place] | | | | | | [address] | | | | + + + + + + + + | Specimen | + + | Blood | + + + + + + + | Performing | Address | City/State/Zipcode | Phone Number | | Organization | | | | + + + + + | [facility] | [address] [facility] | [place] [address] | [phone] | + + + + + XR Chest AP Portable (11/07/2018 16:48 PDT) + + | Specimen | + [...] right pleural effusion. No appreciable pneumothorax to | | | suggest complication of the procedure. Mild cardiomegaly again noted | | | no overt failure. IMPRESSION: Interval decrease in the volume of | | | the right pleural effusion consistent with a history of recent | | | thoracentesis. No pneumothorax to suggest complication of the | | | procedure. Signed by: Eliza Coy Dwane Sign Date/Time: | | | 11/07/2018 4:52 PM | | + + + + + | Procedure Note | + + | Cedric, Rad Results In - 11/07/2018 1655 PDT | | CHEST PORTABLE ONE VIEW [...] US Guided Thoracentesis wo Chest Tube (11/07/2018 15:35 PDT) + + | Specimen | + + | | + + + + + | Narrative | Performed At | + + + | ULTRASOUND GUIDED RIGHT THORACENTESIS CLINICAL INFORMATION: | [facility] | | Large right-sided pleural effusion PROCEDURE: Cheryl WASSERMAN | | | performed the procedure under the direct supervision of Dr. Du | | | Cole MD/PhD. Prior to the procedure, risks and benefits [...] is | | | punctured with an 5-Wallisian thoracentesis catheter. Fluid is aspirated | | [...] | Cedric, Rad Results In - 11/07/2018 1554 PDT | | ULTRASOUND GUIDED RIGHT THORACENTESIS [...] the pleural space is punctured with an 5-Wallisian | | thoracentesis catheter. Fluid is aspirated [...] + + | Performing | Address | City/State/[facility] | Phone Number | | [...] | | LABORATORY | | | | [address];[place] [address] | | | | + + + [...] RESULT | Testing performed at | | [facility] | | | | [facility], [address] [place] [facility] | | LABORATORY | | | | [place], [place] | | | | | | [id number]: Testing | | | | | | performed at [facility], [address] | | | | | | [facility], [place], [place] | | | | | | [address] | | | | + + + + + + + + | Specimen | + + | Body Fluid | + + + + + + + | Performing | Address | City/State/Zipcode | Phone Number | | Organization | | | | + + + + + | [facility] | [address] [facility] | [place] [address] | [phone] | + + + + + Protein, Body Fluid (11/07/2018 15:15 PDT) + + + + + + | Component | Value | Ref Range | Performed | Pathologist | | | | | At | Signature | + + + + + + | Protein, BF | 3.4Comment: This is not | g/dL | [facility] | | | | a vocational case manager validated | | LABORATORY | | | | sample type for this | | | | | | method. No | | | | | | referenceranges have | | | | | | been established.Testing | | | | | | performed at [facility], [address] | | [address], | | | | | | [place] [address] | | | | + + + + + + | SOURCE | PLEURAL FLUIDComment: | | [facility] | | | | Testing performed at | | LABORATORY | | | | [facility];[address] [place] [address] | | | | | | [address];[place] [address] | | | | + + + + + + + + | Specimen | + + | Body Fluid | + + + + + + + | Performing | Address | City/State/Zipcode | Phone Number | | Organization | | | | + + + + + | [facility] | [address] | [place] [address] | [phone] | + + + + + Lactate dehydrogenase, body fluid (11/07/2018 15:15 PDT) + + + + + + | Component | Value | Ref Range | Performed | Pathologist | | | | | At | Signature | + + + + + + | LDH, BODY | 102Comment: This is not | U/L | [facility] | | | FLUID | a vocational case manager validated | | LABORATORY | | | | sample type for this | | | | | | method. No | | | | | | referenceranges have | | | | | | been established.Testing | | | | | | performed at [facility], [address] | | | | | [address] [facility], | | | | | | [place] [address] | | | | + + + + + + + + | Specimen | + + | Body Fluid | + + + + + + + | Performing | Address | City/State/Zipcode | Phone Number | | Organization | | | | + + + + + | [facility] | [address] | [place] [address] | [phone] | + + + + + Glucose, Body Fluid (11/07/2018 15:15 PDT) + + + + + + | Component | Value | Ref Range | Performed | Pathologist | | | | | At | Signature | + + + + + + | Glucose | 96Comment: This is not a | mg/dL | [facility] | | | Fluid | vocational case manager validated | | LABORATORY | | | | sample type for this | | | | | | method. No | | | | | | referenceranges have | | | | | | been established.Testing | | | | | | performed at [facility], [address] | | | [address] | [address], | | | | | | [place] [address] | | | | + + + + + + | SOURCE | PLEURAL FLUIDComment: | | [facility] | | | | Testing performed at | | LABORATORY | | | | [facility];[address] | | | | | | [address];[place] [address] | | | | + + + + + + + + | Specimen | + + | Body Fluid | + + + + + + + | Performing | Address | City/State/Zipcode | Phone Number | | Organization | | | | + + + + + | [facility] | [address] | [place] [address] | [phone] | + + + + + Cell [...] + + + | BF RBC | <66272 | /mm3 | [facility] | | | [...] | | | Counted | performed at [facility];[address] | | LABORAT[address] | | | [address];[place], [place] | | | | | | [address] | | | | + + + + + + + + | Specimen | + + | Body Fluid | + + + + + + + | Performing | Address | City/State/Zipcode | Phone Number | | Organization | | | | + + + + + | [facility] | [address] | [place] [address] | [phone] | + + + + + Amylase, Body Fluid (11/07/2018 15:15 PDT) + + + + + + | Component | Value | Ref Range | Performed | Pathologist | | | | | At | Signature | + + + + + + | AMYLASE | 46Comment: This is not a | U/L | [facility] | | | FLUID | vocational case manager validated | | LABORATORY | | | | sample type for this | | | | | | method. No | | | | | | referenceranges have | | | | | | been established.Testing | | | | | | performed at [facility], [address], | | | | | | [place] [address] | | | | + + + + + + + + | Specimen | + + | Body Fluid | + + + + + + + | Performing | Address | City/State/Zipcode | Phone Number | | Organization | | | | + + + + + | [facility] | [address] | [place] [address] | [phone] | + + + + + Albumin, Body Fluid (11/07/2018 15:15 PDT) + + + + + + | Component | Value | Ref Range | Performed | Pathologist | | | | | At | Signature | + + + + + + | Albumin, | 2.0Comment: This is not | g/dL | [facility] | | | Fluid | a vocational case manager validated | | LABORATORY | | | | sample type for this | | | | | | method. No | | | | | | referenceranges have | | | | | | been established.Testing | | | | | | performed at [facility], [address] | | | [address] | [address], | | | | | | [place] [address] | | | | + + + + + + + + | Specimen | + + | Body Fluid | + + + + + + + | Performing | Address | City/State/Zipcode | Phone Number | | Organization | | | | + + + + + | [facility] | [address] | [place] [address] | [phone] | + + + + + Medical Cytology (11/07/2018 15:15 PDT) + + | Specimen | + + | Body Fluid | + + + + + | Narrative | Performed At | + + + | ORDERING | [facility] | | PHYSICIAN:Dex ALMEIDA, Darell Scott PATIENT NAME:DARA LOUISE | [facility] | | ELISE: Alysia : 1995 SPECIMEN(S): A PLEURAL | [...] | | | preparation was performed by [employer], [address] | | | [place] [address] (Javascript Programmer: Matt Claudio D.O.; | | | CLIA#: [id number]).Professional interpretation was performed by | | | [employer], | | | [place] [address] (Javascript Programmer: Daniel Larson M.D.; | | | CLIA#: [id number]).6 Diagnostician: Enrrique Nichols | | | CT([facility])CytotechnologistDiagnostician: Daniel Larson | | | MDPathologistElectronically Signed 11/13/2018 | | |DESCRIPTION: | | |The preparations contain mesothelial cells, rare inflammatory cells, and acellular proteina ceous material. Atypical cytologic findings are not encountered. | | | | | |SPECIMEN ADEQUACY: | | |Satisfactory for Evaluation | | | | | |PERFORMING LABORATORY: | | |Technical preparation was performed by [employer], [address] [place] [address] (Javascript Programmer: Matt Claudio D.O.; CLIA#: [id number]). | | |Professional interpretation was performed by [employer], [address] [place] [address] (Javascript Programmer: Daniel Larson M.D.; [facility]# : [id number]).6 | | | | | |Diagnostician: Enrrique BROOKS([facility]) | | |Occupational Therapy Assistant | | |Diagnostician: Daniel Larson MD | [...] | examination for definitive assessment. Signed by: Delfin, | | | Eliza Brian Sign Date/Time: 11/07/2018 1:36 PM | | + + + + + | Procedure Note | + + | Cedric, Rad Results In - 11/07/2018 1339 PDT [...] | | | | Signed by: Eliza Lenz Amit | | Sign Date/Time: 11/07/2018 1:36 PM | + + + +---------+ + + | Performing | Address | City/State/Zipcode | Phone Number | | Organization | | | | + +---------+ + + | [facility] | | | | + +---------+ + + ECG 12 lead (11/07/2018 8:03 PDT) + + + + + + [...] +---------+ + + Troponin I (11/07/2018 7:34 PDT) + + + + + + | Component | Value | Ref Range | Performed | Pathologist | | | | | At | Signature | + + + + + + | Troponin I | 0.045 (H)Comment: 0.04 | 0.00 - 0.04 | [facility] | | | | ng/mL or | [...] at | | | | | | [facility];[address] | | | | | | vd;[place] [address] | | | | + + + + + + + + | Specimen | + + | Blood | + + + + + + + | Performing | Address | City/State/Zipcode | Phone Number | | Organization | | | | + + + + + | [facility] | [address] | [place] [address] | [phone] | + + + + + ECG 12 lead (11/07/2018 4:16 PDT) + + + + + + [...] | | + +---------+ + + | [facility] | | | | + +---------+ + + Ventura ROJAS (11/07/2018 4:03 PDT) + + + + + + | Component | Value | Ref Range | Performed | Pathologist | | | | | At | Signature | + + + + + + | INR | 1.3Comment: REFERENCE | | [facility] | | | | RANGE:0.9 - | [...] | | | | | performed at [facility] | | | | | | [address];[place], [place] | | | | | | [address] | | | | + + + + + + + + | Specimen | + + | Blood | + + + + + + + | Performing | Address | City/State/Zipcode | Phone Number | | Organization | | | | + + + + + | [facility] | [address] | [place] [address] | [phone] | + + + + + Platelet Count (11/07/2018 4:03 PDT) + + + + + + | Component | Value | Ref Range | Performed | Pathologist | | | | | At | Signature | + + + + + + | Platelet | 185Comment: Testing | 150 - 400 K/uL | [facility] | | | Count | performed at [address], [address] | | LABORATORY | | | | [address], | | | | | | [place] [address] | | | | + + + + + + + + | Specimen | + + | Blood | + + + + + + + | Performing | Address | City/State/Zipcode | Phone Number | | Organization | | | | + + + + + | [facility] | [address] | [place] [address] | [phone] | + + + + + PTT (11/07/2018 4:03 PDT) + + + + + + | Component | Value | Ref Range | Performed | Pathologist | | | | | At | Signature | + + + + + + | PTT | 27Comment: Testing | 23 - 32 seconds | [facility] | | | | performed at [facility];[address] | | LABORATORY | | | | [address];[place] | | | | | | [address] | | | | + + + + + + + + | Specimen | + + | Blood | + + + + + + + | Performing | Address | City/State/Zipcode | Phone Number | | Organization | | | | + + + + + | [facility] | [address] | [place] [address] | [phone] | + + + + + Lactate Dehydrogenase (11/07/2018 4:03 PDT) + + + + + + | Component | Value | Ref Range | Performed | Pathologist | | | | | At | Signature | + + + + + + | LDH TOTAL | 202Comment: Testing | 120 - 246 U/L | [facility] | | | | performed at [facility] | | LABORATORY | | | | [facility], [place] | | | | | | [address] | | | | + + + + + + + + | Specimen | + + | Blood | + + + + + + + | Performing | Address | City/State/Zipcode | Phone Number | | Organization | | | | + + + + + | [facility] | [address] | [place] [address] | [phone] | + + + + + Magnesium (11/07/2018 4:03 PDT) + + + + + + | Component | Value | Ref Range | Performed | Pathologist | | | | | At | Signature | + + + + + + | Magnesium | 2.3Comment: Testing | 1.7 - 2.4 mg/dL | [facility] | | | | performed at [facility];[address] | | LABORATORY | | | | [address];[place] | | | | | | [address] | | | | + + + + + + + + | Specimen | + + | Blood | + + + + + + + | Performing | Address | City/State/Zipcode | Phone Number | | Organization | | | | + + + + + | [facility] | [address] | [place] [address] | [phone] | + + + + + Comprehensive Metabolic Panel (11/07/2018 4:03 PDT) + + + + [...] 40 | 10 - 65 U/L | [facility] | | | | | [...] | | | | | | MDRD IDIN traceable | | | | | | equation.Testing | | | | | | performed at [facility], [address] | | | | | | [facility], | | | | | | [place] [address] | | | | + + + + + + + + | Specimen | + + | Blood | + + + + + + + | Performing | Address | City/State/Zipcode | Phone Number | | Organization | | | | + + + + + | [facility] | [address] | [place] [address] | [phone] | + + + + + Troponin I (11/06/2018 21:54 PDT) + + + + + + | Component | Value | Ref Range | Performed | Pathologist | | | | | At | Signature | + + + + + + | Troponin I | 0.045 (H)Comment: 0.04 | 0.00 - 0.04 | [facility] | | | | ng/mL or | [...] at | | | | | | [facility];[address] [place] [address] | | | | | | [facility];[place] [address] | | | | + + + + + + + + | Specimen | + + | Blood | + + + + + + + | Performing | Address | City/State/Zipcode | Phone Number | | Organization | | | | + + + + + | [facility] | [address] | [place] [address] | [phone] | + + + + + Protime INR (11/06/2018 17:32 PDT) + + + + + + | Component | Value | Ref Range | Performed | Pathologist | | | | | At | Signature | + + + + + + | INR | 1.3Comment: REFERENCE | | [facility] | | | | RANGE:0.9 - | [...] | | | | | performed at [facility];[address] | | [address];[place] | | | | | | [address] | | | | + + + + + + + + | Specimen | + + | Blood | + + + + + + + | Performing | Address | City/State/Zipcode | Phone Number | | Organization | | | | + + + + + | [facility] | [address] | [place] [address] | [phone] | + + + + + ECHO [...] +---------+ + + ECG 12 lead (11/06/2018 15:58 PDT) + + + + + + [...] + +---------+ + + Troponin I (11/06/2018 15:57 PDT) + + + + + + | Component | Value | Ref Range | Performed | Pathologist | | | | | At | Signature | + + + + + + | Troponin I | 0.066 (H)Comment: 0.04 | 0.00 - 0.04 | [facility] | | | | ng/mL or | [...] at | | | | | | [facility];[address];[place] [address] | | | | + + + + + + + + | Specimen | + + | Blood | + + + + + + + | Performing | Address | City/State/Zipcode | Phone Number | | Organization | | | | + + + + + | [facility] | [address] | [place] [address] | [phone] | + + + + + Magnesium (11/06/2018 15:57 PDT) + + + + + + | Component | Value | Ref Range | Performed | Pathologist | | | | | At | Signature | + + + + + + | Magnesium | 2.4Comment: Testing | 1.7 - 2.4 mg/dL | [facility] | | | | performed at [facility], [address] | | LABORATORY | | | | [address], | | | | | | [place] [address] | | | | + + + + + + + + | Specimen | + + | Blood | + + + + + + + | Performing | Address | City/State/Zipcode | Phone Number | | Organization | | | | + + + + + | [facility] | [address] | [place] [address] | [phone] | + + + + + documented in this encounter Visit Diagnoses + + | Diagnosis | + + | Pulmonary edema with congestive heart failure with reduced left ventricular function | | (HCC) - Primary Congestive heart failure, unspecified | + + | Acute hypoxemic respiratory failure (HCC) | + + | Chronic 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) Chronic combined systolic | | and diastolic heart failure | + + | Dilated cardiomyopathy (HCC) Other primary cardiomyopathies | + + | ESRD on hemodialysis ([facility]) End stage renal disease | [...] without cardiac tamponade | + + | Acute respiratory failure with hypoxia (HCC) Acute respiratory failure | + + | SOB (shortness of [...] mg, Oral, EVERY 4 | | 19 22:43 | | | | | HOURS PRN, Pain, Starting Tue | | PDT | | | | | 11/06/18 at 1709 | | | | | | + +--------+ +--------+------+------+ +-------+ +--------+---+---+ | Given | 11/07/19 | 650 mg | | | | | 19 18:03 | | | | | | PDT | | | | +-------+ +--------+---+---+ +---+---+ | | | +---+---+ + +---------+ +------+-------+---+ | albumin 25% IVPB 25 g 25 g, | New Bag | 11/09/19 | 25 g | 100 | | | Intravenous, Administer over 60 | | 19 14:45 | | mL/hr | | | Minutes, DIALYSIS - PRN, | | PDT | | | | | Hypotension, Starting Little 11/08/18 | | | | | | | at 1253, For 2 doses, Treatment | | | | | | | date(s): 11/07/2018, 11/08/2018, For | | | | | | | BP less than 100 mm Hg. DIALYSIS | | | | | | | USE ONLY - DISCONTINUE AFTER | | | | | | | DIALYSIS THERAPY IS COMPLETE, | | | | | | | Dialysis | | | | | | + +---------+ +------+-------+---+ +---------+ +------+-------+---+ | New Bag | 11/09/19 | 25 g | 100 | | | | 19 13:30 | | mL/hr | | | | PDT | | | | +---------+ +------+-------+---+ +---+---+ | | | +---+---+ + +-------+ +-------+---+---+ | aspirin chewable tablet 81 mg | Given | 11/10/19 | 81 mg | | | | 81 mg, Oral, DAILY, First dose on | | 19 12:40 | | | | | 11/06/18 at 1600 | | PDT | | | | + +-------+ +-------+---+---+ +-------+ +-------+---+---+ | Given | 11/09/19 | 81 mg | | | | | 19 8:47 | | | | | | PDT | | | | +-------+ +-------+---+---+ | Given | 11/08/19 | 81 mg | | | | | 19 10:58 | | | | | | PDT | | | | +-------+ +-------+---+---+ +---+---+ | | | +---+---+ + +-------+ +-------+---+---+ | clopidogrel (PLAVIX) tablet 75 | Given | 11/10/19 | 75 mg | | | | mg 75 mg, Oral, DAILY, First | | 19 12:40 | | | | | dose on 11/07/18 at 0900 | | PDT | | | | + +-------+ +-------+---+---+ +-------+ +-------+---+---+ | Given | 11/09/19 | 75 mg | | | | | 19 8:47 | | | | | | PDT | | | | +-------+ +-------+---+---+ | Given | 11/08/19 | 75 mg | | | | | 19 10:57 | | | | | | PDT [...] tablet 2 tablet 2 | | 19 14:48 | tablets | | | | tablet, Oral, DAILY PRN, | | PDT | | | | | Constipation, [...] & 1600, First dose on | | PDT | | | | | 11/06/18 at 1600 | | | | | | + +-------+ +-------+---+---+ +-------+ +-------+---+---+ | Given | 11/08/19 | 40 mg | | | | | 19 16:26 | | | | | | PDT | | | | +-------+ +-------+---+---+ | Given | 11/08/19 | 40 mg | | | | | 19 10:59 | | | | | | PDT [...] 0.5 mg 0.5 mg, | | 19 23:13 | | | | | Intravenous, ONCE, 11/06/18 at | | PDT | | | | | 2315, For 1 dose | | | | | | + +-------+ +--------+---+---+ +---+---+ | | | +---+---+ + +-------+ +--------+---+---+ | HYDROmorphone (DILAUDID) | Given | 11/08/19 | 0.5 mg | | | | injection 0.5 mg 0.5 mg, | | 19 5:48 | | | | | Intravenous, ONCE, Mon11/07/18 at | | PDT | | | | | 0500, For 1 dose | | | | | | + +-------+ +--------+---+---+ +---+---+ | | | +---+---+ + +-------+ +--------+---+---+ | HYDROmorphone (DILAUDID) | Given | 11/09/19 | 0.5 mg | | | | injection 0.5 mg 0.5 mg, | | 19 21:19 | | | | | Intravenous, EVERY 4 HOURS PRN, | | PDT | | | [...] 12:19 | | | | | | PDT | | | | +-------+ +--------+---+---+ +---+---+ | | | +---+---+ + +-------+ +------+---+---+ | HYDROmorphone (DILAUDID) | Given | 11/08/19 | 1 mg | | | | injection 1 mg 1 mg, | | 19 10:53 | | | | | Intravenous, ONCE, 11/07/18 at | | PDT | | | | | 1100, [...] on Little 11/08/18 at 1000 | | PDT | | | | [...] Oral, DAILY, First dose on | | PDT | | | | | 11/07/18 [...] 10:57 | | | | | | PDT | | | | +-------+ +-------+---+---+ +---+---+ | | | +---+---+ + +-------+ +--------+---+---+ | nitroglycerin (NITROSTAT) SL | Given | 11/07/19 | 0.4 mg | | | | tablet 0.4 mg 0.4 mg, | | 19 19:43 | | | | | Sublingual, EVERY 5 MIN PRN, | | PDT | | | | | Chest [...] mg | | | | | 19 19:26 | | | | | | PDT | | | | +-------+ +--------+---+---+ +---+---+ | | | +---+---+ + +-------+ +------+---+---+ | ondansetron (ZOFRAN ODT) | Given | 11/09/19 | 4 mg | | | | disintegrating tablet 4 mg 4 mg, | | 19 20:18 | | | | | Oral, EVERY 6 HOURS PRN, Nausea, | | PDT | | | | | Vomiting, Starting 11/06/18 at | | | | | | | 1717 | | | | | | + +-------+ +------+---+---+ +-------+ +------+---+---+ | Given | 11/08/19 | 4 mg | | | | | 19 5:53 | | | | | | PDT [...] | PRN, Pain, Moderate Pain, | | PDT | | | | | Starting 11/06/18 at 1955 | | | | | | + +-------+ +------+---+---+ +-------+ +------+---+---+ | Given | 11/10/19 | 5 mg | | | | | 19 3:58 | | | | | | PDT | | | | +-------+ +------+---+---+ | Given | 11/09/19 | 5 mg | | | | | 19 20:18 | | | | | | PDT | | | | +-------+ +------+---+---+ +---+---+ | | | +---+---+ + +-------+ +-------+---+---+ | pantoprazole (PROTONIX) DR | Given | 11/09/19 | 40 mg | | | | tablet 40 mg 40 mg, Oral, DAILY | | 19 8:47 | | | | | BEFORE BREAKFAST, First dose on | | PDT | | | | | 11/06/18 at 1730, Do not cut or | | | | | | | crush., Indication: GERD | | | | | | + +-------+ +-------+---+---+ +-------+ +-------+---+---+ | Given | 11/08/19 | 40 mg | | | | | 19 10:59 | | | | | | PDT | | | | +-------+ +-------+---+---+ +---+---+ | | | +---+---+ + +-------+ + +---+---+ | sevelamer carbonate (RENVELA) | Given | 11/10/19 | 1,600 mg | | | | tablet 1,600 mg 1,600 mg, Oral, | | 19 12:41 | | | | | 3 TIMES DAILY WITH MEALS, First | | PDT | | | | | dose on Mon11/06/18 at 1730, Do | | | | | | | not cut or crush tablets., | | | | | | + +-------+ + +---+---+ +-------+ + +---+---+ | Given | 11/09/19 | 1,600 mg | | | | | 19 17:32 | | | | | | PDT | | | | +-------+ + +---+---+ | Given | 11/09/19 | 1,600 mg | | | | | 19 8:47 | | | | | | PDT | | | | +-------+ + +---+---+ +---+---+ | | | +---+---+ + +-------+ +-------+---+---+ | valsartan (DIOVAN) tablet 40 mg | Given | 11/09/19 | 40 mg | | | | 40 mg, Oral, DAILY, First dose | | 19 8:49 | | | | | on Mon11/06/18 at 1730 | | PDT | | | | + +-------+ +-------+---+---+ +-------+ +-------+---+---+ | Given | 11/08/19 | 40 mg | | | | | 19 10:58 | | | | | | PDT | | | | +-------+ +-------+---+---+ +---+---+ | | | +---+---+ documented in this encounter
--- OUTSIDE RECORDS SUMMARY | ~2019-01-02 | XMS | Encounter Summary ---
Demographics + + + | Address | [address] | | | [place] [address] | + + + | Home Phone [...] | | | | | [place] [address] | | + + + + + | Thania Mallory | ECON | [address] | | | | | [place] [address] | | + + + + + | Deidra Weldon | ECON | [address] | | | | | [place] | | | | | [address] | | + + + + + Care Team Providers + +------+ + | Care Computer Forensics Investigator Name | Role | Phone | [...] class) | | | | ANNALISA Griffin Guy | [facility] | | | | | Rd [place], [place] | [place], [place] | | | | | [address] | [address] | | | | | [phone] | | | +--------+ + + + [...] Denise | | | | | | [place] | | | | | | [address] | | | | | | [phone] | | | | | | | | +--------+ + + + + documented as of this encounter Visit Diagnoses Not on filedocumented in this encounter"
--- OUTSIDE RECORDS SUMMARY | ~2019-01-02 | XMS | Encounter Summary ---
Demographics + + + | Address | [address] | | | [place] [address] | + + + | Home Phone [...] | | | | | [place] [address] | | + + + + + | Thania Mallory | ECON | [address] | | | | | [place] [address] | | + + + + + | Deidra Weldon | ECON | [address] | | | | | [place] | | | | | [address] | | + + + + + Care Team Providers + +------+ + | Care Income Tax Preparer Name | Role | Phone | + +------+ + | Shahid Camargo MD | PCP | | + +------+ + Encounter Details +--------+ + + + + | Date | Type | Department | Care Team | Description | +--------+ + + + + | 12/19/ | Document-Sc | UNKNOWN DEPARTMENT | Unknown . | | | 2012 | anned | [address] | | | | | | [facility] | | | | | | [place], [place] | | | | | | [address] | | | +--------+ + + + [...] Denise | | | | | | [place], [place] | | | | | | [address] | | | | | | [phone] | | | | | | | | +--------+ + + + + documented as of this encounter Visit Diagnoses Not on filedocumented in this encounter"
--- OUTSIDE RECORDS SUMMARY | ~2019-01-02 | XMS | Encounter Summary ---
Demographics + + + | Address | [address] | | | [place] [address] | + + + | Home Phone [...] | | | | | [place] [address] | | + + + + + | Thania Mallory | ECON | [address] | | | | | [place] [address] | | + + + + + | Deidra Weldon | ECON | [address] | | | | | [place] | | | | | [address] | | + + + + + Care Team Providers + +------+ + | Care Hardboard Panel Printer Name | Role | Phone | [...] issues with | | | | Rd [place], [place] | [place], [place] | pt's dad) | | | | [address] | [address] | | | | | [phone] | | | +--------+ + + + [...] [place] | | | | | | [address] | | | | | | [phone] | | | | | | | | +--------+ + + + + documented as of this encounter Visit Diagnoses Not on filedocumented in this encounter"
--- OUTSIDE RECORDS SUMMARY | ~2019-01-02 | XMS | Encounter Summary ---
Demographics + + + | Address | [address] | | | [place] [address] | + + + | Home Phone [...] | | | | | [place] [address] | | + + + + + | Thania Mallory | ECON | [address] | | | | | [place] [address] | | + + + + + | Deidra Weldon | ECON | [address] | | | | | [place] | | | | | [address] | | + + + + + Care Team Providers + +------+ + | Care Certified Corporate Travel Executive Name | Role | Phone | [...] Mailcode: | | | | | | [address] | [facility] | | | | | | [address] | [place] | | | | | | [place], | [place], [place] | | | | | | [place] | [address] | | | | | | [address] | Phone: | | | | | | Phone: | [phone] | | | | | | [phone] | | | | | | | Fax: | | | | | | | [phone] | | +--------+--------+ + + + + Encounter Details +--------+---------+ + + + | Date | Type | Department | Care Team | Description | +--------+---------+ + + + | 05/11/ | Office | Specialty Clinics | Sudhakar Joy | [facility] | | 2016 | Visit | at [facility] [address] | [address], [address] | ([place] | | | | [address] | [address] | purpura) nephritis | | | | Mailcode: [facility]7 | [place], [place] | (Primary Dx); Anemia | | | | [place] | [address]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
--- OUTSIDE RECORDS SUMMARY | ~2019-01-02 | XMS | Encounter Summary ---
Demographics + + + | Address | [address] | | | [place] [address] | + + + | Home Phone [...] | | | | | [place] [address] | | + + + + + | Thania Mallory | ECON | [address] | | | | | [place] [address] | | + + + + + | Deidra Weldon | ECON | [address] | | | | | [place] | | | | | [address] | | + + + + + Care Team Providers + +------+ + | Care College President Name | Role | Phone | [...] 2005 | Registratio | Anil Elizondo | [phone] | | | | n | [address] Mailcode: [address] | | | | | | [place], [place] | | | | | | [address] | | | | | | [phone] | | | +--------+ + + + [...] | | | | | | [place], [place] | | | | | | [address] | | | | | | [phone] | | | | | | | [...] | [facility] | | | PATHOLOGY | [facility] | | DEPARTMENT | | [...] Kt, | | | | | | M.D./PathologistT:02/02/ | | | | | | 06:bonny [...] Fuente | | | | | | Rufino, Sudarshan Garcia | | | | | | [facility], | | | | | | [place],labeled benton | | | | | | kidney [...] number | | | | | | [id number]/lab | | | | | | Microscopic [...] wall | | | | | | [id number]: | | | | | | NegativeFibrinogen: [...] Meraz | | | | | | Emiri | | | | | | cortez Signed 02/06/2006 | | | | + + + + + + + + | Specimen | + + | | + + + + + | Narrative | Performed At | + + + | Ordered by Rufino CARRASCO | | | DEPARTMENT OF | | | PATHOLOGY | + + + + + + + + | Performing | Address | City/State/Zipcode | Phone Number | | Organization | | | | + + + + + | [facility] | [address] | [place] [address] | | | PATHOLOGY | [place] | | | + + + + + | [facility] | [address] | [place] [address] | | | PATHOLOGY | [place] | | | + + + + + documented in this encounter Visit Diagnoses Not on filedocumented in this encounter"
--- OUTSIDE RECORDS SUMMARY | ~2019-01-02 | XMS | Encounter Summary ---
Demographics + + + | Address | [address] | | | [place] [address] | + + + | Home Phone [...] | | | | | [place] [id number] | | + + + + + | Thania Mallory | ECON | [address] | | | | | [place] [address] | | + + + + + | Deidra Weldon | ECON | [address] | | | | | [place] | | | | | [address] | | + + + + + Care Team Providers + +------+ + | Care Graphic Designer Name | Role | Phone | [...] | | | [place], | [place] [address] | | | | | [place] [address] | [phone] | | | | | | | [...] Denise | | | | | | [place], [place] | | | | | | [address] | | | | | | [phone] | | | | | | | | +--------+ + + + + documented as of this encounter Visit Diagnoses Not on filedocumented in this encounter"
--- OUTSIDE RECORDS SUMMARY | ~2019-01-02 | XMS | Encounter Summary ---
Demographics + + + | Address | [address] | | | [place] [address] | + + + | Home Phone [...] | | | | | [place] [address] | | + + + + + | Thania Mallory | ECON | [address] | | | | | [place] [phone] | | + + + + + | Deidra Weldon | ECON | [address] | | | | | [place] | | | | | [phone] | | + + + + + Care Team Providers + +------+ + | Care Service Coordinator Name | Role | Phone | [...] | ANNALISA [facility] | [facility] | | | | | [address] [place], [place] | [place], [place] | | | | | [address] | [address] | | | | | [phone] | | | +--------+ + + + [...] [place] | | | | | | [address] | | | | | | [phone] | | | | | | | | +--------+ + + + + documented as of this encounter Visit Diagnoses Not on filedocumented in this encounter"
--- OUTSIDE RECORDS SUMMARY | ~2019-01-02 | XMS | Encounter Summary ---
Demographics + + + | Address | [address] | | | [place] [address] | + + + | Home Phone [...] | | | | | [place] [address] | | + + + + + | Thania Mallory | ECON | [address] | | | | | [place] [address] | | + + + + + | Deidra Weldon | ECON | [address] | | | | | [place] | | | | | [address] | | + + + + + Care Team Providers + +------+ + | Care Mortar Maker Name | Role | Phone | + +------+ + | Shahid Camargo MD | PCP | | + +------+ + Encounter Details +--------+ + + + + | Date | Type | Department | Care Team | Description | +--------+ + + + + | 12/19/ | Document-Sc | UNKNOWN DEPARTMENT | Unknown . | | | 2012 | anned | [address] | | | | | | [facility] | | | | | | [place], [place] | | | | | | [address] | | | +--------+ + + + [...] Denise | | | | | | [place], [place] | | | | | | [address] | | | | | | [phone] | | | | | | | | +--------+ + + + + documented as of this encounter Visit Diagnoses Not on filedocumented in this encounter"
--- OUTSIDE RECORDS SUMMARY | ~2019-01-02 | XMS | Encounter Summary ---
Demographics + + + | Address | [address] | | | [place] [address] | + + + | Home Phone [...] | | | | | [place] [address] | | + + + + + | Thania Mallory | ECON | [address] | | | | | [place] [address] | | + + + + + | Deidra Weldon | ECON | [address] | | | | | [place] | | | | | [address] | | + + + + + Care Team Providers + +------+ + | Care Natural Resource Specialist Name | Role | Phone | [...] | lab/Provider | | | | Dustin [place], [place] | [place], [place] | updated) | | | | [address] | [address] | | | | | [phone] | [phone] | | | | | | | [...] Denise | | | | | | [place], [place] | | | | | | [address] | | | | | | [phone] | | | | | | | | +--------+ + + + + documented as of this encounter Visit Diagnoses Not on filedocumented in this encounter"
--- OUTSIDE RECORDS SUMMARY | ~2019-01-02 | XMS | Encounter Summary ---
Demographics + + + | Address | [address] | | | [place] [address] | + + + | Home Phone [...] | | | | | [place] [address] | | + + + + + | Thania Mallory | ECON | [address] | | | | | [place] [address] | | + + + + + | Deidra Weldon | ECON | [address] | | | | | [place] | | | | | [address] | | + + + + + Care Team Providers + +------+ + | Care Sheet Metal Worker Helper Name | Role | Phone | [...] Hoffmann | | | | | ANNALISA [facility] | [facility] | | | | | Rd [place], [place] | [place], [place] | | | | | [address] | [address] | | | | | [phone] | | | +--------+ + + + [...] | | | | | | [place] | | | | | | [address] | | | | | | [phone] | | | | | | | | +--------+ + + + + documented as of this encounter Visit Diagnoses Not on filedocumented in this encounter"
--- OUTSIDE RECORDS SUMMARY | ~2019-01-02 | XMS | Encounter Summary ---
Demographics + + + | Address | [address] | | | [place] [address] | + + + | Home Phone [...] | | | | | [place] [address] | | + + + + + | Thania Mallory | ECON | [address] | | | | | [place] [address] | | + + + + + | Deidra Weldon | ECON | [address] | | | | | [place] | | | | | [address] | | + + + + + Care Team Providers + +------+ + | Care Bracer Name | Role | Phone | + +------+ + | Jonathan Alonso MD | PCP | | + +------+ + Encounter Details +--------+------+ + + + | Date | Type | Department | Care Team | Description | +--------+------+ + + + | 01/20/ | Lab | Lab Center at [facility] | | 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 [address] | | MEDICARE 2728; 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[place], [place]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; | | | | [address] | | Hemodialysis status | | | | [phone] | | ([facility]); Chronic | | | | | | kidney disease, | | | | | | stage V ([facility]) | +--------+------+ + + + Social [...] Denise | | | | | | [place], [place] | | | | | | [address] | | | | | | [phone] | | | | | | | [...] | e | 9:59 AM | MEDICARE 6915 [facility] | procedure are in the | [...] | | | stage V ([facility]) | | + +--------+ + + [...] | | | stage V ([facility]) | | + +--------+ + + [...] | | | stage V ([facility]) | | + +--------+ + + [...] | | | stage V ([facility]) | | + +--------+ + + [...] | | | stage V ([facility]) | | + +--------+ + + + | HIV-1,2 AB/HIV-1 P24 | Routin | 01/20/2015 | Allergic purpura- | Results for this | | AG SCRN | e | 9:59 AM | MEDICARE 2728 [facility] | procedure are in the | | | | PST | ([facility] | results section. | | | [...] the | | | | PST | ([facility] | results section. | | | | [...] | | | PST | ([facility] | results section. | | [...] | | | PST | ([facility] | results section. | | [...] the | | | | PST | ([facility] | results section. | | | [...] the | | | | PST | ([facility] | results section. | | | | [...] the | | | | PST | ([facility] | results section. | | | [...] | + + + + + | [facility] - | [address] | [place] [address] | | | [place] | | | | + + + [...] [facility] | [address] | [place] [address] | | | SERVICES, CORE | PARK [...] | + + + + + | [facility] | [address] | [place] [address] | | | SERVICES, SPECIAL | PARK [...] + + + | [facility] | [address] | [place] [address] | | | DIAGNOSTIC | [address] [...] + | [facility] - | [address] | [place] [address] | | | [place] | | | | + + + [...] + | [facility] - | [address] | [place] [address] | | | [place] | | | [...] | + + + + + | [facility] - | [address] | [place] [address] | | | [place] | | | [...] | + + + + + | [facility] - | [address] | [place] [address] | | | [place] | | | [...] by | | | | | | [address] | | | | | | Pippa Sauceda, [facility] | | | | | | [address] | | | | | | [phone].Craft Dragon. | | | | | | annalee, [...] [facility] | [address] | [place], [place] | | | UNIV PTH - INTFC | | [address] | | + + + + + [...] | + + + + + | [facility] - | [address] | [place] [address] | | | [place] | | | | + + + [...] by | | | | | | [address] | | | | | | Pippa Sauceda, [place] | | | | | | [address] | | | | | | [phone].Ariistolab. | | | | | | Faisal [...] [facility] | [address] | [place], [place] | | | UNIV PTH - INTFC | | [address] | | + + + + + [...] [facility] | [address] | [place] [address] | | | SERVICES, CORE | PARK [...] | + + + + + | [facility] | [address] | [place] [address] | | | SERVICES, CORE | LONG [...] [facility] | [address] | [place] [address] | | | SERVICES, CORE | PARK [...] [facility] | [address] | [place] [address] | | | SERVICES, CORE | PARK [...] | + + + + + | [facility] | [address] | [place] [address] | | | SERVICES, CORE | LONG [...] | | | LABORATORY | | | CAMBODIAN | | | SERVICES, | | | [...] [facility] | [address] | [place] [address] | | | SERVICES, CORE | PARK [...]
--- OUTSIDE RECORDS SUMMARY | ~2019-01-02 | XMS | Encounter Summary ---
Demographics + + + | Address | [address] | | | [place] [address] | + + + | Home Phone [...] | | | | | [place] [address] | | + + + + + | Thania Mallory | ECON | [address] | | | | | [place] [address] | | + + + + + | Deidra Weldon | ECON | [address] | | | | | [place] | | | | | [address] | | + + + + + Care Team Providers + +------+ + | Care County Commissioner Name | Role | Phone | + [...] | Update | | | | ANNALISA [facility] | [facility] | | | | | Rd [place], [place] | [place], [place] | | | | | [address] | [address] | | | | | [phone] | | | +--------+ + + + [...] Denise | | | | | | [place], [place] | | | | | | [address] | | | | | | [phone] | | | | | | | | +--------+ + + + + documented as of this encounter Visit Diagnoses + + | Diagnosis | + + | 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
--- OUTSIDE RECORDS SUMMARY | ~2019-01-02 | XMS | Encounter Summary ---
Demographics + + + | Address | [address] | | | [place] [address] [...] | | | | | [place] [address] | | + + + + + | Thania Mallory | ECON | [address] | | | | | [place] [address] | | + + + + + | Deidra Weldon | ECON | [address] | | | | | [place] | | | | | [address] | | + + + + + Care Team Providers + +------+ + | Care Enlisted Advisor Name | Role | Phone | [...] consultation ([place] SW | | | | ANNALISA Hoffmann [facility] | [facility] [address] | follow-up on | | | | Rd [place], [place] | [place], [place] | [place] | | | | [address] | [address] | care plan) | | | | [phone] | | | +--------+ + + + [...] | | | | | | [place] | | | | | | [address] | | | | | | [phone] | | | | | | | | +--------+ + + + + documented as of this encounter Visit Diagnoses Not on filedocumented in this encounter"
--- OUTSIDE RECORDS SUMMARY | ~2019-01-02 | XMS | Encounter Summary ---
Demographics + + + | Address | [address] | | | [place] [address] | + + + | Home Phone [...] | | | | | [place] [address] | | + + + + + | Thnaia Mallory | ECON | [address] | | | | | [place] [address] | | + + + + + | Deidra Weldon | ECON | [address] | | | | | [place] | | | | | [address] | | + + + + + Care Team Providers + +------+ + | Care Business Management Intern Name | Role | Phone [...] | | | | [facility] | [place], [place] | | | | | [address] | [address] | | | | | Caro Chan Mailcode: | [phone] | | | | | [address] | | | | | | [place], [place] | | | | | | [address] | | | | | | [phone] | | | +--------+ + + + [...] Denise | | | | | | [place], [place] | | | | | | [address] | | | | | | [phone] | | | | | | | | +--------+ + + + + documented as of this encounter Visit Diagnoses Not on filedocumented in this encounter"
--- OUTSIDE RECORDS SUMMARY | ~2019-01-02 | XMS | Encounter Summary ---
Demographics + + + | Address | [address] | | | [place] [address] | + + + | Home Phone [...] | | | | | [place] [address] | | + + + + + | Thania Mallory | ECON | [address] | | | | | [place] [address] | | + + + + + | Deidra Weldon | ECON | [address] | | | | | [place] | | | | | [address] | | + + + + + Care Team Providers + +------+ + | Care Water Softener Installer Name | Role | Phone | [...] Everywher | | | | ANNALISA Hoffmann [facility] | [address] | Query) | | | | Rd [place], [place] | [place], [place] | | | | | [address] | [address] | | | | | [phone] | [phone] | | | | | | | [...] [place] | | | | | | [address] | | | | | | [phone] | | | | | | | | +--------+ + + + + documented as of this encounter Visit Diagnoses Not on filedocumented in this encounter"
--- OUTSIDE RECORDS SUMMARY | ~2019-01-02 | XMS | Encounter Summary ---
Demographics + + + | Address | [address] | | | [place] [address] | + + + | Home Phone [...] | | | | | [place] [address] | | + + + + + | Thania Mallory | ECON | [address] | | | | | [place] [address] | | + + + + + | Deidra Weldon | ECON | [address] | | | | | [place] | | | | | [address] | | + + + + + Care Team Providers + +------+ + | Care Brake Assembler Name | Role | Phone | [...] ANNALISA Hoffmann | | | | | ([facility]) | [address] | [address] | | | | | Procedures | [address] | Rd Mailcode: | | | | | TRANSTHORACI | [place], [place] | [facility] | | | | | C | [address] | [address] | | | | | ECHOCARDIOGR | Phone: | [place], [place] | | | | | AM, PEDS | [phone] | [address] | | | | | | Fax: | Phone: | | | | | | [phone] | [phone] | | | | | | | Fax: | | | | | | | [phone] | +--------+--------+ + + + + Reason [...] | Update | | | | [address] [facility] | [facility] | | | | | Rd [place], [place] | [place], [place] | | | | | [address] | [address] | | | | | [phone] | | | +--------+ + + + [...] | | | | | | [place], [place] | | | | | | [address] | | | | | | [phone] | | | | | | | | +--------+ + + + + + +------+--------+ + + | Name | Type | Priori | Associated Diagnoses | Order Schedule | | | | ty | | | + +------+--------+ + + | CELESTINO JAMA RES-EVA | Lab | Routin | Allergic purpura- | Expected: 11/29/2012 | | | | e | MEDICARE 7588 | (Approximate), | | | | | [...] view image for the detailed interpretation from [employer] results. | CARDIOLOGY | + + + + + | Procedure Note | + + | Interface, Cardiology Results - 12/21/2012 9:38 AM PDT Please click on view image | | for the detailed interpretation from [employer] results. | + + + + + + + | Performing | Address | City/State/Zipcode | Phone Number | | Organization | | | | + + + + + | [facility] | [address] | [place], [place] | | | CARDIOLOGY | [address] | [address] | | + + + + + LIT HLA-B WILEY ZHANG (12/20/2012 10:02 AM PDT) + + | Specimen | + + | Blood - Blood | + + + + + + + | Performing | Address | City/State/Zipcode | Phone Number | | Organization | | | | + + + + + | [facility] - | [address] | [place] [address] | | | IMMUNOGENETICS/TRANS | [address] [...] [facility] - | [address] | [place] [address] | | | IMMUNOGENETICS/TRANS | [address] [...] - | [address] | [place], [place] | | | IMMUNOGENETICS/TRANS | [address] [...] - | [address] | [place], [place] | | | IMMUNOGENETICS/TRANS | [address] [...] [facility] - | [address] | [place] [address] | | | IMMUNOGENETICS/TRANS | [address] [...] [facility] - | [address] | [place] [address] | | | IMMUNOGENETICS/TRANS | [address] [...] | | + +---------+ + + | [facility] DEPARTMENT OF | | | [...] [facility] | | | , SERUM | [facility],[address] | | REG UNIV | | | | [address], [facility] | | PTH - INTFC | | | | [address] | | | | | | [phone].Unsociallab. | | | | | | annalee, Faisal Caraballo, | | | | | | , [...] [facility] | [address] | [place], [place] | | | UNIV PTH - INTFC | | [address] | | + + + + + [...] | + + + + + | [facility] | [address] | [place] [address] | | | SERVICES, HOMERO | LONG [...] | + + + + + | [facility] | [address] | [place] [address] | | | SERVICES, CORE | LONG [...] + | [facility] - | [address] | [place] [address] | | | [place] | | | [...] [facility] | [address] | [place] [address] | | | SERVICES, CORE | PARK [...] | + + + + + | [facility] | [address] | [place] [address] | | | SERVICES, CORE | [address] | | | + + + + + ROCÍO GARAY (12/20/2012 8:39 AM PDT) + + + [...] | + + + + + | [facility] | [address] | [place] [address] | | | SERVICES, CORE | LONG [...] - | | | | | | [facility] | | + + + + + + + + | Specimen | + + | Blood - Blood | + + + + + + + | Performing | Address | City/State/Zipcode | Phone Number | | Organization | | | | + + + + + | [facility] | [address] | [place] [address] | | | [place] | | | | + + + [...] at: | | | | | | http://www.cdc.gov/nchstp/tb/pubs/tbfactssheets/225530.htm | | | Test performed by: [facility] [address] | | [address] [place] [address] | | + + + + + [...] | + + + + + | [facility] | [address] | [place] [address] | | | SERVICES, SPECIAL | PARK [...] gene at | DIAGNOSTIC | | nucleotide [address]221. Please note that this assay only detects the | LABORATORIES | | [id number] point mutation and therefore a normal result [...] has been analyzed for the presence of [id number] | | | mutation in the prothrombin [...] | | Heterozygotes for the common prothrombin D66740X mutation constitute | | | approximately 2% of the normal white population (1,2). | | | References: 1.) Edwinat et al. Blood 88, 6847-6638 (1996). 2.) Ricardo | | | et al. Circulation 99, 999-1004 (1998). 3.) Al Montalvo, and | | | Chase. Amer J Clin Path 155, 439-47 (2001). This test was | | | developed and its performance characteristics determined by the [facility] | | | [facility]. It has | | | not been cleared or approved by the Food and Drug Administration. | | | FDA approval is not required for clinical use of this test, and | | | therefore validation was done as required under the requirements of | | | the Clinical Laboratory Improvement Act of 1988. The [facility] | [facility] is a fully | | | licensed and/or accredited clinical laboratory under CLIA, CAP, and | | | the [facility]. Please note that our lab now also [...] + | Performing | Address | City/State/[facility] Psychiatric Centercode | Phone Number | | Organization | | | | + + + + + | [facility] | [address] | [place] [address] | | | DIAGNOSTIC | [address] [...] | + + + + + | [facility] | [address] | [place] [address] | | | SERVICES, CORE | [address] | | | + + + + + MAGNESIUM, PLASMA (12/20/2012 8:39 AM PDT) + +---------+ + + + | Component | Value | Ref Range | Performed | Pathologist | | | | | At | Signature | + +---------+ + + + | MAGNESIUM,P | 2.6 (H) | 1.8 - 2.5 mg/dL | [facility] | | | [facility] | | | LABORATORY | | | [...] | + + + + + | [facility] | [address] | [place] [address] | | | RIKY, CORE | [address] | | | [...] [facility] | [address] | [place] [address] | | | SERVICES, HOMERO | LONG [...] | + + + + + | [facility] | [address] | [place] [address] | | | HOMERO LAN | LONG [...] | | | | | | [place] [address] | | | | | | [phone].aruplab. | | | | | | Faisal [...] [facility] | [address] | [place], [place] | | | UNIV PTH - INTFC | | [address] | | + + + + + [...] | + + + + + | [facility] | [address] | [place] [address] | | | SERVICES, SPECIAL | PARK [...] + + + + | [facility] | [address] | [place] [address] | | | DIAGNOSTIC | [address] [...] + | [facility] - | [address] | [place] [address] | | | [place] | | | [...] + | [facility] - | [address] | [place] [address] | | | [place] | | | [...] + | [facility] - | [address] | [place] [address] | | | [place] | | | | + + + [...] + | [facility] - | [address] | [place] [address] | | | [place] | | | [...] less......Not | | | | | | Lmqxqbuz44.0-21.9 | | | | | | U/mL.........Indetermina [...] available | | | | | | [email or web address] | | | | | | vdx.Performed by [facility] | | | | | | [facility],[address] | | | | | | Rajendra, [facility] [address] | | | | | | [phone].aruplab. | | | | | | Faisal [...] [facility] | [address] | [place], [place] | | | UNIV PTH - INTFC | | [address] | | + + + + + [...] + | [facility] - | [address] | [place] [address] | | | [place] | | | | + + + [...] | + + + + + | [facility] | [address] | [place] [address] | | | SERVICES, CORE | LONG [...] by | | | | | | [facility] | | | | | | [address] [place], [facility],[place] | | | | | | [address] | | | | | | [phone].Unsociallab. | | | | | | [facility], Faisal Caraballo, | | | | | | , [...] [facility] | [address] | [place], [place] | | | UNIV PTH - INTFC | | [address] | | + + + + + [...] + + | [facility] | [address] | [place] [address] | | | SERVICES, CORE | PARK [...] [facility] | [address] | [place] [address] | | | SERVICES, CORE | PARK [...] + + + + + | [facility] | [address] | [place] [address] | | | HOMERO LAN | [address] | | | + [...]
--- OUTSIDE RECORDS SUMMARY | ~2019-01-02 | XMS | Encounter Summary ---
Demographics + + + | Address | [address] | | | [place] [address] | + + + | Home Phone [...] | | | | | [place] [address] | | + + + + + | Thania Mallory | ECON | [address] | | | | | [place] [address] | | + + + + + | Deidra Weldon | ECON | [address] | | | | | [place] | | | | | [address] | | + + + + + Care Team Providers + +------+ + | Care Supervisor Packing Name | Role | Phone | + [...] | 06/04/ | Telephone | Transplant | Mariza Hsu | Social Work Waitlist | | 2014 | | Coordinators [address] | [address] | Update (changes to | | | | [address] | [address] | pt's living/support | | | | Rd [place], [place] | [place], [place] | situation) | | | | [address] | [address] | | | | | [phone] | | | +--------+ + + + [...] Denise | | | | | | [place] | | | | | | [address] | | | | | | [phone] | | | | | | | | +--------+ + + + + documented as of this encounter Visit Diagnoses Not on filedocumented in this encounter"
--- OUTSIDE RECORDS SUMMARY | ~2019-01-02 | XMS | Encounter Summary ---
Demographics + + + | Address | [address] | | | [place] [address] | + + + | Home Phone [...] | | | | | [place] [address] | | + + + + + | Thania Mallory | ECON | [address] | | | | | [place] [address] | | + + + + + | Deidra Weldon | ECON | [address] | | | | | [place] | | | | | [address] | | + + + + + Care Team Providers + +------+ + | Care Professional Programmer Analyst Name | Role | Phone | [...] | | | | | [address] [place], | | | | | | [place] [address] | | | +--------+ + + + [...] Denise | | | | | | [place], [place] | | | | | | [address] | | | | | | [phone] | | | | | | | [...] + | [facility] - | [address] | [place] [address] | | | IMMUNOGENETICS/TRANS | [address] | | | | [facility] | | | | + + + + + documented in this encounter Visit Diagnoses + + | Diagnosis | + + | End stage renal disease (HCC) End stage renal disease | + + documented in this encounter"
--- OUTSIDE RECORDS SUMMARY | ~2019-01-02 | XMS | Encounter Summary ---
Demographics + + + | Address | [address] | | | [place] [address] | + + + | Home Phone [...] | Author | [facility] (Historical as of | | | 10-20-18) | + + + | Organization | [facility] (Historical as of | | | 10-20-18) [...] Team Providers + +------+ + | Care Bass Viol Repairer Name | Role | Phone | [...] | 2019 | | Pulmonology [address] | [facility] | | | | | Shantelle PRAJAPATI | | | | | | [place] | | | | | | [address] | | | | | | [phone] | | | +--------+ + + + [...]
--- OUTSIDE RECORDS SUMMARY | ~2019-01-02 | XMS | Encounter Summary ---
Demographics + + + | Address | [address] | | | [place] [address] | + + + | Home Phone [...] | | | | | [place] [address] | | + + + + + | Thania Mallory | ECON | [address] | | | | | [place] [address] | | + + + + + | Deidra Weldon | ECON | [address] | | | | | [place] | | | | | [address] | | + + + + + Care Team Providers + +------+ + | Care Environmental Quality Analyst Name | Role | Phone | [...] + + | 12/17/ | Telephone | Transplant | Kelsi Martinez, | Laboratory Test | | 2015 | | Coordinators 3181 | RN [address] | Requested (Drug | | | | [facility] | [facility] | screens) | | | | Rd [place], [place] | [facility] [place] | | | | | [address] | [address] | | | | | [phone] | | | +--------+ + + + [...] Denise | | | | | | [place] | | | | | | [address] | | | | | | [phone] | | | | | | | | +--------+ + + + + documented as of this encounter Visit Diagnoses Not on filedocumented in this encounter"
--- OUTSIDE RECORDS SUMMARY | ~2019-01-02 | XMS | Encounter Summary ---
Demographics + + + | Address | [address] | | | [place] [address] | + + + | Home Phone [...] | | | | | [place] [address] | | + + + + + | Thania Mallory | ECON | [address] | | | | | [place] [address] | | + + + + + | Deidra Weldon | ECON | [address] | | | | | [place] | | | | | [address] | | + + + + + Care Team Providers + +------+ + | Care Tool Shaper Setup Operator Name | Role | Phone | [...] Update | | | | [place] | [facility] | | | | | [facility] | [place], [place] | | | | | [address] [place] | [address] | | | | | [facility] Mailcode: | | | | | | [address] | | | | | | [place], [place] | | | | | | [address] | | | | | | [phone] | | | +--------+ + + + [...] Denise | | | | | | [place] | | | | | | [address] | | | | | | [phone] | | | | | | | | +--------+ + + + + documented as of this encounter Visit Diagnoses Not on filedocumented in this encounter"
--- OUTSIDE RECORDS SUMMARY | ~2019-01-02 | XMS | Encounter Summary ---
Demographics + + + | Address | [address] | | | [place] [address] | + + + | Home Phone [...] | | | | | [place] [address] | | + + + + + | Thania Mallory | ECON | [address] | | | | | [place] [address] | | + + + + + | Deidra Weldon | ECON | [address] | | | | | [place] | | | | | [address] | | + + + + + Care Team Providers + +------+ + | Care Production Support Developer Name | Role | Phone | [...] (Evaluation | | | | ANNALISA Hoffmann [facility] | [facility] [address] [facility] [address] | Scheduled) | | | | [place], [place] | [place], [place] | | | | | [address] | [address] | | | | | [phone] | [phone] | | | | | | | [...] Denise | | | | | | [place] | | | | | | [address] | | | | | | [phone] | | | | | | | | +--------+ + + + + documented as of this encounter Visit Diagnoses Not on filedocumented in this encounter"
--- OUTSIDE RECORDS SUMMARY | ~2019-01-02 | XMS | Encounter Summary ---
Demographics + + + | Address | [address] | | | [place] [address] | + + + | Home Phone [...] | | | | | [place] [address] | | + + + + + | Thania Mallory | ECON | [address] | | | | | [place] [address] | | + + + + + | Deidra Weldon | ECON | [address] | | | | | [place] | | | | | [address] | | + + + + + Care Team Providers + +------+ + | Care Gelatin Maker Utility Name | Role | Phone | + [...] ANNALISA Hoffmann | | | | | [place] | [address] | | | | | [facility] | [place], [place] | | | | | [address] | [address] | | | | | Caro Chan Mailcode: | [phone] | | | | | [address] | | | | | | [place], [place] | | | | | | [address] | | | | | | [phone] | | | +--------+ + + + [...] Denise | | | | | | [place], [place] | | | | | | [address] | | | | | | [phone] | | | | | | | | +--------+ + + + + documented as of this encounter Visit Diagnoses Not on filedocumented in this encounter"
--- OUTSIDE RECORDS SUMMARY | ~2019-01-02 | XMS | Encounter Summary ---
Demographics + + + | Address | [address] | | | [place] [address] | + + + | Home Phone [...] | | | | | [place] [address] | | + + + + + | Thania Mallory | ECON | [address] | | | | | [place] [address] | | + + + + + | Deidra Weldon | ECON | [address] | | | | | [place] | | | | | [address] | | + + + + + Care Team Providers + +------+ + | Care Air Bag Buffer Name | Role | Phone | + [...] + + | 03/07/ | Documentati | Transplant | Kelsi Martinez | Waitlist (Correct | | 2014 | on | Coordinators 3181 | RN [address] | list date) | | | | ANNALISA Hoffmann [facility] | [facility] | | | | | Rd [place], [place] | [place], [place] | | | | | [address] | [address] | | | | | [phone] | | | +--------+ + + + [...] Denise | | | | | | [place], [place] | | | | | | [address] | | | | | | [phone] | | | | | | | | +--------+ + + + + documented as of this encounter Visit Diagnoses Not on filedocumented in this encounter"
--- OUTSIDE RECORDS SUMMARY | ~2019-01-02 | XMS | Encounter Summary ---
Demographics + + + | Address | [address] | | | [place] [address] | + + + | Home Phone [...] | | | | | [place] [address] | | + + + + + | Thania Mallory | ECON | [address] | | | | | [place] [address] | | + + + + + | Deidra Weldon | ECON | [address] | | | | | [place] | | | | | [address] | | + + + + + Care Team Providers + +------+ + | Care Teletray Operator Name | Role | Phone | [...] Update | | | | ANNALISA Hoffmann [facility] | [facility] | | | | | Rd [place], [place] | [place], [place] | | | | | [address] | [address] | | | | | [phone] | | | +--------+ + + + [...] | | | | | | [place], [place] | | | | | | [address] | | | | | | [phone] | | | | | | | | +--------+ + + + + documented as of this encounter Visit Diagnoses Not on filedocumented in this encounter"
--- OUTSIDE RECORDS SUMMARY | ~2019-01-02 | XMS | Encounter Summary ---
Demographics + + + | Address | [address] | | | [place] [address] | + + + | Home Phone [...] | | | | | [place] [address] | | + + + + + | Thania Mallory | ECON | [address] | | | | | [place] [address] | | + + + + + | Deidra Weldon | ECON | [address] | | | | | [place] | | | | | [address] | | + + + + + Care Team Providers + +------+ + | Care Postdoctoral Research Fellow Name | Role | Phone | [...] renal | [address] | [address] | | | | | disease | [address] | [address] | | | | | ([facility]) | [address] | [place], | | | | | Allergic | [place], [place] | [place] | | | | | purpura | [address] | [address] | | | | | ([facility]) | Phone: | Phone: | | | | | | [phone] | [phone] | | | | | | Fax: | Fax: | | | | | | [phone] | [phone] | +--------+--------+ + + + + Encounter Details +--------+---------+ + + + | Date | Type | Department | Care Team | Description | +--------+---------+ + + + | 12/19/ | Office | Kidney Transplant | Clinic, Ltx 3181 | Patient on | | 2012 | Visit | at Physician[facility] | 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 El Starr MD security rover, Division of Abdominal Organ Transplantation Professor of Urology CC: Sudhakar Joy MD [address] [place] [address] documented in this encoun ter Plan of Treatment +--------+ + + + + | Date | Type | Specialty | Care Team | Description | +--------+ + + + + | 05/04/ | Hospital | Adult Acute Care | El Starr MD | | | 2022 | Encounter | | [address] | | | | | | [place], [place] | | | | | | [address] | | | | | | [phone] | | | | | | | [...]
--- OUTSIDE RECORDS SUMMARY | ~2019-01-02 | XMS | Encounter Summary ---
Demographics + + + | Address | [address] | | | [place] [address] | + + + | Home Phone [...] | | | | | [place] [address] | | + + + + + | Thania Mallory | ECON | [address] | | | | | [place] [address] | | + + + + + | Deidra Weldon | ECON | [address] | | | | | [place] | | | | | [address] | | + + + + + Care Team Providers + +------+ + | Care Toilet Products Molder Name | Role | Phone | [...] consultation (pt | | | | [address] | [address] | request to change | | | | Rd [place], [place] | [place], [place] | clinic appt) | | | | [address] | [address] | | | | | [phone] | | | +--------+ + + + [...] [place] | | | | | | [address] | | | | | | [phone] | | | | | | | | +--------+ + + + + documented as of this encounter Visit Diagnoses Not on filedocumented in this encounter"
--- OUTSIDE RECORDS SUMMARY | ~2019-01-02 | XMS | Encounter Summary ---
Demographics + + + | Address | [address] | | | [place] [address] | + + + | Home Phone [...] | | | | | [place] [address] | | + + + + + | Thania Mallory | ECON | [address] | | | | | [place] [address] | | + + + + + | Deidra Weldon | ECON | [address] | | | | | [place] | | | | | [address] | | + + + + + Care Team Providers + +------+ + | Care Outside Repairer Special Name | Role | Phone | + [...] [place], | | | | | [place], | [place] [address] | | | | | [place] [address] | [phone] | | | | | | | [...] Denise | | | | | | [place], [place] | | | | | | [address] | | | | | | [phone] | | | | | | | | +--------+ + + + + documented as of this encounter Visit Diagnoses Not on filedocumented in this encounter"
--- OUTSIDE RECORDS SUMMARY | ~2019-01-02 | XMS | Encounter Summary ---
Demographics + + + | Address | [address] | | | [place] [address] | + + + | Home Phone [...] | | | | | [place] [address] | | + + + + + | Thania Mallory | ECON | [address] | | | | | [place] [address] | | + + + + + | Deidra Weldon | ECON | [address] | | | | | [place] | | | | | [address] | | + + + + + Care Team Providers + +------+ + | Care Api Architect Name | Role | Phone | [...] Shun | | | | | ANNALISA [facility] | [facility] | | | | | Rd [place], [place] | [place], [place] | | | | | [address] | [address] | | | | | [phone] | | | +--------+ + + + [...] Denise | | | | | | [place], [place] | | | | | | [address] | | | | | | [phone] | | | | | | | | +--------+ + + + + documented as of this encounter Visit Diagnoses Not on filedocumented in this encounter"
--- OUTSIDE RECORDS SUMMARY | ~2019-01-02 | XMS | Encounter Summary ---
Demographics + + + | Address | [address] | | | [place] [address] | + + + | Home Phone [...] | | | | | [place] [address] | | + + + + + | Thania Mallory | ECON | [address] | | | | | [place] [address] | | + + + + + | Deidra Weldon | ECON | [address] | | | | | [place] | | | | | [address] | | + + + + + Care Team Providers + +------+ + | Care Project Specialist Name | Role | Phone | [...] Mailcode: | | | | | | [address] | [address] | | | | | | [address] | [place] | | | | | | [place], | [place], [place] | | | | | | [place] | [address] | | | | | | [address] | Phone: | | | | | | Phone: | [phone] | | | | | | [phone] | | | | | | | Fax: | | | | | | | [phone] | | +--------+--------+ + + + + Encounter Details +--------+---------+ + + + | Date | Type | Department | Care Team | Description | +--------+---------+ + + + | 01/20/ | Office | Specialty Clinics | Sudhakar Joy | HSP | | 2014 | Visit | at [facility] [address] MD [address] | ([place] | | | | [facility] [address] | [facility] [address] | purpura) nephritis | | | | Mailcode: DC7 | [place], [place] | (Primary Dx); | | | | [address] | [address] | Allergic purpura- | | | | [place], [place] | [phone] | MEDICARE 2728; | | | | [address] | | Anemia of chronic | | | | [phone] | | kidney failure, | | | [...] [address] Mail code [facility] [place], [place] [id number] documented in this encounter Plan of Treatment +--------+ + + + + | Date | Type | Specialty | Care Team | Description | +--------+ + + + + | 05/04/ | Hospital | Adult Acute Care | El Starr MD | | | 2022 | Encounter | | [address] | | | | | | [place], [place] | | | | | | [address] | | | | | | [phone] | | | | | | | [...]
--- OUTSIDE RECORDS SUMMARY | ~2019-01-02 | XMS | Encounter Summary ---
Demographics + + + | Address | [address] | | | [place] [address] | + + + | Home Phone [...] | | | | | [place] [address] | | + + + + + | Thania Mallory | ECON | [address] | | | | | [place] [address] | | + + + + + | Deidra Weldon | ECON | [address] | | | | | [place] | | | | | [address] | | + + + + + Care Team Providers + +------+ + | Care Pathology Transcriptionist Name | Role | Phone | + [...] [address] | | | | | ([facility]) | [address] | Rd [place], | | | | | Allergic | [place], [place] | [place] | | | | | purpura | [address] | [address] | | | | | ([facility]) | Phone: | Phone: | | | | | | [phone] | [phone] | | | | | | Fax: | Fax: | | | | | | [phone] | [phone] | +--------+--------+ + + + + Encounter Details +--------+ + + + + | Date | Type | Department | Care Team | Description | +--------+ + + + + | 12/20/ | Hospital | Radiology at [facility] | | | | 2012 | Encounter | [address] | | | | | | [address] Mailcode: | | | | | | [address] | | | | | | [place], [place] | | | | | | [address] | | | | | | [phone] | | | +--------+ + + + [...] + + + +---------+--------+ + | EPOETIN JOCYE INJ | by Injection route. | | [...] Denise | | | | | | [place], [place] | | | | | | [address] | | | | | | [phone] | | | | | | | [...] | | + +---------+ + + | 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
--- OUTSIDE RECORDS SUMMARY | ~2019-01-02 | XMS | Encounter Summary ---
Demographics + + + | Address | [address] | | | [place] [address] | + + + | Home Phone [...] | | | | | [place] [address] | | + + + + + | Thania Mallory | ECON | [address] | | | | | [place] [address] | | + + + + + | Deidra Weldon | ECON | [address] | | | | | [place] | | | | | [address] | | + + + + + Care Team Providers + +------+ + | Care Health And Safety Advisor Name | Role | Phone [...] | recommendations) | | | | ANNALISA [facility] | [facility] | | | | | Rd [place], [place] | [place], [place] | | | | | [address] | [address] | | | | | [phone] | | | +--------+ + + + [...] Denise | | | | | | [place] | | | | | | [address] | | | | | | [phone] | | | | | | | | +--------+ + + + + documented as of this encounter Visit Diagnoses Not on filedocumented in this encounter"
--- OUTSIDE RECORDS SUMMARY | ~2019-01-02 | XMS | Encounter Summary ---
Demographics + + + | Address | [address] | | | [place] [address] | + + + | Home Phone [...] | | | | | [place] [address] | | + + + + + | Thania Mallory | ECON | [address] | | | | | [place] [address] | | + + + + + | Deidra Weldon | ECON | [address] | | | | | [place] | | | | | [address] | | + + + + + Care Team Providers + +------+ + | Care Legislative Correspondent Name | Role | Phone | + [...] Update | | | | [place] | [facility] | | | | | [facility] | [place], [place] | | | | | [address] | [address] | | | | | [facility] Mailcode: | | | | | | [address] | | | | | | [place], [place] | | | | | | [address] | | | | | | [phone] | | | +--------+ + + + [...] Denise | | | | | | [place] | | | | | | [address] | | | | | | [phone] | | | | | | | | +--------+ + + + + documented as of this encounter Visit Diagnoses Not on filedocumented in this encounter"
--- OUTSIDE RECORDS SUMMARY | ~2019-01-02 | XMS | Encounter Summary ---
Demographics + + + | Address | [address] | | | [place] [address] | + + + | Home Phone [...] | | | | | [place] [address] | | + + + + + | Thania Mallory | ECON | [address] | | | | | [place] [address] | | + + + + + | Deidra Weldon | ECON | [address] | | | | | [place] | | | | | [address] | | + + + + + Care Team Providers + +------+ + | Care Admissions Dean Name | Role | Phone | [...] Hoffmann | | | | | ANNALISA [facility] | [facility] | | | | | Rd [place], [place] | [place], [place] | | | | | [address] | [address] | | | | | [phone] | | | +--------+ + + + [...] Denise | | | | | | [place], [place] | | | | | | [address] | | | | | | [phone] | | | | | | | | +--------+ + + + + documented as of this encounter Visit Diagnoses Not on filedocumented in this encounter"
--- OUTSIDE RECORDS SUMMARY | ~2019-01-02 | XMS | Encounter Summary ---
Demographics + + + | Address | [address] | | | [place] [address] | + + + | Home Phone [...] | | | | | [place] [address] | | + + + + + | Thania Mallory | ECON | [address] | | | | | [place] [address] | | + + + + + | Deidra Weldon | ECON | [address] | | | | | [place] | | | | | [address] | | + + + + + Care Team Providers + +------+ + | Care Line Runner Name | Role | Phone | [...] Update | | | | ANNALISA Hoffmann [facility] | [facility] | | | | | [place], [place] | [place], [place] | | | | | [address] | [address] | | | | | [phone] | [phone] | | | | | | | [...] [place] | | | | | | [address] | | | | | | [phone] | | | | | | | | +--------+ + + + + documented as of this encounter Visit Diagnoses Not on filedocumented in this encounter"
--- OUTSIDE RECORDS SUMMARY | ~2019-01-02 | XMS | Clinical Summary ---
Demographics + + + | Address | [address] | | | [place] [address] | + + + | Home Phone [...] | Author | [facility] | | | and Josephana | + + + | Organization | [facility] | | | and [...] Providers + +------+ + | Care Associate Genetics Professor Name | Role | Phone | [...] Overview: Active Kidney Transplant Waiting List at [facility]: | | 03/07/2014 | + [...] | | Treated by Dr. Joy, pediatric sports medicine specialist. | + + + +---+ | ESRD [...] declot | | but reclotted). 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 | | 2019 | | | | ([facility]); | | | | | | Non-cardiogenic | | | | | | pulmonary edema; | | | | | | Anemia in ESRD | | | | | | (end-stage renal | | | | | | disease) ([facility]); | | [...] | | ([facility]); At high risk | | [...] | 2018 | | | | dialysis ([facility]); End | | | | | | stage renal disease | | | | | | ([facility]) | +--------+ + + + + | 10/08/ | Orders Only | | Provider, | Systolic congestive | | 2018 | | | MD Rubén | heart failure ([facility]) | +--------+ + + + + from [...] [address] | | | | | | [place] [address] | | | | | | [phone] | | | | | | | [...] Left: | SYNOVIS - | | | [id number] | | 0.8x8cm - [id number]: | | Arm | SYNO | | [...] | | | COVIDIEN | | | [id number] | | | | | -MATT 867 - | | | 3404 / | | | | | COVI | | | | | | | | | | | /[id number] | | | | | | | [...] R?MRN: | | | | | | [id number] | | | [id number] | | | riteri | | | [...] | | | St. | | | [place] | | | y | | | [...] | | | St. | | | [place] | | | y | | | [...] | | | St. | | | [place] | | | y | | | [...] | | | St | | | [place] | | | y | | | [...] St | | | | | | [place] | | | y | | | [...] | | | St. | | | [place] | | | y | | | [...] | | | St. | | | [place] | | | y H. | | [...] | | | St. | | | [place] | | | y H. | | [...] | | | St. | | | [place] | | | y H. | | [...] | | | St. | | | [place] | | | y H. | | [...] | | | St. | | | [place] | | | y H. | | [...] | | | St. | | | [place] | | | y H. | | [...] | | | St. | | | [place] | | | y H. | | [...] | | | MD | | | Cardroom Manager | | | al | | | [...] | | | [id number] | | | [id number] | | | 2b | | | [...] + | Billie Gupta MD 12/14/2018 9:54 [facility] | | | Medical Center [...] QB 450 AP | | | -200 [address] Constitutional: pt appears without | | [...] recent of 4 results within the ti vt period is included. + + +--- + [...] | | | | | | at [facility], [address] | | | | | | [facility], | | | | | | [place] [address] | | | | | |Testing performed at [facility], [address] [place] [address] | | | | | | | | | | + + +--- + + + + + | Specimen | + + | Blood | + + + + + + + | Performing | Address | City/State/Zipcode | Phone Number | | Organization | | | | + + + + + | [facility] | [address] | [place] [address] | [phone] | + + + + + Basic [...] | | | | | performed at [facility], [address] | | | | | | [facility], | | | | | | [place] [address] | | | | + + + + + + + + | Specimen | + + | Blood | + + + + + + + | Performing | Address | City/State/Zipcode | Phone Number | | Organization | | | | + + + + + | [facility] | [address] | [place] [address] | [phone] | + + + + + XR [...] Special | Testing performed at | | [facility] | | | Requests | [facility];[address] | | LABORATORY | | | | [address] [address] | | | | + + + + + + | RESULT | NO GROWTH 6 DAYS | | [facility] | | | | | | LABORATORY | | + + + + + + | RESULT | Testing performed at | | [facility] | | | | [facility], [address] | | LABORATORY | | | | [place] | | | | | | [address]Cdlisez: Testing | | | | | | performed at [facility], [address] | | | | | | [place] | | | | | | [address] | | | | + + + + + + + + | Specimen | + + | Blood | + + + + + + + | Performing | Address | City/State/Zipcode | Phone Number | | Organization | | | | + + + + + | [facility] | [address] | [place] [address] | [phone] | + + + + + CBC [...] [facility] | | | | performed at [facility], [address] | | LABORATORY | | | | [address], | | | | | | [place] [address] | | | | + + + + + + + + | Specimen | + + | Blood | + + + + + + + | Performing | Address | City/State/Zipcode | Phone Number | | Organization | | | | + + + + + | [facility] | [address] | [place] [address] | [phone] | + + + + + C-Reactive Protein (12/12/2018 5:02 PDT) + + + + + + | Component | Value | Ref Range | Performed | Pathologist | | | | | At | Signature | + + + + + + | CRP | 8.6 (H)Comment: Testing | <0.5 mg/dL | [facility] | | | | performed at [facility], [address] | | LABORATORY | | | | [address], | | | | | | [place] [address] | | | | + + + + + + + + | Specimen | + + | Blood | + + + + + + + | Performing | Address | City/State/Zipcode | Phone Number | | Organization | | | | + + + + + | [facility] | [address] | [place] [address] | [phone] | + + + + + Influenza [...] | | | | | performed at [facility];[address] | | | | | | [address];[place] | | | | | | [address] | | | | + + + + + + + + | Specimen | + + | | + + + + + + + | Performing | Address | City/State/Zipcode | Phone Number | | Organization | | | | + + + + + | [facility] | [address] | [place] [address] | [phone] | + + + + + FLU SWAB COLLECTION (12/11/2018 15:46 PDT) + + + + + + | Component | Value | Ref Range | Performed | Pathologist | | | | | At | Signature | + + + + + + | Collection | SPECIMEN RECEIVED IN | | [facility] | | | | LABComment: Testing | | LABORATORY | | | | performed at [facility];[address];[place], [place] | | | | | | [address] | | | | + + + + + + + + | Specimen | + + | Tissue | + + + + + + + | Performing | Address | City/State/Zipcode | Phone Number | | Organization | | | | + + + + + | [facility] | [address] | [place] [address] | [phone] | + + + + + POC Glucose (12/11/2018 8:31 PDT) + + + + + + | Component | Value | Ref Range | Performed | Pathologist | | | | | At | Signature | + + + + + + | Glucose, | 84Comment: Testing | 65 - 99 mg/dL | [facility] | | | POC | performed at [facility];[address] | | LABORATORY | | | | [address];[place], [place] | | | | | | [address] | | | | + + + + + + + + | Specimen | + + | | + + + + + + + | Performing | Address | City/State/Zipcode | Phone Number | | Organization | | | | + + + + + | [facility] | [address] | [place] [address] | [phone] | + + + + + ECG [...] | | | | | ONLY, -COMPUTER (430), | | | | | | 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 | | | | | [...] [facility] | | | | performed at [facility];[address] | | LABORATORY | | | | [address];[place], [place] | | | | | | [address] | | | | + + + + + + + + | Specimen | + + | Blood | + + + + + + + | Performing | Address | City/State/Zipcode | Phone Number | | Organization | | | | + + + + + | [facility] | [address] | [place] [address] | [phone] | + + + + + CT [...] LABORATORY | | | | performed at [facility] | | | | | | [address];[place], [place] | | | | | | [address] | | | | + + + + + + + + | Specimen | + + | | + + + + + + + | Performing | Address | City/State/Zipcode | Phone Number | | Organization | | | | + + + + + | [facility] | [address] | [place] [address] | [phone] | + + + + + Lactic [...] | | | Serum | performed at [facility];[address] | mmol/L | LABORATORY | | | | [address];[place], [place] | | | | | | [address] | | | | + + + + + + + + | Specimen | + + | Blood | + + + + + + + | Performing | Address | City/State/Zipcode | Phone Number | | Organization | | | | + + + + + | [facility] | [address] | [place] [address] | [phone] | + + + + + Troponin [...] at | | | | | | [facility];[address] | | | | | | [address];[place] [address] | | | | + + + + + + + + | Specimen | + + | Blood | + + + + + + + | Performing | Address | City/State/Zipcode | Phone Number | | Organization | | | | + + + + + | [facility] | [address] | [place] [address] | [phone] | + + + + + Protime [...] | | | | | performed at [facility];[address] | | | | | | [address];[place] | | | | | | [address] | | | | + + + + + + + + | Specimen | + + | Blood | + + + + + + + | Performing | Address | City/State/Zipcode | Phone Number | | Organization | | | | + + + + + | [facility] | [address] | [place] [address] | [phone] | + + + + + Phosphorus [...] [facility] | | | | performed at [facility];[address] | | LABORATORY | | | | [address];[place], [place] | | | | | | [address] | | | | + + + + + + + + | Specimen | + + | Blood | + + + + + + + | Performing | Address | City/State/Zipcode | Phone Number | | Organization | | | | + + + + + | [facility] | [address] | [place] [address] | [phone] | + + + + + Magnesium [...] Testing | 1.7 - 2.4 mg/dL | [facility] | | | | performed at [facility];[address] | | LABORATORY | | | | [address];[place], [place] | | | | | | [address] | | | | + + + + + + + + | Specimen | + + | Blood | + + + + + + + | Performing | Address | City/State/Zipcode | Phone Number | | Organization | | | | + + + + + | [facility] | [address] | [place] [address] | [phone] | + + + + + Comprehensive [...] | | | | | performed at [facility] | | | | | | [facility];[place], [place] | | | | | | [address] | | | | + + + + + + + + | Specimen | + + | Blood | + + + + + + + | Performing | Address | City/State/Zipcode | Phone Number | | Organization | | | | + + + + + | [facility] | [address] | [place] [address] | [phone] | + + + + + HEMODIALYSIS (11/09/2018 9:34 PDT) + + + | Narrative | Performed At | + + + | Billie Gupta MD 11/09/2018 9:34 [facility] | | | [facility] Hemo-Dialysis Procedure note Pt is seen [...] | | . 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 [address] | | | Constitutional: pt appears [...] | | LABORATORY | | | | Blvd;[place] [address] | | | | + + + + + + | Gram Stain | NO CELLS OR ORGANISMS | | [facility] | | | Result | SEEN | | LABORATORY | | + + + + + + | RESULT | NO GROWTH 4 DAYS | | [facility] | | | | | | LABORATORY | | + + + + + + | RESULT | Testing performed at | | [facility] | | | | [facility], [address] [facility] | | LABORATORY | | | | [place] | | | | | | [id number]: Testing | | | | | | performed at [facility], [address] | | | | | | [address] [place] | | | | | | [address] | | | | + + + + + + + + | Specimen | + + | Body Fluid | + + + + + + + | Performing | Address | City/State/Zipcode | Phone Number | | Organization | | | | + + + + + | [facility] | [address] | [place] [address] | [phone] | + + + + + Cell [...] + + + | BF RBC | <52707 | /mm3 | [facility] | | | [...] | | | Counted | performed at [facility] | | LABORATORY | | | | [address];[place], [place] | | | | | | [address] | | | | + + + + + + + + | Specimen | + + | Body Fluid | + + + + + + + | Performing | Address | City/State/Zipcode | Phone Number | | Organization | | | | + + + + + | [facility] | [address] | [place] [address] | [phone] | + + + + + Protein, Body Fluid (11/07/2018 15:15 PDT) + + + + + + | Component | Value | Ref Range | Performed | Pathologist | | | | | At | Signature | + + + + + + | Protein, BF | 3.4Comment: This is not | g/dL | [facility] | | | | a chief operating officer validated | | LABORATORY | | | | sample type for this | | | | | | method. No | | | | | | referenceranges have | | | | | | been established.Testing | | | | | | performed at [facility], [address] | | | | | [address] [facility], | | | | | | [place] [address] | | | | + + + + + + | SOURCE | PLEURAL FLUIDComment: | | [facility] | | | | Testing performed at | | LABORATORY | | | | [facility];[address] | | | | | | [address];[place] [address] | | | | + + + + + + + + | Specimen | + + | Body Fluid | + + + + + + + | Performing | Address | City/State/Zipcode | Phone Number | | Organization | | | | + + + + + | [facility] | [address] [facility] | [place] [address] | [phone] | + + + + + Lactate dehydrogenase, body fluid (11/07/2018 15:15 PDT) + + + + + + | Component | Value | Ref Range | Performed | Pathologist | | | | | At | Signature | + + + + + + | LDH, BODY | 102Comment: This is not | U/L | [facility] | | | FLUID | a chief operating officer validated | | LABORATORY | | | | sample type for this | | | | | | method. No | | | | | | referenceranges have | | | | | | been established.Testing | | | | | | performed at [facility], [address] | | | | | [address] [facility], | | | | | | [place] [address] | | | | + + + + + + + + | Specimen | + + | Body Fluid | + + + + + + + | Performing | Address | City/State/Zipcode | Phone Number | | Organization | | | | + + + + + | [facility] | [address] | [place] [address] | [phone] | + + + + + Glucose, Body Fluid (11/07/2018 15:15 PDT) + + + + + + | Component | Value | Ref Range | Performed | Pathologist | | | | | At | Signature | + + + + + + | Glucose | 96Comment: This is not a | mg/dL | [facility] | | | Fluid | chief operating officer validated | | LABORATORY | | | | sample type for this | | | | | | method. No | | | | | | referenceranges have | | | | | | been established.Testing | | | | | | performed at [facility], [address] | | | | [address], | | | | | | [place] [address] | | | | + + + + + + | SOURCE | PLEURAL FLUIDComment: | | [facility] | | | | Testing performed at | | LABORATORY | | | | [facility];[address] | | | | | | [address];[place] [address] | | | | + + + + + + + + | Specimen | + + | Body Fluid | + + + + + + + | Performing | Address | City/State/Zipcode | Phone Number | | Organization | | | | + + + + + | [facility] | [address] | [place] [address] | [phone] | + + + + + Amylase, Body Fluid (11/07/2018 15:15 PDT) + + + + + + | Component | Value | Ref Range | Performed | Pathologist | | | | | At | Signature | + + + + + + | AMYLASE | 46Comment: This is not a | U/L | [facility] | | | FLUID | chief operating officer validated | | LABORATORY | | | | sample type for this | | | | | | method. No | | | | | | referenceranges have | | | | | | been established.Testing | | | | | | performed at [facility], [address] | | | | | [address] [facility], | | | | | | [place] [address] | | | | + + + + + + + + | Specimen | + + | Body Fluid | + + + + + + + | Performing | Address | City/State/Zipcode | Phone Number | | Organization | | | | + + + + + | [facility] | [address] | [place] [address] | [phone] | + + + + + Albumin, Body Fluid (11/07/2018 15:15 PDT) + + + + + + | Component | Value | Ref Range | Performed | Pathologist | | | | | At | Signature | + + + + + + | Albumin, | 2.0Comment: This is not | g/dL | [facility] | | | Fluid | a chief operating officer validated | | LABORATORY | | | | sample type for this | | | | | | method. No | | | | | | referenceranges have | | | | | | been established.Testing | | | | | | performed at [facility], [address] | | | [address], | | | | | | [place] [address] | | | | + + + + + + + + | Specimen | + + | Body Fluid | + + + + + + + | Performing | Address | City/State/Zipcode | Phone Number | | Organization | | | | + + + + + | [facility] | [address] | [place] [address] | [phone] | + + + + + Medical Cytology (11/07/2018 15:15 PDT) + + | Specimen | + + | Body Fluid | + + + + + | Narrative | Performed At | + + + | ORDERING | [facility] | | PHYSICIAN:Darell Kowalski MD PATIENT NAME:DARA LOUISE | [employer] | | RAYEGENDER: Alysia : 1995 SPECIMEN(S): [...] | | | preparation was performed by [facility], [address] [place] [address] | | | [place] [address] (Medical Staff Services Coordinator: Matt Claudio D.O.; | | | CLIA#: [id number]).Professional interpretation was performed by | | | [facility], [address], | | | [place] [address] (Medical Staff Services Coordinator: Daniel Larson M.D.; | | | CLIA#: [id number]).6 Diagnostician: Enrrique Nichols | | | CT([facility])CytotechnologistDiagnostician: Daniel Larson | | | MDPathologistElectronically Signed 11/13/2018 | | |DESCRIPTION: | | |The preparations contain mesothelial cells, rare inflammatory cells, and acellular proteina ceous material. Atypical cytologic findings are not encountered. | | | | | |SPECIMEN ADEQUACY: | | |Satisfactory for Evaluation | | | | | |PERFORMING LABORATORY: | | |Technical preparation was performed by [facility], [address] [place] [address] (Medical Staff Services Coordinator: Matt Claudio D.O.; CLIA#: [id number]). | | |Professional interpretation was performed by [facility], [facility], [address] [place] [address] (Medical Staff Services Coordinator: Daniel Larson M.D.; CLIA# : [id number]).6 | | | | | |Diagnostician: Enrrique BROOKS([facility]) | | |[employer] Service Technician | | |Diagnostician: Daniel Larson MD | [...] Testing | 150 - 400 K/uL | [facility] | | | Count | performed at [facility], [address] | | LABORATORY | | | | [address], | | | | | | [place] [address] | | | | + + + + + + + + | Specimen | + + | Blood | + + + + + + + | Performing | Address | City/State/Zipcode | Phone Number | | Organization | | | | + + + + + | [facility] | [address] | [place] [address] | [phone] | + + + + + Lactate Dehydrogenase (11/07/2018 4:03 PDT) + + + + + + | Component | Value | Ref Range | Performed | Pathologist | | | | | At | Signature | + + + + + + | LDH TOTAL | 202Comment: Testing | 120 - 246 U/L | [facility] | | | | performed at [facility];[address] | | LABORATORY | | | | [address];[place] | | | | | | [address] | | | | + + + + + + + + | Specimen | + + | Blood | + + + + + + + | Performing | Address | City/State/Zipcode | Phone Number | | Organization | | | | + + + + + | [facility] | [address] | [place] [address] | [phone] | + + + + + ECHO [...] CHEST 1 VIEW (10/17/2018); CHEST TWO VIEWS 15047 | | | (10/17/2018); FINDINGS: Compared to [...] VIEW | | (10/17/2018); CHEST TWO VIEWS 63655 (10/17/2018); | | FINDINGS: | | Compared [...] | | | | | | at [facility], [address] | | | | | | [facility], | | | | | | [place] [address] | | | | | |Testing performed at [facility], [address] [facility], [place] [address] | | | | | | | [...] EXTERNAL | | | | performed at [facility];[address] | | LAB | | | | [address];[place], [place] | | | | | | [address] | | | | + + + [...] at | | | | | | [facility];[address] [place] [address] | | | | | | Blvd;[place] [address] | | | | + + + [...] | | LAB | | | | [facility];[address] | | | | | | [address];[place] [address] | | | | + + + [...] +--------+ +---------+--------+ | MEDICARE | MEDICA | [id number] | 05/05/19 | [phone] | | Medica | | | RE | | 13-Pre | 5 | | re | | | PART A | | sent | | | | | | AND B | | | | | | + +--------+ +--------+ +---------+--------+ | MEDICARE | MEDICA | [id number] | 05/05/19 | [phone] | | Medica | | | RE | | 13-Pre | 5 | | re | | | PART A | | sent | | | | | | AND B | | | | | | + +--------+ +--------+ +---------+--------+ | [employer] | MODA | [id number] | | [phone] | | Medica | | MEDICAID HMO | HEALTH | | 019-Pr | 1 | | id | | | MDCD | | esent | | | | | | HMO OR | | | | | | + +--------+ +--------+ +---------+--------+ | [employer] | MODA | [id number] | | [phone] | | Medica | | MEDICAID HMO [...] [place] | | | 2 (Home) | [address] | + +--------+ +--------+ + + | Dara Louise | Person | Self [birth year] | [address] | | | al/Fam | | 1994 | [phone] | [address] [place] | | | [place] | | | 2 (Home) | [address] | + +--------+ +--------+ + + | Cory Louise | Josh | Father | [birth year] | [address] | | | al/Fam | | 1970 | [phone] | [employer] [place] [address] | | | [place] | | | 9 (Home) | | + +--------+ +--------+ + + Advance Directives Patient has advance care planning documents, and code status on file. For more information, please contact:[facility] [place] [address] + + + + + | Code [...]
--- OUTSIDE RECORDS SUMMARY | ~2019-01-02 | XMS | Encounter Summary ---
Demographics + + + | Address | [address] | | | [place] [address] | + + + | Home Phone [...] | | | | | [place] [address] | | + + + + + | Thania Mallory | ECON | [address] | | | | | [place] [address] | | + + + + + | Deidra Weldon | ECON | [address] | | | | | [place] | | | | | [address] | | + + + + + Care Team Providers + +------+ + | Care Manager Public Name | Role | Phone | + [...] | [facility] | [facility] | | | | | [address] [place], [place] | [place], [place] | | | | | [address] | [address] | | | | | [phone] | | | +--------+ + + + [...] Denise | | | | | | [place], [place] | | | | | | [address] | | | | | | [phone] | | | | | | | | +--------+ + + + + documented as of this encounter Visit Diagnoses Not on filedocumented in this encounter"
--- OUTSIDE RECORDS SUMMARY | ~2019-01-02 | XMS | Encounter Summary ---
Demographics + + + | Address | [address] | | | [place] [address] | + + + | Home Phone [...] | | | | | [place] [address] | | + + + + + | Thania Mallory | ECON | [address] | | | | | [place] [address] | | + + + + + | Deidra Weldon | ECON | [address] | | | | | [place] | | | | | [address] | | + + + + + Care Team Providers + +------+ + | Care Mobile Application Tester Name | Role | Phone | [...] Requested (Drug | | | | [facility] | [facility] | screens) | | | | Rd [place], [place] | [facility] [place] | | | | | [address] | [address] | | | | | [phone] | | | +--------+ + + + [...] Denise | | | | | | [place] | | | | | | [address] | | | | | | [phone] | | | | | | | | +--------+ + + + + documented as of this encounter Visit Diagnoses Not on filedocumented in this encounter"
--- OUTSIDE RECORDS SUMMARY | ~2019-01-02 | XMS | Encounter Summary ---
Demographics + + + | Address | [address] | | | [place] [address] | + + + | Home Phone [...] | | | | | [place] [address] | | + + + + + | Thania Mallory | ECON | [address] | | | | | [place] [address] | | + + + + + | Deidra Weldon | ECON | [address] | | | | | [place] | | | | | [address] | | + + + + + Care Team Providers + +------+ + | Care Classified Ad Taker Name | Role | Phone | + [...] | | | [place], | [place] [address] | | | | | [place] [address] | [phone] | | | | | | | [...] Denise | | | | | | [place], [place] | | | | | | [address] | | | | | | [phone] | | | | | | | [...] [facility] - | [address] | [place] [address] | | | IMMUNOGENETICS/TRANS | [address] | | | | PLANT LABORATORY | | | | + + + + + documented in this encounter Visit Diagnoses Not on filedocumented in this encounter"
--- OUTSIDE RECORDS SUMMARY | ~2019-01-02 | XMS | Encounter Summary ---
Demographics + + + | Address | [address] | | | [place] [address] | + + + | Home Phone [...] | | | | | [place] [address] | | + + + + + | Thania Mallory | ECON | [address] | | | | | [place] [address] | | + + + + + | Deidra Weldon | ECON | [address] | | | | | [place] | | | | | [address] | | + + + + + Care Team Providers + +------+ + | Care Luggage Liner Name | Role | Phone | [...] on pt's | | | | Rd [place], [place] | [place], [place] | support plan & | | | | [address] | [address] | social changes) | | | | [phone] | | | +--------+ + + + [...] Denise | | | | | | [place], [place] | | | | | | [address] | | | | | | [phone] | | | | | | | | +--------+ + + + + documented as of this encounter Visit Diagnoses Not on filedocumented in this encounter"
--- OUTSIDE RECORDS SUMMARY | ~2019-01-02 | XMS | Encounter Summary ---
Demographics + + + | Address | [address] | | | [place] [address] | + + + | Home Phone [...] | | | | | [place] [address] | | + + + + + | Thania Mallory | ECON | [address] | | | | | [place] [address] | | + + + + + | Deidra Weldon | ECON | [address] | | | | | [place] | | | | | [address] | | + + + + + Care Team Providers + +------+ + | Care Annealing Torch Operator Name | Role | Phone | [...] | Update | | | | ANNALISA [facility] | [facility] | | | | | Rd [place], [place] | [place], [place] | | | | | [address] | [address] | | | | | [phone] | | | +--------+ + + + [...] Denise | | | | | | [place] | | | | | | [address] | | | | | | [phone] | | | | | | | | +--------+ + + + + documented as of this encounter Visit Diagnoses Not on filedocumented in this encounter"
--- OUTSIDE RECORDS SUMMARY | ~2019-01-02 | XMS | Encounter Summary ---
Demographics + + + | Address | [address] | | | [place] [address] | + + + | Home Phone [...] + | Author | [facility] (Historical as of | | | 10-20-18) | + + + | Organization | [facility] (Historical as of | | | 10-20-18) [...] Providers + +------+ + | Care Mineral Mixer Name | Role | Phone | [...] | | 2018 | on Only | [place] [address] | [address] | [facility] Provider | | | | [address] | [address] [place], [place] | Dialysis Rounding | | | | [place] [address] | [address] | Note) | | | | [phone] | | | +--------+ + + + [...]
--- OUTSIDE RECORDS SUMMARY | ~2019-01-02 | XMS | Encounter Summary ---
Demographics + + + | Address | [address] | | | [place] [address] | + + + | Home Phone [...] | | | | | [place] [address] | | + + + + + | Thania Mallory | ECON | [address] | | | | | [place] [address] | | + + + + + | Deidra Weldon | ECON | [address] | | | | | [place] | | | | | [address] | | + + + + + Care Team Providers + +------+ + | Care Brewery Pumper Name | Role | Phone | + [...] | VERIFICATION) | | | | [facility] | [facility] | | | | | Rd [place], [place] | [place], [place] | | | | | [address] | [address] | | | | | [phone] | | | +--------+ + + + [...] Denise | | | | | | [place] | | | | | | [address] | | | | | | [phone] | | | | | | | | +--------+ + + + + documented as of this encounter Visit Diagnoses Not on filedocumented in this encounter"
--- OUTSIDE RECORDS SUMMARY | ~2019-01-02 | XMS | Encounter Summary ---
Demographics + + + | Address | [address] | | | [place] [address] | + + + | Home Phone [...] | | | | | [place] [address] | | + + + + + | Thania Mallory | ECON | [address] | | | | | [place] [address] | | + + + + + | Deidra Louise | ECON | [address] | | | | | [place] | | | | | [address] | | + + + + + Care Team Providers + +------+ + | Care Law Writer Name | Role | Phone | [...] | purpura | [address] | [facility] [address] | | | | | (HCC) [facility] | Elias | [address] | | | | | (Amelie | [address] | [address] | | | | | nlein | [place], [place] | Mailcode: | | | | | purpura) | [address] | DC7S | | | | | nephritis | Phone: | Doerarielaecher | | | | | (HCC) | [phone] | [place], [place] | | | | | Hemodialysis | Fax: | [address] | | | | | status | [phone] | Phone: | | | | | (HCC) | | [phone] | | | | | Chronic | | Fax: | | | | | kidney | | [phone] | | | | | disease, | | | | | | | stage V | | | | | | | ([facility]) | | | | | [...] | Appointment | | | | ANNALISA [facility] | [facility] | | | | | Rd [place], [place] | [place], [place] | | | | | [address] | [address] | | | | | [phone] | | | +--------+ + + + [...] Tariq | | | | | | [place], [place] | | | | | | [address] | | | | | | [phone] | | | | | | | | +--------+ + + + + + +------+--------+ + + | Name | Type | Priori | Associated Diagnoses | Order Schedule | | | | ty | | | + +------+--------+ + + | 12 LEAD ECG | ECG | Routin | Allergic purpura- | Ordered: 01/07/2015 | | | | e | MEDICARE 4008 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 | | | | | | Hemodialysis status | | | | | | ([facility]) Chronic | | | | | | kidney disease, | | | | | | stage V ([facility]) | | + +------+--------+ + [...] BSA | | | | | | ([facility] | | | | | | [...] 2:35 PM PST Echocardiography Laboratory | | [address] | | [place] [address] | | ; | | [id number] | | | | Transthoracic Echocardiogram Report | | | | | | NAME: DARA LOUISE Study Date: 01/20/2015 1:18:29 PM | | Order #: [id number] ACC #: [id number] | | | | | | : [...] on 01/20/2015 at 2:35:17 PM | | Muck Operator: YARITZA KLINE RD | | | | | | cc: | | | | | | Modes utilized | | TTE 40695; Spectral Doppler 33081; Color flow Doppler 92068; | | | | | | | | Final | + + + + + + + | Performing | Address | City/State/Zipcode | Phone Number | | Organization | | | | + + + + + | [facility] | [address] | [place], [place] | | | CARDIOLOGY | [address] | [address] | | + + + + + [...] | + + + + + | [facility] | [address] | [place] [address] | | | SERVICES, SPECIAL | PARK [...] | TILA | [address] | [place] [address] | | | DIAGNOSTIC | [address] [...] + | [facility] - | [address] | [place] [address] | | | [place] | | | | + + + [...] + | [facility] - | [address] | [place] [address] | | | [place] | | | [...] + | [facility] - | [address] | [place] [address] | | | [place] | | | [...] + | [facility] | [address] | [place] [address] | | | [place] | | | | + + + [...] by | | | | | | [employer],[address] | | | | | | Lorne [place], [employer],[place] | | | | | | [address] | | | | | | [phone]. | | | | | | Faisal [...] [facility] | [address] | [place], [place] | | | UNIV P[facility] INT[facility] | | [address] | | + + + + + [...] + | [facility] - | [address] | [place] [address] | | | [place] | | | [...] by | | | | | | [employer],[address] | | | | | | Lorne Rajendra, [employer] | | | | | | [address] | | | | | | [phone]. | | | | | | Faisal [...] [facility] | [address] | [place], [place] | | | UN[facility] P[facility] - INT[facility] | | [address] | | + + + + + [...] [facility] | [address] | [place] [address] | | | SERVICES, CORE | PARK [...] [facility] | [address] | [place] [address] | | | SERVICES, CORE | PARK [...] | + + + + + | [facility] | [address] | [place] [address] | | | SERVICES, CORE | PARK [...] | + + + + + | [employer] | [address] | [place] [address] | | | SERVICES, CORE | LONG [...] [facility] | [address] | [place] [address] | | | HOMERO LAN | LONG [...] | | | LABORATORY | | | TURKISH | | | SERVICES, | | | [...] | + + + + + | [facility] | [address] | [place] [address] | | | SERVICES, CORE | LONG [...]
--- OUTSIDE RECORDS SUMMARY | ~2019-01-02 | XMS | Encounter Summary ---
Demographics + + + | Address | [address] | | | [place] [address] | + + + | Home Phone [...] | | | | | [place] [address] | | + + + + + | Thania Mallory | ECON | [address] | | | | | [place] [address] | | + + + + + | Deidra Weldon | ECON | [address] | | | | | [place] | | | | | [address] | | + + + + + Care Team Providers + +------+ + | Care Sash Installer Name | Role | Phone | [...] issues with | | | | Rd [place], [place] | [place], [place] | pt's dad) | | | | [address] | [address] | | | | | [phone] | | | +--------+ + + + [...] [place] | | | | | | [address] | | | | | | [phone] | | | | | | | | +--------+ + + + + documented as of this encounter Visit Diagnoses Not on filedocumented in this encounter"
--- OUTSIDE RECORDS SUMMARY | ~2019-01-02 | XMS | Encounter Summary ---
Demographics + + + | Address | [address] | | | [place] [address] | + + + | Home Phone [...] | | | | | [place] [address] | | + + + + + | Thania Mallory | ECON | [address] | | | | | [place] [address] | | + + + + + | Deidra Weldon | ECON | [address] | | | | | [place] | | | | | [address] | | + + + + + Care Team Providers + +------+ + | Care Air Hose Coupler Name | Role | Phone | [...] Visit | Services Inpatient | RD [address] [facility] | disease, stage V | | | | [address] [facility] | [facility] | (HCC) (Primary Dx) | | | | [address] | [place], [place] | | | | | Mailcode: UHS18 | [address] | | | | | [place], [place] | [phone] | | | | | [address] | | | | | | [phone] | | | +--------+---------+ + + + [...] a nutrition perspective. Argentina Mehta, MS, RD, SUPERVISOR UNLOADING, LD documented in this e ncounter Plan of Treatment +--------+ + + + + | Date | Type | Specialty | Care Team | Description | +--------+ + + + + | 05/04/ | Hospital | Adult Acute Care | El Starr MD | | | 2022 | Encounter | | [address] | | | | | | [place], [place] | | | | | | [address] | | | | | | [phone] | | | | | | | | +--------+ + + + + documented as of this encounter Procedures + +--------+ + + + | Procedure Name | Priori | Date/Time | Associated Diagnosis | Comments | | | ty | | | | + +--------+ + + + | [place] MNT INITIAL | Routin | 12/21/2012 | [...]
--- OUTSIDE RECORDS SUMMARY | ~2019-01-02 | XMS | Encounter Summary ---
Demographics + + + | Address | [address] | | | [place] [address] | + + + | Home Phone [...] | | | | | [place] [address] | | + + + + + | Thania Mallory | ECON | [address] | | | | | [place] [address] | | + + + + + | Deidra Weldon | ECON | [address] | | | | | [place] | | | | | [address] | | + + + + + Care Team Providers + +------+ + | Care Industrial Engineering Technologist Name | Role | Phone | [...] | | | | | Caro [place], | | | | | | [place] [address] | | | +--------+ + + + [...] Denise | | | | | | [place], [place] | | | | | | [address] | | | | | | [phone] | | | | | | | [...] [facility] - | [address] | [place] [address] | | | IMMUNOGENETICS/TRANS | [address] | | | | PLANT LABORATORY | | | | + + + + + documented in this encounter Visit Diagnoses Not on filedocumented in this encounter"
--- OUTSIDE RECORDS SUMMARY | ~2019-01-02 | XMS | Encounter Summary ---
Demographics + + + | Address | [address] | | | [place] [address] | + + + | Home Phone [...] | | | | | [place] [address] | | + + + + + | Thania Mallory | ECON | [address] | | | | | [place] [address] | | + + + + + | Deidra Weldon | ECON | [address] | | | | | [place] | | | | | [address] | | + + + + + Care Team Providers + +------+ + | Care Evaporator Supervisor Name | Role | Phone | [...] Shun | | | | | ANNALISA [facility] | [facility] | | | | | Rd [place], [place] | [place], [place] | | | | | [address] | [address] | | | | | [phone] | | | +--------+ + + + [...] | | | | | [place], [place] | | | | | | [address] | | | | | | [phone] | | | | | | | | +--------+ + + + + documented as of this encounter Visit Diagnoses Not on filedocumented in this encounter"
--- OUTSIDE RECORDS SUMMARY | ~2019-01-02 | XMS | Encounter Summary ---
Demographics + + + | Address | [address] | | | [place] [address] | + + + | Home Phone [...] | | | | | [place] [address] | | + + + + + | Thania Mallory | ECON | [address] | | | | | [place] [address] | | + + + + + | Deidra Weldon | ECON | [address] | | | | | [place] | | | | | [address] | | + + + + + Care Team Providers + +------+ + | Care Batch Or Continuous Still Operator Name | Role | Phone | + +------+ + | Shahid Camargo MD | PCP | | + +------+ + Reason for Visit +--------+ + | Reason | Comments | +--------+ + | Other | Requested [id number] | +--------+ + Encounter Details +--------+ + + + + | Date | Type | Department | Care Team | Description | +--------+ + + + + | 11/15/ | Telephone | Transplant | Jesus Edmond, | Other (Requested | | 2012 | | Coordinators [address] | [address] | [id number]) | | | | [address]NAL[address] [facility] | [facility] | | | | | Dustin [place], [place] | [place], [place] | | | | | [address] | [address] | | | | | [phone] | [phone] | | | | | | | [...] Denise | | | | | | [place], [place] | | | | | | [address] | | | | | | [phone] | | | | | | | | +--------+ + + + + documented as of this encounter Visit Diagnoses Not on filedocumented in this encounter"
--- OUTSIDE RECORDS SUMMARY | ~2019-01-02 | XMS | Encounter Summary ---
Demographics + + + | Address | [address] | | | [place] [address] | + + + | Home Phone [...] | Author | [facility] | | | and Josephana | + + + | Organization | [facility] | | | and Josephana [...] Providers + +------+ + | Care Electrical Laboratory Technician Name | Role | Phone [...] + + | 11/13/ | Telephone | [facility] | Silvia Rabago | DME (OXYGEN) | | 2019 | | [address] | ABRIL Hernandez | | | | | [place] | | | | | | [address] | | | | | | [phone] | | | +--------+ + + + [...] | | | | | [place] [address] | | | | | | [phone] | | | | | | | | +--------+---------+ + + + documented as of this encounter Visit Diagnoses Not on filedocumented in this encounter"
--- OUTSIDE RECORDS SUMMARY | ~2019-01-02 | XMS | Encounter Summary ---
Demographics + + + | Address | [address] | | | [place] [address] | + + + | Home Phone [...] | | | | | [place] [address] | | + + + + + | Thania Mallory | ECON | [address] | | | | | [place] [address] | | + + + + + | Deidra Weldon | ECON | [address] | | | | | [place] | | | | | [address] | | + + + + + Care Team Providers + +------+ + | Care Charge Poster Name | Role | Phone | [...] Shun | | | | | Sh[address] [facility] [address] | [facility] | | | | | [place], [place] | [place] [address] | | | | | [address] | [phone] | | | | | | | [...] Denise | | | | | | [place], [place] | | | | | | [address] | | | | | | [phone] | | | | | | | | +--------+ + + + + documented as of this encounter Visit Diagnoses Not on filedocumented in this encounter"
--- OUTSIDE RECORDS SUMMARY | ~2019-01-02 | XMS | Encounter Summary ---
Demographics + + + | Address | [address] | | | [place] [address] | + + + | Home Phone [...] | | | | | [place] [address] | | + + + + + | Thania Mallory | ECON | [address] | | | | | [place] [address] | | + + + + + | Deidra Weldon | ECON | [address] | | | | | [place] | | | | | [address] | | + + + + + Care Team Providers + +------+ + | Care Technician Support Association Name | Role | Phone | + [...] Coordinators [address] | RN [address] [facility] | | | | | ANNALISA [facility] | [facility] | | | | | Rd [place], [place] | [place], [place] | | | | | [address] | [address] | | | | | [phone] | | | +--------+ + + + [...] | | | | | | [place], [place] | | | | | | [address] | | | | | | [phone] | | | | | | | | +--------+ + + + + documented as of this encounter Visit Diagnoses Not on filedocumented in this encounter"
--- OUTSIDE RECORDS SUMMARY | ~2019-01-02 | XMS | Encounter Summary ---
Demographics + + + | Address | [address] | | | [place] [address] | + + + | Home Phone [...] | | | | | [place] [address] | | + + + + + | Thania Mallory | ECON | [address] | | | | | [place] [address] | | + + + + + | Deidra Weldon | ECON | [address] | | | | | [place] | | | | | [address] | | + + + + + Care Team Providers + +------+ + | Care Blueprint Engineer Name | Role | Phone | [...] SW | | | | ANNAL[address] [facility] | [facility] [address] | clinic visit - | | | | Rd [place], [place] | [place], [place] | psychosocial | | | | [address] | [address] | readiness update) | | | | [phone] | | | +--------+ + + + [...] Denise | | | | | | [place], [place] | | | | | | [address] | | | | | | [phone] | | | | | | | | +--------+ + + + + documented as of this encounter Visit Diagnoses Not on filedocumented in this encounter"
--- OUTSIDE RECORDS SUMMARY | ~2019-01-02 | XMS | Encounter Summary ---
Demographics + + + | Address | [address] | | | [place] [address] | + + + | Home Phone [...] | | | | | [place] [address] | | + + + + + | Thania Mallory | ECON | [address] | | | | | [place] [address] | | + + + + + | Deidra Weldon | ECON | [address] | | | | | [place] | | | | | [address] | | + + + + + Care Team Providers + +------+ + | Care Traffic Rate Clerk Name | Role | Phone | [...] | recommendations) | | | | ANNALISA [facility] | [facility] | | | | | Rd [place], [place] | [place], [place] | | | | | [address] | [address] | | | | | [phone] | | | +--------+ + + + [...] Denise | | | | | | [place] | | | | | | [address] | | | | | | [phone] | | | | | | | | +--------+ + + + + documented as of this encounter Visit Diagnoses Not on filedocumented in this encounter"
--- OUTSIDE RECORDS SUMMARY | ~2019-01-02 | XMS | Encounter Summary ---
Demographics + + + | Address | [address] | | | [place] [address] | + + + | Home Phone [...] | | | | | [place] [address] | | + + + + + | Thania Mallory | ECON | [address] | | | | | [place] [address] | | + + + + + | Deidra Weldon | ECON | [address] | | | | | [place] | | | | | [address] | | + + + + + Care Team Providers + +------+ + | Care Emergency Manager Name | Role | Phone | [...] | | | | | Caro [place], | | | | | | [place] [address] | | | +--------+ + + + [...] Denise | | | | | | [place], [place] | | | | | | [address] | | | | | | [phone] | | | | | | | [...] [facility] - | [address] | [place] [address] | | | IMMUNOGENETICS/TRANS | [address] | | | | PLANT LABORATORY | | | | + + + + + documented in this encounter Visit Diagnoses Not on filedocumented in this encounter"
--- OUTSIDE RECORDS SUMMARY | ~2019-01-02 | XMS | Encounter Summary ---
Demographics + + + | Address | [address] | | | [place] [address] | + + + | Home Phone [...] | | | | | [place] [address] | | + + + + + | Thania Mallory | ECON | [address] | | | | | [place] [address] | | + + + + + | Deidra Weldon | ECON | [address] | | | | | [place] | | | | | [address] | | + + + + + Care Team Providers + +------+ + | Care Corporate Concierge Name | Role | Phone | + [...] Transplant | | | | [address] [facility] | [address] | Evaluation | | | | Rd [place], [place] | [place], [place] | (pre-listing | | | | [address] | [address] | pediatric [place] SW | | | | [phone] | | update) | +--------+ + + [...] Denise | | | | | | [place] | | | | | | [address] | | | | | | [phone] | | | | | | | | +--------+ + + + + documented as of this encounter Visit Diagnoses Not on filedocumented in this encounter"
--- OUTSIDE RECORDS SUMMARY | ~2019-01-02 | XMS | Encounter Summary ---
Demographics + + + | Address | [address] | | | [place] [address] | + + + | Home Phone [...] | | | | | [place] [address] | | + + + + + | Thania Mallory | ECON | [address] | | | | | [place] [address] | | + + + + + | Deidra Weldon | ECON | [address] | | | | | [place] | | | | | [address] | | + + + + + Care Team Providers + +------+ + | Care Plumbing Installer Name | Role | Phone | [...] Mailcode: | | | | | | [address] | [facility] | | | | | | Keven [address] | [place] | | | | | | [place], | [place], [place] | | | | | | [place] | [address] | | | | | | [address] | Phone: | | | | | | Phone: | [phone] | | | | | | [phone] | | | | | | | Fax: | | | | | | | [phone] | | +--------+--------+ + + + + Encounter Details +--------+---------+ + + + | Date | Type | Department | Care Team | Description | +--------+---------+ + + + | 05/24/ | Office | Specialty Clinics | Sudhakar Joy | HSP | | 2017 | Visit | at [facility] [address] | 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 Her adult carpenter helper maintenance could refer her to adult transplant when [...] [facility] [address] Mail code [facility] [place], [place] [id number] documented in this encounter Plan of Treatment +--------+ + + + + | Date | Type | Specialty | Care Team | Description | +--------+ + + + + | 05/04/ | Hospital | Adult Acute Care | El Starr MD | | | 2022 | Encounter | | [address] | | | | | | [place], [place] | | | | | | [address] | | | | | | [phone] | | | | | | | [...]
--- OUTSIDE RECORDS SUMMARY | ~2019-01-02 | XMS | Encounter Summary ---
Demographics + + + | Address | [address] [facility] [address] | | | [place] [address] | + + + | Home Phone [...] | | | | | [place] [address] | | + + + + + | Thania Mallory | ECON | [address] | | | | | [place] [address] | | + + + + + | Deidra Weldon | ECON | [address] | | | | | [place] | | | | | [address] | | + + + + + Care Team Providers + +------+ + | Care Edi Consultant Name | Role | Phone | [...] | ) | | | | [facility] | [facility] | | | | | Rd [place], [place] | [place], [place] | | | | | [address] | [address] | | | | | [phone] | | | +--------+ + + + [...] [place] | | | | | | [address] | | | | | | [phone] | | | | | | | | +--------+ + + + + documented as of this encounter Visit Diagnoses Not on filedocumented in this encounter"
--- OUTSIDE RECORDS SUMMARY | ~2019-01-02 | XMS | Encounter Summary ---
Demographics + + + | Address | [address] | | | [place] [address] | + + + | Home Phone [...] Author | [facility] | | | and Josephana | + + + | Organization | [facility] | [...] Team Providers + +------+ + | Care Command Post Craftsman Name | Role | Phone | + [...] + + | 11/15/ | Telephone | [facility] | George Torres RN | Lab Results | | 2019 | | [address] | | (Cytology report) | | | | [place] | | | | | | [address] | | | | | | [phone] | | | +--------+ + + + [...] [place] | | | | | | [place] [address] | | | | | | [phone] | | | | | | | | +--------+---------+ + + + documented as of this encounter Visit Diagnoses Not on filedocumented in this encounter"
--- OUTSIDE RECORDS SUMMARY | ~2019-01-02 | XMS | Encounter Summary ---
Demographics + + + | Address | [address] | | | [place] [address] | + + + | Home Phone [...] | | | | | [place] [address] | | + + + + + | Thania Mallory | ECON | [address] | | | | | [place] [address] | | + + + + + | Deidra Wedlon | ECON | [address] | | | | | [place] | | | | | [address] | | + + + + + [...] with SSA) | | | | Rd [place], [place] | [place], [place] | | | | | [address] | [address] | | | | | [phone] | | | +--------+ + + + [...] | | | | | | [place] | | | | | | [address] | | | | | | [phone] | | | | | | | | +--------+ + + + + documented as of this encounter Visit Diagnoses Not on filedocumented in this encounter"
--- OUTSIDE RECORDS SUMMARY | ~2019-01-02 | XMS | Encounter Summary ---
Demographics + + + | Address | [address] | | | [place] [address] | + + + | Home Phone [...] | | | | | [place] [address] | | + + + + + | Thania Mallory | ECON | [address] | | | | | [place] [address] | | + + + + + | Deidra Weldon | ECON | [address] | | | | | [place] | | | | | [address] | | + + + + + Care Team Providers + +------+ + | Care Airplane Captain Name | Role | Phone | [...] | | | | | [facility] | [place], [place] | | | | | [address] | [address] | | | | | [address]o [address] Mailcode: | [phone] | | | | | [address] | | | | | | [place], [place] | | | | | | [address] | | | | | | [phone] | | | +--------+ + + + [...] [place] | | | | | | [address] | | | | | | [phone] | | | | | | | | +--------+ + + + + documented as of this encounter Visit Diagnoses Not on filedocumented in this encounter"
--- OUTSIDE RECORDS SUMMARY | ~2019-01-02 | XMS | Encounter Summary ---
Demographics + + + | Address | [address] | | | [place] [address] | + + + | Home Phone [...] | | | | | [place] [address] | | + + + + + | Thania Mallory | ECON | [address] | | | | | [place] [address] | | + + + + + | Deidra Weldon | ECON | [address] | | | | | [place] | | | | | [address] | | + + + + + Care Team Providers + +------+ + | Care Mink Slicer Name | Role | Phone | + [...] | | | | | [address] [facility] | [facility] | | | | | Rd [place], [place] | [place], [place] | | | | | [address] | [address] | | | | | [phone] | | | +--------+ + + + [...] | | | | | | [place] | | | | | | [address] | | | | | | [phone] | | | | | | | | +--------+ + + + + documented as of this encounter Visit Diagnoses Not on filedocumented in this encounter"
--- OUTSIDE RECORDS SUMMARY | ~2019-01-02 | XMS | Encounter Summary ---
Demographics + + + | Address | [address] | | | [place] [address] | + + + | Home Phone [...] | | | | | [place] [address] | | + + + + + | Thania Mallory | ECON | [address] | | | | | [place] [address] | | + + + + + | Deidra Weldon | ECON | [address] | | | | | [place] | | | | | [address] | | + + + + + [...] | | | | | [place], | | | | | | [place] [address] | | | +--------+ + + + [...] Denise | | | | | | [place], [place] | | | | | | [address] | | | | | | [phone] | | | | | | | [...] DANILO - | [address], | [place] [address] | | | IMMUNOGENETICS/TRANS | [address] | | | | [facility] | | | | + + + + + documented in this encounter Visit Diagnoses Not on filedocumented in this encounter"
--- OUTSIDE RECORDS SUMMARY | ~2019-01-02 | XMS | Encounter Summary ---
Demographics + + + | Address | [address] | | | [place] [address] | + + + | Home Phone [...] | | | | | [place] [address] | | + + + + + | Thania Mallory | ECON | [address] | | | | | [place] [address] | | + + + + + | Deidra Weldon | ECON | [address] | | | | | [place] | | | | | [address] | | + + + + + Care Team Providers + +------+ + | Care Digital Asset Coordinator Name | Role | Phone | [...] | [address] | [facility] | | | | | [place], [place] | [place] [address] | | | | | [address] | [phone] | | | | | | | [...] Denise | | | | | | [place], [place] | | | | | | [address] | | | | | | [phone] | | | | | | | | +--------+ + + + + documented as of this encounter Visit Diagnoses Not on filedocumented in this encounter"
--- OUTSIDE RECORDS SUMMARY | ~2019-01-02 | XMS | Encounter Summary ---
Demographics + + + | Address | [address] | | | [place] [address] | + + + | Home Phone [...] | | | | | [place] [address] | | + + + + + | Thania Mallory | ECON | [address] | | | | | [place] [address] | | + + + + + | Deidra Weldon | ECON | [address] | | | | | [place] | | | | | [address] | | + + + + + Care Team Providers + +------+ + | Care Field Tech Name | Role | Phone | [...] Pool Shun | | | | | [facility] | [facility] | | | | | Rd [place], [place] | [place], [place] | | | | | [address] | [address] | | | | | [phone] | | | +--------+ + + + [...] Denise | | | | | | [place] | | | | | | [address] | | | | | | [phone] | | | | | | | | +--------+ + + + + documented as of this encounter Visit Diagnoses Not on filedocumented in this encounter"
--- OUTSIDE RECORDS SUMMARY | ~2019-01-02 | XMS | Encounter Summary ---
Demographics + + + | Address | [address] | | | [place] [address] | + + + | Home Phone [...] | | | | | [place] [address] | | + + + + + | Thania Mallory | ECON | [address] | | | | | [place] [address] | | + + + + + | Deidra Weldon | ECON | [address] | | | | | [place] | | | | | [address] | | + + + + + Care Team Providers + +------+ + | Care Java Front End Web Developer Name | Role | Phone | [...] Mailcode: | | | | | | [address] | [facility] | | | | | | [address] | [place] | | | | | | [place], | [place], [place] | | | | | | [place] | [address] | | | | | | [address] | Phone: | | | | | | Phone: | [phone] | | | | | | [phone] | | | | | | | Fax: | | | | | | | [phone] | | +--------+--------+ + + + + Encounter Details +--------+---------+ + + + | Date | Type | Department | Care Team | Description | +--------+---------+ + + + | 08/17/ | Office | Specialty Clinics | Sudhakar Joy | Anemia of chronic | | 2016 | Visit | at [facility] [address] MD [address] | kidney failure, | | | | [address] | [address] | stage 5 (HCC) | | | | Mailcode: [facility] | [place], [place] | (Primary Dx); HSP | | | | [place] | [address] | (Jada-Domonique | | | | [place], [place] | [phone] | purpura) nephritis | | | | [address] | | | | | | [phone] | | | +--------+---------+ + + + [...] 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 [facility] She has collected enough money to get [...] [address] Mail code [facility] [place], [place] [address] documented in this encounter Plan of Treatment +--------+ + + + + | Date | Type | Specialty | Care Team | Description | +--------+ + + + + | 05/04/ | Hospital | Adult Acute Care | El Starr MD | | | 2022 | Encounter | | [address] | | | | | | [place], [place] | | | | | | [address] | | | | | | [phone] | | | | | | | [...]
--- OUTSIDE RECORDS SUMMARY | ~2019-01-02 | XMS | Encounter Summary ---
Demographics + + + | Address | [address] | | | [place] [address] | + + + | Home Phone [...] | | | | | [place] [address] | | + + + + + | Thania Mallory | ECON | [address] | | | | | [place] [address] | | + + + + + | Deidra Weldon | ECON | [address] | | | | | [place] | | | | | [address] | | + + + + + Care Team Providers + +------+ + | Care Litigation Legal Assistant Name | Role | Phone | + +------+ + | Shahid Camargo MD | PCP | | + +------+ + Encounter Details +--------+ + + + + | Date | Type | Department | Care Team | Description | +--------+ + + + + | 12/20/ | Hospital | Radiology at [facility] | | | | 2012 | Encounter | [address] | | | | | | [place] Mailcode: | | | | | | [address] | | | | | | [place], [place] | | | | | | [address] | | | | | | [phone] | | | +--------+ + + + [...] Denise | | | | | | [place], [place] | | | | | | [address] | | | | | | [phone] | | | | | | | [...] | e | 9:29 AM | MEDICARE 8284 | procedure are in the | | [...] | | + +---------+ + + | [facility] DEPARTMENT OF | | | | | RADIOLOGY | | | | + +---------+ + + documented in this encounter Visit Diagnoses + + | Diagnosis | + + | 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
--- OUTSIDE RECORDS SUMMARY | ~2019-01-02 | XMS | Encounter Summary ---
Demographics + + + | Address | [address] | | | [place] [address] | + + + | Home Phone [...] | | | | | [place] [address] | | + + + + + | Thania Mallory | ECON | [address] | | | | | [place] [address] | | + + + + + | Deidra Weldon | ECON | [address] | | | | | [place] | | | | | [address] | | + + + + + Care Team Providers + +------+ + | Care Spring Intern Name | Role | Phone | [...] Hoffmann | | | | | [address] [facility] | [facility] | | | | | Rd [place], [place] | [place], [place] | | | | | [address] | [address] | | | | | [phone] | | | +--------+ + + + [...] Denise | | | | | | [place] | | | | | | [address] | | | | | | [phone] | | | | | | | | +--------+ + + + + documented as of this encounter Visit Diagnoses Not on filedocumented in this encounter"
--- OUTSIDE RECORDS SUMMARY | ~2019-01-02 | XMS | Encounter Summary ---
Demographics + + + | Address | 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
--- OUTSIDE RECORDS SUMMARY | ~2019-01-02 | XMS | Encounter Summary ---
Demographics + + + | Address | [address] | | | [place] [address] | + + + | Home Phone [...] | | | | | [place] [address] | | + + + + + | Thania Mallory | ECON | [address] | | | | | [place] [address] | | + + + + + | Deidra Weldon | ECON | [address] | | | | | [place] | | | | | [address] | | + + + + + Care Team Providers + +------+ + | Care Superintendent Schools Name | Role | Phone | + [...] (Delisting) | | | | [address] [facility] | [facility] | | | | | Rd [place], [place] | [place], [place] | | | | | [address] | [address] | | | | | [phone] | | | +--------+ + + + [...] Denise | | | | | | [place] | | | | | | [address] | | | | | | [phone] | | | | | | | | +--------+ + + + + documented as of this encounter Visit Diagnoses Not on filedocumented in this encounter"
--- OUTSIDE RECORDS SUMMARY | ~2019-01-02 | XMS | Encounter Summary ---
Demographics + + + | Address | [address] | | | [place] [address] | + + + | Home Phone [...] | | | | | [place] [address] | | + + + + + | Thania Mallory | ECON | [address] | | | | | [place] [address] | | + + + + + | Deidra Weldon | ECON | [address] | | | | | [place] | | | | | [address] | | + + + + + Care Team Providers + +------+ + | Care Taper Operator Name | Role | Phone | [...] SW | | | | [address]NAL[address] [facility] | [facility] [address] | clinic visit - | | | | Rd [place], [place] | [place], [place] | psychosocial | | | | [address] | [address] | readiness update) | | | | [phone] | | | +--------+ + + + [...] Denise | | | | | | [place], [place] | | | | | | [address] | | | | | | [phone] | | | | | | | | +--------+ + + + + documented as of this encounter Visit Diagnoses Not on filedocumented in this encounter"
--- OUTSIDE RECORDS SUMMARY | ~2019-01-02 | XMS | Encounter Summary ---
Demographics + + + | Address | [address] | | | [place] [address] | + + + | Home Phone [...] | | | | | [place] [address] | | + + + + + | Thania Mallory | ECON | [address] | | | | | [place] [address] | | + + + + + | Deidra Weldon | ECON | [address] | | | | | [place] | | | | | [address] | | + + + + + Care Team Providers + +------+ + | Care Chief Order Dispatcher Name | Role | Phone | [...] | Family sheet) | | | | [address] | [address] | | | | | Caro [place] Mailcode: | [place], [place] | | | | | [address] Physician's | [address] | | | | | [address] | [phone] | | | | | [place], [place] | | | | | | [address] | | | | | | [phone] | | | +--------+ + + + [...] Denise | | | | | | [place] | | | | | | [address] | | | | | | [phone] | | | | | | | | +--------+ + + + + documented as of this encounter Visit Diagnoses Not on filedocumented in this encounter"
--- OUTSIDE RECORDS SUMMARY | ~2019-01-02 | XMS | Encounter Summary ---
Demographics + + + | Address | [address] | | | [place] [address] | + + + | Home Phone [...] | | | | | [place] [address] | | + + + + + | Thania Mallory | ECON | [address] | | | | | [place] [address] | | + + + + + | Deidra Weldon | ECON | [address] | | | | | [place] | | | | | [address] | | + + + + + Care Team Providers + +------+ + | Care Rn Ent Name | Role | Phone | + [...] | Committee | | | | ANNALISA [facility] | [facility] | recommendations) | | | | Rd [place], [place] | [place], [place] | | | | | [address] | [address] | | | | | [phone] | | | +--------+ + + + [...] 2022 | Encounter | | [address] | | | | | | [place] | | | | | | [address] | | | | | | [phone] | | | | | | | | +--------+ + + + + documented as of this encounter Visit Diagnoses Not on filedocumented in this encounter"
--- OUTSIDE RECORDS SUMMARY | ~2019-01-02 | XMS | Encounter Summary ---
Demographics + + + | Address | [address] | | | [place] [address] | + + + | Home Phone [...] | | | | | [place] [address] | | + + + + + | Thania Mallory | ECON | [address] | | | | | [place] [address] | | + + + + + | Deidra Weldon | ECON | [address] | | | | | [place] | | | | | [address] | | + + + + + Care Team Providers + +------+ + | Care Tour Bus Driver/Guide Name | Role | Phone | + [...] | | | ([facility]) | Anil Griffin | Elias Elizondo | | | | | Procedures | [address] | Rd Mailcode: | | | | | TRANSTHORACI | [place], [place] | [id number] | | | | | C | [address] | [place] | | | | | ECHOCARDIOGR | Phone: | [place], [place] | | | | | AM, PEDS | [phone] | [address] | | | | | | Fax: | Phone: | | | | | | [phone] | [phone] | | | | | | | Fax: | | | | | | | [phone] | +--------+--------+ + + + + Reason [...] | | [facility] | [facility] | | | | | Rd [place], [place] | [place], [place] | | | | | [address] | [address] | | | | | [phone] | | | +--------+ + + + [...] Denise | | | | | | [place], [place] | | | | | | [address] | | | | | | [phone] | | | | | | | | +--------+ + + + + + +------+--------+ + + | Name | Type | Priori | Associated Diagnoses | Order Schedule | | | | ty | | | + +------+--------+ + + | CELESTINO JAMA [facility]-EV[facility] | Lab | Routin | Allergic purpura- | Expected: 11/29/2012 | | | | e | MEDICARE 8048 | (Approximate), | | | | | [...] view image for the detailed interpretation from [employer] results. | CARDIOLOGY | + + + + + | Procedure Note | + + | Interface, Cardiology Results - 12/21/2012 9:38 AM PDT Please click on view image | | for the detailed interpretation from [employer] results. | + + + + + + + | Performing | Address | City/State/Zipcode | Phone Number | | Organization | | | | + + + + + | [facility] | [address] | [place], [place] | | | CARDIOLOGY | [address] | [address] | | + + + + + LIT HLA-B WILEY ZHANG (12/20/2012 10:02 AM PDT) + + | Specimen | + + | Blood - Blood | + + + + + + + | Performing | Address | City/State/Zipcode | Phone Number | | Organization | | | | + + + + + | [facility] - | [address] | [place] [address] | | | IMMUNOGENETICS/TRANS | [address] [...] [facility] - | [address] | [place] [address] | | | IMMUNOGENETICS/TRANS | [address] [...] - | [address] | [place], [place] | | | IMMUNOGENETICS/TRANS | [address] [...] - | [address] | [place], [place] | | | IMMUNOGENETICS/TRANS | [address] [...] [facility] - | [address] | [place] [address] | | | IMMUNOGENETICS/TRANS | [address] [...] [facility] - | [address] | [place] [address] | | | IMMUNOGENETICS/TRANS | [address] [...] | + +---------+ + + | [facility] DEPARTMENT OF | | | | [...] [facility] | | | , SERUM | [facility],[address] | | [address] | | | | [address], [facility] [place] | | PTH - INTFC | | | | [address] | | | | | | [phone]. | | | | | | annalee, [...] [facility] | [address] | [place], [place] | | | UNIV PTH - INTFC | | [address] | | + + + + + [...] | + + + + + | [facility] | [address] | [place] [address] | | | SERVICES, HOMERO | LONG [...] + + + + + | [facility] | [address] | [place] [address] | | | SERVICES, CORE | LONG [...] + | [facility] - | [address] | [place] [address] | | | [place] | | | [...] [facility] | [address] | [place] [address] | | | SERVICES, CORE | PARK [...] | + + + + + | [facility] | [address] | [place] [address] | | | SERVICES, CORE | LONG [...] + + + + + | [facility] | [address] | [place] [address] | | | SERVICES, CORE | LONG [...] - | | | | | | [facility] | | + + + + + + + + | Specimen | + + | Blood - Blood | + + + + + + + | Performing | Address | City/State/Zipcode | Phone Number | | Organization | | | | + + + + + | [facility] | [address] | [place] [address] | | | [place] | | | | + + + [...] at: | | | | | | http://www.cdc.gov/nchstp/tb/pubs/tbfactssheets/659099.htm | | | Test performed by: [facility] [address] | [address] [place] [address] | | + + + + + [...] + + + + + | [facility] | [address] | [place] [address] | | | SERVICES, SPECIAL | PARK [...] gene at | DIAGNOSTIC | | nucleotide [id number]. Please note that this assay only detects the | LABORATORIES | | [id number] point mutation and therefore a normal result [...] has been analyzed for the presence of [id number] | | | mutation in the prothrombin [...] | | Heterozygotes for the common prothrombin [id number] mutation constitute | | | approximately 2% of the normal white population (1,2). | | | References: 1.) Edwinat et al. Blood 88, 5672-6748 (1996). 2.) Ricardo | | | et al. Circulation 99, 999-1004 (1998). 3.) Al Montalvo, and | | | Chase. Amer J Clin Path 155, 439-47 (2001). This test was | | | developed and its performance characteristics determined by the [facility] | | | [facility]. It has | | | not been cleared or approved by the Food and Drug Administration. | | | FDA approval is not required for clinical use of this test, and | | | therefore validation was done as required under the requirements of | | | the Clinical Laboratory Improvement Act of 1988. The [facility] | [facility] is a fully | | | licensed and/or accredited clinical laboratory under CLIA, CAP, and | | | the [facility]. Please note that our lab now [...] + + | Performing | Address | City/State/[facility] Centercode | Phone Number | | Organization | | | | + + + + + | [facility] | [address] | [place] [address] | | | DIAGNOSTIC | [address] [...] + + + + + | [facility] | [address] | [place] [address] | | | SERVICES, CORE | LONG [...] | + + + + + | [facility] | [address] | [place] [address] | | | RIKY, CORE | LONG [...] [facility] | [address] | [place] [address] | | | SERVICES, HOMERO | LONG [...] [facility] | [address] | [place] [address] | | | HOMERO LAN | LONG [...] | | | | | | [place] [address] | | | | | | [phone]. | | | | | | Faisal [...] [facility] | [address] | [place], [place] | | | UNIV PTH - INTFC | | [address] | | + + + + + [...] | + + + + + | [facility] | [address] | [place] [address] | | | SERVICES, SPECIAL | PARK [...] + + + + | [facility] | [address] | [place] [address] | | | DIAGNOSTIC | [address] [...] HEPATITIS B | Negative | Negative | PEETRSON - | | | SURFACE | | [...] + | [facility] - | [address] | [place] [address] | | | [place] | | | [...] + | [facility] - | [address] | [place] [address] | | | [place] | | | [...] + | [facility] - | [address] | [place] [address] | | | [place] | | | | + + + [...] + | [facility] - | [address] | [place] [address] | | | [place] | | | [...] less......Not | | | | | | Najwetgk02.0-21.9 | | | | | | U/mL.........Indetermina [...] available | | | | | | [email or web address]/eb | | | | | | vdx.Performed by [facility] | | | | | | [facility],[address] | | | | | | Raj[place], [facility] [place] [address] | | | | | | [phone]. | | | | | | Faisal [...] [facility] | [address] | [place], [place] | | | UNIV PTH - INTFC | | [address] | | + + + + + [...] + | [facility] - | [address] | [place] [address] | | | [place] | | | | + + + [...] + + + + | [facility] | [address] | [place] [address] | | | SERVICES, CORE | LONG [...] by | | | | | | [employer],[address] | | | | | | [address] [place], [facility] [place] | | | | | | [address] | | | | | | [phone]. | | | | | | [facility], Faisal Caraballo, | | | [...] [facility] | [address] | [place], [place] | | | UNIV PTH - INTFC | | [address] | | + + + + + [...] + + | [facility] | [address] | [place] [address] | | | SERVICES, CORE | PARK [...] [facility] | [address] | [place] [address] | | | SERVICES, CORE | PARK [...] [facility] | [address] | [place] [address] | | | HOMERO LAN | PARK [...]
--- OUTSIDE RECORDS SUMMARY | ~2019-01-02 | XMS | Clinical Summary ---
Demographics + + + | Address | [address] | | | [place] [address] | + + + | Home Phone [...] | | | | | [place] [address] | | + + + + + | Thania Mallory | ECON | [address] | | | | | [place] [address] | | + + + + + | Deidra Weldon | ECON | [address] | | | | | [place], [place] | | | | | [address] | | + + + + + Care Team Providers + +------+ + | Care Health Support Specialist Name | Role | Phone | + +------+ + | Jonathan Alonso MD | PCP | | + +------+ + Source Comments [facility] is fully live on both EpicCare Ambulatory and EpicCare InPatient.[facility] Allerg[facility] [...] Denise | | | | | | [place], [place] | | | | | | [address] | | | | | | [phone] | | | | | | | [...] | | | | | | | [address] | | + +--------+ +--------+ + +--------+ | MANAGER URGENT CARE MEDICAID | MANAGER URGENT CARE | xxxxxxxx | Effect | | | [...] | RENAL | | for | | ben wheeler, | | | | RECIPI | | all | | [place] [address] | | | | ENT | | [...] | | al/Fam | | 1995 | [phone] | [address] [place] | | | kamron | | | 2 (Home) | [address] | | | | | | [phone] | | | | | | | 0 (Work) | | + +--------+ +--------+ + + | CORY ALVES | Wanderbhavin | Mother | [birth year] | [address] | | | l | | [phone] | [phone] | [address] [place] | | | Gamal | | | 2 (Home) | [address] | | | g | | | | | + +--------+ +--------+ + +
--- OUTSIDE RECORDS SUMMARY | ~2019-01-02 | XMS | Encounter Summary ---
Demographics + + + | Address | [address] | | | [place] [address] | + + + | Home Phone [...] | | | | | [place] [address] | | + + + + + | Thania Mallory | ECON | [address] | | | | | [place] [address] | | + + + + + | Deidra Weldon | ECON | [address] | | | | | [place] | | | | | [address] | | + + + + + Care Team Providers + +------+ + | Care Bottle Label Inspector Name | Role | Phone | [...] | Update | | | | [facility] | [facility] | | | | | Rd [place], [place] | [place], [place] | | | | | [address] | [address] | | | | | [phone] | | | +--------+ + + + [...] [place] | | | | | | [address] | | | | | | [phone] | | | | | | | | +--------+ + + + + documented as of this encounter Visit Diagnoses Not on filedocumented in this encounter"
--- OUTSIDE RECORDS SUMMARY | ~2019-01-02 | XMS | Encounter Summary ---
Demographics + + + | Address | [address] | | | [place] [address] | + + + | Home Phone [...] | | | | | [place] [address] | | + + + + + | Thania Mallory | ECON | [address] | | | | | [place] [address] | | + + + + + | Deidra Weldon | ECON | [address] | | | | | [place] | | | | | [address] | | + + + + + Care Team Providers + +------+ + | Care Religious Healer Name | Role | Phone | + [...] 2005 | Registratio | [address] | [phone] | | | | n | Rd Mailcode: RPB[address] | | | | | | [place], [place] | | | | | | [address] | | | | | | [phone] | | | +--------+ + + + [...] | | | | | | [place], [place] | | | | | | [address] | | | | | | [phone] | | | | | | | [...] | [facility] | | | PATHOLOGY | [facility] | | DEPARTMENT | | [...] Garcia | | | | | | [facility], | | | | | | [place],labeled [place] | | | | | | kidney [...] number | | | | | | [facility]06-5905.[facility]/lab | | | | | | [...] wall | | | | | | [id number]: | | | | | | NegativeFibrinogen: [...] + + + | [facility] | [address] | [place] [address] | | | PATHOLOGY | [address] | | | + + + + + | [facility] | [address] | [place] [address] | | | PATHOLOGY | [address] | | | + + + + + documented in this encounter Visit Diagnoses Not on filedocumented in this encounter"
--- OUTSIDE RECORDS SUMMARY | ~2019-01-02 | XMS | Encounter Summary ---
Demographics + + + | Address | [address] | | | [place] [address] | + + + | Home Phone [...] | Author | [facility] | | | and Josephana | + + + | Organization | [facility] [...] Providers + +------+ + | Care Printing Press Operator Apprentice Name | Role | Phone | [...] + + | 12/17/ | Telephone | [facility] | [place], Appointment | | 2019 | | [facility] | Irish Obrien CMA | (Appointment with | | | | MANAGEMENT [address] | | PCP needed) | | | | [address] | | | | | | [place], [place] | | | | | | [address] | | | | | | [phone] | | | +--------+ + + + [...] E | | | | | | [place] [address] | | | | | | [phone] | | | | | | | | +--------+---------+ + + + documented as of this encounter Visit Diagnoses Not on filedocumented in this encounter"
--- OUTSIDE RECORDS SUMMARY | ~2019-01-02 | XMS | Encounter Summary ---
Demographics + + + | Address | [address] | | | [place] [address] | + + + | Home Phone [...] | | | | | [place] [address] | | + + + + + | Thania Mallory | ECON | [address] | | | | | [place] [address] | | + + + + + | Deidra Weldon | ECON | [address] | | | | | [place] | | | | | [address] | | + + + + + Care Team Providers + +------+ + | Care Golf Teacher Name | Role | Phone | [...] with SSA) | | | | Rd [place], [place] | [place], [place] | | | | | [address] | [address] | | | | | [phone] | | | +--------+ + + + [...] Denise | | | | | | [place] | | | | | | [address] | | | | | | [phone] | | | | | | | | +--------+ + + + + documented as of this encounter Visit Diagnoses Not on filedocumented in this encounter"
--- OUTSIDE RECORDS SUMMARY | ~2019-01-02 | XMS | Encounter Summary ---
Demographics + + + | Address | [address] | | | [place] [address] | + + + | Home Phone [...] | Author | [facility] (Historical as of | | | 10-20-18) | + + + | Organization | [facility] (Historical as of | | | 10-20-18) [...] Team Providers + +------+ + | Care Telecom Manager Name | Role | Phone | [...] | | Internal | Diagnoses | | [facility] 4th | | | | Medicine | SOB | | [address] | | | | | (shortness | | [address] | | | | | of breath) | | [address] | | | | | Pleural | | [place], [place] | | | | | effusion on | | [address] Phone: | | | | | right ESRD | | [phone] | | | | | needing | | Fax: | | | | | dialysis | | [phone] | | | | | (HCC) | | | +--------+--------+ + + + + Encounter Details +--------+ + + + + | Date | Type | Department | Care Team | Description | +--------+ + + + + | 10/17/ | Hospital | [facility] | Vivek Teran, | SOB (shortness of | | 2019 - | Encounter | [facility] | MD [address] | breath) (Primary | | | | [address] | [place] [address] | Dx); Pleural | | 10/20/ | | [address] | [phone] | effusion on right; | | 2019 | | [place] [address] | | ESRD needing | | | | [phone] | Nikita, | dialysis ([facility]); End | | | | | MD Na[address] | stage renal disease | | | | | [address] | (HCC) | | | | | [place] [address] | | | | | | [phone] | | | | | | | | | | | | Gerber Pearson MD | | | | | | [address] | | | | | | [place] [address] | | | | | | [phone] | | | | | | | [...] note may be different from the original. [facility] Service: NEPHROLOGY Progress Note Dara Weldon 23 y.o. [id number] female TIEN NICHOLSON 23-year-old female with [...] AV FISTULA; Surgeon: Rik Simon MD; Location: [facility] OR; Service: Vascula r; Laterality: Left; [...] History Narrative She lives in [facility]. She does not work. She has 1 [...] space is punctured with an 5 [employer] centesis catheter. Fluid is aspirated without complication. [...] 1 VIEW (10/17/2018); CHEST TWO V IEWS 00812 (10/17/2018); FINDINGS: Compared to the prior examination [...] MR, severe TR.severe pulmonary hypertens ion Chest p-uqj-iywtkjciacgs with pulmonary edema and large right pleural [...] earlier and charting completed later Dictation software, Bandtastic, used which may contain error for similar sounding words even af ter review. Personal communication requested for any clarification. Gerber Pearson MD - 10/19/2018 7:48 AM PDTFormatting of this note may be different from the original. [facility] Service: Hospitalist Progress Note Hospital [...] with dyspnea Patient was recently discharged from [facility] on 08/[facility]. For full note, please see discha rge summary from hospitalist. In summary, the patient was admitted for noncardiogenic pulmo nary edema after thoracentesis. At that point, prior to admission, she was seen at the [facility] department at [facility] in [place] on 08/21 where she underwent right th [...] BUN 90 on admission -History of a [place] Schnlein purpura -Last hemodialysis approximately 2 weeks [...] may be diffe rent from the original. [facility] Service: Hospitalist Progress Note Hospital [...] with dyspnea Patient was recently discharged from [facility] on 08/23/2018. For full note, please see discha rge summary from hospitalist. In summary, the patient was admitted for noncardiogenic pulmo nary edema after thoracentesis. At that point, prior to admission, she was seen at the [facility] gency department at [facility] in [place] on 08/21 where she underwent right th [...] BUN 90 on admission -History of a [place] Schnlein purpura -Last hemodialysis approximately 2 weeks [...] note may be different from the original. [facility] Service: NEPHROLOGY Progress Note Dara Weldon 23 y.o. [id number] female [facility] Day: LOS: 1 day 23-year-old female [...] AV FISTULA; Surgeon: Rik Simon MD; Location: [facility] OR; Service: Vascula r; Laterality: Left; [...] History Narrative She lives in [facility]. She does not work. She has 1 [...] QTC Calculation (Bezet) 469 ms Calculated P [place] 46 degrees Calculated R [place] 127 degrees Calculated T [place] 94 degrees Diagnosis Normal sinus rhythm Right [...] MR, severe TR.severe pulmonary hypertens ion Chest z-opw-fkuamthaydej with pulmonary edema and large right pleural [...] earlier and charting completed later Dictation software, Bandtastic, used which may contain error for similar sounding words even af ter review. Personal communication requested for any clarification. Gerber Pearson MD - 10/17/2018 7:17 AM PDTFormatting of this note may be different from the original. [facility] Service: Hospitalist Progress Note Hospital [...] with dyspnea Patient was recently discharged from [facility] on 08/23/2018. For full note, please see discha rge summary from hospitalist. In summary, the patient was admitted for noncardiogenic pulmo nary edema after thoracentesis. At that point, prior to admission, she was seen at the [facility] gency department at [facility] in [place] on 08/21 where she underwent right th [...] the case over the phone with patient's cloak room attendant Dr. Mahmood, recommends medi oly management and [...] creatinine 14, BUN 90 -History of a [place] Schnlein purpura -Last hemodialysis approximately 2 weeks [...] | | | | performed at [facility], [address] | | | | | [facility], | | | | | [place] [address] | | | + + + + + + + | Specimen | + + | Blood | + + + + + + + | Performing | Address | City/State/Zipcode | Phone Number | | Organization | | | | + + + + + | [facility] | [address] | [place] [address] | [phone] | | LABORATORY | Blvd[address] | | [...] CHEST 1 VIEW (10/17/2018); CHEST TWO VIEWS 11935 | | | (10/17/2018); FINDINGS: Compared to [...] VIEW | | (10/17/2018); CHEST TWO VIEWS 10374 (10/17/2018); | | FINDINGS: | | Compared [...] [facility] | [address] | [place] [address] | | + + + + + [...] space is punctured with an 5 [employer] Helenian uiu | | | catheter. Fluid is aspirated [...] space is punctured with an 5 [employer] Helenian Yueh | | centesis catheter. Fluid is [...] SURI JUDE | [address] | [place] [address] | | + + + + + [...] + + + + | Calculated P Hartford | 46 | degrees | [facility] | + + + + + | Calculated R [place] | 127 | degrees | [facility] | + + + + + | Calculated T [place] | 94 | degrees | [facility] | + + + + + | Diagnosis | Normal sinus rhythmRight | | [facility] | | | axis | [...] + + + | [facility] | [address] | [place] [address] | | + + + + + [...] the | | | | | [facility]D [facility] traceable | | | | | equation.Testing | | | | | performed at [facility], [address] | | | | | [facility], | | | | | [place] [address] | | | + + + + + + + | Specimen | + + | Blood | + + + + + + + | Performing | Address | City/State/Zipcode | Phone Number | | Organization | | | | + + + + + | [facility] | [address] [place] [address] | [place] [address] | [phone] | | LABORATORY | Blvd[address] | | | + + + + + Magnesium (10/18/2018 5:44 AM) + + + + + | Component | Value | Ref Range | Performed At | + + + + + | MAGNESIUM | 2.4Comment: Testing | 1.7 - 2.4 mg/dL | [facility] | | | performed at [facility], [address] | | LABORATORY | | | [address], | | | | | [place] [address] | | | + + + + + + + | Specimen | + + | Blood | + + + + + + + | Performing | Address | City/State/Zipcode | Phone Number | | Organization | | | | + + + + + | [facility] | [address] | [place] [address] | [phone] | | LABORATORY | [address] | | [...] | DIFF TYPE | AUTOMATED | | [facility] | | | | | LABORATORY | [...] [address] | | | | | [facility], | | | | | [place] [address] | | | | |Testing performed at [facility], [address] [facility], [place] [address] | | | | | | | | + + + + + + + | Specimen | + + | Blood | + + + + + + + | Performing | Address | City/State/Zipcode | Phone Number | | Organization | | | | + + + + + | [facility] | [address] | [place] [address] | [phone] | | LABORATORY | [address] | | | + + + + + Troponin I (10/17/2018 6:05 PM) + + + + + | Component | Value | Ref Range | Performed At | + + + + + | TROPONIN I | 0.175 (H)Comment: 0.04 | 0.00 - 0.04 ng/mL | [facility] | | | ng/mL or [...] performed at | | | | | [facility];[address] [place] [address] | | | | | [facility];[place] [address] | | | + + + + + + + | Specimen | + + | Blood | + + + + + + + | Performing | Address | City/State/Zipcode | Phone Number | | Organization | | | | + + + + + | [facility] | [address] | [place] [address] | | + + + + + CPK (10/17/2018 6:05 PM) + + + + + | Component | Value | Ref Range | Performed At | + + + + + | CPK | 443 (H)Comment: Testing | 30 - 240 U/L | [facility] | | | performed at [facility];[address] | | | | | [address];[place] | | | | | [address] | | | + + + + + + + | Specimen | + + | Blood | + + + + + + + | Performing | Address | City/State/Zipcode | Phone Number | | Organization | | | | + + + + + | [facility] | [address] | [place] [address] | | + + + + + Troponin I (10/17/2018 11:59 AM) + + + + + | Component | Value | Ref Range | Performed At | + + + + + | TROPONIN I | 0.119 (H)Comment: 0.04 | 0.00 - 0.04 ng/mL | [facility] | | | ng/mL or [...] performed at | | | | | [facility];[address] | | | | | Blvd;[place] [address] | | | + + + + + + + | Specimen | + + | Blood | + + + + + + + | Performing | Address | City/State/Zipcode | Phone Number | | Organization | | | | + + + + + | [facility] | [address] | [place] [address] | | + + + + + CPK (10/17/2018 11:59 AM) + + + + + | Component | Value | Ref Range | Performed At | + + + + + | CPK | 623 (H)Comment: Testing | 30 - 240 U/L | [facility] | | | performed at [facility];[address] | | | | | [address];[place] | | | | | [address] | | | + + + + + + + | Specimen | + + | Blood | + + + + + + + | Performing | Address | City/State/Zipcode | Phone Number | | Organization | | | | + + + + + | [facility] | [address] | [place] [address] | | + + + + + Protime-INR (10/17/2018 8:10 AM) + + + + + | Component | Value | Ref Range | Performed At | + + + + + | INR | 1.2Comment: REFERENCE | | [facility] | | | RANGE:0.9 - [...] | | | | performed at [facility];[address] | | | | | [address];[place] | | | | | [address] | | | + + + + + + + | Specimen | + + | Blood | + + + + + + + | Performing | Address | City/State/Zipcode | Phone Number | | Organization | | | | + + + + + | [facility] | [address] | [place] [address] | | + + + + + [...] + + + + + | [facility] | [address] | [place] [address] | | + + + + + [...] + + + + | Calculated P Hartford | 33 | degrees | [facility] | + + + + + | Calculated R [place] | -22 | degrees | [facility] | + + + + + | Calculated T [place] | 92 | degrees | [facility] [...] | | | | | ONLY, -COMPUTER (472), | | | | | food editor Daniela Esquivel | | | | | (18) on 10/17/2018 | | | | | 9:07:21 AM | | | + + + + + + + + + + | Performing | Address | City/State/Zipcode | Phone Number | | Organization | | | | + + + + + | [facility] | [address] | [place] [address] | | + + + + + Brain natriuretic peptide (10/17/2018 3:49 AM) + + + + + | Component | Value | Ref Range | Performed At | + + + + + | BRAIN NATRIURETIC | 1151.26 (H)Comment: | 0 - 100 pg/mL | [facility] | | PEPTIDE | Testing performed at | | | | | [facility];[address] | | | | | [address];[place] [address] | | | + + + + + + + + + + | Performing | Address | City/State/Zipcode | Phone Number | | Organization | | | | + + + + + | [facility] | [address] | [place] [address] | | + + + + + Troponin I, Lab (10/17/2018 3:49 AM) + + + + + | Component | Value | Ref Range | Performed At | + + + + + | TROPONIN I | 0.151 (H)Comment: 0.04 | 0.00 - 0.04 ng/mL | [facility] | | | ng/mL or [...] performed at | | | | | [facility];[address] | | [address];[place] [address] | | | + + + + + + + | Specimen | + + | Blood | + + + + + + + | Performing | Address | City/State/Zipcode | Phone Number | | Organization | | | | + + + + + | [facility] | [address] | [place] [address] | | + + + + + Cardiac Panel (10/17/2018 3:49 AM) + + + + + | Component | Value | Ref Range | Performed At | + + + + + | WBC | 6.63 | 3.80 - 11.00 K/uL | [facility] | + + + + + | RBC | 3.07 (L) | 3.70 - 5.10 M/uL | [facility] | + + + + + | HGB | 10.9 (L) | 11.3 - 15.5 g/dL | [facility] | + + + + + | HCT | 32.7 (L) | 34.0 - 46.0 % | [facility] | + + + + + [...] 4.68 | 1.90 - 7.40 K/uL | [facility] | + + + + + | LYMPHOCYTES ABS | 1.00 | 1.00 - 3.90 K/uL | [facility] | + + + + + | MONOCYTES ABS | 0.26 | 0.00 - 0.80 K/uL | [facility] | + + + + + | EOSINOPHILS ABS | 0.60 (H) | 0.00 - 0.50 K/uL | [facility] | + + + + + | BASOPHILS ABS | 0.08 | 0.00 - 0.10 K/uL | [facility] | + + + + + | MORPHOLOGY | 2+ | | [facility] | | | Comment: | | | | | MACRO | | | | | NORMAL PLT MORPH | | | | | 1+ | | | | | ANISO | | | | | | | | + + + + + | Platelet Estimate | ADEQUATE | | [facility] | + + + + + | SODIUM | 142 | 135 - 145 mmol/L | [facility] | + + + + + | POTASSIUM | 5.5 (H)Comment: SLT | 3.5 - 4.9 mmol/L | [facility] | | | HEMOLYSIS | | | + + + + + | CHLORIDE | 104 | 99 - 109 mmol/L | [facility] | + + + + + | CO2 | 17 (L) | 23 - 32 mmol/L | [facility] | + + + + + [...] 0.6 | 0.1 - 1.5 mg/dL | [facility] | + + + + + | ALK PHOS | 85 | 35 - 115 U/L | [facility] | + + + + + | AST | 40 | 10 - 45 U/L | [facility] | + + + + + | ALT | 31 | 10 - 65 U/L | [facility] | + + + + + | EGFR | 3 (L)Comment: GFR <60: | >60 mL/min/1.73m2 | [facility] | | | CHRONIC KIDNEY [...] SLT | 30 - 240 U/L | [facility] | | | HEMOLYSIS | | | + + + + + | INR | 1.2Comment: REFERENCE | | [facility] | | | RANGE:0.9 - [...] 23 | 23 - 32 seconds | [facility] | + + + + + | MMB | 17.8 (H) | 0.5 - 3.6 ng/mL | [facility] | + + + + + | CK-MB Index | UNABLE TO | | [facility] | | | CALCULATEComment: | | | | | Testing performed at | | | | | [facility];[address] [place] [address] | | | | | Blvd;[place] [address] | | | + + + + + + + + + + | Performing | Address | City/State/Zipcode | Phone Number | | Organization | | | | + + + + + | [facility] | [address] | [place] [address] | | + + + + + ED INFORMATION EXCHANGE (10/17/2018 1:10 AM) + + + | Narrative | Performed At | + + + | [id number] Criteria Met Care | ED | | [...] | | Medical/Surgical 05/28/18 12:00 AM [facility] | | | PATIENT HAS AN APT WITH PCP DR NICHOLSON ON 09/11/18. | | | PATIENT MARKETING COPYWRITER- DR [phone] Patient is | | | currently established with [facility]. If patient is seen in | | | the ED during business hours. Please contact CHWs at [facility] | | | [facility]. Care Recommendation: This patient has had [...] | | mo.) Facility Visits Low Acuity [facility] 4 0 | | | [facility] 12 0 Total 16 0 Note: Visits [...] | [facility] [place] [facility] [place] [place] [place] | | | Emergency Chief Complaint: EXCESS FLUID Aug 20, [address] [facility] [address] | | | [place] Emergency Dependence on renal dialysis | | | Chronic kidney disease, unspecified Allergy status to | | | other drugs, medicaments and biological substances status | | | Chronic pulmonary edema Other meterman (current) drug therapy | | | Allergy status to narcotic agent status Dyspnea, | | | unspecified Radiographic dye allergy status Aug 13, 2018 | | | [facility] [place] [place] [facility] Allergy status to | | | other drugs, medicaments and biological substances status | | | Pleural effusion, not elsewhere classified End stage renal | | | disease Allergy status to narcotic agent status | | | Hyperkalemia Other specified abnormalities of plasma proteins | | | Other meterman (current) drug therapy Radiographic dye | | | allergy status Dependence on renal dialysis Chest pain, | | | unspecified [facility] [place] [facility] [place] [facility] | [facility] Cough Pneumonia Hypoxemia | | | Pleural effusion, not elsewhere classified Fever, unspecified | | | Personal history of other diseases of urinary system July | | | 2018 [facility] [place] Emergency Personal | | | history of nicotine dependence Other specified respiratory | | | disorders Cough Radiographic dye allergy status | | | Allergy status to narcotic agent status Chronic kidney disease, | | | unspecified Allergy status to other drugs, medicaments and | | | biological substances status Jun 19, [address] [facility] [address] [place] | | | [place] Emergency Other chest pain End stage renal | | | disease Dependence on renal dialysis Personal history of | | | nicotine dependence Fluid overload, unspecified Heart | | | failure, unspecified USP (current) use of opiate | | | analgesic Allergy status to other drugs, medicaments and | | | biological substances status Radiographic dye allergy status | | | Other meterman (current) drug therapy Jun 12, 2018 [facility] | | | [place] Emergency Shortness of breath | | | Fluid overload, unspecified Hyperkalemia Radiographic | | | dye allergy status Allergy status to narcotic agent status | | | Other senior living (current) drug therapy Allergy status to | | | other drugs, medicaments and biological substances status | | | Unspecified asthma, uncomplicated Dependence on renal dialysis | | | Chronic kidney disease, unspecified Jun 11, [address] [facility] [address] | | | [place] Emergency Chronic pulmonary edema | | | Shortness of breath Radiographic dye allergy status | | | Personal history of nicotine dependence Other meterman | | | (current) drug therapy USP (current) use of opiate | | | analgesic Recent Inpatient Visit Summary Date Facility | | | City State Type Diagnoses or Chief Complaint Aug 20, 2018 [facility] | | | [facility] Pleural Effusion | | | Chronic pulmonary edema July 18, 2018 [facility] | | | [facility] Hypoxemia Personal history | | | of other diseases of urinary system Fever, unspecified | | | Pleural effusion, not elsewhere classified End stage renal | | | disease Dependence on renal dialysis Anemia in chronic | | | kidney disease Pulmonary hypertension, unspecified | | | Chronic right heart failure May 26, 2018 [facility] | | | [facility] Acute respiratory distress | | [...] 28, | | | 2019 - Current [employer] Portal This patient has registered | | | at the [facility] Emergency Department For more | | | information visit: | | | [email or web address] | | | [email or web address] PLEASE NOTE: 1. [...] | | completeness of information provided. 2019 [employer] | | | [employer]. - [email or web address] | | + + + + + | Procedure Note | + + | Interface, Lab - 10/17/2018 1:12 AM PDT Formatting of this note may be different | | from the original.[id number] [id number] [facility] Care Guidelines 10 in | | 12 2 in 2Security and SafetyNo recent Security Events currently on fileED Care | | GuidelinesThere are currently no ED Care Guidelines for this patient. Please check your | | facility's medical records system.Care HistoryMedical/Surgical05/28/18 12:00 AM [facility] . | | [facility] PATIENT HAS AN APT WITH PCP DR NICHOLSON ON 09/11/18. PATIENT | | MARKETING COPYWRITER- DR [phone] Patient is currently established with | [facility]. If patient is seen in the ED during business hours. Please contact CHWs | | at [facility].Care Recommendation:This patient has had 5 [...] Visit Count (12 mo.)Facility Visits Low Acuity [facility] | | Center 4 0 [facility] 12 0 Total 16 0 Note: Visits [...] Chief | | [facility] Emergency Oct 16, 2018 [facility] | | [place] Emergency Chief Complaint: EXCESS FLUID Aug 20, 2018 [facility]. | | [place] Emergency Dependence on renal dialysis Chronic kidney | | disease, unspecified Allergy status to other drugs, medicaments and biological | | substances status Chronic pulmonary edema Other senior living (current) drug therapy | | Allergy status to narcotic agent status Dyspnea, unspecified Radiographic dye | | allergy status Aug 13, 2018 [facility] [place] Emergency Allergy status to [...] dialysis Chest pain, unspecified Aug 13, 2018 [facility] | | Emergency July 18, 2018 [facility] Emergency Cough Pneumonia | | Hypoxemia Pleural effusion, not elsewhere classified Fever, unspecified | | Personal history of other diseases of urinary system July 18, [address] [facility] [address] [place] | | [place] [...] overload, unspecified | | Heart failure, unspecified emt intermediate (current) use of opiate analgesic Allergy | | status to other drugs, medicaments and biological substances status Radiographic dye | | allergy status Other meterman (current) drug therapy Jun 12, 2018 [facility] [place] | | [place] Emergency Shortness of breath Fluid overload, unspecified | | Hyperkalemia Radiographic dye allergy status Allergy status to narcotic agent | | status Other meterman (current) drug therapy Allergy status to other [...] long | | term (current) 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 USP (current) use of opiate analgesic Recent | | Inpatient Visit SummaryDate Facility City State Type Diagnoses or Chief Complaint Aug | | 2018 [facility] Ple[facility] Effusion Chronic | | pulmonary [facility] Medicine | | Hypoxemia Personal history of other diseases of urinary system Fever, unspecified | | Pleural effusion, not elsewhere classified End stage renal disease Dependence | | on renal dialysis Anemia in chronic kidney disease Pulmonary hypertension, | | unspecified Chronic right heart failure [facility] Acute respiratory distress Chest pain, unspecified Pleural | | effusion, not elsewhere classified Other ascites Dependence on renal dialysis | | Hyperkalemia Other disorders of phosphorus metabolism End stage renal disease | | Other specified personal risk factors, not elsewhere classified Acute systolic | | (congestive) heart failure Care TeamProvider [facility] Type Phone Fax Service Dates BHARAT, | | TIEN Gallagher MD Internal Medicine May 28, 2018 - Current Collective PortalThis patient | | has registered at the [facility] Emergency Department For more | | information visit: | | [email or web address] PLEASE | | NOTE: 1. Any care [...] or completeness of information | | provided.2019 Oscar - [email or web address] | | Personal history of other diseases of urinary system | | | |July 18, 2018 [facility] [place] [facility] | | Personal history of nicotine dependence | | Other specified respiratory disorders | | Cough | | Radiographic dye allergy status | | Allergy status to narcotic agent status | | Chronic kidney disease, unspecified | | Allergy status to other drugs, medicaments and biological substances status | | | |Jun 19, 2018 [facility] [place] [facility] | | Other chest pain | | End stage renal disease | | Dependence on renal dialysis | | Personal history of nicotine dependence | | Fluid overload, unspecified | | Heart failure, unspecified | | emt intermediate (current) use of opiate analgesic | | Allergy status to other drugs, medicaments and biological substances status | | Radiographic dye allergy status | | Other meterman (current) drug therapy | | | |Jun 12, 2018 [facility] [place] [facility] | | Shortness of breath | | Fluid overload, unspecified | | Hyperkalemia | | Radiographic dye allergy status | | Allergy status to narcotic agent status | | Other meterman (current) drug therapy | | Allergy status to other drugs, medicaments and biological substances status | | Unspecified asthma, uncomplicated | | Dependence on renal dialysis | | Chronic kidney disease, unspecified | | | |Jun 11, 2018 [facility] [place] [facility] | | Chronic pulmonary edema | | Shortness of breath | | Radiographic dye allergy status | | Personal history of nicotine dependence | | Other senior living (current) drug therapy | | USP (current) use of opiate analgesic | | | | | | | |Recent Inpatient Visit Summary | |Date Facility City State Type Diagnoses or Chief Complaint | |Aug 20, 2018 [facility] General Medicine | | Pleural Effusion | | Chronic pulmonary edema | | | |July 18, 2018 [facility] General Medicine | | Hypoxemia | | Personal history of other diseases of urinary system | | Fever, unspecified | | Pleural effusion, not elsewhere classified | | End stage renal disease | | Dependence on renal dialysis | | Anemia in chronic kidney disease | | Pulmonary hypertension, unspecified | | Chronic right heart failure | | | |May 26, 2018 [facility] General Medicine | | Acute respiratory distress [...] 28, 2018 - Current | | | |[employer] Portal | |This patient has registered at the [facility] Emergency Department | |For more information visit: [id number] | |PLEASE NOTE: | | 1. Any [...] of information provided. | | | |2019 [employer] - [email or web address] | + + + +---------+ + + [...]
--- OUTSIDE RECORDS SUMMARY | ~2019-01-02 | XMS | Encounter Summary ---
Demographics + + + | Address | [address] | | | [place] [address] | + + + | Home Phone [...] | | | | | [place] [address] | | + + + + + | Thania Mallory | ECON | [address] | | | | | [place] [address] | | + + + + + | Deidra Weldon | ECON | [address] | | | | | [place] | | | | | [address] | | + + + + + Care Team Providers + +------+ + | Care Hairspring Studder Name | Role | Phone | + [...] | Update | | | | ANNALISA [facility] | [facility] | | | | | Rd [place], [place] | [place], [place] | | | | | [address] | [address] | | | | | [phone] | | | +--------+ + + + [...] Denise | | | | | | [place] | | | | | | [address] | | | | | | [phone] | | | | | | | | +--------+ + + + + documented as of this encounter Visit Diagnoses Not on filedocumented in this encounter"
--- OUTSIDE RECORDS SUMMARY | ~2019-01-02 | XMS | Encounter Summary ---
Demographics + + + | Address | [address] | | | [place] [address] | + + + | Home Phone [...] | | | | | [place] [address] | | + + + + + | Thania Mallory | ECON | [address] | | | | | [place] [address] | | + + + + + | Deidra Weldon | ECON | [address] | | | | | [place] | | | | | [address] | | + + + + + Care Team Providers + +------+ + | Care Meter Maintenance Person Name | Role | Phone | [...] | Committee | | | | ANNALISA [facility] | [facility] | recommendations) | | | | Rd [place], [place] | [place], [place] | | | | | [address] | [address] | | | | | [phone] | | | +--------+ + + + [...] Denise | | | | | | [place] | | | | | | [address] | | | | | | [phone] | | | | | | | | +--------+ + + + + documented as of this encounter Visit Diagnoses Not on filedocumented in this encounter"
--- OUTSIDE RECORDS SUMMARY | ~2019-01-02 | XMS | Encounter Summary ---
Demographics + + + | Address | [address] | | | [place] [address] | + + + | Home Phone [...] + + + + + | Cory Wledon | ECON | [address] | | | | | [place] [address] | | + + + + + | Thania Mallory | ECON | [address] | | | | | [place] [address] | | + + + + + | Deidra Weldon | ECON | [address] | | | | | [place] | | | | | [address] | | + + + + + Care Team Providers + +------+ + | Care Nurse Sitter Name | Role | Phone | [...] | | | Caro Chan Mailcode: | [facility] [place] | | | | | [address] | [address] | | | | | [address] | [phone] | | | | | [place], [place] | | | | | | [address] | | | | | | [phone] | | | +--------+ + + + [...] | | | | | | [place], [place] | | | | | | [address] | | | | | | [phone] | | | | | | | | +--------+ + + + + documented as of this encounter Visit Diagnoses Not on filedocumented in this encounter"
--- OUTSIDE RECORDS SUMMARY | ~2019-01-02 | XMS | Encounter Summary ---
Demographics + + + | Address | [address] | | | [place] [address] | + + + | Home Phone [...] | | | | | [place] [address] | | + + + + + | Thania Mallory | ECON | [address] | | | | | [place] [address] | | + + + + + | Deidra Weldon | ECON | [address] | | | | | [place] | | | | | [address] | | + + + + + Care Team Providers + +------+ + | Care Gripper Installer Name | Role | Phone | [...] Shun | | | | | ANNALISA [facility] | [facility] | | | | | Rd [place], [place] | [place], [place] | | | | | [address] | [address] | | | | | [phone] | | | +--------+ + + + [...] [place] | | | | | | [address] | | | | | | [phone] | | | | | | | | +--------+ + + + + documented as of this encounter Visit Diagnoses Not on filedocumented in this encounter"
--- OUTSIDE RECORDS SUMMARY | ~2019-01-02 | XMS | Encounter Summary ---
Demographics + + + | Address | [address] | | | [place] [address] | + + + | Home Phone [...] | | | | | [place] [address] | | + + + + + | Thania Mallory | ECON | [address] | | | | | [place] [address] | | + + + + + | Deidra Weldon | ECON | [address] | | | | | [place] | | | | | [address] | | + + + + + Care Team Providers + +------+ + | Care Medical Device Sales Representative Name | Role | Phone [...] | Update | | | | ANNALISA [facility] | [facility] | | | | | Rd [place], [place] | [place], [place] | | | | | [address] | [address] | | | | | [phone] | | | +--------+ + + + [...] | | | | | | [place] | | | | | | [address] | | | | | | [phone] | | | | | | | | +--------+ + + + + documented as of this encounter Visit Diagnoses Not on filedocumented in this encounter"
--- OUTSIDE RECORDS SUMMARY | ~2019-01-02 | XMS | Encounter Summary ---
Demographics + + + | Address | [address] | | | [place] [address] | + + + | Home Phone [...] | | | | | [place] [address] | | + + + + + | Thania Mallory | ECON | [address] | | | | | [place] [address] | | + + + + + | Deidra Welodn | ECON | [address] | | | | | [place] | | | | | [address] | | + + + + + Care Team Providers + +------+ + | Care Asphalt Machine Operator Name | Role | Phone [...] check-in on | | | | Rd [place], [place] | [place], [place] | psychosocial goals | | | | [address] | [address] | related to listing | | | | [phone] | | status) | +--------+ + + [...] Denise | | | | | | [place], [place] | | | | | | [address] | | | | | | [phone] | | | | | | | | +--------+ + + + + documented as of this encounter Visit Diagnoses Not on filedocumented in this encounter"
--- OUTSIDE RECORDS SUMMARY | ~2019-01-02 | XMS | Encounter Summary ---
Demographics + + + | Address | [address] | | | [place] [address] | + + + | Home Phone [...] | | | | | [place] [address] | | + + + + + | Thania Mallory | ECON | [address] | | | | | [place] [address] | | + + + + + | Deidra Weldon | ECON | [address] | | | | | [place] | | | | | [address] | | + + + + + Care Team Providers + +------+ + | Care Failure Analysis Technician Name | Role | Phone | [...] | Update | | | | ANNALISA [facility] | [facility] | | | | | Rd [place], [place] | [place], [place] | | | | | [address] | [address] | | | | | [phone] | | | +--------+ + + + [...] Denise | | | | | | [place] | | | | | | [address] | | | | | | [phone] | | | | | | | | +--------+ + + + + documented as of this encounter Visit Diagnoses Not on filedocumented in this encounter"
--- OUTSIDE RECORDS SUMMARY | ~2019-01-02 | XMS | Encounter Summary ---
Demographics + + + | Address | [address] | | | [place] [address] | + + + | Home Phone [...] Author | [facility] | | | and Josephana | + + + | Organization | [facility] | | [...] Team Providers + +------+ + | Care Theatrical Scenic Designer Name | Role | Phone | [...] + + | 12/17/ | Telephone | [facility] | [place], Appointment | | 2019 | | MUKILTEO CASE | Irish Obrien CMA | (Appointment with | | | | MANAGEMENT [address] | | PCP needed) | | | | RASHAUN TORRES | | | | | | [place], [place] | | | | | | [address] | | | | | | [phone] | | | +--------+ + + + [...] E | | | | | | [place] [address] | | | | | | [phone] | | | | | | | | +--------+---------+ + + + documented as of this encounter Visit Diagnoses Not on filedocumented in this encounter"
--- OUTSIDE RECORDS SUMMARY | ~2019-01-02 | XMS | Encounter Summary ---
Demographics + + + | Address | [address] | | | [place] [address] | + + + | Home Phone [...] | | | | | [place] [address] | | + + + + + | Thania Mallory | ECON | [address] | | | | | [place] [address] | | + + + + + | Deidra Weldon | ECON | [address] | | | | | [place] | | | | | [address] | | + + + + + Care Team Providers + +------+ + | Care Check Grader Name | Role | Phone | [...] Transplant | | | | ANNALISA [place] | [facility] [address] | Evaluation | | | | Rd [place], [place] | [place], [place] | | | | | [address] | [address] | | | | | [phone] | | | +--------+ + + + [...] Denise | | | | | | [place] | | | | | | [address] | | | | | | [phone] | | | | | | | | +--------+ + + + + documented as of this encounter Visit Diagnoses Not on filedocumented in this encounter"
--- OUTSIDE RECORDS SUMMARY | ~2019-01-02 | XMS | Encounter Summary ---
Demographics + + + | Address | [address] | | | [place] [address] | + + + | Home Phone [...] | | | | | [place] [address] | | + + + + + | Thania Mallory | ECON | [address] | | | | | [place] [address] | | + + + + + | Deidra Weldon | ECON | [address] | | | | | [place] | | | | | [address] | | + + + + + Care Team Providers + +------+ + | Care Processing Rep Name | Role | Phone | [...] Update | | | | ANNALISA [facility] | [facility] [address] | | | | | [place], [place] | [place], [place] | | | | | [address] | [address] | | | | | [phone] | [phone] | | | | | | | [...] Denise | | | | | | [place] | | | | | | [address] | | | | | | [phone] | | | | | | | | +--------+ + + + + documented as of this encounter Visit Diagnoses Not on filedocumented in this encounter"
--- OUTSIDE RECORDS SUMMARY | ~2019-01-02 | XMS | Encounter Summary ---
Demographics + + + | Address | [address] | | | [place] [address] | + + + | Home Phone [...] + | Author | [facility] [employer] (Historical as of | | | 10-20-18) | + + + | Organization | [facility] [employer] (Historical as of | | | [...] Team Providers + +------+ + | Care Spiritual Care Coordinator Name | Role | Phone [...] | | | | Jaciel E | [facility] | | | | | | [place], [place] | [address] | | | | | | [address] | [address] | | | | | | Phone: | [employer], [place] | | | | | | [phone] | [address] | | | | | | Fax: | Phone: | | | | | | [phone] | [phone] | | | | | | | Fax: | | | | | | | [phone] | + + + + + + [...] | | | | [address] | [place], [place] | | | | | | [place], [place] | [address] | | | | | | [address] | Phone: | | | | | | Phone: | [phone] | | | | | | [phone] | | | | | | | Fax: | | | | | | | [phone] | | + + + + + + + Encounter Details +--------+---------+ + + + | Date | Type | Department | Care Team | Description | +--------+---------+ + + + | 10/02/ | Office | [facility] | Denny Alexander | Pleural effusion | | 2019 | Visit | Pulmonology 1100 | Deny Briggs MD 1100 | (Primary Dx); SHADE | | | | Shantelle PRAJAPATI | Shantelle Grissom E | (obstructive sleep | | | | [place], [place] | [place] [address] | apnea); Marijuana | | | | [address] | [phone] | abuse | | | | [phone] | | | +--------+---------+ + + + [...] y.o. 1995 Referred from: Usha Martínez MD [address] [facility] [address] [place] [address] Referral reason: Chief Complaint Patient presents with [...] May. Back then she was admitted at [facility] for worsening dyspnea fo und to have a large right pleural effusion and ascites from fluid overload. Pleural fluid w as thought to be transudative. She then underwent another thoracentesis on 07/21/18. After that she had another one on 08/21 at [facility] wherein 2.5L was removed. She then had re -expansion pulmonary edema on the right and was transferred to [facility]. This had improved. Currently she is feeling [...] use. She is dialyzed Q MWF. Her inside b2b sales is Dr. Anguiano and Dr. Mahmood is her continuous wave operator. Review of Systems Constitutional: Negative. Negative for [...] AV FISTULA; Surgeon: Rik Simon MD; Location: [facility] MAIN OR; Service: Vascula r; Laterality: Left; cephalic AV FISTULA REPAIR Left 03/07/2014 Procedure: AV FISTULA - GRAFT REPAIR/REVISION; Surgeon: Rik Simon MD; Location: [facility] MA IN OR; Service: Vascular; Laterality: Left; DECLOT GRAFT Left 03/07/2014 Procedure: GRAFT - DECLOT; Surgeon: Rik Simon MD; Location: [facility] MAIN OR; Service: Vas cular; Laterality: Left; DIALYSIS FISTULA CREATION N/A 04/08/2014 Procedure: DIALYSIS CATHETER - INSERTION; Surgeon: Rik Simon MD; Location: [facility] MAIN OR ; Service: Vascular; Laterality: N/A; tunneled catheter LAPAROSCOPIC PERITONEAL DIALYSIS CATHETER INSERTION x2 LAPAROSCOPIC PERITONEAL DIALYSIS CATHETER INSERTION Right 07/2013 current dialysis access MWF dialysis RENAL BIOPSY Left 2003 SUPERFICIALIZATION OF AV FISTULA Left 06/24/2014 Procedure: AV FISTULA - SUPERFICIALIZATION; Surgeon: Rik Simon MD; Location: [facility] MA[facility] OR; Service: Vascular; Laterality: Left; Family [...] file Social History Narrative She lives in [facility]. She does not work. She [...] to the nearest ED which i s [place] to have it drained. - I will have her repeat her CXR when she returns for follow up. - if she requires frequent thoracenteses, then another option in the future would be pleuro desis. 2. SHADE (obstructive sleep apnea) - in the hospital, she was told she was desaturating at night and her mother also noted cycle counter eic events when sleeping. I recommended having [...] 01/02/2019). in this encounter Plan of Treatment + +--------+ + + | Name | [...]
--- OUTSIDE RECORDS SUMMARY | ~2019-01-02 | XMS | Clinical Summary ---
Demographics + + + | Address | [address] | | | [place] [address] | + + + | Home Phone [...] | | | | | [place] [address] | | + + + + + | Thania Mallory | ECON | [address] | | | | | [place] [address] | | + + + + + | Deidra Weldon | ECON | [address] | | | | | [place], [place] | | | | | [address] | | + + + + + Care Team Providers + +------+ + | Care Library Monitor Name | Role | Phone | + +------+ + | Jonathan Alonso MD | PCP | | + +------+ + Source Comments DANILO is fully live on both EpicCare Ambulatory and EpicCare InPatient.[facility] + + + + + + [...] Denise | | | | | | [place], [place] | | | | | | [address] | | | | | | [phone] | | | | | | | [...] | | | | | | | [address] | | + +--------+ +--------+ + +--------+ | CAPTAIN ROOM SERVICE MEDICAID | CAPTAIN ROOM SERVICE | xxxxxxxx | Effect | | | [...] | RENAL | | for | | [place], | | | | RECIPI | | all | | [place] [address] | | | | ENT | | [...] | | al/Fam | | 1995 | [phone] | [address] [place] | | | kamron | | | 2 (Home) | [address] | | | | | | [phone] | | | | | | | 0 (Work) | | + +--------+ +--------+ + + | CORY ALVES | Wanderbhavin | Mother | [birth year] | | [address] | | | l | | [address] | [phone] | 3 [place] | | | Gamal | | | 2 (Home) | [address] | | | g | | | | | + +--------+ +--------+ + +
--- OUTSIDE RECORDS SUMMARY | ~2019-01-02 | XMS | Encounter Summary ---
Demographics + + + | Address | [address] | | | [place] [address] | + + + | Home Phone [...] | | | | | [place] [address] | | + + + + + | Thania Mallory | ECON | [address] | | | | | [place] [address] | | + + + + + | Deidra Weldon | ECON | [address] | | | | | [place] | | | | | [address] | | + + + + + Care Team Providers + +------+ + | Care Fishing Tool Supervisor Name | Role | Phone | [...] | Update | | | | ANNALISA [facility] | [facility] | | | | | Rd [place], [place] | [place], [place] | | | | | [address] | [address] | | | | | [phone] | | | +--------+ + + + [...] | | | | | | [place] | | | | | | [address] | | | | | | [phone] | | | | | | | | +--------+ + + + + documented as of this encounter Visit Diagnoses Not on filedocumented in this encounter"
--- OUTSIDE RECORDS SUMMARY | ~2019-01-02 | XMS | Encounter Summary ---
Demographics + + + | Address | [address] | | | [place] [address] | + + + | Home Phone [...] | | | | | [place] [address] | | + + + + + | Thania Mallory | ECON | [address] | | | | | [place] [address] | | + + + + + | Deidra Weldon | ECON | [address] | | | | | [place] | | | | | [address] | | + + + + + Care Team Providers + +------+ + | Care Marketing Sales Consultant Name | Role | Phone [...] form) | | | | ANNALISA [facility] | [facility] | | | | | Rd [place], [place] | [place], [place] | | | | | [address] | [address] | | | | | [phone] | | | +--------+ + + + [...] Denise | | | | | | [place] | | | | | | [address] | | | | | | [phone] | | | | | | | | +--------+ + + + + documented as of this encounter Visit Diagnoses Not on filedocumented in this encounter"
--- OUTSIDE RECORDS SUMMARY | ~2019-01-02 | XMS | Encounter Summary ---
Demographics + + + | Address | [address] | | | [place] [address] | + + + | Home Phone [...] | | | | | [place] [address] | | + + + + + | Thania Mallory | ECON | [address] | | | | | [place] [address] | | + + + + + | Deidra Weldon | ECON | [address] | | | | | [place] | | | | | [address] | | + + + + + Care Team Providers + +------+ + | Care Broom Worker Name | Role | Phone | [...] | Requested | | | | [address] [facility] | [facility] | | | | | Rd [place], [place] | [place], [place] | | | | | [address] | [address] | | | | | [phone] | | | +--------+ + + + [...] [place] | | | | | | [address] | | | | | | [phone] | | | | | | | | +--------+ + + + + documented as of this encounter Visit Diagnoses Not on filedocumented in this encounter"
--- OUTSIDE RECORDS SUMMARY | ~2019-01-02 | XMS | Encounter Summary ---
Demographics + + + | Address | [address] | | | [place] [address] | + + + | Home Phone [...] | | | | | [place] [address] | | + + + + + | Thania Mallory | ECON | [address] | | | | | [place] [address] | | + + + + + | Deidra Weldon | ECON | [address] | | | | | [place] | | | | | [address] | | + + + + + Care Team Providers + +------+ + | Care Protective Signal Operations Supervisor Name | Role | Phone | + +------+ + | Shahid Camargo MD | PCP | | + +------+ + Encounter Details +--------+ + + + + | Date | Type | Department | Care Team | Description | +--------+ + + + + | 10/30/ | Documentati | Pediatric | Kelsi Maritnez, | | | 2012 | on | Nephrology at | RN [address] | | | | | [place] | 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
--- OUTSIDE RECORDS SUMMARY | ~2019-01-02 | XMS | Encounter Summary ---
Demographics + + + | Address | [address] | | | [place] [address] | + + + | Home Phone [...] | | | | | [place] [address] | | + + + + + | Thania Mallory | ECON | [address] | | | | | [place] [address] | | + + + + + | Deidra Weldon | ECON | [address] | | | | | [place] | | | | | [address] | | + + + + + Care Team Providers + +------+ + | Care Vp Strategy Name | Role | Phone | [...] questions) | | | | ANNALISA [place] | [facility] | | | | | [place], [place] | [place], [place] | | | | | [address] | [address] | | | | | [phone] | | | +--------+ + + + [...] Denise | | | | | | [place] | | | | | | [address] | | | | | | [phone] | | | | | | | | +--------+ + + + + documented as of this encounter Visit Diagnoses Not on filedocumented in this encounter"
--- OUTSIDE RECORDS SUMMARY | ~2019-01-02 | XMS | Encounter Summary ---
Demographics + + + | Address | [address] | | | [place] [address] | + + + | Home Phone [...] | | | | | [place] [address] | | + + + + + | Thania Mallory | ECON | [address] | | | | | [place] [address] | | + + + + + | Deidra Weldon | ECON | [address] | | | | | [place] | | | | | [address] | | + + + + + Care Team Providers + +------+ + | Care Elevator Supervisor Name | Role | Phone | [...] | 2013 | | [id number] | [place], [place] | Update | | | | [address] [facility] | [address] | | | | | Rd [place], [place] | | | | | | [address] | | | | | | [phone] | | | +--------+ + + + [...] | | | | | | [place], [place] | | | | | | [address] | | | | | | [phone] | | | | | | | | +--------+ + + + + documented as of this encounter Visit Diagnoses Not on filedocumented in this encounter"
--- OUTSIDE RECORDS SUMMARY | ~2019-01-02 | XMS | Encounter Summary ---
Demographics + + + | Address | [address] | | | [place] [address] | + + + | Home Phone [...] | | | | | [place] [address] | | + + + + + | Thania Mallory | ECON | [address] | | | | | [place] [address] | | + + + + + | Deidra Weldon | ECON | [address] | | | | | [place] | | | | | [address] | | + + + + + Care Team Providers + +------+ + | Care Community Living Coach Name | Role | Phone | [...] Hoffmann | | | | | [address] [facility] | [facility] | | | | | Rd [place], [place] | [place], [place] | | | | | [address] | [address] | | | | | [phone] | | | +--------+ + + + [...] Denise | | | | | | [place], [place] | | | | | | [address] | | | | | | [phone] | | | | | | | | +--------+ + + + + documented as of this encounter Visit Diagnoses Not on filedocumented in this encounter"
--- OUTSIDE RECORDS SUMMARY | ~2019-01-02 | XMS | Encounter Summary ---
[...] | | | | | [place] [address] | | + + + + + | Thania Mallory | ECON | [address] | | | | | [place] [address] | | + + + + + | Deidra Weldon | ECON | [address] | | | | | [place] | | | | | [address] | | + + + + + Care Team Providers + +------+ + | Care Mobile Homes Repairer Name | Role | Phone | [...] - Renal | | | | [facility] | [facility] | | | | | Rd [place], [place] | [place], [place] | | | | | [address] | [address] | | | | | [phone] | | | +--------+ + + + [...] Denise | | | | | | [place], [place] | | | | | | [address] | | | | | | [phone] | | | | | | | [...]
--- OUTSIDE RECORDS SUMMARY | ~2019-01-02 | XMS | Encounter Summary ---
Demographics + + + | Address | [address] | | | [place] [address] | + + + | Home Phone [...] | | | | | [place] [address] | | + + + + + | Thania Mallory | ECON | [address] | | | | | [place] [address] | | + + + + + | Deidra Weldon | ECON | [address] | | | | | [place] | | | | | [address] | | + + + + + [...] | | | | Caro [place], | | | | | | [place] [address] | | | +--------+ + + + [...] | | | | | | [place], [place] | | | | | | [address] | | | | | | [phone] | | | | | | | [...] DANILO - | [address], | [place] [address] | | | IMMUNOGENETICS/TRANS | [address] | | | | [facility] | | | | + + + + + documented in this encounter Visit Diagnoses Not on filedocumented in this encounter"
--- OUTSIDE RECORDS SUMMARY | ~2019-01-02 | XMS | Encounter Summary ---
Demographics + + + | Address | [address] | | | [place] [address] | + + + | Home Phone [...] | | | | | [place] [address] | | + + + + + | Thania Mallory | ECON | [address] | | | | | [place] [address] | | + + + + + | Deidra Weldon | ECON | [address] | | | | | [place] | | | | | [address] | | + + + + + Care Team Providers + +------+ + | Care Forensic Artist Name | Role | Phone | [...] attempt(s) to | | | | Rd [place], [place] | [place], [place] | contact pt re move | | | | [address] | [address] | and new PAF as | | | | [phone] | | listed) | +--------+ + + [...] | | | | | | [place], [place] | | | | | | [address] | | | | | | [phone] | | | | | | | | +--------+ + + + + documented as of this encounter Visit Diagnoses Not on filedocumented in this encounter"
--- OUTSIDE RECORDS SUMMARY | ~2019-01-02 | XMS | Encounter Summary ---
Demographics + + + | Address | [address] | | | [place] [address] | + + + | Home Phone [...] | | | | | [place] [address] | | + + + + + | Thania Mallory | ECON | [address] | | | | | [place] [address] | | + + + + + | Deidra Weldon | ECON | [address] | | | | | [place] | | | | | [address] | | + + + + + Care Team Providers + +------+ + | Care Self Rising Flour Mixer Name | Role | Phone | [...] | | Nephrology at | MD Emanuel [address] | | | | | [place] | [address] | | | | | [facility] | [place], [place] | | | | | [address] | [address] | | | | | Caro Chan Mailcode: | [phone] | | | | | [address] | | | | | | [place], [place] | | | | | | [address] | | | | | | [phone] | | | +--------+ + + + [...] Denise | | | | | | [place], [place] | | | | | | [address] | | | | | | [phone] | | | | | | | [...]
--- OUTSIDE RECORDS SUMMARY | ~2019-01-02 | XMS | Encounter Summary ---
Demographics + + + | Address | [address] | | | [place] [address] | + + + | Home Phone [...] | | | | | [place] [address] | | + + + + + | Thania Mallory | ECON | [address] | | | | | [place] [address] | | + + + + + | Deidra Weldon | ECON | [address] | | | | | [place] | | | | | [address] | | + + + + + Care Team Providers + +------+ + | Care Night Baker Name | Role | Phone | + [...] Transplant | | | | [facility] | [address] | Evaluation | | | | Rd [place], [place] | [place], [place] | (pre-listing | | | | [address] | [address] | pediatric [place] | | | | [phone] | | update) | +--------+ + + [...] Denise | | | | | | [place] | | | | | | [address] | | | | | | [phone] | | | | | | | | +--------+ + + + + documented as of this encounter Visit Diagnoses Not on filedocumented in this encounter"
--- OUTSIDE RECORDS SUMMARY | ~2019-01-02 | XMS | Encounter Summary ---
Demographics + + + | Address | [address] | | | [place] [address] | + + + | Home Phone [...] | | | | | [place] [address] | | + + + + + | Thania Mallory | ECON | [address] | | | | | [place] [address] | | + + + + + | Deidra Weldon | ECON | [address] | | | | | [place] | | | | | [address] | | + + + + + Care Team Providers + +------+ + | Care Seam Steamer Name | Role | Phone | + [...] check-in on | | | | Rd [place], [place] | [place], [place] | psychosocial goals | | | | [address] | [address] | related to listing | | | | [phone] | | status) | +--------+ + + [...] | | | | | | [place], [place] | | | | | | [address] | | | | | | [phone] | | | | | | | | +--------+ + + + + documented as of this encounter Visit Diagnoses Not on filedocumented in this encounter"
--- OUTSIDE RECORDS SUMMARY | ~2019-01-02 | XMS | Encounter Summary ---
Demographics + + + | Address | [address] | | | [place] [address] | + + + | Home Phone [...] | | | | | [place] [address] | | + + + + + | Thania Mallory | ECON | [address] | | | | | [place] [address] | | + + + + + | Deidra Weldon | ECON | [address] | | | | | [place] | | | | | [address] | | + + + + + Care Team Providers + +------+ + | Care Costume Rental Clerk Name | Role | Phone [...] | list) | | | | [facility] | [facility] | | | | | Rd [place], [place] | [place], [place] | | | | | [address] | [address] | | | | | [phone] | | | +--------+ + + + [...] Denise | | | | | | [place], [place] | | | | | | [address] | | | | | | [phone] | | | | | | | | +--------+ + + + + documented as of this encounter Visit Diagnoses Not on filedocumented in this encounter"
--- OUTSIDE RECORDS SUMMARY | ~2019-01-02 | XMS | Encounter Summary ---
Demographics + + + | Address | [address] | | | [place] [address] | + + + | Home Phone [...] | | | | | [place] [address] | | + + + + + | Thania Mallory | ECON | [address] | | | | | [place] [address] | | + + + + + | Deidra Weldon | ECON | [address] | | | | | [place] | | | | | [address] | | + + + + + Care Team Providers + +------+ + | Care Locksmith Apprentice Name | Role | Phone | [...] Shun | | | | | [address] [facility] [address] | [facility] | | | | | [place], [place] | [place] [address] | | | | | [address] | [phone] | | | | | | | [...] from patient and her family Pharmacy Preferences: [id number] [address] [place] [address] Updated Outpatient Medications: Current Medication List Name [...] questions regarding this information contact pharmacy, pager #[phone] Thank you, Juan David Batres Pager [id number] signed by Juan David Batres [facility] at [...] Denise | | | | | | [place] | | | | | | [address] | | | | | | [phone] | | | | | | | | +--------+ + + + + documented as of this encounter Visit Diagnoses Not on filedocumented in this encounter"
--- OUTSIDE RECORDS SUMMARY | ~2019-01-02 | XMS | Encounter Summary ---
Demographics + + + | Address | [address] | | | [place] [address] | + + + | Home Phone [...] Author | [facility] | | | and [place] | + + + | Organization | [facility] | | [...] Team Providers + +------+ + | Care Residency Director Name | Role | Phone | [...] + + | 12/10/ | Hospital | [facility] | Rayray Powers MD | Sepsis, due to | | 2019 - | Encounter | [facility] | [address] | unspecified | | | | CARE FLOOR [address] | [place], [place] | organism, | | 12/14/ | | [address] | [address] | unspecified whether | | 2019 | | [place], [place] | [phone] | acute organ | | | | [address] | | dysfunction present | | | | [phone] | Lee Harris MD | ([facility]) (Primary Dx); | | | | | [address] | Pneumonia of right | | | | | [place] [address] | lower lobe due to | | | | | [phone] | infectious organism | | | | | | ([facility]); Hypoxia; | | | | | Jw Neri, DO [address] | Hypervolemia, | | | | | [address] | unspecified | | | | | [place] [address] | hypervolemia type; | | | | | [phone] | ESRD on dialysis | | | | | | ([facility]); Hyperkalemia; | | | | | | Acute on chronic | | | | | | respiratory failure | | | | | | with hypoxia and | | | | | | hypercapnia ([facility]); | | | | | | Acute respiratory | | | | | | failure with hypoxia | | | | | | ([facility]); Anemia in | | | | | | ESRD (end-stage | | | | | | renal disease) | | | | | | (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); | | | | | | Chronic right-sided | | | | | | heart failure (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); ESRD on | | | | [...] | | | | | function ([facility]); | | [...] | | | | | | dialysis ([facility]); | | [...] might be different from the or iginal. [facility] Service: Hospitalist Physician Discharge [...] 12/12/2018 Clotted dialysis access ([facility]) 2014 Congestive heart failure (HCC) ESRD (end stage renal disease) ([facility]) HSP (Henoch-Schonlein purpura) nephritis ([facility]) 1988 Hypertension Pericardial effusion without cardiac tamponade 11/07/2018 Past Surgical History: Procedure Laterality Date ABDOMEN SURGERY AV FISTULA REPAIR 02/24/2014 LEFT Radical Cephalic Fistula Creation; Laterality: Left; Surgeon: Blake Chavarria MD ; Location: [facility] MAIN OR AV FISTULA REPAIR [...] - SUPERFICIALIZATION; Surgeon: Emanuel Simon MD; Location: [facility] OR; Service: Vascular; Laterality: Left; OTHER SURGICAL HISTORY Left 04/08/2014 AV FISTULA PLACEMENT - Procedure: AV FISTULA; Surgeon: Rik Simon MD; Location: [facility]; Service: Vascular; Laterality: Left; cephalic OTHER SURGICAL HISTORY Left 03/07/2014 DECLOT GRAFT - Procedure: GRAFT - DECLOT; Surgeon: Rik Simon MD; Location: [facility] ; Service: Vascular; Laterality: Left; peritoneal [...] hours. No results for input(s): PHART, PO2ART, LLU9UWP, K1PDECFC, BEART in the last 168 hours. No results for input(s): APTT, INR, PTT in the last 168 hours. No results for input(s): TSH in the last 168 hours. Invalid input(s): T3FREE, FREET4 No results for input(s): TROPONINT in the last 168 hours. Invalid input(s): CKTOTAL, TROPONINI, CKMBINDEX Disposition: home No discharge procedures on file. Follow up: Jonathan Alonso MD [address] [place] [address] Schedule an appointment as soon as possible for a visit hospital follow up Jorje Camp, DO [address], [address] [place] [address] Schedule an appointment as soon as possible [...] sent through Care Everywhere.Bacteremia, Leti pected (Adult) (Bolivian)documented in this encounter Medications at Time of [...] might be diff erent from the original. [facility] Service: Infectious Diseases Progress Note [...] Procedure Component Value Units Date/Time Culture, Blood [[id number]] Collected: 12/12/18 1943 Order Status: Canceled Lab Status: No result Specimen: Peripheral Blood Culture, Body Fluid Sterile [[id number]] Order Status: No result Lab Status: No result Specimen: Body Fluid from Pleural Fluid, Right Culture, Blood [[id number]] Collected: 12/12/18 0502 Order Status: Completed Lab Status: Preliminary result Updated: 12/13/18 1324 Specimen: Peripheral Blood Special Requests RWRIST Special Requests Testing performed at [facility];[address] [place] [address] RESULT NO GROWTH AT THIS TIME RESULT Testing performed at [facility], [address] [place] [address] Comment: Testing performed at [facility], [address] [place] [address] Influenza A and B RNA, NAAT [[id number]] Collected: 12/11/18 1556 Order Status: Completed Lab Status: Final result Updated: 12/11/18 1619 Influenza A NEGATIVE Influenza B NEGATIVE Comment: Testing performed by Molecular Methodology Testing performed at [facility];[address] [place] [address] 23821 Flu Swab Collection [[id number]] Collected: 12/11/18 1546 Order Status: Completed Lab Status: Final result Updated: 12/11/18 1549 Specimen: Tissue from Nasopharynx Collection SPECIMEN RECEIVED IN LAB Comment: Testing performed at [facility];[address] [place] [address] 18753 Culture, Blood [[id number]] Collected: 12/11/18 0615 Order Status: Completed Lab Status: Preliminary result Updated: 12/12/18 1134 Specimen: Peripheral Blood Special Requests RAC Special Requests Testing performed at [facility];[address] [place] [address]20 RESULT NO GROWTH AT THIS TIME RESULT Testing performed at [facility], [address] [place] [address] 46100 Comment: Testing performed at [facility], [address] [place] [address] 8[address] Culture, Blood [[id number]] (Abnormal) Collected: 12/10/18 2343 Order Status: Completed Lab Status: Final result Updated: 12/13/18 1009 Specimen: Blood from Line Gram Stain Result -- GRAM POSITIVE COCCI IN CLUSTERS SEEN IN AEROBIC BOTTLE SEEN IN ANAEROBIC BOTTLE Gram Stain Result -- SMEAR RESULTS CALLED TO AND READ BACK BY: Brigitte CARTER 6RDerick @ 6093 12/11/18 CDS RESULT STAPHYLOCOCCUS SPECIES, COAGULASE NEGATIVE RESULT GROWTH IN TWO OF TWO BOTTLES RESULT -- TIME TO DETECTION: 0.69 DAYS RESULT POSSIBLE CONTAMINANT, CLINICAL CORRELATION REQUIRED. RESULT Testing performed at [facility], [address] [place] [address] 41832 Comment: Testing performed at [facility], [address] [place] [address] 48019 Microbiology Results (72 hrs) Procedure Component Value Units Date/Time Culture, Blood [[id number]] Collected: 12/12/18 0502 Order Status: Completed Lab Status: Preliminary result Updated: 12/13/18 1324 Specimen: Peripheral Blood Special Requests RWRIST Special Requests Testing performed at [facility];[address] [place] [address] 32101 RESULT NO GROWTH AT THIS TIME RESULT Testing performed at [facility], [address] [place] [address] 20778 Comment: Testing performed at [facility], [address] [place] [address] 61603 Influenza A and B RNA, NAAT [[id number]] Collected: 12/11/18 1556 Order Status: Completed Lab Status: Final result Updated: 12/11/18 1619 Influenza A NEGATIVE Influenza B NEGATIVE Comment: Testing performed by Molecular Methodology Testing performed at [facility];[address] [place] [address] 64063 Flu Swab Collection [[id number]] Collected: 12/11/18 1546 Order Status: Completed Lab Status: Final result Updated: 12/11/18 1549 Specimen: Tissue from Nasopharynx Collection SPECIMEN RECEIVED IN LAB Comment: Testing performed at [facility];[address] [place] [address] 84698 IMAGING: No new images for review today. [...] was completed later after rounds. Dictation software, [employer], was used which may contain error for [...] Jw Santos, DO - 019 1442 PDT [facility] Service: Hospitalist Progress Note Pt: Dara Weldon AGE/SEX: 23 y.o. female : 1995 ROOM: [facility]/6612-01 TODAY'S DATE: 12/13/2018 Hospital Day: LOS: 2 [...] PASP is 73 mmHg - Baseline weight [id number]. In acute exacerbation - HD per nephrology [...] Reno Saeed MD - 12/13/2018 1132 PDT [facility] Service: Infectious Diseases Progress Note [...] Procedure Component Value Units Date/Time Culture, Blood [[id number]] Collected: 12/12/18 194 Order Status: Canceled Lab Status: No result Specimen: Peripheral Blood Culture, Body Fluid Sterile [[id number]] Order Status: No result Lab Status: No result Specimen: Body Fluid from Pleural Fluid, Right Culture, Blood [[id number]] Collected: 12/12/18 0502 Order Status: Sent Lab Status: In process Updated: 12/12/18 1005 Specimen: Peripheral Blood Influenza A and B RNA, NAAT [[id number]] Collected: 12/11/18 1556 Order Status: Completed Lab Status: Final result Updated: 12/11/18 1619 Influenza A NEGATIVE Influenza B NEGATIVE Comment: Testing performed by Molecular Methodology Testing performed at [facility];[address] [place] [address] 88579 Flu Swab Collection [[id number]] Collected: 12/11/18 1546 Order Status: Completed Lab Status: Final result Updated: 12/11/18 1549 Specimen: Tissue from Nasopharynx Collection SPECIMEN RECEIVED IN LAB Comment: Testing performed at [facility];[address] [place] [address];[place] [address] Culture, Blood [[id number]] Collected: 12/11/18 0615 Order Status: Completed Lab Status: Preliminary result Updated: 12/12/18 1134 Specimen: Peripheral Blood Special Requests RAC Special Requests Testing performed at [facility];[address] [place] [address] 27312 RESULT NO GROWTH AT THIS TIME RESULT Testing performed at [facility], [address] [place] [address] Comment: Testing performed at [facility], [address] [place] [address]47 Culture, Blood [[id number]] (Abnormal) Collected: 12/10/18 2343 Order Status: Completed [...] CLINICAL CORRELATION REQUIRED. RESULT Testing performed at [facility], [address] [place] [address] 94035 Comment: Testing performed at [address] [address] Microbiology Results (72 hrs) Procedure Component Value Units Date/Time Culture, Blood [[id number]] Collected: 12/12/18 0502 Order Status: Sent Lab Status: In process Updated: 12/12/18 1005 Specimen: Peripheral Blood Influenza A and B RNA, NAAT [[id number]] Collected: 12/11/18 1556 Order Status: Completed Lab Status: Final result Updated: 12/11/18 1619 Influenza A NEGATIVE Influenza B NEGATIVE Comment: Testing performed by Molecular Methodology Testing performed at [facility];[address] [place] [address] 93960 Flu Swab Collection [[id number]] Collected: 12/11/18 1546 Order Status: Completed Lab Status: Final result Updated: 12/11/18 1549 Specimen: Tissue from Nasopharynx Collection SPECIMEN RECEIVED IN LAB Comment: Testing performed at [facility];[address] [place] [address] 59735 Culture, Blood [[id number]] Collected: 12/11/18 0615 Order Status: Completed Lab Status: Preliminary result Updated: 12/12/18 1134 Specimen: Peripheral Blood Special Requests RAC Special Requests Testing performed at [facility];[address] [place] [address] 09255 RESULT NO GROWTH AT THIS TIME RESULT Testing performed at [address] [address] Comment: Testing performed at [facility], [address] [place] [address] [place] [address] Culture, Blood [[id number]] (Abnormal) Collected: 12/10/18 2343 Order Status: Completed Lab Status: Final result Updated: 12/13/18 1009 Specimen: Blood from Line Gram Stain Result -- GRAM POSITIVE COCCI IN CLUSTERS SEEN IN AEROBIC BOTTLE SEEN IN ANAEROBIC BOTTLE Gram Stain Result -- SMEAR RESULTS CALLED TO AND READ BACK BY: Brigitte CARTER 6RP @ 0335 12/11/18 CDS RESULT STAPHYLOCOCCUS SPECIES, COAGULASE NEGATIVE RESULT GROWTH IN TWO OF TWO BOTTLES RESULT -- TIME TO DETECTION: 0.69 DAYS RESULT POSSIBLE CONTAMINANT, CLINICAL CORRELATION REQUIRED. RESULT Testing performed at [facility], [address] [place] [address] 03529 Comment: Testing performed at [facility], [address] [place] [address] 599[address] IMAGING: No new images for review today. [...] was completed later after rounds. Dictation software, [employer], was used which may contain error for [...] (12/12/18 0827) Vida Whittaker RPH - 11/2018 9918 PDTClinical Pharmacy Note: Vancomycin Day 1 Referring [...] 12/12/2018 13:33 Lee Aguirre MD - 12/12/2018 0895 PDT [facility] Adult Hospitalist Progress Note Hospital [...] Jimenes Ma, MD 8:29 12/12/2018 aylor Mcnair [facility] - 10/2018 1946 PDT Clinical Pharmacy Note: [...] [address] | | | | | | [place] [address] | | | | | | [phone] | | | | | | | [...] R?MRN: | | | | | | [id number] | | | [id number] | | | riteri | | | [...] | | | St. | | | [place] | | | y | | | [...] | | | St. | | | [place] | | | y | | | [...] | | | St. | | | [place] | | | y | | | [...] | | | St | | | [place] | | | y | | | [...] St | | | | | | [place] | | | y | | | [...] | | | St. | | | [place] | | | y | | | [...] | | | St. | | | [place] | | | y H. | | [...] | | | St. | | | [place] | | | y H. | | [...] | | | St. | | | [place] | | | y H. | | [...] | | | St. | | | [place] | | | y H. | | [...] | | | St. | | | [place] | | | y H. | | [...] | | | St. | | | [place] | | | y H. | | [...] | | | St. | | | [place] | | | y H. | | [...] | | | MD | | | Photogrammetric Surveyor | | | al | | | [...] | | | 4-070e | | | [id number] | | | 2b | | | [...] QB 450 AP | | | -200 Dyeing Machine Feeder 170 Constitutional: pt appears without | | [...] | | | | | | at [facility], [address] | | | | | | [facility], | | | | | | [place] [address] | | | | | |Testing performed at [facility], [address] [facility], [place] [address] | | | | | | | | | | + + +--- + + + + + | Specimen | + + | Blood | + + + + + + + | Performing | Address | City/State/Zipcode | Phone Number | | Organization | | | | + + + + + | [facility] | [address] | [place] [address] | [phone] | + + + + + Basic [...] | 9.4 | 8.5 - 10.5 | [facility] | | | | | mg/dL | LABORATORY | | + + + + + + | Estimated | 7 (L)Comment: GFR <60: | >60 | [facility] | | | GFR | CHRONIC [...] | | | | | performed at [facility], [address] | | | | | | [facility], | | | | | | [place] [address] | | | | + + + + + + + + | Specimen | + + | Blood | + + + + + + + | Performing | Address | City/State/Zipcode | Phone Number | | Organization | | | | + + + + + | [facility] | [address] | [place] [address] | [phone] | + + + + + XR [...] 11 (L)Comment: GFR <60: | >60 | [facility] | | | GFR | CHRONIC [...] | | | | | performed at [facility], [address] | | | | | | [facility], | | | | | | [place] [address] | | | | + + + + + + + + | Specimen | + + | Blood | + + + + + + + | Performing | Address | City/State/Zipcode | Phone Number | | Organization | | | | + + + + + | [facility] | [address] | [place] [address] | [phone] | + + + + + [place] [...] 8.6 (H)Comment: Testing | <0.5 mg/dL | [facility] | | | | performed at [facility], [address] | | LABORATORY | | | | [address], | | | | | | [place] [address] | | | | + + + + + + + + | Specimen | + + | Blood | + + + + + + + | Performing | Address | City/State/Zipcode | Phone Number | | Organization | | | | + + + + + | [facility] | [address] | [place] [address] | [phone] | + + + + + Culture, [...] LABORATORY | | | | Blvd;[place] [address] | | | | + + + + + + | RESULT | NO GROWTH 6 DAYS | | [facility] | | | | | | LABORATORY | | + + + + + + | RESULT | Testing performed at | | [facility] | | | | [facility], [address] | | LABORATORY | | | | [place] | | | | | | [id number]: Testing | | | | | | performed at [facility], [address] | | | | | [address], [place] | | | | | | [address] | | | | + + + + + + + + | Specimen | + + | Blood | + + + + + + + | Performing | Address | City/State/Zipcode | Phone Number | | Organization | | | | + + + + + | [facility] | [address] | [place] [address] | [phone] | + + + + + CBC [...] [facility] | | | | performed at [facility], [address] | | LABORATORY | | | | [facility], | | | | | | [place] [address] | | | | + + + + + + + + | Specimen | + + | Blood | + + + + + + + | Performing | Address | City/State/Zipcode | Phone Number | | Organization | | | | + + + + + | [facility] | [address] | [place] [address] | [phone] | + + + + + Basic [...] 7 (L)Comment: GFR <60: | >60 | [facility] | | | GFR | CHRONIC [...] | | | | | | MDRD IDSC traceable | | | | | | equation.Testing | | | | | | performed at [facility], [address] | | | | | | [facility], | | | | | | [place] [address] | | | | + + + + + + + + | Specimen | + + | Blood | + + + + + + + | Performing | Address | City/State/Zipcode | Phone Number | | Organization | | | | + + + + + | [facility] | [address] | [place] [address] | [phone] | + + + + + Basic [...] 9 (L)Comment: GFR <60: | >60 | [facility] | | | GFR | CHRONIC [...] performed at [facility] | | | | | | [facility];[place], [place] | | | | | | [address] | | | | + + + + + + + + | Specimen | + + | Blood | + + + + + + + | Performing | Address | City/State/Zipcode | Phone Number | | Organization | | | | + + + + + | [facility] | [address] | [place] [address] | [phone] | + + + + + Influenza [...] [place];[address];[place], [place] | | | | | | [address] | | | | + + + + + + + + | Specimen | + + | | + + + + + + + | Performing | Address | City/State/Zipcode | Phone Number | | Organization | | | | + + + + + | [facility] | [address] | [place] [address] | [phone] | + + + + + FLU SWAB COLLECTION (12/11/2018 15:46 PDT) + + + + + + | Component | Value | Ref Range | Performed | Pathologist | | | | | At | Signature | + + + + + + | Collection | SPECIMEN RECEIVED IN | | [facility] | | | | LABComment: Testing | | LABORATORY | | | | performed at [facility];[address] | | | | | | [address];[place] | | | | | | [address] | | | | + + + + + + + + | Specimen | + + | Tissue | + + + + + + + | Performing | Address | City/State/Zipcode | Phone Number | | Organization | | | | + + + + + | [facility] | [address] | [place] [address] | [phone] | + + + + + POC [...] | LABORATORY | | | | [address];[place], [place] | | | | | | [address] | | | | + + + + + + + + | Specimen | + + | | + + + + + + + | Performing | Address | City/State/Zipcode | Phone Number | | Organization | | | | + + + + + | [facility] | [address] | [place] [address] | [phone] | + + + + + ECG [...] (500), | | | | | | online [...] [facility] | | | | performed at [facility];[address] | | LABORATORY | | | | [address];[place] | | | | | | [address] | | | | + + + + + + + + | Specimen | + + | Blood | + + + + + + + | Performing | Address | City/State/Zipcode | Phone Number | | Organization | | | | + + + + + | [facility] | [address] | [place] [address] | [phone] | + + + + + Basic [...] LABORATORY | | | | M ON [id number] 2 0741 BY | | | | [...] [place];[address] | | | | | | [facility];[place], [place] | | | | | | [address] | | | | + + + + + + + + | Specimen | + + | Blood | + + + + + + + | Performing | Address | City/State/Zipcode | Phone Number | | Organization | | | | + + + + + | [facility] | [address] | [place] [address] | [phone] | + + + + + Culture, [...] Special | Testing performed at | | [facility] | | | Requests | [facility];[address] | | LABORATORY | | | | [address];[place] [address] | | | | + + + + + + | RESULT | NO GROWTH 6 DAYS | | [facility] | | | | | | LABORATORY | | + + + + + + | RESULT | Testing performed at | | [facility] | | | | [facility], [address] [facility] | | LABORATORY | | | | [place] | | | | | | [address]Eeloylj: Testing | | | | | | performed at [facility], [address] | | | | | | [place] | | | | | | [address] | | | | + + + + + + + + | Specimen | + + | Blood | + + + + + + + | Performing | Address | City/State/Zipcode | Phone Number | | Organization | | | | + + + + + | [facility] | [address] | [place] [address] | [phone] | + + + + + CT [...] LABORATORY | | | | performed at [facility];[address] | [address];[place] | | | | | | [address] | | | | + + + + + + + + | Specimen | + + | | + + + + + + + | Performing | Address | City/State/Zipcode | Phone Number | | Organization | | | | + + + + + | [facility] | [address] | [place] [address] | [phone] | + + + + + Lactic Acid (12/11/2018 1:04 PDT) + + + + + + | Component | Value | Ref Range | Performed | Pathologist | | | | | At | Signature | + + + + + + | Lactate, | 1.2Comment: Testing | 0.4 - 2.0 | [facility] | | | Serum | performed at [facility];[address] | mmol/L | LABORATORY | | | | [address];[place] | | | | | | [address] | | | | + + + + + + + + | Specimen | + + | Blood | + + + + + + + | Performing | Address | City/State/Zipcode | Phone Number | | Organization | | | | + + + + + | [facility] | [address] | [place] [address] | [phone] | + + + + + Lactic Acid (12/10/2018 23:44 PDT) + + + + + + | Component | Value | Ref Range | Performed | Pathologist | | | | | At | Signature | + + + + + + | Lactate, | 0.8Comment: Testing | 0.4 - 2.0 | [facility] | | | Serum | performed at [facility];[address] | mmol/L | LABORATORY | | | | [address];[place], [place] | | | | | | [address] | | | | + + + + + + + + | Specimen | + + | Blood | + + + + + + + | Performing | Address | City/State/Zipcode | Phone Number | | Organization | | | | + + + + + | [facility] | [address] | [place] [address] | [phone] | + + + + + Culture, [...] LABORATORY | | | | BY:Brigitte CARTER [facility] @ 1855 | | | | | [...] RESULT | Testing performed at | | [facility] | | | | [facility], [address] [facility] | | LABORATORY | | | | [place], [place] | | | | | | [address]Jpqtexb: Testing | | | | | | performed at [facility], [address] | | | | | | [facility], | | | | | | [place] [address] | | | | + + + + + + + + | Specimen | + + | Blood | + + + + + + + | Performing | Address | City/State/Zipcode | Phone Number | | Organization | | | | + + + + + | [facility] | [address] | [place] [address] | [phone] | + + + + + XR [...] | | [facility];[address] [facility] | | | | | | [facility];[place] [address] | | | | + + + + + + + + | Specimen | + + | Blood | + + + + + + + | Performing | Address | City/State/Zipcode | Phone Number | | Organization | | | | + + + + + | [facility] | [address] | [place] [address] | [phone] | + + + + + Protime [...] [place];[address] | | | | | | [address];[place], [place] | | | | | | [address] | | | | + + + + + + + + | Specimen | + + | Blood | + + + + + + + | Performing | Address | City/State/Zipcode | Phone Number | | Organization | | | | + + + + + | [facility] | [address] | [place] [address] | [phone] | + + + + + CBC [...] | at [facility];[address];[place] [address] | | | | | |NORMAL PLT MORPH | | | | | |Testing performed at [facility];[address];[place] [address] | | | | | | | | | | + + + + + + + + | Specimen | + + | Blood | + + + + + + + | Performing | Address | City/State/Zipcode | Phone Number | | Organization | | | | + + + + + | [facility] | [address] | [place] [address] | [phone] | + + + + + Phosphorus (12/10/2018 23:02 PDT) + + + + + + | Component | Value | Ref Range | Performed | Pathologist | | | | | At | Signature | + + + + + + | Phosphorus | 8.9 (H)Comment: Testing | 2.3 - 4.8 mg/dL | [facility] | | | | performed at [facility];8 | | LABORATORY | | | | [address];[place] | | | | | | [address] | | | | + + + + + + + + | Specimen | + + | Blood | + + + + + + + | Performing | Address | City/State/Zipcode | Phone Number | | Organization | | | | + + + + + | [facility] | [address] | [place] [address] | [phone] | + + + + + Magnesium (12/10/2018 23:02 PDT) + + + + + + | Component | Value | Ref Range | Performed | Pathologist | | | | | At | Signature | + + + + + + | Magnesium | 2.2Comment: Testing | 1.7 - 2.4 mg/dL | [facility] | | | | performed at [facility];[address] | | LABORATORY | | | | [address];[place], [place] | | | | | | [address] | | | | + + + + + + + + | Specimen | + + | Blood | + + + + + + + | Performing | Address | City/State/Zipcode | Phone Number | | Organization | | | | + + + + + | [facility] | [address] | [place] [address] | [phone] | + + + + + Comprehensive [...] 22 | 10 - 65 U/L | [facility] | | | | | | LABORATORY | | + + + + + + | Estimated | 3 (L)Comment: GFR <60: | >60 | [facility] | | | GFR | CHRONIC [...] [place];[address] | | | | | | [facility];[place], [place] | | | | | | [address] | | | | + + + + + + + + | Specimen | + + | Blood | + + + + + + + | Performing | Address | City/State/Zipcode | Phone Number | | Organization | | | | + + + + + | [facility] | [address] | [place] [address] | [phone] | + + + + + ECG [...] | | | | | ONLY, -COMPUTER (603), | | | | | | online [...] | | | | Intravenous, ONCE, [facility] 12/13/18 | | PDT | | | [...] - PRN, Hypotension, | | | Starting [facility] 12/11/18 at 0937, | | | Treatment [...] - PRN, Hypotension, | | | Starting [facility] 12/12/18 at 0734, | | | [...]
--- OUTSIDE RECORDS SUMMARY | ~2019-01-02 | XMS | Encounter Summary ---
Demographics + + + | Address | [address] | | | [place] [address] | + + + | Home Phone [...] | | | | | [place] [address] | | + + + + + | Thania Mallory | ECON | [address] | | | | | [place] [address] | | + + + + + | Deidra Weldon | ECON | [address] | | | | | [place] | | | | | [address] | | + + + + + Care Team Providers + +------+ + | Care Coat Joiner Lockstitch Name | Role | Phone | + [...] Alexander | | | | | | [place], [place] | | | | | | [address] | | | | | | [phone] | | | +--------+ + + + [...] Denise | | | | | | [place], [place] | | | | | | [address] | | | | | | [phone] | | | | | | | [...] | e | 9:27 AM | MEDICARE 5520 | procedure are in the | | [...]
--- OUTSIDE RECORDS SUMMARY | ~2019-01-02 | XMS | Encounter Summary ---
Demographics + + + | Address | [address] | | | [place] [address] | + + + | Home Phone [...] | Author | [facility] | | | and Josephana | + + + | Organization | [facility] | [...] Providers + +------+ + | Care Blue Line Trimmer Name | Role | Phone | + +------+ + | Jonathan Alonso MD | PCP | | + +------+ + Encounter Details +--------+ + + + + | Date | Type | Department | Care Team | Description | +--------+ + + + + | 10/08/ | Orders Only | [facility] | Provider, | Systolic congestive | | 2019 | | SYSTEM GENERIC OP | MD [address] | heart failure (HCC) | | | | CONVERSION [address] | [place]. | | | | | [address] [place], [place] | [place] [address] | | | | | [address] | | | | | | [phone] | | | +--------+ + + + [...] [address]SON | | | | | | [place] [address] | | | | | | [phone] | | | | | | | [...]
--- OUTSIDE RECORDS SUMMARY | ~2019-01-02 | XMS | Encounter Summary ---
Demographics + + + | Address | [address] | | | [place] [address] | + + + | Home Phone [...] | | | | | [place] [address] | | + + + + + | Deidra Weldon | ECON | [address] | | | | | [place] | | | | | [address] | | + + + + + Care Team Providers + +------+ + | Care Manager People Name | Role | Phone | + [...] | Update | | | | [facility] | [facility] | | | | | Rd [place], [place] | [place], [place] | | | | | [address] | [address] | | | | | [phone] | | | +--------+ + + + [...] [facility] | | | | | | [address] | | | | | | [phone] | | | | | | | | +--------+ + + + + documented as of this encounter Visit Diagnoses Not on filedocumented in this encounter"
--- OUTSIDE RECORDS SUMMARY | ~2019-01-02 | XMS | Encounter Summary ---
Demographics + + + | Address | [address] | | | [place] [address] | + + + | Home Phone [...] | | | | | [place] [address] | | + + + + + | Thania Mallory | ECON | [address] | | | | | [place] [address] | | + + + + + | Deidra Weldon | ECON | [address] | | | | | [place] | | | | | [address] | | + + + + + Care Team Providers + +------+ + | Care Plastic Design Applier Name | Role | Phone | [...] | | | | | ANNALISA Hoffmann [facility] | [facility] | | | | | Rd [place], [place] | [place], [place] | | | | | [address] | [address] | | | | | [phone] | | | +--------+ + + + [...] | | | | | | [place] | | | | | | [address] | | | | | | [phone] | | | | | | | | +--------+ + + + + documented as of this encounter Visit Diagnoses Not on filedocumented in this encounter"
--- OUTSIDE RECORDS SUMMARY | ~2019-01-02 | XMS | Encounter Summary ---
Demographics + + + | Address | [address] | | | [place] [address] | + + + | Home Phone [...] | | | | | [place] [address] | | + + + + + | Thania Mallory | ECON | [address] | | | | | [place] [address] | | + + + + + | Deidra Weldon | ECON | [address] | | | | | [place] | | | | | [address] | | + + + + + Care Team Providers + +------+ + | Care Computer Analyst Name | Role | Phone | [...] Denise | | | | | | [place], [place] | | | | | | [address] | | | | | | [phone] | | | | | | | | +--------+ + + + + documented as of this encounter Visit Diagnoses Not on filedocumented in this encounter"
--- OUTSIDE RECORDS SUMMARY | ~2019-01-02 | XMS | Encounter Summary ---
Demographics + + + | Address | [address] | | | [place] [address] | + + + | Home Phone [...] | | | | | [place] [address] | | + + + + + | Thania Mallory | ECON | [address] | | | | | [place] [address] | | + + + + + | Deidra Weldon | ECON | [address] | | | | | [place] | | | | | [address] | | + + + + + Care Team Providers + +------+ + | Care Fish Bait Picker Name | Role | Phone | [...] | | | | Dea Jane | [place], [place] | | | | | [place], [place] | [address] | | | | | [address] | | | | | | [phone] | | | +--------+ + + + [...] Denise | | | | | | [place] | | | | | | [address] | | | | | | [phone] | | | | | | | | +--------+ + + + + documented as of this encounter Visit Diagnoses Not on filedocumented in this encounter"
--- OUTSIDE RECORDS SUMMARY | ~2019-01-02 | XMS | Encounter Summary ---
Demographics + + + | Address | [address] | | | [place] [address] | + + + | Home Phone [...] | | | | | [place] [address] | | + + + + + | Thania Mallory | ECON | [address] | | | | | [place] [address] | | + + + + + | Deidra Weldon | ECON | [address] | | | | | [place] | | | | | [address] | | + + + + + Care Team Providers + +------+ + | Care Funeral Home Assistant Name | Role | Phone | [...] Rd | | | | | | [place], [place] | | | | | | [address] | | | +--------+ + + + [...] Denise | | | | | | [place], [place] | | | | | | [address] | | | | | | [phone] | | | | | | | | +--------+ + + + + documented as of this encounter Visit Diagnoses [facility]"
--- OUTSIDE RECORDS SUMMARY | ~2019-01-02 | XMS | Encounter Summary ---
Demographics + + + | Address | [address] | | | [place] [address] | + + + | Home Phone [...] Author | [facility] | | | and Josephana | + + + | Organization | [facility] [...] Providers + +------+ + | Care Chief Psychologist Name | Role | Phone | [...] | | [address] | [address] | | | | | [place], [place] | [place], [place] | | | | | [address] | [address] | | | | | [phone] | | | +--------+--------+ + + + [...] | | | | | [place] [address] | | | | | | [phone] | | | | | | | | +--------+---------+ + + + documented as of this encounter Visit Diagnoses Not on filedocumented in this encounter"
--- OUTSIDE RECORDS SUMMARY | ~2019-01-02 | XMS | Encounter Summary ---
Demographics + + + | Address | [address] | | | [place] [address] | + + + | Home Phone [...] | | | | | [place] [address] | | + + + + + | Thania Mallory | ECON | [address] | | | | | [place] [address] | | + + + + + | Deidra Weldon | ECON | [address] | | | | | [place] | | | | | [address] | | + + + + + Care Team Providers + +------+ + | Care Jeep Driver Name | Role | Phone | [...] Hoffmann | | | | | ANNALISA [facility] | [facility] | | | | | Rd [place], [place] | [place], [place] | | | | | [address] | [address] | | | | | [phone] | | | +--------+ + + + [...] Denise | | | | | | [place] | | | | | | [address] | | | | | | [phone] | | | | | | | | +--------+ + + + + documented as of this encounter Visit Diagnoses Not on filedocumented in this encounter"
--- OUTSIDE RECORDS SUMMARY | ~2019-01-02 | XMS | Encounter Summary ---
Demographics + + + | Address | [address] | | | [place] [address] | + + + | Home Phone [...] | | | | | [place] [address] | | + + + + + | Thania Mallory | ECON | [address] | | | | | [place] [address] | | + + + + + | Deidra Weldon | ECON | [address] | | | | | [place] | | | | | [address] | | + + + + + Care Team Providers + +------+ + | Care Shagger Name | Role | Phone | + [...] | | Nephrology at | MD Emanuel [address] | | | | | [place] | [address] | | | | | [facility] | [place], [place] | | | | | [address] | [address] | | | | | Caro [place] Mailcode: | [phone] | | | | | [address] | | | | | | [place], [place] | | | | | | [address] | | | | | | [phone] | | | +--------+ + + + [...] Denise | | | | | | [place], [place] | | | | | | [address] | | | | | | [phone] | | | | | | | [...] [address] | [place] [address] | [phone] | | HOSPITAL | | | | [...] | [address] | [place] [address] | [phone] | | HOSPITAL | | | | + + + + + documented in this encounter Visit Diagnoses Not on filedocumented in this encounter"
--- OUTSIDE RECORDS SUMMARY | ~2019-01-02 | XMS | Encounter Summary ---
Demographics + + + | Address | [address] | | | [place] [address] | + + + | Home Phone [...] | | | | | [place] [address] | | + + + + + | Thania Mallory | ECON | [address] | | | | | [place] [address] | | + + + + + | Deidra Weldon | ECON | [address] | | | | | [place] | | | | | [address] | | + + + + + Care Team Providers + +------+ + | Care Pressure Supervisor Name | Role | Phone | [...] Coordinators [address] | RN [address] [facility] | | | | | ANNALISA [facility] | [facility] | | | | | Rd [place], [place] | [place], [place] | | | | | [address] | [address] | | | | | [phone] | | | +--------+ + + + [...] Denise | | | | | | [place], [place] | | | | | | [address] | | | | | | [phone] | | | | | | | | +--------+ + + + + documented as of this encounter Visit Diagnoses Not on filedocumented in this encounter"
--- OUTSIDE RECORDS SUMMARY | ~2019-01-02 | XMS | Encounter Summary ---
Demographics + + + | Address | [address] | | | [place] [address] | + + + | Home Phone [...] | | | | | [place] [address] | | + + + + + | Thania Mallory | ECON | [address] | | | | | [place] [address] | | + + + + + | Deidra Weldon | ECON | [address] | | | | | [place] | | | | | [address] | | + + + + + Care Team Providers + +------+ + | Care Welding Tester Name | Role | Phone | [...] | Update | | | | ANNALISA [facility] | [facility] | | | | | Rd [place], [place] | [place], [place] | | | | | [address] | [address] | | | | | [phone] | | | +--------+ + + + [...] Denise | | | | | | [place], [place] | | | | | | [address] | | | | | | [phone] | | | | | | | | +--------+ + + + + documented as of this encounter Visit Diagnoses Not on filedocumented in this encounter"
--- OUTSIDE RECORDS SUMMARY | ~2019-01-02 | XMS | Encounter Summary ---
Demographics + + + | Address | [address] | | | [place] [address] | + + + | Home Phone [...] | | | | | [place] [address] | | + + + + + | Thania Mallory | ECON | [address] | | | | | [place] [address] | | + + + + + | Deidra Weldon | ECON | [address] | | | | | [place] | | | | | [address] | | + + + + + Care Team Providers + +------+ + | Care Range Management Specialist Name | Role | Phone | [...] | | Nephrology at | MD Emanuel [address] | | | | | [place] | [address] | | | | | [facility] | [place], [place] | | | | | [address] | [address] | | | | | Caro [place] Mailcode: | [phone] | | | | | [address] | | | | | | [place], [place] | | | | | | [address] | | | | | | [phone] | | | +--------+ + + + [...] Denise | | | | | | [place], [place] | | | | | | [address] | | | | | | [phone] | | | | | | | [...]
--- OUTSIDE RECORDS SUMMARY | ~2019-01-02 | XMS | Encounter Summary ---
Demographics + + + | Address | [address] | | | [place] [address] | + + + | Home Phone [...] Author | Merged With [facility] | | | and Josephana | + + + | Organization | Merged With [facility] [...] Team Providers + +------+ + | Care Conference Center Coordinator Name | Role | Phone | + +------+ + | Tien Nicholson MD | PCP | | + +------+ + Encounter Details +--------+ + + + + | Date | Type | Department | Care Team | Description | +--------+ + + + + | 10/17/ | Hospital | [facility] | Nikita, | SOB (shortness of | | 2019 - | Encounter | [facility] | MD Naresh [address] | breath); Pleural | | | | CARE FLOOR [address] | effusion on right; | | 10/20/ | | [address] | [place] [address] | ESRD needing | | 2019 | | [place], [place] | [phone] | dialysis ([facility]); End | | | | [address] | | stage renal disease | | | | [phone] | | ([facility]) | +--------+ + + + + [...] ([facility]ERLY [facility]) | protocol | | | | [...] + + +---------+ + + | B Mxivlvy-J-Ogwqb | Take 1 tablet by | | [...] 10/19/182357 Date of Service: 10/19/182357 Status: Signed Electrician: Vira Ford RN (Registered Nurse) No acute [...] 10/19/181827 Date of Service: 10/19/181826 Status: Signed Electrician: Trent Jovel RN (Registered Nurse) Dialysis completed today 2.4L removed. Remains on fluid restriction. Medicated for pain x 2. End of shift review complete. Trent Jovel RN onversio n Transaction, Provider Unknown - 10/19/2018 1536 PDTFormatting of this note might be differ ent from the original. Case Management by DORON Diallo at 10/19/18 1536 Author: DORON Diallo Service: (none) Author Type: Fitter Welder Filed: 10/19/18 1537 Date of Service: 10/19/18 1536 Status: Signed Electrician: DORON Diallo (Fitter Welder) Discharge planning: Return home when medically ready for discharge. Pt is receiving dialysi s on MWF. Pt is currently on 4L O2, pt may need a home O2 evaluation at discharge. ipul Pabon MD - 10/19/2018 1214 PDT Progress Notes by Antonio Pabon MD at 10/19/18 1214 Author: Antonio Pabon MD Service: Nephrology Author Type: Physician Filed: 10/25/18 2402 Date of Service: 10/19/18 1214 Status: Addendum Electrician: Antonio Pabon MD (Physician) Related Notes: Original Note by Antonio Pabon MD (Physician) filed at 10/25/18 2938 [facility] Service: NEPHROLOGY Progress Note Dara Weldon 23 y.o. [id number] female TIEN NICHOLSON 23-year-old female with [...] AV FISTULA; Surgeon: Rik Simon MD; Location: [facility] OR; Service: Vascula r; Laterality: Left; cephalic AV FISTULA REPAIR Left 03/07/2014 Procedure: AV FISTULA - GRAFT REPAIR/REVISION; Surgeon: Rik Simon MD; Location: [facility] OR; Service: Vascular; Laterality: Left; DECLOT GRAFT Left 03/07/2014 Procedure: GRAFT - DECLOT; Surgeon: Rik Simon MD; Location: [facility]; Service: Vas cular; Laterality: Left; DIALYSIS FISTULA CREATION N/A 04/08/2014 Procedure: DIALYSIS CATHETER - INSERTION; Surgeon: Rik Simon MD; Location: [facility] ; Service: Vascular; Laterality: N/A; tunneled catheter LAPAROSCOPIC PERITONEAL DIALYSIS CATHETER INSERTION x2 LAPAROSCOPIC PERITONEAL DIALYSIS CATHETER INSERTION Right 07/2013 current dialysis access MWF dialysis RENAL BIOPSY Left 2003 SUPERFICIALIZATION OF AV FISTULA Left 06/24/2014 Procedure: AV FISTULA - SUPERFICIALIZATION; Surgeon: Rik Simon MD; Location: [facility]; Service: Vascular; Laterality: [...] ral space is punctured with an 5 [place] Vinspi centesis catheter. Fluid is aspirated without complication. [...] 1 VIEW (10/17/2018); CHEST TWO V IEWS 65367 (10/17/2018); FINDINGS: Compared to the prior examination [...] MR, severe TR.severe pulmonary hypertens ion Chest n-dsk-zphlcumgqhxx with pulmonary edema and large right pleural [...] earlier and charting completed later Dictation software, [employer], used which may contain error for similar sounding words even af ter review. Personal communication requested for any clarification. inci, MD Gerber - 48 PDT Progress Notes by Gerber Pearson MD at 10/19/1848 Author: Gerber Pearson MD Service: Hospitalist Author Type: Physician Filed: 10/19/18 0753 Date of Service: 10/19/1848 Status: Signed Electrician: Gerber Pearson MD (Physician) [facility] [...] with dyspnea Patient was recently discharged from [facility] on 08/23/2018. For full note, please see discha rge summary from hospitalist. In summary, the patient was admitted for noncardiogenic pulmo nary edema after thoracentesis. At that point, prior to admission, she was seen at the [facility] department at [facility] in [place] on 08/21 where she underwent right th [...] BUN 90 on admission -History of a Westview Schnlein purpura -Last hemodialysis approximately 2 weeks [...] 10/19/18733 Date of Service: 10/19/18733 Status: Signed Electrician: Vira Ford RN (Registered Nurse) No acute [...] Author: DORON Diallo Service: (none) Author Type: Fitter Welder Filed: 10/18/181706 Date of Service: 10/18/181700 Status: Signed Electrician: DORON Diallo (Fitter Welder) Discharge planning: Return home when medically ready for discharge. Fr gela Fernandez MD - 10/18/201846 PDTFormatting of this note might be different from the origina l. Progress Notes by Gerber Pearson MD at 10/18/18745 Author: Gerber Pearson MD Service: Hospitalist Author Type: Physician Filed: 10/18/18 075 Date of Service: 10/18/18745 Status: Signed Electrician: Gerber Pearson MD (Physician) [facility] [...] with dyspnea Patient was recently discharged from [facility] on 08/23/2018. For full note, please see discha rge summary from hospitalist. In summary, the patient was admitted for noncardiogenic pulmo nary edema after thoracentesis. At that point, prior to admission, she was seen at the [facility] gency department at [facility] in [place] on 08/21 where she underwent right th [...] BUN 90 on admission -History of a [place] Schnlein purpura -Last hemodialysis approximately 2 weeks [...] Notes by Antonio Pabon MD at 10/18/18 0796 Author: Antonio Pabon MD Service: Nephrology Author Type: Physician Filed: 10/25/182002 Date of Service: 10/18/18744 Status: Signed Electrician: Antonio Pabon MD (Physician) [facility] Service: NEPHROLOGY Progress Note Dara Weldon 23 y.o. [id number]/[id number] female [facility] Day: LOS: 1 day 23-year-old [...] AV FISTULA; Surgeon: Rik Simon MD; Location: [facility]; Service: Vascula r; Laterality: Left; cephalic AV FISTULA REPAIR Left 03/07/2014 Procedure: AV FISTULA - GRAFT REPAIR/REVISION; Surgeon: Rik Simon MD; Location: [facility] IN OR; Service: Vascular; Laterality: Left; DECLOT GRAFT Left 03/07/2014 Procedure: GRAFT - DECLOT; Surgeon: Rik Simon MD; Location: [facility] OR; Service: Vas cular; Laterality: Left; DIALYSIS FISTULA CREATION N/A 04/08/2014 Procedure: DIALYSIS CATHETER - INSERTION; Surgeon: Rik Simon MD; Location: [facility] OR ; Service: Vascular; Laterality: N/A; tunneled catheter LAPAROSCOPIC PERITONEAL DIALYSIS CATHETER INSERTION x2 LAPAROSCOPIC PERITONEAL DIALYSIS CATHETER INSERTION Right 07/2013 current dialysis access MWF dialysis RENAL BIOPSY Left 2003 SUPERFICIALIZATION OF AV FISTULA Left 06/24/2014 Procedure: AV FISTULA - SUPERFICIALIZATION; Surgeon: Rik Simon MD; Location: [facility] OR; Service: Vascular; Laterality: Left; Prescriptions Prior [...] QTC Calculation (Bezet) 469 ms Calculated P Owe[place] 46 degrees Calculated R [place]we[place] 127 degrees Calculated T Owe[place] 94 degrees Diagnosis Normal sinus rhythm Right [...] MR, severe TR.severe pulmonary hypertens ion Chest e-hpm-gqqbuhhwsrrd with pulmonary edema and large right pleural [...] earlier and charting completed later Dictation software, [employer], used which may contain error for [...] 10/18/1853 Date of Service: 10/18/18650 Status: Signed Electrician: Ronnie Vargas RN (Registered Nurse) Pt alert and oriented X 4. PRN pain med given for back pain. No other acute changes durin g shift. Chart check complete onversio n Transaction, Provider Unknown - 10/17/2018 0948 PDTFormatting of this note might be differ ent from the original. Case Management by DORON Diallo at 10/17/1848 Author: DORON Diallo Service: (none) Author Type: Fitter Welder Filed: 10/17/1865 Date of Service: 10/17/18947 Status: Signed Electrician: DORON Diallo (Fitter Welder) 10/17/18 0900 Discharge Planning Evaluation Admitting Diagnosis (SOB) Readmission Other (comment) (Last admit 08/20/18) Living Arrangements Alone Support Systems Family members;Friends/neighbors Type of Residence Private residence House type Apartment Independent with ADL's Yes Independent with Mobility Yes Home Care Services No Caregiver after Discharge No Mental Status Oriented Prior functional status (Independent) Power of Acetylene Cutter No Resources Financial concerns No Transportation issues No Patient/Family concerns No Prescription Plan Yes Name of Pharmacy ([facility] in [place]) Previous home health equipment No Anticipated Disposition Facility Type Home FRONT DESK CLERK CM met with pt and discussed discharge planning. Pt is a 23 y.o., female admitted for s hortness of breath. Pt resides alone in an apartment at [address] [place] [address]. Pt reported that she has neighbor and friend support. Pt's mother, Thania cheung can be reached at and sister, Saundra can be reached at . Pt reported being independent with ADL's,, IADL's and mobility prior to this admission. Pt denied previous outpatient OT/PT services, home care services and home O2 prior to this admission. Pt reported that she received dialysis [facility] on MWF prior to this admission . [...] 10/17/18743 Date of Service: 10/17/18743 Status: Signed Electrician: Camilla Moody RPH (Pharmacist) Clinical Pharmacy Note: [...] 10/17/18746 Date of Service: 10/17/18716 Status: Signed Electrician: Gerber Pearson MD (Physician) [facility] [...] with dyspnea Patient was recently discharged from [facility] on 08/23/2018. For full note, please see ketan agudelo summary from hospitalist. In summary, the patient was admitted for noncardiogenic pulmo nary edema after thoracentesis. At that point, prior to admission, she was seen at the [facility] gency department at [facility] in [place] on 08/21 where she underwent right th [...] the case over the phone with patient's bottle inspector Dr. Mahmood, recommends medi oly management and [...] creatinine 14, BUN 90 -History of a [place]view Schnlein purpura -Last hemodialysis approximately 2 weeks [...] [address] | | | | | | [place] [address] | | | | | | [phone] | | | | | | | [...] [address], | | | | | | [place] [address] | | | | + + + [...] CHEST 1 VIEW (10/17/2018); CHEST TWO VIEWS 05042 | | | (10/17/2018); FINDINGS: Compared to [...] VIEW | | (10/17/2018); CHEST TWO VIEWS 23090 (10/17/2018); | | FINDINGS: | | Compared [...] pleural space is punctured with an 5 [place] Yueh centesis | | | catheter. Fluid [...] pleural space is punctured with an 5 [place] Yueh | | centesis catheter. Fluid is [...] | | | | | at [facility], [address] | | | | | | [address], | | | | | | [place] [address] | | | | | |Testing performed at [facility], [address] [place] [address] | | | | | | | [...] [facility], [address] | | LAB | | | | [address], | | | | | | [place] [address] | | | | + + + [...] W | | | | | | [facility] | | | | | | [place] [address] | | | | + + + [...] | | | [facility];[address] [place] [address] | | | | | | [facility];[place] [address] | | | | + + + [...] [place] | | | | | | [address] | | | | + + + [...] | | | [facility];[address] [place] [address] | | | | | | [facility];[place] [address] | | | | + + + [...] | LAB | | | | [address];[place] | | | | | | [address] | | | | + + + [...] | | | | | | [address];[place], [place] | | | | | | [address] | | | | + + + [...] | | | [facility];[address] [place] [address] | | | | | | Blvd;[place] [address] | | | | + + + [...] | | [facility];[address] [facility] | | | | | | [facility];[place] [address] | | | | + + + [...] | | LAB | | | | [facility];[address] [place] [address] | | | | | | [place] [address] | | | | + + + [...]
--- OUTSIDE RECORDS SUMMARY | ~2019-01-02 | XMS | Encounter Summary ---
Demographics + + + | Address | [address] | | | [place] [address] | + + + | Home Phone [...] | | | | | [place] [address] | | + + + + + | Thania Mallory | ECON | [address] | | | | | [place] [address] | | + + + + + | Deidra Weldon | ECON | [address] | | | | | [place] | | | | | [address] | | + + + + + [...] | | | ANNAL[facility] | [facility] | | | | | Rd [place], [place] | [place], [place] | | | | | [address] | [address] | | | | | [phone] | | | +--------+ + + + [...] Denise | | | | | | [place], [place] | | | | | | [address] | | | | | | [phone] | | | | | | | | +--------+ + + + + documented as of this encounter Visit Diagnoses + + | Diagnosis | + + | 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
--- OUTSIDE RECORDS SUMMARY | ~2019-01-02 | XMS | Encounter Summary ---
Demographics + + + | Address | [address] | | | [place] [address] | + + + | Home Phone [...] | | | | | [place] [address] | | + + + + + | Thania Mallory | ECON | [address] | | | | | [place] [address] | | + + + + + | Deidra Weldon | ECON | [address] | | | | | [place] | | | | | [address] | | + + + + + Care Team Providers + +------+ + | Care General Labor Forklift Operator Name | Role | Phone | [...] | | | Caro Chan Mailcode: | [facility] [place] | | | | | [address] | [address] | | | | | [address] | [phone] | | | | | [place], [place] | | | | | | [address] | | | | | | [phone] | | | +--------+ + + + [...] Denise | | | | | | [place], [place] | | | | | | [address] | | | | | | [phone] | | | | | | | | +--------+ + + + + documented as of this encounter Visit Diagnoses Not on filedocumented in this encounter"
--- OUTSIDE RECORDS SUMMARY | ~2019-01-02 | XMS | Encounter Summary ---
Demographics + + + | Address | [address] | | | [place] [address] | + + + | Home Phone [...] | | | | | [place] [address] | | + + + + + | Thania Mallory | ECON | [address] | | | | | [place] [address] | | + + + + + | Deidra Weldon | ECON | [address] | | | | | [place] | | | | | [address] | | + + + + + Care Team Providers + +------+ + | Care Associate Biological Sales Name | Role | Phone | [...] date) | | | | ANNALISA [facility] | [facility] | | | | | Rd [place], [place] | [place], [place] | | | | | [address] | [address] | | | | | [phone] | | | +--------+ + + + [...] Denise | | | | | | [place], [place] | | | | | | [address] | | | | | | [phone] | | | | | | | | +--------+ + + + + documented as of this encounter Visit Diagnoses Not on filedocumented in this encounter"
--- OUTSIDE RECORDS SUMMARY | ~2019-01-02 | XMS | Encounter Summary ---
Demographics + + + | Address | [address] | | | [place] [address] | + + + | Home Phone [...] | | | | | [place] [address] | | + + + + + | Thania Mallory | ECON | [address] | | | | | [place] [address] | | + + + + + | Deidra Weldon | ECON | [address] | | | | | [place] | | | | | [address] | | + + + + + Care Team Providers + +------+ + | Care Behavioral Instructor Name | Role | Phone | [...] | | Nephrology at | MD Emanuel [address] | | | | | [place] | [address] | | | | | [facility] | [place], [place] | | | | | [address] | [address] | | | | | Caro Chan Mailcode: | [phone] | | | | | [address] | | | | | | [place], [place] | | | | | | [address] | | | | | | [phone] | | | +--------+ + + + [...] Denise | | | | | | [place], [place] | | | | | | [address] | | | | | | [phone] | | | | | | | | +--------+ + + + + documented as of this encounter Visit Diagnoses Not on filedocumented in this encounter"
--- OUTSIDE RECORDS SUMMARY | ~2019-01-02 | XMS | Encounter Summary ---
Demographics + + + | Address | [address] | | | [place] [address] | + + + | Home Phone [...] | | | | | [place] [address] | | + + + + + | Thania Mallory | ECON | [address] | | | | | [place] [address] | | + + + + + | Deidra Weldon | ECON | [address] | | | | | [place] | | | | | [address] | | + + + + + Care Team Providers + +------+ + | Care Glass Cutter Helper Name | Role | Phone | [...] | list) | | | | [facility] | [facility] | | | | | Rd [place], [place] | [place], [place] | | | | | [address] | [address] | | | | | [phone] | | | +--------+ + + + [...] Denise | | | | | | [place], [place] | | | | | | [address] | | | | | | [phone] | | | | | | | | +--------+ + + + + documented as of this encounter Visit Diagnoses Not on filedocumented in this encounter"
--- OUTSIDE RECORDS SUMMARY | ~2019-01-02 | XMS | Encounter Summary ---
Demographics + + + | Address | [address] | | | [place] [address] | + + + | Home Phone [...] | | | | | [place] [address] | | + + + + + | Thania Mallory | ECON | [address] | | | | | [place] [address] | | + + + + + | Deidra Weldon | ECON | [address] | | | | | [place] | | | | | [address] | | + + + + + Care Team Providers + +------+ + | Care Intelligence Chief Name | Role | Phone | [...] | | [facility] | [place], [place] | | | | | [address] | [address] | | | | | Caro Chan Mailcode: | [phone] | | | | | [address] | | | | | | [place], [place] | | | | | | [address] | | | | | | [phone] | | | +--------+ + + + [...] [facility] | | | | | | [address] | | | | | | [phone] | | | | | | | | +--------+ + + + + documented as of this encounter Visit Diagnoses Not on filedocumented in this encounter"
--- OUTSIDE RECORDS SUMMARY | ~2019-01-02 | XMS | Encounter Summary ---
Demographics + + + | Address | [address] | | | [place] [address] | + + + | Home Phone [...] | | | | | [place] [address] | | + + + + + | Thania Mallory | ECON | [address] | | | | | [place] [address] | | + + + + + | Deidra Weldon | ECON | [address] | | | | | [place] | | | | | [address] | | + + + + + Care Team Providers + +------+ + | Care Polymer Tester Name | Role | Phone | [...] | Update (Evaluation | | | | ANNLAISA Hoffmann [facility] | [facility] [address] | Scheduled) | | | | [place], [place] | [place], [place] | | | | | [address] | [address] | | | | | [phone] | [phone] | | | | | | | [...] Denise | | | | | | [place] | | | | | | [address] | | | | | | [phone] | | | | | | | | +--------+ + + + + documented as of this encounter Visit Diagnoses Not on filedocumented in this encounter"
--- OUTSIDE RECORDS SUMMARY | ~2019-01-02 | XMS | Encounter Summary ---
Demographics + + + | Address | [address] | | | [place] [address] | + + + | Home Phone [...] | | | | | [place] [address] | | + + + + + | Thania Mallory | ECON | [address] | | | | | [place] [address] | | + + + + + | Deidra Weldon | ECON | [address] | | | | | [place] | | | | | [address] | | + + + + + Care Team Providers + +------+ + | Care Linen Worker Name | Role | Phone | [...] | | | | [facility] | [place], [place] | | | | | [address] | [address] | | | | | Caro [place] Mailcode: | [phone] | | | | | [address] | | | | | | [place], [place] | | | | | | [address] | | | | | | [phone] | | | +--------+ + + + [...] Denise | | | | | | [place], [place] | | | | | | [address] | | | | | | [phone] | | | | | | | | +--------+ + + + + documented as of this encounter Visit Diagnoses Not on filedocumented in this encounter"
--- OUTSIDE RECORDS SUMMARY | ~2019-01-02 | XMS | Encounter Summary ---
Demographics + + + | Address | [address] | | | [place] [address] | + + + | Home Phone [...] | | | | | [place] [address] | | + + + + + | Thania Mallory | ECON | [address] | | | | | [place] [address] | | + + + + + | Deidra Weldon | ECON | [address] | | | | | [place] | | | | | [address] | | + + + + + Care Team Providers + +------+ + | Care Medical Historian Name | Role | Phone | [...] | | | | | ANNALISA [facility] | [facility] | | | | | Rd [place], [place] | [place], [place] | | | | | [address] | [address] | | | | | [phone] | | | +--------+ + + + [...] | | | | | | [place] | | | | | | [address] | | | | | | [phone] | | | | | | | | +--------+ + + + + documented as of this encounter Visit Diagnoses Not on filedocumented in this encounter"
--- OUTSIDE RECORDS SUMMARY | ~2019-01-02 | XMS | Encounter Summary ---
Demographics + + + | Address | [address] | | | [place] [address] | + + + | Home Phone [...] | [facility] | | | and [place] | + + + | Organization | [facility] | | [...] Providers + +------+ + | Care Director Specialty Name | Role | Phone | + [...] [place] | | | | | | [address] | | | | | | [phone] | | | +--------+ + + + [...] | | | | | [place] [address] | | | | | | [phone] | | | | | | | | +--------+---------+ + + + documented as of this encounter Visit Diagnoses Not on filedocumented in this encounter"
--- OUTSIDE RECORDS SUMMARY | ~2019-01-02 | XMS | Encounter Summary ---
Demographics + + + | Address | [address] | | | [place] [address] | + + + | Home Phone [...] | | | | | [place] [address] | | + + + + + | Thania Mallory | ECON | [address] | | | | | [place] [address] | | + + + + + | Deidra Weldon | ECON | [address] | | | | | [place] | | | | | [address] | | + + + + + Care Team Providers + +------+ + | Care Technical Solutions Engineer Name | Role | Phone | [...] Denise | | | | | | [place], [place] | | | | | | [address] | | | | | | [phone] | | | | | | | | +--------+ + + + + documented as of this encounter Visit Diagnoses Not on filedocumented in this encounter"
--- OUTSIDE RECORDS SUMMARY | ~2019-01-02 | XMS | Encounter Summary ---
Demographics + + + | Address | [address] | | | [place] [address] | + + + | Home Phone [...] | | | | | [place] [address] | | + + + + + | Thania Mallory | ECON | [address] | | | | | [place] [address] | | + + + + + | Deidra Weldon | ECON | [address] | | | | | [place] | | | | | [address] | | + + + + + Care Team Providers + +------+ + | Care Computer Technology Teacher Name | Role | Phone [...] | | Nephrology at | MD Emanuel [address] | | | | | [place] | [address] | | | | | [facility] | [place], [place] | | | | | [address] | [address] | | | | | Caro Chan Mailcode: | [phone] | | | | | [address] | | | | | | [place], [place] | | | | | | [address] | | | | | | [phone] | | | +--------+ + + + [...] Denise | | | | | | [place], [place] | | | | | | [address] | | | | | | [phone] | | | | | | | | +--------+ + + + + documented as of this encounter Visit Diagnoses Not on filedocumented in this encounter"
--- OUTSIDE RECORDS SUMMARY | ~2019-01-02 | XMS | Encounter Summary ---
Demographics + + + | Address | [address] | | | [place] [address] | + + + | Home Phone [...] | | | | | [place] [address] | | + + + + + | Thania Mallory | ECON | [address] | | | | | [place] [address] | | + + + + + | Deidra Weldon | ECON | [address] | | | | | [place] | | | | | [address] | | + + + + + Care Team Providers + +------+ + | Care [place] Teacher Name | Role | Phone | [...] Shun | | | | | [address] | [facility] | | | | | [place], [place] | [place] [address] | | | | | [address] | [phone] | | | | | | | [...] from patient and her family Pharmacy Preferences: [id number] [address] [place] [address] Updated Outpatient Medications: Current Medication List Name [...] questions regarding this information contact pharmacy, pager #[phone] Thank you, Juan David Batres Pager [phone] signed by Juan David Batres [facility] at [...] Denise | | | | | | [place] | | | | | | [address] | | | | | | [phone] | | | | | | | | +--------+ + + + + documented as of this encounter Visit Diagnoses Not on filedocumented in this encounter"
--- OUTSIDE RECORDS SUMMARY | ~2019-01-02 | XMS | Encounter Summary ---
Demographics + + + | Address | [address] | | | [place] [address] | + + + | Home Phone [...] | | | | | [place] [address] | | + + + + + | Thania Mallory | ECON | [address] | | | | | [place] [address] | | + + + + + | Deidra Weldon | ECON | [address] | | | | | [place] | | | | | [address] | | + + + + + Care Team Providers + +------+ + | Care Executive Officer Name | Role | Phone | [...] | | | | | [address]NAL[address] Hoff[address] [facility] | [facility] | | | | | Rd [place], [place] | [place], [place] | | | | | [address] | [address] | | | | | [phone] | | | +--------+ + + + [...] | | | | | | [place] | | | | | | [address] | | | | | | [phone] | | | | | | | | +--------+ + + + + documented as of this encounter Visit Diagnoses Not on filedocumented in this encounter"
--- OUTSIDE RECORDS SUMMARY | ~2019-01-02 | XMS | Encounter Summary ---
Demographics + + + | Address | [address] | | | [place] [address] | + + + | Home Phone [...] | Author | [facility] | | | and Josephana | + + + | Organization | [facility] | | [...] Team Providers + +------+ + | Care Dowel Pin Worker Name | Role | Phone | [...] | | [address] | [place] | | | | | [place], [place] | [place], [place] | | | | | [address] | [address] | | | | | [phone] | | | +--------+--------+ + + + [...] | | | | | [place] [address] | | | | | | [phone] | | | | | | | | +--------+---------+ + + + documented as of this encounter Visit Diagnoses Not on filedocumented in this encounter"
--- OUTSIDE RECORDS SUMMARY | ~2019-01-02 | XMS | Encounter Summary ---
Demographics + + + | Address | [address] | | | [place] [address] [...] [facility] [place] [facility] | | | and Josephana | + + + | Organization | [facility] [place] [facility] [...] + +------+ + | Care Director Of Database Marketing Name | Role | Phone | [...] + | 11/06/ | Hospital | [facility] | Johnathan Brooks, | Chronic right-sided | | 2019 - | Encounter | [facility] | MD Brooks TORRES | heart failure (HCC) | | | | CARE FLOOR [address] | [place] [address] | (Primary Dx); Acute | | 11/09/ | | [address] | [phone] | hypoxemic | | 2019 | | [place], [place] | | respiratory failure | | | | [address] | Darell Kowalski MD | (HCC); Chronic | | | | [phone] | [address]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 | | | | | [phone] | failure (HCC); | | | | | | 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 [facility] Service: Medicine DISCHARGE SUMMARY Primary Care [...] [facility]. In the ER patient was evaluated by [...] transferred with the patient's paper documentation from [facility] ER). Initial labs: WBC 6.5, [...] suggesting of edema. Taken from Dr. Brooks [facility] (11/06/2018) HOSPITAL COURSE Patient was admitted [...] Left; Surgeon: Blake Chavarria MD ; Location: [facility] MAIN OR AV FISTULA REPAIR Left 03/07/2014 Procedure: AV FISTULA - GRAFT REPAIR/REVISION; Surgeon: Rik Simon MD; Location: [facility] IN OR; Service: Vascular; Laterality: [...] - SUPERFICIALIZATION; Surgeon: Emanuel Simon MD; Location: [facility] MAIN OR; Service: Vascular; Laterality: Left; OTHER SURGICAL HISTORY Left 04/08/2014 AV FISTULA PLACEMENT - Procedure: AV FISTULA; Surgeon: Rik Simon MD; Location: [facility] E[facility] N OR; Service: Vascular; [...] Value Units Date/Time Culture, Body Fluid Sterile [[id number]] Collected: 11/07/18 1515 Order Status: Completed Lab Status: Preliminary result Updated: 11/09/18 141 Specimen: Body Fluid from Pleural Fluid, Right Special Requests RIGHT SIDE Special Requests Testing performed at [facility];[address] [place] [address] Gram Stain Result NO CELLS OR ORGANISMS SEEN RESULT NO GROWTH 2 DAYS RESULT Testing performed at [facility], [address] [place] [address] Comment: Testing performed at [facility], [address] [place] [address] Culture, Body Fluid Sterile [[id number]] Order Status: Canceled Lab Status: No result [...] DOMINGAVAN Follow Up: Jonathan Alonso MD [address] [facility] [place] [address] In 1 week René Anguiano MD [address] [facility] [address] [place] [address] In 1 week Discharge took 60 minutes, [...] her sister. DME equipment order sent to [facility]. She refused oxygen delivery to the hospi mary kate saying that she just wanted to go home. Orders state 1L for ambulating only.Electronical ly signed by Daniela Vyas RN at 11/09/2018 15:47 Anival Patten [employer] - 11/09/2018 124 5 PDT 11/09/18 1244 [...] UF. Hypervolemia has improved with HD/UF/thoracentesis. Acute PA has been ruled out. Recommendations: Plan for [...] for continuity of chart review/care. Dictation software, YouNoodle, was used which may contain error for [...] Medical Rich dent - 11/08/2018 1305 PDT [facility] Inpatient Progress Note Pt: Dara Louise AGE/SEX: [...] hypervolemic and has recurrent hyperkalemia/metabolic acidosis. Acute PA has been ruled out. Recommendations: Plan for [...] for continuity of chart review/care. Dictation software, YouNoodle, was used which may contain error for [...] valsartan 40 mg Oral Daily Yefri Andres [facility] dent - 11/07/2018 0725 PDT [facility] Inpatient Progress Note Pt: Dara Louise AGE/SEX: 23 y.o. ROOM: [facility]/8112-01 : 1995 PCP: Jonathan Alonso MD [...] and dyspnea. The patient was seen at [facility] ER and then transferred to [...] attestation - Darell Kowalski MD - 11/07/2018 5756 PDTAttending: Pt is seen and examined with [...] E | | | | | | [place] [address] | | | | | | [phone] | | | | | | | [...] + | Billie Gupta MD 11/09/2018 9:34 [facility] | | | [facility] Hemo-Dialysis Procedure note Pt is seen [...] | | . 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 [address] | | | Constitutional: pt appears [...] Testing | 2.3 - 4.8 mg/dL | [facility] | | | | performed at [facility], [address] | | LABORATORY | | | | [address], | | | | | | [place] [address] | | | | + + + + + + + + | Specimen | + + | Blood | + + + + + + + | Performing | Address | City/State/Zipcode | Phone Number | | Organization | | | | + + + + + | [facility] | [address] | [place] [address] | [phone] | + + + + + Comprehensive [...] | | | | | performed at [facility], [address] | | | | | | [facility], | | | | | | [place] [address] | | | | + + + + + + + + | Specimen | + + | Blood | + + + + + + + | Performing | Address | City/State/[facility] | Phone Number | | Organization | | | | + + + + + | [facility] | [address] | [place] [address] | [phone] | + + + + + CBC [...] LABORATORY | | | | performed at [facility], [address] | | | | | | [address], | | | | | | [place] [address] | | | | | | | | | | + + + + + + + + | Specimen | + + | Blood | + + + + + + + | Performing | Address | City/State/Zipcode | Phone Number | | Organization | | | | + + + + + | [facility] | [address] | [place] [address] | [phone] | + + + + + Protime INR (11/09/2018 4:14 PDT) + + + + + + | Component | Value | Ref Range | Performed | Pathologist | | | | | At | Signature | + + + + + + | INR | 1.3Comment: REFERENCE | | [facility] | | | | RANGE:0.9 [...] [place];[address] | | | | | | [facility];[place], [place] | | | | | | [address] | | | | + + + + + + + + | Specimen | + + | Blood | + + + + + + + | Performing | Address | City/State/Zipcode | Phone Number | | Organization | | | | + + + + + | [facility] | [address] | [place] [address] | [phone] | + + + + + Comprehensive [...] | | | | | performed at [facility], [address] | | | | | | [facility], | | | | | | [place] [address] | | | | + + + + + + + + | Specimen | + + | Blood | + + + + + + + | Performing | Address | City/State/Zipcode | Phone Number | | Organization | | | | + + + + + | [facility] | [address] | [place] [address] | [phone] | + + + + + CBC [...] | | | | | | at [facility], [address] | | | | | | [facility], | | | | | | [place] [address] | | | | | |Testing performed at [facility], [address] [place] [address] | | | | | | | | | | + + +--- + + + + + | Specimen | + + | Blood | + + + + + + + | Performing | Address | City/State/Zipcode | Phone Number | | Organization | | | | + + + + + | [facility] | [address] | [place] [address] | [phone] | + + + + + Protime INR (11/08/2018 4:47 PDT) + + + + + + | Component | Value | Ref Range | Performed | Pathologist | | | | | At | Signature | + + + + + + | INR | 1.3Comment: REFERENCE | | [facility] | | | | RANGE:0.9 [...] | | | | | | [address];[place] | | | | | | [address] | | | | + + + + + + + + | Specimen | + + | Blood | + + + + + + + | Performing | Address | City/State/Zipcode | Phone Number | | Organization | | | | + + + + + | [facility] | [address] [facility] | [place] [address] | [phone] | + + + + + XR [...] is | | | punctured with an 5-Gambian thoracentesis catheter. Fluid is aspirated | | [...] the pleural space is punctured with an 5-Gambian | | thoracentesis catheter. Fluid is aspirated [...] + + | Performing | Address | City/State/[facility] | Phone Number | | Organization [...] | | LABORATORY | | | | Blvd;[place] [address] | | | | + + + [...] RESULT | Testing performed at | | [facility] | | | | [facility], [address] [facility] | | LABORATORY | | | | [place], [place] | | | | | | [id number]: Testing | | | | | | performed at [facility], [address] | | | | | | [facility], [place], [place] | | | | | | [address] | | | | + + + + + + + + | Specimen | + + | Body Fluid | + + + + + + + | Performing | Address | City/State/Zipcode | Phone Number | | Organization | | | | + + + + + | [facility] | [address] [facility] | [place] [address] | [phone] | + + + + + Protein, Body Fluid (11/07/2018 15:15 PDT) + + + + + + | Component | Value | Ref Range | Performed | Pathologist | | | | | At | Signature | + + + + + + | Protein, BF | 3.4Comment: This is not | g/dL | [facility] | | | | a high school band teacher validated | | LABORATORY | | | | sample type for this | | | | | | method. No | | | | | | referenceranges have | | | | | | been established.Testing | | | | | | performed at [facility], [address] | | | | | [address], | | | | | | [place] [address] | | | | + + + + + + | SOURCE | PLEURAL FLUIDComment: | | [facility] | | | | Testing performed at | | LABORATORY | | | | [facility];[address] [place] [address] | | | | | | [address];[place] [address] | | | | + + + + + + + + | Specimen | + + | Body Fluid | + + + + + + + | Performing | Address | City/State/Zipcode | Phone Number | | Organization | | | | + + + + + | [facility] | [address] | [place] [address] | [phone] | + + + + + Lactate dehydrogenase, body fluid (11/07/2018 15:15 PDT) + + + + + + | Component | Value | Ref Range | Performed | Pathologist | | | | | At | Signature | + + + + + + | LDH, BODY | 102Comment: This is not | U/L | [facility] | | | FLUID | a high school band teacher validated | | LABORATORY | | | | sample type for this | | | | | | method. No | | | | | | referenceranges have | | | | | | been established.Testing | | | | | | performed at [facility], [address] | | | | | | [address] [facility], | | | | | | [place] [address] | | | | + + + + + + + + | Specimen | + + | Body Fluid | + + + + + + + | Performing | Address | City/State/Zipcode | Phone Number | | Organization | | | | + + + + + | [facility] | [address] | [place] [address] | [phone] | + + + + + Glucose, Body Fluid (11/07/2018 15:15 PDT) + + + + + + | Component | Value | Ref Range | Performed | Pathologist | | | | | At | Signature | + + + + + + | Glucose | 96Comment: This is not a | mg/dL | [facility] | | | Fluid | high school band teacher validated | | LABORATORY | | | | sample type for this | | | | | | method. No | | | | | | referenceranges have | | | | | | been established.Testing | | | | | | performed at [facility], [address] | | | | | [address], | | | | | | [place] [address] | | | | + + + + + + | SOURCE | PLEURAL FLUIDComment: | | [facility] | | | | Testing performed at | | LABORATORY | | | | [facility];[address] | | | | | | [address];[place] [address] | | | | + + + + + + + + | Specimen | + + | Body Fluid | + + + + + + + | Performing | Address | City/State/Zipcode | Phone Number | | Organization | | | | + + + + + | [facility] | [address] | [place] [address] | [phone] | + + + + + Cell [...] + + + | BF RBC | <26146 | /mm3 | [facility] | | | [...] | | | Counted | performed at [facility];[address] | | LABORATORY | | | | [address];[place], [place] | | | | | | [address] | | | | + + + + + + + + | Specimen | + + | Body Fluid | + + + + + + + | Performing | Address | City/State/Zipcode | Phone Number | | Organization | | | | + + + + + | [facility] | [address] | [place] [address] | [phone] | + + + + + Amylase, Body Fluid (11/07/2018 15:15 PDT) + + + + + + | Component | Value | Ref Range | Performed | Pathologist | | | | | At | Signature | + + + + + + | AMYLASE | 46Comment: This is not a | U/L | [facility] | | | FLUID | high school band teacher validated | | LABORATORY | | | | sample type for this | | | | | | method. No | | | | | | referenceranges have | | | | | | been established.Testing | | | | | | performed at [facility], [address] | | | | | [address], | | | | | | [place] [address] | | | | + + + + + + + + | Specimen | + + | Body Fluid | + + + + + + + | Performing | Address | City/State/Zipcode | Phone Number | | Organization | | | | + + + + + | [facility] | [address] | [place] [address] | [phone] | + + + + + Albumin, Body Fluid (11/07/2018 15:15 PDT) + + + + + + | Component | Value | Ref Range | Performed | Pathologist | | | | | At | Signature | + + + + + + | Albumin, | 2.0Comment: This is not | g/dL | [facility] | | | Fluid | a high school band teacher validated | | LABORATORY | | | | sample type for this | | | | | | method. No | | | | | | referenceranges have | | | | | | been established.Testing | | | | | | performed at [facility], [address] | | | | | [address], | | | | | | [place] [address] | | | | + + + + + + + + | Specimen | + + | Body Fluid | + + + + + + + | Performing | Address | City/State/Zipcode | Phone Number | | Organization | | | | + + + + + | [facility] | [address] | [place] [address] | [phone] | + + + + + Medical Cytology (11/07/2018 15:15 PDT) + + | Specimen | + + | Body Fluid | + + + + + | Narrative | Performed At | + + + | ORDERING | [facility] | | PHYSICIAN:Dex ALMEIDA, Darell Scott [...] | | | preparation was performed by [email or web address], [address] | | | [place] [address] ([employer]: Matt Claudio D.O.; | | | CLIA#: [id number]).Professional interpretation was performed by | | | [email or web address], | | | [place] [address] ([employer]: Daniel Larson M.D.; | | | CLIA#: [id number]).6 Diagnostician: Enrrique Nichols | | | CT([facility])CytotechnologistDiagnostician: Daniel Larson | | | MDPathologistElectronically Signed 11/13/2018 | | |DESCRIPTION: | | |The preparations contain mesothelial cells, rare inflammatory cells, and acellular proteina ceous material. Atypical cytologic findings are not encountered. | | | | | |SPECIMEN ADEQUACY: | | |Satisfactory for Evaluation | | | | | |PERFORMING LABORATORY: | | |Technical preparation was performed by [email or web address], [address] [place] [address] ([employer]: Matt Claudio D.O.; CLIA#: [id number]). | | |Professional interpretation was performed by [email or web address], [address] [place] [address] ([employer]: Daniel Larson M.D.; [facility]# : [id number]).6 | | | | | |Diagnostician: Enrrique BROOKS([facility]) | | |M[employer] Winder | | |Diagnostician: Daniel Larson MD | [...] | [facility];[address] [facility] | | | | | | vd;[place] [address] | | | | + + + + + + + + | Specimen | + + | Blood | + + + + + + + | Performing | Address | City/State/Zipcode | Phone Number | | Organization | | | | + + + + + | [facility] | [address] | [place] [address] | [phone] | + + + + + ECG [...] at [facility] | | | | | | [address];[place], [place] | | | | | | [address] | | | | + + + + + + + + | Specimen | + + | Blood | + + + + + + + | Performing | Address | City/State/Zipcode | Phone Number | | Organization | | | | + + + + + | [facility] | [address] | [place] [address] | [phone] | + + + + + Platelet Count (11/07/2018 4:03 PDT) + + + + + + | Component | Value | Ref Range | Performed | Pathologist | | | | | At | Signature | + + + + + + | Platelet | 185Comment: Testing | 150 - 400 K/uL | [facility] | | | Count | performed at L, [address] | | LABORATORY | | | | [address], | | | | | | [place] [address] | | | | + + + + + + + + | Specimen | + + | Blood | + + + + + + + | Performing | Address | City/State/Zipcode | Phone Number | | Organization | | | | + + + + + | [facility] | [address] | [place] [address] | [phone] | + + + + + PTT (11/07/2018 4:03 PDT) + + + + + + | Component | Value | Ref Range | Performed | Pathologist | | | | | At | Signature | + + + + + + | PTT | 27Comment: Testing | 23 - 32 seconds | [facility] | | | | performed at [facility];[address] | | LABORATORY | | | | [address];[place] | | | | | | [address] | | | | + + + + + + + + | Specimen | + + | Blood | + + + + + + + | Performing | Address | City/State/Zipcode | Phone Number | | Organization | | | | + + + + + | [facility] | [address] | [place] [address] | [phone] | + + + + + Lactate Dehydrogenase (11/07/2018 4:03 PDT) + + + + + + | Component | Value | Ref Range | Performed | Pathologist | | | | | At | Signature | + + + + + + | LDH TOTAL | 202Comment: Testing | 120 - 246 U/L | [facility] | | | | performed at [facility] | | LABORATORY | | | | [facility];[place], [place] | | | | | | [address] | | | | + + + + + + + + | Specimen | + + | Blood | + + + + + + + | Performing | Address | City/State/Zipcode | Phone Number | | Organization | | | | + + + + + | [facility] | [address] | [place] [address] | [phone] | + + + + + Magnesium (11/07/2018 4:03 PDT) + + + + + + | Component | Value | Ref Range | Performed | Pathologist | | | | | At | Signature | + + + + + + | Magnesium | 2.3Comment: Testing | 1.7 - 2.4 mg/dL | [facility] | | | | performed at [facility];[address] | | LABORATORY | | | | [address];[place] | | | | | | [address] | | | | + + + + + + + + | Specimen | + + | Blood | + + + + + + + | Performing | Address | City/State/Zipcode | Phone Number | | Organization | | | | + + + + + | [facility] | [address] | [place] [address] | [phone] | + + + + + Comprehensive [...] | | | | | performed at [facility], [address] | | | | | | [facility], | | | | | | [place] [address] | | | | + + + + + + + + | Specimen | + + | Blood | + + + + + + + | Performing | Address | City/State/Zipcode | Phone Number | | Organization | | | | + + + + + | [facility] | [address] | [place] [address] | [phone] | + + + + + Troponin I (11/06/2018 21:54 PDT) + + + + + + | Component | Value | Ref Range | Performed | Pathologist | | | | | At | Signature | + + + + + + | Troponin I | 0.045 (H)Comment: 0.04 | 0.00 - 0.04 | [facility] | | | | ng/mL [...] | [facility];[address] [place] [address] | | | | | | [facility];[place] [address] | | | | + + + + + + + + | Specimen | + + | Blood | + + + + + + + | Performing | Address | City/State/Zipcode | Phone Number | | Organization | | | | + + + + + | [facility] | [address] | [place] [address] | [phone] | + + + + + Protime INR (11/06/2018 17:32 PDT) + + + + + + | Component | Value | Ref Range | Performed | Pathologist | | | | | At | Signature | + + + + + + | INR | 1.3Comment: REFERENCE | | [facility] | | | | RANGE:0.9 [...] [place];[address] | | | | | [address];[place] | | | | | | [address] | | | | + + + + + + + + | Specimen | + + | Blood | + + + + + + + | Performing | Address | City/State/Zipcode | Phone Number | | Organization | | | | + + + + + | [facility] | [address] | [place] [address] | [phone] | + + + + + ECHO [...] | [facility];[address] | | | | | [address];[place] [address] | | | | + + + + + + + + | Specimen | + + | Blood | + + + + + + + | Performing | Address | City/State/Zipcode | Phone Number | | Organization | | | | + + + + + | [facility] | [address] | [place] [address] | [phone] | + + + + + Magnesium (11/06/2018 15:57 PDT) + + + + + + | Component | Value | Ref Range | Performed | Pathologist | | | | | At | Signature | + + + + + + | Magnesium | 2.4Comment: Testing | 1.7 - 2.4 mg/dL | [facility] | | | | performed at [facility], [address] | | LABORATORY | | | | [address], | | | | | | [place] [address] | | | | + + + + + + + + | Specimen | + + | Blood | + + + + + + + | Performing | Address | City/State/Zipcode | Phone Number | | Organization | | | | + + + + + | [facility] | [address] | [place] [address] | [phone] | + + + + + documented [...] + + | ESRD on hemodialysis ([facility]) End stage renal disease | + + [...]
--- OUTSIDE RECORDS SUMMARY | ~2019-01-02 | XMS | Encounter Summary ---
Demographics + + + | Address | [address] | | | [place] [address] | + + + | Home Phone [...] | | | | | [place] [address] | | + + + + + | Thania Mallory | ECON | [address] | | | | | [place] [address] | | + + + + + | Deidra Weldon | ECON | [address] | | | | | [place] | | | | | [address] | | + + + + + Care Team Providers + +------+ + | Care Brick Layer Name | Role | Phone | [...] (psychosocial update | | | | [address] [place], [place] | [place], [place] | from pt's mom) | | | | [address] | [address] | | | | | [phone] | | | +--------+ + + + [...] Denise | | | | | | [place] | | | | | | [address] | | | | | | [phone] | | | | | | | | +--------+ + + + + documented as of this encounter Visit Diagnoses Not on filedocumented in this encounter"
--- OUTSIDE RECORDS SUMMARY | ~2019-01-02 | XMS | Encounter Summary ---
Demographics + + + | Address | [address] | | | [place] [address] | + + + | Home Phone [...] | | | | | [place] [address] | | + + + + + | Thania Mallory | ECON | [address] | | | | | [place] [address] | | + + + + + | Deidra Weldon | ECON | [address] | | | | | [place] | | | | | [address] | | + + + + + Care Team Providers + +------+ + | Care Capital Equipment Specialist Name | Role | Phone | [...] | 2013 | | [address] | [place], [place] | Update | | | | [address] | [address] | | | | | Rd [place], [place] | | | | | | [address] | | | | | | [phone] | | | +--------+ + + + [...] Denise | | | | | | [place], [place] | | | | | | [address] | | | | | | [phone] | | | | | | | | +--------+ + + + + documented as of this encounter Visit Diagnoses Not on filedocumented in this encounter"
--- OUTSIDE RECORDS SUMMARY | ~2019-01-02 | XMS | Encounter Summary ---
Demographics + + + | Address | [address] | | | [place] [address] | + + + | Home Phone [...] | | | | | [place] [address] | | + + + + + | Thania Mallory | ECON | [address] | | | | | [place] [address] | | + + + + + | Deidra Weldon | ECON | [address] | | | | | [place] | | | | | [address] | | + + + + + Care Team Providers + +------+ + | Care Seed Service Advisor Name | Role | Phone | [...] | | | | | Caro Chan [place], | | | | | | [place] [address] | | | +--------+ + + + [...] [place] | | | | | | [address] | | | | | | [phone] | | | | | | | [...] DANILO - | [address] | [place] [address] | | | IMMUNOGENETICS/TRANS | [address] | | | | [facility] | | | | + + + + + documented in this encounter Visit Diagnoses + + | Diagnosis | + + | End stage renal disease (HCC) End stage renal disease | + + documented in this encounter"
--- OUTSIDE RECORDS SUMMARY | ~2019-01-02 | XMS | Encounter Summary ---
Demographics + + + | Address | [address] | | | [place] [address] | + + + | Home Phone [...] | | | | | [place] [address] | | + + + + + | Thania Mallory | ECON | [address] | | | | | [place] [address] | | + + + + + | Deidra Weldon | ECON | [address] | | | | | [place] | | | | | [address] | | + + + + + Care Team Providers + +------+ + | Care Server Service Assistant Name | Role | Phone | [...] Hoffmann | | | | | [facility] | [facility] | | | | | Rd [place], [place] | [place], [place] | | | | | [address] | [address] | | | | | [phone] | | | +--------+ + + + [...] Denise | | | | | | [place], [place] | | | | | | [address] | | | | | | [phone] | | | | | | | | +--------+ + + + + documented as of this encounter Visit Diagnoses Not on filedocumented in this encounter"
--- OUTSIDE RECORDS SUMMARY | ~2019-01-02 | XMS | Encounter Summary ---
Demographics + + + | Address | [address] | | | [place] [address] | + + + | Home Phone [...] + | Cory Weldon | ECON | [address] | | | | | [place] [address] | | + + + + + | Thania Mallory | ECON | [address] | | | | | [place] [address] | | + + + + + | Deidra Weldon | ECON | [address] | | | | | [place] | | | | | [address] | | + + + + + Care Team Providers + +------+ + | Care Golf Technician Name | Role | Phone | [...] Requested | | | | [place] | [facility] | | | | | [facility] | [place], [place] | | | | | [address] | [address] | | | | | [facility] Mailcode: | | | | | | [address] | | | | | | [place], [place] | | | | | | [address] | | | | | | [phone] | | | +--------+ + + + [...] Denise | | | | | | [place], [place] | | | | | | [address] | | | | | | [phone] | | | | | | | | +--------+ + + + + documented as of this encounter Visit Diagnoses Not on filedocumented in this encounter"
--- OUTSIDE RECORDS SUMMARY | ~2019-01-02 | XMS | Encounter Summary ---
Demographics + + + | Address | [address] | | | [place] [address] [...] | | | | | [place] [address] | | + + + + + | Thania Mallory | ECON | [address] | | | | | [place] [address] | | + + + + + | Deidra Weldon | ECON | [address] | | | | | [place] | | | | | [address] | | + + + + + Care Team Providers + +------+ + | Care Mortgage Loan Officer Originator Name | Role | Phone | + [...] Mailcode: | | | | | | [address] | [address] | | | | | | [address]even Drew | [place] | | | | | | [place], | [place], [place] | | | | | | [place] | [address] | | | | | | [address] | Phone: | | | | | | Phone: | [phone] | | | | | | [phone] | | | | | | | Fax: | | | | | | | [phone] | | +--------+--------+ + + + + Encounter Details +--------+---------+ + + + | Date | Type | Department | Care Team | Description | +--------+---------+ + + + | 08/17/ | Office | Specialty Clinics | Sudhakar Joy | Anemia of chronic | | 2016 | Visit | at [facility] [address] MD [address] | kidney failure, | | | | [address] | [address] | stage 5 (HCC) | | | | Mailcode: DCH7 | [place], [place] | (Primary Dx); 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 She has collected enough money to [...] [address] Mail code [facility] [place], [place] [address] documented in this encounter Plan of Treatment +--------+ + + + + | Date | Type | Specialty | Care Team | Description | +--------+ + + + + | 05/04/ | Hospital | Adult Acute Care | El Starr MD | | | 2022 | Encounter | | [address] | | | | | | [place], [place] | | | | | | [address] | | | | | | [phone] | | | | | | | [...]
--- OUTSIDE RECORDS SUMMARY | ~2019-01-02 | XMS | Encounter Summary ---
Demographics + + + | Address | [address] | | | [place] [address] | + + + | Home Phone [...] + | Author | [facility] | | | and Josephana | + + + | Organization | [facility] [...] Providers + +------+ + | Care Steel Cutter Name | Role | Phone | [...] + + | 11/12/ | Telephone | [facility] | Silvia Rabago | DME (carlie, cmn, | | 2018 | | [address] | ABRIL Hernandez | [facility]) | | | | [place] | | | | | | [address] | | | | | | [phone] | | | +--------+ + + + [...] DAVIDSON | | | | | | [place] [address] | | | | | | [phone] | | | | | | | | +--------+---------+ + + + documented as of this encounter Visit Diagnoses Not on filedocumented in this encounter"
--- OUTSIDE RECORDS SUMMARY | ~2019-01-02 | XMS | Encounter Summary ---
Demographics + + + | Address | [address] | | | [place] [address] | + + + | Home Phone [...] | | | | | [place] [address] | | + + + + + | Thania Mallory | ECON | [address] | | | | | [place] [address] | | + + + + + | Deidra Weldon | ECON | [address] | | | | | [place] | | | | | [address] | | + + + + + Care Team Providers + +------+ + | Care Child Life Specialist Name | Role | Phone | [...] | Decision | | | | [facility] | [facility] | | | | | Rd [place], [place] | [place], [place] | | | | | [address] | [address] | | | | | [phone] | | | +--------+ + + + [...] [place] | | | | | | [address] | | | | | | [phone] | | | | | | | | +--------+ + + + + documented as of this encounter Visit Diagnoses Not on filedocumented in this encounter"
--- OUTSIDE RECORDS SUMMARY | ~2019-01-02 | XMS | Encounter Summary ---
Demographics + + + | Address | [address] | | | [place] [address] | + + + | Home Phone [...] | | | | | [place] [address] | | + + + + + | Thania Mallory | ECON | [address] | | | | | [place] [address] | | + + + + + | Deidra Weldon | ECON | [address] | | | | | [place] | | | | | [address] | | + + + + + Care Team Providers + +------+ + | Care Welt Rougher Name | Role | Phone | + [...] - Renal | | | | [facility] | [facility] | | | | | Rd [place], [place] | [place], [place] | | | | | [address] | [address] | | | | | [phone] | | | +--------+ + + + [...] Denise | | | | | | [place], [place] | | | | | | [address] | | | | | | [phone] | | | | | | | [...]
--- OUTSIDE RECORDS SUMMARY | ~2019-01-02 | XMS | Encounter Summary ---
Demographics + + + | Address | [address] | | | [place] [address] | + + + | Home Phone [...] | | | | | [place] [address] | | + + + + + | Thania Mallory | ECON | [address] | | | | | [place] [address] | | + + + + + | Deidra Weldon | ECON | [address] | | | | | [place] | | | | | [address] | | + + + + + Care Team Providers + +------+ + | Care Architectural Representative Name | Role | Phone | [...] Hoffmann | | | | | [address]NAL[address] [facility] | [facility] | | | | | Rd [place], [place] | [place], [place] | | | | | [address] | [address] | | | | | [phone] | | | +--------+ + + + [...] Denise | | | | | | [place], [place] | | | | | | [address] | | | | | | [phone] | | | | | | | | +--------+ + + + + documented as of this encounter Visit Diagnoses Not on filedocumented in this encounter"
--- OUTSIDE RECORDS SUMMARY | ~2019-01-02 | XMS | Encounter Summary ---
Demographics + + + | Address | [address] | | | [place] [address] | + + + | Home Phone [...] | | | | | [place] [address] | | + + + + + | Thania Mallory | ECON | [address] | | | | | [place] [address] | | + + + + + | Deidra Weldon | ECON | [address] | | | | | [place] | | | | | [address] | | + + + + + Care Team Providers + +------+ + | Care Pizza Maker Name | Role | Phone | [...] (Dialysis | | | | [address] [place] | [address] | unit updated) | | | | [place], [place] | [facility] [place] | | | | | [address] | [address] | | | | | [phone] | [phone] | | | | | | | [...] Denise | | | | | | [place] | | | | | | [address] | | | | | | [phone] | | | | | | | | +--------+ + + + + documented as of this encounter Visit Diagnoses Not on filedocumented in this encounter"
--- OUTSIDE RECORDS SUMMARY | ~2019-01-02 | XMS | Encounter Summary ---
Demographics + + + | Address | [address] | | | [place] [address] | + + + | Home Phone [...] | | | | | [place] [address] | | + + + + + | Thania Mallory | ECON | [address] | | | | | [place] [address] | | + + + + + | Deidra Weldon | ECON | [address] | | | | | [place] | | | | | [address] | | + + + + + Care Team Providers + +------+ + | Care Drafter Detail Name | Role | Phone | + [...] (Primary Dx) | | | | [facility] | [place], [place] | | | | | [address] | [address] | | | | | Caro Chan Mailcode: | [phone] | | | | | [address] | | | | | | [place], [place] | | | | | | [address] | | | | | | [phone] | | | +--------+ + + + [...] Denise | | | | | | [place], [place] | | | | | | [address] | | | | | | [phone] | | | | | | | [...] | e | 1:18 PM | MEDICARE 0890 HSP | procedure are in the | | | | PST | (Henoch-Schonlein | results section. | | |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 | | | | | | Hemodialysis status | | | | | | ([facility]) Chronic | | | | | | kidney disease, | | | | | | stage V ([facility]) | | + +--------+ + + + documented in this encounter Visit Diagnoses + + | Diagnosis | + + | End-stage renal disease (HCC) - Primary End stage renal disease | + + documented in this encounter"
--- OUTSIDE RECORDS SUMMARY | ~2019-01-02 | XMS | Encounter Summary ---
Demographics + + + | Address | [address] | | | [place] [address] | + + + | Home Phone [...] Author | [facility] | | | and Josephana | + + + | Organization | [facility] [...] + +------+ + | Care Electrical Engineering Intern Name | Role | Phone | [...] | Failure (Reviewed | | | | [place], [place] | | for CHF Quality | | | | [address] | | Measures) | | | | [phone] | | | +--------+ + + + [...] DAVIDSON | | | | | | [place] [address] | | | | | | [phone] | | | | | | | | +--------+---------+ + + + documented as of this encounter Visit Diagnoses Not on filedocumented in this encounter"
--- OUTSIDE RECORDS SUMMARY | ~2019-01-02 | XMS | Encounter Summary ---
Demographics + + + | Address | [address] | | | [place] [address] | + + + | Home Phone [...] | | | | | [place] [address] | | + + + + + | Thania Mallory | ECON | [address] | | | | | [place] [address] | | + + + + + | Deidra Weldon | ECON | [address] | | | | | [place] | | | | | [address] | | + + + + + Care Team Providers + +------+ + | Care Getter Operator Name | Role | Phone | [...] | Update | | | | [facility] | [facility] | | | | | Rd [place], [place] | [place], [place] | | | | | [address] | [address] | | | | | [phone] | | | +--------+ + + + [...] [facility] | | | | | | [address] | | | | | | [phone] | | | | | | | | +--------+ + + + + documented as of this encounter Visit Diagnoses Not on filedocumented in this encounter"
--- OUTSIDE RECORDS SUMMARY | ~2019-01-02 | XMS | Encounter Summary ---
Demographics + + + | Address | [address] | | | [place] [address] | + + + | Home Phone [...] + + | Author | [facility] | | | and Josephana | + + + | Organization | [facility] | | [...] Providers + +------+ + | Care Cost Report Clerk Name | Role | Phone | + +------+ + | Jonathan Alonso MD | PCP | | + +------+ + Encounter Details +--------+ + + + + | Date | Type | Department | Care Team | Description | +--------+ + + + + | 10/08/ | Orders Only | [facility] | Provider, | Systolic congestive | | 2019 | | SYSTEM GENERIC OP | MD [address] | heart failure (HCC) | | | | CONVERSION [address] | [address] | | | | | [address] [place], [place] | [place] [address] | | | | | [address] | | | | | | [phone] | | | +--------+ + + + [...] DAVIDSON | | | | | | [place] [address] | | | | | | [phone] | | | | | | | [...]
--- OUTSIDE RECORDS SUMMARY | ~2019-01-02 | XMS | Encounter Summary ---
Demographics + + + | Address | [address] | | | [place] [address] | + + + | Home Phone [...] | | | | | [place] [address] | | + + + + + | Thania Mallory | ECON | [address] | | | | | [place] [address] | | + + + + + | Deidra Weldon | ECON | [address] | | | | | [place] | | | | | [address] | | + + + + + Care Team Providers + +------+ + | Care Soil Conservation Technician Name | Role | Phone | [...] (psychosocial update | | | | Rd [place], [place] | [place], [place] | from pt's mom) | | | | [address] | [address] | | | | | [phone] | | | +--------+ + + + [...] Denise | | | | | | [place] | | | | | | [address] | | | | | | [phone] | | | | | | | | +--------+ + + + + documented as of this encounter Visit Diagnoses Not on filedocumented in this encounter"
--- OUTSIDE RECORDS SUMMARY | ~2019-01-02 | XMS | Encounter Summary ---
Demographics + + + | Address | [address] | | | [place] [address] | + + + | Home Phone [...] | | | | | [place] [address] | | + + + + + | Thania Mallory | ECON | [address] | | | | | [place] [address] | | + + + + + | Deidra Weldon | ECON | [address] | | | | | [place] | | | | | [address] | | + + + + + Care Team Providers + +------+ + | Care Mail Distribution Clerk Name | Role | Phone | [...] - [place]) | Caro Chan | Dustin [place], | | | | | Allergic | [place], [place] | [place] | | | | | purpura | [address] | [address] | | | | | ([facility]LY [facility]) | Phone: | Phone: | | | | | | [phone] | [phone] | | | | | | Fax: | Fax: | | | | | | [phone] | [phone] | +--------+--------+ + + + + Encounter Details +--------+---------+ + + + | Date | Type | Department | Care Team | Description | +--------+---------+ + + + | 12/19/ | Office | Kidney Transplant | Clinic, [address] | Patient on | | 2012 | Visit | at Physician's | [facility] | peritoneal dialysis | | | | Pavilion [address] [place], [place] | (HCC) (Primary Dx); | | | | [facility] [address] | [address] | Unspecified | | | | Mailcode: L590 | | essential | | | | [facility] | | hypertension; HSP | | | | [place], [place]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 El Starr MD lye treater, Division of Abdominal Organ Transplantation Professor of Urology CC: Sudhakar Joy MD [address] [place] [address] documented in this encoun ter Plan of Treatment +--------+ + + + + | Date | Type | Specialty | Care Team | Description | +--------+ + + + + | 05/04/ | Hospital | Adult Acute Care | El Starr MD | | | 2022 | Encounter | | [address] | | | | | | [place], [place] | | | | | | [address] | | | | | | [phone] | | | | | | | [...]
--- OUTSIDE RECORDS SUMMARY | ~2019-01-02 | XMS | Encounter Summary ---
Demographics + + + | Address | [address] | | | [place] [address] | + + + | Home Phone [...] | | | | | [place] [address] | | + + + + + | Thania Mallory | ECON | [address] | | | | | [place] [address] | | + + + + + | Deidra Weldon | ECON | [address] | | | | | [place] | | | | | [address] | | + + + + + Care Team Providers + +------+ + | Care Emergency Room Orderly Name | Role | Phone | + [...] | | | | | [address]NAL[address] Hoffmann [facility] | [facility] Dustin | | | | | Dustin [place], [place] | [place], [place] | | | | | [address] | [address] | | | | | [phone] | [phone] | | | | | | | [...] Denise | | | | | | [place], [place] | | | | | | [address] | | | | | | [phone] | | | | | | | | +--------+ + + + + documented as of this encounter Visit Diagnoses Not on filedocumented in this encounter"
--- OUTSIDE RECORDS SUMMARY | ~2019-01-02 | XMS | Encounter Summary ---
Demographics + + + | Address | [address] | | | [place] [address] | + + + | Home Phone [...] | | | | | [place] [address] | | + + + + + | Thania Mallory | ECON | [address] | | | | | [place] [address] | | + + + + + | Deidra Weldon | ECON | [address] | | | | | [place] | | | | | [address] | | + + + + + Care Team Providers + +------+ + | Care Compress Machine Operator Name | Role | Phone [...] Shun | | | | | [address] [facility] | [facility] | | | | | Rd [place], [place] | [place], [place] | | | | | [address] | [address] | | | | | [phone] | | | +--------+ + + + [...] [facility] | | | | | | [address] | | | | | | [phone] | | | | | | | | +--------+ + + + + documented as of this encounter Visit Diagnoses Not on filedocumented in this encounter"
--- OUTSIDE RECORDS SUMMARY | ~2019-01-02 | XMS | Encounter Summary ---
Demographics + + + | Address | [address] | | | [place] [address] | + + + | Home Phone [...] | | | | | [place] [address] | | + + + + + | Thania Mallory | ECON | [address] | | | | | [place] [address] | | + + + + + | Deidra Weldon | ECON | [address] | | | | | [place] | | | | | [address] | | + + + + + [...] | | | | | Caro Chan [place], | | | | | | [place] [address] | | | +--------+ + + + [...] Denise | | | | | | [place], [place] | | | | | | [address] | | | | | | [phone] | | | | | | | [...] [facility] - | [address] | [place] [address] | | | IMMUNOGENETICS/TRANS | [address] [...] [facility] - | [address], | [place] [address] | | | IMMUNOGENETICS/TRANS | [address] [...] [facility] - | [address] | [place] [address] | | | IMMUNOGENETICS/TRANS | [address] | | | | PLANT LAB[facility]ORY | | | | + + + + + documented in this encounter Visit Diagnoses + + | Diagnosis | + + | End stage renal disease (HCC) End stage renal disease | + + documented in this encounter"
--- OUTSIDE RECORDS SUMMARY | ~2019-01-02 | XMS | Encounter Summary ---
Demographics + + + | Address | [address] | | | [place] [address] | + + + | Home Phone [...] + | Author | [facility] | | | and Josephana | + + + | Organization | [facility] | | [...] Team Providers + +------+ + | Care Departure Clerk Name | Role | Phone | [...] + + | 11/15/ | Telephone | [facility] [place] [place] | George Torres RN | Medication Problem | | 2019 | | [address] | | ([address] O[address]) | | | | [place] | | | | | | [address] | | | | | | [phone] | | | +--------+ + + + [...] | | | | | [place] [address] | | | | | | [phone] | | | | | | | | +--------+---------+ + + + documented as of this encounter Visit Diagnoses Not on filedocumented in this encounter"
--- OUTSIDE RECORDS SUMMARY | ~2019-01-02 | XMS | Encounter Summary ---
Demographics + + + | Address | [address] | | | [place] [address] | + + + | Home Phone [...] | | | | | [place] [address] | | + + + + + | Thania Mallory | ECON | [address] | | | | | [place] [address] | | + + + + + | Deidra Weldon | ECON | [address] | | | | | [place] | | | | | [address] | | + + + + + Care Team Providers + +------+ + | Care Programming Intern Name | Role | Phone | [...] Update | | | | ANNAL[address] Hoffmann [facility] | [facility] | | | | | Rd [place], [place] | [place], [place] | | | | | [address] | [address] | | | | | [phone] | | | +--------+ + + + [...] Denise | | | | | | [place], [place] | | | | | | [address] | | | | | | [phone] | | | | | | | | +--------+ + + + + documented as of this encounter Visit Diagnoses Not on filedocumented in this encounter"
--- OUTSIDE RECORDS SUMMARY | ~2019-01-02 | XMS | Encounter Summary ---
Demographics + + + | Address | [address] | | | [place] [address] | + + + | Home Phone [...] | | | | | [place] [address] | | + + + + + | Thania Mallory | ECON | [address] | | | | | [place] [address] | | + + + + + | Deidra Weldon | ECON | [address] | | | | | [place] | | | | | [address] | | + + + + + Care Team Providers + +------+ + | Care Certified Hyperbaric Technician Name | Role | Phone | + +------+ + | Joanthan Alonso MD | PCP | | + [...] | | | | | nlein | [place], [place] | Mailcode: | | | | | purpura) | [address] | DC7S | | | | | nephritis | Phone: | [place] | | | | | (HCC) | [phone] | [place], [place] | | | | | Hemodialysis | Fax: | [address] | | | | | status | [phone] | Phone: | | | | | (HCC) | | [phone] | | | | | Chronic | | Fax: | | | | | kidney | | [phone] | | | | | disease, | [...] | | 2014 | Encounter | at [facility] [address] | | | | | | [address] | | | | | | Mailcode: DCH8S | | | | | | [place] | | | | | | [place], [place] | | | | | | [address] | | | | | | [phone] | | | +--------+ + + + [...] | | | | | | [place], [place] | | | | | | [address] | | | | | | [phone] | | | | | | | [...] | e | 1:18 PM | MEDICARE 7613 HSP | procedure are in the | [...] 2:35 PM PST Echocardiography Laboratory | | [address] | | [place] [address] | | ; | | [id number] | | | | Transthoracic Echocardiogram Report | | | | | | NAME: DARA WELDON Study Date: 01/20/2015 1:18:29 PM | | Order #: [id number] ACC #: [id number] | | | | | | : [...] on 01/20/2015 at 2:35:17 PM | | Oil Burner Installer: YARITZA KLINE [facility] | | | | | | cc: | | | | | | Modes utilized | | TTE 14148; Spectral Doppler 31553; Color flow Doppler 86848; | | | | | | | | Final | + + + + + + + | Performing | Address | City/State/Zipcode | Phone Number | | Organization | | | | + + + + + | [facility] DEPT [facility] | [address] | [place], [place] | | | CARDIOLOGY | [address] | [address] | | + + + + + [...]
--- OUTSIDE RECORDS SUMMARY | ~2019-01-02 | XMS | Encounter Summary ---
Demographics + + + | Address | [address] | | | [place] [address] | + + + | Home Phone [...] | | | | | [place] [address] | | + + + + + | Thania Mallory | ECON | [address] | | | | | [place] [address] | | + + + + + | Deidra Weldon | ECON | [address] | | | | | [place] | | | | | [address] | | + + + + + Care Team Providers + +------+ + | Care Cubing Machine Tender Name | Role | Phone [...] | ANNALISA [facility] | [facility] | | | | | Rd [place], [place] | [place], [place] | | | | | [address] | [address] | | | | | [phone] | | | +--------+ + + + [...] | | | | | | [place] | | | | | | [address] | | | | | | [phone] | | | | | | | | +--------+ + + + + documented as of this encounter Visit Diagnoses Not on filedocumented in this encounter"
--- OUTSIDE RECORDS SUMMARY | ~2019-01-02 | XMS | Encounter Summary ---
Demographics + + + | Address | [address] | | | [place] [address] | + + + | Home Phone [...] | | | | | [place] [address] | | + + + + + | Thania Mallory | ECON | [address] | | | | | [place] [address] | | + + + + + | Deidra Weldon | ECON | [address] | | | | | [place] | | | | | [address] | | + + + + + Care Team Providers + +------+ + | Care Scientific Investigator Name | Role | Phone | + +------+ + | Shahid Camargo MD | PCP | | + +------+ + Encounter Details +--------+ + + + + | Date | Type | Department | Care Team | Description | +--------+ + + + + | 12/19/ | Document-Sc | UNKNOWN DEPARTMENT | Unknown . | | | 2012 | anned | [address] [facility] [facility] | | | | | | [facility] | | | | | | [place], [place] | | | | | | [address] | | | +--------+ + + + [...] Denise | | | | | | [place], [place] | | | | | | [address] | | | | | | [phone] | | | | | | | | +--------+ + + + + documented as of this encounter Visit Diagnoses Not on filedocumented in this encounter"
--- OUTSIDE RECORDS SUMMARY | ~2019-01-02 | XMS | Encounter Summary ---
[...] + | Author | [facility] (Historical as of | | | 10-20-18) | + + + | Organization | [facility] (Historical as of | | | 10-20-18) [...] Providers + +------+ + | Care Electric Golf Cart Repairer Name | Role | Phone | [...] | | 2018 | on Only | [address] | [address] | [facility] Provider | | | | [address] | [address] [place], [place] | Dialysis Rounding | | | | [place] [address] | [address] | Note) | | | | [phone] | | | +--------+ + + + [...]
--- OUTSIDE RECORDS SUMMARY | ~2019-01-02 | XMS | Encounter Summary ---
Demographics + + + | Address | [address] | | | [place] [address] | + + + | Home Phone [...] | | | | | [place] [address] | | + + + + + | Thania Mallory | ECON | [address] | | | | | [place] [address] | | + + + + + | Deidra Weldon | ECON | [address] | | | | | [place] | | | | | [address] | | + + + + + Care Team Providers + +------+ + | Care Buffing Line Set Up Worker Name | Role | Phone [...] Change (Close | | | | ANNALISA [facility] | [facility] | referral) | | | | Rd [place], [place] | [facility] [place] | | | | | [address] | [address] | | | | | [phone] | | | +--------+ + + + [...] [facility] | | | | | | [address] | | | | | | [phone] | | | | | | | | +--------+ + + + + documented as of this encounter Visit Diagnoses Not on filedocumented in this encounter"
--- OUTSIDE RECORDS SUMMARY | ~2019-01-02 | XMS | Encounter Summary ---
Demographics + + + | Address | [address] | | | [place] [address] | + + + | Home Phone [...] | | | | | [place] [address] | | + + + + + | Thania Mallory | ECON | [address] | | | | | [place] [address] | | + + + + + | Deidra Weldon | ECON | [address] | | | | | [place] | | | | | [address] | | + + + + + Care Team Providers + +------+ + | Care Mechanical Press Operator Name | Role | Phone [...] [address] | | | | | ([facility]) | [address] | [address] [place], | | | | | Allergic | [place], [place] | [place] | | | | | purpura | [address] | [address] | | | | | ([facility]) | Phone: | Phone: | | | | | | [phone] | [phone] | | | | | | Fax: | Fax: | | | | | | [phone] | [phone] | +--------+--------+ + + + + Encounter Details +--------+ + + + + | Date | Type | Department | Care Team | Description | +--------+ + + + + | 12/20/ | Hospital | Radiology at [facility] | | | | 2012 | Encounter | [address] | | | | | | [address] Mailcode: | | | | | | [address] | | | | | | [place], [place] | | | | | | [address] | | | | | | [phone] | | | +--------+ + + + [...] [place] | | | | | | [address] | | | | | | [phone] | | | | | | | [...] | | + +---------+ + + | [facility] DEPARTMENT OF | | | | | RADIOLOGY | | | | + +---------+ + + documented in this encounter Visit Diagnoses + + | Diagnosis | + + | 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
--- OUTSIDE RECORDS SUMMARY | ~2019-01-02 | XMS | Encounter Summary ---
Demographics + + + | Address | [address] | | | [place] [address] | + + + | Home Phone [...] | | | | | [place] [address] | | + + + + + | Thania Mallory | ECON | [address] | | | | | [place] [address] | | + + + + + | Deidra Weldon | ECON | [address] | | | | | [place] | | | | | [address] | | + + + + + Care Team Providers + +------+ + | Care Scleroscope Tester Name | Role | Phone | [...] Shun | | | | | ANNALISA [facility] | [facility] | | | | | Rd [place], [place] | [place], [place] | | | | | [address] | [address] | | | | | [phone] | | | +--------+ + + + [...] Denise | | | | | | [place], [place] | | | | | | [address] | | | | | | [phone] | | | | | | | | +--------+ + + + + documented as of this encounter Visit Diagnoses Not on filedocumented in this encounter"
--- OUTSIDE RECORDS SUMMARY | ~2019-01-02 | XMS | Encounter Summary ---
Demographics + + + | Address | [address] | | | [place] [address] | + + + | Home Phone [...] | | | | | [place] [address] | | + + + + + | Thania Mallory | ECON | [address] | | | | | [place] [address] | | + + + + + | Deidra Weldon | ECON | [address] | | | | | [place] | | | | | [address] | | + + + + + Care Team Providers + +------+ + | Care Catering Cook Name | Role | Phone | + +------+ + | Jonathan Alonso MD | PCP | | + +------+ + Encounter Details +--------+ + + + + | Date | Type | Department | Care Team | Description | +--------+ + + + + | 01/20/ | Hospital | Radiology at [facility] | | | | 2014 | Encounter | [address] | | | | | | [address] Mailcode: | | | | | | [address] | | | | | | [place], [place] | | | | | | [address] | | | | | | [phone] | | | +--------+ + + + [...] Denise | | | | | | [place], [place] | | | | | | [address] | | | | | | [phone] | | | | | | | [...] | | + +---------+ + + | [facility] DEPARTMENT OF | [...]
--- OUTSIDE RECORDS SUMMARY | ~2019-01-02 | XMS | Encounter Summary ---
Demographics + + + | Address | [address] | | | [place] [address] | + + + | Home Phone [...] | | | | | [place] [address] | | + + + + + | Deidra Weldon | ECON | [address] | | | | | [place] | | | | | [address] | | + + + + + Care Team Providers + +------+ + | Care Senior Production Supervisor Name | Role | Phone | + +------+ + | Shahid Camargo MD | PCP | | + +------+ + Encounter Details +--------+------+ + + + | Date | Type | Department | Care Team | Description | +--------+------+ + + + | 12/20/ | Lab | Lab Center at [facility] | | Allergic purpura- | | 2012 | | 7th Floor [address] | | MEDICARE 2728 | | | | [facility] | | (Primary Dx) | | | | [place], [place] | | | | | | [address] | | | | | | [phone] | | | +--------+------+ + + + [...] Denise | | | | | | [place], [place] | | | | | | [address] | | | | | | [phone] | | | | | | | [...] - | [address] | [place], [place] | | | IMMUNOGENETICS/TRANS | [address] [...] - | [address] | [place], [place] | | | IMMUNOGENETICS/TRANS | [address] [...] [facility] - | [address] | [place] [address] | | | IMMUNOGENETICS/TRANS | [address] [...] [facility] - | [address] | [place] [address] | | | IMMUNOGENETICS/TRANS | [address] [...] + + | [facility] - | [address] | [place] [address] | | | IMMUNOGENETICS/TRANS | [address] [...] - | [address] | [place], [place] | | | IMMUNOGENETICS/TRANS | [address] [...] - | [address] | [place], [place] | | | IMMUNOGENETICS/TRANS | Suite [...] [facility] - | [address] | [place] [address] | | | IMMUNOGENETICS/TRANS | [address] [...] + + | [facility] - | [address] | [place] [address] | | | IMMUNOGENETICS/TRANS | [address] [...] | + + + + + | [facility] | [address] | [place] [address] | | | SERVICES, | [address] [...] [address] | [place] [address] | | | SERVICES, | [address] [...] | + + + + + | [facility] | [address] | [place] [address] | | | SERVICES, CORE | PARK [...] UNIV | | | | Pippa Sauceda, [facility] | | PTH - INTFC | | | | [address] | | | | | | [phone].[email or web address]. | | | | | | annalee, [...] REG | [address] | [place], [place] | | | UNIV PTH - INTFC | | [address] | | + + + + + [...] | [facility] | [address] | [place] [address] | | | SERVICESHOMERO | [address] [...] | + + + + + | [facility] | [address] | [place] [address] | | | SERVICES, CORE | PARK [...] + | [facility] - | [address] | [place] [address] | | | [place] | | | [...] + + + + + | [facility] | [address] | [place] [address] | | | SERVICES, CORE | PARK [...] (H) | 2.5 - 6.2 mg/dL | [facility] | | | PLASMA | | | [...] [address] | [place] [address] | | | SERVICES, CORE | PARK [...] | + + + + + | [facility] | [address] | [place] [address] | | | SERVICES, CORE | PARK [...] | | | [facility] | | + + + + + + + + | Specimen | + + | Blood - Blood | + + + + + + + | Performing | Address | City/State/Zipcode | Phone Number | | Organization | | | | + + + + + | [facility] - | [address] | [place] [address] | | | [place] | | | [...] at: | | | | | | http://www.cdc.gov/nchstp/tb/pubs/tbfactssheets/699145.htm | | | Test performed by: [facility] [address] | [address] [place] [address] | | + + + + + [...] [facility] | [address] | [place] [address] | | | SERVICES, SPECIAL | PARK [...] gene at | DIAGNOSTIC | | nucleotide [address]. Please note that this assay only detects the | LABORATORIES | | [id number] point mutation and therefore a normal result [...] has been analyzed for the presence of C70267G | | | mutation in the prothrombin [...] | | Heterozygotes for the common prothrombin I05734A mutation constitute | | | approximately 2% of the normal white population (1,2). | | | References: 1.) Poort et al. Blood 88, 2295-9312 (1995). 2.) Ricardo | | | et al. Circulation 99, 999-1004 (1998). 3.) Al Montalvo, and | | | Press. Amer J Clin Path 155, 439-47 (2000). This test was | | | developed and its performance characteristics determined by the [facility] | | | [facility]. It has | | | not been cleared or approved by the Food and Drug Administration. | | | FDA approval is not required for clinical use of this test, and | | | therefore validation was done as required under the requirements of | | | the Clinical Laboratory Improvement Act of 1988. [facility] | | | Diagnostic [facility] is a [...] + + + + | [facility] | [address] | [place] [address] | | | DIAGNOSTIC | [address] [...] [address] | [place] [address] | | | SERVICES, HOMERO | PARK [...] | + + + + + | [facility] | [address] | [place] [address] | | | SERVICES, CORE | LONG [...] [facility] | [address] | [place] [address] | | | SERVICES, CORE | PARK [...] + + + + + | [facility] | [address] | [place] [address] | | | HOMERO LAN | LONG [...] | | | | | [place], [place] [address] | | | | | | [phone].[email or web address]. | | | | | | Faisal [...] [facility] | [address] | [place], [place] | | | UNIV PTH - INTFC | | [address] | | + + + + + [...] + + + + + | [facility] | [address] | [place] [address] | | | SERVICES, SPECIAL | PARK [...] C PCR, | Undetected | IU/mL | [facility] | | | QUANT | | | [...] + + + + | [facility] | [address] | [place] [address] | | | DIAGNOSTIC | [address] [...] + | [facility] - | [address] | [place] [address] | | | [place] | | | [...] + | [facility] - | [address] | [place] [address] | | | [place] | | | [...] + | [facility] - | [address] | [place] [address] | | | [place] | | | [...] + | [facility] - | [address] | [place] [address] | | | [place] | | | | + + + [...] less......Not | | | | | | Ptluyshn52.0-21.9 | | | | | | U/mL.........Indetermina [...] available | | | | | | atwww.Yeeply Mobile.LeadiD/eb | | | | | | vdx.Performed by [facility] | | | | | | Laboratories,[address] | | | | | | [place], [facility] [address] | | | | | | [phone].Payverislab. | | | | | | Faisal [...] [facility] | [address] | [place], [place] | | | UNIV PTH - INTFC | | [address] | | + + + + + [...] + | [facility] - | [address] | [place] [address] | | | [facility] | | | | + + [...] + + + + + | [facility] | [address] | [place] [address] | | | SERVICES, CORE | PARK [...] by | | | | | | [facility],[address] | | | | | | [address], [facility],[place] | | | | | | [address] | | | | | | [phone].Payverislab. | | | | | | [facility], Faisal Caraballo, | | | | [...] [facility] | [address] | [place], [place] | | | UNIV PTH - INTFC | | [address] | | + + + + + [...] [address] | [place] [address] | | | SERVICES, CORE | PARK [...] [address] | [place] [address] | | | HOMERO LAN | LONG [...] + + + + + | 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
--- OUTSIDE RECORDS SUMMARY | ~2019-01-02 | XMS | Encounter Summary ---
[...] | | | | | [place] [address] | | + + + + + | Thania Mallory | ECON | [address] | | | | | [place] [address] | | + + + + + | Deidra Weldon | ECON | [address] | | | | | [place] | | | | | [address] | | + + + + + Care Team Providers + +------+ + | Care Cost Manager Name | Role | Phone | [...] Decision | | | | [address] [facility] | [facility] | | | | | Rd [place], [place] | [place], [place] | | | | | [address] | [address] | | | | | [phone] | | | +--------+ + + + [...] Denise | | | | | | [place], [place] | | | | | | [address] | | | | | | [phone] | | | | | | | | +--------+ + + + + documented as of this encounter Visit Diagnoses Not on filedocumented in this encounter"
--- OUTSIDE RECORDS SUMMARY | ~2019-01-02 | XMS | Encounter Summary ---
Demographics + + + | Address | [address] | | | [place] [address] | + + + | Home Phone [...] | Author | [facility] | | | and [place] | + + + | Organization | [facility] | | [...] Team Providers + +------+ + | Care Pyrotechnician Name | Role | Phone | + [...] + + | 12/19/ | Telephone | [facility] | George Torres RN | Congestive Heart | | 2019 | | [address] | | Failure (Reviewed | | | | [place], [place] | | for CHF Quality | | | | [address] | | Measures) | | | | [phone] | | | +--------+ + + + [...] [address] | | | | | | [place] [address] | | | | | | [phone] | | | | | | | | +--------+---------+ + + + documented as of this encounter Visit Diagnoses Not on filedocumented in this encounter"
--- OUTSIDE RECORDS SUMMARY | ~2019-01-02 | XMS | Encounter Summary ---
Demographics + + + | Address | [address] | | | [place] [address] | + + + | Home Phone [...] | | | | | [place] [address] | | + + + + + | Thania Mallory | ECON | [address] | | | | | [place] [address] | | + + + + + | Deidra Weldon | ECON | [address] | | | | | [place] | | | | | [address] | | + + + + + Care Team Providers + +------+ + | Care Hydraulic Billet Maker Name | Role | Phone | [...] questions) | | | | [address] [place] | [facility] | | | | | [place], [place] | [place], [place] | | | | | [address] | [address] | | | | | [phone] | | | +--------+ + + + [...] Denise | | | | | | [place] | | | | | | [address] | | | | | | [phone] | | | | | | | | +--------+ + + + + documented as of this encounter Visit Diagnoses Not on filedocumented in this encounter"
--- OUTSIDE RECORDS SUMMARY | ~2019-01-02 | XMS | Clinical Summary ---
Demographics + + + | Address | [address] | | | [place] [address] | + + + | Home Phone [...] + | Author | [facility] (Historical as of | | | 10-20-18) | + + + | Organization | [facility] (Historical as of | | | 10-20-18) [...] Providers + +------+ + | Care [employer] Reporter Name | Role | Phone | [...] René Hinson MD | Other (September | 2018 | on Only | | | 2019-Stephenita Provider | | | | | | [...] Only | | Halima Guzmán, | | | 2018 | | | STAFF PHYSICIAN | | +--------+ + + + + [...] | Left: | SYNOVIS | | | [id number] | | 0.8x8cm - [id number]: | | Arm | | | | [...] | | | COVIDIEN | | | [id number] | | 23cmExplanted: Qty: 1 on | | | | | | [id number] / | | 04/08/2014 | | | | | | | | | | | | | | /[id number] | | | | | | | [...] | + +--------+ + + + | [facility] CARD PANEL W/O | STAT | 10/17/2018 [...] [address] | | | | [facility], | | | | | [place] [address] | | | + + + + + + + | Specimen | + + | Blood | + + + + + + + | Performing | Address | City/State/Zipcode | Phone Number | | Organization | | | | + + + + + | [facility] | [address] | [place] [address] | [phone] | | LABORATORY | [address]vd[address] | | [...] CHEST 1 VIEW (10/17/2018); CHEST TWO VIEWS [id number] | | | (10/17/2018); FINDINGS: Compared to [...] VIEW | | (10/17/2018); CHEST TWO VIEWS [id number] (10/17/2018); | | FINDINGS: | | Compared [...] | + + + + + | [facility] | [address] | [place] [address] | | + + + + + [...] pleural space is punctured with an 5 Macedonian ComAbilityesis | | | catheter. Fluid is aspirated without complication. The patient | | | tolerated the procedure well. No immediate complications. Estimated | | | Blood Loss: Minimal. | | + + + + + | Procedure Note | + + | Sonido Steele Results In 10/18/2018 5:33 PM PDT ULTRASOUND GUIDED RIGHT [...] pleural space is punctured with an 5 Macedonian Yueh | | centesis catheter. Fluid is [...] + + | [facility] | [address] | [place] [address] | | + + + + + EKG STANDARD 12 LEAD (10/18/2018 6:38 AM) + + + + + | Component | Value | Ref Range | Performed At | + + + + + | Ventricular Rate | 82 | BPM | [facility] | + [...] + + + + | Calculated P Chancellor | 46 | degrees | [facility] | + + + + + | Calculated R Chancellor | 127 | degrees | [facility] | + + + + + | Calculated T Chancellor | 94 | degrees | [facility] E[facility] | + + + + + | Diagnosis | Normal sinus rhythmRight | | [facility] EKG | | | axis | | [...] + + + + + | [facility] | [address] | [place] [address] | | + + + + + [...] performed | | | | | at [facility], [address] | | | | | [address], | | | | | [place] [address] | | | | |Testing performed at [facility], [address] [facility], [place] [address] | | | | | | | | + + + + + + + | Specimen | + + | Blood | + + + + + + + | Performing | Address | City/State/Zipcode | Phone Number | | Organization | | | | + + + + + | [facility] | [address] | [place] [address] | [phone] | | LABORATORY | Blvd. | | | + + + + + Magnesium (10/18/2018 5:44 AM) + + + + + | Component | Value | Ref Range | Performed At | + + + + + | MAGNESIUM | 2.4Comment: Testing | 1.7 - 2.4 mg/dL | [facility] | | | performed at [facility], [address] | | LABORATORY | | | [facility], | | | | | [place] [address] | | | + + + + + + + | Specimen | + + | Blood | + + + + + + + | Performing | Address | City/State/Zipcode | Phone Number | | Organization | | | | + + + + + | [facility] | [address] | [place] [address] | [phone] | | LABORATORY | Blvd. | | [...] | | performed at [facility], [facility] | | | | | [facility], | | | | | [place] [address] | | | + + + + + + + | Specimen | + + | Blood | + + + + + + + | Performing | Address | City/State/Zipcode | Phone Number | | Organization | | | | + + + + + | [facility] | [address] [place] [address] | [place] [address] | [phone] | | LABORATORY | Blvd. | | [...] | 0.00 - 0.04 ng/mL | [facility] LABORATORY | | | ng/mL or [...] performed at | | | | | [facility];[address] | | | | [address];[place] [address] | | | + + + + + + + | Specimen | + + | Blood | + + + + + + + | Performing | Address | City/State/Zipcode | Phone Number | | Organization | | | | + + + + + | [facility] | [address] | [place] [address] | | + + + + + ANYA (10/17/2018 6:05 PM)Only the most recent of 2 results within the time period is includ ed. + + + + + | Component | Value | Ref Range | Performed At | + + + + + | CPK | 443 (H)Comment: Testing | 30 - 240 U/L | [facility] LAB[facility]ATORY | | | performed at [facility];[address] | | | | [address];[place] | | | | | [address] | | | + + + + + + + | Specimen | + + | Blood | + + + + + + + | Performing | Address | City/State/Zipcode | Phone Number | | Organization | | | | + + + + + | [facility] | [address] | [place] [address] | | + + + + + Protime-INR (10/17/2018 8:10 AM) + + + + + | Component | Value | Ref Range | Performed At | + + + + + | INR | 1.2Comment: REFERENCE | | [facility] | | | RANGE:0.9 - [...] | | | performed at [facility] | | | | | [address];[place], [place] | | | | | [address] | | | + + + + + + + | Specimen | + + | Blood | + + + + + + + | Performing | Address | City/State/Zipcode | Phone Number | | Organization | | | | + + + + + | [facility] | [address] | [place] [address] | | + + + + + [...] [facility] | [address] | [place] [address] | | + + + + + [...] + + + + | Calculated P Chancellor | 33 | degrees | [facility] | + + + + + | Calculated R Chancellor | -22 | degrees | [facility] | + + + + + | Calculated T Chancellor | 92 | degrees | [facility] | + + + + + | Diagnosis | Sinus | | [facility] E[facility] | | | tachycardiaNonspecific T [...] -COMPUTER (500), | | | | | news videotape editor Daniela Esquivel | | | | | (18) on 10/17/2018 | | | | | 9:07:21 AM | | | + + + + + + + + + + | Performing | Address | City/State/Zipcode | Phone Number | | Organization | | | | + + + + + | [facility] | [address] | [place] [address] | | + + + + + Cardiac Panel (10/17/2018 3:49 AM) + + + + + | Component | Value | Ref Range | Performed At | + + + + + | WBC | 6.63 | 3.80 - 11.00 K/uL | [facility] | + + + + + | RBC | 3.07 (L) | 3.70 - 5.10 M/uL | [facility] | + + + + + | HGB | 10.9 (L) | 11.3 - 15.5 g/dL | [facility] | + + + + + | HCT | 32.7 (L) | 34.0 - 46.0 % | [facility] [...] (H) | 37 - 53 fl | [facility] | + + + + + | PLT | 158 | 150 - 400 K/uL | [facility] | + + + + + | MPV | 10.2 | fl | [facility] | + + + + + | DIFF TYPE | AUTOMATED | | [facility] | + + + + + | NEUTROPHILS | 70.67 | % | [facility] | + + + + + [...] 0.08 | 0.00 - 0.10 K/uL | [facility] [...] 142 | 135 - 145 mmol/L | [facility] | + + + + + | POTASSIUM | 5.5 (H)Comment: SLT | 3.5 - 4.9 mmol/L | [facility] | | | HEMOLYSIS | | [...] 2.5 | 1.3 - 4.9 g/dL | [facility] | + + + + + | A/G | 1.6 | 1.0 - 2.4 | [facility] | + + + + + | TBIL | 0.6 | 0.1 - 1.5 mg/dL | [facility] | + + + + + | ALK PHOS | 85 | 35 - 115 U/L | [facility] | + + + + + | AST | 40 | 10 - 45 U/L | [facility] | + + + + + | ALT | 31 | 10 - 65 U/L | [facility] | + + + + + | EGFR | 3 (L)Comment: GFR <60: | >60 mL/min/1.73m2 | [facility] | | | CHRONIC KIDNEY [...] the | | | | | MDRD [facility] traceable | | | | | equation. | | | + + + + + | CPK | 690 (H)Comment: SLT | 30 - 240 U/L | [facility] | | | HEMOLYSIS | | | + + + + + | INR | 1.2Comment: REFERENCE | | [facility] | | | RANGE:0.9 - [...] | 23 - 32 seconds | [facility] | + + + + + | MMB | 17.8 (H) | 0.5 - 3.6 ng/mL | [facility] | + + + + + | CK-MB Index | UNABLE TO | | [facility] | | | CALCULATEComment: | | | | | Testing performed at | | | | | [facility];[address] [place] [address] | | | | | [facility];[place] [address] | | | + + + + + + + + + + | Performing | Address | City/State/Zipcode | Phone Number | | Organization | | | | + + + + + | [facility] | [address] | [place] [address] | | + + + + + Brain natriuretic peptide (10/17/2018 3:49 AM) + + + + + | Component | Value | Ref Range | Performed At | + + + + + | BRAIN NATRIURETIC | 1,151.26 (H)Comment: | 0 - 100 pg/mL | [facility] | | PEPTIDE | Testing performed at | | | | | [facility];[address] | | | | | [address] [address] | | | + + + + + + + + + + | Performing | Address | City/State/Zipcode | Phone Number | | Organization | | | | + + + + + | [facility] | [address] | [place] [address] | | + + + + + ED INFORMATION EXCHANGE (10/17/2018 1:10 AM) + + + | Narrative | Performed At | + + + | [id number]:SHONDA [id number] Criteria Met Care | ED | | [...] | | | Medical/Surgical 05/28/18 12:00 AM [facility] | | | PATIENT HAS AN APT WITH PCP DR NICHOLSON ON 09/11/18. | | | PATIENT RETAIL SPECIALIST- DR [phone] Patient is | | | currently established with [facility]. If patient is seen in | | | the ED during business hours. Please contact CHWs at [facility] | | | [facility]. Care Recommendation: This patient has had [...] | | mo.) Facility Visits Low Acuity [facility] 4 0 | | | [facility] 12 0 Total 16 0 Note: [...] | or Chief Complaint Oct 17, 2018 [facility] [place]. [place] | | | Emergency Oct 16, 2018 [facility] [place] | | | Emergency Chief Complaint: EXCESS FLUID Aug 20, 2018 [facility]. | | | [place] Emergency Dependence on renal dialysis | | | Chronic kidney disease, unspecified Allergy status to | | | other drugs, medicaments and biological substances status | | | Chronic pulmonary edema Other maintenance associate (current) drug therapy | | | Allergy status to narcotic agent status Dyspnea, | | | unspecified Radiographic dye allergy status Aug 13, 2018 | | | [facility] [place] [facility] [place] Emergency Allergy status to | | | other drugs, medicaments and biological substances status | | | Pleural effusion, not elsewhere classified End stage renal | | | disease Allergy status to narcotic agent status | | | Hyperkalemia Other specified abnormalities of plasma proteins | | | Other jail (current) drug therapy Radiographic dye | | | allergy status Dependence on renal dialysis Chest pain, | | | unspecified Aug 13, [address] [facility] | | | Emergency July 18, [address] [facility] | | | Emergency Cough Pneumonia Hypoxemia | | | Pleural effusion, not elsewhere classified Fever, unspecified | | | Personal history of other diseases of urinary system May | | | 2018 [facility] [place] [facility] Emergency Personal | | | history of nicotine dependence Other specified respiratory | | | disorders Cough Radiographic dye allergy status | | | Allergy status to narcotic agent status Chronic kidney disease, | | | unspecified Allergy status to other drugs, medicaments and | | | biological substances status Jun 19, 2018 [facility] | | | [place] Emergency Other chest pain End stage renal | | | disease Dependence on renal dialysis Personal history of | | | nicotine dependence Fluid overload, unspecified Heart | | | failure, unspecified jail (current) use of opiate | | | analgesic Allergy status to other drugs, medicaments and | | | biological substances status Radiographic dye allergy status | | | Other maintenance associate (current) drug therapy Jun 12, 2018 [facility] | | | [place] Emergency Shortness of breath | | | Fluid overload, unspecified Hyperkalemia Radiographic | | | dye allergy status Allergy status to narcotic agent status | | | Other jail (current) drug therapy Allergy status to | | | other drugs, medicaments and biological substances status | | | Unspecified asthma, uncomplicated Dependence on renal dialysis | | | Chronic kidney disease, unspecified Jun 11, [address] | | | 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 General Medicine Hypoxemia Personal history | | | of other diseases of urinary system Fever, unspecified | | | Pleural effusion, not elsewhere classified End stage renal | | | disease Dependence on renal dialysis Anemia in chronic | | | kidney disease Pulmonary hypertension, unspecified | | | Chronic right heart failure May 26, 2018 [facility] | | | [facility] General Medicine Acute respiratory distress | | [...] has registered | | | at the [facility] Emergency Department For more | | | information visit: | | | [email or web address] | | | [email or web address] PLEASE NOTE: 1. [...] | | completeness of information provided. 2019 [employer] | | | [employer]. - [email or web address] | | + + + + + | Procedure Note | + + | Interface, Lab - 10/17/2018 1:12 AM PDT Formatting of this note may be different | | from the original.[id number] Met Care Guidelines 10 in | | 12 2 in 2Security and SafetyNo recent Security Events currently on fileED Care | | GuidelinesThere are currently no ED Care Guidelines for this patient. Please check your | | facility's medical records system.Care HistoryMedical/Surgical05/28/18 12:00 AM [facility]. | | [facility] PATIENT HAS AN APT WITH PCP DR NICHOLSON ON 09/11/18. PATIENT | | RETAIL SPECIALIST- DR [phone] Patient is currently established with | [facility]. If patient is seen in the ED during business hours. Please contact CHWs | | at [facility].Care Recommendation:This patient has had 5 or more [...] Visit Count (12 mo.)Facility Visits Low Acuity [facility] | | Center 4 0 [facility] 12 0 Total 16 0 Note: [...] | | Complaint Oct 17, 2018 [facility] [place]. [place] Emergency Oct 16, 2018 [facility]. | | [place] [place] [place] Emergency Chief Complaint: EXCESS FLUID Aug 20, [address] | | [place] Emergency Dependence on renal dialysis Chronic kidney | | disease, unspecified Allergy status to other drugs, medicaments and biological | | substances status Chronic pulmonary edema Other maintenance associate (current) drug therapy | | Allergy status to narcotic agent status Dyspnea, unspecified Radiographic dye | | allergy status Aug 13, 2018 [facility] [place] Emergency Allergy status to [...] dialysis Chest pain, unspecified Aug 13, [address] [facility] | | Emergency July 18, [address] [facility] Emergency Cough Pneumonia | | [...] biological substances status Jun 19, 2018 [facility]. | | [place] Emergency Other chest pain End stage renal disease Dependence on | | renal dialysis Personal history of nicotine dependence Fluid overload, unspecified | | Heart failure, unspecified strand and binder controller (current) use of opiate analgesic Allergy | | status to other drugs, medicaments and biological substances status Radiographic dye | | allergy status Other jail (current) drug therapy Jun 12, 2018 [facility] | | [place] Emergency Shortness of breath Fluid overload, unspecified | | Hyperkalemia Radiographic dye allergy status Allergy status to narcotic agent | | status Other jail (current) drug therapy Allergy status to other [...] long | | term (current) 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 jail (current) use of opiate analgesic Recent | | Inpatient Visit SummaryDate Facility City State Type Diagnoses or Chief Complaint Aug | | 2018 [facility] Pleural Effusion Chronic | | pulmonary [facility] | | Hypoxemia Personal history of other diseases of urinary system Fever, unspecified | | Pleural effusion, not elsewhere classified End stage renal disease Dependence | | on renal dialysis Anemia in chronic kidney disease Pulmonary hypertension, | | unspecified Chronic right heart failure [facility] | | General Medicine Acute respiratory distress Chest pain, unspecified Pleural | | effusion, not elsewhere classified Other ascites Dependence on renal dialysis | | Hyperkalemia Other disorders of phosphorus metabolism End stage renal disease | | Other specified personal risk factors, not elsewhere classified Acute systolic | | (congestive) heart failure Care TeamProvider [facility] Type Phone Fax Service Dates [facility], | | TIEN Gallagher MD Internal Medicine May 28, 2018 - [facility] | | has registered at the [facility] Emergency Department For more | | information visit: | | [id number] PLEASE | | NOTE: 1. Any care [...] or completeness of information | | provided.2019 [employer]. - [email or web address] | | Personal history of other diseases of urinary system | | | |July 18, [address] [facility] [place] Emergency | | Personal history of nicotine dependence | | Other specified respiratory disorders | | Cough | | Radiographic dye allergy status | | Allergy status to narcotic agent status | | Chronic kidney disease, unspecified | | Allergy status to other drugs, medicaments and biological substances status | | | |Jun 19, 2018 [facility] [place] Emergency | | Other chest pain | | End stage renal disease | | Dependence on renal dialysis | | Personal history of nicotine dependence | | Fluid overload, unspecified | | Heart failure, unspecified | | strand and binder controller (current) use of opiate analgesic | | Allergy status to other drugs, medicaments and biological substances status | | Radiographic dye allergy status | | Other jail (current) drug therapy | | | |Jun 12, 2018 [facility] [place] Emergency | | Shortness of breath | | Fluid overload, unspecified | | Hyperkalemia | | Radiographic dye allergy status | | Allergy status to narcotic agent status | | Other jail (current) drug therapy | | Allergy status to other drugs, medicaments and biological substances status | | Unspecified asthma, uncomplicated | | Dependence on renal dialysis | | Chronic kidney disease, unspecified | | | |Jun 11, 2018 [facility] [place] Emergency | | Chronic pulmonary edema | | Shortness of breath | | Radiographic dye allergy status | | Personal history of nicotine dependence | | Other jail (current) drug therapy | | jail (current) use of opiate analgesic | | | | | | | |Recent Inpatient Visit Summary | |Date Facility City State Type Diagnoses or Chief Complaint | |Aug 20, 2018 [facility] [place] General Medicine | | Pleural Effusion | | Chronic pulmonary edema | | | |July 18, 2018 [facility] | | Hypoxemia | | Personal history of other diseases of urinary system | | Fever, unspecified | | Pleural effusion, not elsewhere classified | | End stage renal disease | | Dependence on renal dialysis | | Anemia in chronic kidney disease | | Pulmonary hypertension, unspecified | | Chronic right heart failure | | | |May 26, 2018 [facility] | | Acute respiratory [...] 28, 2018 - Current | | | |[facility] Portal | |This patient has registered at the [facility] Emergency Department | |For more information visit: [id number] [id number] | |PLEASE NOTE: | | 1. Any [...] of information provided. | | | |2019 [employer]. - [email or web address] | + + + +---------+ + + [...] +------+-------+ + | MEDICARE | MEDICA | [id number] | | | [address] | | | RE | | | | [place] [address] | | | IP-OP | | | | | + +--------+ +------+-------+ + | MEDICAID | JEWEL | [id number] | | | [address] | | | [place] | | | | [place] | | | [place] | | | | [address] | | | [employer] | | | | | + +--------+ [...] Self | [birth year] Home: | [address] | | | al/Fam | | 1994 | [phone] [place] | | | [place] | | | [phone] | [phone] | + +--------+ +--------+ + +
--- OUTSIDE RECORDS SUMMARY | ~2019-01-02 | XMS | Encounter Summary ---
Demographics + + + | Address | [address] | | | [place] [address] | + + + | Home Phone [...] | | | | | [place] [address] | | + + + + + | Thania Mallory | ECON | [address] | | | | | [place] [address] | | + + + + + | Deidra Weldon | ECON | [address] | | | | | [place] | | | | | [address] | | + + + + + Care Team Providers + +------+ + | Care Silo Tender Name | Role | Phone | [...] | | | | | ANNALISA Hoffmann [facility] | Labadie Caro Chan | | | | | [place], [place] | [place], [place] | | | | | [address] | [address] | | | | | [phone] | [phone] | | | | | | | [...] Denise | | | | | | [place], [place] | | | | | | [address] | | | | | | [phone] | | | | | | | | +--------+ + + + + documented as of this encounter Visit Diagnoses Not on filedocumented in this encounter"
--- OUTSIDE RECORDS SUMMARY | ~2019-01-02 | XMS | Encounter Summary ---
Demographics + + + | Address | [address] | | | [place] [address] | + + + | Home Phone [...] | | | | | [place] [address] | | + + + + + | Thania Mallory | ECON | [address] | | | | | [place] [address] | | + + + + + | Deidra Weldon | ECON | [address] | | | | | [place] | | | | | [address] | | + + + + + Care Team Providers + +------+ + | Care Sr Community Manager Name | Role | Phone | [...] Shun | | | | | ANNALISA [facility] | [facility] | | | | | Rd [place], [place] | [place], [place] | | | | | [address] | [address] | | | | | [phone] | | | +--------+ + + + [...] | | | | | | [place], [place] | | | | | | [address] | | | | | | [phone] | | | | | | | | +--------+ + + + + documented as of this encounter Visit Diagnoses Not on filedocumented in this encounter"
--- OUTSIDE RECORDS SUMMARY | ~2019-01-02 | XMS | Encounter Summary ---
Demographics + + + | Address | [address] | | | [place] [address] | + + + | Home Phone [...] | | | | | [place] [address] | | + + + + + | Thania Mallory | ECON | [address] | | | | | [place] [address] | | + + + + + | Deidra Weldon | ECON | [address] | | | | | [place] | | | | | [address] | | + + + + + Care Team Providers + +------+ + | Care Network Systems Operator Name | Role | Phone [...] | | | | | [place], | [place], [place] | | | | | | [place] | [address] | | | | | | [address] | Phone: | | | | | | Phone: | [phone] | | | | | | [phone] | | | | | | | Fax: | | | | | | | [phone] | | +--------+--------+ + + + + Encounter Details +--------+---------+ + + + | Date | Type | Department | Care Team | Description | +--------+---------+ + + + | 11/16/ | Office | Specialty Clinics | Sudhakar Joy | 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 Have your friend call Brittney about [phone] Sudhakar Joy MD documented in this encounter [...] [facility] Mail code [facility] [place], [place] [address] documented in this encounter Plan of Treatment +--------+ + + + + | Date | Type | Specialty | Care Team | Description | +--------+ + + + + | 05/04/ | Hospital | Adult Acute Care | El Starr MD | | | 2022 | Encounter | | [address] | | | | | | [place], [place] | | | | | | [address] | | | | | | [phone] | | | | | | | [...]
--- OUTSIDE RECORDS SUMMARY | ~2019-01-02 | XMS | Encounter Summary ---
Demographics + + + | Address | [address] | | | [place] [address] | + + + | Home Phone [...] | | | | | [place] [address] | | + + + + + | Thania Mallory | ECON | [address] | | | | | [place] [address] | | + + + + + | Deidra Weldon | ECON | [address] | | | | | [place] | | | | | [address] | | + + + + + Care Team Providers + +------+ + | Care Slide Machine Tender Name | Role | Phone [...] | | | | | [place], | [place], [place] | | | | | | [place] | [address] | | | | | | [address] | Phone: | | | | | | Phone: | [phone] | | | | | | [phone] | | | | | | | Fax: | | | | | | | [phone] | | +--------+--------+ + + + + Encounter Details +--------+---------+ + + + | Date | Type | Department | Care Team | Description | +--------+---------+ + + + | 05/11/ | Office | Specialty Clinics | Sudhakar Joy | HSP | | 2016 | Visit | at [facility] [address] | [address], [address] | ([place] | | | | [address] | [address] | purpura) nephritis | | | | Mailcode: [facility] | [place], [place] | (Primary Dx); Anemia | | | | [place] | [address] | of chronic kidney | | | | [place], [place] | [phone] | failure, stage 5 | | | | [address] | | ([facility]) | | | | [phone] | | | +--------+---------+ + + + [...] MD [facility] [address] Mail code [facility] [place], [place] [address] Estrella Brennan MA - 05/12/2015 10:48 AM [...] [place] | | | | | | [address] | | | | | | [phone] | | | | | | | [...]
--- OUTSIDE RECORDS SUMMARY | ~2019-01-02 | XMS | Encounter Summary ---
Demographics + + + | Address | [address] | | | [place] [address] | + + + | Home Phone [...] | | | | | [place] [address] | | + + + + + | Thania Mallory | ECON | [address] | | | | | [place] [address] | | + + + + + | Deidra Weldon | ECON | [address] | | | | | [place] | | | | | [address] | | + + + + + Care Team Providers + +------+ + | Care Stamp Presser Name | Role | Phone | + +------+ + | Shahid Camargo MD | PCP | | + +------+ + Reason for Visit +--------+ + | Reason | Comments | +--------+ + | Other | Requested [id number] | +--------+ + Encounter Details +--------+ + + + + | Date | Type | Department | Care Team | Description | +--------+ + + + + | 11/15/ | Telephone | Transplant | Jesus [place], | Other (Requested | | 2012 | | Coordinators [address] | [address] | [id number]) | | | | ANNALISA Hoffmann [facility] | [facility] | | | | | [place]in [place], [place] | [place], [place] | | | | | [address] | [address] | | | | | [phone] | [phone] | | | | | | | [...] Denise | | | | | | [place], [place] | | | | | | [address] | | | | | | [phone] | | | | | | | | +--------+ + + + + documented as of this encounter Visit Diagnoses Not on filedocumented in this encounter"
--- OUTSIDE RECORDS SUMMARY | ~2019-01-02 | XMS | Encounter Summary ---
Demographics + + + | Address | [address] | | | [place] [address] | + + + | Home Phone [...] | | | | | [place] [address] | | + + + + + | Thania Mallory | ECON | [address] | | | | | [place] [address] | | + + + + + | Deidra Weldon | ECON | [address] | | | | | [place] | | | | | [address] | | + + + + + Care Team Providers + +------+ + | Care Safety Deposit Supervisor Name | Role | Phone | [...] | | | | [facility] | [place], [place] | | | | | [address] | [address] | | | | | [address] Mailcode: | [phone] | | | | | [address] | | | | | | [place], [place] | | | | | | [address] | | | | | | [phone] | | | +--------+ + + + [...] Denise | | | | | | [place], [place] | | | | | | [address] | | | | | | [phone] | | | | | | | | +--------+ + + + + documented as of this encounter Visit Diagnoses Not on filedocumented in this encounter"
--- OUTSIDE RECORDS SUMMARY | ~2019-01-02 | XMS | Encounter Summary ---
Demographics + + + | Address | [address] [place] [address] | | | [place] [address] | + + + | Home Phone [...] | | | | | [place] [address] | | + + + + + | Thania Mallory | ECON | [address] | | | | | [place] [address] | | + + + + + | Deidra Weldon | ECON | [address] | | | | | [place] | | | | | [address] | | + + + + + Care Team Providers + +------+ + | Care Mail Clerks Supervisor Name | Role | Phone [...] Coordinators [address] | RN [address] [facility] | | | | | ANNAL[address] [facility] | [facility] | | | | | Rd [place], [place] | [place], [place] | | | | | [address] | [address] | | | | | [phone] | | | +--------+ + + + [...] Denise | | | | | | [place], [place] | | | | | | [address] | | | | | | [phone] | | | | | | | | +--------+ + + + + documented as of this encounter Visit Diagnoses Not on filedocumented in this encounter"
--- OUTSIDE RECORDS SUMMARY | ~2019-01-02 | XMS | Encounter Summary ---
Demographics + + + | Address | [address] | | | [place] [address] | + + + | Home Phone [...] | | | | | [place] [address] | | + + + + + | Thania Mallory | ECON | [address] | | | | | [place] [address] | | + + + + + | Deidra Weldon | ECON | [address] | | | | | [place] | | | | | [address] | | + + + + + Care Team Providers + +------+ + | Care Vault Service Mechanic Name | Role | Phone [...] ANNALISA Hoffmann [facility] | [facility] | | | | | Rd [place], [place] | [place], [place] | | | | | [address] | [address] | | | | | [phone] | | | +--------+ + + + [...] Denise | | | | | | [place] | | | | | | [address] | | | | | | [phone] | | | | | | | | +--------+ + + + + documented as of this encounter Visit Diagnoses Not on filedocumented in this encounter"
--- OUTSIDE RECORDS SUMMARY | ~2019-01-02 | XMS | Encounter Summary ---
Demographics + + + | Address | [address] | | | [place] [address] [...] | | | | | [place] [address] | | + + + + + | Thania Mallory | ECON | [address] | | | | | [place] [address] | | + + + + + | Deidra Weldon | ECON | [address] | | | | | [place] | | | | | [address] | | + + + + + Care Team Providers + +------+ + | Care Run Boat Operator Name | Role | Phone | [...] | | | [place], | [place] [address] | | | | | [place] [address] | [phone] | | | | | | | [...] Denise | | | | | | [place], [place] | | | | | | [address] | | | | | | [phone] | | | | | | | [...] [facility] - | [address] | [place] [address] | | | IMMUNOGENETICS/TRANS | [address] | | | | [facility] | | | | + + + + + documented in this encounter Visit Diagnoses Not on filedocumented in this encounter"
--- OUTSIDE RECORDS SUMMARY | ~2019-01-02 | XMS | Encounter Summary ---
Demographics + + + | Address | [address] | | | [place] [address] | + + + | Home Phone [...] | | | | | [place] [address] | | + + + + + | Thania Mallory | ECON | [address] | | | | | [place] [address] | | + + + + + | Deidra Weldon | ECON | [address] | | | | | [place] | | | | | [address] | | + + + + + Care Team Providers + +------+ + | Care Inspector Eyeglass Frames Name | Role | Phone | + [...] ANNALISA Hoffmann [facility] | [facility] | | | | | Rd [place], [place] | [place], [place] | | | | | [address] | [address] | | | | | [phone] | | | +--------+ + + + [...] | | | | | | [place], [place] | | | | | | [address] | | | | | | [phone] | | | | | | | | +--------+ + + + + documented as of this encounter Visit Diagnoses Not on filedocumented in this encounter"
--- OUTSIDE RECORDS SUMMARY | ~2019-01-02 | XMS | Encounter Summary ---
Demographics + + + | Address | [address] | | | [place] [address] | + + + | Home Phone [...] | | | | | [place] [address] | | + + + + + | Thania Mallory | ECON | [address] | | | | | [place] [address] | | + + + + + | Deidra Weldon | ECON | [address] | | | | | [place] | | | | | [address] | | + + + + + Care Team Providers + +------+ + | Care Binder Roller Name | Role | Phone | + +------+ + | Shahid Camargo MD | PCP | | + +------+ + Encounter Details +--------+------+ + + + | Date | Type | Department | Care Team | Description | +--------+------+ + + + | 12/20/ | Lab | [facility] Center at [facility] | | Allergic purpura- | | 2012 | | 7th Floor [address] | | MEDIC[address] | | | | [address] | | (Primary Dx) | | | | [place], [place] | | | | | | [address] | | | | | | [phone] | | | +--------+------+ + + + [...] Denise | | | | | | [place], [place] | | | | | | [address] | | | | | | [phone] | | | | | | | [...] - | [address] | [place], [place] | | | IMMUNOGENETICS/TRANS | [address] [...] - | [address] | [place], [place] | | | IMMUNOGENETICS/TRANS | [address] [...] [facility] - | [address] | [place] [address] | | | IMMUNOGENETICS/TRANS | [address] [...] [facility] - | [address] | [place] [address] | | | IMMUNOGENETICS/TRANS | [address] [...] + + | [facility] - | [address] | [place] [address] | | | IMMUNOGENETICS/TRANS | [address] [...] - | [address] | [place], [place] | | | IMMUNOGENETICS/TRANS | [address] [...] - | [address] | [place], [place] | | | IMMUNOGENETICS/TRANS | [address] [...] [facility] - | [address] | [place] [address] | | | IMMUNOGENETICS/TRANS | [address] [...] + + | [facility] - | [address] | [place] [address] | | | IMMUNOGENETICS/TRANS | [address] [...] + + + + + | [facility] | [address] | [place] [address] | | | SERVICES, | [address] [...] [facility] | [address] | [place] [address] | | | SERVICES, | [address] [...] + + + + + | [facility] | [address] | [place] [address] | | | SERVICES, CORE | PARK [...] UNIV | | | | Pippa Sauceda, [facility] | | PTH - INTFC | | | | [address] | | | | | | [phone].aruplab. | | | | | | annalee, [...] [facility] | [address] | [place], [place] | | | UNIV PTH - INTFC | | [address] | | + + + + + [...] + + | [facility] | [address] | [place] [address] | | | SERVICESHOMERO | [address] [...] | + + + + + | [employer] [facility] | [address] | [place] [address] | | | SERVICES, CORE | PARK [...] + | [facility] - | [address] | [place] [address] | | | [place] | | | [...] + + + + + + | NON-SQUAMARLEEN | Jennifer (A) | None /hpf | [...] [facility] | [address] | [place] [address] | | | SERVICES, CORE | PARK [...] (H) | 2.5 - 6.2 mg/dL | [facility] | | | PLASMA | | [...] [facility] | [address] | [place] [address] | | | SERVICES, CORE | PARK [...] + + + + + | [facility] | [address] | [place] [address] | | | SERVICES, CORE | PARK [...] - | | | | | | [facility] | | + + + + + + + + | Specimen | + + | Blood - Blood | + + + + + + + | Performing | Address | City/State/Zipcode | Phone Number | | Organization | | | | + + + + + | [place] [facility] - | [address] | [place] [address] | | | [place] | | | [...] at: | | | | | | http://www.cdc.gov/nchstp/tb/pubs/tbfactssheets/878939.htm | | | Test performed by: [facility] [address] | [address] [place] [address] | | + + + + + [...] [facility] | [address] | [place] [address] | | | SERVICES, SPECIAL | PARK [...] gene at | DIAGNOSTIC | | nucleotide [address]. Please note that this assay only detects the | LABORATORIES | | [id number] point mutation and therefore a normal result [...] has been analyzed for the presence of [id number] | | | mutation in the prothrombin [...] | | Heterozygotes for the common prothrombin [id number] mutation constitute | | | approximately 2% of the normal white population (1,2). | | | References: 1.) Poort et al. Blood 88, 8733-5208 (1995). 2.) Ricardo | | | et al. Circulation 99, 999-1004 (1998). 3.) Al Montalvo, and | | | Press. Amer J Clin Path 155, 439-47 (2000). This test was | | | developed and its performance characteristics determined by the [facility] | | | [facility]. It has [...] Institute | | | Diagnostic [facility] is a [...] + + + + + | [facility] | [address] | [place] [address] | | | DIAGNOSTIC | [address] [...] [facility] | [address] | [place] [address] | | | SERVICES, HOMERO | PARK [...] + + + + + | [facility] | [address] | [place] [address] | | | SERVICES, CORE | LONG [...] [facility] | [address] | [place] [address] | | | SERVICES, CORE | PARK [...] [facility] | [address] | [place] [address] | | | HOMERO LAN | LONG [...] | | | | | | [place], [place] [address] | | | | | | [phone].aruplab. | | | | | | Faisal [...] [facility] | [address] | [place], [place] | | | UNIV PTH - INTFC | | [address] | | + + + + + [...] [facility] | [address] | [place] [address] | | | SERVICES, SPECIAL | PARK [...] C PCR, | Undetected | IU/mL | [facility] | | | QUANT | | | [...] + + + + | [facility] | [address] | [place] [address] | | | DIAGNOSTIC | [address] [...] + | [facility] - | [address] | [place] [address] | | | [place] | | | [...] + | [facility] - | [address] | [place] [address] | | | [place] | | | [...] + | [facility] - | [address] | [place] [address] | | | [place] | | | [...] + | [facility] - | [address] | [place] [address] | | | [place] | | | | + + + [...] less......Not | | | | | | Hqhhusgm48.0-21.9 | | | | | | U/mL.........Indetermina [...] available | | | | | | atwww.[employer]/eb | | | | | | vdx.Performed by [facility] | | | | | | [facility],[address] | | | | | | [place], [facility] [address] | | | | | | [phone].Genolab. | | | | | | Faisal [...] [facility] | [address] | [place], [place] | | | UNIV PTH - INTFC | | [address] | | + + + + + [...] + | [facility] - | [address] | [place] [address] | | | [facility] [...] [facility] | [address] | [place] [address] | | | SERVICES, CORE | PARK [...] by | | | | | | [email or web address] | | | | | | Pipp[address] Sauceda, [facility] | | | | | | [address] | | | | | | [phone].Genolab. 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
--- OUTSIDE RECORDS SUMMARY | ~2019-01-02 | XMS | Encounter Summary ---
Demographics + + + | Address | [address] | | | [place] [address] | + + + | Home Phone [...] + | Author | [facility] | | | and Josephana | + + + | Organization | [facility] | | [...] Team Providers + +------+ + | Care Mop Handle Assembler Name | Role | Phone | + +------+ + | Jonathan Alonso MD | PCP | | + +------+ + Encounter Details +--------+ + + + + | Date | Type | Department | Care Team | Description | +--------+ + + + + | 10/17/ | Hospital | [facility] | Nikita, | ESRD (end stage | | 2019 - | Encounter | [facility] | MD Naresh [address] | renal disease) | | | | CARE FLOOR [address] | ([facility]); Dilated | | 10/22/ | | [address] | [place] [address] | cardiomyopathy | | 2019 | | [place], [place] | [phone] | ([facility]); | | | | [address] | | Non-cardiogenic | | | | [phone] | Gerber Pearson MD | pulmonary edema; | | | | | [address] | Anemia in ESRD | | | | | [place] [address] | (end-stage renal | | | | | [phone] | disease) ([facility]); | | | [...] failure | | | | | | ([facility]); At high [...] might be different from t chacha coleman. [facility] Service: Hospitalist Physician Discharge Summary Patient [...] is to follow up with her regular supervisor metal cans, Dr. Hurtado. DISCHARGE DIAGNOSES: 1. End-stage renal [...] Left; Surgeon: Blake Chavarria MD ; Location: [facility] MAIN OR AV FISTULA REPAIR Left 03/07/2014 Procedure: AV FISTULA - GRAFT REPAIR/REVISION; Surgeon: Rik Simon MD; Location: [facility] IN OR; Service: Vascular; Laterality: Left; biopsy of kidney age 10 DIALYSIS FISTULA CREATION 04/08/2014 Procedure: DIALYSIS CATHETER - INSERTION; Surgeon: Rik Simon MD; Location: [facility] MAIN OR ; Service: Vascular; Laterality: N/A; tunneled catheter.br hemodialysis catheter KIDNEY BIOPSY Left 2003 OTHER SURGICAL HISTORY LAPAROSCOPIC PERITONEAL DIALYSIS CATHETER INSERTION - x2 OTHER SURGICAL HISTORY Right 07/2013 LAPAROSCOPIC PERITONEAL DIALYSIS CATHETER INSERTION - current dialysis access MWF dialysis OTHER SURGICAL HISTORY Left 06/24/2014 SUPERFICIALIZATION OF AV FISTULA - Procedure: AV FISTULA - SUPERFICIALIZATION; Surgeon: Emanuel Simon MD; Location: [facility] MAIN OR; Service: Vascular; Laterality: Left; OTHER SURGICAL HISTORY Left 04/08/2014 AV FISTULA PLACEMENT - Procedure: AV FISTULA; Surgeon: Rik Simon MD; Location: [facility]; Service: Vascular; Laterality: Left; cephalic OTHER SURGICAL HISTORY Left 03/07/2014 DECLOT GRAFT - Procedure: GRAFT - DECLOT; Surgeon: Rik Simon MD; Location: [facility] OR ; Service: Vascular; Laterality: [...] have: Continued coughing Fever Date Last Reviewed: 02/04/201619997418-8673 [employer]. [address] [place] [address]. All righ ts reserved. This information is [...] by your healthcare provider Date Last Reviewed: 12/05/201519997626-5265 [employer]. [address] [place] [address]. All righ ts reserved. This information is [...] + + +---------+ + + | B Mbyrezc-Q-Slpjb | Take 1 tablet by | | [...] I have discussed the case with the BUSINESS DEVELOPMENT PROFESSIONAL. I agree with his findings & documentation. [...] Antonio Carrasco MD - 10/21/2018 1500 PDT [facility] Service: NEPHROLOGY Progress Note Dara Weldon 23 y.o. [id number] female Jonathan Alonso MD Hospital Day: [...] Left; Surgeon: Blake Chavarria MD ; Location: [facility] MAIN OR AV FISTULA REPAIR Left 03/07/2014 Procedure: AV FISTULA - GRAFT REPAIR/REVISION; Surgeon: Rik Simon MD; Location: [facility]; Service: Vascular; Laterality: Left; biopsy of kidney age 10 DIALYSIS FISTULA CREATION 04/08/2014 Procedure: DIALYSIS CATHETER - INSERTION; Surgeon: Rik Simon MD; Location: [facility] MAIN OR ; Service: Vascular; Laterality: N/A; tunneled catheter.br hemodialysis catheter KIDNEY BIOPSY Left 2003 OTHER SURGICAL HISTORY LAPAROSCOPIC PERITONEAL DIALYSIS CATHETER INSERTION - x2 OTHER SURGICAL HISTORY Right 07/2013 LAPAROSCOPIC PERITONEAL DIALYSIS CATHETER INSERTION - current dialysis access MWF dialysis OTHER SURGICAL HISTORY Left 06/24/2014 SUPERFICIALIZATION OF AV FISTULA - Procedure: AV FISTULA - SUPERFICIALIZATION; Surgeon: Emanuel Simon MD; Location: [facility] MAIN OR; Service: Vascular; Laterality: Left; OTHER SURGICAL HISTORY Left 04/08/2014 AV FISTULA PLACEMENT - Procedure: AV FISTULA; Surgeon: Rik Simon MD; Location: [facility]; Service: Vascular; Laterality: Left; cephalic OTHER SURGICAL HISTORY Left 03/07/2014 DECLOT GRAFT - Procedure: GRAFT - DECLOT; Surgeon: Rik Simon MD; Location: [facility] MAIN OR ; Service: Vascular; [...] MR, severe TR.severe pulmonary hyperten arturo Chest x-tju-occfgiqoiicc with pulmonary edema and large right pleural [...] earlier and charting completed later Dictation software, [employer], used which may contain error for similar sounding words even af ter review. Personal communication requested for any clarification. Portions of my notes may have been carried over for continuity of care.Electronically ananth d by Antonio Benjamin MD at 10/21/2018 15:11 PDTVinGerber pastrana MD - 10/21/2018 0718 PDTFormat ting of this note might be different from the original. [facility] Adult Hospitalist Progress Note Hospital Day: [...] BUN 90 on admission -History of a Fairchance Schnlein purpura -Last hemodialysis approximately 2 weeks [...] Gerber Fernandez MD - 10/20/2018 0909 PDT [facility] Adult Hospitalist Progress Note Hospital Day: [...] BUN 90 on admission -History of a Fairchance Schnlein purpura -Last hemodialysis approximately 2 weeks [...] E | | | | | | [place] [address] | | | | | | [phone] | | | | | | | [...] [facility] | | | | performed at [facility], [address] | | LABORATORY | | | | [address], | | | | | | [place] [address] | | | | + + + + + + + + | Specimen | + + | Blood | + + + + + + + | Performing | Address | City/State/Zipcode | Phone Number | | Organization | | | | + + + + + | [facility] | [address] | [place] [address] | [phone] | + + + + + Basic [...] 7 (L)Comment: GFR <60: | >60 | [facility] | | | GFR | [...] W | | | | | | [facility], | | | | | | [place] [address] | | | | + + + + + + + + | Specimen | + + | Blood | + + + + + + + | Performing | Address | City/State/Zipcode | Phone Number | | Organization | | | | + + + + + | [facility] | [address] | [place] [address] | [phone] | + + + + + Basic [...] 11 (L)Comment: GFR <60: | >60 | [facility] | | | GFR | [...] W | | | | | | [facility], | | | | | | [place] [address] | | | | + + + + + + + + | Specimen | + + | Blood | + + + + + + + | Performing | Address | City/State/Zipcode | Phone Number | | Organization | | | | + + + + + | [facility] | [address] | [place] [address] | [phone] | + + + + + Basic [...] | | | | | performed at [facility];[address] | | | | | | [facility];[place], [place] | | | | | | [address] | | | | + + + + + + + + | Specimen | + + | Blood | + + + + + + + | Performing | Address | City/State/Zipcode | Phone Number | | Organization | | | | + + + + + | [facility] | [address] | [place] [address] | [phone] | + + + + + documented in this encounter Visit Diagnoses + + | Diagnosis | + + | Non-cardiogenic pulmonary edema - Primary Pulmonary congestion and hypostasis | + + | ESRD (end stage renal disease) ([facility]) End stage renal [...] | | | for platelets less than [address], | | + +---+ | | | [...]
--- OUTSIDE RECORDS SUMMARY | ~2019-01-02 | XMS | Encounter Summary ---
Demographics + + + | Address | [address] | | | [place] [address] | + + + | Home Phone [...] | | | | | [place] [address] | | + + + + + | Thania Mallory | ECON | [address] | | | | | [place] [address] | | + + + + + | Deidra [place]don | ECON | [address] | | | | | [place] | | | | | [address] | | + + + + + Care Team Providers + +------+ + | Care Lining Folder Name | Role | Phone | [...] | Summary | | | | [address] [facility] | [facility] | | | | | Rd [place], [place] | [place], [place] | | | | | [address] | [address] | | | | | [phone] | | | +--------+ + + + [...] [facility] | | | | | | [address] | | | | | | [phone] | | | | | | | | +--------+ + + + + documented as of this encounter Visit Diagnoses Not on filedocumented in this encounter"
--- OUTSIDE RECORDS SUMMARY | ~2019-01-02 | XMS | Encounter Summary ---
Demographics + + + | Address | [address] | | | [place] [address] | + + + | Home Phone [...] | | | | | [place] [address] | | + + + + + | Thania Mallory | ECON | [address] | | | | | [place] [address] | | + + + + + | Deidra Weldon | ECON | [address] | | | | | [place] | | | | | [address] | | + + + + + Care Team Providers + +------+ + | Care Rolling Machine Tender Name | Role | Phone [...] Transplant | | | | ANNALISA [place] | [address] | Evaluation | | | | Rd [place], [place] | [place], [place] | | | | | [address] | [address] | | | | | [phone] | | | +--------+ + + + [...] Denise | | | | | | [place] | | | | | | [address] | | | | | | [phone] | | | | | | | | +--------+ + + + + documented as of this encounter Visit Diagnoses Not on filedocumented in this encounter"
--- OUTSIDE RECORDS SUMMARY | ~2019-01-02 | XMS | Encounter Summary ---
Demographics + + + | Address | [address] | | | [place] [address] | + + + | Home Phone [...] | | | | | [place] [address] | | + + + + + | Thania Mallory | ECON | [address] | | | | | [place] [address] | | + + + + + | Deidra Weldon | ECON | [address] | | | | | [place] | | | | | [address] | | + + + + + Care Team Providers + +------+ + | Care Cadmium Burner Name | Role | Phone | [...] (pt | | | | ANNALISA Hoffmann [facility] | [facility] [address] | potential | | | | Rd [place], [place] | [place], [place] | donor/checking in | | | | [address] | [address] | with SW) | | | | [phone] | | | +--------+ + + + [...] [facility] | | | | | | [address] | | | | | | [phone] | | | | | | | | +--------+ + + + + documented as of this encounter Visit Diagnoses Not on filedocumented in this encounter"
--- OUTSIDE RECORDS SUMMARY | ~2019-01-02 | XMS | Encounter Summary ---
Demographics + + + | Address | [address] | | | [place] [address] | + + + | Home Phone [...] | | | | | [place] [address] | | + + + + + | Thania Mallory | ECON | [address] | | | | | [place] [address] | | + + + + + | Deidra Weldon | ECON | [address] | | | | | [place] | | | | | [address] | | + + + + + Care Team Providers + +------+ + | Care Blind Installer Name | Role | Phone | [...] to change | | | | Rd [place], [place] | [place], [place] | clinic appt) | | | | [address] | [address] | | | | | [phone] | | | +--------+ + + + [...] [facility] | | | | | | [address] | | | | | | [phone] | | | | | | | | +--------+ + + + + documented as of this encounter Visit Diagnoses Not on filedocumented in this encounter"
--- OUTSIDE RECORDS SUMMARY | ~2019-01-02 | XMS | Encounter Summary ---
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
--- OUTSIDE RECORDS SUMMARY | ~2019-01-02 | XMS | Encounter Summary ---
Demographics + + + | Address | [address] | | | [place] [address] | + + + | Home Phone [...] | | | | | [place] [address] | | + + + + + | Thania Mallory | ECON | [address] | | | | | [place] [address] | | + + + + + | Deidra Weldon | ECON | [address] | | | | | [place] | | | | | [address] | | + + + + + Care Team Providers + +------+ + | Care Tool Planner Name | Role | Phone | [...] | | | | | TRANSTHORACI | [place], [place] | [id number] | | | | | C | [address] | [place] | | | | | ECHOCARDIOGR | Phone: | [place], [place] | | | | | AM, PEDS | [phone] | [address] | | | | | | Fax: | Phone: | | | | | | [phone] | [phone] | | | | | | | Fax: | | | | | | | [phone] | +--------+--------+ + + + + Reason [...] | | | | | TRANSTHORACI | [place], [place] | [id number] | | | | | C | [address] | [place] | | | | | ECHOCARDIOGR | Phone: | [place], [place] | | | | | AM, PEDS | [phone] | [address] | | | | | | Fax: | Phone: | | | | | | [phone] | [phone] | | | | | | | Fax: | | | | | | | [phone] | +--------+--------+ + + + + Encounter Details +--------+ + + + + | Date | Type | Department | Care Team | Description | +--------+ + + + + | 12/20/ | Hospital | Pediatric Echo Lab | | | | 2012 | Encounter | at [facility] [address] | | | | | | Elias [place] | | | | | | Mailcode: [id number] | | | | | | [place] | | | | | | [place], [place] | | | | | | [address] | | | | | | [phone] | | | +--------+ + + + [...] Denise | | | | | | [place], [place] | | | | | | [address] | | | | | | [phone] | | | | | | | [...]
--- OUTSIDE RECORDS SUMMARY | ~2019-01-02 | XMS | Encounter Summary ---
Demographics + + + | Address | [address] | | | [place] [address] | + + + | Home Phone [...] Team Providers + +------+ + | Care Beam Racker Name | Role | Phone | [...] + + | 12/10/ | Hospital | [facility] | Rayray Powers MD | Sepsis, due to | | 2019 - | Encounter | [facility] | [address] | unspecified | | | | CARE FLO[address] | [place], [place] | organism, | | 12/14/ | | [address] | [address] | unspecified whether | | 2019 | | [place], [place] | [phone] | acute organ | | | | [address] | | dysfunction present | | | | [phone] | Lee Harris MD | ([facility]) (Primary Dx); | | | | | [address] | Pneumonia of right | | | | | [place] [address] | lower lobe due to | | | | | [phone] | infectious organism | | | | | | ([facility]); Hypoxia; | | | | | Jw Neri, DO [address] | Hypervolemia, | | | | | [address] | unspecified | | | | | [place] [address] | hypervolemia type; | | | | | [phone] | ESRD on dialysis | | | | | | ([facility]); Hyperkalemia; | | | | | | Acute on chronic | | | | | | respiratory failure | | | | | | with hypoxia and | | | | | | hypercapnia ([facility]); | | | | | | Acute respiratory | | | | | | failure with hypoxia | | | | | | ([facility]); Anemia in | | | | | | ESRD (end-stage | | | | | | renal disease) | | | | | | ([facility]); At high risk | | | | | | for electrolyte | | | | | | imbalance; Awaiting | | | | | | organ transplant | | | | | | status; 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 | | | | | | failure ([facility]); | | | | | | Chronic right-sided | | | | | | heart failure ([facility]); | | | | | | 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 | | | | | | ([facility]); ESRD on | | | | | | hemodialysis ([facility]); | | | | | | History [...] | | | | | | function ([facility]); | | | | | | Moderate to severe | | | | | | pulmonary | | | | | | hypertension ([facility]); | | | | | | Low grade fever; | | | | | | Noncompliance of | | | | | | patient with renal | | | | | | dialysis ([facility]); | | | | | | Pleural [...] might be different from the or iginal. [facility]: Hospitalist Physician Discharge [...] bacteria 12/12/2018 Clotted dialysis access ([facility]) 2014 Congestive heart failure (HCC) ESRD (end stage renal disease) ([facility]) HSP (Henoch-Schonlein purpura) nephritis ([facility]) 1988 Hypertension Pericardial effusion without cardiac tamponade 11/07/2018 Past Surgical History: Procedure Laterality Date ABDOMEN SURGERY AV FISTULA REPAIR 02/24/2014 LEFT Radical Cephalic Fistula Creation; Laterality: Left; Surgeon: Blake Chavarria MD ; Location: [facility] MAIN OR AV FISTULA REPAIR Left 03/07/2014 Procedure: AV FISTULA - GRAFT REPAIR/REVISION; Surgeon: Rik Simon MD; Location: [facility] OR; Service: Vascular; Laterality: Left; biopsy of kidney age 10 DIALYSIS FISTULA CREATION 04/08/2014 Procedure: DIALYSIS CATHETER - INSERTION; Surgeon: Rik Simon MD; [facility]: [facility] [...] MD; Location: [facility]; Service: Vascular; Laterality: Left; cephalic OTHER SURGICAL HISTORY Left 03/07/2014 DECLOT GRAFT - Procedure: GRAFT - DECLOT; Surgeon: Rik Simon MD; Location: [facility] ; Service: Vascular; Laterality: Left; peritoneal catheter [...] hours. No results for input(s): PHART, PO2ART, OBJ4UBP, W4EFQMDW, BEART in the last 168 hours. No results for input(s): APTT, INR, PTT in the last 168 hours. No results for input(s): TSH in the last 168 hours. Invalid input(s): T3FREE, FREET4 No results for input(s): TROPONINT in the last 168 hours. Invalid input(s): CKTOTAL, TROPONINI, CKMBINDEX Disposition: home No discharge procedures on file. Follow up: Jonathan Alonso MD [address] [place] [address] Schedule an appointment as soon as possible for a visit hospital follow up Jorje Camp, DO [address], [address] [place] [address] Schedule an appointment as soon as possible [...] sent through Care Everywhere.Bacteremia, Leti pected (Adult) (Bruneian)documented in this encounter Medications at Time of [...] | | | renal disease) ([facility]) | protocol | | | | | [...] might be diff erent from the original. [facility]: Infectious Diseases Progress [...] Procedure Component Value Units Date/Time Culture, Blood [[id number]] Collected: 12/12/18 1943 Order Status: Canceled Lab Status: No result Specimen: Peripheral Blood Culture, Body Fluid Sterile [[id number]] Order Status: No result Lab Status: No result Specimen: Body Fluid from Pleural Fluid, Right Culture, Blood [[id number]] Collected: 12/12/18 0502 Order Status: Completed Lab Status: Preliminary result Updated: 12/13/18 1324 Specimen: Peripheral Blood Special Requests RWRIST Special Requests Testing performed at [facility];[address] [place] [address] RESULT NO GROWTH AT THIS TIME RESULT Testing performed at [facility], [address] [place] [address] Comment: Testing performed at [facility], [address] [place] [address] 088[address] Influenza A and B RNA, NAAT [[id number]] Collected: 12/11/18 1556 Order Status: Completed Lab Status: Final result Updated: 12/11/18 1619 Influenza A NEGATIVE Influenza B NEGATIVE Comment: Testing performed by Molecular Methodology Testing performed at [facility];[address] [place] [address] 09069 Flu Swab Collection [[id number]] Collected: 12/11/18 1546 Order Status: Completed Lab Status: Final result Updated: 12/11/18 1549 Specimen: Tissue from Nasopharynx Collection SPECIMEN RECEIVED IN LAB Comment: Testing performed at [facility];[address] [place] [address] 41933 Culture, Blood [[id number]] Collected: 12/11/18 0615 Order Status: Completed Lab Status: Preliminary result Updated: 12/12/18 1134 Specimen: Peripheral Blood Special Requests RAC Special Requests Testing performed at [facility];[address] [place] [address] 07374 RESULT NO GROWTH AT THIS TIME RESULT Testing performed at [facility], [address] [place] [address] Comment: Testing performed at [facility], [address] [place] [address] 17399 Culture, Blood [[id number]] (Abnormal) Collected: 12/10/18 2343 Order Status: Completed Lab Status: Final result Updated: 12/13/18 1009 Specimen: Blood from Line Gram Stain Result -- GRAM POSITIVE COCCI IN CLUSTERS SEEN IN AEROBIC BOTTLE SEEN IN ANAEROBIC BOTTLE Gram Stain Result -- SMEAR RESULTS CALLED TO AND READ BACK BY: Brigitte CARTER 6RDerick @ 3571 12/11/18 CDS RESULT STAPHYLOCOCCUS SPECIES, COAGULASE NEGATIVE RESULT GROWTH IN TWO OF TWO BOTTLES RESULT -- TIME TO DETECTION: 0.69 DAYS RESULT POSSIBLE CONTAMINANT, CLINICAL CORRELATION REQUIRED. RESULT Testing performed at [facility], [address] [place] [address] Comment: Testing performed at [facility], [address] [place] [address] 10868 Microbiology Results (72 hrs) Procedure Component Value Units Date/Time Culture, Blood [[id number]] Collected: 12/12/18 0502 Order Status: Completed Lab Status: Preliminary result Updated: 12/13/18 1324 Specimen: Peripheral Blood Special Requests RWRIST Special Requests Testing performed at [facility];[address] [place] [address] 10380 RESULT NO GROWTH AT THIS TIME RESULT Testing performed at [facility], [address] [place] [address] Comment: Testing performed at [facility], [address] [place] [address]4797 Influenza A and B RNA, NAAT [[id number]] Collected: 12/11/18 1556 Order Status: Completed Lab Status: Final result Updated: 12/11/18 1619 Influenza A NEGATIVE Influenza B NEGATIVE Comment: Testing performed by Molecular Methodology Testing performed at [facility];[address] [place] [address] 07546 Flu Swab Collection [[id number]] Collected: 12/11/18 1546 Order Status: Completed Lab Status: Final result Updated: 12/11/18 1549 Specimen: Tissue from Nasopharynx Collection SPECIMEN RECEIVED IN LAB Comment: Testing performed at [facility];[address] [place] [address] 30769 IMAGING: No new images for review today. [...] with fair air entry on the left corntey e. Wheezing noted. CV: RRR, no MRGs; [...] was completed later after rounds. Dictation software, Coupang, was used which may contain error for [...] Jw Santos, DO - 019 1442 PDT [facility]: Hospitalist Progress Note Pt: Dara Weldon AGE/SEX: 23 y.o. female : 1995 ROOM: [facility]/6612-01 TODAY'S DATE: 12/13/2018 Hospital Day: LOS: [...] PASP is 73 mmHg - Baseline weight [id number]. In acute exacerbation - HD per nephrology [...] Reno Saeed MD - 12/13/2018 1132 PDT [facility]: Infectious Diseases [...] Procedure Component Value Units Date/Time Culture, Blood [[id number]] Collected: 12/12/18 194 Order Status: Canceled Lab Status: No result Specimen: Peripheral Blood Culture, Body Fluid Sterile [[id number]] Order Status: No result Lab Status: No result Specimen: Body Fluid from Pleural Fluid, Right Culture, Blood [[id number]] Collected: 12/12/18 0502 Order Status: Sent Lab Status: In process Updated: 12/12/18 1005 Specimen: Peripheral Blood Influenza A and B RNA, NAAT [[id number]] Collected: 12/11/18 1556 Order Status: Completed Lab Status: Final result Updated: 12/11/18 1619 Influenza A NEGATIVE Influenza B NEGATIVE Comment: Testing performed by Molecular Methodology Testing performed at [facility];[address] [place] [address]1831 Flu Swab Collection [[id number]] Collected: 12/11/18 1546 Order Status: Completed Lab Status: Final result Updated: 12/11/18 1549 Specimen: Tissue from Nasopharynx Collection SPECIMEN RECEIVED IN LAB Comment: Testing performed at [facility];[address] [place] [address];[place] [address] Culture, Blood [[id number]] Collected: 12/11/18 0615 Order Status: Completed Lab Status: Preliminary result Updated: 12/12/18 1134 Specimen: Peripheral Blood Special Requests RAC Special Requests Testing performed at [facility];[address] [place] [address] RESULT NO GROWTH AT THIS TIME RESULT Testing performed at [facility], [address] [place] [address] Comment: Testing performed at [facility], [address] [place] [address]73 Culture, Blood [[id number]] (Abnormal) Collected: 12/10/18 2343 Order Status: Completed [...] CLINICAL CORRELATION REQUIRED. RESULT Testing performed at [facility], [address] [place] [address]755 Comment: Testing performed at [address] [address] Microbiology Results (72 hrs) Procedure Component Value Units Date/Time Culture, Blood [[id number]] Collected: 12/12/18 0502 Order Status: Sent Lab Status: In process Updated: 12/12/18 1005 Specimen: Peripheral Blood Influenza A and B RNA, NAAT [[id number]] Collected: 12/11/18 1556 Order Status: Completed Lab Status: Final result Updated: 12/11/18 1619 Influenza A NEGATIVE Influenza B NEGATIVE Comment: Testing performed by Molecular Methodology Testing performed at [facility];[address] [place] [address] 46956 Flu Swab Collection [[id number]] Collected: 12/11/18 1546 Order Status: Completed Lab Status: Final result Updated: 12/11/18 1549 Specimen: Tissue from Nasopharynx Collection SPECIMEN RECEIVED IN LAB Comment: Testing performed at [facility];[address] [place] [address] Culture, Blood [[id number]] Collected: 12/11/18 0615 Order Status: Completed Lab Status: Preliminary result Updated: 12/12/18 1134 Specimen: Peripheral Blood Special Requests RAC Special Requests Testing performed at [facility];[address] [place] [address] 80522 RESULT NO GROWTH AT THIS TIME RESULT Testing performed at [address] [address] Comment: Testing performed at [facility], [address] [place] [address] [place] [address] Culture, Blood [[id number]] (Abnormal) Collected: 12/10/18 2343 Order Status: Completed Lab Status: Final result Updated: 12/13/18 1009 Specimen: Blood from Line Gram Stain Result -- GRAM POSITIVE COCCI IN CLUSTERS SEEN IN AEROBIC BOTTLE SEEN IN ANAEROBIC BOTTLE Gram Stain Result -- SMEAR RESULTS CALLED TO AND READ BACK BY: Brigitte CARTER 6RP @ 5825 12/11/18 CDS RESULT STAPHYLOCOCCUS SPECIES, COAGULASE NEGATIVE RESULT GROWTH IN TWO OF TWO BOTTLES RESULT -- TIME TO DETECTION: 0.69 DAYS RESULT POSSIBLE CONTAMINANT, CLINICAL CORRELATION REQUIRED. RESULT Testing performed at [facility], [address] [place] [address] 86668 Comment: Testing performed at [facility], [address] [place] [address]24 IMAGING: No new images for review today. [...] Reno Thacker MD, MPH Infectious Diseases 12/13/18 Taitana King PharmD - 12/13/2018 1022 PDTFormatting of [...] was completed later after rounds. Dictation software, Coupang, was used which may contain error for [...] (12/12/18 0827) Vida Whittaker RPH - 11/2018 0155 PDTClinical Pharmacy Note: Vancomycin Day 1 Referring [...] 12/12/2018 13:33 Lee Aguirre MD - 12/12/2018 0872 PDT [facility] Hospitalist Progress [...] Jimenes Ma, MD 8:29 12/12/2018 aylor Mcnair [facility] - 10/2018 1946 PDT Clinical [...] [address] | | | | | | [place] [address] | | | | | | [phone] | | | | | | | [...] + + | CT CHEST ABDOMEN | NIOCENCIO | 12/11/2018 | | Results for this [...] R?MRN: | | | | | | [id number] | | | [id number] | | | riteri | | | [...] | | | St. | | | Calcium | | | y | | | [...] | | | St. | | | Calcium | | | y | | | [...] | | | St. | | | Calcium | | | y | | | [...] | | | St | | | Calcium | | | y | | | [...] St | | | | | | Calcium | | | y | | | [...] | | | St. | | | Calcium | | | y | | | [...] | | | St. | | | Calcium | | | y H. | | [...] | | | St. | | | Calcium | | | y H. | | [...] | | | St. | | | Calcium | | | y H. | | [...] | | | St. | | | Calcium | | | y H. | | [...] | | | St. | | | Calcium | | | y H. | | [...] | | | St. | | | Calcium | | | y H. | | [...] | | | St. | | | Calcium | | | y H. | | [...] | | | MD | | | [employer] | | | al | | | [...] | | | 4-070e | | | [id number] | | | 2b | | | [...] + | Billie Gupta MD 12/14/2018 9:54 [facility] | | | [facility] Center Hemo-Dialysis Procedure [...] QB 450 AP | | | -200 Hydrator 170 Constitutional: pt appears without | | [...] | | | | | | at [facility], [address] | | | | | | [facility], | | | | | | [place] [address] | | | | | |Testing performed at [facility], [address] [facility], [place] [address] | | | | | | | | | | + + +--- + + + + + | Specimen | + + | Blood | + + + + + + + | Performing | Address | City/State/Zipcode | Phone Number | | Organization | | | | + + + + + | [facility] | [address] | [place] [address] | [phone] | + + + + + Basic [...] 9.4 | 8.5 - 10.5 | [facility] | | | | | mg/dL | LABORATORY | | + + + + + + | Estimated | 7 (L)Comment: GFR <60: | >60 | [facility] | | | GFR | [...] Hospital, | | | | | | [place] [address] | | | | + + + + + + + + | Specimen | + + | Blood | + + + + + + + | Performing | Address | City/State/Zipcode | Phone Number | | Organization | | | | + + + + + | [facility] | [address] | [place] [address] | [phone] | + + + + + XR [...] (L)Comment: GFR <60: | >60 | [facility] | | | GFR | [...] | | | | | | MDRD [facility] traceable | | | | | | equation.Testing | | | | | | performed at [facility], [address] | | | | | | [facility], | | | | | | [place] [address] | | | | + + + + + + + + | Specimen | + + | Blood | + + + + + + + | Performing | Address | City/State/Zipcode | Phone Number | | Organization | | | | + + + + + | [facility] | [address] | [place] [address] | [phone] | + + + + + US Guided Thoracentesis wo Chest Tube (12/12/2018 13:53 PDT) + + | Specimen | + + | | + + + + + | Impressions | Performed At | + + + | IMPRESSION: Documentation of intra procedural ultrasound | [facility] | | guidance. See procedure note for details. Signed by: | | | lEiza Echols, Fely Sign Date/Time: 12/12/2018 5:27 PM [...] (H)Comment: Testing | <0.5 mg/dL | [facility] | | | | performed at [facility], [address] | | LABORATORY | | | | [address], | | | | | | [place] [address] | | | | + + + + + + + + | Specimen | + + | Blood | + + + + + + + | Performing | Address | City/State/Zipcode | Phone Number | | Organization | | | | + + + + + | [facility] | [address] | [place] [address] | [phone] | + + + + + Culture, [...] LABORATORY | | | | Blvd;[place] [address] | | | | + + + + + + | RESULT | NO GROWTH 6 DAYS | | [facility] | | | | | | LABORATORY | | + + + + + + | RESULT | Testing performed at | | [facility] | | | | [facility], [address] | | LABORATORY | | | | [place] | | | | | | [address]Dmdmpce: Testing | | | | | | performed at [facility], [address] | | | | | [address], [place] | | | | | | [address] | | | | + + + + + + + + | Specimen | + + | Blood | + + + + + + + | Performing | Address | City/State/Zipcode | Phone Number | | Organization | | | | + + + + + | [facility] | [address] | [place] [address] | [phone] | + + + + + CBC [...] [facility] | | | | performed at [facility], [address] | | LABORATORY | | | | [facility], | | | | | | [place] [address] | | | | + + + + + + + + | Specimen | + + | Blood | + + + + + + + | Performing | Address | City/State/Zipcode | Phone Number | | Organization | | | | + + + + + | [facility] | [address] | [place] [address] | [phone] | + + + + + Basic [...] (L)Comment: GFR <60: | >60 | [facility] | | | GFR | [...] Hospital, | | | | | | [place] [address] | | | | + + + + + + + + | Specimen | + + | Blood | + + + + + + + | Performing | Address | City/State/Zipcode | Phone Number | | Organization | | | | + + + + + | [facility] | [address] | [place] [address] | [phone] | + + + + + Basic [...] (L)Comment: GFR <60: | >60 | [facility] | | | GFR | [...] | | | | | | MDRD [facility] traceable | | | | | | equation.Testing | | | | | | performed at [facility] | | | | | | [facility];[place], [place] | | | | | | [address] | | | | + + + + + + + + | Specimen | + + | Blood | + + + + + + + | Performing | Address | City/State/Zipcode | Phone Number | | Organization | | | | + + + + + | [facility] | [address] | [place] [address] | [phone] | + + + + + Influenza [...] | | | | | | [address];[place], [place] | | | | | | [address] | | | | + + + + + + + + | Specimen | + + | | + + + + + + + | Performing | Address | City/State/Zipcode | Phone Number | | Organization | | | | + + + + + | [facility] | [address] | [place] [address] | [phone] | + + + + + FLU SWAB COLLECTION (12/11/2018 15:46 PDT) + + + + + + | Component | Value | Ref Range | Performed | Pathologist | | | | | At | Signature | + + + + + + | Collection | SPECIMEN RECEIVED IN | | [facility] | | | | LABComment: Testing | | LABORATORY | | | | performed at [facility];[address] | | | | | | [address];[place] | | | | | | [address] | | | | + + + + + + + + | Specimen | + + | Tissue | + + + + + + + | Performing | Address | City/State/Zipcode | Phone Number | | Organization | | | | + + + + + | [facility] | [address] | [place] [address] | [phone] | + + + + + POC [...] | LABORATORY | | | | [address];[place], [place] | | | | | | [address] | | | | + + + + + + + + | Specimen | + + | | + + + + + + + | Performing | Address | City/State/Zipcode | Phone Number | | Organization | | | | + + + + + | [facility] | [address] | [place] [address] | [phone] | + + + + + ECG [...] (500), | | | | | | loan expeditor Daniela Luciano | | | | [...] [place] | | | | | | [address] | | | | + + + + + + + + | Specimen | + + | Blood | + + + + + + + | Performing | Address | City/State/Zipcode | Phone Number | | Organization | | | | + + + + + | [facility] | [address] | [place] [address] | [phone] | + + + + + Basic [...] LABORATORY | | | | M ON [id number] [phone] BY | | | | [...] | | | | | | MDRD [facility] traceable | | | | | | equation.Testing | | | | | | performed at [facility];[address] | | | | | | [facility];[place], [place] | | | | | | [address] | | | | + + + + + + + + | Specimen | + + | Blood | + + + + + + + | Performing | Address | City/State/Zipcode | Phone Number | | Organization | | | | + + + + + | [facility] | [address] | [place] [address] | [phone] | + + + + + Culture, [...] | Testing performed at | | [facility] | | | Requests | [facility];[address] | | LABORATORY | | | | [address];[place] [address] | | | | + + + + + + | RESULT | NO GROWTH 6 DAYS | | [facility] | | | | | | LABORATORY | | + + + + + + | RESULT | Testing performed at | | [facility] | | | | [facility], [address] | | LABORATORY | | | | [place] | | | | | | [address]Vpnkege: Testing | | | | | | performed at [facility], [address] | | | | | | [place] | | | | | | [address] | | | | + + + + + + + + | Specimen | + + | Blood | + + + + + + + | Performing | Address | City/State/Zipcode | Phone Number | | Organization | | | | + + + + + | [facility] | [address] | [place] [address] | [phone] | + + + + + CT [...] | | | | | | [address];[place] | | | | | | [address] | | | | + + + + + + + + | Specimen | + + | | + + + + + + + | Performing | Address | City/State/Zipcode | Phone Number | | Organization | | | | + + + + + | [facility] | [address] | [place] [address] | [phone] | + + + + + Lactic [...] [place] | | | | | | [address] | | | | + + + + + + + + | Specimen | + + | Blood | + + + + + + + | Performing | Address | City/State/Zipcode | Phone Number | | Organization | | | | + + + + + | [facility] | [address] | [place] [address] | [phone] | + + + + + Lactic [...] | LABORATORY | | | | [address];[place], [place] | | | | | | [address] | | | | + + + + + + + + | Specimen | + + | Blood | + + + + + + + | Performing | Address | City/State/Zipcode | Phone Number | | Organization | | | | + + + + + | [facility] | [address] | [place] [address] | [phone] | + + + + + Culture, [...] LABORATORY | | | | BY:Brigitte CARTER [facility] @ 1855 | | | [...] | Testing performed at | | [facility] | | | | [facility], [address] [facility] | | LABORATORY | | | | [place], [place] | | | | | | [address]Tgmsyul: Testing | | | | | | performed at [facility], [address] | | | | | | [facility], | | | | | | [place] [address] | | | | + + + + + + + + | Specimen | + + | Blood | + + + + + + + | Performing | Address | City/State/Zipcode | Phone Number | | Organization | | | | + + + + + | [facility] | [address] | [place] [address] | [phone] | + + + + + XR [...] | | [facility];[address] [facility] | | | | | | [facility];[place] [address] | | | | + + + + + + + + | Specimen | + + | Blood | + + + + + + + | Performing | Address | City/State/Zipcode | Phone Number | | Organization | | | | + + + + + | [facility] | [address] | [place] [address] | [phone] | + + + + + [facility]time [...] | | | | | | [address];[place], [place] | | | | | | [address] | | | | + + + + + + + + | Specimen | + + | Blood | + + + + + + + | Performing | Address | City/State/Zipcode | Phone Number | | Organization | | | | + + + + + | [facility] | [address] | [place] [address] | [phone] | + + + + + CBC [...] [address] | | | | | | [address];[place] [address] | | | | | |NORMAL PLT MORPH | | | | | |Testing performed at [facility];[address] [facility];[place] [address] | | | | | | | | | | + + + + + + + + | Specimen | + + | Blood | + + + + + + + | Performing | Address | City/State/Zipcode | Phone Number | | Organization | | | | + + + + + | [facility] | [address] | [place] [address] | [phone] | + + + + + Phosphorus (12/10/2018 23:02 PDT) + + + + + + | Component | Value | Ref Range | Performed | Pathologist | | | | | At | Signature | + + + + + + | Phosphorus | 8.9 (H)Comment: Testing | 2.3 - 4.8 mg/dL | [facility] | | | | performed at [facility];8 | | LABORATORY | | | | [address];[place] | | | | | | [address] | | | | + + + + + + + + | Specimen | + + | Blood | + + + + + + + | Performing | Address | City/State/Zipcode | Phone Number | | Organization | | | | + + + + + | [facility] | [address] | [place] [address] | [phone] | + + + + + Magnesium (12/10/2018 23:02 PDT) + + + + + + | Component | Value | Ref Range | Performed | Pathologist | | | | | At | Signature | + + + + + + | Magnesium | 2.2Comment: Testing | 1.7 - 2.4 mg/dL | [facility] | | | | performed at [facility];[address] | | LABORATORY | | | | [address];[place], [place] | | | | | | [address] | | | | + + + + + + + + | Specimen | + + | Blood | + + + + + + + | Performing | Address | City/State/Zipcode | Phone Number | | Organization | | | | + + + + + | [facility] | [address] | [place] [address] | [phone] | + + + + + Comprehensive [...] | 10 - 65 U/L | [facility] | | | | | | LABORATORY | | + + + + + + | Estimated | 3 (L)Comment: GFR <60: | >60 | [facility] | | | GFR | [...] [place];[address] | | | | | | [facility];[place], [place] | | | | | | [address] | | | | + + + + + + + + | Specimen | + + | Blood | + + + + + + + | Performing | Address | City/State/Zipcode | Phone Number | | Organization | | | | + + + + + | [facility] | [address] | [place] [address] | [phone] | + + + + + ECG [...] | | | | | ONLY, -COMPUTER ([id number]), | | | | | | loan expeditor Daniela Luciano | | | | [...] | | | | | Intravenous, ONCE, [facility] 12/13/18 | | PDT | | [...] PRN, Hypotension, | | | Starting [facility] 12/11/18 at 0937, | | [...] - PRN, Hypotension, | | | Starting [facility] 12/12/18 at 0734, | | | Treatment [...]
--- OUTSIDE RECORDS SUMMARY | ~2019-01-02 | XMS | Encounter Summary ---
Demographics + + + | Address | [address] | | | [place] [address] | + + + | Home Phone [...] | | | | | [place] [address] | | + + + + + | Thania Mallory | ECON | [address] | | | | | [place] [address] | | + + + + + | Deidra Weldon | ECON | [address] | | | | | [place] | | | | | [address] | | + + + + + Care Team Providers + +------+ + | Care Field Crop Farming Supervisor Name | Role | Phone | [...] | | Nephrology at | MD Emanuel [address] | | | | | [place] | [address] | | | | | [facility] | [place], [place] | | | | | [address] | [address] | | | | | Caro [place] Mailcode: | [phone] | | | | | [address] | | | | | | [place], [place] | | | | | | [address] | | | | | | [phone] | | | +--------+ + + + [...] Denise | | | | | | [place], [place] | | | | | | [address] | | | | | | [phone] | | | | | | | [...] | [address] | [place] [address] | [phone] | | HOSPITAL | | | | [...] [address] | [place] [address] | [phone] | | HOSPITAL | | | | [...] [address] | [place] [address] | [phone] | | HOSPITAL | | | | [...] | [address] | [place] [address] | [phone] | | HOSPITAL | | | | [...] | [address] | [place] [address] | [phone] | | HOSPITAL | | | | [...] | [address] | [place] [address] | [phone] | | HOSPITAL | | | | + + + + + documented in this encounter Visit Diagnoses Not on filedocumented in this encounter"
--- OUTSIDE RECORDS SUMMARY | ~2019-01-02 | XMS | Encounter Summary ---
Demographics + + + | Address | [address] | | | [place] [address] | + + + | Home Phone [...] | | | | | [place] [address] | | + + + + + | Thania Mallory | ECON | [address] | | | | | [place] [address] | | + + + + + | Deidra Weldon | ECON | [address] | | | | | [place] | | | | | [address] | | + + + + + Care Team Providers + +------+ + | Care Clearing Supervisor Name | Role | Phone | [...] | lab/Provider | | | | [place], [place] | [place], [place] | updated) | | | | [address] | [address] | | | | | [phone] | [phone] | | | | | | | [...] | | | | | | [place], [place] | | | | | | [address] | | | | | | [phone] | | | | | | | | +--------+ + + + + documented as of this encounter Visit Diagnoses Not on filedocumented in this encounter"
--- OUTSIDE RECORDS SUMMARY | ~2019-01-02 | XMS | Encounter Summary ---
Demographics + + + | Address | [address] | | | [place] [address] | + + + | Home Phone [...] | | | | | [place] [address] | | + + + + + | Thania Mallory | ECON | [address] | | | | | [place] [address] | | + + + + + | Deidra Weldon | ECON | [address] | | | | | [place] | | | | | [address] | | + + + + + Care Team Providers + +------+ + | Care Measurement Advisor Name | Role | Phone | [...] | Nephrology at | MD Emanuel [address] [facility] | Requested ([facility]) | | | | [place] | [address] | | | | | [facility] | [place], [place] | | | | | [address] | [address] | | | | | Caro Chan Mailcode: | [phone] | | | | | [address] | | | | | | [place], [place] | | | | | | [address] | | | | | | [phone] | | | +--------+ + + + [...] Denise | | | | | | [place] | | | | | | [address] | | | | | | [phone] | | | | | | | | +--------+ + + + + documented as of this encounter Visit Diagnoses Not on filedocumented in this encounter"
--- OUTSIDE RECORDS SUMMARY | ~2019-01-02 | XMS | Encounter Summary ---
Demographics + + + | Address | [address] | | | [place] [address] | + + + | Home Phone [...] | | | | | [place] [address] | | + + + + + | Thania Mallory | ECON | [address] | | | | | [place] [address] | | + + + + + | Deidra Weldon | ECON | [address] | | | | | [place] | | | | | [address] | | + + + + + Care Team Providers + +------+ + | Care Marketing Account Executive Name | Role | Phone [...] Mailcode: | | | | | | [address] | [address] | | | | | | [address] | [place] | | | | | | [place], | [place], [place] | | | | | | [place] | [address] | | | | | | [address] | Phone: | | | | | | Phone: | [phone] | | | | | | [phone] | | | | | | | Fax: | | | | | | | [phone] | | +--------+--------+ + + + + Encounter Details +--------+---------+ + + + | Date | Type | Department | Care Team | Description | +--------+---------+ + + + | 05/24/ | Office | Specialty Clinics | Sudhakar Joy | [facility] | | 2017 | Visit | at [facility] [address] | DMD [address] | ([place] | | | | [address] | [address] | purpura) nephritis | | | | Mailcode: [facility] | [place], [place] | (Primary Dx); Anemia | | | | [place] | [address]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 Her adult american board certified orthotist could refer her to adult transplant when [...] [facility] Mail code [facility] [place], [place] [id number] documented in this encounter Plan of Treatment +--------+ + + + + | Date | Type | Specialty | Care Team | Description | +--------+ + + + + | 05/04/ | Hospital | Adult Acute Care | El Starr MD | | | 2022 | Encounter | | [address] | | | | | | [place], [place] | | | | | | [address] | | | | | | [phone] | | | | | | | [...]
--- OUTSIDE RECORDS SUMMARY | ~2019-01-02 | XMS | Encounter Summary ---
Demographics + + + | Address | [address] | | | [place] [address] [...] | | | | | [place] [address] | | + + + + + | Thania Mallory | ECON | [address] | | | | | [place] [address] | | + + + + + | Deidra Weldon | ECON | [address] | | | | | [place] | | | | | [address] | | + + + + + Care Team Providers + +------+ + | Care Pipe Fitter Apprentice Name | Role | Phone | [...] SW | | | | [address] [facility] | [address] | follow-up on | | | | Rd [place], [place] | [place] | [place] | | | | [address] | [address] | care plan) | | | | [phone] | | | +--------+ + + + [...] | | | | | | [place] | | | | | | [address] | | | | | | [phone] | | | | | | | | +--------+ + + + + documented as of this encounter Visit Diagnoses Not on filedocumented in this encounter"
--- OUTSIDE RECORDS SUMMARY | ~2019-01-02 | XMS | Encounter Summary ---
Demographics + + + | Address | [address] | | | [place] [address] | + + + | Home Phone [...] | | | | | [place] [address] | | + + + + + | Thania Mallory | ECON | [address] | | | | | [place] [address] | | + + + + + | Deidra Weldon | ECON | [address] | | | | | [place] | | | | | [address] | | + + + + + Care Team Providers + +------+ + | Care Geophysical Laboratory Chief Name | Role | Phone | [...] | [address] [facility] | [facility] | | | | | Rd [place], [place] | [place], [place] | | | | | [address] | [address] | | | | | [phone] | | | +--------+ + + + [...] [facility] | | | | | | [address] | | | | | | [phone] | | | | | | | | +--------+ + + + + documented as of this encounter Visit Diagnoses Not on filedocumented in this encounter"
--- OUTSIDE RECORDS SUMMARY | ~2019-01-02 | XMS | Encounter Summary ---
Demographics + + + | Address | [address] | | | [place] [address] | + + + | Home Phone [...] | Author | [facility] (Historical as of | | | 10-20-18) | + + + | Organization | [facility] (Historical as of | | | 10-20-18) [...] Team Providers + +------+ + | Care Conche Loader And Unloader Name | Role | Phone | [...] | | Internal | Diagnoses | | [facility] 4th | | | | Medicine | SOB | | [address] | | | | | (shortness | | [address] | | | | | of breath) | | [address] | | | | | Pleural | | [place], [place] | | | | | effusion on | | [address] Phone: | | | | | right ESRD | | [phone] | | | | | needing | | Fax: | | | | | dialysis | | [phone] | | | | | (HCC) | | | +--------+--------+ + + + + Encounter Details +--------+ + + + + | Date | Type | Department | Care Team | Description | +--------+ + + + + | 10/17/ | Hospital | [facility] | Vivek Teran, | SOB (shortness of | | 2019 - | Encounter | [facility] | MD [address] | breath) (Primary | | | | [address] | [place] [address] | Dx); Pleural | | 10/20/ | | [address] | [phone] | effusion on right; | | 2019 | | [place] [address] | | ESRD needing | | | | [phone] | Nikita, | dialysis ([facility]); End | | | | | MD [address]resh [address] | stage renal disease | | | | | [address] | (HCC) | | | | | [place] [address] | | | | | | [phone] | | | | | | | | | | | | Gerber Pearson MD | | | | | | [address] | | | | | | [place] [address] | | | | | | [phone] | | | | | | | [...] note may be different from the original. [facility] Service: NEPHROLOGY Progress Note Dara Weldon 23 y.o. [id number] female TIEN NICHOLSON 23-year-old female with [...] AV FISTULA; Surgeon: Rik Simon MD; Location: [facility] OR; Service: Vascula r; Laterality: Left; cephalic AV FISTULA REPAIR Left 03/07/2014 Procedure: AV FISTULA - GRAFT REPAIR/REVISION; Surgeon: Rik Simon MD; Location: [facility]; Service: Vascular; Laterality: Left; DECLOT GRAFT Left 03/07/2014 Procedure: GRAFT - DECLOT; Surgeon: Rik Simon MD; Location: [facility]; Service: Vas cular; Laterality: Left; DIALYSIS FISTULA CREATION N/A 04/08/2014 Procedure: DIALYSIS CATHETER - INSERTION; Surgeon: Rik Simon MD; Location: [facility] ; Service: Vascular; Laterality: N/A; tunneled catheter LAPAROSCOPIC PERITONEAL DIALYSIS CATHETER INSERTION x2 LAPAROSCOPIC PERITONEAL DIALYSIS CATHETER INSERTION Right 07/2013 current dialysis access MWF dialysis RENAL BIOPSY Left 2003 SUPERFICIALIZATION OF AV FISTULA Left 06/24/2014 Procedure: AV FISTULA - SUPERFICIALIZATION; Surgeon: Rik Simon MD; Location: [facility]; Service: Vascular; Laterality: Left; No [...] Social History Narrative She lives in [facility]. She does not work. She has [...] ral space is punctured with an 5 Emirati [employer] centesis catheter. Fluid is aspirated without complication. [...] 1 VIEW (10/17/2018); CHEST TWO V IEWS [id number] (10/17/2018); FINDINGS: Compared to the prior examination [...] MR, severe TR.severe pulmonary hypertens ion Chest i-wii-fkeclwejgkhn with pulmonary edema and large right pleural [...] earlier and charting completed later Dictation software, Qinging Weekly Flower Delivery, used which may contain error for similar sounding words even af ter review. Personal communication requested for any clarification. Gerber Pearson MD - 10/19/2018 7:48 AM PDTFormatting of this note may be different from the original. [facility] Service: Hospitalist Progress Note Hospital Day: LOS: 2 days Post-Op Day: * No surgery found * SUBJECTIVE Patient Summary: Admission H&P Dr. Houge:" The patient is 23 y.o. female with significant past medical history of end-stage renal dise ase on hemodialysis Monday, Monday and Monday (nephrology Dr Hinson), history of [place] Sc honlein purpura, recurrent bilateral pleural effusions requiring thoracentesis, combined sys tolic and diastolic heart failure with ejection fraction of 20-25% who presents with dyspnea Patient was recently discharged from [facility] on 08/23/2018. For full note, please see discha rge summary from hospitalist. In summary, the patient was admitted for noncardiogenic pulmo nary edema after thoracentesis. At that point, prior to admission, she was seen [facility] at [facility] in [place] on 08/21 where she underwent right th [...] BUN 90 on admission -History of a [place] Schnlein purpura -Last hemodialysis approximately 2 weeks [...] may be diffe rent from the original. [facility] Service: Hospitalist Progress Note Hospital Day: [...] with dyspnea Patient was recently discharged from [facility] on 08/23/2018. For full note, please see discha rge summary from hospitalist. In summary, the patient was admitted for noncardiogenic pulmo nary edema after thoracentesis. At that point, prior to admission, she was seen at the [facility] at [facility] in [place] on 08/21 where she underwent right th [...] BUN 90 on admission -History of a [place] Schnlein purpura -Last hemodialysis approximately 2 weeks [...] note may be different from the original. [facility] Service: NEPHROLOGY Progress Note Dara Weldon 23 y.o. [id number] female [facility] Day: LOS: [...] AV FISTULA; Surgeon: Rik Simon MD; Location: [facility] OR; Service: Vascula r; Laterality: Left; cephalic AV FISTULA REPAIR Left 03/07/2014 Procedure: AV FISTULA - GRAFT REPAIR/REVISION; Surgeon: Rik Simon MD; Location: [facility]; Service: Vascular; Laterality: Left; DECLOT GRAFT Left 03/07/2014 Procedure: GRAFT - DECLOT; Surgeon: Rik Simon MD; Location: [facility]; Service: Vas cular; Laterality: Left; DIALYSIS FISTULA CREATION N/A 04/08/2014 Procedure: DIALYSIS CATHETER - INSERTION; Surgeon: Rik Simon MD; Location: [facility] ; Service: Vascular; Laterality: N/A; tunneled catheter LAPAROSCOPIC PERITONEAL DIALYSIS CATHETER INSERTION x2 LAPAROSCOPIC PERITONEAL DIALYSIS CATHETER INSERTION Right 07/2013 current dialysis access MWF dialysis RENAL BIOPSY Left 2003 SUPERFICIALIZATION OF AV FISTULA Left 06/24/2014 Procedure: AV FISTULA - SUPERFICIALIZATION; Surgeon: Rik Simon MD; Location: [facility]; Service: Vascular; Laterality: Left; Prescriptions [...] Social History Narrative She lives in [facility]. She does not work. She has [...] QTC Calculation (Bezet) 469 ms Calculated P [place] 46 degrees Calculated R [place] 127 degrees Calculated T [place] 94 degrees Diagnosis Normal sinus rhythm Right [...] MR, severe TR.severe pulmonary hypertens ion Chest d-pje-dllszdnldbou with pulmonary edema and large right pleural [...] earlier and charting completed later Dictation software, Qinging Weekly Flower Delivery, used which may contain error for similar sounding words even af ter review. Personal communication requested for any clarification. Gerber Pearson MD - 10/17/2018 7:17 AM PDTFormatting of this note may be different from the original. [facility] Service: Hospitalist Progress Note Hospital Day: [...] with dyspnea Patient was recently discharged from [facility] on 08/23/2018. For full note, please see discha rge summary from hospitalist. In summary, the patient was admitted for noncardiogenic pulmo nary edema after thoracentesis. At that point, prior to admission, she was seen at the [facility] at [facility] in [place] on 08/21 where she underwent right th [...] the case over the phone with patient's strip picker Dr. Mahmood, recommends medi oly management and [...] creatinine 14, BUN 90 -History of a [place] Schnlein purpura -Last hemodialysis approximately 2 weeks [...] | | | | | performed at [facility], [address] | | | | | [facility], | | | | | [place] [address] | | | + + + + + + + | Specimen | + + | Blood | + + + + + + + | Performing | Address | City/State/Zipcode | Phone Number | | Organization | | | | + + + + + | [facility] | [address] | [place] [address] | [phone] | | LABORATORY | Blvd[address] | | [...] CHEST 1 VIEW (10/17/2018); CHEST TWO VIEWS [id number] | | | (10/17/2018); FINDINGS: Compared to [...] VIEW | | (10/17/2018); CHEST TWO VIEWS 44677 (10/17/2018); | | FINDINGS: | | Compared [...] [facility] | [address] | [place] [address] | | + + + + + [...] pleural space is punctured with an 5 Emirati [employer] | | | catheter. Fluid is aspirated [...] pleural space is punctured with an 5 Emirati Yueh | | centesis catheter. Fluid is [...] SURI JUDE | [address] | [facility] [place] [address] | | + + + + [...] + + + + | Calculated P [place] | 46 | degrees | [facility] | + + + + + | Calculated R [place] | 127 | degrees | [facility] | + + + + + | Calculated T [place] | 94 | degrees | [facility] | + + + + + | Diagnosis | Normal sinus rhythmRight | | [facility] | | | axis | | [...] | + + + + + | [facility] | [address] | [place] [address] | | + + + + + [...] the | | | | | [facility] traceable | | | | | equation.Testing | | | | | performed at [facility], [address] | | | | | [facility], | | | | | [place] [address] | | | + + + + + + + | Specimen | + + | Blood | + + + + + + + | Performing | Address | City/State/Zipcode | Phone Number | | Organization | | | | + + + + + | [facility] | [address] [place] [address] | [place] [address] | [phone] | | LABORATORY | [address]vd[address] | | | + + + + + Magnesium (10/18/2018 5:44 AM) + + + + + | Component | Value | Ref Range | Performed At | + + + + + | MAGNESIUM | 2.4Comment: Testing | 1.7 - 2.4 mg/dL | [facility] | | | performed at [facility], [address] | | LABORATORY | | | [address], | | | | | [place] [address] | | | + + + + + + + | Specimen | + + | Blood | + + + + + + + | Performing | Address | City/State/Zipcode | Phone Number | | Organization | | | | + + + + + | [facility] | [address] | [place] [address] | [phone] | | LABORATORY | [address] | | [...] | DIFF TYPE | AUTOMATED | | [facility] | | | | | LABORATORY | [...] [address] | | | | | [facility], | | | | | [place] [address] | | | | |Testing performed at [facility], [address] [facility], [place] [address] | | | | | | | | + + + + + + + | Specimen | + + | Blood | + + + + + + + | Performing | Address | City/State/Zipcode | Phone Number | | Organization | | | | + + + + + | [facility] | [address] | [place] [address] | [phone] | | LABORATORY | [address] | | | + + + + + Troponin I (10/17/2018 6:05 PM) + + + + + | Component | Value | Ref Range | Performed At | + + + + + | TROPONIN I | 0.175 (H)Comment: 0.04 | 0.00 - 0.04 ng/mL | [facility] | | | ng/mL or | [...] | | | [facility];[address] [place] [address] | | | | | [facility];[place] [address] | | | + + + + + + + | Specimen | + + | Blood | + + + + + + + | Performing | Address | City/State/Zipcode | Phone Number | | Organization | | | | + + + + + | [facility] | [address] | [place] [address] | | + + + + + CPK (10/17/2018 6:05 PM) + + + + + | Component | Value | Ref Range | Performed At | + + + + + | CPK | 443 (H)Comment: Testing | 30 - 240 U/L | [facility] | | | performed at [facility];[address] | | | | | [address];[place] | | | | | [address] | | | + + + + + + + | Specimen | + + | Blood | + + + + + + + | Performing | Address | City/State/Zipcode | Phone Number | | Organization | | | | + + + + + | [facility] | [address] | [place] [address] | | + + + + + Troponin I (10/17/2018 11:59 AM) + + + + + | Component | Value | Ref Range | Performed At | + + + + + | TROPONIN I | 0.119 (H)Comment: 0.04 | 0.00 - 0.04 ng/mL | [facility] | | | ng/mL or | [...] | | | [facility];[address] [facility] | | | | | Blvd;[place] [address] | | | + + + + + + + | Specimen | + + | Blood | + + + + + + + | Performing | Address | City/State/Zipcode | Phone Number | | Organization | | | | + + + + + | [facility] | [address] | [place] [address] | | + + + + + CPK (10/17/2018 11:59 AM) + + + + + | Component | Value | Ref Range | Performed At | + + + + + | CPK | 623 (H)Comment: Testing | 30 - 240 U/L | [facility] | | | performed at [facility];[address] | | | | | [address];[place] | | | | | [address] | | | + + + + + + + | Specimen | + + | Blood | + + + + + + + | Performing | Address | City/State/Zipcode | Phone Number | | Organization | | | | + + + + + | [facility] | [address] [facility] | [place] [address] | | + + + + + Protime-INR (10/17/2018 8:10 AM) + + + + + | Component | Value | Ref Range | Performed At | + + + + + | INR | 1.2Comment: REFERENCE | | [facility] | | | RANGE:0.9 - | [...] | performed at [facility];[address] | | | | | [address];[place] | | | | | [address] | | | + + + + + + + | Specimen | + + | Blood | + + + + + + + | Performing | Address | City/State/Zipcode | Phone Number | | Organization | | | | + + + + + | [facility] | [address] | [place] [address] | | + + + + + [...] | + + + + + | [facility] | [address] | [place] [address] | | + + + + + [...] + + + + | Calculated P [place] | 33 | degrees | [facility] | + + + + + | Calculated R [place] | -22 | degrees | [facility] | + + + + + | Calculated T [place] | 92 | degrees | [facility] [...] | | | | | ONLY, -COMPUTER (110), | | | | | editor house organ Daniela Esquivel | | | | | (18) on 10/17/2018 | | | | | 9:07:21 AM | | | + + + + + + + + + + | Performing | Address | City/State/Zipcode | Phone Number | | Organization | | | | + + + + + | [facility] | [address] | [place] [address] | | + + + + + Brain natriuretic peptide (10/17/2018 3:49 AM) + + + + + | Component | Value | Ref Range | Performed At | + + + + + | BRAIN NATRIURETIC | 1151.26 (H)Comment: | 0 - 100 pg/mL | [facility] | | PEPTIDE | Testing performed at | | | | | [facility];[address] | | | | | [address];[place] [address] | | | + + + + + + + + + + | Performing | Address | City/State/Zipcode | Phone Number | | Organization | | | | + + + + + | [facility] | [address] | [place] [address] | | + + + + + Troponin I, Lab (10/17/2018 3:49 AM) + + + + + | Component | Value | Ref Range | Performed At | + + + + + | TROPONIN I | 0.151 (H)Comment: 0.04 | 0.00 - 0.04 ng/mL | [facility] | | | ng/mL or | [...] [place];[address] | | | | [address];[place] [address] | | | + + + + + + + | Specimen | + + | Blood | + + + + + + + | Performing | Address | City/State/Zipcode | Phone Number | | Organization | | | | + + + + + | [facility] | [address] | [facility] [place] [address] | | + + + + + Cardiac Panel (10/17/2018 3:49 AM) + + + + + | Component | Value | Ref Range | Performed At | + + + + + | WBC | 6.63 | 3.80 - 11.00 K/uL | [facility] | + + + + + | RBC | 3.07 (L) | 3.70 - 5.10 M/uL | [facility] | + + + + + | HGB | 10.9 (L) | 11.3 - 15.5 g/dL | [facility] | + + + + + | HCT | 32.7 (L) | 34.0 - 46.0 % | [facility] | + + + + + [...] 4.68 | 1.90 - 7.40 K/uL | [facility] | + + + + + | LYMPHOCYTES ABS | 1.00 | 1.00 - 3.90 K/uL | [facility] | + + + + + | MONOCYTES ABS | 0.26 | 0.00 - 0.80 K/uL | [facility] | + + + + + | EOSINOPHILS ABS | 0.60 (H) | 0.00 - 0.50 K/uL | [facility] | + + + + + | BASOPHILS ABS | 0.08 | 0.00 - 0.10 K/uL | [facility] | + + + + + | MORPHOLOGY | 2+ | | [facility] | | | Comment: | | | | | MACRO | | | | | NORMAL PLT MORPH | | | | | 1+ | | | | | ANISO | | | | | | | | + + + + + | Platelet Estimate | ADEQUATE | | [facility] | + + + + + | SODIUM | 142 | 135 - 145 mmol/L | [facility] | + + + + + | POTASSIUM | 5.5 (H)Comment: SLT | 3.5 - 4.9 mmol/L | [facility] | | | HEMOLYSIS | | | + + + + + | CHLORIDE | 104 | 99 - 109 mmol/L | [facility] | + + + + + | CO2 | 17 (L) | 23 - 32 mmol/L | [facility] | + + + + + [...] 0.6 | 0.1 - 1.5 mg/dL | [facility] | + + + + + | ALK PHOS | 85 | 35 - 115 U/L | [facility] | + + + + + | AST | 40 | 10 - 45 U/L | [facility] | + + + + + | ALT | 31 | 10 - 65 U/L | [facility] | + + + + + | EGFR | 3 (L)Comment: GFR <60: | >60 mL/min/1.73m2 | [facility] | | | CHRONIC KIDNEY DISEASE, [...] SLT | 30 - 240 U/L | [facility] | | | HEMOLYSIS | | | + + + + + | INR | 1.2Comment: REFERENCE | | [facility] | | | RANGE:0.9 - | [...] 23 | 23 - 32 seconds | [facility] | + + + + + | MMB | 17.8 (H) | 0.5 - 3.6 ng/mL | [facility] | + + + + + | CK-MB Index | UNABLE TO | | [facility] | | | CALCULATEComment: | | | | | Testing performed at | | | | | [facility];[address] [place] [address] | | | | | Blvd;[place] [address] | | | + + + + + + + + + + | Performing | Address | City/State/Zipcode | Phone Number | | Organization | | | | + + + + + | [facility] | [address] | [place] [address] | | + + + + + ED INFORMATION EXCHANGE (10/17/2018 1:10 AM) + + + | Narrative | Performed At | + + + | [id number] Criteria Met Care | ED | | [...] | Medical/Surgical 05/28/18 12:00 AM [facility] | | | PATIENT HAS AN APT WITH PCP DR NICHOLSON ON 09/11/18. | | | PATIENT GRANULATOR TENDER- DR [phone] Patient is | | | currently established with [facility]. If patient is seen in | | | the ED during business hours. Please contact CHWs at [facility] | | | [facility]. Care Recommendation: This patient has had 5 [...] | | mo.) Facility Visits Low Acuity [facility] 4 0 | | | [facility] 12 0 Total 16 0 Note: [...] or [facility] [place] [facility] | [facility] [place] | | | Emergency Chief Complaint: EXCESS FLUID Aug 20, [address] [facility] [address] | | | [place] Emergency Dependence on renal dialysis | | | Chronic kidney disease, unspecified Allergy status to | | | other drugs, medicaments and biological substances status | | | Chronic pulmonary edema Other terminal supervisor (current) drug therapy | | | Allergy status to narcotic agent status Dyspnea, | | | unspecified Radiographic dye allergy status Aug 13, 2018 | | | [facility] [place] [facility] Allergy status to | | | other drugs, medicaments and biological substances status | | | Pleural effusion, not elsewhere classified End stage renal | | | disease Allergy status to narcotic agent status | | | Hyperkalemia Other specified abnormalities of plasma proteins | | | Other terminal supervisor (current) drug therapy Radiographic dye | | | allergy status Dependence on renal dialysis Chest pain, | | | unspecified [facility] [place] [facility] | [facility] [place] [facility] | | Emergency Cough Pneumonia Hypoxemia | | | Pleural effusion, not elsewhere classified Fever, unspecified | | | Personal history of other diseases of urinary system July | | | 2018 [facility] [place] Emergency Personal | | | history of nicotine dependence Other specified respiratory | | | disorders Cough Radiographic dye allergy status | | | Allergy status to narcotic agent status Chronic kidney disease, | | | unspecified Allergy status to other drugs, medicaments and | | | biological substances status Jun 19, [address] [facility] [address] [place] [facility] | | | [place] [...] dye allergy status | | | Other terminal supervisor (current) drug therapy Jun 12, 2018 [facility] | | | [place] Emergency Shortness of breath | | | Fluid overload, unspecified Hyperkalemia Radiographic | | | dye allergy status Allergy status to narcotic agent status | | | Other residential (current) drug therapy Allergy status to | | | other drugs, medicaments and biological substances status | | | Unspecified asthma, uncomplicated Dependence on renal dialysis | | | Chronic kidney disease, unspecified Jun 11, [address] [facility] [address] | | | [place] Emergency Chronic pulmonary edema | | | Shortness of breath Radiographic dye allergy status | | | Personal history of nicotine dependence Other terminal supervisor | | | (current) drug therapy care home (current) use of opiate | | | analgesic Recent Inpatient Visit Summary Date Facility | | | City State Type Diagnoses or Chief Complaint Aug 20, 2018 [facility] | | | [facility] Pleural Effusion | | | Chronic pulmonary edema July 18, 2018 [facility] | | | [facility] General [facility] Hypoxemia Personal history | | | of other diseases of urinary system Fever, unspecified | | | Pleural effusion, not elsewhere classified End stage renal | | | disease Dependence on renal dialysis Anemia in chronic | | | kidney disease Pulmonary hypertension, unspecified | | | Chronic right heart failure May 26, 2018 [facility] | | | [facility] General Medicine Acute respiratory distress | [...] 28, | | | 2019 - Current uStudio Portal This patient has registered | | | at the [facility] Emergency Department For more | | | information visit: | | | [email or web address] | | | [email or web address] PLEASE NOTE: 1. [...] | | completeness of information provided. 2019 [employer] | | | [employer]. - [email or web address] | | + + + + + | Procedure Note | + + | Interface, Lab - 10/17/2018 1:12 AM PDT Formatting of this note may be different | | from the original.[id number] [id number] [facility] Care Guidelines 10 in | | 12 2 in 2Security and SafetyNo recent Security Events currently on fileED Care | | GuidelinesThere are currently no ED Care Guidelines for this patient. Please check your | | facility's medical records system.Care HistoryMedical/Surgical05/28/18 12:00 AM [facility] . | | [facility] PATIENT HAS AN APT WITH PCP DR NICHOLSON ON 09/11/18. PATIENT | | GRANULATOR TENDER- DR [phone] Patient is currently established with | [facility]. If patient is seen in the ED during business hours. Please contact CHWs | | at [facility].Care Recommendation:This patient has had 5 or more [...] Visit Count (12 mo.)Facility Visits Low Acuity [facility] | | Center 4 0 [facility] 12 0 Total 16 0 Note: [...] Chief | | Complaint Oct 17, 2018 [facility] Oct [facility] 2018 [facility] | | [place]. [place] Emergency Chief Complaint: EXCESS FLUID Aug 20, 2018 [facility]. | | [place]even [place]. [place]. [place] Emergency Dependence on renal dialysis Chronic kidney | | disease, unspecified Allergy status to other drugs, medicaments and biological | | substances status Chronic pulmonary edema Other residential (current) drug therapy | | Allergy status to narcotic agent status Dyspnea, unspecified Radiographic dye | | allergy status [facility] Emergency Allergy status to [...] Chest pain, unspecified Aug 13, 2018 [facility] | | Emergency July 18, 2018 [facility] Emergency Cough Pneumonia | | Hypoxemia Pleural effusion, not elsewhere classified Fever, unspecified | | Personal history of other diseases of urinary system July 18, [address] [facility] [address] [facility] | | [place]. [...] unspecified | | Heart failure, unspecified terminal supervisor (current) use of opiate analgesic Allergy | | status to other drugs, medicaments and biological substances status Radiographic dye | | allergy status Other terminal supervisor (current) drug therapy Jun 12, 2018 [facility] | | H. [place]. [place] Emergency Shortness of breath Fluid overload, unspecified | | Hyperkalemia Radiographic dye allergy status Allergy status to narcotic agent | | status Other terminal supervisor (current) drug therapy Allergy status to [...] long | | term (current) 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 care home (current) use of opiate analgesic Recent | | Inpatient Visit SummaryDate Facility City State Type Diagnoses or Chief Complaint Aug | | [facility] Pleural Effusion Chronic | | pulmonary edema [facility] | | Hypoxemia Personal history of other diseases of urinary system Fever, unspecified | | Pleural effusion, not elsewhere classified End stage renal disease Dependence | | on renal dialysis Anemia in chronic kidney disease Pulmonary hypertension, | | unspecified Chronic right heart failure May 26[facility] | | General Medicine Acute respiratory distress Chest pain, unspecified Pleural | | effusion, not elsewhere classified Other ascites Dependence on renal dialysis | | Hyperkalemia Other disorders of phosphorus metabolism End stage renal disease | | Other specified personal risk factors, not elsewhere classified Acute systolic | | (congestive) heart failure Care [facility]Provider [facility] Type Phone Fax Service Dates BHARAT, | | TIEN Gallagher MD Internal Medicine May 28, 2018 - Current Collective PortalThis patient | | has registered at the [facility] Emergency Department For more | | information visit: | | [email or web address] PLEASE | | NOTE: 1. Any care [...] or completeness of information | | provided.2019 [employer] - www[employer]ocracy | | Personal history of other diseases of urinary system | | | |July 18, 2018 [facility] [place] Emergency | | Personal history of nicotine dependence | | Other specified respiratory disorders | | Cough | | Radiographic dye allergy status | | Allergy status to narcotic agent status | | Chronic kidney disease, unspecified | | Allergy status to other drugs, medicaments and biological substances status | | | |Jun 19, 2018 [facility] [place] Emergency | | Other chest pain | | End stage renal disease | | Dependence on renal dialysis | | Personal history of nicotine dependence | | Fluid overload, unspecified | | Heart failure, unspecified | | terminal supervisor (current) use of opiate analgesic | | Allergy status to other drugs, medicaments and biological substances status | | Radiographic dye allergy status | | Other terminal supervisor (current) drug therapy | | | |Jun 12, 2018 [facility] [place] Emergency | | Shortness of breath | | Fluid overload, unspecified | | Hyperkalemia | | Radiographic dye allergy status | | Allergy status to narcotic agent status | | Other terminal supervisor (current) drug therapy | | Allergy status to other drugs, medicaments and biological substances status | | Unspecified asthma, uncomplicated | | Dependence on renal dialysis | | Chronic kidney disease, unspecified | | | |Jun 11, 2018 [facility] [place] Emergency | | Chronic pulmonary edema | | Shortness of breath | | Radiographic dye allergy status | | Personal history of nicotine dependence | | Other residential (current) drug therapy | | care home (current) use of opiate analgesic | | | | | | | |Recent Inpatient Visit Summary | |Date Facility City State Type Diagnoses or Chief Complaint | |Aug 20, 2018 [facility] General Medicine | | Pleural Effusion | | Chronic pulmonary edema | | | |July 18, 2018 [facility] General Medicine | | Hypoxemia | | Personal history of other diseases of urinary system | | Fever, unspecified | | Pleural effusion, not elsewhere classified | | End stage renal disease | | Dependence on renal dialysis | | Anemia in chronic kidney disease | | Pulmonary hypertension, unspecified | | Chronic right heart failure | | | |May 26, 2018 [facility] General Medicine | | Acute respiratory distress [...] 28, 2018 - Current | | | |uStudio Portal | |This patient has registered at the [facility] Emergency Department | |For more information visit: [email or web address] | |PLEASE NOTE: | | 1. Any [...] of information provided. | | | |2019 [employer]. - [email or web address] | + + + +---------+ + + [...]
--- OUTSIDE RECORDS SUMMARY | ~2019-01-02 | XMS | Encounter Summary ---
Demographics + + + | Address | [address] | | | [place] [address] | + + + | Home Phone [...] | | | | | [place] [address] | | + + + + + | Thania Mallory | ECON | [address] | | | | | [place] [address] | | + + + + + | Deidra Weldon | ECON | [address] | | | | | [place] | | | | | [address] | | + + + + + Care Team Providers + +------+ + | Care Assurance Officer Name | Role | Phone | [...] | | | | ANNALISA Hoffmann [facility] | [facility] | | | | | [place], [place] | [place], [place] | | | | | [address] | [address] | | | | | [phone] | [phone] | | | | | | | [...] [place] | | | | | | [address] | | | | | | [phone] | | | | | | | | +--------+ + + + + documented as of this encounter Visit Diagnoses Not on filedocumented in this encounter"
--- OUTSIDE RECORDS SUMMARY | ~2019-01-02 | XMS | Encounter Summary ---
Demographics + + + | Address | [address] | | | [place] [address] | + + + | Home Phone [...] | Author | [facility] | | | and Josephana | + + + | Organization | [facility] [...] Team Providers + +------+ + | Care Binitrotoluene Operator Name | Role | Phone | + +------+ + | Jonathan Alonso MD | PCP | | + +------+ + Encounter Details +--------+ + + + + | Date | Type | Department | Care Team | Description | +--------+ + + + + | 10/17/ | Hospital | [facility] | Nikita, | ESRD (end stage | | 2019 - | Encounter | [facility] | MD [address] | renal disease) | | | | CARE FLOOR [address] | ([facility]); Dilated | | 10/22/ | | [address] | [place] [address] | cardiomyopathy | | 2019 | | [place], [place] | [phone] | ([facility]); | | | | [address] | | Non-cardiogenic | | | | [phone] | Gerber Pearson MD | pulmonary edema; | | | | | [address] | Anemia in ESRD | | | | | [place] [address] | (end-stage renal | | | | | [phone] | disease) ([facility]); | | | | [...] failure | | | | | | ([facility]); At high risk | | [...] might be different from t chacha coleman. [facility] Service: Hospitalist Physician [...] is to follow up with her regular packager hand, Dr. Hurtado. DISCHARGE DIAGNOSES: 1. End-stage renal [...] Blake Chavarria MD ; Location: [facility] MAIN OR AV FISTULA REPAIR Left 03/07/2014 Procedure: AV FISTULA - GRAFT REPAIR/REVISION; Surgeon: Rik Simon MD; Location: [facility]; Service: Vascular; Laterality: Left; biopsy of kidney age 10 DIALYSIS FISTULA CREATION 04/08/2014 Procedure: DIALYSIS CATHETER - INSERTION; Surgeon: Rik Simon MD; Location: [facility] MAIN OR ; Service: Vascular; Laterality: N/A; tunneled catheter.br hemodialysis catheter KIDNEY BIOPSY Left 2003 OTHER SURGICAL HISTORY LAPAROSCOPIC PERITONEAL DIALYSIS CATHETER INSERTION - x2 OTHER SURGICAL HISTORY Right 07/2013 LAPAROSCOPIC PERITONEAL DIALYSIS CATHETER INSERTION - current dialysis access MWF dialysis OTHER SURGICAL HISTORY Left 06/24/2014 SUPERFICIALIZATION OF AV FISTULA - Procedure: AV FISTULA - SUPERFICIALIZATION; Surgeon: Emanuel Simon MD; Location: [facility] MAIN OR; Service: Vascular; Laterality: Left; OTHER SURGICAL HISTORY Left 04/08/2014 AV FISTULA PLACEMENT - Procedure: AV FISTULA; Surgeon: Rik Simon MD; Location: [facility]; Service: Vascular; Laterality: Left; cephalic OTHER SURGICAL HISTORY Left 03/07/2014 DECLOT GRAFT - Procedure: GRAFT - DECLOT; Surgeon: Rik Simon MD; Location: [facility] OR ; Service: Vascular; Laterality: [...] have: Continued coughing Fever Date Last Reviewed: 02/04/201619992554-3635 [employer]. [address] [place] [address]. All righ ts reserved. This information is [...] by your healthcare provider Date Last Reviewed: 12/05/201519998135-2644 [employer]. [address] [place] [address]. All righ ts reserved. This information is [...] + + +---------+ + + | B Aqjbpfp-R-Ssnpi | Take 1 tablet by | | [...] I have discussed the case with the ASBESTOS CLOTH INSPECTOR. I agree with his findings & documentation. [...] Antonio Carrasco MD - 10/21/2018 1500 PDT [facility] Service: NEPHROLOGY Progress Note Dara Weldon 23 y.o. [id number] female Jonathan Alonso MD Hospital Day: [...] Blake Chavarria MD ; Location: [facility] MAIN OR AV FISTULA REPAIR Left 03/07/2014 Procedure: AV FISTULA - GRAFT REPAIR/REVISION; Surgeon: Rik Simon MD; Location: [facility]; Service: Vascular; Laterality: Left; biopsy of kidney age 10 DIALYSIS FISTULA CREATION 04/08/2014 Procedure: DIALYSIS CATHETER - INSERTION; Surgeon: Rik Simon MD; Location: [facility] MAIN OR ; Service: Vascular; Laterality: N/A; tunneled catheter.br hemodialysis catheter KIDNEY BIOPSY Left 2003 OTHER SURGICAL HISTORY LAPAROSCOPIC PERITONEAL DIALYSIS CATHETER INSERTION - x2 OTHER SURGICAL HISTORY Right 07/2013 LAPAROSCOPIC PERITONEAL DIALYSIS CATHETER INSERTION - current dialysis access MWF dialysis OTHER SURGICAL HISTORY Left 06/24/2014 SUPERFICIALIZATION OF AV FISTULA - Procedure: AV FISTULA - SUPERFICIALIZATION; Surgeon: Emanuel Simon MD; Location: [facility] MAIN OR; Service: Vascular; Laterality: Left; OTHER SURGICAL HISTORY Left 04/08/2014 AV FISTULA PLACEMENT - Procedure: AV FISTULA; Surgeon: Rik Simon MD; Location: [facility]; Service: Vascular; Laterality: Left; cephalic OTHER SURGICAL HISTORY Left 03/07/2014 DECLOT GRAFT - Procedure: GRAFT - DECLOT; Surgeon: Rik Simon MD; Location: [facility] MAIN OR ; Service: Vascular; [...] MR, severe TR.severe pulmonary hyperten arturo Chest w-bhj-zbhonilyuvmo with pulmonary edema and large right pleural [...] earlier and charting completed later Dictation software, Career[employer], used which may contain error for similar sounding words even af ter review. Personal communication requested for any clarification. Portions of my notes may have been carried over for continuity of care.Electronically ananth d by Antonio Benjamin MD at 10/21/2018 15:11 PDTVinGerber pastrana MD - 10/21/2018 0718 PDTFormat ting of this note might be different from the original. [facility] Adult Hospitalist Progress [...] BUN 90 on admission -History of a [place] S[place]lein purpura -Last hemodialysis approximately 2 weeks [...] Gerber Fernandez MD - 10/20/2018 0909 PDT [facility] Adult Hospitalist [...] BUN 90 on admission -History of a [place] purpura -Last hemodialysis approximately 2 weeks [...] E | | | | | | [place] [address] | | | | | | [phone] | | | | | | | [...] performed at [facility], [address] | | LABORATORY | | | | [address], | | | | | | [place] [address] | | | | + + + + + + + + | Specimen | + + | Blood | + + + + + + + | Performing | Address | City/State/Zipcode | Phone Number | | Organization | | | | + + + + + | [facility] | [address] | [place] [address] | [phone] | + + + + + Basic [...] 7 (L)Comment: GFR <60: | >60 | [facility] | | | GFR | [...] performed at [facility], [address] | | | | | | [facility], | | | | | | [place] [address] | | | | + + + + + + + + | Specimen | + + | Blood | + + + + + + + | Performing | Address | City/State/Zipcode | Phone Number | | Organization | | | | + + + + + | [facility] | [address] | [place] [address] | [phone] | + + + + + Basic [...] 11 (L)Comment: GFR <60: | >60 | [facility] | | | GFR | [...] performed at [facility], [address] | | | | | | [facility], | | | | | | [place] [address] | | | | + + + + + + + + | Specimen | + + | Blood | + + + + + + + | Performing | Address | City/State/Zipcode | Phone Number | | Organization | | | | + + + + + | [facility] | [address] | [place] [address] | [phone] | + + + + + Basic [...] | | | | | performed at [facility];[address] | | | | | | [address];[place], [place] | | | | | | [address] | | | | + + + + + + + + | Specimen | + + | Blood | + + + + + + + | Performing | Address | City/State/Zipcode | Phone Number | | Organization | | | | + + + + + | [facility] | [address] | [place] [address] | [phone] | + + + + + documented in this encounter Visit Diagnoses + + | Diagnosis | + + | Non-cardiogenic pulmonary edema - Primary Pulmonary congestion and hypostasis | + + | ESRD (end stage renal disease) ([facility]) End stage renal disease [...] | | | for platelets less than [id number], | | + +---+ | | | [...]
--- OUTSIDE RECORDS SUMMARY | ~2019-01-02 | XMS | Encounter Summary ---
Demographics + + + | Address | [address] | | | [place] [address] | + + + | Home Phone [...] | | | | | [place] [address] | | + + + + + | Thania Mallory | ECON | [address] | | | | | [place] [address] | | + + + + + | Deidra Weldon | ECON | [address] | | | | | [place] | | | | | [address] | | + + + + + Care Team Providers + +------+ + | Care Building Drafting Officer Name | Role | Phone | [...] | | | | ANNALISA Hoffmann [facility] | [address] | | | | | [place], [place] | [place], [place] | | | | | [address] | [address] | | | | | [phone] | [phone] | | | | | | | [...] Denise | | | | | | [place], [place] | | | | | | [address] | | | | | | [phone] | | | | | | | | +--------+ + + + + documented as of this encounter Visit Diagnoses Not on filedocumented in this encounter"
--- OUTSIDE RECORDS SUMMARY | ~2019-01-02 | XMS | Encounter Summary ---
Demographics + + + | Address | [address] | | | [place] [address] | + + + | Home Phone [...] | | | | | [place] [address] | | + + + + + | Thania Mallory | ECON | [address] | | | | | [place] [address] | | + + + + + | Deidra Weldon | ECON | [address] | | | | | [place] | | | | | [address] | | + + + + + Care Team Providers + +------+ + | Care Computer Repair Technician Name | Role | Phone [...] Pool Shun | | | | | [facility] | [facility] | | | | | Rd [place], [place] | [place], [place] | | | | | [address] | [address] | | | | | [phone] | | | +--------+ + + + [...] Denise | | | | | | [place] | | | | | | [address] | | | | | | [phone] | | | | | | | | +--------+ + + + + documented as of this encounter Visit Diagnoses Not on filedocumented in this encounter"
--- OUTSIDE RECORDS SUMMARY | ~2019-01-02 | XMS | Encounter Summary ---
Demographics + + + | Address | [address] | | | [place] [address] | + + + | Home Phone [...] | | | | | [place] [address] | | + + + + + | Thania Mallory | ECON | [address] | | | | | [place] [address] | | + + + + + | Deidra Weldon | ECON | [address] | | | | | [place] | | | | | [address] | | + + + + + Care Team Providers + +------+ + | Care Career Professional Name | Role | Phone | [...] ANNALISA Hoffmann [facility] | [facility] [place]in | | | | | [place], [place] | [place], [place] | | | | | [address] | [address] | | | | | [phone] | [phone] | | | | | | | [...] Denise | | | | | | [place], [place] | | | | | | [address] | | | | | | [phone] | | | | | | | | +--------+ + + + + documented as of this encounter Visit Diagnoses Not on filedocumented in this encounter"
--- OUTSIDE RECORDS SUMMARY | ~2019-01-02 | XMS | Encounter Summary ---
Demographics + + + | Address | [address] | | | [place] [address] | + + + | Home Phone [...] | | | | | [place] [address] | | + + + + + | Thania Mallory | ECON | [address] | | | | | [place] [address] | | + + + + + | Deidra Weldon | ECON | [address] | | | | | [place] | | | | | [address] | | + + + + + Care Team Providers + +------+ + | Care Barrel Reamer Name | Role | Phone | [...] Rd | | | | | [facility] | [place], [place] | | | | | [address] | [address] | | | | | [place] Mailcode: | [phone] | | | | | [address] | | | | | | [place], [place] | | | | | | [address] | | | | | | [phone] | | | +--------+ + + + [...] Denise | | | | | | [place], [place] | | | | | | [address] | | | | | | [phone] | | | | | | | [...] + + | [facility] - | [address] | [place] | [phone] | | [place] | | | | + + + + + documented in this encounter Visit Diagnoses Not on filedocumented in this encounter"
--- OUTSIDE RECORDS SUMMARY | ~2019-01-02 | XMS | Encounter Summary ---
Demographics + + + | Address | [address] | | | [place] [address] | + + + | Home Phone [...] | | | | | [place] [address] | | + + + + + | Thania Mallory | ECON | [address] | | | | | [place] [address] | | + + + + + | Deidra Weldon | ECON | [address] | | | | | [place] | | | | | [address] | | + + + + + Care Team Providers + +------+ + | Care Aoc Director Intelligence Officer Name | Role | Phone | [...] | Update | | | | ANNALISA [facility] | [facility] | | | | | Rd [place], [place] | [place], [place] | | | | | [address] | [address] | | | | | [phone] | | | +--------+ + + + [...] | | | | | | [place] | | | | | | [address] | | | | | | [phone] | | | | | | | | +--------+ + + + + documented as of this encounter Visit Diagnoses Not on filedocumented in this encounter"
--- OUTSIDE RECORDS SUMMARY | ~2019-01-02 | XMS | Encounter Summary ---
Demographics + + + | Address | [address] | | | [place] [address] | + + + | Home Phone [...] | | | | | [place] [address] | | + + + + + | Thania Mallory | ECON | [address] | | | | | [place] [address] | | + + + + + | Deidra Weldon | ECON | [address] | | | | | [place] | | | | | [address] | | + + + + + Care Team Providers + +------+ + | Care Manager Financial Name | Role | Phone | + [...] | | | | | TRANST[facility]ORACI | [place], [place] | [id number] | | | | | C | [address] | [place] | | | | | ECHOCARDIOGR | Phone: | [place], [place] | | | | | AM, PEDS | [phone] | [address] | | | | | | Fax: | Phone: | | | | | | [phone] | [phone] | | | | | | | Fax: | | | | | | | [phone] | +--------+--------+ + + + + Reason [...] | | | | | TRANSTHORACI | [place], [place] | [id number] | | | | | C | [address] | [place] | | | | | ECHOCARDIOGR | Phone: | [place], [place] | | | | | AM, PEDS | [phone] | [address] | | | | | | Fax: | Phone: | | | | | | [phone] | [phone] | | | | | | | Fax: | | | | | | | [phone] | +--------+--------+ + + + + Encounter Details +--------+ + + + + | Date | Type | Department | Care Team | Description | +--------+ + + + + | 12/20/ | Hospital | Pediatric Echo Lab | | | | 2012 | Encounter | at [facility] [address] | | | | | | Elias [address]izondo | | | | | | Mailcode: [id number] | | | | | | [place] | | | | | | [place], [place] | | | | | | [address] | | | | | | [phone] | | | +--------+ + + + [...] Denise | | | | | | [place], [place] | | | | | | [address] | | | | | | [phone] | | | | | | | [...]
--- OUTSIDE RECORDS SUMMARY | ~2019-01-02 | XMS | Encounter Summary ---
Demographics + + + | Address | [address] | | | [place] [address] | + + + | Home Phone [...] + | Author | [facility] (Historical as of | | | 10-20-18) | + + + | Organization | [facility] (Historical as of | | | 10-20-18) [...] Providers + +------+ + | Care Switch Inspector Name | Role | Phone | [...] | Specialty | Sleep | Diagnoses | Bnejamin, | Lab, [facility] | | | Services | Medicine | SHADE | Denny | [facility] | | | Required | | (obstructive | Deny Briggs MD | Sleep | | | | | sleep | 1100 | Disorders | | | | | apnea) | Shantelle Iraheta | [facility] | | | | | | Jaciel E | [facility] | | | | | | [place], [place] | [address] | | | | | | [address] | [address] | | | | | | Phone: | [employer] [place], [place] | | | | | | [phone] | [address] | | | | | | Fax: | Phone: | | | | | | [phone] | [phone] | | | | | | | Fax: | | | | | | | [phone] | + + + + + + [...] | | | | [address] | [place], [place] | | | | | | [place] | [address] | | | | | | [address] | Phone: | | | | | | Phone: | [phone] | | | | | | [phone] | | | | | | | Fax: | | | | | | | [phone] | | + + + + + + + Encounter Details +--------+---------+ + + + | Date | Type | Department | Care Team | Description | +--------+---------+ + + + | 10/02/ | Office | [facility] | Denny Alexander | Pleural effusion | | 2019 | Visit | Pulmonology 1100 | Deny Briggs MD 1100 | (Primary Dx); SHADE | | | | Shantelle PRAJAPATI | Shantelle Grissom E | (obstructive sleep | | | | [place], [place] | [place] [address] | apnea); Marijuana | | | | [address] | [phone] | abuse | | | | [phone] | | | +--------+---------+ + + + [...] y.o. 1995 Referred from: Usha Martínez MD [address] [facility] [address] [place] [address] Referral reason: Chief Complaint Patient presents with [...] May. Back then she was admitted at [facility] for worsening dyspnea fo und to have a large right pleural effusion and ascites from fluid overload. Pleural fluid w as thought to be transudative. She then underwent another thoracentesis on 07/21/18. After that she had another one on 08/21 at [facility] wherein 2.5L was removed. She then had re -expansion pulmonary edema on the right and was transferred to [facility]. This had improved. Currently she is [...] use. She is dialyzed Q MWF. Her video specialist is Dr. Anguiano and Dr. Mahmood is her cigar packer and grader. Review of Systems Constitutional: Negative. Negative for [...] AV FISTULA; Surgeon: Rik Simon MD; Location: [facility] MAIN OR; Service: Vascula r; Laterality: Left; cephalic AV FISTULA REPAIR Left 03/07/2014 Procedure: AV FISTULA - GRAFT REPAIR/REVISION; Surgeon: Rik Simon MD; Location: [facility] MA IN OR; Service: Vascular; Laterality: Left; DECLOT GRAFT Left 03/07/2014 Procedure: GRAFT - DECLOT; Surgeon: Rik Simon MD; Location: [facility] MAIN OR; Service: Vas cular; Laterality: Left; DIALYSIS FISTULA CREATION N/A 04/08/2014 Procedure: DIALYSIS CATHETER - INSERTION; Surgeon: Rik Simon MD; Location: [facility] MAIN OR ; Service: Vascular; Laterality: N/A; tunneled catheter LAPAROSCOPIC PERITONEAL DIALYSIS CATHETER INSERTION x2 LAPAROSCOPIC PERITONEAL DIALYSIS CATHETER INSERTION Right 07/2013 current dialysis access MWF dialysis RENAL BIOPSY Left 2003 SUPERFICIALIZATION OF AV FISTULA Left 06/24/2014 Procedure: AV FISTULA - SUPERFICIALIZATION; Surgeon: Rik Simon MD; Location: [facility] MAIN OR; Service: Vascular; Laterality: [...] to the nearest ED which i [place] to have it drained. - I will have her repeat her CXR when she returns for follow up. - if she requires frequent thoracenteses, then another option in the future would be pleuro desis. 2. SHADE (obstructive sleep apnea) - in the hospital, she was told she was desaturating at night and her mother also noted general dentist eic events when sleeping. I recommended having [...]
--- OUTSIDE RECORDS SUMMARY | ~2019-01-02 | XMS | Encounter Summary ---
Demographics + + + | Address | [address] | | | [place] [address] | + + + | Home Phone [...] | | | | | [place] [address] | | + + + + + | Thania Mallory | ECON | [address] | | | | | [place] [address] | | + + + + + | Deidra Weldon | ECON | [address] | | | | | [place] | | | | | [address] | | + + + + + Care Team Providers + +------+ + | Care Pan Dumper Name | Role | Phone | + [...] | | | | | ANNALISA [facility] | [facility] | | | | | Rd [place], [place] | [place], [place] | | | | | [address] | [address] | | | | | [phone] | | | +--------+ + + + [...] Denise | | | | | | [place] | | | | | | [address] | | | | | | [phone] | | | | | | | | +--------+ + + + + documented as of this encounter Visit Diagnoses Not on filedocumented in this encounter"
--- OUTSIDE RECORDS SUMMARY | ~2019-01-02 | XMS | Encounter Summary ---
Demographics + + + | Address | [address] | | | [place] [address] | + + + | Home Phone [...] | | | | | [place] [address] | | + + + + + | Thania Mallory | ECON | [address] | | | | | [place] [address] | | + + + + + | Deidra Weldon | ECON | [address] | | | | | [place] | | | | | [address] | | + + + + + Care Team Providers + +------+ + | Care Ladies Suit Operator Name | Role | Phone | [...] Hoffmann | | | | | [facility] | | | | | Rd [place], [place] | [place], [place] | | | | | [address] | [address] | | | | | [phone] | | | +--------+ + + + [...] Denise | | | | | | [place], [place] | | | | | | [address] | | | | | | [phone] | | | | | | | | +--------+ + + + + documented as of this encounter Visit Diagnoses Not on filedocumented in this encounter"
--- OUTSIDE RECORDS SUMMARY | ~2019-01-02 | XMS | Encounter Summary ---
Demographics + + + | Address | [address] | | | [place] [address] | + + + | Home Phone [...] | | | | | [place] [address] | | + + + + + | Thania Mallory | ECON | [address] | | | | | [place] [address] | | + + + + + | Deidra Weldon | ECON | [address] | | | | | [place] | | | | | [address] | | + + + + + Care Team Providers + +------+ + | Care Painter And Grader Cork Name | Role | Phone | + [...] 2012 | on | [address] | [place], [place] | | | | | ANNALISA Hoffmann [facility] | [address] | | | | | Rd [place], [place] | | | | | | [address] | | | | | | [phone] | | | +--------+ + + + [...] Denise | | | | | | [place], [place] | | | | | | [address] | | | | | | [phone] | | | | | | | | +--------+ + + + + documented as of this encounter Visit Diagnoses Not on filedocumented in this encounter"
--- OUTSIDE RECORDS SUMMARY | ~2019-01-02 | XMS | Encounter Summary ---
Demographics + + + | Address | [address] | | | [place] [address] | + + + | Home Phone [...] | | | | | [place] [address] | | + + + + + | Thania Mallory | ECON | [address] | | | | | [place] [address] | | + + + + + | Deidra Weldon | ECON | [address] | | | | | [place] | | | | | [address] | | + + + + + Care Team Providers + +------+ + | Care Church Warden Name | Role | Phone | [...] | | | | | Caro Chan [place], | | | | | | [place] [address] | | | +--------+ + + + [...] Denise | | | | | | [place], [place] | | | | | | [address] | | | | | | [phone] | | | | | | | [...] [facility] - | [address] | [place] [address] | | | IMMUNOGENETICS/TRANS | [address] [...] [facility] - | [address] | [place] [address] | | | IMMUNOGENETICS/TRANS | [address] [...] [facility] - | [address] | [place] [address] | | | IMMUNOGENETICS/TRANS | [address] | | | | [facility] | | | | + + + + + documented in this encounter Visit Diagnoses + + | Diagnosis | + + | End stage renal disease (HCC) End stage renal disease | + + documented in this encounter"
--- OUTSIDE RECORDS SUMMARY | ~2019-01-02 | XMS | Encounter Summary ---
Demographics + + + | Address | [address] | | | [place] [address] | + + + | Home Phone [...] | [facility] | | | and Josephana | + + + | Organization | [facility] | [...] Team Providers + +------+ + | Care Ambulance Dispatcher Name | Role | Phone | [...] + + | 11/15/ | Telephone | [facility] | George Torres RN | Lab Results | | 2019 | | [address] | | (Cytology report) | | | | [place] | | | | | | [address] | | | | | | [phone] | | | +--------+ + + + [...] DAVIDSON | | | | | | [place] [address] | | | | | | [phone] | | | | | | | | +--------+---------+ + + + documented as of this encounter Visit Diagnoses Not on filedocumented in this encounter"
--- OUTSIDE RECORDS SUMMARY | ~2019-01-02 | XMS | Encounter Summary ---
Demographics + + + | Address | [address] | | | [place] [address] | + + + | Home Phone [...] | | | | | [place] [address] | | + + + + + | Thania Mallory | ECON | [address] | | | | | [place] [address] | | + + + + + | Deidra Louise | ECON | [address] | | | | | [place] | | | | | [address] | | + + + + + Care Team Providers + +------+ + | Care Brick Picker Name | Role | Phone | [...] | purpura | [address] | [facility] [address] | | | | | (HCC) [facility] | Elias | [address] Eli[address] | | | | | (Amelie | [address] | [address] | | | | | nlein | [place], [place] | Mailcode: | | | | | purpura) | [address] | [address] | | | | | nephritis | Phone: | Doerarielaecher | | | | | (HCC) | [phone] | [place], [place] | | | | | Hemodialysis | Fax: | [address] | | | | | status | [phone] | Phone: | | | | | (HCC) | | [phone] | | | | | Chronic | | Fax: | | | | | kidney | | [phone] | | | | | disease, | | | | | | | stage V | | | | | | | ([facility]) | | | [...] | Appointment | | | | ANNALISA [facility] | [facility] | | | | | Rd [place], [place] | [place], [place] | | | | | [address] | [address] | | | | | [phone] | | | +--------+ + + + [...] Tariq | | | | | | [place], [place] | | | | | | [address] | | | | | | [phone] | | | | | | | | +--------+ + + + + + +------+--------+ + + | Name | Type | Priori | Associated Diagnoses | Order Schedule | | | | ty | | | + +------+--------+ + + | 12 LEAD ECG | ECG | Routin | Allergic purpura- | Ordered: 01/07/2015 | | | | e | MEDICARE 6568 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 | | | | | | Hemodialysis status | | | | | | ([facility]) Chronic | | | | | | kidney disease, | | | | | | stage V ([facility]) | | + +------+--------+ + [...] BSA | | | | | | (CONVERSE Z | | | | | | [...] 2:35 PM PST Echocardiography Laboratory | | [address] | | [place] [address] | | ; | | [id number] | | | | Transthoracic Echocardiogram Report | | | | | | NAME: DARA LOUISE Study Date: 01/20/2015 1:18:29 PM | | Order #: [id number] ACC #: [id number] | | | | | | : [...] on 01/20/2015 at 2:35:17 PM | | Supervisor Game Farm: Y[address] | | | | | | cc: | | | | | | Modes utilized | | TTE 26557; Spectral Doppler 83967; Color flow Doppler 82623; | | | | | | | | Final | + + + + + + + | Performing | Address | City/State/Zipcode | Phone Number | | Organization | | | | + + + + + | [facility] | [address] | [place], [place] | | | CARDIOLOGY | [address] | [address] | | + + + + + [...] + + + + | [facility] | [address] | [place] [address] | | | SERVICES, SPECIAL | PARK [...] | TILA | [address] | [place] [address] | | | DIAGNOSTIC | [address] [...] + | [facility] - | [address] | [place] [address] | | | [place] | | | | + + + [...] + | [facility] - | [address] | [place] [address] | | | [place] | | | [...] + | [facility] - | [address] | [place] [address] | | | [place] | | | [...] + | [facility] - | [address] | [place] [address] | | | [place] | | | | + + + [...] by | | | | | | [employer],[address] | | | | | | Lorne Drew, [facility],[place] | | | | | | [address] | | | | | | [phone]. | | | | | | Faisal [...] [facility] | [address] | [place], [place] | | | UNIV PTH - INTFC | | [address] | | + + + + + [...] + | [facility] | [address] | [place] [address] | | | [place] | | | [...] by | | | | | | [employer],[address] | | | | | | Lorne Rajendra, [facility],[place] | | | | | | [address] | | | | | | [phone]. | | | | | | Faisal [...] [facility] | [address] | [place], [place] | | | UNIV PTH - INTFC | | [address] | | + + + + + [...] LABORATORY | [address] | [place] [address] | | | SERVICES, CORE | PARK [...] [facility] | [address] | [place] [address] | | | SERVICES, CORE | PARK [...] + + + + | [facility] | [address] | [place] [address] | | | SERVICES, CORE | PARK [...] | + + + + + | [employer] | [address] | [place] [address] | | | SERVICES, CORE | LONG [...] LABORATORY | [address] | [place] [address] | | | [employer] | LONG [...] | | | LABORATORY | | | [employer] | | | SERVICES, | | | [...] + + + + | [facility] | [address] | [place] [address] | | | SERVICES, CORE | LONG [...]
--- OUTSIDE RECORDS SUMMARY | ~2019-01-02 | XMS | Encounter Summary ---
[...] | | | | | [place] [address] | | + + + + + | Thania Mallory | ECON | [address] | | | | | [place] [address] | | + + + + + | Deidra Weldon | ECON | [address] | | | | | [place] | | | | | [address] | | + + + + + Care Team Providers + +------+ + | Care Research Hydrologist Name | Role | Phone | + [...] | | [facility] | [place], [place] | | | | | [address] [facility] | [address] | | | | | [facility] Mailcode: | | | | | | [address] | | | | | | [place], [place] | | | | | | [address] | | | | | | [phone] | | | +--------+ + + + [...] Denise | | | | | | [place], [place] | | | | | | [address] | | | | | | [phone] | | | | | | | | +--------+ + + + + documented as of this encounter Visit Diagnoses + + | Diagnosis | + + | 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
--- OUTSIDE RECORDS SUMMARY | ~2019-01-02 | XMS | Encounter Summary ---
Demographics + + + | Address | [address] | | | [place] [address] | + + + | Home Phone [...] | | | | | [place] [address] | | + + + + + | Thania Mallory | ECON | [address] | | | | | [place] [address] | | + + + + + | Deidra Weldon | ECON | [address] | | | | | [place] | | | | | [address] | | + + + + + Care Team Providers + +------+ + | Care Quality Control Tester Name | Role | Phone [...] Update | | | | ANNALISA Hoffmann [facility] | [facility] | | | | | Dustin [place], [place] | [place], [place] | | | | | [address] | [address] | | | | | [phone] | [phone] | | | | | | | [...] | | | | | | [place], [place] | | | | | | [address] | | | | | | [phone] | | | | | | | | +--------+ + + + + documented as of this encounter Visit Diagnoses Not on filedocumented in this encounter"
--- OUTSIDE RECORDS SUMMARY | ~2019-01-02 | XMS | Encounter Summary ---
Demographics + + + | Address | [address] | | | [place] [address] | + + + | Home Phone [...] | | | | | [place] [address] | | + + + + + | Thania Mallory | ECON | [address] | | | | | [place] [address] | | + + + + + | Deidra Weldon | ECON | [address] | | | | | [place] | | | | | [address] | | + + + + + Care Team Providers + +------+ + | Care Buhr Dresser Name | Role | Phone | [...] | ABO) | | | | ANNALISA [facility] | [facility] | | | | | Rd [place], [place] | [place], [place] | | | | | [address] | [address] | | | | | [phone] | | | +--------+ + + + [...] Denise | | | | | | [place], [place] | | | | | | [address] | | | | | | [phone] | | | | | | | [...] + + | [facility] - | [address] | [place] | [phone] | | [place] | | | | + + + + + documented in this encounter Visit Diagnoses Not on filedocumented in this encounter"
--- OUTSIDE RECORDS SUMMARY | ~2019-01-02 | XMS | Encounter Summary ---
Demographics + + + | Address | [address] | | | [place] [address] | + + + | Home Phone [...] | | | | | [place] [address] | | + + + + + | Thania Mallory | ECON | [address] | | | | | [place] [address] | | + + + + + | Deidra Weldon | ECON | [address] | | | | | [place] | | | | | [address] | | + + + + + Care Team Providers + +------+ + | Care Revenue Investigator Name | Role | Phone | [...] | Update | | | | [facility] | [facility] | | | | | Rd [place], [place] | [place], [place] | | | | | [address] | [address] | | | | | [phone] | | | +--------+ + + + [...] [place] | | | | | | [address] | | | | | | [phone] | | | | | | | | +--------+ + + + + documented as of this encounter Visit Diagnoses Not on filedocumented in this encounter"
--- OUTSIDE RECORDS SUMMARY | ~2019-01-02 | XMS | Encounter Summary ---
Demographics + + + | Address | [address] | | | [place] [address] | + + + | Home Phone [...] | | | | | [place] [address] | | + + + + + | Thania Mallory | ECON | [address] | | | | | [place] [address] | | + + + + + | Deidra Weldon | ECON | [address] | | | | | [place] | | | | | [address] | | + + + + + Care Team Providers + +------+ + | Care Dental Laboratory Technology Teacher Name | Role | Phone [...] (Delisting) | | | | ANNALISA Hoffmann [facility] | [facility] | | | | | Rd [place], [place] | [place], [place] | | | | | [address] | [address] | | | | | [phone] | | | +--------+ + + + [...] Denise | | | | | | [place] | | | | | | [address] | | | | | | [phone] | | | | | | | | +--------+ + + + + documented as of this encounter Visit Diagnoses Not on filedocumented in this encounter"
--- OUTSIDE RECORDS SUMMARY | ~2019-01-02 | XMS | Encounter Summary ---
[...] | | | | | [place] [address] | | + + + + + | Thania Mallory | ECON | [address] | | | | | [place] [address] | | + + + + + | Deidra Weldon | ECON | [address] | | | | | [place] | | | | | [address] | | + + + + + Care Team Providers + +------+ + | Care Asthma Educator Name | Role | Phone | + +------+ + | Shahid Camargo MD | PCP | | + +------+ + Encounter Details +--------+ + + + + | Date | Type | Department | Care Team | Description | +--------+ + + + + | 12/20/ | Hospital | Radiology at [facility] | | | | 2012 | Encounter | [address] | | | | | | Caro Chan Mailcode: | | | | | | [address] | | | | | | [place], [place] | | | | | | [address] | | | | | | [phone] | | | +--------+ + + + [...] Denise | | | | | | [place], [place] | | | | | | [address] | | | | | | [phone] | | | | | | | [...] | e | 9:29 AM | MEDICARE 6754 | procedure are in the | | [...] | | + +---------+ + + | [facility] DEPARTMENT OF | | | | | RADIOLOGY | | | | + +---------+ + + documented in this encounter Visit Diagnoses + + | Diagnosis | + + | 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
--- OUTSIDE RECORDS SUMMARY | ~2019-01-02 | XMS | Encounter Summary ---
Demographics + + + | Address | [address] | | | [place] [address] | + + + | Home Phone [...] | | | | | [place] [address] | | + + + + + | Thania Mallory | ECON | [address] | | | | | [place] [address] | | + + + + + | Deidra Weldon | ECON | [address] | | | | | [place] | | | | | [address] | | + + + + + [...] | | 2012 | anned | [address] [facility] [facility] [address] | | | | | | [facility] | | | | | | [place], [place] | | | | | | [address] | | | +--------+ + + + [...] | | | | | | [place], [place] | | | | | | [address] | | | | | | [phone] | | | | | | | | +--------+ + + + + documented as of this encounter Visit Diagnoses Not on filedocumented in this encounter"
--- OUTSIDE RECORDS SUMMARY | ~2019-01-02 | XMS | Encounter Summary ---
[...] | | | | | [place] [address] | | + + + + + | Deidra Weldon | ECON | [address] | | | | | [place] | | | | | [address] | | + + + + + Care Team Providers + +------+ + | Care Airline Radio Operator Name | Role | Phone | [...] Hoffmann | | | | | ANNALISA [facility] | [facility] | | | | | Rd [place], [place] | [place], [place] | | | | | [address] | [address] | | | | | [phone] | | | +--------+ + + + [...] [place] | | | | | | [address] | | | | | | [phone] | | | | | | | | +--------+ + + + + documented as of this encounter Visit Diagnoses Not on filedocumented in this encounter"
--- OUTSIDE RECORDS SUMMARY | ~2019-01-02 | XMS | Encounter Summary ---
Demographics + + + | Address | [address] | | | [place] [address] | + + + | Home Phone [...] | | | | | [place] [address] | | + + + + + | Thania Mallory | ECON | [address] | | | | | [place] [address] | | + + + + + | Deidra Weldon | ECON | [address] | | | | | [place] | | | | | [address] | | + + + + + Care Team Providers + +------+ + | Care Inspection Manager Name | Role | Phone | [...] | Decision | | | | [facility] | [facility] | | | | | Rd [place], [place] | [place], [place] | | | | | [address] | [address] | | | | | [phone] | | | +--------+ + + + [...] [place] | | | | | | [address] | | | | | | [phone] | | | | | | | | +--------+ + + + + documented as of this encounter Visit Diagnoses Not on filedocumented in this encounter"
--- OUTSIDE RECORDS SUMMARY | ~2019-01-02 | XMS | Encounter Summary ---
Demographics + + + | Address | [address] | | | [place] [address] | + + + | Home Phone [...] | | | | | [place] [address] | | + + + + + | Thania Mallory | ECON | [address] | | | | | [place] [address] | | + + + + + | Deidra Weldon | ECON | [address] | | | | | [place] | | | | | [address] | | + + + + + Care Team Providers + +------+ + | Care Documentation Writer Name | Role | Phone | [...] | | | | | ANNALISA Hoffmann [facility] | [facility] | | | | | Rd [place], [place] | [place], [place] | | | | | [address] | [address] | | | | | [phone] | | | +--------+ + + + [...] | | | | | | [place] | | | | | | [address] | | | | | | [phone] | | | | | | | | +--------+ + + + + documented as of this encounter Visit Diagnoses Not on filedocumented in this encounter"
--- OUTSIDE RECORDS SUMMARY | ~2019-01-02 | XMS | Encounter Summary ---
Demographics + + + | Address | [address] | | | [place] [address] | + + + | Home Phone [...] | | | | | [place] [address] | | + + + + + | Thania Mallory | ECON | [address] | | | | | [place] [address] | | + + + + + | Deidra Weldon | ECON | [address] | | | | | [place] | | | | | [address] | | + + + + + Care Team Providers + +------+ + | Care Recreation Aide Name | Role | Phone | [...] Hoffmann | | | | | ANNALISA [facility] | [facility] | | | | | [address] [place], [place] | [place], [place] | | | | | [address] | [address] | | | | | [phone] | | | +--------+ + + + [...] Denise | | | | | | [place], [place] | | | | | | [address] | | | | | | [phone] | | | | | | | | +--------+ + + + + documented as of this encounter Visit Diagnoses Not on filedocumented in this encounter"
--- OUTSIDE RECORDS SUMMARY | ~2019-01-02 | XMS | Encounter Summary ---
Demographics + + + | Address | [address] | | | [place] [address] | + + + | Home Phone [...] | | | | | [place] [address] | | + + + + + | Thania Mallory | ECON | [address] | | | | | [place] [address] | | + + + + + | Deidra Weldon | ECON | [address] | | | | | [place] | | | | | [address] | | + + + + + Care Team Providers + +------+ + | Care Irrigation System Installer Name | Role | Phone | + +------+ + | Jonathan Alonso MD | PCP | | + +------+ + Encounter Details +--------+------+ + + + | Date | Type | Department | Care Team | Description | +--------+------+ + + + | 01/20/ | Lab | [facility] at [facility] | | 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 [address] | | MEDICARE [address]28; [facility] | | | | [address] | | ([place] | | | | [place], [place]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; | | | | [address] | | Hemodialysis status | | | | [phone] | | ([facility]); Chronic | | | | | | kidney disease, | | | | | | stage V ([facility]) | +--------+------+ + + + [...] Denise | | | | | | [place], [place] | | | | | | [address] | | | | | | [phone] | | | | | | | [...] | e | 9:59 AM | MEDICARE [address] | procedure are in the | [...] the | | | | PST | ([facility] | results section. | | | [...] the | | | | PST | ([facility] | results section. | | | [...] the | | | | PST | ([facility] | results section. | | | [...] the | | | | PST | ([facility] | results section. | | | [...] the | | | | PST | ([facility] | results section. | | | [...] the | | | | PST | ([facility] | results section. | | | [...] the | | | | PST | ([facility] | results section. | | | [...] | + + + + + | [facility] - | [address] | [place] [address] | | | [place] | | | | + + + [...] [facility] | [address] | [place] [address] | | | SERVICES, CORE | PARK [...] SERVICES LABORATORY | [address] | [place] [address] | | | SERVICES, SPECIAL | PARK [...] + + + | [facility] | [address] | [place] [address] | | | DIAGNOSTIC | [address] [...] + | [facility] - | [address] | [place] [address] | | | [place] | | | | + + + [...] + | [facility] - | [address] | [place] [address] | | | [place] | | | [...] | + + + + + | [facility] - | [address] | [place] [address] | | | [place] | | | [...] | + + + + + | [facility] - | [address] | [place] [address] | | | [place] | | | [...] by | | | | | | [facility],[address] | | | | | | Pippa Sauceda, [facility],[place] | | | | | | [address] | | | | | | [phone].Anytime DD. | | | | | | annalee, [...] [facility] | [address] | [place], [place] | | | [facility] | | [address] | | + + + + [...] + + | [facility] - | [address] | [place] [address] | | | [place] | | | | + + + [...] by | | | | | | [facility],[address] | | | | | | [address] Sauceda, [place] | | | | | | [address] | | | | | | [phone].[facility]. | | | | | | Faisal mantilal, | | | | | | , [...] [facility] | [address] | [place], [place] | | | [facility] | | [address] | | + + + + + [...] [facility] | [address] | [place] [address] | | | SERVICES, CORE | PARK [...] | + + + + + | [email or web address] | [address] | [place] [address] | | | SERVICES, CORE | LONG [...] [facility] | [address] | [place] [address] | | | SERVICES, CORE | PARK [...] [facility] | [address] | [place] [address] | | | SERVICES, CORE | PARK [...] + + + + + | [facility] | [address] | [place] [address] | | | SERVICES, CORE | LONG [...] | | | LABORATORY | | | MALAYSIAN | | | SERVICES, | | | [...] [facility] | [address] | [place] [address] | | | SERVICES, CORE | PARK [...]
--- OUTSIDE RECORDS SUMMARY | ~2019-01-02 | XMS | Encounter Summary ---
Demographics + + + | Address | [address] | | | [place] [address] | + + + | Home [...] | | | | | [place] [address] | | + + + + + | Thania Mallory | ECON | [address] | | | | | [place] [address] | | + + + + + | Deidra Weldon | ECON | [address] | | | | | [place] | | | | | [address] | | + + + + + Care Team Providers + +------+ + | Care Delivery Room Supervisor Name | Role | Phone [...] | [address]NAL[address] [facility] | [facility] | | | | | Rd [place], [place] | [place], [place] | | | | | [address] | [address] | | | | | [phone] | | | +--------+ + + + [...] [place] | | | | | | [address] | | | | | | [phone] | | | | | | | [...] + + | [facility] - | [address] | [place] | [phone] | | [place] | | | | + + + + + documented in this encounter Visit Diagnoses Not on filedocumented in this encounter"
--- OUTSIDE RECORDS SUMMARY | ~2019-01-02 | XMS | Encounter Summary ---
Demographics + + + | Address | [address] | | | [place] [address] | + + + | Home Phone [...] | | | | | [place] [address] | | + + + + + | Thania Mallory | ECON | [address] | | | | | [place] [address] | | + + + + + | Deidra Weldon | ECON | [address] | | | | | [place] | | | | | [address] | | + + + + + Care Team Providers + +------+ + | Care Personal Insurance Advisor Name | Role | Phone | [...] [address] | | | | | [facility] | [place], [place] | | | | | [address] | [address] | | | | | Caro Chan Mailcode: | [phone] | | | | | [address] | | | | | | [place], [place] | | | | | | [address] | | | | | | [phone] | | | +--------+ + + + [...] [place] | | | | | | [address] | | | | | | [phone] | | | | | | | | +--------+ + + + + documented as of this encounter Visit Diagnoses Not on filedocumented in this encounter"
--- OUTSIDE RECORDS SUMMARY | ~2019-01-02 | XMS | Encounter Summary ---
Demographics + + + | Address | [address] | | | [place] [address] | + + + | Home Phone [...] | | | | | [place] [address] | | + + + + + | Thania Mallory | ECON | [address] | | | | | [place] [address] | | + + + + + | Deidra Weldon | ECON | [address] | | | | | [place] | | | | | [address] | | + + + + + Care Team Providers + +------+ + | Care Acquisition Analyst Name | Role | Phone | [...] Update | | | | ANNAL[address] [facility] | [facility] [address] | | | | | [place], [place] | [place], [place] | | | | | [address] | [address] | | | | | [phone] | [phone] | | | | | | | [...] Denise | | | | | | [place] | | | | | | [address] | | | | | | [phone] | | | | | | | | +--------+ + + + + documented as of this encounter Visit Diagnoses Not on filedocumented in this encounter"
--- OUTSIDE RECORDS SUMMARY | ~2019-01-02 | XMS | Clinical Summary ---
Demographics + + + | Address | [address] | | | [place] [address] | + + + | Home Phone [...] + + | Author | [facility] (Historical as of | | | 10-20-18) | + + + | Organization | [facility] (Historical as of | | | 10-20-18) [...] Team Providers + +------+ + | Care [employer]o [employer] Founder Name | Role | [...] | | | 2018 | | | SALES OPERATIONS SPECIALIST | | +--------+ + + + + [...] | Left: | SYNOVIS | | | [id number] | | 0.8x8cm - [id number]: | | Arm | | | | [...] | | | COVIDIEN | | | [id number] | | 23cmExplanted: Qty: 1 on | | | | | | [id number] / | | 04/08/2014 | | | | | | | | | | | | | | /[id number] | | | | | | | [...] | + +--------+ + + + | [facility] CARD PANEL W/O | STAT | 10/17/2018 [...] | | | | | performed at [facility], [address] | | | | [facility], | | | | | [place] [address] | | | + + + + + + + | Specimen | + + | Blood | + + + + + + + | Performing | Address | City/State/Zipcode | Phone Number | | Organization | | | | + + + + + | [facility] | [address] | [place] [address] | [phone] | | LABORATORY | Blvd. | | [...] CHEST 1 VIEW (10/17/2018); CHEST TWO VIEWS [id number] | | | (10/17/2018); FINDINGS: Compared to [...] VIEW | | (10/17/2018); CHEST TWO VIEWS 53732 (10/17/2018); | | FINDINGS: | | Compared [...] + + + + | [facility] | [address] | [place] [address] | | + + + + + [...] pleural space is punctured with an 5 Maori Kanichi Research Servicesesis | | | catheter. Fluid is aspirated [...] pleural space is punctured with an 5 Maori Yueh | | centesis catheter. Fluid is [...] [facility] | [address] | [place] [address] | | + + + + [...] + + + + | Calculated P Redding | 46 | degrees | [facility] | + + + + + | Calculated R Redding | 127 | degrees | [facility] | + + + + + | Calculated T Redding | 94 | degrees | [facility] | [address] | [place] [address] | | + + + + [...] performed | | | | | at [facility], [address] | | | | [address], | | | | | [place] [address] | | | | |Testing performed at [facility], [address] [facility], [place] [address] | | | | | | | | + + + + + + + | Specimen | + + | Blood | + + + + + + + | Performing | Address | City/State/Zipcode | Phone Number | | Organization | | | | + + + + + | [facility] | [address] | [place] [address] | [phone] | | LABORATORY | Blvd. | | | + + + + + Magnesium (10/18/2018 5:44 AM) + + + + + | Component | Value | Ref Range | Performed At | + + + + + | MAGNESIUM | 2.4Comment: Testing | 1.7 - 2.4 mg/dL | [facility] | | | performed at [facility], [address] | | LABORATORY | | | [facility], | | | | | [place] [address] | | | + + + + + + + | Specimen | + + | Blood | + + + + + + + | Performing | Address | City/State/Zipcode | Phone Number | | Organization | | | | + + + + + | [facility] | [address] | [place] [address] | [phone] | | LABORATORY | Blvd. | | [...] | | | | | performed at [facility], [facility] | | | | | [facility], | | | | | [place] [address] | | | + + + + + + + | Specimen | + + | Blood | + + + + + + + | Performing | Address | City/State/Zipcode | Phone Number | | Organization | | | | + + + + + | [facility] | [address] [place] [address] | [place] [address] | [phone] | | LABORATORY | Blvd. | | [...] performed at | | | | | [facility];[address] | | | | [address];[place] [address] | | | + + + + + + + | Specimen | + + | Blood | + + + + + + + | Performing | Address | City/State/Zipcode | Phone Number | | Organization | | | | + + + + + | [facility] | [address] | [place] [address] | | + + + + + [...] HOSPITAL LABORATORY | | | performed at [facility];[address] | | | | | [employer];[place] | | | | | [address] | | | + + + + + + + | Specimen | + + | Blood | + + + + + + + | Performing | Address | City/State/Zipcode | Phone Number | | Organization | | | | + + + + + | [facility] | [address] | [place] [address] | | + + + + + [...] | performed at [facility] | | | | | Nica Caputo;[place], [place] | | | | | [address] | | | + + + + + + + | Specimen | + + | Blood | + + + + + + + | Performing | Address | City/State/Zipcode | Phone Number | | Organization | | | | + + + + + | [facility] | [address] | [place] [address] | | + + + + + [...] [facility] | [address] | [place] [address] | | + + + + + [...] + + + + | Calculated P Redding | 33 | degrees | [facility] | + + + + + | Calculated R Redding | -22 | degrees | [facility] | + + + + + | Calculated T Redding | 92 | degrees | [facility] | + + + + + | Diagnosis | Sinus | | [facility] | | | tachycardiaNonspecific T [...] (500), | | | | | editor city Daniela Esquivel | | | | | (18) on 10/17/2018 | | | | | 9:07:21 AM | | | + + + + + + + + + + | Performing | Address | City/State/Zipcode | Phone Number | | Organization | | | | + + + + + | [facility] | [address] | [place] [address] | | + + + + + Cardiac Panel (10/17/2018 3:49 AM) + + + + + | Component | Value | Ref Range | Performed At | + + + + + | WBC | 6.63 | 3.80 - 11.00 K/uL | [facility] | + + + + + | RBC | 3.07 (L) | 3.70 - 5.10 M/uL | [facility] | + [...] (H) | 37 - 53 fl | [facility] | + + + + + | PLT | 158 | 150 - 400 K/uL | [facility] | + + + + + | MPV | 10.2 | fl | [facility] | + + + + + | DIFF TYPE | AUTOMATED | | [facility] | + + + + + | NEUTROPHILS | 70.67 | % | [facility] | + + + + + [...] 142 | 135 - 145 mmol/L | [facility] | + + + + + | POTASSIUM | 5.5 (H)Comment: SLT | 3.5 - 4.9 mmol/L | [facility] | | | HEMOLYSIS | | [...] 0.6 | 0.1 - 1.5 mg/dL | [facility] | + + + + + | ALK PHOS | 85 | 35 - 115 U/L | [facility] | + + + + + | AST | 40 | 10 - 45 U/L | [facility] | + + + + + | ALT | 31 | 10 - 65 U/L | [facility] | + [...] performed at | | | | | [facility];[address] [place] [address] | | | | | [facility];[place] [address] | | | + + + + + + + + + + | Performing | Address | City/State/Zipcode | Phone Number | | Organization | | | | + + + + + | [facility] | [address] | [place] [address] | | + + + + + Brain natriuretic peptide (10/17/2018 3:49 AM) + + + + + | Component | Value | Ref Range | Performed At | + + + + + | BRAIN NATRIURETIC | 1,151.26 (H)Comment: | 0 - 100 pg/mL | [facility] | | PEPTIDE | Testing performed at | | | | | [facility];[address] | | | | | [place] [address] | | | + + + + + + + + + + | Performing | Address | City/State/Zipcode | Phone Number | | Organization | | | | + + + + + | [facility] | [address] | [place] [address] | | + + + + + ED INFORMATION EXCHANGE (10/17/2018 1:10 AM) + + + | Narrative | Performed At | + + + | [id number]:SHONDA [id number] Criteria Met Care | ED | | [...] | | | Medical/Surgical 05/28/18 12:00 AM [facility] | | | PATIENT HAS AN APT WITH PCP DR NICHOLSON ON 09/11/18. | | | PATIENT DIVER TENDER- DR [phone] Patient is | | | currently established with [facility]. If patient is seen in | | | the ED during business hours. Please contact CHWs at [facility] | | | [facility]. Care Recommendation: This patient has [...] | mo.) Facility Visits [facility] Acuity [facility] 4 0 | | | [facility] 12 0 Total 16 0 Note: Visits [...] | or Chief Complaint Oct 17, 2018 [facility] [place] [place] | | | Emergency Oct 16, 2018 [facility] [place] [facility] [place] | | | Emergency Chief Complaint: EXCESS FLUID Aug 20, 2018 [facility]. | | | [facility] [place] Emergency Dependence on renal dialysis | | | Chronic kidney disease, unspecified Allergy status to | | | other drugs, medicaments and biological substances status | | | Chronic pulmonary edema Other ad terminal makeup operator (current) drug therapy | | | Allergy status to narcotic agent status Dyspnea, | | | unspecified Radiographic dye allergy status Aug 13, 2018 | | | [facility] [place] [facility] [place] Emergency Allergy status to [...] | | | unspecified Aug 13, 2018 [facility] | | | Emergency July 18, 2018 [facility] | | | Emergency Cough Pneumonia Hypoxemia | | | Pleural effusion, not elsewhere classified Fever, unspecified | | | Personal history of other diseases of urinary system May | | | 2018 [facility] [place] [facility] [place] Emergency Personal | | [...] unspecified Heart | | | failure, unspecified [facility] (current) use of opiate | | | analgesic Allergy status to other drugs, medicaments and | | | biological substances status Radiographic dye allergy status | | | Other ad terminal makeup operator (current) drug therapy Jun 12, 2018 [facility] | | | [place] [facility] [place] [place] Emergency Shortness of breath | | | Fluid overload, unspecified Hyperkalemia Radiographic | | | dye allergy status Allergy status to narcotic agent status | | | Other long-term (current) 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 Allergy status to | [...] | Personal history of nicotine dependence Other ad terminal makeup operator | | | (current) drug therapy rn long term care (current) use of opiate | | | analgesic Recent Inpatient Visit Summary Date Facility | | | [facility] State Type Diagnoses or Chief Complaint Aug 20, 2018 [facility] | | | [facility] General Medicine Pleural Effusion | | | Chronic pulmonary edema July 18, 2018 [facility] | | | [facility] General Medicine Hypoxemia Personal history | | | of other diseases of urinary system Fever, unspecified | | | Pleural effusion, not elsewhere classified End stage renal | | | disease Dependence on renal dialysis Anemia in chronic | | | kidney disease Pulmonary hypertension, unspecified | | | Chronic right heart failure May 26, 2018 [facility] | | | [facility] General Medicine Acute respiratory distress | [...] registered | | | at the [facility] Emergency Department For more | | | information visit: | | | [email or web address] | | | [email or web address] PLEASE NOTE: 1. [...] | | completeness of information provided. 2019 My1login | | | [employer]. - www.[email or web address] Competence | | + + + + + | Procedure Note | + + | Interface, Lab - 10/17/2018 1:12 AM PDT Formatting of this note may be different | | from the original.[id number] Met Care Guidelines 10 in | | 12 2 in 2Security and SafetyNo recent Security Events currently on fileED Care | | GuidelinesThere are currently no ED Care Guidelines for this patient. Please check your | | facility's medical records system.Care HistoryMedical/Surgical05/28/18 12:00 AM [facility]. | | [facility] PATIENT HAS AN APT WITH PCP DR NICHOLSON ON 09/11/18. PATIENT | | DIVER TENDER- DR [phone] Patient is currently established with | [facility]. If patient is seen in the ED during business hours. Please contact CHWs | | at [facility].Care Recommendation:This patient has had 5 [...] Visit Count (12 mo.)Facility Visits [facility] | | Center 4 0 [facility] 12 0 Total 16 0 Note: Visits [...] Chief | | Complaint Oct 17, 2018 [facility] [place] Emergency Oct 16, 2018 [facility]. | | [facility] [place] Emergency Chief Complaint: EXCESS FLUID Aug 20, [address] | | [facility] [place] Emergency Dependence on renal dialysis Chronic kidney | | disease, unspecified Allergy status to other drugs, medicaments and biological | | substances status Chronic pulmonary edema Other ad terminal makeup operator (current) drug therapy | | Allergy [...] dialysis Chest pain, unspecified Aug 13, 2018 [facility] | | Emergency July 18, 2018 [facility] Emergency Cough Pneumonia | | Hypoxemia [...] overload, unspecified | | Heart failure, unspecified rn long term care (current) use of opiate analgesic Allergy | | status to other drugs, medicaments and biological substances status Radiographic dye | | allergy status Other long-term (current) 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 Jun 12, 2018 [facility] | | [facility] [place] [place] Emergency Shortness of breath Fluid overload, unspecified | | Hyperkalemia Radiographic dye allergy status Allergy status to narcotic agent | | status Other long-term (current) 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 Allergy status to other [...] long | | term (current) 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 [facility] (current) use of opiate analgesic Recent | | Inpatient Visit SummaryDate Facility City State Type Diagnoses or Chief Complaint Aug | | [facility] Pleural Effusion Chronic | | pulmonary [facility] | | Hypoxemia Personal history of other diseases of urinary system Fever, unspecified | | Pleural effusion, not elsewhere classified End stage renal disease Dependence | | on renal dialysis Anemia in chronic kidney disease Pulmonary hypertension, | | unspecified Chronic right heart failure [facility] Acute respiratory distress Chest pain, unspecified Pleural | | effusion, not elsewhere classified Other ascites Dependence on renal dialysis | | Hyperkalemia Other disorders of phosphorus metabolism End stage renal disease | | Other specified personal risk factors, not elsewhere classified Acute systolic | | (congestive) heart failure Care TeamProvider [facility] Type Phone Fax Service Dates [facility], | | TIEN Gallagher MD Internal Medicine May 28, 2018 - [facility] | | has registered at the [facility] Emergency Department For more | | information visit: | | [id number] PLEASE | | NOTE: 1. Any care [...] or completeness of information | | provided.2019 [employer]. - www.Core Competence | | Personal history of other diseases [...] status | | | |Jun 19, 2018 [facility] [place] Emergency | | Other chest pain | | End stage renal disease | | Dependence on renal dialysis | | Personal history of nicotine dependence | | Fluid overload, unspecified | | Heart failure, unspecified | | rn long term care (current) use of opiate analgesic | | Allergy status to other drugs, medicaments and biological substances status | | Radiographic dye allergy status | | Other long-term (current) 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 | | | |Jun 12, 2018 [facility] [place] Emergency | | Shortness of breath | | Fluid overload, unspecified | | Hyperkalemia | | Radiographic dye allergy status | | Allergy status to narcotic agent status | | Other long-term (current) 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 | | Allergy status to other drugs, medicaments and biological substances status | | Unspecified asthma, uncomplicated | | Dependence on renal dialysis | | Chronic kidney disease, unspecified | | | |Jun 11, 2018 [facility] [place] Emergency | | Chronic pulmonary edema | | Shortness of breath | | Radiographic dye allergy status | | Personal history of nicotine dependence | | Other long-term (current) 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 | | [facility] (current) use of opiate analgesic | | | | | | | |Recent Inpatient Visit Summary | |Date Facility City State Type Diagnoses or Chief Complaint | |Aug 20, 2018 [facility] [place] [place] General Medicine | | Pleural Effusion | | Chronic pulmonary edema | | | |[facility] | | Hypoxemia | | Personal history of other diseases of urinary system | | Fever, unspecified | | Pleural effusion, not elsewhere classified | | End stage renal disease | | Dependence on renal dialysis | | Anemia in chronic kidney disease | | Pulmonary hypertension, unspecified | | Chronic right heart failure | | | |May 26[facility] | | Acute respiratory [...] 28, 2018 - Current | | | |DewMobile Portal | |This patient has registered at the [facility] Emergency Department | |For more information visit: [id number] | |PLEASE NOTE: | | 1. Any [...] of information provided. | | | |2019 [employer]. - www.Core Competence | + + + +---------+ + + [...] +------+-------+ + | MEDICARE | MEDICA | [id number] | | | [address] | | | RE | | | | [place] [address] | | | IP-OP | | | | | + +--------+ +------+-------+ + | MEDICAID | JEWEL | [id number] | | | [address] | | | N | | | | [place] | | | [place] | | | | [address] | | | BOMB LOADER | | | | | + +--------+ [...] | | al/Fam | | 1994 | [phone] | [address] [place] | | | kamron | | | [phone] | [phone] | + +--------+ +--------+ + +
--- OUTSIDE RECORDS SUMMARY | ~2019-01-02 | XMS | Encounter Summary ---
Demographics + + + | Address | [address] | | | [place] [address] | + + + | Home Phone [...] | | | | | [place] [address] | | + + + + + | Thania Mallory | ECON | [address] | | | | | [place] [address] | | + + + + + | Deidra Weldon | ECON | [address] | | | | | [place] | | | | | [address] | | + + + + + Care Team Providers + +------+ + | Care Turf And Grounds Supervisor Name | Role | Phone | [...] pt's living/support | | | | Rd [place], [place] | [place] | situation) | | | | [address] | [address] | | | | | [phone] | | | +--------+ + + + [...] Denise | | | | | | [place] | | | | | | [address] | | | | | | [phone] | | | | | | | | +--------+ + + + + documented as of this encounter Visit Diagnoses Not on filedocumented in this encounter"
--- OUTSIDE RECORDS SUMMARY | ~2019-01-02 | XMS | Encounter Summary ---
Demographics + + + | Address | [address] | | | [place] [address] | + + + | Home Phone [...] | | | | | [place] [address] | | + + + + + | Thania Mallory | ECON | [address] | | | | | [place] [address] | | + + + + + | Deidra Weldon | ECON | [address] | | | | | [place] | | | | | [address] | | + + + + + Care Team Providers + +------+ + | Care Facility Engineer Name | Role | Phone | [...] on pt's | | | | Rd [place], [place] | [place], [place] | support plan & | | | | [address] | [address] | social changes) | | | | [phone] | | | +--------+ + + + [...] Denise | | | | | | [place], [place] | | | | | | [address] | | | | | | [phone] | | | | | | | | +--------+ + + + + documented as of this encounter Visit Diagnoses Not on filedocumented in this encounter"
--- OUTSIDE RECORDS SUMMARY | ~2019-01-02 | XMS | Encounter Summary ---
Demographics + + + | Address | [address] | | | [place] [address] | + + + | Home Phone [...] | | | | | [place] [address] | | + + + + + | Thania Mallory | ECON | [address] | | | | | [place] [address] | | + + + + + | Deidra Weldon | ECON | [address] | | | | | [place] | | | | | [address] | | + + + + + Care Team Providers + +------+ + | Care Recyclable Materials Distributor Name | Role | Phone | [...] | Family sheet) | | | | [address] | [address] | | | | | Caro [place] Mailcode: | [place], [place] | | | | | [address] Physician's | [address] | | | | | [address] | [phone] | | | | | [place], [place] | | | | | | [address] | | | | | | [phone] | | | +--------+ + + + [...] Denise | | | | | | [place] | | | | | | [address] | | | | | | [phone] | | | | | | | | +--------+ + + + + documented as of this encounter Visit Diagnoses Not on filedocumented in this encounter"
--- OUTSIDE RECORDS SUMMARY | ~2019-01-02 | XMS | Encounter Summary ---
Demographics + + + | Address | [address] | | | [place] [address] | + + + | Home Phone [...] | | | | | [place] [address] | | + + + + + | Thania Mallory | ECON | [address] | | | | | [place] [address] | | + + + + + | Deidra Weldon | ECON | [address] | | | | | [place] | | | | | [address] | | + + + + + Care Team Providers + +------+ + | Care Notch Machine Operator Name | Role | Phone [...] Everywher | | | | ANNALISA [facility] | [address] | Query) | | | | Rd [place], [place] | [place], [place] | | | | | [address] | [address] | | | | | [phone] | [phone] | | | | | | | [...] [place] | | | | | | [address] | | | | | | [phone] | | | | | | | | +--------+ + + + + documented as of this encounter Visit Diagnoses Not on filedocumented in this encounter"
--- OUTSIDE RECORDS SUMMARY | ~2019-01-02 | XMS | Encounter Summary ---
Demographics + + + | Address | [address] | | | [place] [address] | + + + | Home Phone [...] | | | | | [place] [address] | | + + + + + | Thania Mallory | ECON | [address] | | | | | [place] [address] | | + + + + + | Deidra Weldon | ECON | [address] | | | | | [place] | | | | | [address] | | + + + + + Care Team Providers + +------+ + | Care Honeycomb Blanket Maker Name | Role | Phone | [...] Requested | | | | [address] | [facility] | | | | | [facility] | [place], [place] | | | | | [address] [place] | [address] | | | | | [facility] Mailcode: | | | | | | [address] | | | | | | [place], [place] | | | | | | [address] | | | | | | [phone] | | | +--------+ + + + [...] [place] | | | | | | [address] | | | | | | [phone] | | | | | | | | +--------+ + + + + documented as of this encounter Visit Diagnoses Not on filedocumented in this encounter"
--- OUTSIDE RECORDS SUMMARY | ~2019-01-02 | XMS | Encounter Summary ---
Demographics + + + | Address | [address] | | | [place] [address] | + + + | Home Phone [...] | | | | | [place] [address] | | + + + + + | Thania Mallory | ECON | [address] | | | | | [place] [address] | | + + + + + | Deidra Weldon | ECON | [address] | | | | | [place] | | | | | [address] | | + + + + + [...] attempt(s) to | | | | Rd [place], [place] | [place], [place] | contact pt re move | | | | [address] | [address] | and new PAF as | | | | [phone] | | listed) | +--------+ + + [...] Denise | | | | | | [place], [place] | | | | | | [address] | | | | | | [phone] | | | | | | | | +--------+ + + + + documented as of this encounter Visit Diagnoses Not on filedocumented in this encounter"
--- OUTSIDE RECORDS SUMMARY | ~2019-01-02 | XMS | Encounter Summary ---
Demographics + + + | Address | [address] | | | [place] [address] | + + + | Home Phone [...] | | | | | [place] [address] | | + + + + + | Thania Mallory | ECON | [address] | | | | | [place] [address] | | + + + + + | Deidra Weldon | ECON | [address] | | | | | [place] | | | | | [address] | | + + + + + Care Team Providers + +------+ + | Care Operations Manager Assistant Name | Role | Phone | [...] | Nephrology at | MD Emanuel [address] [facility] | Requested (UDS) | | | | Alexander | [address] | | | | | [facility] | [place], [place] | | | | | [address] | [address] | | | | | Caro Chan Mailcode: | [phone] | | | | | [address] | | | | | | [place], [place] | | | | | | [address] | | | | | | [phone] | | | +--------+ + + + [...] Denise | | | | | | [place] | | | | | | [address] | | | | | | [phone] | | | | | | | | +--------+ + + + + documented as of this encounter Visit Diagnoses Not on filedocumented in this encounter"
--- OUTSIDE RECORDS SUMMARY | ~2019-01-02 | XMS | Encounter Summary ---
Demographics + + + | Address | [address] | | | [place] [address] | + + + | Home Phone [...] Author | [facility] | | | and Josephana | + + + | Organization | [facility] | | [...] Providers + +------+ + | Care Farm Machinery Set Up Mechanic Name | Role | Phone | + +------+ + | Tien Nicholson MD | PCP | | + +------+ + Encounter Details +--------+ + + + + | Date | Type | Department | Care Team | Description | +--------+ + + + + | 10/17/ | Hospital | [facility] | Nikita, | SOB (shortness of | | 2019 - | Encounter | [facility] | MD Naresh [address] | breath); Pleural | | | | CARE FLOOR [address] | effusion on right; | | 10/20/ | | [address] | [place] [address] | ESRD needing | | 2019 | | [place], [place] | [phone] | dialysis ([facility]); End | | | | [address] | | stage renal disease | | | | [phone] | | ([facility]) | +--------+ + + [...] + + +---------+ + + | B Yncfwjq-Z-Fbetx | Take 1 tablet by | | [...] 10/19/182357 Date of Service: 10/19/182357 Status: Signed Belt Fixer: Vira Ford RN (Registered Nurse) No acute [...] 10/19/181827 Date of Service: 10/19/181826 Status: Signed Belt Fixer: Trent Jovel RN (Registered Nurse) Dialysis completed today 2.4L removed. Remains on fluid restriction. Medicated for pain x 2. End of shift review complete. Trent Jovel RN onversio n Transaction, Provider Unknown - 10/19/2018 1536 PDTFormatting of this note might be differ ent from the original. Case Management by DORON Diallo at 10/19/18 1536 Author: DORON Diallo Service: (none) Author Type: Television Mechanic Filed: 10/19/18 1537 Date of Service: 10/19/18 1536 Status: Signed Belt Fixer: DORON Diallo (Television Mechanic) Discharge planning: Return home when medically ready for discharge. Pt is receiving dialysi s on MWF. Pt is currently on 4L O2, pt may need a home O2 evaluation at discharge. ipul Pabon MD - 10/19/2018 1214 PDT Progress Notes by Anotnio Pabon MD at 10/19/18 1214 Author: Antonio Pabon MD Service: Nephrology Author Type: Physician Filed: 10/25/18 3852 Date of Service: 10/19/18 1214 Status: Addendum Belt Fixer: Antonio Pabon MD (Physician) Related Notes: Original Note by Antonio Pabon MD (Physician) filed at 10/25/18 6151 [facility] Service: NEPHROLOGY Progress Note Dara Weldon 23 y.o. [id number] [id number] female TIEN NICHOLSON 23-year-old female with [...] AV FISTULA; Surgeon: Rik Simon MD; Location: [facility] MAIN OR; Service: Vascula r; Laterality: Left; cephalic AV FISTULA REPAIR Left 03/07/2014 Procedure: AV FISTULA - GRAFT REPAIR/REVISION; Surgeon: Rik Simon MD; Location: [facility] MA IN OR; Service: Vascular; Laterality: Left; DECLOT GRAFT Left 03/07/2014 Procedure: GRAFT - DECLOT; Surgeon: Rik Simon MD; Location: [facility] MAIN OR; Service: Vas cular; Laterality: Left; DIALYSIS FISTULA CREATION N/A 04/08/2014 Procedure: DIALYSIS CATHETER - INSERTION; Surgeon: Rik Simon MD; Location: [facility] MAIN OR ; Service: Vascular; Laterality: N/A; tunneled catheter LAPAROSCOPIC PERITONEAL DIALYSIS CATHETER INSERTION x2 LAPAROSCOPIC PERITONEAL DIALYSIS CATHETER INSERTION Right 07/2013 current dialysis access MWF dialysis RENAL BIOPSY Left 2003 SUPERFICIALIZATION OF AV FISTULA Left 06/24/2014 Procedure: AV FISTULA - SUPERFICIALIZATION; Surgeon: Rik Simon MD; Location: [facility] MAIN OR; Service: Vascular; [...] file Social History Narrative She lives in [facility]. She does not work. She has 1 [...] ral space is punctured with an 5 Ug[place] [employer] centesis catheter. Fluid is aspirated without complication. [...] 1 VIEW (10/17/2018); CHEST TWO V IEWS 58441 (10/17/2018); FINDINGS: Compared to the prior examination [...] MR, severe TR.severe pulmonary hypertens ion Chest n-thg-zologcjcxxol with pulmonary edema and large right pleural [...] earlier and charting completed later Dictation software, Univa UD, used which may contain error for similar sounding words even af ter review. Personal communication requested for any clarification. inci, MD Gerber - 48 PDT Progress Notes by Gerber Pearson MD at 10/19/1848 Author: Gerber Pearson MD Service: Hospitalist Author Type: Physician Filed: 10/19/18 0753 Date of Service: 10/19/1848 Status: Signed Belt Fixer: Gerber Pearson MD (Physician) [facility] Service: Hospitalist Progress [...] at [facility] in [place] on 08/21 where she underwent right th [...] BUN 90 on admission -History of a [place] Schnlein purpura -Last hemodialysis approximately 2 weeks [...] 10/19/18733 Date of Service: 10/19/18733 Status: Signed Belt Fixer: Vira Ford RN (Registered Nurse) No acute [...] Author: DORON Diallo Service: (none) Author Type: Television Mechanic Filed: 10/18/181706 Date of Service: 10/18/181700 Status: Signed Belt Fixer: DORON Diallo (Television Mechanic) Discharge planning: Return home when medically ready for discharge. Fr gela Fernandez MD - 10/18/201846 PDTFormatting of this note might be different from the origina l. Progress Notes by Gerber Pearson MD at 10/18/18745 Author: Gerber Pearson MD Service: Hospitalist Author Type: Physician Filed: 10/18/18 075 Date of Service: 10/18/18745 Status: Signed Belt Fixer: Gerber Pearson MD (Physician) [facility] Service: Hospitalist Progress [...] at the [facility] at [facility] in [place] on 08/21 where she underwent right th [...] BUN 90 on admission -History of a [place] Schnlein purpura -Last hemodialysis approximately 2 weeks [...] Notes by Antonio Pabon MD at 10/18/18 0762 Author: Antonio Pabon MD Service: Nephrology Author Type: Physician Filed: 10/25/182002 Date of Service: 10/18/18744 Status: Signed Belt Fixer: Antonio Pabon MD (Physician) [facility] Service: NEPHROLOGY Progress Note Dara Weldon 23 y.o. [id number] 4465/[id number] female [facility] Day: LOS: 1 day 23-year-old [...] AV FISTULA; Surgeon: Rik Simon MD; Location: [facility] MAIN OR; Service: Vascula r; Laterality: Left; cephalic AV FISTULA REPAIR Left 03/07/2014 Procedure: AV FISTULA - GRAFT REPAIR/REVISION; Surgeon: Rik Simon MD; Location: [facility] IN OR; Service: Vascular; Laterality: [...] [facility] OR; Service: Vascular; Laterality: Left; Prescriptions [...] file Social History Narrative She lives in [facility]. She does not work. She has 1 [...] QTC Calculation (Bezet) 469 ms Calculated P Depe[place] 46 degrees Calculated R De[place] 127 degrees Calculated T Depew 94 degrees Diagnosis Normal sinus rhythm Right [...] MR, severe TR.severe pulmonary hypertens ion Chest p-odq-fxpzrezusohl with pulmonary edema and large right pleural [...] earlier and charting completed later Dictation software, Univa UD, used which may contain error for similar [...] 10/18/1853 Date of Service: 10/18/18650 Status: Signed Belt Fixer: Ronnie Vargas RN (Registered Nurse) Pt alert and oriented X 4. PRN pain med given for back pain. No other acute changes durin g shift. Chart check complete onversio n Transaction, Provider Unknown - 10/17/2018 0948 PDTFormatting of this note might be differ ent from the original. Case Management by DORON Diallo at 10/17/1848 Author: DORON Diallo Service: (none) Author Type: Television Mechanic Filed: 10/17/1861 Date of Service: 10/17/18947 Status: Signed Belt Fixer: DORON Diallo (Television Mechanic) 10/17/18 0900 Discharge Planning Evaluation Admitting Diagnosis (SOB) Readmission Other (comment) (Last admit 08/20/18) Living Arrangements Alone Support Systems Family members;Friends/neighbors Type of Residence Private residence House type Apartment Independent with ADL's Yes Independent with Mobility Yes Home Care Services No Caregiver after Discharge No Mental Status Oriented Prior functional status (Independent) Power of Candy Dipper No Resources Financial concerns No Transportation issues No Patient/Family concerns No Prescription Plan Yes Name of Pharmacy ([facility] in [place]) Previous home health equipment No Anticipated Disposition Facility Type Home MACHINE BINDING FOLDER CM met with pt and discussed discharge planning. Pt is a 23 y.o., female admitted for s hortness of breath. Pt resides alone in an apartment at [address] [place] [address]. Pt reported that she has neighbor and friend support. Pt's mother, Thania cheung can be reached at and sister, Saundra can be reached at . Pt reported being independent with ADL's,, IADL's and mobility prior to this admission. Pt denied previous outpatient OT/PT services, home care services and home O2 prior to this admission. Pt reported that she received [facility] on MWF prior to this admission . [...] 10/17/18743 Date of Service: 10/17/18743 Status: Signed Belt Fixer: Camilla Moody RPH (Pharmacist) Clinical Pharmacy Note: [...] 10/17/18746 Date of Service: 10/17/18716 Status: Signed Belt Fixer: Gerber Pearson MD (Physician) [facility] Service: Hospitalist Progress [...] at the [facility] at [facility] in [place] on 08/21 where she underwent right th [...] the case over the phone with patient's academic associate Dr. Mahmood, recommends medi oly management and [...] creatinine 14, BUN 90 -History of a [place] Schnlein purpura -Last hemodialysis approximately 2 weeks [...] [address] | | | | | | [place] [address] | | | | | | [phone] | | | | | | | [...] [address], | | | | | | [place] [address] | | | | + + + [...] CHEST 1 VIEW (10/17/2018); CHEST TWO VIEWS 05471 | | | (10/17/2018); FINDINGS: Compared to [...] VIEW | | (10/17/2018); CHEST TWO VIEWS 65627 (10/17/2018); | | FINDINGS: | | Compared [...] pleural space is punctured with an 5 Ugandan [employer] centesis | | | catheter. Fluid [...] pleural space is punctured with an 5 Ugandan [employer] | | centesis catheter. Fluid is [...] | | | | | at [facility], [address] | | | | | | [address], | | | | | | [place] [address] | | | | | |Testing performed at [facility], [address] [place] [address] | | | | | | | [...] EXTERNAL | | | | performed at [facility], [address] | | LAB | | | | [address], | | | | | | [place] [address] | | | | + + + [...] | | | | | performed at [facility], [address] | | | | | | [facility], | | | | | | [place] [address] | | | | + + + [...] | [facility];[address] [place] [address] | | | | | | [facility];[place] [address] | | | | + + + [...] Jiménez | | | | | | [address] | | | | + + + [...] | [facility];[address] [place] [address] | | | | | | [facility];[place] [address] | | | | + + + [...] | LAB | | | | [address];[place] | | | | | | [address] | | | | + + + [...] [place] | | | | | | [address] | | | | + + + [...] | [facility];[address] [place] [address] | | | | | | Blvd;[place] [address] | | | | + + + [...] [facility];[address] [facility] | | | | | | [facility];[place] [address] | | | | + + + [...] | [facility];[address] [place] [address] | | | | | | [place] [address] | | | | + + + [...]
--- OUTSIDE RECORDS SUMMARY | ~2019-01-02 | XMS | Encounter Summary ---
Demographics + + + | Address | [address] | | | [place] [address] | + + + | Home Phone [...] [address] | | | | | [place] [address] | | + + + + + | Thania Mallory | ECON | [address] | | | | | [place] [address] | | + + + + + | Deidra Weldon | ECON | [address] | | | | | [place] | | | | | [address] | | + + + + + Care Team Providers + +------+ + | Care Patient Scheduler Name | Role | Phone | [...] | | [facility] | [facility] | | | | | Rd [place], [place] | [place], [place] | | | | | [address] | [address] | | | | | [phone] | | | +--------+ + + + [...] [place] | | | | | | [address] | | | | | | [phone] | | | | | | | | +--------+ + + + + documented as of this encounter Visit Diagnoses Not on filedocumented in this encounter"
--- OUTSIDE RECORDS SUMMARY | ~2019-01-02 | XMS | Encounter Summary ---
Demographics + + + | Address | [address] | | | [place] [address] | + + + | Home Phone [...] | | | | | [place] [address] | | + + + + + | Thania Mallory | ECON | [address] | | | | | [place] [address] | | + + + + + | Deidra Weldon | ECON | [address] | | | | | [place] | | | | | [address] | | + + + + + Care Team Providers + +------+ + | Care Branch Specialist Name | Role | Phone | [...] | | | | | [address], | | | | | | [place] [address] | | | +--------+ + + + [...] Denise | | | | | | [place], [place] | | | | | | [address] | | | | | | [phone] | | | | | | | [...] DANILO - | [address], | [place] [address] | | | IMMUNOGENETICS/TRANS | [address] | | | | [facility] | | | | + + + + + documented in this encounter Visit Diagnoses Not on filedocumented in this encounter"
--- OUTSIDE RECORDS SUMMARY | ~2019-01-02 | XMS | Encounter Summary ---
Demographics + + + | Address | [address] | | | [place] [address] | + + + | Home Phone [...] | | | | | [place] [address] | | + + + + + | Thania Mallory | ECON | [address] | | | | | [place] [address] | | + + + + + | Deidra Weldon | ECON | [address] | | | | | [place] | | | | | [address] | | + + + + + Care Team Providers + +------+ + | Care Iron Caster Name | Role | Phone | + [...] form) | | | | [address] [facility] [facility] | [facility] | | | | | Rd [place], [place] | [place] | | | | | [address] | [address] | | | | | [phone] | | | +--------+ + + + [...] | | | | | [place] | | | | | | [address] | | | | | | [phone] | | | | | | | | +--------+ + + + + documented as of this encounter Visit Diagnoses Not on filedocumented in this encounter"
--- OUTSIDE RECORDS SUMMARY | ~2019-01-02 | XMS | Encounter Summary ---
Demographics + + + | Address | [address] | | | [place] [address] | + + + | Home Phone [...] | | | | | [place] [address] | | + + + + + | Thania Mallory | ECON | [address] | | | | | [place] [address] | | + + + + + | Deidra Weldon | ECON | [address] | | | | | [place] | | | | | [address] | | + + + + + Care Team Providers + +------+ + | Care Thread Inspector Name | Role | Phone | [...] Mailcode: | | | | | | [address] | [address] | | | | | | [address] | [place] | | | | | | [place], | [place], [place] | | | | | | [place] | [address] | | | | | | [address] | Phone: | | | | | | Phone: | [phone] | | | | | | [phone] | | | | | | | Fax: | | | | | | | [phone] | | +--------+--------+ + + + + Encounter Details +--------+---------+ + + + | Date | Type | Department | Care Team | Description | +--------+---------+ + + + | 01/20/ | Office | Specialty Clinics | Sudhakar Joy | [facility] | | 2014 | Visit | at [facility] [address] MD [address] | ([place] | | | | [address] | [address] | purpura) nephritis | | | | Mailcode: DC7 | [place], [place] | (Primary Dx); | | | | [place] | [address] | Allergic purpura- | | | | [place], [place] | [phone] | [address]ICARE [address]; | | | | [address] | | Anemia of chronic | | | | [phone] | | kidney failure, | | | [...] [address] Mail code [facility] [place], [place] [id number] documented in this encounter Plan of Treatment +--------+ + + + + | Date | Type | Specialty | Care Team | Description | +--------+ + + + + | 05/04/ | Hospital | Adult Acute Care | El Starr MD | | | 2022 | Encounter | | [address] | | | | | | [place], [place] | | | | | | [address] | | | | | | [phone] | | | | | | | [...]
--- OUTSIDE RECORDS SUMMARY | ~2019-01-02 | XMS | Encounter Summary ---
Demographics + + + | Address | [address] | | | [place] [address] | + + + | Home Phone [...] | | | | | [place] [address] | | + + + + + | Thania Mallory | ECON | [address] | | | | | [place] [address] | | + + + + + | Deidra Weldon | ECON | [address] | | | | | [place] | | | | | [address] | | + + + + + Care Team Providers + +------+ + | Care Quality Process Auditor Name | Role | Phone | [...] | | [facility] | [place], [place] | | | | | [address] | [address] | | | | | [address] Mailcode: | [phone] | | | | | [address] | | | | | | [place], [place] | | | | | | [address] | | | | | | [phone] | | | +--------+ + + + [...] Denise | | | | | | [place], [place] | | | | | | [address] | | | | | | [phone] | | | | | | | | +--------+ + + + + documented as of this encounter Visit Diagnoses Not on filedocumented in this encounter"
--- OUTSIDE RECORDS SUMMARY | ~2019-01-02 | XMS | Encounter Summary ---
Demographics + + + | Address | [address] | | | [place] [address] | + + + | Home Phone [...] | | | | | [place] [address] | | + + + + + | Thania Mallroy | ECON | [address] | | | | | [place] [address] | | + + + + + | Deidra Weldon | ECON | [address] | | | | | [place] | | | | | [address] | | + + + + + Care Team Providers + +------+ + | Care Trauma Coordinator Name | Role | Phone | [...] (Immunizations) | | | | [address] [facility] | [facility] | | | | | Rd [place], [place] | [place], [place] | | | | | [address] | [address] | | | | | [phone] | | | +--------+ + + + [...] | | | | | | [place], [place] | | | | | | [address] | | | | | | [phone] | | | | | | | | +--------+ + + + + documented as of this encounter Visit Diagnoses Not on filedocumented in this encounter"
--- OUTSIDE RECORDS SUMMARY | 2019-01-02 11:20 | XMS ---
PreManage Notification: CONOR LOUISE Security Report Clerk Events No recent Security Events currently on file CRITERIA MET - 6 ED Visits in 6 Months - [facility] - Has Care Guidelines - [facility] - 2 Visits in 30 Days CARE PROVIDERS TIEN NICHOLSON Internal Medicine 05/28/2018-Current PHONE: Unknown Karena has no Care Guidelines for this patient. Care History Medical/Surgical 11/29/2018 [facility] ED CASE MANAGEMENT CONSULT RECEIVED- CHW PROVIDED TO BASIL- W OF [facility] FOR HIGH RISK FOLLOW UP. 11/07/[address] [facility] [address] Nicholson has not seen Pt since 06/08/2018. 07/12/2018 \R\ Pt canceled appt w/ Dr Nicholson 07/18/2018 \R\ Pt LWOS in [facility] 08/18/2018 \R\ Pt canceled appt w/ Dr Nicholson 09/12/19. \R\ Pt was N/S for appt w/ Dr Nicholson 05/28/2018 [facility] - PATIENT HAS AN APT WITH PCP DR NICHOLSON ON 09/11/18. - PATIENT TIPPLE BOSS- DR HINSON- [phone] - Patient is currently established with [facility]. If patient is seen in the ED during business hours. Please contact CHWs at [facility]. Care Recommendation: This patient has had [...] providing care. E.D. VISIT COUNT (12 MO.) 5 [facility] 17 [facility] [place] TOTAL 22 NOTE: Visits indicate total known visits. ED/C VISIT TRACKING (12 MO.) 01/02/2019 11:17 [place] TYPE: Emergency COMPLAINT: - CHEST PAIN, SOB [facility] [place] TYPE: Emergency DIAGNOSES: - Personal history of other diseases of the digestive system - Pericardial effusion (noninflammatory) - Chronic combined systolic and diastolic hrt fail - Chronic right heart failure - End stage renal disease - Nonrheumatic tricuspid (valve) insufficiency - Left ventricular failure, unspecified - Sepsis, unspecified organism Sepsis, u - Awaiting organ transplant status - Nonrheumatic mitral (valve) insufficiency - Acute and chronic respiratory failure with hypoxia - Other disorders of phosphorus metabolism - Dilated cardiomyopathy - Chest Pain - Ot personal risk factors, not elsewhere classified - Anemia in chronic kidney disease - [facility] history of dis of the bld/bld-form org/immun mechnsm - Chronic pulmonary edema - Acute respiratory failure with hypoxia - Dependence on renal dialysis - Lobar pneumonia, unspecified organism - Hyperkalemia - Hypoxemia - Patient's noncompliance w oth medical treatment and regimen - Acute and chronic respiratory failure with hypercapnia - Fluid overload, unspecified - Other ascites 12/09/2018 23:16 [facility] [place] TYPE: Emergency COMPLAINT: - CHEST PAIN, SOB DIAGNOSES: - Shortness of breath - Allergy status to narcotic agent status - Radiographic dye allergy status - Chronic pulmonary edema - Personal history of nicotine dependence - Other watermelon inspector (current) drug therapy 11/28/2018 09:12 [place] [place] TYPE: Emergency COMPLAINT: - SOB, BLOOD PRESSURE PROBLEM DIAGNOSES: - Allergy status to narcotic agent status - Allergy status to oth drug/meds/biol subst status - Chronic kidney disease, unspecified - Radiographic dye allergy status - Shortness of breath - Pleural effusion, not elsewhere classified - Other watermelon inspector (current) drug therapy - Personal history of nicotine dependence - Heart failure, unspecified 11/27/2018 21:50 [place] [place] TYPE: Emergency COMPLAINT: - SOB, POSS HIGH BLOOD PRESSURE DIAGNOSES: - Pleural effusion, not elsewhere classified - Dependence on renal dialysis - Allergy status to narcotic agent status - Patient's noncompliance w oth medical treatment and regimen - Allergy status to oth drug/meds/biol subst status - Radiographic dye allergy status - Other long-term (current) 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 - Heart failure, unspecified - Allergy status to analgesic agent status - Shortness of breath - Hypertensive heart disease with heart failure 11/06/2018 08:24 [place] [place] TYPE: Emergency COMPLAINT: - CHEST PAIN DIAGNOSES: - Other long-term (current) 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 - Allergy status to analgesic agent status - Pleural effusion, not elsewhere classified - Dependence on renal dialysis - Radiographic dye allergy status - Other chest pain - Pericardial effusion (noninflammatory) - Allergy status to narcotic agent status - Acute respiratory failure with hypoxia - Chronic pulmonary edema - Allergy status to oth drug/meds/biol subst status 10/17/2018 03:19 [facility] TYPE: Emergency DIAGNOSES: - Dependence on renal dialysis - Pleural effusion, not elsewhere classified - End stage renal disease - Shortness of breath - Shortness of Breath 10/16/2018 23:10 [place] TYPE: Emergency COMPLAINT: - EXCESS FLUID DIAGNOSES: - Shortness of breath - Thrombocytopenia, unspecified - Allergy status to oth drug/meds/biol subst status - Allergy status to narcotic agent status - Other pulmonary embolism without acute cor pulmonale - Acute kidney failure, unspecified - Patient's other noncompliance with medication regimen - Chronic kidney disease, unspecified - Radiographic dye allergy status - Dependence on renal dialysis - Other long-term (current) 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 - 1 Hypertensive chronic kidney disease w stg 1-4/tariq miranda 08/20/2018 13:08 [place] [place] TYPE: Emergency COMPLAINT: - CHEST PAIN, SOB DIAGNOSES: - Dependence on renal dialysis - Chronic kidney disease, unspecified - Allergy status to oth drug/meds/biol subst status - Chronic pulmonary edema - Other watermelon inspector (current) drug therapy - Allergy status to narcotic agent status - Dyspnea, unspecified - Radiographic dye allergy status 08/13/2018 10:25 [facility] [place] TYPE: Emergency COMPLAINT: - CHEST PRESSURE DIAGNOSES: - Allergy status to oth drug/meds/biol subst status - Pleural effusion, not elsewhere classified - End stage renal disease - Allergy status to narcotic agent status - Hyperkalemia - Other specified abnormalities of plasma proteins - Other long-term (current) 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 - Radiographic dye allergy status - Dependence on renal dialysis - Chest pain, unspecified 08[facility]13/2018 [facility] [place] DIAGNOSES: - Hypoxemia - [...] kidney disease, unspecified - Allergy status to oth drug/meds/biol subst status 06/19/2018 23:43 [place] [place] TYPE: Emergency COMPLAINT: - CHEST PAIN DIAGNOSES: - Other chest pain - watermelon inspector (current) use of opiate analgesic - Allergy status to oth drug/meds/biol subst status - End stage renal disease - Dependence on renal dialysis - Personal history of nicotine dependence - Fluid overload, unspecified - Radiographic dye allergy status - Heart failure, unspecified - Other watermelon inspector (current) drug therapy 06/12/2018 13:45 [place] [place] TYPE: Emergency COMPLAINT: - SOB DIAGNOSES: - Shortness of breath - Radiographic dye allergy status - Unspecified asthma, uncomplicated - Hyperkalemia - Allergy status to narcotic agent status - Dependence on renal dialysis - Fluid overload, unspecified - Other long-term (current) 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 - Allergy status to oth drug/meds/biol subst status - Chronic kidney disease, unspecified 06/11/2018 07:55 [facility] [place] TYPE: Emergency COMPLAINT: - DIFFICULTY BREATHING,VOMITING DIAGNOSES: - Chronic pulmonary edema - Shortness of breath - Other watermelon inspector (current) drug therapy - Radiographic dye allergy status - senior living (current) use of opiate analgesic - Personal history of nicotine dependence 06/04/2018 06:07 [facility] [place] TYPE: Emergency COMPLAINT: - SOB DIAGNOSES: - Shortness of breath - Allergy status to oth drug/meds/biol subst status - Radiographic dye allergy status - Other watermelon inspector (current) drug therapy - Dyspnea, unspecified - Allergy status to narcotic agent status - Respiratory syncytial virus causing diseases classd elswhr 05/26/2018 11:57 [facility] [place] TYPE: Emergency DIAGNOSES: - Acute respiratory distress - Chest pain, unspecified - Other ascites - Pleural effusion, not elsewhere classified 05/26/2018 07:23 [facility] [place] TYPE: Emergency COMPLAINT: - FLU SYMPTOMS DIAGNOSES: - Allergy status to oth drug/meds/biol subst status - Other watermelon inspector (current) drug therapy - Radiographic dye allergy status - Dependence on renal dialysis - Pleural effusion, not elsewhere classified - Allergy status to narcotic agent status - Shortness of breath 05/25/2018 11:53 [facility] [place] TYPE: Emergency COMPLAINT: - SOB/COUGH DIAGNOSES: - Dependence on renal dialysis - Shortness of breath - Allergy status to narcotic agent status - Pneumonia, unspecified organism - Other long-term (current) 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 - Radiographic dye allergy status - Pleural effusion, not elsewhere classified - Allergy status to oth drug/meds/biol subst status Plus 2 More Visits INPATIENT VISIT TRACKING (12 MO.) 12/10/2018 22:01 [facility] TYPE: Inpatient DIAGNOSES: - Other ascites - Acute respiratory failure with hypoxia - Lobar pneumonia, unspecified organism - Other disorders of phosphorus metabolism - Nonrheumatic tricuspid (valve) insufficiency - Personal history of other diseases of the digestive system - Hypoxemia - Prsnl history of dis of the bld/bld-form org/immun mechnsm - Patient's noncompliance w oth medical treatment and regimen - Awaiting organ transplant status - Hyperkalemia - [facility] personal risk factors, not elsewhere classified - Chronic right heart failure - Sepsis, unspecified organism Sepsis, u - Dilated cardiomyopathy - Fluid overload, unspecified - Chronic combined systolic and diastolic hrt fail - End stage renal disease - Acute and chronic respiratory failure with hypercapnia - Left ventricular failure, unspecified - Pericardial effusion (noninflammatory) - Dependence on renal dialysis - Anemia in chronic kidney disease - Nonrheumatic mitral (valve) insufficiency - Acute and chronic respiratory failure with hypoxia - Chronic pulmonary edema 10/17/2018 03:19 [facility] TYPE: General Medicine DIAGNOSES: - Shortness of breath - Pleural effusion, not elsewhere classified - End stage renal disease - Dependence on renal dialysis 08/20/2018 17:21 [facility] TYPE: General Medicine DIAGNOSES: - Pleural Effusion - Chronic pulmonary edema 07/18/2018 22:44 [facility] TYPE: General Medicine DIAGNOSES: - Hypoxemia - End stage renal disease - Pulmonary hypertension, unspecified - Chronic right heart failure - Personal history of other diseases of urinary system - Fever, unspecified - Pleural effusion, not elsewhere classified - Anemia in chronic kidney disease - Dependence on renal dialysis 05/26/2018 11:57 [facility] TYPE: General Medicine DIAGNOSES: - Acute respiratory distress - Dependence on renal dialysis - Hyperkalemia - Chest pain, unspecified - Pleural effusion, not elsewhere classified - Other ascites - Acute systolic (congestive) heart failure - Other disorders of phosphorus metabolism - End stage renal disease - Anemia in chronic kidney disease - Oth disorders of plasma-protein metabolism, NEC - Oth personal risk factors, not elsewhere classified [email or web address]
--- NOTE | 2019-01-02 17:48 | EKG ---
[facility] [address] [place] [address] Signed Normal sinus rhythm Right axis deviation Abnormal ECG When compared with ECG of 09-DEC-2018 23:48, QRS axis shifted right Confirmed by JACKIE DOLAN MD ([id number]) on 01/02/2019 5:48:14 PM Electronically Signed By: JACKIE DOLAN MD 01/02/19 1748 PATIENT NAME: CONOR LOUISE MAGALY Electrocardiogram DATE OF : [birth year] PHYSICIAN: JACKIE DOLAN MD REPORT #: [id number] REPORT IS CONFIDENTIAL AND NOT TO BE RELEASED WITHOUT AUTHORIZATION
== END 2019-01-02 13:10 | disposition home or self-care (01) ==
LOC: ED 11:17
PROC: 0W993ZZ Drainage of Right Pleural Cavity, Percutaneous Approach (ICD-10-PCS; principal; 2019-01-02)
DX: J90 Pleural effusion, not elsewhere classified (principal); R07.9 Chest pain, unspecified
CPT/HCPCS: 32554; 71045; 93005; 93010; 94644; 99285-25

== ENCOUNTER 2019-01-06 19:29 | Emergency (ER) | payer MEDICARE, OTHER ==
[~2019-01-06] VITALS: Ht 170.2 cm; Wt 79.4 kg
--- OUTSIDE RECORDS SUMMARY | ~2019-01-06 | XMS | Encounter Summary ---
Demographics + + + | Address | [address] | | | [place] [address] | + + + | Home Phone | | + + + | Preferred Language | Unknown | + + + | Marital Status | Single | + + + | Confucianism Affiliation | Unknown | + + + [...] | | | | | [place] [id number] | | + + + + + | Thania Mallory | ECON | [address] | | | | | [place] [phone] | | + + + + + | Deidra Weldon | ECON | [address] | | | | | [place] | | | | | [address] | | + + + + + Care Team Providers + +------+ + | Care Investigator Name | Role | Phone | [...] + + | 11/23/ | Documentati | Transplant | Kelsi Martinez, | Transplant Form | | 2012 | on | Coordinators [phone] | RN [phone] | Update | | | | [facility] | [facility] | | | | | [address] [place], [place] | [place], [place] | | | | | [address] | [address] | | | | | [phone] | | | +--------+ + + + [...] Denise | | | | | | [place] | | | | | | [address] | | | | | | [phone] | | | | | | | | +--------+ + + + + documented as of this encounter Visit Diagnoses Not on filedocumented in this encounter"
--- OUTSIDE RECORDS SUMMARY | ~2019-01-06 | XMS | Encounter Summary ---
Demographics + + + | Address | [address] | | | [place] [address] | + + + | Home Phone | | + + + | Preferred Language | Unknown | + + + | Marital Status | Single | + + + | Sikhism Affiliation | Unknown | + + + | Race | Unknown | + + + | Ethnic Group | Unknown | + + + Author + + + | Author | [facility] (Historical as of | | | 10-20-18) | + + + | Organization | [facility] (Historical as of | | | 10-20-18) | + + + | Address | [...] Team Providers + +------+ + | Care Boring Machine Operator Horizontal Name | Role | Phone | + +------+ + | Tien Nicholson MD | PCP | | + +------+ + Reason for Visit + + + | Reason | Comments | + + + | Shortness of Breath | Since Titi | + + + Auth/Cert +--------+--------+ + + + + | Status | Reason | Specialty | Diagnoses / | Referred By | Referred To | | | | | Procedures | Contact | Contact | +--------+--------+ + + + + | | | Internal | Diagnoses | | [facility] | | | | Medicine | SOB | | [address] | | | | | (shortness | | [address] | | | | | of breath) | | [address] | | | | | Pleural | | [place], [place] | | | | | effusion on | | [id number] Phone: | | | | | right ESRD | | [phone] | | | | | needing | | Fax: | | | | | dialysis | | [phone] | | | | | (HCC) | | | +--------+--------+ + + + + Encounter Details +--------+ + + + + | Date | Type | Department | Care Team | Description | +--------+ + + + + | 10/17/ | Hospital | [facility] | Vivek Teran, | SOB (shortness of | | 2019 - | Encounter | [facility] | MD [address] | breath) (Primary | | | | [address] | [place] [address] | Dx); Pleural | | 10/20/ | | [address] | [phone] | effusion on right; | | 2019 | | [place] [address] | | ESRD needing | | | | [phone] | Nikita, | dialysis ([facility]); End | | | | | MD [address] | stage renal disease | | | | | [address] | (HCC) | | | | | [place] [address] | | | | | | [phone] | | | | | | | | | | | | Gerber Pearson MD | | | | | | [address] | | | | | | [place] [address] | | | | | | [phone] | | | | | | | | +--------+ + + + + Social History + + + +--------+ + | Tobacco Use | Types | Packs/Day | Years | Date | | | | | Used | | + + + +--------+ + | Former Smoker | Cigarettes | 0.5 | 3 | Quit: 2018 | + + + +--------+ + + +---+---+---+ | Smokeless Tobacco: [...] on file | | + + + as of this encounter Last Filed Vital Signs + + + + | Vital Sign | Reading | Time Taken | + + + + | Blood Pressure | 115/68 | 10/19/2018 11:11 PM PDT | + + + + | Pulse | 77 | 10/19/2018 11:11 PM PDT | + + + + | Temperature | 36.7 C (98.1 F) | 10/19/2018 11:11 PM PDT | + + + + | Respiratory Rate | 18 | 10/19/2018 11:11 PM PDT | + + + + | Oxygen Saturation | 97% | 10/19/2018 11:11 PM PDT | + + + + | Inhaled Oxygen | - | - | | Concentration | | | + + + + | Weight | 65.4 kg (144 lb 2.9 | 10/19/2018 10:48 AM PDT | | | oz) | | + + + + | Height | 170.2 cm (5' 7") | 10/19/2018 3:43 AM PDT | + + + + | Body Mass Index | 22.58 | 10/19/2018 10:48 AM PDT | + + + + in this encounter Medications at Time of Discharge + + +--------+---------+ + + | Medication | Sig. | Disp. | Refills | Start | End Date | | | | | | Date | | + + +--------+---------+ + + | albuterol | Inhale 2 puffs into | | 0 | 07/01/19 | | | (PROVENTIL | the lungs every 6 | | | 19 | | | HFA;VENTOLIN HFA) | (six) hours as | | | | | | 108 (90 Base) | needed. for wheezing | | | | | | MCG/ACT inhaler | | | | | | + + +--------+---------+ + + | clopidogrel | Take 75 mg by mouth | | | | | | (PLAVIX) 75 MG | daily. Indications: | | | | | | tabletIndications: | Treatment to Prevent | | | | | | Subacute Stent | a Blood Clot in a | | | | | | Thrombosis | Vascular Stent | | | | | | Prevention | | | | | | + + +--------+---------+ + + | | Take 3 mLs by | | | | | | ipratropium-albutero | nebulization. | | | | | | l (DUO-NEB) 0.5-2.5 | | | | | | | mg/3mL | | | | | | + + +--------+---------+ + + | metoprolol | Take 1 tablet by | 30 | 2 | 07/25/19 | | | (TOPROL-XL) 50 MG 24 | mouth daily. | tablet | | 19 | 0 | | hr tablet | | | | | | + + +--------+---------+ + + | ondansetron | Take 4 mg by mouth 3 | | | | | | (ZOFRAN) 4 MG | (three) times daily | | | | | | tabletIndications: | as needed for | | | | | | Nausea and Vomiting | Nausea. | | | | | + + +--------+---------+ + + | pantoprazole | Take 40 mg by mouth | | | | | | (PROTONIX) 40 MG | every morning before | | | | | | tablet | breakfast. | | | | | + + +--------+---------+ + + | promethazine | Take 1 tablet by | 30 | 0 | 07/25/19 | | | (PHENERGAN) 25 MG | mouth every 6 (six) | tablet | | 19 | | | tablet | hours as needed for | | | | | | | Nausea or Vomiting | | | | | | | (non-resposive to | | | | | | | zofran). | | | | | + + +--------+---------+ + + | sevelamer | Take 2 tablets by | 180 | 2 | 06/02/19 | | | (RENVELA) 800 MG | mouth 3 (three) | tablet | | 19 | 0 | | tablet | times daily with | | | | | | | meals. | | | | | + + +--------+---------+ + + | valsartan (DIOVAN) | Take 1 tablet by | 30 | 11 | 06/15/19 | | | 40 MG tablet | mouth daily. | tablet | | 19 | 0 | + + +--------+---------+ + + as of this encounter Progress Notes Antonio Pabon MD - 10/19/2018 12:14 PM PDTFormatting of this note may be different from the original. [facility] Service: NEPHROLOGY Progress Note Dara Weldon 23 y.o. 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 Nephrology consulted for evaluation and management ofAcute pulm edema/ hypervolemia/ esrd ONSET Acute onChronic severity severe Associated with fluid electrolyte acid base imbalances In the setting of missed hd/ ADHF combined Assess need for urgent hd/uf Seen and examined Feels weak, Improved sob with hd with uf Tolerated hd/ uf well this am, got uf 2.5 liters No cp, nausea, vomiting, diarrhea, fever, headache Past Medical History Diagnosis Date Asthma Clotted dialysis access (HCC) 2014 Congestive heart failure (HCC) ESRD (end stage renal disease) (HCC) HSP (Henoch Schonlein purpura) (HCC) HSP (Henoch-Schonlein purpura) nephritis (HCC) Hypertension Past Surgical History Procedure Laterality Date ABDOMINAL SURGERY AV FISTULA PLACEMENT Left 04/08/2014 Procedure: AV FISTULA; Surgeon: Rik Simon MD; Location: [facility] OR; Service: Vascula r; Laterality: Left; cephalic AV FISTULA REPAIR Left 03/07/2014 Procedure: AV FISTULA - GRAFT REPAIR/REVISION; Surgeon: Rik Simon MD; Location: [facility] IN OR; Service: Vascular; Laterality: Left; DECLOT GRAFT Left 03/07/2014 Procedure: GRAFT - DECLOT; Surgeon: Rik Simon MD; Location: [facility] MAIN OR; Service: Vas cular; Laterality: Left; DIALYSIS FISTULA CREATION N/A 04/08/2014 Procedure: DIALYSIS CATHETER - INSERTION; Surgeon: Rik Simon MD; Location: [facility] MAIN OR ; Service: Vascular; Laterality: N/A; tunneled catheter LAPAROSCOPIC PERITONEAL DIALYSIS CATHETER INSERTION x2 LAPAROSCOPIC PERITONEAL DIALYSIS CATHETER INSERTION Right 07/2013 current dialysis access MWF dialysis RENAL BIOPSY Left 2003 SUPERFICIALIZATION OF AV FISTULA Left 06/24/2014 Procedure: AV FISTULA - SUPERFICIALIZATION; Surgeon: Rik Simon MD; Location: [facility] MAIN OR; Service: Vascular; Laterality: Left; No prescriptions prior to admission. Allergies Allergen Reactions Fentanyl Itching Iodinated Diagnostic Agents Itching Pt c/o face itching during fistulagram Morphine Rash Reglan [Metoclopramide] Itching Ritalin [Methylphenidate Hcl] Other (See Comments) Patient says skin was crawling Tape [Adhesive Tape] Rash Use silk tape only Family History Problem Relation Age of Onset Heart disease Mother Seizures Mother Hypertension Father Alcohol abuse Father Social History Social History Marital status: Single Spouse name: N/A Number of children: 0 Years of education: N/A Occupational History Not on file. Social History Main Topics Smoking status: Former Smoker Packs/day: 0.50 Years: 3.00 Types: Cigarettes Quit date: 2017 Smokeless tobacco: Never Used Alcohol use No Drug use: Yes Types: Marijuana Comment: 10.5 gm daily, trying to switch to edibles Sexual activity: Not on file Other Topics Concern Not on file Social History Narrative She lives in [facility]. She does not work. She has 1 full sibling in good health. She has a total of 14 siblings (3 with same mother, rest with same father). 1 half sibling on father's side had a brain tumor. Allergy: Allergies Allergen Reactions Fentanyl Itching Iodinated Diagnostic Agents Itching Pt c/o face itching during fistulagram Morphine Rash Reglan [Metoclopramide] Itching Ritalin [Methylphenidate Hcl] Other (See Comments) Patient says skin was crawling Tape [Adhesive Tape] Rash Use silk tape only OBJECTIVE Vital Signs: BP 115/68 (BP Location: Right upper arm) | Pulse 77 | Temp 98.1 F (36.7 C) (Oral) | Resp 18 | Ht 1.702 m (5' 7") | Wt 65.4 kg (144 lb 2.9 oz) | LMP 06/21/2018 | SpO2 97% | BMI 22.58 kg/m I&O Detailed Table: I/O last 3 completed shifts: In: 1580 [P.O.:780; Other:800] Out: 3300 [Other:3300] Weight change: -9 kg (-19 lb 13.5 oz) Examination: APPEARANCE: The patient is a pleasant lying in bed in no distress, awake and alert VITALS: Reviewed as listed. HEAD: NC/AT. Non-icteric sclera LUNGS: Decrease bs at right base, no respiratory distress. HEART: S1, S2, no pericardial rub noted. ABDOMEN: soft, no tenderness. EXTREMITIES:+ve tracepedal edemanoted. NEUROLOGIC: No gross focal motor deficitnoted, speech fluent PSYCH: The patient is alert and oriented x3, mood and affect looks ok MARISEL AVF +ve thrill/ bruit LABS: No results found for this or any previous visit (from the past 24 hour(s)). IMAGING: X-ray Chest 1 View Result Date: 10/17/2018 CHEST ONE VIEW CLINICAL INFORMATION: Shortness of breath, primarily right-sided, for severa l days. COMPARISON: XR CHEST 2 VIEW FRONTAL AND LATERAL (08/22/2018); XR CHEST 2 VIEW FRONTAL AND LATERAL (08/21/2018); FINDINGS: Cardiomegaly with findings of pulmonary edema with large right pleural effusion. No pneumothorax. Bones unremarkable. Cardiomegaly with pulmonary edema and large right pleural effusion. Signed by: Suha Echols Julie Sign Date/Time: 10/17/2018 4:25 AM Us Thoracentesis (includes Imaging) Result Date: 10/18/2018 ULTRASOUND GUIDED RIGHT THORACENTESIS CLINICAL INFORMATION: Recurrent right pleural effusio n. PROCEDURE: Prior to the procedure, risks and benefits were explained to the patient and i nformed written and verbal consent obtained. Patient was placed in upright position and loca tion adjacent to pleural fluid marked on the skin using ultrasound guidance and the area pre pped and draped in the usual sterile fashion. Using lidocaine for local anesthesia, the pleu ral space is punctured with an 5 Hungarian [employer] centesis catheter. Fluid is aspirated without complication. The patient tolerated the procedure well. No immediate complications. Estimate d Blood Loss: Minimal. Uncomplicated thoracentesis. 1.5 L of turbid yellow fluid which was discarded. Procedure pe rformed by Cheryl Connell PA-C. I, Dr. Colten Hutchins, supervised the procedure and was prese nt for the entire procedure. Dictated by: Javon Connell Nicole Signed by: Eliza Hutchins How ard Sign Date/Time: 10/18/2018 5:29 PM The radiologist has reviewed the images and edited/ap proved the report. For interventional procedures, the signing radiologist was present for th e esquivel portions of the exam. X-ray Chest Inspiration & Expiration Result Date: 10/18/2018 CHEST INSPIRATION OR EXPIRATION ONLY CLINICAL INFORMATION: Post thoracentesis. COMPARISON: US THORACENTESIS WITH IMAGING GUIDANCE (10/18/2018); XR CHEST 1 VIEW (10/17/2018); CHEST TWO V IEWS [id number] (10/17/2018); FINDINGS: Compared to the prior examination there appears to be inte rval decrease in the volume of the large right pleural effusion. No pneumothorax is evident . There is persistent large right pleural fluid collection. Cardiomegaly with pulmonary vas cular engorgement and cephalization of flow consistent with a CHF pattern again noted. 1. Interval decrease in volume of the large right pleural effusion consistent with the hist ory of thoracentesis 2. No pneumothorax to suggest complication of the procedure 3. Persiste nt cardiomegaly with CHF pattern Signed by: Eliza Coy Dwane Sign Date/Time: 10/18/2018 6:05 PM Patient's old records, imaging and labs were reviewed in detail and summarized. PROBLEM LIST Principal Problem: Non-cardiogenic pulmonary edema Active Problems: HSP (Henoch Schonlein purpura) Dyspnea Pleural effusion on right Non-compliance Hyperkalemia Moderate to severe pulmonary hypertension (HCC) Chronic 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) End stage renal disease (HCC) Medically noncompliant Hypervolemia Acidosis ASSESSMENT & PLAN FLUID OVERLOAD/ ANASARCA/ EDEMA/ pulmonary edema Improving In the setting of missed hd/ ADHF combined Tolerated hd/ uf well this am, got uf 2.5 liters, reviewed LOW NA DIET 2GM/ 24 HOURS FLUID RESTRICTION 1.2 LITERS / 24 HOURS DAILY WEIGHTS STRICT I/O 06/2018 echocardiogram-overall left ventricular systolic function is moderate/severely impa ired, EF 30-35%. Restrictive LV diastolic filling pattern, consistent with elevated LA pre ssure and severe dysfunction, grade 3. Moderate MR, severe TR.severe pulmonary hypertens ion Chest [id number] with pulmonary edema and large right pleural effusion Troponin I-0.151. BNP 1151 ESRD ON HD Tolerated hd/ uf well this am, got uf 2.5 liters Assess daily for need for hd & uf Orders in the chart Fluid restriction 1.2 litres/24 hours Strict I & O Daily RFP Renal diet Daily weights will help with subsequent hd with uf Dose all meds per protocol for ESRD on hd ANEMIA in ESRD Hold Epogen as hgb above 11.0 EPOGEN TO KEEP HGB 10-11 Lab Results Component Value Date HGB 11.7 10/18/2018 HGB 10.9 (L) 10/17/2018 HGB 11.7 08/21/2018 HYPERTENSION Controlled WATCH BP CLOSELY DURING HOSPITALIZATION LOW NA DIET Will adjust BP meds according to BP readings BP Readings from Last 3 Encounters: 10/19/18 115/68 10/02/18 128/88 08/23/18 121/66 HYPERPHOSPHATEMIA LOW P DIET PO4 BINDERS Renvela with meals HYPOALBUMINEMIA INCREASE PROTEIN INTAKE Lab Results Component Value Date ALB 3.3 (L) 10/18/2018 ALB 4.0 10/17/2018 ALB 4.0 08/20/2018 CASE DISCUSSED IN DETAIL WITH PATIENT/ care team, ANSWERS ALL QUESTIONS IN DETAIL, VERBALIZ ES UNDERSTANDING ANTONIO PABON MD 10/19/18 TIEN NICHOLSON Seen earlier and charting completed later Dictation software, [employer], used which may contain error for similar sounding words even af ter review. Personal communication requested for any clarification. Gerber Pearson MD - 10/19/2018 7:48 AM PDTFormatting of this note may be different from the original. [facility] Service: Hospitalist Progress Note Hospital Day: LOS: 2 days Post-Op Day: * No surgery found * SUBJECTIVE Patient Summary: Admission H&P Dr. Hogue:" The patient is 23 y.o. female with significant past medical history of end-stage renal dise ase on hemodialysis Monday, Monday and Monday (nephrology Dr Hinson), history of Henoch Sc honlein purpura, recurrent bilateral pleural effusions requiring thoracentesis, combined sys tolic and diastolic heart failure with ejection fraction of 20-25% who presents with dyspnea Patient was recently discharged from [facility] on 08/23/2018. For full note, please see discha rge summary from hospitalist. In summary, the patient was admitted for noncardiogenic pulmo nary edema after thoracentesis. At that point, prior to admission, she was seen at the [facility] department at [facility] in [place] on 08/21 where she underwent right th oracentesis with removal of 2.5 L of fluid. She was sent home after the procedure and subse quently developed dyspnea with x-ray concerning for pulmonary edema. During hospitalization nephrology was consulted, she underwent hemodialysis on 08/21 and 619. Patient improved cli nically and radiologically and she was discharged in good condition on 08/23. Patient, to the ED due to dyspnea for the last 3-4 days. She has not been compliant with h er dialysis, last treatment was 2 weeks ago. She did when this Monday, for which she receiv ed only half therapy due to patient leaving the hemodialysis due to anxiety problems. Patie nt refers that lately she is having a lot of stress in her life, recently her best friend pa ssed away and her nephew had to go for surgery, which has exacerbated her underlying anxiety disorder impeding her to go to treatment. Patient denies any recent fever, chills or nitra barry. Denies any recent cough, sputum production. No lower extremity edema but positive asc ites and dyspnea at moderate activity which has been getting possibly worse since Monday, 4 days ago. In the emergency department, the patient has remained hemodynamically stable. EKG shows si nus tachycardia without any acute ST changes but nonspecific T wave changes. First set of c ardiac enzymes shows a troponin of 0.151. BNP level of 1151. Chest x-ray shows cardiomegal y, pulmonary edema, large right pleural effusion. Hospitalist service was consulted for fur ther management" Events Overnight: 23-year-old female withy a history of end-stage [...] appetite Has been ambulating in the room Scheduled Medications clopidogrel 75 mg Oral Daily heparin 5,000 Units Subcutaneous 2 times per day metoprolol 50 mg Oral Nightly pantoprazole 40 mg Oral QAM AC sevelamer 2,400 mg Oral TID WC valsartan 80 mg Oral Daily Continuous Infusions PRN Medications acetaminophen OR acetaminophen, albuterol, HYDROmorphone, ipratropium-albuterol, ondans etron OR ondansetron, polyethylene glycol, promethazine, sodium chloride (bolus) OBJECTIVE Vital Signs: BP 127/62 (BP Location: Right upper arm) | Pulse 86 | Temp 97.2 F (36.2 C) (Oral) | Resp 18 | Ht 1.702 m (5' 7") | Wt 73.8 kg (162 lb 11.2 oz) | LMP 06/21/2018 | SpO2 91% | BMI 25.48 kg/m Temp: [97.2 F (36.2 C)-98.5 F (36.9 C)] 97.2 F (36.2 C) (10/19 0720) BP: (113-148)/(51-88) 127/62 (10/20 719) Heart Rate: [73-96] 86 (10/20 719) Resp: [18-20] 18 (10/20 719) SpO2: [91 %-100 %] 91 % (10/20 719) Height: [170.2 cm (5' 7")] 170.2 cm (5' 7") (10/19 342) Weight: [73.1 kg (161 lb 2.5 oz)-75.5 kg (166 lb 7.2 oz)] 73.8 kg (162 lb 11.2 oz) (10/19 342) BMI (Calculated): [25.5] 25.5 (10/19 342) Physical Exam Constitutional: She appears well-developed. Awake alert frail-appearing on3L More awake interacting more general looks better today HENT: Head: Normocephalic. Neck: JVD present. Cardiovascular: Normal rate and regular rhythm. Pulmonary/Chest: Improved breath sounds right lung Abdomina/Gl: Abdomen soft, nontender Musculoskeletal: Trace pitting edema bilateral lower ankles Petechiae noted to the lower ankles Skin: Skin is warm. No erythema. Psychiatric: She has a normal mood and affect. Nursing note and vitals reviewed. DATA CBC: Lab Results Component Value Date WBC 5.73 10/18/2018 RBC 3.24 (L) 10/18/2018 HGB 11.7 10/18/2018 HCT 35.3 10/18/2018 MCV 109.1 (H) 10/18/2018 MCH 36.2 (H) 10/18/2018 MCHC 33.1 10/18/2018 RDW 56.4 (H) 10/18/2018 PLT 156 10/18/2018 MPV 10.0 10/18/2018 DIFFTYPE AUTOMATED 10/18/2018 BMP: Lab Results Component Value Date NA 138 10/19/2018 K 4.1 10/19/2018 CL 99 10/19/2018 CO2 30 10/19/2018 ANIONGAP 13 10/19/2018 GLUF 84 10/19/2018 BUN 31 (H) 10/19/2018 CREATININE 7.2 (H) 10/19/2018 BCR 4 10/19/2018 CA 9.2 10/19/2018 EGFR 7 (L) 10/19/2018 Last 3 Troponin: Lab Results Component Value Date TROPONINI 0.175 (H) 10/17/2018 TROPONINI 0.119 (H) 10/17/2018 TROPONINI 0.151 (H) 10/17/2018 CPK: Lab Results Component Value Date CKTOTAL 443 (H) 10/17/2018 CKMB: Lab Results Component Value Date CKMB 17.8 (H) 10/17/2018 Troponin I: Lab Results Component Value Date TROPONINI 0.175 (H) 10/17/2018 X-ray Chest 1 View Result Date: 10/17/2018 Cardiomegaly with pulmonary edema and large right pleural effusion. Signed by: Suha Echols Julie Sign Date/Time: 10/17/2018 4:25 AM PROBLEM LIST Principal Problem: Non-cardiogenic pulmonary edema Active Problems: HSP (Henoch Schonlein purpura) Dyspnea Pleural effusion on right Non-compliance Hyperkalemia Moderate to severe pulmonary hypertension (HCC) Chronic 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) End stage renal disease (HCC) Medically noncompliant ASSESSMENT & PLAN #1. End-stage renal disease's on hemodialysis -Presents with volume overload due to noncompliance with hemodialysis and a combined systol ic/diastolic chronic congestive heart -Potassium 5.5, creatinine 14, BUN 90 on admission -History of a Ches[place] Schnlein purpura -Last hemodialysis approximately 2 weeks ago -Currently undergoing daily hemodialysis -Nephrology has been consulted for hematology #2. [...] Repeat ches t x-ray reviewed -Continue daily hemodialysis I #4. DVT prophylax -Subcu heparin Disposition: Code Status: Full Code Gerber Pearson MD 10/19/2018Gerber Pearson MD - 10/18/2018 7:46 AM PDTFormatting of this note may be diffe rent from the original. [facility] Service: Hospitalist Progress Note Hospital Day: LOS: 1 day Post-Op Day: * No surgery found * SUBJECTIVE Patient Summary: Admission H&P Dr. Hogue:" The patient is 23 y.o. female with significant past medical history of end-stage renal dise ase on hemodialysis Monday, Monday and Monday (nephrology Dr Hinson), history of Henoch Sc honlein purpura, recurrent bilateral pleural effusions requiring thoracentesis, combined sys tolic and diastolic heart failure with ejection fraction of 20-25% who presents with dyspnea Patient was recently discharged from [facility] on 08/23/2018. For full note, please see discha rge summary from hospitalist. In summary, the patient was admitted for noncardiogenic pulmo nary edema after thoracentesis. At that point, prior to admission, she was seen at the [facility] department at [facility] in [place] on 08/21 where she underwent right th oracentesis with removal of 2.5 L of fluid. She was sent home after the procedure and subse quently developed dyspnea with x-ray concerning for pulmonary edema. During hospitalization nephrology was consulted, she underwent hemodialysis on 08/21 and 619. Patient improved cli nically and radiologically and she was discharged in good condition on 08/23. Patient, to the ED due to dyspnea for the last 3-4 days. She has not been compliant with h er dialysis, last treatment was 2 weeks ago. She did when this Monday, for which she receiv ed only half therapy due to patient leaving the hemodialysis due to anxiety problems. Patie nt refers that lately she is having a lot of stress in her life, recently her best friend pa ssed away and her nephew had to go for surgery, which has exacerbated her underlying anxiety disorder impeding her to go to treatment. Patient denies any recent fever, chills or nitra barry. Denies any recent cough, sputum production. No lower extremity edema but positive asc ites and dyspnea at moderate activity which has been getting possibly worse since Monday, 4 days ago. In the emergency department, the patient has remained hemodynamically stable. EKG shows si nus tachycardia without any acute ST changes but nonspecific T wave changes. First set of c ardiac enzymes shows a troponin of 0.151. BNP level of 1151. Chest x-ray shows cardiomegal y, pulmonary edema, large right pleural effusion. Hospitalist service was consulted for fur ther management" Events Overnight: 23-year-old female history of end-stage renal disease on hemodialysis history of poor compl iance, history of Henoch-schnlein purpura , combined systolic/diastolic congestive heart fa ilure (echo 06/12/18: EF 30 to 35%, severe diastolic dysfunction grade 3 severe tricuspid va lve regurgitation, severe pulmonary hypertension), recurrent pleural effusion, admitted 08/22 for noncardiogenic pulmonary edema due to reexpansion lung injury after thoracentesis. Patient indicates that she is been noncompliant with her hemodialysis for over 2 weeks in a ddition has been noncompliant with her medications. She presented to the emergency department yesterday with a progressive dyspnea lower extrem ity edema, on evaluation she was noted to have a creatinine of 14.52 BUN 89, potassium 5.5. Chest x-ray showed cardiomegaly pulmonary edema and again right large pleural effusion. Sh e was hemodynamically stable on 2 L. She was admitted, underwent hemodialysis yesterday, clinically patient feeling much improve d stronger, was able to eat yesterday. Currently on 5 L oxygen 92% saturation Patient scheduled for dialysis again today Thoracentesis tentatively to be done today Patient in good spirits, Scheduled Medications clopidogrel 75 mg Oral Daily heparin 5,000 Units Subcutaneous 2 times per day metoprolol 50 mg Oral Nightly pantoprazole 40 mg Oral QAM AC sevelamer 2,400 mg Oral TID WC valsartan 80 mg Oral Daily Continuous Infusions PRN Medications acetaminophen OR acetaminophen, albuterol, HYDROmorphone, ipratropium-albuterol, ondans etron OR ondansetron, polyethylene glycol, promethazine, sodium chloride (bolus) OBJECTIVE Vital Signs: BP 117/72 (BP Location: Right upper arm) | Pulse 82 | Temp 97.9 F (36.6 C) (Axillary) | Resp 20 | Ht 1.702 m (5' 7.01") | Wt 76.1 kg (167 lb 12.3 oz) | LMP 06/21/2018 | SpO 2 97% | BMI 26.27 kg/m Temp: [97.5 F (36.4 C)-98.2 F (36.8 C)] 97.9 F (36.6 C) (10/18 450) BP: (117-144)/(63-93) 117/72 (10/18 450) Heart Rate: [82-99] 82 (10/18 450) Resp: [18-24] 20 (10/18 450) SpO2: [90 %-98 %] 97 % (10/18 450) Physical Exam Constitutional: She appears well-developed. Awake alert frail-appearing on 5 L , breathing less labored Patient generally looks better today, interacting well HENT: Head: Normocephalic. Neck: JVD present. Cardiovascular: Normal rate and regular rhythm. Pulmonary/Chest: Decreased breath sounds right chest wall Abdomina/Gl: Abdomen soft, nontender Musculoskeletal: Trace pitting edema bilateral lower ankles Petechiae noted to the lower ankles Skin: Skin is warm. No erythema. Psychiatric: She has a normal mood and affect. Nursing note and vitals reviewed. DATA CBC: Lab Results Component Value Date WBC 5.73 10/18/2018 RBC 3.24 (L) 10/18/2018 HGB 11.7 10/18/2018 HCT 35.3 10/18/2018 MCV 109.1 (H) 10/18/2018 MCH 36.2 (H) 10/18/2018 MCHC 33.1 10/18/2018 RDW 56.4 (H) 10/18/2018 PLT 156 10/18/2018 MPV 10.0 10/18/2018 DIFFTYPE AUTOMATED 10/18/2018 BMP: Lab Results Component Value Date NA 138 10/18/2018 K 4.5 10/18/2018 CL 99 10/18/2018 CO2 29 10/18/2018 ANIONGAP 15 10/18/2018 GLUF 91 10/18/2018 BUN 49 (H) 10/18/2018 CREATININE 9.3 (H) 10/18/2018 BCR 5 10/18/2018 CA 9.8 10/18/2018 EGFR 5 (L) 10/18/2018 Last 3 Troponin: Lab Results Component Value Date TROPONINI 0.175 (H) 10/17/2018 TROPONINI 0.119 (H) 10/17/2018 TROPONINI 0.151 (H) 10/17/2018 CPK: Lab Results Component Value Date CKTOTAL 443 (H) 10/17/2018 CKMB: Lab Results Component Value Date CKMB 17.8 (H) 10/17/2018 Troponin I: Lab Results Component Value Date TROPONINI 0.175 (H) 10/17/2018 X-ray Chest 1 View Result Date: 10/17/2018 Cardiomegaly with pulmonary edema and large right pleural effusion. Signed by: Suha Echols Julie Sign Date/Time: 10/17/2018 4:25 AM PROBLEM LIST Principal Problem: Non-cardiogenic pulmonary edema Active Problems: HSP (Henoch Schonlein purpura) Dyspnea Pleural effusion on right Non-compliance Hyperkalemia Moderate to severe pulmonary hypertension (HCC) Chronic 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) End stage renal disease (HCC) Medically noncompliant ASSESSMENT & PLAN #1. End-stage renal disease's on hemodialysis -Presents with volume overload due to noncompliance with hemodialysis and a combined systol ic/diastolic chronic congestive heart -Potassium 5.5, creatinine 14, BUN 90 on admission -History of a Cheshire Schnlein purpura -Last hemodialysis approximately 2 weeks ago -Underwent hemodialysis on 10/17/2018, scheduled again for today -Nephrology has been consulted for hematology #2. [...] phone; outpatient follow-up recommended #3. Recurrent pleural effusion -Presents with large right pleural effusion due to noncompliance with hemodialysis and a co mbined systolic/diastolic congestive heart failure -Prior history of a recurrent thoracentesis, admitted 08/22 with reexpansion lung injury -Resume hemodialysis, scheduled for repeat right pleural effusion, currently symptomatic on 5 L oxygen I #4. DVT prophylax -Subcu heparin Disposition: Code Status: Full Code Gerber Pearson MD 10/18/2018Antonio Pabon MD - 10/18/2018 7:45 AM PDTFormatting of this note may be different from the original. [facility] Service: NEPHROLOGY Progress Note Dara Weldon 23 y.o. [id number] female [facility] Day: LOS: 1 day 23-year-old female with past medical history significant [...] for urgent hd/uf Seen and examined Feels weak, +ve sob improving Plan for hd / uf today No cp, nausea, vomiting, diarrhea, fever, headache Past Medical History Diagnosis Date Asthma Clotted dialysis access (HCC) 2014 Congestive heart failure (HCC) ESRD (end stage renal disease) (HCC) HSP (Henoch Schonlein purpura) (HCC) HSP (Henoch-Schonlein purpura) nephritis (HCC) Hypertension Past Surgical History Procedure Laterality Date ABDOMINAL SURGERY AV FISTULA PLACEMENT Left 04/08/2014 Procedure: AV FISTULA; Surgeon: Rik Simon MD; Location: [facility] OR; Service: Vascula r; Laterality: Left; cephalic AV FISTULA REPAIR Left 03/07/2014 Procedure: AV FISTULA - GRAFT REPAIR/REVISION; Surgeon: Rik Simon MD; Location: [facility] IN OR; Service: Vascular; Laterality: Left; DECLOT GRAFT Left 03/07/2014 Procedure: GRAFT - DECLOT; Surgeon: Rik Simon MD; Location: [facility] MAIN OR; Service: Vas cular; Laterality: Left; DIALYSIS FISTULA CREATION N/A 04/08/2014 Procedure: DIALYSIS CATHETER - INSERTION; Surgeon: Rik Simon MD; Location: [facility] MAIN OR ; Service: Vascular; Laterality: N/A; tunneled catheter LAPAROSCOPIC PERITONEAL DIALYSIS CATHETER INSERTION x2 LAPAROSCOPIC PERITONEAL DIALYSIS CATHETER INSERTION Right 07/2013 current dialysis access MWF dialysis RENAL BIOPSY Left 2003 SUPERFICIALIZATION OF AV FISTULA Left 06/24/2014 Procedure: AV FISTULA - SUPERFICIALIZATION; Surgeon: Rik Simon MD; Location: [facility] MAIN OR; Service: Vascular; Laterality: Left; Prescriptions Prior to Admission Medication Sig Dispense Refill Last Dose albuterol (PROVENTIL HFA;VENTOLIN HFA) 108 (90 Base) MCG/ACT inhaler Inhale 2 puffs int o the lungs every 6 (six) hours as needed. for wheezing 0 Taking at Unknown time clopidogrel (PLAVIX) 75 MG tablet Take 75 mg by mouth daily. Indications: Treatment to Prevent a Blood Clot in a Vascular Stent Taking at Unknown time metoprolol (TOPROL-XL) 50 MG 24 hr tablet Take 1 tablet by mouth daily. (Patient taking differently: Take 50 mg by mouth nightly.) 30 tablet 2 Taking at Unknown time ondansetron (ZOFRAN) 4 MG tablet Take 4 mg by mouth 3 (three) times daily as needed for Nausea. Taking at Unknown time pantoprazole (PROTONIX) 40 MG tablet Take 40 mg by mouth every morning before breakfast . Taking at Unknown time promethazine (PHENERGAN) 25 MG tablet Take 1 tablet by mouth every 6 (six) hours as nee ded for Nausea or Vomiting (non-resposive to zofran). 30 tablet 0 Taking at Unknown time sevelamer (RENVELA) 800 MG tablet Take 2 tablets by mouth 3 (three) times daily with me als. (Patient taking differently: Take 2,400 mg by mouth 3 (three) times daily with meals.) 180 tablet 2 Taking at Unknown time valsartan (DIOVAN) 40 MG tablet Take 1 tablet by mouth daily. (Patient taking different ly: Take 80 mg by mouth daily.) 30 tablet 11 Taking at Unknown time ipratropium-albuterol (DUO-NEB) 0.5-2.5 mg/3mL Take 3 mLs by nebulization. Taking Allergies Allergen Reactions Fentanyl Itching Iodinated Diagnostic Agents Itching Pt c/o face itching during fistulagram Morphine Rash Reglan [Metoclopramide] Itching Ritalin [Methylphenidate Hcl] Other (See Comments) Patient says skin was crawling Tape [Adhesive Tape] Rash Use silk tape only Family History Problem Relation Age of Onset Heart disease Mother Seizures Mother Hypertension Father Alcohol abuse Father Social History Social History Marital status: Single Spouse name: N/A Number of children: 0 Years of education: N/A Occupational History Not on file. Social History Main Topics Smoking status: Former Smoker Packs/day: 0.50 Years: 3.00 Types: Cigarettes Quit date: 2017 Smokeless tobacco: Never Used Alcohol use No Drug use: Yes Types: Marijuana Comment: 10.5 gm daily, trying to switch to edibles Sexual activity: Not on file Other Topics Concern Not on file Social History Narrative She lives in [facility]. She does not work. She has 1 full sibling in good health. She has a total of 14 siblings (3 with same mother, rest with same father). 1 half sibling on father's side had a brain tumor. Scheduled Medications clopidogrel 75 mg Oral Daily heparin 5,000 Units Subcutaneous 2 times per day metoprolol 50 mg Oral Nightly pantoprazole 40 mg Oral QAM AC sevelamer 2,400 mg Oral TID WC valsartan 80 mg Oral Daily Continuous Infusions PRN Medications acetaminophen OR acetaminophen, albuterol, HYDROmorphone, ipratropium-albuterol, ondans etron OR ondansetron, polyethylene glycol, promethazine, sodium chloride (bolus) Allergy: Allergies Allergen Reactions Fentanyl Itching Iodinated Diagnostic Agents Itching Pt c/o face itching during fistulagram Morphine Rash Reglan [Metoclopramide] Itching Ritalin [Methylphenidate Hcl] Other (See Comments) Patient says skin was crawling Tape [Adhesive Tape] Rash Use silk tape only OBJECTIVE Vital Signs: BP 126/85 (BP Location: Right upper arm) | Pulse 85 | Temp 97.9 F (36.6 C) (Oral) | Resp 20 | Ht 1.702 m (5' 7.01") | Wt 76.1 kg (167 lb 12.3 oz) | LMP 06/21/2018 | SpO2 98 % | BMI 26.27 kg/m I&O Detailed Table: I/O last 3 completed shifts: In: 1200 [Other:1200] Out: 4200 [Other:4200] Weight change: Examination: APPEARANCE: The patient is a pleasant lying in bed comfortably VITALS: Reviewed as listed. HEAD: NC/AT. LUNGS: Decrease bs at right base, no respiratory distress. HEART: S1, S2, no pericardial rub noted. ABDOMEN: distended, no tenderness. EXTREMITIES:+vepedal edemanoted. NEUROLOGIC: No gross focal motor deficitnoted. PSYCH: The patient is alert and oriented x3, mood and affect looks ok MARISEL AVF +ve thrill/ bruit LABS: Recent Results (from the past 24 hour(s)) CPK Collection Time: 10/17/18 6:05 PM Result Value Ref Range CPK 443 (H) 30 - 240 U/L Troponin I Collection Time: 10/17/18 6:05 PM Result Value Ref Range TROPONIN I 0.175 (H) 0.00 - 0.04 ng/mL CBC W/Auto Diff (Reflex to Manual) Collection Time: 10/18/18 5:44 AM Result Value Ref Range WBC 5.73 3.80 - 11.00 K/uL RBC 3.24 (L) 3.70 - 5.10 M/uL HGB 11.7 11.3 - 15.5 g/dL HCT 35.3 34.0 - 46.0 % MCV 109.1 (H) 80.0 - 100.0 fl MCH 36.2 (H) 27.0 - 34.0 pg MCHC 33.1 32.0 - 35.5 g/dL RDW SD 56.4 (H) 37 - 53 fl PLT 156 150 - 400 K/uL MPV 10.0 fl DIFF TYPE AUTOMATED NEUTROPHILS 65.19 % LYMPHOCYTES 16.92 % MONOCYTES 6.14 % EOSINOPHILS 10.47 % BASOPHILS 1.28 % NEUTROPHILS ABS 3.73 1.90 - 7.40 K/uL LYMPHOCYTES ABS 0.97 (L) 1.00 - 3.90 K/uL MONOCYTES ABS 0.35 0.00 - 0.80 K/uL EOSINOPHILS ABS 0.60 (H) 0.00 - 0.50 K/uL BASOPHILS ABS 0.07 0.00 - 0.10 K/uL MORPHOLOGY 2+ Magnesium Collection Time: 10/18/18 5:44 AM Result Value Ref Range MAGNESIUM 2.4 1.7 - 2.4 mg/dL Comprehensive Metabolic Panel Collection Time: 10/18/18 5:44 AM Result Value Ref Range SODIUM 138 135 - 145 mmol/L POTASSIUM 4.5 3.5 - 4.9 mmol/L CHLORIDE 99 99 - 109 mmol/L CO2 29 23 - 32 mmol/L ANION GAP AGAP 15 5 - 20 mmol/L GLUCOSE 91 65 - 99 mg/dL BUN 49 (H) 8 - 25 mg/dL CREATININE 9.3 (H) 0.50 - 1.00 mg/dL BUN/CREAT 5 CALCIUM 9.8 8.5 - 10.5 mg/dL TOTAL PROTEIN 7.0 6.3 - 8.2 g/dL Albumin 3.3 (L) 3.6 - 5.0 g/dL GLOBULIN 3.7 1.3 - 4.9 g/dL A/G 0.9 (L) 1.0 - 2.4 TBIL 0.8 0.1 - 1.5 mg/dL ALK PHOS 89 35 - 115 U/L AST 28 10 - 45 U/L ALT 36 10 - 65 U/L EGFR 5 (L) >60 mL/min/1.73m2 Electrocardiogram, 12-lead Collection Time: 10/18/18 6:38 AM Result Value Ref Range Ventricular Rate 82 BPM Atrial Rate 82 BPM P-R Interval 178 ms QRS Duration 88 ms Q-T Interval 402 ms QTC Calculation (Bezet) 469 ms Calculated P [place] 46 degrees Calculated R [place] 127 degrees Calculated T [place] 94 degrees Diagnosis Normal sinus rhythm Right axis deviation Nonspecific T wave abnormality Prolonged QT Abnormal ECG When compared with ECG of 17-OCT-2018 03:50, QRS axis Shifted right Inverted T waves have replaced nonspecific T wave abnormality in Lateral leads IMAGING: X-ray Chest 1 View Result Date: 10/17/2018 CHEST ONE VIEW CLINICAL INFORMATION: Shortness of breath, primarily right-sided, for severa l days. COMPARISON: XR CHEST 2 VIEW FRONTAL AND LATERAL (08/22/2018); XR CHEST 2 VIEW FRONTAL AND LATERAL (08/21/2018); FINDINGS: Cardiomegaly with findings of pulmonary edema with large right pleural effusion. No pneumothorax. Bones unremarkable. Cardiomegaly with pulmonary edema and large right pleural effusion. Signed by: Suha Echols Julie Sign Date/Time: 10/17/2018 4:25 AM Patient's old records, imaging and labs were reviewed in detail and summarized. PROBLEM LIST Principal Problem: Non-cardiogenic pulmonary edema Active Problems: HSP (Henoch Schonlein purpura) Dyspnea Pleural effusion on right Non-compliance Hyperkalemia Moderate to severe pulmonary hypertension (HCC) Chronic 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) End stage renal disease (HCC) Medically noncompliant ASSESSMENT & PLAN FLUID OVERLOAD/ ANASARCA/ EDEMA/ pulmonary edema In the setting of missed hd/ ADHF combined S/p urgent hd with uf yesterday, plan for uf with hd today LOW NA DIET 2GM/ 24 HOURS FLUID RESTRICTION 1.2 LITERS / 24 HOURS DAILY WEIGHTS STRICT I/O 06/2018 echocardiogram-overall left ventricular systolic function is moderate/severely impa ired, EF 30-35%. Restrictive LV diastolic filling pattern, consistent with elevated LA pre ssure and severe dysfunction, grade 3. Moderate MR, severe TR.severe pulmonary hypertens ion Chest [id number] with pulmonary edema and large right pleural effusion Troponin I-0.151. BNP 1151 HYPERKALEMIA improved s/p hd In the setting of missed hd Low k diet Watch k level closely Acidosis Improved s/p hd In the setting of missed hd ESRD ON HD plan for hd/uf today Assess daily for need for hd & uf Orders in the chart Fluid restriction 1.2 litres/24 hours Strict I & O Daily RFP Renal diet Daily weights will help with subsequent hd with uf Dose all meds per protocol for ESRD on hd ANEMIA in ESRD Hold epogen as hgb above 11.0 EPOGEN TO KEEP HGB 10-11 Lab Results Component Value Date HGB 11.7 10/18/2018 HGB 10.9 (L) 10/17/2018 HGB 11.7 08/21/2018 HYPERTENSION Controlled WATCH BP CLOSELY DURING HOSPITALIZATION LOW NA DIET Will adjust BP meds according to BP readings BP Readings from Last 3 Encounters: 10/18/18 126/85 10/02/18 128/88 08/23/18 121/66 HYPERPHOSPHATEMIA Controlled LOW P DIET PO4 BINDERS Renvela with meals HYPOALBUMINEMIA INCREASE PROTEIN INTAKE Lab Results Component Value Date ALB 3.3 (L) 10/18/2018 ALB 4.0 10/17/2018 ALB 4.0 08/20/2018 CASE DISCUSSED IN DETAIL WITH PATIENT/ care team, ANSWERS ALL QUESTIONS IN DETAIL, VERBALIZ ES UNDERSTANDING ANTONIO PABON MD 10/18/2018 TIEN NICHOLSON Seen earlier and charting completed later Dictation software, [employer], used which may contain error for similar sounding words even af ter review. Personal communication requested for any clarification. Gerber Pearson MD - 10/17/2018 7:17 AM PDTFormatting of this note may be different from the original. [facility] Service: Hospitalist Progress Note Hospital Day: LOS: 0 days Post-Op Day: * No surgery found * SUBJECTIVE Patient Summary: Admission H&P Dr. Hogue:" The patient is 23 y.o. female with significant past medical history of end-stage renal dise ase on hemodialysis Monday, Monday and Monday (nephrology Dr Hinson), history of Henoch Sc honlein purpura, recurrent bilateral pleural effusions requiring thoracentesis, combined sys tolic and diastolic heart failure with ejection fraction of 20-25% who presents with dyspnea Patient was recently discharged from [facility] on 08/23/2018. For full note, please see discha rge summary from hospitalist. In summary, the patient was admitted for noncardiogenic pulmo nary edema after thoracentesis. At that point, prior to admission, she was seen at the [facility] at [facility] in [place] on 08/21 where she underwent right th oracentesis with removal of 2.5 L of fluid. She was sent home after the procedure and subse quently developed dyspnea with x-ray concerning for pulmonary edema. During hospitalization nephrology was consulted, she underwent hemodialysis on 08/21 and 619. Patient improved cli nically and radiologically and she was discharged in good condition on 08/23. Patient, to the ED due to dyspnea for the last 3-4 days. She has not been compliant with h er dialysis, last treatment was 2 weeks ago. She did when this Monday, for which she receiv ed only half therapy due to patient leaving the hemodialysis due to anxiety problems. Patie nt refers that lately she is having a lot of stress in her life, recently her best friend pa ssed away and her nephew had to go for surgery, which has exacerbated her underlying anxiety disorder impeding her to go to treatment. Patient denies any recent fever, chills or nitra barry. Denies any recent cough, sputum production. No lower extremity edema but positive asc ites and dyspnea at moderate activity which has been getting possibly worse since Monday, 4 days ago. In the emergency department, the patient has remained hemodynamically stable. EKG shows si nus tachycardia without any acute ST changes but nonspecific T wave changes. First set of c ardiac enzymes shows a troponin of 0.151. BNP level of 1151. Chest x-ray shows cardiomegal y, pulmonary edema, large right pleural effusion. Hospitalist service was consulted for fur ther management" Events Overnight: 23-year-old female history of end-stage renal disease on hemodialysis history of poor compl iance, history of Henoch-schnlein purpura , combined systolic/diastolic congestive heart fa ilure (echo 06/12/18: EF 30 to 35%, severe diastolic dysfunction grade 3 severe tricuspid va lve regurgitation, severe pulmonary hypertension), recurrent pleural effusion, admitted 08/22 for noncardiogenic pulmonary edema due to reexpansion lung injury after thoracentesis. Patient indicates that she is been noncompliant with her hemodialysis for over 2 weeks in a ddition has been noncompliant with her medications. She presented to the emergency department yesterday with a progressive dyspnea lower extrem ity edema, on evaluation she was noted to have a creatinine of 14.52 BUN 89, potassium 5.5. Chest x-ray showed cardiomegaly pulmonary edema and again right large pleural effusion. Sh e was hemodynamically stable on 2 L. She was admitted, she is scheduled for hemodialysis today. Currently seen at bedside awake alert though frail-appearing. Denies chest pain no fever Dr. Pabon has been consulted. I did discuss the case over the phone with patient's construction administrative assistant Dr. Mahmood, recommends medi oly management and resumption of hemodialysis and I will follow-up outpatient Scheduled Medications clopidogrel 75 mg Oral Daily heparin 5,000 Units Subcutaneous 2 times per day metoprolol 50 mg Oral Nightly pantoprazole 40 mg Oral QAM AC sevelamer 2,400 mg Oral TID WC valsartan 80 mg Oral Daily Continuous Infusions PRN Medications acetaminophen OR acetaminophen, albuterol, ipratropium-albuterol, ondansetron OR on dansetron, polyethylene glycol, promethazine, zolpidem OBJECTIVE Vital Signs: BP 150/90 (BP Location: Right upper arm) | Pulse 108 | Temp 97.1 F (36.2 C) (Oral) | Resp 22 | Ht 1.702 m (5' 7.01") | Wt 76.1 kg (167 lb 12.3 oz) | LMP 06/21/2018 | SpO2 9 1% | BMI 26.27 kg/m Temp: [96.8 F (36 C)-97.6 F (36.4 C)] 97.1 F (36.2 C) (10/17 658) BP: (150-170)/(90-113) 150/90 (10/17 658) Heart Rate: [97-110] 108 (10/17 658) Resp: [20-24] 22 (10/17 658) SpO2: [91 %-98 %] 91 % (10/17 658) Height: [170.2 cm (5' 7")-170.2 cm (5' 7.01")] 170.2 cm (5' 7.01") (10/17 653) Weight: [76 kg (167 lb 8.8 oz)-76.1 kg (167 lb 12.3 oz)] 76.1 kg (167 lb 12.3 oz) (10/17 0 654) BMI (Calculated): [26.3] 26.3 (10/17 653) Physical Exam Constitutional: She appears well-developed. Awake alert frail-appearing on 3 L oxygen breathing slightly labored HENT: Head: Normocephalic. Neck: JVD present. Cardiovascular: Normal rate and regular rhythm. Pulmonary/Chest: Decreased breath sounds right chest wall Abdomina/Gl: Abdomen soft, nontender Musculoskeletal: +1 pitting edema bilateral lower ankles Petechiae noted to the lower ankles Skin: Skin is warm. No erythema. Psychiatric: She has a normal mood and affect. Nursing note and vitals reviewed. DATA CBC: Lab Results Component Value Date WBC 6.63 10/17/2018 RBC 3.07 (L) 10/17/2018 HGB 10.9 (L) 10/17/2018 HCT 32.7 (L) 10/17/2018 MCV 106.7 (H) 10/17/2018 MCH 35.6 (H) 10/17/2018 MCHC 33.4 10/17/2018 RDW 56.4 (H) 10/17/2018 PLT 158 10/17/2018 MPV 10.2 10/17/2018 DIFFTYPE AUTOMATED 10/17/2018 BMP: Lab Results Component Value Date NA 142 10/17/2018 K 5.5 (H) 10/17/2018 CL 104 10/17/2018 CO2 17 (L) 10/17/2018 ANIONGAP 27 (H) 10/17/2018 GLUF 91 10/17/2018 BUN 89 (H) 10/17/2018 CREATININE 14.52 (H) 10/17/2018 BCR 6 10/17/2018 CA 8.9 10/17/2018 EGFR 3 (L) 10/17/2018 Last 3 Troponin: Lab Results Component Value Date TROPONINI 0.151 (H) 10/17/2018 TROPONINI 0.077 (H) 07/19/2018 TROPONINI 0.102 (H) 07/19/2018 CPK: Lab Results Component Value Date CKTOTAL 690 (H) 10/17/2018 CKMB: Lab Results Component Value Date CKMB 17.8 (H) 10/17/2018 Troponin I: Lab Results Component Value Date TROPONINI 0.151 (H) 10/17/2018 X-ray Chest 1 View Result Date: 10/17/2018 Cardiomegaly with pulmonary edema and large right pleural effusion. Signed by: Suha Echols Julie Sign Date/Time: 10/17/2018 4:25 AM PROBLEM LIST Principal Problem: Non-cardiogenic pulmonary edema Active Problems: HSP (Henoch Schonlein purpura) Dyspnea Pleural effusion on right Non-compliance Hyperkalemia Moderate to severe pulmonary hypertension (HCC) Chronic 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) End stage renal disease (HCC) ASSESSMENT & PLAN #1. End-stage renal disease's on hemodialysis -Presents with volume overload due to noncompliance with hemodialysis and a combined systol ic/diastolic chronic congestive heart -Potassium 5.5, creatinine 14, BUN 90 -History of a Cheshire Schnlein purpura -Last hemodialysis approximately 2 weeks ago -Nephrology has been consulted for hematology #2. [...] phone; outpatient follow-up recommended #3. Recurrent pleural effusion -Presents with large right pleural effusion due to noncompliance with hemodialysis and a co mbined systolic/diastolic congestive heart failure -Prior history of a recurrent thoracentesis, admitted zero 08/22 with reexpansion lung injur y -Resume hemodialysis, scheduled for repeat right pleural effusion, currently symptomatic on 3 L oxygen I #4. DVT prophylax -Subcu heparin Disposition: Code Status: Full Code Gerber Pearson MD 10/17/2018in this encounter Plan of Treatment Not on fileas of this encounter Procedures + +--------+ + + + | Procedure Name | Priori | Date/Time | Associated Diagnosis | Comments | | | ty | | | | + +--------+ + + + | BASIC METABOLIC | Routin | 10/19/2018 | | Results for this | | PANEL | e | 6:20 AM | | procedure are in the | | | | PDT | | results section. | + +--------+ + + + | XR CHEST | Routin | 10/18/2018 | | Results for this | | INSPIRATION/EXPIRATI | e | 5:02 PM | | procedure are in the | | ON | | PDT | | results section. | + +--------+ + + + | US THORACENTESIS | Routin | 10/18/2018 | | Results for this | | WITH IMAGING | e | 4:07 PM | | procedure are in the | | GUIDANCE | | PDT | | results section. | + +--------+ + + + | EKG STANDARD 12 LEAD | Routin | 10/18/2018 | | Results for this | | | e | 6:38 AM | | procedure are in the | | | | PDT | | results section. | + +--------+ + + + | CBC W/AUTO DIFF | Routin | 10/18/2018 | | Results for this | | (REFLEX TO MANUAL) | e - AM | 5:44 AM | | procedure are in the | | | | PDT | | results section. | + +--------+ + + + | MAGNESIUM | Routin | 10/18/2018 | | Results for this | | | e - AM | 5:44 AM | | procedure are in the | | | | PDT | | results section. | + +--------+ + + + | COMPREHENSIVE | Routin | 10/18/2018 | | Results for this | | METABOLIC PANEL | e - AM | 5:44 AM | | procedure are in the | | | | PDT | | results section. | + +--------+ + + + | TROPONIN I | Timed | 10/17/2018 | | Results for this | | | | 6:05 PM | | procedure are in the | | | | PDT | | results section. | + +--------+ + + + | CK | Timed | 10/17/2018 | | Results for this | | | | 6:05 PM | | procedure are in the | | | | PDT | | results section. | + +--------+ + + + | TROPONIN I | Timed | 10/17/2018 | | Results for this | | | | 11:59 AM | | procedure are in the | | | | PDT | | results section. | + +--------+ + + + | CK | Timed | 10/17/2018 | | Results for this | | | | 11:59 AM | | procedure are in the | | | | PDT | | results section. | + +--------+ + + + | PROTIME-INR | Add-On | 10/17/2018 | | Results for this | | | | 8:10 AM | | procedure are in the | | | | PDT | | results section. | + +--------+ + + + | XR CHEST 1 VIEW | STAT | 10/17/2018 | | Results for this | | | | 3:57 AM | | procedure are in the | | | | PDT | | results section. | + +--------+ + + + | EKG 12 LEAD UNIT | Routin | 10/17/2018 | | Results for this | | PERFORMED | e | 3:50 AM | | procedure are in the | | | | PDT | | results section. | + +--------+ + + + | [facility] CARD PANEL W/O | STAT | 10/17/2018 | | Results for this | | TRP (ED ONLY) | | 3:49 AM | | procedure are in the | | | | PDT | | results section. | + +--------+ + + + | TROPONIN I | STAT | 10/17/2018 | | Results for this | | | | 3:49 AM | | procedure are in the | | | | PDT | | results section. | + +--------+ + + + | BRAIN NATRIURETIC | STAT | 10/17/2018 | | Results for this | | PEPTIDE | | 3:49 AM | | procedure are in the | | | | PDT | | results section. | + +--------+ + + + | ED INFORMATION | Routin | 10/17/2018 | | Results for this | | EXCHANGE | e | 1:10 AM | | procedure are in the | | | | PDT | | results section. | + +--------+ + + + in this encounter Results Basic metabolic panel (10/19/2018 6:20 AM) + + + + + | Component | Value | Ref Range | Performed At | + + + + + | SODIUM | 138 | 135 - 145 mmol/L | [facility] | | | | | LABORATORY | + + + + + | POTASSIUM | 4.1 | 3.5 - 4.9 mmol/L | [facility] | | | | | LAB[facility]AT[facility] | + + + + + | CHLORIDE | 99 | 99 - 109 mmol/L | [facility] | | | | | [facility] | + + + + + | CO2 | 30 | 23 - 32 mmol/L | [facility] | | | | | LAB[facility]AT[facility] | + + + + + | ANION GAP AGAP | 13 | 5 - 20 mmol/L | [facility] | | | | | LAB[facility]AT[facility] | + + + + + | GLUCOSE | 84 | 65 - 99 mg/dL | [facility] | | | | | LAB[facility]AT[facility] | + + + + + | BUN | 31 (H) | 8 - 25 mg/dL | [facility] | | | | | LABORATORY | + + + + + | CREATININE | 7.2 (H) | 0.50 - 1.00 mg/dL | [facility] | | | | | LABORATORY | + + + + + | BUN/CREAT | 4 | | [facility] | | | | | LAB[facility] | + + + + + | CALCIUM | 9.2 | 8.5 - 10.5 mg/dL | [facility] | | | | | LAB[facility]AT[facility] | + + + + + | EGFR | 7 (L)Comment: GFR <60: | >60 mL/min/1.73m2 | [facility] | | | CHRONIC KIDNEY DISEASE, | | LABORATORY | | | IF FOUND OVER A 3 MONTH | | | | | PERIOD.GFR <15: KIDNEY | | | | | FAILURE.FOR | | | | | AMERICANS, MULTIPLY THE | | | | | CALCULATED GFR BY | | | | | 1.210.This eGFR is | | | | | calculated using the | | | | | MDRD IDMS traceable | | | | | equation.Testing | | | | | performed at [facility], [address] | | | | [facility], | | | | | [place] [address] | | | + + + + + + + | Specimen | + + | Blood | + + + + + + + | Performing | Address | City/State/Zipcode | Phone Number | | Organization | | | | + + + + + | [facility] | [address] | [place] [address] | [phone] | | LABORATORY | [address] | | | + + + + + X-ray chest inspiration & expiration (10/18/2018 5:02 PM) + + + | Impressions | Performed At | + + + | 1. Interval decrease in volume of the large right pleural effusion | [facility] | | consistent with the history of thoracentesis 2. No pneumothorax to | RADIOLOGY | | suggest complication of the procedure 3. Persistent cardiomegaly with | | | CHF pattern Signed by: Eliza Coy, Van Sign Date/Time: | | | 10/18/2018 6:05 PM | | + + + + + + | Narrative | Performed At | + + + | CHEST INSPIRATION OR EXPIRATION ONLY CLINICAL INFORMATION: Post | DLE | | thoracentesis. COMPARISON: US THORACENTESIS WITH IMAGING GUIDANCE | RADIOLOGY | | (10/18/2018); XR CHEST 1 VIEW (10/17/2018); CHEST TWO VIEWS [id number] | | | (10/17/2018); FINDINGS: Compared to the prior examination there | | | appears to be interval decrease in the volume of the large right | | | pleural effusion. No pneumothorax is evident. There is | | | persistent large right pleural fluid collection. Cardiomegaly with | | | pulmonary vascular engorgement and cephalization of flow consistent | | | with a CHF pattern again noted. | | + + + + + | Procedure Note | + + | Cedric, Rad Results In - 10/18/2018 6:08 PM PDT CHEST INSPIRATION OR EXPIRATION ONLY | | CLINICAL INFORMATION: | | Post thoracentesis. | | COMPARISON: | | US THORACENTESIS WITH IMAGING GUIDANCE (10/18/2018); XR CHEST 1 VIEW | | (10/17/2018); CHEST TWO VIEWS [id number] (10/17/2018); | | FINDINGS: | | Compared to the prior examination there appears to be interval decrease | | in the volume of the large right pleural effusion. No pneumothorax is | | evident. There is persistent large right pleural fluid collection. | | Cardiomegaly with pulmonary vascular engorgement and cephalization of | | flow consistent with a CHF pattern again noted. | | IMPRESSION: | | 1. Interval decrease in volume of the large right pleural effusion | | consistent with the history of thoracentesis | | 2. No pneumothorax to suggest complication of the procedure | | 3. Persistent cardiomegaly with CHF pattern | | Signed by: Eliza Coy Dwane | | Sign Date/Time: 10/18/2018 6:05 PM | + + + + + + + | Performing | Address | City/State/Zipcode | Phone Number | | Organization | | | | + + + + + | [facility] | [address] | [place] [address] | | + + + + + US thoracentesis (includes imaging) (10/18/2018 4:07 PM) + + | Specimen | + + | Body Fluid | + + + + + | Impressions | Performed At | + + + | Uncomplicated thoracentesis. 1.5 L of turbid yellow fluid which was | [facility] | | discarded. Procedure performed by Cheryl Connell PA-C. I, Dr. | RADIOLOGY | | Colten Hutchins, supervised the procedure and was present for the entire | | | procedure. Dictated by: Javon Connell Nicole Signed by: Liset | | | Colten Kay Date/Time: 10/18/2018 5:29 PM The radiologist has | | | reviewed the images and edited/approved the report. For | | | interventional procedures, the signing radiologist was present for | | | the esquivel portions of the exam. | | + + + + + + | Narrative | Performed At | + + + | ULTRASOUND GUIDED RIGHT THORACENTESIS CLINICAL INFORMATION: | [facility] | | Recurrent right pleural effusion. PROCEDURE: Prior to the procedure, | RADIOLOGY | | risks and benefits were explained to the patient and informed | | | written and verbal consent obtained. Patient was placed in upright | | | position and location adjacent to pleural fluid marked on the skin | | | using ultrasound guidance and the area prepped and draped in the | | | usual sterile fashion. Using lidocaine for local anesthesia, the | | | pleural space is punctured with an 5 Hungarian Escapia | | | catheter. Fluid is aspirated without complication. The patient | | | tolerated the procedure well. No immediate complications. Estimated | | | Blood Loss: Minimal. | | + + + + + | Procedure Note | + + | Cedric, Rad Results In - 10/18/2018 5:33 PM PDT ULTRASOUND GUIDED RIGHT THORACENTESIS | | CLINICAL INFORMATION: | | Recurrent right pleural effusion. | | PROCEDURE: | | Prior to the procedure, risks and benefits were explained to the | | patient and informed written and verbal consent obtained. Patient was | | placed in upright position and location adjacent to pleural fluid | | marked on the skin using ultrasound guidance and the area prepped and | | draped in the usual sterile fashion. Using lidocaine for local | | anesthesia, the pleural space is punctured with an 5 Hungarian Yueh | | centesis catheter. Fluid is aspirated without complication. The | | patient tolerated the procedure well. No immediate complications. | | Estimated Blood Loss: Minimal. | | IMPRESSION: | | Uncomplicated thoracentesis. 1.5 L of turbid yellow fluid which was | | discarded. | | Procedure performed by Cheryl Connell PA-C. I, Dr. Colten Hutchins, | | supervised the procedure and was present for the entire procedure. | | Dictated by: Javon Connell Nicole | | Signed by: Eliza Hutchins Howard | | Sign Date/Time: 10/18/2018 5:29 PM | | The radiologist has reviewed the images and edited/approved | | the report. For interventional procedures, the signing | | radiologist was present for the esquivel portions of the exam. | + + + + + + + | Performing | Address | City/State/Zipcode | Phone Number | | Organization | | | | + + + + + | [facility] | [address] | [facility] [place] [address] | | + + + + + EKG STANDARD 12 LEAD (10/18/2018 6:38 AM) + + + + + | Component | Value | Ref Range | Performed At | + + + + + | Ventricular Rate | 82 | BPM | [facility] | + + + + + | Atrial Rate | 82 | BPM | [facility] | + + + + + | P-R Interval | 178 | ms | [facility] | + + + + + | QRS Duration | 88 | ms | [facility] | + + + + + | Q-T Interval | 402 | ms | [facility] | + + + + + | QTC Calculation | 469 | ms | [facility] | | (Bezet) | | | | + + + + + | Calculated P [place] | 46 | degrees | [facility] | + + + + + | Calculated R [place] | 127 | degrees | [facility] | + + + + + | Calculated T [place] | 94 | degrees | [facility] | + + + + + | Diagnosis | Normal sinus rhythmRight | | [facility] | | | axis | | | | | deviationNonspecific T | | | | | wave | | | | | abnormalityProlonged | | | | | QTAbnormal ECGWhen | | | | | compared with ECG of | | | | | 17-OCT-2018 03:50,QRS | | | | | axis Shifted | | | | | rightInverted T waves | | | | | have replaced | | | | | nonspecific T wave | | | | | abnormality in Lateral | | | | | leadsConfirmed by Nir | | | | | Corinne ALMEIDA ([id number]) on | | | | | 10/18/2018 9:02:49 PM | | | + + + + + + + + + + | Performing | Address | City/State/Zipcode | Phone Number | | Organization | | | | + + + + + | [facility] | [address] | [place] [address] | | + + + + + Comprehensive Metabolic Panel (10/18/2018 5:44 AM) + + + + + | Component | Value | Ref Range | Performed At | + + + + + | SODIUM | 138 | 135 - 145 mmol/L | [facility] | | | | | LABORATORY | + + + + + | POTASSIUM | 4.5 | 3.5 - 4.9 mmol/L | [facility] | | | | | LABORATORY | + + + + + | CHLORIDE | 99 | 99 - 109 mmol/L | [facility] | | | | | LABORATORY | + + + + + | CO2 | 29 | 23 - 32 mmol/L | [facility] | | | | | LABORATORY | + + + + + | ANION GAP AGAP | 15 | 5 - 20 mmol/L | [facility] | | | | | LABORATORY | + + + + + | GLUCOSE | 91 | 65 - 99 mg/dL | [facility] | | | | | LABORATORY | + + + + + | BUN | 49 (H) | 8 - 25 mg/dL | [facility] | | | | | LABORATORY | + + + + + | CREATININE | 9.3 (H) | 0.50 - 1.00 mg/dL | [facility] | | | | | LABORATORY | + + + + + | BUN/CREAT | 5 | | [facility] | | | | | LABORAT[facility] | + + + + + | CALCIUM | 9.8 | 8.5 - 10.5 mg/dL | [facility] | | | | | LABORATORY | + + + + + | TOTAL PROTEIN | 7.0 | 6.3 - 8.2 g/dL | [facility] | | | | | LABORATORY | + + + + + | Albumin | 3.3 (L) | 3.6 - 5.0 g/dL | [facility] | | | | | LABORATORY | + + + + + | GLOBULIN | 3.7 | 1.3 - 4.9 g/dL | [facility] | | | | | LABORATORY | + + + + + | A/G | 0.9 (L) | 1.0 - 2.4 | [facility] | | | | | LABORATORY | + + + + + | TBIL | 0.8 | 0.1 - 1.5 mg/dL | [facility] | | | | | LABORATORY | + + + + + | ALK PHOS | 89 | 35 - 115 U/L | [facility] | | | | | LABORATORY | + + + + + | AST | 28 | 10 - 45 U/L | [facility] | | | | | LABORATORY | + + + + + | ALT | 36 | 10 - 65 U/L | [facility] | | | | | LABORATORY | + + + + + | EGFR | 5 (L)Comment: GFR <60: | >60 mL/min/1.73m2 | [facility] | | | CHRONIC KIDNEY DISEASE, | | LABORATORY | | | IF FOUND OVER A 3 MONTH | | | | | PERIOD.GFR <15: KIDNEY | | | | | FAILURE.FOR | | | | | AMERICANS, MULTIPLY THE | | | | | CALCULATED GFR BY | | | | | 1.210.This eGFR is | | | | | calculated using the | | | | | MDRD [facility] traceable | | | | | equation.Testing | | | | | performed at [facility], [address] | | | | [facility], | | | | | [place] [address] | | | + + + + + + + | Specimen | + + | Blood | + + + + + + + | Performing | Address | City/State/Zipcode | Phone Number | | Organization | | | | + + + + + | [facility] | [address] [place] [address] | [place] [address] | [phone] | | LABORATORY | [address] | | | + + + + + Magnesium (10/18/2018 5:44 AM) + + + + + | Component | Value | Ref Range | Performed At | + + + + + | MAGNESIUM | 2.4Comment: Testing | 1.7 - 2.4 mg/dL | [facility] | | | performed at [facility], [address] | | LABORATORY | | | [address], | | | | | [place] [address] | | | + + + + + + + | Specimen | + + | Blood | + + + + + + + | Performing | Address | City/State/Zipcode | Phone Number | | Organization | | | | + + + + + | [facility] | [address] | [place] [address] | [phone] | | LABORATORY | [address] | | | + + + + + CBC W/Auto Diff (Reflex to Manual) (10/18/2018 5:44 AM) + + + + + | Component | Value | Ref Range | Performed At | + + + + + | WBC | 5.73 | 3.80 - 11.00 K/uL | [facility] | | | | | LABORATORY | + + + + + | RBC | 3.24 (L) | 3.70 - 5.10 M/uL | [facility] | | | | | LABORATORY | + + + + + | HGB | 11.7 | 11.3 - 15.5 g/dL | [facility] | | | | | LABORATORY | + + + + + | HCT | 35.3 | 34.0 - 46.0 % | [facility] | | | | | LABORATORY | + + + + + | MCV | 109.1 (H) | 80.0 - 100.0 fl | [facility] | | | | | LABORATORY | + + + + + | MCH | 36.2 (H) | 27.0 - 34.0 pg | [facility] | | | | | LABORATORY | + + + + + | MCHC | 33.1 | 32.0 - 35.5 g/dL | [facility] | | | | | LABORATORY | + + + + + | RDW SD | 56.4 (H) | 37 - 53 fl | [facility] | | | | | LABORATORY | + + + + + | PLT | 156 | 150 - 400 K/uL | [facility] | | | | | LABORATORY | + + + + + | MPV | 10.0 | fl | [facility] | | | | | LABORATORY | + + + + + | DIFF TYPE | AUTOMATED | | [facility] | | | | | LAB[facility]ATORY | + + + + + | NEUTROPHILS | 65.19 | % | [facility] | | | | | LABORATORY | + + + + + | LYMPHOCYTES | 16.92 | % | [facility] | | | | | LABORATORY | + + + + + | MONOCYTES | 6.14 | % | [facility] | | | | | LABORATORY | + + + + + | EOSINOPHILS | 10.47 | % | [facility] | | | | | LABORATORY | + + + + + | BASOPHILS | 1.28 | % | [facility] | | | | | LABORATORY | + + + + + | NEUTROPHILS ABS | 3.73 | 1.90 - 7.40 K/uL | [facility] | | | | | LABORATORY | + + + + + | LYMPHOCYTES ABS | 0.97 (L) | 1.00 - 3.90 K/uL | [facility] | | | | | LABORATORY | + + + + + | MONOCYTES ABS | 0.35 | 0.00 - 0.80 K/uL | [facility] | | | | | LABORATORY | + + + + + | EOSINOPHILS ABS | 0.60 (H) | 0.00 - 0.50 K/uL | [facility] | | | | | LABORATORY | + + + + + | BASOPHILS ABS | 0.07 | 0.00 - 0.10 K/uL | [facility] | | | | | LABORATORY | + + + + + | MORPHOLOGY | 2+Comment: | | [facility] | | | MACRO1+ANISONORMAL PLT | | LABORATORY | | | MORPHTesting performed | | | | | at [facility], [address] | | | | [facility], | | | | | [place] [address] | | | | |Testing performed at [facility], [address] [facility], [place] [address] | | | | | | | | + + + + + + + | Specimen | + + | Blood | + + + + + + + | Performing | Address | City/State/Zipcode | Phone Number | | Organization | | | | + + + + + | [facility] | [address] | [place] [address] | [phone] | | LABORATORY | [address] | | | + + + + + Troponin I (10/17/2018 6:05 PM) + + + + + | Component | Value | Ref Range | Performed At | + + + + + | TROPONIN I | 0.175 (H)Comment: 0.04 | 0.00 - 0.04 ng/mL | [facility] | | | ng/mL or | | | | | less Nega | | | | | tive, repeat testing in | | | | | four to six hour if | | | | | clinically indicted0.05 | | | | | to 0.77 | | | | | ng/mL Leti | | | | | picious for myocardial | | | | | injury. Serial | | | | | measurements may be | | | | | necessary to confirm or | | | | | exclude the diagnosis of | | | | | acute coronary | | | | | syndrome. Repeat testing | | | | | in four to six hours if | | | | | indicated.0.78 or | | | | | greater | | | | | ng/mL Consistent | | | | | with myocardial injury. | | | | | Clinical and laboratory | | | | | correlation recommended. | | | | | Testing performed at | | | | | [facility];[address] [place] [address] | | | | | [facility];[place] [address] | | | + + + + + + + | Specimen | + + | Blood | + + + + + + + | Performing | Address | City/State/Zipcode | Phone Number | | Organization | | | | + + + + + | [facility] | [address] | [place] [address] | | + + + + + CPK (10/17/2018 6:05 PM) + + + + + | Component | Value | Ref Range | Performed At | + + + + + | CPK | 443 (H)Comment: Testing | 30 - 240 U/L | [facility] | | | performed at [facility];[address] | [address];[place] | | | | | [address] | | | + + + + + + + | Specimen | + + | Blood | + + + + + + + | Performing | Address | City/State/Zipcode | Phone Number | | Organization | | | | + + + + + | [facility] | [address] | [place] [address] | | + + + + + Troponin I (10/17/2018 11:59 AM) + + + + + | Component | Value | Ref Range | Performed At | + + + + + | TROPONIN I | 0.119 (H)Comment: 0.04 | 0.00 - 0.04 ng/mL | [facility] | | | ng/mL or | | | | | less Nega | | | | | tive, repeat testing in | | | | | four to six hour if | | | | | clinically indicted0.05 | | | | | to 0.77 | | | | | ng/mL Leti | | | | | picious for myocardial | | | | | injury. Serial | | | | | measurements may be | | | | | necessary to confirm or | | | | | exclude the diagnosis of | | | | | acute coronary | | | | | syndrome. Repeat testing | | | | | in four to six hours if | | | | | indicated.0.78 or | | | | | greater | | | | | ng/mL Consistent | | | | | with myocardial injury. | | | | | Clinical and laboratory | | | | | correlation recommended. | | | | | Testing performed at | | | | | [facility];[address] | | | | | [address]vd;[place] [address] | | | + + + + + + + | Specimen | + + | Blood | + + + + + + + | Performing | Address | City/State/Zipcode | Phone Number | | Organization | | | | + + + + + | [facility] | [address] | [place] [address] | | + + + + + CPK (10/17/2018 11:59 AM) + + + + + | Component | Value | Ref Range | Performed At | + + + + + | CPK | 623 (H)Comment: Testing | 30 - 240 U/L | [facility] | | | performed at [facility];[address];[place] | | | | | [address] | | | + + + + + + + | Specimen | + + | Blood | + + + + + + + | Performing | Address | City/State/Zipcode | Phone Number | | Organization | | | | + + + + + | [facility] | [address] | [place] [address] | | + + + + + Protime-INR (10/17/2018 8:10 AM) + + + + + | Component | Value | Ref Range | Performed At | + + + + + | INR | 1.2Comment: REFERENCE | | [facility] | | | RANGE:0.9 - | | | | | 1.2 NON-ANTICOAGULATE | | | | | D2.0 - 3.0 ALL OTHER | | | | | THERAPEUTIC | | | | | INDICATIONS2.5 - 3.5 | | | | | MECHANICAL HEART VALVES, | | | | | RECURRENT OR SYSTEMIC | | | | | EMBOLISMTesting | | | | | performed at [facility];[address] | | | | | [address];[place] | | | | | [address] | | | + + + + + + + | Specimen | + + | Blood | + + + + + + + | Performing | Address | City/State/Zipcode | Phone Number | | Organization | | | | + + + + + | [facility] | [address] | [place] [address] | | + + + + + X-ray Chest 1 View (10/17/2018 3:57 AM) + + + | Impressions | Performed At | + + + | Cardiomegaly with pulmonary edema and large right pleural effusion. | [facility] | | Signed by: Eliza Echols Julie Sign Date/Time: 10/17/2018 4:25 AM | RADIOLOGY | + + + + + + | Narrative | Performed At | + + + | CHEST ONE VIEW CLINICAL INFORMATION: Shortness of breath, | [facility] | | primarily right-sided, for several days. COMPARISON: XR CHEST 2 VIEW | RADIOLOGY | | FRONTAL AND LATERAL (08/22/2018); XR CHEST 2 VIEW FRONTAL AND LATERAL | | | (08/21/2018); FINDINGS: Cardiomegaly with findings of pulmonary | | | edema with large right pleural effusion. No pneumothorax. Bones | | | unremarkable. | | + + + + + | Procedure Note | + + | Cedric, Rad Results In 10/17/2018 4:29 AM PDT CHEST ONE VIEW | | CLINICAL INFORMATION: | | Shortness of breath, primarily right-sided, for several days. | | COMPARISON: | | XR CHEST 2 VIEW FRONTAL AND LATERAL (08/22/2018); XR CHEST 2 VIEW | | FRONTAL AND LATERAL (08/21/2018); | | FINDINGS: | | Cardiomegaly with findings of pulmonary edema with large right pleural | | effusion. No pneumothorax. Bones unremarkable. | | IMPRESSION: | | Cardiomegaly with pulmonary edema and large right pleural effusion. | | Signed by: Eliza Echols Julie | | Sign Date/Time: 10/17/2018 4:25 AM | + + + + + + + | Performing | Address | City/State/Zipcode | Phone Number | | Organization | | | | + + + + + | [facility] | [address] | [place] [address] | | + + + + + EKG 12 LEAD UNIT PERFORMED (10/17/2018 3:50 AM) + + + + + | Component | Value | Ref Range | Performed At | + + + + + | Ventricular Rate | 103 | BPM | [facility] | + + + + + | Atrial Rate | 103 | BPM | [facility] | + + + + + | P-R Interval | 168 | ms | [facility] | + + + + + | QRS Duration | 86 | ms | [facility] | + + + + + | Q-T Interval | 350 | ms | [facility] | + + + + + | QTC Calculation | 458 | ms | [facility] | | (Bezet) | | | | + + + + + | Calculated P [place] | 33 | degrees | [facility] | + + + + + | Calculated R [place] | -22 | degrees | [facility] | + + + + + | Calculated T [place] | 92 | degrees | [facility] | + + + + + | Diagnosis | Sinus | | [facility] | | | tachycardiaNonspecific T | | | | | wave | | | | | abnormalityAbnormal | | | | | ECGWhen compared with | | | | | ECG of 28-JUN-2018 | | | | | 12:17,Previous ECG has | | | | | undetermined rhythm, | | | | | needs reviewThis ECG | | | | | contains Unconfirmed | | | | | Interpretation | | | | | Statements. See ED | | | | | Record for Physician | | | | | Interpretation. | | | | | Confirmed by [facility] READ | | | | | ONLY, -COMPUTER ([id number]), | | | | | international editorial producer Daniela Esquivel | | | | | ([id number]) on 10/17/2018 | | | | | 9:07:21 AM | | | + + + + + + + + + + | Performing | Address | City/State/Zipcode | Phone Number | | Organization | | | | + + + + + | [facility] | [address] | [place] [address] | | + + + + + Brain natriuretic peptide (10/17/2018 3:49 AM) + + + + + | Component | Value | Ref Range | Performed At | + + + + + | BRAIN NATRIURETIC | 1151.26 (H)Comment: | 0 - 100 pg/mL | [facility] | | PEPTIDE | Testing performed at | | | | | [facility];[address] | | | | | [place] [address] | | | + + + + + + + + + + | Performing | Address | City/State/Zipcode | Phone Number | | Organization | | | | + + + + + | [facility] | [address] | [place] [address] | | + + + + + Troponin I, Lab (10/17/2018 3:49 AM) + + + + + | Component | Value | Ref Range | Performed At | + + + + + | TROPONIN I | 0.151 (H)Comment: 0.04 | 0.00 - 0.04 ng/mL | [facility] | | | ng/mL or | | | | | less Nega | | | | | tive, repeat testing in | | | | | four to six hour if | | | | | clinically indicted0.05 | | | | | to 0.77 | | | | | ng/mL Leti | | | | | picious for myocardial | | | | | injury. Serial | | | | | measurements may be | | | | | necessary to confirm or | | | | | exclude the diagnosis of | | | | | acute coronary | | | | | syndrome. Repeat testing | | | | | in four to six hours if | | | | | indicated.0.78 or | | | | | greater | | | | | ng/mL Consistent | | | | | with myocardial injury. | | | | | Clinical and laboratory | | | | | correlation recommended. | | | | | Testing performed at | | | | | [facility];[address] | | | [address];[place] [address] | | | + + + + + + + | Specimen | + + | Blood | + + + + + + + | Performing | Address | City/State/Zipcode | Phone Number | | Organization | | | | + + + + + | [facility] | [address] | [facility] [place] [address] | | + + + + + Cardiac Panel (10/17/2018 3:49 AM) + + + + + | Component | Value | Ref Range | Performed At | + + + + + | WBC | 6.63 | 3.80 - 11.00 K/uL | [facility] | + + + + + | RBC | 3.07 (L) | 3.70 - 5.10 M/uL | [facility] | + + + + + | HGB | 10.9 (L) | 11.3 - 15.5 g/dL | [facility] | + + + + + | HCT | 32.7 (L) | 34.0 - 46.0 % | [facility] | + + + + + | MCV | 106.7 (H) | 80.0 - 100.0 fl | [facility] | + + + + + | MCH | 35.6 (H) | 27.0 - 34.0 pg | [facility] | + + + + + | MCHC | 33.4 | 32.0 - 35.5 g/dL | [facility] | + + + + + | RDW SD | 56.4 (H) | 37 - 53 fl | [facility] | + + + + + | PLT | 158 | 150 - 400 K/uL | [facility] | + + + + + | MPV | 10.2 | fl | [facility] | + + + + + | DIFF TYPE | AUTOMATED | | [facility] | + + + + + | NEUTROPHILS | 70.67 | % | [facility] | + + + + + | LYMPHOCYTES | 15.06 | % | [facility] | + + + + + | MONOCYTES | 3.99 | % | [facility] | + + + + + | EOSINOPHILS | 9.11 | % | [facility] | + + + + + | BASOPHILS | 1.17 | % | [facility] | + + + + + | NEUTROPHILS ABS | 4.68 | 1.90 - 7.40 K/uL | [facility] | + + + + + | LYMPHOCYTES ABS | 1.00 | 1.00 - 3.90 K/uL | [facility] | + + + + + | MONOCYTES ABS | 0.26 | 0.00 - 0.80 K/uL | [facility] | + + + + + | EOSINOPHILS ABS | 0.60 (H) | 0.00 - 0.50 K/uL | [facility] | + + + + + | BASOPHILS ABS | 0.08 | 0.00 - 0.10 K/uL | [facility] | + + + + + | MORPHOLOGY | 2+ | | [facility] | | | Comment: | | | | | MACRO | | | | | NORMAL PLT MORPH | | | | | 1+ | | | | | ANISO | | | | | | | | + + + + + | Platelet Estimate | ADEQUATE | | [facility] | + + + + + | SODIUM | 142 | 135 - 145 mmol/L | [facility] | + + + + + | POTASSIUM | 5.5 (H)Comment: SLT | 3.5 - 4.9 mmol/L | [facility] | | | HEMOLYSIS | | | + + + + + | CHLORIDE | 104 | 99 - 109 mmol/L | [facility] | + + + + + | CO2 | 17 (L) | 23 - 32 mmol/L | [facility] | + + + + + | ANION GAP AGAP | 27 (H) | 5 - 20 mmol/L | [facility] | + + + + + | GLUCOSE | 91 | 65 - 99 mg/dL | [facility] | + + + + + | BUN | 89 (H)Comment: SLT | 8 - 25 mg/dL | [facility] | | | HEMOLYSIS | | | + + + + + | CREATININE | 14.52 (H) | 0.50 - 1.00 mg/dL | [facility] | + + + + + | BUN/CREAT | 6 | | [facility] | + + + + + | CALCIUM | 8.9 | 8.5 - 10.5 mg/dL | [facility] | + + + + + | TOTAL PROTEIN | 6.5 | 6.3 - 8.2 g/dL | [facility] | + + + + + | Albumin | 4.0 | 3.6 - 5.0 g/dL | [facility] | + + + + + | GLOBULIN | 2.5 | 1.3 - 4.9 g/dL | [facility] | + + + + + | A/G | 1.6 | 1.0 - 2.4 | [facility] | + + + + + | TBIL | 0.6 | 0.1 - 1.5 mg/dL | [facility] | + + + + + | ALK PHOS | 85 | 35 - 115 U/L | [facility] | + + + + + | AST | 40 | 10 - 45 U/L | [facility] | + + + + + | ALT | 31 | 10 - 65 U/L | [facility] | + + + + + | EGFR | 3 (L)Comment: GFR <60: | >60 mL/min/1.73m2 | [facility] | | | CHRONIC KIDNEY DISEASE, | | | | | IF FOUND OVER A 3 MONTH | | | | | PERIOD.GFR <15: KIDNEY | | | | | FAILURE.FOR | | | | | AMERICANS, MULTIPLY THE | | | | | CALCULATED GFR BY | | | | | 1.210.This eGFR is | | | | | calculated using the | | | | | MDRD IDMS traceable | | | | | equation. | | | + + + + + | CPK | 690 (H)Comment: SLT | 30 - 240 U/L | [facility] | | | HEMOLYSIS | | | + + + + + | INR | 1.2Comment: REFERENCE | | [facility] | | | RANGE:0.9 - | | | | | 1.2 NON-ANTICOAGULATE | | | | | D2.0 - 3.0 ALL OTHER | | | | | THERAPEUTIC | | | | | INDICATIONS2.5 - 3.5 | | | | | MECHANICAL HEART VALVES, | | | | | RECURRENT OR SYSTEMIC | | | | | EMBOLISM | | | + + + + + | APTT | 23 | 23 - 32 seconds | [facility] | + + + + + | MMB | 17.8 (H) | 0.5 - 3.6 ng/mL | [facility] | + + + + + | CK-MB Index | UNABLE TO | | [facility] | | | CALCULATEComment: | | | | | Testing performed at | | | | | [facility];[address] [place] [address] | | | | | Blvd;[place] [address] | | | + + + + + + + + + + | Performing | Address | City/State/Zipcode | Phone Number | | Organization | | | | + + + + + | [facility] | [address] | [place] [address] | | + + + + + ED INFORMATION EXCHANGE (10/17/2018 1:10 AM) + + + | Narrative | Performed At | + + + | [id number] [id number] Criteria Met Care | ED | | Guidelines 10 in 12 2 in 2 Security and Safety No | INFORMATION | | recent Security Events currently on file ED Care Guidelines There | EXCHANGE | | are currently no ED Care Guidelines for this patient. Please check | | | your facility's medical records system. Care History | | | Medical/Surgical 05/28/18 12:[address] [facility] | | | PATIENT HAS AN APT WITH PCP DR NICHOLSON ON 09/11/18. 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 If patient is seen in | | | the ED during business hours. Please contact CHWs at [facility] | | | [facility]. Care Recommendation: This patient has had 5 or more | | | Emergency Department visits in the last 12 months.Patient requires | | | education on the scope and purpose of the ED as an acute care provider | | | not a Primary Care Provider and should not be utilized for chronic | | | conditions. These are guidelines and the provider should exercise | | | clinical judgment when providing care. Prescription Drug Report | | | (12 Mo.) PDMP query found no report. E.D. Visit Count (12 | | | mo.) Facility Visits Low Acuity [facility] 4 0 | | | [facility] 12 0 Total 16 0 Note: Visits indicate | | | total known visits. Medicaid Low Acuity Dx are the number of primary | | | diagnoses on the Medicaid's Low Acuity dx list. Recent | | | Emergency Department Visit Summary Showing 10 most recent visits out | | | of 16 in the past 12 months Date Facility City State Type Diagnoses | | | or [facility] [place] [facility] [place] | | | [facility] Chief Complaint: EXCESS FLUID Aug 20, [address] [facility] | | | [place] Emergency Dependence on renal dialysis | | | Chronic kidney disease, unspecified Allergy status to | | | other drugs, medicaments and biological substances status | | | Chronic pulmonary edema Other long term care phlebotomist (current) drug therapy | | | Allergy status to narcotic agent status Dyspnea, | | | unspecified Radiographic dye allergy status Aug 13, 2018 | | [facility] [place] [place] [facility] Allergy status to | | | other drugs, medicaments and biological substances status | | | Pleural effusion, not elsewhere classified End stage renal | | | disease Allergy status to narcotic agent status | | | Hyperkalemia Other specified abnormalities of plasma proteins | | | Other long term care phlebotomist (current) drug therapy Radiographic dye | | | allergy status Dependence on renal dialysis Chest pain, | | | unspecified [facility] [place] [facility] | [facility] [place] [facility] | | [facility] Cough Pneumonia Hypoxemia | | | Pleural effusion, not elsewhere classified Fever, unspecified | | | Personal history of other diseases of urinary system July | | | 2018 [facility] [place] Emergency Personal | | | history of nicotine dependence Other specified respiratory | | | disorders Cough Radiographic dye allergy status | | | Allergy status to narcotic agent status Chronic kidney disease, | | | unspecified Allergy status to other drugs, medicaments and | | | biological substances status Jun 19, [address] [facility] [place] | | | [place] Emergency Other chest pain End stage renal | | | disease Dependence on renal dialysis Personal history of | | | nicotine dependence Fluid overload, unspecified Heart | | | failure, unspecified residential (current) use of opiate | | | analgesic Allergy status to other drugs, medicaments and | | | biological substances status Radiographic dye allergy status | | | Other long term care phlebotomist (current) drug therapy Jun 12, 2018 [facility] | | | [place] Emergency Shortness of breath | | | Fluid overload, unspecified Hyperkalemia Radiographic | | | dye allergy status Allergy status to narcotic agent status | | | Other [place] [facility] (current) drug therapy Allergy status to | | | other drugs, medicaments and biological substances status | | | Unspecified asthma, uncomplicated Dependence on renal dialysis | | | Chronic kidney disease, unspecified Jun 11, [address] [facility] [address] | | | [place] Emergency Chronic pulmonary edema | | | Shortness of breath Radiographic dye allergy status | | | Personal history of nicotine dependence Other long term care phlebotomist | | | (current) drug therapy residential (current) use of opiate | | | analgesic Recent Inpatient Visit Summary Date Facility | | | City State Type Diagnoses or Chief Complaint Aug 20, 2018 [facility] | | | [facility] General Medicine Pleural Effusion | | | Chronic pulmonary edema July 18, 2018 [facility] | | | [facility] General Medicine Hypoxemia Personal history | | | of other diseases of urinary system Fever, unspecified | | | Pleural effusion, not elsewhere classified End stage renal | | | disease Dependence on renal dialysis Anemia in chronic | | | kidney disease Pulmonary hypertension, unspecified | | | Chronic right heart failure May 26, 2018 [facility] | | | [facility] General Medicine Acute respiratory distress | | | Chest pain, unspecified Pleural effusion, not elsewhere | | | classified Other ascites Dependence on renal dialysis | | | Hyperkalemia Other disorders of phosphorus metabolism | | | End stage renal disease Other specified personal risk | | | factors, not elsewhere classified Acute systolic (congestive) | | | heart failure Care Team Provider PRC Type Phone Fax | | | Service Dates TIEN NICHOLSON MD Internal Medicine May 28, | | | 2019 - Current [facility] Portal This patient has registered | | | at the [facility] Emergency Department For more | | | information visit: | | | [email or web address] | | | [email or web address] PLEASE NOTE: 1. Any care recommendations and other | | | clinical information are provided as guidelines or for historical | | | purposes only, and providers should exercise their own clinical | | | judgment when providing care. 2. You may only use this | | | information for purposes of treatment, payment or health care | | | operations activities, and subject to the limitations of applicable | | | Collective Policies. 3. You should consult directly with the | | | organization that provided a care guideline or other clinical history | | | with any questions about additional information or accuracy or | | | completeness of information provided. 2019 [employer] | | | [employer]. - [email or web address] | | + + + + + | Procedure Note | + + | Interface, Lab - 10/17/2018 1:12 AM PDT Formatting of this note may be different | | from the original.[id number] [id number] [facility] Care Guidelines 10 in | | 12 2 in 2Security and SafetyNo recent Security Events currently on fileED Care | | GuidelinesThere are currently no ED Care Guidelines for this patient. Please check your | | facility's medical records system.Care HistoryMedical/Surgical05/28/18 12:00 AM [facility] | | [facility] PATIENT HAS AN APT WITH PCP DR NICHOLSON ON 09/11/18. PATIENT | | JEWEL SUPERVISOR- DR [phone] Patient is currently established with | [facility]. If patient is seen in the ED during business hours. Please contact CHWs | | at [facility].Care Recommendation:This patient has had 5 or more Emergency | | Department visits in the last 12 months.Patient requires education on the scope and | | purpose of the ED as an acute care provider not a Primary Care Provider and should not | | be utilized for chronic conditions.These are guidelines and the provider should exercise | | clinical judgment when providing care.Prescription Drug Report (12 Mo.)PDMP query found | | no report.E.D. Visit Count (12 mo.)Facility Visits Low Acuity [facility] | | Center 4 0 [facility] 12 0 Total 16 0 Note: Visits indicate total known | | visits. Medicaid Low Acuity Dx are the number of primary diagnoses on the Medicaid's Low | | Acuity dx list. Recent Emergency Department Visit SummaryShowing 10 most recent visits | | out of 16 in the past 12 monthsDate Facility City State Type Diagnoses or Chief | | [facility] Emergency Oct 16, 2018 [facility] | | [place] Emergency Chief Complaint: EXCESS FLUID Aug 20, 2018 [facility]. | | [place] Emergency Dependence on renal dialysis Chronic kidney | | disease, unspecified Allergy status to other drugs, medicaments and biological | | substances status Chronic pulmonary edema Other [place] [facility] (current) drug therapy | | Allergy status to narcotic agent status Dyspnea, unspecified Radiographic dye | | allergy status Aug 13, 2018 [facility] [place] [place] [facility] Allergy status to | | other drugs, medicaments and biological substances status Pleural effusion, not | | elsewhere classified End stage renal disease Allergy status to narcotic agent | | status Hyperkalemia Other specified abnormalities of plasma proteins Other long | | term (current) 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 Radiographic dye allergy status Dependence on renal | | dialysis Chest pain, unspecified Aug 13, 2018 [facility] | | Emergency July 18, 2018 [facility] Emergency Cough Pneumonia | | Hypoxemia Pleural effusion, not elsewhere classified Fever, unspecified | | Personal history of other diseases of urinary system July 18, [address] [facility] [address] [place] | | [place] Emergency Personal history of nicotine dependence Other specified | | respiratory disorders Cough Radiographic dye allergy status Allergy status to | | narcotic agent status Chronic kidney disease, unspecified Allergy status to other | | drugs, medicaments and biological substances status Jun 19, 2018 [facility] | | [place] Emergency Other chest pain End stage renal disease Dependence on | | renal dialysis Personal history of nicotine dependence Fluid overload, unspecified | | Heart failure, unspecified oysterman (current) use of opiate analgesic Allergy | | status to other drugs, medicaments and biological substances status Radiographic dye | | allergy status Other long term care phlebotomist (current) drug therapy Jun 12, 2018 [facility] | | [place] Emergency Shortness of breath Fluid overload, unspecified | | Hyperkalemia Radiographic dye allergy status Allergy status to narcotic agent | | status Other long term care phlebotomist (current) drug therapy Allergy status to other drugs, | | medicaments and biological substances status Unspecified asthma, uncomplicated | | Dependence on renal dialysis Chronic kidney disease, unspecified Jun 11, [address] | | [place] Emergency Chronic pulmonary edema Shortness of breath | | Radiographic dye allergy status Personal history of nicotine dependence Other long | | term (current) 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 residential (current) use of opiate analgesic Recent | | Inpatient Visit SummaryDate Facility City State Type Diagnoses or Chief Complaint Aug | | 2018 [facility] Pleural Effusion Chronic | | pulmonary edema July 18[facility] | | Hypoxemia Personal history of other diseases of urinary system Fever, unspecified | | Pleural effusion, not elsewhere classified End stage renal disease Dependence | | on renal dialysis Anemia in chronic kidney disease Pulmonary hypertension, | | unspecified Chronic right heart failure May 26, 2018 [facility] | | General Medicine Acute respiratory distress Chest pain, unspecified Pleural | | effusion, not elsewhere classified Other ascites Dependence on renal dialysis | | Hyperkalemia Other disorders of phosphorus metabolism End stage renal disease | | Other specified personal risk factors, not elsewhere classified Acute systolic | | (congestive) heart failure Care TeamProvider [facility] Type Phone Fax Service Dates BHARAT, | | TIEN Gallagher MD Internal Medicine May 28, 2018 - Current Collective PortalThis patient | | has registered at the [facility] Emergency Department For more | | information visit: | | [id number] PLEASE | | NOTE: 1. Any care recommendations and other clinical information are provided as | | guidelines or for historical purposes only, and providers should exercise their own | | clinical judgment when providing care. 2. You may only use this information for | | purposes of treatment, payment or health care operations activities, and subject to the | | limitations of applicable Collective Policies. 3. You should consult directly with | | the organization that provided a care guideline or other clinical history with any | | questions about additional information or accuracy or completeness of information | | provided.2019 [employer] - wwwjudo | | Personal history of other diseases of urinary system | | | |July 18, 2018 [facility] [facility] [place] [place] Emergency | | Personal history of nicotine dependence | | Other specified respiratory disorders | | Cough | | Radiographic dye allergy status | | Allergy status to narcotic agent status | | Chronic kidney disease, unspecified | | Allergy status to other drugs, medicaments and biological substances status | | | |Jun 19, 2018 [facility] [facility] [place] Emergency | | Other chest pain | | End stage renal disease | | Dependence on renal dialysis | | Personal history of nicotine dependence | | Fluid overload, unspecified | | Heart failure, unspecified | | oysterman (current) use of opiate analgesic | | Allergy status to other drugs, medicaments and biological substances status | | Radiographic dye allergy status | | Other long term care phlebotomist (current) drug therapy | | | |Jun 12, 2018 [facility] [place] [facility] Emergency | | Shortness of breath | | Fluid overload, unspecified | | Hyperkalemia | | Radiographic dye allergy status | | Allergy status to narcotic agent status | | Other long term care phlebotomist (current) drug therapy | | Allergy status to other drugs, medicaments and biological substances status | | Unspecified asthma, uncomplicated | | Dependence on renal dialysis | | Chronic kidney disease, unspecified | | | |Jun 11, 2018 [facility] [place] [facility] Emergency | | Chronic pulmonary edema | | Shortness of breath | | Radiographic dye allergy status | | Personal history of nicotine dependence | | Other [place] [facility] (current) drug therapy | | residential (current) use of opiate analgesic | | | | | | | |Recent Inpatient Visit Summary | |Date Facility City State Type Diagnoses or Chief Complaint | |Aug 20, 2018 [facility] General Medicine | | Pleural Effusion | | Chronic pulmonary edema | | | |July 18, 2018 [facility] General Medicine | | Hypoxemia | | Personal history of other diseases of urinary system | | Fever, unspecified | | Pleural effusion, not elsewhere classified | | End stage renal disease | | Dependence on renal dialysis | | Anemia in chronic kidney disease | | Pulmonary hypertension, unspecified | | Chronic right heart failure | | | |May 26, 2018 [facility] General Medicine | | Acute respiratory distress | | Chest pain, unspecified | | Pleural effusion, not elsewhere classified | | Other ascites | | Dependence on renal dialysis | | Hyperkalemia | | Other disorders of phosphorus metabolism | | End stage renal disease | | Other specified personal risk factors, not elsewhere classified | | Acute systolic (congestive) heart failure | | | | | | | |Care Team | |Provider PRC Type Phone Fax Service Dates | |TIEN NICHOLSON MD Internal Medicine May 28, 2018 - Current | | | |[facility] Portal | |This patient has registered at the [facility] Emergency Department | |For more information visit: [id number] | |PLEASE NOTE: | | 1. Any care recommendations and other clinical information are provided as guidelines or for historical purposes only, and providers should exercise their own clinical judgment whe n providing care. | | 2. You may only use this information for purposes of treatment, payment or health care o perations activities, and subject to the limitations of applicable Collective Policies. | | 3. You should consult directly with the organization that provided a care guideline or o ther clinical history with any questions about additional information or accuracy or complet eness of information provided. | | | |2019 [employer]. - [email or web address] | + + + +---------+ + + | Performing | Address | City/State/Zipcode | Phone Number | | Organization | | | | + +---------+ + + | ED INFORMATION | | | | | EXCHANGE | | | | + +---------+ + + in this encounter Visit Diagnoses + + | Diagnosis | + + | Non-cardiogenic pulmonary edema - Primary | + + | Pulmonary congestion and hypostasis | + + | SOB (shortness of breath) | + + | Shortness of breath | + + | Pleural effusion on right | + + | Unspecified pleural effusion | + + | ESRD needing dialysis (HCC) | + + | End stage renal disease | + + | End stage renal disease (HCC) | + + | End stage renal disease | + + | Chronic 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) | + + | Chronic combined systolic and diastolic heart failure | + + | HSP (Henoch Schonlein purpura) | + + | Allergic purpura | + + | Hyperkalemia | + + | Hyperpotassemia | + + | Non-compliance | + + | Personal history of noncompliance with medical treatment, presenting hazards to health | + + | Moderate to severe pulmonary hypertension (HCC) | + + | Other chronic pulmonary heart diseases | + + | Dyspnea | + + | Other dyspnea and respiratory abnormality | + + | Medically noncompliant | + + | Personal history of noncompliance with medical treatment, presenting hazards to health | + + | Hypervolemia | + + | Other fluid overload | + + | Acidosis | + + Admitting Diagnoses + + | Diagnosis | + + | End stage renal disease (HCC) | + + | End stage renal disease | + + | SOB (shortness of breath) | + + | Shortness of breath | + + | Pleural effusion on right | + + | Unspecified pleural effusion | + + | ESRD needing dialysis (HCC) | + + | End stage renal disease | + + Administered Medications + +--------+---------+------+------+------+ | Medication Order | MAR | Action | Dose | Rate | Site | | | Action | Date | | | | + +--------+---------+------+------+------+ + +---+ | acetaminophen (TYLENOL) | | | suppository 650 mg 650 mg, | | | Rectal, Every 6 Hours PRN, Mild | | | Pain (1-3), Fever, Starting Wed | | | 10/17/18 at 0653 | | + +---+ | | | + +---+ + +-------+ +--------+---+---+ | acetaminophen (TYLENOL) tablet | Given | | 650 mg | | | | 650 mg 650 mg, Oral, Every 6 | | 9 09:42 | | | | | Hours PRN, Mild Pain (1-3), | | PDT | | | | | Fever, Starting Mon10/17/18 at | | | | | | | 0653 | | | | | | + +-------+ +--------+---+---+ +-------+ +--------+---+---+ | Given | | 650 mg | | | | | 9 16:27 | | | | | | PDT | | | | +-------+ +--------+---+---+ +---+---+ | | | +---+---+ + +-------+ +-------+---+---+ | clopidogrel (PLAVIX) tablet 75 | Given | | 75 mg | | | | mg 75 mg, Oral, Daily, First | | 9 16:17 | | | | | dose on Mon10/17/18 at 0900 | | PDT | | | | + +-------+ +-------+---+---+ +-------+ +-------+---+---+ | Given | | 75 mg | | | | | 9 08:31 | | | | | | PDT | | | | +-------+ +-------+---+---+ | Given | | 75 mg | | | | | 9 10:17 | | | | | | PDT | | | | +-------+ +-------+---+---+ +---+---+ | | | +---+---+ + +-------+ +-------+---+---+ | hydrALAZINE (APRESOLINE) | Given | | 20 mg | | | | injection 20 mg 20 mg, | | 9 04:37 | | | | | Intravenous, Once, 10/17/18 at | | PDT | | | | | 0432, For 1 dose | | | | | | + +-------+ +-------+---+---+ +---+---+ | | | +---+---+ + +-------+ +--------+---+---+ | HYDROmorphone (DILAUDID) | Given | | 0.5 mg | | | | injection 0.5 mg 0.5 mg, | | 9 11:13 | | | | | Intravenous, Every 4 Hours PRN, | | PDT | | | | | Moderate Pain (4-6), Starting Wed | | | | | | | 10/17/18 at 0936 | | | | | | + +-------+ +--------+---+---+ +-------+ +--------+---+---+ | Given | | 0.5 mg | | | | | 9 16:03 | | | | | | PDT | | | | +-------+ +--------+---+---+ | Given | | 0.5 mg | | | | | 9 20:22 | | | | | | PDT | | | | +-------+ +--------+---+---+ +---+---+ | | | +---+---+ + +-------+ +------+---+---+ | LORazepam (ATIVAN) injection 1 | Given | | 1 mg | | | | mg 1 mg, Intravenous, Once, Mon | | 9 05:25 | | | | | 10/17/18 at 0516, For 1 dose | | PDT | | | | + +-------+ +------+---+---+ +---+---+ | | | +---+---+ + +-------+ +-------+---+---+ | metoprolol (TOPROL-XL) 24 hr | Given | | 50 mg | | | | tablet 50 mg 50 mg, Oral, | | 9 20:37 | | | | | Nightly, First dose on Mon | | PDT | | | | | 10/17/18 at 2200 | | | | | | + +-------+ +-------+---+---+ +-------+ +-------+---+---+ | Given | | 50 mg | | | | | 9 22:03 | | | | | | PDT | | | | +-------+ +-------+---+---+ | Given | | 50 mg | | | | | 9 20:22 | | | | | | PDT | | | | +-------+ +-------+---+---+ +---+---+ | | | +---+---+ + +-------+ +------+---+---+ | ondansetron (ZOFRAN) injection | Given | | 4 mg | | | | 4 mg 4 mg, Intravenous, Every 6 | | 9 16:33 | | | | | Hours PRN, Nausea, Vomiting, | | PDT | | | | | Starting 10/17/18 at 0653 | | | | | | + +-------+ +------+---+---+ +-------+ +------+---+---+ | Given | | 4 mg | | | | | 9 00:31 | | | | | | PDT | | | | +-------+ +------+---+---+ | Given | | 4 mg | | | | | 9 22:30 | | | | | | PDT | | | | +-------+ +------+---+---+ + +---+ | | | + +---+ | ondansetron (ZOFRAN-ODT) | | | disintegrating tablet 4 mg 4 mg, | | | Oral, Every 6 Hours PRN, Nausea, | | | Vomiting, Starting Mon10/17/18 | | | at 0653 | | + +---+ | | | + +---+ + +-------+ +-------+---+---+ | pantoprazole (PROTONIX) EC | Given | | 40 mg | | | | tablet 40 mg 40 mg, Oral, Every | | 9 07:06 | | | | | Morning Before Breakfast, First | | PDT | | | | | dose on Mon10/17/18 at 0730 | | | | | | + +-------+ +-------+---+---+ +-------+ +-------+---+---+ | Given | | 40 mg | | | | | 9 06:00 | | | | | | PDT | | | | +-------+ +-------+---+---+ | Given | | 40 mg | | | | | 9 06:11 | | | | | | PDT | | | | +-------+ +-------+---+---+ +---+---+ | | | +---+---+ + +-------+ +-------+---+---+ | promethazine (PHENERGAN) tablet | Given | | 25 mg | | | | 25 mg 25 mg, Oral, Every 6 | | 9 07:16 | | | | | Hours PRN, Nausea, Vomiting, | | PDT | | | | | non-resposive to giovanni, Starting | | | | | | | 10/17/18 at 0653 | | | | | | + +-------+ +-------+---+---+ +-------+ +-------+---+---+ | Given | | 25 mg | | | | | 9 15:20 | | | | | | PDT | | | | +-------+ +-------+---+---+ | Given | | 25 mg | | | | | 9 21:33 | | | | | | PDT | | | | +-------+ +-------+---+---+ +---+---+ | | | +---+---+ + +-------+ + +---+---+ | sevelamer (RENVELA) tablet | Given | | 2,400 mg | | | | 2,400 mg 2,400 mg, Oral, 3 Times | | 9 07:00 | | | | | Daily With Meals, First dose on | | PDT | | | | | 10/17/18 at 0800 | | | | | | + +-------+ + +---+---+ +-------+ + +---+---+ | Given | | 2,400 mg | | | | | 9 12:41 | | | | | | PDT | | | | +-------+ + +---+---+ | Given | | 2,400 mg | | | | | 9 16:00 | | | | | | PDT | | | | +-------+ + +---+---+ + +---+ | | | + +---+ | sodium chloride (bolus) 0.9 % | | | 200 mL 200 mL, Intravenous, | | | Every 15 Min PRN, Prevent | | | clotting, Starting Mon10/17/18 at | | | 0957 | | + +---+ | | | + +---+ + +-------+ +-------+---+---+ | valsartan (DIOVAN) tablet 80 mg | Given | | 80 mg | | | | 80 mg, Oral, Daily, First dose | | 9 16:16 | | | | | on Mon10/17/18 at 0900 | | PDT | | | | + +-------+ +-------+---+---+ +-------+ +-------+---+---+ | Given | | 80 mg | | | | | 9 15:20 | | | | | | PDT | | | | +-------+ +-------+---+---+ | Given | | 80 mg | | | | | 9 11:13 | | | | | | PDT | | | | +-------+ +-------+---+---+ +---+---+ | | | +---+---+ in this encounter
--- OUTSIDE RECORDS SUMMARY | ~2019-01-06 | XMS | Encounter Summary ---
Demographics + + + | Address | [address] | | | [place] [address] | + + + | Home Phone | | + + + | Preferred Language | Unknown | + + + | Marital Status | Single | + + + | Catholic Affiliation | Unknown | + + [...] | | | | | [place] [address] | | + + + + + | Deidra Weldon | ECON | [address] | | | | | [place] | | | | | [address] | | + + + + + Care Team Providers + +------+ + | Care Elephant Tamer Name | Role | Phone | + +------+ + | No Pcp Per Patient | PCP | Unavailable | + +------+ + Encounter Details +--------+ + + + + | Date | Type | Department | Care Team | Description | +--------+ + + + + | 09/02/ | Documentati | Transplant | Kelsi Martinez, | | | 2013 | on | Coordinators [phone] | RN [address] | | | | | [address] [facility] | [facility] | | | | | Rd [place], [place] | [place], [place] | | | | | [address] | [address] | | | | | [phone] | | | +--------+ + + + [...] Denise | | | | | | [place], [place] | | | | | | [address] | | | | | | [phone] | | | | | | | | +--------+ + + + + documented as of this encounter Visit Diagnoses Not on filedocumented in this encounter"
--- OUTSIDE RECORDS SUMMARY | ~2019-01-06 | XMS | Encounter Summary ---
Demographics + + + | Address | [address] | | | [place] [address] | + + + | Home Phone | | + + + | Preferred Language | Unknown | + + + | Marital Status | Single | + + + | Scientologist Affiliation | Unknown | + + + | Race | White | + + + | Ethnic Group | Not or | + + + Author + + + | Author | [facility] | + + + | Organization | [facility] | + + + | Address | Unknown | + + + | Phone | Unavailable | + + + Support + + + + + | Name | Relationship | Address | Phone | + + + + + | Cory Weldon | ECON | [address] | | | | | [place] [address] | | + + + + + | Thania Mallory | ECON | [address] | | | | | [place] [address] | | + + + + + | Deidra Weldon | ECON | [address] | | | | | [place] | | | | | [address] | | + + + + + Care Team Providers + +------+ + | Care Drying Machine Receiver Name | Role | Phone | + [...] + + | 10/24/ | Documentati | Transplant | Kelsi Martinez, | Referral To | | 2012 | on | Coordinators [phone] | RN [address] | Transplant - Renal | | | | [address] [facility] | [facility] | | | | | Rd [place], [place] | [place], [place] | | | | | [address] | [address] | | | | | [phone] | | | +--------+ + + + [...] | 2022 | Encounter | | [address] | | | | | | [place], [place] | | | | | | [address] | | | | | | [phone] | | | | | | | [...]
--- OUTSIDE RECORDS SUMMARY | ~2019-01-06 | XMS | Encounter Summary ---
Demographics + + + | Address | [address] | | | [place] [address] | + + + | Home Phone [...] | | | | | [place] [address] | | + + + + + | Thania Mallory | ECON | [address] | | | | | [place] [address] | | + + + + + | Deidra Weldon | ECON | [address] | | | | | [place] | | | | | [address] | | + + + + + Care Team Providers + +------+ + | Care Welcome Hostess Name | Role | Phone | + +------+ + | Shahid Camargo MD | PCP | | + +------+ + Encounter Details +--------+ + + + + | Date | Type | Department | Care Team | Description | +--------+ + + + + | 12/20/ | Hospital | Radiology at [facility] | | | | 2012 | Encounter | [address] | | | | | | Caro Chan Mailcode: | | | | | | [address] | | | | | | [place], [place] | | | | | | [address] | | | | | | [phone] | | | +--------+ + + + [...] Denise | | | | | | [place], [place] | | | | | | [address] | | | | | | [phone] | | | | | | | [...] | e | 9:29 AM | MEDICARE [phone] | procedure are in the | | [...] | | | | | standards of [place] | | | | | | Gilberto. 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
--- OUTSIDE RECORDS SUMMARY | ~2019-01-06 | XMS | Encounter Summary ---
Demographics + + + | Address | [address] | | | [place] [address] | + + + | Home Phone [...] | | | | | [place] [address] | | + + + + + | Thania Mallory | ECON | [address] | | | | | [place] [address] | | + + + + + | Deidra Weldon | ECON | [address] | | | | | [place] | | | | | [address] | | + + + + + Care Team Providers + +------+ + | Care Performance Improvement Director Name | Role | Phone | + +------+ + | Jonathan Alonso MD | PCP | | + +------+ + Reason for Visit + + + | Reason | Comments | + + + | Transplant Status | Close referral | | Change | | + + + Encounter Details +--------+ + + + + | Date | Type | Department | Care Team | Description | +--------+ + + + + | 07/06/ | Telephone | Transplant | Kelsi Martinez, | Transplant Status | | 2016 | | Coordinators [address] | RN [address] | Change (Close | | | | [address] [facility] | [facility] | referral) | | | | Rd [place], [place] | [facility] [place] | | | | | [address] | [address] | | | | | [phone] | | | +--------+ + + + [...] [facility] | | | | | | [address] | | | | | | [phone] | | | | | | | | +--------+ + + + + documented as of this encounter Visit Diagnoses Not on filedocumented in this encounter"
--- OUTSIDE RECORDS SUMMARY | ~2019-01-06 | XMS | Encounter Summary ---
Demographics + + + | Address | [address] | | | [place] [address] | + + + | Home Phone [...] | | | | | [place] [address] | | + + + + + | Thania Mallory | ECON | [address] | | | | | [place] [address] | | + + + + + | Deidra Wledon | ECON | [address] | | | | | [place] | | | | | [address] | | + + + + + Care Team Providers + +------+ + | Care Film Booker Name | Role | Phone | + +------+ + | Jonathan Alonso MD | PCP | | + +------+ + Reason for Visit + + + | Reason | Comments | + + + | Echo Imaging Note | | + + + Encounter Details +--------+ + + + + | Date | Type | Department | Care Team | Description | +--------+ + + + + | 01/20/ | Results/Int | Pediatric | Daniela Souza, | End-stage renal | | 2015 | erpretation | Cardiology at | MD [address] | disease (HCC) | | | | [place] | [address] | (Primary Dx) | | | | [facility] | [place], [place] | | | | | [address] | [address] | | | | | [address] Mailcode: | [phone] | | | | | [address] | | | | | | [place], [place] | | | | | | [address] | | | | | | [phone] | | | +--------+ + + + [...] Denise | | | | | | [place], [place] | | | | | | [address] | | | | | | [phone] | | | | | | | [...] | e | 1:18 PM | MEDICARE 7381 HSP | procedure are in the | | | | PST | (Henoch-Schonlein | results section. | | |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 | | | | | | Hemodialysis status | | | | | | ([facility]) Chronic | | | | | | kidney disease, | | | | | | stage V ([facility]) | | + +--------+ + + + documented in this encounter Visit Diagnoses + + | Diagnosis | + + | End-stage renal disease (HCC) - Primary End stage renal disease | + + documented in this encounter"
--- OUTSIDE RECORDS SUMMARY | ~2019-01-06 | XMS | Clinical Summary ---
Demographics + + + | Address | [address] | | | [place] [address] | + + + | Home Phone | | + + + | Preferred Language | Unknown | + + + | Marital Status | Single | + + + | Baptism Affiliation | Unknown | + + + | Race | Unknown | + + + | Ethnic Group | Unknown | + + + Author + + + | Author | [facility] (Historical as of | | | 10-20-18) | + + + | Organization | [facility] (Historical as of | | | 10-20-18) [...] Team Providers + +------+ + | Care System Programmer Name | Role | Phone | + [...] René Hinson MD | Other (September | | 2018 | on Only | | | 2019-Fina Provider | | | | | | [...] | Left: | SYNOVIS | | | [id number] | | 0.8x8cm - [id number]: | | Arm | | | | [...] Lot | + +------+------+ +--------+--------+--------+ | 14.5 Fr/ (4.8) X | | | COVIDIEN | | | [id number] | | 23cmExplanted: Qty: 1 on | | | | | | [id number] / | | 04/08/2014 | | | | | | | | | | | | | | /[id number] | | | | | | | [...] + | BUN/CREAT | 4 | | [facility] | | | | | LABORATORY | + + + + + | CALCIUM | 9.2 | 8.5 - 10.5 mg/dL | [facility] | | | | | LABORATORY | + + + + + | EGFR | 7 (L)Comment: GFR <60: | >60 mL/min/1.73m2 | [facility] | | | CHRONIC KIDNEY DISEASE, | [...] the | | | | | MDRD IDLA traceable | | | | | equation.Testing | | | | | performed at [facility], [address] | | | | | [facility], | | | | | [place] [address] | | | + + + + + + + | Specimen | + + | Blood | + + + + + + + | Performing | Address | City/State/Zipcode | Phone Number | | Organization | | | | + + + + + | [facility] | [address] | [place] [address] | [phone] | | LABORATORY | [address]. | | [...] OR EXPIRATION ONLY CLINICAL INFORMATION: Post | [facility] | | thoracentesis. COMPARISON: US THORACENTESIS WITH IMAGING GUIDANCE | RADIOLOGY | | (10/18/2018); XR CHEST 1 VIEW (10/17/2018); CHEST TWO VIEWS [id number] | | | (10/17/2018); FINDINGS: Compared to [...] VIEW | | (10/17/2018); CHEST TWO VIEWS [id number] (10/17/2018); | | FINDINGS: | | Compared [...] | + + + + + | [facility] | [address] | [place] [address] | | + + + + + [...] pleural space is punctured with an 5 Solomon Islander Caustic Graphicsesis | | | catheter. Fluid is aspirated [...] pleural space is punctured with an 5 [place] Islander Yueh | | centesis catheter. Fluid is [...] | + + + + + | [facility] | [address] | [place] [address] | | + + + + + [...] QTC Calculation | 469 | ms | [facility] | | (Kat) | | | | + + + + + | Calculated P Jeddo | 46 | degrees | [facility] | + + + + + | Calculated R Jeddo | 127 | degrees | [facility] | + + + + + | Calculated T Jeddo | 94 | degrees | [facility] | + + + + + | Diagnosis | Normal sinus rhythmRight | | [facility] | | | axis | | [...] | + + + + + | [facility] | [address] | [place] [address] | | + + + + + [...] [address] | | | | | [facility], | | | | | [place] [address] | | | | |Testing performed at [facility], [address] [place] [address] | | | | | | | | + + + + + + + | Specimen | + + | Blood | + + + + + + + | Performing | Address | City/State/Zipcode | Phone Number | | Organization | | | | + + + + + | [facility] | [address] | [place] [address] | [phone] | | LABORATORY | Blvd. | | | + + + + + Magnesium (10/18/2018 5:44 AM) + + + + + | Component | Value | Ref Range | Performed At | + + + + + | MAGNESIUM | 2.4Comment: Testing | 1.7 - 2.4 mg/dL | [facility] | | | performed at [facility], [address] | | LABORATORY | | | [address], | | | | | [place] [address] | | | + + + + + + + | Specimen | + + | Blood | + + + + + + + | Performing | Address | City/State/Zipcode | Phone Number | | Organization | | | | + + + + + | [facility] | [address] | [place] [address] | [phone] | | LABORATORY | Blvd. | | [...] 0.8 | 0.1 - 1.5 mg/dL | [facility] | | | | | LABORATORY | [...] [address] | | | | | [facility], | | | | | [place] [address] | | | + + + + + + + | Specimen | + + | Blood | + + + + + + + | Performing | Address | City/State/Zipcode | Phone Number | | Organization | | | | + + + + + | [facility] | [address] | [place] [address] | [phone] | | LABORATORY | Blvd. | | [...] 0.04 | 0.00 - 0.04 ng/mL | [facility] | | | ng/mL [...] performed at | | | | | [place];[address] [place] [address] | | | | | [facility];[place] [address] | | | + + + + + + + | Specimen | + + | Blood | + + + + + + + | Performing | Address | City/State/Zipcode | Phone Number | | Organization | | | | + + + + + | [facility] | [address] | [place] [address] | | + + + + + CPK (10/17/2018 6:05 PM)Only the most recent of 2 results within the time period is includ ed. + + + + + | Component | Value | Ref Range | Performed At | + + + + + | CPK | 443 (H)Comment: Testing | 30 - 240 U/L | [facility] | | | performed at [place];[address] | | | | [address] | | | | | [address] | | | + + + + + + + | Specimen | + + | Blood | + + + + + + + | Performing | Address | City/State/Zipcode | Phone Number | | Organization | | | | + + + + + | [facility] | [address] | [place] [address] | | + + + + + Protime-INR (10/17/2018 8:10 AM) + + + + + | Component | Value | Ref Range | Performed At | + + + + + | INR | 1.2Comment: REFERENCE | | [facility] | | | RANGE:0.9 [...] | | | | | performed at [place];[address] | | | | | [address] [facility];[place] | | | | | [address] | | | + + + + + + + | Specimen | + + | Blood | + + + + + + + | Performing | Address | City/State/Zipcode | Phone Number | | Organization | | | | + + + + + | [facility] | [address] | [place] [address] | | + + + + + X-ray Chest 1 View (10/17/2018 3:57 AM) + + + | Impressions | Performed At | + + + | Cardiomegaly with pulmonary edema and large right pleural effusion. | [facility] | | Signed by: Eliza Echols, Fely Sign Date/Time: 10/17/2018 4:25 AM | RADIOLOGY [...] [facility] | [address] | [place] [address] | | + + + + + [...] + + + + | Calculated P Jeddo | 33 | degrees | [facility] | + + + + + | Calculated R Jeddo | -22 | degrees | [facility] | + + + + + | Calculated T Jeddo | 92 | degrees | [facility] | + + + + + | Diagnosis | Sinus | | [facility] | | | tachycardiaNonspecific T | [...] | | | | | ONLY, -COMPUTER (500), | | | | | material expeditor Daniela Esquivel | | | | | (18) on 10/17/2018 | | | | | 9:07:21 AM | | | + + + + + + + + + + | Performing | Address | City/State/Zipcode | Phone Number | | Organization | | | | + + + + + | [facility] | [address] | [place] [address] | | + + + + + Cardiac Panel (10/17/2018 3:49 AM) + + + + + | Component | Value | Ref Range | Performed At | + + + + + | WBC | 6.63 | 3.80 - 11.00 K/uL | [facility] | + + + + + | RBC | 3.07 (L) | 3.70 - 5.10 M/uL | [facility] | + + + + + | HGB | 10.9 (L) | 11.3 - 15.5 g/dL | [facility] | + + + + + | HCT | 32.7 (L) | 34.0 - 46.0 % | [facility] | + + + + + | MCV | 106.7 (H) | 80.0 - 100.0 fl | [facility] | + + + + + | MCH | 35.6 (H) | 27.0 - 34.0 pg | [facility] | + + + + + | MCHC | 33.4 | 32.0 - 35.5 g/dL | [facility] | + + + + + | RDW SD | 56.4 (H) | 37 - 53 fl | [facility] | + + + + + | PLT | 158 | 150 - 400 K/uL | [facility] | + + + + + | MPV | 10.2 | fl | [facility] | + + + + + | DIFF TYPE | AUTOMATED | | [facility] | + + + + + | NEUTROPHILS | 70.67 | % | [facility] | + [...] 4.68 | 1.90 - 7.40 K/uL | [facility] [...] (H) | 0.00 - 0.50 K/uL | [facility] | + + + + + | BASOPHILS ABS | 0.08 | 0.00 - 0.10 K/uL | [facility] | + + + + + | MORPHOLOGY | 2+ | | [facility] | | | Comment: | | | | | MACRO | | | | | NORMAL PLT MORPH | | | | | 1+ | | | | | ANISO | | | | | | | | + + + + + | Platelet Estimate | ADEQUATE | | [facility] | + + + + + | SODIUM | 142 | 135 - 145 mmol/L | [facility] | + + + + + | POTASSIUM | 5.5 (H)Comment: SLT | 3.5 - 4.9 mmol/L | [facility] | | | HEMOLYSIS | | | + + + + + | CHLORIDE | 104 | 99 - 109 mmol/L | [facility] | + + + + + | CO2 | 17 (L) | 23 - 32 mmol/L | [facility] | + + + + + | ANION GAP AGAP | 27 (H) | 5 - 20 mmol/L | [facility] | + + + + + | GLUCOSE | 91 | 65 - 99 mg/dL | [facility] [...] + | BUN/CREAT | 6 | | [facility] | + + + + + | CALCIUM | 8.9 | 8.5 - 10.5 mg/dL | [facility] | + + + + + | TOTAL PROTEIN | 6.5 | 6.3 - 8.2 g/dL | [facility] | + + + + + | Albumin | 4.0 | 3.6 - 5.0 g/dL | [facility] | + + + + + | GLOBULIN | 2.5 | 1.3 - 4.9 g/dL | [facility] | + + + + + | A/G | 1.6 | 1.0 - 2.4 | [facility] | + + + + + | TBIL | 0.6 | 0.1 - 1.5 mg/dL | [facility] | + + + + + | ALK PHOS | 85 | 35 - 115 U/L | [facility] | + + + + + | AST | 40 | 10 - 45 U/L | [facility] | + + + + + | ALT | 31 | 10 - 65 U/L | [facility] | + + + + + | EGFR | 3 (L)Comment: GFR <60: | >60 mL/min/1.73m2 | [facility] | | | CHRONIC [...] SLT | 30 - 240 U/L | [facility] | | | HEMOLYSIS | | | + + + + + | INR | 1.2Comment: REFERENCE | | [facility] | | | RANGE:0.9 [...] 23 | 23 - 32 seconds | [facility] | + + + + + | MMB | 17.8 (H) | 0.5 - 3.6 ng/mL | [facility] | + + + + + | CK-MB Index | UNABLE TO | | [facility] | | | CALCULATEComment: | | | | | Testing performed at | | | | | [place];[address] | | | | [address];[place] [address] | | | + + + + + + + + + + | Performing | Address | City/State/Zipcode | Phone Number | | Organization | | | | + + + + + | [facility] | [address] | [place] [address] | | + + + + + Brain natriuretic peptide (10/17/2018 3:49 AM) + + + + + | Component | Value | Ref Range | Performed At | + + + + + | BRAIN NATRIURETIC | 1,151.26 (H)Comment: | 0 - 100 pg/mL | [facility] | | PEPTIDE | Testing performed at | | | | | [place];[address] [place] [address] | | | | | [facility];[place] [address] | | | + + + + + + + + + + | Performing | Address | City/State/Zipcode | Phone Number | | Organization | | | | + + + + + | [facility] | [address] | [place] [address] | | + + + + + ED INFORMATION EXCHANGE (10/17/2018 1:10 AM) + + + | Narrative | Performed At | + + + | [id number] [id number] Criteria Met Care | ED | | Guidelines in 2 in 2 Security and Safety No | INFORMATION | | recent Security Events currently on file ED Care Guidelines There | EXCHANGE | | are currently no ED Care Guidelines for this patient. Please check | | | your facility's medical records system. Care History | | | Medical/Surgical 05/28/18 12:00 AM [facility] | | | PATIENT HAS AN APT WITH PCP DR NICHOLSON ON 09/11/18. 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 If patient is seen in | | | the ED during business hours. Please contact CHWs at [facility] | | | Clinic. Care Recommendation: This [...] | | mo.) Facility Visits [facility] 4 0 | | | [facility] 12 0 Total 16 0 Note: Visits [...] | or Chief Complaint Oct 17, 2018 [facility] Reji [place]. [place] | | | [facility] [place] [place] | | | Emergency Chief Complaint: EXCESS FLUID Aug 20, 2018 [facility]. | | | [place] H. [place]. 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 [place] 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 [place] [facility] Personal | | | history of nicotine dependence Other specified respiratory | | | disorders Cough Radiographic dye allergy status | | | Allergy status to narcotic agent status Chronic kidney disease, | | | unspecified Allergy status to other drugs, medicaments and | | | biological substances status Jun 19, [address] [facility] [address] [place] Mckeon. | | | [place]. 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 | | | 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 [place] General Medicine Pleural Effusion | | | Chronic pulmonary edema July 18, 2018 [facility] | | | [facility]. [place] General Medicine Hypoxemia Personal history | | | of other diseases of urinary system Fever, unspecified | | | Pleural effusion, not elsewhere classified End stage renal | | | disease Dependence on renal dialysis Anemia in chronic | | | kidney disease Pulmonary hypertension, unspecified | | | Chronic right heart failure May 26, 2018 [facility] | | | [facility] General Medicine Acute respiratory distress | | [...] 28, | | | 2019 - Current [employer] Portal This patient has registered | | | at the [facility] Emergency Department For more | | | information visit: | | | [email or web address] | | | [email or web address] PLEASE NOTE: 1. [...] the limitations of applicable | | | [employer] Policies. 3. You should consult directly with the | | | organization that provided a care guideline or other clinical history | | | with any questions about additional information or accuracy or | | | completeness of information provided. 2019 [employer] | | | [employer] - [email or web address] | | + + + + + | Procedure Note | + + | Interface, Lab - 10/17/2018 1:12 AM PDT Formatting of this note may be different | | from the original.[id number] [id number] [facility] Care Guidelines 10 in | | 12 2 in 2Security and SafetyNo recent Security Events currently on fileED Care | | GuidelinesThere are currently no ED Care Guidelines for this patient. Please check your | | facility's medical records system.Care HistoryMedical/Surgical05/28/18 12:00 AM [facility] . | [facility] PATIENT HAS AN APT WITH PCP DR NICHOLSON ON 09/11/18. PATIENT | | [employer] SALES REPRESENTATIVE- DR [phone] Patient is currently established with | [facility]. If patient is seen in the ED during business hours. Please contact CHWs | | at [facility].Care Recommendation:This patient has had 5 or more [...] Visit Count (12 mo.)Facility Visits [facility] | | Center [address] [facility] 12 0 Total 16 0 Note: Visits [...] Chief | | Complaint Oct 17, 2018 [facility] Emergency Oct 16, 2018 [facility] . | | [place]even Mckeon. [place] Emergency Chief Complaint: EXCESS FLUID Aug 20, 2018 [facility] . | | [place]. [place] Emergency Dependence on renal dialysis Chronic kidney | | disease, unspecified Allergy status to other drugs, medicaments and biological | | substances status Chronic pulmonary edema Other correction (current) drug therapy | | Allergy status to narcotic agent status Dyspnea, unspecified Radiographic dye | | allergy status Aug 13, [address] [facility] [address] [place] Emergency Allergy status to | [...] dialysis Chest pain, unspecified Aug 13, 2018 [facility] | | Emergency [facility] Cough Pneumonia | | Hypoxemia Pleural effusion, not elsewhere classified Fever, unspecified | | Personal history of other diseases of urinary system July 18, [address] [facility] [address] [place] | | [place] Emergency Personal history of nicotine dependence Other specified | | respiratory disorders Cough Radiographic dye allergy status Allergy status to | | narcotic agent status Chronic kidney disease, unspecified Allergy status to other | | drugs, medicaments and biological substances status Jun 19, 2018 [facility] | | 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 | | 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 General Medicine | | Hypoxemia Personal history of other diseases of urinary system Fever, unspecified | | Pleural effusion, not elsewhere classified End stage renal disease Dependence | | on renal dialysis Anemia in chronic kidney disease Pulmonary hypertension, | | unspecified Chronic right heart failure May 26, 2018 [facility] | | General Medicine Acute respiratory distress Chest pain, unspecified Pleural | | effusion, not elsewhere classified Other ascites Dependence on renal dialysis | | Hyperkalemia Other disorders of phosphorus metabolism End stage renal disease | | Other specified personal risk factors, not elsewhere classified Acute systolic | | (congestive) heart failure Care TeamProvider [facility] Type Phone Fax Service Dates BHARAT, | | TIEN Gallagher MD Internal Medicine May 28, 2018 - Current Collective PortalThis patient | | has registered at the [facility] Emergency Department For more | | information visit: | | [email or web address] PLEASE | | NOTE: 1. Any care [...] or completeness of information | | provided.2019 [email or web address] - [email or web address] | | Personal history of other diseases of urinary system | | | |July 18, 2018 [facility] [place] Emergency | | Personal history of nicotine dependence | | Other specified respiratory disorders | | Cough | | Radiographic dye allergy status | | Allergy status to narcotic agent status | | Chronic kidney disease, unspecified | | Allergy status to other drugs, medicaments and biological substances status | | | |Jun 19, 2018 [facility] [place] 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 | | snf (current) use of opiate analgesic | | | | | | | |Recent Inpatient Visit Summary | |Date Facility City State Type Diagnoses or Chief Complaint | |Aug 20, 2018 [facility] General Medicine | | Pleural Effusion | | Chronic pulmonary edema | | | |July 18, 2018 [facility] | | Hypoxemia | | Personal history of other diseases of urinary system | | Fever, unspecified | | Pleural effusion, not elsewhere classified | | End stage renal disease | | Dependence on renal dialysis | | Anemia in chronic kidney disease | | Pulmonary hypertension, unspecified | | Chronic right heart failure | | | |May 26, 2018 [facility] | | Acute respiratory [...] 28, 2018 - Current | | | |[employer] Portal | |This patient has registered at the [facility] | |For more information visit: [email or web address] | |PLEASE NOTE: | | 1. Any care recommendations and other clinical information are provided as guidelines or for historical purposes only, and providers should exercise their own clinical judgment whe n providing care. | | 2. You may only use this information for purposes of treatment, payment or health care o perations activities, and subject to the limitations of applicable [employer] Policies. | | 3. You should consult directly with the organization that provided a care guideline or o ther clinical history with any questions about additional information or accuracy or complet eness of information provided. | | | |2019 [employer]. 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
--- OUTSIDE RECORDS SUMMARY | ~2019-01-06 | XMS | Encounter Summary ---
Demographics + + + | Address | [address] | | | [place] [address] | + + + | Home Phone [...] | | | | | [place] [address] | | + + + + + | Thania Mallory | ECON | [address] | | | | | [place] [address] | | + + + + + | Deidra Weldon | ECON | [address] | | | | | [place] | | | | | [address] | | + + + + + Care Team Providers + +------+ + | Care Acrobatic Dancer Name | Role | Phone | + +------+ + | Jonathna Alonso MD | PCP | | + [...] + + | 01/20/ | Documentati | Transplant | Mariza Hsu | Social Work Waitlist | | 2014 | on | Coordinators [address] | [address] | Update ([place] [address] | | | | [address] | [address] | check-in on pt's | | | | Rd [place], [place] | [place], [place] | support plan & | | | | [address] | [address] | social changes) | | | | [phone] | | | +--------+ + + + [...] Denise | | | | | | [place], [place] | | | | | | [address] | | | | | | [phone] | | | | | | | | +--------+ + + + + documented as of this encounter Visit Diagnoses Not on filedocumented in this encounter"
--- OUTSIDE RECORDS SUMMARY | ~2019-01-06 | XMS | Encounter Summary ---
Demographics + + + | Address | [address] | | | [place] [address] | + + + | Home Phone [...] + + + + + | Cory Weldno | ECON | [address] | | | | | [place] [address] | | + + + + + | Thania Mallory | ECON | [address] | | | | | [place] [address] | | + + + + + | Deidra Weldon | ECON | [address] | | | | | [place] | | | | | [address] | | + + + + + Care Team Providers + +------+ + | Care Wood Patternmaker Name | Role | Phone | + +------+ + | Shahid Camargo MD | PCP | | + +------+ + Encounter Details +--------+ + + + + | Date | Type | Department | Care Team | Description | +--------+ + + + + | 12/20/ | Hospital | Radiology at [facility] | | | | 2012 | Encounter | [address] | | | | | | Caro Chan Mailcode: | | | | | | [address] | | | | | | [place], [place] | | | | | | [address] | | | | | | [phone] | | | +--------+ + + + [...] Denise | | | | | | [place], [place] | | | | | | [address] | | | | | | [phone] | | | | | | | [...] | e | 9:27 AM | MEDICARE [id number] | procedure are in the | | [...]
--- OUTSIDE RECORDS SUMMARY | ~2019-01-06 | XMS | Encounter Summary ---
Demographics + + + | Address | [address] | | | [place] [address] | + + + | Home Phone [...] | | | | | [place] [address] | | + + + + + | Thania Mallory | ECON | [address] | | | | | [place] [address] | | + + + + + | Deidra Weldon | ECON | [address] | | | | | [place] | | | | | [address] | | + + + + + Care Team Providers + +------+ + | Care Night Time Babysitter Name | Role | Phone | + [...] | 12/19/ | Documentati | Transplant | Kelsi Martinez, | Transplant Form | | 2012 | on | Coordinators [address]181 | RN [address] | Update | | | | ANNALISA [facility] | [facility] | | | | | Rd [place], [place] | [place], [place] | | | | | [address] | [address] | | | | | [phone] | | | +--------+ + + + [...] Denise | | | | | | [place] | | | | | | [address] | | | | | | [phone] | | | | | | | | +--------+ + + + + documented as of this encounter Visit Diagnoses Not on filedocumented in this encounter"
--- OUTSIDE RECORDS SUMMARY | ~2019-01-06 | XMS | Encounter Summary ---
Demographics + + + | Address | [address] | | | [place] [address] | + + + | Home Phone [...] | | | | | [place] [address] | | + + + + + | Thania Mallory | ECON | [address] | | | | | [place] [address] | | + + + + + | Deidra Weldon | ECON | [address] | | | | | [place] | | | | | [address] | | + + + + + Care Team Providers + +------+ + | Care Life Insurance Actuary Name | Role | Phone | + [...] + + | 12/27/ | Documentati | Transplant | Kelsi Martinez, | Transplant Form | | 2012 | on | Coordinators [address]181 | RN [address] | Update | | | | ANNALISA [facility] | [facility] | | | | | Rd [place], [place] | [place], [place] | | | | | [address] | [address] | | | | | [phone] | | | +--------+ + + + [...] Denise | | | | | | [place] | | | | | | [address] | | | | | | [phone] | | | | | | | | +--------+ + + + + documented as of this encounter Visit Diagnoses Not on filedocumented in this encounter"
--- OUTSIDE RECORDS SUMMARY | ~2019-01-06 | XMS | Encounter Summary ---
Demographics + + + | Address | [address] | | | [place] [address] | + + + | Home Phone [...] | | | | | [place] [address] | | + + + + + | Thania Mallory | ECON | [address] | | | | | [place] [address] | | + + + + + | Deidra Weldon | ECON | [address] | | | | | [place] | | | | | [address] | | + + + + + Care Team Providers + +------+ + | Care Fitter Up Name | Role | Phone | [...] D[address] | | | | | conchita | [address] | [address] | | | | | (HCC) | [address] | [address] | | | | | Procedures | Caro [address] | Rd Mailcode: | | | | | TRANSTHORACI | [place], [place] | D[facility]8S | | | | | C | [address] | [address] | | | | | ECHOCARDIOGR | Phone: | [place], [place] | | | | | AM, PEDS | [phone] | [address] | | | | | | Fax: | Phone: | | | | | | [phone] | [phone] | | | | | | | Fax: | | | | | | | [phone] | +--------+--------+ + + + + Reason [...] Cardiology | Allergic | Sudhakar Castellanos | Lab [address] | | | | | purpcorazon | [address] | [address] | | | | | (HCC) | [address] | [address] | | | | | Procedures | Caro Chan | Dustin Mailcode: | | | | | TRANSTHORACI | [place], [place] | D[facility]8S | | | | | C | [address] | [place] | | | | | ECHOCARDIOGR | Phone: | [place], [place] | | | | | AM, PEDS | [phone] | [address] | | | | | | Fax: | Phone: | | | | | | [phone] | [phone] | | | | | | | Fax: | | | | | | | [phone] | +--------+--------+ + + + + Encounter Details +--------+ + + + + | Date | Type | Department | Care Team | Description | +--------+ + + + + | 12/20/ | Hospital | Pediatric Echo Lab | | | | 2012 | Encounter | at [facility] [address] [facility] | | | | | | [address] | | | | | | Mailcode: DCH8S | | | | | | [address] | | | | | | [place], [place] | | | | | | [address] | | | | | | [phone] | | | +--------+ + + + [...] Denise | | | | | | [place], [place] | | | | | | [address] | | | | | | [phone] | | | | | | | [...]
--- OUTSIDE RECORDS SUMMARY | ~2019-01-06 | XMS | Encounter Summary ---
Demographics + + + | Address | [address] | | | [place] [address] | + + + | Home Phone | | + + + | Preferred Language | Unknown | + + + | Marital Status | Single | + + + | Nondenominational Affiliation | Unknown | + + + [...] | | | | | [place] [address] | | + + + + + | Thania Mallory | ECON | [address] | | | | | [place] [address] | | + + + + + | Deidra Weldon | ECON | [address] | | | | | [place] | | | | | [address] | | + + + + + Care Team Providers + +------+ + | Care Manager Of Internal Audit Name | Role | Phone | + +------+ + | Shahid Camargo MD | PCP | | + +------+ + Encounter Details +--------+ + + + + | Date | Type | Department | Care Team | Description | +--------+ + + + + | 12/20/ | Hospital | Radiology at [facility] | | | | 2012 | Encounter | [address] | | | | | | Caro Chan Mailcode: | | | | | | [address] | | | | | | [place], [place] | | | | | | [address] | | | | | | [phone] | | | +--------+ + + + [...] | | | | | | [place], [place] | | | | | | [address] | | | | | | [phone] | | | | | | | [...] | e | 9:27 AM | MEDICARE [phone] | procedure are in the | | [...]
--- OUTSIDE RECORDS SUMMARY | ~2019-01-06 | XMS | Encounter Summary ---
Demographics + + + | Address | [address] | | | [place] [address] | + + + | Home Phone [...] | | | | | [place] [address] | | + + + + + | Thania Mallory | ECON | [address] | | | | | [place] [address] | | + + + + + | Deidra Weldon | ECON | [address] | | | | | [place] | | | | | [address] | | + + + + + Care Team Providers + +------+ + | Care Recording Studio Internship Name | Role | Phone | [...] | recommendations) | | | | ANNALISA [facility] | [facility] | | | | | Rd [place], [place] | [place], [place] | | | | | [address] | [address] | | | | | [phone] | | | +--------+ + + + [...] Denise | | | | | | [place] | | | | | | [address] | | | | | | [phone] | | | | | | | | +--------+ + + + + documented as of this encounter Visit Diagnoses Not on filedocumented in this encounter"
--- OUTSIDE RECORDS SUMMARY | ~2019-01-06 | XMS | Encounter Summary ---
Demographics + + + | Address | [address] | | | [place] [address] | + + + | Home Phone [...] | | | | | [place] [address] | | + + + + + | Thania Mallory | ECON | [address] | | | | | [place] [address] | | + + + + + | Deidra Weldon | ECON | [address] | | | | | [place] | | | | | [address] | | + + + + + Care Team Providers + +------+ + | Care Dance Coach Name | Role | Phone | [...] | RN [address] | Requested | | | | [facility] | [facility] | | | | | Rd [place], [place] | [place], [place] | | | | | [address] | [address] | | | | | [phone] | | | +--------+ + + + [...] [place] | | | | | | [address] | | | | | | [phone] | | | | | | | | +--------+ + + + + documented as of this encounter Visit Diagnoses Not on filedocumented in this encounter"
--- OUTSIDE RECORDS SUMMARY | ~2019-01-06 | XMS | Encounter Summary ---
Demographics + + + | Address | [address] | | | [place] [address] | + + + | Home Phone [...] | | | | | [place] [address] | | + + + + + | Thania Mallory | ECON | [address] | | | | | [place] [address] | | + + + + + | Deidra Weldon | ECON | [address] | | | | | [place] | | | | | [address] | | + + + + + Care Team Providers + +------+ + | Care Workshop Manager Name | Role | Phone | [...] | | | [place], | [place] [address] | | | | | [place] [address] | [phone] | | | | | | | [...] Denise | | | | | | [place], [place] | | | | | | [address] | | | | | | [phone] | | | | | | | | +--------+ + + + + documented as of this encounter Visit Diagnoses Not on filedocumented in this encounter"
--- OUTSIDE RECORDS SUMMARY | ~2019-01-06 | XMS | Encounter Summary ---
Demographics + + + | Address | [address] | | | [place] [address] | + + + | Home Phone [...] | | | | | [place] [address] | | + + + + + | Thania Mallory | ECON | [address] | | | | | [place] [address] | | + + + + + | Deidra Weldon | ECON | [address] | | | | | [place] | | | | | [address] | | + + + + + Care Team Providers + +------+ + | Care Project Management Intern Name | Role | Phone | [...] | | Nephrology at | MD Emanuel [address] | | | | | [address] | [address] | | | | | [facility] | [place], [place] | | | | | [address] | [address] | | | | | Caro Chan Mailcode: | [phone] | | | | | [address] | | | | | | [place], [place] | | | | | | [address] | | | | | | [phone] | | | +--------+ + + + [...] Denise | | | | | | [place], [place] | | | | | | [address] | | | | | | [phone] | | | | | | | | +--------+ + + + + documented as of this encounter Visit Diagnoses Not on filedocumented in this encounter"
--- OUTSIDE RECORDS SUMMARY | ~2019-01-06 | XMS | Encounter Summary ---
Demographics + + + | Address | [address] | | | [place] [address] | + + + | Home Phone [...] | | | | | [place] [address] | | + + + + + | Thania Mallory | ECON | [address] | | | | | [place] [address] | | + + + + + | Deidra Weldon | ECON | [address] | | | | | [place] | | | | | [address] | | + + + + + Care Team Providers + +------+ + | Care Piece Goods Packer Name | Role | Phone | + [...] + + | 02/21/ | Telephone | Transplant | Kelsi Martinez, | Other (Transplant | | 2012 | | Coordinators [address] | RN [address] | Committee | | | | ANNALISA [facility] | [facility] | recommendations) | | | | Rd [place], [place] | [place], [place] | | | | | [address] | [address] | | | | | [phone] | | | +--------+ + + + [...] Denise | | | | | | [place] | | | | | | [address] | | | | | | [phone] | | | | | | | | +--------+ + + + + documented as of this encounter Visit Diagnoses Not on filedocumented in this encounter"
--- OUTSIDE RECORDS SUMMARY | ~2019-01-06 | XMS | Encounter Summary ---
Demographics + + + | Address | [address] | | | [place] [address] | + + + | Home Phone [...] | | | | | [place] [address] | | + + + + + | Thania Mallory | ECON | [address] | | | | | [place] [address] | | + + + + + | Deidra Weldon | ECON | [address] | | | | | [place] | | | | | [address] | | + + + + + Care Team Providers + +------+ + | Care Cna Hha Name | Role | Phone | + [...] | | | [place], | [place] [address] | | | | | [place] [address] | [phone] | | | | | | | [...] Denise | | | | | | [place], [place] | | | | | | [address] | | | | | | [phone] | | | | | | | [...] [facility] - | [address] | [place] [address] | | | IMMUNOGENETICS/TRANS | [address] | | | | PLANT LABORATORY | | | | + + + + + documented in this encounter Visit Diagnoses Not on filedocumented in this encounter"
--- OUTSIDE RECORDS SUMMARY | ~2019-01-06 | XMS | Encounter Summary ---
Demographics + + + | Address | [address] | | | [place] [address] | + + + | Home Phone [...] | | | | | [place] [address] | | + + + + + | Thania Mallory | ECON | [address] | | | | | [place] [address] | | + + + + + | Deidra Weldon | ECON | [address] | | | | | [place] | | | | | [address] | | + + + + + Care Team Providers + +------+ + | Care Product Applications Scientist Name | Role | Phone | [...] Decision | | | | ANNALISA [address] [facility] | [facility] | | | | | Rd [place], [place] | [place], [place] | | | | | [address] | [address] | | | | | [phone] | | | +--------+ + + + [...] Denise | | | | | | [place], [place] | | | | | | [address] | | | | | | [phone] | | | | | | | | +--------+ + + + + documented as of this encounter Visit Diagnoses Not on filedocumented in this encounter"
--- OUTSIDE RECORDS SUMMARY | ~2019-01-06 | XMS | Encounter Summary ---
Demographics + + + | Address | [address] | | | [place] [address] | + + + | Home Phone [...] | | | | | [place] [address] | | + + + + + | Thania Mallory | ECON | [address] | | | | | [place] [address] | | + + + + + | Deidra Weldon | ECON | [address] | | | | | [place] | | | | | [address] | | + + + + + Care Team Providers + +------+ + | Care Harnessmaker Name | Role | Phone | + [...] + + | 03/14/ | Abstract | Transplant | Jesus Edmond, | Care Coordination | | 2014 | | Coordinators [address]181 | [address] | (Care Everywher | | | | ANNALISA [address] [facility] | [address] | Query) | | | | Rd [place], [place] | [place], [place] | | | | | [address] | [address] | | | | | [phone] | [phone] | | | | | | | [...] [place] | | | | | | [address] | | | | | | [phone] | | | | | | | | +--------+ + + + + documented as of this encounter Visit Diagnoses Not on filedocumented in this encounter"
--- OUTSIDE RECORDS SUMMARY | ~2019-01-06 | XMS | Encounter Summary ---
Demographics + + + | Address | [address] | | | [place] [address] | + + + | Home Phone [...] | | | | | [place] [address] | | + + + + + | Thania Mallory | ECON | [address] | | | | | [place] [address] | | + + + + + | Deidra Weldon | ECON | [address] | | | | | [place] | | | | | [address] | | + + + + + Care Team Providers + +------+ + | Care Application Integration Engineer Name | Role | Phone | [...] class) | | | | [address] [place] | [facility] | | | | | Rd [place], [place] | [place], [place] | | | | | [address] | [address] | | | | | [phone] | | | +--------+ + + + [...] | | | | | | [place] | | | | | | [address] | | | | | | [phone] | | | | | | | | +--------+ + + + + documented as of this encounter Visit Diagnoses Not on filedocumented in this encounter"
--- OUTSIDE RECORDS SUMMARY | ~2019-01-06 | XMS | Encounter Summary ---
Demographics + + + | Address | [address] | | | [place] [address] | + + + | Home Phone [...] | | | | | [place] [address] | | + + + + + | Thania Mallory | ECON | [address] | | | | | [place] [address] | | + + + + + | Deidra Weldon | ECON | [address] | | | | | [place] | | | | | [address] | | + + + + + Care Team Providers + +------+ + | Care Cyber Software Engineer Name | Role | Phone | [...] | | | | | Caro [place], | | | | | | [place] [address] | | | +--------+ + + + [...] Denise | | | | | | [place], [place] | | | | | | [address] | | | | | | [phone] | | | | | | | [...] [facility] - | [address], | [place] [address] | | | IMMUNOGENETICS/TRANS | [address] | | | | PLANT LABORATORY | | | | + + + + + documented in this encounter Visit Diagnoses Not on filedocumented in this encounter"
--- OUTSIDE RECORDS SUMMARY | ~2019-01-06 | XMS | Encounter Summary ---
Demographics + + + | Address | [address] | | | [place] [address] | + + + | Home Phone [...] | | | | | [place] [address] | | + + + + + | Thania Mallory | ECON | [address] | | | | | [place] [address] | | + + + + + | Deidra Weldon | ECON | [address] | | | | | [place] | | | | | [address] | | + + + + + Care Team Providers + +------+ + | Care Rn Pediatric Name | Role | Phone | + [...] + + | 09/01/ | Abstract | Transplant | Jesus Edmond, | Transplant Form | | 2013 | | Coordinators [address] | [address] | Update (Preferred | | | | [address] | [address] | lab/Provider | | | | [place], [place] | [place], [place] | updated) | | | | [address] | [address] | | | | | [phone] | [phone] | | | | | | | [...] Denise | | | | | | [place], [place] | | | | | | [address] | | | | | | [phone] | | | | | | | | +--------+ + + + + documented as of this encounter Visit Diagnoses Not on filedocumented in this encounter"
--- OUTSIDE RECORDS SUMMARY | ~2019-01-06 | XMS | Encounter Summary ---
Demographics + + + | Address | [address] | | | [place] [address] | + + + | Home Phone [...] | | | | | [place] [address] | | + + + + + | Thania Malloyr | ECON | [address] | | | | | [place] [address] | | + + + + + | Deidra Weldon | ECON | [address] | | | | | [place] | | | | | [address] | | + + + + + Care Team Providers + +------+ + | Care Special Education Tutor Name | Role | Phone | + [...] Denise | | | | | | [place], [place] | | | | | | [address] | | | | | | [phone] | | | | | | | | +--------+ + + + + documented as of this encounter Visit Diagnoses Not on filedocumented in this encounter"
--- OUTSIDE RECORDS SUMMARY | ~2019-01-06 | XMS | Encounter Summary ---
Demographics + + + | Address | [address] | | | [place] [address] | + + + | Home Phone [...] | | | | | [place] [address] | | + + + + + | Thania Mallory | ECON | [address] | | | | | [place] [address] | | + + + + + | Deidra Weldon | ECON | [address] | | | | | [place] | | | | | [address] | | + + + + + Care Team Providers + +------+ + | Care Mixologist Name | Role | Phone | + [...] | Decision | | | | [address] [facility] | [facility] | | | | | Rd [place], [place] | [place], [place] | | | | | [address] | [address] | | | | | [phone] | | | +--------+ + + + [...] [place] | | | | | | [address] | | | | | | [phone] | | | | | | | | +--------+ + + + + documented as of this encounter Visit Diagnoses Not on filedocumented in this encounter"
--- OUTSIDE RECORDS SUMMARY | ~2019-01-06 | XMS | Encounter Summary ---
Demographics + + + | Address | [address] | | | [place] [address] | + + + | Home Phone [...] | | | | | [place] [address] | | + + + + + | Thania Mallory | ECON | [address] | | | | | [place] [address] | | + + + + + | Deidra Weldon | ECON | [address] | | | | | [place] | | | | | [address] | | + + + + + Care Team Providers + +------+ + | Care Sawmill Relief Worker Name | Role | Phone | [...] + + | 10/25/ | Abstract | Transplant | Jesus Edmond, | Transplant Form | | 2012 | | Coordinators [address] | [address] | Update | | | | ANNALISA [address] [facility] | [facility] | | | | | Dust[place], [place] | [place], [place] | | | | | [address] | [address] | | | | | [phone] | [phone] | | | | | | | [...] Denise | | | | | | [place], [place] | | | | | | [address] | | | | | | [phone] | | | | | | | | +--------+ + + + + documented as of this encounter Visit Diagnoses Not on filedocumented in this encounter"
--- OUTSIDE RECORDS SUMMARY | ~2019-01-06 | XMS | Encounter Summary ---
Demographics + + + | Address | [address] | | | [place] [address] | + + + | Home Phone [...] | Author | [facility] | | | and Josephana | + + + | Organization | [facility] | | | and Josephana [...] Team Providers + +------+ + | Care Fabric Worker Supervisor Name | Role | Phone | [...] + + | 12/17/ | Telephone | [facility] | [employer], Appointment | | 2019 | | [place] [facility] | Irish Obrien CMA | (Appointment with | | | | MANAGEMENT [address] | | PCP needed) | | | | [address] | | | | | | [place], [place] | | | | | | [address] | | | | | | [phone] | | | +--------+ + + + [...] [address] | | | | | | [address] | | | | | | [place] [address] | | | | | | [phone] | | | | | | | | +--------+---------+ + + + documented as of this encounter Visit Diagnoses Not on filedocumented in this encounter"
--- OUTSIDE RECORDS SUMMARY | ~2019-01-06 | XMS | Encounter Summary ---
Demographics + + + | Address | [address] | | | [place] [address] | + + + | Home Phone [...] | | | | | [place] [address] | | + + + + + | Thania Mallory | ECON | [address] | | | | | [place] [address] | | + + + + + | Deidra Weldon | ECON | [address] | | | | | [place] | | | | | [address] | | + + + + + Care Team Providers + +------+ + | Care Trade Show Specialist Name | Role | Phone | [...] 2014 | on | Coordinators [address] | RN [address] | ahead form) | | | | ANNALISA Hoffmann [facility] | [facility] | | | | | Rd [place], [place] | [place] | | | | | [address] | [address] | | | | | [phone] | | | +--------+ + + + [...] Denise | | | | | | [place] | | | | | | [address] | | | | | | [phone] | | | | | | | | +--------+ + + + + documented as of this encounter Visit Diagnoses Not on filedocumented in this encounter"
--- OUTSIDE RECORDS SUMMARY | ~2019-01-06 | XMS | Clinical Summary ---
Demographics + + + | Address | [address] | | | [place] [address] | + + + | Home Phone [...] Author | [facility] | | | and Josephana | + + + | Organization | [facility] | | | and [...] Team Providers + +------+ + | Care Vocational Psychologist Name | Role | Phone | + [...] Overview: Active Kidney Transplant Waiting List at [facility]: | | 03/07/2014 | + + [...] 9. 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 | + + + +---+ | ESRD [...] declot | | but reclotted). 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/ | | | | cardiomyopathy | | 2019 | | | | ([facility]); | | | | | | Non-cardiogenic | | | | | | pulmonary edema; | | | | | | Anemia in ESRD | | | | | | (end-stage renal | | | | | | disease) ([facility]); | | | | | | Hyperphosphatemia; [...] failure | | | | | | (FORMERLY [...] | 2018 | | | | dialysis ([facility]ERLY [facility]); End | | | | | | stage renal disease | | | | | | ([facility]) | +--------+ + + + + | 10/08/ | Orders Only | | Provider, | Systolic congestive | | 2018 | | | MD Rubén | heart failure ([facility]) | +--------+ + + + + from [...] [address] | | | | | | [place] [address] | | | | | | [phone] | | | | | | | [...] Left: | SYNOVIS - | | | [id number] | | 0.8x8cm - [id number]: | | Arm | SYNO | | [...] | | | COVIDIEN | | | [id number] | | | | | -MATT 867 - | | | 3404 / | | | | | COVI | | | | | | | | | | | /[id number] | | | | | | | [...] R?MRN: | | | | | | [id number] | | | [id number] | | | riteri | | | [...] | | | St. | | | [place] | | | y | | | [...] | | | St. | | | [place] | | | y | | | [...] | | | St. | | | [place] | | | y | | | [...] | | | St | | | [place] | | | y | | | [...] St | | | | | | [place] | | | y | | | [...] | | | St. | | | [place] | | | y | | | [...] | | | St. | | | [place] | | | y H. | | [...] | | | St. | | | [place] | | | y H. | | [...] | | | St. | | | [place] | | | y H. | | [...] | | | St. | | | [place] | | | y H. | | [...] | | | St. | | | [place] | | | y H. | | [...] | | | St. | | | [place] | | | y H. | | [...] | | | St. | | | [place] | | | y H. | | [...] | | | MD | | | Equipment Cleaner And Tester | | | al | | | [...] | | | [id number] | | | [id number] | | | 2b | | | [...] + | Billie Gupta MD 12/14/2018 9:54 [facility] | | | Medical Center Hemo-Dialysis Procedure [...] QB 450 AP | | | -200 Technical Consultant 170 Constitutional: pt appears without | | [...] recent of 4 results within the ti ga period is included. + + +--- + [...] | | | | | | at [facility], [address] | | | | | | [facility], | | | | | | [place] [address] | | | | | |Testing performed at [facility], [address] [place] [address] | | | | | | | [...] CENTER LABORATORY | [address] | [place] [address] | [phone] | + + + + + Basic [...] | | | | | | MDRD IDIA traceable | | | | | | equation.Testing | | | | | | performed at [facility], [address] | | | | | | [facility], | | | | | | [place] [address] | | | | + + + + + + + + | Specimen | + + | Blood | + + + + + + + | Performing | Address | City/State/Zipcode | Phone Number | | Organization | | | | + + + + + | [facility] | [address] | [place] [address] | [phone] | + + + + + XR [...] Special | Testing performed at | | [facility] | | | Requests | [facility];[address] | | LABORATORY | | | | [address] [address] | | | | + + + + + + | RESULT | NO GROWTH 6 DAYS | | [facility] | | | | | | LABORATORY | | + + + + + + | RESULT | Testing performed at | | [facility] | | | | T[facility], [address] | | LABORATORY | | | | [place] | | | | | | [address]Vmayhpl: Testing | | | | | | performed at [facility], [address] | | | | | | [place] [place] | | | | | | [address] | | | | + + + + + + + + | Specimen | + + | Blood | + + + + + + + | Performing | Address | City/State/Zipcode | Phone Number | | Organization | | | | + + + + + | [facility] | [address] | [place] [address] | [phone] | + + + + + CBC [...] [facility] | | | | performed at [facility], [address] | | LABORATORY | | | | [address] [place], | | | | | | [place] [address] | | | | + + + + + + + + | Specimen | + + | Blood | + + + + + + + | Performing | Address | City/State/Zipcode | Phone Number | | Organization | | | | + + + + + | [facility] | [address] | [place] [address] | [phone] | + + + + + C-Reactive Protein (12/12/2018 5:02 PDT) + + + + + + | Component | Value | Ref Range | Performed | Pathologist | | | | | At | Signature | + + + + + + | CRP | 8.6 (H)Comment: Testing | <0.5 mg/dL | [facility] | | | | performed at [facility], [address] | | LABORATORY | | | | [address], | | | | | | [place] [address] | | | | + + + + + + + + | Specimen | + + | Blood | + + + + + + + | Performing | Address | City/State/Zipcode | Phone Number | | Organization | | | | + + + + + | [facility] | [address] | [place] [address] | [phone] | + + + + + Influenza [...] | | | | | performed at [facility];[address] | | | | | | [address];[place] | | | | | | [address] | | | | + + + + + + + + | Specimen | + + | | + + + + + + + | Performing | Address | City/State/Zipcode | Phone Number | | Organization | | | | + + + + + | [facility] | [address] | [place] [address] | [phone] | + + + + + FLU SWAB COLLECTION (12/11/2018 15:46 PDT) + + + + + + | Component | Value | Ref Range | Performed | Pathologist | | | | | At | Signature | + + + + + + | Collection | SPECIMEN RECEIVED IN | | [facility] | | | | LABComment: Testing | | LABORATORY | | | | performed at [facility];[address];[place], [place] | | | | | | [address] [...] CENTER LABORATORY | [address] | [place] [address] | [phone] | + + + + + POC Glucose (12/11/2018 8:31 PDT) + + + + + + | Component | Value | Ref Range | Performed | Pathologist | | | | | At | Signature | + + + + + + | Glucose, | 84Comment: Testing | 65 - 99 mg/dL | [facility] | | | POC | performed at [facility];[address] | | LABORATORY | | | | [address];[place], [place] | | | | | | [address] | | | | + + + + + + + + | Specimen | + + | | + + + + + + + | Performing | Address | City/State/Zipcode | Phone Number | | Organization | | | | + + + + + | [facility] | [address] | [place] [address] | [phone] | + + + + + ECG [...] | | | | | ONLY, -COMPUTER (935), | | | | | | medical transcription editor Daniela Luciano | | | | [...] [facility] | | | | performed at [facility];[address] | | LABORATORY | | | | [address];[place], [place] | | | | | | [address] | | | | + + + + + + + + | Specimen | + + | Blood | + + + + + + + | Performing | Address | City/State/Zipcode | Phone Number | | Organization | | | | + + + + + | [facility] | [address] | [place] [address] | [phone] | + + + + + CT [...] LABORATORY | | | | performed at [facility] | | | | | | [address];[place], [place] | | | | | | [address] | | | | + + + + + + + + | Specimen | + + | | + + + + + + + | Performing | Address | City/State/Zipcode | Phone Number | | Organization | | | | + + + + + | [facility] | [address] | [place] [address] | [phone] | + + + + + Lactic [...] | | | Serum | performed at [facility];[address] | mmol/L | LABORATORY | | | | [address];[place], [place] | | | | | | [address] | | | | + + + + + + + + | Specimen | + + | Blood | + + + + + + + | Performing | Address | City/State/Zipcode | Phone Number | | Organization | | | | + + + + + | [facility] | [address] | [place] [address] | [phone] | + + + + + Troponin [...] at | | | | | | [facility];[address] | | | | | [address];[place] [address] | | | | + + + + + + + + | Specimen | + + | Blood | + + + + + + + | Performing | Address | City/State/Zipcode | Phone Number | | Organization | | | | + + + + + | [facility] | [address] | [place] [address] | [phone] | + + + + + Protime [...] | | | | | performed at [facility];[address] | | | | | | [address];[place] | | | | | | [address] | | | | + + + + + + + + | Specimen | + + | Blood | + + + + + + + | Performing | Address | City/State/Zipcode | Phone Number | | Organization | | | | + + + + + | [facility] | [address] | [place] [address] | [phone] | + + + + + Phosphorus [...] [facility] | | | | performed at [facility];[address] | | LABORATORY | | | | [address];[place], [place] | | | | | | [address] | | | | + + + + + + + + | Specimen | + + | Blood | + + + + + + + | Performing | Address | City/State/Zipcode | Phone Number | | Organization | | | | + + + + + | [facility] | [address] | [place] [address] | [phone] | + + + + + Magnesium [...] Testing | 1.7 - 2.4 mg/dL | [facility] | | | | performed at [facility];[address] | | LABORATORY | | | | [address];[place], [place] | | | | | | [address] | | | | + + + + + + + + | Specimen | + + | Blood | + + + + + + + | Performing | Address | City/State/Zipcode | Phone Number | | Organization | | | | + + + + + | [facility] | [address] | [place] [address] | [phone] | + + + + + Comprehensive [...] | | | | | performed at [facility] | | | | | | [facility];[place], [place] | | | | | | [address] | | | | + + + + + + + + | Specimen | + + | Blood | + + + + + + + | Performing | Address | City/State/Zipcode | Phone Number | | Organization | | | | + + + + + | [facility] | [address] | [place] [address] | [phone] | + + + + + HEMODIALYSIS (11/09/2018 9:34 PDT) + + + | Narrative | Performed At | + + + | Billie Gupta MD 11/09/2018 9:34 [facility] | | | [facility] Hemo-Dialysis Procedure note Pt is seen [...] | | . 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 Technical Consultant 240 | | | Constitutional: pt appears [...] | | LABORATORY | | | | Blvd;[place] [address] | | | | + + + + + + | Gram Stain | NO CELLS OR ORGANISMS | | [facility] | | | Result | SEEN | | LABORATORY | | + + + + + + | RESULT | NO GROWTH 4 DAYS | | [facility] | | | | | | LABORATORY | | + + + + + + | RESULT | Testing performed at | | [facility] | | | | [facility], [address] [facility] | | LABORATORY | | | | [place] | | | | | | [address]Qzuafkf: Testing | | | | | | performed at [facility], [address] | | | | | | [address] [place] [place] | | | | | | [address] | | | | + + + + + + + + | Specimen | + + | Body Fluid | + + + + + + + | Performing | Address | City/State/Zipcode | Phone Number | | Organization | | | | + + + + + | [facility] | [address] | [place] [address] | [phone] | + + + + + Cell [...] + + + | BF RBC | <74535 | /mm3 | [facility] | | | [...] | | | Counted | performed at [facility] | | LABORATORY | | | | [address];[place], [place] | | | | | | [address] | | | | + + + + + + + + | Specimen | + + | Body Fluid | + + + + + + + | Performing | Address | City/State/Zipcode | Phone Number | | Organization | | | | + + + + + | [facility] | [address] | [place] [address] | [phone] | + + + + + Protein, Body Fluid (11/07/2018 15:15 PDT) + + + + + + | Component | Value | Ref Range | Performed | Pathologist | | | | | At | Signature | + + + + + + | Protein, BF | 3.4Comment: This is not | g/dL | [facility] | | | | a banker mason validated | | LABORATORY | | | | sample type for this | | | | | | method. No | | | | | | referenceranges have | | | | | | been established.Testing | | | | | | performed at [facility], [address] | | | | | [address] [facility], | | | | | | [place] [address] | | | | + + + + + + | SOURCE | PLEURAL FLUIDComment: | | [facility] | | | | Testing performed at | | LABORATORY | | | | [facility];[address] | | | | | [address];[place] [address] | | | | + + + + + + + + | Specimen | + + | Body Fluid | + + + + + + + | Performing | Address | City/State/Zipcode | Phone Number | | Organization | | | | + + + + + | [facility] | [address] [facility] | [place] [address] | [phone] | + + + + + Lactate dehydrogenase, body fluid (11/07/2018 15:15 PDT) + + + + + + | Component | Value | Ref Range | Performed | Pathologist | | | | | At | Signature | + + + + + + | LDH, BODY | 102Comment: This is not | U/L | [facility] | | | FLUID | a banker mason validated | | LABORATORY | | | | sample type for this | | | | | | method. No | | | | | | referenceranges have | | | | | | been established.Testing | | | | | | performed at [facility], [address] | | | | | [address] [facility], | | | | | | [place] [address] | | | | + + + + + + + + | Specimen | + + | Body Fluid | + + + + + + + | Performing | Address | City/State/Zipcode | Phone Number | | Organization | | | | + + + + + | [facility] | [address] | [place] [address] | [phone] | + + + + + Glucose, Body Fluid (11/07/2018 15:15 PDT) + + + + + + | Component | Value | Ref Range | Performed | Pathologist | | | | | At | Signature | + + + + + + | Glucose | 96Comment: This is not a | mg/dL | [facility] | | | Fluid | banker mason validated | | LABORATORY | | | | sample type for this | | | | | | method. No | | | | | | referenceranges have | | | | | | been established.Testing | | | | | | performed at [facility], [address] | | | | [address], | | | | | | [place] [address] | | | | + + + + + + | SOURCE | PLEURAL FLUIDComment: | | [facility] | | | | Testing performed at | | LABORATORY | | | | [facility];[address] | | | | | | [address];[place] [address] | | | | + + + + + + + + | Specimen | + + | Body Fluid | + + + + + + + | Performing | Address | City/State/Zipcode | Phone Number | | Organization | | | | + + + + + | [facility] | [address] | [place] [address] | [phone] | + + + + + Amylase, Body Fluid (11/07/2018 15:15 PDT) + + + + + + | Component | Value | Ref Range | Performed | Pathologist | | | | | At | Signature | + + + + + + | AMYLASE | 46Comment: This is not a | U/L | [facility] | | | FLUID | banker mason validated | | LABORATORY | | | | sample type for this | | | | | | method. No | | | | | | referenceranges have | | | | | | been established.Testing | | | | | | performed at [facility], [address] | | | | | | [address] [facility], | | | | | | [place] [address] | | | | + + + + + + + + | Specimen | + + | Body Fluid | + + + + + + + | Performing | Address | City/State/Zipcode | Phone Number | | Organization | | | | + + + + + | [facility] | [address] | [place] [address] | [phone] | + + + + + Albumin, Body Fluid (11/07/2018 15:15 PDT) + + + + + + | Component | Value | Ref Range | Performed | Pathologist | | | | | At | Signature | + + + + + + | Albumin, | 2.0Comment: This is not | g/dL | [facility] | | | Fluid | a banker mason validated | | LABORATORY | | | | sample type for this | | | | | | method. No | | | | | | referenceranges have | | | | | | been established.Testing | | | | | | performed at [facility], [address] | | | | | [address], | | | | | | [place] [address] | | | | + + + + + + + + | Specimen | + + | Body Fluid | + + + + + + + | Performing | Address | City/State/Zipcode | Phone Number | | Organization | | | | + + + + + | [facility] | [address] | [place] [address] | [phone] | + + + + + Medical Cytology (11/07/2018 15:15 PDT) + + | Specimen | + + | Body Fluid | + + + + + | Narrative | Performed At | + + + | ORDERING | [facility] | | PHYSICIAN:Darell Kowalski MD PATIENT NAME:DARA LOUISE | Crowdx | | RAYEGENDER: Alysia : 1995 SPECIMEN(S): [...] | | | preparation was performed by [facility], [address] [place] [address] | | | [place] [address] (Costume Mistress: Matt Claudio D.O.; | | | CLIA#: [id number]).Professional interpretation was performed by | | | [facility], [address], | | | [place] [address] (Costume Mistress: Daniel Larson M.D.; | | | CLIA#: [id number]).6 Diagnostician: Enrrique Nichols | | | CT([facility])CytotechnologistDiagnostician: Daniel Larson | | | MDPathologistElectronically Signed 11/13/2018 | | |DESCRIPTION: | | |The preparations contain mesothelial cells, rare inflammatory cells, and acellular proteina ceous material. Atypical cytologic findings are not encountered. | | | | | |SPECIMEN ADEQUACY: | | |Satisfactory for Evaluation | | | | | |PERFORMING LABORATORY: | | |Technical preparation was performed by [facility], [address] [place] [id number] (Costume Mistress: Matt Claudio D.O.; CLIA#: [id number]). | | |Professional interpretation was performed by [facility], [facility], [address] [place] [id number] (Costume Mistress: Daniel Larson M.D.; CLIA# : [id number]).6 | | | | | |Diagnostician: Enrrique BROOKS([facility]) | | |Material Loader | | |Diagnostician: Daniel Larson MD | [...] Testing | 150 - 400 K/uL | [facility] | | | Count | performed at [facility], [address] | | LABORATORY | | | | [address], | | | | | | [place] [address] | | | | + + + + + + + + | Specimen | + + | Blood | + + + + + + + | Performing | Address | City/State/Zipcode | Phone Number | | Organization | | | | + + + + + | [facility] | [address] | [place] [address] | [phone] | + + + + + Lactate Dehydrogenase (11/07/2018 4:03 PDT) + + + + + + | Component | Value | Ref Range | Performed | Pathologist | | | | | At | Signature | + + + + + + | LDH TOTAL | 202Comment: Testing | 120 - 246 U/L | [facility] | | | | performed at [facility];[address] | | LABORATORY | | | | [address];[place] | | | | | | [address] | | | | + + + + + + + + | Specimen | + + | Blood | + + + + + + + | Performing | Address | City/State/Zipcode | Phone Number | | Organization | | | | + + + + + | [facility] | [address] | [place] [address] | [phone] | + + + + + ECHO [...] CHEST 1 VIEW (10/17/2018); CHEST TWO VIEWS 26691 | | | (10/17/2018); FINDINGS: Compared to [...] VIEW | | (10/17/2018); CHEST TWO VIEWS 55050 (10/17/2018); | | FINDINGS: | | Compared [...] + +--- + + + | % Segmented | [...] EXTERNAL | | | Segmented | | K/ uL | LAB | | | Neutrophils | [...] | | | | | | at [facility], [address] | | | | | | [employer], | | | | | | [place] [address] | | | | | |Testing performed at [facility], [address] [facility], [place] [address] | | | | | | | [...] EXTERNAL | | | | performed at [facility];[address] | | LAB | | | | [address];[place], [place] | | | | | | [address] | | | | + + + [...] at | | | | | | [facility];[address] [place] [address] | | | | | | Blvd;[place] [address] | | | | + + + [...] | | LAB | | | | [facility];[address] | | | | | | [address];[place] [address] | | | | + + + [...] +--------+ +---------+--------+ | MEDICARE | MEDICA | [id number] | 05/05/19 | [phone] | | Medica | | | RE | | 13-Pre | 5 | | re | | | PART A | | sent | | | | | | AND B | | | | | | + +--------+ +--------+ +---------+--------+ | MEDICARE | MEDICA | [id number] | 05/05/19 | [phone] | | Medica | | | RE | | 13-Pre | 5 | | re | | | PART A | | sent | | | | | | AND B | | | | | | + +--------+ +--------+ +---------+--------+ | [employer] | MODA | [id number] | | [phone] | | Medica | | MEDICAID HMO | HEALTH | | 019-Pr | 1 | | id | | | MDCD | | esent | | | | | | HMO OR | | | | | | + +--------+ +--------+ +---------+--------+ | [employer] | MODA | [id number] | | [phone] | | Medica | | MEDICAID HMO [...] | Self | [birth year] | [address] | | | al/Fam | | 1994 | [phone] | [address] [place] | | | [place] | | | 2 (Home) | [address] | + +--------+ +--------+ + + | Dara Louise | Person | Self | [birth year] | | [address] | | | al/Fam | | 1994 | [phone] | [address] [place] | | | [place] | | | 2 (Home) | [phone] | + +--------+ +--------+ + + | Cory Louise | Person | Father | [birth year] | [address] | | | al/Fam | | 1971 | [phone] | [place] [address] | | | [place] | | | 9 (Home) | | + +--------+ +--------+ + + Advance Directives Patient has advance care planning documents, and code status on file. For more information, please contact:[facility] [place] [address] + + + + + | Code [...]
--- OUTSIDE RECORDS SUMMARY | ~2019-01-06 | XMS | Encounter Summary ---
Demographics + + + | Address | [address] | | | [place] [address] | + + + | Home Phone | | + + + | Preferred Language | Unknown | + + + | Marital Status | Single | + + + | Cheondoism Affiliation | Unknown | + + + | Race | Unknown | + + + | Ethnic Group | Unknown | + + + Author + + + | Author | [facility] (Historical as of | | | 10-20-18) | + + + | Organization | [facility] (Historical as of | | | 10-20-18) [...] Providers + +------+ + | Care Animal Caregiver Name | Role | Phone | + +------+ + | Jonathan Alonso MD | PCP | | + +------+ + Reason for Visit +--------+ + | Reason | Comments | +--------+ + | Other | September 2018-[facility] Provider Dialysis Rounding Note | +--------+ + Encounter Details +--------+ + + + + | Date | Type | Department | Care Team | Description | +--------+ + + + + | 10/09/ | Documentati | [facility] | René Anguiano MD | Other (September | | 2018 | on Only | [place] [address] | [address] | 2019-[facility] Provider | | | | [address] | [address] [place], [place] | Dialysis Rounding | | | | [place] [address] | [address] | Note) | | | | [phone] | | | +--------+ + + + [...]
--- OUTSIDE RECORDS SUMMARY | ~2019-01-06 | XMS | Encounter Summary ---
Demographics + + + | Address | [address] | | | [place] [address] | + + + | Home Phone [...] | | | | | [place] [address] | | + + + + + | Thania Mallory | ECON | [address] | | | | | [place] [address] | | + + + + + | Deidra Weldon | ECON | [address] | | | | | [place] | | | | | [address] | | + + + + + Care Team Providers + +------+ + | Care Feed Manager Name | Role | Phone | + +------+ + | No Pcp Per Patient | PCP | Unavailable | + +------+ + Encounter Details +--------+ + + + + | Date | Type | Department | Care Team | Description | +--------+ + + + + | 12/12/ | Abstract | Transplant | Sudhakar Joy | | | 2013 | | Coordinators [address] Castellanos MD [address] | | | | | [address] [facility] | [facility] Dustin | | | | | [place], [place] | [place], [place] | | | | | [address] | [address] | | | | | [phone] | [phone] | | | | | | | [...] Denise | | | | | | [place], [place] | | | | | | [address] | | | | | | [phone] | | | | | | | | +--------+ + + + + documented as of this encounter Visit Diagnoses Not on filedocumented in this encounter"
--- OUTSIDE RECORDS SUMMARY | ~2019-01-06 | XMS | Encounter Summary ---
Demographics + + + | Address | [address] | | | [place] [address] | + + + | Home Phone [...] | | | | | [place] [address] | | + + + + + | Thania Mallory | ECON | [address] | | | | | [place] [address] | | + + + + + | Deidra Weldon | ECON | [address] | | | | | [place] | | | | | [address] | | + + + + + Care Team Providers + +------+ + | Care Microfilm Operator Name | Role | Phone | [...] Mailcode: | | | | | | [address] | [address] | | | | | | [address]even [address] | [place] | | | | | | [place], | [place], [place] | | | | | | [place] | [address] | | | | | | [address] | Phone: | | | | | | Phone: | [phone] | | | | | | [phone] | | | | | | | Fax: | | | | | | | [phone] | | +--------+--------+ + + + + Encounter Details +--------+---------+ + + + | Date | Type | Department | Care Team | Description | +--------+---------+ + + + | 01/20/ | Office | Specialty Clinics | Sudhakar Joy | HSP | | 2014 | Visit | at [facility] [address] MD [address] | ([place] | | | | [facility] [address] | [facility] [address] | purpura) nephritis | | | | Mailcode: DC7 | [place], [place] | (Primary Dx); | | | | [place] | [address] | Allergic purpura- | | | | [place], [place] | [phone] | MEDICARE 2728; | | | | [address] | | Anemia of chronic | | | | [phone] | | kidney failure, | | | [...] [address] Mail code [facility] [place], [place] [id number] documented in this encounter Plan of Treatment +--------+ + + + + | Date | Type | Specialty | Care Team | Description | +--------+ + + + + | 05/04/ | Hospital | Adult Acute Care | El Starr MD | | | 2022 | Encounter | | [address] | | | | | | [place], [place] | | | | | | [address] | | | | | | [phone] | | | | | | | [...]
--- OUTSIDE RECORDS SUMMARY | ~2019-01-06 | XMS | Encounter Summary ---
Demographics + + + | Address | [address] | | | [place] [address] | + + + | Home Phone [...] | | | | | [place] [address] | | + + + + + | Thania Mallory | ECON | [address] | | | | | [place] [address] | | + + + + + | Deidra Weldon | ECON | [address] | | | | | [place] | | | | | [address] | | + + + + + Care Team Providers + +------+ + | Care Dental Financial Coordinator Name | Role | Phone | [...] Pool Shun | | | | | [facility] | [facility] | | | | | Rd [place], [place] | [place], [place] | | | | | [address] | [address] | | | | | [phone] | | | +--------+ + + + [...] Denise | | | | | | [place] | | | | | | [address] | | | | | | [phone] | | | | | | | | +--------+ + + + + documented as of this encounter Visit Diagnoses Not on filedocumented in this encounter"
--- OUTSIDE RECORDS SUMMARY | ~2019-01-06 | XMS | Encounter Summary ---
[...] | | | | | [place] [address] | | + + + + + | Thania Mallory | ECON | [address] | | | | | [place] [address] | | + + + + + | Deidra Weldon | ECON | [address] | | | | | [place] | | | | | [address] | | + + + + + Care Team Providers + +------+ + | Care Automated Manufacturing Instructor Name | Role | Phone | [...] | | | | | [address] [facility] | [facility] | | | | | Rd [place], [place] | [place], [place] | | | | | [address] | [address] | | | | | [phone] | | | +--------+ + + + [...] Denise | | | | | | [place] | | | | | | [address] | | | | | | [phone] | | | | | | | | +--------+ + + + + documented as of this encounter Visit Diagnoses Not on filedocumented in this encounter"
--- OUTSIDE RECORDS SUMMARY | ~2019-01-06 | XMS | Encounter Summary ---
Demographics + + + | Address | [address] | | | [place] [address] | + + + | Home Phone [...] | | | | | [place] [address] | | + + + + + | Thania Mallory | ECON | [address] | | | | | [place] [address] | | + + + + + | Deidra Weldon | ECON | [address] | | | | | [place] | | | | | [address] | | + + + + + Care Team Providers + +------+ + | Care Dictaphone Transcriber Name | Role | Phone | + [...] | ABO) | | | | [address]NAL[address] [facility] | [facility] | | | | | Rd [place], [place] | [place], [place] | | | | | [address] | [address] | | | | | [phone] | | | +--------+ + + + [...] Denise | | | | | | [place], [place] | | | | | | [address] | | | | | | [phone] | | | | | | | [...] + + | [facility] - | [address] | [place] | [phone] | | [place] | | | | + + + + + documented in this encounter Visit Diagnoses Not on filedocumented in this encounter"
--- OUTSIDE RECORDS SUMMARY | ~2019-01-06 | XMS | Encounter Summary ---
Demographics + + + | Address | [address] | | | [place] [address] | + + + | Home Phone [...] | | | | | [place] [address] | | + + + + + | Thania Mallory | ECON | [address] | | | | | [place] [address] | | + + + + + | Deidra Weldon | ECON | [address] | | | | | [place] | | | | | [address] | | + + + + + Care Team Providers + +------+ + | Care Public Bath Attendant Name | Role | Phone | [...] | 2013 | | Coordinators [address] | [place], [place] | Update | | | | [address] [facility] | [address] | | | | | Rd [place], [place] | | | | | | [address] | | | | | | [phone] | | | +--------+ + + + [...] Denise | | | | | | [place], [place] | | | | | | [address] | | | | | | [phone] | | | | | | | | +--------+ + + + + documented as of this encounter Visit Diagnoses Not on filedocumented in this encounter"
--- OUTSIDE RECORDS SUMMARY | ~2019-01-06 | XMS | Encounter Summary ---
Demographics + + + | Address | [address] | | | [place] [address] | + + + | Home Phone [...] | | | | | [place] [address] | | + + + + + | Thania Mallory | ECON | [address] | | | | | [place] [address] | | + + + + + | Deidra Weldon | ECON | [address] | | | | | [place] | | | | | [address] | | + + + + + Care Team Providers + +------+ + | Care Overhauler Bus Truck Name | Role | Phone | + +------+ + | Shahid Camargo MD | PCP | | + +------+ + Encounter Details +--------+------+ + + + | Date | Type | Department | Care Team | Description | +--------+------+ + + + | 12/20/ | Lab | [facility] | | Allergic purpura- | | 2012 | | 7th Floor [address] | | MEDICARE [address] | | | | [address] | | (Primary Dx) | | | | [place], [place] | | | | | | [address] | | | | | | [phone] | | | +--------+------+ + + + [...] Denise | | | | | | [place], [place] | | | | | | [address] | | | | | | [phone] | | | | | | | [...] | HIV-1,2 AB/HIV-1 P24 | Routin | 12/20/2012 | Allergic purpura- | Results for this | | AG SCRN | e | 8:39 AM | MEDICARE [...] - | [address] | [place], [place] | | | IMMUNOGENETICS/TRANS | [address] [...] - | [address] | [place], [place] | | | IMMUNOGENETICS/TRANS | Suite [...] | + + + + + | [facility] - | [address] | [place] [address] | | | IMMUNOGENETICS/TRANS | [address] | | | | PLANT LABORATORY | | | | + + + + + LIT HLA-B LOW RES-KE (12/20/2012 10:02 AM PDT) + + | Specimen | + + | Blood - Blood | + + + + + + + | Performing | Address | City/State/Zipcode | Phone Number | | Organization | | | | + + + + + | [facility] - | [address] | [place] [address] | | | IMMUNOGENETICS/TRANS | [address] | | | | PLANT LABORATORY | | | | + + + + + LIT FLOW HLA AB PRA SCREEN I/II EVA (12/20/2012 10:02 AM PDT) + + | Specimen | + + | Blood - Blood | + + + + + + + | Performing | Address | City/State/Zipcode | Phone Number | | Organization | | | | + + + + + | [facility] - | [address] | [place] [address] | | | IMMUNOGENETICS/TRANS | [address] [...] - | [address] | [place], [place] | | | IMMUNOGENETICS/TRANS | [address] [...] - | [address] | [place], [place] | | | IMMUNOGENETICS/TRANS | Suite [...] + + + + + | [facility] - | [address] | [place] [address] | | | IMMUNOGENETICS/TRANS | [address] [...] + + | [facility] - | [address] | [place] [address] | | | IMMUNOGENETICS/TRANS | [address] [...] | + + + + + | [facility] | [address] | [place] [address] | | | SERVICES, | [address] | | | | TRANSFUSION MEDICINE [...] [facility] | [address] | [place] [address] | | | SERVICES, | [address] [...] | + + + + + | [facility] | [address] | [place] [address] | | | SERVICES, CORE | PARK [...] | REG UNIV | | | | Pippa Sauceda, [facility] | | PTH - INTFC | | | | [address] | | | | | | [phone]. | | | | | | annalee, [...] + + | [facility] | [address] | [place], [place] | | | UNIV PTH - INTFC | | [address] | | + + + + + [...] | 07/25/2012. | LABORATORY | | | [address] | + + + + + + + + | Performing | Address | City/State/Zipcode | Phone Number | | Organization | | | | + + + + + | [facility] | [address] | [place] [address] | | | SERVICESHOMERO | [address] [...] | + + + + + | [facility] [facility] | [address] | [place] [address] | | | SERVICES, CORE | PARK [...] + | [facility] - | [address] | [place] [address] | | | [place] | | | [...] + + + + + + | [facility] | Jennifer (A) | None /hpf | [...] | + + + + + | [facility] | [address] | [place] [address] | | | SERVICES, CORE | PARK [...] (H) | 2.5 - 6.2 mg/dL | [facility] | | | PLASMA | | | [...] [facility] | [address] | [place] [address] | | | SERVICES, CORE | PARK [...] | + + + + + | [facility] | [address] | [place] [address] | | | SERVICES, CORE | PARK [...] - | | | | | | [facility] | | + + + + + + + + | Specimen | + + | Blood - Blood | + + + + + + + | Performing | Address | City/State/Zipcode | Phone Number | | Organization | | | | + + + + + | [facility] - | [address] | [place] [address] | | | [place] | | | [...] at: | | | | | | http://www.cdc.gov/nchstp/tb/pubs/tbfactssheets/763911.htm | | | Test performed by: [facility] [address] | | [address] [place] [address] | | + + + + + [...] [facility] | [address] | [place] [address] | | | SERVICES, SPECIAL | PARK [...] INTERPRETATION: Prothrombin mutation analysis shows that | [facility] | | there is no mutation in either copy of the prothrombin gene at | DIAGNOSTIC | | nucleotide 65704. Please note that this assay only detects the | LABORATORIES | | [id number] point mutation and therefore a normal result [...] has been analyzed for the presence of [id number] | | | mutation in the prothrombin [...] | | Heterozygotes for the common prothrombin [id number] mutation constitute | | | approximately 2% of the normal white population (1,2). | | | References: 1.) Poort et al. Blood 88, 1390-1291 (1995). 2.) Ricardo | | | et al. Circulation 99, 999-1004 (1998). 3.) Al Montalvo, and | | | Press. Amer J Clin Path 155, 439-47 (2000). This test was | | | developed and its performance characteristics determined by the [facility] | | | [facility]. It has | | | not been cleared or approved by the Food and Drug Administration. | | | FDA approval is not required for clinical use of this test, and | | | therefore validation was done as required under the requirements of | | | the Clinical Laboratory Improvement Act of 1988. The [facility] | | | Diagnostic [facility] is a fully | | | licensed and/or accredited clinical laboratory under CLIA, CAP, and | | | the [facility]. Please note that our lab now also [...] | + + + + + | [facility] | [address] | [place] [address] | | | DIAGNOSTIC | [address] [...] [facility] | [address] | [place] [address] | | | SERVICES, HOMERO | PARK [...] | + + + + + | [facility] | [address] | [place] [address] | | | SERVICES, CORE | LONG [address] | | | + [...] [facility] | [address] | [place] [address] | | | SERVICES, CORE | PARK [...] mech. valves (2.5 - 3.5) INR | [facility] | + + + + + + + + | Performing | Address | City/State/Zipcode | Phone Number | | Organization | | | | + + + + + | [facility] | [address] | [place] [address] | | | [address] | LONG [...] | | | | | | [place], [place] [address] | | | | | | [phone].aruplab. | | | | | | Faisal [...] [facility] | [address] | [place], [place] | | | UNIV PTH - INTFC | | [address] | | + + + + + [...] | + + + + + | [facility] | [address] | [place] [address] | | | SERVICES, SPECIAL | PARK [...] C PCR, | Undetected | IU/mL | [facility] | | | QUANT | | | [...] + + + + | [facility] | [address] | [place] [address] | | | DIAGNOSTIC | [address] [...] + | [facility] - | [address] | [place] [address] | | | [place] | | | [...] + | [facility] - | [address] | [place] [address] | | | [place] | | | [...] + | [facility] - | [address] | [place] [address] | | | [place] | | | [...] + | [facility] - | [address] | [place] [address] | | | [place] | | | | + + + [...] less......Not | | | | | | Scvjsrwi36.0-21.9 | | | | | | U/mL.........Indetermina [...] available | | | | | | [email or web address] | | | | | | vdx.Performed by [facility] | | | | | | Laboratories,[address] | | | | | | [place], [facility] [place] [address] | | | | | | [phone].Reduxiolab. | | | | | | Faisal [...] [facility] | [address] | [place] | | | UNIV PTH - INTFC | | [address] | | + + + + + [...] + | [facility] | [address] | [place] [address] | | | [facility] | | | | + + [...] | + + + + + | [facility] | [address] | [place] [address] | | | SERVICES, CORE | PARK [...] by | | | | | | [address] | | | | | | Pippa Sauceda, [facility] | | | | | | [address] | | | | | | [phone].Reduxiolab. | | | | | | [facility] Faisal Caraballo, | | | | | [...] + + | [facility] | [address] | [place] | | | UNIV PTH - INTFC | | [address] | | + + + + + [...] [facility] | [address] | [place] [address] | | | SERVICES, CORE | PARK [...] [facility] | [address] | [place] [address] | | | [address] | LONG [...] | + + + + + | [facility] | [address] | [place] [address] | | | [address] | [address] | | | + + + + + documented in this encounter Visit Diagnoses + + | Diagnosis | + + | 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
--- OUTSIDE RECORDS SUMMARY | ~2019-01-06 | XMS | Clinical Summary ---
Demographics + + + | Address | [address] | | | [place] [address] | + + + | Home Phone [...] | | | | | [place] [address] | | + + + + + | Thania Mallory | ECON | [address] | | | | | [place] [address] | | + + + + + | Deidra Weldon | ECON | [address] | | | | | [place], [place] | | | | | [address] | | + + + + + Care Team Providers + +------+ + | Care Manufacturing Coordinator Name | Role | Phone | + +------+ + | Jonathan Alonso MD | PCP | | + +------+ + Source Comments DANILO is fully live on both EpicCare Ambulatory and EpicCare InPatient.[facility]erg[facility] + + + + + + [...] Denise | | | | | | [place], [place] | | | | | | [address] | | | | | | [phone] | | | | | | | [...] | | | | | | | [address] | | + +--------+ +--------+ + +--------+ | [place] [employer] | [place] | [id number] | Effect | | | [...] | RENAL | | for | | [place], | | | | RECIPI | | all | | [place] [address] | | | | ENT | | [...] | | al/Fam | | 1995 | [phone] | [address] [place] | | | kamron | | | 2 (Home) | [address] | | | | | [phone] | | | | | | | 0 (Work) | | + +--------+ +--------+ + + | CORY ALVES | Wanderbhavin | Mother | [birth year] | [address] | | | l | | [address] | [phone] | [address] [place] | | | Gamal | | | 2 (Home) | [address] | | | g | | | | | + +--------+ +--------+ + +
--- OUTSIDE RECORDS SUMMARY | ~2019-01-06 | XMS | Encounter Summary ---
Demographics + + + | Address | [address] | | | [place] [address] | + + + | Home Phone [...] | | | | | [place] [address] | | + + + + + | Thania Mallory | ECON | [address] | | | | | [place] [address] | | + + + + + | Deidra Weldon | ECON | [address] | | | | | [place] | | | | | [address] | | + + + + + Care Team Providers + +------+ + | Care Malter Operator Name | Role | Phone | + +------+ + | Shahid Camargo MD | PCP | | + +------+ + Reason for Visit +--------+ + | Reason | Comments | +--------+ + | Other | Requested [id number] | +--------+ + Encounter Details +--------+ + + + + | Date | Type | Department | Care Team | Description | +--------+ + + + + | 11/15/ | Telephone | Transplant | Jesus Edmond, | Other (Requested | | 2012 | | Coordinators [address] | [address] | [id number]) | | | | [address] [facility] | [facility] | | | | | Dustin [place], [place] | [place], [place] | | | | | [address] | [address] | | | | | [phone] | [phone] | | | | | | | [...] Denise | | | | | | [place], [place] | | | | | | [address] | | | | | | [phone] | | | | | | | | +--------+ + + + + documented as of this encounter Visit Diagnoses Not on filedocumented in this encounter"
--- OUTSIDE RECORDS SUMMARY | ~2019-01-06 | XMS | Encounter Summary ---
Demographics + + + | Address | [address] | | | [place] [address] | + + + | Home Phone [...] + | Author | [facility] | | | and [place] | + + + | Organization | [facility] | | [...] Team Providers + +------+ + | Care White Sourer Name | Role | Phone | + [...] + + | 11/13/ | Telephone | [facility] | Silvia Rabago | DME (OXYGEN) | | 2019 | | [address] | [place] | | | | | [place] | | | | | | [address] | | | | | | [phone] | | | +--------+ + + + [...] | | | | | [place] [address] | | | | | | [phone] | | | | | | | | +--------+---------+ + + + documented as of this encounter Visit Diagnoses Not on filedocumented in this encounter"
--- OUTSIDE RECORDS SUMMARY | ~2019-01-06 | XMS | Encounter Summary ---
Demographics + + + | Address | [address] | | | [place] [address] | + + + | Home Phone [...] | | | | | [place] [address] | | + + + + + | Thania Mallory | ECON | [address] | | | | | [place] [address] | | + + + + + | Deidra Weldon | ECON | [address] | | | | | [place] | | | | | [address] | | + + + + + Care Team Providers + +------+ + | Care Sas Bi Developer Name | Role | Phone | [...] Rd | | | | | [facility] | [place], [place] | | | | | [address] | [address] | | | | | Caro Chan Mailcode: | [phone] | | | | | [address] | | | | | | [place], [place] | | | | | | [address] | | | | | | [phone] | | | +--------+ + + + [...] [place] | | | | | | [address] | | | | | | [phone] | | | | | | | | +--------+ + + + + documented as of this encounter Visit Diagnoses Not on filedocumented in this encounter"
--- OUTSIDE RECORDS SUMMARY | ~2019-01-06 | XMS | Encounter Summary ---
Demographics + + + | Address | [address] | | | [place] [address] | + + + | Home Phone [...] [facility] | | | and [place] | + + + | Organization | [facility] | | | and [place] | + + + | Address | Unknown | + + + | Phone | Unavailable | + + + Support + + +---------+ + | Name | Relationship | Address | Phone | + + +---------+ + | Thania Mallory | ECON | Unknown | | + + +---------+ + | Saundra Mallory ECON | Unknown | | + + +---------+ + Care Team Providers + +------+ + | Care Software Database Architect Name | Role | Phone | + +------+ + | Jonathan Alonso MD | PCP | | + +------+ + Encounter Details +--------+ + + + + | Date | Type | Department | Care Team | Description | +--------+ + + + + | 10/08/ | Orders Only | [facility] | Provider, | Systolic congestive | | 2019 | | SYSTEM GENERIC OP | [address] | heart failure (HCC) | | | | CONVERSION [address] | [place] | | | | | [address] [place], [place] | [place] [address] | | | | | [address] | | | | | | [phone] | | | +--------+ + + + [...] [address] | | | | | | [place] [address] | | | | | | [phone] | | | | | | | | +--------+---------+ + + + + +--------+ + + | Name | Priori | Associated Diagnoses | Order Schedule | | | ty | | | + +--------+ + + | Comprehensive Metabolic Panel | Routin | Systolic | Expected: | | | e | congestive heart | 06/14/2018, Expires: | | | | failure (HCC) | 06/15/2019 | + +--------+ + + documented as of this encounter Visit Diagnoses + + | Diagnosis | + + | Systolic congestive heart failure (HCC) Unspecified systolic heart failure | + + documented in this encounter"
--- OUTSIDE RECORDS SUMMARY | ~2019-01-06 | XMS | Encounter Summary ---
Demographics + + + | Address | [address] | | | [place] [address] | + + + | Home Phone [...] | | | | | [place] [address] | | + + + + + | Thania Mallory | ECON | [address] | | | | | [place] [address] | | + + + + + | Deidra Weldon | ECON | [address] | | | | | [place] | | | | | [address] | | + + + + + Care Team Providers + +------+ + | Care Production Crew Supervisor Name | Role | Phone [...] | | Nephrology at | MD Emanuel [address] | | | | | Alexander | [address] | | | | | [facility] | [place], [place] | | | | | [address] | [address] | | | | | Caro Chan Mailcode: | [phone] | | | | | [address] | | | | | | [place], [place] | | | | | | [address] | | | | | | [phone] | | | +--------+ + + + [...] Denise | | | | | | [place], [place] | | | | | | [address] | | | | | | [phone] | | | | | | | [...] [address] | [place] [address] | [phone] | | HOSPITAL | | | | [...] | [address] | [place] [address] | [phone] | | HOSPITAL | | | | + + + + + documented in this encounter Visit Diagnoses Not on filedocumented in this encounter"
--- OUTSIDE RECORDS SUMMARY | ~2019-01-06 | XMS | Encounter Summary ---
Demographics + + + | Address | [address] | | | [place] [address] | + + + | Home Phone [...] | | | | | [place] [address] | | + + + + + | Thania Mallory | ECON | [address] | | | | | [place] [address] | | + + + + + | Deidra Weldon | ECON | [address] | | | | | [place] | | | | | [address] | | + + + + + Care Team Providers + +------+ + | Care Substation Supervisor Name | Role | Phone | [...] Update | | | | ANNALISA Hoffmann [facility] | [facility] [address] | | | | | [place], [place] | [place], [place] | | | | | [address] | [address] | | | | | [phone] | [phone] | | | | | | | [...] Denise | | | | | | [place] | | | | | | [address] | | | | | | [phone] | | | | | | | | +--------+ + + + + documented as of this encounter Visit Diagnoses Not on filedocumented in this encounter"
--- OUTSIDE RECORDS SUMMARY | ~2019-01-06 | XMS | Encounter Summary ---
Demographics + + + | Address | [address] | | | [place] [address] | + + + | Home Phone [...] | | | | | [place] [address] | | + + + + + | Thania Mallory | ECON | [address] | | | | | [place] [address] | | + + + + + | Deidra Weldon | ECON | [address] | | | | | [place] | | | | | [address] | | + + + + + Care Team Providers + +------+ + | Care Public Transit Bus Driver Name | Role | Phone | + +------+ + | Shahid Camargo MD | PCP | | + +------+ + Encounter Details +--------+ + + + + | Date | Type | Department | Care Team | Description | +--------+ + + + + | 12/19/ | Document-Sc | UNKNOWN DEPARTMENT | Unknown . | | | 2012 | anned | [address] [facility] [address] | | | | | | [facility] | | | | | | [place], [place] | | | | | | [address] | | | +--------+ + + + [...] [place] | | | | | | [address] | | | | | | [phone] | | | | | | | | +--------+ + + + + documented as of this encounter Visit Diagnoses Not on filedocumented in this encounter"
--- OUTSIDE RECORDS SUMMARY | ~2019-01-06 | XMS | Encounter Summary ---
Demographics + + + | Address | [address] | | | [place] [address] | + + + | Home Phone [...] | | | | | [place] [address] | | + + + + + | Thania Mallory | ECON | [address] | | | | | [place] [address] | | + + + + + | Deidra Weldon | ECON | [address] | | | | | [place] | | | | | [address] | | + + + + + Care Team Providers + +------+ + | Care Chief Internal Auditor Name | Role | Phone | [...] form) | | | | ANNALISA Hoffmann [facility] | [facility] | | | | | Rd [place], [place] | [place], [place] | | | | | [address] | [address] | | | | | [phone] | | | +--------+ + + + [...] Denise | | | | | | [place] | | | | | | [address] | | | | | | [phone] | | | | | | | | +--------+ + + + + documented as of this encounter Visit Diagnoses Not on filedocumented in this encounter"
--- OUTSIDE RECORDS SUMMARY | ~2019-01-06 | XMS | Encounter Summary ---
Demographics + + + | Address | [address] | | | [place] [address] | + + + | Home Phone [...] | | | | | [place] [address] | | + + + + + | Thania Mallory | ECON | [address] | | | | | [place] [address] | | + + + + + | Deidra Weldon | ECON | [address] | | | | | [place] | | | | | [address] | | + + + + + Care Team Providers + +------+ + | Care Processing Manager Name | Role | Phone | [...] Hoffmann | | | | | ANNALISA [facility] | [facility] | | | | | Rd [place], [place] | [place], [place] | | | | | [address] | [address] | | | | | [phone] | | | +--------+ + + + [...] | | | | | | [place] | | | | | | [address] | | | | | | [phone] | | | | | | | | +--------+ + + + + documented as of this encounter Visit Diagnoses Not on filedocumented in this encounter"
--- OUTSIDE RECORDS SUMMARY | ~2019-01-06 | XMS | Encounter Summary ---
Demographics + + + | Address | [address] | | | [place] [address] | + + + | Home Phone [...] | | | | | [place] [address] | | + + + + + | Thania Mallory | ECON | [address] | | | | | [place] [address] | | + + + + + | Deidra Weldon | ECON | [address] | | | | | [place] | | | | | [address] | | + + + + + Care Team Providers + +------+ + | Care Transport Tech Name | Role | Phone | [...] | | | | | [place], | | | | | | [place] [address] | | | +--------+ + + + [...] Denise | | | | | | [place], [place] | | | | | | [address] | | | | | | [phone] | | | | | | | [...] DANILO - | [address], | [place] [address] | | | IMMUNOGENETICS/TRANS | [address] | | | | [facility] | | | | + + + + + documented in this encounter Visit Diagnoses Not on filedocumented in this encounter"
--- OUTSIDE RECORDS SUMMARY | ~2019-01-06 | XMS | Encounter Summary ---
Demographics + + + | Address | [address] | | | [place] [address] | + + + | Home Phone [...] | | | | | [place] [address] | | + + + + + | Thania Mallory | ECON | [address] | | | | | [place] [address] | | + + + + + | Deidra Weldon | ECON | [address] | | | | | [place] | | | | | [address] | | + + + + + Care Team Providers + +------+ + | Care Poolroom Table Attendant Name | Role | Phone | [...] 2005 | Registratio | [place] | [phone] | | | | n | [address] Mailcode: [id number] | | | | | | [place], [place] | | | | | | [address] | | | | | | [phone] | | | +--------+ + + + [...] Denise | | | | | | [place], [place] | | | | | | [address] | | | | | | [phone] | | | | | | | [...] | [facility] | | | PATHOLOGY | [facility] | | DEPARTMENT | | [...] Garcia | | | | | | [facility], | | | | | | [place],labeled [place] | | | | | | kidney [...] number | | | | | | [id number].[email or web address]/lab | | | | | | [...] wall | | | | | | [id number]: | | | | | | NegativeFibrinogen: [...] | + + + + + | [facility] | [address] | [place] [address] | | | PATHOLOGY | [place] | | | + + + + + | [facility] | [address] | [place] [address] | | | PATHOLOGY | [place] | | | + + + + + documented in this encounter Visit Diagnoses Not on filedocumented in this encounter"
--- OUTSIDE RECORDS SUMMARY | ~2019-01-06 | XMS | Encounter Summary ---
Demographics + + + | Address | [address] | | | [place] [address] | + + + | Home Phone [...] | | | | | [place] [address] | | + + + + + | Thania Mallory | ECON | [address] | | | | | [place] [address] | | + + + + + | Deidra Weldon | ECON | [address] | | | | | [place] | | | | | [address] | | + + + + + Care Team Providers + +------+ + | Care Dust Collector Attendant Name | Role | Phone | [...] | Update | | | | ANNALISA [facility] | [facility] | | | | | Rd [place], [place] | [place], [place] | | | | | [address] | [address] | | | | | [phone] | | | +--------+ + + + [...] Denise | | | | | | [place] | | | | | | [address] | | | | | | [phone] | | | | | | | | +--------+ + + + + documented as of this encounter Visit Diagnoses Not on filedocumented in this encounter"
--- OUTSIDE RECORDS SUMMARY | ~2019-01-06 | XMS | Encounter Summary ---
Demographics + + + | Address | [address] | | | [place] [address] | + + + | Home Phone [...] | | | | | [place] [address] | | + + + + + | Thania Mallory | ECON | [address] | | | | | [place] [address] | | + + + + + | Deidra Weldon | ECON | [address] | | | | | [place] | | | | | [address] | | + + + + + Care Team Providers + +------+ + | Care Seal Delivery Vehicle Officer Name | Role | Phone | [...] | | | | | ANNALISA Hoffmann [facility] | [facility] | | | | | Rd [place], [place] | [place], [place] | | | | | [address] | [address] | | | | | [phone] | | | +--------+ + + + [...] Denise | | | | | | [place] | | | | | | [address] | | | | | | [phone] | | | | | | | | +--------+ + + + + documented as of this encounter Visit Diagnoses Not on filedocumented in this encounter"
--- OUTSIDE RECORDS SUMMARY | ~2019-01-06 | XMS | Encounter Summary ---
Demographics + + + | Address | [address] | | | [place] [address] | + + + | Home Phone [...] | | | | | [place] [address] | | + + + + + | Thania Mallory | ECON | [address] | | | | | [place] [address] | | + + + + + | Deidra Weldon | ECON | [address] | | | | | [place] | | | | | [address] | | + + + + + Care Team Providers + +------+ + | Care Solar Sales Advisor Name | Role | Phone [...] Update | | | | ANNALISA Hoffmann [facility] | [facility] | | | | | Rd [place], [place] | [place], [place] | | | | | [address] | [address] | | | | | [phone] | | | +--------+ + + + [...] Denise | | | | | | [place], [place] | | | | | | [address] | | | | | | [phone] | | | | | | | | +--------+ + + + + documented as of this encounter Visit Diagnoses Not on filedocumented in this encounter"
--- OUTSIDE RECORDS SUMMARY | ~2019-01-06 | XMS | Encounter Summary ---
Demographics + + + | Address | [address] | | | [place] [address] | + + + | Home Phone [...] + | Author | [facility] | | | and Josephana | + + + | Organization | [facility] | [...] Providers + +------+ + | Care Supervisor Hardboard Name | Role | Phone | + [...] + + | 11/06/ | Hospital | [facility] | Johnathan Brooks, | Chronic right-sided | | 2019 - | Encounter | [facility] | MD Brooks TORRES | heart failure (HCC) | | | | CARE FLOOR [address] | [place] [address] | (Primary Dx); Acute | | 11/09/ | | [address] | [phone] | hypoxemic | | 2019 | | [place], [place] | | respiratory failure | | | | [address] | Darell Kowalski MD | (HCC); Chronic | | | | [phone] | [address] | 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 | | | | | [phone] | failure (HCC); | | | | | | 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 | | | | | | ([facility]); ESRD on | | | | | | hemodialysis ([facility]); | | | | | | Moderate to severe | | | | | | pulmonary | | | | | | hypertension ([facility]); | | | | | [...] | | | | function ([facility]); | | | | | | Non-compliance; | | | | | | Troponin I above | | | | | | reference range; | | | | | | Anemia in ESRD | | | | | | (end-stage renal | | | | | | disease) ([facility]); At | | | | [...] might be different from t chacha original. [facility] Service: Medicine DISCHARGE SUMMARY Primary Care [...] be evaluated at local emergency room at [facility]. In the ER patient was evaluated [...] transferred with the patient's paper documentation from [facility] ER). Initial labs: WBC 6.5, [...] suggesting of edema. Taken from Dr. Brooks [facility] (11/06/2018) HOSPITAL COURSE Patient was [...] Left; Surgeon: Blake Chavarria MD ; Location: [facility] MAIN OR AV FISTULA REPAIR Left 03/07/2014 Procedure: AV FISTULA - GRAFT REPAIR/REVISION; Surgeon: Rik Simon MD; Location: [facility] IN OR; Service: Vascular; Laterality: Left; biopsy of kidney age 10 DIALYSIS FISTULA CREATION 04/08/2014 Procedure: DIALYSIS CATHETER - INSERTION; Surgeon: Rik Simon MD; Location: [facility] MAIN OR ; Service: Vascular; Laterality: N/A; tunneled catheter.br hemodialysis catheter KIDNEY BIOPSY Left 2003 OTHER SURGICAL HISTORY LAPAROSCOPIC PERITONEAL DIALYSIS CATHETER INSERTION - x2 OTHER SURGICAL HISTORY Right 07/2013 LAPAROSCOPIC PERITONEAL DIALYSIS CATHETER INSERTION - current dialysis access MWF dialysis OTHER SURGICAL HISTORY Left 06/24/2014 SUPERFICIALIZATION OF AV FISTULA - Procedure: AV FISTULA - SUPERFICIALIZATION; Surgeon: Emanuel Simon MD; Location: [facility] MAIN OR; Service: Vascular; Laterality: Left; OTHER SURGICAL HISTORY Left 04/08/2014 AV FISTULA PLACEMENT - Procedure: AV FISTULA; Surgeon: Rik Simon MD; Location: [facility] ENE N OR; Service: Vascular; Laterality: Left; cephalic OTHER SURGICAL HISTORY Left 03/07/2014 DECLOT GRAFT - Procedure: GRAFT - DECLOT; Surgeon: Rik Simon MD; Location: [facility] MAIN OR ; Service: Vascular; [...] Value Units Date/Time Culture, Body Fluid Sterile [[id number]] Collected: 11/07/18 1515 Order Status: Completed Lab Status: Preliminary result Updated: 11/09/18 141 Specimen: Body Fluid from Pleural Fluid, Right Special Requests RIGHT SIDE Special Requests Testing performed at [facility];[address] [place] [address] Gram Stain Result NO CELLS OR ORGANISMS SEEN RESULT NO GROWTH 2 DAYS RESULT Testing performed at [facility], [address] [place] [address] Comment: Testing performed at [facility], [address] [place] [address] Culture, Body Fluid Sterile [[id number]] Order Status: Canceled Lab Status: No result [...] Up: Jonathan Alonso MD [address] [facility] [place] [address] In 1 week René Anguiano MD [address] [facility] [address] [place] [address] In 1 week Discharge took 60 minutes, [...] | | | renal disease) ([facility]) | protocol | | | [...] her sister. DME equipment order sent to [facility]. She refused oxygen delivery to the hospi mary kate saying that she just wanted to go home. Orders state 1L for ambulating only.Electronical ly signed by Daniela Vyas RN at 11/09/2018 15:47 Anival Patten MANAGER STARS - 11/09/2018 124 5 PDT 11/09/18 1244 [...] UF. Hypervolemia has improved with HD/UF/thoracentesis. Acute NC has been ruled out. Recommendations: Plan for [...] for continuity of chart review/care. Dictation software, Headroom, was used which may contain error for [...] Medical Rich dent - 11/08/2018 1305 PDT [facility] Inpatient Progress Note Pt: Dara Louise AGE/SEX: [...] hypervolemic and has recurrent hyperkalemia/metabolic acidosis. Acute NC has been ruled out. Recommendations: Plan for [...] for continuity of chart review/care. Dictation software, Headroom, was used which may contain error for [...] valsartan 40 mg Oral Daily Yefri Andres [facility] dent - 11/07/2018 0725 PDT [facility] Inpatient Progress Note Pt: Dara Louise AGE/SEX: 23 y.o. ROOM: [facility]/8112-01 : 1995 PCP: Jonathan Alonso [...] and dyspnea. The patient was seen at [facility] ER and then transferred to [...] attestation - Darell Kowalski MD - 11/07/2018 3116 PDTAttending: Pt is seen and examined with [...] E | | | | | | [place] [address] | | | | | | [phone] | | | | | | | [...] + | Billie Gupta MD 11/09/2018 9:34 [facility] | | | [facility] Hemo-Dialysis Procedure note Pt is [...] | | . 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 | | | Constitutional: pt appears [...] Testing | 2.3 - 4.8 mg/dL | [facility] | | | | performed at [facility], [address] | | LABORATORY | | | | [address], | | | | | | [place] [address] | | | | + + + + + + + + | Specimen | + + | Blood | + + + + + + + | Performing | Address | City/State/Zipcode | Phone Number | | Organization | | | | + + + + + | [facility] | [address] | [place] [address] | [phone] | + + + + + Comprehensive [...] | | | | | | MDRD IDAL traceable | | | | | | equation.Testing | | | | | | performed at [facility], [address] | | | | | | [facility], | | | | | | [place] [address] | | | | + + + + + + + + | Specimen | + + | Blood | + + + + + + + | Performing | Address | City/State/[facility] | Phone Number | | Organization | | | | + + + + + | [facility] | [address] | [place] [address] | [phone] | + + + + + CBC [...] LABORATORY | | | | performed at [facility], [address] | | | | | | [address], | | | | | | [place] [address] | | | | | | | | | | + + + + + + + + | Specimen | + + | Blood | + + + + + + + | Performing | Address | City/State/Zipcode | Phone Number | | Organization | | | | + + + + + | [facility] | [address] | [place] [address] | [phone] | + + + + + Protime INR (11/09/2018 4:14 PDT) + + + + + + | Component | Value | Ref Range | Performed | Pathologist | | | | | At | Signature | + + + + + + | INR | 1.3Comment: REFERENCE | | [facility] | | | | RANGE:0.9 - | [...] [place];[address] | | | | | | [facility];[place], [place] | | | | | | [address] | | | | + + + + + + + + | Specimen | + + | Blood | + + + + + + + | Performing | Address | City/State/Zipcode | Phone Number | | Organization | | | | + + + + + | [facility] | [address] | [place] [address] | [phone] | + + + + + Comprehensive [...] | | | | | performed at [facility], [address] | | | | | | [facility], | | | | | | [place] [address] | | | | + + + + + + + + | Specimen | + + | Blood | + + + + + + + | Performing | Address | City/State/Zipcode | Phone Number | | Organization | | | | + + + + + | [facility] | [address] | [place] [address] | [phone] | + + + + + CBC [...] | | | | | | at [facility], [address] | | | | | | [facility], | | | | | | [place] [address] | | | | | |Testing performed at [facility], [address] [place] [address] | | | | | | | | | | + + +--- + + + + + | Specimen | + + | Blood | + + + + + + + | Performing | Address | City/State/Zipcode | Phone Number | | Organization | | | | + + + + + | [facility] | [address] | [place] [address] | [phone] | + + + + + Protime INR (11/08/2018 4:47 PDT) + + + + + + | Component | Value | Ref Range | Performed | Pathologist | | | | | At | Signature | + + + + + + | INR | 1.3Comment: REFERENCE | | [facility] | | | | RANGE:0.9 - | [...] | | | | | | [address];[place] | | | | | | [address] | | | | + + + + + + + + | Specimen | + + | Blood | + + + + + + + | Performing | Address | City/State/Zipcode | Phone Number | | Organization | | | | + + + + + | [facility] | [address] [facility] | [place] [address] | [phone] | + + + + + XR [...] is | | | punctured with an 5-Cook Islander thoracentesis catheter. Fluid is aspirated | | [...] the pleural space is punctured with an 5-Cook Islander | | thoracentesis catheter. Fluid is aspirated [...] + + | Performing | Address | City/State/[facility] | Phone Number | | Organization | [...] | | LABORATORY | | | | Blvd;[place] [address] | | | | + + + [...] RESULT | Testing performed at | | [facility] | | | | [facility], [address] [facility] | | LABORATORY | | | | [place], [place] | | | | | | [address]Gxkywxc: Testing | | | | | | performed at [facility], [address] | | | | | | [facility], [place], [place] | | | | | | [address] | | | | + + + + + + + + | Specimen | + + | Body Fluid | + + + + + + + | Performing | Address | City/State/Zipcode | Phone Number | | Organization | | | | + + + + + | [facility] | [address] [facility] | [place] [address] | [phone] | + + + + + Protein, Body Fluid (11/07/2018 15:15 PDT) + + + + + + | Component | Value | Ref Range | Performed | Pathologist | | | | | At | Signature | + + + + + + | Protein, BF | 3.4Comment: This is not | g/dL | [facility] | | | | a note keeper validated | | LABORATORY | | | | sample type for this | | | | | | method. No | | | | | | referenceranges have | | | | | | been established.Testing | | | | | | performed at [facility], [address] | | | | | [address], | | | | | | [place] [address] | | | | + + + + + + | SOURCE | PLEURAL FLUIDComment: | | [facility] | | | | Testing performed at | | LABORATORY | | | | [facility];[address] [place] [address] | | | | | | [address];[place] [address] | | | | + + + + + + + + | Specimen | + + | Body Fluid | + + + + + + + | Performing | Address | City/State/Zipcode | Phone Number | | Organization | | | | + + + + + | [facility] | [address] | [place] [address] | [phone] | + + + + + Lactate dehydrogenase, body fluid (11/07/2018 15:15 PDT) + + + + + + | Component | Value | Ref Range | Performed | Pathologist | | | | | At | Signature | + + + + + + | LDH, BODY | 102Comment: This is not | U/L | [facility] | | | FLUID | a note keeper validated | | LABORATORY | | | | sample type for this | | | | | | method. No | | | | | | referenceranges have | | | | | | been established.Testing | | | | | | performed at [facility], [address] | | | | | | [address] [facility], | | | | | | [place] [address] | | | | + + + + + + + + | Specimen | + + | Body Fluid | + + + + + + + | Performing | Address | City/State/Zipcode | Phone Number | | Organization | | | | + + + + + | [facility] | [address] | [place] [address] | [phone] | + + + + + Glucose, Body Fluid (11/07/2018 15:15 PDT) + + + + + + | Component | Value | Ref Range | Performed | Pathologist | | | | | At | Signature | + + + + + + | Glucose | 96Comment: This is not a | mg/dL | [facility] | | | Fluid | note keeper validated | | LABORATORY | | | | sample type for this | | | | | | method. No | | | | | | referenceranges have | | | | | | been established.Testing | | | | | | performed at [facility], [address] | | | | | [address], | | | | | | [place] [address] | | | | + + + + + + | SOURCE | PLEURAL FLUIDComment: | | [facility] | | | | Testing performed at | | LABORATORY | | | | [facility];[address] | | | | | | [address] [address] | | | | + + + + + + + + | Specimen | + + | Body Fluid | + + + + + + + | Performing | Address | City/State/Zipcode | Phone Number | | Organization | | | | + + + + + | [facility] | [address] | [place] [address] | [phone] | + + + + + Cell [...] + + + | BF RBC | <66920 | /mm3 | [facility] | | | [...] | | | Counted | performed at [facility];[address] | | LABORATORY | | | | [address];[place], [place] | | | | | | [address] | | | | + + + + + + + + | Specimen | + + | Body Fluid | + + + + + + + | Performing | Address | City/State/Zipcode | Phone Number | | Organization | | | | + + + + + | [facility] | [address] | [place] [address] | [phone] | + + + + + Amylase, Body Fluid (11/07/2018 15:15 PDT) + + + + + + | Component | Value | Ref Range | Performed | Pathologist | | | | | At | Signature | + + + + + + | AMYLASE | 46Comment: This is not a | U/L | [facility] | | | FLUID | note keeper validated | | LABORATORY | | | | sample type for this | | | | | | method. No | | | | | | referenceranges have | | | | | | been established.Testing | | | | | | performed at [facility], [address] | | | | | [address], | | | | | | [place] [address] | | | | + + + + + + + + | Specimen | + + | Body Fluid | + + + + + + + | Performing | Address | City/State/Zipcode | Phone Number | | Organization | | | | + + + + + | [facility] | [address] | [place] [address] | [phone] | + + + + + Albumin, Body Fluid (11/07/2018 15:15 PDT) + + + + + + | Component | Value | Ref Range | Performed | Pathologist | | | | | At | Signature | + + + + + + | Albumin, | 2.0Comment: This is not | g/dL | [facility] | | | Fluid | a note keeper validated | | LABORATORY | | | | sample type for this | | | | | | method. No | | | | | | referenceranges have | | | | | | been established.Testing | | | | | | performed at [facility], [address] | | | | | [address], | | | | | | [place] [address] | | | | + + + + + + + + | Specimen | + + | Body Fluid | + + + + + + + | Performing | Address | City/State/Zipcode | Phone Number | | Organization | | | | + + + + + | [facility] | [address] | [place] [address] | [phone] | + + + + + Medical Cytology (11/07/2018 15:15 PDT) + + | Specimen | + + | Body Fluid | + + + + + | Narrative | Performed At | + + + | ORDERING | [facility] | | PHYSICIAN:Dex ALMEIDA, Darell Scott [...] | | | preparation was performed by [facility], [address] | | | [place] [address] (Night Warehouse Selector: Matt Claudio D.O.; | | | CLIA#: [id number]).Professional interpretation was performed by | | | [facility], | | | [place] [address] (Night Warehouse Selector: Daniel Larson M.D.; | | | CLIA#: [id number]).6 Diagnostician: Enrrique Nichols | | | CT([facility])CytotechnologistDiagnostician: Daniel Larson | | | MDPathologistElectronically Signed 11/13/2018 | | |DESCRIPTION: | | |The preparations contain mesothelial cells, rare inflammatory cells, and acellular proteina ceous material. Atypical cytologic findings are not encountered. | | | | | |SPECIMEN ADEQUACY: | | |Satisfactory for Evaluation | | | | | |PERFORMING LABORATORY: | | |Technical preparation was performed by [facility], [address] [place] [address] (Night Warehouse Selector: Matt Claudio D.O.; CLIA#: [id number]). | | |Professional interpretation was performed by [facility], [address] [place] [address] (Night Warehouse Selector: Daniel Larson M.D.; [facility]# : [id number]).6 | | | | | |Diagnostician: Enrrique BROOKS([facility]) | | |Airplane Inspector | | |Diagnostician: Daniel Larson MD | [...] | [facility];[address] [facility] | | | | | | vd;[place] [address] | | | | + + + + + + + + | Specimen | + + | Blood | + + + + + + + | Performing | Address | City/State/Zipcode | Phone Number | | Organization | | | | + + + + + | [facility] | [address] | [place] [address] | [phone] | + + + + + ECG [...] performed at [facility] | | | | | | [address];[place], [place] | | | | | | [address] | | | | + + + + + + + + | Specimen | + + | Blood | + + + + + + + | Performing | Address | City/State/Zipcode | Phone Number | | Organization | | | | + + + + + | [facility] | [address] | [place] [address] | [phone] | + + + + + Platelet Count (11/07/2018 4:03 PDT) + + + + + + | Component | Value | Ref Range | Performed | Pathologist | | | | | At | Signature | + + + + + + | Platelet | 185Comment: Testing | 150 - 400 K/uL | [facility] | | | Count | performed at [address], [address] | | LABORATORY | | | | [address], | | | | | | [place] [address] | | | | + + + + + + + + | Specimen | + + | Blood | + + + + + + + | Performing | Address | City/State/Zipcode | Phone Number | | Organization | | | | + + + + + | [facility] | [address] | [place] [address] | [phone] | + + + + + PTT [...] | LABORATORY | | | | [address];[place] | | | | | | [address] | | | | + + + + + + + + | Specimen | + + | Blood | + + + + + + + | Performing | Address | City/State/Zipcode | Phone Number | | Organization | | | | + + + + + | [facility] | [address] | [place] [address] | [phone] | + + + + + Lactate Dehydrogenase (11/07/2018 4:03 PDT) + + + + + + | Component | Value | Ref Range | Performed | Pathologist | | | | | At | Signature | + + + + + + | LDH TOTAL | 202Comment: Testing | 120 - 246 U/L | [facility] | | | | performed at [facility] | | LABORATORY | | | | [facility];[place], [place] | | | | | | [address] | | | | + + + + + + + + | Specimen | + + | Blood | + + + + + + + | Performing | Address | City/State/Zipcode | Phone Number | | Organization | | | | + + + + + | [facility] | [address] | [place] [address] | [phone] | + + + + + Magnesium (11/07/2018 4:03 PDT) + + + + + + | Component | Value | Ref Range | Performed | Pathologist | | | | | At | Signature | + + + + + + | Magnesium | 2.3Comment: Testing | 1.7 - 2.4 mg/dL | [facility] | | | | performed at [facility];[address] | | LABORATORY | | | | [address];[place] | | | | | | [address] | | | | + + + + + + + + | Specimen | + + | Blood | + + + + + + + | Performing | Address | City/State/Zipcode | Phone Number | | Organization | | | | + + + + + | [facility] | [address] | [place] [address] | [phone] | + + + + + Comprehensive [...] | | | | | | MDRD IDAL traceable | | | | | | equation.Testing | | | | | | performed at [facility], [address] | | | | | | [facility], | | | | | | [place] [address] | | | | + + + + + + + + | Specimen | + + | Blood | + + + + + + + | Performing | Address | City/State/Zipcode | Phone Number | | Organization | | | | + + + + + | [facility] | [address] | [place] [address] | [phone] | + + + + + Troponin I (11/06/2018 21:54 PDT) + + + + + + | Component | Value | Ref Range | Performed | Pathologist | | | | | At | Signature | + + + + + + | Troponin I | 0.045 (H)Comment: 0.04 | 0.00 - 0.04 | [facility] | | | | ng/mL or | [...] | | [facility];[address] [place] [address] | | | | | | [facility];[place] [address] | | | | + + + + + + + + | Specimen | + + | Blood | + + + + + + + | Performing | Address | City/State/Zipcode | Phone Number | | Organization | | | | + + + + + | [facility] | [address] | [place] [address] | [phone] | + + + + + Protime INR (11/06/2018 17:32 PDT) + + + + + + | Component | Value | Ref Range | Performed | Pathologist | | | | | At | Signature | + + + + + + | INR | 1.3Comment: REFERENCE | | [facility] | | | | RANGE:0.9 - | [...] | | | | | [address];[place] | | | | | | [address] | | | | + + + + + + + + | Specimen | + + | Blood | + + + + + + + | Performing | Address | City/State/Zipcode | Phone Number | | Organization | | | | + + + + + | [facility] | [address] | [place] [address] | [phone] | + + + + + ECHO [...] [address] | | | | | | [address];[place] [address] | | | | + + + + + + + + | Specimen | + + | Blood | + + + + + + + | Performing | Address | City/State/Zipcode | Phone Number | | Organization | | | | + + + + + | [facility] | [address] | [place] [address] | [phone] | + + + + + Magnesium (11/06/2018 15:57 PDT) + + + + + + | Component | Value | Ref Range | Performed | Pathologist | | | | | At | Signature | + + + + + + | Magnesium | 2.4Comment: Testing | 1.7 - 2.4 mg/dL | [facility] | | | | performed at [facility], [address] | | LABORATORY | | | | [address], | | | | | | [place] [address] | | | | + + + + + + + + | Specimen | + + | Blood | + + + + + + + | Performing | Address | City/State/Zipcode | Phone Number | | Organization | | | | + + + + + | [facility] | [address] | [place] [address] | [phone] | + + + + + documented [...] | + + | ESRD on hemodialysis ([facility]) End stage renal disease | [...]
--- OUTSIDE RECORDS SUMMARY | ~2019-01-06 | XMS | Encounter Summary ---
Demographics + + + | Address | [address] | | | [place] [address] | + + + | Home Phone [...] | | | | | [place] [address] | | + + + + + | Thania Mallory | ECON | [address] | | | | | [place] [address] | | + + + + + | Deidra Weldon | ECON | [address] | | | | | [place] | | | | | [address] | | + + + + + Care Team Providers + +------+ + | Care Bobbin Disker Name | Role | Phone | + [...] Work | | 2012 | on | Coordinators [address] | [address] | Transplant | | | | [address] [place] | [address] [facility] [address] | Evaluation | | | | Rd [place], [place] | [place], [place] | | | | | [address] | [address] | | | | | [phone] | | | +--------+ + + + [...] Denise | | | | | | [place] | | | | | | [address] | | | | | | [phone] | | | | | | | | +--------+ + + + + documented as of this encounter Visit Diagnoses Not on filedocumented in this encounter"
--- OUTSIDE RECORDS SUMMARY | ~2019-01-06 | XMS | Encounter Summary ---
Demographics + + + | Address | [address] | | | [place] [address] | + + + | Home Phone [...] | | | | | [place] [address] | | + + + + + | Thania Mallory | ECON | [address] | | | | | [place] [address] | | + + + + + | Deidra Weldon | ECON | [address] | | | | | [place] | | | | | [address] | | + + + + + Care Team Providers + +------+ + | Care Roadway Technician Name | Role | Phone | [...] | 2013 | | Coordinators [address] | [place], [place] | Update | | | | [address] [facility] | [address] | | | | | Rd [place], [place] | | | | | | [address] | | | | | | [phone] | | | +--------+ + + + [...] Denise | | | | | | [place], [place] | | | | | | [address] | | | | | | [phone] | | | | | | | | +--------+ + + + + documented as of this encounter Visit Diagnoses Not on filedocumented in this encounter"
--- OUTSIDE RECORDS SUMMARY | ~2019-01-06 | XMS | Encounter Summary ---
Demographics + + + | Address | [address] | | | [place] [address] | + + + | Home Phone [...] | | | | | [place] [address] | | + + + + + | Thania Mallory | ECON | [address] | | | | | [place] [address] | | + + + + + | Deidra Weldon | ECON | [address] | | | | | [place] | | | | | [address] | | + + + + + Care Team Providers + +------+ + | Care Body Artist Name | Role | Phone | [...] Update | | | | ANNALISA Hoffmann [facility] | [facility] | | | | | [place], [place] | [place], [place] | | | | | [address] | [address] | | | | | [phone] | [phone] | | | | | | | [...] Denise | | | | | | [place], [place] | | | | | | [address] | | | | | | [phone] | | | | | | | | +--------+ + + + + documented as of this encounter Visit Diagnoses Not on filedocumented in this encounter"
--- OUTSIDE RECORDS SUMMARY | ~2019-01-06 | XMS | Encounter Summary ---
Demographics + + + | Address | [address] | | | [place] [address] | + + + | Home Phone [...] | | | | | [place] [address] | | + + + + + | Thania Mallory | ECON | [address] | | | | | [place] [address] | | + + + + + | Deidra Weldon | ECON | [address] | | | | | [place] | | | | | [address] | | + + + + + Care Team Providers + +------+ + | Care Automotive Internet Sales Consultant Name | Role | Phone | [...] Mailcode: | | | | | | [address] | [address] | | | | | | [address] | [place] | | | | | | [place], | [place], [place] | | | | | | [place] | [address] | | | | | | [address] | Phone: | | | | | | Phone: | [phone] | | | | | | [phone] | | | | | | | Fax: | | | | | | | [phone] | | +--------+--------+ + + + + Encounter Details +--------+---------+ + + + | Date | Type | Department | Care Team | Description | +--------+---------+ + + + | 05/24/ | Office | Specialty Clinics | Sudhakar Joy | HSP | | 2017 | Visit | at [facility] [address] | 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 Her adult pet care attendant could refer her to adult transplant when [...] MD [facility] [address] Mail code [facility] [place], [place] [id number] documented in this encounter Plan of Treatment +--------+ + + + + | Date | Type | Specialty | Care Team | Description | +--------+ + + + + | 05/04/ | Hospital | Adult Acute Care | El Starr MD | | | 2022 | Encounter | | [address] | | | | | | [place], [place] | | | | | | [address] | | | | | | [phone] | | | | | | | [...]
--- OUTSIDE RECORDS SUMMARY | ~2019-01-06 | XMS | Encounter Summary ---
Demographics + + + | Address | [address] | | | [place] [address] | + + + | Home Phone [...] | | | | | [place] [address] | | + + + + + | Thania Mallory | ECON | [address] | | | | | [place] [address] | | + + + + + | Deidra Weldon | ECON | [address] | | | | | [place] | | | | | [address] | | + + + + + Care Team Providers + +------+ + | Care Milling Operator Name | Role | Phone | + +------+ + | Jonathan Alonso MD | PCP | | + +------+ + Encounter Details +--------+ + + + + | Date | Type | Department | Care Team | Description | +--------+ + + + + | 07/14/ | Abstract | Transplant | Jesus Edmond, | | | 2017 | | Coordinators [address] | [address] | | | | | ANNALISA Hoffmann [facility] | [address] | | | | | [place], [place] | [place], [place] | | | | | [address] | [address] | | | | | [phone] | [phone] | | | | | | | [...] | | | | | | [place], [place] | | | | | | [address] | | | | | | [phone] | | | | | | | | +--------+ + + + + documented as of this encounter Visit Diagnoses Not on filedocumented in this encounter"
--- OUTSIDE RECORDS SUMMARY | ~2019-01-06 | XMS | Encounter Summary ---
Demographics + + + | Address | [address] | | | [place] [address] | + + + | Home Phone [...] | | | | | [place] [address] | | + + + + + | Thania Mallory | ECON | [address] | | | | | [place] [address] | | + + + + + | Deidra Weldon | ECON | [address] | | | | | [place] | | | | | [address] | | + + + + + Care Team Providers + +------+ + | Care Certified Adapted Physical Educator Name | Role | Phone | [...] | | | | [facility] | [place], [place] | | | | | [address] | [address] | | | | | [address] Mailcode: | [phone] | | | | | [address] | | | | | | [place], [place] | | | | | | [address] | | | | | | [phone] | | | +--------+ + + + [...] Denise | | | | | | [place], [place] | | | | | | [address] | | | | | | [phone] | | | | | | | | +--------+ + + + + documented as of this encounter Visit Diagnoses Not on filedocumented in this encounter"
--- OUTSIDE RECORDS SUMMARY | ~2019-01-06 | XMS | Encounter Summary ---
Demographics + + + | Address | [address] | | | [place] [address] | + + + | Home Phone [...] | | | | | [place] [address] | | + + + + + | Thania Mallory | ECON | [address] | | | | | [place] [address] | | + + + + + | Deidra Weldon | ECON | [address] | | | | | [place] | | | | | [address] | | + + + + + Care Team Providers + +------+ + | Care Rubber Printing Machine Operator Name | Role | Phone [...] [address] | | | | | ([facility]) | [address] | Rd [place], | | | | | Allergic | [place], [place] | [place] | | | | | purpura | [address] | [address] | | | | | ([facility]) | Phone: | Phone: | | | | | | [phone] | [phone] | | | | | | Fax: | Fax: | | | | | | [phone] | [phone] | +--------+--------+ + + + + Encounter Details +--------+ + + + + | Date | Type | Department | Care Team | Description | +--------+ + + + + | 12/20/ | Hospital | Radiology at [facility] | | | | 2012 | Encounter | [address] | | | | | | [address] Mailcode: | | | | | | [address] | | | | | | [place], [place] | | | | | | [address] | | | | | | [phone] | | | +--------+ + + + [...] Denise | | | | | | [place], [place] | | | | | | [address] | | | | | | [phone] | | | | | | | [...] + +---------+ + + | 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
--- OUTSIDE RECORDS SUMMARY | ~2019-01-06 | XMS | Encounter Summary ---
Demographics + + + | Address | [address] | | | [place] [address] | + + + | Home Phone [...] | | | | | [place] [address] | | + + + + + | Thania Mallory | ECON | [address] | | | | | [place] [address] | | + + + + + | Deidra Weldon | ECON | [address] | | | | | [place] | | | | | [address] | | + + + + + [...] + + | 03/04/ | Documentati | Transplant | Kelsi Martinez, | Transplant Form | | 2012 | on | Coordinators [address] | RN [address] | Update | | | | [facility] | [facility] | | | | | Rd [place], [place] | [place], [place] | | | | | [address] | [address] | | | | | [phone] | | | +--------+ + + + [...] [place] | | | | | | [address] | | | | | | [phone] | | | | | | | | +--------+ + + + + documented as of this encounter Visit Diagnoses Not on filedocumented in this encounter"
--- OUTSIDE RECORDS SUMMARY | ~2019-01-06 | XMS | Encounter Summary ---
Demographics + + + | Address | [address] | | | [place] [address] | + + + | Home Phone [...] | | | | | [place] [address] | | + + + + + | Thania Mallory | ECON | [address] | | | | | [place] [address] | | + + + + + | Deidra Weldon | ECON | [address] | | | | | [place] | | | | | [address] | | + + + + + Care Team Providers + +------+ + | Care Chemistry Intern Name | Role | Phone | [...] | VERIFICATION) | | | | [facility] | [facility] | | | | | Rd [place], [place] | [place], [place] | | | | | [address] | [address] | | | | | [phone] | | | +--------+ + + + [...] Denise | | | | | | [place] | | | | | | [address] | | | | | | [phone] | | | | | | | | +--------+ + + + + documented as of this encounter Visit Diagnoses Not on filedocumented in this encounter"
--- OUTSIDE RECORDS SUMMARY | ~2019-01-06 | XMS | Encounter Summary ---
Demographics + + + | Address | [address] | | | [place] [address] | + + + | Home Phone [...] | | | | | [place] [address] | | + + + + + | Thania Mallory | ECON | [address] | | | | | [place] [address] | | + + + + + | Deidra Weldon | ECON | [address] | | | | | [place] | | | | | [address] | | + + + + + Care Team Providers + +------+ + | Care Golf Superintendent Name | Role | Phone | [...] (Immunizations) | | | | ANNALISA Hoffmann [facility] | [facility] | | | | | Rd [place], [place] | [place], [place] | | | | | [address] | [address] | | | | | [phone] | | | +--------+ + + + [...] Denise | | | | | | [place], [place] | | | | | | [address] | | | | | | [phone] | | | | | | | | +--------+ + + + + documented as of this encounter Visit Diagnoses Not on filedocumented in this encounter"
--- OUTSIDE RECORDS SUMMARY | ~2019-01-06 | XMS | Encounter Summary ---
Demographics + + + | Address | [address] | | | [place] [address] | + + + | Home Phone [...] | | | | | [place] [address] | | + + + + + | Thania Mallory | ECON | [address] | | | | | [place] [address] | | + + + + + | Deidra Weldon | ECON | [address] | | | | | [place] | | | | | [address] | | + + + + + Care Team Providers + +------+ + | Care Putty Patcher Name | Role | Phone | + +------+ + | Shahid Camargo MD | PCP | | + +------+ + Reason for Visit +--------+ + | Reason | Comments | +--------+ + | Other | Requested [id number] | +--------+ + Encounter Details +--------+ + + + + | Date | Type | Department | Care Team | Description | +--------+ + + + + | 11/15/ | Telephone | Transplant | Jesus Edmond, | Other (Requested | | 2012 | | Coordinators [address] | [address] | [id number]) | | | | ANNALISA Hoffmann [facility] | [facility] | | | | | [place], [place] | [place], [place] | | | | | [address] | [address] | | | | | [phone] | [phone] | | | | | | | [...] Denise | | | | | | [place], [place] | | | | | | [address] | | | | | | [phone] | | | | | | | | +--------+ + + + + documented as of this encounter Visit Diagnoses Not on filedocumented in this encounter"
--- OUTSIDE RECORDS SUMMARY | ~2019-01-06 | XMS | Encounter Summary ---
Demographics + + + | Address | [address] | | | [place] [address] | + + + | Home Phone [...] | | | | | [place] [address] | | + + + + + | Thania Mallory | ECON | [address] | | | | | [place] [address] | | + + + + + | Deidra Weldon | ECON | [address] | | | | | [place] | | | | | [address] | | + + + + + Care Team Providers + +------+ + | Care Human Resources Operations Manager Name | Role | Phone [...] Update | | | | ANNALISA Hoffmann [facility] | [facility] [address] | | | | | [place], [place] | [place], [place] | | | | | [address] | [address] | | | | | [phone] | [phone] | | | | | | | [...] Denise | | | | | | [place] | | | | | | [address] | | | | | | [phone] | | | | | | | | +--------+ + + + + documented as of this encounter Visit Diagnoses Not on filedocumented in this encounter"
--- OUTSIDE RECORDS SUMMARY | ~2019-01-06 | XMS | Encounter Summary ---
Demographics + + + | Address | [address] | | | [place] [address] | + + + | Home Phone [...] | | | | | [place] [address] | | + + + + + | Thania Mallory | ECON | [address] | | | | | [place] [address] | | + + + + + | Deidra Weldon | ECON | [address] | | | | | [place] | | | | | [address] | | + + + + + Care Team Providers + +------+ + | Care Matrix Inspector Name | Role | Phone | [...] | | | | | ANNALISA Hoffmann [facility] | [facility], | | | | | [place], [place] | [place] [address] | | | | | [address] | | | | | | [phone] | | | +--------+ + + + [...] | | | | | [place] | | | | | | [address] | | | | | | [phone] | | | | | | | | +--------+ + + + + documented as of this encounter Visit Diagnoses Not on filedocumented in this encounter"
--- OUTSIDE RECORDS SUMMARY | ~2019-01-06 | XMS | Encounter Summary ---
Demographics + + + | Address | [address] | | | [place] [address] | + + + | Home Phone [...] | | | | | [place] [address] | | + + + + + | Thania Mallory | ECON | [address] | | | | | [place] [address] | | + + + + + | Deidra Weldon | ECON | [address] | | | | | [place] | | | | | [address] | | + + + + + Care Team Providers + +------+ + | Care Wrecking Crane Engine Operator Name | Role | Phone | [...] Shun | | | | | ANNALISA [facility] | [facility] | | | | | Rd [place], [place] | [place], [place] | | | | | [address] | [address] | | | | | [phone] | | | +--------+ + + + [...] [place] | | | | | | [address] | | | | | | [phone] | | | | | | | | +--------+ + + + + documented as of this encounter Visit Diagnoses Not on filedocumented in this encounter"
--- OUTSIDE RECORDS SUMMARY | ~2019-01-06 | XMS | Encounter Summary ---
Demographics + + + | Address | [address] | | | [place] [address] | + + + | Home Phone [...] + | Author | [facility] | | | and Josephana | + + + | Organization | [facility] | | [...] Team Providers + +------+ + | Care Integrity Consultant Name | Role | Phone | [...] + + | 12/10/ | Hospital | [facility] | Rayray Powers MD | Sepsis, due to | | 2019 - | Encounter | [facility] | [address] | unspecified | | | | CARE [address]LO[address] | [place], [place] | organism, | | 12/14/ | | [address] | [address] | unspecified whether | | 2019 | | [place], [place] | [phone] | acute organ | | | | [address] | | dysfunction present | | | | [phone] | Lee Harris MD | ([facility]) (Primary Dx); | | | | | [address] | Pneumonia of right | | | | | [place] [address] | lower lobe due to | | | | | [phone] | infectious organism | | | | | | ([facility]); Hypoxia; | | | | | Jw Neri, DO [address] | Hypervolemia, | | | | | [address] | unspecified | | | | | [place] [address] | hypervolemia type; | | | | | [phone] | ESRD on dialysis | | | | | | ([facility]); Hyperkalemia; | | | | | | Acute on chronic | | | | | | respiratory failure | | | | | | with hypoxia and | | | | | | hypercapnia ([facility]); | | | | | | Acute respiratory | | | | | | failure with hypoxia | | | | | | ([facility]); Anemia in | | | | | | ESRD (end-stage | | | | | | renal disease) | | | | | | ([facility]); At high risk | | | | | | for electrolyte | | | | | | imbalance; Awaiting | | | | | | organ transplant | | | | | | status; 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 | | | | | | failure ([facility]); | | | | | | Chronic right-sided | | | | | | heart failure ([facility]); | | | | | | 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 | | | | | | ([facility]); ESRD on | | | | | | hemodialysis ([facility]); | | | | | | History [...] | | | | | | function ([facility]); | | | | | | Moderate to severe | | | | | | pulmonary | | | | | | hypertension ([facility]); | | | | | | Low grade fever; | | | | | | Noncompliance of | | | | | | patient with renal | | | | | | dialysis ([facility]); | | | | | | Pleural [...] | Body Mass Index | 21.93 | 12/12/20181401 PDT | + + + + documented [...] Discharge Summaries Jw Neri DO - 12/31/2018 0505 PDTFormatting of this note might be different from the or iginal. [facility] Service: Hospitalist Physician Discharge Summary Patient ID: Dara Weldon 1995 23 y.o. Admit date: 12/10/2018 Discharge date: 12/14/2018 Admitting Physician: Lee Mckeon Ma, MD Discharge Physician: Jw Neri DO Consultants: Treatment Team: Cliff Duarte MD; Reno Dutat MD Primary Discharge Diagnoses: Principal Problem: Acute [...] found to be stable and when ready pa joy was discharged home. Discussion was had with patient about treatment, and need for fol low up. She demonstrated understanding and was subsequently discharged home. Past Medical History: Past Medical History: Diagnosis Date Asthma Bacteremia due to Gram-positive bacteria 12/12/2018 Clotted dialysis access ([facility]) 2014 Congestive heart failure (HCC) ESRD (end stage renal disease) ([facility]) HSP (Henoch-Schonlein purpura) nephritis ([facility]) 1988 Hypertension Pericardial effusion without cardiac tamponade 11/07/2018 Past Surgical History: Procedure Laterality Date ABDOMEN SURGERY AV FISTULA REPAIR 02/24/2014 LEFT Radical Cephalic Fistula Creation; Laterality: Left; Surgeon: Blake Chavarria MD ; Location: [facility] MA[facility] OR AV FISTULA REPAIR Left 03/07/2014 Procedure: AV FISTULA - GRAFT REPAIR/REVISION; Surgeon: Rik Simon MD; Location: [facility] OR; Service: Vascular; Laterality: Left; biopsy of kidney age 10 DIALYSIS FISTULA CREATION 04/08/2014 Procedure: DIALYSIS CATHETER - INSERTION; Surgeon: Rik Simon MD; Location: [facility] OR ; Service: Vascular; Laterality: N/A; tunneled catheter.br hemodialysis catheter KIDNEY BIOPSY Left 2003 OTHER SURGICAL HISTORY LAPAROSCOPIC PERITONEAL DIALYSIS CATHETER INSERTION - x2 OTHER SURGICAL HISTORY Right 07/2013 LAPAROSCOPIC PERITONEAL DIALYSIS CATHETER INSERTION - current dialysis access MWF dialysis OTHER SURGICAL HISTORY Left 06/24/2014 SUPERFICIALIZATION OF AV FISTULA - Procedure: AV FISTULA - SUPERFICIALIZATION; Surgeon: Emanuel Simon MD; Location: [facility] OR; Service: Vascular; Laterality: Left; OTHER SURGICAL HISTORY Left 04/08/2014 AV FISTULA PLACEMENT - Procedure: AV FISTULA; Surgeon: Rik Simon MD; Location: [facility]; Service: Vascular; Laterality: Left; cephalic OTHER SURGICAL HISTORY Left 03/07/2014 DECLOT GRAFT - Procedure: GRAFT - DECLOT; Surgeon: Rik Simon MD; Location: [facility] ; Service: Vascular; Laterality: Left; peritoneal [...] hours. No results for input(s): PHART, PO2ART, WSO0OIP, Z5GICSHJ, BEART in the last 168 hours. No results for input(s): APTT, INR, PTT in the last 168 hours. No results for input(s): TSH in the last 168 hours. Invalid input(s): T3FREE, FREET4 No results for input(s): TROPONINT in the last 168 hours. Invalid input(s): CKTOTAL, TROPONINI, CKMBINDEX Disposition: home No discharge procedures on file. Follow up: Jonathan Alonso MD [address] [place] [address] Schedule an appointment as soon as possible for a visit hospital follow up Jojre Camp, DO [address], [address] [place] [address] Schedule an appointment as soon as possible [...] and dictation of summary. documented in this encounter Discharge Instructions AttachmentsThe following attachments cannot be sent through Care Everywhere.Bacteremia, Leti pected (Adult) (Armenian)documented in this encounter Medications at [...] | | | | | renal disease) ([facility]) | protocol | | | | | [...] Progress Notes Reno Yanes MD - 12/14/2018 1016 PDTFormatting of this note might be diff erent from the original. [facility] Service: Infectious Diseases Progress Note Hospital [...] WC Continuous Infusions: heparin 400 Units/hr (12/12/18 0827) PRN Meds:.acetaminophen, albumin, albuterol-ipratropium, nitroglycerin, ondansetron, oxyCOD [...] Procedure Component Value Units Date/Time Culture, Blood [[id number]] Collected: 12/12/18 1943 Order Status: Canceled Lab Status: No result Specimen: Peripheral Blood Culture, Body Fluid Sterile [[id number]] Order Status: No result Lab Status: No result Specimen: Body Fluid from Pleural Fluid, Right Culture, Blood [[id number]] Collected: 12/12/18 0502 Order Status: Completed Lab Status: Preliminary result Updated: 12/13/18 1324 Specimen: Peripheral Blood Special Requests RWRIST Special Requests Testing performed at [facility];[address] [place] [address] RESULT NO GROWTH AT THIS TIME RESULT Testing performed at [facility], [address] [place] [address] Comment: Testing performed at [facility], [address] [place] [address] Influenza A and B RNA, NAAT [[id number]] Collected: 12/11/18 1556 Order Status: Completed Lab Status: Final result Updated: 12/11/18 1619 Influenza A NEGATIVE Influenza B NEGATIVE Comment: Testing performed by Molecular Methodology Testing performed at [facility];[address] [place] [address] Flu Swab Collection [[id number]] Collected: 12/11/18 1546 Order Status: Completed Lab Status: Final result Updated: 12/11/18 1549 Specimen: Tissue from Nasopharynx Collection SPECIMEN RECEIVED IN LAB Comment: Testing performed at [facility];[address] [place] [address] Culture, Blood [[id number]] Collected: 12/11/18 0615 Order Status: Completed Lab Status: Preliminary result Updated: 12/12/18 1134 Specimen: Peripheral Blood Special Requests RAC Special Requests Testing performed at [facility];[address] [place] [address] RESULT NO GROWTH AT THIS TIME RESULT Testing performed at [facility], [address] [place] [address] Comment: Testing performed at [facility], [address] [place] [address] Culture, Blood [[id number]] (Abnormal) Collected: 12/10/18 2343 Order Status: Completed Lab Status: Final result Updated: 12/13/18 1009 Specimen: Blood from Line Gram Stain Result -- GRAM POSITIVE COCCI IN CLUSTERS SEEN IN AEROBIC BOTTLE SEEN IN ANAEROBIC BOTTLE Gram Stain Result -- SMEAR RESULTS CALLED TO AND READ BACK BY: Brigitte CARTER 6RDerick @ 3302 12/11/18 CDS RESULT STAPHYLOCOCCUS SPECIES, COAGULASE NEGATIVE RESULT GROWTH IN TWO OF TWO BOTTLES RESULT -- TIME TO DETECTION: 0.69 DAYS RESULT POSSIBLE CONTAMINANT, CLINICAL CORRELATION REQUIRED. RESULT Testing performed at [facility], [address] [place] [address] Comment: Testing performed at [facility], [address] [place] [address] Microbiology Results (72 hrs) Procedure Component Value Units Date/Time Culture, Blood [[id number]] Collected: 12/12/18 0502 Order Status: Completed Lab Status: Preliminary result Updated: 12/13/18 1324 Specimen: Peripheral Blood Special Requests RWRIST Special Requests Testing performed at [facility];[address] [place] [address] RESULT NO GROWTH AT THIS TIME RESULT Testing performed at [facility], [address] [place] [address] Comment: Testing performed at [facility], [address] [place] [address] Influenza A and B RNA, NAAT [[id number]] Collected: 12/11/18 1556 Order Status: Completed Lab Status: Final result Updated: 12/11/18 1619 Influenza A NEGATIVE Influenza B NEGATIVE Comment: Testing performed by Molecular Methodology Testing performed at [facility];[address] [place] [address] Flu Swab Collection [[id number]] Collected: 12/11/18 1546 Order Status: Completed Lab Status: Final result Updated: 12/11/18 1549 Specimen: Tissue from Nasopharynx Collection SPECIMEN RECEIVED IN LAB Comment: Testing performed at [facility];[address] [place] [address] IMAGING: No new images for review today. [...] Reno Thacker MD, MPH Infectious Diseases 12/14/18 andon, Anuj carpio MD - 12/13/2018 1900 PDT [id number]/6602-03 Hospital Day: LOS: 2 days She had [...] was completed later after rounds. Dictation software, [employer], was used which may contain error for [...] mg Oral TID WC heparin 400 Units/hr (12/12/18826) Dr. Gupta will assume nephrology care as of 8 PM tonight. Jw Santos, DO - 019 1442 PDT [facility] Service: Hospitalist Progress Note Pt: Dara Weldon AGE/SEX: 23 y.o. female : 1995 ROOM: [facility]/6612-01 TODAY'S DATE: 12/13/2018 Hospital Day: LOS: 2 [...] 12/12/18 1402 70.3 kg (155 lb) 12/10/18 221 70.7 kg (155 lb 13.8 oz) Hemodynamics [...] PASP is 73 mmHg - Baseline weight [id number]. In acute exacerbation - HD per nephrology [...] 12/13/2018 14:42 Reno Saeed MD - 12/13/2018 1132 PDT [facility] Service: Infectious Diseases Progress Note Hospital [...] Consult Continuous Infusions: heparin 400 Units/hr (12/12/18 08) [...] Procedure Component Value Units Date/Time Culture, Blood [[id number]] Collected: 12/12/18 194 Order Status: Canceled Lab Status: No result Specimen: Peripheral Blood Culture, Body Fluid Sterile [[id number]] Order Status: No result Lab Status: No result Specimen: Body Fluid from Pleural Fluid, Right Culture, Blood [[id number]] Collected: 12/12/18 0502 Order Status: Sent Lab Status: In process Updated: 12/12/18 1005 Specimen: Peripheral Blood Influenza A and B RNA, NAAT [[id number]] Collected: 12/11/18 1556 Order Status: Completed Lab Status: Final result Updated: 12/11/18 1619 Influenza A NEGATIVE Influenza B NEGATIVE Comment: Testing performed by Molecular Methodology Testing performed at [facility];[address] [place] [address] Flu Swab Collection [[id number]] Collected: 12/11/18 1546 Order Status: Completed Lab Status: Final result Updated: 12/11/18 1549 Specimen: Tissue from Nasopharynx Collection SPECIMEN RECEIVED IN LAB Comment: Testing performed at [facility];[address] [place] [address];[place] [address] Culture, Blood [[id number]] Collected: 12/11/18 0615 Order Status: Completed Lab Status: Preliminary result Updated: 12/12/18 1134 Specimen: Peripheral Blood Special Requests RAC Special Requests Testing performed at [facility];[address] [place] [address] RESULT NO GROWTH AT THIS TIME RESULT Testing performed at [facility], [address] [place] [address] Comment: Testing performed at [facility], [address] [place] [address] Culture, Blood [[id number]] (Abnormal) Collected: 12/10/18 2343 Order Status: Completed Lab Status: Final result Updated: 12/13/18 1009 Specimen: Blood from Line Gram Stain Result -- GRAM POSITIVE COCCI IN CLUSTERS SEEN IN AEROBIC BOTTLE SEEN IN ANAEROBIC BOTTLE Gram Stain Result -- SMEAR RESULTS CALLED TO AND READ BACK BY: Brigitte CARTER 6RP @ 185 12/11/18 CDS RESULT STAPHYLOCOCCUS SPECIES, COAGULASE NEGATIVE RESULT GROWTH IN TWO OF TWO BOTTLES RESULT -- TIME TO DETECTION: 0.69 DAYS RESULT POSSIBLE CONTAMINANT, CLINICAL CORRELATION REQUIRED. RESULT Testing performed at [facility], [address] [place] [address] Comment: Testing performed at [address] [address] Microbiology Results (72 hrs) Procedure Component Value Units Date/Time Culture, Blood [[id number]] Collected: 12/12/18 0502 Order Status: Sent Lab Status: In process Updated: 12/12/18 1005 Specimen: Peripheral Blood Influenza A and B RNA, NAAT [[id number]] Collected: 12/11/18 1556 Order Status: Completed Lab Status: Final result Updated: 12/11/18 1619 Influenza A NEGATIVE Influenza B NEGATIVE Comment: Testing performed by Molecular Methodology Testing performed at [facility];[address] [place] [address] Flu Swab Collection [[id number]] Collected: 12/11/18 1546 Order Status: Completed Lab Status: Final result Updated: 12/11/18 1549 Specimen: Tissue from Nasopharynx Collection SPECIMEN RECEIVED IN LAB Comment: Testing performed at [facility];[address] [place] [address] Culture, Blood [[id number]] Collected: 12/11/18 0615 Order Status: Completed Lab Status: Preliminary result Updated: 12/12/18 1134 Specimen: Peripheral Blood Special Requests RAC Special Requests Testing performed at [facility];[address] [place] [address] RESULT NO GROWTH AT THIS TIME RESULT Testing performed at [address] [address] Comment: Testing performed at [facility], [address] [place] [address] [place] [address] Culture, Blood [[id number]] (Abnormal) Collected: 12/10/18 2343 Order Status: Completed Lab Status: Final result Updated: 12/13/18 1009 Specimen: Blood from Line Gram Stain Result -- GRAM POSITIVE COCCI IN CLUSTERS SEEN IN AEROBIC BOTTLE SEEN IN ANAEROBIC BOTTLE Gram Stain Result -- SMEAR RESULTS CALLED TO AND READ BACK BY: Brigitte CARTER 6RP @ 4865 12/11/18 CDS RESULT STAPHYLOCOCCUS SPECIES, COAGULASE NEGATIVE RESULT GROWTH IN TWO OF TWO BOTTLES RESULT -- TIME TO DETECTION: 0.69 DAYS RESULT POSSIBLE CONTAMINANT, CLINICAL CORRELATION REQUIRED. RESULT Testing performed at [facility], [address] [place] [address] Comment: Testing performed at [facility], [address] [place] [address] IMAGING: No new images for review today. [...] Reno Thacker MD, MPH Infectious Diseases 12/13/18 Tatiana King PharmD - 12/13/2018 1022 PDTFormatting of this note might be different from the or iginal. Clinical Pharmacy Note: Pharmacy Dosing Vancomycin; Day [...] dialysis today. Sulma Raza RPh 12/13/2018 10:21 Cliff Pozo MD - 12/12/2018 1518 PDT 6612/6612-01 Hospital Day: LOS: 1 day [...] was completed later after rounds. Dictation software, [employer], was used which may contain error for [...] sevelamer carbonate 1,600 mg Oral TID WC [START ON 12/13/2018] vancomycin 750 mg Intravenous See Admin Instructions vancomycin 25 mg/kg Intravenous Once vancomycin per pharmacy Other Pharmacy Consult heparin 400 Units/hr (12/12/18 0827) Vida Whittaker RPH - 11/2018 2451 PDTClinical Pharmacy Note: Vancomycin Day 1 Referring [...] accordingly. VIDA ANDERSEN RP, Pharmacist 12/12/2018 13:33 Lee Aguirre MD - 12/12/2018 0826 PDT [facility] Adult Hospitalist Progress Note Hospital Day: 1 [...] patient: Lee Jimenes Ma, MD 8:29 12/12/2018 aylor Mcnair [facility] - 10/2018 1946 PDT Clinical Pharmacy Note: Piperacillin-Tazobactam (Zosyn) Extended [...] MCNAIR RPH 19:31 12/11/2018 Pharmacist Leonard Jacobsen RN - 12/11/2018 1613 PDTPatient vital signs stable. 2.5 liters off via hemodialysis. See hemod ialysis notes. She is very sleepy. Zofran 4 mg iv given for nausea. Ultram 50 mg po given for abdominal pain. She remains on 3 liters oxygen via nasal canula. End of shift chart review complete. Electronically signed by Leonard Garay RN at 12/11 16:15 Conner Carmona, JEANNINE - 12/11/2018 0133 PDTCpap started and abg done as orde red. Pt somnolent but awakens easily and follows [...] [address] | | | | | | [place] [address] | | | | | | [phone] | | | | | | | | +--------+---------+ + + + + +--------+ + + | Name | Priori | Associated Diagnoses | Date/Time | | | ty | | | + +--------+ + + | ED INFORMATION EXCHANGE | Routin | | 12/10/2018 22:01 PDT | | | e | | | + +--------+ + + + +--------+ + + | Name | Priori | Associated Diagnoses | Order Schedule | | | ty | | | + +--------+ + + | Medical Cytology | Routin | | One Time for 1 | | | e | | Occurrences starting | | | | | 12/12/2018 | + +--------+ + + documented as [...] | | | 2018 | | | 2201 | | | PDT | | | [...] R?MRN: | | | | | | [id number] | | | [id number] | | | riteri | | | [...] | | | St. | | | [place] | | | y | | [...] | | | St. | | | [place] | | | y | | | Hospit | | | alDr | | | [facility] | | | ey has | | | not | | | seen | | | Pt | | | since | | | 4/5/20 | | | 19. | | | //20 | | | 19 Pt | | [...] | | | St. | | | [place] | | | y | | [...] | | | St | | | [place] | | | y | | [...] St | | | | | | [place] | | | y | | [...] | | | St. | | | [place] | | | y | | [...] | | | St. | | | [place] | | | y H. | [...] | | | St. | | | [place] | | | y H. | [...] | | | St. | | | [place] | | | y H. | [...] | | | St. | | | [place] | | | y H. | [...] | | | St. | | | [place] | | | y H. | [...] | | | St. | | | [place] | | | y H. | [...] | | | St. | | | [place] | | | y H. | [...] | | | MD | | | Physician Office Specialist | | | al | | | [...] | | | [id number] | | | [id number] | | | 2b | | | [...] in this encounter Results HEMODIALYSIS (12/14/2018 9:52 PDT) + + + | Narrative | Performed At | + + + | Billie Gupta MD 12/14/2018 9:54 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, | | | | | | [address] | | | | | |Testing performed at [facility], [address] [facility], [address] | | | | | | | | | | + + +--- + + + + + | Specimen | + + | Blood | + + + + + + + | Performing | Address | City/State/Zipcode | Phone Number | | Organization | | | | + + + + + | [facility] | [address] | [place] [address] | [phone] | + + + + + Basic Metabolic Panel (12/14/2018 6:10 PDT) + + + + + + [...] | 9.4 | 8.5 - 10.5 | [facility] | | | | | mg/dL | LABORATORY | | + + + + + + | Estimated | 7 (L)Comment: GFR <60: | >60 | [facility] | | | GFR | CHRONIC [...] W | | | | | | [facility], | | | | | | [place] [address] | | | | + + + + + + + + | Specimen | + + | Blood | + + + + + + + | Performing | Address | City/State/Zipcode | Phone Number | | Organization | | | | + + + + + | [facility] | [address] | [place] [address] | [phone] | + + + + + XR Chest AP Portable (12/13/2018 15:39 PDT) + + | Specimen | + [...] | Cedric, Rad Results In - 12/13/2018 1547 PDT [...] + + Basic Metabolic Panel (12/13/2018 5:27 PDT) + + + + + + [...] 11 (L)Comment: GFR <60: | >60 | [facility] | | | GFR | CHRONIC [...] W | | | | | | [facility], | | | | | | [address] | | | | + + + + + + + + | Specimen | + + | Blood | + + + + + + + | Performing | Address | City/State/Zipcode | Phone Number | | Organization | | | | + + + + + | [facility] | [address] | [place] [address] | [phone] | + + + + + US Guided Thoracentesis wo Chest Tube (12/12/2018 13:53 PDT) + + | Specimen | + [...] | Cedric, Rad Results In - 12/12/2018 1731 PDT [...] +---------+ + + C-Reactive Protein (12/12/2018 5:02 PDT) + + + + + + | Component | Value | Ref Range | Performed | Pathologist | | | | | At | Signature | + + + + + + | CRP | 8.6 (H)Comment: Testing | <0.5 mg/dL | [facility] | | | | performed at [facility], [address] | | LABORATORY | | | | [address], | | | | | | [place] [address] | | | | + + + + + + + + | Specimen | + + | Blood | + + + + + + + | Performing | Address | City/State/Zipcode | Phone Number | | Organization | | | | + + + + + | [facility] | [address] | [place] [address] | [phone] | + + + + + Culture, Blood (12/12/2018 5:02 PDT) + + + + [...] | | LABORATORY | | | | Blvd;[place] [address] | | | | + + + + + + | RESULT | NO GROWTH 6 DAYS | | [facility] | | | | | | LABORATORY | | + + + + + + | RESULT | Testing performed at | | [facility] | | | | [facility], [address] | | LABORATORY | | | | [place] | | | | | | [id number]: Testing | | | | | | performed at [facility], [address] | | | | | | [address] [place], [place] | | | | | | [address] | | | | + + + + + + + + | Specimen | + + | Blood | + + + + + + + | Performing | Address | City/State/Zipcode | Phone Number | | Organization | | | | + + + + + | [facility] | [address] | [place] [address] | [phone] | + + + + + CBC no Differential (12/12/2018 5:02 PDT) + + + + [...] [facility] | | | | performed at [facility], [address] | | LABORATORY | | | | [facility], | | | | | | [place] [address] | | | | + + + + + + + + | Specimen | + + | Blood | + + + + + + + | Performing | Address | City/State/Zipcode | Phone Number | | Organization | | | | + + + + + | [facility] | [address] | [place] [address] | [phone] | + + + + + Basic Metabolic Panel (12/12/2018 5:02 PDT) + + + + [...] 7 (L)Comment: GFR <60: | >60 | [facility] | | | GFR | CHRONIC [...] | | | | | | MDRD IDND traceable | | | | | | equation.Testing | | | | | | performed at [facility], [address] | | | | | | [facility], | | | | | | [address] | | | | + + + + + + + + | Specimen | + + | Blood | + + + + + + + | Performing | Address | City/State/Zipcode | Phone Number | | Organization | | | | + + + + + | [facility] | [address] | [place] [address] | [phone] | + + + + + Basic Metabolic Panel (12/11/2018 19:46 PDT) + + + + + + [...] 9 (L)Comment: GFR <60: | >60 | [facility] | | | GFR | CHRONIC [...] | | | | performed at [facility] | | | | | | [facility];[place], [place] | | | | | | [address] | | | | + + + + + + + + | Specimen | + + | Blood | + + + + + + + | Performing | Address | City/State/Zipcode | Phone Number | | Organization | | | | + + + + + | [facility] | [address] | [place] [address] | [phone] | + + + + + Influenza [...] B | NEGATIVEComment: Testing | NEG | KR | | | | performed by Molecular | | LABORATORY | | | | MethodologyTesting | | | | | | performed at [facility];[address];[place], [place] | | | | | | [address] | | | | + + + + + + + + | Specimen | + + | | + + + + + + + | Performing | Address | City/State/Zipcode | Phone Number | | Organization | | | | + + + + + | [facility] | [address] | [place] [address] | [phone] | + + + + + FLU SWAB COLLECTION (12/11/2018 15:46 PDT) + + + + + + | Component | Value | Ref Range | Performed | Pathologist | | | | | At | Signature | + + + + + + | Collection | SPECIMEN RECEIVED IN | | [facility] | | | | LABComment: Testing | | LABORATORY | | | | performed at [facility];[address] | | | | | | [address];[place] | | | | | | [address] | | | | + + + + + + + + | Specimen | + + | Tissue | + + + + + + + | Performing | Address | City/State/Zipcode | Phone Number | | Organization | | | | + + + + + | [facility] | [address] | [place] [address] | [phone] | + + + + + POC Glucose (12/11/2018 8:31 PDT) + + + + + + | Component | Value | Ref Range | Performed | Pathologist | | | | | At | Signature | + + + + + + | Glucose, | 84Comment: Testing | 65 - 99 mg/dL | [facility] | | | POC | performed at [facility];[address] | | LABORATORY | | | | [address];[place], [place] | | | | | | [address] | | | | + + + + + + + + | Specimen | + + | | + + + + + + + | Performing | Address | City/State/Zipcode | Phone Number | | Organization | | | | + + + + + | [facility] | [address] | [place] [address] | [phone] | + + + + + ECG 12 lead (12/11/2018 8:11 PDT) + + + + + + [...] (500), | | | | | | editor news Daniela Luciano | | | | | [...] + +---------+ + + PTT (12/11/2018 8:06 PDT) + + + + + + | Component | Value | Ref Range | Performed | Pathologist | | | | | At | Signature | + + + + + + | PTT | 32Comment: Testing | 23 - 32 seconds | [facility] | | | | performed at [facility];[address] | | LABORATORY | | | | [address];[place] | | | | | | [address] | | | | + + + + + + + + | Specimen | + + | Blood | + + + + + + + | Performing | Address | City/State/Zipcode | Phone Number | | Organization | | | | + + + + + | [facility] | [address] | [place] [address] | [phone] | + + + + + Basic Metabolic Panel (12/11/2018 6:15 PDT) + + + + + + [...] LABORATORY | | | | M ON [id number] BY | | | | | | [...] | | | | performed at [facility];[address] | | | | | | [facility];[place], [place] | | | | | | [address] | | | | + + + + + + + + | Specimen | + + | Blood | + + + + + + + | Performing | Address | City/State/Zipcode | Phone Number | | Organization | | | | + + + + + | [facility] | [address] | [place] [address] | [phone] | + + + + + Culture, Blood (12/11/2018 6:15 PDT) + + + + + + | Component | Value | Ref Range | Performed | Pathologist | | | | | At | Signature | + + + + + + | Special | RAC | | KR | | | Requests | | | LABORATORY | | + + + + + + | Special | Testing performed at | | [facility] | | | Requests | [facility];[address] | | LABORATORY | | | | [place] [address] | | | | + + + + + + | RESULT | NO GROWTH 6 DAYS | | [facility] | | | | | | LABORATORY | | + + + + + + | RESULT | Testing performed at | | [facility] | | | | [facility], [address] | | LABORATORY | | | | [place] | | | | | | [address]Oiqcrcj: Testing | | | | | | performed at [facility], [address] | | | | | | [place] | | | | | | [address] | | | | + + + + + + + + | Specimen | + + | Blood | + + + + + + + | Performing | Address | City/State/Zipcode | Phone Number | | Organization | | | | + + + + + | [facility] | [address] | [place] [address] | [phone] | + + + + + CT [...] | Cedric, Rad Results In - 12/11/2018 0249 PDT | | CT CHEST [...] LABORATORY | | | | performed at [facility];[address];[place] | | | | | | [address] | | | | + + + + + + + + | Specimen | + + | | + + + + + + + | Performing | Address | City/State/Zipcode | Phone Number | | Organization | | | | + + + + + | [facility] | [address] | [place] [address] | [phone] | + + + + + Lactic Acid (12/11/2018 1:04 PDT) + + + + + + | Component | Value | Ref Range | Performed | Pathologist | | | | | At | Signature | + + + + + + | Lactate, | 1.2Comment: Testing | 0.4 - 2.0 | [facility] | | | Serum | performed at [facility];[address] | mmol/L | LABORATORY | | | | [address];[place] | | | | | | [address] | | | | + + + + + + + + | Specimen | + + | Blood | + + + + + + + | Performing | Address | City/State/Zipcode | Phone Number | | Organization | | | | + + + + + | [facility] | [address] | [place] [address] | [phone] | + + + + + Lactic Acid (12/10/2018 23:44 PDT) + + + + + + | Component | Value | Ref Range | Performed | Pathologist | | | | | At | Signature | + + + + + + | Lactate, | 0.8Comment: Testing | 0.4 - 2.0 | [facility] | | | Serum | performed at [facility];[address] | mmol/L | LABORATORY | | | | [address];[place], [place] | | | | | | [address] | | | | + + + + + + + + | Specimen | + + | Blood | + + + + + + + | Performing | Address | City/State/Zipcode | Phone Number | | Organization | | | | + + + + + | [facility] | [address] | [place] [address] | [phone] | + + + + + Culture, Blood (12/10/2018 23:43 PDT) + + + + + + [...] LABORATORY | | | | BY:Brigitte CARTER [facility] @ 1855 | | | | | | 12/11/18 [...] RESULT | Testing performed at | | [facility] | | | | [facility], [address] [facility] | | LABORATORY | | | | [place], [place] | | | | | | [address]Wyomtvi: Testing | | | | | | performed at [facility], [address] | | | | | | [facility], | | | | | | [place] [address] | | | | + + + + + + + + | Specimen | + + | Blood | + + + + + + + | Performing | Address | City/State/Zipcode | Phone Number | | Organization | | | | + + + + + | [facility] | [address] | [place] [address] | [phone] | + + + + + XR Chest AP Portable (12/10/2018 23:24 PDT) + + | Specimen | + + | | + + + + + | Impressions | Performed At | + + + | IMPRESSION: 1. Moderate right pleural effusion with adjacent | [facility] | | compressive atelectasis, increased from prior exam. 2. Cardiomegaly. | | | Signed by: Eliza Lewis John Sign Date/Time: 12/10/2018 | | | 11:50 [...] base. Poorly defined opacity in | | | the right lung base, likely representing atelectasis. Left lung is | | | clear. Blunting of the right costophrenic angle. No | | | pneumothorax. Cardiac silhouette is enlarged. | | + + + + + | Procedure Note | + + | Cedric, Rad Results In - 12/10/2018 2354 PDT | | CHEST PORTABLE ONE VIEW [...] + +---------+ + + Troponin I (12/10/2018 23:02 PDT) + + + + + + [...] | [facility];[address] [facility] | | | | | | [facility];[place] [address] | | | | + + + + + + + + | Specimen | + + | Blood | + + + + + + + | Performing | Address | City/State/Zipcode | Phone Number | | Organization | | | | + + + + + | [facility] | [address] | [place] [address] | [phone] | + + + + + Protime INR (12/10/2018 23:02 PDT) + + + + + + [...] | | | | performed at [facility];[address] | | | | | | [address];[place], [place] | | | | | | [address] | | | | + + + + + + + + | Specimen | + + | Blood | + + + + + + + | Performing | Address | City/State/Zipcode | Phone Number | | Organization | | | | + + + + + | [facility] | [address] | [place] [address] | [phone] | + + + + + CBC with Differential (12/10/2018 23:02 PDT) + + + + + + [...] | | | | | | at [facility];[address];[place] [address] | | | | | |NORMAL [address] | | | | | |Testing performed at [facility];[address] [facility];[place] [address] | | | | | | | | | | + + + + + + + + | Specimen | + + | Blood | + + + + + + + | Performing | Address | City/State/Zipcode | Phone Number | | Organization | | | | + + + + + | [facility] | [address] | [place] [address] | [phone] | + + + + + Phosphorus (12/10/2018 23:02 PDT) + + + + + + | Component | Value | Ref Range | Performed | Pathologist | | | | | At | Signature | + + + + + + | Phosphorus | 8.9 (H)Comment: Testing | 2.3 - 4.8 mg/dL | [facility] | | | | performed at [facility];[address] | | LABORATORY | | | | [address];[place] | | | | | | [address] | | | | + + + + + + + + | Specimen | + + | Blood | + + + + + + + | Performing | Address | City/State/Zipcode | Phone Number | | Organization | | | | + + + + + | [facility] | [address] | [place] [address] | [phone] | + + + + + Magnesium (12/10/2018 23:02 PDT) + + + + + + | Component | Value | Ref Range | Performed | Pathologist | | | | | At | Signature | + + + + + + | Magnesium | 2.2Comment: Testing | 1.7 - 2.4 mg/dL | [facility] | | | | performed at [facility];[address] | | LABORATORY | | | | [address];[place], [place] | | | | | | [address] | | | | + + + + + + + + | Specimen | + + | Blood | + + + + + + + | Performing | Address | City/State/Zipcode | Phone Number | | Organization | | | | + + + + + | [facility] | [address] | [place] [address] | [phone] | + + + + + Comprehensive Metabolic Panel (12/10/2018 23:02 PDT) + + + + + + | Component | Value | Ref Range | Performed | Pathologist | | | | | At | Signature | + + + + + + | Na | 137 | 135 - 145 | [facility] | | | | | mmol/L | LABORATORY | | + + + + + + | K | 6.3 (HH)Comment: CALLED | 3.5 - 4.9 | [facility] [...] 22 | 10 - 65 U/L | [facility] | | | | | | LABORATORY | | + + + + + + | Estimated | 3 (L)Comment: GFR <60: | >60 | [facility] | | | GFR | CHRONIC [...] | | | | performed at [facility];[address] | | | | | | [facility];[place], [place] | | | | | | [address] | | | | + + + + + + + + | Specimen | + + | Blood | + + + + + + + | Performing | Address | City/State/Zipcode | Phone Number | | Organization | | | | + + + + + | [facility] | [address] | [place] [address] | [phone] | + + + + + ECG 12 lead (12/10/2018 22:14 PDT) + + + + + + [...] | | | | increased BY 57 | | | | | | BPMQRS axis Shifted | | | | | [...] | | | | | ONLY, -COMPUTER (414), | | | | | | editor news Daniela Luciano | | | | | [...] Diagnosis | + + | Acute respiratory failure with hypoxia (HCC) - Primary Acute respiratory failure | + + | Sepsis, due to [...] and hypercapnia (HCC) | + + | Anemia in [...] Starting Mon12/11/18 | | | at 0937, Treatment date(s): [...] | IVPB 500 mg, Intravenous, | | PDT [...] | Intravenous, Administer over 60 | | PDT | | | | | Minutes, [...] | Intravenous, Administer over 60 | | PDT | | | | | Minutes, [...] dose on Mon12/11/18 at 0900 | | PDT | | | | + +-------+ +-------+---+---+ +-------+ +-------+---+---+ | Given | 12/14/19 | 75 mg | | | | | 19 11:22 | | | | | | PDT | | | | +-------+ +-------+---+---+ | Given | 10/09/20 | 75 mg | | | | | 19 13:49 | | | | | | PDT | | | | +-------+ +-------+---+---+ +---+---+ | | | +---+---+ + +-------+ +------+---+---+ | dextrose 50% injection 25 g 25 | Given | 12/12/19 | 25 g | | | | g, Intravenous, ONCE, Tue | | 19 8:33 | | | | | 12/11/18 at 0815, For 1 dose | | PDT | | | | + +-------+ +------+---+---+ +---+---+ | | | +---+---+ + +-------+ +------+---+---+ | dextrose 50% injection 25 g 25 | Given | 12/12/19 | 25 g | | | | g, Intravenous, ONCE, Tue | | 19 8:33 | | | | | 12/11/18 at 0815, For 1 dose | | PDT | | | | + +-------+ +------+---+---+ +---+---+ | | | +---+---+ + +-------+ +---------+---+---+ | epoetin jenna-epbx (RETACRIT) | Given | 12/12/19 | 10,000 | | | | 10,000 units/mL injection 10,000 | | 19 11:45 | Units | | | | Units 10,000 Units, Intravenous, | | PDT | | | | | WITH [...] (0.4 mL/hr), at 0.4 mL/hr, | | PDT | | | | | Intravenous, [...] | 3,000 Units, Intravenous, WITH | | PDT | | | | | EACH [...] | Units, Intravenous, DIALYSIS - | | PDT | | | | | ONCE, [...] | mL/hr), Intravenous, at 0.4 | | PDT | | | | | mL/hr, [...] 1 mg 1 mg, | | 19 23:48 | | | | | Intravenous, ONCE, 12/10/18 at | | PDT | | | | | 2345, For 1 dose | | | | | | + +-------+ +------+---+---+ +---+---+ | | | +---+---+ + +-------+ +---------+---+ + | influenza quadrivalent | Given | 12/12/19 | 0.5 mLs | | Deltoid- | | (FLUZONE, FLUARIX, AFLURIA | | 19 20:24 | | | Left | | QUADRIVALENT) vaccine injection | | PDT | | | | | (syringe) 0.5 mL 0.5 mL, | | | | | | | Intramuscular, ONE TIME VACCINE, | | | | | | | 12/11/18 at 1700, For 1 dose, | | | | | | | Give patient education | | | | | | | information. Shake prior to use., | | | | [...] | Units, Intravenous, ONCE, Tue | | PDT | | | | | 12/11/18 [...] 19 11:43 | | | | | on 12/12/18 at 0900 | | PDT | | | | + +-------+ +-------+---+---+ +-------+ +-------+---+---+ | Given | 12/14/19 | 25 mg | | | | | 19 11:22 | | | | | | PDT | | | | +-------+ +-------+---+---+ | Given | 12/13/19 | 25 mg | | | | | 19 13:47 | | | | | | PDT | | | | +-------+ +-------+---+---+ +---+---+ | | | +---+---+ + +-------+ +-------+---+---+ | losartan (COZAAR) tablet 25 mg | Given | 12/12/19 | 25 mg | | | | 25 mg, Oral, ONCE, 12/11/18 | | 19 15:38 | | | | | at 0845, For 1 dose | | PDT | [...] | PDT | | | | | 12/12/18 at 0900, Tablet may | | | | | | | be cut where scored but do not | | | | | | | crush., | | | | | | + +-------+ +-------+---+---+ +-------+ +-------+---+---+ | Given | 12/14/19 | 50 mg | | | | | 19 11:22 | | | | | | PDT | | | | +-------+ +-------+---+---+ | Given | 12/13/19 | 50 mg | | | | | 19 13:50 | | | | | | PDT | | | | +-------+ +-------+---+---+ +---+---+ | | | +---+---+ + +-------+ +--------+---+---+ | nitroglycerin (NITROSTAT) SL | Given | 12/12/19 | 0.4 mg | | | | tablet 0.4 mg 0.4 mg, | | 19 0:26 | | | | | Sublingual, EVERY [...] mg | | | | | 19 23:48 | | | | | | PDT | | | | +-------+ +--------+---+---+ +---+---+ | | | +---+---+ + +-------+ +------+---+---+ | ondansetron (ZOFRAN) injection | Given | 12/11/19 | 4 mg | | | | 4 mg 4 mg, Intravenous, ONCE, | | 19 23:44 | | | | | 12/10/18 at 2340, For 1 dose | | PDT | | | | + +-------+ +------+---+---+ +---+---+ | | | +---+---+ + +-------+ +------+---+---+ | ondansetron (ZOFRAN) injection | Given | 12/15/19 | 4 mg | | | | 4 mg 4 mg, Intravenous, EVERY 6 | | 19 10:45 | | | | | HOURS PRN, Nausea, Vomiting, | | PDT | | | | | Starting 12/11/18 at 0719 | | | | | | + +-------+ +------+---+---+ +-------+ +------+---+---+ | Given | 12/15/19 | 4 mg | | | | | 19 2:52 | | | | | | PDT | | | | +-------+ +------+---+---+ | Given | 12/14/19 | 4 mg | | | | | 19 17:47 | | | | | | PDT | | | | +-------+ +------+---+---+ +---+---+ | | | +---+---+ + +-------+ +-------+---+---+ | oxyCODONE (ROXICODONE) tablet | Given | 12/15/19 | 10 mg | | | | 5-10 mg 5-10 mg, Oral, EVERY 4 | | 19 11:41 | | | | | HOURS PRN, Pain, Starting Wed | | PDT | | | | | 12/12/18 at 0948 | | | | | | + +-------+ +-------+---+---+ +-------+ +-------+---+---+ | Given | 12/15/19 | 10 mg | | | | | 19 7:26 | | | | | | PDT | | | | +-------+ +-------+---+---+ | Given | 12/15/19 | 10 mg | | | | | 19 2:46 | | | | | | PDT [...] | PDT | | | | | 12/11/18 at 0900, Do not cut | | | | | | | or crush., Indication: GERD | | | | | | + +-------+ +-------+---+---+ +-------+ +-------+---+---+ | Given | 12/14/19 | 40 mg | | | | | 19 6:21 | | | | | | PDT | | | | +-------+ +-------+---+---+ | Given | 12/13/19 | 40 mg | | | | | 19 5:45 | | | | | | PDT | | | | +-------+ +-------+---+---+ +---+---+ | | | +---+---+ + +---------+ +---------+-------+---+ | piperacillin-tazobactam (ZOSYN) | New Bag | 12/12/19 | 3.375 g | 100 | | | IVPB 3.375 g 3.375 g, | | 19 0:55 | | mL/hr | | | Intravenous, Administer over 0.5 | | PDT | | | | | Hours, ONCE, Mon12/11/18 at 0050, | | | | | [...] | | | | | | | Sepsis of Unknown Etiology | | | | | | + +---------+ +---------+-------+---+ +---+---+ | | | +---+---+ + +---------+ +---------+-------+---+ | piperacillin-tazobactam (ZOSYN) | New Bag | 12/12/19 | 3.375 g | 100 | | | IVPB 3.375 g 3.375 g, | | 19 20:26 | | mL/hr | | | Intravenous, Administer over 0.5 | | PDT | | | | | Hours, ONCE, Mon12/11/18 at 2000, | | | | | [...] | | | | | | | Sepsis of Unknown Etiology | | | | | | + +---------+ +---------+-------+---+ +---+---+ | | | +---+---+ + +---------+ +---------+-------+---+ | piperacillin-tazobactam (ZOSYN) | New Bag | 12/13/19 | 3.375 g | 12.5 | | | IVPB 3.375 g 3.375 g, | | 19 14:22 | | mL/hr | | | Intravenous, Administer over 4 | | PDT | | | | | Hours, [...] | | | | | | | Sepsis of Unknown Etiology | | | | | | + +---------+ +---------+-------+---+ +---------+ +---------+-------+---+ | New Bag | 12/13/19 | 3.375 g | 12.5 | | | | 19 0:30 | | mL/hr | | | | PDT | | | | +---------+ +---------+-------+---+ +---+---+ | | | +---+---+ + +-------+ +---------+---+ + | promethazine (PHENERGAN) (IM | Given | 12/13/19 | 6.25 mg | | Deltoid- | | ONLY) injection 6.25 mg 6.25 mg, | | 19 23:49 | | | Right | | Intramuscular, ONCE, 12/12/18 | | PDT | | | | [...] | | Intravenous, ONCE, 12/11/18 | | PDT | | | | [...] 6.25 mg 6.25 mg, | | 19 14:54 | | | | | Intravenous, ONCE, [facility] 12/13/18 | | PDT | | | | [...] 6.25 mg 6.25 mg, | | 19 22:43 | | | | | Intravenous, ONCE, [facility] 12/13/18 | | PDT | | | | [...] mg | | | | | 19 17:42 | | | | | | PDT | | | | +-------+ + +---+---+ | Given | 12/14/19 | 1,600 mg | | | | | 19 11:22 | | | | | | PDT | | | | +-------+ + +---+---+ + +---+ | | | + +---+ | sodium chloride 0.9% (NS) bolus | | | 100 mL 100 mL, Intravenous, | | | Administer over 15 Minutes, | | | DIALYSIS - PRN, Hypotension, | | | Starting [facility] 12/11/18 at 0937, | | | Treatment [...] - PRN, Hypotension, | | | Starting [facility] 12/12/18 at 0734, | | | Treatment [...] | Pain, Starting Mon12/11/18 at | | PDT | | | | | 1531 | | | | | | + +-------+ +-------+---+---+ +---+---+ | | | +---+---+ + +-------+ +-------+---+---+ | traMADol (ULTRAM) tablet 50 mg | Given | 12/12/19 | 50 mg | | | | 50 mg, Oral, ONCE, e 12/11/18 | | 19 22:07 | | | | | at 2215, For 1 dose | | PDT | | | | + +-------+ +-------+---+---+ +---+---+ | | | +---+---+ + +---------+ +--------+-------+---+ | vancomycin in saline IVPB 1.75 | New Bag | 12/13/19 | 1.75 g | 250 | | | g 1.75 g (rounded from 1.7675 g | | 19 13:50 | | mL/hr | | | = 25 mg/kg | | PDT | | | | | 70.7 [...]
--- OUTSIDE RECORDS SUMMARY | ~2019-01-06 | XMS | Encounter Summary ---
Demographics + + + | Address | [address] | | | [place] [address] | + + + | Home Phone [...] | | | | | [place] [address] | | + + + + + | Thania Mallory | ECON | [address] | | | | | [place] [address] | | + + + + + | Deidra Weldon | ECON | [address] | | | | | [place] | | | | | [address] | | + + + + + Care Team Providers + +------+ + | Care Document Imaging Specialist Name | Role | Phone | [...] | | Nephrology at | MD Emanuel [address] | | | | | [place] | [address] | | | | | [facility] | [place], [place] | | | | | [address] | [address] | | | | | Caro Chan Mailcode: | [phone] | | | | | [address] | | | | | | [place], [place] | | | | | | [address] | | | | | | [phone] | | | +--------+ + + + [...] Denise | | | | | | [place], [place] | | | | | | [address] | | | | | | [phone] | | | | | | | [...]
--- OUTSIDE RECORDS SUMMARY | ~2019-01-06 | XMS | Encounter Summary ---
Demographics + + + | Address | [address] | | | [place] [address] | + + + | Home Phone [...] | Author | [facility] | | | and [place] | + + + | Organization | [facility] | | | and [place] | [...] Team Providers + +------+ + | Care Refractory Technician Name | Role | Phone | [...] + + | 11/13/ | Telephone | [facility] | Silvia Rabago | DME ([facility]) | | 2019 | | [address] | [place] | | | | | [place] | | | | | | [address] | | | | | | [phone] | | | +--------+ + + + [...] | | | | | [place] [address] | | | | | | [phone] | | | | | | | | +--------+---------+ + + + documented as of this encounter Visit Diagnoses Not on filedocumented in this encounter"
--- OUTSIDE RECORDS SUMMARY | ~2019-01-06 | XMS | Encounter Summary ---
Demographics + + + | Address | [address] | | | [place] [address] | + + + | Home Phone [...] | | | | | [place] [address] | | + + + + + | Thania Mallory | ECON | [address] | | | | | [place] [address] | | + + + + + | Deidra Weldon | ECON | [address] | | | | | [place] | | | | | [address] | | + + + + + Care Team Providers + +------+ + | Care Grinder And Honer Operator Automatic Name | Role | Phone | + +------+ + | Jonathan Alonso MD | PCP | | + +------+ + Encounter Details +--------+------+ + + + | Date | Type | Department | Care Team | Description | +--------+------+ + + + | 01/20/ | Lab | Lab Center at [facility] | | 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; | | | | [address] | | Hemodialysis status | | | | [phone] | | ([facility]); Chronic | | | | | | kidney disease, | | | | | | stage V ([facility]) | +--------+------+ + + + Social History [...] Denise | | | | | | [place], [place] | | | | | | [address] | | | | | | [phone] | | | | | | | [...] | e | 9:59 AM | MEDICARE 8801 HSP | procedure are in the | [...] | | | | | stage V ([facility]) | | + +--------+ + [...] | | | | | stage V ([facility]) | | + +--------+ + [...] | | | | | stage V ([facility]) | | + +--------+ + [...] | | | | | stage V ([facility]) | | + +--------+ + [...] | | | | | stage V ([facility]) | | + +--------+ + + + | HIV-1,2 AB/HIV-1 P24 | Routin | 01/20/2015 | Allergic purpura- | Results for this | | AG SCRN | e | 9:59 AM | MEDICARE 2728 HSP | procedure are in the | | | | PST | ([facility] | results section. | | [...] the | | | | PST | ([facility] | results section. | | | | [...] the | | | | PST | ([facility] | results section. | | | [...] the | | | | PST | ([facility] | results section. | | | [...] the | | | | PST | ([facility] | results section. | | [...] the | | | | PST | ([facility] | results section. | | | [...] the | | | | PST | ([facility] | results section. | | [...] | + + + + + | [facility] - | [address] | [place] [address] | | | [place] | | | | + + + [...] [facility] | [address] | [place] [address] | | | SERVICES, CORE | PARK [...] + + + + | [facility] | [address] | [place] [address] | | | SERVICES, SPECIAL | PARK [...] + + + | [facility] | [address] | [place] [address] | | | DIAGNOSTIC | [address] [...] + | [facility] - | [address] | [place] [address] | | | [place] | | | | + + + [...] + | [facility] - | [address] | [place] [address] | | | [place] | | | [...] | + + + + + | [facility] - | [address] | [place] [address] | | | [place] | | | [...] | + + + + + | [facility] - | [address] | [place] [address] | | | [place] | | | [...] by | | | | | | Kabam,[address] | | | | | | Pippa Sauceda, [facility] | | | | | | [address] | | | | | | [phone].[employer] | | | | | | annalee, [...] [facility] | [address] | [place], [place] | | | UNIV PTH - INTFC | | [address] | | + + + + + [...] | + + + + + | [facility] - | [address] | [place] [address] | | | [place] | | | | + + + [...] by | | | | | | [address]am,[address] | | | | | | Pippa Sauceda, [place] | | | | | | [address] | | | | | | [phone].SeGan Angel Printslab. | | | | | | Faisal [...] [facility] | [address] | [place], [place] | | | UN[facility] PTH - INTFC | | [address] | | + + + + + [...] [facility] | [address] | [place] [address] | | | SERVICES, CORE | PARK [...] | + + + + + | [facility] | [address] | [place] [address] | | | SERVICES, CORE | LONG [...] [facility] | [address] | [place] [address] | | | SERVICES, CORE | PARK [...] [facility] | [address] | [place] [address] | | | SERVICES, CORE | PARK [...] | + + + + + | [facility] | [address] | [place] [address] | | | SERVICES, CORE | LONG [...] | | | LABORATORY | | | ENGLISH | | | SERVICES, | | | [...] DANILO [facility] | [address] | [place] [address] | | | SERVICES, CORE | PARK [...]
--- OUTSIDE RECORDS SUMMARY | ~2019-01-06 | XMS | Encounter Summary ---
Demographics + + + | Address | [address] | | | [place] [address] | + + + | Home Phone [...] | | | | | [place] [address] | | + + + + + | Thania Mallory | ECON | [address] | | | | | [place] [address] | | + + + + + | Deidra Weldon | ECON | [address] | | | | | [place] | | | | | [address] | | + + + + + [...] Mailcode: | | | | | | [address] | [facility] | | | | | | Keven Drew | [place] | | | | | | [place], | [place], [place] | | | | | | [place] | [address] | | | | | | [address] | Phone: | | | | | | Phone: | [phone] | | | | | | [phone] | | | | | | | Fax: | | | | | | | [phone] | | +--------+--------+ + + + + Encounter Details +--------+---------+ + + + | Date | Type | Department | Care Team | Description | +--------+---------+ + + + | 01/20/ | Office | Specialty Clinics | Sudhakar Joy | HSP | | 2014 | Visit | at [facility] [address] MD [address] | ([place] | | | | [address] | [facility] [address] | purpura) nephritis | | | | Mailcode: DC7 | [place], [place] | (Primary Dx); | | | | [place] | [address] | Allergic purpura- | | | | [place], [place] | [phone] | MEDICARE 2728; | | | | [address] | | Anemia of chronic | | | | [phone] | | kidney failure, | | | [...] [address] Mail code [facility]-P [place], [place] [id number] documented in this encounter Plan of Treatment +--------+ + + + + | Date | Type | Specialty | Care Team | Description | +--------+ + + + + | 05/04/ | Hospital | Adult Acute Care | El Starr MD | | | 2022 | Encounter | | [address] | | | | | | [place], [place] | | | | | | [address] | | | | | | [phone] | | | | | | | [...]
--- OUTSIDE RECORDS SUMMARY | ~2019-01-06 | XMS | Encounter Summary ---
Demographics + + + | Address | [address] | | | [place] [address] | + + + | Home Phone [...] | | | | | [place] [address] | | + + + + + | Thania Mallory | ECON | [address] | | | | | [place] [address] | | + + + + + | Deidra Weldon | ECON | [address] | | | | | [place] | | | | | [address] | | + + + + + Care Team Providers + +------+ + | Care Interpreter Name | Role | Phone | + +------+ + | Jonathan Alonso MD | PCP | | + +------+ + Encounter Details +--------+------+ + + + | Date | Type | Department | Care Team | Description | +--------+------+ + + + | 01/20/ | Lab | Lab Center at [facility] | | 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 [address] | | MEDICARE 2728; 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[place], [place]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; | | | | [address] | | Hemodialysis status | | | | [phone] | | ([facility]); Chronic | | | | | | kidney disease, | | | | | | stage V ([facility]) | +--------+------+ + + + Social History [...] Denise | | | | | | [place], [place] | | | | | | [address] | | | | | | [phone] | | | | | | | [...] | e | 9:59 AM | MEDICARE 0834 HSP | procedure are in the | [...] | | | | | stage V ([facility]) | | + +--------+ + + + [...] | | | | | stage V ([facility]) | | + +--------+ + + + [...] | | | | | stage V ([facility]) | | + +--------+ + + + [...] | | | | | stage V ([facility]) | | + +--------+ + + + [...] | | | | | stage V ([facility]) | | + +--------+ + + + | HIV-1,2 AB/HIV-1 P24 | Routin | 01/20/2015 | Allergic purpura- | Results for this | | AG SCRN | e | 9:59 AM | MEDICARE 2728 HSP | procedure are in the | | | | PST | ([facility] | results section. | | | | [...] the | | | | PST | ([facility] | results section. | | | | [...] the | | | | PST | ([facility] | results section. | | | [...] the | | | | PST | ([facility] | results section. | | | [...] | | | | PST | ([facility] [place] | results section. | | | | [...] the | | | | PST | ([facility] | results section. | | | [...] | | | | PST | ([facility] | results section. | | | | [...] | + + + + + | [facility] - | [address] | [place] [address] | | | [place] | | | | + + + [...] [facility] | [address] | [place] [address] | | | SERVICES, CORE | PARK [...] | + + + + + | [facility] | [address] | [place] [address] | | | SERVICES, SPECIAL | PARK [...] + + + | [facility] | [address] | [place] [address] | | | DIAGNOSTIC | [address] [...] + | [facility] - | [address] | [place] [address] | | | [place] | | | | + + + [...] + | [facility] - | [address] | [place] [address] | | | [place] | | | [...] | + + + + + | [facility] - | [address] | [place] [address] | | | [place] | | | [...] | + + + + + | [facility] - | [address] | [place] [address] | | | [place] | | | [...] by | | | | | | [employer]el [employer],[address] | | | | | | Pippa Sauceda, [facility] [place] | | | | | | [address] | | | | | | [phone].Jingit. | | | | | | annalee, [...] [facility] | [address] | [place], [place] | | | UN[place] PTH - INTFC | | [address] | | + + + + + [...] | + + + + + | [facility] - | [address] | [place] [address] | | | [place] | | | | + + + [...] by | | | | | | [employer],[address] | | | | | | Pippa Sauceda, [place] | | | | | | [address] | | | | | | [phone].[employer]Gravitylab. | | | | | | Faisal [...] [facility] | [address] | [place], [place] | | | UN[place] PTH - INTFC | | [address] | | + + + + + [...] [facility] | [address] | [place] [address] | | | SERVICES, CORE | PARK [...] | + + + + + | [facility] | [address] | [place] [address] | | | SERVICES, CORE | LONG [...] [facility] | [address] | [place] [address] | | | SERVICES, CORE | PARK [...] [facility] | [address] | [place] [address] | | | SERVICES, CORE | PARK [...] | + + + + + | [facility] | [address] | [place] [address] | | | SERVICES, CORE | LONG [...] | | | LABORATORY | | | ZAMBIAN | | | SERVICES, | | | [...] DANILO [facility] | [address] | [place] [address] | | | SERVICES, CORE | PARK [...]
--- OUTSIDE RECORDS SUMMARY | ~2019-01-06 | XMS | Encounter Summary ---
Demographics + + + | Address | [address] | | | [place] [address] | + + + | Home Phone [...] | | | | | [place] [address] | | + + + + + | Thania Mallory | ECON | [address] | | | | | [place] [address] | | + + + + + | Deidra Weldon | ECON | [address] | | | | | [place] | | | | | [address] | | + + + + + Care Team Providers + +------+ + | Care Web Interface Developer Name | Role | Phone | [...] (Evaluation | | | | [address] [facility] | [facility] [address] | Scheduled) | | | | [place], [place] | [place], [place] | | | | | [address] | [address] | | | | | [phone] | [phone] | | | | | | | [...] Denise | | | | | | [place] | | | | | | [address] | | | | | | [phone] | | | | | | | | +--------+ + + + + documented as of this encounter Visit Diagnoses Not on filedocumented in this encounter"
--- OUTSIDE RECORDS SUMMARY | ~2019-01-06 | XMS | Encounter Summary ---
Demographics + + + | Address | [address] | | | [place] [address] | + + + | Home Phone [...] | | | | | [place] [address] | | + + + + + | Thania Mallory | ECON | [address] | | | | | [place] [address] | | + + + + + | Deidra Weldon | ECON | [address] | | | | | [place] | | | | | [address] | | + + + + + Care Team Providers + +------+ + | Care Disease Education Specialist Name | Role | Phone | [...] Visit | Services Inpatient | RD [address] [facility] [address] | disease, stage V | | | | [address] | [facility] | (HCC) (Primary Dx) | | | | [address] | [place], [place] | | | | | Mailcode: UHS18 | [address] | | | | | [place], [place] | [phone] | | | | | [address] | | | | | | [phone] | | | +--------+---------+ + + + [...] a nutrition perspective. Argentina Mehta, MS, RD, DIMPLING MACHINE OPERATOR, LD documented in this e ncounter [...] [place] | | | | | | [address] | | | | | | [phone] | | | | | | | | +--------+ + + + + documented as of this encounter Procedures + +--------+ + + + | Procedure Name | Priori | Date/Time | Associated Diagnosis | Comments | | | ty | | | | + +--------+ + + + | IN MNT INITIAL | Routin | 12/21/2012 | [...]
--- OUTSIDE RECORDS SUMMARY | ~2019-01-06 | XMS | Encounter Summary ---
Demographics + + + | Address | [address] | | | [place] [address] | + + + | Home Phone [...] | | | | | [place] [address] | | + + + + + | Thania Mallory | ECON | [address] | | | | | [place] [address] | | + + + + + | Deidra Weldon | ECON | [address] | | | | | [place] | | | | | [address] | | + + + + + Care Team Providers + +------+ + | Care Policy Services Representative Name | Role | Phone | [...] questions) | | | | [address] [place] | [facility] | | | | | [place], [place] | [place], [place] | | | | | [address] | [address] | | | | | [phone] | | | +--------+ + + + [...] Denise | | | | | | [place] | | | | | | [address] | | | | | | [phone] | | | | | | | | +--------+ + + + + documented as of this encounter Visit Diagnoses Not on filedocumented in this encounter"
--- OUTSIDE RECORDS SUMMARY | ~2019-01-06 | XMS | Encounter Summary ---
Demographics + + + | Address | [address] | | | [place] [address] | + + + | Home Phone [...] | | | | | [place] [address] | | + + + + + | Thania Mallory | ECON | [address] | | | | | [place] [address] | | + + + + + | Deidra Weldon | ECON | [address] | | | | | [place] | | | | | [address] | | + + + + + Care Team Providers + +------+ + | Care Parlor Chaperone Name | Role | Phone | + [...] (Drug | | | | [address] [facility] | [facility] | screens) | | | | Rd [place], [place] | [facility] [place] | | | | | [address] | [address] | | | | | [phone] | | | +--------+ + + + [...] | | | | | | [place] | | | | | | [address] | | | | | | [phone] | | | | | | | | +--------+ + + + + documented as of this encounter Visit Diagnoses Not on filedocumented in this encounter"
--- OUTSIDE RECORDS SUMMARY | ~2019-01-06 | XMS | Encounter Summary ---
Demographics + + + | Address | [address] | | | [place] [address] | + + + | Home Phone [...] | | | | | [place] [address] | | + + + + + | Thania Mallory | ECON | [address] | | | | | [place] [address] | | + + + + + | Deidra Weldon | ECON | [address] | | | | | [place] | | | | | [address] | | + + + + + Care Team Providers + +------+ + | Care Home Support Worker Name | Role | Phone | [...] Rd | | | | | | [place], [place] | | | | | | [address] | | | +--------+ + + + [...] Denise | | | | | | [place], [place] | | | | | | [address] | | | | | | [phone] | | | | | | | | +--------+ + + + + documented as of this encounter Visit Diagnoses Not on [facility] in this encounter"
--- OUTSIDE RECORDS SUMMARY | ~2019-01-06 | XMS | Encounter Summary ---
[...] | Author | [facility] | | | and Josephana | + + + | Organization | [facility] [...] Team Providers + +------+ + | Care Copy Manager Name | Role | Phone | [...] Telephone | [facility] | [place], Appointment | | 2019 | | LUDLOW CASE | Irish Obrien CMA | (Appointment with | | | | MANAGEMENT [address] | | PCP needed) | | | | [address] | | | | | | [place], [place] | | | | | | [address] | | | | | | [phone] | | | +--------+ + + + [...] E | | | | | | [place] [address] | | | | | | [phone] | | | | | | | | +--------+---------+ + + + documented as of this encounter Visit Diagnoses Not on filedocumented in this encounter"
--- OUTSIDE RECORDS SUMMARY | ~2019-01-06 | XMS | Encounter Summary ---
Demographics + + + | Address | [address] | | | [place] [address] | + + + | Home Phone [...] | | | | | [place] [address] | | + + + + + | Thania Mallory | ECON | [address] | | | | | [place] [address] | | + + + + + | Deidra Weldon | ECON | [address] | | | | | [place] | | | | | [address] | | + + + + + Care Team Providers + +------+ + | Care Sports Teacher Name | Role | Phone | [...] SW | | | | [address] [facility] | [facility] [address] | follow-up on | | | | Rd [place], [place] | [place], [place] | [place] | | | | [address] | [address] | care plan) | | | | [phone] | | | +--------+ + + + [...] Denise | | | | | | [place] | | | | | | [address] | | | | | | [phone] | | | | | | | | +--------+ + + + + documented as of this encounter Visit Diagnoses Not on filedocumented in this encounter"
--- OUTSIDE RECORDS SUMMARY | ~2019-01-06 | XMS | Encounter Summary ---
Demographics + + + | Address | [address] | | | [place] [address] | + + + | Home Phone [...] | | | | | [place] [address] | | + + + + + | Thania Mallory | ECON | [address] | | | | | [place] [address] | | + + + + + | Deidra Louise | ECON | [address] | | | | | [place] | | | | | [address] | | + + + + + Care Team Providers + +------+ + | Care Deck Hand Name | Role | Phone | [...] | purpura | [address] | [facility] [address] | | | | | (HCC) [facility] | Elias | [address] | | | | | (Amelie | [address] | [address] | | | | | nlein | [place], [place] | Mailcode: | | | | | purpura) | [address] | DC7S | | | | | nephritis | Phone: | Doerarielaecher | | | | | (HCC) | [phone] | [place], [place] | | | | | Hemodialysis | Fax: | [address] | | | | | status | [phone] | Phone: | | | | | (HCC) | | [phone] | | | | | Chronic | | Fax: | | | | | kidney | | [phone] | | | | | disease, | | | | | | | stage V | | | | | | | ([facility]) | | | | | | | [...] [address] | RN [address] | Appointment | | | | [address] [facility] | [facility] | | | | | Rd [place], [place] | [place], [place] | | | | | [address] | [address] | | | | | [phone] | | | +--------+ + + + [...] 3 | Encounter | | [address] | | | | | | [place], [place] | | | | | | [address] | | | | | | [phone] | | | | | | | | +--------+ + + + + + +------+--------+ + + | Name | Type | Priori | Associated Diagnoses | Order Schedule | | | | ty | | | + +------+--------+ + + | 12 LEAD ECG | ECG | Routin | Allergic purpura- | Ordered: 01/07/2015 | | | | e | MEDICARE 6338 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 | | | | | | Hemodialysis status | | | | | | ([facility]) Chronic | | | | | | kidney disease, | | | | | | stage V ([facility]) | | + +------+--------+ + + documented [...] BSA | | | | | | (WYANDANCH Z | | | | | | [...] 2:35 PM PST Echocardiography Laboratory | | [address] | | [place] [address] | | ; | | [id number] | | | | Transthoracic Echocardiogram Report | | | | | | NAME: DARA LOUISE Study Date: 01/20/2015 1:18:29 PM | | Order #: [id number] ACC #: [id number] | | | | | | : [...] on 01/20/2015 at 2:35:17 PM | | Cross Country/Track And Field Coach: YARITZA KLINE RD | | | | | | cc: | | | | | | Modes utilized | | TTE 12483; Spectral Doppler 48280; Color flow Doppler 40125; | | | | | | | | Final | + + + + + + + | Performing | Address | City/State/Zipcode | Phone Number | | Organization | | | | + + + + + | [facility] | [address] | [place], [place] | | | CARDIOLOGY | [address] | [address] | | + + + + + [...] | + + + + + | [facility] | [address] | [place] [address] | | | SERVICES, SPECIAL | PARK [...] 12-100,000,000 IU/mL These results are most | [facility] | | likely suggestive of either the [...] + + + | [facility] | [address] | [place] [address] | | | DIAGNOSTIC | [address] [...] + | [facility] - | [address] | [place] [address] | | | [place] | | | | + + + [...] + | [facility] - | [address] | [place] [address] | | | [place] | | | [...] + | [facility] - | [address] | [place] [address] | | | [place] | | | [...] + | [facility] - | [address] | [place] [address] | | | [place] | | | | + + + [...] by | | | | | | [employer],[address] | | | | | | Lorne Drew, [facility] [place] | | | | | | [address] | | | | | | [phone].HiWiFi. | | | | | | Faisal [...] [facility] | [address] | [place], [place] | | | UNIV PTH - INTFC | | [address] | | + + + + + [...] + | [facility] - | [address] | [place] [address] | | | [place] | | | [...] by | | | | | | Month[employer],[address] | | | | | | Lorne Rajendra, [facility],[place] | | | | | | [address] | | | | | | [phone].[employer]lab. | | | | | | [...] | + + + + + | [facility] | [address] | [place], [place] | | | UN[place] PTH - INTFC | | [address] | | + + + + + [...] [facility] | [address] | [place] [address] | | | SERVICES, CORE | PARK [...] DANILO [facility] | [address] | [place] [address] | | | SERVICES, CORE | PARK [...] | + + + + + | [facility] | [address] | [place] [address] | | | SERVICES, CORE | PARK [...] | + + + + + | [employer] | [address] | [place] [address] | | | SERVICES, CORE | LONG [...] [facility] | [address] | [place] [address] | | | HOMERO LAN | LONG [...] | | | LABORATORY | | | [facility] | | | SERVICES, | | | [...] | + + + + + | [facility] | [address] | [place] [address] | | | SERVICES, CORE | LONG [...]
--- OUTSIDE RECORDS SUMMARY | ~2019-01-06 | XMS | Encounter Summary ---
Demographics + + + | Address | [address] | | | [place] [address] | + + + | Home Phone [...] | | | | | [place] [address] | | + + + + + | Thania Mallory | ECON | [address] | | | | | [place] [address] | | + + + + + | Deidra Weldon | ECON | [address] | | | | | [place] | | | | | [address] | | + + + + + Care Team Providers + +------+ + | Care Publicity Consultant Name | Role | Phone | + +------+ + | Shahid Camargo MD | PCP | | + +------+ + Encounter Details +--------+ + + + + | Date | Type | Department | Care Team | Description | +--------+ + + + + | 12/19/ | Documentati | [place] [facility] | Jua nDavid Batres, | | | 2012 | on IP | Pharm[address] | PharmD [address] | | | | | [address] | [facility] | | | | | [place], [place] | [place] [address] | | | | | [address] | [phone] | | | | | | | [...] from patient and her family Pharmacy Preferences: [id number] [address] [place] [address] Updated Outpatient Medications: Current Medication List Name [...] questions regarding this information contact pharmacy, pager #[phone] Thank you, Juan David Batres Pager [phone] signed by Juan David Batres [facility] at [...] [place]ise | | | | | | [place] | | | | | | [address] | | | | | | [phone] | | | | | | | | +--------+ + + + + documented as of this encounter Visit Diagnoses Not on filedocumented in this encounter"
--- OUTSIDE RECORDS SUMMARY | ~2019-01-06 | XMS | Clinical Summary ---
[...] | Author | [facility] (Historical as of | | | 10-20-18) | + + + | Organization | [facility] (Historical as of | | | 10-20-18) [...] Providers + +------+ + | Care Rn Nicu Name | Role | Phone | + [...] | Left: | SYNOVIS | | | [id number] | | 0.8x8cm - [id number]: | | Arm | | | | [...] | | | COVIDIEN | | | [id number] | | 23cmExplanted: Qty: 1 on | | | | | | [id number] / | | 04/08/2014 | | | | | | | | | | | | | | /[id number] | | | | | | | [...] + | BUN/CREAT | 4 | | [facility] | | | | | LABORATORY | + + + + + | CALCIUM | 9.2 | 8.5 - 10.5 mg/dL | [facility] | | | | | LABORATORY | + + + + + | EGFR | 7 (L)Comment: GFR <60: | >60 mL/min/1.73m2 | [facility] | | | CHRONIC KIDNEY DISEASE, | [...] the | | | | | MDRD IDKS traceable | | | | | equation.Testing | | | | | performed at [facility], [address] | | | | [facility], | | | | | [place] [address] | | | + + + + + + + | Specimen | + + | Blood | + + + + + + + | Performing | Address | City/State/Zipcode | Phone Number | | Organization | | | | + + + + + | [facility] | [address] | [place] [address] | [phone] | | LABORATORY | [address]vd. | | [...] OR EXPIRATION ONLY CLINICAL INFORMATION: Post | [facility] | | thoracentesis. COMPARISON: US THORACENTESIS WITH IMAGING GUIDANCE | RADIOLOGY | | (10/18/2018); XR CHEST 1 VIEW (10/17/2018); CHEST TWO VIEWS 02147 | | | (10/17/2018); FINDINGS: Compared to [...] VIEW | | (10/17/2018); CHEST TWO VIEWS [id number] (10/17/2018); | | FINDINGS: | | Compared [...] + + | [facility] | [address] | [place] [address] | | + + + + + [...] pleural space is punctured with an 5 [place] CleanMyCRMesis | | | catheter. Fluid is aspirated [...] pleural space is punctured with an 5 [place] Yueh | | centesis catheter. Fluid is aspirated without complication. The | | patient tolerated the procedure well. No immediate complications. | | Estimated Blood Loss: Minimal. | | IMPRESSION: | | Uncomplicated thoracentesis. 1.5 L of turbid yellow fluid which was | | discarded. | | Procedure performed by Cheryl Connell PA-C. I, Dr. Colten Htuchins, | | supervised the procedure and was [...] + + + + | [facility] | [address] | [place] [address] | | + + + + [...] + + + + | Calculated P [place] | 46 | degrees | [facility] | + + + + + | Calculated R [place] | 127 | degrees | [facility] | + + + + + | Calculated T [place] | 94 | degrees | [facility] [...] | + + + + + | [facility] | [address] | [place] [address] | | + + + + + [...] [address] | | | | | [employer], | | | | | [place] [address] | | | | |Testing performed at [facility], [address] [place] [address] | | | | | | | | + + + + + + + | Specimen | + + | Blood | + + + + + + + | Performing | Address | City/State/Zipcode | Phone Number | | Organization | | | | + + + + + | [facility] | [address] | [place] [address] | [phone] | | LABORATORY | Blvd. | | | + + + + + Magnesium (10/18/2018 5:44 AM) + + + + + | Component | Value | Ref Range | Performed At | + + + + + | MAGNESIUM | 2.4Comment: Testing | 1.7 - 2.4 mg/dL | [facility] | | | performed at [facility], [address] | | LABORATORY | | | [address], | | | | | [place] [address] | | | + + + + + + + | Specimen | + + | Blood | + + + + + + + | Performing | Address | City/State/Zipcode | Phone Number | | Organization | | | | + + + + + | [facility] | [address] | [place] [address] | [phone] | | LABORATORY | Blvd. | | [...] 0.8 | 0.1 - 1.5 mg/dL | [facility] | | | | | LABORATORY | [...] | | | | performed at [facility], [address] | | | | | [facility], | | | | | [place] [address] | | | + + + + + + + | Specimen | + + | Blood | + + + + + + + | Performing | Address | City/State/Zipcode | Phone Number | | Organization | | | | + + + + + | [facility] | [address] | [place] [address] | [phone] | | LABORATORY | Blvd. | | [...] 0.04 | 0.00 - 0.04 ng/mL | [facility] | | | ng/mL or [...] performed at | | | | | [facility];[address] [place] [address] | | | | | [facility];[place] [address] | | | + + + + + + + | Specimen | + + | Blood | + + + + + + + | Performing | Address | City/State/Zipcode | Phone Number | | Organization | | | | + + + + + | [facility] | [address] | [place] [address] | | + + + + + CPK (10/17/2018 6:05 PM)Only the most recent of 2 results within the time period is includ ed. + + + + + | Component | Value | Ref Range | Performed At | + + + + + | CPK | 443 (H)Comment: Testing | 30 - 240 U/L | [facility] | | | performed at [facility];[address] | | | | | [address] [facility] [address] [facility];[place] | | | | | [address] | | | + + + + + + + | Specimen | + + | Blood | + + + + + + + | Performing | Address | City/State/Zipcode | Phone Number | | Organization | | | | + + + + + | [facility] | [address] | [place] [address] | | + + + + + Protime-INR (10/17/2018 8:10 AM) + + + + + | Component | Value | Ref Range | Performed At | + + + + + | INR | 1.2Comment: REFERENCE | | [facility] | | | RANGE:0.9 - [...] | | | | | performed at [facility];[address] | | | | | [address] [facility];[place] | | | | | [address] | | | + + + + + + + | Specimen | + + | Blood | + + + + + + + | Performing | Address | City/State/Zipcode | Phone Number | | Organization | | | | + + + + + | [facility] | [address] | [place] [address] | | + + + + + [...] [facility] | [address] | [place] [address] | | + + + + + [...] + + + + | Calculated P [place] | 33 | degrees | [facility] | + + + + + | Calculated R [place] | -22 | degrees | [facility] | + + + + + | Calculated T [place] | 92 | degrees | [facility] | + + + + + | Diagnosis | Sinus | | [facility] | | | tachycardiaNonspecific T [...] -COMPUTER (500), | | | | | medical transcription editor Daniela Esquivel | | | | | (18) on 10/17/2018 | | | | | 9:07:21 AM | | | + + + + + + + + + + | Performing | Address | City/State/Zipcode | Phone Number | | Organization | | | | + + + + + | [facility] | [address] | [place] [address] | | + + + + + Cardiac Panel (10/17/2018 3:49 AM) + + + + + | Component | Value | Ref Range | Performed At | + + + + + | WBC | 6.63 | 3.80 - 11.00 K/uL | [facility] | + + + + + | RBC | 3.07 (L) | 3.70 - 5.10 M/uL | [facility] | + + + + + | HGB | 10.9 (L) | 11.3 - 15.5 g/dL | [facility] | + + + + + | HCT | 32.7 (L) | 34.0 - 46.0 % | [facility] | + + + + + | MCV | 106.7 (H) | 80.0 - 100.0 fl | [facility] | + + + + + | MCH | 35.6 (H) | 27.0 - 34.0 pg | [facility] | + + + + + | MCHC | 33.4 | 32.0 - 35.5 g/dL | [facility] | + + + + + | RDW SD | 56.4 (H) | 37 - 53 fl | [facility] | + + + + + | PLT | 158 | 150 - 400 K/uL | [facility] | + + + + + [...] + | MORPHOLOGY | 2+ | | [facility] | | | Comment: | | [...] 142 | 135 - 145 mmol/L | [facility] | + + + + + | POTASSIUM | 5.5 (H)Comment: SLT | 3.5 - 4.9 mmol/L | [facility] | | | HEMOLYSIS | | | + + + + + | CHLORIDE | 104 | 99 - 109 mmol/L | [facility] | + + + + + | CO2 | 17 (L) | 23 - 32 mmol/L | [facility] | + + + + + | ANION GAP AGAP | 27 (H) | 5 - 20 mmol/L | [facility] | + + + + [...] 4.0 | 3.6 - 5.0 g/dL | [facility] | + + + + + | GLOBULIN | 2.5 | 1.3 - 4.9 g/dL | [facility] | + + + + + | A/G | 1.6 | 1.0 - 2.4 | [facility] | + + + + + | TBIL | 0.6 | 0.1 - 1.5 mg/dL | [facility] | + + + + + | ALK PHOS | 85 | 35 - 115 U/L | [facility] | + + + + + | AST | 40 | 10 - 45 U/L | [facility] | + + + + + | ALT | 31 | 10 - 65 U/L | [facility] | + + + + + | EGFR | 3 (L)Comment: GFR <60: | >60 mL/min/1.73m2 | [facility] | | | CHRONIC KIDNEY [...] SLT | 30 - 240 U/L | [facility] | | | HEMOLYSIS | | | + + + + + | INR | 1.2Comment: REFERENCE | | [facility] | | | RANGE:0.9 - [...] 23 | 23 - 32 seconds | [facility] | + + + + + | MMB | 17.8 (H) | 0.5 - 3.6 ng/mL | [facility] | + + + + + | CK-MB Index | UNABLE TO | | [facility] | | | CALCULATEComment: | | | | | Testing performed at | | | | | [place];[address] | | | [address];[place] [address] | | | + + + + + + + + + + | Performing | Address | City/State/Zipcode | Phone Number | | Organization | | | | + + + + + | [facility] | [address] | [place] [address] | | + + + + + Brain natriuretic peptide (10/17/2018 3:49 AM) + + + + + | Component | Value | Ref Range | Performed At | + + + + + | BRAIN NATRIURETIC | 1,151.26 (H)Comment: | 0 - 100 pg/mL | [facility] | | PEPTIDE | Testing performed at | | | | | [facility];[address] [place] [address] | | | | | [facility];[place] [address] | | | + + + + + + + + + + | Performing | Address | City/State/Zipcode | Phone Number | | Organization | | | | + + + + + | [facility] | [address] | [place] [address] | | + + + + + ED INFORMATION EXCHANGE (10/17/2018 1:10 AM) + + + | Narrative | Performed At | + + + | [id number] [id number] Criteria Met Care | ED | | Guidelines in 2 in 2 Security and Safety No | INFORMATION | | recent Security Events currently on file ED Care Guidelines There | EXCHANGE | | are currently no ED Care Guidelines for this patient. Please check | | | your facility's medical records system. Care History | | | Medical/Surgical 05/28/18 12:00 AM [facility] | | | PATIENT HAS AN APT WITH PCP DR NICHOLSON ON 09/11/18. | | | PATIENT ACCOUNT ANALYST- DR [phone] Patient is | | | currently established with [facility]. If patient is seen in | | | the ED during business hours. Please contact CHWs at [facility] | | | Clinic. Care Recommendation: This [...] | | mo.) Facility Visits Low Acuity [facility] 4 0 | | | [facility] 12 0 Total 16 0 Note: [...] | or Chief Complaint Oct 17, 2018 [facility] Re[place]. [place] | | | [facility] [place] | | | Emergency Chief Complaint: EXCESS FLUID Aug 20, 2018 [facility]. | | | [place]. 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 [place] 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 [place] [facility] Personal | | [...] Heart | | | failure, unspecified terminal gauger (current) use of opiate | | | analgesic Allergy status to other drugs, medicaments and | | | biological substances status Radiographic dye allergy status | | | Other retirement (current) drug therapy Jun 12, 2018 [facility]. | | | [place]. 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 | | 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 [place] [facility] Pleural Effusion | | | Chronic pulmonary edema July 18, 2018 [facility] | | | [facility]. [place] General Medicine Hypoxemia Personal history | | | of other diseases of urinary system Fever, unspecified | | | Pleural effusion, not elsewhere classified End stage renal | | | disease Dependence on renal dialysis Anemia in chronic | | | kidney disease Pulmonary hypertension, unspecified | | | Chronic right heart failure May 26, 2018 [facility] | | | [facility] General Medicine Acute respiratory distress | [...] 28, | | | 2019 - Current [facility] Portal This patient has registered | | | at the [facility] Emergency Department For more | | | information visit: | | | [id number] | | | [email or web address] PLEASE NOTE: 1. [...] the limitations of applicable | | | [employer] Policies. 3. You should consult directly with the | | | organization that provided a care guideline or other clinical history | | | with any questions about additional information or accuracy or | | | completeness of information provided. 2019 [employer] | | | [employer]fy. - www.[employer] | | + + + + + | Procedure Note | + + | Interface, Lab - 10/17/2018 1:12 AM PDT Formatting of this note may be different | | from the original.[id number] [id number] [facility] Care Guidelines 10 in | | 12 2 in 2Security and SafetyNo recent Security Events currently on fileED Care | | GuidelinesThere are currently no ED Care Guidelines for this patient. Please check your | | facility's medical records system.Care HistoryMedical/Surgical05/28/18 12:00 AM [facility] . | [facility] PATIENT HAS AN APT WITH PCP DR NICHOLSON ON 09/11/18. PATIENT | | ACCOUNT ANALYST- DR [phone] Patient is currently established with | [facility]. If patient is seen in the ED during business hours. Please contact CHWs | | at [facility].Care Recommendation:This patient has had 5 or more [...] Visit Count (12 mo.)Facility Visits Low Acuity [facility] | | Center 4 0 [facility] 12 0 Total 16 0 Note: [...] Chief | | Complaint Oct 17, 2018 [facility] Oct 16, 2018 [facility] . | | [place]even Mckeon. [place]. [place] Emergency Chief Complaint: EXCESS FLUID Aug 20, 2018 [facility] . | | [place]. [place] Emergency Dependence on renal dialysis Chronic kidney | | disease, unspecified Allergy status to other drugs, medicaments and biological | | substances status Chronic pulmonary edema Other retirement (current) drug therapy | | Allergy status [...] dialysis Chest pain, unspecified [facility] 2018 [facility] | | [facility] Emergency Cough Pneumonia | | Hypoxemia [...] biological substances status Jun 19, 2018 [facility] [place] [facility] | | [place]. 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 [place]. 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 Allergy status to other [...] | | term (current) 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 terminal gauger (current) use of opiate analgesic Recent | | Inpatient Visit SummaryDate Facility City State Type Diagnoses or Chief Complaint Aug | | 2018 [facility] [place] [facility] Pleural Effusion Chronic | | pulmonary edema [facility] | | Hypoxemia Personal history of other diseases of urinary system Fever, unspecified | | Pleural effusion, not elsewhere classified End stage renal disease Dependence | | on renal dialysis Anemia in chronic kidney disease Pulmonary hypertension, | | unspecified Chronic right heart failure May 26, 2018 [facility] | | General Medicine Acute respiratory distress Chest pain, unspecified Pleural | | effusion, not elsewhere classified Other ascites Dependence on renal dialysis | | Hyperkalemia Other disorders of phosphorus metabolism End stage renal disease | | Other specified personal risk factors, not elsewhere classified Acute systolic | | (congestive) heart failure Care TeamProvider [facility] Type Phone Fax Service Dates BHARAT, | | TIEN Gallagher MD Internal Medicine May 28, 2018 - Current Collective PortalThis patient | | has registered at the [facility] Emergency Department For more | | information visit: | | [id number] PLEASE | | NOTE: 1. Any care [...] or completeness of information | | provided.2019 [employer] - [email or web address] | | Personal history of other diseases of urinary system | | | |July 18, 2018 [facility] [place] Emergency | | Personal history of nicotine dependence | | Other specified respiratory disorders | | Cough | | Radiographic dye allergy status | | Allergy status to narcotic agent status | | Chronic kidney disease, unspecified | | Allergy status to other drugs, medicaments and biological substances status | | | |Jun 19, 2018 [facility] [place] 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 | | nursing home (current) use of opiate analgesic | | | | | | | |Recent Inpatient Visit Summary | |Date Facility City State Type Diagnoses or Chief Complaint | |Aug 20, 2018 [facility] General Medicine | | Pleural Effusion | | Chronic pulmonary edema | | | |July 18, 2018 [facility] General Medicine | | Hypoxemia | | Personal history of other diseases of urinary system | | Fever, unspecified | | Pleural effusion, not elsewhere classified | | End stage renal disease | | Dependence on renal dialysis | | Anemia in chronic kidney disease | | Pulmonary hypertension, unspecified | | Chronic right heart failure | | | |May 26, 2018 [facility] General Medicine | | Acute respiratory [...] 28, 2018 - Current | | | |[facility] Portal | |This patient has registered at the [facility] Emergency Department | |For more information visit: [id number] | |PLEASE NOTE: | | 1. Any care recommendations and other clinical information are provided as guidelines or for historical purposes only, and providers should exercise their own clinical judgment whe n providing care. | | 2. You may only use this information for purposes of treatment, payment or health care o perations activities, and subject to the limitations of applicable [employer] Policies. | | 3. You should consult directly with the organization that provided a care guideline or o ther clinical history with any questions about additional information or accuracy or complet eness of information provided. | | | |2019 [employer]. - www.[employer] | + + + +---------+ + + [...] +------+-------+ + | MEDICARE | MEDICA | [id number] | | | [address] | | | RE | | | | [place] [address] | | | IP-OP | | | | | + +--------+ +------+-------+ + | MEDICAID | EASTER | [id number] | | | [address] | | | [place] | | | | [place] | | | [place] | | | | [phone] | | | [employer] | | | | | + +--------+ [...] | | | [place] | | | [phone] | [phone] | + +--------+ +--------+ + +
--- OUTSIDE RECORDS SUMMARY | ~2019-01-06 | XMS | Encounter Summary ---
Demographics + + + | Address | [address] | | | [place] [address] | + + + | Home Phone [...] | | | | | [place] [address] | | + + + + + | Thania Mallory | ECON | [address] | | | | | [place] [address] | | + + + + + | Deidra Weldon | ECON | [address] | | | | | [place] | | | | | [address] | | + + + + + Care Team Providers + +------+ + | Care Traffic Or System Dispatcher Name | Role | Phone | + +------+ + PCP | Unavailable | + +------+ + Reason for Visit + + + | Reason | Comments | + + + | Transplant Form | trolley worker 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 | | Update | | + + + Encounter Details +--------+ + + + + | Date | Type | Department | Care Team | Description | +--------+ + + + + | 05/29/ | Abstract | Transplant | Jesus Edmond, | Transplant Form | | 2013 | | Coordinators [phone] | [address] | Update (Social | | | | ANNALISA Hoffmann [facility] | [facility] | worker dates | | | | [place], [place] | [place], [place] | updated) | | | | [address] | [address] | | | | | [phone] | [phone] | | | | | | | [...] Denise | | | | | | [place], [place] | | | | | | [address] | | | | | | [phone] | | | | | | | | +--------+ + + + + documented as of this encounter Visit Diagnoses Not on filedocumented in this encounter"
--- OUTSIDE RECORDS SUMMARY | ~2019-01-06 | XMS | Encounter Summary ---
Demographics + + + | Address | [address] | | | [place] [address] | + + + | Home Phone [...] | | | | | [place] [address] | | + + + + + | Thania Mallory | ECON | [address] | | | | | [place] [address] | | + + + + + | Deidra Weldon | ECON | [address] | | | | | [place] | | | | | [address] | | + + + + + Care Team Providers + +------+ + | Care Boss Dyer Name | Role | Phone | [...] | | | | | [place], | | | | | | [place] [address] | | | +--------+ + + + [...] Denise | | | | | | [place], [place] | | | | | | [address] | | | | | | [phone] | | | | | | | [...] [facility] - | [address] | [place] [address] | | | IMMUNOGENETICS/TRANS | [address] [...] [facility] - | [address] | [place] [address] | | | IMMUNOGENETICS/TRANS | [address] [...] [facility] - | [address] | [place] [address] | | | IMMUNOGENETICS/TRANS | [address] | | | | [facility] | | | | + + + + + documented in this encounter Visit Diagnoses + + | Diagnosis | + + | End stage renal disease (HCC) End stage renal disease | + + documented in this encounter"
--- OUTSIDE RECORDS SUMMARY | ~2019-01-06 | XMS | Encounter Summary ---
Demographics + + + | Address | [address] | | | [place] [address] | + + + | Home Phone [...] | | | | | [place] [address] | | + + + + + | Thania Mallory | ECON | [address] | | | | | [place] [address] | | + + + + + | Deidra Weldon | ECON | [address] | | | | | [place] | | | | | [address] | | + + + + + Care Team Providers + +------+ + | Care Manager Database Name | Role | Phone | + [...] Pool Shun | | | | | [facility] | [facility] | | | | | Rd [place], [place] | [place], [place] | | | | | [address] | [address] | | | | | [phone] | | | +--------+ + + + [...] Denise | | | | | | [place] | | | | | | [address] | | | | | | [phone] | | | | | | | | +--------+ + + + + documented as of this encounter Visit Diagnoses Not on filedocumented in this encounter"
--- OUTSIDE RECORDS SUMMARY | ~2019-01-06 | XMS | Encounter Summary ---
Demographics + + + | Address | [address] | | | [place] [address] | + + + | Home Phone [...] | | | | | [place] [address] | | + + + + + | Thania Mallory | ECON | [address] | | | | | [place] [address] | | + + + + + | Deidra Weldon | ECON | [address] | | | | | [place] | | | | | [address] | | + + + + + Care Team Providers + +------+ + | Care Clinical Lab Assistant Name | Role | Phone [...] | list) | | | | [facility] | [facility] | | | | | Rd [place], [place] | [place], [place] | | | | | [address] | [address] | | | | | [phone] | | | +--------+ + + + [...] 2022 | Encounter | | [address] | | | | | | [place], [place] | | | | | | [address] | | | | | | [phone] | | | | | | | | +--------+ + + + + documented as of this encounter Visit Diagnoses Not on filedocumented in this encounter"
--- OUTSIDE RECORDS SUMMARY | ~2019-01-06 | XMS | Encounter Summary ---
Demographics + + + | Address | [address] | | | [place] [address] | + + + | Home Phone [...] | Author | [facility] | | | and Josephana | + + + | Organization | [facility] [...] Providers + +------+ + | Care Hand Sign Writer Name | Role | Phone | + +------+ + | Tien Nicholson MD | PCP | | + +------+ + Encounter Details +--------+ + + + + | Date | Type | Department | Care Team | Description | +--------+ + + + + | 10/17/ | Hospital | [facility] | Nikita, | SOB (shortness of | | 2019 - | Encounter | [facility] | MD Naresh [address] | breath); Pleural | | | | CARE FLOOR [address] | effusion on right; | | 10/20/ | | [address] | [place] [address] | ESRD needing | | 2019 | | [place], [place] | [phone] | dialysis ([facility]); End | | | | [address] | | stage renal disease | | | | [phone] | | [facility] [...] + | Blood Pressure | 115/68 | 10/19/20182311 PDT | + + + + | Pulse | 77 | 10/19/20182311 PDT | + + + + | Temperature | 36.7 C (98.1 F) | 10/19/20182311 PDT | + + + + | Respiratory Rate | 18 | 10/19/20182311 PDT | + + + + | Oxygen Saturation | - | - | + + + + | Inhaled Oxygen | - | - | | Concentration | | | + + + + | Weight | 65.4 kg (144 lb 2.9 | 10/19/20182311 PDT | | | oz) | | + + + + | Height | 170.2 cm (5' 7") | 10/19/20182311 PDT | + + + + | Body Mass Index | 22.58 | 10/19/2018 2312 PDT | + + + + documented [...] + + +---------+ + + | B Ocazbet-T-Ujsqn | Take 1 tablet by | | [...] Progress Notes Conversion Transaction, Provider Unknown - 10/19/20182357 PDT Nurse Progress Note by Vira Ford RN at 10/19/182357 Author: Vira Ford RN Service: (none) Author Type: Registered Nurse Filed: 10/19/182357 Date of Service: 10/19/182357 Status: Signed Food And Beverage Lead: Vira Ford RN (Registered Nurse) No acute changes from shift assessment. VSS. Pt medicated for pain x1 and nausea x2. End of shift review and 24 hour chart check complete. onversio n Transaction, Provider Unknown - 10/19/20181826 PDTFormatting of this note might be differ ent from the original. Nurse Progress Note by Trent Jovel RN at 10/19/181826 Author: Trent Jovel RN Service: (none) Author Type: Registered Nurse Filed: 10/19/181827 Date of Service: 10/19/181826 Status: Signed Food And Beverage Lead: Trent Jovel RN (Registered Nurse) Dialysis completed today 2.4L removed. Remains on fluid restriction. Medicated for pain x 2. End of shift review complete. Trent Jovel RN onversio n Transaction, Provider Unknown - 10/19/2018 1536 PDTFormatting of this note might be differ ent from the original. Case Management by DORON Diallo at 10/19/18 1536 Author: DORON Diallo Service: (none) Author Type: Public Address System Installer Filed: 10/19/18 1537 Date of Service: 10/19/18 1536 Status: Signed Food And Beverage Lead: DORON Diallo (Public Address System Installer) Discharge planning: Return home when medically ready for discharge. Pt is receiving dialysi s on MWF. Pt is currently on 4L O2, pt may need a home O2 evaluation at discharge. ipul Pabon MD - 10/19/2018 1214 PDT Progress Notes by Antonio Pabon MD at 10/19/18 1214 Author: Antonio Pabon MD Service: Nephrology Author Type: Physician Filed: 10/25/18 6119 Date of Service: 10/19/18 1214 Status: Addendum Food And Beverage Lead: Antonio Pabon MD (Physician) Related Notes: Original Note by Antonio Pabon MD (Physician) filed at 10/25/18 9549 [facility] Service: NEPHROLOGY Progress Note Dara Weldon 23 y.o. [id number] female TIEN NICHOLSON 23-year-old female with [...] AV FISTULA; Surgeon: Rik Simon MD; Location: [facility] OR; Service: Vascula r; Laterality: Left; cephalic AV FISTULA REPAIR Left 03/07/2014 Procedure: AV FISTULA - GRAFT REPAIR/REVISION; Surgeon: Rik Simon MD; Location: [facility]; Service: Vascular; Laterality: Left; DECLOT GRAFT Left 03/07/2014 Procedure: GRAFT - DECLOT; Surgeon: Rik Simon MD; Location: [facility]; Service: Vas cular; Laterality: Left; DIALYSIS FISTULA CREATION N/A 04/08/2014 Procedure: DIALYSIS CATHETER - INSERTION; Surgeon: Rik Simon MD; Location: [facility] ; Service: Vascular; Laterality: N/A; tunneled catheter LAPAROSCOPIC PERITONEAL DIALYSIS CATHETER INSERTION x2 LAPAROSCOPIC PERITONEAL DIALYSIS CATHETER INSERTION Right 07/2013 current dialysis access MWF dialysis RENAL BIOPSY Left 2003 SUPERFICIALIZATION OF AV FISTULA Left 06/24/2014 Procedure: AV FISTULA - SUPERFICIALIZATION; Surgeon: Rik Simon MD; Location: [facility]; Service: Vascular; Laterality: Left; No [...] file Social History Narrative She lives in [facility]. She does not work. She has 1 [...] ral space is punctured with an 5 [facility] centesis catheter. Fluid is aspirated without complication. [...] 1 VIEW (10/17/2018); CHEST TWO V IEWS [id number] (10/17/2018); FINDINGS: Compared to the prior examination [...] MR, severe TR.severe pulmonary hypertens ion Chest r-edm-tqxtumlulxug with pulmonary edema and large right pleural effusion Troponin I-0.151. BNP 1151 ESRD ON HD Tolerated hd/ uf well this am, got uf 2.5 litersAssess daily for need for hd & uf [...] earlier and charting completed later Dictation software, EzLike, used which may contain error for similar sounding words even af ter review. Personal communication requested for any clarification. inci, MD Gerber - 48 PDT Progress Notes by Gerber Pearson MD at 10/19/1848 Author: Gerber Pearson MD Service: Hospitalist Author Type: Physician Filed: 10/19/18 0753 Date of Service: 10/19/1848 Status: Signed Food And Beverage Lead: Gerber Pearson MD (Physician) [facility] Service: Hospitalist Progress Note Hospital [...] with dyspnea Patient was recently discharged from [facility] on 08/23/2018. For full note, please see discha rge summary from hospitalist. In summary, the patient was admitted for noncardiogenic pulmo nary edema after thoracentesis. At that point, prior to admission, she was seen at the [facility] at [facility] in [place] on 08/21 where she underwent right th [...] leaving the hemodialysis due to anxiety problems. Akash nt refers that lately she is having [...] BUN 90 on admission -History of a Leipsic Schnlein purpura -Last hemodialysis approximately 2 weeks [...] Full Code Gerber Pearson MD 10/19/2018 onversion Transaction , Provider Unknown - 10/19/201834 PDT Nurse Progress Note by Vira Ford RN at 10/19/18733 Author: Vira Ford RN Service: (none) Author Type: Registered Nurse Filed: 10/19/18733 Date of Service: 10/19/18733 Status: Signed Food And Beverage Lead: Vira Ford RN (Registered Nurse) No acute changes from shift assessment. VSS. Pt medicated for pain as requested and availab le. End of shift review and 24 hour chart check complete. onversio n Transaction, Provider Unknown - 10/18/20181700 PDTFormatting of this note might be differ ent from the original. Case Management by DORON Diallo at 10/18/18 170 Author: DORON Diallo Service: (none) Author Type: Public Address System Installer Filed: 10/18/181706 Date of Service: 10/18/181700 Status: Signed Food And Beverage Lead: DORON Diallo (Public Address System Installer) Discharge planning: Return home when medically ready for discharge. Fr gela Fernandez MD - 10/18/201846 PDTFormatting of this note might be different from the origina l. Progress Notes by Gerber Pearson MD at 10/18/18745 Author: Gerber Pearson MD Service: Hospitalist Author Type: Physician Filed: 10/18/18 075 Date of Service: 10/18/18745 Status: Signed Food And Beverage Lead: Gerber Pearson MD (Physician) [facility] Service: Hospitalist Progress Note Hospital [...] with dyspnea Patient was recently discharged from [facility] on 08/23/2018. For full note, please see discha rge summary from hospitalist. In summary, the patient was admitted for noncardiogenic pulmo nary edema after thoracentesis. At that point, prior to admission, she was seen at the [facility] at [facility] in [place] on 08/21 where she underwent right th [...] leaving the hemodialysis due to anxiety problems. Akash nt refers that lately she is having [...] BUN 90 on admission -History of a Leips[place] Schnlein purpura -Last hemodialysis approximately 2 weeks [...] Pearson MD 10/18/2018 ntonio Pabon MD - 0745 PDT Progress Notes by Antonio Pabon MD at 10/18/18 0723 Author: Antonio Pabon MD Service: Nephrology Author Type: Physician Filed: 10/25/182002 Date of Service: 10/18/18744 Status: Signed Food And Beverage Lead: Antonio Pabon MD (Physician) [facility] Service: NEPHROLOGY Progress Note Dara Weldon 23 y.o. [id number] female [facility] Day: LOS: 1 day 23-year-old female [...] AV FISTULA; Surgeon: Rik Simon MD; Location: [facility]; Service: Vascula r; Laterality: Left; cephalic AV FISTULA REPAIR Left 03/07/2014 Procedure: AV FISTULA - GRAFT REPAIR/REVISION; Surgeon: Rik Simon MD; Location: [facility]; Service: Vascular; Laterality: Left; DECLOT GRAFT Left 03/07/2014 Procedure: GRAFT - DECLOT; Surgeon: Rik Simon MD; Location: [facility] OR; Service: Vas cular; Laterality: Left; [...] - SUPERFICIALIZATION; Surgeon: Rik Simon MD; Location: [facility] OR; Service: Vascular; Laterality: Left; Prescriptions Prior [...] file Social History Narrative She lives in [facility]. She does not work. She has 1 [...] QTC Calculation (Bezet) 469 ms Calculated P [place] 46 degrees Calculated R [place] 127 degrees Calculated T [place] 94 degrees Diagnosis Normal sinus rhythm Right [...] large right pleural effusion. Signed by: Suha Echols, Fely Sign Date/Time: 10/17/2018 4:25 AM Patient's old [...] uf yesterday, plan for uf with hd todayLOW NA DIET 2GM/ 24 HOURS FLUID RESTRICTION 1.2 LITERS / 24 HOURS DAILY WEIGHTS STRICT I/O 06/2018 echocardiogram-overall left ventricular systolic function is moderate/severely impa ired, EF 30-35%. Restrictive LV diastolic filling pattern, consistent with elevated LA pre ssure and severe dysfunction, grade 3. Moderate MR, severe TR.severe pulmonary hypertens ion Chest o-oyh-mfnqfmcavqmh with pulmonary edema and large right pleural effusion Troponin I-0.151. BNP 1151 HYPERKALEMIA improved s/p hd In the setting of missed hd Low k diet Watch k level closely Acidosis Improved s/p hd In the setting of missed hd ESRD ON HD plan for hd/uf todayAssess daily for need for hd & uf [...] earlier and charting completed later Dictation software, EzLike, used which may contain error for similar sounding words even af ter review. Personal communication requested for any clarification. onversion Transaction, Pr ovider Unknown - 10/18/201851 PDTFormatting of this note might be different from the orig inal. Nurse Progress Note by Ronnie Vargas RN at 10/18/18650 Author: Ronnie Vargas RN Service: (none) Author Type: Registered Nurse Filed: 10/18/1853 Date of Service: 10/18/18650 Status: Signed Food And Beverage Lead: Ronnie Vargas RN (Registered Nurse) Pt alert and oriented X 4. PRN pain med given for back pain. No other acute changes durin g shift. Chart check complete onversio n Transaction, Provider Unknown - 10/17/2018 0948 PDTFormatting of this note might be differ ent from the original. Case Management by DORON Diallo at 10/17/1848 Author: DORON Diallo Service: (none) Author Type: Public Address System Installer Filed: 10/17/1853 Date of Service: 10/17/18947 Status: Signed Food And Beverage Lead: DORON Diallo (Public Address System Installer) 10/17/18 0900 Discharge Planning Evaluation Admitting Diagnosis (SOB) Readmission Other (comment) (Last admit 08/20/18) Living Arrangements Alone Support Systems Family members;Friends/neighbors Type of Residence Private residence House type Apartment Independent with ADL's Yes Independent with Mobility Yes Home Care Services No Caregiver after Discharge No Mental Status Oriented Prior functional status (Independent) Power of Volunteer Services Assistant No Resources Financial concerns No Transportation issues No Patient/Family concerns No Prescription Plan Yes Name of Pharmacy ([facility] in [place]) Previous home health equipment No Anticipated Disposition Facility Type Home PHOTO MASK CLEANER CM met with pt and discussed discharge planning. Pt is a 23 y.o., female admitted for s hortness of breath. Pt resides alone in an apartment at [address] [place] [address]. Pt reported that she has neighbor and friend support. Pt's mother, Thania cheung can be reached at and sister, Saundra can be reached at . Pt reported being independent with ADL's,, IADL's and mobility prior to this admission. Pt denied previous outpatient OT/PT services, home care services and home O2 prior to this admission. Pt reported that she received dialysis from [facility] on MWF prior to this admission . [...] No Anticipated DCP: Return home DORON Diallo, CM onversio n Transaction, Provider Unknown - 10/17/2018743 PDTFormatting of this note might be differ ent from the original. Pharmacy Note by Camilla Moody RPH at 10/17/18743 Author: Camilla Moody RPH Service: Pharmacy Author Type: Pharmacist Filed: 10/17/18743 Date of Service: 10/17/18743 Status: Signed Food And Beverage Lead: Camilla Moody RPH (Pharmacist) Clinical Pharmacy Note: Renal Monitoring Ht Readings from Last 1 Encounters: 10/17/18 1.702 m (5' 7.01") Wt Readings from Last 1 Encounters: 10/17/18 76.1 kg (167 lb 12.3 oz) Serum creatinine: 14.52 mg/dL (H) 10/17/18348 Estimated creatinine clearance: 6.5 mL/min (A) Patient w/ESRD on HD (MWF) Pharmacy dosing for renal function per Dr. Shelton Currently there are no medications requiring renal adjustment. Pharmacy will continue to mo nitor and adjust as clinically indicated. Camilla Moody, PharmD 10/17/2018 7:42 AM Fr gela Frenandez MD - 10/17/2018716 PDTFormatting of this note might be different from the origina l. Progress Notes by Gerber Pearson MD at 10/17/18716 Author: Gerber Pearson MD Service: Hospitalist Author Type: Physician Filed: 10/17/18746 Date of Service: 10/17/18716 Status: Signed Food And Beverage Lead: Gerber Pearson MD (Physician) [facility] Service: Hospitalist Progress Note Hospital [...] with dyspnea Patient was recently discharged from [facility] on 08/23/2018. For full note, please see ketan agudelo summary from hospitalist. In summary, the patient was admitted for noncardiogenic pulmo nary edema after thoracentesis. At that point, prior to admission, she was seen at the [facility] department at [facility] in [place] on 08/21 where she underwent right th [...] edema and again right large pleural effusion. Darrian quarles was hemodynamically stable on 2 L. She was admitted, she is scheduled for hemodialysis today. Currently seen at bedside awake alert though frail-appearing. Denies chest pain no fever Dr. Pabon has been consulted. I did discuss the case over the phone with patient's general milling superintendent Dr. Mahmood, recommends medi oly management and [...] (5' 7.01")] 170.2 cm (5' 7.01") (10/17 0654) Weight: [76 kg (167 lb 8.8 oz)-76.1 kg (167 lb 12.3 oz)] 76.1 kg (167 lb 12.3 oz) (10/17 0 654) BMI (Calculated): [26.3] 26.3 (10/17 06) Physical Exam Constitutional: She appears well-developed. Awake [...] creatinine 14, BUN 90 -History of a Leipsic Schnlein purpura -Last hemodialysis approximately 2 weeks [...] Gerber Pearson MD 10/17/2018 documented in this enc ounter Plan of Treatment +--------+---------+ + + + | Date | Type | Specialty | Care Team | Description | +--------+---------+ + + + | 03/05/ | Office | Pulmonology | Denny Alexanedr | | | 2018 | Visit | | Deny Briggs MD [address] | | | | | [address] | | | | | | [place] [address] | | | | | | [phone] | | | | | | | [...] encounter Results Basic Metabolic Panel (10/19/2018 6:20 PDT) + + + + + + [...] | | | | | | [address], | | | | | | [place] [address] | | | | + + + [...] CHEST 1 VIEW (10/17/2018); CHEST TWO VIEWS [id number] | | | (10/17/2018); FINDINGS: Compared to [...] + | Cedric, Rad Conversion - 11/09/2018 0932 PDT CHEST INSPIRATION OR EXPIRATION ONLY | | CLINICAL INFORMATION: | | Post thoracentesis. | | COMPARISON: | | US THORACENTESIS WITH IMAGING GUIDANCE (10/18/2018); XR CHEST 1 VIEW | | (10/17/2018); CHEST TWO VIEWS [id number] (10/17/2018); | | FINDINGS: | | Compared [...] US Guided Thoracentesis wo Chest Tube (10/18/2018 16:07 PDT) + + | Specimen | + [...] pleural space is punctured with an 5 [facility] centesis | | | catheter. Fluid is aspirated without complication. The patient | | | tolerated the procedure well. No immediate complications. Estimated | | | Blood Loss: Minimal. | | + + + + + | Procedure Note | + + | Sonido Steele Conversion - 11/09/2018 0932 PDT ULTRASOUND GUIDED RIGHT THORACENTESIS | | [...] pleural space is punctured with an [address] [facility] | | centesis catheter. Fluid is [...] W | | | | | | [facility], | | | | | | [place] [address] | | | | | |Testing performed at [facility], [address], [place] [address] | | | | | | | [...] + +---------+ + + Magnesium (10/18/2018 5:44 PDT) + + + + + + | Component | Value | Ref Range | Performed | Pathologist | | | | | At | Signature | + + + + + + | Magnesium | 2.4Comment: Testing | 1.7 - 2.4 mg/dL | EXTERNAL | | | | performed at [facility], [address] | | LAB | | | | [address], | | | | | | [place] [address] | | | | + + + + + + + + | Specimen | + + | Blood | + + + +---------+ + + | Performing | Address | City/State/Zipcode | Phone Number | | Organization | | | | + +---------+ + + | EXTERNAL LAB | | | | + +---------+ + + Comprehensive Metabolic Panel (10/18/2018 5:44 PDT) + + + + + + [...] | | | | | performed at [facility], [address] | | | | | | [facility], | | | | | | [place] [address] | | | | + + + + + + + + | Specimen | + + | Blood | + + + +---------+ + + | Performing | Address | City/State/Zipcode | Phone Number | | Organization | | | | + +---------+ + + | EXTERNAL LAB | | | | + +---------+ + + Troponin I (10/17/2018 18:05 PDT) + + + + + + | Component | Value | Ref Range | Performed | Pathologist | | | | | At | Signature | + + + + + + | Troponin I, | 0.175 (H)Comment: 0.04 | 0.00 - 0.04 | EXTERNAL | | | Qual | ng/mL or | ng/mL | LAB | | | | less Nega | | | | | | tive, repeat testing in | | | | | | four to six hour if | | | | | | clinically indicted0.05 | | | | | | to 0.77 | | | | | | ng/mL Leti | | | | | | picious for myocardial | | | | | | injury. Serial | | | | | | measurements may be | | | | | | necessary to confirm or | | | | | | exclude the diagnosis of | | | | | | acute coronary [...] | | | | | | [facility];[address] | | | | | | Bl;[place] [address] | | | | + + + + + + + + | Specimen | + + | Blood | + + + +---------+ + + | Performing | Address | City/State/Zipcode | Phone Number | | Organization | | | | + +---------+ + + | EXTERNAL LAB | | | | + +---------+ + + CK Total (10/17/2018 18:05 PDT) + + + + + + | Component | Value | Ref Range | Performed | Pathologist | | | | | At | Signature | + + + + + + | CK, Total | 443 (H)Comment: Testing | 30 - 240 U/L | EXTERNAL | | | | performed at [facility];[address] | | LAB | | | | [address];[place] | | | | | | [address] | | | | + + + + + + + + | Specimen | + + | Blood | + + + +---------+ + + | Performing | Address | City/State/Zipcode | Phone Number | | Organization | | | | + +---------+ + + | EXTERNAL LAB | | | | + +---------+ + + Troponin I (10/17/2018 11:59 PDT) + + + + + + | Component | Value | Ref Range | Performed | Pathologist | | | | | At | Signature | + + + + + + | Troponin I, | 0.119 (H)Comment: 0.04 | 0.00 - 0.04 | EXTERNAL | | | Qual | ng/mL or | ng/mL | LAB | | | | less Nega | | | | | | tive, repeat testing in | | | | | | four to six hour if | | | | | | clinically indicted0.05 | | | | | | to 0.77 | | | | | | ng/mL Leti | | | | | | picious for myocardial | | | | | | injury. Serial | | | | | | measurements may be | | | | | | necessary to confirm or | | | | | | exclude the diagnosis of | | | | | | acute coronary [...] | | | | | | [facility];[address] [facility] | | | | | | [facility];[place] [address] | | | | + + + + + + + + | Specimen | + + | Blood | + + + +---------+ + + | Performing | Address | City/State/Zipcode | Phone Number | | Organization | | | | + +---------+ + + | EXTERNAL LAB | | | | + +---------+ + + CK Total (10/17/2018 11:59 PDT) + + + + + + | Component | Value | Ref Range | Performed | Pathologist | | | | | At | Signature | + + + + + + | CK, Total | 623 (H)Comment: Testing | 30 - 240 U/L | EXTERNAL | | | | performed at [facility];[address] | | LAB | | | | [facility];[place] | | | | | | [address] | | | | + + + + + + + + | Specimen | + + | Blood | + + + +---------+ + + | Performing | Address | City/State/Zipcode | Phone Number | | Organization | | | | + +---------+ + + | EXTERNAL LAB | | | | + +---------+ + + Protime INR (10/17/2018 8:10 PDT) + + + + + + [...] | | | | performed at [facility];[address] | | | | | | [address];[place], [place] | | | | | | [address] | | | | + + + [...] + | Cedric, Rad Conversion - 11/09/2018 0932 PDT CHEST [...] | | | | | | [facility];[address] [place] [address] | | | | | | Bl;[place] [address] | | | | + + + + + + + + | Specimen | + + | | + + + +---------+ + + | Performing | Address | City/State/Zipcode | Phone Number | | Organization | | | | + +---------+ + + | EXTERNAL LAB | | | | + +---------+ + + Troponin I (10/17/2018 3:49 PDT) + + + + + + | Component | Value | Ref Range | Performed | Pathologist | | | | | At | Signature | + + + + + + | Troponin I, | 0.151 (H)Comment: 0.04 | 0.00 - 0.04 | EXTERNAL | | | Qual | ng/mL or | ng/mL | LAB | | | | less Nega | | | | | | tive, repeat testing in | | | | | | four to six hour if | | | | | | clinically indicted0.05 | | | | | | to 0.77 | | | | | | ng/mL Leti | | | | | | picious for myocardial | | | | | | injury. Serial | | | | | | measurements may be | | | | | | necessary to confirm or | | | | | | exclude the diagnosis of | | | | | | acute coronary [...] | | | | | | [facility];[address] [facility] | | | | | | [facility];[place] [address] | | | | + + + [...] | | LAB | | | | [facility];[address] [place] [address] | | | | | | [facility];[place] [address] | | | | + + + [...]
--- OUTSIDE RECORDS SUMMARY | ~2019-01-06 | XMS | Encounter Summary ---
Demographics + + + | Address | [address] | | | [place] [address] | + + + | Home Phone [...] | | | | | [place] [address] | | + + + + + | Thania Mallory | ECON | [address] | | | | | [place] [address] | | + + + + + | Deidra Weldon | ECON | [address] | | | | | [place] | | | | | [address] | | + + + + + Care Team Providers + +------+ + | Care Machine Egg Washer Name | Role | Phone | [...] | list) | | | | [facility] | [facility] | | | | | [address] [place], [place] | [place], [place] | | | | | [address] | [address] | | | | | [phone] | | | +--------+ + + + [...] Denise | | | | | | [place], [place] | | | | | | [address] | | | | | | [phone] | | | | | | | | +--------+ + + + + documented as of this encounter Visit Diagnoses Not on filedocumented in this encounter"
--- OUTSIDE RECORDS SUMMARY | ~2019-01-06 | XMS | Encounter Summary ---
Demographics + + + | Address | [address] | | | [place] [address] | + + + | Home Phone [...] | | | | | [place] [address] | | + + + + + | Thania Mallory | ECON | [address] | | | | | [place] [address] | | + + + + + | Deidra Weldon | ECON | [address] | | | | | [place] | | | | | [address] | | + + + + + Care Team Providers + +------+ + | Care Tailing Machine Operator Name | Role | Phone [...] | | [facility] | [place], [place] | | | | | [address] | [address] | | | | | Caro Chan Mailcode: | [phone] | | | | | [address] | | | | | | [place], [place] | | | | | | [address] | | | | | | [phone] | | | +--------+ + + + [...] [place] | | | | | | [address] | | | | | | [phone] | | | | | | | | +--------+ + + + + documented as of this encounter Visit Diagnoses Not on filedocumented in this encounter"
--- OUTSIDE RECORDS SUMMARY | ~2019-01-06 | XMS | Encounter Summary ---
Demographics + + + | Address | [address] | | | [place] [address] | + + + | Home Phone [...] | | | | | [place] [address] | | + + + + + | Thania Mallory | ECON | [address] | | | | | [place] [address] | | + + + + + | Deidra Weldon | ECON | [address] | | | | | [place] | | | | | [address] | | + + + + + Care Team Providers + +------+ + | Care Ball Truing Machine Operator Name | Role | Phone [...] Everywher | | | | ANNAL[address] [facility] | [address] | Query) | | | | Rd [place], [place] | [place], [place] | | | | | [address] | [address] | | | | | [phone] | [phone] | | | | | | | [...] [place] | | | | | | [address] | | | | | | [phone] | | | | | | | | +--------+ + + + + documented as of this encounter Visit Diagnoses Not on filedocumented in this encounter"
--- OUTSIDE RECORDS SUMMARY | ~2019-01-06 | XMS | Encounter Summary ---
Demographics + + + | Address | [address] | | | [place] [address] | + + + | Home Phone [...] Author | [facility] | | | and [place]ana | + + + | Organization | [facility] [...] Team Providers + +------+ + | Care Computational Geneticist Name | Role | Phone | + +------+ + | Jonathan Alonso MD | PCP | | + +------+ + Encounter Details +--------+ + + + + | Date | Type | Department | Care Team | Description | +--------+ + + + + | 10/17/ | Hospital | [facility] | Nikita, | ESRD (end stage | | 2019 - | Encounter | [facility] | MD [address] | renal disease) | | | | CARE FLOOR [address] | ([facility]); Dilated | | 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/ | | [address] | [place] [address] | cardiomyopathy | | 2019 | | [place], [place] | [phone] | ([facility]); | | | | [address] | | Non-cardiogenic | | | | [phone] | Gerber Pearson MD | pulmonary edema; | | | | | [address] | Anemia in ESRD | | | | | [place] [address] | (end-stage renal | | | | | [phone] | disease) ([facility]); | | | | | | [...] failure | | | | | | ([facility]); At high risk | | | [...] + | Blood Pressure | 109/56 | 10/22/20181649 PDT | + + + + | Pulse | 82 | 10/22/20181649 PDT | + + + + | Temperature | 36.4 C (97.5 F) | 10/22/20181649 PDT | + + + + | Respiratory Rate | 16 | 10/22/20181649 PDT | + + + + | Oxygen Saturation | 94% | 10/22/20181649 PDT | + + + + | Inhaled Oxygen | - | - | | Concentration | | | + + + + | Weight | 64.2 kg (141 lb 8.6 | 10/21/2018 0410 PDT | | | oz) | | + + + + | Height | 170.2 cm (5' 7.01") | 10/19/2018 0730 PDT | + + + + | Body Mass Index | 22.17 | 10/19/2018 2312 PDT | + + + + documented in this encounter Discharge Summaries Gerber Pearson MD - 10/22/2018 0722 PDTFormatting of this note might be different from t chacha coleman. [facility]: Hospitalist Physician Discharge Summary Patient ID: [...] is to follow up with her regular warehouse administrative assistant, Dr. Hurtado. DISCHARGE DIAGNOSES: 1. End-stage renal [...] Left; Surgeon: Blake Chavarria MD ; Location: [facility] MAIN OR AV FISTULA REPAIR Left 03/07/2014 Procedure: AV FISTULA - GRAFT REPAIR/REVISION; Surgeon: Rik Simon MD; Location: [facility] IN OR; Service: Vascular; Laterality: Left; biopsy of kidney age 10 DIALYSIS FISTULA CREATION 04/08/2014 Procedure: DIALYSIS CATHETER - INSERTION; Surgeon: Rik Simon MD; Location: [facility] MAIN OR ; Service: Vascular; Laterality: N/A; tunneled catheter.br hemodialysis catheter KIDNEY BIOPSY Left 2003 OTHER SURGICAL HISTORY LAPAROSCOPIC PERITONEAL DIALYSIS CATHETER INSERTION - x2 OTHER SURGICAL HISTORY Right 07/2013 LAPAROSCOPIC PERITONEAL DIALYSIS CATHETER INSERTION - current dialysis access MWF dialysis OTHER SURGICAL HISTORY Left 06/24/2014 SUPERFICIALIZATION OF AV FISTULA - Procedure: AV FISTULA - SUPERFICIALIZATION; Surgeon: Emanuel Simon MD; Location: [facility] MAIN OR; Service: Vascular; Laterality: Left; OTHER SURGICAL HISTORY Left 04/08/2014 AV FISTULA PLACEMENT - Procedure: AV FISTULA; Surgeon: Rik Simon MD; Location: [facility]; Service: Vascular; Laterality: Left; cephalic OTHER SURGICAL HISTORY Left 03/07/2014 DECLOT GRAFT - Procedure: GRAFT - DECLOT; Surgeon: Rik Simon MD; Location: [facility] OR ; Service: Vascular; Laterality: [...] up and dictation of summary. documented in t his encounter Discharge Instructions Instructions Nereida Coburn RN [...] have: Continued coughing Fever Date Last Reviewed: 02/04/201619995153-22[address] [employer] [address] [place] [address]. All righ ts reserved. This information is [...] by your healthcare provider Date Last Reviewed: 12/05/201519997114-9440 [employer] [address] [place] [address]. All righ ts reserved. This information is [...] | | | | | renal disease) ([facility]) | protocol | | | | [...] | | | | | | | giovanni). | | | | | + + [...] + + +---------+ + + | B Uopjqfo-X-Zbrpa | Take 1 tablet by | | [...] Progress Notes Nereida Coburn RN - 10/22/2018 1724 PDTPatient completed dialysis this afternoon. Medicat ed for pain as needed, states pain is tolerable at a 6/10. She is discharged home via privat e vehicle with family members present. Verbal and written instructions provided to patient, all questions addressed. Rx and all belongings gathered. IVs removed and bandages applied. P atient ambulated to car and discharged in stable condition with family/friends. Nereida Coburn RN 10/22/18 17:26 IAAkoAlysia carlos MD - 10/22/2018 0636 PDT Hospital Problem List: Principal Problem: Non-cardiogenic pulmonary [...] I have discussed the case with the CRM FUNCTIONAL ANALYST. I agree with his findings & documentation. [...] & primary/ consulting team. René Anguiano MD arci Weeks RN - 0531 PDTPatient vitals signs stable, no acute changes. End of shift audit complete.E lectronically signed by Marci Weeks RN at 10/22/2018 5:32 Jorge Lomeli RN - 1646 PDTPt had an uneventful shift. Medicated for pain with PRN dilaudid. Pt medica wilmer for nausea with PRN Zofran and Phenergan. Pt to stay one more noc, then have dialysis in morning before discharge. VSS. Status otherwise unchanged. Chart audit complete. Electronic ally signed by Jorge Diehl RN at 10/21/2018 16:47 Antoino Carrasco MD - 10/21/2018 1500 PDT [facility]: NEPHROLOGY Progress Note Dara Weldon 23 y.o. [id number] female Jonathan Alonso MD Hospital Day: [...] Left; Surgeon: Blake Chavarria MD ; Location: [facility] MAIN OR AV FISTULA REPAIR Left 03/07/2014 Procedure: AV FISTULA - GRAFT REPAIR/REVISION; Surgeon: Rik Simon MD; Location: [facility]; Service: Vascular; Laterality: Left; biopsy of kidney age 10 DIALYSIS FISTULA CREATION 04/08/2014 Procedure: DIALYSIS CATHETER - INSERTION; Surgeon: Rik Simon MD; Location: [facility] MAIN OR ; Service: Vascular; Laterality: N/A; tunneled catheter.br hemodialysis catheter KIDNEY BIOPSY Left 2003 OTHER SURGICAL HISTORY LAPAROSCOPIC PERITONEAL DIALYSIS CATHETER INSERTION - x2 OTHER SURGICAL HISTORY Right 07/2013 LAPAROSCOPIC PERITONEAL DIALYSIS CATHETER INSERTION - current dialysis access MWF dialysis OTHER SURGICAL HISTORY Left 06/24/2014 SUPERFICIALIZATION OF AV FISTULA - Procedure: AV FISTULA - SUPERFICIALIZATION; Surgeon: Emanuel Simon MD; Location: [facility] MAIN OR; Service: Vascular; Laterality: Left; OTHER SURGICAL HISTORY Left 04/08/2014 AV FISTULA PLACEMENT - Procedure: AV FISTULA; Surgeon: Rik Simon MD; Location: [facility]; Service: Vascular; Laterality: Left; cephalic OTHER SURGICAL HISTORY Left 03/07/2014 DECLOT GRAFT - Procedure: GRAFT - DECLOT; Surgeon: Rik Simon MD; Location: [facility] MAIN OR ; Service: Vascular; Laterality: Left; [...] file Social History Narrative She lives in [facility]. She does not work. She has [...] MR, severe TR.severe pulmonary hyperten arturo Chest m-rur-eznagezvttca with pulmonary edema and large right pleural [...] earlier and charting completed later Dictation software, TapSurge, used which may contain error for similar sounding words even af ter review. Personal communication requested for any clarification. Portions of my notes may have been carried over for continuity of care.Electronically ananth d by Antonio Benjamin MD at 10/21/2018 15:11 PDTVinGerber pastrana MD - 10/21/2018 0718 PDTFormat ting of this note might be different from the original. [facility] Adult Hospitalist Progress Note Hospital Day: 4 [...] BUN 90 on admission -History of a Cornelius Schnlein purpura -Last hemodialysis approximately 2 weeks [...] 7:18 10/21/2018 arci Weeks RN - 10/21/2018 0550 PDTPatient vitals signs stable, no acute changes. End of shift audit complet e. rent Jovel RN - 10/20/2018 1819 PDTPatient medicated x2 on shift. Dialysis today, 2200 liter taken off. On O2 2 liters. End of shift review complete. Trent Jovel, ABRIL Gerber Fernandez MD - 10/20/2018 0909 PDT [facility] Adult Hospitalist Progress Note Hospital Day: 3 [...] BUN 90 on admission -History of a Cornelius Schnlein purpura -Last hemodialysis approximately 2 weeks [...] Pearson MD 9:09 10/20/2018 documented in this enco unter Plan of Treatment +--------+---------+ + + + | Date | Type | Specialty | Care Team | Description | +--------+---------+ + + + | 03/05/ | Office | Pulmonology | Denny Alexander | | | 2018 | Visit | | Deny Briggs MD [address] | | | | | [address] | | | | | | [place] [address] | | | | | | [phone] | | | | | | | [...] this encounter Results CBC no Differential (10/22/2018 13:10 PDT) + + + + + + [...] [facility] | | | | performed at [facility], [address] | | LABORATORY | | | | [address], | | | | | | [place] [address] | | | | + + + + + + + + | Specimen | + + | Blood | + + + + + + + | Performing | Address | City/State/Zipcode | Phone Number | | Organization | | | | + + + + + | [facility] | [address] | [place] [address] | [phone] | + + + + + Basic Metabolic Panel (10/22/2018 5:33 PDT) + + + + + + [...] 7 (L)Comment: GFR <60: | >60 | [facility] | | | GFR | CHRONIC KIDNEY [...] | | | | | performed at [facility], [address] | | | | | | [facility], | | | | | | [place] [address] | | | | + + + + + + + + | Specimen | + + | Blood | + + + + + + + | Performing | Address | City/State/Zipcode | Phone Number | | Organization | | | | + + + + + | [facility] | [address] | [place] [address] | [phone] | + + + + + Basic Metabolic Panel (10/21/2018 5:48 PDT) + + + + + + [...] 11 (L)Comment: GFR <60: | >60 | [facility] | | | GFR | CHRONIC KIDNEY [...] | | | | | performed at [facility], [address] | | | | | | [facility], | | | | | | [place] [address] | | | | + + + + + + + + | Specimen | + + | Blood | + + + + + + + | Performing | Address | City/State/Zipcode | Phone Number | | Organization | | | | + + + + + | [facility] | [address] | [place] [address] | [phone] | + + + + + Basic Metabolic Panel (10/20/2018 6:41 PDT) + + + + + + [...] | | | | | | MDRD [facility] traceable | | | | | | equation.Testing | | | | | | performed at [facility];[address] | | | | | | [facility];[place], [place] | | | | | | [address] | | | | + + + + + + + + | Specimen | + + | Blood | + + + + + + + | Performing | Address | City/State/Zipcode | Phone Number | | Organization | | | | + + + + + | [facility] | [address] | [place] [address] | [phone] | + + + + + documented in this encounter Visit Diagnoses + + | Diagnosis | + + | Non-cardiogenic pulmonary edema - Primary Pulmonary congestion and hypostasis | + + | ESRD (end stage renal disease) ([facility]) End stage renal disease | + [...] | subcutaneous tissue | + + | Acute respiratory failure with hypoxia (HCC) Acute respiratory failure | + + | Pleural effusion, not [...] dose on 10/20/18 at 0900 | | PDT | | | | + +-------+ +-------+---+---+ +-------+ +-------+---+---+ | Given | 10/22/19 | 75 mg | | | | | 19 8:39 | | | | | | PDT | | | | +-------+ +-------+---+---+ | Given | 10/21/19 | 75 mg | | | | | 19 12:55 | | | | | | PDT | | | | +-------+ +-------+---+---+ + +---+ | | | + +---+ | heparin 5,000 units/mL | | | injection 5,000 Units 5,000 | | | Units, Subcutaneous, EVERY 12 | | | HOURS (2 times per day), First | | | dose on Mon10/19/18 at 1145, Hold | | | for platelets less than [address], | | + +---+ | | | + +---+ + +-------+ +--------+---+---+ | HYDROmorphone (DILAUDID) | Given | 10/22/19 | 0.5 mg | | | | injection 0.5 mg 0.5 mg, | | 19 23:54 | | | | | Intravenous, EVERY 4 HOURS PRN, | | PDT | | | | | Pain, Starting Mon10/19/18 at | | | | | | | 1122, If unable to take PO, | | | | | | + +-------+ +--------+---+---+ +-------+ +--------+---+---+ | Given | 10/22/19 | 0.5 mg | | | | | 19 20:21 | | | | | | PDT | | | | +-------+ +--------+---+---+ | Given | 10/22/19 | 0.5 mg | | | | | 19 16:01 | | | | | | PDT | | | | +-------+ +--------+---+---+ +---+---+ | | | +---+---+ + +-------+ +-------+---+---+ | metoprolol succinate | Given | 10/22/19 | 50 mg | | | | (TOPROL-XL) ER tablet 50 mg 50 | | 19 20:21 | | | | | mg, Oral, NIGHTLY, First dose on | | PDT | | | | | 10/19/18 [...] mg | | | | | 19 21:02 | | | | | | PDT [...] mg | | | | | 19 19:24 | | | | | | PDT | | | | +-------+ +------+---+---+ | Given | 10/22/19 | 4 mg | | | | | 19 8:36 | | | | | | PDT | | | | +-------+ +------+---+---+ +---+---+ | | | +---+---+ + +-------+ +---------+---+---+ | oxyCODONE-acetaminophen | Given | 10/23/19 | 2 | | | | (PERCOCET) 5-325 mg per tablet | | 19 15:58 | tablets | | | | 1-2 tablet 1-2 tablet, Oral, | | PDT | | | | | EVERY [...] | PDT | | | | | 10/19/18 [...] 6:28 | | | | | | PDT | | | | +-------+ +-------+---+---+ | Given | 10/21/19 | 40 mg | | | | | 19 7:43 | | | | | | PDT [...] mg, Oral, EVERY 6 | | 19 23:54 | | | | | HOURS PRN, Nausea, Vomiting, non | | PDT | | | | | responsive to zofran, Starting | | | | | | | 10/19/18 at 1123 | | | | | | + +-------+ +-------+---+---+ +-------+ +-------+---+---+ | Given | 10/22/19 | 25 mg | | | | | 19 16:01 | | | | | | PDT | | | | +-------+ +-------+---+---+ | Given | 10/21/19 | 25 mg | | | | | 19 23:41 | | | | | | PDT | | | | +-------+ +-------+---+---+ +---+---+ | | | +---+---+ + +-------+ + +---+---+ | sevelamer carbonate (RENVELA) | Given | 10/23/19 | 2,400 mg | | | | tablet 2,400 mg 2,400 mg, Oral, | | 19 15:14 | | | | | 3 TIMES [...] 8:12 | | | | | | PDT | | | | +-------+ + +---+---+ | Given | 10/22/19 | 2,400 mg | | | | | 19 16:02 | | | | | | PDT [...] | on Mon10/19/18 at 1145 | | PDT | | | | + +-------+ +-------+---+---+ +-------+ +-------+---+---+ | Given | 10/22/19 | 80 mg | | | | | 19 8:39 | | | | | | PDT | | | | +-------+ +-------+---+---+ | Given | 10/21/19 | 80 mg | | | | | 19 12:55 | | | | | | PDT | | | | +-------+ +-------+---+---+ +---+---+ | | | +---+---+ documented in this encounter
--- OUTSIDE RECORDS SUMMARY | ~2019-01-06 | XMS | Encounter Summary ---
Demographics + + + | Address | [address] | | | [place] [address] | + + + | Home Phone [...] | | | | | [place] [address] | | + + + + + | Thania Mallory | ECON | [address] | | | | | [place] [address] | | + + + + + | Deidra Weldon | ECON | [address] | | | | | [place] | | | | | [address] | | + + + + + Care Team Providers + +------+ + | Care Manager Truck Name | Role | Phone | [...] on | at [address] | [address] | Family sheet & | | | | [address] | [address] | crossmatch report) | | | | [place] Mailcode: | [facility] [place] | | | | | [address] | [address] | | | | | [address] | [phone] | | | | | [place], [place] | | | | | | [address] | | | | | | [phone] | | | +--------+ + + + [...] Denise | | | | | | [place], [place] | | | | | | [address] | | | | | | [phone] | | | | | | | | +--------+ + + + + documented as of this encounter Visit Diagnoses Not on filedocumented in this encounter"
--- OUTSIDE RECORDS SUMMARY | ~2019-01-06 | XMS | Encounter Summary ---
Demographics + + + | Address | [address] | | | [place] [address] | + + + | Home Phone [...] | | | | | [place] [address] | | + + + + + | Thania Mallory | ECON | [address] | | | | | [place] [address] | | + + + + + | Deidra Weldon | ECON | [address] | | | | | [place] | | | | | [address] | | + + + + + Care Team Providers + +------+ + | Care Graphics Manager Name | Role | Phone | [...] Coordinators [address] | RN [address] [facility] | | | | | [address] [facility] | [facility] | | | | | Rd [place], [place] | [place], [place] | | | | | [address] | [address] | | | | | [phone] | | | +--------+ + + + [...] Denise | | | | | | [place], [place] | | | | | | [address] | | | | | | [phone] | | | | | | | | +--------+ + + + + documented as of this encounter Visit Diagnoses Not on filedocumented in this encounter"
--- OUTSIDE RECORDS SUMMARY | ~2019-01-06 | XMS | Encounter Summary ---
Demographics + + + | Address | [address] | | | [place] [address] | + + + | Home Phone [...] Author | [facility] | | | and [place]ana | + + + | Organization | [facility] [...] Team Providers + +------+ + | Care Card Folder Name | Role | Phone | + [...] + + | 11/15/ | Telephone | [facility] | George Torres RN | Lab Results | | 2019 | | [address] | | (Cytology report) | | | | [place] | | | | | | [address] | | | | | | [phone] | | | +--------+ + + + [...] | | | | [place] [address] | | | | | | [phone] | | | | | | | | +--------+---------+ + + + documented as of this encounter Visit Diagnoses Not on filedocumented in this encounter"
--- OUTSIDE RECORDS SUMMARY | ~2019-01-06 | XMS | Encounter Summary ---
Demographics + + + | Address | [address] | | | [place] [address] | + + + | Home Phone [...] | | | | | [place] [address] | | + + + + + | Thania Mallory | ECON | [address] | | | | | [place] [address] | | + + + + + | Deidra Weldon | ECON | [address] | | | | | [place] | | | | | [address] | | + + + + + [...] Visit | Services Inpatient | [address] [facility] | disease, stage V | | | | [address] [facility] | [facility] | (HCC) (Primary Dx) | | | | [address] | [place], [place] | | | | | Mailcode: [facility] | [address] | | | | | [place], [place] | [phone] | | | | | [address] | | | | | | [phone] | | | +--------+---------+ + + + [...] a nutrition perspective. Argentina Mehta, MS, RD, CERTIFIED WELLNESS PROGRAM COORDINATOR, LD documented in this e ncounter Plan of Treatment +--------+ + + + + | Date | Type | Specialty | Care Team | Description | +--------+ + + + + | 05/04/ | Hospital | Adult Acute Care | El Starr MD | | | 2022 | Encounter | | [address] | | | | | | [place], [place] | | | | | | [address] | | | | | | [phone] | | | | | | | | +--------+ + + + + documented as of this encounter Procedures + +--------+ + + + | Procedure Name | Priori | Date/Time | Associated Diagnosis | Comments | | | ty | | | | + +--------+ + + + | [place] MNT INITIAL | Routin | 12/21/2012 | [...]
--- OUTSIDE RECORDS SUMMARY | ~2019-01-06 | XMS | Encounter Summary ---
Demographics + + + | Address | [address] | | | [place] [address] | + + + | Home Phone [...] | | | | | [place] [address] | | + + + + + | Thania Mallory | ECON | [address] | | | | | [place] [address] | | + + + + + | Deidra Weldon | ECON | [address] | | | | | [place] | | | | | [address] | | + + + + + Care Team Providers + +------+ + | Care Chemical Educator Name | Role | Phone | [...] [address] | | | | | [address] [facility] | [facility] | | | | | Rd [place], [place] | [place] | | | | | [address] | [address] | | | | | [phone] | | | +--------+ + + + [...] Denise | | | | | | [place], [place] | | | | | | [address] | | | | | | [phone] | | | | | | | | +--------+ + + + + documented as of this encounter Visit Diagnoses Not on filedocumented in this encounter"
--- OUTSIDE RECORDS SUMMARY | ~2019-01-06 | XMS | Encounter Summary ---
Demographics + + + | Address | [address] | | | [place] [address] | + + + | Home Phone [...] | | | | | [place] [address] | | + + + + + | Thania Mallory | ECON | [address] | | | | | [place] [address] | | + + + + + | Deidra Weldon | ECON | [address] | | | | | [place] | | | | | [address] | | + + + + + Care Team Providers + +------+ + | Care Splicer Machine Operator Name | Role | Phone [...] | | | | | ANNALISA Hoffmann [facility] | [facility] Dustin | | | | | [place], [place] | [place], [place] | | | | | [address] | [address] | | | | | [phone] | [phone] | | | | | | | [...] Denise | | | | | | [place], [place] | | | | | | [address] | | | | | | [phone] | | | | | | | | +--------+ + + + + documented as of this encounter Visit Diagnoses Not on filedocumented in this encounter"
--- OUTSIDE RECORDS SUMMARY | ~2019-01-06 | XMS | Encounter Summary ---
Demographics + + + | Address | [address] | | | [place] [address] | + + + | Home Phone [...] | | | | | [place] [address] | | + + + + + | Thania Mallory | ECON | [address] | | | | | [place] [address] | | + + + + + | Deidra Weldon | ECON | [address] | | | | | [place] | | | | | [address] | | + + + + + Care Team Providers + +------+ + | Care Blasting Clay Miner Name | Role | Phone | [...] | Nephrology at | RN [address] [facility] | | | | | [place] | [facility] | | | | | [facility] | [place], [place] | | | | | [address] | [address] | | | | | [facility] Mailcode: | | | | | | [address] | | | | | | [place], [place] | | | | | | [address] | | | | | | [phone] | | | +--------+ + + + [...] | | | | | | [place], [place] | | | | | | [address] | | | | | | [phone] | | | | | | | | +--------+ + + + + documented as of this encounter Visit Diagnoses + + | Diagnosis | + + | 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
--- OUTSIDE RECORDS SUMMARY | ~2019-01-06 | XMS | Encounter Summary ---
Demographics + + + | Address | [address] | | | [place] [address] | + + + | Home Phone [...] | | | | | [place] [address] | | + + + + + | Thania Mallory | ECON | [address] | | | | | [place] [address] | | + + + + + | Deidra Weldon | ECON | [address] | | | | | [place] | | | | | [address] | | + + + + + Care Team Providers + +------+ + | Care Developer Programmer Name | Role | Phone [...] pt's living/support | | | | Rd [place], [place] | [place], [place] | situation) | | | | [address] | [address] | | | | | [phone] | | | +--------+ + + + [...] Denise | | | | | | [place] | | | | | | [address] | | | | | | [phone] | | | | | | | | +--------+ + + + + documented as of this encounter Visit Diagnoses Not on filedocumented in this encounter"
--- OUTSIDE RECORDS SUMMARY | ~2019-01-06 | XMS | Encounter Summary ---
Demographics + + + | Address | [address] | | | [place] [address] | + + + | Home Phone [...] | Author | [facility] | | | and Josephana | + + + | Organization | [facility] | | | and Josephana [...] Team Providers + +------+ + | Care Network Operations Specialist Name | Role | Phone [...] + + | 11/12/ | Telephone | [facility] | Silvia Rabago | DME (carlie, cmn, | | 2018 | | [address] | ABRIL Hernandez | [facility]) | | | | [place] | | | | | | [address] | | | | | | [phone] | | | +--------+ + + + [...] DAV[place]SON | | | | | | [place] [address] | | | | | | [phone] | | | | | | | | +--------+---------+ + + + documented as of this encounter Visit Diagnoses Not on filedocumented in this encounter"
--- OUTSIDE RECORDS SUMMARY | ~2019-01-06 | XMS | Encounter Summary ---
Demographics + + + | Address | [address] | | | [place] [address] | + + + | Home Phone [...] | | | | | [place] [address] | | + + + + + | Thania Mallory | ECON | [address] | | | | | [place] [address] | | + + + + + | Deidra Weldon | ECON | [address] | | | | | [place] | | | | | [address] | | + + + + + Care Team Providers + +------+ + | Care Preboarder Name | Role | Phone | + [...] | RN [address] | Change (Delisting) | | | | [address] [facility] | [facility] | | | | | Rd [place], [place] | [place], [place] | | | | | [address] | [address] | | | | | [phone] | | | +--------+ + + + [...] Denise | | | | | | [place] | | | | | | [address] | | | | | | [phone] | | | | | | | | +--------+ + + + + documented as of this encounter Visit Diagnoses Not on filedocumented in this encounter"
--- OUTSIDE RECORDS SUMMARY | ~2019-01-06 | XMS | Encounter Summary ---
Demographics + + + | Address | [address] | | | [place] [address] | + + + | Home Phone [...] | | | | | [place] [address] | | + + + + + | Thania Mallory | ECON | [address] | | | | | [place] [address] | | + + + + + | Deidra Weldon | ECON | [address] | | | | | [place] | | | | | [address] | | + + + + + Care Team Providers + +------+ + | Care Principal Network Architect Name | Role | Phone | [...] | Update | | | | [address] [facility] | [facility] | | | | | Rd [place], [place] | [place], [place] | | | | | [address] | [address] | | | | | [phone] | | | +--------+ + + + [...] [place] | | | | | | [address] | | | | | | [phone] | | | | | | | | +--------+ + + + + documented as of this encounter Visit Diagnoses Not on filedocumented in this encounter"
--- OUTSIDE RECORDS SUMMARY | ~2019-01-06 | XMS | Encounter Summary ---
Demographics + + + | Address | [address] | | | [place] [address] | + + + | Home Phone [...] | | | | | [place] [address] | | + + + + + | Thania Mallory | ECON | [address] | | | | | [place] [address] | | + + + + + | Deidra Weldon | ECON | [address] | | | | | [place] | | | | | [address] | | + + + + + Care Team Providers + +------+ + | Care Surgeon'S Assistant Name | Role | Phone | [...] to change | | | | Rd [place], [place] | [place], [place] | clinic appt) | | | | [address] | [address] | | | | | [phone] | | | +--------+ + + + [...] [place] | | | | | | [address] | | | | | | [phone] | | | | | | | | +--------+ + + + + documented as of this encounter Visit Diagnoses Not on filedocumented in this encounter"
--- OUTSIDE RECORDS SUMMARY | ~2019-01-06 | XMS | Encounter Summary ---
Demographics + + + | Address | [address] | | | [place] [address] | + + + | Home Phone [...] | | | | | [place] [address] | | + + + + + | Thania Mallory | ECON | [address] | | | | | [place] [address] | | + + + + + | Deidra Weldon | ECON | [address] | | | | | [place] | | | | | [address] | | + + + + + Care Team Providers + +------+ + | Care Wheat Shipper Name | Role | Phone | + [...] Hoffmann | | | | | [facility] | [facility] | | | | | Rd [place], [place] | [place], [place] | | | | | [address] | [address] | | | | | [phone] | | | +--------+ + + + [...] Denise | | | | | | [place] | | | | | | [address] | | | | | | [phone] | | | | | | | | +--------+ + + + + documented as of this encounter Visit Diagnoses Not on filedocumented in this encounter"
--- OUTSIDE RECORDS SUMMARY | ~2019-01-06 | XMS | Encounter Summary ---
Demographics + + + | Address | [address] | | | [place] [address] | + + + | Home Phone [...] | | | | | [place] [address] | | + + + + + | Thania Mallory | ECON | [address] | | | | | [place] [address] | | + + + + + | Deidra Weldon | ECON | [address] | | | | | [place] | | | | | [address] | | + + + + + Care Team Providers + +------+ + | Care Applications Programmer Name | Role | Phone | [...] | ANNALISA Hoffmann [facility] | [facility] | | | | | Rd [place], [place] | [place], [place] | | | | | [address] | [address] | | | | | [phone] | | | +--------+ + + + [...] Denise | | | | | | [place], [place] | | | | | | [address] | | | | | | [phone] | | | | | | | | +--------+ + + + + documented as of this encounter Visit Diagnoses Not on filedocumented in this encounter"
--- OUTSIDE RECORDS SUMMARY | ~2019-01-06 | XMS | Encounter Summary ---
Demographics + + + | Address | [address] | | | [place] [address] | + + + | Home Phone [...] | | | | | [place] [address] | | + + + + + | Thania Mallory | ECON | [address] | | | | | [place] [address] | | + + + + + | Deidra Weldon | ECON | [address] | | | | | [place] | | | | | [address] | | + + + + + Care Team Providers + +------+ + | Care Plater Production Name | Role | Phone | [...] (Dialysis | | | | ANNALISA Griffin [place] | [address] | unit updated) | | | | [place], [place] | [facility] [place] | | | | | [address] | [address] | | | | | [phone] | [phone] | | | | | | | [...] Denise | | | | | | [place] | | | | | | [address] | | | | | | [phone] | | | | | | | | +--------+ + + + + documented as of this encounter Visit Diagnoses Not on filedocumented in this encounter"
--- OUTSIDE RECORDS SUMMARY | ~2019-01-06 | XMS | Encounter Summary ---
Demographics + + + | Address | [address] | | | [place] [address] | + + + | Home Phone [...] | | | | | [place] [address] | | + + + + + | Thania Mallory | ECON | [address] | | | | | [place] [address] | | + + + + + | Deidra Weldon | ECON | [address] | | | | | [place] | | | | | [address] | | + + + + + Care Team Providers + +------+ + | Care Mutton Puncher Name | Role | Phone | + [...] check-in on | | | | Rd [place], [place] | [place], [place] | psychosocial goals | | | | [address] | [address] | related to listing | | | | [phone] | | status) | +--------+ + + [...] | | | | | | [place], [place] | | | | | | [address] | | | | | | [phone] | | | | | | | | +--------+ + + + + documented as of this encounter Visit Diagnoses Not on filedocumented in this encounter"
--- OUTSIDE RECORDS SUMMARY | ~2019-01-06 | XMS | Encounter Summary ---
Demographics + + + | Address | [address] | | | [place] [address] | + + + | Home Phone [...] | | | | | [place] [address] | | + + + + + | Thania Mallory | ECON | [address] | | | | | [place] [address] | | + + + + + | Deidra Weldon | ECON | [address] | | | | | [place] | | | | | [address] | | + + + + + Care Team Providers + +------+ + | Care Lay Out Worker Name | Role | Phone | [...] | 02/02/ | Telephone | Transplant | Kelis Martinez, | Lab Results | | 2016 | | Coordinators [address] | RN [address] | | | | | ANNALISA [facility] | [facility] | | | | | Rd [place], [place] | [place], [place] | | | | | [address] | [address] | | | | | [phone] | | | +--------+ + + + [...] Denise | | | | | | [place] | | | | | | [address] | | | | | | [phone] | | | | | | | | +--------+ + + + + documented as of this encounter Visit Diagnoses Not on filedocumented in this encounter"
--- OUTSIDE RECORDS SUMMARY | ~2019-01-06 | XMS | Encounter Summary ---
Demographics + + + | Address | [address] | | | [place] [address] | + + + | Home Phone [...] | | | | | [place] [address] | | + + + + + | Thania Mallory | ECON | [address] | | | | | [place] [address] | | + + + + + | Deidra Weldon | ECON | [address] | | | | | [place] | | | | | [address] | | + + + + + Care Team Providers + +------+ + | Care Forensic Engineer Name | Role | Phone | [...] | ) | | | | [facility] | [facility] | | | | | Rd [place], [place] | [place], [place] | | | | | [address] | [address] | | | | | [phone] | | | +--------+ + + + [...] [place] | | | | | | [address] | | | | | | [phone] | | | | | | | | +--------+ + + + + documented as of this encounter Visit Diagnoses Not on filedocumented in this encounter"
--- OUTSIDE RECORDS SUMMARY | ~2019-01-06 | XMS | Encounter Summary ---
Demographics + + + | Address | [address] | | | [place] [address] | + + + | Home Phone [...] | | | | | [place] [address] | | + + + + + | Thania Mallory | ECON | [address] | | | | | [place] [address] | | + + + + + | Deidra Weldon | ECON | [address] | | | | | [place] | | | | | [address] | | + + + + + Care Team Providers + +------+ + | Care Tuckpointer Name | Role | Phone | + [...] (Dialysis | | | | ANNALISA Griffin Irwin | [address] | unit updated) | | | | [place], [place] | [facility] [place] | | | | | [address] | [address] | | | | | [phone] | [phone] | | | | | | | [...] Denise | | | | | | [place] | | | | | | [address] | | | | | | [phone] | | | | | | | | +--------+ + + + + documented as of this encounter Visit Diagnoses Not on filedocumented in this encounter"
--- OUTSIDE RECORDS SUMMARY | ~2019-01-06 | XMS | Encounter Summary ---
Demographics + + + | Address | [address] | | | [place] [address] | + + + | Home Phone [...] | | | | | [place] [address] | | + + + + + | Thania Mallory | ECON | [address] | | | | | [place] [address] | | + + + + + | Deidra Weldon | ECON | [address] | | | | | [place] | | | | | [address] | | + + + + + Care Team Providers + +------+ + | Care Breastfeeding Peer Counselor Name | Role | Phone | [...] (pt | | | | ANNALISA Hoffmann [facility] | [facility] [address] | potential | | | | Rd [place], [place] | [place], [place] | donor/checking in | | | | [address] | [address] | with SW) | | | | [phone] | | | +--------+ + + + [...] [place] | | | | | | [address] | | | | | | [phone] | | | | | | | | +--------+ + + + + documented as of this encounter Visit Diagnoses Not on filedocumented in this encounter"
--- OUTSIDE RECORDS SUMMARY | ~2019-01-06 | XMS | Encounter Summary ---
Demographics + + + | Address | [address] | | | [place] [address] | + + + | Home Phone [...] | | | | | [place] [address] | | + + + + + | Thania Mallory | ECON | [address] | | | | | [place] [address] | | + + + + + | Deidra Weldon | ECON | [address] | | | | | [place] | | | | | [address] | | + + + + + Care Team Providers + +------+ + | Care Stenotype Operator Name | Role | Phone | [...] | | | | | [facility] | [facility] | | | | | Rd [place], [place] | [place], [place] | | | | | [address] | [address] | | | | | [phone] | | | +--------+ + + + [...] | | | | | | [place], [place] | | | | | | [address] | | | | | | [phone] | | | | | | | | +--------+ + + + + documented as of this encounter Visit Diagnoses Not on filedocumented in this encounter"
--- OUTSIDE RECORDS SUMMARY | ~2019-01-06 | XMS | Encounter Summary ---
Demographics + + + | Address | [address] | | | [place] [address] | + + + | Home Phone [...] | | | | | [place] [address] | | + + + + + | Thania Mallory | ECON | [address] | | | | | [place] [address] | | + + + + + | Deidra Weldon | ECON | [address] | | | | | [place] | | | | | [address] | | + + + + + Care Team Providers + +------+ + | Care Barn And Property Manager Name | Role | Phone [...] | | | [place], | [place] [address] | | | | | [place] [address] | [phone] | | | | | | | [...] Denise | | | | | | [place], [place] | | | | | | [address] | | | | | | [phone] | | | | | | | [...] [facility] - | [address] | [place] [address] | | | IMMUNOGENETICS/TRANS | [address] | | | | PLANT LABORATORY | | | | + + + + + documented in this encounter Visit Diagnoses Not on filedocumented in this encounter"
--- OUTSIDE RECORDS SUMMARY | ~2019-01-06 | XMS | Encounter Summary ---
Demographics + + + | Address | [address] | | | [place] [address] | + + + | Home Phone [...] | | | | | [place] [address] | | + + + + + | Thania Mallory | ECON | [address] | | | | | [place] [address] | | + + + + + | Deidra Weldon | ECON | [address] | | | | | [place] | | | | | [address] | | + + + + + Care Team Providers + +------+ + | Care Mechanical Engineering Technologist Name | Role | Phone [...] (Delisting) | | | | ANNALISA Hoffmann [facility] | [facility] | | | | | Rd [place], [place] | [place], [place] | | | | | [address] | [address] | | | | | [phone] | | | +--------+ + + + [...] Denise | | | | | | [place] | | | | | | [address] | | | | | | [phone] | | | | | | | | +--------+ + + + + documented as of this encounter Visit Diagnoses Not on filedocumented in this encounter"
--- OUTSIDE RECORDS SUMMARY | ~2019-01-06 | XMS | Encounter Summary ---
Demographics + + + | Address | [address] | | | [place] [address] | + + + | Home Phone [...] | | | | | [place] [address] | | + + + + + | Thania Mallory | ECON | [address] | | | | | [place] [address] | | + + + + + | Deidra Weldon | ECON | [address] | | | | | [place] | | | | | [address] | | + + + + + Care Team Providers + +------+ + | Care Shopping Investigator Name | Role | Phone | [...] Update | | | | [place] | [facility] | | | | | [facility] | [place], [place] | | | | | [address] [place] | [address] | | | | | [facility] Mailcode: | | | | | | [address] | | | | | | [place], [place] | | | | | | [address] | | | | | | [phone] | | | +--------+ + + + [...] Denise | | | | | | [place] | | | | | | [address] | | | | | | [phone] | | | | | | | | +--------+ + + + + documented as of this encounter Visit Diagnoses Not on filedocumented in this encounter"
--- OUTSIDE RECORDS SUMMARY | ~2019-01-06 | XMS | Encounter Summary ---
Demographics + + + | Address | [address] | | | [place] [address] | + + + | Home Phone [...] | | | | | [place] [address] | | + + + + + | Thania Mallory | ECON | [address] | | | | | [place] [address] | | + + + + + | Deidra Weldon | ECON | [address] | | | | | [place] | | | | | [address] | | + + + + + Care Team Providers + +------+ + | Care Plant Operations Vice President Name | Role | Phone [...] issues with | | | | Rd [place], [place] | [place], [place] | pt's dad) | | | | [address] | [address] | | | | | [phone] | | | +--------+ + + + [...] [place] | | | | | | [address] | | | | | | [phone] | | | | | | | | +--------+ + + + + documented as of this encounter Visit Diagnoses Not on filedocumented in this encounter"
--- OUTSIDE RECORDS SUMMARY | ~2019-01-06 | XMS | Encounter Summary ---
Demographics + + + | Address | [address] | | | [place] [address] | + + + | Home Phone [...] | | | | | [place] [address] | | + + + + + | Thania Mallory | ECON | [address] | | | | | [place] [address] | | + + + + + | Deidra Weldon | ECON | [address] | | | | | [place] | | | | | [address] | | + + + + + Care Team Providers + +------+ + | Care Laboratory Equipment Installer Name | Role | Phone | [...] | | Nephrology at | MD Emanuel [address] | | | | | [place] | [address] | | | | | [facility] | [place], [place] | | | | | [address] | [address] | | | | | [place] Mailcode: | [phone] | | | | | [address] | | | | | | [place], [place] | | | | | | [address] | | | | | | [phone] | | | +--------+ + + + [...] Denise | | | | | | [place], [place] | | | | | | [address] | | | | | | [phone] | | | | | | | [...]
--- OUTSIDE RECORDS SUMMARY | ~2019-01-06 | XMS | Encounter Summary ---
Demographics + + + | Address | [address] | | | [place] [address] | + + + | Home Phone [...] | | | | | [place] [address] | | + + + + + | Thania Mallory | ECON | [address] | | | | | [place] [address] | | + + + + + | Deidra Weldon | ECON | [address] | | | | | [place] | | | | | [address] | | + + + + + Care Team Providers + +------+ + | Care Finance Professor Name | Role | Phone | [...] Shun | | | | | at [facility] | [facility] | | | | | [address] | [place] [address] | | | | | [facility] | | | | | | Mailcode: [id number] [facility] | | | | | | [facility] | | | | | | [facility] | | | | | | [place] [address] | | | | | | [phone] | | | +--------+ + + + [...] [place] | | | | | | [address] | | | | | | [phone] | | | | | | | [...] | e | 11:49 AM | MEDICARE 3981 | procedure are in the | | [...] view image for the detailed interpretation from [employer] results. | CARDIOLOGY | + + + + + | Procedure Note | + + | Interface, Cardiology Results - 12/21/2012 9:38 AM PDT Please click on view image | | for the detailed interpretation from [employer] results. 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
--- OUTSIDE RECORDS SUMMARY | ~2019-01-06 | XMS | Encounter Summary ---
Demographics + + + | Address | [address] | | | [place] [address] | + + + | Home Phone [...] | | | | | [place] [address] | | + + + + + | Thania Mallory | ECON | [address] | | | | | [place] [address] | | + + + + + | Deidra Weldon | ECON | [address] | | | | | [place] | | | | | [address] | | + + + + + Care Team Providers + +------+ + | Care Diversified Crops Supervisor Name | Role | Phone | + +------+ + | Jonathan Alonso MD | PCP | | + +------+ + Encounter Details +--------+ + + + + | Date | Type | Department | Care Team | Description | +--------+ + + + + | 01/20/ | Hospital | Radiology at [facility] | | | | 2014 | Encounter | [address] | | | | | | [place] Mailcode: | | | | | | [address] | | | | | | [place], [place] | | | | | | [address] | | | | | | [phone] | | | +--------+ + + + [...] Denise | | | | | | [place], [place] | | | | | | [address] | | | | | | [phone] | | | | | | | [...] | | + +---------+ + + | [facility] DEPARTMENT OF | | | | | [...]
--- OUTSIDE RECORDS SUMMARY | ~2019-01-06 | XMS | Encounter Summary ---
Demographics + + + | Address | [address] | | | [place] [address] | + + + | Home Phone [...] | | | | | [place] [address] | | + + + + + | Thania Mallory | ECON | [address] | | | | | [place] [address] | | + + + + + | Deidra Weldon | ECON | [address] | | | | | [place] | | | | | [address] | | + + + + + Care Team Providers + +------+ + | Care Soft Crab Shedder Name | Role | Phone | + [...] SW | | | | [address]NAL[address] Hoffmann [facility] | [facility] [address] | clinic visit - | | | | Rd [place], [place] | [place], [place] | psychosocial | | | | [address] | [address] | readiness update) | | | | [phone] | | | +--------+ + + + [...] Denise | | | | | | [place], [place] | | | | | | [address] | | | | | | [phone] | | | | | | | | +--------+ + + + + documented as of this encounter Visit Diagnoses Not on filedocumented in this encounter"
--- OUTSIDE RECORDS SUMMARY | ~2019-01-06 | XMS | Encounter Summary ---
Demographics + + + | Address | [address] | | | [place] [address] | + + + | Home Phone [...] | | | | | [place] [address] | | + + + + + | Thania Mallory | ECON | [address] | | | | | [place] [address] | | + + + + + | Deidra Louise | ECON | [address] | | | | | [place] | | | | | [address] | | + + + + + Care Team Providers + +------+ + | Care Master Control Supervisor Name | Role | Phone | [...] | purpura | [address] | [facility] [address] | | | | | (HCC) HSP | Elias | [address] | | | | | (Amelie | [address] | [address] | | | | | nlein | [place], [place] | Mailcode: | | | | | purpura) | [address] | DC7S | | | | | nephritis | Phone: | Doerarielaecher | | | | | (HCC) | [phone] | [place], [place] | | | | | Hemodialysis | Fax: | [address] | | | | | status | [phone] | Phone: | | | | | (HCC) | | [phone] | | | | | Chronic | | Fax: | | | | | kidney | | [phone] | | | | | disease, | | | | | | | stage V | | | | | | | ([facility]) | | | | | | | [...] | Appointment | | | | AN[facility] | [facility] | | | | | Rd [place], [place] | [place], [place] | | | | | [address] | [address] | | | | | [phone] | | | +--------+ + + + [...] Tariq | | | | | | [place], [place] | | | | | | [address] | | | | | | [phone] | | | | | | | | +--------+ + + + + + +------+--------+ + + | Name | Type | Priori | Associated Diagnoses | Order Schedule | | | | ty | | | + +------+--------+ + + | 12 LEAD ECG | ECG | Routin | Allergic purpura- | Ordered: 01/07/2015 | | | | e | MEDICARE 6348 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 | | | | | | Hemodialysis status | | | | | | ([facility]) Chronic | | | | | | kidney disease, | | | | | | stage V ([facility]) | | + +------+--------+ + + documented [...] BSA | | | | | | (MCANDREWS Z | | | | | | [...] 2:35 PM PST Echocardiography Laboratory | | [address] | | [place] [address] | | ; | | [id number] | | | | Transthoracic Echocardiogram Report | | | | | | NAME: DARA LOUISE Study Date: 01/20/2015 1:18:29 PM | | Order #: [id number] ACC #: [id number] | | | | | | : [...] on 01/20/2015 at 2:35:17 PM | | It Systems Administrator: YARITZA KLINE RD | | | | | | cc: | | | | | | Modes utilized | | TTE 13125; Spectral Doppler 67674; Color flow Doppler 02399; | | | | | | | | Final | + + + + + + + | Performing | Address | City/State/Zipcode | Phone Number | | Organization | | | | + + + + + | [facility] | [address] | [place], [place] | | | CARDIOLOGY | [address] | [address] | | + + + + + [...] + + + + | [facility] | [address] | [place] [address] | | | SERVICES, SPECIAL | PARK [...] | TILA | [address] | [place] [address] | | | DIAGNOSTIC | [address] [...] + | [facility] - | [address] | [place] [address] | | | [place] | | | | + + + [...] + | [facility] | [address] | [place] [address] | | | [place] | | | [...] + | [facility] | [address] | [place] [address] | | | [place] | | | [...] + | [facility] | [address] | [place] [address] | | | [place] | | | | + + + [...] by | | | | | | [address] | | | | | | Lorne [place], [facility],[place] | | | | | | [address] | | | | | | [phone].[employer]. | | | | | | Faisal [...] [facility] | [address] | [place], [place] | | | UNIV PTH - INTFC | | [address] | | + + + + + [...] + | [facility] | [address] | [place] [address] | | | [place] | | | [...] by | | | | | | [address] | | | | | | Lorne Rajendra, [facility],[place] | | | | | | [address] | | | | | | [phone].[employer]. | | | | | | Faisal [...] [facility] | [address] | [place], [place] | | | UNIV PTH - INTFC | | [address] | | + + + + + [...] [facility] | [address] | [place] [address] | | | SERVICES, CORE | PARK [...] [facility] | [address] | [place] [address] | | | SERVICES, CORE | PARK [...] + + + + | [facility] | [address] | [place] [address] | | | SERVICES, CORE | PARK [...] | + + + + + | Szl | [address] | [place] [address] | | | SERVICES, CORE | LONG [...] [facility] | [address] | [place] [address] | | | HOMERO LAN | LONG [...] | | | LABORATORY | | | CYMRAES | | | SERVICES, | | | [...] + + + + | [facility] [employer] | [address] | [place] [address] | | | SERVICES, CORE | LONG [...]
--- OUTSIDE RECORDS SUMMARY | ~2019-01-06 | XMS | Encounter Summary ---
Demographics + + + | Address | [address] | | | [place] [address] | + + + | Home Phone [...] | | | | | [place] [address] | | + + + + + | Thania Mallory | ECON | [address] | | | | | [place] [address] | | + + + + + | Deidra Weldon | ECON | [address] | | | | | [place] | | | | | [address] | | + + + + + Care Team Providers + +------+ + | Care Brazing Machine Operator Name | Role | Phone [...] ANNALISA Hoffmann | | | | | ([facility]) | [address] | [address] | | | | | Procedures | [address] | Rd Mailcode: | | | | | TRANSTHORACI | [place], [place] | DCH8S | | | | | C | [address] | [address]her | | | | | ECHOCARDIOGR | Phone: | [place], [place] | | | | | AM, PEDS | [phone] | [address] | | | | | | Fax: | Phone: | | | | | | [phone] | [phone] | | | | | | | Fax: | | | | | | | [phone] | +--------+--------+ + + + + Reason [...] | Update | | | | [facility] | [facility] | | | | | Rd [place], [place] | [place], [place] | | | | | [address] | [address] | | | | | [phone] | | | +--------+ + + + [...] Denise | | | | | | [place], [place] | | | | | | [address] | | | | | | [phone] | | | | | | | | +--------+ + + + + + +------+--------+ + + | Name | Type | Priori | Associated Diagnoses | Order Schedule | | | | ty | | | + +------+--------+ + + | CELESTINO JAMA RES-EVA | Lab | Routin | Allergic purpura- | Expected: 11/29/2012 | | | | e | MEDICARE 6148 | (Approximate), | | | | | [...] view image for the detailed interpretation from [facility] results. | CARDIOLOGY | + + + + + | Procedure Note | + + | Interface, Cardiology Results - 12/21/2012 9:38 AM PDT Please click on view image | | for the detailed interpretation from [facility] results. | + + + + + + + | Performing | Address | City/State/Zipcode | Phone Number | | Organization | | | | + + + + + | [facility] | [address] | [place], [place] | | | CARDIOLOGY | [address] | [address] | | + + + + + LIT HLA-B WILEY ZHANG (12/20/2012 10:02 AM PDT) + + | Specimen | + + | Blood - Blood | + + + + + + + | Performing | Address | City/State/Zipcode | Phone Number | | Organization | | | | + + + + + | [facility] - | [address] | [place] [address] | | | IMMUNOGENETICS/TRANS | [address] [...] [facility] - | [address] | [place] [address] | | | IMMUNOGENETICS/TRANS | [address] [...] - | [address] | [place], [place] | | | IMMUNOGENETICS/TRANS | [address] [...] - | [address] | [place], [place] | | | IMMUNOGENETICS/TRANS | [address] [...] [facility] - | [address] | [place] [address] | | | IMMUNOGENETICS/TRANS | [address] [...] [facility] - | [address] | [place] [address] | | | IMMUNOGENETICS/TRANS | [address] [...] + +---------+ + + | [facility] DEPARTMENT OF | | | | | [...] [facility] | | | , SERUM | [facility],[address] | | REG UNIV | | | | [address], [facility],[place] | | PTH - INTFC | | | | [address] | | | | | | [phone].[facility]. | | | | | | annalee, [...] [facility] | [address] | [place], [place] | | | UNIV PTH - INTFC | | [address] | | + + + + + [...] | + + + + + | [facility] | [address] | [place] [address] | | | SERVICES, HOMERO | LONG [...] + | [facility] | [address] | [place] [address] | | | SERVICES, CORE | LONG [...] + | [facility] | [address] | [place] [address] | | | [place] | | | [...] + + + + + + | [facility]QU[facility]AR[facility] | Jennifer (A) | None /hpf | [...] LABORATORY | [address] | [place] [address] | | | SERVICES, CORE | PARK [...] | + + + + + | [facility] | [address] | [place] [address] | | | SERVICES, CORE | LONG [...] [facility] | [address] | [place] [address] | | | SERVICES, CORE | LONG [...] - | | | | | | [facility] | | + + + + + + + + | Specimen | + + | Blood - Blood | + + + + + + + | Performing | Address | City/State/Zipcode | Phone Number | | Organization | | | | + + + + + | [facility] | [address] | [place] [address] | | | [place] | | | | + + + [...] at: | | | | | | http://www.cdc.gov/nchstp/tb/pubs/tbfactssheets/483685.htm | | | Test performed by: [facility] [address] | | | [address] [place] [address] | | + + + + + [...] [facility] | [address] | [place] [address] | | | SERVICES, SPECIAL | PARK [...] gene at | DIAGNOSTIC | | nucleotide 17777. Please note that this assay only detects the | LABORATORIES | | [id number] point mutation and therefore a normal result [...] has been analyzed for the presence of X94560C | | | mutation in the prothrombin [...] | | Heterozygotes for the common prothrombin L31440C mutation constitute | | | approximately 2% of the normal white population (1,2). | | | References: 1.) Edwinat et al. Blood 88, 9550-9438 (1996). 2.) Ricardo | | | et al. Circulation 99, 999-1004 (1998). 3.) Al Montalvo, and | | | Chase. Amer J Clin Path 155, 439-47 (2001). This test was | | | developed and its performance characteristics determined by the [facility] | | | [facility]. It has | [...] 1988. [facility] | [facility] is a fully | | | licensed and/or accredited clinical laboratory under CLIA, CAP, and | | | the [facility]. Please note that our lab now [...] + + + | [facility] | [address] | [place] [address] | | | DIAGNOSTIC | [address] [...] [facility] | [address] | [place] [address] | | | SERVICES, CORE | LONG [...] | + + + + + | [facility] | [address] | [place] [address] | | | RIKY, CORE | LONG [...] LABORATORY | [address] | [place] [address] | | | SERVICES, HOMERO | LONG [...] [facility] | [address] | [place] [address] | | | HOMERO LAN | LONG [...] | | | | | | [place] [address] | | | | | | [phone].[email or web address]. | | | | | | Faisal [...] [facility] | [address] | [place], [place] | | | UNIV PTH - INTFC | | [address] | | + + + + + [...] | + + + + + | [facility] | [address] | [place] [address] | | | SERVICES, SPECIAL | PARK [...] + + + + | [facility] | [address] | [place] [address] | | | DIAGNOSTIC | [address] [...] + | [facility] | [address] | [place] [address] | | | [place] | | | [...] + | [facility] | [address] | [place] [address] | | | [place] | | | [...] + | [facility] | [address] | [place] [address] | | | [place] | | | | + + + [...] + | [facility] - | [address] | [place] [address] | | | [place] | | | [...] less......Not | | | | | | Mhbulpdo27.0-21.9 | | | | | | U/mL.........Indetermina [...] available | | | | | | [email or web address] | | | | | | vdx.Performed by [facility] | | | | | | [facility],[address] | | | | | | Rajendra, [facility] [address] | | | | | | [phone].[facility]plab. | | | | | | Faisal [...] [facility] | [address] | [place], [place] | | | UNIV PTH - INTFC | | [address] | | + + + + + [...] + | [facility] | [address] | [place] [address] | | | [place] | | | | + + + [...] + + + | [facility] | [address] | [place] [address] | | | SERVICES, CORE | LONG [...] by | | | | | | [employer] | | | | | | [place], [facility],[place] | | | | | | [address] | | | | | | [phone].[facility]. | | | | | | [facility], Faisal Caraballo, | | | | [...] [facility] | [address] | [place], [place] | | | UNIV PTH - INTFC | | [address] | | + + + + + [...] | [facility] | [address] | [place] [address] | | | SERVICES, CORE | PARK [...] [facility] | [address] | [place] [address] | | | SERVICES, CORE | PARK [...] [facility] | [address] | [place] [address] | | | HOMERO LAN | PARK [...]
--- OUTSIDE RECORDS SUMMARY | ~2019-01-06 | XMS | Encounter Summary ---
Demographics + + + | Address | [address] | | | [place] [address] | + + + | Home Phone [...] | | | | | [place] [address] | | + + + + + | Thania Mallory | ECON | [address] | | | | | [place] [address] | | + + + + + | Deidra Weldon | ECON | [address] | | | | | [place] | | | | | [address] | | + + + + + Care Team Providers + +------+ + | Care Regulatory Auditor Name | Role | Phone | [...] | | | | [facility] | [place], [place] | | | | | [address] | [address] | | | | | [address] Mailcode: | [phone] | | | | | [address] | | | | | | [place], [place] | | | | | | [address] | | | | | | [phone] | | | +--------+ + + + [...] [place] | | | | | | [address] | | | | | | [phone] | | | | | | | | +--------+ + + + + documented as of this encounter Visit Diagnoses Not on filedocumented in this encounter"
--- OUTSIDE RECORDS SUMMARY | ~2019-01-06 | XMS | Encounter Summary ---
Demographics + + + | Address | [address] | | | [place] [address] | + + + | Home Phone [...] | | | | | [place] [address] | | + + + + + | Thania Mallory | ECON | [address] | | | | | [place] [address] | | + + + + + | Deidra Weldon | ECON | [address] | | | | | [place] | | | | | [address] | | + + + + + Care Team Providers + +------+ + | Care Sales Operations Lead Name | Role | Phone | [...] | ANNAL[address] [facility] | [facility] | | | | | Rd [place], [place] | [place], [place] | | | | | [address] | [address] | | | | | [phone] | | | +--------+ + + + [...] Denise | | | | | | [place], [place] | | | | | | [address] | | | | | | [phone] | | | | | | | | +--------+ + + + + documented as of this encounter Visit Diagnoses + + | Diagnosis | + + | 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
--- OUTSIDE RECORDS SUMMARY | ~2019-01-06 | XMS | Encounter Summary ---
Demographics + + + | Address | [address] | | | [place] [address] | + + + | Home Phone [...] [facility] | | | and [place] | + + + | Organization | [facility] | | | and Josephana [...] Providers + +------+ + | Care Sewing Inspector Name | Role | Phone | [...] | | [address] | [place], [address] | | | | | [place], [place] | [place], [place] | | | | | [address] | [address] | | | | | [phone] | | | +--------+--------+ + + + [...] | | | | | [place] [address] | | | | | | [phone] | | | | | | | | +--------+---------+ + + + documented as of this encounter Visit Diagnoses Not on filedocumented in this encounter"
--- OUTSIDE RECORDS SUMMARY | ~2019-01-06 | XMS | Encounter Summary ---
Demographics + + + | Address | [address] | | | [place] [address] | + + + | Home Phone [...] Author | [facility] | | | and [place] | + + + | Organization | [facility] [...] Team Providers + +------+ + | Care Electronic Semiconductor Processor Name | Role | Phone | [...] + + | 11/12/ | Telephone | [facility] | Silvia Rabago | DME (carlie, cmn, | | 2018 | | [address] | ABRIL Hernandez | [facility]) | | | | [place] | | | | | | [address] | | | | | | [phone] | | | +--------+ + + + [...] [address] | | | | | | [place] [address] | | | | | | [phone] | | | | | | | | +--------+---------+ + + + documented as of this encounter Visit Diagnoses Not on filedocumented in this encounter"
--- OUTSIDE RECORDS SUMMARY | ~2019-01-06 | XMS | Encounter Summary ---
Demographics + + + | Address | [address] | | | [place] [address] | + + + | Home Phone [...] | | | | | [place] [address] | | + + + + + | Thania Mallory | ECON | [address] | | | | | [place] [address] | | + + + + + | Deidra Weldon | ECON | [address] | | | | | [place] | | | | | [address] | | + + + + + Care Team Providers + +------+ + | Care Level Vial Inspector And Tester Name | Role | Phone | [...] Shun | | | | | [address]NAL[address] [facility] | [facility] | | | | | Rd [place], [place] | [place], [place] | | | | | [address] | [address] | | | | | [phone] | | | +--------+ + + + [...] [place] | | | | | | [address] | | | | | | [phone] | | | | | | | | +--------+ + + + + documented as of this encounter Visit Diagnoses Not on filedocumented in this encounter"
--- OUTSIDE RECORDS SUMMARY | ~2019-01-06 | XMS | Encounter Summary ---
Demographics + + + | Address | [address] | | | [place] [address] | + + + | Home Phone [...] | | | | | [place] [address] | | + + + + + | Thania Mallory | ECON | [address] | | | | | [place] [address] | | + + + + + | Deidra Weldon | ECON | [address] | | | | | [place] | | | | | [address] | | + + + + + Care Team Providers + +------+ + | Care Demolition Worker Name | Role | Phone | [...] | VERIFICATION) | | | | [facility] | [facility] | | | | | Rd [place], [place] | [place], [place] | | | | | [address] | [address] | | | | | [phone] | | | +--------+ + + + [...] Denise | | | | | | [place] | | | | | | [address] | | | | | | [phone] | | | | | | | | +--------+ + + + + documented as of this encounter Visit Diagnoses Not on filedocumented in this encounter"
--- OUTSIDE RECORDS SUMMARY | ~2019-01-06 | XMS | Encounter Summary ---
Demographics + + + | Address | [address] | | | [place] [address] | + + + | Home Phone [...] | | | | | [place] [address] | | + + + + + | Thania Mallory | ECON | [address] | | | | | [place] [address] | | + + + + + | Deidra Weldon | ECON | [address] | | | | | [place] | | | | | [address] | | + + + + + Care Team Providers + +------+ + | Care Investment Specialist Name | Role | Phone | [...] | | Nephrology at | MD Emanuel [address] | | | | | [place] | [address] | | | | | [facility] | [place], [place] | | | | | [address] | [address] | | | | | [address] Mailcode: | [phone] | | | | | [address] | | | | | | [place], [place] | | | | | | [address] | | | | | | [phone] | | | +--------+ + + + [...] | | | | | | [place], [place] | | | | | | [address] | | | | | | [phone] | | | | | | | [...] [address] | [place] [address] | [phone] | | HOSPITAL | | | | [...] | [address] | [place] [address] | [phone] | | HOSPITAL | | | | + + + + + documented in this encounter Visit Diagnoses Not on filedocumented in this encounter"
--- OUTSIDE RECORDS SUMMARY | ~2019-01-06 | XMS | Encounter Summary ---
Demographics + + + | Address | [address] | | | [place] [address] | + + + | Home Phone [...] | | | | | [place] [address] | | + + + + + | Thania Mallory | ECON | [address] | | | | | [place] [address] | | + + + + + | Deidra Weldon | ECON | [address] | | | | | [place] | | | | | [address] | | + + + + + Care Team Providers + +------+ + | Care Code And Test Clerk Name | Role | Phone | [...] attempt(s) to | | | | Rd [place], [place] | [place], [place] | contact pt re move | | | | [address] | [address] | and new PAF as | | | | [phone] | | listed) | +--------+ + + [...] Denise | | | | | | [place], [place] | | | | | | [address] | | | | | | [phone] | | | | | | | | +--------+ + + + + documented as of this encounter Visit Diagnoses Not on filedocumented in this encounter"
--- OUTSIDE RECORDS SUMMARY | ~2019-01-06 | XMS | Encounter Summary ---
Demographics + + + | Address | [address] | | | [place] [address] | + + + | Home Phone [...] | | | | | [place] [address] | | + + + + + | Thania Mallory | ECON | [address] | | | | | [place] [address] | | + + + + + | Deidra Weldon | ECON | [address] | | | | | [place] | | | | | [address] | | + + + + + Care Team Providers + +------+ + | Care Nailer Hand Name | Role | Phone | [...] - Renal | | | | [address] [facility] | [facility] | | | | | Rd [place], [place] | [place], [place] | | | | | [address] | [address] | | | | | [phone] | | | +--------+ + + + [...] Denise | | | | | | [place], [place] | | | | | | [address] | | | | | | [phone] | | | | | | | [...]
--- OUTSIDE RECORDS SUMMARY | ~2019-01-06 | XMS | Encounter Summary ---
Demographics + + + | Address | [address] | | | [place] [address] | + + + | Home Phone [...] | | | | | [place] [address] | | + + + + + | Thania Mallory | ECON | [address] | | | | | [place] [address] | | + + + + + | Deidra Weldon | ECON | [address] | | | | | [place] | | | | | [address] | | + + + + + Care Team Providers + +------+ + | Care Boiler Blower Name | Role | Phone | [...] | Update | | | | [facility] | [facility] | | | | | Rd [place], [place] | [place], [place] | | | | | [address] | [address] | | | | | [phone] | | | +--------+ + + + [...] [place] | | | | | | [address] | | | | | | [phone] | | | | | | | | +--------+ + + + + documented as of this encounter Visit Diagnoses Not on filedocumented in this encounter"
--- OUTSIDE RECORDS SUMMARY | ~2019-01-06 | XMS | Encounter Summary ---
Demographics + + + | Address | [address] | | | [place] [address] | + + + | Home Phone [...] [facility] | | | and [place] | + + + | Organization | [facility] | [...] Team Providers + +------+ + | Care Rotary Drum Tanner Name | Role | Phone | + [...] + + | 11/15/ | Telephone | [facility] | George Torres RN | Medication Problem | | 2019 | | [address] | | ([address]) | | | | [place] | | | | | | [address] | | | | | | [phone] | | | +--------+ + + + [...] | | | | | [place] [address] | | | | | | [phone] | | | | | | | | +--------+---------+ + + + documented as of this encounter Visit Diagnoses Not on filedocumented in this encounter"
--- OUTSIDE RECORDS SUMMARY | ~2019-01-06 | XMS | Encounter Summary ---
Demographics + + + | Address | [address] | | | [place] [address] | + + + | Home Phone [...] | | | | | [place] [address] | | + + + + + | Thania Mallory | ECON | [address] | | | | | [place] [address] | | + + + + + | Deidra Weldon | ECON | [address] | | | | | [place] | | | | | [address] | | + + + + + Care Team Providers + +------+ + | Care Associate Professor Of Theology Name | Role | Phone | + [...] class) | | | | ANNAL[address] [place] | [facility] | | | | | Rd [place], [place] | [place], [place] | | | | | [address] | [address] | | | | | [phone] | | | +--------+ + + + [...] Denise | | | | | | [place] | | | | | | [address] | | | | | | [phone] | | | | | | | | +--------+ + + + + documented as of this encounter Visit Diagnoses Not on filedocumented in this encounter"
--- OUTSIDE RECORDS SUMMARY | ~2019-01-06 | XMS | Encounter Summary ---
Demographics + + + | Address | [address] | | | [place] [address] | + + + | Home Phone [...] | | | | | [place] [address] | | + + + + + | Thania Mallory | ECON | [address] | | | | | [place] [address] | | + + + + + | Deidra Weldon | ECON | [address] | | | | | [place] | | | | | [address] | | + + + + + Care Team Providers + +------+ + | Care Side Stapler Name | Role | Phone | + [...] with SSA) | | | | Rd [place], [place] | [place], [place] | | | | | [address] | [address] | | | | | [phone] | | | +--------+ + + + [...] Denise | | | | | | [place] | | | | | | [address] | | | | | | [phone] | | | | | | | | +--------+ + + + + documented as of this encounter Visit Diagnoses Not on filedocumented in this encounter"
--- OUTSIDE RECORDS SUMMARY | ~2019-01-06 | XMS | Encounter Summary ---
Demographics + + + | Address | [address] | | | [place] [address] | + + + | Home Phone [...] | | | | | [place] [address] | | + + + + + | Thania Mallory | ECON | [address] | | | | | [place] [address] | | + + + + + | Deidra Weldon | ECON | [address] | | | | | [place] | | | | | [address] | | + + + + + Care Team Providers + +------+ + | Care Coil Connector Repairer Name | Role | Phone | [...] Hoffmann | | | | | ANNALISA [facility] | [facility] | | | | | Rd [place], [place] | [place], [place] | | | | | [address] | [address] | | | | | [phone] | | | +--------+ + + + [...] Denise | | | | | | [place], [place] | | | | | | [address] | | | | | | [phone] | | | | | | | | +--------+ + + + + documented as of this encounter Visit Diagnoses Not on filedocumented in this encounter"
--- OUTSIDE RECORDS SUMMARY | ~2019-01-06 | XMS | Encounter Summary ---
Demographics + + + | Address | [address] | | | [place] [address] | + + + | Home Phone [...] | | | | | [place] [address] | | + + + + + | Thania Mallory | ECON | [address] | | | | | [place] [address] | | + + + + + | Deidra Weldon | ECON | [address] | | | | | [place] | | | | | [address] | | + + + + + Care Team Providers + +------+ + | Care Highway Administrative Engineer Name | Role | Phone | [...] 2005 | Registratio | Anil Eliz[address] | [phone] | | | | n | Rd Mailcode: RPB07 | | | | | | [place], [place] | | | | | | [address] | | | | | | [phone] | | | +--------+ + + + [...] Denise | | | | | | [place], [place] | | | | | | [address] | | | | | | [phone] | | | | | | | [...] | [facility] | | | PATHOLOGY | [place] [facility] Biopsy | | DEPARTMENT | | [...] Garcia | | | | | | [facility], | | | | | | [place] | | | | | | kidney [...] number | | | | | | [id number]/lab | | | | | | [...] wall | | | | | | [id number]: | | | | | | NegativeFibrinogen: [...] | + + + + + | [facility] | [address] | [place] [address] | | | PATHOLOGY | [place] | | | + + + + + | [facility] | [address] | [place] [address] | | | PATHOLOGY | [place] | | | + + + + + documented in this encounter Visit Diagnoses Not on filedocumented in this encounter"
--- OUTSIDE RECORDS SUMMARY | ~2019-01-06 | XMS | Encounter Summary ---
Demographics + + + | Address | [address] | | | [place] [address] | + + + | Home Phone [...] | | | | | [place] [address] | | + + + + + | Thania Mallory | ECON | [address] | | | | | [place] [address] | | + + + + + | Deidra Weldon | ECON | [address] | | | | | [place] | | | | | [address] | | + + + + + Care Team Providers + +------+ + | Care Etl Analyst Name | Role | Phone | [...] Transplant | | | | [address] [facility] | [address] | Evaluation | | | | Rd [place], [place] | [place], [place] | (pre-listing | | | | [address] | [address] | pediatric [place] [address] | | | | [phone] | | update) | +--------+ + + [...] Denise | | | | | | [place] | | | | | | [address] | | | | | | [phone] | | | | | | | | +--------+ + + + + documented as of this encounter Visit Diagnoses Not on filedocumented in this encounter"
--- OUTSIDE RECORDS SUMMARY | ~2019-01-06 | XMS | Encounter Summary ---
Demographics + + + | Address | [address] | | | [place] [address] | + + + | Home Phone [...] | | | | | [place] [address] | | + + + + + | Thania Mallory | ECON | [address] | | | | | [place] [address] | | + + + + + | Deidra Weldon | ECON | [address] | | | | | [place] | | | | | [address] | | + + + + + Care Team Providers + +------+ + | Care Vaccinator Name | Role | Phone | + [...] Rd | | | | | [facility] | [place], [place] | | | | | [address] | [address] | | | | | [address] Mailcode: | [phone] | | | | | [address] | | | | | | [place], [place] | | | | | | [address] | | | | | | [phone] | | | +--------+ + + + [...] Denise | | | | | | [place], [place] | | | | | | [address] | | | | | | [phone] | | | | | | | | +--------+ + + + + documented as of this encounter Visit Diagnoses Not on filedocumented in this encounter"
--- OUTSIDE RECORDS SUMMARY | ~2019-01-06 | XMS | Encounter Summary ---
Demographics + + + | Address | [address] | | | [place] [address] | + + + | Home Phone [...] | | | | | [place] [address] | | + + + + + | Thania Mallory | ECON | [address] | | | | | [place] [address] | | + + + + + | Deidra Weldon | ECON | [address] | | | | | [place] | | | | | [address] | | + + + + + Care Team Providers + +------+ + | Care Dish Up Person Name | Role | Phone | [...] | Update | | | | ANNALISA [facility] | [facility] | | | | | Rd [place], [place] | [place], [place] | | | | | [address] | [address] | | | | | [phone] | | | +--------+ + + + [...] | | | | | | [place], [place] | | | | | | [address] | | | | | | [phone] | | | | | | | | +--------+ + + + + documented as of this encounter Visit Diagnoses Not on filedocumented in this encounter"
--- OUTSIDE RECORDS SUMMARY | ~2019-01-06 | XMS | Encounter Summary ---
Demographics + + + | Address | [address] | | | [place] [address] | + + + | Home Phone [...] | | | | | [place] [address] | | + + + + + | Thania Mallory | ECON | [address] | | | | | [place] [address] | | + + + + + | Deidra Weldon | ECON | [address] | | | | | [place] | | | | | [address] | | + + + + + Care Team Providers + +------+ + | Care Telecom Assistant Name | Role | Phone | + +------+ + | Shahid Camargo MD | PCP | | + +------+ + Encounter Details +--------+ + + + + | Date | Type | Department | Care Team | Description | +--------+ + + + + | 12/20/ | Hospital | Radiology at [facility] | | | | 2012 | Encounter | [address] | | | | | | [address] Mailcode: | | | | | | [address] | | | | | | [place], [place] | | | | | | [address] | | | | | | [phone] | | | +--------+ + + + [...] Denise | | | | | | [place], [place] | | | | | | [address] | | | | | | [phone] | | | | | | | [...] | e | 9:29 AM | MEDICARE 0402 | procedure are in the | | [...] | + +---------+ + + | [facility] DEPARTMENT OF | | | | | RADIOLOGY | | | | + +---------+ + + documented in this encounter Visit Diagnoses + + | Diagnosis | + + | 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
--- OUTSIDE RECORDS SUMMARY | ~2019-01-06 | XMS | Encounter Summary ---
Demographics + + + | Address | [address] | | | [place] [address] | + + + | Home Phone [...] | | | | | [place] [address] | | + + + + + | Thania Mallory | ECON | [address] | | | | | [place] [address] | | + + + + + | Deidra Weldon | ECON | [address] | | | | | [place] | | | | | [address] | | + + + + + Care Team Providers + +------+ + | Care Drafter Commercial Name | Role | Phone | + [...] Mailcode: | | | | | | [address] | [address] | | | | | | [address] | [address] | | | | | | [place], | [place], [place] | | | | | | [place] | [address] | | | | | | [address] | Phone: | | | | | | Phone: | [phone] | | | | | | [phone] | | | | | | | Fax: | | | | | | | [phone] | | +--------+--------+ + + + + Encounter Details +--------+---------+ + + + | Date | Type | Department | Care Team | Description | +--------+---------+ + + + | 05/11/ | Office | Specialty Clinics | Sudhakar Joy | HSP | | 2016 | Visit | at [facility] [address] | [address], [address] | ([place] | | | | [address] | [facility] [facility] [address] | purpura) nephritis | | | | Mailcode: [facility] | [place], [place] | (Primary Dx); Anemia | | | | [place] | [address] | of chronic kidney | | | | [place], [place] | [phone] | failure, stage 5 | | | | [address] | | ([facility]) | | | | [phone] | | | +--------+---------+ + + + [...] [address] Mail code [facility] [place], [place] [address] Estrella Brennan MA - 05/12/2015 10:48 AM [...] | | | | | | [place], [place] | | | | | | [address] | | | | | | [phone] | | | | | | | [...]
--- OUTSIDE RECORDS SUMMARY | ~2019-01-06 | XMS | Encounter Summary ---
Demographics + + + | Address | [address] | | | [place] [address] | + + + | Home Phone [...] | | | | | [place] [address] | | + + + + + | Thania Mallory | ECON | [address] | | | | | [place] [address] | | + + + + + | Deidra Weldon | ECON | [address] | | | | | [place] | | | | | [address] | | + + + + + Care Team Providers + +------+ + | Care It Security Consultant Name | Role | Phone | [...] | | | | | ANNALISA Hoffmann [facility] | [facility] | | | | | Rd [place], [place] | [place], [place] | | | | | [address] | [address] | | | | | [phone] | | | +--------+ + + + [...] Denise | | | | | | [place] | | | | | | [address] | | | | | | [phone] | | | | | | | | +--------+ + + + + documented as of this encounter Visit Diagnoses Not on filedocumented in this encounter"
--- OUTSIDE RECORDS SUMMARY | ~2019-01-06 | XMS | Encounter Summary ---
Demographics + + + | Address | [address] | | | [place] [address] | + + + | Home Phone [...] | | | | | [place] [address] | | + + + + + | Thania Mallory | ECON | [address] | | | | | [place] [address] | | + + + + + | Deidra Weldon | ECON | [address] | | | | | [place] | | | | | [address] | | + + + + + Care Team Providers + +------+ + | Care Cage/Vault Supervisor Name | Role | Phone | [...] | | | | | ANNALISA Hoffmann [facility] | [facility] | | | | | Rd [place], [place] | [place], [place] | | | | | [address] | [address] | | | | | [phone] | | | +--------+ + + + [...] Denise | | | | | | [place] | | | | | | [address] | | | | | | [phone] | | | | | | | | +--------+ + + + + documented as of this encounter Visit Diagnoses Not on filedocumented in this encounter"
--- OUTSIDE RECORDS SUMMARY | ~2019-01-06 | XMS | Clinical Summary ---
Demographics + + + | Address | [address] | | | [place] [address] | + + + | Home Phone [...] | | | | | [place] [address] | | + + + + + | Thania Mallory | ECON | [address] | | | | | [place] [address] | | + + + + + | Deidra Weldon | ECON | [address] | | | | | [place], [place] | | | | | [address] | | + + + + + Care Team Providers + +------+ + | Care Data Analysis Manager Name | Role | Phone | + +------+ + | Jonathan Alonso MD | PCP | | + +------+ + Source Comments DANILO is fully live on both EpicCare Ambulatory and EpicCare InPatient.[facility] Allergies + + + + [...] Denise | | | | | | [place], [place] | | | | | | [address] | | | | | | [phone] | | | | | | | [...] | | | | | | | [address] | | + +--------+ +--------+ + +--------+ | ELECTRIC GAS APPLIANCES DEMONSTRATOR MEDICAID | ELECTRIC GAS APPLIANCES DEMONSTRATOR | [id number] | Effect | | | [...] | RENAL | | for | | [place], | | | | RECIPI | | all | | [place] [address] | | | | ENT | | [...] | | al/Fam | | 1995 | [phone] | [address] [place] | | | kamron | | | 2 (Home) | [address] | | | | | | [phone] | | | | | | | 0 (Work) | | + +--------+ +--------+ + + | CORY ALVES | Wanderbhavin | Mother | [birth year] | | [address] | | | l | | [address] | [phone] | 3 [place] | | | Gamal | | | 2 (Home) | [address] | | | g | | | | | + +--------+ +--------+ + +
--- OUTSIDE RECORDS SUMMARY | ~2019-01-06 | XMS | Encounter Summary ---
Demographics + + + | Address | [address] | | | [place] [address] | + + + | Home Phone [...] | | | | | [place] [address] | | + + + + + | Thania Mallory | ECON | [address] | | | | | [place] [address] | | + + + + + | Deidra Weldon | ECON | [address] | | | | | [place] | | | | | [address] | | + + + + + Care Team Providers + +------+ + | Care Brake Operator Name | Role | Phone | [...] (psychosocial update | | | | Rd [place], [place] | [place], [place] | from pt's mom) | | | | [address] | [address] | | | | | [phone] | | | +--------+ + + + [...] Denise | | | | | | [place] | | | | | | [address] | | | | | | [phone] | | | | | | | | +--------+ + + + + documented as of this encounter Visit Diagnoses Not on filedocumented in this encounter"
--- OUTSIDE RECORDS SUMMARY | ~2019-01-06 | XMS | Encounter Summary ---
Demographics + + + | Address | [address] | | | [place] [address] | + + + | Home Phone [...] | | | | | [place] [address] | | + + + + + | Thania Mallory | ECON | [address] | | | | | [place] [address] | | + + + + + | Deidra Weldon | ECON | [address] | | | | | [place] | | | | | [address] | | + + + + + Care Team Providers + +------+ + | Care Director Of Conservation Name | Role | Phone | + [...] [address] | | | | | ([facility]) | [address] | [place], | | | | | Allergic | [place], [place] | [place] | | | | | purpura | [address] | [address] | | | | | ([facility]) | Phone: | Phone: | | | | | | [phone] | [phone] | | | | | | Fax: | Fax: | | | | | | [phone] | [phone] | +--------+--------+ + + + + Encounter Details +--------+---------+ + + + | Date | Type | Department | Care Team | Description | +--------+---------+ + + + | 12/19/ | Office | Kidney Transplant | Clinic, [place] [address] | Patient on | | 2012 | Visit | at Physician's | [facility] | peritoneal dialysis | | | | Pavilion [address] [place], [place] | (HCC) (Primary Dx); | | | | [address] | [address] | Unspecified | | | | Mailcode: L590 | | essential | | | | [facility] | | hypertension; HSP | | | | [place], [place] | | ([place] | | | | [address]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; | | | | [phone] | | Obesity (BMI | | | [...] on file Social History Narrative Lives in [place], [place] with father and step-mother; 2 dogs; [...] Transplant Selection Confer ence. El Starr MD stakes player, Division of Abdominal Organ Transplantation Professor of Urology CC: Sudhakar Joy MD [address] [place] [address] documented in this encoun ter Plan of Treatment +--------+ + + + + | Date | Type | Specialty | Care Team | Description | +--------+ + + + + | 05/04/ | Hospital | Adult Acute Care | El Starr MD | | | 2022 | Encounter | | [address] | | | | | | [place], [place] | | | | | | [address] | | | | | | [phone] | | | | | | | [...]
--- OUTSIDE RECORDS SUMMARY | ~2019-01-06 | XMS | Encounter Summary ---
Demographics + + + | Address | [address] | | | [place] [address] | + + + | Home Phone [...] | | | | | [place] [address] | | + + + + + | Thania Mallory | ECON | [address] | | | | | [place] [address] | | + + + + + | Deidra Weldon | ECON | [address] | | | | | [place] | | | | | [address] | | + + + + + Care Team Providers + +------+ + | Care Hosiery Mater Name | Role | Phone | + [...] | Nephrology at | MD Emanuel [address] [facility] | Requested (UDS) | | | | [address] | [address] | | | | | [facility] | [place], [place] | | | | | [address] | [address] | | | | | [address] Mailcode: | [phone] | | | | | [address] | | | | | | [place], [place] | | | | | | [address] | | | | | | [phone] | | | +--------+ + + + [...] | | | | | | [place] | | | | | | [address] | | | | | | [phone] | | | | | | | | +--------+ + + + + documented as of this encounter Visit Diagnoses Not on filedocumented in this encounter"
--- OUTSIDE RECORDS SUMMARY | ~2019-01-06 | XMS | Encounter Summary ---
Demographics + + + | Address | [address] | | | [place] [address] | + + + | Home Phone [...] | Author | [facility] | | | and Josephana | + + + | Organization | [facility] | | [...] Providers + +------+ + | Care Liquor Store Manager Name | Role | Phone | [...] [place] | | | | | | [address] | | | | | | [phone] | | | +--------+ + + + [...] | | | | | [place] [address] | | | | | | [phone] | | | | | | | | +--------+---------+ + + + documented as of this encounter Visit Diagnoses Not on filedocumented in this encounter"
--- OUTSIDE RECORDS SUMMARY | ~2019-01-06 | XMS | Encounter Summary ---
Demographics + + + | Address | [address] | | | [place] [address] | + + + | Home Phone [...] | | | | | [place] [address] | | + + + + + | Thania Mallory | ECON | [address] | | | | | [place] [address] | | + + + + + | Deidra Weldon | ECON | [address] | | | | | [place] | | | | | [address] | | + + + + + Care Team Providers + +------+ + | Care Breaker Layer Name | Role | Phone | [...] | | | | | [address] [place], | | | | | | [place] [address] | | | +--------+ + + + [...] Denise | | | | | | [place], [place] | | | | | | [address] | | | | | | [phone] | | | | | | | [...] DANILO - | [address] | [place] [address] | | | IMMUNOGENETICS/TRANS | [address] | | | | [facility] | | | | + + + + + documented in this encounter Visit Diagnoses + + | Diagnosis | + + | End stage renal disease (HCC) End stage renal disease | + + documented in this encounter"
--- OUTSIDE RECORDS SUMMARY | ~2019-01-06 | XMS | Encounter Summary ---
Demographics + + + | Address | [address] | | | [place] [address] | + + + | Home Phone [...] | | | | | [place] [address] | | + + + + + | Thania Mallory | ECON | [address] | | | | | [place] [address] | | + + + + + | Deidra Weldon | ECON | [address] | | | | | [place] | | | | | [address] | | + + + + + Care Team Providers + +------+ + | Care Skin Washer Name | Role | Phone | [...] Update | | | | ANNALISA Hoffmann [facility] | [facility] | | | | | Dust[place], [place] | [place], [place] | | | | | [address] | [address] | | | | | [phone] | [phone] | | | | | | | [...] Denise | | | | | | [place], [place] | | | | | | [address] | | | | | | [phone] | | | | | | | | +--------+ + + + + documented as of this encounter Visit Diagnoses Not on filedocumented in this encounter"
--- OUTSIDE RECORDS SUMMARY | ~2019-01-06 | XMS | Encounter Summary ---
Demographics + + + | Address | [address] | | | [place] [address] | + + + | Home Phone [...] | | | | | [place] [address] | | + + + + + | Thania Mallory | ECON | [address] | | | | | [place] [address] | | + + + + + | Deidra Weldon | ECON | [address] | | | | | [place] | | | | | [address] | | + + + + + Care Team Providers + +------+ + | Care Cognos Architect Name | Role | Phone | [...] | Family sheet) | | | | [address] | [address] | | | | | [address] Mailcode: | [place], [place] | | | | | [address] Physician's | [address] | | | | | [address] | [phone] | | | | | [place], [place] | | | | | | [address] | | | | | | [phone] | | | +--------+ + + + [...] | | | | | | [place] | | | | | | [address] | | | | | | [phone] | | | | | | | | +--------+ + + + + documented as of this encounter Visit Diagnoses Not on filedocumented in this encounter"
--- OUTSIDE RECORDS SUMMARY | ~2019-01-06 | XMS | Encounter Summary ---
Demographics + + + | Address | [address] | | | [place] [address] | + + + | Home Phone [...] | | | | | [place] [address] | | + + + + + | Thania Mallory | ECON | [address] | | | | | [place] [address] | | + + + + + | Deidra Weldon | ECON | [address] | | | | | [place] | | | | | [address] | | + + + + + Care Team Providers + +------+ + | Care Healthcare Manager Name | Role | Phone | [...] Mailcode: | | | | | | [address] | [address] | | | | | | [address] | [address] | | | | | | [place], | [place], [place] | | | | | | [place] | [address] | | | | | | [address] | Phone: | | | | | | Phone: | [phone] | | | | | | [phone] | | | | | | | Fax: | | | | | | | [phone] | | +--------+--------+ + + + + Encounter Details +--------+---------+ + + + | Date | Type | Department | Care Team | Description | +--------+---------+ + + + | 11/16/ | Office | Specialty Clinics | Sudhakar Joy | Allergic purpura- | | 2015 | Visit | at [facility] [address] | [place]manuel, [address] | MEDICARE [address] | | | | [address] | [address] | (Primary Dx); HSP | | | | Mailcode: [facility] | [place], [place] | ([place] | | | | [address] | [address] | purpura) nephritis; | | | | [place], [place] | [phone] | Anemia of chronic | | | | [address] | | kidney failure, | | | | [phone] | Rtx, [address] | unspecified stage | | | | | [address] | | | | | | Road [place], [place] | | | | | | [address] | | +--------+---------+ + + + Social [...] soon. Have your friend call Brittney about [phone] Sudhakar Joy MD documented in this encounter [...] [facility] [address] Mail code [facility] [place], [place] [address] documented in this encounter Plan of Treatment +--------+ + + + + | Date | Type | Specialty | Care Team | Description | +--------+ + + + + | 05/04/ | Hospital | Adult Acute Care | El Starr MD | | | 2022 | Encounter | | [address] | | | | | | [place], [place] | | | | | | [address] | | | | | | [phone] | | | | | | | [...]
--- OUTSIDE RECORDS SUMMARY | ~2019-01-06 | XMS | Encounter Summary ---
Demographics + + + | Address | [address] | | | [place] [address] | + + + | Home Phone [...] | | | | | [place] [address] | | + + + + + | Thania Mallory | ECON | [address] | | | | | [place] [address] | | + + + + + | Deidra Weldon | ECON | [address] | | | | | [place] | | | | | [address] | | + + + + + Care Team Providers + +------+ + | Care Sales Expert Name | Role | Phone | [...] Coordinators 3181 | RN [address] [facility] | | | | | ANNALISA [facility] | [facility] | | | | | Rd [place], [place] | [place], [place] | | | | | [address] | [address] | | | | | [phone] | | | +--------+ + + + [...] | | | | | | [place], [place] | | | | | | [address] | | | | | | [phone] | | | | | | | | +--------+ + + + + documented as of this encounter Visit Diagnoses Not on filedocumented in this encounter"
--- OUTSIDE RECORDS SUMMARY | ~2019-01-06 | XMS | Encounter Summary ---
Demographics + + + | Address | [address] | | | [place] [address] | + + + | Home Phone [...] | | | | | [place] [address] | | + + + + + | Thania Mallory | ECON | [address] | | | | | [place] [address] | | + + + + + | Deidra Weldon | ECON | [address] | | | | | [place] | | | | | [address] | | + + + + + Care Team Providers + +------+ + | Care Web Services Manager Name | Role | Phone [...] Rd | | | | | [facility] | [place], [place] | | | | | [address] | [address] | | | | | Caro Chan Mailcode: | [phone] | | | | | [address] | | | | | | [place], [place] | | | | | | [address] | | | | | | [phone] | | | +--------+ + + + [...] Denise | | | | | | [place], [place] | | | | | | [address] | | | | | | [phone] | | | | | | | | +--------+ + + + + documented as of this encounter Visit Diagnoses Not on filedocumented in this encounter"
--- OUTSIDE RECORDS SUMMARY | ~2019-01-06 | XMS | Encounter Summary ---
Demographics + + + | Address | [address] | | | [place] [address] | + + + | Home Phone [...] | | | | | [place] [address] | | + + + + + | Thania Mallory | ECON | [address] | | | | | [place] [address] | | + + + + + | Deidra Weldon | ECON | [address] | | | | | [place] | | | | | [address] | | + + + + + Care Team Providers + +------+ + | Care Reed Or Wind Instrument Tuner Name | Role | Phone | + [...] | | ANNALISA [facility] | [facility] | | | | | Rd [place], [place] | [place], [place] | | | | | [address] | [address] | | | | | [phone] | | | +--------+ + + + [...] | | | | | | [place], [place] | | | | | | [address] | | | | | | [phone] | | | | | | | | +--------+ + + + + documented as of this encounter Visit Diagnoses Not on filedocumented in this encounter"
--- OUTSIDE RECORDS SUMMARY | ~2019-01-06 | XMS | Encounter Summary ---
Demographics + + + | Address | [address] | | | [place] [address] | + + + | Home Phone [...] | | | | | [place] [address] | | + + + + + | Thania Mallory | ECON | [address] | | | | | [place] [address] | | + + + + + | Deidra Weldon | ECON | [address] | | | | | [place] | | | | | [address] | | + + + + + Care Team Providers + +------+ + | Care Configuration Management Architect Name | Role | Phone | [...] Change (Close | | | | ANNALISA [facility] | [facility] | referral) | | | | Rd [place], [place] | [facility] [place] | | | | | [address] | [address] | | | | | [phone] | | | +--------+ + + + [...] [place] | | | | | | [address] | | | | | | [phone] | | | | | | | | +--------+ + + + + documented as of this encounter Visit Diagnoses Not on filedocumented in this encounter"
--- OUTSIDE RECORDS SUMMARY | ~2019-01-06 | XMS | Encounter Summary ---
Demographics + + + | Address | [address] | | | [place] [address] | + + + | Home Phone [...] | | | | | [place] [address] | | + + + + + | Thania Mallory | ECON | [address] | | | | | [place] [address] | | + + + + + | Deidra Weldon | ECON | [address] | | | | | [place] | | | | | [address] | | + + + + + Care Team Providers + +------+ + | Care Wooden Box Maker Name | Role | Phone | [...] (pt | | | | ANNALISA [facility] | [facility] [address] | potential | | | | Rd [place], [place] | [place], [place] | donor/checking in | | | | [address] | [address] | with SW) | | | | [phone] | | | +--------+ + + + [...] [place] | | | | | | [address] | | | | | | [phone] | | | | | | | | +--------+ + + + + documented as of this encounter Visit Diagnoses Not on filedocumented in this encounter"
--- OUTSIDE RECORDS SUMMARY | ~2019-01-06 | XMS | Encounter Summary ---
Demographics + + + | Address | [address] | | | [place] [address] | + + + | Home Phone [...] | | | | | [place] [address] | | + + + + + | Thania Mallory | ECON | [address] | | | | | [place] [address] | | + + + + + | Deidra Weldon | ECON | [address] | | | | | [place] | | | | | [address] | | + + + + + Care Team Providers + +------+ + | Care Paint Tinter Name | Role | Phone | + [...] to change | | | | Rd [place], [place] | [place], [place] | clinic appt) | | | | [address] | [address] | | | | | [phone] | | | +--------+ + + + [...] [place] | | | | | | [address] | | | | | | [phone] | | | | | | | | +--------+ + + + + documented as of this encounter Visit Diagnoses Not on filedocumented in this encounter"
--- OUTSIDE RECORDS SUMMARY | ~2019-01-06 | XMS | Encounter Summary ---
Demographics + + + | Address | [address] | | | [place] [address] | + + + | Home Phone [...] | | | | | [place] [address] | | + + + + + | Thania Mallory | ECON | [address] | | | | | [place] [address] | | + + + + + | Deidra Weldon | ECON | [address] | | | | | [place] | | | | | [address] | | + + + + + Care Team Providers + +------+ + | Care Associate Pathologist Name | Role | Phone | + [...] | | [facility] | [place], [place] | | | | | [address] | [address] | | | | | Caro Chan Mailcode: | [phone] | | | | | [address] | | | | | | [place], [place] | | | | | | [address] | | | | | | [phone] | | | +--------+ + + + [...] [place] | | | | | | [address] | | | | | | [phone] | | | | | | | | +--------+ + + + + documented as of this encounter Visit Diagnoses Not on filedocumented in this encounter"
--- OUTSIDE RECORDS SUMMARY | ~2019-01-06 | XMS | Encounter Summary ---
Demographics + + + | Address | [address] | | | [place] [address] | + + + | Home Phone [...] | | | | | [place] [address] | | + + + + + | Thania Mallory | ECON | [address] | | | | | [place] [address] | | + + + + + | Deidra Weldon | ECON | [address] | | | | | [place] | | | | | [address] | | + + + + + Care Team Providers + +------+ + | Care Company Controller Name | Role | Phone | [...] | | | | | TRANSTHORACI | [place], [place] | [facility] | | | | | C | [address] | [facility] | | | | | ECHOCARDIOGR | Phone: | [place], [place] | | | | | AM, PEDS | [phone] | [address] | | | | | | Fax: | Phone: | | | | | | [phone] | [phone] | | | | | | | Fax: | | | | | | | [phone] | +--------+--------+ + + + + Reason [...] | | | | | TRANSTHORACI | [place], [place] | [facility] | | | | | C | [address] | [place] | | | | | ECHOCARDIOGR | Phone: | [place], [place] | | | | | AM, PEDS | [phone] | [address] | | | | | | Fax: | Phone: | | | | | | [phone] | [phone] | | | | | | | Fax: | | | | | | | [phone] | +--------+--------+ + + + + Encounter Details +--------+ + + + + | Date | Type | Department | Care Team | Description | +--------+ + + + + | 12/20/ | Hospital | Pediatric Echo Lab | | | | 2012 | Encounter | at [facility] [address] | | | | | | [address] | | | | | | Mailcode: DCH8S | | | | | | [place] | | | | | | [place], [place] | | | | | | [address] | | | | | | [phone] | | | +--------+ + + + [...] Denise | | | | | | [place], [place] | | | | | | [address] | | | | | | [phone] | | | | | | | [...]
--- OUTSIDE RECORDS SUMMARY | ~2019-01-06 | XMS | Encounter Summary ---
Demographics + + + | Address | [address] | | | [place] [address] | + + + | Home Phone [...] | | | | | [place] [address] | | + + + + + | Thania Mallory | ECON | [address] | | | | | [place] [address] | | + + + + + | Deidra Weldon | ECON | [address] | | | | | [place] | | | | | [address] | | + + + + + Care Team Providers + +------+ + | Care Wafer Fabrication Operator Name | Role | Phone | [...] Shun | | | | | [address] [facility] [address] [facility] | [facility] | | | | | [place], [place] | [place] [address] | | | | | [address] | [phone] | | | | | | | [...] Denise | | | | | | [place], [place] | | | | | | [address] | | | | | | [phone] | | | | | | | | +--------+ + + + + documented as of this encounter Visit Diagnoses Not on filedocumented in this encounter"
--- OUTSIDE RECORDS SUMMARY | ~2019-01-06 | XMS | Encounter Summary ---
Demographics + + + | Address | [address] | | | [place] [address] | + + + | Home Phone [...] Author | [facility] | | | and Josephana | + + + | Organization | [facility] [...] Team Providers + +------+ + | Care Bilingual Call Center Representative Name | Role | Phone | [...] | | [address] | [place] | | | | | [place], [place] | [place], [place] | | | | | [address] | [address] | | | | | [phone] | | | +--------+--------+ + + + [...] | | | | | [place] [address] | | | | | | [phone] | | | | | | | | +--------+---------+ + + + documented as of this encounter Visit Diagnoses Not on filedocumented in this encounter"
--- OUTSIDE RECORDS SUMMARY | ~2019-01-06 | XMS | Encounter Summary ---
Demographics + + + | Address | [address] | | | [place] [address] | + + + | Home Phone [...] | | | | | [place] [address] | | + + + + + | Thania Mallory | ECON | [address] | | | | | [place] [address] | | + + + + + | Deidra Weldon | ECON | [address] | | | | | [place] | | | | | [address] | | + + + + + Care Team Providers + +------+ + | Care Senior Client Advisor Name | Role | Phone | [...] Hoffmann | | | | | ANNALISA [facility] | [facility] | | | | | Rd [place], [place] | [place], [place] | | | | | [address] | [address] | | | | | [phone] | | | +--------+ + + + [...] Denise | | | | | | [place], [place] | | | | | | [address] | | | | | | [phone] | | | | | | | | +--------+ + + + + documented as of this encounter Visit Diagnoses Not on filedocumented in this encounter"
--- OUTSIDE RECORDS SUMMARY | ~2019-01-06 | XMS | Encounter Summary ---
Demographics + + + | Address | [address] | | | [place] [address] | + + + | Home Phone [...] | | | | | [place] [address] | | + + + + + | Thania Mallory | ECON | [address] | | | | | [place] [address] | | + + + + + | Deidra Weldon | ECON | [address] | | | | | [place] | | | | | [address] | | + + + + + Care Team Providers + +------+ + | Care Bag Loader Name | Role | Phone | [...] | | | | Dea Jane | [place], [place] | | | | | [place], [place] | [address] | | | | | [address] | | | | | | [phone] | | | +--------+ + + + [...] Denise | | | | | | [place] | | | | | | [address] | | | | | | [phone] | | | | | | | | +--------+ + + + + documented as of this encounter Visit Diagnoses Not on filedocumented in this encounter"
--- OUTSIDE RECORDS SUMMARY | ~2019-01-06 | XMS | Encounter Summary ---
Demographics + + + | Address | [address] | | | [place] [address] | + + + | Home Phone [...] | | | | | [place] [address] | | + + + + + | Deidra Weldon | ECON | [address] | | | | | [place] | | | | | [address] | | + + + + + Care Team Providers + +------+ + | Care Neonatal Nurse Name | Role | Phone | [...] Mailcode: | | | | | | [address] | [address] | | | | | | [address] | [address] | | | | | | [place], | [place], [place] | | | | | | [place] | [address] | | | | | | [address] | Phone: | | | | | | Phone: | [phone] | | | | | | [phone] | | | | | | | Fax: | | | | | | | [phone] | | +--------+--------+ + + + + Encounter Details +--------+---------+ + + + | Date | Type | Department | Care Team | Description | +--------+---------+ + + + | 08/17/ | Office | Specialty Clinics | Sudhakar Joy | Anemia of chronic | | 2016 | Visit | at [facility] [address] MD [address] | kidney failure, | | | | [address] | [address] | stage 5 (HCC) | | | | Mailcode: DCH7 | [place], [place] | (Primary Dx); HSP | | | | [address]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 She has moved into a new [facility]. She has collected enough money to [...] [address] Mail code [facility] [place], [place] [address] documented in this encounter Plan of Treatment +--------+ + + + + | Date | Type | Specialty | Care Team | Description | +--------+ + + + + | 05/04/ | Hospital | Adult Acute Care | El Starr MD | | | 2022 | Encounter | | [address] | | | | | | [place], [place] | | | | | | [address] | | | | | | [phone] | | | | | | | [...]
--- OUTSIDE RECORDS SUMMARY | ~2019-01-06 | XMS | Encounter Summary ---
Demographics + + + | Address | [address] | | | [place] [address] | + + + | Home Phone [...] | | | | | [place] [address] | | + + + + + | Thania Mallory | ECON | [address] | | | | | [place] [address] | | + + + + + | Deidra Weldon | ECON | [address] | | | | | [place] | | | | | [address] | | + + + + + Care Team Providers + +------+ + | Care Diesel Dinkey Engineer Name | Role | Phone | + +------+ + | Jonathan Alonso MD | PCP | | + +------+ + Encounter Details +--------+ + + + + | Date | Type | Department | Care Team | Description | +--------+ + + + + | 01/20/ | Hospital | Radiology at [facility] | | | | 2014 | Encounter | [address] | | | | | | Caro Chan Mailcode: | | | | | | [address] | | | | | | [place], [place] | | | | | | [address] | | | | | | [phone] | | | +--------+ + + + [...] Denise | | | | | | [place], [place] | | | | | | [address] | | | | | | [phone] | | | | | | | [...] | | + +---------+ + + | [facility] DEPARTMENT OF | | | [...]
--- OUTSIDE RECORDS SUMMARY | ~2019-01-06 | XMS | Encounter Summary ---
Demographics + + + | Address | [address] | | | [place] [address] | + + + | Home Phone [...] | | | | | [place] [address] | | + + + + + | Thania Mallory | ECON | [address] | | | | | [place] [address] | | + + + + + | Deidra Weldon | ECON | [address] | | | | | [place] | | | | | [address] | | + + + + + Care Team Providers + +------+ + | Care Sleeping Car Service Attendant Name | Role | Phone | + +------+ + | Shahid Camargo MD | PCP | | + +------+ + Encounter Details +--------+ + + + + | Date | Type | Department | Care Team | Description | +--------+ + + + + | 12/19/ | Document-Sc | UNKNOWN DEPARTMENT | Unknown . | | | 2012 | anned | [address] [facility] | | | | | | [facility] | | | | | | [place], [place] | | | | | | [address] | | | +--------+ + + + [...] Denise | | | | | | [place], [place] | | | | | | [address] | | | | | | [phone] | | | | | | | | +--------+ + + + + documented as of this encounter Visit Diagnoses Not on filedocumented in this encounter"
--- OUTSIDE RECORDS SUMMARY | ~2019-01-06 | XMS | Encounter Summary ---
Demographics + + + | Address | [address] | | | [place] [address] | + + + | Home Phone [...] | | | | | [place] [address] | | + + + + + | Thania Mallory | ECON | [address] | | | | | [place] [address] | | + + + + + | Deidra Weldon | ECON | [address] | | | | | [place] | | | | | [address] | | + + + + + Care Team Providers + +------+ + | Care Security Guards Dispatcher Name | Role | Phone | [...] | | | | | nlein | [place], [place] | Mailcode: | | | | | purpura) | [address] | [facility] | | | | | nephritis | Phone: | [facility] | | | | | (HCC) | [phone] | [place], [place] | | | | | Hemodialysis | Fax: | [address] | | | | | status | [phone] | Phone: | | | | | (HCC) | | [phone] | | | | | Chronic | | Fax: | | | | | kidney | | [phone] | | | | | disease, | [...] | | 2014 | Encounter | at [facility] [address] | | | | | | [address] | | | | | | Mailcode: DCH8S | | | | | | [address] | | | | | | [place], [place] | | | | | | [address] | | | | | | [phone] | | | +--------+ + + + [...] Denise | | | | | | [place], [place] | | | | | | [address] | | | | | | [phone] | | | | | | | [...] | e | 1:18 PM | MEDICARE [address] [facility] | procedure are in the | [...] 2:35 PM PST Echocardiography Laboratory | | [address] | | [place] [address] | | ; | | [id number] | | | | Transthoracic Echocardiogram Report | | | | | | NAME: DARA WELDON Study Date: 01/20/2015 1:18:29 PM | | Order #: [id number] ACC #: [id number] | | | | | | : [...] on 01/20/2015 at 2:35:17 PM | | Weaving Teacher: YARITZA KLINE [facility] | | | | | | cc: | | | | | | Modes utilized | | TTE 39461; Spectral Doppler 94590; Color flow Doppler 73892; | | | | | | | | Final | + + + + + + + | Performing | Address | City/State/Zipcode | Phone Number | | Organization | | | | + + + + + | [facility] | [address] | [place], [place] | | | CARDIOLOGY | [address] | [address] | | + + + + + [...]
--- OUTSIDE RECORDS SUMMARY | ~2019-01-06 | XMS | Encounter Summary ---
Demographics + + + | Address | [address] | | | [place] [address] | + + + | Home Phone [...] | | | | | [place] [address] | | + + + + + | Thania Mallory | ECON | [address] | | | | | [place] [address] | | + + + + + | Deidra Weldon | ECON | [address] | | | | | [place] | | | | | [address] | | + + + + + Care Team Providers + +------+ + | Care Sr. Director Name | Role | Phone | [...] Mailcode: | | | | | | [address] | [address] | | | | | | [address] | [address] | | | | | | [place], | [place], [place] | | | | | | [place] | [address] | | | | | | [address] | Phone: | | | | | | Phone: | [phone] | | | | | | [phone] | | | | | | | Fax: | | | | | | | [phone] | | +--------+--------+ + + + + Encounter Details +--------+---------+ + + + | Date | Type | Department | Care Team | Description | +--------+---------+ + + + | 08/17/ | Office | Specialty Clinics | Sudhakar Joy | Anemia of chronic | | 2016 | Visit | at [facility] [address] Cast[address] MD [address] | kidney failure, | | | | [address] | [address] | stage 5 (HCC) | | | | Mailcode: DCH7 | [place], [place] | (Primary Dx); HSP | | | | [address] | [address] | (Jada-Domonique | | | | [place], [place] | [phone] | purpura) nephritis | | | | [address] | | | | | | [phone] | | | +--------+---------+ + + + [...] She has moved into a new [facility]. She has collected enough money to [...] [address] Mail code [facility] [place], [place] [address] documented in this encounter Plan of Treatment [...] [place] | | | | | | [address] | | | | | | [phone] | | | | | | | [...]
--- OUTSIDE RECORDS SUMMARY | ~2019-01-06 | XMS | Encounter Summary ---
Demographics + + + | Address | [address] | | | [place] [address] | + + + | Home Phone [...] | | | | | [place] [address] | | + + + + + | Thania Mallory | ECON | [address] | | | | | [place] [address] | | + + + + + | Deidra Weldon | ECON | [address] | | | | | [place] | | | | | [address] | | + + + + + Care Team Providers + +------+ + | Care Special Procedures Tech Name | Role | Phone | [...] [address] | | | | | ([facility]) | Caro Chan | [place], | | | | | Allergic | [place], [place] | [place] | | | | | purpura | [address] | [address] | | | | | ([facility]) | Phone: | Phone: | | | | | | [phone] | [phone] | | | | | | Fax: | Fax: | | | | | | [phone] | [phone] | +--------+--------+ + + + + Encounter Details +--------+---------+ + + + | Date | Type | Department | Care Team | Description | +--------+---------+ + + + | 12/19/ | Office | Kidney Transplant | Clinic, [place] [address] | Patient on | | 2012 | Visit | at [facility] | [facility] | peritoneal dialysis | | | | Pavilion [address] [place], [place] | (HCC) (Primary Dx); | | | | [address] | [address] | Unspecified | | | | Mailcode: L590 | | essential | | | | [facility] | | hypertension; HSP | | | | [place], [place] | | ([place] | | | | [address]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; | | | | [phone] | | Obesity (BMI | | | [...] on file Social History Narrative Lives in [place], [place] with father and step-mother; 2 dogs; [...] Transplant Selection Confer ence. El Starr MD bakery machine mechanic, Division of Abdominal Organ Transplantation Professor of Urology CC: Sudhakar Joy MD [address] [place] [address] documented in this encoun ter Plan of Treatment +--------+ + + + + | Date | Type | Specialty | Care Team | Description | +--------+ + + + + | 05/04/ | Hospital | Adult Acute Care | El Starr MD | | | 2022 | Encounter | | [address] | | | | | | [place], [place] | | | | | | [address] | | | | | | [phone] | | | | | | | [...]
--- OUTSIDE RECORDS SUMMARY | ~2019-01-06 | XMS | Encounter Summary ---
Demographics + + + | Address | [address] | | | [place] [address] | + + + | Home Phone [...] | | | | | [place] [address] | | + + + + + | Thania Mallory | ECON | [address] | | | | | [place] [address] | | + + + + + | Deidra Weldon | ECON | [address] | | | | | [place] | | | | | [address] | | + + + + + Care Team Providers + +------+ + | Care Burner Technician Name | Role | Phone | [...] | ABO) | | | | ANNALISA [facility] | [facility] | | | | | Rd [place], [place] | [place], [place] | | | | | [address] | [address] | | | | | [phone] | | | +--------+ + + + [...] Denise | | | | | | [place], [place] | | | | | | [address] | | | | | | [phone] | | | | | | | [...] + + | [facility] | [address] | [place] | [phone] | | [place] | | | | + + + + + documented in this encounter Visit Diagnoses Not on filedocumented in this encounter"
--- OUTSIDE RECORDS SUMMARY | ~2019-01-06 | XMS | Encounter Summary ---
Demographics + + + | Address | [address] | | | [place] [address] | + + + | Home Phone [...] | | | | | [place] [address] | | + + + + + | Thania Mallory | ECON | [address] | | | | | [place] [address] | | + + + + + | Deidra Weldon | ECON | [address] | | | | | [place] | | | | | [address] | | + + + + + Care Team Providers + +------+ + | Care Acoustic Engineer Name | Role | Phone | [...] | Update | | | | ANNALISA [facility] | [facility] | | | | | Rd [place], [place] | [place], [place] | | | | | [address] | [address] | | | | | [phone] | | | +--------+ + + + [...] Denise | | | | | | [place] | | | | | | [address] | | | | | | [phone] | | | | | | | | +--------+ + + + + documented as of this encounter Visit Diagnoses Not on filedocumented in this encounter"
--- OUTSIDE RECORDS SUMMARY | ~2019-01-06 | XMS | Encounter Summary ---
Demographics + + + | Address | [address] | | | [place] [address] | + + + | Home Phone [...] | | | | | [place] [address] | | + + + + + | Thania Mallory | ECON | [address] | | | | | [place] [address] | | + + + + + | Deidra Weldon | ECON | [address] | | | | | [place] | | | | | [address] | | + + + + + Care Team Providers + +------+ + | Care Treatment Plant Mechanic Name | Role | Phone [...] | Family sheet) | | | | [address] | [address] | | | | | Car[place] Mailcode: | [place], [place] | | | | | [address] Physician's | [address] | | | | | [address] | [phone] | | | | | [place], [place] | | | | | | [address] | | | | | | [phone] | | | +--------+ + + + [...] Denise | | | | | | [place] | | | | | | [address] | | | | | | [phone] | | | | | | | | +--------+ + + + + documented as of this encounter Visit Diagnoses Not on filedocumented in this encounter"
--- OUTSIDE RECORDS SUMMARY | ~2019-01-06 | XMS | Encounter Summary ---
Demographics + + + | Address | [address] | | | [place] [address] | + + + | Home Phone [...] | | | | | [place] [address] | | + + + + + | Thania Mallory | ECON | [address] | | | | | [place] [address] | | + + + + + | Deidra Weldon | ECON | [address] | | | | | [place] | | | | | [address] | | + + + + + Care Team Providers + +------+ + | Care Varnish Finisher Name | Role | Phone | [...] check-in on | | | | Rd [place], [place] | [place], [place] | psychosocial goals | | | | [address] | [address] | related to listing | | | | [phone] | | status) | +--------+ + + [...] Denise | | | | | | [place], [place] | | | | | | [address] | | | | | | [phone] | | | | | | | | +--------+ + + + + documented as of this encounter Visit Diagnoses Not on filedocumented in this encounter"
--- OUTSIDE RECORDS SUMMARY | ~2019-01-06 | XMS | Encounter Summary ---
Demographics + + + | Address | [address] | | | [place] [address] | + + + | Home Phone [...] | | | | | [place] [address] | | + + + + + | Thania Mallory | ECON | [address] | | | | | [place] [address] | | + + + + + | Deidra Weldon | ECON | [address] | | | | | [place] | | | | | [address] | | + + + + + Care Team Providers + +------+ + | Care Presser Cotton Ginning Name | Role | Phone | + [...] | | | | | [place], | | | | | | [place] [address] | | | +--------+ + + + [...] Denise | | | | | | [place], [place] | | | | | | [address] | | | | | | [phone] | | | | | | | [...] DANILO - | [address], | [place] [address] | | | IMMUNOGENETICS/TRANS | [address] | | | | PLANT LAB[facility] | | | | + + + + + documented in this encounter Visit Diagnoses Not on filedocumented in this encounter"
--- OUTSIDE RECORDS SUMMARY | ~2019-01-06 | XMS | Encounter Summary ---
Demographics + + + | Address | [address] | | | [place] [address] | + + + | Home Phone [...] | | | | | [place] [address] | | + + + + + | Thania Mallory | ECON | [address] | | | | | [place] [address] | | + + + + + | Deidra Weldon | ECON | [address] | | | | | [place] | | | | | [address] | | + + + + + Care Team Providers + +------+ + | Care Person Investigator Name | Role | Phone | [...] 06/02/ | Documentati | Transplant | Kelsi Martinze, | Follow-up Plan | | 2017 | on | Coordinators 3181 | RN [address] | | | | | ANNALISA [facility] | [facility] | | | | | Rd [place], [place] | [place], [place] | | | | | [address] | [address] | | | | | [phone] | | | +--------+ + + + [...] Denise | | | | | | [place] | | | | | | [address] | | | | | | [phone] | | | | | | | | +--------+ + + + + documented as of this encounter Visit Diagnoses Not on filedocumented in this encounter"
--- OUTSIDE RECORDS SUMMARY | ~2019-01-06 | XMS | Encounter Summary ---
Demographics + + + | Address | [address] | | | [place] [address] | + + + | Home Phone [...] | | | | | [place] [address] | | + + + + + | Thania Mallory | ECON | [address] | | | | | [place] [address] | | + + + + + | Deidra Weldon | ECON | [address] | | | | | [place] | | | | | [address] | | + + + + + Care Team Providers + +------+ + | Care Electric Shipyard Operator Name | Role | Phone | [...] on pt's | | | | Rd [place], [place] | [place], [place] | support plan & | | | | [address] | [address] | social changes) | | | | [phone] | | | +--------+ + + + [...] Denise | | | | | | [place], [place] | | | | | | [address] | | | | | | [phone] | | | | | | | | +--------+ + + + + documented as of this encounter Visit Diagnoses Not on filedocumented in this encounter"
--- OUTSIDE RECORDS SUMMARY | ~2019-01-06 | XMS | Encounter Summary ---
Demographics + + + | Address | [address] | | | [place] [address] | + + + | Home Phone [...] | | | | | [place] [address] | | + + + + + | Thania Mallory | ECON | [address] | | | | | [place] [address] | | + + + + + | Deidra Weldon | ECON | [address] | | | | | [place] | | | | | [address] | | + + + + + Care Team Providers + +------+ + | Care Life Skills Coordinator Volunteer Name | Role | Phone | + [...] | Requested | | | | [facility] | [facility] | | | | | Rd [place], [place] | [place], [place] | | | | | [address] | [address] | | | | | [phone] | | | +--------+ + + + [...] [place] | | | | | | [address] | | | | | | [phone] | | | | | | | | +--------+ + + + + documented as of this encounter Visit Diagnoses Not on filedocumented in this encounter"
--- OUTSIDE RECORDS SUMMARY | ~2019-01-06 | XMS | Encounter Summary ---
Demographics + + + | Address | [address] | | | [place] [address] | + + + | Home Phone [...] | | | | | [place] [address] | | + + + + + | Thania Mallory | ECON | [address] | | | | | [place] [address] | | + + + + + | Deidra Weldon | ECON | [address] | | | | | [place] | | | | | [address] | | + + + + + Care Team Providers + +------+ + | Care Spot Washer Name | Role | Phone | [...] (Primary Dx) | | | | [facility] | | | | | | [address] | [address] | | | | | [place] Mailcode: | [phone] | | | | | [address] [place] | | | | | | | | | | | | [address] | | | | | | [phone] | | | +--------+ + + + [...] Denise | | | | | | [place], [place] | | | | | | [address] | | | | | | [phone] | | | | | | | [...] | e | 1:18 PM | MEDICARE [address] | procedure are in the | | | | PST | (Henoch-Schonlein | results section. | | |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 | | | | | | Hemodialysis status | | | | | | ([facility]) Chronic | | | | | | kidney disease, | | | | | | stage V ([facility]) | | + +--------+ + + + documented in this encounter Visit Diagnoses + + | Diagnosis | + + | End-stage renal disease (HCC) - Primary End stage renal disease | + + documented in this encounter"
--- OUTSIDE RECORDS SUMMARY | ~2019-01-06 | XMS | Encounter Summary ---
Demographics + + + | Address | [address] | | | [place] [address] | + + + | Home Phone [...] | | | | | [place] [address] | | + + + + + | Thania Mallory | ECON | [address] | | | | | [place] [address] | | + + + + + | Deidra Weldon | ECON | [address] | | | | | [place] | | | | | [address] | | + + + + + Care Team Providers + +------+ + | Care Vp Genetic Name | Role | Phone | + [...] Hoffmann | | | | | ANNALISA [facility] | [facility] | | | | | Rd [place], [place] | [place], [place] | | | | | [address] | [address] | | | | | [phone] | | | +--------+ + + + [...] Denise | | | | | | [place], [place] | | | | | | [address] | | | | | | [phone] | | | | | | | | +--------+ + + + + documented as of this encounter Visit Diagnoses Not on filedocumented in this encounter"
--- OUTSIDE RECORDS SUMMARY | ~2019-01-06 | XMS | Encounter Summary ---
Demographics + + + | Address | [address] | | | [place] [address] | + + + | Home Phone [...] | | | | | [place] [address] | | + + + + + | Thania Mallory | ECON | [address] | | | | | [place] [address] | | + + + + + | Deidra Weldon | ECON | [address] | | | | | [place] | | | | | [address] | | + + + + + Care Team Providers + +------+ + | Care Automatic Pattern Edger Name | Role | Phone | [...] [place] | | | | | [facility] | [place], [place] | | | | | [address] [place] | [address] | | | | | [facility] Mailcode: | | | | | | [address] | | | | | | [place], [place] | | | | | | [address] | | | | | | [phone] | | | +--------+ + + + [...] Denise | | | | | | [place], [place] | | | | | | [address] | | | | | | [phone] | | | | | | | | +--------+ + + + + documented as of this encounter Visit Diagnoses Not on filedocumented in this encounter"
--- OUTSIDE RECORDS SUMMARY | ~2019-01-06 | XMS | Encounter Summary ---
Demographics + + + | Address | [address] | | | [place] [address] | + + + | Home Phone [...] | | | | | [place] [address] | | + + + + + | Thania Mallroy | ECON | [address] | | | | | [place] [address] | | + + + + + | Deidra Weldon | ECON | [address] | | | | | [place] | | | | | [address] | | + + + + + Care Team Providers + +------+ + | Care Sports Medicine Trainer Name | Role | Phone | [...] issues with | | | | Rd [place], [place] | [place], [place] | pt's dad) | | | | [address] | [address] | | | | | [phone] | | | +--------+ + + + [...] [place] | | | | | | [address] | | | | | | [phone] | | | | | | | | +--------+ + + + + documented as of this encounter Visit Diagnoses Not on filedocumented in this encounter"
--- OUTSIDE RECORDS SUMMARY | ~2019-01-06 | XMS | Encounter Summary ---
Demographics + + + | Address | [address] | | | [place] [address] | + + + | Home Phone [...] | | | | | [place] [address] | | + + + + + | Thania Mallory | ECON | [address] | | | | | [place] [address] | | + + + + + | Deidra Weldon | ECON | [address] | | | | | [place] | | | | | [address] | | + + + + + Care Team Providers + +------+ + | Care Gas Torch Solderer Name | Role | Phone | + [...] (Immunizations) | | | | ANNALISA [address] [facility] | [facility] | | | | | Rd [place], [place] | [place], [place] | | | | | [address] | [address] | | | | | [phone] | | | +--------+ + + + [...] | | | | | | [place], [place] | | | | | | [address] | | | | | | [phone] | | | | | | | | +--------+ + + + + documented as of this encounter Visit Diagnoses Not on filedocumented in this encounter"
--- OUTSIDE RECORDS SUMMARY | ~2019-01-06 | XMS | Encounter Summary ---
Demographics + + + | Address | [address] | | | [place] [address] | + + + | Home Phone [...] | Author | [facility] | | | and Josephana | + + + | Organization | [facility] | | | and [...] Team Providers + +------+ + | Care Burial Vault Setter Name | Role | Phone | + +------+ + | Jonathan Alonso MD | PCP | | + +------+ + Encounter Details +--------+ + + + + | Date | Type | Department | Care Team | Description | +--------+ + + + + | 10/08/ | Orders Only | [facility] | Provider, | Systolic congestive | | 2019 | | SYSTEM GENERIC OP | MD [address] | heart failure (HCC) | | | | CONVERSION [address] | [place]. | | | | | [address] [place], [place] | [place] [address] | | | | | [address] | | | | | | [phone] | | | +--------+ + + + [...] DAVIDSON | | | | | | [place] [address] | | | | | | [phone] | | | | | | | [...]
--- OUTSIDE RECORDS SUMMARY | ~2019-01-06 | XMS | Encounter Summary ---
Demographics + + + | Address | [address] | | | [place] [address] | + + + | Home Phone [...] | | | | | [place] [address] | | + + + + + | Thania Mallory | ECON | [address] | | | | | [place] [address] | | + + + + + | Deidra Weldon | ECON | [address] | | | | | [place] | | | | | [address] | | + + + + + Care Team Providers + +------+ + | Care Biofuels Manager Name | Role | Phone | [...] | | | | [facility] | [place], [place] | | | | | [address] | [address] | | | | | Caro [place] Mailcode: | [phone] | | | | | [address] | | | | | | [place], [place] | | | | | | [address] | | | | | | [phone] | | | +--------+ + + + [...] Denise | | | | | | [place], [place] | | | | | | [address] | | | | | | [phone] | | | | | | | | +--------+ + + + + documented as of this encounter Visit Diagnoses Not on filedocumented in this encounter"
--- OUTSIDE RECORDS SUMMARY | ~2019-01-06 | XMS | Encounter Summary ---
Demographics + + + | Address | [address] | | | [place] [address] | + + + | Home Phone [...] | | | | | [place] [address] | | + + + + + | Thania Mallory | ECON | [address] | | | | | [place] [address] | | + + + + + | Deidra Weldon | ECON | [address] | | | | | [place] | | | | | [address] | | + + + + + Care Team Providers + +------+ + | Care Mutual Fund Accountant Name | Role | Phone | [...] | | | | Dea Jane | [place], [place] | | | | | [place], [place] | [address] | | | | | [address] | | | | | | [phone] | | | +--------+ + + + [...] | | | | | | [place] | | | | | | [address] | | | | | | [phone] | | | | | | | | +--------+ + + + + documented as of this encounter Visit Diagnoses Not on filedocumented in this encounter"
--- OUTSIDE RECORDS SUMMARY | ~2019-01-06 | XMS | Encounter Summary ---
Demographics + + + | Address | [address] | | | [place] [address] | + + + | Home Phone [...] | | | | | [place] [address] | | + + + + + | Thania Mallory | ECON | [address] | | | | | [place] [address] | | + + + + + | Deidra Weldon | ECON | [address] | | | | | [place] | | | | | [address] | | + + + + + Care Team Providers + +------+ + | Care Body Press Operator Name | Role | Phone [...] Hoffmann | | | | | ANNALISA [facility] | [facility] | | | | | Rd [place], [place] | [place], [place] | | | | | [address] | [address] | | | | | [phone] | | | +--------+ + + + [...] | | | | | | [place] | | | | | | [address] | | | | | | [phone] | | | | | | | | +--------+ + + + + documented as of this encounter Visit Diagnoses Not on filedocumented in this encounter"
--- OUTSIDE RECORDS SUMMARY | ~2019-01-06 | XMS | Encounter Summary ---
Demographics + + + | Address | [address] | | | [place] [address] | + + + | Home Phone [...] | | | | | [place] [address] | | + + + + + | Thania Mallory | ECON | [address] | | | | | [place] [address] | | + + + + + | Deidra Weldon | ECON | [address] | | | | | [place] | | | | | [address] | | + + + + + Care Team Providers + +------+ + | Care Sporting Goods Sales Manager Name | Role | Phone [...] | Nephrology at | MD Emanuel [address] [facility] | Requested (UDS) | | | | [place] | [address] | | | | | [facility] | [place], [place] | | | | | [address] | [address] | | | | | Caro Chan Mailcode: | [phone] | | | | | [address] | | | | | | [place], [place] | | | | | | [address] | | | | | | [phone] | | | +--------+ + + + [...] Denise | | | | | | [place] | | | | | | [address] | | | | | | [phone] | | | | | | | | +--------+ + + + + documented as of this encounter Visit Diagnoses Not on filedocumented in this encounter"
--- OUTSIDE RECORDS SUMMARY | ~2019-01-06 | XMS | Encounter Summary ---
Demographics + + + | Address | [address] | | | [place] [address] | + + + | Home Phone [...] | | | | | [place] [address] | | + + + + + | Thania Mallory | ECON | [address] | | | | | [place] [address] | | + + + + + | Deidra Weldon | ECON | [address] | | | | | [place] | | | | | [address] | | + + + + + Care Team Providers + +------+ + | Care Fur Puller Name | Role | Phone | [...] | | Nephrology at | MD Emanuel [address] | | | | | [place] | [address] | | | | | [facility] | [place], [place] | | | | | [address] | [address] | | | | | Caro Chan Mailcode: | [phone] | | | | | [address] | | | | | | [place], [place] | | | | | | [address] | | | | | | [phone] | | | +--------+ + + + [...] Denise | | | | | | [place], [place] | | | | | | [address] | | | | | | [phone] | | | | | | | [...] | [address] | [place] [address] | [phone] | | HOSPITAL | | | | [...] [address] | [place] [address] | [phone] | | HOSPITAL | | | | [...] [address] | [place] [address] | [phone] | | HOSPITAL | | | | [...] | [address] | [place] [address] | [phone] | | HOSPITAL | | | | [...] | [address] | [place] [address] | [phone] | | HOSPITAL | | | | [...] | [address] | [place] [address] | [phone] | | HOSPITAL | | | | + + + + + documented in this encounter Visit Diagnoses Not on filedocumented in this encounter"
--- OUTSIDE RECORDS SUMMARY | ~2019-01-06 | XMS | Encounter Summary ---
Demographics + + + | Address | [address] | | | [place] [address] | + + + | Home Phone [...] Author | [facility] | | | and Josephana | + + + | Organization | [facility] | | | [...] Providers + +------+ + | Care Extrusion Technician Name | Role | Phone | [...] + + | 12/19/ | Telephone | [facility] | George Torres RN | Congestive Heart | | 2019 | | [address] | | Failure (Reviewed | | | | [place], [place] | | for CHF Quality | | | | [address] | | Measures) | | | | [phone] | | | +--------+ + + + [...] DAVIDSON | | | | | | [place] [address] | | | | | | [phone] | | | | | | | | +--------+---------+ + + + documented as of this encounter Visit Diagnoses Not on filedocumented in this encounter"
--- OUTSIDE RECORDS SUMMARY | ~2019-01-06 | XMS | Encounter Summary ---
Demographics + + + | Address | [address] | | | [place] [address] | + + + | Home Phone [...] | | | | | [place] [address] | | + + + + + | Thania Mallory | ECON | [address] | | | | | [place] [address] | | + + + + + | Deidra Weldon | ECON | [address] | | | | | [place] | | | | | [address] | | + + + + + Care Team Providers + +------+ + | Care Foreign Diplomat Name | Role | Phone | + [...] | | Nephrology at | MD Emanuel [address] | | | | | [place] | [address] | | | | | [facility] | [place], [place] | | | | | [address] | [address] | | | | | Caro Chan Mailcode: | [phone] | | | | | [address] | | | | | | [place], [place] | | | | | | [address] | | | | | | [phone] | | | +--------+ + + + [...] [place] | | | | | | [address] | | | | | | [phone] | | | | | | | [...] | [address] | [place] [address] | [phone] | | HOSPITAL | | | | [...] [address] | [place] [address] | [phone] | | HOSPITAL | | | | [...] [address] | [place] [address] | [phone] | | HOSPITAL | | | | [...] | [address] | [place] [address] | [phone] | | HOSPITAL | | | | [...] | [address] | [place] [address] | [phone] | | HOSPITAL | | | | [...] | [address] | [place] [address] | [phone] | | HOSPITAL | | | | + + + + + documented in this encounter Visit Diagnoses Not on filedocumented in this encounter"
--- OUTSIDE RECORDS SUMMARY | ~2019-01-06 | XMS | Encounter Summary ---
Demographics + + + | Address | [address] | | | [place] [address] | + + + | Home Phone [...] | | | | | [place] [address] | | + + + + + | Thania Mallory | ECON | [address] | | | | | [place] [address] | | + + + + + | Deidra Weldon | ECON | [address] | | | | | [place] | | | | | [address] | | + + + + + Care Team Providers + +------+ + | Care Paddle Dyeing Machine Operator Name | Role | Phone [...] [address]181 | RN [address] [facility] | | | | | ANNALISA [facility] | [facility] | | | | | Rd [place], [place] | [place], [place] | | | | | [address] | [address] | | | | | [phone] | | | +--------+ + + + [...] Denise | | | | | | [place], [place] | | | | | | [address] | | | | | | [phone] | | | | | | | | +--------+ + + + + documented as of this encounter Visit Diagnoses Not on filedocumented in this encounter"
--- OUTSIDE RECORDS SUMMARY | ~2019-01-06 | XMS | Encounter Summary ---
Demographics + + + | Address | [address] | | | [place] [address] | + + + | Home Phone [...] | | | | | [place] [address] | | + + + + + | Thania Mallory | ECON | [address] | | | | | [place] [address] | | + + + + + | Deidra Weldon | ECON | [address] | | | | | [place] | | | | | [address] | | + + + + + Care Team Providers + +------+ + | Care Customer Business Manager Name | Role | Phone | [...] | 02/21/ | Telephone | Transplant | Kelis Martinez, | Other (Transplant | | 2012 | | Coordinators [address] | RN [address] | Committee | | | | ANNALISA [facility] | [facility] | recommendations) | | | | Rd [place], [place] | [place], [place] | | | | | [address] | [address] | | | | | [phone] | | | +--------+ + + + [...] Denise | | | | | | [place] | | | | | | [address] | | | | | | [phone] | | | | | | | | +--------+ + + + + documented as of this encounter Visit Diagnoses Not on filedocumented in this encounter"
--- OUTSIDE RECORDS SUMMARY | ~2019-01-06 | XMS | Encounter Summary ---
Demographics + + + | Address | [address] | | | [place] [address] | + + + | Home Phone [...] | | | | | [place] [address] | | + + + + + | Thania Mallory | ECON | [address] | | | | | [place] [address] | | + + + + + | Deidra Weldon | ECON | [address] | | | | | [place] | | | | | [address] | | + + + + + Care Team Providers + +------+ + | Care Laborer Pipeline Name | Role | Phone | + [...] | | | Caro Chan Mailcode: | [facility] [place] | | | | | [address] Physician's | [address] | | | | | [address] | [phone] | | | | | [place], [place] | | | | | | [address] | | | | | | [phone] | | | +--------+ + + + [...] Denise | | | | | | [place], [place] | | | | | | [address] | | | | | | [phone] | | | | | | | | +--------+ + + + + documented as of this encounter Visit Diagnoses Not on filedocumented in this encounter"
--- OUTSIDE RECORDS SUMMARY | ~2019-01-06 | XMS | Encounter Summary ---
Demographics + + + | Address | [address] | | | [place] [address] | + + + | Home Phone [...] | | | | | [place] [address] | | + + + + + | Thania Mallory | ECON | [address] | | | | | [place] [address] | | + + + + + | Deidra Weldon | ECON | [address] | | | | | [place] | | | | | [address] | | + + + + + Care Team Providers + +------+ + | Care Metal Polisher Name | Role | Phone | [...] Rd | | | | | | [place], [place] | | | | | | [address] | | | +--------+ + + + [...] Denise | | | | | | [place], [place] | | | | | | [address] | | | | | | [phone] | | | | | | | | +--------+ + + + + documented as of this encounter Visit Diagnoses [facility]"
--- OUTSIDE RECORDS SUMMARY | ~2019-01-06 | XMS | Encounter Summary ---
Demographics + + + | Address | [address] | | | [place] [address] | + + + | Home Phone [...] | | | | | [place] [address] | | + + + + + | Thania Mallory | ECON | [address] | | | | | [place] [address] | | + + + + + | Deidra Weldon | ECON | [address] | | | | | [place] | | | | | [address] | | + + + + + Care Team Providers + +------+ + | Care Integrity Manager Name | Role | Phone | [...] | | | | | Caro Chan [place], | | | | | | [place] [address] | | | +--------+ + + + [...] Denise | | | | | | [place], [place] | | | | | | [address] | | | | | | [phone] | | | | | | | [...] [facility] - | [address], | [place] [address] | | | IMMUNOGENETICS/TRANS | [address] | | | | PLANT LABORATORY | | | | + + + + + documented in this encounter Visit Diagnoses Not on filedocumented in this encounter"
--- OUTSIDE RECORDS SUMMARY | ~2019-01-06 | XMS | Encounter Summary ---
Demographics + + + | Address | [address] | | | [place] [address] | + + + | Home Phone [...] | | | | | [place] [address] | | + + + + + | Thania Mallory | ECON | [address] | | | | | [place] [address] | | + + + + + | Deidra Weldon | ECON | [address] | | | | | [place] | | | | | [address] | | + + + + + Care Team Providers + +------+ + | Care Painting Contractor Name | Role | Phone | [...] | | | | | Caro Chan [place], | | | | | | [place] [address] | | | +--------+ + + + [...] Denise | | | | | | [place], [place] | | | | | | [address] | | | | | | [phone] | | | | | | | [...] [facility] - | [address] | [place] [address] | | | IMMUNOGENETICS/TRANS | [address] [...] [facility] - | [address], | [place] [address] | | | IMMUNOGENETICS/TRANS | [address] [...] [facility] - | [address] | [place] [address] | | | IMMUNOGENETICS/TRANS | [address] | | | | PLANT LABORATORY | | | | + + + + + documented in this encounter Visit Diagnoses + + | Diagnosis | + + | End stage renal disease (HCC) End stage renal disease | + + documented in this encounter"
--- OUTSIDE RECORDS SUMMARY | ~2019-01-06 | XMS | Encounter Summary ---
Demographics + + + | Address | [address] | | | [place] [address] | + + + | Home Phone [...] | | | | | [place] [address] | | + + + + + | Thania Mallory | ECON | [address] | | | | | [place] [address] | | + + + + + | Deidra Weldon | ECON | [address] | | | | | [place] | | | | | [address] | | + + + + + Care Team Providers + +------+ + | Care Household Appliance Mechanic Name | Role | Phone | [...] | | | | | Caro Chan [place], | | | | | | [place] [address] | | | +--------+ + + + [...] Denise | | | | | | [place], [place] | | | | | | [address] | | | | | | [phone] | | | | | | | [...] [facility] - | [address], | [place] [address] | | | IMMUNOGENETICS/TRANS | [address] | | | | PLANT LABORATORY | | | | + + + + + documented in this encounter Visit Diagnoses Not on filedocumented in this encounter"
--- OUTSIDE RECORDS SUMMARY | ~2019-01-06 | XMS | Encounter Summary ---
Demographics + + + | Address | [address] | | | [place] [address] | + + + | Home Phone [...] | | | | | [place] [address] | | + + + + + | Thania Mallory | ECON | [address] | | | | | [place] [address] | | + + + + + | Deidra Weldon | ECON | [address] | | | | | [place] | | | | | [address] | | + + + + + [...] | | | | | ANNALISA Hoffmann [facility] | [facility] | | | | | Rd [place], [place] | [place], [place] | | | | | [address] | [address] | | | | | [phone] | | | +--------+ + + + [...] Denise | | | | | | [place] | | | | | | [address] | | | | | | [phone] | | | | | | | | +--------+ + + + + documented as of this encounter Visit Diagnoses Not on filedocumented in this encounter"
--- OUTSIDE RECORDS SUMMARY | ~2019-01-06 | XMS | Encounter Summary ---
Demographics + + + | Address | [address] | | | [place] [address] | + + + | Home Phone [...] | | | | | [place] [address] | | + + + + + | Thania Mallory | ECON | [address] | | | | | [place] [address] | | + + + + + | Deidra Weldon | ECON | [address] | | | | | [place] | | | | | [address] | | + + + + + Care Team Providers + +------+ + | Care Legal Administrative Assistant Name | Role | Phone [...] [facility] | | | | | [facility] | [place], [place] | | | | | [address] [place] | [address] | | | | | [facility] Mailcode: | | | | | | [address] | | | | | | [place], [place] | | | | | | [address] | | | | | | [phone] | | | +--------+ + + + [...] Denise | | | | | | [place], [place] | | | | | | [address] | | | | | | [phone] | | | | | | | | +--------+ + + + + documented as of this encounter Visit Diagnoses Not on filedocumented in this encounter"
--- OUTSIDE RECORDS SUMMARY | ~2019-01-06 | XMS | Encounter Summary ---
Demographics + + + | Address | [address] | | | [place] [address] | + + + | Home Phone [...] | | | | | [place] [address] | | + + + + + | Thania Mallory | ECON | [address] | | | | | [place] [address] | | + + + + + | Deidra Weldon | ECON | [address] | | | | | [place] | | | | | [address] | | + + + + + Care Team Providers + +------+ + | Care Package Handler Name | Role | Phone | [...] | | | [place], | [place] [address] | | | | | [place] [address] | [phone] | | | | | | | [...] Denise | | | | | | [place], [place] | | | | | | [address] | | | | | | [phone] | | | | | | | | +--------+ + + + + documented as of this encounter Visit Diagnoses Not on filedocumented in this encounter"
--- OUTSIDE RECORDS SUMMARY | ~2019-01-06 | XMS | Encounter Summary ---
Demographics + + + | Address | [address] | | | [place] [address] | + + + | Home Phone [...] | | | | | [place] [address] | | + + + + + | Thania Mallory | ECON | [address] | | | | | [place] [address] | | + + + + + | Deidra Weldon | ECON | [address] | | | | | [place] | | | | | [address] | | + + + + + [...] | | | | | ANNALISA Hoffmann [facility] | [facility] | | | | | Rd [place], [place] | [place], [place] | | | | | [address] | [address] | | | | | [phone] | | | +--------+ + + + [...] Denies | | | | | | [place] | | | | | | [address] | | | | | | [phone] | | | | | | | | +--------+ + + + + documented as of this encounter Visit Diagnoses Not on filedocumented in this encounter"
--- OUTSIDE RECORDS SUMMARY | ~2019-01-06 | XMS | Encounter Summary ---
Demographics + + + | Address | [address] | | | [place] [address] | + + + | Home Phone [...] | | | | | [place] [address] | | + + + + + | Thania Mallory | ECON | [address] | | | | | [place] [address] | | + + + + + | Deidra Weldon | ECON | [address] | | | | | [place] | | | | | [address] | | + + + + + Care Team Providers + +------+ + | Care Loop Machine Operator Name | Role | Phone [...] Hoffmann | | | | | ANNALISA [facility] | [facility] | | | | | Rd [place], [place] | [place], [place] | | | | | [address] | [address] | | | | | [phone] | | | +--------+ + + + [...] Denise | | | | | | [place] | | | | | | [address] | | | | | | [phone] | | | | | | | | +--------+ + + + + documented as of this encounter Visit Diagnoses Not on filedocumented in this encounter"
--- OUTSIDE RECORDS SUMMARY | ~2019-01-06 | XMS | Encounter Summary ---
Demographics + + + | Address | [address] | | | [place] [address] | + + + | Home Phone [...] | | | | | [place] [address] | | + + + + + | Thania Mallory | ECON | [address] | | | | | [place] [address] | | + + + + + | Deidra Weldon | ECON | [address] | | | | | [place] | | | | | [address] | | + + + + + Care Team Providers + +------+ + | Care Senior Windows Systems Engineer Name | Role | Phone [...] | Update | | | | [facility] | [facility] | | | | | Rd [place], [place] | [place], [place] | | | | | [address] | [address] | | | | | [phone] | | | +--------+ + + + [...] [place] | | | | | | [address] | | | | | | [phone] | | | | | | | | +--------+ + + + + documented as of this encounter Visit Diagnoses Not on filedocumented in this encounter"
--- OUTSIDE RECORDS SUMMARY | ~2019-01-06 | XMS | Encounter Summary ---
Demographics + + + | Address | [address] | | | [place] [address] | + + + | Home Phone [...] | | | | | [place] [address] | | + + + + + | Thania Mallory | ECON | [address] | | | | | [place] [address] | | + + + + + | Deidra Weldon | ECON | [address] | | | | | [place] | | | | | [address] | | + + + + + Care Team Providers + +------+ + | Care Corporate Buyer Name | Role | Phone | + +------+ + | Shahid Camargo MD | PCP | | + +------+ + Encounter Details +--------+ + + + + | Date | Type | Department | Care Team | Description | +--------+ + + + + | 12/19/ | Document-Sc | UNKNOWN DEPARTMENT | Unknown . | | | 2012 | anned | [address] [facility] | | | | | | [facility] | | | | | | [place], [place] | | | | | | [address] | | | +--------+ + + + [...] [place] | | | | | | [address] | | | | | | [phone] | | | | | | | | +--------+ + + + + documented as of this encounter Visit Diagnoses Not on filedocumented in this encounter"
--- OUTSIDE RECORDS SUMMARY | ~2019-01-06 | XMS | Encounter Summary ---
Demographics + + + | Address | [address] | | | [place] [address] | + + + | Home Phone [...] | | | | | [place] [address] | | + + + + + | Thania Mallory | ECON | [address] | | | | | [place] [address] | | + + + + + | Deidra Weldon | ECON | [address] | | | | | [place] | | | | | [address] | | + + + + + Care Team Providers + +------+ + | Care Supervisor Dock Name | Role | Phone | + [...] | Decision | | | | [facility] | [facility] | | | | | Rd [place], [place] | [place], [place] | | | | | [address] | [address] | | | | | [phone] | | | +--------+ + + + [...] [place] | | | | | | [address] | | | | | | [phone] | | | | | | | | +--------+ + + + + documented as of this encounter Visit Diagnoses Not on filedocumented in this encounter"
--- OUTSIDE RECORDS SUMMARY | ~2019-01-06 | XMS | Encounter Summary ---
Demographics + + + | Address | [address] | | | [place] [address] | + + + | Home Phone [...] | Author | [facility] [place] | | | and Josephana | + + + | Organization | [facility] [...] Providers + +------+ + | Care Automatic Shirring Machine Operator Name | Role | Phone [...] + + | 11/15/ | Telephone | [facility] | George Torres RN | Lab Results | | 2019 | | [address] | | (Cytology report) | | | | [place] | | | | | | [address] | | | | | | [phone] | | | +--------+ + + + [...] [place] | | | | | | [place] [address] | | | | | | [phone] | | | | | | | | +--------+---------+ + + + documented as of this encounter Visit Diagnoses Not on filedocumented in this encounter"
--- OUTSIDE RECORDS SUMMARY | ~2019-01-06 | XMS | Encounter Summary ---
Demographics + + + | Address | [address] | | | [place] [address] | + + + | Home Phone [...] | | | | | [place] [address] | | + + + + + | Thania Mallory | ECON | [address] | | | | | [place] [address] | | + + + + + | Deidra Weldon | ECON | [address] | | | | | [place] | | | | | [address] | | + + + + + Care Team Providers + +------+ + | Care Manager Outreach Name | Role | Phone | + [...] Transplant | | | | ANNALISA [address] | [facility] [facility] [address] | Evaluation | | | | Rd [place], [place] | [place], [place] | | | | | [address] | [address] | | | | | [phone] | | | +--------+ + + + [...] Denise | | | | | | [place] | | | | | | [address] | | | | | | [phone] | | | | | | | | +--------+ + + + + documented as of this encounter Visit Diagnoses Not on filedocumented in this encounter"
--- OUTSIDE RECORDS SUMMARY | ~2019-01-06 | XMS | Encounter Summary ---
Demographics + + + | Address | [address] | | | [place] [address] | + + + | Home Phone [...] | | | | | [place] [address] | | + + + + + | Thania Mallory | ECON | [address] | | | | | [place] [address] | | + + + + + | Deidra Weldon | ECON | [address] | | | | | [place] | | | | | [address] | | + + + + + Care Team Providers + +------+ + | Care Marine Mechanic Name | Role | Phone | [...] Rd | | | | | [facility] | [place], [place] | | | | | [address] | [address] | | | | | Caro Chan Mailcode: | [phone] | | | | | [address] | | | | | | [place], [place] | | | | | | [address] | | | | | | [phone] | | | +--------+ + + + [...] Denise | | | | | | [place], [place] | | | | | | [address] | | | | | | [phone] | | | | | | | [...] + + | [facility] - | [address] | [place] | [phone] | | [place] | | | | + + + + + documented in this encounter Visit Diagnoses Not on filedocumented in this encounter"
--- OUTSIDE RECORDS SUMMARY | ~2019-01-06 | XMS | Encounter Summary ---
Demographics + + + | Address | [address] | | | [place] [address] | + + + | Home Phone [...] | | | | | [place] [address] | | + + + + + | Thania Mallory | ECON | [address] | | | | | [place] [address] | | + + + + + | Deidra Weldon | ECON | [address] | | | | | [place] | | | | | [address] | | + + + + + Care Team Providers + +------+ + | Care Cleaner Carpet And Upholstery Name | Role | Phone | + [...] (Evaluation | | | | ANNLAISA Hoffmann [facility] | [facility] [address] | Scheduled) | | | | [place], [place] | [place], [place] | | | | | [address] | [address] | | | | | [phone] | [phone] | | | | | | | [...] Denise | | | | | | [place] | | | | | | [address] | | | | | | [phone] | | | | | | | | +--------+ + + + + documented as of this encounter Visit Diagnoses Not on filedocumented in this encounter"
--- OUTSIDE RECORDS SUMMARY | ~2019-01-06 | XMS | Encounter Summary ---
Demographics + + + | Address | [address] | | | [place] [address] | + + + | Home Phone [...] | | | | | [place] [address] | | + + + + + | Thania Mallory | ECON | [address] | | | | | [place] [address] | | + + + + + | Deidra Weldon | ECON | [address] | | | | | [place] | | | | | [address] | | + + + + + Care Team Providers + +------+ + | Care Certified Pharmacy Tech Name | Role | Phone | [...] SW | | | | ANNALISA Hoffmann [facility] | [facility] [address] | follow-up on | | | | Rd [place], [place] | [place], [place] | [place] | | | | [address] | [address] | care plan) | | | | [phone] | | | +--------+ + + + [...] | | | | | | [place] | | | | | | [address] | | | | | | [phone] | | | | | | | | +--------+ + + + + documented as of this encounter Visit Diagnoses Not on filedocumented in this encounter"
--- OUTSIDE RECORDS SUMMARY | ~2019-01-06 | XMS | Encounter Summary ---
Demographics + + + | Address | [address] | | | [place] [address] | + + + | Home Phone [...] | | | | | [place] [address] | | + + + + + | Thania Mallory | ECON | [address] | | | | | [place] [address] | | + + + + + | Deidra Weldon | ECON | [address] | | | | | [place] | | | | | [address] | | + + + + + Care Team Providers + +------+ + | Care Bakery Supervisor Name | Role | Phone | [...] Decision | | | | ANNALISA Hoffmann [facility] | [facility] | | | | | Rd [place], [place] | [place], [place] | | | | | [address] | [address] | | | | | [phone] | | | +--------+ + + + [...] | | | | | | [place], [place] | | | | | | [address] | | | | | | [phone] | | | | | | | | +--------+ + + + + documented as of this encounter Visit Diagnoses Not on filedocumented in this encounter"
--- OUTSIDE RECORDS SUMMARY | ~2019-01-06 | XMS | Encounter Summary ---
Demographics + + + | Address | [address] | | | [place] [address] | + + + | Home Phone [...] | | | | | [place] [address] | | + + + + + | Thania Mallory | ECON | [address] | | | | | [place] [address] | | + + + + + | Deidra Weldon | ECON | [address] | | | | | [place] | | | | | [address] | | + + + + + Care Team Providers + +------+ + | Care Manufacturing Lead Name | Role | Phone | [...] Update | | | | ANNALISA Hoffmann [facility] | [facility] | | | | | [place], [place] | [place], [place] | | | | | [address] | [address] | | | | | [phone] | [phone] | | | | | | | [...] Denise | | | | | | [place], [place] | | | | | | [address] | | | | | | [phone] | | | | | | | | +--------+ + + + + documented as of this encounter Visit Diagnoses Not on filedocumented in this encounter"
--- OUTSIDE RECORDS SUMMARY | ~2019-01-06 | XMS | Encounter Summary ---
Demographics + + + | Address | [address] | | | [place] [address] | + + + | Home Phone [...] | | | | | [place] [address] | | + + + + + | Thania Mallory | ECON | [address] | | | | | [place] [address] | | + + + + + | Deidra Weldon | ECON | [address] | | | | | [place] | | | | | [address] | | + + + + + Care Team Providers + +------+ + | Care Sales Person Name | Role | Phone [...] | | 2012 | anned | [address] [facility] | | | | | | [facility] | | | | | | [place], [place] | | | | | | [address] | | | +--------+ + + + [...] Denise | | | | | | [place], [place] | | | | | | [address] | | | | | | [phone] | | | | | | | | +--------+ + + + + documented as of this encounter Visit Diagnoses Not on filedocumented in this encounter"
--- OUTSIDE RECORDS SUMMARY | ~2019-01-06 | XMS | Encounter Summary ---
Demographics + + + | Address | [address] | | | [place] [address] | + + + | Home Phone [...] | | | | | [place] [address] | | + + + + + | Thania Mallory | ECON | [address] | | | | | [place] [address] | | + + + + + | Deidra Weldon | ECON | [address] | | | | | [place] | | | | | [address] | | + + + + + Care Team Providers + +------+ + | Care Test Inspection Engineer Name | Role | Phone | [...] | ) | | | | [facility] | [facility] | | | | | Rd [place], [place] | [place], [place] | | | | | [address] | [address] | | | | | [phone] | | | +--------+ + + + [...] [place] | | | | | | [address] | | | | | | [phone] | | | | | | | | +--------+ + + + + documented as of this encounter Visit Diagnoses Not on filedocumented in this encounter"
--- OUTSIDE RECORDS SUMMARY | ~2019-01-06 | XMS | Encounter Summary ---
Demographics + + + | Address | [address] | | | [place] [address] | + + + | Home Phone [...] | | | | | [place] [address] | | + + + + + | Thania Mallory | ECON | [address] | | | | | [place] [address] | | + + + + + | Deidra Weldon | ECON | [address] | | | | | [place] | | | | | [address] | | + + + + + Care Team Providers + +------+ + | Care Com Writer Name | Role | Phone | [...] questions) | | | | ANNALISA Griffin [place] | [facility] | | | | | [place], [place] | [place], [place] | | | | | [address] | [address] | | | | | [phone] | | | +--------+ + + + [...] Denise | | | | | | [place] | | | | | | [address] | | | | | | [phone] | | | | | | | | +--------+ + + + + documented as of this encounter Visit Diagnoses Not on filedocumented in this encounter"
--- OUTSIDE RECORDS SUMMARY | ~2019-01-06 | XMS | Encounter Summary ---
Demographics + + + | Address | [address] | | | [place] [address] | + + + | Home Phone [...] | | | | | [place] [address] | | + + + + + | Thania Mallory | ECON | [address] | | | | | [place] [address] | | + + + + + | Deidra Weldon | ECON | [address] | | | | | [place] | | | | | [address] | | + + + + + Care Team Providers + +------+ + | Care Eap Specialist Name | Role | Phone | [...] | Update | | | | ANNALISA [facility] | [facility] | | | | | Rd [place], [place] | [place], [place] | | | | | [address] | [address] | | | | | [phone] | | | +--------+ + + + [...] | | | | | | [place] | | | | | | [address] | | | | | | [phone] | | | | | | | | +--------+ + + + + documented as of this encounter Visit Diagnoses Not on filedocumented in this encounter"
--- OUTSIDE RECORDS SUMMARY | ~2019-01-06 | XMS | Encounter Summary ---
Demographics + + + | Address | [address] | | | [place] [address] | + + + | Home Phone [...] | | | | | [place] [address] | | + + + + + | Thania Mallory | ECON | [address] | | | | | [place] [address] | | + + + + + | Deidra Weldon | ECON | [address] | | | | | [place] | | | | | [address] | | + + + + + Care Team Providers + +------+ + | Care Per Diem Clerk Name | Role | Phone | [...] Shun | | | | | ANNALISA [facility] | [facility] | | | | | Rd [place], [place] | [place], [place] | | | | | [address] | [address] | | | | | [phone] | | | +--------+ + + + [...] Denise | | | | | | [place], [place] | | | | | | [address] | | | | | | [phone] | | | | | | | | +--------+ + + + + documented as of this encounter Visit Diagnoses Not on filedocumented in this encounter"
--- OUTSIDE RECORDS SUMMARY | ~2019-01-06 | XMS | Encounter Summary ---
Demographics + + + | Address | [address] | | | [place] [address] | + + + | Home Phone [...] | | | | | [place] [address] | | + + + + + | Thania Mallory | ECON | [address] | | | | | [place] [address] | | + + + + + | Deidra Weldon | ECON | [address] | | | | | [place] | | | | | [address] | | + + + + + Care Team Providers + +------+ + | Care Stationary Engineer Name | Role | Phone | [...] Shun | | | | | at [facility] | [facility] | | | | | [address] [facility] | [place] [address] | | | | | [facility] | | | | | | Mailcode: [id number] [facility] | | | | | | [facility] | | | | | | [facility] | | | | | | [place] [address] | | | | | | [phone] | | | +--------+ + + + [...] Denise | | | | | | [place], [place] | | | | | | [address] | | | | | | [phone] | | | | | | | [...] | e | 11:49 AM | MEDICARE 9916 | procedure are in the | | [...] view image for the detailed interpretation from [employer] results. | CARDIOLOGY | + + + + + | Procedure Note | + + | Interface, Cardiology Results - 12/21/2012 9:38 AM PDT Please click on view image | | for the detailed interpretation from [employer] results. | + + + + + + + | Performing | Address | City/State/Zipcode | Phone Number | | Organization | | | | + + + + + | [facility] | [address] | [place], [place] | | | CARDIOLOGY | [address] | [address] | | + + + + + documented in this encounter Visit Diagnoses + + | Diagnosis | + + | Allergic purpura- MEDICARE 3327 Allergic purpura | + + documented in this encounter
--- OUTSIDE RECORDS SUMMARY | ~2019-01-06 | XMS | Encounter Summary ---
Demographics + + + | Address | [address] | | | [place] [address] | + + + | Home Phone [...] | | | | | [place] [address] | | + + + + + | Thania Mallory | ECON | [address] | | | | | [place] [address] | | + + + + + | Deidra Weldon | ECON | [address] | | | | | [place] | | | | | [address] | | + + + + + Care Team Providers + +------+ + | Care Game Programmer Name | Role | Phone | [...] date) | | | | ANNALISA Hoffmann [facility] | [facility] | | | | | Rd [place], [place] | [place], [place] | | | | | [address] | [address] | | | | | [phone] | | | +--------+ + + + [...] Denise | | | | | | [place], [place] | | | | | | [address] | | | | | | [phone] | | | | | | | | +--------+ + + + + documented as of this encounter Visit Diagnoses Not on filedocumented in this encounter"
--- OUTSIDE RECORDS SUMMARY | ~2019-01-06 | XMS | Encounter Summary ---
Demographics + + + | Address | [address] | | | [place] [address] | + + + | Home Phone [...] | | | | | [place] [address] | | + + + + + | Thania Mallory | ECON | [address] | | | | | [place] [address] | | + + + + + | Deidra Weldon | ECON | [address] | | | | | [place] | | | | | [address] | | + + + + + Care Team Providers + +------+ + | Care Scada Technician Name | Role | Phone | [...] | Nephrology at | RN [address] | | | | | Alexander | [facility] | | | | | [facility] | [place], [place] | | | | | [address] | [address] | | | | | [facility] Mailcode: | | | | | | [address] | | | | | | [place], [place] | | | | | | [address] | | | | | | [phone] | | | +--------+ + + + [...] Denise | | | | | | [place], [place] | | | | | | [address] | | | | | | [phone] | | | | | | | | +--------+ + + + + documented as of this encounter Visit Diagnoses + + | Diagnosis | + + | 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
--- OUTSIDE RECORDS SUMMARY | ~2019-01-06 | XMS | Encounter Summary ---
Demographics + + + | Address | [address] | | | [place] [address] | + + + | Home Phone [...] | | | | | [place] [address] | | + + + + + | Thania Mallory | ECON | [address] | | | | | [place] [address] | | + + + + + | Deidra Weldon | ECON | [address] | | | | | [place] | | | | | [address] | | + + + + + Care Team Providers + +------+ + | Care Overnight Cashier Name | Role | Phone | [...] | | [address] [facility] | [facility] | | | | | Rd [place], [place] | [place], [place] | | | | | [address] | [address] | | | | | [phone] | | | +--------+ + + + [...] [place] | | | | | | [address] | | | | | | [phone] | | | | | | | | +--------+ + + + + documented as of this encounter Visit Diagnoses Not on filedocumented in this encounter"
--- OUTSIDE RECORDS SUMMARY | ~2019-01-06 | XMS | Encounter Summary ---
Demographics + + + | Address | [address] | | | [place] [address] | + + + | Home Phone [...] | | | | | [place] [address] | | + + + + + | Thania Mallory | ECON | [address] | | | | | [place] [address] | | + + + + + | Deidra Weldon | ECON | [address] | | | | | [place] | | | | | [address] | | + + + + + Care Team Providers + +------+ + | Care Gasoline Catalyst Operator Name | Role | Phone | [...] Shun | | | | | [address] | [facility] | | | | | [place], [place] | [place] [address] | | | | | [address] | [phone] | | | | | | | [...] from patient and her family Pharmacy Preferences: [id number] [address] [place] [address] Updated Outpatient Medications: Current Medication List Name [...] questions regarding this information contact pharmacy, pager #[phone] Thank you, Juan David Batres Pager [phone] signed by Juan David Batres [facility] at [...] Denise | | | | | | [place] | | | | | | [address] | | | | | | [phone] | | | | | | | | +--------+ + + + + documented as of this encounter Visit Diagnoses Not on filedocumented in this encounter"
--- OUTSIDE RECORDS SUMMARY | ~2019-01-06 | XMS | Encounter Summary ---
Demographics + + + | Address | [address] | | | [place] [address] | + + + | Home Phone [...] | | | | | [place] [address] | | + + + + + | Thania Mallory | ECON | [address] | | | | | [place] [address] | | + + + + + | Deidra Weldon | ECON | [address] | | | | | [place] | | | | | [address] | | + + + + + Care Team Providers + +------+ + | Care Newspaper Editor Name | Role | Phone | [...] | | | | | Caro [address] [place], | | | | | | [place] [address] | | | +--------+ + + + [...] Denise | | | | | | [place], [place] | | | | | | [address] | | | | | | [phone] | | | | | | | [...] [facility] - | [address] | [place] [address] | | | IMMUNOGENETICS/TRANS | [address] | | | | [facility] | | | | + + + + + documented in this encounter Visit Diagnoses + + | Diagnosis | + + | End stage renal disease (HCC) End stage renal disease | + + documented in this encounter"
--- OUTSIDE RECORDS SUMMARY | ~2019-01-06 | XMS | Encounter Summary ---
Demographics + + + | Address | [address] | | | [place] [address] | + + + | Home Phone [...] | | | | | [place] [address] | | + + + + + | Thania Mallory | ECON | [address] | | | | | [place] [address] | | + + + + + | Deidra Weldon | ECON | [address] | | | | | [place] | | | | | [address] | | + + + + + Care Team Providers + +------+ + | Care Talent Sourcer Name | Role | Phone | [...] Update | | | | Alexander | [facility] | | | | | [facility] | [place], [place] | | | | | [address] | [address] | | | | | [facility] Mailcode: | | | | | | [address] | | | | | | [place], [place] | | | | | | [address] | | | | | | [phone] | | | +--------+ + + + [...] Denise | | | | | | [place] | | | | | | [address] | | | | | | [phone] | | | | | | | | +--------+ + + + + documented as of this encounter Visit Diagnoses Not on filedocumented in this encounter"
--- OUTSIDE RECORDS SUMMARY | ~2019-01-06 | XMS | Encounter Summary ---
Demographics + + + | Address | [address] | | | [place] [address] | + + + | Home Phone [...] | | | | | [place] [address] | | + + + + + | Thania Mallory | ECON | [address] | | | | | [place] [address] | | + + + + + | Deidra Weldon | ECON | [address] | | | | | [place] | | | | | [address] | | + + + + + Care Team Providers + +------+ + | Care Sheep Rancher Name | Role | Phone | + [...] ANNALISA Hoffmann | | | | | ([facility]) | [address] | Elias Elizondo | | | | | Procedures | [address] | Rd Mailcode: | | | | | TRANSTHORACI | [place], [place] | DCH8S | | | | | C | [address] | [facility] | | | | | ECHOCARDIOGR | Phone: | [place], [place] | | | | | AM, PEDS | [phone] | [address] | | | | | | Fax: | Phone: | | | | | | [phone] | [phone] | | | | | | | Fax: | | | | | | | [phone] | +--------+--------+ + + + + Reason [...] | [address] [facility] | [facility] | | | | | Rd [place], [place] | [place], [place] | | | | | [address] | [address] | | | | | [phone] | | | +--------+ + + + [...] Denise | | | | | | [place], [place] | | | | | | [address] | | | | | | [phone] | | | | | | | | +--------+ + + + + + +------+--------+ + + | Name | Type | Priori | Associated Diagnoses | Order Schedule | | | | ty | | | + +------+--------+ + + | CELESTINO JAMA RES-EVA | Lab | Routin | Allergic purpura- | Expected: 11/29/2012 | | | | e | MEDICARE 4618 | (Approximate), | | | | | [...] view image for the detailed interpretation from [employer] results. | CARDIOLOGY | + + + + + | Procedure Note | + + | Interface, Cardiology Results - 12/21/2012 9:38 AM PDT Please click on view image | | for the detailed interpretation from [employer] results. | + + + + + + + | Performing | Address | City/State/Zipcode | Phone Number | | Organization | | | | + + + + + | [facility] | [address] | [place], [place] | | | CARDIOLOGY | [address] | [address] | | + + + + + LIT HLA-B WILEY ZHANG (12/20/2012 10:02 AM PDT) + + | Specimen | + + | Blood - Blood | + + + + + + + | Performing | Address | City/State/Zipcode | Phone Number | | Organization | | | | + + + + + | [facility] - | [address] | [place] [address] | | | IMMUNOGENETICS/TRANS | [address] [...] [facility] - | [address] | [place] [address] | | | IMMUNOGENETICS/TRANS | [address] [...] - | [address] | [place], [place] | | | IMMUNOGENETICS/TRANS | [address] [...] - | [address] | [place], [place] | | | IMMUNOGENETICS/TRANS | [address] [...] [facility] - | [address] | [place] [address] | | | IMMUNOGENETICS/TRANS | [address] [...] [facility] - | [address] | [place] [address] | | | IMMUNOGENETICS/TRANS | [address] [...] [facility] | | | , SERUM | [facility] [employer] [facility],[address] | | [address] UNIV | | | | [address], [facility],[place] | | PTH - INTFC | | | | [address] | | | | | | [phone]. | | | | | | annalee, [...] [facility] | [address] | [place], [place] | | | UNIV PTH - INTFC | | [address] | | + + + + + [...] | + + + + + | [facility] | [address] | [place] [address] | | | SERVICES, HOMERO | LONG [...] | + + + + + | [facility] | [address] | [place] [address] | | | SERVICES, CORE | LONG [...] + | [facility] | [address] | [place] [address] | | | [place] | | | [...] [facility] | [address] | [place] [address] | | | SERVICES, CORE | PARK [...] | + + + + + | [facility] | [address] | [place] [address] | | | SERVICES, CORE | LONG [...] | + + + + + | [facility] | [address] | [place] [address] | | | SERVICES, CORE | LONG [...] - | | | | | | [facility] | | + + + + + + + + | Specimen | + + | Blood - Blood | + + + + + + + | Performing | Address | City/State/Zipcode | Phone Number | | Organization | | | | + + + + + | [facility] | [address] | [place] [address] | | | [place] | | | | + + + [...] at: | | | | | | http://www.cdc.gov/nchstp/tb/pubs/tbfactssheets/397973.htm | | | Test performed by: [facility] [address] | | | [address] [place] [address] | | + + + + + [...] | + + + + + | [facility] | [address] | [place] [address] | | | SERVICES, SPECIAL | PARK [...] gene at | DIAGNOSTIC | | nucleotide 82009. Please note that this assay only detects the | LABORATORIES | | [id number] point mutation and therefore a normal result [...] has been analyzed for the presence of [id number] | | | mutation in the prothrombin [...] | | Heterozygotes for the common prothrombin F25400B mutation constitute | | | approximately 2% of the normal white population (1,2). | | | References: 1.) Edwinat et al. Blood 88, 6936-5688 (1996). 2.) Ricardo | | | et al. Circulation 99, 999-1004 (1998). 3.) Al Montalvo, and | | | Chase. Amer J Clin Path 155, 439-47 (2001). This test was | | | developed and its performance characteristics determined by the [facility] | | | [facility]. It has | | | not been cleared or approved by the Food and Drug Administration. | | | FDA approval is not required for clinical use of this test, and | | | therefore validation was done as required under the requirements of | | | the Clinical Laboratory Improvement Act of 1988. The [facility] | [facility] is a fully | | | licensed and/or accredited clinical laboratory under CLIA, CAP, and | | | the [facility]. Please note that [...] + + + | [facility] | [address] | [place] [address] | | | DIAGNOSTIC | [address] [...] | + + + + + | [facility] | [address] | [place] [address] | | | SERVICES, CORE | LONG [...] | + + + + + | [facility] | [address] | [place] [address] | | | RIKY, CORE | LONG [...] [facility] | [address] | [place] [address] | | | SERVICES, HOMERO | LONG [...] [facility] | [address] | [place] [address] | | | HOMERO LAN | LONG [...] | | | | | | [place] [address] | | | | | | [phone]. | | | | | | Faisal [...] [facility] | [address] | [place], [place] | | | UNIV PTH - INTFC | | [address] | | + + + + + [...] | + + + + + | [facility] | [address] | [place] [address] | | | SERVICES, SPECIAL | PARK [...] + + + + | [facility] | [address] | [place] [address] | | | DIAGNOSTIC | [address] [...] + | [facility] - | [address] | [place] [address] | | | [place] | | | [...] + | [facility] | [address] | [place] [address] | | | [place] | | | [...] + | [facility] - | [address] | [place] [address] | | | [place] | | | | + + + [...] + | [facility] - | [address] | [place] [address] | | | [place] | | | [...] less......Not | | | | | | Rkwtwgao06.0-21.9 | | | | | | U/mL.........Indetermina [...] available | | | | | | [email or web address] | | | | | | vdx.Performed by [facility] | | | | | | [facility],[address] | | | | | | Rajendra, [facility] [address] | | | | | | [phone]. | | | | | | Faisal [...] [facility] | [address] | [place], [place] | | | UNIV PTH - INTFC | | [address] | | + + + + + [...] + | [facility] - | [address] | [place] [address] | | | [place] | | | | + + + [...] [facility] | [address] [facility] [address] | [place] [address] | | | SERVICES, CORE | LONG [...] by | | | | | | [facility],[address] | | | | | | [address] [place], [facility],[place] | | | | | | [address] | | | | | | [phone]. | | | | | | [facility], Faisal Caraballo, | | | [...] [facility] | [address] | [place], [place] | | | UNIV PTH - INTFC | | [address] | | + + + + + [...] + + | [facility] | [address] [facility] | [place] [address] | | | SERVICES, CORE | PARK [...] [facility] | [address] | [place] [address] | | | SERVICES, CORE | PARK [...] [facility] | [address] | [place] [address] | | | HOMERO LAN | PARK [...]
--- OUTSIDE RECORDS SUMMARY | ~2019-01-06 | XMS | Encounter Summary ---
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
--- OUTSIDE RECORDS SUMMARY | ~2019-01-06 | XMS | Encounter Summary ---
Demographics + + + | Address | [address] | | | [place] [address] | + + + | Home Phone [...] | | | | | [place] [address] | | + + + + + | Thania Mallory | ECON | [address] | | | | | [place] [address] | | + + + + + | Deidra Weldon | ECON | [address] | | | | | [place] | | | | | [address] | | + + + + + Care Team Providers + +------+ + | Care Gem Cutter Name | Role | Phone | [...] with SSA) | | | | Rd [place], [place] | [place], [place] | | | | | [address] | [address] | | | | | [phone] | | | +--------+ + + + [...] | | | | | | [place] | | | | | | [address] | | | | | | [phone] | | | | | | | | +--------+ + + + + documented as of this encounter Visit Diagnoses Not on filedocumented in this encounter"
--- OUTSIDE RECORDS SUMMARY | ~2019-01-06 | XMS | Encounter Summary ---
Demographics + + + | Address | [address] | | | [place] [address] | + + + | Home Phone [...] | | | | | [place] [address] | | + + + + + | Thania Mallory | ECON | [address] | | | | | [place] [address] | | + + + + + | Deidra Weldon | ECON | [address] | | | | | [place] | | | | | [address] | | + + + + + Care Team Providers + +------+ + | Care Swimming Pool Serviceperson Name | Role | Phone | + [...] Rd | | | | | [facility] | [place], [place] | | | | | [address] | [address] | | | | | [address] Mailcode: | [phone] | | | | | [address] | | | | | | [place], [place] | | | | | | [address] | | | | | | [phone] | | | +--------+--------+ + + + [...] Denise | | | | | | [place], [place] | | | | | | [address] | | | | | | [phone] | | | | | | | | +--------+ + + + + documented as of this encounter Visit Diagnoses Not on filedocumented in this encounter"
--- OUTSIDE RECORDS SUMMARY | ~2019-01-06 | XMS | Encounter Summary ---
Demographics + + + | Address | [address] | | | [place] [address] | + + + | Home Phone [...] | | | | | [place] [address] | | + + + + + | Thania Mallory | ECON | [address] | | | | | [place] [address] | | + + + + + | Deidra Weldon | ECON | [address] | | | | | [place] | | | | | [address] | | + + + + + Care Team Providers + +------+ + | Care Director Mobile Name | Role | Phone | + [...] Elizondo | | | | | ([facility]) | [address] | Rd [place], | | | | | Allergic | [place], [place] | [place] | | | | | purpura | [address] | [address] | | | | | ([facility]) | Phone: | Phone: | | | | | | [phone] | [phone] | | | | | | Fax: | Fax: | | | | | | [phone] | [phone] | +--------+--------+ + + + + Encounter Details +--------+ + + + + | Date | Type | Department | Care Team | Description | +--------+ + + + + | 12/20/ | Hospital | Radiology at [facility] | | | | 2012 | Encounter | [address] | | | | | | [address] Mailcode: | | | | | | [address] | | | | | | [place], [place] | | | | | | [address] | | | | | | [phone] | | | +--------+ + + + [...] [place] | | | | | | [address] | | | | | | [phone] | | | | | | | [...] | | + +---------+ + + | [facility] DEPARTMENT OF | | | | | RADIOLOGY | | | | + +---------+ + + documented in this encounter Visit Diagnoses + + | Diagnosis | + + | 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
--- OUTSIDE RECORDS SUMMARY | ~2019-01-06 | XMS | Encounter Summary ---
Demographics + + + | Address | [address] | | | [place] [address] | + + + | Home Phone [...] | | | | | [place] [address] | | + + + + + | Thania Mallory | ECON | [address] | | | | | [place] [address] | | + + + + + | Deidra Weldon | ECON | [address] | | | | | [place] | | | | | [address] | | + + + + + Care Team Providers + +------+ + | Care Entry Specialist Name | Role | Phone | [...] | Update | | | | [address] [facility] | [facility] | | | | | Rd [place], [place] | [place], [place] | | | | | [address] | [address] | | | | | [phone] | | | +--------+ + + + [...] Denise | | | | | | [place], [place] | | | | | | [address] | | | | | | [phone] | | | | | | | | +--------+ + + + + documented as of this encounter Visit Diagnoses Not on filedocumented in this encounter"
--- OUTSIDE RECORDS SUMMARY | ~2019-01-06 | XMS | Encounter Summary ---
Demographics + + + | Address | [address] | | | [place] [address] | + + + | Home Phone [...] | | | | | [place] [address] | | + + + + + | Thania Mallory | ECON | [address] | | | | | [place] [address] | | + + + + + | Deidra Weldon | ECON | [address] | | | | | [place] | | | | | [address] | | + + + + + Care Team Providers + +------+ + | Care Integration Manager Name | Role | Phone | [...] | | | | | nlein | [place], [place] | Mailcode: | | | | | purpura) | [address] | [address] | | | | | nephritis | Phone: | [facility] | | | | | (HCC) | [phone] | [place], [place] | | | | | Hemodialysis | Fax: | [address] | | | | | status | [phone] | Phone: | | | | | (HCC) | | [phone] | | | | | Chronic | | Fax: | | | | | kidney | | [phone] | | | | | disease, | [...] | | 2014 | Encounter | at [facility] [address] | | | | | | [address] | | | | | | Mailcode: DCH[address]S | | | | | | [address] | | | | | | [place], [place] | | | | | | [address] | | | | | | [phone] | | | +--------+ + + + [...] Denise | | | | | | [place], [place] | | | | | | [address] | | | | | | [phone] | | | | | | | [...] | e | 1:18 PM | MEDICARE 9074 HSP | procedure are in the | [...] 2:35 PM PST Echocardiography Laboratory | | [address] | | [place] [address] | | ; | | [id number] | | | | Transthoracic Echocardiogram Report | | | | | | NAME: DARA WELDON Study Date: 01/20/2015 1:18:29 PM | | Order #: [id number] ACC #: [id number] | | | | | | : [...] on 01/20/2015 at 2:35:17 PM | | Alley Worker: YARITZA KLINE [facility] | | | | | | cc: | | | | | | Modes utilized | | TTE 35866; Spectral Doppler 20611; Color flow Doppler 54573; | | | | | | | | Final | + + + + + + + | Performing | Address | City/State/Zipcode | Phone Number | | Organization | | | | + + + + + | [facility] | [address] | [place], [place] | | | CARDIOLOGY | [address] | [address] | | + + + + + [...]
--- OUTSIDE RECORDS SUMMARY | ~2019-01-06 | XMS | Encounter Summary ---
Demographics + + + | Address | [address] | | | [place] [address] | + + + | Home Phone [...] | | | | | [place] [address] | | + + + + + | Thania Mallory | ECON | [address] | | | | | [place] [address] | | + + + + + | Deidra Weldon | ECON | [address] | | | | | [place] | | | | | [address] | | + + + + + Care Team Providers + +------+ + | Care Deposit Refund Clerk Name | Role | Phone | [...] | | [facility] | [place], [place] | | | | | [address] | [address] | | | | | Caro Chan Mailcode: | [phone] | | | | | [address] | | | | | | [place], [place] | | | | | | [address] | | | | | | [phone] | | | +--------+ + + + [...] [facility] | | | | | | [address] | | | | | | [phone] | | | | | | | | +--------+ + + + + documented as of this encounter Visit Diagnoses Not on filedocumented in this encounter"
--- OUTSIDE RECORDS SUMMARY | ~2019-01-06 | XMS | Encounter Summary ---
Demographics + + + | Address | [address] | | | [place] [address] | + + + | Home Phone [...] | | | | | [place] [address] | | + + + + + | Deidra Weldon | ECON | [address] | | | | | [place] | | | | | [address] | | + + + + + Care Team Providers + +------+ + | Care Tax Associate Name | Role | Phone | [...] Edil Hoffmann | | | | | ANNLAISA [facility] | [facility] | | | | | [address] [place], [place] | [place], [place] | | | | | [address] | [address] | | | | | [phone] | | | +--------+ + + + [...] Denise | | | | | | [place], [place] | | | | | | [address] | | | | | | [phone] | | | | | | | | +--------+ + + + + documented as of this encounter Visit Diagnoses Not on filedocumented in this encounter"
--- OUTSIDE RECORDS SUMMARY | ~2019-01-06 | XMS | Encounter Summary ---
Demographics + + + | Address | [address] | | | [place] [address] | + + + | Home Phone [...] | | | | | [place] [address] | | + + + + + | Thania Mallory | ECON | [address] | | | | | [place] [address] | | + + + + + | Deidra Weldon | ECON | [address] | | | | | [place] | | | | | [address] | | + + + + + Care Team Providers + +------+ + | Care Recruiting Associate Name | Role | Phone | [...] | | | | | [place], | [place], [place] | | | | | | [place] | [address] | | | | | | [address] | Phone: | | | | | | Phone: | [phone] | | | | | | [phone] | | | | | | | Fax: | | | | | | | [phone] | | +--------+--------+ + + + + Encounter Details +--------+---------+ + + + | Date | Type | Department | Care Team | Description | +--------+---------+ + + + | 05/11/ | Office | Specialty Clinics | Sudhakar Joy | [facility] | | 2016 | Visit | at [facility] [address] | [address], [address] | ([place] | | | | [address] | [address] | purpura) nephritis | | | | Mailcode: [facility] | [place], [place] | (Primary Dx); Anemia | | | | [place] | [address] | of chronic kidney | | | | [place], [place] | [phone] | failure, stage 5 | | | | [address] | | ([facility]) | | | | [phone] | | | +--------+---------+ + + + [...] Services [address] Mail code [facility] [place], [place] [address] Estrella Brennan MA - 05/12/2015 10:48 AM [...] Denise | | | | | | [place], [place] | | | | | | [address] | | | | | | [phone] | | | | | | | [...]
--- OUTSIDE RECORDS SUMMARY | ~2019-01-06 | XMS | Encounter Summary ---
Demographics + + + | Address | [address] | | | [place] [address] | + + + | Home Phone [...] + | Author | [facility] | | | and Josephana | + + + | Organization | [facility] | | | [...] Providers + +------+ + | Care Railroad Brake Repairer Name | Role | Phone | [...] + + | 12/19/ | Telephone | [facility] | George Torres RN | Congestive Heart | | 2019 | | [address] | | Failure (Reviewed | | | | [place], [place] | | for CHF Quality | | | | [address] | | Measures) | | | | [phone] | | | +--------+ + + + [...] [address] | | | | | | [place] [address] | | | | | | [phone] | | | | | | | | +--------+---------+ + + + documented as of this encounter Visit Diagnoses Not on filedocumented in this encounter"
--- OUTSIDE RECORDS SUMMARY | ~2019-01-06 | XMS | Encounter Summary ---
Demographics + + + | Address | [address] | | | [place] [address] | + + + | Home Phone [...] | Author | [facility] [employer] (Historical as of | | | 10-20-18) | + + + | Organization | [facility] [employer] (Historical as of | | | 10-20-18) [...] | | Internal | Diagnoses | | [facility] 4th | | | | Medicine | SOB | | [address] | | | | | (shortness | | [address] | | | | | of breath) | | [address] | | | | | Pleural | | [place], [place] | | | | | effusion on | | [address] Phone: | | | | | right ESRD | | [phone] | | | | | needing | | Fax: | | | | | dialysis | | [phone] | | | | | (HCC) | | | +--------+--------+ + + + + Encounter Details +--------+ + + + + | Date | Type | Department | Care Team | Description | +--------+ + + + + | 10/17/ | Hospital [facility] | Vivek Teran, | SOB (shortness of | | 2019 - | Encounter | [facility] | MD [address] | breath) (Primary | | | | [address] | [place] [address] | Dx); Pleural | | 10/20/ | | [address] | [phone] | effusion on right; | | 2019 | | [place] [address] | | ESRD needing | | | | [phone] | Nikita, | dialysis ([facility]); End | | | | | MD Naresh [address] | stage renal disease | | | | | [address] | (HCC) | | | | | [place] [address] | | | | | | [phone] | | | | | | | | | | | | Gerber Pearson MD | | | | | | [address] | | | | | | [place] [address] | | | | | | [phone] | | | | | | | [...] note may be different from the original. [facility]: NEPHROLOGY Progress Note Dara Weldon 23 y.o. [id number] female TIEN NICHOLSON 23-year-old female with [...] AV FISTULA; Surgeon: Rik Simon MD; Location: [facility] OR; Service: Vascula r; Laterality: Left; cephalic AV FISTULA REPAIR Left 03/07/2014 Procedure: AV FISTULA - GRAFT REPAIR/REVISION; Surgeon: Rik Simon MD; Location: [facility] IN OR; Service: Vascular; Laterality: Left; DECLOT GRAFT Left 03/07/2014 Procedure: GRAFT - DECLOT; Surgeon: Rik Simon MD; Location: [facility] MAIN OR; Service: Vas cular; Laterality: Left; DIALYSIS FISTULA CREATION N/A 04/08/2014 Procedure: DIALYSIS CATHETER - INSERTION; Surgeon: Rik Simon MD; Location: [facility] MAIN OR ; Service: Vascular; Laterality: N/A; tunneled catheter LAPAROSCOPIC PERITONEAL DIALYSIS CATHETER INSERTION x2 LAPAROSCOPIC PERITONEAL DIALYSIS CATHETER INSERTION Right 07/2013 current dialysis access MWF dialysis RENAL BIOPSY Left 2003 SUPERFICIALIZATION OF AV FISTULA Left 06/24/2014 Procedure: AV FISTULA - SUPERFICIALIZATION; Surgeon: Rik Simon MD; Location: [facility] MAIN OR; Service: Vascular; Laterality: [...] file Social History Narrative She lives in [facility]. She does not work. She has 1 [...] ral space is punctured with an 5 Moldovan [employer] centesis catheter. Fluid is aspirated without complication. [...] 1 VIEW (10/17/2018); CHEST TWO V IEWS [id number] (10/17/2018); FINDINGS: Compared to the prior examination [...] MR, severe TR.severe pulmonary hypertens ion Chest b-yzo-edsbmanpmlyh with pulmonary edema and large right pleural [...] earlier and charting completed later Dictation software, Charitybuzz, used which may contain error for similar sounding words even af ter review. Personal communication requested for any clarification. Gerber Pearson MD - 10/19/2018 7:48 AM PDTFormatting of this note may be different from the original. [facility]: Hospitalist Progress Note Hospital [...] the [facility] at [facility] in [place] on 08/21 where she underwent right th [...] BUN 90 on admission -History of a Morgan Schnlein purpura -Last hemodialysis approximately 2 weeks [...] may be diffe rent from the original. [facility]: Hospitalist Progress Note Hospital [...] the [facility] gency department at [facility] in [place] on 08/21 where she underwent right th [...] BUN 90 on admission -History of a Morgan Schnlein purpura -Last hemodialysis approximately 2 weeks [...] valsartan 40 mg -Discussed case with Dr. Mamhood over the phone; outpatient follow-up recommended #3. [...] note may be different from the original. [facility]: NEPHROLOGY Progress Note Dara Weldon 23 y.o. [id number] female [facility] Day: LOS: 1 day 23-year-old female [...] AV FISTULA; Surgeon: Rik Simon MD; Location: [facility] OR; Service: Vascula r; Laterality: Left; cephalic AV FISTULA REPAIR Left 03/07/2014 Procedure: AV FISTULA - GRAFT REPAIR/REVISION; Surgeon: Rik Simon MD; Location: [facility] IN OR; Service: Vascular; Laterality: Left; DECLOT GRAFT Left 03/07/2014 Procedure: GRAFT - DECLOT; Surgeon: Rik Simon MD; Location: [facility] MAIN OR; Service: Vas cular; Laterality: Left; DIALYSIS FISTULA CREATION N/A 04/08/2014 Procedure: DIALYSIS CATHETER - INSERTION; Surgeon: Rik Simon MD; Location: [facility] MAIN OR ; Service: Vascular; Laterality: N/A; tunneled catheter LAPAROSCOPIC PERITONEAL DIALYSIS CATHETER INSERTION x2 LAPAROSCOPIC PERITONEAL DIALYSIS CATHETER INSERTION Right 07/2013 current dialysis access MWF dialysis RENAL BIOPSY Left 2003 SUPERFICIALIZATION OF AV FISTULA Left 06/24/2014 Procedure: AV FISTULA - SUPERFICIALIZATION; Surgeon: Rik Simon MD; Location: [facility] MA[facility] OR; Service: Vascular; Laterality: [...] file Social History Narrative She lives in [facility]. She does not work. She has 1 [...] QTC Calculation (Bezet) 469 ms Calculated P Berg[place] 46 degrees Calculated R [place] 127 degrees Calculated T Berg[place] 94 degrees Diagnosis Normal sinus rhythm Right [...] MR, severe TR.severe pulmonary hypertens ion Chest s-qbq-krmgyyikvkjm with pulmonary edema and large right pleural [...] earlier and charting completed later Dictation software, Charitybuzz, used which may contain error for similar sounding words even af ter review. Personal communication requested for any clarification. Gerber Pearson MD - 10/17/2018 7:17 AM PDTFormatting of this note may be different from the original. [facility]: Hospitalist Progress Note Hospital [...] the [facility] gency department at [facility] in [place] on 08/21 where she underwent right th [...] the case over the phone with patient's incident response engineer Dr. Mahmood, recommends medi oly management and [...] creatinine 14, BUN 90 -History of a Morgan Schnlein purpura -Last hemodialysis approximately 2 weeks [...] [address] | | | | | [facility], | | | | | [place] [address] | | | + + + + + + + | Specimen | + + | Blood | + + + + + + + | Performing | Address | City/State/Zipcode | Phone Number | | Organization | | | | + + + + + | [facility] | [address] | [place] [address] | [phone] | | LABORATORY | [address]vd[address] | | [...] CHEST 1 VIEW (10/17/2018); CHEST TWO VIEWS [id number] | | | (10/17/2018); FINDINGS: Compared to [...] VIEW | | (10/17/2018); CHEST TWO VIEWS 55771 (10/17/2018); | | FINDINGS: | | Compared [...] [facility] | [address] | [place] [address] | | + + + + + [...] pleural space is punctured with an 5 Moldovan [employer] | | | catheter. Fluid is aspirated [...] pleural space is punctured with an 5 Moldovan [employer] | | centesis catheter. Fluid is [...] SURI [facility] | [address] | [facility] [address] | | + + + + + [...] + + + + | Calculated P Bergland | 46 | degrees | [facility] | + + + + + | Calculated R Bergland | 127 | degrees | [facility] | + + + + + | Calculated T Bergland | 94 | degrees | [facility] | + + + + + | Diagnosis | Normal sinus rhythmRight | | [facility] | | | axis | [...] | + + + + + | [facility] | [address] | [place] [address] | | + + + + + [...] the | | | | | MDRD [facility] traceable | | | | | equation.Testing | | | | | performed at [facility], [address] | | | | | [facility], | | | | | [place] [address] | | | + + + + + + + | Specimen | + + | Blood | + + + + + + + | Performing | Address | City/State/Zipcode | Phone Number | | Organization | | | | + + + + + | [facility] | [address] [place] [address] | [place] [address] | [phone] | | LABORATORY | [address]vd[address] | | | + + + + + Magnesium (10/18/2018 5:44 AM) + + + + + | Component | Value | Ref Range | Performed At | + + + + + | MAGNESIUM | 2.4Comment: Testing | 1.7 - 2.4 mg/dL | [facility] | | | performed at [facility], [address] | | LABORATORY | | | [address], | | | | | [place] [address] | | | + + + + + + + | Specimen | + + | Blood | + + + + + + + | Performing | Address | City/State/Zipcode | Phone Number | | Organization | | | | + + + + + | [facility] | [address] | [place] [address] | [phone] | | LABORATORY | [address] | | [...] | DIFF TYPE | AUTOMATED | | [facility] | | | | | LABORATORY | [...] [facility], | | | | | [place] [address] | | | | |Testing performed at [facility], [address] [facility], [place] [address] | | | | | | | | + + + + + + + | Specimen | + + | Blood | + + + + + + + | Performing | Address | City/State/Zipcode | Phone Number | | Organization | | | | + + + + + | [facility] | [address] | [place] [address] | [phone] | | LABORATORY | [address] | | | + + + + + Troponin I (10/17/2018 6:05 PM) + + + + + | Component | Value | Ref Range | Performed At | + + + + + | TROPONIN I | 0.175 (H)Comment: 0.04 | 0.00 - 0.04 ng/mL | [facility] | | | ng/mL [...] | | | [facility] [place] [address] | | | | | [facility];[place] [address] | | | + + + + + + + | Specimen | + + | Blood | + + + + + + + | Performing | Address | City/State/Zipcode | Phone Number | | Organization | | | | + + + + + | [facility] | [address] | [place] [address] | | + + + + + CPK (10/17/2018 6:05 PM) + + + + + | Component | Value | Ref Range | Performed At | + + + + + | CPK | 443 (H)Comment: Testing | 30 - 240 U/L | [facility] | | | performed at [facility];[address] | | | | | [address];[place] | | | | | [address] | | | + + + + + + + | Specimen | + + | Blood | + + + + + + + | Performing | Address | City/State/Zipcode | Phone Number | | Organization | | | | + + + + + | [facility] | [address] | [place] [address] | | + + + + + Troponin I (10/17/2018 11:59 AM) + + + + + | Component | Value | Ref Range | Performed At | + + + + + | TROPONIN I | 0.119 (H)Comment: 0.04 | 0.00 - 0.04 ng/mL | [facility] | | | ng/mL [...] | | [facility];[address] | | | | | Blvd;[place] [address] | | | + + + + + + + | Specimen | + + | Blood | + + + + + + + | Performing | Address | City/State/Zipcode | Phone Number | | Organization | | | | + + + + + | [facility] | [address] | [place] [address] | | + + + + + CPK (10/17/2018 11:59 AM) + + + + + | Component | Value | Ref Range | Performed At | + + + + + | CPK | 623 (H)Comment: Testing | 30 - 240 U/L | [facility] | | | performed at [facility];[address] | | | | | [address];[place] | | | | | [address] | | | + + + + + + + | Specimen | + + | Blood | + + + + + + + | Performing | Address | City/State/Zipcode | Phone Number | | Organization | | | | + + + + + | [facility] | [address] [facility] | [place] [address] | | + + + + + Protime-INR (10/17/2018 8:10 AM) + + + + + | Component | Value | Ref Range | Performed At | + + + + + | INR | 1.2Comment: REFERENCE | | [facility] | | | RANGE:0.9 [...] | performed at [facility];[address] | | | | | [address];[place] | | | | | [address] | | | + + + + + + + | Specimen | + + | Blood | + + + + + + + | Performing | Address | City/State/Zipcode | Phone Number | | Organization | | | | + + + + + | [facility] | [address] | [place] [address] | | + + + + + [...] pleural effusion. | | Signed by: Eliza Echlos Julie | | Sign Date/Time: 10/17/2018 4:25 AM | + + + + + + + | Performing | Address | City/State/Zipcode | Phone Number | | Organization | | | | + + + + + | [facility] | [address] | [place] [address] | | + + + + + [...] + + + + | Calculated P Bergland | 33 | degrees | [facility] | + + + + + | Calculated R Bergland | -22 | degrees | [facility] | + + + + + | Calculated T Bergland | 92 | degrees | [facility] [...] | | | | | ONLY, -COMPUTER (612), | | | | | news video editor Daniela Esquivel | | | | | (18) on 10/17/2018 | | | | | 9:07:21 AM | | | + + + + + + + + + + | Performing | Address | City/State/Zipcode | Phone Number | | Organization | | | | + + + + + | [facility] | [address] | [place] [address] | | + + + + + Brain natriuretic peptide (10/17/2018 3:49 AM) + + + + + | Component | Value | Ref Range | Performed At | + + + + + | BRAIN NATRIURETIC | 1151.26 (H)Comment: | 0 - 100 pg/mL | [facility] | | PEPTIDE | Testing performed at | | | | | [facility];[address] | | | | | [address];[place] [address] | | | + + + + + + + + + + | Performing | Address | City/State/Zipcode | Phone Number | | Organization | | | | + + + + + | [facility] | [address] | [place] [address] | | + + + + + Troponin I, Lab (10/17/2018 3:49 AM) + + + + + | Component | Value | Ref Range | Performed At | + + + + + | TROPONIN I | 0.151 (H)Comment: 0.04 | 0.00 - 0.04 ng/mL | [facility] | | | ng/mL [...] [place];[address] | | | | [address];[place] [address] | | | + + + + + + + | Specimen | + + | Blood | + + + + + + + | Performing | Address | City/State/Zipcode | Phone Number | | Organization | | | | + + + + + | [facility] | [address] | [facility] [place] [address] | | + + + + + Cardiac Panel (10/17/2018 3:49 AM) + + + + + | Component | Value | Ref Range | Performed At | + + + + + | WBC | 6.63 | 3.80 - 11.00 K/uL | [facility] | + + + + + | RBC | 3.07 (L) | 3.70 - 5.10 M/uL | [facility] | + + + + + | HGB | 10.9 (L) | 11.3 - 15.5 g/dL | [facility] | + + + + + | HCT | 32.7 (L) | 34.0 - 46.0 % | [email or web address] | + + + + + [...] 4.68 | 1.90 - 7.40 K/uL | [facility] | + + + + + | LYMPHOCYTES ABS | 1.00 | 1.00 - 3.90 K/uL | [facility] | + + + + + | MONOCYTES ABS | 0.26 | 0.00 - 0.80 K/uL | [facility] | + + + + + | EOSINOPHILS ABS | 0.60 (H) | 0.00 - 0.50 K/uL | [facility] | + + + + + | BASOPHILS ABS | 0.08 | 0.00 - 0.10 K/uL | [facility] | + + + + + | MORPHOLOGY | 2+ | | [facility] | | | Comment: | | | | | MACRO | | | | | NORMAL PLT MORPH | | | | | 1+ | | | | | ANISO | | | | | | | | + + + + + | Platelet Estimate | ADEQUATE | | [facility] | + + + + + | SODIUM | 142 | 135 - 145 mmol/L | [facility] | + + + + + | POTASSIUM | 5.5 (H)Comment: SLT | 3.5 - 4.9 mmol/L | [facility] | | | HEMOLYSIS | | | + + + + + | CHLORIDE | 104 | 99 - 109 mmol/L | [facility] | + + + + + | CO2 | 17 (L) | 23 - 32 mmol/L | [facility] | + + + + + [...] 0.6 | 0.1 - 1.5 mg/dL | [facility] | + + + + + | ALK PHOS | 85 | 35 - 115 U/L | [facility] | + + + + + | AST | 40 | 10 - 45 U/L | [facility] | + + + + + | ALT | 31 | 10 - 65 U/L | [facility] | + + + + + | EGFR | 3 (L)Comment: GFR <60: | >60 mL/min/1.73m2 | [facility] | | | CHRONIC [...] SLT | 30 - 240 U/L | [facility] | | | HEMOLYSIS | | | + + + + + | INR | 1.2Comment: REFERENCE | | [facility] | | | RANGE:0.9 [...] 23 | 23 - 32 seconds | [facility] | + + + + + | MMB | 17.8 (H) | 0.5 - 3.6 ng/mL | [facility] | + + + + + | CK-MB Index | UNABLE TO | | [facility] | | | CALCULATEComment: | | | | | Testing performed at | | | | | [facility];[address] [place] [address] | | | | | Blvd;[place] [address] | | | + + + + + + + + + + | Performing | Address | City/State/Zipcode | Phone Number | | Organization | | | | + + + + + | [facility] | [address] | [place] [address] | | + + + + + ED INFORMATION EXCHANGE (10/17/2018 1:10 AM) + + + | Narrative | Performed At | + + + | [id number] Criteria Met Care | ED | | [...] | | Medical/Surgical 05/28/18 12:00 AM [facility] | | | PATIENT HAS AN APT WITH PCP DR NICHOLSON ON 09/11/18. | | | PATIENT GASTROENTEROLOGIST- DR [phone] Patient is | | | currently established with [facility]. If patient is seen in | | | the ED during business hours. Please contact CHWs at [facility] | | | [facility]. Care Recommendation: This patient has had [...] | | mo.) Facility Visits Low Acuity [facility] 4 0 | | | [facility] 12 0 Total 16 0 Note: [...] | or [facility] [place] [facility] | [facility] [place] | | | Emergency Chief Complaint: EXCESS FLUID Aug 20, [address] [facility] St[address] | | | 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 Emergency Personal | | | history of nicotine dependence Other specified respiratory | | | disorders Cough Radiographic dye allergy status | | | Allergy status to narcotic agent status Chronic kidney disease, | | | unspecified Allergy status to other drugs, medicaments and | | | biological substances status Jun 19, [address] [facility] | | | 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 | | | [place] Emergency Shortness of breath | | | Fluid overload, unspecified Hyperkalemia Radiographic | | | dye allergy status Allergy status to narcotic agent status | | | Other correction (current) drug therapy Allergy status to | | | other drugs, medicaments and biological substances status | | | Unspecified asthma, uncomplicated Dependence on renal dialysis | | | Chronic kidney disease, unspecified Jun 11, [address] [facility] St[address] | | | [place] Emergency Chronic pulmonary edema | | | Shortness of breath Radiographic dye allergy status | | | Personal history of nicotine dependence Other buttermilk drier operator | | | (current) drug therapy USP (current) use of opiate | | | analgesic Recent Inpatient Visit Summary Date Facility | | | City State Type Diagnoses or Chief Complaint Aug 20, 2018 [facility] | | | [facility] General Medicine Pleural Effusion | | | Chronic pulmonary edema July 18, 2018 [facility] | | | [facility] General Medicine Hypoxemia Personal history | | | of other diseases of urinary system Fever, unspecified | | | Pleural effusion, not elsewhere classified End stage renal | | | disease Dependence on renal dialysis Anemia in chronic | | | kidney disease Pulmonary hypertension, unspecified | | | Chronic right heart failure May 26, 2018 [facility] | | | [facility] General Medicine Acute respiratory distress | [...] 28, | | | 2019 - Current Gl[employer] Portal This patient has registered | | | at the [facility] Emergency Department For more | | | information visit: | | | [email or web address] | | | [email or web address] PLEASE NOTE: 1. [...] | | completeness of information provided. 2019 [employer] | | | [place] - [email or web address] | | + + + + + | Procedure Note | + + | Interface, Lab - 10/17/2018 1:12 AM PDT Formatting of this note may be different | | from the original.[id number] [id number] [facility] Care Guidelines 10 in | | 12 2 in 2Security and SafetyNo recent Security Events currently on fileED Care | | GuidelinesThere are currently no ED Care Guidelines for this patient. Please check your | | facility's medical records system.Care HistoryMedical/Surgical05/28/18 12:00 AM [facility] | | [facility] PATIENT HAS AN APT WITH PCP DR NICHOLSON ON 09/11/18. PATIENT | | GASTROENTEROLOGIST- DR [phone] Patient is currently established with | [facility]. If patient is seen in the ED during business hours. Please contact CHWs | | at [facility].Care Recommendation:This patient has had 5 or [...] Visit Count (12 mo.)Facility Visits Low Acuity [facility] | | Center 4 0 [facility] 12 0 Total 16 0 Note: [...] | | [facility] [address] [facility] Emergency Oct 16, 2018 [facility] | | [place] Emergency Chief Complaint: EXCESS FLUID Aug 20, 2018 [facility]. | | [place] Emergency Dependence on renal dialysis Chronic kidney | | disease, unspecified Allergy status to other drugs, medicaments and biological | | substances status Chronic pulmonary edema Other correction (current) drug therapy | | Allergy status to narcotic agent status Dyspnea, unspecified Radiographic dye | | allergy status Aug 13, 2018 [facility] [place] Emergency Allergy status to [...] dialysis Chest pain, unspecified Aug 13, 2018 [facility] | | Emergency July 18, 2018 [facility] Emergency Cough Pneumonia | | Hypoxemia Pleural effusion, not elsewhere classified Fever, unspecified | | Personal history of other diseases of urinary system July 18, [address] [facility] [place] | | 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 Allergy status to other [...] or Chief Complaint Aug | | 2018 [facility] Reji NunnEL [facility] General Medicine Pleural Effusion Chronic | | pulmonary [facility] General Medicine | | Hypoxemia Personal history of other diseases of urinary system Fever, unspecified | | Pleural effusion, not elsewhere classified End stage renal disease Dependence | | on renal dialysis Anemia in chronic kidney disease Pulmonary hypertension, | | unspecified Chronic right heart failure [facility] | | General Medicine Acute respiratory distress Chest pain, unspecified Pleural | | effusion, not elsewhere classified Other ascites Dependence on renal dialysis | | Hyperkalemia Other disorders of phosphorus metabolism End stage renal disease | | Other specified personal risk factors, not elsewhere classified Acute systolic | | (congestive) heart failure Care TeamProvider [facility] Type Phone Fax Service Dates BHARAT, | | TIEN Gallagher MD Internal Medicine May 28, 2018 - Current Collective PortalThis patient | | has registered at the [facility] For more | | information visit: | | [email or web address] PLEASE | | NOTE: 1. Any care [...] or completeness of information | | provided.2019 [employer] | | Personal history of other diseases of urinary system | | | |July 18, 2018 [facility] [place] [facility] [facility] [place] [facility] | | Personal history of nicotine dependence | | Other specified respiratory disorders | | Cough | | Radiographic dye allergy status | | Allergy status to narcotic agent status | | Chronic kidney disease, unspecified | | Allergy status to other drugs, medicaments and biological substances status | | | |Jun 19, 2018 [facility] [place] [facility] [facility] 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 [place] [facility] | | Shortness of breath | | Fluid overload, unspecified | | Hyperkalemia | | Radiographic dye allergy status | | Allergy status to narcotic agent status | | Other buttermilk drier operator (current) drug therapy | | Allergy status to other drugs, medicaments and biological substances status | | Unspecified asthma, uncomplicated | | Dependence on renal dialysis | | Chronic kidney disease, unspecified | | | |Jun 11, 2018 [facility] [place] [facility] [place] [facility] | | Chronic pulmonary edema | | Shortness of breath | | Radiographic dye allergy status | | Personal history of nicotine dependence | | Other correction (current) drug therapy | | USP (current) use of opiate analgesic | | | | | | | |Recent Inpatient Visit Summary | |Date Facility City State Type Diagnoses or Chief Complaint | |Aug 20, 2018 [facility] General Medicine | | Pleural Effusion | | Chronic pulmonary edema | | | |July 18, 2018 [facility] General Medicine | | Hypoxemia | | [...] |May 26, 2018 [facility] General Medicine | | Acute respiratory distress [...] 28, 2018 - Current | | | |[email or web address] Portal | |This patient has registered at the [facility] | |For more information visit: [email or web address] | |PLEASE NOTE: | | 1. Any [...] of information provided. | | | |2019 [employer] | + + + +---------+ + + [...]
--- OUTSIDE RECORDS SUMMARY | ~2019-01-06 | XMS | Encounter Summary ---
Demographics + + + | Address | [address] | | | [place] [address] | + + + | Home Phone [...] | | | | | [place] [id number] | | + + + + + | Thania Mallory | ECON | [address] | | | | | [place] [phone] | | + + + + + | Deidra Weldon | ECON | [address] | | | | | [place] | | | | | [phone] | | + + + + + Care Team Providers + +------+ + | Care Adult Probation Officer Name | Role | Phone | [...] Requested (Drug | | | | [address] [facility] | [facility] | screens) | | | | Rd [place], [place] | [facility] [place] | | | | | [address] | [address] | | | | | [phone] | | | +--------+ + + + [...] Denise | | | | | | [place] | | | | | | [address] | | | | | | [phone] | | | | | | | | +--------+ + + + + documented as of this encounter Visit Diagnoses Not on filedocumented in this encounter"
--- OUTSIDE RECORDS SUMMARY | ~2019-01-06 | XMS | Encounter Summary ---
Demographics + + + | Address | [address] | | | [place] [address] | + + + | Home Phone [...] | | | | | [place] [id number] | | + + + + + | Thania Mallory | ECON | [address] | | | | | [place] [address] | | + + + + + | Deidra Weldon | ECON | [address] | | | | | [place] | | | | | [phone] | | + + + + + Care Team Providers + +------+ + | Care Car Rental Clerk Name | Role | Phone [...] Coordinators [phone] | RN [phone] [facility] | | | | | [address] [facility] | [facility] | | | | | Rd [place], [place] | [place], [place] | | | | | [address] | [address] | | | | | [phone] | | | +--------+ + + + [...] Denise | | | | | | [place], [place] | | | | | | [address] | | | | | | [phone] | | | | | | | | +--------+ + + + + documented as of this encounter Visit Diagnoses Not on filedocumented in this encounter"
--- OUTSIDE RECORDS SUMMARY | ~2019-01-06 | XMS | Clinical Summary ---
Demographics + + + | Address | [address] | | | [place] [address] [...] | Author | [facility] | | | and Josephana | + + + | Organization | [facility] | [...] Providers + +------+ + | Care Health Specialist Name | Role | Phone | [...] Kidney Transplant Waiting List at [facility]: | | 03/07/2014 | + [...] | | Treated by Dr. Joy, pediatric associate. | + + + +---+ | ESRD [...] | but reclotted). 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 | | | | | | ([facility]); ESRD on | | | | | | hemodialysis ([facility]); | | | [...] | | | | | | function ([facility]); | | | | | | Non-compliance; | | | | | | Troponin I above | | | | | | reference range; | | | | | | Anemia in ESRD | | | | | | (end-stage renal | | | | | | disease) ([facility]); At | | | | [...] | | | Gerber Pearson MD | ([facility]); Dilated | | 10/22/ | | | | cardiomyopathy | | 2019 | | | | ([facility]); | | | | | | Non-cardiogenic | | | | | | pulmonary edema; | | | | | | Anemia in ESRD | | | | | | (end-stage renal | | | | | | disease) ([facility]); | | | [...] failure | | | | | | ([facility]); At high risk | | [...] | 2018 | | | | dialysis ([facility]); End | | | | | | stage renal disease | | | | | | ([facility]) | +--------+ + + + + | 10/08/ | Orders Only | | Provider, | Systolic congestive | | 2018 | | | MD Rubén | heart failure ([facility]) | +--------+ + [...] [address] | | | | | | [place] [address] | | | | | | [phone] | | | | | | | [...] Left: | SYNOVIS - | | | [id number] | | 0.8x8cm - [id number]: | | Arm | SYNO | | [...] | | | COVIDIEN | | | [id number] | | | | | -MATT 867 - | | | 3404 / | | | | | COVI | | | | | | | | | | | /[id number] | | | | | | | [...] R?MRN: | | | | | | [id number] | | | [id number] | | | riteri | | | [...] | | | St. | | | [place] | | | y | | | [...] | | | St. | | | [place] | | | y | | | [...] | | | St. | | | [place] | | | y | | | [...] | | | St | | | [place] | | | y | | | [...] St | | | | | | [place] | | | y | | | [...] | | | St. | | | [place] | | | y | | | [...] | | | St. | | | [place] | | | y H. | | [...] | | | St. | | | [place] | | | y H. | | [...] | | | St. | | | [place] | | | y H. | | [...] | | | St. | | | [place] | | | y H. | | [...] | | | St. | | | [place] | | | y H. | | [...] | | | St. | | | [place] | | | y H. | | [...] | | | St. | | | [place] | | | y H. | | [...] | | | MD | | | [employer] P[employer] Trap | | | al | | | [...] | | | 4-070e | | | [id number] | | | 2b | | | [...] Performed At | + + + | Billei Gupta MD 12/14/2018 9:54 [facility] | [facility] Hemo[facility]Dialysis Procedure [...] QB 450 AP | | | -[address] 170 Constitutional: pt appears without | [...] recent of 4 results within the ti ca period is included. + + +--- + [...] | | | | | | at [facility], [address] | | | | | | [facility], | | | | | | [place] [address] | | | | | |Testing performed at [facility], [address] [place] [address] | | | | | | | | | | + + +--- + + + + + | Specimen | + + | Blood | + + + + + + + | Performing | Address | City/State/Zipcode | Phone Number | | Organization | | | | + + + + + | [facility] | [address] | [place] [address] | [phone] | + + + + + Basic [...] | | | | | performed at [facility], [address] | | | | | | [facility], | | | | | | [place] [address] | | | | + + + + + + + + | Specimen | + + | Blood | + + + + + + + | Performing | Address | City/State/Zipcode | Phone Number | | Organization | | | | + + + + + | [facility] | [address] | [place] [address] | [phone] | + + + + + XR [...] Special | Testing performed at | | [facility] | | | Requests | [facility];[address] | | LABORATORY | | | | [address] [address] | | | | + + + + + + | RESULT | NO GROWTH 6 DAYS | | [facility] | | | | | | LABORATORY | | + + + + + + | RESULT | Testing performed at | | [facility] | | | | [facility], [address] | | LABORATORY | | | | [place] | | | | | | [id number]: Testing | | | | | | performed at [facility], [address] | | | | | | [place] [place] | | | | | | [address] | | | | + + + + + + + + | Specimen | + + | Blood | + + + + + + + | Performing | Address | City/State/Zipcode | Phone Number | | Organization | | | | + + + + + | [facility] | [address] | [place] [address] | [phone] | + + + + + CBC [...] [facility] | | | | performed at [facility], [address] | | LABORATORY | | | | [address] [place], | | | | | | [place] [address] | | | | + + + + + + + + | Specimen | + + | Blood | + + + + + + + | Performing | Address | City/State/Zipcode | Phone Number | | Organization | | | | + + + + + | [facility] | [address] | [place] [address] | [phone] | + + + + + C-Reactive Protein (12/12/2018 5:02 PDT) + + + + + + | Component | Value | Ref Range | Performed | Pathologist | | | | | At | Signature | + + + + + + | CRP | 8.6 (H)Comment: Testing | <0.5 mg/dL | [facility] | | | | performed at [facility], [address] | | LABORATORY | | | | [address] [place], | | | | | | [place] [address] | | | | + + + + + + + + | Specimen | + + | Blood | + + + + + + + | Performing | Address | City/State/Zipcode | Phone Number | | Organization | | | | + + + + + | [facility] | [address] | [place] [address] | [phone] | + + + + + Influenza [...] | | performed at [facility] | | | | | | [address];[place] | | | | | | [address] | | | | + + + + + + + + | Specimen | + + | | + + + + + + + | Performing | Address | City/State/Zipcode | Phone Number | | Organization | | | | + + + + + | [facility] | [address] | [place] [address] | [phone] | + + + + + FLU SWAB COLLECTION (12/11/2018 15:46 PDT) + + + + + + | Component | Value | Ref Range | Performed | Pathologist | | | | | At | Signature | + + + + + + | Collection | SPECIMEN RECEIVED IN | | [facility] | | | | LABComment: Testing | | LABORATORY | | | | performed at [facility];[address];[place], [place] | | | | | | [address] | | | | + + + + + + + + | Specimen | + + | Tissue | + + + + + + + | Performing | Address | City/State/Zipcode | Phone Number | | Organization | | | | + + + + + | [facility] | [address] | [place] [address] | [phone] | + + + + + POC Glucose (12/11/2018 8:31 PDT) + + + + + + | Component | Value | Ref Range | Performed | Pathologist | | | | | At | Signature | + + + + + + | Glucose, | 84Comment: Testing | 65 - 99 mg/dL | [facility] | | | POC | performed at [facility];[address] | | LABORATORY | | | | [address];[place], [place] | | | | | | [address] | | | | + + + + + + + + | Specimen | + + | | + + + + + + + | Performing | Address | City/State/Zipcode | Phone Number | | Organization | | | | + + + + + | [facility] | [address] | [place] [address] | [phone] | + + + + + ECG [...] | | | | | ONLY, -COMPUTER (441), | | | | | | medical [...] | | performed at [facility];[address] | | LABORATORY | | | | [address];[place], [place] | | | | | | [address] | | | | + + + + + + + + | Specimen | + + | Blood | + + + + + + + | Performing | Address | City/State/Zipcode | Phone Number | | Organization | | | | + + + + + | [facility] | [address] | [place] [address] | [phone] | + + + + + CT [...] | | performed at [facility] | | | | | | [address];[place], [place] | | | | | | [address] | | | | + + + + + + + + | Specimen | + + | | + + + + + + + | Performing | Address | City/State/Zipcode | Phone Number | | Organization | | | | + + + + + | [facility] | [address] | [place] [address] | [phone] | + + + + + Lactic [...] | | | Serum | performed at [facility];[address] | mmol/L | LABORATORY | | | | [address];[place], [place] | | | | | | [address] | | | | + + + + + + + + | Specimen | + + | Blood | + + + + + + + | Performing | Address | City/State/Zipcode | Phone Number | | Organization | | | | + + + + + | [facility] | [address] | [place] [address] | [phone] | + + + + + Troponin [...] at | | | | | | [facility];[address] | | [address];[place] [address] | | | | + + + + + + + + | Specimen | + + | Blood | + + + + + + + | Performing | Address | City/State/Zipcode | Phone Number | | Organization | | | | + + + + + | [facility] | [address] | [place] [address] | [phone] | + + + + + Protime [...] | | performed at [facility];[address] | | | | | | [address];[place] | | | | | | [address] | | | | + + + + + + + + | Specimen | + + | Blood | + + + + + + + | Performing | Address | City/State/Zipcode | Phone Number | | Organization | | | | + + + + + | [facility] | [address] | [place] [address] | [phone] | + + + + + Phosphorus [...] [facility] | | | | performed at [facility];[address] | | LABORATORY | | | | [address];[place], [place] | | | | | | [address] | | | | + + + + + + + + | Specimen | + + | Blood | + + + + + + + | Performing | Address | City/State/Zipcode | Phone Number | | Organization | | | | + + + + + | [facility] | [address] | [place] [address] | [phone] | + + + + + Magnesium [...] | 1.7 - 2.4 mg/dL | [facility] | | | | performed at [facility];[address] | | LABORATORY | | | | [address];[place], [place] | | | | | | [address] | | | | + + + + + + + + | Specimen | + + | Blood | + + + + + + + | Performing | Address | City/State/Zipcode | Phone Number | | Organization | | | | + + + + + | [facility] | [address] | [place] [address] | [phone] | + + + + + Comprehensive [...] | | performed at [facility] | | | | | | [facility];[place], [place] | | | | | | [address] | | | | + + + + + + + + | Specimen | + + | Blood | + + + + + + + | Performing | Address | City/State/Zipcode | Phone Number | | Organization | | | | + + + + + | [facility] | [address] | [place] [address] | [phone] | + + + + + HEMODIALYSIS (11/09/2018 9:34 PDT) + + + | Narrative | Performed At | + + + | Billie Gupta MD 11/09/2018 9:34 [facility] | | | [facility] [...] | | . 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 | | | Constitutional: pt appears [...] | | LABORATORY | | | | Blvd;[place] [address] | | | | + + + + + + | Gram Stain | NO CELLS OR ORGANISMS | | [facility] | | | Result | SEEN | | LABORATORY | | + + + + + + | RESULT | NO GROWTH 4 DAYS | | [facility] | | | | | | LABORATORY | | + + + + + + | RESULT | Testing performed at | | [facility] | | | | [facility], [address] [facility] | | LABORATORY | | | | [place] | | | | | | [id number]: Testing | | | | | | performed at [facility], [address] | | | | | | [address] [place] | | | | | | [address] | | | | + + + + + + + + | Specimen | + + | Body Fluid | + + + + + + + | Performing | Address | City/State/Zipcode | Phone Number | | Organization | | | | + + + + + | [facility] | [address] | [place] [address] | [phone] | + + + + + Cell [...] + + + | BF RBC | <16113 | /mm3 | [facility] | | | [...] | | | Counted | performed at [facility] | | LABORATORY | | | | [address];[place], [place] | | | | | | [address] | | | | + + + + + + + + | Specimen | + + | Body Fluid | + + + + + + + | Performing | Address | City/State/Zipcode | Phone Number | | Organization | | | | + + + + + | [facility] | [address] | [place] [address] | [phone] | + + + + + Protein, Body Fluid (11/07/2018 15:15 PDT) + + + + + + | Component | Value | Ref Range | Performed | Pathologist | | | | | At | Signature | + + + + + + | Protein, BF | 3.4Comment: This is not | g/dL | [facility] | | | | a sheet rock hanger validated | | LABORATORY | | | | sample type for this | | | | | | method. No | | | | | | referenceranges have | | | | | | been established.Testing | | | | | | performed at [facility], [address] | | | | | [address] [facility], | | | | | | [place] [address] | | | | + + + + + + | SOURCE | PLEURAL FLUIDComment: | | [facility] | | | | Testing performed at | | LABORATORY | | | | [facility];[address] | | | | | [address];[place] [address] | | | | + + + + + + + + | Specimen | + + | Body Fluid | + + + + + + + | Performing | Address | City/State/Zipcode | Phone Number | | Organization | | | | + + + + + | [facility] | [address] [facility] | [place] [address] | [phone] | + + + + + Lactate dehydrogenase, body fluid (11/07/2018 15:15 PDT) + + + + + + | Component | Value | Ref Range | Performed | Pathologist | | | | | At | Signature | + + + + + + | LDH, BODY | 102Comment: This is not | U/L | [facility] | | | FLUID | a sheet rock hanger validated | | LABORATORY | | | | sample type for this | | | | | | method. No | | | | | | referenceranges have | | | | | | been established.Testing | | | | | | performed at [facility], [address] | | | | | [address] [facility], | | | | | | [place] [address] | | | | + + + + + + + + | Specimen | + + | Body Fluid | + + + + + + + | Performing | Address | City/State/Zipcode | Phone Number | | Organization | | | | + + + + + | [facility] | [address] | [place] [address] | [phone] | + + + + + Glucose, Body Fluid (11/07/2018 15:15 PDT) + + + + + + | Component | Value | Ref Range | Performed | Pathologist | | | | | At | Signature | + + + + + + | Glucose | 96Comment: This is not a | mg/dL | [facility] | | | Fluid | sheet rock hanger validated | | LABORATORY | | | | sample type for this | | | | | | method. No | | | | | | referenceranges have | | | | | | been established.Testing | | | | | | performed at [facility], [address] | | | [address], | | | | | | [place] [address] | | | | + + + + + + | SOURCE | PLEURAL FLUIDComment: | | [facility] | | | | Testing performed at | | LABORATORY | | | | [facility];[address] | | | | | | [address];[place] [address] | | | | + + + + + + + + | Specimen | + + | Body Fluid | + + + + + + + | Performing | Address | City/State/Zipcode | Phone Number | | Organization | | | | + + + + + | [facility] | [address] | [place] [address] | [phone] | + + + + + Amylase, Body Fluid (11/07/2018 15:15 PDT) + + + + + + | Component | Value | Ref Range | Performed | Pathologist | | | | | At | Signature | + + + + + + | AMYLASE | 46Comment: This is not a | U/L | [facility] | | | FLUID | sheet rock hanger validated | | LABORATORY | | | | sample type for this | | | | | | method. No | | | | | | referenceranges have | | | | | | been established.Testing | | | | | | performed at [facility], [address] | | | | | [address] [facility], | | | | | | [place] [address] | | | | + + + + + + + + | Specimen | + + | Body Fluid | + + + + + + + | Performing | Address | City/State/Zipcode | Phone Number | | Organization | | | | + + + + + | [facility] | [address] | [place] [address] | [phone] | + + + + + Albumin, Body Fluid (11/07/2018 15:15 PDT) + + + + + + | Component | Value | Ref Range | Performed | Pathologist | | | | | At | Signature | + + + + + + | Albumin, | 2.0Comment: This is not | g/dL | [facility] | | | Fluid | a sheet rock hanger validated | | LABORATORY | | | | sample type for this | | | | | | method. No | | | | | | referenceranges have | | | | | | been established.Testing | | | | | | performed at [facility], [address] | | | | [address], | | | | | | [place] [address] | | | | + + + + + + + + | Specimen | + + | Body Fluid | + + + + + + + | Performing | Address | City/State/Zipcode | Phone Number | | Organization | | | | + + + + + | [facility] | [address] | [place] [address] | [phone] | + + + + + Medical Cytology (11/07/2018 15:15 PDT) + + | Specimen | + + | Body Fluid | + + + + + | Narrative | Performed At | + + + | ORDERING | [facility] | | PHYSICIAN:Darell Kowalski MD PATIENT NAME:DARA LOUISE | [place] | | RAYEGENDER: Alysia : 1995 SPECIMEN(S): [...] | | | preparation was performed by [facility], [address] [place] [address] | | | [place] [address] (Parts Cataloguer: Matt Claudio D.O.; | | | CLIA#: [id number]).Professional interpretation was performed by | | | [facility], [address], | | | [place] [address] (Parts Cataloguer: Daniel Larson M.D.; | | | CLIA#: [id number]).6 Diagnostician: Enrrique Nichols | | | CT([facility])CytotechnologistDiagnostician: Daniel Larson | | | MDPathologistElectronically Signed 11/13/2018 | | |DESCRIPTION: | | |The preparations contain mesothelial cells, rare inflammatory cells, and acellular proteina ceous material. Atypical cytologic findings are not encountered. | | | | | |SPECIMEN ADEQUACY: | | |Satisfactory for Evaluation | | | | | |PERFORMING LABORATORY: | | |Technical preparation was performed by [facility], [address] [place] [address] (Parts Cataloguer: Matt Claudio D.O.; CLIA#: [id number]). | | |Professional interpretation was performed by [facility], [facility], [address] [place] [id number] (Parts Cataloguer: Daniel Larson M.D.; CLIA# : [id number]).6 | | | | | |Diagnostician: Enrrique BROOKS([facility]) | | |Customer Care Coordinator | | |Diagnostician: Daniel Larson MD | [...] | 150 - 400 K/uL | [facility] | | | Count | performed at [facility], [address] | | LABORATORY | | | | [address], | | | | | | [place] [address] | | | | + + + + + + + + | Specimen | + + | Blood | + + + + + + + | Performing | Address | City/State/Zipcode | Phone Number | | Organization | | | | + + + + + | [facility] | [address] | [place] [address] | [phone] | + + + + + Lactate Dehydrogenase (11/07/2018 4:03 PDT) + + + + + + | Component | Value | Ref Range | Performed | Pathologist | | | | | At | Signature | + + + + + + | LDH TOTAL | 202Comment: Testing | 120 - 246 U/L | [facility] | | | | performed at [facility];[address] | | LABORATORY | | | | [address];[place] | | | | | | [address] | | | | + + + + + + + + | Specimen | + + | Blood | + + + + + + + | Performing | Address | City/State/Zipcode | Phone Number | | Organization | | | | + + + + + | [facility] | [address] | [place] [address] | [phone] | + + + + + ECHO [...] CHEST 1 VIEW (10/17/2018); CHEST TWO VIEWS [id number] | | | (10/17/2018); FINDINGS: Compared to [...] VIEW | | (10/17/2018); CHEST TWO VIEWS [id number] (10/17/2018); | | FINDINGS: | | Compared [...] | | | | | | at [facility], [address] | | | | | | [place], | | | | | | [place] [address] | | | | | |Testing performed at [facility], [address] [facility], [place] [address] | | | | | | | [...] | | performed at [facility];[address] | | LAB | | | | [address];[place], [place] | | | | | | [address] | | | | + + + [...] at | | | | | | [facility];[address] [place] [address] | | | | | | Blvd;[place] [address] | | | | + + + [...] | | | | [facility];[address] | | | | | | [address];[place] [address] | | | | + + + [...] +--------+ +---------+--------+ | MEDICARE | MEDICA | [id number] | 05/05/19 | [phone] | | Medica | | | RE | | 13-Pre | 5 | | re | | | PART A | | sent | | | | | | AND B | | | | | | + +--------+ +--------+ +---------+--------+ | MEDICARE | MEDICA | [id number] | 05/05/19 | [phone] | | Medica | | | RE | | 13-Pre | 5 | | re | | | PART A | | sent | | | | | | AND B | | | | | | + +--------+ +--------+ +---------+--------+ | [employer]AN | MODA | [id number] | | [phone] | | Medica | | MEDICAID HMO | HEALTH | | 019-Pr | 1 | | id | | | MDCD | | esent | | | | | | HMO OR | | | | | | + +--------+ +--------+ +---------+--------+ | [employer] | MODA | [id number] | | [phone] | | Medica | | MEDICAID HMO [...] | | 1994 | [phone] | [address] | | | [place] | | | 2 (Home) | [address] | + +--------+ +--------+ + + | Dara Louise | Person | Self | [birth year] | [address] | | | al/Fam | | 1994 | [phone] | [address] | | | [place] | | | 2 (Home) | [address] | + +--------+ +--------+ + + | Cory Louise | Person | Father [birth year] | [address] | | | al/Fam | | 1971 | [phone] | [place] [address] | | | [place] | | | 9 (Home) | | + +--------+ +--------+ + + Advance Directives Patient has advance care planning documents, and code status on file. For more information, please contact:[facility] [place] [facility] [address] + + + + + | Code [...]
--- OUTSIDE RECORDS SUMMARY | ~2019-01-06 | XMS | Encounter Summary ---
Demographics + + + | Address | [address] | | | [place] [address] | + + + | Home Phone [...] | | | | | [place] [address] | | + + + + + | Thania Mallory | ECON | [address] | | | | | [place] [address] | | + + + + + | Deidra Weldon | ECON | [address] | | | | | [place] | | | | | [address] | | + + + + + Care Team Providers + +------+ + | Care Sales And Catering Coordinator Name | Role | Phone | [...] Denise | | | | | | [place], [place] | | | | | | [address] | | | | | | [phone] | | | | | | | | +--------+ + + + + documented as of this encounter Visit Diagnoses Not on filedocumented in this encounter"
--- OUTSIDE RECORDS SUMMARY | ~2019-01-06 | XMS | Encounter Summary ---
Demographics + + + | Address | [address] | | | [place] [address] | + + + | Home Phone [...] | | | | | [place] [id number] | | + + + + + | Thania Mallory | ECON | [address] | | | | | [place] [phone] | | + + + + + | Deidra Weldon | ECON | [address] | | | | | [place] | | | | | [address] | | + + + + + Care Team Providers + +------+ + | Care Power Brake Operator Name | Role | Phone [...] | | | | ANNALISA [facility] | [facility] | | | | | [address] [place], [place] | [place], [place] | | | | | [address] | [address] | | | | | [phone] | | | +--------+ + + + [...] Denise | | | | | | [place], [place] | | | | | | [address] | | | | | | [phone] | | | | | | | | +--------+ + + + + documented as of this encounter Visit Diagnoses Not on filedocumented in this encounter"
--- OUTSIDE RECORDS SUMMARY | ~2019-01-06 | XMS | Encounter Summary ---
Demographics + + + | Address | [address] | | | [place] [address] | + + + | Home Phone [...] | | | | | [place] [address] | | + + + + + | Thania Mallory | ECON | [address] | | | | | [place] [address] | | + + + + + | Deidra Weldon | ECON | [address] | | | | | [place] | | | | | [address] | | + + + + + Care Team Providers + +------+ + | Care Engraver Ornamental Design Name | Role | Phone | [...] date) | | | | ANNALISA [facility] | [facility] | | | | | [address] [place], [place] | [place], [place] | | | | | [address] | [address] | | | | | [phone] | | | +--------+ + + + [...] [place] | | | | | | [address] | | | | | | [phone] | | | | | | | | +--------+ + + + + documented as of this encounter Visit Diagnoses Not on filedocumented in this encounter"
--- OUTSIDE RECORDS SUMMARY | ~2019-01-06 | XMS | Encounter Summary ---
Demographics + + + | Address | [address] | | | [place] [address] | + + + | Home Phone [...] | Author | [facility] | | | and Josephana | + + + | Organization | [facility] | [...] Providers + +------+ + | Care Aeronautical Engineer Name | Role | Phone | [...] + + | 12/10/ | Hospital | [facility] | Rayray Powers MD | Sepsis, due to | | 2019 - | Encounter | [facility] | [address] | unspecified | | | | CARE FLOOR [address] | [place], [place] | organism, | | 12/14/ | | [address] | [address] | unspecified whether | | 2019 | | [place], [place] | [phone] | acute organ | | | | [address] | | dysfunction present | | | | [phone] | Lee Harris MD | ([facility]) (Primary Dx); | | | | | [address] | Pneumonia of right | | | | | [place] [address] | lower lobe due to | | | | | [phone] | infectious organism | | | | | | ([facility]); Hypoxia; | | | | | Jw Neri, DO [address] | Hypervolemia, | | | | | [address] | unspecified | | | | | [place] [address] | hypervolemia type; | | | | | [phone] | ESRD on dialysis | | | | | | ([facility]); Hyperkalemia; | | | | | | Acute on chronic | | | | | | respiratory failure | | | | | | with hypoxia and | | | | | | hypercapnia ([facility]); | | | | | | Acute respiratory | | | | | | failure with hypoxia | | | | | | ([facility]); Anemia in | | | | | | ESRD (end-stage | | | | | | renal disease) | | | | | | ([facility]); At high risk | | | | | | for electrolyte | | | | | | imbalance; Awaiting | | | | | | organ transplant | | | | | | status; 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 | | | | | | failure ([facility]); | | | | | | Chronic right-sided | | | | | | heart failure ([facility]); | | | | | | 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 [facility] Service: Hospitalist Physician Discharge Summary Patient [...] recent travel, drug or alcohol abuse, or MARSHLAL Hospital Course: Patient was admitted to the [...] to Gram-positive bacteria 12/12/2018 Clotted dialysis access ([facility]) 2014 Congestive heart failure (HCC) ESRD (end stage renal disease) ([facility]) HSP (Henoch-Schonlein purpura) nephritis ([facility]) 1988 Hypertension Pericardial effusion without cardiac tamponade 11/07/2018 Past Surgical History: Procedure Laterality Date ABDOMEN SURGERY AV FISTULA REPAIR 02/24/2014 LEFT Radical Cephalic Fistula Creation; Laterality: Left; Surgeon: Blake Chavarria MD ; Location: [facility] MAIN OR AV FISTULA REPAIR Left 03/07/2014 Procedure: AV FISTULA - GRAFT REPAIR/REVISION; Surgeon: Rik Simon MD; Location: [facility] OR; Service: Vascular; Laterality: Left; biopsy [...] - SUPERFICIALIZATION; Surgeon: Emanuel Simon MD; Location: [facility] OR; Service: Vascular; Laterality: Left; OTHER SURGICAL HISTORY Left 04/08/2014 AV FISTULA PLACEMENT - Procedure: AV FISTULA; Surgeon: Rik Simon MD; Location: [facility]; Service: Vascular; Laterality: Left; cephalic OTHER SURGICAL HISTORY Left 03/07/2014 DECLOT GRAFT - Procedure: GRAFT - DECLOT; Surgeon: Rik Simon MD; Location: [facility] ; Service: Vascular; Laterality: Left; peritoneal catheter [...] hours. No results for input(s): PHART, PO2ART, TSQ1ASU, R9PSJRAI, BEART in the last 168 hours. No results for input(s): APTT, INR, PTT in the last 168 hours. No results for input(s): TSH in the last 168 hours. Invalid input(s): T3FREE, FREET4 No results for input(s): TROPONINT in the last 168 hours. Invalid input(s): CKTOTAL, TROPONINI, CKMBINDEX Disposition: home No discharge procedures on file. Follow up: Jonathan Alonso MD [address] [facility] [place] [address] Schedule an appointment as soon as possible for a visit hospital follow up Jorje Camp, DO [address], [address] [place] [address] Schedule an appointment as soon as possible [...] sent through Care Everywhere.Bacteremia, Leti pected (Adult) (Paraguayan)documented in this encounter Medications at Time of [...] | | | | | renal disease) ([facility]) | protocol | | | [...] might be diff erent from the original. [facility] Service: Infectious Diseases Progress Note Hospital [...] Procedure Component Value Units Date/Time Culture, Blood [[id number]] Collected: 12/12/18 1943 Order Status: Canceled Lab Status: No result Specimen: Peripheral Blood Culture, Body Fluid Sterile [[id number]] Order Status: No result Lab Status: No result Specimen: Body Fluid from Pleural Fluid, Right Culture, Blood [[id number]] Collected: 12/12/18 0502 Order Status: Completed Lab Status: Preliminary result Updated: 12/13/18 1324 Specimen: Peripheral Blood Special Requests RWRIST Special Requests Testing performed at [facility];[address] [place] [address] RESULT NO GROWTH AT THIS TIME RESULT Testing performed at [facility], [address] [place] [address] Comment: Testing performed at [facility], [address] [place] [address] Influenza A and B RNA, NAAT [[id number]] Collected: 12/11/18 1556 Order Status: Completed Lab Status: Final result Updated: 12/11/18 1619 Influenza A NEGATIVE Influenza B NEGATIVE Comment: Testing performed by Molecular Methodology Testing performed at [facility];[address] [place] [address] 9[address]16 Flu Swab Collection [[id number]] Collected: 12/11/18 1546 Order Status: Completed Lab Status: Final result Updated: 12/11/18 1549 Specimen: Tissue from Nasopharynx Collection SPECIMEN RECEIVED IN LAB Comment: Testing performed at [facility];[address] [place] [address] Culture, Blood [[id number]] Collected: 12/11/18 0615 Order Status: Completed Lab Status: Preliminary result Updated: 12/12/18 1134 Specimen: Peripheral Blood Special Requests RAC Special Requests Testing performed at [facility];[address] [place] [address] RESULT NO GROWTH AT THIS TIME RESULT Testing performed at [facility], [address] [place] [address] Comment: Testing performed at [facility], [address] [place] [address] Culture, Blood [[id number]] (Abnormal) Collected: 12/10/18 2343 Order Status: Completed Lab Status: Final result Updated: 12/13/18 1009 Specimen: Blood from Line Gram Stain Result -- GRAM POSITIVE COCCI IN CLUSTERS SEEN IN AEROBIC BOTTLE SEEN IN ANAEROBIC BOTTLE Gram Stain Result -- SMEAR RESULTS CALLED TO AND READ BACK BY: Brigitte CARTER 6RDerick @ 9057 12/11/18 CDS RESULT STAPHYLOCOCCUS SPECIES, COAGULASE NEGATIVE RESULT GROWTH IN TWO OF TWO BOTTLES RESULT -- TIME TO DETECTION: 0.69 DAYS RESULT POSSIBLE CONTAMINANT, CLINICAL CORRELATION REQUIRED. RESULT Testing performed at [facility], [address] [place] [address] Comment: Testing performed at [facility], [address] [place] [address] Microbiology Results (72 hrs) Procedure Component Value Units Date/Time Culture, Blood [[id number]] Collected: 12/12/18 0502 Order Status: Completed Lab Status: Preliminary result Updated: 12/13/18 1324 Specimen: Peripheral Blood Special Requests RWRIST Special Requests Testing performed at [facility];[address] [place] [address] RESULT NO GROWTH AT THIS TIME RESULT Testing performed at [facility], [address] [place] [address] Comment: Testing performed at [facility], [address] [place] [address] Influenza A and B RNA, NAAT [[id number]] Collected: 12/11/18 1556 Order Status: Completed Lab Status: Final result Updated: 12/11/18 1619 Influenza A NEGATIVE Influenza B NEGATIVE Comment: Testing performed by Molecular Methodology Testing performed at [facility];[address] [place] [address] 93073 Flu Swab Collection [[id number]] Collected: 12/11/18 1546 Order Status: Completed Lab Status: Final result Updated: 12/11/18 1549 Specimen: Tissue from Nasopharynx Collection SPECIMEN RECEIVED IN LAB Comment: Testing performed at [facility];[address] [place] [address] IMAGING: No new images for review today. [...] was completed later after rounds. Dictation software, [employer] was used which may contain error for [...] Jw Santos, DO - 019 1442 PDT [facility] Service: Hospitalist Progress Note Pt: Dara Weldon AGE/SEX: 23 y.o. female : 1995 ROOM: [facility]/6612-01 TODAY'S DATE: 12/13/2018 Hospital Day: [...] PASP is 73 mmHg - Baseline weight op945ekm. In acute exacerbation - HD per nephrology [...] Reno Saeed MD - 12/13/2018 1132 PDT [facility] Service: Infectious Diseases Progress Note Hospital [...] Procedure Component Value Units Date/Time Culture, Blood [[id number]] Collected: 12/12/18 194 Order Status: Canceled Lab Status: No result Specimen: Peripheral Blood Culture, Body Fluid Sterile [[id number]] Order Status: No result Lab Status: No result Specimen: Body Fluid from Pleural Fluid, Right Culture, Blood [[id number]] Collected: 12/12/18 0502 Order Status: Sent Lab Status: In process Updated: 12/12/18 1005 Specimen: Peripheral Blood Influenza A and B RNA, NAAT [[id number]] Collected: 12/11/18 1556 Order Status: Completed Lab Status: Final result Updated: 12/11/18 1619 Influenza A NEGATIVE Influenza B NEGATIVE Comment: Testing performed by Molecular Methodology Testing performed at [facility];[address] [place] [address] 80333 Flu Swab Collection [[id number]] Collected: 12/11/18 1546 Order Status: Completed Lab Status: Final result Updated: 12/11/18 1549 Specimen: Tissue from Nasopharynx Collection SPECIMEN RECEIVED IN LAB Comment: Testing performed at [facility];[address] [place] [address];[place] [address] Culture, Blood [[id number]] Collected: 12/11/18 0615 Order Status: Completed Lab Status: Preliminary result Updated: 12/12/18 1134 Specimen: Peripheral Blood Special Requests RAC Special Requests Testing performed at [facility];[address] [place] [address] RESULT NO GROWTH AT THIS TIME RESULT Testing performed at [facility], [address] [place] [address] Comment: Testing performed at [facility], [address] [place] [address]179 Culture, Blood [[id number]] (Abnormal) Collected: 12/10/18 2343 Order Status: Completed [...] CLINICAL CORRELATION REQUIRED. RESULT Testing performed at [facility], [address] [place] [address] Comment: Testing performed at [address] [address] Microbiology Results (72 hrs) Procedure Component Value Units Date/Time Culture, Blood [[id number]] Collected: 12/12/18 0502 Order Status: Sent Lab Status: In process Updated: 12/12/18 1005 Specimen: Peripheral Blood Influenza A and B RNA, NAAT [[id number]] Collected: 12/11/18 1556 Order Status: Completed Lab Status: Final result Updated: 12/11/18 1619 Influenza A NEGATIVE Influenza B NEGATIVE Comment: Testing performed by Molecular Methodology Testing performed at [facility];[address] [place] [address]30 Flu Swab Collection [[id number]] Collected: 12/11/18 1546 Order Status: Completed Lab Status: Final result Updated: 12/11/18 1549 Specimen: Tissue from Nasopharynx Collection SPECIMEN RECEIVED IN LAB Comment: Testing performed at [facility];[address] [place] [address] Culture, Blood [[id number]] Collected: 12/11/18 0615 Order Status: Completed Lab Status: Preliminary result Updated: 12/12/18 1134 Specimen: Peripheral Blood Special Requests RAC Special Requests Testing performed at [facility];[address] [place] [address] 67342 RESULT NO GROWTH AT THIS TIME RESULT Testing performed at [address] [address] Comment: Testing performed at [facility], [address] [place] [address] [place] [address] Culture, Blood [[id number]] (Abnormal) Collected: 12/10/18 2343 Order Status: Completed Lab Status: Final result Updated: 12/13/18 1009 Specimen: Blood from Line Gram Stain Result -- GRAM POSITIVE COCCI IN CLUSTERS SEEN IN AEROBIC BOTTLE SEEN IN ANAEROBIC BOTTLE Gram Stain Result -- SMEAR RESULTS CALLED TO AND READ BACK BY: Brigitte CARTER 6RP @ 6775 12/11/18 CDS RESULT STAPHYLOCOCCUS SPECIES, COAGULASE NEGATIVE RESULT GROWTH IN TWO OF TWO BOTTLES RESULT -- TIME TO DETECTION: 0.69 DAYS RESULT POSSIBLE CONTAMINANT, CLINICAL CORRELATION REQUIRED. RESULT Testing performed at [facility], [address] [place] [address] Comment: Testing performed at [facility], [address] [place] [address] IMAGING: No new images for review today. [...] was completed later after rounds. Dictation software, [employer] was used which may contain error for [...] (12/12/18 0827) Vida Whittaker RPH - 11/2018 4549 PDTClinical Pharmacy Note: Vancomycin Day 1 Referring [...] 12/12/2018 13:33 Lee Aguirre MD - 12/12/2018 0800 PDT [facility] Adult Hospitalist Progress Note Hospital Day: [...] Jimenes Ma, MD 8:29 12/12/2018 aylor Mcnair [facility] - 10/2018 1946 PDT Clinical Pharmacy Note: [...] [address] | | | | | | [place] [address] | | | | | | [phone] | | | | | | | [...] R?MRN: | | | | | | [id number] | | | [id number] | | | riteri | | | [...] | | | St. | | | [place] | | | y | | | [...] | | | St. | | | [place] | | | y | | | [...] | | | St. | | | [place] | | | y | | | [...] | | | St | | | [place] | | | y | | | [...] St | | | | | | [place] | | | y | | | [...] | | | St. | | | [place] | | | y | | | [...] | | | St. | | | [place] | | | y H. | | [...] | | | St. | | | [place] | | | y H. | | [...] | | | St. | | | [place] | | | y H. | | [...] | | | St. | | | [place] | | | y H. | | [...] | | | St. | | | [place] | | | y H. | | [...] | | | St. | | | [place] | | | y H. | | [...] | | | St. | | | [place] | | | y H. | | [...] | | | MD | | | Betting Agency Manager | | | al | | [...] | | | [phone] | | | [phone] | | | [phone] | | | [...] | Billie Gupta MD 12/14/2018 9:54 [facility] | | | Medical Center [...] QB 450 AP | | | -200 Vascular Nurse 170 Constitutional: pt appears without | | [...] | | | | | at [facility], [address] | | | | | | [facility], | | | | | | [place] [address] | | | | | |Testing performed at [facility], [address] [facility], [place] [address] | | | | | | | | | | + + +--- + + + + + | Specimen | + + | Blood | + + + + + + + | Performing | Address | City/State/Zipcode | Phone Number | | Organization | | | | + + + + + | [facility] | [address] | [place] [address] | [phone] | + + + + + Basic [...] | 9.4 | 8.5 - 10.5 | [facility] | | | | | mg/dL | LABORATORY | | + + + + + + | Estimated | 7 (L)Comment: GFR <60: | >60 | [facility] | | | GFR | [...] W | | | | | | [facility], | | | | | | [place] [address] | | | | + + + + + + + + | Specimen | + + | Blood | + + + + + + + | Performing | Address | City/State/Zipcode | Phone Number | | Organization | | | | + + + + + | [facility] | [address] | [place] [address] | [phone] | + + + + + XR [...] 11 (L)Comment: GFR <60: | >60 | [facility] | | | GFR | [...] | | | | | | [facility] traceable | | | | | | equation.Testing | | | | | | performed at [facility], [address] | | | | | | [facility], | | | | | | [place] [address] | | | | + + + + + + + + | Specimen | + + | Blood | + + + + + + + | Performing | Address | City/State/Zipcode | Phone Number | | Organization | | | | + + + + + | [facility] | [address] | [place] [address] | [phone] | + + + + + [place] [...] 8.6 (H)Comment: Testing | <0.5 mg/dL | [facility] | | | | performed at [facility], [address] | | LABORATORY | | | | [address], | | | | | | [place] [address] | | | | + + + + + + + + | Specimen | + + | Blood | + + + + + + + | Performing | Address | City/State/Zipcode | Phone Number | | Organization | | | | + + + + + | [facility] | [address] | [place] [address] | [phone] | + + + + + Culture, [...] LABORATORY | | | | Blvd;[place] [address] | | | | + + + + + + | RESULT | NO GROWTH 6 DAYS | | [facility] | | | | | | LABORATORY | | + + + + + + | RESULT | Testing performed at | | [facility] | | | | [facility], [address] | | LABORATORY | | | | [place] | | | | | | [id number]: Testing | | | | | | performed at [facility], [address] | | | | | [address], [place] | | | | | | [address] | | | | + + + + + + + + | Specimen | + + | Blood | + + + + + + + | Performing | Address | City/State/Zipcode | Phone Number | | Organization | | | | + + + + + | [facility] | [address] | [place] [address] | [phone] | + + + + + CBC [...] [facility] | | | | performed at [facility], [address] | | LABORATORY | | | | [facility], | | | | | | [place] [address] | | | | + + + + + + + + | Specimen | + + | Blood | + + + + + + + | Performing | Address | City/State/Zipcode | Phone Number | | Organization | | | | + + + + + | [facility] | [address] | [place] [address] | [phone] | + + + + + Basic [...] 7 (L)Comment: GFR <60: | >60 | [facility] | | | GFR | [...] | | | | | | MDRD [facility] traceable | | | | | | equation.Testing | | | | | | performed at [facility], [address] | | | | | | [facility], | | | | | | [place] [address] | | | | + + + + + + + + | Specimen | + + | Blood | + + + + + + + | Performing | Address | City/State/Zipcode | Phone Number | | Organization | | | | + + + + + | [facility] | [address] | [place] [address] | [phone] | + + + + + Basic [...] 9 (L)Comment: GFR <60: | >60 | [facility] | | | GFR | [...] | | | | | | [facility] traceable | | | | | | equation.Testing | | | | | | performed at [facility] | | | | | | [facility];[place], [place] | | | | | | [address] | | | | + + + + + + + + | Specimen | + + | Blood | + + + + + + + | Performing | Address | City/State/Zipcode | Phone Number | | Organization | | | | + + + + + | [facility] | [address] | [place] [address] | [phone] | + + + + + Influenza [...] | | performed at [facility];[address];[place], [place] | | | | | | [address] | | | | + + + + + + + + | Specimen | + + | | + + + + + + + | Performing | Address | City/State/Zipcode | Phone Number | | Organization | | | | + + + + + | [facility] | [address] | [place] [address] | [phone] | + + + + + FLU SWAB COLLECTION (12/11/2018 15:46 PDT) + + + + + + | Component | Value | Ref Range | Performed | Pathologist | | | | | At | Signature | + + + + + + | Collection | SPECIMEN RECEIVED IN | | [facility] | | | | LABComment: Testing | | LABORATORY | | | | performed at [facility];[address] | | | | | | [address];[place] | | | | | | [address] | | | | + + + + + + + + | Specimen | + + | Tissue | + + + + + + + | Performing | Address | City/State/Zipcode | Phone Number | | Organization | | | | + + + + + | [facility] | [address] | [place] [address] | [phone] | + + + + + POC Glucose (12/11/2018 8:31 PDT) + + + + + + | Component | Value | Ref Range | Performed | Pathologist | | | | | At | Signature | + + + + + + | Glucose, | 84Comment: Testing | 65 - 99 mg/dL | [facility] | | | POC | performed at [facility];[address] | | LABORATORY | | | | [address];[place], [place] | | | | | | [address] | | | | + + + + + + + + | Specimen | + + | | + + + + + + + | Performing | Address | City/State/Zipcode | Phone Number | | Organization | | | | + + + + + | [facility] | [address] | [place] [address] | [phone] | + + + + + ECG [...] (500), | | | | | | science editor Daniela Luciano | | | | [...] [facility] | | | | performed at [facility];[address] | | LABORATORY | | | | [address];[place] | | | | | | [address] | | | | + + + + + + + + | Specimen | + + | Blood | + + + + + + + | Performing | Address | City/State/Zipcode | Phone Number | | Organization | | | | + + + + + | [facility] | [address] | [place] [address] | [phone] | + + + + + Basic [...] LABORATORY | | | | [place] [id number] BY | | | | [...] | | | | | | [facility] traceable | | | | | | equation.Testing | | | | | | performed at [facility];[address] | | | | | | [facility];[place], [place] | | | | | | [address] | | | | + + + + + + + + | Specimen | + + | Blood | + + + + + + + | Performing | Address | City/State/Zipcode | Phone Number | | Organization | | | | + + + + + | [facility] | [address] | [place] [address] | [phone] | + + + + + Culture, [...] Special | Testing performed at | | [facility] | | | Requests | [facility];[address] | | LABORATORY | | | | [address];[place] [address] | | | | + + + + + + | RESULT | NO GROWTH 6 DAYS | | [facility] | | | | | | LABORATORY | | + + + + + + | RESULT | Testing performed at | | [facility] | | | | [facility], [address] | | LABORATORY | | | | [place] | | | | | | [address]Lyzsqjn: Testing | | | | | | performed at [facility], [address] | | | | | | [place] [place] | | | | | | [address] | | | | + + + + + + + + | Specimen | + + | Blood | + + + + + + + | Performing | Address | City/State/Zipcode | Phone Number | | Organization | | | | + + + + + | [facility] | [address] | [place] [address] | [phone] | + + + + + CT [...] LABORATORY | | | | performed at [facility];[address];[place] | | | | | | [address] | | | | + + + + + + + + | Specimen | + + | | + + + + + + + | Performing | Address | City/State/Zipcode | Phone Number | | Organization | | | | + + + + + | [facility] | [address] | [place] [address] | [phone] | + + + + + Lactic Acid (12/11/2018 1:04 PDT) + + + + + + | Component | Value | Ref Range | Performed | Pathologist | | | | | At | Signature | + + + + + + | Lactate, | 1.2Comment: Testing | 0.4 - 2.0 | [facility] | | | Serum | performed at [facility];[address] | mmol/L | LABORATORY | | | | [address];[place] | | | | | | [address] | | | | + + + + + + + + | Specimen | + + | Blood | + + + + + + + | Performing | Address | City/State/Zipcode | Phone Number | | Organization | | | | + + + + + | [facility] | [address] | [place] [address] | [phone] | + + + + + Lactic Acid (12/10/2018 23:44 PDT) + + + + + + | Component | Value | Ref Range | Performed | Pathologist | | | | | At | Signature | + + + + + + | Lactate, | 0.8Comment: Testing | 0.4 - 2.0 | [facility] | | | Serum | performed at [facility];[address] | mmol/L | LABORATORY | | | | [address];[place], [place] | | | | | | [address] | | | | + + + + + + + + | Specimen | + + | Blood | + + + + + + + | Performing | Address | City/State/Zipcode | Phone Number | | Organization | | | | + + + + + | [facility] | [address] | [place] [address] | [phone] | + + + + + Culture, [...] LABORATORY | | | | BY:Brigitte [facility] @ 1855 | | | | | [...] RESULT | Testing performed at | | [facility] | | | | [facility], [address] [facility] | | LABORATORY | | | | [place], [place] | | | | | | [id number]: Testing | | | | | | performed at [facility], [address] | | | | | | [facility], | | | | | | [place] [address] | | | | + + + + + + + + | Specimen | + + | Blood | + + + + + + + | Performing | Address | City/State/Zipcode | Phone Number | | Organization | | | | + + + + + | [facility] | [address] | [place] [address] | [phone] | + + + + + XR [...] | | | | [facility];[address] [facility] | | | | | | [facility];[place] [address] | | | | + + + + + + + + | Specimen | + + | Blood | + + + + + + + | Performing | Address | City/State/Zipcode | Phone Number | | Organization | | | | + + + + + | [facility] | [address] | [place] [address] | [phone] | + + + + + Protime [...] | | performed at [facility];[address] | | | | | | [address];[place], [place] | | | | | | [address] | | | | + + + + + + + + | Specimen | + + | Blood | + + + + + + + | Performing | Address | City/State/Zipcode | Phone Number | | Organization | | | | + + + + + | [facility] | [address] | [place] [address] | [phone] | + + + + + CBC [...] | | | at [facility];[address];[place] [address] | | | | | |NORMAL PLT MORPH | | | | | |Testing performed at [facility];[address] [facility];[place] [address] | | | | | | | | | | + + + + + + + + | Specimen | + + | Blood | + + + + + + + | Performing | Address | City/State/Zipcode | Phone Number | | Organization | | | | + + + + + | [facility] | [address] | [place] [address] | [phone] | + + + + + Phosphorus (12/10/2018 23:02 PDT) + + + + + + | Component | Value | Ref Range | Performed | Pathologist | | | | | At | Signature | + + + + + + | Phosphorus | 8.9 (H)Comment: Testing | 2.3 - 4.8 mg/dL | [facility] | | | | performed at [facility];8 | | LABORATORY | | | | [address];[place] | | | | | | [address] | | | | + + + + + + + + | Specimen | + + | Blood | + + + + + + + | Performing | Address | City/State/Zipcode | Phone Number | | Organization | | | | + + + + + | [facility] | [address] | [place] [address] | [phone] | + + + + + Magnesium (12/10/2018 23:02 PDT) + + + + + + | Component | Value | Ref Range | Performed | Pathologist | | | | | At | Signature | + + + + + + | Magnesium | 2.2Comment: Testing | 1.7 - 2.4 mg/dL | [facility] | | | | performed at [facility];[address] | | LABORATORY | | | | [address];[place], [place] | | | | | | [address] | | | | + + + + + + + + | Specimen | + + | Blood | + + + + + + + | Performing | Address | City/State/Zipcode | Phone Number | | Organization | | | | + + + + + | [facility] | [address] | [place] [address] | [phone] | + + + + + Comprehensive [...] 22 | 10 - 65 U/L | [facility] | | | | | | LABORATORY | | + + + + + + | Estimated | 3 (L)Comment: GFR <60: | >60 | [facility] | | | GFR | [...] | | performed at [facility];[address] | | | | | | [facility];[place], [place] | | | | | | [address] | | | | + + + + + + + + | Specimen | + + | Blood | + + + + + + + | Performing | Address | City/State/Zipcode | Phone Number | | Organization | | | | + + + + + | [facility] | [address] | [place] [address] | [phone] | + + + + + ECG [...] | | | | | ONLY, -COMPUTER (721), | | | | | | science editor Daniela Luciano | | | | [...] | | | | Intravenous, ONCE, [facility] 12/13/18 | | PDT | | | [...] - PRN, Hypotension, | | | Starting [facility] 12/11/18 at 0937, | | [...] - PRN, Hypotension, | | | Starting [facility] 12/12/18 at 0734, | | | Treatment [...]
--- OUTSIDE RECORDS SUMMARY | ~2019-01-06 | XMS | Encounter Summary ---
Demographics + + + | Address | [address] | | | [place] [address] | + + + | Home Phone [...] | | | | | [place] [address] | | + + + + + | Thania Mallory | ECON | [address] | | | | | [place] [address] | | + + + + + | Deidra Weldon | ECON | [address] | | | | | [place] | | | | | [address] | | + + + + + Care Team Providers + +------+ + | Care Lift Manager Name | Role | Phone | [...] (psychosocial update | | | | Rd [place], [place] | [place], [place] | from pt's mom) | | | | [address] | [address] | | | | | [phone] | | | +--------+ + + + [...] Denise | | | | | | [place] | | | | | | [address] | | | | | | [phone] | | | | | | | | +--------+ + + + + documented as of this encounter Visit Diagnoses Not on filedocumented in this encounter"
--- OUTSIDE RECORDS SUMMARY | ~2019-01-06 | XMS | Encounter Summary ---
Demographics + + + | Address | [address] | | | [place] [address] | + + + | Home Phone [...] | | | | | [place] [address] | | + + + + + | Thania Mallory | ECON | [address] | | | | | [place] [address] | | + + + + + | Deidra Weldon | ECON | [address] | | | | | [place] | | | | | [address] | | + + + + + Care Team Providers + +------+ + | Care Life Insurance Sales Agent Name | Role | Phone | [...] Transplant | | | | [address] [facility] | [address] | Evaluation | | | | Rd [place], [place] | [place], [place] | (pre-listing | | | | [address] | [address] | pediatric [place] | | | | [phone] | | update) | +--------+ + + [...] 2022 | Encounter | | [address] | | | | | | [place] | | | | | | [address] | | | | | | [phone] | | | | | | | | +--------+ + + + + documented as of this encounter Visit Diagnoses Not on filedocumented in this encounter"
--- OUTSIDE RECORDS SUMMARY | ~2019-01-06 | XMS | Encounter Summary ---
Demographics + + + | Address | [address] | | | [place] [address] | + + + | Home Phone [...] | | | | | [place] [address] | | + + + + + | Thania Mallory | ECON | [address] | | | | | [place] [address] | | + + + + + | Deidra Weldon | ECON | [address] | | | | | [place] | | | | | [address] | | + + + + + Care Team Providers + +------+ + | Care Accounting Policy Consultant Name | Role | Phone | [...] | [address] [facility] | [facility] | | | | | Rd [place], [place] | [place], [place] | | | | | [address] | [address] | | | | | [phone] | | | +--------+ + + + [...] Denise | | | | | | [place], [place] | | | | | | [address] | | | | | | [phone] | | | | | | | | +--------+ + + + + documented as of this encounter Visit Diagnoses Not on filedocumented in this encounter"
--- OUTSIDE RECORDS SUMMARY | ~2019-01-06 | XMS | Encounter Summary ---
Demographics + + + | Address | [address] | | | [place] [address] | + + + | Home Phone [...] | | | | | [place] [address] | | + + + + + | Thania Mallory | ECON | [address] | | | | | [place] [address] | | + + + + + | Deidra Weldon | ECON | [address] | | | | | [place] | | | | | [address] | | + + + + + Care Team Providers + +------+ + | Care Tie Inspector Name | Role | Phone | [...] | | | | | ANNAL[address] [facility] | [facility] | | | | | Rd [place], [place] | [place], [place] | | | | | [address] | [address] | | | | | [phone] | | | +--------+ + + + [...] [place] | | | | | | [address] | | | | | | [phone] | | | | | | | | +--------+ + + + + documented as of this encounter Visit Diagnoses Not on filedocumented in this encounter"
--- OUTSIDE RECORDS SUMMARY | ~2019-01-06 | XMS | Encounter Summary ---
Demographics + + + | Address | [address] | | | [place] [address] | + + + | Home Phone [...] | | | | | [place] [address] | | + + + + + | Thania Mallory | ECON | [address] | | | | | [place] [address] | | + + + + + | Deidra Weldon | ECON | [address] | | | | | [place] | | | | | [address] | | + + + + + Care Team Providers + +------+ + | Care Flask Handler Name | Role | Phone | [...] | Summary | | | | [facility] | [facility] | | | | | Rd [place], [place] | [place] | | | | | [address] | [address] | | | | | [phone] | | | +--------+ + + + [...] [place] | | | | | | [address] | | | | | | [phone] | | | | | | | | +--------+ + + + + documented as of this encounter Visit Diagnoses Not on filedocumented in this encounter"
--- OUTSIDE RECORDS SUMMARY | ~2019-01-06 | XMS | Encounter Summary ---
Demographics + + + | Address | [address] | | | [place] [address] | + + + | Home Phone [...] Author | [facility] | | | and Josephana | + + + | Organization | [facility] [...] Providers + +------+ + | Care Counter Clerk Name | Role | Phone | + +------+ + | Tien Nicholson MD | PCP | | + +------+ + Encounter Details +--------+ + + + + | Date | Type | Department | Care Team | Description | +--------+ + + + + | 10/17/ | Hospital | [facility] | Nikita, | SOB (shortness of | | 2019 - | Encounter | [facility] | MD Naresh [address] | breath); Pleural | | | | CARE FLOOR [address] | effusion on right; | | 10/20/ | | [address] | [place] [address] | ESRD needing | | 2019 | | [place], [place] | [phone] | dialysis ([facility]); End | | | | [address] | | stage renal disease | | | | [phone] | | ([facility]) | +--------+ + + + [...] + + +---------+ + + | B Lvctlsx-B-Dnwrm | Take 1 tablet by | | [...] 10/19/182357 Date of Service: 10/19/182357 Status: Signed Staking Technician: Vira Ford RN (Registered Nurse) No [...] 10/19/181827 Date of Service: 10/19/181826 Status: Signed Staking Technician: Trent Jovel RN (Registered Nurse) Dialysis completed today 2.4L removed. Remains on fluid restriction. Medicated for pain x 2. End of shift review complete. Trent Jovel RN onversio n Transaction, Provider Unknown - 10/19/2018 1536 PDTFormatting of this note might be differ ent from the original. Case Management by DORON Diallo at 10/19/18 1536 Author: DORON Diallo Service: (none) Author Type: Bone Process Operator Filed: 10/19/18 1537 Date of Service: 10/19/18 1536 Status: Signed Staking Technician: DORON Diallo (Bone Process Operator) Discharge planning: Return home when medically ready for discharge. Pt is receiving dialysi s on MWF. Pt is currently on 4L O2, pt may need a home O2 evaluation at discharge. ipul Pabon MD - 10/19/2018 1214 PDT Progress Notes by Antonio Pabon MD at 10/19/18 1214 Author: Antonio Pabon MD Service: Nephrology Author Type: Physician Filed: 10/25/18 7906 Date of Service: 10/19/18 1214 Status: Addendum Staking Technician: Antonio Pabon MD (Physician) Related Notes: Original Note by Antonio Pabon MD (Physician) filed at 10/25/18 9237 [facility] Service: NEPHROLOGY Progress Note Dara Weldon 23 y.o. [id number] female TIEN NICHOLSON 23-year-old female with [...] Simon MD; Location: [facility] IN [place]; Service: Vascular; [...] file Social History Narrative She lives in [facility]. She does not work. [...] ral space is punctured with an 5 South African [employer] centesis catheter. Fluid is aspirated without complication. [...] 1 VIEW (10/17/2018); CHEST TWO V IEWS 92750 (10/17/2018); FINDINGS: Compared to the prior examination [...] MR, severe TR.severe pulmonary hypertens ion Chest n-mik-eaksknnpzqcd with pulmonary edema and large right pleural [...] earlier and charting completed later Dictation software, Lontra, used which may contain error for similar sounding words even af ter review. Personal communication requested for any clarification. inci, MD Gerber - 48 PDT Progress Notes by Gerber Pearson MD at 10/19/1848 Author: Gerber Pearson MD Service: Hospitalist Author Type: Physician Filed: 10/19/18 0753 Date of Service: 10/19/1848 Status: Signed Staking Technician: Gerber Pearson MD (Physician) [facility] Service: Hospitalist Progress Note Hospital Day: LOS: [...] with dyspnea Patient was recently discharged from [facility] on 08/23/2018. For full note, please see discha rge summary from hospitalist. In summary, the patient was admitted for noncardiogenic pulmo nary edema after thoracentesis. At that point, prior to admission, she was seen at the [facility] at [facility] in [place] on 08/21 where she underwent right th [...] BUN 90 on admission -History of a [place] Schnlein purpura -Last hemodialysis approximately 2 weeks [...] 10/19/18733 Date of Service: 10/19/18733 Status: Signed Staking Technician: Vira Ford RN (Registered Nurse) No [...] Author: DORON Diallo Service: (none) Author Type: Bone Process Operator Filed: 10/18/181706 Date of Service: 10/18/181700 Status: Signed Staking Technician: DORON Diallo (Bone Process Operator) Discharge planning: Return home when medically ready for discharge. Fr gela Fernandez MD - 10/18/201846 PDTFormatting of this note might be different from the origina l. Progress Notes by Gerber Pearson MD at 10/18/18745 Author: Gerber Pearson MD Service: Hospitalist Author Type: Physician Filed: 10/18/18 075 Date of Service: 10/18/18745 Status: Signed Staking Technician: Gerber Pearson MD (Physician) [facility] Service: Hospitalist Progress Note Hospital Day: LOS: [...] with dyspnea Patient was recently discharged from [facility] on 08/23/2018. For full note, please see discha rge summary from hospitalist. In summary, the patient was admitted for noncardiogenic pulmo nary edema after thoracentesis. At that point, prior to admission, she was seen at the [facility] department at [facility] in [place] on 08/21 where she underwent right th [...] BUN 90 on admission -History of a [place] Schnlein purpura -Last hemodialysis approximately 2 weeks [...] -Subcu heparin Disposition: Code Status: Full Code Gerbre Pearson MD 10/18/2018 ntonio Pabon MD - 0745 PDT Progress Notes by Antonio Pabon MD at 10/18/18 0711 Author: Antonio Pabon MD Service: Nephrology Author Type: Physician Filed: 10/25/182002 Date of Service: 10/18/18744 Status: Signed Staking Technician: Antonio Pabon MD (Physician) [facility] Service: NEPHROLOGY Progress Note Dara Weldon 23 y.o. [id number]/[id number] female [facility] Day: LOS: 1 day 23-year-old female [...] GRAFT REPAIR/REVISION; Surgeon: Rik Simon MD; Location: [facility] IN OR; Service: Vascular; Laterality: Left; DECLOT GRAFT Left 03/07/2014 Procedure: GRAFT - DECLOT; Surgeon: Rik Simon MD; Location: [facility] OR; Service: Vas cular; Laterality: Left; DIALYSIS FISTULA CREATION N/A 04/08/2014 Procedure: DIALYSIS CATHETER - INSERTION; Surgeon: Rik Simon MD; Location: [facility] OR ; Service: Vascular; Laterality: N/A; tunneled catheter LAPAROSCOPIC PERITONEAL DIALYSIS CATHETER INSERTION x2 LAPAROSCOPIC PERITONEAL DIALYSIS CATHETER INSERTION Right 07/2013 current dialysis access MWF dialysis RENAL BIOPSY Left 2003 SUPERFICIALIZATION OF AV FISTULA Left 06/24/2014 Procedure: AV FISTULA - SUPERFICIALIZATION; Surgeon: Rik Simon MD; Location: [facility] OR; Service: Vascular; Laterality: Left; Prescriptions Prior [...] file Social History Narrative She lives in [facility]. She does not work. [...] QTC Calculation (Bezet) 469 ms Calculated P Eagle 46 degrees Calculated R Eagle 127 degrees Calculated T Eagle 94 degrees Diagnosis Normal sinus rhythm Right [...] MR, severe TR.severe pulmonary hypertens ion Chest q-gcz-vsfxqrcggatr with pulmonary edema and large right pleural [...] earlier and charting completed later Dictation software, Lontra, used which may contain error for similar [...] 10/18/1853 Date of Service: 10/18/18650 Status: Signed Staking Technician: Ronnie Vargas RN (Registered Nurse) Pt alert and oriented X 4. PRN pain med given for back pain. No other acute changes durin g shift. Chart check complete onversio n Transaction, Provider Unknown - 10/17/2018 0948 PDTFormatting of this note might be differ ent from the original. Case Management by DORON Diallo at 10/17/1848 Author: DORON Diallo Service: (none) Author Type: Bone Process Operator Filed: 10/17/1809 Date of Service: 10/17/18947 Status: Signed Staking Technician: DORON Diallo (Bone Process Operator) 10/17/18 0900 Discharge Planning Evaluation Admitting Diagnosis (SOB) Readmission Other (comment) (Last admit 08/20/18) Living Arrangements Alone Support Systems Family members;Friends/neighbors Type of Residence Private residence House type Apartment Independent with ADL's Yes Independent with Mobility Yes Home Care Services No Caregiver after Discharge No Mental Status Oriented Prior functional status (Independent) Power of Director Of Special Education No Resources Financial concerns No Transportation issues No Patient/Family concerns No Prescription Plan Yes Name of Pharmacy ([facility] in [place]) Previous home health equipment No Anticipated Disposition Facility Type Home TAX EXPERT CM met with pt and discussed discharge planning. Pt is a 23 y.o., female admitted for s hortness of breath. Pt resides alone in an apartment at [address] [place] [address]. Pt reported that she has neighbor and friend support. Pt's mother, Thania cheung can be reached at and sister, Saundra can be reached at . Pt reported being independent with ADL's,, IADL's and mobility prior to this admission. Pt denied previous outpatient OT/PT services, home care services and home O2 prior to this admission. Pt reported that [facility] prior to this admission . [...] 10/17/18743 Date of Service: 10/17/18743 Status: Signed Staking Technician: Camilla Moody RPH (Pharmacist) Clinical Pharmacy [...] 10/17/18746 Date of Service: 10/17/18716 Status: Signed Staking Technician: Gerber Pearson MD (Physician) [facility] Service: Hospitalist Progress Note Hospital Day: LOS: [...] with dyspnea Patient was recently discharged from [facility] on 08/23/2018. For full note, please see ketan agudelo summary from hospitalist. In summary, the patient was admitted for noncardiogenic pulmo nary edema after thoracentesis. At that point, prior to admission, she was seen at the [facility] gency department at [facility] in [place] on 08/21 where she underwent right th [...] the case over the phone with patient's electrical instrumentation technician Dr. Mahmood, recommends medi oly management and [...] creatinine 14, BUN 90 -History of a [place] Schnlein purpura -Last hemodialysis approximately 2 weeks [...] [address] | | | | | | [place] [address] | | | | | | [phone] | | | | | | | [...] [address], | | | | | | [place] [address] | | | | + + + [...] CHEST 1 VIEW (10/17/2018); CHEST TWO VIEWS 54120 | | | (10/17/2018); FINDINGS: Compared to [...] VIEW | | (10/17/2018); CHEST TWO VIEWS 20176 (10/17/2018); | | FINDINGS: | | Compared [...] pleural space is punctured with an 5 South African [employer] centesis | | | catheter. Fluid [...] pleural space is punctured with an 5 [place] African [employer]h | | centesis catheter. Fluid is [...] W | | | | | | [facility], | | | | | | [place] [address] | | | | | |Testing performed at [facility], [address], [place] [address] | | | | | | | [...] EXTERNAL | | | | performed at [facility], [address] | | LAB | | | | [address], | | | | | | [place] [address] | | | | + + + [...] | | | | | performed at [facility], [address] | | | | | | [facility], | | | | | | [place] [address] | | | | + + [...] | | | | [facility];[address] [facility] | | | | | | Bl;[place] [address] | | | | + + + [...] | | performed at [facility];8 | | LAB | | | | [address];[place] | | | | | | [address] | | | | + + + [...] | | | | [facility];[address] [facility] | | | | | | [facility];[place] [address] | | | | + + + [...] | | performed at [facility];[address] | | LAB | | | | [facility];[place] | | | | | | [address] | | | | + + + [...] | | performed at [facility];[address] | | | | | | [address];[place], [place] | | | | | | [address] | | | | + + + [...] | | | | [facility];[address] [place] [address] | | | | | | Bl;[place] [address] | | | | + + + [...] | | | | [facility];[address] [facility] | | | | | | [facility];[place] [address] | | | | + + + [...] | | | | [facility];[address] [place] [address] | | | | | | [facility];[place] [address] | | | | + + + [...]
--- OUTSIDE RECORDS SUMMARY | ~2019-01-06 | XMS | Encounter Summary ---
Demographics + + + | Address | [address] | | | [place] [address] | + + + | Home Phone [...] | | | | | [place] [address] | | + + + + + | Thania Mallory | ECON | [address] | | | | | [place] [address] | | + + + + + | Deidra Weldon | ECON | [address] | | | | | [place] | | | | | [address] | | + + + + + Care Team Providers + +------+ + | Care Manager Of Procurement Name | Role | Phone | + [...] | | Nephrology at | MD Emanuel [address] | | | | | [place] | [address] | | | | | [facility] | [place], [place] | | | | | [address] | [address] | | | | | Caro Chan Mailcode: | [phone] | | | | | [address] | | | | | | [place], [place] | | | | | | [address] | | | | | | [phone] | | | +--------+--------+ + + + [...] Denise | | | | | | [place], [place] | | | | | | [address] | | | | | | [phone] | | | | | | | | +--------+ + + + + documented as of this encounter Visit Diagnoses Not on filedocumented in this encounter"
--- OUTSIDE RECORDS SUMMARY | ~2019-01-06 | XMS | Encounter Summary ---
Demographics + + + | Address | [address] | | | [place] [address] | + + + | Home Phone [...] | | | | | [place] [address] | | + + + + + | Thania Mallory | ECON | [address] | | | | | [place] [address] | | + + + + + | Deidra Weldon | ECON | [address] | | | | | [place] | | | | | [address] | | + + + + + Care Team Providers + +------+ + | Care Transfer Car Operator Drier Name | Role | Phone | + [...] | lab/Provider | | | | [place], [place] | [place], [place] | updated) | | | | [address] | [address] | | | | | [phone] | [phone] | | | | | | | [...] Denise | | | | | | [place], [place] | | | | | | [address] | | | | | | [phone] | | | | | | | | +--------+ + + + + documented as of this encounter Visit Diagnoses Not on filedocumented in this encounter"
--- OUTSIDE RECORDS SUMMARY | ~2019-01-06 | XMS | Encounter Summary ---
Demographics + + + | Address | [address] | | | [place] [address] | + + + | Home Phone [...] | | | | | [place] [address] | | + + + + + | Thania Mallory | ECON | [address] | | | | | [place] [address] | | + + + + + | Deidra Weldon | ECON | [address] | | | | | [place] | | | | | [address] | | + + + + + Care Team Providers + +------+ + | Care Bulb Assembler Name | Role | Phone | [...] [address] | | | | | [address]NAL[address] [facility] | [facility] | | | | | Rd [place], [place] | [place], [place] | | | | | [address] | [address] | | | | | [phone] | | | +--------+ + + + [...] Denise | | | | | | [place] | | | | | | [address] | | | | | | [phone] | | | | | | | | +--------+ + + + + documented as of this encounter Visit Diagnoses Not on filedocumented in this encounter"
--- OUTSIDE RECORDS SUMMARY | ~2019-01-06 | XMS | Encounter Summary ---
Demographics + + + | Address | [address] | | | [place] [address] | + + + | Home Phone [...] | | | | | [place] [address] | | + + + + + | Thania Mallory | ECON | [address] | | | | | [place] [address] | | + + + + + | Deidra Weldon | ECON | [address] | | | | | [place] | | | | | [address] | | + + + + + Care Team Providers + +------+ + | Care Metal Coater Name | Role | Phone | + [...] Mailcode: | | | | | | [address] | [facility] | | | | | | [address] | [place] | | | | | | [place], | [place], [place] | | | | | | [place] | [address] | | | | | | [address] | Phone: | | | | | | Phone: | [phone] | | | | | | [phone] | | | | | | | Fax: | | | | | | | [phone] | | +--------+--------+ + + + + Encounter Details +--------+---------+ + + + | Date | Type | Department | Care Team | Description | +--------+---------+ + + + | 11/16/ | Office | Specialty Clinics | Sudhakar Joy | 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 Have your friend call Brittney about [phone] Sudhakar Joy MD documented in this encounter [...] [facility] Mail code [facility] [place], [place] [address] documented in this encounter Plan [...] [place] | | | | | | [address] | | | | | | [phone] | | | | | | | [...]
--- OUTSIDE RECORDS SUMMARY | ~2019-01-06 | XMS | Encounter Summary ---
Demographics + + + | Address | [address] | | | [place] [address] | + + + | Home Phone [...] | | | | | [place] [address] | | + + + + + | Thania Mallory | ECON | [address] | | | | | [place] [address] | | + + + + + | Deidra Weldon | ECON | [address] | | | | | [place] | | | | | [address] | | + + + + + Care Team Providers + +------+ + | Care Oil Treater Name | Role | Phone | [...] | | | | [place], | | | | | | [place] [address] | | | +--------+ + + + [...] | | | | | | [place], [place] | | | | | | [address] | | | | | | [phone] | | | | | | | [...] DANILO - | [address], | [place] [address] | | | IMMUNOGENETICS/TRANS | [address] | | | | [facility] | | | | + + + + + documented in this encounter Visit Diagnoses Not on filedocumented in this encounter"
--- OUTSIDE RECORDS SUMMARY | ~2019-01-06 | XMS | Encounter Summary ---
Demographics + + + | Address | [address] | | | [place] [address] | + + + | Home Phone [...] | | | | | [place] [address] | | + + + + + | Thania Mallory | ECON | [address] | | | | | [place] [address] | | + + + + + | Deidra Weldon | ECON | [address] | | | | | [place] | | | | | [address] | | + + + + + Care Team Providers + +------+ + | Care Validation Engineer Name | Role | Phone | [...] | Summary | | | | [facility] | [facility] | | | | | Rd [place], [place] | [place], [place] | | | | | [address] | [address] | | | | | [phone] | | | +--------+ + + + [...] [place] | | | | | | [address] | | | | | | [phone] | | | | | | | | +--------+ + + + + documented as of this encounter Visit Diagnoses Not on filedocumented in this encounter"
--- OUTSIDE RECORDS SUMMARY | ~2019-01-06 | XMS | Encounter Summary ---
Demographics + + + | Address | [address] | | | [place] [address] | + + + | Home Phone [...] | | | | | [place] [address] | | + + + + + | Thania Mallory | ECON | [address] | | | | | [place] [address] | | + + + + + | Deidra Weldon | ECON | [address] | | | | | [place] | | | | | [address] | | + + + + + Care Team Providers + +------+ + | Care Customer Account Technician Name | Role | Phone | [...] | recommendations) | | | | [address]NAL[address] [facility] | [facility] | | | | | Rd [place], [place] | [place], [place] | | | | | [address] | [address] | | | | | [phone] | | | +--------+ + + + [...] Denise | | | | | | [place] | | | | | | [address] | | | | | | [phone] | | | | | | | | +--------+ + + + + documented as of this encounter Visit Diagnoses Not on filedocumented in this encounter"
--- OUTSIDE RECORDS SUMMARY | ~2019-01-06 | XMS | Encounter Summary ---
Demographics + + + | Address | [address] | | | [place] [address] | + + + | Home Phone [...] | | | | | [place] [address] | | + + + + + | Thania Mallory | ECON | [address] | | | | | [place] [address] | | + + + + + | Deidra Weldon | ECON | [address] | | | | | [place] | | | | | [address] | | + + + + + Care Team Providers + +------+ + | Care Glycerin Operator Name | Role | Phone | [...] | Update | | | | [address] [facility] | [facility] | | | | | Rd [place], [place] | [place], [place] | | | | | [address] | [address] | | | | | [phone] | | | +--------+ + + + [...] [place] | | | | | | [address] | | | | | | [phone] | | | | | | | | +--------+ + + + + documented as of this encounter Visit Diagnoses Not on filedocumented in this encounter"
--- OUTSIDE RECORDS SUMMARY | ~2019-01-06 | XMS | Encounter Summary ---
Demographics + + + | Address | [address] | | | [place] [address] | + + + | Home Phone [...] | | | | | [place] [address] | | + + + + + | Thania Mallory | ECON | [address] | | | | | [place] [address] | | + + + + + | Deidra Weldon | ECON | [address] | | | | | [place] | | | | | [address] | | + + + + + Care Team Providers + +------+ + | Care Saxophone Player Name | Role | Phone | + [...] Mailcode: | | | | | | [address] | [facility] | | | | | | [address] | [place] | | | | | | [place], | [place], [place] | | | | | | [place] | [address] | | | | | | [address] | Phone: | | | | | | Phone: | [phone] | | | | | | [phone] | | | | | | | Fax: | | | | | | | [phone] | | +--------+--------+ + + + + Encounter Details +--------+---------+ + + + | Date | Type | Department | Care Team | Description | +--------+---------+ + + + | 05/24/ | Office | Specialty Clinics | Sudhakar Joy | [facility] | | 2017 | Visit | at [facility] [address] | DMD [address] | ([place] | | | | [address] | [address] | purpura) nephritis | | | | Mailcode: [facility] | [place], [place] | (Primary Dx); Anemia | | | | [place] | [address] | of chronic kidney | | | | [place], [place] | [phone] | failure, stage 5 | | | | [address] | | ([facility]) | | | | [phone] | | | +--------+---------+ + + + [...] not be referred for transplant. Her adult co founder & ceo could refer her to adult transplant when [...] MD [facility] [address] Mail code [facility] [place], [place] [id number] documented in this encounter Plan of Treatment +--------+ + + + + | Date | Type | Specialty | Care Team | Description | +--------+ + + + + | 05/04/ | Hospital | Adult Acute Care | El Starr MD | | | 2022 | Encounter | | [address] | | | | | | [place], [place] | | | | | | [address] | | | | | | [phone] | | | | | | | [...]
--- OUTSIDE RECORDS SUMMARY | ~2019-01-06 | XMS | Encounter Summary ---
Demographics + + + | Address | [address] | | | [place] [address] | + + + | Home Phone [...] | Author | [facility] | | | and Josephana | + + + | Organization | [facility] | [...] Providers + +------+ + | Care Industrial Technologist Name | Role | Phone | [...] + + | 11/06/ | Hospital | [facility] | Johnathan Brooks, | Chronic right-sided | | 2019 - | Encounter | [facility] | MD Brooks TORRES | heart failure (HCC) | | | | CARE FLOOR [address] | [place] [address] | (Primary Dx); Acute | | 11/09/ | | [address] | [phone] | hypoxemic | | 2019 | | [place], [place] | | respiratory failure | | | | [address] | Darell Kowalski MD | (HCC); Chronic | | | | [phone] | [address]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 [facility]: Medicine DISCHARGE SUMMARY Primary Care [...] be evaluated at local emergency room at [facility]. In the ER patient was [...] the patient's paper documentation from [facility] ER). Initial labs: WBC 6.5, hemoglobin 11.0, [...] suggesting of edema. Taken from Dr. Brooks [facility] (11/06/2018) HOSPITAL COURSE Patient was admitted [...] Blake Chavarria MD ; Location: [facility] MAIN OR AV FISTULA REPAIR Left 03/07/2014 Procedure: AV FISTULA - GRAFT REPAIR/REVISION; Surgeon: Rik Simon MD; Location: [facility] IN OR; Service: Vascular; Laterality: Left; biopsy of kidney age 10 DIALYSIS FISTULA CREATION 04/08/2014 Procedure: DIALYSIS CATHETER - INSERTION; Surgeon: Rik Simon MD; Location: [facility] MAIN OR ; Service: Vascular; Laterality: N/A; tunneled catheter.br hemodialysis catheter KIDNEY BIOPSY Left 2003 OTHER SURGICAL HISTORY LAPAROSCOPIC PERITONEAL DIALYSIS CATHETER INSERTION - x2 OTHER SURGICAL HISTORY Right 07/2013 LAPAROSCOPIC PERITONEAL DIALYSIS CATHETER INSERTION - current dialysis access MWF dialysis OTHER SURGICAL HISTORY Left 06/24/2014 SUPERFICIALIZATION OF AV FISTULA - Procedure: AV FISTULA - SUPERFICIALIZATION; Surgeon: Emanuel Simon MD; Location: [facility] MAIN OR; Service: Vascular; Laterality: Left; OTHER SURGICAL HISTORY Left 04/08/2014 AV FISTULA PLACEMENT - Procedure: AV FISTULA; Surgeon: Rik Simon MD; Location: [facility] ENE N OR; Service: Vascular; Laterality: Left; cephalic OTHER SURGICAL HISTORY Left 03/07/2014 DECLOT GRAFT - Procedure: GRAFT - DECLOT; Surgeon: Rik Simon MD; Location: [facility] MAIN OR ; Service: Vascular; [...] Value Units Date/Time Culture, Body Fluid Sterile [[id number]] Collected: 11/07/18 1515 Order Status: Completed Lab Status: Preliminary result Updated: 11/09/18 141 Specimen: Body Fluid from Pleural Fluid, Right Special Requests RIGHT SIDE Special Requests Testing performed at [facility];[address] [place] [address] Gram Stain Result NO CELLS OR ORGANISMS SEEN RESULT NO GROWTH 2 DAYS RESULT Testing performed at [facility], [address] [place] [address] Comment: Testing performed at [facility], [address] [place] [address] Culture, Body Fluid Sterile [[id number]] Order Status: Canceled Lab Status: No result [...] DOMINGAVAN Follow Up: Jonathan Alonso MD [address] [facility] [place] [address] In 1 week René Anguiano MD [address] [facility] [address] [place] [address] In 1 week Discharge took 60 minutes, [...] her sister. DME equipment order sent to [facility]. She refused oxygen delivery to the hospi mary kate saying that she just wanted to go home. Orders state 1L for ambulating only.Electronical ly signed by Daniela Vyas RN at 11/09/2018 15:47 Anival Patten TOOL SETTER - 11/09/2018 124 5 PDT 11/09/18 1244 Oxygen Therapy Home O2 eval performed? yes Resting on RA (%) 95 Exercising on RA (%) 86 Exercising on O2 (%)(add L/Min in comment) 90 (placed on 1lpm) Anvial Patten RRT - 1129 PDTPatient having dialysis. [...] UF. Hypervolemia has improved with HD/UF/thoracentesis. Acute MO has been ruled out. Recommendations: Plan for [...] for continuity of chart review/care. Dictation software, [employer], was used which may contain error for [...] Medical Rich dent - 11/08/2018 1305 PDT [facility] Inpatient Progress Note Pt: Dara Louise AGE/SEX: [...] hypervolemic and has recurrent hyperkalemia/metabolic acidosis. Acute MO has been ruled out. Recommendations: Plan for [...] for continuity of chart review/care. Dictation software, [employer], was used which may contain error for [...] valsartan 40 mg Oral Daily Yefri Andres [facility] dent - 11/07/2018 0725 PDT [facility] Inpatient Progress Note Pt: Dara Louise AGE/SEX: 23 y.o. ROOM: [facility]/8112-01 : 1995 PCP: Jonathan Alonso MD PATIENT [...] The patient was seen at [facility] ER and then transferred to our internal [...] Student 11/07/2018 7:25 Associated attestation - Darell Kwoalski MD - 11/07/2018 0729 PDTAttending: Pt is seen and examined with [...] E | | | | | | [place] [address] | | | | | | [phone] | | | | | | | [...] | Billie Gupta MD 11/09/2018 9:34 [facility] | | | [facility] Hemo-Dialysis Procedure note Pt is seen on [...] | | . 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 Manager Medical 240 | | | Constitutional: pt appears [...] Testing | 2.3 - 4.8 mg/dL | [facility] | | | | performed at [facility], [address] | | LABORATORY | | | | [address], | | | | | | [place] [address] | | | | + + + + + + + + | Specimen | + + | Blood | + + + + + + + | Performing | Address | City/State/Zipcode | Phone Number | | Organization | | | | + + + + + | [facility] | [address] | [place] [address] | [phone] | + + + + + Comprehensive [...] | | | | | performed at [facility], [address] | | | | | | [facility], | | | | | | [place] [address] | | | | + + + + + + + + | Specimen | + + | Blood | + + + + + + + | Performing | Address | City/State/[facility]ode | Phone Number | | Organization | | | | + + + + + | [facility] | [address] | [place] [address] | [phone] | + + + + + CBC [...] LABORATORY | | | | performed at [facility], [address] | | | | | | [address], | | | | | | [place] [address] | | | | | | | | | | + + + + + + + + | Specimen | + + | Blood | + + + + + + + | Performing | Address | City/State/Zipcode | Phone Number | | Organization | | | | + + + + + | [facility] | [address] | [place] [address] | [phone] | + + + + + Protime INR (11/09/2018 4:14 PDT) + + + + + + | Component | Value | Ref Range | Performed | Pathologist | | | | | At | Signature | + + + + + + | INR | 1.3Comment: REFERENCE | | [facility] | | | | RANGE:0.9 - [...] [place];[address] | | | | | | [facility];[place], [place] | | | | | | [address] | | | | + + + + + + + + | Specimen | + + | Blood | + + + + + + + | Performing | Address | City/State/Zipcode | Phone Number | | Organization | | | | + + + + + | [facility] | [address] | [place] [address] | [phone] | + + + + + Comprehensive [...] | | | | | performed at [facility], [address] | | | | | | [facility], | | | | | | [place] [address] | | | | + + + + + + + + | Specimen | + + | Blood | + + + + + + + | Performing | Address | City/State/Zipcode | Phone Number | | Organization | | | | + + + + + | [facility] | [address] | [place] [address] | [phone] | + + + + + CBC [...] | | | | | | at [facility], [address] | | | | | | [facility], | | | | | | [place] [address] | | | | | |Testing performed at [facility], [address] [place] [address] | | | | | | | | | | + + +--- + + + + + | Specimen | + + | Blood | + + + + + + + | Performing | Address | City/State/Zipcode | Phone Number | | Organization | | | | + + + + + | [facility] | [address] | [place] [address] | [phone] | + + + + + Protime INR (11/08/2018 4:47 PDT) + + + + + + | Component | Value | Ref Range | Performed | Pathologist | | | | | At | Signature | + + + + + + | INR | 1.3Comment: REFERENCE | | [facility] | | | | RANGE:0.9 - [...] | | | | | | [address];[place] | | | | | | [address] | | | | + + + + + + + + | Specimen | + + | Blood | + + + + + + + | Performing | Address | City/State/Zipcode | Phone Number | | Organization | | | | + + + + + | [facility] | [address] [facility] | [place] [address] | [phone] | + + + + + XR [...] is | | | punctured with an 5-Burmese thoracentesis catheter. Fluid is aspirated | | [...] the pleural space is punctured with an 5-Burmese | | thoracentesis catheter. Fluid is aspirated [...] + + | Performing | Address | City/State/[facility] Cent[facility]ode | Phone Number | | [...] | | LABORATORY | | | | Blvd;[place] [address] | | | | + + + [...] RESULT | Testing performed at | | [facility] | | | | [facility], [address] [facility] | | LABORATORY | | | | [place], [place] | | | | | | [address]Vmelcpm: Testing | | | | | | performed at [facility], [address] | | | | | | [facility], [place], [place] | | | | | | [address] | | | | + + + + + + + + | Specimen | + + | Body Fluid | + + + + + + + | Performing | Address | City/State/Zipcode | Phone Number | | Organization | | | | + + + + + | [facility] | [address] [facility] | [place] [address] | [phone] | + + + + + Protein, Body Fluid (11/07/2018 15:15 PDT) + + + + + + | Component | Value | Ref Range | Performed | Pathologist | | | | | At | Signature | + + + + + + | Protein, BF | 3.4Comment: This is not | g/dL | [facility] | | | | a clay maker validated | | LABORATORY | | | | sample type for this | | | | | | method. No | | | | | | referenceranges have | | | | | | been established.Testing | | | | | | performed at [facility], [address] | | | | | [address], | | | | | | [place] [address] | | | | + + + + + + | SOURCE | PLEURAL FLUIDComment: | | [facility] | | | | Testing performed at | | LABORATORY | | | | [facility];[address] [place] [address] | | | | | | [address] [address] | | | | + + + + + + + + | Specimen | + + | Body Fluid | + + + + + + + | Performing | Address | City/State/Zipcode | Phone Number | | Organization | | | | + + + + + | [facility] | [address] | [place] [address] | [phone] | + + + + + Lactate dehydrogenase, body fluid (11/07/2018 15:15 PDT) + + + + + + | Component | Value | Ref Range | Performed | Pathologist | | | | | At | Signature | + + + + + + | LDH, BODY | 102Comment: This is not | U/L | [facility] | | | FLUID | a clay maker validated | | LABORATORY | | | | sample type for this | | | | | | method. No | | | | | | referenceranges have | | | | | | been established.Testing | | | | | | performed at [facility], [address] | | | | | | [address] [facility], | | | | | | [place] [address] | | | | + + + + + + + + | Specimen | + + | Body Fluid | + + + + + + + | Performing | Address | City/State/Zipcode | Phone Number | | Organization | | | | + + + + + | [facility] | [address] | [place] [address] | [phone] | + + + + + Glucose, Body Fluid (11/07/2018 15:15 PDT) + + + + + + | Component | Value | Ref Range | Performed | Pathologist | | | | | At | Signature | + + + + + + | Glucose | 96Comment: This is not a | mg/dL | [facility] | | | Fluid | clay maker validated | | LABORATORY | | | | sample type for this | | | | | | method. No | | | | | | referenceranges have | | | | | | been established.Testing | | | | | | performed at [facility], [address] | | | | | | [address], | | | | | | [place] [address] | | | | + + + + + + | SOURCE | PLEURAL FLUIDComment: | | [facility] | | | | Testing performed at | | LABORATORY | | | | [facility];[address] | | | | | | [address] [address] | | | | + + + + + + + + | Specimen | + + | Body Fluid | + + + + + + + | Performing | Address | City/State/Zipcode | Phone Number | | Organization | | | | + + + + + | [facility] | [address] | [place] [address] | [phone] | + + + + + Cell [...] + + + | BF RBC | <17581 | /mm3 | [facility] | | | [...] | | Counted | performed at [facility];[address] | | LABORATORY | | | | [address];[place], [place] | | | | | | [address] | | | | + + + + + + + + | Specimen | + + | Body Fluid | + + + + + + + | Performing | Address | City/State/Zipcode | Phone Number | | Organization | | | | + + + + + | [facility] | [address] | [place] [address] | [phone] | + + + + + Amylase, Body Fluid (11/07/2018 15:15 PDT) + + + + + + | Component | Value | Ref Range | Performed | Pathologist | | | | | At | Signature | + + + + + + | AMYLASE | 46Comment: This is not a | U/L | [facility] | | | FLUID | clay maker validated | | LABORATORY | | | | sample type for this | | | | | | method. No | | | | | | referenceranges have | | | | | | been established.Testing | | | | | | performed at [facility], [address] | | | | | | [address], | | | | | | [place] [address] | | | | + + + + + + + + | Specimen | + + | Body Fluid | + + + + + + + | Performing | Address | City/State/Zipcode | Phone Number | | Organization | | | | + + + + + | [facility] | [address] | [place] [address] | [phone] | + + + + + Albumin, Body Fluid (11/07/2018 15:15 PDT) + + + + + + | Component | Value | Ref Range | Performed | Pathologist | | | | | At | Signature | + + + + + + | Albumin, | 2.0Comment: This is not | g/dL | [facility] | | | Fluid | a clay maker validated | | LABORATORY | | | | sample type for this | | | | | | method. No | | | | | | referenceranges have | | | | | | been established.Testing | | | | | | performed at [facility], [address] | | | | | [address], | | | | | | [place] [address] | | | | + + + + + + + + | Specimen | + + | Body Fluid | + + + + + + + | Performing | Address | City/State/Zipcode | Phone Number | | Organization | | | | + + + + + | [facility] | [address] | [place] [address] | [phone] | + + + + + Medical Cytology (11/07/2018 15:15 PDT) + + | Specimen | + + | Body Fluid | + + + + + | Narrative | Performed At | + + + | ORDERING | [facility] PATH[facility] | | PHYSICIAN:Dex ALMEIDA, Darell Scott [...] | | | preparation was performed by [employer], [address] | | | [place] [address] (Top Frame Fitter: Matt Claudio D.O.; | | | CLIA#: [id number]).Professional interpretation was performed by | | | [employer], | | | [place] [address] (Top Frame Fitter: Daniel Larson M.D.; | | | CLIA#: [id number]).6 Diagnostician: Enrrique Nichols | | | CT([facility])CytotechnologistDiagnostician: Daniel Larson | | | MDPathologistElectronically Signed 11/13/2018 | | |DESCRIPTION: | | |The preparations contain mesothelial cells, rare inflammatory cells, and acellular proteina ceous material. Atypical cytologic findings are not encountered. | | | | | |SPECIMEN ADEQUACY: | | |Satisfactory for Evaluation | | | | | |PERFORMING LABORATORY: | | |Technical preparation was performed by [employer], [address] [place] [address] (Top Frame Fitter: Matt Claudio D.O.; CLIA#: [id number]). | | |Professional interpretation was performed by [employer], [address] [place] [address] (Top Frame Fitter: Daniel Larson M.D.; [facility]# : [id number]).6 | | | | | |Diagnostician: Enrrique BROOKS([facility]) | | |[employer] | | |Diagnostician: Daniel Larson MD | [...] | | | | | | [facility];[address] [facility] | | | | | | vd;[place] [address] | | | | + + + + + + + + | Specimen | + + | Blood | + + + + + + + | Performing | Address | City/State/Zipcode | Phone Number | | Organization | | | | + + + + + | [facility] | [address] | [place] [address] | [phone] | + + + + + ECG [...] at [facility] | | | | | | [address];[place], [place] | | | | | | [address] | | | | + + + + + + + + | Specimen | + + | Blood | + + + + + + + | Performing | Address | City/State/Zipcode | Phone Number | | Organization | | | | + + + + + | [facility] | [address] | [place] [address] | [phone] | + + + + + Platelet Count (11/07/2018 4:03 PDT) + + + + + + | Component | Value | Ref Range | Performed | Pathologist | | | | | At | Signature | + + + + + + | Platelet | 185Comment: Testing | 150 - 400 K/uL | [facility] | | | Count | performed at [facility], [address] | | LABORATORY | | | | [address], | | | | | | [place] [address] | | | | + + + + + + + + | Specimen | + + | Blood | + + + + + + + | Performing | Address | City/State/Zipcode | Phone Number | | Organization | | | | + + + + + | [facility] | [address] | [place] [address] | [phone] | + + + + + PTT [...] [facility];[address] | | LABORATORY | | | | [address];[place] | | | | | | [address] | | | | + + + + + + + + | Specimen | + + | Blood | + + + + + + + | Performing | Address | City/State/Zipcode | Phone Number | | Organization | | | | + + + + + | [facility] | [address] | [place] [address] | [phone] | + + + + + Lactate Dehydrogenase (11/07/2018 4:03 PDT) + + + + + + | Component | Value | Ref Range | Performed | Pathologist | | | | | At | Signature | + + + + + + | LDH TOTAL | 202Comment: Testing | 120 - 246 U/L | [facility] | | | | performed at [facility] | | LABORATORY | | | | [facility];[place], [place] | | | | | | [address] | | | | + + + + + + + + | Specimen | + + | Blood | + + + + + + + | Performing | Address | City/State/Zipcode | Phone Number | | Organization | | | | + + + + + | [facility] | [address] | [place] [address] | [phone] | + + + + + Magnesium (11/07/2018 4:03 PDT) + + + + + + | Component | Value | Ref Range | Performed | Pathologist | | | | | At | Signature | + + + + + + | Magnesium | 2.3Comment: Testing | 1.7 - 2.4 mg/dL | [facility] | | | | performed at [facility];[address] | | LABORATORY | | | | [address];[place] | | | | | | [address] | | | | + + + + + + + + | Specimen | + + | Blood | + + + + + + + | Performing | Address | City/State/Zipcode | Phone Number | | Organization | | | | + + + + + | [facility] | [address] | [place] [address] | [phone] | + + + + + Comprehensive [...] | | | | | performed at [facility], [address] | | | | | | [facility], | | | | | | [place] [address] | | | | + + + + + + + + | Specimen | + + | Blood | + + + + + + + | Performing | Address | City/State/Zipcode | Phone Number | | Organization | | | | + + + + + | [facility] | [address] | [place] [address] | [phone] | + + + + + Troponin I (11/06/2018 21:54 PDT) + + + + + + | Component | Value | Ref Range | Performed | Pathologist | | | | | At | Signature | + + + + + + | Troponin I | 0.045 (H)Comment: 0.04 | 0.00 - 0.04 | [facility] | | | | ng/mL or [...] | | | | | | [facility];[address] [place] [address] | | | | | | [facility];[place] [address] | | | | + + + + + + + + | Specimen | + + | Blood | + + + + + + + | Performing | Address | City/State/Zipcode | Phone Number | | Organization | | | | + + + + + | [facility] | [address] | [place] [address] | [phone] | + + + + + Protime INR (11/06/2018 17:32 PDT) + + + + + + | Component | Value | Ref Range | Performed | Pathologist | | | | | At | Signature | + + + + + + | INR | 1.3Comment: REFERENCE | | [facility] | | | | RANGE:0.9 - [...] | | | | | [address];[place] | | | | | | [address] | | | | + + + + + + + + | Specimen | + + | Blood | + + + + + + + | Performing | Address | City/State/Zipcode | Phone Number | | Organization | | | | + + + + + | [facility] | [address] | [place] [address] | [phone] | + + + + + ECHO [...] | | | | | | [facility];[address] | | | | | [address];[place] [address] | | | | + + + + + + + + | Specimen | + + | Blood | + + + + + + + | Performing | Address | City/State/Zipcode | Phone Number | | Organization | | | | + + + + + | [facility] | [address] | [place] [address] | [phone] | + + + + + Magnesium (11/06/2018 15:57 PDT) + + + + + + | Component | Value | Ref Range | Performed | Pathologist | | | | | At | Signature | + + + + + + | Magnesium | 2.4Comment: Testing | 1.7 - 2.4 mg/dL | [facility] | | | | performed at [facility], [address] | | LABORATORY | | | | [address], | | | | | | [place] [address] | | | | + + + + + + + + | Specimen | + + | Blood | + + + + + + + | Performing | Address | City/State/Zipcode | Phone Number | | Organization | | | | + + + + + | [facility] | [address] | [place] [address] | [phone] | + + + + + documented [...] + + | ESRD on hemodialysis ([facility]) End stage renal disease [...]
--- OUTSIDE RECORDS SUMMARY | ~2019-01-06 | XMS | Encounter Summary ---
Demographics + + + | Address | [address] | | | [place] [address] | + + + | Home Phone [...] | | | | | [place] [address] | | + + + + + | Thania Mallory | ECON | [address] | | | | | [place] [address] | | + + + + + | Deidra Weldon | ECON | [address] | | | | | [place] | | | | | [address] | | + + + + + Care Team Providers + +------+ + | Care Extraction Machine Operator Name | Role | Phone [...] | Update | | | | ANNALISA [facility] | [facility] | | | | | [address] [place], [place] | [place], [place] | | | | | [address] | [address] | | | | | [phone] | | | +--------+ + + + [...] Denise | | | | | | [place], [place] | | | | | | [address] | | | | | | [phone] | | | | | | | | +--------+ + + + + documented as of this encounter Visit Diagnoses + + | Diagnosis | + + | 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
--- OUTSIDE RECORDS SUMMARY | ~2019-01-06 | XMS | Encounter Summary ---
Demographics + + + | Address | [address] | | | [place] [address] | + + + | Home Phone [...] | | | | | [place] [address] | | + + + + + | Thania Mallory | ECON | [address] | | | | | [place] [address] | | + + + + + | Deidra Weldon | ECON | [address] | | | | | [place] | | | | | [address] | | + + + + + Care Team Providers + +------+ + | Care Curtain Cutter Hand Name | Role | Phone | [...] | | | | | ANNALISA [facility] | [facility], | | | | | [place], [place] | [place] [address] | | | | | [address] | | | | | | [phone] | | | +--------+ + + + [...] Denise | | | | | | [place] | | | | | | [address] | | | | | | [phone] | | | | | | | | +--------+ + + + + documented as of this encounter Visit Diagnoses Not on filedocumented in this encounter"
--- OUTSIDE RECORDS SUMMARY | ~2019-01-06 | XMS | Encounter Summary ---
Demographics + + + | Address | [address] | | | [place] [address] | + + + | Home Phone [...] | | | | | [place] [address] | | + + + + + | Thania Mallory | ECON | [address] | | | | | [place] [address] | | + + + + + | Deidra Weldon | ECON | [address] | | | | | [place] | | | | | [address] | | + + + + + Care Team Providers + +------+ + | Care Molding Fitter Name | Role | Phone | [...] Shun | | | | | [address] | [facility] | | | | | [place], [place] | [place] [address] | | | | | [address] | [phone] | | | | | | | [...] | | | | | | [place], [place] | | | | | | [address] | | | | | | [phone] | | | | | | | | +--------+ + + + + documented as of this encounter Visit Diagnoses Not on filedocumented in this encounter"
--- OUTSIDE RECORDS SUMMARY | ~2019-01-06 | XMS | Encounter Summary ---
Demographics + + + | Address | [address] | | | [place] [address] | + + + | Home Phone [...] | | | | | [place] [address] | | + + + + + | Thania Mallory | ECON | [address] | | | | | [place] [address] | | + + + + + | Deidra Weldon | ECON | [address] | | | | | [place] | | | | | [address] | | + + + + + Care Team Providers + +------+ + | Care Library Historian Name | Role | Phone | [...] SW | | | | ANNALISA [facility] | [facility] [address] | clinic visit - | | | | Rd [place], [place] | [place] | psychosocial | | | | [address] | [address] | readiness update) | | | | [phone] | | | +--------+ + + + [...] Denise | | | | | | [place], [place] | | | | | | [address] | | | | | | [phone] | | | | | | | | +--------+ + + + + documented as of this encounter Visit Diagnoses Not on filedocumented in this encounter"
--- OUTSIDE RECORDS SUMMARY | ~2019-01-06 | XMS | Encounter Summary ---
Demographics + + + | Address | [address] | | | [place] [address] | + + + | Home Phone [...] | | | | | [place] [address] | | + + + + + | Thania Mallory | ECON | [address] | | | | | [place] [address] | | + + + + + | Deidra Weldon | ECON | [address] | | | | | [place] | | | | | [address] | | + + + + + Care Team Providers + +------+ + | Care Combination Window Installer Name | Role | Phone | [...] attempt(s) to | | | | Rd [place], [place] | [place], [place] | contact pt re move | | | | [address] | [address] | and new PAF as | | | | [phone] | | listed) | +--------+ + + [...] | | | | | | [place], [place] | | | | | | [address] | | | | | | [phone] | | | | | | | | +--------+ + + + + documented as of this encounter Visit Diagnoses Not on filedocumented in this encounter"
--- OUTSIDE RECORDS SUMMARY | ~2019-01-06 | XMS | Encounter Summary ---
Demographics + + + | Address | [address] | | | [place] [address] | + + + | Home Phone [...] | | | | | [place] [address] | | + + + + + | Thania Mallory | ECON | [address] | | | | | [place] [address] | | + + + + + | Deidra Weldon | ECON | [address] | | | | | [place] | | | | | [address] | | + + + + + Care Team Providers + +------+ + | Care Safety Assistant Name | Role | Phone | [...] | | | | | ANNALISA [facility] | [place] [address] | | | | | [place], [place] | [place], [place] | | | | | [address] | [address] | | | | | [phone] | [phone] | | | | | | | [...] | | | | | | [place], [place] | | | | | | [address] | | | | | | [phone] | | | | | | | | +--------+ + + + + documented as of this encounter Visit Diagnoses Not on filedocumented in this encounter"
--- OUTSIDE RECORDS SUMMARY | ~2019-01-06 | XMS | Encounter Summary ---
Demographics + + + | Address | [address] | | | [place] [address] | + + + | Home Phone [...] | | | | | [place] [address] | | + + + + + | Thania Mallory | ECON | [address] | | | | | [place] [address] | | + + + + + | Deidra Weldon | ECON | [address] | | | | | [place] | | | | | [address] | | + + + + + Care Team Providers + +------+ + | Care Database Security Expert Name | Role | Phone | [...] pt's living/support | | | | Rd [place], [place] | [place], [place] | situation) | | | | [address] | [address] | | | | | [phone] | | | +--------+ + + + [...] Denise | | | | | | [place] | | | | | | [address] | | | | | | [phone] | | | | | | | | +--------+ + + + + documented as of this encounter Visit Diagnoses Not on filedocumented in this encounter"
--- OUTSIDE RECORDS SUMMARY | ~2019-01-06 | XMS | Encounter Summary ---
Demographics + + + | Address | [address] | | | [place] [address] | + + + | Home Phone [...] | | | | | [place] [address] | | + + + + + | Thania Mallory | ECON | [address] | | | | | [place] [address] | | + + + + + | Deidra Weldon | ECON | [address] | | | | | [place] | | | | | [address] | | + + + + + Care Team Providers + +------+ + | Care Batch Maker Name | Role | Phone | + +------+ + | Shahid Camargo MD | PCP | | + +------+ + Encounter Details +--------+------+ + + + | Date | Type | Department | Care Team | Description | +--------+------+ + + + | 12/20/ | Lab | [facility] Center at [facility] | | Allergic purpura- | | 2012 | | 7th Floor [address] | | MEDICARE [address] | | | | [address] | | (Primary Dx) | | | | [place], [place] | | | | | | [address] | | | | | | [phone] | | | +--------+------+ + + + [...] Denise | | | | | | [place], [place] | | | | | | [address] | | | | | | [phone] | | | | | | | [...] - | [address] | [place], [place] | | | IMMUNOGENETICS/TRANS | Suite [...] - | [address] | [place], [place] | | | IMMUNOGENETICS/TRANS | Suite [...] [facility] - | [address] | [place] [address] | | | IMMUNOGENETICS/TRANS | [address] [...] [facility] - | [address] | [place] [address] | | | IMMUNOGENETICS/TRANS | [address] [...] + + | [facility] - | [address] | [place] [address] | | | IMMUNOGENETICS/TRANS | [address] [...] - | [address] | [place], [place] | | | IMMUNOGENETICS/TRANS | [address] [...] - | [address] | [place], [place] | | | IMMUNOGENETICS/TRANS | Suite [...] [facility] - | [address] | [place] [address] | | | IMMUNOGENETICS/TRANS | [address] [...] + + | [facility] - | [address] | [place] [address] | | | IMMUNOGENETICS/TRANS | [address] [...] | + + + + + | [facility] | [address] | [place] [address] | | | SERVICES, | [address] [...] [facility] | [address] | [place] [address] | | | SERVICES, | [address] [...] | + + + + + | [facility] | [address] | [place] [address] | | | SERVICES, CORE | PARK [...] UNIV | | | | Pippa Sauceda, [facility],[place] | | PTH - INTFC | | | | [address] | | | | | | [phone].aruplab. | | | | | | annalee, [...] [facility] | [address] | [place], [place] | | | UNIV PTH - INTFC | | [address] | | + + + + + [...] + + | [facility] | [address] | [place] [address] | | | SERVICESHOMERO | [address] [...] | + + + + + | [facility] | [address] | [place] [address] | | | SERVICES, CORE | PARK [...] + | [facility] | [address] | [place] [address] | | | [place] | | | [...] | + + + + + | [facility] | [address] | [place] [address] | | | SERVICES, CORE | PARK [...] (H) | 2.5 - 6.2 mg/dL | [facility] | | | PLASMA | | | [...] [facility] | [address] | [place] [address] | | | SERVICES, CORE | PARK [...] | + + + + + | [facility] | [address] | [place] [address] | | | SERVICES, CORE | PARK [...] | | | | | | [facility] | | + + + + + + + + | Specimen | + + | Blood - Blood | + + + + + + + | Performing | Address | City/State/Zipcode | Phone Number | | Organization | | | | + + + + + | [facility] - | [address] | [place] [address] | | | [place] | | | [...] at: | | | | | | http://www.cdc.gov/nchstp/tb/pubs/tbfactssheets/214562.htm | | | Test performed by: [facility] [address] [place] [address] | | + + + + + [...] [facility] | [address] | [place] [address] | | | SERVICES, SPECIAL | PARK [...] gene at | DIAGNOSTIC | | nucleotide [address]136. Please note that this assay only detects the | LABORATORIES | | [id number] point mutation and therefore a normal result [...] has been analyzed for the presence of [id number] | | | mutation in the prothrombin [...] | | Heterozygotes for the common prothrombin L39214Y mutation constitute | | | approximately 2% of the normal white population (1,2). | | | References: 1.) Poort et al. Blood 88, 6361-5833 (1995). 2.) Ricardo | | | et al. Circulation 99, 999-1004 (1998). 3.) Al Montalvo, and | | | Press. Amer J Clin Path 155, 439-47 (2000). This test was | | | developed and its performance characteristics determined by the [facility] | | | [facility]. It has | | | not been cleared or approved by the Food and Drug Administration. | | | FDA approval is not required for clinical use of this test, and | | | therefore validation was done as required under the requirements of | | | the Clinical Laboratory Improvement Act of 1988. The [facility] | | | Diagnostic [facility] is a fully | | | licensed and/or accredited clinical laboratory under CLIA, CAP, and | | | the [facility]. Please note that [...] + + + + + | [facility] | [address] | [place] [address] | | | DIAGNOSTIC | [address] [...] [facility] | [address] | [place] [address] | | | SERVICES, HOMERO | PARK [...] | + + + + + | [facility] | [address] | [place] [address] | | | SERVICES, CORE | LONG [...] [facility] | [address] | [place] [address] | | | SERVICES, CORE | PARK [...] | + + + + + | [facility] | [address] | [place] [address] | | | HOMERO LAN | LONG [...] | | | | | [place], [place] [address] | | | | | | [phone].aruplab. | | | | | | Faisal [...] [facility] | [address] | [place], [place] | | | UNIV PTH - INTFC | | [address] | | + + + + + [...] | + + + + + | [facility] | [address] | [place] [address] | | | SERVICES, SPECIAL | PARK [...] C PCR, | Undetected | IU/mL | [facility] | | | QUANT | | | [...] + + + + | [facility] | [address] | [place] [address] | | | DIAGNOSTIC | [address] [...] + | [facility] - | [address] | [place] [address] | | | [place] | | | [...] + | [facility] - | [address] | [place] [address] | | | [place] | | | [...] + | [facility] - | [address] | [place] [address] | | | [place] | | | [...] + | [facility] - | [address] | [place] [address] | | | [place] | | | | + + + [...] less......Not | | | | | | Zvbcvmne84.0-21.9 | | | | | | U/mL.........Indetermina [...] available | | | | | | [email or web address] | | | | | | vdx.Performed by [facility] | | | | | | [facility],[address] | | | | | | [place], [facility] [address] | | | | | | [phone].Sylvan Sourcelab. | | | | | | Faisal [...] [facility] | [address] | [place], [place] | | | UNIV PTH - INTFC | | [address] | | + + + + + [...] + | [facility] | [address] | [place] [address] | | | [facility] | | | | + [...] | + + + + + | [facility] | [address] | [place] [address] | | | SERVICES, CORE | PARK [...] by | | | | | | [employer],[address] | | | | | | Pipp[address] Sauceda, [facility],[place] | | | | | | [address] | | | | | | [phone].[employer]ylvan Sourcelab. 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
--- OUTSIDE RECORDS SUMMARY | ~2019-01-06 | XMS | Encounter Summary ---
Demographics + + + | Address | [address] | | | [place] [address] | + + + | Home Phone [...] | | | | | [place] [address] | | + + + + + | Thania Mallory | ECON | [address] | | | | | [place] [address] | | + + + + + | Deidra Weldon | ECON | [address] | | | | | [place] | | | | | [address] | | + + + + + Care Team Providers + +------+ + | Care Steel Welder Name | Role | Phone | [...] | [facility] | [place], [place] | | | | | [address] | [address] | | | | | Caro [address] Mailcode: | [phone] | | | | | [address] | | | | | | [place], [place] | | | | | | [address] | | | | | | [phone] | | | +--------+ + + + [...] Denise | | | | | | [place], [place] | | | | | | [address] | | | | | | [phone] | | | | | | | | +--------+ + + + + documented as of this encounter Visit Diagnoses Not on filedocumented in this encounter"
--- OUTSIDE RECORDS SUMMARY | ~2019-01-06 | XMS | Encounter Summary ---
Demographics + + + | Address | [address] | | | [place] [address] | + + + | Home Phone [...] | | | | | [place] [address] | | + + + + + | Thania Mallory | ECON | [address] | | | | | [place] [address] | | + + + + + | Deidra Weldon | ECON | [address] | | | | | [place] | | | | | [address] | | + + + + + Care Team Providers + +------+ + | Care Sql Database Programmer Name | Role | Phone | [...] Rd | | | | | [facility] | [place], [place] | | | | | [address] | [address] | | | | | Caro [place] Mailcode: | [phone] | | | | | [address] | | | | | | [place], [place] | | | | | | [address] | | | | | | [phone] | | | +--------+ + + + [...] Denise | | | | | | [place], [place] | | | | | | [address] | | | | | | [phone] | | | | | | | [...] + + | [facility] - | [address] | [place] | [phone] | | [place] | | | | + + + + + documented in this encounter Visit Diagnoses Not on filedocumented in this encounter"
--- OUTSIDE RECORDS SUMMARY | ~2019-01-06 | XMS | Encounter Summary ---
Demographics + + + | Address | [address] | | | [place] [address] | + + + | Home Phone [...] | | | | | [place] [address] | | + + + + + | Thania Mallory | ECON | [address] | | | | | [place] [address] | | + + + + + | Deidra Weldon | ECON | [address] | | | | | [place] | | | | | [address] | | + + + + + Care Team Providers + +------+ + | Care Blower Mechanic Name | Role | Phone | [...] | | | [facility] | [place], [place] | | | | | [address] | [address] | | | | | Caro [address] Mailcode: | [phone] | | | | | [address] | | | | | | [place], [place] | | | | | | [address] | | | | | | [phone] | | | +--------+ + + + [...] Denise | | | | | | [place], [place] | | | | | | [address] | | | | | | [phone] | | | | | | | | +--------+ + + + + documented as of this encounter Visit Diagnoses Not on filedocumented in this encounter"
--- OUTSIDE RECORDS SUMMARY | ~2019-01-06 | XMS | Encounter Summary ---
Demographics + + + | Address | [address] | | | [place] [address] | + + + | Home Phone [...] + | Author | [facility] [employer] (Historical as of | | | 10-20-18) | + + + | Organization | [facility] [employer] (Historical as of | | | 10-20-18) [...] Providers + +------+ + | Care Research Staff Member Name | Role | Phone | [...] | | 2018 | on Only | [address] | 2019-[facility] Provider | | | | [address] | [address] [place], [place] | Dialysis Rounding | | | | [place] [address] | [address] | Note) | | | | [phone] | | | +--------+ + + + [...]
--- OUTSIDE RECORDS SUMMARY | ~2019-01-06 | XMS | Encounter Summary ---
Demographics + + + | Address | [address] | | | [place] [address] | + + + | Home Phone [...] | Author | [facility] | | | and Josephana | + + + | Organization | [facility] [...] Team Providers + +------+ + | Care Donor Services Manager Name | Role | Phone | + +------+ + | Jonathan Alonso MD | PCP | | + +------+ + Encounter Details +--------+ + + + + | Date | Type | Department | Care Team | Description | +--------+ + + + + | 10/17/ | Hospital | [facility] | Nikita, | ESRD (end stage | | 2019 - | Encounter | [facility] | MD Naresh [address] | renal disease) | | | | CARE FLOOR [address] | ([facility]); Dilated | | 10/22/ | | [address] | [place] [address] | cardiomyopathy | | 2019 | | [place], [place] | [phone] | ([facility]); | | | | [address] | | Non-cardiogenic | | | | [phone] | Gerber Pearson MD | pulmonary edema; | | | | | [address] | Anemia in ESRD | | | | | [place] [address] | (end-stage renal | | | | | [phone] | disease) ([facility]); | | | | [...] failure | | | | | | ([facility]); At high risk | [...] might be different from t chacha coleman. [facility] Service: Hospitalist Physician Discharge Summary [...] is to follow up with her regular head sampler, Dr. Hurtado. DISCHARGE DIAGNOSES: 1. End-stage renal [...] Chavarria MD ; Location: [facility] MAIN OR AV FISTULA REPAIR Left 03/07/2014 Procedure: AV FISTULA - GRAFT REPAIR/REVISION; Surgeon: Rik Simon MD; Location: [facility] IN OR; Service: Vascular; Laterality: Left; biopsy of kidney age 10 DIALYSIS FISTULA CREATION 04/08/2014 Procedure: DIALYSIS CATHETER - INSERTION; Surgeon: Rik Simon MD; Location: [facility] MAIN OR ; Service: Vascular; Laterality: N/A; tunneled catheter.br hemodialysis catheter KIDNEY BIOPSY Left 2003 OTHER SURGICAL HISTORY LAPAROSCOPIC PERITONEAL DIALYSIS CATHETER INSERTION - x2 OTHER SURGICAL HISTORY Right 07/2013 LAPAROSCOPIC PERITONEAL DIALYSIS CATHETER INSERTION - current dialysis access MWF dialysis OTHER SURGICAL HISTORY Left 06/24/2014 SUPERFICIALIZATION OF AV FISTULA - Procedure: AV FISTULA - SUPERFICIALIZATION; Surgeon: Emanuel Simon MD; Location: [facility] MAIN OR; Service: Vascular; Laterality: Left; OTHER SURGICAL HISTORY Left 04/08/2014 AV FISTULA PLACEMENT - Procedure: AV FISTULA; Surgeon: Rik Simon MD; Location: [facility]; Service: Vascular; Laterality: Left; cephalic OTHER [...] have: Continued coughing Fever Date Last Reviewed: 02/04/201619992723-7224 [employer]. [address] [place] [address]. All righ ts reserved. This information is [...] by your healthcare provider Date Last Reviewed: 12/05/201519991127-9793 [employer]. [address] [place] [address]. All righ ts reserved. This information is [...] + + +---------+ + + | B Iytdbjj-G-Dfjuv | Take 1 tablet by | | [...] I have discussed the case with the SURVEILLANCE OFFICER. I agree with his findings & documentation. [...] by Jorge Diehl RN at 10/21/2018 16:47 Antonoi Carrasco MD - 10/21/2018 1500 PDT [facility] Service: NEPHROLOGY Progress Note Dara Weldon 23 y.o. [id number] female Jonathan Alonso MD Hospital Day: [...] Chavarria MD ; Location: [facility] MAIN OR AV FISTULA REPAIR Left 03/07/2014 Procedure: AV FISTULA - GRAFT REPAIR/REVISION; Surgeon: Rik Simon MD; Location: [facility]; Service: Vascular; Laterality: Left; biopsy of kidney age 10 DIALYSIS FISTULA CREATION 04/08/2014 Procedure: DIALYSIS CATHETER - INSERTION; Surgeon: Rik Simon MD; Location: [facility] MAIN OR ; Service: Vascular; Laterality: N/A; tunneled catheter.br hemodialysis catheter KIDNEY BIOPSY Left 2003 OTHER SURGICAL HISTORY LAPAROSCOPIC PERITONEAL DIALYSIS CATHETER INSERTION - x2 OTHER SURGICAL HISTORY Right 07/2013 LAPAROSCOPIC PERITONEAL DIALYSIS CATHETER INSERTION - current dialysis access MWF dialysis OTHER SURGICAL HISTORY Left 06/24/2014 SUPERFICIALIZATION OF AV FISTULA - Procedure: AV FISTULA - SUPERFICIALIZATION; Surgeon: Emanuel Simon MD; Location: [facility] MAIN OR; Service: Vascular; Laterality: Left; OTHER SURGICAL HISTORY Left 04/08/2014 AV FISTULA PLACEMENT - Procedure: AV FISTULA; Surgeon: Rik Simon MD; Location: [facility]; Service: Vascular; Laterality: Left; cephalic OTHER SURGICAL HISTORY Left 03/07/2014 DECLOT GRAFT - Procedure: GRAFT - DECLOT; Surgeon: Rik Simon MD; Location: [facility] MAIN OR ; Service: Vascular; Laterality: [...] file Social History Narrative She lives in [facility]. She does not work. She has [...] MR, severe TR.severe pulmonary hyperten arturo Chest s-tjr-kmtozulgsnle with pulmonary edema and large right pleural [...] earlier and charting completed later Dictation software, [employer], used which may contain error for similar sounding words even af ter review. Personal communication requested for any clarification. Portions of my notes may have been carried over for continuity of care.Electronically ananth d by Antonio Benjamin MD at 10/21/2018 15:11 PDTVinGerber pastrana MD - 10/21/2018 0718 PDTFormat ting of this note might be different from the original. [facility] Adult Hospitalist Progress Note Hospital [...] BUN 90 on admission -History of a [place] Schnlein purpura -Last hemodialysis approximately 2 weeks [...] Gerber Fernandez MD - 10/20/2018 0909 PDT [facility] Adult Hospitalist Progress Note Hospital [...] BUN 90 on admission -History of a [place] Schnlein purpura -Last hemodialysis approximately 2 weeks [...] E | | | | | | [place] [address] | | | | | | [phone] | | | | | | | [...] - [facility], [address] | | LABORATORY | | | | [address], | | | | | | [place] [address] | | | | + + + + + + + + | Specimen | + + | Blood | + + + + + + + | Performing | Address | City/State/Zipcode | Phone Number | | Organization | | | | + + + + + | [facility] | [address] | [place] [address] | [phone] | + + + + + Basic [...] 7 (L)Comment: GFR <60: | >60 | [facility] | | | GFR | CHRONIC [...] Health, | | | | | | [place] [address] | | | | + + + + + + + + | Specimen | + + | Blood | + + + + + + + | Performing | Address | City/State/Zipcode | Phone Number | | Organization | | | | + + + + + | [facility] | [address] | [place] [address] | [phone] | + + + + + Basic [...] 11 (L)Comment: GFR <60: | >60 | [facility] | | | GFR | CHRONIC [...] W | | | | | | [facility], | | | | | | [place] [address] | | | | + + + + + + + + | Specimen | + + | Blood | + + + + + + + | Performing | Address | City/State/Zipcode | Phone Number | | Organization | | | | + + + + + | [facility] | [address] | [place] [address] | [phone] | + + + + + Basic [...] [facility] | | | | | | [facility];[place], [place] | | | | | | [address] | | | | + + + + + + + + | Specimen | + + | Blood | + + + + + + + | Performing | Address | City/State/Zipcode | Phone Number | | Organization | | | | + + + + + | [facility] | [address] | [place] [address] | [phone] | + + + + + documented in this encounter Visit Diagnoses + + | Diagnosis | + + | Non-cardiogenic pulmonary edema - Primary Pulmonary congestion and hypostasis | + + | ESRD (end stage renal disease) ([facility]) End stage renal disease [...] | | | for platelets less than [address], | | + +---+ | | | [...]
--- OUTSIDE RECORDS SUMMARY | ~2019-01-06 | XMS | Encounter Summary ---
Demographics + + + | Address | [address] | | | [place] [address] | + + + | Home Phone [...] | | | | | [place] [address] | | + + + + + | Thania Mallory | ECON | [address] | | | | | [place] [address] | | + + + + + | Deidra Weldon | ECON | [address] | | | | | [place] | | | | | [address] | | + + + + + [...] | | | | | [facility] | [facility] | | | | | Rd [place], [place] | [place], [place] | | | | | [address] | [address] | | | | | [phone] | | | +--------+ + + + [...] Denise | | | | | | [place], [place] | | | | | | [address] | | | | | | [phone] | | | | | | | | +--------+ + + + + documented as of this encounter Visit Diagnoses Not on filedocumented in this encounter"
--- OUTSIDE RECORDS SUMMARY | 2019-01-06 19:32 | XMS ---
PreManage Notification: CONOR LOUISE [employer] Supervisor Events No recent Security Events currently on file CRITERIA MET - 6 ED Visits in 6 Months - [facility] - Has Care Guidelines - [facility] - 2 Visits in 30 Days CARE PROVIDERS TIEN NICHOLSON Internal Medicine 05/28/2018-Current PHONE: Unknown Karena has no Care Guidelines for this patient. Care History Medical/Surgical 11/29/2018 [facility] ED CASE MANAGEMENT CONSULT RECEIVED- CHW PROVIDED TO BASIL- W OF [facility] FOR HIGH RISK FOLLOW UP. 11/07/[address] [facility] Dr Nicholson has not seen Pt since 06/08/2018. 07/12/2018 \R\ Pt canceled appt w/ Dr Nicholson 07/18/2018 \R\ Pt [facility]OS in [facility] 08/18/2018 \R\ Pt canceled appt w/ Dr Nicholson 09/12/19. \R\ Pt was N/S for appt w/ Dr Nicholson 05/28/2018 [facility] - PATIENT HAS AN APT WITH PCP DR NICHOLSON ON 09/11/18. - PATIENT KILN CLEANER- DR HINSON- [phone] - Patient is currently established with [facility] [...] care. E.D. VISIT COUNT (12 MO.) [address] [facility] 18 [facility] [place] TOTAL 23 NOTE: Visits indicate total known visits. ED/C VISIT TRACKING (12 MO.) 01/06/2019 19:30 [facility] [place] [place] TYPE: Emergency COMPLAINT: - CHEST PAIN, SOB 01/02/2019 11:17 [facility] TYPE: Emergency COMPLAINT: - CHEST PAIN, SOB DIAGNOSES: - Chest pain, unspecified - Shortness of breath - Pleural effusion, not elsewhere classified 12/10/2018 22:01 [facility] TYPE: Emergency DIAGNOSES: - Personal history of [...] - Anemia in chronic kidney disease - Prsnl history of dis of the bld/bld-form org/immun mechnsm - Chronic pulmonary edema - Acute respiratory failure with hypoxia - Dependence on renal dialysis - Lobar pneumonia, unspecified organism - Hyperkalemia - Hypoxemia - Patient's noncompliance w ot medical treatment and regimen - Acute and chronic respiratory failure with hypercapnia - Fluid overload, unspecified - Other ascites 12/09/2018 23:16 [facility] [place] [place] TYPE: Emergency COMPLAINT: - CHEST PAIN, SOB DIAGNOSES: - Shortness of breath - Allergy status to narcotic agent status - Radiographic dye allergy status - Chronic pulmonary edema - Personal history of nicotine dependence - Other nursing home (current) drug therapy 11/28/2018 09:12 [facility] [place] [place] TYPE: Emergency COMPLAINT: - SOB, BLOOD PRESSURE PROBLEM DIAGNOSES: - Allergy status to narcotic agent status - Allergy status to oth drug/meds/biol subst status - Chronic kidney disease, unspecified - Radiographic dye allergy status - Shortness of breath - Pleural effusion, not elsewhere classified - Other intermediate card tender (current) drug therapy - Personal history of [...] - Radiographic dye allergy status - Other nursing home (current) drug therapy - Heart failure, unspecified - Allergy status to analgesic agent status - Shortness of breath - Hypertensive heart disease with heart failure 11/06/2018 08:24 [facility] [place] TYPE: Emergency COMPLAINT: - CHEST PAIN DIAGNOSES: - Other intermediate card tender (current) drug therapy - Allergy status to analgesic agent status - Pleural effusion, not elsewhere classified - Dependence on renal dialysis - Radiographic dye allergy status - Other chest pain - Pericardial effusion (noninflammatory) - Allergy status to narcotic agent status - Acute respiratory failure with hypoxia - Chronic pulmonary edema - Allergy status to oth drug/meds/biol subst status 10/17/2018 03:19 [facility] TYPE: Emergency DIAGNOSES: - Dependence on [...] Dependence on renal dialysis - Other intermediate card tender (current) drug therapy - 1 Hypertensive chronic kidney disease w stg 1-4/[facility] 08/20/2018 13:08 [facility] [place] TYPE: Emergency COMPLAINT: - CHEST PAIN, SOB DIAGNOSES: - Dependence on renal dialysis - Chronic kidney disease, unspecified - Allergy status to oth drug/meds/biol subst status - Chronic pulmonary edema - Other nursing home (current) drug therapy [...] specified abnormalities of plasma proteins - Other nursing home (current) drug therapy - Radiographic dye allergy status - Dependence on renal dialysis - Chest pain, unspecified 08/13/2018 00:00 [facility] TYPE: Emergency 07/18/2018 22:44 [facility] TYPE: Emergency DIAGNOSES: - Hypoxemia - [...] PAIN DIAGNOSES: - Other chest pain - 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 - Allergy status to oth drug/meds/biol subst status - End stage renal disease - Dependence on renal dialysis - Personal history of nicotine dependence - Fluid overload, unspecified - Radiographic dye allergy status - Heart failure, unspecified - Other intermediate card tender (current) drug therapy 06/12/2018 13:45 [facility] [place] TYPE: Emergency COMPLAINT: - SOB DIAGNOSES: - Shortness of breath - Radiographic dye allergy status - Unspecified asthma, uncomplicated - Hyperkalemia - Allergy status to narcotic agent status - Dependence on renal dialysis - Fluid overload, unspecified - Other nursing home (current) drug therapy - Allergy status to oth drug/meds/biol subst status - Chronic kidney disease, unspecified 06/11/2018 07:55 [facility] [place] TYPE: Emergency COMPLAINT: - DIFFICULTY BREATHING,VOMITING DIAGNOSES: - Chronic pulmonary edema - Shortness of breath - Other nursing home (current) drug therapy - Radiographic dye allergy status - 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 - Personal history of nicotine dependence 06/04/2018 06:07 [facility] [place] TYPE: Emergency COMPLAINT: - SOB DIAGNOSES: - Shortness of breath - Allergy status to oth drug/meds/biol subst status - Radiographic dye allergy status - Other intermediate card tender (current) drug therapy - Dyspnea, unspecified - Allergy status to narcotic agent status - Respiratory syncytial virus causing diseases classd elsr [facility] DIAGNOSES: - Acute respiratory distress - Chest pain, unspecified - Other ascites - Pleural effusion, not elsewhere classified 05/26/2018 07:23 [facility] TYPE: Emergency COMPLAINT: - FLU SYMPTOMS DIAGNOSES: - Allergy status to oth drug/meds/biol subst status - Other intermediate card tender (current) drug therapy - Radiographic dye allergy status - Dependence on renal dialysis - Pleural effusion, not elsewhere classified - Allergy status to narcotic agent status - Shortness of breath Plus 3 More Visits INPATIENT VISIT TRACKING (12 MO.) [facility] DIAGNOSES: - Other ascites - [...] Awaiting organ transplant status - Hyperkalemia - [facility] personal risk factors, not elsewhere classified - [...] hypoxia - Chronic pulmonary edema [facility]17[facility]2018 [facility] DIAGNOSES: - Shortness of breath - Pleural effusion, not elsewhere classified - End stage renal disease - Dependence on renal dialysis 08[facility]20/2018 17[facility] DIAGNOSES: - Pleural Effusion - Chronic pulmonary edema 07/18/2018 22:44 [facility] TYPE: General Medicine DIAGNOSES: - Hypoxemia - End stage renal disease - Pulmonary hypertension, unspecified - Chronic right heart failure - Personal history of other diseases of urinary system - Fever, unspecified - Pleural effusion, not elsewhere classified - Anemia in chronic kidney disease - Dependence on renal dialysis 05/26/2018 11:57 [facility] TYPE: General Medicine DIAGNOSES: - Acute [...] Oth personal risk factors, not elsewhere classified [email or web address]
[2019-01-06] MEDS ORDERED: BUSPIRONE HCL5 MG PO (20:30)
--- NOTE | 2019-01-07 17:39 | EKG ---
[facility] [address] [place], [place] [address] Signed Sinus tachycardia Left axis deviation Abnormal ECG When compared with ECG of 02-JAN-2019 11:26, QRS axis shifted left Nonspecific T wave abnormality, improved in Lateral leads Confirmed by REYNA POSEY DO ([id number]) on 01/07/2019 5:39:16 PM Electronically Signed By: REYNA POSEY DO 01/07/19 1739 PATIENT NAME: CONOR LOUISE Electrocardiogram DATE OF : [birth year] PHYSICIAN: REYNA POSEY DO REPORT #: [id number] REPORT IS CONFIDENTIAL AND NOT TO BE RELEASED WITHOUT AUTHORIZATION
== END 2019-01-07 00:30 | disposition short-term general hospital (02) ==
LOC: ED 19:29
DX: N18.6 End stage renal disease (principal); Z99.2 Dependence on renal dialysis; R06.00 Dyspnea, unspecified; E87.5 Hyperkalemia; Z87.891 Personal history of nicotine dependence; Z91.041 Radiographic dye allergy status; Z88.8 Allergy status to other drugs, medicaments and biological substances; Z88.5 Allergy status to narcotic agent; Z79.899 Other long term (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
CPT/HCPCS: 71046; 80048; 85025; 93005; 93010; 96374; 96375; 99285-25; J0610; J1815

== ENCOUNTER 2019-02-17 23:25 | Emergency (ER) | payer MEDICARE, OTHER ==
[~2019-02-17] VITALS: Ht 170.2 cm; Wt 79.4 kg
--- OUTSIDE RECORDS SUMMARY | ~2019-02-17 | XMS | Encounter Summary ---
Demographics + + + | Address | [address] | | | [place] [address] | + + + | Home Phone [...] | | | | | [place] [address] | | + + + + + | Thania Mallory | ECON | [address] | | | | | [place] [address] | | + + + + + | Deidra Weldon | ECON | [address] | | | | | [place] | | | | | [address] | | + + + + + Care Team Providers + +------+ + | Care Retort Condenser Attendant Name | Role | Phone | + +------+ + | No Pcp Per Patient | PCP | Unavailable | + +------+ + Reason for Visit + + + | Reason | Comments | + + + | Unos Listing | | + + + Encounter Details +--------+ + + + + | Date | Type | Department | Care Team | Description | +--------+ + + + + | 02/04/ | Telephone | Transplant | Kelsi Martinez | [facility] | | 2013 | | Coordinators [address] | RN [address] | | | | | [facility] | [facility] | | | | | Rd [place], [place] | [place], [place] | | | | | [address] | [address] | | | | | [phone] | | | +--------+ + + + [...] Denise | | | | | | [place], [place] | | | | | | [address] | | | | | | [phone] | | | | | | | | +--------+ + + + + documented as of this encounter Visit Diagnoses Not on filedocumented in this encounter"
--- OUTSIDE RECORDS SUMMARY | ~2019-02-17 | XMS | Encounter Summary ---
Demographics + + + | Address | [address] | | | [place] [address] | + + + | Home Phone [...] | | | | | [place] [address] | | + + + + + | Thania Mallory | ECON | [address] | | | | | [place] [address] | | + + + + + | Deidra Weldon | ECON | [address] | | | | | [place] | | | | | [address] | | + + + + + Care Team Providers + +------+ + | Care Reproductive Healthcare Assistant Name | Role | Phone | + +------+ + | Jonathan Alonso MD | PCP | | + +------+ + Encounter Details +--------+ + + + + | Date | Type | Department | Care Team | Description | +--------+ + + + + | 08/17/ | Abstract | Pediatric | Sudhakar Joy | | | 2015 | | Nephrology at | MD Emanuel [address] | | | | | [place] | [facility] | | | | | [facility] | [place], [place] | | | | | [address] | [address] | | | | | Mailcode: [id number] | [phone] | | | | | [place] | | | | | | [place], [place] | | | | | | [address] | | | | | | [phone] | | | +--------+ + + + [...] | 2022 | Encounter | | [address] | | | | | | [place], [place] | | | | | | [address] | | | | | | [phone] | | | | | | | [...] [facility] | [address] | [place] [address] | [phone] | | HOSPITAL | | | | + + + + + [facility] NEPHROLOGY EXTERNAL RESULTS PANEL (07/06/2015 1:12 PM [...] [facility] | [address] | [place] [address] | [phone] | | HOSPITAL | | | | + + + + + documented in this encounter Visit Diagnoses Not on filedocumented in this encounter"
--- OUTSIDE RECORDS SUMMARY | ~2019-02-17 | XMS | Encounter Summary ---
Demographics + + + | Address | [address] | | | [place] [address] | + + + | Home Phone | | + + + | Preferred Language | Unknown | + + + | Marital Status | Single | + + + | Islam Affiliation | Unknown | + + + | Race | Unknown | + + + | Ethnic Group | Unknown | + + + Author + + + | Author | [facility] | | | and Josephana | + + + | Organization | [facility] | | | and Josephana [...] Team Providers + +------+ + | Care Tripe Finisher Name | Role | Phone | + +------+ + PCP | Unavailable | + +------+ + Encounter Details +--------+ + + + + | Date | Type | Department | Care Team | Description | +--------+ + + + + | 04/10/ | Orders Only | RICARDO D[facility] | Jorje Camp | | | 2018 | | NEPHROLOGY [address] | M, DO [address] | | | | | [address] | [place] | | | | | [place], [place] | [place], [place] | | | | | [address] | [address] | | | | | [phone] | | | +--------+ + + + [...] Description | +--------+---------+ + + + | 03/05/ | Office | Pulmonology | Denny Alexander | | | 2019 | Visit | | Deny Briggs MD [address] | | | | | | [address] | | | | | | [place] [address] | | | | | | [phone] | | | | | | | | +--------+---------+ + + + documented as of this encounter Visit Diagnoses Not on filedocumented in this encounter"
--- OUTSIDE RECORDS SUMMARY | ~2019-02-17 | XMS | Encounter Summary ---
Demographics + + + | Address | [address] | | | [place] [address] | + + + | Home Phone | | + + + | Preferred Language | Unknown | + + + | Marital Status | Single | + + + | Jain Affiliation | Unknown | + + + | Race | Unknown | + + + | Ethnic Group | Unknown | + + + Author + + + | Author | [facility] | | | and [place]ana | + + + | Organization | [facility] | | | and Josephana [...] Team Providers + +------+ + | Care Inspecting Supervisor Name | Role | Phone | + +------+ + | Jonathan Alonso MD | PCP | | + +------+ + Reason for Visit +--------+ + | Reason | Comments | +--------+ + | DME | carlie, cmn, IHM | +--------+ + Encounter Details +--------+ + + + + | Date | Type | Department | Care Team | Description | +--------+ + + + + | 11/12/ | Telephone | [facility] | Silvia Rabago | DME (carlie, cmn, | | 2018 | | [address] | ABRIL Hernandez | [facility]) | | | | [place] | | | | | | [address] | | | | | | [phone] | | | +--------+ + + + [...] | | | | | [place] [address] | | | | | | [phone] | | | | | | | | +--------+---------+ + + + documented as of this encounter Visit Diagnoses Not on filedocumented in this encounter"
--- OUTSIDE RECORDS SUMMARY | ~2019-02-17 | XMS | Encounter Summary ---
Demographics + + + | Address | [address] | | | [place] [address] | + + + | Home Phone | | + + + | Preferred Language | Unknown | + + + | Marital Status | Single | + + + | Holiness Affiliation | Unknown | + + + | Race | Unknown | + + + | Ethnic Group | Unknown | + + + Author + + + | Author | [facility] | | | and Josephana | + + + | Organization | [facility] | | | and Josephana [...] Team Providers + +------+ + | Care Live Source Operator Name | Role | Phone | + +------+ + PCP | Unavailable | + +------+ + Encounter Details +--------+ + + + + | Date | Type | Department | Care Team | Description | +--------+ + + + + | 08/25/ | Off-Site | [facility] | Jorje Camp | ESRD (end stage | | 2015 | Visit | NEPHROLOGY [address] | M, DO [address] | renal disease) ([facility]) | | | | [address] | [place], [address] | (Primary Dx); | | | | [place], [place] | [place], [place] | Anemia in ESRD | | | | [address] | [address] | (end-stage renal | | | | [phone] | | disease) ([facility]) | +--------+ + + + + Social [...] + + + | Blood Pressure | 111/64 | 08/25/2014 4:31 PM | | | | | PDT | | + + + + + | Pulse | - | - | | + + + + + | Temperature | 35.4 C (95.7 F) | 08/25/2014 4:31 PM | | | | | PDT [...] encounter Progress Notes Jorje Camp DO - 09/20/2014 4:33 PM PDT Subjective: DIALYSIS NOTE Patient ID: Dara Weldon is a 19 y.o. female. 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 She also has anemia secondary to CKD, SHPTH, centripetal obesity . She a ppears to be very sedentary when describing her lifestyle. She does come for all her treatm ents, however, I cannot completely ascertain how closely she follows a renal diet? Outpatient Prescriptions Marked as Taking for the 08/25/14 encounter (Off-Site Visit) with Camille Camp DO Medication Sig Dispense Refill albuterol 90 mcg/puff inhaler Inhale 2 puffs into the lungs every 6 hours as needed for Wheezing. 1 Inhaler 11 cinacalcet (SENSIPAR) 90 MG tablet Take 1 tablet by mouth Daily (with dinner). 90 table t 4 doxercalciferol (HECTOROL) 2 mcg/mL injection Inject 1 mL into the vein Three times a w [place]. iron sucrose (VENOFER) 20 mg/mL injection Inject 2.5 mLs into the vein Once a week. renal multivitamin (DIALYVITE, VOL-CARE) TABS Take 1 tablet by mouth every evening. 90 tablet 4 sevelamer carbonate (RENVELA) 800 mg tablet Take 4 tablets by mouth with meals and 3 ta blets with snacks 630 tablet 4 Allergies Allergen Reactions Adhesive & Tape Rash Certain tapes Morphine Itching and Rash Objective: BP 111/64 mmHg | Temp(Src) 35.4 C (95.7 F) EDW 99.5 kg Physical Exam Heart: Regular rate and rhythm with no S3, S4, murmur or rub. Lungs: CTA bilaterally. No rales or wheezes. Abdomen: Soft, obese, nontender, normoactive bowel sounds. Extremities: No clubbing, cyanosis, or edema. (+) Left arm AVF is approximately 3-4 mm wi th a (+) bruit. LAB: BUN 57, Cr 9.8, a +4.1, HCO3 19, albumin 3.7, calcium 9.1, phosphorus 8.6, PTH 605, Hb 12.9, KT/V = 2.2. Assessment: 1. ESRD--overall, she appears stable on 5 hours, 2K +, R 18, QB 475, daily 600, thrice wee kly. 2. Hypertension--good control from review of her treatment data. 3. SHPTH--PTH control is suboptimal and her phosphorus has been above target for some time . I counseled her at length about this. 4. Nutrition--albumin is decreased slightly. 5. Transplantation--overall think she would be an excellent candidate. 6. Anemia-- Hb is above target, therefore EPO has been on hold. Plan: 1. Will continue to hold her EPO until the Hb is <11.0 g/dl. 2. I counseled her that elevated phosphorus, and PTH can lead to increased cardiovascular mortality long-term. I told her that this is basically very important given her young age. 3. She will be rechecked with the Nephrology Team in 2 weeks. CC: Carson Fina Joy MD, Renal Transplant Clinic, [facility] signed by Jorje Camp DO at 09/20/2014 4:38 PM PDTdocumented in this encount er Plan of Treatment +--------+---------+ + + + | Date | Type | Specialty | Care Team | Description | +--------+---------+ + + + | 03/05/ | Office | Pulmonology | Denny Alexander | | | 2018 | Visit | | Deny Briggs MD [address] | | | | | | [address] | | | | | | [place] [address] | | | | | | [phone] | | | | | | | | +--------+---------+ + + + documented as of this encounter Visit Diagnoses + + | Diagnosis | + + | ESRD (end stage renal disease) (HCC) - Primary End stage renal disease | + + | Anemia in ESRD (end-stage renal disease) (HCC) Anemia in chronic kidney disease | + + documented in this encounter"
--- OUTSIDE RECORDS SUMMARY | ~2019-02-17 | XMS | Encounter Summary ---
Demographics + + + | Address | [address] | | | [place] [address] | + + + | Home Phone | | + + + | Preferred Language | Unknown | + + + | Marital Status | Single | + + + | Hindu Affiliation | Unknown | + + + | Race | Unknown | + + + | Ethnic Group | Unknown | + + + Author + + + | Author | [facility] | | | and Josephana | + + + | Organization | [facility] | | | and Josephana | + + + | Address | Unknown | + + + | Phone | Unavailable | + + + Support + + +---------+ + | Name | Relationship | Address | Phone | + + +---------+ + | Thania Mallory | ECON | Unknown | | + + +---------+ + | Saundra Jasso ECON | Unknown | | + + +---------+ + Care Team Providers + +------+ + | Care Tile Grader Name | Role | Phone | + +------+ + | Jonathan Alonso MD | PCP | | + +------+ + Encounter Details +--------+ + + + + | Date | Type | Department | Care Team | Description | +--------+ + + + + | 06/11/ | Abstract | [facility] | [facility] | | | 2019 | | [facility] | MD Linda [address] | | | | | KIDNEY TRANSPLANT | [address] [place], | | | | | [address] [place] | [place] [address] | | | | | [address] [place], [place] | [phone] | | | | | [address] | | | | | | [phone] | | | +--------+ + + + [...] [address] | | | | | | [place] [address] | | | | | | [phone] | | | | | | | | +--------+---------+ + + + documented as of this encounter Visit Diagnoses Not on filedocumented in this encounter"
--- OUTSIDE RECORDS SUMMARY | ~2019-02-17 | XMS | Encounter Summary ---
Demographics + + + | Address | [address] | | | [place] [address] | + + + | Home Phone | | + + + | Preferred Language | Unknown | + + + | Marital Status | Single | + + + | Sikh Affiliation | Unknown | + + + | Race | Unknown | + + + | Ethnic Group | Unknown | + + + Author + + + | Author | [facility] | | | and Josephana | + + + | Organization | [facility] | | | and Josephana [...] Team Providers + +------+ + | Care Legal Financial Specialist Name | Role | Phone | + +------+ + PCP | Unavailable | + +------+ + Encounter Details +--------+ + + + + | Date | Type | Department | Care Team | Description | +--------+ + + + + | /18/ | Orders Only | [facility] | Ibarra, Daniela W, | ESRD (end stage | | 2015 | | NEPHROLOGY [address] | [address] | renal disease) ([facility]) | | | | [address] | [address] [place] | (Primary Dx); | | | | [place], [place] | [place] [address] | Secondary | | | | [address] | [phone] | hyperparathyroidism | | | | [phone] | | ([facility]); | | | | | | Hyperphosphatemia | +--------+ + + + + Social [...] [address] | | | | | | [place] [address] | | | | | | [phone] | | | | | | | | +--------+---------+ + + + documented as of this encounter Visit Diagnoses + + | Diagnosis | + + | ESRD (end stage renal disease) (HCC) - Primary End stage renal disease | + + | Secondary hyperparathyroidism (HCC) Secondary hyperparathyroidism (of renal origin) | + + | Hyperphosphatemia Disorders of phosphorus metabolism | + + documented in this encounter"
--- OUTSIDE RECORDS SUMMARY | ~2019-02-17 | XMS | Encounter Summary ---
Demographics + + + | Address | [address] | | | [place] [address] | + + + | Home Phone [...] + + | Author | [facility] | | | and Josephana | + + + | Organization | [facility] | | | and [...] Team Providers + +------+ + | Care Belly Dump Driver Name | Role | Phone | + +------+ + PCP | Unavailable | + +------+ + Encounter Details +--------+ + + + + | Date | Type | Department | Care Team | Description | +--------+ + + + + | 10/07/ | Orders Only | [facility] | Jorje Camp | | | 2013 | | NEPHROLOGY [address] | M, DO [address] | | | | | [address] | [place], [address] | | | | | [place], [place] | [place], [place] | | | | | [address] | [address] | | | | | [phone] | | | +--------+ + + + [...] [address] | | | | | | [place] [address] | | | | | | [phone] | | | | | | | | +--------+---------+ + + + documented as of this encounter Visit Diagnoses Not on filedocumented in this encounter"
--- OUTSIDE RECORDS SUMMARY | ~2019-02-17 | XMS | Encounter Summary ---
Demographics + + + | Address | [address] | | | [place] [address] | + + + | Home Phone | | + + + | Preferred Language | Unknown | + + + | Marital Status | Single | + + + | Worship Affiliation | Unknown | + + + [...] | | | | | [place] [address] | | + + + + + | Thania Mallory | ECON | [address] | | | | | [place] [address] | | + + + + + | Deidra Weldon | ECON | [address] | | | | | [place] | | | | | [address] | | + + + + + Care Team Providers + +------+ + | Care Tufting Machine Fixer Name | Role | Phone [...] Nephrology at | MD Emanuel [address] [facility] | | | | | [place] | [facility] | | | | | [facility] | [place], [place] | | | | | [address] [facility] | [address] | | | | | Mailcode: [id number] | [phone] | | | | | Alexander | | | | | | [place], [place] | | | | | | [address] | | | | | | [phone] | | | +--------+ + + + [...] Ave | | | | | | [place], [place] | | | | | | [address] | | | | | | [phone] | | | | | | | [...] [address] | [place] [address] | [phone] | | HOSPITAL | | | | [...] | [address] | [place] [address] | [phone] | | HOSPITAL | | | | + + + + + documented in this encounter Visit Diagnoses Not on filedocumented in this encounter"
--- OUTSIDE RECORDS SUMMARY | ~2019-02-17 | XMS | Encounter Summary ---
Demographics + + + | Address | [address] | | | [place] [address] | + + + | Home Phone [...] | | | | | [place] [address] | | + + + + + | Thania Mallory | ECON | [address] | | | | | [place] [address] | | + + + + + | Deidra Weldon | ECON | [address] | | | | | [place] | | | | | [address] | | + + + + + Care Team Providers + +------+ + | Care Sales Office Assistant Name | Role | Phone | [...] Nephrology at | RN [address] [facility] | | | | | [place] | [facility] | | | | | [facility] | [place], [place] | | | | | [address] [place] [address] Dr | [address] | | | | | Mailcode: DCH7 | | | | | | Alexander | | | | | | [place], [place] | | | | | | [address] | | | | | | [phone] | | | +--------+ + + + [...] | 3 | Encounter | | [address] | | | | | | [place], [place] | | | | | | [address] | | | | | | [phone] | | | | | | | | +--------+ + + + + documented as of this encounter Visit Diagnoses + + | Diagnosis | + + | 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
--- OUTSIDE RECORDS SUMMARY | ~2019-02-17 | XMS | Encounter Summary ---
Demographics + + + | Address | [address] | | | [place] [address] | + + + | Home Phone | | + + + | Preferred Language | Unknown | + + + | Marital Status | Single | + + + | Mu-Ism Affiliation | Unknown | + + + | Race | Unknown | + + + | Ethnic Group | Unknown | + + + Author + + + | Author | [facility] | | | and Josephana | + + + | Organization | [facility] | | | and [...] Team Providers + +------+ + | Care Professor Of Art Name | Role | Phone | + [...] | stage renal | [address] | [address] [place] [address] | | | | | disease) | Shun Griffin | [place] | | | | | ([facility]) | [address] | [address] [place] | | | | | Anemia in | [place], [place] | [place] | | | | | ESRD | [address] | [address] Phone: | | | | | (end-stage | Phone: | [phone] | | | | | renal | [phone] | Fax: | | | | | disease) | Fax: | [phone] | | | | | ([facility]) | [phone] | | | | | | Procedures | | | | | | | [place] OFFICE | | | | | | | OUTPATIENT | | | | | | | VISIT 25 | | | | | | | MINUTES | | | +--------+--------+ + + + + Encounter Details +--------+ + + + + | Date | Type | Department | Care Team | Description | +--------+ + + + + | 12/29/ | Off-Site | [facility] | Jorje Camp | ESRD (end stage | | 2015 | Visit | NEPHROLOGY [address] | M, DO [address] | renal disease) ([facility]) | | | | [address] | [place], [address] | (Primary Dx); | | | | [place], [place] | [place], [place] | Anemia in ESRD | | | | [address] | [address] | (end-stage renal | | | | [phone] | | disease) ([facility]) | +--------+ + + + + Social [...] + + + | Blood Pressure | 112/75 | 12/29/2014 5:01 PM | | | | | PDT | | + + + + + | Pulse | - | - | | + + + + + | Temperature | 36.5 C (97.7 F) | 12/29/2014 5:01 PM | | | | | PDT [...] encounter Progress Notes Jorje Camp DO - 01/20/2015 5:02 PM PST Subjective: DIALYSIS NOTE Patient ID: Dara Weldon is a 19 y.o. female. 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 She also has anemia secondary to CKD, SHPTH, centripetal obesity . Outpatient Prescriptions Marked as Taking for the 12/29/14 encounter (Off-Site Visit) with Jorje Camp DO Medication Sig Dispense Refill albuterol 90 mcg/puff inhaler Inhale 2 puffs into the lungs every 6 hours as needed for Wheezing. 1 Inhaler 11 cinacalcet (SENSIPAR) 90 MG tablet Take 1 tablet by mouth Daily (with dinner). 90 table t 4 doxercalciferol (HECTOROL) 2 mcg/mL injection Inject 2.5 mcg into the vein Three times a week. Per dialysis clinic protocol epoetin jenna (EPOGEN, PROCRIT) 10,000 units/mL injection Inject 1,000 Units into the ve in Three times a week. Per dialysis clinic protocol 1 mL iron sucrose (VENOFER) 20 mg/mL injection Inject 2.5 mLs into the vein Once a week. renal multivitamin (DIALYVITE, VOL-CARE) TABS Take 1 tablet by mouth every evening. 90 tablet 4 sertraline (ZOLOFT) 25 mg tablet Take 1 tablet by mouth Daily. 30 tablet 0 sevelamer carbonate (RENVELA) 800 mg tablet Take 4 tablets by mouth with meals and 3 ta blets with snacks 630 tablet 4 Current Facility-Administered Medications for the 12/29/14 encounter (Off-Site Visit) with Jorje Camp DO Medication Dose Route Frequency Provider Last Rate Last Dose traMADol (ULTRAM) tablet 50 mg 50 mg Oral Q12H PRN Jorje Camp DO Allergies Allergen Reactions Adhesive & Tape Rash Certain tapes Morphine Itching and Rash Objective: BP 112/75 mmHg | Temp(Src) 36.5 C (97.7 F) EDW 101 kg Physical Exam Heart: Regular rate and rhythm with no S3, S4, murmur or rub. Lungs: CTA bilaterally. No rales or wheezes. Abdomen: Soft, obese, nontender, normoactive bowel sounds, no CVA tenderness.. Extremities: No clubbing, cyanosis, or edema. QB 400 at left arm AVF. LAB: BUN 40, Cr 9.5, K+ 4.1, HCO3 21, Ca++ 9.3, PO4 6.9, PTH 563, Alb 3.9, Hb 12.0, eKT/V = 1.76. Assessment: 1. ESRD-- she appears well dialyzed clinically on the current Rx. 2. Hypertension-- BP control is adequate. She still has some occasional large, interdialy tic weight gains. 3. SHPTH--She is doing better with her weekly PO4 control. PTH is improved. 4. Nutrition-- her appetite is excellent on current Rx. 5. Transplantation--I now concur that she would be at risk for possible graft loss due to compliance and psychosocial reasons. Although, she has shown modest improvement in the last 21 days. 6. Anemia--Will need to hold the EPO until the Hb is < 11.0 g/dl, while rechecking the Hb weekly. Will recheck her iron profile next quarter. 7. low back pain--in remission, this month. Plan: 1. I encouraged Dara that she is doing better with daily PO4 control. 2. I attempted to educate her that larger fluid removal per dialysis sessions, is associat ed with worse outcomes. 3. She appears to be responding well to EPO. Will hold it for now, as above. Will rechec k her in 2 weeks. CC: Lincoln Fina Joy MD, Renal Transplant Clinic, [facility] signed by Jorje Camp DO at 01/20/2015 5:14 PM PSTdocumented in this encount er Plan of Treatment +--------+---------+ + + + | Date | Type | Specialty | Care Team | Description | +--------+---------+ + + + | 03/05/ | Office | Pulmonology | Denny Alexander | | | 2019 | Visit | | Deny Briggs MD [address] | | | | | | [address] | | | | | | [place] [address] | | | | | | [phone] | | | | | | | | +--------+---------+ + + + documented as of this encounter Visit Diagnoses + + | Diagnosis | + + | ESRD (end stage renal disease) ([facility]) - Primary End stage renal disease | + + | Anemia in ESRD (end-stage renal disease) ([facility]) Anemia in chronic kidney disease | + + documented in this encounter"
--- OUTSIDE RECORDS SUMMARY | ~2019-02-17 | XMS | Encounter Summary ---
Demographics + + + | Address | [address] | | | [place] [address] | + + + | Home Phone | | + + + | Preferred Language | Unknown | + + + | Marital Status | Single | + + + | Christianity Affiliation | Unknown | + + + | Race | Unknown | + + + | Ethnic Group | Unknown | + + + Author + + + | Author | [facility] | | | and Josephana | + + + | Organization | [facility] | | | and Josephana | [...] Team Providers + +------+ + | Care Perfect Binder Operator Name | Role | Phone | [...] | [place], | | | | | Anemia in | Sudhakar Castellanos, | Jorje Obrien DO | | | | | chronic | MD [address] | [address] | | | | | kidney | [address] | [place] | | | | | disease([address] | [address] [place] | | | | | [address]) End | [place], [place] | [place], [place] | | | | | stage renal | [address] | [address] Phone: | | | | | disease | Phone: | [phone] | | | | | ([facility]) | [phone] | Fax: | | | | | Infection | Fax: | [phone] | | | | | and | [phone] | | | | | | inflammatory | | | | | | | reaction | | | | | | | due to | | | | | | | peritoneal | | | | | | | dialysis | | | | | | | catheter | | | | | | | Procedures | | | | | | | [facility] OFFICE | | | | | | | OUTPATIENT | | | | | | | VISIT 25 | | | | | | | MINUTES | | | +--------+--------+ + + + + Encounter Details +--------+ + + + + | Date | Type | Department | Care Team | Description | +--------+ + + + + | 10/28/ | Off-Site | [facility] [place] | Jorje Camp | Anemia in ESRD | | 2014 | Visit | NEPHROLOGY [address] | M, DO [address] | (end-stage renal | | | | [address] | [place], [address] | disease) ([facility]) | | | | [place] | [place] | (Primary Dx); ESRD | | | | [address] | [address] | (end stage renal | | | | [phone] | | disease) ([facility]) | +--------+ + + + + [...] + + + | Blood Pressure | 117/45 | 10/28/2013 1:48 PM | | | | | PDT | | + + + + + | Pulse | - | - | | + + + + + | Temperature | 35.8 C (96.5 F) | 10/28/2013 1:48 PM | | | | | PDT [...] + + documented in this encounter Progress Jorje Grissom DO - 11/16/2013 1:47 PM PDT Subjective: DIALYSIS NOTE Patient ID: Dara Weldon is a 18 y.o. female. HPI Comments: Monthly dialysis visit for this very pleasant , 18 YO white female who appare ntly developed CKD at an early age due to progressive HSP, and initially was started on CAPD , but apparently had to transition to outpatient HD due to some peritonitis. She also has a nemia secondary to CKD, SHPTH, centripetal obesity, and is active and living independently w ith her parents. She states that she is matriculating well through her senior year of [employer] and enjoys her school. Outpatient Prescriptions Marked as Taking for the 10/28/13 encounter (Off-Site Visit) with Camille Camp, DO Medication Sig Dispense Refill cholecalciferol (VITAMIN D-3) 1,000 units tablet Take 1,000 Units by mouth Daily. cinacalcet (SENSIPAR) 30 mg tablet Take 30 mg by mouth Daily. [DISCONTINUED] Doxercalciferol (HECTOROL IV) Inject 1 mcg into the vein Three times a w [place]. Epoetin Andres (EPOGEN IJ) 4,400 Units by IV Push route Three times a week. Iron Sucrose (VENOFER IV) Inject 100 mg into the vein Once a week. renal multivitamin (DIALYVITE, VOL-CARE) TABS Take 1 tablet by mouth every evening. 90 tablet 4 sevelamer carbonate (RENVELA) 800 mg tablet Take 2,400 mg by mouth 3 times daily (with meals). 3 tablets with meals and 2 tablets with snacks No Known Allergies Review of Systems Objective: There were no vitals taken for this visit. EDW 92.5 kg Physical Exam Heart: Regular rate and rhythm with no S3, S4, murmur or rub. Lungs: CTA bilaterally. No rales or wheezes. Abdomen: Soft, obese, nontender, normoactive bowel sounds. Extremities: No clubbing, cyanosis, or edema. LAB: BUN 32, Cr 9.82, K+ 4.0, HCO3 29, Ca++ 8.5, PO4 3.6, PTH 74, Alb 4.1, Hb 10.6, T Sat. = 49 %, Ferritin 188, eKT/V = 1.63. Assessment: 1. ESRD--she appears well dialyzed on 2K+, QB 400, QD 600, G15R, thrice weekly. 2. Hypertension--the BP appears well controlled from review of the most recent treatment d juana in [place]. 3. SHPTH--her PTH and PO4 control are excellent. 4. Nutrition--her appetite is excellent on current Rx. 5. Transplantation--I think that she is mature and appropriate for her age, and would make an excellent candidate for a renal allograft from the information available. 6. Anemia--Her Hb appears stable on the current EPO algorithm. She may need additional ir on with time, for the ferritin. Plan: 1. She is very cooperative here in clinic, timely, and compliant with her diet and treatme nts. 2. Her nutrition appears stable on her current Rx. 3. I think that she would make an excellent candidate for a renal allograft. CC: [facility], [facility] documented in thi s encounter Plan of Treatment +--------+---------+ + + + | Date | Type | Specialty | Care Team | Description | +--------+---------+ + + + | 03/05/ | Office | Pulmonology | Denny Alexander | | | 2018 | Visit | | Deny Briggs MD [address] | | | | | | [address] | | | | | | [place] [address] | | | | | | [phone] | | | | | | | | +--------+---------+ + + + documented as of this encounter Visit Diagnoses + + | Diagnosis | + + | Anemia in ESRD (end-stage renal disease) (HCC) - Primary Anemia in chronic kidney | | disease | + + | ESRD (end stage renal disease) (HCC) End stage renal disease | + + documented in this encounter"
--- OUTSIDE RECORDS SUMMARY | ~2019-02-17 | XMS | Encounter Summary ---
Demographics + + + | Address | [address] | | | [place] [address] | + + + | Home Phone [...] | | | | | [place] [address] | | + + + + + | Thania Mallory | ECON | [address] | | | | | [place] [address] | | + + + + + | Deidra Weldon | ECON | [address] | | | | | [place] | | | | | [address] | | + + + + + Care Team Providers + +------+ + | Care Fork Truck Driver Name | Role | Phone [...] | | | MD [address] | [facility] | | | | | | Keven | Mailcode: | | | | | | Hospital | [facility] | | | | | | [address] | [place] | | | | | | [address] | [place], [place] | | | | | | [place] | [address] | | | | | | [place] | Phone: | | | | | | [address] | [phone] | | | | | | Phone: | | | | | | | [phone] | | | | | | | Fax: | | | | | | | [phone] | | +--------+--------+ + + + + Encounter Details +--------+---------+ + + + | Date | Type | Department | Care Team | Description | +--------+---------+ + + + | 01/20/ | Office | Specialty Clinics | Sudhakar Joy | HSP | | 2014 | Visit | at [facility] [address] MD [address] [facility] | (David | | | | [place] Mailcode: | [address] | purpura) nephritis | | | | [facility] [place] | [place], [place] | (Primary Dx); | | | | [place], [place] | [address] | Allergic purpura- | | | | [address] | [phone] | MEDICARE 2191; | | | | [phone] | | Anemia of chronic | | | | | | kidney failure, | | | | | | stage 5 (HCC); | | [...] came off the transplant list after sh robina moved out of her dad's house. She [...] [address] Mail code [facility] [place], [place] [address] documented in this encounter Plan of Treatment +--------+ + + + + | Date | Type | Specialty | Care Team | Description | +--------+ + + + + | 05/04/ | Hospital | Adult Acute Care | El Starr MD | | | 2022 | Encounter | | [address] | | | | | | [place], [place] | | | | | | [address] | | | | | | [phone] | | | | | | | [...]
--- OUTSIDE RECORDS SUMMARY | ~2019-02-17 | XMS | Encounter Summary ---
Demographics + + + | Address | [address] | | | [place] [address] | + + + | Home Phone [...] + | Author | [facility] | | | and [place] | + + + | Organization | [facility] | | | and [place]ana [...] Team Providers + +------+ + | Care Traffic Worker Name | Role | Phone | + +------+ + PCP | Unavailable | + +------+ + Reason for Visit + + + | Reason | Comments | + + + | Medication Refill | | + + + Encounter Details +--------+--------+ + + + | Date | Type | Department | Care Team | Description | +--------+--------+ + + + | 10/10/ | Refill | [facility] [place] | Jorje Camp | Medication Refill | | 2017 | | NEPHROLOGY [address] | M, DO [address] | | | | | [address] | [place] | | | | | [place], [place] | [place], [place] | | | | | [address] | [address] | | | | | [phone] | | | +--------+--------+ + + + [...] | | | | | [place] [address] | | | | | | [phone] | | | | | | | | +--------+---------+ + + + documented as of this encounter Visit Diagnoses Not on filedocumented in this encounter"
--- OUTSIDE RECORDS SUMMARY | ~2019-02-17 | XMS | Encounter Summary ---
Demographics + + + | Address | [address] | | | [place] [address] | + + + | Home Phone [...] | | | | | [place] [address] | | + + + + + | Thania Mallory | ECON | [address] | | | | | [place] [address] | | + + + + + | Deidra Weldon | ECON | [address] | | | | | [place] | | | | | [address] | | + + + + + Care Team Providers + +------+ + | Care Ultrasound Technol Name | Role | Phone | + +------+ + | Jonathan lAonso MD | PCP | | + +------+ + Reason for Visit + + + | Reason | Comments | + + + | Transplant Form | | | Update | | + + + Encounter Details +--------+ + + + + | Date | Type | Department | Care Team | Description | +--------+ + + + + | 06/22/ | Documentati | Transplant | AsafKelsi thompson, | Transplant Form | | 2016 | on | Coordinators [address] | RN [address] | Update | | | | [address] [facility] | [facility] | | | | | Rd [place], [place] | [place], [place] | | | | | [address] | [address] | | | | | [phone] | | | +--------+ + + + [...] Denise | | | | | | [place], [place] | | | | | | [address] | | | | | | [phone] | | | | | | | | +--------+ + + + + documented as of this encounter Visit Diagnoses Not on filedocumented in this encounter"
--- OUTSIDE RECORDS SUMMARY | ~2019-02-17 | XMS | Encounter Summary ---
Demographics + + + | Address | [address] | | | [place] [address] | + + + | Home Phone | | + + + | Preferred Language | Unknown | + + + | Marital Status | Single | + + + | Church Affiliation | Unknown | + + + | Race | Unknown | + + + | Ethnic Group | Unknown | + + + Author + + + | Author | [facility] | | | and [place] | + + + | Organization | [facility] | | | and [place] | [...] Team Providers + +------+ + | Care Tread Booker Name | Role | Phone | + +------+ + PCP | Unavailable | + +------+ + Encounter Details +--------+ + + + + | Date | Type | Department | Care Team | Description | +--------+ + + + + | 01/09/ | Orders Only | [facility] | Ibarra, Daniela W, | ESRD (end stage | | 2015 | | NEPHROLOGY [address] | [address] | renal disease) ([facility]) | | | | [address] | [address] [place] | (Primary Dx); | | | | [place], [place] | [place] [address] | Depression | | | | [address] | [phone] | | | | | [phone] | | | +--------+ + + + [...] [address] | | | | | | [place] [address] | | | | | | [phone] | | | | | | | | +--------+---------+ + + + documented as of this encounter Visit Diagnoses + + | Diagnosis | + + | ESRD (end stage renal disease) (HCC) - Primary End stage renal disease | + + | Depression Depressive disorder, not elsewhere classified | + + documented in this encounter"
--- OUTSIDE RECORDS SUMMARY | ~2019-02-17 | XMS | Encounter Summary ---
Demographics + + + | Address | [address] | | | [place] [address] | + + + | Home Phone [...] | | | | | [place] [address] | | + + + + + | Thania Mallory | ECON | [address] | | | | | [place] [address] | | + + + + + | Deidra Weldon | ECON | [address] | | | | | [place] | | | | | [address] | | + + + + + Care Team Providers + +------+ + | Care On Site Property Manager Name | Role | Phone | [...] + + | 10/16/ | Telephone | Transplant | AsafKelsi thompson, | Other (Transplant | | 2013 | | Coordinators [address] | RN [address] | recommendations) | | | | [address] [facility] | [facility] | | | | | Rd [place], [place] | [place], [place] | | | | | [address] | [address] | | | | | [phone] | | | +--------+ + + + [...] Denise | | | | | | [place] | | | | | | [address] | | | | | | [phone] | | | | | | | | +--------+ + + + + documented as of this encounter Visit Diagnoses Not on filedocumented in this encounter"
--- OUTSIDE RECORDS SUMMARY | ~2019-02-17 | XMS | Encounter Summary ---
Demographics + + + | Address | [address] | | | [place] [address] | + + + | Home Phone [...] Author + + + | Author | [facility] | | | and [place] | + + + | Organization | [facility] | | | and [place] [...] Providers + +------+ + | Care Solar Hot Water Installer Name | Role | Phone | + +------+ + PCP | Unavailable | + +------+ + Encounter Details +--------+---------+ + + + | Date | Type | Department | Care Team | Description | +--------+---------+ + + + | 07/10/ | E-Visit | [facility] | Jorje Camp | | | 2017 | | NEPHROLOGY [address] | M, DO [address] | | | | | [address] | [place] | | | | | [place], [place] | [place], [place] | | | | | [address] | [address] | | | | | [phone] | | | +--------+---------+ + + + [...] [address] | | | | | | [place] [address] | | | | | | [phone] | | | | | | | | +--------+---------+ + + + documented as of this encounter Visit Diagnoses + + | Diagnosis | + + | ESRD (end stage renal disease) (HCC) - Primary End stage renal disease | + + documented in this encounter"
--- OUTSIDE RECORDS SUMMARY | ~2019-02-17 | XMS | Encounter Summary ---
Demographics + + + | Address | [address] | | | [place] [address] | + + + | Home Phone [...] | | | | | [place] [address] | | + + + + + | Thania Mallory | ECON | [address] | | | | | [place] [address] | | + + + + + | Deidra Weldon | ECON | [address] | | | | | [place] | | | | | [address] | | + + + + + Care Team Providers + +------+ + | Care Brick Stacker Name | Role | Phone | + +------+ + | No Pcp Per Patient | PCP | Unavailable | + +------+ + Reason for Visit +--------+ + | Reason | Comments | +--------+ + | Other | Immunizations | +--------+ + Encounter Details +--------+ + + + + | Date | Type | Department | Care Team | Description | +--------+ + + + + | 11/21/ | Telephone | Transplant | Kelsi Martinez, | Other | | 2013 | | Coordinators [address] | RN [address] | (Immunizations) | | | | [address] [facility] | [facility] | | | | | Rd [place], [place] | [place], [place] | | | | | [address] | [address] | | | | | [phone] | | | +--------+ + + + [...] Denise | | | | | | [place], [place] | | | | | | [address] | | | | | | [phone] | | | | | | | | +--------+ + + + + documented as of this encounter Visit Diagnoses Not on filedocumented in this encounter"
--- OUTSIDE RECORDS SUMMARY | ~2019-02-17 | XMS | Encounter Summary ---
Demographics + + + | Address | [address] | | | [place] [address] | + + + | Home Phone [...] | Author | [facility] | | | and [place] | + + + | Organization | [facility] | | | and [place] [...] Providers + +------+ + | Care Restaurant Area Director Name | Role | Phone | + +------+ + PCP | Unavailable | + +------+ + Encounter Details +--------+ + + + + | Date | Type | Department | Care Team | Description | +--------+ + + + + | 09/19/ | Orders Only | [facility] | Daniela Ibarra, | | | 2016 | | NEPHROLOGY [address] | MD [address] | | | | | [address] | [address] [place] | | | | | [place], [place] | [place] [address] | | | | | [address] | [phone] | | | | | [phone] | | | +--------+ + + + [...] [address] | | | | | | [place] [address] | | | | | | [phone] | | | | | | | | +--------+---------+ + + + documented as of this encounter Visit Diagnoses Not on filedocumented in this encounter"
--- OUTSIDE RECORDS SUMMARY | ~2019-02-17 | XMS | Encounter Summary ---
Demographics + + + | Address | [address] | | | [place] [address] | + + + | Home Phone | | + + + | Preferred Language | Unknown | + + + | Marital Status | Single | + + + | Mormonism Affiliation | Unknown | + + + | Race | Unknown | + + + | Ethnic Group | Unknown | + + + Author + + + | Author | [facility] | | | and [place] | + + + | Organization | [facility] | | | and [place] | [...] Team Providers + +------+ + | Care R Programmer Name | Role | Phone | [...] | stage renal | [address] | [address] [place] [address] | | | | | disease) | [address]un [address] | [place] | | | | | (HCC) | [address] | [address] [place] | | | | | Anemia in | [place], [place] | [place], [place] | | | | | ESRD | [address] | [address] Phone: | | | | | (end-stage | Phone: | [phone] | | | | | renal | [phone] | Fax: | | | | | disease) | Fax: | [phone] | | | | | ([facility]) | [phone] | | | | | | Procedures | | | | | | | [place] ESRD | | | | | | [...] M, DO [address] | renal disease) ([facility]) | | | | [address] | [place] | (Primary Dx) | | | | [place], [place] | [place], [place] | | | | | [address] | [address] | | | | | [phone] | | | +--------+ + + + [...] epoetin jenna (EPOGEN,PROCRIT) 3,000 units/mL injection Inject 5,000 Units [...] to fall on the Parsabiv, IV? : Hiram Fina Alonso MD, PhD documented in thi [...] [address] | | | | | | [place] [address] | | | | | | [phone] | | | | | | | | +--------+---------+ + + + documented as of this encounter Visit Diagnoses + + | Diagnosis | + + | ESRD (end stage renal disease) (HCC) - Primary End stage renal disease | + + documented in this encounter
--- OUTSIDE RECORDS SUMMARY | ~2019-02-17 | XMS | Encounter Summary ---
Demographics + + + | Address | [address] | | | [place] [address] | + + + | Home Phone [...] + + + | Author | [facility] | | | and Josephana | + + + | Organization | [facility] | | | and [...] Providers + +------+ + | Care Personal Lines Account Manager Name | Role | Phone | + +------+ + | Tien Nicholson MD | PCP | | + +------+ + Encounter Details +--------+ + + + + | Date | Type | Department | Care Team | Description | +--------+ + + + + | 07/18/ | Hospital | [facility] | Mary Mckay, | Febrile illness; | | 2019 - | Encounter | [facility] | [address] | Recurrent pleural | | | | CARE FLOOR [address] | [place] [address] | effusion on right; | | 07/24/ | | [address] | [phone] | Hypoxia; History of | | 2019 | | [place], [place] | | end stage renal | | | | [address] | | disease; ESRD on | | | | [phone] | | hemodialysis ([facility]); | | | | | | Anemia in ESRD | | | | | | (end-stage renal | | | | | | disease) ([facility]); | | | | | | Moderate to severe | | | | | | pulmonary | | | | | | hypertension ([facility]); | | | | | | Chronic right-sided | | | | | | heart failure ([facility]); | | | | | | Pleural effusion on | | | | | | right | +--------+ + + + + Social [...] + + + | Blood Pressure | 121/70 | 07/24/2018 8:47 AM | | | | | PDT | | + + + + + | Pulse | 87 | 07/24/2018 8:47 AM | | | | | PDT | | + + + + + | Temperature | 37.4 C (99.3 F) | 07/24/2018 8:47 AM | | | | | PDT | | + + + + + | Respiratory Rate | 16 | 07/24/2018 8:47 AM | | | | | PDT | | + + + + + | Oxygen Saturation | - | - | | + + + + + | Inhaled Oxygen | - | - | | | Concentration | | | | + + + + + | Weight | 58.2 kg (128 lb 5 | 07/24/2018 8:47 AM | | | | oz) | PDT | | + + + + + | Height | 170.2 cm (5' 7") | 07/24/2018 8:47 AM | | | | | PDT | | + + + + + | Body Mass Index | 20.1 | 07/24/2018 8:47 AM | | | | | PDT | | + + + + + documented in this encounter Discharge Summaries Usha Martínez MD - 07/24/2018 9:06 AM PDTFormatting of this note might be different from th e original. Discharge Summaries by Usha Martínez MD at 07/24/18905 Author: Usha Martínez MD Service: Hospitalist Author Type: Physician Filed: 07/24/18 1306 Date of Service: 07/24/18905 Status: Signed Vegetable Canner: Usha Martínez MD (Physician) [facility] Service: Hospitalist Discharge Summary Date of Admission: 07/18/2018 Date of Discharge: 07/24/2018 Discharge Physician: Usha Martínez MD Treatment Team: Consulting Physician: Antonio Pabon MD Admitting Provider: Mary Mckay MD Discharge Diagnoses: Principal Problem: Sepsis (HCC) Active Problems: ESRD on hemodialysis (HCC) SOB (shortness of breath) Moderate to severe pulmonary hypertension (HCC) Non-rheumatic mitral regurgitation Dilated cardiomyopathy (HCC) Acute hypoxemic respiratory failure (HCC) Pleural effusion on right Chronic right-sided heart failure (HCC) Hypertension Pancytopenia (HCC) Chest pain Other ascites Troponin I above reference range Anemia in ESRD (end-stage renal disease) (HCC) Resolved Problems: * No resolved hospital problems. * Procedures: * No surgery found * Significant Diagnostic Studies: Ct Chest Without Contrast Addendum Date: 07/20/2018 ADDENDUM BEGINS Clarification of the first line of the impression: Large RIGHT pleural effu arturo, unchanged. Associated atelectasis noted involving the right lung. Signed by: Suha Lenz Amit Sign Date/Time: 07/20/2018 9:30 AM ADDENDUM ENDS Result Date: 07/20/2018 Large left pleural effusion, unchanged. Associated atelectasis noted along the right lung. Mosaic attenuation of the left lung parenchyma, uncertain etiology. Again, differential con siderations for this finding are broad, to include parenchymal, vascular or small airway obs tructive process. Partially visualized at least small amount of ascites. Borderline cardiome viki. Enlarged mediastinal lymph nodes, unchanged. Signed by: Eliza Lenz Amit Sign Date/Ti me: 07/19/2018 9:13 AM Us Chest Result Date: 07/20/2018 No left pleural fluid is seen. Large right pleural effusion was not scanned. This looks e asily drainable by ultrasound guidance. Signed by: Eliza Bustos Shawn Sign Date/Time: 2018 11:43 AM X-ray Chest 1 View Result Date: 07/21/2018 1. No evidence of pneumothorax post thoracentesis. 2. Mild residual atelectasis seen along the minor fissure and perihilar region of the right lung. Signed by: Abbi Espinoza Edward S ign Date/Time: 07/21/2018 11:25 AM BRIEF HISTORY OF PRESENTATION and HOSPITAL COURSE: Dara Louise is a 23 y.o. female who presented per note " an exten sive past medical history of IgA vasculitis, end-stage renal disease on hemodialysis Monday and Monday (cfd engineer Dr. 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, hypertension, asthma, chronic combined heart failure, severe pulmonary hypertension, cor pulmonale, moderate mitral valve regurgitation, severe tricuspid regurgit ation and other chronic comorbidities who was discharged on 05/2018 from [facility] with bilateral pleural effusions and ascites status post thoracentesis 1.5 L removed transudative and 4 L ascitic fluid removed who presents to [facility] ER from [facility] ER for sepsis likely seco ndary to pulmonary pathology. The patient was admitted to regular medical floor, noted to have fever of T-max 101 from Sa int K[facility]. Patient had positive respiratory film array demonstrating parainfluenza 3. Blood cultures demonstrated no growth to date. The patient had a CT of the chest which d emonstrated large left pleural effusion unchanged with associated atelectasis status post thoracentesis which demonstrated exudative effusion based on protein presumed to be second anne to autoimmune disease. Body fluid pH 7.48. MRSA by PCR of the nares was negative. Patient continued to demonstrate continued clinical improvement and broad-spectrum antibioti cs were down titrated to Rocephin and the patient was observed for 24 hours with continued s tability. On the day of discharge the patient was alert oriented x4, tolerating p.o. diet without symptoms, just completed hemodialysis, clinically, hemodynamically from a laboratory perspective stable for discharge with outpatient follow-up. The patient was converted to Omnicef to complete a total of 14 days of antibiotic therapy. The patient is to follow-up with her outpatient primary care physician within 1 to 2 weeks after discharge and to follow -up with cfd engineer and information resource consultant within 1 to 2 weeks after discharge or as otherwise s tated by consultants" Patient was discharged in stable condition. Addressed all of their questions and covered wi th side affects of newly added medications. she was cleared per consulting services. Past Medical History Diagnosis Date Anemia Arthralgia unknown bone disease: affects back , hips , and knees Asthma Clotted dialysis access (HCC) 2014 ESRD (end stage renal disease) (HCC) Hepatitis B virus infection HSP (Henoch-Schonlein purpura) nephritis (HCC) Hypertension Past Surgical History Procedure Laterality Date ABDOMINAL SURGERY AV FISTULA PLACEMENT AV FISTULA PLACEMENT Left 04/08/2014 Procedure: AV FISTULA; Surgeon: Rik Simon MD; Location: [facility] MAIN OR; Service: Vascula r; Laterality: Left; cephalic AV FISTULA REPAIR Left 03/07/2014 Procedure: AV FISTULA - GRAFT REPAIR/REVISION; Surgeon: Rik Simon MD; Location: [facility] IN OR; Service: Vascular; Laterality: Left; DECLOT GRAFT Left 03/07/2014 Procedure: GRAFT - DECLOT; Surgeon: Rik Simon MD; Location: [facility] MAIN OR; Service: Vas cular; Laterality: Left; DIALYSIS FISTULA CREATION N/A 04/08/2014 Procedure: DIALYSIS CATHETER - INSERTION; Surgeon: Rik Simon MD; Location: [facility] OR ; Service: Vascular; Laterality: N/A; tunneled catheter LAPAROSCOPIC PERITONEAL DIALYSIS CATHETER INSERTION x2 LAPAROSCOPIC PERITONEAL DIALYSIS CATHETER INSERTION Right 07/2013 current dialysis access MWF dialysis RENAL BIOPSY RENAL BIOPSY Left 2003 SUPERFICIALIZATION OF AV FISTULA Left 06/24/2014 Procedure: AV FISTULA - SUPERFICIALIZATION; Surgeon: Rik Simon MD; Location: [facility] OR; Service: Vascular; Laterality: Left; Allergies Allergen Reactions Fentanyl Itching Iodinated Diagnostic Agents Itching Pt c/o face itching during fistulagram Morphine Rash Ritalin [Methylphenidate Hcl] Other (See Comments) Patient says skin was crawling Tape [Adhesive Tape] Rash Use silk tape only No prescriptions prior to admission. DISCHARGE EXAM Vital Signs: BP 121/70 (BP Location: Right upper arm) | Pulse 87 | Temp 99.3 F (37.4 C) (Oral) | Resp 16 | Ht 1.702 m (5' 7") | Wt 58.2 kg (128 lb 4.9 oz) | SpO2 93% | ? No | BMI 20.10 kg/m General appearance: alert, appears stated age, cooperative and no distress Head: Normocephalic, without obvious abnormality, atraumatic Neck: no adenopathy, no carotid bruit, no JVD, supple, symmetrical, trachea midline and thy roid not enlarged, symmetric, no tenderness/mass/nodules Lungs: diminished breath sounds bibasilar and bilaterally Heart: regular rate and rhythm, S1, S2 normal, no murmur, click, rub or gallop Abdomen: soft, non-tender; bowel sounds normal; no masses, no organomegaly Extremities: extremities normal, atraumatic, no cyanosis or edema Pulses: 2+ and symmetric Neurologic: Grossly normal AXO3 non focal DATA CBC: Lab Results Component Value Date WBC 7.05 07/24/2018 RBC 3.15 (L) 07/24/2018 HGB 11.7 07/24/2018 HCT 34.8 07/24/2018 MCV 110.7 (H) 07/24/2018 MCH 37.1 (H) 07/24/2018 MCHC 33.5 07/24/2018 RDW 61.7 (H) 07/24/2018 PLT 175 07/24/2018 MPV 9.1 07/24/2018 DIFFTYPE AUTOMATED 07/23/2018 CMP: Lab Results Component Value Date NA 140 07/24/2018 K 4.4 07/24/2018 CL 100 07/24/2018 CO2 28 07/24/2018 ANIONGAP 16 07/24/2018 GLUF 117 (H) 07/24/2018 BUN 30 (H) 07/24/2018 CREATININE 5.48 (H) 07/24/2018 BCR 6 07/21/2018 CA 10.2 07/24/2018 PROT 7.2 07/21/2018 ALB 4.2 07/24/2018 GLOB 4.3 07/19/2018 BILITOT 1.1 07/21/2018 ALP 154 (H) 07/21/2018 AST 159 (H) 07/21/2018 ALT 181 (H) 07/21/2018 EGFR 10 (L) 07/24/2018 Lab Results Component Value Date CKTOTAL 291 (H) 05/26/2018 CKMB 7.8 (H) 05/26/2018 CKMBINDEX 2.7 05/26/2018 TROPONINI 0.077 (H) 07/19/2018 Lab Results Component Value Date PHOS 4.1 07/24/2018 Results for DARA LOUISE ( ) as of 07/24/2018 13:05 Ref. Range 07/21/2018 14:00 FLUID TOTAL PROTEIN Latest Units: g/dL 4.2 FLUID LDH Latest Units: U/L 148 FLUID PH Unknown 7.48 Fluid culture w/gram stain [[id number]] Collected: 07/21/18 1400 Order Status: Completed Lab Status: Preliminary result Updated: 07/24/18 0948 Specimen: Body Fluid from Thoracic Fluid Specimen Description THORACIC FLUID GRAM STAIN NO CELLS OR ORGANISMS SEEN CULTURE NO GROWTH 3 DAYS Fluid total protein (Body fluid) [[id number]] Collected: 07/21/18 1400 Order Status: Completed Lab Status: Final result Updated: 07/21/18 165 Specimen: Body Fluid from Thoracentesis Fluid FLUID TOTAL PROTEIN 4.2 g/dL Comment: This is not a pre billing clinician validated sample type for this method. No reference ra nges have been established. Testing performed at [facility], [address] [place] [address] FLUID TP SOURCE THORACENTESIS Comment: Testing performed at [facility];[address] [place] [address] Lactate dehydrogenase, body fluid [[id number]] Collected: 07/21/18 1400 Order Status: Completed Lab Status: Final result Updated: 07/21/181649 Specimen: Body Fluid from Thoracentesis Fluid FLUID LDH 148 U/L Comment: This is not a pre billing clinician validated sample type for this method. No reference ra nges have been established. Testing performed at [facility], [address] [place] [address] pH, body fluid [[id number]] Collected: 07/21/18 1400 Order Status: Completed Lab Status: Final result Updated: 07/21/18 1426 Specimen: Body Fluid from Thoracentesis Fluid FLUID PH 7.48 Comment: Testing performed at [facility];[address] [place] [address] Blood Culture Set 1 [[id number]] Collected: 07/19/18 0853 Order Status: Completed Lab Status: Preliminary result Updated: 07/21/18 06 Specimen: Blood from Blood, peripheral draw Specimen Description BLOOD, PERIPHERAL DRAW SPECIAL REQUESTS RIGHT AC CULTURE NO GROWTH 2 DAYS Blood Culture Set 2 [[id number]] Collected: 07/19/18 0925 Order Status: Completed Lab Status: Preliminary result Updated: 07/21/18 06 Specimen: Blood from Blood, peripheral draw Specimen Description BLOOD, PERIPHERAL DRAW SPECIAL REQUESTS RT FOREARM CULTURE NO GROWTH 2 DAYS Respiratory Filmarray [[id number]] (Abnormal) Collected: 07/19/18 0132 Order Status: Completed Lab Status: Final result Updated: 07/19/18 0542 Specimen: Nasopharyngeal Culture ADENOVIRUS Not Detected CORONAVIRUS 229E Not Detected CORONAVIRUS HKU1 Not Detected CORONAVIRUS NL63 Not Detected CORONAVIRUS OC43 Not Detected HUMAN METAPNEUMOVIRUS Not Detected HUMAN RHINO/ENTERO Not Detected INFLUENZA A Not Detected INFLUENZA B Not Detected PARAINFLUENZA 1 Not Detected PARAINFLUENZA 2 Not Detected PARAINFLUENZA 3 DETECTED (A) PARAINFLUENZA 4 Not Detected RESP SYNCYTIAL VIRUS Not Detected BORDETELLA PERTUSSIS Not Detected CHLAMYDIAE PNEUMONIAE Not Detected MYCOPLASMA PNEUMONIAE Not Detected RESP PANEL INTERP Testing performed by Molecular Methodology Comment: Testing performed at [facility], [address] [place] [address] MRSA by PCR [[id number]] Collected: 07/19/18 013 Order Status: Completed Lab Status: Final result Updated: 07/19/18303 Specimen: Nasal from Nares(Nose) SOURCE NARES(NOSE) MRSA PCR NEGATIVE Comment: Testing performed at [facility];[address] [place] [address];[place] [address] Disposition: Home Condition: Stable Code Status: Full Code Discharge Instructions Ambulatory referral to Pulmonology Referral Priority: Routine Referral Type: Consultation Referral Reason: Specialty Services Required Requested Specialty: Pulmonary Disease Number of Visits Requested: 1 Diet Renal Activity as Advised by Physical Therapy Call MD for: Temperature > 100.4F (38C) Call MD for: Persistant Nausea and Vomiting Call MD for: Severe Uncontrolled Pain Call MD for: Redness, Tenderness, or Signs of Infection (Pain, Swelling, Redness, Odor or Green/Yellow Discharge Around Incision Site) Call MD for: Difficulty Breathing, Headache or Visual Disturbances Call MD for: Hives Call MD for: Persistant Dizziness or Light-Headedness Call MD for: Extreme Fatigue Follow up: Tien Nicholson MD [address] [facility], [address] [place] [address] Schedule an appointment as soon as possible for a visit in 1 week [facility] NE[facility] [address] [place] [address] Schedule an appointment as soon as possible for a visit in 1 week [facility] PULMONOLOGY [address] [place] [address] Schedule an appointment as soon as possible for a visit in 1 week Medication List START taking these medications cefdinir 300 MG capsule QTY: 4 capsule Refills: 0 Commonly known as: OMNICEF Take 1 capsule by mouth every other day for 8 days. ondansetron 4 MG disintegrating tablet QTY: 20 tablet Refills: 0 Commonly known as: ZOFRAN-ODT Take 1 tablet by mouth every 6 (six) hours as needed for Nausea for up to 7 days. predniSONE 10 MG tablet QTY: 90 tablet Refills: 0 Commonly known as: DELTASONE Take 6 tablets by mouth daily with breakfast. Take 6 tablets x 6 days; followed by 5tabs x 5 days, 4 tabs x 4 days, 3 tabs x 3, 2 tabs x 2 and 1 tab x 1 day CHANGE how you take these medications metoprolol 50 MG 24 hr tablet QTY: 30 tablet Refills: 2 Commonly known as: TOPROL-XL Take 1 tablet by mouth daily. What changed: medication strength promethazine 25 MG tablet QTY: 30 tablet Refills: 0 Commonly known as: PHENERGAN Take 1 tablet by mouth every 6 (six) hours as needed for Nausea or Vomiting (non-resposive to zofran). What changed: reasons to take this CONTINUE taking these medications clopidogrel 75 MG tablet Refills: 0 Commonly known as: PLAVIX ipratropium-albuterol 0.5-2.5 mg/3mL Refills: 0 Commonly known as: DUO-NEB pantoprazole 40 MG tablet QTY: 30 tablet Refills: 1 Commonly known as: PROTONIX Take 1 tablet by mouth every morning before breakfast for 60 days. sevelamer 800 MG tablet QTY: 180 tablet Refills: 2 Commonly known as: RENVELA Take 2 tablets by mouth 3 (three) times daily with meals. valsartan 40 MG tablet QTY: 30 tablet Refills: 11 Commonly known as: DIOVAN Take 1 tablet by mouth daily. You might also be taking other medications not listed above. If you have questions about an y of your other medications, talk to the person who prescribed them or your Primary Care Pro vider. STOP taking these medications ondansetron 8 MG tablet Commonly known as: ZOFRAN Where to Get Your Medications You can get these medications from any pharmacy Bring a paper prescription for each of these medications cefdinir 300 MG capsule metoprolol 50 MG 24 hr tablet ondansetron 4 MG disintegrating tablet predniSONE 10 MG tablet promethazine 25 MG tablet Discharge took over 30 minutes, to include final examination, discussion of admission, and preparation of prescriptions, instructions for on-going care, follow-up and documentation o f discharge summary. Usha Martínez MD 07/24/2018 documented in this encou nter Medications at Time of Discharge + + [...] 6 (six) | | | 19 | | | tablet [...] Progress Notes Conversion Transaction, Provider Unknown - 07/24/2018 10:28 AM PDTFormatting of this note m ight be different from the original. Case Management by Iram Saleh RN at 07/24/18 1028 Author: Iram Saleh RN Service: (none) Author Type: Registered Nurse Filed: 07/24/18 1100 Date of Service: 07/24/18 1028 Status: Signed Vegetable Canner: Iram Saleh RN (Registered Nurse) Disposition: Home Transportation: Friend All DC paperwork completed Patient and family in agreement with discharge plan Medicare important message (Given): Yes &copy placed in chart. IRAM SALEH RN,. onver arturo Transaction, Provider Unknown - 07/24/2018 10:16 AM PDT Nurse Progress Note by Christina Aguilar RN at 07/24/18 1016 Author: Christina Aguilar RN Service: (none) Author Type: Registered Nurse Filed: 07/24/18 1016 Date of Service: 07/24/18 1016 Status: Signed Vegetable Canner: Christina Aguilar RN (Registered Nurse) Discharge teaching given, prescriptions faxed by correctional case manager to pt's pharmacy. Pt denies c oncern. Ride home at bedside. Pt getting dressed now for discharge. onver arturo Transaction, Provider Unknown - 07/24/2018 10:12 AM PDT Case Management by Iram Saleh RN at 07/24/18 1012 Author: Iram Saleh RN Service: (none) Author Type: Registered Nurse Filed: 07/24/18 1014 Date of Service: 07/24/18 1012 Status: Signed Vegetable Canner: Iram Saleh RN (Registered Nurse) Discharge planning: Met with pt, she indicated her friend is on her way to transport her from the hospital, no other needs identified. ADÁN signed and copy placed in chart. Pt's discharge prescriptions was faxed to [facility], Billie Braxton MD - 07/24/2018 9:09 AM PDTFormatting of this note might be different from th e original. Progress Notes by Billie Gupta MD at 07/24/18 09 Author: Billie Gupta MD Service: Nephrology Author Type: Physician Filed: 07/24/18910 Date of Service: 07/24/18908 Status: Signed Vegetable Canner: Billie Gupta MD (Physician) [facility] Followup -Nephrology I saw Ms. Dara Louise today for follow-up. she is interviewed, examined and meds/ labs Have been reviewed. 23-year-old female with an extensive past medical history of IgA vasculitis, end-stage abdiel l disease on hemodialysis Monday and Monday (cfd engineer Dr. Anguiano) , chronic c ombined heart failure, severe pulmonary hypertension, cor pulmonale, moderate mitral valve r egurgitation, severe tricuspid regurgitation and other chronic comorbidities who was dischar ged on 05/2018 from [facility] with bilateral pleural effusions and ascites status post thoracente sis 1.5 L removed transudative and 4 L ascitic fluid removed who presents to [facility] ER f [facility] [place] [facility] for sepsis likely secondary to pneumonia. Had thoracentesis on 07/21/18. Review of Systems: The patient reports abdominal pain mostly upper left quad..She denies chills, fever fatigue . Otherwise all ROS negative Physical Exam Blood pressure 121/70, pulse 87, temperature 99.3 F (37.4 C), temperature source Oral, resp. rate 16, height 1.702 m (5' 7"), weight 58.2 kg (128 lb 4.9 oz), SpO2 93 %, not curren tly . Intake/Output Summary (Last 24 hours) at 07/24/18 0909 Last data filed at 07/24/18 0625 Gross per 24 hour Intake 1668 ml Output 3760 ml Net -2092 ml Constitutional: pt appears without distress. HENT: Normocephalic and atraumatic. Cardiovascular: Normal rate. no gallop and no friction rub. Pulmonary/Chest: No stridor. No respiratory distress. Pt has no wheezes, no rales, decreas ed sounds in right base. Abdominal: There is no distension. There is no tenderness and no rebound or guarding. Musculoskeletal: pt exhibits No edema in lower extremities Neurological: pt is alert and oriented to person, place, and time. There is no asterixis. N o facial asymmetry. Access; pt has left AVF. It has good thrill and bruit Laboratory data most recent pertinent labs from 07/24/2018 Lab Results Component Value Date WBC 7.05 07/24/2018 HGB 11.7 07/24/2018 PLT 175 07/24/2018 NA 140 07/24/2018 K 4.4 07/24/2018 CL 100 07/24/2018 CO2 28 07/24/2018 ANIONGAP 16 07/24/2018 BUN 30 (H) 07/24/2018 CREATININE 5.48 (H) 07/24/2018 CA 10.2 07/24/2018 PHOS 4.1 07/24/2018 MG 2.6 (H) 07/23/2018 EGFR 10 (L) 07/24/2018 R Assessment and Plan: ESRD: will plan HD M,W,F for UF and clearance. Monitor volume closely. Access: functioning well Bone-Mineral Disease management: Calcium ; controlled Phos : controlled. Keep low dietary phos intake . currently on renvela 3 per meal. M onitor Anemia management: adjust epo to keep target Hb between 10-12. Fluid status: Fluid Restriction . Restrict sodium intake to 2 Grams per 24 hrs HTN: BP is reasonably controlled on the current regimen. Nutrition: liberal protein intake low sodium , low potassium and low phos. Right pleural effusion: Respiratory film array positive for parainfluenza 3. -Thoracent esis performed on 07/21 with 1.5 L removed. Body fluid demonstrate exudative effusion based on protein. ? autoimmune secondary to IgA vasculitis. The body fluid pH is 7.48 less lik fredi to be parapneumonic effusion particularly in the patient's improving clinical context. A trial of steroid was started . Chronic combined heart failure:-Last 2-D echocardiogram 06/12/2018 demonstrates ejection f raction of 30-35 percent, grade 3 diastolic dysfunction, moderate mitral regurgitation, bebo re tricuspid regurgitation and severe pulmonary hypertension. Dose all of meds to an estimated GFR of less than 10 cc/ min. Magnesium and aluminum containing antacids should be avoided. Magnesium or phosphorus containing laxatives should be avoided 07/24/2018 onversion Transa ction, Provider Unknown - 07/24/2018 4:55 AM PDT Nurse Progress Note by Minda Hudson RN at 07/24/18454 Author: Minda Hudson RN Service: (none) Author Type: Registered Nurse Filed: 07/24/18524 Date of Service: 07/24/18454 Status: Signed Vegetable Canner: Minda Hudson RN (Registered Nurse) Pt reporting pain at 8/10 PRN dilaudid given x3. Nasal cannula 1.5 L. No other acute mims es. End of shift review complete/ 24 hr chart check complete. Minda Hudson RN onver arturo Transaction, Provider Unknown - 07/23/2018 6:26 PM PDT Nurse Progress Note by Saundra Hartley RN at 07/23/181825 Author: Saundra Hartley RN Service: (none) Author Type: Registered Nurse Filed: 07/23/18 6639 Date of Service: 07/23/181825 Status: Signed Vegetable Canner: Saundra Hartley RN (Registered Nurse) Pt continues to c/o some abdominal pain and nausea, PRN dilaudid and zofran given with reli ef. Pt had HD today and completed entire session, 3L was taken off. Pt remains on 1.5 L oxyg en via nasal cannula. SBP 100-130, HR 60-70, and afebrile. No acute changes during hourly ro unding. End of shift audit complete. Saundra Hartley RN otero Lau MD - 07/23/2018 1:36 PM PDT Progress Notes by Sotero Reinoso MD at 07/23/181335 Author: Sotero Reinoso MD Service: Hospitalist Author Type: Physician Filed: 07/23/181336 Date of Service: 07/23/181335 Status: Signed Vegetable Canner: Sotero Reinoso MD (Physician) [facility] Service: Hospitalist Progress Note Hospital Day: LOS: 4 days Briefly, 23-year-old female with an extensive past medical history of IgA vasculitis, end-s tage renal disease on hemodialysis Monday and Monday (cfd engineer Dr. 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 The patient was admitted to regular medical floor, noted to have fever of T-max 101 from [facility]. Patient had positive respiratory film array demonstrating parainfluenza 3. Blood cultures demonstrated no growth to date. The patient had a CT of the chest which demo nstrated large left pleural effusion unchanged with associated atelectasis status post tho racentesis which demonstrated exudative effusion based on protein presumed to be secondary to autoimmune disease. Body fluid pH 7.48. MRSA by PCR of the nares was negative. Patien t continued to demonstrate continued clinical improvement and broad-spectrum antibiotics wer e down titrated to Rocephin and the patient was observed for 24 hours with continued stabili ty. On the day of discharge the patient was alert oriented x4, tolerating p.o. diet without symptoms, just completed hemodialysis, clinically, hemodynamically from a laboratory perspe ctive stable for discharge with outpatient follow-up. The patient was converted to Omnicef to complete a total of 14 days of antibiotic therapy. The patient is to follow-up with her outpatient primary care physician within 1 to 2 weeks after discharge and to follow-up with cfd engineer and information resource consultant within 1 to 2 weeks after discharge or as otherwise stated by consultants. Patient was to be discharged on 07/23; however, as the patient's family lives over an hour away with dialysis unable to be completed until earlier this evening patient notes she will not be able to leave until 07/24 AM. SUBJECTIVE No acute overnight events. Patient is alert and oriented 4. No family at bedside. The patient notes overall improvement from admission with near resolution of upper respiratory t ract like infection symptoms and improvement in fatigue and malaise. Tolerating p.o. diet. Progression stable with improvement. REVIEW OF SYSTEMS: ROS As above Chronic joint pain Rash noted The patient denies fever or chills The patient denies angina, SOB, or palpitations. OBJECTIVE Vital Signs: BP 118/65 | Pulse 75 | Temp 97.8 F (36.6 C) (Oral) | Resp 14 | Ht 1.702 m (5' 7") | Wt 61.3 kg (135 lb 2.3 oz) | SpO2 96% | ? No | BMI 21.17 kg/m GENERAL: Well developed, well nourished, no distress. No family at bedside. Patient sitt ing in chair. LUNGS: effort normal. No acute distress. HEART: Regular rate and rhythm, S1, S2 normal. II/ systolic murmur. ABDOMEN: Soft, nontender. Bowel sounds are normal in all 4 quadrants. EXTREMITIES: No edema. Radial pulses 2+ bilaterally. Femoral pulses are 2+ bilaterally wi thout bruits. DP and PT pulses are 2+ bilaterally. SKIN: Warm and dry. NEUROLOGIC: Awake, alert and oriented x 3. No focal motor deficits. Nursing notes and vital signs reviewed. DATA Labs, medications, allergies and other treatment team notes reviewed. Principal Problem: Sepsis (HCC) Active Problems: ESRD on hemodialysis (HCC) SOB (shortness of breath) Moderate to severe pulmonary hypertension (HCC) Non-rheumatic mitral regurgitation Dilated cardiomyopathy (HCC) Acute hypoxemic respiratory failure (HCC) Pleural effusion on right Chronic right-sided heart failure (HCC) Hypertension Pancytopenia (HCC) Chest pain Other ascites Troponin I above reference range Anemia in ESRD (end-stage renal disease) ([facility]) ASSESSMENT & PLAN 1. Sepsis: -Hemodynamically stable. -Noted at [place]' the patient was febrile with a T-max of 101. -CT chest reviewed. -Respiratory film array positive for parainfluenza 3. Blood cultures ordered-pending. -MRSA screen of the nares negative. -Initial lactate negative. -Thoracentesis performed on 07/21 with 1.5 L removed. Body fluid labs reviewed demonstrate exudative effusion based on protein. Likely etiolog y is autoimmune secondary to IgA vasculitis. The body fluid pH is 7.48 less likely to be parapneumonic effusion particularly in the patient's improving clinical context. -Will downgrade antibiotics from cefepime to Rocephin and monitor for 24 hours if the patie nt continues to be afebrile without leukocytosis and continued laboratory stability we charly l transition patient to Omnicef to complete a 10-day course of antibiotic therapy. -The patient will be started on prednisone 60 mg x 6 days, followed by 50 mg x 5 days con tinue with taper dosing. -Supportive care. -Patient will likely be discharged tomorrow, attempted to discharge today; however, second anne to social issues unable to be discharged until 07/24. 2. End-stage renal disease on hemodialysis, with incomplete session: -Appreciate nephrology input regarding further inpatient care and management. -Continue with phosphate binder. -Patient on renal, cardiac 2 g low sodium 1200 cc diet and will adjust fluid restriction ac cordingly. 3. Hyperkalemia: -Patient to receive hemodialysis on 07/23. 4. Chronic combined heart failure: -Last 2-D echocardiogram 06/12/2018 demonstrates ejection fraction of 30-35 percent, grade 3 diastolic dysfunction, moderate mitral regurgitation, severe tricuspid regurgitation and sev ere pulmonary hypertension. -Home medications valsartan 40 mg q daily (with the intention of converting to entresto) and Toprol-XL 25 mg po q daily. Toprol-XL has been increased to 50 mg daily - The patient does follow up with outpatient information resource consultant (Dr. Mahmood) patient is tentative ly and referral to advanced heart failure center with consideration of AICD basement. -The patient has been educated on fluid and salt restriction in detail. Thrombocytopenia: -Chronic. -Stable, will monitor. Severe tricuspid regurgitation/moderate mitral regurgitation: -Medical management. -Maintain euvolemia Disposition: inpatient Code Status: Full Code Sotero Reinoso MD 07/23/2018 Paulino, Billie Hernandez MD - 07/23/2018 9:18 AM PDT Progress Notes by Billie Gupta MD at 07/23/18917 Author: Billie Gupta MD Service: Nephrology Author Type: Physician Filed: 07/23/18926 Date of Service: 07/23/18917 Status: Signed Vegetable Canner: Billie Gupta MD (Physician) [facility] Followup -Nephrology I saw Ms. Dara Louise today for follow-up. she is interviewed, examined and meds/ labs Have been reviewed. 23-year-old female with an extensive past medical history of IgA vasculitis, end-stage abdiel l disease on hemodialysis Monday and Monday (cfd engineer Dr. Anguiano) , chronic c ombined heart failure, severe pulmonary hypertension, cor pulmonale, moderate mitral valve r egurgitation, severe tricuspid regurgitation and other chronic comorbidities who was dischar ged on 05/2018 from [facility] with bilateral pleural effusions and ascites status post thoracente sis 1.5 L removed transudative and 4 L ascitic fluid removed who presents to [facility] f [facility] for sepsis likely secondary to pneumonia. Had thoracentesis on 07/21/18. Review of Systems: The patient reports nausea, dyspnea and abdominal pain mostly upper left quad..She denies c hills, fever fatigue. Physical Exam Blood pressure 125/81, pulse 84, temperature 97.5 F (36.4 C), temperature source Oral, resp. rate 16, height 1.702 m (5' 7"), weight 63 kg (138 lb 14.2 oz), SpO2 97 %, not current ly . Intake/Output Summary (Last 24 hours) at 07/23/18917 Last data filed at 07/23/18621 Gross per 24 hour Intake 1770.33 ml Output 50 ml Net 1720.33 ml Constitutional: pt appears without distress. HENT: Normocephalic and atraumatic. Oropharynx is clear. No oropharyngeal exudate. Neck: No JVD present. Cardiovascular: Normal rate. no gallop and no friction rub. Pulmonary/Chest: No stridor. No respiratory distress. Pt has no wheezes, no rales, decreas ed sounds in right base. Abdominal: There is no distension. There is no tenderness and no rebound or guarding. Musculoskeletal: pt exhibits No edema in lower extremities Lymphadenopathy: there is no cervical adenopathy. Neurological: pt is alert and oriented to person, place, and time. There is no asterixis. N o facial asymmetry. Access; pt has left AVF. It has good thrill and bruit Laboratory data most recent pertinent labs from 07/23/2018 Lab Results Component Value Date WBC 3.39 (L) 07/23/2018 HGB 11.5 07/23/2018 PLT 153 07/23/2018 NA 136 07/23/2018 K 4.8 07/23/2018 CL 97 (L) 07/23/2018 CO2 27 07/23/2018 ANIONGAP 17 07/23/2018 BUN 42 (H) 07/23/2018 CREATININE 8.3 (H) 07/23/2018 CA 9.5 07/23/2018 PHOS 5.8 (H) 07/23/2018 MG 2.6 (H) 07/23/2018 EGFR 6 (L) 07/23/2018 R Assessment and Plan: ESRD: will plan HD today for UF and clearance. Monitor volume closely. Access: functioning well Bone-Mineral Disease management: Calcium ; controlled Phos : Uncontrolled. Keep low dietary phos intake . currently on renvela 3 per meal. Monitor Anemia management: adjust epo to keep target Hb between 10-12. Fluid status: Fluid Restriction . Restrict sodium intake to 2 Grams per 24 hrs HTN: BP is reasonably controlled on the current regimen. Nutrition: liberal protein intake low sodium , low potassium and low phos. Right pleural effusion: Respiratory film array positive for parainfluenza 3. -Thoracent esis performed on 07/21 with 1.5 L removed. Body fluid demonstrate exudative effusion based on protein. Likely etiology is autoimmune secondary to IgA vasculitis. The body fluid pH i s 7.48 less likely to be parapneumonic effusion particularly in the patient's improving cl inical context. Atrial of steroid was started . Chronic combined heart failure:-Last 2-D echocardiogram 06/12/2018 demonstrates ejection f raction of 30-35 percent, grade 3 diastolic dysfunction, moderate mitral regurgitation, bebo re tricuspid regurgitation and severe pulmonary hypertension. Dose all of meds to an estimated GFR of less than 10 cc/ min. Magnesium and aluminum containing antacids should be avoided. Magnesium or phosphorus containing laxatives should be avoided 07/23/2018 onversion Transa ction, Provider Unknown - 07/23/2018 6:23 AM PDT Nurse Progress Note by Shannon Martell RN at 07/23/18622 Author: Shannon Martell RN Service: (none) Author Type: Registered Nurse Filed: 07/23/18622 Date of Service: 07/23/18622 Status: Signed Vegetable Canner: Shannon Martell RN (Registered Nurse) No acute changes since shift assessment. Vital signs stable. Medicated for nausea x 1 with Zofran and x 1 with Phenergan. Medicated for itching x 1 with Benadryl 50 mg. Medicated for pain x 2 with Dilaudid 1 mg. End of shift audit and 24 hour chart check complete. Shannon Martell RN blemo Sotero parker MD - 07/22/2018 5:23 PM PDT Progress Notes by Sotero Reinoso MD at 07/22/181722 Author: Sotero Reinoso MD Service: Hospitalist Author Type: Physician Filed: 07/22/181726 Date of Service: 07/22/181722 Status: Signed Vegetable Canner: Sotero Reinoso MD (Physician) [facility] Service: Hospitalist Progress Note Hospital Day: LOS: 3 days 23-year-old female with an extensive past medical history of IgA vasculitis, end-stage abdiel l disease on hemodialysis Monday and Monday (cfd engineer Dr. 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 SUBJECTIVE No acute overnight events. Patient is alert and oriented 4. No family at bedside. The patient notes overall improvement from admission with near resolution of upper respiratory t ract like infection symptoms and improvement in fatigue and malaise. Tolerating p.o. diet. REVIEW OF SYSTEMS: ROS As above Chronic joint pain Rash noted The patient denies fever or chills The patient denies angina, SOB, or palpitations. The patient denies abdominal pain, nausea or vomiting. OBJECTIVE Vital Signs: BP 127/73 (BP Location: Right upper arm) | Pulse 73 | Temp 99.9 F (37.7 C) (Oral) | Resp 16 | Ht 1.702 m (5' 7") | Wt 63 kg (138 lb 14.2 oz) | SpO2 98% | ? No | BMI 21.75 kg/m GENERAL: Well developed, well nourished, no distress. No family at bedside. NECK: JVD present. Supple. LUNGS: effort normal. No acute distress. HEART: Regular rate and rhythm, S1, S2 normal. II/ systolic murmur. ABDOMEN: Soft, nontender. Bowel sounds are normal in all 4 quadrants. EXTREMITIES: No edema. Radial pulses 2+ bilaterally. Femoral pulses are 2+ bilaterally wi thout bruits. DP and PT pulses are 2+ bilaterally. SKIN: Warm and dry. NEUROLOGIC: Awake, alert and oriented x 3. No focal motor deficits. PSYCHIATRIC: Appropriate, affect appears normal Nursing notes and vital signs reviewed. DATA Labs, medications, allergies and other treatment team notes reviewed. Principal Problem: Sepsis (HCC) Active Problems: ESRD on hemodialysis (HCC) SOB (shortness of breath) Moderate to severe pulmonary hypertension (HCC) Non-rheumatic mitral regurgitation Dilated cardiomyopathy (HCC) Acute hypoxemic respiratory failure (HCC) Pleural effusion on right Chronic right-sided heart failure (HCC) Hypertension Pancytopenia (HCC) Chest pain Other ascites Troponin I above reference range Anemia in ESRD (end-stage renal disease) ([facility]) ASSESSMENT & PLAN 1. Sepsis: -Hemodynamically stable. -Noted at [place]' the patient was febrile with a T-max of 101. -CT chest reviewed. -Respiratory film array positive for parainfluenza 3. Blood cultures ordered-pending. -MRSA screen of the nares negative. -Initial lactate negative. -Thoracentesis performed on 07/21 with 1.5 L removed. Body fluid labs reviewed demonstrate exudative effusion based on protein. Likely etiolog y is autoimmune secondary to IgA vasculitis. The body fluid pH is 7.48 less likely to be parapneumonic effusion particularly in the patient's improving clinical context. -Will downgrade antibiotics from cefepime to Rocephin and monitor for 24 hours if the patie nt continues to be afebrile without leukocytosis and continued laboratory stability we charly l transition patient to Omnicef to complete a 10-day course of antibiotic therapy. -Supportive care. 2. End-stage renal disease on hemodialysis, with incomplete session: -Appreciate nephrology input regarding further inpatient care and management. -Continue with phosphate binder. -Patient on renal, cardiac 2 g low sodium 1200 cc diet and will adjust fluid restriction ac cordingly. 3. Hyperkalemia: -Management as per point #2. 4. Chronic combined heart failure: -Last 2-D echocardiogram 06/12/2018 demonstrates ejection fraction of 30-35 percent, grade 3 diastolic dysfunction, moderate mitral regurgitation, severe tricuspid regurgitation and sev ere pulmonary hypertension. -Home medications valsartan 40 mg q daily (with the intention of converting to entresto) and Toprol-XL 25 mg po q daily. - The patient does follow up with outpatient information resource consultant (Dr. Mahmood) patient is tentative ly and referral to advanced heart failure center with consideration of AICD basement. -The patient has been educated on fluid and salt restriction in detail. Thrombocytopenia: -Chronic. -Stable, will monitor. Severe tricuspid regurgitation/moderate mitral regurgitation: -Medical management. -Maintain euvolemia Disposition: inpatient Code Status: Full Code Sotero Reinoso MD 07/22/2018 onversion Transact ion, Provider Unknown - 07/22/2018 4:09 PM PDTFormatting of this note might be different fr om the original. Nurse Progress Note by Rafaela Patel RN at 07/22/18 1609 Author: Rafaela Patel RN Service: (none) Author Type: Registered Nurse Filed: 07/22/18 1620 Date of Service: 07/22/18 1609 Status: Addendum Vegetable Canner: Rafaela Patel RN (Registered Nurse) Related Notes: Original Note by Rafaela Patel RN (Registered Nurse) filed at 07/22/18 1619 Patient has been sleeping most of the day. She requested IV phenergan x1 for nausea. Her oxygen saturations dropped when she was sleeping and her O2 had been off at the time. End o f shift review done. Rafaela Patel RN 07/22/2018 4:10 PM Billie Braxton MD - 07/22/2018 9:34 AM PDTFormatting of this note might be different from th e original. Progress Notes by Billie Gupta MD at 07/22/18 0934 Author: Billie Gupta MD Service: Nephrology Author Type: Physician Filed: 07/22/18 1221 Date of Service: 07/22/18 09 Status: Addendum Vegetable Canner: Billie Gupta MD (Physician) Related Notes: Original Note by KRISHNA Sahu (Advanced Registered Nurse Practitio banner) filed at 07/22/18 1057 [facility] Followup -Nephrology I saw Ms. Dara Louise today for follow-up. she is interviewed, examined and meds/ labs Have been reviewed. 23-year-old female with an extensive past medical history of IgA vasculitis, end-stage abdiel l disease on hemodialysis Monday and Monday (cfd engineer Dr. 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 Had thoracentesis on 07/21/18. (See Below) SUBJECTIVE Recent events noted hypotension 85/49 at 2230 hrs as well as frequent oxygen desaturations through night. Patient is alert and oriented 4. No family at bedside. Patient notes uppe r respiratory infection symptoms intensity mild. Associated with fatigue, weakness and ma laise-improving. Progression stable-with improvement. Tolerating PO diet. +BM Noted weight loss since admission down 5 Kilos. Review of Systems: The patient reports nausea, dyspnea and abdominal pain mostly upper left quad..She denies c hills, fever fatigue. Reports normal headache after dialysis yesterday. Physical Exam Blood pressure 111/55, pulse 91, temperature 98.3 F (36.8 C), temperature source Oral, resp. rate 16, height 1.702 m (5' 7"), weight 63 kg (138 lb 14.2 oz), SpO2 94 %, not current ly . Intake/Output Summary (Last 24 hours) at 07/22/18 0934 Last data filed at 07/21/18 2302 Gross per 24 hour Intake 400 ml Output 0 ml Net 400 ml Constitutional: pt appears without distress. HENT: Normocephalic and atraumatic. Oropharynx is clear. No oropharyngeal exudate. Neck: No JVD present. Cardiovascular: Normal rate. no gallop and no friction rub. Pulmonary/Chest: No stridor. No respiratory distress. Pt has no wheezes, no rales, decreas ed sounds in right base. Abdominal: There is no distension. There is no tenderness and no rebound or guarding. Musculoskeletal: pt exhibits No edema in lower extremities Lymphadenopathy: there is no cervical adenopathy. Neurological: pt is alert and oriented to person, place, and time. There is no asterixis. N o facial asymmetry. Skin: Skin is warm . No rash noted. Access; pt has left AVF. It has good thrill and bruit Laboratory data most recent pertinent labs from 07/22/2018 Lab Results Component Value Date WBC 4.91 07/21/2018 HGB 11.0 (L) 07/21/2018 PLT 153 07/21/2018 NA 136 07/21/2018 K 4.1 07/21/2018 CL 98 (L) 07/21/2018 CO2 30 07/21/2018 ANIONGAP 12 07/21/2018 BUN 26 (H) 07/21/2018 CREATININE 4.6 (H) 07/21/2018 CA 9.7 07/21/2018 PHOS 8.0 (H) 07/20/2018 MG 2.6 (H) 07/19/2018 EGFR 12 (L) 07/21/2018 Right side Thorocentesis IMPRESSION 1. Successful ultrasound-guided diagnostic and therapeutic right thoracentesis with removal of 1500 mL of hazy, dai pleural fluid. 2. There were no immediate postprocedural complications and no postprocedure pneumothorax. Assessment and Plan: ESRD: will plan HD Monday for UF and clearance. Monitor volume closely. Access: functioning well Bone-Mineral Disease management: Calcium ; controlled Phos : Uncontrolled. Keep low dietary phos intake . currently on renvela 3 per meal. Monitor Anemia management: adjust epo to keep target Hb between 10-12. Fluid status: Fluid Restriction . Restrict sodium intake to 2 Grams per 24 hrs HTN: BP is reasonably controlled on the current regimen. Nutrition: liberal protein intake low sodium , low potassium and low phos. Dose all of meds to an estimated GFR of less than 10 cc/ min. Magnesium and aluminum containing antacids should be avoided. Magnesium or phosphorus containing laxatives should be avoided 07/22/2018 onversion Transa ction, Provider Unknown - 07/22/2018 6:54 AM PDT Nurse Progress Note by Priti Priest RN at 07/22/1854 Author: Priti Priest RN Service: (none) Author Type: Registered Nurse Filed: 07/22/18 0656 Date of Service: 07/22/18653 Status: Signed Vegetable Canner: Prtii Priest RN (Registered Nurse) SBP 80-100's, Pt reports slight lightheadedness with pressures in 80's. Afebrile. HR SR 80' s. No other changes over noc. [facility] Chart chart complete onver arturo Transaction, Provider Unknown - 07/21/2018 7:42 PM PDT Nurse Progress Note by Francesca Bustos RN at 07/21/181941 Author: Francesca Bustos RN Service: (none) Author Type: Registered Nurse Filed: 07/21/181942 Date of Service: 07/21/181941 Status: Signed Vegetable Canner: Francesca Bustos RN (Registered Nurse) No significant changes from shift assessment. No falls or new signs of skin breakdown. Pt p ain & nausea well controlled with PRNs (see MAR). No complaints of SOB. VSS for remainder of shift. WCM End of shift chart check done. bleSotero theodore MD - 07/21/2018 12:33 PM PDT Progress Notes by Sotero Reinoso MD at 07/21/18 1233 Author: Sotero Reinoso MD Service: Hospitalist Author Type: Physician Filed: 07/22/18 1617 Date of Service: 07/21/18 1233 Status: Signed Vegetable Canner: Sotero Reinoso MD (Physician) [facility] Service: Hospitalist Progress Note Hospital Day: LOS: 2 days 23-year-old female with an extensive past medical history of IgA vasculitis, end-stage abdiel l disease on hemodialysis Monday and Monday (cfd engineer Dr. 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 SUBJECTIVE No acute overnight events. Patient is alert and oriented 4. No family at bedside. Jaye ent notes upper respiratory infection symptoms intensity mild. Associated with fatigue, w eakness and malaise-improving. Progression stable-with improvement. Tolerating PO diet. +BM REVIEW OF SYSTEMS: ROS As above Chronic joint pain Rash noted The patient denies fever or chills The patient denies angina, SOB, or palpitations. The patient denies abdominal pain, nausea or vomiting. OBJECTIVE Vital Signs: BP 96/54 (BP Location: Right upper arm) | Pulse 75 | Temp 98 F (36.7 C) (Oral) | Res p 18 | Ht 1.702 m (5' 7") | Wt 63 kg (138 lb 14.2 oz) | SpO2 99% | ? No | BMI 21.75 kg/m GENERAL: Well developed, well nourished, no distress. HEENT: Normocephalic, atraumatic. EYES: PERRL, sclerae anicteric. NECK: JVD present. Supple. LUNGS: effort normal. No acute distress. HEART: Regular rate and rhythm, S1, S2 normal. II/ systolic murmur. ABDOMEN: Soft, nontender. Bowel sounds are normal in all 4 quadrants. EXTREMITIES: No edema. Radial pulses 2+ bilaterally. Femoral pulses are 2+ bilaterally wi thout bruits. DP and PT pulses are 2+ bilaterally. SKIN: Warm and dry. NEUROLOGIC: Awake, alert and oriented x 3. No focal motor deficits. PSYCHIATRIC: Appropriate, affect appears normal Nursing notes and vital signs reviewed. DATA Labs, medications, allergies and other treatment team notes reviewed. Principal Problem: Sepsis (HCC) Active Problems: ESRD on hemodialysis (HCC) SOB (shortness of breath) Moderate to severe pulmonary hypertension (HCC) Non-rheumatic mitral regurgitation Dilated cardiomyopathy (HCC) Acute hypoxemic respiratory failure (HCC) Pleural effusion on right Chronic right-sided heart failure (HCC) Hypertension Pancytopenia (HCC) Chest pain Other ascites Troponin I above reference range Anemia in ESRD (end-stage renal disease) ([facility]) ASSESSMENT & PLAN 1. Sepsis: -Hemodynamically stable. -Noted at [facility] [place] the patient was febrile with a T-max of 101. -CT chest reviewed. -Respiratory film array positive for parainfluenza 3. Blood cultures ordered-pending. -MRSA screen of the nares negative. -Initial lactate negative. -Continue with cefepime present time the next 24-48 hours based on results we will consid er down titrating therapy versus discontinuation and this was likely viral in nature. -Thoracentesis performed on 07/21 with 1.5 L removed. Body fluid labs ordered. Serum total protein and LDH ordered. -Supportive care. 2. End-stage renal disease on hemodialysis, with incomplete session: -Appreciate nephrology input regarding further inpatient care and management-HD later today . -Continue with phosphate binder. -Patient on renal, cardiac 2 g low sodium 1200 cc diet and will adjust fluid restriction ac cordingly. 3. Hyperkalemia: -Management as per point #2. 4. Chronic combined heart failure: -Last 2-D echocardiogram 06/12/2018 demonstrates ejection fraction of 30-35 percent, grade 3 diastolic dysfunction, moderate mitral regurgitation, severe tricuspid regurgitation and sev ere pulmonary hypertension. -Home medications valsartan 40 mg q daily (with the intention of converting to entresto) and Toprol-XL 25 mg po q daily. - The patient does follow up with outpatient information resource consultant (Dr. Mahmood) patient is tentative ly and referral to advanced heart failure center with consideration of AICD basement. Thrombocytopenia: -Chronic. -Stable, will monitor. Severe tricuspid regurgitation/moderate mitral regurgitation: -Medical management. -Maintain euvolemia Disposition: inpatient Code Status: Full Code Sotero Reinoso MD 07/21/2018 Billie Bob MD - 07/21/2018 10:24 AM PDT Progress Notes by Billie Gupta MD at 07/21/18 1024 Author: Billie Gupta MD Service: Nephrology Author Type: Physician Filed: 07/21/18 1029 Date of Service: 07/21/18 1024 Status: Signed Vegetable Canner: Billie Gupta MD (Physician) [facility] Followup -Nephrology I saw . Dara Louise today for follow-up. she is interviewed, examined and meds/ labs Have been reviewed. 23-year-old female with past medical history significant for end-stage renal disease on hem odialysis 3 times a week M,W,F secondary to henoch-Schnlein purpura, hypertension, asthma , ex-smoker, dilated cardiomyopathy -ejection fraction 30 to 35% with grade 3 diastolic dysf unction, moderate mitral valve regurgitation, severe tricuspid regurgitation, severe pulmona ry hypertension, recent admission in May 2018 with bilateral pleural effusion and ascites requiring thoracocentesis as well as paracentesis at that time. admitted with worsening shortness of breath along with cough/ Parainfluenza positive. CT chest done showed right-sided pleural effusion Nephrology consulted for evaluation and management of ESRD Review of Systems: The patient occasionally has pruritis & Abdominal discomfort.She reports no bowel movement in two days. Nausea reported. Poor appetite. Physical Exam Blood pressure 109/56, pulse 81, temperature 98.3 F (36.8 C), temperature source Oral, resp. rate 18, height 1.702 m (5' 7"), weight 63 kg (138 lb 14.2 oz), SpO2 92 %, not current ly . Intake/Output Summary (Last 24 hours) at 07/21/18 1024 Last data filed at 07/20/18 1323 Gross per 24 hour Intake 800 ml Output 2800 ml Net -2000 ml Constitutional: pt appears without distress. HENT: Normocephalic and atraumatic. Oropharynx is clear. No oropharyngeal exudate. Neck: No JVD present. Cardiovascular: Normal rate. no gallop and no friction rub. Pulmonary/Chest: No stridor. No respiratory distress. Pt has no wheezes, no rales. Abdominal: There is no distension. There is no tenderness and no rebound or guarding. Musculoskeletal: pt exhibits No LE edema in lower extremities Lymphadenopathy: there is no cervical adenopathy. Neurological: pt is alert and oriented to person, place, and time. There is no asterixis. N o facial asymmetry. Skin: Skin is warm . No rash noted. Access; pt has left AVF. It has good thrill and bruit Laboratory data most recent pertinent labs from 07/21/2018 Lab Results Component Value Date WBC 4.91 07/21/2018 HGB 11.0 (L) 07/21/2018 PLT 153 07/21/2018 NA 136 07/21/2018 K 4.1 07/21/2018 CL 98 (L) 07/21/2018 CO2 30 07/21/2018 ANIONGAP 12 07/21/2018 BUN 26 (H) 07/21/2018 CREATININE 4.6 (H) 07/21/2018 CA 9.7 07/21/2018 PHOS 8.0 (H) 07/20/2018 MG 2.6 (H) 07/19/2018 EGFR 12 (L) 07/21/2018 Assessment and Plan: ESRD: will plan HD Monday for UF and clearance. Monitor volume closely. Access: functioning well Bone-Mineral Disease management: Calcium ; controlled Phos : Uncontrolled. Keep low dietary phos intake . currently on renvela 3 per meal. Monitor Anemia management: adjust epo to keep target Hb between 10-12. Fluid status: Fluid Restriction . Restrict sodium intake to 2 Grams per 24 hrs HTN: BP is reasonably controlled on the current regimen. Nutrition: liberal protein intake low sodium , low potassium and low phos. Dose all of meds to an estimated GFR of less than 10 cc/ min. Magnesium and aluminum containing antacids should be avoided. Magnesium or phosphorus containing laxatives should be avoided. Billie Gupta MD FACP,FASN 07/21/2018 onversion Transa ction, Provider Unknown - 07/21/2018 6:15 AM PDT Nurse Progress Note by Gris Hawk RN at 07/21/18614 Author: Gris Hawk RN Service: (none) Author Type: Registered Nurse Filed: 07/21/18614 Date of Service: 07/21/18614 Status: Signed Vegetable Canner: Gris Hawk RN (Registered Nurse) Medicated for pain x1, nausea x1. No other acute changes noted. End of shift review complet e. onver arturo Transaction, Provider Unknown - 07/20/2018 7:44 PM PDT Nurse Progress Note by Francesca Bustos RN at 07/20/181943 Author: Francesca Bustos RN Service: (none) Author Type: Registered Nurse Filed: 07/20/181945 Date of Service: 07/20/181943 Status: Signed Vegetable Canner: Francesca Bustos RN (Registered Nurse) No significant changes from shift assessment. No falls or new signs of skin breakdown. Pt p ain well controlled with PRNs (see MAR). No complaints of nausea or SOB. VSS for remainder of shift. WCM End of shift chart check done. onver arturo Transaction, Provider Unknown - 07/20/2018 4:25 PM PDT Progress Notes by Prashanth Estevez RN at 07/20/181624 Author: Prashanth Estevez RN Service: (none) Author Type: Registered Nurse Filed: 07/20/181624 Date of Service: 07/20/181624 Status: Signed Vegetable Canner: Prashanth Estevez RN (Registered Nurse) Infection Prevention Note: Isolation requirements due to positive respiratory panel result. See below for isolation re quirements: (DI - Duration of Illness) Adenovirus Droplet and Contact (DI) Metapnemovirus Contact (DI) Rhinovirus/Enterovirus Droplet *add Contact for copious, moist secretions (DI) Influenza A or B Droplet *add Contact for pediatrics (duration: five days from onset of symptoms) Parainfluenza Virus Contact (use mask per standard precuations) (DI) Respiratory Syncytial Virus (RSV) Contact for infants, young children and immunocompromi sed adults (DI) (Wear mask according to Standard Precautions) Bordetella pertussis Droplet *until 5 days of treatment completed Mycoplasma pneumoniae Droplet (DI) Prashanth Estevez [facility] blemo Sotero parker MD - 07/20/2018 4:15 PM PDT Progress Notes by Sotero Reinoso MD at 07/20/181614 Author: Sotero Reinoso MD Service: Hospitalist Author Type: Physician Filed: 07/20/181625 Date of Service: 07/20/181614 Status: Signed Vegetable Canner: Sotero Reinoso MD (Physician) [facility] Service: Hospitalist Progress Note Hospital Day: LOS: 1 day 23-year-old female with an extensive past medical history of IgA vasculitis, end-stage abdiel l disease on hemodialysis Monday and Monday (cfd engineer Dr. 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 SUBJECTIVE No acute overnight events. Patient is alert and oriented 4. No family at bedside. Jaye ent notes upper respiratory infection symptoms intensity mild to moderate. Associated wit h fatigue, weakness and malaise. Progression stable. REVIEW OF SYSTEMS: ROS As above Chronic joint pain Rash noted The patient denies fever or chills The patient denies angina, SOB, or palpitations. The patient denies abdominal pain, nausea or vomiting. OBJECTIVE Vital Signs: BP 127/59 (BP Location: Right upper arm) | Pulse 82 | Temp 98.4 F (36.9 C) (Oral) | Resp 16 | Ht 1.702 m (5' 7") | Wt 62.6 kg (138 lb 0.1 oz) | SpO2 100% | ? N o | BMI 21.62 kg/m GENERAL: Well developed, well nourished, no distress. HEENT: Normocephalic, atraumatic. EYES: PERRL, sclerae anicteric. NECK: JVD present. Supple. LUNGS: effort normal. No acute distress. HEART: Regular rate and rhythm, S1, S2 normal. II/ systolic murmur. ABDOMEN: Soft, nontender. Bowel sounds are normal in all 4 quadrants. EXTREMITIES: No edema. Radial pulses 2+ bilaterally. Femoral pulses are 2+ bilaterally wi thout bruits. DP and PT pulses are 2+ bilaterally. SKIN: Warm and dry. NEUROLOGIC: Awake, alert and oriented x 3. No focal motor deficits. PSYCHIATRIC: Appropriate, affect appears normal Nursing notes and vital signs reviewed. DATA Labs, medications, allergies and other treatment team notes reviewed. Principal Problem: Sepsis (HCC) Active Problems: ESRD on hemodialysis (HCC) SOB (shortness of breath) Moderate to severe pulmonary hypertension (HCC) Non-rheumatic mitral regurgitation Dilated cardiomyopathy (HCC) Acute hypoxemic respiratory failure (HCC) Pleural effusion on right Chronic right-sided heart failure (HCC) Hypertension Pancytopenia (HCC) Chest pain Other ascites Troponin I above reference range Anemia in ESRD (end-stage renal disease) ([facility]) ASSESSMENT & PLAN 1. Sepsis: -Hemodynamically stable. -Noted at [facility] [place] the patient was febrile with a T-max of 101. -CT chest reviewed. -Respiratory film array positive for parainfluenza 3. Blood cultures ordered-pending. -MRSA screen of the nares negative. -Initial lactate negative. -Continue with cefepime present time the next 24-48 hours based on results we will consid er down titrating therapy versus discontinuation and this was likely viral in nature. -Supportive care. -Ultrasound thoracentesis to came to bedside on 07/20 no effusion noted after extensive re view on the left side. US noted R. Sided effusion. Will order for thoracentesis on the rig ht side. 2. End-stage renal disease on hemodialysis, with incomplete session: -The patient was unable to complete 1.5 hours of hemodialysis session today prior. -Appreciate nephrology input regarding further inpatient care and management-HD later today . -Continue with phosphate binder. -Patient on renal, cardiac 2 g low sodium 1200 cc diet and will adjust fluid restriction ac cordingly. 3. Hyperkalemia: -Management as per point #2. 4. Chronic combined heart failure: -Last 2-D echocardiogram 06/12/2018 demonstrates ejection fraction of 30-35 percent, grade 3 diastolic dysfunction, moderate mitral regurgitation, severe tricuspid regurgitation and sev ere pulmonary hypertension. -Home medications valsartan 40 mg q daily (with the intention of converting to entresto) and Toprol-XL 25 mg po q daily. - The patient does follow up with outpatient information resource consultant (Dr. Mahmood) patient is tentative ly and referral to advanced heart failure center with consideration of AICD basement. Thrombocytopenia: -Chronic. -Stable, will monitor. Severe tricuspid regurgitation/moderate mitral regurgitation: -Medical management. -Maintain euvolemia Disposition: inpatient Code Status: Full Code Sotero Reinoso MD 07/20/2018 onversion Transact ion, Provider Unknown - 07/20/2018 3:07 PM PDTFormatting of this note might be different fr om the original. Case Management by Stephanie Hirsch RN at 07/20/18 1507 Author: Stephanie Hirsch RN Service: (none) Author Type: Registered Nurse Filed: 07/20/18 1514 Date of Service: 07/20/18 1507 Status: Signed Vegetable Canner: Stephanie Hirsch RN (Registered Nurse) 07/20/18 1500 Discharge Planning Evaluation Admitting Diagnosis Sepsis (r/o pneumonia) Readmission No Living Arrangements Alone Support Systems Family members;Friends/neighbors Type of Residence Private residence House type Apartment Elevator available No Steps to enter 1 Bathrooms on 1st Floor 2-Full Independent with ADL's Yes Independent with Mobility Yes Home Care Services No Caregiver after Discharge No Mental Status Oriented Prior functional status independent Power of Clothing Worker No Anticipated Discharge Plan Post Acute Care Needs None at this time Plan communicated to patient/family Yes Resources Financial concerns No Transportation issues No Patient/Family concerns No Prescription Plan Yes Name of Pharmacy [facility] [place] [facility] Previous home health equipment No Vascular access device No Ostomy/Drains/Appliances No Anticipated Disposition Facility Type Home Met with patient and discussed discharge planning, Pt is a 23 y.o., female with possible pn eumonia. Pt baseline is independent, lives alone, but has support. Patient's PCP is: Tien Nicholson Patient's insurance: Medicare/Medicaid Coverage concerns: none Medication coverage/concerns: none Rx Bedside Delivery: Community resources utilized / needed: Dialysis M/W/F @ [facility] Assistance in transportation: pov w/friends Identification of any specific education / training: tbd Barriers to Discharge / Alternative housing needed: none Anticipated DCP: Home Danae Hirsch RN,BSN,CM Yudy Arredondo ARNP - 07/20/2018 8:50 AM PDT Progress Notes by KRISHNA Nice at 07/20/18 0850 Author: KRISHNA Nice Service: Radiology Author Type: Advanced Registered Nurse Derick hancock Filed: 07/20/18 0902 Date of Service: 07/20/18 0850 Status: Signed Vegetable Canner: KRISHNA Nice (Advanced Registered Nurse Practitioner) [facility] Service: Radiology Progress Note Patient evaluated for diagnostic and therapeutic, left ultrasound-guided thoracentesis. Lottie ble to identify left pleural effusion under ultrasound at this time. Patient reports "being under her dry weight and having no problems breathing, doesn't understand why we are doing t he procedure at all". Kindly asks us to wait and see how she feels before she would like thi s procedure done in the near future. THORACENTESIS NOT PERFORMED KRISHNA Nice 07/20/2018 onversion Transact ion, Provider Unknown - 07/20/2018 6:55 AM PDTFormatting of this note might be different fr om the original. Nurse Progress Note by Nereida Edwards RN at 07/20/18654 Author: Nereida Edwards RN Service: (none) Author Type: Registered Nurse Filed: 07/20/18655 Date of Service: 07/20/18654 Status: Signed Vegetable Canner: Nereida Edwards RN (Registered Nurse) VS stable. C/O nausea but on reassessment was asleep. Repeat c/o nausea this morning. Medic ated with Zofran x1. No emesis. See care plan note for C/O abdominal pain. End of shift review complete. Nereida Edwards RN onver arturo Transaction, Provider Unknown - 07/19/2018 7:26 PM PDT Nurse Progress Note by Francesca Bustos RN at 07/19/181925 Author: Francesca Bustos RN Service: (none) Author Type: Registered Nurse Filed: 07/19/181925 Date of Service: 07/19/181925 Status: Signed Vegetable Canner: Francesca Bustos RN (Registered Nurse) No significant changes from shift assessment. No falls or new signs of skin breakdown. Pt p ain & nausea controlled with PRNs (see MAR). No complaints of SOB. VSS for remainder of shift. WCM End of shift chart check done. Antonio Carrasco MD - 07/19/2018 1:50 PM PDTFormatting of this note might be different from the orig inal. Progress Notes by Antonio Pabon MD at 07/19/18 1350 Author: Antonio Pabon MD Service: Nephrology Author Type: Physician Filed: 07/19/18 8194 Date of Service: 07/19/181349 Status: Signed Vegetable Canner: Antonio Pabon MD (Physician) [facility] Service: NEPHROLOGY Dialysis Note Dara Louise 23 y.o. [id number] female [facility] Day: LOS: 0 days 23-year-old female with past medical history significant for end-stage renal disease on hem odialysis 3 times a week secondary to henoch-Schnlein purpura, hypertension, asthma, ex-sm oker, dilated cardiomyopathy recent echocardiogram showed ejection fraction 30 to 35% with g rade 3 diastolic dysfunction, moderate mitral valve regurgitation, severe tricuspid regurgit ation, severe pulmonary hypertension, recent admission in May 2018 with bilateral pleural effusion and ascites requiring thoracocentesis as well as paracentesis at that time, chronic thrombocytopenia admitted with worsening shortness of breath along with cough/ Parainfluenz a positive. CT chest done showed right-sided pleural effusion Nephrology consulted for evaluation and management of ESRD ONSET Chronic severity severe Associated with fluid electrolyte acid base imbalances Assess need for hd/uf Seen and examined on hd with hd rn Honey tolerating hd/ uf well Access functioning well HD FLOW SHEET REVIEWED Feels better, sob improving No cp, n, v, d, fever, h/a Past Medical History Diagnosis Date Anemia Arthralgia unknown bone disease: affects back , hips , and knees Asthma Clotted dialysis access (HCC) 2014 ESRD (end stage renal disease) (HCC) Hepatitis B virus infection HSP (Henoch-Schonlein purpura) nephritis (HCC) Hypertension Past Surgical History Procedure Laterality Date ABDOMINAL SURGERY AV FISTULA PLACEMENT AV FISTULA PLACEMENT Left 04/08/2014 Procedure: AV FISTULA; Surgeon: Rik Simon MD; Location: [facility] OR; Service: Vascula r; Laterality: Left; cephalic AV FISTULA REPAIR Left 03/07/2014 Procedure: AV FISTULA - GRAFT REPAIR/REVISION; Surgeon: Rik Simon MD; Location: [facility] IN OR; Service: Vascular; Laterality: Left; DECLOT GRAFT Left 03/07/2014 Procedure: GRAFT - DECLOT; Surgeon: Rik Simon MD; Location: [facility] MAIN OR; Service: Vas cular; Laterality: Left; DIALYSIS FISTULA CREATION N/A 04/08/2014 Procedure: DIALYSIS CATHETER - INSERTION; Surgeon: Rik Simon MD; Location: [facility] MAIN OR ; Service: Vascular; Laterality: N/A; tunneled catheter LAPAROSCOPIC PERITONEAL DIALYSIS CATHETER INSERTION x2 LAPAROSCOPIC PERITONEAL DIALYSIS CATHETER INSERTION Right 07/2013 current dialysis access MWF dialysis RENAL BIOPSY RENAL BIOPSY Left 2003 SUPERFICIALIZATION OF AV FISTULA Left 06/24/2014 Procedure: AV FISTULA - SUPERFICIALIZATION; Surgeon: Rik Simon MD; Location: [facility] MAIN OR; Service: Vascular; Laterality: Left; Prescriptions Prior to Admission Medication Sig Dispense Refill Last Dose clopidogrel (PLAVIX) 75 MG tablet Take 75 mg by mouth daily. Indications: Treatment to Prevent a Blood Clot in a Vascular Stent 07/17/2018 at Unknown time metoprolol (TOPROL-XL) 25 MG 24 hr tablet Take 2 tablets by mouth daily. 60 tablet 11 at Unknown time ondansetron (ZOFRAN) 8 MG tablet Take 8 mg by mouth every 6 (six) hours as needed for N ausea. 07/18/2018 at Unknown time pantoprazole (PROTONIX) 40 MG tablet Take 1 tablet by mouth every morning before breakf ast for 60 days. 30 tablet 1 07/17/2018 at Unknown time sevelamer (RENVELA) 800 MG tablet Take 2 tablets by mouth 3 (three) times daily with me als. 180 tablet 2 07/17/2018 at Unknown time valsartan (DIOVAN) 40 MG tablet Take 1 tablet by mouth daily. 30 tablet 11 07/17/2018 at Unknown time ipratropium-albuterol (DUO-NEB) 0.5-2.5 mg/3mL Take 3 mLs by nebulization. Taking promethazine (PHENERGAN) 25 MG tablet Take 25 mg by mouth every 6 (six) hours as needed for Nausea. More than a month at Unknown time Allergies Allergen Reactions Fentanyl Itching Iodinated Diagnostic Agents Itching Pt c/o face itching during fistulagram Morphine Rash Ritalin [Methylphenidate Hcl] Other (See Comments) Patient [...] Smoking status: Former Smoker Packs/day: 0.50 Years: 2.00 Quit date: 06/28/2016 Smokeless tobacco: Never Used Alcohol use No Drug use: Yes Types: Marijuana Comment: 10.5 gm daily, trying to switch to edibles Sexual activity: Not on file Other Topics Concern Not on file Social History Narrative Lives in [facility], 2 wks ago fell at home , tripped , no loc , no injuries, full co de Scheduled Medications atorvastatin 40 mg Oral Nightly cefepime 1 g Intravenous Q24H clopidogrel 75 mg Oral Daily heparin (porcine) 5000 unit/0.5mL 5,000 Units Subcutaneous 3 times per day ipratropium-albuterol 3 mL Nebulization Q6H metoprolol 50 mg Oral Daily pantoprazole 40 mg Oral QAM AC sevelamer 1,600 mg Oral TID WC sodium bicarbonate buffer 5 mL Infiltration Once sodium chloride (PF) 10 mL Intravenous Q8H valsartan 40 mg Oral Daily Continuous Infusions PRN Medications acetaminophen OR acetaminophen, hydrALAZINE, HYDROmorphone OR HYDROmorphone, labeta lol, ondansetron OR ondansetron, polyethylene glycol Allergy: Allergies Allergen Reactions Fentanyl Itching Iodinated Diagnostic Agents Itching Pt c/o face itching during fistulagram Morphine Rash Ritalin [Methylphenidate Hcl] Other (See Comments) Patient says skin was crawling Tape [Adhesive Tape] Rash Use silk tape only OBJECTIVE Vital Signs: BP 136/77 (BP Location: Right upper arm) | Pulse 102 | Temp 97.6 F (36.4 C) (Axillary ) | Resp 16 | Ht 1.702 m (5' 7") | Wt 67.1 kg (147 lb 14.9 oz) | SpO2 94% Comment: Room Air | ? No | BMI 23.17 kg/m I&O Detailed Table: I/O last 3 completed shifts: In: 500 [P.O.:500] Out: - Weight change: Examination: seen on hd with hd gisselle Méndez APPEARANCE: The patient is a pleasant sitting in the bed comfortably VITALS: Reviewed as listed. HEAD: NC/AT. LUNGS: Decreased breath sounds at the right base HEART: S1, S2, no pericardial rub noted. EXTREMITIES: trace pedal edema noted. . NEUROLOGIC: No gross focal motor deficit noted. PSYCH: The patient is alert and oriented x 3 L arm avf functioning well LABS: Recent Results (from the past 24 hour(s)) Troponin I Collection Time: 07/19/18 12:35 AM Result Value Ref Range TROPONIN I 0.119 (H) 0.00 - 0.04 ng/mL test, serum Collection Time: 07/19/18 12:35 AM Result Value Ref Range TEST,SERUM NEGATIVE NEGATIVE Procalcitonin Collection Time: 07/19/18 12:35 AM Result Value Ref Range PROCALCITONIN 0.81 (H) <0.5 ng/mL Septic Lactic Acid Collection Time: 07/19/18 12:38 AM Result Value Ref Range LACTIC ACID 0.6 0.4 - 2.0 mmol/L Respiratory Filmarray Collection Time: 07/19/18 1:32 AM Result Value Ref Range ADENOVIRUS Not Detected Not Detected CORONAVIRUS 229E Not Detected Not Detected CORONAVIRUS HKU1 Not Detected Not Detected CORONAVIRUS NL63 Not Detected Not Detected CORONAVIRUS OC43 Not Detected Not Detected HUMAN METAPNEUMOVIRUS Not Detected Not Detected HUMAN RHINO/ENTERO Not Detected Not Detected INFLUENZA A Not Detected Not Detected INFLUENZA B Not Detected Not Detected PARAINFLUENZA 1 Not Detected Not Detected PARAINFLUENZA 2 Not Detected Not Detected PARAINFLUENZA 3 DETECTED (A) Not Detected PARAINFLUENZA 4 Not Detected Not Detected RESP SYNCYTIAL VIRUS Not Detected Not Detected BORDETELLA PERTUSSIS Not Detected Not Detected CHLAMYDIAE PNEUMONIAE Not Detected Not Detected MYCOPLASMA PNEUMONIAE Not Detected Not Detected RESP PANEL INTERP Testing performed by Molecular Methodology MRSA by PCR Collection Time: 07/19/18 1:34 AM Result Value Ref Range SOURCE NARES(NOSE) MRSA PCR NEGATIVE NEGATIVE Septic Lactic Acid Collection Time: 07/19/18 6:10 AM Result Value Ref Range LACTIC ACID 0.8 0.4 - 2.0 mmol/L CBC W/Auto Diff (Reflex to Manual) Collection Time: 07/19/18 6:10 AM Result Value Ref Range WBC 4.03 3.80 - 11.00 K/uL RBC 3.20 (L) 3.70 - 5.10 M/uL HGB 11.7 11.3 - 15.5 g/dL HCT 35.4 34.0 - 46.0 % MCV 110.5 (H) 80.0 - 100.0 fl MCH 36.6 (H) 27.0 - 34.0 pg MCHC 33.1 32.0 - 35.5 g/dL RDW SD 64.3 (H) 37 - 53 fl PLT 140 (L) 150 - 400 K/uL MPV 9.2 fl DIFF TYPE AUTOMATED NEUTROPHILS 67.10 % LYMPHOCYTES 18.23 % MONOCYTES 9.05 % EOSINOPHILS 4.82 % BASOPHILS 0.80 % NEUTROPHILS ABS 2.70 1.90 - 7.40 K/uL LYMPHOCYTES ABS 0.74 (L) 1.00 - 3.90 K/uL MONOCYTES ABS 0.37 0.00 - 0.80 K/uL EOSINOPHILS ABS 0.19 0.00 - 0.50 K/uL BASOPHILS ABS 0.03 0.00 - 0.10 K/uL MORPHOLOGY 1+ Magnesium Collection Time: 07/19/18 6:10 AM Result Value Ref Range MAGNESIUM 2.6 (H) 1.7 - 2.4 mg/dL Phosphorus Collection Time: 07/19/18 6:10 AM Result Value Ref Range PHOSPHORUS 6.3 (H) 2.3 - 4.8 mg/dL Comprehensive Metabolic Panel Collection Time: 07/19/18 6:10 AM Result Value Ref Range SODIUM 136 135 - 145 mmol/L POTASSIUM 5.6 (H) 3.5 - 4.9 mmol/L CHLORIDE 98 (L) 99 - 109 mmol/L CO2 26 23 - 32 mmol/L ANION GAP AGAP 18 5 - 20 mmol/L GLUCOSE 87 65 - 99 mg/dL BUN 48 (H) 8 - 25 mg/dL CREATININE 7.7 (H) 0.50 - 1.00 mg/dL BUN/CREAT 6 CALCIUM 9.8 8.5 - 10.5 mg/dL TOTAL PROTEIN 7.9 6.3 - 8.2 g/dL Albumin 3.6 3.6 - 5.0 g/dL GLOBULIN 4.3 1.3 - 4.9 g/dL A/G 0.8 (L) 1.0 - 2.4 TBIL 1.3 0.1 - 1.5 mg/dL ALK PHOS 170 (H) 35 - 115 U/L AST 39 10 - 45 U/L ALT 54 10 - 65 U/L EGFR 7 (L) >60 mL/min/1.73m2 Troponin I Collection Time: 07/19/18 6:10 AM Result Value Ref Range TROPONIN I 0.102 (H) 0.00 - 0.04 ng/mL Troponin I Collection Time: 07/19/18 11:48 AM Result Value Ref Range TROPONIN I 0.077 (H) 0.00 - 0.04 ng/mL IMAGING: Ct Chest Without Contrast Result Date: 07/19/2018 CT CHEST WITHOUT CONTRAST CLINICAL INFORMATION: Pneumonia. Hypoxia, Febrile illness, Recur rent pleural effusion on right, History of end stage renal disease COMPARISON: CT CHEST WO Aileen ONTRAST (05/26/2018); PROCEDURE: Axial images through the chest. Multiplanar reconstructions. At least one of the following CT dose optimization techniques were used: Automated exposure control; Adjustment of mA and/or kV according to patient size; Use of iterative reconstruct ion technique. FINDINGS: Lungs, Pleura and Airways: Large right pleural effusion. Associated volume loss and airspace disease involving the right mid to lower lung, likely atelectasis. Mosaic attenuation of the lung parenchyma identified, most prominent in the left lower lung . Resolution of the left pleural effusion. Mediastinum: Borderline cardiomegaly. No pericar dial effusion seen. Aorta does not appear aneurysmal. Lymph Nodes: Unchanged multiple enlarg ed mediastinal lymph nodes, for example Prevascular lymph node on series 3, image 24 measuri ng 1.6 cm x 1.1 cm. Upper Abdomen: At least small amount of ascites seen, partially visualiz ed. BODY WALL Soft Tissues: Mild anasarca. Bones: No acute or destructive osseous process se en Large left pleural effusion, unchanged. Associated atelectasis noted along the right lung. Mosaic attenuation of the left lung parenchyma, uncertain etiology. Again, differential con siderations for this finding are broad, to include parenchymal, vascular or small airway obs tructive process. Partially visualized at least small amount of ascites. Borderline cardiome viki. Enlarged mediastinal lymph nodes, unchanged. Signed by: Eliza Lenz, Brian Sign Date/Ti me: 07/19/2018 9:13 AM Patient's old records, imaging and labs were reviewed in detail and summarized. PROBLEM LIST Principal Problem: Sepsis (HCC) Active Problems: ESRD on hemodialysis SOB (shortness of breath) Moderate to severe pulmonary hypertension (HCC) Non-rheumatic mitral regurgitation Dilated cardiomyopathy (HCC) Acute hypoxemic respiratory failure (HCC) Pleural effusion on right Chronic right-sided heart failure (HCC) Essential hypertension Pancytopenia (HCC) Chest pain Other ascites Troponin I above reference range ASSESSMENT & PLAN HYPERKALEMIA Getting hemodialysis now Likely due to incomplete dialysis yesterday, will do 3-hour hemodialysis today Low k diet Watch k level closely Telemetry Lab Results Component Value Date K 5.6 (H) 07/19/2018 K 4.7 06/01/2018 K 4.3 05/31/2018 ESRD ON HD Plan for hemodialysis/ultrafiltration today as patient only did 1-1/2-hour of dialysis yest blakeay Seen and examined on hd tolerating hd/ uf well Access functioning well HD FLOW SHEET REVIEWED Assess daily for need for hd & uf Orders in the chart Fluid restriction 1.2 litres/24 hours Strict I & O Daily RFP Renal diet Daily weights will help with subsequent hd with uf Dose all meds per protocol for ESRD on hd ANEMIA in ESRD No need for Epogen if hemoglobin above 11 EPOGEN TO KEEP HGB 10-11 Lab Results Component Value Date HGB 11.7 07/19/2018 HGB 10.7 (L) 06/01/2018 HGB 10.9 (L) 05/31/2018 HYPERTENSION controlled WATCH BP CLOSELY DURING HOSPITALIZATION LOW NA DIET Will adjust BP meds according to BP readings BP Readings from Last 3 Encounters: 07/19/18 136/77 06/28/18 134/82 06/14/18 126/80 HYPERPHOSPHATEMIA Uncontrolled LOW P DIET PO4 BINDERS Renvela with meals Lab Results Component Value Date PHOS 6.3 (H) 07/19/2018 PHOS 6.3 (H) 05/28/2018 PHOS 8.0 (H) 05/27/2018 HYPOALBUMINEMIA INCREASE PROTEIN INTAKE Lab Results Component Value Date ALB 3.6 07/19/2018 ALB 3.0 (L) 06/01/2018 ALB 3.0 (L) 05/31/2018 Respiratory failure/right-sided pleural effusion Positive for Parainfluenza 3 Per primary team CASE DISCUSSED IN DETAIL WITH PATIENT/ care team, ANSWERS ALL QUESTIONS IN DETAIL, VERBALIZ ES UNDERSTANDING ANTONIO PABON MD 07/19/2018 TIEN NICHOLSON Seen earlier and charting completed later Dictation software, Green[employer]ocket, used which may contain error for similar sounding words even af ter review. Personal communication requested for any clarification. onversion Transaction, Provider Unknown - 07/19/2018 10:20 AM PDTFormatting of this note might be different from t he original. Nurse Progress Note by Francesca Bustos RN at 07/19/18 1020 Author: Francesca Bustos RN Service: (none) Author Type: Registered Nurse Filed: 07/19/18 194 Date of Service: 07/19/18 1020 Status: Signed Vegetable Canner: Francesca Bustos RN (Registered Nurse) No significant changes from shift assessment. No falls or new signs of skin breakdown. Pt p ain, itching & nausea controlled with PRNs (see MAR). VSS for remainder of shift. WCM End of shift chart check done. blemo Sotero parker MD - 07/19/2018 8:01 AM PDT Progress Notes by Stoero Reinoso MD at 07/19/18 0801 Author: Sotero Reinoso MD Service: Hospitalist Author Type: Physician Filed: 07/19/18 1427 Date of Service: 07/19/18 0801 Status: Addendum Vegetable Canner: Sotero Reinoso MD (Physician) Related Notes: Original Note by Sotero Reinoso MD (Physician) filed at 07/19/18 9687 [facility] Service: Hospitalist Progress Note Hospital Day: LOS: 0 days 23-year-old female with an extensive past medical history of IgA vasculitis, end-stage abdiel l disease on hemodialysis Monday and Monday (cfd engineer Dr. 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 SUBJECTIVE No acute overnight events. Patient is alert and oriented 4. No family at bedside. Jaye ent notes upper respiratory infection symptoms intensity moderate. Associated with fatigu e, weakness and malaise. Abdominal pain mild. Transient. Associated with nausea, no vom iting. Alleviated with antiemetic medications. Progression stable with improvement from admission. REVIEW OF SYSTEMS: ROS As above Chronic joint pain Rash noted Other systems reviewed and are otherwise negative OBJECTIVE Vital Signs: BP (!) 144/98 (BP Location: Right upper arm) | Pulse 105 | Temp 97.9 F (36.6 C) (Axil abi) | Resp 20 | Ht 1.702 m (5' 7") | Wt 67.1 kg (147 lb 14.9 oz) | SpO2 93% | Breastf eeding? No | BMI 23.17 kg/m GENERAL: Well developed, well nourished, in no distress. Appears approximately stated age . HEENT: Normocephalic, atraumatic. EYES: PERRL, sclerae anicteric. NECK: JVD present. Supple. LUNGS: effort normal. No acute distress. HEART: Regular rate and rhythm, S1, S2 normal. II/ systolic murmur. ABDOMEN: Soft, nontender. Bowel sounds are normal in all 4 quadrants. EXTREMITIES: No edema. Radial pulses 2+ bilaterally. Femoral pulses are 2+ bilaterally wi thout bruits. DP and PT pulses are 2+ bilaterally. SKIN: Warm and dry. NEUROLOGIC: Awake, alert and oriented x 3. No focal motor deficits. PSYCHIATRIC: Appropriate, affect appears normal DATA Labs, medications, allergies and other treatment team notes reviewed. Imaging reviewed. Principal Problem: Sepsis (HCC) Active Problems: ESRD on hemodialysis SOB (shortness of breath) Moderate to severe pulmonary hypertension (HCC) Non-rheumatic mitral regurgitation Dilated cardiomyopathy (HCC) Acute hypoxemic respiratory failure (HCC) Pleural effusion on right Chronic right-sided heart failure (HCC) Essential hypertension Pancytopenia (HCC) Chest pain Other ascites Troponin I above reference range ASSESSMENT & PLAN 1. Sepsis: -Hemodynamically stable except for tachycardia. -Noted at [place]' the patient was febrile with a T-max of 101. -Follow up CT chest. -Respiratory film array positive for parainfluenza 3. Blood cultures ordered. -MRSA screen of the nares negative. -Initial lactate negative. -Continue with cefepime present time the next 24-48 hours based on results we will consid er down titrating therapy versus discontinuation and this was likely viral in nature. -Supportive care. Addendum: -We will order ultrasound of left-sided pleural effusion with criteria for Light's criteria ordered. 2. End-stage renal disease on hemodialysis, with incomplete session: -The patient was unable to complete 1.5 hours of hemodialysis session today prior. -Appreciate nephrology input regarding further inpatient care and management-HD later today . -Continue with phosphate binder. -Patient on renal, cardiac 2 g low sodium 1200 cc diet and will adjust fluid restriction ac cordingly. 3. Hyperkalemia: -Management as per point #2. 4. Chronic combined heart failure: -Last 2-D echocardiogram 06/12/2018 demonstrates ejection fraction of 30-35 percent, grade 3 diastolic dysfunction, moderate mitral regurgitation, severe tricuspid regurgitation and sev ere pulmonary hypertension. -Home medications valsartan 40 mg q daily (with the intention of converting to entresto) and Toprol-XL 25 mg po q daily. - The patient does follow up with outpatient information resource consultant (Dr. Mahmood) patient is tentative ly and referral to advanced heart failure center with consideration of AICD basement. Thrombocytopenia: -Chronic. -Stable, will monitor. Severe tricuspid regurgitation/moderate mitral regurgitation: -Medical management. -Maintain euvolemia Disposition: inpatient Code Status: Full Code Sotero Reinoso MD 07/19/2018 onversion Transact ion, Provider Unknown - 07/19/2018 1:30 AM PDTFormatting of this note might be different fr om the original. Progress Notes by Jae Gutierres RPH at 07/19/18129 Author: Jae Gutierres RPH Service: Pharmacy Author Type: Pharmacist Filed: 07/19/18129 Date of Service: 07/19/18129 Status: Signed Vegetable Canner: Jae Gutierres RPH (Pharmacist) Renal Dosing Monitoring: S: Renal dose monitoring per protocol. O: Patient on HD - M/W/F A/P: Changed Cefepime from 2g Q12H to 1g Q24H. Pharmacist: Jae Gutierres PharmD docume nted in this encounter Plan of Treatment +--------+---------+ + + + | Date | Type | Specialty | Care Team | Description | +--------+---------+ + + + | 03/05/ | Office | Pulmonology | Denny Alexander | | | 2018 | Visit | | Deny Briggs MD [address] | | | | | | [address] | | | | | | [place] [address] | | | | | | [phone] | | | | | | | | +--------+---------+ + + + documented as of this encounter Procedures + +--------+ + + + | Procedure Name | Priori | Date/Time | Associated Diagnosis | Comments | | | ty | | | | + +--------+ + + + | CBC NO DIFFERENTIAL | Routin | 07/24/2018 | | Results for this | | | e | 6:04 AM | | procedure are in the | | | | PDT | | results section. | + +--------+ + + + | RENAL FUNCTION PANEL | Routin | 07/24/2018 | | Results for this | | | e | 6:04 AM | | procedure are in the | | | | PDT | | results section. | + +--------+ + + + | EXTERNAL LAB: CBC | Routin | 07/23/2018 | | Results for this | | | e | 5:32 AM | | procedure are in the | | | | PDT | | results section. | + +--------+ + + + | MAGNESIUM | Routin | 07/23/2018 | | Results for this | | | e | 5:32 AM | | procedure are in the | | | | PDT | | results section. | + +--------+ + + + | RENAL FUNCTION PANEL | Routin | 07/23/2018 | | Results for this | | | e | 5:32 AM | | procedure are in the | | | | PDT | | results section. | + +--------+ + + + | EXTERNAL LAB: | Timed | 07/21/2018 | | Results for this | | PROTEIN, TOTAL | | 2:00 PM | | procedure are in the | | | | PDT | | results section. | + +--------+ + + + | LACTATE | Timed | 07/21/2018 | | Results for this | | DEHYDROGENASE, BODY | | 2:00 PM | | procedure are in the | | FLUID | | PDT | | results section. | + +--------+ + + + | CULTURE, BODY FLUID, | Timed | 07/21/2018 | | Results for this | | STERILE, SMEAR, | | 2:00 PM | | procedure are in the | | WITH ANAEROBES | | PDT | | results section. | + +--------+ + + + | PH, BODY FLUID | Timed | 07/21/2018 | | Results for this | | | | 2:00 PM | | procedure are in the | | | | PDT | | results section. | + +--------+ + + + | LACTATE | Routin | 07/21/2018 | | Results for this | | DEHYDROGENASE | e | 12:48 PM | | procedure are in the | | | | PDT | | results section. | + +--------+ + + + | HEPATIC FUNCTION | Routin | 07/21/2018 | | Results for this | | PANEL | e | 12:48 PM | | procedure are in the | | | | PDT | | results section. | + +--------+ + + + | XR CHEST 1 VIEW | Routin | 07/21/2018 | | Results for this | | | e | 11:03 AM | | procedure are in the | | | | PDT | | results section. | + +--------+ + + + | US GUIDED | Routin | 07/21/2018 | | Results for this | | THORACENTESIS WO | e | 10:38 AM | | procedure are in the | | CHEST TUBE | | PDT | | results section. | + +--------+ + + + | EXTERNAL LAB: CBC | Routin | 07/21/2018 | | Results for this | | | e | 6:00 AM | | procedure are in the | | | | PDT | | results section. | + +--------+ + + + | BASIC METABOLIC | Routin | 07/21/2018 | | Results for this | | PANEL | e | 6:00 AM | | procedure are in the | | | | PDT | | results section. | + +--------+ + + + | POTASSIUM | Routin | 07/20/2018 | | Results for this | | | e | 4:25 PM | | procedure are in the | | | | PDT | | results section. | + +--------+ + + + | US CHEST | Routin | 07/20/2018 | | Results for this | | | e | 9:05 AM | | procedure are in the | | | | PDT | | results section. | + +--------+ + + + | EXTERNAL LAB: CBC | Routin | 07/20/2018 | | Results for this | | | e | 6:25 AM | | procedure are in the | | | | PDT | | results section. | + +--------+ + + + | PTT | Routin | 07/20/2018 | | Results for this | | | e | 6:25 AM | | procedure are in the | | | | PDT | | results section. | + +--------+ + + + | PROTIME INR | Routin | 07/20/2018 | | Results for this | | | e | 6:25 AM | | procedure are in the | | | | PDT | | results section. | + +--------+ + + + | RENAL FUNCTION PANEL | Routin | 07/20/2018 | | Results for this | | | e | 6:25 AM | | procedure are in the | | | | PDT | | results section. | + +--------+ + + + | TROPONIN I | Routin | 07/19/2018 | | Results for this | | | e | 11:48 AM | | procedure are in the | | | | PDT | | results section. | + +--------+ + + + | CULTURE, BLOOD, 2ND | Timed | 07/19/2018 | | Results for this | | SPECIMEN (NON-ORD) | | 9:25 AM | | procedure are in the | | | | PDT | | results section. | + +--------+ + + + | CULTURE, BLOOD | Timed | 07/19/2018 | | Results for this | | | | 8:53 AM | | procedure are in the | | | | PDT | | results section. | + +--------+ + + + | CT CHEST WO CONTRAST | Routin | 07/19/2018 | | Results for this | | | e | 8:51 AM | | procedure are in the | | | | PDT | | results section. | + +--------+ + + + | EXTERNAL LAB: CBC | Routin | 07/19/2018 | | Results for this | | | e | 6:10 AM | | procedure are in the | | | | PDT | | results section. | + +--------+ + + + | TROPONIN I | Routin | 07/19/2018 | | Results for this | | | e | 6:10 AM | | procedure are in the | | | | PDT | | results section. | + +--------+ + + + | PHOSPHORUS | Routin | 07/19/2018 | | Results for this | | | e | 6:10 AM | | procedure are in the | | | | PDT | | results section. | + +--------+ + + + | MAGNESIUM | Routin | 07/19/2018 | | Results for this | | | e | 6:10 AM | | procedure are in the | | | | PDT | | results section. | + +--------+ + + + | LACTIC ACID | Routin | 07/19/2018 | | Results for this | | | e | 6:10 AM | | procedure are in the | | | | PDT | | results section. | + +--------+ + + + | COMPREHENSIVE | Routin | 07/19/2018 | | Results for this | | METABOLIC PANEL | e | 6:10 AM | | procedure are in the | | | | PDT | | results section. | + +--------+ + + + | MRSA NAAT | Timed | 07/19/2018 | | Results for this | | | | 1:34 AM | | procedure are in the | | | | PDT | | results section. | + +--------+ + + + | HISTORICAL | Timed | 07/19/2018 | | Results for this | | MICROBIOLOGY RESULT | | 1:32 AM | | procedure are in the | | | | PDT | | results section. | + +--------+ + + + | LACTIC ACID | Routin | 07/19/2018 | | Results for this | | | e | 12:38 AM | | procedure are in the | | | | PDT | | results section. | + +--------+ + + + | PROCALCITONIN, SERUM | Routin | 07/19/2018 | | Results for this | | | e | 12:35 AM | | procedure are in the | | | | PDT | | results section. | + +--------+ + + + | TROPONIN I | Routin | 07/19/2018 | | Results for this | | | e | 12:35 AM | | procedure are in the | | | | PDT | | results section. | + +--------+ + + + | , SERUM, | Routin | 07/19/2018 | | Results for this | | QUAL | e | 12:35 AM | | procedure are in the | | | | PDT | | results section. | + +--------+ + + + documented in this encounter Results CBC no Differential (07/24/2018 6:04 AM PDT) + + + + + + | Component | Value | Ref Range | Performed | Pathologist | | | | | At | Signature | + + + + + + | WBC | 7.05 | 3.80 - 11.00 | EXTERNAL | | | | | K/uL | LAB | | + + + + + + | RED CELL | 3.15 (L) | 3.70 - 5.10 | EXTERNAL | | | COUNT | | M/uL | LAB | | + + + + + + | Hgb | 11.7 | 11.3 - 15.5 | EXTERNAL | | | | | g/dL | LAB | | + + + + + + | Hematocrit, | 34.8 | 34.0 - 46.0 % | EXTERNAL | | | POC | | | LAB | | + + + + + + | MCV | 110.7 (H) | 80.0 - 100.0 fl | EXTERNAL | | | | | | LAB | | + + + + + + | MCH | 37.1 (H) | 27.0 - 34.0 pg | EXTERNAL | | | | | | LAB | | + + + + + + | MCHC | 33.5 | 32.0 - 35.5 | EXTERNAL | | | | | g/dL | LAB | | + + + + + + | RDW-CV | 61.7 (H) | 37 - 53 fl | EXTERNAL | | | | | | LAB | | + + + + + + | Platelet | 175 | 150 - 400 K/uL | EXTERNAL | | | Count | | | LAB | | | Plasma | | | | | + + + + + + | MPV | 9.1Comment: Testing | fl | EXTERNAL | | | | performed at [facility] [place];[address] | | LAB | | | | [address];[place] | | | | | | [id number] | | | | + + + + + + + + | Specimen | + + | | + + + +---------+ + + | Performing | Address | City/State/Zipcode | Phone Number | | Organization | | | | + +---------+ + + | EXTERNAL LAB | | | | + +---------+ + + Renal Function Panel (07/24/2018 6:04 AM PDT) + + + + + + | Component | Value | Ref Range | Performed | Pathologist | | | | | At | Signature | + + + + + + | Na | 140 | 135 - 145 | EXTERNAL | | | | | mmol/L | LAB | | + + + + + + | K | 4.4 | 3.5 - 4.9 | EXTERNAL | | | | | mmol/L | LAB | | + + + + + + | Cl | 100 | 99 - 109 mmol/L | EXTERNAL | | | | | | LAB | | + + + + + + | CO2 | 28 | 23 - 32 mmol/L | EXTERNAL | | | | | | LAB | | + + + + + + | Anion Gap | 16 | 5 - 20 mmol/L | EXTERNAL | | | | | | LAB | | + + + + + + | Glucose, | 117 (H) | 65 - 99 mg/dL | EXTERNAL | | | Fasting | | | LAB | | + + + + + + | BUN | 30 (H) | 8 - 25 mg/dL | EXTERNAL | | | | | | LAB | | + + + + + + | Creatinine | 5.48 (H) | 0.50 - 1.00 | EXTERNAL | | | | | mg/dL | LAB | | + + + + + + | Calcium | 10.2 | 8.5 - 10.5 | EXTERNAL | | | | | mg/dL | LAB | | + + + + + + | Albumin | 4.2 | 3.6 - 5.0 g/dL | EXTERNAL | | | | | | LAB | | + + + + + + | PHOSPHORUS | 4.1 | 2.3 - 4.8 mg/dL | EXTERNAL | | | | | | LAB | | + + + + + + | Estimated | 10 (L)Comment: GFR <60: | mL/min/1.73m2 | EXTERNAL [...] | | | | | | MDRD IDNJ traceable | | | | | | equation.Testing | | | | | | performed at [facility] [place];[address] | | | | | | [facility];[place], [place] | | | | | | [id number] | | | | + + + [...] + +---------+ + + External Lab: [facility] 07/23/2018 5:32 AM PDT) + + + + + + | Component | Value | Ref Range | Performed | Pathologist | | | | | At | Signature | + + + + + + | WBC | 3.39 (L) | 3.80 - 11.00 | EXTERNAL | | | | | K/uL | LAB | | + + + + + + | RED CELL | 3.21 (L) | 3.70 - 5.10 | EXTERNAL | | | COUNT | | M/uL | LAB | | + + + + + + | Hgb | 11.5 | 11.3 - 15.5 | EXTERNAL | | | | | g/dL | LAB | | + + + + + + | Hematocrit, | 34.7 | 34.0 - 46.0 % | EXTERNAL | | | POC | | | LAB | | + + + + + + | MCV | 108.2 (H) | 80.0 - 100.0 fl | EXTERNAL | | | | | | LAB | | + + + + + + | MCH | 35.9 (H) | 27.0 - 34.0 pg | EXTERNAL | | | | | | LAB | | + + + + + + | MCHC | 33.2 | 32.0 - 35.5 | EXTERNAL | | | | | g/dL | LAB | | + + + + + + | RDW-CV | 61.7 (H) | 37 - 53 fl | EXTERNAL | | | | | | LAB | | + + + + + + | Platelet | 153 | 150 - 400 K/uL | EXTERNAL | | | Count | | | LAB | | | Plasma | | | | | + + + + + + | MPV | 9.4 | fl | EXTERNAL | | | | | | LAB | | + + + + + + | Differentia | AUTOMATED | | EXTERNAL | | | l Type | | | LAB | | + + + + + + | % Segmented | 89.68 | % | EXTERNAL | | | | | | LAB | | | Neutrophils | | | | | + + + + + + | % | 8.19 | % | EXTERNAL | | | Lymphocytes | | | LAB | | + + + + + + | % Monocytes | 1.61 | % | EXTERNAL | | | | | | LAB | | + + + + + + | % | 0.19 | % | EXTERNAL | | | Eosinophils | | | LAB | | + + + + + + | % Basophils | 0.33 | % | EXTERNAL | | | | | | LAB | | + + + + + + | Absolute | 3.04 | 1.90 - 7.40 | EXTERNAL | | | Segmented | | K/uL | LAB | | | Neutrophils | | | | | + + + + + + | Absolute | 0.28 (L) | 1.00 - 3.90 | EXTERNAL | | | Lymphocytes | | K/uL | LAB | | + + + + + + | Absolute | 0.06 | 0.00 - 0.80 | EXTERNAL | | | Monocytes | | K/uL | LAB | | + + + + + + | Absolute | 0.01 | 0.00 - 0.50 | EXTERNAL | | | Eosinophils | | K/uL | LAB | | + + + + + + | Absolute | 0.01 | 0.00 - 0.10 | EXTERNAL | | | Basophils | | K/uL | LAB | | + + + + + + | RBC | 1+ | | EXTERNAL | | | Morphology | Comment: | | LAB | | | | MACRO | | | | | | NORMAL PLT MORPH | | | | | | | | | | + + + + + + | Differentia | SLIDE SCANNED, AGREES | | EXTERNAL | | | l Comments | WITH AUTOMATED | | LAB | | | | RESULTS.Comment: Testing | | | | | | performed at [facility];[address] | | | | | [address] [facility];[place], [place] | | | | | | [address] | | | | + + + + + + + + | Specimen | + + | Blood specimen | | (specimen) | + + + +---------+ + + | Performing | Address | City/State/Zipcode | Phone Number | | Organization | | | | + +---------+ + + | EXTERNAL LAB | | | | + +---------+ + + Magnesium (07/23/2018 5:32 AM PDT) + + + + + + | Component | Value | Ref Range | Performed | Pathologist | | | | | At | Signature | + + + + + + | Magnesium | 2.6 (H)Comment: Testing | 1.7 - 2.4 mg/dL | EXTERNAL | | | | performed at [facility], [address] | | LAB | | | | [facility], | | | | | | [place] [address] | | | | + + + [...] + +---------+ + + Renal Function Panel (07/23/2018 5:32 AM PDT) + + + + + + | Component | Value | Ref Range | Performed | Pathologist | | | | | At | Signature | + + + + + + | Na | 136 | 135 - 145 | EXTERNAL | | | | | mmol/L | LAB | | + + + + + + | K | 4.8 | 3.5 - 4.9 | EXTERNAL | | | | | mmol/L | LAB | | + + + + + + | Cl | 97 (L) | 99 - 109 mmol/L | EXTERNAL | | | | | | LAB | | + + + + + + | CO2 | 27 | 23 - 32 mmol/L | EXTERNAL | | | | | | LAB | | + + + + + + | Anion Gap | 17 | 5 - 20 mmol/L | EXTERNAL | | | | | | LAB | | + + + + + + | Glucose, | 154 (H) | 65 - 99 mg/dL | EXTERNAL | | | Fasting | | | LAB | | + + + + + + | BUN | 42 (H) | 8 - 25 mg/dL | EXTERNAL | | | | | | LAB | | + + + + + + | Creatinine | 8.3 (H) | 0.50 - 1.00 | EXTERNAL | | | | | mg/dL | LAB | | + + + + + + | Calcium | 9.5 | 8.5 - 10.5 | EXTERNAL | | | | | mg/dL | LAB | | + + + + + + | Albumin | 2.9 (L) | 3.6 - 5.0 g/dL | EXTERNAL | | | | | | LAB | | + + + + + + | PHOSPHORUS | 5.8 (H) | 2.3 - 4.8 mg/dL | [...] | | | | | | MDRD IDNJ traceable | | | | | | equation.Testing | | | | | | performed at [facility], [address] | | | | | | [facility], | | | | | | [place] [address] | | | | + + + + + + + + | Specimen | + + | | + + + +---------+ + + | Performing | Address | City/State/Zipcode | Phone Number | | Organization | | | | + +---------+ + + | EXTERNAL LAB | | | | + +---------+ + + Culture, Body Fluid, Sterile, Smear, with Anaerobes (07/21/2018 2:00 PM PDT) + + | Specimen | + + | Body fluid sample | | (specimen) | + + + + + | Narrative | Performed At | + + + | Specimen Description THORACIC FLUID GRAM STAIN | EXTERNAL LAB | | NO CELLS OR ORGANISMS SEEN | | | CULTURE NO GROWTH 4 DAYS | | + + + + +---------+ + + | Performing | Address | City/State/Zipcode | Phone Number | | Organization | | | | + +---------+ + + | EXTERNAL LAB | | | | + +---------+ + + External Lab: Protein, Total (07/21/2018 2:00 PM PDT) + + | Specimen | + + | Body fluid sample | | (specimen) | + + + + + | Narrative | Performed At | + + + | FLUID TOTAL PROTEIN 4.2 This is | EXTERNAL LAB | | not a pre billing clinician validated sample type for this method. No reference | | | ranges have been established. Testing performed at [facility], [address] | | | [place] [address] FLUID TP SOURCE | | | THORACENTESIS Testing performed at [facility];[address] | [address];[place] [address] | | + + + + +---------+ + + | Performing | Address | City/State/Zipcode | Phone Number | | Organization | | | | + +---------+ + + | EXTERNAL LAB | | | | + +---------+ + + Lactate Dehydrogenase, Body Fluid (07/21/2018 2:00 PM PDT) + + | Specimen | + + | Body fluid sample | | (specimen) | + + + + + | Narrative | Performed At | + + + | FLUID LDH 148 This | EXTERNAL LAB | | is not a pre billing clinician validated sample type for this method. No | | | reference ranges have been established. Testing performed at [facility], | | | [address] [facility] [place] [address] | | + + + + +---------+ + + | Performing | Address | City/State/Zipcode | Phone Number | | Organization | | | | + +---------+ + + | EXTERNAL LAB | | | | + +---------+ + + PH, Body Fluid (07/21/2018 2:00 PM PDT) + + | Specimen | + + | Body fluid sample | | (specimen) | + + + + + | Narrative | Performed At | + + + | FLUID PH 7.48 | EXTERNAL LAB | | Testing performed at [facility];[address] [place] [address];[place] [address] | | + + + + +---------+ + + | Performing | Address | City/State/Zipcode | Phone Number | | Organization | | | | + +---------+ + + | EXTERNAL LAB | | | | + +---------+ + + Lactate Dehydrogenase (07/21/2018 12:48 PM PDT) + + + + + + | Component | Value | Ref Range | Performed | Pathologist | | | | | At | Signature | + + + + + + | LDH TOTAL | 351 (H)Comment: Testing | 120 - 246 U/L | EXTERNAL | | | | performed at [facility];[address] | | LAB | | | | [address];[place] | | | | | | [address] | | | | + + + + + + + + | Specimen | + + | Blood specimen | | (specimen) | + + + +---------+ + + | Performing | Address | City/State/Zipcode | Phone Number | | Organization | | | | + +---------+ + + | EXTERNAL LAB | | | | + +---------+ + + Hepatic Function Panel (07/21/2018 12:48 PM PDT) + + + + + + | Component | Value | Ref Range | Performed | Pathologist | | | | | At | Signature | + + + + + + | Protein, | 7.2 | 6.3 - 8.2 g/dL | EXTERNAL | | | Total | | | LAB | | + + + + + + | Albumin | 4.2 | 3.6 - 5.0 g/dL | EXTERNAL | | | | | | LAB | | + + + + + + | Bilirubin | 1.1 | 0.1 - 1.5 mg/dL | EXTERNAL | | | Total | | | LAB | | + + + + + + | Bilirubin | 0.7 (H) | 0.0 - 0.3 mg/dL | EXTERNAL | | | Direct | | | LAB | | + + + + + + | ALP, | 154 (H) | 35 - 115 U/L | EXTERNAL | | | External | | | LAB | | + + + + + + | AST | 159 (H) | 10 - 45 U/L | EXTERNAL | | | | | | LAB | | + + + + + + | ALT | 181 (H)Comment: Testing | 10 - 65 U/L | EXTERNAL | | | | performed at [facility];[address] | | LAB | | | | [address];[place], [place] | | | | | | [address] | | | | + + + [...] +---------+ + + XR Chest 1 Vw (07/21/2018 11:03 AM PDT) + + | Specimen | + + | | + + + + + | Impressions | Performed At | + + + | 1. No evidence of pneumothorax post thoracentesis. 2. Mild residual | | | atelectasis seen along the minor fissure and perihilar region of the | | | right lung. Signed by: Abbi Espinoza Edward Sign Date/Time: | | | 07/21/2018 11:25 AM | | + + + + + + | Narrative | Performed At | + + + | CHEST ONE VIEW CLINICAL INFORMATION: Post thoracentesis , removed | | | 1500 mL. COMPARISON: US CHEST (07/20/2018); CT CHEST WO CONTRAST | | | (07/19/2018); FINDINGS: Overlying EKG leads are noted. There is | | | mild atelectasis seen along the major fissure in the right chest and | | | in the right perihilar region. No pneumothorax is seen. The left | | | lung remains well aerated. Mild pulmonary vascular congestion is | | | noted. The heart is mildly enlarged. | | + + + + + | Procedure Note | + + | Sonido Steele - 10/16/2018 9:43 PM PDT CHEST ONE VIEW | | CLINICAL INFORMATION: | | Post thoracentesis , removed 1500 mL. | | COMPARISON: | | US CHEST (07/20/2018); CT CHEST WO CONTRAST (07/19/2018); | | FINDINGS: | | Overlying EKG leads are noted. There is mild atelectasis seen along | | the major fissure in the right chest and in the right perihilar region. | | No pneumothorax is seen. The left lung remains well aerated. Mild | | pulmonary vascular congestion is noted. The heart is mildly enlarged. | | IMPRESSION: | | 1. No evidence of pneumothorax post thoracentesis. | | 2. Mild residual atelectasis seen along the minor fissure and perihilar | | region of the right lung. | | Signed by: Abbi Espinoza Edward | | Sign Date/Time: 07/21/2018 11:25 AM | + + US Guided Thoracentesis wo Chest Tube (07/21/2018 10:38 AM PDT) + + | Specimen | + + | | + + + + + | Narrative | Performed At | + + + | PROCEDURE Ultrasound-guided diagnostic and therapeutic right | | | thoracentesis. INDICATIONS Shortness of breath, dyspnea on | | | exertion. Patient with history of congestive heart failure and | | | end-stage renal disease. Recurrent pleural effusion. * * | | | ALLERGIES* * 1. FENTANYL 2. IODINATED DIAGNOSTIC AGENTS 3. | | | MORPHINE 4. RITALIN 5. TAPE PREPROCEDURE LABORATORY DATA | | | Labs performed: CBC indicates platelet count of 153,000, INR of 1.6, | | | and PTT of 28. DIAGNOSTIC IMAGING DATA Limited ultrasound of | | | chest performed on July 20, 2018, indicates large right pleural | | | effusion. REFERRING PHYSICIAN Sotero Reinoso M.D. | | | DESCRIPTION OF PROCEDURE I met this patient in Room 4464. The patient | | | was awake, alert, and oriented x 3. We had a discussion about the | | | procedure, the risks involved and the alternatives, the patient | | | verbalized understanding of this, and their desire was to proceed with | | | the procedure. Therefore, a written informed consent was obtained. | | | A pre-procedural pause time-out was performed identifying the | | | patient, the site, the orders, and all members of the team were in | | | agreement. The patient was sitting at the bedside with arms on the | | | [id number]-clg-duh table. Ultrasound was utilized to tk an area in the | | | right posterior ribcage with the largest pocket of pleural fluid | | | underneath. After the area was marked a sterile prep was performed | | | using chlorhexidine circular scrubs. Sterile drapes were malika and | | | sterile technique was maintained throughout the procedure. | | | Lidocaine 1% was infused through the skin tissues at the insertion | | | point, with good effect. A small bradley was made with a #11 blade | | | through the skin tissues only. A large-bore thoracentesis needle was | | | guided through the skin tissues using aspiration at the end of the | | | needle with the syringe. When into the pleural fluid, there was an | | | immediate return of hazy, dai fluid into the syringe. At this | | | point the needle was removed and the catheter was advanced. A 3-way | | | valve was attached to syringe bag system and the total amount of | | | pleural fluid removed was 1500 mL. When 1500 mL was achieved, the | | | procedure was terminated. The catheter was removed and Xeroform | | | gauze and Tegaderm dressing was placed over the site with pressure | | | held for 3 minutes with no further drainage noted. A | | | postprocedural expiratory 1-view chest x-ray was ordered and reviewed | | | by radiologist Dr. Espinoza, and revealed no pneumothorax. The | | | fluid was sent to the lab for indicated testing. The patient | | | tolerated the procedure well and no post-procedural complications were | | | encountered. IMPRESSION 1. Successful ultrasound-guided | | | diagnostic and therapeutic right thoracentesis with removal of 1500 mL | | | of hazy, dai pleural fluid. 2. There were no immediate | | | postprocedural complications and no postprocedure pneumothorax. | | | This report has been prepared with a voice recognition system. The | | | possibility of "sound alike" electrical manufacturing engineer errors, addition and/or | | | deletions may occur. If there is any question about this report | | | please contact the author of the report. | | + + + + + | Procedure Note | + + | Sonido Steele Conversion - 10/16/2018 9:43 PM PDT PROCEDUREUltrasound-guided diagnostic | | and therapeutic right thoracentesis. INDICATIONSShortness of breath, dyspnea on | | exertion. Patient with history of congestive heart failure and end-stage renal disease. | | Recurrent pleural effusion. * * ALLERGIES* *1. FENTANYL2. IODINATED DIAGNOSTIC | | AGENTS3. MORPHINE4. RITALIN5. TAPE PREPROCEDURE LABORATORY DATALabs performed: CBC | | indicates platelet count of 153,000, INR of 1.6, and PTT of 28. DIAGNOSTIC IMAGING | | DATALimited ultrasound of chest performed on July 20, 2018, indicates large right pleural | | effusion. REFERRING PHYSICIANSotero Reinoso M.D. DESCRIPTION OF PROCEDUREI met this | | patient in Room 4464. The patient was awake, alert, and oriented x 3. We had a | | discussion about the procedure, the risks involved and the alternatives, the patient | | verbalized understanding of this, and their desire was to proceed with the procedure. | | Therefore, a written informed consent was obtained. A pre-procedural pause time-out was | | performed identifying the patient, the site, the orders, and all members of the team | | were in agreement. The patient was sitting at the bedside with arms on the [id number]-uyz-mmh | | table. Ultrasound was utilized to tk an area in the right posterior ribcage with the | | largest pocket of pleural fluid underneath. After the area was marked a sterile prep was | | performed using chlorhexidine circular scrubs. Sterile drapes were malika and sterile | | technique was maintained throughout the procedure. Lidocaine 1% was infused through the | | skin tissues at the insertion point, with good effect. A small bradley was made with a #11 | | blade through the skin tissues only. A large-bore thoracentesis needle was guided | | through the skin tissues using aspiration at the end of the needle with the syringe. | | When into the pleural fluid, there was an immediate return of hazy, dai fluid into the | | syringe. At this point the needle was removed and the catheter was advanced. A 3-way | | valve was attached to syringe bag system and the total amount of pleural fluid removed | | was 1500 mL. When 1500 mL was achieved, the procedure was terminated. The catheter was | | removed and Xeroform gauze and Tegaderm dressing was placed over the site with pressure | | held for 3 minutes with no further drainage noted. A postprocedural expiratory 1-view | | chest x-ray was ordered and reviewed by radiologist Dr. Espinoza, and revealed no | | pneumothorax. The fluid was sent to the lab for indicated testing. The patient tolerated | | the procedure well and no post-procedural complications were encountered. IMPRESSION1. | | Successful ultrasound-guided diagnostic and therapeutic right thoracentesis with removal | | of 1500 mL of hazy, dai pleural fluid.2. There were no immediate postprocedural | | complications and no postprocedure pneumothorax. This report has been prepared with a | | voice recognition system. The possibility of "sound alike" electrical manufacturing engineer errors, | | addition and/or deletions may occur. If there is any question about this report please | | contact the author of the report. Electronically signed by KRISHNA Nice on | | 07/21/2018 11:53 AM | | | |The fluid was sent to the lab for indicated testing. | | | |The patient tolerated the procedure well and no post-procedural complications were encounte red. | | | |IMPRESSION | |1. Successful ultrasound-guided diagnostic and therapeutic right thoracentesis with removal of 1500 mL of hazy, dai pleural fluid. | |2. There were no immediate postprocedural complications and no postprocedure pneumothorax. | | | | | |This report has been prepared with a voice recognition system. The possibility of "sound a like" electrical manufacturing engineer errors, addition and/or deletions may occur. If there is any question a bout this report please contact the author of the report. | | | | | + + External Lab: CBC 07/21/2018 6:00 AM PDT) + + +---- + + + | Component | Value | Ref Range | Performed | Pathologist | | | | | At | Signature | + + +---- + + + | WBC | 4.91 | 3.8 0 - 11.00 | EXTERNAL | | | | | K/u L | LAB | | + + +---- + + + | RED CELL | 3.00 (L) | 3.7 0 - 5.10 | EXTERNAL | | | COUNT | | M/u L | LAB | | + + +---- + + + | Hgb | 11.0 (L) | 11. 3 - 15.5 | EXTERNAL | | | | | g/d L | LAB | | + + +---- + + + | Hematocrit, | 33.2 (L) | 34. 0 - 46.0 % | EXTERNAL | | | POC | | | LAB | | + + +---- + + + | MCV | 110.7 (H) | 80. 0 - 100.0 fl | EXTERNAL | | | | | | LAB | | + + +---- + + + | MCH | 36.6 (H) | 27. 0 - 34.0 pg | EXTERNAL | | | | | | LAB | | + + +---- + + + | MCHC | 33.0 | 32. 0 - 35.5 | EXTERNAL | | | | | g/d L | LAB | | + + +---- + + + | RDW-CV | 62.6 (H) | 37 - 53 fl | EXTERNAL | | | | | | LAB | | + + +---- + + + | Platelet | 153 | 150 - 400 K/uL | EXTERNAL | | | Count | | | LAB | | | Plasma | | | | | + + +---- + + + | MPV | 10.4 | fl | EXTERNAL | | | | | | LAB | | + + +---- + + + | Differentia | AUTOMATED | | EXTERNAL | | | l Type | | | LAB | | + + +---- + + + | % Segmented | 55.26 | % | EXTERNAL | | | | | | LAB | | | Neutrophils | | | | | + + +---- + + + | % | 25.63 | % | EXTERNAL | | | Lymphocytes | | | LAB | | + + +---- + + + | % Monocytes | 9.69 | % | EXTERNAL | | | | | | LAB | | + + +---- + + + | % | 8.28 | % | EXTERNAL | | | Eosinophils | | | LAB | | + + +---- + + + | % Basophils | 1.14 | % | EXTERNAL | | | | | | LAB | | + + +---- + + + | Absolute | 2.72 | 1.9 0 - 7.40 | EXTERNAL | | | Segmented | | K/u L | LAB | | | Neutrophils | | | | | + + +---- + + + | Absolute | 1.26 | 1.0 0 - 3.90 | EXTERNAL | | | Lymphocytes | | K/u L | LAB | | + + +---- + + + | Absolute | 0.48 | 0.0 0 - 0.80 | EXTERNAL | | | Monocytes | | K/u L | LAB | | + + +---- + + + | Absolute | 0.41 | 0.0 0 - 0.50 | EXTERNAL | | | Eosinophils | | K/u L | LAB | | + + +---- + + + | Absolute | 0.06 | 0.0 0 - 0.10 | EXTERNAL | | | Basophils | | K/u L | LAB | | + + +---- + + + | RBC | 2+Comment: | | EXTERNAL | | | Morphology | MACRO1+ANISONORMAL PLT | | LAB | | | | MORPHTesting performed | | | | | | at [facility], [address] | | | | | [address], | | | | | | [place] [address] | | | | | |Testing performed at [facility], [address], [place] [address] | | | | | | | [...] + +---------+ + + Basic Metabolic Panel (07/21/2018 6:00 AM PDT) + + + + + + | Component | Value | Ref Range | Performed | Pathologist | | | | | At | Signature | + + + + + + | Na | 136 | 135 - 145 | EXTERNAL | | | | | mmol/L | LAB | | + + + + + + | K | 4.1 | 3.5 - 4.9 | EXTERNAL | | | | | mmol/L | LAB | | + + + + + + | Cl | 98 (L) | 99 - 109 mmol/L | EXTERNAL | | | | | | LAB | | + + + + + + | CO2 | 30 | 23 - 32 mmol/L | EXTERNAL | | | | | | LAB | | + + + + + + | Anion Gap | 12 | 5 - 20 mmol/L | EXTERNAL | | | | | | LAB | | + + + + + + | Glucose, | 87 | 65 - 99 mg/dL | EXTERNAL | | | Fasting | | | LAB | | + + + + + + | BUN | 26 (H) | 8 - 25 mg/dL | EXTERNAL | | | | | | LAB | | + + + + + + | Creatinine | 4.6 (H) | 0.50 - 1.00 | EXTERNAL | | | | | mg/dL | LAB | | + + + + + + | BUN/Creatin | 6 | | EXTERNAL | | | ine Ratio | | | LAB | | + + + + + + | Calcium | 9.7 | 8.5 - 10.5 | EXTERNAL | | | | | mg/dL | LAB | | + + + + + + | Estimated | 12 (L)Comment: GFR <60: | mL/min/1.73m2 | EXTERNAL [...] | | | | | performed at [facility], [address] | | | | | [address], | | | | | | [place] [address] | | | | + + + + + + + + | Specimen | + + | Blood specimen | | (specimen) | + + + +---------+ + + | Performing | Address | City/State/Zipcode | Phone Number | | Organization | | | | + +---------+ + + | EXTERNAL LAB | | | | + +---------+ + + Potassium (07/20/2018 4:25 PM PDT) + + + + + + | Component | Value | Ref Range | Performed | Pathologist | | | | | At | Signature | + + + + + + | K | 3.8Comment: Testing | 3.5 - 4.9 | EXTERNAL | | | | performed at [facility];[address] | mmol/L | LAB | | | | [address];[place], [place] | | | | | | [address] | | | | + + + + + + + + | Specimen | + + | Blood specimen | | (specimen) | + + + +---------+ + + | Performing | Address | City/State/Zipcode | Phone Number | | Organization | | | | + +---------+ + + | EXTERNAL LAB | | | | + +---------+ + + US Chest (07/20/2018 9:05 AM PDT) + + | Specimen | + + | | + + + + + | Impressions | Performed At | + + + | No left pleural fluid is seen. Large right pleural effusion was | | | not scanned. This looks easily drainable by ultrasound guidance. | | | Signed by: Eliza Bustos, Quang Sign Date/Time: 07/20/2018 11:43 AM | | + + + + + + | Narrative | Performed At | + + + | ULTRASOUND CHEST AND MEDIASTINUM CLINICAL INFORMATION: Left | | | Pleural effusion. End stage renal failure. COMPARISON: CT CHEST WO | | | CONTRAST (07/19/2018); X CHEST (07/18/2018); X CHEST (06/20/2018); | | | PROCEDURE: Ultrasound of the chest. FINDINGS: No left pleural fluid | | | is seen. The large right pleural effusion noted on CT 07/19/2018 | | | looks easily drainable on CT images. | | + + + + + | Procedure Note | + + | Cedric, Rad Conversion - 10/16/2018 9:43 PM PDT ULTRASOUND CHEST AND MEDIASTINUM | | CLINICAL INFORMATION: | | Left Pleural effusion. End stage renal failure. | | COMPARISON: | | CT CHEST WO CONTRAST (07/19/2018); X CHEST (07/18/2018); X CHEST | | (06/20/2018); | | PROCEDURE: | | Ultrasound of the chest. | | FINDINGS: | | No left pleural fluid is seen. The large right pleural effusion noted | | on CT 07/19/2018 looks easily drainable on CT images. | | IMPRESSION: | | No left pleural fluid is seen. Large right pleural effusion was not | | scanned. This looks easily drainable by ultrasound guidance. | | Signed by: Eliza Bustos Shawn | | Sign Date/Time: 07/20/2018 11:43 AM | + + PTT (07/20/2018 6:25 AM PDT) + + + + + + | Component | Value | Ref Range | Performed | Pathologist | | | | | At | Signature | + + + + + + | aPTT, | 28Comment: Testing | 23 - 32 seconds | EXTERNAL | | | Patient | performed at [facility];[address] | | LAB | | | | [address];[place], [place] | | | | | | [address] | | | | + + + + + + + + | Specimen | + + | | + + + +---------+ + + | Performing | Address | City/State/Zipcode | Phone Number | | Organization | | | | + +---------+ + + | EXTERNAL LAB | | | | + +---------+ + + Protime INR (07/20/2018 6:25 AM PDT) + + + + + + | Component | Value | Ref Range | Performed | Pathologist | | | | | At | Signature | + + + + + + | INR | 1.6Comment: REFERENCE | | EXTERNAL | | | [...] | | | | performed at [facility];[address] | | | | | | [address];[place], [place] | | | | | | [address] | | | | + + + + + + + + | Specimen | + + | | + + + +---------+ + + | Performing | Address | City/State/Zipcode | Phone Number | | Organization | | | | + +---------+ + + | EXTERNAL LAB | | | | + +---------+ + + External Lab: [facility] (07/20/2018 6:25 AM PDT) + + + + + + | Component | Value | Ref Range | Performed | Pathologist | | | | | At | Signature | + + + + + + | WBC | 6.36 | 3.80 - 11.00 | EXTERNAL | | | | | K/uL | LAB | | + + + + + + | RED CELL | 3.57 (L) | 3.70 - 5.10 | EXTERNAL | | | COUNT | | M/uL | LAB | | + + + + + + | Hgb | 12.8 | 11.3 - 15.5 | EXTERNAL | | | | | g/dL | LAB | | + + + + + + | Hematocrit, | 39.2 | 34.0 - 46.0 % | EXTERNAL | | | POC | | | LAB | | + + + + + + | MCV | 109.7 (H) | 80.0 - 100.0 fl | EXTERNAL | | | | | | LAB | | + + + + + + | MCH | 35.7 (H) | 27.0 - 34.0 pg | EXTERNAL | | | | | | LAB | | + + + + + + | MCHC | 32.6 | 32.0 - 35.5 | EXTERNAL | | | | | g/dL | LAB | | + + + + + + | RDW-CV | 63.4 (H) | 37 - 53 fl | EXTERNAL | | | | | | LAB | | + + + + + + | Platelet | 157 | 150 - 400 K/uL | EXTERNAL | | | Count | | | LAB | | | Plasma | | | | | + + + + + + | MPV | 9.6 | fl | EXTERNAL | | | | | | LAB | | + + + + + + | Differentia | AUTOMATED | | EXTERNAL | | | l Type | | | LAB | | + + + + + + | % Segmented | 77.19 | % | EXTERNAL | | | | | | LAB | | | Neutrophils | | | | | + + + + + + | % | 14.20 | % | EXTERNAL | | | Lymphocytes | | | LAB | | + + + + + + | % Monocytes | 6.31 | % | EXTERNAL | | | | | | LAB | | + + + + + + | % | 1.73 | % | EXTERNAL | | | Eosinophils | | | LAB | | + + + + + + | % Basophils | 0.57 | % | EXTERNAL | | | | | | LAB | | + + + + + + | Absolute | 4.91 | 1.90 - 7.40 | EXTERNAL | | | Segmented | | K/uL | LAB | | | Neutrophils | | | | | + + + + + + | Absolute | 0.90 (L) | 1.00 - 3.90 | EXTERNAL | | | Lymphocytes | | K/uL | LAB | | + + + + + + | Absolute | 0.40 | 0.00 - 0.80 | EXTERNAL | | | Monocytes | | K/uL | LAB | | + + + + + + | Absolute | 0.11 | 0.00 - 0.50 | EXTERNAL | | | Eosinophils | | K/uL | LAB | | + + + + + + | Absolute | 0.04 | 0.00 - 0.10 | EXTERNAL | | | Basophils | | K/uL | LAB | | + + + + + + | RBC | 1+ | | EXTERNAL | | | Morphology | Comment: | | LAB | | | | MACRO | | | | | | 1+ | | | | | | ANISO | | | | | | NORMAL PLT MORPH | | | | | | | | | | + + + + + + | Platelet | ADEQUATEComment: Testing | | EXTERNAL | | | Estimate | performed at [facility] | | LAB | | | | [address];[place], [place] | | | | | | [address] | | | | + + + + + + + + | Specimen | + + | | + + + +---------+ + + | Performing | Address | City/State/Zipcode | Phone Number | | Organization | | | | + +---------+ + + | EXTERNAL LAB | | | | + +---------+ + + Renal Function Panel (07/20/2018 6:25 AM PDT) + + + + + + | Component | Value | Ref Range | Performed | Pathologist | | | | | At | Signature | + + + + + + | Na | 138 | 135 - 145 | EXTERNAL | | | | | mmol/L | LAB | | + + + + + + | K | 6.2 (H) | 3.5 - 4.9 | EXTERNAL | | | | | mmol/L | LAB | | + + + + + + | Cl | 98 (L) | 99 - 109 mmol/L | EXTERNAL | | | | | | LAB | | + + + + + + | CO2 | 25 | 23 - 32 mmol/L | EXTERNAL | | | | | | LAB | | + + + + + + | Anion Gap | 21 (H) | 5 - 20 mmol/L | EXTERNAL | | | | | | LAB | | + + + + + + | Glucose, | 50 (L) | 65 - 99 mg/dL | EXTERNAL | | | Fasting | | | LAB | | + + + + + + | BUN | 32 (H)Comment: ICTERIC | 8 - 25 mg/dL | EXTERNAL | | | | SPECIMEN | | LAB | | + + + + + + | Creatinine | 5.65 (H)Comment: ICTERIC | 0.50 - 1.00 | EXTERNAL | | | | SPECIMEN | mg/dL | LAB | | + + + + + + | Calcium | 9.7 | 8.5 - 10.5 | EXTERNAL | | | | | mg/dL | LAB | | + + + + + + | Albumin | 4.7 | 3.6 - 5.0 g/dL | EXTERNAL | | | | | | LAB | | + + + + + + | PHOSPHORUS | 8.0 (H)Comment: ICTERIC | 2.3 - 4.8 mg/dL | EXTERNAL | | | | SPECIMEN | | LAB | | + + [...] | | | | performed at [facility] | | | | | | [facility];[place], [place] | | | | | | [address] | | | | + + + + + + + + | Specimen | + + | Blood specimen | | (specimen) | + + + +---------+ + + | Performing | Address | City/State/Zipcode | Phone Number | | Organization | | | | + +---------+ + + | EXTERNAL LAB | | | | + +---------+ + + Troponin I (07/19/2018 11:48 AM PDT) + + + + + + | Component | Value | Ref Range | Performed | Pathologist | | | | | At | Signature | + + + + + + | Troponin I, | 0.077 (H)Comment: 0.04 | 0.00 - 0.04 | EXTERNAL | | | Qual | ng/mL or less | ng/mL | LAB | | | | Negative, repeat | | | | | | testing in four to six | | | | | | hour if clinically | | | | | | indicted0.05 to 0.77 | | | | | | ng/mL | | | | | | Suspicious for | | | | | | myocardial injury. | | | | | | Serial measurements may | | | | | | be necessary to confirm | | | | | | or exclude the diagnosis | | | | | | of acute coronary | | | | | | syndrome. Repeat testing | | | | | | in four to six hours if | | | | | | indicated.0.78 or | | | | | | greater ng/mL | | | | | | Consistent with | | | | | | myocardial injury. | | | | | | Clinical and laboratory | | | | | | correlation recommended. | | | | | | Testing performed at | | | | | | [facility];[address] [place] [address] | | | | | | [facility];[place] [address] | | | | + + + + + + + + | Specimen | + + | Blood specimen | | (specimen) | + + + +---------+ + + | Performing | Address | City/State/Zipcode | Phone Number | | Organization | | | | + +---------+ + + | EXTERNAL LAB | | | | + +---------+ + + Culture, Blood, 2nd Specimen (07/19/2018 9:25 AM PDT) + + | Specimen | + + | Blood specimen | | (specimen) | + + + + + | Narrative | Performed At | + + + | Specimen Description BLOOD, PERIPHERAL DRAW | EXTERNAL LAB | | SPECIAL REQUESTS RT FOREARM CULTURE | | | NO GROWTH 6 DAYS | | + + + + +---------+ + + | Performing | Address | City/State/Zipcode | Phone Number | | Organization | | | | + +---------+ + + | EXTERNAL LAB | | | | + +---------+ + + Culture, Blood (07/19/2018 8:53 AM PDT) + + | Specimen | + + | Blood specimen | | (specimen) | + + + + + | Narrative | Performed At | + + + | Specimen Description BLOOD, PERIPHERAL DRAW | EXTERNAL LAB | | SPECIAL REQUESTS RIGHT AC CULTURE | | | NO GROWTH 6 DAYS | | + + + + +---------+ + + | Performing | Address | City/State/Zipcode | Phone Number | | Organization | | | | + +---------+ + + | EXTERNAL LAB | | | | + +---------+ + + CT Chest wo Contrast (07/19/2018 8:51 AM PDT) + + | Specimen | + + | | + + + + | Addenda | + + | Addendum by Brian Lenz MD on 07/20/2018 9:34 AM ADDENDUM BEGINS Clarification | | of the first line of the impression: Large RIGHT pleural effusion, unchanged. | | Associated atelectasis noted involving the right lung. Signed by: Eliza Lenz Amit | | Sign Date/Time: 07/20/2018 9:30 AM ADDENDUM ENDS | + + + + + | Impressions | Performed At | + + + | Large left pleural effusion, unchanged. Associated atelectasis | | | noted along the right lung. Mosaic attenuation of the left lung | | | parenchyma, uncertain etiology. Again, differential considerations | | | for this finding are broad, to include parenchymal, vascular or small | | | airway obstructive process. Partially visualized at least small | | | amount of ascites. Borderline cardiomegaly. Enlarged mediastinal | | | lymph nodes, unchanged. Signed by: Eliza Lenz Amit Sign Date/Time: | | | 07/19/2018 9:13 AM | | + + + + + + | Narrative | Performed At | + + + | CT CHEST WITHOUT CONTRAST CLINICAL INFORMATION: Pneumonia. | | | Hypoxia, Febrile illness, Recurrent pleural effusion on right, | | | History of end stage renal disease COMPARISON: CT CHEST WO CONTRAST | | | (05/26/2018); PROCEDURE: Axial images through the chest. Multiplanar | | | reconstructions. At least one of the following CT dose optimization | | | techniques were used: Automated exposure control; Adjustment of mA | | | and/or kV according to patient size; Use of iterative reconstruction | | | technique. FINDINGS: Lungs, Pleura and Airways: Large right pleural | | | effusion. Associated volume loss and airspace disease involving the | | | right mid to lower lung, likely atelectasis. Mosaic attenuation of | | | the lung parenchyma identified, most prominent in the left lower | | | lung. Resolution of the left pleural effusion. Mediastinum: | | | Borderline cardiomegaly. No pericardial effusion seen. Aorta does | | | not appear aneurysmal. Lymph Nodes: Unchanged multiple enlarged | | | mediastinal lymph nodes, for example Prevascular lymph node on | | | series 3, image 24 measuring 1.6 cm x 1.1 cm. Upper Abdomen: At least | | | small amount of ascites seen, partially visualized. BODY WALL Soft | | | Tissues: Mild anasarca. Bones: No acute or destructive osseous | | | process seen | | + + + + + | Procedure Note | + + | Cedric, Rad Conversion - 10/16/2018 9:[address] CHEST WITHOUT CONTRAST | | CLINICAL INFORMATION: | | Pneumonia. Hypoxia, Febrile illness, Recurrent pleural effusion on | | right, History of end stage renal disease | | COMPARISON: | | CT CHEST WO CONTRAST (05/26/2018); | | PROCEDURE: | | Axial images through the chest. Multiplanar reconstructions. | | At least one of the following CT dose optimization techniques were | | used: Automated exposure control; Adjustment of mA and/or kV according | | to patient size; Use of iterative reconstruction technique. | | FINDINGS: | | Lungs, Pleura and Airways: | | Large right pleural effusion. | | Associated volume loss and airspace disease involving the right mid to | | lower lung, likely atelectasis. | | Mosaic attenuation of the lung parenchyma identified, most prominent in | | the left lower lung. | | Resolution of the left pleural effusion. | | Mediastinum: Borderline cardiomegaly. No pericardial effusion seen. | | Aorta does not appear aneurysmal. | | Lymph Nodes: Unchanged multiple enlarged mediastinal lymph nodes, for | | example | | Prevascular lymph node on series 3, image 24 measuring 1.6 cm x 1.1 cm. | | Upper Abdomen: At least small amount of ascites seen, partially | | visualized. | | BODY WALL | | Soft Tissues: Mild anasarca. | | Bones: No acute or destructive osseous process seen | | IMPRESSION: | | Large left pleural effusion, unchanged. Associated atelectasis noted | | along the right lung. | | Mosaic attenuation of the left lung parenchyma, uncertain etiology. | | Again, differential considerations for this finding are broad, to | | include parenchymal, vascular or small airway obstructive process. | | Partially visualized at least small amount of ascites. | | Borderline cardiomegaly. | | Enlarged mediastinal lymph nodes, unchanged. | | Signed by: Eliza Lenz Amit | | Sign Date/Time: 07/19/2018 9:13 AM | + + Lactic Acid (07/19/2018 6:10 AM PDT) + + + + + + | Component | Value | Ref Range | Performed | Pathologist | | | | | At | Signature | + + + + + + | Lactate | 0.8Comment: INSTRUMENT | 0.4 - 2.0 | EXTERNAL | | | | ERROR. NOTIFIED 4RP AT | mmol/L | LAB | | | | 1230 BY TMBTesting | | | | | | performed at [facility];[address] | | | | | | [facility];[place], [place] | | | | | | [id number] ON 07/19 | | | | | | AT 1233: PREVIOUSLY | | | | | | REPORTED <0.1 | | | | + + + + + + + + | Specimen | + + | | + + + +---------+ + + | Performing | Address | City/State/Zipcode | Phone Number | | Organization | | | | + +---------+ + + | EXTERNAL LAB | | | | + +---------+ + + Troponin I (07/19/2018 6:10 AM PDT) + + + + + + | Component | Value | Ref Range | Performed | Pathologist | | | | | At | Signature | + + + + + + | Troponin I, | 0.102 (H)Comment: 0.04 | 0.00 - 0.04 | EXTERNAL | | | Qual | ng/mL or less | ng/mL | LAB | | | | Negative, repeat | | | | | | testing in four to six | | | | | | hour if clinically | | | | | | indicted0.05 to 0.77 | | | | | | ng/mL | | | | | | Suspicious for | | | | | | myocardial injury. | | | | | | Serial measurements may | | | | | | be necessary to confirm | | | | | | or exclude the diagnosis | | | | | | of acute coronary | | | | | | syndrome. Repeat testing | | | | | | in four to six hours if | | | | | | indicated.0.78 or | | | | | | greater ng/mL | | | | | | Consistent with | | | | | | myocardial injury. | | | | | | Clinical and laboratory | | | | | | correlation recommended. | | | | | | Testing performed at | | | | | | [facility];[address] [place] [address] | | | | | | [address]vd;[place] [address] | | | | + + + [...] + +---------+ + + External Lab: CBC (07/19/2018 6:10 AM PDT) + + +---- + + + | Component | Value | Ref Range | Performed | Pathologist | | | | | At | Signature | + + +---- + + + | WBC | 4.03 | 3.8 0 - 11.00 | EXTERNAL | | | | | K/u L | LAB | | + + +---- + + + | RED CELL | 3.20 (L) | 3.7 0 - 5.10 | EXTERNAL | | | COUNT | | M/u L | LAB | | + + +---- + + + | Hgb | 11.7 | 11. 3 - 15.5 | EXTERNAL | | | | | g/d L | LAB | | + + +---- + + + | Hematocrit, | 35.4 | 34. 0 - 46.0 % | EXTERNAL | | | POC | | | LAB | | + + +---- + + + | MCV | 110.5 (H) | 80. 0 - 100.0 fl | EXTERNAL | | | | | | LAB | | + + +---- + + + | MCH | 36.6 (H) | 27. 0 - 34.0 pg | EXTERNAL | | | | | | LAB | | + + +---- + + + | MCHC | 33.1 | 32. 0 - 35.5 | EXTERNAL | | | | | g/d L | LAB | | + + +---- + + + | RDW-CV | 64.3 (H) | 37 - 53 fl | EXTERNAL | | | | | | LAB | | + + +---- + + + | Platelet | 140 (L) | 150 - 400 K/uL | EXTERNAL | | | Count | | | LAB | | | Plasma | | | | | + + +---- + + + | MPV | 9.2 | fl | EXTERNAL | | | | | | LAB | | + + +---- + + + | Differentia | AUTOMATED | | EXTERNAL | | | l Type | | | LAB | | + + +---- + + + | % Segmented | 67.10 | % | EXTERNAL | | | | | | LAB | | | Neutrophils | | | | | + + +---- + + + | % | 18.23 | % | EXTERNAL | | | Lymphocytes | | | LAB | | + + +---- + + + | % Monocytes | 9.05 | % | EXTERNAL | | | | | | LAB | | + + +---- + + + | % | 4.82 | % | EXTERNAL | | | Eosinophils | | | LAB | | + + +---- + + + | % Basophils | 0.80 | % | EXTERNAL | | | | | | LAB | | + + +---- + + + | Absolute | 2.70 | 1.9 0 - 7.40 | EXTERNAL | | | Segmented | | K/u L | LAB | | | Neutrophils | | | | | + + +---- + + + | Absolute | 0.74 (L) | 1.0 0 - 3.90 | EXTERNAL | | | Lymphocytes | | K/u L | LAB | | + + +---- + + + | Absolute | 0.37 | 0.0 0 - 0.80 | EXTERNAL | | | Monocytes | | K/u L | LAB | | + + +---- + + + | Absolute | 0.19 | 0.0 0 - 0.50 | EXTERNAL | | | Eosinophils | | K/u L | LAB | | + + +---- + + + | Absolute | 0.03 | 0.0 0 - 0.10 | EXTERNAL | | | Basophils | | K/u L | LAB | | + + +---- + + + | RBC | 1+Comment: | | EXTERNAL | | | Morphology | MACRO2+ANISONORMAL PLT | | LAB | | | | MORPHTesting performed | | | | | | at [facility], [address] | | | | | | [facility], | | | | | | [place] [address] | | | | | |Testing performed at [facility], [address] [facility], [place] [address] | | | | | | | [...] | | + +---------+ + + Phosphorus (07/19/2018 6:10 AM PDT) + + + + + + | Component | Value | Ref Range | Performed | Pathologist | | | | | At | Signature | + + + + + + | PHOSPHORUS | 6.3 (H)Comment: Testing | 2.3 - 4.8 mg/dL | EXTERNAL | | | | performed at [facility], [address] | | LAB | | | | [address] [facility], | | | | | | [place] [address] | | | | + + + + + + + + | Specimen | + + | Blood specimen | | (specimen) | + + + +---------+ + + | Performing | Address | City/State/Zipcode | Phone Number | | Organization | | | | + +---------+ + + | EXTERNAL LAB | | | | + +---------+ + + Magnesium (07/19/2018 6:10 AM PDT) + + + + + + | Component | Value | Ref Range | Performed | Pathologist | | | | | At | Signature | + + + + + + | Magnesium | 2.6 (H)Comment: Testing | 1.7 - 2.4 mg/dL | EXTERNAL | | | | performed at [facility], [address] | | LAB | | | | [address], | | | | | | [place] [address] | | | | + + + + + + + + | Specimen | + + | Blood specimen | | (specimen) | + + + +---------+ + + | Performing | Address | City/State/Zipcode | Phone Number | | Organization | | | | + +---------+ + + | EXTERNAL LAB | | | | + +---------+ + + Comprehensive Metabolic Panel (07/19/2018 6:10 AM PDT) + + + + + + | Component | Value | Ref Range | Performed | Pathologist | | | | | At | Signature | + + + + + + | Na | 136 | 135 - 145 | EXTERNAL | | | | | mmol/L | LAB | | + + + + + + | K | 5.6 (H) | 3.5 - 4.9 | EXTERNAL | | | | | mmol/L | LAB | | + + + + + + | Cl | 98 (L) | 99 - 109 mmol/L | EXTERNAL | | | | | | LAB | | + + + + + + | CO2 | 26 | 23 - 32 mmol/L | EXTERNAL | | | | | | LAB | | + + + + + + | Anion Gap | 18 | 5 - 20 mmol/L | EXTERNAL | | | | | | LAB | | + + + + + + | Glucose, | 87 | 65 - 99 mg/dL | EXTERNAL | | | Fasting | | | LAB | | + + + + + + | BUN | 48 (H) | 8 - 25 mg/dL | EXTERNAL | | | | | | LAB | | + + + + + + | Creatinine | 7.7 (H) | 0.50 - 1.00 | EXTERNAL | | | | | mg/dL | LAB | | + + + + + + | BUN/Creatin | 6 | | EXTERNAL | | | ine Ratio | | | LAB | | + + + + + + | Calcium | 9.8 | 8.5 - 10.5 | EXTERNAL | | | | | mg/dL | LAB | | + + + + + + | Protein, | 7.9 | 6.3 - 8.2 g/dL | EXTERNAL | | | Total | | | LAB | | + + + + + + | Albumin | 3.6 | 3.6 - 5.0 g/dL | EXTERNAL | | | | | | LAB | | + + + + + + | Globulin | 4.3 | 1.3 - 4.9 g/dL | EXTERNAL | | | | | | LAB | | + + + + + + | A/G Ratio | 0.8 (L) | 1.0 - 2.4 | EXTERNAL | | | | | | LAB | | + + + + + + | Bilirubin | 1.3 | 0.1 - 1.5 mg/dL | EXTERNAL | | | Total | | | LAB | | + + + + + + | ALP, | 170 (H) | 35 - 115 U/L | EXTERNAL | | | External | | | LAB | | + + + + + + | AST | 39 | 10 - 45 U/L | EXTERNAL | | | | | | LAB | | + + + + + + | ALT | 54 | 10 - 65 U/L | EXTERNAL | | | | | | LAB | | + + + + + + | Estimated | 7 (L)Comment: GFR <60: | mL/min/1.73m2 | EXTERNAL [...] | | | | | performed at [facility], [address] | | | | | | [facility], | | | | | | [place] [address] | | | | + + + + + + + + | Specimen | + + | Blood specimen | | (specimen) | + + + +---------+ + + | Performing | Address | City/State/Zipcode | Phone Number | | Organization | | | | + +---------+ + + | EXTERNAL LAB | | | | + +---------+ + + MRSA NAAT (07/19/2018 1:34 AM PDT) + + | Specimen | + + | | + + + + + | Narrative | Performed At | + + + | SOURCE NARES(NOSE) MRSA | EXTERNAL LAB | | PCR NEGATIVE Testing | | | performed at [facility];[address] [place] [address];[place] [address] | | + + + + +---------+ + + | Performing | Address | City/State/Zipcode | Phone Number | | Organization | | | | + +---------+ + + | EXTERNAL LAB | | | | + +---------+ + + HISTORICAL MICROBIOLOGY RESULT (07/19/2018 1:32 AM PDT) + + | Specimen | + + | | + + + + + | Narrative | Performed At | + + + | ADENOVIRUS Not Detected | EXTERNAL LAB | | CORONAVIRUS 229E Not Detected CORONAVIRUS | | | HKU1 Not Detected CORONAVIRUS NL63 | | | Not Detected CORONAVIRUS OC43 | | | Not Detected HUMAN METAPNEUMOVIRUS Not | | | Detected HUMAN RHINO/ENTERO Not Detected | | | INFLUENZA A Not Detected INFLUENZA | | | B Not Detected PARAINFLUENZA 1 | | | Not Detected PARAINFLUENZA 2 | | | Not Detected PARAINFLUENZA 3 | | | DETECTED Abnormal PARAINFLUENZA 4 | | | Not Detected RESP SYNCYTIAL VIRUS Not Detected | | | BORDETELLA PERTUSSIS Not Detected CHLAMYDIAE | | | PNEUMONIAE Not Detected MYCOPLASMA PNEUMONIAE | | | Not Detected RESP PANEL INTERP | | | Testing performed by Molecular Methodology Testing performed at | | | [facility], [address] [place] [address] | | + + + + +---------+ + + | Performing | Address | City/State/Zipcode | Phone Number | | Organization | | | | + +---------+ + + | EXTERNAL LAB | | | | + +---------+ + + Lactic Acid (07/19/2018 12:38 AM PDT) + + + + + + | Component | Value | Ref Range | Performed | Pathologist | | | | | At | Signature | + + + + + + | Lactate | 0.6Comment: Testing | 0.4 - 2.0 | EXTERNAL | | | | performed at [facility];[address] | mmol/L | LAB | | | | [address];[place] | | | | | | [address] | | | | + + + + + + + + | Specimen | + + | | + + + +---------+ + + | Performing | Address | City/State/Zipcode | Phone Number | | Organization | | | | + +---------+ + + | EXTERNAL LAB | | | | + +---------+ + + Procalcitonin (07/19/2018 12:35 AM PDT) + + + + + + | Component | Value | Ref Range | Performed | Pathologist | | | | | At | Signature | + + + + + + | PROCALCITON | 0.81 (H)Comment: | ng/mL | EXTERNAL | | | IN | INTERPRETIVE | | LAB | | | | INFORMATION: | | | | | | PROCALCITONIN PCT <= | | | | | | 0.5 ng/mL: Low risk | | | | | | for progression to | | | | | | severe systemic | | | | | | bacterial infection | | | | | | (severe sepsis/septic | | | | | | shock). Does not | | | | | | exclude an infection, | | | | | | because localized | | | | | | infections may be | | | | | | associated with such low | | | | | | levels. If PCT is | | | | | | measured very early | | | | | | after bacterial | | | | | | challenge (usually <6 | | | | | | hours), results may | | | | | | still be low and | | | | | | should re-assess PCT | | | | | | 6-24 hours later. PCT | | | | | | >0.5 and <= 2 ng/mL: | | | | | | Moderate risk for | | | | | | progression to severe | | | | | | systemic infection | | | | | | (severe sepsis/septic | | | | | | shock). Other | | | | | | conditions are known | | | | | | to elevate PCT, patient | | | | | | should be closely | | | | | | monitored both | | | | | | clinically and by | | | | | | re-assessing PCT | | | | | | within 6-24 hours. PCT > | | | | | | 2 ng/mL: High | | | | | | likelihood for | | | | | | progression to severe | | | | | | systemic bacterial | | | | | | infection (severe | | | | | | sepsis/septic shock). | | | | | | PCT >= 10 ng/mL: | | | | | | High likelihood of | | | | | | severe sepsis or septic | | | | | | shock.Testing performed | | | | | | at [facility];[address] [place] [address] | | | | | | [facility];[place] [address] | | | | + + + + + + + + | Specimen | + + | | + + + +---------+ + + | Performing | Address | City/State/Zipcode | Phone Number | | Organization | | | | + +---------+ + + | EXTERNAL LAB | | | | + +---------+ + + Troponin I (07/19/2018 12:35 AM PDT) + + + + + + | Component | Value | Ref Range | Performed | Pathologist | | | | | At | Signature | + + + + + + | Troponin I, | 0.119 (H)Comment: 0.04 | 0.00 - 0.04 | EXTERNAL | | | Qual | ng/mL or less | ng/mL | LAB | | | | Negative, repeat | | | | | | testing in four to six | | | | | | hour if clinically | | | | | | indicted0.05 to 0.77 | | | | | | ng/mL | | | | | | Suspicious for | | | | | | myocardial injury. | | | | | | Serial measurements may | | | | | | be necessary to confirm | | | | | | or exclude the diagnosis | | | | | | of acute coronary | | | | | | syndrome. Repeat testing | | | | | | in four to six hours if | | | | | | indicated.0.78 or | | | | | | greater ng/mL | | | | | | Consistent with | | | | | | myocardial injury. | | | | | | Clinical and laboratory | | | | | | correlation recommended. | | | | | | Testing performed at | | | | | | [facility];[address] [facility] | | | | | | [address];[place] [address] | | | | + + + [...] + +---------+ + + , Serum, Qual (07/19/2018 12:35 AM PDT) + + + + + + | Component | Value | Ref Range | Performed | Pathologist | | | | | At | Signature | + + + + + + | HCG | NEGATIVEComment: Testing | | EXTERNAL | | | QUALITATIVE | performed at [facility] | | LAB | | | | [address];[place] | | | | | | [address] | | | | + + + [...] + | Diagnosis | + + | Febrile illness Fever, unspecified | + + | Recurrent pleural effusion on right Unspecified pleural effusion | + + | Hypoxia Hypoxemia | + + | History of end stage renal disease | + + | ESRD on hemodialysis (HCC) End stage renal disease | + + | Anemia in ESRD (end-stage renal disease) ([facility]) Anemia in chronic kidney disease | + + | Moderate to severe pulmonary hypertension (HCC) Other chronic pulmonary heart | | diseases | + + | Chronic right-sided heart failure (HCC) Congestive heart failure, unspecified | + + | Pleural effusion on right Unspecified pleural effusion | + + documented in this encounter
--- OUTSIDE RECORDS SUMMARY | ~2019-02-17 | XMS | Encounter Summary ---
Demographics + + + | Address | [address] | | | [place] [address] | + + + | Home Phone | | + + + | Preferred Language | Unknown | + + + | Marital Status | Single | + + + | Baptist Affiliation | Unknown | + + + | Race | Unknown | + + + | Ethnic Group | Unknown | + + + Author + + + | Author | [facility] | | | and Josephana | + + + | Organization | [facility] | | | and Josephana [...] Team Providers + +------+ + | Care Sharepoint Developer Name | Role | Phone | + +------+ + PCP | Unavailable | + +------+ + Encounter Details +--------+ + + + + | Date | Type | Department | Care Team | Description | +--------+ + + + + | 10/28/ | Hospital | [facility] | Conversion | ESRD (end stage | | 2015 | Encounter | CENTER CV INTRA OP | Transaction, | renal disease) (HCC) | | | | [address] | Provider Unknown | | | | | [place], [place] | [phone] | | | | | [address] | | | | | | [phone] | Colten Hutchins MD | | | | | | [address] | | | | | | [place], [place] | | | | | | [address] | | | | | | | [...] [address] | | | | | | [address] | | | | | | [place] [address] | | | | | | [phone] | | | | | | | [...] COMPARISON STUDIES: 08/21/2014 | | | PRIMARY WIRE WINDING MACHINE TENDER: Colten Hutchins MD, PhD, VI OPERATIONS: 1. [...] to the area of stenosis. A 4 Russian | | | sheath was placed. Patient [...] | perianastomotic stenoses. COMPARISON STUDIES: 08/21/2014 PRIMARY WIRE WINDING MACHINE TENDER: Colten | | MD Liset, PhD, RPVI [...] to the area of stenosis. A 4 Russian sheath was placed. Patient was | | [...] COMPARISON STUDIES: 08/21/2014 | | | PRIMARY WIRE WINDING MACHINE TENDER: Colten Hutchins MD, PhD, [facility] OPERATIONS: 1. | | | Left upper [...] to the area of stenosis. A 4 Russian | | | sheath was placed. Patient [...] + + | Cedric, Rad Conversion - 10/19/2018 6:38 AM PDT IR DIALYSIS FISTULAGRAM dated 10/28/2014 | | 12:12 PM CLINICAL DATA: Poor functioning left upper extremity AV fistula with prior | | perianastomotic stenoses. COMPARISON STUDIES: 08/21/2014 PRIMARY WIRE WINDING MACHINE TENDER: Colten | | MD Liset, PhD, RPVI [...] to the area of stenosis. A 4 Russian sheath was placed. Patient was | | [...] is noted with clinical improv ement of elizabeth. | | | |No central imaging was [...] | + + | Sonido Steele - 10/19/2018 6:38 AM PDT This Point [...] EXTERNAL | | | | performed at [facility];[address] | K/uL | LAB | | | | [address];[place], [place] | | | | | | [address] | | | | + + + + + + | RED CELL | 3.88Comment: Testing | 3.70 - 5.10 | EXTERNAL | | | COUNT | performed at [facility];[address] | M/uL | LAB | | | | [address];[place] | | | | | | [address] | | | | + + + + + + | Hgb | 14.1Comment: Testing | 11.3 - 15.5 | EXTERNAL | | | | performed at [facility];888 | g/dL | LAB | | | | [address];[place] | | | | | | [address] | | | | + + + + + + | Hematocrit, | 41.4Comment: Testing | 34.0 - 46.0 % | EXTERNAL | | | POC | performed at [facility];[address] | | LAB | | | | [address];[place] | | | | | | [address] | | | | + + + + + + | MCV | 106.7 (H)Comment: | 80.0 - 100.0 fl | EXTERNAL | | | | Testing performed at | | LAB | | | | [facility];[address] | | | [address];[place] [address] | | | | + + + + + + | MCH | 36.4 (H)Comment: Testing | 27.0 - 34.0 pg | EXTERNAL | | | | performed at [facility];[address] | | LAB | | | | [address];[place] | | | | | | [address] | | | | + + + + + + | MCHC | 34.1Comment: Testing | 32.0 - 35.5 | EXTERNAL | | | | performed at [facility];888 | g/dL | LAB | | | | [address];[place] | | | | | | [address] | | | | + + + + + + | RDW-CV | 54.7 (H)Comment: Testing | 37 - 53 fl | EXTERNAL | | | | performed at [facility];[address] | | LAB | | | | [address];[place] | | | | | | [address] | | | | + + + + + + | Platelet | 168Comment: Testing | 150 - 400 K/uL | EXTERNAL | | | Count | performed at [facility];[address] | | LAB | | | Plasma | [address];[place] | | | | | | [address] | | | | + + + + + + | MPV | 9.1Comment: Testing | fl | EXTERNAL | | | | performed at [facility];[address] | | LAB | | | | [address];[place] | | | | | | [address] | | | | + + + [...] | performed at [facility] | | | | | | [address];[place] | | | | | | [address] | | | | + + + [...] EXTERNAL | | | | performed at [facility];888 | mmol/L | LAB | | | | [address];[place] | | | | | | [address] | | | | + + + + + + | K | 3.9Comment: Testing | 3.5 - 4.9 | EXTERNAL | | | | performed at [facility];888 | mmol/L | LAB | | | | [address];[place] | | | | | | [address] | | | | + + + + + + | Cl | 97 (L)Comment: Testing | 99 - 109 mmol/L | EXTERNAL | | | | performed at [facility];[address] | | LAB | | | | [address];[place] | | | | | | [address] | | | | + + + + + + | CO2 | 34 (H)Comment: Testing | 23 - 32 mmol/L | EXTERNAL | | | | performed at [facility];[address] | | LAB | | | | [address];[place] | | | | | | [address] | | | | + + + + + + | Anion Gap | 12Comment: Testing | 5 - 20 mmol/L | EXTERNAL | | | | performed at [facility];[address] | | LAB | | | | [address];[place] | | | | | | [address] | | | | + + + + + + | Glucose, | 87Comment: Testing | 65 - 99 mg/dL | EXTERNAL | | | Fasting | performed at [facility];[address] | | LAB | | | | [address];[place] | | | | | | [address] | | | | + + + + + + | BUN | 23Comment: Testing | 8 - 25 mg/dL | EXTERNAL | | | | performed at [facility];[address] | | LAB | | | | [address];[place] | | | | | | [address] | | | | + + + + + + | Creatinine | 6.4 (H)Comment: Testing | 0.50 - 1.00 | EXTERNAL | | | | performed at [facility];888 | mg/dL | LAB | | | | [address];[place] | | | | | | [address] | | | | + + + + + + | BUN/Creatin | 4Comment: Testing | | EXTERNAL | | | ine Ratio | performed at [facility];[address] | | LAB | | | | [address];[place] | | | | | | [address] | | | | + + + + + + | Calcium | 9.5Comment: Testing | 8.5 - 10.5 | EXTERNAL | | | | performed at [facility];888 | mg/dL | LAB | | | | [address];[place] | | | | | | [address] | | | | + + + [...] [facility];[address] | | | | | | [address];[place], [place] | | | | | | [address] | | | | + + + [...]
--- OUTSIDE RECORDS SUMMARY | ~2019-02-17 | XMS | Encounter Summary ---
Demographics + + + | Address | [address] | | | [place] [address] | + + + | Home Phone [...] | | | | | [place] [address] | | + + + + + | Thania Mallory | ECON | [address] | | | | | [place] [address] | | + + + + + | Deidra Weldon | ECON | [address] | | | | | [place] | | | | | [address] | | + + + + + Care Team Providers + +------+ + | Care Creative Engagement Director Name | Role | Phone | [...] + + | 12/25/ | Documentati | Transplant | Kelsi Martinez, | Lab Results (2nd | | 2013 | on | [address]ordinators [address] | RN [address] | ABO) | | | | [address]NAL[address] [facility] | [facility] | | | | | Rd [place], [place] | [place], [place] | | | | | [address] | [address] | | | | | [phone] | | | +--------+ + + + [...] Denise | | | | | | [place], [place] | | | | | | [address] | | | | | | [phone] | | | | | | | [...] - | | | | | | [place] | | + + + + + + | RH TYPE | Negative | | [facility] | | | | | | LAB - | | | | | | [place] | | + + + + + + | ANTIBODY | Negative | | [facility] | | | SCREEN | | | LAB - | | | | | | [place] | | + + + + + + | VARICELLA | Positive | | [facility] | | | ZOSTER IGG | | | LAB - | | | | | | [place] | | + + + + + + + + | Specimen | + + | Blood - Blood | + + + + + + + | Performing | Address | City/State/Zipcode | Phone Number | | Organization | | | | + + + + + | [facility] | [address] | [place] | [phone] | | [place] | | | | + + + + + documented in this encounter Visit Diagnoses Not on filedocumented in this encounter"
--- OUTSIDE RECORDS SUMMARY | ~2019-02-17 | XMS | Encounter Summary ---
Demographics + + + | Address | [address] | | | [place] [address] | + + + | Home Phone | | + + + | Preferred Language | Unknown | + + + | Marital Status | Single | + + + | Hindu Affiliation | Unknown | + + + | Race | Unknown | + + + | Ethnic Group | Unknown | + + + Author + + + | Author | [facility] | | | and Josephana | + + + | Organization | [facility] | | | and Josephana [...] Team Providers + +------+ + | Care Webbing Seamer Pound Net Name | Role | Phone | + +------+ + PCP | Unavailable | + +------+ + Encounter Details +--------+ + + + + | Date | Type | Department | Care Team | Description | +--------+ + + + + | 11/21/ | Abstract | [facility] [place] | Daniela Ibarra, | | | 2016 | | NEPHROLOGY [address] | [address] | | | | | [address] | [address] [place] | | | | | [place], [place] | [place] [address] | | | | | [address] | [phone] | | | | | [phone] | | | +--------+ + + + [...] of this encounter Progress Marilyn Jennings - 11/21/2016 4:47 PM PDTOutside record: Proof of need for a Reasonable A ccommodation, dos: 11/21/16. Sent to scan.Electronically signed by Marilyn Palumbo at 11/21 4:48 PM PDTdocumented in this encounter Plan of Treatment +--------+---------+ + + + | Date | Type | Specialty | Care Team | Description | +--------+---------+ + + + | 03/05/ | Office | Pulmonology | Denny Alexander | | | 2018 | Visit | | Deny Briggs MD [address] | | | | | | [address] | | | | | | [place] [address] | | | | | | [phone] | | | | | | | | +--------+---------+ + + + documented as of this encounter Visit Diagnoses Not on filedocumented in this encounter"
--- OUTSIDE RECORDS SUMMARY | ~2019-02-17 | XMS | Encounter Summary ---
Demographics + + + | Address | [address] | | | [place] [address] | + + + | Home Phone | | + + + | Preferred Language | Unknown | + + + | Marital Status | Single | + + + | Methodist Affiliation | Unknown | + + + | Race | Unknown | + + + | Ethnic Group | Unknown | + + + Author + + + | Author | [facility] | | | and Josephana | + + + | Organization | [facility] | | | and Josephana [...] Team Providers + +------+ + | Care Crossing Gateman Name | Role | Phone | + +------+ + PCP | Unavailable | + +------+ + Encounter Details +--------+ + + + + | Date | Type | Department | Care Team | Description | +--------+ + + + + | 04/17/ | Orders Only | [facility] | Jorje Camp | | | 2017 | | NEPHROLOGY [address] | M, DO [address] | | | | | [address] | [place] | | | | | [place], [place] | [place], [place] | | | | | [address] | [address] | | | | | [phone] | | | +--------+ + + + [...] [address] | | | | | | [place] [address] | | | | | | [phone] | | | | | | | | +--------+---------+ + + + documented as of this encounter Visit Diagnoses Not on filedocumented in this encounter"
--- OUTSIDE RECORDS SUMMARY | ~2019-02-17 | XMS | Encounter Summary ---
Demographics + + + | Address | [address] | | | [place] [address] | + + + | Home Phone [...] | | | | | [place] [address] | | + + + + + | Thania Mallory | ECON | [address] | | | | | [place] [address] | | + + + + + | Deidra Weldon | ECON | [address] | | | | | [place] | | | | | [address] | | + + + + + Care Team Providers + +------+ + | Care Voice Network Administrator Name | Role | Phone | [...] | | | | | [address] [facility] | [facility] | | | | | Rd [place], [place] | [place], [place] | | | | | [address] | [address] | | | | | [phone] | | | +--------+ + + + [...] Denise | | | | | | [place] | | | | | | [address] | | | | | | [phone] | | | | | | | | +--------+ + + + + documented as of this encounter Visit Diagnoses Not on filedocumented in this encounter"
--- OUTSIDE RECORDS SUMMARY | ~2019-02-17 | XMS | Encounter Summary ---
Demographics + + + | Address | [address] | | | [place] [address] | + + + | Home Phone [...] | | | | | [place] [address] | | + + + + + | Thania Mallory | ECON | [address] | | | | | [place] [address] | | + + + + + | Deidra Weldon | ECON | [address] | | | | | [place] | | | | | [address] | | + + + + + Care Team Providers + +------+ + | Care Field Organizer Name | Role | Phone | + [...] Allergic | Sudhakar Castellanos, | [address] | | | | | conchita | [address] | | | | | ([facility]) | Shun Griffin | Mailcode: | | | | | Procedures | Caro Chan | D[facility] | | | | | TRANSTHORACI | [place], [place] | [address] | | | | | C | [address] | [place], [place] | | | | | ECHOCARDIOGR | Phone: | [phone] | | | | | AM, PEDS | [phone] | Phone: | | | | | | Fax: | [phone] | | | | | | [phone] | Fax: | | | | | | | [phone] | +--------+--------+ + + + + Reason [...] | | Cardiology | Allergic | Sudhakar Castellanos | [address] | | | | | conchita | [address] | [facility] | | | | | (HCC) | Shun Griffin | Mailcode: | | | | | Procedures | Caro Chan | D[facility] | | | | | TRANSTHORACI | [place], [place] | [address] | | | | | C | [address] | [place], [place] | | | | | ECHOCARDIOGR | Phone: | [phone] | | | | | AMKAJALS | [phone] | Phone: | | | | | | Fax: | [phone] | | | | | | [phone] | Fax: | | | | | | | [phone] | +--------+--------+ + + + + Encounter Details +--------+ + + + + | Date | Type | Department | Care Team | Description | +--------+ + + + + | 12/20/ | Hospital | Pediatric Echo Lab | | | | 2012 | Encounter | at [facility] [address] | | | | | | [place] Mailcode: | | | | | | [address] [place] | | | | | | [place], [place] | | | | | | [address] | | | | | | [phone] | | | +--------+ + + + [...] Denise | | | | | | [place], [place] | | | | | | [address] | | | | | | [phone] | | | | | | | [...]
--- OUTSIDE RECORDS SUMMARY | ~2019-02-17 | XMS | Encounter Summary ---
Demographics + + + | Address | [address] | | | [place] [address] | + + + | Home Phone | | + + + | Preferred Language | Unknown | + + + | Marital Status | Single | + + + | Cheondoism Affiliation | Unknown | + + + [...] | | | | | [place] [address] | | + + + + + | Thania Mallory | ECON | [address] | | | | | [place] [address] | | + + + + + | Deidra Weldon | ECON | [address] | | | | | [place] | | | | | [address] | | + + + + + Care Team Providers + +------+ + | Care Supervisor Press Room Name | Role | Phone | + [...] | 2016 | | [address]ordin[address] | [address] | consultation | | | | [address] | (psychosocial update | | | | Rd [place], [place] | [place], [place] | from pt's mom) | | | | [address] | [address] | | | | | [phone] | | | +--------+ + + + [...] Denise | | | | | | [place] | | | | | | [address] | | | | | | [phone] | | | | | | | | +--------+ + + + + documented as of this encounter Visit Diagnoses Not on filedocumented in this encounter"
--- OUTSIDE RECORDS SUMMARY | ~2019-02-17 | XMS | Encounter Summary ---
Demographics + + + | Address | [address] | | | [place] [address] | + + + | Home Phone [...] | | | | | [place] [address] | | + + + + + | Thania Mallory | ECON | [address] | | | | | [place] [address] | | + + + + + | Deidra Weldon | ECON | [address] | | | | | [place] | | | | | [address] | | + + + + + Care Team Providers + +------+ + | Care Cnc Wood Lathe Operator Name | Role | Phone | [...] + + | 11/30/ | Abstract | Transplant | Sudhakar Joy | Transplant Form | | 2012 | | [address] | MD Emanuel [address] | Update (Evaluation | | | | [address] [facility] | [facility] [address] | Scheduled) | | | | [place], [place] | [place], [place] | | | | | [address] | [address] | | | | | [phone] | [phone] | | | | | | | [...] Denise | | | | | | [place] | | | | | | [address] | | | | | | [phone] | | | | | | | | +--------+ + + + + documented as of this encounter Visit Diagnoses Not on filedocumented in this encounter"
--- OUTSIDE RECORDS SUMMARY | ~2019-02-17 | XMS | Encounter Summary ---
Demographics + + + | Address | [address] | | | [place] [address] | + + + | Home Phone [...] Author | [facility] | | | and Josephana | + + + | Organization | [facility] | | | and [...] Team Providers + +------+ + | Care Nanotechnology Engineering Technician Name | Role | Phone | + +------+ + PCP | Unavailable | + +------+ + Encounter Details +--------+ + + + + | Date | Type | Department | Care Team | Description | +--------+ + + + + | 08/16/ | Documentati | [facility] | Jorje Camp | | | 2016 | on | NEPHROLOGY [address] | M, DO [address] | | | | | [address] | [place] | | | | | [place], [place] | [place], [place] | | | | | [address] | [address] | | | | | [phone] | | | +--------+ + + + [...] + + + | Blood Pressure | 141/60 | 08/23/2015 3:10 PM | | | | | PDT | | + + + + + | Pulse | - | - | | + + + + + | Temperature | 36.5 C (97.7 F) | 08/23/2015 3:10 PM | | | | | PDT [...] + documented in this encounter Progress Notes Marilyn Palumbo - 08/31/2015 10:30 AM PDTHemodialysis progress note e-faxed to Jamil Levi in [facility], Sudhakar Joy MD at [facility], Doyle Diaz MD (fx: [phone]) on 08/31/15.Electronically signed by Marilyn Palumbo at 10:32 AM Jorje Echols DO - 08/23/2015 3:10 PM PDT Subjective: DIALYSIS NOTE Patient ID: Dara Weldon is a 20 y.o. female. 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 She also has anemia secondary to CKD, SHPTH, centripetal obesity . Unfort unately, she fairly apathetic here when interviewed in the [facility] clinic on rounds.her at tendance is better.after inquiry, she has no formal plans for employment or future education . I've encouraged her to discuss this with counselors or particularly, vocational counselor s. Otherwise, she is very pleasant here in clinic. She had some trouble with an AVF venous stenosis, and had PRODUCTION OPERATIONS MANAGER with an Alysia Castillo last week. Apparently there is stenosis at a prior endovascular stent.her BP is high this treatment 220 240 mmHg. Additionally, she is still having very large inter-dialytic weight gains.I rev iewed this with her on several occasions. Outpatient Prescriptions Marked as Taking for the 08/17/15 encounter (Documentation) with Kimberly Camp, Medication Sig Dispense Refill albuterol 90 mcg/puff inhaler Inhale 2 puffs into the lungs every 6 hours as needed for Wheezing. 1 Inhaler 11 cinacalcet (SENSIPAR) 90 MG tablet Take 1 tablet by mouth Daily (with dinner). 90 table t 4 iron sucrose (VENOFER) 20 mg/mL injection Inject [...] tapes Morphine Itching and Rash Objective: BP 141/60 mmHg | Temp(Src) 36.5 C (97.7 F) EDW 101.5 kg Physical Exam Heart: Regular rate and rhythm with no S3, S4, murmur or rub. Lungs: CTA bilaterally. No rales or wheezes. Abdomen: Soft, obese, nontender, normoactive bowel sounds, no CVA tenderness.. Extremities: No clubbing, cyanosis, or edema. QB 400 at left arm AVF. LAB: BUN 46, Cr 9.6, K+ 4.5, HCO3 22, Ca++ 9.3, phosphorus 8.1, albumin 3.5, PTH 1040, Hb 12.4, eKT/V = 1.83. Assessment: 1. ESRD--her adequacy is stable on her current Rx, however, I have cautioned her that very large inter-dialytic weight gains could be associated with cardiomyopathy long-term. 2. Hypertension--BP is stable at her current dry weight. 3. SHPTH--her PTH continues to trend upward. I am not convinced that she is taking her Se nsipar? Also, reviewed with her features of a 1000 mg phosphorus restriction likely foods t hat are rich in phosphorus. 4. Nutrition--serum albumin is decreased.no obvious inflammation on PE. She states that she is preparing her own meals and that she currently has an apartment.5. Transplantation-- honestly , I think that Dara is too immature to monitor a renal allograft and its attenda nt immunosuppression at this point. My gut feeling is that she would be at high risk for gr aft loss due to noncompliance ? Hopefully, with time, her behavior will change . 6. Anemia-- she appears to that an robust response to her recent EPO. Currently, her E SA therapy is on hold until Hb <11.0 g/dl. 7. Centripetal obesity--about the same. I have counseled Dara about pursuing some form of regular exercise. 8. 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 Plan: 1. Due to her recent AVF thrombosis, and indwelling stent, will have her begin ASA 81 mg d aily, + Plavix 75 mg daily. She denies any history of PUD. 2. I discussed with Dara that her hyperphosphatemia, and worsening CKD MBD is worrisom e for cardiovascular risk.I explained the necessity of taking Renvela exactly AC&HS.also I d iscussed that subtotal parathyroidectomy may be helpful long-term to decrease her dependence on meds. She is not enthusiastic about that. 3. After reviewing the Care Everywhere tab in Epic, I noticed that she is still being eval uated for a possible renal allograft at [facility].honestly, given her recent suboptimal compliance with fluid gains, hyperphosphatemia, and missed treatments I think anitha quarles would be at high risk for graft loss from noncompliance? Will attempt to get in touch wit h Dr. Joy, Pediatric Nephrology. 4. Will recheck her in one week. I appreciate Dr. Diaz's help with her recent fistulogram . CC: [place] Fina Joy M.D., Pediatric Nephrology, [facility] Doyle Diaz M.D., IR, [facility] documented in thi s encounter Plan of Treatment +--------+---------+ + + + | Date | Type | Specialty | Care Team | Description | +--------+---------+ + + + | 03/05/ | Office | Pulmonology | Denny Alexander | | | 2018 | Visit | | Deny Briggs MD [address] | | | | | | [address] | | | | | | [place] [address] | | | | | | [phone] | | | | | | | | +--------+---------+ + + + documented as of this encounter Visit Diagnoses + + | Diagnosis | + + | ESRD (end stage renal disease) (HCC) - Primary End stage renal disease | + + documented in this encounter"
--- OUTSIDE RECORDS SUMMARY | ~2019-02-17 | XMS | Encounter Summary ---
Demographics + + + | Address | [address] | | | [place] [address] | + + + | Home Phone [...] | | | | | [place] [address] | | + + + + + | Thania Mallory | ECON | [address] | | | | | [place] [address] | | + + + + + | Deidra Weldon | ECON | [address] | | | | | [place] | | | | | [address] | | + + + + + Care Team Providers + +------+ + | Care Senior Solutions Architect Name | Role | Phone | [...] | Update | | | | [address] [facility] | [facility] | | | | | Rd [place], [place] | [place], [place] | | | | | [address] | [address] | | | | | [phone] | | | +--------+ + + + [...] [place] | | | | | | [address] | | | | | | [phone] | | | | | | | | +--------+ + + + + documented as of this encounter Visit Diagnoses Not on filedocumented in this encounter"
--- OUTSIDE RECORDS SUMMARY | ~2019-02-17 | XMS | Encounter Summary ---
Demographics + + + | Address | [address] | | | [place] [address] | + + + | Home Phone [...] | | | | | [place] [address] | | + + + + + | Thania Mallory | ECON | [address] | | | | | [place] [address] | | + + + + + | Deidra Weldon | ECON | [address] | | | | | [place] | | | | | [address] | | + + + + + Care Team Providers + +------+ + | Care Museum Preparator Name | Role | Phone | + [...] Review | | 2012 | on | Coordinators [address] | RN [address] | Decision | | | | [facility] | [facility] | | | | | Rd [place], [place] | [place], [place] | | | | | [address] | [address] | | | | | [phone] | | | +--------+ + + + [...] [place] | | | | | | [address] | | | | | | [phone] | | | | | | | | +--------+ + + + + documented as of this encounter Visit Diagnoses Not on filedocumented in this encounter"
--- OUTSIDE RECORDS SUMMARY | ~2019-02-17 | XMS | Encounter Summary ---
Demographics + + + | Address | [address] | | | [place] [address] | + + + | Home Phone [...] | | | | | [place] [address] | | + + + + + | Thania Mallory | ECON | [address] | | | | | [place] [address] | | + + + + + | Deidra Weldon | ECON | [address] | | | | | [place] | | | | | [address] | | + + + + + Care Team Providers + +------+ + | Care Cooperative Extension Agent Name | Role | Phone | [...] + + | 10/31/ | Abstract | Transplant | Jesus Edmond, | Transplant Form | | 2012 | | Coordinators [address] | [address] | Update | | | | ANNALISA [address] [facility] | [facility] | | | | | [place], [place] | [place], [place] | | | | | [address] | [address] | | | | | [phone] | [phone] | | | | | | | [...] Denise | | | | | | [place], [place] | | | | | | [address] | | | | | | [phone] | | | | | | | | +--------+ + + + + documented as of this encounter Visit Diagnoses Not on filedocumented in this encounter"
--- OUTSIDE RECORDS SUMMARY | ~2019-02-17 | XMS | Encounter Summary ---
Demographics + + + | Address | [address] | | | [place] [address] | + + + | Home Phone [...] + + + | Author | [facility] | | | and Josephana | + + + | Organization | [facility] | | | and [...] Team Providers + +------+ + | Care Helper Metal Hanging Name | Role | Phone | + [...] | | | | [address] | [place], [place] | [place], [place] | | | | | stage renal | [address] | [address] Phone: | | | | | disease | Phone: | [phone] | | | | | ([facility]) | [phone] | Fax: | | | | | Infection | Fax: | [phone] | | | | | and | [phone] | | | | | | inflammatory | | | | | | | reaction | | | | | | | due to | | | | | | | peritoneal | | | | | | | dialysis | | | | | | | catheter | | | | | | | Procedures | | | | | | | HI OFFICE | | | | | | | OUTPATIENT | | | | | | | VISIT 25 | | | | | | | MINUTES | | | +--------+--------+ + + + + Encounter Details +--------+ + + + + | Date | Type | Department | Care Team | Description | +--------+ + + + + | 06/30/ | Off-Site | [facility] [place] | Jorje Camp | ESRD (end stage | | 2015 | Visit | NEPHROLOGY [address] | M, DO [address] | renal disease) ([facility]) | | | | [address] | [place], [address] | (Primary Dx); | | | | [place], [place] | [place], [place] | Anemia in ESRD | | | | [address] | [address] | (end-stage renal | | | | [phone] | | disease) ([facility]) | +--------+ + + + + [...] + + + | Blood Pressure | 132/74 | 06/30/2014 4:01 PM | | | | | PDT | | + + + + + | Pulse | - | - | | + + + + + | Temperature | 36.3 C (97.4 F) | 06/30/2014 4:01 PM | | | | | PDT [...] encounter Progress Notes Jorje Camp DO - 07/05/2014 4:01 PM PDT Subjective: DIALYSIS NOTE Patient ID: Dara Weldon is a 19 y.o. female. 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 She also has anemia secondary to CKD, SHPTH, centripetal obesity . Outpatient Prescriptions Marked as Taking for the 06/30/14 encounter (Off-Site Visit) with Camille Camp DO [...] tablet by mouth Daily. 60 tablet 4 Iron Sucrose (VENOFER IV) Inject 100 mg into the vein Three times a week. renal multivitamin (DIALYVITE, VOL-CARE) TABS Take 1 tablet by mouth every evening. 90 tablet 4 sevelamer carbonate (RENVELA) 800 mg tablet Take 2,400 mg by mouth 3 times daily (with meals). 3 tablets with meals and 2 tablets with snacks Allergies Allergen Reactions Adhesive & Tape Rash Certain tapes Morphine Itching and Rash Objective: BP 132/74 | Temp(Src) 36.3 C (97.4 F) EDW 98 kg Physical Exam Heart: Regular rate and rhythm with no S3, S4, murmur or rub. Lungs: CTA bilaterally. No rales or wheezes. Abdomen: Soft, obese, nontender, normoactive bowel sounds. Extremities: No clubbing, cyanosis, or edema. (+) Left arm AVF is approximately 3-4 mm wi th a (+) bruit. LAB: BUN 53, Cr 9.6, K+ 3.7, HCO3 22, Ca++ 8.9, phosphorus 8.9, PTH 631, albumin 3.7, Hb 1 1.8, KT/V = 1.89. Assessment: 1. ESRD--she appears well dialyzed by the most recent KT/V. Her energy level is excellent , although she is somewhat sedentary. She is matriculating successfully in high school. 2. Hypertension--good control at current dry weight. 3. SHPTH--phosphorus control is worsening. I reviewed with her features of a 1000 mg phos phorus restriction/day. Her PTH is slightly increased. We will see if this is improved wit h better phosphorus control, if not she may need to increase Sensipar to 60 mg daily. 4. Nutrition--albumin is decreased slightly. No inflammation on PE. I discussed with her about maximizing her intake of high biological value protein, daily. 5. Transplantation--overall think she would be an excellent candidate. 6. Anemia-- Hb is above target range. Will need to hold the EPO and recheck Hb weekly. W e'll resume her EPO when the Hb <11.0 g/dl. Recheck iron profile next quarter. Plan: 1. Will hold EPO until Hb is between 10-11 g/dl. 2. I counseled Dara about the necessity of taking her phosphorus binders exactly AC&HS. She does have a busy lifestyle, as expected, for high school student. She is very excited about her approaching commencement. 3. Will recheck phosphorus next month and wants better will titrate up her Hectorol dose t o target PTH <300 pg/ML. She will be rechecked in 2 weeks. CC: Jamil Joy MD, [facility], [facility] Blake Chavarria MD, FACS documented in thi [...] [address] | | | | | | [place] [address] | | | | | | [phone] | | | | | | | [...]
--- OUTSIDE RECORDS SUMMARY | ~2019-02-17 | XMS | Encounter Summary ---
Demographics + + + | Address | [address] | | | [place] [address] | + + + | Home Phone [...] | | | | | [place] [address] | | + + + + + | Thania Mallory | ECON | [address] | | | | | [place] [address] | | + + + + + | Deidra Weldon | ECON | [address] | | | | | [place] | | | | | [address] | | + + + + + Care Team Providers + +------+ + | Care Commercial Loan Collection Officer Name | Role | Phone | [...] | | | | | [place], | | | | | | [place] [address] | | | +--------+ + + + [...] Denise | | | | | | [place], [place] | | | | | | [address] | | | | | | [phone] | | | | | | | [...] DANILO - | [address], | [place] [address] | | | IMMUNOGENETICS/TRANS | [address] | | | | [facility] | | | | + + + + + documented in this encounter Visit Diagnoses Not on filedocumented in this encounter"
--- OUTSIDE RECORDS SUMMARY | ~2019-02-17 | XMS | Encounter Summary ---
[...] | | | | | [place] [address] | | + + + + + | Thania Mallory | ECON | [address] | | | | | [place] [address] | | + + + + + | Deidra Weldon | ECON | [address] | | | | | [place] | | | | | [address] | | + + + + + Care Team Providers + +------+ + | Care System Planning Engineer Name | Role | Phone | [...] + + | 01/24/ | Documentati | Transplant | Mariza Hsu | Social work | | 2012 | on | Coordinators [address] | [address] | consultation (f/u on | | | | [address] | [address] | [place] issues with | | | | Rd [place], [place] | [place], [place] | pt's dad) | | | | [address] | [address] | | | | | [phone] | | | +--------+ + + + [...] [place] | | | | | | [address] | | | | | | [phone] | | | | | | | | +--------+ + + + + documented as of this encounter Visit Diagnoses Not on filedocumented in this encounter"
--- OUTSIDE RECORDS SUMMARY | ~2019-02-17 | XMS | Encounter Summary ---
Demographics + + + | Address | [address] | | | [place] [address] | + + + | Home Phone [...] + + + | Author | [facility] | | | and Josephana | + + + | Organization | [facility] | | [...] | | [address] | [place] | | | | | [place], [place] | [place], [place] | | | | | [address] | [address] | | | | | [phone] | | | +--------+--------+ + + + [...] | | | | | [place] [address] | | | | | | [phone] | | | | | | | | +--------+---------+ + + + documented as of this encounter Visit Diagnoses Not on filedocumented in this encounter"
--- OUTSIDE RECORDS SUMMARY | ~2019-02-17 | XMS | Encounter Summary ---
Demographics + + + | Address | [address] | | | [place] [address] | + + + | Home Phone [...] | | | | | [place] [address] | | + + + + + | Thania Mallory | ECON | [address] | | | | | [place] [address] | | + + + + + | Deidra Weldon | ECON | [address] | | | | | [place] | | | | | [address] | | + + + + + Care Team Providers + +------+ + | Care Automotive Engineer Name | Role | Phone | [...] (Immunizations) | | | | ANNAL[address] [facility] | [facility] | | | | | Rd [place], [place] | [place], [place] | | | | | [address] | [address] | | | | | [phone] | | | +--------+ + + + [...] Denise | | | | | | [place], [place] | | | | | | [address] | | | | | | [phone] | | | | | | | | +--------+ + + + + documented as of this encounter Visit Diagnoses Not on filedocumented in this encounter"
--- OUTSIDE RECORDS SUMMARY | ~2019-02-17 | XMS | Encounter Summary ---
Demographics + + + | Address | [address] | | | [place] [address] | + + + | Home Phone [...] | Author | [facility] | | | and Josephana | + + + | Organization | [facility] | | | and [...] Team Providers + +------+ + | Care Water Quality Technician Name | Role | Phone | [...] + + | 12/10/ | Hospital | [facility] | Rayray Powers MD | Sepsis, due to | | 2019 - | Encounter | [facility] | [address] | unspecified | | | | CARE FLOOR [address] | [place], [place] | organism, | | 12/14/ | | [address] | [address] | unspecified whether | | 2019 | | [place], [place] | [phone] | acute organ | | | | [address] | | dysfunction present | | | | [phone] | Lee Harris MD | ([facility]LY [facility]) (Primary Dx); | | | | | [address] | Pneumonia of right | | | | | [place] [address] | lower lobe due to | | | | | [phone] | infectious organism | | | | | | ([facility]); Hypoxia; | | | | | Jw Neri, DO [address] | Hypervolemia, | | | | | [address] | unspecified | | | | | [place] [address] | hypervolemia type; | | | | | [phone] | ESRD on dialysis | | | | | | ([facility]); Hyperkalemia; | | | | | | Acute on chronic | | | | | | respiratory failure | | | | | | with hypoxia and | | | | | | hypercapnia ([facility]); | | | | | | Acute respiratory | | | | | | failure with hypoxia | | | | | | ([facility]); Anemia in | | | | | | ESRD (end-stage | | | | | | renal disease) | | | | | | ([facility]); At high risk | | | | | | for electrolyte | | | | | | imbalance; Awaiting | | | | | | organ transplant | | | | | | status; 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 | | | | | | failure ([facility]); | | | | | | Chronic right-sided | | | | | | heart failure ([facility]); | | | | | | 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 | | | | | | ([facility]); ESRD on | | | | | | hemodialysis ([facility]); | | | | | | History [...] | | | | | function ([facility]); | | | | | | Moderate to severe | | | | | | pulmonary | | | | | | hypertension ([facility]); | | | | | | Low grade fever; | | | | | | Noncompliance of | | | | | | patient with renal | | | | | | dialysis ([facility]); | | | | | | Pleural [...] note might be different from pierre coleman. [facility] Service: Hospitalist Physician Discharge Summary Patient [...] to Gram-positive bacteria 12/12/2018 Clotted dialysis access ([facility]) 2014 Congestive heart failure ([facility]) ESRD (end stage renal disease) ([facility]) HSP (Henoch-Schonlein purpura) nephritis ([facility]) 1987 Hypertension Pericardial effusion without cardiac tamponade 11/07/2018 Past Surgical History: Procedure Laterality Date ABDOMEN SURGERY AV FISTULA REPAIR 02/24/2014 LEFT Radical Cephalic Fistula Creation; Laterality: Left; Surgeon: Blake Chavarria MD ; Location: [facility] MAIN OR AV FISTULA REPAIR Left 03/07/2014 Procedure: AV FISTULA - GRAFT REPAIR/REVISION; Surgeon: Rik Simon MD; Location: [facility] OR; Service: Vascular; Laterality: Left; biopsy of kidney age 10 DIALYSIS FISTULA CREATION 04/08/2014 Procedure: DIALYSIS CATHETER - INSERTION; Surgeon: Rik Simon MD; Location: [facility] OR ; Service: Vascular; Laterality: N/A; tunneled catheter.br hemodialysis catheter KIDNEY BIOPSY Left 2003 OTHER SURGICAL HISTORY LAPAROSCOPIC PERITONEAL DIALYSIS CATHETER INSERTION - x2 OTHER SURGICAL HISTORY Right 07/2013 LAPAROSCOPIC PERITONEAL DIALYSIS CATHETER INSERTION - current dialysis access MWF dialysis OTHER SURGICAL HISTORY Left 06/24/2014 SUPERFICIALIZATION OF AV FISTULA - Procedure: AV FISTULA - SUPERFICIALIZATION; Surgeon: Emanuel Simon MD; Location: [facility] MAIN OR; Service: Vascular; Laterality: Left; OTHER SURGICAL HISTORY Left 04/08/2014 AV FISTULA PLACEMENT - Procedure: AV FISTULA; Surgeon: Rik Simon MD; Location: [facility] OR; Service: Vascular; Laterality: Left; [...] hours. No results for input(s): PHART, PO2ART, UBZ0LUC, U1UVABIR, BEART in the last 168 hours. No results for input(s): APTT, INR, PTT in the last 168 hours. No results for input(s): TSH in the last 168 hours. Invalid input(s): T3FREE, FREET4 No results for input(s): TROPONINT in the last 168 hours. Invalid input(s): CKTOTAL, TROPONINI, CKMBINDEX Disposition: home No discharge procedures on file. Follow up: Jonathan Alonso MD [address] [facility] [address] Schedule an appointment as soon as possible for a visit hospital follow up Jorje Stewart, [address] [facility] [address] [facility] [address] Schedule an appointment as soon as possible [...] be sent through Care Everywhere.Leti Whitt (Adult) (Armenian)documented in this encounter Medications at Time of [...] renal disease) ([facility]) | protocol | | | | | [...] Yanes MD - 12/14/2018 10:16 AM PDT [facility] Service: Infectious Diseases Progress Note Hospital Day: [...] Procedure Component Value Units Date/Time Culture, Blood [[id number]] Collected: 12/12/18 1943 Order Status: Canceled Lab Status: No result Specimen: Peripheral Blood Culture, Body Fluid Sterile [[id number]] Order Status: No result Lab Status: No result Specimen: Body Fluid from Pleural Fluid, Right Culture, Blood [[id number]] Collected: 12/12/18 0502 Order Status: Completed Lab Status: Preliminary result Updated: 12/13/18 1324 Specimen: Peripheral Blood Special Requests RWRIST Special Requests Testing performed at [facility];[address] [place] [address] RESULT NO GROWTH AT THIS TIME RESULT Testing performed at [facility], [address] [place] [address] Comment: Testing performed at [facility], [address] [place] [address] Influenza A and B RNA, NAAT [[id number]] Collected: 12/11/18 1556 Order Status: Completed Lab Status: Final result Updated: 12/11/18 1619 Influenza A NEGATIVE Influenza B NEGATIVE Comment: Testing performed by Molecular Methodology Testing performed at [facility];[address] [place] [address] Flu Swab Collection [[id number]] Collected: 12/11/18 1546 Order Status: Completed Lab Status: Final result Updated: 12/11/18 1549 Specimen: Tissue from Nasopharynx Collection SPECIMEN RECEIVED IN LAB Comment: Testing performed at [facility];[address] [place] [address] Culture, Blood [[id number]] Collected: 12/11/18 0615 Order Status: Completed Lab Status: Preliminary result Updated: 12/12/18 1134 Specimen: Peripheral Blood Special Requests RAC Special Requests Testing performed at [facility];[address] [place] [address] RESULT NO GROWTH AT THIS TIME RESULT Testing performed at [facility], [address] [place] [address] Comment: Testing performed at [facility], [address] [place] [address] Culture, Blood [[id number]] (Abnormal) Collected: 12/10/18 2343 Order Status: Completed Lab Status: Final result Updated: 12/13/18 1009 Specimen: Blood from Line Gram Stain Result -- GRAM POSITIVE COCCI IN CLUSTERS SEEN IN AEROBIC BOTTLE SEEN IN ANAEROBIC BOTTLE Gram Stain Result -- SMEAR RESULTS CALLED TO AND READ BACK BY: Brigitte CARTER @ 0586 12/11/18 CDS RESULT STAPHYLOCOCCUS SPECIES, COAGULASE NEGATIVE RESULT GROWTH IN TWO OF TWO BOTTLES RESULT -- TIME TO DETECTION: 0.69 DAYS RESULT POSSIBLE CONTAMINANT, CLINICAL CORRELATION REQUIRED. RESULT Testing performed at [facility], [address] [place] [address] Comment: Testing performed at [facility], [address] [place] [address] Microbiology Results (72 hrs) Procedure Component Value Units Date/Time Culture, Blood [[id number]] Collected: 12/12/18 0502 Order Status: Completed Lab Status: Preliminary result Updated: 12/13/18 1324 Specimen: Peripheral Blood Special Requests RWRIST Special Requests Testing performed at [facility];[address] [place] [address] RESULT NO GROWTH AT THIS TIME RESULT Testing performed at [facility], [address] [place] [address] Comment: Testing performed at [facility], [address] [place] [address] Influenza A and B RNA, NAAT [[id number]] Collected: 12/11/18 1556 Order Status: Completed Lab Status: Final result Updated: 12/11/18 1619 Influenza A NEGATIVE Influenza B NEGATIVE Comment: Testing performed by Molecular Methodology Testing performed at [facility];[address] [place] [address] Flu Swab Collection [[id number]] Collected: 12/11/18 1546 Order Status: Completed Lab Status: Final result Updated: 12/11/18 1549 Specimen: Tissue from Nasopharynx Collection SPECIMEN RECEIVED IN LAB Comment: Testing performed at [facility];[address] [place] [address];[place] [address] IMAGING: No new images for review today. [...] was completed later after rounds. Dictation software, [employer], was used which may contain error for [...] Santos, DO - 12/04 2:42 PM PDT [facility] Service: Hospitalist Progress Note Pt: Dara Weldon [...] PASP is 73 mmHg - Baseline weight [id number]. In acute exacerbation - HD per nephrology [...] 12/11, Jw Neri DO 12/13/2018 14:42 Reno aSeed MD - 12/13/2018 11:32 AM PDTFormatting of this note might be different from the [facility] Service: Infectious Diseases Progress Note Hospital Day: [...] Consult Continuous Infusions: heparin 400 Units/hr (12/12/18 7612) PRN Meds:.acetaminophen, albumin, albuterol-ipratropium, nitroglycerin, ondansetron, oxyCOD [...] Procedure Component Value Units Date/Time Culture, Blood [[id number]] Collected: 12/12/18 194 Order Status: Canceled Lab Status: No result Specimen: Peripheral Blood Culture, Body Fluid Sterile [[id number]] Order Status: No result Lab Status: No result Specimen: Body Fluid from Pleural Fluid, Right Culture, Blood [[id number]] Collected: 12/12/18 0502 Order Status: Sent Lab Status: In process Updated: 12/12/18 1005 Specimen: Peripheral Blood Influenza A and B RNA, NAAT [[id number]] Collected: 12/11/18 1556 Order Status: Completed Lab Status: Final result Updated: 12/11/18 1619 Influenza A NEGATIVE Influenza B NEGATIVE Comment: Testing performed by Molecular Methodology Testing performed at [facility];[address] [place] [address] Flu Swab Collection [[id number]] Collected: 12/11/18 1546 Order Status: Completed Lab Status: Final result Updated: 12/11/18 1549 Specimen: Tissue from Nasopharynx Collection SPECIMEN RECEIVED IN LAB Comment: Testing performed at [facility];[address] [place] [address] Culture, Blood [[id number]] Collected: 12/11/18 0615 Order Status: Completed Lab Status: Preliminary result Updated: 12/12/18 1134 Specimen: Peripheral Blood Special Requests RAC Special Requests Testing performed at [facility];[address] [place] [address] RESULT NO GROWTH AT THIS TIME RESULT Testing performed at [facility], [address] [place] [address] Comment: Testing performed at [facility], [address] [place] [address] Culture, Blood [[id number]] (Abnormal) Collected: 12/10/18 2343 Order Status: Completed Lab Status: Final result Updated: 12/13/18 1009 Specimen: Blood from Line Gram Stain Result -- GRAM POSITIVE COCCI IN CLUSTERS SEEN IN AEROBIC BOTTLE SEEN IN ANAEROBIC BOTTLE Gram Stain Result -- SMEAR RESULTS CALLED TO AND READ BACK BY: Brigitte CARTER 6RDerick @ 2204 12/11/18 CDS RESULT STAPHYLOCOCCUS SPECIES, COAGULASE NEGATIVE RESULT GROWTH IN TWO OF TWO BOTTLES RESULT -- TIME TO DETECTION: 0.69 DAYS RESULT POSSIBLE CONTAMINANT, CLINICAL CORRELATION REQUIRED. RESULT Testing performed at [facility], [address] [place] [address] Comment: Testing performed at [address] [address] Microbiology Results (72 hrs) Procedure Component Value Units Date/Time Culture, Blood [[id number]] Collected: 12/12/18 0502 Order Status: Sent Lab Status: In process Updated: 12/12/18 1005 Specimen: Peripheral Blood Influenza A and B RNA, NAAT [[id number]] Collected: 12/11/18 1556 Order Status: Completed Lab Status: Final result Updated: 12/11/18 1619 Influenza A NEGATIVE Influenza B NEGATIVE Comment: Testing performed by Molecular Methodology Testing performed at [facility];[address] [place] [address] Flu Swab Collection [[id number]] Collected: 12/11/18 1546 Order Status: Completed Lab Status: Final result Updated: 12/11/18 1549 Specimen: Tissue from Nasopharynx Collection SPECIMEN RECEIVED IN LAB Comment: Testing performed at [facility];[address] [place] [address] Culture, Blood [[id number]] Collected: 12/11/18 0615 Order Status: Completed Lab Status: Preliminary result Updated: 12/12/18 1134 Specimen: Peripheral Blood Special Requests RAC Special Requests Testing performed at [facility];[address] [place] [address] RESULT NO GROWTH AT THIS TIME RESULT Testing performed at [facility], [address] [place] [address] Comment: Testing performed at [facility], [address] [place] [address] Culture, Blood [[id number]] (Abnormal) Collected: 12/10/18 2343 Order Status: Completed Lab Status: Final result Updated: 12/13/18 1009 Specimen: Blood from Line Gram Stain Result -- GRAM POSITIVE COCCI IN CLUSTERS SEEN IN AEROBIC BOTTLE SEEN IN ANAEROBIC BOTTLE Gram Stain Result -- SMEAR RESULTS CALLED TO AND READ BACK BY: Brigitte CARTER @ 5326 12/11/18 CDS RESULT STAPHYLOCOCCUS SPECIES, COAGULASE NEGATIVE RESULT GROWTH IN TWO OF TWO BOTTLES RESULT -- TIME TO DETECTION: 0.69 DAYS RESULT POSSIBLE CONTAMINANT, CLINICAL CORRELATION REQUIRED. RESULT Testing performed at [facility], [address] [place] [address] Comment: Testing performed at [facility], [address] [place] [address] IMAGING: No new images for review today. [...] was completed later after rounds. Dictation software, [employer], was used which may contain error for [...] heparin 400 Units/hr (12/12/18 0827) Vida Whittaker, [facility] - 12/12/2018 1:37 PM PDTClinical Pharmacy Note: [...] e might be different from the original. [facility] Adult Hospitalist Progress Note Hospital Day: 1 [...] Ma, MD 8:29 12/12/2018 rost, Taylor Linda, [facility] - 1 7:46 PM PDT Clinical Pharmacy [...] [address] | | | | | | [place] [address] | | | | | | [phone] | | | | | | | [...] R?MRN: | | | | | | [id number] | | | [id number] | | | riteri | | | [...] | | | St. | | | [place] | | | y | | | [...] | | | St. | | | [place] | | | y | | | [...] | | | St. | | | [place] | | | y | | | [...] | | | St | | | [place] | | | y | | | [...] St | | | | | | [place] | | | y | | | [...] | | | St. | | | [place] | | | y | | | [...] | | | St. | | | [place] | | | y H. | | [...] | | | St. | | | [place] | | | y H. | | [...] | | | St. | | | [place] | | | y H. | | [...] | | | St. | | | [place] | | | y H. | | [...] | | | St. | | | [place] | | | y H. | | [...] | | | St. | | | [place] | | | y H. | | [...] | | | St. | | | [place] | | | y H. 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 on [...] | | | | | | at [facility], [address] | | | | | | [facility], | | | | | | [place] [address] | | | | | |Testing performed at [facility], [address] [place] [address] | | | | | | | | | | + + +---- + + + + + | Specimen | + + | Blood | + + + + + + + | Performing | Address | City/State/Zipcode | Phone Number | | Organization | | | | + + + + + | [facility] | [address] | [place] [address] | [phone] | + + + + + Basic [...] 7 (L)Comment: GFR <60: | >60 | [facility] | | | GFR | [...] | | | | | | MDRD [facility] traceable | | | | | | equation.Testing | | | | | | performed at [facility], [address] | | | | | | [facility], | | | | | | [place] [address] | | | | + + + + + + + + | Specimen | + + | Blood | + + + + + + + | Performing | Address | City/State/Zipcode | Phone Number | | Organization | | | | + + + + + | [facility] | [address] | [place] [address] | [phone] | + + + + + XR [...] | | | | | performed at [facility], [address] | | | | | | [facility], | | | | | | [place] [address] | | | | + + + + + + + + | Specimen | + + | Blood | + + + + + + + | Performing | Address | City/State/Zipcode | Phone Number | | Organization | | | | + + + + + | [facility] | [address] | [place] [address] | [phone] | + + + + + [place] [...] [facility]RE[facility] | | | | performed at [facility], [address] | | LABORATORY | | | | [address] | | | | | | [place] [address] | | | | + + + + + + + + | Specimen | + + | Blood | + + + + + + + | Performing | Address | City/State/Zipcode | Phone Number | | Organization | | | | + + + + + | [facility] | [address] | [place] [address] | [phone] | + + + + + Culture, [...] Special | Testing performed at | | [facility] | | | Requests | [address] | | LABORATORY | | | | [place] [address] | | | | + + + + + + | RESULT | NO GROWTH 6 DAYS | | [facility] | | | | | | LABORATORY | | + + + + + + | RESULT | Testing performed at | | [facility] | | | | TCL, [address] [facility] | | LABORATORY | | | | [place] | | | | | | [id number]: Testing | | | | | | performed at [facility], [address] | | | | | | [place] | | | | | | [address] | | | | + + + + + + + + | Specimen | + + | Blood - Peripheral | | blood specimen | | (specimen) | + + + + + + + | Performing | Address | City/State/Zipcode | Phone Number | | Organization | | | | + + + + + | [facility] | [address] | [place] [address] | [phone] | + + + + + CBC [...] [facility] | | | | performed at [facility], [address] | | LABORATORY | | | | [address], | | | | | | [place] [address] | | | | + + + + + + + + | Specimen | + + | Blood | + + + + + + + | Performing | Address | City/State/Zipcode | Phone Number | | Organization | | | | + + + + + | [facility] | [address] | [place] [address] | [phone] | + + + + + Basic [...] 7 (L)Comment: GFR <60: | >60 | [facility] | | | GFR | [...] | | | | | | MDRD IDNE traceable | | | | | | equation.Testing | | | | | | performed at [facility], [address] | | | | | | [facility], | | | | | | [place] [address] | | | | + + + + + + + + | Specimen | + + | Blood | + + + + + + + | Performing | Address | City/State/Zipcode | Phone Number | | Organization | | | | + + + + + | [facility] | [address] | [place] [address] | [phone] | + + + + + Basic [...] | | | | | performed at [facility];[address] | | | | | | [address] [facility];[place], [place] | | | | | | [address] | | | | + + + + + + + + | Specimen | + + | Blood | + + + + + + + | Performing | Address | City/State/Zipcode | Phone Number | | Organization | | | | + + + + + | [facility] | [address] | [place] [address] | [phone] | + + + + + Influenza [...] | | | | | performed at [facility];[address] | | | | | | [address];[place], [place] | | | | | | [address] | | | | + + + + + + + + | Specimen | + + | | + + + + + + + | Performing | Address | City/State/Zipcode | Phone Number | | Organization | | | | + + + + + | [facility] | [address] | [place] [address] | [phone] | + + + + + FLU SWAB COLLECTION (12/11/2018 3:46 PM PDT) + + + + + + | Component | Value | Ref Range | Performed | Pathologist | | | | | At | Signature | + + + + + + | Collection | SPECIMEN RECEIVED IN | | [facility] | | | | LABComment: Testing | | LABORATORY | | | | performed at [facility];[address] | | | | | | [address];[place] | | | | | | [address] | | | | + + + + + + + + | Specimen | + + | Tissue - Entire | | nasopharynx (body | | structure) | + + + + + + + | Performing | Address | City/State/Zipcode | Phone Number | | Organization | | | | + + + + + | [facility] | [address] | [place] [address] | [phone] | + + + + + POC Glucose (12/11/2018 8:31 AM PDT) + + + + + + | Component | Value | Ref Range | Performed | Pathologist | | | | | At | Signature | + + + + + + | Glucose, | 84Comment: Testing | 65 - 99 mg/dL | [facility] | | | POC | performed at [facility];[address] | | LABORATORY | | | [address];[place], [place] | | | | | | [address] | | | | + + + + + + + + | Specimen | + + | | + + + + + + + | Performing | Address | City/State/Zipcode | Phone Number | | Organization | | | | + + + + + | [facility] | [address] | [place] [address] | [phone] | + + + + + ECG [...] | | | | | ONLY, -COMPUTER ([id number]), | | | | | | avid editor Daniela Luciano | | | | [...] [facility] | | | | performed at [facility];[address] | | LABORATORY | | | | [address];[place] | | | | | | [address] | | | | + + + + + + + + | Specimen | + + | Blood | + + + + + + + | Performing | Address | City/State/Zipcode | Phone Number | | Organization | | | | + + + + + | [facility] | [address] | [place] [address] | [phone] | + + + + + Basic Metabolic Panel (12/11/2018 6:15 AM PDT) + + + + + + | Component | Value | Ref Range | Performed | Pathologist | | | | | At | Signature | + + + + + + | Na | 136 | 135 - 145 | [facility] | | | | | mmol/L | LABORATORY | | + + + + + + | K | 6.8 ()Comment: RESULT | 3.5 - 4.9 | [facility] | | | | READ BACK BY:ABRIL HUERTA | mmol/L | LABORATORY | | | | M ON [id number] 2 0796 BY | | | | | | [...] | | | | | performed at [facility];[address] | | | | | | [address] [facility];[place], [place] | | | | | | [address] | | | | + + + + + + + + | Specimen | + + | Blood | + + + + + + + | Performing | Address | City/State/Zipcode | Phone Number | | Organization | | | | + + + + + | [facility] | [address] | [place] [address] | [phone] | + + + + + Culture, [...] Special | Testing performed at | | [facility] | | | Requests | [facility];[address] | | LABORATORY | | | | [place] [address] | | | | + + + + + + | RESULT | NO GROWTH 6 DAYS | | [facility] | | | | | | LABORATORY | | + + + + + + | RESULT | Testing performed at | | [facility] | | | | [facility], [address] [facility] | | LABORATORY | | | | [place] | | | | | | [address]Mtlgbsw: Testing | | | | | | performed at [facility], [address] | | | | | | [place] | | | | | | [address] | | | | + + + + + + + + | Specimen | + + | Blood - Peripheral | | blood specimen | | (specimen) | + + + + + + + | Performing | Address | City/State/Zipcode | Phone Number | | Organization | | | | + + + + + | [facility] | [address] | [place] [address] | [phone] | + + + + + CT [...] LABORATORY | | | | performed at [facility];[address] | | | | | [address];[place] | | | | | | [address] | | | | + + + + + + + + | Specimen | + + | | + + + + + + + | Performing | Address | City/State/Zipcode | Phone Number | | Organization | | | | + + + + + | [facility] | [address] | [place] [address] | [phone] | + + + + + Lactic Acid (12/11/2018 1:04 AM PDT) + + + + + + | Component | Value | Ref Range | Performed | Pathologist | | | | | At | Signature | + + + + + + | Lactate, | 1.2Comment: Testing | 0.4 - 2.0 | [facility] | | | Serum | performed at [facility];[address] | mmol/L | LABORATORY | | | | [address];[place] | | | | | | [address] | | | | + + + + + + + + | Specimen | + + | Blood | + + + + + + + | Performing | Address | City/State/Zipcode | Phone Number | | Organization | | | | + + + + + | [facility] | [address] | [place] [address] | [phone] | + + + + + Lactic Acid (12/10/2018 11:44 PM PDT) + + + + + + | Component | Value | Ref Range | Performed | Pathologist | | | | | At | Signature | + + + + + + | Lactate, | 0.8Comment: Testing | 0.4 - 2.0 | [facility] | | | Serum | performed at [facility];[address] | mmol/L | LABORATORY | | | | [address];[place] | | | | | | [address] | | | | + + + + + + + + | Specimen | + + | Blood | + + + + + + + | Performing | Address | City/State/Zipcode | Phone Number | | Organization | | | | + + + + + | [facility] | [address] | [place] [address] | [phone] | + + + + + Culture, [...] | | | BY:Brigitte CARTER 6RDerick @ 5115 | | | | | | 12/11/18 [...] RESULT | Testing performed at | | [facility] | | | | [facility], [address] | | LABORATORY | | | | [place], [place] | | | | | | [address]Zybyycm: Testing | | | | | | performed at [facility], [address] | | | | | [address], | | | | | | [place] [address] | | | | + + + + + + + + | Specimen | + + | Blood - Swab of line | | insertion site | | (specimen) | + + + + + + + | Performing | Address | City/State/Zipcode | Phone Number | | Organization | | | | + + + + + | [facility] | [address] | [place] [address] | [phone] | + + + + + XR [...] at | | | | | | [facility];[address] [place] [address] | | | | | | [facility];[place] [address] | | | | + + + + + + + + | Specimen | + + | Blood | + + + + + + + | Performing | Address | City/State/Zipcode | Phone Number | | Organization | | | | + + + + + | [facility] | [address] | [place] [address] | [phone] | + + + + + Protime INR (12/10/2018 11:02 PM PDT) + + + + + + | Component | Value | Ref Range | Performed | Pathologist | | | | | At | Signature | + + + + + + | INR | 1.3Comment: REFERENCE | | [facility] | | | | RANGE:0.9 - 1.2 [...] | | | | | performed at [facility];[address] | | | [address];[place] | | | | | | [address] | | | | + + + + + + + + | Specimen | + + | Blood | + + + + + + + | Performing | Address | City/State/Zipcode | Phone Number | | Organization | | | | + + + + + | [facility] | [address] | [place] [address] | [phone] | + + + + + CBC [...] | | | | | | at [facility];[address] | [address];[place] [address] | | | | | |NORMAL PLT MORPH | | | | | |Testing performed at [facility];[address];[place] [address] | | | | | | | | | | + + + + + + + + | Specimen | + + | Blood | + + + + + + + | Performing | Address | City/State/Zipcode | Phone Number | | Organization | | | | + + + + + | [facility] | [address] | [place] [address] | [phone] | + + + + + Phosphorus (12/10/2018 11:02 PM PDT) + + + + + + | Component | Value | Ref Range | Performed | Pathologist | | | | | At | Signature | + + + + + + | Phosphorus | 8.9 (H)Comment: Testing | 2.3 - 4.8 mg/dL | [facility] | | | | performed at [facility];[address] | | LABORATORY | | | | [address] [place];[place], [place] | | | | | | [address] | | | | + + + + + + + + | Specimen | + + | Blood | + + + + + + + | Performing | Address | City/State/Zipcode | Phone Number | | Organization | | | | + + + + + | [facility] | [address] | [place] [address] | [phone] | + + + + + Magnesium (12/10/2018 11:02 PM PDT) + + + + + + | Component | Value | Ref Range | Performed | Pathologist | | | | | At | Signature | + + + + + + | Magnesium | 2.2Comment: Testing | 1.7 - 2.4 mg/dL | [facility] | | | | performed at [facility];[address] | | LABORATORY | | | | [address];[place], [place] | | | | | | [address] | | | | + + + + + + + + | Specimen | + + | Blood | + + + + + + + | Performing | Address | City/State/Zipcode | Phone Number | | Organization | | | | + + + + + | [facility] | [address] | [place] [address] | [phone] | + + + + + Comprehensive [...] 22 | 10 - 65 U/L | [facility] | | | | | | LABORATORY | | + + + + + + | Estimated | 3 (L)Comment: GFR <60: | >60 | [facility] | | | GFR | [...] | | | | | performed at [facility] | | | | | | [facility];[place], [place] | | | | | | [address] | | | | + + + + + + + + | Specimen | + + | Blood | + + + + + + + | Performing | Address | City/State/Zipcode | Phone Number | | Organization | | | | + + + + + | [facility] | [address] | [place] [address] | [phone] | + + + + + ECG [...] | | | | | ONLY, -COMPUTER ([id number]), | | | | | | avid editor Daniela Luciano | | | | [...]
--- OUTSIDE RECORDS SUMMARY | ~2019-02-17 | XMS | Encounter Summary ---
Demographics + + + | Address | [address] | | | [place] [address] | + + + | Home Phone [...] | | | | | [place] [address] | | + + + + + | Thania Mallory | ECON | [address] | | | | | [place] [address] | | + + + + + | Deidra Weldon | ECON | [address] | | | | | [place] | | | | | [address] | | + + + + + Care Team Providers + +------+ + | Care Title Coordinator Name | Role | Phone | + +------+ + | Shahid Camargo MD | PCP | | + +------+ + Encounter Details +--------+ + + + + | Date | Type | Department | Care Team | Description | +--------+ + + + + | 12/20/ | Hospital | Radiology at [facility] | | | | 2012 | Encounter | [address] | | | | | | Mailcode: [address] | | | | | | [place] | | | | | | [place], [place] | | | | | | [address] | | | | | | [phone] | | | +--------+ + + + [...] Denise | | | | | | [place], [place] | | | | | | [address] | | | | | | [phone] | | | | | | | [...] | e | 9:27 AM | MEDICARE 8578 | procedure are in the | | [...] | | | | signed / SHARLENE HUBERI | | | | | | 12/20/2012 [...]
--- OUTSIDE RECORDS SUMMARY | ~2019-02-17 | XMS | Encounter Summary ---
Demographics + + + | Address | [address] | | | [place] [address] | + + + | Home Phone [...] | | | | | [place] [address] | | + + + + + | Thania Mallory | ECON | [address] | | | | | [place] [address] | | + + + + + | Deidra Weldon | ECON | [address] | | | | | [place] | | | | | [address] | | + + + + + Care Team Providers + +------+ + | Care Trial Manager Name | Role | Phone | [...] | purpura | [address] | [facility] [address] | | | | | ([facility]) [facility] | [address] | | | | | (Amelie | [address] | Mailcode: | | | | | nlein | [place], [place] | [place]S | | | | | purpura) | [address] | [address] | | | | | nephritis | Phone: | [place], [place] | | | | | ([facility]) | [phone] | [address] | | | | | Hemodialysis | Fax: | Phone: | | | | | status | [phone] | [phone] | | | | | ([facility]) | | Fax: | | | | | Chronic | | [phone] | | | | | kidney | | | | | | | disease, | | | | | | | stage V | | | | | | | ([facility]) | | | | | | | [...] | | 2014 | Encounter | at [facility] [address] | | | | | | [address] Mailcode: | | | | | | [id number] | | | | | | [place], [place] | | | | | | [address] | | | | | | [phone] | | | +--------+ + + + [...] Denise | | | | | | [place], [place] | | | | | | [address] | | | | | | [phone] | | | | | | | [...] | e | 1:18 PM | MEDICARE 9652 [facility] | procedure are in the | [...] 2:35 PM PST Echocardiography Laboratory | | [address] | | [place] [address] | | ; | | [id number] | | | | Transthoracic Echocardiogram Report | | | | | | NAME: DARA WELDON Study Date: 01/20/2015 1:18:29 PM | | Order #: [id number] ACC #: [id number] | | | | | | : [...] on 01/20/2015 at 2:35:17 PM | | Tile Setter Supervisor: YARITZA KLINE RDEDNA | | | | | | cc: | | | | | | Modes utilized | | TTE 76292; Spectral Doppler 43375; Color flow Doppler 36154; | | | | | | | | Final | + + + + + + + | Performing | Address | City/State/Zipcode | Phone Number | | Organization | | | | + + + + + | [facility] | [address] | [place], [place] | | | CARDIOLOGY | [address] | [address] | | + + + + + [...]
--- OUTSIDE RECORDS SUMMARY | ~2019-02-17 | XMS | Encounter Summary ---
Demographics + + + | Address | [address] | | | [place] [address] | + + + | Home Phone [...] | | | | | [place] [address] | | + + + + + | Thania Mallory | ECON | [address] | | | | | [place] [address] | | + + + + + | Deidra Weldon | ECON | [address] | | | | | [place] | | | | | [address] | | + + + + + Care Team Providers + +------+ + | Care Keycase Assembler Name | Role | Phone | [...] Denise | | | | | | [place], [place] | | | | | | [address] | | | | | | [phone] | | | | | | | | +--------+ + + + + documented as of this encounter Visit Diagnoses Not on filedocumented in this encounter"
--- OUTSIDE RECORDS SUMMARY | ~2019-02-17 | XMS | Encounter Summary ---
Demographics + + + | Address | [address] | | | [place] [address] | + + + | Home Phone [...] + + | Author | [facility] | | | and [place] | + + + | Organization | [facility] | [...] Team Providers + +------+ + | Care Casting Room Helper Name | Role | Phone | + +------+ + | Jonathan Alonso MD | PCP | | + +------+ + Encounter Details +--------+ + + + + | Date | Type | Department | Care Team | Description | +--------+ + + + + | 10/17/ | Hospital | [facility] | Nikita, | ESRD (end stage | | 2019 - | Encounter | [facility] | MD Naresh [address] | renal disease) | | | | CARE FLOOR [address] | ([facility]); Dilated | | 10/22/ | [address] | [place] [address] | cardiomyopathy | | 2019 | | [place], [place] | [phone] | ([facility]); | | | | [address] | | Non-cardiogenic | | | | [phone] | Gerber Pearson MD | pulmonary edema; | | | | | [address] | Anemia in ESRD | | | | | [place] [address] | (end-stage renal | | | | | [phone] | disease) ([facility]); | | | | | [...] failure | | | | | | ([facility]); At high risk | | [...] might be different fr om the original. [facility] Service: Hospitalist Physician Discharge Summary Patient [...] is to follow up with her regular human relations professor, Dr. Hurtado. DISCHARGE DIAGNOSES: 1. End-stage renal [...] Left; Surgeon: Blake Chavarria MD ; Location: [facility] MAIN OR AV FISTULA REPAIR Left 03/07/2014 Procedure: AV FISTULA - GRAFT REPAIR/REVISION; Surgeon: Rik Simon MD; Location: [facility] OR; Service: Vascular; Laterality: Left; biopsy of kidney age 10 DIALYSIS FISTULA CREATION 04/08/2014 Procedure: DIALYSIS CATHETER - INSERTION; Surgeon: Rik Simon MD; Location: [facility] OR ; Service: Vascular; Laterality: N/A; tunneled catheter.br hemodialysis catheter KIDNEY BIOPSY Left 2003 OTHER SURGICAL HISTORY LAPAROSCOPIC PERITONEAL DIALYSIS CATHETER INSERTION - x2 OTHER SURGICAL HISTORY Right 07/2013 LAPAROSCOPIC PERITONEAL DIALYSIS CATHETER INSERTION - current dialysis access MWF dialysis OTHER SURGICAL HISTORY Left 06/24/2014 SUPERFICIALIZATION OF AV FISTULA - Procedure: AV FISTULA - SUPERFICIALIZATION; Surgeon: Emanuel Simon MD; Location: [facility] MAIN OR; Service: Vascular; Laterality: Left; OTHER SURGICAL HISTORY Left 04/08/2014 AV FISTULA PLACEMENT - Procedure: AV FISTULA; Surgeon: Rik Simon MD; Location: [facility] OR; Service: Vascular; Laterality: Left; cephalic OTHER SURGICAL HISTORY Left 03/07/2014 DECLOT GRAFT - Procedure: GRAFT - DECLOT; Surgeon: Rik Simon MD; Location: [facility] OR ; Service: Vascular; Laterality: Left; peritoneal [...] have: Continued coughing Fever Date Last Reviewed: 02/04/201619993481-3429 [employer] [place] [address], [place] [address]. All righ ts reserved. This information is [...] by your healthcare provider Date Last Reviewed: 12/05/201519994566-3220 [employer]. [address] [place] [address], [place] [address]. All righ ts reserved. This information is [...] | | | | | renal disease) ([facility]) | protocol | | | [...] + + +---------+ + + | B Lqilrep-P-Yckot | Take 1 tablet by | | [...] Verbal and written instructions provided to amber nt, all questions addressed. Rx and all belongings [...] I have discussed the case with the NUT GRADER. I agree with his findings & documentation. [...] changes. End of shift audit com plete. Jorge Lomeli RN - 10/21/2018 4:46 PM PDTPt had an uneventful shift. Medicated for pain with PRN dilau did. Pt medicated for nausea with PRN Zofran and Phenergan. Pt to stay one more noc, then swanson ve dialysis in morning before discharge. VSS. Status otherwise unchanged. Chart audit comple te. Antonio Carrasco MD - 10/21/2018 3:00 PM PDT [facility] Service: NEPHROLOGY Progress Note Dara Weldon 23 y.o. [id number] female Jonathan Alonso MD Hospital Day: [...] - INSERTION; Surgeon: Rik Simon MD; Location: [facility] MAIN OR ; Service: Vascular; Laterality: N/A; tunneled catheter.br hemodialysis catheter KIDNEY BIOPSY Left 2003 OTHER SURGICAL HISTORY LAPAROSCOPIC PERITONEAL DIALYSIS CATHETER INSERTION - x2 OTHER SURGICAL HISTORY Right 07/2013 LAPAROSCOPIC PERITONEAL DIALYSIS CATHETER INSERTION - current dialysis access MWF dialysis OTHER SURGICAL HISTORY Left 06/24/2014 SUPERFICIALIZATION OF AV FISTULA - Procedure: AV FISTULA - SUPERFICIALIZATION; Surgeon: Emanuel Simon MD; Location: [facility] MAIN OR; Service: Vascular; Laterality: Left; OTHER SURGICAL HISTORY Left 04/08/2014 AV FISTULA PLACEMENT - Procedure: AV FISTULA; Surgeon: Rik Simon MD; Location: [facility] OR; Service: Vascular; Laterality: Left; cephalic OTHER SURGICAL HISTORY Left 03/07/2014 DECLOT GRAFT - Procedure: GRAFT - DECLOT; Surgeon: Rik Simon MD; Location: [facility] MAIN OR ; Service: Vascular; [...] file Social History Narrative She lives in [facility]. She does not work. She [...] MR, severe TR.severe pulmonary hyperten arturo Chest r-slf-bpkklisrhzrr with pulmonary edema and large right pleural [...] earlier and charting completed later Dictation software, Ovalis, used which may contain error for similar sounding words even af ter review. Personal communication requested for any clarification. Portions of my notes may have been carried over for continuity of care.Electronically ananth d by Antonio Benjamin MD at 10/21/2018 3:11 PM Gerber Fernandez MD - 10/21/2018 7:18 AM PD T [facility] Adult Hospitalist Progress Note Hospital Day: [...] improved, currently on 2 L oxygen, marty nnsaad next cycle of hemodialysis Has been afebrile, [...] BUN 90 on admission -History of a Woodson Schnlein purpura -Last hemodialysis approximately 2 weeks [...] liters. End of shift review complete. Trent Jovel RN IAGerber PearsonCamille D - 10/20/2018 9:09 AM PDT [facility] Adult Hospitalist Progress Note Hospital Day: [...] BUN 90 on admission -History of a Woodson Schnlein purpura -Last hemodialysis approximately 2 weeks [...] in this e ncounter Plan of Treatment +--------+---------+ + + + | Date | Type | Specialty | Care Team | Description | +--------+---------+ + + + | 03/05/ | Office | Pulmonology | Denny Alexander | | | 2018 | Visit | | Deny Briggs MD [address] | | | | | [address] | | | | | | [place] [address] | | | | | | [phone] | | | | | | | [...] MPV | 10.4Comment: Testing | fl | ANDREY | | | | performed at [facility], [address] | | LABORATORY | | | | [place] [place], | | | | | | [place] [address] | | | | + + + + + + + + | Specimen | + + | Blood | + + + + + + + | Performing | Address | City/State/Zipcode | Phone Number | | Organization | | | | + + + + + | [facility] | [address] | [place] [address] | [phone] | + + + + + Basic [...] | | | | | performed at [facility], [address] | | | | | | [facility], | | | | | | [place] [address] | | | | + + + + + + + + | Specimen | + + | Blood - Right upper | | arm structure (body | | structure) | + + + + + + + | Performing | Address | City/State/Zipcode | Phone Number | | Organization | | | | + + + + + | [facility] | [address] | [place] [address] | [phone] | + + + + + Basic [...] | | | | | performed at [facility], [address] | | | | | | [facility], | | | | | | [place] [address] | | | | + + + + + + + + | Specimen | + + | Blood - Right upper | | arm structure (body | | structure) | + + + + + + + | Performing | Address | City/State/Zipcode | Phone Number | | Organization | | | | + + + + + | [facility] | [address] | [place] [address] | [phone] | + + + + + Basic [...] | | | | | performed at [facility] | | | | | | [facility];[place], [place] | | | | | | [address] | | | | + + + + + + + + | Specimen | + + | Blood - Right upper | | arm structure (body | | structure) | + + + + + + + | Performing | Address | City/State/Zipcode | Phone Number | | Organization | | | | + + + + + | [facility] | [address] | [place] [address] | [phone] | + + + + + documented in this encounter Visit Diagnoses + + | Diagnosis | + + | Non-cardiogenic pulmonary edema - Primary Pulmonary congestion and hypostasis | + + | ESRD (end stage renal disease) ([facility]) End stage renal disease | + + | Dilated cardiomyopathy ([facility]) Other primary cardiomyopathies | + + | Anemia in ESRD (end-stage renal disease) ([facility]) Anemia in chronic kidney disease [...] Shortness of | | | Breath, Starting Mon10/19/18 at | | | 1122 | | + +---+ | | | + +---+ + +-------+ +-------+---+---+ | clopidogrel (PLAVIX) tablet 75 | Given | 10/23/19 | 75 mg | | | | mg 75 mg, Oral, DAILY, First | | 19 8:13 | | | | | dose on Mon10/20/18 at 0900 | | AM PDT | [...] | | | for platelets less than [address], | | + +---+ | | | + +---+ + +-------+ +--------+---+---+ | HYDROmorphone (DILAUDID) | Given | 10/22/19 | 0.5 mg | | | | injection 0.5 mg 0.5 mg, | | 19 11:54 | | | | | Intravenous, EVERY 4 HOURS PRN, | | PM PDT | | | | | Pain, Starting 10/19/18 at | | | | | | [...] PDT | | | | | Starting Mon10/19/18 at 1116, | | | | | [...]
--- OUTSIDE RECORDS SUMMARY | ~2019-02-17 | XMS | Encounter Summary ---
Demographics + + + | Address | [address] | | | [place] [address] | + + + | Home Phone [...] + | Author | [facility] | | | and [place] | + + + | Organization | [facility] | | | and Josephana [...] Team Providers + +------+ + | Care Shower Doors And Panels Fabricator Name | Role | Phone | [...] | | | | [address] | [place], [place] | [place], [place] | | | | | stage renal | [address] | [address] Phone: | | | | | disease | Phone: | [phone] | | | | | ([facility]) | [phone] | Fax: | | | | | Infection | Fax: | [phone] | | | | | and | [phone] | | | | | | inflammatory | | | | | | | reaction | | | | | | | due to | | | | | | | peritoneal | | | | | | | dialysis | | | | | | | catheter | | | | | | | Procedures | | | | | | | IN OFFICE | | | | | | [...] M, DO [address] | renal disease) ([facility]) | | | | [address] | [place], [address] | (Primary Dx); | | | | [place], [place] | [place], [place] | Anemia in ESRD | | | | [address] | [address] | (end-stage renal | | | | [phone] | | disease) ([facility]) [...] the 04/28/14 encounter (Off-Site Visit) with Camille Capm DO Medication Sig Dispense Refill cholecalciferol (VITAMIN [...] recheck her Hb in one week. CC: [place] Fina Joy MD, [facility], [facility] Blake Chavarria MD, FACS documented in [...] [address] | | | | | | [place] [address] | | | | | | [phone] | | | | | | | [...]
--- OUTSIDE RECORDS SUMMARY | ~2019-02-17 | XMS | Encounter Summary ---
Demographics + + + | Address | [address] | | | [place] [address] | + + + | Home Phone [...] | | | | | [place] [address] | | + + + + + | Thania Mallory | ECON | [address] | | | | | [place] [address] | | + + + + + | Deidra Weldon | ECON | [address] | | | | | [place] | | | | | [address] | | + + + + + Care Team Providers + +------+ + | Care Foreign Collection Clerk Name | Role | Phone | [...] | | [facility] | [facility] | | | | | [address] [place], [place] | [place], [place] | | | | | [address] | [address] | | | | | [phone] | | | +--------+ + + + [...] Denise | | | | | | [place], [place] | | | | | | [address] | | | | | | [phone] | | | | | | | | +--------+ + + + + documented as of this encounter Visit Diagnoses + + | Diagnosis | + + | 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
--- OUTSIDE RECORDS SUMMARY | ~2019-02-17 | XMS | Encounter Summary ---
Demographics + + + | Address | [address] | | | [place] [address] | + + + | Home Phone [...] | [facility] | | | and [place]ana | + + + | Organization | [facility] [...] Team Providers + +------+ + | Care Electroplater Name | Role | Phone | + [...] | | | | [address] | [place], [place] | [place], [place] | | | | | stage renal | [address] | [address] Phone: | | | | | disease | Phone: | [phone] | | | | | ([facility]) | [phone] | Fax: | | | | | Infection | Fax: | [phone] | | | | | and | [phone] | | | | | | inflammatory [...] + + + + | 10/27/ | Off-Site | [facility] [place] | Jorje Camp | ESRD (end stage | | 2015 | Visit | NEPHROLOGY [address] | M, DO [address] | renal disease) ([facility]) | | | | [address] | [place] | (Primary Dx) | | | | [place], [place] | [place], [place] | | | | | [address] | [address] | | | | | [phone] | | | +--------+ + + + [...] + + + | Blood Pressure | 107/77 | 10/27/2014 3:51 PM | | | | | PDT | | + + + + + | Pulse | - | - | | + + + + + | Temperature | 36 C (96.8 F) | 10/27/2014 3:51 PM | | | | | PDT [...] in this encounter Progress Notes Jorje Camp, - 10/27/2014 3:54 PM PDT Subjective: DIALYSIS NOTE Patient ID: Dara Weldon is a 19 y.o. female. 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 She also has anemia secondary to CKD, SHPTH, centripetal obesity . After a detailed discussion about her suboptimal labs last 2 weeks, she appears to have imp roved her PO4 control somewhat. She still has larger than recommended inter-dialytic wt. g ains. She does attend all of her txs as prescribed. Today, she requests an "US of her kidneys, due to my back hurting." There is no H/O fall, straining while lifting, or radicular symptoms. She does ambulate here in clinic. No loss of bladder or bowel control. She states that she does not get relief with tylenol and Ibu profen, would actually like something stronger. Outpatient Prescriptions Marked as Taking for the 10/27/14 encounter (Off-Site Visit) with Camille Camp, Medication Sig Dispense Refill albuterol 90 mcg/puff inhaler Inhale 2 puffs into the lungs every 6 hours as needed for Wheezing. 1 Inhaler 11 cinacalcet (SENSIPAR) 90 MG tablet Take 1 tablet by mouth Daily (with dinner). 90 table t 4 doxercalciferol (HECTOROL) 2 mcg/mL injection Inject 1 mL into the vein Three times a w [place]. epoetin jenna (EPOGEN, PROCRIT) 10,000 units/mL injection Inject 1,000 Units into the ve in Every 30 days. iron sucrose (VENOFER) 20 mg/mL injection Inject [...] tapes Morphine Itching and Rash Objective: BP 107/77 mmHg | Temp(Src) 36 C (96.8 F) EDW 100 kg Physical Exam Heart: Regular rate and rhythm with no S3, S4, murmur or rub. Lungs: CTA bilaterally. No rales or wheezes. Abdomen: Soft, obese, nontender, normoactive bowel sounds, no CVA tenderness.. Extremities: No clubbing, cyanosis, or edema. QB 400 at left arm AVF. LAB: BUN 52, Cr 10.2, K+ 3.7, HCO3 22, Ca++ 9.1, PO4 6.0, PTH 615, Alb 3.7, Hb 12.5, TSat. = 47 %, Ferritin 413, spKT/V = 2.01. Assessment: 1. ESRD--she appears well dialyzed clinically on the current Rx. 2. Hypertension--good control at the current dry weight. 3. SHPTH--I congratulated Dara that her PO4 control appears improved this month, and rina s her PTH is improving. I encouraged her to continue this. 4. Nutrition--her Salb is improved, also which is positive. 5. Transplantation--I now concur that she would be at risk for possible graft loss due to compliance and psychosocial reasons. Although, she has shown modest improvement in the last 21 days. 6. Anemia-- EPO is now on hold , due to Hb > 11.0 g/dl. Her iron stores appear adequate. 7. low back pain--I told Dara that my gut feeling is that this is likely not her kidneys and that renal US would not be helpful. She is adamant about an alternate analgesic, therefore, I told her to try heat, OTC Daniel Denny , and would give her only tramadol 50 mg, Q12H, PRN, #30, with no refill. I did discuss vilma t with her young age, that most likely this is musculoskeletal and that she should only take the tramadol very short term, i.e.. approximately 2 weeks. If not better after that , she should seek out her PCP, and obtain some plain film of her back for starters. Plan: 1. Will hold EPO for now, while checking Hb weekly. 2. I encouraged her that her labs do appear to be improving, and that she should keep up t his effort chcf. 3. Heat, Daniel Denny, OTC, and tramadol, short term for her back. 4. Will recheck her in 1 week. CC: Sweetser Fina Joy MD, [facility] Transplant Clinic, [facility] signed by Jorje Camp DO at 10/27/2014 4:32 PM PDTdocumented in this encount er Plan [...] [address] | | | | | | [place] [address] | | | | | | [phone] | | | | | | | | +--------+---------+ + + + documented as of this encounter Visit Diagnoses + + | Diagnosis | + + | ESRD (end stage renal disease) (HCC) - Primary End stage renal disease | + + documented in this encounter
--- OUTSIDE RECORDS SUMMARY | ~2019-02-17 | XMS | Encounter Summary ---
Demographics + + + | Address | [address] | | | [place] [address] | + + + | Home Phone [...] | [facility] | | | and [place] | + + + | Organization | [facility] | | | and [place] | + + + | Address | Unknown | + + + | Phone | Unavailable | + + + Support + + +---------+ + | Name | Relationship | Address | Phone | + + +---------+ + | Thania Mallory | ECON | Unknown | | + + +---------+ + | aSundra Mallory | ECON | Unknown | | + + +---------+ + Care Team Providers + +------+ + | Care Supervisor Cutting And Sewing Room Name | Role | Phone | + +------+ + PCP | Unavailable | + +------+ + Encounter Details +--------+ + + + + | Date | Type | Department | Care Team | Description | +--------+ + + + + | 02/12/ | Hospital | [facility] | Nereida Roberson | | | 2008 | Encounter | HOSPITAL EMERGENCY | MD [address] | | | | | [address] [place] | | | [address] [place], [place] | [place] [address] | | | | | [address] | [phone] | | | | | [phone] | | | +--------+ + + + [...] [address] | | | | | | [place] [address] | | | | | | [phone] | | | | | | | | +--------+---------+ + + + documented as of this encounter Visit Diagnoses Not on filedocumented in this encounter"
--- OUTSIDE RECORDS SUMMARY | ~2019-02-17 | XMS | Encounter Summary ---
Demographics + + + | Address | [address] | | | [place] [address] | + + + | Home Phone [...] | [facility] | | | and [place] | + + + | Organization | [facility] | | | and [...] Team Providers + +------+ + | Care Site Director Name | Role | Phone | + +------+ + PCP | Unavailable | + +------+ + Encounter Details +--------+ + + + + | Date | Type | Department | Care Team | Description | +--------+ + + + + | 07/04/ | Off-Site | [facility] | Jorje Camp | ESRD (end stage | | 2018 | Visit | NEPHROLOGY [address] | M, DO [address] | renal disease) ([facility]) | | | | [address] | [place] | (Primary Dx) | | | | [place], [place] | [place], [place] | | | | | [address] | [address] | | | | | [phone] | | | +--------+ + + + [...] + + + | Blood Pressure | 136/89 | 07/03/2017 8:19 PM | | | | | PDT | | + + + + + | Pulse | - | - | | + + + + + | Temperature | 36.5 C (97.7 F) | 07/03/2017 8:19 PM | | | | | PDT [...] encounter Progress Notes Jorje Camp DO - 07/03/2017 10:30 AM PDT Subjective: DIALYSIS NOTE Patient ID: Dara Weldon is a 22 y.o. female. 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 She also has anemia secondary to CKD, SHPTH, centripetal obesi ty. She has persisted unfortunately, in her pattern of skipped or abbreviated treatments. She f requently dialyzes only 1 time per week, AMA, from review of documents of Clinic Attendance here at [facility], with the guide, Elisabeth Quijano RN. Outpatient Prescriptions Marked as Taking for the 07/03/17 encounter (Appointment) with Shravan Camp DO Medication Sig Dispense Refill albuterol 90 mcg/puff inhaler Inhale 2 puffs into the lungs every 6 hours as needed for Wheezing. 1 Inhaler 11 cinacalcet (SENSIPAR) 90 MG tablet Take 1 tablet by mouth Daily (with dinner). 30 table t 11 clopidogrel (PLAVIX) 75 mg tablet Take 1 tablet by mouth Daily. 30 tablet 11 doxercalciferol (HECTOROL) 2 mcg/mL injection Inject 1.5 mcg into the vein Three times a week. Per dialysis clinic protocol epoetin jenna (EPOGEN,PROCRIT) 3,000 units/mL injection Inject 12,000 Units under the sk in Three times [...] Itching and Rash Lisinopril cough Objective: BP 136/89 | Temp 36.5 C (97.7 F) EDW 76.5 kg Physical Exam Heart: Regular rate and rhythm with no S3, S4, murmur or rub. Lungs: CTA bilaterally. No rales or wheezes. Abdomen: Soft, obese, nontender, normoactive bowel sounds.. Extremities: No clubbing, cyanosis, or edema. LAB: BUN 118, Cr 14.4, K+ 5.3, HCO3 24, Ca++ 10.2, PO4 8.1, PTH 1478, Alb 3.5, Hb 9.3, TSat not listed, Ferritin not listed, spKT/V = 1.62. Assessment: 1. ESRD-- she is chronically under dialyzed due to missed or partial treatments. She is v martina clearly A&Ox3, and has been warned of the consequences. 2. Hypertension-- will Rx her with losartan, verbal counseling, and UF as she will allow , by attending her txs. 3. SHPTH-- poorly controlled. She does not appear to have any insight into her CKD or he alth management , in general. 4. Nutrition-- unclear what her diet consists of . 6. Anemia-- she under dose on EPO by her repeated truancy from her scheduled txs and lac k of acces to EPO. 7. Centripetal obesity-- under dialysis on Dara 's part, not the Clinic, has led to megan e wt. loss and decreased appetite? 8. 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 9. Transplantation--not at all a candidate and at high risk for graft loss due to her stevie turity and lack of insight into her CKD. 10. Self-destructive behavior-- my gut feeling is that her self destructive behavior is re aching the point where she needs a Behavioral Contract, more realistically, an Inpatient Psych. evaluation for her lack of motivation to thri ve or carry on any normal activities. She does not admit to considering any plans for a vocation, or any form of education. 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 Plan: 1. I counseled her at length that she is at risk for , AMI, ASCVD, stroke, calciphyla xis, and fx's due to chronic missed or abbreviated treatments. 2. I think that she should be concurrently seeing a Counselor or Psychiatrist while atten ding outpatient Dialysis. She verbally refuses a Mental Health Professional for counseling in any form, today. She is clearly A&O x3, at this point. 3. The [facility] Staff have given her every opportunity to succeed here at the Clinic in [place]. 4. Will recheck her in 2 weeks. : [place] Fina documented in thi s encounter Plan [...] [address] | | | | | | [place] [address] | | | | | | [phone] | | | | | | | | +--------+---------+ + + + documented as of this encounter Visit Diagnoses + + | Diagnosis | + + | ESRD (end stage renal disease) (HCC) - Primary End stage renal disease | + + documented in this encounter"
--- OUTSIDE RECORDS SUMMARY | ~2019-02-17 | XMS | Encounter Summary ---
Demographics + + + | Address | [address] | | | [place] [address] | + + + | Home Phone [...] | | | | | [place] [address] | | + + + + + | Thania Mallory | ECON | [address] | | | | | [place] [address] | | + + + + + | Deidra Weldon | ECON | [address] | | | | | [place] | | | | | [address] | | + + + + + Care Team Providers + +------+ + | Care Staining Machine Operator Name | Role | Phone [...] | | | | | [place]o [place], | | | | | | [place] [address] | | | +--------+ + + + [...] Denise | | | | | | [place], [place] | | | | | | [address] | | | | | | [phone] | | | | | | | [...] + | [facility] - | [address] | [place] [address] | | | IMMUNOGENETICS/TRANS | [address] | | | | PLANT LAB[facility] | | | | + + + + + LIT FLOW HLA II AB AG ID EVA, BLOOD (03/18/2014 7:45 AM PST) + + | Specimen | + + | Blood - Blood | + + + + + + + | Performing | Address | City/State/Zipcode | Phone Number | | Organization | | | | + + + + + | [facility] - | [address] | [place] [address] | | | IMMUNOGENETICS/TRANS | [address] | | | | PLANT LABORATORY | | | | + + + + + LIT FLOW HLA I AB ID EVA, BLOOD (03/18/2014 7:45 AM PST) + + [...] + | [facility] - | [address] | [place] [address] | | | IMMUNOGENETICS/TRANS | [address] | | | | PLANT LABORATORY | | | | + + + + + documented in this encounter Visit Diagnoses + + | Diagnosis | + + | End stage renal disease (HCC) End stage renal disease | + + documented in this encounter"
--- OUTSIDE RECORDS SUMMARY | ~2019-02-17 | XMS | Encounter Summary ---
Demographics + + + | Address | [address] | | | [place] [address] | + + + | Home Phone | | + + + | Preferred Language | Unknown | + + + | Marital Status | Single | + + + | Adventism Affiliation | Unknown | + + + | Race | Unknown | + + + | Ethnic Group | Unknown | + + + Author + + + | Author | [facility] | | | and [place] | + + + | Organization | [facility] | | | and [place] | [...] Team Providers + +------+ + | Care Grease Rack Worker Name | Role | Phone | [...] NEPHROLOGY [address] | M, DO [address] | | | | | [address] | [place] | | | | | [place], [place] | [place], [place] | | | | | [address] | [address] | | | | | [phone] | | | +--------+ + + + [...] + documented as of this encounter Progress Vira Erazo - 01/19/2017 9:01 AM PSTOutside record: New Patient Starter Program Macario danielson DOS 01-17-17. Sent to scanning. 9 :02 AM [...] [address] | | | | | | [place] [address] | | | | | | [phone] | | | | | | | | +--------+---------+ + + + documented as of this encounter Visit Diagnoses Not on filedocumented in this encounter"
--- OUTSIDE RECORDS SUMMARY | ~2019-02-17 | XMS | Encounter Summary ---
Demographics + + + | Address | [address] | | | [place] [address] | + + + | Home Phone | | + + + | Preferred Language | Unknown | + + + | Marital Status | Single | + + + | Orthodoxy Affiliation | Unknown | + + + | Race | Unknown | + + + | Ethnic Group | Unknown | + + + Author + + + | Author | [facility] | | | and [place] | + + + | Organization | [facility] | | | and [...] Team Providers + +------+ + | Care Die Try Out Worker Stamping Name | Role | Phone | + [...] | | | | | | | [place] | | | | | | | [...] Fistula | | | | [address] | [place] | Creation | | | | [place] | [place] [address] | | | | | [address] | [phone] | | | | | [phone] | | | +--------+---------+ + + + [...] might be different f rom the original. [facility] POST-OP INSTRUCTIONS: Arterio-Venous Fistula 1. Keep the [...] may interact with prescription medicines or other jiut-yox-evrsczu (OTC) drugs. The FDA recommends reading OTC medication labels careful ly to clearly understand the list of active ingredients, directions, and any precautions to help avoid taking too muchacetaminophen. If you have questions, ask your pharmacist or a [facility] care provider. Managing Nausea Some people [...] or skin changes (rash, itching, or hives). 9087-[address] [employer]. [address] [place] [address], [place] [address]. All righ ts reserved. This information is [...] | | | | | [place] [address] | | | | | | [phone] | | | | | | | [...] | | | | | mmol/L | [facility] | | | | [...] | | | | | | [facility] | | | | | | MEDICAL | | | | | | CENTER - | | | | | | LABORATORY | | + + + + + + | BUN | 52 (H) | 7 - 18 mg/dL | [facility] | | | | | | [facility] | | | | | | MEDICAL | | | | | | CENTER - | | | | | | LABORATORY | | + + + + + + | Creatinine | 9.21 (HH)Comment: Alert | 0.60 - 1.30 | [facility] | | | | Value: Clinical Provider | mg/dL | [facility] | | | | notification at Nurses | | MEDICAL | | | | discretion. | | CENTER - | | | | | | LABORATORY | | + + + + + + | eGFR if not | Comment: GFR not | >=60 | KATHY | | | | calculated for this age | mL/min/1.73m2 | [facility] | | | [place] | (<18). | | MEDICAL | | | | | | CENTER - | | | | | | LABORATORY | | + + + + + + | Calcium | 8.8 | 8.3 - 10.5 | [facility] | | | | | mg/dL | [facility] | | | | | | [...] | + + + + + | [facility] | [address] | [place] | [phone] | | [facility] | | [address] | | | - LABORATORY | | | | + + + + + | [facility] | [address] | [place], [place] | | | [facility] | | [address] | | | - LABORATORY | | [...] | | | | | Minutes, ONCE, Mon02/24/14 at | | | | | | [...]
--- OUTSIDE RECORDS SUMMARY | ~2019-02-17 | XMS | Encounter Summary ---
Demographics + + + | Address | [address] | | | [place] [address] | + + + | Home Phone [...] | | | | | [place] [address] | | + + + + + | Thania Mallory | ECON | [address] | | | | | [place] [address] | | + + + + + | Deidra Weldon | ECON | [address] | | | | | [place] | | | | | [address] | | + + + + + Care Team Providers + +------+ + | Care Medical Office Manager Name | Role | Phone | [...] + + | 02/25/ | Abstract | Transplant | Jesus Edmond, | Transplant Form | | 2013 | | Coordinators [address] | [address] | Update | | | | [address] [facility] | [facility] [address] | | | | | [place], [place] | [place], [place] | | | | | [address] | [address] | | | | | [phone] | [phone] | | | | | | | [...] Denise | | | | | | [place] | | | | | | [address] | | | | | | [phone] | | | | | | | | +--------+ + + + + documented as of this encounter Visit Diagnoses Not on filedocumented in this encounter"
--- OUTSIDE RECORDS SUMMARY | ~2019-02-17 | XMS | Encounter Summary ---
Demographics + + + | Address | [address] | | | [place] [address] | + + + | Home Phone [...] | | | | | [place] [address] | | + + + + + | Thania Mallory | ECON | [address] | | | | | [place] [address] | | + + + + + | Deidra Weldon | ECON | [address] | | | | | [place] | | | | | [address] | | + + + + + Care Team Providers + +------+ + | Care Hat Mender Name | Role | Phone | + [...] [address]ordinators [address] | RN [address] [facility] | | | | | [address] [facility] | [facility] | | | | | Rd [place], [place] | [place], [place] | | | | | [address] | [address] | | | | | [phone] | | | +--------+ + + + [...] | | | | | | [place], [place] | | | | | | [address] | | | | | | [phone] | | | | | | | | +--------+ + + + + documented as of this encounter Visit Diagnoses Not on filedocumented in this encounter"
--- OUTSIDE RECORDS SUMMARY | ~2019-02-17 | XMS | Encounter Summary ---
Demographics + + + | Address | [address] | | | [place] [address] | + + + | Home Phone [...] | | | | | [place] [address] | | + + + + + | Thania Mallory | ECON | [address] | | | | | [place] [address] | | + + + + + | Deidra Weldon | ECON | [address] | | | | | [place] | | | | | [address] | | + + + + + Care Team Providers + +------+ + | Care Systems Qa Analyst Name | Role | Phone | [...] | on | [address]ordinators [address] | [address] | | | | | [address] [facility] | [facility], | | | | | [place], [place] | [place] [address] | | | | | [address] | | | | | | [phone] | | | +--------+ + + + [...] Denise | | | | | | [place] | | | | | | [address] | | | | | | [phone] | | | | | | | | +--------+ + + + + documented as of this encounter Visit Diagnoses Not on filedocumented in this encounter"
--- OUTSIDE RECORDS SUMMARY | ~2019-02-17 | XMS | Encounter Summary ---
Demographics + + + | Address | [address] | | | [place] [address] | + + + | Home Phone [...] | | | | | [place] [address] | | + + + + + | Thania Mallory | ECON | [address] | | | | | [place] [address] | | + + + + + | Deidra Weldon | ECON | [address] | | | | | [place] | | | | | [address] | | + + + + + Care Team Providers + +------+ + | Care Risk Adjustment Specialist Name | Role | Phone | [...] | Decision | | | | [address] [facility] | [facility] | | | | | Rd [place], [place] | [place], [place] | | | | | [address] | [address] | | | | | [phone] | | | +--------+ + + + [...] [place] | | | | | | [address] | | | | | | [phone] | | | | | | | | +--------+ + + + + documented as of this encounter Visit Diagnoses Not on filedocumented in this encounter"
--- OUTSIDE RECORDS SUMMARY | ~2019-02-17 | XMS | Encounter Summary ---
Demographics + + + | Address | [address] | | | [place] [address] | + + + | Home Phone [...] | | | | | [place] [address] | | + + + + + | Thania Mallory | ECON | [address] | | | | | [place] [address] | | + + + + + | Deidra Weldon | ECON | [address] | | | | | [place] | | | | | [address] | | + + + + + Care Team Providers + +------+ + | Care Radiology Transporter Name | Role | Phone | + [...] + + | 02/07/ | Documentati | Transplant | Mariza Hsu | Social Work | | 2013 | on | Coordinators [address] | [address] | Transplant | | | | [address] [facility] | [address] | Evaluation | | | | Rd [place], [place] | [place], [place] | (pre-listing | | | | [address] | [address] | pediatric [place] | | | | [phone] | | update) | +--------+ + + [...] Denise | | | | | | [place] | | | | | | [address] | | | | | | [phone] | | | | | | | | +--------+ + + + + documented as of this encounter Visit Diagnoses Not on filedocumented in this encounter"
--- OUTSIDE RECORDS SUMMARY | ~2019-02-17 | XMS | Encounter Summary ---
Demographics + + + | Address | [address] | | | [place] [address] | + + + | Home Phone [...] + + + | Author | [facility] | | | and [place] | + + + | Organization | [facility] | [...] + +------+ + | Care Numerical Control Machine Machinist Name | Role | Phone | + +------+ + | Jonathan Alonso MD | PCP | | + +------+ + Encounter Details +--------+ + + + + | Date | Type | Department | Care Team | Description | +--------+ + + + + | 08/13/ | Emergency | [facility] | | | | 2019 | | MEDICAL CENTER | | | | | | EMERGENCY CENTER | | | | | | [address] | | | | | | [place], [place] | | | | | | [address] | | | | | | [phone] | | | +--------+ + + + [...] | | | | | renal disease) ([facility]) | protocol | | | | [...] [address] | | | | | | [place] [address] | | | | | | [phone] | | | | | | | | +--------+---------+ + + + documented as of this encounter Visit Diagnoses Not on filedocumented in this encounter"
--- OUTSIDE RECORDS SUMMARY | ~2019-02-17 | XMS | Encounter Summary ---
[...] | [facility] | | | and Josephana | + + + | Organization | [facility] [...] Providers + +------+ + | Care Account Assistant Name | Role | Phone | [...] | Procedures | [place], [place] | [place] [address] | | | | | [place] | [address] | Phone: | | | | | ANASTOMOSIS, | Phone: | [phone] | | | | | AV,ANY SITE | [phone] | Fax: | | | | | | Fax: | [phone] | | | | | | [phone] | | +--------+ + + + + [...] | | | | | disease) | Lynn, Jaciel | [address] | | | | | ([facility]) | [address] [place] | [place], | | | | | | [place], [place] | [place] [address] | | | | | | [address] | Phone: | | | | | | Phone: | [phone] | | | | | | [phone] | Fax: | | | | | | Fax: | [phone] | | | | | | [phone] | | +--------+ + + + + + Encounter Details +--------+---------+ + + + | Date | Type | Department | Care Team | Description | +--------+---------+ + + + | 12/18/ | Office | [facility] | Blake | End stage renal | | 2013 | Visit | SURGERY [address] | MD Antonieta, FACS [address] | disease (HCC) | | | | [place], [place] | [address] [facility] | (Primary Dx) | | | | [address] | [place] [address] | | | | | [phone] | [phone] | | | | | | | [...] before your surgery. This means No coffee, kenny er, juice or toast on the morning [...] Care ? Shahid Camargo Who is your Litigation Support Analyst/Kidney Specialist ? Dr. Camp When was the current dialysis access placed? July [address] [facility] in [place] What problems are there with the current dialysis access? 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 Patient used to have PD catheter for dialysis 2012--[facility] in [place] . Came out Jul, 2013 . Then got RIGHT IJ catheter. Also got catheter at [facility]. Live in [place]. Go es to [facility] in [place] for dialysis. Now needs AVF. Is RIGHt hand dominant. No pains in hands. 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 Currently on [facility] for kidney transplant. Wants AVF in LEFT [...] ed for acceptable candidacy. Will f/u with [facility] Transplant Team. Shahid Cruz Raman's notes were not available to be reviewed in clinic today. PAST MEDICAL HISTORY Past Medical History She has a past medical history of HSP (Henoch-Schonlein purpura) nephritis (HCC) (1987) and ESRD (end stage renal disease) ([facility]). Past Surgical History She Past [...] REPORT: PATIENT NAME : Dara Weldon EQUIPMENT: SonUS Toxicology M-Turbo with 10-5 mHertz probe. INDICATIONS: Dialysis [...] DAV[place]SON | | | | | | [place] [address] | | | | | | [phone] | | | | | | | [...]
--- OUTSIDE RECORDS SUMMARY | ~2019-02-17 | XMS | Encounter Summary ---
Demographics + + + | Address | [address] | | | [place] [address] | + + + | Home Phone [...] | | | | | [place] [address] | | + + + + + | Thania Mallory | ECON | [address] | | | | | [place] [address] | | + + + + + | Deidra Weldon | ECON | [address] | | | | | [place] | | | | | [address] | | + + + + + Care Team Providers + +------+ + | Care Data Input Clerk Name | Role | Phone | [...] Hoffmann | | | | | ANNALISA [facility] | [facility] | | | | | Rd [place], [place] | [place], [place] | | | | | [address] | [address] | | | | | [phone] | | | +--------+ + + + [...] Denise | | | | | | [place] | | | | | | [address] | | | | | | [phone] | | | | | | | | +--------+ + + + + documented as of this encounter Visit Diagnoses Not on filedocumented in this encounter"
--- OUTSIDE RECORDS SUMMARY | ~2019-02-17 | XMS | Encounter Summary ---
Demographics + + + | Address | [address] | | | [place] [address] | + + + | Home Phone [...] | Author | [facility] | | | and Josephana | + + + | Organization | [facility] | [...] Team Providers + +------+ + | Care Nursing Specialist Name | Role | Phone | [...] | stage renal | [address] | [address] [place] [address] | | | | | disease) | Shun Griffin | Jaciel Gotti | | | | | ([facility]) | [address] | [address] [place] | | | | | Anemia in | [place], [place] | [place] | | | | | ESRD | [address] | [address] Phone: | | | | | (end-stage | Phone: | [phone] | | | | | renal | [phone] | Fax: | | | | | disease) | Fax: | [phone] | | | | | ([facility]) | [phone] | | | | | | Procedures | | | | | | | MS OFFICE | | | | | | | OUTPATIENT | | | | | | | VISIT 25 | | | | | | | MINUTES | | | +--------+--------+ + + + + Encounter Details +--------+ + + + + | Date | Type | Department | Care Team | Description | +--------+ + + + + | 08/21/ | Off-Site | [facility] | Jorje Camp | ESRD (end stage | | 2018 | Visit | NEPHROLOGY [address] | M, DO [address] | renal disease) ([facility]) | | | | [address] | [place], [address] | (Primary Dx) | | | | [place], [place] | [place], [place] | | | | | [address] | [address] | | | | | [phone] | | | +--------+ + + + [...] + + + | Blood Pressure | 132/100 | 08/21/2017 6:35 PM | | | | | PDT | | + + + + + | Pulse | - | - | | + + + + + | Temperature | 36.6 C (97.9 F) | 08/21/2017 6:35 PM | | | | | PDT [...] encounter Progress Notes Jorje Camp DO - 08/21/2017 10:30 AM PDT Subjective: DIALYSIS NOTE Patient ID: Dara Weldon is a 22 y.o. female. 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 She also has anemia secondary to CKD, SHPTH, centripetal obesity. Despite multiple attempts at counseling her regarding lifestyle changes and compliance incl uding the charge nurse, staff nurses, PCT's, child welfare caseworker, dietitian myself she fails to heed any sound medical advice. Unfortunately states he still misses multiple treatments weekly. Outpatient Prescriptions Marked as Taking for the 08/21/17 encounter (Appointment) with Shravan Camp DO Medication [...] and Rash Lisinopril cough Objective: BP (!) 132/100 | Temp 36.6 C (97.9 F) EDW 75 kg Physical Exam Heart: Regular rate and rhythm with no S3, S4, murmur or rub. Lungs: CTA bilaterally. No rales or wheezes. Abdomen: Soft, obese, nontender, normoactive bowel sounds.. Extremities: No clubbing, cyanosis, or edema. LAB: BUN 67, Cr 17.1, K+ 5.5, HCO3 20, albumin 3.8, Ca++ 10.4, phosphorus 9.3, PTH 1231, Hb 10.2, spKT/V = 1.64. Assessment: 1. ESRD-- alert current Rx prescribed is adequate she does not seek 3 treatment/week resul ting in suboptimal monthly lab and chronic hypertension, chronic fluid overload. 2. Hypertension-- see above. 3. SHPTH-- chronically hypophosphatemic. She will be at significant risk for calciphylaxi s and metastatic calcification 36 months. 4. Nutrition--fairly good. 5. Anemia secondary to CKD-- by virtue recurrent C she is chronically under dosed on EPO . 6. Centripetal obesity-- under dialysis on Dara 's part, not the Clinic, has led to megan e wt. loss and decreased appetite? 7. 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 8. Transplantation--not at all a candidate and at high risk for graft loss due to her stevie turity and lack of insight into her CKD. 9. Self-destructive behavior--sadly no behavioral strategies have been effective for this today in Plan: 1. Will continue to sexual assault counsellor her about her high risk for cardiovascular morbidity and compl ications given her lack of full compliance with her treatment. 2. The renal JOURNEYMAN ELECTRICIAN has been attempting to reach her. However, as above she continuously spu rs any sound advice. 3. Will recheck her in 2 weeks. : Jamil Harden documented in thi s encounter [...] [place] | | | | | | [place] [address] | | | | | | [phone] | | | | | | | | +--------+---------+ + + + documented as of this encounter Visit Diagnoses + + | Diagnosis | + + | ESRD (end stage renal disease) (HCC) - Primary End stage renal disease | + + documented in this encounter"
--- OUTSIDE RECORDS SUMMARY | ~2019-02-17 | XMS | Encounter Summary ---
Demographics + + + | Address | [address] | | | [place] [address] | + + + | Home Phone [...] | | | | | [place] [address] | | + + + + + | Thania Mallory | ECON | [address] | | | | | [place] [address] | | + + + + + | Deidra Weldon | ECON | [address] | | | | | [place] | | | | | [address] | | + + + + + Care Team Providers + +------+ + | Care Company Laborer Name | Role | Phone | [...] | Nephrology at | MD Emanuel [address] [facility] | | | | | Alexander | [facility] | | | | | [facility] | [place], [place] | | | | | [address] [facility] | [address] | | | | | Mailcode: DCAnna | [phone] | | | | | Alexander | | | | | | [place], [place] | | | | | | [address] | | | | | | [phone] | | | +--------+--------+ + + + [...] Denise | | | | | | [place], [place] | | | | | | [address] | | | | | | [phone] | | | | | | | | +--------+ + + + + documented as of this encounter Visit Diagnoses Not on filedocumented in this encounter"
--- OUTSIDE RECORDS SUMMARY | ~2019-02-17 | XMS | Encounter Summary ---
Demographics + + + | Address | [address] | | | [place] [address] | + + + | Home Phone [...] | | | | | [place] [address] | | + + + + + | Thania Mallory | ECON | [address] | | | | | [place] [address] | | + + + + + | Deidra Weldon | ECON | [address] | | | | | [place] | | | | | [address] | | + + + + + Care Team Providers + +------+ + | Care Channeler Runner Name | Role | Phone | + [...] | Update | | | | ANNALISA [facility] | [facility] | | | | | Rd [place], [place] | [place], [place] | | | | | [address] | [address] | | | | | [phone] | | | +--------+ + + + [...] Denise | | | | | | [place] | | | | | | [address] | | | | | | [phone] | | | | | | | | +--------+ + + + + documented as of this encounter Visit Diagnoses Not on filedocumented in this encounter"
--- OUTSIDE RECORDS SUMMARY | ~2019-02-17 | XMS | Encounter Summary ---
Demographics + + + | Address | [address] | | | [place] [address] | + + + | Home Phone [...] | Author | [facility] | | | and Josephana | + + + | Organization | [facility] | | | [...] Providers + +------+ + | Care Music Historian Name | Role | Phone | + +------+ + | Jonathan Alonso MD | PCP | | + +------+ + Encounter Details +--------+ + + + + | Date | Type | Department | Care Team | Description | +--------+ + + + + | 04/10/ | Abstract | [facility] | Edvin Pulido Samealeyda | | | 2019 | | [facility] | MD Linda [address] | | | | | KIDNEY TRANSPLANT | [address] [place], | | | | | [address] [place] | [place] [address] | | | | | [address] [place], [place] | [phone] | | | | | [address] | | | | | | [phone] | | | +--------+ + + + [...] DAV[place]SON | | | | | | [place] [address] | | | | | | [phone] | | | | | | | | +--------+---------+ + + + documented as of this encounter Visit Diagnoses Not on filedocumented in this encounter"
--- OUTSIDE RECORDS SUMMARY | ~2019-02-17 | XMS | Encounter Summary ---
Demographics + + + | Address | [address] | | | [place] [address] | + + + | Home Phone [...] | | | | | [place] [address] | | + + + + + | Thania Mallory | ECON | [address] | | | | | [place] [address] | | + + + + + | Deidra Weldon | ECON | [address] | | | | | [place] | | | | | [address] | | + + + + + Care Team Providers + +------+ + | Care Carbon Sequestration Plant Operator Name | Role | Phone [...] issues with | | | | Rd [place], [place] | [place], [place] | pt's dad) | | | | [address] | [address] | | | | | [phone] | | | +--------+ + + + [...] [place] | | | | | | [address] | | | | | | [phone] | | | | | | | | +--------+ + + + + documented as of this encounter Visit Diagnoses Not on filedocumented in this encounter"
--- OUTSIDE RECORDS SUMMARY | ~2019-02-17 | XMS | Encounter Summary ---
Demographics + + + | Address | [address] | | | [place] [address] | + + + | Home Phone [...] + | Author | [facility] | | | and Josephana | + + + | Organization | [facility] | | | and Josephana [...] Providers + +------+ + | Care Clinical Data Manager Name | Role | Phone | [...] NEPHROLOGY [address] | M, DO [address] [place] | | | | | [address] | [place], [address] | | | | | [place], [place] | [place], [place] | | | | | [address] | [address] | | | | | [phone] | | | +--------+ + + + [...] DAVIDSON | | | | | | [place] [address] | | | | | | [phone] | | | | | | | | +--------+---------+ + + + documented as of this encounter Visit Diagnoses Not on filedocumented in this encounter"
--- OUTSIDE RECORDS SUMMARY | ~2019-02-17 | XMS | Encounter Summary ---
Demographics + + + | Address | [address] | | | [place] [address] | + + + | Home Phone [...] | | | | | [place] [address] | | + + + + + | Thania Mallory | ECON | [address] | | | | | [place] [address] | | + + + + + | Deidra Weldon | ECON | [address] | | | | | [place] | | | | | [address] | | + + + + + Care Team Providers + +------+ + | Care Museum Or Zoo Director Name | Role | Phone | [...] Hoffmann | | | | | ANNALISA [facility] | [facility] | | | | | Rd [place], [place] | [place], [place] | | | | | [address] | [address] | | | | | [phone] | | | +--------+ + + + [...] Denise | | | | | | [place] | | | | | | [address] | | | | | | [phone] | | | | | | | | +--------+ + + + + documented as of this encounter Visit Diagnoses Not on filedocumented in this encounter"
--- OUTSIDE RECORDS SUMMARY | ~2019-02-17 | XMS | Encounter Summary ---
Demographics + + + | Address | [address] | | | [place] [address] | + + + | Home Phone [...] | | | | | [place] [address] | | + + + + + | Thania Mallroy | ECON | [address] | | | | | [place] [address] | | + + + + + | Deidra Weldon | ECON | [address] | | | | | [place] | | | | | [address] | | + + + + + Care Team Providers + +------+ + | Care Oven Roaster Name | Role | Phone | + [...] Shun | | | | | ANNALISA [facility] | [facility] | | | | | Rd [place], [place] | [place], [place] | | | | | [address] | [address] | | | | | [phone] | | | +--------+ + + + [...] Denise | | | | | | [place], [place] | | | | | | [address] | | | | | | [phone] | | | | | | | | +--------+ + + + + documented as of this encounter Visit Diagnoses Not on filedocumented in this encounter"
--- OUTSIDE RECORDS SUMMARY | ~2019-02-17 | XMS | Encounter Summary ---
Demographics + + + | Address | [address] | | | [place] [address] | + + + | Home Phone [...] + + | Author | [facility] | | | and Josephana | + + + | Organization | [facility] | | | and [...] Team Providers + +------+ + | Care Swimming Pool Maintenance Name | Role | Phone | + [...] NEPHROLOGY [address] | M, DO [address] [place] | | | | | [address] | [place], [address] | | | | | [place], [place] | [place], [place] | | | | | [address] | [address] | | | | | [phone] | | | +--------+ + + + [...] PSTOutside record: New patient starter program from [facility], dos: 02/12/17. Sent to [facility].Electronically signed by Marilyn Palumbo at 0[address] [...] DAV[place] | | | | | | [place] [address] | | | | | | [phone] | | | | | | | | +--------+---------+ + + + documented as of this encounter Visit Diagnoses Not on filedocumented in this encounter"
--- OUTSIDE RECORDS SUMMARY | ~2019-02-17 | XMS | Encounter Summary ---
Demographics + + + | Address | [address] | | | [place] [address] | + + + | Home Phone [...] | | | | | [place] [address] | | + + + + + | Thania Mallory | ECON | [address] | | | | | [place] [address] | | + + + + + | Deidra Weldon | ECON | [address] | | | | | [place] | | | | | [address] | | + + + + + Care Team Providers + +------+ + | Care Power Sweeper Operator Name | Role | Phone | [...] ([address] | | | | [address] | [address] | clinic check-in) | | | | Dea Jane | [place], [place] | | | | | [place], [place] | [address] | | | | | [address] | | | | | | [phone] | | | +--------+ + + + [...] Denise | | | | | | [place] | | | | | | [address] | | | | | | [phone] | | | | | | | | +--------+ + + + + documented as of this encounter Visit Diagnoses Not on filedocumented in this encounter"
--- OUTSIDE RECORDS SUMMARY | ~2019-02-17 | XMS | Encounter Summary ---
Demographics + + + | Address | [address] | | | [place] [address] | + + + | Home Phone [...] | | | | | [place] [address] | | + + + + + | Thania Mallory | ECON | [address] | | | | | [place] [address] | | + + + + + | Deidra Weldon | ECON | [address] | | | | | [place] | | | | | [address] | | + + + + + Care Team Providers + +------+ + | Care Solar Energy Technician Name | Role | Phone | [...] + + | 05/11/ | Documentati | Transplant | Mariza Hsu | Social Work Waitlist | | 2016 | on | Coordinators [address] | [address] | Update (ANNALISA GORDON | | | | ANNALISA [address] | [address] | update; check-in on | | | | Rd [place], [place] | [place], [place] | psychosocial goals | | | | [address] | [address] | related to listing | | | | [phone] | | status) | +--------+ + + [...] Denise | | | | | | [place], [place] | | | | | | [address] | | | | | | [phone] | | | | | | | | +--------+ + + + + documented as of this encounter Visit Diagnoses Not on filedocumented in this encounter"
--- OUTSIDE RECORDS SUMMARY | ~2019-02-17 | XMS | Encounter Summary ---
Demographics + + + | Address | [address] | | | [place] [address] | + + + | Home Phone [...] + | Author | [facility] | | | and Josephana | + + + | Organization | [facility] [...] Team Providers + +------+ + | Care Atmospheric Physicist Name | Role | Phone | + +------+ + PCP | Unavailable | + +------+ + Encounter Details +--------+ + + + + | Date | Type | Department | Care Team | Description | +--------+ + + + + | 05/17/ | Hospital | [facility] GENERIC OP | Sudhakar Joy | | | 2010 | Encounter | JOY | MD Emanuel [address] | | | | | [address] | [facility] | | | | | [address] | [place], [place] | | | | | [place], [place] | [address] | | | | | [address] | [phone] | | | | | [phone] | | | +--------+ + + + [...] DAVIDSON | | | | | | [place] [address] | | | | | | [phone] | | | | | | | | +--------+---------+ + + + documented as of this encounter Visit Diagnoses Not on filedocumented in this encounter"
--- OUTSIDE RECORDS SUMMARY | ~2019-02-17 | XMS | Encounter Summary ---
Demographics + + + | Address | [address] | | | [place] [address] | + + + | Home Phone [...] Author | [facility] | | | and Josephana | + + + | Organization | [facility] | | | and Josephana [...] Team Providers + +------+ + | Care Trip Follower Name | Role | Phone | + [...] + + | 12/17/ | Telephone | [facility] | Glady, | Appointment | | 2019 | | CENTER CASE | Irish Obrien CMA | (Appointment with | | | | MANAGEMENT [address] | | PCP needed) | | | | [address]OR[address] | | | | | | [place], [place] | | | | | | [address] | | | | | | [phone] | | | +--------+ + + + [...] | | | | | | [place] [address] | | | | | | [phone] | | | | | | | | +--------+---------+ + + + documented as of this encounter Visit Diagnoses Not on filedocumented in this encounter"
--- OUTSIDE RECORDS SUMMARY | ~2019-02-17 | XMS | Encounter Summary ---
Demographics + + + | Address | [address] | | | [place] [address] | + + + | Home Phone [...] | | | | | [place] [address] | | + + + + + | Thania Mallory | ECON | [address] | | | | | [place] [address] | | + + + + + | Deidra Weldon | ECON | [address] | | | | | [place] | | | | | [address] | | + + + + + Care Team Providers + +------+ + | Care Bundle Helper Name | Role | Phone | [...] | | | | | ANNALISA Hoffmann [facility] | [facility] | | | | | Rd [place], [place] | [place], [place] | | | | | [address] | [address] | | | | | [phone] | | | +--------+ + + + [...] Denise | | | | | | [place] | | | | | | [address] | | | | | | [phone] | | | | | | | | +--------+ + + + + documented as of this encounter Visit Diagnoses Not on filedocumented in this encounter"
--- OUTSIDE RECORDS SUMMARY | ~2019-02-17 | XMS | Encounter Summary ---
Demographics + + + | Address | [address] | | | [place] [address] | + + + | Home Phone [...] | | | | | [place] [address] | | + + + + + | Thania Mallory | ECON | [address] | | | | | [place] [address] | | + + + + + | Deidra Weldon | ECON | [address] | | | | | [place] | | | | | [address] | | + + + + + Care Team Providers + +------+ + | Care Crtt Name | Role | Phone | + [...] Nephrology at | RN [address] [facility] | | | | | Alexander | [facility] | | | | | [facility] | [place], [place] | | | | | [address] [place] [address] Dr | [address] | | | | | Mailcode: DCH7 | | | | | | Alexander | | | | | | [place], [place] | | | | | | [address] | | | | | | [phone] | | | +--------+ + + + [...] Denise | | | | | | [place], [place] | | | | | | [address] | | | | | | [phone] | | | | | | | | +--------+ + + + + documented as of this encounter Visit Diagnoses + + | Diagnosis | + + | 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
--- OUTSIDE RECORDS SUMMARY | ~2019-02-17 | XMS | Encounter Summary ---
Demographics + + + | Address | [address] | | | [place] [address] | + + + | Home Phone [...] | | | | | [place] [address] | | + + + + + | Thania Mallory | ECON | [address] | | | | | [place] [address] | | + + + + + | Deidra Weldon | ECON | [address] | | | | | [place] | | | | | [address] | | + + + + + Care Team Providers + +------+ + | Care Rug Dyer Name | Role | Phone | + [...] | | | ANNALISA [facility] | [facility] | | | | | Rd [place], [place] | [place], [place] | | | | | [address] | [address] | | | | | [phone] | | | +--------+ + + + [...] Denise | | | | | | [place], [place] | | | | | | [address] | | | | | | [phone] | | | | | | | | +--------+ + + + + documented as of this encounter Visit Diagnoses Not on filedocumented in this encounter"
--- OUTSIDE RECORDS SUMMARY | ~2019-02-17 | XMS | Encounter Summary ---
Demographics + + + | Address | [address] | | | [place] [address] | + + + | Home Phone [...] + + + | Author | [facility] | | | and Josephana | + + + | Organization | [facility] | | | and [...] Providers + +------+ + | Care Television Presenter Name | Role | Phone | + [...] | stage renal | [address] | [address] [place] [address] | | | | | disease) | Shun Griffin | [place] | | | | | (HCC) | [address] | [address] [place] | | | | | Anemia in | [place], [place] | [place], [place] | | | | | ESRD | [address] | [address] Phone: | | | | | (end-stage | Phone: | [phone] | | | | | renal | [phone] | Fax: | | | | | disease) | Fax: | [phone] | | | | | ([facility]) | [phone] | | | | | | Procedures | | | | | | | [place] OFFICE | | | | | | [...] [address] | renal disease) ([facility]) | | | | [address] | [place] | (Primary Dx) | | | | [place], [place] | [place], [place] | | | | | [address] | [address] | | | | | [phone] | | | +--------+ + + + [...] Fina charge nurse, Elisabeth Quijano RN, and [facility] medical student Yefri Bean MS III, about lifestyle modification, compliance, and her potential risk for increased her vascular morbidity, mortality. 2. 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 I discussed this wi th the renal TRUCK DRIVING INSTRUCTOR. 3. Monthly lab was reviewed with the patient. 4. Long-term prognosis remains poor, due to her poor to no insight into her chronic health conditions, or health maintenance. : Adair Fina Alonso MD, PhD documented in thi [...] | | | | | [place] [address] | | | | | | [phone] | | | | | | | | +--------+---------+ + + + documented as of this encounter Visit Diagnoses + + | Diagnosis | + + | ESRD (end stage renal disease) (HCC) - Primary End stage renal disease | + + documented in this encounter"
--- OUTSIDE RECORDS SUMMARY | ~2019-02-17 | XMS | Encounter Summary ---
Demographics + + + | Address | [address] | | | [place] [address] | + + + | Home Phone [...] + + + | Author | [facility] | | | and [place]ana | + + + | Organization | [facility] | | [...] Team Providers + +------+ + | Care Aircraft Motor Mechanic Name | Role | Phone [...] [address] [place] | [place] [address] | | | | | [address] [place] [address] | [phone] | | | | | [address] | | | | | | [phone] | | | +--------+ + + + [...] [place] | | | | | | [place] [address] | | | | | | [phone] | | | | | | | | +--------+---------+ + + + documented as of this encounter Visit Diagnoses Not on filedocumented in this encounter"
--- OUTSIDE RECORDS SUMMARY | ~2019-02-17 | XMS | Encounter Summary ---
Demographics + + + | Address | [address] | | | [place] [address] | + + + | Home Phone [...] | Author | [facility] | | | and [place] | + + + | Organization | [facility] | | | and [...] Team Providers + +------+ + | Care Hopper Feeder Name | Role | Phone | + +------+ + PCP | Unavailable | + +------+ + Encounter Details +--------+ + + + + | Date | Type | Department | Care Team | Description | +--------+ + + + + | 05/14/ | Hospital | [facility] | Michelle Benitez, | | | 2008 | Encounter | [facility]Y | [address] | | | | | C[address] | [place], [place] | | | | [address] [place], [place] | [address] | | | | | [address] | [phone] | | | | | [phone] | | | +--------+ + + + [...] [place] | | | | | | [place] [address] | | | | | | [phone] | | | | | | | | +--------+---------+ + + + documented as of this encounter Visit Diagnoses Not on filedocumented in this encounter"
--- OUTSIDE RECORDS SUMMARY | ~2019-02-17 | XMS | Encounter Summary ---
Demographics + + + | Address | [address] | | | [place] [address] | + + + | Home Phone [...] Author | [facility] | | | and [place]ana | + + + | Organization | [facility] [...] Team Providers + +------+ + | Care Uncrater Name | Role | Phone | + [...] [place] | | | | | [place] | [place] [address] | | | | | [address] | [phone] | | | | | [phone] | | | +--------+ + + + [...] [place] | | | | | | [place] [address] | | | | | | [phone] | | | | | | | [...] 0.39 m/s | | | MV Dec Vance: 9.46 m/s2 MV DecT: 106.01 ms MV E Shahid: 1.00 | | | m/s MV E/A Ratio: 2.54 E/E' Sept: 23.82 E' Lat: 0.08 m/s | | | E' Sept: 0.04 m/s RAP: 15 mmHg RV S': 0.11 m/s RVSP: | | | 67.64 mmHg TR maxP.64 mmHg TR Vmax: 3.61 m/s | | | Bridge Club Manager: Authenticated by: René Noonan MD Report Date/Time: | | | -- [id number]_50:15:25 | | + + + + + [...] (A-L): 31.60 | | ml/m2LAAs A2C: 18.56 [id number] A-L A2C: 58.49 mlLAESV MOD A2C: 54.57 mlLALs A2C: | | 5.00 cmLAAs A4C: 17.96 [id number] A-L A4C: 52.99 mlLAESV MOD A4C: 44.93 mlLALs A4C: | | 5.18 cmLAESV(MOD BP): 49.83 mlRAAs: 18.33 [id number] A-L: 57.01 mlRAESV MOD: | | 56.24 mlRALs: 5.02 cmTAPSE: 1.98 cmAV Env.Ti: 227.35 msAV maxP.22 mmHgAV | | meanP.25 mmHgAV Vmax: 1.59 m/Elizabeth Vmean: 1.06 m/Elizabeth VTI: 24.30 cmAVA Vmax: | | 2.68 cm2AVA (VTI): 2.73 [id number] Vmax: 0.00 cm2/m2AVAI (VTI): 0.00 cm2/m2LVOT | | Env.Ti: 210.72 msLVOT maxP.99 mmHgLVOT meanP.87 mmHgLVSI Dopp: 37.17 | | ml/m2LVSV Dopp: 66.54 mlLVOT Vmax: 1.41 m/sLVOT Vmean: 1.03 m/sLVOT VTI: 21.88 | | cmMV A Shahid: 0.39 m/sMV Dec Vance: 9.46 m/s2MV DecT: 106.01 msMV E Shahid: 1.00 | | m/sMV E/A Ratio: 2.54E/E' Sept: 23.82E' Lat: 0.08 m/sE' Sept: 0.04 m/sRAP: 15 | | mmHgRV S': 0.11 m/sRVSP: 67.64 mmHgTR maxP.64 mmHgTR Vmax: 3.61 m/s | | Bridge Club Manager:Authenticated by: René Noonan MDReport Date/Time: -- 45_[id number]_84:15:25 | | IMPRESSION: 1. Overall left ventricular [...] A Shahid: 0.39 m/s | |MV Dec Vance: 9.46 m/s2 | |MV DecT: 106.01 ms | |MV E Shahid: 1.00 m/s | |MV E/A Ratio: 2.54 | |E/E' Sept: 23.82 | |E' Lat: 0.08 m/s | |E' Sept: 0.04 m/s | |RAP: 15 mmHg | |RV S': 0.11 m/s | |RVSP: 67.64 mmHg | |TR maxP.64 mmHg | |TR Vmax: 3.61 m/s | | | |Bridge Club Manager: | |Authenticated by: René Noonan MD | |Report Date/Time: -- 71_[id number]_75:15:25 | | | |IMPRESSION: | |1. Overall [...]
--- OUTSIDE RECORDS SUMMARY | ~2019-02-17 | XMS | Encounter Summary ---
Demographics + + + | Address | [address] | | | [place] [address] | + + + | Home Phone [...] | [facility] | | | and [place] | + + + | Organization | [facility] | | | and [...] Providers + +------+ + | Care Information Services Vice President Name | Role | Phone | + [...] [address] [place] | [place] [address] | | | | | [address] [place] [address] | [phone] | | | | | [address] | | | | | | [phone] | | | +--------+ + + + [...] [place] | | | | | | [place] [address] | | | | | | [phone] | | | | | | | | +--------+---------+ + + + documented as of this encounter Visit Diagnoses Not on filedocumented in this encounter"
--- OUTSIDE RECORDS SUMMARY | ~2019-02-17 | XMS | Clinical Summary ---
Demographics + + + | Address | [address] | | | [place] [address] | + + + | Home Phone [...] | Author | [facility] | | | and Josephana | + + + | Organization | [facility] | [...] Team Providers + +------+ + | Care Mineralogy Professor Name | Role | Phone | [...] mouth Daily as | tablet | | /20 | | e | | tablet | [...] | mouth Daily. | tablet | | /20 | | e | | | | | | 19 | | | + + +--------+----+------+------+-------+ | losartan (COZAAR) | Take 1 tablet by | 30 | 1 | 09/0 | 11/2 | Disco | | 25 mg tablet | mouth Daily. | tablet | | 6/20 | 3/20 | ntinu | | | | | | 19 | 19 | ed | + + +--------+----+------+------+-------+ | valsartan (DIOVAN) | Take 40 mg by mouth | | 1 | 12/05 | 01/04 | Disco | | 80 mg tablet | Daily. | | | 11/23 | 11/23 | ntinu | | | | | | 19 | 19 | ed | | | | | | | | (Reor | | | | | | | | kenny) | + + +--------+----+------+------+-------+ Active Problems + [...] Active Kidney Transplant Waiting List at [facility]: | | 03/07/2014 | [...] 9. | | Treated by Dr. Joy, manager pediatric. 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 ESRD in 2013, started peritoneal dialysis in 2012. Switched | | ot hemodialysis in July 2013. Current Access: Right chest | | catheter. Other Access: Left radial-cephalic AVF created | | 02/24/14, primary failure (clotted on 03/07/14, attempted declot | | but reclotted). Listed at [facility] for kidney transplant - [...] 01/23/ | Hospital | Internal Medicine | JeffryVivek, | SOB (shortness of | | 2019 - | Encounter | | Omar Dick MD | breath) (Primary | | | | | Sotero Reinoso, | Dx); ESRD needing | | 01/26/ | | | Usha Del Castillo MD | dialysis ([facility]); | | 2018 | | | | Chronic pleural | | | | | | effusion; | | | | | | Noncompliance with | | | | | | renal dialysis | | | | | | ([facility]); Acute | | | | | | respiratory | | | | | | distress; Anemia in | | | | | | ESRD (end-stage | | | | | | renal disease) | | | | | | ([facility]); At high risk | | | | | | for electrolyte | | | | | | imbalance; ESRD on | | | | | | hemodialysis ([facility]); | | | | | | Hyperphosphatemia; | | | | | | Noncompliance; | | | | | | Recurrent right | | | | | | pleural effusion; | | | | | | Hypoalbuminemia | +--------+ + + + + | 01/22/ | Refill | Cardiology | Daniela Alejandre | Medication Refill | | 2018 | | | Emanuel Storm Chaser | | +--------+ + + + + | 01/07/ | Hospital | Internal Medicine | Florian Nelson, | Hyperkalemia | | 2019 - | Encounter | | Megan Fields DO | (Primary Dx); ESRD | | | | | Nicholas Sutton MD | needing dialysis | | 01/10/ | | | Piedad Mosquera, | ([facility]); Acute | | 2018 | | | MD Kline, | respiratory | | | | | DO Paty | distress; Recurrent | | | | | | right pleural | | | | | | effusion; Anemia in | | | | | | ESRD (end-stage | | | | | | renal disease) | | | | | | ([facility]); At high risk | | | | | | for electrolyte | | | | | | imbalance; 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 | | | | | | failure ([facility]); | | | | | | 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 | | | | | | ([facility]); ESRD on | | | | | | hemodialysis ([facility]); | | | | | | Noncompliance; | | | | | | Uncontrolled | | | | | | hypertension | +--------+ + + + + | 01/01/ | Refill | Nephrology | Jorje Camp | Medication Refill | | 2019 | | | DO Camille | | [...] 12/17/ | Telephone | Case Management | Alpha, | Appointment | | 2018 | | [...] present | | | | | | ([facility]) (Primary Dx); | | | | | | Pneumonia of right | | | | | | lower lobe due to | | | | | | infectious organism | | | | | | ([facility]); Hypoxia; | | | | | | Hypervolemia, | | | | | | unspecified | | | | | | hypervolemia type; | | | | | | ESRD on dialysis | | | | | | ([facility]); Hyperkalemia; | | | | | | Acute on chronic | | | | | | respiratory failure | | | | | | with hypoxia and | | | | | | hypercapnia ([facility]); | | | | | | Acute respiratory | | | | | | failure with hypoxia | | | | | | ([facility]); Anemia in | | | | | | ESRD (end-stage | | | | | | renal disease) | | | | | | ([facility]); At high risk | | | | | | for electrolyte | | | | | | imbalance; Awaiting | | | | | | organ transplant | | | | | | status; 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 | | | | | | failure ([facility]); | | | | | | Chronic right-sided | | | | | | heart failure ([facility]); | | | | | | 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 | | | | | | ([facility]); ESRD on | | | | | | hemodialysis ([facility]); | | | | | | History [...] | | | | | | function ([facility]); | | | | | | Moderate to severe | | | | | | pulmonary | | | | | | hypertension ([facility]); | | | | | | Low grade fever; | | | | | | Noncompliance of | | | | | | patient with renal | | | | | | dialysis ([facility]); | | | | [...] [address] | | | | | | [place] [address] | | | | | | [phone] | | | | | | | | +--------+---------+ + + + + + + + + | Health Maintenance | Due Date | Last Done | Comments | + + + + + | Vaccine: | | 06/21/2012 | | | Pneumococcal 19-64 | 3 | | | | (2 [...] Left: | SYNOVIS - | | | [id number] | | 0.8x8cm - [id number]: | | Arm | SYNO | | [...] | | | COVIDIEN | | | [id number] | | | | | -MATT 867 - | | | 3404 / | | | | | COVI | | | | | | | | | | | /[id number] | | | | | | | [...] | | n - | | | 11/20/ | | | 2019 | | | 10:12 | | | [...] | | | FICATI | | | ON?11/ | | | 20/201 | | | 9 | | | 22:10? | | | BLANDON | | | ON, | | | DARA | | | | | | R?MRN: | | | | | | [id number] | | | [id number] | | | riteri | | | [...] | | | St. | | | [facility] | | | y | | | [...] | | | [facility]. | | | [facility] | | | y | | | Hospit | | | alDr | | | [facility] | | | ey has | | | not | | | seen | | | Pt | | | since | | | 4//20 | | | 19. | | | [...] | | | St. | | | [facility] | | | y | | | [...] | | | St | | | [facility] | | | y | | | [...] St | | | | | | [facility] | | | y | | | [...] | | | St. | | | [facility] | | | y | | | [...] | | | St. | | | [facility] | | | y H. | | [...] | | | St. | | | [facility] | | | y H. | | [...] | | | St. | | | [facility] | | | y H. | | [...] | | | St. | | | [facility] | | | y H. | | [...] | | | St. | | | [facility] | | | y H. | | [...] | | | St. | | | [facility] | | | y H. | | [...] | | | MD | | | [employer] | | | al | | | [...] | | | [id number] | | | [id number] | | | eb | | | [...] | | | 12/10/ | | | 2019 | | | [...] R?MRN: | | | | | | [id number] | | | [id number] | | | riteri | | | [...] | | | [id number] | | | / | | | 12:00 | | | AM | | | [facility] | | | [facility] | | | [facility] | | | y | | | [...] | | | St. | | | [facility] | | | y | | | [...] | | | St. | | | [facility] | | | y | | | [...] | | | St | | | [facility] | | | y | | | [...] St | | | | | | [facility] | | | y | | | [...] | | | St. | | | [facility] | | | y | | | [...] | | | St. | | | [facility] | | | y H. | | [...] | | | St. | | | [facility] | | | y H. | | [...] | | | St. | | | [facility] | | | y H. | | [...] | | | St. | | | [facility] | | | y H. | | [...] | | | St. | | | [facility] | | | y H. | | [...] | | | St. | | | [facility] | | | y H. | | [...] | | | St. | | | [facility] | | | y H. | | [...] | | | MD | | | [employer] | | | al | | | [...] | | | [id number] | | | [id number] | | | 2b | | | [...] | | | ed.? | | | 2018 | | | Collec | | | [...] most recent of 5 results within the period is included. + [...] | | | | | [place] [address] | | | | + + + + + + + + | Specimen | + + | | + + + + + + + | Performing | Address | City/State/Zipcode | Phone Number | | Organization | | | | + + + + + | [facility] | [address] | [place] [address] | [phone] | + + + + + Magnesium [...] Testing | 1.7 - 2.4 mg/dL | [facility] | | | | performed at [facility], [address] | | LABORATORY | | | | [address], | | | | | | [place] [address] | | | | + + + + + + + + | Specimen | + + | | + + + + + + + | Performing | Address | City/State/Zipcode | Phone Number | | Organization | | | | + + + + + | [facility] | [address] | [place] [address] | [phone] | + + + + + Renal [...] 12 (L)Comment: GFR <60: | >60 | [facility] | | | GFR | CHRONIC [...] | | | | | | MDRD IDOR traceable | | | | | | equation.Testing | | | | | | performed at [facility], [address] | | | | | | [facility], | | | | | | [place] [address] | | | | + + + + + + + + | Specimen | + + | Blood | + + + + + + + | Performing | Address | City/State/Zipcode | Phone Number | | Organization | | | | + + + + + | [facility] | [address] | [place] [address] | [phone] | + + + + + Iron and Iron Binding [...] Testing | 15 - 50 % | [facility] | | | Saturation | performed at [facility], [address] | | LABORATORY | | | | [address], | | | | | | [place] [address] | | | | + + + + + + + + | Specimen | + + | Blood | + + + + + + + | Performing | Address | City/State/Zipcode | Phone Number | | Organization | | | | + + + + + | [facility] | [address] | [place] [address] | [phone] | + + + + + Troponin I (01/24/2019 5:53 AM PST)Only the most recent of 4 results within the time perio d is included. + + + + + + | Component | Value | Ref Range | Performed | Pathologist | | | | | At | Signature | + + + + + + | Troponin I | 0.228 (H)Comment: 0.04 | 0.00 - 0.04 | [facility] | | | | ng/mL or [...] at | | | | | | [facility];[address] | | | | | | [address];[place] [address] | | | | + + + + + + + + | Specimen | + + | Blood | + + + + + + + | Performing | Address | City/State/Zipcode | Phone Number | | Organization | | | | + + + + + | [facility] | [address] | [place] [address] | [phone] | + + + + + CBC [...] 8.21 | 3.8 0 - 11.00 | [facility] [...] | | at [facility], [address] | | | | | | [employer], | | | | | | [place] [address] | | | | | |Testing performed at [facility], [address] [facility], [place] [address] | | | | | | | | | | + + +---- + + + + + | Specimen | + + | Blood | + + + + + + + | Performing | Address | City/State/Zipcode | Phone Number | | Organization | | | | + + + + + | [facility] | [address] | [place] [address] | [phone] | + + + + + Phosphorus [...] Testing | 2.3 - 4.8 mg/dL | [facility] | | | | performed at [facility], [address] | | LABORATORY | | | | [address], | | | | | | [place] [address] | | | | + + + + + + + + | Specimen | + + | Blood | + + + + + + + | Performing | Address | City/State/Zipcode | Phone Number | | Organization | | | | + + + + + | [facility] | [address] | [place] [address] | [phone] | + + + + + Ferritin (01/24/2019 5:53 AM PST) + + + + + + | Component | Value | Ref Range | Performed | Pathologist | | | | | At | Signature | + + + + + + | Ferritin | 805 (H)Comment: Testing | 6 - 170 ng/mL | [facility] | | | | performed at [facility], [address] | | LABORATORY | | | | [address], | | | | | | [place] [address] | | | | + + + + + + + + | Specimen | + + | Blood | + + + + + + + | Performing | Address | City/State/Zipcode | Phone Number | | Organization | | | | + + + + + | [facility] | [address] | [place] [address] | [phone] | + + + + + Creatine Kinase, Isoenzymes (01/24/2019 5:53 AM PST) + + + + + + | Component | Value | Ref Range | Performed | Pathologist | | | | | At | Signature | + + + + + + | CK-MM | 100Comment: Testing | 97 - 100 % | [facility] | | | | performed by [facility], | | LABORATORY | | | | [address], | | | | | | [place] [address] | | | | + + + + + + | CK-MB | 0Comment: Testing | 0 - 3 % | [facility] | | | | performed by [facility], | | LABORATORY | | | | [address], | | | | | | [facility] [address] | | | | + + + + + + | CK-BB | 0Comment: Testing | 0 % | [facility] | | | | performed by [facility], | | LABORATORY | | | | [address] [facility], | | | | | | [facility] [address] | | | | + + + + + + | CK, Total | 156Comment: Testing | 24 - 173 U/L | [facility] | | | | performed at [facility], | | LABORATORY | | | | [address], | | | | | | [place] [address] | | | | + + + + + + | CK-MACRO | 0 | Not Observed % | [facility] | | | TYPE 1 | | | LABORATORY | | + + + + + + | CK-MACRO | 0Comment: Testing | Not Observed % | [facility] | | | TYPE II | performed by [facility], | | LABORATORY | | | | [address], | | | | | | [place] [address] | | | | + + + + + + + + | Specimen | + + | Blood | + + + + + + + | Performing | Address | City/State/Zipcode | Phone Number | | Organization | | | | + + + + + | [facility] | [address] | [place] [address] | [phone] | + + + + + Basic [...] 4 (L)Comment: GFR <60: | >60 | [facility] [...] | performed at [facility], [address] | | | | | | [facility], | | | | | | [place] [address] | | | | + + + + + + + + | Specimen | + + | Blood | + + + + + + + | Performing | Address | City/State/Zipcode | Phone Number | | Organization | | | | + + + + + | [facility] | [address] | [place] [address] | [phone] | + + + + + XR Chest AP Portable (01/24/2019 1:35 AM PST)Only the most recent of 4 [...] CHEST AP PORTABLE (01/07/2019); CHEST TWO VIEWS 14711 (01/06/2019); | | | FINDINGS: Mild cardiomegaly. [...] PORTABLE (01/07/2019); CHEST | | TWO VIEWS 38382 (01/06/2019); | | | | FINDINGS: | [...] + + | Performing | Address | City/State[facility] | Phone Number | | [...] (H)Comment: | 0 - 100 pg/mL | [facility] | | | | Testing performed at | | LABORATORY | | | | [facility];[address];[place] [address] | | | | + + + + + + + + | Specimen | + + | Blood | + + + + + + + | Performing | Address | City/State/Zipcode | Phone Number | | Organization | | | | + + + + + | [facility] | [address] | [place] [address] | [phone] | + + + + + Comprehensive [...] 5 (L)Comment: GFR <60: | >60 | [facility] [...] | | | | | performed at [facility];[address] | | | | | | [address] [facility];[place], [place] | | | | | | [address] | | | | + + + + + + + + | Specimen | + + | Blood | + + + + + + + | Performing | Address | City/State/Zipcode | Phone Number | | Organization | | | | + + + + + | [facility] | [address] [facility] | [place] [address] | [phone] | + + + + + XR [...] | | lung. Signed by: Eliza Marinelli, Pushpender Sign Date/Time: | | | 01/23/2019 [...] (01/07/2019); CHEST TWO | | | VIEWS 33030 (01/06/2019); XR CHEST AP PORTABLE (12/13/2018); | [...] CHEST AP PORTABLE (01/07/2019); CHEST TWO VIEWS 83009 (01/06/2019); XR | | CHEST AP PORTABLE [...] | | | | | ONLY, -COMPUTER (591), | | | | | | editor managing newspaper Daniela Luciano | | | | | [...] correct | | | patient, procedure, equipment, linux support engineer and site/side marked as | | | [...] space: 6th Puncture method: | | | wsaa-kbg-tomlbu catheter Number of attempts: 1 Drainage amount: [...] Testing | 65 - 99 mg/dL | [facility] | | | POC | performed at [facility];[address] | | LABORATORY | | | | [address] [facility];[place], [place] | | | | | | [address] | | | | + + + + + + + + | Specimen | + + | | + + + + + + + | Performing | Address | City/State/Zipcode | Phone Number | | Organization | | | | + + + + + | [facility] | [address] | [place] [address] | [phone] | + + + + + XR Chest PA and Lateral (01/09/2019 4:32 PM PST) + + | Specimen | + + | | + + + + + | Impressions | Performed At | + + + | Stable right sided opacity consistent with a large layering pleural | [facility] | | effusion and compressive atelectasis. Signed by: Pedro | | | Max Kay Date/Time: 01/09/2019 5:06 PM | | + + + + + + | Narrative | Performed At | + + + | CHEST PA AND LATERAL CLINICAL INFORMATION: Shortness of | [facility] | | breath. COMPARISON: CT CHEST WO CONTRAST (01/07/2019); XR CHEST AP | | | PORTABLE (01/07/2019); CHEST TWO VIEWS 89448 (01/06/2019); XR CHEST AP | | | [...] PORTABLE (01/07/2019); | | CHEST TWO VIEWS 00740 (01/06/2019); XR CHEST AP PORTABLE (12/13/2018); | [...] + + | Performing | Address | City/State/[facility] | Phone Number | | [...] | moderate volume ascites. Signed by: Eliza Galvan David | | | Sign Date/Time: 01/07/2019 4:27 [...] adenopathy. Upper Abdomen: The | | | [place] kidneys are atrophic. There is a small [...] No adenopathy. | | Upper Abdomen: The [place] kidneys are atrophic. There is a small [...] B | NON REACTIVEComment: | NR | [facility] | | | Surface Ag | Testing performed at | | LABORATORY | | | | [facility], [address] | | | | | | [place] | | | | | | [address] | | | | + + + + + + + + | Specimen | + + | Blood | + + + + + + + | Performing | Address | City/State/Zipcode | Phone Number | | Organization | | | | + + + + + | [facility] | [address] | [place] [address] | [phone] | + + + + + Thoracentesis [...] space: 6th Puncture method: | | | xspm-kca-sspivg catheter Needle size: 18 Catheter size: 18 [...] + | Billie Gupta MD 12/14/2018 9:54 [facility] | | | [facility] Hemo-Dialysis Procedure note Pt is [...] QB 450 AP | | | -200 Tennis Director 170 Constitutional: pt appears without distress. on [...] by: Onesimo | | | Fely Kay Sign Date/Time: 12/12/2018 5:27 PM | | [...] Special | Testing performed at | | [facility] | | | Requests | [facility];[address] | | LABORATORY | | | | [address];[place] [address] | | | | + + + + + + | RESULT | NO GROWTH 6 DAYS | | [facility] | | | | | | LABORATORY | | + + + + + + | RESULT | Testing performed at | | [facility] | | | | [facility], [address] [facility] | | LABORATORY | | | | [place] | | | | | | [address]Jacsrnh: Testing | | | | | | performed at [facility], [address] | | | | | [place] | | | | | | [address] | | | | + + + + + + + + | Specimen | + + | Blood - Peripheral | | blood specimen | | (specimen) | + + + + + + + | Performing | Address | City/State/Zipcode | Phone Number | | Organization | | | | + + + + + | [facility] | [address] | [place] [address] | [phone] | + + + + + C-Reactive Protein (12/12/2018 5:02 AM PDT) + + + + + + | Component | Value | Ref Range | Performed | Pathologist | | | | | At | Signature | + + + + + + | CRP | 8.6 (H)Comment: Testing | <0.5 mg/dL | [facility] | | | | performed at [facility], [address] | | LABORATORY | | | | [address], | | | | | | [place] [address] | | | | + + + + + + + + | Specimen | + + | Blood | + + + + + + + | Performing | Address | City/State/Zipcode | Phone Number | | Organization | | | | + + + + + | [facility] | [address] | [place] [address] | [phone] | + + + + + Influenza [...] | | | | | performed at [facility];[address] | | | | | | [address];[place], [place] | | | | | | [address] | | | | + + + + + + + + | Specimen | + + | | + + + + + + + | Performing | Address | City/State/Zipcode | Phone Number | | Organization | | | | + + + + + | [facility] | [address] | [place] [address] | [phone] | + + + + + FLU SWAB COLLECTION (12/11/2018 3:46 PM PDT) + + + + + + | Component | Value | Ref Range | Performed | Pathologist | | | | | At | Signature | + + + + + + | Collection | SPECIMEN RECEIVED IN | | [facility] | | | | LABComment: Testing | | LABORATORY | | | | performed at [facility];[address] | | | | | | [address];[place] | | | | | | [address] | | | | + + + + + + + + | Specimen | + + | Tissue - Entire | | nasopharynx (body | | structure) | + + + + + + + | Performing | Address | City/State/Zipcode | Phone Number | | Organization | | | | + + + + + | [facility] | [address] | [place] [address] | [phone] | + + + + + PTT (12/11/2018 8:06 AM PDT) + + + + + + | Component | Value | Ref Range | Performed | Pathologist | | | | | At | Signature | + + + + + + | PTT | 32Comment: Testing | 23 - 32 seconds | [facility] | | | | performed at [facility];[address] | | LABORATORY | | | | [facility], [place] | | | | | | [address] | | | | + + + + + + + + | Specimen | + + | Blood | + + + + + + + | Performing | Address | City/State/Zipcode | Phone Number | | Organization | | | | + + + + + | [facility] | [address] | [place] [address] | [phone] | + + + + + CT [...] LABORATORY | | | | performed at [facility];[address] | | | | | | [address];[place] | | | | | | [address] | | | | + + + + + + + + | Specimen | + + | | + + + + + + + | Performing | Address | City/State/Zipcode | Phone Number | | Organization | | | | + + + + + | [facility] | [address] | [place] [address] | [phone] | + + + + + Lactic [...] | | | Serum | performed at [facility];[address] | mmol/L | LABORATORY | | | [address];[place], [place] | | | | | | [address] | | | | + + + + + + + + | Specimen | + + | Blood | + + + + + + + | Performing | Address | City/State/Zipcode | Phone Number | | Organization | | | | + + + + + | [facility] | [address] | [place] [address] | [phone] | + + + + + Protime [...] | | | | | performed at [facility] | | | | | | [address] [facility];[place], [place] | | | | | | [address] | | | | + + + + + + + + | Specimen | + + | Blood | + + + + + + + | Performing | Address | City/State/Zipcode | Phone Number | | Organization | | | | + + + + + | [facility] | [address] | [place] [address] | [phone] | + + + + + from [...] +--------+ +---------+--------+ | MEDICARE | MEDICA | [id number] | 05/05/19 | [phone] | | Medica | | | RE | | 13-Pre | 5 | | re | | | PART A | | sent | | | | | | AND B | | | | | | + +--------+ +--------+ +---------+--------+ | MEDICARE | MEDICA | [id number] | 05/05/19 | [phone] | | Medica | | | RE | | 13-Pre | 5 | | re | | | PART A | | sent | | | | | | AND B | | | | | | + +--------+ +--------+ +---------+--------+ | [employer] | MODA | [id number] | | [phone] | | Medica | | MEDICAID HMO | HEALTH | | 019-Pr | 1 | | id | | | MDCD | | esent | | | | | | HMO OR | | | | | | + +--------+ +--------+ +---------+--------+ | [employer] | MODA | [id number] | | [phone] | | Medica | | MEDICAID HMO [...] APT | | | al/Fam | | 1996 | [phone] | [address] | | | [place] | | | 2 (Home) | [id number] | + +--------+ +--------+ + + | Dara Weldon | Person | Self [birth year] | [address] [place] | | | al/Fam | | 1994 | [phone] | [address] | | | [place] | | | 2 (Home) | [id number] | + +--------+ +--------+ + + | Cory Weldon | Person | Father [birth year] | [address] | | | al/Fam | | 1971 | [phone] | [place] [id number] | | | [place] | | | 9 (Home) | | + +--------+ +--------+ + + Advance Directives + + + + + | Type | Date Recorded | Patient | Explanation | | | | Engineering Surveyor | | + + + + + | Power of | 11/06/2018 7:27 | | | | | PM | | | + + [...]
--- OUTSIDE RECORDS SUMMARY | ~2019-02-17 | XMS | Encounter Summary ---
Demographics + + + | Address | [address] | | | [place] [address] | + + + | Home Phone [...] + + | Author | [facility] | | | and Josephana | + + + | Organization | [facility] | [...] Team Providers + +------+ + | Care Workers Compensation Coordinator Name | Role | Phone | + +------+ + | Jonathan Alonso MD | PCP | | + +------+ + Encounter Details +--------+ + + + + | Date | Type | Department | Care Team | Description | +--------+ + + + + | 10/08/ | Orders Only | [facility] | Provider, | Systolic congestive | | 2019 | | SYSTEM GENERIC OP | MD [address] | heart failure (HCC) | | | | CONVERSION [address] | [place]. | | | | | [address] [place], [place] | [place] [address] | | | | | [address] | | | | | | [phone] | | | +--------+ + + + [...] DAV[place]SON | | | | | | [place] [address] | | | | | | [phone] | | | | | | | | +--------+---------+ + + + + +------+--------+ + + | Name | Type | Priori | Associated Diagnoses | Order Schedule | | | | ty | | | + +------+--------+ + + | Comprehensive | Lab | Routin | Systolic | Expected: | | Metabolic Panel | | e | congestive heart | 06/14/2018, Expires: | | | | | failure (HCC) | 06/15/2019 | + +------+--------+ + + documented as of this encounter Visit Diagnoses + + | Diagnosis | + + | Systolic congestive heart failure (HCC) Unspecified systolic heart failure | + + documented in this encounter"
--- OUTSIDE RECORDS SUMMARY | ~2019-02-17 | XMS | Encounter Summary ---
Demographics + + + | Address | [address] | | | [place] [address] | + + + | Home Phone [...] | | | | | [place] [address] | | + + + + + | Thania Mallory | ECON | [address] | | | | | [place] [address] | | + + + + + | Deidra Weldon | ECON | [address] | | | | | [place] | | | | | [address] | | + + + + + Care Team Providers + +------+ + | Care Train Clerk Name | Role | Phone | [...] | Nephrology at | MD Emanuel [address] [facility] | Requested (UDS) | | | | [place] | [address] | | | | | [facility] | [place], [place] | | | | | [address] [facility] | [address] | | | | | Mailcode: DCH7 | [phone] | | | | | [place] | | | | | | [place], [place] | | | | | | [address] | | | | | | [phone] | | | +--------+ + + + [...] Denise | | | | | | [place], [place] | | | | | | [address] | | | | | | [phone] | | | | | | | | +--------+ + + + + documented as of this encounter Visit Diagnoses Not on filedocumented in this encounter"
--- OUTSIDE RECORDS SUMMARY | ~2019-02-17 | XMS | Encounter Summary ---
Demographics + + + | Address | [address] | | | [place] [address] | + + + | Home Phone [...] | Author | [facility] | | | and Josephana | + + + | Organization | [facility] | | | and Josephana [...] Team Providers + +------+ + | Care Forge Shop Machine Repairer Name | Role | Phone | [...] NEPHROLOGY [address] | M, DO [address] | | | | | [address] | [place] | | | | | [place], [place] | [place], [place] | | | | | [address] | [address] | | | | | [phone] | | | +--------+ + + + [...] of this encounter Progress Marilyn Jennings - 12/29/2016 3:48 PM PDTOutside records: [facility] confidential health information for Verna-Suresh RX 60.0MG/300.0MCG/10.0MG Tablet. Dos : 12/29/16. Sent to scan. P DTdocumented in this encounter Plan of Treatment +--------+---------+ + + + | Date | Type | Specialty | Care Team | Description | +--------+---------+ + + + | 03/05/ | Office | Pulmonology | Denny [place] | | | 2018 | Visit | | Deny Briggs MD [address] | | | | | | [address] | | | | | | [place] [address] | | | | | | [phone] | | | | | | | | +--------+---------+ + + + documented as of this encounter Visit Diagnoses Not on filedocumented in this encounter"
--- OUTSIDE RECORDS SUMMARY | ~2019-02-17 | XMS | Encounter Summary ---
Demographics + + + | Address | [address] | | | [place] [address] | + + + | Home Phone [...] Author | [facility] | | | and Josephana | + + + | Organization | [facility] | | | and Josephana | + + + | Address | Unknown | + + + | Phone | Unavailable | + + + Support + + +---------+ + | Name | Relationship | Address | Phone | + + +---------+ + | Thania Mallroy | ECON | Unknown | | + + +---------+ + | Saundra Mallory | ECON | Unknown | | + + +---------+ + Care Team Providers + +------+ + | Care Surgical Coder Name | Role | Phone | [...] | Encounter | JOY | MD Emanuel [address] | | | | | [address] | [facility] | | | | | [address] | [place], [place] | | | | | [place], [place] | [address] | | | | | [address] | [phone] | | | | | [phone] | | | +--------+ + + + [...] 03/05/ | Office | Pulmonology | Denny Alexandre | | | 2019 | Visit | | Dney Briggs MD [address] | | | | | | [address] | | | | | | [place] [address] | | | | | | [phone] | | | | | | | | +--------+---------+ + + + documented as of this encounter Visit Diagnoses Not on filedocumented in this encounter"
--- OUTSIDE RECORDS SUMMARY | ~2019-02-17 | XMS | Encounter Summary ---
Demographics + + + | Address | [address] | | | [place] [address] | + + + | Home Phone [...] Author | [facility] | | | and Josephana | + + + | Organization | [facility] | | [...] Team Providers + +------+ + | Care Devulcanizer Operator Name | Role | Phone | + +------+ + PCP | Unavailable | + +------+ + Encounter Details +--------+ + + + + | Date | Type | Department | Care Team | Description | +--------+ + + + + | 06/12/ | Hospital | [facility] | Conversion | | | 2015 | Encounter | [facility] | Transaction, | | | | | CLINIC [address] | Provider Unknown | | | | | [place], [place] | [phone] | | | | | [address] | | | | | | [phone] | | | +--------+ + + + [...] DAV[place]SON | | | | | | [place] [address] | | | | | | [phone] | | | | | | | [...] | | | Patient | performed at [facility];[address] | | LAB | | | | [address];[place], [place] | | | | | | [address] | | | | + + + [...] | | | | | | [address];[place], [place] | | | | | | [address] | | | | + + + [...] | | | | | | [place] [address] | | | | + + + + + + | RED CELL | 3.83Comment: Testing | 3.70 - 5.10 | EXTERNAL | | | COUNT | performed at [facility], [address] | M/uL | LAB | | | | [address], | | | | | | [place] [address] | | | | + + + + + + | Hgb | 13.6Comment: Testing | 11.3 - 15.5 | EXTERNAL | | | | performed at [facility], [address] | g/dL | LAB | | | | [address], | | | | | | [place] [address] | | | | + + + + + + | Hematocrit, | 40.5Comment: Testing | 34.0 - 46.0 % | EXTERNAL | | | POC | performed at [facility], [address] | | LAB | | | | [address], | | | | | | [place] [address] | | | | + + + + + + | MCV | 105.8 (H)Comment: | 80.0 - 100.0 fl | EXTERNAL | | | | Testing performed at | | LAB | | | | [facility], [address] [facility] | | | | | | [place] | | | | | | [address] | | | | + + + + + + | MCH | 35.6 (H)Comment: Testing | 27.0 - 34.0 pg | EXTERNAL | | | | performed at [facility], [address] | | LAB | | | | [address], | | | | | | [place] [address] | | | | + + + + + + | MCHC | 33.6Comment: Testing | 32.0 - 35.5 | EXTERNAL | | | | performed at [facility], [address] | g/dL | LAB | | | | [address], | | | | | | [place] [address] | | | | + + + + + + | RDW-CV | 50.3Comment: Testing | 37 - 53 fl | EXTERNAL | | | | performed at [facility], [address] | | LAB | | | | [address], | | | | | | [place] [address] | | | | + + + + + + | Platelet | 170Comment: Testing | 150 - 400 K/uL | EXTERNAL | | | Count | performed at [facility], [address] | | LAB | | | Plasma | [address], | | | | | | [place] [address] | | | | + + + + + + | MPV | 9.5Comment: Testing | fl | EXTERNAL | | | | performed at [facility], [address] | | LAB | | | | [address], | | | | | | [place] [address] | | | | + + + + + + | Differentia | AUTOMATEDComment: | | EXTERNAL | | | l Type | Testing performed at | | LAB | | | | [facility], [address] [facility] | | | | | | [place] | | | | | | [address] | | | | + + + + + + | % Segmented | 61.53Comment: Testing | % | EXTERNAL | | | | performed at [facility], [address] | | LAB | | | Neutrophils | [address], | | | | | | [place] [address] | | | | + + + + + + | % | 26.38Comment: Testing | % | EXTERNAL | | | Lymphocytes | performed at [facility], [address] | | LAB | | | | [address], | | | | | | [place] [address] | | | | + + + + + + | % Monocytes | 8.30Comment: Testing | % | EXTERNAL | | | | performed at [facility], [address] | | LAB | | | | [address], | | | | | | [place] [address] | | | | + + + + + + | % | 3.19Comment: Testing | % | EXTERNAL | | | Eosinophils | performed at [facility], [address] | | LAB | | | | [address], | | | | | | [place] [address] | | | | + + + + + + | % Basophils | 0.60Comment: Testing | % | EXTERNAL | | | | performed at [facility], [address] | | LAB | | | | [address], | | | | | | [place] [address] | | | | + + + + + + | Absolute | 5.44Comment: Testing | 1.90 - 7.40 | EXTERNAL | | | Segmented | performed at [facility], [address] | K/uL | LAB | | | Neutrophils | [address], | | | | | | [place] [address] | | | | + + + + + + | Absolute | 2.33Comment: Testing | 1.00 - 3.90 | EXTERNAL | | | Lymphocytes | performed at [facility], [address] | K/uL | LAB | | | | [address], | | | | | | [place] [address] | | | | + + + + + + | Absolute | 0.74Comment: Testing | 0.00 - 0.80 | EXTERNAL | | | Monocytes | performed at [facility], [address] | K/uL | LAB | | | | [address], | | | | | | [place] [address] | | | | + + + + + + | Absolute | 0.28Comment: Testing | 0.00 - 0.50 | EXTERNAL | | | Eosinophils | performed at [facility], [address] | K/uL | LAB | | | | [address], | | | | | | [place] [address] | | | | + + + + + + | Absolute | 0.05Comment: Testing | 0.00 - 0.10 | EXTERNAL | | | Basophils | performed at [facility], [address] | K/uL | LAB | | | | [address], | | | | | | [place] [address] | | | | + + + [...] | | | | | [place] [address] | | | | + + + + + + | K | 3.8Comment: Testing | 3.5 - 4.9 | EXTERNAL | | | | performed at [facility], [address] | mmol/L | LAB | | | | [address], | | | | | | [place] [address] | | | | + + + + + + | Cl | 94 (L)Comment: Testing | 99 - 109 mmol/L | EXTERNAL | | | | performed at [facility], [address] | | LAB | | | | [address], | | | | | | [place] [address] | | | | + + + + + + | CO2 | 31Comment: Testing | 23 - 32 mmol/L | EXTERNAL | | | | performed at [facility], [address] | | LAB | | | | [address], | | | | | | [place] [address] | | | | + + + + + + | Anion Gap | 13Comment: Testing | 5 - 20 mmol/L | EXTERNAL | | | | performed at [facility], [address] | | LAB | | | | [address], | | | | | | [place] [address] | | | | + + + + + + | Glucose, | 95Comment: Testing | 65 - 99 mg/dL | EXTERNAL | | | Fasting | performed at [facility], [address] | | LAB | | | | [address], | | | | | | [place] [address] | | | | + + + + + + | BUN | 40 (H)Comment: Testing | 8 - 25 mg/dL | EXTERNAL | | | | performed at [facility], [address] | | LAB | | | | [address], | | | | | | [place] [address] | | | | + + + + + + | Creatinine | 7.24 (H)Comment: Testing | 0.50 - 1.00 | EXTERNAL | | | | performed at [facility], [address] | mg/dL | LAB | | | | [address], | | | | | | [place] [address] | | | | + + + + + + | BUN/Creatin | 6Comment: Testing | | EXTERNAL | | | ine Ratio | performed at [facility], [address] | | LAB | | | | [address], | | | | | | [place] [address] | | | | + + + + + + | Calcium | 10.2Comment: Testing | 8.5 - 10.5 | EXTERNAL | | | | performed at [facility], [address] | mg/dL | LAB | | | | [facility], | | | | | | [place] [address] | | | | + + + + + + | Estimated | CALCULATION NOT | mL/min/1.73m2 | EXTERNAL | | | GFR | PERFORMED. RESULT NOT | | LAB | | | | VALID IF AGE LT 20 | | | | | | YEARS.Comment: Testing | | | | | | performed at [facility], [address] | | | | | | [facility], | | | | | | [place] [address] | | | | + + + [...] EXTERNAL LAB | | Testing performed at [address];[place] [address] MRSA PCR | | | NEGATIVE Testing performed at | | | [address];[place] [address] | | + + + + +---------+ + + | Performing | Address | City/State/Zipcode | Phone Number | | Organization | | | | + +---------+ + + | EXTERNAL LAB | | | | + +---------+ + + documented in this encounter Visit Diagnoses Not on filedocumented in this encounter"
--- OUTSIDE RECORDS SUMMARY | ~2019-02-17 | XMS | Encounter Summary ---
Demographics + + + | Address | [address] | | | [place] [address] | + + + | Home Phone [...] + + + | Author | [facility] | | | and [place]ana | + + + | Organization | [facility] | [...] Team Providers + +------+ + | Care Regional Sales Engineer Name | Role | Phone | [...] | | KIDNEY TRANSPLANT | [address] [place], | | | | | [address] [place] | [place] [address] | | | | | [address] [place] | [phone] | | | | | [address] | | | | | | [phone] | | | +--------+ + + + [...] DAV[place] | | | | | | [place] [address] | | | | | | [phone] | | | | | | | | +--------+---------+ + + + documented as of this encounter Visit Diagnoses Not on filedocumented in this encounter"
--- OUTSIDE RECORDS SUMMARY | ~2019-02-17 | XMS | Encounter Summary ---
Demographics + + + | Address | [address] | | | [place] [address] | + + + | Home Phone [...] | | | | | [place] [address] | | + + + + + | Thania Mallory | ECON | [address] | | | | | [place] [address] | | + + + + + | Deidra Weldon | ECON | [address] | | | | | [place] | | | | | [address] | | + + + + + Care Team Providers + +------+ + | Care Police Worker Name | Role | Phone | [...] | | | | | [place], | | | | | | [place] [address] | | | +--------+ + + + [...] Denise | | | | | | [place], [place] | | | | | | [address] | | | | | | [phone] | | | | | | | [...] DANILO - | [address], | [place] [address] | | | IMMUNOGENETICS/TRANS | [address] | | | | [facility] | | | | + + + + + documented in this encounter Visit Diagnoses Not on filedocumented in this encounter"
--- OUTSIDE RECORDS SUMMARY | ~2019-02-17 | XMS | Encounter Summary ---
Demographics + + + | Address | [address] | | | [place] [address] | + + + | Home Phone [...] | | | | | [place] [address] | | + + + + + | Thania Mallory | ECON | [address] | | | | | [place] [address] | | + + + + + | Deidra Weldon | ECON | [address] | | | | | [place] | | | | | [address] | | + + + + + Care Team Providers + +------+ + | Care Funeral Home Location Manager Name | Role | Phone | [...] | | | | | ANNALISA Hoffmann [facility] | [facility] Dustin | | | | | [place], [place] | [place], [place] | | | | | [address] | [address] | | | | | [phone] | [phone] | | | | | | | [...] Denise | | | | | | [place], [place] | | | | | | [address] | | | | | | [phone] | | | | | | | | +--------+ + + + + documented as of this encounter Visit Diagnoses Not on filedocumented in this encounter"
--- OUTSIDE RECORDS SUMMARY | ~2019-02-17 | XMS | Encounter Summary ---
Demographics + + + | Address | [address] | | | [place] [address] | + + + | Home Phone [...] | | | | | [place] [address] | | + + + + + | Thania Mallory | ECON | [address] | | | | | [place] [address] | | + + + + + | Deidra Weldon | ECON | [address] | | | | | [place] | | | | | [address] | | + + + + + Care Team Providers + +------+ + | Care Oracle Architect Name | Role | Phone | [...] | Update | | | | [address] [facility] | [facility] | | | | | Rd [place], [place] | [place], [place] | | | | | [address] | [address] | | | | | [phone] | | | +--------+ + + + [...] [place] | | | | | | [address] | | | | | | [phone] | | | | | | | | +--------+ + + + + documented as of this encounter Visit Diagnoses Not on filedocumented in this encounter"
--- OUTSIDE RECORDS SUMMARY | ~2019-02-17 | XMS | Encounter Summary ---
Demographics + + + | Address | [address] | | | [place] [address] | + + + | Home Phone [...] [facility] | | | and [place]ana | + + + | Organization | [facility] | | | and Josephana [...] Providers + +------+ + | Care Family Court Counsellor Name | Role | Phone | + [...] | NEPHROLOGY [address] | renal disease) ([facility]) | | | | [address] | [address] [place] | (Primary Dx); | | | | [place], [place] | [place] [address] | Depression | | | | [address] | [phone] | | | | | [phone] | | | +--------+ + + + [...] DAVIDSON | | | | | | [place] [address] | | | | | | [phone] | | | | | | | | +--------+---------+ + + + documented as of this encounter Visit Diagnoses + + | Diagnosis | + + | ESRD (end stage renal disease) (HCC) - Primary End stage renal disease | + + | Depression Depressive disorder, not elsewhere classified | + + documented in this encounter"
--- OUTSIDE RECORDS SUMMARY | ~2019-02-17 | XMS | Encounter Summary ---
Demographics + + + | Address | [address] | | | [place] [address] | + + + | Home Phone [...] | | | | | [place] [address] | | + + + + + | Thnaia Mallory | ECON | [address] | | | | | [place] [address] | | + + + + + | Deidra Weldon | ECON | [address] | | | | | [place] | | | | | [address] | | + + + + + Care Team Providers + +------+ + | Care Coating Supervisor Name | Role | Phone | [...] Everywher | | | | ANNALISA Hoffmann [facility] | [address] | Query) | | | | Rd [place], [place] | [place], [place] | | | | | [address] | [address] | | | | | [phone] | [phone] | | | | | | | [...] [place] | | | | | | [address] | | | | | | [phone] | | | | | | | | +--------+ + + + + documented as of this encounter Visit Diagnoses Not on filedocumented in this encounter"
--- OUTSIDE RECORDS SUMMARY | ~2019-02-17 | XMS | Encounter Summary ---
Demographics + + + | Address | [address] | | | [place] [address] | + + + | Home Phone [...] | | | | | [place] [address] | | + + + + + | Thania Mallory | ECON | [address] | | | | | [place] [address] | | + + + + + | Deidra Weldon | ECON | [address] | | | | | [place] | | | | | [address] | | + + + + + Care Team Providers + +------+ + | Care Director Data Processing Name | Role | Phone | + [...] | Nephrology at | MD Emanuel [address] [facility] | | | | | [place] | [facility] | | | | | [facility] | [place], [place] | | | | | [address] [facility] | [address] | | | | | Mailcode: DCH7 | [phone] | | | | | [place] | | | | | | [place], [place] | | | | | | [address] | | | | | | [phone] | | | +--------+ + + + [...] Ave | | | | | | [place], [place] | | | | | | [address] | | | | | | [phone] | | | | | | | [...]
--- OUTSIDE RECORDS SUMMARY | ~2019-02-17 | XMS | Encounter Summary ---
Demographics + + + | Address | [address] | | | [place] [address] | + + + | Home Phone [...] | | | | | [place] [address] | | + + + + + | Thania Mallory | ECON | [address] | | | | | [place] [address] | | + + + + + | Deidra Weldon | ECON | [address] | | | | | [place] | | | | | [address] | | + + + + + Care Team Providers + +------+ + | Care Historical Interpreter Name | Role | Phone | + [...] Hoffmann | | | | | [address] [facility] | [facility] | | | | | Rd [place], [place] | [place], [place] | | | | | [address] | [address] | | | | | [phone] | | | +--------+ + + + [...] Denise | | | | | | [place], [place] | | | | | | [address] | | | | | | [phone] | | | | | | | | +--------+ + + + + documented as of this encounter Visit Diagnoses Not on filedocumented in this encounter"
--- OUTSIDE RECORDS SUMMARY | ~2019-02-17 | XMS | Encounter Summary ---
Demographics + + + | Address | [address] | | | [place] [address] | + + + | Home Phone [...] | | | | | [place] [address] | | + + + + + | Thania Mallory | ECON | [address] | | | | | [place] [address] | | + + + + + | Deidra Weldon | ECON | [address] | | | | | [place] | | | | | [address] | | + + + + + Care Team Providers + +------+ + | Care Patient Liaison Name | Role | Phone | + [...] | 2013 | | [address] | [place], [place] | Update | | | | [address] [facility] | [address] | | | | | Rd [place], [place] | | | | | | [address] | | | | | | [phone] | | | +--------+ + + + [...] Denise | | | | | | [place], [place] | | | | | | [address] | | | | | | [phone] | | | | | | | | +--------+ + + + + documented as of this encounter Visit Diagnoses Not on filedocumented in this encounter"
--- OUTSIDE RECORDS SUMMARY | ~2019-02-17 | XMS | Encounter Summary ---
Demographics + + + | Address | [address] | | | [place] [address] | + + + | Home Phone [...] + | Author | [facility] | | | and [place]ana | + + + | Organization | [facility] | | | and Josephana | [...] Team Providers + +------+ + | Care Digester Operator Name | Role | Phone | [...] | NEPHROLOGY [address] | [address] | | | | | [address] | [address] [place] | | | | | [place], [place] | [place] [address] | | | | | [address] | [phone] | | | | | [phone] | | | +--------+--------+ + + + [...] | | | | | [place] [address] | | | | | | [phone] | | | | | | | | +--------+---------+ + + + documented as of this encounter Visit Diagnoses Not on filedocumented in this encounter"
--- OUTSIDE RECORDS SUMMARY | ~2019-02-17 | XMS | Encounter Summary ---
Demographics + + + | Address | [address] | | | [place] [address] | + + + | Home Phone [...] | Author | [facility] | | | and [place]ana | + + + | Organization | [facility] | [...] Team Providers + +------+ + | Care Glue Jointer Operator Name | Role | Phone | + +------+ + | Jonathan Alonso MD | PCP | | + +------+ + Encounter Details +--------+ + + + + | Date | Type | Department | Care Team | Description | +--------+ + + + + | 12/26/ | Orders Only | [facility] | Jon [place], | Generalized anxiety | | 2017 | | NEPHROLOGY [address] | Medical Student | disorder (Primary | | | | [address] | | Dx); Panic disorder | | | | [place], [place] | | | | | | [address] | | | | | | [phone] | | | +--------+ + + + [...] [place] | | | | | | [place] [address] | | | | | | [phone] | | | | | | | | +--------+---------+ + + + documented as of this encounter Visit Diagnoses + + | Diagnosis | + + | Generalized anxiety disorder - Primary | + + | Panic disorder Panic disorder without agoraphobia | + + documented in this encounter"
--- OUTSIDE RECORDS SUMMARY | ~2019-02-17 | XMS | Encounter Summary ---
Demographics + + + | Address | [address] | | | [place] [address] | + + + | Home Phone [...] | | | | | [place] [address] | | + + + + + | Thania Mallory | ECON | [address] | | | | | [place] [address] | | + + + + + | Deidra Weldon | ECON | [address] | | | | | [place] | | | | | [address] | | + + + + + Care Team Providers + +------+ + | Care Logging Rafter Laborer Name | Role | Phone | [...] Change (Close | | | | ANNALISA [facility] | [facility] | referral) | | | | [address] [place], [place] | [facility] [place] | | | | | [address] | [address] | | | | | [phone] | | | +--------+ + + + [...] [facility] | | | | | | [address] | | | | | | [phone] | | | | | | | | +--------+ + + + + documented as of this encounter Visit Diagnoses Not on filedocumented in this encounter"
--- OUTSIDE RECORDS SUMMARY | ~2019-02-17 | XMS | Encounter Summary ---
Demographics + + + | Address | [address] | | | [place] [address] | + + + | Home Phone [...] + + + | Author | [facility] | | | and Josephana | + + + | Organization | [facility] [...] Team Providers + +------+ + | Care Telephoner Name | Role | Phone | + [...] NEPHROLOGY [address] | M, DO [address] | | | | | [address] | [place] | | | | | [place], [place] | [place], [place] | | | | | [address] | [address] | | | | | [phone] | | | +--------+ + + + [...] encounter Progress Notes Jorje Camp DO - 08/17/2015 4:22 PM PDTNEPHROLOGY Dara has had large amount of "clots" from her AVF today, and thrombosis last week. An F -gram by Dr. Whaley last week, showed high grade, in stent stenosis, in her mid left upper arm AVF. FLOORLEADER today = 230 mmHg. In view of this will start her on ASA 81 mg, QD, and Plavix 75 mg, daily for prevention of AVF thrombosis, given the former indwelling stent. She was called by title clerk automobileElisabeth to begin above. : [facility] documented in this encounter Plan of Treatment +--------+---------+ + + + | Date | Type | Specialty | Care Team | Description | +--------+---------+ + + + | 03/05/ | Office | Pulmonology | Denny Alexander | | | 2019 | Visit | | Deny Briggs MD [address] | | | | | | [address] | | | | | | [place] [address] | | | | | | [phone] | | | | | | | | +--------+---------+ + + + documented as of this encounter Visit Diagnoses Not on filedocumented in this encounter
--- OUTSIDE RECORDS SUMMARY | ~2019-02-17 | XMS | Encounter Summary ---
Demographics + + + | Address | [address] | | | [place] [address] | + + + | Home Phone [...] Author | [facility] | | | and Josephana | + + + | Organization | [facility] | | | and [...] Team Providers + +------+ + | Care Mortarman Name | Role | Phone | + [...] | | | | | | [place] | | | | | | | [...] + + | 02/24/ | Anesthesia | [facility] | Celso Dacosta | Obesity (BMI | | 2013 | Event | [facility] | MD Douglas [address] | 30.0-34.9) (Primary | | | | [address] | [address] [place] | Dx) | | | | [place] | [address] | | | | | [address] | | | | | | [phone] | | | +--------+ + + + [...] +----+---+ + + | | 0 | [place] | | | | 7 | 43-degrees [...] +----+---+ + + | | 1 | [place] off | | | | 0 | [...] Exp SEV | + + | Exp AENL | + + | Air Flow Rate [...] | [READ | (present upon arrival to [facility]); | 02/24/14 1045 by | 05/28/18 1643 [...] | [READ | (present upon arrival to [facility]); | 02/24/14 1049 by | 05/28/18 1643 [...] [address] | | | | | | [place] [address] | | | | | | [phone] | | | | | | | [...]
--- OUTSIDE RECORDS SUMMARY | ~2019-02-17 | XMS | Encounter Summary ---
Demographics + + + | Address | [address] | | | [place] [address] | + + + | Home Phone [...] | Author | [facility] | | | and Josephana | + + + | Organization | [facility] | | | [...] Team Providers + +------+ + | Care Street Contractor Name | Role | Phone | [...] NEPHROLOGY [address] | M, DO [address] | | | | | [address] | [place] | | | | | [place], [place] | [place], [place] | | | | | [address] | [address] | | | | | [phone] | | | +--------+ + + + [...] through the Nephrology Se ction at either [facility] or [facility]? 6. Anemia--will continue the EPO at current dose and recheck the Fe stores next quarter. Plan: 1. Her PTH appears stable on a minimal dose of Hectorol. 2. Will continue to monitor her BP closely. 3. She appears very cooperative and collegial here in clinic. CC: Radisson Fina documented in thi s encounter Plan [...] [address] | | | | | | [place] [address] | | | | | | [phone] | | | | | | | | +--------+---------+ + + + documented as of this encounter Visit Diagnoses Not on filedocumented in this encounter"
--- OUTSIDE RECORDS SUMMARY | ~2019-02-17 | XMS | Encounter Summary ---
Demographics + + + | Address | [address] | | | [place] [address] | + + + | Home Phone [...] Author | [facility] | | | and Josephana | + + + | Organization | [facility] [...] Team Providers + +------+ + | Care Split Leather Department Supervisor Name | Role | Phone [...] | | stage renal | [address] | [address] [place] [address] | | | | | disease) | Shun Griffin | [place] | | | | | ([facility]) | [address] | [address] [place] | | | | | Anemia in | [place], [place] | [place] | | | | | ESRD | [address] | [address] Phone: | | | | | (end-stage | Phone: | [phone] | | | | | renal | [phone] | Fax: | | | | | disease) | Fax: | [phone] | | | | | ([facility]) | [phone] | | | | | | Procedures [...] | | [address] | [place] | (Primary Dx) | | | | [place], [place] | [place], [place] | | | | | [address] | [address] | | | | | [phone] | | | +--------+ + + + [...] She is see n on HD at [facility] with QB = 450. Unfortunately, she is consistently plagued by unexplained absenteeism from treatments. Despite having reliable transportation arranged b y the [employer]. She apparently still lacks meaningful plans for [...] last 3 mo. I think that her quechan Dry wt = 97.5 kg? 3. SHPTH--not [...] our office, myself or Dr. Ibarra. : [place] Fina Joy M.D., Pediatric Nephrology, [facility] documented in t his encounter [...] [address] | | | | | | [place] [address] | | | | | | [phone] | | | | | | | | +--------+---------+ + + + documented as of this encounter Visit Diagnoses + + | Diagnosis | + + | ESRD (end stage renal disease) (HCC) - Primary End stage renal disease | + + documented in this encounter"
--- OUTSIDE RECORDS SUMMARY | ~2019-02-17 | XMS | Encounter Summary ---
Demographics + + + | Address | [address] | | | [place] [address] | + + + | Home Phone [...] Author | [facility] [place] | | | and Josephana | + + + | Organization | [facility] [...] Team Providers + +------+ + | Care Snorkelling Instructor Name | Role | Phone | + +------+ + PCP | Unavailable | + +------+ + Encounter Details +--------+ + + + + | Date | Type | Department | Care Team | Description | +--------+ + + + + | 10/31/ | Hospital | [facility] | Conversion | ESRD (end stage | | 2015 | Encounter | [facility]ENTER [facility] OP | Transaction, | renal disease) on | | | | [address] | Provider Unknown | dialysis ([facility]) | | | | [place], [place] | [phone] | | | | | [address] | | | | | | [phone] | Colten Hutchins MD | | | | | | [address] | | | | | | [place], [place] | | | | | | [address] | | | | | | | [...] Progress Notes Conversion Transaction, Provider Unknown - 10/31/2014 5:35 PM PDTFormatting of this note m ight be different from the original. Nurse Progress Note by Bev Carroll RN at 10/31/14 798 Author: Bev Carroll RN Service: Interventional Radiology Author Type: Registered Chantell e Filed: 10/31/14 9866 Date of Service: 10/31/141734 Status: Signed Customer Consulting Manager: Bev Carroll RN (Registered Nurse) Sutures removed with slight tract oozing, will observe sites for 20 min before discharge,pt tolerated well. Discharge instructions given both written and orally, pt tolerating juice a nd crackers well with mother at bedside. Will d/c by wheelchair when criteria met. onver arturo Transaction, Provider Unknown - 10/31/2014 4:50 PM PDT Nurse Progress Note by Bev Carroll RN at 10/31/14 3905 Author: Bev Carroll, RN Service: Interventional Radiology Author Type: Registered Chantell rse Filed: 10/31/141649 Date of Service: 10/31/141649 Status: Signed Customer Consulting Manager: Bev Carroll RN (Registered Nurse) Attempted removal of suture/flowswitch, but immediately started bleeding at OP site, will t ry again in 30 minutes. docume nted in this encounter Plan of Treatment +--------+---------+ + + + | Date | Type | Specialty | Care Team | Description | +--------+---------+ + + + | 03/05/ | Office | Pulmonology | Denny Alexander | | | 2018 | Visit | | Deny Briggs MD [address] | | | | | [address] | | | | | | [place] [address] | | | | | | [phone] | | | | | | | | +--------+---------+ + + + documented as of this encounter Procedures + +--------+ + + + | Procedure Name | Priori | Date/Time | Associated Diagnosis | Comments | | | ty | | | | + +--------+ + + + | IR INJECTION | Routin | 10/31/2014 | | Results for this | | DIALYSIS CIRCUIT W | e | 3:50 PM | | procedure are in the | | THROMBECTOMY | | PDT | | results section. | + +--------+ + + + | IR INJECTION | Routin | 10/31/2014 | | Results for this | | DIALYSIS CIRCUIT W | e | 3:50 PM | | procedure are in the | | ANGIOPLASTY | | PDT | | results section. | + +--------+ + + + | IR INJECTION | Routin | 10/31/2014 | | Results for this | | DIALYSIS CIRCUIT | e | 3:50 PM | | procedure are in the | | | | PDT | | results section. | + +--------+ + + + | IR | Routin | 10/31/2014 | | Results for this | | ANGIOPLASTY/ATHERECT | e | 3:50 PM | | procedure are in the | | JOSE/STENT | | PDT | | results section. | + +--------+ + + + | US GUIDED VASCULAR | Routin | 10/31/2014 | | Results for this | | ACCESS | e | 3:47 PM | | procedure are in the | | | | PDT | | results section. | + +--------+ + + + documented in this encounter Results IR Angioplasty/Atherectomy/Stent (10/31/2014 3:50 PM PDT) + + | Specimen | + + | | + + + + + | Impressions | Performed At | + + + | Successful declotting of AV graft as described above requiring a | | | self-expanding stent the perianastomotic stenosis. Given the number of | | | interventions required over a fairly short time course following the | | | recently revised fistula, if further stenosis/thrombosis occur in | | | short time frame, additional interventions may be futile and catheter | | | placement may be necessary until a new AV permanent access can be | | | obtained. | | | 4:24 PM | | + + + + + + | Narrative | Performed At | + + + | IR DIALYSIS FISTULAGRAM dated 10/31/2014 3:50 PM CLINICAL DATA: | | | Left upper extremity fistula with perianastomotic multifocal stenosis | | | angioplastied with cutting balloon 3 days ago which thrombosed | | | yesterday COMPARISON STUDIES: 10/28/2014 PRIMARY FISCAL ANALYST: | | | Colten Hutchins MD, PhD, [facility] OPERATIONS: 1. Ultrasound-guided | | | antegrade venous access. 2. Ultrasound-guided retrograde venous | | | access 3. Chemical thrombolysis 4. Rheolytic thrombectomy 5. | | | Balloon angioplasty and cutting balloon angioplasty of the cephalic | | | vein 6. Cephalic perianastomotic venous stent placement | | | PROCEDURE: Informed consent was obtained from the patient. | | | Continuous cardiac monitoring was performed throughout the | | | procedure. Conscious sedation was provided by the nursing staff | | | during the procedure under my supervision. Sedation time:180 | | | minutes Medications: 5.5 mg Versed IV, 175 mcg Fentanyl IV, 50 mg | | | Benadryl IV, 2.5 mg Dilaudid IV, 9000 units heparin IV, 5 mg TPA IV | | | within the thrombosed fistula Contrast:80 cc Isovue 250 | | | Fluoroscopy time:10.6 minutes Radiation dose:33 mGy air kerma | | | Patient was sterilely prepped and draped in usual fashion. Grayscale | | | ultrasound was used to assess the graft which did appear thrombosed. A | | | site was selected on the lower aspect of the left upper extremity | | | brachiocephalic fistula and the skin was locally anesthetized with | | | 1% lidocaine. Micropuncture access was obtained and the sheath was | | | placed. A site was then selected higher on the arm for retrograde | | | access. The skin was locally anesthetized with 1% lidocaine. Real-time | | | ultrasound guided micropuncture sheath access was obtained. The | | | microsheath were both exchanged for 6 Brazilian sheaths. A catheter was | | | advanced over a wire via the antegrade access into the subclavian vein | | | and then withdrawn for pullback angiography demonstrating area of | | | thrombosis in the upper cephalic vein. An AngioJet rheolytic | | | thrombectomy catheter was advanced first antegrade then retrograde and | | | pulse infusion of a total of 4 mg of TPA was performed and allowed to | | | dwell for 10 minutes. AngioJet was then actuated in both antegrade | | | and retrograde access sites multiple times with intermittent | | | angiography via the sheaths. Improvement in the clot burden in the | | | upper portion of the venous outflow was noted. Via the retrograde | | | sheath, a diagnostic catheter was advanced into the distal brachial | | | artery and a Chinmay balloon was inflated and pulled back through the | | | anastomosis. The catheter was then advanced into the proximal brachial | | | artery and angiogram was performed which showed continued occlusion. | | | Several more rounds of rheolytic thrombectomy were performed. A 7 mm | | | angioplasty balloon was inflated in the upper study portion of the | | | cephalic venous outflow to macerate residual thrombus. At the known | | | perianastomotic stenosis, a 5 mm angioplasty balloon was inflated. | | | Gradual improvement in flow was noted. However, a severe stenosis in | | | the perianastomotic area was still flow limiting. A 5 mm cutting | | | angioplasty balloon was inflated multiple times with slight | | | improvement but still demonstrating flow limitation. At this point | | | in the procedure and proximal graft and discussed the findings with | | | Dr. Simon, patient's vascular surgeon who placed the fistula. After the | | | usual agreement, decision was made to place a stent over the | | | perianastomotic stenosis. A 6 mm x 4 cm Epic self-expanding stent | | | was positioned and deployed such that it extended from the | | | arteriovenous anastomosis across the perianastomotic stenosis. This | | | was postdilated under low pressure with a 7 mm balloon at 2 rommel. Final | | | angiogram via the brachial artery demonstrated good outflow with | | | resolution of the thrombus within the fistula. Temporary pursestring | | | sutures were placed and the sheath were both removed with immediate | | | hemostasis. Patient tolerated procedure well. FINDINGS: The | | | left upper extremity AV brachiocephalic fistula is thrombosed by | | | ultrasound. After obtaining antegrade and retrograde access, pullback | | | angiography demonstrates thrombus beginning at the cephalic arch. A | | | smooth apparent stenosis is present at the proximal aspect of the | | | cephalic arch which may be positional and did not appear to represent | | | true stenosis. Following interventions as described above, final | | | angiographic result demonstrates resolution of the thrombus within the | | | AV graft, maintenance of arterial flow without evidence of distal | | | localization, and consistent positioning with the stent extending from | | | the arteriovenous anastomosis across the area of perianastomotic | | | stenosis. | | + + + + + | Procedure Note | + + | Cedric, Rad Conversion - 10/19/2018 6:38 AM PDT IR DIALYSIS FISTULAGRAM dated 10/31/2014 | | 3:50 PM CLINICAL DATA: Left upper extremity fistula with perianastomotic multifocal | | stenosis angioplastied with cutting balloon 3 days ago which thrombosed yesterday | | COMPARISON STUDIES: 10/28/2014 PRIMARY FISCAL ANALYST: Colten Hutchins MD, PhD, [facility] | | OPERATIONS:1. Ultrasound-guided antegrade venous access.2. Ultrasound-guided | | retrograde venous access3. Chemical thrombolysis4. Rheolytic thrombectomy5. Balloon | | angioplasty and cutting balloon angioplasty of the cephalic vein6. Cephalic | | perianastomotic venous stent placement PROCEDURE: Informed consent was obtained from the | | patient. Continuous cardiac monitoring was performed throughout the procedure. | | Conscious sedation was provided by the nursing staff during the procedure under my | | supervision. Sedation time:180 minutesMedications: 5.5 mg Versed IV, 175 mcg Fentanyl | | IV, 50 mg Benadryl IV, 2.5 mg Dilaudid IV, 9000 units heparin IV, 5 mg TPA IV within the | | thrombosed fistula Contrast:80 cc Isovue 250Fluoroscopy time:10.6 minutesRadiation | | dose:33 mGy air kerma Patient was sterilely prepped and draped in usual fashion. | | Grayscale ultrasound was used to assess the graft which did appear thrombosed. A site | | was selected on the lower aspect of the left upper extremity brachiocephalic fistula and | | the skin was locally anesthetized with 1% lidocaine. Micropuncture access was obtained | | and the sheath was placed. A site was then selected higher on the arm for retrograde | | access. The skin was locally anesthetized with 1% lidocaine. Real-time ultrasound guided | | micropuncture sheath access was obtained. The microsheath were both exchanged for 6 | | Brazilian sheaths. A catheter was advanced over a wire via the antegrade access into the | | subclavian vein and then withdrawn for pullback angiography demonstrating area of | | thrombosis in the upper cephalic vein. An AngioJet rheolytic thrombectomy catheter was | | advanced first antegrade then retrograde and pulse infusion of a total of 4 mg of TPA | | was performed and allowed to dwell for 10 minutes. AngioJet was then actuated in both | | antegrade and retrograde access sites multiple times with intermittent angiography via | | the sheaths. Improvement in the clot burden in the upper portion of the venous outflow | | was noted. Via the retrograde sheath, a diagnostic catheter was advanced into the distal | | brachial artery and a Chinmay balloon was inflated and pulled back through the | | anastomosis. The catheter was then advanced into the proximal brachial artery and | | angiogram was performed which showed continued occlusion. Several more rounds of | | rheolytic thrombectomy were performed. A 7 mm angioplasty balloon was inflated in the | | upper study portion of the cephalic venous outflow to macerate residual thrombus. At the | | known perianastomotic stenosis, a 5 mm angioplasty balloon was inflated. Gradual | | improvement in flow was noted. However, a severe stenosis in the perianastomotic area | | was still flow limiting. A 5 mm cutting angioplasty balloon was inflated multiple times | | with slight improvement but still demonstrating flow limitation. At this point in the | | procedure and proximal graft and discussed the findings with Dr. Simon, patient's vascular | | surgeon who placed the fistula. After the usual agreement, decision was made to place a | | stent over the perianastomotic stenosis. A 6 mm x 4 cm Epic self-expanding stent was | | positioned and deployed such that it extended from the arteriovenous anastomosis across | | the perianastomotic stenosis. This was postdilated under low pressure with a 7 mm | | balloon at 2 rommel. Final angiogram via the brachial artery demonstrated good outflow with | | resolution of the thrombus within the fistula. Temporary pursestring sutures were | | placed and the sheath were both removed with immediate hemostasis. Patient tolerated | | procedure well. FINDINGS: The left upper extremity AV brachiocephalic fistula is | | thrombosed by ultrasound. After obtaining antegrade and retrograde access, pullback | | angiography demonstrates thrombus beginning at the cephalic arch. A smooth apparent | | stenosis is present at the proximal aspect of the cephalic arch which may be positional | | and did not appear to represent true stenosis. Following interventions as described | | above, final angiographic result demonstrates resolution of the thrombus within the AV | | graft, maintenance of arterial flow without evidence of distal localization, and | | consistent positioning with the stent extending from the arteriovenous anastomosis | | across the area of perianastomotic stenosis. IMPRESSION: Successful declotting of AV | | graft as described above requiring a self-expanding stent the perianastomotic stenosis. | | Given the number of interventions required over a fairly short time course following the | | recently revised fistula, if further stenosis/thrombosis occur in short time frame, | | additional interventions may be futile and catheter placement may be necessary until a | | new AV permanent access can be obtained. Electronically signed by Colten Hutchins MD on | | 10/31/2014 4:24 PM | + + IR Inj Dialysis Circuit w Angioplasty (10/31/2014 3:50 PM PDT) + + | Specimen | + + | | + + + + + | Impressions | Performed At | + + + | Successful declotting of AV graft as described above requiring a | | | self-expanding stent the perianastomotic stenosis. Given the number of | | | interventions required over a fairly short time course following the | | | recently revised fistula, if further stenosis/thrombosis occur in | | | short time frame, additional interventions may be futile and catheter | | | placement may be necessary until a new AV permanent access can be | | | obtained. | | | 4:24 PM | | + + + + + + | Narrative | Performed At | + + + | IR DIALYSIS FISTULAGRAM dated 10/31/2014 3:50 PM CLINICAL DATA: | | | Left upper extremity fistula with perianastomotic multifocal stenosis | | | angioplastied with cutting balloon 3 days ago which thrombosed | | | yesterday COMPARISON STUDIES: 10/28/2014 PRIMARY FISCAL ANALYST: | | | Colten Hutchins MD, PhD, [facility] OPERATIONS: 1. Ultrasound-guided | | | antegrade venous access. 2. Ultrasound-guided retrograde venous | | | access 3. Chemical thrombolysis 4. Rheolytic thrombectomy 5. | | | Balloon angioplasty and cutting balloon angioplasty of the cephalic | | | vein 6. Cephalic perianastomotic venous stent placement | | | PROCEDURE: Informed consent was obtained from the patient. | | | Continuous cardiac monitoring was performed throughout the | | | procedure. Conscious sedation was provided by the nursing staff | | | during the procedure under my supervision. Sedation time:180 | | | minutes Medications: 5.5 mg Versed IV, 175 mcg Fentanyl IV, 50 mg | | | Benadryl IV, 2.5 mg Dilaudid IV, 9000 units heparin IV, 5 mg TPA IV | | | within the thrombosed fistula Contrast:80 cc Isovue 250 | | | Fluoroscopy time:10.6 minutes Radiation dose:33 mGy air kerma | | | Patient was sterilely prepped and draped in usual fashion. Grayscale | | | ultrasound was used to assess the graft which did appear thrombosed. A | | | site was selected on the lower aspect of the left upper extremity | | | brachiocephalic fistula and the skin was locally anesthetized with | | | 1% lidocaine. Micropuncture access was obtained and the sheath was | | | placed. A site was then selected higher on the arm for retrograde | | | access. The skin was locally anesthetized with 1% lidocaine. Real-time | | | ultrasound guided micropuncture sheath access was obtained. The | | | microsheath were both exchanged for 6 Brazilian sheaths. A catheter was | | | advanced over a wire via the antegrade access into the subclavian vein | | | and then withdrawn for pullback angiography demonstrating area of | | | thrombosis in the upper cephalic vein. An AngioJet rheolytic | | | thrombectomy catheter was advanced first antegrade then retrograde and | | | pulse infusion of a total of 4 mg of TPA was performed and allowed to | | | dwell for 10 minutes. AngioJet was then actuated in both antegrade | | | and retrograde access sites multiple times with intermittent | | | angiography via the sheaths. Improvement in the clot burden in the | | | upper portion of the venous outflow was noted. Via the retrograde | | | sheath, a diagnostic catheter was advanced into the distal brachial | | | artery and a Chinmay balloon was inflated and pulled back through the | | | anastomosis. The catheter was then advanced into the proximal brachial | | | artery and angiogram was performed which showed continued occlusion. | | | Several more rounds of rheolytic thrombectomy were performed. A 7 mm | | | angioplasty balloon was inflated in the upper study portion of the | | | cephalic venous outflow to macerate residual thrombus. At the known | | | perianastomotic stenosis, a 5 mm angioplasty balloon was inflated. | | | Gradual improvement in flow was noted. However, a severe stenosis in | | | the perianastomotic area was still flow limiting. A 5 mm cutting | | | angioplasty balloon was inflated multiple times with slight | | | improvement but still demonstrating flow limitation. At this point | | | in the procedure and proximal graft and discussed the findings with | | | Dr. Simon, patient's vascular surgeon who placed the fistula. After the | | | usual agreement, decision was made to place a stent over the | | | perianastomotic stenosis. A 6 mm x 4 cm Epic self-expanding stent | | | was positioned and deployed such that it extended from the | | | arteriovenous anastomosis across the perianastomotic stenosis. This | | | was postdilated under low pressure with a 7 mm balloon at 2 rommel. Final | | | angiogram via the brachial artery demonstrated good outflow with | | | resolution of the thrombus within the fistula. Temporary pursestring | | | sutures were placed and the sheath were both removed with immediate | | | hemostasis. Patient tolerated procedure well. FINDINGS: The | | | left upper extremity AV brachiocephalic fistula is thrombosed by | | | ultrasound. After obtaining antegrade and retrograde access, pullback | | | angiography demonstrates thrombus beginning at the cephalic arch. A | | | smooth apparent stenosis is present at the proximal aspect of the | | | cephalic arch which may be positional and did not appear to represent | | | true stenosis. Following interventions as described above, final | | | angiographic result demonstrates resolution of the thrombus within the | | | AV graft, maintenance of arterial flow without evidence of distal | | | localization, and consistent positioning with the stent extending from | | | the arteriovenous anastomosis across the area of perianastomotic | | | stenosis. | | + + + + + | Procedure Note | + + | Cedric Rad Conversion - 10/19/2018 6:38 AM PDT IR DIALYSIS FISTULAGRAM dated 10/31/2014 | | 3:50 PM CLINICAL DATA: Left upper extremity fistula with perianastomotic multifocal | | stenosis angioplastied with cutting balloon 3 days ago which thrombosed yesterday | | COMPARISON STUDIES: 10/28/2014 PRIMARY FISCAL ANALYST: Colten Hutchins MD, PhD, [facility] | | OPERATIONS:1. Ultrasound-guided antegrade venous access.2. Ultrasound-guided | | retrograde venous access3. Chemical thrombolysis4. Rheolytic thrombectomy5. Balloon | | angioplasty and cutting balloon angioplasty of the cephalic vein6. Cephalic | | perianastomotic venous stent placement PROCEDURE: Informed consent was obtained from the | | patient. Continuous cardiac monitoring was performed throughout the procedure. | | Conscious sedation was provided by the nursing staff during the procedure under my | | supervision. Sedation time:180 minutesMedications: 5.5 mg Versed IV, 175 mcg Fentanyl | | IV, 50 mg Benadryl IV, 2.5 mg Dilaudid IV, 9000 units heparin IV, 5 mg TPA IV within the | | thrombosed fistula Contrast:80 cc Isovue 250Fluoroscopy time:10.6 minutesRadiation | | dose:33 mGy air kerma Patient was sterilely prepped and draped in usual fashion. | | Grayscale ultrasound was used to assess the graft which did appear thrombosed. A site | | was selected on the lower aspect of the left upper extremity brachiocephalic fistula and | | the skin was locally anesthetized with 1% lidocaine. Micropuncture access was obtained | | and the sheath was placed. A site was then selected higher on the arm for retrograde | | access. The skin was locally anesthetized with 1% lidocaine. Real-time ultrasound guided | | micropuncture sheath access was obtained. The microsheath were both exchanged for 6 | | Brazilian sheaths. A catheter was advanced over a wire via the antegrade access into the | | subclavian vein and then withdrawn for pullback angiography demonstrating area of | | thrombosis in the upper cephalic vein. An AngioJet rheolytic thrombectomy catheter was | | advanced first antegrade then retrograde and pulse infusion of a total of 4 mg of TPA | | was performed and allowed to dwell for 10 minutes. AngioJet was then actuated in both | | antegrade and retrograde access sites multiple times with intermittent angiography via | | the sheaths. Improvement in the clot burden in the upper portion of the venous outflow | | was noted. Via the retrograde sheath, a diagnostic catheter was advanced into the distal | | brachial artery and a Chinmay balloon was inflated and pulled back through the | | anastomosis. The catheter was then advanced into the proximal brachial artery and | | angiogram was performed which showed continued occlusion. Several more rounds of | | rheolytic thrombectomy were performed. A 7 mm angioplasty balloon was inflated in the | | upper study portion of the cephalic venous outflow to macerate residual thrombus. At the | | known perianastomotic stenosis, a 5 mm angioplasty balloon was inflated. Gradual | | improvement in flow was noted. However, a severe stenosis in the perianastomotic area | | was still flow limiting. A 5 mm cutting angioplasty balloon was inflated multiple times | | with slight improvement but still demonstrating flow limitation. At this point in the | | procedure and proximal graft and discussed the findings with Dr. Simon, patient's vascular | | surgeon who placed the fistula. After the usual agreement, decision was made to place a | | stent over the perianastomotic stenosis. A 6 mm x 4 cm Epic self-expanding stent was | | positioned and deployed such that it extended from the arteriovenous anastomosis across | | the perianastomotic stenosis. This was postdilated under low pressure with a 7 mm | | balloon at 2 rommel. Final angiogram via the brachial artery demonstrated good outflow with | | resolution of the thrombus within the fistula. Temporary pursestring sutures were | | placed and the sheath were both removed with immediate hemostasis. Patient tolerated | | procedure well. FINDINGS: The left upper extremity AV brachiocephalic fistula is | | thrombosed by ultrasound. After obtaining antegrade and retrograde access, pullback | | angiography demonstrates thrombus beginning at the cephalic arch. A smooth apparent | | stenosis is present at the proximal aspect of the cephalic arch which may be positional | | and did not appear to represent true stenosis. Following interventions as described | | above, final angiographic result demonstrates resolution of the thrombus within the AV | | graft, maintenance of arterial flow without evidence of distal localization, and | | consistent positioning with the stent extending from the arteriovenous anastomosis | | across the area of perianastomotic stenosis. IMPRESSION: Successful declotting of AV | | graft as described above requiring a self-expanding stent the perianastomotic stenosis. | | Given the number of interventions required over a fairly short time course following the | | recently revised fistula, if further stenosis/thrombosis occur in short time frame, | | additional interventions may be futile and catheter placement may be necessary until a | | new AV permanent access can be obtained. Electronically signed by Colten Hutchins MD on | | 10/31/2014 4:24 PM | + + IR Inj Dialysis Circuit w Thrombectomy (10/31/2014 3:50 PM PDT) + + | Specimen | + + | | + + + + + | Impressions | Performed At | + + + | Successful declotting of AV graft as described above requiring a | | | self-expanding stent the perianastomotic stenosis. Given the number of | | | interventions required over a fairly short time course following the | | | recently revised fistula, if further stenosis/thrombosis occur in | | | short time frame, additional interventions may be futile and catheter | | | placement may be necessary until a new AV permanent access can be | | | obtained. | | | 4:24 PM | | + + + + + + | Narrative | Performed At | + + + | IR DIALYS[facility] dated 10/31/2014 3:50 PM CLINICAL DATA: | | | Left upper extremity fistula with perianastomotic multifocal stenosis | | | angioplastied with cutting balloon 3 days ago which thrombosed | | | yesterday COMPARISON STUDIES: 10/28/2014 PRIMARY FISCAL ANALYST: | | | Colten Hutchins MD, PhD, [facility] OPERATIONS: 1. Ultrasound-guided | | | antegrade venous access. 2. Ultrasound-guided retrograde venous | | | access 3. Chemical thrombolysis 4. Rheolytic thrombectomy 5. | | | Balloon angioplasty and cutting balloon angioplasty of the cephalic | | | vein 6. Cephalic perianastomotic venous stent placement | | | PROCEDURE: Informed consent was obtained from the patient. | | | Continuous cardiac monitoring was performed throughout the | | | procedure. Conscious sedation was provided by the nursing staff | | | during the procedure under my supervision. Sedation time:180 | | | minutes Medications: 5.5 mg Versed IV, 175 mcg Fentanyl IV, 50 mg | | | Benadryl IV, 2.5 mg Dilaudid IV, 9000 units heparin IV, 5 mg TPA IV | | | within the thrombosed fistula Contrast:80 cc Isovue 250 | | | Fluoroscopy time:10.6 minutes Radiation dose:33 mGy air kerma | | | Patient was sterilely prepped and draped in usual fashion. Grayscale | | | ultrasound was used to assess the graft which did appear thrombosed. A | | | site was selected on the lower aspect of the left upper extremity | | | brachiocephalic fistula and the skin was locally anesthetized with | | | 1% lidocaine. Micropuncture access was obtained and the sheath was | | | placed. A site was then selected higher on the arm for retrograde | | | access. The skin was locally anesthetized with 1% lidocaine. Real-time | | | ultrasound guided micropuncture sheath access was obtained. The | | | microsheath were both exchanged for 6 Brazilian sheaths. A catheter was | | | advanced over a wire via the antegrade access into the subclavian vein | | | and then withdrawn for pullback angiography demonstrating area of | | | thrombosis in the upper cephalic vein. An AngioJet rheolytic | | | thrombectomy catheter was advanced first antegrade then retrograde and | | | pulse infusion of a total of 4 mg of TPA was performed and allowed to | | | dwell for 10 minutes. AngioJet was then actuated in both antegrade | | | and retrograde access sites multiple times with intermittent | | | angiography via the sheaths. Improvement in the clot burden in the | | | upper portion of the venous outflow was noted. Via the retrograde | | | sheath, a diagnostic catheter was advanced into the distal brachial | | | artery and a Chinmay balloon was inflated and pulled back through the | | | anastomosis. The catheter was then advanced into the proximal brachial | | | artery and angiogram was performed which showed continued occlusion. | | | Several more rounds of rheolytic thrombectomy were performed. A 7 mm | | | angioplasty balloon was inflated in the upper study portion of the | | | cephalic venous outflow to macerate residual thrombus. At the known | | | perianastomotic stenosis, a 5 mm angioplasty balloon was inflated. | | | Gradual improvement in flow was noted. However, a severe stenosis in | | | the perianastomotic area was still flow limiting. A 5 mm cutting | | | angioplasty balloon was inflated multiple times with slight | | | improvement but still demonstrating flow limitation. At this point | | | in the procedure and proximal graft and discussed the findings with | | | Dr. Simon, patient's vascular surgeon who placed the fistula. After the | | | usual agreement, decision was made to place a stent over the | | | perianastomotic stenosis. A 6 mm x 4 cm Epic self-expanding stent | | | was positioned and deployed such that it extended from the | | | arteriovenous anastomosis across the perianastomotic stenosis. This | | | was postdilated under low pressure with a 7 mm balloon at 2 rommel. Final | | | angiogram via the brachial artery demonstrated good outflow with | | | resolution of the thrombus within the fistula. Temporary pursestring | | | sutures were placed and the sheath were both removed with immediate | | | hemostasis. Patient tolerated procedure well. FINDINGS: The | | | left upper extremity AV brachiocephalic fistula is thrombosed by | | | ultrasound. After obtaining antegrade and retrograde access, pullback | | | angiography demonstrates thrombus beginning at the cephalic arch. A | | | smooth apparent stenosis is present at the proximal aspect of the | | | cephalic arch which may be positional and did not appear to represent | | | true stenosis. Following interventions as described above, final | | | angiographic result demonstrates resolution of the thrombus within the | | | AV graft, maintenance of arterial flow without evidence of distal | | | localization, and consistent positioning with the stent extending from | | | the arteriovenous anastomosis across the area of perianastomotic | | | stenosis. | | + + + + + | Procedure Note | + + | Cedric, Rad Conversion - 10/19/2018 6:38 AM PDT IR [facility]IALYS[facility] dated 10/31/2014 | | 3:50 PM CLINICAL DATA: Left upper extremity fistula with perianastomotic multifocal | | stenosis angioplastied with cutting balloon 3 days ago which thrombosed yesterday | | COMPARISON STUDIES: 10/28/2014 PRIMARY FISCAL ANALYST: Colten Hutchins MD, PhD, [facility] | | OPERATIONS:1. Ultrasound-guided antegrade venous access.2. Ultrasound-guided | | retrograde venous access3. Chemical thrombolysis4. Rheolytic thrombectomy5. Balloon | | angioplasty and cutting balloon angioplasty of the cephalic vein6. Cephalic | | perianastomotic venous stent placement PROCEDURE: Informed consent was obtained from the | | patient. Continuous cardiac monitoring was performed throughout the procedure. | | Conscious sedation was provided by the nursing staff during the procedure under my | | supervision. Sedation time:180 minutesMedications: 5.5 mg Versed IV, 175 mcg Fentanyl | | IV, 50 mg Benadryl IV, 2.5 mg Dilaudid IV, 9000 units heparin IV, 5 mg TPA IV within the | | thrombosed fistula Contrast:80 cc Isovue 250Fluoroscopy time:10.6 minutesRadiation | | dose:33 mGy air kerma Patient was sterilely prepped and draped in usual fashion. | | Grayscale ultrasound was used to assess the graft which did appear thrombosed. A site | | was selected on the lower aspect of the left upper extremity brachiocephalic fistula and | | the skin was locally anesthetized with 1% lidocaine. Micropuncture access was obtained | | and the sheath was placed. A site was then selected higher on the arm for retrograde | | access. The skin was locally anesthetized with 1% lidocaine. Real-time ultrasound guided | | micropuncture sheath access was obtained. The microsheath were both exchanged for 6 | | Brazilian sheaths. A catheter was advanced over a wire via the antegrade access into the | | subclavian vein and then withdrawn for pullback angiography demonstrating area of | | thrombosis in the upper cephalic vein. An AngioJet rheolytic thrombectomy catheter was | | advanced first antegrade then retrograde and pulse infusion of a total of 4 mg of TPA | | was performed and allowed to dwell for 10 minutes. AngioJet was then actuated in both | | antegrade and retrograde access sites multiple times with intermittent angiography via | | the sheaths. Improvement in the clot burden in the upper portion of the venous outflow | | was noted. Via the retrograde sheath, a diagnostic catheter was advanced into the distal | | brachial artery and a Chinmay balloon was inflated and pulled back through the | | anastomosis. The catheter was then advanced into the proximal brachial artery and | | angiogram was performed which showed continued occlusion. Several more rounds of | | rheolytic thrombectomy were performed. A 7 mm angioplasty balloon was inflated in the | | upper study portion of the cephalic venous outflow to macerate residual thrombus. At the | | known perianastomotic stenosis, a 5 mm angioplasty balloon was inflated. Gradual | | improvement in flow was noted. However, a severe stenosis in the perianastomotic area | | was still flow limiting. A 5 mm cutting angioplasty balloon was inflated multiple times | | with slight improvement but still demonstrating flow limitation. At this point in the | | procedure and proximal graft and discussed the findings with Dr. Simon, patient's vascular | | surgeon who placed the fistula. After the usual agreement, decision was made to place a | | stent over the perianastomotic stenosis. A 6 mm x 4 cm Epic self-expanding stent was | | positioned and deployed such that it extended from the arteriovenous anastomosis across | | the perianastomotic stenosis. This was postdilated under low pressure with a 7 mm | | balloon at 2 rommel. Final angiogram via the brachial artery demonstrated good outflow with | | resolution of the thrombus within the fistula. Temporary pursestring sutures were | | placed and the sheath were both removed with immediate hemostasis. Patient tolerated | | procedure well. FINDINGS: The left upper extremity AV brachiocephalic fistula is | | thrombosed by ultrasound. After obtaining antegrade and retrograde access, pullback | | angiography demonstrates thrombus beginning at the cephalic arch. A smooth apparent | | stenosis is present at the proximal aspect of the cephalic arch which may be positional | | and did not appear to represent true stenosis. Following interventions as described | | above, final angiographic result demonstrates resolution of the thrombus within the AV | | graft, maintenance of arterial flow without evidence of distal localization, and | | consistent positioning with the stent extending from the arteriovenous anastomosis | | across the area of perianastomotic stenosis. IMPRESSION: Successful declotting of AV | | graft as described above requiring a self-expanding stent the perianastomotic stenosis. | | Given the number of interventions required over a fairly short time course following the | | recently revised fistula, if further stenosis/thrombosis occur in short time frame, | | additional interventions may be futile and catheter placement may be necessary until a | | new AV permanent access can be obtained. Electronically signed by Colten Hutchins MD on | | 10/31/2014 4:24 PM | + + IR Inj Dialysis Circuit (10/31/2014 3:50 PM PDT) + + | Specimen | + + | | + + + + + | Impressions | Performed At | + + + | Successful declotting of AV graft as described above requiring a | | | self-expanding stent the perianastomotic stenosis. Given the number of | | | interventions required over a fairly short time course following the | | | recently revised fistula, if further stenosis/thrombosis occur in | | | short time frame, additional interventions may be futile and catheter | | | placement may be necessary until a new AV permanent access can be | | | obtained. | | | 4:24 PM | | + + + + + + | Narrative | Performed At | + + + | IR [facility]IALYS[facility]UL[facility] dated 10/31/2014 3:50 PM CLINICAL DATA: | | | Left upper extremity fistula with perianastomotic multifocal stenosis | | | angioplastied with cutting balloon 3 days ago which thrombosed | | | yesterday COMPARISON STUDIES: 10/28/2014 PRIMARY FISCAL ANALYST: | | | Colten Hutchins MD, PhD, [facility] OPERATIONS: 1. Ultrasound-guided | | | antegrade venous access. 2. Ultrasound-guided retrograde venous | | | access 3. Chemical thrombolysis 4. Rheolytic thrombectomy 5. | | | Balloon angioplasty and cutting balloon angioplasty of the cephalic | | | vein 6. Cephalic perianastomotic venous stent placement | | | PROCEDURE: Informed consent was obtained from the patient. | | | Continuous cardiac monitoring was performed throughout the | | | procedure. Conscious sedation was provided by the nursing staff | | | during the procedure under my supervision. Sedation time:180 | | | minutes Medications: 5.5 mg Versed IV, 175 mcg Fentanyl IV, 50 mg | | | Benadryl IV, 2.5 mg Dilaudid IV, 9000 units heparin IV, 5 mg TPA IV | | | within the thrombosed fistula Contrast:80 cc Isovue 250 | | | Fluoroscopy time:10.6 minutes Radiation dose:33 mGy air kerma | | | Patient was sterilely prepped and draped in usual fashion. Grayscale | | | ultrasound was used to assess the graft which did appear thrombosed. A | | | site was selected on the lower aspect of the left upper extremity | | | brachiocephalic fistula and the skin was locally anesthetized with | | | 1% lidocaine. Micropuncture access was obtained and the sheath was | | | placed. A site was then selected higher on the arm for retrograde | | | access. The skin was locally anesthetized with 1% lidocaine. Real-time | | | ultrasound guided micropuncture sheath access was obtained. The | | | microsheath were both exchanged for 6 Brazilian sheaths. A catheter was | | | advanced over a wire via the antegrade access into the subclavian vein | | | and then withdrawn for pullback angiography demonstrating area of | | | thrombosis in the upper cephalic vein. An AngioJet rheolytic | | | thrombectomy catheter was advanced first antegrade then retrograde and | | | pulse infusion of a total of 4 mg of TPA was performed and allowed to | | | dwell for 10 minutes. AngioJet was then actuated in both antegrade | | | and retrograde access sites multiple times with intermittent | | | angiography via the sheaths. Improvement in the clot burden in the | | | upper portion of the venous outflow was noted. Via the retrograde | | | sheath, a diagnostic catheter was advanced into the distal brachial | | | artery and a Chinmay balloon was inflated and pulled back through the | | | anastomosis. The catheter was then advanced into the proximal brachial | | | artery and angiogram was performed which showed continued occlusion. | | | Several more rounds of rheolytic thrombectomy were performed. A 7 mm | | | angioplasty balloon was inflated in the upper study portion of the | | | cephalic venous outflow to macerate residual thrombus. At the known | | | perianastomotic stenosis, a 5 mm angioplasty balloon was inflated. | | | Gradual improvement in flow was noted. However, a severe stenosis in | | | the perianastomotic area was still flow limiting. A 5 mm cutting | | | angioplasty balloon was inflated multiple times with slight | | | improvement but still demonstrating flow limitation. At this point | | | in the procedure and proximal graft and discussed the findings with | | | Dr. Simon, patient's vascular surgeon who placed the fistula. After the | | | usual agreement, decision was made to place a stent over the | | | perianastomotic stenosis. A 6 mm x 4 cm Epic self-expanding stent | | | was positioned and deployed such that it extended from the | | | arteriovenous anastomosis across the perianastomotic stenosis. This | | | was postdilated under low pressure with a 7 mm balloon at 2 rommel. Final | | | angiogram via the brachial artery demonstrated good outflow with | | | resolution of the thrombus within the fistula. Temporary pursestring | | | sutures were placed and the sheath were both removed with immediate | | | hemostasis. Patient tolerated procedure well. FINDINGS: The | | | left upper extremity AV brachiocephalic fistula is thrombosed by | | | ultrasound. After obtaining antegrade and retrograde access, pullback | | | angiography demonstrates thrombus beginning at the cephalic arch. A | | | smooth apparent stenosis is present at the proximal aspect of the | | | cephalic arch which may be positional and did not appear to represent | | | true stenosis. Following interventions as described above, final | | | angiographic result demonstrates resolution of the thrombus within the | | | AV graft, maintenance of arterial flow without evidence of distal | | | localization, and consistent positioning with the stent extending from | | | the arteriovenous anastomosis across the area of perianastomotic | | | stenosis. | | + + + + + | Procedure Note | + + | Cedric, Rad Conversion - 10/19/2018 6:38 AM PDT IR [facility]IALYS[facility] dated 10/31/2014 | | 3:50 PM CLINICAL DATA: Left upper extremity fistula with perianastomotic multifocal | | stenosis angioplastied with cutting balloon 3 days ago which thrombosed yesterday | | COMPARISON STUDIES: 10/28/2014 PRIMARY FISCAL ANALYST: Colten Hutchins MD, PhD, [facility] | | OPERATIONS:1. Ultrasound-guided antegrade venous access.2. Ultrasound-guided | | retrograde venous access3. Chemical thrombolysis4. Rheolytic thrombectomy5. Balloon | | angioplasty and cutting balloon angioplasty of the cephalic vein6. Cephalic | | perianastomotic venous stent placement PROCEDURE: Informed consent was obtained from the | | patient. Continuous cardiac monitoring was performed throughout the procedure. | | Conscious sedation was provided by the nursing staff during the procedure under my | | supervision. Sedation time:180 minutesMedications: 5.5 mg Versed IV, 175 mcg Fentanyl | | IV, 50 mg Benadryl IV, 2.5 mg Dilaudid IV, 9000 units heparin IV, 5 mg TPA IV within the | | thrombosed fistula Contrast:80 cc Isovue 250Fluoroscopy time:10.6 minutesRadiation | | dose:33 mGy air kerma Patient was sterilely prepped and draped in usual fashion. | | Grayscale ultrasound was used to assess the graft which did appear thrombosed. A site | | was selected on the lower aspect of the left upper extremity brachiocephalic fistula and | | the skin was locally anesthetized with 1% lidocaine. Micropuncture access was obtained | | and the sheath was placed. A site was then selected higher on the arm for retrograde | | access. The skin was locally anesthetized with 1% lidocaine. Real-time ultrasound guided | | micropuncture sheath access was obtained. The microsheath were both exchanged for 6 | | Brazilian sheaths. A catheter was advanced over a wire via the antegrade access into the | | subclavian vein and then withdrawn for pullback angiography demonstrating area of | | thrombosis in the upper cephalic vein. An AngioJet rheolytic thrombectomy catheter was | | advanced first antegrade then retrograde and pulse infusion of a total of 4 mg of TPA | | was performed and allowed to dwell for 10 minutes. AngioJet was then actuated in both | | antegrade and retrograde access sites multiple times with intermittent angiography via | | the sheaths. Improvement in the clot burden in the upper portion of the venous outflow | | was noted. Via the retrograde sheath, a diagnostic catheter was advanced into the distal | | brachial artery and a Chinmay balloon was inflated and pulled back through the | | anastomosis. The catheter was then advanced into the proximal brachial artery and | | angiogram was performed which showed continued occlusion. Several more rounds of | | rheolytic thrombectomy were performed. A 7 mm angioplasty balloon was inflated in the | | upper study portion of the cephalic venous outflow to macerate residual thrombus. At the | | known perianastomotic stenosis, a 5 mm angioplasty balloon was inflated. Gradual | | improvement in flow was noted. However, a severe stenosis in the perianastomotic area | | was still flow limiting. A 5 mm cutting angioplasty balloon was inflated multiple times | | with slight improvement but still demonstrating flow limitation. At this point in the | | procedure and proximal graft and discussed the findings with Dr. Simon, patient's vascular | | surgeon who placed the fistula. After the usual agreement, decision was made to place a | | stent over the perianastomotic stenosis. A 6 mm x 4 cm Epic self-expanding stent was | | positioned and deployed such that it extended from the arteriovenous anastomosis across | | the perianastomotic stenosis. This was postdilated under low pressure with a 7 mm | | balloon at 2 rommel. Final angiogram via the brachial artery demonstrated good outflow with | | resolution of the thrombus within the fistula. Temporary pursestring sutures were | | placed and the sheath were both removed with immediate hemostasis. Patient tolerated | | procedure well. FINDINGS: The left upper extremity AV brachiocephalic fistula is | | thrombosed by ultrasound. After obtaining antegrade and retrograde access, pullback | | angiography demonstrates thrombus beginning at the cephalic arch. A smooth apparent | | stenosis is present at the proximal aspect of the cephalic arch which may be positional | | and did not appear to represent true stenosis. Following interventions as described | | above, final angiographic result demonstrates resolution of the thrombus within the AV | | graft, maintenance of arterial flow without evidence of distal localization, and | | consistent positioning with the stent extending from the arteriovenous anastomosis | | across the area of perianastomotic stenosis. IMPRESSION: Successful declotting of AV | | graft as described above requiring a self-expanding stent the perianastomotic stenosis. | | Given the number of interventions required over a fairly short time course following the | | recently revised fistula, if further stenosis/thrombosis occur in short time frame, | | additional interventions may be futile and catheter placement may be necessary until a | | new AV permanent access can be obtained. Electronically signed by Colten Hutchins MD on | | 10/31/2014 4:24 PM | + + US Guided Vascular Access (10/31/2014 3:47 PM PDT) + + | Specimen | [...] Procedure Note | + + | Cedric Sonido Anderson - 10/19/2018 6:38 AM PDT This Point of Care (POC) ultrasound | | image has been reviewed andinterpreted by the physician identified as the performing | | physician in theassociated interpretation and report. | | | + + documented in this encounter Visit Diagnoses + + | Diagnosis | + + | ESRD (end stage renal disease) on dialysis (HCC) End stage renal disease | + + documented in this encounter"
--- OUTSIDE RECORDS SUMMARY | ~2019-02-17 | XMS | Encounter Summary ---
Demographics + + + | Address | [address] | | | [place] [address] | + + + | Home Phone [...] Author | [facility] | | | and Josephana | + + + | Organization | [facility] | | | and Josephana [...] Team Providers + +------+ + | Care Coat Check Attendant Name | Role | Phone | [...] | | | | | | [place] | | | | | | | [...] + + | 02/24/ | Anesthesia | [facility] | Celso Dacosta | Obesity (BMI | | 2013 | Event | MED CTR OR INTRA OP | MD Douglas [address] | 30.0-34.9) (Primary | | | | [address] | [address] [place] | Dx) | | | | [place] | [address] | | | | | [address] | | | | | | [phone] | | | +--------+ + + + [...] +----+---+ + + | | 0 | [place] | | | | 7 | 43-degrees [...] +----+---+ + + | | 1 | [place] off | | | | 0 | [...] | [READ | (present upon arrival to [facility]); | 02/24/14 1045 by | 05/28/18 [...] | [READ | (present upon arrival to [facility]); | 02/24/14 1049 by | 05/28/18 [...] E | | | | | | [place] [address] | | | | | | [phone] | | | | | | | [...]
--- OUTSIDE RECORDS SUMMARY | ~2019-02-17 | XMS | Encounter Summary ---
Demographics + + + | Address | [address] | | | [place] [address] | + + + | Home Phone [...] [facility] | | | and Josephana | + + + | Organization | [facility] [...] Providers + +------+ + | Care Precision Assembly Inspector Name | Role | Phone | [...] NEPHROLOGY [address] | MD [address] | (Asymptomatic) | | | | [address] | [address] [place] | | | | | [place], [place] | [place] [address] | | | | | [address] | [phone] | | | | | [phone] | | | +--------+ + + + [...] note e-faxed to Jamil Levi in Dialysis [facility], Lianna Joy [facility] pediatric nephrology at [facility] on 02/07/14. Daniela Ibarra MD - 01/24/2014 2:48 PM PSTFormatting of this note might be different fr om the original. Comprehensive Dialysis Monthly Note Date of visit: 01/24/2014 Dialysis Clinic: [facility] [place] Mode of dialysis: Hemodialysis Dialysis prescription: MWF, [...] Access: R chest catheter. Re-referred to [facility] transplant in Oct 2013 by pediatric audiologist. Peritonitis, dialysis-associated (HCC) 07/29/2013 Note Last Updated: 07/29/2013 Due to MSSA. Had tunneled infection as well. PD catheter removed in July 2013. On Keflex till 08/01/13. History of Henoch-Schonlein purpura Note Last Updated: 07/29/2013 Diagnosed at age 10[address] Joy, pediatric audiologist. Anemia in ESRD (end-stage renal disease) (HCC) [...] for acceptable candidacy. Will f/u with [facility] Transplant Team. cc: [facility] [facility] Dr. Lianna Joy, [facility] Pediatric Nephrology [facility] Renal transplant documented in this encounter [...] DAV[place]SON | | | | | | [place] [address] | | | | | | [phone] | | | | | | | [...]
--- OUTSIDE RECORDS SUMMARY | ~2019-02-17 | XMS | Encounter Summary ---
Demographics + + + | Address | [address] | | | [place] [address] | + + + | Home Phone [...] | | | | | [place] [address] | | + + + + + | Thania Mallory | ECON | [address] | | | | | [place] [address] | | + + + + + | Deidra Weldon | ECON | [address] | | | | | [place] | | | | | [address] | | + + + + + Care Team Providers + +------+ + | Care Truck Switcher Name | Role | Phone | + [...] | Nephrology at | MD Emanuel [address] [address] | | | | | Alexander | [facility] | | | | | [facility] | [place], [place] | | | | | [address] | [address] | | | | | Mailcode: DCH7 | [phone] | | | | | Alexander | | | | | | [place], [place] | | | | | | [address] | | | | | | [phone] | | | +--------+ + + + [...] Denise | | | | | | [place] | | | | | | [address] | | | | | | [phone] | | | | | | | | +--------+ + + + + documented as of this encounter Visit Diagnoses Not on filedocumented in this encounter"
--- OUTSIDE RECORDS SUMMARY | ~2019-02-17 | XMS | Encounter Summary ---
Demographics + + + | Address | [address] | | | [place] [address] | + + + | Home Phone [...] Author | [facility] | | | and Josephana | + + + | Organization | [facility] | | | and [...] Team Providers + +------+ + | Care Plumbers And Top Helpers Name | Role | Phone | + [...] NEPHROLOGY [address] | M, DO [address] | | | | | [address] | [place], [address] | | | | | [place], [place] | [place], [place] | | | | | [address] | [address] | | | | | [phone] | | | +--------+ + + + [...] DAVIDSON | | | | | | [place] [address] | | | | | | [phone] | | | | | | | | +--------+---------+ + + + documented as of this encounter Visit Diagnoses Not on filedocumented in this encounter"
--- OUTSIDE RECORDS SUMMARY | ~2019-02-17 | XMS | Encounter Summary ---
[...] | | | | | [place] [address] | | + + + + + | Thania Mallory | ECON | [address] | | | | | [place] [address] | | + + + + + | Deidra Weldon | ECON | [address] | | | | | [place] | | | | | [address] | | + + + + + Care Team Providers + +------+ + | Care Polisher Dial Name | Role | Phone | + [...] | Nephrology at | MD Emanuel [address] [facility] | Requested (UDS) | | | | Alexander | [address] | | | | | [facility] | [place], [place] | | | | | [address] [facility] | [address] | | | | | Mailcode: DCH7 | [phone] | | | | | Alexander | | | | | | [place], [place] | | | | | | [address] | | | | | | [phone] | | | +--------+ + + + [...] Denise | | | | | | [place], [place] | | | | | | [address] | | | | | | [phone] | | | | | | | | +--------+ + + + + documented as of this encounter Visit Diagnoses Not on filedocumented in this encounter"
--- OUTSIDE RECORDS SUMMARY | ~2019-02-17 | XMS | Encounter Summary ---
Demographics + + + | Address | [address] | | | [place] [address] | + + + | Home Phone [...] | | | | | [place] [address] | | + + + + + | Thania Mallory | ECON | [address] | | | | | [place] [address] | | + + + + + | Deidra Weldon | ECON | [address] | | | | | [place] | | | | | [address] | | + + + + + Care Team Providers + +------+ + | Care Lead Principal Technical Architect Name | Role | Phone | [...] Shun | | | | | ANNALISA [facility] | [facility] | | | | | Rd [place], [place] | [place], [place] | | | | | [address] | [address] | | | | | [phone] | | | +--------+ + + + [...] | | | | | | [place], [place] | | | | | | [address] | | | | | | [phone] | | | | | | | | +--------+ + + + + documented as of this encounter Visit Diagnoses Not on filedocumented in this encounter"
--- OUTSIDE RECORDS SUMMARY | ~2019-02-17 | XMS | Encounter Summary ---
Demographics + + + | Address | [address] | | | [place] [address] | + + + | Home Phone [...] Author | [facility] | | | and Josephana | + + + | Organization | [facility] | | [...] Providers + +------+ + | Care Laborer Heading Name | Role | Phone | + [...] NEPHROLOGY [address] | MD [address] [place] | (Asymptomatic) | | | | [address] | [address] [place] | | | | | [place], [place] | [place] [address] | | | | | [address] | [phone] | | | | | [phone] | | | +--------+ + + + [...] AM PDTHEMO progress note manually faxed to [facility] [place], e-faxed to Lianna CHAVISSU Pediatric Nephrology on 08/04 03/19. Daniela Marquez M D - 07/29/2013 1:57 PM PDT Comprehensive Dialysis Monthly Note Date of visit: 07/29/2013 Dialysis Clinic: [facility] Mode of dialysis: Hemodialysis Dialysis [...] ESRD (end stage renal disease) ([facility]) Priority: High Note Last Updated: 07/29/2013 [...] age [address] Joy, pediatric physiatrist. Anemia in ESRD (end-stage renal disease) (HCC) [...] donor. Pt has been referred t o [facility]. 10. Peritonitis, MSSA. [facility]. [facility] [place] [facility] Lianna Joy, [facility] Pediatric Nephrology documented in this encounter Plan [...] DAV[place]SON | | | | | | [place] [address] | | | | | | [phone] | | | | | | | | +--------+---------+ + + + documented as of this encounter Visit Diagnoses + + | Diagnosis | + + | ESRD (end stage renal disease) (HCC) - Primary End stage renal disease | + + | Anemia in ESRD (end-stage renal disease) ([facility]) Anemia in chronic kidney disease | + + | Secondary hyperparathyroidism (HCC) Secondary hyperparathyroidism (of renal origin) | + + | Peritonitis, dialysis-associated, initial encounter (HCC) | + + documented in this encounter"
--- OUTSIDE RECORDS SUMMARY | ~2019-02-17 | XMS | Encounter Summary ---
Demographics + + + | Address | [address] | | | [place] [address] | + + + | Home Phone [...] | | | | | [place] [address] | | + + + + + | Thania Mallory | ECON | [address] | | | | | [place] [address] | | + + + + + | Deidra Weldon | ECON | [address] | | | | | [place] | | | | | [address] | | + + + + + Care Team Providers + +------+ + | Care Tube Backer Name | Role | Phone | + [...] Floor | [address] | Family sheet) | | | | [address] | [address] | | | | | Loop Mailcode: | [place], [place] | | | | | [address] [facility] | [address] | | | | | [address] | [phone] | | | | | [place], [place] | | | | | | [address] | | | | | | [phone] | | | +--------+ + + + [...] Denise | | | | | | [place] | | | | | | [address] | | | | | | [phone] | | | | | | | | +--------+ + + + + documented as of this encounter Visit Diagnoses Not on filedocumented in this encounter"
--- OUTSIDE RECORDS SUMMARY | ~2019-02-17 | XMS | Encounter Summary ---
Demographics + + + | Address | [address] | | | [place] [address] | + + + | Home Phone [...] + | Author | [facility] | | | and Josephana | + + + | Organization | [facility] | | | and [...] Team Providers + +------+ + | Care Dye Mixer Name | Role | Phone | [...] | Encounter | JOY | MD Emanuel [address] | | | | | [address] | [facility] | | | | | [address] | [place], [place] | | | | | [place], [place] | [address] | | | | | [address] | [phone] | | | | | [phone] | | | +--------+ + + + [...] DAV[place]SON | | | | | | [place] [address] | | | | | | [phone] | | | | | | | | +--------+---------+ + + + documented as of this encounter Visit Diagnoses Not on filedocumented in this encounter"
--- OUTSIDE RECORDS SUMMARY | ~2019-02-17 | XMS | Encounter Summary ---
Demographics + + + | Address | [address] | | | [place] [address] | + + + | Home Phone [...] | Author | [facility] | | | and Josephana | + + + | Organization | [facility] | [...] Team Providers + +------+ + | Care Olericulture Professor Name | Role | Phone | [...] + + | 02/21/ | Telephone | [facility] | Blake Chavarria | Procedure (Question) | | 2013 | | SURGERY [address] | MD Antonieta, FACS [address] | | | | | ST [place], [place] | [address] [facility] | | | | | [address] | [place] [address] | | | | | [phone] | [phone] | | | | | | | [...] DAV[place]SON | | | | | | [place] [address] | | | | | | [phone] | | | | | | | | +--------+---------+ + + + documented as of this encounter Visit Diagnoses Not on filedocumented in this encounter"
--- OUTSIDE RECORDS SUMMARY | ~2019-02-17 | XMS | Encounter Summary ---
Demographics + + + | Address | [address] | | | [place] [address] | + + + | Home Phone [...] Author | [facility] | | | and Josephana | + + + | Organization | [facility] | [...] Team Providers + +------+ + | Care Supply Chain Specialist Name | Role | Phone | [...] + + | 02/21/ | Telephone | [facility] | Blake Chavarria | Procedure (Question) | | 2013 | | SURGERY [address] | MD Antonieta, FACS [address] | | | | | ST [place], [place] | [address] [facility] | | | | | [address] | [place] [address] | | | | | [phone] | [phone] | | | | | | | [...] | | | | | [place] [address] | | | | | | [phone] | | | | | | | | +--------+---------+ + + + documented as of this encounter Visit Diagnoses Not on filedocumented in this encounter"
--- OUTSIDE RECORDS SUMMARY | ~2019-02-17 | XMS | Encounter Summary ---
Demographics + + + | Address | [address] | | | [place] [address] | + + + | Home Phone [...] | | | | | [place] [address] | | + + + + + | Thania Mallory | ECON | [address] | | | | | [place] [address] | | + + + + + | Deidra Weldon | ECON | [address] | | | | | [place] | | | | | [address] | | + + + + + Care Team Providers + +------+ + | Care Food Service Aide Name | Role | Phone | [...] Shun | | | | | [address] | [facility] | | | | | [place], [place] | [place] [address] | | | | | [address] | [phone] | | | | | | | [...] from patient and her family Pharmacy Preferences: [id number] [place] [address] Updated Outpatient Medications: Current Medication List Name [...] questions regarding this information contact pharmacy, pager #[phone] Thank you, Juan David Batres Pager [phone] signed by Juan David Batres [facility] at [...] Denise | | | | | | [place] | | | | | | [address] | | | | | | [phone] | | | | | | | | +--------+ + + + + documented as of this encounter Visit Diagnoses Not on filedocumented in this encounter"
--- OUTSIDE RECORDS SUMMARY | ~2019-02-17 | XMS | Encounter Summary ---
Demographics + + + | Address | [address] | | | [place] [address] | + + + | Home Phone [...] | | | | | [place] [address] | | + + + + + | Thania Mallory | ECON | [address] | | | | | [place] [address] | | + + + + + | Deidra Weldon | ECON | [address] | | | | | [place] | | | | | [address] | | + + + + + Care Team Providers + +------+ + | Care Wreath Machine Tender Name | Role | Phone [...] | Committee | | | | ANNALISA [facility] | [facility] | recommendations) | | | | Rd [place], [place] | [place], [place] | | | | | [address] | [address] | | | | | [phone] | | | +--------+ + + + [...] Denise | | | | | | [place] | | | | | | [address] | | | | | | [phone] | | | | | | | | +--------+ + + + + documented as of this encounter Visit Diagnoses Not on filedocumented in this encounter"
--- OUTSIDE RECORDS SUMMARY | ~2019-02-17 | XMS | Encounter Summary ---
Demographics + + + | Address | [address] | | | [place] [address] | + + + | Home Phone [...] | [facility] | | | and Josephana | + + + | Organization | [facility] | | | and Josephana [...] Team Providers + +------+ + | Care Fill Manager Name | Role | Phone | [...] | | [address] | [address] [facility] | | | | | [address] | [place] [address] | | | | | [phone] | [phone] | | | | | | | [...] DAVIDSON | | | | | | [place] [address] | | | | | | [phone] | | | | | | | [...]
--- OUTSIDE RECORDS SUMMARY | ~2019-02-17 | XMS | Encounter Summary ---
Demographics + + + | Address | [address] | | | [place] [address] | + + + | Home Phone [...] | | | | | [place] [address] | | + + + + + | Thania Mallory | ECON | [address] | | | | | [place] [address] | | + + + + + | Deidra Weldon | ECON | [address] | | | | | [place] | | | | | [address] | | + + + + + Care Team Providers + +------+ + | Care Tear Down Worker Name | Role | Phone | [...] Shun | | | | | ANNALISA [facility] | [facility] | | | | | Rd [place], [place] | [place], [place] | | | | | [address] | [address] | | | | | [phone] | | | +--------+ + + + [...] Denise | | | | | | [place], [place] | | | | | | [address] | | | | | | [phone] | | | | | | | | +--------+ + + + + documented as of this encounter Visit Diagnoses Not on filedocumented in this encounter"
--- OUTSIDE RECORDS SUMMARY | ~2019-02-17 | XMS | Encounter Summary ---
Demographics + + + | Address | [address] | | | [place] [address] | + + + | Home Phone [...] Author | [facility] | | | and Josephana | + + + | Organization | [facility] | | [...] Team Providers + +------+ + | Care Carpenter Maintenance Name | Role | Phone | [...] M, DO [address] | renal disease) ([facility]) | | | | [address] | [place], [address] | (Primary Dx) | | | | [place], [place] | [place], [place] | | | | | [address] | [address] | | | | | [phone] | | | +--------+ + + + [...] DAVIDSON | | | | | | [place] [address] | | | | | | [phone] | | | | | | | | +--------+---------+ + + + documented as of this encounter Visit Diagnoses + + | Diagnosis | + + | ESRD (end stage renal disease) (HCC) - Primary End stage renal disease | + + documented in this encounter"
--- OUTSIDE RECORDS SUMMARY | ~2019-02-17 | XMS | Encounter Summary ---
Demographics + + + | Address | [address] | | | [place] [address] | + + + | Home Phone [...] | | | | | [place] [address] | | + + + + + | Thania Mallory | ECON | [address] | | | | | [place] [address] | | + + + + + | Deidra Weldon | ECON | [address] | | | | | [place] | | | | | [address] | | + + + + + Care Team Providers + +------+ + | Care Customs Guard Name | Role | Phone | + [...] with SSA) | | | | Rd [place], [place] | [place], [place] | | | | | [address] | [address] | | | | | [phone] | | | +--------+ + + + [...] | | | | | | [place] | | | | | | [address] | | | | | | [phone] | | | | | | | | +--------+ + + + + documented as of this encounter Visit Diagnoses Not on filedocumented in this encounter"
--- OUTSIDE RECORDS SUMMARY | ~2019-02-17 | XMS | Encounter Summary ---
Demographics + + + | Address | [address] | | | [place] [address] | + + + | Home Phone [...] | | | | | [place] [address] | | + + + + + | Thania Mallory | ECON | [address] | | | | | [place] [address] | | + + + + + | Deidra Weldon | ECON | [address] | | | | | [place] | | | | | [address] | | + + + + + Care Team Providers + +------+ + | Care Rock Picker Name | Role | Phone | + [...] Hoff[address] | | | | | ANNALISA [facility] | [facility] | | | | | Rd [place], [place] | [place], [place] | | | | | [address] | [address] | | | | | [phone] | | | +--------+ + + + [...] [place] | | | | | | [address] | | | | | | [phone] | | | | | | | | +--------+ + + + + documented as of this encounter Visit Diagnoses Not on filedocumented in this encounter"
--- OUTSIDE RECORDS SUMMARY | ~2019-02-17 | XMS | Encounter Summary ---
Demographics + + + | Address | [address] | | | [place] [address] | + + + | Home Phone | | + + + | Preferred Language | Unknown | + + + | Marital Status | Single | + + + | Rastafari Affiliation | Unknown | + + + | Race | Unknown | + + + | Ethnic Group | Unknown | + + + Author + + + | Author | [facility] | | | and [place]ana | + + + | Organization | [facility] | | [...] Team Providers + +------+ + | Care Pipe Changer Name | Role | Phone | + [...] NEPHROLOGY [address] | MD [address] | (Asymptomatic) | | | | [address] | [address] [place] | | | | | [place], [place] | [place] [address] | | | | | [address] | [phone] | | | | | [phone] | | | +--------+ + + + [...] documented as of this encounter Progress Marilyn eJnnings - 09/30/2013 11:04 AM PDTHEMO progress note manually faxed to [facility] [place], e-faxed to Lianna CHAVISSU Pediatric Nephrology on 09/30. Daniela Marquez MD - 09/20/2013 2:55 PM PDT Comprehensive Dialysis Monthly Note Date of visit: 09/20/2013 Dialysis Clinic: [facility] Mode of dialysis: Hemodialysis Dialysis [...] renal disease) ([facility]) Priority: High Note Last Updated: 07/29/2013 Due to Henoch-Schonlein purpura. On hemodialysis, started July 2013. Prior on peritoneal dialysis, started 2012. Access: R chest catheter. Peritonitis, dialysis-associated ([facility]) 07/29/2013 Note Last Updated: 07/29/2013 Due to MSSA. Had tunneled infection as well. PD catheter removed in July 2013. On Keflex till 08/01/13. History of Henoch-Schonlein purpura Note Last Updated: 07/29/2013 Diagnosed at age 10[address] Joy, wood carving machine operator. 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 Pt has been referred to [facility]. -pt will f/u with them next month [facility] L[facility]na Joy, [facility] Pediatric Nephrology documented in this encounter Plan of Treatment +--------+---------+ + + + | Date | Type | Specialty | Care Team | Description | +--------+---------+ + + + | 03/05/ | Office | Pulmonology | D[facility]y Alexander | | | 2019 | Visit | | Deny Briggs MD [address] | | | | | | [address] [place] | | | | | | [place] [address] | | | | | | [phone] | | | | | | | [...]
--- OUTSIDE RECORDS SUMMARY | ~2019-02-17 | XMS | Encounter Summary ---
Demographics + + + | Address | [address] | | | [place] [address] | + + + | Home Phone [...] | Author | [facility] | | | and [place]ana | + + + | Organization | [facility] | | | and [...] Team Providers + +------+ + | Care Tower Equipment Repairer Name | Role | Phone | [...] NEPHROLOGY [address] | M, DO [address] | | | | | [address] | [place] | | | | | [place], [place] | [place], [place] | | | | | [address] | [address] | | | | | [phone] | | | +--------+ + + + [...] | | | | | | [place] [address] | | | | | | [phone] | | | | | | | | +--------+---------+ + + + documented as of this encounter Visit Diagnoses Not on filedocumented in this encounter"
--- OUTSIDE RECORDS SUMMARY | ~2019-02-17 | XMS | Encounter Summary ---
Demographics + + + | Address | [address] | | | [place] [address] | + + + | Home Phone [...] | Author | [facility] | | | and [place]ana | + + + | Organization | [facility] | | | and Josephana [...] Team Providers + +------+ + | Care Gasket Supervisor Name | Role | Phone | [...] NEPHROLOGY [address] | MD [address] | | | | | [address] | [address] [place] | | | | | [place], [place] | [place] [address] | | | | | [address] | [phone] | | | | | [phone] | | | +--------+ + + + [...] [address] | | | | | | [place] [address] | | | | | | [phone] | | | | | | | | +--------+---------+ + + + documented as of this encounter Visit Diagnoses Not on filedocumented in this encounter"
--- OUTSIDE RECORDS SUMMARY | ~2019-02-17 | XMS | Encounter Summary ---
Demographics + + + | Address | [address] | | | [place] [address] | + + + | Home Phone [...] Author | [facility] | | | and [place]ana | + + + | Organization | [facility] | | | and Josephana [...] Team Providers + +------+ + | Care Rolfer Name | Role | Phone | + [...] + + | 11/06/ | Hospital | [facility] | Johnathan Brooks, | Chronic right-sided | | 2019 - | Encounter | [facility] | MD Brooks TORRES | heart failure (HCC) | | | | CARE FLOOR [address] | [place] [address] | (Primary Dx); Acute | | 11/09/ | [address] | [phone] | hypoxemic | | 2019 | | [place], [place] | | respiratory failure | | | | [address] | Darell Kowalski MD | (HCC); Chronic | | | | [phone] | [address] | 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 | | | | | [phone] | failure (HCC); | | | | | | 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 [facility] Service: Medicine DISCHARGE SUMMARY Primary [...] evaluated at local emergency room at [facility]. In the ER patient was evaluated by [...] transferred with the patient's paper documentation from [facility] ER). Initial labs: WBC 6.5, hemoglobin 11.0, [...] suggesting of edema. Taken from Dr. Brooks [facility] (11/06/2018) HOSPITAL COURSE Patient [...] GRAFT REPAIR/REVISION; Surgeon: Rik Simon MD; Location: [facility]; Service: Vascular; Laterality: Left; biopsy of kidney age 10 DIALYSIS FISTULA CREATION 04/08/2014 Procedure: DIALYSIS CATHETER - INSERTION; Surgeon: Rik Simon MD; Location: [facility] ; Service: Vascular; Laterality: N/A; tunneled catheter.br hemodialysis catheter KIDNEY BIOPSY Left 2003 OTHER SURGICAL HISTORY LAPAROSCOPIC PERITONEAL DIALYSIS CATHETER INSERTION - x2 OTHER SURGICAL HISTORY Right 07/2013 LAPAROSCOPIC PERITONEAL DIALYSIS CATHETER INSERTION - current dialysis access MWF dialysis OTHER SURGICAL HISTORY Left 06/24/2014 SUPERFICIALIZATION OF AV FISTULA - Procedure: AV FISTULA - SUPERFICIALIZATION; Surgeon: Emanuel Simon MD; Location: [facility]; Service: Vascular; Laterality: Left; OTHER SURGICAL HISTORY Left 04/08/2014 AV FISTULA PLACEMENT - Procedure: AV FISTULA; Surgeon: Rik Simon MD; Location: [facility]; Service: Vascular; Laterality: Left; cephalic OTHER SURGICAL HISTORY Left 03/07/2014 DECLOT GRAFT - Procedure: GRAFT - DECLOT; Surgeon: Rik Simon MD; Location: [facility] ; Service: Vascular; Laterality: Left; peritoneal [...] Value Units Date/Time Culture, Body Fluid Sterile [[id number]] Collected: 11/07/18 1515 Order Status: Completed Lab Status: Preliminary result Updated: 11/09/18 1412 Specimen: Body Fluid from Pleural Fluid, Right Special Requests RIGHT SIDE Special Requests Testing performed at [facility];[address] [place] [address] Gram Stain Result NO CELLS OR ORGANISMS SEEN RESULT NO GROWTH 2 DAYS RESULT Testing performed at [facility], [address] [place] [address] Comment: Testing performed at [facility], [address] [place] [address] Culture, Body Fluid Sterile [[id number]] Order Status: Canceled Lab Status: No result [...] DANIEL Follow Up: Jonathan Alonso MD [address] [facility] [place] [address] In 1 week René Anguiano MD [address] [facility] [address] [place] [address] In 1 week [...] | | | renal disease) ([facility]) | protocol | | | | | [...] her sister. DME equipment order sent to [facility]. She refused oxygen delivery to the h ospital saying that she just wanted to go home. Orders state 1L for ambulating only.Electron ically signed by Daniela Vyas RN at 11/09/2018 3:47 PM Anival Patten RRT [...] UF. Hypervolemia has improved with HD/UF/thoracentesis. Acute RI has been ruled out. Recommendations: Plan for [...] for continuity of chart review/care. Dictation software, Luxoft, was used which may contain error for [...] this note might be different from the [facility] Inpatient Progress Note Pt: Dara Louise AGE/SEX: 23 y.o. ROOM: [facility]/8125- : 1995 PCP: Jonathan Alonso MD [...] hypervolemic and has recurrent hyperkalemia/metabolic acidosis. Acute RI has been ruled out. Recommendations: Plan for [...] for continuity of chart review/care. Dictation software, Luxoft, was used which may contain error for [...] this note might be different from the [facility] Inpatient Progress Note Pt: Dara Louise AGE/SEX: 23 y.o. ROOM: [address] [place] [address] : 1995 PCP: Jonathan Alonso MD PATIENT [...] and dyspnea. The patient was seen at [facility] ER and then transferred to our internal [...] [address] | | | | | | [place] [address] | | | | | | [phone] | | | | | | | [...] + | Billie Gupta MD 11/09/2018 9:34 [facility] | | | Center Hemo-Dialysis Procedure note [...] | | . 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 [employer] [address] 240 | | | Constitutional: pt [...] ANDREY | | | | performed at [facility], [address] | | LABORATORY | | | | [address], | | | | | | [place] [address] | | | | + + + + + + + + | Specimen | + + | Blood | + + + + + + + | Performing | Address | City/State/Zipcode | Phone Number | | Organization | | | | + + + + + | [facility] | [address] | [place] [address] | [phone] | + + + + + Comprehensive [...] | | | | | | [address] [facility], | | | | | | [place] [address] | | | | + + + + + + + + | Specimen | + + | Blood | + + + + + + + | Performing | Address | City/State/Zipcode | Phone Number | | Organization | | | | + + + + + | [facility] | [address] | [place] [address] | [phone] | + + + + + CBC [...] LABORATORY | | | | performed at [facility], [address] | | | | | | [address], | | | | | | [place] [address] | | | | | | | | | | + + + + + + + + | Specimen | + + | Blood | + + + + + + + | Performing | Address | City/State/Zipcode | Phone Number | | Organization | | | | + + + + + | [facility] | [address] | [place] [address] | [phone] | + + + + + Protime INR (11/09/2018 4:14 AM PDT) + + + + + + | Component | Value | Ref Range | Performed | Pathologist | | | | | At | Signature | + + + + + + | INR | 1.3Comment: REFERENCE | | [facility] | | | | RANGE:0.9 [...] | | | performed at [facility];[address];[place] | | | | | | [address] | | | | + + + + + + + + | Specimen | + + | Blood | + + + + + + + | Performing | Address | City/State/Zipcode | Phone Number | | Organization | | | | + + + + + | [facility] | [address] | [place] [address] | [phone] | + + + + + Comprehensive [...] 9 (L)Comment: GFR <60: | >60 | [facility] | | | GFR | [...] Campus, | | | | | | [place] [address] | | | | + + + + + + + + | Specimen | + + | Blood | + + + + + + + | Performing | Address | City/State/Zipcode | Phone Number | | Organization | | | | + + + + + | [facility] | [address] | [place] [address] | [phone] | + + + + + CBC [...] Blvd, | | | | | | [place] [address] | | | | | |Testing performed at [facility], [address], [place] [address] | | | | | | | | | | + + +---- + + + + + | Specimen | + + | Blood | + + + + + + + | Performing | Address | City/State/Zipcode | Phone Number | | Organization | | | | + + + + + | [facility] | [address] | [place] [address] | [phone] | + + + + + Protime [...] | | | performed at [facility] | | | | | | [address] [facility];[place], [place] | | | | | | [address] | | | | + + + + + + + + | Specimen | + + | Blood | + + + + + + + | Performing | Address | City/State/Zipcode | Phone Number | | Organization | | | | + + + + + | [facility] | [address] | [place] [address] | [phone] | + + + + + XR [...] is | | | punctured with an 5-Lao thoracentesis catheter. Fluid is aspirated | | [...] the pleural space is punctured with an 5-Lao | | thoracentesis catheter. Fluid is aspirated [...] Special | Testing performed at | | [facility] | | | Requests | [facility];[address] | | LABORATORY | | | | [address];[place] [address] | | | | + + + + + + | Gram Stain | NO CELLS OR ORGANISMS | | [facility] | | | Result | SEEN | | LABORATORY | | + + + + + + | RESULT | NO GROWTH 4 DAYS | | [facility] | | | | | | LABORATORY | | + + + + + + | RESULT | Testing performed at | | [facility] | | | | TCL, [address] [facility] | | LABORATORY | | | | [place] | | | | | | [address]Nfkioxa: Testing | | | | | | performed at [facility], [address] | | | | | | [place] | | | | | | [address] | | | | + + + + + + + + | Specimen | + + | Body Fluid - Pleural | | fluid specimen | | (specimen) | + + + + + + + | Performing | Address | City/State/Zipcode | Phone Number | | Organization | | | | + + + + + | [facility] | [address] | [place] [address] | [phone] | + + + + + Protein, Body Fluid (11/07/2018 3:15 PM PDT) + + + + + + | Component | Value | Ref Range | Performed | Pathologist | | | | | At | Signature | + + + + + + | Protein, BF | 3.4Comment: This is not | g/dL | [facility] | | | | a wood tank erector validated | | LABORATORY | | | | sample type for this | | | | | | method. No | | | | | | referenceranges have | | | | | | been established.Testing | | | | | | performed at [facility], [address] | | | | | [address], | | | | | | [place] [address] | | | | + + + + + + | SOURCE | PLEURAL FLUIDComment: | | [facility] | | | | Testing performed at | | LABORATORY | | | | [facility];[address] [facility] | | | | | | [place] [address] | | | | + + + + + + + + | Specimen | + + | Body Fluid | + + + + + + + | Performing | Address | City/State/Zipcode | Phone Number | | Organization | | | | + + + + + | [facility] | [address] | [place] [address] | [phone] | + + + + + Lactate [...] [facility] | | | FLUID | a wood tank erector validated | | LABORATORY | | | | sample type for this | | | | | | method. No | | | | | | referenceranges have | | | | | | been established.Testing | | | | | | performed at [facility], [address] | | | | | [address] [facility], | | | | | | [place] [address] | | | | + + + + + + + + | Specimen | + + | Body Fluid | + + + + + + + | Performing | Address | City/State/Zipcode | Phone Number | | Organization | | | | + + + + + | [facility] | [address] [facility] | [place] [address] | [phone] | + + + + + Glucose, Body Fluid (11/07/2018 3:15 PM PDT) + + + + + + | Component | Value | Ref Range | Performed | Pathologist | | | | | At | Signature | + + + + + + | Glucose | 96Comment: This is not a | mg/dL | [facility] | | | Fluid | wood tank erector validated | | LABORATORY | | | | sample type for this | | | | | | method. No | | | | | | referenceranges have | | | | | | been established.Testing | | | | | | performed at [facility], [address] | | | | | [address], | | | | | | [place] [address] | | | | + + + + + + | SOURCE | PLEURAL FLUIDComment: | | [facility] | | | | Testing performed at | | LABORATORY | | | | [facility];[address] | | | | | | [address];[place] [address] | | | | + + + + + + + + | Specimen | + + | Body Fluid | + + + + + + + | Performing | Address | City/State/Zipcode | Phone Number | | Organization | | | | + + + + + | [facility] | [address] | [place] [address] | [phone] | + + + + + Cell [...] + + + | BF RBC | <39926 | /mm3 | [facility] | | | [...] | | | Counted | performed at [facility] | | LABORATORY | | | | [address];[place], [place] | | | | | | [address] | | | | + + + + + + + + | Specimen | + + | Body Fluid | + + + + + + + | Performing | Address | City/State/Zipcode | Phone Number | | Organization | | | | + + + + + | [facility] | [address] | [place] [address] | [phone] | + + + + + Amylase, Body Fluid (11/07/2018 3:15 PM PDT) + + + + + + | Component | Value | Ref Range | Performed | Pathologist | | | | | At | Signature | + + + + + + | AMYLASE | 46Comment: This is not a | U/L | [facility] | | | FLUID | wood tank erector validated | | LABORATORY | | | | sample type for this | | | | | | method. No | | | | | | referenceranges have | | | | | | been established.Testing | | | | | | performed at [facility], [address] | | | | | [address] [facility] [facility], | | | | | | [place] [address] | | | | + + + + + + + + | Specimen | + + | Body Fluid | + + + + + + + | Performing | Address | City/State/Zipcode | Phone Number | | Organization | | | | + + + + + | [facility] | [address] | [place] [address] | [phone] | + + + + + Albumin, Body Fluid (11/07/2018 3:15 PM PDT) + + + + + + | Component | Value | Ref Range | Performed | Pathologist | | | | | At | Signature | + + + + + + | Albumin, | 2.0Comment: This is not | g/dL | [facility] | | | Fluid | a wood tank erector validated | | LABORATORY | | | | sample type for this | | | | | | method. No | | | | | | referenceranges have | | | | | | been established.Testing | | | | | | performed at [facility], [address] | | | | | [address] [facility], | | | | | | [place] [address] | | | | + + + + + + + + | Specimen | + + | Body Fluid | + + + + + + + | Performing | Address | City/State/Zipcode | Phone Number | | Organization | | | | + + + + + | [facility] | [address] | [place] [address] | [phone] | + + + + + Medical Cytology (11/07/2018 3:15 PM PDT) + + | Specimen | + + | Body Fluid - Pleural | | fluid specimen | | (specimen) | + + + + + | Narrative | Performed At | + + + | ORDERING | [facility] | | PHYSICIAN:Darell Kowalski MD PATIENT NAME:DARA LOUISEEGENDER: | INCYTE | | [...] preparation was | | | performed by [employer], [address] | | | [place] [address] (Fuel Verification Technician: Matt Claudio D.O.; CLIA#: | | | [id number]).Professional interpretation was performed by [employer] | | | [address], | | | [place] [address] (Fuel Verification Technician: Daniel Larson M.D.; CLIA#: | | | [id number]).6 Diagnostician: Enrrique Nichols | | | [place](ASCP)CytotechnologistDiagnostician: [...] | | |Technical preparation was performed by [employer], [address] [address] (Fuel Verification Technician: Matt Claudio D.O.; CLIA#: [id number]). | | |Professional interpretation was performed by [employer], [address] [address] (Fuel Verification Technician: Daniel Larson M.D.; CLIA#: [id number]).6 | | | | | |Diagnostician: Enrrique BROOKS(ASCP) | | |[employer] | | |Diagnostician: Daniel Larson MD | [...] at | | | | | | [facility];[address] [facility] | | | | | | [address]vd;[place] [address] | | | | + + + + + + + + | Specimen | + + | Blood | + + + + + + + | Performing | Address | City/State/Zipcode | Phone Number | | Organization | | | | + + + + + | [facility] | [address] | [place] [address] | [phone] | + + + + + ECG [...] INR | 1.3Comment: REFERENCE | | [facility] | | | | RANGE:0.9 [...] | | | performed at [facility];[address] | | | | | | [address] [facility];[place], [place] | | | | | | [address] | | | | + + + + + + + + | Specimen | + + | Blood | + + + + + + + | Performing | Address | City/State/Zipcode | Phone Number | | Organization | | | | + + + + + | [facility] | [address] [facility] [facility] [address] [facility] | [place] [address] | [phone] | + + + + + Platelet Count (11/07/2018 4:03 AM PDT) + + + + + + | Component | Value | Ref Range | Performed | Pathologist | | | | | At | Signature | + + + + + + | Platelet | 185Comment: Testing | 150 - 400 K/uL | [facility] | | | Count | performed at [facility], [address] | | LABORATORY | | | | [address], | | | | | | [place] [address] | | | | + + + + + + + + | Specimen | + + | Blood | + + + + + + + | Performing | Address | City/State/Zipcode | Phone Number | | Organization | | | | + + + + + | [facility] | [address] | [place] [address] | [phone] | + + + + + PTT (11/07/2018 4:03 AM PDT) + + + + + + | Component | Value | Ref Range | Performed | Pathologist | | | | | At | Signature | + + + + + + | PTT | 27Comment: Testing | 23 - 32 seconds | [facility] | | | | performed at [facility];[address] | | LABORATORY | | | | [address];[place] | | | | | | [address] | | | | + + + + + + + + | Specimen | + + | Blood | + + + + + + + | Performing | Address | City/State/Zipcode | Phone Number | | Organization | | | | + + + + + | [facility] | [address] | [place] [address] | [phone] | + + + + + Lactate Dehydrogenase (11/07/2018 4:03 AM PDT) + + + + + + | Component | Value | Ref Range | Performed | Pathologist | | | | | At | Signature | + + + + + + | LDH TOTAL | 202Comment: Testing | 120 - 246 U/L | [facility] | | | | performed at [facility];[address] | | LABORATORY | | | | [address];[place] | | | | | | [address] | | | | + + + + + + + + | Specimen | + + | Blood | + + + + + + + | Performing | Address | City/State/Zipcode | Phone Number | | Organization | | | | + + + + + | [facility] | [address] | [place] [address] | [phone] | + + + + + Magnesium (11/07/2018 4:03 AM PDT) + + + + + + | Component | Value | Ref Range | Performed | Pathologist | | | | | At | Signature | + + + + + + | Magnesium | 2.3Comment: Testing | 1.7 - 2.4 mg/dL | [facility] | | | | performed at [facility];[address] | | LABORATORY | | | | [address];[place], [place] | | | | | | [address] | | | | + + + + + + + + | Specimen | + + | Blood | + + + + + + + | Performing | Address | City/State/Zipcode | Phone Number | | Organization | | | | + + + + + | [facility] | [address] | [place] [address] | [phone] | + + + + + Comprehensive [...] 7 (L)Comment: GFR <60: | >60 | [facility] | | | GFR | [...] | | | | | | MDRD IDNC traceable | | | | | | equation.Testing | | | | | | performed at [facility], [address] | | | | | | [facility], | | | | | | [place] [address] | | | | + + + + + + + + | Specimen | + + | Blood | + + + + + + + | Performing | Address | City/State/Zipcode | Phone Number | | Organization | | | | + + + + + | [facility] | [address] | [place] [address] | [phone] | + + + + + Troponin I (11/06/2018 9:54 PM PDT) + + + + + + | Component | Value | Ref Range | Performed | Pathologist | | | | | At | Signature | + + + + + + | Troponin I | 0.045 (H)Comment: 0.04 | 0.00 - 0.04 | [facility] | | | | ng/mL [...] at | | | | | | [facility];[address] | | | | | [address];[place] [address] | | | | + + + + + + + + | Specimen | + + | Blood | + + + + + + + | Performing | Address | City/State/Zipcode | Phone Number | | Organization | | | | + + + + + | [facility] | [address] | [place] [address] | [phone] | + + + + + Protime [...] | | | performed at [facility] | | | | | | [address];[place], [place] | | | | | | [address] | | | | + + + + + + + + | Specimen | + + | Blood | + + + + + + + | Performing | Address | City/State/Zipcode | Phone Number | | Organization | | | | + + + + + | [facility] | [address] | [place] [address] | [phone] | + + + + + ECHO [...] (H)Comment: 0.04 | 0.00 - 0.04 | [facility] | | | | ng/mL [...] at | | | | | | [facility];[address] [place] [address] | | | | | | [facility];[place] [address] | | | | + + + + + + + + | Specimen | + + | Blood | + + + + + + + | Performing | Address | City/State/Zipcode | Phone Number | | Organization | | | | + + + + + | [facility] | [address] | [place] [address] | [phone] | + + + + + Magnesium (11/06/2018 3:57 PM PDT) + + + + + + | Component | Value | Ref Range | Performed | Pathologist | | | | | At | Signature | + + + + + + | Magnesium | 2.4Comment: Testing | 1.7 - 2.4 mg/dL | [facility] | | | | performed at [facility], [address] | | LABORATORY | | | | [address], | | | | | | [place] [address] | | | | + + + + + + + + | Specimen | + + | Blood | + + + + + + + | Performing | Address | City/State/Zipcode | Phone Number | | Organization | | | | + + + + + | [facility] | [address] | [place] [address] | [phone] | + + + + + documented [...] | acetaminophen (TYLENOL) tablet | Given | 09/03/20 | 650 mg | | | | [...] | | | | | Intravenous, ONCE, 9/4/19 at | | AM PDT | | [...]
--- OUTSIDE RECORDS SUMMARY | ~2019-02-17 | XMS | Encounter Summary ---
Demographics + + + | Address | [address] | | | [place] [address] | + + + | Home Phone [...] | | | | | [place] [address] | | + + + + + | Thania Mallory | ECON | [address] | | | | | [place] [address] | | + + + + + | Deidra Weldon | ECON | [address] | | | | | [place] | | | | | [address] | | + + + + + Care Team Providers + +------+ + | Care Medicine Aide Name | Role | Phone | [...] Coordinators [address] | RN [address] [facility] | | | | | [address] [facility] | [facility] | | | | | Rd [place], [place] | [place], [place] | | | | | [address] | [address] | | | | | [phone] | | | +--------+ + + + [...] Denise | | | | | | [place], [place] | | | | | | [address] | | | | | | [phone] | | | | | | | | +--------+ + + + + documented as of this encounter Visit Diagnoses Not on filedocumented in this encounter"
--- OUTSIDE RECORDS SUMMARY | ~2019-02-17 | XMS | Encounter Summary ---
Demographics + + + | Address | [address] | | | [place] [address] | + + + | Home Phone [...] | | | | | [place] [address] | | + + + + + | Thania Mallory | ECON | [address] | | | | | [place] [address] | | + + + + + | Deidra Weldon | ECON | [address] | | | | | [place] | | | | | [address] | | + + + + + Care Team Providers + +------+ + | Care Specialty Molder Name | Role | Phone | [...] Visit | Services Inpatient | [address] [facility] | disease, stage V | | | | [address] [facility] | [facility] | (HCC) (Primary Dx) | | | | [address] | [place], [place] | | | | | Mailcode: UHS18 | [address] | | | | | [place], [place] | [phone] | | | | | [address] | | | | | | [phone] | | | +--------+---------+ + + + [...] a nutrition perspective. Argentina Mehta, MS, RD, RN TRANSPLANT, LD documented in this e ncounter Plan of Treatment +--------+ + + + + | Date | Type | Specialty | Care Team | Description | +--------+ + + + + | 05/04/ | Hospital | Adult Acute Care | El Starr MD | | | 2022 | Encounter | | [address] | | | | | | [place], [place] | | | | | | [address] | | | | | | [phone] | | | | | | | | +--------+ + + + + documented as of this encounter Procedures + +--------+ + + + | Procedure Name | Priori | Date/Time | Associated Diagnosis | Comments | | | ty | | | | + +--------+ + + + | AL MNT INITIAL | Routin | 12/21/2012 | [...]
--- OUTSIDE RECORDS SUMMARY | ~2019-02-17 | XMS | Encounter Summary ---
Demographics + + + | Address | [address] | | | [place] [address] | + + + | Home Phone [...] | Author | [facility] | | | and [place] | + + + | Organization | [facility] | [...] Providers + +------+ + | Care Sole Inker Name | Role | Phone | + [...] stage renal | [address] | [address] [place] [address] | | | | | disease) | Shun Griffin | [place] | | | | | (HCC) | [address] | [address] [place] | | | | | Anemia in | [place], [place] | [place], [place] | | | | | ESRD | [address] | [address] Phone: | | | | | (end-stage | Phone: | [phone] | | | | | renal | [phone] | Fax: | | | | | disease) | Fax: | [phone] | | | | | ([facility]) | [phone] | | | | | | Procedures [...] DO [address] | renal disease) ([facility]) | | | | [address] | [place] | (Primary Dx) | | | | [place], [place] | [place], [place] | | | | | [address] | [address] | | | | | [phone] | | | +--------+ + + + [...] Fina charge nurse, Elisabeth Quijano RN, and [employer] medical student Yefri Bean MS III, about lifestyle modification, compliance, and her potential risk for increased her vascular morbidity, mortality. 2. 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 I discussed this wi th the renal EXPERIMENTAL MECHANIC SPACECRAFT. 3. Monthly lab was reviewed with the patient. 4. Long-term prognosis remains poor, due to her poor to no insight into her chronic health conditions, or health maintenance. : [place] Fina Alonso MD, PhD documented in thi [...] | | | | | [place] [address] | | | | | | [phone] | | | | | | | | +--------+---------+ + + + documented as of this encounter Visit Diagnoses + + | Diagnosis | + + | ESRD (end stage renal disease) (HCC) - Primary End stage renal disease | + + documented in this encounter"
--- OUTSIDE RECORDS SUMMARY | ~2019-02-17 | XMS | Encounter Summary ---
Demographics + + + | Address | [address] | | | [place] [address] | + + + | Home Phone [...] + + + | Author | [facility] | | | and [place]ana | + + + | Organization | [facility] [...] Providers + +------+ + | Care Manager Equity Name | Role | Phone | + [...] + + | 12/19/ | Telephone | [facility] | George Torres RN | Congestive Heart | | 2019 | | [address] | | Failure (Reviewed | | | | [place], [place] | | for CHF Quality | | | | [address] | | Measures) | | | | [phone] | | | +--------+ + + + [...] [address] | | | | | | [place] [address] | | | | | | [phone] | | | | | | | | +--------+---------+ + + + documented as of this encounter Visit Diagnoses Not on filedocumented in this encounter"
--- OUTSIDE RECORDS SUMMARY | ~2019-02-17 | XMS | Encounter Summary ---
Demographics + + + | Address | [address] | | | [place] [address] | + + + | Home Phone [...] Author | [facility] | | | and [place] | + + + | Organization | [facility] | | | [...] Providers + +------+ + | Care Technical Customer Support Specialist Name | Role | Phone [...] | | [address] | [place] | | | | | [place], [place] | [place], [place] | | | | | [address] | [address] | | | | | [phone] | | | +--------+--------+ + + + [...] | | | | | [place] [address] | | | | | | [phone] | | | | | | | | +--------+---------+ + + + documented as of this encounter Visit Diagnoses Not on filedocumented in this encounter"
--- OUTSIDE RECORDS SUMMARY | ~2019-02-17 | XMS | Encounter Summary ---
Demographics + + + | Address | [address] | | | [place] [address] | + + + | Home Phone [...] | Author | [facility] | | | and [place] | + + + | Organization | [facility] | | | and [place] | + + + | Address | Unknown | + + + | Phone | Unavailable | + + + Support + + +---------+ + | Name | Relationship | Address | Phone | + + +---------+ + | Thania Mallory | ECON | Unknown | | + + +---------+ + | Saunrda Mallory | ECON | Unknown | | + + +---------+ + Care Team Providers + +------+ + | Care In Store Marketing Associate Name | Role | Phone | [...] | NEPHROLOGY [address] | [address] | | | | | [address] | [address] [place] | | | | | [place], [place] | [place] [address] | | | | | [address] | [phone] | | | | | [phone] | | | +--------+--------+ + + + [...] | | | | | [place] [address] | | | | | | [phone] | | | | | | | | +--------+---------+ + + + documented as of this encounter Visit Diagnoses Not on filedocumented in this encounter"
--- OUTSIDE RECORDS SUMMARY | ~2019-02-17 | XMS | Encounter Summary ---
Demographics + + + | Address | [address] | | | [place] [address] | + + + | Home Phone [...] Author | [facility] | | | and [place]ana | + + + | Organization | [facility] | | [...] Providers + +------+ + | Care Financial Management Analyst Name | Role | Phone [...] | Encounter | JOY | MD Emanuel [address] | | | | | [address] | [facility] | | | | | [address] | [place], [place] | | | | | [place], [place] | [address] | | | | | [address] | [phone] | | | | | [phone] | | | +--------+ + + + [...] [address] | | | | | | [place] [address] | | | | | | [phone] | | | | | | | | +--------+---------+ + + + documented as of this encounter Visit Diagnoses Not on filedocumented in this encounter"
--- OUTSIDE RECORDS SUMMARY | ~2019-02-17 | XMS | Encounter Summary ---
Demographics + + + | Address | [address] | | | [place] [address] | + + + | Home Phone [...] | Author | [facility] | | | and [place] | + + + | Organization | [facility] | [...] + +------+ + | Care Human Resources Vice President Name | Role | Phone [...] NEPHROLOGY [address] | M, DO [address] | | | | | [address] | [place] | | | | | [place], [place] | [place], [place] | | | | | [address] | [address] | | | | | [phone] | | | +--------+ + + + [...] in her mid left upper arm AVF. ASSISTANT EDITOR today = 230 mmHg. In view of this will start her on ASA 81 mg, QD, and Plavix 75 mg, daily for prevention of AVF thrombosis, given the former indwelling stent. She was called by tunnel heading supervisorElisabeth to begin above. : [facility] documented in this encounter Plan of Treatment +--------+---------+ + + + | Date | Type | Specialty | Care Team | Description | +--------+---------+ + + + | 03/05/ | Office | Pulmonology | Denny Alexander | | | 2019 | Visit | | Deny Briggs MD [address] | | | | | | [address] | | | | | | [place] [address] | | | | | | [phone] | | | | | | | | +--------+---------+ + + + documented as of this encounter Visit Diagnoses Not on filedocumented in this encounter
--- OUTSIDE RECORDS SUMMARY | ~2019-02-17 | XMS | Encounter Summary ---
Demographics + + + | Address | [address] | | | [place] [address] | + + + | Home Phone [...] | Author | [facility] | | | and [place] | + + + | Organization | [facility] | [...] Team Providers + +------+ + | Care Geochemist Name | Role | Phone | + +------+ + PCP | Unavailable | + +------+ + Encounter Details +--------+ + + + + | Date | Type | Department | Care Team | Description | +--------+ + + + + | 06/11/ | Hospital | [facility] | | | | 2008 - | Encounter | MED [facility] OP [facility]AB | | | | | | [address] | | | | 07/03/ | | [place] [address] | | | | 2008 | | [phone] | | | +--------+ + + + [...] [address] | | | | | | [place] [address] | | | | | | [phone] | | | | | | | | +--------+---------+ + + + documented as of this encounter Visit Diagnoses Not on filedocumented in this encounter"
--- OUTSIDE RECORDS SUMMARY | ~2019-02-17 | XMS | Encounter Summary ---
Demographics + + + | Address | [address] | | | [place] [address] | + + + | Home Phone [...] | [facility] | | | and [place] | + + + | Organization | [facility] | | | and [...] Team Providers + +------+ + | Care Pleating Machine Operator Name | Role | Phone [...] + | 03/05/ | Clinical | [facility] | Blake Chavarria | End stage renal | | 2013 | Support | SURGERY [address] | MD Antonieta, FACS [address] | failure on dialysis | | | | [place], [place] | [facility] | ([facility]) (Primary Dx) | | | | [address] | [place] [address] | | | | | [phone] | [phone] | | | | | | | [...] [place] | | | | | | [place] [address] | | | | | | [phone] | | | | | | | | +--------+---------+ + + + documented as of this encounter Visit Diagnoses + + | Diagnosis | + + | End stage renal failure on dialysis (HCC) - Primary End stage renal disease | + + documented in this encounter"
--- OUTSIDE RECORDS SUMMARY | ~2019-02-17 | XMS | Encounter Summary ---
Demographics + + + | Address | [address] | | | [place] [address] | + + + | Home Phone [...] | | | | | [place] [address] | | + + + + + | Thania Mallory | ECON | [address] | | | | | [place] [address] | | + + + + + | Deidra Weldon | ECON | [address] | | | | | [place] | | | | | [address] | | + + + + + Care Team Providers + +------+ + | Care Turn Operator Name | Role | Phone | [...] | Update | | | | [facility] | [facility] | | | | | Rd [place], [place] | [place], [place] | | | | | [address] | [address] | | | | | [phone] | | | +--------+ + + + [...] [place] | | | | | | [address] | | | | | | [phone] | | | | | | | | +--------+ + + + + documented as of this encounter Visit Diagnoses Not on filedocumented in this encounter"
--- OUTSIDE RECORDS SUMMARY | ~2019-02-17 | XMS | Encounter Summary ---
Demographics + + + | Address | [address] | | | [place] [address] | + + + | Home Phone [...] | | | | | [place] [address] | | + + + + + | Thania Mallory | ECON | [address] | | | | | [place] [address] | | + + + + + | Deidra Weldon | ECON | [address] | | | | | [place] | | | | | [address] | | + + + + + Care Team Providers + +------+ + | Care Hot Knife Foxing Cutter Name | Role | Phone | [...] [address] | | | | | | [address] | [place] | | | | | | [address] | [place], [place] | | | | | | [place] | [address] | | | | | | [place] | Phone: | | | | | | [address] | [phone] | | | | | | Phone: | | | | | | | [phone] | | | | | | | Fax: | | | | | | | [phone] | | +--------+--------+ + + + + Encounter Details +--------+---------+ + + + | Date | Type | Department | Care Team | Description | +--------+---------+ + + + | 11/16/ | Office | Specialty Clinics | Sudhakar Joy | 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 Have your friend call Brittney about [phone] Sudhakar Joy MD documented in this encounter [...] [facility], [facility] Mail code [facility] [place], [place] [id number] documented in this encounter Plan of Treatment +--------+ + + + + | Date | Type | Specialty | Care Team | Description | +--------+ + + + + | 05/04/ | Hospital | Adult Acute Care | El Starr MD | | | 2022 | Encounter | | [address] | | | | | | [place], [place] | | | | | | [address] | | | | | | [phone] | | | | | | | [...]
--- OUTSIDE RECORDS SUMMARY | ~2019-02-17 | XMS | Encounter Summary ---
Demographics + + + | Address | [address] | | | [place] [address] | + + + | Home Phone [...] | [facility] | | | and [place] | + + + | Organization | [facility] | | [...] Providers + +------+ + | Care Director Cloud Transformation Name | Role | Phone | + [...] | | stage renal | [address] | [address] [place] [address] | | | | | disease) | Shun Griffin | [address] | | | | | ([facility]) | [address] | [address] [place] | | | | | Anemia in | [place], [place] | [place] | | | | | ESRD | [address] | [address] Phone: | | | | | (end-stage | Phone: | [phone] | | | | | renal | [phone] | Fax: | | | | | disease) | Fax: | [phone] | | | | | ([facility]) | [phone] | | | | | | Procedures [...] West | renal disease) ([facility]) | | | | [address] | [place] | (Primary Dx) | | | | [place], [place] | [place], [place] | | | | | [address] | [address] | | | | | [phone] | | | +--------+ + + + [...] have offered her arrangements via the Renal GREASE MACHINE WORKER to obtain some meaningful counseling, but she [...] Will recheck her in 2 weeks. : Fork Fina Joy M.D., Pediatric Nephrology, [facility] documented in t his encounter Plan [...] [address] | | | | | | [place] [address] | | | | | | [phone] | | | | | | | | +--------+---------+ + + + documented as of this encounter Visit Diagnoses + + | Diagnosis | + + | ESRD (end stage renal disease) (HCC) - Primary End stage renal disease | + + documented in this encounter"
--- OUTSIDE RECORDS SUMMARY | ~2019-02-17 | XMS | Encounter Summary ---
Demographics + + + | Address | [address] | | | [place] [address] | + + + | Home Phone [...] | Author | [facility] | | | and [place] | + + + | Organization | [facility] | | [...] Team Providers + +------+ + | Care Attenuator Name | Role | Phone | + [...] + + | 11/15/ | Telephone | [facility] | George Torres RN | Lab Results | | 2019 | | [address] | | (Cytology report) | | | | [place] | | | | | | [address] | | | | | | [phone] | | | +--------+ + + + [...] | | | | | [place] [address] | | | | | | [phone] | | | | | | | | +--------+---------+ + + + documented as of this encounter Visit Diagnoses Not on filedocumented in this encounter"
--- OUTSIDE RECORDS SUMMARY | ~2019-02-17 | XMS | Encounter Summary ---
Demographics + + + | Address | [address] | | | [place] [address] | + + + | Home Phone [...] Author | [facility] | | | and [place]ana | + + + | Organization | [facility] | | | and [place]ana [...] Providers + +------+ + | Care Train Inspector Name | Role | Phone | [...] NEPHROLOGY [address] | M, DO [address] | | | | | [address] | [place], [address] | | | | | [place], [place] | [place], [place] | | | | | [address] | [address] | | | | | [phone] | | | +--------+ + + + [...] [address] | | | | | | [place] [address] | | | | | | [phone] | | | | | | | | +--------+---------+ + + + documented as of this encounter Visit Diagnoses Not on filedocumented in this encounter"
--- OUTSIDE RECORDS SUMMARY | ~2019-02-17 | XMS | Encounter Summary ---
Demographics + + + | Address | [address] | | | [place] [address] | + + + | Home Phone [...] | | | | | [place] [address] | | + + + + + | Thania Mallory | ECON | [address] | | | | | [place] [address] | | + + + + + | Deidra Weldon | ECON | [address] | | | | | [place] | | | | | [address] | | + + + + + Care Team Providers + +------+ + | Care Medical Psychotherapist Name | Role | Phone | + +------+ + PCP | Unavailable | + +------+ + Reason for Visit + + + | Reason | Comments | + + + | Transplant Form | social worker aide 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 | | Update | | [...] (Social | | | | [address] [facility] | [facility] | worker dates | | | | [place], [place] | [place], [place] | updated) | | | | [address] | [address] | | | | | [phone] | [phone] | | | | | | | [...] | | | | | | [place], [place] | | | | | | [address] | | | | | | [phone] | | | | | | | | +--------+ + + + + documented as of this encounter Visit Diagnoses Not on filedocumented in this encounter"
--- OUTSIDE RECORDS SUMMARY | ~2019-02-17 | XMS | Encounter Summary ---
Demographics + + + | Address | [address] | | | [place] [address] | + + + | Home Phone [...] + | Author | [facility] | | | and Josephana | + + + | Organization | [facility] | | | [...] Team Providers + +------+ + | Care Trimmer Sorter Name | Role | Phone | [...] + + | 01/23/ | Hospital | [facility] | Vivek Teran, | SOB (shortness of | | 2019 - | Encounter | [facility] | MD Brooks Caputovd | breath) (Primary | | | | CARE FLOOR [address] | [place] [address] | Dx); ESRD needing | | 01/26/ | | [address] | [phone] | dialysis ([facility]); | | 2019 | | [place], [place] | | Chronic pleural | | | | [address] | Omar Hatch MD [address] | effusion; | | | | [phone] | [address] | Noncompliance with | | | | | [place] [address] | renal dialysis | | | | | [phone] | ([facility]); Acute | | | | | | respiratory | | | | | Sotero Reinoso MD | distress; Anemia in | | | | | [address] | ESRD (end-stage | | | | | [place], [place] | renal disease) | | | | | [address] | ([facility]); At high risk | | | | | | for electrolyte | | | | | Usha Martínez MD | imbalance; ESRD on | | | | | [address] | hemodialysis ([facility]); | | | | | [place] [address] | Hyperphosphatemia; | | | | | [phone] | Noncompliance; | | | | | [...] note might be different from pierre coleman. [facility] Service: Hospitalist Discharge Summary [...] CHEST AP PORTABLE (01/07/2019); CHEST TWO VIEWS 30876 (01/06/2019); XR CHEST AP PORTABLE (12/13/2018); FINDINGS: [...] CHEST AP PORTABLE (01/07/2019); CHEST TWO VIEWS 90171 (01/06/2019); FINDINGS: Mild cardiomegaly. No pneumothorax. Interstitial [...] Confirmed by MUSE READ ONLY, -COMPUTER ([id number]), newspaper managing editor Luciano, Daniela ([id number]) on 01/24/2019 5:16: 19 AM BRIEF [...] Gram-positive bacteria 12/12/2018 Clotted dialysis access ([facility]) 2014 Congestive heart failure (HCC) ESRD (end stage renal disease) (HCC) HSP (Henoch-Schonlein purpura) nephritis ([facility]) 1987 Hypertension Pericardial effusion without cardiac tamponade 11/07/2018 Past Surgical History: Procedure Laterality Date ABDOMEN SURGERY AV FISTULA REPAIR 02/24/2014 LEFT Radical Cephalic Fistula Creation; Laterality: Left; Surgeon: Blake Chavarria MD ; Location: [facility] MAIN OR AV FISTULA REPAIR Left 03/07/2014 Procedure: AV FISTULA - GRAFT REPAIR/REVISION; Surgeon: Rik Simon MD; Location: [facility] OR; Service: Vascular; Laterality: Left; biopsy of kidney age 10 DIALYSIS FISTULA CREATION 04/08/2014 Procedure: DIALYSIS CATHETER - INSERTION; Surgeon: Rik Simon MD; Location: [facility] ; Service: Vascular; Laterality: N/A; tunneled catheter.br hemodialysis catheter KIDNEY BIOPSY Left 2003 OTHER SURGICAL HISTORY LAPAROSCOPIC PERITONEAL DIALYSIS CATHETER INSERTION - x2 OTHER SURGICAL HISTORY Right 07/2013 LAPAROSCOPIC PERITONEAL DIALYSIS CATHETER INSERTION - current dialysis access MWF dialysis OTHER SURGICAL HISTORY Left 06/24/2014 SUPERFICIALIZATION OF AV FISTULA - Procedure: AV FISTULA - SUPERFICIALIZATION; Surgeon: Emanuel Simon MD; Location: [facility] OR; Service: Vascular; Laterality: Left; OTHER SURGICAL HISTORY Left 04/08/2014 AV FISTULA PLACEMENT - Procedure: AV FISTULA; Surgeon: Rik Simon MD; Location: [facility]; Service: Vascular; Laterality: Left; cephalic OTHER SURGICAL HISTORY Left 03/07/2014 DECLOT GRAFT - Procedure: GRAFT - DECLOT; Surgeon: Rik Simon MD; Location: [facility] OR ; Service: Vascular; Laterality: Left; peritoneal [...] file. Follow up: Jonathan Alonso MD [address] [facility] [place] [address] Schedule an appointment as soon as possible [...] | | | | renal disease) ([facility]) | protocol | | | | [...] 1 tablet by | | 0 | 05//20 | | | (PHENERGAN) 25 mg | [...] as of this encounter Progress Notes Daniela Helms RN - 01/26/2019 11:37 AM PSTPt discharged [...] Chronic pleural effusion [J90] Recommendations: No acute SPECIAL MAKEUP FX ARTIST INSTRUCTOR indication Management of the right pleural effusion [...] case before the time of this encounter. Rneé Anguiano MD Kika Mcdaniels RN - 01/24/2019 [...] Kika Olivarez, RN at 01/24/2019 6:11 PM Ean, Veena Hernandez RN - 6:26 AM PSTPt has continued to have hypertension since admission, medicated with sc heduled carvedilol as well as PRN hydralazine. Pt also co pain at [facility] site for which she i s medicated x1 with Dilaudid. Pt medicated x1 with PRN Zofran for nausea. Pt continues to be dyspneic with accessory muscle usage when breathing. Oxygen saturations in mid 80's on RA, sats remain >90% on 2L supplemental O2. Chart check complete. Veena García, ABRIL documented in this e ncounter Plan of Treatment +--------+---------+ + + + | Date | Type | Specialty | Care Team | Description | +--------+---------+ + + + | 03/05/ | Office | Pulmonology | Denny Alexander | | | 2018 | Visit | | Deny Briggs MD [address] | | | | | [address] | | | | | | [place] [address] | | | | | | [phone] | | | | | | | [...] | PST | + +------+--------+ + + + + +--------+ + + | Name | Type | Priori | Associated Diagnoses | Order Schedule | | | | ty | | | + + +--------+ + + | Hemodialysis | Dialysis | Routin | | One Time for 1 | | Inpatient Settings | | e | | Occurrences starting | | | | | | 01/25/2019 until | | | | | | 01/25/2019 | + + +--------+ + + documented [...] R?MRN: | | | | | | [id number] | | | [id number] | | | riteri | | | [...] | | | St. | | | [place] | | | y | | | [...] | | | St. | | | [place] | | | y | | | [...] | | | St. | | | [place] | | | y | | | [...] | | | St | | | [place] | | | y | | | [...] St | | | | | | [place] | | | y | | | [...] | | | St. | | | [place] | | | y | | | [...] | | | St. | | | [place] | | | y H. | | [...] | | | St. | | | [place] | | | y H. | | [...] | | | St. | | | [place] | | | y H. | | [...] | | | St. | | | [place] | | | y H. | | [...] | | | St. | | | [place] | | | y H. | | [...] | | | St. | | | [place] | | | y H. | | [...] | | | MD | | | Central Office Repairer | | | al | | | [...] | | | [id number] | | | [id number] | | | eb | | | [...] | 1.7 - 2.4 mg/dL | [facility] | | | | performed at L, [address] | | LABORATORY | | | | [facility], | | | | | | [place] [address] | | | | + + + + + + + + | Specimen | + + | | + + + + + + + | Performing | Address | City/State/Zipcode | Phone Number | | Organization | | | | + + + + + | [facility] | [address] | [place] [address] | [phone] | + + + + + CBC [...] MPV | 10.6Comment: Testing | fl | [facility] | | | | performed at [facility], [address] | | LABORATORY | | | | [address], | | | | | | [place] [address] | | | | + + + + + + + + | Specimen | + + | | + + + + + + + | Performing | Address | City/State/Zipcode | Phone Number | | Organization | | | | + + + + + | [facility] | [address] | [place] [address] | [phone] | + + + + + Renal [...] | | | | | performed at [facility], [address] | | | | | | [address] [facility], | | | | | | [place] [address] | | | | + + + + + + + + | Specimen | + + | Blood | + + + + + + + | Performing | Address | City/State/Zipcode | Phone Number | | Organization | | | | + + + + + | [facility] | [address] | [place] [address] | [phone] | + + + + + Magnesium (01/25/2019 5:59 AM PST) + + + + + + | Component | Value | Ref Range | Performed | Pathologist | | | | | At | Signature | + + + + + + | Magnesium | 2.3Comment: Testing | 1.7 - 2.4 mg/dL | [facility] | | | | performed at [facility], [address] | | LABORATORY | | | | [address], | | | | | | [place] [address] | | | | + + + + + + + + | Specimen | + + | | + + + + + + + | Performing | Address | City/State/Zipcode | Phone Number | | Organization | | | | + + + + + | [facility] | [address] | [place] [address] | [phone] | + + + + + CBC [...] | | LABORATORY | | | | [address], | | | | | | [place] [address] | | | | + + + + + + + + | Specimen | + + | | + + + + + + + | Performing | Address | City/State/Zipcode | Phone Number | | Organization | | | | + + + + + | [facility] | [address] [facility] | [place] [address] | [phone] | + + + + + Renal [...] | | | | | performed at [facility], [address] | | | | | | [address] [facility], | | | | | | [place] [address] | | | | + + + + + + + + | Specimen | + + | Blood | + + + + + + + | Performing | Address | City/State/Zipcode | Phone Number | | Organization | | | | + + + + + | [facility] | [address] | [place] [address] | [phone] | + + + + + Iron [...] | | | | | [place] [address] | | | | + + + + + + + + | Specimen | + + | Blood | + + + + + + + | Performing | Address | City/State/Zipcode | Phone Number | | Organization | | | | + + + + + | [facility] | [address] [facility] | [place] [address] | [phone] | + + + + + Ferritin [...] | | | | | [place] [address] | | | | + + + + + + + + | Specimen | + + | Blood | + + + + + + + | Performing | Address | City/State/Zipcode | Phone Number | | Organization | | | | + + + + + | [facility] | [address] | [place] [address] | [phone] | + + + + + Creatine Kinase, Isoenzymes (01/24/2019 5:53 AM PST) + + + + + + | Component | Value | Ref Range | Performed | Pathologist | | | | | At | Signature | + + + + + + | CK-MM | 100Comment: Testing | 97 - 100 % | [facility] | | | | performed by [facility], | | LABORATORY | | | | [address], | | | | | | [place] [address] | | | | + + + + + + | CK-MB | 0Comment: Testing | 0 - 3 % | [facility] | | | | performed by [facility], | | LABORATORY | | | | [address], | | | | | | [place] [address] | | | | + + + + + + | CK-BB | 0Comment: Testing | 0 % | [facility] | | | | performed by [employer], | | LABORATORY | | | | [address], | | | | | | [facility] [address] | | | | + + + + + + | CK, Total | 156Comment: Testing | 24 - 173 U/L | [facility] | | | | performed at [employer], | | LABORATORY | | | | [address], [address], | | | | | | [place] [address] | | | | + + + + + + | CK-MACRO | 0 | Not Observed % | [facility] | | | TYPE 1 | | | LABORATORY | | + + + + + + | CK-MACRO | 0Comment: Testing | Not Observed % | [facility] | | | TYPE II | performed by [employer], | | LABORATORY | | | | [address] [facility], | | | | | | [facility] [address] | | | | + + + + + + + + | Specimen | + + | Blood | + + + + + + + | Performing | Address | City/State/Zipcode | Phone Number | | Organization | | | | + + + + + | [facility] | [address] | [place] [address] | [phone] | + + + + + Phosphorus (01/24/2019 5:53 AM PST) + + + + + + | Component | Value | Ref Range | Performed | Pathologist | | | | | At | Signature | + + + + + + | Phosphorus | 8.6 (H)Comment: Testing | 2.3 - 4.8 mg/dL | [facility] | | | | performed at [facility], [address] | | LABORATORY | | | | [address], | | | | | | [place] [address] | | | | + + + + + + + + | Specimen | + + | Blood | + + + + + + + | Performing | Address | City/State/Zipcode | Phone Number | | Organization | | | | + + + + + | [facility] | [address] | [place] [address] | [phone] | + + + + + Magnesium (01/24/2019 5:53 AM PST) + + + + + + | Component | Value | Ref Range | Performed | Pathologist | | | | | At | Signature | + + + + + + | Magnesium | 2.6 (H)Comment: Testing | 1.7 - 2.4 mg/dL | [facility] | | | | performed at [address], [address] | | LABORATORY | | | | [address], | | | | | | [place] [address] | | | | + + + + + + + + | Specimen | + + | Blood | + + + + + + + | Performing | Address | City/State/Zipcode | Phone Number | | Organization | | | | + + + + + | [facility] | [address] | [place] [address] | [phone] | + + + + + Basic [...] | 9.7 | 8.5 - 10.5 | [facility] | | | | | mg/dL | LABORATORY | | + + + + + + | Estimated | 4 (L)Comment: GFR <60: | >60 | [facility] | | | GFR | [...] | | | | | performed at [facility], [address] | | | | | | [facility], | | | | | | [place] [address] | | | | + + + + + + + + | Specimen | + + | Blood | + + + + + + + | Performing | Address | City/State/Zipcode | Phone Number | | Organization | | | | + + + + + | [facility] | [address] | [place] [address] | [phone] | + + + + + CBC [...] Blvd, | | | | | | [place] [address] | | | | | |Testing performed at [facility], [address], [place] [address] | | | | | | | | | | + + +---- + + + + + | Specimen | + + | Blood | + + + + + + + | Performing | Address | City/State/Zipcode | Phone Number | | Organization | | | | + + + + + | [facility] | [address] | [place] [address] | [phone] | + + + + + Troponin I (01/24/2019 5:53 AM PST) + + + + + + | Component | Value | Ref Range | Performed | Pathologist | | | | | At | Signature | + + + + + + | Troponin I | 0.228 (H)Comment: 0.04 | 0.00 - 0.04 | [facility] | | | | ng/mL [...] | | | | | | [facility];[address] [place] [address] | | | | | | [facility];[place] [address] | | | | + + + + + + + + | Specimen | + + | Blood | + + + + + + + | Performing | Address | City/State/Zipcode | Phone Number | | Organization | | | | + + + + + | [facility] | [address] | [place] [address] | [phone] | + + + + + XR [...] CHEST AP PORTABLE (01/07/2019); CHEST TWO VIEWS 76088 (01/06/2019); | | | FINDINGS: Mild cardiomegaly. [...] PORTABLE (01/07/2019); CHEST | | TWO VIEWS 64847 (01/06/2019); | | | | FINDINGS: | [...] | | | | | Blvd;[place] [address] | | | | + + + + + + + + | Specimen | + + | Blood | + + + + + + + | Performing | Address | City/State/Zipcode | Phone Number | | Organization | | | | + + + + + | [facility] | [address] | [place] [address] | [phone] | + + + + + Phosphorus (01/23/2019 11:26 PM PST) + + + + + + | Component | Value | Ref Range | Performed | Pathologist | | | | | At | Signature | + + + + + + | Phosphorus | 7.9 (H)Comment: Testing | 2.3 - 4.8 mg/dL | [facility] | | | | performed at [facility];[address] | | LABORATORY | | | | [address];[place], [place] | | | | | | [address] | | | | + + + + + + + + | Specimen | + + | Blood | + + + + + + + | Performing | Address | City/State/Zipcode | Phone Number | | Organization | | | | + + + + + | [facility] | [address] | [place] [address] | [phone] | + + + + + Troponin I (01/23/2019 11:26 PM PST) + + + + + + | Component | Value | Ref Range | Performed | Pathologist | | | | | At | Signature | + + + + + + | Troponin I | 0.169 (H)Comment: 0.04 | 0.00 - 0.04 | [facility] | | | | ng/mL [...] | | | | | | [facility];[address] | | [address];[place] [address] | | | | + + + + + + + + | Specimen | + + | Blood | + + + + + + + | Performing | Address | City/State/Zipcode | Phone Number | | Organization | | | | + + + + + | [facility] | [address] | [place] [address] | [phone] | + + + + + Comprehensive [...] [facility];[address] | | | | | | [facility];[place], [place] | | | | | | [address] | | | | + + + + + + + + | Specimen | + + | Blood | + + + + + + + | Performing | Address | City/State/Zipcode | Phone Number | | Organization | | | | + + + + + | [facility] | [address] | [place] [address] | [phone] | + + + + + CBC [...] | LABORATORY | | | | [place];[address] [facility] | | | | | | Blvd;[place] [address] | | | | + + + + + + + + | Specimen | + + | Blood | + + + + + + + | Performing | Address | City/State/Zipcode | Phone Number | | Organization | | | | + + + + + | [facility] | [address] | [place] [address] | [phone] | + + + + + XR [...] (01/07/2019); CHEST TWO | | | VIEWS 06390 (01/06/2019); XR CHEST AP PORTABLE (12/13/2018); | [...] CHEST AP PORTABLE (01/07/2019); CHEST TWO VIEWS 29952 (01/06/2019); XR | | CHEST AP PORTABLE [...] | | | Signed by: Eliza Marinelli, Pushpender | | Sign Date/Time: 01/23/2019 11:26 [...] | | | | | ONLY, -COMPUTER (280), | | | | | | newspaper managing editor Daniela Luciano | | | | | | 18 on 01/24/2019 | | | | | [...] correct | | | patient, procedure, equipment, manager technical support and site/side marked as | | [...] space: 6th Puncture method: | | | zaye-[id number]-[id number] catheter Number of attempts: 1 Drainage amount: [...] + + | Noncompliance with renal dialysis ([facility]) Noncompliance with renal dialysis | + + | Acute respiratory distress Other pulmonary insufficiency, not elsewhere classified | + + | Anemia in ESRD (end-stage renal disease) ([facility]) Anemia in chronic kidney disease | + + | At high risk for electrolyte imbalance | + + | ESRD on hemodialysis ([facility]) End stage renal disease | + + | Hyperphosphatemia Disorders of phosphorus metabolism | + + | Noncompliance Personal history of noncompliance with medical treatment, presenting | | hazards to health | + + | Recurrent right pleural effusion Unspecified pleural effusion | + + | Hypoalbuminemia Other disorders of plasma protein metabolism | + + | Uncontrolled hypertension Unspecified [...] | | | | Little 01/24/19 at 0305 | | | | [...] | | | | | dose on [facility] 01/24/19 at 0900 | | AM [...] | | | | | | Starting [facility] 01/24/19 at 0304 | | | [...] | | Arm | | Intravenous, ONCE, [facility] 01/24/19 | | AM PST | | | | | at 0125, For 1 dose | | | | | | + +-------+ +--------+---+--------+ +---+---+ | | | +---+---+ + +-------+ +--------+---+---+ | HYDROmorphone (DILAUDID) | Given | 01/25/20 | 0.5 mg | | | | injection 0.5 mg 0.5 mg, | | 19 1:13 | | | | | Intravenous, ONCE, [facility] 01/24/19 | | PM PST | | | | | at 1215, For 1 dose | | | | | | + +-------+ +--------+---+---+ +---+---+ | | | +---+---+ + +-------+ +------+---+---+ | HYDROmorphone (DILAUDID) | Given | 01/25/20 | 1 mg | | | | injection 1 mg 1 mg, | | 19 4:20 | | | | | Intravenous, ONCE, [facility] 01/24/19 | | AM PST | | | | | at 0310, For 1 dose | | | | | | + +-------+ +------+---+---+ + +---+ | | | + +---+ | labetalol (TRANDATE) 5 mg/mL | | | injection 10 mg 10 mg, | | | Intravenous, EVERY 4 HOURS PRN, | | | SBP>160, Starting Mon01/25/19 at | | | 0839 | | + +---+ | | | + +---+ | lidocaine (LIDODERM) 5% patch 1 | | | patch 1 patch, Transdermal, | | | DAILY, First dose on [facility] 01/24/19 | | | at 1430, Apply for [...] 19 1:46 | | | | | [facility] 01/24/19 at 0030, For 1 dose [...] PST | | | | | Starting [facility] 01/24/19 at 0355, | | | [...] 19 2:47 | | | | | Little 01/24/19 at 0240, For 1 dose | [...] nonresponsive to | | | Tylenol, Starting Little 01/24/19 at | | | 1409 | | + +---+ | | | + +---+ + +-------+ +-------+---+---+ | pantoprazole (PROTONIX) DR | Given | 01/27/20 | 40 mg | | | | tablet 40 mg 40 mg, Oral, DAILY | | 19 8:00 | | | | | BEFORE BREAKFAST, First dose on | | AM PST | | | | | [facility] 01/24/19 at 0630, Do not cut | [...] | | Arm | | Intravenous, ONCE, [facility] 01/24/19 | | AM PST | [...] | | | | | | | [facility] 01/24/19 at 0800, Do not cut | [...] - PRN, Hypotension, | | | Starting [facility] 01/24/19 at 0833, | | | Treatment [...] | | | | | dose on [facility] 01/24/19 at 0900, | | | | | | | Treatment date(s): 01/24/2019, | | | | | | | Dialysis | | | | | | + +-------+ +--------+---+---+ +-------+ +--------+---+---+ | Given | 01/26/20 | 10 mLs | | | | | 19 9:00 | | | | | | PM PST | | | | +-------+ +--------+---+---+ | Given | 01/26/20 | 10 mLs | | | | | 19 9:57 | | | | | | AM PST | | | | +-------+ +--------+---+---+ +---+---+ | | | +---+---+ documented in this encounter
--- OUTSIDE RECORDS SUMMARY | ~2019-02-17 | XMS | Encounter Summary ---
Demographics + + + | Address | [address] | | | [place] [address] | + + + | Home Phone [...] Author | [facility] | | | and Josephana | + + + | Organization | [facility] [...] Providers + +------+ + | Care Fixture Designer Name | Role | Phone | [...] NEPHROLOGY [address] | M, DO [address] | | | | | [address] | [place] | | | | | [place], [place] | [place], [place] | | | | | [address] | [address] | | | | | [phone] | | | +--------+ + + + [...] of this encounter Progress Marilyn Jennings - 08/15/2014 9:43 AM PDTManually faxed IR [...] [place] | | | | | | [place] [address] | | | | | | [phone] | | | | | | | | +--------+---------+ + + + documented as of this encounter Visit Diagnoses Not on filedocumented in this encounter"
--- OUTSIDE RECORDS SUMMARY | ~2019-02-17 | XMS | Encounter Summary ---
Demographics + + + | Address | [address] | | | [place] [address] | + + + | Home Phone [...] | | | | | [place] [address] | | + + + + + | Thania Mallory | ECON | [address] | | | | | [place] [address] | | + + + + + | Deidra Weldon | ECON | [address] | | | | | [place] | | | | | [address] | | + + + + + Care Team Providers + +------+ + | Care Prep Person Name | Role | Phone | [...] Hoffmann | | | | | ANNALISA [facility] | [facility] | | | | | [address] [place], [place] | [place], [place] | | | | | [address] | [address] | | | | | [phone] | | | +--------+ + + + [...] Denise | | | | | | [place], [place] | | | | | | [address] | | | | | | [phone] | | | | | | | | +--------+ + + + + documented as of this encounter Visit Diagnoses Not on filedocumented in this encounter"
--- OUTSIDE RECORDS SUMMARY | ~2019-02-17 | XMS | Encounter Summary ---
Demographics + + + | Address | [address] [facility] | | | [place] [address] | + + + | Home Phone [...] | | | | | [place] [address] | | + + + + + | Thania Mallory | ECON | [address] | | | | | [place] [address] | | + + + + + | Deidra Weldon | ECON | [address] | | | | | [place] | | | | | [address] | | + + + + + Care Team Providers + +------+ + | Care Mill Dresser Name | Role | Phone | [...] Coordinators 3181 | RN [address] [facility] | | | | | ANNALISA [facility] | [facility] | | | | | Rd [place], [place] | [place], [place] | | | | | [address] | [address] | | | | | [phone] | | | +--------+ + + + [...] | | | | | | [place], [place] | | | | | | [address] | | | | | | [phone] | | | | | | | | +--------+ + + + + documented as of this encounter Visit Diagnoses Not on filedocumented in this encounter"
--- OUTSIDE RECORDS SUMMARY | ~2019-02-17 | XMS | Encounter Summary ---
Demographics + + + | Address | [address] | | | [place] [address] | + + + | Home Phone [...] Author | [facility] | | | and Josephana | + + + | Organization | [facility] | [...] Team Providers + +------+ + | Care Photo Technician Name | Role | Phone | [...] + + | 11/15/ | Telephone | [facility] | George Torres RN | Lab Results | | 2019 | | [address] | | (Cytology report) | | | | [place] | | | | | | [address] | | | | | | [phone] | | | +--------+ + + + [...] | 2019 | Visit | | Deny rBiggs MD [address] | | | | | | [address] | | | | | | [place] [address] | | | | | | [phone] | | | | | | | | +--------+---------+ + + + documented as of this encounter Visit Diagnoses Not on filedocumented in this encounter"
--- OUTSIDE RECORDS SUMMARY | ~2019-02-17 | XMS | Clinical Summary ---
Demographics + + + | Address | [address] | | | [place] [address] | + + + | Home Phone [...] + | Author | [facility] (Historical as of | | | 10-20-18) | + + + | Organization | [facility] (Historical as of | | | 10-20-18) [...] Team Providers + +------+ + | Care Scoop Driver Name | Role | Phone | [...] | 9 | + + + + Immunizations + + + + | Name [...] | Left: | SYNOVIS | | | [id number] | | 0.8x8cm - [id number]: | | Arm | | | | [...] | | | COVIDIEN | | | [id number] | | 23cmExplanted: Qty: 1 on | | | | | | 3404 / | | 04/08/2014 | | | | | | | | | | | | | | /[id number] | | | | | | | [...] +------+-------+ + | MEDICARE | MEDICA | [id number] | | | [address] | | | RE | | | | [place] [address] | | | IP-OP | | | | | + +--------+ +------+-------+ + | MEDICAID | EASTER | [id number] | | | [address] | | | N | | | | [place] | | | [place] | | | | [address] | | | APARTMENT MAINTENANCE TECHNICIAN | | | | | + +--------+ [...] | kamron | | | 1423 | [phone] | + +--------+ +--------+ + +
--- OUTSIDE RECORDS SUMMARY | ~2019-02-17 | XMS | Encounter Summary ---
Demographics + + + | Address | [address] | | | [place] [address] | + + + | Home Phone [...] | Author | [facility] | | | and Josephana | + + + | Organization | [facility] [...] Team Providers + +------+ + | Care Hospital Internship Name | Role | Phone | + +------+ + | Jonathan Alonso MD | PCP | | + +------+ + Encounter Details +--------+ + + + + | Date | Type | Department | Care Team | Description | +--------+ + + + + | 03/27/ | Orders Only | [facility] | Rik Simon MD | | | 2014 | | VASCULAR SURGERY | [address] | | | | | ULTRASOUND [address] | [place], [place] | | | | | [place] | [address] | | | | | [place], [place] | [phone] | | | | | [address] | | | | | | [phone] | | | +--------+ + + + [...] | 03/05/ | Office | Pulmonology | [address] | | | 2019 | Visit | | Deny Briggs MD [address] | | | | | | [address] | | | | | | [place] [address] | | | | | | [phone] | | | | | | | [...]
--- OUTSIDE RECORDS SUMMARY | ~2019-02-17 | XMS | Encounter Summary ---
Demographics + + + | Address | [address] | | | [place] [address] | + + + | Home Phone [...] | | | | | [place] [address] | | + + + + + | Thania Mallory | ECON | [address] | | | | | [place] [address] | | + + + + + | Deidra Weldon | ECON | [address] | | | | | [place] | | | | | [address] | | + + + + + Care Team Providers + +------+ + | Care Experimental Mechanic Spacecraft Name | Role | Phone | + [...] | | | | [address] | [place], [place] | | | | | | [place] | [address] | | | | | | [place] | Phone: | | | | | | [address] | [phone] | | | | | | Phone: | | | | | | | [phone] | | | | | | | Fax: | | | | | | | [phone] | | +--------+--------+ + + + + Encounter Details +--------+---------+ + + + | Date | Type | Department | Care Team | Description | +--------+---------+ + + + | 05/11/ | Office | Specialty Clinics | Sudhakar Joy | [facility] | | 2015 | Visit | at [facility] [address] | DMD [address] | ([facility] | | | | [place] Mailcode: | [address] | purpura) nephritis | | | | [facility] | [place], [place] | (Primary Dx); Anemia | | | | [place] | [address] | of chronic kidney | | | | [address] | [phone] | failure, stage 5 | | | | [phone] | | (HCC) | +--------+---------+ + + [...] 11:19 AM PSTKeep working on the lo Loop Trolley phosphorus and financial plan See me in [...] [address] Mail code [facility] [place], [place] [id number] Estrella Brennan MA - 05/12/2015 10:48 AM [...] Denise | | | | | | [place], [place] | | | | | | [address] | | | | | | [phone] | | | | | | | [...]
--- OUTSIDE RECORDS SUMMARY | ~2019-02-17 | XMS | Encounter Summary ---
Demographics + + + | Address | [address] | | | [place] [address] | + + + | Home Phone [...] | Author | [facility] | | | and Josephana | + + + | Organization | [facility] | | [...] Providers + +------+ + | Care Jet Handler Name | Role | Phone | [...] stage renal | [address] | [address] [place] [address] | | | | | disease) | Shun Griffin | Jaciel Gotti | | | | | ([facility]) | [address] | [address] | | | | | Anemia in | [place], [place] | [place] | | | | | ESRD | [address] | [address] Phone: | | | | | (end-stage | Phone: | [phone] | | | | | renal | [phone] | Fax: | | | | | disease) | Fax: | [phone] | | | | | ([facility]) | [phone] | | | | | | Procedures [...] | | [address] | [place], [address] | (Primary Dx) | | | | [place], [place] | [place], [place] | | | | | [address] | [address] | | | | | [phone] | | | +--------+ + + + [...] DAVIDSON | | | | | | [place] [address] | | | | | | [phone] | | | | | | | | +--------+---------+ + + + documented as of this encounter Visit Diagnoses + + | Diagnosis | + + | ESRD (end stage renal disease) (HCC) - Primary End stage renal disease | + + documented in this encounter"
--- OUTSIDE RECORDS SUMMARY | ~2019-02-17 | XMS | Encounter Summary ---
Demographics + + + | Address | [address] | | | [place] [address] | + + + | Home Phone [...] [facility] | | | and [place]ana | + + + | Organization | [facility] | | | [...] Team Providers + +------+ + | Care Chemical Process Engineer Name | Role | Phone | [...] [address] | renal disease) ([facility]) | | | | [address] | [place], [address] | (Primary Dx) | | | | [place], [place] | [place], [place] | | | | | [address] | [address] | | | | | [phone] | | | +--------+ + + + [...] DAVIDSON | | | | | | [place] [address] | | | | | | [phone] | | | | | | | | +--------+---------+ + + + documented as of this encounter Visit Diagnoses + + | Diagnosis | + + | ESRD (end stage renal disease) (HCC) - Primary End stage renal disease | + + documented in this encounter"
--- OUTSIDE RECORDS SUMMARY | ~2019-02-17 | XMS | Encounter Summary ---
Demographics + + + | Address | [address] | | | [place] [address] | + + + | Home Phone [...] Author | [facility] | | | and Josephana | + + + | Organization | [facility] | | | and [...] Providers + +------+ + | Care Porcelain Slusher Name | Role | Phone | + +------+ + PCP | Unavailable | + +------+ + Encounter Details +--------+ + + + + | Date | Type | Department | Care Team | Description | +--------+ + + + + | 04/28/ | Hospital | [facility] GENER[facility] OP | Nereida Roberson | | | 2009 | Encounter | CONVERSION | MD Eufemia [address] | | | | | DEPARTMENT [address] [place] | [place] [address] | | | | | [place], [place] | [phone] | | | | | [address] | | | | | | [phone] | | | +--------+ + + + [...] DAVIDSON | | | | | | [place] [address] | | | | | | [phone] | | | | | | | | +--------+---------+ + + + documented as of this encounter Visit Diagnoses Not on filedocumented in this encounter"
--- OUTSIDE RECORDS SUMMARY | ~2019-02-17 | XMS | Encounter Summary ---
Demographics + + + | Address | [address] | | | [place] [address] | + + + | Home Phone [...] Author | [facility] | | | and Josephana | + + + | Organization | [facility] | | [...] Team Providers + +------+ + | Care Overhead Cleaner Maintainer Name | Role | Phone | + +------+ + PCP | Unavailable | + +------+ + Encounter Details +--------+ + + + + | Date | Type | Department | Care Team | Description | +--------+ + + + + | 09/30/ | Orders Only | [facility] | Irish Cramer | | | 2015 | | NEPHROLOGY [address] | M, RN | | | | | [address] [facility] [address] | | | | | | [place] | | | | | | [address] | | | | | | [phone] | | | +--------+ + + + [...] DAVIDSON | | | | | | [place] [address] | | | | | | [phone] | | | | | | | | +--------+---------+ + + + documented as of this encounter Visit Diagnoses Not on filedocumented in this encounter"
--- OUTSIDE RECORDS SUMMARY | ~2019-02-17 | XMS | Encounter Summary ---
Demographics + + + | Address | [address] [facility] [place] [address] | | | [place] [address] | + + + | Home Phone [...] | | | | | [place] [address] | | + + + + + | Thania Mallory | ECON | [address] | | | | | [place] [address] | | + + + + + | Deidra Weldon | ECON | [address] | | | | | [place] | | | | | [address] | | + + + + + Care Team Providers + +------+ + | Care Guest Services Associate Name | Role | Phone | [...] | Update | | | | ANNALISA [facility] | [facility] | | | | | Rd [place], [place] | [place], [place] | | | | | [address] | [address] | | | | | [phone] | | | +--------+ + + + [...] Denise | | | | | | [place] | | | | | | [address] | | | | | | [phone] | | | | | | | | +--------+ + + + + documented as of this encounter Visit Diagnoses Not on filedocumented in this encounter"
--- OUTSIDE RECORDS SUMMARY | ~2019-02-17 | XMS | Encounter Summary ---
Demographics + + + | Address | [address] | | | [place] [address] | + + + | Home Phone [...] | | | | | [place] [address] | | + + + + + | Thania Mallory | ECON | [address] | | | | | [place] [address] | | + + + + + | Deidra Weldon | ECON | [address] | | | | | [place] | | | | | [address] | | + + + + + Care Team Providers + +------+ + | Care Pharmacy Technician Program Director Name | Role | Phone | [...] | ANNALISA [facility] | [facility] | | | | | Rd [place], [place] | [place], [place] | | | | | [address] | [address] | | | | | [phone] | | | +--------+ + + + [...] Denise | | | | | | [place] | | | | | | [address] | | | | | | [phone] | | | | | | | | +--------+ + + + + documented as of this encounter Visit Diagnoses Not on filedocumented in this encounter"
--- OUTSIDE RECORDS SUMMARY | ~2019-02-17 | XMS | Clinical Summary ---
Demographics + + + | Address | [address] | | | [place] [address] | + + + | Home Phone [...] | | | | | [place] [address] | | + + + + + | Thania Mallory | ECON | [address] | | | | | [place] [address] | | + + + + + | Deidra Weldon | ECON | [address] | | | | | [place], [place] | | | | | [address] | | + + + + + Care Team Providers + +------+ + | Care Glove Turner And Former Name | Role | Phone | + +------+ + | Jonathan Alonso MD | PCP | | + +------+ + Source Comments DANILO is fully live on both EpicCare Ambulatory and EpicCare InPatient.[facility] + + + + + + [...] Denise | | | | | | [place], [place] | | | | | | [address] | | | | | | [phone] | | | | | | | [...] | | | | | | | [address] | | + +--------+ +--------+ + +--------+ | ACCOUNTANT CERTIFIED PUBLIC MEDICAID | ACCOUNTANT CERTIFIED PUBLIC | [id number] | Effect | | | [...] | RENAL | | for | | [place], | | | | RECIPI | | all | | [place] [address] | | | | ENT | | [...] | | al/Fam | | 1995 | [phone] | [address] [place] | | | [place] | | | 2 (Home) | [address] | | | | | | [phone] | | | | | | | 0 (Work) | | + +--------+ +--------+ + + | CORY ALVES | Wanderbhavin | Mother | [birth year] | | [address] | | | l | | 190 | [phone] | 3 [place] | | | Gamal | | | 2 (Home) | [address] | | | g | | | | | + +--------+ +--------+ + +
--- OUTSIDE RECORDS SUMMARY | ~2019-02-17 | XMS | Encounter Summary ---
Demographics + + + | Address | [address] | | | [place] [address] | + + + | Home Phone [...] | | | | | [place] [address] | | + + + + + | Thania Mallory | ECON | [address] | | | | | [place] [address] | | + + + + + | Deidra Weldon | ECON | [address] | | | | | [place] | | | | | [address] | | + + + + + Care Team Providers + +------+ + | Care Land Surveyor Name | Role | Phone | [...] | | | | | | MD [address] | [address] | | | | | | Keven | Mailcode: | | | | | | Hospital | [facility] | | | | | | [address] | [place] | | | | | | [address] | [place], [place] | | | | | | [place] | [address] | | | | | | [place] | Phone: | | | | | | [address] | [phone] | | | | | | Phone: | | | | | | | [phone] | | | | | | | Fax: | | | | | | | [phone] | | +--------+--------+ + + + + Encounter Details +--------+---------+ + + + | Date | Type | Department | Care Team | Description | +--------+---------+ + + + | 08/17/ | Office | Specialty Clinics | Sudhakar Joy | Anemia of chronic | | 2016 | Visit | at [facility] [address] | DMD [address] [facility] | kidney failure, | | | | [place] Mailcode: | [address] | stage 5 (HCC) | | | | [facility] [address] | [place], [place] | (Primary Dx); HSP | | | | [place] | [address] | (Jada-[place]n | | | | [address] | [phone] | purpura) nephritis | | | | [phone] | | | +--------+---------+ + + + [...] good. She has moved into a new [facility]. She has collected enough money to get [...] [address] Mail code [facility] [place], [place] [address] documented in this encounter Plan of Treatment +--------+ + + + + | Date | Type | Specialty | Care Team | Description | +--------+ + + + + | 05/04/ | Hospital | Adult Acute Care | El Starr MD | | | 2022 | Encounter | | [address] | | | | | | [place], [place] | | | | | | [address] | | | | | | [phone] | | | | | | | [...]
--- OUTSIDE RECORDS SUMMARY | ~2019-02-17 | XMS | Encounter Summary ---
Demographics + + + | Address | [address] | | | [place] [address] | + + + | Home Phone [...] | | | | | [place] [address] | | + + + + + | Thania Mallory | ECON | [address] | | | | | [place] [address] | | + + + + + | Deidra Weldon | ECON | [address] | | | | | [place] | | | | | [address] | | + + + + + Care Team Providers + +------+ + | Care Delivery Engineer Name | Role | Phone | + +------+ + | Shahid Camargo MD | PCP | | + +------+ + Encounter Details +--------+ + + + + | Date | Type | Department | Care Team | Description | +--------+ + + + + | 12/20/ | Hospital | Radiology at [facility] | | | | 2012 | Encounter | [address] [facility] | | | | | | Mailcode: [address] | | | | | | [address] | | | | | | [place], [place] | | | | | | [address] | | | | | | [phone] | | | +--------+ + + + [...] Denise | | | | | | [place], [place] | | | | | | [address] | | | | | | [phone] | | | | | | | [...] | e | 9:29 AM | MEDICARE 3398 | procedure are in the | | [...]
--- OUTSIDE RECORDS SUMMARY | ~2019-02-17 | XMS | Encounter Summary ---
Demographics + + + | Address | [address] | | | [place] [address] | + + + | Home Phone [...] Author | [facility] | | | and Josephana | + + + | Organization | [facility] | [...] Team Providers + +------+ + | Care Horticulture Instructor Name | Role | Phone | + +------+ + | Tien Nicholson MD | PCP | | + +------+ + Encounter Details +--------+ + + + + | Date | Type | Department | Care Team | Description | +--------+ + + + + | 08/20/ | Hospital | [facility] | Ramón Dunn | Non-cardiogenic | | 2019 - | Encounter | [facility] | MD Juan Alberto [address] | pulmonary edema | | | | CARE FLOOR [address] [place], [place] | | | 08/23/ | | [address] | [address] | | | 2019 | | [place], [place] | | | | | | [address] | | | | | | [phone] | | | +--------+ + + + [...] 1300 Date of Service: 08/23/18818 Status: Signed Payroll Representative: Paty Kline DO (Physician) Patient: Dara Weldon [...] [facility] [place] on 08/21 for dyspnea and underwent right t horacentesis with removal of 2.5L of fluid. Patient was sent home after the procedure. Muriel rtly thereafter patient became very short of breath and started having pinkish frothy sputum . Patient also developed right-sided chest pain over area of thoracentesis. She returned t o emergency department of [facility]. Patient was tachycardic and short of b reath but was saturating well on room air. Chest x-ray showed pulmonary edema of right bridgette g but left lung was reportedly normal. Patient was transferred to [facility] for acute hypoxic respiratory failure [...] Nicholson MD [address] [place] [id number] Medication List CHANGE how you take these [...] | | | renal disease) ([facility]) | protocol | | | [...] 08/23/181305 Date of Service: 08/23/181305 Status: Signed Payroll Representative: Mitzy Schilling RN (Registered Nurse) Pt A&Ox4, [...] Date of Service: 08/23/18 1144 Status: Signed Payroll Representative: Patria Norman RN (Registered Nurse) CM placed call to Pts PCP and they will contact pt to schedule follow up appointment as gopal n as possible. CM placed call to [facility] Pulmonology to attempt to move [...] 08/23/187 Date of Service: 08/23/181136 Status: Signed Payroll Representative: Mitzy Schilling RN (Registered Nurse) Resumed care from ABRIL Carranza. Agree with assessments thus far. Will continue to monitor. Mitzy Schilling RN onver arturo Transaction, Provider Unknown - 08/23/2018 2:34 AM PDT Nurse Progress Note by Hannah Madrigal RN at 08/23/184 Author: Hannah Madrigal RN Service: (none) Author Type: Registered Nurse Filed: 08/23/18 0530 Date of Service: 08/23/18233 Status: Signed Payroll Representative: Hannah Madrigal RN (Registered Nurse) VSS, pt [...] 08/22/181827 Date of Service: 08/22/181823 Status: Signed Payroll Representative: Paco Macedo RN (Registered Nurse) Patient is [...] 08/22/181808 Date of Service: 08/22/181800 Status: Signed Payroll Representative: Brent Greenberg () technical sales support manager appreciated. Pt sitting up in bed. Pt [...] to find a grief support group in [place] where she lives. Chp affirmed this as an excellent idea. Chp assured pt of continuing g ood thoughts for pt. Pt thanked p for visit. Chaplain Brent Greenberg pPaty samson DO - 08/22/2018 2:55 PM PDT Progress Notes by Paty Kline DO at 08/22/18 2500 Author: Paty Kline DO Service: Hospitalist Author Type: Physician Filed: 08/22/18 5345 Date of Service: 08/22/18 2587 Status: Addendum Payroll Representative: Paty Kline DO (Physician) Related Notes: Original Note by Paty Kline DO (Physician) filed at 08/22/18 5098 [facility] Service: Hospitalist Progress Note Hospital Day: LOS: [...] May 2018 presented to emergency department of [facility] in [place] this morning and underwent right thoracentesis. Patient was sent home after the procedure. However patient became very short of breath and started havi ng pinkish frothy sputum. Patient also developed right-sided chest pain over area of thorac entesis. Hence she returned to emergency department of [facility]. Patient w as tachycardic and short of breath but was saturating well on room air. Chest x-ray showed pulmonary edema of right lung but left lung was normal as per ED physician." Patient was transferred to [facility] for monitoring as she will [...] 08/22/18932 Date of Service: 08/22/18928 Status: Signed Payroll Representative: Jessica Martell RN (Registered Nurse) 08/22/18922 Discharge Planning Evaluation Admitting Diagnosis Non-cardiogenic pulmonary edema Readmission No Living Arrangements Alone Support Systems Friends/neighbors;Family members Type of Residence Private residence House type Apartment Bathrooms on 1st Floor 1-Full Independent with ADL's Yes Independent with Mobility Yes Home Care Services No Caregiver after Discharge No Mental Status Oriented Prior functional status independent Power of Technology Applications Consultant No Anticipated Discharge Plan Post Acute Care Needs None at this time Plan communicated to patient/family Yes Resources Financial concerns Comment (needs met but uses food bank and family/neighbors assist) Transportation issues No (friends assist w/transport to HD and appointments) Patient/Family concerns No Prescription Plan Yes Name of Pharmacy [facility] - [place], [place] Previous home health equipment No Vascular [...] concerns and states she uses hemodialysis at [facility] on Mon, Wed, Fri but denies [...] 08/22/18435 Date of Service: 08/22/18433 Status: Signed Payroll Representative: Jaymie Tafoya RN (Registered Nurse) Pt currently [...] 08/21/181831 Date of Service: 08/21/181828 Status: Signed Payroll Representative: Luz Pablo RN (Registered Nurse) Complains of rib/upper abdomen pain. Medicated, pain improved. Ambulating in room. HD today , 2.7L off. HD in a.m. At 0600. End of shift review complete. Paty Godinez DO - 08/21/2018 7:24 AM PDT Progress Notes by Paty Kline DO at 08/21/18 0724 Author: Paty Kline DO Service: Hospitalist Author Type: Physician Filed: 08/21/18 7642 Date of Service: 08/21/18723 Status: Signed Payroll Representative: Paty Kline DO (Physician) [facility] Service: Hospitalist Progress Note Hospital Day: LOS: [...] May 2018 presented to emergency department of [facility] in [place] this morning and underwent right thoracentesis. Patient was sent home after the procedure. However patient became very short of breath and started havi ng pinkish frothy sputum. Patient also developed right-sided chest pain over area of thorac entesis. Hence she returned to emergency department of [facility]. Patient w as tachycardic and short of breath but was saturating well on room air. Chest x-ray showed pulmonary edema of right lung but left lung was normal as per ED physician." Patient was transferred to [facility] for monitoring as she will [...] om the original. Nurse Progress Note by nAahy Springer RN at 08/21/18 4070 Author: Anahy Springer RN Service: (none) Author Type: Registered Nurse Filed: 08/21/18 5576 Date of Service: 08/21/18 7557 Status: Addendum Payroll Representative: Anahy Springer RN (Registered Nurse) Related Notes: Original Note by Anahy Springer RN (Registered Nurse) filed at 08/21/18 4347 VSS. Pt c/o pain x2, pt medicated [...] 08/20/181901 Date of Service: 08/20/181901 Status: Signed Payroll Representative: Kacy Moody RPH (Pharmacist) Clinical Pharmacy Note: Renal Monitoring Serum creatinine: 8.68 mg/dL (H) 08/20/181742 Estimated creatinine clearance: 9.9 mL/min (A) Pharmacy dosing for renal function per Dr. Dunn Currently there are no medications needing to be adjusted. Pharmacy will continue to monito r for changes in medication orders and in renal function and adjust accordingly. Anil Fam 08/20/2018 7:02 PM docume nted in this [...] | | | | | [place] [address] | | | | | | [phone] | | | | | | | [...] [place];[address] | | | | | | [facility];[place], [place] | | | | | | [address] | | | | + + + [...] LAB | | | | performed at [facility], [address] | | | | | | [facility], | | | | | | [place] [address] | | | | | |MACRO | | | | | |Testing performed at [facility], [facility] [place] [address] | | | | | | | [...] EXTERNAL | | | | performed at [facility], [address] | | LAB | | | | [address], | | | | | | [place] [address] | | | | + + + [...] EXTERNAL | | | | performed at [facility], [address] | | LAB | | | | [address], | | | | | | [place] [address] | | | | + + + [...] | | | | | performed at [facility], [address] | | | | | | [address], | | | | | | [place] [address] | | | | + + + [...] performed at [facility] | | LAB | | | | [address];[place], [place] | | | | | | [address] | | | | + + + [...] performed at [facility];[address] | | | | | | [facility];[place], [place] | | | | | | [address] | | | | + + + [...]
--- OUTSIDE RECORDS SUMMARY | ~2019-02-17 | XMS | Encounter Summary ---
Demographics + + + | Address | [address] | | | [place] [address] | + + + | Home Phone [...] + | Author | [facility] | | | and [place]ana | + + + | Organization | [facility] [...] Team Providers + +------+ + | Care Gear Machine Operator General Name | Role | Phone | + [...] + | 03/05/ | Clinical | [facility] | Blake Chavarria | End stage renal | | 2013 | Support | SURGERY [address] | MD Antonieta, FACS [address] | failure on dialysis | | | | [place], [place] | [facility] | ([facility]) (Primary Dx) | | | | [address] | [place] [address] | | | | | [phone] | [phone] | | | | | | | [...] | 2019 | Visit | | Deny Birggs MD [address] | | | | | | [address] | | | | | | [place] [address] | | | | | | [phone] | | | | | | | | +--------+---------+ + + + documented as of this encounter Visit Diagnoses + + | Diagnosis | + + | End stage renal failure on dialysis (HCC) - Primary End stage renal disease | + + documented in this encounter"
--- OUTSIDE RECORDS SUMMARY | ~2019-02-17 | XMS | Encounter Summary ---
Demographics + + + | Address | [address] | | | [place] [address] | + + + | Home Phone [...] | | | | | [place] [address] | | + + + + + | Thania Mallory | ECON | [address] | | | | | [place] [address] | | + + + + + | Deidra Weldon | ECON | [address] | | | | | [place] | | | | | [address] | | + + + + + Care Team Providers + +------+ + | Care Riveting Machine Operator Name | Role | Phone [...] | VERIFICATION) | | | | [facility] | [facility] | | | | | Rd [place], [place] | [place], [place] | | | | | [address] | [address] | | | | | [phone] | | | +--------+ + + + [...] Denise | | | | | | [place] | | | | | | [address] | | | | | | [phone] | | | | | | | | +--------+ + + + + documented as of this encounter Visit Diagnoses Not on filedocumented in this encounter"
--- OUTSIDE RECORDS SUMMARY | ~2019-02-17 | XMS | Encounter Summary ---
Demographics + + + | Address | [address] | | | [place] [address] | + + + | Home Phone [...] | | | | | [place] [address] | | + + + + + | Thania Mallory | ECON | [address] | | | | | [place] [address] | | + + + + + | Deidra Weldon | ECON | [address] | | | | | [place] | | | | | [address] | | + + + + + Care Team Providers + +------+ + | Care Special Delivery Carrier Name | Role | Phone | [...] Update | | | | [address]NAL[address] [facility] | [facility] [address] [facility] [address] | | | | | [place], [place] | [place], [place] | | | | | [address] | [address] | | | | | [phone] | [phone] | | | | | | | [...] Denise | | | | | | [place] | | | | | | [address] | | | | | | [phone] | | | | | | | | +--------+ + + + + documented as of this encounter Visit Diagnoses Not on filedocumented in this encounter"
--- OUTSIDE RECORDS SUMMARY | ~2019-02-17 | XMS | Encounter Summary ---
Demographics + + + | Address | [address] | | | [place] [address] | + + + | Home Phone [...] | | | | | [place] [address] | | + + + + + | Thania Mallory | ECON | [address] | | | | | [place] [address] | | + + + + + | Deidra Weldon | ECON | [address] | | | | | [place] | | | | | [address] | | + + + + + Care Team Providers + +------+ + | Care Freight Rate Clerk Name | Role | Phone [...] | | | | | [place] | [address] | | | | | [facility] | [place], [place] | | | | | [address] | [address] | | | | | Mailcode: DCH7 | [phone] | | | | | Alexander | | | | | | [place], [place] | | | | | | [address] | | | | | | [phone] | | | +--------+ + + + [...] Denise | | | | | | [place] | | | | | | [address] | | | | | | [phone] | | | | | | | | +--------+ + + + + documented as of this encounter Visit Diagnoses Not on filedocumented in this encounter"
--- OUTSIDE RECORDS SUMMARY | ~2019-02-17 | XMS | Encounter Summary ---
Demographics + + + | Address | [address] | | | [place] [address] | + + + | Home Phone [...] | | | | | [place] [address] | | + + + + + | Thania Mallory | ECON | [address] | | | | | [place] [address] | | + + + + + | Deidra Weldon | ECON | [address] | | | | | [place] | | | | | [address] | | + + + + + Care Team Providers + +------+ + | Care Lockmaker Name | Role | Phone | + [...] erpretation | Cardiology at | [address] [facility] | disease (HCC) | | | | [place] | [address] | (Primary Dx) | | | | [facility] | [place], [place] | | | | | [address] | [address] | | | | | Mailcode: LEYLA | [phone] | | | | | Alexander | | | | | | [place], [place] | | | | | | [address] | | | | | | [phone] | | | +--------+ + + + [...] | | | | | | [place], [place] | | | | | | [address] | | | | | | [phone] | | | | | | | [...] status | | | | | | ([facility]) Chronic | | | | | | kidney disease, | | | | | | stage V ([facility]) | | + +--------+ + + + documented in this encounter Visit Diagnoses + + | Diagnosis | + + | End-stage renal disease (HCC) - Primary End stage renal disease | + + documented in this encounter"
--- OUTSIDE RECORDS SUMMARY | ~2019-02-17 | XMS | Encounter Summary ---
Demographics + + + | Address | [address] | | | [place] [address] | + + + | Home Phone [...] + | Author | [facility] | | | and [place]ana | + + + | Organization | [facility] | | [...] Team Providers + +------+ + | Care Bessemer Regulator Name | Role | Phone | [...] | Encounter | JOY | MD Emanuel [address] | | | | | [address] | [facility] | | | | [address] | [place], [place] | | | | | [place], [place] | [address] | | | | | [address] | [phone] | | | | | [phone] | | | +--------+ + + + [...] [address] | | | | | | [place] [address] | | | | | | [phone] | | | | | | | | +--------+---------+ + + + documented as of this encounter Visit Diagnoses Not on filedocumented in this encounter"
--- OUTSIDE RECORDS SUMMARY | ~2019-02-17 | XMS | Encounter Summary ---
Demographics + + + | Address | [address] | | | [place] [address] | + + + | Home Phone [...] | Author | [facility] | | | and [place]ana | + + + | Organization | [facility] [...] Team Providers + +------+ + | Care Early Childhood Name | Role | Phone | + [...] NEPHROLOGY [address] | M, DO [address] | | | | | [address] | [place] | | | | | [place], [place] | [place], [place] | | | | | [address] | [address] | | | | | [phone] | | | +--------+ + + + [...] Dr. Camp's progress note from 12/30/13 to [facility]phrology (fx: [phone]) on 01/20/14. documented in this encounter Plan [...] [address] | | | | | | [place] [address] | | | | | | [phone] | | | | | | | | +--------+---------+ + + + documented as of this encounter Visit Diagnoses Not on filedocumented in this encounter"
--- OUTSIDE RECORDS SUMMARY | ~2019-02-17 | XMS | Encounter Summary ---
Demographics + + + | Address | [address] | | | [place] [address] | + + + | Home Phone [...] Author | [facility] | | | and [place]ana | + + + | Organization | [facility] | | | and Josephana [...] Team Providers + +------+ + | Care Shipbuilding Draftsperson Name | Role | Phone | + [...] + + | 11/13/ | Telephone | [facility] | Silvia Rabago | DME (OXYGEN) | | 2019 | | [address] | | | | | [place] | | | | | | [address] | | | | | | [phone] | | | +--------+ + + + [...] [place] | | | | | | [facility] [address] | | | | | | [phone] | | | | | | | | +--------+---------+ + + + documented as of this encounter Visit Diagnoses Not on filedocumented in this encounter"
--- OUTSIDE RECORDS SUMMARY | ~2019-02-17 | XMS | Encounter Summary ---
Demographics + + + | Address | [address] | | | [place] [address] | + + + | Home Phone [...] | Author | [facility] | | | and [place]ana | + + + | Organization | [facility] | | [...] Providers + +------+ + | Care Furniture Painter Name | Role | Phone | [...] | | stage renal | [address] | [address] [place] [address] | | | | | disease) | Shun Griffin | [place] | | | | | ([facility]) | [address] | [address] | | | | | Anemia in | [place], [place] | [place] | | | | | ESRD | [address] | [address] Phone: | | | | | (end-stage | Phone: | [phone] | | | | | renal | [phone] | Fax: | | | | | disease) | Fax: | [phone] | | | | | ([facility]) | [phone] | | | | | | Procedures [...] | | [address] | [place] | (Primary Dx) | | | | [place], [place] | [place], [place] | | | | | [address] | [address] | | | | | [phone] | | | +--------+ + + + [...] have offered her arrangements via the Renal COMMUNITY DEVELOPMENT DIRECTOR to obtain some meaningful counseling, but she [...] Will recheck her in 2 weeks. : [place] Fina Joy M.D., Pediatric Nephrology, [facility] [...] [address] | | | | | | [place] [address] | | | | | | [phone] | | | | | | | | +--------+---------+ + + + documented as of this encounter Visit Diagnoses + + | Diagnosis | + + | ESRD (end stage renal disease) (HCC) - Primary End stage renal disease | + + documented in this encounter"
--- OUTSIDE RECORDS SUMMARY | ~2019-02-17 | XMS | Encounter Summary ---
Demographics + + + | Address | [address] | | | [place] [address] | + + + | Home Phone [...] | [facility] | | | and Josephana | + + + | Organization | [facility] | [...] Team Providers + +------+ + | Care Airport Operations Duty Manager Name | Role | Phone | + +------+ + PCP | Unavailable | + +------+ + Encounter Details +--------+ + + + + | Date | Type | Department | Care Team | Description | +--------+ + + + + | 06/12/ | Hospital | [facility] | Conversion | | | 2015 | Encounter | CENTER [facility] | Transaction, | | | | | CLINIC [address] | Provider Unknown | | | | | [place], [place] | [phone] | | | | | [address] | | | | | | [phone] | | | +--------+ + + + [...] | | 2018 | Visit | | Deyn Briggs MD [address] | | | | | | [address] | | | | | | [place] [address] | | | | | | [phone] | | | | | | | [...] | | Patient | performed at [facility];[address] | | LAB | | | | [address];[place], [place] | | | | | | [address] | | | | + + + [...] | | | | performed at [facility];[address] | | | | | | [address];[place], [place] | | | | | | [address] | | | | + + + [...] | | | | | | [place] [address] | | | | + + + + + + | RED CELL | 3.83Comment: Testing | 3.70 - 5.10 | EXTERNAL | | | COUNT | performed at [facility], [address] | M/uL | LAB | | | | [address], | | | | | | [place] [address] | | | | + + + + + + | Hgb | 13.6Comment: Testing | 11.3 - 15.5 | EXTERNAL | | | | performed at [facility], [address] | g/dL | LAB | | | | [address], | | | | | | [place] [address] | | | | + + + + + + | Hematocrit, | 40.5Comment: Testing | 34.0 - 46.0 % | EXTERNAL | | | POC | performed at [facility], [address] | | LAB | | | | [address], | | | | | | [place] [address] | | | | + + + + + + | MCV | 105.8 (H)Comment: | 80.0 - 100.0 fl | EXTERNAL | | | | Testing performed at | | LAB | | | | [facility], [address] | | | | | | [place] | | | | | | [address] | | | | + + + + + + | MCH | 35.6 (H)Comment: Testing | 27.0 - 34.0 pg | EXTERNAL | | | | performed at [facility], [address] | | LAB | | | | [address], | | | | | | [place] [address] | | | | + + + + + + | MCHC | 33.6Comment: Testing | 32.0 - 35.5 | EXTERNAL | | | | performed at [facility], [address] | g/dL | LAB | | | | [address], | | | | | | [place] [address] | | | | + + + + + + | RDW-CV | 50.3Comment: Testing | 37 - 53 fl | EXTERNAL | | | | performed at [facility], [address] | | LAB | | | | [address], | | | | | | [place] [address] | | | | + + + + + + | Platelet | 170Comment: Testing | 150 - 400 K/uL | EXTERNAL | | | Count | performed at [facility], [address] | | LAB | | | Plasma | [address], | | | | | | [place] [address] | | | | + + + + + + | MPV | 9.5Comment: Testing | fl | EXTERNAL | | | | performed at [facility], [address] | | LAB | | | | [address], | | | | | | [place] [address] | | | | + + + + + + | Differentia | AUTOMATEDComment: | | EXTERNAL | | | l Type | Testing performed at | | LAB | | | | TC, [address] [facility] | | | | | | [place] | | | | | | [address] | | | | + + + + + + | % Segmented | 61.53Comment: Testing | % | EXTERNAL | | | | performed at [facility], [address] | | LAB | | | Neutrophils | [address], | | | | | | [place] [address] | | | | + + + + + + | % | 26.38Comment: Testing | % | EXTERNAL | | | Lymphocytes | performed at [facility], [address] | | LAB | | | | [address], | | | | | | [place] [address] | | | | + + + + + + | % Monocytes | 8.30Comment: Testing | % | EXTERNAL | | | | performed at [facility], [address] | | LAB | | | | [address], | | | | | | [place] [address] | | | | + + + + + + | % | 3.19Comment: Testing | % | EXTERNAL | | | Eosinophils | performed at [facility], [address] | | LAB | | | | [address], | | | | | | [place] [address] | | | | + + + + + + | % Basophils | 0.60Comment: Testing | % | EXTERNAL | | | | performed at [facility], [address] | | LAB | | | | [address], | | | | | | [place] [address] | | | | + + + + + + | Absolute | 5.44Comment: Testing | 1.90 - 7.40 | EXTERNAL | | | Segmented | performed at [facility], [address] | K/uL | LAB | | | Neutrophils | [address], | | | | | | [place] [address] | | | | + + + + + + | Absolute | 2.33Comment: Testing | 1.00 - 3.90 | EXTERNAL | | | Lymphocytes | performed at [facility], [address] | K/uL | LAB | | | | [address], | | | | | | [place] [address] | | | | + + + + + + | Absolute | 0.74Comment: Testing | 0.00 - 0.80 | EXTERNAL | | | Monocytes | performed at [facility], [address] | K/uL | LAB | | | | [address], | | | | | | [place] [address] | | | | + + + + + + | Absolute | 0.28Comment: Testing | 0.00 - 0.50 | EXTERNAL | | | Eosinophils | performed at [facility], [address] | K/uL | LAB | | | | [address], | | | | | | [place] [address] | | | | + + + + + + | Absolute | 0.05Comment: Testing | 0.00 - 0.10 | EXTERNAL | | | Basophils | performed at [facility], [address] | K/uL | LAB | | | | [address], | | | | | | [place] [address] | | | | + + + [...] | | | | | [place] [address] | | | | + + + + + + | K | 3.8Comment: Testing | 3.5 - 4.9 | EXTERNAL | | | | performed at [facility], [address] | mmol/L | LAB | | | | [address], | | | | | | [place] [address] | | | | + + + + + + | Cl | 94 (L)Comment: Testing | 99 - 109 mmol/L | EXTERNAL | | | | performed at [facility], [address] | | LAB | | | | [address], | | | | | | [place] [address] | | | | + + + + + + | CO2 | 31Comment: Testing | 23 - 32 mmol/L | EXTERNAL | | | | performed at [facility], [address] | | LAB | | | | [address], | | | | | | [place] [address] | | | | + + + + + + | Anion Gap | 13Comment: Testing | 5 - 20 mmol/L | EXTERNAL | | | | performed at [facility], [address] | | LAB | | | | [address], | | | | | | [place] [address] | | | | + + + + + + | Glucose, | 95Comment: Testing | 65 - 99 mg/dL | EXTERNAL | | | Fasting | performed at [facility], [address] | | LAB | | | | [address], | | | | | | [place] [address] | | | | + + + + + + | BUN | 40 (H)Comment: Testing | 8 - 25 mg/dL | EXTERNAL | | | | performed at [facility], [address] | | LAB | | | | [address], | | | | | | [place] [address] | | | | + + + + + + | Creatinine | 7.24 (H)Comment: Testing | 0.50 - 1.00 | EXTERNAL | | | | performed at [facility], [address] | mg/dL | LAB | | | | [address], | | | | | | [place] [address] | | | | + + + + + + | BUN/Creatin | 6Comment: Testing | | EXTERNAL | | | ine Ratio | performed at [facility], [address] | | LAB | | | | [address], | | | | | | [place] [address] | | | | + + + + + + | Calcium | 10.2Comment: Testing | 8.5 - 10.5 | EXTERNAL | | | | performed at [facility], [address] | mg/dL | LAB | | | | [facility], | | | | | | [place] [address] | | | | + + + + + + | Estimated | CALCULATION NOT | mL/min/1.73m2 | EXTERNAL | | | GFR | PERFORMED. RESULT NOT | | LAB | | | | VALID IF AGE LT 20 | | | | | | YEARS.Comment: Testing | | | | | | performed at [facility], [address] | | | | | | [facility], | | | | | | [place] [address] | | | | + + + [...] EXTERNAL LAB | | Testing performed at [address];[place] [address] MRSA PCR | | | NEGATIVE Testing performed at | | | [address];[place] [address] | | + + + + +---------+ + + | Performing | Address | City/State/Zipcode | Phone Number | | Organization | | | | + +---------+ + + | EXTERNAL LAB | | | | + +---------+ + + documented in this encounter Visit Diagnoses Not on filedocumented in this encounter"
--- OUTSIDE RECORDS SUMMARY | ~2019-02-17 | XMS | Encounter Summary ---
Demographics + + + | Address | [address] | | | [place] [address] | + + + | Home Phone [...] | Author | [facility] | | | and Josephana | + + + | Organization | [facility] | [...] Providers + +------+ + | Care Boat Builder Name | Role | Phone | [...] to | | | obtain one in Agency. I explained that we would have to [...] | | KIDNEY TRANSPLANT | [place] [address], | (Dara whelan so I | | | | [address] [place] | [place] [address] | called her back to | | | | [address] [place], [place] | [phone] | complete intake | | | | [address] | | questionnaire. She | | | | [phone] | | currently ingests | | | [...] | | | | | one in Agency. I | | | | | | [...] she would have to obtain one in Agency. I explained that we would have to [...] [place] | | | | | | [place] [id number] | | | | | | [phone] | | | | | | | | +--------+---------+ + + + documented as of this encounter Visit Diagnoses Not on filedocumented in this encounter"
--- OUTSIDE RECORDS SUMMARY | ~2019-02-17 | XMS | Encounter Summary ---
Demographics + + + | Address | [address] | | | [place] [address] | + + + | Home Phone [...] Author | [facility] | | | and Josephana | + + + | Organization | [facility] | | | and [...] Team Providers + +------+ + | Care Database Engineer Name | Role | Phone | + +------+ + PCP | Unavailable | + +------+ + Encounter Details +--------+---------+ + + + | Date | Type | Department | Care Team | Description | +--------+---------+ + + + | 07/10/ | E-Visit | [facility] [place] | Jorje Camp | | | 2017 | | NEPHROLOGY [address] | M, DO [address] | | | | | [address] | [place] [place] [address] | | | | | [place], [place] | [place], [place] | | | | | [address] | [address] | | | | | [phone] | | | +--------+---------+ + + + [...] | | | | | | [place] [address] | | | | | | [phone] | | | | | | | | +--------+---------+ + + + documented as of this encounter Visit Diagnoses + + | Diagnosis | + + | ESRD (end stage renal disease) (HCC) - Primary End stage renal disease | + + documented in this encounter"
--- OUTSIDE RECORDS SUMMARY | ~2019-02-17 | XMS | Encounter Summary ---
Demographics + + + | Address | [address] | | | [place] [address] | + + + | Home Phone [...] | | | | | [place] [address] | | + + + + + | Thania Mallory | ECON | [address] | | | | | [place] [address] | | + + + + + | Deidra Weldon | ECON | [address] | | | | | [place] | | | | | [address] | | + + + + + Care Team Providers + +------+ + | Care Ore Dressing Engineer Name | Role | Phone | [...] [address] | | | | | ANNALISA [facility] | [facility] | | | | | Rd [place], [place] | [place], [place] | | | | | [address] | [address] | | | | | [phone] | | | +--------+ + + + [...] | | | | | | [place] | | | | | | [address] | | | | | | [phone] | | | | | | | | +--------+ + + + + documented as of this encounter Visit Diagnoses Not on filedocumented in this encounter"
--- OUTSIDE RECORDS SUMMARY | ~2019-02-17 | XMS | Encounter Summary ---
Demographics + + + | Address | [address] | | | [place] [address] | + + + | Home Phone [...] | | | | | [place] [address] | | + + + + + | Thania Mallory | ECON | [address] | | | | | [place] [address] | | + + + + + | Deidra Weldon | ECON | [address] | | | | | [place] | | | | | [address] | | + + + + + Care Team Providers + +------+ + | Care Returned Goods Receiving Clerk Name | Role | Phone | [...] | Update | | | | ANNALISA [facility] | [facility] | | | | | Rd [place], [place] | [place], [place] | | | | | [address] | [address] | | | | | [phone] | | | +--------+ + + + [...] Denise | | | | | | [place] | | | | | | [address] | | | | | | [phone] | | | | | | | | +--------+ + + + + documented as of this encounter Visit Diagnoses Not on filedocumented in this encounter"
--- OUTSIDE RECORDS SUMMARY | ~2019-02-17 | XMS | Encounter Summary ---
Demographics + + + | Address | [address] | | | [place] [address] | + + + | Home Phone [...] | Author | [facility] | | | and [place]ana | + + + | Organization | [facility] | | [...] Providers + +------+ + | Care Assistant Strength Coach Name | Role | Phone | [...] | Procedures | [place], [place] | [place] [address] | | | | | [place] | [address] | Phone: | | | | | ANASTOMOSIS, | Phone: | [phone] | | | | | AV,[address] SITE | [phone] | Fax: | | | | | | Fax: | [phone] | | | | | | [phone] | | +--------+ + + + + [...] | | | | | disease) | [place], [place] | [address] | | | | | ([facility]) | [address] [place] | [place], | | | | | | [place], [place] | [place] [address] | | | | | | [address] | Phone: | | | | | | Phone: | [phone] | | | | | | [phone] | Fax: | | | | | | Fax: | [phone] | | | | | | [phone] | | +--------+ + + + + + Encounter Details +--------+---------+ + + + | Date | Type | Department | Care Team | Description | +--------+---------+ + + + | 12/18/ | Office | [facility] | Blake | End stage renal | | 2013 | Visit | SURGERY [address] | MD Antonieta, FACS [address] | disease (HCC) | | | | [place], [place] | [address] [facility] | (Primary Dx) | | | | [address] | [place] [address] | | | | | [phone] | [phone] | | | | | | | [...] Care ? Shahid Camargo Who is your Water Manager/Kidney Specialist ? Dr. Camp When was the current dialysis access placed? July [address] [facility] in [place] What problems are there with the current dialysis access? 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 Patient used to have PD catheter for dialysis 2012--[facility] in [place] . Came out Jul, 2013 . Then got RIGHT IJ catheter. Also got catheter at [facility]. Live in [place]. Go es to [facility] in [place] for dialysis. Now needs AVF. Is RIGHt hand dominant. No pains in hands. 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 Currently on [facility] for kidney transplant. Wants AVF in [...] ed for acceptable candidacy. Will f/u with [facility] Transplant Team. Shahid Cruz Raman's notes were not available to be reviewed in clinic today. PAST MEDICAL HISTORY Past Medical History She has a past medical history of HSP (Henoch-Schonlein purpura) nephritis (HCC) (1987) and ESRD (end stage renal disease) ([facility]). Past Surgical History She Past [...] REPORT: PATIENT NAME : Dara Weldon EQUIPMENT: SoneBoox M-Turbo with 10-5 mHertz probe. INDICATIONS: Dialysis [...] [place] | | | | | | [place] [address] | | | | | | [phone] | | | | | | | [...]
--- OUTSIDE RECORDS SUMMARY | ~2019-02-17 | XMS | Encounter Summary ---
Demographics + + + | Address | [address] | | | [place] [address] | + + + | Home Phone [...] | | | | | [place] [address] | | + + + + + | Thania Mallory | ECON | [address] | | | | | [place] [address] | | + + + + + | Deidra Weldon | ECON | [address] | | | | | [place] | | | | | [address] | | + + + + + Care Team Providers + +------+ + | Care Commercial Designer Name | Role | Phone | + +------+ + | Shahid Camargo MD | PCP | | + +------+ + Reason for Visit +--------+ + | Reason | Comments | +--------+ + | Other | Requested [id number] | +--------+ + Encounter Details +--------+ + + + + | Date | Type | Department | Care Team | Description | +--------+ + + + + | 11/15/ | Telephone | Transplant | Jesus Edmond, | Other (Requested | | 2012 | | Coordinators [address] | [address] | [id number]) | | | | ANNALISA Hoffmann [facility] | [facility] | | | | | [place], [place] | [place], [place] | | | | | [address] | [address] | | | | | [phone] | [phone] | | | | | | | [...] Denise | | | | | | [place], [place] | | | | | | [address] | | | | | | [phone] | | | | | | | | +--------+ + + + + documented as of this encounter Visit Diagnoses Not on filedocumented in this encounter"
--- OUTSIDE RECORDS SUMMARY | ~2019-02-17 | XMS | Encounter Summary ---
Demographics + + + | Address | [address] | | | [place] [address] | + + + | Home Phone [...] + | Author | [facility] | | | and [place]ana | + + + | Organization | [facility] | | [...] Providers + +------+ + | Care Master Automotive Glass Technician Name | Role | Phone | [...] | | stage renal | [address] | [address] [place] [address] | | | | | disease) | Shun Griffin | [place] | | | | | ([facility]) | [address] | [address] [place] | | | | | Anemia in | [place], [place] | [place] | | | | | ESRD | [address] | [address] Phone: | | | | | (end-stage | Phone: | [phone] | | | | | renal | [phone] | Fax: | | | | | disease) | Fax: | [phone] | | | | | ([facility]) | [phone] | | | | | | Procedures | | | | | | | [place] OFFICE | | | | | | [...] | | [address] | [place], [place] [address] | disease) ([facility]) | | | | [place], [place] | [place] [facility] | (Primary Dx); ESRD | | | | [address] | [address] | (end stage renal | | | | [phone] | | disease) ([facility]) | +--------+ + + + + [...] Hypertension--from review of her treatment data in [facility] [place] EHR, BP appears stable at her current [...] Will recheck her iron profile next m [facility]. Plan: 1. Again, I counseled Dara length [...] Will recheck her in 2 weeks. CC: [place] Fina Joy MD, [facility] Transplant [facility], [facility] signed by Jorje Camp DO at [...] [place] | | | | | | [place] [address] | | | | | | [phone] | | | | | | | [...]
--- OUTSIDE RECORDS SUMMARY | ~2019-02-17 | XMS | Encounter Summary ---
Demographics + + + | Address | [address] | | | [place] [address] | + + + | Home Phone [...] | | | | | [place] [address] | | + + + + + | Thania Mallory | ECON | [address] | | | | | [place] [address] | | + + + + + | Deidra Weldon | ECON | [address] | | | | | [place] | | | | | [address] | | + + + + + Care Team Providers + +------+ + | Care Individualized Education Plan Aide Name | Role | Phone | [...] (psychosocial update | | | | [address] [place], [place] | [place], [place] | from pt's mom) | | | | [address] | [address] | | | | | [phone] | | | +--------+ + + + [...] Denise | | | | | | [place] | | | | | | [address] | | | | | | [phone] | | | | | | | | +--------+ + + + + documented as of this encounter Visit Diagnoses Not on filedocumented in this encounter"
--- OUTSIDE RECORDS SUMMARY | ~2019-02-17 | XMS | Encounter Summary ---
Demographics + + + | Address | [address] | | | [place] [address] | + + + | Home Phone [...] | | | | | [place] [address] | | + + + + + | Thania Mallory | ECON | [address] | | | | | [place] [address] | | + + + + + | Deidra Weldon | ECON | [address] | | | | | [place] | | | | | [address] | | + + + + + Care Team Providers + +------+ + | Care Treater Helper Name | Role | Phone | [...] Update | | | | ANNALISA Hoffmann [facility] | [facility] | | | | | [place], [place] | [place], [place] | | | | | [address] | [address] | | | | | [phone] | [phone] | | | | | | | [...] Denise | | | | | | [place], [place] | | | | | | [address] | | | | | | [phone] | | | | | | | | +--------+ + + + + documented as of this encounter Visit Diagnoses Not on filedocumented in this encounter"
--- OUTSIDE RECORDS SUMMARY | ~2019-02-17 | XMS | Encounter Summary ---
Demographics + + + | Address | [address] | | | [place] [address] | + + + | Home Phone [...] | Author | [facility] | | | and [place]ana | + + + | Organization | [facility] | | [...] Providers + +------+ + | Care Forensic Science Technician Name | Role | Phone | [...] + + | 01/22/ | Refill | [facility] | Daniela Alejandre | Medication Refill | | 2018 | | CARDIOLOGY GERALD [place] Station Attendant | | | | | [address] | | | | | | [place] | | | | | | [address] | | | | | | [phone] | | | +--------+--------+ + + + [...] [place] | | | | | | [place] [address] | | | | | | [phone] | | | | | | | | +--------+---------+ + + + documented as of this encounter Visit Diagnoses Not on filedocumented in this encounter"
--- OUTSIDE RECORDS SUMMARY | ~2019-02-17 | XMS | Encounter Summary ---
Demographics + + + | Address | [address] | | | [place] [address] | + + + | Home Phone [...] Author | [facility] | | | and [place]ana | + + + | Organization | [facility] [...] Providers + +------+ + | Care Director Communications Name | Role | Phone | + +------+ + PCP | Unavailable | + +------+ + Encounter Details +--------+ + + + + | Date | Type | Department | Care Team | Description | +--------+ + + + + | 07/10/ | Hospital | [facility] OP | Sudhakar Joy | | | 2009 | Encounter | JOY | MD Emanuel [address] | | | | | [address]PART[address] | [facility] | | | | | [address] | [place], [place] | | | | | [place], [place] | [address] | | | | | [address] | [phone] | | | | | [phone] | | | +--------+ + + + [...] [place] | | | | | | [place] [address] | | | | | | [phone] | | | | | | | | +--------+---------+ + + + documented as of this encounter Visit Diagnoses Not on filedocumented in this encounter"
--- OUTSIDE RECORDS SUMMARY | ~2019-02-17 | XMS | Encounter Summary ---
Demographics + + + | Address | [address] | | | [place] [address] | + + + | Home Phone [...] | Author | [facility] | | | and [place] | + + + | Organization | [facility] | [...] Team Providers + +------+ + | Care Weaver Hand Loom Name | Role | Phone | + [...] [address] | | | | | [facility] [address] [place] | | | | | [address] [place], [place] | [place] [address] | | | | | [address] | [phone] | | | | | [phone] | | | +--------+ + + + [...] [place] | | | | | | [place] [address] | | | | | | [phone] | | | | | | | | +--------+---------+ + + + documented as of this encounter Visit Diagnoses Not on filedocumented in this encounter"
--- OUTSIDE RECORDS SUMMARY | ~2019-02-17 | XMS | Encounter Summary ---
Demographics + + + | Address | [address] | | | [place] [address] | + + + | Home Phone [...] + | Author | [facility] | | | and [place] | + + + | Organization | [facility] | | | and [...] Providers + +------+ + | Care Mathematics Instructor Name | Role | Phone | [...] | | KIDNEY TRANSPLANT | [address] [place], | | | | | [address] [place] | [place] [address] | | | | | [address] [place] | [phone] | | | | | [address] | | | | | | [phone] | | | +--------+ + + + [...] I also called the Fina Sparrow social human services assistants, and let her know t hat Dara [...] [place] | | | | | | [facility] [address] | | | | | | [phone] | | | | | | | | +--------+---------+ + + + documented as of this encounter Visit Diagnoses Not on filedocumented in this encounter"
--- OUTSIDE RECORDS SUMMARY | ~2019-02-17 | XMS | Encounter Summary ---
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 Diagnostician: Anahy Da Silva MD Pathologist | [...] | | EXTERNAL | | | | [facility] | | LAB | | | | [address];[place] [address] | | | | + + + + + + | Antibody | NEGATIVE | | EXTERNAL | | | Screen | | | LAB | | + + + + + + | Antibody | Testing performed at | | EXTERNAL | | | Screen | [facility] | | LAB | | | | [address];[place] [address] | | | | + + + + + + | BB BAND | [id number] | | EXTERNAL | | | | | | LAB | | + + + + + + | BB BAND | Testing performed at | | EXTERNAL | | | | [facility] | | LAB | | | | [address];[place] [address] | | | | + + + [...] | | | Patient | performed at [facility] | | LAB | | | | [address];[place] | | | | | | [address] | | | | + + + [...] [place] | | | | | | [address] | | | | + + + + + + | RED CELL | 3.70Comment: Testing | 3.70 - 5.10 | EXTERNAL | | | COUNT | performed at [facility];[address] | M/uL | LAB | | | | [address];[place] | | | | | | [address] | | | | + + + + + + | Hgb | 12.9Comment: Testing | 11.3 - 15.5 | EXTERNAL | | | | performed at [facility];888 | g/dL | LAB | | | | [address];[place] | | | | | | [address] | | | | + + + + + + | Hematocrit, | 38.9Comment: Testing | 34.0 - 46.0 % | EXTERNAL | | | POC | performed at [facility];[address] | | LAB | | | | [address];[place] | | | | | | [address] | | | | + + + + + + | MCV | 105.2 (H)Comment: | 80.0 - 100.0 fl | EXTERNAL | | | | Testing performed at | | LAB | | | | [facility];[address] | | | | | [address];[place] [address] | | | | + + + + + + | MCH | 35.0 (H)Comment: Testing | 27.0 - 34.0 pg | EXTERNAL | | | | performed at [facility];[address] | | LAB | | | | [address];[place] | | | | | | [address] | | | | + + + + + + | MCHC | 33.3Comment: Testing | 32.0 - 35.5 | EXTERNAL | | | | performed at [facility];888 | g/dL | LAB | | | | [address];[place] | | | | | | [address] | | | | + + + + + + | RDW-CV | 51.6Comment: Testing | 37 - 53 fl | EXTERNAL | | | | performed at [facility];[address] | | LAB | | | | [address];[place] | | | | | | [address] | | | | + + + + + + | Platelet | 175Comment: Testing | 150 - 400 K/uL | EXTERNAL | | | Count | performed at [facility];888 | | LAB | | | Plasma | [address];[place] | | | | | | [address] | | | | + + + + + + | MPV | 8.9Comment: Testing | fl | EXTERNAL | | | | performed at [facility];[address] | | LAB | | | | [address];[place] | | | | | | [address] | | | | + + + + + + | Differentia | AUTOMATEDComment: | | EXTERNAL | | | l Type | Testing performed at | | LAB | | | | [facility];[address] | | | | [address];[place] [address] | | | | + + + + + + | % Segmented | 71.7Comment: Testing | % | EXTERNAL | | | | performed at [facility];[address] | | LAB | | | Neutrophils | [address];[place] | | | | | | [address] | | | | + + + + + + | % | 19.5Comment: Testing | % | EXTERNAL | | | Lymphocytes | performed at [facility];[address] | | LAB | | | | [address];[place] | | | | | | [address] | | | | + + + + + + | % Monocytes | 6.7Comment: Testing | % | EXTERNAL | | | | performed at [facility];[address] | | LAB | | | | [address];[place] | | | | | | [address] | | | | + + + + + + | % | 1.6Comment: Testing | % | EXTERNAL | | | Eosinophils | performed at [facility];[address] | | LAB | | | | [address];[place] | | | | | | [address] | | | | + + + + + + | % Basophils | 0.5Comment: Testing | % | EXTERNAL | | | | performed at [facility];[address] | | LAB | | | | [address];[place] | | | | | | [address] | | | | + + + + + + | Absolute | 5.6Comment: Testing | 1.9 - 7.4 K/uL | EXTERNAL | | | Segmented | performed at [facility];[address] | | LAB | | | Neutrophils | [address];[place] | | | | | | [address] | | | | + + + + + + | Absolute | 1.5Comment: Testing | 1.0 - 3.9 K/uL | EXTERNAL | | | Lymphocytes | performed at [facility];[address] | | LAB | | | | [address];[place] | | | | | | [address] | | | | + + + + + + | Absolute | 0.5Comment: Testing | 0 - 0.8 K/uL | EXTERNAL | | | Monocytes | performed at [facility];[address] | | LAB | | | | [address];[place] | | | | | | [address] | | | | + + + + + + | Absolute | 0.1Comment: Testing | 0 - 0.5 K/uL | EXTERNAL | | | Eosinophils | performed at [facility];[address] | | LAB | | | | [address];[place] | | | | | | [address] | | | | + + + + + + | Absolute | 0.0Comment: Testing | 0 - 0.1 K/uL | EXTERNAL | | | Basophils | performed at [facility];[address] | | LAB | | | | [address];[place], [place] | | | | | | [address] | | | | + + + [...] [place] | | | | | | [address] | | | | + + + + + + | K | 3.9Comment: Testing | 3.5 - 4.9 | EXTERNAL | | | | performed at [facility];888 | mmol/L | LAB | | | | [address];[place] | | | | | | [address] | | | | + + + + + + | Cl | 103Comment: Testing | 99 - 109 mmol/L | EXTERNAL | | | | performed at [facility];[address] | | LAB | | | | [address];[place] | | | | | | [address] | | | | + + + + + + | CO2 | 26Comment: Testing | 23 - 32 mmol/L | EXTERNAL | | | | performed at [facility];[address] | | LAB | | | | [address];[place] | | | | | | [address] | | | | + + + + + + | Anion Gap | 12Comment: Testing | 5 - 20 mmol/L | EXTERNAL | | | | performed at [facility];[address] | | LAB | | | | [address];[place] | | | | | | [address] | | | | + + + + + + | Glucose, | 78Comment: Testing | 65 - 99 mg/dL | EXTERNAL | | | Fasting | performed at [facility];[address] | | LAB | | | | [address];[place] | | | | | | [address] | | | | + + + + + + | BUN | 12Comment: Testing | 8 - 25 mg/dL | EXTERNAL | | | | performed at [facility];[address] | | LAB | | | | [address];[place] | | | | | | [address] | | | | + + + + + + | Creatinine | 3.51 (H)Comment: Testing | 0.50 - 1.00 | EXTERNAL | | | | performed at [facility];888 | mg/dL | LAB | | | | [address];[place] | | | | | | [address] | | | | + + + + + + | BUN/Creatin | 4Comment: Testing | | EXTERNAL | | | ine Ratio | performed at [facility];[address] | | LAB | | | | [address];[place] | | | | | | [address] | | | | + + + + + + | Calcium | 9.6Comment: Testing | 8.5 - 10.2 | EXTERNAL | | | | performed at [facility];888 | mg/dL | LAB | | | | [address];[place] | | | | | | [address] | | | | + + + + + + | Protein, | 8.1Comment: Testing | 6.3 - 8.2 g/dL | EXTERNAL | | | Total | performed at [facility];[address] | | LAB | | | | [address];[place] | | | | | | [address] | | | | + + + + + + | Albumin | 3.7Comment: Testing | 3.6 - 5.0 g/dL | EXTERNAL | | | | performed at [facility];[address] | | LAB | | | | [address];[place] | | | | | | [address] | | | | + + + + + + | Globulin | 4.3Comment: Testing | 1.3 - 4.9 g/dL | EXTERNAL | | | | performed at [facility];[address] | | LAB | | | | [address];[place] | | | | | | [address] | | | | + + + + + + | A/G Ratio | 0.9 (L)Comment: Testing | 1.0 - 2.4 | EXTERNAL | | | | performed at [facility];[address] | | LAB | | | | [address];[place] | | | | | | [address] | | | | + + + + + + | Bilirubin | 0.4Comment: Testing | 0.1 - 1.5 mg/dL | EXTERNAL | | | Total | performed at [facility];[address] | | LAB | | | | [address];[place] | | | | | | [address] | | | | + + + + + + | ALP, | 121 (H)Comment: Testing | 35 - 115 U/L | EXTERNAL | | | External | performed at [facility];[address] | | LAB | | | | [address];[place] | | | | | | [address] | | | | + + + + + + | AST | 20Comment: Testing | 10 - 45 U/L | EXTERNAL | | | | performed at [facility];[address] | | LAB | | | | [address];[place] | | | | | | [address] | | | | + + + + + + | ALT | 38Comment: Testing | 10 - 65 U/L | EXTERNAL | | | | performed at [facility];[address] | | LAB | | | | [address];[place] | | | | | | [address] | | | | + + + [...] [place] | | | | | | [address] | | | | + + + [...]
--- OUTSIDE RECORDS SUMMARY | ~2019-02-17 | XMS | Encounter Summary ---
Demographics + + + | Address | [address] | | | [place] [address] | + + + | Home Phone [...] | | | | | [place] [address] | | + + + + + | Thania Mallory | ECON | [address] | | | | | [place] [address] | | + + + + + | Deidra Weldon | ECON | [address] | | | | | [place] | | | | | [address] | | + + + + + Care Team Providers + +------+ + | Care Pomology Teacher Name | Role | Phone | [...] Update | | | | ANNALISA Hoffmann [facility] | [facility] | | | | | Rd [place], [place] | [place], [place] | | | | | [address] | [address] | | | | | [phone] | | | +--------+ + + + [...] Denise | | | | | | [place], [place] | | | | | | [address] | | | | | | [phone] | | | | | | | | +--------+ + + + + documented as of this encounter Visit Diagnoses Not on filedocumented in this encounter"
--- OUTSIDE RECORDS SUMMARY | ~2019-02-17 | XMS | Encounter Summary ---
Demographics + + + | Address | [address] | | | [place] [address] | + + + | Home Phone [...] | | | | | [place] [address] | | + + + + + | Thania Mallory | ECON | [address] | | | | | [place] [address] | | + + + + + | Deidra Weldon | ECON | [address] | | | | | [place] | | | | | [address] | | + + + + + Care Team Providers + +------+ + | Care Contact Center Assistant Name | Role | Phone | [...] | | | | | ANNALISA Hoffmann [facility] | [facility] | | | | | Rd [place], [place] | [place], [place] | | | | | [address] | [address] | | | | | [phone] | | | +--------+ + + + [...] Denise | | | | | | [place] | | | | | | [address] | | | | | | [phone] | | | | | | | | +--------+ + + + + documented as of this encounter Visit Diagnoses Not on filedocumented in this encounter"
--- OUTSIDE RECORDS SUMMARY | ~2019-02-17 | XMS | Encounter Summary ---
Demographics + + + | Address | [address] | | | [place] [address] | + + + | Home Phone [...] | Author | [facility] | | | and Josephana | + + + | Organization | [facility] [...] Team Providers + +------+ + | Care Collator Name | Role | Phone | + [...] | stage renal | [address] | [address] [place] [address] | | | | | disease) | Shun Griffin | [place] | | | | | ([facility]) | [address] | [address] [place] | | | | | Anemia in | [place], [place] | [place] | | | | | ESRD | [address] | [address] Phone: | | | | | (end-stage | Phone: | [phone] | | | | | renal | [phone] | Fax: | | | | | disease) | Fax: | [phone] | | | | | ([facility]) | [phone] | | | | | | Procedures [...] [address] | renal disease) ([facility]) | | | | [address] | [place] | (Primary Dx) | | | | [place], [place] | [place], [place] | | | | | [address] | [address] | | | | | [phone] | | | +--------+ + + + [...] [place] | | | | | | [place] [address] | | | | | | [phone] | | | | | | | | +--------+---------+ + + + documented as of this encounter Visit Diagnoses + + | Diagnosis | + + | ESRD (end stage renal disease) (HCC) - Primary End stage renal disease | + + documented in this encounter"
--- OUTSIDE RECORDS SUMMARY | ~2019-02-17 | XMS | Encounter Summary ---
Demographics + + + | Address | [address] | | | [place] [address] | + + + | Home Phone [...] | | | | | [place] [address] | | + + + + + | Thania Mallory | ECON | [address] | | | | | [place] [address] | | + + + + + | Deidra Weldon | ECON | [address] | | | | | [place] | | | | | [address] | | + + + + + Care Team Providers + +------+ + | Care Assembly Hand Name | Role | Phone | [...] (Delisting) | | | | ANNALISA Hoffmann [facility] | [facility] | | | | | Rd [place], [place] | [place], [place] | | | | | [address] | [address] | | | | | [phone] | | | +--------+ + + + [...] | | | | | | [place] | | | | | | [address] | | | | | | [phone] | | | | | | | | +--------+ + + + + documented as of this encounter Visit Diagnoses Not on filedocumented in this encounter"
--- OUTSIDE RECORDS SUMMARY | ~2019-02-17 | XMS | Encounter Summary ---
Demographics + + + | Address | [address] | | | [place] [address] | + + + | Home Phone [...] | | | | | [place] [address] | | + + + + + | Thania Mallory | ECON | [address] | | | | | [place] [address] | | + + + + + | Deidra Weldon | ECON | [address] | | | | | [place] | | | | | [address] | | + + + + + Care Team Providers + +------+ + | Care Professional Development Director Name | Role | Phone | [...] | 2013 | | [address] | [place], [place] | Update | | | | [address] [facility] | [address] | | | | | Rd [place], [place] | | | | | | [address] | | | | | | [phone] | | | +--------+ + + + [...] Denise | | | | | | [place], [place] | | | | | | [address] | | | | | | [phone] | | | | | | | | +--------+ + + + + documented as of this encounter Visit Diagnoses Not on filedocumented in this encounter"
--- OUTSIDE RECORDS SUMMARY | ~2019-02-17 | XMS | Encounter Summary ---
Demographics + + + | Address | [address] | | | [place] [address] | + + + | Home Phone [...] | | | | | [place] [address] | | + + + + + | Thania Mallory | ECON | [address] | | | | | [place] [address] | | + + + + + | Deidra Weldon | ECON | [address] | | | | | [place] | | | | | [address] | | + + + + + Care Team Providers + +------+ + | Care Car Servicer Name | Role | Phone | [...] Shun | | | | | [address] | [facility] | | | | | [place], [place] | [place] [address] | | | | | [address] | [phone] | | | | | | | [...] Denise | | | | | | [place], [place] | | | | | | [address] | | | | | | [phone] | | | | | | | | +--------+ + + + + documented as of this encounter Visit Diagnoses Not on filedocumented in this encounter"
--- OUTSIDE RECORDS SUMMARY | ~2019-02-17 | XMS | Encounter Summary ---
Demographics + + + | Address | [address] | | | [place] [address] | + + + | Home Phone [...] + | Author | [facility] | | | and Josephana | + + + | Organization | [facility] | | | and Josephana [...] Providers + +------+ + | Care Land Law Examiner Name | Role | Phone | [...] [address] | | | | | ([facility]) | [address] [place] | [place], | | | | | | [place], [place] | [place] [address] | | | | | | [address] | Phone: | | | | | | Phone: | [phone] | | | | | | [phone] | Fax: | | | | | | Fax: | [phone] | | | | | | [phone] | | +--------+ + + + + + Encounter Details +--------+ + + + + | Date | Type | Department | Care Team | Description | +--------+ + + + + | 02/03/ | Orders Only | [facility] | Jorje Camp | ESRD (end stage | | 2013 | | NEPHROLOGY [address] | M, DO | renal disease) ([facility]) | | | | [address] | [place] | (Primary Dx) | | | | [place], [place] | [place], [place] | | | | | [address] | [address] | | | | | [phone] | | | +--------+ + + + [...] [place] | | | | | | [place] [address] | | | | | | [phone] | | | | | | | [...] | Referral | e | renal disease) ([facility]) | | | Referral | | | | | + + +--------+ + + documented as of this encounter Visit Diagnoses + + | Diagnosis | + + | ESRD (end stage renal disease) ([facility]) - Primary End stage renal disease | + + documented in this encounter"
--- OUTSIDE RECORDS SUMMARY | ~2019-02-17 | XMS | Encounter Summary ---
Demographics + + + | Address | [address] | | | [place] [address] [...] | Author | [facility] | | | and Josephana | + + + | Organization | [facility] | [...] Team Providers + +------+ + | Care Literacy Coach Name | Role | Phone | [...] [place] | | | | | | [address] | | | | | | [phone] | | | +--------+ + + + [...] [place] | | | | | | [place] [address] | | | | | | [phone] | | | | | | | | +--------+---------+ + + + documented as of this encounter Visit Diagnoses Not on filedocumented in this encounter"
--- OUTSIDE RECORDS SUMMARY | ~2019-02-17 | XMS | Encounter Summary ---
Demographics + + + | Address | [address] | | | [place] [address] | + + + | Home Phone [...] | Formerly [facility] | | | and [place] | + + + | Organization | Formerly [facility] | | | and [place] [...] Providers + +------+ + | Care Research Development Director Name | Role | Phone | + +------+ + | Tien Nicholson MD | PCP | | + +------+ + Encounter Details +--------+ + + + + | Date | Type | Department | Care Team | Description | +--------+ + + + + | 07/18/ | Hospital | [facility] | Mary Mckay, | Febrile illness; | | 2019 - | Encounter | [facility] | [address] | Recurrent pleural | | | | CARE FLOOR [address] | [place] [address] | effusion on right; | | 07/24/ | | [address] | [phone] | Hypoxia; History of | | 2019 | | [place], [place] | | end stage renal | | | | [address] | | disease; ESRD on | | | | [phone] | | hemodialysis ([facility]); | | | | | | Anemia in ESRD | | | | | | (end-stage renal | | | | | | disease) ([facility]); | | | | | | Moderate to severe | | | | | | pulmonary | | | | | | hypertension ([facility]); | | | | | | Chronic right-sided | | | | | | heart failure ([facility]); | | | | | | [...] 1306 Date of Service: 07/24/18905 Status: Signed M1A1 Tank Crewman: Usha Martínez MD (Physician) [facility] Service: Hospitalist Discharge Summary Date of [...] renal disease on hemodialysis Monday and Monday (device test engineer Dr. 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, hypertension, asthma, chronic combined heart failure, severe pulmonary hypertension, cor pulmonale, moderate mitral valve regurgitation, severe tricuspid regurgit ation and other chronic comorbidities who was discharged on 05/2018 from [facility] with bilateral pleural effusions and ascites status post thoracentesis 1.5 L removed transudative and 4 L ascitic fluid removed who presents to [facility] ER from [place] [facility] for sepsis likely seco ndary to [...] after discharge and to follow -up with device test engineer and power press tender within 1 to 2 weeks after discharge [...] AV FISTULA; Surgeon: Rik Simon MD; Location: [facility] MAIN OR; Service: Vascula r; Laterality: Left; cephalic AV FISTULA REPAIR Left 03/07/2014 Procedure: AV FISTULA - GRAFT REPAIR/REVISION; Surgeon: Rik Simon MD; Location: [facility] IN OR; Service: Vascular; Laterality: Left; DECLOT GRAFT Left 03/07/2014 Procedure: GRAFT - DECLOT; Surgeon: Rik Simon MD; Location: [facility] MAIN OR; Service: Vas cular; Laterality: Left; DIALYSIS FISTULA CREATION N/A 04/08/2014 Procedure: DIALYSIS CATHETER - INSERTION; Surgeon: Rik Simon MD; Location: [facility] OR ; Service: Vascular; Laterality: N/A; tunneled catheter LAPAROSCOPIC PERITONEAL DIALYSIS CATHETER INSERTION x2 LAPAROSCOPIC PERITONEAL DIALYSIS CATHETER INSERTION Right 07/2013 current dialysis access MWF dialysis RENAL BIOPSY RENAL BIOPSY Left 2003 SUPERFICIALIZATION OF AV FISTULA Left 06/24/2014 Procedure: AV FISTULA - SUPERFICIALIZATION; Surgeon: Rik Simon MD; Location: [facility] OR; Service: Vascular; Laterality: Left; Allergies [...] PH Unknown 7.48 Fluid culture w/gram stain [[id number]] Collected: 07/21/18 1400 Order Status: Completed Lab Status: Preliminary result Updated: 07/24/18 0948 Specimen: Body Fluid from Thoracic Fluid Specimen Description THORACIC FLUID GRAM STAIN NO CELLS OR ORGANISMS SEEN CULTURE NO GROWTH 3 DAYS Fluid total protein (Body fluid) [[id number]] Collected: 07/21/18 1400 Order Status: Completed Lab Status: Final result Updated: 07/21/18 165 Specimen: Body Fluid from Thoracentesis Fluid FLUID TOTAL PROTEIN 4.2 g/dL Comment: This is not a astronomy professor validated sample type for this method. No reference ra nges have been established. Testing performed at [facility], [address] [place] [address] FLUID TP SOURCE THORACENTESIS Comment: Testing performed at [facility];[address] [place] [address] Lactate dehydrogenase, body fluid [[id number]] Collected: 07/21/18 1400 Order Status: Completed Lab Status: Final result Updated: 07/21/181649 Specimen: Body Fluid from Thoracentesis Fluid FLUID LDH 148 U/L Comment: This is not a astronomy professor validated sample type for this method. No reference ra nges have been established. Testing performed at [facility], [address] [place] [address] pH, body fluid [[id number]] Collected: 07/21/18 1400 Order Status: Completed Lab Status: Final result Updated: 07/21/18 1426 Specimen: Body Fluid from Thoracentesis Fluid FLUID PH 7.48 Comment: Testing performed at [facility];[address] [place] [address] Blood Culture Set 1 [[id number]] Collected: 07/19/18 0853 Order Status: Completed Lab Status: Preliminary result Updated: 07/21/18 06 Specimen: Blood from Blood, peripheral draw Specimen Description BLOOD, PERIPHERAL DRAW SPECIAL REQUESTS RIGHT AC CULTURE NO GROWTH 2 DAYS Blood Culture Set 2 [[id number]] Collected: 07/19/18 0925 Order Status: Completed Lab Status: Preliminary result Updated: 07/21/18 06 Specimen: Blood from Blood, peripheral draw Specimen Description BLOOD, PERIPHERAL DRAW SPECIAL REQUESTS RT FOREARM CULTURE NO GROWTH 2 DAYS Respiratory Filmarray [[id number]] (Abnormal) Collected: 07/19/18 0132 Order Status: Completed [...] by Molecular Methodology Comment: Testing performed at [facility], [address] [place] [address] MRSA by PCR [[id number]] Collected: 07/19/18 013 Order Status: Completed Lab Status: Final result Updated: 07/19/18303 Specimen: Nasal from Nares(Nose) SOURCE NARES(NOSE) MRSA PCR NEGATIVE Comment: Testing performed at [facility];[address] [place] [address];[place] [address] Disposition: Home Condition: Stable Code Status: Full [...] Follow up: Tien Nicholson MD [address] [facility], [address] [place] [address] Schedule an appointment as soon as possible for a visit in 1 week [facility] NE[facility] [address] [place] [address] Schedule an appointment as soon as possible for a visit in 1 week [facility] PUL[facility] [address] [place] [address] Schedule an appointment as soon as [...] | | | renal disease) ([facility]) | protocol | | | | [...] Date of Service: 07/24/18 1028 Status: Signed M1A1 Tank Crewman: Iram Saleh RN (Registered Nurse) Disposition: Home [...] Date of Service: 07/24/18 1016 Status: Signed M1A1 Tank Crewman: Christina Aguilar RN (Registered Nurse) Discharge teaching given, prescriptions faxed by transplant case manager to pt's pharmacy. Pt denies c oncern. Ride home at bedside. Pt getting dressed now for discharge. onver arturo Transaction, Provider Unknown - 07/24/2018 10:12 AM PDT Case Management by Iram Saleh RN at 07/24/18 1012 Author: Iram Saleh RN Service: (none) Author Type: Registered Nurse Filed: 07/24/18 1014 Date of Service: 07/24/18 1012 Status: Signed M1A1 Tank Crewman: Iram Saleh RN (Registered Nurse) Discharge planning: Met with pt, she indicated her friend is on her way to transport her from the hospital, no other needs identified. ADÁN signed and copy placed in chart. Pt's discharge prescriptions was faxed to [facility], Billie Braxton MD - 07/24/2018 9:09 AM PDTFormatting of this note might be different from th e original. Progress Notes by Billie Gupta MD at 07/24/18 09 Author: Billie Gupta MD Service: Nephrology Author Type: Physician Filed: 07/24/18910 Date of Service: 07/24/18908 Status: Signed M1A1 Tank Crewman: Billie uGpta MD (Physician) [facility] Followup -Nephrology I saw Ms. Dara Louise today for follow-up. she is interviewed, examined and meds/ labs Have been reviewed. 23-year-old female with an extensive past medical history of IgA vasculitis, end-stage abdiel l disease on hemodialysis Monday and Monday (device test engineer Dr. Anguiano) , chronic c ombined heart failure, severe pulmonary hypertension, cor pulmonale, moderate mitral valve r egurgitation, severe tricuspid regurgitation and other chronic comorbidities who was dischar ged on 05/2018 from [facility] with bilateral pleural effusions and ascites status post thoracente sis 1.5 L removed transudative and 4 L ascitic fluid removed who presents to [facility] [place] [facility] for sepsis [...] 07/24/18524 Date of Service: 07/24/18454 Status: Signed M1A1 Tank Crewman: Minda Hudson RN (Registered Nurse) Pt reporting [...] (none) Author Type: Registered Nurse Filed: 07/23/18 6033 Date of Service: 07/23/181825 Status: Signed M1A1 Tank Crewman: Saundra Hartley RN (Registered Nurse) Pt continues [...] 07/23/181336 Date of Service: 07/23/181335 Status: Signed M1A1 Tank Crewman: Sotero Reinoso MD (Physician) [facility] Service: Hospitalist Progress Note Hospital Day: LOS: 4 days Briefly, 23-year-old female with an extensive past medical history of IgA vasculitis, end-s tage renal disease on hemodialysis Monday and Monday (device test engineer Dr. Anguiano) co mplicated with thrombosis of vascular dialysis stent on Plavix, hypertension, asthma, chroni c combined heart failure, severe pulmonary hypertension, cor pulmonale, moderate mitral valv e regurgitation, severe tricuspid regurgitation and other chronic comorbidities who was disc harged on 05/2018 from [facility] with bilateral pleural effusions and ascites status post thorace ntesis 1.5 L removed transudative and 4 L ascitic fluid removed who presents to [facility] E R from [place] [facility] for sepsis likely secondary to pulmonary [...] weeks after discharge and to follow-up with device test engineer and power press tender within 1 to 2 weeks after discharge [...] range Anemia in ESRD (end-stage renal disease) ([facility]) ASSESSMENT & PLAN 1. Sepsis: -Hemodynamically stable. -Noted at [facility] the patient was febrile with a T-max [...] The patient does follow up with outpatient power press tender (Dr. Mahmood) patient is tentative ly and [...] 07/23/18926 Date of Service: 07/23/18917 Status: Signed M1A1 Tank Crewman: Billie Gupta MD (Physician) [facility] Followup -Nephrology I saw Ms. Dara Louise today for follow-up. she is interviewed, examined and meds/ labs Have been reviewed. 23-year-old female with an extensive past medical history of IgA vasculitis, end-stage abdiel l disease on hemodialysis Monday and Monday (device test engineer Dr. Anguiano) , chronic c ombined heart failure, severe pulmonary hypertension, cor pulmonale, moderate mitral valve r egurgitation, severe tricuspid regurgitation and other chronic comorbidities who was dischar ged on 05/2018 from [facility] with bilateral pleural effusions and ascites status post thoracente sis 1.5 L removed transudative and 4 L ascitic fluid removed who presents to [facility] ER f [facility] ER for sepsis likely secondary to [...] 07/23/18622 Date of Service: 07/23/18622 Status: Signed M1A1 Tank Crewman: Shannon Martell RN (Registered Nurse) No acute [...] 07/22/181726 Date of Service: 07/22/181722 Status: Signed M1A1 Tank Crewman: Sotero Reinoso MD (Physician) [facility] Service: Hospitalist Progress Note Hospital Day: LOS: 3 days 23-year-old female with an extensive past medical history of IgA vasculitis, end-stage abdiel l disease on hemodialysis Monday and Monday (device test engineer Dr. Anguiano) complicated with thrombosis of vascular dialysis stent on Plavix, hypertension, asthma, chronic combine d heart failure, severe pulmonary hypertension, cor pulmonale, moderate mitral valve regurgi tation, severe tricuspid regurgitation and other chronic comorbidities who was discharged on 05/2018 from [facility] with bilateral pleural effusions and ascites status post thoracentesis 1.5 L removed transudative and 4 L ascitic fluid removed who presents to [facility] ER from [facility] ER for sepsis likely secondary to pneumonia. [...] range Anemia in ESRD (end-stage renal disease) ([facility]) ASSESSMENT & PLAN 1. Sepsis: -Hemodynamically stable. -Noted at [facility] the patient was febrile with a T-max [...] The patient does follow up with outpatient power press tender (Dr. Mahmood) patient is tentative ly and [...] Date of Service: 07/22/18 1609 Status: Addendum M1A1 Tank Crewman: Rafaela Patel RN (Registered Nurse) Related Notes: [...] Date of Service: 07/22/18 09 Status: Addendum M1A1 Tank Crewman: Billie Gupta MD (Physician) Related Notes: Original Note by KRISHNA Sahu (Advanced Registered Nurse Practitio [facility]) filed at 07/22/[address] [facility] Followup -Nephrology I saw Ms. Dara Louise today for follow-up. she is interviewed, examined and meds/ labs Have been reviewed. 23-year-old female with an extensive past medical history of IgA vasculitis, end-stage abdiel l disease on hemodialysis Monday and Monday (device test engineer Dr. Anguiano) complicated with thrombosis of vascular dialysis stent on Plavix, hypertension, asthma, chronic combine d heart failure, severe pulmonary hypertension, cor pulmonale, moderate mitral valve regurgi tation, severe tricuspid regurgitation and other chronic comorbidities who was discharged on 05/2018 from [facility] with bilateral pleural effusions and ascites status post thoracentesis 1.5 L removed transudative and 4 L ascitic fluid removed who presents to [facility] ER from [facility] ER for sepsis likely secondary to pneumonia. [...] 0656 Date of Service: 07/22/18653 Status: Signed M1A1 Tank Crewman: Priti Priest RN (Registered Nurse) SBP 80-100's, Pt reports slight lightheadedness with pressures in 80's. Afebrile. HR SR 80' s. No other changes over noc. [facility] Chart chart complete onver arturo Transaction, Provider Unknown - 07/21/2018 7:42 PM PDT Nurse Progress Note by Francesca Bustos RN at 07/21/181941 Author: Francesca Bustos RN Service: (none) Author Type: Registered Nurse Filed: 07/21/181942 Date of Service: 07/21/181941 Status: Signed M1A1 Tank Crewman: Francesca Bustos RN (Registered Nurse) No significant [...] Date of Service: 07/21/18 1233 Status: Signed M1A1 Tank Crewman: Sotero Reinoso MD (Physician) [facility] Service: Hospitalist Progress Note Hospital Day: LOS: 2 days 23-year-old female with an extensive past medical history of IgA vasculitis, end-stage abdiel l disease on hemodialysis Monday and Monday (device test engineer Dr. Anguiano) complicated with thrombosis of vascular dialysis stent on Plavix, hypertension, asthma, chronic combine d heart failure, severe pulmonary hypertension, cor pulmonale, moderate mitral valve regurgi tation, severe tricuspid regurgitation and other chronic comorbidities who was discharged on 05/2018 from [facility] with bilateral pleural effusions and ascites status post thoracentesis 1.5 L removed transudative and 4 L ascitic fluid removed who presents to [facility] ER from [facility] ER for sepsis likely secondary to pneumonia. [...] range Anemia in ESRD (end-stage renal disease) ([facility]) ASSESSMENT & PLAN 1. Sepsis: -Hemodynamically stable. -Noted at [facility] the patient was febrile with a T-max [...] The patient does follow up with outpatient power press tender (Dr. Mahmood) patient is tentative ly and [...] Date of Service: 07/21/18 1024 Status: Signed M1A1 Tank Crewman: Billie Gupta MD (Physician) [facility] Followup -Nephrology I saw . Dara [...] 07/21/18614 Date of Service: 07/21/18614 Status: Signed M1A1 Tank Crewman: Gris Hawk RN (Registered Nurse) Medicated for pain x1, nausea x1. No other acute changes noted. End of shift review complet e. onver arturo Transaction, Provider Unknown - 07/20/2018 7:44 PM PDT Nurse Progress Note by Francesca Bustos RN at 07/20/181943 Author: Francesca Bustos RN Service: (none) Author Type: Registered Nurse Filed: 07/20/181945 Date of Service: 07/20/181943 Status: Signed M1A1 Tank Crewman: Francesca Bustos RN (Registered Nurse) No significant [...] by Prashanth Estevez RN at 07/20/181624 Author: Prsahanth Estevez RN Service: (none) Author Type: Registered Nurse Filed: 07/20/181624 Date of Service: 07/20/181624 Status: Signed M1A1 Tank Crewman: Prashanth Estevez RN (Registered Nurse) Infection Prevention [...] completed Mycoplasma pneumoniae Droplet (DI) Prashanth Estevez [facility] blemo Sotero parker MD - 07/20/2018 4:15 PM PDT Progress Notes by Sotero Reinoso MD at 07/20/181614 Author: Sotero Reinoso MD Service: Hospitalist Author Type: Physician Filed: 07/20/181625 Date of Service: 07/20/181614 Status: Signed M1A1 Tank Crewman: Sotero Reinoso MD (Physician) [facility] Service: Hospitalist Progress Note Hospital Day: LOS: 1 day 23-year-old female with an extensive past medical history of IgA vasculitis, end-stage abdiel l disease on hemodialysis Monday and Monday (device test engineer Dr. Anguiano) complicated with thrombosis of vascular dialysis stent on Plavix, hypertension, asthma, chronic combine d heart failure, severe pulmonary hypertension, cor pulmonale, moderate mitral valve regurgi tation, severe tricuspid regurgitation and other chronic comorbidities who was discharged on 05/2018 from [facility] with bilateral pleural effusions and ascites status post thoracentesis 1.5 L removed transudative and 4 L ascitic fluid removed who presents to [facility] ER from [place] [facility] for sepsis [...] range Anemia in ESRD (end-stage renal disease) ([facility]) ASSESSMENT & PLAN 1. Sepsis: -Hemodynamically stable. -Noted at [facility] the patient was febrile with a T-max [...] The patient does follow up with outpatient power press tender (Dr. Mahmood) patient is tentative ly and [...] Date of Service: 07/20/18 1507 Status: Signed M1A1 Tank Crewman: Stephanie Hirsch RN (Registered Nurse) 07/20/18 1500 [...] Oriented Prior functional status independent Power of Hotel Maintenance Engineer No Anticipated Discharge Plan Post Acute Care Needs None at this time Plan communicated to patient/family Yes Resources Financial concerns No Transportation issues No Patient/Family concerns No Prescription Plan Yes Name of Pharmacy [facility] Previous home health equipment No Vascular access device No Ostomy/Drains/Appliances No Anticipated Disposition Facility Type Home Met with patient and discussed discharge planning, Pt is a 23 y.o., female with possible pn eumonia. Pt baseline is independent, lives alone, but has support. Patient's PCP is: Tine Nicholson Patient's insurance: Medicare/Medicaid Coverage concerns: none Medication coverage/concerns: none Rx Bedside Delivery: Community resources utilized / needed: Dialysis M/W/F @ [facility] Assistance in transportation: pov w/friends Identification of any specific education / training: tbd Barriers to Discharge / Alternative housing needed: none Anticipated DCP: Home Danae Hirsch RN,BSN,CM Yudy Arredondo ARNP - 07/20/2018 8:50 AM PDT Progress Notes by KRISHNA Nice at 07/20/18 0850 Author: KRISHNA Nice Service: Radiology Author Type: Advanced Registered Nurse Derikc hancock Filed: 07/20/18 0902 Date of Service: 07/20/18 0850 Status: Signed M1A1 Tank Crewman: KRISHNA Nice (Advanced Registered Nurse Practitioner) [facility] Service: Radiology Progress Note Patient evaluated [...] 07/20/18655 Date of Service: 07/20/18654 Status: Signed M1A1 Tank Crewman: Nereida Edwards RN (Registered Nurse) VS stable. [...] 07/19/181925 Date of Service: 07/19/181925 Status: Signed M1A1 Tank Crewman: Francesca Bustos RN (Registered Nurse) No significant [...] Service: Nephrology Author Type: Physician Filed: 07/19/18 3093 Date of Service: 07/19/181349 Status: Signed M1A1 Tank Crewman: Antonio Pabon MD (Physician) [facility] Service: NEPHROLOGY Dialysis Note Dara Louise 23 y.o. [phone] [id number] female [facility] Day: LOS: 0 days 23-year-old [...] AV FISTULA; Surgeon: Rik Simon MD; Location: [facility] OR; Service: Vascula r; Laterality: Left; cephalic AV FISTULA REPAIR Left 03/07/2014 Procedure: AV FISTULA - GRAFT REPAIR/REVISION; Surgeon: Rik Simon MD; Location: [facility] OR; Service: Vascular; Laterality: Left; DECLOT GRAFT Left 03/07/2014 Procedure: GRAFT - DECLOT; Surgeon: Rik Simon MD; Location: [facility] OR; Service: Vas cular; Laterality: Left; DIALYSIS FISTULA CREATION N/A 04/08/2014 Procedure: DIALYSIS CATHETER - INSERTION; Surgeon: Rik Simon MD; Location: [facility] OR ; Service: Vascular; Laterality: N/A; tunneled catheter LAPAROSCOPIC PERITONEAL DIALYSIS CATHETER INSERTION x2 LAPAROSCOPIC PERITONEAL DIALYSIS CATHETER INSERTION Right 07/2013 current dialysis access MWF dialysis RENAL BIOPSY RENAL BIOPSY Left 2003 SUPERFICIALIZATION OF AV FISTULA Left 06/24/2014 Procedure: AV FISTULA - SUPERFICIALIZATION; Surgeon: Rik Simon MD; Location: [facility] OR; Service: Vascular; Laterality: Left; Prescriptions [...] on file Social History Narrative Lives in [facility], 2 wks ago fell at home [...] earlier and charting completed later Dictation software, [employer], used which may contain error for similar [...] Date of Service: 07/19/18 1020 Status: Signed M1A1 Tank Crewman: Francesca Bustos RN (Registered Nurse) No significant [...] Date of Service: 07/19/18 0801 Status: Addendum M1A1 Tank Crewman: Sotero Reinoso MD (Physician) Related Notes: Original Note by Sotero Reinoso MD (Physician) filed at 07/19/[address] [facility] Service: Hospitalist Progress Note Hospital Day: LOS: 0 days 23-year-old female with an extensive past medical history of IgA vasculitis, end-stage abdiel l disease on hemodialysis Monday and Monday (device test engineer Dr. Anguiano) complicated with thrombosis of vascular dialysis stent on Plavix, hypertension, asthma, chronic combine d heart failure, severe pulmonary hypertension, cor pulmonale, moderate mitral valve regurgi tation, severe tricuspid regurgitation and other chronic comorbidities who was discharged on 05/2018 from [facility] with bilateral pleural effusions and ascites status post thoracentesis 1.5 L removed transudative and 4 L ascitic fluid removed who presents to [facility] ER from [facility] ER for sepsis likely secondary to pneumonia. [...] -Hemodynamically stable except for tachycardia. -Noted at [facility] the patient was febrile with a T-max [...] The patient does follow up with outpatient power press tender (Dr. Mahmood) patient is tentative ly and [...] 07/19/18129 Date of Service: 07/19/18129 Status: Signed M1A1 Tank Crewman: Jae Gutierres RPH (Pharmacist) Renal Dosing Monitoring: [...] [address] | | | | | | [place] [address] | | | | | | [phone] | | | | | | | [...] | | | | performed at [facility];[address] | | LAB | | | | [address];[place] | | | | | | [phone] | | | | + + + [...] | | | | performed at [facility] [place];[address] | | | | | | [facility];[place], [place] | | | | | | [address] | | | | + + + [...] | | | | performed at [facility];[address] | | | | | | [address] [facility];[place], [place] | | | | | | [address] | | | | + + + [...] EXTERNAL | | | | performed at [facility], [address] | | LAB | | | | [facility], | | | | | | [place] [address] | | | | + + + [...] | | | | | performed at [facility], [address] | | | | | | [facility], | | | | | | [place] [address] | | | | + + + [...] | EXTERNAL LAB | | not a astronomy professor validated sample type for this method. No reference | | | ranges have been established. Testing performed at [facility], [address] | | | [place] [address] FLUID TP SOURCE | | | THORACENTESIS Testing performed at [facility];[address] | | [address];[place] [address] | | + + + + +---------+ [...] EXTERNAL LAB | | is not a astronomy professor validated sample type for this method. No | | | reference ranges have been established. Testing performed at [facility], | | | [address] [place] [address] | | + + + + +---------+ [...] LAB | | Testing performed at [facility];[address] [place] [address];[place] [address] | | + + + + +---------+ [...] | | | | performed at [facility];[address] | | LAB | | | | [address]ica [address];[place] | | | | | | [address] | | | | + + + [...] | | | | performed at [facility];[address] | | LAB | | | | [address];[place], [place] | | | | | | [address] | | | | + + + [...] with arms on the | | | [id number] table. Ultrasound was utilized to tk an [...] | | possibility of "sound alike" electrical engineering draftsperson errors, addition and/or | | | deletions [...] at the bedside with arms on the [id number] | | table. Ultrasound was utilized to [...] system. The possibility of "sound alike" electrical engineering draftsperson errors, | | addition and/or deletions may [...] The possibility of "sound a like" electrical engineering draftsperson errors, addition and/or deletions may occur. If [...] | | | | | | at [facility], [address] | | | | | | [address], | | | | | | [place] [address] | | | | | |Testing performed at [facility], [address], [place] [address] | | | | | | | [...] | | | | | performed at [facility], [address] | | | | | | [place], | | | | | | [place] [address] | | | | + + + [...] | | | | performed at [facility];[address] | mmol/L | LAB | | | | [address];[place], [place] | | | | | | [address] | | | | + + + [...] | | Patient | performed at [facility];[address] | | LAB | | | | [address];[place], [place] | | | | | | [address] | | | | + + + [...] | | | | performed at [facility];[address] | | | | | | [address];[place], [place] | | | | | | [address] | | | | + + + [...] | | | Estimate | performed at [facility] | | LAB | | | | [address]ica [address];[place], [place] | | | | | | [address] | | | | + + + [...] | | | | performed at [facility] | | | | | | [facility];[place], [place] | | | | | | [address] | | | | + + + [...] | | | | | | [facility];[address] [place] [address] | | | | | | [facility];[place] [address] | | | | + + + [...] | | | | performed at [facility];[address] | | | | | | [facility];[place], [place] | | | | | | [id number] ON 07/19 | | | | | [...] | | | | | | [facility];[address] [place] [address] | | | | | | Blvd;[place] [address] | | | | + + + [...] | | | | | | at [facility], [address] | | | | | | [facility], | | | | | | [place] [address] | | | | | |Testing performed at [facility], [address] [facility], [place] [address] | | | | | | | [...] EXTERNAL | | | | performed at [facility], [address] | | LAB | | | | Opal [facility], | | | | | | [place] [address] | | | | + + + [...] EXTERNAL | | | | performed at [facility], [address] | | LAB | | | | [place], | | | | | | [place] [address] | | | | + + + [...] | | | | | performed at [facility], [address] | | | | | | [facility], | | | | | | [place] [address] | | | | + + + [...] NEGATIVE Testing | | | performed at [facility];[address] [place] [address];[place] [address] | | + + + + +---------+ [...] at | | | [facility], [address] [place] [address] | | + + + + +---------+ [...] | | | | performed at [facility];[address] | mmol/L | LAB | | | | [place] | | | | | | [address] | | | | + + + [...] | | | | | at [facility];[address] [place] [address] | | | | | | [facility];[place] [address] | | | | + + + [...] | | | | | | [facility];[address] [facility] | | | | | | Blvd;[place] [address] | | | | + + + [...] | | QUALITATIVE | performed at [facility] | | LAB | | | | Nica [address]pe[address];[place] | | | | | | [address] | | | | + + + [...]
--- OUTSIDE RECORDS SUMMARY | ~2019-02-17 | XMS | Encounter Summary ---
Demographics + + + | Address | [address] | | | [place] [address] | + + + | Home Phone [...] | | | | | [place] [address] | | + + + + + | Thania Mallory | ECON | [address] | | | | | [place] [address] | | + + + + + | Deidra Weldon | ECON | [address] | | | | | [place] | | | | | [address] | | + + + + + Care Team Providers + +------+ + | Care Editor & Co Founder Name | Role | Phone | + [...] | | | [place], | [place] [address] | | | | | [place] [address] | [phone] | | | | | | | [...] Denise | | | | | | [place], [place] | | | | | | [address] | | | | | | [phone] | | | | | | | | +--------+ + + + + documented as of this encounter Visit Diagnoses Not on filedocumented in this encounter"
--- OUTSIDE RECORDS SUMMARY | ~2019-02-17 | XMS | Encounter Summary ---
Demographics + + + | Address | [address] | | | [place] [address] | + + + | Home Phone [...] | Author | [facility] | | | and Josephana | + + + | Organization | [facility] | | | and Josephana [...] Team Providers + +------+ + | Care Sorter Lumber Straightener Name | Role | Phone | + +------+ + | Tien Nicholson MD | PCP | | + +------+ + Encounter Details +--------+ + + + + | Date | Type | Department | Care Team | Description | +--------+ + + + + | 05/26/ | Hospital | [facility] | Mayco Rizvi MD | Chest pain, | | 2019 - | Encounter | [facility] | [address] [place] | unspecified type; | | | | CARE FLOOR [address] | [address] [place], [place] | Hypoalbuminemia; | | 06/01/ | | [address] | [address] | Anemia in ESRD | | 2019 | | [place], [place] | | (end-stage renal | | | | [address] | | disease) ([facility]); | | | | [phone] | | End-stage renal | | | | | | disease on | | | | | | hemodialysis ([facility]); | | | | | | [...] | | | failure) ([facility]) | [...] Date of Service: 06/01/18 0959 Status: Addendum Director Pharmacovigilance: Darell Rossi MD (Physician) Related Notes: Original Note by Darell Rossi MD (Physician) filed at 06/04/18 2259 [facility] Service: Hospitalist Physician Discharge Summary Pt: Dara Louise AGE/SEX: 23 y.o. female ROOM: [address] [place] [address] PCP: TIEN NICHOLSON : 1995 Admit date: [...] 17. The mitral valve is normal. 18. Pdmv-qo-giktz ate eccentric mitral regurgitation is present. 19. [...] of chronic disease who went to [facility] with increasing shortness of breath found to have right pleural effusion who was transfer red to [facility] underwent right-sided diagnostic and therapeutic thoracocentesis [...] hyperkalemia with that. I discussed with the slab lifting supervisor as well regarding not being on [place]/ARB. [...] Component Value Units Date/Time Culture, Body Fluid [[id number]] Collected: 05/26/18 1412 Specimen: Body Fluid from Pleural Fluid Updated: 05/30/18 0733 Specimen Description PLEURAL FLUID GRAM STAIN WBC'S SEEN GRAM STAIN NO ORGANISMS SEEN GRAM STAIN STAIN PERFORMED ON CYTOSPIN CULTURE NO GROWTH 4 DAYS Culture, Body Fluid [[id number]] Collected: 05/26/18 1513 Specimen: Other from Ascites Fluid Updated: 05/30/18 0732 Specimen Description ASCITES FLUID GRAM STAIN STAIN PERFORMED ON CYTOSPIN GRAM STAIN WBC'S SEEN GRAM STAIN NO EPITHELIAL CELLS SEEN GRAM STAIN NO ORGANISMS SEEN CULTURE NO GROWTH 4 DAYS Gram stain [[id number]] Collected: 05/29/18 1256 Specimen: Sputum from Thoracic Fluid Updated: 05/29/18 2339 Specimen Description THORACIC FLUID CULTURE 1+ WBC'S SEEN NO ORGANISMS SEEN Lactate dehydrogenase, body fluid [[id number]] Collected: 05/29/18 1256 Specimen: Body Fluid from Pleural, Right Updated: 05/29/18 1619 FLUID LDH 151 U/L Cholesterol, body fluid [[id number]] Collected: 05/29/18 1256 Specimen: Body Fluid from [...] if needed. Follow-Up: Tien Nicholson MD [address] [place] [address] In 1 week Carolina Mahmood DO [address] [place] [facility] [id number] In 1 week Daniela Ibarra MD [address] [facility] [id number] In 1 week Discharge took more than 35 minutes, to include final examination, discussion of admission, and preparation of prescriptions, instructions for ongoing care, follow up and dictation of summary. Signed: DARELL ROSSI MD 06/01/2018 9:59 AM Dictation software, [employer], used which may contain error for similar [...] Date of Service: 06/01/18 150 Status: Signed Director Pharmacovigilance: Tino Paiz CRT (Certified Respiratory Therapist) [facility] Department of Respiratory Longterm Oxygen Evaluation (Evaluation is valid for 48 [...] (none) Author Type: Registered Nurse Filed: 06/01/18 7631 Date of Service: 06/01/18 1500 Status: Signed Director Pharmacovigilance: Autumn Moy RN (Registered Nurse) Pt was [...] Date of Service: 06/01/18 1248 Status: Signed Director Pharmacovigilance: Leanna Ariza RN (Registered Nurse) Pt will d/c home today --already established on HD/[place] MWF --will have O2 eval today No other needs Angela Antonio Carrasco MD - 06/01/2018 10:52 AM PDTFormatting of this note might be different from the orig inal. Progress Notes by Antonio Benjamin MD at 06/01/18 1052 Author: Antonio Benjamin MD Service: Nephrology Author Type: Physician Filed: 06/05/18 1253 Date of Service: 06/01/18 1052 Status: Signed Director Pharmacovigilance: Antonio Benjamin MD (Physician) [facility] Service: NEPHROLOGY Dialysis/ Progress Note Dara Lundberg Shiraz 23 y.o. [id number] female [facility] Day: LOS: 6 days Patient [...] Rik Simon MD; Location: [facility] MAIN OR; Service: Vascula r; Laterality: Left; cephalic AV FISTULA REPAIR Left 03/07/2014 Procedure: AV FISTULA - GRAFT REPAIR/REVISION; Surgeon: Rik Simon MD; Location: [facility] MA IN OR; Service: Vascular; Laterality: Left; DECLOT GRAFT Left 03/07/2014 Procedure: GRAFT - DECLOT; Surgeon: Rik Simon MD; Location: [facility] MAIN OR; Service: Vas cular; Laterality: Left; DIALYSIS FISTULA CREATION N/A 04/08/2014 Procedure: DIALYSIS CATHETER - INSERTION; Surgeon: Rik Simon MD; Location: [facility] MAIN OR ; Service: Vascular; Laterality: N/A; tunneled catheter LAPAROSCOPIC PERITONEAL DIALYSIS CATHETER INSERTION x2 LAPAROSCOPIC PERITONEAL DIALYSIS CATHETER INSERTION Right 07/2013 current dialysis access MWF dialysis RENAL BIOPSY SUPERFICIALIZATION OF AV FISTULA Left 06/24/2014 Procedure: AV FISTULA - SUPERFICIALIZATION; Surgeon: Rik Simon MD; Location: [facility] MAIN OR; Service: Vascular; Laterality: Left; [...] radiologist report and is used for image [employer] only Us Abdomen Limited Result Date: 05/28/2018 [...] 17. The mitral valve is normal. 18. Vnan-il-gqinilva eccentric mitral regurgitation i s present. 19. [...] mitral valve is normal. Mitral Kait ve: Vrtf-mr-uazhrahg eccentric mitral regurgitation is present. Tricuspid Valve: [...] maxP.08 mmHg TR Vmax: 2.7 4 m/s Fur Comber: MOO Authenticated by: Robel Yusuf MD Report [...] 17. The mitral valve is normal. 18. Yfzj-iq-xrwuz ate eccentric mitral regurgitation is present. 19. [...] pleural spac e is punctured with an 8-Mohawk thoracentesis catheter. Fluid is aspirated without complicat [...] earlier and charting completed later Dictation software, [employer], used which may contain error for similar [...] 0632 Date of Service: 06/01/1835 Status: Signed Director Pharmacovigilance: Aury Eldridge RN (Registered Nurse) Pts VSS. [...] 05/31/181840 Date of Service: 05/31/181840 Status: Signed Director Pharmacovigilance: Romelia Cooley RN (Registered Nurse) End of shift chart review complete. Romelia Cooley RN koum, René Mckeon MD - 05/31/2018 11:32 AM PDTFormatting of this note might be different from the candice ginal. Progress Notes by René Anguiano MD at 05/31/18 113 Author: René Anguiano MD Service: Nephrology Author Type: Physician Filed: 05/31/18 1654 Date of Service: 05/31/18 113 Status: Addendum Director Pharmacovigilance: René Anguiano MD (Physician) Related Notes: Original [...] put on "an antibiotic" for pneumonia at [facility] ED. Was throwing up & could [...] the prelim submitted orders, MWF No acute PARISH NURSE indication ESTEFANY as indicated with HD Protein [...] 0951 Date of Service: 05/31/18941 Status: Signed Director Pharmacovigilance: Darell Rossi MD (Physician) [facility] Service: Hospitalist Progress Note Pt: Dara Louise AGE/SEX: 23 y.o. female ROOM: [address] [place] [address] : 1995 PCP: TIEN NICHOLSON ADMIT DATE: 05/26/2018 TODAY'S DATE: 05/31/2018 Hospital Day/Hospital Course: LOS: [address] Figueroa 23-year-old female with past medical history of end-stage renal disease on hemodialysis Mon, hypertension, anemia of chronic disease who went to [facility] with increasing shortness of breath found to have right pleural effusion who was transfer red to [facility] underwent right-sided diagnostic and therapeutic thoracocentesis [...] Component Value Units Date/Time Culture, Body Fluid [[id number]] Collected: 05/26/18 1412 Specimen: Body Fluid from Pleural Fluid Updated: 05/30/18 0733 Specimen Description PLEURAL FLUID GRAM STAIN WBC'S SEEN GRAM STAIN NO ORGANISMS SEEN GRAM STAIN STAIN PERFORMED ON CYTOSPIN CULTURE NO GROWTH 4 DAYS Culture, Body Fluid [[id number]] Collected: 05/26/18 1513 Specimen: Other from Ascites Fluid Updated: 05/30/18 0732 Specimen Description ASCITES FLUID GRAM STAIN STAIN PERFORMED ON CYTOSPIN GRAM STAIN WBC'S SEEN GRAM STAIN NO EPITHELIAL CELLS SEEN GRAM STAIN NO ORGANISMS SEEN CULTURE NO GROWTH 4 DAYS Gram stain [[id number]] Collected: 05/29/18 1256 Specimen: Sputum from Thoracic Fluid Updated: 05/29/18 2339 Specimen Description THORACIC FLUID CULTURE 1+ WBC'S SEEN NO ORGANISMS SEEN Lactate dehydrogenase, body fluid [[id number]] Collected: 05/29/18 1256 Specimen: Body Fluid from Pleural, Right Updated: 05/29/18 1619 FLUID LDH 151 U/L Cholesterol, body fluid [[id number]] Collected: 05/29/18 1256 Specimen: Body Fluid from Pleural, Right Updated: 05/29/18 1619 FLUID CHOLESTEROL 56 mg/dL Sputum culture [[id number]] Collected: 05/27/182014 Specimen: Sputum from Sputum Updated: [...] 17. The mitral valve is normal. 18. Kyjk-qu-mdnfk ate eccentric mitral regurgitation is present. 19. [...] of chronic disease who went to [facility] with increasing shortness of breath due to acute congestive heart failure Acute systolic congestive heart failure with Pleural Effusion: Admitted with acute systolic congestive heart failure with bilateral pleural effusion stat us post thoracentesis 2. Her breathing has improved. She is talking to me appropriately. N ot in any kind of distress. guest services representative to initiate the discharge plan. Possible [...] MD, FACP 05/31/2018 9:42 AM Dictation software, [employer], used which may contain error for similar [...] 05/31/18253 Date of Service: 05/31/18253 Status: Signed Director Pharmacovigilance: Nandini Robertson RN (Registered Nurse) Chart review completed. onver arturo Transaction, Provider Unknown - 05/30/2018 6:37 PM PDT Nurse Progress Note by Kyra Amador RN at 05/30/181836 Author: Kyra Amador RN Service: (none) Author Type: Registered Nurse Filed: 05/30/181842 Date of Service: 05/30/181836 Status: Signed Director Pharmacovigilance: Kyra Amador RN (Registered Nurse) VSS. Pt [...] Date of Service: 05/30/18 0909 Status: Signed Director Pharmacovigilance: Darell Rossi MD (Physician) [facility] Service: Hospitalist Progress Note Pt: Dara Toño Louise AGE/SEX: 23 y.o. female ROOM: [facility]- : 1995 PCP: TIEN NICHOLSON ADMIT DATE: 05/26/2018 TODAY'S DATE: 05/30/2018 Hospital Day/Hospital Course: LOS: [address] Figueroa 23-year-old female with past medical history of end-stage renal disease on hemodialysis Mon day Monday, hypertension, anemia of chronic disease who went to [facility] with increasing shortness of breath found to have right pleural effusion who was transfer red to [facility] underwent right-sided diagnostic and therapeutic thoracocentesis [...] Component Value Units Date/Time Culture, Body Fluid [[id number]] Collected: 05/26/18 1412 Specimen: Body Fluid from Pleural Fluid Updated: 05/30/18 7135 Specimen Description PLEURAL FLUID GRAM STAIN WBC'S SEEN GRAM STAIN NO ORGANISMS SEEN GRAM STAIN STAIN PERFORMED ON CYTOSPIN CULTURE NO GROWTH 4 DAYS Culture, Body Fluid [[id number]] Collected: 05/26/18 1513 Specimen: Other from Ascites Fluid Updated: 05/30/18 0732 Specimen Description ASCITES FLUID GRAM STAIN STAIN PERFORMED ON CYTOSPIN GRAM STAIN WBC'S SEEN GRAM STAIN NO EPITHELIAL CELLS SEEN GRAM STAIN NO ORGANISMS SEEN CULTURE NO GROWTH 4 DAYS Gram stain [[id number]] Collected: 05/29/18 1256 Specimen: Sputum from Thoracic Fluid Updated: 05/29/18 2339 Specimen Description THORACIC FLUID CULTURE 1+ WBC'S SEEN NO ORGANISMS SEEN Lactate dehydrogenase, body fluid [[id number]] Collected: 05/29/18 1256 Specimen: Body Fluid from Pleural, Right Updated: 05/29/18 1619 FLUID LDH 151 U/L Cholesterol, body fluid [[id number]] Collected: 05/29/18 1256 Specimen: Body Fluid from Pleural, Right Updated: 05/29/18 1619 FLUID CHOLESTEROL 56 mg/dL Sputum culture [[id number]] Collected: 05/27/182014 Specimen: Sputum from Sputum Updated: [...] 17. The mitral valve is normal. 18. Msug-dg-helqa ate eccentric mitral regurgitation is present. 19. [...] of chronic disease who went to [facility] with increasing shortness of breath [...] MD, FACP 05/30/2018 9:10 AM Dictation software, [employer], used which may contain error for similar [...] 05/30/18417 Date of Service: 05/30/18416 Status: Signed Director Pharmacovigilance: Nandini Robertson RN (Registered Nurse) Pt did well overnight. VSS. Chart review completed. Carolina Cantor, Medical Student - 05/29/2018 7:56 PM PDT Progress Notes by Carolina Mahmood DO at 05/29/181955 Author: Carolina Mahmood DO Service: Cardiology Author Type: Physician Filed: 05/29/182014 Date of Service: 05/29/181955 Status: Signed Director Pharmacovigilance: Carolina Mahmood DO (Physician) [facility] Service: Cardiology Progress Note Hospital Day: LOS: [...] 05/29/181742 Date of Service: 05/29/181739 Status: Signed Director Pharmacovigilance: Flaco Can RN (Registered Nurse) Pt VSS. [...] Service: Hospitalist Author Type: Physician Filed: 05/29/18 0896 Date of Service: 05/29/181342 Status: Signed Director Pharmacovigilance: Anthony Figueroa MD (Physician) Hospitalist Progress Note Dara Louise 23 y.o. [id number] female [facility] Day: LOS: 3 days Patient Summary: 23-year-old female with past medical history of end-stage renal dis ease on hemodialysis Monday, hypertension, anemia of chronic disease who we nt to [facility] with increasing shortness of breath found to have right pleural e ffusion who was transferred to [facility] underwent right-sided diagnostic and therapeu tic [...] Value Units Date/Time Lactate dehydrogenase, body fluid [[id number]] Collected: 05/29/18 125 Specimen: Body Fluid from Pleural, Right Updated: 05/29/18 1315 Cholesterol, body fluid [[id number]] Collected: 05/29/18 125 Specimen: Body Fluid from Pleural, Right Updated: 05/29/18 1315 Gram stain [[id number]] Collected: 05/29/18 125 Specimen: Sputum from OTHR-w source desc (F6) Updated: 05/29/18 1309 Sputum culture [[id number]] Collected: 05/27/182014 Specimen: Sputum from Sputum Updated: 05/29/18 0947 Specimen Description SPUTUM GRAM STAIN LESS THAN 10 WBCS/LPF GRAM STAIN LESS THAN 10 SEC/LPF GRAM STAIN NO ORGANISMS SEEN CULTURE 1+ NORMAL UPPER RESPIRATORY ALESSANDRO HIV 1/2 Ab reflex [[id number]] Collected: 05/28/18 1236 Specimen: Blood Updated: 05/29/18 0942 HIV1/HIV2 NON REACTIVE Protime-INR [[id number]] Collected: 05/29/1852 Specimen: Blood Updated: 05/29/1840 INR 1.5 APTT [[id number]] Collected: 05/29/1852 Specimen: Blood Updated: 05/29/1840 APTT 29 seconds Culture, Body Fluid [[id number]] Collected: 05/26/18 1513 Specimen: Other from Ascites Fluid Updated: 05/29/18 0920 Specimen Description ASCITES FLUID GRAM STAIN STAIN PERFORMED ON CYTOSPIN GRAM STAIN WBC'S SEEN GRAM STAIN NO EPITHELIAL CELLS SEEN GRAM STAIN NO ORGANISMS SEEN CULTURE NO GROWTH 3 DAYS Culture, Body Fluid [[id number]] Collected: 05/26/18 1412 Specimen: Body Fluid from Pleural Fluid Updated: 05/29/18917 Specimen Description PLEURAL FLUID CULTURE NO GROWTH 3 DAYS Comprehensive metabolic panel [[id number]] (Abnormal) Collected: 05/29/18456 Specimen: Blood Updated: 05/29/18615 [...] mL/min/1.73m2 CBC W/Auto Diff (Reflex to Manual) [[id number]] (Abnormal) Collected: 05/29/18456 Specimen: Blood Updated: 05/29/18612 [...] 0.05 K/uL MORPHOLOGY 2+ hCG, serum, qualitative [[id number]] Collected: 05/28/18922 Specimen: Blood Updated: 05/28/181949 TEST,SERUM NEGATIVE C-reactive protein [[id number]] (Abnormal) Collected: 05/28/18922 Specimen: Blood Updated: 05/28/181940 CRP 5.1 (H) mg/dL Sedimentation rate, automated [[id number]] Collected: 05/28/18922 Specimen: Blood Updated: 05/28/18 1734 ESR 2 mm/Hr Hepatitis panel,acute [[id number]] Collected: 05/28/18 1236 Specimen: Blood Updated: 05/28/18 1650 HAV AB,IGM NON REACTIVE HEP B SURFACE AG NON REACTIVE ANTI HEP B CORE,IGM NON REACTIVE HEPATITIS C NON REACTIVE HEPATITIS INTERP No serologic evidence of HAV, HBV, or HCV infection. Troponin I [[id number]] Collected: 05/28/18922 Specimen: Blood Updated: 05/28/18 143 TROPONIN I 0.034 ng/mL Troponin I [[id number]] Collected: 05/28/18 1359 Specimen: Blood Updated: 05/28/18 143 TROPONIN I 0.037 ng/mL Renal function panel [[id number]] (Abnormal) Collected: 05/28/18 1209 Specimen: Blood from Blood Updated: 05/28/18 1302 SODIUM 141 mmol/L POTASSIUM 4.3 mmol/L CHLORIDE 101 mmol/L CO2 29 mmol/L ANION GAP AGAP 15 mmol/L GLUCOSE 78 mg/dL BUN 43 (H) mg/dL CREATININE 7.97 (H) mg/dL CALCIUM 9.1 mg/dL Albumin 3.6 g/dL PHOSPHORUS 6.3 (H) mg/dL EGFR 6 (L) mL/min/1.73m2 CBC W/Auto Diff (Reflex to Manual) [[id number]] (Abnormal) Collected: 05/28/18922 Specimen: Blood Updated: 05/28/18 [...] 0.05 K/uL MORPHOLOGY 1+ Comprehensive metabolic panel [[id number]] (Abnormal) Collected: 05/28/18922 Specimen: Blood Updated: 05/28/18 [...] (H) U/L EGFR 6 (L) mL/min/1.73m2 TSH [[id number]] Collected: 05/28/18922 Specimen: Blood Updated: 05/28/18 1210 TSH 1.270 uIU/mL Pathologist consult [[id number]] Collected: 05/26/18 1412 Updated: 05/28/18 1113 Pathologist Consult -- Hepatitis panel, chronic [[id number]] (Abnormal) Collected: 05/27/18 1758 Updated: 05/27/18 203 Hep A Total Ab REACTIVE (A) HEP B SURFACE AG NON REACTIVE HEP B CORE AB,TOTAL NON REACTIVE HEP B SURFACE ANTIBODY 3.27 (H) IV HEPATITIS C NON REACTIVE HEPATITIS INTERP Current or past HAV infection. Past HBV infection or vaccination. No ser ologic evidence of HCV infection. CBC w/auto diff (reflex to manual) [[id number]] (Abnormal) Collected: 05/27/18 0425 Specimen: Blood Updated: [...] K/uL MORPHOLOGY 2+ Platelet Estimate DECREASED Phosphorus [[id number]] (Abnormal) Collected: 05/27/18424 Specimen: Blood Updated: 05/27/18628 PHOSPHORUS 8.0 (H) mg/dL Basic Metabolic Panel [[id number]] (Abnormal) Collected: 05/27/18424 Specimen: Blood Updated: 05/27/18628 SODIUM 135 mmol/L POTASSIUM 5.9 (H) mmol/L CHLORIDE 96 (L) mmol/L CO2 25 mmol/L ANION GAP AGAP 20 mmol/L GLUCOSE 74 mg/dL BUN 51 (H) mg/dL CREATININE 9.2 (H) mg/dL BUN/CREAT 6 CALCIUM 9.4 mg/dL EGFR 5 (L) mL/min/1.73m2 Magnesium [[id number]] (Abnormal) Collected: 05/27/18424 Specimen: Blood Updated: 05/27/18628 MAGNESIUM 2.7 (H) mg/dL Brain natriuretic peptide [[id number]] (Abnormal) Collected: 05/27/18424 Specimen: Blood Updated: 05/27/1846 BRAIN NATRIURETIC PEPTIDE 1,153.92 (H) pg/mL Respiratory Filmarray [[id number]] (Abnormal) Collected: 05/26/181805 Specimen: Nasopharynx/Oropharynx Updated: 05/26/182141 [...] performed by Molecular Methodology MRSA by PCR [[id number]] Collected: 05/26/181805 Specimen: Nasopharyngeal from Nares(Nose) Updated: 05/26/182025 SOURCE NARES(NOSE) MRSA PCR NEGATIVE Procalcitonin [[id number]] (Abnormal) Collected: 05/26/181726 Updated: 03/23/19 1839 PROCALCITONIN 0.76 (H) ng/mL Albumin, Body Fluid [[id number]] Collected: 05/26/181411 Specimen: Body Fluid from Lung, Right Lower Lobe Updated: 05/26/18 172 FLUID ALBUMIN 2.3 g/dL Total Protein, Body Fluid [[id number]] Collected: 05/26/181411 Specimen: Body Fluid from Lung, Right Lower Lobe Updated: 05/26/18 172 FLUID TOTAL PROTEIN 4.2 g/dL FLUID TP SOURCE PLEURAL FLUID Cell count, Body Fluid [[id number]] Collected: 05/26/181411 Specimen: Body Fluid from Lung, Right Lower Lobe Updated: 05/26/18 170 FLUID TYPE PLEURAL FLUID COLOR SAMMIE APPEARANCE CLOUDY RBC'S 3,000 /mm3 TOTAL NUCLEATED CELLS 253 /mm3 NEUTROPHILS 22 % LYMPHOCYTES 8 % MONOCYTES/MACROPHAGES 65 % Mesothelial Cells 5 % CELLS COUNTED 100 pH, Body Fluid [[id number]] Collected: 05/26/181411 Specimen: Body Fluid from Lung, [...] 17. The mitral valve is normal. 18. Qmaa-lp-gyputgdu eccentric mitral regurgitation i s present. 19. [...] mitral valve is normal. Mitral Kait ve: Kzvx-ra-chykwldl eccentric mitral regurgitation is present. Tricuspid Valve: [...] maxP.08 mmHg TR Vmax: 2.7 4 m/s Fur Comber: MOO Authenticated by: Robel Yusuf MD Report [...] 17. The mitral valve is normal. 18. Qaiq-jm-esghn ate eccentric mitral regurgitation is present. 19. [...] imbalance Acute systolic CHF (congestive heart failure) ([facility]) Transaminitis ASSESSMENT & PLAN Bilateral pleural effusion [...] Service: Nephrology Author Type: Physician Filed: 05/31/18 2562 Date of Service: 05/29/18725 Status: Addendum Director Pharmacovigilance: René Anguiano MD (Physician) Related Notes: Original Note by KRISHNA Waters (Nurse Practitioner) filed at 05/05 08/22 4716 Hospital Problem List: Active Problems: ESRD on [...] put on "an antibiotic" for pneumonia at [facility] ED. Was throwing up & could [...] the prelim submitted orders, MWF No acute PARISH NURSE indication ESTEFANY as indicated with HD Protein [...] 0555 Date of Service: 05/29/18553 Status: Signed Director Pharmacovigilance: Vernell Weston RN (Registered Nurse) End of [...] 05/28/181940 Date of Service: 05/28/181939 Status: Signed Director Pharmacovigilance: Saundra Hartley RN (Registered Nurse) No acute [...] 05/28/181721 Date of Service: 05/28/181720 Status: Signed Director Pharmacovigilance: Cayden Caceres RN (Registered Nurse) UF 2 L with HD today. nthony Figueroa MD - 05/28/2018 12:26 PM PDTFormatting of this note might be different from the or iginal. Progress Notes by Anthony Figueroa MD at 05/28/18 1226 Author: Anthony Figueroa MD Service: Hospitalist Author Type: Physician Filed: 05/28/18 1233 Date of Service: 05/28/18 1226 Status: Signed Director Pharmacovigilance: Anthony Figueroa MD (Physician) Hospitalist Progress Note Dara Louise 23 y.o. [id number] female [facility] Day: LOS: 2 days Patient Summary: 23-year-old female with past medical history of end-stage renal dis ease on hemodialysis Monday, hypertension, anemia of chronic disease who we nt to [facility] with increasing shortness of breath found to have right pleural e ffusion who was transferred to [facility] underwent right-sided diagnostic and therapeu tic [...] Component Value Units Date/Time Culture, Body Fluid [[id number]] Collected: 05/26/18 0317 Specimen: Other from Ascites Fluid Updated: 05/28/18 1225 Specimen Description ASCITES FLUID GRAM STAIN STAIN PERFORMED ON CYTOSPIN GRAM STAIN WBC'S SEEN GRAM STAIN NO EPITHELIAL CELLS SEEN GRAM STAIN NO ORGANISMS SEEN CULTURE NO GROWTH 2 DAYS Culture, Body Fluid [[id number]] Collected: 05/26/18 141 Specimen: Body Fluid from Pleural Fluid Updated: 05/28/18 1223 Specimen Description PLEURAL FLUID CULTURE NO GROWTH 2 DAYS Comprehensive metabolic panel [[id number]] (Abnormal) Collected: 05/28/18922 Specimen: Blood Updated: 05/28/18 [...] (H) U/L EGFR 6 (L) mL/min/1.73m2 TSH [[id number]] Collected: 05/28/18922 Specimen: Blood Updated: 05/28/18 1210 TSH 1.270 uIU/mL Pathologist consult [[id number]] Collected: 05/26/18 141 Updated: 05/28/18 1113 Pathologist Consult -- Troponin I [[id number]] Collected: 05/28/18922 Specimen: Blood Updated: 05/28/18 1055 CBC W/Auto Diff (Reflex to Manual) [[id number]] Collected: 05/28/18922 Specimen: Blood Updated: 05/28/18 0939 Sputum culture [[id number]] Collected: 05/27/182014 Specimen: Sputum from Sputum Updated: 05/28/18902 Specimen Description SPUTUM GRAM STAIN LESS THAN 10 WBCS/LPF GRAM STAIN LESS THAN 10 SEC/LPF GRAM STAIN NO ORGANISMS SEEN CULTURE CULTURE IN PROGRESS Hepatitis panel, chronic [[id number]] (Abnormal) Collected: 05/27/181757 Updated: 05/27/182030 Hep A Total Ab REACTIVE (A) HEP B SURFACE AG NON REACTIVE HEP B CORE AB,TOTAL NON REACTIVE HEP B SURFACE ANTIBODY 3.27 (H) IV HEPATITIS C NON REACTIVE HEPATITIS INTERP Current or past HAV infection. Past HBV infection or vaccination. No ser ologic evidence of HCV infection. CBC w/auto diff (reflex to manual) [[id number]] (Abnormal) Collected: 05/27/18424 Specimen: Blood Updated: 05/27/18 [...] K/uL MORPHOLOGY 2+ Platelet Estimate DECREASED Phosphorus [[id number]] (Abnormal) Collected: 05/27/18424 Specimen: Blood Updated: 05/27/18 0629 PHOSPHORUS 8.0 (H) mg/dL Basic Metabolic Panel [[id number]] (Abnormal) Collected: 05/27/18424 Specimen: Blood Updated: 05/27/1829 SODIUM 135 mmol/L POTASSIUM 5.9 (H) mmol/L CHLORIDE 96 (L) mmol/L CO2 25 mmol/L ANION GAP AGAP 20 mmol/L GLUCOSE 74 mg/dL BUN 51 (H) mg/dL CREATININE 9.2 (H) mg/dL BUN/CREAT 6 CALCIUM 9.4 mg/dL EGFR 5 (L) mL/min/1.73m2 Magnesium [[id number]] (Abnormal) Collected: 05/27/18424 Specimen: Blood Updated: 05/27/18 0629 MAGNESIUM 2.7 (H) mg/dL Brain natriuretic peptide [[id number]] (Abnormal) Collected: 05/27/18424 Specimen: Blood Updated: 05/27/18 0546 BRAIN NATRIURETIC PEPTIDE 1,153.92 (H) pg/mL Respiratory Filmarray [[id number]] (Abnormal) Collected: 05/26/181805 Specimen: Nasopharynx/Oropharynx Updated: 05/26/182141 [...] performed by Molecular Methodology MRSA by PCR [[id number]] Collected: 05/26/18 180 Specimen: Nasopharyngeal from Nares(Nose) Updated: 05/26/182025 SOURCE NARES(NOSE) MRSA PCR NEGATIVE Procalcitonin [[id number]] (Abnormal) Collected: 05/26/18 1727 Updated: 05/26/18 1839 PROCALCITONIN 0.76 (H) ng/mL Albumin, Body Fluid [[id number]] Collected: 05/26/18 1412 Specimen: Body Fluid from Lung, Right Lower Lobe Updated: 05/26/18 1729 FLUID ALBUMIN 2.3 g/dL Total Protein, Body Fluid [[id number]] Collected: 05/26/18 1412 Specimen: Body Fluid from Lung, Right Lower Lobe Updated: 05/26/18 1729 FLUID TOTAL PROTEIN 4.2 g/dL FLUID TP SOURCE PLEURAL FLUID Cell count, Body Fluid [[id number]] Collected: 05/26/18 141 Specimen: Body Fluid from Lung, Right Lower Lobe Updated: 05/26/18 1708 FLUID TYPE PLEURAL FLUID COLOR SAMMIE APPEARANCE CLOUDY RBC'S 3,000 /mm3 TOTAL NUCLEATED CELLS 253 /mm3 NEUTROPHILS 22 % LYMPHOCYTES 8 % MONOCYTES/MACROPHAGES 65 % Mesothelial Cells 5 % CELLS COUNTED 100 pH, Body Fluid [[id number]] Collected: 05/26/18 1412 Specimen: Body Fluid from Lung, Right Lower Lobe Updated: 05/26/18 1508 FLUID PH 7.45 Procalcitonin [[id number]] (Abnormal) Collected: 05/26/18 1214 Updated: 05/26/18 1330 PROCALCITONIN 0.56 (H) ng/mL Cardiac Panel [[id number]] (Abnormal) Collected: 05/26/18 1214 Updated: 05/26/18 1312 [...] ng/mL CK-MB Index 2.7 Brain natriuretic peptide [[id number]] (Abnormal) Collected: 05/26/18 1214 Updated: 05/26/18 1254 [...] radiologist report and is used for image Codesion Echo Cardiac Adult Complete Result Date: 05/27/2018 [...] 17. The mitral valve is normal. 18. Yeaa-tf-dwkvgtos eccentric mitral regurgitation i s present. 19. [...] mitral valve is normal. Mitral Kait ve: Qvjp-ze-yzggocoh eccentric mitral regurgitation is present. Tricuspid Valve: [...] maxP.08 mmHg TR Vmax: 2.7 4 m/s Fur Comber: MOO Authenticated by: Robel Yusuf MD Report [...] 17. The mitral valve is normal. 18. Cqjh-lv-aoitl ate eccentric mitral regurgitation is present. 19. [...] 05/28/1808 Date of Service: 05/28/18703 Status: Signed Director Pharmacovigilance: Timothy Butler RN (Registered Nurse) Pt A&Ox4 [...] 05/27/181957 Date of Service: 05/27/181954 Status: Signed Director Pharmacovigilance: Vernell Weston RN (Registered Nurse) Called into [...] 05/27/181924 Date of Service: 05/27/181922 Status: Signed Director Pharmacovigilance: Saundra Hartley RN (Registered Nurse) Pt has [...] Author: DORON Ashby Service: (none) Author Type: Rock Crusher Operator Filed: 05/27/181533 Date of Service: 05/27/181529 Status: Signed Director Pharmacovigilance: DORON Ashby (Rock Crusher Operator) 05/27/181529 Discharge Planning Evaluation Admitting Diagnosis SOB [...] Patient/Family concerns No Met with Dara Louise ([phone]) and discussed discharge planning. Pt is a 23 y.o., female who resides alone in [place], [place]. Pt states that she has supportive family and frie nds. Pt's mother lives 50 miles away; pt's sister lives 15 minutes away. Pt is independent and does not have a caregiver. Patient's PCP is: TIEN NICHOLSON Patient's insurance: Medicare and Medicaid Coverage concerns: None Medication coverage/concerns: None Community resources utilized / needed: Pt does outpatient dialysis at [place] in [facility] on Monday, Monday and Monday Assistance [...] Service: Hospitalist Author Type: Physician Filed: 05/27/18 1556 Date of Service: 05/27/18 1325 Status: Signed Director Pharmacovigilance: Anthony Figureoa MD (Physician) Hospitalist Progress Note Dara Lundberg Shiraz 23 y.o. [id number] female [facility] Day: LOS: 1 day Patient Summary: 23-year-old female with past medical history of end-stage renal dis ease on hemodialysis Monday, hypertension, anemia of chronic disease who we nt to [facility] with increasing shortness of breath found to have right pleural e ffusion who was transferred to [facility] underwent right-sided diagnostic and therapeu tic [...] Date/Time CBC w/auto diff (reflex to manual) [[id number]] (Abnormal) Collected: 05/27/18424 Specimen: Blood Updated: 05/27/18710 [...] K/uL MORPHOLOGY 2+ Platelet Estimate DECREASED Phosphorus [[id number]] (Abnormal) Collected: 05/27/18424 Specimen: Blood Updated: 05/27/18628 PHOSPHORUS 8.0 (H) mg/dL Basic Metabolic Panel [[id number]] (Abnormal) Collected: 05/27/18424 Specimen: Blood Updated: 05/27/18628 SODIUM 135 mmol/L POTASSIUM 5.9 (H) mmol/L CHLORIDE 96 (L) mmol/L CO2 25 mmol/L ANION GAP AGAP 20 mmol/L GLUCOSE 74 mg/dL BUN 51 (H) mg/dL CREATININE 9.2 (H) mg/dL BUN/CREAT 6 CALCIUM 9.4 mg/dL EGFR 5 (L) mL/min/1.73m2 Magnesium [[id number]] (Abnormal) Collected: 05/27/18424 Specimen: Blood Updated: 05/27/18 0629 MAGNESIUM 2.7 (H) mg/dL Brain natriuretic peptide [[id number]] (Abnormal) Collected: 05/27/18424 Specimen: Blood Updated: 05/27/18 0546 BRAIN NATRIURETIC PEPTIDE 1,153.92 (H) pg/mL Respiratory Filmarray [[id number]] (Abnormal) Collected: 05/26/181805 Specimen: Nasopharynx/Oropharynx Updated: 05/26/182141 [...] performed by Molecular Methodology MRSA by PCR [[id number]] Collected: 05/26/181805 Specimen: Nasopharyngeal from Nares(Nose) Updated: 05/26/182025 SOURCE NARES(NOSE) MRSA PCR NEGATIVE Procalcitonin [[id number]] (Abnormal) Collected: 05/26/18 1727 Updated: 05/26/18 183 PROCALCITONIN 0.76 (H) ng/mL Culture, Body Fluid [[id number]] Collected: 05/26/18 141 Specimen: Body Fluid from Pleural Fluid Updated: 05/26/18 181 Pathologist consult [[id number]] Collected: 05/26/181411 Updated: 05/26/18 174 Albumin, Body Fluid [[id number]] Collected: 05/26/181411 Specimen: Body Fluid from Lung, Right Lower Lobe Updated: 05/26/18 172 FLUID ALBUMIN 2.3 g/dL Total Protein, Body Fluid [[id number]] Collected: 05/26/18 1412 Specimen: Body Fluid from Lung, Right Lower Lobe Updated: 05/26/18 1729 FLUID TOTAL PROTEIN 4.2 g/dL FLUID TP SOURCE PLEURAL FLUID Cell count, Body Fluid [[id number]] Collected: 05/26/18 1412 Specimen: Body Fluid from Lung, Right Lower Lobe Updated: 05/26/18 1708 FLUID TYPE PLEURAL FLUID COLOR SAMMIE APPEARANCE CLOUDY RBC'S 3,000 /mm3 TOTAL NUCLEATED CELLS 253 /mm3 NEUTROPHILS 22 % LYMPHOCYTES 8 % MONOCYTES/MACROPHAGES 65 % Mesothelial Cells 5 % CELLS COUNTED 100 Culture, Body Fluid [[id number]] Collected: 05/26/18 1513 Specimen: Other from Ascites Fluid Updated: 05/26/18 1631 Specimen Description ASCITES FLUID GRAM STAIN STAIN PERFORMED ON CYTOSPIN GRAM STAIN WBC'S SEEN GRAM STAIN NO EPITHELIAL CELLS SEEN GRAM STAIN NO ORGANISMS SEEN CULTURE PENDING pH, Body Fluid [[id number]] Collected: 05/26/18 141 Specimen: Body Fluid from Lung, Right Lower Lobe Updated: 05/26/18 1508 FLUID PH 7.45 Procalcitonin [[id number]] (Abnormal) Collected: 05/26/18 1214 Updated: 05/26/18 1330 PROCALCITONIN 0.56 (H) ng/mL Cardiac Panel [[id number]] (Abnormal) Collected: 05/26/18 1214 Updated: 05/26/18 1312 [...] ng/mL CK-MB Index 2.7 Brain natriuretic peptide [[id number]] (Abnormal) Collected: 05/26/18 1214 Updated: 05/26/18 1254 [...] radiologist report and is used for image [employer] only PROBLEM LIST Active Problems: ESRD on [...] 05/27/18546 Date of Service: 05/27/18543 Status: Signed Director Pharmacovigilance: Vernell Weston RN (Registered Nurse) End of [...] 05/26/181950 Date of Service: 05/26/181947 Status: Signed Director Pharmacovigilance: Saundra Hartley, RN (Registered Nurse) Pt complained [...] 05/26/181804 Date of Service: 05/26/181804 Status: Signed Director Pharmacovigilance: Jae Gutierres RPH (Pharmacist) Renal Dosing Monitoring: [...] E | | | | | | [place] [address] | | | | | | [phone] | | | | | | | [...] | | | | | | at [facility], [address] | | | | | | [employer], | | | | | | [place] [address] | | | | | |Testing performed at [facility], [address] [place] [address] | | | | | | | [...] | | | | | performed at [facility], [address] | | | | | | [facility], | | | | | | [place] [address] | | | | + + + [...] | | | | | | at [facility], [address] | | | | | | [employer], | | | | | | [place] [address] | | | | | |Testing performed at [facility], [address] [facility] [place] [address] | | | | | | | [...] | | | | | performed at [facility], [address] | | | | | | [facility] [place], | | | | | | [place] [address] | | | | + + + [...] W | | | | | | [facility], | | | | | | [place] [address] | | | | | |Testing performed at [facility], [address] [facility], [place] [address] | | | | | | | [...] | | | | | performed at [facility], [address] | | | | | | [place], | | | | | | [place] [address] | | | | + + + [...] disease. | | | Signed by: MD Currie Chet Sign Date/Time: 05/29/2018 2:32 PM | | [...] | EXTERNAL LAB | | not a six pack packer validated sample type for this method. No reference | | | ranges have been established. Testing performed at [facility], [address] | | | [place] [address] | | + + + + +---------+ [...] EXTERNAL LAB | | is not a six pack packer validated sample type for this method. No | | | reference ranges have been established. Testing performed at [facility], | | | [address] [place] [address] | | + + + + +---------+ [...] | | | Patient | performed at [facility];[address] | | LAB | | | | [address] [facility];[place], [place] | | | | | | [address] | | | | + + + [...] | | | | performed at [facility] | | | | | | [facility];[place], [place] | | | | | | [address] | | | | + + + [...] | | | | | | at [facility], [address] | | | | | | [facility], | | | | | | [place] [address] | | | | | |Testing performed at [facility], [address] [place] [address] | | | | | | | [...] | | | | | performed at [facility], [address] | | | | | | [facility], | | | | | | [place] [address] | | | | + + + [...] | | | | | | [facility];[address] [place] [address] | | | | | | [facility];[place] [address] | | | | + + + [...] at | | | | | | [facility], [address] [place] [address] | | | | | | [place] | | | | | | [address] | | | | + + + [...] | | | | | performed at [facility], [address] | | | | | | [facility], | | | | | | [place] [address] | | | | + + + [...] | | | | performed at [facility] | | | | | | [facility];[place], [place] | | | | | | [address] | | | | + + + [...] | | | | | | [facility];[address] [place] [address] | | | | | | [facility];[place] [address] | | | | + + + [...] | | | | | [place] [address] | | | | + + + [...] | | | | | | at [facility], [address] | | | | | | [facility], | | | | | | [place] [address] | | | | | |Testing performed at [facility], [address] [place] [address] | | | | | | | [...] EXTERNAL | | | | performed at [facility], [address] | | LAB | | | | [place], | | | | | | [place] [address] | | | | + + + [...] | | | QUALITATIVE | performed at [facility], [address] | | LAB | | | | [address], | | | | | | [place] [address] | | | | + + + [...] | performed at [facility], [address] | uIU/mL | LAB | | | | [place], | | | | | | [place] [address] | | | | + + + [...] | | | | | performed at [facility], [address] | | | | | | [facility], | | | | | | [place] [address] | | | | + + + [...] | | | preparation was performed by [facility], [address] [place] [address] | | | [place] [address] (Weatherization Specialist: Matt Claudio D.O.; | | | CLIA#: [id number]). Professional interpretation was performed by | | | [facility], [address], | | | [place] [address] (Weatherization Specialist: Daniel Larson M.D.; | | | CLIA#: [id number]).6 Diagnostician: Marie BROOKS ([facility]) | | | Senior Javascript Developer Diagnostician: Anahy Da Silva MD Pathologist | [...] at | | | | | | [facility], [address] [facility] | | | | | | [place] | | | | | | [address] | | | | + + + [...] valve is normal. 18. | | | Itqj-ir-fqniqdez eccentric mitral regurgitation is present. 19. | [...] valve is normal. 18. | | | Xsxi-ju-qranbuxd eccentric mitral regurgitation is present. 19. | [...] is | | | normal. Mitral Valve: Lmwh-ar-kotpxcfo eccentric mitral regurgitation | | | is [...] TR Vmax: 2.74 m/s | | | Fur Comber: MW Authenticated by: Robel Yusuf MD Report [...] aortic stenosis.17. The mitral valve is normal.18. Nbsn-zg-ggsltrdk | | eccentric mitral regurgitation is present.19. [...] | | arch are normal.26. No mass ibgvhorgez76. No clot visualized FINDINGS--------ECG | | rhythm: [...] mitral valve is normal.Mitral Valve: | | Idzz-sa-vnmawiqn eccentric mitral regurgitation is present.Tricuspid Valve: Severe [...] mlLAESV Index (A-L): 30.43 ml/m2LAAs A2C: 20.97 [id number] | | A-L A2C: 65.71 mlLALs A2C: 5.68 cmLAAs A4C: 19.94 [id number] A-L A4C: 60.20 mlLALs | | A4C: 5.60 cmTAPSE: 1.58 cmHR: 79.62 BPMAV maxP.06 mmHgAV meanP.71 | | mmHgAV Vmax: 1.23 m/Elizabeth Vmean: 0.92 m/Elizabeth VTI: 20.07 cmAVA Vmax: 1.74 cm2AVA | | (VTI): 1.93 gr1SPAI Vmax: 0.00 cm2/m2AVAI (VTI): 0.00 cm2/m2LVOT maxP.22 [...] maxP.08 | | mmHgTR Vmax: 2.74 m/s Fur Comber: MWSydneehenticated by: Robel Palacios | | Date/Time: 05-27-2018 [...] The mitral valve is | | normal.18. Prlk-zz-scpgdywx eccentric mitral regurgitation is present.19. Severe | [...] and aortic arch are normal.26. No mass fyaykdulxp85. No clot visualized | |LVPWd: 1.27 cm [...] |TR Vmax: 2.74 m/s | | | |Fur Comber: MW | |Authenticated by: Robel Yusuf MD [...] The mitral valve is normal. | |18. Feeb-ho-expuqchh eccentric mitral regurgitation is present. | |19. [...] + + | Cedric, Sonido Conversion - 10/16/2018 9:43 PM PDT CHEST [...] | LAB | | | | [facility];[address] [place] [address] | | | | | | Blvd;[place] [address] | | | | + + + [...] | | | | | [place] [address] | | | | + + + [...] | LAB | | | | [facility];[address] [facility] | | | | | | [facility];[place] [address] | | | | + + + [...] EXTERNAL | | | | performed at [facility], [address] | | LAB | | | | [place] [place], | | | | | | [place] [address] | | | | + + + [...] | | | | | performed at [facility], [address] | | | | | | [facility], | | | | | | [place] [address] | | | | + + + [...] Methodology | | | Testing performed at [facility], [address] [place] [address] | | | [address] | | + + + + +---------+ [...] NEGATIVE Testing | | | performed at [facility];[address] [place] [address];[place] [address] | | + + + + +---------+ [...] | | | | | at [facility];[address] | | | | | | [facility];[place] [address] | | | | + + + [...] + + | Cedric, Sonido Conversion - 10/16/2018 9:[address] [...] AT 1702: | | | PREVIOUSLY REPORTED <[id number] TOTAL NUCLEATED CELLS | | | 253 CORRECTED RESULTS CALLED TO DR. GLASS IN ED AT | | | 1705 BY LGJ CORRECTED ON 05/26 AT 1702: PREVIOUSLY REPORTED 374 | | | NEUTROPHILS 22 | | | LYMPHOCYTES 8 | | | MONOCYTES/MACROPHAGES 65 Mesothelial | | | Cells 5 CELLS COUNTED | | | 100 Testing performed at [facility];[address] | | | [address] [facility];[place] [address] | | + + + + +---------+ [...] | EXTERNAL LAB | | not a six pack packer validated sample type for this method. No reference | | | ranges have been established. Testing performed at [facility], [address] | | | [place] [address] FLUID TP SOURCE | | | PLEURAL FLUID Testing performed at [facility];[address] | | | [place] [address] | | + + + + +---------+ [...] | EXTERNAL LAB | | not a six pack packer validated sample type for this method. No | | | reference ranges have been established. Testing performed at [facility], | | | [address] [place] [address] | | + + + + +---------+ [...] EXTERNAL LAB | | Testing performed at [facility];[address] [facility];[place] [address] | | + + + + +---------+ [...] | | | | | at [facility];[address] [place] [address] | | | | | | [facility];[place] [address] | | | | + + + [...] | | | | | at [facility];[address] [place] [address] | | | | | | [facility];[place] [address] | | | | + + + [...] | LAB | | | | [facility];[address] [place] [address] | | | | | | [facility];[place] [address] | | | | + + + [...]
--- OUTSIDE RECORDS SUMMARY | ~2019-02-17 | XMS | Encounter Summary ---
Demographics + + + | Address | [address] | | | [place] [address] | + + + | Home Phone [...] | | | | | [place] [address] | | + + + + + | Thania Mallory | ECON | [address] | | | | | [place] [address] | | + + + + + | Deidra Weldon | ECON | [address] | | | | | [place] | | | | | [address] | | + + + + + Care Team Providers + +------+ + | Care Welt Butter Hand Name | Role | Phone | [...] Visit | Services Inpatient | [address] | disease, stage V | | | | [address] | [facility] | (HCC) (Primary Dx) | | | | [address] | [place], [place] | | | | | Mailcode: [id number] | [address] | | | | | [place], [place] | [phone] | | | | | [address] | | | | | | [phone] | | | +--------+---------+ + + + [...] a nutrition perspective. Argentina Mehta, MS, RD, ELECTRONIC EQUIPMENT INSTALLER, LD documented in this e ncounter Plan of Treatment +--------+ + + + + | Date | Type | Specialty | Care Team | Description | +--------+ + + + + | 05/04/ | Hospital | Adult Acute Care | El Starr MD | | | 2022 | Encounter | | [address] | | | | | | [place], [place] | | | | | | [address] | | | | | | [phone] | | | | | | | | +--------+ + + + + documented as of this encounter Procedures + +--------+ + + + | Procedure Name | Priori | Date/Time | Associated Diagnosis | Comments | | | ty | | | | + +--------+ + + + | NE MNT INITIAL | Routin | 12/21/2012 | [...]
--- OUTSIDE RECORDS SUMMARY | ~2019-02-17 | XMS | Encounter Summary ---
Demographics + + + | Address | [address] | | | [place] [address] | + + + | Home Phone [...] | | | | | [place] [address] | | + + + + + | Thania Mallory | ECON | [address] | | | | | [place] [address] | | + + + + + | Deidra Weldon | ECON | [address] | | | | | [place] | | | | | [address] | | + + + + + Care Team Providers + +------+ + | Care Patient Observer Name | Role | Phone | [...] | | | | | Caro [place], | | | | | | [place] [address] | | | +--------+ + + + [...] Denise | | | | | | [place], [place] | | | | | | [address] | | | | | | [phone] | | | | | | | [...] DANILO - | [address] | [place] [address] | | | IMMUNOGENETICS/TRANS | [address] | | | | [facility] | | | | + + + + + documented in this encounter Visit Diagnoses + + | Diagnosis | + + | End stage renal disease (HCC) End stage renal disease | + + documented in this encounter"
--- OUTSIDE RECORDS SUMMARY | ~2019-02-17 | XMS | Encounter Summary ---
Demographics + + + | Address | [address] | | | [place] [address] | + + + | Home Phone [...] + | Author | [facility] | | | and Josephana | + + + | Organization | [facility] | [...] Team Providers + +------+ + | Care Learning Specialist Name | Role | Phone | [...] | NEPHROLOGY [address] | | | | | [address] | [address] [place] | | | | | [place], [place] | [place] [address] | | | | | [address] | [phone] | | | | | [phone] | | | +--------+ + + + [...] | | | | | [place] [address] | | | | | | [phone] | | | | | | | | +--------+---------+ + + + documented as of this encounter Visit Diagnoses Not on filedocumented in this encounter"
--- OUTSIDE RECORDS SUMMARY | ~2019-02-17 | XMS | Encounter Summary ---
Demographics + + + | Address | [address] | | | [place] [address] | + + + | Home Phone [...] Author | [facility] | | | and Josephana | + + + | Organization | [facility] | [...] Team Providers + +------+ + | Care Electrician Apprentice Powerhouse Name | Role | Phone | + +------+ + PCP | Unavailable | + +------+ + Encounter Details +--------+ + + + + | Date | Type | Department | Care Team | Description | +--------+ + + + + | 10/31/ | Hospital | [facility] | Conversion | ESRD (end stage | | 2015 | Encounter | CENTER CV INTRA OP | Transaction, | renal disease) on | | | | [address] | Provider Unknown | dialysis ([facility]) | | | | [place], [place] | [phone] | | | | | [address] | | | | | | [phone] | Colten Hutchins MD | | | | | | [address] | | | | | | [place], [place] | | | | | | [address] | | | | | | | [...] Note by Bev Carroll RN at 10/31/14 625 Author: Bev Carroll RN Service: Interventional Radiology Author Type: Registered Chantell e Filed: 10/31/14 4452 Date of Service: 10/31/141734 Status: Signed Storage Facility Housekeeper: Bev Carroll RN (Registered Nurse) Sutures removed [...] Note by Bev Carroll RN at 10/31/14 6300 Author: Bev Carroll, RN Service: Interventional Radiology Author Type: Registered Chantell rse Filed: 10/31/141649 Date of Service: 10/31/141649 Status: Signed Storage Facility Housekeeper: Bev Carroll RN (Registered Nurse) Attempted removal [...] [address] | | | | | | [place] [address] | | | | | | [phone] | | | | | | | [...] | | yesterday COMPARISON STUDIES: 10/28/2014 PRIMARY TOOL MAKER APPRENTICE: | | | Colten Hutchins MD, PhD, [facility] OPERATIONS: 1. Ultrasound-guided | | [...] | microsheath were both exchanged for 6 Moroccan sheaths. A catheter was | | | [...] yesterday | | COMPARISON STUDIES: 10/28/2014 PRIMARY TOOL MAKER APPRENTICE: Colten Hutchins MD, PhD, RPVI | | [...] were both exchanged for 6 | | Moroccan sheaths. A catheter was advanced over a [...] | | yesterday COMPARISON STUDIES: 10/28/2014 PRIMARY TOOL MAKER APPRENTICE: | | | Colten Hutchins MD, PhD, [facility] OPERATIONS: 1. Ultrasound-guided | | [...] | microsheath were both exchanged for 6 Moroccan sheaths. A catheter was | | | [...] yesterday | | COMPARISON STUDIES: 10/28/2014 PRIMARY TOOL MAKER APPRENTICE: Colten Hutchins MD, PhD, RPVI | | [...] were both exchanged for 6 | | Moroccan sheaths. A catheter was advanced over a [...] | | yesterday COMPARISON STUDIES: 10/28/2014 PRIMARY TOOL MAKER APPRENTICE: | | | Colten Hutchins MD, PhD, [facility] OPERATIONS: 1. Ultrasound-guided | | [...] | microsheath were both exchanged for 6 Moroccan sheaths. A catheter was | | | [...] yesterday | | COMPARISON STUDIES: 10/28/2014 PRIMARY TOOL MAKER APPRENTICE: Colten Hutchins MD, PhD, RPVI | | [...] were both exchanged for 6 | | Moroccan sheaths. A catheter was advanced over a [...] | | yesterday COMPARISON STUDIES: 10/28/2014 PRIMARY TOOL MAKER APPRENTICE: | | | Colten Hutchins MD, PhD, [facility] OPERATIONS: 1. Ultrasound-guided | | [...] | microsheath were both exchanged for 6 Moroccan sheaths. A catheter was | | | [...] yesterday | | COMPARISON STUDIES: 10/28/2014 PRIMARY TOOL MAKER APPRENTICE: Colten Hutchins MD, PhD, RPVI | | [...] were both exchanged for 6 | | Moroccan sheaths. A catheter was advanced over a [...]
--- OUTSIDE RECORDS SUMMARY | ~2019-02-17 | XMS | Encounter Summary ---
Demographics + + + | Address | [address] | | | [place] [address] | + + + | Home Phone | | + + + | Preferred Language | Unknown | + + + | Marital Status | Single | + + + | Lutheran Affiliation | Unknown | + + + | Race | Unknown | + + + | Ethnic Group | Unknown | + + + Author + + + | Author | [facility] | | | and Josephana | + + + | Organization | [facility] [...] Team Providers + +------+ + | Care Funding Coordinator Name | Role | Phone | + +------+ + PCP | Unavailable | + +------+ + Encounter Details +--------+ + + + + | Date | Type | Department | Care Team | Description | +--------+ + + + + | 05/29/ | Hospital | [facility] | Conversion | End stage renal | | 2014 | Encounter | CENTER IR INTRA OP | Transaction, | disease (HCC) | | | | [address] | Provider Unknown | | | | | [place], [place] | | | | | | [address] | (Fax) | | | | | [phone] | | | +--------+ + + + [...] as of this encounter Progress Notes Anderson eMraz, Provider Unknown - 05/29/2014 4:49 PM PDTFormatting of this note m ight be different from the original. Nurse Progress Note by Mesha Clark RN at 05/29/141648 Author: Mesha Clark RN Service: (none) Author Type: Registered Nurse Filed: 05/29/141653 Date of Service: 05/29/141648 Status: Signed Sanitary Chemist: Mesha Clark RN (Registered Nurse) Discharge criteria [...] E | | | | | | [place] [address] | | | | | | [phone] | | | | | | | [...] Successful | | | placement of a 14.5-Montenegrin dual-lumen 19-cm tunneled hemodialysis | | | catheter with its tip in the upper portion of the right atrium without | | | incidence. 15958, 80877, 17932, 30962-65 Electronically | | | signed by Darryn [...] jugular vein. 3. Placement of 19 cm, 14.5-Montenegrin | | | dual-lumen tunneled palindrome hemodialysis [...] conscious sedation and | | | independent detention supervision of the conscious sedation was | [...] records. 3. Upper chest radiograph shows dual-lumen, 14.5-Montenegrin, | | | 19-cm, tunneled dialysis catheter [...] | micropuncture needle and exchanged for a 4-Montenegrin micropuncture sheath | | | over a 0.018 wire. Skin in the infraclavicular region was | | | infiltrated with 1% lidocaine and a 5-mm skin incision was made. A | | | 14.5-Montenegrin, dual-lumen, 19-cm tunneled hemodialysis catheter was | | | placed a subcutaneous tunnel using a metallic tunneler. The 4-Montenegrin | | | sheath was exchanged for a 0.035, 3-mm J-wire with its tip in the | | | right atrium under fluoroscopy guidance. The skin and subcutaneous | | | tract was dilated using at 12 and 14-Montenegrin facial dilators. A | | | 15-Montenegrin peel-away sheath was placed over the wire [...] vein.3. Placement of 19 | | cm, 14.5-Montenegrin dual-lumen tunneled palindrome hemodialysis catheter in the [...] maintenance of adequate conscious sedation and independent detention | | supervision of the conscious sedation [...] Upper chest radiograph shows dual-lumen, | | 14.5-Montenegrin, 19-cm, tunneled dialysis catheter with its tip [...] needle and exchanged for | | a 4-Montenegrin micropuncture sheath over a 0.018 wire. Skin in the infraclavicular region | | was infiltrated with 1% lidocaine and a 5-mm skin incision was made. A 14.5-Montenegrin, | | dual-lumen, 19-cm tunneled hemodialysis catheter was placed a subcutaneous tunnel using | | a metallic tunneler. The 4-Montenegrin sheath was exchanged for a 0.035, 3-mm J-wire with | | its tip in the right atrium under fluoroscopy guidance. The skin and subcutaneous tract | | was dilated using at 12 and 14-Montenegrin facial dilators. A 15-Montenegrin peel-away sheath | | was placed over [...] veins.2. Successful placement | | of a 14.5-Montenegrin dual-lumen 19-cm tunneled hemodialysis catheter with its tip in the | | upper portion of the right atrium without incidence. 94630, 60993, 03641, 34028-65 | | | |2. Successful placement of a 14.5-Montenegrin dual-lumen 19-cm tunneled hemodialysis catheter w ith its tip in the upper portion of the right atrium without incidence. | | | |09406, 41097, 32937, 05949-90 | | | | | + + documented in this encounter Visit Diagnoses + + | Diagnosis | + + | End stage renal disease (HCC) End stage renal disease | + + documented in this encounter"
--- OUTSIDE RECORDS SUMMARY | ~2019-02-17 | XMS | Encounter Summary ---
Demographics + + + | Address | [address] | | | [place] [address] | + + + | Home Phone [...] | Author | [facility] | | | and Josephana | + + + | Organization | [facility] | [...] | + + +---------+ + | Saundra Malolry | ECON | Unknown | | + + +---------+ + Care Team Providers + +------+ + | Care Registered Public Health Nurse Name | Role | Phone | [...] | NEPHROLOGY [address] | [address] | | | | | [address] | [address] [place] | | | | | [place], [place] | [place] [address] | | | | | [address] | [phone] | | | | | [phone] | | | +--------+--------+ + + + [...] | | | | | [place] [address] | | | | | | [phone] | | | | | | | | +--------+---------+ + + + documented as of this encounter Visit Diagnoses Not on filedocumented in this encounter"
--- OUTSIDE RECORDS SUMMARY | ~2019-02-17 | XMS | Clinical Summary ---
Demographics + + + | Address | [address] | | | [place] [address] | + + + | Home Phone [...] + | Author | [facility] (Historical as of | | | 10-20-18) | + + + | Organization | [facility] (Historical as of | | | 10-20-18) [...] Providers + +------+ + | Care Manager Athletics Name | Role | Phone | + [...] | Left: | SYNOVIS | | | [id number] | | 0.8x8cm - [id number]: | | Arm | | | | [...] | | | COVIDIEN | | | [id number] | | 23cmExplanted: Qty: 1 on | | | | | | 3404 / | | 04/08/2014 | | | | | | | | | | | | | | /[id number] | | | | | | | [...] +------+-------+ + | MEDICARE | MEDICA | [id number] | | | [address] | | | RE | | | | [place], [place] [address] | | | IP-OP | | | | | + +--------+ +------+-------+ + | MEDICAID | [place] | [id number] | | | [address] | | | N | | | | [place] | | | [place] | | | | [address] | | | SHOW HOST/HOSTESS | | | | | + +--------+ [...] | kamron | | | 1423 | [address] | + +--------+ +--------+ + +
--- OUTSIDE RECORDS SUMMARY | ~2019-02-17 | XMS | Encounter Summary ---
Demographics + + + | Address | [address] | | | [place] [address] | + + + | Home Phone [...] | | | | | [place] [address] | | + + + + + | Thania Mallory | ECON | [address] | | | | | [place] [address] | | + + + + + | Deidra Weldon | ECON | [address] | | | | | [place] | | | | | [address] | | + + + + + Care Team Providers + +------+ + | Care Lna Name | Role | Phone | + [...] Shun | | | | | at [facility] | [facility] | | | | | [address] | [place] [address] | | | | | Loop Mailcode: | | | | | | [id number] [facility] | | | | | | [facility] | | | | | | [place], [place] | | | | | | [address] | | | | | | [phone] | | | +--------+ + + + [...] [place] | | | | | | [address] | | | | | | [phone] | | | | | | | [...] | e | 11:49 AM | MEDICARE 2325 | procedure are in the | | [...] view image for the detailed interpretation from [facility] results. | CARDIOLOGY | + + + + + | Procedure Note | + + | Interface, Cardiology Results - 12/21/2012 9:38 AM PDT Please click on view image | | for the detailed interpretation from [facility] results. 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
--- OUTSIDE RECORDS SUMMARY | ~2019-02-17 | XMS | Encounter Summary ---
Demographics + + + | Address | [address] | | | [place] [address] | + + + | Home Phone [...] | | | | | [place] [address] | | + + + + + | Thania Mallory | ECON | [address] | | | | | [place] [address] | | + + + + + | Deidra Weldon | ECON | [address] | | | | | [place] | | | | | [address] | | + + + + + Care Team Providers + +------+ + | Care Front Desk Assistant Name | Role | Phone | + +------+ + | Jonathan Alonso MD | PCP | | + +------+ + Encounter Details +--------+------+ + + + | Date | Type | Department | Care Team | Description | +--------+------+ + + + | 01/20/ | Lab | [facility] | | 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 [address] | | MEDICARE 3788; [facility] | | | | [address] [place], | | ([place] | | | | [place] [address]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; | | | | [phone] | | Hemodialysis status | | | [...] Denise | | | | | | [place], [place] | | | | | | [address] | | | | | | [phone] | | | | | | | [...] | e | 9:59 AM | MEDICARE 6606 [facility] | procedure are in the | [...] the | | | | PST | ([facility] | results section. | | | [...] the | | | | PST | ([facility] | results section. | | | [...] the | | | | PST | ([facility] | results section. | | | | [...] | | | | PST | ([facility] | results section. | | | [...] the | | | | PST | ([facility] | results section. | | | | [...] the | | | | PST | ([facility] | results section. | | | | [...] the | | | | PST | ([facility] | results section. | | | | [...] the | | | | PST | ([facility] | results section. | | | | [...] the | | | | PST | ([facility] | results section. | | | [...] the | | | | PST | ([facility] | results section. | | | [...] | + + + + + | [place] [facility] - | [address] | [place] [address] | | | [place] | | | | + + + [...] [facility] | [address] | [place] [address] | | | SERVICES, CORE | PARK [...] [facility] | [address] | [place] [address] | | | SERVICES, SPECIAL | PARK [...] + + | [facility] | [address] | [place] [address] | | | DIAGNOSTIC | [address] [...] + | [place] [facility] - | [address] | [place], [place] [address] | | | [place] | | | | + + + [...] + | [facility] [facility] - | [address] | [place] [address] | | | [place] | | | | + + + [...] + + + + | [facility] | [address] | [place] [address] | | | [place] | | | [...] + | [facility] - | [address] | [place] [address] | | | [place] | | | [...] by | | | | | | [employer],[address] | | | | | | [address] [place], [facility],[place] | | | | | | [address] | | | | | | [phone].[employer]. | | | | | | Faisal mantilla, | | | | | | Jenny ALMEIDA. Director | | | | + + + + + + + + | Specimen | + + | Blood - Blood | + + + + + + + | Performing | Address | City/State/[facility] Cent[facility]ode | Phone Number | | Organization | | | | + + + + + | [facility] | [address] | [place], [place] | | | UN[facility] P[facility] | | [address] | | + + + + [...] + + | [facility] - | [address] | [place] [address] | | | [place] | | | | + + + [...] by | | | | | | [facility],[address] | | | | | | [place] | | | | | | [address] | | | | | | [phone].[employer], [employer]Clab. | | | | | | Faisal [...] [facility] | [address] | [place], [place] | | | UN[facility] | | [address] | | + + + + + [...] [facility] | [address] | [place] [address] | | | SERVICES, CORE | PARK [...] | + + + + + | [facility] | [address] | [place] [address] | | | SERVICES, CORE | LONG [...] [facility] | [address] | [place] [address] | | | SERVICES, CORE | PARK [...] [facility] | [address] | [place] [address] | | | SERVICES, CORE | PARK [...] | + + + + + | [facility] | [address] | [place] [address] | | | SERVICES, HOMERO | LONG [...] | | | LABORATORY | | | AN[place]AN | | | SERVICES, | | | [...] [facility] | [address] | [place] [address] | | | SERVICES, CORE | PARK [...]
--- OUTSIDE RECORDS SUMMARY | ~2019-02-17 | XMS | Encounter Summary ---
Demographics + + + | Address | [address] | | | [place] [address] | + + + | Home Phone [...] Author | [facility] | | | and Josephana | + + + | Organization | [facility] | [...] Providers + +------+ + | Care Mortar Worker Name | Role | Phone | [...] NEPHROLOGY [address] | M, DO [address] | | | | | [address] | [place] | | | | | [place], [place] | [place], [place] | | | | | [address] | [address] | | | | | [phone] | | | +--------+ + + + [...] contact with the dialysis staff in clinical material handler on a frequent basis. Outpatient Prescriptions Marked [...] will be rechecked in 2 weeks. : Whitehouse Fina documented in thi s encounter Plan [...] [address] | | | | | | [place] [address] | | | | | | [phone] | | | | | | | | +--------+---------+ + + + documented as of this encounter Visit Diagnoses + + | Diagnosis | + + | ESRD (end stage renal disease) (HCC) - Primary End stage renal disease | + + documented in this encounter"
--- OUTSIDE RECORDS SUMMARY | ~2019-02-17 | XMS | Encounter Summary ---
Demographics + + + | Address | [address] | | | [place] [address] | + + + | Home Phone [...] | | | | | [place] [address] | | + + + + + | Thania Mallory | ECON | [address] | | | | | [place] [address] | | + + + + + | Deidra Weldon | ECON | [address] | | | | | [place] | | | | | [address] | | + + + + + Care Team Providers + +------+ + | Care Pharmacy Teacher Name | Role | Phone | [...] to change | | | | Rd [place], [place] | [place], [place] | clinic appt) | | | | [address] | [address] | | | | | [phone] | | | +--------+ + + + [...] [place] | | | | | | [address] | | | | | | [phone] | | | | | | | | +--------+ + + + + documented as of this encounter Visit Diagnoses Not on filedocumented in this encounter"
--- OUTSIDE RECORDS SUMMARY | ~2019-02-17 | XMS | Encounter Summary ---
Demographics + + + | Address | [address] | | | [place] [address] | + + + | Home Phone [...] | | | | | [place] [address] | | + + + + + | Thania Mallory | ECON | [address] | | | | | [place] [address] | | + + + + + | Deidra Weldon | ECON | [address] | | | | | [place] | | | | | [address] | | + + + + + Care Team Providers + +------+ + | Care Wood Grainer Name | Role | Phone | + [...] | | | | | [address] [facility] | [place] [address] | | | | | [place], [place] | [place], [place] | | | | | [address] | [address] | | | | | [phone] | | | | | | | [...] [place] | | | | | | [address] | | | | | | [phone] | | | | | | | | +--------+ + + + + documented as of this encounter Visit Diagnoses Not on filedocumented in this encounter"
--- OUTSIDE RECORDS SUMMARY | ~2019-02-17 | XMS | Encounter Summary ---
Demographics + + + | Address | [address] | | | [place] [address] | + + + | Home Phone [...] | Author | [facility] | | | and Josephana | + + + | Organization | [facility] | | | [...] Providers + +------+ + | Care Principal Consulting Engineer Name | Role | Phone | [...] [place] | | | | | | [address] | | | | | | [phone] | | | +--------+ + + + [...] [address] | | | | | | [place] [address] | | | | | | [phone] | | | | | | | | +--------+---------+ + + + documented as of this encounter Visit Diagnoses Not on filedocumented in this encounter"
--- OUTSIDE RECORDS SUMMARY | ~2019-02-17 | XMS | Encounter Summary ---
Demographics + + + | Address | [address] | | | [place] [address] | + + + | Home Phone [...] | | | | | [place] [address] | | + + + + + | Thania Mallory | ECON | [address] | | | | | [place] [address] | | + + + + + | Deidra Weldon | ECON | [address] | | | | | [place] | | | | | [address] | | + + + + + Care Team Providers + +------+ + | Care Cat Sitter Name | Role | Phone | [...] [place] | | | | | [address] [facility] | [facility] | | | | | Rd [place], [place] | [place], [place] | | | | | [address] | [address] | | | | | [phone] | | | +--------+ + + + [...] [place] | | | | | | [address] | | | | | | [phone] | | | | | | | | +--------+ + + + + documented as of this encounter Visit Diagnoses Not on filedocumented in this encounter"
--- OUTSIDE RECORDS SUMMARY | ~2019-02-17 | XMS | Encounter Summary ---
Demographics + + + | Address | [address] | | | [place] [address] | + + + | Home Phone [...] | | | | | [place] [address] | | + + + + + | Thania Mallory | ECON | [address] | | | | | [place] [address] | | + + + + + | Deidra Weldon | ECON | [address] | | | | | [place] | | | | | [address] | | + + + + + Care Team Providers + +------+ + | Care Papier Mache Molder Name | Role | Phone | [...] Denise | | | | | | [place], [place] | | | | | | [address] | | | | | | [phone] | | | | | | | | +--------+ + + + + documented as of this encounter Visit Diagnoses Not on filedocumented in this encounter"
--- OUTSIDE RECORDS SUMMARY | ~2019-02-17 | XMS | Encounter Summary ---
Demographics + + + | Address | [address] | | | [place] [address] | + + + | Home Phone [...] | Author | [facility] | | | and [place] | + + + | Organization | [facility] | [...] Team Providers + +------+ + | Care Hydraulic Rock Drill Operator Name | Role | Phone [...] | | | | | malfunction, | [address] [address] | [address] | | | | | initial | [address] [place] | [place], | | | | | encounter | [place], [place] | [place] [address] | | | | | ([facility]) | [address] | Phone: | | | | | | Phone: | [phone] | | | | | | [phone] | Fax: | | | | | | Fax: | [phone] | | | | | | [phone] | | +--------+ + + + + [...] fistula | MD [address] | | | | | malfunction, | [place] | [place], | | | | | initial | [address] [place] | [place] [address] | | | | | encounter | [place], [place] | Phone: | | | | | ([facility]) | [address] | [phone] | | | | | Procedures | Phone: | Fax: | | | | | IR Procedure | [phone] | [phone] | | | | | [address] | Fax: | | | | | | NEEDLE/CATH | [phone] | | | | | | A-V [...] NEPHROLOGY [address] | MD [address] | malfunction, initial | | | | [address] | [address] [place] | encounter (HCC) | | | | [place], [place] | [place] [address] | (Primary Dx) | | | | [address] | [phone] | | | | | [phone] | | | +--------+ + + + [...] [address] | | | | | | [place] [address] | | | | | | [phone] | | | | | | | [...] | Dialysis AV fistula malfunction, initial encounter ([facility]) - Primary | + + documented in this encounter"
--- OUTSIDE RECORDS SUMMARY | ~2019-02-17 | XMS | Encounter Summary ---
Demographics + + + | Address | [address] | | | [place] [address] | + + + | Home Phone [...] | | | | | [place] [address] | | + + + + + | Thania Mallory | ECON | [address] | | | | | [place] [address] | | + + + + + | Deidra Weldon | ECON | [address] | | | | | [place] | | | | | [address] | | + + + + + Care Team Providers + +------+ + | Care Forklift Technician Name | Role | Phone | [...] | VERIFICATION) | | | | [address] [facility] | [facility] | | | | | Rd [place], [place] | [place], [place] | | | | | [address] | [address] | | | | | [phone] | | | +--------+ + + + [...] Denise | | | | | | [place] | | | | | | [address] | | | | | | [phone] | | | | | | | | +--------+ + + + + documented as of this encounter Visit Diagnoses Not on filedocumented in this encounter"
--- OUTSIDE RECORDS SUMMARY | ~2019-02-17 | XMS | Encounter Summary ---
Demographics + + + | Address | [address] | | | [place] [address] | + + + | Home Phone [...] | | | | | [place] [address] | | + + + + + | Thania Mallory | ECON | [address] | | | | | [place] [address] | | + + + + + | Deidra Weldon | ECON | [address] | | | | | [place] | | | | | [address] | | + + + + + Care Team Providers + +------+ + | Care Tire Classifier Name | Role | Phone | + [...] Hoffmann | | | | | [facility] | [facility] | | | | | Rd [place], [place] | [place] | | | | | [address] | [address] | | | | | [phone] | | | +--------+ + + + [...] Denise | | | | | | [place], [place] | | | | | | [address] | | | | | | [phone] | | | | | | | | +--------+ + + + + documented as of this encounter Visit Diagnoses Not on filedocumented in this encounter"
--- OUTSIDE RECORDS SUMMARY | ~2019-02-17 | XMS | Encounter Summary ---
Demographics + + + | Address | [address] | | | [place] [address] | + + + | Home Phone [...] | | | | | [place] [address] | | + + + + + | Thania Mallory | ECON | [address] | | | | | [place] [address] | | + + + + + | Deidra Weldon | ECON | [address] | | | | | [place] | | | | | [address] | | + + + + + Care Team Providers + +------+ + | Care Paper And Prints Restorer Name | Role | Phone | + [...] [address] | | | | | ([facility], [facility]IN [facility]) | Shun Griffin | Mailcode: | | | | | Procedures | Caro Chan | DCH8S | | | | | TRANSTHORACI | [place], [place] | [address] | | | | | C | [address] | [place], [place] | | | | | ECHOCARDIOGR | Phone: | [address] | | | | | AM, PEDS | [phone] | Phone: | | | | | | Fax: | [phone] | | | | | | [phone] | Fax: | | | | | | | [phone] | +--------+--------+ + + + + Reason [...] | | conchita | [address] | [facility] | | | | | (HCC) | Shun Griffin | Mailcode: | | | | | Procedures | Caro Chan | DCH8S | | | | | TRANSTHORACI | [place], [place] | [place] | | | | | C | [address] | [place], [place] | | | | | ECHOCARDIOGR | Phone: | [address] | | | | | AMKAJALS | [phone] | Phone: | | | | | | Fax: | [phone] | | | | | | [phone] | Fax: | | | | | | | [phone] | +--------+--------+ + + + + Encounter Details +--------+ + + + + | Date | Type | Department | Care Team | Description | +--------+ + + + + | 12/20/ | Hospital | Pediatric Echo Lab | | | | 2012 | Encounter | at [facility] [address] | | | | | | [place] Mailcode: | | | | | | [id number] [place] | | | | | | [place], [place] | | | | | | [address] | | | | | | [phone] | | | +--------+ + + + [...] Denise | | | | | | [place], [place] | | | | | | [address] | | | | | | [phone] | | | | | | | [...]
--- OUTSIDE RECORDS SUMMARY | ~2019-02-17 | XMS | Encounter Summary ---
Demographics + + + | Address | [address] | | | [place] [address] | + + + | Home Phone [...] [facility] | | | and [place] | + + + | Organization | [facility] | [...] Providers + +------+ + | Care Law Secretary Name | Role | Phone | + +------+ + PCP | Unavailable | + +------+ + Encounter Details +--------+ + + + + | Date | Type | Department | Care Team | Description | +--------+ + + + + | 07/31/ | Hospital | [facility] | Conversion | ESRD (end stage | | 2015 | Encounter | CENTER CV INTRA OP | Transaction, | renal disease) (HCC) | | | | [address] | Provider Unknown | | | | | [place], [place] | [phone] | | | | | [address] | | | | | | [phone] | Colten Hutchins MD | | | | | | [address] | | | | | | [place], [place] | | | | | | [address] | | | | | | | [...] 07/31/141620 Date of Service: 07/31/141619 Status: Signed Vocational Education Professional: Mervat Harden RN (Registered Nurse) Pt meets d/c criteria. Site c/d/i and soft. Mother providing transportation home. Mervat Harden RN onver arturo Transaction, Provider Unknown - 07/31/2014 3:52 PM PDT Progress Notes by Mervat Harden RN at 07/31/141551 Author: Mervat Harden RN Service: (none) Author Type: Registered Nurse Filed: 07/31/14 9895 Date of Service: 07/31/141551 Status: Signed Vocational Education Professional: Mervat Harden RN (Registered Nurse) Pt tolerated [...] [place] | | | | | | [place] [address] | | | | | | [phone] | | | | | | | [...] this | | | patient in the Principal Programmer holding area. I had a discussion with [...] met this patient | | in the Principal Programmer holding area. I had a discussion with [...]
--- OUTSIDE RECORDS SUMMARY | ~2019-02-17 | XMS | Encounter Summary ---
Demographics + + + | Address | [address] | | | [place] [address] | + + + | Home Phone [...] Author | [facility] | | | and [place] | + + + | Organization | [facility] | | [...] Providers + +------+ + | Care Metal Lather Name | Role | Phone | + +------+ + PCP | Unavailable | + +------+ + Encounter Details +--------+ + + + + | Date | Type | Department | Care Team | Description | +--------+ + + + + | 04/08/ | Hospital | [facility] | Rik Simon MD | | | 2015 | Encounter | [facility] | [address] | | | | | [address] | [place], [place] | | | | | [place], [place] | [address] | | | | | [address] | [phone] | | | | | [phone] | | | +--------+ + + + [...] 142 Date of Service: 04/08/141425 Status: Signed Occup Ther: Coral Amador RPH (Pharmacist) Clinical Pharmacy Note - Renal Dose Adjustment Dara Weldon 19 y.o. female Ht Readings from Last 1 Encounters: 04/08/14 1.676 m (5' 6") (75 %*, Z = 0.69) * Growth percentiles are based on [facility] 2-20 Years data. Wt Readings from Last 1 Encounters: 04/08/14 96.2 kg (212 lb 1.3 oz) (98 %*, Z = 2.12) * Growth percentiles are based on [facility] 2-20 Years data. CREATININE Date Value Ref Range Status 04/08/2014 8.68* 0.50 - 1.00 mg/dL Final Testing performed at [facility];[address] [place] [address];[place] [address] ESRD on HD Pharmacy to renally adjust [...] Note by Cheryl Rubalcava RN at 04/08/14 4564 Author: Cheryl Rubalcava RN Service: (none) Author Type: Registered Nurse Filed: 04/08/14 1443 Date of Service: 04/08/141407 Status: Signed Occup Ther: Cheryl Rubalcava RN (Registered Nurse) Pt and [...] 132 Date of Service: 04/08/141320 Status: Signed Occup Ther: Cheryl Rubalcava RN (Registered Nurse) Pt family [...] [place] | | | | | | [place] [address] | | | | | | [phone] | | | | | | | [...] | LAB | | | | Blvd;[place] [address] | | | | + + + + + + | Antibody | NEGATIVE | | EXTERNAL | | | Screen | | | LAB | | + + + + + + | Antibody | Testing performed at | | EXTERNAL | | | Screen | [facility];[address] | | LAB | | | | [address];[place] [address] | | | | + + + + + + | BB BAND | [id number] | | EXTERNAL | | | | | | LAB | | + + + + + + | BB BAND | Testing performed at | | EXTERNAL | | | | [facility];[address] | | LAB | | | | [address]vd;[place] [address] | | | | + + + [...] EXTERNAL | | | | performed at [facility];[address] | mmol/L | LAB | | | | [address];[place] | | | | | | [address] | | | | + + + + + + | K | 4.1Comment: SLT | 3.5 - 4.9 | EXTERNAL | | | | HEMOLYSISTesting | mmol/L | LAB | | | | performed at [facility];[address] | | | | | | [address];[place] | | | | | | [address] | | | | + + + + + + | Cl | 102Comment: Testing | 99 - 109 mmol/L | EXTERNAL | | | | performed at [facility];[address] | | LAB | | | | [address];[place] | | | | | | [address] | | | | + + + + + + | CO2 | 28Comment: Testing | 23 - 32 mmol/L | EXTERNAL | | | | performed at [facility];[address] | | LAB | | | | [address];[place] | | | | | | [address] | | | | + + + + + + | Anion Gap | 13Comment: Testing | 5 - 20 mmol/L | EXTERNAL | | | | performed at [facility];[address] | | LAB | | | | [address];[place] | | | | | | [address] | | | | + + + + + + | Glucose, | 87Comment: Testing | 65 - 99 mg/dL | EXTERNAL | | | Fasting | performed at [facility];[address] | | LAB | | | | [address];[place] | | | | | | [address] | | | | + + + + + + | BUN | 32 (H)Comment: Testing | 8 - 25 mg/dL | EXTERNAL | | | | performed at [facility];[address] | | LAB | | | | [address];[place] | | | | | | [address] | | | | + + + + + + | Creatinine | 8.68 (H)Comment: Testing | 0.50 - 1.00 | EXTERNAL | | | | performed at [facility];[address] | mg/dL | LAB | | | | [address];[place] | | | | | | [address] | | | | + + + + + + | BUN/Creatin | 4Comment: Testing | | EXTERNAL | | | ine Ratio | performed at [facility];[address] | | LAB | | | | [address];[place] | | | | | | [address] | | | | + + + + + + | Calcium | 8.8Comment: NOTE NEW | 8.5 - 10.5 | EXTERNAL | | | | REFERENCE RANGETesting | mg/dL | LAB | | | | performed at [facility];[address] | | | | | | [address];[place] | | | | | | [address] | | | | + + + + + + | Estimated | CALCULATION NOT | mL/min/1.73m2 | EXTERNAL | | | GFR | PERFORMED. RESULT NOT | | LAB | | | | VALID IF AGE LT 20 | | | | | | YEARS.Comment: Testing | | | | | | performed at [facility];[address] | | | | | | [address];[place], [place] | | | | | | [address] | | | | + + + [...]
--- OUTSIDE RECORDS SUMMARY | ~2019-02-17 | XMS | Encounter Summary ---
Demographics + + + | Address | [address] | | | [place] [address] | + + + | Home Phone [...] | | | | | [place] [address] | | + + + + + | Thania Mallory | ECON | [address] | | | | | [place] [address] | | + + + + + | Deidra Weldon | ECON | [address] | | | | | [place] | | | | | [address] | | + + + + + Care Team Providers + +------+ + | Care Round Corner Cutter Operator Name | Role | Phone | [...] Pool Shun | | | | | [facility] | [facility] | | | | | Rd [place], [place] | [place], [place] | | | | | [address] | [address] | | | | | [phone] | | | +--------+ + + + [...] Denise | | | | | | [place] | | | | | | [address] | | | | | | [phone] | | | | | | | | +--------+ + + + + documented as of this encounter Visit Diagnoses Not on filedocumented in this encounter"
--- OUTSIDE RECORDS SUMMARY | ~2019-02-17 | XMS | Encounter Summary ---
Demographics + + + | Address | [address] | | | [place] [address] | + + + | Home Phone [...] | | | | | [place] [address] | | + + + + + | Thania Mallory | ECON | [address] | | | | | [place] [address] | | + + + + + | Deidra Weldon | ECON | [address] | | | | | [place] | | | | | [address] | | + + + + + Care Team Providers + +------+ + | Care Metal Drawer Name | Role | Phone | + [...] | Update | | | | [facility] | [facility] | | | | | Rd [place], [place] | [place], [place] | | | | | [address] | [address] | | | | | [phone] | | | +--------+ + + + [...] [place] | | | | | | [address] | | | | | | [phone] | | | | | | | | +--------+ + + + + documented as of this encounter Visit Diagnoses Not on filedocumented in this encounter"
--- OUTSIDE RECORDS SUMMARY | ~2019-02-17 | XMS | Encounter Summary ---
Demographics + + + | Address | [address] | | | [place] [address] | + + + | Home Phone [...] Author | [facility] | | | and [place] | + + + | Organization | [facility] | [...] Providers + +------+ + | Care Collection Analyst Name | Role | Phone | [...] [place] | | | | | [place] | [place] [address] | | | | | [address] | [phone] | | | | | [phone] | | | +--------+ + + + [...] [place] | | | | | | [place] [address] | | | | | | [phone] | | | | | | | [...] 0.39 m/s | | | MV Dec Sully: 9.46 m/s2 MV DecT: 106.01 ms MV E Shahid: 1.00 | | | m/s MV E/A Ratio: 2.54 E/E' Sept: 23.82 E' Lat: 0.08 m/s | | | E' Sept: 0.04 m/s RAP: 15 mmHg RV S': 0.11 m/s RVSP: | | | 67.64 mmHg TR maxP.64 mmHg TR Vmax: 3.61 m/s | | | Survey Director: Authenticated by: René Noonan MD Report Date/Time: | | | -- 38_[id number]_64:15:25 | | + + + + + [...] (A-L): 31.60 | | ml/m2LAAs A2C: 18.56 [id number] A-L A2C: 58.49 mlLAESV MOD A2C: 54.57 mlLALs A2C: | | 5.00 cmLAAs A4C: 17.96 [id number] A-L A4C: 52.99 mlLAESV MOD A4C: 44.93 mlLALs A4C: | | 5.18 cmLAESV(MOD BP): 49.83 mlRAAs: 18.33 [id number] A-L: 57.01 mlRAESV MOD: | | 56.24 mlRALs: 5.02 cmTAPSE: 1.98 cmAV Env.Ti: 227.35 msAV maxP.22 mmHgAV | | meanP.25 mmHgAV Vmax: 1.59 m/Elizabeth Vmean: 1.06 m/Elizabeth VTI: 24.30 cmAVA Vmax: | | 2.68 cm2AVA (VTI): 2.73 [id number] Vmax: 0.00 cm2/m2AVAI (VTI): 0.00 cm2/m2LVOT | | Env.Ti: 210.72 msLVOT maxP.99 mmHgLVOT meanP.87 mmHgLVSI Dopp: 37.17 | | ml/m2LVSV Dopp: 66.54 mlLVOT Vmax: 1.41 m/sLVOT Vmean: 1.03 m/sLVOT VTI: 21.88 | | cmMV A Shahid: 0.39 m/sMV Dec Sully: 9.46 m/s2MV DecT: 106.01 msMV E Shahid: 1.00 | | m/sMV E/A Ratio: 2.54E/E' Sept: 23.82E' Lat: 0.08 m/sE' Sept: 0.04 m/sRAP: 15 | | mmHgRV S': 0.11 m/sRVSP: 67.64 mmHgTR maxP.64 mmHgTR Vmax: 3.61 m/s | | Survey Director:Authenticated by: René Noonan MDReport Date/Time: -- 28_2-9-4487_07:15:25 | | IMPRESSION: 1. Overall left ventricular [...] A Shahid: 0.39 m/s | |MV Dec Sully: 9.46 m/s2 | |MV DecT: 106.01 ms | |MV E Shahid: 1.00 m/s | |MV E/A Ratio: 2.54 | |E/E' Sept: 23.82 | |E' Lat: 0.08 m/s | |E' Sept: 0.04 m/s | |RAP: 15 mmHg | |RV S': 0.11 m/s | |RVSP: 67.64 mmHg | |TR maxP.64 mmHg | |TR Vmax: 3.61 m/s | | | |Survey Director: | |Authenticated by: René oNonan MD | |Report Date/Time: -- 14_[id number]_11:15:25 | | | |IMPRESSION: | |1. Overall [...]
--- OUTSIDE RECORDS SUMMARY | ~2019-02-17 | XMS | Encounter Summary ---
Demographics + + + | Address | [address] | | | [place] [address] | + + + | Home Phone [...] Author | [facility] | | | and [place] | + + + | Organization | [facility] | | [...] Team Providers + +------+ + | Care Measurement Specialist Name | Role | Phone | [...] RN | | | | | [facility] [address] | | | | | | [place] | | | | | | [address] | | | | | | [phone] | | | +--------+ + + + [...] [place] | | | | | | [place] [address] | | | | | | [phone] | | | | | | | | +--------+---------+ + + + documented as of this encounter Visit Diagnoses Not on filedocumented in this encounter"
--- OUTSIDE RECORDS SUMMARY | ~2019-02-17 | XMS | Encounter Summary ---
Demographics + + + | Address | [address] | | | [place] [address] | + + + | Home Phone [...] [address] | | | | | [place] [address] | | + + + + + | Thania Mallory | ECON | [address] | | | | | [place] [address] | | + + + + + | Deidra Weldon | ECON | [address] | | | | | [place] | | | | | [address] | | + + + + + Care Team Providers + +------+ + | Care Systems Administrator Name | Role | Phone [...] attempt(s) to | | | | Rd [place], [place] | [place], [place] | contact pt re move | | | | [address] | [address] | and new PAF as | | | | [phone] | | listed) | +--------+ + + [...] | 2022 | Encounter | | [address] | | | | | | [place], [place] | | | | | | [address] | | | | | | [phone] | | | | | | | | +--------+ + + + + documented as of this encounter Visit Diagnoses Not on filedocumented in this encounter"
--- OUTSIDE RECORDS SUMMARY | ~2019-02-17 | XMS | Encounter Summary ---
Demographics + + + | Address | [address] | | | [place] [address] | + + + | Home Phone [...] | | | | | [place] [address] | | + + + + + | Thania Mallory | ECON | [address] | | | | | [place] [address] | | + + + + + | Deidra Weldon | ECON | [address] | | | | | [place] | | | | | [address] | | + + + + + Care Team Providers + +------+ + | Care Sanitation Worker Cleaning Equipment Name | Role | Phone | [...] SW | | | | ANNAL[address] [facility] | [facility] [address] | clinic visit - | | | | Rd [place], [place] | [place], [place] | psychosocial | | | | [address] | [address] | readiness update) | | | | [phone] | | | +--------+ + + + [...] Denise | | | | | | [place], [place] | | | | | | [address] | | | | | | [phone] | | | | | | | | +--------+ + + + + documented as of this encounter Visit Diagnoses Not on filedocumented in this encounter"
--- OUTSIDE RECORDS SUMMARY | ~2019-02-17 | XMS | Encounter Summary ---
Demographics + + + | Address | [address] | | | [place] [address] | + + + | Home Phone [...] Author | [facility] | | | and [place] | + + + | Organization | [facility] [...] Team Providers + +------+ + | Care Cdl Dedicated Truck Driver Name | Role | Phone [...] + + | 12/17/ | Telephone | [facility] | [place], | Appointment | | 2019 | | CENTER CASE | Irish Obrien CMA | (Appointment with | | | | MANAGEMENT [address] | | PCP needed) | | | | [address] | | | | | | [place], [place] | | | | | | [address] | | | | | | [phone] | | | +--------+ + + + [...] [place] | | | | | | [place] [address] | | | | | | [phone] | | | | | | | | +--------+---------+ + + + documented as of this encounter Visit Diagnoses Not on filedocumented in this encounter"
--- OUTSIDE RECORDS SUMMARY | ~2019-02-17 | XMS | Encounter Summary ---
Demographics + + + | Address | [address] | | | [place] [address] | + + + | Home Phone [...] | | | | | [place] [address] | | + + + + + | Thania Mallory | ECON | [address] | | | | | [place] [address] | | + + + + + | Deidra Weldon | ECON | [address] | | | | | [place] | | | | | [address] | | + + + + + Care Team Providers + +------+ + | Care Nonprofit Director Name | Role | Phone | [...] | lab/Provider | | | | [place], [place] | [place], [place] | updated) | | | | [address] | [address] | | | | | [phone] | [phone] | | | | | | | [...] Denise | | | | | | [place], [place] | | | | | | [address] | | | | | | [phone] | | | | | | | | +--------+ + + + + documented as of this encounter Visit Diagnoses Not on filedocumented in this encounter"
--- OUTSIDE RECORDS SUMMARY | ~2019-02-17 | XMS | Encounter Summary ---
Demographics + + + | Address | [address] | | | [place] [address] | + + + | Home Phone [...] | Author | [facility] | | | and [place]ana | + + + | Organization | [facility] | [...] Team Providers + +------+ + | Care Synthetic Gem Press Operator Name | Role | Phone [...] + | 02/28/ | Telephone | [facility] | Blake Chavarria | Appointment (Post | | 2013 | | SURGERY [address] | MD Antonieta, FACS [address] | Op) | | | | [place], [place] | [address] | | | | | [address] | [place] [address] | | | | | [phone] | [phone] | | | | | | | [...] [place] | | | | | | [place] [address] | | | | | | [phone] | | | | | | | | +--------+---------+ + + + documented as of this encounter Visit Diagnoses Not on filedocumented in this encounter"
--- OUTSIDE RECORDS SUMMARY | ~2019-02-17 | XMS | Encounter Summary ---
Demographics + + + | Address | [address] | | | [place] [address] | + + + | Home Phone [...] | | | | | [place] [address] | | + + + + + | Thania Mallory | ECON | [address] | | | | | [place] [address] | | + + + + + | Deidra Weldon | ECON | [address] | | | | | [place] | | | | | [address] | | + + + + + Care Team Providers + +------+ + | Care Headhunter Name | Role | Phone | + [...] Family sheet & | | | | [address] | [address] | crossmatch report) | | | | Loop Mailcode: | [place], [place] | | | | | [address] [facility] | [address] | | | | | [address] | [phone] | | | | | [place], [place] | | | | | | [address] | | | | | | [phone] | | | +--------+ + + + [...] Denise | | | | | | [place], [place] | | | | | | [address] | | | | | | [phone] | | | | | | | | +--------+ + + + + documented as of this encounter Visit Diagnoses Not on filedocumented in this encounter"
--- OUTSIDE RECORDS SUMMARY | ~2019-02-17 | XMS | Encounter Summary ---
Demographics + + + | Address | [address] | | | [place] [address] | + + + | Home Phone [...] | | | | | [place] [address] | | + + + + + | Thania Mallory | ECON | [address] | | | | | [place] [address] | | + + + + + | Deidra Weldon | ECON | [address] | | | | | [place] | | | | | [address] | | + + + + + Care Team Providers + +------+ + | Care Money Market Dealer Name | Role | Phone | + [...] | | | MD [address] | [facility] | | | | | | Keven | Mailcode: | | | | | | Hospital | [facility] | | | | | | [address] | [place] | | | | | | [address] | [place], [place] | | | | | | [place] | [address] | | | | | | [place] | Phone: | | | | | | [address] | [phone] | | | | | | Phone: | | | | | | | [phone] | | | | | | | Fax: | | | | | | | [phone] | | +--------+--------+ + + + + Encounter Details +--------+---------+ + + + | Date | Type | Department | Care Team | Description | +--------+---------+ + + + | 01/20/ | Office | Specialty Clinics | Sudhakar Joy | [facility] | | 2014 | Visit | at [facility] [address] [facility] | (David | | | | [place] Mailcode: | [facility] [facility] [address] | purpura) nephritis | | | | [facility] [address] | [place], [place] | (Primary Dx); | | | | [place], [place] | [address] | Allergic purpura- | | | | [address] | [phone] | MEDICARE 2051; | | | | [phone] | | Anemia of chronic | | [...] - 01/20/2015 11:12 AM PST Pediatric Nephrology Draa was seen on 01/20/2015 for a visit [...] [address] Mail code [id number] [place], [place] [address] documented in this encounter Plan of Treatment +--------+ + + + + | Date | Type | Specialty | Care Team | Description | +--------+ + + + + | 05/04/ | Hospital | Adult Acute Care | El Starr MD | | | 2022 | Encounter | | [address] | | | | | | [place], [place] | | | | | | [address] | | | | | | [phone] | | | | | | | [...]
--- OUTSIDE RECORDS SUMMARY | ~2019-02-17 | XMS | Encounter Summary ---
Demographics + + + | Address | [address] | | | [place] [address] | + + + | Home Phone [...] | Author | [facility] | | | and Josephana | + + + | Organization | [facility] [...] Providers + +------+ + | Care Manager Food Name | Role | Phone | + +------+ + PCP | Unavailable | + +------+ + Encounter Details +--------+ + + + + | Date | Type | Department | Care Team | Description | +--------+ + + + + | 01/27/ | Hospital | [facility] GENER[facility] OP | Sudhakar Joy | | | 2009 | Encounter | JOY | MD Emanuel [address] | | | | | [address]PART[address] | [facility] | | | | [address] | [place], [place] | | | | | [place], [place] | [address] | | | | | [address] | [phone] | | | | | [phone] | | | +--------+ + + + [...] [place] | | | | | | [place] [address] | | | | | | [phone] | | | | | | | | +--------+---------+ + + + documented as of this encounter Visit Diagnoses Not on filedocumented in this encounter"
--- OUTSIDE RECORDS SUMMARY | ~2019-02-17 | XMS | Encounter Summary ---
Demographics + + + | Address | [address] | | | [place] [address] | + + + | Home Phone [...] | | | | | [place] [address] | | + + + + + | Thania Mallory | ECON | [address] | | | | | [place] [address] | | + + + + + | Deidra Weldon | ECON | [address] | | | | | [place] | | | | | [address] | | + + + + + Care Team Providers + +------+ + | Care Ironworker Machine Operator Name | Role | Phone [...] | 07/12/ | Documentati | Transplant | Kelis Martinez, | Transplant Status | | 2017 | on | Coordinators [id number] | RN [address] | Change (Delisting) | | | | [address] [facility] | [facility] | | | | | [address] [place], [place] | [place], [place] | | | | | [address] | [address] | | | | | [phone] | | | +--------+ + + + [...] Denise | | | | | | [place] | | | | | | [address] | | | | | | [phone] | | | | | | | | +--------+ + + + + documented as of this encounter Visit Diagnoses Not on filedocumented in this encounter"
--- OUTSIDE RECORDS SUMMARY | ~2019-02-17 | XMS | Encounter Summary ---
Demographics + + + | Address | [address] | | | [place] [address] | + + + | Home Phone [...] | | | | | [place] [address] | | + + + + + | Thania Mallory | ECON | [address] | | | | | [place] [address] | | + + + + + | Deidra Weldon | ECON | [address] | | | | | [place] | | | | | [address] | | + + + + + Care Team Providers + +------+ + | Care Hand Ironer Name | Role | Phone | + [...] Update | | | | [facility] | [facility] | | | | | [place], [place] | [place], [place] | | | | | [address] | [address] | | | | | [phone] | [phone] | | | | | | | [...] Denise | | | | | | [place], [place] | | | | | | [address] | | | | | | [phone] | | | | | | | | +--------+ + + + + documented as of this encounter Visit Diagnoses Not on filedocumented in this encounter"
--- OUTSIDE RECORDS SUMMARY | ~2019-02-17 | XMS | Encounter Summary ---
Demographics + + + | Address | [address] | | | [place] [address] | + + + | Home Phone [...] | | | | | [place] [address] | | + + + + + | Thania Mallory | ECON | [address] | | | | | [place] [address] | | + + + + + | Deidra Weldon | ECON | [address] | | | | | [place] | | | | | [address] | | + + + + + Care Team Providers + +------+ + | Care Assistant Store Manager Trainee Name | Role | Phone | + [...] Update | | | | Alexander | [facility] | | | | | [facility] | [place], [place] | | | | | [address] | [address] | | | | | Mailcode: [id number] | | | | | | [place] | | | | | | [place], [place] | | | | | | [address] | | | | | | [phone] | | | +--------+ + + + [...] [place] | | | | | | [address] | | | | | | [phone] | | | | | | | | +--------+ + + + + documented as of this encounter Visit Diagnoses Not on filedocumented in this encounter"
--- OUTSIDE RECORDS SUMMARY | ~2019-02-17 | XMS | Encounter Summary ---
Demographics + + + | Address | [address] | | | [place] [address] | + + + | Home Phone [...] | Author | [facility] | | | and Josephana | + + + | Organization | [facility] | [...] Team Providers + +------+ + | Care Spike Maker Name | Role | Phone | [...] [place] | | | | | | [place], [place] | | | | | | [address] | | | | | | [phone] | | | +--------+ + + + [...] | | renal disease) ([facility]) | protocol | | | | [...] [place] | | | | | | [place] [address] | | | | | | [phone] | | | | | | | | +--------+---------+ + + + documented as of this encounter Visit Diagnoses Not on filedocumented in this encounter"
--- OUTSIDE RECORDS SUMMARY | ~2019-02-17 | XMS | Encounter Summary ---
Demographics + + + | Address | [address] | | | [place] [address] | + + + | Home Phone [...] Author | [facility] [place] | | | and Josephana | + + + | Organization | [facility] [...] Providers + +------+ + | Care Sales Account Associate Name | Role | Phone | [...] + + | 01/07/ | Hospital | [facility] | Florian Nelson, | Hyperkalemia | | 2019 - | Encounter | [facility] | [address] | (Primary Dx); ESRD | | | | CARE FLOOR [address] | [place] [address] | needing dialysis | | 01/10/ | | [address] | [phone] | ([facility]); Acute | | 2019 | | [place], [place] | | respiratory | | | | [address] | Herccristiana, Megan, DO | distress; Recurrent | | | | [phone] | [address] | right pleural | | | | | [place] [address] | effusion; Anemia in | | | | | [phone] | ESRD (end-stage | | | | | | renal disease) | | | | | Nicholas Sutton MD | ([facility]); At high risk | | | | | [address] | for electrolyte | | | | | [place] [address] | imbalance; Chronic | | | | | [phone] | 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 | | | | | Piedad Mosquera MD | failure ([facility]); | | | | | [address] | Dilated | | | | | [place] [address] | cardiomyopathy | | | | | [phone] | ([facility]); ESRD on | | | | | | hemodialysis ([facility]); | | | | | Paty Kline DO | Noncompliance; | | | | | [address] | Uncontrolled | | | | | [place] [address] | hypertension | | | | | [phone] | | | | | | | [...] a refill from your regular physician or yard assistant. We are always happy to be a [...] the advice of your doctor or health youth care specialist. A special MedGuide will be given to you by the pharmacist with each prescription and refill . Be sure to read this information carefully each time. Talk to your tape cutter regarding the use of this medicine in children. Special care may be needed. What side effects may I notice from receiving this medicine? Side effects that you should report to your doctor or health youth care specialist as soon as p ossible: allergic reactions [...] attention (report to your doctor or health youth care specialist if they continue or are bothersome): dizziness [...] this medicine? Tell your doctor or health youth care specialist if your symptoms do not start to [...] dying should be reported to your health youth care specialist right away. NOTE:This sheet is a summary. [...] | | | | renal disease) ([facility]) | protocol | | [...] was completed later after rounds. Dictation software, InstantQ, was used which may contain error for [...] Nereida Cole RN - 01/09/2019 1:30 PM [id number]- Pt c/o chest pain rated 9/10, described [...] orders at this time, however EKG ordered. ep tech called and en route. 1340- EKG [...] eGFR of less than 15 ml/min/1.73 m2. NSAIDS/SAUREZ 2 inhibitors should be avoided. Aluminum/magnesium containing [...] was completed later after rounds. Dictation software, InstantQ, was used which may contain error for [...] Kline DO - 01/09/2019 8:20 AM PST [facility] Adult Hospitalist Progress Note Hospital Day: 2 [...] Hyperkalemia: -Treated in the emergency room at [facility] that he had, potassium now [...] of transfusion at this time -Epogen per yard assistant GI and DVT prophylaxis Paty Kline DO [...] was completed later after rounds. Dictation software, InstantQ, was used which may contain error for [...] DO Paty - 01/08/2019 7:50 AM PST [facility] Adult Hospitalist Progress Note Hospital [...] Hyperkalemia: -Treated in the emergency room at [facility] that he had, potassium now [...] of transfusion at this time -Epogen per yard assistant Hypoglycemia: -Likely secondary to insulin given for her hyperkalemia and decrease PO intake -Hypoglycemic protocol GI and DVT prophylaxis Paty Kline DO 01/08/2019 Piedad Vega MD - 01/07/2019 7:14 AM PST [facility] Service: Hospitalist Progress Note Hospital Day: LOS: 0 days SUBJECTIVE Patient Summary: From HPI Dr. Martínez 01/07/19 The patient is a 23 y.o. female with significant past medical history of HSP nephritis, rig ht pleural effusions recurrent, thoracentesis, bacteremia, clotted hemodialysis catheter, no ncompliance, asthma who presents transferred from [facility] with hyperkalemia, hyperte nsion noncompliant [...] life. Patient was treated for hyperkalemia in [facility] as her potassium was 6.8. The data from [facility] was a chest x-ray which [...] for input(s): IRON, TIBC, PCTSAT, FERRITIN, TSH, [id number], FOLATE in the last 168 hours. No [...] Hyperkalemia: -Treated in the emergency room at [facility] that he had, potassium now [...] of transfusion at this time -Epogen per yard assistant Hypoglycemia: -Likely secondary to insulin given for [...] | | | | [place] [address] | | | | | | [phone] | | | | | | | [...] | | | POC | performed at [facility];[address] | | LABORATORY | | | | [address];[place], [place] | | | | | | [address] | | | | + + + + + + + + | Specimen | + + | | + + + + + + + | Performing | Address | City/State/Zipcode | Phone Number | | Organization | | | | + + + + + | [facility] | [address] | [place] [address] | [phone] | + + + + + POC [...] | | | POC | performed at [facility];[address] | | LABORATORY | | | | [address];[place] | | | | | | [address] | | | | + + + + + + + + | Specimen | + + | | + + + + + + + | Performing | Address | City/State/Zipcode | Phone Number | | Organization | | | | + + + + + | [facility] | [address] | [place] [address] | [phone] | + + + + + CBC [...] MISHEL | | | | performed at [facility];[address] | | LABORATORY | | | | [address];[place], [place] | | | | | | [address] | | | | + + + + + + + + | Specimen | + + | Blood | + + + + + + + | Performing | Address | City/State/Zipcode | Phone Number | | Organization | | | | + + + + + | [facility] | [address] | [place] [address] | [phone] | + + + + + Phosphorus (01/10/2019 7:03 AM PST) + + + + + + | Component | Value | Ref Range | Performed | Pathologist | | | | | At | Signature | + + + + + + | Phosphorus | 5.4 (H)Comment: Testing | 2.3 - 4.8 mg/dL | [facility] | | | | performed at [facility];[address] | | LABORATORY | | | | [address];[place], [place] | | | | | | [address] | | | | + + + + + + + + | Specimen | + + | Blood | + + + + + + + | Performing | Address | City/State/Zipcode | Phone Number | | Organization | | | | + + + + + | [facility] | [address] | [place] [address] | [phone] | + + + + + Magnesium (01/10/2019 7:03 AM PST) + + + + + + | Component | Value | Ref Range | Performed | Pathologist | | | | | At | Signature | + + + + + + | Magnesium | 2.0Comment: Testing | 1.7 - 2.4 mg/dL | [facility] | | | | performed at [facility];[address] | | LABORATORY | | | | [address];[place] | | | | | | [address] | | | | + + + + + + + + | Specimen | + + | Blood | + + + + + + + | Performing | Address | City/State/Zipcode | Phone Number | | Organization | | | | + + + + + | [facility] | [address] | [place] [address] | [phone] | + + + + + Basic [...] | | | | | performed at [facility];[address] | | | | | | [facility];[place], [place] | | | | | | [address] | | | | + + + + + + + + | Specimen | + + | Blood | + + + + + + + | Performing | Address | City/State/Zipcode | Phone Number | | Organization | | | | + + + + + | [facility] | [address] | [place] [address] | [phone] | + + + + + POC Glucose (01/09/2019 9:10 PM PST) + + + + + + | Component | Value | Ref Range | Performed | Pathologist | | | | | At | Signature | + + + + + + | Glucose, | 141 (H)Comment: Testing | 65 - 99 mg/dL | [facility] | | | POC | performed at [facility];[address] | | LABORATORY | | | | [address];[place], [place] | | | | | | [address] | | | | + + + + + + + + | Specimen | + + | | + + + + + + + | Performing | Address | City/State/Zipcode | Phone Number | | Organization | | | | + + + + + | [facility] | [address] | [place] [address] | [phone] | + + + + + POC [...] | | | POC | performed at [facility];[address] | | LABORATORY | | | | [address];[place], [place] | | | | | | [address] | | | | + + + + + + + + | Specimen | + + | | + + + + + + + | Performing | Address | City/State/Zipcode | Phone Number | | Organization | | | | + + + + + | [facility] | [address] | [place] [address] | [phone] | + + + + + XR [...] | | PORTABLE (01/07/2019); CHEST TWO VIEWS 27951 (01/06/2019); XR CHEST AP | | | [...] PORTABLE (01/07/2019); | | CHEST TWO VIEWS 44774 (01/06/2019); XR CHEST AP PORTABLE (12/13/2018); | [...] | | | POC | performed at [facility];[address] | | LABORATORY | | | | [address];[place], [place] | | | | | | [address] | | | | + + + + + + + + | Specimen | + + | | + + + + + + + | Performing | Address | City/State/Zipcode | Phone Number | | Organization | | | | + + + + + | [facility] | [address] | [place] [address] | [phone] | + + + + + Comprehensive [...] | | | | | performed at [facility];[address] | | | | | | [facility];[place], [place] | | | | | | [address] | | | | + + + + + + + + | Specimen | + + | Blood | + + + + + + + | Performing | Address | City/State/Zipcode | Phone Number | | Organization | | | | + + + + + | [facility] | [address] [facility] | [place] [address] | [phone] | + + + + + CBC [...] | | LABORATORY | | | | [address] [place] [address] | | | | | | Blvd;[place] [address] | | | | + + + + + + + + | Specimen | + + | Blood | + + + + + + + | Performing | Address | City/State/Zipcode | Phone Number | | Organization | | | | + + + + + | [facility] | [address] | [place] [address] | [phone] | + + + + + POC Glucose (01/09/2019 7:50 AM PST) + + + + + + | Component | Value | Ref Range | Performed | Pathologist | | | | | At | Signature | + + + + + + | Glucose, | 161 (H)Comment: Testing | 65 - 99 mg/dL | [facility] | | | POC | performed at [facility];[address] | | LABORATORY | | | | [address];[place] | | | | | | [address] | | | | + + + + + + + + | Specimen | + + | | + + + + + + + | Performing | Address | City/State/Zipcode | Phone Number | | Organization | | | | + + + + + | [facility] | [address] | [place] [address] | [phone] | + + + + + POC Glucose (01/09/2019 6:19 AM PST) + + + + + + | Component | Value | Ref Range | Performed | Pathologist | | | | | At | Signature | + + + + + + | Glucose, | 88Comment: Testing | 65 - 99 mg/dL | [facility] | | | POC | performed at [facility];[address] | | LABORATORY | | | | [address];[place] | | | | | | [address] | | | | + + + + + + + + | Specimen | + + | | + + + + + + + | Performing | Address | City/State/Zipcode | Phone Number | | Organization | | | | + + + + + | [facility] | [address] | [place] [address] | [phone] | + + + + + POC [...] | | | POC | performed at [facility];[address] | | LABORATORY | | | | [address];[place], [place] | | | | | | [address] | | | | + + + + + + + + | Specimen | + + | | + + + + + + + | Performing | Address | City/State/Zipcode | Phone Number | | Organization | | | | + + + + + | [facility] | [address] | [place] [address] | [phone] | + + + + + POC [...] | | | POC | performed at [facility];[address] | | LABORATORY | | | | [address];[place] | | | | | | [address] | | | | + + + + + + + + | Specimen | + + | | + + + + + + + | Performing | Address | City/State/Zipcode | Phone Number | | Organization | | | | + + + + + | [facility] | [address] | [place] [address] | [phone] | + + + + + POC Glucose (01/08/2019 12:23 PM PST) + + + + + + | Component | Value | Ref Range | Performed | Pathologist | | | | | At | Signature | + + + + + + | Glucose, | 76Comment: Testing | 65 - 99 mg/dL | [facility] | | | POC | performed at [facility];[address] | | LABORATORY | | | | [address];[place] | | | | | | [address] | | | | + + + + + + + + | Specimen | + + | | + + + + + + + | Performing | Address | City/State/Zipcode | Phone Number | | Organization | | | | + + + + + | [facility] | [address] | [place] [address] | [phone] | + + + + + POC Glucose (01/08/2019 7:35 AM PST) + + + + + + | Component | Value | Ref Range | Performed | Pathologist | | | | | At | Signature | + + + + + + | Glucose, | 74Comment: Testing | 65 - 99 mg/dL | [facility] | | | POC | performed at [facility];[address] | | LABORATORY | | | | [address];[place] | | | | | | [address] | | | | + + + + + + + + | Specimen | + + | | + + + + + + + | Performing | Address | City/State/Zipcode | Phone Number | | Organization | | | | + + + + + | [facility] | [address] | [place] [address] | [phone] | + + + + + Comprehensive [...] 6 (L)Comment: GFR <60: | >60 | [facility] | | | GFR | CHRONIC [...] Center, | | | | | | [place] [address] | | | | + + + + + + + + | Specimen | + + | Blood | + + + + + + + | Performing | Address | City/State/Zipcode | Phone Number | | Organization | | | | + + + + + | [facility] | [address] | [place] [address] | [phone] | + + + + + CBC [...] | | | | | [place] [address] | | | | + + + + + + + + | Specimen | + + | Blood | + + + + + + + | Performing | Address | City/State/Zipcode | Phone Number | | Organization | | | | + + + + + | [facility] | [address] | [place] [address] | [phone] | + + + + + POC Glucose (01/07/2019 9:07 PM PST) + + + + + + | Component | Value | Ref Range | Performed | Pathologist | | | | | At | Signature | + + + + + + | Glucose, | 108 (H)Comment: Testing | 65 - 99 mg/dL | [facility] | | | POC | performed at [facility];[address] | | LABORATORY | | | | [address];[place] | | | | | | [address] | | | | + + + + + + + + | Specimen | + + | | + + + + + + + | Performing | Address | City/State/Zipcode | Phone Number | | Organization | | | | + + + + + | [facility] | [address] | [place] [address] | [phone] | + + + + + POC [...] | | | POC | performed at [facility];[address] | | LABORATORY | | | | [address];[place] | | | | | | [address] | | | | + + + + + + + + | Specimen | + + | | + + + + + + + | Performing | Address | City/State/Zipcode | Phone Number | | Organization | | | | + + + + + | [facility] | [address] | [place] [address] | [phone] | + + + + + CT [...] adenopathy. Upper Abdomen: The | | | [place] kidneys are atrophic. There is a small [...] No adenopathy. | | Upper Abdomen: The [place] kidneys are atrophic. There is a small [...] | | | POC | performed at [facility];[address] | | LABORATORY | | | | [address];[place], [place] | | | | | | [address] | | | | + + + + + + + + | Specimen | + + | | + + + + + + + | Performing | Address | City/State/Zipcode | Phone Number | | Organization | | | | + + + + + | [facility] | [address] | [place] [address] | [phone] | + + + + + Hepatitis [...] | | LABORATORY | | | | [facility], [address] | | | | | | [place] | | | | | | [address] | | | | + + + + + + + + | Specimen | + + | Blood | + + + + + + + | Performing | Address | City/State/Zipcode | Phone Number | | Organization | | | | + + + + + | [facility] | [address] | [place] [address] | [phone] | + + + + + POC Glucose (01/07/2019 7:14 AM PST) + + + + + + | Component | Value | Ref Range | Performed | Pathologist | | | | | At | Signature | + + + + + + | Glucose, | 83Comment: Testing | 65 - 99 mg/dL | [facility] | | | POC | performed at [facility];[address] | | LABORATORY | | | | [address];[place] | | | | | | [address] | | | | + + + + + + + + | Specimen | + + | | + + + + + + + | Performing | Address | City/State/Zipcode | Phone Number | | Organization | | | | + + + + + | [facility] | [address] | [place] [address] | [phone] | + + + + + XR [...] (500), | | | | | | editorial project manager JOSH CHAPPELL | | | | | | ([phone]) on 01/07/2019 | | | | | [...] | | | POC | performed at [facility];[address] | | LABORATORY | | | | [address];[place] | | | | | | [address] | | | | + + + + + + + + | Specimen | + + | | + + + + + + + | Performing | Address | City/State/Zipcode | Phone Number | | Organization | | | | + + + + + | [facility] | [address] | [place] [address] | [phone] | + + + + + POC Glucose (01/07/2019 2:08 AM PST) + + + + + + | Component | Value | Ref Range | Performed | Pathologist | | | | | At | Signature | + + + + + + | Glucose, | 67Comment: Testing | 65 - 99 mg/dL | [facility] | | | POC | performed at [facility];[address] | | LABORATORY | | | | [address];[place] | | | | | | [address] | | | | + + + + + + + + | Specimen | + + | | + + + + + + + | Performing | Address | City/State/Zipcode | Phone Number | | Organization | | | | + + + + + | [facility] | [address] | [place] [address] | [phone] | + + + + + Troponin I (01/07/2019 1:40 AM PST) + + + + + + | Component | Value | Ref Range | Performed | Pathologist | | | | | At | Signature | + + + + + + | Troponin I | 0.149 (H)Comment: 0.04 | 0.00 - 0.04 | [facility] | | | | ng/mL or [...] at | | | | | | [facility];[address] [place] [address] | | | | | | Blvd;[place] [address] | | | | + + + + + + + + | Specimen | + + | Blood | + + + + + + + | Performing | Address | City/State/Zipcode | Phone Number | | Organization | | | | + + + + + | [facility] | [address] | [place] [address] | [phone] | + + + + + Comprehensive [...] 38 | 10 - 65 U/L | [facility] | | | | | | LABORATORY | | + + + + + + | Estimated | 3 (L)Comment: GFR <60: | >60 | [facility] | | | GFR | CHRONIC [...] | | | | | performed at [facility];[address] | | | | | | [facility];[place], [place] | | | | | | [address] | | | | + + + + + + + + | Specimen | + + | Blood | + + + + + + + | Performing | Address | City/State/Zipcode | Phone Number | | Organization | | | | + + + + + | [facility] | [address] | [place] [address] | [phone] | + + + + + CBC [...] | | | | | | at [facility];[address] [place] [address] | | | | | | Blvd;[place] [address] | | | | | |NORMAL PLT MORPH | | | | | |Testing performed at [facility];[address] [place] [address];[place] [address] | | | | | | | | | | + + + + + + + + | Specimen | + + | Blood | + + + + + + + | Performing | Address | City/State/Zipcode | Phone Number | | Organization | | | | + + + + + | [facility] | [address] | [place] [address] | [phone] | + + + + + Thoracentesis [...] space: 6th Puncture method: | | | jgaj-qbt-fwxrrh catheter Needle size: 18 Catheter size: 18 [...] Chronic combined systolic and diastolic heart failure ([facility]) Chronic combined systolic | | and diastolic heart failure | + + | Dilated cardiomyopathy ([facility]) Other primary cardiomyopathies | + + | ESRD on hemodialysis ([facility]) End stage renal disease [...] anxiety with hemodialysis, | | | Starting [facility] 01/10/19 at 0952 | | + [...]
--- OUTSIDE RECORDS SUMMARY | ~2019-02-17 | XMS | Encounter Summary ---
Demographics + + + | Address | [address] | | | [place] [address] | + + + | Home Phone [...] | | | | | [place] [address] | | + + + + + | Thania Mallory | ECON | [address] | | | | | [place] [address] | | + + + + + | Deidra Weldon | ECON | [address] | | | | | [place] | | | | | [address] | | + + + + + [...] | purpura | [address] | [facility] [address] | | | | | ([facility]) [facility] | [place] | [address] | | | | | (Amelie | [address] | Mailcode: | | | | | nlein | [place], [place] | [address] | | | | | purpura) | [address] | [place] | | | | | nephritis | Phone: | [place], [place] | | | | | ([facility]) | [phone] | [address] | | | | | Hemodialysis | Fax: | Phone: | | | | | status | [phone] | [phone] | | | | | ([facility]) | | Fax: | | | | | Chronic | | [phone] | | | | | kidney | | | | | | | disease, | | | | | | | stage V | | | | | | | ([facility]) | | | | | [...] | | 2014 | Encounter | at [facility] [address] | | | | | | [place] Mailcode: | | | | | | [id number] | | | | | | [place], [place] | | | | | | [address] | | | | | | [phone] | | | +--------+ + + + [...] [place] | | | | | | [address] | | | | | | [phone] | | | | | | | [...] | e | 1:18 PM | MEDICARE [facility] | procedure are in the | [...] 2:35 PM PST Echocardiography Laboratory | | [address] | | [place] [address] | | ; | | [id number] | | | | Transthoracic Echocardiogram Report | | | | | | NAME: DARA WELDON Study Date: 01/20/2015 1:18:29 PM | | Order #: [id number] ACC #: [id number] | | | | | | : [...] on 01/20/2015 at 2:35:17 PM | | Automatic Folder Seamer: YARITZA KLINE RDEDNA | | | | | | cc: | | | | | | Modes utilized | | TTE 74074; Spectral Doppler 78962; Color flow Doppler 67131; | | | | | | | | Final | + + + + + + + | Performing | Address | City/State/Zipcode | Phone Number | | Organization | | | | + + + + + | [facility] | [address] | [place], [place] | | | CARDIOLOGY | [address] | [address] | | + + + + + [...]
--- OUTSIDE RECORDS SUMMARY | ~2019-02-17 | XMS | Encounter Summary ---
Demographics + + + | Address | [address] | | | [place] [address] | + + + | Home Phone [...] Author | [facility] | | | and Josephana | + + + | Organization | [facility] | [...] Team Providers + +------+ + | Care Inventory Auditor Name | Role | Phone | + +------+ + PCP | Unavailable | + +------+ + Encounter Details +--------+ + + + + | Date | Type | Department | Care Team | Description | +--------+ + + + + | 03/19/ | Hospital | [facility] | Bolivar Mcqueen MD | | | 2009 | Encounter | [facility] | | | | | | CENTER [address] | | | [address] [place], [place] | | | | | | [address] | | | | | | [phone] | | | +--------+ + + + [...] | | | | | [place] [address] | | | | | | [phone] | | | | | | | | +--------+---------+ + + + documented as of this encounter Visit Diagnoses Not on filedocumented in this encounter"
--- OUTSIDE RECORDS SUMMARY | ~2019-02-17 | XMS | Encounter Summary ---
Demographics + + + | Address | [address] | | | [place] [address] | + + + | Home Phone [...] | | | | | [place] [address] | | + + + + + | Thania Mallory | ECON | [address] | | | | | [place] [address] | | + + + + + | Deidra Weldon | ECON | [address] | | | | | [place] | | | | | [address] | | + + + + + Care Team Providers + +------+ + | Care Director Manufacturing Engineering Name | Role | Phone | [...] | Summary | | | | [facility] | [facility] | | | | | Rd [place], [place] | [place], [place] | | | | | [address] | [address] | | | | | [phone] | | | +--------+ + + + [...] [place] | | | | | | [address] | | | | | | [phone] | | | | | | | | +--------+ + + + + documented as of this encounter Visit Diagnoses Not on filedocumented in this encounter"
--- OUTSIDE RECORDS SUMMARY | ~2019-02-17 | XMS | Encounter Summary ---
Demographics + + + | Address | [address] | | | [place] [address] | + + + | Home Phone [...] Author | [facility] | | | and [place]ana | + + + | Organization | [facility] | | [...] Team Providers + +------+ + | Care Planner Intern Name | Role | Phone | [...] Dx); Panic disorder | | | | [place], [place] | | | | | | [address] | | | | | | [phone] | | | +--------+ + + + [...] [place] | | | | | | [place] [address] | | | | | | [phone] | | | | | | | | +--------+---------+ + + + documented as of this encounter Visit Diagnoses + + | Diagnosis | + + | Generalized anxiety disorder - Primary | + + | Panic disorder Panic disorder without agoraphobia | + + documented in this encounter"
--- OUTSIDE RECORDS SUMMARY | ~2019-02-17 | XMS | Encounter Summary ---
Demographics + + + | Address | [address] | | | [place] [address] | + + + | Home Phone [...] Author | [facility] | | | and [place]ana | + + + | Organization | [facility] | [...] Providers + +------+ + | Care Automotive Parts Manager Name | Role | Phone | [...] NEPHROLOGY [address] | M, DO [address] | | | | | [address] | [place] | | | | | [place], [place] | [place], [place] | | | | | [address] | [address] | | | | | [phone] | | | +--------+ + + + [...] Jennings - 12/29/2016 3:48 PM PDTOutside records: [facility] drug utilization revie w form [...] | | | | | | [place] [address] | | | | | | [phone] | | | | | | | | +--------+---------+ + + + documented as of this encounter Visit Diagnoses Not on filedocumented in this encounter"
--- OUTSIDE RECORDS SUMMARY | ~2019-02-17 | XMS | Encounter Summary ---
Demographics + + + | Address | [address] | | | [place] [address] | + + + | Home Phone [...] | | | | | [place] [address] | | + + + + + | Thania Mallory | ECON | [address] | | | | | [place] [address] | | + + + + + | Deidra Weldon | ECON | [address] | | | | | [place] | | | | | [address] | | + + + + + Care Team Providers + +------+ + | Care Delivery Director Name | Role | Phone | [...] | | | | Dea Jane | [place], [place] | | | | | [place], [place] | [address] | | | | | [address] | | | | | | [phone] | | | +--------+ + + + [...] Denise | | | | | | [place] | | | | | | [address] | | | | | | [phone] | | | | | | | | +--------+ + + + + documented as of this encounter Visit Diagnoses Not on filedocumented in this encounter"
--- OUTSIDE RECORDS SUMMARY | ~2019-02-17 | XMS | Encounter Summary ---
Demographics + + + | Address | [address] | | | [place] [address] | + + + | Home Phone [...] [facility] | | | and [place] | + + + | Organization | [facility] [...] Providers + +------+ + | Care Senior Facilities Manager Name | Role | Phone | [...] + + | 01/23/ | Hospital | [facility] | Vivek Teran, | SOB (shortness of | | 2019 - | Encounter | [facility] ACUTE | MD Brooks aCputovd | breath) (Primary | | | | CARE FLOOR [address] | [place] [address] | Dx); ESRD needing | | 01/26/ | | [address] | [phone] | dialysis ([facility]); | | 2019 | | [place], [place] | | Chronic pleural | | | | [address] | Omar Hatch MD [address] | effusion; | | | | [phone] | [address] | Noncompliance with | | | | | [place] [address] | renal dialysis | | | | | [phone] | ([facility]); Acute | | | | | | respiratory | | | | | Sotero Reinoso MD | distress; Anemia in | | | | | [address] | ESRD (end-stage | | | | | [place], [place] | renal disease) | | | | | [address] | ([facility]); At high risk | | | | | | for electrolyte | | | | | Usha Martínez MD | imbalance; ESRD on | | | | | [address] | hemodialysis ([facility]); | | | | | [place] [address] | Hyperphosphatemia; | | | | | [phone] | Noncompliance; | | | | | [...] note might be different from pierre coleman. [facility] Service: Hospitalist Discharge Summary Date of [...] CHEST AP PORTABLE (01/07/2019); CHEST TWO VIEWS 69224 (01/06/2019); XR CHEST AP PORTABLE (12/13/2018); FINDINGS: [...] CHEST AP PORTABLE (01/07/2019); CHEST TWO VIEWS 11207 (01/06/2019); FINDINGS: Mild cardiomegaly. No pneumothorax. Interstitial [...] MUSE READ ONLY, -COMPUTER (500), editor magazine Luciano, Daniela (18) on 01/24/2019 5:16: 19 [...] dialysis access ([facility]) 2014 Congestive heart failure (HCC) ESRD (end stage renal disease) (HCC) HSP (Henoch-Schonlein purpura) nephritis ([facility]) 1987 Hypertension Pericardial effusion without cardiac tamponade 11/07/2018 Past Surgical History: Procedure Laterality Date ABDOMEN SURGERY AV FISTULA REPAIR 02/24/2014 LEFT Radical Cephalic Fistula Creation; Laterality: Left; Surgeon: Blake Chavarria MD ; Location: [facility] AV FISTULA REPAIR Left 03/07/2014 Procedure: AV FISTULA - GRAFT REPAIR/REVISION; Surgeon: Rik Simon MD; Location: [facility] OR; Service: Vascular; Laterality: Left; biopsy of kidney age 10 DIALYSIS FISTULA CREATION 04/08/2014 Procedure: DIALYSIS CATHETER - INSERTION; Surgeon: Rik Simon MD; Location: [facility] ; Service: Vascular; Laterality: N/A; tunneled catheter.br hemodialysis catheter KIDNEY BIOPSY Left 2003 OTHER SURGICAL HISTORY LAPAROSCOPIC PERITONEAL DIALYSIS CATHETER INSERTION - x2 OTHER SURGICAL HISTORY Right 07/2013 LAPAROSCOPIC PERITONEAL DIALYSIS CATHETER INSERTION - current dialysis access MWF dialysis OTHER SURGICAL HISTORY Left 06/24/2014 SUPERFICIALIZATION OF AV FISTULA - Procedure: AV FISTULA - SUPERFICIALIZATION; Surgeon: Emanuel Simon MD; Location: [facility] OR; Service: Vascular; Laterality: Left; OTHER SURGICAL HISTORY Left 04/08/2014 AV FISTULA PLACEMENT - Procedure: AV FISTULA; Surgeon: Rik Simon MD; Location: [facility]; Service: Vascular; Laterality: Left; cephalic OTHER SURGICAL HISTORY Left 03/07/2014 DECLOT GRAFT - Procedure: GRAFT - DECLOT; Surgeon: Rik Simon MD; Location: [facility] OR ; Service: Vascular; Laterality: Left; [...] file. Follow up: Jonathan Alonso MD [address] [place] [address] Schedule an appointment as soon as possible [...] Chronic pleural effusion [J90] Recommendations: No acute PRIVATE CHEF indication Management of the right pleural effusion [...] [address] | | | | | | [place] [address] | | | | | | [phone] | | | | | | | [...] R?MRN: | | | | | | [id number] | | | [id number] | | | riteri | | | [...] | | | St. | | | [place] | | | y | | | [...] | | | St. | | | [place] | | | y | | | [...] | | | St. | | | [place] | | | y | | | [...] | | | St | | | [place] | | | y | | | [...] St | | | | | | [place] | | | y | | | [...] | | | St. | | | [place] | | | y | | | [...] | | | St. | | | [place] | | | y H. | | [...] | | | St. | | | [place] | | | y H. | | [...] | | | St. | | | [place] | | | y H. | | [...] | | | St. | | | [place] | | | y H. | | [...] | | | St. | | | [place] | | | y H. | | [...] | | | St. | | | [place] | | | y H. | | [...] | | | MD | | | Deputy City Clerk | | | al | | | [...] | | | f-f1ab | | | [id number] | | | eb | | | [...] Testing | 1.7 - 2.4 mg/dL | [facility] | | | | performed at L, [address] | | LABORATORY | | | | [facility], | | | | | | [place] [address] | | | | + + + + + + + + | Specimen | + + | | + + + + + + + | Performing | Address | City/State/Zipcode | Phone Number | | Organization | | | | + + + + + | [facility] | [address] | [place] [address] | [phone] | + + + + + CBC [...] [place], | | | | | | [place] [address] | | | | + + + + + + + + | Specimen | + + | | + + + + + + + | Performing | Address | City/State/Zipcode | Phone Number | | Organization | | | | + + + + + | [facility] | [address] | [place] [address] | [phone] | + + + + + Renal [...] | | | | | performed at [facility], [address] | | | | | | [address] [facility], | | | | | | [place] [address] | | | | + + + + + + + + | Specimen | + + | Blood | + + + + + + + | Performing | Address | City/State/Zipcode | Phone Number | | Organization | | | | + + + + + | [facility] | [address] | [place] [address] | [phone] | + + + + + Magnesium (01/25/2019 5:59 AM PST) + + + + + + | Component | Value | Ref Range | Performed | Pathologist | | | | | At | Signature | + + + + + + | Magnesium | 2.3Comment: Testing | 1.7 - 2.4 mg/dL | [facility] | | | | performed at [facility], [address] | | LABORATORY | | | | [address], | | | | | | [place] [address] | | | | + + + + + + + + | Specimen | + + | | + + + + + + + | Performing | Address | City/State/Zipcode | Phone Number | | Organization | | | | + + + + + | [facility] | [address] | [place] [address] | [phone] | + + + + + CBC [...] | | | | | [place] [address] | | | | + + + + + + + + | Specimen | + + | | + + + + + + + | Performing | Address | City/State/Zipcode | Phone Number | | Organization | | | | + + + + + | [facility] | [address] [facility] | [place] [address] | [phone] | + + + + + Renal [...] | | | | | performed at [facility], [address] | | | | | | [address] [facility], | | | | | | [place] [address] | | | | + + + + + + + + | Specimen | + + | Blood | + + + + + + + | Performing | Address | City/State/Zipcode | Phone Number | | Organization | | | | + + + + + | [facility] | [address] | [place] [address] | [phone] | + + + + + Iron [...] | | | | | [place] [address] | | | | + + + + + + + + | Specimen | + + | Blood | + + + + + + + | Performing | Address | City/State/Zipcode | Phone Number | | Organization | | | | + + + + + | [facility] | [address] [facility] | [place] [address] | [phone] | + + + + + Ferritin [...] | | | | | [place] [address] | | | | + + + + + + + + | Specimen | + + | Blood | + + + + + + + | Performing | Address | City/State/Zipcode | Phone Number | | Organization | | | | + + + + + | [facility] | [address] | [place] [address] | [phone] | + + + + + Creatine [...] | | | | | [place] [address] | | | | + + + + + + | CK-MB | 0Comment: Testing | 0 - 3 % | [facility] | | | | performed by [facility], | | LABORATORY | | | | [address], | | | | | | [place] [address] | | | | + + + + + + | CK-BB | 0Comment: Testing | 0 % | [facility] | | | | performed by [facility], | | LABORATORY | | | | [address], | | | | | | [facility] [address] | | | | + + + + + + | CK, Total | 156Comment: Testing | 24 - 173 U/L | [facility] | | | | performed at [facility], | | LABORATORY | | | | [address], [address], | | | | | | [place] [address] | | | | + + + + + + | CK-MACRO | 0 | Not Observed % | [facility] | | | TYPE 1 | | | LABORATORY | | + + + + + + | CK-MACRO | 0Comment: Testing | Not Observed % | [facility] | | | TYPE II | performed by [facility], | | LABORATORY | | | | [address] [facility], | | | | | | [facility] [address] | | | | + + + + + + + + | Specimen | + + | Blood | + + + + + + + | Performing | Address | City/State/Zipcode | Phone Number | | Organization | | | | + + + + + | [facility] | [address] | [place] [address] | [phone] | + + + + + Phosphorus (01/24/2019 5:53 AM PST) + + + + + + | Component | Value | Ref Range | Performed | Pathologist | | | | | At | Signature | + + + + + + | Phosphorus | 8.6 (H)Comment: Testing | 2.3 - 4.8 mg/dL | [facility] | | | | performed at [facility], [address] | | LABORATORY | | | | [address], | | | | | | [place] [address] | | | | + + + + + + + + | Specimen | + + | Blood | + + + + + + + | Performing | Address | City/State/Zipcode | Phone Number | | Organization | | | | + + + + + | [facility] | [address] | [place] [address] | [phone] | + + + + + Magnesium (01/24/2019 5:53 AM PST) + + + + + + | Component | Value | Ref Range | Performed | Pathologist | | | | | At | Signature | + + + + + + | Magnesium | 2.6 (H)Comment: Testing | 1.7 - 2.4 mg/dL | [facility] | | | | performed at [address], [address] | | LABORATORY | | | | [address], | | | | | | [place] [address] | | | | + + + + + + + + | Specimen | + + | Blood | + + + + + + + | Performing | Address | City/State/Zipcode | Phone Number | | Organization | | | | + + + + + | [facility] | [address] | [place] [address] | [phone] | + + + + + Basic [...] | 9.7 | 8.5 - 10.5 | [facility] | | | | | mg/dL | LABORATORY | | + + + + + + | Estimated | 4 (L)Comment: GFR <60: | >60 | [facility] | | | GFR [...] | | | | | performed at [facility], [address] | | | | | | [facility], | | | | | | [place] [address] | | | | + + + + + + + + | Specimen | + + | Blood | + + + + + + + | Performing | Address | City/State/Zipcode | Phone Number | | Organization | | | | + + + + + | [facility] | [address] | [place] [address] | [phone] | + + + + + CBC [...] Blvd, | | | | | | [place] [address] | | | | | |Testing performed at [facility], [address], [place] [address] | | | | | | | | | | + + +---- + + + + + | Specimen | + + | Blood | + + + + + + + | Performing | Address | City/State/Zipcode | Phone Number | | Organization | | | | + + + + + | [facility] | [address] | [place] [address] | [phone] | + + + + + Troponin I (01/24/2019 5:53 AM PST) + + + + + + | Component | Value | Ref Range | Performed | Pathologist | | | | | At | Signature | + + + + + + | Troponin I | 0.228 (H)Comment: 0.04 | 0.00 - 0.04 | [facility] | | | | [...] at | | | | | | [facility];[address] [place] [address] | | | | | | [facility];[place] [address] | | | | + + + + + + + + | Specimen | + + | Blood | + + + + + + + | Performing | Address | City/State/Zipcode | Phone Number | | Organization | | | | + + + + + | [facility] | [address] | [place] [address] | [phone] | + + + + + XR [...] CHEST AP PORTABLE (01/07/2019); CHEST TWO VIEWS 67803 (01/06/2019); | | | FINDINGS: Mild cardiomegaly. [...] PORTABLE (01/07/2019); CHEST | | TWO VIEWS 30723 (01/06/2019); | | | | FINDINGS: | [...] | | | | | Blvd;[place] [address] | | | | + + + + + + + + | Specimen | + + | Blood | + + + + + + + | Performing | Address | City/State/Zipcode | Phone Number | | Organization | | | | + + + + + | [facility] | [address] | [place] [address] | [phone] | + + + + + Phosphorus (01/23/2019 11:26 PM PST) + + + + + + | Component | Value | Ref Range | Performed | Pathologist | | | | | At | Signature | + + + + + + | Phosphorus | 7.9 (H)Comment: Testing | 2.3 - 4.8 mg/dL | [facility] | | | | performed at [facility];[address] | | LABORATORY | | | | [address];[place], [place] | | | | | | [address] | | | | + + + + + + + + | Specimen | + + | Blood | + + + + + + + | Performing | Address | City/State/Zipcode | Phone Number | | Organization | | | | + + + + + | [facility] | [address] | [place] [address] | [phone] | + + + + + Troponin I (01/23/2019 11:26 PM PST) + + + + + + | Component | Value | Ref Range | Performed | Pathologist | | | | | At | Signature | + + + + + + | Troponin I | 0.169 (H)Comment: 0.04 | 0.00 - 0.04 | [facility] | | | | [...] at | | | | | | [facility];[address] | | [address];[place] [address] | | | | + + + + + + + + | Specimen | + + | Blood | + + + + + + + | Performing | Address | City/State/Zipcode | Phone Number | | Organization | | | | + + + + + | [facility] | [address] | [place] [address] | [phone] | + + + + + Comprehensive [...] | | | | | performed at [facility];[address] | | | | | | [facility];[place], [place] | | | | | | [address] | | | | + + + + + + + + | Specimen | + + | Blood | + + + + + + + | Performing | Address | City/State/Zipcode | Phone Number | | Organization | | | | + + + + + | [facility] | [address] | [place] [address] | [phone] | + + + + + CBC [...] | LABORATORY | | | | [place];[address] [facility] | | | | | | Blvd;[place] [address] | | | | + + + + + + + + | Specimen | + + | Blood | + + + + + + + | Performing | Address | City/State/Zipcode | Phone Number | | Organization | | | | + + + + + | [facility] | [address] | [place] [address] | [phone] | + + + + + XR [...] (01/07/2019); CHEST TWO | | | VIEWS 42409 (01/06/2019); XR CHEST AP PORTABLE (12/13/2018); | [...] CHEST AP PORTABLE (01/07/2019); CHEST TWO VIEWS 05126 (01/06/2019); XR | | CHEST AP PORTABLE [...] | | | | | ONLY, -COMPUTER (245), | | | | | | editor magazine Daniela Luciano | | | | | [...] correct | | | patient, procedure, equipment, direct support specialist and site/side marked as | | | [...] space: 6th Puncture method: | | | [id number] catheter Number of attempts: 1 Drainage amount: [...] + + | Noncompliance with renal dialysis ([facility]) Noncompliance with renal dialysis | + + | Acute respiratory distress Other pulmonary insufficiency, not elsewhere classified | + + | Anemia in ESRD (end-stage renal disease) ([facility]) Anemia in chronic kidney disease | + + | At high risk for electrolyte imbalance | + + | ESRD on hemodialysis ([facility]) End stage renal disease | + + [...] | | | | | dose on [facility] 01/24/19 at 0900 | | AM [...] | | | | | | Starting [facility] 01/24/19 at 0304 | | | [...] | | Arm | | Intravenous, ONCE, [facility] 01/24/19 | | AM PST | | | | | at 0125, For 1 dose | | | | | | + +-------+ +--------+---+--------+ +---+---+ | | | +---+---+ + +-------+ +--------+---+---+ | HYDROmorphone (DILAUDID) | Given | 01/25/20 | 0.5 mg | | | | injection 0.5 mg 0.5 mg, | | 19 1:13 | | | | | Intravenous, ONCE, [facility] 01/24/19 | | PM PST | | | | | at 1215, For 1 dose | | | | | | + +-------+ +--------+---+---+ +---+---+ | | | +---+---+ + +-------+ +------+---+---+ | HYDROmorphone (DILAUDID) | Given | 01/25/20 | 1 mg | | | | injection 1 mg 1 mg, | | 19 4:20 | | | | | Intravenous, ONCE, [facility] 01/24/19 | | AM PST | [...] | | | DAILY, First dose on [facility] 01/24/19 | | | at 1430, [...] 19 1:46 | | | | | [facility] 01/24/19 at 0030, For 1 dose [...] PST | | | | | Starting [facility] 01/24/19 at 0355, | | | [...] AM PST | | | | | [facility] 01/24/19 at 0630, Do not cut [...] | | Arm | | Intravenous, ONCE, [facility] 01/24/19 | | AM PST | [...] | | | | | | | [facility] 01/24/19 at 0800, Do not cut [...] - PRN, Hypotension, | | | Starting [facility] 01/24/19 at 0833, | | | [...] | | | | | dose on [facility] 01/24/19 at 0900, | | | [...]
--- OUTSIDE RECORDS SUMMARY | ~2019-02-17 | XMS | Encounter Summary ---
Demographics + + + | Address | [address] | | | [place] [address] | + + + | Home Phone [...] | | | | | [place] [address] | | + + + + + | Thania Mallory | ECON | [address] | | | | | [place] [address] | | + + + + + | Deidra Weldon | ECON | [address] | | | | | [place] | | | | | [address] | | + + + + + Care Team Providers + +------+ + | Care Shift Commander Name | Role | Phone | + [...] | list) | | | | [facility] | [facility] | | | | | Rd [place], [place] | [place], [place] | | | | | [address] | [address] | | | | | [phone] | | | +--------+ + + + [...] Denise | | | | | | [place], [place] | | | | | | [address] | | | | | | [phone] | | | | | | | | +--------+ + + + + documented as of this encounter Visit Diagnoses Not on filedocumented in this encounter"
--- OUTSIDE RECORDS SUMMARY | ~2019-02-17 | XMS | Encounter Summary ---
Demographics + + + | Address | [address] | | | [place] [address] | + + + | Home Phone [...] [facility] | | | and [place] | + + + | Organization | [facility] | | | and [...] Team Providers + +------+ + | Care Green Marketing Analyst Name | Role | Phone | [...] NEPHROLOGY [address] | M, DO [address] | | | | | [address] | [place] | | | | | [place], [place] | [place], [place] | | | | | [address] | [address] | | | | | [phone] | | | +--------+ + + + [...] PM PDTManually faxed demographic sheet, copy of Verbling cards, progress note from 04/28/14 and 02/24/14 [...] [address] | | | | | | [place] [address] | | | | | | [phone] | | | | | | | | +--------+---------+ + + + documented as of this encounter Visit Diagnoses Not on filedocumented in this encounter"
--- OUTSIDE RECORDS SUMMARY | ~2019-02-17 | XMS | Encounter Summary ---
Demographics + + + | Address | [address] | | | [place] [address] | + + + | Home Phone [...] Author | [facility] | | | and Josephana | + + + | Organization | [facility] [...] Providers + +------+ + | Care Lean Coach Name | Role | Phone | [...] NEPHROLOGY [address] | M, DO [address] | | | | | [address] | [place] | | | | | [place], [place] | [place], [place] | | | | | [address] | [address] | | | | | [phone] | | | +--------+ + + + [...] [place] | | | | | | [facility] [address] | | | | | | [phone] | | | | | | | | +--------+---------+ + + + documented as of this encounter Visit Diagnoses Not on filedocumented in this encounter"
--- OUTSIDE RECORDS SUMMARY | ~2019-02-17 | XMS | Encounter Summary ---
Demographics + + + | Address | [address] | | | [place] [address] | + + + | Home Phone [...] Author | [facility] | | | and Josephana | + + + | Organization | [facility] [...] Providers + +------+ + | Care Manager Advanced Name | Role | Phone | + +------+ + PCP | Unavailable | + +------+ + Encounter Details +--------+ + + + + | Date | Type | Department | Care Team | Description | +--------+ + + + + | 08/31/ | Hospital | [facility] | Conversion | ESRD (end stage | | 2016 | Encounter | CENTER CV INTRA OP | Transaction, | renal disease) (HCC) | | | | [address] | Provider Unknown | | | | | [place], [place] | | | | | | [phone] | (Fax) | | | | | [phone] | Doyle Diaz MD | | +--------+ [...] E | | | | | | [place] [address] | | | | | | [phone] | | | | | | | [...] | 2. IR ANGIOPLASTY AV FISTULA VENOUS CORNER FORMER: Doyle Diaz MD | | | CONSENT: [...] | | Over a guidewire, a 4 [place] angled catheter was advanced and | | [...] | ANGIOPLASTY: Over a guidewire, a 6 [place] sheath was advanced | | | and [...] IR ANGIOPLASTY AV | | FISTULA VENOUS CORNER FORMER: Doyle Diaz MD CONSENT: The risks, benefits [...] micropuncture needle. Over a guidewire, a 4 [place] angled catheter was | | advanced and [...] appears patent. ANGIOPLASTY:Over a guidewire, a 6 [place] sheath was | | advanced and positioned [...] AM | |Over a guidewire, a 6 [place] sheath was advanced and positioned into the [...] | 2. IR ANGIOPLASTY AV FISTULA VENOUS CORNER FORMER: Doyle Diaz MD | | | CONSENT: [...] | | Over a guidewire, a 4 [place] angled catheter was advanced and | | [...] | ANGIOPLASTY: Over a guidewire, a 6 [place] sheath was advanced | | | and [...] IR ANGIOPLASTY AV | | FISTULA VENOUS CORNER FORMER: Doyle Diaz MD CONSENT: The risks, benefits [...] micropuncture needle. Over a guidewire, a 4 [place] angled catheter was | | advanced and [...] appears patent. ANGIOPLASTY:Over a guidewire, a 6 [place] sheath was | | advanced and positioned [...] AM | |Over a guidewire, a 6 [place] sheath was advanced and positioned into the [...] | | | | performed at [facility];888 | mmol/L | LAB | | | | [address];[place], [place] | | | | | | [address] | | | | + + + [...]
--- OUTSIDE RECORDS SUMMARY | ~2019-02-17 | XMS | Encounter Summary ---
Demographics + + + | Address | [address] | | | [place] [address] | + + + | Home Phone [...] | Author | [facility] | | | and Josephana | + + + | Organization | [facility] | | | and Josephana [...] Team Providers + +------+ + | Care Jeweler Apprentice Name | Role | Phone | [...] + + | 01/07/ | Hospital | [facility] | Florian Nelson, | Hyperkalemia | | 2019 - | Encounter | [facility] | [address] | (Primary Dx); ESRD | | | | CARE FLOOR [address] | [place] [address] | needing dialysis | | 01/10/ | | [address] | [phone] | ([facility]); Acute | | 2019 | | [place], [place] | | respiratory | | | | [address] | Herccristiana, Megan, DO | distress; Recurrent | | | | [phone] | [address] | right pleural | | | | | [place] [address] | effusion; Anemia in | | | | | [phone] | ESRD (end-stage | | | | | | renal disease) | | | | | Nicholas Sutton MD | ([facility]); At high risk | | | | | [address] | for electrolyte | | | | | [place] [address] | imbalance; Chronic | | | | | [phone] | 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 | | | | | Piedad Mosquera MD | failure ([facility]); | | | | | [address] | Dilated | | | | | [place] [address] | cardiomyopathy | | | | | [phone] | ([facility]); ESRD on | | | | | | hemodialysis ([facility]); | | | | | Paty Kline DO | Noncompliance; | | | | | [address] | Uncontrolled | | | | | [place] [address] | hypertension | | | | | [phone] | | | | | | | [...] a refill from your regular physician or pipe cleaner. We are always happy to be a [...] the advice of your doctor or health health care manager. A special MedGuide will be given to you by the pharmacist with each prescription and refill . Be sure to read this information carefully each time. Talk to your tax expert regarding the use of this medicine in children. Special care may be needed. What side effects may I notice from receiving this medicine? Side effects that you should report to your doctor or health health care manager as soon as p ossible: allergic reactions [...] attention (report to your doctor or health health care manager if they continue or are bothersome): dizziness [...] this medicine? Tell your doctor or health health care manager if your symptoms do not start to [...] dying should be reported to your health health care manager right away. NOTE:This sheet is a summary. [...] was completed later after rounds. Dictation software, [employer], was used which may contain error for [...] Nereida Cole RN - 01/09/2019 1:30 PM [id number]- Pt c/o chest pain rated 9/10, described [...] orders at this time, however EKG ordered. technical advisor called and en route. 1340- EKG shows [...] was completed later after rounds. Dictation software, [employer], was used which may contain error for [...] Kline DO - 01/09/2019 8:20 AM PST [facility] Adult Hospitalist Progress Note Hospital [...] Hyperkalemia: -Treated in the emergency room at [facility] that he had, potassium now wnl [...] of transfusion at this time -Epogen per pipe cleaner GI and DVT prophylaxis Paty Kline DO [...] was completed later after rounds. Dictation software, [employer], was used which may contain error for [...] DO Paty - 01/08/2019 7:50 AM PST [facility] Adult Hospitalist Progress Note Hospital [...] Hyperkalemia: -Treated in the emergency room at [facility] that he had, potassium now 5.8 [...] of transfusion at this time -Epogen per pipe cleaner Hypoglycemia: -Likely secondary to insulin given for her hyperkalemia and decrease PO intake -Hypoglycemic protocol GI and DVT prophylaxis Paty Kline DO 01/08/2019 Piedad Vega MD - 01/07/2019 7:14 AM PST [facility] Service: Hospitalist Progress Note Hospital Day: LOS: 0 days SUBJECTIVE Patient Summary: From HPI Dr. Martínez 01/07/19 The patient is a 23 y.o. female with significant past medical history of HSP nephritis, rig ht pleural effusions recurrent, thoracentesis, bacteremia, clotted hemodialysis catheter, no ncompliance, asthma who presents transferred from [facility] with hyperkalemia, hyperte nsion noncompliant with [...] life. Patient was treated for hyperkalemia in [facility] as her potassium was 6.8. The data from [facility] was a chest x-ray which shows [...] for input(s): IRON, TIBC, PCTSAT, FERRITIN, TSH, [id number], FOLATE in the last 168 hours. No [...] Hyperkalemia: -Treated in the emergency room at [facility] that he had, potassium now 5.8 [...] of transfusion at this time -Epogen per pipe cleaner Hypoglycemia: -Likely secondary to insulin given for [...] | | | | | | [place] [address] | | | | | | [phone] | | | | | | | [...] | | POC | performed at [facility];[address] | | LABORATORY | | | | [address];[place], [place] | | | | | | [address] | | | | + + + + + + + + | Specimen | + + | | + + + + + + + | Performing | Address | City/State/Zipcode | Phone Number | | Organization | | | | + + + + + | [facility] | [address] | [place] [address] | [phone] | + + + + + POC [...] | | POC | performed at [facility];[address] | | LABORATORY | | | | [address];[place] | | | | | | [address] | | | | + + + + + + + + | Specimen | + + | | + + + + + + + | Performing | Address | City/State/Zipcode | Phone Number | | Organization | | | | + + + + + | [facility] | [address] | [place] [address] | [phone] | + + + + + CBC [...] | | | | performed at [facility];[address] | | LABORATORY | | | | [address];[place], [place] | | | | | | [address] | | | | + + + + + + + + | Specimen | + + | Blood | + + + + + + + | Performing | Address | City/State/Zipcode | Phone Number | | Organization | | | | + + + + + | [facility] | [address] | [place] [address] | [phone] | + + + + + Phosphorus (01/10/2019 7:03 AM PST) + + + + + + | Component | Value | Ref Range | Performed | Pathologist | | | | | At | Signature | + + + + + + | Phosphorus | 5.4 (H)Comment: Testing | 2.3 - 4.8 mg/dL | [facility] | | | | performed at [facility];[address] | | LABORATORY | | | | [address];[place], [place] | | | | | | [address] | | | | + + + + + + + + | Specimen | + + | Blood | + + + + + + + | Performing | Address | City/State/Zipcode | Phone Number | | Organization | | | | + + + + + | [facility] | [address] | [place] [address] | [phone] | + + + + + Magnesium (01/10/2019 7:03 AM PST) + + + + + + | Component | Value | Ref Range | Performed | Pathologist | | | | | At | Signature | + + + + + + | Magnesium | 2.0Comment: Testing | 1.7 - 2.4 mg/dL | [facility] | | | | performed at [facility];[address] | | LABORATORY | | | | [address];[place] | | | | | | [address] | | | | + + + + + + + + | Specimen | + + | Blood | + + + + + + + | Performing | Address | City/State/Zipcode | Phone Number | | Organization | | | | + + + + + | [facility] | [address] | [place] [address] | [phone] | + + + + + Basic [...] | | | | performed at [facility];[address] | | | | | | [facility];[place], [place] | | | | | | [address] | | | | + + + + + + + + | Specimen | + + | Blood | + + + + + + + | Performing | Address | City/State/Zipcode | Phone Number | | Organization | | | | + + + + + | [facility] | [address] | [place] [address] | [phone] | + + + + + POC Glucose (01/09/2019 9:10 PM PST) + + + + + + | Component | Value | Ref Range | Performed | Pathologist | | | | | At | Signature | + + + + + + | Glucose, | 141 (H)Comment: Testing | 65 - 99 mg/dL | [facility] | | | POC | performed at [facility];[address] | | LABORATORY | | | | [address];[place], [place] | | | | | | [address] | | | | + + + + + + + + | Specimen | + + | | + + + + + + + | Performing | Address | City/State/Zipcode | Phone Number | | Organization | | | | + + + + + | [facility] | [address] | [place] [address] | [phone] | + + + + + POC [...] | | POC | performed at [facility];[address] | | LABORATORY | | | | [address];[place], [place] | | | | | | [address] | | | | + + + + + + + + | Specimen | + + | | + + + + + + + | Performing | Address | City/State/Zipcode | Phone Number | | Organization | | | | + + + + + | [facility] | [address] | [place] [address] | [phone] | + + + + + XR [...] | | PORTABLE (01/07/2019); CHEST TWO VIEWS 61454 (01/06/2019); XR CHEST AP | | | [...] PORTABLE (01/07/2019); | | CHEST TWO VIEWS 98919 (01/06/2019); XR CHEST AP PORTABLE (12/13/2018); | [...] | | POC | performed at [facility];[address] | | LABORATORY | | | | [address];[place], [place] | | | | | | [address] | | | | + + + + + + + + | Specimen | + + | | + + + + + + + | Performing | Address | City/State/Zipcode | Phone Number | | Organization | | | | + + + + + | [facility] | [address] | [place] [address] | [phone] | + + + + + Comprehensive [...] | | | | performed at [facility];[address] | | | | | | [facility];[place], [place] | | | | | | [address] | | | | + + + + + + + + | Specimen | + + | Blood | + + + + + + + | Performing | Address | City/State/Zipcode | Phone Number | | Organization | | | | + + + + + | [facility] | [address] [facility] | [place] [address] | [phone] | + + + + + CBC [...] | | LABORATORY | | | | KM;[address] [place] [address] | | | | | | Blvd;[place] [address] | | | | + + + + + + + + | Specimen | + + | Blood | + + + + + + + | Performing | Address | City/State/Zipcode | Phone Number | | Organization | | | | + + + + + | [facility] | [address] | [place] [address] | [phone] | + + + + + POC Glucose (01/09/2019 7:50 AM PST) + + + + + + | Component | Value | Ref Range | Performed | Pathologist | | | | | At | Signature | + + + + + + | Glucose, | 161 (H)Comment: Testing | 65 - 99 mg/dL | [facility] | | | POC | performed at [facility];[address] | | LABORATORY | | | | [address];[place] | | | | | | [address] | | | | + + + + + + + + | Specimen | + + | | + + + + + + + | Performing | Address | City/State/Zipcode | Phone Number | | Organization | | | | + + + + + | [facility] | [address] | [place] [address] | [phone] | + + + + + POC Glucose (01/09/2019 6:19 AM PST) + + + + + + | Component | Value | Ref Range | Performed | Pathologist | | | | | At | Signature | + + + + + + | Glucose, | 88Comment: Testing | 65 - 99 mg/dL | [facility] | | | POC | performed at [facility];[address] | | LABORATORY | | | | [address];[place] | | | | | | [address] | | | | + + + + + + + + | Specimen | + + | | + + + + + + + | Performing | Address | City/State/Zipcode | Phone Number | | Organization | | | | + + + + + | [facility] | [address] | [place] [address] | [phone] | + + + + + POC [...] | | POC | performed at [facility];[address] | | LABORATORY | | | | [address];[place], [place] | | | | | | [address] | | | | + + + + + + + + | Specimen | + + | | + + + + + + + | Performing | Address | City/State/Zipcode | Phone Number | | Organization | | | | + + + + + | [facility] | [address] | [place] [address] | [phone] | + + + + + POC [...] | | POC | performed at [facility];[address] | | LABORATORY | | | | [address];[place] | | | | | | [address] | | | | + + + + + + + + | Specimen | + + | | + + + + + + + | Performing | Address | City/State/Zipcode | Phone Number | | Organization | | | | + + + + + | [facility] | [address] | [place] [address] | [phone] | + + + + + POC [...] | | POC | performed at [facility];[address] | | LABORATORY | | | | [address];[place] | | | | | | [address] | | | | + + + + + + + + | Specimen | + + | | + + + + + + + | Performing | Address | City/State/Zipcode | Phone Number | | Organization | | | | + + + + + | [facility] | [address] | [place] [address] | [phone] | + + + + + POC [...] | | POC | performed at [facility];[address] | | LABORATORY | | | | [address];[place] | | | | | | [address] | | | | + + + + + + + + | Specimen | + + | | + + + + + + + | Performing | Address | City/State/Zipcode | Phone Number | | Organization | | | | + + + + + | [facility] | [address] | [place] [address] | [phone] | + + + + + Comprehensive [...] 6 (L)Comment: GFR <60: | >60 | [facility] | | | GFR [...] Hospital, | | | | | | [place] [address] | | | | + + + + + + + + | Specimen | + + | Blood | + + + + + + + | Performing | Address | City/State/Zipcode | Phone Number | | Organization | | | | + + + + + | [facility] | [address] | [place] [address] | [phone] | + + + + + CBC [...] | | | | | [place] [address] | | | | + + + + + + + + | Specimen | + + | Blood | + + + + + + + | Performing | Address | City/State/Zipcode | Phone Number | | Organization | | | | + + + + + | [facility] | [address] | [place] [address] | [phone] | + + + + + POC Glucose (01/07/2019 9:07 PM PST) + + + + + + | Component | Value | Ref Range | Performed | Pathologist | | | | | At | Signature | + + + + + + | Glucose, | 108 (H)Comment: Testing | 65 - 99 mg/dL | [facility] | | | POC | performed at [facility];[address] | | LABORATORY | | | | [address];[place] | | | | | | [address] | | | | + + + + + + + + | Specimen | + + | | + + + + + + + | Performing | Address | City/State/Zipcode | Phone Number | | Organization | | | | + + + + + | [facility] | [address] | [place] [address] | [phone] | + + + + + POC [...] | | POC | performed at [facility];[address] | | LABORATORY | | | | [address];[place] | | | | | | [address] | | | | + + + + + + + + | Specimen | + + | | + + + + + + + | Performing | Address | City/State/Zipcode | Phone Number | | Organization | | | | + + + + + | [facility] | [address] | [place] [address] | [phone] | + + + + + CT [...] adenopathy. Upper Abdomen: The | | | [place] kidneys are atrophic. There is a small [...] No adenopathy. | | Upper Abdomen: The [place] kidneys are atrophic. There is a small [...] | | POC | performed at [facility];[address] | | LABORATORY | | | | [address];[place], [place] | | | | | | [address] | | | | + + + + + + + + | Specimen | + + | | + + + + + + + | Performing | Address | City/State/Zipcode | Phone Number | | Organization | | | | + + + + + | [facility] | [address] | [place] [address] | [phone] | + + + + + Hepatitis [...] | | LABORATORY | | | | [facility], [address] | | | | | | [place] | | | | | | [address] | | | | + + + + + + + + | Specimen | + + | Blood | + + + + + + + | Performing | Address | City/State/Zipcode | Phone Number | | Organization | | | | + + + + + | [facility] | [address] | [place] [address] | [phone] | + + + + + POC Glucose (01/07/2019 7:14 AM PST) + + + + + + | Component | Value | Ref Range | Performed | Pathologist | | | | | At | Signature | + + + + + + | Glucose, | 83Comment: Testing | 65 - 99 mg/dL | [facility] | | | POC | performed at [facility];[address] | | LABORATORY | | | | [address];[place] | | | | | | [address] | | | | + + + + + + + + | Specimen | + + | | + + + + + + + | Performing | Address | City/State/Zipcode | Phone Number | | Organization | | | | + + + + + | [facility] | [address] | [place] [address] | [phone] | + + + + + XR [...] | | | | | | editor farm journal JOSH CHAPPELL | | | | | | ([id number]) on 01/07/2019 | | | | | [...] | | POC | performed at [facility];[address] | | LABORATORY | | | | [address];[place] | | | | | | [address] | | | | + + + + + + + + | Specimen | + + | | + + + + + + + | Performing | Address | City/State/Zipcode | Phone Number | | Organization | | | | + + + + + | [facility] | [address] | [place] [address] | [phone] | + + + + + POC Glucose (01/07/2019 2:08 AM PST) + + + + + + | Component | Value | Ref Range | Performed | Pathologist | | | | | At | Signature | + + + + + + | Glucose, | 67Comment: Testing | 65 - 99 mg/dL | [facility] | | | POC | performed at [facility];[address] | | LABORATORY | | | | [...] + + + + + | [facility] | [address] | [place] [address] | [phone] | + + + + + Troponin I (01/07/2019 1:40 AM PST) + + + + + + | Component | Value | Ref Range | Performed | Pathologist | | | | | At | Signature | + + + + + + | Troponin I | 0.149 (H)Comment: 0.04 | 0.00 - 0.04 | [facility] | | | | [...] | | | | | | [facility];[address] [place] [address] | | | | | | Blvd;[place] [address] | | | | + + + + + + + + | Specimen | + + | Blood | + + + + + + + | Performing | Address | City/State/Zipcode | Phone Number | | Organization | | | | + + + + + | [facility] | [address] | [place] [address] | [phone] | + + + + + Comprehensive [...] 38 | 10 - 65 U/L | [facility] | | | | | | LABORATORY | | + + + + + + | Estimated | 3 (L)Comment: GFR <60: | >60 | [facility] | | | GFR [...] | | | | performed at [facility];[address] | | | | | | [facility];[place], [place] | | | | | | [address] | | | | + + + + + + + + | Specimen | + + | Blood | + + + + + + + | Performing | Address | City/State/Zipcode | Phone Number | | Organization | | | | + + + + + | [facility] | [address] | [place] [address] | [phone] | + + + + + CBC [...] | | | | | at [facility];[address] [place] [address] | | | | | | Blvd;[place] [address] | | | | | |NORMAL PLT MORPH | | | | | |Testing performed at [facility];[address] [place] [address];[place] [address] | | | | | | | | | | + + + + + + + + | Specimen | + + | Blood | + + + + + + + | Performing | Address | City/State/Zipcode | Phone Number | | Organization | | | | + + + + + | [facility] | [address] | [place] [address] | [phone] | + + + + + Thoracentesis [...] space: 6th Puncture method: | | | kvlt-tyb-wdigwv catheter Needle size: 18 Catheter size: 18 [...] in ESRD (end-stage renal disease) ([facility]) Anemia in chronic kidney disease | + + | At high risk for electrolyte imbalance | + + | Chronic combined systolic and diastolic heart failure ([facility]) Chronic combined systolic | | and diastolic heart failure | + + | Dilated cardiomyopathy ([facility]) Other primary cardiomyopathies | + + | ESRD on hemodialysis ([facility]) End stage renal disease | [...] anxiety with hemodialysis, | | | Starting [facility] 01/10/19 at 0952 | | + [...]
--- OUTSIDE RECORDS SUMMARY | ~2019-02-17 | XMS | Encounter Summary ---
Demographics + + + | Address | [address] | | | [place] [address] | + + + | Home Phone [...] | | | | | [place] [address] | | + + + + + | Thania Mallory | ECON | [address] | | | | | [place] [address] | | + + + + + | Deidra Weldon | ECON | [address] | | | | | [place] | | | | | [address] | | + + + + + Care Team Providers + +------+ + | Care Pipe Washer Name | Role | Phone | [...] with SSA) | | | | Rd [place], [place] | [place], [place] | | | | | [address] | [address] | | | | | [phone] | | | +--------+ + + + [...] Denise | | | | | | [place] | | | | | | [address] | | | | | | [phone] | | | | | | | | +--------+ + + + + documented as of this encounter Visit Diagnoses Not on filedocumented in this encounter"
--- OUTSIDE RECORDS SUMMARY | ~2019-02-17 | XMS | Encounter Summary ---
Demographics + + + | Address | [address] | | | [place] [address] | + + + | Home Phone [...] + | Author | [facility] | | | and [place] | + + + | Organization | [facility] | [...] Team Providers + +------+ + | Care Igniter Capper Name | Role | Phone | + [...] NEPHROLOGY [address] | M, DO [address] | | | | | [address] | [place] | | | | | [place], [place] | [place], [place] | | | | | [address] | [address] | | | | | [phone] | | | +--------+ + + + [...] contact with the dialysis staff in clinical rehab specialist on a frequent basis. Outpatient Prescriptions Marked [...] will be rechecked in 2 weeks. : [place] Fina documented in thi s encounter Plan [...] | | | | [place] [address] | | | | | | [phone] | | | | | | | | +--------+---------+ + + + documented as of this encounter Visit Diagnoses + + | Diagnosis | + + | ESRD (end stage renal disease) (HCC) - Primary End stage renal disease | + + documented in this encounter"
--- OUTSIDE RECORDS SUMMARY | ~2019-02-17 | XMS | Encounter Summary ---
Demographics + + + | Address | [address] | | | [place] [address] | + + + | Home Phone [...] | [facility] | | | and [place] | + + + | Organization | [facility] [...] Providers + +------+ + | Care Roller Skate Assembler Name | Role | Phone | [...] | Encounter | JOY | MD Emanuel [address] | | | | | [address] | [facility] | | | | | [address] | [place], [place] | | | | | [place], [place] | [address] | | | | | [address] | [phone] | | | | | [phone] | | | +--------+ + + + [...] | | | | | | [place] [address] | | | | | | [phone] | | | | | | | | +--------+---------+ + + + documented as of this encounter Visit Diagnoses Not on filedocumented in this encounter"
--- OUTSIDE RECORDS SUMMARY | ~2019-02-17 | XMS | Encounter Summary ---
Demographics + + + | Address | [address] | | | [place] [address] | + + + | Home Phone [...] | Author | [facility] | | | and [place] | + + + | Organization | [facility] [...] Team Providers + +------+ + | Care Wheelchair Van Operator First Responder Name | Role | Phone | + [...] + + | 02/24/ | Hospital | [facility] | Blake Chavarria | ESRD (end stage | | 2013 | Encounter | MED CTR OR INTRA OP | MD Antonieta, FACS 380 | renal disease) ([facility]) | | | | [address] | [facility] | (Primary Dx) | | | | [place] | [place] [address] | | | | | [address] | [phone] | | | | | [phone] | | | +--------+ + + + [...] might be different f rom the original. [facility] POST-OP INSTRUCTIONS: Arterio-Venous Fistula 1. [...] may interact with prescription medicines or other oqlq-oaa-qgavdbq (OTC) drugs. The FDA recommends reading OTC medication labels careful ly to clearly understand the list of active ingredients, directions, and any precautions to help avoid taking too muchacetaminophen. If you have questions, ask your pharmacist or [facility] care provider. Managing Nausea Some [...] or skin changes (rash, itching, or hives). 9946-[address] [employer] [address] [place] [address], [place] [address]. All righ ts reserved. This information is [...] [place] | | | | | | [place] [address] | | | | | | [phone] | | | | | | | [...] mL/min/1.73m2 | [facility] | | | TAJIK | (<18). | | MEDICAL | | [...] + | [facility] | [address] | [place], [place] | [phone] | | [facility] | | [address] | | | - LABORATORY | | | | + + + + + | [facility] | [address] | [place], [place] | | | [facility] | | [address] | | | - LABORATORY | | [...]
--- OUTSIDE RECORDS SUMMARY | ~2019-02-17 | XMS | Encounter Summary ---
Demographics + + + | Address | [address] | | | [place] [address] | + + + | Home Phone [...] | | | | | [place] [address] | | + + + + + | Thania Mallory | ECON | [address] | | | | | [place] [address] | | + + + + + | Deidra Weldon | ECON | [address] | | | | | [place] | | | | | [address] | | + + + + + Care Team Providers + +------+ + | Care Soil Science Teacher Name | Role | Phone [...] Requested (Drug | | | | [facility] | [facility] | screens) | | | | Rd [place], [place] | [facility] [place] | | | | | [address] | [address] | | | | | [phone] | | | +--------+ + + + [...] Denise | | | | | | [place] | | | | | | [address] | | | | | | [phone] | | | | | | | | +--------+ + + + + documented as of this encounter Visit Diagnoses Not on filedocumented in this encounter"
--- OUTSIDE RECORDS SUMMARY | ~2019-02-17 | XMS | Encounter Summary ---
Demographics + + + | Address | [address] | | | [place] [address] | + + + | Home Phone [...] Author | [facility] | | | and [place] | + + + | Organization | [facility] | | | [...] Team Providers + +------+ + | Care Insecticide Sprayer Name | Role | Phone | + [...] NEPHROLOGY [address] | M, DO [address] | | | | | [address] | [place] | | | | | [place], [place] | [place], [place] | | | | | [address] | [address] | | | | | [phone] | | | +--------+ + + + [...] [place] | | | | | | [place] [address] | | | | | | [phone] | | | | | | | | +--------+---------+ + + + documented as of this encounter Visit Diagnoses Not on filedocumented in this encounter"
--- OUTSIDE RECORDS SUMMARY | ~2019-02-17 | XMS | Encounter Summary ---
Demographics + + + | Address | [address] | | | [place] [address] | + + + | Home Phone [...] | | | | | [place] [address] | | + + + + + | Thania Mallory | ECON | [address] | | | | | [place] [address] | | + + + + + | Deidra Weldon | ECON | [address] | | | | | [place] | | | | | [address] | | + + + + + Care Team Providers + +------+ + | Care Wrapper Opener Name | Role | Phone | + [...] date) | | | | [address] [facility] | [facility] | | | | | Rd [place], [place] | [place], [place] | | | | | [address] | [address] | | | | | [phone] | | | +--------+ + + + [...] Denise | | | | | | [place], [place] | | | | | | [address] | | | | | | [phone] | | | | | | | | +--------+ + + + + documented as of this encounter Visit Diagnoses Not on filedocumented in this encounter"
--- OUTSIDE RECORDS SUMMARY | ~2019-02-17 | XMS | Encounter Summary ---
Demographics + + + | Address | [address] | | | [place] [address] | + + + | Home Phone [...] + | Author | [facility] | | | and [place] | + + + | Organization | [facility] | [...] Providers + +------+ + | Care Data Processing Specialist Name | Role | Phone [...] NEPHROLOGY [address] | MD [address] | | | | | [address] | [address] [place] | | | | | [place], [place] | [place] [address] | | | | | [address] | [phone] | | | | | [phone] | | | +--------+ + + + [...] [place] | | | | | | [place] [address] | | | | | | [phone] | | | | | | | | +--------+---------+ + + + documented as of this encounter Visit Diagnoses Not on filedocumented in this encounter"
--- OUTSIDE RECORDS SUMMARY | ~2019-02-17 | XMS | Encounter Summary ---
Demographics + + + | Address | [address] | | | [place] [address] | + + + | Home Phone [...] | Author | [facility] | | | and [place] | + + + | Organization | [facility] | | [...] Team Providers + +------+ + | Care Warehouse Supervisor 3Rd Shift Name | Role | Phone | + [...] | | [address] | [place] | | | | | [place], [place] | [place], [place] | | | | | [address] | [address] | | | | | [phone] | | | +--------+--------+ + + + [...] | | | | | [place] [address] | | | | | | [phone] | | | | | | | | +--------+---------+ + + + documented as of this encounter Visit Diagnoses Not on filedocumented in this encounter"
--- OUTSIDE RECORDS SUMMARY | ~2019-02-17 | XMS | Encounter Summary ---
Demographics + + + | Address | [address] | | | [place] [address] | + + + | Home Phone [...] | | | | | [place] [address] | | + + + + + | Thania Mallory | ECON | [address] | | | | | [place] [address] | | + + + + + | Deidra Weldon | ECON | [address] | | | | | [place] | | | | | [address] | | + + + + + Care Team Providers + +------+ + | Care Forming Tube Selector Name | Role | Phone | [...] (Dialysis | | | | [address] [place] | [address] | unit updated) | | | | [place], [place] | [facility] [place] | | | | | [address] | [address] | | | | | [phone] | [phone] | | | | | | | [...] Denise | | | | | | [place] | | | | | | [address] | | | | | | [phone] | | | | | | | | +--------+ + + + + documented as of this encounter Visit Diagnoses Not on filedocumented in this encounter"
--- OUTSIDE RECORDS SUMMARY | ~2019-02-17 | XMS | Encounter Summary ---
Demographics + + + | Address | [address] | | | [place] [address] | + + + | Home Phone [...] | | | | | [place] [address] | | + + + + + | Thania Mallory | ECON | [address] | | | | | [place] [address] | | + + + + + | Deidra Weldon | ECON | [address] | | | | | [place] | | | | | [address] | | + + + + + Care Team Providers + +------+ + | Care Boiler Room Helper Name | Role | Phone [...] Shun | | | | | [address] | [facility] | | | | | [place], [place] | [place] [address] | | | | | [address] | [phone] | | | | | | | [...] Denise | | | | | | [place], [place] | | | | | | [address] | | | | | | [phone] | | | | | | | | +--------+ + + + + documented as of this encounter Visit Diagnoses Not on filedocumented in this encounter"
--- OUTSIDE RECORDS SUMMARY | ~2019-02-17 | XMS | Encounter Summary ---
Demographics + + + | Address | [address] | | | [place] [address] | + + + | Home Phone [...] | Author | [facility] | | | and [place] | + + + | Organization | [facility] [...] + +------+ + | Care Talent Acquisition Sourcer Name | Role | Phone | + +------+ + PCP | Unavailable | + +------+ + Encounter Details +--------+ + + + + | Date | Type | Department | Care Team | Description | +--------+ + + + + | 04/08/ | Hospital | [facility] | Sudhakar Joy | | | 2009 | Encounter | JOY | MD Emanuel [address] | | | | | [address] | [facility] | | | | | [address] | [place], [place] | | | | | [place], [place] | [address] | | | | | [address] | [phone] | | | | | [phone] | | | +--------+ + + + [...] [place] | | | | | | [place] [address] | | | | | | [phone] | | | | | | | | +--------+---------+ + + + documented as of this encounter Visit Diagnoses Not on filedocumented in this encounter"
--- OUTSIDE RECORDS SUMMARY | ~2019-02-17 | XMS | Encounter Summary ---
Demographics + + + | Address | [address] | | | [place] [address] | + + + | Home Phone [...] | | | | | [place] [address] | | + + + + + | Thania Mallory | ECON | [address] | | | | | [place] [address] | | + + + + + | Deidra Weldon | ECON | [address] | | | | | [place] | | | | | [address] | | + + + + + Care Team Providers + +------+ + | Care Collar Cutter Name | Role | Phone | [...] [address] | | | | | [address] [facility] | [facility] | | | | | Rd [place], [place] | [place], [place] | | | | | [address] | [address] | | | | | [phone] | | | +--------+ + + + [...] | | | | | | [place] | | | | | | [address] | | | | | | [phone] | | | | | | | | +--------+ + + + + documented as of this encounter Visit Diagnoses Not on filedocumented in this encounter"
--- OUTSIDE RECORDS SUMMARY | ~2019-02-17 | XMS | Encounter Summary ---
Demographics + + + | Address | [address] | | | [place] [address] | + + + | Home Phone [...] | | | | | [place] [address] | | + + + + + | Thania Mallory | ECON | [address] | | | | | [place] [address] | | + + + + + | Deidra Weldon | ECON | [address] | | | | | [place] | | | | | [address] | | + + + + + Care Team Providers + +------+ + | Care Immigration Patrol Inspector Name | Role | Phone | [...] | | [address] [facility] | [facility] | | | | | Rd [place], [place] | [place], [place] | | | | | [address] | [address] | | | | | [phone] | | | +--------+ + + + [...] Denise | | | | | | [place] | | | | | | [address] | | | | | | [phone] | | | | | | | | +--------+ + + + + documented as of this encounter Visit Diagnoses Not on filedocumented in this encounter"
--- OUTSIDE RECORDS SUMMARY | ~2019-02-17 | XMS | Encounter Summary ---
Demographics + + + | Address | [address] | | | [place] [address] | + + + | Home Phone [...] Author | [facility] | | | and [place] | + + + | Organization | [facility] [...] Providers + +------+ + | Care Hardware Manager Name | Role | Phone | + +------+ + PCP | Unavailable | + +------+ + Encounter Details +--------+ + + + + | Date | Type | Department | Care Team | Description | +--------+ + + + + | 04/08/ | Hospital | [facility] | Rik Simon MD | | | 2015 | Encounter | [facility] | [address] | | | | | [address] | [place], [place] | | | | | [place], [place] | [address] | | | | | [address] | [phone] | | | | | [phone] | | | +--------+ + + + [...] 142 Date of Service: 04/08/141425 Status: Signed Fiberglass Grinder: Coral Amador RPH (Pharmacist) Clinical Pharmacy Note - Renal Dose Adjustment Dara Weldon 19 y.o. female Ht Readings from Last 1 Encounters: 04/08/14 1.676 m (5' 6") (75 %*, Z = 0.69) * Growth percentiles are based on [facility] 2-20 Years data. Wt Readings from Last 1 Encounters: 04/08/14 96.2 kg (212 lb 1.3 oz) (98 %*, Z = 2.12) * Growth percentiles are based on [facility] 2-20 Years data. CREATININE Date Value Ref Range Status 04/08/2014 8.68* 0.50 - 1.00 mg/dL Final Testing performed at [facility];[address] [place] [address];[place] [address] ESRD on HD Pharmacy to renally adjust medications per Dr. Simon Plan: No medications require dose adjustment for HD at this time. Pharmacy will continue to follow and adjust as appropriate. Pharmacist: Coral Amador 04/08/2014 2:25 PM onversio n Transaction, Provider Unknown - 04/08/2014 2:08 PM PSTFormatting of this note might be di fferent from the original. Nurse Progress Note by Cheyrl Rubalcava RN at 04/08/14 7790 Author: Cheryl Rubalcava RN Service: (none) Author Type: Registered Nurse Filed: 04/08/14 1443 Date of Service: 04/08/141407 Status: Signed Fiberglass Grinder: Cheryl Rubalcava RN (Registered Nurse) Pt and [...] 132 Date of Service: 04/08/141320 Status: Signed Fiberglass Grinder: Cheryl Rubalcava RN (Registered Nurse) Pt family [...] [address] | | | | | | [place] [address] | | | | | | [phone] | | | | | | | [...] LAB | | | | Blvd;[place] [address] | | | | + + + + + + | Antibody | NEGATIVE | | EXTERNAL | | | Screen | | | LAB | | + + + + + + | Antibody | Testing performed at | | EXTERNAL | | | Screen | [facility] | | LAB | | | | [address];[place] [address] | | | | + + + + + + | BB BAND | [id number] | | EXTERNAL | | | | | | LAB | | + + + + + + | BB BAND | Testing performed at | | EXTERNAL | | | | [facility] | | LAB | | | | [address];[place] [address] | | | | + + + [...] EXTERNAL | | | | performed at [facility];[address] | mmol/L | LAB | | | | [address];[place] | | | | | | [address] | | | | + + + + + + | K | 4.1Comment: SLT | 3.5 - 4.9 | EXTERNAL | | | | HEMOLYSISTesting | mmol/L | LAB | | | | performed at [facility];[address] | | | | | | [address];[place] | | | | | | [address] | | | | + + + + + + | Cl | 102Comment: Testing | 99 - 109 mmol/L | EXTERNAL | | | | performed at [facility];[address] | | LAB | | | | [address];[place] | | | | | | [address] | | | | + + + + + + | CO2 | 28Comment: Testing | 23 - 32 mmol/L | EXTERNAL | | | | performed at [facility];[address] | | LAB | | | | [address];[place] | | | | | | [address] | | | | + + + + + + | Anion Gap | 13Comment: Testing | 5 - 20 mmol/L | EXTERNAL | | | | performed at [facility];[address] | | LAB | | | | [address];[place] | | | | | | [address] | | | | + + + + + + | Glucose, | 87Comment: Testing | 65 - 99 mg/dL | EXTERNAL | | | Fasting | performed at [facility];[address] | | LAB | | | | [address] | | | | | | [address] | | | | + + + + + + | BUN | 32 (H)Comment: Testing | 8 - 25 mg/dL | EXTERNAL | | | | performed at [facility];[address] | | LAB | | | | [address];[place] | | | | | | [address] | | | | + + + + + + | Creatinine | 8.68 (H)Comment: Testing | 0.50 - 1.00 | EXTERNAL | | | | performed at [facility];888 | mg/dL | LAB | | | | [address];[place] | | | | | | [address] | | | | + + + + + + | BUN/Creatin | 4Comment: Testing | | EXTERNAL | | | ine Ratio | performed at [facility];[address] | | LAB | | | | [address];[place] | | | | | | [address] | | | | + + + + + + | Calcium | 8.8Comment: NOTE NEW | 8.5 - 10.5 | EXTERNAL | | | | REFERENCE RANGETesting | mg/dL | LAB | | | | performed at [facility];[address] | | | | | | [address];[place] | | | | | | [address] | | | | + + + + + + | Estimated | CALCULATION NOT | mL/min/1.73m2 | EXTERNAL | | | GFR | PERFORMED. RESULT NOT | | LAB | | | | VALID IF AGE LT 20 | | | | | | YEARS.Comment: Testing | | | | | | performed at [facility];[address] | | | | | | [address];[place], [place] | | | | | | [address] | | | | + + + [...]
--- OUTSIDE RECORDS SUMMARY | ~2019-02-17 | XMS | Encounter Summary ---
Demographics + + + | Address | [address] | | | [place] [address] | + + + | Home Phone [...] | Author | [facility] | | | and [place] | + + + | Organization | [facility] | | [...] Team Providers + +------+ + | Care Inpatient Services Director Name | Role | Phone [...] | Refill | [facility] [place] | o[place] | Medication Refill | | 2017 | | NEPHROLOGY [address] | M, DO [address] | | | | | [address] | [place] | | | | | [place], [place] | [place], [place] | | | | | [address] | [address] | | | | | [phone] | | | +--------+--------+ + + + [...] | | | | | [place] [address] | | | | | | [phone] | | | | | | | | +--------+---------+ + + + documented as of this encounter Visit Diagnoses Not on filedocumented in this encounter"
--- OUTSIDE RECORDS SUMMARY | ~2019-02-17 | XMS | Encounter Summary ---
Demographics + + + | Address | [address] | | | [place] [address] | + + + | Home Phone [...] | [facility] | | | and [place] | + + + | Organization | [facility] | | [...] Providers + +------+ + | Care Sales Service Manager Name | Role | Phone [...] | NEPHROLOGY [address] | [address] | | | | | [address] | [address] [place] | | | | | [place], [place] | [place] [address] | | | | | [address] | [phone] | | | | | [phone] | | | +--------+ + + + [...] verification form rec eived from Navin Casanova assistant property manager, [facility] regarding [facility], do s: 12/08/16. Sent [...] [place] | | | | | | [place] [address] | | | | | | [phone] | | | | | | | | +--------+---------+ + + + documented as of this encounter Visit Diagnoses Not on filedocumented in this encounter"
--- OUTSIDE RECORDS SUMMARY | ~2019-02-17 | XMS | Encounter Summary ---
Demographics + + + | Address | [address] | | | [place] [address] | + + + | Home Phone [...] | | | | | [place] [address] | | + + + + + | Thania Mallory | ECON | [address] | | | | | [place] [address] | | + + + + + | Deidra Weldon | ECON | [address] | | | | | [place] | | | | | [address] | | + + + + + Care Team Providers + +------+ + | Care Egg Factory Worker Name | Role | Phone | [...] Decision | | | | ANNAL[address] [facility] | [facility] | | | | | Rd [place], [place] | [place], [place] | | | | | [address] | [address] | | | | | [phone] | | | +--------+ + + + [...] Denise | | | | | | [place], [place] | | | | | | [address] | | | | | | [phone] | | | | | | | | +--------+ + + + + documented as of this encounter Visit Diagnoses Not on filedocumented in this encounter"
--- OUTSIDE RECORDS SUMMARY | ~2019-02-17 | XMS | Encounter Summary ---
Demographics + + + | Address | [address] | | | [place] [address] | + + + | Home Phone [...] | | | | | [place] [address] | | + + + + + | Thania Mallory | ECON | [address] | | | | | [place] [address] | | + + + + + | Deidra Weldon | ECON | [address] | | | | | [place] | | | | | [address] | | + + + + + Care Team Providers + +------+ + | Care Feed Elevator Worker Name | Role | Phone | [...] date) | | | | [address]NAL[address] [facility] | [facility] | | | | | Rd [place], [place] | [place], [place] | | | | | [address] | [address] | | | | | [phone] | | | +--------+ + + + [...] Denise | | | | | | [place], [place] | | | | | | [address] | | | | | | [phone] | | | | | | | | +--------+ + + + + documented as of this encounter Visit Diagnoses Not on filedocumented in this encounter"
--- OUTSIDE RECORDS SUMMARY | ~2019-02-17 | XMS | Encounter Summary ---
Demographics + + + | Address | [address] | | | [place] [address] | + + + | Home Phone [...] | | | | | [place] [address] | | + + + + + | Thania Mallory | ECON | [address] | | | | | [place] [address] | | + + + + + | Deidra Weldon | ECON | [address] | | | | | [place] | | | | | [address] | | + + + + + Care Team Providers + +------+ + | Care Rubber And Pounder Name | Role | Phone | + [...] erpretation | Cardiology at | [address] [facility] | disease (HCC) | | | | Alexander | [address] | (Primary Dx) | | | | [facility] | [place], [place] | | | | | [address] | [address] | | | | | Mailcode: LEYLA | [phone] | | | | | Alexander | | | | | | [place], [place] | | | | | | [address] | | | | | | [phone] | | | +--------+ + + + [...] Denise | | | | | | [place], [place] | | | | | | [address] | | | | | | [phone] | | | | | | | [...]
--- OUTSIDE RECORDS SUMMARY | ~2019-02-17 | XMS | Encounter Summary ---
Demographics + + + | Address | [address] | | | [place] [address] | + + + | Home Phone [...] | | | | | [place] [address] | | + + + + + | Thania Mallory | ECON | [address] | | | | | [place] [address] | | + + + + + | Deidra Weldon | ECON | [address] | | | | | [place] | | | | | [address] | | + + + + + Care Team Providers + +------+ + | Care Filament Welder Name | Role | Phone | [...] | | | | ANNALISA [facility] | [facility] | | | | | Dustin [place], [place] | [place], [place] | | | | | [address] | [address] | | | | | [phone] | [phone] | | | | | | | [...] | | | | | | [place], [place] | | | | | | [address] | | | | | | [phone] | | | | | | | | +--------+ + + + + documented as of this encounter Visit Diagnoses Not on filedocumented in this encounter"
--- OUTSIDE RECORDS SUMMARY | ~2019-02-17 | XMS | Encounter Summary ---
Demographics + + + | Address | [address] | | | [place] [address] | + + + | Home Phone [...] + | Author | [facility] | | | and Josephana | + + + | Organization | [facility] | | | [...] Team Providers + +------+ + | Care Lard Maker Name | Role | Phone | [...] | stage renal | [address] | [address] [place] [address] | | | | | disease) | Shun Griffin | [place] | | | | | (HCC) | [address] | [address] [place] | | | | | Anemia in | [place], [place] | [place], [place] | | | | | ESRD | [address] | [address] Phone: | | | | | (end-stage | Phone: | [phone] | | | | | renal | [phone] | Fax: | | | | | disease) | Fax: | [phone] | | | | | ([facility]) | [phone] | | | | | | Procedures [...] M, DO [address] | renal disease) ([facility]) | | | | [address] | [place] | (Primary Dx) | | | | [place], [place] | [place], [place] | | | | | [address] | [address] | | | | | [phone] | | | +--------+ + + + [...] to fall on the [place], IV? : [place] Fina Alonso MD, PhD documented in thi [...] DAVIDSON | | | | | | [place] [address] | | | | | | [phone] | | | | | | | | +--------+---------+ + + + documented as of this encounter Visit Diagnoses + + | Diagnosis | + + | ESRD (end stage renal disease) (HCC) - Primary End stage renal disease | + + documented in this encounter
--- OUTSIDE RECORDS SUMMARY | ~2019-02-17 | XMS | Encounter Summary ---
Demographics + + + | Address | [address] | | | [place] [address] | + + + | Home Phone [...] Author | [facility] | | | and Josephana | + + + | Organization | [facility] | | | and Joesphana | + + + | Address | [...] Providers + +------+ + | Care Science Manager Name | Role | Phone | + +------+ + PCP | Unavailable | + +------+ + Encounter Details +--------+ + + + + | Date | Type | Department | Care Team | Description | +--------+ + + + + | 08/12/ | Hospital | [facility] | Conversion | ESRD (end stage | | 2016 | Encounter | CENTER CV INTRA OP | Transaction, | renal disease) | | | | [address] | Provider Unknown | ([facility]); ESRD on | | | | [place], [place] | | hemodialysis ([facility]) | | | | [address] | (Fax) | | | | | [phone] | Doyle Diaz MD | | +--------+ [...] 08/13/151114 Date of Service: 08/13/151114 Status: Signed Automation Control Technician: Taylor Acuna RN (Registered Nurse) Pt [...] DAV[place]SON | | | | | | [place] [address] | | | | | | [phone] | | | | | | | [...] ANGIOPLASTY AV FISTULA VENOUS | | | TELEGRAPHIC TYPEWRITER OPERATOR: Doyle Diaz MD CONSENT: The risks, [...] guidewire combination, a 4 | | | Senegalese angled catheter was advanced and positioned into [...] a | | | guidewire, a 6 Senegalese sheath was advanced and positioned into the [...] a | | | guidewire, a 7 Senegalese sheath was advanced and positioned into the [...] IR ANGIOPLASTY | | AV FISTULA VENOUS TELEGRAPHIC TYPEWRITER OPERATOR: Doyle Diaz MD CONSENT: The risks, [...] catheter guidewire combination, a | | 4 Senegalese angled catheter was advanced and positioned into [...] | | ANGIOPLASTY:Over a guidewire, a 6 Senegalese sheath was advanced and positioned into the [...] Over | | a guidewire, a 7 Senegalese sheath was advanced and positioned into the [...] ANGIOPLASTY AV FISTULA VENOUS | | | TELEGRAPHIC TYPEWRITER OPERATOR: Doyle Diaz MD CONSENT: The risks, [...] guidewire combination, a 4 | | | Senegalese angled catheter was advanced and positioned into [...] a | | | guidewire, a 6 Senegalese sheath was advanced and positioned into the [...] a | | | guidewire, a 7 Senegalese sheath was advanced and positioned into the [...] IR ANGIOPLASTY | | AV FISTULA VENOUS TELEGRAPHIC TYPEWRITER OPERATOR: Doyle Diaz MD CONSENT: The risks, [...] catheter guidewire combination, a | | 4 Senegalese angled catheter was advanced and positioned into [...] | | ANGIOPLASTY:Over a guidewire, a 6 Senegalese sheath was advanced and positioned into the [...] Over | | a guidewire, a 7 Senegalese sheath was advanced and positioned into the [...] LAB | | | | performed at [facility];[address] | | | | | | [facility];[place], [place] | | | | | | [address] | | | | + + + [...]
--- OUTSIDE RECORDS SUMMARY | ~2019-02-17 | XMS | Encounter Summary ---
Demographics + + + | Address | [address] | | | [place] [address] | + + + | Home Phone [...] | | | | | [place] [address] | | + + + + + | Thania Mallory | ECON | [address] | | | | | [place] [address] | | + + + + + | Deidra Weldon | ECON | [address] | | | | | [place] | | | | | [address] | | + + + + + Care Team Providers + +------+ + | Care Neighborhood Worker Name | Role | Phone | [...] | recommendations) | | | | ANNALISA [facility] | [facility] | | | | | Rd [place], [place] | [place], [place] | | | | | [address] | [address] | | | | | [phone] | | | +--------+ + + + [...] Denise | | | | | | [place] | | | | | | [address] | | | | | | [phone] | | | | | | | | +--------+ + + + + documented as of this encounter Visit Diagnoses Not on filedocumented in this encounter"
--- OUTSIDE RECORDS SUMMARY | ~2019-02-17 | XMS | Encounter Summary ---
Demographics + + + | Address | [address] | | | [place] [address] | + + + | Home Phone [...] | Author | [facility] | | | and Josephana | + + + | Organization | [facility] [...] Team Providers + +------+ + | Care Outboard Motor Mechanic Name | Role | Phone [...] | | | | [address]) [address] | [place], [place] | [place], [place] | | | | | stage renal | [address] | [address] Phone: | | | | | disease | Phone: | [phone] | | | | | ([facility]) | [phone] | Fax: | | | | | Infection | Fax: | [phone] | | | | | and | [phone] | | | | | | inflammatory [...] [address] | renal disease) ([facility]) | | | | [address] | [place], [address] | (Primary Dx); | | | | [place], [place] | [place], [place] | Anemia in ESRD | | | | [address] | [address] | (end-stage renal | | | | [phone] | | disease) ([facility]) | +--------+ + + + [...] that she is working very closely with [facility] for 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 [...] excellent candidate from her visits here at [facility]. 6. Anemia--Will need to hold the EPO until the Hb is < 11.0 g/dl, while rechecking the Hb weekly. Plan: 1. Will continue to follow her PTH quarterly without Hectorol Rx. 2. Hold the EPO as above, until the Hb is < 11.0 g/dl. 3. Will try to connect with her Transplant Mobile Solutions Architect at [facility], about re lative timeline of her allograft date. 4. She will follow with Dr. Ibarra in 2 weeks. CC: [place] Fina Joy MD, Renal Transplant [facility], [facility] documented in thi s encounter Plan [...] DAVIDSON | | | | | | [place] [address] | | | | | | [phone] | | | | | | | [...]
--- OUTSIDE RECORDS SUMMARY | ~2019-02-17 | XMS | Encounter Summary ---
Demographics + + + | Address | [address] | | | [place] [address] | + + + | Home Phone [...] | | | | | [place] [address] | | + + + + + | Thania Mallory | ECON | [address] | | | | | [place] [address] | | + + + + + | Deidra Weldon | ECON | [address] | | | | | [place] | | | | | [address] | | + + + + + Care Team Providers + +------+ + | Care Ict Customer Support Officer Name | Role | Phone | [...] | | | | | ANNALISA [facility] | [facility], | | | | | Dustin [place], [place] | [place] [address] | | | | | [address] | | | | | | [phone] | | | +--------+ + + + [...] Denise | | | | | | [place] | | | | | | [address] | | | | | | [phone] | | | | | | | | +--------+ + + + + documented as of this encounter Visit Diagnoses Not on filedocumented in this encounter"
--- OUTSIDE RECORDS SUMMARY | ~2019-02-17 | XMS | Encounter Summary ---
Demographics + + + | Address | [address] | | | [place] [address] | + + + | Home Phone [...] [facility] | | | and Josephana | + + + | Organization | [facility] | [...] Team Providers + +------+ + | Care Butcher All Round Name | Role | Phone | + [...] + | 02/28/ | Telephone | [facility] | Blake Chavarria | Appointment (Post | | 2013 | | SURGERY [address] | MD Antonieta, FACS [address] | Op) | | | | [place], [place] | [address] | | | | | [address] | [place] [address] | | | | | [phone] | [phone] | | | | | | | [...] DAVIDSON | | | | | | [place] [address] | | | | | | [phone] | | | | | | | | +--------+---------+ + + + documented as of this encounter Visit Diagnoses Not on filedocumented in this encounter"
--- OUTSIDE RECORDS SUMMARY | ~2019-02-17 | XMS | Encounter Summary ---
Demographics + + + | Address | [address] | | | [place] [address] | + + + | Home Phone [...] | Author | [facility] | | | and Josephana | + + + | Organization | [facility] | | [...] Providers + +------+ + | Care Cash Clerk Name | Role | Phone | [...] NEPHROLOGY [address] | M, DO [address] | | | | | [address] | [place], [address] | | | | | [place], [place] | [place], [place] | | | | | [address] | [address] | | | | | [phone] | | | +--------+ + + + [...] DAVIDSON | | | | | | [place] [address] | | | | | | [phone] | | | | | | | | +--------+---------+ + + + documented as of this encounter Visit Diagnoses Not on filedocumented in this encounter"
--- OUTSIDE RECORDS SUMMARY | ~2019-02-17 | XMS | Encounter Summary ---
Demographics + + + | Address | [address] | | | [place] [address] | + + + | Home Phone [...] + | Author | [facility] | | | and Josephana | + + + | Organization | [facility] | | | [...] Providers + +------+ + | Care Photo Finish Photographer Name | Role | Phone | + [...] | NEPHROLOGY [address] | [address] | | | | | [address] | [address] [place] | | | | | [place], [place] | [place] [address] | | | | | [address] | [phone] | | | | | [phone] | | | +--------+ + + + [...] | | | | | [place] [address] | | | | | | [phone] | | | | | | | | +--------+---------+ + + + documented as of this encounter Visit Diagnoses Not on filedocumented in this encounter"
--- OUTSIDE RECORDS SUMMARY | ~2019-02-17 | XMS | Encounter Summary ---
Demographics + + + | Address | [address] | | | [place] [address] | + + + | Home Phone [...] | Author | [facility] | | | and Josephana | + + + | Organization | [facility] [...] Providers + +------+ + | Care Hadoop Analyst Name | Role | Phone | [...] | | | | [address]) End | [place], [place] | [place], [place] | | | | | stage renal | [address] | [address] Phone: | | | | | disease | Phone: | [phone] | | | | | ([facility]) | [phone] | Fax: | | | | | Infection | Fax: | [phone] | | | | | and | [phone] | | | | | | inflammatory [...] | | [address] | [place], [address] | (Primary Dx); | | | | [place], [place] | [place], [place] | Anemia in ESRD | | | | [address] | [address] | (end-stage renal | | | | [phone] | | disease) ([facility]) [...] recheck her Hb in one week. CC: [place] Fina Joy MD, Renal Transplant Clinic, [facility] Blake Chavarria MD, FACS documented in thi [...] DAVIDSON | | | | | | [place] [address] | | | | | | [phone] | | | | | | | [...]
--- OUTSIDE RECORDS SUMMARY | ~2019-02-17 | XMS | Encounter Summary ---
Demographics + + + | Address | [address] | | | [place] [address] | + + + | Home Phone [...] | | | | | [place] [address] | | + + + + + | Thania Mallory | ECON | [address] | | | | | [place] [address] | | + + + + + | Deidra Weldon | ECON | [address] | | | | | [...] | 01/20/ | Hospital | Radiology at [facility] | | | | 2014 | Encounter | [address] | | | | | | Mailcode: [id number] | | | | | | [place] | | | | | | [place], [place] | | | | | | [address] | | | | | | [phone] | | | +--------+ + + + [...] Correarobina | | | | | | [place], [place] | | | | | | [address] | | | | | | [phone] | | | | | | | [...] | | + +---------+ + + | [facility] DEPARTMENT OF | | | [...]
--- OUTSIDE RECORDS SUMMARY | ~2019-02-17 | XMS | Encounter Summary ---
Demographics + + + | Address | [address] | | | [place] [address] | + + + | Home Phone [...] | | | | | [place] [address] | | + + + + + | Thania Mallory | ECON | [address] | | | | | [place] [address] | | + + + + + | Deidra Weldon | ECON | [address] | | | | | [place] | | | | | [address] | | + + + + + Care Team Providers + +------+ + | Care Brand Representative Name | Role | Phone | [...] SW | | | | ANNALISA [facility] [facility] | [facility] [address] [facility] | follow-up on | | | | Rd [place], [place] | [place], [place] | family's post-[place] | | | | [address] | [address] | care plan) | | | | [phone] | | | +--------+ + + + [...] Denise | | | | | | [place] | | | | | | [address] | | | | | | [phone] | | | | | | | | +--------+ + + + + documented as of this encounter Visit Diagnoses Not on filedocumented in this encounter"
--- OUTSIDE RECORDS SUMMARY | ~2019-02-17 | XMS | Encounter Summary ---
Demographics + + + | Address | [address] | | | [place] [address] | + + + | Home Phone [...] | | | | | [place] [address] | | + + + + + | Thania Mallory | ECON | [address] | | | | | [place] [address] | | + + + + + | Deidra Weldon | ECON | [address] | | | | | [place] | | | | | [address] | | + + + + + Care Team Providers + +------+ + | Care C Software Engineer Name | Role | Phone [...] | | | [place] | [facility] | | | | | [facility] | [place], [place] | | | | | [address] | [address] | | | | | Mailcode: [id number] | [phone] | | | | | Alexander | | | | | | [place], [place] | | | | | | [address] | | | | | | [phone] | | | +--------+ + + + [...] [place] | | | | | | [address] | | | | | | [phone] | | | | | | | | +--------+ + + + + documented as of this encounter Visit Diagnoses Not on filedocumented in this encounter"
--- OUTSIDE RECORDS SUMMARY | ~2019-02-17 | XMS | Encounter Summary ---
Demographics + + + | Address | [address] | | | [place] [address] | + + + | Home Phone [...] | | | | | [place] [address] | | + + + + + | Thania Mallory | ECON | [address] | | | | | [place] [address] | | + + + + + | Deidra Weldon | ECON | [address] | | | | | [place] | | | | | [address] | | + + + + + Care Team Providers + +------+ + | Care Ancillary Services Manager Name | Role | Phone [...] | ABO) | | | | ANNALISA [facility] | [facility] | | | | | Rd [place], [place] | [place], [place] | | | | | [address] | [address] | | | | | [phone] | | | +--------+ + + + [...] Denise | | | | | | [place], [place] | | | | | | [address] | | | | | | [phone] | | | | | | | [...] + + | [facility] - | [address] | [place] | [phone] | | [place] | | | | + + + + + documented in this encounter Visit Diagnoses Not on filedocumented in this encounter"
--- OUTSIDE RECORDS SUMMARY | ~2019-02-17 | XMS | Encounter Summary ---
[...] | | | | | [place] [address] | | + + + + + | Thania Mallory | ECON | [address] | | | | | [place] [address] | | + + + + + | Deidra Weldon | ECON | [address] | | | | | [place] | | | | | [address] | | + + + + + Care Team Providers + +------+ + | Care Front Office Assistant Name | Role | Phone | + +------+ + | Jonathan Alnoso MD | PCP | | + +------+ [...] questions) | | | | ANNALISA [place] | [facility] | | | | | [place], [place] | [place], [place] | | | | | [address] | [address] | | | | | [phone] | | | +--------+ + + + [...] Denise | | | | | | [place] | | | | | | [address] | | | | | | [phone] | | | | | | | | +--------+ + + + + documented as of this encounter Visit Diagnoses Not on filedocumented in this encounter"
--- OUTSIDE RECORDS SUMMARY | ~2019-02-17 | XMS | Encounter Summary ---
Demographics + + + | Address | [address] | | | [place] [address] | + + + | Home Phone [...] + | Author | [facility] | | | and Josephana | + + + | Organization | [facility] | [...] Team Providers + +------+ + | Care Websphere Architect Name | Role | Phone | + +------+ + PCP | Unavailable | + +------+ + Encounter Details +--------+ + + + + | Date | Type | Department | Care Team | Description | +--------+ + + + + | 02/20/ | Abstract | [facility] | Blake Chavarria | | | 2013 | | SURGERY [address] Fugn MD, FACS [address] | | | | | [address] [place] | [address] [facility] | | | | | [address] | [facility] [place] [address] | | | | | [phone] | [phone] | | | | | | | [...] DAVIDSON | | | | | | [place] [address] | | | | | | [phone] | | | | | | | [...]
--- OUTSIDE RECORDS SUMMARY | ~2019-02-17 | XMS | Encounter Summary ---
Demographics + + + | Address | [address] | | | [place] [address] | + + + | Home Phone [...] [facility] | | | and Josephana | + + + | Organization | [facility] | | | and [...] + + | 07/10/ | Hospital | [facility] | | | | 2008 - | Encounter | MED CTR OP [facility]AB | | | | | | [address] | | | | 08/03/ | | [place] [address] | | | | 2008 | | [phone] | | | +--------+ + + + [...] DAVIDSON | | | | | | [place] [address] | | | | | | [phone] | | | | | | | | +--------+---------+ + + + documented as of this encounter Visit Diagnoses Not on filedocumented in this encounter"
--- OUTSIDE RECORDS SUMMARY | ~2019-02-17 | XMS | Encounter Summary ---
Demographics + + + | Address | [address] | | | [place] [address] | + + + | Home Phone [...] | | | | | [place] [address] | | + + + + + | Thania Mallory | ECON | [address] | | | | | [place] [address] | | + + + + + | Deidra Weldon | ECON | [address] | | | | | [place] | | | | | [address] | | + + + + + Care Team Providers + +------+ + | Care Amr Physician Name | Role | Phone | [...] check-in on | | | | Rd [place], [place] | [place], [place] | psychosocial goals | | | | [address] | [address] | related to listing | | | | [phone] | | status) | +--------+ + + [...] Denise | | | | | | [place], [place] | | | | | | [address] | | | | | | [phone] | | | | | | | | +--------+ + + + + documented as of this encounter Visit Diagnoses Not on filedocumented in this encounter"
--- OUTSIDE RECORDS SUMMARY | ~2019-02-17 | XMS | Encounter Summary ---
Demographics + + + | Address | [address] | | | [place] [address] | + + + | Home Phone [...] | | | | | [place] [address] | | + + + + + | Thania Mallory | ECON | [address] | | | | | [place] [address] | | + + + + + | Deidra Weldon | ECON | [address] | | | | | [place] | | | | | [address] | | + + + + + Care Team Providers + +------+ + | Care Steel Erecting Pusher Name | Role | Phone | + [...] | Nephrology at | MD Emanuel [address] | | | | | [place] | [facility] | | | | | [facility] | [place], [place] | | | | | [address] [facility] | [address] | | | | | Mailcode: [id number] | [phone] | | | | | Alexander | | | | | | [place], [place] | | | | | | [address] | | | | | | [phone] | | | +--------+ + + + [...] Hospital | Adult Acute Care | El Satrr MD | | | 2022 | Encounter | | [address] | | | | | | [place] | | | | | | [address] | | | | | | [phone] | | | | | | | | +--------+ + + + + documented as of this encounter Visit Diagnoses Not on filedocumented in this encounter"
--- OUTSIDE RECORDS SUMMARY | ~2019-02-17 | XMS | Encounter Summary ---
Demographics + + + | Address | [address] | | | [place] [address] | + + + | Home Phone [...] | [facility] | | | and Josephana | + + + | Organization | [facility] | | [...] Providers + +------+ + | Care Color Stripper Name | Role | Phone | + [...] | | KIDNEY TRANSPLANT | [address] [place], | | | | | [address] [place] | [place] [address] | | | | | [address] [place], [place] | [phone] | | | | | [address] | | | | | | [phone] | | | +--------+ + + + [...] DAVIDSON | | | | | | [place] [address] | | | | | | [phone] | | | | | | | | +--------+---------+ + + + documented as of this encounter Visit Diagnoses Not on filedocumented in this encounter"
--- OUTSIDE RECORDS SUMMARY | ~2019-02-17 | XMS | Encounter Summary ---
Demographics + + + | Address | [address] | | | [place] [address] | + + + | Home Phone [...] Team Providers + +------+ + | Care Corpsman Name | Role | Phone | + [...] | stage renal | [address] | [address] [place] [address] | | | | | disease) | Shun Griffin | Jaciel Gotti | | | | | ([facility]) | [address] | [address] [place] | | | | | Anemia in | [place], [place] | [place] | | | | | ESRD | [address] | [address] Phone: | | | | | (end-stage | Phone: | [phone] | | | | | renal | [phone] | Fax: | | | | | disease) | Fax: | [phone] | | | | | ([facility]) | [phone] | | | | | | Procedures [...] M, DO [address] | renal disease) ([facility]) | | | | [address] | [place] | (Primary Dx) | | | | [place], [place] | [place], [place] | | | | | [address] | [address] | | | | | [phone] | | | +--------+ + + + [...] is seen on the MWF shift at [place]. 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 Sadly, efforts at counseling by multiple caregivers including Dr. Ibarra, myself, Staff Nurs es, and Clinic HEADER BOSS have failed to reach her. She continues [...] Will recheck her in 2 weeks. : [place] Fina Joy M.D., Pediatric Nephrology, [facility] documented in t his encounter Plan [...] DAV[place]SON | | | | | | [place] [address] | | | | | | [phone] | | | | | | | | +--------+---------+ + + + documented as of this encounter Visit Diagnoses + + | Diagnosis | + + | ESRD (end stage renal disease) (HCC) - Primary End stage renal disease | + + documented in this encounter"
--- OUTSIDE RECORDS SUMMARY | ~2019-02-17 | XMS | Encounter Summary ---
Demographics + + + | Address | [address] | | | [place] [address] | + + + | Home Phone [...] + + | Author | [facility] | | | and [place] | + + + | Organization | [facility] | [...] Team Providers + +------+ + | Care Casino Gaming Worker Name | Role | Phone | [...] stage renal | [address] | [address] [place] [address] | | | | | disease) | Shun Griffin | Jaciel Gotti | | | | | ([facility]) | [address] | [address] | | | | | Anemia in | [place], [place] | [place] | | | | | ESRD | [address] | [address] Phone: | | | | | (end-stage | Phone: | [phone] | | | | | renal | [phone] | Fax: | | | | | disease) | Fax: | [phone] | | | | | ([facility]) | [phone] | | | | | | Procedures [...] | | [address] | [place] | (Primary Dx) | | | | [place], [place] | [place], [place] | | | | | [address] | [address] | | | | | [phone] | | | +--------+ + + + [...] is seen on the [place]WF shift at [place]. 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 Sadly, efforts at counseling by multiple caregivers including Dr. Ibarra, myself, Staff Nurs es, and Clinic FABRIC STRETCHER have failed to reach her. She continues [...] for the 08/29/16 encounter (Off-Site Visit) with aCmille Camp DO Medication Sig Dispense Refill albuterol [...] Will recheck her in 2 weeks. : [place] Fina Joy M.D., Pediatric Nephrology, [facility] documented in t his encounter [...] DAVIDSON | | | | | | [place] [address] | | | | | | [phone] | | | | | | | | +--------+---------+ + + + documented as of this encounter Visit Diagnoses + + | Diagnosis | + + | ESRD (end stage renal disease) (HCC) - Primary End stage renal disease | + + documented in this encounter"
--- OUTSIDE RECORDS SUMMARY | ~2019-02-17 | XMS | Encounter Summary ---
Demographics + + + | Address | [address] | | | [place] [address] | + + + | Home Phone [...] | [facility] | | | and [place] | + + + | Organization | [facility] | | [...] NEPHROLOGY [address] | MD [address] | (Asymptomatic) | | | | [address] | [address] [place] | | | | | [place], [place] | [place] [address] | | | | | [address] | [phone] | | | | | [phone] | | | +--------+ + + + [...] note e-faxed to Jamil Levi in Dialysis [facility], Lianna Joy [facility] pediatric nephrology at [facility] on 02/07/14. Daniela Ibarra MD - 01/24/2014 2:48 PM PSTFormatting of this note might be different fr om the original. Comprehensive Dialysis Monthly Note Date of visit: 01/24/2014 Dialysis Clinic: [facility] Mode of dialysis: Hemodialysis Dialysis prescription: MWF, [...] 2012. Access: R chest catheter. Re-referred to [facility] transplant in Oct 2013 by rn pediatric icu. Peritonitis, dialysis-associated (HCC) 07/29/2013 Note Last Updated: 07/29/2013 Due to MSSA. Had tunneled infection as well. PD catheter removed in July 2013. On Keflex till 08/01/13. History of Henoch-Schonlein purpura Note Last Updated: 07/29/2013 Diagnosed at age 10[address] Joy, rn pediatric icu. Anemia in ESRD (end-stage renal disease) (HCC) [...] ed for acceptable candidacy. Will f/u with [facility] Transplant Team. cc: Lucille Griffin [facility] Dr. Lianna Joy, [facility] Pediatric Nephrology [facility] Renal transplant documented in this encounter Plan [...] DAV[place]SON | | | | | | [place] [address] | | | | | | [phone] | | | | | | | [...]
--- OUTSIDE RECORDS SUMMARY | ~2019-02-17 | XMS | Encounter Summary ---
Demographics + + + | Address | [address] | | | [place] [address] | + + + | Home Phone [...] | Author | [facility] | | | and [place] | + + + | Organization | [facility] | [...] Providers + +------+ + | Care Rn Burn Name | Role | Phone | + +------+ + PCP | Unavailable | + +------+ + Encounter Details +--------+ + + + + | Date | Type | Department | Care Team | Description | +--------+ + + + + | 10/28/ | Hospital | [facility] | Conversion | ESRD (end stage | | 2015 | Encounter | CENTER CV INTRA OP | Transaction, | renal disease) (HCC) | | | | [address] | Provider Unknown | | | | | [place], [place] | [phone] | | | | | [address] | | | | | | [phone] | Colten Hutchins MD | | | | | | [address] | | | | | | [place], [place] | | | | | | [address] | | | | | | | [...] [place] | | | | | | [place] [address] | | | | | | [phone] | | | | | | | [...] COMPARISON STUDIES: 08/21/2014 | | | PRIMARY STOCK HOLDER: Colten Hutchins MD, PhD, VI OPERATIONS: 1. [...] to the area of stenosis. A 4 Tajik | | | sheath was placed. Patient [...] | perianastomotic stenoses. COMPARISON STUDIES: 08/21/2014 PRIMARY STOCK HOLDER: Colten | | MD Liset, PhD, RPVI [...] to the area of stenosis. A 4 Tajik sheath was placed. Patient was | | [...] COMPARISON STUDIES: 08/21/2014 | | | PRIMARY STOCK HOLDER: Colten Hutchins MD, PhD, [facility] OPERATIONS: 1. | | | Left [...] to the area of stenosis. A 4 Tajik | | | sheath was placed. Patient [...] | perianastomotic stenoses. COMPARISON STUDIES: 08/21/2014 PRIMARY STOCK HOLDER: Colten | | MD Liset, PhD, RPVI [...] to the area of stenosis. A 4 Tajik sheath was placed. Patient was | | [...] EXTERNAL | | | | performed at [facility];[address] | K/uL | LAB | | | | [address];[place], [place] | | | | | | [address] | | | | + + + + + + | RED CELL | 3.88Comment: Testing | 3.70 - 5.10 | EXTERNAL | | | COUNT | performed at [facility];[address] | M/uL | LAB | | | | [address];[place] | | | | | | [address] | | | | + + + + + + | Hgb | 14.1Comment: Testing | 11.3 - 15.5 | EXTERNAL | | | | performed at [facility];888 | g/dL | LAB | | | | [address];[place] | | | | | | [address] | | | | + + + + + + | Hematocrit, | 41.4Comment: Testing | 34.0 - 46.0 % | EXTERNAL | | | POC | performed at [facility];[address] | | LAB | | | | [address];[place] | | | | | | [address] | | | | + + + + + + | MCV | 106.7 (H)Comment: | 80.0 - 100.0 fl | EXTERNAL | | | | Testing performed at | | LAB | | | | [facility];[address] | | | [address];[place] [address] | | | | + + + + + + | MCH | 36.4 (H)Comment: Testing | 27.0 - 34.0 pg | EXTERNAL | | | | performed at [facility];[address] | | LAB | | | | [address];[place] | | | | | | [address] | | | | + + + + + + | MCHC | 34.1Comment: Testing | 32.0 - 35.5 | EXTERNAL | | | | performed at [facility];888 | g/dL | LAB | | | | [address];[place] | | | | | | [address] | | | | + + + + + + | RDW-CV | 54.7 (H)Comment: Testing | 37 - 53 fl | EXTERNAL | | | | performed at [facility];[address] | | LAB | | | | [address];[place] | | | | | | [address] | | | | + + + + + + | Platelet | 168Comment: Testing | 150 - 400 K/uL | EXTERNAL | | | Count | performed at [facility];888 | | LAB | | | Plasma | [address];[place] | | | | | | [address] | | | | + + + + + + | MPV | 9.1Comment: Testing | fl | EXTERNAL | | | | performed at [facility];[address] | | LAB | | | | [address];[place] | | | | | | [address] | | | | + + + [...] | | | | | performed at [facility] | | | | | | [address];[place] | | | | | | [address] | | | | + + + [...] EXTERNAL | | | | performed at [facility];888 | mmol/L | LAB | | | | [address];[place] | | | | | | [address] | | | | + + + + + + | K | 3.9Comment: Testing | 3.5 - 4.9 | EXTERNAL | | | | performed at [facility];888 | mmol/L | LAB | | | | [address];[place] | | | | | | [address] | | | | + + + + + + | Cl | 97 (L)Comment: Testing | 99 - 109 mmol/L | EXTERNAL | | | | performed at [facility];[address] | | LAB | | | | [address];[place] | | | | | | [address] | | | | + + + + + + | CO2 | 34 (H)Comment: Testing | 23 - 32 mmol/L | EXTERNAL | | | | performed at [facility];[address] | | LAB | | | | [address];[place] | | | | | | [address] | | | | + + + + + + | Anion Gap | 12Comment: Testing | 5 - 20 mmol/L | EXTERNAL | | | | performed at [facility];[address] | | LAB | | | | [address];[place] | | | | | | [address] | | | | + + + + + + | Glucose, | 87Comment: Testing | 65 - 99 mg/dL | EXTERNAL | | | Fasting | performed at [facility];[address] | | LAB | | | | [address];[place] | | | | | | [address] | | | | + + + + + + | BUN | 23Comment: Testing | 8 - 25 mg/dL | EXTERNAL | | | | performed at [facility];[address] | | LAB | | | | [address];[place] | | | | | | [address] | | | | + + + + + + | Creatinine | 6.4 (H)Comment: Testing | 0.50 - 1.00 | EXTERNAL | | | | performed at [facility];888 | mg/dL | LAB | | | | [address];[place] | | | | | | [address] | | | | + + + + + + | BUN/Creatin | 4Comment: Testing | | EXTERNAL | | | ine Ratio | performed at [facility];[address] | | LAB | | | | [address];[place] | | | | | | [address] | | | | + + + + + + | Calcium | 9.5Comment: Testing | 8.5 - 10.5 | EXTERNAL | | | | performed at [facility];888 | mg/dL | LAB | | | | [address];[place] | | | | | | [address] | | | | + + + + + + | Estimated | CALCULATION NOT | mL/min/1.73m2 | EXTERNAL | | | GFR | PERFORMED. RESULT NOT | | LAB | | | | VALID IF AGE LT 20 | | | | | | YEARS.Comment: Testing | | | | | | performed at [facility];[address] | | | | | | [address];[place], [place] | | | | | | [address] | | | | + + + [...]
--- OUTSIDE RECORDS SUMMARY | ~2019-02-17 | XMS | Encounter Summary ---
Demographics + + + | Address | [address] | | | [place] [address] | + + + | Home Phone [...] | Author | [facility] | | | and [place] | + + + | Organization | [facility] [...] Providers + +------+ + | Care Cement Side Laster Name | Role | Phone | + +------+ + PCP | Unavailable | + +------+ + Encounter Details +--------+ + + + + | Date | Type | Department | Care Team | Description | +--------+ + + + + | 01/27/ | Hospital | CC [facility] GENERIC OP | Sudhakar Joy | | | 2009 | Encounter | JOY | MD Emanuel [address] | | | | | [address] | [facility] | | | | | [address] | [place], [place] | | | | | [place], [place] | [address] | | | | | [address] | [phone] | | | | | [phone] | | | +--------+ + + + [...] DAVIDSON | | | | | | [place] [address] | | | | | | [phone] | | | | | | | | +--------+---------+ + + + documented as of this encounter Visit Diagnoses Not on filedocumented in this encounter"
--- OUTSIDE RECORDS SUMMARY | ~2019-02-17 | XMS | Encounter Summary ---
Demographics + + + | Address | [address] | | | [place] [address] | + + + | Home Phone [...] Author | [facility] | | | and [place] | + + + | Organization | [facility] | | [...] Team Providers + +------+ + | Care Optical Instrument Repairer Name | Role | Phone | [...] M, DO [address] | renal disease) ([facility]) | | | | [address] | [place], [address] | (Primary Dx); | | | | [place], [place] | [place] | Anemia in ESRD | | | | [address] | [address] | (end-stage renal | | | | [phone] | | disease) ([facility] [...] vein Three times a w [place]. iron sucrose (VENOFER) 20 mg/mL injection Inject [...] the Nephrology Team in 2 weeks. CC: [place] Fina Joy MD, Renal Transplant Clinic, [facility] signed by Jorje Camp DO [...] [place] | | | | | | [place] [address] | | | | | | [phone] | | | | | | | [...]
--- OUTSIDE RECORDS SUMMARY | ~2019-02-17 | XMS | Encounter Summary ---
Demographics + + + | Address | [address] | | | [place] [address] | + + + | Home Phone [...] Author | [facility] | | | and [place] | + + + | Organization | [facility] | [...] Providers + +------+ + | Care Wire Preparation Machine Tender Name | Role | Phone | + +------+ + | Jonathan Alonso MD | PCP | | + +------+ + Encounter Details +--------+ + + + + | Date | Type | Department | Care Team | Description | +--------+ + + + + | 10/08/ | Orders Only | [facility] | Provider, | Systolic congestive | | 2019 | | SYSTEM GENERIC OP | MD [address] | heart failure (HCC) | | | | CONVERSION [address] | [place]. | | | | | [address] [place], [place] | [place] [address] | | | | | [address] | | | | | | [phone] | | | +--------+ + + + [...] DAVIDSON | | | | | | [place] [address] | | | | | | [phone] | | | | | | | [...]
--- OUTSIDE RECORDS SUMMARY | ~2019-02-17 | XMS | Encounter Summary ---
Demographics + + + | Address | [address] | | | [place] [address] | + + + | Home Phone [...] | | | | | [place] [address] | | + + + + + | Thania Mallory | ECON | [address] | | | | | [place] [address] | | + + + + + | Deidra Weldon | ECON | [address] | | | | | [place] | | | | | [address] | | + + + + + Care Team Providers + +------+ + | Care Advertising Specialist Name | Role | Phone | [...] Requested | | | | Alexander | [facility] | | | | | [facility] | [place], [place] | | | | | [address] [place] [address] Dr | [address] | | | | | Mailcode: [id number] | | | | | | Alexander | | | | | | [place], [place] | | | | | | [address] | | | | | | [phone] | | | +--------+ + + + [...] Denise | | | | | | [place] | | | | | | [address] | | | | | | [phone] | | | | | | | | +--------+ + + + + documented as of this encounter Visit Diagnoses Not on filedocumented in this encounter"
--- OUTSIDE RECORDS SUMMARY | ~2019-02-17 | XMS | Encounter Summary ---
Demographics + + + | Address | [address] | | | [place] [address] | + + + | Home Phone [...] | | | | | [place] [address] | | + + + + + | Thania Mallory | ECON | [address] | | | | | [place] [address] | | + + + + + | Deidra Weldon | ECON | [address] | | | | | [place] | | | | | [address] | | + + + + + Care Team Providers + +------+ + | Care Marine Propulsion Technician Name | Role | Phone | [...] | [address] [facility] | [facility] | | | | | Rd [place], [place] | [place], [place] | | | | | [address] | [address] | | | | | [phone] | | | +--------+ + + + [...] Denise | | | | | | [place], [place] | | | | | | [address] | | | | | | [phone] | | | | | | | | +--------+ + + + + documented as of this encounter Visit Diagnoses Not on filedocumented in this encounter"
--- OUTSIDE RECORDS SUMMARY | ~2019-02-17 | XMS | Encounter Summary ---
Demographics + + + | Address | [address] | | | [place] [address] | + + + | Home Phone [...] | | | | | [place] [address] | | + + + + + | Thania Mallory | ECON | [address] | | | | | [place] [address] | | + + + + + | Deidra Weldon | ECON | [address] | | | | | [place] | | | | | [address] | | + + + + + Care Team Providers + +------+ + | Care Perinatal Social Worker Name | Role | Phone | [...] - Renal | | | | [facility] | [facility] | | | | | Rd [place], [place] | [place], [place] | | | | | [address] | [address] | | | | | [phone] | | | +--------+ + + + [...] | | | | | | [place], [place] | | | | | | [address] | | | | | | [phone] | | | | | | | [...]
--- OUTSIDE RECORDS SUMMARY | ~2019-02-17 | XMS | Encounter Summary ---
Demographics + + + | Address | [address] | | | [place] [address] | + + + | Home Phone [...] | | | | | [place] [address] | | + + + + + | Thania Mallory | ECON | [address] | | | | | [place] [address] | | + + + + + | Deidra Weldon | ECON | [address] | | | | | [place] | | | | | [address] | | + + + + + Care Team Providers + +------+ + | Care Day Camp Counselor Name | Role | Phone | [...] (Dialysis | | | | [address] [place] | [address] | unit updated) | | | | [place], [place] | [facility] [place] | | | | | [address] | [address] | | | | | [phone] | [phone] | | | | | | | [...] Denise | | | | | | [place] | | | | | | [address] | | | | | | [phone] | | | | | | | | +--------+ + + + + documented as of this encounter Visit Diagnoses Not on filedocumented in this encounter"
--- OUTSIDE RECORDS SUMMARY | ~2019-02-17 | XMS | Encounter Summary ---
Demographics + + + | Address | [address] | | | [place] [address] | + + + | Home Phone [...] + | Author | [facility] | | | and [place] | + + + | Organization | [facility] [...] Team Providers + +------+ + | Care Psychiatric Mental Health Nurse Name | Role | Phone [...] NEPHROLOGY [address] | M, DO [address] | | | | | [address] | [place], [address] | | | | | [place], [place] | [place], [place] | | | | | [address] | [address] | | | | | [phone] | | | +--------+ + + + [...] repeatedly declines. The entire dialysis team including park worker have had mult iple conversations with [...] DAVIDSON | | | | | | [place] [address] | | | | | | [phone] | | | | | | | | +--------+---------+ + + + documented as of this encounter Visit Diagnoses Not on filedocumented in this encounter"
--- OUTSIDE RECORDS SUMMARY | ~2019-02-17 | XMS | Encounter Summary ---
Demographics + + + | Address | [address] | | | [place] [address] | + + + | Home Phone [...] | | | | | [place] [address] | | + + + + + | Thania Mallory | ECON | [address] | | | | | [place] [address] | | + + + + + | Deidra Weldon | ECON | [address] | | | | | [place] | | | | | [address] | | + + + + + Care Team Providers + +------+ + | Care Brace End Mainspring Former Name | Role | Phone | [...] [address] | | | | | [address] [facility] | [facility] | | | | | Rd [place], [place] | [place], [place] | | | | | [address] | [address] | | | | | [phone] | | | +--------+ + + + [...] Denise | | | | | | [place] | | | | | | [address] | | | | | | [phone] | | | | | | | | +--------+ + + + + documented as of this encounter Visit Diagnoses Not on filedocumented in this encounter"
--- OUTSIDE RECORDS SUMMARY | ~2019-02-17 | XMS | Encounter Summary ---
Demographics + + + | Address | [address] | | | [place] [address] | + + + | Home Phone [...] | | | | | [place] [address] | | + + + + + | Thania Mallory | ECON | [address] | | | | | [place] [address] | | + + + + + | Deidra Weldon | ECON | [address] | | | | | [place] | | | | | [address] | | + + + + + Care Team Providers + +------+ + | Care Emergency Medical Technician Name | Role | Phone | [...] | | | | | [place], | | | | | | [place] [address] | | | +--------+ + + + [...] Denise | | | | | | [place], [place] | | | | | | [address] | | | | | | [phone] | | | | | | | [...] DANILO - | [address], | [place] [address] | | | IMMUNOGENETICS/TRANS | [address] | | | | [facility] | | | | + + + + + documented in this encounter Visit Diagnoses Not on filedocumented in this encounter"
--- OUTSIDE RECORDS SUMMARY | ~2019-02-17 | XMS | Encounter Summary ---
Demographics + + + | Address | [address] | | | [place] [address] | + + + | Home Phone [...] Author | [facility] | | | and [place] | + + + | Organization | [facility] [...] Providers + +------+ + | Care Conduit Cleaner Name | Role | Phone | [...] | | stage renal | [address] | [address] [place] [address] | | | | | disease) | Shun Griffin | [place] | | | | | ([facility]) | [address] | [address] [place] | | | | | Anemia in | [place], [place] | [place] | | | | | ESRD | [address] | [address] Phone: | | | | | (end-stage | Phone: | [phone] | | | | | renal | [phone] | Fax: | | | | | disease) | Fax: | [phone] | | | | | ([facility]) | [phone] | | | | | | Procedures [...] [address] | renal disease) ([facility]) | | | | [address] | [place], [address] | (Primary Dx) | | | | [place], [place] | [place], [place] | | | | | [address] | [address] | | | | | [phone] | | | +--------+ + + + [...] week from records in [facility], per [facility] Nurse Elisabeth Portillo RN. Her BP, PO4, and PTH are consisently high. 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 Has been counseled in [facility] regarding risks of calciphylaxis. 4. 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 5. Will recheck her in 2 weeks. : [place] Fina Alonso MD, PhD documented in thi [...] DAV[place]SON | | | | | | [place] [address] | | | | | | [phone] | | | | | | | | +--------+---------+ + + + documented as of this encounter Visit Diagnoses + + | Diagnosis | + + | ESRD (end stage renal disease) (HCC) - Primary End stage renal disease | + + documented in this encounter"
--- OUTSIDE RECORDS SUMMARY | ~2019-02-17 | XMS | Encounter Summary ---
Demographics + + + | Address | [address] | | | [place] [address] | + + + | Home Phone [...] | | | | | [place] [address] | | + + + + + | Thania Mallory | ECON | [address] | | | | | [place] [address] | | + + + + + | Deidra Weldon | ECON | [address] | | | | | [place] | | | | | [address] | | + + + + + Care Team Providers + +------+ + | Care Coffee Sampler Name | Role | Phone | + [...] | Update | | | | ANNALISA [facility] | [facility] | | | | | Rd [place], [place] | [place], [place] | | | | | [address] | [address] | | | | | [phone] | | | +--------+ + + + [...] Denise | | | | | | [place] | | | | | | [address] | | | | | | [phone] | | | | | | | | +--------+ + + + + documented as of this encounter Visit Diagnoses Not on filedocumented in this encounter"
--- OUTSIDE RECORDS SUMMARY | ~2019-02-17 | XMS | Encounter Summary ---
Demographics + + + | Address | [address] | | | [place] [address] | + + + | Home Phone [...] | | | | | [place] [address] | | + + + + + | Thania Mallory | ECON | [address] | | | | | [place] [address] | | + + + + + | Deidra Weldon | ECON | [address] | | | | | [place] | | | | | [address] | | + + + + + Care Team Providers + +------+ + | Care Pipeline Systems Operator Name | Role | Phone | [...] questions) | | | | ANNALISA [place] | [facility] | | | | | [place], [place] | [place], [place] | | | | | [address] | [address] | | | | | [phone] | | | +--------+ + + + [...] Denise | | | | | | [place] | | | | | | [address] | | | | | | [phone] | | | | | | | | +--------+ + + + + documented as of this encounter Visit Diagnoses Not on filedocumented in this encounter"
--- OUTSIDE RECORDS SUMMARY | ~2019-02-17 | XMS | Encounter Summary ---
Demographics + + + | Address | [address] | | | [place] [address] | + + + | Home Phone [...] + | Author | [facility] | | | and Josephana | + + + | Organization | [facility] | | | and [...] Providers + +------+ + | Care Supervisor Composing Room Name | Role | Phone | [...] | stage renal | [address] | [address] [place] [address] | | | | | disease) | Shun Griffin | Jaciel Gotti | | | | | ([facility]) | [address] | [address] | | | | | Anemia in | [place], [place] | [place] | | | | | ESRD | [address] | [address] Phone: | | | | | (end-stage | Phone: | [phone] | | | | | renal | [phone] | Fax: | | | | | disease) | Fax: | [phone] | | | | | ([facility]) | [phone] | | | | | | Procedures | | | | | | | [place] OFFICE | | | | | | [...] [address] | renal disease) ([facility]) | | | | [address] | [address] | (Primary Dx) | | | | [place], [place] | [place], [place] | | | | | [address] | [address] | | | | | [phone] | | | +--------+ + + + [...] DAVIDSON | | | | | | [place] [address] | | | | | | [phone] | | | | | | | | +--------+---------+ + + + documented as of this encounter Visit Diagnoses + + | Diagnosis | + + | ESRD (end stage renal disease) (HCC) - Primary End stage renal disease | + + documented in this encounter"
--- OUTSIDE RECORDS SUMMARY | ~2019-02-17 | XMS | Encounter Summary ---
Demographics + + + | Address | [address] | | | [place] [address] | + + + | Home Phone [...] | | | | | [place] [address] | | + + + + + | Thania Mallory | ECON | [address] | | | | | [place] [address] | | + + + + + | Deidra Weldon | ECON | [address] | | | | | [place] | | | | | [address] | | + + + + + Care Team Providers + +------+ + | Care Magazine Editor Name | Role | Phone | [...] Hoffmann | | | | | ANNALISA [facility] | [facility] | | | | | Rd [place], [place] | [place], [place] | | | | | [address] | [address] | | | | | [phone] | | | +--------+ + + + [...] | | | | | | [place] | | | | | | [address] | | | | | | [phone] | | | | | | | | +--------+ + + + + documented as of this encounter Visit Diagnoses Not on filedocumented in this encounter"
--- OUTSIDE RECORDS SUMMARY | ~2019-02-17 | XMS | Encounter Summary ---
Demographics + + + | Address | [address] | | | [place] [address] | + + + | Home Phone [...] | | | | | [place] [address] | | + + + + + | Thania Mallory | ECON | [address] | | | | | [place] [address] | | + + + + + | Deidra Louise | ECON | [address] | | | | | [place] | | | | | [address] | | + + + + + Care Team Providers + +------+ + | Care Mechanical Manufacturing Technician Name | Role | Phone | [...] | | (HCC) [facility] | Elias | [place] | | | | | (Amelie | [address] | Mailcode: | | | | | nlein | [place], [place] | [place] | | | | | purpura) | [address] | [place] | | | | | nephritis | Phone: | [place], [place] | | | | | (HCC) | [phone] | [address] | | | | | Hemodialysis | Fax: | Phone: | | | | | status | [phone] | [phone] | | | | | ([facility]) | | Fax: | | | | | Chronic | | [phone] | | | | | kidney | | | | | | | disease, | | | | | | | stage V | | | | | | | ([facility]) | | | | | | | [...] | Appointment | | | | ANNALISA [facility] | [facility] | | | | | Rd [place], [place] | [place], [place] | | | | | [address] | [address] | | | | | [phone] | | | +--------+ + + + [...] | | | | | | [place], [place] | | | | | | [address] | | | | | | [phone] | | | | | | | [...] V ([facility]) | | + +------+--------+ + + documented [...] BSA | | | | | | (WOOLRICH Z | | | | | | [...] Interface, Cardiology Results - 01/20/2015 2:35 PM [facility] Echocardiography Laboratory | | [address] | | [place] [address] | | ; | | [id number] | | | | Transthoracic Echocardiogram Report | | | | | | NAME: DARA LOUISE Study Date: 01/20/2015 1:18:29 PM | | Order #: [id number] ACC #: [id number] | | | | | | : [...] on 01/20/2015 at 2:35:17 PM | | Lunch Counter Manager: YARITZA KLINE RD | | | | | | cc: | | | | | | Modes utilized | | TTE 29862; Spectral Doppler 93713; Color flow Doppler 49465; | | | | | | | | Final | + + + + + + + | Performing | Address | City/State/Zipcode | Phone Number | | Organization | | | | + + + + + | [facility] | [address] | [place], [place] | | | CARDIOLOGY | [address] | [address] | | + + + + + [...] | + + + + + | [facility] | [address] | [place] [address] | | | SERVICES, SPECIAL | [address] [...] + | TILA | [address] | [place] [address] | | | DIAGNOSTIC | [address] [...] + | [facility] - | [address] | [place] [address] | | | [place] | | | | + + + [...] + | [facility] - | [address] | [place] [address] | | | [place] | | | [...] + | [facility] - | [address] | [place] [address] | | | [place] | | | [...] + | [facility] - | [address] | [place] [address] | | | [place] | | | | + + + [...] by | | | | | | [employer],[address] | | | | | | [address], [facility],[place] | | | | | | [address] | | | | | | [phone].FaceFirst ([employer]). | | | | | | Faisal [...] [facility] | [address] | [place], [place] | | | UNIV P[place] - INTFC | | [address] | | + + + + + [...] | + + + + + | [facility] - | [address] | [place] [address] | | | [place] | | | [...] by | | | | | | [employer],[address] | | | | | | [facility],[place] | | | | | | [address] | | | | | | [phone].[email or web address]. | | | | | | Faisal [...] [facility] | [address] | [place], [place] | | | UN[facility] PTH - INTFC | | [address] | | + + + + + [...] [facility] | [address] | [place] [address] | | | SERVICES, CORE | PARK [...] DANILO [place] | [address] | [place] [address] | | | SERVICES, CORE | PARK [...] | + + + + + | [facility] | [address] | [place] [address] | | | SERVICES, CORE | PARK [...] | + + + + + | [facility] | [address] | [place] [address] | | | SERVICES, CORE | LONG [...] [facility] | [address] | [place] [address] | | | [place] | LONG [...] | | | LABORATORY | | | CHINESE | | | SERVICES, | | | [...] | + + + + + | [facility] | [address] | [place] [address] | | | SERVICES, CORE | LONG [...]
--- OUTSIDE RECORDS SUMMARY | ~2019-02-17 | XMS | Encounter Summary ---
Demographics + + + | Address | [address] | | | [place] [address] | + + + | Home Phone [...] Team Providers + +------+ + | Care Engine Service Repairer Name | Role | Phone | [...] | | KIDNEY TRANSPLANT | [address], | | | | | [address] [place] | [place] [address] | | | | | [address] [place] [address] | [phone] | | | | | [address] | | | | | | [phone] | | | +--------+ + + + [...] DAVIDSON | | | | | | [place] [address] | | | | | | [phone] | | | | | | | | +--------+---------+ + + + documented as of this encounter Visit Diagnoses Not on filedocumented in this encounter"
--- OUTSIDE RECORDS SUMMARY | ~2019-02-17 | XMS | Encounter Summary ---
Demographics + + + | Address | [address] | | | [place] [address] | + + + | Home Phone [...] | Author | [facility] | | | and Josephana | + + + | Organization | [facility] | [...] Team Providers + +------+ + | Care Antique Collector Name | Role | Phone | [...] [address] [place] | [place] [address] | to return call to | | | | [address] | [phone] | complete intake | | | | [address] | | quest.) | | | | [phone] | | | +--------+ + + + [...] DAVIDSON | | | | | | [place] [address] | | | | | | [phone] | | | | | | | | +--------+---------+ + + + documented as of this encounter Visit Diagnoses Not on filedocumented in this encounter"
--- OUTSIDE RECORDS SUMMARY | ~2019-02-17 | XMS | Encounter Summary ---
Demographics + + + | Address | [address] | | | [place] [address] | + + + | Home Phone [...] | | | | | [place] [address] | | + + + + + | Thania Mallory | ECON | [address] | | | | | [place] [address] | | + + + + + | Deidra Weldon | ECON | [address] | | | | | [place] | | | | | [address] | | + + + + + Care Team Providers + +------+ + | Care Geographic Information Systems Manager Name | Role | Phone | + +------+ + | Shahid Camargo MD | PCP | | + +------+ + Encounter Details +--------+ + + + + | Date | Type | Department | Care Team | Description | +--------+ + + + + | 12/19/ | Document-Sc | UNKNOWN DEPARTMENT | Unknown . | | | 2012 | anned | [address] | | | | | | [facility] | | | | | | [place], [place] | | | | | | [address] | | | +--------+ + + + [...] Denise | | | | | | [place], [place] | | | | | | [address] | | | | | | [phone] | | | | | | | | +--------+ + + + + documented as of this encounter Visit Diagnoses Not on filedocumented in this encounter"
--- OUTSIDE RECORDS SUMMARY | ~2019-02-17 | XMS | Encounter Summary ---
Demographics + + + | Address | [address] | | | [place] [address] | + + + | Home Phone [...] | | | | | [place] [address] | | + + + + + | Thania Mallory | ECON | [address] | | | | | [place] [address] | | + + + + + | Deidra Weldon | ECON | [address] | | | | | [place] | | | | | [address] | | + + + + + Care Team Providers + +------+ + | Care Elevator Repair Mechanic Name | Role | Phone | [...] (pt | | | | ANNALISA [facility] | [address] | potential | | | | Rd [place], [place] | [place], [place] | donor/checking in | | | | [address] | [address] | with SW) | | | | [phone] | | | +--------+ + + + [...] [place] | | | | | | [address] | | | | | | [phone] | | | | | | | | +--------+ + + + + documented as of this encounter Visit Diagnoses Not on filedocumented in this encounter"
--- OUTSIDE RECORDS SUMMARY | ~2019-02-17 | XMS | Encounter Summary ---
Demographics + + + | Address | [address] | | | [place] [address] | + + + | Home Phone [...] | | | | | [place] [address] | | + + + + + | Thania Mallory | ECON | [address] | | | | | [place] [address] | | + + + + + | Deidra Weldon | ECON | [address] | | | | | [place] | | | | | [address] | | + + + + + [...] | Nephrology at | MD Emanuel [address] | | | | | Alexander | [place] [address] | | | | | [facility] | [place], [place] | | | | | [address] | [address] | | | | | Mailcode: DCH7 | [phone] | | | | | Alexander | | | | | | [place], [place] | | | | | | [address] | | | | | | [phone] | | | +--------+ + + + [...] Denise | | | | | | [place] | | | | | | [address] | | | | | | [phone] | | | | | | | | +--------+ + + + + documented as of this encounter Visit Diagnoses Not on filedocumented in this encounter"
--- OUTSIDE RECORDS SUMMARY | ~2019-02-17 | XMS | Encounter Summary ---
Demographics + + + | Address | [address] | | | [place] [address] | + + + | Home Phone [...] | | | | | [place] [address] | | + + + + + | Thania Mallory | ECON | [address] | | | | | [place] [address] | | + + + + + | Deidra Louise | ECON | [address] | | | | | [place] | | | | | [address] | | + + + + + Care Team Providers + +------+ + | Care Operations Supervisor Chemical Cleaning Name | Role | Phone | + [...] | | (HCC) [facility] | Elias | [place] | | | | | (Amelie | [address] | Mailcode: | | | | | nlein | [place], [place] | [address] | | | | | purpura) | [address] | [place] | | | | | nephritis | Phone: | [place], [place] | | | | | (HCC) | [phone] | [address] | | | | | Hemodialysis | Fax: | Phone: | | | | | status | [phone] | [phone] | | | | | ([facility]) | | Fax: | | | | | Chronic | | [phone] | | | | | kidney | [...] | Appointment | | | | ANNALISA [facility] | [facility] | | | | | Rd [place], [place] | [place], [place] | | | | | [address] | [address] | | | | | [phone] | | | +--------+ + + + [...] Denise | | | | | | [place], [place] | | | | | | [address] | | | | | | [phone] | | | | | | | [...] BSA | | | | | | (ANADARKO Z | | | | | | [...] Interface, Cardiology Results - 01/20/2015 2:35 PM [facility] Echocardiography Laboratory | | [address] | | [place] [address] | | ; | | [id number] | | | | Transthoracic Echocardiogram Report | | | | | | NAME: DARA LOUISE Study Date: 01/20/2015 1:18:29 PM | | Order #: [id number] ACC #: [id number] | | | | | | : [...] on 01/20/2015 at 2:35:17 PM | | Medical Equipment Repair Technician: YARITZA KLINE RD | | | | | | cc: | | | | | | Modes utilized | | TTE 15758; Spectral Doppler 47[address]; Color flow Doppler 584[address]; | | | | | | | | Final | + + + + + + + | Performing | Address | City/State/Zipcode | Phone Number | | Organization | | | | + + + + + | [facility] | [address] | [place], [place] | | | CARDIOLOGY | [address] | [address] | | + + + + + [...] | + + + + + | [facility] | [address] | [place] [address] | | | SERVICES, SPECIAL | [address]ARK [...] + | TILA | [address] | [place] [address] | | | DIAGNOSTIC | [address] [...] + | [facility] - | [address] | [place] [address] | | | [place] | | | | + + [...] + | [facility] - | [address] | [place] [address] | | | [place] | | | [...] + | [facility] - | [address] | [place] [address] | | | [place] | | | [...] + | [facility] - | [address] | [place] [address] | | | [place] | | | | + + [...] by | | | | | | [employer],[address] | | | | | | [address]ipp[address] Drew, [facility] | | | | | | [address] | | | | | | [phone]. | | | | | | Faisal [...] [facility] | [address] | [place], [place] | | | UN[place] - INTFC | | [address] | | + + + + + [...] | + + + + + | [place] [facility] - | [address] [place] [address] | [place] [address] | | | [place] | | | [...] by | | | | | | [employer],[address] | | | | | | [facility] | | | | | | [address] | | | | | | [phone]. | | | | | | Faisal [...] [facility] | [address] | [place], [place] | | | UN[facility] [place] - INTFC | | [address] | | + + + + + [...] [facility] | [address] | [place] [address] | | | SERVICES, CORE | PARK [...] DANILO [place] | [address] | [place] [address] | | | SERVICES, CORE | PARK [...] | + + + + + | [facility] | [address] | [place] [address] | | | SERVICES, CORE | PARK [...] | + + + + + | [facility] | [address] | [place] [address] | | | SERVICES, CORE | LONG [...] [facility] | [address] | [place] [address] | | | [place] | LONG [...] | | | LABORATORY | | | URUGUAYAN | | | SERVICES, | | | [...] | + + + + + | [facility] | [address] | [place] [address] | | | SERVICES, CORE | LONG [...]
--- OUTSIDE RECORDS SUMMARY | ~2019-02-17 | XMS | Encounter Summary ---
Demographics + + + | Address | [address] | | | [place] [address] [...] Author | [facility] | | | and Josephana | + + + | Organization | [facility] [...] Providers + +------+ + | Care Television Director Name | Role | Phone | [...] | | | CENTER [address] | [place], [place] | | | | | [address] [place], [place] | [address] | | | | | [address] | [phone] | | | | | [phone] | | | +--------+ + + + [...] DAVIDSON | | | | | | [place] [address] | | | | | | [phone] | | | | | | | | +--------+---------+ + + + documented as of this encounter Visit Diagnoses Not on filedocumented in this encounter"
--- OUTSIDE RECORDS SUMMARY | ~2019-02-17 | XMS | Encounter Summary ---
Demographics + + + | Address | [address] | | | [place] [address] | + + + | Home Phone [...] [facility] | | | and Josephana | + + + | Organization | [facility] | | | [...] Providers + +------+ + | Care Traffic Analyst Name | Role | Phone | + +------+ + PCP | Unavailable | + +------+ + Encounter Details +--------+ + + + + | Date | Type | Department | Care Team | Description | +--------+ + + + + | 06/24/ | Hospital | [facility] | Rik Simon MD | | | 2015 | Encounter | [facility] | [address] | | | | | [address] | [place], [place] | | | | | [place], [place] | [address] | | | | | [address] | [phone] | | | | | [phone] | | | +--------+ + + + [...] different from the original. Progress Notes by Melrin Carter RPH at 06/24/141340 Author: Merlin Carter RPH Service: (none) Author Type: Pharmacist Filed: 06/24/141340 Date of Service: 06/24/141340 Status: Signed Dial Printer: Merlin Carter RPH (Pharmacist) Clinical Pharmacy Note: [...] - 1.00 mg/dL Final Testing performed at [facility];[address];[place] [address] CREATININE: 7.55 mg/dL ABNORMAL (06/24/14 1045) Estimated creatinine clearance - 14.7 mL/min Pharmacy dosing for renal function per Dr. Simon. Currently, there are no medications needing to be adjusted. Pharmacy will continue to monit or for changes in medication orders and in renal function and adjust accordingly. Merlin Carter [facility] 06/24/2014 1:41 PM docume nted [...] DAVIDSON | | | | | | [place] [address] | | | | | | [phone] | | | | | | | [...] LAB | | | | [address]vd;[place] [address] | | | | + + + + + + | Antibody | NEGATIVE | | EXTERNAL | | | Screen | | | LAB | | + + + + + + | Antibody | Testing performed at | | EXTERNAL | | | Screen | [facility];[address] | | LAB | | | | [address];[place] [address] | | | | + + + + + + | [facility] | [id number] | | EXTERNAL | | | | | | LAB | | + + + + + + | BB BAND | Testing performed at | | EXTERNAL | | | | [facility];[address] | | LAB | | | | [address];[place] [address] | | | | + + + [...] | | | | | performed at [facility] | | | | | | [facility];[place], [place] | | | | | | [address] | | | | + + + [...] | | | QUALITATIVE | performed at [facility] | | LAB | | | | [address];[place], [place] | | | | | | [address] | | | | + + [...] EXTERNAL | | | | performed at [facility];[address] | mmol/L | LAB | | | | [address];[place], [place] | | | | | | [address] | | | | + + + + + + | K | 4.3Comment: Testing | 3.5 - 4.9 | EXTERNAL | | | | performed at [facility];[address] | mmol/L | LAB | | | | [address];[place] | | | | | | [address] | | | | + + + + + + | Cl | 101Comment: Testing | 99 - 109 mmol/L | EXTERNAL | | | | performed at [facility];[address] | | LAB | | | | [address];[place] | | | | | | [address] | | | | + + + + + + | CO2 | 23Comment: Testing | 23 - 32 mmol/L | EXTERNAL | | | | performed at [facility];[address] | | LAB | | | | [address];[place] | | | | | | [address] | | | | + + + + + + | Anion Gap | 16Comment: Testing | 5 - 20 mmol/L | EXTERNAL | | | | performed at [facility];[address] | | LAB | | | | [address];[place] | | | | | | [address] | | | | + + + + + + | Glucose, | 84Comment: Testing | 65 - 99 mg/dL | EXTERNAL | | | Fasting | performed at [facility];[address] | | LAB | | | | [address];[place] | | | | | | [address] | | | | + + + + + + | BUN | 40 (H)Comment: Testing | 8 - 25 mg/dL | EXTERNAL | | | | performed at [facility];[address] | | LAB | | | | [address];[place] | | | | | | [address] | | | | + + + + + + | Creatinine | 7.55 (H)Comment: Testing | 0.50 - 1.00 | EXTERNAL | | | | performed at [facility];888 | mg/dL | LAB | | | | [address];[place] | | | | | | [address] | | | | + + + + + + | BUN/Creatin | 5Comment: Testing | | EXTERNAL | | | ine Ratio | performed at [facility];[address] | | LAB | | | | [address];[place] | | | | | | [id number] | | | | + + + + + + | Calcium | 9.8Comment: Testing | 8.5 - 10.5 | EXTERNAL | | | | performed at [facility] [place] | mg/dL | LAB | | | | [address];[place] | | | | | | [address] | | | | + + + + + + | Estimated | CALCULATION NOT | mL/min/1.73m2 | EXTERNAL | | | GFR | PERFORMED. RESULT NOT | | LAB | | | | VALID IF AGE LT 20 | | | | | | YEARS.Comment: Testing | | | | | | performed at [facility] [place];[address] | | | | | | [address];[place] | | | | | | [address] | | | | + + + [...]
--- OUTSIDE RECORDS SUMMARY | ~2019-02-17 | XMS | Encounter Summary ---
Demographics + + + | Address | [address] | | | [place] [address] | + + + | Home Phone [...] | | | | | [place] [address] | | + + + + + | Thania Mallory | ECON | [address] | | | | | [place] [address] | | + + + + + | Deidra Weldon | ECON | [address] | | | | | [place] | | | | | [address] | | + + + + + Care Team Providers + +------+ + | Care Locks Tender Name | Role | Phone | [...] | Family sheet) | | | | [address] | [place] | | | | | Loop Mailcode: | [place], [place] | | | | | [address] [facility]ician[facility] | [address] | | | | | [address] | [phone] | | | | | [place], [place] | | | | | | [address] | | | | | | [phone] | | | +--------+ + + + [...] Denise | | | | | | [place] | | | | | | [address] | | | | | | [phone] | | | | | | | | +--------+ + + + + documented as of this encounter Visit Diagnoses Not on filedocumented in this encounter"
--- OUTSIDE RECORDS SUMMARY | ~2019-02-17 | XMS | Encounter Summary ---
Demographics + + + | Address | [address] | | | [place] [address] | + + + | Home Phone [...] | | | | | [place] [address] | | + + + + + | Thania Mallory | ECON | [address] | | | | | [place] [address] | | + + + + + | Deidra Weldon | ECON | [address] | | | | | [place] | | | | | [address] | | + + + + + Care Team Providers + +------+ + | Care Order Packer Name | Role | Phone | + +------+ + | Shahid Camargo MD | PCP | | + +------+ + Reason for Visit +--------+ + | Reason | Comments | +--------+ + | Other | Requested [id number] | +--------+ + Encounter Details +--------+ + + + + | Date | Type | Department | Care Team | Description | +--------+ + + + + | 11/15/ | Telephone | Transplant | Jesus Edmond, | Other (Requested | | 2012 | | Coordinators [address] | [address] | [id number]) | | | | ANNALISA Hoffmann [facility] | [facility] | | | | | [place], [place] | [place], [place] | | | | | [address] | [address] | | | | | [phone] | [phone] | | | | | | | [...] Denise | | | | | | [place], [place] | | | | | | [address] | | | | | | [phone] | | | | | | | | +--------+ + + + + documented as of this encounter Visit Diagnoses Not on filedocumented in this encounter"
--- OUTSIDE RECORDS SUMMARY | ~2019-02-17 | XMS | Encounter Summary ---
Demographics + + + | Address | [address] | | | [place] [address] | + + + | Home Phone [...] | | | | | [place] [address] | | + + + + + | Thania Mallory | ECON | [address] | | | | | [place] [address] | | + + + + + | Deidra Weldon | ECON | [address] | | | | | [place] | | | | | [address] | | + + + + + Care Team Providers + +------+ + | Care Community Relations Specialist Name | Role | Phone | [...] | | | [place], | [place] [address] | | | | | [place] [address] | [phone] | | | | | | | [...] Denise | | | | | | [place], [place] | | | | | | [address] | | | | | | [phone] | | | | | | | [...] [facility] - | [address] | [place] [address] | | | IMMUNOGENETICS/TRANS | [address] | | | | [facility] | | | | + + + + + documented in this encounter Visit Diagnoses Not on filedocumented in this encounter"
--- OUTSIDE RECORDS SUMMARY | ~2019-02-17 | XMS | Encounter Summary ---
Demographics + + + | Address | [address] | | | [place] [address] | + + + | Home Phone [...] Team Providers + +------+ + | Care Angiography Technologist Name | Role | Phone | [...] NEPHROLOGY [address] | MD [address] | | | | | [address] | [address] [place] | | | | | [place], [place] | [place] [address] | | | | | [address] | [phone] | | | | | [phone] | | | +--------+ + + + [...] [place] | | | | | | [place] [address] | | | | | | [phone] | | | | | | | | +--------+---------+ + + + documented as of this encounter Visit Diagnoses Not on filedocumented in this encounter"
--- OUTSIDE RECORDS SUMMARY | ~2019-02-17 | XMS | Encounter Summary ---
Demographics + + + | Address | [address] | | | [place] [address] | + + + | Home Phone [...] | Author | [facility] | | | and Josephana | + + + | Organization | [facility] | | [...] Providers + +------+ + | Care Wood Fence Erector Name | Role | Phone | + [...] | | [address] | [place], [address] | | | | | [place], [place] | [place], [place] | | | | | [address] | [address] | | | | | [phone] | | | +--------+--------+ + + + [...] [place] | | | | | | [place] [address] | | | | | | [phone] | | | | | | | | +--------+---------+ + + + documented as of this encounter Visit Diagnoses Not on filedocumented in this encounter"
--- OUTSIDE RECORDS SUMMARY | ~2019-02-17 | XMS | Encounter Summary ---
Demographics + + + | Address | [address] | | | [place] [address] | + + + | Home Phone [...] | | | | | [place] [address] | | + + + + + | Thania Mallory | ECON | [address] | | | | | [place] [address] | | + + + + + | Deidra Weldon | ECON | [address] | | | | | [place] | | | | | [address] | | + + + + + Care Team Providers + +------+ + | Care Drawbridge Tender Name | Role | Phone | [...] ANNALISA [facility] | [facility] | | | | | Rd [place], [place] | [place], [place] | | | | | [address] | [address] | | | | | [phone] | | | +--------+ + + + [...] Denise | | | | | | [place], [place] | | | | | | [address] | | | | | | [phone] | | | | | | | | +--------+ + + + + documented as of this encounter Visit Diagnoses Not on filedocumented in this encounter"
--- OUTSIDE RECORDS SUMMARY | ~2019-02-17 | XMS | Encounter Summary ---
Demographics + + + | Address | [address] | | | [place] [address] | + + + | Home Phone [...] | | | | | [place] [address] | | + + + + + | Thania Mallory | ECON | [address] | | | | | [place] [address] | | + + + + + | Deidra Weldon | ECON | [address] | | | | | [place] | | | | | [address] | | + + + + + Care Team Providers + +------+ + | Care Ripsaw Operator Name | Role | Phone | [...] - Renal | | | | [facility] | [facility] | | | | | Rd [place], [place] | [place], [place] | | | | | [address] | [address] | | | | | [phone] | | | +--------+ + + + [...] Denise | | | | | | [place], [place] | | | | | | [address] | | | | | | [phone] | | | | | | | [...]
--- OUTSIDE RECORDS SUMMARY | ~2019-02-17 | XMS | Encounter Summary ---
Demographics + + + | Address | [address] | | | [place] [address] | + + + | Home Phone [...] Author | [facility] | | | and Josephana | + + + | Organization | [facility] [...] Team Providers + +------+ + | Care Shaper Machine Hand Name | Role | Phone | [...] + + | 11/13/ | Telephone | [facility] | Silvia Rabago | DME (OXYGEN) | | 2019 | | [address] | | | | | [place] | | | | | | [address] | | | | | | [phone] | | | +--------+ + + + [...] DAV[place] | | | | | | [facility] [address] | | | | | | [phone] | | | | | | | | +--------+---------+ + + + documented as of this encounter Visit Diagnoses Not on filedocumented in this encounter"
--- OUTSIDE RECORDS SUMMARY | ~2019-02-17 | XMS | Encounter Summary ---
Demographics + + + | Address | [address] | | | [place] [address] | + + + | Home Phone [...] Author | [facility] | | | and Josephana | + + + | Organization | [facility] | | | and [...] Providers + +------+ + | Care Metal Flow Coordinator Name | Role | Phone | [...] ([facility]) | [address] [place] | [place], | | | | | | [place], [place] | [place] [address] | | | | | | [address] | Phone: | | | | | | Phone: | [phone] | | | | | | [phone] | Fax: | | | | | | Fax: | [phone] | | | | | | [phone] | | +--------+ + + + + + Encounter Details +--------+ + + + + | Date | Type | Department | Care Team | Description | +--------+ + + + + | 02/03/ | Orders Only | [facility] [place] | Jorje Camp | ESRD (end stage | | 2013 | | NEPHROLOGY [address] | M, DO | renal disease) ([facility]) | | | | [address] | [place], [address] | (Primary Dx) | | | | [place], [place] | [place], [place] | | | | | [address] | [address] | | | | | [phone] | | | +--------+ + + + [...] | | | | [place] [address] | | | | | | [phone] | | | | | | | [...] | Referral | e | renal disease) ([facility]) | | | Referral | | | | | + + +--------+ + + documented as of this encounter Visit Diagnoses + + | Diagnosis | + + | ESRD (end stage renal disease) ([facility]) - Primary End stage renal disease | + + documented in this encounter"
--- OUTSIDE RECORDS SUMMARY | ~2019-02-17 | XMS | Encounter Summary ---
Demographics + + + | Address | [address] | | | [place] [address] | + + + | Home Phone [...] | Author | [facility] | | | and Josephana | + + + | Organization | [facility] | | | and Josephana [...] Team Providers + +------+ + | Care Aids Nurse Name | Role | Phone | + +------+ + PCP | Unavailable | + +------+ + Encounter Details +--------+ + + + + | Date | Type | Department | Care Team | Description | +--------+ + + + + | 07/09/ | Hospital | [facility] | Colten Hutchins MD | AV fistula | | 2017 | Encounter | [facility] | [address] | thrombosis, initial | | | | CLINICAL DECISION | [place] | encounter ([facility]) | | | | [address] | [address] | | | | | [place], [place] | | | | | | [address] | | | | | | [phone] | | | +--------+ + + + [...] 07/09/161821 Date of Service: 07/09/161820 Status: Signed Computer Technology Teacher: Catherine Lenz, RN (Registered Nurse) Patient stable [...] [place] | | | | | | [place] [address] | | | | | | [phone] | | | | | | | [...] At | + + + | Successful jainism of flow within the left brachiocephalic | [...] | The microaccesses were exchanged to 6 Algerian sheaths. Patient was | | | heparinized. [...] | | stent. Intraprocedural fistulogram was demonstrated jainism of | | | flow but severe [...] access. The microaccesses were exchanged to 6 Algerian sheaths. Patient was | | heparinized. Via [...] stent. Intraprocedural fistulogram was | | demonstrated jainism of flow but severe recurrent in-stent restenosis [...] central veins are widely patent. IMPRESSION: Successful jainism of flow within the | | left [...] At | + + + | Successful jainism of flow within the left brachiocephalic | [...] | The microaccesses were exchanged to 6 Algerian sheaths. Patient was | | | heparinized. [...] | | stent. Intraprocedural fistulogram was demonstrated jainism of | | | flow but severe [...] access. The microaccesses were exchanged to 6 Algerian sheaths. Patient was | | heparinized. Via [...] stent. Intraprocedural fistulogram was | | demonstrated jainism of flow but severe recurrent in-stent restenosis [...] central veins are widely patent. IMPRESSION: Successful jainism of flow within the | | left [...] | Patient | performed at [facility];[address] | | LAB | | | | [address] [facility];[place], [place] | | | | | | [address] | | | | + + + [...] [facility] [place];[address] | | | | | | [address];[place], [place] | | | | | | [address] | | | | + + + [...] | Estimate | performed at [facility] | | LAB | | | | [address];[place] | | | | | | [address] | | | | + + + [...] [place];[address] | | | | | | [address];[place] [address] | | | | + + + [...]
--- OUTSIDE RECORDS SUMMARY | ~2019-02-17 | XMS | Encounter Summary ---
Demographics + + + | Address | [address] | | | [place] [address] | + + + | Home Phone [...] | | | | | [place] [address] | | + + + + + | Thania Mallory | ECON | [address] | | | | | [place] [address] | | + + + + + | Deidra Weldon | ECON | [address] | | | | | [place] | | | | | [address] | | + + + + + [...] | | | | | Hospital | [facility] | | | | | | [address] | [address] | | | | | | [address] | [place], [place] | | | | | | [place] | [address] | | | | | | [place] | Phone: | | | | | | [address] | [phone] | | | | | | Phone: | | | | | | | [phone] | | | | | | | Fax: | | | | | | | [phone] | | +--------+--------+ + + + + Encounter Details +--------+---------+ + + + | Date | Type | Department | Care Team | Description | +--------+---------+ + + + | 05/24/ | Office | Specialty Clinics | Sudhakar Joy | [facility] | | 2017 | Visit | at [facility] [address] | MD Emanuel [address] | (David | | | | [place] [address] Mailcode: | [address] | purpura) nephritis | | | | [facility] ernbadriana | [place], [place] | (Primary Dx); 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 Her adult forensic structural engineer could refer her to adult transplant when [...] [facility] [address] Mail code [facility] [place], [place] [address] documented in this encounter Plan of Treatment +--------+ + + + + | Date | Type | Specialty | Care Team | Description | +--------+ + + + + | 05/04/ | [facility] | Adult Acute Care | El Starr MD | | | 2022 | Encounter | | [address] | | | | | | [place], [place] | | | | | | [address] | | | | | | [phone] | | | | | | | [...]
--- OUTSIDE RECORDS SUMMARY | ~2019-02-17 | XMS | Encounter Summary ---
Demographics + + + | Address | [address] | | | [place] [address] | + + + | Home Phone [...] | | | | | [place] [address] | | + + + + + | Thania Mallory | ECON | [address] | | | | | [place] [address] | | + + + + + | Deidra Weldon | ECON | [address] | | | | | [place] | | | | | [address] | | + + + + + Care Team Providers + +------+ + | Care Glaze Mixer Name | Role | Phone | + +------+ + | Jonathan Alonso MD | PCP | | + +------+ + Encounter Details +--------+------+ + + + | Date | Type | Department | Care Team | Description | +--------+------+ + + + | 01/20/ | Lab | [facility] Center at [facility] | | 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 [address] | | MEDICARE 5238; [facility] | | | | [address] [place], | | ([place] | | | | [place] [address]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; | | | | [phone] | | Hemodialysis status | | | [...] Denise | | | | | | [place], [place] | | | | | | [address] | | | | | | [phone] | | | | | | | [...] | e | 9:59 AM | MEDICARE 1680 HSP | procedure are in the | [...] | | | | | stage V ([facility]) | | + +--------+ + + [...] | | | | | stage V ([facility]) | | + +--------+ + + [...] | | | | | stage V ([facility]) | | + +--------+ + + [...] status | | | | | | ([facility]) Chronic | | | | | | kidney disease, | | | | | | stage V ([facility]) | | + +--------+ + + [...] | | | | | stage V ([facility]) | | + +--------+ + + + | HIV-1,2 AB/HIV-1 P24 | Routin | 01/20/2015 | Allergic purpura- | Results for this | | AG SCRN | e | 9:59 AM | MEDICARE 2728 [facility] | procedure are in the | | | | PST | ([facility] | results section. | | |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 | | | | | | Hemodialysis status | | | | | | ([facility]) Chronic | | | | | | kidney disease, | | | | | | stage V ([facility]) | | + +--------+ + + [...] | | | PST | ([facility] | results section. | | [...] | | | PST | ([facility] | results section. | | | [...] the | | | | PST | ([facility] | results section. | | [...] | | | PST | ([facility] | results section. | | | [...] | | | PST | ([facility] | results section. | | | [...] | | | PST | ([facility] | results section. | | | [...] | | | PST | ([facility] | results section. | | | [...] | PST | ([facility] | results section. | | | | [...] | | | PST | ([facility] | results section. | | | [...] | + + + + + | [place] [facility] - | [address] | [place] [address] | | | [place] | | | | + + + [...] [facility] | [address] | [place] [address] | | | SERVICES, CORE | PARK [...] [facility] | [address] | [place] [address] | | | SERVICES, SPECIAL | PARK [...] [address] | [place] [address] | | | DIAGNOSTIC | [address] [...] + | [facility] - | [address] | [place], [place] [address] | | | [place] | | | | + + + [...] + | [facility] - | [address] | [place] [address] | | | [place] | | | | + + + [...] + + + + | [facility] | [address] | [place] [address] | | | [place] | | | [...] + | [facility] - | [address] | [place] [address] | | | [place] | | | [...] by | | | | | | [facility],[address] | | | | | | [address], [facility],[place] | | | | | | [address] | | | | | | [phone].Treatspacelab. | | | | | | Faisal mantilla, | | | | | | Jenny ALMEIDA. Director | | | | + + + + + + + + | Specimen | + + | Blood - Blood | + + + + + + + | Performing | Address | City/State[facility] | Phone Number | | Organization | | | | + + + + + | [facility] | [address] | [place], [place] | | | [facility] | | [address] | | + + + + + [...] + + + + | [facility] - | [address] | [place] [address] | | | [place] | | | | + + + [...] by | | | | | | [facility],[address] | | | | | | [place] | | | | | | [address] | | | | | | [phone].Lockboxlab. | | | | | | Faisal [...] [facility] | [address] | [place], [place] | | | [facility] | | [address] | | + + + + + [...] [facility] | [address] | [place] [address] | | | SERVICES, CORE | PARK [...] | + + + + + | [facility] | [address] | [place] [address] | | | SERVICES, CORE | LONG [...] [facility] | [address] | [place] [address] | | | SERVICES, CORE | PARK [...] [facility] | [address] | [place] [address] | | | SERVICES, CORE | PARK [...] + + + + + | [facility] | [address] | [place] [address] | | | SERVICES, HOMERO | LONG [...] | | | LABORATORY | | | [place] | | | SERVICES, | | | [...] [facility] | [address] | [place] [address] | | | SERVICES, CORE | PARK [...]
--- OUTSIDE RECORDS SUMMARY | ~2019-02-17 | XMS | Encounter Summary ---
Demographics + + + | Address | [address] | | | [place] [address] | + + + | Home Phone [...] | | | | | [place] [address] | | + + + + + | Thania Mallory | ECON | [address] | | | | | [place] [address] | | + + + + + | Deidra Weldon | ECON | [address] | | | | | [place] | | | | | [address] | | + + + + + Care Team Providers + +------+ + | Care Grounds Maintenance Worker Name | Role | Phone [...] Change (Close | | | | [address]NAL[address] [facility] | [facility] | referral) | | | | Rd [place], [place] | [facility] [place] | | | | | [address] | [address] | | | | | [phone] | | | +--------+ + + + [...] [place] | | | | | | [address] | | | | | | [phone] | | | | | | | | +--------+ + + + + documented as of this encounter Visit Diagnoses Not on filedocumented in this encounter"
--- OUTSIDE RECORDS SUMMARY | ~2019-02-17 | XMS | Encounter Summary ---
[...] | | | | | [place] [address] | | + + + + + | Thania Mallory | ECON | [address] | | | | | [place] [address] | | + + + + + | Deidra Weldon | ECON | [address] | | | | | [place] | | | | | [address] | | + + + + + Care Team Providers + +------+ + | Care Fur Remodeler Name | Role | Phone | + +------+ + PCP | Unavailable | + +------+ + Reason for Visit + + + | Reason | Comments | + + + | Transplant Form | traffic worker 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 | | Update | [...] (Social | | | | ANNAL[address] [facility] | [facility] | worker dates | | | | [place], [place] | [place], [place] | updated) | | | | [address] | [address] | | | | | [phone] | [phone] | | | | | | | [...] Denise | | | | | | [place], [place] | | | | | | [address] | | | | | | [phone] | | | | | | | | +--------+ + + + + documented as of this encounter Visit Diagnoses Not on filedocumented in this encounter"
--- OUTSIDE RECORDS SUMMARY | ~2019-02-17 | XMS | Encounter Summary ---
Demographics + + + | Address | [address] | | | [place] [address] | + + + | Home Phone [...] Author | [facility] | | | and Josephana | + + + | Organization | [facility] [...] Team Providers + +------+ + | Care Dumper Operator Name | Role | Phone [...] | [address] | [place], [address] | | | | | [place], [place] | [place], [place] | | | | | [address] | [address] | | | | | [phone] | | | +--------+--------+ + + + [...] | | | | | [place] [address] | | | | | | [phone] | | | | | | | | +--------+---------+ + + + documented as of this encounter Visit Diagnoses Not on filedocumented in this encounter"
--- OUTSIDE RECORDS SUMMARY | ~2019-02-17 | XMS | Encounter Summary ---
Demographics + + + | Address | [address] | | | [place] [address] [...] + | Author | [facility] | | | and Josephana | + + + | Organization | [facility] | [...] Providers + +------+ + | Care Activities Volunteer Name | Role | Phone | [...] | | | | [address] | [place], [place] | [place], [place] | | | | | stage renal | [address] | [address] Phone: | | | | | disease | Phone: | [phone] | | | | | ([facility]) | [phone] | Fax: | | | | | Infection | Fax: | [phone] | | | | | and | [phone] | | | | | | inflammatory [...] | | [address] | [place], [address] | (Primary Dx); | | | | [place], [place] | [place], [place] | Anemia in ESRD | | | | [address] | [address] | (end-stage renal | | | | [phone] | | disease) ([facility]) | +--------+ + + + + Social [...] CC: Jamil Joy MD, Renal Transplant Clinic, [facility] Blake Chavarria MD, FACS documented in thi [...] [place] | | | | | | [place] [address] | | | | | | [phone] | | | | | | | [...]
--- OUTSIDE RECORDS SUMMARY | ~2019-02-17 | XMS | Encounter Summary ---
Demographics + + + | Address | [address] | | | [place] [address] | + + + | Home Phone [...] + + | Author | [facility] | | | and Josephana | + + + | Organization | [facility] | [...] Team Providers + +------+ + | Care Laser Systems Engineer Name | Role | Phone | + +------+ + PCP | Unavailable | + +------+ + Encounter Details +--------+ + + + + | Date | Type | Department | Care Team | Description | +--------+ + + + + | 06/11/ | Hospital | [facility] | | | | 2008 - | Encounter | MED CTR OP REHAB | | | | | | [address] | | | | 07/03/ | | [place] [address] | | | | 2008 | | [phone] | | | +--------+ + + + [...] DAV[place]SON | | | | | | [place] [address] | | | | | | [phone] | | | | | | | | +--------+---------+ + + + documented as of this encounter Visit Diagnoses Not on filedocumented in this encounter"
--- OUTSIDE RECORDS SUMMARY | ~2019-02-17 | XMS | Encounter Summary ---
Demographics + + + | Address | [address] | | | [place] [address] | + + + | Home Phone [...] | | | | | [place] [address] | | + + + + + | Thania Mallory | ECON | [address] | | | | | [place] [address] | | + + + + + | Deidra Weldon | ECON | [address] | | | | | [place] | | | | | [address] | | + + + + + Care Team Providers + +------+ + | Care Lay Out Machine Operator Name | Role | [...] | Nephrology at | MD Emanuel [address] [facility] | | | | | [place] | Elias Elizondo | | | | | [facility] | [place], [place] | | | | | [address] | [address] | | | | | Mailcode: DCH7 | [phone] | | | | | Alexander | | | | | | [place], [place] | | | | | | [address] | | | | | | [phone] | | | +--------+ + + + [...] Denise | | | | | | [place], [place] | | | | | | [address] | | | | | | [phone] | | | | | | | [...] + + | [facility] - | [address] | [place] | [phone] | | [place] | | | | + + + + + documented in this encounter Visit Diagnoses Not on filedocumented in this encounter"
--- OUTSIDE RECORDS SUMMARY | ~2019-02-17 | XMS | Encounter Summary ---
Demographics + + + | Address | [address] | | | [place] [address] | + + + | Home Phone [...] | | | | | [place] [address] | | + + + + + | Thania Mallory | ECON | [address] | | | | | [place] [address] | | + + + + + | Deidra Weldon | ECON | [address] | | | | | [place] | | | | | [address] | | + + + + + Care Team Providers + +------+ + | Care Welder Setter Resistance Machine Name | Role | Phone | + +------+ + PCP | Unavailable | + +------+ + Encounter Details +--------+ + + + + | Date | Type | Department | Care Team | Description | +--------+ + + + + | 04/09/ | Abstract | Pediatric | Sudhakar Joy | | | 2013 | | Nephrology at | MD Emanuel [address] [facility] | | | | | [place] | Elias Elizondo | | | | | [facility] | [place], [place] | | | | | [address] | [address] | | | | | Mailcode: DCH7 | [phone] | | | | | Alexander | | | | | | [place], [place] | | | | | | [address] | | | | | | [phone] | | | +--------+ + + + [...] Denise | | | | | | [place], [place] | | | | | | [address] | | | | | | [phone] | | | | | | | | +--------+ + + + + documented as of this encounter Visit Diagnoses Not on filedocumented in this encounter"
--- OUTSIDE RECORDS SUMMARY | ~2019-02-17 | XMS | Encounter Summary ---
Demographics + + + | Address | [address] | | | [place] [address] | + + + | Home Phone [...] Author | [facility] | | | and Josephana | + + + | Organization | [facility] | [...] Team Providers + +------+ + | Care Aerosol Supervisor Name | Role | Phone | + +------+ + | Tien Nicholson MD | PCP | | + +------+ + Encounter Details +--------+ + + + + | Date | Type | Department | Care Team | Description | +--------+ + + + + | 10/17/ | Hospital | [facility] | Nikita, | SOB (shortness of | | 2019 - | Encounter | [facility] | MD Naresh [address] | breath); Pleural | | | | CARE FLOOR [address] | effusion on right; | | 10/20/ | | [address] | [place] [address] | ESRD needing | | 2019 | | [place], [place] | [phone] | dialysis ([facility]); End | | | | [address] | | stage renal disease | | | | [phone] | | (HCC) | +--------+ + + [...] + + +---------+ + + | B Mjrbmpr-R-Zsnil | Take 1 tablet by | | [...] 10/19/182357 Date of Service: 10/19/182357 Status: Signed Cosmetic Assembler: Vira Ford RN (Registered Nurse) No acute [...] 10/19/181827 Date of Service: 10/19/181826 Status: Signed Cosmetic Assembler: Trent Jovel RN (Registered Nurse) Dialysis completed today 2.4L removed. Remains on fluid restriction. Medicated for pain x 2. End of shift review complete. Trent Jovel RN onver arturo Transaction, Provider Unknown - 10/19/2018 3:36 PM PDT Case Management by DORON Diallo at 10/19/18 1536 Author: DORON Diallo Service: (none) Author Type: Chemistry Faculty Member Filed: 10/19/18 1537 Date of Service: 10/19/18 1536 Status: Signed Cosmetic Assembler: DORON Diallo (Chemistry Faculty Member) Discharge planning: Return home when medically ready for discharge. Pt is receiving dialysi s on MWF. Pt is currently on 4L O2, pt may need a home O2 evaluation at discharge. Antonio Carrasco MD - 10/19/2018 12:14 PM PDTFormatting of this note might be different from the orig inal. Progress Notes by Antonio Pabon MD at 10/19/18 7984 Author: Antonio Pabon MD Service: Nephrology Author Type: Physician Filed: 10/25/18 6750 Date of Service: 10/19/18 1214 Status: Addendum Cosmetic Assembler: Antonio Pabon MD (Physician) Related Notes: Original Note by Antonio Pabon MD (Physician) filed at 10/25/18 0307 [facility]: NEPHROLOGY Progress Note Dara Weldon 23 y.o. [id number] 4465/[id number] female TIEN NICHOLSON 23-year-old female with [...] AV FISTULA; Surgeon: Rik Simon MD; Location: [facility] OR; Service: Vascula r; Laterality: Left; cephalic AV FISTULA REPAIR Left 03/07/2014 Procedure: AV FISTULA - GRAFT REPAIR/REVISION; Surgeon: Rik Simon MD; Location: [facility] OR; Service: Vascular; Laterality: Left; DECLOT GRAFT Left 03/07/2014 Procedure: GRAFT - DECLOT; Surgeon: Rik Simon MD; Location: [facility] OR; Service: Vas cular; Laterality: Left; DIALYSIS FISTULA CREATION N/A 04/08/2014 Procedure: DIALYSIS CATHETER - INSERTION; Surgeon: Rik Simon MD; Location: [facility] OR ; Service: Vascular; Laterality: N/A; tunneled catheter LAPAROSCOPIC PERITONEAL DIALYSIS CATHETER INSERTION x2 LAPAROSCOPIC PERITONEAL DIALYSIS CATHETER INSERTION Right 07/2013 current dialysis access MWF dialysis RENAL BIOPSY Left 2003 SUPERFICIALIZATION OF AV FISTULA Left 06/24/2014 Procedure: AV FISTULA - SUPERFICIALIZATION; Surgeon: Rik Simon MD; Location: [facility] OR; Service: Vascular; Laterality: Left; [...] Social History Narrative She lives in [facility]. She does not work. She [...] is punctured with an 5 [address] Helenian Epos centesis catheter. Fluid is aspirated without complication. [...] 1 VIEW (10/17/2018); CHEST TWO V IEWS 85719 (10/17/2018); FINDINGS: Compared to the prior examination [...] MR, severe TR.severe pulmonary hypertens ion Chest d-ebv-hltpxvysyipb with pulmonary edema and large right pleural [...] earlier and charting completed later Dictation software, PointCare, used which may contain error for similar sounding words even af ter review. Personal communication requested for any clarification. inGerber pastrana MD - 10/19/2018 7:48 AM PDT Progress Notes by Gerber Pearson MD at 10/19/18 0748 Author: Gerber Pearson MD Service: Hospitalist Author Type: Physician Filed: 10/19/18 0753 Date of Service: 10/19/1848 Status: Signed Cosmetic Assembler: Gerber Pearson MD (Physician) [facility]: [...] with dyspnea Patient was recently discharged from [facility] on 08/23/2018. For full note, please see ketan agudelo summary from hospitalist. In summary, the patient was admitted for noncardiogenic pulmo nary edema after thoracentesis. At that point, prior to admission, [facility] in [place] on 08/21 where she underwent right th [...] BUN 90 on admission -History of a [place] Schnlein purpura -Last hemodialysis approximately 2 weeks [...] 10/19/18733 Date of Service: 10/19/18733 Status: Signed Cosmetic Assembler: Vira Ford RN (Registered Nurse) No acute changes from shift assessment. VSS. Pt medicated for pain as requested and availab le. End of shift review and 24 hour chart check complete. onver arturo Transaction, Provider Unknown - 10/18/2018 5:01 PM PDT Case Management by DORON Diallo at 10/18/181700 Author: DORON Diallo Service: (none) Author Type: Chemistry Faculty Member Filed: 10/18/181706 Date of Service: 10/18/181700 Status: Signed Cosmetic Assembler: DORON Diallo (Chemistry Faculty Member) Discharge planning: Return home when medically ready for discharge. Gerber Fernandez MD - 10/18/2018 7:46 AM PDT Progress Notes by Gerber Pearson MD at 10/18/18745 Author: Gerber Pearson MD Service: Hospitalist Author Type: Physician Filed: 10/18/18 0751 Date of Service: 10/18/18745 Status: Signed Cosmetic Assembler: Gerber Pearson MD (Physician) [facility]: [...] with dyspnea Patient was recently discharged from [facility] on 08/23/2018. For full note, please see ketan agudelo summary from hospitalist. In summary, the patient was admitted for noncardiogenic pulmo nary edema after thoracentesis. At that point, prior to admission, [facility] in [place] on 08/21 where she underwent right th [...] BUN 90 on admission -History of a [place] Schnlein purpura -Last hemodialysis approximately 2 weeks [...] 10/25/182002 Date of Service: 10/18/18744 Status: Signed Cosmetic Assembler: Antonio Pabon MD (Physician) [facility]: NEPHROLOGY Progress Note Dara Weldon 23 y.o. [id number] 4465/[id number] female [facility] Day: LOS: 1 day 23-year-old [...] AV FISTULA; Surgeon: Rik Simon MD; Location: [facility] OR; Service: Vascula r; Laterality: Left; cephalic AV FISTULA REPAIR Left 03/07/2014 Procedure: AV FISTULA - GRAFT REPAIR/REVISION; Surgeon: Rik Simon MD; Location: [facility] OR; Service: Vascular; Laterality: Left; DECLOT GRAFT Left 03/07/2014 Procedure: GRAFT - DECLOT; Surgeon: Rik Simon MD; Location: [facility]; Service: Vas cular; Laterality: Left; DIALYSIS FISTULA CREATION N/A 04/08/2014 Procedure: DIALYSIS CATHETER - INSERTION; Surgeon: Rik Simon MD; Location: [facility] ; Service: Vascular; Laterality: N/A; tunneled catheter LAPAROSCOPIC PERITONEAL DIALYSIS CATHETER INSERTION x2 LAPAROSCOPIC PERITONEAL DIALYSIS CATHETER INSERTION Right 07/2013 current dialysis access MWF dialysis RENAL BIOPSY Left 2003 SUPERFICIALIZATION OF AV FISTULA Left 06/24/2014 Procedure: AV FISTULA - SUPERFICIALIZATION; Surgeon: Rik Simon MD; Location: [facility]; Service: Vascular; Laterality: Left; [...] Social History Narrative She lives in [facility]. She does not work. She [...] QTC Calculation (Bezet) 469 ms Calculated P [place] 46 degrees Calculated R [place] 127 degrees Calculated T [place] 94 degrees Diagnosis Normal sinus rhythm Right [...] MR, severe TR.severe pulmonary hypertens ion Chest n-ebf-gognmzbvcqbw with pulmonary edema and large right pleural [...] earlier and charting completed later Dictation software, PointCare, used which may contain error for similar [...] 10/18/1853 Date of Service: 10/18/18650 Status: Signed Cosmetic Assembler: Ronnie Vargas RN (Registered Nurse) Pt alert and oriented X 4. PRN pain med given for back pain. No other acute changes durin g shift. Chart check complete onver arturo Transaction, Provider Unknown - 10/17/2018 9:48 AM PDT Case Management by DORON Diallo at 10/17/18 0948 Author: DORON Diallo Service: (none) Author Type: Chemistry Faculty Member Filed: 10/17/1854 Date of Service: 10/17/18947 Status: Signed Cosmetic Assembler: DORON Diallo (Chemistry Faculty Member) 10/17/18 09 Discharge Planning Evaluation Admitting Diagnosis (SOB) Readmission Other (comment) (Last admit 08/20/18) Living Arrangements Alone Support Systems Family members;Friends/neighbors Type of Residence Private residence House type Apartment Independent with ADL's Yes Independent with Mobility Yes Home Care Services No Caregiver after Discharge No Mental Status Oriented Prior functional status (Independent) Power of Hand Straightener No Resources Financial concerns No Transportation issues No Patient/Family concerns No Prescription Plan Yes Name of Pharmacy ([facility] in [place]) Previous home health equipment No Anticipated Disposition Facility Type Home DORON CM met with pt and discussed discharge planning. Pt is a 23 y.o., female admitted for s hortness of breath. Pt resides alone in an apartment at [address], [place] [address]. Pt reported that she has neighbor and friend support. Pt's mother, Thania cheung can be reached at and sister, Saundra can be reached at . Pt reported being independent with ADL's,, IADL's and mobility prior to this admission. Pt denied previous outpatient OT/PT services, home care services and home O2 prior to this admission. Pt reported that she received dialysis from [facility] [place] on MWF prior to this admission . [...] 10/17/18743 Date of Service: 10/17/18743 Status: Signed Cosmetic Assembler: Camilla Moody RPH (Pharmacist) Clinical Pharmacy Note: [...] 0747 Date of Service: 10/17/18716 Status: Signed Cosmetic Assembler: Gerber Pearson MD (Physician) [facility]: [...] with dyspnea Patient was recently discharged from [facility] on 08/23/2018. For full note, please see discha rge summary from hospitalist. In summary, the patient was admitted for noncardiogenic pulmo nary edema after thoracentesis. At that point, prior to admission, she was [facility] in [place] on 08/21 where she underwent right th [...] the case over the phone with patient's instructional coach Dr. Mahmood, recommends medi oly management and [...] creatinine 14, BUN 90 -History of a [place] Schnlein purpura -Last hemodialysis approximately 2 weeks [...] [address] | | | | | | [place] [address] | | | | | | [phone] | | | | | | | [...] | performed at [facility], [address] | | | | | | [facility], | | | | | | [place] [address] | | | | + + + [...] CHEST 1 VIEW (10/17/2018); CHEST TWO VIEWS 24207 | | | (10/17/2018); FINDINGS: Compared to [...] VIEW | | (10/17/2018); CHEST TWO VIEWS 21749 (10/17/2018); | | FINDINGS: | | Compared [...] is punctured with an 5 [address] Helenian Leonar3Doesis catheter. | | | Fluid is aspirated [...] an 5 [address] Helenian Yueh | | OneCardesis catheter. Fluid is aspirated without complication. The [...] | | at [facility], [address] | | | | | | [facility], | | | | | | [place] [address] | | | | | |Testing performed at [facility], [address] [place] [address] | | | | | | | [...] | performed at [facility], [address] | | LAB | | | | Opal [address], | | | | | | [place] [address] | | | | + + + [...] | performed at [facility], [address] | | | | | | [facility], | | | | | | [place] [address] | | | | + + + [...] | | | | | [facility];[address] [place] [address] | | | | | | [facility];[place] [address] | | | | + + [...] EXTERNAL | | | | performed at [facility];[address] | | LAB | | | | Nica [address];[place], [place] | | | | | | [address] | | | | + + + [...] | | | | | [facility];[address] [place] [address] | | | | | | [facility];[place] [address] | | | | + + + [...] EXTERNAL | | | | performed at [facility];[address] | | LAB | | | | [facility];[place], [place] | | | | | | [address] | | | | + + + [...] | | | performed at [facility];[address] | | | | | | Nica [address];[place], [place] | | | | | | [address] | | | | + + + [...] | | | | | [facility];[address] [place] [address] | | | | | | Bl;[place] [address] | | | | + + + [...] | | | | | [facility];[address] [facility] | | | | | | [facility];[place] [address] | | | | + + + [...] | | LAB | | | | [facility];[address] | | | | | | Blvd;[place] [address] | | | | + + + [...]
--- OUTSIDE RECORDS SUMMARY | ~2019-02-17 | XMS | Encounter Summary ---
Demographics + + + | Address | [address] | | | [place] [address] | + + + | Home Phone [...] Author | [facility] | | | and Josephana | + + + | Organization | [facility] | [...] Team Providers + +------+ + | Care Geospatial Specialist Name | Role | Phone | + +------+ + PCP | Unavailable | + +------+ + Encounter Details +--------+ + + + + | Date | Type | Department | Care Team | Description | +--------+ + + + + | 03/19/ | Hospital | [facility] | Bolivar Mcqueen MD | | | 2009 | Encounter | HOSPITAL EMERGENCY | | | | | | CENTER [address] [place], [place] | | | | | | [address] | | | | | | [phone] | | | +--------+ + + + [...] | | | | | [place] [address] | | | | | | [phone] | | | | | | | | +--------+---------+ + + + documented as of this encounter Visit Diagnoses Not on filedocumented in this encounter"
--- OUTSIDE RECORDS SUMMARY | ~2019-02-17 | XMS | Encounter Summary ---
Demographics + + + | Address | [address] | | | [place] [address] | + + + | Home Phone [...] | [facility] | | | and Josephana | + + + | Organization | [facility] | | [...] Providers + +------+ + | Care Inspector Machine Cut Glass Name | Role | Phone | [...] NEPHROLOGY [address] | M, DO [address] [place] | | | | | [address] | [place] | | | | | [place], [place] | [place], [place] | | | | | [address] | [address] | | | | | [phone] | | | +--------+ + + + [...] | | | | | [place] [address] | | | | | | [phone] | | | | | | | | +--------+---------+ + + + documented as of this encounter Visit Diagnoses Not on filedocumented in this encounter"
--- OUTSIDE RECORDS SUMMARY | ~2019-02-17 | XMS | Encounter Summary ---
Demographics + + + | Address | [address] | | | [place] [address] | + + + | Home Phone [...] Author | [facility] | | | and Josephana | + + + | Organization | [facility] [...] Team Providers + +------+ + | Care Attraction Attendant Name | Role | Phone | [...] | | | | [address]) End | [place], [place] | [place], [place] | | | | | stage renal | [address] | [address] Phone: | | | | | disease | Phone: | [phone] | | | | | ([facility]) | [phone] | Fax: | | | | | Infection | Fax: | [phone] | | | | | and | [phone] | | | | | | inflammatory [...] | 10/28/ | Off-Site | [facility] [place] | Jorje Camp | Anemia in ESRD | | 2014 | Visit | NEPHROLOGY [address] | M, DO [address] | (end-stage renal | | | | [address] | [place] | disease) ([facility]) | | | | [place] | [place] | (Primary Dx); ESRD | | | | [address] | [address] | (end stage renal | | | | [phone] | | disease) ([facility]) | [...] matriculating well through her senior year of [employer] and enjoys her school. Outpatient Prescriptions Marked as Taking for the 10/28/13 encounter (Off-Site Visit) with Camille Camp, DO Medication Sig Dispense Refill cholecalciferol (VITAMIN D-3) 1,000 units tablet Take 1,000 Units by mouth Daily. cinacalcet (SENSIPAR) 30 mg tablet Take 30 mg by mouth Daily. [DISCONTINUED] Doxercalciferol (HECTOROL IV) Inject 1 mcg into the vein Three times a w [place]. Epoetin Andres (EPOGEN IJ) 4,400 Units by [...] excellent candidate for a renal allograft. CC: [facility] documented in thi s encounter Plan of Treatment +--------+---------+ + + + | Date | Type | Specialty | Care Team | Description | +--------+---------+ + + + | 03/05/ | Office | Pulmonology | Denny Alexander | | | 2018 | Visit | | Deny Briggs MD [address] | | | | | | [address] | | | | | | [place] [address] | | | | | | [phone] | | | | | | | [...]
--- OUTSIDE RECORDS SUMMARY | ~2019-02-17 | XMS | Clinical Summary ---
Demographics + + + | Address | [address] | | | [place] [address] | + + + | Home Phone [...] | | | | | [place] [address] | | + + + + + | Thania Mallory | ECON | [address] | | | | | [place] [address] | | + + + + + | Deidra Weldon | ECON | [address] | | | | | [place], [place] | | | | | [address] | | + + + + + Care Team Providers + +------+ + | Care Financial Analysis Advisor Name | Role | Phone | + +------+ + | Jonathan Alonso MD | PCP | | + +------+ + Source Comments DANILO is fully live on both EpicCare Ambulatory and EpicCare InPatient.[facility] Allergies + + + + [...] | | | | | | [place], [place] | | | | | | [address] | | | | | | [phone] | | | | | | | [...] | | | | | | | [address] | | + +--------+ +--------+ + +--------+ | FUR MACHINE OPERATOR MEDICAID | FUR MACHINE OPERATOR | xxxxxxxx | Effect | | | [...] | RENAL | | for | | [facility], | | | | RECIPI | | all | | [place] [address] | | | | ENT | | [...] | | al/Fam | | 1995 | [phone] | [address] [place] | | | kamron | | | 2 (Home) | [address] | | | | | | [phone] | | | | | | | 0 (Work) | | + +--------+ +--------+ + + | CORY ALVES | [place] | Mother | [birth year] | [address] | | | l | | [address] | [phone] | [address] [place] | | | Gamal | | | 2 (Home) | [address] | | | g | | | | | + +--------+ +--------+ + +
--- OUTSIDE RECORDS SUMMARY | ~2019-02-17 | XMS | Encounter Summary ---
Demographics + + + | Address | [address] | | | [place] [address] | + + + | Home Phone [...] | | | | | [place] [address] | | + + + + + | Thania Mallory | ECON | [address] | | | | | [place] [address] | | + + + + + | Deidra Weldon | ECON | [address] | | | | | [place] | | | | | [address] | | + + + + + Care Team Providers + +------+ + | Care Guitar Repairer Name | Role | Phone | [...] | Coordinators [address] | consultation (pt | | | | [address] | [address] | request to change | | | | Rd [place], [place] | [place], [place] | clinic appt) | | | | [address] | [address] | | | | | [phone] | | | +--------+ + + + [...] [facility] | | | | | | [address] | | | | | | [phone] | | | | | | | | +--------+ + + + + documented as of this encounter Visit Diagnoses Not on filedocumented in this encounter"
--- OUTSIDE RECORDS SUMMARY | ~2019-02-17 | XMS | Encounter Summary ---
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 [facility] Service: Hospitalist Physician Discharge Summary Patient ID: [...] is to follow up with her regular public health physician, Dr. Hurtado. DISCHARGE DIAGNOSES: 1. End-stage renal [...] Left; Surgeon: Blake Chavarria MD ; Location: [facility] MAIN OR AV FISTULA REPAIR Left 03/07/2014 Procedure: AV FISTULA - GRAFT REPAIR/REVISION; Surgeon: Rik Simon MD; Location: [facility] OR; Service: Vascular; Laterality: Left; biopsy [...] SUPERFICIALIZATION; Surgeon: Emanuel Simon MD; Location: [facility] MAIN OR; Service: Vascular; Laterality: Left; OTHER SURGICAL HISTORY Left 04/08/2014 AV FISTULA PLACEMENT - Procedure: AV FISTULA; Surgeon: Rik Simon MD; Location: [facility] OR; Service: Vascular; Laterality: Left; cephalic OTHER SURGICAL HISTORY Left 03/07/2014 DECLOT GRAFT - Procedure: GRAFT - DECLOT; Surgeon: Rik Simon MD; Location: [facility] OR ; Service: Vascular; Laterality: Left; [...] have: Continued coughing Fever Date Last Reviewed: 02/04/201619999539-8367 [employer]. [address] [place] [address], [place] [address]. All righ ts reserved. This information is [...] by your healthcare provider Date Last Reviewed: 12/05/201519994375-3988 [employer]. [address] [place] [address], [place] [address]. All righ ts reserved. This information is [...] + + +---------+ + + | B Yvvfaoa-J-Uajfu | Take 1 tablet by | | [...] I have discussed the case with the CONSTRUCTION MANAGEMENT ASSISTANT. I agree with his findings & documentation. [...] Carrasco MD - 10/21/2018 3:00 PM PDT [facility] Service: NEPHROLOGY Progress Note Dara Weldon 23 y.o. [id number] female Jonathan Alonso MD Hospital Day: [...] Rik Simon MD; Location: [facility] OR; Service: Vascular; Laterality: Left; biopsy of kidney age 10 DIALYSIS FISTULA CREATION 04/08/2014 Procedure: DIALYSIS CATHETER - INSERTION; Surgeon: Rik Simon MD; Location: [facility] MAIN OR ; Service: Vascular; [...] SUPERFICIALIZATION; Surgeon: Emanuel Simon MD; Location: [facility] MAIN OR; Service: Vascular; Laterality: Left; OTHER SURGICAL HISTORY Left 04/08/2014 AV FISTULA PLACEMENT - Procedure: AV FISTULA; Surgeon: Rik Simon MD; Location: [facility] OR; Service: Vascular; Laterality: Left; cephalic OTHER SURGICAL HISTORY Left 03/07/2014 DECLOT GRAFT - Procedure: GRAFT - DECLOT; Surgeon: Rik Simon MD; Location: [facility] MAIN OR ; Service: Vascular; [...] She lives in [facility]. She does not work. She has 1 [...] MR, severe TR.severe pulmonary hyperten arturo Chest x-zme-vxnorifbbjaw with pulmonary edema and large right pleural [...] earlier and charting completed later Dictation software, Intio, used which may contain error for similar sounding words even af ter review. Personal communication requested for any clarification. Portions of my notes may have been carried over for continuity of care.Electronically ananth d by Antonio Benjamin MD at 10/21/2018 3:11 PM Gerber Fernandez MD - 10/21/2018 7:18 AM PD T [facility] Adult Hospitalist Progress Note Hospital Day: 4 [...] dyspnea improved, currently on 2 L oxygen, maryt nnsaad next cycle of hemodialysis Has been [...] BUN 90 on admission -History of a [place] Schn[place] purpura -Last hemodialysis approximately 2 weeks [...] PearsonCamille D - 10/20/2018 9:09 AM PDT [facility] Adult Hospitalist Progress Note Hospital Day: 3 [...] BUN 90 on admission -History of a [place] Schnlein purpura -Last hemodialysis approximately 2 weeks [...] [place] | | | | | | [place] [address] | | | | | | [phone] | | | | | | | [...] [address], | | | | | | [place] [address] | | | | + + + + + + + + | Specimen | + + | Blood | + + + + + + + | Performing | Address | City/State/Zipcode | Phone Number | | Organization | | | | + + + + + | [facility] | [address] | [place] [address] | [phone] | + + + + + Basic [...] | | | performed at [facility], [address] | | | | | | [facility], | | | | | | [place] [address] | | | | + + + [...] + + | [facility] | [address] | [place] [address] | [phone] | + + + + + Basic [...] | | | performed at [facility], [address] | | | | | | [facility], | | | | | | [place] [address] | | | | + + + [...] + + | [facility] | [address] | [place] [address] | [phone] | + + + + + Basic [...] performed at [facility] | | | | | | [facility];[place], [place] | | | | | | [address] | | | | + + + [...] + + | [facility] | [address] | [place] [address] | [phone] | + + + + + documented in this encounter Visit Diagnoses + + | Diagnosis | + + | Non-cardiogenic pulmonary edema - Primary Pulmonary congestion and hypostasis | + + | ESRD (end stage renal disease) ([facility]) End [...] | | | for platelets less than [address], | | + +---+ | | | [...]
--- OUTSIDE RECORDS SUMMARY | ~2019-02-17 | XMS | Encounter Summary ---
Demographics + + + | Address | [address] | | | [place] [address] | + + + | Home Phone [...] | Author | [facility] | | | and Josephana | + + + | Organization | [facility] | | [...] Providers + +------+ + | Care Chain Mender Name | Role | Phone | [...] + + | 11/12/ | Telephone | [facility] | Silvia Rabago | DME (carlie, cmn, | | 2018 | | [address] | ABRIL Hernandez | [facility]) | | | | [place] | | | | | | [address] | | | | | | [phone] | | | +--------+ + + + [...] | | | | | [place] [address] | | | | | | [phone] | | | | | | | | +--------+---------+ + + + documented as of this encounter Visit Diagnoses Not on filedocumented in this encounter"
--- OUTSIDE RECORDS SUMMARY | ~2019-02-17 | XMS | Encounter Summary ---
Demographics + + + | Address | [address] | | | [place] [address] | + + + | Home Phone [...] + + + | Author | and [facility] | | | and Josephana | + + + | Organization | and [facility] | | [...] Team Providers + +------+ + | Care Yoker Machine Operator Name | Role | Phone [...] | | | | | malfunction, | [place] [address] | [address] | | | | | initial | [address] [place] | [place], | | | | | encounter | [place], [place] | [place] [address] | | | | | ([facility]) | [address] | Phone: | | | | | | Phone: | [phone] | | | | | | [phone] | Fax: | | | | | | Fax: | [phone] | | | | | | [phone] | | +--------+ + + + + [...] fistula | MD [address] | [address] [place] | | | | | malfunction, | [place] | [place], | | | | | initial | [address] [place] | [place] [address] | | | | | encounter | [place], [place] | Phone: | | | | | ([facility]) | [address] | [phone] | | | | | Procedures | Phone: | Fax: | | | | | IR Procedure | [phone] | [phone] | | | | | [address] | Fax: | | | | | | NEEDLE/CATH | [phone] | | | | | | A-V [...] NEPHROLOGY [address] | MD [address] [place] | malfunction, initial | | | | [address] | [address] [place] | encounter (HCC) | | | | [place], [place] | [place] [address] | (Primary Dx) | | | | [address] | [phone] | | | | | [phone] | | | +--------+ + + + [...] [place] | | | | | | [place] [address] | | | | | | [phone] | | | | | | | [...] | Dialysis AV fistula malfunction, initial encounter ([facility]) - Primary | + + documented in this encounter"
--- OUTSIDE RECORDS SUMMARY | ~2019-02-17 | XMS | Encounter Summary ---
Demographics + + + | Address | [address] | | | [place] [address] | + + + | Home Phone [...] | | | | | [place] [address] | | + + + + + | Thania Mallory | ECON | [address] | | | | | [place] [address] | | + + + + + | Deidra Weldon | ECON | [address] | | | | | [place] | | | | | [address] | | + + + + + Care Team Providers + +------+ + | Care Cell Cleaner Name | Role | Phone | [...] Shun | | | | | ANNALISA [facility] | [facility] | | | | | Rd [place], [place] | [place], [place] | | | | | [address] | [address] | | | | | [phone] | | | +--------+ + + + [...] [place] | | | | | | [address] | | | | | | [phone] | | | | | | | | +--------+ + + + + documented as of this encounter Visit Diagnoses Not on filedocumented in this encounter"
--- OUTSIDE RECORDS SUMMARY | ~2019-02-17 | XMS | Encounter Summary ---
Demographics + + + | Address | [address] | | | [place] [address] | + + + | Home Phone [...] | | | | | [place] [address] | | + + + + + | Thania Mallory | ECON | [address] | | | | | [place] [address] | | + + + + + | Deidra Weldon | ECON | [address] | | | | | [place] | | | | | [address] | | + + + + + [...] | | | | | Hospital | [facility] | | | | | | [address] | [place] | | | | | | [address] | [place], [place] | | | | | | [place] | [address] | | | | | | [place] | Phone: | | | | | | [address] | [phone] | | | | | | Phone: | | | | | | | [phone] | | | | | | | Fax: | | | | | | | [phone] | | +--------+--------+ + + + + Encounter Details +--------+---------+ + + + | Date | Type | Department | Care Team | Description | +--------+---------+ + + + | 08/17/ | Office | Specialty Clinics | Sudhakar Joy | Anemia of chronic | | 2016 | Visit | at [facility] [address] | DMD [address] | kidney failure, | | | | [place] Mailcode: | [address] | stage 5 (HCC) | | | | [facility] | [place], [place] | (Primary Dx); HSP | | | | [place], [place] | [address] | (Jada[place]manueln | | | | [address] | [phone] | purpura) nephritis | | | | [phone] | | | +--------+---------+ + + + [...] [address] Mail code [facility] [place], [place] [address] documented in this encounter Plan of Treatment +--------+ + + + + | Date | Type | Specialty | Care Team | Description | +--------+ + + + + | 05/04/ | Hospital | Adult Acute Care | El Starr MD | | | 2022 | Encounter | | [address] | | | | | | [place], [place] | | | | | | [address] | | | | | | [phone] | | | | | | | [...]
--- OUTSIDE RECORDS SUMMARY | ~2019-02-17 | XMS | Encounter Summary ---
Demographics + + + | Address | [address] | | | [place] [address] | + + + | Home Phone [...] | Author | [facility] | | | and Josephana | + + + | Organization | [facility] | | [...] Providers + +------+ + | Care Clinical Fellow Name | Role | Phone | [...] | | | | | | MA | | | | | | | [...] + + | 02/24/ | Hospital | [facility] | Blake Chavarria | ESRD (end stage | | 2013 | Encounter | MED CTR OR INTRA OP | MD Antonieta, FACS [address] | renal disease) ([facility]) | | | | [address] | [facility] | (Primary Dx) | | | | [place] | [place] [address] | | | | | [address] | [phone] | | | | | [phone] | | | +--------+ + + + [...] might be different f rom the original. [facility] POST-OP INSTRUCTIONS: Arterio-Venous Fistula [...] may interact with prescription medicines or other taho-tjr-epwuvfs (OTC) drugs. The FDA recommends reading OTC medication labels careful ly to clearly understand the list of active ingredients, directions, and any precautions to help avoid taking too muchacetaminophen. If you have questions, ask your pharmacist or [facility] care provider. Managing Nausea Some [...] or skin changes (rash, itching, or hives). 9605-4630 [employer]. [address] [place] [address], [place] [address]. All righ ts reserved. This information is [...] [place] | | | | | | [place] [address] | | | | | | [phone] | | | | | | | [...] mL/min/1.73m2 | [facility] | | | [facility]INCENTIAN | (<18). | | MEDICAL | | [...] + | [facility] | [address] | [place], [place] | [phone] | | [facility] | | [address] | | | - LABORATORY | | | | + + + + + | [facility] | [address] | [place], [place] | | | [facility] | | [address] | | | - LABORATORY | | [...]
--- OUTSIDE RECORDS SUMMARY | ~2019-02-17 | XMS | Encounter Summary ---
Demographics + + + | Address | [address] | | | [place] [address] | + + + | Home Phone [...] Author | [facility] | | | and Josephana | + + + | Organization | [facility] | [...] Providers + +------+ + | Care Mail Processor Name | Role | Phone [...] NEPHROLOGY [address] | MD [address] [place] | | | | | [address] | [address] [place] | | | | | [place], [place] | [place] [address] | | | | | [address] | [phone] | | | | | [phone] | | | +--------+ + + + [...] [place] | | | | | | [place] [address] | | | | | | [phone] | | | | | | | | +--------+---------+ + + + documented as of this encounter Visit Diagnoses Not on filedocumented in this encounter"
--- OUTSIDE RECORDS SUMMARY | ~2019-02-17 | XMS | Encounter Summary ---
Demographics + + + | Address | [address] | | | [place] [address] | + + + | Home Phone [...] | | | | | [place] [address] | | + + + + + | Thania Mallory | ECON | [address] | | | | | [place] [address] | | + + + + + | Deidra Weldon | ECON | [address] | | | | | [place] | | | | | [address] | | + + + + + Care Team Providers + +------+ + | Care Ship Mate Name | Role | Phone | + [...] SW | | | | ANNALISA Hoffmann [facility] | [facility] [address] [facility] [address] | clinic visit - | | | | Rd [place], [place] | [place], [place] | psychosocial | | | | [address] | [address] | readiness update) | | | | [phone] | | | +--------+ + + + [...] Denise | | | | | | [place], [place] | | | | | | [address] | | | | | | [phone] | | | | | | | | +--------+ + + + + documented as of this encounter Visit Diagnoses Not on filedocumented in this encounter"
--- OUTSIDE RECORDS SUMMARY | ~2019-02-17 | XMS | Encounter Summary ---
Demographics + + + | Address | [address] | | | [place] [address] | + + + | Home Phone [...] | [facility] | | | and Josephana | + + + | Organization | [facility] | [...] Team Providers + +------+ + | Care .Net Developer Name | Role | Phone | [...] | | | | [address]) End | [place], [place] | [place], [place] | | | | | stage renal | [address] | [address] Phone: | | | | | disease | Phone: | [phone] | | | | | ([facility]) | [phone] | Fax: | | | | | Infection | Fax: | [phone] | | | | | and | [phone] | | | | | | inflammatory [...] | | [address] | [place], [address] | (Primary Dx); | | | | [place], [place] | [place], [place] | Anemia in ESRD | | | | [address] | [address] | (end-stage renal | | | | [phone] | | disease) ([facility] [...] There fore she has had construction of angoon radio cephalic fistula in her left arm [...] Chavarria's help with her permanent AVF. C: [place] Fina Joy MD, [facility], [facility] [...] | | | | | [place] [address] | | | | | | [phone] | | | | | | | [...]
--- OUTSIDE RECORDS SUMMARY | ~2019-02-17 | XMS | Encounter Summary ---
Demographics + + + | Address | [address] | | | [place] [address] [...] | | | | | [place] [address] | | + + + + + | Thania Mallory | ECON | [address] | | | | | [place] [address] | | + + + + + | Deidra Weldon | ECON | [address] | | | | | [place] | | | | | [address] | | + + + + + Care Team Providers + +------+ + | Care Chemistry Lab Instructor Name | Role | Phone | [...] | | | | | ANNALISA Hoffmann [facility] | [facility] [address] | | | | | [place], [place] | [place], [place] | | | | | [address] | [address] | | | | | [phone] | [phone] | | | | | | | [...] Denise | | | | | | [place], [place] | | | | | | [address] | | | | | | [phone] | | | | | | | | +--------+ + + + + documented as of this encounter Visit Diagnoses Not on filedocumented in this encounter"
--- OUTSIDE RECORDS SUMMARY | ~2019-02-17 | XMS | Encounter Summary ---
Demographics + + + | Address | [address] | | | [place] [address] | + + + | Home Phone [...] | | | | | [place] [address] | | + + + + + | Thania Mallory | ECON | [address] | | | | | [place] [address] | | + + + + + | Deidra Weldon | ECON | [address] | | | | | [place] | | | | | [address] | | + + + + + [...] | Update | | | | [address] [facility] | [facility] | | | | | Rd [place], [place] | [place], [place] | | | | | [address] | [address] | | | | | [phone] | | | +--------+ + + + [...] [place] | | | | | | [address] | | | | | | [phone] | | | | | | | | +--------+ + + + + documented as of this encounter Visit Diagnoses Not on filedocumented in this encounter"
--- OUTSIDE RECORDS SUMMARY | ~2019-02-17 | XMS | Encounter Summary ---
Demographics + + + | Address | [address] | | | [place] [address] | + + + | Home Phone [...] | | | | | [place] [address] | | + + + + + | Thania Mallory | ECON | [address] | | | | | [place] [address] | | + + + + + | Deidra Weldon | ECON | [address] | | | | | [place] | | | | | [address] | | + + + + + Care Team Providers + +------+ + | Care Communications Specialist Name | Role | Phone | [...] Requested (Drug | | | | [facility] | [facility] | screens) | | | | Rd [place], [place] | [facility] [place] | | | | | [address] | [address] | | | | | [phone] | | | +--------+ + + + [...] Denise | | | | | | [place] | | | | | | [address] | | | | | | [phone] | | | | | | | | +--------+ + + + + documented as of this encounter Visit Diagnoses Not on filedocumented in this encounter"
--- OUTSIDE RECORDS SUMMARY | ~2019-02-17 | XMS | Encounter Summary ---
Demographics + + + | Address | [address] | | | [place] [address] | + + + | Home Phone [...] + | Author | [facility] | | | and Josephana | + + + | Organization | [facility] | | [...] Providers + +------+ + | Care Geospatial Information Scientist Name | Role | Phone | [...] NEPHROLOGY [address] | M, DO [address] | | | | | [address] | [place], [address] | | | | | [place], [place] | [place], [place] | | | | | [address] | [address] | | | | | [phone] | | | +--------+ + + + [...] Dialysis Clinic, Sudhakar Joy MD at [facility], Doyle Diaz MD (fx: [phone]) on 08/31/15.Electronically signed by Marilyn Palumbo at [...] with an AVF venous stenosis, and had EMS DRIVER with an Alysia Castillo last week. Apparently [...] uated for a possible renal allograft at [facility].honestly, given her recent suboptimal compliance with fluid gains, hyperphosphatemia, and missed treatments I think anitha quarles would be at high risk for graft loss from noncompliance? Will attempt to get in touch wit h Dr. Joy, Pediatric Nephrology. 4. Will recheck her in one week. I appreciate Dr. Diaz's help with her recent fistulogram . CC: [place] Fina Joy M.D., Pediatric Nephrology, [facility] Doyle Diaz M.D., IR, [facility] documented in thi s encounter [...] [address] | | | | | | [place] [address] | | | | | | [phone] | | | | | | | | +--------+---------+ + + + documented as of this encounter Visit Diagnoses + + | Diagnosis | + + | ESRD (end stage renal disease) (HCC) - Primary End stage renal disease | + + documented in this encounter"
--- OUTSIDE RECORDS SUMMARY | ~2019-02-17 | XMS | Encounter Summary ---
Demographics + + + | Address | [address] | | | [place] [address] | + + + | Home Phone [...] | Author | [facility] | | | and Josephana | + + + | Organization | [facility] [...] Providers + +------+ + | Care Configuration Specialist Name | Role | Phone | [...] | | | DEPARTMENT [address] [place] | [place] [address] | | | | | [place], [place] | [phone] | | | | | [address] | | | | | | [phone] | | | +--------+ + + + [...] [place] | | | | | | [place] [address] | | | | | | [phone] | | | | | | | | +--------+---------+ + + + documented as of this encounter Visit Diagnoses Not on filedocumented in this encounter"
--- OUTSIDE RECORDS SUMMARY | ~2019-02-17 | XMS | Encounter Summary ---
Demographics + + + | Address | [address] | | | [place] [address] | + + + | Home Phone [...] Author | [facility] | | | and Josephana | + + + | Organization | [facility] | [...] Providers + +------+ + | Care Biomedical Engineer Name | Role | Phone | [...] | | 2019 - | Encounter | [facility] | [address] | unspecified | | | | CARE FLOOR [address] | [place], [place] | organism, | | 12/14/ | | [address] | [address] | unspecified whether | | 2019 | | [place], [place] | [phone] | acute organ | | | | [address] | | dysfunction present | | | | [phone] | Lee Harris MD | ([facility]) (Primary Dx); | | | | | [address] | Pneumonia of right | | | | | [place] [address] | lower lobe due to | | | | | [phone] | infectious organism | | | | | | ([facility]); Hypoxia; | | | | | Jw Neri, DO [address] | Hypervolemia, | | | | | [address] | unspecified | | | | | [place] [address] | hypervolemia type; | | | | | [phone] | ESRD on dialysis | | | | | | ([facility]); Hyperkalemia; | | | | | | Acute on chronic | | | | | | respiratory failure | | | | | | with hypoxia and | | | | | | hypercapnia ([facility]); | | | | | | Acute respiratory | | | | | | failure with hypoxia | | | | | | ([facility]); Anemia in | | | | | | ESRD (end-stage | | | | | | renal disease) | | | | | | ([facility]); At high risk | | | | | | for electrolyte | | | | | | imbalance; Awaiting | | | | | | organ transplant | | | | | | status; 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 | | | | | | failure ([facility]); | | | | | | Chronic right-sided | | | | | | heart failure ([facility]); | | | | | | 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 [facility]: Hospitalist Physician [...] to Gram-positive bacteria 12/12/2018 Clotted dialysis access ([facility]) 2014 Congestive heart failure ([facility]) ESRD (end stage renal disease) ([facility]) HSP (Henoch-Schonlein purpura) nephritis ([facility]) 1987 Hypertension Pericardial effusion without cardiac tamponade 11/07/2018 Past Surgical History: Procedure Laterality Date ABDOMEN SURGERY AV FISTULA REPAIR 02/24/2014 LEFT Radical Cephalic Fistula Creation; Laterality: Left; Surgeon: Blake Chavarria MD ; Location: [facility] MAIN OR AV FISTULA REPAIR Left 03/07/2014 Procedure: AV FISTULA - GRAFT REPAIR/REVISION; Surgeon: Rik Simon MD; Location: [facility] OR; Service: Vascular; Laterality: Left; biopsy [...] - SUPERFICIALIZATION; Surgeon: Emanuel Simon MD; Location: [facility] MAIN OR; Service: Vascular; Laterality: Left; OTHER SURGICAL HISTORY Left 04/08/2014 AV FISTULA PLACEMENT - Procedure: AV FISTULA; Surgeon: Rik Simon MD; Location: [facility] OR; Service: Vascular; Laterality: Left; [...] hours. No results for input(s): PHART, PO2ART, YFO5VIR, C4ULIPGO, BEART in the last 168 hours. No results for input(s): APTT, INR, PTT in the last 168 hours. No results for input(s): TSH in the last 168 hours. Invalid input(s): T3FREE, FREET4 No results for input(s): TROPONINT in the last 168 hours. Invalid input(s): CKTOTAL, TROPONINI, CKMBINDEX Disposition: home No discharge procedures on file. Follow up: Jonathan Alonso MD [address] [facility] [address] Schedule an appointment as soon as possible for a visit hospital follow up Jorje Stewart, [address] [facility] [address] [facility] [address] Schedule an appointment as soon as possible [...] be sent through Care Everywhere.Leti Whitt (Adult) (Kiswahili)documented in this encounter Medications at Time [...] Yanes MD - 12/14/2018 10:16 AM PDT [facility]: Infectious Diseases Progress Note Hospital [...] Procedure Component Value Units Date/Time Culture, Blood [[id number]] Collected: 12/12/18 1943 Order Status: Canceled Lab Status: No result Specimen: Peripheral Blood Culture, Body Fluid Sterile [[id number]] Order Status: No result Lab Status: No result Specimen: Body Fluid from Pleural Fluid, Right Culture, Blood [[id number]] Collected: 12/12/18 0502 Order Status: Completed Lab Status: Preliminary result Updated: 12/13/18 1324 Specimen: Peripheral Blood Special Requests RWRIST Special Requests Testing performed at [facility];[address] [place] [address] RESULT NO GROWTH AT THIS TIME RESULT Testing performed at [facility], [address] [place] [address] Comment: Testing performed at [facility], [address] [place] [address] Influenza A and B RNA, NAAT [[id number]] Collected: 12/11/18 1556 Order Status: Completed Lab Status: Final result Updated: 12/11/18 1619 Influenza A NEGATIVE Influenza B NEGATIVE Comment: Testing performed by Molecular Methodology Testing performed at [facility];[address] [place] [address] Flu Swab Collection [[id number]] Collected: 12/11/18 1546 Order Status: Completed Lab Status: Final result Updated: 12/11/18 1549 Specimen: Tissue from Nasopharynx Collection SPECIMEN RECEIVED IN LAB Comment: Testing performed at [facility];[address] [place] [address] Culture, Blood [[id number]] Collected: 12/11/18 0615 Order Status: Completed Lab Status: Preliminary result Updated: 12/12/18 1134 Specimen: Peripheral Blood Special Requests RAC Special Requests Testing performed at [facility];[address] [place] [address] RESULT NO GROWTH AT THIS TIME RESULT Testing performed at [facility], [address] [place] [address] Comment: Testing performed at [facility], [address] [place] [address] Culture, Blood [[id number]] (Abnormal) Collected: 12/10/18 2343 Order Status: Completed Lab Status: Final result Updated: 12/13/18 1009 Specimen: Blood from Line Gram Stain Result -- GRAM POSITIVE COCCI IN CLUSTERS SEEN IN AEROBIC BOTTLE SEEN IN ANAEROBIC BOTTLE Gram Stain Result -- SMEAR RESULTS CALLED TO AND READ BACK BY: Brigitte CARTER @ 4305 12/11/18 CDS RESULT STAPHYLOCOCCUS SPECIES, COAGULASE NEGATIVE RESULT GROWTH IN TWO OF TWO BOTTLES RESULT -- TIME TO DETECTION: 0.69 DAYS RESULT POSSIBLE CONTAMINANT, CLINICAL CORRELATION REQUIRED. RESULT Testing performed at [facility], [address] [place] [address] Comment: Testing performed at [facility], [address] [place] [address] Microbiology Results (72 hrs) Procedure Component Value Units Date/Time Culture, Blood [[id number]] Collected: 12/12/18 0502 Order Status: Completed Lab Status: Preliminary result Updated: 12/13/18 1324 Specimen: Peripheral Blood Special Requests RWRIST Special Requests Testing performed at [facility];[address] [place] [address] RESULT NO GROWTH AT THIS TIME RESULT Testing performed at [facility], [address] [place] [address] Comment: Testing performed at [facility], [address] [place] [address] Influenza A and B RNA, NAAT [[id number]] Collected: 12/11/18 1556 Order Status: Completed Lab Status: Final result Updated: 12/11/18 1619 Influenza A NEGATIVE Influenza B NEGATIVE Comment: Testing performed by Molecular Methodology Testing performed at [facility];[address] [place] [address] Flu Swab Collection [[id number]] Collected: 12/11/18 1546 Order Status: Completed Lab Status: Final result Updated: 12/11/18 1549 Specimen: Tissue from Nasopharynx Collection SPECIMEN RECEIVED IN LAB Comment: Testing performed at [facility];[address] [place] [address];[place] [address] IMAGING: No new images for review today. [...] was completed later after rounds. Dictation software, Barcheyacht, was used which may contain error for [...] Santos, DO - 12/04 2:42 PM PDT [facility]: Hospitalist Progress Note Pt: Dara Weldon [...] PASP is 73 mmHg - Baseline weight [id number]. In acute exacerbation - HD per nephrology [...] note might be different from the [facility]: Infectious Diseases Progress Note Hospital [...] Consult Continuous Infusions: heparin 400 Units/hr (12/12/18 1745) PRN Meds:.acetaminophen, albumin, albuterol-ipratropium, nitroglycerin, ondansetron, oxyCOD [...] Procedure Component Value Units Date/Time Culture, Blood [[id number]] Collected: 12/12/18 194 Order Status: Canceled Lab Status: No result Specimen: Peripheral Blood Culture, Body Fluid Sterile [[id number]] Order Status: No result Lab Status: No result Specimen: Body Fluid from Pleural Fluid, Right Culture, Blood [[id number]] Collected: 12/12/18 0502 Order Status: Sent Lab Status: In process Updated: 12/12/18 1005 Specimen: Peripheral Blood Influenza A and B RNA, NAAT [[id number]] Collected: 12/11/18 1556 Order Status: Completed Lab Status: Final result Updated: 12/11/18 1619 Influenza A NEGATIVE Influenza B NEGATIVE Comment: Testing performed by Molecular Methodology Testing performed at [facility];[address] [place] [address] Flu Swab Collection [[id number]] Collected: 12/11/18 1546 Order Status: Completed Lab Status: Final result Updated: 12/11/18 1549 Specimen: Tissue from Nasopharynx Collection SPECIMEN RECEIVED IN LAB Comment: Testing performed at [facility];[address] [place] [address] Culture, Blood [[id number]] Collected: 12/11/18 0615 Order Status: Completed Lab Status: Preliminary result Updated: 12/12/18 1134 Specimen: Peripheral Blood Special Requests RAC Special Requests Testing performed at [facility];[address] [place] [address] RESULT NO GROWTH AT THIS TIME RESULT Testing performed at [facility], [address] [place] [address] Comment: Testing performed at [facility], [address] [place] [address] Culture, Blood [[id number]] (Abnormal) Collected: 12/10/18 2343 Order Status: Completed Lab Status: Final result Updated: 12/13/18 1009 Specimen: Blood from Line Gram Stain Result -- GRAM POSITIVE COCCI IN CLUSTERS SEEN IN AEROBIC BOTTLE SEEN IN ANAEROBIC BOTTLE Gram Stain Result -- SMEAR RESULTS CALLED TO AND READ BACK BY: Brigitte CARTER 6RDerick @ 4688 12/11/18 CDS RESULT STAPHYLOCOCCUS SPECIES, COAGULASE NEGATIVE RESULT GROWTH IN TWO OF TWO BOTTLES RESULT -- TIME TO DETECTION: 0.69 DAYS RESULT POSSIBLE CONTAMINANT, CLINICAL CORRELATION REQUIRED. RESULT Testing performed at [facility], [address] [place] [address] Comment: Testing performed at [address] [address] Microbiology Results (72 hrs) Procedure Component Value Units Date/Time Culture, Blood [[id number]] Collected: 12/12/18 0502 Order Status: Sent Lab Status: In process Updated: 12/12/18 1005 Specimen: Peripheral Blood Influenza A and B RNA, NAAT [[id number]] Collected: 12/11/18 1556 Order Status: Completed Lab Status: Final result Updated: 12/11/18 1619 Influenza A NEGATIVE Influenza B NEGATIVE Comment: Testing performed by Molecular Methodology Testing performed at [facility];[address] [place] [address] Flu Swab Collection [[id number]] Collected: 12/11/18 1546 Order Status: Completed Lab Status: Final result Updated: 12/11/18 1549 Specimen: Tissue from Nasopharynx Collection SPECIMEN RECEIVED IN LAB Comment: Testing performed at [facility];[address] [place] [address] Culture, Blood [[id number]] Collected: 12/11/18 0615 Order Status: Completed Lab Status: Preliminary result Updated: 12/12/18 1134 Specimen: Peripheral Blood Special Requests RAC Special Requests Testing performed at [facility];[address] [place] [address] RESULT NO GROWTH AT THIS TIME RESULT Testing performed at [facility], [address] [place] [address] Comment: Testing performed at [facility], [address] [place] [address] Culture, Blood [[id number]] (Abnormal) Collected: 12/10/18 2343 Order Status: Completed Lab Status: Final result Updated: 12/13/18 1009 Specimen: Blood from Line Gram Stain Result -- GRAM POSITIVE COCCI IN CLUSTERS SEEN IN AEROBIC BOTTLE SEEN IN ANAEROBIC BOTTLE Gram Stain Result -- SMEAR RESULTS CALLED TO AND READ BACK BY: Brigitte CARTER @ 5550 12/11/18 CDS RESULT STAPHYLOCOCCUS SPECIES, COAGULASE NEGATIVE RESULT GROWTH IN TWO OF TWO BOTTLES RESULT -- TIME TO DETECTION: 0.69 DAYS RESULT POSSIBLE CONTAMINANT, CLINICAL CORRELATION REQUIRED. RESULT Testing performed at [facility], [address] [place] [address] Comment: Testing performed at [facility], [address] [place] [address] IMAGING: No new images for review today. [...] was completed later after rounds. Dictation software, Barcheyacht, was used which may contain error for [...] heparin 400 Units/hr (12/12/18 0827) Vida Whittaker, [facility] - 12/12/2018 1:37 PM PDTClinical Pharmacy Note: [...] e might be different from the original. [place] [...] Ma, MD 8:29 12/12/2018 rost, Taylor Linda, [facility] - 1 7:46 PM PDT Clinical Pharmacy [...] [address] | | | | | | [place] [address] | | | | | | [phone] | | | | | | | [...] R?MRN: | | | | | | [id number] | | | [id number] | | | riteri | | | [...] | | | St. | | | [place] | | | y | | | [...] | | | St. | | | [place] | | | y | | | [...] | | | St. | | | [place] | | | y | | | [...] | | | St | | | [place] | | | y | | | [...] St | | | | | | [place] | | | y | | | [...] | | | St. | | | [place] | | | y | | | [...] | | | St. | | | [place] | | | y H. | | [...] | | | St. | | | [place] | | | y H. | | [...] | | | St. | | | [place] | | | y H. | | [...] | | | St. | | | [place] | | | y H. | | [...] | | | St. | | | [place] | | | y H. | | [...] | | | pulmon | | | pbalo | | | Acute | | | [...] | | | St. | | | [place] | | | y H. | | [...] | | | St. | | | [place] | | | y H. | | [...] | | | MD | | | Manager Community | | | al | | | [...] | | | [phone] | | | [id number] | | | 2b | | | [...] + | Billie Gupta MD 12/14/2018 9:54 [facility] | | | [facility] Hemo-Dialysis Procedure note Pt is seen [...] QB 450 AP | | | -200 Map Editor 170 Constitutional: pt appears without distress. on [...] | | | | | | at [facility], [address] | | | | | | [facility], | | | | | | [place] [address] | | | | | |Testing performed at [facility], [address] [place] [address] | | | | | | | | | | + + +---- + + + + + | Specimen | + + | Blood | + + + + + + + | Performing | Address | City/State/Zipcode | Phone Number | | Organization | | | | + + + + + | [facility] | [address] | [place] [address] | [phone] | + + + + + Basic [...] 7 (L)Comment: GFR <60: | >60 | [facility] | | | GFR | [...] | | | | | | [facility], | | | | | | [place] [address] | | | | + + + + + + + + | Specimen | + + | Blood | + + + + + + + | Performing | Address | City/State/Zipcode | Phone Number | | Organization | | | | + + + + + | [facility] | [address] | [place] [address] | [phone] | + + + + + XR [...] | | | | | | [facility], | | | | | | [place] [address] | | | | + + + + + + + + | Specimen | + + | Blood | + + + + + + + | Performing | Address | City/State/Zipcode | Phone Number | | Organization | | | | + + + + + | [facility] | [address] | [place] [address] | [phone] | + + + + + [place] [...] [facility] | | | | performed at [facility], [address] | | LABORATORY | | | | [address] | | | | | | [place] [address] | | | | + + + + + + + + | Specimen | + + | Blood | + + + + + + + | Performing | Address | City/State/Zipcode | Phone Number | | Organization | | | | + + + + + | [facility] | [address] | [place] [address] | [phone] | + + + + + Culture, [...] Special | Testing performed at | | [facility] | | | Requests | C;[address] | | LABORATORY | | | | [place] [address] | | | | + + + + + + | RESULT | NO GROWTH 6 DAYS | | [facility] | | | | | | LABORATORY | | + + + + + + | RESULT | Testing performed at | | [facility] | | | | TCL, [address] [facility] | | LABORATORY | | | | [place] | | | | | | [id number]: Testing | | | | | | performed at [facility], [address] | | | | | | [place] | | | | | | [address] | | | | + + + + + + + + | Specimen | + + | Blood - Peripheral | | blood specimen | | (specimen) | + + + + + + + | Performing | Address | City/State/Zipcode | Phone Number | | Organization | | | | + + + + + | [facility] | [address] | [place] [address] | [phone] | + + + + + CBC [...] [facility] | | | | performed at [facility], [address] | | LABORATORY | | | | [address], | | | | | | [place] [address] | | | | + + + + + + + + | Specimen | + + | Blood | + + + + + + + | Performing | Address | City/State/Zipcode | Phone Number | | Organization | | | | + + + + + | [facility] | [address] | [place] [address] | [phone] | + + + + + Basic [...] 7 (L)Comment: GFR <60: | >60 | [facility] | | | GFR | [...] | | | | | | [facility], | | | | | | [place] [address] | | | | + + + + + + + + | Specimen | + + | Blood | + + + + + + + | Performing | Address | City/State/Zipcode | Phone Number | | Organization | | | | + + + + + | [facility] | [address] | [place] [address] | [phone] | + + + + + Basic [...] | | | | [address] [facility];[place], [place] | | | | | | [address] | | | | + + + + + + + + | Specimen | + + | Blood | + + + + + + + | Performing | Address | City/State/Zipcode | Phone Number | | Organization | | | | + + + + + | [facility] | [address] [facility] | [place] [address] | [phone] | + + + + + Influenza [...] [place];[address] | | | | | | [facility];[place], [place] | | | | | | [address] | | | | + + + + + + + + | Specimen | + + | | + + + + + + + | Performing | Address | City/State/Zipcode | Phone Number | | Organization | | | | + + + + + | [facility] | [address] | [place] [address] | [phone] | + + + + + FLU SWAB COLLECTION (12/11/2018 3:46 PM PDT) + + + + + + | Component | Value | Ref Range | Performed | Pathologist | | | | | At | Signature | + + + + + + | Collection | SPECIMEN RECEIVED IN | | [facility] | | | | LABComment: Testing | | LABORATORY | | | | performed at [facility];[address] | | | | | | [address];[place] | | | | | | [address] | | | | + + + + + + + + | Specimen | + + | Tissue - Entire | | nasopharynx (body | | structure) | + + + + + + + | Performing | Address | City/State/Zipcode | Phone Number | | Organization | | | | + + + + + | [facility] | [address] | [place] [address] | [phone] | + + + + + POC [facility];[address] | | LABORATORY | | | | [address];[place], [place] | | | | | | [address] | | | | + + + + + + + + | Specimen | + + | | + + + + + + + | Performing | Address | City/State/Zipcode | Phone Number | | Organization | | | | + + + + + | [facility] | [address] | [place] [address] | [phone] | + + + + + ECG [...] | | | | | ONLY, -COMPUTER (410), | | | | | | map editor Daniela Luciano | | | | [...] [facility] | | | | performed at [facility];[address] | | LABORATORY | | | | [address];[place] | | | | | | [address] | | | | + + + + + + + + | Specimen | + + | Blood | + + + + + + + | Performing | Address | City/State/Zipcode | Phone Number | | Organization | | | | + + + + + | [facility] | [address] | [place] [address] | [phone] | + + + + + Basic Metabolic Panel (12/11/2018 6:15 AM PDT) + + + + + + | Component | Value | Ref Range | Performed | Pathologist | | | | | At | Signature | + + + + + + | Na | 136 | 135 - 145 | [facility] | | | | | mmol/L | LABORATORY | | + + + + + + | K | 6.8 ()Comment: RESULT | 3.5 - 4.9 | [facility] | | | | READ BACK BY:ABRIL HUERTA | mmol/L | LABORATORY | | | | [place] [id number] 2 0728 BY | | | | | | [...] CITY;[address] | | | | | | [facility];[place], [place] | | | | | | [address] | | | | + + + + + + + + | Specimen | + + | Blood | + + + + + + + | Performing | Address | City/State/Zipcode | Phone Number | | Organization | | | | + + + + + | [facility] | [address] | [place] [address] | [phone] | + + + + + Culture, [...] Special | Testing performed at | | [facility] | | | Requests | [facility];[address] | | LABORATORY | | | | [place] [address] | | | | + + + + + + | RESULT | NO GROWTH 6 DAYS | | [facility] | | | | | | LABORATORY | | + + + + + + | RESULT | Testing performed at | | [facility] | | | | TCL, [address] [facility] | | LABORATORY | | | | [place] | | | | | | [id number]: Testing | | | | | | performed at [facility], [address] | | | | | | [address] [place] | | | | | | [address] | | | | + + + + + + + + | Specimen | + + | Blood - Peripheral | | blood specimen | | (specimen) | + + + + + + + | Performing | Address | City/State/Zipcode | Phone Number | | Organization | | | | + + + + + | [facility] | [address] | [place] [address] | [phone] | + + + + + CT [...] LABORATORY | | | | performed at [facility];[address];[place] | | | | | | [address] | | | | + + + + + + + + | Specimen | + + | | + + + + + + + | Performing | Address | City/State/Zipcode | Phone Number | | Organization | | | | + + + + + | [facility] | [address] | [place] [address] | [phone] | + + + + + Lactic Acid (12/11/2018 1:04 AM PDT) + + + + + + | Component | Value | Ref Range | Performed | Pathologist | | | | | At | Signature | + + + + + + | Lactate, | 1.2Comment: Testing | 0.4 - 2.0 | [facility] | | | Serum | performed at [facility];[address] | mmol/L | LABORATORY | | | | [address];[place] | | | | | | [address] | | | | + + + + + + + + | Specimen | + + | Blood | + + + + + + + | Performing | Address | City/State/Zipcode | Phone Number | | Organization | | | | + + + + + | [facility] | [address] | [place] [address] | [phone] | + + + + + Lactic Acid (12/10/2018 11:44 PM PDT) + + + + + + | Component | Value | Ref Range | Performed | Pathologist | | | | | At | Signature | + + + + + + | Lactate, | 0.8Comment: Testing | 0.4 - 2.0 | [facility] | | | Serum | performed at [facility];[address] | mmol/L | LABORATORY | | | | [address];[place] | | | | | | [address] | | | | + + + + + + + + | Specimen | + + | Blood | + + + + + + + | Performing | Address | City/State/Zipcode | Phone Number | | Organization | | | | + + + + + | [facility] | [address] | [place] [address] | [phone] | + + + + + Culture, [...] | | | BY:Brigitte CARTER 6RDerick @ 3825 | | | | | | 12/11/18 [...] RESULT | Testing performed at | | [facility] | | | | [facility], [address] | | LABORATORY | | | | [place], [place] | | | | | | [id number]: Testing | | | | | | performed at [facility], [address] | | | | | [address], | | | | | | [place] [address] | | | | + + + + + + + + | Specimen | + + | Blood - Swab of line | | insertion site | | (specimen) | + + + + + + + | Performing | Address | City/State/Zipcode | Phone Number | | Organization | | | | + + + + + | [facility] | [address] | [place] [address] | [phone] | + + + + + XR [...] at | | | | | | [facility];[address] [place] [address] | | | | | | [facility];[place] [address] | | | | + + + + + + + + | Specimen | + + | Blood | + + + + + + + | Performing | Address | City/State/Zipcode | Phone Number | | Organization | | | | + + + + + | [facility] | [address] | [place] [address] | [phone] | + + + + + Protime INR (12/10/2018 11:02 PM PDT) + + + + + + | Component | Value | Ref Range | Performed | Pathologist | | | | | At | Signature | + + + + + + | INR | 1.3Comment: REFERENCE | | [facility] | | | | RANGE:0.9 [...] | | | | | | [address];[place] | | | | | | [address] | | | | + + + + + + + + | Specimen | + + | Blood | + + + + + + + | Performing | Address | City/State/Zipcode | Phone Number | | Organization | | | | + + + + + | [facility] | [address] | [place] [address] | [phone] | + + + + + CBC [...] | | | | | | at [facility];[address];[place] [address] | | | | | |NORMAL [facility]T [facility] | | | | | |Testing performed at [facility];[address];[place] [address] | | | | | | | | | | + + + + + + + + | Specimen | + + | Blood | + + + + + + + | Performing | Address | City/State/Zipcode | Phone Number | | Organization | | | | + + + + + | [facility] | [address] | [place] [address] | [phone] | + + + + + Phosphorus (12/10/2018 11:02 PM PDT) + + + + + + | Component | Value | Ref Range | Performed | Pathologist | | | | | At | Signature | + + + + + + | Phosphorus | 8.9 (H)Comment: Testing | 2.3 - 4.8 mg/dL | [facility] | | | | performed at [facility];[address] | | LABORATORY | | | | [address];[place], [place] | | | | | | [address] | | | | + + + + + + + + | Specimen | + + | Blood | + + + + + + + | Performing | Address | City/State/Zipcode | Phone Number | | Organization | | | | + + + + + | [facility] | [address] | [place] [address] | [phone] | + + + + + Magnesium (12/10/2018 11:02 PM PDT) + + + + + + | Component | Value | Ref Range | Performed | Pathologist | | | | | At | Signature | + + + + + + | Magnesium | 2.2Comment: Testing | 1.7 - 2.4 mg/dL | [facility] | | | | performed at [facility];[address] | | LABORATORY | | | | [address];[place], [place] | | | | | | [address] | | | | + + + + + + + + | Specimen | + + | Blood | + + + + + + + | Performing | Address | City/State/Zipcode | Phone Number | | Organization | | | | + + + + + | [facility] | [address] | [place] [address] | [phone] | + + + + + Comprehensive [...] 22 | 10 - 65 U/L | [facility] | | | | | | LABORATORY | | + + + + + + | Estimated | 3 (L)Comment: GFR <60: | >60 | [facility] | | | GFR | [...] performed at [facility] | | | | | | [facility];[place], [place] | | | | | | [address] | | | | + + + + + + + + | Specimen | + + | Blood | + + + + + + + | Performing | Address | City/State/Zipcode | Phone Number | | Organization | | | | + + + + + | [facility] | [address] | [place] [address] | [phone] | + + + + + ECG [...] | | | | | ONLY, -COMPUTER (424), | | | | | | map editor Daniela Luciano | | | | [...]
--- OUTSIDE RECORDS SUMMARY | ~2019-02-17 | XMS | Encounter Summary ---
Demographics + + + | Address | [address] | | | [place] [address] | + + + | Home Phone [...] | | | | | [place] [address] | | + + + + + | Thania Mallory | ECON | [address] | | | | | [place] [address] | | + + + + + | Deidra Weldon | ECON | [address] | | | | | [place] | | | | | [address] | | + + + + + Care Team Providers + +------+ + | Care Warp Yarn Sorter Name | Role | Phone | [...] | | | | | ANNALISA Hoffmann [facility] | [facility] | | | | | [address] [place], [place] | [place], [place] | | | | | [address] | [address] | | | | | [phone] | | | +--------+ + + + [...] Denise | | | | | | [place] | | | | | | [address] | | | | | | [phone] | | | | | | | | +--------+ + + + + documented as of this encounter Visit Diagnoses Not on filedocumented in this encounter"
--- OUTSIDE RECORDS SUMMARY | ~2019-02-17 | XMS | Encounter Summary ---
Demographics + + + | Address | [address] | | | [place] [address] | + + + | Home Phone [...] | | | | | [place] [address] | | + + + + + | Thania Mallory | ECON | [address] | | | | | [place] [address] | | + + + + + | Deidra Weldon | ECON | [address] | | | | | [place] | | | | | [address] | | + + + + + Care Team Providers + +------+ + | Care Clinching Machine Operator Name | Role | Phone [...] Elias Elizondo | | | | | ([facility]) | [address] | [address] [place], | | | | | Allergic | [place], [place] | [place] | | | | | purpura | [address] | [address] | | | | | ([facility]) | Phone: | Phone: | | | | | | [phone] | [phone] | | | | | | Fax: | Fax: | | | | | | [phone] | [phone] | +--------+--------+ + + + + Encounter Details +--------+ + + + + | Date | Type | Department | Care Team | Description | +--------+ + + + + | 12/20/ | Hospital | Radiology at [facility] | | | | 2012 | Encounter | [address] | | | | | | Mailcode: [id number] | | | | | | [place] | | | | | | [place], [place] | | | | | | [address] | | | | | | [phone] | | | +--------+ + + + [...] Denise | | | | | | [place], [place] | | | | | | [address] | | | | | | [phone] | | | | | | | [...] | | + +---------+ + + | [facility] DEPARTMENT OF | | | | | RADIOLOGY | | | | + +---------+ + + documented in this encounter Visit Diagnoses + + | Diagnosis | + + | 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
--- OUTSIDE RECORDS SUMMARY | ~2019-02-17 | XMS | Encounter Summary ---
Demographics + + + | Address | [address] | | | [place] [address] | + + + | Home Phone [...] | | | | | [place] [address] | | + + + + + | Thania Mallory | ECON | [address] | | | | | [place] [address] | | + + + + + | Deidra Weldon | ECON | [address] | | | | | [place] | | | | | [address] | | + + + + + Care Team Providers + +------+ + | Care Poultry Hatchery Man Name | Role | Phone | [...] Hoffmann [facility] | [facility] [address] | follow-up on | | | | Rd [place] | [place] | [place] | | | | [address] | [address] | care plan) | | | | [phone] | | | +--------+ + + + [...] Denise | | | | | | [place] | | | | | | [address] | | | | | | [phone] | | | | | | | | +--------+ + + + + documented as of this encounter Visit Diagnoses Not on filedocumented in this encounter"
--- OUTSIDE RECORDS SUMMARY | ~2019-02-17 | XMS | Encounter Summary ---
Demographics + + + | Address | [address] | | | [place] [address] | + + + | Home Phone [...] + | Author | [facility] | | | and Josephana | + + + | Organization | [facility] | [...] Team Providers + +------+ + | Care Pumper Head Name | Role | Phone | [...] | | 2019 - | Encounter | [facility] | MD Brooks TORRES | heart failure (HCC) | | | | CARE FLOOR [address] | [place] [address] | (Primary Dx); Acute | | 11/09/ | | [address] | [phone] | hypoxemic | | 2019 | | [place], [place] | | respiratory failure | | | | [address] | Darell Kowalski MD | (HCC); 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 [facility] Service: Medicine DISCHARGE SUMMARY Primary Care Physician: [...] be evaluated at local emergency room at [facility]. In the ER patient was [...] transferred with the patient's paper documentation from [facility] ER). Initial labs: WBC 6.5, hemoglobin [...] suggesting of edema. Taken from Dr. Brooks [facility] (11/06/2018) HOSPITAL COURSE Patient was admitted [...] GRAFT REPAIR/REVISION; Surgeon: Rik Simon MD; Location: [facility]; Service: Vascular; Laterality: Left; biopsy of [...] - SUPERFICIALIZATION; Surgeon: Emanuel Simon MD; Location: [facility]; Service: Vascular; Laterality: Left; OTHER SURGICAL HISTORY Left 04/08/2014 AV FISTULA PLACEMENT - Procedure: AV FISTULA; Surgeon: Rik Simon MD; Location: [facility]; Service: Vascular; Laterality: Left; cephalic OTHER SURGICAL HISTORY Left 03/07/2014 DECLOT GRAFT - Procedure: GRAFT - DECLOT; Surgeon: Rik Simon MD; Location: [facility] ; Service: Vascular; Laterality: Left; peritoneal [...] Value Units Date/Time Culture, Body Fluid Sterile [[id number]] Collected: 11/07/18 1515 Order Status: Completed Lab Status: Preliminary result Updated: 11/09/18 1412 Specimen: Body Fluid from Pleural Fluid, Right Special Requests RIGHT SIDE Special Requests Testing performed at [facility];[address] [place] [address] Gram Stain Result NO CELLS OR ORGANISMS SEEN RESULT NO GROWTH 2 DAYS RESULT Testing performed at [facility], [address] [place] [address] Comment: Testing performed at [facility], [address] [place] [address] Culture, Body Fluid Sterile [[id number]] Order Status: Canceled Lab Status: No result [...] DANIEL Follow Up: Jonathan Alonso MD [address] [facility] [place] [address] In 1 week René Anguiano MD [address] [facility] [address] [place] [address] In 1 [...] her sister. DME equipment order sent to [facility]. She refused oxygen delivery [...] UF. Hypervolemia has improved with HD/UF/thoracentesis. Acute MD has been ruled out. Recommendations: Plan for [...] for continuity of chart review/care. Dictation software, Sometrics, was used which may contain error for [...] this note might be different from the [facility] Inpatient Progress Note Pt: Dara Louise AGE/SEX: 23 y.o. ROOM: [facility]/8125- : 1995 PCP: Jonathan Alonso [...] hypervolemic and has recurrent hyperkalemia/metabolic acidosis. Acute MD has been ruled out. Recommendations: Plan for [...] for continuity of chart review/care. Dictation software, Sometrics, was used which may contain error for [...] this note might be different from the [facility] Inpatient Progress Note Pt: Dara Louise AGE/SEX: 23 y.o. ROOM: [address] [place] [address] : 1995 PCP: Jonathan Alonso MD PATIENT [...] and dyspnea. The patient was seen at [facility] ER and then transferred to our [...] | | | | | [place] [address] | | | | | | [phone] | | | | | | | [...] + | Billie Gupta MD 11/09/2018 9:34 [facility] | | | Center Hemo-Dialysis [...] | | . 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 Panel Saw Operator 240 | | | Constitutional: pt [...] ANDREY | | | | performed at [facility], [address] | | LABORATORY | | | | [place], | | | | | | [place] [address] | | | | + + + + + + + + | Specimen | + + | Blood | + + + + + + + | Performing | Address | City/State/Zipcode | Phone Number | | Organization | | | | + + + + + | [facility] | [address] | [place] [address] | [phone] | + + + + + Comprehensive [...] | | | | | | [facility], | | | | | | [place] [address] | | | | + + + + + + + + | Specimen | + + | Blood | + + + + + + + | Performing | Address | City/State/Zipcode | Phone Number | | Organization | | | | + + + + + | [facility] | [address] | [place] [address] | [phone] | + + + + + CBC [...] LABORATORY | | | | performed at [facility], [address] | | | | | | [address], | | | | | | [place] [address] | | | | | | | | | | + + + + + + + + | Specimen | + + | Blood | + + + + + + + | Performing | Address | City/State/Zipcode | Phone Number | | Organization | | | | + + + + + | [facility] | [address] | [place] [address] | [phone] | + + + + + Protime INR (11/09/2018 4:14 AM PDT) + + + + + + | Component | Value | Ref Range | Performed | Pathologist | | | | | At | Signature | + + + + + + | INR | 1.3Comment: REFERENCE | | [facility] | | | | RANGE:0.9 [...] | | | | | performed at [facility];[address];[place] | | | | | | [address] | | | | + + + + + + + + | Specimen | + + | Blood | + + + + + + + | Performing | Address | City/State/Zipcode | Phone Number | | Organization | | | | + + + + + | [facility] | [address] | [place] [address] | [phone] | + + + + + Comprehensive [...] 9 (L)Comment: GFR <60: | >60 | [facility] | | | GFR | [...] Center, | | | | | | [place] [address] | | | | + + + + + + + + | Specimen | + + | Blood | + + + + + + + | Performing | Address | City/State/Zipcode | Phone Number | | Organization | | | | + + + + + | [facility] | [address] | [place] [address] | [phone] | + + + + + CBC [...] [address], | | | | | | [place] [address] | | | | | |Testing performed at [facility], [address], [place] [address] | | | | | | | | | | + + +---- + + + + + | Specimen | + + | Blood | + + + + + + + | Performing | Address | City/State/Zipcode | Phone Number | | Organization | | | | + + + + + | [facility] | [address] | [place] [address] | [phone] | + + + + + Protime [...] | | | | | performed at [facility] | | | | | | [address] [facility];[place], [place] | | | | | | [address] | | | | + + + + + + + + | Specimen | + + | Blood | + + + + + + + | Performing | Address | City/State/Zipcode | Phone Number | | Organization | | | | + + + + + | [facility] | [address] | [place] [address] | [phone] | + + + + + XR [...] is | | | punctured with an 5-Yi thoracentesis catheter. Fluid is aspirated | | [...] the pleural space is punctured with an 5-Yi | | thoracentesis catheter. Fluid is aspirated [...] Special | Testing performed at | | [facility] | | | Requests | [facility];[address] | | LABORATORY | | | | [address] [address] | | | | + + + + + + | Gram Stain | NO CELLS OR ORGANISMS | | [facility] | | | Result | SEEN | | LABORATORY | | + + + + + + | RESULT | NO GROWTH 4 DAYS | | [facility] | | | | | | LABORATORY | | + + + + + + | RESULT | Testing performed at | | [facility] | | | | TCL, [address] [facility] | | LABORATORY | | | | [place] | | | | | | [address]Uwdkrxt: Testing | | | | | | performed at [facility], [address] | | | | | | [place] | | | | | | [address] | | | | + + + + + + + + | Specimen | + + | Body Fluid - Pleural | | fluid specimen | | (specimen) | + + + + + + + | Performing | Address | City/State/Zipcode | Phone Number | | Organization | | | | + + + + + | [facility] | [address] | [place] [address] | [phone] | + + + + + Protein, Body Fluid (11/07/2018 3:15 PM PDT) + + + + + + | Component | Value | Ref Range | Performed | Pathologist | | | | | At | Signature | + + + + + + | Protein, BF | 3.4Comment: This is not | g/dL | [facility] | | | | a shopping investigator validated | | LABORATORY | | | | sample type for this | | | | | | method. No | | | | | | referenceranges have | | | | | | been established.Testing | | | | | | performed at [facility], [address] | | | | | [address], | | | | | | [place] [address] | | | | + + + + + + | SOURCE | PLEURAL FLUIDComment: | | [facility] | | | | Testing performed at | | LABORATORY | | | | [facility];[address] [facility] | | | | | | [place] [address] | | | | + + + + + + + + | Specimen | + + | Body Fluid | + + + + + + + | Performing | Address | City/State/Zipcode | Phone Number | | Organization | | | | + + + + + | [facility] | [address] | [place] [address] | [phone] | + + + + + Lactate [...] [facility] | | | FLUID | a shopping investigator validated | | LABORATORY | | | | sample type for this | | | | | | method. No | | | | | | referenceranges have | | | | | | been established.Testing | | | | | | performed at [facility], [address] | | | | | | [address] [facility], | | | | | | [place] [address] | | | | + + + + + + + + | Specimen | + + | Body Fluid | + + + + + + + | Performing | Address | City/State/Zipcode | Phone Number | | Organization | | | | + + + + + | [facility] | [address] [facility] | [place] [address] | [phone] | + + + + + Glucose, Body Fluid (11/07/2018 3:15 PM PDT) + + + + + + | Component | Value | Ref Range | Performed | Pathologist | | | | | At | Signature | + + + + + + | Glucose | 96Comment: This is not a | mg/dL | [facility] | | | Fluid | shopping investigator validated | | LABORATORY | | | | sample type for this | | | | | | method. No | | | | | | referenceranges have | | | | | | been established.Testing | | | | | | performed at [facility], [address] | | | | | | [address], | | | | | | [place] [address] | | | | + + + + + + | SOURCE | PLEURAL FLUIDComment: | | [facility] | | | | Testing performed at | | LABORATORY | | | | [facility];[address] | | | | | | [address];[place] [address] | | | | + + + + + + + + | Specimen | + + | Body Fluid | + + + + + + + | Performing | Address | City/State/Zipcode | Phone Number | | Organization | | | | + + + + + | [facility] | [address] | [place] [address] | [phone] | + + + + + Cell [...] + + + | BF RBC | <36923 | /mm3 | [facility] | | | [...] | | | Counted | performed at [facility] | | LABORATORY | | | | [address];[place], [place] | | | | | | [address] | | | | + + + + + + + + | Specimen | + + | Body Fluid | + + + + + + + | Performing | Address | City/State/Zipcode | Phone Number | | Organization | | | | + + + + + | [facility] | [address] | [place] [address] | [phone] | + + + + + Amylase, Body Fluid (11/07/2018 3:15 PM PDT) + + + + + + | Component | Value | Ref Range | Performed | Pathologist | | | | | At | Signature | + + + + + + | AMYLASE | 46Comment: This is not a | U/L | [facility] | | | FLUID | shopping investigator validated | | LABORATORY | | | | sample type for this | | | | | | method. No | | | | | | referenceranges have | | | | | | been established.Testing | | | | | | performed at [facility], [address] | | | | | | [address] [facility], | | | | | | [place] [address] | | | | + + + + + + + + | Specimen | + + | Body Fluid | + + + + + + + | Performing | Address | City/State/Zipcode | Phone Number | | Organization | | | | + + + + + | [facility] | [address] | [place] [address] | [phone] | + + + + + Albumin, Body Fluid (11/07/2018 3:15 PM PDT) + + + + + + | Component | Value | Ref Range | Performed | Pathologist | | | | | At | Signature | + + + + + + | Albumin, | 2.0Comment: This is not | g/dL | [facility] | | | Fluid | a shopping investigator validated | | LABORATORY | | | | sample type for this | | | | | | method. No | | | | | | referenceranges have | | | | | | been established.Testing | | | | | | performed at [facility], [address] | | | | | | [address] [facility], | | | | | | [place] [address] | | | | + + + + + + + + | Specimen | + + | Body Fluid | + + + + + + + | Performing | Address | City/State/Zipcode | Phone Number | | Organization | | | | + + + + + | [facility] | [address] | [place] [address] | [phone] | + + + + + Medical [...] preparation was | | | performed by [employer], [address] [facility] | | | [place] [address] (Assistant Men'S Soccer Coach: Matt Claudio D.O.; CLIA#: | | | [id number]).Professional interpretation was performed by [employer] | | | [employer], | | | [place] [address] (Assistant Men'S Soccer Coach: Daniel Larson M.D.; CLIA#: | | | [id number]).6 Diagnostician: Enrrique Nichols | | | CT(ASCP)CytotechnologistDiagnostician: [...] | | |Technical preparation was performed by [employer], [address] [place] [address] (Assistant Men'S Soccer Coach: Matt Claudio D.O.; CLIA#: [id number]). | | |Professional interpretation was performed by [employer], [address] [address] (Assistant Men'S Soccer Coach: Daniel Larson M.D.; CLIA#: [id number]).6 | | | | | |Diagnostician: Enrrique BROOKS(ASCP) | | |Post Tensioning Ironworker | | |Diagnostician: Daniel Larson MD | [...] at | | | | | | [facility];[address] [facility] | | | | | | Blvd;[place] [address] | | | | + + + + + + + + | Specimen | + + | Blood | + + + + + + + | Performing | Address | City/State/Zipcode | Phone Number | | Organization | | | | + + + + + | [facility] | [address] | [place] [address] | [phone] | + + + + + ECG [...] | INR | 1.3Comment: REFERENCE | | [facility] | | | | RANGE:0.9 [...] | | | | | performed at [facility];[address] | | | | | | [address] [facility];[place], [place] | | | | | | [address] | | | | + + + + + + + + | Specimen | + + | Blood | + + + + + + + | Performing | Address | City/State/Zipcode | Phone Number | | Organization | | | | + + + + + | [facility] | [address] [facility] | [place] [address] | [phone] | + + + + + Platelet Count (11/07/2018 4:03 AM PDT) + + + + + + | Component | Value | Ref Range | Performed | Pathologist | | | | | At | Signature | + + + + + + | Platelet | 185Comment: Testing | 150 - 400 K/uL | [facility] | | | Count | performed at [facility], [address] | | LABORATORY | | | | [address], | | | | | | [place] [address] | | | | + + + + + + + + | Specimen | + + | Blood | + + + + + + + | Performing | Address | City/State/Zipcode | Phone Number | | Organization | | | | + + + + + | [facility] | [address] | [place] [address] | [phone] | + + + + + PTT (11/07/2018 4:03 AM PDT) + + + + + + | Component | Value | Ref Range | Performed | Pathologist | | | | | At | Signature | + + + + + + | PTT | 27Comment: Testing | 23 - 32 seconds | [facility] | | | | performed at [facility];[address] | | LABORATORY | | | | [address];[place] | | | | | | [address] | | | | + + + + + + + + | Specimen | + + | Blood | + + + + + + + | Performing | Address | City/State/Zipcode | Phone Number | | Organization | | | | + + + + + | [facility] | [address] | [place] [address] | [phone] | + + + + + Lactate Dehydrogenase (11/07/2018 4:03 AM PDT) + + + + + + | Component | Value | Ref Range | Performed | Pathologist | | | | | At | Signature | + + + + + + | LDH TOTAL | 202Comment: Testing | 120 - 246 U/L | [facility] | | | | performed at [facility];[address] | | LABORATORY | | | | [address];[place] | | | | | | [address] | | | | + + + + + + + + | Specimen | + + | Blood | + + + + + + + | Performing | Address | City/State/Zipcode | Phone Number | | Organization | | | | + + + + + | [facility] | [address] | [place] [address] | [phone] | + + + + + Magnesium (11/07/2018 4:03 AM PDT) + + + + + + | Component | Value | Ref Range | Performed | Pathologist | | | | | At | Signature | + + + + + + | Magnesium | 2.3Comment: Testing | 1.7 - 2.4 mg/dL | [facility] | | | | performed at [facility];[address] | | LABORATORY | | | | [address];[place], [place] | | | | | | [address] | | | | + + + + + + + + | Specimen | + + | Blood | + + + + + + + | Performing | Address | City/State/Zipcode | Phone Number | | Organization | | | | + + + + + | [facility] | [address] | [place] [address] | [phone] | + + + + + Comprehensive [...] 7 (L)Comment: GFR <60: | >60 | [facility] | | | GFR | [...] Center, | | | | | | [place] [address] | | | | + + + + + + + + | Specimen | + + | Blood | + + + + + + + | Performing | Address | City/State/Zipcode | Phone Number | | Organization | | | | + + + + + | [facility] | [address] | [place] [address] | [phone] | + + + + + Troponin I (11/06/2018 9:54 PM PDT) + + + + + + | Component | Value | Ref Range | Performed | Pathologist | | | | | At | Signature | + + + + + + | Troponin I | 0.045 (H)Comment: 0.04 | 0.00 - 0.04 | [facility] | | | | ng/mL [...] at | | | | | | [facility];[address] | | | | [address];[place] [address] | | | | + + + + + + + + | Specimen | + + | Blood | + + + + + + + | Performing | Address | City/State/Zipcode | Phone Number | | Organization | | | | + + + + + | [facility] | [address] | [place] [address] | [phone] | + + + + + Protime [...] | | | | | performed at [facility] | | | | | | [address];[place], [place] | | | | | | [address] | | | | + + + + + + + + | Specimen | + + | Blood | + + + + + + + | Performing | Address | City/State/Zipcode | Phone Number | | Organization | | | | + + + + + | [facility] | [address] | [place] [address] | [phone] | + + + + + ECHO [...] (H)Comment: 0.04 | 0.00 - 0.04 | [facility] | | | | ng/mL [...] at | | | | | | [facility];[address] [place] [address] | | | | | | [facility];[place] [address] | | | | + + + + + + + + | Specimen | + + | Blood | + + + + + + + | Performing | Address | City/State/Zipcode | Phone Number | | Organization | | | | + + + + + | [facility] | [address] | [place] [address] | [phone] | + + + + + Magnesium [...] | | | | | [place] [address] | | | | + + + + + + + + | Specimen | + + | Blood | + + + + + + + | Performing | Address | City/State/Zipcode | Phone Number | | Organization | | | | + + + + + | [facility] | [address] | [place] [address] | [phone] | + + + + + documented [...]
--- OUTSIDE RECORDS SUMMARY | ~2019-02-17 | XMS | Encounter Summary ---
Demographics + + + | Address | [address] | | | [place] [address] | + + + | Home Phone [...] | Author | [facility] | | | and Jsoephana | + + + | Organization | [facility] | [...] Team Providers + +------+ + | Care Percussion Welding Machine Operator Name | Role | Phone | + +------+ + PCP | Unavailable | + +------+ + Encounter Details +--------+ + + + + | Date | Type | Department | Care Team | Description | +--------+ + + + + | 08/12/ | Hospital | [facility] | Conversion | ESRD (end stage | | 2016 | Encounter | CENTER CV INTRA OP | Transaction, | renal disease) | | | | [address] | Provider Unknown | ([facility]); ESRD on | | | | [place], [place] | | hemodialysis ([facility]) | | | | [address] | (Fax) | | | | | [phone] | Doyle Diaz MD | | +--------+ [...] 08/13/151114 Date of Service: 08/13/151114 Status: Signed Scenario Writer: Taylor Acuna RN (Registered Nurse) Pt discharged [...] [address] | | | | | | [place] [address] | | | | | | [phone] | | | | | | | [...] ANGIOPLASTY AV FISTULA VENOUS | | | MEDICAL GRADE SHOEMAKER: Doyle Diaz MD CONSENT: The risks, benefits [...] IR ANGIOPLASTY | | AV FISTULA VENOUS MEDICAL GRADE SHOEMAKER: Doyle Diaz MD CONSENT: The risks, benefits [...] ANGIOPLASTY AV FISTULA VENOUS | | | MEDICAL GRADE SHOEMAKER: Doyle Diaz MD CONSENT: The risks, benefits [...] IR ANGIOPLASTY | | AV FISTULA VENOUS MEDICAL GRADE SHOEMAKER: Doyle Diaz MD CONSENT: The risks, benefits [...] [place];[address] | | | | | | [facility];[place], [place] | | | | | | [address] | | | | + + + [...]
--- OUTSIDE RECORDS SUMMARY | ~2019-02-17 | XMS | Encounter Summary ---
Demographics + + + | Address | [address] | | | [place] [address] | + + + | Home Phone [...] Author | [facility] | | | and [place] | + + + | Organization | [facility] [...] Providers + +------+ + | Care Patient Navigator Name | Role | Phone | + [...] | NEPHROLOGY [address] | | | | | [address] | [address] [place] | | | | | [place], [place] | [place] [address] | | | | | [address] | [phone] | | | | | [phone] | | | +--------+ + + + [...] | | | | | [place] [address] | | | | | | [phone] | | | | | | | | +--------+---------+ + + + documented as of this encounter Visit Diagnoses Not on filedocumented in this encounter"
--- OUTSIDE RECORDS SUMMARY | ~2019-02-17 | XMS | Encounter Summary ---
Demographics + + + | Address | [address] | | | [place] [address] | + + + | Home Phone [...] Author | [facility] | | | and [place] | + + + | Organization | [facility] [...] Team Providers + +------+ + | Care Orthotic Fitter Name | Role | Phone | [...] | Encounter | JOY | MD Emanuel [address] [place] | | | | | [address] | [facility] | | | | | [address] | [place], [place] | | | | | [place], [place] | [address] | | | | | [address] | [phone] | | | | | [phone] | | | +--------+ + + + [...] [address] | | | | | | [place] [address] | | | | | | [phone] | | | | | | | | +--------+---------+ + + + documented as of this encounter Visit Diagnoses Not on filedocumented in this encounter"
--- OUTSIDE RECORDS SUMMARY | ~2019-02-17 | XMS | Encounter Summary ---
Demographics + + + | Address | [address] | | | [place] [address] | + + + | Home Phone [...] | Author | [facility] | | | and Josephana | + + + | Organization | [facility] [...] Providers + +------+ + | Care Net Mvc Developer Name | Role | Phone | + +------+ + | Tien Nicholson MD | PCP | | + +------+ + Encounter Details +--------+ + + + + | Date | Type | Department | Care Team | Description | +--------+ + + + + | 05/26/ | Hospital | [facility] | Mayco Rizvi MD | Chest pain, | | 2019 - | Encounter | [facility] | [address] [place] | unspecified type; | | | | CARE FLOOR [address] | [address] [place], [place] | Hypoalbuminemia; | | 06/01/ | | [address] | [address] | Anemia in ESRD | | 2019 | | [place], [place] | | (end-stage renal | | | | [address] | | disease) ([facility]); | | | | [phone] | | End-stage renal | | | | | | disease on | | | | | | hemodialysis ([facility]); | | | | [...] | | | | | failure) ([facility]) | +--------+ + + [...] Date of Service: 06/01/18 0959 Status: Addendum Electric Car Operator: Darell Rossi MD (Physician) Related Notes: Original Note by Darell Rossi MD (Physician) filed at 06/04/18 5342 [facility]: Hospitalist Physician Discharge Summary Pt: Dara Louise AGE/SEX: 23 y.o. female ROOM: [address] [place] [address] PCP: TIEN NICHOLSON : 1995 Admit date: [...] trapping or emphysema. Si gned by: MD Leiws John Sign Date/Time: 05/26/2018 4:55 PM X-ray [...] 17. The mitral valve is normal. 18. Syab-aa-fhdmu ate eccentric mitral regurgitation is present. 19. [...] anemia of chronic disease who went to [facility] with increasing shortness of breath found to have right pleural effusion who was transfer red to [facility] underwent right-sided diagnostic and therapeutic thoracocentesis [...] hyperkalemia with that. I discussed with the communication spec as well regarding not being on [place]/ARB. [...] Component Value Units Date/Time Culture, Body Fluid [[id number]] Collected: 05/26/18 1412 Specimen: Body Fluid from Pleural Fluid Updated: 05/30/18 0733 Specimen Description PLEURAL FLUID GRAM STAIN WBC'S SEEN GRAM STAIN NO ORGANISMS SEEN GRAM STAIN STAIN PERFORMED ON CYTOSPIN CULTURE NO GROWTH 4 DAYS Culture, Body Fluid [[id number]] Collected: 05/26/18 1513 Specimen: Other from Ascites Fluid Updated: 05/30/18 0732 Specimen Description ASCITES FLUID GRAM STAIN STAIN PERFORMED ON CYTOSPIN GRAM STAIN WBC'S SEEN GRAM STAIN NO EPITHELIAL CELLS SEEN GRAM STAIN NO ORGANISMS SEEN CULTURE NO GROWTH 4 DAYS Gram stain [[id number]] Collected: 05/29/18 1256 Specimen: Sputum from Thoracic Fluid Updated: 05/29/18 2339 Specimen Description THORACIC FLUID CULTURE 1+ WBC'S SEEN NO ORGANISMS SEEN Lactate dehydrogenase, body fluid [[id number]] Collected: 05/29/18 1256 Specimen: Body Fluid from Pleural, Right Updated: 05/29/18 1619 FLUID LDH 151 U/L Cholesterol, body fluid [[id number]] Collected: 05/29/18 1256 Specimen: Body Fluid from [...] medications if needed. Follow-Up: Tien Nicholson MD [address] [place] [address] In 1 week Carolina Mahmood DO [address] [place] [facility] [address] In 1 week Daniela Ibarra MD [address] [facility] [address] In 1 week Discharge took more than 35 minutes, to include final examination, discussion of admission, and preparation of prescriptions, instructions for ongoing care, follow up and dictation of summary. Signed: DARELL ROSSI MD 06/01/2018 9:59 AM Dictation software, MyTrainer, used which may contain error for similar [...] | | | | renal disease) ([facility]) | protocol | | [...] Date of Service: 06/01/18 150 Status: Signed Electric Car Operator: Tino Paiz CRT (Certified Respiratory Therapist) [facility] Oxygen Evaluation (Evaluation is valid for 48 [...] (none) Author Type: Registered Nurse Filed: 06/01/18 6087 Date of Service: 06/01/18 1500 Status: Signed Electric Car Operator: Autumn Moy RN (Registered Nurse) Pt was [...] Date of Service: 06/01/18 1248 Status: Signed Electric Car Operator: Leanna Ariza RN (Registered Nurse) Pt will d/c home today --already established on HD/[place] MWF --will have O2 eval today No other needs Angela Antonio Carrasco MD - 06/01/2018 10:52 AM PDTFormatting of this note might be different from the orig inal. Progress Notes by Antonio Benjamin MD at 06/01/18 1052 Author: Antonio Benjamin MD Service: Nephrology Author Type: Physician Filed: 06/05/18 1253 Date of Service: 06/01/18 1052 Status: Signed Electric Car Operator: Antonio Benjamin MD (Physician) [facility]: NEPHROLOGY Dialysis/ Progress Note Dara Lundberg Shiraz 23 y.o. [id number] female [facility] Day: LOS: 6 days Patient [...] radiologist report and is used for image [employer] only Us Abdomen Limited Result Date: 05/28/2018 [...] 17. The mitral valve is normal. 18. Phhl-my-mqvjujoy eccentric mitral regurgitation i s present. 19. [...] mitral valve is normal. Mitral Kait ve: Rxts-wy-bduuyhnt eccentric mitral regurgitation is present. Tricuspid Valve: [...] maxP.08 mmHg TR Vmax: 2.7 4 m/s [facility] Associate Professor: MOO Authenticated by: Robel Yusuf MD Report [...] 17. The mitral valve is normal. 18. Edge-cj-tiekx ate eccentric mitral regurgitation is present. 19. [...] pleural spac e is punctured with an 8-Maltese thoracentesis catheter. Fluid is aspirated without complicat [...] earlier and charting completed later Dictation software, MyTrainer, used which may contain error for similar [...] 0632 Date of Service: 06/01/1835 Status: Signed Electric Car Operator: Aury Eldridge RN (Registered Nurse) Pts VSS. [...] 05/31/181840 Date of Service: 05/31/181840 Status: Signed Electric Car Operator: Romelia Cooley RN (Registered Nurse) End of shift chart review complete. Romelia Cooley RN koum, René Mckeon MD - 05/31/2018 11:32 AM PDTFormatting of this note might be different from the candice ginal. Progress Notes by René Anguiano MD at 05/31/18 113 Author: René Anguiano MD Service: Nephrology Author Type: Physician Filed: 05/31/18 1654 Date of Service: 05/31/18 113 Status: Addendum Electric Car Operator: René Anguiano MD (Physician) Related Notes: Original Note by KRIHSNA Waters (Nurse Practitioner) filed at 05/05 10/22 [...] put on "an antibiotic" for pneumonia at [facility]. Was throwing up & could [...] the prelim submitted orders, MWF No acute CHIEF COMPLIANCE OFFICER indication ESTEFANY as indicated with HD Protein [...] 0951 Date of Service: 05/31/18941 Status: Signed Electric Car Operator: Darell Rossi MD (Physician) [facility]: Hospitalist Progress Note Pt: Dara Louise AGE/SEX: 23 y.o. female ROOM: [address] [place] [address] : 1995 PCP: TIEN NICHOLSON ADMIT DATE: 05/26/2018 TODAY'S DATE: 05/31/2018 Hospital Day/Hospital Course: LOS: [address] Figueroa 23-year-old female with past medical history of end-stage renal disease on hemodialysis Mon, hypertension, anemia of chronic disease who went to [facility] with increasing shortness of breath found to have right pleural effusion who was transfer red to [facility] underwent right-sided diagnostic and therapeutic thoracocentesis [...] Component Value Units Date/Time Culture, Body Fluid [[id number]] Collected: 05/26/18 1412 Specimen: Body Fluid from Pleural Fluid Updated: 05/30/18 0733 Specimen Description PLEURAL FLUID GRAM STAIN WBC'S SEEN GRAM STAIN NO ORGANISMS SEEN GRAM STAIN STAIN PERFORMED ON CYTOSPIN CULTURE NO GROWTH 4 DAYS Culture, Body Fluid [[id number]] Collected: 05/26/18 1513 Specimen: Other from Ascites Fluid Updated: 05/30/18 0732 Specimen Description ASCITES FLUID GRAM STAIN STAIN PERFORMED ON CYTOSPIN GRAM STAIN WBC'S SEEN GRAM STAIN NO EPITHELIAL CELLS SEEN GRAM STAIN NO ORGANISMS SEEN CULTURE NO GROWTH 4 DAYS Gram stain [[id number]] Collected: 05/29/18 1256 Specimen: Sputum from Thoracic Fluid Updated: 05/29/18 2339 Specimen Description THORACIC FLUID CULTURE 1+ WBC'S SEEN NO ORGANISMS SEEN Lactate dehydrogenase, body fluid [[id number]] Collected: 05/29/18 1256 Specimen: Body Fluid from Pleural, Right Updated: 05/29/18 1619 FLUID LDH 151 U/L Cholesterol, body fluid [[id number]] Collected: 05/29/18 1256 Specimen: Body Fluid from Pleural, Right Updated: 05/29/18 1619 FLUID CHOLESTEROL 56 mg/dL Sputum culture [[id number]] Collected: 05/27/182014 Specimen: Sputum from Sputum Updated: [...] or emphysema. Si gned by: MD Debbie, lE Sign Date/Time: 05/26/2018 4:55 PM X-ray Chest [...] 17. The mitral valve is normal. 18. Dgua-zc-lazuy ate eccentric mitral regurgitation is present. 19. [...] anemia of chronic disease who went to [facility] with increasing shortness of breath due to acute congestive heart failure Acute systolic congestive heart failure with Pleural Effusion: Admitted with acute systolic congestive heart failure with bilateral pleural effusion stat us post thoracentesis 2. Her breathing has improved. She is talking to me appropriately. N ot in any kind of distress. vice president client services to initiate the discharge plan. Possible [...] MD, FACP 05/31/2018 9:42 AM Dictation software, MyTrainer, used which may contain error for similar [...] 05/31/18253 Date of Service: 05/31/18253 Status: Signed Electric Car Operator: Nandini Robertson RN (Registered Nurse) Chart review completed. onver arturo Transaction, Provider Unknown - 05/30/2018 6:37 PM PDT Nurse Progress Note by Kyra Amador RN at 05/30/181836 Author: Kyra Amador RN Service: (none) Author Type: Registered Nurse Filed: 05/30/181842 Date of Service: 05/30/181836 Status: Signed Electric Car Operator: Kyra Amador RN (Registered Nurse) VSS. Pt c/o abd cramping during dialysis which was treated with PRN tramadol. PRN phenergan x1, PRN zofran x1. Tolerated food well. Ambulated tena few times, tolerated well. Kyra Amador 05/30/18 6:42 PM Chart check complete. Laine, Daerll Escalera MD - 05/30/2018 9:09 AM PDT Progress Notes by Darell Rossi MD at 05/30/18908 Author: Darell Rossi MD Service: Hospitalist Author Type: Physician Filed: 05/30/18 1243 Date of Service: 05/30/18 0909 Status: Signed Electric Car Operator: Darell Rossi MD (Physician) [facility]: Hospitalist Progress Note Pt: Dara Toño Louise AGE/SEX: 23 y.o. female ROOM: [facility]- : 1995 PCP: TIEN NICHOLSON ADMIT DATE: 05/26/2018 TODAY'S DATE: 05/30/2018 Hospital Day/Hospital Course: LOS: [address] Figueroa 23-year-old female with past medical history of end-stage renal disease on hemodialysis Mon day Monday, hypertension, anemia of chronic disease who went to [facility] with increasing shortness of breath found to have right pleural effusion who was transfer red to [facility] underwent right-sided diagnostic and therapeutic thoracocentesis [...] Component Value Units Date/Time Culture, Body Fluid [[id number]] Collected: 05/26/18 1412 Specimen: Body Fluid from Pleural Fluid Updated: 05/30/18 6321 Specimen Description PLEURAL FLUID GRAM STAIN WBC'S SEEN GRAM STAIN NO ORGANISMS SEEN GRAM STAIN STAIN PERFORMED ON CYTOSPIN CULTURE NO GROWTH 4 DAYS Culture, Body Fluid [[id number]] Collected: 05/26/18 1513 Specimen: Other from Ascites Fluid Updated: 05/30/18 0732 Specimen Description ASCITES FLUID GRAM STAIN STAIN PERFORMED ON CYTOSPIN GRAM STAIN WBC'S SEEN GRAM STAIN NO EPITHELIAL CELLS SEEN GRAM STAIN NO ORGANISMS SEEN CULTURE NO GROWTH 4 DAYS Gram stain [[id number]] Collected: 05/29/18 1256 Specimen: Sputum from Thoracic Fluid Updated: 05/29/18 2339 Specimen Description THORACIC FLUID CULTURE 1+ WBC'S SEEN NO ORGANISMS SEEN Lactate dehydrogenase, body fluid [[id number]] Collected: 05/29/18 1256 Specimen: Body Fluid from Pleural, Right Updated: 05/29/18 1619 FLUID LDH 151 U/L Cholesterol, body fluid [[id number]] Collected: 05/29/18 1256 Specimen: Body Fluid from Pleural, Right Updated: 05/29/18 1619 FLUID CHOLESTEROL 56 mg/dL Sputum culture [[id number]] Collected: 05/27/182014 Specimen: Sputum from Sputum Updated: [...] 17. The mitral valve is normal. 18. Dlcb-mg-qauro ate eccentric mitral regurgitation is present. 19. [...] anemia of chronic disease who went to [facility] with increasing shortness of breath due [...] MD, FACP 05/30/2018 9:10 AM Dictation software, MyTrainer, used which may contain error for similar [...] 05/30/18417 Date of Service: 05/30/18416 Status: Signed Electric Car Operator: Nandini Robertson RN (Registered Nurse) Pt did well overnight. VSS. Chart review completed. Carolina Cantor, Medical Student - 05/29/2018 7:56 PM PDT Progress Notes by Carolina Mahmood DO at 05/29/181955 Author: Carolina Mahmood DO Service: Cardiology Author Type: Physician Filed: 05/29/182014 Date of Service: 05/29/181955 Status: Signed Electric Car Operator: Carolina Mahmood DO (Physician) [facility]: Cardiology Progress Note Hospital Day: LOS: [...] 05/29/181742 Date of Service: 05/29/181739 Status: Signed Electric Car Operator: Flaco Can RN (Registered Nurse) Pt VSS. [...] Service: Hospitalist Author Type: Physician Filed: 05/29/18 5778 Date of Service: 05/29/181342 Status: Signed Electric Car Operator: Anthony Figueroa MD (Physician) Hospitalist Progress Note Dara Louise 23 y.o. [id number] female [facility] Day: LOS: 3 days Patient Summary: 23-year-old female with past medical history of end-stage renal dis ease on hemodialysis Monday, hypertension, anemia of chronic disease who we nt to [facility] with increasing shortness of breath found to have right pleural e ffusion who was transferred to [facility] underwent right-sided diagnostic and therapeu tic [...] Value Units Date/Time Lactate dehydrogenase, body fluid [[id number]] Collected: 05/29/18 125 Specimen: Body Fluid from Pleural, Right Updated: 05/29/18 1315 Cholesterol, body fluid [[id number]] Collected: 05/29/18 125 Specimen: Body Fluid from Pleural, Right Updated: 05/29/18 1315 Gram stain [[id number]] Collected: 05/29/18 125 Specimen: Sputum from OTHR-w source desc (F6) Updated: 05/29/18 1309 Sputum culture [[id number]] Collected: 05/27/182014 Specimen: Sputum from Sputum Updated: 05/29/18 0947 Specimen Description SPUTUM GRAM STAIN LESS THAN 10 WBCS/LPF GRAM STAIN LESS THAN 10 SEC/LPF GRAM STAIN NO ORGANISMS SEEN CULTURE 1+ NORMAL UPPER RESPIRATORY ALESSANDRO HIV 1/2 Ab reflex [[id number]] Collected: 05/28/18 1236 Specimen: Blood Updated: 05/29/18 0942 HIV1/HIV2 NON REACTIVE Protime-INR [[id number]] Collected: 05/29/1852 Specimen: Blood Updated: 05/29/1840 INR 1.5 APTT [[id number]] Collected: 05/29/1852 Specimen: Blood Updated: 05/29/1840 APTT 29 seconds Culture, Body Fluid [[id number]] Collected: 05/26/18 1513 Specimen: Other from Ascites Fluid Updated: 05/29/18 0920 Specimen Description ASCITES FLUID GRAM STAIN STAIN PERFORMED ON CYTOSPIN GRAM STAIN WBC'S SEEN GRAM STAIN NO EPITHELIAL CELLS SEEN GRAM STAIN NO ORGANISMS SEEN CULTURE NO GROWTH 3 DAYS Culture, Body Fluid [[id number]] Collected: 05/26/18 1412 Specimen: Body Fluid from Pleural Fluid Updated: 05/29/18917 Specimen Description PLEURAL FLUID CULTURE NO GROWTH 3 DAYS Comprehensive metabolic panel [[id number]] (Abnormal) Collected: 05/29/18456 Specimen: Blood Updated: 05/29/18615 [...] mL/min/1.73m2 CBC W/Auto Diff (Reflex to Manual) [[id number]] (Abnormal) Collected: 05/29/18456 Specimen: Blood Updated: 05/29/18612 [...] 0.05 K/uL MORPHOLOGY 2+ hCG, serum, qualitative [[id number]] Collected: 05/28/18922 Specimen: Blood Updated: 05/28/181949 TEST,SERUM NEGATIVE C-reactive protein [[id number]] (Abnormal) Collected: 05/28/18922 Specimen: Blood Updated: 05/28/181940 CRP 5.1 (H) mg/dL Sedimentation rate, automated [[id number]] Collected: 05/28/18922 Specimen: Blood Updated: 05/28/18 1734 ESR 2 mm/Hr Hepatitis panel,acute [[id number]] Collected: 05/28/18 1236 Specimen: Blood Updated: 05/28/18 1650 HAV AB,IGM NON REACTIVE HEP B SURFACE AG NON REACTIVE ANTI HEP B CORE,IGM NON REACTIVE HEPATITIS C NON REACTIVE HEPATITIS INTERP No serologic evidence of HAV, HBV, or HCV infection. Troponin I [[id number]] Collected: 05/28/18922 Specimen: Blood Updated: 05/28/18 143 TROPONIN I 0.034 ng/mL Troponin I [[id number]] Collected: 05/28/18 1359 Specimen: Blood Updated: 05/28/18 143 TROPONIN I 0.037 ng/mL Renal function panel [[id number]] (Abnormal) Collected: 05/28/18 1209 Specimen: Blood from Blood Updated: 05/28/18 1302 SODIUM 141 mmol/L POTASSIUM 4.3 mmol/L CHLORIDE 101 mmol/L CO2 29 mmol/L ANION GAP AGAP 15 mmol/L GLUCOSE 78 mg/dL BUN 43 (H) mg/dL CREATININE 7.97 (H) mg/dL CALCIUM 9.1 mg/dL Albumin 3.6 g/dL PHOSPHORUS 6.3 (H) mg/dL EGFR 6 (L) mL/min/1.73m2 CBC W/Auto Diff (Reflex to Manual) [[id number]] (Abnormal) Collected: 05/28/18922 Specimen: Blood Updated: 05/28/18 [...] 0.05 K/uL MORPHOLOGY 1+ Comprehensive metabolic panel [[id number]] (Abnormal) Collected: 05/28/18922 Specimen: Blood Updated: 05/28/18 [...] (H) U/L EGFR 6 (L) mL/min/1.73m2 TSH [[id number]] Collected: 05/28/18922 Specimen: Blood Updated: 05/28/18 1210 TSH 1.270 uIU/mL Pathologist consult [[id number]] Collected: 05/26/18 1412 Updated: 05/28/18 1113 Pathologist Consult -- Hepatitis panel, chronic [[id number]] (Abnormal) Collected: 05/27/18 1758 Updated: 05/27/18 203 Hep A Total Ab REACTIVE (A) HEP B SURFACE AG NON REACTIVE HEP B CORE AB,TOTAL NON REACTIVE HEP B SURFACE ANTIBODY 3.27 (H) IV HEPATITIS C NON REACTIVE HEPATITIS INTERP Current or past HAV infection. Past HBV infection or vaccination. No ser ologic evidence of HCV infection. CBC w/auto diff (reflex to manual) [[id number]] (Abnormal) Collected: 05/27/18 0425 Specimen: Blood Updated: [...] K/uL MORPHOLOGY 2+ Platelet Estimate DECREASED Phosphorus [[id number]] (Abnormal) Collected: 05/27/18424 Specimen: Blood Updated: 05/27/18628 PHOSPHORUS 8.0 (H) mg/dL Basic Metabolic Panel [[id number]] (Abnormal) Collected: 05/27/18424 Specimen: Blood Updated: 05/27/18628 SODIUM 135 mmol/L POTASSIUM 5.9 (H) mmol/L CHLORIDE 96 (L) mmol/L CO2 25 mmol/L ANION GAP AGAP 20 mmol/L GLUCOSE 74 mg/dL BUN 51 (H) mg/dL CREATININE 9.2 (H) mg/dL BUN/CREAT 6 CALCIUM 9.4 mg/dL EGFR 5 (L) mL/min/1.73m2 Magnesium [[id number]] (Abnormal) Collected: 05/27/18424 Specimen: Blood Updated: 05/27/18628 MAGNESIUM 2.7 (H) mg/dL Brain natriuretic peptide [[id number]] (Abnormal) Collected: 05/27/18424 Specimen: Blood Updated: 05/27/1846 BRAIN NATRIURETIC PEPTIDE 1,153.92 (H) pg/mL Respiratory Filmarray [[id number]] (Abnormal) Collected: 05/26/181805 Specimen: Nasopharynx/Oropharynx Updated: 05/26/182141 [...] performed by Molecular Methodology MRSA by PCR [[id number]] Collected: 05/26/181805 Specimen: Nasopharyngeal from Nares(Nose) Updated: 05/26/182025 SOURCE NARES(NOSE) MRSA PCR NEGATIVE Procalcitonin [[id number]] (Abnormal) Collected: 05/26/181726 Updated: 03/23/19 1839 PROCALCITONIN 0.76 (H) ng/mL Albumin, Body Fluid [[id number]] Collected: 05/26/181411 Specimen: Body Fluid from Lung, Right Lower Lobe Updated: 05/26/18 172 FLUID ALBUMIN 2.3 g/dL Total Protein, Body Fluid [[id number]] Collected: 05/26/181411 Specimen: Body Fluid from Lung, Right Lower Lobe Updated: 05/26/18 172 FLUID TOTAL PROTEIN 4.2 g/dL FLUID TP SOURCE PLEURAL FLUID Cell count, Body Fluid [[id number]] Collected: 05/26/181411 Specimen: Body Fluid from Lung, Right Lower Lobe Updated: 05/26/18 170 FLUID TYPE PLEURAL FLUID COLOR SAMMIE APPEARANCE CLOUDY RBC'S 3,000 /mm3 TOTAL NUCLEATED CELLS 253 /mm3 NEUTROPHILS 22 % LYMPHOCYTES 8 % MONOCYTES/MACROPHAGES 65 % Mesothelial Cells 5 % CELLS COUNTED 100 pH, Body Fluid [[id number]] Collected: 05/26/181411 Specimen: Body Fluid from Lung, [...] 17. The mitral valve is normal. 18. Uuqf-zi-rvwgslih eccentric mitral regurgitation i s present. 19. [...] mitral valve is normal. Mitral Kait ve: Xfgs-iy-lrshojfm eccentric mitral regurgitation is present. Tricuspid Valve: [...] maxP.08 mmHg TR Vmax: 2.7 4 m/s [facility] Associate Professor: MOO Authenticated by: Robel Yusuf MD Report [...] 17. The mitral valve is normal. 18. Rhsc-qe-wqtja ate eccentric mitral regurgitation is present. 19. [...] imbalance Acute systolic CHF (congestive heart failure) ([facility]) Transaminitis ASSESSMENT & PLAN Bilateral [...] Service: Nephrology Author Type: Physician Filed: 05/31/18 9438 Date of Service: 05/29/18725 Status: Addendum Electric Car Operator: René Anguiano MD (Physician) Related Notes: Original Note by KRISHNA Waters (Nurse Practitioner) filed at 05/05 08/22 0206 Hospital Problem List: Active Problems: ESRD on [...] put on "an antibiotic" for pneumonia at [facility]. Was throwing up & could [...] the prelim submitted orders, MWF No acute CHIEF COMPLIANCE OFFICER indication ESTEFANY as indicated with HD Protein [...] 0555 Date of Service: 05/29/18553 Status: Signed Electric Car Operator: Vernell Weston RN (Registered Nurse) End of [...] 05/28/181940 Date of Service: 05/28/181939 Status: Signed Electric Car Operator: Saundra Hartley RN (Registered Nurse) No acute [...] 05/28/181721 Date of Service: 05/28/181720 Status: Signed Electric Car Operator: Cayden Caceres RN (Registered Nurse) UF 2 L with HD today. nthony Figueroa MD - 05/28/2018 12:26 PM PDTFormatting of this note might be different from the or iginal. Progress Notes by Anthony Figueroa MD at 05/28/18 1226 Author: Anthony Figueroa MD Service: Hospitalist Author Type: Physician Filed: 05/28/18 1233 Date of Service: 05/28/18 1226 Status: Signed Electric Car Operator: Anthony Figueroa MD (Physician) Hospitalist Progress Note Dara Louise 23 y.o. [id number] female [facility] Day: LOS: 2 days Patient Summary: 23-year-old female with past medical history of end-stage renal dis ease on hemodialysis Monday, hypertension, anemia of chronic disease who we nt to [facility] with increasing shortness of breath found to have right pleural e ffusion who was transferred to [facility] underwent right-sided diagnostic and therapeu tic [...] Component Value Units Date/Time Culture, Body Fluid [[id number]] Collected: 05/26/18 9429 Specimen: Other from Ascites Fluid Updated: 05/28/18 1225 Specimen Description ASCITES FLUID GRAM STAIN STAIN PERFORMED ON CYTOSPIN GRAM STAIN WBC'S SEEN GRAM STAIN NO EPITHELIAL CELLS SEEN GRAM STAIN NO ORGANISMS SEEN CULTURE NO GROWTH 2 DAYS Culture, Body Fluid [[id number]] Collected: 05/26/18 141 Specimen: Body Fluid from Pleural Fluid Updated: 05/28/18 1223 Specimen Description PLEURAL FLUID CULTURE NO GROWTH 2 DAYS Comprehensive metabolic panel [[id number]] (Abnormal) Collected: 05/28/18922 Specimen: Blood Updated: 05/28/18 [...] (H) U/L EGFR 6 (L) mL/min/1.73m2 TSH [[id number]] Collected: 05/28/18922 Specimen: Blood Updated: 05/28/18 1210 TSH 1.270 uIU/mL Pathologist consult [[id number]] Collected: 05/26/18 141 Updated: 05/28/18 1113 Pathologist Consult -- Troponin I [[id number]] Collected: 05/28/18922 Specimen: Blood Updated: 05/28/18 1055 CBC W/Auto Diff (Reflex to Manual) [[id number]] Collected: 05/28/18922 Specimen: Blood Updated: 05/28/18 0939 Sputum culture [[id number]] Collected: 05/27/182014 Specimen: Sputum from Sputum Updated: 05/28/18902 Specimen Description SPUTUM GRAM STAIN LESS THAN 10 WBCS/LPF GRAM STAIN LESS THAN 10 SEC/LPF GRAM STAIN NO ORGANISMS SEEN CULTURE CULTURE IN PROGRESS Hepatitis panel, chronic [[id number]] (Abnormal) Collected: 05/27/181757 Updated: 05/27/182030 Hep A Total Ab REACTIVE (A) HEP B SURFACE AG NON REACTIVE HEP B CORE AB,TOTAL NON REACTIVE HEP B SURFACE ANTIBODY 3.27 (H) IV HEPATITIS C NON REACTIVE HEPATITIS INTERP Current or past HAV infection. Past HBV infection or vaccination. No ser ologic evidence of HCV infection. CBC w/auto diff (reflex to manual) [[id number]] (Abnormal) Collected: 05/27/18424 Specimen: Blood Updated: 05/27/18 [...] K/uL MORPHOLOGY 2+ Platelet Estimate DECREASED Phosphorus [[id number]] (Abnormal) Collected: 05/27/18424 Specimen: Blood Updated: 05/27/18 0629 PHOSPHORUS 8.0 (H) mg/dL Basic Metabolic Panel [[id number]] (Abnormal) Collected: 05/27/18424 Specimen: Blood Updated: 05/27/1829 SODIUM 135 mmol/L POTASSIUM 5.9 (H) mmol/L CHLORIDE 96 (L) mmol/L CO2 25 mmol/L ANION GAP AGAP 20 mmol/L GLUCOSE 74 mg/dL BUN 51 (H) mg/dL CREATININE 9.2 (H) mg/dL BUN/CREAT 6 CALCIUM 9.4 mg/dL EGFR 5 (L) mL/min/1.73m2 Magnesium [[id number]] (Abnormal) Collected: 05/27/18424 Specimen: Blood Updated: 05/27/18 0629 MAGNESIUM 2.7 (H) mg/dL Brain natriuretic peptide [[id number]] (Abnormal) Collected: 05/27/18424 Specimen: Blood Updated: 05/27/18 0546 BRAIN NATRIURETIC PEPTIDE 1,153.92 (H) pg/mL Respiratory Filmarray [[id number]] (Abnormal) Collected: 05/26/181805 Specimen: Nasopharynx/Oropharynx Updated: 05/26/182141 [...] performed by Molecular Methodology MRSA by PCR [[id number]] Collected: 05/26/18 180 Specimen: Nasopharyngeal from Nares(Nose) Updated: 05/26/182025 SOURCE NARES(NOSE) MRSA PCR NEGATIVE Procalcitonin [[id number]] (Abnormal) Collected: 05/26/18 1727 Updated: 05/26/18 1839 PROCALCITONIN 0.76 (H) ng/mL Albumin, Body Fluid [[id number]] Collected: 05/26/18 1412 Specimen: Body Fluid from Lung, Right Lower Lobe Updated: 05/26/18 1729 FLUID ALBUMIN 2.3 g/dL Total Protein, Body Fluid [[id number]] Collected: 05/26/18 1412 Specimen: Body Fluid from Lung, Right Lower Lobe Updated: 05/26/18 1729 FLUID TOTAL PROTEIN 4.2 g/dL FLUID TP SOURCE PLEURAL FLUID Cell count, Body Fluid [[id number]] Collected: 05/26/18 141 Specimen: Body Fluid from Lung, Right Lower Lobe Updated: 05/26/18 1708 FLUID TYPE PLEURAL FLUID COLOR SAMMIE APPEARANCE CLOUDY RBC'S 3,000 /mm3 TOTAL NUCLEATED CELLS 253 /mm3 NEUTROPHILS 22 % LYMPHOCYTES 8 % MONOCYTES/MACROPHAGES 65 % Mesothelial Cells 5 % CELLS COUNTED 100 pH, Body Fluid [[id number]] Collected: 05/26/18 1412 Specimen: Body Fluid from Lung, Right Lower Lobe Updated: 05/26/18 1508 FLUID PH 7.45 Procalcitonin [[id number]] (Abnormal) Collected: 05/26/18 1214 Updated: 05/26/18 1330 PROCALCITONIN 0.56 (H) ng/mL Cardiac Panel [[id number]] (Abnormal) Collected: 05/26/18 1214 Updated: 05/26/18 1312 [...] ng/mL CK-MB Index 2.7 Brain natriuretic peptide [[id number]] (Abnormal) Collected: 05/26/18 1214 Updated: 05/26/18 1254 [...] radiologist report and is used for image [facility] Echo Cardiac Adult Complete Result Date: 05/27/2018 [...] 17. The mitral valve is normal. 18. Iexw-mx-njrumvrv eccentric mitral regurgitation i s present. 19. [...] mitral valve is normal. Mitral Kait ve: Fhvn-fi-zlspkpyz eccentric mitral regurgitation is present. Tricuspid Valve: [...] maxP.08 mmHg TR Vmax: 2.7 4 m/s [facility] Associate Professor: MOO Authenticated by: Robel Yusuf MD Report [...] 17. The mitral valve is normal. 18. Pesw-in-dvsbi ate eccentric mitral regurgitation is present. 19. [...] 05/28/1808 Date of Service: 05/28/18703 Status: Signed Electric Car Operator: Timothy Butler RN (Registered Nurse) Pt A&Ox4 [...] 05/27/181957 Date of Service: 05/27/181954 Status: Signed Electric Car Operator: Vernell Weston RN (Registered Nurse) Called into [...] 05/27/181924 Date of Service: 05/27/181922 Status: Signed Electric Car Operator: Saundra Hartley RN (Registered Nurse) Pt has [...] Author: DORON Ashby Service: (none) Author Type: Inpatient Auditor Filed: 05/27/181533 Date of Service: 05/27/181529 Status: Signed Electric Car Operator: DORON Ashby (Inpatient Auditor) 05/27/181529 Discharge Planning Evaluation Admitting Diagnosis SOB [...] Patient/Family concerns No Met with Dara Louise ([phone]) and discussed discharge planning. Pt is a 23 y.o., female who resides alone in [place], [place]. Pt states that she has supportive family and frie nds. Pt's mother lives 50 miles away; pt's sister lives 15 minutes away. Pt is independent and does not have a caregiver. Patient's PCP is: TIEN NICHOLSON Patient's insurance: Medicare and Medicaid Coverage concerns: None Medication coverage/concerns: None Community resources utilized / needed: Pt does outpatient dialysis at [facility] in [facility] on Monday, Monday and Monday Assistance [...] Service: Hospitalist Author Type: Physician Filed: 05/27/18 9189 Date of Service: 05/27/18 1325 Status: Signed Electric Car Operator: Anthony Figueroa MD (Physician) Hospitalist Progress Note Dara Lundberg Shiraz 23 y.o. [id number] female [facility] Day: LOS: 1 day Patient Summary: 23-year-old female with past medical history of end-stage renal dis ease on hemodialysis Monday, hypertension, anemia of chronic disease who we nt to [facility] with increasing shortness of breath found to have right pleural e ffusion who was transferred to [facility] underwent right-sided diagnostic and therapeu tic [...] Date/Time CBC w/auto diff (reflex to manual) [[id number]] (Abnormal) Collected: 05/27/18424 Specimen: Blood Updated: 05/27/18710 [...] K/uL MORPHOLOGY 2+ Platelet Estimate DECREASED Phosphorus [[id number]] (Abnormal) Collected: 05/27/18424 Specimen: Blood Updated: 05/27/18628 PHOSPHORUS 8.0 (H) mg/dL Basic Metabolic Panel [[id number]] (Abnormal) Collected: 05/27/18424 Specimen: Blood Updated: 05/27/18628 SODIUM 135 mmol/L POTASSIUM 5.9 (H) mmol/L CHLORIDE 96 (L) mmol/L CO2 25 mmol/L ANION GAP AGAP 20 mmol/L GLUCOSE 74 mg/dL BUN 51 (H) mg/dL CREATININE 9.2 (H) mg/dL BUN/CREAT 6 CALCIUM 9.4 mg/dL EGFR 5 (L) mL/min/1.73m2 Magnesium [[id number]] (Abnormal) Collected: 05/27/18424 Specimen: Blood Updated: 05/27/18 0629 MAGNESIUM 2.7 (H) mg/dL Brain natriuretic peptide [[id number]] (Abnormal) Collected: 05/27/18424 Specimen: Blood Updated: 05/27/18 0546 BRAIN NATRIURETIC PEPTIDE 1,153.92 (H) pg/mL Respiratory Filmarray [[id number]] (Abnormal) Collected: 05/26/181805 Specimen: Nasopharynx/Oropharynx Updated: 05/26/182141 [...] performed by Molecular Methodology MRSA by PCR [[id number]] Collected: 05/26/181805 Specimen: Nasopharyngeal from Nares(Nose) Updated: 05/26/182025 SOURCE NARES(NOSE) MRSA PCR NEGATIVE Procalcitonin [[id number]] (Abnormal) Collected: 05/26/18 1727 Updated: 05/26/18 183 PROCALCITONIN 0.76 (H) ng/mL Culture, Body Fluid [[id number]] Collected: 05/26/18 141 Specimen: Body Fluid from Pleural Fluid Updated: 05/26/18 181 Pathologist consult [[id number]] Collected: 05/26/181411 Updated: 05/26/18 174 Albumin, Body Fluid [[id number]] Collected: 05/26/181411 Specimen: Body Fluid from Lung, Right Lower Lobe Updated: 05/26/18 172 FLUID ALBUMIN 2.3 g/dL Total Protein, Body Fluid [[id number]] Collected: 05/26/18 1412 Specimen: Body Fluid from Lung, Right Lower Lobe Updated: 05/26/18 1729 FLUID TOTAL PROTEIN 4.2 g/dL FLUID TP SOURCE PLEURAL FLUID Cell count, Body Fluid [[id number]] Collected: 05/26/18 1412 Specimen: Body Fluid from Lung, Right Lower Lobe Updated: 05/26/18 1708 FLUID TYPE PLEURAL FLUID COLOR SAMMIE APPEARANCE CLOUDY RBC'S 3,000 /mm3 TOTAL NUCLEATED CELLS 253 /mm3 NEUTROPHILS 22 % LYMPHOCYTES 8 % MONOCYTES/MACROPHAGES 65 % Mesothelial Cells 5 % CELLS COUNTED 100 Culture, Body Fluid [[id number]] Collected: 05/26/18 1513 Specimen: Other from Ascites Fluid Updated: 05/26/18 1631 Specimen Description ASCITES FLUID GRAM STAIN STAIN PERFORMED ON CYTOSPIN GRAM STAIN WBC'S SEEN GRAM STAIN NO EPITHELIAL CELLS SEEN GRAM STAIN NO ORGANISMS SEEN CULTURE PENDING pH, Body Fluid [[id number]] Collected: 05/26/18 141 Specimen: Body Fluid from Lung, Right Lower Lobe Updated: 05/26/18 1508 FLUID PH 7.45 Procalcitonin [[id number]] (Abnormal) Collected: 05/26/18 1214 Updated: 05/26/18 1330 PROCALCITONIN 0.56 (H) ng/mL Cardiac Panel [[id number]] (Abnormal) Collected: 05/26/18 1214 Updated: 05/26/18 1312 [...] ng/mL CK-MB Index 2.7 Brain natriuretic peptide [[id number]] (Abnormal) Collected: 05/26/18 1214 Updated: 05/26/18 1254 [...] radiologist report and is used for image [employer] Skaff[employer] only PROBLEM LIST Active Problems: ESRD on [...] 05/27/18546 Date of Service: 05/27/18543 Status: Signed Electric Car Operator: Vernell Weston RN (Registered Nurse) End of [...] 05/26/181950 Date of Service: 05/26/181947 Status: Signed Electric Car Operator: Saundra Hartley, RN (Registered Nurse) Pt complained [...] 05/26/181804 Date of Service: 05/26/181804 Status: Signed Electric Car Operator: Jae Gutierres RPH (Pharmacist) Renal Dosing Monitoring: [...] E | | | | | | [place] [address] | | | | | | [phone] | | | | | | | [...] | | | | | | at [facility], [address] | | | | | | [employer], | | | | | | [place] [address] | | | | | |Testing performed at [facility], [address] [place] [address] | | | | | | | [...] | | | | | performed at [facility], [address] | | | | | | [facility], | | | | | | [place] [address] | | | | + + + [...] | | | | | | at [facility], [address] | | | | | | [facility], | | | | | | [place] [address] | | | | | |Testing performed at [facility], [address] [facility] [place] [address] | | | | | | | [...] | | | | | performed at [facility], [address] | | | | | | [facility] [place], | | | | | | [place] [address] | | | | + + + [...] Hospital, | | | | | | [place] [address] | | | | | |Testing performed at [facility], [address] [facility], [place] [address] | | | | | | | [...] | | | | | performed at [facility], [address] | | | | | | [place], | | | | | | [place] [address] | | | | + + + [...] | EXTERNAL LAB | | not a dog boarder validated sample type for this method. No reference | | | ranges have been established. Testing performed at [facility], [address] | | | [place] [address] | | + + + + +---------+ [...] EXTERNAL LAB | | is not a dog boarder validated sample type for this method. No | | | reference ranges have been established. Testing performed at [facility], | | | [address] [place] [address] | | + + + + +---------+ [...] | | space is punctured with an 8-Maltese thoracentesis catheter. Fluid is | | | [...] the pleural space is punctured with an 8-Maltese | | thoracentesis catheter. Fluid is aspirated [...] | | | Patient | performed at [facility];[address] | | LAB | | | | [address] [facility];[place], [place] | | | | | | [address] | | | | + + + [...] performed at [facility] | | | | | | [facility];[place], [place] | | | | | | [...] | | | | | | at [facility], [address] | | | | | | [facility], | | | | | | [place] [address] | | | | | |Testing performed at [facility], [address] [place] [address] | | | | | | | [...] | | | | | performed at [facility], [address] | | | | | | [facility], | | | | | | [place] [address] | | | | + + + [...] | | [facility];[address] [place] [address] | | | | | | [facility];[place] [address] | | | | + + + [...] at | | | | | | [facility], [address] [place] [address] | | | | | | [place] | | | | | | [address] | | | | + + [...] | | | | | performed at [facility], [address] | | | | | | [facility], | | | | | | [place] [address] | | | | + + + [...] performed at [facility] | | | | | | [facility];[place], [place] | | | | | | [address] | | | | + + + [...] | | [facility];[address] [place] [address] | | | | | | [facility];[place] [address] | | | | + + + [...] | | | | | [place] [address] | | | | + + + [...] | | | | | | at [facility], [address] | | | | | | [facility], | | | | | | [place] [address] | | | | | |Testing performed at [facility], [address] [place] [address] | | | | | | | [...] EXTERNAL | | | | performed at [facility], [address] | | LAB | | | | [place], | | | | | | [place] [address] | | | | + + + [...] | | | QUALITATIVE | performed at [facility], [address] | | LAB | | | | [address] [place], | | | | | | [place] [address] | | | | + + + [...] [place], | | | | | | [place] [address] | | | | + + + [...] | | | | | performed at [facility], [address] | | | | | | [facility], | | | | | | [place] [address] | | | | + + + [...] | | | preparation was performed by [facility], [address] [place] [address] | | | [place] [address] (Bait Maker: Matt Claudio D.O.; | | | CLIA#: [id number]). Professional interpretation was performed by | | | [facility], [address], | | | [place] [address] (Bait Maker: Daniel Larson M.D.; | | | CLIA#: [id number]).6 Diagnostician: Marie BROOKS ([facility]) | | | Specialty Sales Representative Diagnostician: Anahy Da Silva MD Pathologist | [...] at | | | | | | [facility], [address] [facility] | | | | | | [place] | | | | | | [address] | | | | + + + [...] valve is normal. 18. | | | Tkcz-gg-ekzcijld eccentric mitral regurgitation is present. 19. | [...] valve is normal. 18. | | | Rlxg-dm-eqpwbard eccentric mitral regurgitation is present. 19. | [...] is | | | normal. Mitral Valve: Vvfx-gu-psspwjiw eccentric mitral regurgitation | | | is [...] TR Vmax: 2.74 m/s | | | [facility] Pathology Associate Professor: MW Authenticated by: Robel Yusuf MD Report [...] aortic stenosis.17. The mitral valve is normal.18. Jbej-lq-coxjfvux | | eccentric mitral regurgitation is present.19. [...] | | arch are normal.26. No mass cznsitnvxm17. No clot visualized FINDINGS--------ECG | | rhythm: [...] mitral valve is normal.Mitral Valve: | | Ipsd-oj-rfluvyzq eccentric mitral regurgitation is present.Tricuspid Valve: Severe [...] mlLAESV Index (A-L): 30.43 ml/m2LAAs A2C: 20.97 oo3JEFAM | | A-L A2C: 65.71 mlLALs A2C: 5.68 cmLAAs A4C: 19.94 qo3FKRZM A-L A4C: 60.20 mlLALs | | A4C: 5.60 cmTAPSE: 1.58 cmHR: 79.62 BPMAV maxP.06 mmHgAV meanP.71 | | mmHgAV Vmax: 1.23 m/Elizabeth Vmean: 0.92 m/Elizabeth VTI: 20.07 cmAVA Vmax: 1.74 cm2AVA | | (VTI): 1.93 am2OCQG Vmax: 0.00 cm2/m2AVAI (VTI): 0.00 cm2/m2LVOT maxP.22 [...] maxP.08 | | mmHgTR Vmax: 2.74 m/s [facility] Path[facility] Associate Professor: MWSydneehenticated by: Robel Palacios | | Date/Time: [...] The mitral valve is | | normal.18. Rwdm-hp-zfnjplez eccentric mitral regurgitation is present.19. Severe | [...] and aortic arch are normal.26. No mass cdolopiqdx82. No clot visualized | |LVPWd: 1.27 cm [...] |TR Vmax: 2.74 m/s | | | |[facility] Pathology Associate Professor: MW | |Authenticated by: Robel Yusuf MD [...] The mitral valve is normal. | |18. Fuoh-hs-ehdqirhq eccentric mitral regurgitation is present. | |19. [...] | | LAB | | | | [facility];[address] [place] [address] | | | | | | Blvd;[place] [address] | | | | + + + [...] | | | | | [place] [address] | | | | + + [...] | | LAB | | | | [facility];[address] [facility] | | | | | | [facility];[place] [address] | | | | + + + [...] EXTERNAL | | | | performed at [facility], [address] | | LAB | | | | [place], | | | | | | [place] [address] | | | | + + + [...] | | | | | performed at [facility], [address] | | | | | | [facility], | | | | | | [place] [address] | | | | + + + [...] Methodology | | | Testing performed at [facility], [address] [place] [address] | | | [address] | | + + + + +---------+ [...] NEGATIVE Testing | | | performed at [facility];[address] [place] [address];[place] [address] | | + + + + +---------+ [...] at [facility];[address] | | | | | | [facility];[place] [address] | | | | + + + [...] AT 1702: | | | PREVIOUSLY REPORTED <[id number] TOTAL NUCLEATED CELLS | | | 253 CORRECTED RESULTS CALLED TO DR. GLASS IN ED AT | | | 1705 BY LGJ CORRECTED ON 05/26 AT 1702: PREVIOUSLY REPORTED 374 | | | NEUTROPHILS 22 | | | LYMPHOCYTES 8 | | | MONOCYTES/MACROPHAGES 65 Mesothelial | | | Cells 5 CELLS COUNTED | | | 100 Testing performed at [facility];[address] | | | [address] [facility];[place] [address] | | + + + + +---------+ [...] | EXTERNAL LAB | | not a dog boarder validated sample type for this method. No reference | | | ranges have been established. Testing performed at [facility], [address] | | | [place] [address] FLUID TP SOURCE | | | PLEURAL FLUID Testing performed at [facility];[address] | | | [place] [address] | | + + + + +---------+ [...] | EXTERNAL LAB | | not a dog boarder validated sample type for this method. No | | | reference ranges have been established. Testing performed at [facility], | | | [address] [place] [address] | | + + + + +---------+ [...] EXTERNAL LAB | | Testing performed at [facility];[address] [facility];[place] [address] | | + + + + +---------+ [...] | at [facility];[address] [place] [address] | | | | | | [facility];[place] [address] | | | | + + + [...] | at [facility];[address] [place] [address] | | | | | | [facility];[place] [address] | | | | + + + [...] | | LAB | | | | [facility];[address] [place] [address] | | | | | | [facility];[place] [address] | | | | + + + [...]
--- OUTSIDE RECORDS SUMMARY | ~2019-02-17 | XMS | Encounter Summary ---
Demographics + + + | Address | [address] | | | [place] [address] | + + + | Home Phone [...] | | | | | [place] [address] | | + + + + + | Thania Mallory | ECON | [address] | | | | | [place] [address] | | + + + + + | Deidra Weldon | ECON | [address] | | | | | [place] | | | | | [address] | | + + + + + Care Team Providers + +------+ + | Care Equipment Service Engineer Name | Role | Phone [...] | | | [place] | [facility] | | | | | [facility] | [place], [place] | | | | | [address] [facility] [address] | [address] | | | | | Mailcode: DCAnna | [phone] | | | | | [place] | | | | | | [place], [place] | | | | | | [address] | | | | | | [phone] | | | +--------+--------+ + + + [...] | | | | | | [place], [place] | | | | | | [address] | | | | | | [phone] | | | | | | | | +--------+ + + + + documented as of this encounter Visit Diagnoses Not on filedocumented in this encounter"
--- OUTSIDE RECORDS SUMMARY | ~2019-02-17 | XMS | Encounter Summary ---
Demographics + + + | Address | [address] | | | [place] [address] | + + + | Home Phone [...] Author | [facility] | | | and Josephana | + + + | Organization | [facility] | [...] Team Providers + +------+ + | Care Horse Racer Name | Role | Phone | [...] | | | DEPART[address] [place] | [place] [address] | | | | | [place], [place] | [phone] | | | | | [address] | | | | | | [phone] | | | +--------+ + + + [...] [place] | | | | | | [place] [address] | | | | | | [phone] | | | | | | | | +--------+---------+ + + + documented as of this encounter Visit Diagnoses Not on filedocumented in this encounter"
--- OUTSIDE RECORDS SUMMARY | ~2019-02-17 | XMS | Encounter Summary ---
Demographics + + + | Address | [address] | | | [place] [address] | + + + | Home Phone [...] Author | [facility] | | | and Josephana | + + + | Organization | [facility] [...] Providers + +------+ + | Care Learning And Development Consultant Name | Role | Phone [...] | | [address] | [place] | | | | | [place], [place] | [place], [place] | | | | | [address] | [address] | | | | | [phone] | | | +--------+ + + + [...] [place] | | | | | | [place] [address] | | | | | | [phone] | | | | | | | | +--------+---------+ + + + documented as of this encounter Visit Diagnoses Not on filedocumented in this encounter"
--- OUTSIDE RECORDS SUMMARY | ~2019-02-17 | XMS | Encounter Summary ---
Demographics + + + | Address | [address] | | | [place] [address] | + + + | Home Phone [...] | Author | [facility] | | | and [place] | + + + | Organization | [facility] | [...] Providers + +------+ + | Care Line Service Attendant Name | Role | Phone [...] | | [address] | [place] | | | | | [place], [place] | [place], [place] | | | | | [address] | [address] | | | | | [phone] | | | +--------+ + + + [...] [place] | | | | | | [place] [address] | | | | | | [phone] | | | | | | | | +--------+---------+ + + + documented as of this encounter Visit Diagnoses Not on filedocumented in this encounter"
--- OUTSIDE RECORDS SUMMARY | ~2019-02-17 | XMS | Encounter Summary ---
Demographics + + + | Address | [address] | | | [place] [address] | + + + | Home Phone [...] | | | | | [place] [address] | | + + + + + | Thania Mallory | ECON | [address] | | | | | [place] [address] | | + + + + + | Deidra Weldon | ECON | [address] | | | | | [place] | | | | | [address] | | + + + + + Care Team Providers + +------+ + | Care Revenue Cycle Manager Name | Role | Phone | [...] [address] | | | | | ([facility]) | Anil Griffin | Mailcode: | | | | | Procedures | Long Chan | DCH8S | | | | | TRANSTHORACI | [place], [place] | Alexander | | | | | C | [address] | [place], [place] | | | | | ECHOCARDIOGR | Phone: | [address] | | | | | AM, PEDS | [phone] | Phone: | | | | | | Fax: | [phone] | | | | | | [phone] | Fax: | | | | | | | [phone] | +--------+--------+ + + + + Reason [...] | Update | | | | ANNAL[address] [facility] | [facility] | | | | | Rd [place], [place] | [place], [place] | | | | | [address] | [address] | | | | | [phone] | | | +--------+ + + + [...] Denise | | | | | | [place], [place] | | | | | | [address] | | | | | | [phone] | | | | | | | [...] view image for the detailed interpretation from [facility] results. | CARDIOLOGY | + + + [...] + + | [facility] | [address] | [place], [place] | | | CARDIOLOGY | [address] | [address] | | + + + + + LIT SRUTHI-B WILEY ZHANG (12/20/2012 10:02 AM PDT) + + | Specimen | + + | Blood - Blood | + + + + + + + | Performing | Address | City/State/Zipcode | Phone Number | | Organization | | | | + + + + + | [facility] - | [address] | [place] [address] | | | IMMUNOGENETICS/TRANS | [address] [...] [facility] - | [address] | [place] [address] | | | IMMUNOGENETICS/TRANS | [address] [...] - | [address] | [place], [place] | | | IMMUNOGENETICS/TRANS | [address] [...] - | [address] | [place], [place] | | | IMMUNOGENETICS/TRANS | Suite [...] + | [facility] - | [address] | [place] [address] | | | IMMUNOGENETICS/TRANS | [address] [...] [facility] - | [address] | [place] [address] | | | IMMUNOGENETICS/TRANS | [address] [...] [facility] | | | , SERUM | [facility],[address] | | REG UNIV | | | | [place]orne [place], [facility] | | PTH - INTFC | | | | [address] | | | | | | [phone]. | | | | | | Faisal [...] [facility] | [address] | [place], [place] | | | UNIV PTH - INTFC | | [address] | | + + + + + [...] | + + + + + | [facility] | [address] | [place] [address] | | | HOMERO LAN | LONG [...] | + + + + + | [facility] | [address] | [place] [address] | | | SERVICES, CORE | LONG [...] + | [facility] - | [address] | [place] [address] | | | [place] | | | [...] [facility] | [address] | [place] [address] | | | SERVICES, CORE | PARK [...] | + + + + + | [facility] | [address] | [place] [address] | | | SERVICES, CORE | LONG [...] | + + + + + | [facility] | [address] | [place] [address] | | | SERVICES, CORE | LONG [...] + | [facility] - | [address] | [place] [address] | | | [place] | | | | + + + [...] at: | | | | | | http://www.cdc.gov/nchstp/tb/pubs/tbfactssheets/021548.htm | | | Test performed by: [facility] [address] | | [address] [place].[address] [place] [address] | | + + + + + [...] | + + + + + | [facility] | [address] | [place] [address] | | | SERVICES, SPECIAL | LONG [...] | PROTHROMBIN | No Mutation | | [facility] | | | GENE | [...] gene at | DIAGNOSTIC | | nucleotide 14255. Please note that this assay only detects the | LABORATORIES | | [id number] point mutation and therefore a normal result [...] has been analyzed for the presence of [id number] | | | mutation in the prothrombin [...] | | Heterozygotes for the common prothrombin [id number] mutation constitute | | | approximately 2% of the normal white population (1,2). | | | References: 1.) Edwinat et al. Blood 88, 8538-4724 (1996). 2.) Ricardo | | | et al. Circulation 99, 999-1004 (1998). 3.) Al Montalvo, and | | | Chase. Amer J Clin Path 155, 439-47 (2000). This test was | | | developed and its performance characteristics determined by the [facility] | | | [facility] Diagnostic [facility]. It has | | | not been cleared or approved by the Food and Drug Administration. | | | FDA approval is not required for clinical use of this test, and | | | therefore validation was done as required under the requirements of | | | the Clinical Laboratory Improvement Act of 1988. [facility] | Diagnostic [facility] is a fully | | | licensed and/or accredited clinical laboratory under CLIA, CAP, and | | | the [facility]. Please note that our lab now [...] + + | Performing | Address | City/State/[facility] Mex[facility] | Phone Number | | Organization | | | | + + + + + | [facility] | [address] | [place] [address] | | | DIAGNOSTIC | [address] [...] | + + + + + | [facility] | [address] | [place] [address] | | | SERVICES, CORE | PARK [...] | + + + + + | [facility] | [address] | [place] [address] | | | SERVICES, CORE | PARK [...] + | [facility] | [address] | [place] [address] | | | SERVICES, HOMERO | LONG [...] | + + + + + | [facility] | [address] | [place] [address] | | | HOMERO LAN | LONG [...] | | | | | | [place] [address] | | | | | | [phone]. | | | | | | Faisal [...] [facility] | [address] | [place], [place] | | | UNIV PTH - INTFC | | [address] | | + + + + + [...] | + + + + + | [facility] | [address] | [place] [address] | | | SERVICES, SPECIAL | PARK [...] + + + + | [facility] | [address] [facility] [address] | [place] [address] | | | DIAGNOSTIC | [address] [...] + | [facility] - | [address] | [place] [address] | | | [place] | | | [...] + | [facility] - | [address] | [place] [address] | | | [place] | | | [...] + | [facility] - | [address] | [place] [address] | | | [place] | | | [...] + | [facility] - | [address] | [place] [address] | | | [facility] [...] less......Not | | | | | | Acrjjcbn79.0-21.9 | | | | | | U/mL.........Indetermina [...] available | | | | | | [email or web address] | | | | | | vdx.Performed by [facility] | | | | | | [facility],[address] | | | | | | [place], [place] [address] | | | | | | [phone]. | | | | | | Faisal [...] [facility] | [address] | [place], [place] | | | UNIV PTH - INTFC | | [address] | | + + + + + [...] + | [facility] - | [address] | [place] [address] | | | [place] | | | | + + + [...] | + + + + + | [facility] | [address] | [place] [address] | | | SERVICES, CORE | PARK [...] by | | | | | | Desk,[address] | | | | | | [place], [facility] | | | | | | [address] | | | | | | [phone] Media. | | | | | | Faisal [...] [facility] | [address] | [place], [place] | | | UNIV PTH - INTFC | | [address] | | + + + + + [...] [facility] | [address] | [place] [address] | | | SERVICES, CORE | PARK [...] [facility] | [address] | [place] [address] | | | SERVICES, CORE | PARK [...] [facility] | [address] | [place] [address] | | | HOMERO LAN | LONG [...]
--- OUTSIDE RECORDS SUMMARY | ~2019-02-17 | XMS | Encounter Summary ---
Demographics + + + | Address | [address] | | | [place] [address] | + + + | Home Phone [...] | Author | [facility] | | | and [place]ana | + + + | Organization | [facility] [...] Providers + +------+ + | Care Wire Weaver Helper Name | Role | Phone | [...] | stage renal | [address] | [address] [place] [address] | | | | | disease) | Shun Griffin | [place] Gotti | | | | | ([facility]) | [address] | [address] [place] | | | | | Anemia in | [place], [place] | [place] | | | | | ESRD | [address] | [address] Phone: | | | | | (end-stage | Phone: | [phone] | | | | | renal | [phone] | Fax: | | | | | disease) | Fax: | [phone] | | | | | ([facility]) | [phone] | | | | | | Procedures [...] [address] | renal disease) ([facility]) | | | | [address] | [place], [address] | (Primary Dx) | | | | [place], [place] | [place], [place] | | | | | [address] | [address] | | | | | [phone] | | | +--------+ + + + [...] Will recheck her in 2 weeks. : [place] Fina Joy M.D., Pediatric Nephrology, [facility] documented in th is encounter Plan of [...] | | | | | | [place] [address] | | | | | | [phone] | | | | | | | | +--------+---------+ + + + documented as of this encounter Visit Diagnoses + + | Diagnosis | + + | ESRD (end stage renal disease) (HCC) - Primary End stage renal disease | + + documented in this encounter"
--- OUTSIDE RECORDS SUMMARY | ~2019-02-17 | XMS | Encounter Summary ---
Demographics + + + | Address | [address] | | | [place] [address] | + + + | Home Phone [...] Author | [facility] | | | and Josephana | + + + | Organization | [facility] | [...] Providers + +------+ + | Care Aircraft Ordnance Systems Mechanic Name | Role | Phone | [...] NEPHROLOGY [address] | MD [address] [place] | (Asymptomatic) | | | | [address] | [address] [place] | | | | | [place], [place] | [place] [address] | | | | | [address] | [phone] | | | | | [phone] | | | +--------+ + + + [...] 3:01 PM PDTHemodialysis progress note e-faxed to [facility], Lianna Joy MD, [facility] Renal Transplant Clinic on 11/29/13.Electronical ly signed by Marilyn Palumbo at 11/29/2013 3:02 PM Daniela Marquez MD - 11/22/2013 11 :03 AM PDT Comprehensive Dialysis Monthly Note Date of visit: 11/22/2013 Dialysis Clinic: [facility] Mode [...] 2012. Access: R chest catheter. Re-referred to [facility] transplant in Oct 2013 by pediatric [...] had any infectious complication to date. -per [facility] transplant, AVF is not recommended [...] Pt has been referred to [facility] in [address] Joy. -followed [facility]ianna Joy, [facility] Pediatric Nephrology [facility] Renal transplant documented in this [...] [address] | | | | | | [place] [address] | | | | | | [phone] | | | | | | | [...]
--- OUTSIDE RECORDS SUMMARY | ~2019-02-17 | XMS | Encounter Summary ---
Demographics + + + | Address | [address] | | | [place] [address] | + + + | Home Phone [...] | | | | | [place] [address] | | + + + + + | Thania Mallory | ECON | [address] | | | | | [place] [address] | | + + + + + | Deidra Weldon | ECON | [address] | | | | | [place] | | | | | [address] | | + + + + + Care Team Providers + +------+ + | Care Desktop Publishing Operator Name | Role | Phone | [...] | lab/Provider | | | | [place], [place] | [place], [place] | updated) | | | | [address] | [address] | | | | | [phone] | [phone] | | | | | | | [...] | | | | | [place], [place] | | | | | | [address] | | | | | | [phone] | | | | | | | | +--------+ + + + + documented as of this encounter Visit Diagnoses Not on filedocumented in this encounter"
--- OUTSIDE RECORDS SUMMARY | ~2019-02-17 | XMS | Encounter Summary ---
Demographics + + + | Address | [address] | | | [place] [address] | + + + | Home Phone [...] | | | | | [place] [address] | | + + + + + | Thania Mallory | ECON | [address] | | | | | [place] [address] | | + + + + + | Deidra Weldon | ECON | [address] | | | | | [place] | | | | | [address] | | + + + + + [...] | | | | | [place] [address] [place], | | | | | | [place] [address] | | | +--------+ + + + [...] Denise | | | | | | [place], [place] | | | | | | [address] | | | | | | [phone] | | | | | | | [...] [facility] - | [address], | [place] [address] | | | IMMUNOGENETICS/TRANS | [address] | | | | [facility] | | | | + + + + + documented in this encounter Visit Diagnoses Not on filedocumented in this encounter"
--- OUTSIDE RECORDS SUMMARY | ~2019-02-17 | XMS | Encounter Summary ---
Demographics + + + | Address | [address] | | | [place] [address] | + + + | Home Phone [...] | Author | [facility] | | | and [place]ana | + + + | Organization | [facility] | [...] Providers + +------+ + | Care Armored Transport Service Manager Name | Role | Phone [...] | | | | [address] | [place], [place] | [place], [place] | | | | | stage renal | [address] | [address] Phone: | | | | | disease | Phone: | [phone] | | | | | ([facility]) | [phone] | Fax: | | | | | Infection | Fax: | [phone] | | | | | and | [phone] | | | | | | inflammatory [...] | | [address] | [place], [address] | (Primary Dx); | | | | [place], [place] | [place], [place] | Anemia in ESRD | | | | [address] | [address] | (end-stage renal | | | | [phone] | | disease) ([facility]) [...] There fore she has had construction of [place] radio cephalic fistula in her left arm [...] Chavarria's help with her permanent AVF. C: [place] Fina Joy MD, Renal Transplant Clinic, [facility] documented in thi s encounter Plan of Treatment +--------+---------+ + + + | Date | Type | Specialty | Care Team | Description | +--------+---------+ + + + | 03/05/ | Office | Pulmonology | Denny Alexander | | | 2019 | Visit | | Deny Briggs MD [address] | | | | | | [address] | | | | | | [place] [address] | | | | | | [phone] | | | | | | | [...]
--- OUTSIDE RECORDS SUMMARY | ~2019-02-17 | XMS | Encounter Summary ---
Demographics + + + | Address | [address] | | | [place] [address] | + + + | Home Phone [...] | | | | | [place] [address] | | + + + + + | Thania Mallory | ECON | [address] | | | | | [place] [address] | | + + + + + | Deidra Weldon | ECON | [address] | | | | | [place] | | | | | [address] | | + + + + + Care Team Providers + +------+ + | Care Physical Therapy Aid Name | Role | Phone | [...] | | Coordinators [address] | RN [address] | | | | | [address] [facility] | [facility] | | | | | Rd [place], [place] | [place], [place] | | | | | [address] | [address] | | | | | [phone] | | | +--------+ + + + [...] Denise | | | | | | [place], [place] | | | | | | [address] | | | | | | [phone] | | | | | | | | +--------+ + + + + documented as of this encounter Visit Diagnoses Not on filedocumented in this encounter"
--- OUTSIDE RECORDS SUMMARY | ~2019-02-17 | XMS | Encounter Summary ---
Demographics + + + | Address | [address] | | | [place] [address] | + + + | Home Phone [...] Author | [facility] | | | and Josephana | + + + | Organization | [facility] | | [...] Team Providers + +------+ + | Care Grey Tender Name | Role | Phone | [...] | | [address] | [place], [address] | | | | | [place], [place] | [place], [place] | | | | | [address] | [address] | | | | | [phone] | | | +--------+--------+ + + + [...] | | | | | [place] [address] | | | | | | [phone] | | | | | | | | +--------+---------+ + + + documented as of this encounter Visit Diagnoses Not on filedocumented in this encounter"
--- OUTSIDE RECORDS SUMMARY | ~2019-02-17 | XMS | Encounter Summary ---
Demographics + + + | Address | [address] | | | [place] [address] | + + + | Home Phone [...] | [facility] | | | and Josephana | + + + | Organization | [facility] [...] Team Providers + +------+ + | Care Tuber Machine Cutter Name | Role | Phone | [...] NEPHROLOGY [address] | M, DO [address] | | | | | [address] | [place], [address] | | | | | [place], [place] | [place], [place] | | | | | [address] | [address] | | | | | [phone] | | | +--------+ + + + [...] Dr. Camp's progress note from 12/30/13 to [facility] Nephrology (fx: [phone]) on 01/20/14. documented in this encounter Plan [...] | | | | | | [place] [address] | | | | | | [phone] | | | | | | | | +--------+---------+ + + + documented as of this encounter Visit Diagnoses Not on filedocumented in this encounter"
--- OUTSIDE RECORDS SUMMARY | ~2019-02-17 | XMS | Encounter Summary ---
Demographics + + + | Address | [address] | | | [place] [address] | + + + | Home Phone [...] Author | [facility] | | | and Josephana | + + + | Organization | [facility] | | [...] Providers + +------+ + | Care Cash Application Clerk Name | Role | Phone | [...] | stage renal | [address] | [address] [place] [address] | | | | | disease) | Shun Griffin | [place] Gotti | | | | | ([facility]) | [address] | [address] [place] | | | | | Anemia in | [place], [place] | [address] [place] | | | | | ESRD | [address] | [address] Phone: | | | | | (end-stage | Phone: | [phone] | | | | | renal | [phone] | Fax: | | | | | disease) | Fax: | [phone] | | | | | ([facility]) | [phone] | | | | | | Procedures [...] M, DO [address] | renal disease) ([facility]) | | | | [address] | [place], [address] | (Primary Dx); | | | | [place], [place] | [place], [place] | Anemia in ESRD | | | | [address] | [address] | (end-stage renal | | | | [phone] | | disease) ([facility]) | +--------+ + + + + [...] rechec k her in 2 weeks. CC: [place] Fina Joy MD, Renal Transplant Clinic, [facility] signed by Jorje Camp DO [...] | | | | | [place] [address] | | | | | | [phone] | | | | | | | | +--------+---------+ + + + documented as of this encounter Visit Diagnoses + + | Diagnosis | + + | ESRD (end stage renal disease) ([facility]) - Primary End stage renal disease | + + | Anemia in ESRD (end-stage renal disease) ([facility]) Anemia in chronic kidney disease | + + documented in this encounter"
--- OUTSIDE RECORDS SUMMARY | ~2019-02-17 | XMS | Encounter Summary ---
Demographics + + + | Address | [address] | | | [place] [address] | + + + | Home Phone [...] Author | [facility] | | | and Josephana | + + + | Organization | [facility] | [...] Providers + +------+ + | Care Biofuels Product Manager Name | Role | Phone | [...] to | | | obtain one in [place]. I explained that we would have to [...] | | KIDNEY TRANSPLANT | [address], | (Dara whelan so I | | | | [address] [place] | [place] [address] | called her back to | | | | [address] [place], [place] | [phone] | complete intake | | | | [address] | | questionnaire. She | | | | [phone] | | currently ingests | | | [...] | | | | | one in [place]. I | | | | | | [...] she would have to obtain one in [place]. I explained that we would have to [...] [place] | | | | | | [place] [address] | | | | | | [phone] | | | | | | | | +--------+---------+ + + + documented as of this encounter Visit Diagnoses Not on filedocumented in this encounter"
--- OUTSIDE RECORDS SUMMARY | ~2019-02-17 | XMS | Encounter Summary ---
Demographics + + + | Address | [address] | | | [place] [address] | + + + | Home Phone [...] [facility] | | | and Josephana | + + + | Organization | [facility] | | [...] + +------+ + | Care Air Conditioning Sheet Metal Installer Name | Role | Phone | [...] | | stage renal | [address] | [address] [place] [address] | | | | | disease) | Shun Griffin | [place] | | | | | ([facility]) | [address] | [address] [place] | | | | | Anemia in | [place], [place] | [place], [place] | | | | | ESRD | [address] | [address] Phone: | | | | | (end-stage | Phone: | [phone] | | | | | renal | [phone] | Fax: | | | | | disease) | Fax: | [phone] | | | | | ([facility]) | [phone] | | | | | | Procedures | | | | | | | [place] ESRD | | | | | | [...] | | [address] | [place], [address] | (Primary Dx) | | | | [place], [place] | [place], [place] | | | | | [address] | [address] | | | | | [phone] | | | +--------+ + + + [...] 2 weeks. : [facility] Jonathan Alonso MD, PhD documented in [...] | | | | | [place] [address] | | | | | | [phone] | | | | | | | | +--------+---------+ + + + documented as of this encounter Visit Diagnoses + + | Diagnosis | + + | ESRD (end stage renal disease) (HCC) - Primary End stage renal disease | + + documented in this encounter"
--- OUTSIDE RECORDS SUMMARY | ~2019-02-17 | XMS | Encounter Summary ---
Demographics + + + | Address | [address] | | | [place] [address] | + + + | Home Phone [...] | | | | | [place] [address] | | + + + + + | Thania Mallory | ECON | [address] | | | | | [place] [address] | | + + + + + | Deidra Weldon | ECON | [address] | | | | | [place] | | | | | [address] | | + + + + + Care Team Providers + +------+ + | Care Car Wash Attendant Name | Role | Phone | [...] Family sheet & | | | | [address] | [address] | crossmatch report) | | | | Loop Mailcode: | [place], [place] | | | | | [address] Physician's | [address] | | | | | [address] | [phone] | | | | | [place], [place] | | | | | | [address] | | | | | | [phone] | | | +--------+ + + + [...] | | | | | | [place], [place] | | | | | | [address] | | | | | | [phone] | | | | | | | | +--------+ + + + + documented as of this encounter Visit Diagnoses Not on filedocumented in this encounter"
--- OUTSIDE RECORDS SUMMARY | ~2019-02-17 | XMS | Encounter Summary ---
Demographics + + + | Address | [address] | | | [place] [address] | + + + | Home Phone [...] | Author | [facility] | | | and Josephana | + + + | Organization | [facility] | [...] Providers + +------+ + | Care Lumber Mover Name | Role | Phone | + [...] | NEPHROLOGY [address] | [address] | renal disease) ([facility]) | | | | [address] | [address] [place] | (Primary Dx); | | | | [place], [place] | [place] [address] | Secondary | | | | [address] | [phone] | hyperparathyroidism | | | | [phone] | | ([facility]); | | | [...] [address] | | | | | | [place] [address] | | | | | | [phone] | | | | | | | [...]
--- OUTSIDE RECORDS SUMMARY | ~2019-02-17 | XMS | Encounter Summary ---
Demographics + + + | Address | [address] | | | [place] [address] | + + + | Home Phone [...] | | | | | [place] [address] | | + + + + + | Thaina Mallory | ECON | [address] | | | | | [place] [address] | | + + + + + | Deidra Weldon | ECON | [address] | | | | | [place] | | | | | [address] | | + + + + + Care Team Providers + +------+ + | Care Pulmonologist Intensivist Name | Role | Phone | + [...] | | | | | Caro Chan [place], | | | | | | [place] [address] | | | +--------+ + + + [...] | | | | | | [place], [place] | | | | | | [address] | | | | | | [phone] | | | | | | | [...] [facility] - | [address] | [place] [address] | | | IMMUNOGENETICS/TRANS | [address] [...] [facility] - | [address], | [place] [address] | | | IMMUNOGENETICS/TRANS | [address] [...] [facility] - | [address] | [place] [address] | | | IMMUNOGENETICS/TRANS | [address] | | | | [facility] | | | | + + + + + documented in this encounter Visit Diagnoses + + | Diagnosis | + + | End stage renal disease (HCC) End stage renal disease | + + documented in this encounter"
--- OUTSIDE RECORDS SUMMARY | ~2019-02-17 | XMS | Encounter Summary ---
Demographics + + + | Address | [address] | | | [place] [address] | + + + | Home Phone [...] | | | | | [place] [address] | | + + + + + | Thania Mallory | ECON | [address] | | | | | [place] [address] | | + + + + + | Deidra Weldon | ECON | [address] | | | | | [place] | | | | | [address] | | + + + + + Care Team Providers + +------+ + | Care Shuttle Spotter Name | Role | Phone | + [...] | | Coordinators [address] | [address] | | | | | [address] [facility] | Salvo Caro Chan | | | | | [place], [place] | [place], [place] | | | | | [address] | [address] | | | | | [phone] | [phone] | | | | | | | [...] Denise | | | | | | [place], [place] | | | | | | [address] | | | | | | [phone] | | | | | | | | +--------+ + + + + documented as of this encounter Visit Diagnoses Not on filedocumented in this encounter"
--- OUTSIDE RECORDS SUMMARY | ~2019-02-17 | XMS | Encounter Summary ---
Demographics + + + | Address | [address] | | | [place] [address] | + + + | Home Phone [...] | Author | [facility] | | | and Josephana | + + + | Organization | [facility] | | | [...] Providers + +------+ + | Care Outreach Liaison Name | Role | Phone | [...] | | stage renal | [address] | [address] [place] [address] | | | | | disease) | Shun Griffin | Jaciel Gotti | | | | | ([facility]) | [address] | [address] [place] | | | | | Anemia in | [place], [place] | [place] | | | | | ESRD | [address] | [address] Phone: | | | | | (end-stage | Phone: | [phone] | | | | | renal | [phone] | Fax: | | | | | disease) | Fax: | [phone] | | | | | ([facility]) | [phone] | | | | | | Procedures [...] [address] | [place], [address] | disease) ([facility]) | | | | [place], [place] | [facility], [place] | (Primary Dx); ESRD | | | | [address] | [address] | (end stage renal | | | | [phone] | | disease) ([facility]) | +--------+ + + + [...] Hypertension--from review of her treatment data in [facility] EHR, BP appears stable at her [...] Will recheck her iron profile next [facility]. Plan: 1. Again, I counseled Dara length [...] Will recheck her in 2 weeks. CC: [facility] Fina Joy MD, [facility] [...] | | | | | | [place] [address] | | | | | | [phone] | | | | | | | [...]
--- OUTSIDE RECORDS SUMMARY | ~2019-02-17 | XMS | Encounter Summary ---
Demographics + + + | Address | [address] | | | [place] [address] | + + + | Home Phone [...] | | | | | [place] [address] | | + + + + + | Thania Mallory | ECON | [address] | | | | | [place] [address] | | + + + + + | Deidra Weldon | ECON | [address] | | | | | [place] | | | | | [address] | | + + + + + Care Team Providers + +------+ + | Care Photographic Machine Operator Name | Role | Phone | + +------+ + | Shahid Camargo MD | PCP | | + +------+ + Encounter Details +--------+------+ + + + | Date | Type | Department | Care Team | Description | +--------+------+ + + + | 12/20/ | Lab | [facility] | | Allergic purpura- | | 2012 | | 7th Floor [address] | | MEDICARE [address] | | | | [address] [place], | | (Primary Dx) | | | | [place] [address] | | | | | | [phone] | | | +--------+------+ + + + [...] [place] | | | | | | [address] | | | | | | [phone] | | | | | | | [...] | + +--------+ + + + | JNUE WYMAN VIRUS | Routin | 12/20/2012 | [...] - | [address] | [place], [place] | | | IMMUNOGENETICS/TRANS | Suite [...] - | [address] | [place], [place] | | | IMMUNOGENETICS/TRANS | Suite [...] | [facility] - | [address] | [place] [address] | | | IMMUNOGENETICS/TRANS | [address] [...] [facility] - | [address] | [place] [address] | | | IMMUNOGENETICS/TRANS | [address] [...] [facility] - | [address] | [place] [address] | | | IMMUNOGENETICS/TRANS | [address] [...] - | [address] | [place], [place] | | | IMMUNOGENETICS/TRANS | Suite [...] - | [address] | [place], [place] | | | IMMUNOGENETICS/TRANS | Suite [...] [facility] - | [address] | [place] [address] | | | IMMUNOGENETICS/TRANS | [address] [...] + + | [facility] - | [address] | [place] [address] | | | IMMUNOGENETICS/TRANS | [address] [...] | + + + + + | [facility] | [address] | [place] [address] | | | SERVICES, | [address] [...] [facility] | [address] | [place] [address] | | | SERVICES, | [address] [...] | + + + + + | [facility] | [address] | [place] [address] | | | SERVICES, CORE | PARK [...] UNIV | | | | Pippa Sauceda, [facility] | | PTH - INTFC | | | | [address] | | | | | | [phone]. | | | | | | Faisal [...] [facility] | [address] | [place], [place] | | | UNIV PTH - INTFC | | [address] | | + + + + + [...] + + + + + | [facility] | [address] | [place] [address] | | | SERVICES, HOMERO | PARK [...] | + + + + + | [facility] | [address] | [place] [address] | | | SERVICES, CORE | LONG [...] + | [facility] - | [address] | [place] [address] | | | [place] | | | [...] [facility] | [address] | [place] [address] | | | SERVICES, CORE | PARK [...] [facility] | [address] | [place] [address] | | | SERVICES, CORE | PARK [...] | + + + + + | [facility] | [address] | [place] [address] | | | SERVICES, CORE | PARK [...] + | [facility] - | [address] | [place] [address] | | | [place] | | | [...] at: | | | | | | http://www.cdc.gov/nchstp/tb/pubs/tbfactssheets/136201.htm | | | Test performed by: [facility] [address] | | [address] [place] [address] | | + + + + + [...] [facility] | [address] | [place] [address] | | | SERVICES, SPECIAL | PARK [...] gene at | DIAGNOSTIC | | nucleotide 86014. Please note that this assay only detects the | LABORATORIES | | [id number] point mutation and therefore a normal result [...] has been analyzed for the presence of [id number] | | | mutation in the prothrombin [...] | | Heterozygotes for the common prothrombin [id number] mutation constitute | | | approximately 2% of the normal white population (1,2). | | | References: 1.) Poort et al. Blood 88, 0729-0532 (1996). 2.) Ricardo | | | et al. Circulation 99, 999-1004 (1998). 3.) Al Montalvo, and | | | Press. Amer J Clin Path 155, 439-47 (2000). This test was | | | developed and its performance characteristics determined by the [facility] | | | [facility] Diagnostic [facility]. It has | | | not been cleared or approved by the Food and Drug Administration. | | | FDA approval is not required for clinical use of this test, and | | | therefore validation was done as required under the requirements of | | | the Clinical Laboratory Improvement Act of 1988. The [facility] | | | Diagnostic Laboratories [facility] is a fully | | | licensed and/or accredited clinical laboratory under CLIA, CAP, and | | | the [facility]. Please note that our lab now [...] + + | Performing | Address | City/State/[facility] Cent[facility]ode | Phone Number | | Organization | | | | + + + + + | [facility] | [address] | [place] [address] | | | DIAGNOSTIC | [address] [...] [facility] | [address] | [place] [address] | | | SERVICES, CORE | PARK [...] | + + + + + | [facility] | [address] | [place] [address] | | | SERVICES, CORE | LONG [...] [facility] | [address] | [place] [address] | | | SERVICES, CORE | PARK [...] + + + + + | [facility] | [address] | [place] [address] | | | SERVICES, HOMERO | LONG [...] | | | | | | Laboratories,[address] [facility] | | | | | | Rajendra, [facility] [place] [address] | | | | | | [phone]. | | | | | | Faisal [...] [facility] | [address] | [place], [place] | | | UNIV PTH - INTFC | | [address] | | + + + + + [...] + + + + + | [facility] | [address] | [place] [address] | | | SERVICES, SPECIAL | PARK [...] C PCR, | Undetected | IU/mL | [facility] | | | QUANT | | | [...] + + + + | [facility] | [address], | [place] [address] | | | DIAGNOSTIC | [address] [...] + | [facility] - | [address] | [place] [address] | | | [place] | | | [...] + | [facility] - | [address] | [place] [address] | | | [place] | | | [...] + | [facility] - | [address] | [place] [address] | | | [place] | | | [...] + | [facility] - | [address] | [place] [address] | | | [facility] | | | | + + [...] less......Not | | | | | | Nnvftjit22.0-21.9 | | | | | | U/mL.........Indetermina [...] available | | | | | | [email or web address] | | | | | | vdx.Performed by [facility] | | | | | | Laboratories,[address] [facility] | | | | | | Rajendra [facility] [place] [address] | | | | | | [phone]. | | | | | | Faisal [...] [facility] | [address] | [place], [place] | | | UNIV PTH - INTFC | | [address] | | + + + + [...] | | | Final CULTURE | | [facility] | | | | RESULT:No growth (<1000 [...] + | [facility] - | [address] | [place] [address] | | | [place] | | | | + + + [...] + + + + + | [facility] | [address] | [place] [address] | | | SERVICES, CORE | PARK [...] by | | | | | | [employer],[address] | | | | | | Pippa Sauceda, [facility],[place] | | | | | | [address] | | | | | | [phone]. | | | | | | 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
--- OUTSIDE RECORDS SUMMARY | ~2019-02-17 | XMS | Encounter Summary ---
Demographics + + + | Address | [address] | | | [place] [address] | + + + | Home Phone [...] | | | | | [place] [address] | | + + + + + | Thania Mallory | ECON | [address] | | | | | [place] [address] | | + + + + + | Deidra Weldon | ECON | [address] | | | | | [place] | | | | | [address] | | + + + + + Care Team Providers + +------+ + | Care Auto Service Mechanic Name | Role | Phone | [...] | Committee | | | | [address] [facility] | [facility] | recommendations) | | | | Rd [place], [place] | [place], [place] | | | | | [address] | [address] | | | | | [phone] | | | +--------+ + + + [...] Denise | | | | | | [place] | | | | | | [address] | | | | | | [phone] | | | | | | | | +--------+ + + + + documented as of this encounter Visit Diagnoses Not on filedocumented in this encounter"
--- OUTSIDE RECORDS SUMMARY | ~2019-02-17 | XMS | Encounter Summary ---
Demographics + + + | Address | [address] | | | [place] [address] | + + + | Home Phone [...] + | Author | [facility] | | | and Josephana | + + + | Organization | [facility] | | [...] Providers + +------+ + | Care Account Specialist Name | Role | Phone | [...] | Encounter | JOY | MD Emanuel [address] | | | | | [address] | [facility] | | | [address] | [place], [place] | | | | | [place], [place] | [address] | | | | | [address] | [phone] | | | | | [phone] | | | +--------+ + + + [...] [address] | | | | | | [place] [address] | | | | | | [phone] | | | | | | | | +--------+---------+ + + + documented as of this encounter Visit Diagnoses Not on filedocumented in this encounter"
--- OUTSIDE RECORDS SUMMARY | ~2019-02-17 | XMS | Encounter Summary ---
Demographics + + + | Address | [address] | | | [place] [address] | + + + | Home Phone [...] | Author | [facility] | | | and Josephana | + + + | Organization | [facility] [...] Providers + +------+ + | Care Hadoop Consultant Name | Role | Phone | + +------+ + | Tien Nicholson MD | PCP | | + +------+ + Encounter Details +--------+ + + + + | Date | Type | Department | Care Team | Description | +--------+ + + + + | 08/20/ | Hospital | [facility] | Ramón Dunn | Non-cardiogenic | | 2019 - | Encounter | [facility] | MD Juan Alberto [address] | pulmonary edema | | | | CARE FLOOR [address] [place], [place] | | | 08/23/ | | [address] | [address] | | | 2019 | | [place], [place] | | | | | | [address] | | | | | | [phone] | | | +--------+ + + + [...] 1300 Date of Service: 08/23/18818 Status: Signed Glass Cylinder Flanger: Paty Kline DO (Physician) Patient: Dara Weldon [...] presented to the emergency d epartment of [facility] in [place] on 08/21 for dyspnea and underwent right t horacentesis with removal of 2.5L of fluid. Patient was sent home after the procedure. Muriel rtly thereafter patient became very short of breath and started having pinkish frothy sputum . Patient also developed right-sided chest pain over area of thoracentesis. She returned t o emergency department of [facility]. Patient was tachycardic and short of b reath but was saturating well on room air. Chest x-ray showed pulmonary edema of right bridgette g but left lung was reportedly normal. Patient was transferred to [facility] for acute hypoxic respiratory failure and [...] Nicholson MD [address] [place] [id number] Medication List CHANGE how you take these [...] 08/23/181305 Date of Service: 08/23/181305 Status: Signed Glass Cylinder Flanger: Mitzy Schilling RN (Registered Nurse) Pt A&Ox4, [...] Date of Service: 08/23/18 1144 Status: Signed Glass Cylinder Flanger: Patria Norman RN (Registered Nurse) CM placed call to Pts PCP and they will contact pt to schedule follow up appointment as gopal n as possible. CM placed call to [facility] Pulmonology to attempt to move pts [...] 08/23/187 Date of Service: 08/23/181136 Status: Signed Glass Cylinder Flanger: Mitzy Schilling RN (Registered Nurse) Resumed care from ABRIL Carranza. Agree with assessments thus far. Will continue to monitor. Mitzy Schilling RN onver arturo Transaction, Provider Unknown - 08/23/2018 2:34 AM PDT Nurse Progress Note by Hannha Madrigal RN at 08/23/184 Author: Hannah Madrigal RN Service: (none) Author Type: Registered Nurse Filed: 08/23/18 0530 Date of Service: 08/23/18233 Status: Signed Glass Cylinder Flanger: Hannah Madrigal RN (Registered Nurse) VSS, pt [...] Paco Macedo RN at 08/22/181823 Author: Paco Maecdo RN Service: (none) Author Type: Registered Nurse Filed: 08/22/181827 Date of Service: 08/22/181823 Status: Signed Glass Cylinder Flanger: Paco Macedo RN (Registered Nurse) Patient is [...] by Brent Greenberg at 08/22/181800 Author: Brent Greebnerg Service: (none) Author Type: Filed: 08/22/181808 Date of Service: 08/22/181800 Status: Signed Glass Cylinder Flanger: Brent Greenberg () tapper hand appreciated. Pt sitting up in bed. Pt [...] to find a grief support group in [facility] where she lives. Chp affirmed this as an excellent idea. Chp assured pt of continuing g ood thoughts for pt. Pt thanked p for visit. Chaplain Brent Greenberg pPaty samson DO - 08/22/2018 2:55 PM PDT Progress Notes by Paty Kline DO at 08/22/18 7669 Author: Paty Kline DO Service: Hospitalist Author Type: Physician Filed: 08/22/18 9267 Date of Service: 08/22/18 9575 Status: Addendum Glass Cylinder Flanger: Paty Kline DO (Physician) Related Notes: Original Note by Paty Kline DO (Physician) filed at 08/22/18 3587 [facility] Service: Hospitalist Progress Note Hospital Day: [...] May 2018 presented to emergency department of [facility] in [place] this morning and underwent right thoracentesis. Patient was sent home after the procedure. However patient became very short of breath and started havi ng pinkish frothy sputum. Patient also developed right-sided chest pain over area of thorac entesis. Hence she returned to emergency department of [facility]. Patient w as tachycardic and short of breath but was saturating well on room air. Chest x-ray showed pulmonary edema of right lung but left lung was normal as per ED physician." Patient was transferred to [facility] for monitoring as she will need [...] 08/22/18932 Date of Service: 08/22/18928 Status: Signed Glass Cylinder Flanger: Jessica Martell RN (Registered Nurse) 08/22/18922 Discharge Planning Evaluation Admitting Diagnosis Non-cardiogenic pulmonary edema Readmission No Living Arrangements Alone Support Systems Friends/neighbors;Family members Type of Residence Private residence House type Apartment Bathrooms on 1st Floor 1-Full Independent with ADL's Yes Independent with Mobility Yes Home Care Services No Caregiver after Discharge No Mental Status Oriented Prior functional status independent Power of Water Analyst No Anticipated Discharge Plan Post Acute Care Needs None at this time Plan communicated to patient/family Yes Resources Financial concerns Comment (needs met but uses food bank and family/neighbors assist) Transportation issues No (friends assist w/transport to HD and appointments) Patient/Family concerns No Prescription Plan Yes Name of Pharmacy [facility] - [place], [place] Previous home health equipment No Vascular [...] concerns and states she uses hemodialysis at [facility] on Mon, Wed, Fri but denies [...] 08/22/18435 Date of Service: 08/22/18433 Status: Signed Glass Cylinder Flanger: Jaymie Tafoya RN (Registered Nurse) Pt currently [...] 08/21/181831 Date of Service: 08/21/181828 Status: Signed Glass Cylinder Flanger: Luz Pablo RN (Registered Nurse) Complains of rib/upper abdomen pain. Medicated, pain improved. Ambulating in room. HD today , 2.7L off. HD in a.m. At 0600. End of shift review complete. Paty Godinez DO - 08/21/2018 7:24 AM PDT Progress Notes by Paty Kline DO at 08/21/18 0724 Author: Paty Kline DO Service: Hospitalist Author Type: Physician Filed: 08/21/18 2249 Date of Service: 08/21/18723 Status: Signed Glass Cylinder Flanger: Paty Kline DO (Physician) [facility] Service: Hospitalist Progress Note Hospital Day: [...] May 2018 presented to emergency department of [facility] in [place] this morning and underwent right thoracentesis. Patient was sent home after the procedure. However patient became very short of breath and started havi ng pinkish frothy sputum. Patient also developed right-sided chest pain over area of thorac entesis. Hence she returned to emergency department of [facility]. Patient w as tachycardic and short of breath but was saturating well on room air. Chest x-ray showed pulmonary edema of right lung but left lung was normal as per ED physician." Patient was transferred to [facility] for monitoring as she will need [...] Note by Anahy Springer RN at 08/21/18 8560 Author: Anahy Springer RN Service: (none) Author Type: Registered Nurse Filed: 08/21/18 7765 Date of Service: 08/21/18 1315 Status: Addendum Glass Cylinder Flanger: Anahy Springer RN (Registered Nurse) Related Notes: Original Note by Anahy Springer RN (Registered Nurse) filed at 08/21/18 3790 VSS. Pt c/o pain x2, pt medicated w/PRN pain meds per MAY, relief noted, and appears to be resting comfortably at this time. No acute changes from previous shift. Bed in low locked position. Call light within reach. End of shift review completed by this RN. Anahy Springer RN onver arturo aOkesaction, Provider Unknown - 08/20/2018 7:02 PM PDT Progress Notes by Kacy Moody RPH at 08/20/181901 Author: Kacy Moody RPH Service: Pharmacy Author Type: Pharmacist Filed: 08/20/181901 Date of Service: 08/20/181901 Status: Signed Glass Cylinder Flanger: Kacy Moody RPH (Pharmacist) Clinical Pharmacy Note: [...] [address] | | | | | | [place] [address] | | | | | | [phone] | | | | | | | [...] [place];[address] | | | | | | [facility];[place], [place] | | | | | | [address] | | | | + + + [...] LAB | | | | performed at [facility], [address] | | | | | [facility], | | | | | | [place] [address] | | | | | |MACRO | | | | | |Testing performed at [facility], [facility] [place] [address] | | | | | | | [...] | | | | | [place] [address] | | | | + + + [...] [address], | | | | | | [place] [address] | | | | + + + [...] | | | | | | [place] [address] | | | | + + + [...] EXTERNAL | | | | performed at [place];[facility] | | LAB | | | | [address];[place], [place] | | | | | | [address] [...] [place];[address] | | | | | | [facility];[place], [place] | | | | | | [address] | | | | + + + [...]
--- OUTSIDE RECORDS SUMMARY | ~2019-02-17 | XMS | Encounter Summary ---
Demographics + + + | Address | [address] | | | [place] [address] | + + + | Home Phone [...] | | | | | [place] [address] | | + + + + + | Thania Mallory | ECON | [address] | | | | | [place] [address] | | + + + + + | Deidra Weldon | ECON | [address] | | | | | [place] | | | | | [address] | | + + + + + Care Team Providers + +------+ + | Care Nephrologist Name | Role | Phone | + [...] Coordinators [address] | RN [address] [facility] | | | | | [address] [facility] | [facility] | | | | | Rd [place], [place] | [place], [place] | | | | | [address] | [address] | | | | | [phone] | | | +--------+ + + + [...] | | | | | | [place], [place] | | | | | | [address] | | | | | | [phone] | | | | | | | | +--------+ + + + + documented as of this encounter Visit Diagnoses Not on filedocumented in this encounter"
--- OUTSIDE RECORDS SUMMARY | ~2019-02-17 | XMS | Encounter Summary ---
Demographics + + + | Address | [address] | | | [place] [address] | + + + | Home Phone [...] | | | | | [place] [address] | | + + + + + | Thania Mallory | ECON | [address] | | | | | [place] [address] | | + + + + + | Deidra Weldon | ECON | [address] | | | | | [place] | | | | | [address] | | + + + + + [...] Decision | | | | [address]NAL[address] [facility] [facility] | [facility] | | | | | Rd [place], [place] | [place], [place] | | | | | [address] | [address] | | | | | [phone] | | | +--------+ + + + [...] Denise | | | | | | [place], [place] | | | | | | [address] | | | | | | [phone] | | | | | | | | +--------+ + + + + documented as of this encounter Visit Diagnoses Not on filedocumented in this encounter"
--- OUTSIDE RECORDS SUMMARY | ~2019-02-17 | XMS | Encounter Summary ---
Demographics + + + | Address | [address] | | | [place] [address] | + + + | Home Phone [...] + | Author | [facility] | | | and Josephana | + + + | Organization | [facility] | [...] Team Providers + +------+ + | Care Crude Unit Operator Name | Role | Phone [...] stage renal | [address] | [address] [place] [address] | | | | | disease) | Shun Griffin | Jac[place] Gotti | | | | | ([facility]) | [address] | [address] | | | | | Anemia in | [place], [place] | [place] | | | | | ESRD | [address] | [address] Phone: | | | | | (end-stage | Phone: | [phone] | | | | | renal | [phone] | Fax: | | | | | disease) | Fax: | [phone] | | | | | ([facility]) | [phone] | | | | | | Procedures [...] | | [address] | [place], [address] | (Primary Dx) | | | | [place], [place] | [place], [place] | | | | | [address] | [address] | | | | | [phone] | | | +--------+ + + + [...] should let myself or the battery charger conveyor line no. She will be rechecked in 2 weeks. : [place] Fina documented in t his encounter Plan [...] DAVIDSON | | | | | | [place] [address] | | | | | | [phone] | | | | | | | | +--------+---------+ + + + documented as of this encounter Visit Diagnoses + + | Diagnosis | + + | ESRD (end stage renal disease) (HCC) - Primary End stage renal disease | + + documented in this encounter"
--- OUTSIDE RECORDS SUMMARY | ~2019-02-17 | XMS | Encounter Summary ---
Demographics + + + | Address | [address] | | | [place] [address] | + + + | Home Phone [...] | | | | | [place] [address] | | + + + + + | Thania Mallory | ECON | [address] | | | | | [place] [address] | | + + + + + | Deidra Weldon | ECON | [address] | | | | | [place] | | | | | [address] | | + + + + + Care Team Providers + +------+ + | Care Marketing Analytics Specialist Name | Role | Phone | [...] | Requested | | | | [facility] | [facility] | | | | | Rd [place], [place] | [place], [place] | | | | | [address] | [address] | | | | | [phone] | | | +--------+ + + + [...] [place] | | | | | | [address] | | | | | | [phone] | | | | | | | | +--------+ + + + + documented as of this encounter Visit Diagnoses Not on filedocumented in this encounter"
--- OUTSIDE RECORDS SUMMARY | ~2019-02-17 | XMS | Encounter Summary ---
Demographics + + + | Address | [address] | | | [place] [address] | + + + | Home Phone [...] | | | | | [place] [address] | | + + + + + | Thania Mallory | ECON | [address] | | | | | [place] [address] | | + + + + + | Deidra Weldon | ECON | [address] | | | | | [place] | | | | | [address] | | + + + + + Care Team Providers + +------+ + | Care Pe Teacher Name | Role | Phone | [...] | Nephrology at | MD Emanuel [address] [facility] | f/u appt on | | | | Alexander | [address] | 03/16/12 to [place]) | | | | [facility] | [facility] [place] | | | | | [address] | [address] | | | | | Mailcode: DCAnna | [phone] | | | | | Alexander | | | | | | [place], [place] | | | | | | [address] | | | | | | [phone] | | | +--------+ + + + [...] Denise | | | | | | [place], [place] | | | | | | [address] | | | | | | [phone] | | | | | | | | +--------+ + + + + documented as of this encounter Visit Diagnoses Not on filedocumented in this encounter"
--- OUTSIDE RECORDS SUMMARY | ~2019-02-17 | XMS | Encounter Summary ---
Demographics + + + | Address | [address] | | | [place] [address] | + + + | Home Phone [...] | | | | | [place] [address] | | + + + + + | Thania Mallory | ECON | [address] | | | | | [place] [address] | | + + + + + | Deidra Weldon | ECON | [address] | | | | | [place] | | | | | [address] | | + + + + + Care Team Providers + +------+ + | Care Body And Fender Worker Name | Role | Phone | [...] | | | | | [address] [place], | | | | | | [place] [address] | | | +--------+ + + + [...] [place] | | | | | | [address] | | | | | | [phone] | | | | | | | [...] DANILO - | [address] | [place] [address] | | | IMMUNOGENETICS/TRANS | [address] | | | | [facility] | | | | + + + + + documented in this encounter Visit Diagnoses + + | Diagnosis | + + | End stage renal disease (HCC) End stage renal disease | + + documented in this encounter"
--- OUTSIDE RECORDS SUMMARY | ~2019-02-17 | XMS | Encounter Summary ---
Demographics + + + | Address | [address] | | | [place] [address] | + + + | Home Phone [...] | Author | [facility] | | | and Josephana | + + + | Organization | [facility] | [...] | | KIDNEY TRANSPLANT | [address] [place], | | | | | [address] [place] | [place] [address] | | | | | [address] [place] | [phone] | | | | | [address] | | | | | | [phone] | | | +--------+ + + + [...] card. I also called the Fina Sparrow adoption social worker, and let her know t [...] DAVIDSON | | | | | | [facility] [address] | | | | | | [phone] | | | | | | | | +--------+---------+ + + + documented as of this encounter Visit Diagnoses Not on filedocumented in this encounter"
--- OUTSIDE RECORDS SUMMARY | ~2019-02-17 | XMS | Encounter Summary ---
Demographics + + + | Address | [address] [facility] | | | [place] [address] | + + + | Home Phone [...] | | | | | [place] [address] | | + + + + + | Thania Mallory | ECON | [address] | | | | | [place] [address] | | + + + + + | Deidra Weldon | ECON | [address] | | | | | [place] | | | | | [address] | | + + + + + Care Team Providers + +------+ + | Care Massotherapist Name | Role | Phone | + +------+ + | Shahid Camargo MD | PCP | | + +------+ + Encounter Details +--------+ + + + + | Date | Type | Department | Care Team | Description | +--------+ + + + + | 12/19/ | Document-Sc | UNKNOWN DEPARTMENT | Unknown . | | | 2012 | anned | [address] [facility] | | | | | | [facility] | | | | | | [place], [place] | | | | | | [address] | | | +--------+ + + + [...] Denise | | | | | | [place], [place] | | | | | | [address] | | | | | | [phone] | | | | | | | | +--------+ + + + + documented as of this encounter Visit Diagnoses Not on filedocumented in this encounter"
--- OUTSIDE RECORDS SUMMARY | ~2019-02-17 | XMS | Encounter Summary ---
Demographics + + + | Address | [address] | | | [place] [address] | + + + | Home Phone [...] | | | | | [place] [address] | | + + + + + | Thania Mallory | ECON | [address] | | | | | [place] [address] | | + + + + + | Deidra Weldon | ECON | [address] | | | | | [place] | | | | | [address] | | + + + + + Care Team Providers + +------+ + | Care Associate Professor Of Education Name | Role | Phone | + +------+ + | Shahid Camargo MD | PCP | | + +------+ + Encounter Details +--------+ + + + + | Date | Type | Department | Care Team | Description | +--------+ + + + + | 12/20/ | Hospital | Radiology at [facility] | | | | 2012 | Encounter | [address] [facility] | | | | | | Mailcode: L340 | | | | | | Alexander | | | | | | [place], [place] | | | | | | [address] | | | | | | [phone] | | | +--------+ + + + [...] Denise | | | | | | [place], [place] | | | | | | [address] | | | | | | [phone] | | | | | | | [...] | e | 9:29 AM | MEDICARE 7408 | procedure are in the | | [...]
--- OUTSIDE RECORDS SUMMARY | ~2019-02-17 | XMS | Encounter Summary ---
Demographics + + + | Address | [address] | | | [place] [address] | + + + | Home Phone [...] | | | | | [place] [address] | | + + + + + | Thania Mallory | ECON | [address] | | | | | [place] [address] | | + + + + + | Deidra Weldon | ECON | [address] | | | | | [place] | | | | | [address] | | + + + + + Care Team Providers + +------+ + | Care Academic Advisement Director Name | Role | Phone | [...] form) | | | | ANNAL[address] [facility] [facility] | [facility] | | | | | Rd [place], [place] | [place], [place] | | | | | [address] | [address] | | | | | [phone] | | | +--------+ + + + [...] Denise | | | | | | [place] | | | | | | [address] | | | | | | [phone] | | | | | | | | +--------+ + + + + documented as of this encounter Visit Diagnoses Not on filedocumented in this encounter"
--- OUTSIDE RECORDS SUMMARY | ~2019-02-17 | XMS | Encounter Summary ---
Demographics + + + | Address | [address] | | | [place] [address] | + + + | Home Phone [...] | Author | [facility] | | | and Josephana | + + + | Organization | [facility] | | [...] Team Providers + +------+ + | Care Pharmaceutical Assistant Name | Role | Phone | [...] | stage renal | [address] | [address] [place] [address] | | | | | disease) | Shun Griffin | Jac[place] Gotti | | | | | ([facility]) | [address] | [address] | | | | | Anemia in | [place], [place] | [place] | | | | | ESRD | [address] | [address] Phone: | | | | | (end-stage | Phone: | [phone] | | | | | renal | [phone] | Fax: | | | | | disease) | Fax: | [phone] | | | | | ([facility]) | [phone] | | | | | | Procedures [...] | (Primary Dx); | | | | [place], [place] | [place], [place] | Secondary | | | | [address] | [address] | hyperparathyroidism | | | | [phone] | | ([facility]) | +--------+ + + + [...] 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 Outpatient Prescriptions Marked as Taking for the [...] treatment will eventually subtract f rom her usp survival. I think that basically she needs [...] DAVIDSON | | | | | | [place] [address] | | | | | | [phone] | | | | | | | [...]
--- OUTSIDE RECORDS SUMMARY | ~2019-02-17 | XMS | Encounter Summary ---
Demographics + + + | Address | [address] | | | [place] [address] | + + + | Home Phone [...] | | | | | [place] [address] | | + + + + + | Thania Mallory | ECON | [address] | | | | | [place] [address] | | + + + + + | Deidra Weldon | ECON | [address] | | | | | [place] | | | | | [address] | | + + + + + Care Team Providers + +------+ + | Care Agricultural Technical Officer Name | Role | Phone [...] | | | | Keven Drew | [place], [place] | | | | | | [place] | [address] | | | | | | [place] | Phone: | | | | | | [address] | [phone] | | | | | | Phone: | | | | | | | [phone] | | | | | | | Fax: | | | | | | | [phone] | | +--------+--------+ + + + + Encounter Details +--------+---------+ + + + | Date | Type | Department | Care Team | Description | +--------+---------+ + + + | 05/11/ | Office | Specialty Clinics | Sudhakar Joy | HSP | | 2015 | Visit | at [facility] [address] | DMD [address] | [facility] | | | [place] Mailcode: | [address] | purpura) nephritis | | | | [facility] [address] | [place], [place] | (Primary Dx); Anemia | | | | [place] | [address] | of chronic kidney | | | | [address] | [phone] | failure, stage 5 | | | | [phone] | | (HCC) | +--------+---------+ + + [...] 11:19 AM PSTKeep working on the lo VERTILAS phosphorus and financial plan See me in [...] [address] Mail code [facility] [place], [place] [id number] Estrella Brennan MA - 05/12/2015 10:48 AM [...] Denise | | | | | | [place], [place] | | | | | | [address] | | | | | | [phone] | | | | | | | [...]
--- OUTSIDE RECORDS SUMMARY | ~2019-02-17 | XMS | Encounter Summary ---
Demographics + + + | Address | [address] | | | [place] [address] | + + + | Home Phone [...] | Author | [facility] | | | and Josephana | + + + | Organization | [facility] | [...] Team Providers + +------+ + | Care International Sales Manager Name | Role | Phone [...] NEPHROLOGY [address] | M, DO [address] [place] | | | | | [address] | [place], [address] | | | | | [place], [place] | [place], [place] | | | | | [address] | [address] | | | | | [phone] | | | +--------+ + + + [...] through the Nephrology Se ction at either [facility] or [facility]? 6. Anemia--will continue the EPO at current dose and recheck the Fe stores next quarter. Plan: 1. Her PTH appears stable on a minimal dose of Hectorol. 2. Will continue to monitor her BP closely. 3. She appears very cooperative and collegial here in clinic. CC: [place] Fina documented in thi s encounter Plan [...] | | | | [place] [address] | | | | | | [phone] | | | | | | | | +--------+---------+ + + + documented as of this encounter Visit Diagnoses Not on filedocumented in this encounter"
--- OUTSIDE RECORDS SUMMARY | ~2019-02-17 | XMS | Encounter Summary ---
Demographics + + + | Address | [address] | | | [place] [address] | + + + | Home Phone [...] + | Author | [facility] | | | and Josephana | + + + | Organization | [facility] | | [...] Team Providers + +------+ + | Care Debubblizer Name | Role | Phone | + +------+ + PCP | Unavailable | + +------+ + Encounter Details +--------+ + + + + | Date | Type | Department | Care Team | Description | +--------+ + + + + | 04/30/ | Hospital | CC [facility] GENERIC OP | Sudhakar Joy | | | 2010 | Encounter | JOY | MD Emanuel [address] | | | | | [address]PART[address] | [facility] | | | | | [address] | [place], [place] | | | | | [place], [place] | [address] | | | | | [address] | [phone] | | | | | [phone] | | | +--------+ + + + [...] DAVIDSON | | | | | | [place] [address] | | | | | | [phone] | | | | | | | | +--------+---------+ + + + documented as of this encounter Visit Diagnoses Not on filedocumented in this encounter"
--- OUTSIDE RECORDS SUMMARY | ~2019-02-17 | XMS | Encounter Summary ---
Demographics + + + | Address | [address] | | | [place] [address] | + + + | Home Phone [...] + | Author | [facility] | | | and Josephana | + + + | Organization | [facility] | [...] Providers + +------+ + | Care Hand Coper Name | Role | Phone | + [...] + + | 11/15/ | Telephone | [facility] | George Torres RN | Medication Problem | | 2019 | | [address] | | (CMN O2) | | | | [place] | | | | | | [address] | | | | | | [phone] | | | +--------+ + + + [...] DAVIDSON | | | | | | [place] [address] | | | | | | [phone] | | | | | | | | +--------+---------+ + + + documented as of this encounter Visit Diagnoses Not on filedocumented in this encounter"
--- OUTSIDE RECORDS SUMMARY | ~2019-02-17 | XMS | Encounter Summary ---
Demographics + + + | Address | [address] | | | [place] [address] | + + + | Home Phone [...] + | Author | [facility] | | | and Josephana | + + + | Organization | [facility] | | [...] Team Providers + +------+ + | Care Sow Farm Technician Name | Role | Phone | [...] + + | 01/22/ | Refill | [facility] | Daniela Alejandre | Medication Refill | | 2018 | | CARDIOLOGY GERALD Castellanos Farm Service Adviser | | | | | [address] | | | | | | [place] | | | | | | [address] | | | | | | [phone] | | | +--------+--------+ + + + [...] DAVIDSON | | | | | | [place] [address] | | | | | | [phone] | | | | | | | | +--------+---------+ + + + documented as of this encounter Visit Diagnoses Not on filedocumented in this encounter"
--- OUTSIDE RECORDS SUMMARY | ~2019-02-17 | XMS | Encounter Summary ---
Demographics + + + | Address | [address] | | | [place] [address] | + + + | Home Phone [...] | | | | | [place] [address] | | + + + + + | Thania Mallory | ECON | [address] | | | | | [place] [address] | | + + + + + | Deidra Weldon | ECON | [address] | | | | | [place] | | | | | [address] | | + + + + + Care Team Providers + +------+ + | Care Cigar Brander Name | Role | Phone | + [...] | | [address] [facility] | [facility] | | | | | Rd [place], [place] | [place], [place] | | | | | [address] | [address] | | | | | [phone] | | | +--------+ + + + [...] | | | | | | [place], [place] | | | | | | [address] | | | | | | [phone] | | | | | | | | +--------+ + + + + documented as of this encounter Visit Diagnoses Not on filedocumented in this encounter"
--- OUTSIDE RECORDS SUMMARY | ~2019-02-17 | XMS | Encounter Summary ---
Demographics + + + | Address | [address] | | | [place] [address] | + + + | Home Phone [...] | [facility] | | | and Josephana | + + + | Organization | [facility] | | [...] + +------+ + | Care Customer Support Assistant Name | Role | Phone [...] [address] | [place], [address] | (Primary Dx) | | | | [place], [place] | [place], [place] | | | | | [address] | [address] | | | | | [phone] | | | +--------+ + + + [...] DAVIDSON | | | | | | [place] [address] | | | | | | [phone] | | | | | | | | +--------+---------+ + + + documented as of this encounter Visit Diagnoses + + | Diagnosis | + + | ESRD (end stage renal disease) (HCC) - Primary End stage renal disease | + + documented in this encounter"
--- OUTSIDE RECORDS SUMMARY | ~2019-02-17 | XMS | Encounter Summary ---
Demographics + + + | Address | [address] | | | [place] [address] | + + + | Home Phone [...] | Author | [facility] | | | and Josephana | + + + | Organization | [facility] | | [...] Providers + +------+ + | Care Grain Unloader Name | Role | Phone | + [...] stage renal | [address] | [address] [place] [address] | | | | | disease) | Shun Griffin | Jac[place] Gotti | | | | | ([facility]) | [address] | [address] | | | | | Anemia in | [place], [place] | [place] | | | | | ESRD | [address] | [address] Phone: | | | | | (end-stage | Phone: | [phone] | | | | | renal | [phone] | Fax: | | | | | disease) | Fax: | [phone] | | | | | ([facility]) | [phone] | | | | | | Procedures [...] M, DO [address] | renal disease) ([facility]) | | | | [address] | [place], [address] | (Primary Dx) | | | | [place], [place] | [place], [place] | | | | | [address] | [address] | | | | | [phone] | | | +--------+ + + + [...] parathyroidectomy she should let myself or the clinic charge nurse no. She will be rechecked in 2 weeks. : [place] Fina documented in t his encounter Plan [...] DAVIDSON | | | | | | [place] [address] | | | | | | [phone] | | | | | | | | +--------+---------+ + + + documented as of this encounter Visit Diagnoses + + | Diagnosis | + + | ESRD (end stage renal disease) (HCC) - Primary End stage renal disease | + + documented in this encounter"
--- OUTSIDE RECORDS SUMMARY | ~2019-02-17 | XMS | Encounter Summary ---
Demographics + + + | Address | [address] | | | [place] [address] | + + + | Home Phone [...] | | | | | [place] [address] | | + + + + + | Thania Mallory | ECON | [address] | | | | | [place] [address] | | + + + + + | Deidra Weldon | ECON | [address] | | | | | [place] | | | | | [address] | | + + + + + Care Team Providers + +------+ + | Care Fractionating Still Operator Name | Role | Phone [...] | MD Emanuel [address] [facility] | Recommendations | | | | Alexander | [address] | | | | | [facility] | [place], [place] | | | | | [address] | [address] | | | | | Mailcode: DCH7 | [phone] | | | | | Alexander | | | | | | [place], [place] | | | | | | [address] | | | | | | [phone] | | | +--------+ + + + [...] | | | | | | [place] | | | | | | [address] | | | | | | [phone] | | | | | | | | +--------+ + + + + documented as of this encounter Visit Diagnoses Not on filedocumented in this encounter"
--- OUTSIDE RECORDS SUMMARY | ~2019-02-17 | XMS | Encounter Summary ---
Demographics + + + | Address | [address] | | | [place] [address] | + + + | Home Phone [...] | | | | | [place] [address] | | + + + + + | Thania Mallory | ECON | [address] | | | | | [place] [address] | | + + + + + | Deidra Weldon | ECON | [address] | | | | | [place] | | | | | [address] | | + + + + + Care Team Providers + +------+ + | Care Superintendent Greens Name | Role | Phone | + [...] on pt's | | | | Rd [place], [place] | [place], [place] | support plan & | | | | [address] | [address] | social changes) | | | | [phone] | | | +--------+ + + + [...] Denise | | | | | | [place], [place] | | | | | | [address] | | | | | | [phone] | | | | | | | | +--------+ + + + + documented as of this encounter Visit Diagnoses Not on filedocumented in this encounter"
--- OUTSIDE RECORDS SUMMARY | ~2019-02-17 | XMS | Encounter Summary ---
Demographics + + + | Address | [address] | | | [place] [address] | + + + | Home Phone [...] | Author | [facility] | | | and Josephana | + + + | Organization | [facility] | | [...] Providers + +------+ + | Care Advertising Executive Name | Role | Phone | [...] | | | | | kidney | Shnu Griffin | [place] Gotti | | | | | disease([address]. [address] | [address] [place] | | | | | [address]) End | [place], [place] | [place], [place] | | | | | stage renal | [address] | [address] Phone: | | | | | disease | Phone: | [phone] | | | | | ([facility]) | [phone] | Fax: | | | | | Infection | Fax: | [phone] | | | | | and | [phone] | | | | | | inflammatory [...] | | [address] | [place], [address] | (Primary Dx) | | | | [place], [place] | [place], [place] | | | | | [address] | [address] | | | | | [phone] | | | +--------+ + + + [...] into the vein Three times a w [place]. epoetin jenna (EPOGEN, PROCRIT) 10,000 units/mL injection [...] #30, with no refill. I did discuss vilam t with her young age, that most [...] she should keep up t his effort assisted. 3. Heat, Daniel Denny, OTC, and tramadol, short term for her back. 4. Will recheck her in 1 week. CC: [place] Fina Joy MD, [facility], Good [...] DAVIDSON | | | | | | [place] [address] | | | | | | [phone] | | | | | | | | +--------+---------+ + + + documented as of this encounter Visit Diagnoses + + | Diagnosis | + + | ESRD (end stage renal disease) (HCC) - Primary End stage renal disease | + + documented in this encounter
--- OUTSIDE RECORDS SUMMARY | ~2019-02-17 | XMS | Encounter Summary ---
Demographics + + + | Address | [address] | | | [place] [address] | + + + | Home Phone [...] | Author | [facility] | | | and Josephana | + + + | Organization | [facility] | [...] Providers + +------+ + | Care Warehouse Order Selector Name | Role | Phone | [...] | NEPHROLOGY [address] | [address] | | | | | [address] | [address] [place] | | | | | [place], [place] | [place] [address] | | | | | [address] | [phone] | | | | | [phone] | | | +--------+ + + + [...] | | | | | [place] [address] | | | | | | [phone] | | | | | | | | +--------+---------+ + + + documented as of this encounter Visit Diagnoses Not on filedocumented in this encounter"
--- OUTSIDE RECORDS SUMMARY | ~2019-02-17 | XMS | Encounter Summary ---
Demographics + + + | Address | [address] | | | [place] [address] | + + + | Home Phone [...] | | | | | [place] [address] | | + + + + + | Thania Mallory | ECON | [address] | | | | | [place] [address] | | + + + + + | Deidra Weldon | ECON | [address] | | | | | [place] | | | | | [address] | | + + + + + Care Team Providers + +------+ + | Care Dietetic Tech Name | Role | Phone | [...] 2005 | Registratio | Anil Elizondo | [phone] | | | | n | Rd Mailcode: RPB07 | | | | | | [place], [place] | | | | | | [address] | | | | | | [phone] | | | +--------+ + + + [...] Denise | | | | | | [place], [place] | | | | | | [address] | | | | | | [phone] | | | | | | | [...] | [facility] | | | PATHOLOGY | [facility] | | DEPARTMENT | | [...] Garcia | | | | | | [facility], | | | | | | [place],labeled [place] | | | | | | kidney [...] number | | | | | | [id number]/lab | | | | | | Microscopic [...] wall | | | | | | tafumvssA5o: | | | | | | NegativeFibrinogen: [...] | + + + + + | [facility] | [address] | [place] [address] | | | PATHOLOGY | [address] | | | + + + + + | [facility] | [address] | [place] [address] | | | PATHOLOGY | [address] | | | + + + + + documented in this encounter Visit Diagnoses Not on filedocumented in this encounter"
--- OUTSIDE RECORDS SUMMARY | ~2019-02-17 | XMS | Encounter Summary ---
Demographics + + + | Address | [address] | | | [place] [address] | + + + | Home Phone [...] | | | | | [place] [address] | | + + + + + | Deidra Weldon | ECON | [address] | | | | | [place] | | | | | [address] | | + + + + + Care Team Providers + +------+ + | Care Tray Service Worker Name | Role | Phone | [...] on pt's | | | | Rd [place], [place] | [place], [place] | support plan & | | | | [address] | [address] | social changes) | | | | [phone] | | | +--------+ + + + [...] Denise | | | | | | [place], [place] | | | | | | [address] | | | | | | [phone] | | | | | | | | +--------+ + + + + documented as of this encounter Visit Diagnoses Not on filedocumented in this encounter"
--- OUTSIDE RECORDS SUMMARY | ~2019-02-17 | XMS | Encounter Summary ---
Demographics + + + | Address | [address] | | | [place] [address] | + + + | Home Phone [...] Author | [facility] | | | and Josephana | + + + | Organization | [facility] [...] | | stage renal | [address] | [address] [place] [address] | | | | | disease) | Shun Griffin | [place] | | | | | ([facility]LY [facility]) | [address] | [address] [place] | | | | | Anemia in | [place], [place] | [place], [place] | | | | | ESRD | [address] | [address] Phone: | | | | | (end-stage | Phone: | [phone] | | | | | renal | [phone] | Fax: | | | | | disease) | Fax: | [phone] | | | | | ([facility]) | [phone] | | | | | | Procedures | | | | | | | NE ESRD | | | | | | [...] | | [address] | [place], [address] | (Primary Dx) | | | | [place], [place] | [place] | | | | | [address] | [address] | | | | | [phone] | | | +--------+ + + + [...] Will recheck her in 2 weeks. : [facility] Jonathan Alonso MD, PhD documented in thi [...] [address] | | | | | | [place] [address] | | | | | | [phone] | | | | | | | | +--------+---------+ + + + documented as of this encounter Visit Diagnoses + + | Diagnosis | + + | ESRD (end stage renal disease) (HCC) - Primary End stage renal disease | + + documented in this encounter"
--- OUTSIDE RECORDS SUMMARY | ~2019-02-17 | XMS | Encounter Summary ---
Demographics + + + | Address | [address] | | | [place] [address] | + + + | Home Phone [...] | Author | [facility] | | | and Josephana | + + + | Organization | [facility] | [...] Providers + +------+ + | Care Paper Pattern Folder Name | Role | Phone | [...] NEPHROLOGY [address] | MD [address] [place] | (Asymptomatic) | | | | [address] | [address] [place] | | | | | [place], [place] | [place] [address] | | | | | [address] | [phone] | | | | | [phone] | | | +--------+ + + + [...] AM PDTHEMO progress note manually faxed to [facility] [place], e-faxed to [facility] on 09/30. Daniela Marquez MD - 09/20/2013 2:55 PM PDT Comprehensive Dialysis Monthly Note Date of visit: 09/20/2013 Dialysis Clinic: [facility] Mode of dialysis: Hemodialysis [...] 2012. Access: R chest catheter. Peritonitis, dialysis-associated ([facility]) 07/29/2013 Note Last Updated: 07/29/2013 Due to MSSA. Had tunneled infection as well. PD catheter removed in July 2013. On Keflex till 08/01/13. History of Henoch-Schonlein purpura Note Last Updated: 07/29/2013 Diagnosed at age 10[address] Joy, pediatric dental assistant. Anemia in ESRD (end-stage renal disease) [...] living donor. Pt has been referred to [facility]. -pt will f/u with them next month [facility] Lianna Joy, [facility] Pediatric Nephrology documented in this encounter [...] [address] | | | | | | [place] [address] | | | | | | [phone] | | | | | | | [...]
--- OUTSIDE RECORDS SUMMARY | ~2019-02-17 | XMS | Encounter Summary ---
Demographics + + + | Address | [address] | | | [place] [address] | + + + | Home Phone [...] Author | [facility] | | | and Josephana | + + + | Organization | [facility] | | [...] Providers + +------+ + | Care Meter Readers Supervisor Name | Role | Phone | [...] | | stage renal | [address] | [address] [place] [address] | | | | | disease) | Shun Griffin | [place]otti | | | | | ([facility]) | [address] | [address] [place] | | | | | Anemia in | [place], [place] | [place] | | | | | ESRD | [address] | [address] Phone: | | | | | (end-stage | Phone: | [phone] | | | | | renal | [phone] | Fax: | | | | | disease) | Fax: | [phone] | | | | | ([facility]) | [phone] | | | | | | Procedures | | | | | | | [place] OFFICE | | | | | | [...] | | [address] | [place], [address] | (Primary Dx) | | | | [place], [place] | [place], [place] | | | | | [address] | [address] | | | | | [phone] | | | +--------+ + + + [...] week from records in [facility] E[facility], per [facility] Nurse Elisabeth Portillo RN. Her BP, PO4, and PTH are consisently high. 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 [facility] calciphylaxis. 4. 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 5. Will recheck her in 2 weeks. : Valders Fina Alonso MD, PhD documented in thi [...] [address] | | | | | | [place] [address] | | | | | | [phone] | | | | | | | | +--------+---------+ + + + documented as of this encounter Visit Diagnoses + + | Diagnosis | + + | ESRD (end stage renal disease) (HCC) - Primary End stage renal disease | + + documented in this encounter"
--- OUTSIDE RECORDS SUMMARY | ~2019-02-17 | XMS | Encounter Summary ---
Demographics + + + | Address | [address] | | | [place] [address] | + + + | Home Phone [...] | | | | | [place] [address] | | + + + + + | Thania Mallory | ECON | [address] | | | | | [place] [address] | | + + + + + | Deidra Weldon | ECON | [address] | | | | | [place] | | | | | [address] | | + + + + + Care Team Providers + +------+ + | Care Agricultural Extension Educator Name | Role | Phone | [...] | | | | | Hospital | [facility] | | | | | | [address] | [place] | | | | | | [address] | [place], [place] | | | | | | [place] | [address] | | | | | | [place] | Phone: | | | | | | [address] | [phone] | | | | | | Phone: | | | | | | | [phone] | | | | | | | Fax: | | | | | | | [phone] | | +--------+--------+ + + + + Encounter Details +--------+---------+ + + + | Date | Type | Department | Care Team | Description | +--------+---------+ + + + | 05/24/ | Office | Specialty Clinics | Sudhakar Joy | HSP | | 2017 | Visit | at [facility] [address] | MD Emanuel [address] | (David | | | | [address] Mailcode: | [address] | purpura) nephritis | | | | [facility] ernbadriana | [place], [place] | (Primary Dx); 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 Her adult knitting machine operator could refer her to adult transplant when [...] [facility] [address] Mail code [facility] [place], [place] [address] documented in this encounter Plan of Treatment +--------+ + + + + | Date | Type | Specialty | Care Team | Description | +--------+ + + + + | 05/04/ | [facility] | Adult Acute Care | El Starr MD | | | 2022 | Encounter | | [address] | | | | | | [place], [place] | | | | | | [address] | | | | | | [phone] | | | | | | | [...]
--- OUTSIDE RECORDS SUMMARY | ~2019-02-17 | XMS | Encounter Summary ---
Demographics + + + | Address | [address] | | | [place] [address] | + + + | Home Phone [...] | Author | [facility] | | | and Josephana | + + + | Organization | [facility] [...] Team Providers + +------+ + | Care Athletic Training Internship Name | Role | Phone | [...] + + | 12/19/ | Telephone | [facility] | George Torres RN | Congestive Heart | | 2019 | | [address] | | Failure (Reviewed | | | | [place], [place] | | for CHF Quality | | | | [address] | | Measures) | | | | [phone] | | | +--------+ + + + [...] [address] | | | | | | [place] [address] | | | | | | [phone] | | | | | | | | +--------+---------+ + + + documented as of this encounter Visit Diagnoses Not on filedocumented in this encounter"
--- OUTSIDE RECORDS SUMMARY | ~2019-02-17 | XMS | Encounter Summary ---
Demographics + + + | Address | [address] | | | [place] [address] | + + + | Home Phone [...] | | | | | [place] [address] | | + + + + + | Thania Mallory | ECON | [address] | | | | | [place] [address] | | + + + + + | Deidra Weldon | ECON | [address] | | | | | [place] | | | | | [address] | | + + + + + Care Team Providers + +------+ + | Care Flute Grinder Name | Role | Phone | [...] Dr | | | | | ([facility]) | [address] [place] | Mailcode: | | | | | Procedures | [address] | [facility] | | | | | TRANSTHORACI | [place], [place] | [place] | | | | | C | [address] | [place], [place] | | | | | ECHOCARDIOGR | Phone: | [address] | | | | | AM, PEDS | [phone] | Phone: | | | | | | Fax: | [phone] | | | | | | [phone] | Fax: | | | | | | | [phone] | +--------+--------+ + + + + Reason [...] | Update | | | | [address] [facility] | [facility] | | | | | Rd [place], [place] | [place], [place] | | | | | [address] | [address] | | | | | [phone] | | | +--------+ + + + [...] Denise | | | | | | [place], [place] | | | | | | [address] | | | | | | [phone] | | | | | | | [...] view image for the detailed interpretation from [employer] results. | CARDIOLOGY | + + + [...] + + | [facility] | [address] | [place], [place] | | | CARDIOLOGY | [address] | [address] | | + + + + + [...] - | [address] | [place] [address] | | | IMMUNOGENETICS/TRANS | [address] [...] [facility] - | [address] | [place] [address] | | | IMMUNOGENETICS/TRANS | [address] [...] - | [address] | [place], [place] | | | IMMUNOGENETICS/TRANS | [address] [...] - | [address] | [place], [place] | | | IMMUNOGENETICS/TRANS | [address] [...] - | [address] | [place] [address] | | | IMMUNOGENETICS/TRANS | [address] [...] [facility] - | [address] | [place] [address] | | | IMMUNOGENETICS/TRANS | [address] [...] [facility] | | | , SERUM | [facility],[address] | | REG UNIV | | | | [address], [facility] | | PTH - INTFC | | | | [address] | | | | | | [phone]. | | | | | | Faisal [...] [facility] | [address] | [place], [place] | | | UNIV PTH - INTFC | | [address] | | + + + + + [...] | + + + + + | [facility] | [address] | [place] [address] | | | HOMERO LAN | LONG [...] + + + + | [facility] | [address] | [place] [address] | | | SERVICES, CORE | [address] | | | + + + + + VARICELLA ZOSTER IGG, SERUM (12/20/2012 8:39 AM PDT) + + + + + + | Component | Value | Ref Range | Performed | Pathologist | | | | | At | Signature | + + + + + + | VARICELLA | Equivocal (A) | | [facility] - | | | ZOSTER IGG | [...] + | [facility] - | [address] | [place] [address] | | | [place] | | | [...] [facility] | [address] | [place] [address] | | | SERVICES, CORE | PARK [...] + + + + | [facility] | [address] | [place] [address] | | | SERVICES, CORE | LONG [...] | + + + + + | [facility] | [address] | [place] [address] | | | SERVICES, CORE | LONG [...] | + + + + + | [facility] - | [address] | [place] [address] | | | [place] | | | | + + + [...] at: | | | | | | http://www.cdc.gov/nchstp/tb/pubs/tbfactssheets/848295.htm | | | Test performed by: [facility] [address] | | [address] [place] [address] | | + + + + + [...] + + + + | [facility] | [address] | [place] [address] | | | SERVICES, SPECIAL | LONG [...] | PROTHROMBIN | No Mutation | | [facility] | | | GENE | [...] gene at | DIAGNOSTIC | | nucleotide [id number]. Please note that this assay only detects the | LABORATORIES | | X36250C point mutation and therefore a normal result [...] has been analyzed for the presence of H96432P | | | mutation in the prothrombin [...] | | Heterozygotes for the common prothrombin [id number] mutation constitute | | | approximately 2% of the normal white population (1,2). | | | References: 1.) Edwinat et al. Blood 88, 1183-6574 (1996). 2.) Ricardo | | | et al. Circulation 99, 999-1004 (1998). 3.) Al Montalvo, and | | | Chase. Amer J Clin Path 155, 439-47 (2000). This test was | | | developed and its performance characteristics determined by the [facility] | | | [facility] Diagnostic [facility]. It has | | | not been cleared or approved by the Food and Drug Administration. | | | FDA approval is not required for clinical use of this test, and | | | therefore validation was done as required under the requirements of | | | the Clinical Laboratory Improvement Act of 1988. The [facility] | Diagnostic [facility] is a fully | | | licensed and/or accredited clinical laboratory under CLIA, CAP, and | | | the [facility]. Please note that our lab now [...] + + + | [facility] | [address] | [place] [address] | | | DIAGNOSTIC | [address] [...] + + + + | [facility] | [address] | [place] [address] | | | SERVICES, CORE | PARK [...] [facility] | [address] | [place] [address] | | | SERVICES, CORE | PARK [...] [facility] | [address] | [place] [address] | | | SERVICES, HOMERO | LONG [...] | + + + + + | [facility] | [address] | [place] [address] | | | HOMERO LAN | LONG [...] | | | | | | [place] [address] | | | | | | [phone].[email or web address]. | | | | | | Faisal [...] [facility] | [address] | [place], [place] | | | UNIV PTH - INTFC | | [address] | | + + + + + [...] + + + + | [facility] | [address] | [place] [address] | | | SERVICES, SPECIAL | PARK [...] + + + + | [facility] | [address] | [place] [address] | | | DIAGNOSTIC | [address] [...] HEPATITIS B | Negative | Negative | [facility] - | | | SURFACE | | [...] + | [facility] - | [address] | [place] [address] | | | [place] | | | [...] + | [facility] - | [address] | [place] [address] | | | [place] | | | [...] + | [facility] - | [address] | [place] [address] | | | [place] | | | [...] + | [facility] - | [address] | [place] [address] | | | [facility] [...] less......Not | | | | | | Wkbqzbxv98.0-21.9 | | | | | | U/mL.........Indetermina [...] available | | | | | | atwww.[employer]/eb | | | | | | vdx.Performed by [facility] | | | | | | [facility],[address] | | | | | | [place], [place] [address] | | | | | | [phone].aruplab. | | | | | | Faisal [...] [facility] | [address] | [place], [place] | | | UNIV PTH - INTFC | | [address] | | + + + + + [...] + | [facility] - | [address] | [place] [address] | | | [place] | | | | + + + [...] [facility] | [address] | [place] [address] | | | SERVICES, CORE | PARK [...] by | | | | | | [employer],[address] | | | | | | [address] [place], [facility] | | | | | | [address] | | | | | | [phone].[employer] | | | | | | Faisal [...] [facility] | [address] | [place], [place] | | | UNIV PTH - INTFC | | [address] | | + + + + + [...] [facility] | [address] | [place] [address] | | | SERVICES, CORE | PARK [...] [facility] | [address] | [place] [address] | | | SERVICES, CORE | PARK [...] LABORATORY | [address] | [place] [address] | | | HOMERO LAN | LONG [...]
--- OUTSIDE RECORDS SUMMARY | ~2019-02-17 | XMS | Encounter Summary ---
Demographics + + + | Address | [address] | | | [place] [address] | + + + | Home Phone [...] | | | | | [place] [address] | | + + + + + | Thania Mallory | ECON | [address] | | | | | [place] [address] | | + + + + + | Deidra Weldon | ECON | [address] | | | | | [place] | | | | | [address] | | + + + + + [...] Elizondo | | | | | ([facility]) | [address] | [place], | | | | | Allergic | [place], [place] | [place] | | | | | purpura | [address] | [address] | | | | | ([facility]) | Phone: | Phone: | | | | | | [phone] | [phone] | | | | | | Fax: | Fax: | | | | | | [phone] | [phone] | +--------+--------+ + + + + Encounter Details +--------+---------+ + + + | Date | Type | Department | Care Team | Description | +--------+---------+ + + + | 12/19/ | Office | Kidney Transplant | Clinic, [address]tx [address] | Patient on | | 2012 | Visit | at Physician's | [facility] | peritoneal dialysis | | | | [address] [place], [place] | (HCC) (Primary Dx); | | | | [address] | [address] | Unspecified | | | | Mailcode: L590 | | essential | | | | [facility] | | hypertension; 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
--- OUTSIDE RECORDS SUMMARY | ~2019-02-17 | XMS | Clinical Summary ---
Demographics + + + | Address | [address] | | | [place] [address] | + + + | Home Phone [...] | [facility] | | | and [place] | + + + | Organization | [facility] [...] Providers + +------+ + | Care Tire And Tube Repairer Name | Role | Phone | [...] Active Kidney Transplant Waiting List at [facility]: | | 03/07/2014 | + + [...] | | Treated by Dr. Joy, pediatric dermatologist. | + + + +---+ | ESRD [...] | | but reclotted). Listed at [facility] for kidney transplant - status | [...] Del Castillo MD | dialysis ([facility]); | | 2018 | | | | Chronic pleural | | | | | | effusion; | | | | | | Noncompliance with | | | | | | renal dialysis | | | | | | ([facility]); Acute | | | | | | respiratory | | | | | | distress; Anemia in | | | | | | ESRD (end-stage | | | | | | renal disease) | | | | | | ([facility]); At high risk | | | | | | for electrolyte | | | | | | imbalance; ESRD on | | | | | | hemodialysis ([facility]); | | | | | | Hyperphosphatemia; | | | | | | Noncompliance; | | | | | | Recurrent right | | | | | | pleural effusion; | | | | | | Hypoalbuminemia | +--------+ + + + + | 01/22/ | Refill | Cardiology | Daniela Alejandre | Medication Refill | | 2018 | | | Emanuel Can Top Setter | | +--------+ + + + + | 01/07/ | Hospital | Internal Medicine | Florian Nelson, | Hyperkalemia | | 2019 - | Encounter | | Megan Fields DO | (Primary Dx); ESRD | | | | | Nicholas Sutton MD | needing dialysis | | 01/10/ | | | Piedad Mosquera, | ([facility]); Acute | | 2018 | | | [...] | | ([facility]); At high risk | | | | | | for electrolyte | | | | | | imbalance; 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 | | | | | | failure ([facility]); | | | | | | 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 | | | | | | ([facility]); ESRD on | | | | | | hemodialysis ([facility]); | | | | | | Noncompliance; [...] 12/17/ | Telephone | Case Management | [place], | Appointment | | 2018 | | [...] | ([facility]) (Primary Dx); | | | | | | Pneumonia of right | | | | | | lower lobe due to | | | | | | infectious organism | | | | | | ([facility]); Hypoxia; | | | | | | Hypervolemia, | | | | | | unspecified | | | | | | hypervolemia type; | | | | | | ESRD on dialysis | | | | | | ([facility]); Hyperkalemia; | | | | | | Acute on chronic | | | | | | respiratory failure | | | | | | with hypoxia and | | | | | | hypercapnia ([facility]); | | | | | | Acute respiratory | | | | | | failure with hypoxia | | | | | | ([facility]); Anemia in | | | | | | ESRD (end-stage | | | | | | renal disease) | | | | | | ([facility]); At high risk | | | | | | for electrolyte | | | | | | imbalance; Awaiting | | | | | | organ transplant | | | | | | status; 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 | | | | | | failure ([facility]); | | | | | | Chronic right-sided | | | | | | heart failure ([facility]); | | | | | | 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 | | | | | | ([facility]); ESRD on | | | | | | hemodialysis ([facility]); | | | | | | History [...] | | | | function ([facility]); | | | | | | Moderate to severe | | | | | | pulmonary | | | | | | hypertension ([facility]); | | | | | | Low grade fever; | | | | | | Noncompliance of | | | | | | patient with renal | | | | | | dialysis ([facility]); | [...] | | | | | | [place] [address] | | | | | | [phone] | | | | | | | [...] Left: | SYNOVIS - | | | [id number] | | 0.8x8cm - [id number]: | | Arm | SYNO | | [...] | | | COVIDIEN | | | [id number] | | | | | -MATT 867 - | | | 3404 / | | | | | COVI | | | | | | | | | | | /[id number] | | | | | | | [...] R?MRN: | | | | | | [id number] | | | [id number] | | | riteri | | | [...] | | | St. | | | [place] | | | y | | | [...] | | | St. | | | [place] | | | y | | | [...] | | | St. | | | [place] | | | y | | | [...] | | | St | | | [place] | | | y | | | [...] St | | | | | | [place] | | | y | | | [...] | | | St. | | | [place] | | | y | | | [...] | | | St. | | | [place] | | | y H. | | [...] | | | St. | | | [place] | | | y H. | | [...] | | | St. | | | [place] | | | y H. | | [...] | | | St. | | | [place] | | | y H. | | [...] | | | St. | | | [place] | | | y H. | | [...] | | | St. | | | [place] | | | y H. | | [...] | | | MD | | | Rattle Leak And Squeak Repairer | | | al | | [...] | | | [id number] | | | [id number] | | | eb | | | [...] R?MRN: | | | | | | [id number] | | | [id number] | | | riteri | | | [...] | | | St. | | | [place] | | | y | | | [...] | | | St. | | | [place] | | | y | | | [...] | | | St. | | | [place] | | | y | | | [...] | | | St | | | [place] | | | y | | | [...] St | | | | | | [place] | | | y | | | [...] | | | St. | | | [place] | | | y | | | [...] | | | St. | | | [place] | | | y H. | | [...] | | | St. | | | [place] | | | y H. | | [...] | | | St. | | | [place] | | | y H. | | [...] | | | St. | | | [place] | | | y H. | | [...] | | | St. | | | [place] | | | y H. | | [...] | | | St. | | | [place] | | | y H. | | [...] | | | St. | | | [place] | | | y H. | | [...] | | | MD | | | Rattle Leak And Squeak Repairer | | | al | | [...] | | | [id number] | | | [id number] | | | [id number] | | | [...] | | | | | [place] [address] | | | | + + + + + + + + | Specimen | + + | | + + + + + + + | Performing | Address | City/State/Zipcode | Phone Number | | Organization | | | | + + + + + | [facility] | [address] | [place] [address] | [phone] | + + + + + Magnesium [...] 1.7 - 2.4 mg/dL | [facility] | | | | performed at [facility] [address], [address] | | LABORATORY | | | | [address], | | | | | | [place] [address] | | | | + + + + + + + + | Specimen | + + | | + + + + + + + | Performing | Address | City/State/Zipcode | Phone Number | | Organization | | | | + + + + + | [facility] | [address] | [place] [address] | [phone] | + + + + + Renal [...] 12 (L)Comment: GFR <60: | >60 | [facility] | | | GFR | CHRONIC [...] [place], | | | | | | [place] [address] | | | | + + + + + + + + | Specimen | + + | Blood | + + + + + + + | Performing | Address | City/State/Zipcode | Phone Number | | Organization | | | | + + + + + | [facility] | [address] | [place] [address] | [phone] | + + + + + Iron [...] Testing | 15 - 50 % | [facility] | | | Saturation | performed at [facility], [address] | | LABORATORY | | | | [address], | | | | | | [place] [address] | | | | + + + + + + + + | Specimen | + + | Blood | + + + + + + + | Performing | Address | City/State/Zipcode | Phone Number | | Organization | | | | + + + + + | [facility] | [address] | [place] [address] | [phone] | + + + + + Troponin [...] | 0.00 - 0.04 | [facility] | | | | ng/mL or [...] [address] | | | | | | [address] [address] | | | | + + + + + + + + | Specimen | + + | Blood | + + + + + + + | Performing | Address | City/State/Zipcode | Phone Number | | Organization | | | | + + + + + | [facility] | [address] | [place] [address] | [phone] | + + + + + CBC [...] W | | | | | | [address], | | | | | | [place] [address] | | | | | |Testing performed at [facility] [address], [address] [facility], [place] [address] | | | | | | | | | | + + +---- + + + + + | Specimen | + + | Blood | + + + + + + + | Performing | Address | City/State/Zipcode | Phone Number | | Organization | | | | + + + + + | [facility] | [address] | [place] [address] | [phone] | + + + + + Phosphorus [...] 2.3 - 4.8 mg/dL | [facility] | | | | performed at [facility], [address] | | LABORATORY | | | | [address], | | | | | | [place] [address] | | | | + + + + + + + + | Specimen | + + | Blood | + + + + + + + | Performing | Address | City/State/Zipcode | Phone Number | | Organization | | | | + + + + + | [facility] | [address] | [place] [address] | [phone] | + + + + + Ferritin [...] | LABORATORY | | | | [address], | | | | | | [place] [address] | | | | + + + + + + + + | Specimen | + + | Blood | + + + + + + + | Performing | Address | City/State/Zipcode | Phone Number | | Organization | | | | + + + + + | [facility] | [address] | [place] [address] | [phone] | + + + + + Creatine Kinase, Isoenzymes (01/24/2019 5:53 AM PST) + + + + + + | Component | Value | Ref Range | Performed | Pathologist | | | | | At | Signature | + + + + + + | CK-MM | 100Comment: Testing | 97 - 100 % | [facility] | | | | performed by [facility], | | LABORATORY | | | | [address], | | | | | | [place] [address] | | | | + + + + + + | CK-MB | 0Comment: Testing | 0 - 3 % | [facility] | | | | performed by [facility], | | LABORATORY | | | | [address], | | | | | | [facility] [address] | | | | + + + + + + | CK-BB | 0Comment: Testing | 0 % | [facility] | | | | performed by [facility], | | LABORATORY | | | | [address] [facility], | | | | | | [facility] [address] | | | | + + + + + + | CK, Total | 156Comment: Testing | 24 - 173 U/L | [facility] | | | | performed at [facility], | | LABORATORY | | | | [address], | | | | | | [place] [address] | | | | + + + + + + | CK-MACRO | 0 | Not Observed % | [facility] | | | TYPE 1 | | | LABORATORY | | + + + + + + | CK-MACRO | 0Comment: Testing | Not Observed % | [facility] | | | TYPE II | performed by [facility], | | LABORATORY | | | | [address], | | | | | | [place] [address] | | | | + + + + + + + + | Specimen | + + | Blood | + + + + + + + | Performing | Address | City/State/Zipcode | Phone Number | | Organization | | | | + + + + + | [facility] | [address] | [place] [address] | [phone] | + + + + + Basic [...] [place], | | | | | | [place] [address] | | | | + + + + + + + + | Specimen | + + | Blood | + + + + + + + | Performing | Address | City/State/Zipcode | Phone Number | | Organization | | | | + + + + + | [facility] | [address] | [place] [address] | [phone] | + + + + + XR [...] CHEST AP PORTABLE (01/07/2019); CHEST TWO VIEWS 38526 (01/06/2019); | | | FINDINGS: Mild cardiomegaly. [...] PORTABLE (01/07/2019); CHEST | | TWO VIEWS 56564 (01/06/2019); | | | | FINDINGS: | [...] LABORATORY | | | | [facility];[address] | [address];[place] [address] | | | | + + + + + + + + | Specimen | + + | Blood | + + + + + + + | Performing | Address | City/State/Zipcode | Phone Number | | Organization | | | | + + + + + | [facility] | [address] | [place] [address] | [phone] | + + + + + Comprehensive [...] [place];[address] | | | | | | [address] [facility];[place], [place] | | | | | | [address] | | | | + + + + + + + + | Specimen | + + | Blood | + + + + + + + | Performing | Address | City/State/Zipcode | Phone Number | | Organization | | | | + + + + + | [facility] | [address] [facility] | [place] [address] | [phone] | + + + + + XR [...] underlying | | | lung. Signed by: Eliaz Marinelli, Pushpender Sign Date/Time: | | | [...] (01/07/2019); CHEST TWO | | | VIEWS 17152 (01/06/2019); XR CHEST AP PORTABLE (12/13/2018); | [...] CHEST AP PORTABLE (01/07/2019); CHEST TWO VIEWS 98122 (01/06/2019); XR | | CHEST AP PORTABLE [...] | | | | | ONLY, -COMPUTER (122), | | | | | | department [...] correct | | | patient, procedure, equipment, child support case officer and site/side marked as | | [...] space: 6th Puncture method: | | | jihh-jny-zugbxl catheter Number of attempts: 1 Drainage amount: [...] | 65 - 99 mg/dL | [facility] | | | POC | performed at [facility];[address] | | LABORATORY | | | | [address] [facility];[place], [place] | | | | | | [address] | | | | + + + + + + + + | Specimen | + + | | + + + + + + + | Performing | Address | City/State/Zipcode | Phone Number | | Organization | | | | + + + + + | [facility] | [address] | [place] [address] | [phone] | + + + + + XR [...] | | PORTABLE (01/07/2019); CHEST TWO VIEWS 12956 (01/06/2019); XR CHEST AP | | | [...] PORTABLE (01/07/2019); | | CHEST TWO VIEWS 11176 (01/06/2019); XR CHEST AP PORTABLE (12/13/2018); | [...] adenopathy. Upper Abdomen: The | | | [place] kidneys are atrophic. There is a small [...] No adenopathy. | | Upper Abdomen: The [place] kidneys are atrophic. There is a small [...] [place] | | | | | | [address] | | | | + + + + + + + + | Specimen | + + | Blood | + + + + + + + | Performing | Address | City/State/Zipcode | Phone Number | | Organization | | | | + + + + + | [facility] | [address] | [place] [address] | [phone] | + + + + + Thoracentesis [...] space: 6th Puncture method: | | | ayxv-zuc-bdpdex catheter Needle size: 18 Catheter size: 18 [...] | Billie Gupta MD 12/14/2018 9:54 [facility] | | | [facility] Hemo-Dialysis Procedure note Pt is [...] QB 450 AP | | | -200 Biochemical Engineer 170 Constitutional: pt appears without distress. on [...] | Testing performed at | | [facility] | | | Requests | [facility];[address] | | LABORATORY | | | | [place] [address] | | | | + + + + + + | RESULT | NO GROWTH 6 DAYS | | [facility] | | | | | | LABORATORY | | + + + + + + | RESULT | Testing performed at | | [facility] | | | | [facility], [address] [facility] | | LABORATORY | | | | [place] | | | | | | [address]Qylpakr: Testing | | | | | | performed at [facility], [address] | | | | | | [place] | | | | | | [address] | | | | + + + + + + + + | Specimen | + + | Blood - Peripheral | | blood specimen | | (specimen) | + + + + + + + | Performing | Address | City/State/Zipcode | Phone Number | | Organization | | | | + + + + + | [facility] | [address] | [place] [address] | [phone] | + + + + + C-Reactive [...] | | | | | [place] [address] | | | | + + + + + + + + | Specimen | + + | Blood | + + + + + + + | Performing | Address | City/State/Zipcode | Phone Number | | Organization | | | | + + + + + | [facility] | [address] | [place] [address] | [phone] | + + + + + Influenza [...] | performed at [facility];[place] | | | | | | [address];[place], [place] | | | | | | [address] | | | | + + + + + + + + | Specimen | + + | | + + + + + + + | Performing | Address | City/State/Zipcode | Phone Number | | Organization | | | | + + + + + | [facility] | [address] | [place] [address] | [phone] | + + + + + FLU SWAB COLLECTION (12/11/2018 3:46 PM PDT) + + + + + + | Component | Value | Ref Range | Performed | Pathologist | | | | | At | Signature | + + + + + + | Collection | SPECIMEN RECEIVED IN | | [facility] | | | | LABComment: Testing | | LABORATORY | | | | performed at [facility];[address] | | | | | | [address];[place] | | | | | | [address] | | | | + + + + + + + + | Specimen | + + | Tissue - Entire | | nasopharynx (body | | structure) | + + + + + + + | Performing | Address | City/State/Zipcode | Phone Number | | Organization | | | | + + + + + | [facility] | [address] | [place] [address] | [phone] | + + + + + PTT [...] [facility];[address] | | LABORATORY | | | | [address], [place] | | | | | | [address] | | | | + + + + + + + + | Specimen | + + | Blood | + + + + + + + | Performing | Address | City/State/Zipcode | Phone Number | | Organization | | | | + + + + + | [facility] | [address] | [place] [address] | [phone] | + + + + + CT [...] LABORATORY | | | | performed at [facility];[address] | | | | | | [address];[place] | | | | | | [address] | | | | + + + + + + + + | Specimen | + + | | + + + + + + + | Performing | Address | City/State/Zipcode | Phone Number | | Organization | | | | + + + + + | [facility] | [address] | [place] [address] | [phone] | + + + + + Lactic [...] | | | Serum | performed at [facility];[address] | mmol/L | LABORATORY | | | | [address];[place], [place] | | | | | | [address] | | | | + + + + + + + + | Specimen | + + | Blood | + + + + + + + | Performing | Address | City/State/Zipcode | Phone Number | | Organization | | | | + + + + + | [facility] | [address] | [place] [address] | [phone] | + + + + + Protime [...] | performed at [facility] | | | | | | [address] [facility];[place], [place] | | | | | | [address] | | | | + + + + + + + + | Specimen | + + | Blood | + + + + + + + | Performing | Address | City/State/Zipcode | Phone Number | | Organization | | | | + + + + + | [facility] | [address] | [place] [address] | [phone] | + + + + + from [...] +--------+ +---------+--------+ | MEDICARE | MEDICA | [id number] | 05/05/19 | [phone] | | Medica | | | RE | | 13-Pre | 5 | | re | | | PART A | | sent | | | | | | AND B | | | | | | + +--------+ +--------+ +---------+--------+ | MEDICARE | MEDICA | [id number] | 05/05/19 | [phone] | | Medica | | | RE | | 13-Pre | 5 | | re | | | PART A | | sent | | | | | | AND B | | | | | | + +--------+ +--------+ +---------+--------+ | [employer]AN | MODA | [id number] | | [phone] | | Medica | | MEDICAID HMO | HEALTH | | 019-Pr | 1 | | id | | | MDCD | | esent | | | | | | HMO [place] | | | | | | + +--------+ +--------+ +---------+--------+ | [employer] | MODA | [id number] | | [phone] | | Medica | | MEDICAID HMO [...] [place] | | | 2 (Home) | [address] | + +--------+ +--------+ + + | Dara Weldon | Person | Self [birth year] | [address] | | | al/Fam | | 1994 | [phone] | [address] [place] | | | [place] | | | 2 (Home) | [address] | + +--------+ +--------+ + + | Cory Weldon | Person | Father [birth year] | [address] | | | al/Fam | | 1971 | [phone] | [place] [address] | | | [place] | | | 9 (Home) | | + +--------+ +--------+ + + Advance Directives + + + + + | Type | Date Recorded | Patient | Explanation | | | | Airport Tower Controller | | + + + + + [...]
--- OUTSIDE RECORDS SUMMARY | ~2019-02-17 | XMS | Encounter Summary ---
[...] | | | | | [place] [address] | | + + + + + | Thania Mallory | ECON | [address] | | | | | [place] [address] | | + + + + + | Deidra Weldon | ECON | [address] | | | | | [place] | | | | | [address] | | + + + + + Care Team Providers + +------+ + | Care Sales Forecast Analyst Name | Role | Phone | [...] | | | | | ANNALISA Hoffmann [facility] | [facility] | | | | | [address] [place], [place] | [place], [place] | | | | | [address] | [address] | | | | | [phone] | | | +--------+ + + + [...] Denise | | | | | | [place] | | | | | | [address] | | | | | | [phone] | | | | | | | | +--------+ + + + + documented as of this encounter Visit Diagnoses Not on filedocumented in this encounter"
--- OUTSIDE RECORDS SUMMARY | ~2019-02-17 | XMS | Encounter Summary ---
Demographics + + + | Address | [address] | | | [place] [address] | + + + | Home Phone [...] | | | | | [place] [address] | | + + + + + | Thania Mallory | ECON | [address] | | | | | [place] [address] | | + + + + + | Deidra Weldon | ECON | [address] | | | | | [place] | | | | | [address] | | + + + + + Care Team Providers + +------+ + | Care Tumor Registrar Name | Role | Phone | [...] [address] [facility] | f/u appt on | | | | [place] | [address] | 03/16/12 to [place]) | | | | [facility] | [facility] [place] | | | | | [address] | [address] | | | | | Mailcode: DCAnna | [phone] | | | | | [place] | | | | | | [place], [place] | | | | | | [address] | | | | | | [phone] | | | +--------+ + + + [...] [place] | | | | | | [address] | | | | | | [phone] | | | | | | | | +--------+ + + + + documented as of this encounter Visit Diagnoses Not on filedocumented in this encounter"
--- OUTSIDE RECORDS SUMMARY | ~2019-02-17 | XMS | Encounter Summary ---
Demographics + + + | Address | [address] | | | [place] [address] | + + + | Home Phone [...] | Author | [facility] | | | and [place] | + + + | Organization | [facility] | [...] Providers + +------+ + | Care Community Services Coordinator Name | Role | Phone [...] + + | 11/15/ | Telephone | [facility] | George Torres RN | Medication Problem | | 2019 | | [address] | | (CMN O[address]) | | | | [place] | | | | | | [address] | | | | | | [phone] | | | +--------+ + + + [...] [address] | | | | | | [place] [address] | | | | | | [phone] | | | | | | | | +--------+---------+ + + + documented as of this encounter Visit Diagnoses Not on filedocumented in this encounter"
--- OUTSIDE RECORDS SUMMARY | ~2019-02-17 | XMS | Encounter Summary ---
Demographics + + + | Address | [address] | | | [place] [address] | + + + | Home Phone [...] Author | [facility] | | | and Josephana | + + + | Organization | [facility] [...] Team Providers + +------+ + | Care Icing Maker Name | Role | Phone | + +------+ + | Tien Nicholson MD | PCP | | + +------+ + Encounter Details +--------+ + + + + | Date | Type | Department | Care Team | Description | +--------+ + + + + | 10/17/ | Hospital | [facility] | Nikita, | SOB (shortness of | | 2019 - | Encounter | [facility] | MD Na[address] | breath); Pleural | | | | CARE FLOOR [address] | effusion on right; | | 10/20/ | | [address] | [place] [address] | ESRD needing | | 2019 | | [place], [place] | [phone] | dialysis ([facility]); End | | | | [address] | | stage renal disease | | | | [phone] | | (HCC) | +--------+ + + [...] + + +---------+ + + | B Kcesxsk-T-Zfciw | Take 1 tablet by | | [...] 10/19/182357 Date of Service: 10/19/182357 Status: Signed Straddle Bug: Vira Ford RN (Registered Nurse) No acute [...] 10/19/181827 Date of Service: 10/19/181826 Status: Signed Straddle Bug: Trent Jovel RN (Registered Nurse) Dialysis completed today 2.4L removed. Remains on fluid restriction. Medicated for pain x 2. End of shift review complete. Trent Jovel RN onver arturo Transaction, Provider Unknown - 10/19/2018 3:36 PM PDT Case Management by DORON Diallo at 10/19/18 1536 Author: DORON Diallo Service: (none) Author Type: Tariff Compiling Clerk Filed: 10/19/18 1537 Date of Service: 10/19/18 1536 Status: Signed Straddle Bug: DORON Diallo (Tariff Compiling Clerk) Discharge planning: Return home when medically ready for discharge. Pt is receiving dialysi s on MWF. Pt is currently on 4L O2, pt may need a home O2 evaluation at discharge. Antonio Carrasco MD - 10/19/2018 12:14 PM PDTFormatting of this note might be different from the orig inal. Progress Notes by Antonio Pabon MD at 10/19/18 6584 Author: Antonio Pabon MD Service: Nephrology Author Type: Physician Filed: 10/25/18 0415 Date of Service: 10/19/18 1214 Status: Addendum Straddle Bug: Antonio Pabon MD (Physician) Related Notes: Original Note by Antonio Pabon MD (Physician) filed at 10/25/18 9468 [facility] Service: NEPHROLOGY Progress Note Dara Weldon 23 y.o. [id number] female TIEN NICHOLSON 23-year-old female with [...] REPAIR/REVISION; Surgeon: Rik Simon MD; Location: [facility] IN OR; Service: Vascular; Laterality: Left; DECLOT GRAFT Left 03/07/2014 Procedure: GRAFT - DECLOT; Surgeon: Rik Simon MD; Location: [facility] MAIN OR; Service: Vas cular; Laterality: [...] - SUPERFICIALIZATION; Surgeon: Rik Simon MD; Location: [facility] MAIN OR; Service: Vascular; Laterality: Left; [...] file Social History Narrative She lives in [facility]. She does not work. She [...] oriented x3, mood and affect looks ok MARISLE AVF +ve thrill/ bruit LABS: No results [...] ral space is punctured with an 5 Cook Islander MicroEval centesis catheter. Fluid is aspirated without complication. [...] 1 VIEW (10/17/2018); CHEST TWO V IEWS 09280 (10/17/2018); FINDINGS: Compared to the prior examination [...] MR, severe TR.severe pulmonary hypertens ion Chest b-gss-zvtszatbpllh with pulmonary edema and large right pleural [...] ALL QUESTIONS IN DETAIL, VERBALIZ ES UNDERSTANDING ATNONIO PABON MD 10/19/18 TIEN NICHOLSON Seen earlier and charting completed later Dictation software, Ganji, used which may contain error for similar sounding words even af ter review. Personal communication requested for any clarification. inGerber pastrana MD - 10/19/2018 7:48 AM PDT Progress Notes by Gerber Pearson MD at 10/19/18 0748 Author: Gerber Pearson MD Service: Hospitalist Author Type: Physician Filed: 10/19/18 0753 Date of Service: 10/19/1848 Status: Signed Straddle Bug: Gerber Pearson MD (Physician) [facility] Service: Hospitalist Progress Note Hospital Day: [...] [facility] in [place] on [facility]/21 where she underwent right th [...] BUN 90 on admission -History of a [place] Schnlein purpura -Last hemodialysis approximately 2 weeks [...] 10/19/18733 Date of Service: 10/19/18733 Status: Signed Straddle Bug: Vira Ford RN (Registered Nurse) No acute changes from shift assessment. VSS. Pt medicated for pain as requested and availab le. End of shift review and 24 hour chart check complete. onver arturo Transaction, Provider Unknown - 10/18/2018 5:01 PM PDT Case Management by DORON Diallo at 10/18/181700 Author: DORON Diallo Service: (none) Author Type: Tariff Compiling Clerk Filed: 10/18/181706 Date of Service: 10/18/181700 Status: Signed Straddle Bug: DORON Diallo (Tariff Compiling Clerk) Discharge planning: Return home when medically ready for discharge. Gerber Fernandez MD - 10/18/2018 7:46 AM PDT Progress Notes by Gerber Pearson MD at 10/18/18745 Author: Gerber Pearson MD Service: Hospitalist Author Type: Physician Filed: 10/18/18 0751 Date of Service: 10/18/18745 Status: Signed Straddle Bug: Gerber Pearson MD (Physician) [facility] Service: Hospitalist Progress Note Hospital Day: [...] [facility] in [place] on 08/21 where she underwent right th [...] BUN 90 on admission -History of a [place] Schnlein purpura -Last hemodialysis approximately 2 weeks [...] 10/25/182002 Date of Service: 10/18/18744 Status: Signed Straddle Bug: Antonio Pabon MD (Physician) [facility] Service: NEPHROLOGY Progress Note Dara Weldon 23 y.o. [id number] female [facility] Day: LOS: 1 day [...] AV FISTULA; Surgeon: Rik Simon MD; Location: [facility] MAIN OR; Service: Vascula r; Laterality: Left; cephalic AV FISTULA REPAIR Left 03/07/2014 Procedure: AV FISTULA - GRAFT REPAIR/REVISION; Surgeon: Rik Simon MD; Location: [facility] IN OR; Service: Vascular; Laterality: Left; DECLOT GRAFT Left 03/07/2014 Procedure: GRAFT - DECLOT; Surgeon: Rik Simon MD; Location: [facility] OR; Service: Vas cular; Laterality: Left; DIALYSIS FISTULA CREATION N/A 04/08/2014 Procedure: DIALYSIS CATHETER - INSERTION; Surgeon: Rik Simon MD; Location: [facility] MAIN OR ; Service: Vascular; Laterality: N/A; tunneled catheter LAPAROSCOPIC PERITONEAL DIALYSIS CATHETER INSERTION x2 LAPAROSCOPIC PERITONEAL DIALYSIS CATHETER INSERTION Right 07/2013 current dialysis access MWF dialysis RENAL BIOPSY Left 2003 SUPERFICIALIZATION OF AV FISTULA Left 06/24/2014 Procedure: AV FISTULA - SUPERFICIALIZATION; Surgeon: Rik Simon MD; Location: [facility] MA[facility] OR; Service: Vascular; Laterality: Left; [...] file Social History Narrative She lives in [facility]. She does not work. She [...] QTC Calculation (Bezet) 469 ms Calculated P Everett 46 degrees Calculated R Everett 127 degrees Calculated T Everett 94 degrees Diagnosis Normal sinus rhythm Right [...] MR, severe TR.severe pulmonary hypertens ion Chest d-eca-ycxnaxndnzns with pulmonary edema and large right pleural [...] earlier and charting completed later Dictation software, Ganji, used which may contain error for similar [...] 10/18/1853 Date of Service: 10/18/18650 Status: Signed Straddle Bug: Ronnie Vargas RN (Registered Nurse) Pt alert and oriented X 4. PRN pain med given for back pain. No other acute changes durin g shift. Chart check complete onver arturo Transaction, Provider Unknown - 10/17/2018 9:48 AM PDT Case Management by DORON Diallo at 10/17/18 0948 Author: DORON Diallo Service: (none) Author Type: Tariff Compiling Clerk Filed: 10/17/1854 Date of Service: 10/17/18947 Status: Signed Straddle Bug: DORON Diallo (Tariff Compiling Clerk) 10/17/18 09 Discharge Planning Evaluation Admitting Diagnosis (SOB) Readmission Other (comment) (Last admit 08/20/18) Living Arrangements Alone Support Systems Family members;Friends/neighbors Type of Residence Private residence House type Apartment Independent with ADL's Yes Independent with Mobility Yes Home Care Services No Caregiver after Discharge No Mental Status Oriented Prior functional status (Independent) Power of Staff Software Engineer No Resources Financial concerns No Transportation issues No Patient/Family concerns No Prescription Plan Yes Name of Pharmacy ([facility] in [place]) Previous home health equipment No Anticipated Disposition Facility Type Home DORON CM met with pt and discussed discharge planning. Pt is a 23 y.o., female admitted for s hortness of breath. Pt resides alone in an apartment at [address], [address], [place] [address]. Pt reported that she has neighbor and friend support. Pt's mother, Thania cheung can be reached at and sister, Saundra can be reached at . Pt reported being independent with ADL's,, IADL's and mobility prior to this admission. Pt denied previous outpatient OT/PT services, home care services and home O2 prior to this admission. Pt reported that she received dialysis from [facility] [place] on MWF prior to this admission . [...] 10/17/18743 Date of Service: 10/17/18743 Status: Signed Straddle Bug: Camilla Moody RPH (Pharmacist) Clinical Pharmacy Note: [...] 0747 Date of Service: 10/17/18716 Status: Signed Straddle Bug: Gerber Pearson MD (Physician) [facility] Service: Hospitalist Progress Note Hospital Day: [...] at [facility] at [facility] in [place] on 08/21 where she underwent right th [...] the case over the phone with patient's salesperson flowers Dr. Mahmood, recommends medi oly management and [...] creatinine 14, BUN 90 -History of a [place] Schnlein purpura -Last hemodialysis approximately 2 weeks [...] [address] | | | | | | [place] [address] | | | | | | [phone] | | | | | | | [...] | | | | | performed at [facility], [address] | | | | | | [facility], | | | | | | [place] [address] | | | | + + + [...] CHEST 1 VIEW (10/17/2018); CHEST TWO VIEWS 54096 | | | (10/17/2018); FINDINGS: Compared to [...] VIEW | | (10/17/2018); CHEST TWO VIEWS 25697 (10/17/2018); | | FINDINGS: | | Compared [...] pleural space is punctured with an 5 Cook Islander Mr. Youthesis catheter. | | | Fluid is aspirated [...] pleural space is punctured with an 5 Cook Islander Yueh | | SourceDNAesis catheter. Fluid is aspirated without complication. The [...] | | | | | | at [facility], [address] | | | | | | [facility], | | | | | | [place] [address] | | | | | |Testing performed at [facility], [address] [place] [address] | | | | | | | [...] EXTERNAL | | | | performed at [facility], [address] | | LAB | | | | Opal Oropeza, | | | | | | [place] [address] | | | | + + + [...] | | | | | performed at [facility], [address] | | | | | | [facility], | | | | | | [place] [address] | | | | + + + [...] | | | [facility];[address] [place] [address] | | | | | | [facility];[place] [address] | | | | + + + [...] | LAB | | | | Nica Oropeza;[place], [place] | | | | | | [address] | | | | + + + [...] | | | [facility];[address] [place] [address] | | | | | | [facility];[place] [address] | | | | + + + [...] | | LAB | | | | [facility];[place], [place] | | | | | | [address] | | | | + + + [...] | | | | | | Nica Sandip;[place], [place] | | | | | | [address] | | | | + + + [...] | | | [facility];[address] [place] [address] | | | | | | Bl;[place] [address] | | | | + + + [...] | | [facility];[address] [facility] | | | | | | [facility];[place] [address] | | | | + + + [...] | | [facility];[address] [facility] | | | | | | Blvd;[place] [address] | | | | + + + [...]
--- OUTSIDE RECORDS SUMMARY | ~2019-02-17 | XMS | Encounter Summary ---
[...] | Author | [facility] [place] | | | and Josephana | + + + | Organization | [facility] [place] [...] NEPHROLOGY [address] | M, DO [address] | | | | | [address] | [address] | | | | | [place], [place] | [place], [place] | | | | | [address] | [address] | | | | | [phone] | | | +--------+ + + + [...] [facility], dos: 02/12/17. Sent to [facility].Electronically signed by Marilyn Palumbo at 017 8:58 [...] | | | | | | [place] [address] | | | | | | [phone] | | | | | | | | +--------+---------+ + + + documented as of this encounter Visit Diagnoses Not on filedocumented in this encounter"
--- OUTSIDE RECORDS SUMMARY | ~2019-02-17 | XMS | Encounter Summary ---
Demographics + + + | Address | [address] | | | [place] [address] | + + + | Home Phone [...] | | | | | [place] [address] | | + + + + + | Thania Mallory | ECON | [address] | | | | | [place] [address] | | + + + + + | Deidra Weldon | ECON | [address] | | | | | [place] | | | | | [address] | | + + + + + Care Team Providers + +------+ + | Care Appeals Officer Name | Role | Phone | + +------+ + | Shahid Camargo MD | PCP | | + +------+ + Encounter Details +--------+------+ + + + | Date | Type | Department | Care Team | Description | +--------+------+ + + + | 12/20/ | Lab | [facility] | | Allergic purpura- | | 2012 | | 7th Floor [address] | | MEDICARE [address] | | | | [address] [place], | | (Primary Dx) | | | | [place] [address] | | | | | | [phone] | | | +--------+------+ + + + [...] Denise | | | | | | [place], [place] | | | | | | [address] | | | | | | [phone] | | | | | | | [...] - | [address] | [place], [place] | | | IMMUNOGENETICS/TRANS | Suite [...] - | [address] | [place], [place] | | | IMMUNOGENETICS/TRANS | Suite [...] | [facility] - | [address] | [place] [address] | | | IMMUNOGENETICS/TRANS | [address] [...] [facility] - | [address] | [place] [address] | | | IMMUNOGENETICS/TRANS | [address] [...] [facility] - | [address] | [place] [address] | | | IMMUNOGENETICS/TRANS | [address] [...] - | [address] | [place], [place] | | | IMMUNOGENETICS/TRANS | Suite [...] - | [address] | [place], [place] | | | IMMUNOGENETICS/TRANS | [address] [...] [facility] - | [address] | [place] [address] | | | IMMUNOGENETICS/TRANS | Suite [...] + + | [facility] - | [address] | [place] [address] | | | IMMUNOGENETICS/TRANS | [address] [...] | + + + + + | [facility] | [address] | [place] [address] | | | SERVICES, | [address] [...] [facility] | [address] | [place] [address] | | | SERVICES, | [address] [...] | + + + + + | [facility] | [address] | [place] [address] | | | SERVICES, CORE | PARK [...] | | | | Pippa Sauceda, [facility] | | PTH - INTFC | | | | [address] | | | | | | [phone]. | | | | | | Faisal [...] [facility] | [address] | [place], [place] | | | UNIV PTH - INTFC | | [address] | | + + + + + [...] [facility] | [address] | [place] [address] | | | SERVICES, HOMERO | PARK [...] | + + + + + | [facility] | [address] | [place] [address] | | | SERVICES, CORE | LONG [...] + | [facility] - | [address] | [place] [address] | | | [place] | | | [...] [facility] | [address] | [place] [address] | | | SERVICES, CORE | PARK [...] [facility] | [address] | [place] [address] | | | SERVICES, CORE | PARK [...] | + + + + + | [facility] | [address] | [place] [address] | | | SERVICES, CORE | PARK [...] + | [facility] - | [address] | [place] [address] | | | [place] | | | [...] at: | | | | | | http://www.cdc.gov/nchstp/tb/pubs/tbfactssheets/224204.htm | | | Test performed by: [facility] [address] | [address] [place] [address] | | + + + + [...] [facility] | [address] | [place] [address] | | | SERVICES, SPECIAL | PARK [...] gene at | DIAGNOSTIC | | nucleotide 65995. Please note that this assay only detects the | LABORATORIES | | [id number] point mutation and therefore a normal result [...] has been analyzed for the presence of [id number] | | | mutation in the prothrombin [...] | | Heterozygotes for the common prothrombin U18946H mutation constitute | | | approximately 2% of the normal white population (1,2). | | | References: 1.) Poort et al. Blood 88, 8874-6087 (1996). 2.) Ricardo | | | et al. Circulation 99, 999-1004 (1998). 3.) Al Montalvo, and | | | Press. Amer J Clin Path 155, 439-47 (2000). This test was | | | developed and its performance characteristics determined by the [facility] | | | [facility]. It has [...] [facility] | | | Diagnostic Laboratories [facility] is a fully | | | licensed and/or accredited clinical laboratory under CLIA, CAP, and | | | the [facility]. Please note that our lab [...] + + | Performing | Address | City/State/[facility] Cent[facility]ode | Phone Number | | Organization | | | | + + + + + | [facility] | [address] | [place] [address] | | | DIAGNOSTIC | [address] [...] [facility] | [address] | [place] [address] | | | SERVICES, CORE | PARK [...] | + + + + + | [facility] | [address] | [place] [address] | | | SERVICES, CORE | LONG [...] [facility] | [address] | [place] [address] | | | SERVICES, CORE | PARK [...] HOSPITAL LABORATORY | [address] | [place] [address] | | | SERVICES, HOMERO | LONG [...] | | | | | | Laboratories,[address] | | | | | | Rajendra, [facility] [address] | | | | | | [phone]. | | | | | | Faisal [...] [facility] | [address] | [place], [place] | | | UNIV PTH - INTFC | | [address] | | + + + + + [...] HOSPITAL LAB[facility]ORY | [address] | [place] [address] | | | SERVICES, SPECIAL | PARK [...] C PCR, | Undetected | IU/mL | [facility] | | | QUANT | | | [...] + + + + | [facility] | [address], | [place] [address] | | | DIAGNOSTIC | [address] [...] + | [facility] - | [address] | [place] [address] | | | [place] | | | [...] + | [facility] - | [address] | [place] [address] | | | [place] | | | [...] + | [facility] - | [address] | [place] [address] | | | [place] | | | [...] + | [facility] - | [address] | [place] [address] | | | [facility] | | | | + + + [...] less......Not | | | | | | Lspscbqv75.0-21.9 | | | | | | U/mL.........Indetermina [...] available | | | | | | atwww.[employer]/eb | | | | | | vdx.Performed by [facility] | | | | | | Laboratories,[address] | | | | | | Rajendra [facility] [address] | | | | | | [phone]. | | | | | | Faisal [...] [facility] | [address] | [place], [place] | | | UNIV PTH - INTFC | | [address] | | + + + + [...] | | | Final CULTURE | | [facility] | | | | RESULT:No [...] + | [facility] - | [address] | [place] [address] | | | [place] | | | | + + + [...] HOSPITAL LABORATORY | [address] | [place] [address] | | | SERVICES, CORE | PARK [...] | | | | | | [employer],[address] | | | | | | Pippa Sauceda, [facility],[place] | | | | | | [address] | | | | | | [phone].[email or web address]. | | | | | | [facility], Faisal Caraballo, | | | [...] [facility] | [address] | [place], [place] | | | UNIV PTH - INTFC | | [address] | | + + + + + [...] [facility] | [address] | [place] [address] | | | SERVICES, CORE | PARK [...] | + + + + + | [facility] | [address] | [place] [address] | | | SERVICES, CORE | PARK [...] [facility] | [address] | [place] [address] | | | HOMERO [address] | [address] | | | + + + + + documented in this encounter Visit Diagnoses + + | Diagnosis | + + | 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
--- OUTSIDE RECORDS SUMMARY | ~2019-02-17 | XMS | Encounter Summary ---
Demographics + + + | Address | [address] | | | [place] [address] | + + + | Home Phone [...] | | | | | [place] [address] | | + + + + + | Thania Mallory | ECON | [address] | | | | | [place] [address] | | + + + + + | Deidra Weldon | ECON | [address] | | | | | [place] | | | | | [address] | | + + + + + Care Team Providers + +------+ + | Care Survey Research Center Director Name | Role | Phone [...] Rd | | | | | | [place], [place] | | | | | | [address] | | | +--------+ + + + [...] Denise | | | | | | [place], [place] | | | | | | [address] | | | | | | [phone] | | | | | | | | +--------+ + + + + documented as of this encounter Visit Diagnoses [facility]"
--- OUTSIDE RECORDS SUMMARY | ~2019-02-17 | XMS | Encounter Summary ---
Demographics + + + | Address | [address] | | | [place] [address] | + + + | Home Phone [...] | | | | | [place] [address] | | + + + + + | Thania Mallory | ECON | [address] | | | | | [place] [address] | | + + + + + | Deidra Weldon | ECON | [address] | | | | | [place] | | | | | [address] | | + + + + + Care Team Providers + +------+ + | Care Process Eng Name | Role | Phone | + [...] | ) | | | | [facility] | [facility] | | | | | Rd [place], [place] | [place], [place] | | | | | [address] | [address] | | | | | [phone] | | | +--------+ + + + [...] [place] | | | | | | [address] | | | | | | [phone] | | | | | | | | +--------+ + + + + documented as of this encounter Visit Diagnoses Not on filedocumented in this encounter"
--- OUTSIDE RECORDS SUMMARY | ~2019-02-17 | XMS | Encounter Summary ---
Demographics + + + | Address | [address] | | | [place] [address] | + + + | Home Phone [...] Author | [facility] | | | and Josephana | + + + | Organization | [facility] [...] Team Providers + +------+ + | Care Sunglass Clip Attacher Name | Role | Phone | + [...] | stage renal | [address] | [address] [place] [address] | | | | | disease) | Shun Griffin | Jac[place] Gotti | | | | | ([facility]) | [address] | [address] [place] | | | | | Anemia in | [place], [place] | [place] | | | | | ESRD | [address] | [address] Phone: | | | | | (end-stage | Phone: | [phone] | | | | | renal | [phone] | Fax: | | | | | disease) | Fax: | [phone] | | | | | ([facility]) | [phone] | | | | | | Procedures [...] Off-Site | [facility] [place] | Jorje Capm | ESRD (end stage | | 2016 | Visit | NEPHROLOGY [address] | M, DO [address] | renal disease) ([facility]) | | | | [address] | [place], [address] | (Primary Dx) | | | | [place], [place] | [place], [place] | | | | | [address] | [address] | | | | | [phone] | | | +--------+ + + + [...] Will recheck her in 2 weeks. : [place] Fina Joy M.D., Pediatric Nephrology, [facility] documented in th is encounter [...] [address] | | | | | | [place] [address] | | | | | | [phone] | | | | | | | | +--------+---------+ + + + documented as of this encounter Visit Diagnoses + + | Diagnosis | + + | ESRD (end stage renal disease) (HCC) - Primary End stage renal disease | + + documented in this encounter"
--- OUTSIDE RECORDS SUMMARY | ~2019-02-17 | XMS | Encounter Summary ---
Demographics + + + | Address | [address] | | | [place] [address] | + + + | Home Phone [...] | | | | | [place] [address] | | + + + + + | Thania Mallory | ECON | [address] | | | | | [place] [address] | | + + + + + | Deidra Weldon | ECON | [address] | | | | | [place] | | | | | [address] | | + + + + + [...] MD Emanuel [address] [facility] | | | | | Alexander | [facility] | | | | | [facility] | [place], [place] | | | | | [address] [facility] | [address] | | | | | Mailcode: DCH7 | [phone] | | | | | Alexander | | | | | | [place], [place] | | | | | | [address] | | | | | | [phone] | | | +--------+ + + + [...] Ave | | | | | | [place], [place] | | | | | | [address] | | | | | | [phone] | | | | | | | [...] | [address] | [place] [address] | [phone] | | HOSPITAL | | | | [...] [address] | [place] [address] | [phone] | | HOSPITAL | | | | [...] + + + + + | [facility] | [address] | [place] [address] | [phone] | | HOSPITAL | | | | [...] + + + + + | [facility] | [address] | [place] [address] | [phone] | | HOSPITAL | | | | [...] | [address] | [place] [address] | [phone] | | HOSPITAL | | | | [...] [address] | [place] [address] | [phone] | | HOSPITAL | | | | + + + + + documented in this encounter Visit Diagnoses Not on filedocumented in this encounter"
--- OUTSIDE RECORDS SUMMARY | ~2019-02-17 | XMS | Encounter Summary ---
Demographics + + + | Address | [address] | | | [place] [address] | + + + | Home Phone [...] Author | [facility] | | | and Josephana | + + + | Organization | [facility] | [...] Providers + +------+ + | Care Industrial Green Systems Designer Name | Role | Phone | [...] NEPHROLOGY [address] | MD [address] | intermittent, | | | | [address] | [address] [place] | uncomplicated | | | | [place], [place] | [place] [address] | (Primary Dx) | | | | [address] | [phone] | | | | | [phone] | | | +--------+ + + + [...] [place] | | | | | | [place] [address] | | | | | | [phone] | | | | | | | | +--------+---------+ + + + documented as of this encounter Visit Diagnoses + + | Diagnosis | + + | Asthma, mild intermittent, uncomplicated - Primary | + + documented in this encounter"
--- OUTSIDE RECORDS SUMMARY | ~2019-02-17 | XMS | Encounter Summary ---
Demographics + + + | Address | [address] | | | [place] [address] | + + + | Home Phone [...] | Author | [facility] | | | and Josephana | + + + | Organization | [facility] [...] Team Providers + +------+ + | Care Honest John Rocket Crew Member Name | Role | Phone | + +------+ + PCP | Unavailable | + +------+ + Encounter Details +--------+ + + + + | Date | Type | Department | Care Team | Description | +--------+ + + + + | 06/24/ | Hospital | [facility] | Rik Simon MD | | | 2015 | Encounter | [facility] | [address] | | | | | [address] | [place], [place] | | | | | [place] | [address] | | | | | [address] | [phone] | | | | | [phone] | | | +--------+ + + + [...] 06/24/141340 Date of Service: 06/24/141340 Status: Signed Recreation Director: Merlin Carter RPH (Pharmacist) Clinical Pharmacy Note: [...] 1.00 mg/dL Final Testing performed at [facility];[place] [address] CREATININE: 7.55 mg/dL ABNORMAL (06/24/14 1045) Estimated creatinine clearance - 14.7 mL/min Pharmacy dosing for renal function per Dr. Simon. Currently, there are no medications needing to be adjusted. Pharmacy will continue to monit or for changes in medication orders and in renal function and adjust accordingly. Merlin Carter [facility] 06/24/2014 1:41 PM docume nted in [...] | | | | | | [place] [address] | | | | | | [phone] | | | | | | | [...] LAB | | | | Blvd;[place] [address] | | | | + + + + + + | Antibody | NEGATIVE | | EXTERNAL | | | Screen | | | LAB | | + + + + + + | Antibody | Testing performed at | | EXTERNAL | | | Screen | [facility];[address] | | LAB | | | | Blvd;[place] [address] | | | | + + + + + + | BB BAND | [id number] | | EXTERNAL | | | | | | LAB | | + + + + + + | BB BAND | Testing performed at | | EXTERNAL | | | | [facility];[address] | | LAB | | | | Blvd;[place] [address] | | | | + + + [...] | | performed at [facility] | | | | | | [facility];[place], [place] | | | | | | [address] | | | | + + + [...] | | QUALITATIVE | performed at [facility] | | LAB | | | | [address];[place], [place] | | | | | | [address] | | | | + + + [...] | | performed at [facility];[address] | mmol/L | LAB | | | | [address];[place], [place] | | | | | | [address] | | | | + + + + + + | K | 4.3Comment: Testing | 3.5 - 4.9 | EXTERNAL | | | | performed at [facility];[address] | mmol/L | LAB | | | | [address];[place] | | | | | | [address] | | | | + + + + + + | Cl | 101Comment: Testing | 99 - 109 mmol/L | EXTERNAL | | | | performed at [facility];[address] | | LAB | | | | [address];[place] | | | | | | [address] | | | | + + + + + + | CO2 | 23Comment: Testing | 23 - 32 mmol/L | EXTERNAL | | | | performed at [facility];[address] | | LAB | | | | [address];[place] | | | | | | [address] | | | | + + + + + + | Anion Gap | 16Comment: Testing | 5 - 20 mmol/L | EXTERNAL | | | | performed at [facility];[address] | | LAB | | | | [address];[place] | | | | | | [address] | | | | + + + + + + | Glucose, | 84Comment: Testing | 65 - 99 mg/dL | EXTERNAL | | | Fasting | performed at [facility];[address] | | LAB | | | | [address];[place] | | | | | | [address] | | | | + + + + + + | BUN | 40 (H)Comment: Testing | 8 - 25 mg/dL | EXTERNAL | | | | performed at [facility];[address] | | LAB | | | | [address];[place] | | | | | | [address] | | | | + + + + + + | Creatinine | 7.55 (H)Comment: Testing | 0.50 - 1.00 | EXTERNAL | | | | performed at [facility];[address] | mg/dL | LAB | | | | [address];[place] | | | | | | [address] | | | | + + + + + + | BUN/Creatin | 5Comment: Testing | | EXTERNAL | | | ine Ratio | performed at [facility];[address] | | LAB | | | | [address];[place] | | | | | | [address] | | | | + + + + + + | Calcium | 9.8Comment: Testing | 8.5 - 10.5 | EXTERNAL | | | | performed at [facility];888 | mg/dL | LAB | [...] | | performed at [facility];[address] | | | | | | [address];[place] | | | | | | [address] | | | | + + + [...]
--- OUTSIDE RECORDS SUMMARY | ~2019-02-17 | XMS | Encounter Summary ---
Demographics + + + | Address | [address] | | | [place] [address] | + + + | Home Phone [...] + | Author | [facility] | | | and Josephana | + + + | Organization | [facility] | [...] Providers + +------+ + | Care Chain Carrier Name | Role | Phone | + +------+ + PCP | Unavailable | + +------+ + Encounter Details +--------+ + + + + | Date | Type | Department | Care Team | Description | +--------+ + + + + | 08/21/ | Hospital | [facility] | Conversion | End stage renal | | 2015 | Encounter | CENTER CV INTRA OP | Transaction, | disease (HCC); | | | | [address] | Provider Unknown | Mechanical | | | | [place], [place] | [phone] | complication of | | | | [address] | | other vascular | | | | [phone] | Darryn Whaley, | device, implant, and | | | | | [address] | graft (HCC) | | | | | [address]VE [place], [place] | | | | | | [address] | | | | | | | [...] E | | | | | | [place] [address] | | | | | | [phone] | | | | | | | [...] venous anastomosis without incidence. | | | [address], 479[address], [address]3612, [address] | | + + + + + [...] conscious sedation and | | | independent half-way supervision performed throughout the | | | [...] | | | needle and exchanged for 4-Luxembourger micropuncture sheath. Initial | | | fistula [...] | | needle and exchanged for 4 Luxembourger short sheath over 0.03, angled | | | Glidewire. Subsequently, Glidewire was exchanged for 0.014, mailman | | | wire over 4 Luxembourger angled glide catheter. Then, 4 mm x [...] adequate conscious sedation and independent | | half-way supervision performed throughout the procedure. PROCEDURE: Informed [...] micropuncture needle and exchanged | | for 4-Luxembourger micropuncture sheath. Initial fistula pressure was obtained [...] | micropuncture needle and exchanged for 4 Luxembourger short sheath over 0.03, angled | | Glidewire. Subsequently, Glidewire was exchanged for 0.014, mailman wire over 4 Luxembourger | | angled glide catheter. Then, 4 [...] arterial venous | | anastomosis without incidence. 50863, 64832, 09851, 54439 | | | | | |08318, 47616, 14756, 10187 | | | | | + + [...] venous anastomosis without incidence. | | | 67[address], 66473, 32342, 15042 | | + + + + + [...] conscious sedation and | | | independent half-way supervision performed throughout the | | | [...] | | | needle and exchanged for 4-Luxembourger micropuncture sheath. Initial | | | fistula [...] | | needle and exchanged for 4 Luxembourger short sheath over 0.03, angled | | | Glidewire. Subsequently, Glidewire was exchanged for 0.014, mailman | | | wire over 4 Luxembourger angled glide catheter. Then, 4 mm x [...] adequate conscious sedation and independent | | half-way supervision performed throughout the procedure. PROCEDURE: Informed [...] micropuncture needle and exchanged | | for 4-Luxembourger micropuncture sheath. Initial fistula pressure was obtained [...] | micropuncture needle and exchanged for 4 Luxembourger short sheath over 0.03, angled | | Glidewire. Subsequently, Glidewire was exchanged for 0.014, mailman wire over 4 Luxembourger | | angled glide catheter. Then, 4 [...] arterial venous | | anastomosis without incidence. 37382, 24333, 47489, 12611 | | | | | |92196, 21887, 02567, [address] | | | | | + + documented in this encounter Visit Diagnoses + + | Diagnosis | + + | End stage renal disease (HCC) End stage renal disease | + + | Mechanical complication of other vascular device, implant, and graft | + + documented in this encounter"
--- OUTSIDE RECORDS SUMMARY | ~2019-02-17 | XMS | Encounter Summary ---
Demographics + + + | Address | [address] | | | [place] [address] | + + + | Home Phone [...] | | | | | [place] [address] | | + + + + + | Thania Mallory | ECON | [address] | | | | | [place] [address] | | + + + + + | Deidra Weldon | ECON | [address] | | | | | [place] | | | | | [address] | | + + + + + Care Team Providers + +------+ + | Care Licensed Mental Health Professional Name | Role | Phone | [...] Shun | | | | | at [facility] | [facility] | | | | | [address] | [place] [address] | | | | | Loop Mailcode: | | | | | | [id number] [facility] | | | | | | [facility] | | | | | | [place], [place] | | | | | | [address] | | | | | | [phone] | | | +--------+ + + + [...] [place] | | | | | | [address] | | | | | | [phone] | | | | | | | [...] | e | 11:49 AM | MEDICARE 3098 | procedure are in the | | [...] view image for the detailed interpretation from shopp results. | CARDIOLOGY | + + + + + | Procedure Note | + + | Interface, Cardiology Results - 12/21/2012 9:38 AM PDT Please click on view image | | for the detailed interpretation from shopp results. 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
--- OUTSIDE RECORDS SUMMARY | ~2019-02-17 | XMS | Encounter Summary ---
Demographics + + + | Address | [address] | | | [place] [address] | + + + | Home Phone [...] | [facility] | | | and Josephana | + + + | Organization | [facility] [...] Team Providers + +------+ + | Care Perioperative Assistant Name | Role | Phone | [...] | NEPHROLOGY [address] | [address] | | | | | [address] | [address] [place] | | | | | [place], [place] | [place] [address] | | | | | [address] | [phone] | | | | | [phone] | | | +--------+ + + + [...] [address] | | | | | | [place] [address] | | | | | | [phone] | | | | | | | | +--------+---------+ + + + documented as of this encounter Visit Diagnoses Not on filedocumented in this encounter"
--- OUTSIDE RECORDS SUMMARY | ~2019-02-17 | XMS | Encounter Summary ---
Demographics + + + | Address | [address] | | | [place] [address] | + + + | Home Phone [...] | | | | | [place] [address] | | + + + + + | Thania Mallory | ECON | [address] | | | | | [place] [address] | | + + + + + | Deidra Weldon | ECON | [address] | | | | | [place] | | | | | [address] | | + + + + + Care Team Providers + +------+ + | Care Alternative Energy Engineer Name | Role | Phone | [...] Update | | | | ANNALISA [facility] | [facility] | | | | | Rd [place], [place] | [place], [place] | | | | | [address] | [address] | | | | | [phone] | | | +--------+ + + + [...] Denise | | | | | | [place], [place] | | | | | | [address] | | | | | | [phone] | | | | | | | | +--------+ + + + + documented as of this encounter Visit Diagnoses Not on filedocumented in this encounter"
--- OUTSIDE RECORDS SUMMARY | ~2019-02-17 | XMS | Encounter Summary ---
Demographics + + + | Address | [address] | | | [place] [address] | + + + | Home Phone [...] | | | | | [place] [address] | | + + + + + | Thania Mallory | ECON | [address] | | | | | [place] [address] | | + + + + + | Deidra Weldon | ECON | [address] | | | | | [place] | | | | | [address] | | + + + + + Care Team Providers + +------+ + | Care Photocopying Equipment Mechanic Name | Role | Phone [...] Center | | | | | [facility] | [place], [place] | | | | | [address] | [address] | | | | | Mailcode: DCH7 | [phone] | | | | | [place] | | | | | | [place], [place] | | | | | | [address] | | | | | | [phone] | | | +--------+ + + + [...] Ave | | | | | | [place], [place] | | | | | | [address] | | | | | | [phone] | | | | | | | [...]
--- OUTSIDE RECORDS SUMMARY | ~2019-02-17 | XMS | Encounter Summary ---
Demographics + + + | Address | [address] | | | [place] [address] | + + + | Home Phone [...] + | Author | [facility] | | | and Josephana | + + + | Organization | [facility] [...] Providers + +------+ + | Care Trade Union Secretary Name | Role | Phone | [...] | | [address] | [place] | | | | | [place], [place] | [place], [place] | | | | | [address] | [address] | | | | | [phone] | | | +--------+--------+ + + + [...] | | | | | [place] [address] | | | | | | [phone] | | | | | | | | +--------+---------+ + + + documented as of this encounter Visit Diagnoses Not on filedocumented in this encounter"
--- OUTSIDE RECORDS SUMMARY | ~2019-02-17 | XMS | Encounter Summary ---
Demographics + + + | Address | [address] | | | [place] [address] | + + + | Home Phone [...] | | | | | [place] [address] | | + + + + + | Thania Mallory | ECON | [address] | | | | | [place] [address] | | + + + + + | Deidra Weldon | ECON | [address] | | | | | [place] | | | | | [address] | | + + + + + Care Team Providers + +------+ + | Care Student Records Coordinator Name | Role | Phone | [...] Shun | | | | | [address] | [facility] | | | | | [place], [place] | [place] [address] | | | | | [address] | [phone] | | | | | | | [...] from patient and her family Pharmacy Preferences: [facility] [address] [place] [address] Updated Outpatient Medications: Current Medication List Name [...] questions regarding this information contact pharmacy, pager #[phone] Thank you, Juan David Batres Pager [phone] signed by Juan David Batres Pharm[facility]manuel at [...] | | | | | | [place] | | | | | | [address] | | | | | | [phone] | | | | | | | | +--------+ + + + + documented as of this encounter Visit Diagnoses Not on filedocumented in this encounter"
--- OUTSIDE RECORDS SUMMARY | ~2019-02-17 | XMS | Encounter Summary ---
Demographics + + + | Address | [address] | | | [place] [address] | + + + | Home Phone [...] | | | | | [place] [address] | | + + + + + | Thania Mallory | ECON | [address] | | | | | [place] [address] | | + + + + + | Deidra Weldon | ECON | [address] | | | | | [place] | | | | | [address] | | + + + + + Care Team Providers + +------+ + | Care Montessori Program Director Name | Role | Phone [...] | ANNALISA [facility] | [facility] | | | | | Rd [place], [place] | [place], [place] | | | | | [address] | [address] | | | | | [phone] | | | +--------+ + + + [...] Denise | | | | | | [place] | | | | | | [address] | | | | | | [phone] | | | | | | | | +--------+ + + + + documented as of this encounter Visit Diagnoses Not on filedocumented in this encounter"
--- OUTSIDE RECORDS SUMMARY | ~2019-02-17 | XMS | Encounter Summary ---
Demographics + + + | Address | [address] | | | [place] [address] | + + + | Home Phone [...] | Author | [facility] | | | and [place] | + + + | Organization | [facility] | | | [...] Team Providers + +------+ + | Care Paperboard Machine Operator Name | Role | Phone | + +------+ + PCP | Unavailable | + +------+ + Encounter Details +--------+ + + + + | Date | Type | Department | Care Team | Description | +--------+ + + + + | 05/29/ | Hospital | [facility] | Conversion | End stage renal | | 2014 | Encounter | CENTER CV INTRA OP | Transaction, | disease (HCC) | | | | [address] | Provider Unknown | | | | | [place], [place] | [phone] | | | | | [address] | | | | | | [phone] | Natashakirit Darryn, | | | | | | MD [address] | | | | | | [place], [place] | | | | | | [address] | | | | | | | [...] [place] | | | | | | [place] [address] | | | | | | [phone] | | | | | | | [...] EXTERNAL LAB | | Testing performed at [facility];[address] [place] [address];[place] [address] MRSA PCR | | | NEGATIVE Testing performed at | | | [address];[place] [address] | | + + + + +---------+ [...]
--- OUTSIDE RECORDS SUMMARY | ~2019-02-17 | XMS | Encounter Summary ---
Demographics + + + | Address | [address] | | | [place] [address] | + + + | Home Phone [...] | | | | | [place] [address] | | + + + + + | Thania Mallory | ECON | [address] | | | | | [place] [address] | | + + + + + | Deidra Weldon | ECON | [address] | | | | | [place] | | | | | [address] | | + + + + + Care Team Providers + +------+ + | Care Coke Inspector Name | Role | Phone | [...] | Update | | | | ANNALISA [facility] | [facility] | | | | | Rd [place], [place] | [place], [place] | | | | | [address] | [address] | | | | | [phone] | | | +--------+ + + + [...] Denise | | | | | | [place], [place] | | | | | | [address] | | | | | | [phone] | | | | | | | | +--------+ + + + + documented as of this encounter Visit Diagnoses + + | Diagnosis | + + | 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
--- OUTSIDE RECORDS SUMMARY | ~2019-02-17 | XMS | Encounter Summary ---
Demographics + + + | Address | [address] | | | [place] [address] | + + + | Home Phone [...] | | | | | [place] [address] | | + + + + + | Thania Mallory | ECON | [address] | | | | | [place] [address] | | + + + + + | Deidra Weldon | ECON | [address] | | | | | [place] | | | | | [address] | | + + + + + Care Team Providers + +------+ + | Care Apprentice Plumber Name | Role | Phone | + [...] | | | [place] | [facility] | | | | | [facility] | [place], [place] | | | | | [address] [facility] [facility] | [address] | | | | | Mailcode: DCH7 | [phone] | | | | | Alexander | | | | | | [place], [place] | | | | | | [address] | | | | | | [phone] | | | +--------+ + + + [...] Ave | | | | | | [place], [place] | | | | | | [address] | | | | | | [phone] | | | | | | | [...] | [address] | [place] [address] | [phone] | | HOSPITAL | | | | [...] [address] | [place] [address] | [phone] | | HOSPITAL | | | | [...] + + + + + | [facility] | [address] | [place] [address] | [phone] | | HOSPITAL | | | | [...] + + + + + | [facility] | [address] | [place] [address] | [phone] | | HOSPITAL | | | | [...] | [address] | [place] [address] | [phone] | | HOSPITAL | | | | [...] [address] | [place] [address] | [phone] | | HOSPITAL | | | | + + + + + documented in this encounter Visit Diagnoses Not on filedocumented in this encounter"
--- OUTSIDE RECORDS SUMMARY | ~2019-02-17 | XMS | Encounter Summary ---
Demographics + + + | Address | [address] | | | [place] [address] | + + + | Home Phone [...] | | | | | [place] [address] | | + + + + + | Thania Mallory | ECON | [address] | | | | | [place] [address] | | + + + + + | Deidra Weldon | ECON | [address] | | | | | [place] | | | | | [address] | | + + + + + Care Team Providers + +------+ + | Care Compliance Testing Analyst Name | Role | Phone | [...] | MD Emanuel [address] [facility] | | | | | Alexander | Elias Elizondo | | | | | [facility] | [place], [place] | | | | | [address] [facility] | [address] | | | | | Mailcode: DCH7 | [phone] | | | | | Alexander | | | | | | [place], [place] | | | | | | [address] | | | | | | [phone] | | | +--------+ + + + [...] Denise | | | | | | [place], [place] | | | | | | [address] | | | | | | [phone] | | | | | | | [...] + + | [facility] - | [address] | [place] | [phone] | | [place] | | | | + + + + + documented in this encounter Visit Diagnoses Not on filedocumented in this encounter"
--- OUTSIDE RECORDS SUMMARY | ~2019-02-17 | XMS | Encounter Summary ---
Demographics + + + | Address | [address] | | | [place] [address] | + + + | Home Phone [...] | Author | [facility] | | | and Josephana | + + + | Organization | [facility] | | | [...] Team Providers + +------+ + | Care Distance Learning Technician Name | Role | Phone | [...] | stage renal | [address] | [address] [place] [address] | | | | | disease) | Shun Griffin | Jaciel Gotti | | | | | ([facility]) | [address] | [address] | | | | | Anemia in | [place], [place] | [place] | | | | | ESRD | [address] | [address] Phone: | | | | | (end-stage | Phone: | [phone] | | | | | renal | [phone] | Fax: | | | | | disease) | Fax: | [phone] | | | | | ([facility]) | [phone] | | | | | | Procedures [...] | | [address] | [place] | (Primary Dx) | | | | [place], [place] | [place], [place] | | | | | [address] | [address] | | | | | [phone] | | | +--------+ + + + [...] She is see n on HD at [facility], with QB = 450. Unfortunately, she is consistently plagued by unexplained absenteeism from treatments. Despite having reliable transportation arranged b y the Rn Documentation. She apparently still lacks meaningful plans for [...] last 3 mo. I think that her kaltag Dry wt = 97.5 kg? 3. SHPTH--not [...] our office, myself or Dr. Ibarra. : [place] Fina Joy M.D., Pediatric Nephrology, [facility] documented in t his encounter Plan of [...] | | | | | [place] [address] | | | | | | [phone] | | | | | | | | +--------+---------+ + + + documented as of this encounter Visit Diagnoses + + | Diagnosis | + + | ESRD (end stage renal disease) (HCC) - Primary End stage renal disease | + + documented in this encounter"
--- OUTSIDE RECORDS SUMMARY | ~2019-02-17 | XMS | Encounter Summary ---
Demographics + + + | Address | [address] | | | [place] [address] | + + + | Home Phone [...] | | | | | [place] [address] | | + + + + + | Thania Mallory | ECON | [address] | | | | | [place] [address] | | + + + + + | Deidra Weldon | ECON | [address] | | | | | [place] | | | | | [address] | | + + + + + Care Team Providers + +------+ + | Care Health Center Associate Name | Role | Phone | [...] Update | | | | Alexander | [facility] | | | | | [facility] | [place], [place] | | | | | [address] [facility] | [address] | | | | | Mailcode: DCH7 | | | | | | Alexander | | | | | | [place], [place] | | | | | | [address] | | | | | | [phone] | | | +--------+ + + + [...] [place] | | | | | | [address] | | | | | | [phone] | | | | | | | | +--------+ + + + + documented as of this encounter Visit Diagnoses Not on filedocumented in this encounter"
--- OUTSIDE RECORDS SUMMARY | ~2019-02-17 | XMS | Encounter Summary ---
Demographics + + + | Address | [address] | | | [place] [address] | + + + | Home Phone [...] | | | | | [place] [address] | | + + + + + | Thania Mallory | ECON | [address] | | | | | [place] [address] | | + + + + + | Deidra Weldon | ECON | [address] | | | | | [place] | | | | | [address] | | + + + + + Care Team Providers + +------+ + | Care Bench Worker Binding Name | Role | Phone | + [...] class) | | | | [address] [place] | [facility] | | | | | Rd [place], [place] | [place], [place] | | | | | [address] | [address] | | | | | [phone] | | | +--------+ + + + [...] Denise | | | | | | [place] | | | | | | [address] | | | | | | [phone] | | | | | | | | +--------+ + + + + documented as of this encounter Visit Diagnoses Not on filedocumented in this encounter"
--- OUTSIDE RECORDS SUMMARY | ~2019-02-17 | XMS | Encounter Summary ---
Demographics + + + | Address | [address] | | | [place] [address] | + + + | Home Phone [...] | | | | | [place] [address] | | + + + + + | Thania Mallory | ECON | [address] | | | | | [place] [address] | | + + + + + | Deidra Weldon | ECON | [address] | | | | | [place] | | | | | [address] | | + + + + + Care Team Providers + +------+ + | Care Superior Court Judge Name | Role | Phone | [...] | Update | | | | [address] [facility] | [facility] | | | | | Rd [place], [place] | [place], [place] | | | | | [address] | [address] | | | | | [phone] | | | +--------+ + + + [...] [place] | | | | | | [address] | | | | | | [phone] | | | | | | | | +--------+ + + + + documented as of this encounter Visit Diagnoses Not on filedocumented in this encounter"
--- OUTSIDE RECORDS SUMMARY | ~2019-02-17 | XMS | Encounter Summary ---
Demographics + + + | Address | [address] | | | [place] [address] [...] | | | | | [place] [address] | | + + + + + | Thania Mallory | ECON | [address] | | | | | [place] [address] | | + + + + + | Deidra Weldon | ECON | [address] | | | | | [place] | | | | | [address] | | + + + + + Care Team Providers + +------+ + | Care Director Of Home Health Services Name | Role | Phone | [...] | | | | | [address] [place], | | | | | | [place] [address] | | | +--------+ + + + [...] Denise | | | | | | [place], [place] | | | | | | [address] | | | | | | [phone] | | | | | | | [...] DANILO - | [address], | [place] [address] | | | IMMUNOGENETICS/TRANS | [address] | | | | [facility]ANT [facility] | | | | + + + + + documented in this encounter Visit Diagnoses Not on filedocumented in this encounter"
--- OUTSIDE RECORDS SUMMARY | ~2019-02-17 | XMS | Encounter Summary ---
Demographics + + + | Address | [address] | | | [place] [address] | + + + | Home Phone [...] + | Author | [facility] | | | and [place]ana | + + + | Organization | [facility] | | [...] Team Providers + +------+ + | Care Report Writer Name | Role | Phone | [...] | | stage renal | [address] | [address] [place] [address] | | | | | disease) | Shun Griffin | Jaciel Gotti | | | | | ([facility]) | [address] | [address] | | | | | Anemia in | [place], [place] | [address] | | | | | ESRD | [address] | [address] Phone: | | | | | (end-stage | Phone: | [phone] | | | | | renal | [phone] | Fax: | | | | | disease) | Fax: | [phone] | | | | | ([facility]) | [phone] | | | | | | Procedures [...] | | [address] | [place] | (Primary Dx); | | | | [place], [place] | [place], [place] | Secondary | | | | [address] | [address] | hyperparathyroidism | | | | [phone] | | ([facility]) | +--------+ [...] 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 Outpatient Prescriptions Marked as Taking for the [...] treatment will eventually subtract f rom her prison survival. I think that basically she needs [...] [place] | | | | | | [place] [address] | | | | | | [phone] | | | | | | | [...]
--- OUTSIDE RECORDS SUMMARY | ~2019-02-17 | XMS | Encounter Summary ---
Demographics + + + | Address | [address] | | | [place] [address] | + + + | Home Phone [...] | | | | | [place] [address] | | + + + + + | Thania Mallory | ECON | [address] | | | | | [place] [address] | | + + + + + | Deidra Weldon | ECON | [address] | | | | | [place] | | | | | [address] | | + + + + + Care Team Providers + +------+ + | Care Revenue Coordinator Name | Role | Phone | [...] pt's living/support | | | | Rd [place], [place] | [place], [place] | situation) | | | | [address] | [address] | | | | | [phone] | | | +--------+ + + + [...] Denise | | | | | | [place] | | | | | | [address] | | | | | | [phone] | | | | | | | | +--------+ + + + + documented as of this encounter Visit Diagnoses Not on filedocumented in this encounter"
--- OUTSIDE RECORDS SUMMARY | ~2019-02-17 | XMS | Encounter Summary ---
Demographics + + + | Address | [address] | | | [place] [address] | + + + | Home Phone [...] | | | | | [place] [address] | | + + + + + | Thania Mallory | ECON | [address] | | | | | [place] [address] | | + + + + + | Deidra Weldon | ECON | [address] | | | | | [place] | | | | | [address] | | + + + + + Care Team Providers + +------+ + | Care Dowel Pointer Name | Role | Phone | + [...] (Evaluation | | | | [address] [facility] | [facility] [address] | Scheduled) | | | | [place], [place] | [place], [place] | | | | | [address] | [address] | | | | | [phone] | [phone] | | | | | | | [...] Denise | | | | | | [place] | | | | | | [address] | | | | | | [phone] | | | | | | | | +--------+ + + + + documented as of this encounter Visit Diagnoses Not on filedocumented in this encounter"
--- OUTSIDE RECORDS SUMMARY | ~2019-02-17 | XMS | Encounter Summary ---
Demographics + + + | Address | [address] | | | [place] [address] | + + + | Home Phone [...] + | Author | [facility] | | | and [place]ana | + + + | Organization | [facility] [...] Providers + +------+ + | Care Lumber Handler Name | Role | Phone | [...] | | [address] | [place], [address] | (Primary Dx) | | | | [place], [place] | [place], [place] | | | | | [address] | [address] | | | | | [phone] | | | +--------+ + + + [...] [place] | | | | | | [place] [address] | | | | | | [phone] | | | | | | | | +--------+---------+ + + + documented as of this encounter Visit Diagnoses + + | Diagnosis | + + | ESRD (end stage renal disease) (HCC) - Primary End stage renal disease | + + documented in this encounter"
--- OUTSIDE RECORDS SUMMARY | ~2019-02-17 | XMS | Encounter Summary ---
Demographics + + + | Address | [address] | | | [place] [address] | + + + | Home Phone [...] | | | | | [place] [address] | | + + + + + | Thania Mallory | ECON | [address] | | | | | [place] [address] | | + + + + + | Deidra Weldon | ECON | [address] | | | | | [place] | | | | | [address] | | + + + + + Care Team Providers + +------+ + | Care Swimming Pool Service Technician Name | Role | Phone [...] | | 2012 | anned | [address] [facility] | | | | | | [facility] | | | | | | [place], [place] | | | | | | [address] | | | +--------+ + + + [...] Denise | | | | | | [place], [place] | | | | | | [address] | | | | | | [phone] | | | | | | | | +--------+ + + + + documented as of this encounter Visit Diagnoses Not on filedocumented in this encounter"
--- OUTSIDE RECORDS SUMMARY | ~2019-02-17 | XMS | Encounter Summary ---
Demographics + + + | Address | [address] | | | [place] [address] | + + + | Home Phone [...] Author | [facility] | | | and Josephana | + + + | Organization | [facility] [...] Team Providers + +------+ + | Care Bandmill Operator Name | Role | Phone | [...] NEPHROLOGY [address] | M, DO [address] | | | | | [address] | [place] | | | | | [place], [place] | [place], [place] | | | | | [address] | [address] | | | | | [phone] | | | +--------+ + + + [...] [place] | | | | | | [place] [address] | | | | | | [phone] | | | | | | | | +--------+---------+ + + + documented as of this encounter Visit Diagnoses Not on filedocumented in this encounter"
--- OUTSIDE RECORDS SUMMARY | ~2019-02-17 | XMS | Encounter Summary ---
Demographics + + + | Address | [address] | | | [place] [address] | + + + | Home Phone [...] | | | | | [place] [address] | | + + + + + | Thania Mallory | ECON | [address] | | | | | [place] [address] | | + + + + + | Deidra Weldon | ECON | [address] | | | | | [place] | | | | | [address] | | + + + + + Care Team Providers + +------+ + | Care Health And Safety Manager Name | Role | Phone [...] | | | [place] | [place] [address] | | | | | [place] [address] | [phone] | | | | | | | [...] Denise | | | | | | [place], [place] | | | | | | [address] | | | | | | [phone] | | | | | | | [...] [facility] - | [address] | [place] [address] | | | IMMUNOGENETICS/TRANS | [address] | | | | PLANT LAB[facility]ATORY | | | | + + + + + documented in this encounter Visit Diagnoses Not on filedocumented in this encounter"
--- OUTSIDE RECORDS SUMMARY | ~2019-02-17 | XMS | Encounter Summary ---
Demographics + + + | Address | [address] | | | [place] [address] | + + + | Home Phone [...] + | Author | [facility] | | | and [place] | + + + | Organization | [facility] [...] Providers + +------+ + | Care Distribution Driver Name | Role | Phone | [...] | | | | [place], [place] | [phone] | | | | | [address] | | | | | | [phone] | | | +--------+ + + + [...] | | | | | [place] [address] | | | | | | [phone] | | | | | | | [...]
--- OUTSIDE RECORDS SUMMARY | ~2019-02-17 | XMS | Encounter Summary ---
Demographics + + + | Address | [address] | | | [place] [address] | + + + | Home Phone [...] + + | Author | [facility] | | | and [place]ana | + + + | Organization | [facility] | [...] Team Providers + +------+ + | Care Liberal Arts Teacher Name | Role | Phone | + +------+ + | Jonathan Alonso MD | PCP | | + +------+ + Encounter Details +--------+ + + + + | Date | Type | Department | Care Team | Description | +--------+ + + + + | 03/27/ | Orders Only | [facility] | Rik Simon MD | | | 2014 | | VASCULAR SURGERY | [address] | | | | | [address]TR[address] | [place], [place] | | | | | [address] [place] | [address] | | | | | [place], [place] | [phone] | | | | | [address] | | | | | | [phone] | | | +--------+ + + + [...] [place] | | | | | | [place] [address] | | | | | | [phone] | | | | | | | [...]
--- OUTSIDE RECORDS SUMMARY | ~2019-02-17 | XMS | Encounter Summary ---
Demographics + + + | Address | [address] | | | [place] [address] | + + + | Home Phone [...] Author | [facility] | | | and [place]ana | + + + | Organization | [facility] | [...] Team Providers + +------+ + | Care Gullet Slitter Name | Role | Phone | + [...] | | | | [place], [place] | [phone] | | | | | [address] | | | | | | [phone] | | | +--------+ + + + [...] | | | | | [place] [address] | | | | | | [phone] | | | | | | | [...]
--- OUTSIDE RECORDS SUMMARY | ~2019-02-17 | XMS | Encounter Summary ---
Demographics + + + | Address | [address] | | | [place] [address] | + + + | Home Phone [...] | Author | [facility] | | | and [place] | + + + | Organization | [facility] | | [...] Providers + +------+ + | Care Registered Vascular Technologist (Rvt) Name | Role | Phone | + +------+ + PCP | Unavailable | + +------+ + Encounter Details +--------+ + + + + | Date | Type | Department | Care Team | Description | +--------+ + + + + | 05/29/ | Hospital | [facility] | Conversion | End stage renal | | 2014 | Encounter | [facility] | Transaction, | disease (HCC) | | | | [address] | Provider Unknown | | | | | [place], [place] | | | | | | [address] | (Fax) | | | | | [phone] | | | +--------+ + + + [...] 05/29/141653 Date of Service: 05/29/141648 Status: Signed Seo Manager: Mesha Clark RN (Registered Nurse) Discharge [...] E | | | | | | [place] [address] | | | | | | [phone] | | | | | | | [...] Successful | | | placement of a 14.5-Lebanese dual-lumen 19-cm tunneled hemodialysis | | | catheter with its tip in the upper portion of the right atrium without | | | incidence. 70525, [address], 37667, 42061-07 Electronically | | | signed by Darryn [...] jugular vein. 3. Placement of 19 cm, 14.5-Lebanese | | | dual-lumen tunneled palindrome hemodialysis [...] conscious sedation and | | | independent alf supervision of the conscious sedation was | [...] records. 3. Upper chest radiograph shows dual-lumen, 14.5-Lebanese, | | | 19-cm, tunneled dialysis catheter [...] | micropuncture needle and exchanged for a 4-Lebanese micropuncture sheath | | | over a 0.018 wire. Skin in the infraclavicular region was | | | infiltrated with 1% lidocaine and a 5-mm skin incision was made. A | | | 14.5-Lebanese, dual-lumen, 19-cm tunneled hemodialysis catheter was | | | placed a subcutaneous tunnel using a metallic tunneler. The 4-Lebanese | | | sheath was exchanged for a 0.035, 3-mm J-wire with its tip in the | | | right atrium under fluoroscopy guidance. The skin and subcutaneous | | | tract was dilated using at 12 and 14-Lebanese facial dilators. A | | | 15-Lebanese peel-away sheath was placed over the wire [...] vein.3. Placement of 19 | | cm, 14.5-Lebanese dual-lumen tunneled palindrome hemodialysis catheter in the [...] maintenance of adequate conscious sedation and independent alf | | supervision of the conscious sedation [...] Upper chest radiograph shows dual-lumen, | | 14.5-Lebanese, 19-cm, tunneled dialysis catheter with its tip [...] needle and exchanged for | | a 4-Lebanese micropuncture sheath over a 0.018 wire. Skin in the infraclavicular region | | was infiltrated with 1% lidocaine and a 5-mm skin incision was made. A 14.5-Lebanese, | | dual-lumen, 19-cm tunneled hemodialysis catheter was placed a subcutaneous tunnel using | | a metallic tunneler. The 4-Lebanese sheath was exchanged for a 0.035, 3-mm J-wire with | | its tip in the right atrium under fluoroscopy guidance. The skin and subcutaneous tract | | was dilated using at 12 and 14-Lebanese facial dilators. A 15-Lebanese peel-away sheath | | was placed over [...] veins.2. Successful placement | | of a 14.5-Lebanese dual-lumen 19-cm tunneled hemodialysis catheter with its tip in the | | upper portion of the right atrium without incidence. 06107, 21683, 29541, 43749-57 | | | |2. Successful placement of a 14.5-Lebanese dual-lumen 19-cm tunneled hemodialysis catheter w ith its tip in the upper portion of the right atrium without incidence. | | | |[address], [address], [address], 75[address]-54 | | | | | + + documented in this encounter Visit Diagnoses + + | Diagnosis | + + | End stage renal disease (HCC) End stage renal disease | + + documented in this encounter"
--- OUTSIDE RECORDS SUMMARY | ~2019-02-17 | XMS | Encounter Summary ---
Demographics + + + | Address | [address] | | | [place] [address] | + + + | Home Phone [...] | | | | | [place] [address] | | + + + + + | Thania Mallory | ECON | [address] | | | | | [place] [address] | | + + + + + | Deidra Weldon | ECON | [address] | | | | | [place] | | | | | [address] | | + + + + + [...] | Requested | | | | [facility] | [facility] | | | | | Rd [place], [place] | [place], [place] | | | | | [address] | [address] | | | | | [phone] | | | +--------+ + + + [...] [place] | | | | | | [address] | | | | | | [phone] | | | | | | | | +--------+ + + + + documented as of this encounter Visit Diagnoses Not on filedocumented in this encounter"
--- OUTSIDE RECORDS SUMMARY | ~2019-02-17 | XMS | Encounter Summary ---
Demographics + + + | Address | [address] | | | [place] [address] | + + + | Home Phone [...] Author | [facility] | | | and [place]ana | + + + | Organization | [facility] [...] Team Providers + +------+ + | Care Internet Merchant Name | Role | Phone | + +------+ + PCP | Unavailable | + +------+ + Encounter Details +--------+ + + + + | Date | Type | Department | Care Team | Description | +--------+ + + + + | 12/27/ | Hospital | [facility] OP | Sudhakar Joy | | | 2010 | Encounter | JOY | MD Emanuel [address] | | | | | [address] | [facility] | | | | | [address] | [place], [place] | | | | | [place], [place] | [address] | | | | | [address] | [phone] | | | | | [phone] | | | +--------+ + + + [...] | | | | | [place] [address] | | | | | | [phone] | | | | | | | | +--------+---------+ + + + documented as of this encounter Visit Diagnoses Not on filedocumented in this encounter"
--- OUTSIDE RECORDS SUMMARY | ~2019-02-17 | XMS | Encounter Summary ---
Demographics + + + | Address | [address] | | | [place] [address] | + + + | Home Phone [...] | | | | | [place] [address] | | + + + + + | Thania Mallory | ECON | [address] | | | | | [place] [address] | | + + + + + | Deidra Weldon | ECON | [address] | | | | | [place] | | | | | [address] | | + + + + + Care Team Providers + +------+ + | Care Hair Weaver Name | Role | Phone | [...] | | [facility] | | | | | Rd [place], [place] | [place], [place] | | | | | [address] | [address] | | | | | [phone] | | | +--------+ + + + [...] Denise | | | | | | [place], [place] | | | | | | [address] | | | | | | [phone] | | | | | | | | +--------+ + + + + documented as of this encounter Visit Diagnoses Not on filedocumented in this encounter"
--- OUTSIDE RECORDS SUMMARY | ~2019-02-17 | XMS | Encounter Summary ---
[...] | | | | | [place] [address] | | + + + + + | Thanai Mallory | ECON | [address] | | | | | [place] [address] | | + + + + + | Deidra Weldon | ECON | [address] | | | | | [place] | | | | | [address] | | + + + + + Care Team Providers + +------+ + | Care Packaging Machine Operator Name | Role | Phone [...] Elias Elizondo | | | | | ([facility]) | Caro Chan | [place], | | | | | Allergic | [place], [place] | [place] | | | | | purpura | [address] | [address] | | | | | ([facility]) | Phone: | Phone: | | | | | | [phone] | [phone] | | | | | | Fax: | Fax: | | | | | | [phone] | [phone] | +--------+--------+ + + + + Encounter Details +--------+---------+ + + + | Date | Type | Department | Care Team | Description | +--------+---------+ + + + | 12/19/ | Office | Kidney Transplant | Clinic, Ltx 3181 | Patient on | | 2012 | Visit | at Physician's | [facility] | peritoneal dialysis | | | | [address] [place], [place] | (HCC) (Primary Dx); | | | | [address] | [address] | Unspecified | | | | Mailcode: L590 | | essential | | | | [facility] | | hypertension; HSP | | | | [place], [place] | | ([place] | | | | [address]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; | | | | [phone] | | Obesity (BMI | | | [...] on file Social History Narrative Lives in [place], [place] with father and step-mother; 2 dogs; [...] Transplant Selection Confer ence. El Starr MD day care home provider, Division of Abdominal Organ Transplantation Professor of Urology CC: Sudhakar Joy MD [address] [place] [address] documented in this encoun ter Plan of Treatment +--------+ + + + + | Date | Type | Specialty | Care Team | Description | +--------+ + + + + | 05/04/ | Hospital | Adult Acute Care | El Starr MD | | | 2022 | Encounter | | [address] | | | | | | [place], [place] | | | | | | [address] | | | | | | [phone] | | | | | | | [...]
--- OUTSIDE RECORDS SUMMARY | ~2019-02-17 | XMS | Encounter Summary ---
Demographics + + + | Address | [address] | | | [place] [address] | + + + | Home Phone [...] | [facility] | | | and [place] | + + + | Organization | [facility] [...] Providers + +------+ + | Care Cashier Or Checker Stock Clerk Name | Role | Phone | + +------+ + PCP | Unavailable | + +------+ + Encounter Details +--------+ + + + + | Date | Type | Department | Care Team | Description | +--------+ + + + + | 04/07/ | Hospital | [facility] | Conversion | | | 2015 | Encounter | [facility] | Transaction, | | | | | CLINIC [address] | Provider Unknown | | | | | [place], [place] | [phone] | | | | | [address] | | | | | | [phone] | | | +--------+ + + + [...] E | | | | | | [place] [address] | | | | | | [phone] | | | | | | | [...] | Testing performed at [facility] [place] [address];[place] [address] MRSA PCR | | | NEGATIVE Testing performed at | | | [facility];[address] [place] [address];[place] [address] | | + + + + +---------+ [...] | LAB | | | | [address];[place], [place] | | | | | | [address] | | | | + + + [...] performed at [facility];[address] | | | | | | [address] [facility];[place], [place] | | | | | | [address] | | | | + + + [...] [place] | | | | | | [address] | | | | + + + + + + | RED CELL | 3.67 (L)Comment: Testing | 3.70 - 5.10 | EXTERNAL | | | COUNT | performed at [facility];[address] | M/uL | LAB | | | | [address];[place] | | | | | | [address] | | | | + + + + + + | Hgb | 13.0Comment: Testing | 11.3 - 15.5 | EXTERNAL | | | | performed at [facility];[address] | g/dL | LAB | | | | [address];[place] | | | | | | [address] | | | | + + + + + + | Hematocrit, | 38.3Comment: Testing | 34.0 - 46.0 % | EXTERNAL | | | POC | performed at [facility];[address] | | LAB | | | | [address];[place] | | | | | | [address] | | | | + + + + + + | MCV | 104.3 (H)Comment: | 80.0 - 100.0 fl | EXTERNAL | | | | Testing performed at | | LAB | | | | [facility];[address];[place] [address] | | | | + + + + + + | MCH | 35.4 (H)Comment: Testing | 27.0 - 34.0 pg | EXTERNAL | | | | performed at [facility];[address] | | LAB | | | | [address];[place] | | | | | | [address] | | | | + + + + + + | MCHC | 33.9Comment: Testing | 32.0 - 35.5 | EXTERNAL | | | | performed at [facility];888 | g/dL | LAB | | | | [address];[place] | | | | | | [address] | | | | + + + + + + | RDW-CV | 48.1Comment: Testing | 37 - 53 fl | EXTERNAL | | | | performed at [facility];[address] | | LAB | | | | [address];[place] | | | | | | [address] | | | | + + + + + + | Platelet | 157Comment: Testing | 150 - 400 K/uL | EXTERNAL | | | Count | performed at [facility];[address] | | LAB | | | Plasma | [address];[place] | | | | | | [address] | | | | + + + + + + | MPV | 9.3Comment: Testing | fl | EXTERNAL | | | | performed at [facility];[address] | | LAB | | | | [address];[place] | | | | | | [address] | | | | + + + + + + | Differentia | AUTOMATEDComment: | | EXTERNAL | | | l Type | Testing performed at | | LAB | | | | [facility];[address];[place] [address] | | | | + + + + + + | % Segmented | 55.8Comment: Testing | % | EXTERNAL | | | | performed at [facility];[address] | | LAB | | | Neutrophils | [address];[place] | | | | | | [address] | | | | + + + + + + | % | 35.8Comment: Testing | % | EXTERNAL | | | Lymphocytes | performed at [facility];[address] | | LAB | | | | [address];[place] | | | | | | [address] | | | | + + + + + + | % Monocytes | 6.0Comment: Testing | % | EXTERNAL | | | | performed at [facility];[address] | | LAB | | | | [address];[place] | | | | | | [address] | | | | + + + + + + | % | 1.9Comment: Testing | % | EXTERNAL | | | Eosinophils | performed at [facility];[address] | | LAB | | | | [address];[place] | | | | | | [address] | | | | + + + + + + | % Basophils | 0.5Comment: Testing | % | EXTERNAL | | | | performed at [facility];[address] | | LAB | | | | [address];[place] | | | | | | [address] | | | | + + + + + + | Absolute | 2.8Comment: Testing | 1.9 - 7.4 K/uL | EXTERNAL | | | Segmented | performed at [facility];[address] | | LAB | | | Neutrophils | [address];[place] | | | | | | [address] | | | | + + + + + + | Absolute | 1.8Comment: Testing | 1.0 - 3.9 K/uL | EXTERNAL | | | Lymphocytes | performed at [facility];[address] | | LAB | | | | [address];[place] | | | | | | [address] | | | | + + + + + + | Absolute | 0.3Comment: Testing | 0 - 0.8 K/uL | EXTERNAL | | | Monocytes | performed at [facility];[address] | | LAB | | | | [address];[place] | | | | | | [address] | | | | + + + + + + | Absolute | 0.1Comment: Testing | 0 - 0.5 K/uL | EXTERNAL | | | Eosinophils | performed at [facility];[address] | | LAB | | | | [address];[place] | | | | | | [address] | | | | + + + + + + | Absolute | 0.0Comment: Testing | 0 - 0.1 K/uL | EXTERNAL | | | Basophils | performed at [facility];[address] | | LAB | | | | [address];[place] | | | | | | [address] | | | | + + + [...] | | | QUALITATIVE | performed at [facility];[address] | | LAB | | | | [address];[place], [place] | | | | | | [address] | | | | + + + [...] [place] | | | | | | [address] | | | | + + + + + + | K | 3.3 (L)Comment: Testing | 3.5 - 4.9 | EXTERNAL | | | | performed at [facility];[address] | mmol/L | LAB | | | | [address];[place] | | | | | | [address] | | | | + + + + + + | Cl | 99Comment: Testing | 99 - 109 mmol/L | EXTERNAL | | | | performed at [facility];[address] | | LAB | | | | [address];[place] | | | | | | [address] | | | | + + + + + + | CO2 | 29Comment: Testing | 23 - 32 mmol/L | EXTERNAL | | | | performed at [facility];[address] | | LAB | | | | [address];[place] | | | | | | [address] | | | | + + + + + + | Anion Gap | 13Comment: Testing | 5 - 20 mmol/L | EXTERNAL | | | | performed at [facility];[address] | | LAB | | | | [address];[place] | | | | | | [address] | | | | + + + + + + | Glucose, | 92Comment: Testing | 65 - 99 mg/dL | EXTERNAL | | | Fasting | performed at [facility];[address] | | LAB | | | | [address];[place] | | | | | | [address] | | | | + + + + + + | BUN | 30 (H)Comment: Testing | 8 - 25 mg/dL | EXTERNAL | | | | performed at [facility];[address] | | LAB | | | | [address];[place] | | | | | | [address] | | | | + + + + + + | Creatinine | 7.21 (H)Comment: Testing | 0.50 - 1.00 | EXTERNAL | | | | performed at [facility];888 | mg/dL | LAB | | | | [address];[place] | | | | | | [address] | | | | + + + + + + | BUN/Creatin | 4Comment: Testing | | EXTERNAL | | | ine Ratio | performed at [facility];[address] | | LAB | | | | [address];[place] | | | | | | [address] | | | | + + + + + + | Calcium | 8.3 (L)Comment: NOTE NEW | 8.5 - 10.5 | EXTERNAL | | | | REFERENCE RANGETesting | mg/dL | LAB | | | | performed at [facility];[address] | | | | | | [address];[place] | | | | | | [address] | | | | + + + [...] [place] | | | | | | [address] | | | | + + + [...]
--- OUTSIDE RECORDS SUMMARY | ~2019-02-17 | XMS | Encounter Summary ---
Demographics + + + | Address | [address] | | | [place] [address] | + + + | Home Phone [...] + | Author | [facility] | | | and [place] | + + + | Organization | [facility] | [...] Team Providers + +------+ + | Care Scalp Treatment Operator Name | Role | Phone | [...] | | KIDNEY TRANSPLANT | [address], | | | | | [address] [place] | [place] [address] | | | | | [address] [place], [place] | [phone] | | | | | [address] | | | | | | [phone] | | | +--------+ + + + [...] [place] | | | | | | [place] [address] | | | | | | [phone] | | | | | | | | +--------+---------+ + + + documented as of this encounter Visit Diagnoses Not on filedocumented in this encounter"
--- OUTSIDE RECORDS SUMMARY | ~2019-02-17 | XMS | Encounter Summary ---
Demographics + + + | Address | [address] | | | [place] [address] | + + + | Home Phone [...] | | | | | [place] [address] | | + + + + + | Thania Mallory | ECON | [address] | | | | | [place] [address] | | + + + + + | Deidra Weldon | ECON | [address] | | | | | [place] | | | | | [address] | | + + + + + Care Team Providers + +------+ + | Care Coal Tower Operator Name | Role | Phone | [...] [place] | | | | | [facility] | [facility] | | | | | [address] [place], [place] | [place], [place] | | | | | [address] | [address] | | | | | [phone] | | | +--------+ + + + [...] [place] | | | | | | [address] | | | | | | [phone] | | | | | | | | +--------+ + + + + documented as of this encounter Visit Diagnoses Not on filedocumented in this encounter"
--- OUTSIDE RECORDS SUMMARY | ~2019-02-17 | XMS | Encounter Summary ---
Demographics + + + | Address | [address] | | | [place] [address] | + + + | Home Phone [...] | [facility] | | | and [place] | + + + | Organization | [facility] [...] Team Providers + +------+ + | Care Bicycle Mechanic Name | Role | Phone | [...] NEPHROLOGY [address] | MD [address] | intermittent, | | | | [address] | [address] [place] | uncomplicated | | | | [place], [place] | [place] [address] | (Primary Dx) | | | | [address] | [phone] | | | | | [phone] | | | +--------+ + + + [...] [place] | | | | | | [place] [address] | | | | | | [phone] | | | | | | | | +--------+---------+ + + + documented as of this encounter Visit Diagnoses + + | Diagnosis | + + | Asthma, mild intermittent, uncomplicated - Primary | + + documented in this encounter"
--- OUTSIDE RECORDS SUMMARY | ~2019-02-17 | XMS | Encounter Summary ---
Demographics + + + | Address | [address] | | | [place] [address] | + + + | Home Phone [...] | [facility] | | | and [place] | + + + | Organization | [facility] | [...] Team Providers + +------+ + | Care Shopper Marketing Manager Name | Role | Phone | [...] | | | | | | [place] | | | | | | | [...] MED CTR OR INTRA OP | MD Atnonieta, FACS [address] | Cephalic Fistula | | | | [address] | [place] | Creation | | | | [place] | [place] [address] | | | | | [address] | [phone] | | | | | [phone] | | | +--------+---------+ + + + [...] might be different f rom the original. [facility] POST-OP INSTRUCTIONS: Arterio-Venous Fistula 1. Keep [...] may interact with prescription medicines or other stcw-pkc-incnaxq (OTC) drugs. The FDA recommends reading OTC medication labels careful ly to clearly understand the list of active ingredients, directions, and any precautions to help avoid taking too muchacetaminophen. If you have questions, ask your pharmacist or a [facility] care provider. Managing Nausea Some people have [...] or skin changes (rash, itching, or hives). 1637-8044 [employer]. [address] [place] [address], [place] [address]. All righ ts reserved. This information is [...] | | | | | [place] [address] | | | | | | [phone] | | | | | | | [...] mL/min/1.73m2 | [facility] | | | [facility] | (<18). | | MEDICAL | | [...] | [address] | [place] | [phone] | | [facility] | | [address] | | | - LABORATORY | | | | + + + + + | [facility] | [address] | [place], [place] | | | [facility] | | [address] | | | - LABORATORY | | [...]
--- OUTSIDE RECORDS SUMMARY | ~2019-02-17 | XMS | Encounter Summary ---
Demographics + + + | Address | [address] | | | [place] [address] | + + + | Home Phone [...] | Author | [facility] | | | and [place] | + + + | Organization | [facility] [...] Team Providers + +------+ + | Care Dam Tender Name | Role | Phone | [...] NEPHROLOGY [address] | M, DO [address] | | | | | [address] | [place] | | | | | [place], [place] | [place], [place] | | | | | [address] | [address] | | | | | [phone] | | | +--------+ + + + [...] [place] | | | | | | [place] [address] | | | | | | [phone] | | | | | | | | +--------+---------+ + + + documented as of this encounter Visit Diagnoses Not on filedocumented in this encounter"
--- OUTSIDE RECORDS SUMMARY | ~2019-02-17 | XMS | Encounter Summary ---
Demographics + + + | Address | [address] | | | [place] [address] | + + + | Home Phone [...] | [facility] | | | and [place] | + + + | Organization | [facility] | | | [...] Team Providers + +------+ + | Care Leather Whitener Name | Role | Phone | + +------+ + PCP | Unavailable | + +------+ + Encounter Details +--------+ + + + + | Date | Type | Department | Care Team | Description | +--------+ + + + + | 03/07/ | Hospital | [facility] | Rik Simon MD | 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) | | | | [place], [place] | [phone] | | | | | [address] | | | | | | [phone] | | | +--------+ + + + [...] [place] | | | | | | [place] [address] | | | | | | [phone] | | | | | | | [...] preparation was performed | | | by [facility], [address], | | | [place] [address] (Nursing Program Coordinator: Daniel Larson M.D.; | | | [facility]#: [id number]). Diagnostician: Anahy Da Silva MD Pathologist | [...] LAB | | | | Blvd;[place] [address] | | | | + + + + + + | Antibody | NEGATIVE | | EXTERNAL | | | Screen | | | LAB | | + + + + + + | Antibody | Testing performed at | | EXTERNAL | | | Screen | [facility];[address] | | LAB | | | | [address];[place] [address] | | | | + + + + + + | BB BAND | [id number] | | EXTERNAL | | | | | | LAB | | + + + + + + | BB BAND | Testing performed at | | EXTERNAL | | | | [facility];[address] | | LAB | | | | [address];[place] [address] | | | | + + + [...] performed at [facility] | | LAB | | | | [address];[place] | | | | | | [address] | | | | + + + [...] [place] | | | | | | [address] | | | | + + + + + + | RED CELL | 3.70Comment: Testing | 3.70 - 5.10 | EXTERNAL | | | COUNT | performed at [facility];[address] | M/uL | LAB | | | | [address];[place] | | | | | | [address] | | | | + + + + + + | Hgb | 12.9Comment: Testing | 11.3 - 15.5 | EXTERNAL | | | | performed at [facility];888 | g/dL | LAB | | | | [address];[place] | | | | | | [address] | | | | + + + + + + | Hematocrit, | 38.9Comment: Testing | 34.0 - 46.0 % | EXTERNAL | | | POC | performed at [facility];[address] | | LAB | | | | [address];[place] | | | | | | [address] | | | | + + + + + + | MCV | 105.2 (H)Comment: | 80.0 - 100.0 fl | EXTERNAL | | | | Testing performed at | | LAB | | | | [facility];[address] | | | | | [address];[place] [address] | | | | + + + + + + | MCH | 35.0 (H)Comment: Testing | 27.0 - 34.0 pg | EXTERNAL | | | | performed at [facility];[address] | | LAB | | | | [address];[place] | | | | | | [address] | | | | + + + + + + | MCHC | 33.3Comment: Testing | 32.0 - 35.5 | EXTERNAL | | | | performed at [facility];888 | g/dL | LAB | | | | [address];[place] | | | | | | [address] | | | | + + + + + + | RDW-CV | 51.6Comment: Testing | 37 - 53 fl | EXTERNAL | | | | performed at [facility];[address] | | LAB | | | | [address];[place] | | | | | | [address] | | | | + + + + + + | Platelet | 175Comment: Testing | 150 - 400 K/uL | EXTERNAL | | | Count | performed at [facility];[address] | | LAB | | | Plasma | [address];[place] | | | | | | [address] | | | | + + + + + + | MPV | 8.9Comment: Testing | fl | EXTERNAL | | | | performed at [facility];[address] | | LAB | | | | [address];[place] | | | | | | [address] | | | | + + + + + + | Differentia | AUTOMATEDComment: | | EXTERNAL | | | l Type | Testing performed at | | LAB | | | | [facility];[address] | | | | [address];[place] [address] | | | | + + + + + + | % Segmented | 71.7Comment: Testing | % | EXTERNAL | | | | performed at [facility];[address] | | LAB | | | Neutrophils | [address];[place] | | | | | | [address] | | | | + + + + + + | % | 19.5Comment: Testing | % | EXTERNAL | | | Lymphocytes | performed at [facility];[address] | | LAB | | | | [address];[place] | | | | | | [address] | | | | + + + + + + | % Monocytes | 6.7Comment: Testing | % | EXTERNAL | | | | performed at [facility];[address] | | LAB | | | | [address];[place] | | | | | | [address] | | | | + + + + + + | % | 1.6Comment: Testing | % | EXTERNAL | | | Eosinophils | performed at [facility];[address] | | LAB | | | | [address];[place] | | | | | | [address] | | | | + + + + + + | % Basophils | 0.5Comment: Testing | % | EXTERNAL | | | | performed at [facility];[address] | | LAB | | | | [address];[place] | | | | | | [address] | | | | + + + + + + | Absolute | 5.6Comment: Testing | 1.9 - 7.4 K/uL | EXTERNAL | | | Segmented | performed at [facility];[address] | | LAB | | | Neutrophils | [address];[place] | | | | | | [address] | | | | + + + + + + | Absolute | 1.5Comment: Testing | 1.0 - 3.9 K/uL | EXTERNAL | | | Lymphocytes | performed at [facility];[address] | | LAB | | | | [address];[place] | | | | | | [address] | | | | + + + + + + | Absolute | 0.5Comment: Testing | 0 - 0.8 K/uL | EXTERNAL | | | Monocytes | performed at [facility];[address] | | LAB | | | | [address];[place] | | | | | | [address] | | | | + + + + + + | Absolute | 0.1Comment: Testing | 0 - 0.5 K/uL | EXTERNAL | | | Eosinophils | performed at [facility];[address] | | LAB | | | | [address];[place] | | | | | | [address] | | | | + + + + + + | Absolute | 0.0Comment: Testing | 0 - 0.1 K/uL | EXTERNAL | | | Basophils | performed at [facility];[address] | | LAB | | | | [address];[place], [place] | | | | | | [address] | | | | + + + [...] [facility];888 | mmol/L | LAB | | | | [address];[place] | | | | | | [address] | | | | + + + + + + | K | 3.9Comment: Testing | 3.5 - 4.9 | EXTERNAL | | | | performed at [facility];888 | mmol/L | LAB | | | | [address];[place] | | | | | | [address] | | | | + + + + + + | Cl | 103Comment: Testing | 99 - 109 mmol/L | EXTERNAL | | | | performed at [facility];[address] | | LAB | | | | [address];[place] | | | | | | [address] | | | | + + + + + + | CO2 | 26Comment: Testing | 23 - 32 mmol/L | EXTERNAL | | | | performed at [facility];[address] | | LAB | | | | [address];[place] | | | | | | [address] | | | | + + + + + + | Anion Gap | 12Comment: Testing | 5 - 20 mmol/L | EXTERNAL | | | | performed at [facility];[address] | | LAB | | | | [address];[place] | | | | | | [address] | | | | + + + + + + | Glucose, | 78Comment: Testing | 65 - 99 mg/dL | EXTERNAL | | | Fasting | performed at [facility];[address] | | LAB | | | | [address];[place] | | | | | | [address] | | | | + + + + + + | BUN | 12Comment: Testing | 8 - 25 mg/dL | EXTERNAL | | | | performed at [facility];[address] | | LAB | | | | [address];[place] | | | | | | [address] | | | | + + + + + + | Creatinine | 3.51 (H)Comment: Testing | 0.50 - 1.00 | EXTERNAL | | | | performed at [facility];888 | mg/dL | LAB | | | | [address];[place] | | | | | | [address] | | | | + + + + + + | BUN/Creatin | 4Comment: Testing | | EXTERNAL | | | ine Ratio | performed at [facility];[address] | | LAB | | | | [address];[place] | | | | | | [address] | | | | + + + + + + | Calcium | 9.6Comment: Testing | 8.5 - 10.2 | EXTERNAL | | | | performed at [facility];888 | mg/dL | LAB | | | | [address];[place] | | | | | | [address] | | | | + + + + + + | Protein, | 8.1Comment: Testing | 6.3 - 8.2 g/dL | EXTERNAL | | | Total | performed at [facility];[address] | | LAB | | | | [address];[place] | | | | | | [address] | | | | + + + + + + | Albumin | 3.7Comment: Testing | 3.6 - 5.0 g/dL | EXTERNAL | | | | performed at [facility];[address] | | LAB | | | | [address];[place] | | | | | | [address] | | | | + + + + + + | Globulin | 4.3Comment: Testing | 1.3 - 4.9 g/dL | EXTERNAL | | | | performed at [facility];[address] | | LAB | | | | [address];[place] | | | | | | [address] | | | | + + + + + + | A/G Ratio | 0.9 (L)Comment: Testing | 1.0 - 2.4 | EXTERNAL | | | | performed at [facility];[address] | | LAB | | | | [address];[place] | | | | | | [address] | | | | + + + + + + | Bilirubin | 0.4Comment: Testing | 0.1 - 1.5 mg/dL | EXTERNAL | | | Total | performed at [facility];[address] | | LAB | | | | [address];[place] | | | | | | [address] | | | | + + + + + + | ALP, | 121 (H)Comment: Testing | 35 - 115 U/L | EXTERNAL | | | External | performed at [facility];[address] | | LAB | | | | [address];[place] | | | | | | [address] | | | | + + + + + + | AST | 20Comment: Testing | 10 - 45 U/L | EXTERNAL | | | | performed at [facility];[address] | | LAB | | | | [address];[place] | | | | | | [address] | | | | + + + + + + | ALT | 38Comment: Testing | 10 - 65 U/L | EXTERNAL | | | | performed at [facility];[address] | | LAB | | | | [address];[place] | | | | | | [address] | | | | + + + [...] [place] | | | | | | [address] | | | | + + + [...]
--- OUTSIDE RECORDS SUMMARY | ~2019-02-17 | XMS | Encounter Summary ---
Demographics + + + | Address | [address] | | | [place] [address] | + + + | Home Phone [...] | | | | | [place] [address] | | + + + + + | Thania Mallory | ECON | [address] | | | | | [place] [address] | | + + + + + | Deidra Weldon | ECON | [address] | | | | | [place] | | | | | [address] | | + + + + + Care Team Providers + +------+ + | Care Decorating Consultant Name | Role | Phone | + +------+ + | Shahid Camargo MD | PCP | | + +------+ + Encounter Details +--------+ + + + + | Date | Type | Department | Care Team | Description | +--------+ + + + + | 12/20/ | Hospital | Radiology at [facility] | | | | 2012 | Encounter | [address] | | | | | | Mailcode: [id number] | | | | | | [place] | | | | | | [place], [place] | | | | | | [address] | | | | | | [phone] | | | +--------+ + + + [...] Denise | | | | | | [place], [place] | | | | | | [address] | | | | | | [phone] | | | | | | | [...] | e | 9:27 AM | MEDICARE [phone] | procedure are in the | | [...]
--- OUTSIDE RECORDS SUMMARY | ~2019-02-17 | XMS | Encounter Summary ---
Demographics + + + | Address | [address] | | | [place] [address] | + + + | Home Phone [...] | | | | | [place] [address] | | + + + + + | Thania Mallory | ECON | [address] | | | | | [place] [address] | | + + + + + | Deidra Weldon | ECON | [address] | | | | | [place] | | | | | [address] | | + + + + + Care Team Providers + +------+ + | Care Carpet Layer Name | Role | Phone | [...] MD Emanuel [address] | Recommendations | | | | [place] | Elias Caro | | | | | [facility] | [place], [place] | | | | | [address] | [address] | | | | | Mailcode: [id number] | [phone] | | | | | [place] | | | | | | [place], [place] | | | | | | [address] | | | | | | [phone] | | | +--------+ + + + [...] | | | | | | [place] | | | | | | [address] | | | | | | [phone] | | | | | | | | +--------+ + + + + documented as of this encounter Visit Diagnoses Not on filedocumented in this encounter"
--- OUTSIDE RECORDS SUMMARY | ~2019-02-17 | XMS | Encounter Summary ---
Demographics + + + | Address | [address] | | | [place] [address] | + + + | Home Phone [...] | [facility] | | | and [place] | + + + | Organization | [facility] | | [...] + + | 07/31/ | Hospital | [facility] | Conversion | ESRD (end stage | | 2015 | Encounter | CENTER [facility] OP | Transaction, | renal disease) (HCC) | | | | [address] | Provider Unknown | | | | | [place], [place] | [phone] | | | | | [address] | | | | | | [phone] | Colten Hutchins MD | | | | | | [address] | | | | | | [place], [place] | | | | | | [address] | | | | | | | [...] 07/31/141620 Date of Service: 07/31/141619 Status: Signed Heel Curver: Mervat Harden RN (Registered Nurse) Pt meets d/c criteria. Site c/d/i and soft. Mother providing transportation home. Mervat Harden RN onver arturo Transaction, Provider Unknown - 07/31/2014 3:52 PM PDT Progress Notes by Mervat Harden RN at 07/31/141551 Author: Mervat Harden RN Service: (none) Author Type: Registered Nurse Filed: 07/31/14 0585 Date of Service: 07/31/141551 Status: Signed Heel Curver: Mervat Harden RN (Registered Nurse) Pt tolerated [...] [address] | | | | | | [place] [address] | | | | | | [phone] | | | | | | | [...] this | | | patient in the [place] [place] holding area. I had a discussion with [...] met this patient | | in the [place] holding area. I had a discussion with [...]
--- OUTSIDE RECORDS SUMMARY | ~2019-02-17 | XMS | Encounter Summary ---
Demographics + + + | Address | [address] | | | [place] [address] | + + + | Home Phone [...] + | Author | [facility] | | | and [place] | + + + | Organization | [facility] [...] Providers + +------+ + | Care Acid Loader Name | Role | Phone | + +------+ + PCP | Unavailable | + +------+ + Encounter Details +--------+ + + + + | Date | Type | Department | Care Team | Description | +--------+ + + + + | 04/07/ | Hospital | [facility] | Conversion | | | 2015 | Encounter | [facility]ENTER [facility] | Transaction, | | | | | CLINIC [address] | Provider Unknown | | | | | [place], [place] | [phone] | | | | | [address] | | | | | | [phone] | | | +--------+ + + + [...] E | | | | | | [place] [address] | | | | | | [phone] | | | | | | | [...] Testing performed at [facility];[address] [place] [address];[place] [address] MRSA PCR | | | NEGATIVE Testing performed at | | | [facility];[address] [place] [address];[place] [address] | | + + + + +---------+ [...] | | | Patient | performed at [facility];[address] | | LAB | | | [address];[place], [place] | | | | | | [address] | | | | + + + [...] CITY;[address] | | | | | | [address] [facility];[place], [place] | | | | | | [address] | | | | + + + [...] EXTERNAL | | | | performed at [facility];[address] | | LAB | | | | [address];[place] | | | | | | [address] | | | | + + + + + + | RED CELL | 3.67 (L)Comment: Testing | 3.70 - 5.10 | EXTERNAL | | | COUNT | performed at [facility];888 | M/uL | LAB | | | | [address];[place] | | | | | | [address] | | | | + + + + + + | Hgb | 13.0Comment: Testing | 11.3 - 15.5 | EXTERNAL | | | | performed at [facility];888 | g/dL | LAB | | | | [address];[place] | | | | | | [address] | | | | + + + + + + | Hematocrit, | 38.3Comment: Testing | 34.0 - 46.0 % | EXTERNAL | | | POC | performed at [facility];[address] | | LAB | | | | [address];[place] | | | | | | [address] | | | | + + + + + + | MCV | 104.3 (H)Comment: | 80.0 - 100.0 fl | EXTERNAL | | | | Testing performed at | | LAB | | | | [facility];[address];[place] [address] | | | | + + + + + + | MCH | 35.4 (H)Comment: Testing | 27.0 - 34.0 pg | EXTERNAL | | | | performed at [facility];[address] | | LAB | | | | [address];[place] | | | | | | [address] | | | | + + + + + + | MCHC | 33.9Comment: Testing | 32.0 - 35.5 | EXTERNAL | | | | performed at [facility];888 | g/dL | LAB | | | | [address];[place] | | | | | | [address] | | | | + + + + + + | RDW-CV | 48.1Comment: Testing | 37 - 53 fl | EXTERNAL | | | | performed at [facility];[address] | | LAB | | | | [address];[place] | | | | | | [address] | | | | + + + + + + | Platelet | 157Comment: Testing | 150 - 400 K/uL | EXTERNAL | | | Count | performed at [facility];[address] | | LAB | | | Plasma | [address];[place] | | | | | | [address] | | | | + + + + + + | MPV | 9.3Comment: Testing | fl | EXTERNAL | | | | performed at [facility];[address] | | LAB | | | | [address];[place] | | | | | | [address] | | | | + + + + + + | Differentia | AUTOMATEDComment: | | EXTERNAL | | | l Type | Testing performed at | | LAB | | | | [facility];[address];[place] [address] | | | | + + + + + + | % Segmented | 55.8Comment: Testing | % | EXTERNAL | | | | performed at [facility];[address] | | LAB | | | Neutrophils | [address];[place] | | | | | | [address] | | | | + + + + + + | % | 35.8Comment: Testing | % | EXTERNAL | | | Lymphocytes | performed at [facility];[address] | | LAB | | | | [address];[place] | | | | | | [address] | | | | + + + + + + | % Monocytes | 6.0Comment: Testing | % | EXTERNAL | | | | performed at [facility];[address] | | LAB | | | | [address];[place] | | | | | | [address] | | | | + + + + + + | % | 1.9Comment: Testing | % | EXTERNAL | | | Eosinophils | performed at [facility];[address] | | LAB | | | | [address];[place] | | | | | | [address] | | | | + + + + + + | % Basophils | 0.5Comment: Testing | % | EXTERNAL | | | | performed at [facility];[address] | | LAB | | | | [address];[place] | | | | | | [address] | | | | + + + + + + | Absolute | 2.8Comment: Testing | 1.9 - 7.4 K/uL | EXTERNAL | | | Segmented | performed at [facility];[address] | | LAB | | | Neutrophils | [address];[place] | | | | | | [address] | | | | + + + + + + | Absolute | 1.8Comment: Testing | 1.0 - 3.9 K/uL | EXTERNAL | | | Lymphocytes | performed at [facility];[address] | | LAB | | | | [address];[place] | | | | | | [address] | | | | + + + + + + | Absolute | 0.3Comment: Testing | 0 - 0.8 K/uL | EXTERNAL | | | Monocytes | performed at [facility];[address] | | LAB | | | | [address];[place] | | | | | | [address] | | | | + + + + + + | Absolute | 0.1Comment: Testing | 0 - 0.5 K/uL | EXTERNAL | | | Eosinophils | performed at [facility];[address] | | LAB | | | | [address];[place] | | | | | | [address] | | | | + + + + + + | Absolute | 0.0Comment: Testing | 0 - 0.1 K/uL | EXTERNAL | | | Basophils | performed at [facility];[address] | | LAB | | | | [address];[place] | | | | | | [address] | | | | + + + [...] | | | QUALITATIVE | performed at [facility];[address] | | LAB | | | | [address];[place], [place] | | | | | | [address] | | | | + + + [...] EXTERNAL | | | | performed at [facility];888 | mmol/L | LAB | | | | [address];[place] | | | | | | [address] | | | | + + + + + + | K | 3.3 (L)Comment: Testing | 3.5 - 4.9 | EXTERNAL | | | | performed at [facility];888 | mmol/L | LAB | | | | [address];[place] | | | | | | [address] | | | | + + + + + + | Cl | 99Comment: Testing | 99 - 109 mmol/L | EXTERNAL | | | | performed at [facility];[address] | | LAB | | | | [address];[place] | | | | | | [address] | | | | + + + + + + | CO2 | 29Comment: Testing | 23 - 32 mmol/L | EXTERNAL | | | | performed at [facility];[address] | | LAB | | | | [address];[place] | | | | | | [address] | | | | + + + + + + | Anion Gap | 13Comment: Testing | 5 - 20 mmol/L | EXTERNAL | | | | performed at [facility];[address] | | LAB | | | | [address];[place] | | | | | | [address] | | | | + + + + + + | Glucose, | 92Comment: Testing | 65 - 99 mg/dL | EXTERNAL | | | Fasting | performed at [facility];[address] | | LAB | | | | [address];[place] | | | | | | [address] | | | | + + + + + + | BUN | 30 (H)Comment: Testing | 8 - 25 mg/dL | EXTERNAL | | | | performed at [facility];[address] | | LAB | | | | [address];[place] | | | | | | [address] | | | | + + + + + + | Creatinine | 7.21 (H)Comment: Testing | 0.50 - 1.00 | EXTERNAL | | | | performed at [facility];888 | mg/dL | LAB | | | | [address];[place] | | | | | | [address] | | | | + + + + + + | BUN/Creatin | 4Comment: Testing | | EXTERNAL | | | ine Ratio | performed at [facility];[address] | | LAB | | | | [address];[place] | | | | | | [address] | | | | + + + + + + | Calcium | 8.3 (L)Comment: NOTE NEW | 8.5 - 10.5 | EXTERNAL | | | | REFERENCE RANGETesting | mg/dL | LAB | | | | performed at [facility];[address] | | | | | | [address];[place] | | | | | | [address] | | | | + + + [...] [place] | | | | | | [address] | | | | + + + [...]
--- OUTSIDE RECORDS SUMMARY | ~2019-02-17 | XMS | Encounter Summary ---
Demographics + + + | Address | [address] | | | [place] [address] | + + + | Home Phone [...] | | | | | [place] [phone] | | + + + + + | Thania Mallory | ECON | [address] | | | | | [place] [phone] | | + + + + + | Deidra Weldon | ECON | [address] | | | | | [place] | | | | | [address] | | + + + + + Care Team Providers + +------+ + | Care Roving Inspector Name | Role | Phone | [...] [address] | | | | | | [place], [place] | | | | | | [address] | | | +--------+ + + + [...] Denise | | | | | | [place], [place] | | | | | | [address] | | | | | | [phone] | | | | | | | | +--------+ + + + + documented as of this encounter Visit [facility]oses [facility]"
--- OUTSIDE RECORDS SUMMARY | ~2019-02-17 | XMS | Encounter Summary ---
Demographics + + + | Address | [address] | | | [place] [address] | + + + | Home Phone [...] | | | | | [place] [address] | | + + + + + | Thania Mallory | ECON | [address] | | | | | [place] [address] | | + + + + + | Deidra Weldon | ECON | [address] | | | | | [place] | | | | | [address] | | + + + + + Care Team Providers + +------+ + | Care Registration Specialist Name | Role | Phone | [...] Everywher | | | | [facility] | [address] | Query) | | | | Rd [place], [place] | [place], [place] | | | | | [address] | [address] | | | | | [phone] | [phone] | | | | | | | [...] [place] | | | | | | [address] | | | | | | [phone] | | | | | | | | +--------+ + + + + documented as of this encounter Visit Diagnoses Not on filedocumented in this encounter"
--- OUTSIDE RECORDS SUMMARY | ~2019-02-17 | XMS | Encounter Summary ---
Demographics + + + | Address | [address] | | | [place] [address] | + + + | Home Phone [...] | | | | | [place] [address] | | + + + + + | Thania Mallory | ECON | [address] | | | | | [place] [address] | | + + + + + | Deidra Weldon | ECON | [address] | | | | | [place] | | | | | [address] | | + + + + + Care Team Providers + +------+ + | Care Arabic Translator Name | Role | Phone | + +------+ + | Jonathan Alonso MD | PCP | | + +------+ + Encounter Details +--------+ + + + + | Date | Type | Department | Care Team | Description | +--------+ + + + + | 01/20/ | Hospital | Radiology at [facility] | | | | 2014 | Encounter | [address] | | | | | | Mailcode: [id number] | | | | | | [place] | | | | | | [place], [place] | | | | | | [address] | | | | | | [phone] | | | +--------+ + + + [...] Correarobina | | | | | | [place], [place] | | | | | | [address] | | | | | | [phone] | | | | | | | [...] + +---------+ + + | [facility] DEPARTMENT OF | | | [...]
--- OUTSIDE RECORDS SUMMARY | ~2019-02-17 | XMS | Encounter Summary ---
Demographics + + + | Address | [address] | | | [place] [address] | + + + | Home Phone [...] | Author | [facility] | | | and Josephana | + + + | Organization | [facility] | | | and Josephana | + [...] Providers + +------+ + | Care Systems Software Specialist Name | Role | Phone | [...] NEPHROLOGY [address] | MD [address] | (Asymptomatic) | | | | [address] | [address] [place] | | | | | [place], [place] | [place] [address] | | | | | [address] | [phone] | | | | | [phone] | | | +--------+ + + + [...] 3:01 PM PDTHemodialysis progress note e-faxed to [facility], Lianna Joy MD, [facility] Renal Transplant Clinic on 11/29/13.Electronical ly [...] 2012. Access: R chest catheter. Re-referred to [facility] transplant in Oct 2013 by pediatric oncologist. Peritonitis, dialysis-associated (HCC) 07/29/2013 Note Last Updated: [...] had any infectious complication to date. -per [facility] transplant, AVF is not recommended at [...] living donor. Pt has been referred to [facility] in [place] [address] Joy. -followed up with [facility] Lianna Joy, [facility] Pediatric Nephrology [facility] Renal transplant documented in this encounter [...] [place] | | | | | | [place] [address] | | | | | | [phone] | | | | | | | [...]
--- OUTSIDE RECORDS SUMMARY | ~2019-02-17 | XMS | Encounter Summary ---
Demographics + + + | Address | [address] | | | [place] [address] | + + + | Home Phone [...] | | | | | [place] [address] | | + + + + + | Thania Mallory | ECON | [address] | | | | | [place] [address] | | + + + + + | Deidra Weldon | ECON | [address] | | | | | [place] | | | | | [address] | | + + + + + Care Team Providers + +------+ + | Care Market Survey Representative Name | Role | Phone | [...] Transplant | | | | ANNALISA [place] | [address] | Evaluation | | | | Rd [place], [place] | [place], [place] | | | | | [address] | [address] | | | | | [phone] | | | +--------+ + + + [...] | | | | | [place] | | | | | | [address] | | | | | | [phone] | | | | | | | | +--------+ + + + + documented as of this encounter Visit Diagnoses Not on filedocumented in this encounter"
--- OUTSIDE RECORDS SUMMARY | ~2019-02-17 | XMS | Encounter Summary ---
Demographics + + + | Address | [address] | | | [place] [address] | + + + | Home Phone [...] + | Author | [facility] | | | and Josephana | + + + | Organization | [facility] | | [...] Providers + +------+ + | Care Manager Roofing Name | Role | Phone | + [...] NEPHROLOGY [address] | MD [address] [place] | (Asymptomatic) | | | | [address] | [address] [place] | | | | | [place], [place] | [place] [address] | | | | | [address] | [phone] | | | | | [phone] | | | +--------+ + + + [...] AM PDTHEMO progress note manually faxed to [facility] [place], e-faxed to Lianna CHAVISSU Pediatric Nephrology on 08/04 03/19. Daniela Marquez M D - 07/29/2013 1:57 PM PDT Comprehensive Dialysis Monthly Note Date of visit: 07/29/2013 Dialysis Clinic: [facility] [...] Date Noted ESRD (end stage renal disease) ([facility]) Priority: High Note Last Updated: 07/29/2013 [...] has been referred t o [facility]. 9. Peritonitis, MSSA. On Keflex. [facility] Lianna Joy, [facility] Pediatric Nephrology documented in this encounter Plan [...] [address] | | | | | | [place] [address] | | | | | | [phone] | | | | | | | | +--------+---------+ + + + documented as of this encounter Visit Diagnoses + + | Diagnosis | + + | ESRD (end stage renal disease) (HCC) - Primary End stage renal disease | + + | Anemia in ESRD (end-stage renal disease) ([facility]) Anemia in chronic kidney disease | + + | Secondary hyperparathyroidism (HCC) Secondary hyperparathyroidism (of renal origin) | + + | Peritonitis, dialysis-associated, initial encounter (HCC) | + + documented in this encounter"
--- OUTSIDE RECORDS SUMMARY | ~2019-02-17 | XMS | Encounter Summary ---
Demographics + + + | Address | [address] | | | [place] [address] | + + + | Home Phone [...] [facility] | | | and Josephana | + + + | Organization | [facility] [...] Providers + +------+ + | Care Supervisor [place] Name | Role | Phone | + [...] [address] [place] | [place] [address] | to return call to | | | | [address] | [phone] | complete intake | | | | [address] | | quest.) | | | | [phone] | | | +--------+ + + + [...] [place] | | | | | | [place] [address] | | | | | | [phone] | | | | | | | | +--------+---------+ + + + documented as of this encounter Visit Diagnoses Not on filedocumented in this encounter"
--- OUTSIDE RECORDS SUMMARY | ~2019-02-17 | XMS | Encounter Summary ---
Demographics + + + | Address | [address] | | | [place] [address] | + + + | Home Phone [...] | | | | | [place] [address] | | + + + + + | Thania Mallory | ECON | [address] | | | | | [place] [address] | | + + + + + | Deidra Weldon | ECON | [address] | | | | | [place] | | | | | [address] | | + + + + + Care Team Providers + +------+ + | Care Preassembler Printed Circuit Board Name | Role | Phone | [...] | Nephrology at | MD Emanuel [address] [facility] [address] [facility] | | | | | [place] | [facility] | | | | | [facility] | [place], [place] | | | | | [address] | [address] | | | | | Mailcode: [id number] | [phone] | | | | | [place] | | | | | | [place], [place] | | | | | | [address] | | | | | | [phone] | | | +--------+ + + + [...] Denise | | | | | | [place] | | | | | | [address] | | | | | | [phone] | | | | | | | | +--------+ + + + + documented as of this encounter Visit Diagnoses Not on filedocumented in this encounter"
--- OUTSIDE RECORDS SUMMARY | ~2019-02-17 | XMS | Encounter Summary ---
Demographics + + + | Address | [address] | | | [place] [address] | + + + | Home Phone [...] | Author | [facility] | | | and Josephana | + + + | Organization | [facility] | [...] NEPHROLOGY [address] | M, DO [address] [place] | | | | | [address] | [place] | | | | | [place], [place] | [place], [place] | | | | | [address] | [address] | | | | | [phone] | | | +--------+ + + + [...] PM PDTManually faxed demographic sheet, copy of [employer] cards, progress note from 04/28/14 and 02/24/14 [...] [place] | | | | | | [place] [address] | | | | | | [phone] | | | | | | | | +--------+---------+ + + + documented as of this encounter Visit Diagnoses Not on filedocumented in this encounter"
--- OUTSIDE RECORDS SUMMARY | ~2019-02-17 | XMS | Encounter Summary ---
Demographics + + + | Address | [address] | | | [place] [address] | + + + | Home Phone [...] | Author | [facility] | | | and Josephana | + + + | Organization | [facility] | [...] Providers + +------+ + | Care Marine Machinist Name | Role | Phone | + +------+ + PCP | Unavailable | + +------+ + Encounter Details +--------+ + + + + | Date | Type | Department | Care Team | Description | +--------+ + + + + | 08/31/ | Hospital | [facility] | Conversion | ESRD (end stage | | 2016 | Encounter | CENTER CV INTRA OP | Transaction, | renal disease) (HCC) | | | | [address] | Provider Unknown | | | | | [place], [place] | | | | | | [address] | (Fax) | | | | | [phone] | Doyle Diaz MD | | +--------+ [...] E | | | | | | [place] [address] | | | | | | [phone] | | | | | | | [...] | 2. IR ANGIOPLASTY AV FISTULA VENOUS GLOBAL ACCOUNT MANAGER: Doyle Diaz MD | | | CONSENT: [...] | | Over a guidewire, a 4 Citizen [place] angled catheter was advanced and | | [...] | ANGIOPLASTY: Over a guidewire, a 6 Citizen [place] sheath was advanced | | | and [...] IR ANGIOPLASTY AV | | FISTULA VENOUS GLOBAL ACCOUNT MANAGER: Doyle Diaz MD CONSENT: The risks, [...] micropuncture needle. Over a guidewire, a 4 [place] angled catheter was | | advanced and [...] appears patent. ANGIOPLASTY:Over a guidewire, a 6 [place] sheath was | | advanced and positioned [...] AM | |Over a guidewire, a 6 Citizen [place] sheath was advanced and positioned into the [...] | 2. IR ANGIOPLASTY AV FISTULA VENOUS GLOBAL ACCOUNT MANAGER: Doyle Diaz MD | | | CONSENT: [...] | | Over a guidewire, a 4 Citizen [place] angled catheter was advanced and | | [...] | ANGIOPLASTY: Over a guidewire, a 6 Citizen [place] sheath was advanced | | | and [...] IR ANGIOPLASTY AV | | FISTULA VENOUS GLOBAL ACCOUNT MANAGER: Doyle Diaz MD CONSENT: The risks, [...] micropuncture needle. Over a guidewire, a 4 Citizen [place] angled catheter was | | advanced and [...] appears patent. ANGIOPLASTY:Over a guidewire, a 6 Citizen [place] sheath was | | advanced and positioned [...] AM | |Over a guidewire, a 6 Citizen [place] sheath was advanced and positioned into the [...] EXTERNAL | | | | performed at [facility];888 | mmol/L | LAB | | | | [address]ica [address];[place], [place] | | | | | | [address] | | | | + + + [...]
--- OUTSIDE RECORDS SUMMARY | ~2019-02-17 | XMS | Encounter Summary ---
Demographics + + + | Address | [address] | | | [place] [address] | + + + | Home Phone [...] | | | | | [place] [address] | | + + + + + | Thania Mallory | ECON | [address] | | | | | [place] [address] | | + + + + + | Deidra Weldon | ECON | [address] | | | | | [place] | | | | | [address] | | + + + + + Care Team Providers + +------+ + | Care Small Machine Bindery Operator Name | Role | Phone | [...] Transplant | | | | ANNALISA Griffin [place] | [address] | Evaluation | | | | Rd [place], [place] | [place], [place] | | | | | [address] | [address] | | | | | [phone] | | | +--------+ + + + [...] Denise | | | | | | [place] | | | | | | [address] | | | | | | [phone] | | | | | | | | +--------+ + + + + documented as of this encounter Visit Diagnoses Not on filedocumented in this encounter"
--- OUTSIDE RECORDS SUMMARY | ~2019-02-17 | XMS | Encounter Summary ---
Demographics + + + | Address | [address] | | | [place] [address] [...] + | Author | [facility] | | | and Josephana | + + + | Organization | [facility] [...] + + | 07/09/ | Hospital | [facility] | Colten Hutchins MD | AV fistula | | 2017 | Encounter | [facility] | [address] | thrombosis, initial | | | | CLINICAL DECISION | [place] | encounter ([facility]) | | | | [address] | [address] | | | | | [place], [place] | | | | | | [address] | | | | | | [phone] | | | +--------+ + + + [...] 07/09/161821 Date of Service: 07/09/161820 Status: Signed Internal Grinder: Catherine Lenz, RN (Registered Nurse) Patient stable [...] [place] | | | | | | [place] [address] | | | | | | [phone] | | | | | | | [...] At | + + + | Successful jain of flow within the left brachiocephalic | [...] | The microaccesses were exchanged to 6 Trinidadian sheaths. Patient was | | | heparinized. [...] | | stent. Intraprocedural fistulogram was demonstrated jain of | | | flow but severe [...] access. The microaccesses were exchanged to 6 Trinid[place] sheaths. Patient was | | heparinized. Via [...] stent. 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 IMPRESSION: Successful jain of flow within the | | left [...] At | + + + | Successful jain of flow within the left brachiocephalic | [...] | The microaccesses were exchanged to 6 Trin[place] sheaths. Patient was | | | heparinized. [...] | | stent. Intraprocedural fistulogram was demonstrated jain of | | | flow but severe [...] access. The microaccesses were exchanged to 6 Trin[place] sheaths. Patient was | | heparinized. Via [...] stent. 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 IMPRESSION: Successful jain of flow within the | | left [...] | | | Patient | performed at [facility];[address] | | LAB | | | | [address]ous[facility];[place], [place] | | | | | | [address] [...] | | | | | | Yousif Sandip;[place], [place] | | | | | | [address] | | | | + + + [...] | | | Estimate | performed at [facility] | | LAB | | | | [address]ica [address]pe[address];[place] | | | | | | [address] | | | | + + + [...] | | | | | | at [facility];[address] | | | | | | Sandip;[place] [address] | | | | + + + [...]
--- OUTSIDE RECORDS SUMMARY | ~2019-02-17 | XMS | Encounter Summary ---
Demographics + + + | Address | [address] | | | [place] [address] | + + + | Home Phone [...] | | | | | [place] [address] | | + + + + + | Thania Mallory | ECON | [address] | | | | | [place] [address] | | + + + + + | Deidra Weldon | ECON | [address] | | | | | [place] | | | | | [address] | | + + + + + Care Team Providers + +------+ + | Care Senior Loan Officer Name | Role | Phone | [...] | Summary | | | | [address] [facility] | [facility] | | | | | Rd [place], [place] | [place] | | | | | [address] | [address] | | | | | [phone] | | | +--------+ + + + [...] [facility] | | | | | | [address] | | | | | | [phone] | | | | | | | | +--------+ + + + + documented as of this encounter Visit Diagnoses Not on filedocumented in this encounter"
--- OUTSIDE RECORDS SUMMARY | ~2019-02-17 | XMS | Encounter Summary ---
Demographics + + + | Address | [address] | | | [place] [address] | + + + | Home Phone [...] | Author | [facility] | | | and Josephana | + + + | Organization | [facility] | [...] Providers + +------+ + | Care Licensed Social Worker Name | Role | Phone [...] stage renal | [address] | [address] [place] [address] | | | | | disease) | Shun Griffin | [place] | | | | | ([facility]) | [address] | [address] [place] | | | | | Anemia in | [place], [place] | [place] | | | | | ESRD | [address] | [address] Phone: | | | | | (end-stage | Phone: | [phone] | | | | | renal | [phone] | Fax: | | | | | disease) | Fax: | [phone] | | | | | ([facility]) | [phone] | | | | | | Procedures [...] | | [address] | [place], [address] | (Primary Dx) | | | | [place], [place] | [place], [place] | | | | | [address] | [address] | | | | | [phone] | | | +--------+ + + + [...] [place] | | | | | | [place] [address] | | | | | | [phone] | | | | | | | | +--------+---------+ + + + documented as of this encounter Visit Diagnoses + + | Diagnosis | + + | ESRD (end stage renal disease) (HCC) - Primary End stage renal disease | + + documented in this encounter"
--- OUTSIDE RECORDS SUMMARY | ~2019-02-17 | XMS | Encounter Summary ---
Demographics + + + | Address | [address] | | | [place] [address] | + + + | Home Phone [...] Author | [facility] | | | and [place]ana | + + + | Organization | [facility] | | [...] Providers + +------+ + | Care Metal Spray Operator Name | Role | Phone | [...] | | | | 21) End | [place], [place] | [place], [place] | | | | | stage renal | [address] | [address] Phone: | | | | | disease | Phone: | [phone] | | | | | ([facility]) | [phone] | Fax: | | | | | Infection | Fax: | [phone] | | | | | and | [phone] | | | | | | inflammatory [...] | | [address] | [place], [address] | (Primary Dx); | | | | [place], [place] | [place], [place] | Anemia in ESRD | | | | [address] | [address] | (end-stage renal | | | | [phone] | | disease) ([facility] [...] that she is working very closely with [facility] for 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 [...] excellent candidate from her visits here at [facility]. 6. Anemia--Will need to hold the EPO until the Hb is < 11.0 g/dl, while rechecking the Hb weekly. Plan: 1. Will continue to follow her PTH quarterly without Hectorol Rx. 2. Hold the EPO as above, until the Hb is < 11.0 g/dl. 3. Will try to connect with her Transplant Photographic Machine Operator at [facility], about re lative timeline of her allograft date. 4. She will follow with Dr. Ibarra in 2 weeks. CC: [place] Fina Joy MD, Renal Transplant Clinic, [facility] documented in thi s encounter Plan of Treatment +--------+---------+ + + + | Date | Type | Specialty | Care Team | Description | +--------+---------+ + + + | 03/05/ | Office | Pulmonology | Denny Alexander | | | 2018 | Visit | | Deny Briggs MD [address] | | | | | | [address] [place] | | | | | | [place] [address] | | | | | | [phone] | | | | | | | [...]
--- OUTSIDE RECORDS SUMMARY | ~2019-02-17 | XMS | Encounter Summary ---
Demographics + + + | Address | [address] | | | [place] [address] | + + + | Home Phone [...] | | | | | [place] [address] | | + + + + + | Thania Mallory | ECON | [address] | | | | | [place] [address] | | + + + + + | Deidra Weldon | ECON | [address] | | | | | [place] | | | | | [address] | | + + + + + [...] Shun | | | | | ANNALISA [facility] | [facility] | | | | | Rd [place], [place] | [place], [place] | | | | | [address] | [address] | | | | | [phone] | | | +--------+ + + + [...] [facility] | | | | | | [address] | | | | | | [phone] | | | | | | | | +--------+ + + + + documented as of this encounter Visit Diagnoses Not on filedocumented in this encounter"
--- OUTSIDE RECORDS SUMMARY | ~2019-02-17 | XMS | Encounter Summary ---
Demographics + + + | Address | [address] | | | [place] [address] | + + + | Home Phone [...] Author | [facility] | | | and Josephana | + + + | Organization | [facility] [...] NEPHROLOGY [address] | M, DO [address] [place] | | | | | [address] | [place], [address] | | | | | [place], [place] | [place], [place] | | | | | [address] | [address] | | | | | [phone] | | | +--------+ + + + [...] [place] | | | | | | [place] [address] | | | | | | [phone] | | | | | | | | +--------+---------+ + + + documented as of this encounter Visit Diagnoses Not on filedocumented in this encounter"
--- OUTSIDE RECORDS SUMMARY | ~2019-02-17 | XMS | Encounter Summary ---
Demographics + + + | Address | [address] | | | [place] [address] | + + + | Home Phone [...] | | | | | [place] [address] | | + + + + + | Thania Mallory | ECON | [address] | | | | | [place] [address] | | + + + + + | Deidra Weldon | ECON | [address] | | | | | [place] | | | | | [address] | | + + + + + [...] Pool Shun | | | | | [facility] | [facility] | | | | | Rd [place], [place] | [place], [place] | | | | | [address] | [address] | | | | | [phone] | | | +--------+ + + + [...] Denise | | | | | | [place] | | | | | | [address] | | | | | | [phone] | | | | | | | | +--------+ + + + + documented as of this encounter Visit Diagnoses Not on filedocumented in this encounter"
--- OUTSIDE RECORDS SUMMARY | ~2019-02-17 | XMS | Encounter Summary ---
Demographics + + + | Address | [address] | | | [place] [address] | + + + | Home Phone [...] | | | | | [place] [address] | | + + + + + | Thania Mallory | ECON | [address] | | | | | [place] [address] | | + + + + + | Deidra Weldon | ECON | [address] | | | | | [place] | | | | | [address] | | + + + + + Care Team Providers + +------+ + | Care Wood Window And Door Craftsman Name | Role | Phone | [...] | | | | Keven Drew | [place], [place] | | | | | | [place] | [address] | | | | | | [place] | Phone: | | | | | | [address] | [phone] | | | | | | Phone: | | | | | | | [phone] | | | | | | | Fax: | | | | | | | [phone] | | +--------+--------+ + + + + Encounter Details +--------+---------+ + + + | Date | Type | Department | Care Team | Description | +--------+---------+ + + + | 11/16/ | Office | Specialty Clinics | Sudhakar Joy | 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 Have your friend call Brittney about [phone] Sudhakar Joy MD documented in this encounter [...] [address] Mail code [id number] [place], [place] [id number] documented in this encounter Plan of Treatment +--------+ + + + + | Date | Type | Specialty | Care Team | Description | +--------+ + + + + | 05/04/ | Hospital | Adult Acute Care | El Starr MD | | | 2022 | Encounter | | [address] | | | | | | [place], [place] | | | | | | [address] | | | | | | [phone] | | | | | | | [...]
--- OUTSIDE RECORDS SUMMARY | ~2019-02-17 | XMS | Encounter Summary ---
Demographics + + + | Address | [address] | | | [place] [address] | + + + | Home Phone [...] | Author | [facility] | | | and Josephana | + + + | Organization | [facility] | | [...] Team Providers + +------+ + | Care Jd Edwards Name | Role | Phone | + [...] | NEPHROLOGY [address] | [address] | | | | | [address] | [address] [place] | | | | | [place], [place] | [place] [address] | | | | | [address] | [phone] | | | | | [phone] | | | +--------+--------+ + + + [...] | | | | | [place] [address] | | | | | | [phone] | | | | | | | | +--------+---------+ + + + documented as of this encounter Visit Diagnoses Not on filedocumented in this encounter"
--- OUTSIDE RECORDS SUMMARY | ~2019-02-17 | XMS | Encounter Summary ---
Demographics + + + | Address | [address] | | | [place] [address] | + + + | Home Phone [...] Author | [facility] | | | and Josephana | + + + | Organization | [facility] [...] Providers + +------+ + | Care Jewelry Facer Name | Role | Phone | + +------+ + PCP | Unavailable | + +------+ + Encounter Details +--------+ + + + + | Date | Type | Department | Care Team | Description | +--------+ + + + + | 07/10/ | Hospital | [facility] | | | | 2008 - | Encounter | MED CTR OP REHAB | | | | | | [address] | | | | 08/03/ | | [place] [address] | | | | 2008 | | [phone] | | | +--------+ + + + [...] [place] | | | | | | [place] [address] | | | | | | [phone] | | | | | | | | +--------+---------+ + + + documented as of this encounter Visit Diagnoses Not on filedocumented in this encounter"
--- OUTSIDE RECORDS SUMMARY | ~2019-02-17 | XMS | Encounter Summary ---
Demographics + + + | Address | [address] | | | [place] [address] | + + + | Home Phone [...] [facility] | | | and Josephana | + + + | Organization | [facility] [...] Providers + +------+ + | Care Oracle Ascp Consultant Name | Role | Phone | [...] | stage renal | [address] | [address] [place] [address] | | | | | disease) | Shun Griffin | [place] | | | | | ([facility]) | [address] | [address] [place] | | | | | Anemia in | [place], [place] | [place] | | | | | ESRD | [address] | [address] Phone: | | | | | (end-stage | Phone: | [phone] | | | | | renal | [phone] | Fax: | | | | | disease) | Fax: | [phone] | | | | | ([facility]) | [phone] | | | | | | Procedures [...] | | [address] | [place] | (Primary Dx) | | | | [place], [place] | [place] | | | | | [address] | [address] | | | | | [phone] | | | +--------+ + + + [...] uding the charge nurse, staff nurses, PCT's, merchant mill utility worker, dietitian myself she fails to heed [...] today in Plan: 1. Will continue to christian counselor her about her high risk for cardiovascular morbidity and compl ications given her lack of full compliance with her treatment. 2. The renal SQL REPORT ANALYST has been attempting to reach her. [...] DAV[place]SON | | | | | | [place] [address] | | | | | | [phone] | | | | | | | | +--------+---------+ + + + documented as of this encounter Visit Diagnoses + + | Diagnosis | + + | ESRD (end stage renal disease) (HCC) - Primary End stage renal disease | + + documented in this encounter"
--- OUTSIDE RECORDS SUMMARY | ~2019-02-17 | XMS | Encounter Summary ---
Demographics + + + | Address | [address] | | | [place] [address] | + + + | Home Phone [...] | | | | | [place] [address] | | + + + + + | Thania Mallory | ECON | [address] | | | | | [place] [address] | | + + + + + | Deidra Weldon | ECON | [address] | | | | | [place] | | | | | [address] | | + + + + + Care Team Providers + +------+ + | Care Gaming Table Operator Name | Role | Phone [...] pt's living/support | | | | Rd [place], [place] | [place], [place] | situation) | | | | [address] | [address] | | | | | [phone] | | | +--------+ + + + [...] Denise | | | | | | [place] | | | | | | [address] | | | | | | [phone] | | | | | | | | +--------+ + + + + documented as of this encounter Visit Diagnoses Not on filedocumented in this encounter"
--- OUTSIDE RECORDS SUMMARY | ~2019-02-17 | XMS | Encounter Summary ---
Demographics + + + | Address | [address] | | | [place] [address] | + + + | Home Phone [...] | | | | | [place] [address] | | + + + + + | Thania Mallory | ECON | [address] | | | | | [place] [address] | | + + + + + | Deidra Weldon | ECON | [address] | | | | | [place] | | | | | [address] | | + + + + + Care Team Providers + +------+ + | Care Senior Manager Asset Protection Name | Role | Phone | + [...] Elias Elizondo | | | | | ([facility]) | [address] | Rd [place], | | | | | Allergic | [place], [place] | [place] | | | | | purpura | [address] | [address] | | | | | ([facility]) | Phone: | Phone: | | | | | | [phone] | [phone] | | | | | | Fax: | Fax: | | | | | | [phone] | [phone] | +--------+--------+ + + + + Encounter Details +--------+ + + + + | Date | Type | Department | Care Team | Description | +--------+ + + + + | 12/20/ | Hospital | Radiology at [facility] | | | | 2012 | Encounter | [address] | | | | | | Mailcode: [id number] | | | | | | [place] | | | | | | [place], [place] | | | | | | [address] | | | | | | [phone] | | | +--------+ + + + [...] [place] | | | | | | [address] | | | | | | [phone] | | | | | | | [...] | | + +---------+ + + | [facility] DEPARTMENT OF | | | | | RADIOLOGY | | | | + +---------+ + + documented in this encounter Visit Diagnoses + + | Diagnosis | + + | 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
--- OUTSIDE RECORDS SUMMARY | ~2019-02-17 | XMS | Encounter Summary ---
Demographics + + + | Address | [address] | | | [place] [address] | + + + | Home Phone [...] | Author | [facility] | | | and [place]ana | + + + | Organization | [facility] [...] Providers + +------+ + | Care Chief Petroleum Engineer Name | Role | Phone | [...] | NEPHROLOGY [address] | [address] | | | | | [address] | [address] [place] | | | | | [place], [place] | [place] [address] | | | | | [address] | [phone] | | | | | [phone] | | | +--------+ + + + [...] form rec eived from Navin Casanova assistant purchasing manager, [facility] regarding housing, do s: 12/08/16. Sent to [...] DAV[place]SON | | | | | | [place] [address] | | | | | | [phone] | | | | | | | | +--------+---------+ + + + documented as of this encounter Visit Diagnoses Not on filedocumented in this encounter"
--- OUTSIDE RECORDS SUMMARY | ~2019-02-17 | XMS | Encounter Summary ---
Demographics + + + | Address | [address] | | | [place] [address] | + + + | Home Phone [...] Author | [facility] | | | and [place]ana | + + + | Organization | [facility] | | | [...] Team Providers + +------+ + | Care Supplier Diversity Director Name | Role | Phone | [...] | | [address] | [place] | | | | | [place], [place] | [place], [place] | | | | | [address] | [address] | | | | | [phone] | | | +--------+--------+ + + + [...] [place] | | | | | | [place] [address] | | | | | | [phone] | | | | | | | | +--------+---------+ + + + documented as of this encounter Visit Diagnoses Not on filedocumented in this encounter"
--- OUTSIDE RECORDS SUMMARY | ~2019-02-17 | XMS | Encounter Summary ---
Demographics + + + | Address | [address] | | | [place] [address] | + + + | Home Phone [...] | | | | | [place] [address] | | + + + + + | Thanai Mallory | ECON | [address] | | | | | [place] [address] | | + + + + + | Deidra Weldon | ECON | [address] | | | | | [place] | | | | | [address] | | + + + + + Care Team Providers + +------+ + | Care Teleradiologist Name | Role | Phone | + [...] attempt(s) to | | | | Rd [place], [place] | [place], [place] | contact pt re move | | | | [address] | [address] | and new PAF as | | | | [phone] | | listed) | +--------+ + + [...] Denise | | | | | | [place], [place] | | | | | | [address] | | | | | | [phone] | | | | | | | | +--------+ + + + + documented as of this encounter Visit Diagnoses Not on filedocumented in this encounter"
--- OUTSIDE RECORDS SUMMARY | ~2019-02-17 | XMS | Encounter Summary ---
Demographics + + + | Address | [address] | | | [place] [address] | + + + | Home Phone [...] | Author | [facility] | | | and [place]ana | + + + | Organization | [facility] [...] Team Providers + +------+ + | Care Leading Firefighter Name | Role | Phone | + [...] NEPHROLOGY [address] | M, DO [address] | | | | | [address] | [place], [address] | | | | | [place], [place] | [place], [place] | | | | | [address] | [address] | | | | | [phone] | | | +--------+ + + + [...] repeatedly declines. The entire dialysis team including cattle alley worker have had mult iple conversations with [...] to continue to make efforts to counseling aide her about lifestyle modification an d compliance [...] DAV[place] | | | | | | [place] [address] | | | | | | [phone] | | | | | | | | +--------+---------+ + + + documented as of this encounter Visit Diagnoses Not on filedocumented in this encounter"
--- OUTSIDE RECORDS SUMMARY | ~2019-02-17 | XMS | Encounter Summary ---
Demographics + + + | Address | [address] | | | [place] [address] | + + + | Home Phone [...] | | | | | [place] [address] | | + + + + + | Thania Mallory | ECON | [address] | | | | | [place] [address] | | + + + + + | Deidra Weldon | ECON | [address] | | | | | [place] | | | | | [address] | | + + + + + Care Team Providers + +------+ + | Care Set Up And Lay Out Inspector Name | Role | Phone | [...] | | | | | [address] [place], | | | | | | [place] [address] | | | +--------+ + + + [...] Denise | | | | | | [place], [place] | | | | | | [address] | | | | | | [phone] | | | | | | | [...] DANILO - | [address], | [place] [address] | | | IMMUNOGENETICS/TRANS | [address] | | | | [facility] | | | | + + + + + documented in this encounter Visit Diagnoses Not on filedocumented in this encounter"
--- OUTSIDE RECORDS SUMMARY | ~2019-02-17 | XMS | Encounter Summary ---
Demographics + + + | Address | [address] | | | [place] [address] | + + + | Home Phone [...] | | | | | [place] [address] | | + + + + + | Thania Mallory | ECON | [address] | | | | | [place] [address] | | + + + + + | Deidra Weldon | ECON | [address] | | | | | [place] | | | | | [address] | | + + + + + Care Team Providers + +------+ + | Care Territory Supervisor Name | Role | Phone | [...] Transplant | | | | [facility] | [address] | Evaluation | | | | Rd [place], [place] | [place], [place] | (pre-listing | | | | [address] | [address] | pediatric [place] | | | | [phone] | | update) | +--------+ + + [...] Denise | | | | | | [place] | | | | | | [address] | | | | | | [phone] | | | | | | | | +--------+ + + + + documented as of this encounter Visit Diagnoses Not on filedocumented in this encounter"
--- OUTSIDE RECORDS SUMMARY | ~2019-02-17 | XMS | Encounter Summary ---
Demographics + + + | Address | [address] | | | [place] [address] | + + + | Home Phone [...] Author | [facility] | | | and [place]ana | + + + | Organization | [facility] [...] Team Providers + +------+ + | Care Gm Name | Role | Phone | + [...] | | [address] | [place], [address] | (Primary Dx) | | | | [place], [place] | [place], [place] | | | | | [address] | [address] | | | | | [phone] | | | +--------+ + + + [...] of documents of Clinic Attendance here at [facility], with the sand system operator, Elisabeth Quijano RN. Outpatient Prescriptions Marked [...] A&O x3, at this point. 3. [facility] have given her every opportunity to succeed here at the Clinic in [place]. 4. Will recheck her in 2 weeks. : [place] Fina documented in thi s encounter Plan [...] DAV[place]SON | | | | | | [place] [address] | | | | | | [phone] | | | | | | | | +--------+---------+ + + + documented as of this encounter Visit Diagnoses + + | Diagnosis | + + | ESRD (end stage renal disease) (HCC) - Primary End stage renal disease | + + documented in this encounter"
--- OUTSIDE RECORDS SUMMARY | ~2019-02-17 | XMS | Encounter Summary ---
Demographics + + + | Address | [address] | | | [place] [address] | + + + | Home Phone [...] | | | | | [place] [address] | | + + + + + | Thania Mallory | ECON | [address] | | | | | [place] [address] | | + + + + + | Deidra Weldon | ECON | [address] | | | | | [place] | | | | | [address] | | + + + + + Care Team Providers + +------+ + | Care Dyed Yarn Operator Name | Role | Phone | [...] | | | [place], | [place] [address] | | | | | [place] [address] | [phone] | | | | | | | [...] Denise | | | | | | [place], [place] | | | | | | [address] | | | | | | [phone] | | | | | | | | +--------+ + + + + documented as of this encounter Visit Diagnoses Not on filedocumented in this encounter"
--- OUTSIDE RECORDS SUMMARY | ~2019-02-17 | XMS | Encounter Summary ---
Demographics + + + | Address | [address] | | | [place] [address] [...] | Author | [facility] | | | and [place]ana | + + + | Organization | [facility] [...] Providers + +------+ + | Care Auto Haulaway Driver Name | Role | Phone | + +------+ + PCP | Unavailable | + +------+ + Encounter Details +--------+ + + + + | Date | Type | Department | Care Team | Description | +--------+ + + + + | 08/21/ | Hospital | [facility] | Conversion | End stage renal | | 2015 | Encounter | CENTER CV INTRA OP | Transaction, | disease (HCC); | | | | [address] | Provider Unknown | Mechanical | | | | [place], [place] | [phone] | complication of | | | | [address] | | other vascular | | | | [phone] | Darryn Whaley, | device, implant, and | | | | | [address] | graft (HCC) | | | | | AVE [place], [place] | | | | | | [address] | | | | | | | [...] E | | | | | | [place] [address] | | | | | | [phone] | | | | | | | [...] venous anastomosis without incidence. | | | [address]247, [address], 18424, [address] | | + + + + + [...] | | | needle and exchanged for 4-Solomon Islander micropuncture sheath. Initial | | | fistula [...] | | needle and exchanged for 4 [place] Islander short sheath over 0.03, angled | | | Glidewire. Subsequently, Glidewire was exchanged for 0.014, mailman | | | wire over 4 [place] Islander angled glide catheter. Then, 4 mm x [...] micropuncture needle and exchanged | | for 4-[place] Islander micropuncture sheath. Initial fistula pressure was obtained [...] | micropuncture needle and exchanged for 4 [place]er short sheath over 0.03, angled | | Glidewire. Subsequently, Glidewire was exchanged for 0.014, mailman wire over 4 [place] Islander | | angled glide catheter. Then, 4 [...] arterial venous | | anastomosis without incidence. 12261, 27040, 29536, 82752 | | | | | |76549, 76747, [address]322, [address] | | | | | + + [...] venous anastomosis without incidence. | | | [address], [address], [address], [address] | | + + + + + [...] | | | needle and exchanged for 4-Sol[place] Islander micropuncture sheath. Initial | | | fistula [...] | | needle and exchanged for 4 [place]er short sheath over 0.03, angled | | | Glidewire. Subsequently, Glidewire was exchanged for 0.014, mailman | | | wire over 4 [place]er angled glide catheter. Then, 4 mm x [...] micropuncture needle and exchanged | | for 4-[place] Islander micropuncture sheath. Initial fistula pressure was obtained [...] | micropuncture needle and exchanged for 4 [place]er short sheath over 0.03, angled | | Glidewire. Subsequently, Glidewire was exchanged for 0.014, mailman wire over 4 [place]er | | angled glide catheter. Then, 4 [...] arterial venous | | anastomosis without incidence. 78250, 02030, 87496, [address]0749 | | | | | |[address], 449[address], 92574, [address] | | | | | + + documented in this encounter Visit Diagnoses + + | Diagnosis | + + | End stage renal disease (HCC) End stage renal disease | + + | Mechanical complication of other vascular device, implant, and graft | + + documented in this encounter"
--- OUTSIDE RECORDS SUMMARY | ~2019-02-17 | XMS | Encounter Summary ---
Demographics + + + | Address | [address] | | | [place] [address] | + + + | Home Phone [...] | | | | | [place] [address] | | + + + + + | Thania Mallory | ECON | [address] | | | | | [place] [address] | | + + + + + | Deidra Weldon | ECON | [address] | | | | | [place] | | | | | [address] | | + + + + + Care Team Providers + +------+ + | Care Wheat Buyer Name | Role | Phone | [...] | Update | | | | ANNALISA [facility] | [facility] | | | | | Rd [place], [place] | [place], [place] | | | | | [address] | [address] | | | | | [phone] | | | +--------+ + + + [...] Denise | | | | | | [place] | | | | | | [address] | | | | | | [phone] | | | | | | | | +--------+ + + + + documented as of this encounter Visit Diagnoses Not on filedocumented in this encounter"
--- OUTSIDE RECORDS SUMMARY | ~2019-02-17 | XMS | Encounter Summary ---
Demographics + + + | Address | [address] | | | [place] [address] | + + + | Home Phone [...] | | | | | [place] [address] | | + + + + + | Thania Mallory | ECON | [address] | | | | | [place] [address] | | + + + + + | Deidra Weldon | ECON | [address] | | | | | [place] | | | | | [address] | | + + + + + Care Team Providers + +------+ + | Care Unhairer Name | Role | Phone | + [...] (pt | | | | ANNALISA Hoffmann [facility] | [facility] [address] | potential | | | | Rd [place], [place] | [place], [place] | donor/checking in | | | | [address] | [address] | with SW) | | | | [phone] | | | +--------+ + + + [...] [place] | | | | | | [address] | | | | | | [phone] | | | | | | | | +--------+ + + + + documented as of this encounter Visit Diagnoses Not on filedocumented in this encounter"
--- OUTSIDE RECORDS SUMMARY | ~2019-02-17 | XMS | Encounter Summary ---
Demographics + + + | Address | [address] | | | [place] [address] | + + + | Home Phone [...] | [facility] | | | and [place]ana | + + + | Organization | [facility] [...] + +------+ + | Care Linux Unix System Administrator Name | Role | Phone [...] NEPHROLOGY [address] | MD [address] | | | | | [address] | [address] [place] | | | | | [place], [place] | [place] [address] | | | | | [address] | [phone] | | | | | [phone] | | | +--------+ + + + [...] | | | | | | KATHYA [address] | | | | | | [place] [address] | | | | | | [phone] | | | | | | | | +--------+---------+ + + + documented as of this encounter Visit Diagnoses Not on filedocumented in this encounter"
--- OUTSIDE RECORDS SUMMARY | ~2019-02-17 | XMS | Encounter Summary ---
Demographics + + + | Address | [address] | | | [place] [address] | + + + | Home Phone [...] Author | [facility] | | | and [place]ana | + + + | Organization | [facility] | | | [...] Team Providers + +------+ + | Care Volunteer Services Coordinator Name | Role | Phone [...] | | | DEPARTMENT [address] [place] | [address] | | [address] | [place] [address] | | | | | [place], [place] | [phone] | | | | | [address] | | | | | | [phone] | | | +--------+ + + + [...] DAV[place]SON | | | | | | [place] [address] | | | | | | [phone] | | | | | | | | +--------+---------+ + + + documented as of this encounter Visit Diagnoses Not on filedocumented in this encounter"
--- OUTSIDE RECORDS SUMMARY | ~2019-02-17 | XMS | Encounter Summary ---
Demographics + + + | Address | [address] | | | [place] [address] | + + + | Home Phone [...] | | | | | [place] [address] | | + + + + + | Thania Mallory | ECON | [address] | | | | | [place] [address] | | + + + + + | Deidra Weldon | ECON | [address] | | | | | [place] | | | | | [address] | | + + + + + Care Team Providers + +------+ + | Care Long Wall Shear Operator Name | Role | Phone [...] Nephrology at | MD Emanuel [address] [facility] [facility] | | | | | [place] | Elias [address]iz[address] | | | | | [facility] | [place], [place] | | | | | [address] | [address] | | | | | Mailcode: [id number] | [phone] | | | | | [place] | | | | | | [place], [place] | | | | | | [address] | | | | | | [phone] | | | +--------+ + + + [...] | | | | | | [place], [place] | | | | | | [address] | | | | | | [phone] | | | | | | | | +--------+ + + + + documented as of this encounter Visit Diagnoses Not on filedocumented in this encounter"
--- OUTSIDE RECORDS SUMMARY | ~2019-02-17 | XMS | Encounter Summary ---
Demographics + + + | Address | [address] | | | [place] [address] | + + + | Home Phone [...] | | | | | [place] [address] | | + + + + + | Thania Mallory | ECON | [address] | | | | | [place] [address] | | + + + + + | Deidra Weldon | ECON | [address] | | | | | [place] | | | | | [address] | | + + + + + Care Team Providers + +------+ + | Care Infant Nanny Name | Role | Phone | [...] Requested | | | | [place] | [facility] | | | | | [facility] | [place], [place] | | | | | [address] [place] [address] Dr | [address] | | | | | Mailcode: [id number] | | | | | | [place] | | | | | | [place], [place] | | | | | | [address] | | | | | | [phone] | | | +--------+ + + + [...] Denise | | | | | | [place] | | | | | | [address] | | | | | | [phone] | | | | | | | | +--------+ + + + + documented as of this encounter Visit Diagnoses Not on filedocumented in this encounter"
--- OUTSIDE RECORDS SUMMARY | ~2019-02-17 | XMS | Encounter Summary ---
Demographics + + + | Address | [address] | | | [place] [address] | + + + | Home Phone [...] | | | | | [place] [address] | | + + + + + | Thania Mallory | ECON | [address] | | | | | [place] [address] | | + + + + + | Deidra Weldon | ECON | [address] | | | | | [place] | | | | | [address] | | + + + + + Care Team Providers + +------+ + | Care Site Identification Specialist Name | Role | Phone | [...] class) | | | | ANNALISA [address] | [facility] | | | | | Rd [place], [place] | [place], [place] | | | | | [address] | [address] | | | | | [phone] | | | +--------+ + + + [...] Denise | | | | | | [place] | | | | | | [address] | | | | | | [phone] | | | | | | | | +--------+ + + + + documented as of this encounter Visit Diagnoses Not on filedocumented in this encounter"
--- OUTSIDE RECORDS SUMMARY | ~2019-02-17 | XMS | Encounter Summary ---
Demographics + + + | Address | [address] | | | [place] [address] | + + + | Home Phone [...] | | | | | [place] [address] | | + + + + + | Thania Mallory | ECON | [address] | | | | | [place] [address] | | + + + + + | Deidra Weldon | ECON | [address] | | | | | [place] | | | | | [address] | | + + + + + Care Team Providers + +------+ + | Care Director Strategic Account Management Name | Role | Phone | [...] 2005 | Registratio | Anil Elizondo | [phone] | | | | n | Rd Mailcode: [address] | | | | | | [place], [place] | | | | | | [address] | | | | | | [phone] | | | +--------+ + + + [...] | | | | | | [place], [place] | | | | | | [address] | | | | | | [phone] | | | | | | | [...] | [facility] | | | PATHOLOGY | [facility] | | DEPARTMENT | | [...] M.D./PathologistT:02/02/ | | | | | | 06:bonyn I have reviewed | | | | [...] Garcia | | | | | | [facility], | | | | | | [place],labeled gulkana | | | | | | kidney [...] number | | | | | | [id number]/lab | | | | | [...] wall | | | | | | hiysvnkjN7x: | | | | | | NegativeFibrinogen: [...] | + + + + + | [facility] | [address] | [place] [address] | | | PATHOLOGY | [place] | | | + + + + + | [facility] | [address] | [place] [address] | | | PATHOLOGY | [place] | | | + + + + + documented in this encounter Visit Diagnoses Not on filedocumented in this encounter"
--- OUTSIDE RECORDS SUMMARY | ~2019-02-17 | XMS | Encounter Summary ---
Demographics + + + | Address | [address] | | | [place] [address] | + + + | Home Phone [...] | | | | | [place] [address] | | + + + + + | Thania Mallory | ECON | [address] | | | | | [place] [address] | | + + + + + | Deidra Weldon | ECON | [address] | | | | | [place] | | | | | [address] | | + + + + + Care Team Providers + +------+ + | Care Boring Machine Feeder Name | Role | Phone | + +------+ + | Shahid Camargo MD | PCP | | + +------+ + Encounter Details +--------+ + + + + | Date | Type | Department | Care Team | Description | +--------+ + + + + | 12/19/ | Document-Sc | UNKNOWN DEPARTMENT | Unknown . | | | 2012 | anned | [address] | | | | | | [facility] | | | | | | [place], [place] | | | | | | [address] | | | +--------+ + + + [...] Denise | | | | | | [place], [place] | | | | | | [address] | | | | | | [phone] | | | | | | | | +--------+ + + + + documented as of this encounter Visit Diagnoses Not on filedocumented in this encounter"
--- OUTSIDE RECORDS SUMMARY | ~2019-02-17 | XMS | Encounter Summary ---
Demographics + + + | Address | [address] | | | [place] [address] | + + + | Home Phone [...] | | | | | [place] [address] | | + + + + + | Thania Mallory | ECON | [address] | | | | | [place] [address] | | + + + + + | Deidra Weldon | ECON | [address] | | | | | [place] | | | | | [address] | | + + + + + Care Team Providers + +------+ + | Care Contact Lens Blocker Name | Role | Phone | [...] | ) | | | | [address] [facility] | [facility] | | | | | Rd [place], [place] | [place], [place] | | | | | [address] | [address] | | | | | [phone] | | | +--------+ + + + [...] [facility] | | | | | | [address] | | | | | | [phone] | | | | | | | | +--------+ + + + + documented as of this encounter Visit Diagnoses Not on filedocumented in this encounter"
--- OUTSIDE RECORDS SUMMARY | ~2019-02-17 | XMS | Encounter Summary ---
Demographics + + + | Address | [address] | | | [place] [address] | + + + | Home Phone [...] Author | [facility] | | | and [place]ana | + + + | Organization | [facility] | [...] Providers + +------+ + | Care Patient Flow Coordinator Name | Role | Phone | + +------+ + PCP | Unavailable | + +------+ + Encounter Details +--------+ + + + + | Date | Type | Department | Care Team | Description | +--------+ + + + + | 05/29/ | Hospital | [facility] | Conversion | End stage renal | | 2014 | Encounter | CENTER CV [facility]TRA OP | Transaction, | disease (HCC) | | | | [address] | Provider Unknown | | | | | [place], [place] | [phone] | | | | | [address] | | | | | | [phone] | Natashakirit Darrny, | | | | | | MD [address] | | | | | | [place], [place] | | | | | | [address] | | | | | | | [...] [address] | | | | | | [place] [address] | | | | | | [phone] | | | | | | | [...] EXTERNAL LAB | | Testing performed at [facility];[address] [place] [address];[place] [address] MRSA PCR | | | NEGATIVE Testing performed at | | | [address];[place] [address] | | + + + + +---------+ [...]
[~2019-02-17 23:25] MED LIST changes: +BUSPIRONE HCL5 MG PO
--- OUTSIDE RECORDS SUMMARY | 2019-02-17 23:28 | XMS ---
PreManage Notification: CONOR LOUISE Security Molding Fitter Events No recent Security Events currently on file CRITERIA MET - 6 ED Visits in 6 Months - [facility] - Has Care Guidelines - PDMP - [facility] - 2 Visits in 30 Days CARE PROVIDERS TIEN NICHOLSON Internal Medicine 05/28/2018-Current PHONE: Unknown Karena has no Care Guidelines for this patient. Care History Medical/Surgical 11/29/2018 [facility] ED CASE MANAGEMENT CONSULT RECEIVED- CHW PROVIDED TO [facility] FOR HIGH RISK FOLLOW UP. 11/07/[address] [facility] [address] Nicholson has not seen Pt since 06/08/2018. 07/12/2018 \R\ Pt canceled appt w/ Dr Nicholson 07/18/2018 \R\ Pt LWOS in [facility] 08/18/2018 \R\ Pt canceled appt w/ Dr Nicholson 09/12/19. \R\ Pt was N/S for appt w/ Dr Nicholson 05/28/2018 [facility] - PATIENT HAS AN APT WITH PCP DR NICHOLSON ON 09/11/18. - PATIENT GERIATRIC NURSING ASSISTANT- DR HINSON- [phone] - Patient is currently established with [facility]. If patient is seen in the ED during business hours. Please contact CHWs at [facility]. Care Recommendation: This patient has had [...] providing care. E.D. VISIT COUNT (12 MO.) 7 [facility] 18 [facility] TOTAL 25 NOTE: Visits indicate total known visits. ED/UCC VISIT TRACKING (12 MO.) 02/17/2019 23:25 [facility] [place] TYPE: Emergency COMPLAINT: - SOB/RASH [facility] DIAGNOSES: - Shortness of breath - Shortness of Breath - Dependence on renal dialysis - End stage renal disease - Pleural effusion, not elsewhere classified 01/07/2019 01:31 [facility] TYPE: Emergency DIAGNOSES: - Dependence on renal dialysis - Hyperkalemia - End stage renal disease - Acute respiratory distress - Hypertension - High Potassium 01/06/2019 19:30 [facility] [place] TYPE: Emergency COMPLAINT: - CHEST PAIN, SOB DIAGNOSES: - Allergy status to narcotic agent status - Other usp (current) drug therapy - Hyperkalemia - Dyspnea, unspecified - Dependence on renal dialysis - Shortness of breath - End stage renal disease - Allergy status to oth drug/meds/biol subst status - Radiographic dye allergy status - Personal history of nicotine dependence 01/02/2019 11:17 [facility] [place] TYPE: Emergency COMPLAINT: - CHEST PAIN, SOB DIAGNOSES: - Chest pain, unspecified - Shortness of breath - Pleural effusion, not elsewhere classified 12/10/2018 22:01 [facility] TYPE: Emergency DIAGNOSES: - Personal history of [...] - Anemia in chronic kidney disease - [facility] history of dis of the bld/bld-form org/immun [...] Personal history of nicotine dependence - Other usp (current) drug therapy 11/28/2018 09:12 [facility] [place] TYPE: Emergency COMPLAINT: - SOB, BLOOD PRESSURE PROBLEM DIAGNOSES: - Allergy status to narcotic agent status - Allergy status to oth drug/meds/biol subst status - Chronic kidney disease, unspecified - Radiographic dye allergy status - Shortness of breath - Pleural effusion, not elsewhere classified - Other usp (current) drug therapy - Personal history of [...] Other termination clerk (current) drug therapy - Heart failure, unspecified - Allergy status to analgesic agent status - Shortness of breath - Hypertensive heart disease with heart failure 11/06/2018 08:24 [facility] TYPE: Emergency COMPLAINT: - CHEST PAIN DIAGNOSES: - Other termination clerk (current) drug therapy - Allergy status to analgesic agent status - Pleural effusion, not elsewhere classified - Dependence on renal dialysis - Radiographic dye allergy status - Other chest pain - Pericardial effusion (noninflammatory) - Allergy status to narcotic agent status - Acute respiratory failure with hypoxia - Chronic pulmonary edema - Allergy status to oth drug/meds/biol subst status 10/17/2018 03:19 [facility] TYPE: Emergency DIAGNOSES: - Dependence on renal [...] - Dependence on renal dialysis - Other usp (current) drug therapy - 1 Hypertensive chronic kidney disease w stg 1-4/unsp dylan kdny 08/20/2018 13:08 [facility] TYPE: Emergency COMPLAINT: - CHEST PAIN, SOB DIAGNOSES: - Dependence on renal dialysis - Chronic kidney disease, unspecified - Allergy status to oth drug/meds/biol subst status - Chronic pulmonary edema - Other usp (current) drug therapy - Allergy status to [...] specified abnormalities of plasma proteins - Other usp (current) drug therapy - Radiographic dye allergy status - Dependence on renal dialysis - Chest pain, unspecified 08/13/2018 00:00 [facility] TYPE: Emergency 07/18/2018 22:44 [facility] TYPE: Emergency DIAGNOSES: - Hypoxemia - Pleural [...] PAIN DIAGNOSES: - Other chest pain - terminal press operator (current) use of opiate analgesic - Allergy status to oth drug/meds/biol subst status - End stage renal disease - Dependence on renal dialysis - Personal history of nicotine dependence - Fluid overload, unspecified - Radiographic dye allergy status - Heart failure, unspecified - Other usp (current) drug therapy 06/12/2018 13:45 [facility] [place] TYPE: Emergency COMPLAINT: - SOB DIAGNOSES: - Shortness of breath - Radiographic dye allergy status - Unspecified asthma, uncomplicated - Hyperkalemia - Allergy status to narcotic agent status - Dependence on renal dialysis - Fluid overload, unspecified - Other termination clerk (current) drug therapy - Allergy status to oth drug/meds/biol subst status - Chronic kidney disease, unspecified 06/11/2018 07:55 [facility] [place] TYPE: Emergency COMPLAINT: - DIFFICULTY BREATHING,VOMITING DIAGNOSES: - Chronic pulmonary edema - Shortness of breath - Other termination clerk (current) drug therapy - Radiographic dye allergy status - group home (current) use of opiate analgesic - Personal history of nicotine dependence Plus 5 More Visits INPATIENT VISIT TRACKING (12 MO.) 12/10/2018 [facility] DIAGNOSES: - Other ascites - [...] Awaiting organ transplant status - Hyperkalemia - Oth personal risk factors, not elsewhere classified - [...] failure with hypoxia - Chronic pulmonary edema [facility]/06/2018 [facility]:10 [facility]: Internal [facility] DIAGNOSES: - Acute respiratory failure with hypoxia - Pleural effusion, not elsewhere classified - Left ventricular failure, unspecified - Anemia in chronic kidney disease - Pulmonary hypertension, unspecified - Pericardial effusion (noninflammatory) - Dependence on renal dialysis - Chronic right heart failure - Patient's noncompliance w oth medical treatment and regimen - Chronic combined systolic and diastolic hrt fail - Ot personal risk factors, not elsewhere classified - Abnormal levels of other serum enzymes - End stage renal disease - Hyperkalemia - Dilated cardiomyopathy 10/17/2018 03:19 [facility] TYPE: General Medicine DIAGNOSES: - Shortness of breath - Pleural effusion, not elsewhere classified - End stage renal disease - Dependence on renal dialysis 08/20/2018 17:21 [facility] TYPE: General Medicine DIAGNOSES: - Pleural Effusion - Chronic pulmonary edema 07/18/2018 22:44 [facility] TYPE: General Medicine DIAGNOSES: - Hypoxemia - End stage renal disease - Pulmonary hypertension, unspecified - Chronic right heart failure - Personal history of other diseases of urinary system - Fever, unspecified - Pleural effusion, not elsewhere classified - Anemia in chronic kidney disease - Dependence on renal dialysis 05/26/2018 11:57 [facility] TYPE: General Medicine DIAGNOSES: - Acute respiratory [...] Oth personal risk factors, not elsewhere classified [email or web address]
[2019-02-17] MEDS ORDERED: PROMETHAZINE HC25 M1 PO (23:38)
== END 2019-02-18 01:45 | disposition home or self-care (01) ==
LOC: ED 23:25
DX: E87.70 Fluid overload, unspecified (principal); N18.9 Chronic kidney disease, unspecified; Z91.041 Radiographic dye allergy status; Z88.5 Allergy status to narcotic agent; Z88.8 Allergy status to other drugs, medicaments and biological substances; Z79.899 Other long term (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
CPT/HCPCS: 71045; 80053; 83735; 84484; 85025; 99283-25

== ENCOUNTER 2019-03-08 02:36 | Emergency (ER) | payer MEDICARE ==
[~2019-03-08] VITALS: Ht 170.2 cm; Wt 69.8 kg
--- OUTSIDE RECORDS SUMMARY | ~2019-03-08 | XMS | Encounter Summary ---
Demographics + + + | Address | [address] | | | [place] [address] | + + + | Home Phone | | + + + | Preferred Language | Unknown | + + + | Marital Status | Single | + + + | Mormon Affiliation | Unknown | + + + | Race | Unknown | + + + | Ethnic Group | Unknown | + + + Author + + + | Author | [facility] | | | and [place] | + + + | Organization | [facility] | | | and [place] | + + + | Address | Unknown | + + + | Phone | Unavailable | + + + Support + + +---------+ + | Name | Relationship | Address | Phone | + + +---------+ + | Thania Mallory | ECON | Unknown | | + + +---------+ + | Saundra Mallory | ECON | Unknown | | + + +---------+ + Care Team Providers + +------+ + | Care Auto Customize Painter Name | Role | Phone | + +------+ + | Jonathan Alonso MD | PCP | | + +------+ + Reason for Visit + + + | Reason | Comments | + + + | Lab Results | Cytology report | + + + Encounter Details +--------+ + + + + | Date | Type | Department | Care Team | Description | +--------+ + + + + | 11/15/ | Telephone | [facility] | George Torres RN | Lab Results | | 2019 | | [address] | | (Cytology report) | | | | [place] | | | | | | [address] | | | | | | [phone] | | | +--------+ + + + + Social History + +-------+ +--------+------+ | Tobacco Use | Types | Packs/Day | Years | Date | | | | | Used | | + +-------+ +--------+------+ | Former Smoker | | 0.5 | | | + +-------+ +--------+------+ + [...] as of this encounter Plan of Treatment +--------+---------+ + + + | Date | Type | Specialty | Care Team | Description | +--------+---------+ + + + | 04/18/ | Office | Pulmonology | Denny Alexander | | | 2019 | Visit | | Deny Briggs MD [address] | | | | | [address] | | | | | | [place] [address] | | | | | | [phone] | | | | | | | | +--------+---------+ + + + documented as of this encounter Visit Diagnoses Not on filedocumented in this encounter"
--- OUTSIDE RECORDS SUMMARY | ~2019-03-08 | XMS | Clinical Summary ---
Demographics + + + | Address | [address] | | | [place] [address] | + + + | Home Phone | | + + + | Preferred Language | Unknown | + + + | Marital Status | Single | + + + | Yazidism Affiliation | Unknown | + + + | Race | Unknown | + + + | Ethnic Group | Unknown | + + + Author + + + | Author | [facility] | | | and [place] | + + + | Organization | [facility] | | | and Josephana [...] Team Providers + +------+ + | Care Tubing Supervisor Name | Role | Phone | + +------+ + | Jonathan Alonso MD | PCP | | + +------+ + Allergies + + + + + + | Active Allergy | Reactions | Severity | Noted | Comments | | | | | Date | | + + + + + + | Adhesive & Tape | Rash | Medium | 02/22/20 | Certain tapes | | | | | 14 | | + + + + + + | Fentanyl | Itching | Medium | 10/29/19 | | | | | | 15 | | + + + + + + | Iodinated Diagnostic | Itching | Medium | 08/13/19 | Pt c/o face | | Agents | | | 16 | itching during | | | | | | fistulagram | + + + + + + | Lisinopril | | Low | 04/17/19 | cough | | | | | 18 | | + + + + + + | Methylphenidate | Other (See Comments) | Medium | 06/15/19 | Patient says skin | | | | | 19 | was crawling | + + + + + + | Morphine | Itching, Rash | Medium | 10/12/19 | Has used | | | | | 13 | hydromorphone | | | | | | in-house. 01/24/19 | + + + + + + | Metoclopramide | Itching | Medium | 10/18/19 | | | | | | 19 | | + + + + + + Medications + + + +---------+------+------+-------+ | Medication | Sig | Dispensed | Refills | Star | End | Statu | | | | | | t | Date | s | | | | | | Date | | | + + + +---------+------+------+-------+ | iron sucrose | Inject 2.5 mLs into | | 0 | 07/1 | | Activ | | (VENOFER) 20 mg/mL | the vein Once a | | | 0/20 | | e | | injection | week. | | | 15 | | | + + + +---------+------+------+-------+ | doxercalciferol | Inject 0.5 mLs into | | 0 | 12/2 | | Activ | | (HECTOROL) 2 mcg/mL | the vein Three times | | | 4/20 | | e | | injectionIndications | a week. Per | | | 18 | | | | : ESRD (end stage | dialysis clinic | | | | | | | renal disease) ([facility]) | protocol | | | | | | + + + +---------+------+------+-------+ +---+ + | | Additional | | | informationPatient | | | taking differently: | | | 1.5 mcg Intravenous | | | THREE TIMES WEEKLY, | | | Per dialysis clinic | | | protocol, Reason: | | | Not Effective, | | | Reported on | | | 12/11/2018 5:59 AM | +---+ + + + +--------+----+------+------+-------+ | etelcalcetide | Inject 2.5 mg into | | 0 | | | Activ | | (PARSABIV) 2.5 | the vein Three times | | | | | e | | mg/0.5 mL injection | a week. | | | | | | + + +--------+----+------+------+-------+ | | Take 3 mLs by | | 0 | | | Activ | | albuterol-ipratropiu | nebulization. | | | | | e | | m 2.5-0.5 mg/3 mL | | | | | | | | SOLN | | | | | | | + + +--------+----+------+------+-------+ | ondansetron | Take 4 mg by mouth 3 | | 0 | | | Activ | | (ZOFRAN) 4 mg tablet | (three) times daily | | | | | e | | | as needed for | | | | | | | | Nausea. | | | | | | + + +--------+----+------+------+-------+ | pantoprazole | Take 40 mg by mouth | | 0 | | | Activ | | (PROTONIX) 40 mg | every morning before | | | | | e | | tablet | breakfast. | | | | | | + + +--------+----+------+------+-------+ | promethazine | Take 1 tablet by | | 0 | 05/2 | | Activ | | (PHENERGAN) 25 mg | mouth every 6 (six) | | | 1/20 | | e | | tablet | hours as needed for | | | 19 | | | | | Nausea or Vomiting | | | | | | | | (non-resposive to | | | | | | | | zofran). | | | | | | + + +--------+----+------+------+-------+ | epoetin jenna | Inject 0.4 mLs | | 0 | 04/3 | | Activ | | (EPOGEN) 20,000 | (8,000 Units total) | | | 0/20 | | e | | units/mL injection | into the skin every | | | 14 | | | | | 7 days. | | | | | | + + +--------+----+------+------+-------+ | sevelamer | Take 2 tablets by | | 0 | 03/2 | 03/2 | Activ | | carbonate (RENVELA) | mouth 3 (three) | | | 9/20 | 8/20 | e | | 800 mg tablet | times daily with | | | 19 | 20 | | | | meals and 2 tablet | | | | | | | | with snacks twice | | | | | | | | daily | | | | | | + + +--------+----+------+------+-------+ | clopidogrel | Take 1 tablet by | 30 | 4 | 08/2 | | Activ | | (PLAVIX) 75 mg | mouth Daily. | tablet | | 0/20 | | e | | tablet | | | | 19 | | | + + +--------+----+------+------+-------+ | carvedilol (COREG) | Take 1 tablet by | 60 | 11 | 11/0 | | Activ | | 6.25 mg tablet | mouth 2 times daily. | tablet | | 7/20 | | e | | | | | | 19 | | | + + +--------+----+------+------+-------+ | citalopram | Take 1 tablet by | 30 | 5 | 11/0 | | Activ | | (CELEXA) 20 mg | mouth Daily. | tablet | | 8/20 | | e | | tablet | | | | 19 | | | + + +--------+----+------+------+-------+ | clonazePAM | Take 0.5 tablets by | 3 | 0 | 11/0 | | Activ | | (KLONOPIN) 0.5 mg | mouth Daily as | tablet | | 7/20 | | e | | tablet | needed for Anxiety | | | 19 | | | | | (on hemodialysis | | | | | | | | days). | | | | | | + + +--------+----+------+------+-------+ | valsartan (DIOVAN) | Take 1 tablet by | 90 | 3 | 11/1 | | Activ | | 40 mg tablet | mouth Daily. | tablet | | 9/20 | | e | | | | | | 19 | | | + + +--------+----+------+------+-------+ Active Problems + + + | Problem | Noted Date | + + + | Acute on chronic combined systolic and diastolic CHF (congestive | 01/24/2019 | | heart failure) | | + + + | Noncompliance | 01/07/2019 | + + + | Uncontrolled hypertension | 01/07/2019 | + + + | Recurrent right pleural effusion | 01/07/2019 | + + + | Acute respiratory distress | 01/07/2019 | + + + | Pericardial effusion without cardiac tamponade | 11/07/2018 | + + + | Pulmonary edema with congestive heart failure with reduced left | 11/06/2018 | | ventricular function | | + + + | Non-cardiogenic pulmonary edema | 08/20/2018 | + + + | Other ascites | 07/19/2018 | + + + | Troponin I above reference range | 07/19/2018 | + + + | Acute hypoxemic respiratory failure | 07/18/2018 | + + + | Chronic right-sided heart failure | 07/18/2018 | + + + | Dilated cardiomyopathy | 06/28/2018 | + + + | Chronic combined systolic and diastolic heart failure | 05/27/2018 | + + + | At high risk for electrolyte imbalance | 05/27/2018 | + + + | Hyperphosphatemia | 05/27/2018 | + + + | Moderate to severe pulmonary hypertension | 05/27/2018 | + + + | Non-rheumatic mitral regurgitation | 05/27/2018 | + + + | Non-rheumatic tricuspid valve insufficiency | 05/27/2018 | + + + | Non-compliance | 05/26/2018 | + + + | Pleural effusion, not elsewhere classified | 05/26/2018 | + + + + + | Overview: Recurrent. | + + + + + | Awaiting kidney transplant status | 03/10/2014 | + + + + + | Overview: Active Kidney Transplant Waiting List at [facility]: | | 03/07/2014 | + + + + + | Obesity (BMI 30.0-34.9) | 02/24/2014 | + + + | History of peritonitis, dialysis-associated | 07/29/2013 | + + + + + | Overview: Due to MSSA. Had tunneled infection as well. PD | | catheter removed in July 2013. On Keflex till 08/01/13. | + + + +---+ | History of Henoch-Schonlein purpura | | + +---+ + + | Overview: Diagnosed at age 10. 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 ESRD in 2012, started peritoneal dialysis in 2012. Switched | | ot hemodialysis in July 2013. Current Access: Right chest | | catheter. Other Access: Left radial-cephalic AVF created | | 02/24/14, primary failure (clotted on 03/07/14, attempted declot | | but reclotted). Listed at [facility] for kidney transplant - status | | ACTIVE. | + + + +---+ | Anemia in ESRD (end-stage renal disease) | | + +---+ | Secondary hyperparathyroidism | | + +---+ | Obesity | | + +---+ Resolved Problems + + + + | Problem | Noted | Resolved | | | Date | Date | + + + + | Hyperkalemia | 01/08/20 | | | | 19 | 9 | + + + + | Hypoglycemia | 01/08/20 | | | | 19 | 9 | + + + + | Bacteremia due to Gram-positive bacteria | 12/13/19 | | | | 19 | 9 | + + + + | Hypertensive urgency | 11/07/19 | | | | 19 | 9 | + + + + | Pancytopenia | 07/20/19 | | | | 19 | 9 | + + + + | Sepsis | 07/19/19 | | | | 19 | 9 | + + + + | Transaminitis | 05/29/19 | | | | 19 | 9 | + + + + | Hyperkalemia | 05/28/19 | | | | 19 | 9 | + + + + | SOB (shortness of breath) | 05/27/19 | | | | 19 | 9 | + + + + Encounters +--------+ + + + + | Date | Type | Specialty | Care Team | Description | +--------+ + + + + | 01/23/ | Hospital | Internal Medicine | Vivek Teran, | SOB (shortness of | | 2019 - | Encounter | | Omar Dick MD | breath) (Primary | | | | | Sotero Reinoso, | Dx); ESRD needing | | 01/26/ | | | Usha Del Castillo MD | dialysis ([facility]); | | 2018 | | | | Chronic pleural | | | | | | effusion; | | | | | | Noncompliance with | | | | | | renal dialysis | | | | | | ([facility]); Acute | | | | | | respiratory | | | | | | distress; Anemia in | | | | | | ESRD (end-stage | | | | | | renal disease) | | | | | | ([facility]); At high risk | | | | | | for electrolyte | | | | | | imbalance; ESRD on | | | | | | hemodialysis ([facility]); | | | | | | Hyperphosphatemia; | | | | | | Noncompliance; | | | | | | Recurrent right | | | | | | pleural effusion; | | | | | | Hypoalbuminemia; | | | | | | Non-compliance | +--------+ + + + + | 01/22/ | Refill | Cardiology | Daniela Alejandre | Medication Refill | | 2019 | | | D, Courtroom Deputy | | +--------+ + + + + | 01/07/ | Hospital | Internal Medicine | Florian Nelson, | Hyperkalemia | | 2019 - | Encounter | | Megan Fields DO | (Primary Dx); ESRD | | | | | Nicholas Sutton MD | needing dialysis | | 01/10/ | | | Piedad Mosquera, | ([facility]); Acute | | 2018 | | | MD Kline, | respiratory | | | | | DO Paty | distress; Recurrent | | | | | | right pleural | | | | | | effusion; Anemia in | | | | | | ESRD (end-stage | | | | | | renal disease) | | | | | | ([facility]); At high risk | | | | | | for electrolyte | | | | | | imbalance; 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 | | | | | | failure ([facility]); | | | | | | 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 | | | | | | ([facility]); ESRD on | | | | | | hemodialysis ([facility]); | | | | | | Noncompliance; | | | | | | Uncontrolled | | | | | | hypertension | +--------+ + + + + | 01/01/ | Refill | Nephrology | Jorje Camp | Medication Refill | | 2018 | | | M, | | +--------+ + + + + | 12/19/ | Telephone | Hospitalist | George Torres RN | Congestive Heart | | 2018 | | | | Failure (Reviewed | | | | | | for CHF Quality | | | | | | Measures) | +--------+ + + + + | 12/17/ | Telephone | Case Management | Raymundo | Appointment | | 2018 | | | Irish Obrien CMA | (Appointment with | | | | | | PCP needed) | +--------+ + + + + | 12/10/ | Hospital | Internal Medicine | Rayray Powers MD | Sepsis, due to | | 2018 - | Encounter | | Lee Harris MD | unspecified | | | | | Daron, Jw, DO | organism, | | 12/14/ | | | | unspecified whether | | 2019 | | | | acute organ | | | | | | dysfunction present | | | | | | ([facility]) (Primary Dx); | | | | | | Pneumonia of right | | | | | | lower lobe due to | | | | | | infectious organism | | | | | | ([facility]); Hypoxia; | | | | | | Hypervolemia, | | | | | | unspecified | | | | | | hypervolemia type; | | | | | | ESRD on dialysis | | | | | | ([facility]); Hyperkalemia; | | | | | | Acute on chronic | | | | | | respiratory failure | | | | | | with hypoxia and | | | | | | hypercapnia ([facility]); | | | | | | Acute respiratory | | | | | | failure with hypoxia | | | | | | ([facility]); Anemia in | | | | | | ESRD (end-stage | | | | | | renal disease) | | | | | | ([facility]); At high risk | | | | | | for electrolyte | | | | | | imbalance; Awaiting | | | | | | organ transplant | | | | | | status; 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 | | | | | | failure ([facility]); | | | | | | Chronic right-sided | | | | | | heart failure ([facility]); | | | | | | 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 | | | | | | ([facility]); ESRD on | | | | | | hemodialysis ([facility]); | | | | | | History of | | | | | | Henoch-Schonlein | | | | | | purpura; History of | | | | | | peritonitis; | | | | | | Hyperphosphatemia; | | | | | | Non-cardiogenic | | | | | | pulmonary edema; | | | | | | Non-compliance; | | | | | | Non-rheumatic mitral | | | | | | regurgitation; | | | | | | Non-rheumatic | | | | | | tricuspid valve | | | | | | insufficiency; Other | | | | | | ascites; | | | | | | Pericardial effusion | | | | | | without cardiac | | | | | | tamponade; Pulmonary | | | | | | edema with | | | | | | congestive heart | | | | | | failure with reduced | | | | | | left ventricular | | | | | | function ([facility]); | | | | | | Moderate to severe | | | | | | pulmonary | | | | | | hypertension ([facility]); | | | | | | Low grade fever; | | | | | | Noncompliance of | | | | | | patient with renal | | | | | | dialysis ([facility]); | | | | | | Pleural effusion, | | | | | | right; Gram-positive | | | | | | bacteremia | +--------+ + + + + from Last 3 Months Immunizations + + + + | Name | Administration Dates | Next Due | + + + + | DTAP, 5 DOSE (PED) | 10/08/2001, 07/22/1997, 1996, | | | | 1996 | | + + + + | DTP (PED) | 1996 | | + + + + | HIB (PRP-T), 4 DOSE | 07/22/1997, 1996, 1996, | | | (PED) | 1996 | | + + + + | INFLUENZA PF | 12/11/2018 | | | QUAD(PED/ADOL/ADULT) | | | | ,PSKT or VIAL | | | + + + + | INFLUENZA PF | 12/13/2012 | | | TRIVALENT(PED/ADOL/A | | | | DULT), PSKT | | | + + + + | IPV, 4 DOSE | 10/08/2001, 1996, 1996 | | | (PED/ADULT) | | | + + + + | MENINGOCOCCAL | 12/17/2012 | | | CONJUGATE,MENACTRA | | | | (PED/ADOL/ADULT) | | | + + + + | MMR, 2 DOSE | 10/08/2001, 07/22/1997 | | | (PED/ADULT) | | | + + + + | PNEUMOCOCCAL | 06/21/2012 | | | CONJUGATE 13-VALENT | | | | (PCV13) | | | + + + + Family History + + +------+ + | Medical History | Relation | Name | Comments | + + +------+ + | High blood pressure | Father | | | + + +------+ + | Alcohol abuse | Father | | | + + +------+ + | Hypertension | Father | | | + + +------+ + | Heart disease | Mother | | | + + +------+ + | Seizures | Mother | | | + + +------+ + + +------+--------+ + | Relation | Name | Status | Comments | + +------+--------+ + | Father | | | | + +------+--------+ + | Father | | Alive | HTN, alcoholic | + +------+--------+ + | Father | | | | + +------+--------+ + | Mother | | Alive | heart disease, epilepsy | + +------+--------+ + | Mother | | | | + +------+--------+ + Social History + +-------+ +--------+ + | Tobacco Use | Types | Packs/Day | Years | Date | | | | | Used | | + +-------+ +--------+ + | Former Smoker | | 0.5 | | 01/04/2017 - | | | | | | 01/04/2018 | + +-------+ +--------+ + + +---+---+---+ | Smokeless Tobacco: | | [...] recent travel history available. | + + Last Filed Vital Signs + + + + + | Vital Sign | Reading | Time Taken | Comments | + + + + + | Blood Pressure | 147/73 | 01/26/2019 7:36 AM | | | | | PST | | + + + + + | Pulse | 82 | 01/26/2019 7:36 AM | | | | | PST | | + + + + + | Temperature | 36.8 C (98.3 F) | 01/26/2019 7:36 AM | | | | | PST | | + + + + + | Respiratory Rate | 18 | 01/26/2019 7:36 AM | | | | | PST | | + + + + + | Oxygen Saturation | 94% | 01/26/2019 7:36 AM | | | | | PST | | + + + + + | Inhaled Oxygen | - | - | | | Concentration | | | | + + + + + | Weight | 71 kg (156 lb 8.4 | 01/25/2019 9:20 PM | | | | oz) | PST | | + + + + + | Height | 167.6 cm (5' 6") | 01/24/2019 3:56 AM | | | | | PST | | + + + + + | Body Mass Index | 25.26 | 01/24/2019 3:56 AM | | | | | PST | | + + + + + Plan of Treatment +--------+---------+ + + + | Date | Type | Specialty | Care Team | Description | +--------+---------+ + + + | 04/18/ | Office | Pulmonology | Denny Alexander | | | 2020 | Visit | | Deny Briggs MD [address] | | | | | [address] | | | | | | [place] [address] | | | | | | [phone] | | | | | | | | +--------+---------+ + + + + + + + + | Health Maintenance | Due Date | Last Done | Comments | + + + + + | Vaccine: | | 06/21/2012 | | | Pneumococcal - | 3 | | | | (2 of 3 - PPSV23) | | | | + + + + + | Adult Annual | | | | | Wellness Visit | 5 | | | + + + + + | Cervical Cancer | | | | | Screening (Pap) | 7 | | | + + + + + | Vaccine: | | 10/28/2008, 10/08/2001, | | | Dtap/Tdap/Td (7 - | 9 | 07/22/1997, Additional history | | | Td) | | exists | | + + + + + | Vaccine: HPV | Completed | 03/02/2015, 05/27/2014, | | | | | 11/12/2013 | | + + + + + | Vaccine: Influenza | Completed | 12/11/2018, 11/24/2017, | | | | | 12/13/2012 | | + + + + + Implants + +------+--------+ +--------+--------+--------+ | Implanted | Type | Area | Manufacture | Device | Shelf | Model | | | | | r | | Expira | / | | | | | | Identi | tion | Serial | | | | | | fier | Date | / Lot | + +------+--------+ +--------+--------+--------+ | Patch Bovine Vascuguard | | Left: | SYNOVIS - | | | [id number] | | 0.8x8cm - [id number]: | | Arm | SYNO | | | N / | | Qty: 1 on 03/07/2014 by Alfred, | | | | | | /[id number] | | Rik Trotter MD | | | | | | [id number] | | | | | | | | [id number] | + +------+--------+ +--------+--------+--------+ + +------+------+ +--------+--------+--------+ | Explanted | Type | Area | Manufacture | Device | Shelf | Model | | | | | r | | Expira | / | | | | | | Identi | tion | Serial | | | | | | fier | Date | / Lot | + +------+------+ +--------+--------+--------+ | 14.5 Fr/Ch (4.8) X 23cm | | | COVIDIEN | | | [id number] | | | | | -MATT 867 - | | | [id number] / | | | | | COVI | | | | | | | | | | | /[id number] | | | | | | | | 1X | + +------+------+ +--------+--------+--------+ Procedures + +--------+ + + + | Procedure Name | Priori | Date/Time | Associated Diagnosis | Comments | | | ty | | | | + +--------+ + + + | MAGNESIUM | Routin | 01/26/2019 | | Results for this | | | e | 5:37 AM | | procedure are in the | | | | PST | | results section. | + +--------+ + + + | CBC NO DIFFERENTIAL | Routin | 01/26/2019 | | Results for this | | | e | 5:37 AM | | procedure are in the | | | | PST | | results section. | + +--------+ + + + | RENAL FUNCTION PANEL | Routin | 01/26/2019 | | Results for this | | | e | 5:37 AM | | procedure are in the | | | | PST | | results section. | + +--------+ + + + | HEMODIALYSIS | Routin | 01/25/2019 | | Results for this | | | e | 6:45 PM | | procedure are in the | | | | PST | | results section. | + +--------+ + + + | MAGNESIUM | Routin | 01/25/2019 | | Results for this | | | e | 5:59 AM | | procedure are in the | | | | PST | | results section. | + +--------+ + + + | CBC NO DIFFERENTIAL | Routin | 01/25/2019 | | Results for this | | | e | 5:59 AM | | procedure are in the | | | | PST | | results section. | + +--------+ + + + | RENAL FUNCTION PANEL | Routin | 01/25/2019 | | Results for this | | | e | 5:59 AM | | procedure are in the | | | | PST | | results section. | + +--------+ + + + | IRON AND IRON | Add-On | 01/24/2019 | | Results for this | | BINDING CAPACITY | | 5:53 AM | | procedure are in the | | | | PST | | results section. | + +--------+ + + + | FERRITIN | Add-On | 01/24/2019 | | Results for this | | | | 5:53 AM | | procedure are in the | | | | PST | | results section. | + +--------+ + + + | CREATINE KINASE, | Routin | 01/24/2019 | | Results for this | | ISOENZYMES | e | 5:53 AM | | procedure are in the | | | | PST | | results section. | + +--------+ + + + | TROPONIN I | Routin | 01/24/2019 | | Results for this | | | e | 5:53 AM | | procedure are in the | | | | PST | | results section. | + +--------+ + + + | PHOSPHORUS | Routin | 01/24/2019 | | Results for this | | | e | 5:53 AM | | procedure are in the | | | | PST | | results section. | + +--------+ + + + | MAGNESIUM | Routin | 01/24/2019 | | Results for this | | | e | 5:53 AM | | procedure are in the | | | | PST | | results section. | + +--------+ + + + | BASIC METABOLIC | Routin | 01/24/2019 | | Results for this | | PANEL | e | 5:53 AM | | procedure are in the | | | | PST | | results section. | + +--------+ + + + | CBC WITH | Routin | 01/24/2019 | | Results for this | | DIFFERENTIAL | e | 5:53 AM | | procedure are in the | | | | PST | | results section. | + +--------+ + + + | XR CHEST AP PORTABLE | STAT | 01/24/2019 | | Results for this | | | | 1:35 AM | | procedure are in the | | | | PST | | results section. | + +--------+ + + + | B TYPE NATRIURETIC | STAT | 01/23/2019 | | Results for this | | PEPTIDE | | 11:27 PM | | procedure are in the | | | | PST | | results section. | + +--------+ + + + | PHOSPHORUS | STAT | 01/23/2019 | | Results for this | | | | 11:26 PM | | procedure are in the | | | | PST | | results section. | + +--------+ + + + | TROPONIN I | STAT | 01/23/2019 | | Results for this | | | | 11:26 PM | | procedure are in the | | | | PST | | results section. | + +--------+ + + + | COMPREHENSIVE | STAT | 01/23/2019 | | Results for this | | METABOLIC PANEL | | 11:26 PM | | procedure are in the | | | | PST | | results section. | + +--------+ + + + | CBC WITH | STAT | 01/23/2019 | | Results for this | | DIFFERENTIAL | | 11:26 PM | | procedure are in the | | | | PST | | results section. | + +--------+ + + + | XR CHEST 2 VIEWS | INOCENCIO | 01/23/2019 | | Results for this | | | | 11:18 PM | | procedure are in the | | | | PST | | results section. | + +--------+ + + + | ECG 12 LEAD | STAT | 01/23/2019 | | Results for this | | | | 10:58 PM | | procedure are in the | | | | PST | | results section. | + +--------+ + + + | THORACENTESIS | Routin | 01/23/2019 | | Results for this | | | e | 10:51 PM | | procedure are in the | | | | PST | | results section. | + +--------+ + + + | ED INFORMATION | Routin | 01/23/2019 | | | | EXCHANGE | e | 10:11 PM | | | | | | PST | | | + +--------+ + + + +---+--------+ | | | | | Proced | | | ure | | | Note - | | | Matt, | | | Lab In | | | | | | Hlseve | | | n - | | | 01/23/ | | | 2018 | | | 10:12 | | | PM PST | | | | | | Format | | | ting | | | of | | | this | | | note | | | might | | | be | | | differ | | | ent | | | from | | | the | | | origin | | | al.COL | | | LECTIV | | | E?NOTI | | | FICATI | | | ON?/ | | | | | | 9 | | | 22:10? | | | BLANDON | | | ON, | | | DARA | | | | | | R?MRN: | | | | | | [id number] | | | [id number] | | | riteri | | | a Met | | | 10 in | | | 12 | | | Care | | | Guidel | | | inesSe | | | curity | | | and | | | Safety | | | No | | | recent | | | | | | Securi | | | ty | | | Events | | | | | | curren | | | tly on | | | | | | fileED | | | Care | | | Guidel | | | inesTh | | | ere | | | are | | | curren | | | tly no | | | ED | | | Care | | | Guidel | | | hugo | | | for | | | this | | | patien | | | t. | | | Please | | | check | | | your | | | facili | | | ty's | | | medica | | | l | | | record | | | s | | | system | | | .Care | | | Histor | | | yMedic | | | al/Laura | | | [email or web address] | | | /26/19 | | | 12:00 | | | AM | | | [facility] | [facility] | | | alED | | | CASE | | | MANAGE | | | MENT | | | CONSUL | | | T | | | RECEIV | | | ED- | | | [facility] | | | PROVID | | | ED TO | | | BASIL- | | | [facility] | | | OF | | | CLINIC | | | FOR | | | HIGH | | | RISK | | | FOLLOW | | | | | | UP.9/[email or web address] | | | /19 | | | 12:00 | | | AM | | | [facility] | | | [facility] | | | alDr | | | [facility] | | | ey has | | | not | | | seen | | | Pt | | | since | | | 4/5/20 | | | 19. | | | 5/9/20 | | | 19 Pt | | | cancel | | | ed | | | appt | | | w/ Dr | | | [facility] | | | ey5/15 | | | /2019 | | | Pt | | | [facility] | | | in | | | [facility] | | | n | | | Clinic | | | 6/15/2 | | | 019 Pt | | | | | | cancel | | | ed | | | appt | | | w/ Dr | | | [facility] | | | ey7/9/ | | | 20.19 | | | Pt was | | | N/S | | | for | | | appt | | | w/ Dr | | | [facility] | | | ey | | | 3/1 | | | 9 | | | 12:00 | | | AM | | | [facility] | | | [facility] | | | al | | | PATIEN | | | T HAS | | | AN APT | | | WITH | | | PCP DR | | | | | | [facility] | | | EY ON | | | 07/09/ | | | 19. | | | PATIEN | | | T | | | NEPHRO | | | LOGIST | | | - DR | | | AKOU[facility]- | | | (509) | | | [phone] | | | [id number] | | | Patien | | | t is | | | curren | | | tly | | | establ | | | ished | | | with | | | St | | | [facility] | | y | | | [facility] | | | . If | | | patien | | | t is | | | seen | | | in the | | | ED | | | during | | | | | | busine | | | ss | | | hours. | | | | | | Please | | | | | | contac | | | t [facility] | | | at St | | | | | | [facility] | | | y | | | Clinic | | | .Care | | | Recomm | | | endati | | | on:Thi | | | s | | | patien | | | t has | | | had 5 | | | or | | | more | | | Emerge | | | ncy | | | Depart | | | ment | | | visits | | | in | | | the | | | last | | | 12 | | | months | | | .? | | | Patien | | | t | | | requir | | | es | | | educat | | | ion on | | | the | | | scope | | | and | | | purpos | | | e of | | | the ED | | | as an | | | acute | | | care | | | provid | | | er not | | | a | | | Primar | | | y Care | | | | | | Provid | | | er and | | | | | | should | | | not | | | be | | | utiliz | | | ed for | | | | | | chroni | | | c | | | condit | | | ions.? | | | These | | | are | | | guidel | | | hugo | | | and | | | the | | | provid | | | er | | | should | | | | | | exerci | | | se | | | clinic | | | al | | | judgme | | | nt | | | when | | | provid | | | ing | | | care.P | | | rescri | | | ption | | | Drug | | | Report | | | (12 | | | Mo.)PD | | | MP | | | query | | | found | | | no | | | report | | | .E.D. | | | Visit | | | Count | | | (12 | | | mo.)Fa | | | cility | | | | | | Visits | | | Low | | | Acuity | | | | | | [facility] | | | | | | [facility] | | | al | | | [facility] | | | l | | | Center | | | 7 0 | | | [facility] | | [facility] | | | al 18 | | | 0 | | | Total | | | 25 0 | | | Note: | | | Visits | | | | | | indica | | | te | | | total | | | known | | | visits | | | . | | | Medica | | | id Low | | | | | | Acuity | | | Dx | | | are | | | the | | | number | | | of | | | primar | | | y | | | diagno | | | ses on | | | the | | | Medica | | | id's | | | Low | | | Acuity | | | dx | | | list. | | | | | | Recent | | | | | | Emerge | | | ncy | | | Depart | | | ment | | | Visit | | | [facility] | | | yShowi | | | ng 10 | | | most | | | recent | | | | | | visits | | | out | | | of 25 | | | in the | | | past | | | 12 | | | months | | | Date | | | Facili | | | ty | | | City | | | State | | | Type | | | Diagno | | | ses or | | | Chief | | | | | | Compla | | | int | | | Nov | | | 20, | | | 2019 | | | [facility] | | | | | | [facility] | | | al | | | [facility] | | | [place] | | | [place] | | | Emerge | | | ncy | | | | | | Shortn | | | ess of | | | | | | Breath | | | Nov | | | 4, | | | 2019 | | | [facility] | | | | | | [facility] | | | al | | | [facility] | | | [place] | | | [place] | | | Emerge | | | ncy | | | | | | Hypert | | | ension | | | | | | High | | | Potass | | | ium | | | | | | Depend | | | ence | | | on | | | renal | | | dialys | | | is | | | Hyperk | | | alemia | | | | | | End | | | stage | | | renal | | | diseas | | | e | | | Acute | | | respir | | | atory | | | distre | | | ss | | | Nov 3, | | | 2019 | | | [facility] | | | [place] | | | [place] | | | Emerge | | | ncy | | | | | | Allerg | | | y | | | status | | | to | | | narcot | | | ic | | | agent | | | status | | | | | | Other | | | long | | | term | | | (curre | | | nt) | | | drug | | | therap | | | y | | | Hyperk | | | alemia | | | | | | Dyspne | | | a, | | | unspec | | | ified | | | | | | Depend | | | ence | | | on | | | renal | | | dialys | | | is | | | Shortn | | | ess of | | | | | | breath | | | | | | End | | | stage | | | renal | | | diseas | | | e | | | Allerg | | | y | | | status | | | to | | | oth | | | drug/m | | | eds/bi | | | ol | | | subst | | | status | | | | | | Radiog | | | raphic | | | dye | | | allerg | | | y | | | status | | | | | | Person | | | al | | | histor | | | y of | | | nicoti | | | ne | | | depend | | | ence | | | Oct | | | 30, | | | 2019 | | | [facility] | | | [place] | | | [place] | | | Emerge | | | ncy | | | Chest | | | pain, | | | | | | unspec | | | ified | | | | | | Shortn | | | ess of | | | | | | breath | | | | | | Pleura | | | l | | | effusi | | | on, | | | not | | | elsewh | | | ere | | | classi | | | fied | | | Oct 7, | | | 2019 | | | [facility] | | | | | | [facility] | | | al | | | [facility] | | | [place] | | | [place] | | | Emerge | | | ncy | | | Chest | | | Pain | | | | | | Fluid | | | overlo | | | ad, | | | unspec | | | ified | | | | | | Hypoxe | | | rhina | | | | | | Hyperk | | | alemia | | | | | | Lobar | | | pneumo | | | dontrell, | | | unspec | | | ified | | | organi | | | sm | | | Depend | | | ence | | | on | | | renal | | | dialys | | | is | | | Sepsis | | | , | | | unspec | | | ified | | | organi | | | sm | | | Sepsis | | | , u | | | End | | | stage | | | renal | | | diseas | | | e | | | Acute | | | and | | | chroni | | | c | | | respir | | | atory | | | failur | | | e with | | | | | | hyperc | | | apnia | | | | | | Acute | | | and | | | chroni | | | c | | | respir | | | atory | | | failur | | | e with | | | | | | hypoxi | | | a Oct | | | 6, | | | 2019 | | | [facility] | | | [place] | | | [place] | | | Emerge | | | ncy | | | | | | Shortn | | | ess of | | | | | | breath | | | | | | Chroni | | | c | | | pulmon | | | anne | | | edema | | | | | | Allerg | | | y | | | status | | | to | | | narcot | | | ic | | | agent | | | status | | | | | | Radiog | | | raphic | | | dye | | | allerg | | | y | | | status | | | | | | Person | | | al | | | histor | | | y of | | | nicoti | | | ne | | | depend | | | ence | | | | | | Other | | | long | | | term | | | (curre | | | nt) | | | drug | | | therap | | | y Sep | | | 25, | | | 2019 | | | [facility] | [facility] | [place] | | [place] | | | Emerge | | | ncy | | | | | | Chroni | | | c | | | kidney | | | | | | diseas | | | e, | | | unspec | | | ified | | | | | | Shortn | | | ess of | | | | | | breath | | | | | | Pleura | | | l | | | effusi | | | on, | | | not | | | elsewh | | | ere | | | classi | | | fied | | | | | | Heart | | | failur | | | e, | | | unspec | | | ified | | | | | | Allerg | | | y | | | status | | | to | | | narcot | | | ic | | | agent | | | status | | | | | | Allerg | | | y | | | status | | | to | | | oth | | | drug/m | | | eds/bi | | | ol | | | subst | | | status | | | | | | Radiog | | | raphic | | | dye | | | allerg | | | y | | | status | | | | | | Other | | | long | | | term | | | (curre | | | nt) | | | drug | | | therap | | | y | | | Person | | | al | | | histor | | | y of | | | nicoti | | | ne | | | depend | | | ence | | | Sep | | | 24, | | | 2019 | | | [facility] | | | [place] | | [place] | | | Emerge | | | ncy | | | | | | Shortn | | | ess of | | | | | | breath | | | | | | Pleura | | | l | | | effusi | | | on, | | | not | | | elsewh | | | ere | | | classi | | | fied | | | | | | Depend | | | ence | | | on | | | renal | | | dialys | | | is | | | Allerg | | | y | | | status | | | to | | | narcot | | | ic | | | agent | | | status | | | | | | Patien | | | t's | | | noncom | | | plianc | | | e w | | | oth | | | medica | | | l | | | treatm | | | ent | | | and | | | regime | | | n | | | Allerg | | | y | | | status | | | to | | | oth | | | drug/m | | | eds/bi | | | ol | | | subst | | | status | | | | | | Radiog | | | raphic | | | dye | | | allerg | | | y | | | status | | | | | | Other | | | long | | | term | | | (curre | | | nt) | | | drug | | | therap | | | y | | | Heart | | | failur | | | e, | | | unspec | | | ified | | | | | | Allerg | | | y | | | status | | | to | | | analge | | | sic | | | agent | | | status | | | Sep | | | 3, | | | 2019 | | | [facility] | [place] | | [place] | | | Emerge | | | ncy | | | Other | | | chest | | | pain | | | | | | Other | | | long | | | term | | | (curre | | | nt) | | | drug | | | therap | | | y | | | Allerg | | | y | | | status | | | to | | | analge | | | sic | | | agent | | | status | | | | | | Pleura | | | l | | | effusi | | | on, | | | not | | | elsewh | | | ere | | | classi | | | fied | | | | | | Depend | | | ence | | | on | | | renal | | | dialys | | | is | | | Radiog | | | raphic | | | dye | | | allerg | | | y | | | status | | | | | | Perica | | | rdial | | | effusi | | | on | | | (nonin | | | flamma | | | tory) | | | | | | Allerg | | | y | | | status | | | to | | | narcot | | | ic | | | agent | | | status | | | | | | Acute | | | respir | | | atory | | | failur | | | e with | | | | | | hypoxi | | | a | | | Chroni | | | c | | | pulmon | | | anne | | | edema | | | Aug | | | 14, | | | 2019 | | | [facility] | | | | | | [facility] | | | al | | | [facility] | | | [place] | | | [place] | | | Emerge | | | ncy | | | | | | Shortn | | | ess of | | | | | | Breath | | | | | | Depend | | | ence | | | on | | | renal | | | dialys | | | is | | | Pleura | | | l | | | effusi | | | on, | | | not | | | elsewh | | | ere | | | classi | | | fied | | | End | | | stage | | | renal | | | diseas | | | e | | | Shortn | | | ess of | | | | | | breath | | | | | | Recent | | | | | | Inpati | | | ent | | | Visit | | | [facility] | | | yDate | | | Facili | | | ty | | | City | | | State | | | Type | | | Diagno | | | ses or | | | Chief | | | | | | Compla | | | int | | | Oct 7, | | | 2019 | | | [facility] | | | | | | [facility] | | | al | | | [facility] | | | [place] | | | [place] | | | Inpati | | | ent | | | | | | Sepsis | | | , | | | unspec | | | ified | | | organi | | | sm | | | Sepsis | | | , u | | | | | | Chroni | | | c | | | pulmon | | | anne | | | edema | | | | | | Acute | | | and | | | chroni | | | c | | | respir | | | atory | | | failur | | | e with | | | | | | hypoxi | | | a | | | Nonrhe | | | umatic | | | | | | mitral | | | | | | (valve | | | ) | | | insuff | | | icienc | | | y | | | Anemia | | | in | | | chroni | | | c | | | kidney | | | | | | diseas | | | e | | | Depend | | | ence | | | on | | | renal | | | dialys | | | is | | | Perica | | | rdial | | | effusi | | | on | | | (nonin | | | flamma | | | tory) | | | | | | Left | | | ventri | | | cular | | | failur | | | e, | | | unspec | | | ified | | | | | | Acute | | | and | | | chroni | | | c | | | respir | | | atory | | | failur | | | e with | | | | | | hyperc | | | apnia | | | End | | | stage | | | renal | | | | | | diseas | | | e Aug | | | 14, | | | 2019 | | | [facility] | | | | | | [facility] | | | al | | | [facility] | | | [place] | | | [place] | | | Genera | | | l | | | Medici | | | ne | | | Shortn | | | ess of | | | | | | breath | | | | | | Pleura | | | l | | | effusi | | | on, | | | not | | | elsewh | | | ere | | | classi | | | fied | | | End | | | stage | | | renal | | | diseas | | | e | | | Depend | | | ence | | | on | | | renal | | | dialys | | | is | | | Nigel | | | 17, | | | 2019 | | | [facility] | | | | | | [facility] | | | al | | | [facility] | | | [place] | | | [place] | | | Genera | | | l | | | Medici | | | ne | | | Pleura | | | l | | | Effusi | | | on | | | Chroni | | | c | | | pulmon | | | anne | | | edema | | | May | | | 15, | | | 2019 | | | [facility] | | | | | | [facility] | | | al | | | [facility] | | | [place] | | | [place] | | | Genera | | | l | | | Medici | | | ne | | | Hypoxe | | | rhina | | | | | | Person | | | al | | | histor | | | y of | | | other | | | diseas | | | es of | | | urinar | | | y | | | system | | | | | | Fever, | | | | | | unspec | | | ified | | | | | | Pleura | | | l | | | effusi | | | on, | | | not | | | elsewh | | | ere | | | classi | | | fied | | | End | | | stage | | | renal | | | diseas | | | e | | | Depend | | | ence | | | on | | | renal | | | dialys | | | is | | | Anemia | | | in | | | chroni | | | c | | | kidney | | | | | | diseas | | | e | | | Pulmon | | | anne | | | hypert | | | ension | | | , | | | unspec | | | ified | | | | | | Chroni | | | c | | | right | | | heart | | | failur | | | e Mar | | | 23, | | | 2019 | | | [facility] | | | | | | [facility] | | | al | | | [facility] | | | [place] | | | [place] | | | Genera | | | l | | | Medici | | | ne | | | Acute | | | respir | | | atory | | | distre | | | ss | | | Chest | | | pain, | | | unspec | | | ified | | | | | | Pleura | | | l | | | effusi | | | on, | | | not | | | elsewh | | | ere | | | classi | | | fied | | | | | | Other | | | ascite | | | s | | | Depend | | | ence | | | on | | | renal | | | dialys | | | is | | | Hyperk | | | alemia | | | | | | Other | | | disord | | | ers of | | | | | | phosph | | | orus | | | metabo | | | lism | | | End | | | stage | | | renal | | | diseas | | | e | | | Oth | | | person | | | al | | | risk | | | factor | | | s, not | | | | | | elsewh | | | ere | | | classi | | | fied | | | | | | Acute | | | systol | | | ic | | | (conge | | | stive) | | | heart | | | | | | failur | | | e | | | Care | | | TeamPr | | | ovider | | | | | | Specia | | | lty | | | Phone | | | Fax | | | Servic | | | e | | | Dates | | | [facility] | | | EY, | | | MALCOL | | | M C, | | | MD | | | [employer] | | | al | | | Medici | | | ne | | | Mar | | | 25, | | | 2019 - | | | | | | Cur[facility] | | | t | | | [facility] | | | tive | | | Portal | | | This | | | patien | | | t has | | | regist | | | ered | | | at the | | | | | | [facility] | | | | | | [facility] | | | al | | | Medica | | | l | | | Center | | | | | | Emerge | | | ncy | | | Depart | | | ment | | | For | | | more | | | inform | | | ation | | | visit: | | | | | | https: | | | //secu | | | [email or web address] | | | lectiv | | | emedic | | | [email or web address] | | | /notif | | | [id number] | | | [id number] | | | [id number] | | | [id number] | | | [id number] | | | [id number] | | | eb | | | PLEASE | | | NOTE: | | | 1. | | | Any | | | care | | | recomm | | | endati | | | ons | | | and | | | other | | | clinic | | | al | | | inform | | | ation | | | are | | | provid | | | ed as | | | guidel | | | hugo | | | or for | | | | | | histor | | | ical | | | purpos | | | es | | | only, | | | and | | | provid | | | ers | | | should | | | | | | exerci | | | se | | | their | | | own | | | clinic | | | al | | | judgme | | | nt | | | when | | | provid | | | ing | | | care. | | | 2. | | | You | | | may | | | only | | | use | | | this | | | inform | | | ation | | | for | | | purpos | | | es of | | | treatm | | | ent, | | | paymen | | | t or | | | health | | | care | | | operat | | | ions | | | activi | | | ties, | | | and | | | subjec | | | t to | | | the | | | limita | | | tions | | | of | | | applic | | | able | | | [facility] | | | tive | | | Polici | | | es. | | | 3. | | | You | | | should | | | | | | consul | | | t | | | direct | | | ly | | | with | | | the | | | organi | | | zation | | | that | | | provid | | | ed a | | | care | | | guidel | | | ine or | | | other | | | | | | clinic | | | al | | | histor | | | y with | | | any | | | questi | | | ons | | | about | | | additi | | | onal | | | inform | | | ation | | | or | | | accura | | | cy or | | | comple | | | teness | | | of | | | inform | | | ation | | | provid | | | ed.? | | | 2019 | | | [facility] | | | tive | | | Medica | | | l | | | Techn[employer] | | | logies | | | , Inc[employer] | | | - | | | [email or web address] | | | llecti | | | vemedi | | | [email or web address] | | | m | +---+--------+ + +--------+ +---+ + | POC GLUCOSE (NON | Routin | 01/10/2019 | | Results for this | | ORD) | e | 11:54 AM | | procedure are in the | | | | PST | | results section. | + +--------+ +---+ + | POC GLUCOSE (NON | Routin | 01/10/2019 | | Results for this | | ORD) | e | 7:47 AM | | procedure are in the | | | | PST | | results section. | + +--------+ +---+ + | CBC NO DIFFERENTIAL | Routin | 01/10/2019 | | Results for this | | | e | 7:03 AM | | procedure are in the | | | | PST | | results section. | + +--------+ +---+ + | PHOSPHORUS | Routin | 01/10/2019 | | Results for this | | | e | 7:03 AM | | procedure are in the | | | | PST | | results section. | + +--------+ +---+ + | MAGNESIUM | Routin | 01/10/2019 | | Results for this | | | e | 7:03 AM | | procedure are in the | | | | PST | | results section. | + +--------+ +---+ + | BASIC METABOLIC | Routin | 01/10/2019 | | Results for this | | PANEL | e | 7:03 AM | | procedure are in the | | | | PST | | results section. | + +--------+ +---+ + | POC GLUCOSE (NON | Routin | 01/09/2019 | | Results for this | | ORD) | e | 9:10 PM | | procedure are in the | | | | PST | | results section. | + +--------+ +---+ + | POC GLUCOSE (NON | Routin | 01/09/2019 | | Results for this | | ORD) | e | 4:49 PM | | procedure are in the | | | | PST | | results section. | + +--------+ +---+ + | XR CHEST PA AND | Routin | 01/09/2019 | | Results for this | | LATERAL | e | 4:32 PM | | procedure are in the | | | | PST | | results section. | + +--------+ +---+ + | ECG 12 LEAD | STAT | 01/09/2019 | | Results for this | | | | 2:34 PM | | procedure are in the | | | | PST | | results section. | + +--------+ +---+ + | POC GLUCOSE (NON | Routin | 01/09/2019 | | Results for this | | ORD) | e | 12:11 PM | | procedure are in the | | | | PST | | results section. | + +--------+ +---+ + | COMPREHENSIVE | STAT | 01/09/2019 | | Results for this | | METABOLIC PANEL | | 9:40 AM | | procedure are in the | | | | PST | | results section. | + +--------+ +---+ + | CBC WITH | STAT | 01/09/2019 | | Results for this | | DIFFERENTIAL | | 9:40 AM | | procedure are in the | | | | PST | | results section. | + +--------+ +---+ + | POC GLUCOSE (NON | Routin | 01/09/2019 | | Results for this | | ORD) | e | 7:50 AM | | procedure are in the | | | | PST | | results section. | + +--------+ +---+ + | POC GLUCOSE (NON | Routin | 01/09/2019 | | Results for this | | ORD) | e | 6:19 AM | | procedure are in the | | | | PST | | results section. | + +--------+ +---+ + | POC GLUCOSE (NON | Routin | 01/08/2019 | | Results for this | | ORD) | e | 8:56 PM | | procedure are in the | | | | PST | | results section. | + +--------+ +---+ + | POC GLUCOSE (NON | Routin | 01/08/2019 | | Results for this | | ORD) | e | 4:53 PM | | procedure are in the | | | | PST | | results section. | + +--------+ +---+ + | POC GLUCOSE (NON | Routin | 01/08/2019 | | Results for this | | ORD) | e | 12:23 PM | | procedure are in the | | | | PST | | results section. | + +--------+ +---+ + | POC GLUCOSE (NON | Routin | 01/08/2019 | | Results for this | | ORD) | e | 7:35 AM | | procedure are in the | | | | PST | | results section. | + +--------+ +---+ + | COMPREHENSIVE | Routin | 01/08/2019 | | Results for this | | METABOLIC PANEL | e | 4:51 AM | | procedure are in the | | | | PST | | results section. | + +--------+ +---+ + | CBC NO DIFFERENTIAL | Routin | 01/08/2019 | | Results for this | | | e | 4:51 AM | | procedure are in the | | | | PST | | results section. | + +--------+ +---+ + | POC GLUCOSE (NON | Routin | 01/07/2019 | | Results for this | | ORD) | e | 9:07 PM | | procedure are in the | | | | PST | | results section. | + +--------+ +---+ + | POC GLUCOSE (NON | Routin | 01/07/2019 | | Results for this | | ORD) | e | 5:34 PM | | procedure are in the | | | | PST | | results section. | + +--------+ +---+ + | CT CHEST WO CONTRAST | STAT | 01/07/2019 | | Results for this | | | | 3:52 PM | | procedure are in the | | | | PST | | results section. | + +--------+ +---+ + | POC GLUCOSE (NON | Routin | 01/07/2019 | | Results for this | | ORD) | e | 11:56 AM | | procedure are in the | | | | PST | | results section. | + +--------+ +---+ + | HEPATITIS B SURFACE | STAT | 01/07/2019 | | Results for this | | AG | | 8:33 AM | | procedure are in the | | | | PST | | results section. | + +--------+ +---+ + | POC GLUCOSE (NON | Routin | 01/07/2019 | | Results for this | | ORD) | e | 7:14 AM | | procedure are in the | | | | PST | | results section. | + +--------+ +---+ + | XR CHEST AP PORTABLE | INOCENCIO | 01/07/2019 | | Results for this | | | | 4:18 AM | | procedure are in the | | | | PST | | results section. | + +--------+ +---+ + | ECG 12 LEAD | Routin | 01/07/2019 | | Results for this | | | e | 2:54 AM | | procedure are in the | | | | PST | | results section. | + +--------+ +---+ + | POC GLUCOSE (NON | Routin | 01/07/2019 | | Results for this | | ORD) | e | 2:42 AM | | procedure are in the | | | | PST | | results section. | + +--------+ +---+ + | POC GLUCOSE (NON | Routin | 01/07/2019 | | Results for this | | ORD) | e | 2:08 AM | | procedure are in the | | | | PST | | results section. | + +--------+ +---+ + | TROPONIN I | STAT | 01/07/2019 | | Results for this | | | | 1:40 AM | | procedure are in the | | | | PST | | results section. | + +--------+ +---+ + | COMPREHENSIVE | STAT | 01/07/2019 | | Results for this | | METABOLIC PANEL | | 1:40 AM | | procedure are in the | | | | PST | | results section. | + +--------+ +---+ + | CBC WITH | STAT | 01/07/2019 | | Results for this | | DIFFERENTIAL | | 1:40 AM | | procedure are in the | | | | PST | | results section. | + +--------+ +---+ + | THORACENTESIS | Routin | 01/07/2019 | | Results for this | | | e | 1:36 AM | | procedure are in the | | | | PST | | results section. | + +--------+ +---+ + | HEMODIALYSIS | Routin | 12/14/2018 | | Results for this | | | e | 9:52 AM | | procedure are in the | | | | PDT | | results section. | + +--------+ +---+ + | CBC WITH | Routin | 12/14/2018 | | Results for this | | DIFFERENTIAL | e | 6:10 AM | | procedure are in the | | | | PDT | | results section. | + +--------+ +---+ + | BASIC METABOLIC | Routin | 12/14/2018 | | Results for this | | PANEL | e | 6:10 AM | | procedure are in the | | | | PDT | | results section. | + +--------+ +---+ + | XR CHEST AP PORTABLE | Routin | 12/13/2018 | | Results for this | | | e | 3:39 PM | | procedure are in the | | | | PDT | | results section. | + +--------+ +---+ + | BASIC METABOLIC | Routin | 12/13/2018 | | Results for this | | PANEL | e | 5:27 AM | | procedure are in the | | | | PDT | | results section. | + +--------+ +---+ + | US GUIDED | Routin | 12/12/2018 | | Results for this | | THORACENTESIS WO | e | 1:53 PM | | procedure are in the | | CHEST TUBE | | PDT | | results section. | + +--------+ +---+ + | ECHO LIMITED | Routin | 12/12/2018 | | Results for this | | | e | 8:46 AM | | procedure are in the | | | | PDT | | results section. | + +--------+ +---+ + | C-REACTIVE PROTEIN | Routin | 12/12/2018 | | Results for this | | | e | 5:02 AM | | procedure are in the | | | | PDT | | results section. | + +--------+ +---+ + | CBC NO DIFFERENTIAL | Routin | 12/12/2018 | | Results for this | | | e | 5:02 AM | | procedure are in the | | | | PDT | | results section. | + +--------+ +---+ + | BASIC METABOLIC | Routin | 12/12/2018 | | Results for this | | PANEL | e | 5:02 AM | | procedure are in the | | | | PDT | | results section. | + +--------+ +---+ + | CULTURE, BLOOD | STAT | 12/12/2018 | | Results for this | | | | 5:02 AM | | procedure are in the | | | | PDT | | results section. | + +--------+ +---+ + | BASIC METABOLIC | Routin | 12/11/2018 | | Results for this | | PANEL | e | 7:46 PM | | procedure are in the | | | | PDT | | results section. | + +--------+ +---+ + | INFLUENZA A AND B | Routin | 12/11/2018 | | Results for this | | RNA, NAAT | e | 3:56 PM | | procedure are in the | | | | PDT | | results section. | + +--------+ +---+ + | FLU SWAB COLLECTION | Routin | 12/11/2018 | | Results for this | | | e | 3:46 PM | | procedure are in the | | | | PDT | | results section. | + +--------+ +---+ + | POC GLUCOSE (NON | Routin | 12/11/2018 | | Results for this | | ORD) | e | 8:31 AM | | procedure are in the | | | | PDT | | results section. | + +--------+ +---+ + | ECG 12 LEAD | STAT | 12/11/2018 | | Results for this | | | | 8:11 AM | | procedure are in the | | | | PDT | | results section. | + +--------+ +---+ + | PTT | Add-On | 12/11/2018 | | Results for this | | | | 8:06 AM | | procedure are in the | | | | PDT | | results section. | + +--------+ +---+ + | BASIC METABOLIC | STAT | 12/11/2018 | | Results for this | | PANEL | | 6:15 AM | | procedure are in the | | | | PDT | | results section. | + +--------+ +---+ + | CULTURE, BLOOD | STAT | 12/11/2018 | | Results for this | | | | 6:15 AM | | procedure are in the | | | | PDT | | results section. | + +--------+ +---+ + | CT CHEST ABDOMEN | INOCENCIO | 12/11/2018 | | Results for this | | PELVIS WO CONTRAST | | 2:12 AM | | procedure are in the | | | | PDT | | results section. | + +--------+ +---+ + | POC CG 4, ISTAT | Routin | 12/11/2018 | | Results for this | | ARTERIAL | e | 1:33 AM | | procedure are in the | | | | PDT | | results section. | + +--------+ +---+ + | RT BLOOD [facility] | STAT | 12/11/2018 | | | | OF CARE | | 1:17 AM | | | | | | PDT | | | + +--------+ +---+ + | LACTIC ACID | STAT | 12/11/2018 | | Results for this | | | | 1:04 AM | | procedure are in the | | | | PDT | | results section. | + +--------+ +---+ + | LACTIC ACID | STAT | 12/10/2018 | | Results for this | | | | 11:44 PM | | procedure are in the | | | | PDT | | results section. | + +--------+ +---+ + | CULTURE, BLOOD | STAT | 12/10/2018 | | Results for this | | | | 11:43 PM | | procedure are in the | | | | PDT | | results section. | + +--------+ +---+ + | XR CHEST AP PORTABLE | INOCENCIO | 12/10/2018 | | Results for this | | | | 11:24 PM | | procedure are in the | | | | PDT | | results section. | + +--------+ +---+ + | TROPONIN I | STAT | 12/10/2018 | | Results for this | | | | 11:02 PM | | procedure are in the | | | | PDT | | results section. | + +--------+ +---+ + | PROTIME INR | STAT | 12/10/2018 | | Results for this | | | | 11:02 PM | | procedure are in the | | | | PDT | | results section. | + +--------+ +---+ + | CBC WITH | STAT | 12/10/2018 | | Results for this | | DIFFERENTIAL | | 11:02 PM | | procedure are in the | | | | PDT | | results section. | + +--------+ +---+ + | PHOSPHORUS | STAT | 12/10/2018 | | Results for this | | | | 11:02 PM | | procedure are in the | | | | PDT | | results section. | + +--------+ +---+ + | MAGNESIUM | STAT | 12/10/2018 | | Results for this | | | | 11:02 PM | | procedure are in the | | | | PDT | | results section. | + +--------+ +---+ + | COMPREHENSIVE | STAT | 12/10/2018 | | Results for this | | METABOLIC PANEL | | 11:02 PM | | procedure are in the | | | | PDT | | results section. | + +--------+ +---+ + | ECG 12 LEAD | Routin | 12/10/2018 | | Results for this | | | e | 10:14 PM | | procedure are in the | | | | PDT | | results section. | + +--------+ +---+ + | ED INFORMATION | Routin | 12/10/2018 | | | | EXCHANGE | e | 10:01 PM | | | | | | PDT | | | + +--------+ +---+ + +---+--------+ | | | | | Proced | | | ure | | | Note - | | | Matt, | | | Lab In | | | | | | Hlseve | | | n - | | | | | | 2019 | | | 10:02 | | | PM PDT | | | | | | Format | | | ting | | | of | | | this | | | note | | | might | | | be | | | differ | | | ent | | | from | | | the | | | origin | | | al.COL | | | LECTIV | | | E?NOTI | | | FICATI | | | ON?10/ | | | 07/201 | | | 9 | | | 22:01? | | | BLANDON | | | ON, | | | DARA | | | | | | R?MRN: | | | | | | [id number] | | | [id number] | | | riteri | | | a Met | | | 2 in | | | 2 10 | | | in 12 | | | Care | | | Guidel | | | inesSe | | | curity | | | and | | | Safety | | | No | | | recent | | | | | | Securi | | | ty | | | Events | | | | | | curren | | | tly on | | | | | | fileED | | | Care | | | Guidel | | | inesTh | | | ere | | | are | | | curren | | | tly no | | | ED | | | Care | | | Guidel | | | hugo | | | for | | | this | | | patien | | | t. | | | Please | | | check | | | your | | | facili | | | ty's | | | medica | | | l | | | record | | | s | | | system | | | .Care | | | Histor | | | yMedic | | | al/Laura | | | [email or web address] | | | /26/19 | | | 12:00 | | | AM | | | [facility] | | [facility] | | | alED | | | CASE | | | MANAGE | | | MENT | | | CONSUL | | | T | | | RECEIV | | | ED- | | | [facility] | | | PROVID | | | ED TO | | | BASIL- | | | [facility] | | | OF | | | CLINIC | | | FOR | | | HIGH | | | RISK | | | FOLLOW | | | | | | UP.9/4 | | | /19 | | | 12:00 | | | AM | | | [facility] | | | [facility] | | | alDr | | | [facility] | | | ey has | | | not | | | seen | | | Pt | | | since | | | 4/5/20 | | | 19. | | | 5/9/20 | | | 19 Pt | | | cancel | | | ed | | | appt | | | w/ Dr | | | [facility] | | | ey5/15 | | | /2019 | | | Pt | | | [facility] | | | in | | | Walk-i | | | n | | | Clinic | | | 6/15/2 | | | 019 Pt | | | | | | cancel | | | ed | | | appt | | | w/ Dr | | | [facility] | | | ey7/9/ | | | 20.19 | | | Pt was | | | N/S | | | for | | | appt | | | w/ Dr | | | [facility] | | | ey | | | 3//1 | | | 9 | | | 12:00 | | | AM | | | [facility] | | | [facility] | | | al | | | PATIEN | | | T HAS | | | AN APT | | | WITH | | | PCP DR | | | | | | [facility] | | | EY ON | | | 07/09/ | | | 19. | | | PATIEN | | | T | | | NEPHRO | | | LOGIST | | | - DR | | | AKOUM- | | | (509) | | | [phone] | | | [phone] | | | Patien | | | t is | | | curren | | | tly | | | establ | | | ished | | | with | | | St | | | [facility] | | y | | | Clinic | | | . If | | | patien | | | t is | | | seen | | | in the | | | ED | | | during | | | | | | busine | | | ss | | | hours. | | | | | | Please | | | | | | contac | | | t [facility] | | | at St | | | | | | [facility] | | | y | | | Clinic | | | .Care | | | Recomm | | | endati | | | on:Thi | | | s | | | patien | | | t has | | | had 5 | | | or | | | more | | | Emerge | | | ncy | | | Depart | | | ment | | | visits | | | in | | | the | | | last | | | 12 | | | months | | | .? | | | Patien | | | t | | | requir | | | es | | | educat | | | ion on | | | the | | | scope | | | and | | | purpos | | | e of | | | the ED | | | as an | | | acute | | | care | | | provid | | | er not | | | a | | | Primar | | | y Care | | | | | | Provid | | | er and | | | | | | should | | | not | | | be | | | utiliz | | | ed for | | | | | | chroni | | | c | | | condit | | | ions.? | | | These | | | are | | | guidel | | | hugo | | | and | | | the | | | provid | | | er | | | should | | | | | | exerci | | | se | | | clinic | | | al | | | judgme | | | nt | | | when | | | provid | | | ing | | | care.P | | | rescri | | | ption | | | Drug | | | Report | | | (12 | | | Mo.)PD | | | MP | | | query | | | found | | | no | | | report | | | .E.D. | | | Visit | | | Count | | | (12 | | | mo.)Fa | | | cility | | | | | | Visits | | | Low | | | Acuity | | | | | | [facility] | | | | | | [facility] | | | al | | | Medica | | | l | | | Center | | | 5 0 | | | [facility] | | | [facility] | | | al 16 | | | 0 | | | Total | | | 21 0 | | | Note: | | | Visits | | | | | | indica | | | te | | | total | | | known | | | visits | | | . | | | Medica | | | id Low | | | | | | Acuity | | | Dx | | | are | | | the | | | number | | | of | | | primar | | | y | | | diagno | | | ses on | | | the | | | Medica | | | id's | | | Low | | | Acuity | | | dx | | | list. | | | | | | Recent | | | | | | Emerge | | | ncy | | | Depart | | | ment | | | Visit | | | [facility] | | | yShowi | | | ng 10 | | | most | | | recent | | | | | | visits | | | out | | | of 21 | | | in the | | | past | | | 12 | | | months | | | Date | | | Facili | | | ty | | | City | | | State | | | Type | | | Diagno | | | ses or | | | Chief | | | | | | Compla | | | int | | | Oct 7, | | | 2019 | | | [facility] | | | | | | [facility] | | | al | | | [facility] | | | [place] | | | [place] | | | Emerge | | | ncy | | | Chest | | | Pain | | | Oct | | | 6, | | | 2019 | | | [facility] | | | [place] | | | [place] | | | Emerge | | | ncy | | | Chief | | | Compla | | | int: | | | CHEST | | | PAIN, | | | SOB | | | Sep | | | 25, | | | 2019 | | | [facility] | | | [place] | | | [place] | | | Emerge | | | ncy | | | | | | Chroni | | | c | | | kidney | | | | | | diseas | | | e, | | | unspec | | | ified | | | | | | Shortn | | | ess of | | | | | | breath | | | | | | Pleura | | | l | | | effusi | | | on, | | | not | | | elsewh | | | ere | | | classi | | | fied | | | | | | Heart | | | failur | | | e, | | | unspec | | | ified | | | | | | Allerg | | | y | | | status | | | to | | | narcot | | | ic | | | agent | | | status | | | | | | Allerg | | | y | | | status | | | to | | | other | | | drugs, | | | | | | medica | | | ments | | | and | | | biolog | | | ical | | | substa | | | nces | | | status | | | | | | Radiog | | | raphic | | | dye | | | allerg | | | y | | | status | | | | | | Other | | | long | | | term | | | (curre | | | nt) | | | drug | | | therap | | | y | | | Person | | | al | | | histor | | | y of | | | nicoti | | | ne | | | depend | | | ence | | | Sep | | | 24, | | | 2019 | | | [facility] | | | [place] | | | [place] | | | Emerge | | | ncy | | | | | | Shortn | | | ess of | | | | | | breath | | | | | | Pleura | | | l | | | effusi | | | on, | | | not | | | elsewh | | | ere | | | classi | | | fied | | | | | | Depend | | | ence | | | on | | | renal | | | dialys | | | is | | | Allerg | | | y | | | status | | | to | | | narcot | | | ic | | | agent | | | status | | | | | | Patien | | | t's | | | noncom | | | plianc | | | e with | | | other | | | | | | medica | | | l | | | treatm | | | ent | | | and | | | regime | | | n | | | Allerg | | | y | | | status | | | to | | | other | | | drugs, | | | | | | medica | | | ments | | | and | | | biolog | | | ical | | | substa | | | nces | | | status | | | | | | Radiog | | | raphic | | | dye | | | allerg | | | y | | | status | | | | | | Other | | | long | | | term | | | (curre | | | nt) | | | drug | | | therap | | | y | | | Heart | | | failur | | | e, | | | unspec | | | ified | | | | | | Allerg | | | y | | | status | | | to | | | analge | | | sic | | | agent | | | status | | | Sep | | | 3, | | | 2019 | | | [facility] | [place] | [place] | | | Emerge | | | ncy | | | Other | | | chest | | | pain | | | | | | Other | | | long | | | term | | | (curre | | | nt) | | | drug | | | therap | | | y | | | Allerg | | | y | | | status | | | to | | | analge | | | sic | | | agent | | | status | | | | | | Pleura | | | l | | | effusi | | | on, | | | not | | | elsewh | | | ere | | | classi | | | fied | | | | | | Depend | | | ence | | | on | | | renal | | | dialys | | | is | | | Radiog | | | raphic | | | dye | | | allerg | | | y | | | status | | | | | | Perica | | | rdial | | | effusi | | | on | | | (nonin | | | flamma | | | tory) | | | | | | Allerg | | | y | | | status | | | to | | | narcot | | | ic | | | agent | | | status | | | | | | Acute | | | respir | | | atory | | | failur | | | e with | | | | | | hypoxi | | | a | | | Chroni | | | c | | | pulmon | | | anne | | | edema | | | Aug | | | 14, | | | 2019 | | | [facility] | | | | | | [facility] | | | al | | | [facility] | | | [place] | | | [place] | | | Emerge | | | ncy | | | | | | Shortn | | | ess of | | | | | | Breath | | | | | | Depend | | | ence | | | on | | | renal | | | dialys | | | is | | | Pleura | | | l | | | effusi | | | on, | | | not | | | elsewh | | | ere | | | classi | | | fied | | | End | | | stage | | | renal | | | diseas | | | e | | | Shortn | | | ess of | | | | | | breath | | | Aug | | | 13, | | | 2019 | | | [facility] | [facility] | [place] | | [place] | | | Emerge | | | ncy | | | | | | Shortn | | | ess of | | | | | | breath | | | | | | Thromb | | | ocytop | | | enia, | | | unspec | | | ified | | | | | | Allerg | | | y | | | status | | | to | | | other | | | drugs, | | | | | | medica | | | ments | | | and | | | biolog | | | ical | | | substa | | | nces | | | status | | | | | | Allerg | | | y | | | status | | | to | | | narcot | | | ic | | | agent | | | status | | | | | | Other | | | pulmon | | | anne | | | emboli | | | sm | | | withou | | | t | | | acute | | | cor | | | pulmon | | | pablo | | | Acute | | | | | | kidney | | | | | | failur | | | e, | | | unspec | | | ified | | | | | | Patien | | | t's | | | other | | | noncom | | | plianc | | | e with | | | | | | medica | | | tion | | | regime | | | n | | | Chroni | | | c | | | kidney | | | | | | diseas | | | e, | | | unspec | | | ified | | | | | | Radiog | | | raphic | | | dye | | | allerg | | | y | | | status | | | | | | Depend | | | ence | | | on | | | renal | | | dialys | | | is | | | Nigel | | | 17, | | | 2019 | | | [facility] | [facility] | [place] | | | [place] | | | Emerge | | | ncy | | | | | | Depend | | | ence | | | on | | | renal | | | dialys | | | is | | | Chroni | | | c | | | kidney | | | | | | diseas | | | e, | | | unspec | | | ified | | | | | | Allerg | | | y | | | status | | | to | | | other | | | drugs, | | | | | | medica | | | ments | | | and | | | biolog | | | ical | | | substa | | | nces | | | status | | | | | | Chroni | | | c | | | pulmon | | | anne | | | edema | | | | | | Other | | | long | | | term | | | (curre | | | nt) | | | drug | | | therap | | | y | | | Allerg | | | y | | | status | | | to | | | narcot | | | ic | | | agent | | | status | | | | | | Dyspne | | | a, | | | unspec | | | ified | | | | | | Radiog | | | raphic | | | dye | | | allerg | | | y | | | status | | | Nigel | | | 10, | | | 2019 | | | [facility] | [facility] | [place] | | | [place] | | | Emerge | | | ncy | | | | | | Allerg | | | y | | | status | | | to | | | other | | | drugs, | | | | | | medica | | | ments | | | and | | | biolog | | | ical | | | substa | | | nces | | | status | | | | | | Pleura | | | l | | | effusi | | | on, | | | not | | | elsewh | | | ere | | | classi | | | fied | | | End | | | stage | | | renal | | | diseas | | | e | | | Allerg | | | y | | | status | | | to | | | narcot | | | ic | | | agent | | | status | | | | | | Hyperk | | | alemia | | | | | | Other | | | specif | | | ied | | | abnorm | | | alitie | | | s of | | | plasma | | | | | | protei | | | ns | | | Other | | | long | | | term | | | (curre | | | nt) | | | drug | | | therap | | | y | | | Radiog | | | raphic | | | dye | | | allerg | | | y | | | status | | | | | | Depend | | | ence | | | on | | | renal | | | dialys | | | is | | | Chest | | | pain, | | | unspec | | | ified | | | Nigel | | | 10, | | | 2019 | | | [facility] | | | | | | [facility] | | | al | | | [facility] | | | [place] | | | [place] | | | Emerge | | | ncy | | | Recent | | | | | | Inpati | | | ent | | | Visit | | | [facility] | | | yDate | | | Facili | | | ty | | | City | | | State | | | Type | | | Diagno | | | ses or | | | Chief | | | | | | Compla | | | int | | | Aug | | | 14, | | | 2019 | | | [facility] | | | | | | [facility] | | | al | | | [facility] | | | [place] | | | [place] | | | Genera | | | l | | | Medici | | | ne | | | Shortn | | | ess of | | | | | | breath | | | | | | Pleura | | | l | | | effusi | | | on, | | | not | | | elsewh | | | ere | | | classi | | | fied | | | End | | | stage | | | renal | | | diseas | | | e | | | Depend | | | ence | | | on | | | renal | | | dialys | | | is | | | Nigel | | | 17, | | | 2019 | | | [facility] | | | | | | [facility] | | | al | | | [facility] | | | [place] | | | [place] | | | Genera | | | l | | | Medici | | | ne | | | Pleura | | | l | | | Effusi | | | on | | | Chroni | | | c | | | pulmon | | | anne | | | edema | | | May | | | 15, | | | 2019 | | | [facility] | | | | | | [facility] | | | al | | | [facility] | | | [place] | | | [place] | | | Genera | | | l | | | Medici | | | ne | | | Hypoxe | | | rhina | | | | | | Person | | | al | | | histor | | | y of | | | other | | | diseas | | | es of | | | urinar | | | y | | | system | | | | | | Fever, | | | | | | unspec | | | ified | | | | | | Pleura | | | l | | | effusi | | | on, | | | not | | | elsewh | | | ere | | | classi | | | fied | | | End | | | stage | | | renal | | | diseas | | | e | | | Depend | | | ence | | | on | | | renal | | | dialys | | | is | | | Anemia | | | in | | | chroni | | | c | | | kidney | | | | | | diseas | | | e | | | Pulmon | | | anne | | | hypert | | | ension | | | , | | | unspec | | | ified | | | | | | Chroni | | | c | | | right | | | heart | | | failur | | | e Mar | | | 23, | | | 2019 | | | [facility] | | | | | | [facility] | | | al | | | [facility] | | | [place] | | | [place] | | | Genera | | | l | | | Medici | | | ne | | | Acute | | | respir | | | atory | | | distre | | | ss | | | Chest | | | pain, | | | unspec | | | ified | | | | | | Pleura | | | l | | | effusi | | | on, | | | not | | | elsewh | | | ere | | | classi | | | fied | | | | | | Other | | | ascite | | | s | | | Depend | | | ence | | | on | | | renal | | | dialys | | | is | | | Hyperk | | | alemia | | | | | | Other | | | disord | | | ers of | | | | | | phosph | | | orus | | | metabo | | | lism | | | End | | | stage | | | renal | | | diseas | | | e | | | Other | | | specif | | | ied | | | person | | | al | | | risk | | | factor | | | s, not | | | | | | elsewh | | | ere | | | classi | | | fied | | | | | | Acute | | | systol | | | ic | | | (conge | | | stive) | | | heart | | | | | | failur | | | e | | | Care | | | TeamPr | | | ovider | | | | | | Specia | | | lty | | | Phone | | | Fax | | | Servic | | | e | | | Dates | | | [facility] | | | EY, | | | [facility] | | | M C, | | | MD | | | [employer] | | | al | | | Medici | | | ne | | | Mar | | | 25, | | | 2019 - | | | | | | Curren | | | t | | | [facility] | | | tive | | | Portal | | | This | | | patien | | | t has | | | regist | | | ered | | | at the | | | | | | [facility] | | | | | | [facility] | | | al | | | Medica | | | l | | | Center | | | | | | Emerge | | | ncy | | | Depart | | | ment | | | For | | | more | | | inform | | | ation | | | visit: | | | | | | https: | | | //secu | | | re.col | | | lectiv | | | emedic | | | al.com | | | /notif | | | [id number] | | | 12ca-b | | | [id number] | | | [id number] | | | [id number] | | | du110n | | | 2b | | | PLEASE | | | NOTE: | | | 1. | | | Any | | | care | | | recomm | | | endati | | | ons | | | and | | | other | | | clinic | | | al | | | inform | | | ation | | | are | | | provid | | | ed as | | | guidel | | | hugo | | | or for | | | | | | histor | | | ical | | | purpos | | | es | | | only, | | | and | | | provid | | | ers | | | should | | | | | | exerci | | | se | | | their | | | own | | | clinic | | | al | | | judgme | | | nt | | | when | | | provid | | | ing | | | care. | | | 2. | | | You | | | may | | | only | | | use | | | this | | | inform | | | ation | | | for | | | purpos | | | es of | | | treatm | | | ent, | | | paymen | | | t or | | | health | | | care | | | operat | | | ions | | | activi | | | ties, | | | and | | | subjec | | | t to | | | the | | | limita | | | tions | | | of | | | applic | | | able | | | [facility] | | | tive | | | Polici | | | es. | | | 3. | | | You | | | should | | | | | | consul | | | t | | | direct | | | ly | | | with | | | the | | | organi | | | zation | | | that | | | provid | | | ed a | | | care | | | guidel | | | ine or | | | other | | | | | | clinic | | | al | | | histor | | | y with | | | any | | | questi | | | ons | | | about | | | additi | | | onal | | | inform | | | ation | | | or | | | accura | | | cy or | | | comple | | | teness | | | of | | | inform | | | ation | | | provid | | | ed.? | | | 2019 | | | [facility] | | | tive | | | Medica | | | l | | | Techn[employer] | | | logies | | | , Inc[employer] | | | - | | | [email or web address] | | | llecti | | | vemedi | | | [email or web address] | | | m | +---+--------+ from Last 3 Months Results CBC no Differential (01/26/2019 5:37 AM PST)Only the most recent of 5 results within the t bridgette period is included. + + + + + + | Component | Value | Ref Range | Performed | Pathologist | | | | | At | Signature | + + + + + + | WBC | 4.50 | 3.80 - 11.00 | [facility] | | | | | K/uL | LABORATORY | | + + + + + + | RBC | 2.52 (L) | 3.70 - 5.10 | [facility] | | | | | M/uL | LABORATORY | | + + + + + + | Hemoglobin | 9.5 (L) | 11.3 - 15.5 | [facility] | | | | | g/dL | LABORATORY | | + + + + + + | Hematocrit | 27.7 (L) | 34.0 - 46.0 % | [facility] | | | | | | LABORATORY | | + + + + + + | MCV | 109.7 (H) | 80.0 - 100.0 fl | [facility] | | | | | | LABORATORY | | + + + + + + | MCH | 37.4 (H) | 27.0 - 34.0 pg | [facility] | | | | | | LABORATORY | | + + + + + + | MCHC | 34.1 | 32.0 - 35.5 | [facility] | | | | | g/dL | LABORATORY | | + + + + + + | RDW-SD | 60.4 (H) | 37 - 53 fl | [facility] | | | | | | LABORATORY | | + + + + + + | Platelet | 107 (L) | 150 - 400 K/uL | [facility] | | | Count | | | LABORATORY | | + + + + + + | MPV | 10.6Comment: Testing | fl | [facility] | | | | performed at [facility], [address] | | LABORATORY | | | | [address], | | | | | | [place] [address] | | | | + + + + + + + + | Specimen | + + | | + + + + + + + | Performing | Address | City/State/Zipcode | Phone Number | | Organization | | | | + + + + + | [facility] | [address] | [place] [address] | [phone] | + + + + + Magnesium (01/26/2019 5:37 AM PST)Only the most recent of 5 results within the time period is included. + + + + + + | Component | Value | Ref Range | Performed | Pathologist | | | | | At | Signature | + + + + + + | Magnesium | 2.2Comment: Testing | 1.7 - 2.4 mg/dL | [facility] | | | | performed at [facility], [address] | LABORATORY | | | | [address], | | | | | | [place] [address] | | | | + + + + + + + + | Specimen | + + | | + + + + + + + | Performing | Address | City/State/Zipcode | Phone Number | | Organization | | | | + + + + + | [facility] | [address] | [place] [address] | [phone] | + + + + + Renal Function Panel (01/26/2019 5:37 AM PST)Only the most recent of 2 results within the time period is included. + + + + + + | Component | Value | Ref Range | Performed | Pathologist | | | | | At | Signature | + + + + + + | Na | 140 | 135 - 145 | [facility] | | | | | mmol/L | LABORATORY | | + + + + + + | K | 4.0 | 3.5 - 4.9 | [facility] | | | | | mmol/L | LABORATORY | | + + + + + + | Cl | 105 | 99 - 109 mmol/L | [facility] | | | | | | LABORATORY | | + + + + + + | CO2 | 29 | 23 - 32 mmol/L | [facility] | | | | | | LABORATORY | | + + + + + + | Anion Gap | 10 | 5 - 20 mmol/L | [facility] | | | | | | LABORATORY | | + + + + + + | Glucose | 94 | 65 - 99 mg/dL | [facility] | | | | | | LABORATORY | | + + + + + + | BUN | 17 | 8 - 25 mg/dL | [facility] | | | | | | LABORATORY | | + + + + + + | Creatinine | 4.5 (H) | 0.50 - 1.00 | [facility] | | | | | mg/dL | LABORATORY | | + + + + + + | Calcium | 8.7 | 8.5 - 10.5 | [facility] | | | | | mg/dL | LABORATORY | | + + + + + + | Albumin | 3.0 (L) | 3.6 - 5.0 g/dL | [facility] | | | | | | LABORATORY | | + + + + + + | Phosphorus | 4.9 (H) | 2.3 - 4.8 mg/dL | [facility] | | | | | | LABORATORY | | + + + + + + | Estimated | 12 (L)Comment: GFR <60: | >60 | [facility] | | | GFR | CHRONIC KIDNEY DISEASE, | mL/min/1.73m2 | LABORATORY | | | | IF FOUND OVER A 3 MONTH | | | | | | PERIOD.GFR <15: KIDNEY | | | | | | FAILURE.FOR | | | | | | AMERICANS, MULTIPLY THE | | | | | | CALCULATED GFR BY | | | | | | 1.210.This eGFR is | | | | | | calculated using the | | | | | | MDRD IDMS traceable | | | | | | equation.Testing | | | | | | performed at [facility], [address] | | | | | | [address] [facility], | | | | | | [place] [address] | | | | + + + + + + + + | Specimen | + + | Blood | + + + + + + + | Performing | Address | City/State/Zipcode | Phone Number | | Organization | | | | + + + + + | [facility] | [address] | [place] [address] | [phone] | + + + + + HEMODIALYSIS (01/25/2019 6:45 PM PST) + + + | Narrative | Performed At | + + + | René Anguiano MD 02/25/2019 10:11 AM Principal Problem: | | | Acute hypoxemic respiratory failure Active Problems: ESRD on | | | hemodialysis Uncontrolled hypertension Recurrent right | | | pleural effusion Acute respiratory distress History of | | | Henoch-Schonlein purpura Chronic combined systolic and diastolic | | | heart failure Non-rheumatic mitral regurgitation Acute on | | | chronic combined systolic and diastolic CHF (congestive heart | | | failure) This is a late entry of an encounter during dialysis on | | | the date/time as above. The patient is seen & examined during | | | dialysis. she says that she feels 'ok' today. she denies any | | | dizziness, cp, sob, abd pain, n/v. The following portions of | | | the patient's history were reviewed and updated as appropriate: | | | laboratory data, allergies, current medications, and problem list. | | | P.E. BP 165/94, P 87 General appearance: Pleasant, not in acute | | | distress. Lungs: Clear to auscultation bilaterally. There are no | | | wheezes. Heart: Regular rate and rhythm without any rub, gallop. | | | Grade 3/6 systolic murmur best heard at the apex. Abdominal exam: | | | Soft and nontender with normal bowel sounds. Extremities: Warm | | | to touch with no leg edema. There is no cyanosis. Neurological: | | | Awake, alert, and oriented to time, place, and person. Normal | | | gross motor power. There is no asterixis. Access: left arm AV | | | fistula with good flow Labs from earlier this AM reviewed | | | Assessment: Ms. Weldon is a 23 y.o. female patient with ESRD, HD. | | | Severe non-compliance with dialysis. Severe non compliance with renal | | | diet restrictions. Anemia in ESRD hyperPhos hypoalbuminemia | | | -Presented with: "Shortness of Breath ("I have fluid in my lung and | | | it needs to be tapped", pt has not been to dialysis for her last two | | | appointments) -Admitted with: "SOB (shortness of breath) [R06.02] | | | ESRD needing dialysis (HCC) [N18.6, Z99.2] Chronic pleural effusion | | | [J90] Complications identified during her dialysis treatment: none | | | so far. Recommendations: UF as tolerated Prot suppl stressed | | | Diet restrictions stressed again Fluid restrictions also stressed | | | IV Epo with HD as ordered Next dialysis treatment per the submitted | | | orders. René Anguiano MD | | + + + Iron and Iron Binding Capacity (01/24/2019 5:53 AM PST) + + + + + + | Component | Value | Ref Range | Performed | Pathologist | | | | | At | Signature | + + + + + + | Iron | 81 | 30 - 180 ug/dL | [facility] | | | | | | LABORATORY | | + + + + + + | Iron | 246 (L) | 260 - 490 ug/dL | [facility] | | | Binding | | | LABORATORY | | | Capacity | | | | | + + + + + + | Iron | 33Comment: Testing | 15 - 50 % | [facility] | | | Saturation | performed at [facility], [address] | | LABORATORY | | | | [address], | | | | | | [place] [address] | | | | + + + + + + + + | Specimen | + + | Blood | + + + + + + + | Performing | Address | City/State/Zipcode | Phone Number | | Organization | | | | + + + + + | [facility] | [address] | [place] [address] | [phone] | + + + + + Troponin I (01/24/2019 5:53 AM PST)Only the most recent of 4 results within the time rona de la cruz is included. + + + + + + | Component | Value | Ref Range | Performed | Pathologist | | | | | At | Signature | + + + + + + | Troponin I | 0.228 (H)Comment: 0.04 | 0.00 - 0.04 | [facility] | | | | ng/mL or less | ng/mL | LABORATORY | | | | Negative, repeat | | | | | | testing in four to six | | | | | | hour ifclinically | | | | | | indicted0.05 to 0.77 | | | | | | ng/mL | | | | | | Suspicious for | | | | | | myocardial injury. | | | | | | Serial measurementsmay | | | | | | be necessary to confirm | | | | | | or exclude the diagnosis | | | | | | of acute | | | | | | coronarysyndrome. Repeat | | | | | | testing in four to six | | | | | | hours if indicated.0.78 | | | | | | or greater ng/mL | | | | | | Consistent with | | | | | | myocardial injury. | | | | | | Clinical andlaboratory | | | | | | correlation recommended. | | | | | | Testing performed at | | | | | | [facility];[address] | | | | | | [facility];[place] [address] | | | | + + + + + + + + | Specimen | + + | Blood | + + + + + + + | Performing | Address | City/State/Zipcode | Phone Number | | Organization | | | | + + + + + | [facility] | [address] | [place] [address] | [phone] | + + + + + CBC with Differential (01/24/2019 5:53 AM PST)Only the most recent of 6 results within the time period is included. + + +---- + + + | Component | Value | Ref Range | Performed | Pathologist | | | | | At | Signature | + + +---- + + + | WBC | 8.21 | 3.8 0 - 11.00 | [facility] | | | | | K/u L | LABORATORY | | + + +---- + + + | RBC | 2.92 (L) | 3.7 0 - 5.10 | [facility] | | | | | M/u L | LABORATORY | | + + +---- + + + | Hemoglobin | 10.7 (L) | 11. 3 - 15.5 | [facility] | | | | | g/d L | LABORATORY | | + + +---- + + + | Hematocrit | 32.2 (L) | 34. 0 - 46.0 % | [facility] | | | | | | LABORATORY | | + + +---- + + + | MCV | 110.4 (H) | 80. 0 - 100.0 fl | [facility] | | | | | | LABORATORY | | + + +---- + + + | MCH | 36.5 (H) | 27. 0 - 34.0 pg | [facility] | | | | | | LABORATORY | | + + +---- + + + | MCHC | 33.1 | 32. 0 - 35.5 | [facility] | | | | | g/d L | LABORATORY | | + + +---- + + + | RDW-SD | 63.0 (H) | 37 - 53 fl | [facility] | | | | | | LABORATORY | | + + +---- + + + | Platelet | 112 (L) | 150 - 400 K/uL | [facility] | | | Count | | | LABORATORY | | + + +---- + + + | MPV | 11.1 | fl | [facility] | | | | | | LABORATORY | | + + +---- + + + | Diff Type | AUTOMATED | | [facility] | | | | | | LABORATORY | | + + +---- + + + | % | 79.22 | % | [facility] | | | Neutrophils | | | LABORATORY | | + + +---- + + + | % | 9.65 | % | [facility] | | | Lymphocytes | | | LABORATORY | | + + +---- + + + | Monocyte % | 4.77 | % | [facility] | | | | | | LABORATORY | | + + +---- + + + | Eosinophils | 5.40 | % | [facility] | | | % | | | LABORATORY | | + + +---- + + + | Basophils % | 0.96 | % | [facility] | | | | | | LABORATORY | | + + +---- + + + | Neutrophils | 6.51 | 1.9 0 - 7.40 | [facility] | | | , Absolute | | K/u L | LABORATORY | | + + +---- + + + | Absolute | 0.79 (L) | 1.0 0 - 3.90 | [facility] | | | Lymphocytes | | K/u L | LABORATORY | | + + +---- + + + | Absolute | 0.39 | 0.0 0 - 0.80 | [facility] | | | Monocytes | | K/u L | LABORATORY | | + + +---- + + + | Eosinophils | 0.44 | 0.0 0 - 0.50 | [facility] | | | , Absolute | | K/u L | LABORATORY | | + + +---- + + + | Basophils, | 0.08 | 0.0 0 - 0.10 | [facility] | | | Absolute | | K/u L | LABORATORY | | + + +---- + + + | RBC | 2+Comment: | | [facility] | | | Morphology | ANISO2+MACRONORMAL PLT | | LABORATORY | | | | MORPHTesting performed | | | | | | at [facility], [address] | | | | [address], | | | | | | [place] [address] | | | | | |Testing performed at [facility], [address], [place] [address] | | | | | | | | | | + + +---- + + + + + | Specimen | + + | Blood | + + + + + + + | Performing | Address | City/State/Zipcode | Phone Number | | Organization | | | | + + + + + | [facility] | [address] | [place] [address] | [phone] | + + + + + Phosphorus (01/24/2019 5:53 AM PST)Only the most recent of 4 results within the time rona de la cruz is included. + + + + + + | Component | Value | Ref Range | Performed | Pathologist | | | | | At | Signature | + + + + + + | Phosphorus | 8.6 (H)Comment: Testing | 2.3 - 4.8 mg/dL | [facility] | | | | performed at [facility], [address] | | LABORATORY | | | | [address], | | | | | | [place] [address] | | | | + + + + + + + + | Specimen | + + | Blood | + + + + + + + | Performing | Address | City/State/Zipcode | Phone Number | | Organization | | | | + + + + + | [facility] | [address] | [place] [address] | [phone] | + + + + + Ferritin (01/24/2019 5:53 AM PST) + + + + + + | Component | Value | Ref Range | Performed | Pathologist | | | | | At | Signature | + + + + + + | Ferritin | 805 (H)Comment: Testing | 6 - 170 ng/mL | [facility] | | | | performed at [facility], [address] | | LABORATORY | | | | [address], | | | | | | [place] [address] | | | | + + + + + + + + | Specimen | + + | Blood | + + + + + + + | Performing | Address | City/State/Zipcode | Phone Number | | Organization | | | | + + + + + | [facility] | [address] | [place] [address] | [phone] | + + + + + Creatine Kinase, Isoenzymes (01/24/2019 5:53 AM PST) + + + + + + | Component | Value | Ref Range | Performed | Pathologist | | | | | At | Signature | + + + + + + | CK-MM | 100Comment: Testing | 97 - 100 % | [facility] | | | | performed by [facility], | | LABORATORY | | | | [address], | | | | | | [facility] [address] | | | | + + + + + + | CK-MB | 0Comment: Testing | 0 - 3 % | [facility] | | | | performed by [facility], | | LABORATORY | | | | [address] [facility], | | | | | | [facility] [address] | | | | + + + + + + | CK-BB | 0Comment: Testing | 0 % | [facility] | | | | performed by [facility], | | LABORATORY | | | | [address] [facility], | | | | | | [place] [address] | | | | + + + + + + | CK, Total | 156Comment: Testing | 24 - 173 U/L | [facility] | | | | performed at [facility], | | LABORATORY | | | | [address], [address], | | | | | | [facility] [address] | | | | + + + + + + | CK-MACRO | 0 | Not Observed % | [facility] | | | TYPE 1 | | | LABORATORY | | + + + + + + | CK-MACRO | 0Comment: Testing | Not Observed % | [facility] | | | TYPE II | performed by [facility], | | LABORATORY | | | | [address], | | | | | | [place] [address] | | | | + + + + + + + + | Specimen | + + | Blood | + + + + + + + | Performing | Address | City/State/Zipcode | Phone Number | | Organization | | | | + + + + + | [facility] | [address] | [place] [address] | [phone] | + + + + + Basic Metabolic Panel (01/24/2019 5:53 AM PST)Only the most recent of 7 results within the time period is included. + + + + + + | Component | Value | Ref Range | Performed | Pathologist | | | | | At | Signature | + + + + + + | Na | 140 | 135 - 145 | [facility] | | | | | mmol/L | LABORATORY | | + + + + + + | K | 5.6 (H) | 3.5 - 4.9 | [facility] | | | | | mmol/L | LABORATORY | | + + + + + + | Cl | 103 | 99 - 109 mmol/L | [facility] | | | | | | LABORATORY | | + + + + + + | CO2 | 24 | 23 - 32 mmol/L | [facility] | | | | | | LABORATORY | | + + + + + + | Anion Gap | 19 | 5 - 20 mmol/L | [facility] | | | | | | LABORATORY | | + + + + + + | Glucose | 96 | 65 - 99 mg/dL | [facility] | | | | | | LABORATORY | | + + + + + + | BUN | 64 (H) | 8 - 25 mg/dL | [facility] | | | | | | LABORATORY | | + + + + + + | Creatinine | 11.2 (H) | 0.50 - 1.00 | [facility] | | | | | mg/dL | LABORATORY | | + + + + + + | BUN/Creatin | 6 | | [facility] | | | ine Ratio | | | LABORATORY | | + + + + + + | Calcium | 9.7 | 8.5 - 10.5 | [facility] | | | | | mg/dL | LABORATORY | | + + + + + + | Estimated | 4 (L)Comment: GFR <60: | >60 | [facility] | | | GFR | CHRONIC KIDNEY DISEASE, | mL/min/1.73m2 | LABORATORY | | | | IF FOUND OVER A 3 MONTH | | | | | | PERIOD.GFR <15: KIDNEY | | | | | | FAILURE.FOR | | | | | | AMERICANS, MULTIPLY THE | | | | | | CALCULATED GFR BY | | | | | | 1.210.This eGFR is | | | | | | calculated using the | | | | | | MDRD IDSD traceable | | | | | | equation.Testing | | | | | | performed at [facility], [address] | | | | | | [facility], | | | | | | [place] [address] | | | | + + + + + + + + | Specimen | + + | Blood | + + + + + + + | Performing | Address | City/State/Zipcode | Phone Number | | Organization | | | | + + + + + | [facility] | [address] | [place] [address] | [phone] | + + + + + XR Chest AP Portable (01/24/2019 1:35 AM [facility])Only the most recent of 4 results within the time period is included. + + | Specimen | + + | | + + + + + | Impressions | Performed At | + + + | Improved right lung aeration. Persistent dense right lung opacity | [facility] | | probably representing residual pleural effusion and atelectasis. | | | Mild cardiomegaly with pulmonary edema. Signed by: | | | Eliza Lloyd, Casimiro Sign Date/Time: 01/24/2019 2:12 AM | | + + + + + + | Narrative | Performed At | + + + | CHEST PORTABLE ONE VIEW CLINICAL INFORMATION: Post | [facility] | | thoracentesis. COMPARISON: XR CHEST 2 VIEWS (01/23/2019); XR | | | CHEST PA AND LATERAL (01/09/2019); CT CHEST WO CONTRAST (01/07/2019); | | | XR CHEST AP PORTABLE (01/07/2019); CHEST TWO VIEWS [id number] (01/06/2019); | | | FINDINGS: Mild cardiomegaly. No pneumothorax. Interstitial | | | pulmonary edema with a improved right lung aeration. Persistent | | | dense opacity at the right lung base probably representing a | | | combination of residual pleural effusion and atelectasis. No acute | | | bone abnormalities. | | + + + + + | Procedure Note | + + | Matt, Rad Results In - 01/24/2019 2:16 AM PST | | CHEST PORTABLE ONE VIEW | | | | CLINICAL INFORMATION: | | Post thoracentesis. | | | | COMPARISON: | | XR CHEST 2 VIEWS (01/23/2019); XR CHEST PA AND LATERAL (01/09/2019); CT | | CHEST WO CONTRAST (01/07/2019); XR CHEST AP PORTABLE (01/07/2019); CHEST | | TWO VIEWS [id number] (01/06/2019); | | | | FINDINGS: | | Mild cardiomegaly. No pneumothorax. Interstitial pulmonary edema with | | a improved right lung aeration. Persistent dense opacity at the right | | lung base probably representing a combination of residual pleural | | effusion and atelectasis. No acute bone abnormalities. | | | | IMPRESSION: | | Improved right lung aeration. Persistent dense right lung opacity | | probably representing residual pleural effusion and atelectasis. Mild | | cardiomegaly with pulmonary edema. | | | | | | | | Signed by: Eliza Lloyd Zachary | | Sign Date/Time: 01/24/2019 2:12 AM | + + + +---------+ + + | Performing | Address | City/State/Zipcode | Phone Number | | Organization | | | | + +---------+ + + | [facility] | | | | + +---------+ + + B Type Natriuretic Peptide (01/23/2019 11:27 PM PST) + + + + + + | Component | Value | Ref Range | Performed | Pathologist | | | | | At | Signature | + + + + + + | BNP | 4,312.07 (H)Comment: | 0 - 100 pg/mL | [facility] | | | | Testing performed at | | LABORATORY | | | | [facility];[address] | | | | | | [address];[place] [address] | | | | + + + + + + + + | Specimen | + + | Blood | + + + + + + + | Performing | Address | City/State/Zipcode | Phone Number | | Organization | | | | + + + + + | [facility] | [address] | [place] [address] | [phone] | + + + + + Comprehensive Metabolic Panel (01/23/2019 11:26 PM PST)Only the most recent of 5 results wi thin the time period is included. + + + + + + | Component | Value | Ref Range | Performed | Pathologist | | | | | At | Signature | + + + + + + | Na | 144 | 135 - 145 | [facility] | | | | | mmol/L | LABORATORY | | + + + + + + | K | 5.2 (H) | 3.5 - 4.9 | [facility] | | | | | mmol/L | LABORATORY | | + + + + + + | Cl | 104 | 99 - 109 mmol/L | [facility] | | | | | | LABORATORY | | + + + + + + | CO2 | 26 | 23 - 32 mmol/L | [facility] | | | | | | LABORATORY | | + + + + + + | Anion Gap | 19 | 5 - 20 mmol/L | [facility] | | | | | | LABORATORY | | + + + + + + | Glucose | 88 | 65 - 99 mg/dL | [facility] | | | | | | LABORATORY | | + + + + + + | BUN | 58 (H) | 8 - 25 mg/dL | [facility] | | | | | | LABORATORY | | + + + + + + | Creatinine | 10.13 (H) | 0.50 - 1.00 | [facility] | | | | | mg/dL | LABORATORY | | + + + + + + | BUN/Creatin | 6 | | [facility] | | | ine Ratio | | | LABORATORY | | + + + + + + | Calcium | 9.9 | 8.5 - 10.5 | [facility] | | | | | mg/dL | LABORATORY | | + + + + + + | Protein, | 6.6 | 6.3 - 8.2 g/dL | [facility] | | | Total | | | LABORATORY | | + + + + + + | Albumin | 4.2 | 3.6 - 5.0 g/dL | [facility] | | | | | | LABORATORY | | + + + + + + | Globulin | 2.4 | 1.3 - 4.9 g/dL | [facility] | | | | | | LABORATORY | | + + + + + + | A/G Ratio | 1.8 | 1.0 - 2.4 | [facility] | | | | | | LABORATORY | | + + + + + + | BILIRUBIN, | 1.0 | 0.1 - 1.5 mg/dL | [facility] | | | TOTAL | | | LABORATORY | | + + + + + + | ALK PHOS | 135 (H) | 35 - 115 U/L | [facility] | | | | | | LABORATORY | | + + + + + + | AST | 30 | 10 - 45 U/L | [facility] | | | | | | LABORATORY | | + + + + + + | ALT | 37 | 10 - 65 U/L | [facility] | | | | | | LABORATORY | | + + + + + + | Estimated | 5 (L)Comment: GFR <60: | >60 | [facility] | | | GFR | CHRONIC KIDNEY DISEASE, | mL/min/1.73m2 | LABORATORY | | | | IF FOUND OVER A 3 MONTH | | | | | | PERIOD.GFR <15: KIDNEY | | | | | | FAILURE.FOR | | | | | | AMERICANS, MULTIPLY THE | | | | | | CALCULATED GFR BY | | | | | | 1.210.This eGFR is | | | | | | calculated using the | | | | | | MDRD IDMS traceable | | | | | | equation.Testing | | | | | | performed at [facility];[address] | | | | | [facility];[place], [place] | | | | | | [address] | | | | + + + + + + + + | Specimen | + + | Blood | + + + + + + + | Performing | Address | City/State/Zipcode | Phone Number | | Organization | | | | + + + + + | [facility] | [address] | [place] [address] | [phone] | + + + + + XR Chest 2 Vws (01/23/2019 11:18 PM PST) + + | Specimen | + + | | + + + + + | Impressions | Performed At | + + + | *Cardiomegaly with pulmonary edema. *Probable large right pleural | [facility] | | effusion with atelectasis and/or consolidation of the underlying | | | lung. Signed by: Marinelli, M.D., Pushpender Sign Date/Time: | | | 01/23/2019 11:26 PM | | + + + + + + | Narrative | Performed At | + + + | CHEST TWO VIEWS CLINICAL INFORMATION: Shortness of breath. | [facility] | | COMPARISON: XR CHEST PA AND LATERAL (01/09/2019); CT CHEST WO | | | CONTRAST (01/07/2019); XR CHEST AP PORTABLE (01/07/2019); CHEST TWO | | | VIEWS [id number] (01/06/2019); XR CHEST AP PORTABLE (12/13/2018); | | | FINDINGS: Cardiomegaly. Pulmonary venous congestion. Diffuse | | | interstitial prominence in both lungs. Right parahilar opacity. | | | Dense right basilar opacity with obscuration of right dome of | | | diaphragm and right costophrenic sulcus. No left pleural effusion. | | | No pneumothorax. No acute osseous abnormality. | | + + + + + | Procedure Note | + + | Matt, Rad Results In - 01/23/2019 11:30 PM PST | | CHEST TWO VIEWS | | | | CLINICAL INFORMATION: | | Shortness of breath. | | | | COMPARISON: | | XR CHEST PA AND LATERAL (01/09/2019); CT CHEST WO CONTRAST (01/07/2019); | | XR CHEST AP PORTABLE (01/07/2019); CHEST TWO VIEWS [id number] (01/06/2019); XR | | CHEST AP PORTABLE (12/13/2018); | | | | FINDINGS: | | Cardiomegaly. Pulmonary venous congestion. Diffuse interstitial | | prominence in both lungs. Right parahilar opacity. Dense right | | basilar opacity with obscuration of right dome of diaphragm and right | | costophrenic sulcus. No left pleural effusion. No pneumothorax. No | | acute osseous abnormality. | | | | IMPRESSION: | | *Cardiomegaly with pulmonary edema. | | *Probable large right pleural effusion with atelectasis and/or | | consolidation of the underlying lung. | | | | | | | | | | Signed by: Eliza Marinelli, Yani | | Sign Date/Time: 01/23/2019 11:26 PM | + + + +---------+ + + | Performing | Address | City/State/Zipcode | Phone Number | | Organization | | | | + +---------+ + + | [facility] | | | | + +---------+ + + ECG 12 lead (01/23/2019 10:58 PM PST)Only the most recent of 5 results within the time jorge l od is included. + + + + + + | Component | Value | Ref Range | Performed | Pathologist | | | | | At | Signature | + + + + + + | VENTRICULAR | 122 | BPM | [facility] | | | RATE EKG | | | | | + + + + + + | ATRIAL RATE | 122 | BPM | [facility] | | + + + + + + | P-R | 162 | ms | [facility] | | | INTERVAL | | | | | + + + + + + | QRS | 86 | ms | [facility] | | | DURATION | | | | | + + + + + + | Q-T | 314 | ms | [facility] | | | INTERVAL | | | | | + + + + + + | Q-T | 447 | ms | [facility] | | | INTERVAL | | | | | | (CORRECTED) | | | | | + + + + + + | P WAVE AXIS | 47 | degrees | [facility] | | + + + + + + | QRS AXIS | -48 | degrees | [facility] | | + + + + + + | T AXIS | 82 | degrees | [facility] | | + + + + + + | INTERPRETAT | Sinus tachycardiaLeft | | [facility] | | | ION TEXT | axis | | | | | | deviationNonspecific ST | | | | | | abnormalityAbnormal | | | | | | ECGWhen compared with | | | | | | ECG of 09-JAN-2019 | | | | | | 14:34,T wave inversion | | | | | | no longer evident in | | | | | | Lateral leadsThis ECG | | | | | | contains Unconfirmed | | | | | | Interpretation | | | | | | Statements. See ED | | | | | | Record for Physician | | | | | | Interpretation. | | | | | | Confirmed by MUSE READ | | | | | | ONLY, -COMPUTER ([id number]), | | | | | | slot editor Daniela Luciano | | | | | | ([id number]) on 01/24/2019 | | | | | | 5:16:19 AM | | | | + + + + + + + + | Specimen | + + | | + + + + + | Narrative | Performed At | + + + | | | + + + + +---------+ + + | Performing | Address | City/State/Zipcode | Phone Number | | Organization | | | | + +---------+ + + | [facility] | | | | + +---------+ + + Thoracentesis (01/23/2019 10:51 PM PST) + + + | Narrative | Performed At | + + + | Vivek Teran MD 01/24/2019 6:26 PM Thoracentesis | | | Date/Time: 01/24/2019 6:14 PM Performed by: Vivek Teran MD | | | Authorized by: Sotero Reinoso MD Consent: Verbal consent obtained. | | | Written consent obtained. Risks and benefits: risks, benefits and | | | alternatives were discussed Consent given by: patient Patient | | | understanding: patient states understanding of the procedure being | | | performed Patient consent: the patient's understanding of the | | | procedure matches consent given Procedure consent: procedure | | | consent matches procedure scheduled Relevant documents: relevant | | | documents present and verified Test results: test results available | | | and properly labeled Site marked: the operative site was marked | | | Imaging studies: imaging studies available Patient identity | | | confirmed: verbally with patient and arm band Time out: Immediately | | | prior to procedure a "time out" was called to verify the correct | | | patient, procedure, equipment, systems support officer and site/side marked as | | | required. Procedure purpose: therapeutic Indications: pleural | | | effusion Preparation: Patient was prepped and draped in the usual | | | sterile fashion. Local anesthesia used: yes Anesthesia: local | | | infiltration Anesthesia: Local anesthesia used: yes Local | | | Anesthetic: lidocaine 1% without epinephrine Anesthetic total: 10 mL | | | Sedation: Patient sedated: no Preparation: skin prepped with | | | Betadine Patient position: sitting Ultrasound guidance: yes | | | Location: right posterior Intercostal space: 6th Puncture method: | | | [id number]-acozdn catheter Number of attempts: 1 Drainage amount: 1500 | | | ml Drainage characteristics: clear Patient tolerance: Patient | | | tolerated the procedure well with no immediate complications Chest | | | x-ray performed: yes Chest x-ray interpreted by radiologist. Chest | | | x-ray findings: pleural effusion (improved) | | + + + POC Glucose (01/10/2019 11:54 AM [facility])Only the most recent of 18 results within the time per iod is included. + + + + + + | Component | Value | Ref Range | Performed | Pathologist | | | | | At | Signature | + + + + + + | Glucose, | 124 (H)Comment: Testing | 65 - 99 mg/dL | [facility] | | | POC | performed at [facility];[address] | | LABORATORY | | | | [address];[place] | | | | | | [address] | | | | + + + + + + + + | Specimen | + + | | + + + + + + + | Performing | Address | City/State/Zipcode | Phone Number | | Organization | | | | + + + + + | [facility] | [address] | [place] [address] | [phone] | + + + + + XR Chest PA and Lateral (01/09/2019 4:32 PM PST) + + | Specimen | + + | | + + + + + | Impressions | Performed At | + + + | Stable right sided opacity consistent with a large layering pleural | [facility] | | effusion and compressive atelectasis. Signed by: Pedro | | Max Jasso M.D. Date/Time: 01/09/2019 5:06 PM | | + + + + + + | Narrative | Performed At | + + + | CHEST PA AND LATERAL CLINICAL INFORMATION: Shortness of | [facility] | | breath. COMPARISON: CT CHEST WO CONTRAST (01/07/2019); XR CHEST AP | | | PORTABLE (01/07/2019); CHEST TWO VIEWS [id number] (01/06/2019); XR CHEST AP | | | PORTABLE (12/13/2018); FINDINGS: Dense opacity throughout the | | | right hemithorax consistent with a pleural effusion. There is | | | associated compressive atelectasis of the right lower and middle | | | lobes and portions of the right upper lobe. Left lung remains | | | clear. No pneumothorax. Heart size normal. Pulmonary | | | vasculature normal in caliber. No acute bony abnormality. | | + + + + + | Procedure Note | + + | Matt, Rad Results In - 01/09/2019 5:10 PM PST | | CHEST PA AND LATERAL | | | | CLINICAL INFORMATION: | | Shortness of breath. | | | | COMPARISON: | | CT CHEST WO CONTRAST (01/07/2019); XR CHEST AP PORTABLE (01/07/2019); | | CHEST TWO VIEWS [id number] (01/06/2019); XR CHEST AP PORTABLE (12/13/2018); | | | | FINDINGS: | | Dense opacity throughout the right hemithorax consistent with a pleural | | effusion. There is associated compressive atelectasis of the right | | lower and middle lobes and portions of the right upper lobe. Left lung | | remains clear. No pneumothorax. Heart size normal. Pulmonary | | vasculature normal in caliber. No acute bony abnormality. | | | | IMPRESSION: | | Stable right sided opacity consistent with a large layering pleural | | effusion and compressive atelectasis. | | | | | | | | Signed by: Eliza Vasquez Corey | | Sign Date/Time: 01/09/2019 5:06 PM | + + + +---------+ + + | Performing | Address | City/[facility] | Phone Number | | Organization | | | | + +---------+ + + | [facility] | | | | + +---------+ + + CT Chest wo Contrast (01/07/2019 3:52 PM PST) + + | Specimen | + + | | + + + + + | Impressions | Performed At | + + + | 1. Large right pleural effusion, without loculation 2. Small to | [facility] | | moderate volume ascites. Signed by: Eliza Galvan, Florian | | | Sign Date/Time: 01/07/2019 4:27 PM | | + + + + + + | Narrative | Performed At | + + + | CT CHEST WITHOUT CONTRAST CLINICAL INFORMATION: Pleural | [facility] | | effusion COMPARISON: XR CHEST AP PORTABLE (01/07/2019); XR CHEST | | | AP PORTABLE (12/13/2018); CT CHEST ABDOMEN PELVIS WO CONTRAST | | | (12/11/2018); PROCEDURE: Axial images through the chest. | | | Multiplanar reconstructions. At least one of the following CT dose | | | optimization techniques were used: Automated exposure control; | | | Adjustment of mA and/or kV according to patient size; Use of | | | iterative reconstruction technique. FINDINGS: Lungs, Pleura and | | | Airways: There is a large right pleural effusion, marginally smaller | | | in size when compared to the 12/11/2018 study. There is patchy | | | ground-glass in the left lung, suggesting mild pulmonary edema. | | | There is no left-sided effusion. There is mild atelectasis at the | | | left lung base. There is no pneumothorax. Mediastinum: No | | | significant pericardial, great vessel or esophageal abnormality. No | | | mediastinal mass. Lymph Nodes: No adenopathy. Upper Abdomen: The | | | [place] kidneys are atrophic. There is a small to moderate volume of | | | ascites. BODY WALL Soft Tissues: The soft tissues of the chest | | | wall are unremarkable. Bones: No acute fracture or vertebral end | | | plate destruction. No lytic or blastic lesion. | | + + + + + | Procedure Note | + + | Matt, Rad Results In - 01/07/2019 4:30 PM PST | | CT CHEST WITHOUT CONTRAST | | | | CLINICAL INFORMATION: | | Pleural effusion | | | | COMPARISON: | | XR CHEST AP PORTABLE (01/07/2019); XR CHEST AP PORTABLE (12/13/2018); CT | | CHEST ABDOMEN PELVIS WO CONTRAST (12/11/2018); | | | | PROCEDURE: | | Axial images through the chest. Multiplanar reconstructions. | | | | At least one of the following CT dose optimization techniques were | | used: Automated exposure control; Adjustment of mA and/or kV according | | to patient size; Use of iterative reconstruction technique. | | | | FINDINGS: | | Lungs, Pleura and Airways: There is a large right pleural effusion, | | marginally smaller in size when compared to the 12/11/2018 study. There | | is patchy ground-glass in the left lung, suggesting mild pulmonary | | edema. There is no left-sided effusion. There is mild atelectasis at | | the left lung base. There is no pneumothorax. | | Mediastinum: No significant pericardial, great vessel or esophageal | | abnormality. No mediastinal mass. | | Lymph Nodes: No adenopathy. | | Upper Abdomen: The [place] kidneys are atrophic. There is a small to | | moderate volume of ascites. | | | | BODY WALL | | Soft Tissues: The soft tissues of the chest wall are unremarkable. | | Bones: No acute fracture or vertebral end plate destruction. No lytic | | or blastic lesion. | | | | IMPRESSION: | | 1. Large right pleural effusion, without loculation | | 2. Small to moderate volume ascites. | | | | | | | | Signed by: Eliza Galvan David | | Sign Date/Time: 01/07/2019 4:27 PM | + + + +---------+ + + | Performing | Address | City/State/Zipcode | Phone Number | | Organization | | | | + +---------+ + + | [facility] | | | | + +---------+ + + Hepatitis B Surface Ag (01/07/2019 8:33 AM PST) + + + + + + | Component | Value | Ref Range | Performed | Pathologist | | | | | At | Signature | + + + + + + | Hepatitis B | NON REACTIVEComment: | NR | [facility] | | | Surface Ag | Testing performed at | | LABORATORY | | | | [place], [address] | | | | | | [place] | | | | | | [address] | | | | + + + + + + + + | Specimen | + + | Blood | + + + + + + + | Performing | Address | City/State/Zipcode | Phone Number | | Organization | | | | + + + + + | [facility] | [address] | [place] [address] | [phone] | + + + + + Thoracentesis (01/07/2019 1:36 AM PST) + + + | Narrative | Performed At | + + + | Florian Nelson MD 01/07/2019 18:36 Thoracentesis Date/Time: | | | 01/07/2019 7:32 Performed by: Florian Nelson MD Authorized by: Piedad | | | Camille Mosquera MD Consent: Verbal consent obtained. Written consent | | | obtained. Consent given by: patient Patient understanding: patient | | | states understanding of the procedure being performed Patient | | | consent: the patient's understanding of the procedure matches | | | consent given Patient identity confirmed: verbally with patient | | | Procedure purpose: therapeutic Indications: pleural effusion | | | Preparation: Patient was prepped and draped in the usual sterile | | | fashion. Local anesthesia used: yes Anesthesia: Local anesthesia | | | used: yes Local Anesthetic: lidocaine 1% without epinephrine | | | Anesthetic total: 10 mL Sedation: Patient sedated: yes Sedation | | | type: anxiolysis Sedatives: diazepam Preparation: skin prepped | | | with ChloraPrep Patient position: sitting Ultrasound guidance: yes | | | Location: right posterior Intercostal space: 6th Puncture method: | | | [id number] catheter Needle size: 18 Catheter size: 18 gauge | | | Number of attempts: 1 Drainage amount: 1500 ml Drainage | | | characteristics: clear Patient tolerance: Patient tolerated the | | | procedure well with no immediate complications Chest x-ray | | | performed: yes Chest x-ray interpreted by me. Chest x-ray findings: | | | pleural effusion | | + + + HEMODIALYSIS (12/14/2018 9:52 AM PDT) + + + | Narrative | Performed At | + + + | Billie Gupta MD 12/14/2018 9:54 [facility] | | | [facility] Hemo-Dialysis Procedure note Pt is seen on | | | Dialysis. Indication for Dialysis: ESRD for Clearance and UF | | | Review of Systems: On dialysis, the patient denies nausea, vomiting, | | | palpitations, headaches . Wants to go home Laboratory Findings Lab | | | Results Component Value Date BUN 26 (H) 12/14/2018 CREA 7.0 | | | (H) 12/14/2018 EGFR 7 (L) 12/14/2018 NA 137 12/14/2018 K 4.7 | | | 12/14/2018 CL 99 12/14/2018 CO2 27 12/14/2018 CALCIUM 9.4 | | | 12/14/2018 PHOS 8.9 (H) 12/10/2018 MG 2.2 12/10/2018 ALBUMIN | | | 4.3 12/10/2018 WBC 7.00 12/14/2018 HGB 10.7 (L) 12/14/2018 | | | PLT 200 12/14/2018 Lab Results Component Value Date COLORUA | | | YELLOW 11/07/2018 Component Value Date/Time CREA 7.0 (H) | | | 12/14/2018 0610 CREA 4.9 (H) 12/13/2018 0527 CREA 7.4 (H) | | | 12/12/2018 0502 CREA 6.16 (H) 12/11/2018 1946 CREA 13.63 (H) | | | 12/11/2018 0615 CREA 13.44 (H) 12/10/2018 2302 CREA 7.5 (H) | | | 11/09/2018 0414 CREA 5.6 (H) 11/08/2018 0447 CREA 7.4 (H) | | | 11/07/2018 0403 CREA 7.3 (H) 10/22/2018 0533 CREA 5.0 (H) | | | 10/21/2018 0548 CREA 5.83 (H) 10/20/2018 0641 LABCREA 7.2 (H) | | | 10/19/2018 0620 LABCREA 9.3 (H) 10/18/2018 0544 LABCREA 14.52 | | | (H) 10/17/2018 0349 LABCREA 5.62 (H) 08/22/2018 0702 LABCREA 9.6 | | | (H) 08/21/2018 0502 LABCREA 8.68 (H) 08/20/2018 1743 LABCREA | | | 5.48 (H) 07/24/2018 0604 LABCREA 8.3 (H) 07/23/2018 0532 LABCREA | | | 4.6 (H) 07/21/2018 0600 LABCREA 5.65 (H) 07/20/2018 0625 | | | LABCREA 7.7 (H) 07/19/2018 0610 LABCREA 7.2 (H) 06/01/2018 0443 | | | Physical Exam Blood pressure 117/61, pulse 75, | | | temperature 36.5 C (97.7 F), temperature source Axillary, resp. | | | rate 18, height 1.702 m (5' 7"), weight 63.5 kg (139 lb 15.9 oz), | | | SpO2 98 %, not currently . QB 450 AP | | | -200 [address] [place] 170 Constitutional: pt appears without distress. on | | | nasal oxygen Cardiovascular: Normal rate. Exam reveals no gallop | | | and no friction rub. No murmur heard. Pulmonary/Chest: Effort | | | normal. No stridor. No respiratory distress. Pt has + wheezes, | | | coarse BS. Musculoskeletal: pt exhibits no edema in lower | | | extremities . Access; pt has left AVF. It has good thrill and | | | bruit A/P ESRD requiring HD: Hemodynamically stable on HD; | | | continue per submitted dialysis orders. No dialysis-related | | | complications identified during dialysis treatment today. | | | Modifications to orders: none Billie Gupta MD 12/14/2018 | | | | | + + + US Guided Thoracentesis wo Chest Tube (12/12/2018 1:53 PM PDT) + + | Specimen | + + | | + + + + + | Impressions | Performed At | + + + | IMPRESSION: Documentation of intra procedural ultrasound guidance. | [facility] | | See procedure note for details. Signed by: Onesimo | | | Fely Kay Date/Time: 12/12/2018 5:27 PM | | + + + + + + | Narrative | Performed At | + + + | INTRAPROCEDURAL ULTRASOUND GUIDANCE CLINICAL INFORMATION: | [facility] | | Sonography was utilized for purposes of procedural guidance. This is a | | | non-diagnostic study done for hospital documentation purposes. | | | COMPARISON: CT CHEST ABDOMEN PELVIS WO CONTRAST (12/11/2018); XR CHEST | | | AP PORTABLE (12/10/2018); XR CHEST AP PORTABLE (11/07/2018); | | | PROCEDURE: Real time ultrasound for procedural or intraoperative | | | guidance. FINDINGS: Limited images of the right chest for | | | purposes of procedural ultrasound guidance. A right pleural effusion | | | was identified prior to right thoracentesis performed by Cheryl | | | LUX Connell. | | + + + + + | Procedure Note | + + | Matt, Rad Results In - 12/12/2018 5:31 PM PDT | | INTRAPROCEDURAL ULTRASOUND GUIDANCE | | | | CLINICAL INFORMATION: | | Sonography was utilized for purposes of procedural guidance. This is a | | non-diagnostic study done for hospital documentation purposes. | | | | COMPARISON: | | CT CHEST ABDOMEN PELVIS WO CONTRAST (12/11/2018); XR CHEST AP PORTABLE | | (12/10/2018); XR CHEST AP PORTABLE (11/07/2018); | | | | PROCEDURE: | | Real time ultrasound for procedural or intraoperative guidance. | | | | FINDINGS: | | Limited images of the right chest for purposes of procedural ultrasound | | guidance. A right pleural effusion was identified prior to right | | thoracentesis performed by LUX Andre. | | | | IMPRESSION: | | IMPRESSION: | | Documentation of intra procedural ultrasound guidance. See procedure | | note for details. | | | | | | | | | | Signed by: Eliza Echols Julie | | Sign Date/Time: 12/12/2018 5:27 PM | + + + +---------+ + + | Performing | Address | City/State[facility] | Phone Number | | Organization | | | | + +---------+ + + | [facility] | | | | + +---------+ + + Echo Limited (12/12/2018 8:46 AM PDT) + +--------+ + + + | Component | Value | Ref Range | Performed | Pathologist | | | | | At | Signature | + +--------+ + + + | LVEF-TTE | 40 | % | [facility] | | | TRANSTHORAC | | | | | | IC ECHO | | | | | + +--------+ + + + | BASELINE | 138/79 | mmHg | [facility] | | | BLOOD | | | | | | PRESSURE | | | | | + +--------+ + + + | Patient | 155lbs | | [facility] | | | Weight | | | | | | (lbs) | | | | | + +--------+ + + + | Patient | 67in | | [facility] | | | Height | | | | | + +--------+ + + + | Inferior | 1.76 | cm | [facility] | | | Vena Cava | | | | | | Diameter at | | | | | | Expiration | | | | | + +--------+ + + + | RA PRESSURE | 8 | mmHg | [facility] | | + +--------+ + + + | TR Peak | 63 | mmHg | [facility] | | | Gradient | | | | | + +--------+ + + + | TR Velocity | 396.13 | cm | [facility] | | + +--------+ + + + | LV | 52 | % | [facility] | | | Moody's | | | | | | Biplane EF | | | | | + +--------+ + + + | LV ED | 151.83 | ml | [facility] | | | Volume | | | | | | (Moody's) | | | | | + +--------+ + + + | LV ED | 84 | ml/m2 | [facility] | | | Volume | | | | | | Index | | | | | + +--------+ + + + | LV ES | 72.3 | ml | [facility] | | | Volume | | | | | + +--------+ + + + | RVSP | 71 | mmHg | [facility] | | | Estimated | | | | | + +--------+ + + + | LV ES | 40 | ml/m2 | [facility] | | | Volume | | | | | | Index | | | | | + +--------+ + + + | Heart Rate | 80 | | [facility] | | + +--------+ + + + + + | Specimen | + + | | + + + + + | Narrative | Performed At | + + + | | [facility] | | Moderately reduced left ventricular systolic function. | | | The left ventricular ejection fraction is 40%. There are no obvious | | | vegetations. Can not rule out endocarditis on this study, consider | | | NOA if clinically indicated. | | | Severe tricuspid regurgitation. | | | There is severe pulmonary hypertension. | | | Estimated right ventricular systolic pressure (RVSP) is 71 mmHg. | | + + + + +---------+ + + | Performing | Address | City/State/Zipcode | Phone Number | | Organization | | | | + +---------+ + + | [facility] | | | | + +---------+ + + Culture, Blood (12/12/2018 5:02 AM PDT)Only the most recent of 3 results within the time griffin escobar is included. + + + + + + | Component | Value | Ref Range | Performed | Pathologist | | | | | At | Signature | + + + + + + | Special | RWRIST | | [facility] | | | Requests | | | LABORATORY | | + + + + + + | Special | Testing performed at | | [facility] | | | Requests | [facility];[address] [place] [address] | | LABORATORY | | | | Blvd;[place] [address] | | | | + + + + + + | RESULT | NO GROWTH 6 DAYS | | [facility] | | | | | | LABORATORY | | + + + + + + | RESULT | Testing performed at | | [facility] | | | | [facility], [address] | | LABORATORY | | | | [place], [place] | | | | | | [id number]: Testing | | | | | | performed at [facility], [address] | | | | | [place], [place] | | | | | | [address] | | | | + + + + + + + + | Specimen | + + | Blood - Peripheral | | blood specimen | | (specimen) | + + + + + + + | Performing | Address | City/State/Zipcode | Phone Number | | Organization | | | | + + + + + | [facility] | [address] | [place] [address] | [phone] | + + + + + C-Reactive Protein (12/12/2018 5:02 AM PDT) + + + + + + | Component | Value | Ref Range | Performed | Pathologist | | | | | At | Signature | + + + + + + | CRP | 8.6 (H)Comment: Testing | <0.5 mg/dL | [facility] | | | | performed at [facility], [address] | | LABORATORY | | | | [place], | | | | | | [place] [address] | | | | + + + + + + + + | Specimen | + + | Blood | + + + + + + + | Performing | Address | City/State/Zipcode | Phone Number | | Organization | | | | + + + + + | [facility] | [address] | [place] [address] | [phone] | + + + + + Influenza A and B RNA, NAAT (12/11/2018 3:56 PM PDT) + + + + + + | Component | Value | Ref Range | Performed | Pathologist | | | | | At | Signature | + + + + + + | Influenza A | NEGATIVE | NEG | [facility] | | | | | | LABORATORY | | + + + + + + | Influenza B | NEGATIVEComment: Testing | NEG | [facility] | | | | performed by Molecular | | LABORATORY | | | | MethodologyTesting | | | | | | performed at [facility];[address];[place], [place] | | | | | | [address] | | | | + + + + + + + + | Specimen | + + | | + + + + + + + | Performing | Address | City/State/Zipcode | Phone Number | | Organization | | | | + + + + + | [facility] | [address] | [place] [address] | [phone] | + + + + + FLU SWAB COLLECTION (12/11/2018 3:46 PM PDT) + + + + + + | Component | Value | Ref Range | Performed | Pathologist | | | | | At | Signature | + + + + + + | Collection | SPECIMEN RECEIVED IN | | [facility] | | | | LABComment: Testing | | LABORATORY | | | | performed at [facility] | | | | | | [address];[place], [place] | | | | | | [address] | | | | + + + + + + + + | Specimen | + + | Tissue - Entire | | nasopharynx (body | | structure) | + + + + + + + | Performing | Address | City/State/Zipcode | Phone Number | | Organization | | | | + + + + + | [facility] | [address] | [place] [address] | [phone] | + + + + + PTT (12/11/2018 8:06 AM PDT) + + + + + + | Component | Value | Ref Range | Performed | Pathologist | | | | | At | Signature | + + + + + + | PTT | 32Comment: Testing | 23 - 32 seconds | [facility] | | | | performed at [facility];[address] | | LABORAT[address] | | | [address];[place], [place] | | | | | | [address] | | | | + + + + + + + + | Specimen | + + | Blood | + + + + + + + | Performing | Address | City/State/Zipcode | Phone Number | | Organization | | | | + + + + + | [facility] | [address] | [place] [address] | [phone] | + + + + + CT Chest Abdomen Pelvis wo Contrast (12/11/2018 2:12 AM PDT) + + | Specimen | + + | | + + + + + | Impressions | Performed At | + + + | IMPRESSION: 1. Large right pleural effusion with compressive | [facility] | | atelectasis of the adjacent lung. 2. Mohs act attenuation in the | | | left lung as seen on multiple prior studies which may be related to | | | underlying air trapping, emphysema or edema. 2. Mild splenomegaly. | | | 3. Mild ascites. 4. Atrophic kidneys. 5. Tiny punctate | | | nonobstructing left renal calculus. 6. Mild diffuse body wall | | | edema. Signed by: Eliza Glass, Mere Sign Date/Time: | | | 12/11/2018 2:45 AM | | + + + + + + | Narrative | Performed At | + + + | CT CHEST ABDOMEN AND PELVIS WITHOUT CONTRAST CLINICAL | [facility] | | INFORMATION: Sepsis. Chest pain, shortness of breath, and cough. | | | COMPARISON: XR CHEST AP PORTABLE (12/10/2018); CT CHEST WO CONTRAST | | | (07/19/2018); CT CHEST WO CONTRAST (05/26/2018); PROCEDURE: Axial | | | images through the chest, abdomen and pelvis. Multiplanar | | | reconstructions. At least one of the following CT dose | | | optimization techniques were used: Automated exposure control; | | | Adjustment of mA and/or kV according to patient size; Use of | | | iterative reconstruction technique. FINDINGS: CHEST Lungs, | | | Pleura and Airways: There is a large right-sided pleural effusion | | | with compressive atelectasis of the adjacent lung. Again noted is | | | mosaic attenuation of the left lung as seen on multiple prior | | | studies, which may be due to air trapping, underlying emphysema or | | | edema. Central airways are patent. Mediastinum: No significant | | | pericardial, great vessel or esophageal abnormality. No mediastinal | | | mass. Lymph Nodes: No adenopathy. ABDOMEN Liver and Biliary: | | | Solid organ evaluation suboptimal without contrast. No visible | | | abnormality in the liver or gallbladder. Pancreas, Spleen and | | | Adrenals: There is mild splenomegaly measuring up to 15 cm. No | | | significant adrenal or pancreatic abnormality. Kidneys: Bilateral | | | atrophic kidneys. No hydronephrosis. Tiny punctate lower pole | | | left renal calculus. ABDOMEN AND PELVIS Bowel: No small bowel or | | | colonic dilation or adjacent inflammation. No appendiceal dilation or | | | inflammation. Vessels: Abdominal aorta normal in caliber. No | | | aneurysm. Veins not assessed without contrast. Lymph Nodes: No | | | adenopathy. Peritoneum and Retroperitoneum: Mild pelvic and | | | perihepatic ascites. No free air. PELVIS Genitourinary: | | | Distal ureters and bladder appear normal. No pelvic masses. | | | BODY WALL Soft Tissues: Mild diffuse body wall edema. Bones: No | | | acute fracture or vertebral end plate destruction. No lytic or | | | blastic lesion.Diffuse mild increased density of the visualized | | | osseous structures may be related to underlying renal osteodystrophy. | | | | | + + + + + | Procedure Note | + + | Matt, Rad Results In - 12/11/2018 2:49 AM PDT | | CT CHEST ABDOMEN AND PELVIS WITHOUT CONTRAST | | | | CLINICAL INFORMATION: | | Sepsis. Chest pain, shortness of breath, and cough. | | | | COMPARISON: | | XR CHEST AP PORTABLE (12/10/2018); CT CHEST WO CONTRAST (07/19/2018); CT | | CHEST WO CONTRAST (05/26/2018); | | | | PROCEDURE: | | Axial images through the chest, abdomen and pelvis. Multiplanar | | reconstructions. | | | | At least one of the following CT dose optimization techniques were | | used: Automated exposure control; Adjustment of mA and/or kV according | | to patient size; Use of iterative reconstruction technique. | | | | FINDINGS: | | CHEST | | Lungs, Pleura and Airways: There is a large right-sided pleural | | effusion with compressive atelectasis of the adjacent lung. Again | | noted is mosaic attenuation of the left lung as seen on multiple prior | | studies, which may be due to air trapping, underlying emphysema or | | edema. Central airways are patent. | | Mediastinum: No significant pericardial, great vessel or esophageal | | abnormality. No mediastinal mass. | | Lymph Nodes: No adenopathy. | | | | ABDOMEN | | Liver and Biliary: Solid organ evaluation suboptimal without contrast. | | No visible abnormality in the liver or gallbladder. | | Pancreas, Spleen and Adrenals: There is mild splenomegaly measuring up | | to 15 cm. No significant adrenal or pancreatic abnormality. | | Kidneys: Bilateral atrophic kidneys. No hydronephrosis. Tiny punctate | | lower pole left renal calculus. | | | | ABDOMEN AND PELVIS | | Bowel: No small bowel or colonic dilation or adjacent inflammation. No | | appendiceal dilation or inflammation. | | Vessels: Abdominal aorta normal in caliber. No aneurysm. Veins not | | assessed without contrast. | | Lymph Nodes: No adenopathy. | | Peritoneum and Retroperitoneum: Mild pelvic and perihepatic ascites. | | No free air. | | | | | | PELVIS | | Genitourinary: Distal ureters and bladder appear normal. No pelvic | | masses. | | | | BODY WALL | | Soft Tissues: Mild diffuse body wall edema. | | Bones: No acute fracture or vertebral end plate destruction. No lytic | | or blastic lesion.Diffuse mild increased density of the visualized | | osseous structures may be related to underlying renal osteodystrophy. | | | | IMPRESSION: | | IMPRESSION: | | 1. Large right pleural effusion with compressive atelectasis of the | | adjacent lung. | | 2. Mohs act attenuation in the left lung as seen on multiple prior | | studies which may be related to underlying air trapping, emphysema or | | edema. | | 2. Mild splenomegaly. | | 3. Mild ascites. | | 4. Atrophic kidneys. | | 5. Tiny punctate nonobstructing left renal calculus. | | 6. Mild diffuse body wall edema. | | | | | | | | Signed by: Eliza Glass, Mere | | Sign Date/Time: 12/11/2018 2:45 AM | + + + +---------+ + + | Performing | Address | City/State/Zipcode | Phone Number | | Organization | | | | + +---------+ + + | [facility] | | | | + +---------+ + + POC CG 4, ISTAT Arterial (12/11/2018 1:33 AM PDT) + + + + + + | Component | Value | Ref Range | Performed | Pathologist | | | | | At | Signature | + + + + + + | pH, | 7.229 (LL) | 7.350 - 7.450 | [facility] | | | Arterial, | | | LABORATORY | | | POC | | | | | + + + + + + | pCO2, | 50 (H) | 35 - 45 mmHg | [facility] | | | Arterial | | | LABORATORY | | + + + + + + | pO2, | 91 | 80 - 105 mmHg | [facility] | | | Arterial | | | LABORATORY | | + + + + + + | Lactate, | 0.98 | 0.36 - 1.25 | [facility] | | | Arterial, | | mmol/L | LABORATORY | | | POC | | | | | + + + + + + | HCO3, | 21 (L) | 22 - 26 mmol/L | [facility] | | | Arterial | | | LABORATORY | | + + + + + + | TCO2, | 22 (L) | 23 - 27 mEq/L | [facility] | | | Arterial, | | | LABORATORY | | | POC | | | | | + + + + + + | POC Base | 7 (H) | 0.0 - 2.0 | [facility] | | | Deficit | | mmol/L | LABORATORY | | | mmol/L | | | | | + + + + + + | SO2, | 95 | 95 - 98 % | [facility] | | | Arterial, | | | LABORATORY | | | POC | | | | | + + + + + + | FiO2, POC | 40 | % | [facility] | | | | | | LABORATORY | | + + + + + + | Comment, | Modified Doyle Test | | [facility] | | | POC | passedComment: Testing | | LABORATORY | | | | performed at [facility];[address] | | [address] | [address];[place] | | | | | | [address] | | | | + + + + + + + + | Specimen | + + | | + + + + + + + | Performing | Address | City/State/Zipcode | Phone Number | | Organization | | | | + + + + + | [facility] | [address] | [place] [address] | [phone] | + + + + + Lactic Acid (12/11/2018 1:04 AM PDT)Only the most recent of 2 results within the time jorge l od is included. + + + + + + | Component | Value | Ref Range | Performed | Pathologist | | | | | At | Signature | + + + + + + | Lactate, | 1.2Comment: Testing | 0.4 - 2.0 | [facility] | | | Serum | performed at [facility];888 | mmol/L | LABORATORY | | | | [address];[place], [place] | | | | | | [address] | | | | + + + + + + + + | Specimen | + + | Blood | + + + + + + + | Performing | Address | City/State/Zipcode | Phone Number | | Organization | | | | + + + + + | [facility] | [address] | [place] [address] | [phone] | + + + + + Protime INR (12/10/2018 11:02 PM PDT) + + + + + + | Component | Value | Ref Range | Performed | Pathologist | | | | | At | Signature | + + + + + + | INR | 1.3Comment: REFERENCE | | [facility] | | | | RANGE:0.9 - 1.2 | | LABORATORY | | | | NON-ANTICOAGULATED2.0 | | | | | | - 3.0 ALL OTHER | | | | | | THERAPEUTIC | | | | | | INDICATIONS2.5 - 3.5 | | | | | | MECHANICAL HEART VALVES, | | | | | | RECURRENT OR SYSTEMIC | | | | | | EMBOLISMTesting | | | | | | performed at [facility];[address] | | | | | | [address];[place], [place] | | | | | | [address] | | | | + + + + + + + + | Specimen | + + | Blood | + + + + + + + | Performing | Address | City/State/Zipcode | Phone Number | | Organization | | | | + + + + + | [facility] | [address] | [place] [address] | [phone] | + + + + + from Last 3 Months Insurance + +--------+ +--------+ +---------+--------+ | Payer | Benefi | Subscriber | Effect | Phone | Address | Type | | | t Plan | ID | eboni | | | | | | / | | Dates | | | | | | Group | | | | | | + +--------+ +--------+ +---------+--------+ | MEDICARE | MEDICA | [id number] | 05/05/19 | [phone] | | Medica | | | RE | | 13-Pre | 5 | | re | | | PART A | | sent | | | | | | AND B | | | | | | + +--------+ +--------+ +---------+--------+ | MEDICARE | MEDICA | [id number] | 05/05/19 | [phone] | | Medica | | | RE | | 13-Pre | 5 | | re | | | PART A | | sent | | | | | | AND B | | | | | | + +--------+ +--------+ +---------+--------+ | [employer] | MODA | [id number] | | [phone] | | Medica | | MEDICAID HMO | HEALTH | | 019-Pr | 1 | | id | | | MDCD | | esent | | | | | | [place]MO [place] | | | | | | + +--------+ +--------+ +---------+--------+ | [employer] | MODA | [id number] | | [phone] | | Medica | | MEDICAID HMO | HEALTH | | 019-Pr | 1 | | id | | | MDCD | | esent | | | | | | [place]MO [place] | | | | | | + +--------+ +--------+ +---------+--------+ + +--------+ +--------+ + + | Guarantor Name | Accoun | Relation to | Date | Phone | Billing Address | | | t Type | Patient | of | | | | | | | | | | + +--------+ +--------+ + + | Dara Weldon | Person | Self | [birth year] | [address] | | | al/Fam | | 1994 | [phone] | [address] [place], [place] | | | [place] | | | 2 (Home) | [address] | + +--------+ +--------+ + + | Dara Weldon | Person | Self | [birth year] | | [address] | | | al/Fam | | 1994 | [phone] | [address] [place], [place] | | | [place] | | | 2 (Home) | [address] | + +--------+ +--------+ + + | Cory Weldon | Person | Father | [birth year] | | [address] | | | al/Fam | | 1972 | [phone] | [place] [address] | | | [place] | | | 9 (Home) | | + +--------+ +--------+ + + Advance Directives + + + + + | Type | Date Recorded | Patient | Explanation | | | | Brand Advocate | | + + + + + | Power of | 11/06/2018 7:27 | | | | Telehealth Coordinator | PM | | | + + + + + | Advance | 12/10/2018 11:26 | | | | Directive | PM | | | + + + + + + + + + + | Code Status | Date | Date | Comments | | | Activated | Inactivated | | + + + + + | Full Code | 01/24/2019 | 01/26/2019 | | | | 3:55 AM | 1:47 PM | | + + + + + + + + +---+ | | | | | + + + +---+ | Full Code | 01/07/2019 | 01/10/2019 | | | | 5:36 AM | 7:06 PM | | + + + +---+ + + + +---+ | | | | | + + + +---+ | Full Code | 12/11/2018 | 12/14/2018 | | | | 7:19 AM | 3:39 PM | | + + + +---+ + + + +---+ | | | | | + + + +---+ | Full Code | 11/07/2018 | 11/09/2018 | | | | 7:17 PM | 4:32 PM | | + + + +---+ + + + +---+ | | | | | + + + +---+ | Full Code | 10/19/2018 | 10/22/2018 | | | | 1:41 PM | 7:31 PM | | + + + +---+
--- OUTSIDE RECORDS SUMMARY | ~2019-03-08 | XMS | Encounter Summary ---
Demographics + + + | Address | [address] | | | [place] [address] | + + + | Home Phone | | + + + | Preferred Language | Unknown | + + + | Marital Status | Single | + + + | Roman Catholic Affiliation | Unknown | + + + | Race | Unknown | + + + | Ethnic Group | Unknown | + + + Author + + + | Author | [facility] | | | and [place]ana | + + + | Organization | [facility] | | | and Josephana | [...] Team Providers + +------+ + | Care Motivational Speaker Name | Role | Phone | + +------+ + PCP | Unavailable | + +------+ + Encounter Details +--------+ + + + + | Date | Type | Department | Care Team | Description | +--------+ + + + + | 11/01/ | Orders Only | [facility] | Jorje Camp | ESRD (end stage | | 2015 | | NEPHROLOGY [address] | M, DO [address] | renal disease) ([facility]) | | | | [address] | [place], [address] | (Primary Dx) | | | | [place], [place] | [place], [place] | | | | | [address] | [address] | | | | | [phone] | | | +--------+ + + + [...] [address] | | | | | | [place] [address] | | | | | | [phone] | | | | | | | | +--------+---------+ + + + documented as of this encounter Visit Diagnoses + + | Diagnosis | + + | ESRD (end stage renal disease) (HCC) - Primary End stage renal disease | + + documented in this encounter"
--- OUTSIDE RECORDS SUMMARY | ~2019-03-08 | XMS | Encounter Summary ---
Demographics + + + | Address | [address] | | | [place] [address] | + + + | Home Phone [...] | | | | | [place] [address] | | + + + + + | Thania Mallory | ECON | [address] | | | | | [place] [address] | | + + + + + | Deidra Weldon | ECON | [address] | | | | | [place] | | | | | [address] | | + + + + + Care Team Providers + +------+ + | Care Gis Analyst Developer Name | Role | Phone | + [...] Transplant Services | RN [address] | Update | | | | [address] [facility] | [facility] | | | | | [facility], | [place], [place] | | | | | [place] [address] | [address] | | | | | [phone] | | | +--------+ + + + [...] [facility] | | | | | | [address] | | | | | | [phone] | | | | | | | | +--------+ + + + + documented as of this encounter Visit Diagnoses Not on filedocumented in this encounter"
--- OUTSIDE RECORDS SUMMARY | ~2019-03-08 | XMS | Encounter Summary ---
Demographics + + + | Address | [address] | | | [place] [address] | + + + | Home Phone | | + + + | Preferred Language | Unknown | + + + | Marital Status | Single | + + + | Yarsani Affiliation | Unknown | + + + | Race | Unknown | + + + | Ethnic Group | Unknown | + + + Author + + + | Author | [facility] | | | and [place] | + + + | Organization | [facility] | | | and [place]ana [...] Team Providers + +------+ + | Care Dispensing Optician Apprentice Name | Role | Phone | + +------+ + PCP | Unavailable | + +------+ + Encounter Details +--------+ + + + + | Date | Type | Department | Care Team | Description | +--------+ + + + + | 06/12/ | Hospital | [facility] | Conversion | | | 2015 | Encounter | [facility] | Transaction, | | | | | CLINIC [address] | Provider Unknown | | | | | [place], [place] | [phone] | | | | | [address] | | | | | | [phone] | | | +--------+ + + + [...] DAV[place] | | | | | | [place] [address] | | | | | | [phone] | | | | | | | | +--------+---------+ + + + documented as of this encounter Procedures + +--------+ + + + | Procedure Name | Priori | Date/Time | Associated Diagnosis | Comments | | | ty | | | | + +--------+ + + + | EXTERNAL LAB: CBC | Routin | 06/12/2014 | | Results for this | | | e | 1:18 PM | | procedure are in the | | | | PDT | | results section. | + +--------+ + + + | PTT | Routin | 06/12/2014 | | Results for this | | | e | 1:18 PM | | procedure are in the | | | | PDT | | results section. | + +--------+ + + + | PROTIME INR | Routin | 06/12/2014 | | Results for this | | | e | 1:18 PM | | procedure are in the | | | | PDT | | results section. | + +--------+ + + + | BASIC METABOLIC | Routin | 06/12/2014 | | Results for this | | PANEL | e | 1:18 PM | | procedure are in the | | | | PDT | | results section. | + +--------+ + + + | MRSA NAAT | Timed | 06/12/2014 | | Results for this | | | | 1:17 PM | | procedure are in the | | | | PDT | | results section. | + +--------+ + + + documented in this encounter Results PTT (06/12/2014 1:18 PM PDT) + + + + + + | Component | Value | Ref Range | Performed | Pathologist | | | | | At | Signature | + + + + + + | aPTT, | 28Comment: Testing | 23 - 32 seconds | EXTERNAL | | | Patient | performed at [facility];[address] | | LAB | | | | [address];[place], [place] | | | | | | [address] | | | | + + + + + + + + | Specimen | + + | Blood specimen | | (specimen) | + + + +---------+ + + | Performing | Address | City/State/Zipcode | Phone Number | | Organization | | | | + +---------+ + + | EXTERNAL LAB | | | | + +---------+ + + Protime INR (06/12/2014 1:18 PM PDT) + + + + + [...] | | | | | performed at [facility];[address] | | | | | | [address];[place], [place] | | | | | | [address] | | | | + + + + + + + + | Specimen | + + | Blood specimen | | (specimen) | + + + +---------+ + + | Performing | Address | City/State/Zipcode | Phone Number | | Organization | | | | + +---------+ + + | EXTERNAL LAB | | | | + +---------+ + + External Lab: [facility] (06/12/2014 1:18 PM PDT) + + + + + + | Component | Value | Ref Range | Performed | Pathologist | | | | | At | Signature | + + + + + + | WBC | 8.85Comment: Testing | 3.80 - 11.00 | EXTERNAL | | | | performed at [facility], [address] | K/uL | LAB | | | | [address], | | | | | | [place] [address] | | | | + + + + + + | RED CELL | 3.83Comment: Testing | 3.70 - 5.10 | EXTERNAL | | | COUNT | performed at [facility], [address] | M/uL | LAB | | | | [address], | | | | | | [place] [address] | | | | + + + + + + | Hgb | 13.6Comment: Testing | 11.3 - 15.5 | EXTERNAL | | | | performed at [facility], [address] | g/dL | LAB | | | | [address], | | | | | | [place] [address] | | | | + + + + + + | Hematocrit, | 40.5Comment: Testing | 34.0 - 46.0 % | EXTERNAL | | | POC | performed at [facility], [address] | | LAB | | | | [address], | | | | | | [place] [address] | | | | + + + + + + | MCV | 105.8 (H)Comment: | 80.0 - 100.0 fl | EXTERNAL | | | | Testing performed at | | LAB | | | | [facility], [address] [facility] [address] [facility] | | | | | | [place] | | | | | | [address] | | | | + + + + + + | MCH | 35.6 (H)Comment: Testing | 27.0 - 34.0 pg | EXTERNAL | | | | performed at [facility], [address] | | LAB | | | | [address], | | | | | | [place] [address] | | | | + + + + + + | MCHC | 33.6Comment: Testing | 32.0 - 35.5 | EXTERNAL | | | | performed at [facility], [address] | g/dL | LAB | | | | [address], | | | | | | [place] [address] | | | | + + + + + + | RDW-CV | 50.3Comment: Testing | 37 - 53 fl | EXTERNAL | | | | performed at [facility], [address] | | LAB | | | | [address], | | | | | | [place] [address] | | | | + + + + + + | Platelet | 170Comment: Testing | 150 - 400 K/uL | EXTERNAL | | | Count | performed at [facility], [address] | | LAB | | | Plasma | [address], | | | | | | [place] [address] | | | | + + + + + + | MPV | 9.5Comment: Testing | fl | EXTERNAL | | | | performed at [facility], [address] | | LAB | | | | [address], | | | | | | [place] [address] | | | | + + + + + + | Differentia | AUTOMATEDComment: | | EXTERNAL | | | l Type | Testing performed at | | LAB | | | | [facility], [address] [facility] | | | | | | [place] | | | | | | [address] | | | | + + + + + + | % Segmented | 61.53Comment: Testing | % | EXTERNAL | | | | performed at [facility], [address] | | LAB | | | Neutrophils | [address], | | | | | | [place] [address] | | | | + + + + + + | % | 26.38Comment: Testing | % | EXTERNAL | | | Lymphocytes | performed at [facility], [address] | | LAB | | | | [address], | | | | | | [place] [address] | | | | + + + + + + | % Monocytes | 8.30Comment: Testing | % | EXTERNAL | | | | performed at [facility], [address] | | LAB | | | | [address], | | | | | | [place] [address] | | | | + + + + + + | % | 3.19Comment: Testing | % | EXTERNAL | | | Eosinophils | performed at [facility], [address] | | LAB | | | | [address], | | | | | | [place] [address] | | | | + + + + + + | % Basophils | 0.60Comment: Testing | % | EXTERNAL | | | | performed at [facility], [address] | | LAB | | | | [address], | | | | | | [place] [address] | | | | + + + + + + | Absolute | 5.44Comment: Testing | 1.90 - 7.40 | EXTERNAL | | | Segmented | performed at [facility], [address] | K/uL | LAB | | | Neutrophils | [address], | | | | | | [place] [address] | | | | + + + + + + | Absolute | 2.33Comment: Testing | 1.00 - 3.90 | EXTERNAL | | | Lymphocytes | performed at [facility], [address] | K/uL | LAB | | | | [address], | | | | | | [place] [address] | | | | + + + + + + | Absolute | 0.74Comment: Testing | 0.00 - 0.80 | EXTERNAL | | | Monocytes | performed at [facility], [address] | K/uL | LAB | | | | [address], | | | | | | [place] [address] | | | | + + + + + + | Absolute | 0.28Comment: Testing | 0.00 - 0.50 | EXTERNAL | | | Eosinophils | performed at [facility], [address] | K/uL | LAB | | | | [address], | | | | | | [place] [address] | | | | + + + + + + | Absolute | 0.05Comment: Testing | 0.00 - 0.10 | EXTERNAL | | | Basophils | performed at [facility], [address] | K/uL | LAB | | | | [address], | | | | | | [place] [address] | | | | + + + [...] + +---------+ + + Basic Metabolic Panel (06/12/2014 1:18 PM PDT) + + + + + + | Component | Value | Ref Range | Performed | Pathologist | | | | | At | Signature | + + + + + + | Na | 134 (L)Comment: Testing | 135 - 143 | EXTERNAL | | | | performed at [facility], [address] | mmol/L | LAB | | | | [address], | | | | | | [place] [address] | | | | + + + + + + | K | 3.8Comment: Testing | 3.5 - 4.9 | EXTERNAL | | | | performed at [facility], [address] | mmol/L | LAB | | | | [address], | | | | | | [place] [address] | | | | + + + + + + | Cl | 94 (L)Comment: Testing | 99 - 109 mmol/L | EXTERNAL | | | | performed at [facility], [address] | | LAB | | | | [address], | | | | | | [place] [address] | | | | + + + + + + | CO2 | 31Comment: Testing | 23 - 32 mmol/L | EXTERNAL | | | | performed at [facility], [address] | | LAB | | | | [address], | | | | | | [place] [address] | | | | + + + + + + | Anion Gap | 13Comment: Testing | 5 - 20 mmol/L | EXTERNAL | | | | performed at [facility], [address] | | LAB | | | | [address], | | | | | | [place] [address] | | | | + + + + + + | Glucose, | 95Comment: Testing | 65 - 99 mg/dL | EXTERNAL | | | Fasting | performed at [facility], [address] | | LAB | | | | [address], | | | | | | [place] [address] | | | | + + + + + + | BUN | 40 (H)Comment: Testing | 8 - 25 mg/dL | EXTERNAL | | | | performed at [facility], [address] | | LAB | | | | [address], | | | | | | [place] [address] | | | | + + + + + + | Creatinine | 7.24 (H)Comment: Testing | 0.50 - 1.00 | EXTERNAL | | | | performed at [facility], [address] | mg/dL | LAB | | | | [address], | | | | | | [place] [address] | | | | + + + + + + | BUN/Creatin | 6Comment: Testing | | EXTERNAL | | | ine Ratio | performed at [facility], [address] | | LAB | | | | [address], | | | | | | [place] [address] | | | | + + + + + + | Calcium | 10.2Comment: Testing | 8.5 - 10.5 | EXTERNAL | | | | performed at [facility], [address] | mg/dL | LAB | | | | [facility], | | | | | | [place] [address] | | | | + + + + + + | Estimated | CALCULATION NOT | mL/min/1.73m2 | EXTERNAL | | | GFR | PERFORMED. RESULT NOT | | LAB | | | | VALID IF AGE LT 20 | | | | | | YEARS.Comment: Testing | | | | | | performed at [facility], [address] | | | | | | [facility], | | | | | | [place] [address] | | | | + + + + + + + + | Specimen | + + | Blood specimen | | (specimen) | + + + +---------+ + + | Performing | Address | City/State/Zipcode | Phone Number | | Organization | | | | + +---------+ + + | EXTERNAL LAB | | | | + +---------+ + + MRSA NAAT (06/12/2014 1:17 PM PDT) + + | Specimen | + + | | + + + + + | Narrative | Performed At | + + + | [facility](NOSE) | EXTERNAL LAB | | Testing performed at [address];[place] [address] MRSA PCR | | | NEGATIVE Testing performed at | | | [address];[place] [address] | | + + + + +---------+ + + | Performing | Address | City/State/Zipcode | Phone Number | | Organization | | | | + +---------+ + + | EXTERNAL LAB | | | | + +---------+ + + documented in this encounter Visit Diagnoses Not on filedocumented in this encounter"
--- OUTSIDE RECORDS SUMMARY | ~2019-03-08 | XMS | Encounter Summary ---
Demographics + + + | Address | [address] | | | [place] [address] | + + + | Home Phone [...] | | | | | [place] [address] | | + + + + + | Thania Mallory | ECON | [address] | | | | | [place] [address] | | + + + + + | Deidra Weldon | ECON | [address] | | | | | [place] | | | | | [address] | | + + + + + Care Team Providers + +------+ + | Care Picker Tender Helper Name | Role | Phone | + [...] Nephrology | | Jonathan Gallagher, | [address] | | | | | | [address] | [address] | | | | | | [place] | Mailcode: | | | | | | Hospital | [address] | | | | | | [address] | [place] | | | | | | [address] | [place], [place] | | | | | | [place] | [address] | | | | | | [place] | Phone: | | | | | | [address] | [phone] | | | | | | Phone: | | | | | | | [phone] | | | | | | | Fax: | | | | | | | [phone] | | +--------+--------+ + + + + Encounter Details +--------+---------+ + + + | Date | Type | Department | Care Team | Description | +--------+---------+ + + + | 05/11/ | Office | Specialty Clinics | Sudhakar Joy | HSP | | 2015 | Visit | at [facility] [address] | [address] | [facility] | | | [place] Mailcode: | [address] | purpura) nephritis | | | | [facility] [address] | [place], [place] | (Primary Dx); 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 Consider home dialysis. Sudhakar Joy MD documented in this encounter Progress Notes Sudhakar Joy MD - 05/12/2015 8:18 PM PST Pediatric Nephrology Dara was seen on 05/12/2015 for a visit concerning renal transplant option. The problem debi haq for her is: Patient Active Problem List [...] MD Pediatric Nephrology [facility] [address] Mail code [facility] [place], [place] [id number] Estrella Brennan MA - 05/12/2015 10:48 AM [...] Denise | | | | | | [place], [place] | | | | | | [address] | | | | | | [phone] | | | | | | | [...]
--- OUTSIDE RECORDS SUMMARY | ~2019-03-08 | XMS | Encounter Summary ---
Demographics + + + | Address | [address] | | | [place] [address] | + + + | Home Phone [...] + + + | Author | [facility] | | | and [place] | + + + | Organization | [facility] [...] Team Providers + +------+ + | Care Backing In Machine Tender Name | Role | Phone | + +------+ + | Jonathan Alonso MD | PCP | | + +------+ + Encounter Details +--------+ + + + + | Date | Type | Department | Care Team | Description | +--------+ + + + + | 04/09/ | Orders Only | [facility] [place] | Jorje Camp | | | 2018 | | NEPHROLOGY [address] | M, DO [address] | | | | | [address] | [place] | | | | | [place], [place] | [place], [place] | | | | | [address] | [address] | | | | | [phone] | | | +--------+ + + + [...] [address] | | | | | | [place] [address] | | | | | | [phone] | | | | | | | | +--------+---------+ + + + documented as of this encounter Visit Diagnoses Not on filedocumented in this encounter"
--- OUTSIDE RECORDS SUMMARY | ~2019-03-08 | XMS | Encounter Summary ---
Demographics + + + | Address | [address] | | | [place] [address] | + + + | Home Phone [...] | | | | | [place] [address] | | + + + + + | Thania Mallory | ECON | [address] | | | | | [place] [address] | | + + + + + | Deidra Weldon | ECON | [address] | | | | | [place] | | | | | [address] | | + + + + + Care Team Providers + +------+ + | Care Power Plant Electrician Name | Role | Phone | + +------+ + | No Pcp Per Patient | PCP | Unavailable | + +------+ + Reason for Visit + + + | Reason | Comments | + + + | Social Work Waitlist | changes to pt's living/support situation | | Update | | + + + Encounter Details +--------+ + + + + | Date | Type | Department | Care Team | Description | +--------+ + + + + | 06/04/ | Telephone | Clinical | Mariza Hsu | Social Work Waitlist | | 2014 | | Transplant Services | Brigitte [address] | Update (changes to | | | | [address] | [address] | pt's living/support | | | | [address] [place], | [place], [place] | situation) | | | | [place] [address] | [address] | | | | | [phone] | | | +--------+ + + + [...] 2022 | Encounter | | [address] | | | | | | [place] | | | | | | [address] | | | | | | [phone] | | | | | | | | +--------+ + + + + documented as of this encounter Visit Diagnoses Not on filedocumented in this encounter"
--- OUTSIDE RECORDS SUMMARY | ~2019-03-08 | XMS | Encounter Summary ---
Demographics + + + | Address | [address] | | | [place] [address] | + + + | Home Phone [...] | | | | | [place] [address] | | + + + + + | Thania Mallory | ECON | [address] | | | | | [place] [address] | | + + + + + | Deidra Weldon | ECON | [address] | | | | | [place] | | | | | [address] | | + + + + + Care Team Providers + +------+ + | Care Glass Enamel Mixer Name | Role | Phone | + +------+ + | Nereida Roberson MD | PCP | | + +------+ + Reason for Visit + + + | Reason | Comments | + + + | Follow-up visit | r/s f/u appt on 03/16/12 to [place] | + + + Encounter Details +--------+ + + + + | Date | Type | Department | Care Team | Description | +--------+ + + + + | 03/08/ | Telephone | Pediatric | Sudhakar Joy | Follow-up visit (r/s | | 2012 | | Nephrology at | [facility] [address] [facility] | f/u appt on | | | | [place] | [address] | 03/16/12 to [place]) | [facility] | [facility] [place] | | | | | [address] | [address] | | | | | Mailcode: DCAnna | [phone] | | | | | [place] | | | | | | [place], [place] | | | | | | [address] | | | | | | [phone] | | | +--------+ + + + [...] Denise | | | | | | [place], [place] | | | | | | [address] | | | | | | [phone] | | | | | | | | +--------+ + + + + documented as of this encounter Visit Diagnoses Not on filedocumented in this encounter"
--- OUTSIDE RECORDS SUMMARY | ~2019-03-08 | XMS | Encounter Summary ---
Demographics + + + | Address | [address] | | | [place] [address] | + + + | Home Phone [...] + + + | Author | [facility] | | | and Josephana | + + + | Organization | [facility] | | | and [...] Team Providers + +------+ + | Care Acrobatic Rigger Name | Role | Phone | + +------+ + | Jonathan Alonso MD | PCP | | + +------+ + Encounter Details +--------+ + + + + | Date | Type | Department | Care Team | Description | +--------+ + + + + | 03/27/ | Orders Only | [facility] | Rik Simon MD | | | 2014 | | VASCULAR SURGERY | [address] | | | | | ULTRASOUND [address] | [place], [place] | | | | | [address] | [address] | | | | | [place], [place] | [phone] | | | | | [address] | | | | | | [phone] | | | +--------+ + + + [...] DAVIDSON | | | | | | [place] [address] | | | | | | [phone] | | | | | | | | +--------+---------+ + + + documented as of this encounter Procedures + +--------+ + + + | Procedure Name | Priori | Date/Time | Associated Diagnosis | Comments | | | ty | | | | + +--------+ + + + | VAS ARM BILATERAL | Routin | 03/27/2014 | | Results for this | | MAPPING FOR DIALYSIS | e | 2:37 PM | | procedure are in the | | | | PST | | results section. | + +--------+ + + + documented in this encounter Results VAS Arm Bilateral Mapping For Dialysis (03/27/2014 2:37 PM PST) + + | Specimen | + + | | + + + + + | Impressions | Performed At | + + + | 1. 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 Other levels dimension 2 branch vessels discussed in | | | detail above. Electronically signed by Ilya Lau MD on | | | 03/28/2014 9:19 AM | | + + + + + + | Narrative | Performed At | + + + | [facility] DIALYSIS MAPPING BILATERAL | | | 03/27/2014 2:37 PM HISTORY: 19 years. Female. Dialysis mapping | | | for graft or fistula TECHNIQUE: 12 MHz transducer | | | COMPARISON: None FINDINGS: Right arm, upper humerus diameter and | | | depths in millimeters: 4.6/15.7 Mid humerus 4/9.4 with a branch | | | vessel at 2.5 Elbow 3.9/5.7 Upper forearm 2.5/9.1 Mid | | | forearm 2.5/8 Wrist 2.6/4.1 Basilic vein Upper humerus | | | 4.6/17.4 Mid humerus 5.2/16.3 with branch at 2.5 Elbow 5.1/18 | | | Upper forearm 3.7/2.8 Mid forearm 2.8/4 Wrist 2.1/2.8 | | | progressed into the vein 4.9/4 Brachial vein Upper humerus | | | 3.2/16.9 Mid humerus 3.3/15.7 Elbow 2.6/18.8 Axillary vein | | | 3.2/19.6 Radial artery 2/8.8 Artery 2/7.6 Brachial artery | | | 3.4/26.7 Axillary artery 3.7/18.4 On the right side, the | | | right subclavian vein and artery are not visualized. Left side | | | Cephalic vein Upper humerus 4.4/14.8 Mid humerus 3.9/7.7 | | | Above report 5/7.9 with branch at 2.1 Cephalic vein below that | | | point has an old fistula and cannot be directly measured Basilic vein | | | Upper humerus 3.6/15.9 Mid humerus 3.9/16.1, branch 2.0 | | | Elbow 5.4/12.3 Forearm 4.2/3.3 Mid forearm 4.1/3.1 Wrist | | | 2.7/4.3 left antecubital vein 5.5/2.3 Upper humerus in the | | | brachial vein, 4.1/19.8 Mid humerus 3.6/20.4 Elbow 3.4/15.7 | | | Axillary vein 3.8/25.8 Radial artery old fistula Ulnar | | | artery 2.4/5.4 Right shoulder 3.3/15.1 PSV 103 cm/sec. | | | Axillary artery 3.7/20.6 | | + + + + + | Procedure Note | + + | Sonido Steele Conversion - 10/26/2018 12:36 PM PDT [facility] | | DIALYSIS MAPPING BILATERAL03/27/2014 2:37 PM HISTORY:19 years. Female. Dialysis mapping | | for graft or fistula TECHNIQUE:12 MHz transducer COMPARISON:None FINDINGS:Right arm, | | upper humerus diameter and depths in millimeters: 4.6/15.7 Mid humerus 4/9.4 with a | | branch vessel at 2.5 Elbow 3.9/5.7 Upper forearm 2.5/9.1 Mid forearm 2.5/8 Wrist 2.6/4.1 | | Basilic vein Upper humerus 4.6/17.4 Mid humerus 5.2/16.3 with branch at 2.5 Elbow | | 5.1/18 Upper forearm 3.7/2.8 Mid forearm 2.8/4 Wrist 2.1/2.8 progressed into the vein | | 4.9/4 Brachial vein Upper humerus 3.2/16.9 Mid humerus 3.3/15.7 Elbow 2.6/18.8 Axillary | | vein 3.2/19.6 Radial artery 2/8.8 Artery 2/7.6 Brachial artery 3.4/26.7 Axillary artery | | 3.7/18.4 On the right side, the right subclavian vein and artery are not visualized. | | Left side Cephalic vein Upper humerus 4.4/14.8 Mid humerus 3.9/7.7 Above report 5/7.9 | | with branch at 2.1 Cephalic vein below that point has an old fistula and cannot be | | directly measuredBasilic veinUpper humerus 3.6/15.9 Mid humerus 3.9/16.1, branch 2.0 | | Elbow 5.4/12.3 Forearm 4.2/3.3 Mid forearm 4.1/3.1 Wrist 2.7/4.3 left antecubital vein | | 5.5/2.3 Upper humerus in the brachial vein, 4.1/19.8 Mid humerus 3.6/20.4 Elbow 3.4/15.7 | | Axillary vein 3.8/25.8 Radial artery old fistula Ulnar artery 2.4/5.4 Right shoulder | | 3.3/15.1 PSV 103 cm/sec. Axillary artery 3.7/20.6 IMPRESSION: 1. Old fistula noted on | | the right side of the cephalic vein and radial artery. Other levels dimension 2 branch | | vessels discussed in detail above. Electronically signed by Ilya Lau MD on | | 03/28/2014 9:19 AM | |Upper forearm 2.5/9.1 | | | |Mid forearm 2.5/8 | | | |Wrist 2.6/4.1 | | | |Basilic vein | | | |Upper humerus 4.6/17.4 | | | |Mid humerus 5.2/16.3 with branch at 2.5 | | | |Elbow 5.1/18 | | | |Upper forearm 3.7/2.8 | | | |Mid forearm 2.8/4 | | | |Wrist 2.1/2.8 progressed into the vein 4.9/4 | | | |Brachial vein | | | |Upper humerus 3.2/16.9 | | | |Mid humerus 3.3/15.7 | | | |Elbow 2.6/18.8 | | | |Axillary vein 3.2/19.6 | | | |Radial artery 2/8.8 | | | |Artery 2/7.6 | | | |Brachial artery 3.4/26.7 | | | |Axillary artery 3.7/18.4 | | | |On the right side, the right subclavian vein and artery are not visualized. | | | | | |Left side | | | |Cephalic vein | | | |Upper humerus 4.4/14.8 | | | |Mid humerus 3.9/7.7 | | | |Above report 5/7.9 with branch at 2.1 | | | |Cephalic vein below that point has an old fistula and cannot be directly measured | |Basilic vein | |Upper humerus 3.6/15.9 | | | |Mid humerus 3.9/16.1, branch 2.0 | | | |Elbow 5.4/12.3 | | | |Forearm 4.2/3.3 | | | |Mid forearm 4.1/3.1 | | | |Wrist 2.7/4.3 left antecubital vein 5.5/2.3 | | | |Upper humerus in the brachial vein, 4.1/19.8 | | | |Mid humerus 3.6/20.4 | | | |Elbow 3.4/15.7 | | | |Axillary vein 3.8/25.8 | | | |Radial artery old fistula | | | |Ulnar artery 2.4/5.4 | | | |Right shoulder 3.3/15.1 PSV 103 cm/sec. | | | |Axillary artery 3.7/20.6 | | | |IMPRESSION: | |1. 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 Other level s dimension 2 branch vessels discussed in detail above. | | | | | + + documented in this encounter Visit Diagnoses Not on filedocumented in this encounter"
--- OUTSIDE RECORDS SUMMARY | ~2019-03-08 | XMS | Encounter Summary ---
Demographics + + + | Address | [address] | | | [place] [address] | + + + | Home Phone [...] | | | | | [place] [address] | | + + + + + | Thania Mallory | ECON | [address] | | | | | [place] [address] | | + + + + + | Deidra Weldon | ECON | [address] | | | | | [place] | | | | | [address] | | + + + + + Care Team Providers + +------+ + | Care Jet Wiper Name | Role | Phone | + [...] Update | | | | [place] | [facility] | | | | | [facility] | [place], [place] | | | | | [address] [facility] [address] | [address] | | | | | Mailcode: DCH7 | | | | | | Alexander | | | | | | [place], [place] | | | | | | [address] | | | | | | [phone] | | | +--------+ + + + [...] [facility] | | | | | | [address] | | | | | | [phone] | | | | | | | | +--------+ + + + + documented as of this encounter Visit Diagnoses Not on filedocumented in this encounter"
--- OUTSIDE RECORDS SUMMARY | ~2019-03-08 | XMS | Encounter Summary ---
Demographics + + + | Address | [address] | | | [place] [address] | + + + | Home Phone [...] Author + + + | Author | [facility] | + + + | Organization | [facility] | + + + | Address | Unknown | + + + | Phone | Unavailable | + + + Support + + + + + | Name | Relationship | Address | Phone | + + + + + | Cory Weldon | ECON | [address] | | | | | [place] [address] | | + + + + + | Thania Mallory | ECON | [address] | | | | | [place] [address] | | + + + + + | Deidra Weldon | ECON | [address] | | | | | [place] | | | | | [address] | | + + + + + Care Team Providers + +------+ + | Care Bale Stacker Name | Role | Phone | + [...] | 2012 | on | at [facility] [address] | [address] | Family sheet & | | | | [address] | [address] | crossmatch report) | | | | Loop Mailcode: | [place], [place] | | | | | [address] | [address] | | | | | [address] | [phone] | | | | | [place], [place] | | | | | | [address] | | | | | | [phone] | | | +--------+ + + + [...] Denise | | | | | | [place], [place] | | | | | | [address] | | | | | | [phone] | | | | | | | | +--------+ + + + + documented as of this encounter Visit Diagnoses Not on filedocumented in this encounter"
--- OUTSIDE RECORDS SUMMARY | ~2019-03-08 | XMS | Encounter Summary ---
Demographics + + + | Address | [address] | | | [place] [address] | + + + | Home Phone [...] + + + | Author | [facility] | | | and Josephana | + + + | Organization | [facility] [...] Team Providers + +------+ + | Care Corporate Coordinator Name | Role | Phone | + +------+ + PCP | Unavailable | + +------+ + Encounter Details +--------+ + + + + | Date | Type | Department | Care Team | Description | +--------+ + + + + | 05/29/ | Documentati | [facility] D[facility] | Jorje Camp | | | 2014 | on | NEPHROLOGY [address] | M, DO [address] | | | | | [address] | [place] | | | | | [place], [place] | [place], [place] | | | | | [address] | [address] | | | | | [phone] | | | +--------+ + + + [...] + documented as of this encounter Progress Marilyn Jennings - 05/29/2014 12:37 PM PDTManually faxed demographic sheet, copy of [employer] cards, progress note from 04/28/14 and 02/24/14 on 05/29/14 to Manny Whaley MD for up coming appointment. docume nted in this encounter Plan of Treatment +--------+---------+ + + + | Date | Type | Specialty | Care Team | Description | +--------+---------+ + + + | 04/18/ | Office | Pulmonology | Denny Alexander | | | 2019 | Visit | | Deny Briggs MD [address] | | | | | | [address] | | | | | | [place] [address] | | | | | | [phone] | | | | | | | | +--------+---------+ + + + documented as of this encounter Visit Diagnoses Not on filedocumented in this encounter"
--- OUTSIDE RECORDS SUMMARY | ~2019-03-08 | XMS | Encounter Summary ---
Demographics + + + | Address | [address] | | | [place] [address] | + + + | Home Phone [...] | | | | | [place] [address] | | + + + + + | Thania Mallory | ECON | [address] | | | | | [place] [address] | | + + + + + | Deidra Weldon | ECON | [address] | | | | | [place] | | | | | [address] | | + + + + + Care Team Providers + +------+ + | Care Health Workers Name | Role | Phone | + [...] Shun | | | | | [address] | [facility] | | | | | [place], [place] | [place] [address] | | | | | [address] | [phone] | | | | | | | [...] Denise | | | | | | [place], [place] | | | | | | [address] | | | | | | [phone] | | | | | | | | +--------+ + + + + documented as of this encounter Visit Diagnoses Not on filedocumented in this encounter"
--- OUTSIDE RECORDS SUMMARY | ~2019-03-08 | XMS | Encounter Summary ---
Demographics + + + | Address | [address] | | | [place] [address] | + + + | Home Phone [...] | | | | | [place] [address] | | + + + + + | Thania Mallory | ECON | [address] | | | | | [place] [address] | | + + + + + | Deidra Weldon | ECON | [address] | | | | | [place] | | | | | [address] | | + + + + + Care Team Providers + +------+ + | Care Fixture Repairer Fabricator Name | Role | Phone | + [...] | Nephrology at | MD Emanuel [address] [facility] | | | | | [place] | [facility] | | | | | [facility] | [place], [place] | | | | | [address] | [address] | | | | | Mailcode: DCH7 | [phone] | | | | | Alexander | | | | | | [place], [place] | | | | | | [address] | | | | | | [phone] | | | +--------+ + + + [...] Ave | | | | | | [place], [place] | | | | | | [address] | | | | | | [phone] | | | | | | | [...] + + PEDS NEPHROLOGY EXTERNAL RESULTS PANEL (10/05/2015 1:12 PM [...] | | | + +---------+ + + PEDEdil NEPHROLOGY EXTERNAL RESULTS PANEL (09/09/2015 1:00 PM [...]
--- OUTSIDE RECORDS SUMMARY | ~2019-03-08 | XMS | Encounter Summary ---
Demographics + + + | Address | [address] | | | [place] [address] | + + + | Home Phone [...] | | | | | [place] [address] | | + + + + + | Thania Mallory | ECON | [address] | | | | | [place] [address] | | + + + + + | Deidra Weldon | ECON | [address] | | | | | [place] | | | | | [address] | | + + + + + Care Team Providers + +------+ + | Care Accredited Pharmacy Technician Name | Role | Phone | [...] Requested | | | | [address] [place] | [facility] | | | | | [facility], | [place], [place] | | | | | [place] [address] | [address] | | | | | [phone] | | | +--------+ + + + [...] [facility] | | | | | | [address] | | | | | | [phone] | | | | | | | | +--------+ + + + + documented as of this encounter Visit Diagnoses Not on filedocumented in this encounter"
--- OUTSIDE RECORDS SUMMARY | ~2019-03-08 | XMS | Encounter Summary ---
Demographics + + + | Address | [address] | | | [place] [address] | + + + | Home Phone [...] | | | | | [place] [address] | | + + + + + | Thania Mallory | ECON | [address] | | | | | [place] [address] | | + + + + + | Deidra Weldon | ECON | [address] | | | | | [place] | | | | | [address] | | + + + + + Care Team Providers + +------+ + | Care Belt Notcher Name | Role | Phone | + [...] RN [address] | Requested | | | | Alexander | [facility] | | | | | [facility] | [place], [place] | | | | | [address] [place] [address] Dr | [address] | | | | | Mailcode: DCH7 | | | | | | Alexander | | | | | | [place], [place] | | | | | | [address] | | | | | | [phone] | | | +--------+ + + + [...] | 2022 | Encounter | | [address] | | | | | | [place] | | | | | | [address] | | | | | | [phone] | | | | | | | | +--------+ + + + + documented as of this encounter Visit Diagnoses Not on filedocumented in this encounter"
--- OUTSIDE RECORDS SUMMARY | ~2019-03-08 | XMS | Encounter Summary ---
Demographics + + + | Address | [address] | | | [place] [address] | + + + | Home Phone | | + + + | Preferred Language | Unknown | + + + | Marital Status | Single | + + + | Jainism Affiliation | Unknown | + + + | Race | Unknown | + + + | Ethnic Group | Unknown | + + + Author + + + | Author | [facility] | | | and Josephana | + + + | Organization | [facility] | | | and Josephana | [...] Team Providers + +------+ + | Care Adult Basic Education Instructor Name | Role | Phone | [...] + + | 12/17/ | Telephone | [facility] | [place], | Appointment | | 2019 | | CENTER CASE | Irish Obrien CMA | (Appointment with | | | | MANAGEMENT [address] | | PCP needed) | | | | [address] | | | | | | [place], [place] | | | | | | [address] | | | | | | [phone] | | | +--------+ + + + [...] [address] | | | | | | [place] [address] | | | | | | [phone] | | | | | | | | +--------+---------+ + + + documented as of this encounter Visit Diagnoses Not on filedocumented in this encounter"
--- OUTSIDE RECORDS SUMMARY | ~2019-03-08 | XMS | Encounter Summary ---
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
--- OUTSIDE RECORDS SUMMARY | ~2019-03-08 | XMS | Encounter Summary ---
Demographics + + + | Address | [address] | | | [place] [address] | + + + | Home Phone [...] + + + | Author | [facility] | | | and Josephana | + + + | Organization | [facility] | | | and Josephana [...] Providers + +------+ + | Care Director Strategy Name | Role | Phone | + [...] | | | | | | | CT | | | | | | | [...] + + + + | 02/24/ | Hospital | [facility] | Blake Chavarria | ESRD (end stage | | 2013 | Encounter | MED CTR OR INTRA OP | MD Antonieta, FACS [address] | renal disease) (FORMERLY [facility]) | | | | [address] | [facility] | (Primary Dx) | | | | [place] | [place] [address] | | | | | [address] | [phone] | | | | | [phone] | | | +--------+ + + + [...] might be different f rom the original. [facility] POST-OP INSTRUCTIONS: Arterio-Venous Fistula 1. Keep the [...] may interact with prescription medicines or other ibtw-ktn-ymttopw (OTC) drugs. The FDA recommends reading OTC medication labels careful ly to clearly understand the list of active ingredients, directions, and any precautions to help avoid taking too muchacetaminophen. If you have questions, ask your pharmacist or regional medical center care provider. Managing Nausea Some people have [...] or skin changes (rash, itching, or hives). 1474-9896 [employer] [address] [place] [address], [place] [address]. All righ ts reserved. This information is [...] [address] | | | | | | [address] | | | | | | [place] [address] | | | | | | [phone] | | | | | | | | +--------+---------+ + + + + +------+--------+ + + [...] [facility] | | | | | | [facility] | | [...] [facility] | | | | [facility] | | | | | | MEDICAL | | | | | | CENTER - | | | | | | LABORATORY | | + + + + + + | Creatinine | 9.21 (HH)Comment: Alert | 0.60 - 1.30 | [facility] | | | | Value: Clinical Provider | mg/dL | [facility] | | | | notification at Nurses | | MEDICAL | | | | discretion. | | CENTER - | | | | | | LABORATORY | | + + + + + + | eGFR if not | Comment: GFR not | >=60 | [facility] | | | | calculated for this age | mL/min/1.73m2 | [facility] | | | [place] | (<18). | | MEDICAL | | | | | | CENTER - | | | | | | LABORATORY | | + + + + + + | Calcium | 8.8 | 8.3 - 10.5 | [facility] | | | | | mg/dL | [facility] | | | | | | MEDICAL | | | | | | CENTER - | | | | | | LABORATORY | | + + + + + + | BUN/Creatin | 5.6 | | [facility] | | | ine Ratio | | | [facility] | | | | | | [...] | + + + + + | [facility] | [address] | [place], [place] | [phone] | | [facility] | | [address] | | | - LABORATORY | | | | + + + + + | [facility] | [address] | [place], [place] | | | [facility] | | [address] | | | - LABORATORY | | [...] | | | + +--------+ +--------+------+------+ | fentaNYL injection 25-50 mcg | Given [...] | | | | + +--------+ +--------+------+------+ +---+---+ | | | +---+---+ + +-------+ [...]
--- OUTSIDE RECORDS SUMMARY | ~2019-03-08 | XMS | Encounter Summary ---
Demographics + + + | Address | [address] | | | [place] [address] | + + + | Home Phone | | + + + | Preferred Language | Unknown | + + + | Marital Status | Single | + + + | Hinduism Affiliation | Unknown | + + + [...] | | | | | [place] [address] | | + + + + + | Thania Mallory | ECON | [address] | | | | | [place] [address] | | + + + + + | Deidar Weldon | ECON | [address] | | | | | [place] | | | | | [address] | | + + + + + Care Team Providers + +------+ + | Care Day Spa Manager Name | Role | Phone [...] | MD Emanuel [address] [facility] | Requested (UDS) | | | | Alexander | [address] | | | | | [facility] | [place], [place] | | | | | [address] [facility] [address] | [address] | | | | | Mailcode: DCH7 | [phone] | | | | | Alexander | | | | | | [place], [place] | | | | | | [address] | | | | | | [phone] | | | +--------+ + + + [...] Denise | | | | | | [place], [place] | | | | | | [address] | | | | | | [phone] | | | | | | | | +--------+ + + + + documented as of this encounter Visit Diagnoses Not on filedocumented in this encounter"
--- OUTSIDE RECORDS SUMMARY | ~2019-03-08 | XMS | Encounter Summary ---
Demographics + + + | Address | [address] [place] [address] | | | [place] [address] | + + + | Home Phone [...] | | | | | [place] [address] | | + + + + + | Thania Mallory | ECON | [address] | | | | | [place] [address] | | + + + + + | Deidra Weldon | ECON | [address] | | | | | [place] | | | | | [address] | | + + + + + Care Team Providers + +------+ + | Care Sales Agent Casualty Insurance Name | Role | Phone | + [...] | | | [address] | [facility] | | | | | Caro [address] [place], | [place], [place] | | | | | [place] [address] | [address] | | | | | [phone] | [phone] | | | | | | | [...] Denise | | | | | | [place] | | | | | | [address] | | | | | | [phone] | | | | | | | | +--------+ + + + + documented as of this encounter Visit Diagnoses Not on filedocumented in this encounter"
--- OUTSIDE RECORDS SUMMARY | ~2019-03-08 | XMS | Encounter Summary ---
Demographics + + + | Address | [address] | | | [place] [address] | + + + | Home Phone | | + + + | Preferred Language | Unknown | + + + | Marital Status | Single | + + + | Church Affiliation | Unknown | + + + | Race | Unknown | + + + | Ethnic Group | Unknown | + + + Author + + + | Author | [facility] | | | and Josephana | + + + | Organization | [facility] | | | and [...] Team Providers + +------+ + | Care Geotechnical Intern Name | Role | Phone | + +------+ + | Jonathan Alonso MD | PCP | | + +------+ + Reason for Visit + + + | Reason | Comments | + + + | Kidney Transplant | | | Pre-evaluation | | + + + Encounter Details +--------+ + + + + | Date | Type | Department | Care Team | Description | +--------+ + + + + | 06/12/ | Telephone | [facility]ATHY [facility]ETT | Meño Tran | Kidney Transplant | | 2018 | | [facility] | MD Linda [address] | Pre-evaluation | | | | KIDNEY TRANSPLANT | [address], | | | | | [address] [place] | [place] [address] | | | | | [address] [place] | [phone] | | | | | [address] | | | | | | [phone] | | | +--------+ + + + [...] encounter Progress Notes Elodia Hutchins - 06/13/2018 1:58 PM PDTReferral Called lvm documented in thi s encounter Plan of Treatment +--------+---------+ + + + | Date | Type | Specialty | Care Team | Description | +--------+---------+ + + + | 04/18/ | Office | Pulmonology | Denny Alexander | | | 2020 | Visit | | Deny Briggs MD [address] | | | | | | [address] | | | | | | [place] [address] | | | | | | [phone] | | | | | | | | +--------+---------+ + + + documented as of this encounter Visit Diagnoses Not on filedocumented in this encounter"
--- OUTSIDE RECORDS SUMMARY | ~2019-03-08 | XMS | Encounter Summary ---
Demographics + + + | Address | [address] | | | [place] [address] | + + + | Home Phone [...] | | | | | [place] [address] | | + + + + + | Thania Mallory | ECON | [address] | | | | | [place] [address] | | + + + + + | Deidra Weldon | ECON | [address] | | | | | [place] | | | | | [address] | | + + + + + Care Team Providers + +------+ + | Care Salesperson [employer] Name | Role | Phone | + [...] | | | [address] | [facility] | | | | | [place], | [place], [place] | | | | | [place] [address] | [address] | | | | | [phone] | | | +--------+ + + + [...] Denise | | | | | | [place], [place] | | | | | | [address] | | | | | | [phone] | | | | | | | | +--------+ + + + + documented as of this encounter Visit Diagnoses Not on filedocumented in this encounter"
--- OUTSIDE RECORDS SUMMARY | ~2019-03-08 | XMS | Encounter Summary ---
Demographics + + + | Address | [address] | | | [place] [address] | + + + | Home Phone [...] Author | [facility] | | | and Josephana | + + + | Organization | [facility] | | | and Josephana | [...] Team Providers + +------+ + | Care Hardness Tester Name | Role | Phone | + [...] NEPHROLOGY [address] | M, DO [address] | | | | | [address] | [place] | | | | | [place], [place] | [place], [place] | | | | | [address] | [address] | | | | | [phone] | | | +--------+ + + + [...] [address] | | | | | | [place] [address] | | | | | | [phone] | | | | | | | | +--------+---------+ + + + documented as of this encounter Visit Diagnoses Not on filedocumented in this encounter"
--- OUTSIDE RECORDS SUMMARY | ~2019-03-08 | XMS | Encounter Summary ---
Demographics + + + | Address | [address] | | | [place] [address] | + + + | Home Phone [...] | | | | | [place] [address] | | + + + + + | Thania Mallory | ECON | [address] | | | | | [place] [address] | | + + + + + | Deidra Weldon | ECON | [address] | | | | | [place] | | | | | [address] | | + + + + + Care Team Providers + +------+ + | Care Business Consultant Name | Role | Phone | [...] | | | | [address] [place] | [facility] | | | | | [facility], | [place], [place] | | | | | [place] [address] | [address] | | | | | [phone] | | | +--------+ + + + [...] [place] | | | | | | [address] | | | | | | [phone] | | | | | | | | +--------+ + + + + documented as of this encounter Visit Diagnoses Not on filedocumented in this encounter"
--- OUTSIDE RECORDS SUMMARY | ~2019-03-08 | XMS | Encounter Summary ---
Demographics + + + | Address | [address] | | | [place] [address] | + + + | Home Phone [...] | Author | [facility] | | | and Josephana | + + + | Organization | [facility] | | | and Josephana [...] Team Providers + +------+ + | Care Product Promoter Sales Person Name | Role | Phone | [...] | stage renal | [address] | [address] [place] [address] | | | | | disease) | [address] | [place] | | | | | ([facility]) | [address] | [address] [place] | | | | | Anemia in | [place], [place] | [place] | | | | | ESRD | [address] | [address] Phone: | | | | | (end-stage | Phone: | [phone] | | | | | renal | [phone] | Fax: | | | | | disease) | Fax: | [phone] | | | | | ([facility]) | [phone] | | | | | | Procedures | | | | | | | DE OFFICE | | | | | | [...] M, DO [address] | renal disease) ([facility]) | | | | [address] | [place], [address] | (Primary Dx); | | | | [place], [place] | [place], [place] | Anemia in ESRD | | | | [address] | [address] | (end-stage renal | | | | [phone] | | disease) ([facility]) | +--------+ + + + + [...] rechec k her in 2 weeks. CC: Tok Fina Joy MD, [facility], [facility] signed by Jorje Camp DO at [...] [address] | | | | | | [place] [address] | | | | | | [phone] | | | | | | | | +--------+---------+ + + + documented as of this encounter Visit Diagnoses + + | Diagnosis | + + | ESRD (end stage renal disease) ([facility]) - Primary End stage renal disease | + + | Anemia in ESRD (end-stage renal disease) ([facility]) Anemia in chronic kidney disease | + + documented in this encounter"
--- OUTSIDE RECORDS SUMMARY | ~2019-03-08 | XMS | Encounter Summary ---
Demographics + + + | Address | [address] | | | [place] [address] | + + + | Home Phone [...] | | | | | [place] [address] | | + + + + + | Thania Mallory | ECON | [address] | | | | | [place] [address] | | + + + + + | Deidra Weldon | ECON | [address] | | | | | [place] | | | | | [address] | | + + + + + Care Team Providers + +------+ + | Care Coremaker Floor Name | Role | Phone | + [...] | | | [address] | [place] [address] | | | | | [address] [place], | [place], [place] | | | | | [place] [address] | [address] | | | | | [phone] | [phone] | | | | | | | [...] [place] | | | | | | [address] | | | | | | [phone] | | | | | | | | +--------+ + + + + documented as of this encounter Visit Diagnoses Not on filedocumented in this encounter"
--- OUTSIDE RECORDS SUMMARY | ~2019-03-08 | XMS | Encounter Summary ---
Demographics + + + | Address | [address] | | | [place] [address] | + + + | Home Phone | | + + + | Preferred Language | Unknown | + + + | Marital Status | Single | + + + | Zoroastrian Affiliation | Unknown | + + + | Race | Unknown | + + + | Ethnic Group | Unknown | + + + Author + + + | Author | [facility] | | | and [place]ana | + + + | Organization | [facility] | | | and [...] Team Providers + +------+ + | Care Job Forwarder Name | Role | Phone | + +------+ + PCP | Unavailable | + +------+ + Encounter Details +--------+ + + + + | Date | Type | Department | Care Team | Description | +--------+ + + + + | 08/31/ | Hospital | [facility] | Conversion | ESRD (end stage | | 2016 | Encounter | CENTER CV [facility]TRA OP | Transaction, | renal disease) (HCC) | | | | [address] | Provider Unknown | | | | | [place], [place] | | | | | | [address] | (Fax) | | | | | [phone] | Doyle Diaz MD | | +--------+ [...] + + + | Blood Pressure | 113/68 | 09/01/2015 10:00 AM | | | | | PDT | | + + + + + | Pulse | 72 | 09/01/2015 10:00 AM | | | | | PDT | | + + + + + | Temperature | 36.9 C (98.4 F) | 09/01/2015 10:00 AM | | | | | PDT | | + + + + + | Respiratory Rate | 15 | 09/01/2015 10:00 AM | | | | | PDT | | + + + + + | Oxygen Saturation | - | - | | + + + + + | Inhaled Oxygen | - | - | | | Concentration | | | | + + + + + | Weight | 99.8 kg (220 lb) | 09/01/2015 10:00 AM | | | | | PDT | | + + + + + | Height | 167.6 cm (5' 6") | 09/01/2015 10:00 AM | | | | | PDT | | + + + + + | Body Mass Index | 35.51 | 09/01/2015 10:00 AM | | | | | PDT [...] + + + +---------+ + + | aspirin 81 MG | Take 1 tablet by | | 0 | 08/17/19 | | | tablet | mouth Daily. | | | 16 | 7 | + + + +---------+ + + [...] tablet by | 30 | 11 | 08/17/19 | | | (PLAVIX) 75 mg | mouth Daily. | tablet | | 16 | 7 | | tablet | | [...] E | | | | | | [place] [address] | | | | | | [phone] | | | | | | | | +--------+---------+ + + + documented as of this encounter Procedures + +--------+ + + + | Procedure Name | Priori | Date/Time | Associated Diagnosis | Comments | | | ty | | | | + +--------+ + + + | IR INJECTION | Routin | 09/01/2015 | | Results for this | | DIALYSIS CIRCUIT W | e | 10:05 AM | | procedure are in the | | ANGIOPLASTY | | PDT | | results section. | + +--------+ + + + | IR INJECTION | Routin | 09/01/2015 | | Results for this | | DIALYSIS CIRCUIT | e | 10:05 AM | | procedure are in the | | | | PDT | | results section. | + +--------+ + + + | POTASSIUM | Routin | 09/01/2015 | | Results for this | | | e | 8:56 AM | | procedure are in the | | | | PDT | | results section. | + +--------+ + + + documented in this encounter Results IR Inj Dialysis Circuit w Angioplasty (09/01/2015 10:05 AM PDT) + + | Specimen | + + | | + + + + + | Impressions | Performed At | + + + | Diffuse in-stent stenosis involving an existing stent within the | | | juxta-anastomotic venous outflow, angioplastied using a 6 mm balloon. | | | Post-angioplasty AV fistula venogram demonstrates a patent | | | juxta-anastomotic venous outflow without significant residual | | | stenosis. PLAN: Follow-up AVF venogram in 90 days. | | | | | + + + + + + | Narrative | Performed At | + + + | CLINICAL DATA: 20-year-old woman with left upper extremity AV | | | fistula for hemodialysis. Difficulty with cannulation during | | | hemodialysis. PROCEDURES PERFORMED: 1. IR DIALYSIS FISTULAGRAM | | | 2. IR ANGIOPLASTY AV FISTULA VENOUS SOCIAL [employer]: Doyle Diaz MD | | | CONSENT: The risks, benefits and alternatives of the procedure were | | | discussed with the patient. Signed consent was given as witnessed by | | | nursing staff. SEDATION: Moderate conscious sedation was | | | administered during the procedure by the physician and nursing staff | | | with continuous hemodynamic monitoring throughout the procedure. | | | Total Sedation: Versed: 6 mg; Total Sedation Time: 30 min. | | | ANTIBIOTIC PROPHYLAXIS: none CONTRAST: 30 mL Isovue-250 | | | FLUOROSCOPY TIME: 3.9 min, Dose 34 mGy TECHNIQUE/FINDINGS: | | | Patient was placed supine on the fluoroscopy table. The left arm was | | | prepped and draped in sterile fashion. Local anesthesia administered | | | with 1% lidocaine. The venous outflow of the AV fistula was | | | accessed in retrograde fashion using a 21-gauge micropuncture needle. | | | Over a guidewire, a 4 German angled catheter was advanced and | | | positioned within the inflow brachial artery. Contrast was | | | administered and a left upper extremity AV fistula venogram was | | | performed in successive stations centrally. Diffuse in-stent | | | stenosis involving an existing stent within the juxta-anastomotic | | | venous outflow. The remainder of the cephalic venous outflow appears | | | patent without significant stenosis. The central veins including | | | the left subclavian vein, left innominate vein and SVC appear patent | | | without significant stenosis. The AV anastomosis appears patent. | | | ANGIOPLASTY: Over a guidewire, a 6 German sheath was advanced | | | and positioned into the venous outflow. Over a guidewire, | | | angioplasty of the juxta-anastomotic in-stent stenosis was performed | | | using a 6 mm balloon. Post-angioplasty AV fistulogram demonstrates a | | | patent juxta-anastomotic venous outflow without significant residual | | | stenosis. All wires and catheters were subsequently removed. | | | Hemostasis achieved using purse string suture. Patient tolerated | | | procedure well. No immediate complications. EBL: Minimal. | | | COMPLICATIONS: None. | | + + + + + | Procedure Note | + + | Sonido Steele Conversion - 10/18/2018 9:20 PM PDT CLINICAL DATA: 20-year-old woman with | | left upper extremity AV fistula for hemodialysis. Difficulty with cannulation during | | hemodialysis. PROCEDURES PERFORMED:1. IR DIALYSIS FISTULAGRAM2. IR ANGIOPLASTY AV | | FISTULA [facility]: Doyle Diaz MD CONSENT: The risks, benefits and alternatives | | of the procedure were discussed with the patient. Signed consent was given as witnessed | | by nursing staff. SEDATION: Moderate conscious sedation was administered during the | | procedure by the physician and nursing staff with continuous hemodynamic monitoring | | throughout the procedure. Total Sedation: Versed: 6 mg; Total Sedation Time: 30 min. | | ANTIBIOTIC PROPHYLAXIS: none CONTRAST: 30 mL Isovue-250 FLUOROSCOPY TIME: 3.9 min, Dose | | 34 mGy TECHNIQUE/FINDINGS:Patient was placed supine on the fluoroscopy table. The left | | arm was prepped and draped in sterile fashion. Local anesthesia administered with 1% | | lidocaine. The venous outflow of the AV fistula was accessed in retrograde fashion using | | a 21-gauge micropuncture needle. Over a guidewire, a 4 German angled catheter was | | advanced and positioned within the inflow brachial artery. Contrast was administered and | | a left upper extremity AV fistula venogram was performed in successive stations | | centrally. Diffuse in-stent stenosis involving an existing stent within the | | juxta-anastomotic venous outflow. The remainder of the cephalic venous outflow appears | | patent without significant stenosis. The central veins including the left subclavian | | vein, left innominate vein and SVC appear patent without significant stenosis. The AV | | anastomosis appears patent. ANGIOPLASTY:Over a guidewire, a 6 German sheath was | | advanced and positioned into the venous outflow. Over a guidewire, angioplasty of the | | juxta-anastomotic in-stent stenosis was performed using a 6 mm balloon. Post-angioplasty | | AV fistulogram demonstrates a patent juxta-anastomotic venous outflow without | | significant residual stenosis. All wires and catheters were subsequently removed. | | Hemostasis achieved using purse string suture. Patient tolerated procedure well. No | | immediate complications. EBL: Minimal. COMPLICATIONS: None. IMPRESSION: Diffuse in-stent | | stenosis involving an existing stent within the juxta-anastomotic venous outflow, | | angioplastied using a 6 mm balloon. Post-angioplasty AV fistula venogram demonstrates a | | patent juxta-anastomotic venous outflow without significant residual stenosis. PLAN: | | Follow-up AVF venogram in 90 days. | | 10:04 AM | |Over a guidewire, a 6 German sheath was advanced and positioned into the venous outflow. | | | |Over a guidewire, angioplasty of the juxta-anastomotic in-stent stenosis was performed usin g a 6 mm balloon. Post-angioplasty AV fistulogram demonstrates a patent juxta-anastomotic ve nous outflow without significant residual stenosis. | | | |All wires and catheters were subsequently removed. Hemostasis achieved using purse string s uture. | | | |Patient tolerated procedure well. No immediate complications. | | | |EBL: Minimal. | | | |COMPLICATIONS: None. | | | |IMPRESSION: | |Diffuse in-stent stenosis involving an existing stent within the juxta-anastomotic venous o utflow, angioplastied using a 6 mm balloon. Post-angioplasty AV fistula venogram demonstrate s a patent juxta-anastomotic venous outflow without significant | |residual stenosis. | | | |PLAN: Follow-up AVF venogram in 90 days. | | | | | + + IR Inj Dialysis Circuit (09/01/2015 10:05 AM PDT) + + | Specimen | + + | | + + + + + | Impressions | Performed At | + + + | Diffuse in-stent stenosis involving an existing stent within the | | | juxta-anastomotic venous outflow, angioplastied using a 6 mm balloon. | | | Post-angioplasty AV fistula venogram demonstrates a patent | | | juxta-anastomotic venous outflow without significant residual | | | stenosis. PLAN: Follow-up AVF venogram in 90 days. | | | | | + + + + + + | Narrative | Performed At | + + + | CLINICAL DATA: 20-year-old woman with left upper extremity AV | | | fistula for hemodialysis. Difficulty with cannulation during | | | hemodialysis. PROCEDURES PERFORMED: 1. IR DIALYSIS FISTULAGRAM | | | 2. IR ANGIOPLASTY AV FISTULA [facility] [employer] [facility]: Doyle Diaz MD | | | CONSENT: The risks, benefits and alternatives of the procedure were | | | discussed with the patient. Signed consent was given as witnessed by | | | nursing staff. SEDATION: Moderate conscious sedation was | | | administered during the procedure by the physician and nursing staff | | | with continuous hemodynamic monitoring throughout the procedure. | | | Total Sedation: Versed: 6 mg; Total Sedation Time: 30 min. | | | ANTIBIOTIC PROPHYLAXIS: none CONTRAST: 30 mL Isovue-250 | | | FLUOROSCOPY TIME: 3.9 min, Dose 34 mGy TECHNIQUE/FINDINGS: | | | Patient was placed supine on the fluoroscopy table. The left arm was | | | prepped and draped in sterile fashion. Local anesthesia administered | | | with 1% lidocaine. The venous outflow of the AV fistula was | | | accessed in retrograde fashion using a 21-gauge micropuncture needle. | | | Over a guidewire, a 4 German angled catheter was advanced and | | | positioned within the inflow brachial artery. Contrast was | | | administered and a left upper extremity AV fistula venogram was | | | performed in successive stations centrally. Diffuse in-stent | | | stenosis involving an existing stent within the juxta-anastomotic | | | venous outflow. The remainder of the cephalic venous outflow appears | | | patent without significant stenosis. The central veins including | | | the left subclavian vein, left innominate vein and SVC appear patent | | | without significant stenosis. The AV anastomosis appears patent. | | | ANGIOPLASTY: Over a guidewire, a 6 German sheath was advanced | | | and positioned into the venous outflow. Over a guidewire, | | | angioplasty of the juxta-anastomotic in-stent stenosis was performed | | | using a 6 mm balloon. Post-angioplasty AV fistulogram demonstrates a | | | patent juxta-anastomotic venous outflow without significant residual | | | stenosis. All wires and catheters were subsequently removed. | | | Hemostasis achieved using purse string suture. Patient tolerated | | | procedure well. No immediate complications. EBL: Minimal. | | | COMPLICATIONS: None. | | + + + + + | Procedure Note | + + | Cedric, Rad Conversion - 10/18/2018 9:20 PM PDT CLINICAL DATA: 20-year-old woman with | | left upper extremity AV fistula for hemodialysis. Difficulty with cannulation during | | hemodialysis. PROCEDURES PERFORMED:1. IR DIALYSIS FISTULAGRAM2. IR ANGIOPLASTY AV | | FISTULA [facility] [employer]: Doyle Diaz MD CONSENT: The risks, benefits and alternatives | | of the procedure were discussed with the patient. Signed consent was given as witnessed | | by nursing staff. SEDATION: Moderate conscious sedation was administered during the | | procedure by the physician and nursing staff with continuous hemodynamic monitoring | | throughout the procedure. Total Sedation: Versed: 6 mg; Total Sedation Time: 30 min. | | ANTIBIOTIC PROPHYLAXIS: none CONTRAST: 30 mL Isovue-250 FLUOROSCOPY TIME: 3.9 min, Dose | | 34 mGy TECHNIQUE/FINDINGS:Patient was placed supine on the fluoroscopy table. The left | | arm was prepped and draped in sterile fashion. Local anesthesia administered with 1% | | lidocaine. The venous outflow of the AV fistula was accessed in retrograde fashion using | | a 21-gauge micropuncture needle. Over a guidewire, a 4 German angled catheter was | | advanced and positioned within the inflow brachial artery. Contrast was administered and | | a left upper extremity AV fistula venogram was performed in successive stations | | centrally. Diffuse in-stent stenosis involving an existing stent within the | | juxta-anastomotic venous outflow. The remainder of the cephalic venous outflow appears | | patent without significant stenosis. The central veins including the left subclavian | | vein, left innominate vein and SVC appear patent without significant stenosis. The AV | | anastomosis appears patent. ANGIOPLASTY:Over a guidewire, a 6 German sheath was | | advanced and positioned into the venous outflow. Over a guidewire, angioplasty of the | | juxta-anastomotic in-stent stenosis was performed using a 6 mm balloon. Post-angioplasty | | AV fistulogram demonstrates a patent juxta-anastomotic venous outflow without | | significant residual stenosis. All wires and catheters were subsequently removed. | | Hemostasis achieved using purse string suture. Patient tolerated procedure well. No | | immediate complications. EBL: Minimal. COMPLICATIONS: None. IMPRESSION: Diffuse in-stent | | stenosis involving an existing stent within the juxta-anastomotic venous outflow, | | angioplastied using a 6 mm balloon. Post-angioplasty AV fistula venogram demonstrates a | | patent juxta-anastomotic venous outflow without significant residual stenosis. PLAN: | | Follow-up AVF venogram in 90 days. | | 10:04 AM | |Over a guidewire, a 6 German sheath was advanced and positioned into the venous outflow. | | | |Over a guidewire, angioplasty of the juxta-anastomotic in-stent stenosis was performed usin g a 6 mm balloon. Post-angioplasty AV fistulogram demonstrates a patent juxta-anastomotic ve nous outflow without significant residual stenosis. | | | |All wires and catheters were subsequently removed. Hemostasis achieved using purse string s uture. | | | |Patient tolerated procedure well. No immediate complications. | | | |EBL: Minimal. | | | |COMPLICATIONS: None. | | | |IMPRESSION: | |Diffuse in-stent stenosis involving an existing stent within the juxta-anastomotic venous o utflow, angioplastied using a 6 mm balloon. Post-angioplasty AV fistula venogram demonstrate s a patent juxta-anastomotic venous outflow without significant | |residual stenosis. | | | |PLAN: Follow-up AVF venogram in 90 days. | | | | | + + Potassium (09/01/2015 8:56 AM PDT) + + + + + + | Component | Value | Ref Range | Performed | Pathologist | | | | | At | Signature | + + + + + + | K | 4.0Comment: Testing | 3.5 - 4.9 | EXTERNAL | | | | performed at [facility] | mmol/L | LAB | | | | [address]ica [address];[place], [place] | | | | | | [address] | | | | + + + [...]
--- OUTSIDE RECORDS SUMMARY | ~2019-03-08 | XMS | Encounter Summary ---
Demographics + + + | Address | [address] | | | [place] [address] | + + + | Home Phone | | + + + | Preferred Language | Unknown | + + + | Marital Status | Single | + + + | Restorationist Affiliation | Unknown | + + + | Race | Unknown | + + + | Ethnic Group | Unknown | + + + Author + + + | Author | [facility] | | | and [place] | + + + | Organization | [facility] [...] Team Providers + +------+ + | Care Airfield Operations Specialist Name | Role | Phone | + +------+ + PCP | Unavailable | + +------+ + Encounter Details +--------+ + + + + | Date | Type | Department | Care Team | Description | +--------+ + + + + | 01/27/ | Hospital | [facility] | Sudhakar Joy | | | 2009 | Encounter | JOY | MD Emanuel [address] | | | | | [address]PART[address] | [facility] | | | | | [address] | [place], [place] | | | | | [place], [place] | [address] | | | | | [address] | [phone] | | | | | [phone] | | | +--------+ + + + [...] [place] | | | | | | [place] [address] | | | | | | [phone] | | | | | | | | +--------+---------+ + + + documented as of this encounter Visit Diagnoses Not on filedocumented in this encounter"
--- OUTSIDE RECORDS SUMMARY | ~2019-03-08 | XMS | Encounter Summary ---
Demographics + + + | Address | [address] | | | [place] [address] | + + + | Home Phone [...] | | | | | [place] [address] | | + + + + + | Thania Mallory | ECON | [address] | | | | | [place] [address] | | + + + + + | Deidra Weldon | ECON | [address] | | | | | [place] | | | | | [address] | | + + + + + Care Team Providers + +------+ + | Care Truck Rental Clerk Name | Role | Phone | [...] | 04/23/ | Documentati | Clinical | eKlsi Martinez, | Other (Update) | | 2016 | on | Transplant Services | RN [address] | | | | | [address] [place] | [facility] | | | | | [place], | [place], [place] | | | | | [place] [address] | [address] | | | | | [phone] | | | +--------+ + + + [...] [place] | | | | | | [address] | | | | | | [phone] | | | | | | | | +--------+ + + + + documented as of this encounter Visit Diagnoses Not on filedocumented in this encounter"
--- OUTSIDE RECORDS SUMMARY | ~2019-03-08 | XMS | Encounter Summary ---
Demographics + + + | Address | [address] | | | [place] [address] | + + + | Home Phone [...] | | | | | [place] [address] | | + + + + + | Thania Mallory | ECON | [address] | | | | | [place] [address] | | + + + + + | Deidra Weldon | ECON | [address] | | | | | [place] | | | | | [address] | | + + + + + Care Team Providers + +------+ + | Care Senior Linux Engineer Name | Role | Phone | [...] | | | | | [place], | | | | | | [place] [address] | | | +--------+ + + + [...] Denise | | | | | | [place], [place] | | | | | | [address] | | | | | | [phone] | | | | | | | [...] DANILO - | [address], | [place] [address] | | | IMMUNOGENETICS/TRANS | [address] | | | | [facility] | | | | + + + + + documented in this encounter Visit Diagnoses Not on filedocumented in this encounter"
--- OUTSIDE RECORDS SUMMARY | ~2019-03-08 | XMS | Clinical Summary ---
Demographics + + + | Address | [address] | | | [place] [address] | + + + | Home Phone | | + + + | Preferred Language | Unknown | + + + | Marital Status | Single | + + + | Mosque Affiliation | Unknown | + + + | Race | Unknown | + + + | Ethnic Group | Unknown | + + + Author + + + | Author | [facility] | | | and [place] | + + + | Organization | [facility] | | | and [place] | [...] Team Providers + +------+ + | Care Insurance Manager Name | Role | Phone | [...] | | | | renal disease) ([facility]) | protocol | | | | [...] Overview: Active Kidney Transplant Waiting List at [facility]: | | 03/07/2014 | + [...] | | Treated by Dr. Joy, pediatric physician assistant. | + + + +---+ | [...] declot | | but reclotted). Listed at [facility] for kidney transplant - status [...] | Usha Del Castillo MD | dialysis ([facility]); | | 2018 | | | | Chronic pleural | | | | | | effusion; | | | | | | Noncompliance with | | | | | | renal dialysis | | | | | | ([facility]); Acute | | | | | | respiratory | | | | | | distress; Anemia in | | | | | | ESRD (end-stage | | | | | | renal disease) | | | | | | ([facility]); At high risk | | | | | | for electrolyte | | | | | | imbalance; ESRD on | | | | | | hemodialysis ([facility]); | | | | | | [...] | | 2019 | | | D, Commissioner Of Conciliation | | +--------+ + + + + | 01/07/ | Hospital | Internal Medicine | Florian Nelson, | Hyperkalemia | | 2019 - | Encounter | | Megan Fields DO | (Primary Dx); ESRD | | | | | Nicholas Sutton MD | needing dialysis | | 01/10/ | | | Piedad Mosquera, | ([facility]); Acute | | 2018 | | | MD Kline, | respiratory | | | | | DO Paty | distress; Recurrent | | | | | | right pleural | | | | | | effusion; Anemia in | | | | | | ESRD (end-stage | | | | | | renal disease) | | | | | | ([facility]); At high risk | | | | | | for electrolyte | | | | | | imbalance; 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 | | | | | | failure ([facility]); | | | | | | 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 | | | | | | ([facility]); ESRD on | | | | | | hemodialysis ([facility]); | | | | | | Noncompliance; [...] present | | | | | | ([facility]) (Primary Dx); | | | | | | Pneumonia of right | | | | | | lower lobe due to | | | | | | infectious organism | | | | | | ([facility]); Hypoxia; | | | | | | Hypervolemia, | | | | | | unspecified | | | | | | hypervolemia type; | | | | | | ESRD on dialysis | | | | | | ([facility]); Hyperkalemia; | | | | | | Acute on chronic | | | | | | respiratory failure | | | | | | with hypoxia and | | | | | | hypercapnia ([facility]); | | | | | | Acute respiratory | | | | | | failure with hypoxia | | | | | | ([facility]); Anemia in | | | | | | ESRD (end-stage | | | | | | renal disease) | | | | | | ([facility]); At high risk | | | | | | for electrolyte | | | | | | imbalance; Awaiting | | | | | | organ transplant | | | | | | status; 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 | | | | | | failure ([facility]); | | | | | | Chronic right-sided | | | | | | heart failure ([facility]); | | | | | | 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 | | | | | | ([facility]); ESRD on | | | | | | hemodialysis ([facility]); | | | | | | History [...] | | | | | | function ([facility]); | | | | | | Moderate to severe | | | | | | pulmonary | | | | | | hypertension ([facility]); | | | | | | Low grade fever; | | | | | | Noncompliance of | | | | | | patient with renal | | | | | | dialysis ([facility]); | | | | | | [...] | | | | | | [place] [address] | | | | | | [phone] | | | | | | | [...] Left: | SYNOVIS - | | | [id number] | | 0.8x8cm - [id number]: | | Arm | SYNO | | [...] | | | COVIDIEN | | | [id number] | | | | | -MATT 867 - | | | 3404 / | | | | | COVI | | | | | | | | | | | /[id number] | | | | | | | [...] R?MRN: | | | | | | [id number] | | | [id number] | | | riteri | | | [...] | | | St. | | | [place] | | | y | | | [...] | | | St. | | | [place] | | | y | | | [...] | | | St. | | | [place] | | | y | | | [...] | | | St | | | [place] | | | y | | | [...] St | | | | | | [place] | | | y | | | [...] | | | St. | | | [place] | | | y | | | [...] | | | St. | | | [place] | | | y H. | | [...] | | | St. | | | [place] | | | y H. | | [...] | | | St. | | | [place] | | | y H. | | [...] | | | St. | | | [place] | | | y H. | | [...] | | | St. | | | [place] | | | y H. | | [...] | | | St. | | | [place] | | | y H. 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 | | | [place] | | | y | | | [...] | | | St. | | | [place] | | | y | | | [...] | | | St. | | | [place] | | | y | | | [...] | | | St | | | [place] | | | y | | | [...] St | | | | | | [place] | | | y | | | [...] | | | St. | | | [place] | | | y | | | [...] | | | St. | | | [place] | | | y H. | | [...] | | | St. | | | [place] | | | y H. | | [...] | | | St. | | | [place] | | | y H. | | [...] | | | St. | | | [place] | | | y H. | | [...] | | | St. | | | [place] | | | y H. | | [...] | | | St. | | | [place] | | | y H. | | [...] | | | St. | | | [place] | | | y H. | | [...] | | | MD | | | Fire Hydrant Operator | | | al | | | [...] | | | [id number] | | | [id number] | | | [id number] | | | [...] [facility] | | | | performed at [facility], [address] | | LABORATORY | | | | [address], | | | | | | [place] [address] | | | | + + + + + + + + | Specimen | + + | | + + + + + + + | Performing | Address | City/State/Zipcode | Phone Number | | Organization | | | | + + + + + | [facility] | [address] | [place] [address] | [phone] | + + + + + Magnesium [...] Testing | 1.7 - 2.4 mg/dL | [facility] | | | | performed at [facility], [address] | | LABORATORY | | | | [address], | | | | | | [place] [address] | | | | + + + + + + + + | Specimen | + + | | + + + + + + + | Performing | Address | City/State/Zipcode | Phone Number | | Organization | | | | + + + + + | [facility] | [address] | [place] [address] | [phone] | + + + + + Renal [...] | | | | | performed at [facility], [address] | | | | | | [address] [facility], | | | | | | [place] [address] | | | | + + + + + + + + | Specimen | + + | Blood | + + + + + + + | Performing | Address | City/State/Zipcode | Phone Number | | Organization | | | | + + + + + | [facility] | [address] | [place] [address] | [phone] | + + + + + HEMODIALYSIS [...] [address], | | | | | | [place] [address] | | | | + + + + + + + + | Specimen | + + | Blood | + + + + + + + | Performing | Address | City/State/Zipcode | Phone Number | | Organization | | | | + + + + + | [facility] | [address] | [place] [address] | [phone] | + + + + + Troponin [...] | | | | | | [facility];[address] | | | | | | [facility];[place] [address] | | | | + + + + + + + + | Specimen | + + | Blood | + + + + + + + | Performing | Address | City/State/Zipcode | Phone Number | | Organization | | | | + + + + + | [facility] | [address] | [place] [address] | [phone] | + + + + + CBC [...] | | | | | | at [facility], [address] | | | | | | [employer], | | | | | | [place] [address] | | | | | |Testing performed at [facility], [address] [employer], [place] [address] | | | | | | | | | | + + +---- + + + + + | Specimen | + + | Blood | + + + + + + + | Performing | Address | City/State/Zipcode | Phone Number | | Organization | | | | + + + + + | [facility] | [address] | [place] [address] | [phone] | + + + + + Phosphorus [...] | | | | | [place] [address] | | | | + + + + + + + + | Specimen | + + | Blood | + + + + + + + | Performing | Address | City/State/Zipcode | Phone Number | | Organization | | | | + + + + + | [facility] | [address] | [place] [address] | [phone] | + + + + + Ferritin (01/24/2019 5:53 AM PST) + + + + + + | Component | Value | Ref Range | Performed | Pathologist | | | | | At | Signature | + + + + + + | Ferritin | 805 (H)Comment: Testing | 6 - 170 ng/mL | [facility] | | | | performed at [facility], [address] | | LABORATORY | | | | [address], | | | | | | [place] [address] | | | | + + + + + + + + | Specimen | + + | Blood | + + + + + + + | Performing | Address | City/State/Zipcode | Phone Number | | Organization | | | | + + + + + | [facility] | [address] | [place] [address] | [phone] | + + + + + Creatine [...] Court, | | | | | | [facility] [address] | | | | + + + + + + | CK-MB | 0Comment: Testing | 0 - 3 % | [facility] | | | | performed by [facility], | | LABORATORY | | | | [address] [facility], | | | | | | [facility] [address] | | | | + + + + + + | CK-BB | 0Comment: Testing | 0 % | [facility] | | | | performed by [facility], | | LABORATORY | | | | [address] [facility], | | | | | | [place] [address] | | | | + + + + + + | CK, Total | 156Comment: Testing | 24 - 173 U/L | [facility] | | | | performed at [place], | | LABORATORY | | | | [address], [address], | | | | | | [facility] [address] | | | | + + + [...] | | | | | [place] [address] | | | | + + + + + + + + | Specimen | + + | Blood | + + + + + + + | Performing | Address | City/State/Zipcode | Phone Number | | Organization | | | | + + + + + | [facility] | [address] | [place] [address] | [phone] | + + + + + Basic [...] 4 (L)Comment: GFR <60: | >60 | [facility] | | | GFR | CHRONIC [...] | | | | | | MDRD IDNM traceable | | | | | | equation.Testing | | | | | | performed at [facility], [address] | | | | | | [facility], | | | | | | [place] [address] | | | | + + + + + + + + | Specimen | + + | Blood | + + + + + + + | Performing | Address | City/State/Zipcode | Phone Number | | Organization | | | | + + + + + | [facility] | [address] | [place] [address] | [phone] | + + + + + XR Chest AP Portable (01/24/2019 1:35 AM [facility])Only the most recent of 4 [...] CHEST AP PORTABLE (01/07/2019); CHEST TWO VIEWS 03652 (01/06/2019); | | | FINDINGS: Mild cardiomegaly. [...] PORTABLE (01/07/2019); CHEST | | TWO VIEWS 82731 (01/06/2019); | | | | FINDINGS: | [...] | 0 - 100 pg/mL | [facility] | | | | Testing performed at | | LABORATORY | | | | [facility];[address] | | | | | | [address];[place] [address] | | | | + + + + + + + + | Specimen | + + | Blood | + + + + + + + | Performing | Address | City/State/Zipcode | Phone Number | | Organization | | | | + + + + + | [facility] | [address] | [place] [address] | [phone] | + + + + + Comprehensive [...] | | | | performed at [facility];[address] | | | | | | [facility];[place], [place] | | | | | | [address] | | | | + + + + + + + + | Specimen | + + | Blood | + + + + + + + | Performing | Address | City/State/Zipcode | Phone Number | | Organization | | | | + + + + + | [facility] | [address] | [place] [address] | [phone] | + + + + + XR [...] (01/07/2019); CHEST TWO | | | VIEWS 19568 (01/06/2019); XR CHEST AP PORTABLE (12/13/2018); | [...] CHEST AP PORTABLE (01/07/2019); CHEST TWO VIEWS 34833 (01/06/2019); XR | | CHEST AP PORTABLE [...] | | | | | ONLY, -COMPUTER (148), | | | | | | business editor Daniela Luciano | | | | [...] correct | | | patient, procedure, equipment, business support and site/side marked as | | | [...] space: 6th Puncture method: | | | flrv-irj-achyzx catheter Number of attempts: 1 Drainage amount: 1500 | | | ml Drainage characteristics: clear Patient tolerance: Patient | | | tolerated the procedure well with no immediate complications Chest | | | x-ray performed: yes Chest x-ray interpreted by radiologist. Chest | | | x-ray findings: pleural effusion (improved) | | + + + POC Glucose (01/10/2019 11:54 AM [facility])Only the most recent of 18 results within the time per iod is included. + + + + + + | Component | Value | Ref Range | Performed | Pathologist | | | | | At | Signature | + + + + + + | Glucose, | 124 (H)Comment: Testing | 65 - 99 mg/dL | [facility] | | | POC | performed at [facility];[address] | | LABORATORY | | | | [address];[place] | | | | | | [address] | | | | + + + + + + + + | Specimen | + + | | + + + + + + + | Performing | Address | City/State/Zipcode | Phone Number | | Organization | | | | + + + + + | [facility] | [address] | [place] [address] | [phone] | + + + + + XR [...] | | PORTABLE (01/07/2019); CHEST TWO VIEWS 89251 (01/06/2019); XR CHEST AP | | | [...] PORTABLE (01/07/2019); | | CHEST TWO VIEWS 50105 (01/06/2019); XR CHEST AP PORTABLE (12/13/2018); | [...] + + | Performing | Address | City/State[facility] | Phone Number | | Organization [...] adenopathy. Upper Abdomen: The | | | lime kidneys are atrophic. There is a small [...] No adenopathy. | | Upper Abdomen: The lime kidneys are atrophic. There is a small [...] B | NON REACTIVEComment: | NR | [facility] | | | Surface Ag | Testing performed at | | LABORATORY | | | | [facility], [address] | | | | | | [place] | | | | | | [address] | | | | + + + + + + + + | Specimen | + + | Blood | + + + + + + + | Performing | Address | City/State/Zipcode | Phone Number | | Organization | | | | + + + + + | [facility] | [address] | [place] [address] | [phone] | + + + + + Thoracentesis [...] space: 6th Puncture method: | | | cwqv-ywj-ojomqw catheter Needle size: 18 Catheter size: 18 [...] + | Billie Gupta MD 12/14/2018 9:54 [facility] | | | [facility] Hemo-Dialysis Procedure note Pt is seen [...] QB 450 AP | | | -200 Director Telemetry 170 Constitutional: pt appears without distress. on [...] + + | Performing | Address | City/State[facility] | Phone Number | | Organization [...] [facility] | | | Requests | [facility];[address] [place] [address] | | LABORATORY | | | | Blvd;[place] [address] | | | | + + + + + + | RESULT | NO GROWTH 6 DAYS | | [facility] | | | | | | LABORATORY | | + + + + + + | RESULT | Testing performed at | | [facility] | | | | [facility], [address] | | LABORATORY | | | | [address] [place], [place] | | | | | | [address]Ybvoxjq: Testing | | | | | | performed at [facility], [address] | | | | | | [place], [place] | | | | | | [address] | | | | + + + + + + + + | Specimen | + + | Blood - Peripheral | | blood specimen | | (specimen) | + + + + + + + | Performing | Address | City/State/Zipcode | Phone Number | | Organization | | | | + + + + + | [facility] | [address] | [place] [address] | [phone] | + + + + + C-Reactive Protein (12/12/2018 5:02 AM PDT) + + + + + + | Component | Value | Ref Range | Performed | Pathologist | | | | | At | Signature | + + + + + + | CRP | 8.6 (H)Comment: Testing | <0.5 mg/dL | [facility] | | | | performed at [facility], [address] | | LABORATORY | | | | [address], | | | | | | [place] [address] | | | | + + + + + + + + | Specimen | + + | Blood | + + + + + + + | Performing | Address | City/State/Zipcode | Phone Number | | Organization | | | | + + + + + | [facility] | [address] | [place] [address] | [phone] | + + + + + Influenza [...] B | NEGATIVEComment: Testing | NEG | [facility] | | | | performed by Molecular | | LABORATORY | | | | MethodologyTesting | | | | | | performed at [facility];[address] | [address];[place], [place] | | | | | | [address] | | | | + + + + + + + + | Specimen | + + | | + + + + + + + | Performing | Address | City/State/Zipcode | Phone Number | | Organization | | | | + + + + + | [facility] | [address] | [place] [address] | [phone] | + + + + + FLU SWAB COLLECTION (12/11/2018 3:46 PM PDT) + + + + + + | Component | Value | Ref Range | Performed | Pathologist | | | | | At | Signature | + + + + + + | Collection | SPECIMEN RECEIVED IN | | [facility] | | | | LABComment: Testing | | LABORATORY | | | | performed at [facility] | | | | | | [address];[place], [place] | | | | | | [address] | | | | + + + + + + + + | Specimen | + + | Tissue - Entire | | nasopharynx (body | | structure) | + + + + + + + | Performing | Address | City/State/Zipcode | Phone Number | | Organization | | | | + + + + + | [facility] | [address] | [place] [address] | [phone] | + + + + + PTT (12/11/2018 8:06 AM PDT) + + + + + + | Component | Value | Ref Range | Performed | Pathologist | | | | | At | Signature | + + + + + + | PTT | 32Comment: Testing | 23 - 32 seconds | [facility] | | | | performed at [facility];[address] | | LABORATORY | | | | [address];[place], [place] | | | | | | [address] | | | | + + + + + + + + | Specimen | + + | Blood | + + + + + + + | Performing | Address | City/State/Zipcode | Phone Number | | Organization | | | | + + + + + | [facility] | [address] | [place] [address] | [phone] | + + + + + CT [...] | | | | performed at [facility];[address] | | | | | | [address];[place] | | | | | | [address] | | | | + + + + + + + + | Specimen | + + | | + + + + + + + | Performing | Address | City/State/Zipcode | Phone Number | | Organization | | | | + + + + + | [facility] | [address] | [place] [address] | [phone] | + + + + + Lactic [...] | | Serum | performed at [facility];[address] | mmol/L | LABORATORY | | | | [address];[place], [place] | | | | | | [address] | | | | + + + + + + + + | Specimen | + + | Blood | + + + + + + + | Performing | Address | City/State/Zipcode | Phone Number | | Organization | | | | + + + + + | [facility] | [address] | [place] [address] | [phone] | + + + + + Protime INR (12/10/2018 11:02 PM PDT) + + + + + + | Component | Value | Ref Range | Performed | Pathologist | | | | | At | Signature | + + + + + + | INR | 1.3Comment: REFERENCE | | [facility] | | | | RANGE:0.9 - [...] | | | | performed at [facility];[address] | | | | | | [address];[place], [place] | | | | | | [address] | | | | + + + + + + + + | Specimen | + + | Blood | + + + + + + + | Performing | Address | City/State/Zipcode | Phone Number | | Organization | | | | + + + + + | [facility] | [address] | [place] [address] | [phone] | + + + + + from [...] +--------+ +---------+--------+ | MEDICARE | MEDICA | [id number] | 05/05/19 | [phone] | | Medica | | | RE | | 13-Pre | 5 | | re | | | PART A | | sent | | | | | | AND B | | | | | | + +--------+ +--------+ +---------+--------+ | MEDICARE | MEDICA | [id number] | 05/05/19 | [phone] | | Medica | | | RE | | 13-Pre | 5 | | re | | | PART A | | sent | | | | | | AND B | | | | | | + +--------+ +--------+ +---------+--------+ | [employer]AN | MODA | [id number] | | [phone] | | Medica | | MEDICAID HMO | HEALTH | | 019-Pr | 1 | | id | | | MDCD | | esent | | | | | | [place] | | | | | | + +--------+ +--------+ +---------+--------+ | [employer] | MODA | [id number] | | [phone] | | Medica | | MEDICAID HMO [...] [place] | | | 2 (Home) | [address] | + +--------+ +--------+ + + | Dara Weldon | Person | Self [birth year] | [address] | | | al/Fam | | 1994 | [phone] | [address] [place], [place] | | | [place] | | | 2 (Home) | [address] | + +--------+ +--------+ + + | Cory Weldon | Person | Father | [birth year] | [address] | | | al/Fam | | 1971 | [phone] | [place] [address] | | | [place] | | | 9 (Home) | | + +--------+ +--------+ + + Advance Directives + + + + + | Type | Date Recorded | Patient | Explanation | | | | Phy Therapist | | + + + + + | Power of | 11/06/2018 7:27 | | | | Well Blower | PM | | | + + [...]
--- OUTSIDE RECORDS SUMMARY | ~2019-03-08 | XMS | Encounter Summary ---
Demographics + + + | Address | [address] | | | [place] [address] | + + + | Home Phone [...] + + + | Author | [facility] | | | and [place] | + + + | Organization | [facility] | | | and [place] | [...] Team Providers + +------+ + | Care Credit Manager Name | Role | Phone | [...] | stage renal | [address] | [address] [place] [address] | | | | | disease) | Shun Griffin | [place] | | | | | ([facility]) | [address] | [address] | | | | | Anemia in | [place], [place] | [place] | | | | | ESRD | [address] | [address] Phone: | | | | | (end-stage | Phone: | [phone] | | | | | renal | [phone] | Fax: | | | | | disease) | Fax: | [phone] | | | | | ([facility]) | [phone] | | | | | | Procedures [...] + + + + | 10/31/ | Off-Site | [facility] [place] | Jorje Camp | ESRD (end stage | | 2017 | Visit | NEPHROLOGY [address] | M, DO [address] | renal disease) ([facility]) | | | | [address] | [place] | (Primary Dx) | | | | [place], [place] | [place], [place] | | | | | [address] | [address] | | | | | [phone] | | | +--------+ + + + [...] documented as of this encounter Progress Notes Jorje Camp DO - 10/31/2016 10:00 AM PDTNEPHROLOGY (Dara left AMA, before I could see her. She apparently is doing this on a regular basis, per the Cy Nurse). documented in thi s encounter Plan of Treatment +--------+---------+ + + + | Date | Type | Specialty | Care Team | Description | +--------+---------+ + + + | 04/18/ | Office | Pulmonology | Denny Alexander | | | 2019 | Visit | | Deny Briggs MD [address] | | | | | | [address] | | | | | | [place] [address] | | | | | | [phone] | | | | | | | | +--------+---------+ + + + documented as of this encounter Visit Diagnoses + + | Diagnosis | + + | ESRD (end stage renal disease) (HCC) - Primary End stage renal disease | + + documented in this encounter"
--- OUTSIDE RECORDS SUMMARY | ~2019-03-08 | XMS | Encounter Summary ---
Demographics + + + | Address | [address] | | | [place] [address] | + + + | Home Phone | | + + + | Preferred Language | Unknown | + + + | Marital Status | Single | + + + | Voodoo Affiliation | Unknown | + + + | Race | Unknown | + + + | Ethnic Group | Unknown | + + + Author + + + | Author | [facility] | | | and [place]ana | + + + | Organization | [facility] | | [...] Team Providers + +------+ + | Care Conveyor Maintenance Mechanic Name | Role | Phone | [...] | stage renal | [address] | [address] [place] [address] | | | | | disease) | Shun Griffin | Jaciel Gotti | | | | | ([facility]) | [address] | [address] | | | | | Anemia in | [place], [place] | [place] | | | | | ESRD | [address] | [address] Phone: | | | | | (end-stage | Phone: | [phone] | | | | | renal | [phone] | Fax: | | | | | disease) | Fax: | [phone] | | | | | ([facility]) | [phone] | | | | | | Procedures | | | | | | | CO OFFICE | | | | | | [...] | 01/02/ | Off-Site | [facility] [place] | Jorje Camp | ESRD (end stage | | 2017 | Visit | NEPHROLOGY [address] | M, DO [address] | renal disease) ([facility]) | | | | [address] | [place], [address] | (Primary Dx) | | | | [place], [place] | [place], [place] | | | | | [address] | [address] | | | | | [phone] | | | +--------+ + + + [...] documented in this encounter Progress Notes Jorje Camp, DO - 01/02/2017 10:00 AM PDT Subjective: [...] parathyroidectomy she should let myself or the recharger no. She will be rechecked in 2 weeks. : [place] documented in t his encounter Plan of Treatment +--------+---------+ + + + | Date | Type | Specialty | Care Team | Description | +--------+---------+ + + + | 04/18/ | Office | Pulmonology | Denny Alexander | | | 2019 | Visit | | Deny Briggs MD [address] | | | | | [address] | | | | | | [place] [address] | | | | | | [phone] | | | | | | | | +--------+---------+ + + + documented as of this encounter Visit Diagnoses + + | Diagnosis | + + | ESRD (end stage renal disease) (HCC) - Primary End stage renal disease | + + documented in this encounter"
--- OUTSIDE RECORDS SUMMARY | ~2019-03-08 | XMS | Encounter Summary ---
Demographics + + + | Address | [address] | | | [place] [address] | + + + | Home Phone [...] Author | [facility] | | | and [place] | + + + | Organization | [facility] | | | [...] Team Providers + +------+ + | Care Personnel Research Scientist Name | Role | Phone | [...] + + | 11/12/ | Telephone | [facility] | Silvia Rabago | DME (carlie, cmn, | | 2018 | | [address] | ABRIL Hernandez | [facility]) | | | | [place] | | | | | | [address] | | | | | | [phone] | | | +--------+ + + + [...] | | | | | [place] [address] | | | | | | [phone] | | | | | | | | +--------+---------+ + + + documented as of this encounter Visit Diagnoses Not on filedocumented in this encounter"
--- OUTSIDE RECORDS SUMMARY | ~2019-03-08 | XMS | Encounter Summary ---
Demographics + + + | Address | [address] | | | [place] [address] | + + + | Home Phone | | + + + | Preferred Language | Unknown | + + + | Marital Status | Single | + + + | Sikhism Affiliation | Unknown | + + + | Race | Unknown | + + + | Ethnic Group | Unknown | + + + Author + + + | Author | [facility] | | | and [place] | + + + | Organization | [facility] | | | and [place]ana | [...] Team Providers + +------+ + | Care Chucking Machine Set Up Operator Tool Name | Role | Phone | + +------+ + PCP | Unavailable | + +------+ + Encounter Details +--------+ + + + + | Date | Type | Department | Care Team | Description | +--------+ + + + + | 02/12/ | Hospital | [facility] | Nereida Roberson | | | 2008 | Encounter | HOSPITAL EMERGENCY | MD [address] | | | | | [place] [address] [place] | [address] [place], [place] | [place] [address] | | | | | [address] | [phone] | | | | | [phone] | | | +--------+ + + + [...] [address] | | | | | | [place] [address] | | | | | | [phone] | | | | | | | | +--------+---------+ + + + documented as of this encounter Visit Diagnoses Not on filedocumented in this encounter"
--- OUTSIDE RECORDS SUMMARY | ~2019-03-08 | XMS | Encounter Summary ---
Demographics + + + | Address | [address] | | | [place] [address] | + + + | Home Phone | | + + + | Preferred Language | Unknown | + + + | Marital Status | Single | + + + | Sikh Affiliation | Unknown | + + + | Race | Unknown | + + + | Ethnic Group | Unknown | + + + Author + + + | Author | [facility] | | | and [place] | + + + | Organization | [facility] | | | and [...] Team Providers + +------+ + | Care Salt Maker Name | Role | Phone | + +------+ + | Jonathan Alonso MD | PCP | | + +------+ + Reason for Visit + + + | Reason | Comments | + + + | Chest Pain | | + + + Encounter Details +--------+ + + + + | Date | Type | Department | Care Team | Description | +--------+ + + + + | 12/10/ | Hospital | [facility] | Rayray Powers MD | Sepsis, due to | | 2019 - | Encounter | [facility] | [address] | unspecified | | | | CARE [address]LO[address] | [place], [place] | organism, | | 12/14/ | [address] | [address] | unspecified whether | | 2019 | | [place], [place] | [phone] | acute organ | | | | [address] | | dysfunction present | | | | [phone] | Lee Harris MD | ([facility]) (Primary Dx); | | | | | [address] | Pneumonia of right | | | | | [place] [address] | lower lobe due to | | | | | [phone] | infectious organism | | | | | | ([facility]); Hypoxia; | | | | | wJ Neri, DO [address] | Hypervolemia, | | | | | [address] | unspecified | | | | | [place] [address] | hypervolemia type; | | | | | [phone] | ESRD on dialysis | | | | | | ([facility]); Hyperkalemia; | | | | | | Acute on chronic | | | | | | respiratory failure | | | | | | with hypoxia and | | | | | | hypercapnia ([facility]); | | | | | | Acute respiratory | | | | | | failure with hypoxia | | | | | | ([facility]); Anemia in | | | | | | ESRD (end-stage | | | | | | renal disease) | | | | | | ([facility]); At high risk | | | | | | for electrolyte | | | | | | imbalance; Awaiting | | | | | | organ transplant | | | | | | status; 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 | | | | | | failure ([facility]); | | | | | | Chronic right-sided | | | | | | heart failure ([facility]); | | | | | | 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 | | | | | | ([facility]); ESRD on | | | | | | hemodialysis ([facility]); | | | | | | History [...] | | | | | | function ([facility]); | | | | | | Moderate to severe | | | | | | pulmonary | | | | | | hypertension ([facility]); | | | | | | Low grade fever; | | | | | | Noncompliance of | | | | | | patient with renal | | | | | | dialysis ([facility]); | | | | | | Pleural effusion, | | | | | | right; Gram-positive | | | | | | bacteremia | +--------+ + + + + Social [...] + | Blood Pressure | 117/72 | 12/14/2018 11:20 AM | | | | | PDT | | + + + + + | Pulse | 79 | 12/14/2018 11:20 AM | | | | | PDT | | + + + + + | Temperature | 36.8 C (98.2 F) | 12/14/2018 11:20 AM | | | | | PDT | | + + + + + | Respiratory Rate | 18 | 12/14/2018 11:20 AM | | | | | PDT | | + + + + + | Oxygen Saturation | 99% | 12/14/2018 11:20 AM | | | | | PDT | | + + + + + | Inhaled Oxygen | - | - | | | Concentration | | | | + + + + + | Weight | 63.5 kg (139 lb 15.9 | 12/13/2018 7:44 PM | | | | oz) | PDT | | + + + + + | Height | 170.2 cm (5' 7") | 12/12/2018 2:02 PM | | | | | PDT | | + + + + + | Body Mass Index | 21.93 | 12/12/2018 2:02 PM | | | | | PDT [...] documented as of this encounter Discharge Summaries Jw Neri DO - 12/31/2018 5:05 AM PDTFormatting of this note might be different from pierre coleman. [facility] Service: Hospitalist Physician Discharge Summary Patient ID: Dara Weldon 1995 23 y.o. Admit date: 12/10/2018 Discharge date: 12/14/2018 Admitting Physician: Lee Mckeon Ma, MD Discharge Physician: Jw Neri DO Consultants: Treatment Team: Cliff Duarte MD; Reno Dutta MD Primary Discharge Diagnoses: Principal Problem: Acute respiratory failure with hypoxia Active Problems: ESRD on hemodialysis Pericardial effusion without cardiac tamponade Bacteremia due to Gram-positive bacteria History of Henoch-Schonlein purpura Anemia in ESRD (end-stage renal disease) Secondary hyperparathyroidism Chronic combined systolic and diastolic heart failure At high risk for electrolyte imbalance Chronic right-sided heart failure Dilated cardiomyopathy Hyperphosphatemia Moderate to severe pulmonary hypertension Non-compliance Pleural effusion, not elsewhere classified Troponin I above reference range Pulmonary edema with congestive heart failure with reduced left ventricular function HPI Pt is a 23 y/o female with h/o ESRD, combined systolic/diastolic CHF, HTN, and obesity here with acute on chronic diastolic/systolic CHF and acute respiratory failure due to non-compl iance to HD. Pt states that he last dialysis session was 12/04 and missed the next two sess ions due to fatigue. She states that he was too tired to go to dialysis and stayed at home. She has become more short of breath with increased peripheral edema over last few days. S he denied any sick contacts, rash, recent travel, drug or alcohol abuse, or MARSHALL Hospital Course: Patient was admitted to the Hospitalist service. Nephrology and ID were consulted. Patient was placed on zosyn and zithromax. Initial blood cultures were shown to be positive x 1/2. D ialysis was preformed under the direction of Nephrology. Vancomycin was started. Dr. Thacker evaluated the patient was suspicious that the blood culture was a contaminant. Antibiotics w ere discontinued and patient was monitored. Patient was found to be stable and when ready lux hamilton was discharged home. Discussion was had with patient about treatment, and need for fol low up. She demonstrated understanding and was subsequently discharged home. Past Medical History: Past Medical History: Diagnosis Date Asthma Bacteremia due to Gram-positive bacteria 12/12/2018 Clotted dialysis access ([facility]) 2014 Congestive heart failure ([facility]) ESRD (end stage renal disease) ([facility]) HSP (Henoch-Schonlein purpura) nephritis ([facility]) 1987 Hypertension Pericardial effusion without cardiac tamponade 11/07/2018 Past Surgical History: Procedure Laterality Date ABDOMEN SURGERY AV FISTULA REPAIR 02/24/2014 LEFT Radical Cephalic Fistula Creation; Laterality: Left; Surgeon: Blake Chavarria MD ; Location: [facility] MAIN OR AV FISTULA REPAIR Left 03/07/2014 Procedure: AV FISTULA - GRAFT REPAIR/REVISION; Surgeon: Rik Simon MD; Location: [facility] OR; Service: Vascular; Laterality: Left; biopsy of kidney age 10 DIALYSIS FISTULA CREATION 04/08/2014 Procedure: DIALYSIS CATHETER - INSERTION; Surgeon: Rik Simon MD; Location: [facility] OR ; Service: Vascular; Laterality: N/A; tunneled catheter.br hemodialysis catheter KIDNEY BIOPSY Left 2003 OTHER SURGICAL HISTORY LAPAROSCOPIC PERITONEAL DIALYSIS CATHETER INSERTION - x2 OTHER SURGICAL HISTORY Right 07/2013 LAPAROSCOPIC PERITONEAL DIALYSIS CATHETER INSERTION - current dialysis access MWF dialysis OTHER SURGICAL HISTORY Left 06/24/2014 SUPERFICIALIZATION OF AV FISTULA - Procedure: AV FISTULA - SUPERFICIALIZATION; Surgeon: Emanuel Simon MD; Location: [facility] MAIN OR; Service: Vascular; Laterality: Left; OTHER SURGICAL HISTORY Left 04/08/2014 AV FISTULA PLACEMENT - Procedure: AV FISTULA; Surgeon: Rik Simon MD; Location: [facility] OR; Service: Vascular; Laterality: Left; cephalic OTHER SURGICAL HISTORY Left 03/07/2014 DECLOT GRAFT - Procedure: GRAFT - DECLOT; Surgeon: Rik Simon MD; Location: [facility] MAIN OR ; Service: Vascular; Laterality: Left; peritoneal catheter Discharged Condition: Stable for discharge as stated above. Discharge Vitals: Vitals: 12/14/18 1045 12/14/18 1100 12/14/18 1110 12/14/18 1120 BP: 120/74 118/77 117/76 117/72 Pulse: 76 79 79 79 Resp: 18 18 18 18 Temp: 36.8 C (98.2 F) TempSrc: Oral SpO2: 99% 99% 99% 99% Weight: Height: Discharge Exam: General Appearance: A & O x 3, no distress, appears stated age Head: Normocephalic, without obvious abnormality, atraumatic Eyes: PERRL, conjunctiva/corneas clear, EOM's intact. Ears: Normal external ear canals, no otorrhea Nose: Nares normal, no drainage or sinus tenderness Throat: Lips, mucosa, and tongue normal; gums normal Neck: Supple, symmetrical, trachea; no carotid bruit or JVD Back: Symmetric, no curvature, ROM normal, no CVA tenderness Lungs: Clear to auscultation bilaterally, respirations unlabored Chest Wall: No tenderness or deformity Heart: Regular rate and rhythm, S1 and S2 normal, no murmur, rub or gallop Abdomen: Soft, non-tender, bowel sounds active all four quadrants, no masses, no organo megaly Genitalia: Deferred Rectal: Deferred Extremities: Upper extremities no clubbing/ cyanosis/ erythema Lower extremities atraum atic, no cyanosis or edema Pulses: 2+ and symmetric all extremities Skin: Skin warm, texture and turgor normal, no rashes or lesions Lymph nodes: No gross lymphadenopathy. Neurologic: Psychiatric: CNII-XII intact, normal strength, sensation normal Affect/ mood normal, behavior and judgement normal LABS: No results for input(s): WBC, HGB, HCT, PLT, MONOPCT in the last 168 hours. Invalid input(s): NEUTOPHILPCT, EOSPCT No results for input(s): NA, K, CL, CO2, BUN, CREATININE, CALCIUM, LABALBU, BILITOT, ALKPHO S, ALT, AST, GLUCOSE in the last 168 hours. Invalid input(s): PROT Phosphorus: No results for input(s): PHOS in the last 168 hours. No results for input(s): MG in the last 168 hours. No results for input(s): AMYLASE in the last 168 hours. No results for input(s): LIPASE in the last 168 hours. No results for input(s): PHART, PO2ART, MWB0ACP, E5DQJSRI, BEART in the last 168 hours. No results for input(s): APTT, INR, PTT in the last 168 hours. No results for input(s): TSH in the last 168 hours. Invalid input(s): T3FREE, FREET4 No results for input(s): TROPONINT in the last 168 hours. Invalid input(s): CKTOTAL, TROPONINI, CKMBINDEX Disposition: home No discharge procedures on file. Follow up: Jonathan Alonso MD [address] [facility] [address] Schedule an appointment as soon as possible for a visit hospital follow up Jorje Stewart, [address] [facility] [place], [place] [address] [facility] [address] Schedule an appointment as soon as possible for a visit follow up Jonathan Alonso MD Discharge Medications Changed Medications Details doxercalciferol 2 mcg/mL injection Inject 0.5 mLs into the vein Three times a week. Per dialysis clinic protocol What changed: how much to take additional instructions aka: HECTOROL Unchanged Medications Details albuterol-ipratropium 2.5-0.5 mg/3 mL Soln Take 3 mLs by nebulization. clopidogrel 75 mg tablet Take 1 tablet by mouth Daily. aka: PLAVIX EPOGEN 20,000 units/mL injection Generic drug: epoetin jenna Inject 0.4 mLs (8,000 Units total) into the skin every 7 days. losartan 25 mg tablet Take 1 tablet by mouth Daily. aka: COZAAR metoprolol succinate 50 mg 24 hr tablet Take 1 tablet by mouth daily. aka: TOPROL-XL ondansetron 4 mg tablet Take 4 mg [...] for Nausea or Vomiting (non-resposive to zofran). aka: PHENERGAN sevelamer carbonate 800 mg tablet Take 2 tablets by mouth 3 (three) times daily with meals and 2 tablet with snacks twice da kamron aka: RENVELA VENOFER 20 mg/mL injection Generic drug: iron sucrose Inject 2.5 mLs into the vein Once a week. Jw Neri DO 12/31/2018 5:05 Discharge took more than 35 minutes, to include final examination, discussion of admission, and preparation of prescriptions, instructions for ongoing care, follow up and dictation of summary. documented in this encoun ter Discharge Instructions AttachmentsThe following attachments cannot be sent through Care Everywhere.Leti Whitt (Adult) (Pashto)documented in this encounter Medications at Time of [...] nebulization. | | | | | | m 2.5-0.5 mg/3 mL | [...] | | | | | renal disease) ([facility]) | protocol | | | | | [...] 2.5 mLs into | | 0 | 07//20 | | | (VENOFER) 20 mg/mL | [...] tablet by | 30 | 1 | 11/10/19 | | | 25 mg tablet | mouth [...] documented as of this encounter Progress Notes Reno Yanes MD - 12/14/2018 10:16 AM PDT [facility] Service: Infectious Diseases Progress Note Hospital Day: LOS: 3 days Post-Op Day: * No surgery found * CC: Follow up on bacteremia. SUBJECTIVE/OVERNIGHT EVENTS Denies new concerns and denies side effects. No acute events over the last 24 hours. Awaiti ng discharge planning. Hemodialysis this morning. After that the patient will be ready for discharge. Hemodynami cortez stable, afebrile. Intake/Output Summary (Last 24 hours) at 12/14/2018 1016 Last data filed at 12/13/20181945 Gross per 24 hour Intake Output 1525 ml Net -1525 ml REVIEW OF SYSTEMS . GI: denies diarrhea. Skin: denies skin rash. Constitutional: denies fever and chills. Respi ratory: denies difficulty breathing. Other systems were negative. MEDICATIONS: Scheduled Meds: clopidogrel 75 mg Oral Daily epoetin jenna-epbx 10,000 Units Intravenous With each dialysis heparin 5,000 Units Subcutaneous 2 times per day losartan 25 mg Oral Daily metoprolol succinate 50 mg Oral Daily pantoprazole 40 mg Oral QAM AC sevelamer carbonate 1,600 mg Oral TID WC Continuous Infusions: heparin 400 Units/hr (12/12/18 08) PRN Meds:.acetaminophen, albumin, albuterol-ipratropium, nitroglycerin, ondansetron, oxyCOD ONE, sodium chloride 0.9%, sodium chloride 0.9% PHYSICAL EXAM Vital Signs: BP 113/67 | Pulse 79 | Temp 36.5 C (97.7 F) (Axillary) | Resp 18 | Ht 1.702 m (5' 7 ") | Wt 63.5 kg (139 lb 15.9 oz) | LMP (LMP Unknown) | SpO2 96% | ? No | BMI 21.93 kg/m Focused exam shows: General exam: No distress, cooperative with exam. HEENT: sclera non-icteric, no visible oral thrush Cardiovascular: regular rate and rhythm Lungs: no tachypnea, clear breath sounds. Mildly decreased at bases Abdomen: no distension, bowel sounds present Extremities/MSK: No edema, no joint effusions Skin: No lesions, normal turgor Neurologic: Awake, cranial nerves intact. Follows commands. Venous access: PIV. LABS: All labs were reviewed. Recent Results (from the past 24 hour(s)) Basic Metabolic Panel Result Value Ref Range Na 137 135 - 145 mmol/L K 4.7 3.5 - 4.9 mmol/L Cl 99 99 - 109 mmol/L CO2 27 23 - 32 mmol/L Anion Gap 16 5 - 20 mmol/L Glucose 89 65 - 99 mg/dL BUN 26 (H) 8 - 25 mg/dL Creatinine 7.0 (H) 0.50 - 1.00 mg/dL BUN/Creatinine Ratio 4 Calcium 9.4 8.5 - 10.5 mg/dL Estimated GFR 7 (L) >60 mL/min/1.73m2 CBC with Differential Result Value Ref Range WBC 7.00 3.80 - 11.00 K/uL RBC 2.95 (L) 3.70 - 5.10 M/uL Hemoglobin 10.7 (L) 11.3 - 15.5 g/dL Hematocrit 32.1 (L) 34.0 - 46.0 % MCV 108.7 (H) 80.0 - 100.0 fl MCH 36.1 (H) 27.0 - 34.0 pg MCHC 33.2 32.0 - 35.5 g/dL RDW-SD 64.3 (H) 37 - 53 fl Platelet Count 200 150 - 400 K/uL MPV 9.5 fl Diff Type AUTOMATED % Neutrophils 46.98 % % Lymphocytes 27.60 % Monocyte % 8.75 % Eosinophils % 15.77 % Basophils % 0.90 % Neutrophils, Absolute 3.29 1.90 - 7.40 K/uL Absolute Lymphocytes 1.93 1.00 - 3.90 K/uL Absolute Monocytes 0.61 0.00 - 0.80 K/uL Eosinophils, Absolute 1.10 (H) 0.00 - 0.50 K/uL Basophils, Absolute 0.06 0.00 - 0.10 K/uL RBC Morphology 2+ Microbiology Results (Last 14 Days by Collected Date with Culture/Sensitivity) Procedure Component Value Units Date/Time Culture, Blood [[id number]] Collected: 12/12/18 1943 Order Status: Canceled Lab Status: No result Specimen: Peripheral Blood Culture, Body Fluid Sterile [[id number]] Order Status: No result Lab Status: No result Specimen: Body Fluid from Pleural Fluid, Right Culture, Blood [[id number]] Collected: 12/12/18 0502 Order Status: Completed Lab Status: Preliminary result Updated: 12/13/18 1324 Specimen: Peripheral Blood Special Requests RWRIST Special Requests Testing performed at [facility] [place] [address] RESULT NO GROWTH AT THIS TIME RESULT Testing performed at [facility], [address] [place] [address] Comment: Testing performed at [facility], [address] [place] [address] Influenza A and B RNA, NAAT [[id number]] Collected: 12/11/18 1556 Order Status: Completed Lab Status: Final result Updated: 12/11/18 1619 Influenza A NEGATIVE Influenza B NEGATIVE Comment: Testing performed by [employer] Testing performed at [facility];[address] [place] [address] Flu Swab Collection [[id number]] Collected: 12/11/18 1546 Order Status: Completed Lab Status: Final result Updated: 12/11/18 1549 Specimen: Tissue from Nasopharynx Collection SPECIMEN RECEIVED IN LAB Comment: Testing performed at [facility];[address] [place] [address] Culture, Blood [[id number]] Collected: 12/11/18 0615 Order Status: Completed Lab Status: Preliminary result Updated: 12/12/18 1134 Specimen: Peripheral Blood Special Requests RAC Special Requests Testing performed at [facility];[address] [place] [address] RESULT NO GROWTH AT THIS TIME RESULT Testing performed at [facility], [address] [place] [address] Comment: Testing performed at [facility], [address] [place] [address] Culture, Blood [[id number]] (Abnormal) Collected: 12/10/18 2343 Order Status: Completed Lab Status: Final result Updated: 12/13/18 1009 Specimen: Blood from Line Gram Stain Result -- GRAM POSITIVE COCCI IN CLUSTERS SEEN IN AEROBIC BOTTLE SEEN IN ANAEROBIC BOTTLE Gram Stain Result -- SMEAR RESULTS CALLED TO AND READ BACK BY: Brigitte CARTER @ 4689 12/11/18 CDS RESULT STAPHYLOCOCCUS SPECIES, COAGULASE NEGATIVE RESULT GROWTH IN TWO OF TWO BOTTLES RESULT -- TIME TO DETECTION: 0.69 DAYS RESULT POSSIBLE CONTAMINANT, CLINICAL CORRELATION REQUIRED. RESULT Testing performed at [facility], [address] [place] [address] Comment: Testing performed at [facility], [address] [place] [address] Microbiology Results (72 hrs) Procedure Component Value Units Date/Time Culture, Blood [[id number]] Collected: 12/12/18 0502 Order Status: Completed Lab Status: Preliminary result Updated: 12/13/18 1324 Specimen: Peripheral Blood Special Requests RWRIST Special Requests Testing performed at [facility];[address] [place] [address] RESULT NO GROWTH AT THIS TIME RESULT Testing performed at [facility], [address] [place] [address] Comment: Testing performed at [facility], [address] [place] [address] Influenza A and B RNA, NAAT [[id number]] Collected: 12/11/18 1556 Order Status: Completed Lab Status: Final result Updated: 12/11/18 1619 Influenza A NEGATIVE Influenza B NEGATIVE Comment: Testing performed by Molecular Methodology Testing performed at [facility];[address] [place] [address] Flu Swab Collection [[id number]] Collected: 12/11/18 1546 Order Status: Completed Lab Status: Final result Updated: 12/11/18 1549 Specimen: Tissue from Nasopharynx Collection SPECIMEN RECEIVED IN LAB Comment: Testing performed at [facility];[address] [place] [address];[place] [address] IMAGING: No new images for review today. ASSESSMENT & PLAN The patient is a 23 y.o.-year-old female with the following problems: Active Hospital Problems Diagnosis Date Noted Bacteremia due to Gram-positive bacteria 12/12/2018 Priority: High Pericardial effusion without cardiac tamponade 11/07/2018 Priority: High ESRD on hemodialysis Priority: High Pulmonary edema with congestive heart failure with reduced left ventricular function 0 11/06/2018 Troponin I above reference range 07/19/2018 Acute respiratory failure with hypoxia 07/18/2018 Chronic right-sided heart failure 07/18/2018 Dilated cardiomyopathy 06/28/2018 Chronic combined systolic and diastolic heart failure 05/27/2018 Moderate to severe pulmonary hypertension 05/27/2018 Hyperphosphatemia 05/27/2018 At high risk for electrolyte imbalance 05/27/2018 Non-compliance 05/26/2018 Pleural effusion, not elsewhere classified 05/26/2018 History of Henoch-Schonlein purpura Anemia in ESRD (end-stage renal disease) Secondary hyperparathyroidism Resolved Hospital Problems No resolved problems to display. Clinically stable from ID standpoint. Continue to monitor off antibiotics. Patient updated on his/her condition today. Discussed with attending provider: Jw Neri DO . Reno Thacker MD, MPH Infectious Diseases 12/14/18 Cliff Pozo MD - 12/13/2018 7:00 PM PDTFormatting of this note might be different from the orig inal. [id number] Hospital Day: LOS: 2 days She had uncomplicated UF today with 1.5 L ultrafiltration. Blood cultures on admission came back as showing coag negative staph (possibly contaminant) . She was seen by Dr. Thacker today. She feels OK for the most part. There are no documented episodes of fever/nausea/vomiting/abdominal pain/shortness of breat h at rest/chest pain/cough. PMH, PSH, Social history reviewed in chart. [...] negative. Examination: Vitals as noted General appearance: Lying in bed with comfortably. Head/Neck: FROM, supple. Facial puffiness noted. JVD +. Lungs: Reduced air entry right lower infrascapular area with fair air entry on the left cortney e. Wheezing noted. CV: RRR, no MRGs; normal carotid upstroke and amplitude without bruits. Systolic/diastolic murmur at the apex. No pericardial rub noted. Abdomen: Soft, non-tender; no masses or HSM Extremities: No peripheral edema or digital cyanosis Skin: no rash, lesions or ulcers Psych: Pleasant demeanor. Neurologic: Alert, awake and oriented to person, place and time. No asterixis. Dialysis access: Left UE AVF with no evidence of malfunction/inflammation. Vital Signs: BP 99/54 | Pulse 75 | Temp 36.7 C (98.1 F) (Oral) | Resp 18 | Ht 1.702 m (5' 7") | Wt 63.5 kg (139 lb 15.9 oz) | LMP (LMP Unknown) | SpO2 96% | ? No | BMI 2 1.93 kg/m Data evaluation: Lab Results Component Value Date BUN 17 12/13/2018 EGFR 11 (L) 12/13/2018 NA 136 12/13/2018 K 4.6 12/13/2018 CL 98 (L) 12/13/2018 CO2 31 12/13/2018 PHOS 8.9 (H) 12/10/2018 MG 2.2 12/10/2018 HGB 9.8 (L) 12/12/2018 Lab Results Component Value Date ANIONGAP 12 12/13/2018 Lab Results Component Value Date BNP 1,151.26 (H) 10/17/2018 BNP 1,153.92 (H) 05/27/2018 BNP 1,728.24 (H) 05/26/2018 Lab Results Component Value Date CRP 8.6 (H) 12/12/2018 CRP 5.1 (H) 05/28/2018 Ct Chest Abdomen Pelvis Wo Contrast 12/11/2018 showed large right pleural effusion with comp ressive atelectasis of the adjacent lung. 2. Mohs act attenuation in the left lung as seen on multiple prior studies 2. Mild splenomegaly. 3. Mild ascites. 4. Atrophic kidneys. 5. Tiny punctate nonobstructing left renal calculus. 6. Mild diffuse body wall edema. Xr Chest Ap Portable 12/10/2018 showed moderate right pleural effusion with adjacent sharon sive atelectasis, increased from prior exam. 2. Cardiomegaly. Echocardiogram from 12 June this year showed ejection fraction of 30 to 35% with restrictiv e LV diastolic pattern, moderate mitral regurgitation, severe tricuspid regurgitation and se jaquan pulmonary hypertension. Assessment recommendations and plan: 1. Hypervolemia with congestive heart failure 2. Gram-positive cocci bacteremia from 10 December 3. End-stage renal disease on hemodialysis 4. Nonadherence to dialysis prescription 5. Hyperkalemia, resolved 6. IAG metabolic acidosis, improved 7. Hyperphosphatemia 8. Recurrent right pleural effusion 9. Anemia, chronic renal failure She is hemodynamically stable with no evidence of fever/tachycardia/bradycardia/severe hype rtension or severe hypotension/hypoxia. With dialysis/ultrafiltration hypervolemia has improved although not fully resolved. She had coag negative staph on blood culture (possibly contaminant). Echocardiogram done y showed EF of 40% with no obvious vegetation. She is now off Abx. She is closer to euvolemic state. Hyperkalemia though has resolved. Plan To Dialyze tomorrow per usual prescription using left UE AVF. UF as tolerated (typically over 2 L UF she begins to cramp). If stable to ? Discharge after dialysis tomorrow. To reinforce adherence to low salt t and fluid restriction/dialysis prescription adherence. To use ESTEFANY/Fe use to keep Hb at target range of 10 to 11. I discussed with her the concept of hypervolemia and interaction of BP/volume status/medica tions in preserving homeostasis with ESRD. She should be on a 2 gm Na, 2 gm K, 1 gm PO4, 1 gm/kg protein diet. Please dose all medications for an eGFR of less than 10 ml/min/1.73 m2. NSAIDS/SUAREZ 2 inhibitors should be avoided. Aluminum/magnesium containing antacids and magne sium/phosphate containing enemas should be avoided. Fluid should be restricted to less than 1.5 L in a 24 hr period. Strict I/O should be done. Plan of care was discussed with Dr. Neri today. Cliff Duarte MD 12/13/2018 Portions of my previous notes have been carried over for continuity of chart review/care. She was seen earlier in the day and charting was completed later after rounds. Dictation software, [employer], was used which may contain error for [...] including but not limi wilmer to . clopidogrel 75 mg Oral Daily epoetin jenna-epbx 10,000 Units Intravenous With each dialysis heparin 5,000 Units Subcutaneous 2 times per day losartan 25 mg Oral Daily metoprolol succinate 50 mg Oral Daily pantoprazole 40 mg Oral QAM AC sevelamer carbonate 1,600 mg Oral TID WC heparin 400 Units/hr (12/12/18 0827) Dr. Gupta will assume nephrology care as of 8 PM tonight. Jw Santos, DO - 12/04 2:42 PM PDT [facility] Service: Hospitalist Progress Note Pt: Dara Weldon AGE/SEX: 23 y.o. female : 1995 ROOM: 6612/6612-01 TODAY'S DATE: 12/13/2018 Hospital Day: LOS: 2 days Treatment Team: Cliff Duarte MD; Reno Dutta MD SUBJECTIVE Patient evaluated at bedside. Patient reports that she is feeling well, but that her nausea medication is not working well. Patient denies any CP, SOB, or vomiting. No new complaints otherwise. Scheduled Medications clopidogrel 75 mg Oral Daily epoetin jenna-epbx 10,000 Units Intravenous With each dialysis heparin 5,000 Units Subcutaneous 2 times per day losartan 25 mg Oral Daily metoprolol succinate 50 mg Oral Daily pantoprazole 40 mg Oral QAM AC promethazine 6.25 mg Intravenous Once sevelamer carbonate 1,600 mg Oral TID WC Continuous Infusions heparin 400 Units/hr (12/12/18 08) PRN Medications acetaminophen, albumin, albuterol-ipratropium, nitroglycerin, ondansetron, oxyCODONE, sodiu m chloride 0.9%, sodium chloride 0.9% Allergy: Allergies Allergen Reactions Adhesive & Tape Rash Certain tapes Fentanyl Itching Iodinated Diagnostic Agents Itching Pt c/o face itching during fistulagram Methylphenidate Other (See Comments) Patient says skin was crawling Morphine Itching and Rash Reglan [Metoclopramide] Itching Lisinopril cough OBJECTIVE Vitals: Patient Vitals for the past 24 hrs: BP Temp Temp src Pulse Resp SpO2 Weight 12/13/18 1147 96 % 12/13/18 1122 116/63 36.4 C (97.5 F) Oral 74 17 12/13/18 1100 63.5 kg (139 lb 15.9 oz) 12/13/18 1030 129/75 36.7 C (98.1 F) Oral 77 18 94 % 12/13/18 1020 125/81 72 12/13/18 1000 122/58 69 12/13/18 0945 111/58 72 12/13/18 0930 117/57 71 12/13/18 0915 119/70 77 12/13/18 0900 107/60 65 12/13/18 0845 108/69 73 12/13/18 0830 105/60 77 12/13/18 0815 112/67 85 12/13/18 0800 112/83 62 12/13/18 0745 114/71 83 12/13/18 0730 104/52 72 12/13/18 0715 114/66 72 98 % 12/13/18 0700 109/63 72 98 % 12/13/18 0650 111/68 71 98 % 12/13/18 0635 121/73 36.6 C (97.9 F) Oral 72 18 97 % 12/13/18 0518 99/58 36.6 C (97.8 F) Oral 84 16 92 % 12/12/18 2304 120/69 36.6 C (97.9 F) Oral 70 16 98 % 12/12/18 2028 116/63 36.7 C (98 F) Oral 69 16 94 % 12/12/18 1612 119/68 36.8 C (98.2 F) Oral 82 17 91 % I&O Detailed Table: Intake/Output Summary (Last 24 hours) at 12/13/2018 1442 Last data filed at 12/13/2018 1030 Gross per 24 hour Intake 900 ml Output 1500 ml Net -600 ml Patient Vitals for the past 96 hrs: Weight 12/13/18 1100 63.5 kg (139 lb 15.9 oz) 12/12/18 1402 70.3 kg (155 lb) 12/10/18 2216 70.7 kg (155 lb 13.8 oz) Hemodynamics Last 24hrs: Examination: Constitutional: Oriented to person, place, and time. appears well-developed and well-nouris hed. HEENT: Head: Normocephalic and atraumatic. Nose: Nose normal. Mouth/Throat: Oropharynx is clear and moist. Eyes: Conjunctivae and EOM are normal. Pupils are equal, round, and reactive to light. Righ t eye exhibits no discharge. Left eye exhibits no discharge. No scleral icterus. Neck: Normal range of motion. Neck supple. No JVD present. No tracheal deviation present. N o thyromegaly present. no cervical adenopathy. Cardiovascular: Normal rate, regular rhythm, normal heart sounds with S1 and S2, and intact distal pulses. Exam reveals no gallop and no friction rub. No murmur heard. Pulmonary/Chest: Effort normal and breath sounds normal. No stridor. No respiratory distres s. some wheezes. no rales. exhibits no tenderness. Abdominal: Soft. Bowel sounds are normal. exhibits no distension and no mass. There is no t enderness. There is no rebound and no guarding. Extremities/Musculoskeletal: Normal range of motion.exhibits no tenderness. exhibits no ed ton. Neurological: Alert and oriented to person, place, and time. Has normal reflexes. display s normal reflexes. No cranial nerve deficit. Exhibits normal muscle tone. Coordination norm al. Skin: Skin is warm and dry. No rash noted. No erythema. No pallor. Psychiatric: Has a normal mood and affect. Behavior is normal. Judgment normal. LABS: Recent Results (from the past 24 hour(s)) Basic Metabolic Panel Result Value Ref Range Na 136 135 - 145 mmol/L K 4.6 3.5 - 4.9 mmol/L Cl 98 (L) 99 - 109 mmol/L CO2 31 23 - 32 mmol/L Anion Gap 12 5 - 20 mmol/L Glucose 84 65 - 99 mg/dL BUN 17 8 - 25 mg/dL Creatinine 4.9 (H) 0.50 - 1.00 mg/dL BUN/Creatinine Ratio 3 Calcium 9.5 8.5 - 10.5 mg/dL Estimated GFR 11 (L) >60 mL/min/1.73m2 Diagnostic: Ct Chest Abdomen Pelvis Wo Contrast Result Date: 12/11/2018 CT CHEST ABDOMEN AND PELVIS WITHOUT CONTRAST CLINICAL INFORMATION: Sepsis. Chest pain, raul rtness of breath, and cough. COMPARISON: XR CHEST AP PORTABLE (12/10/2018); CT CHEST WO CONTR AST (07/19/2018); CT CHEST WO CONTRAST (05/26/2018); PROCEDURE: Axial images through the chest , abdomen and pelvis. Multiplanar reconstructions. At least one of the following CT dose opt imization techniques were used: Automated exposure control; Adjustment of mA and/or kV accor ding to patient size; Use of iterative reconstruction technique. FINDINGS: CHEST Lungs, Pleu ra and Airways: There is a large right-sided pleural effusion with compressive atelectasis o f the adjacent lung. Again noted is mosaic attenuation of the left lung as seen on multiple prior studies, which may be due to air trapping, underlying emphysema or edema. Central ai rways are patent. Mediastinum: No significant pericardial, great vessel or esophageal abnorm ality. No mediastinal mass. Lymph Nodes: No adenopathy. ABDOMEN Liver and Biliary: Solid org an evaluation suboptimal without contrast. No visible abnormality in the liver or gallbladde r. Pancreas, Spleen and Adrenals: There is mild splenomegaly measuring up to 15 cm. No sign ificant adrenal or pancreatic abnormality. Kidneys: Bilateral atrophic kidneys. No hydronep hrosis. Tiny punctate lower pole left renal calculus. ABDOMEN AND PELVIS Bowel: No small indira wel or colonic dilation or adjacent inflammation. No appendiceal dilation or inflammation. V essels: Abdominal aorta normal in caliber. No aneurysm. Veins not assessed without contrast. Lymph Nodes: No adenopathy. Peritoneum and Retroperitoneum: Mild pelvic and perihepatic asc ites. No free air. PELVIS Genitourinary: Distal ureters and bladder appear normal. No pelvi c masses. BODY WALL Soft Tissues: Mild diffuse body wall edema. Bones: No acute fracture or vertebral end plate destruction. No lytic or blastic lesion.Diffuse mild increased density o f the visualized osseous structures may be related to underlying renal osteodystrophy. IMPRESSION: 1. Large right pleural effusion with compressive atelectasis of the adjacent l sebastián. 2. Mohs act attenuation in the left lung as seen on multiple prior studies which may b e related to underlying air trapping, emphysema or edema. 2. Mild splenomegaly. 3. Mild as cites. 4. Atrophic kidneys. 5. Tiny punctate nonobstructing left renal calculus. 6. Mild diffuse body wall edema. Signed by: Eliza Glass Sadaf Sign Date/Time: 12/11/2018 2:45 AM Xr Chest Ap Portable Result Date: 12/10/2018 CHEST PORTABLE ONE VIEW CLINICAL INFORMATION: Chest pain. COMPARISON: XR CHEST AP PORTABLE (11/07/2018); US GUIDED THORACENTESIS WO CHEST TUBE (11/07/2018); XR CHEST PA AND LATERAL ( 019); CT CHEST WITH CONTRAST (11/06/2018); FINDINGS: Dense opacification of the right lung bas e. Poorly defined opacity in the right lung base, likely representing atelectasis. Left rose ng is clear. Blunting of the right costophrenic angle. No pneumothorax. Cardiac silhouette is enlarged. IMPRESSION: 1. Moderate right pleural effusion with adjacent compressive atelectasis, incre ased from prior exam. 2. Cardiomegaly. Signed by: Eliza Lewis John Sign Date/Time: 9 11:50 PM Us Guided Thoracentesis Wo Chest Tube Result Date: 12/12/2018 INTRAPROCEDURAL ULTRASOUND GUIDANCE CLINICAL INFORMATION: Sonography was utilized for purpo ses of procedural guidance. This is a non-diagnostic study done for hospital documentation p urposes. COMPARISON: CT CHEST ABDOMEN PELVIS WO CONTRAST (12/11/2018); XR CHEST AP PORTABLE ( 12/10/2018); XR CHEST AP PORTABLE (11/07/2018); PROCEDURE: Real time ultrasound for procedural or intraoperative guidance. FINDINGS: Limited images of the right chest for purposes of proc edural ultrasound guidance. A right pleural effusion was identified prior to right thoracent esis performed by LUX Andre. IMPRESSION: Documentation of intra procedural ultrasound guidance. See procedure note for details. Signed by: Eliza Echols Julie Sign Date/Time: 12/12/2018 5:27 PM PROBLEM LIST Principal Problem: Acute respiratory failure with hypoxia Active Problems: ESRD on hemodialysis Pericardial effusion without cardiac tamponade Bacteremia due to Gram-positive bacteria History of Henoch-Schonlein purpura Anemia in ESRD (end-stage renal disease) Secondary hyperparathyroidism Chronic combined systolic and diastolic heart failure At high risk for electrolyte imbalance Chronic right-sided heart failure Dilated cardiomyopathy Hyperphosphatemia Moderate to severe pulmonary hypertension Non-compliance Pleural effusion, not elsewhere classified Troponin I above reference range Pulmonary edema with congestive heart failure with reduced left ventricular function ASSESSMENT & PLAN Acute Respiratory Failure - secondary to CHF exacerbation from missed dialysis sessions. A lso pleural effusion. S/p thoracentesis. Labs unable to be done, unable to locate sample. Co ntinues to require Oxygen. - Nephrology consulted, appreciate recommendations -O2 as necessary -HD per nephrology -supportive treatment Bacteremia - Coag negative staph. - likely contaminant. - ID following, appreciate recommendations. Hyperkalemia Potassium of 6.8 without peaked Ts on EKG on admission, normalized with HD. - Monitor - Nephrology follow appreciate recommendations End-stage renal disease on hemodialysis. missed dialysis since 12/06 (last dialysis 12/04) d ue to transportation issues. MWF dialysis -Consulted nephrology -Renal diet with 1200 mL fluid restriction/sodium restriction. - Monitor Combined systolic/diastolic CHF ECHO (11/06/2018): EF 30% with severe TR and pulmonary HTN, m oderatedly dilated RV, PASP is 73 mmHg - Baseline weight [id number]. In acute exacerbation - HD per nephrology - monitor Anemia of chronic kidney disease/end-stage renal disease - Epogen per nephrologyduring this admission - monitor Essential HTN - Continue cozaar and toprolol XL with holding parameters HX henoch-Schonlein purpura Diagnosed at age 10 and this lead to dialysis R pleural effusion - CT chest showing pleural effusion - Thoracentesis on 12/12, no repeat C XR done - CXR to evaluate post thoracentesis - continue supplemental O2 Abd pain Due to edema, pt states only IV dilaudid works, I told her that is excessive for pain, ultr am did not help. Will try prn oxycodone DVT prophylaxis:sc heparin Code status:Full Med rec:done with pt on 12/11, Jw Neri DO 12/13/2018 14:42 Reno Saeed MD - 12/13/2018 11:32 AM PDTFormatting of this note might be different from the [facility] Service: Infectious Diseases Progress Note Hospital Day: LOS: 2 days Post-Op Day: * No surgery found * CC: Follow up on bacteremia. SUBJECTIVE/OVERNIGHT EVENTS Continues on iv antibiotic therapy. Denies new concerns and denies side effects. Tolerating antibiotics well. No acute events over the last 24 hours. Blood cultures showed coagulase-negative Staphylococcus. Unfortunately, her pleural fluid was not sent for analysis. The patient denies chest pain, shortness of breath, cough. Intake/Output Summary (Last 24 hours) at 12/13/2018 1132 Last data filed at 12/13/2018 1030 Gross per 24 hour Intake 900 ml Output 3000 ml Net -2100 ml REVIEW OF SYSTEMS . GI: denies diarrhea. Skin: denies skin rash. Constitutional: denies fever and chills. Respi ratory: denies difficulty breathing. Other systems were negative. MEDICATIONS: Scheduled Meds: clopidogrel 75 mg Oral Daily epoetin jenna-epbx 10,000 Units Intravenous With each dialysis heparin 5,000 Units Subcutaneous 2 times per day losartan 25 mg Oral Daily metoprolol succinate 50 mg Oral Daily pantoprazole 40 mg Oral QAM AC sevelamer carbonate 1,600 mg Oral TID WC vancomycin 750 mg Intravenous Once vancomycin 750 mg Intravenous See Admin Instructions vancomycin per pharmacy Other Pharmacy Consult Continuous Infusions: heparin 400 Units/hr (12/12/18 5420) PRN Meds:.acetaminophen, albumin, albuterol-ipratropium, nitroglycerin, ondansetron, oxyCOD ONE, sodium chloride 0.9%, sodium chloride 0.9% PHYSICAL EXAM Vital Signs: BP 116/63 | Pulse 74 | Temp 36.7 C (98.1 F) (Oral) | Resp 18 | Ht 1.702 m (5' 7") | Wt 63.5 kg (139 lb 15.9 oz) | LMP (LMP Unknown) | SpO2 94% | ? No | BMI 21.93 kg/m Focused exam shows: General exam: No distress, cooperative with exam. HEENT: sclera non-icteric, no visible oral thrush Cardiovascular: regular rate and rhythm Lungs: no tachypnea, clear breath sounds. Mildly decreased at bases Abdomen: no distension, bowel sounds present Extremities/MSK: No edema, no joint effusions Skin: No lesions, normal turgor Neurologic: Awake, cranial nerves intact. Follows commands. Venous access: PIV. LABS: All labs were reviewed. Recent Results (from the past 24 hour(s)) Basic Metabolic Panel Result Value Ref Range Na 136 135 - 145 mmol/L K 4.6 3.5 - 4.9 mmol/L Cl 98 (L) 99 - 109 mmol/L CO2 31 23 - 32 mmol/L Anion Gap 12 5 - 20 mmol/L Glucose 84 65 - 99 mg/dL BUN 17 8 - 25 mg/dL Creatinine 4.9 (H) 0.50 - 1.00 mg/dL BUN/Creatinine Ratio 3 Calcium 9.5 8.5 - 10.5 mg/dL Estimated GFR 11 (L) >60 mL/min/1.73m2 Microbiology Results (Last 14 Days by Collected Date with Culture/Sensitivity) Procedure Component Value Units Date/Time Culture, Blood [[id number]] Collected: 12/12/18 194 Order Status: Canceled Lab Status: No result Specimen: Peripheral Blood Culture, Body Fluid Sterile [[id number]] Order Status: No result Lab Status: No result Specimen: Body Fluid from Pleural Fluid, Right Culture, Blood [[id number]] Collected: 12/12/18 0502 Order Status: Sent Lab Status: In process Updated: 12/12/18 1005 Specimen: Peripheral Blood Influenza A and B RNA, NAAT [[id number]] Collected: 12/11/18 1556 Order Status: Completed Lab Status: Final result Updated: 12/11/18 1619 Influenza A NEGATIVE Influenza B NEGATIVE Comment: Testing performed by [employer] Testing performed at [facility] [place] [address] Flu Swab Collection [[id number]] Collected: 12/11/18 1546 Order Status: Completed Lab Status: Final result Updated: 12/11/18 1549 Specimen: Tissue from Nasopharynx Collection SPECIMEN RECEIVED IN LAB Comment: Testing performed at [facility] [place] [address] Culture, Blood [[id number]] Collected: 12/11/18 0615 Order Status: Completed Lab Status: Preliminary result Updated: 12/12/18 1134 Specimen: Peripheral Blood Special Requests RAC Special Requests Testing performed at [facility] [place] [address] RESULT NO GROWTH AT THIS TIME RESULT Testing performed at [facility], [address] [place] [id number] Comment: Testing performed at [facility], [address] [place] [address] Culture, Blood [[id number]] (Abnormal) Collected: 12/10/18 2343 Order Status: Completed Lab Status: Final result Updated: 12/13/18 1009 Specimen: Blood from Line Gram Stain Result -- GRAM POSITIVE COCCI IN CLUSTERS SEEN IN AEROBIC BOTTLE SEEN IN ANAEROBIC BOTTLE Gram Stain Result -- SMEAR RESULTS CALLED TO AND READ BACK BY: Brigitte CARTER 6RDerick @ 8191 12/11/18 CDS RESULT STAPHYLOCOCCUS SPECIES, COAGULASE NEGATIVE RESULT GROWTH IN TWO OF TWO BOTTLES RESULT -- TIME TO DETECTION: 0.69 DAYS RESULT POSSIBLE CONTAMINANT, CLINICAL CORRELATION REQUIRED. RESULT Testing performed at [facility], [address] [place] [id number] Comment: Testing performed at [address] [address] Microbiology Results (72 hrs) Procedure Component Value Units Date/Time Culture, Blood [[id number]] Collected: 12/12/18 0502 Order Status: Sent Lab Status: In process Updated: 12/12/18 1005 Specimen: Peripheral Blood Influenza A and B RNA, NAAT [[id number]] Collected: 12/11/18 1556 Order Status: Completed Lab Status: Final result Updated: 12/11/18 1619 Influenza A NEGATIVE Influenza B NEGATIVE Comment: Testing performed by [employer] Testing performed at [facility];[address] [place] [address] Flu Swab Collection [[id number]] Collected: 12/11/18 1546 Order Status: Completed Lab Status: Final result Updated: 12/11/18 1549 Specimen: Tissue from Nasopharynx Collection SPECIMEN RECEIVED IN LAB Comment: Testing performed at [facility];[address] [place] [address] Culture, Blood [[id number]] Collected: 12/11/18 0615 Order Status: Completed Lab Status: Preliminary result Updated: 12/12/18 1134 Specimen: Peripheral Blood Special Requests RAC Special Requests Testing performed at [facility];[address] [place] [address] RESULT NO GROWTH AT THIS TIME RESULT Testing performed at [facility], [address] [place] [address] Comment: Testing performed at [facility], [address] [place] [address] Culture, Blood [[id number]] (Abnormal) Collected: 12/10/18 2343 Order Status: Completed Lab Status: Final result Updated: 12/13/18 1009 Specimen: Blood from Line Gram Stain Result -- GRAM POSITIVE COCCI IN CLUSTERS SEEN IN AEROBIC BOTTLE SEEN IN ANAEROBIC BOTTLE Gram Stain Result -- SMEAR RESULTS CALLED TO AND READ BACK BY: Brigitte CARTER @ 6491 12/11/18 CDS RESULT STAPHYLOCOCCUS SPECIES, COAGULASE NEGATIVE RESULT GROWTH IN TWO OF TWO BOTTLES RESULT -- TIME TO DETECTION: 0.69 DAYS RESULT POSSIBLE CONTAMINANT, CLINICAL CORRELATION REQUIRED. RESULT Testing performed at [facility], [address] [place] [address] Comment: Testing performed at [facility], [address] [place] [address] IMAGING: No new images for review today. ASSESSMENT & PLAN The patient is a 23 y.o.-year-old female with the following problems: Active Hospital Problems Diagnosis Date Noted Bacteremia due to Gram-positive bacteria 12/12/2018 Priority: High Pericardial effusion without cardiac tamponade 11/07/2018 Priority: High ESRD on hemodialysis Priority: High Pulmonary edema with congestive heart failure with reduced left ventricular function 0 11/06/2018 Troponin I above reference range 07/19/2018 Acute respiratory failure with hypoxia 07/18/2018 Chronic right-sided heart failure 07/18/2018 Dilated cardiomyopathy 06/28/2018 Chronic combined systolic and diastolic heart failure 05/27/2018 Moderate to severe pulmonary hypertension 05/27/2018 Hyperphosphatemia 05/27/2018 At high risk for electrolyte imbalance 05/27/2018 Non-compliance 05/26/2018 Pleural effusion, not elsewhere classified 05/26/2018 History of Henoch-Schonlein purpura Anemia in ESRD (end-stage renal disease) Secondary hyperparathyroidism Resolved Hospital Problems No resolved problems to display. Blood culture results indicate contamination. Stop antibiotics and observe. Her pleural effusion is most likely transudate. Clinically stable from ID standpoint. Repeat CBC and CMP in the am. Patient updated on his/her condition today. Discussed with attending provider: Jw Neri DO . Reno Thacker MD, MPH Infectious Diseases 12/13/18 Sulma King PharmD - 12/13/2018 10:22 AM PDT Clinical Pharmacy Note: Pharmacy Dosing Vancomycin; Day 2 Ht Readings from Last 1 Encounters: 12/12/18 1.702 m (5' 7") Wt Readings from Last 1 Encounters: 12/12/18 70.3 kg (155 lb) Lab Results Component Value Date WBC 4.88 12/12/2018 Serum creatinine: 4.9 mg/dL (H) 12/13/18 0527 Estimated creatinine clearance: 18 mL/min (A) INDICATION: Bacteremia Patient is receiving HD this morning. Scheduled a one time dose of vancomycin 750mg IV to b e given after dialysis today. Sulma Raza RPh 12/13/2018 10:21 Malka Pozo MD - 12/12/2018 3:18 PM PDT 6612/6612-01 Hospital Day: LOS: 1 day She had uncomplicated dialysis today with 1.5 L ultrafiltration. Blood cultures on admission came back as showing gram-positive cocci in clusters in 2 bottl es last night. She feels OK for the most part. There are no documented episodes of fever/nausea/vomiting/abdominal pain/shortness of breat h at rest/chest pain/cough. PMH, PSH, Social history reviewed in chart. [...] negative. Examination: Vitals as noted General appearance: Lying in bed with comfortably. Head/Neck: FROM, supple. Facial puffiness noted. JVD +. Lungs: Reduced air entry right lower infrascapular area with fair air entry on the left cortney e. Wheezing noted. CV: RRR, no MRGs; normal carotid upstroke and amplitude without bruits. Systolic/diastolic murmur at the apex. No pericardial rub noted. Abdomen: Soft, non-tender; no masses or HSM Extremities: No peripheral edema or digital cyanosis Skin: no rash, lesions or ulcers Psych: Pleasant demeanor. Neurologic: Alert, awake and oriented to person, place and time. No asterixis. Dialysis access: Left UE AVF with no evidence of malfunction/inflammation. Vital Signs: BP 122/70 | Pulse 89 | Temp 36.6 C (97.9 F) (Oral) | Resp 16 | Ht 1.702 m (5' 7") | Wt 70.3 kg (155 lb) | LMP (LMP Unknown) | SpO2 98% | ? No | BMI 24.28 kg /m Data evaluation: Lab Results Component Value Date BUN 38 (H) 12/12/2018 EGFR 7 (L) 12/12/2018 NA 137 12/12/2018 K 4.4 12/12/2018 CL 98 (L) 12/12/2018 CO2 28 12/12/2018 PHOS 8.9 (H) 12/10/2018 MG 2.2 12/10/2018 HGB 9.8 (L) 12/12/2018 Lab Results Component Value Date HGB 9.8 (L) 12/12/2018 HGB 10.3 (L) 12/10/2018 HGB 9.4 (L) 11/09/2018 Lab Results Component Value Date ANIONGAP 15 12/12/2018 Lab Results Component Value Date TROPONINT 0.085 (H) 12/10/2018 TROPONINT 0.045 (H) 11/07/2018 TROPONINT 0.045 (H) 11/06/2018 Lab Results Component Value Date BNP 1,151.26 (H) 10/17/2018 BNP 1,153.92 (H) 05/27/2018 BNP 1,728.24 (H) 05/26/2018 Lab Results Component Value Date CRP 8.6 (H) 12/12/2018 CRP 5.1 (H) 05/28/2018 Ct Chest Abdomen Pelvis Wo Contrast 12/11/2018 showed large right pleural effusion with comp ressive atelectasis of the adjacent lung. 2. Mohs act attenuation in the left lung as seen on multiple prior studies 2. Mild splenomegaly. 3. Mild ascites. 4. Atrophic kidneys. 5. Tiny punctate nonobstructing left renal calculus. 6. Mild diffuse body wall edema. Xr Chest Ap Portable 12/10/2018 showed moderate right pleural effusion with adjacent sharon sive atelectasis, increased from prior exam. 2. Cardiomegaly. Echocardiogram from 12 June this year showed ejection fraction of 30 to 35% with restrictiv e LV diastolic pattern, moderate mitral regurgitation, severe tricuspid regurgitation and se jaquan pulmonary hypertension. Assessment recommendations and plan: 1. Hypervolemia with congestive heart failure 2. Gram-positive cocci bacteremia from 10 December 3. End-stage renal disease on hemodialysis 4. Nonadherence to dialysis prescription 5. Hyperkalemia, resolved 6. IAG metabolic acidosis, improved 7. Hyperphosphatemia 8. Recurrent right pleural effusion 9. Anemia, chronic renal failure She is hemodynamically stable with no evidence of fever/tachycardia/bradycardia/severe hype rtension or severe hypotension/hypoxia. With dialysis/ultrafiltration hypervolemia has improved although not fully resolved. New issue of bacteremia needs further work-up. Echocardiogram has been done and is pending and she is now on vancomycin pending further edification and susceptibility testing. She remains hypervolemic. Hyperkalemia though has resolved. Plan To Dialyze tomorrow per usual prescription using left UE AVF. UF as tolerated (typically over 2 L UF she begins to cramp). Follow-up susceptibility testing for gram-positive cocci. Continue vancomycin pending f falguni results. To use ESTEFANY/Fe use to keep Hb at target range of 10 to 11. I discussed with her the concept of hypervolemia and interaction of BP/volume status/medica tions in preserving homeostasis with ESRD. She should be on a 2 gm Na, 2 gm K, 1 gm PO4, 1 gm/kg protein diet. Please dose all medications for an eGFR of less than 10 ml/min/1.73 m2. NSAIDS/SUAREZ 2 inhibitors should be avoided. Aluminum/magnesium containing antacids and magne sium/phosphate containing enemas should be avoided. Fluid should be restricted to less than 1.5 L in a 24 hr period. Strict I/O should be done. Plan of care was discussed with Dr. Neri today. Cliff Duarte MD 12/12/2018 Portions of my previous notes have been carried over for continuity of chart review/care. She was seen earlier in the day and charting was completed later after rounds. Dictation software, [employer], was used which may contain error for [...] including but not limi wilmer to . clopidogrel 75 mg Oral Daily epoetin jenna-epbx 10,000 Units Intravenous With each dialysis heparin 5,000 Units Subcutaneous 2 times per day losartan 25 mg Oral Daily metoprolol succinate 50 mg Oral Daily pantoprazole 40 mg Oral QAM AC sevelamer carbonate 1,600 mg Oral TID [START ON 12/13/2018] vancomycin 750 mg Intravenous See Admin Instructions vancomycin 25 mg/kg Intravenous Once vancomycin per pharmacy Other Pharmacy Consult heparin 400 Units/hr (12/12/18 0827) Vida Whittaker, [facility] - 12/12/2018 1:37 PM PDTClinical Pharmacy Note: Vancomycin Day 1 Referring Provider: Dr. Prado Subjective / Objective Dara Weldon 23 y.o. female Height: 170.2 cm Weight: 70.7 kg Presentation: Bacteremia @DETAILS@ Additional antibiotics ordered: Zosyn Assessment / Plan Indication: Bacteremia Patient on hemodialysis - will dose Vanacomycin per ESRD / Hemodialysis Protocol. First dose of Vancomycin 1750 mg was dispensed 12/12 at 0930. Plan Vancomycin 750 mg during the last hour of each HD session (or immediately following HD ). Trough monitoring is not necessary at this time. Pharmacy will order levels (with goal 15 to 20 mcg/mL) if deemed necessary and will adjust dose accordingly. VIDA ANDERSEN RPH, Pharmacist 12/12/2018 13:33 a, Lee Mckeon MD - 12/12/2018 8:29 AM PDTFormatting of this not e might be different from the original. [facility] Hospitalist Progress Note Hospital Day: 1 SUBJECTIVE Pt feels sudhakar today, has abdominal pain due to edema (usually happens when she misses dialysis). Review of Systems Constitutional: Negative. HENT: Negative. Eyes: Negative. Respiratory: Positive for shortness of breath. Cardiovascular: Positive for leg swelling. Gastrointestinal: Negative. Genitourinary: Positive for flank pain. Skin: Negative. Neurological: Negative. Endo/Heme/Allergies: Negative. Psychiatric/Behavioral: Negative. OBJECTIVE Vital Signs: BP 138/79 | Pulse 79 | Temp 36.4 C (97.5 F) (Temporal) | Resp 16 | Wt 70.7 kg (155 lb 13.8 oz) | LMP (LMP Unknown) | SpO2 100% | ? No | BMI 24.41 kg/m Physical Exam Constitutional: She appears well-developed and well-nourished. HENT: Head: Normocephalic and atraumatic. Eyes: Pupils are equal, round, and reactive to light. EOM are normal. Neck: Normal range of motion. Neck supple. Cardiovascular: Normal rate and regular rhythm. Pulmonary/Chest: Effort normal. Abdominal: Bowel sounds are normal. She exhibits distension. There is tenderness. Musculoskeletal: Normal range of motion. She exhibits edema. Neurological: She is alert. Skin: Skin is warm and dry. DATA BMP 137 98* 38* 78 4.4 28 7.4* CaMgPhos 8.9 2.2 8.9* LFT 27 123* 22 4.3 CBC 4.88 9.8* 153 29.2* Coag 32 1.3 Last labs from current encounter as of 12/12/18-08:29 No results for input(s): TROPONIN, BNP in the last 72 hours. No results for input(s): PROCALCITONI in the last 72 hours. Imaging: -Imaging reviewed and will be addressed as indicated in the assessment and plan. PROBLEM LIST Principal Problem: Acute respiratory failure with hypoxia Active Problems: ESRD on hemodialysis Pericardial effusion without cardiac tamponade History of Henoch-Schonlein purpura Anemia in ESRD (end-stage renal disease) Secondary hyperparathyroidism Chronic combined systolic and diastolic heart failure At high risk for electrolyte imbalance Chronic right-sided heart failure Dilated cardiomyopathy Hyperphosphatemia Moderate to severe pulmonary hypertension Non-compliance Pleural effusion, not elsewhere classified Troponin I above reference range Pulmonary edema with congestive heart failure with reduced left ventricular function ESRD on hemodialysis Resolved Problems: * No resolved hospital problems. * IMPRESSION/PLAN: Acute Respiratory Failure Pt with acute respiratory failure secondary to CHF exacerbation from missed dialysis susy segal Will consult nephrology, treat pt symptomatically -O2 as tolerated -HD -supportive treatment Hyperkalemia Potassium of 6.8 without peaked Ts on EKG on admission --> 4.4 on 12/12 Pt given calcium gluconate, insulin and D50 in ER Recheck, needs dialysis End-stage renal disease on hemodialysis. Pt states she has missed dialysis since 12/06 (last dialysis 12/04) due to transportation iss ues On a Monday, Monday, and Monday schedule -Consulted nephrology -Renal diet with 1200 mL fluid restriction/sodium restriction. -Creatinine of 13.8 on admission Combined systolic/diastolic CHF Last ECHO on 11/06/2018 showed EF 30% with severe TR and pulmonary HTN, moderatedly dilated R V, PASP is 73 mmHg Baseline weight of 158 lbs Pt is relatively aneuric and will be diuresed with HD Anemia of chronic kidney disease/end-stage renal disease Epogen per nephrology during this admission H/H at baseline on admission .9 Essential HTN Continue cozaar and toprolol XL with holding parameters HX henoch-Schonlein purpura Diagnosed at age 10 and this lead to dialysis R pleural effusion CT chest/abd/pelvis on 12/11 showed Large right pleural effusion with compressive atelectasis of the adjacent lung. Mohs act attenuation in the left lung as seen on multiple prior studies which may be related to underlying air trapping, emphysema or edema. Mild splenomegaly. Mild ascites. Atrophic kidneys. Tiny punctate nonobstructing left renal calculus. Mild diffuse body wall edema Pt had a thoracentesis on 11/07/18 during previous admission, pleural fluid path and cultures were negative -IR thoracentesis done on 12/11, cultures pending ID Pt with temp of 100.2 on admission, no clear infection on imaging or exam, WBC of 9.27 on a dmission BC X 2 sent, 1/2 positive on admission Pt given dose of zosyn and zithromax in ER 1/2 BC positive --> zosyn 3.375 gm zosyn IV q12 hr started --> vancomycin added on 12/12 will check ECHO -another 2 sets of blood cultures resent on 12/12 -ID consulted Abd pain Due to edema, pt states only IV dilaudid works, I told her that is excessive for pain, ultr am did not help. Will try prn oxycodone Med surg bundle DVT prophylaxis: sc heparin Code status: Full Med rec: done with pt on 12/11, Family Contact: declined for me to update family or friends Something about patient: lives alone, on disability, is not and has no children Med surg bundle DVT prophylaxis: Code status: Med rec: Family Contact: Something about patient: Lee Jimenes Ma, MD 8:29 12/12/2018 rost, Taylor Linda, [facility] - 1 7:46 PM PDT Clinical Pharmacy Note: Piperacillin-Tazobactam (Zosyn) Extended Infusion Pharmacy to initiate zosyn per Dr. Harris S/O: 23 y.o. female starting zosyn on 12/11/2018 for Sepsis. Ht Readings from Last 1 Encounters: 11/06/18 1.702 m (5' 7") Wt Readings from Last 1 Encounters: 12/10/18 70.7 kg (155 lb 13.8 oz) Serum creatinine: 13.63 mg/dL (H) 12/11/18 0615 Estimated creatinine clearance: 6 mL/min (A) No components found for: NEUTROABS A/P: Renal function status: HD patient with outpatient schedule of Mon, Mon, Mon dialysis. Last session was Monday12/11/18 in house. Loading dose of 3.375 g IV was administered 12/11/2018 at 0100 and then patient was dialyzed at 1000 this morning. Will re-load with another 3.375 g dose at 2000 since first loading d ose was administered more than 19 hours ago and patient has been dialyzed. We will then con tinue with 3.375 g IV Q 12 hours to start 4 hours after 2nd loading dose is complete (each 3 .375 g dose to be infused over 4 hours). Pharmacy will continue monitoring patient for appropriate dosing per renal function. TAYLOR MCNAIR RPH 19:31 12/11/2018 Pharmacist Leonard Jacobsen R N - 12/11/2018 4:13 PM PDTPatient vital signs stable. 2.5 liters off via hemodialysis. Se e hemodialysis notes. She is very sleepy. Zofran 4 mg iv given for nausea. Ultram 50 mg p o given for abdominal pain. She remains on 3 liters oxygen via nasal canula. End of shift chart review complete. Electronically signed by Leonard Garay RN at 12/11 4:15 PM Conner Carmona CRT - 12/11/2018 1:33 AM PDTCpap started and abg done as ordered. Pt somnolent but awakens easily and follows commands. documented in this encounter Plan of Treatment +--------+---------+ + + + | Date | Type | Specialty | Care Team | Description | +--------+---------+ + + + | 04/18/ | Office | Pulmonology | Denny Alexander | | | 2020 | Visit | | Deny Briggs MD [address] | | | | | [address] | | | | | | [place] [address] | | | | | | [phone] | | | | | | | | +--------+---------+ + + + + +------+--------+ + + | Name | Type | Priori | Associated Diagnoses | Date/Time | | | | ty | | | + +------+--------+ + + | ED INFORMATION | SHEILA | Routin | | 12/10/2018 10:01 PM | | EXCHANGE | | e | | PDT | + +------+--------+ + + + + +--------+ + + | Name | Type | Priori | Associated Diagnoses | Order Schedule | | | | ty | | | + + +--------+ + + | Medical Cytology | Pathology | Routin | | One Time for 1 | | | and | e | | Occurrences starting | | | Cytology | | | 12/12/2018 until | | | | | | 12/12/2018 | + + +--------+ + + documented [...] | | | 2018 | | | 10:02 | | | [...] | | | ON?10/ | | | | | | 9 | | | 22:01? | | | BLANDON | | | ON, | | | DARA | | | | | | R?MRN: | | | | | | [id number] | | | [id number] | | | riteri | | | [...] | | | St. | | | [place] | | | y | | | [...] | | | St. | | | [place] | | | y | | | [...] | | | ey | | | //1 | | | 9 | | | 12:00 | | | AM | | | [facility] | [facility] | | | [place] | | | y | | | [...] | | | St | | | [place] | | | y | | | [...] St | | | | | | [place] | | | y | | | [...] | | | St. | | | [place] | | | y | | | [...] | | | St. | | | [place] | | | y H. | | [...] | | | St. | | | [place] | | | y H. | | [...] | | | St. | | | [place] | | | y H. | | [...] | | | St. | | | [place] | | | y H. | | [...] | | | St. | | | [place] | | | y H. | | [...] | | | St. | | | [place] | | | y H. | | [...] | | | St. | | | [place] | | | y H. 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 on [...] | | | | + + + CBC with Differential (12/14/2018 6:10 AM PDT) + + +---- + + + | Component | Value | Ref Range | Performed | Pathologist | | | | | At | Signature | + + +---- + + + | WBC | 7.00 | 3.8 0 - 11.00 | [facility] | | | | | K/u L | LABORATORY | | + + +---- + + + | RBC | 2.95 (L) | 3.7 0 - 5.10 | [facility] | | | | | M/u L | LABORATORY | | + + +---- + + + | Hemoglobin | 10.7 (L) | 11. 3 - 15.5 | [facility] | | | | | g/d L | LABORATORY | | + + +---- + + + | Hematocrit | 32.1 (L) | 34. 0 - 46.0 % | [facility] | | | | | | LABORATORY | | + + +---- + + + | MCV | 108.7 (H) | 80. 0 - 100.0 fl | [facility] | | | | | | LABORATORY | | + + +---- + + + | MCH | 36.1 (H) | 27. 0 - 34.0 pg | [facility] | | | | | | LABORATORY | | + + +---- + + + | MCHC | 33.2 | 32. 0 - 35.5 | [facility] | | | | | g/d L | LABORATORY | | + + +---- + + + | RDW-SD | 64.3 (H) | 37 - 53 fl | [facility] | | | | | | LABORATORY | | + + +---- + + + | Platelet | 200 | 150 - 400 K/uL | [facility] [...] +---- + + + | % | 46.98 | % | [facility] | | | Neutrophils | | | LABORATORY | | + + +---- + + + | % | 27.60 | % | [facility] | | | Lymphocytes | | | LABORATORY | | + + +---- + + + | Monocyte % | 8.75 | % | [facility] | | | | | | LABORATORY | | + + +---- + + + | Eosinophils | 15.77 | % | [facility] | | | % | | | LABORATORY | | + + +---- + + + | Basophils % | 0.90 | % | [facility] | | | | | | LABORATORY | | + + +---- + + + | Neutrophils | 3.29 | 1.9 0 - 7.40 | [facility] | | | , Absolute | | K/u L | LABORATORY | | + + +---- + + + | Absolute | 1.93 | 1.0 0 - 3.90 | [facility] | | | Lymphocytes | | K/u L | LABORATORY | | + + +---- + + + | Absolute | 0.61 | 0.0 0 - 0.80 | [facility] | | | Monocytes | | K/u L | LABORATORY | | + + +---- + + + | Eosinophils | 1.10 (H) | 0.0 0 - 0.50 | [facility] | | | , Absolute | | K/u L | LABORATORY | | + + +---- + + + | Basophils, | 0.06 | 0.0 0 - 0.10 | [facility] | | | Absolute | | K/u L | LABORATORY | | + + +---- + + + | RBC | 2+Comment: | | [facility] | | | Morphology | ANISO2+MACRONORMAL PLT | | LABORATORY | | | | MORPHTesting performed | | | | | | at [facility], [address] | | | | | | [facility], | | | | | | [place] [address] | | | | | |Testing performed at [facility], [address] [place] [address] | | | | | | | | | | + + +---- + + + + + | Specimen | + + | Blood | + + + + + + + | Performing | Address | City/State/Zipcode | Phone Number | | Organization | | | | + + + + + | [facility] | [address] | [place] [address] | [phone] | + + + + + Basic Metabolic Panel (12/14/2018 6:10 AM PDT) + + + + [...] 7 (L)Comment: GFR <60: | >60 | [facility] | | | GFR | CHRONIC [...] | | | | | | MDRD [facility] traceable | | | | | | equation.Testing | | | | | | performed at [facility], [address] | | | | | | [facility], | | | | | | [place] [address] | | | | + + + + + + + + | Specimen | + + | Blood | + + + + + + + | Performing | Address | City/State/Zipcode | Phone Number | | Organization | | | | + + + + + | [facility] | [address] | [place] [address] | [phone] | + + + + + XR Chest AP Portable (12/13/2018 3:39 PM PDT) + + | Specimen | [...] + | Cedric, Rad Results In - 12/13/2018 3:47 PM PDT | | CHEST PORTABLE ONE [...] + +---------+ + + Basic Metabolic Panel (12/13/2018 5:27 AM PDT) + + + + + + | Component | Value | Ref Range | Performed | Pathologist | | | | | At | Signature | + + + + + + | Na | 136 | 135 - 145 | [facility] | | | | | mmol/L | LABORATORY | | + + + + + + | K | 4.6 | 3.5 - 4.9 | [facility] | | | | | mmol/L | LABORATORY | | + + + + + + | Cl | 98 (L) | 99 - 109 mmol/L | [facility] [...] + + + + | Glucose | 84 | 65 - 99 mg/dL | [facility] | | | | | | LABORATORY | | + + + + + + | BUN | 17 | 8 - 25 mg/dL | [facility] | | | | | | LABORATORY | | + + + + + + | Creatinine | 4.9 (H) | 0.50 - 1.00 | [facility] | | | | | mg/dL | LABORATORY | | + + + + + + | BUN/Creatin | 3 | | [facility] | | | ine Ratio | | | LABORATORY | | + + + + + + | Calcium | 9.5 | 8.5 - 10.5 | [facility] | | | | | mg/dL | LABORATORY | | + + + + + + | Estimated | 11 (L)Comment: GFR <60: | >60 | [facility] [...] | | | | | performed at [facility], [address] | | | | | | [facility], | | | | | | [place] [address] | | | | + + + + + + + + | Specimen | + + | Blood | + + + + + + + | Performing | Address | City/State/Zipcode | Phone Number | | Organization | | | | + + + + + | [facility] | [address] | [place] [address] | [phone] | + + + + + US Guided Thoracentesis wo [...] + | Cedric, Rad Results In - 12/12/2018 5:31 PM [...] | + +---------+ + + C-Reactive Protein (12/12/2018 5:02 AM PDT) + + + + + + | Component | Value | Ref Range | Performed | Pathologist | | | | | At | Signature | + + + + + + | CRP | 8.6 (H)Comment: Testing | <0.5 mg/dL | [facility] | | | | performed at [facility], [address] | | LABORATORY | | | | [address] | | | | | | [place] [address] | | | | + + + + + + + + | Specimen | + + | Blood | + + + + + + + | Performing | Address | City/State/Zipcode | Phone Number | | Organization | | | | + + + + + | [facility] | [address] | [place] [address] | [phone] | + + + + + Culture, Blood (12/12/2018 5:02 AM PDT) + + + [...] Special | Testing performed at | | [facility] | | | Requests | [address] | | LABORATORY | | | | [place] [address] | | | | + + + + + + | RESULT | NO GROWTH 6 DAYS | | [facility] | | | | | | [facility] | | + + + + + + | RESULT | Testing performed at | | [facility] | | | | TCL, [address] [facility] | | LABORATORY | | | | [place] | | | | | | [id number]: Testing | | | | | | performed at [facility], [address] | | | | | [place] | | | | | | [address] | | | | + + + + + + + + | Specimen | + + | Blood - Peripheral | | blood specimen | | (specimen) | + + + + + + + | Performing | Address | City/State/Zipcode | Phone Number | | Organization | | | | + + + + + | [facility] | [address] | [place] [address] | [phone] | + + + + + CBC no Differential (12/12/2018 5:02 AM PDT) + + + [...] [facility] | | | | performed at [facility], [address] | | LABORATORY | | | | [address], | | | | | | [place] [address] | | | | + + + + + + + + | Specimen | + + | Blood | + + + + + + + | Performing | Address | City/State/Zipcode | Phone Number | | Organization | | | | + + + + + | [facility] | [address] | [place] [address] | [phone] | + + + + + Basic Metabolic Panel (12/12/2018 5:02 AM PDT) + + + [...] | 4.4 | 3.5 - 4.9 | [facility] | | | | | mmol/L | LABORATORY | | + + + + + + | Cl | 98 (L) | 99 - 109 mmol/L | [facility] | | | | | | LABORATORY | | + + + + + + | CO2 | 28 | 23 - 32 mmol/L | [facility] | | | | | | LABORATORY | | + + + + + + | Anion Gap | 15 | 5 - 20 mmol/L | [facility] | | | | | | LABORATORY | | + + + + + + | Glucose | 78 | 65 - 99 mg/dL | [facility] | | | | | | LABORATORY | | + + + + + + | BUN | 38 (H) | 8 - 25 mg/dL | [facility] | | | | | | LABORATORY | | + + + + + + | Creatinine | 7.4 (H) | 0.50 - 1.00 | [facility] [...] 7 (L)Comment: GFR <60: | >60 | [facility] | | | GFR | CHRONIC [...] | | | | | | MDRD IDMT traceable | | | | | | equation.Testing | | | | | | performed at [facility], [address] | | | | | | [facility], | | | | | | [place] [address] | | | | + + + + + + + + | Specimen | + + | Blood | + + + + + + + | Performing | Address | City/State/Zipcode | Phone Number | | Organization | | | | + + + + + | [facility] | [address] | [place] [address] | [phone] | + + + + + Basic Metabolic Panel (12/11/2018 7:46 PM PDT) + + + + + + | Component | Value | Ref Range | Performed | Pathologist | | | | | At | Signature | + + + + + + | Na | 138 | 135 - 145 | [facility] | | | | | mmol/L | LABORATORY | | + + + + + + | K | 4.2 | 3.5 - 4.9 | [facility] | | | | | mmol/L | LABORATORY | | + + + + + + | Cl | 98 (L) | 99 - 109 mmol/L | [facility] [...] + + + + | Glucose | 85 | 65 - 99 mg/dL | [facility] | | | | | | LABORATORY | | + + + + + + | BUN | 32 (H) | 8 - 25 mg/dL | [facility] | | | | | | LABORATORY | | + + + + + + | Creatinine | 6.16 (H) | 0.50 - 1.00 | [facility] [...] 9 (L)Comment: GFR <60: | >60 | [facility] [...] | | | | | performed at [facility];[address] [facility];[place], [place] | | | | | | [address] | | | | + + + + + + + + | Specimen | + + | Blood | + + + + + + + | Performing | Address | City/State/Zipcode | Phone Number | | Organization | | | | + + + + + | [facility] | [address] | [place] [address] | [phone] | + + + + + Influenza A and B RNA, NAAT (12/11/2018 3:56 PM PDT) + + + + + + | Component | Value | Ref Range | Performed | Pathologist | | | | | At | Signature | + + + + + + | Influenza A | NEGATIVE | NEG | [facility] | | | | | | LABORATORY | | + + + + + + | Influenza B | NEGATIVEComment: Testing | NEG | [facility] | | | | performed by Molecular | | LABORATORY | | | | MethodologyTesting | | | | | | performed at [facility];[address] | | [address] | [facility];[place], [place] | | | | | | [address] | | | | + + + + + + + + | Specimen | + + | | + + + + + + + | Performing | Address | City/State/Zipcode | Phone Number | | Organization | | | | + + + + + | [facility] | [address] | [place] [address] | [phone] | + + + + + FLU SWAB COLLECTION (12/11/2018 3:46 PM PDT) + + + + + + | Component | Value | Ref Range | Performed | Pathologist | | | | | At | Signature | + + + + + + | Collection | SPECIMEN RECEIVED IN | | [facility] | | | | LABComment: Testing | | LABORATORY | | | | performed at [facility];[address] | | | | | | [address];[place] | | | | | | [address] | | | | + + + + + + + + | Specimen | + + | Tissue - Entire | | nasopharynx (body | | structure) | + + + + + + + | Performing | Address | City/State/Zipcode | Phone Number | | Organization | | | | + + + + + | [facility] | [address] | [place] [address] | [phone] | + + + + + POC Glucose (12/11/2018 8:31 AM PDT) + + + + + + | Component | Value | Ref Range | Performed | Pathologist | | | | | At | Signature | + + + + + + | Glucose, | 84Comment: Testing | 65 - 99 mg/dL | [facility] | | | POC | performed at [facility];[address] | | LABORATORY | | | [address];[place], [place] | | | | | | [address] | | | | + + + + + + + + | Specimen | + + | | + + + + + + + | Performing | Address | City/State/Zipcode | Phone Number | | Organization | | | | + + + + + | [facility] | [address] | [place] [address] | [phone] | + + + + + ECG 12 lead (12/11/2018 8:11 AM PDT) + + + + + [...] of | | | | | | 07-NOV-2018 | | | | | | 08:03,Incomplete [...] | | | | | ONLY, -COMPUTER ([id number]), | | | | | | department editor Daniela Luciano | | | | [...] + +---------+ + + PTT (12/11/2018 8:06 AM PDT) + + + + + + | Component | Value | Ref Range | Performed | Pathologist | | | | | At | Signature | + + + + + + | PTT | 32Comment: Testing | 23 - 32 seconds | [facility] | | | | performed at [facility] | | LABORATORY | | | | [address];[place] | | | | | | [address] | | | | + + + + + + + + | Specimen | + + | Blood | + + + + + + + | Performing | Address | City/State/Zipcode | Phone Number | | Organization | | | | + + + + + | [facility] | [address] | [place] [address] | [phone] | + + + + + Basic Metabolic Panel (12/11/2018 6:15 AM PDT) + + + + + + | Component | Value | Ref Range | Performed | Pathologist | | | | | At | Signature | + + + + + + | Na | 136 | 135 - 145 | [facility] | | | | | mmol/L | LABORATORY | | + + + + + + | K | 6.8 ()Comment: RESULT | 3.5 - 4.9 | [facility] | | | | READ BACK BY:ABRIL HUERTA | mmol/L | LABORATORY | | | | M ON [id number] BY | | | | | | JF | | | | | | | | | | + + + + + + | Cl | 98 (L) | 99 - 109 mmol/L | [facility] | | | | | | LABORATORY | | + + + + + + | CO2 | 22 (L) | 23 - 32 mmol/L | [facility] | | | | | | LABORATORY | | + + + + + + | Anion Gap | 23 (H) | 5 - 20 mmol/L | [facility] | | | | | | LABORATORY | | + + + + + + | Glucose | 81 | 65 - 99 mg/dL | [facility] | | | | | | LABORATORY | | + + + + + + | BUN | 84 (H) | 8 - 25 mg/dL | [facility] | | | | | | LABORATORY | | + + + + + + | Creatinine | 13.63 (H) | 0.50 - 1.00 | [facility] | | | | | mg/dL | LABORATORY | | + + + + + + | BUN/Creatin | 6 | | [facility] | | | ine Ratio | | | LABORATORY | | + + + + + + | Calcium | 9.3 | 8.5 - 10.5 | [facility] | | | | | mg/dL | LABORATORY | | + + + + + + | Estimated | 3 (L)Comment: GFR <60: | >60 | [facility] [...] | | | | | performed at [facility];[address] | | | | | | [facility];[place], [place] | | | | | | [address] | | | | + + + + + + + + | Specimen | + + | Blood | + + + + + + + | Performing | Address | City/State/Zipcode | Phone Number | | Organization | | | | + + + + + | [facility] | [address] | [place] [address] | [phone] | + + + + + Culture, Blood (12/11/2018 6:15 AM PDT) + + + + + + | Component | Value | Ref Range | Performed | Pathologist | | | | | At | Signature | + + + + + + | Special | RAC | | [facility] | | | Requests | | | LABORATORY | | + + + + + + | Special | Testing performed at | | [facility] | | | Requests | [facility] | | LABORATORY | | | | [place] [address] | | | | + + + + + + | RESULT | NO GROWTH 6 DAYS | | [facility] | | | | | | LABORATORY | | + + + + + + | RESULT | Testing performed at | | [facility] | | | | TCL, [address] [facility] | | LABORATORY | | | | [place] | | | | | | [id number]: Testing | | | | | | performed at [facility], [address] | | | | | | [address] [place] | | | | | | [address] | | | | + + + + + + + + | Specimen | + + | Blood - Peripheral | | blood specimen | | (specimen) | + + + + + + + | Performing | Address | City/State/Zipcode | Phone Number | | Organization | | | | + + + + + | [facility] | [address] | [place] [address] | [phone] | + + + + + CT [...] + | Cedric, Rad Results In - 12/11/2018 2:49 AM [...] LABORATORY | | | | performed at [facility];[address] | | [address];[place] | | | | | | [address] | | | | + + + + + + + + | Specimen | + + | | + + + + + + + | Performing | Address | City/State/Zipcode | Phone Number | | Organization | | | | + + + + + | [facility] | [address] | [place] [address] | [phone] | + + + + + Lactic Acid (12/11/2018 1:04 AM PDT) + + + + + + | Component | Value | Ref Range | Performed | Pathologist | | | | | At | Signature | + + + + + + | Lactate, | 1.2Comment: Testing | 0.4 - 2.0 | [facility] | | | Serum | performed at [facility];[address] | mmol/L | LABORATORY | | | | [address];[place] | | | | | | [address] | | | | + + + + + + + + | Specimen | + + | Blood | + + + + + + + | Performing | Address | City/State/Zipcode | Phone Number | | Organization | | | | + + + + + | [facility] | [address] | [place] [address] | [phone] | + + + + + Lactic Acid (12/10/2018 11:44 PM PDT) + + + + + + | Component | Value | Ref Range | Performed | Pathologist | | | | | At | Signature | + + + + + + | Lactate, | 0.8Comment: Testing | 0.4 - 2.0 | [facility] | | | Serum | performed at [facility];[address] | mmol/L | LABORATORY | | | | [address];[place] | | | | | | [address] | | | | + + + + + + + + | Specimen | + + | Blood | + + + + + + + | Performing | Address | City/State/Zipcode | Phone Number | | Organization | | | | + + + + + | [facility] | [address] | [place] [address] | [phone] | + + + + + Culture, Blood (12/10/2018 11:43 PM PDT) + + + + + + | Component | Value | Ref Range | Performed | Pathologist | | | | | At | Signature | + + + + + + | Gram Stain | GRAM POSITIVE COCCI IN | | [facility] | | | Result | CLUSTERSSEEN IN AEROBIC | | LABORATORY | | | | BOTTLESEEN IN ANAEROBIC | | | | | | BOTTLE (A) | | | | + + + + + + | Gram Stain | SMEAR RESULTS CALLED TO | | [facility] | | | Result | AND READ BACK | | LABORATORY | | | | BY:Brigitte CARTER 6RDerick @ 2535 | | | | | | 12/11/18 CDS | | | | + + + + + + | RESULT | STAPHYLOCOCCUS SPECIES, | | [facility] | | | | COAGULASE NEGATIVE (A) | | LABORATORY | | + + + + + + | RESULT | GROWTH IN TWO OF TWO | | [facility] | | | | BOTTLES (A) | | LABORATORY | | + + + + + + | RESULT | TIME TO DETECTION: | | [facility] | | | | 0.69 DAYS | | LABORATORY | | | | | | | | + + + + + + | RESULT | POSSIBLE CONTAMINANT, | | [facility] | | | | CLINICAL CORRELATION | | LABORATORY | | | | REQUIRED. | | | | + + + + + + | RESULT | Testing performed at | | [facility] | | | | [facility], [address] | | LABORATORY | | | | [place], [place] | | | | | | [id number]: Testing | | | | | | performed at [facility], [address] | | | | | [address], | | | | | | [place] [address] | | | | + + + + + + + + | Specimen | + + | Blood - Swab of line | | insertion site | | (specimen) | + + + + + + + | Performing | Address | City/State/Zipcode | Phone Number | | Organization | | | | + + + + + | [facility] | [address] | [place] [address] | [phone] | + + + + + XR Chest AP Portable (12/10/2018 11:24 PM PDT) + + | Specimen | + + | | + + + + + | Impressions | Performed At | + + + | IMPRESSION: 1. Moderate right pleural effusion with adjacent | [facility] | | compressive atelectasis, increased from prior exam. 2. Cardiomegaly. | | | Signed by: Eliza Lewis, El Sign Date/Time: 12/10/2018 | | | 11:50 PM | | + + + + + + | Narrative | Performed At | + + + | CHEST PORTABLE ONE VIEW CLINICAL INFORMATION: Chest pain. | [facility] | | COMPARISON: XR CHEST AP PORTABLE (11/07/2018); US GUIDED | | | THORACENTESIS WO CHEST TUBE (11/07/2018); XR CHEST PA AND LATERAL | | | (11/07/2018); CT CHEST WITH CONTRAST (11/06/2018); FINDINGS: Dense | | | opacification of the right lung base. Poorly defined opacity in the | | | right lung base, likely representing atelectasis. Left lung is | | | clear. Blunting of the right costophrenic angle. No pneumothorax. | | | Cardiac silhouette is enlarged. | | + + + + + | Procedure Note | + + | Cedric, Rad Results In - 12/10/2018 11:54 PM PDT | | CHEST PORTABLE ONE VIEW | | | | CLINICAL INFORMATION: | | Chest pain. | | | | COMPARISON: | | XR CHEST AP PORTABLE (11/07/2018); US GUIDED THORACENTESIS WO CHEST TUBE | | (11/07/2018); XR CHEST PA AND LATERAL (11/07/2018); CT CHEST WITH CONTRAST | | (11/06/2018); | | | | FINDINGS: | | Dense opacification of the right lung base. Poorly defined opacity in | | the right lung base, likely representing atelectasis. Left lung is | | clear. Blunting of the right costophrenic angle. No pneumothorax. | | Cardiac silhouette is enlarged. | | | | IMPRESSION: | | IMPRESSION: | | 1. Moderate right pleural effusion with adjacent compressive | | atelectasis, increased from prior exam. | | 2. Cardiomegaly. | | | | | | | | | | Signed by: Eliza Lewis John | | Sign Date/Time: 12/10/2018 11:50 PM | + + + +---------+ + + | Performing | Address | City/State/Zipcode | Phone Number | | Organization | | | | + +---------+ + + | [facility] | | | | + +---------+ + + Troponin I (12/10/2018 11:02 PM PDT) + + + + + + | Component | Value | Ref Range | Performed | Pathologist | | | | | At | Signature | + + + + + + | Troponin I | 0.085 (H)Comment: 0.04 | 0.00 - 0.04 | [facility] | | | | ng/mL or less [...] at | | | | | | [facility];[address] [place] [address] | | | | | | [facility];[place] [address] | | | | + + + + + + + + | Specimen | + + | Blood | + + + + + + + | Performing | Address | City/State/Zipcode | Phone Number | | Organization | | | | + + + + + | [facility] | [address] | [place] [address] | [phone] | + + + + + Protime INR (12/10/2018 11:02 PM PDT) + + + + + + | Component | Value | Ref Range | Performed | Pathologist | | | | | At | Signature | + + + + + + | INR | 1.3Comment: REFERENCE | | [facility] | | | | RANGE:0.9 - [...] | | | | | performed at [facility];[address];[place] | | | | | | [address] | | | | + + + + + + + + | Specimen | + + | Blood | + + + + + + + | Performing | Address | City/State/Zipcode | Phone Number | | Organization | | | | + + + + + | [facility] | [address] | [place] [address] | [phone] | + + + + + CBC with Differential (12/10/2018 11:02 PM PDT) + + + + + + | Component | Value | Ref Range | Performed | Pathologist | | | | | At | Signature | + + + + + + | WBC | 9.27 | 3.80 - 11.00 | [facility] | | | | | K/uL | LABORATORY | | + + + + + + | RBC | 2.88 (L) | 3.70 - 5.10 | [facility] | | | | | M/uL | LABORATORY | | + + + + + + | Hemoglobin | 10.3 (L) | 11.3 - 15.5 | [facility] [...] MCHC | 33.3 | 32.0 - 35.5 | [facility] | | | | | g/dL | LABORATORY | | + + + + + + | RDW-SD | 63.4 (H) | 37 - 53 fl | [facility] | | | | | | LABORATORY | | + + + + + + | Platelet | 184 | 150 - 400 K/uL | [facility] | | | Count | | | LABORATORY | | + + + + + + | MPV | 9.7 | fl | [facility] | | | | | | LABORATORY | | + + + + + + | Diff Type | MANUAL | | [facility] | | | | | | LABORATORY | | + + + + + + | % Segmented | 75 | % | [facility] | | | | | | LABORATORY | | | Neutrophils | | | | | + + + + + + | % Bands | 8 | % | [facility] | | | | | | LABORATORY | | + + + + + + | % | 5 | % | [facility] | | | Lymphocytes | | | LABORATORY | | + + + + + + | % Monocytes | 7 | % | [facility] | | | | | | LABORATORY | | + + + + + + | Eosinophils | 5 | % | [facility] | | | % | | | LABORATORY | | + + + + + + | Neutrophils | 6.96 | 1.90 - 7.40 | [facility] | | | , Absolute | | K/uL | LABORATORY | | + + + + + + | Absolute | 0.74 (H) | 0.00 - 0.20 | [facility] | | | Band | | K/uL | LABORATORY | | | Neutrophils | | | | | + + + + + + | Absolute | 0.46 (L) | 1.00 - 3.90 | [facility] | | | Lymphocytes | | K/uL | LABORATORY | | + + + + + + | Absolute | 0.65 | 0.00 - 0.80 | [facility] | | | Monocytes | | K/uL | LABORATORY | | + + + + + + | Eosinophils | 0.46 | 0.00 - 0.50 | [facility] | | | , Absolute | | K/uL | LABORATORY | | + + + + + + | Platelet | ADEQUATE | | [facility] | | | Estimate | | | LABORATORY | | + + + + + + | RBC | 2+Comment: | | [facility] | | | Morphology | MACRO2+ANISONORMAL PLT | | LABORATORY | | | | MORPHTesting performed | | | | | | at [facility];[address];[place] [address] | | | | | |NORMAL PLT MORPH | | | | | |Testing performed at [facility];[address];[place] [address] | | | | | | | | | | + + + + + + + + | Specimen | + + | Blood | + + + + + + + | Performing | Address | City/State/Zipcode | Phone Number | | Organization | | | | + + + + + | [facility] | [address] | [place] [address] | [phone] | + + + + + Phosphorus (12/10/2018 11:02 PM PDT) + + + + + + | Component | Value | Ref Range | Performed | Pathologist | | | | | At | Signature | + + + + + + | Phosphorus | 8.9 (H)Comment: Testing | 2.3 - 4.8 mg/dL | [facility] | | | | performed at [facility];[address] | | LABORATORY | | | | [address];[place], [place] | | | | | | [address] | | | | + + + + + + + + | Specimen | + + | Blood | + + + + + + + | Performing | Address | City/State/Zipcode | Phone Number | | Organization | | | | + + + + + | [facility] | [address] | [place] [address] | [phone] | + + + + + Magnesium (12/10/2018 11:02 PM PDT) + + + + + + | Component | Value | Ref Range | Performed | Pathologist | | | | | At | Signature | + + + + + + | Magnesium | 2.2Comment: Testing | 1.7 - 2.4 mg/dL | [facility] | | | | performed at [facility];[address] | | LABORATORY | | | | [address];[place], [place] | | | | | | [address] | | | | + + + + + + + + | Specimen | + + | Blood | + + + + + + + | Performing | Address | City/State/Zipcode | Phone Number | | Organization | | | | + + + + + | [facility] | [address] | [place] [address] | [phone] | + + + + + Comprehensive Metabolic Panel (12/10/2018 11:02 PM PDT) + + + [...] | LABORATORY | | | | RESULTS VERIFIEDSHRICHARDA | | | | | | RN [...] 22 | 10 - 65 U/L | [facility] | | | | | | LABORATORY | | + + + + + + | Estimated | 3 (L)Comment: GFR <60: | >60 | [facility] | | | GFR | CHRONIC [...] | | | | | performed at [facility] | | | | | | [facility];[place], [place] | | | | | | [address] | | | | + + + + + + + + | Specimen | + + | Blood | + + + + + + + | Performing | Address | City/State/Zipcode | Phone Number | | Organization | | | | + + + + + | [facility] | [address] | [place] [address] | [phone] | + + + + + ECG 12 lead (12/10/2018 10:14 PM PDT) + + + + + + | Component | Value | Ref Range | Performed | Pathologist | | | | | At | Signature | + + + + + + | VENTRICULAR | 127 | BPM | [facility] | | | RATE EKG | | | | | + + + + + + | ATRIAL RATE | 127 | BPM | [facility] | | + + + + + + | P-R | 152 | ms | [facility] | | | INTERVAL | | | | | + + + + + + | QRS | 90 | ms | [facility] | | | DURATION | | | | | + + + + + + | Q-T | 296 | ms | [facility] | | | INTERVAL | | | | | + + + + + + | Q-T | 430 | ms | [facility] | | | INTERVAL | | | | | | (CORRECTED) | | | | | + + + + + + | P WAVE AXIS | 11 | degrees | [facility] | | + + + + + + | QRS AXIS | -61 | degrees | [facility] | | + + + + + + | T AXIS | 67 | degrees | [facility] | | + + + + + + | INTERPRETAT | Sinus tachycardiaLeft | | [facility] | | | ION TEXT | axis deviationAbnormal | | | | | | ECGWhen compared with | | | | | | ECG of 07-NOV-2018 | | | | | | 08:03,Vent. rate has | | | | | | increased BY 57 BPMQRS | | | | | | axis Shifted | | | | | | leftNonspecific T wave | | | | | | abnormality no longer | | | | | | evident in Inferior | | | | | | leadsT wave inversion no | | | | | | longer evident in | | | | [...] | | | | | ONLY, -COMPUTER (255), | | | | | | department editor Daniela Luciano | | | | | | (18) on 12/11/2018 | | | | | | 2:07:43 PM | | | | + + [...] | Diagnosis | + + | Acute hypoxemic respiratory failure (HCC) - Primary | + + | Sepsis, due to unspecified organism, unspecified whether acute organ dysfunction | | present (HCC) | + + | Pneumonia of right lower lobe due to infectious organism (HCC) | + + | Hypoxia Hypoxemia | + + | Hypervolemia, unspecified hypervolemia type | + + | ESRD on dialysis (HCC) End stage renal disease | + + | Hyperkalemia Hyperpotassemia | + + | Acute on chronic respiratory failure with hypoxia and hypercapnia (HCC) | + + | Acute respiratory failure with hypoxia (HCC) Acute respiratory failure | + + | Anemia in ESRD (end-stage renal disease) (HCC) Anemia in chronic kidney disease | + + | At high risk for electrolyte imbalance | + + | Awaiting organ transplant status | + + | Chronic 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) Chronic combined systolic | | and diastolic heart failure | + + | Chronic right-sided heart failure (HCC) Congestive heart failure, unspecified | + + | Dilated cardiomyopathy (HCC) Other primary cardiomyopathies | + + | ESRD on hemodialysis (HCC) End stage renal disease | + + | History of Henoch-Schonlein purpura Personal history of diseases of skin and | | subcutaneous tissue | + + | History of peritonitis Personal history of other specified diseases | + + | Hyperphosphatemia Disorders of phosphorus metabolism | + + | Non-cardiogenic pulmonary edema Pulmonary congestion and hypostasis | + + | Non-compliance Personal history of noncompliance with medical treatment, presenting | | hazards to health | + + | Non-rheumatic mitral regurgitation | + + | Non-rheumatic tricuspid valve insufficiency Tricuspid valve disorders, specified as | | nonrheumatic | + + | Other ascites | + + | Pericardial effusion without cardiac tamponade | + + | Pulmonary edema with congestive heart failure with reduced left ventricular function | | (HCC) Congestive heart failure, unspecified | + + | Moderate to severe pulmonary hypertension (HCC) Other chronic pulmonary heart | | diseases | + + | Low grade fever Fever, unspecified | + + | Noncompliance of patient with renal dialysis (HCC) Noncompliance with renal dialysis | + + | Pleural effusion, right Unspecified pleural effusion | + + | Gram-positive bacteremia Bacteremia | + + | Secondary hyperparathyroidism (HCC) Secondary hyperparathyroidism (of renal origin) | + + | Troponin I above reference range Other abnormal blood chemistry | + + | Pleural effusion, not elsewhere classified | + + | Bacteremia due to Gram-positive bacteria Bacteremia | + + documented in this encounter Administered Medications + +--------+---------+------+------+------+ | Medication Order | MAR | Action | Dose | Rate | Site | | | Action | Date | | | | + +--------+---------+------+------+------+ + +---+ | albumin 25% IVPB 25 g 25 g, | | | Intravenous, Administer over 60 | | | Minutes, DIALYSIS - PRN, | | | Hypotension, Starting 12/11/18 | | | at 0937, Treatment date(s): | | | 12/11/2018, For BP less than 100 | | | mm Hg. DIALYSIS USE ONLY - | | | DISCONTINUE AFTER DIALYSIS | | | THERAPY IS COMPLETE, Dialysis | | + +---+ | | | + +---+ + +---------+ +--------+-------+---+ | azithromycin (ZITHROMAX) 500 mg | New Bag | 12/12/19 | 500 mg | 250 | | | in sodium chloride 0.9% 250 mL | | 19 2:20 | | mL/hr | | | IVPB 500 mg, Intravenous, | | AM PDT | | | | | Administer over 60 Minutes, ONCE, | | | | | | | 12/11/18 at 0155, For 1 dose, | | | | | | | Activate system and mix before | | | | | | | use., Indications: Community | | | | | | | Acquired Pneumonia | | | | | | + +---------+ +--------+-------+---+ +---+---+ | | | +---+---+ + +---------+ +-----+ +---+ | calcium gluconate in saline 1 | New Bag | 12/12/19 | 1 g | 50 mL/hr | | | g/50 mL IVPB 1 g 1 g, | | 19 1:07 | | | | | Intravenous, Administer over 60 | | AM PDT | | | | | Minutes, ONCE, 12/11/18 at | | | | | | | 0055, For 1 dose | | | | | | + +---------+ +-----+ +---+ +---+---+ | | | +---+---+ + +---------+ +-----+ +---+ | calcium gluconate in saline 1 | New Bag | 12/12/19 | 1 g | 50 mL/hr | | | g/50 mL IVPB 1 g 1 g, | | 19 8:55 | | | | | Intravenous, Administer over 60 | | AM PDT | | | | | Minutes, ONCE, Mon12/11/18 at | | | | | | | 0845, For 1 dose | | | | | | + +---------+ +-----+ +---+ +---+---+ | | | +---+---+ + +-------+ +-------+---+---+ | clopidogrel (PLAVIX) tablet 75 | Given | 12/15/19 | 75 mg | | | | mg 75 mg, Oral, DAILY, First | | 19 11:42 | | | | | dose on Mon12/11/18 at 0900 | | AM PDT | | | | + +-------+ +-------+---+---+ +-------+ +-------+---+---+ | Given | 12/14/19 | 75 mg | | | | | 19 11:22 | | | | | | AM PDT | | | | +-------+ +-------+---+---+ | Given | 12/13/19 | 75 mg | | | | | 19 1:49 | | | | | | PM PDT | | | | +-------+ +-------+---+---+ +---+---+ | | | +---+---+ + +-------+ +------+---+---+ | dextrose 50% injection 25 g 25 | Given | 12/12/19 | 25 g | | | | g, Intravenous, ONCE, Tue | | 19 8:33 | | | | | 12/11/18 at 0815, For 1 dose | | AM PDT | | | | + +-------+ +------+---+---+ +---+---+ | | | +---+---+ + +-------+ +------+---+---+ | dextrose 50% injection 25 g 25 | Given | 12/12/19 | 25 g | | | | g, Intravenous, ONCE, Tue | | 19 8:33 | | | | | 12/11/18 at 0815, For 1 dose | | AM PDT | | | | + +-------+ +------+---+---+ +---+---+ | | | +---+---+ + +-------+ +---------+---+---+ | epoetin jenna-epbx (RETACRIT) | Given | 12/12/19 | 10,000 | | | | 10,000 units/mL injection 10,000 | | 19 11:45 | Units | | | | Units 10,000 Units, Intravenous, | | AM PDT | | | | | WITH EACH DIALYSIS, Starting Tue | | | | | | | 12/11/18 at 1030, Keep in | | | | | | | refrigerator. Do not shake., | | | | | | | ESRD-related (i.e. dialysis) | | | | | | | indication? Yes, Dialysis | | | | | | + +-------+ +---------+---+---+ +---+---+ | | | +---+---+ + +---------+ + +-------+---+ | heparin (dialysis) 1,000 | New Bag | 12/12/19 | 400 | 0.4 | | | units/mL infusion 400 Units/hr | | 19 10:18 | Units/hr | mL/hr | | | (0.4 mL/hr), at 0.4 mL/hr, | | AM PDT | | | | | Intravenous, DIALYSIS - | | | | | | | CONTINUOUS, Starting 12/11/18 | | | | | | | at 1000, DIALYSIS USE ONLY - | | | | | | | DISCONTINUE AFTER DIALYSIS IS | | | | | | | COMPLETE, Treatment date(s): | | | | | | | 12/11/2018, Dialysis | | | | | | + +---------+ + +-------+---+ +---+---+ | | | +---+---+ + +-------+ +--------+---+---+ | heparin (dialysis) 1,000 | Given | 12/12/19 | 3,000 | | | | units/mL injection 3,000 Units | | 19 10:00 | Units | | | | 3,000 Units, Intravenous, WITH | | AM PDT | | | | | EACH DIALYSIS, Starting Tue | | | | | | | 12/11/18 at 0937, DIALYSIS USE | | | | | | | ONLY - DISCONTINUE AFTER DIALYSIS | | | | | | | IS COMPLETE, Treatment date(s): | | | | | | | 12/11/2018, Dialysis | | | | | | + +-------+ +--------+---+---+ +---+---+ | | | +---+---+ + +-------+ +--------+---+ + | heparin 1,000 units/mL | Given | 12/13/19 | 3,000 | | Left Arm | | injection 3,000 Units 3,000 | | 19 8:02 | Units | | | | Units, Intravenous, DIALYSIS - | | AM PDT | | | | | ONCE, 12/12/18 at 0800, For 1 | | | | | | | dose, DIALYSIS USE ONLY - | | | | | | | DISCONTINUE AFTER DIALYSIS IS | | | | | | | COMPLETE, Treatment date(s): | | | | | | | 12/12/2018, Dialysis | | | | | | + +-------+ +--------+---+ + +---+---+ | | | +---+---+ + +---------+ + +-------+ + | heparin 1,000 units/mL | New Bag | 12/13/19 | 400 | 0.4 | Left Arm | | injection 400 Units/hr (0.4 | | 19 8:27 | Units/hr | mL/hr | | | mL/hr), Intravenous, at 0.4 | | AM PDT | | | | | mL/hr, DIALYSIS - CONTINUOUS, | | | | | | | Starting 12/12/18 at 0800, | | | | | | | DIALYSIS USE ONLY - DISCONTINUE | | | | | | | AFTER DIALYSIS IS COMPLETE, | | | | | | | Treatment date(s): 12/12/2018, | | | | | | | Dialysis | | | | | | + +---------+ + +-------+ + +---+---+ | | | +---+---+ + +-------+ +------+---+---+ | HYDROmorphone (DILAUDID) | Given | 12/11/19 | 1 mg | | | | injection 1 mg 1 mg, | | 19 11:48 | | | | | Intravenous, ONCE, 12/10/18 at | | PM PDT | | | | | 2345, For 1 dose | | | | | | + +-------+ +------+---+---+ +---+---+ | | | +---+---+ + +-------+ +---------+---+ + | influenza quadrivalent | Given | 12/12/19 | 0.5 mLs | | Deltoid- | | (FLUZONE, FLUARIX, AFLURIA | | 19 8:24 | | | Left | | QUADRIVALENT) vaccine injection | | PM PDT | | | | | (syringe) 0.5 mL 0.5 mL, | | | | | | | Intramuscular, ONE TIME VACCINE, | | | | | | | 12/11/18 at 1700, For 1 dose, | | | | | | | Give patient education | | | | | | | informationSujit Marti prior to use., | | | | | | | | | | | | | + +-------+ +---------+---+ + +---+---+ | | | +---+---+ + +-------+ + +---+---+ | insulin regular (humuLIN R, | Given | 12/12/19 | 10 Units | | | | novoLIN R) injection 10 Units 10 | | 19 8:33 | | | | | Units, Intravenous, ONCE, Tue | | AM PDT | | | | | 12/11/18 at 0830, For 1 dose, Only | | | | | | | for use with U-100 insulin | | | | | | | syringe., | | | | | | + +-------+ + +---+---+ +---+---+ | | | +---+---+ + +-------+ +-------+---+---+ | losartan (COZAAR) tablet 25 mg | Given | 12/15/19 | 25 mg | | | | 25 mg, Oral, DAILY, First dose | | 19 11:43 | | | | | (after last modification) on Wed | | AM PDT | | | | | 12/12/18 at 0900 | | | | | | + +-------+ +-------+---+---+ +-------+ +-------+---+---+ | Given | 12/14/19 | 25 mg | | | | | 19 11:22 | | | | | | AM PDT | | | | +-------+ +-------+---+---+ | Given | 12/13/19 | 25 mg | | | | | 19 1:47 | | | | | | PM PDT | | | | +-------+ +-------+---+---+ +---+---+ | | | +---+---+ + +-------+ +-------+---+---+ | losartan (COZAAR) tablet 25 mg | Given | 12/12/19 | 25 mg | | | | 25 mg, Oral, ONCE, 12/11/18 | | 19 3:38 | | | | | at 0845, For 1 dose | | PM PDT | | | | + +-------+ +-------+---+---+ +---+---+ | | | +---+---+ + +-------+ +-------+---+---+ | metoprolol succinate | Given | 12/15/19 | 50 mg | | | | (TOPROL-XL) ER tablet 50 mg 50 | | 19 11:42 | | | | | mg, Oral, DAILY, First dose | | AM PDT | | | | | (after last modification) on Mon | | | | | | | 12/12/18 at 0900, Tablet may be | | | | | | | cut where scored but do not | | | | | | | crush., | | | | | | + +-------+ +-------+---+---+ +-------+ +-------+---+---+ | Given | 12/14/19 | 50 mg | | | | | 19 11:22 | | | | | | AM PDT | | | | +-------+ +-------+---+---+ | Given | 12/13/19 | 50 mg | | | | | 19 1:50 | | | | | | PM PDT | | | | +-------+ +-------+---+---+ +---+---+ | | | +---+---+ + +-------+ +--------+---+---+ | nitroglycerin (NITROSTAT) SL | Given | 12/12/19 | 0.4 mg | | | | tablet 0.4 mg 0.4 mg, | | 19 12:26 | | | | | Sublingual, EVERY 5 MIN PRN, | | AM PDT | | | | | Chest pain, Starting 12/10/18 | | | | | | | at 2315, For 3 doses, Maximum of | | | | | | | 3 doses in 15 minutes., | | | | | | + +-------+ +--------+---+---+ +-------+ +--------+---+---+ | Given | 12/11/19 | 0.4 mg | | | | | 19 11:48 | | | | | | PM PDT | | | | +-------+ +--------+---+---+ +---+---+ | | | +---+---+ + +-------+ +------+---+---+ | ondansetron (ZOFRAN) injection | Given | 12/11/19 | 4 mg | | | | 4 mg 4 mg, Intravenous, ONCE, | | 19 11:44 | | | | | 12/10/18 at 2340, For 1 dose | | PM PDT | | | | + +-------+ +------+---+---+ +---+---+ | | | +---+---+ + +-------+ +------+---+---+ | ondansetron (ZOFRAN) injection | Given | 12/15/19 | 4 mg | | | | 4 mg 4 mg, Intravenous, EVERY 6 | | 19 10:45 | | | | | HOURS PRN, Nausea, Vomiting, | | AM PDT | | | | | Starting 10/8/19 at 0719 | | | | | | + +-------+ +------+---+---+ +-------+ +------+---+---+ | Given | 12/15/19 | 4 mg | | | | | 19 2:52 | | | | | | AM PDT | | | | +-------+ +------+---+---+ | Given | 12/14/19 | 4 mg | | | | | 19 5:47 | | | | | | PM PDT | | | | +-------+ +------+---+---+ +---+---+ | | | +---+---+ + +-------+ +-------+---+---+ | oxyCODONE (ROXICODONE) tablet | Given | 12/15/19 | 10 mg | | | | 5-10 mg 5-10 mg, Oral, EVERY 4 | | 19 11:41 | | | | | HOURS PRN, Pain, Starting Wed | | AM PDT | | | | | 12/12/18 at 0948 | | | | | | + +-------+ +-------+---+---+ +-------+ +-------+---+---+ | Given | 12/15/19 | 10 mg | | | | | 19 7:26 | | | | | | AM PDT | | | | +-------+ +-------+---+---+ | Given | 12/15/19 | 10 mg | | | | | 19 2:46 | | | | | | AM PDT | | | | +-------+ +-------+---+---+ +---+---+ | | | +---+---+ + +-------+ +-------+---+---+ | pantoprazole (PROTONIX) DR | Given | 12/15/19 | 40 mg | | | | tablet 40 mg 40 mg, Oral, DAILY | | 19 7:27 | | | | | BEFORE BREAKFAST, First dose on | | AM PDT | | | | | 12/11/18 at 0900, Do not cut | | | | | | | or crush., Indication: GERD | | | | | | + +-------+ +-------+---+---+ +-------+ +-------+---+---+ | Given | 12/14/19 | 40 mg | | | | | 19 6:21 | | | | | | AM PDT | | | | +-------+ +-------+---+---+ | Given | 12/13/19 | 40 mg | | | | | 19 5:45 | | | | | | AM PDT | | | | +-------+ +-------+---+---+ +---+---+ | | | +---+---+ + +---------+ +---------+-------+---+ | piperacillin-tazobactam (ZOSYN) | New Bag | 12/12/19 | 3.375 g | 100 | | | IVPB 3.375 g 3.375 g, | | 19 12:55 | | mL/hr | | | Intravenous, Administer over 0.5 | | AM PDT | | | | | Hours, ONCE, 12/11/18 at 0050, | | | | | | | For 1 dose, Dose changed to | | | | | | | 3.375 g per protocol for renal | | | | | | | patient., Extended-Infusion Zosyn | | | | | | | Protocol: infuse bolus over 30 | | | | | | | minutes, followed in 4 hours by | | | | | | | maintenance dosing., Keep in | | | | | | | refrigerator., Indications: | | | | | | | SEPSIS OF UNKNOWN ETIOLOGY | | | | | | + +---------+ +---------+-------+---+ +---+---+ | | | +---+---+ + +---------+ +---------+-------+---+ | piperacillin-tazobactam (ZOSYN) | New Bag | 12/12/19 | 3.375 g | 100 | | | IVPB 3.375 g 3.375 g, | | 19 8:26 | | mL/hr | | | Intravenous, Administer over 0.5 | | PM PDT | | | | | Hours, ONCE, 12/11/18 at 2000, | | | | | | | For 1 dose, Extended-Infusion | | | | | | | Zosyn Protocol: infuse bolus over | | | | | | | 30 minutes, followed in 4 hours | | | | | | | by maintenance dosing. Keep in | | | | | | | refrigerator., Indications: | | | | | | | SEPSIS OF UNKNOWN ETIOLOGY | | | | | | + +---------+ +---------+-------+---+ +---+---+ | | | +---+---+ + +---------+ +---------+-------+---+ | piperacillin-tazobactam (ZOSYN) | New Bag | 12/13/19 | 3.375 g | 12.5 | | | IVPB 3.375 g 3.375 g, | | 19 2:22 | | mL/hr | | | Intravenous, Administer over 4 | | PM PDT | | | | | Hours, EVERY 12 HOURS (2 times | | | | | | | per day), First dose on Mon | | | | | | | 12/12/18 at 0030, | | | | | | | Extended-Infusion Zosyn Protocol: | | | | | | | infuse over 4 hours when | | | | | | | maintenance dose has a frequency | | | | | | | of Q8H (or Q12H for renal dose | | | | | | | adjustment). Keep in | | | | | | | refrigerator., Indications: | | | | | | | SEPSIS OF UNKNOWN ETIOLOGY | | | | | | + +---------+ +---------+-------+---+ +---------+ +---------+-------+---+ | New Bag | 12/13/19 | 3.375 g | 12.5 | | | | 19 12:30 | | mL/hr | | | | AM PDT | | | | +---------+ +---------+-------+---+ +---+---+ | | | +---+---+ + +-------+ +---------+---+ + | promethazine (PHENERGAN) (IM | Given | 12/13/19 | 6.25 mg | | Deltoid- | | ONLY) injection 6.25 mg 6.25 mg, | | 19 11:49 | | | Right | | Intramuscular, ONCE, 12/12/18 | | PM PDT | | | | | at 2345, For 1 dose, Vesicant. | | | | | | | Give by deep IM injection into a | | | | | | | large muscle., | | | | | | + +-------+ +---------+---+ + +---+---+ | | | +---+---+ + +-------+ +---------+---+---+ | promethazine (PHENERGAN) (IV | Given | 12/12/19 | 12.5 mg | | | | ONLY) injection 12.5 mg 12.5 mg, | | 19 2:43 | | | | | Intravenous, ONCE, 12/11/18 | | AM PDT | | | | | at 0235, For 1 dose, Vesicant. | | | [...] | promethazine (PHENERGAN) (IV | Given | 12/14/19 | 6.25 mg | | | | ONLY) injection 6.25 mg 6.25 mg, | | 19 2:54 | | | | | Intravenous, ONCE, Little 12/13/18 | | PM PDT | | | | | at 1315, For 1 dose, Vesicant. | | | [...] | promethazine (PHENERGAN) (IV | Given | 12/14/19 | 6.25 mg | | | | ONLY) injection 6.25 mg 6.25 mg, | | 19 10:43 | | | | | Intravenous, ONCE, Little 12/13/18 | | PM PDT | | | | | at 2215, For 1 dose, Vesicant. | | | [...] | sevelamer carbonate (RENVELA) | Given | 12/15/19 | 1,600 mg | | | | tablet 1,600 mg 1,600 mg, Oral, | | 19 11:42 | | | | | 3 TIMES DAILY WITH MEALS, First | | AM PDT | | | | | dose on Mon12/11/18 at 0830, Do | | | | | | | not cut or crush tablets., | | | | | | + +-------+ + +---+---+ +-------+ + +---+---+ | Given | 12/14/19 | 1,600 mg | | | | | 19 5:42 | | | | | | PM PDT | | | | +-------+ + +---+---+ | Given | 12/14/19 | 1,600 mg | | | | | 19 11:22 | | | | | | AM PDT | | | | +-------+ + +---+---+ + +---+ | | | + +---+ | sodium chloride 0.9% (NS) bolus | | | 100 mL 100 mL, Intravenous, | | | Administer over 15 Minutes, | | | DIALYSIS - PRN, Hypotension, | | | Starting 12/11/18 at 0937, | | | Treatment date(s): 12/11/2018, For | | | BP less than [...] - PRN, Hypotension, | | | Starting 12/12/18 at 0734, | | | Treatment date(s): 12/12/2018, For | | | BP less than 100 mm Hg. Give | | | 100 mL bolus up to 1000 mL. | | | DIALYSIS USE ONLY - DISCONTINUE | | | AFTER DIALYSIS THERAPY IS | | | COMPLETE, Dialysis | | + +---+ | | | + +---+ + +-------+ +-------+---+---+ | traMADol (ULTRAM) tablet 50 mg | Given | 12/13/19 | 50 mg | | | | 50 mg, Oral, EVERY 12 HOURS PRN, | | 19 5:45 | | | | | Pain, Starting Mon12/11/18 at | | AM PDT | | | | | 1531 | | | | | | + +-------+ +-------+---+---+ +---+---+ | | | +---+---+ + +-------+ +-------+---+---+ | traMADol (ULTRAM) tablet 50 mg | Given | 12/12/19 | 50 mg | | | | 50 mg, Oral, ONCE, 12/11/18 | | 19 10:07 | | | | | at 2215, For 1 dose | | PM PDT | | | | + +-------+ +-------+---+---+ +---+---+ | | | +---+---+ + +---------+ +--------+-------+---+ | vancomycin in saline IVPB 1.75 | New Bag | 12/13/19 | 1.75 g | 250 | | | g 1.75 g (rounded from 1.7675 g | | 19 1:50 | | mL/hr | | | = 25 mg/kg | | PM PDT | | | | | 70.7 kg), Intravenous, | | | | | | | Administer over 120 Minutes, | | | | | | | ONCE, 12/12/18 at 0930, For 1 | | | | | | | dose, Keep in refrigerator., | | | | | | | Indications: Bacteremia | | | | | | + +---------+ +--------+-------+---+ +---+---+ | | | +---+---+ documented in this encounter
--- OUTSIDE RECORDS SUMMARY | ~2019-03-08 | XMS | Encounter Summary ---
Demographics + + + | Address | [address] | | | [place] [address] | + + + | Home Phone | | + + + | Preferred Language | Unknown | + + + | Marital Status | Single | + + + | Restorationism Affiliation | Unknown | + + + | Race | Unknown | + + + | Ethnic Group | Unknown | + + + Author + + + | Author | [facility] | | | and [place]ana | + + + | Organization | [facility] | | | [...] Team Providers + +------+ + | Care Automation Control Integrator Name | Role | Phone | + +------+ + PCP | Unavailable | + +------+ + Encounter Details +--------+ + + + + | Date | Type | Department | Care Team | Description | +--------+ + + + + | 02/12/ | Hospital | [facility] | Nereida Roberson | | | 2008 | Encounter | HOSPITAL EMERGENCY | MD [address] | | | | | [place] [address] [place] | | [address] [place], [place] | [place] [address] | | | | | [address] | [phone] | | | | | [phone] | | | +--------+ + + + [...] [address] | | | | | | [place] [address] | | | | | | [phone] | | | | | | | | +--------+---------+ + + + documented as of this encounter Visit Diagnoses Not on filedocumented in this encounter"
--- OUTSIDE RECORDS SUMMARY | ~2019-03-08 | XMS | Encounter Summary ---
Demographics + + + | Address | [address] | | | [place] [address] | + + + | Home Phone [...] | [facility] | | | and [place]ana | + + + | Organization | [facility] | | [...] Team Providers + +------+ + | Care Surgical Assistant Name | Role | Phone | [...] NEPHROLOGY [address] | M, DO [address] | | | | | [address] | [place] | | | | | [place], [place] | [place], [place] | | | | | [address] | [address] | | | | | [phone] | | | +--------+ + + + [...] [address] | | | | | | [place] [address] | | | | | | [phone] | | | | | | | | +--------+---------+ + + + documented as of this encounter Visit Diagnoses Not on filedocumented in this encounter"
--- OUTSIDE RECORDS SUMMARY | ~2019-03-08 | XMS | Encounter Summary ---
Demographics + + + | Address | [address] | | | [place] [address] | + + + | Home Phone [...] | | | | | [place] [address] | | + + + + + | Thania Mallory | ECON | [address] | | | | | [place] [address] | | + + + + + | Deidra Weldon | ECON | [address] | | | | | [place] | | | | | [address] | | + + + + + Care Team Providers + +------+ + | Care Community Health Outreach Worker Name | Role | Phone | [...] | | | [address] | [facility] | recommendations) | | | | [place]o [place], | [place], [place] | | | | | [place] [address] | [address] | | | | | [phone] | | | +--------+ + + + [...] Denise | | | | | | [place] | | | | | | [address] | | | | | | [phone] | | | | | | | | +--------+ + + + + documented as of this encounter Visit Diagnoses Not on filedocumented in this encounter"
--- OUTSIDE RECORDS SUMMARY | ~2019-03-08 | XMS | Encounter Summary ---
Demographics + + + | Address | [address] | | | [place] [address] | + + + | Home Phone [...] + + | Author | [facility] | | | and [place]ana | + + + | Organization | [facility] | | | and Josephana [...] Team Providers + +------+ + | Care Nurse Examiner Name | Role | Phone | + +------+ + PCP | Unavailable | + +------+ + Encounter Details +--------+ + + + + | Date | Type | Department | Care Team | Description | +--------+ + + + + | 06/12/ | Hospital | [facility] | Conversion | | | 2015 | Encounter | CENTER [facility] | Transaction, | | | | | CLINIC [address] | Provider Unknown | | | | | [place], [place] | [phone] | | | | | [address] | | | | | | [phone] | | | +--------+ + + + [...] [address] | | | | | | [place] [address] | | | | | | [phone] | | | | | | | [...] | | | Patient | performed at [facility];[address] | | LAB | | | | [address];[place], [place] | | | | | | [address] | | | | + + + [...] | | | | performed at [facility];[address] | | | | | | [address];[place], [place] | | | | | | [address] | | | | + + + [...] | | | | | [place] [address] | | | | + + + + + + | RED CELL | 3.83Comment: Testing | 3.70 - 5.10 | EXTERNAL | | | COUNT | performed at [facility], [address] | M/uL | LAB | | | | [address], | | | | | | [place] [address] | | | | + + + + + + | Hgb | 13.6Comment: Testing | 11.3 - 15.5 | EXTERNAL | | | | performed at [facility], [address] | g/dL | LAB | | | | [address], | | | | | | [place] [address] | | | | + + + + + + | Hematocrit, | 40.5Comment: Testing | 34.0 - 46.0 % | EXTERNAL | | | POC | performed at [facility], [address] | | LAB | | | | [address], | | | | | | [place] [address] | | | | + + + + + + | MCV | 105.8 (H)Comment: | 80.0 - 100.0 fl | EXTERNAL | | | | Testing performed at | | LAB | | | | [facility], [address] [facility] | | | | | | [place] | | | | | | [address] | | | | + + + + + + | MCH | 35.6 (H)Comment: Testing | 27.0 - 34.0 pg | EXTERNAL | | | | performed at [facility], [address] | | LAB | | | | [address], | | | | | | [place] [address] | | | | + + + + + + | MCHC | 33.6Comment: Testing | 32.0 - 35.5 | EXTERNAL | | | | performed at [facility], [address] | g/dL | LAB | | | | [address], | | | | | | [place] [address] | | | | + + + + + + | RDW-CV | 50.3Comment: Testing | 37 - 53 fl | EXTERNAL | | | | performed at [facility], [address] | | LAB | | | | [address], | | | | | | [place] [address] | | | | + + + + + + | Platelet | 170Comment: Testing | 150 - 400 K/uL | EXTERNAL | | | Count | performed at [facility], [address] | | LAB | | | Plasma | [address], | | | | | | [place] [address] | | | | + + + + + + | MPV | 9.5Comment: Testing | fl | EXTERNAL | | | | performed at [facility], [address] | | LAB | | | | [address], | | | | | | [place] [address] | | | | + + + + + + | Differentia | AUTOMATEDComment: | | EXTERNAL | | | l Type | Testing performed at | | LAB | | | | [facility], [address] [facility] | | | | | | [place] | | | | | | [address] | | | | + + + + + + | % Segmented | 61.53Comment: Testing | % | EXTERNAL | | | | performed at [facility], [address] | | LAB | | | Neutrophils | [address], | | | | | | [place] [address] | | | | + + + + + + | % | 26.38Comment: Testing | % | EXTERNAL | | | Lymphocytes | performed at [facility], [address] | | LAB | | | | [address], | | | | | | [place] [address] | | | | + + + + + + | % Monocytes | 8.30Comment: Testing | % | EXTERNAL | | | | performed at [facility], [address] | | LAB | | | | [address], | | | | | | [place] [address] | | | | + + + + + + | % | 3.19Comment: Testing | % | EXTERNAL | | | Eosinophils | performed at [facility], [address] | | LAB | | | | [address], | | | | | | [place] [address] | | | | + + + + + + | % Basophils | 0.60Comment: Testing | % | EXTERNAL | | | | performed at [facility], [address] | | LAB | | | | [address], | | | | | | [place] [address] | | | | + + + + + + | Absolute | 5.44Comment: Testing | 1.90 - 7.40 | EXTERNAL | | | Segmented | performed at [facility], [address] | K/uL | LAB | | | Neutrophils | [address], | | | | | | [place] [address] | | | | + + + + + + | Absolute | 2.33Comment: Testing | 1.00 - 3.90 | EXTERNAL | | | Lymphocytes | performed at [facility], [address] | K/uL | LAB | | | | [address], | | | | | | [place] [address] | | | | + + + + + + | Absolute | 0.74Comment: Testing | 0.00 - 0.80 | EXTERNAL | | | Monocytes | performed at [facility], [address] | K/uL | LAB | | | | [address], | | | | | | [place] [address] | | | | + + + + + + | Absolute | 0.28Comment: Testing | 0.00 - 0.50 | EXTERNAL | | | Eosinophils | performed at [facility], [address] | K/uL | LAB | | | | [address], | | | | | | [place] [address] | | | | + + + + + + | Absolute | 0.05Comment: Testing | 0.00 - 0.10 | EXTERNAL | | | Basophils | performed at [facility], [address] | K/uL | LAB | | | | [address], | | | | | | [place] [address] | | | | + + + [...] | | | | | [place] [address] | | | | + + + + + + | K | 3.8Comment: Testing | 3.5 - 4.9 | EXTERNAL | | | | performed at [facility], [address] | mmol/L | LAB | | | | [address], | | | | | | [place] [address] | | | | + + + + + + | Cl | 94 (L)Comment: Testing | 99 - 109 mmol/L | EXTERNAL | | | | performed at [facility], [address] | | LAB | | | | [address], | | | | | | [place] [address] | | | | + + + + + + | CO2 | 31Comment: Testing | 23 - 32 mmol/L | EXTERNAL | | | | performed at [facility], [address] | | LAB | | | | [address], | | | | | | [place] [address] | | | | + + + + + + | Anion Gap | 13Comment: Testing | 5 - 20 mmol/L | EXTERNAL | | | | performed at [facility], [address] | | LAB | | | | [address], | | | | | | [place] [address] | | | | + + + + + + | Glucose, | 95Comment: Testing | 65 - 99 mg/dL | EXTERNAL | | | Fasting | performed at [facility], [address] | | LAB | | | | [address], | | | | | | [place] [address] | | | | + + + + + + | BUN | 40 (H)Comment: Testing | 8 - 25 mg/dL | EXTERNAL | | | | performed at [facility], [address] | | LAB | | | | [address], | | | | | | [place] [address] | | | | + + + + + + | Creatinine | 7.24 (H)Comment: Testing | 0.50 - 1.00 | EXTERNAL | | | | performed at [facility], [address] | mg/dL | LAB | | | | [address], | | | | | | [place] [address] | | | | + + + + + + | BUN/Creatin | 6Comment: Testing | | EXTERNAL | | | ine Ratio | performed at [facility], [address] | | LAB | | | | [address], | | | | | | [place] [address] | | | | + + + + + + | Calcium | 10.2Comment: Testing | 8.5 - 10.5 | EXTERNAL | | | | performed at [facility], [address] | mg/dL | LAB | | | | [facility], | | | | | | [place] [address] | | | | + + + + + + | Estimated | CALCULATION NOT | mL/min/1.73m2 | EXTERNAL | | | GFR | PERFORMED. RESULT NOT | | LAB | | | | VALID IF AGE LT 20 | | | | | | YEARS.Comment: Testing | | | | | | performed at [facility], [address] | | | | | | [facility], | | | | | | [place] [address] | | | | + + + [...] EXTERNAL LAB | | Testing performed at [address];[place] [address] MRSA PCR | | | NEGATIVE Testing performed at | | | [address];[place] [address] | | + + + + +---------+ + + | Performing | Address | City/State/Zipcode | Phone Number | | Organization | | | | + +---------+ + + | EXTERNAL LAB | | | | + +---------+ + + documented in this encounter Visit Diagnoses Not on filedocumented in this encounter"
--- OUTSIDE RECORDS SUMMARY | ~2019-03-08 | XMS | Encounter Summary ---
Demographics + + + | Address | [address] | | | [place] [address] | + + + | Home Phone [...] | | | | | [place] [address] | | + + + + + | Thania Mallory | ECON | [address] | | | | | [place] [address] | | + + + + + | Deidra Weldon | ECON | [address] | | | | | [place] | | | | | [address] | | + + + + + Care Team Providers + +------+ + | Care Warranty Administrator Name | Role | Phone | [...] [address] | | | | | | [address] | [place] | | | | | | [address] | [place], [place] | | | | | | [place] | [address] | | | | | | [place] | Phone: | | | | | | [address] | [phone] | | | | | | Phone: | | | | | | | [phone] | | | | | | | Fax: | | | | | | | [phone] | | +--------+--------+ + + + + Encounter Details +--------+---------+ + + + | Date | Type | Department | Care Team | Description | +--------+---------+ + + + | 05/11/ | Office | Specialty Clinics | Sudhakar Joy | [facility] | | 2015 | Visit | at [facility] [address] | [address] | [facility] | | | [place] Mailcode: | [address] | purpura) nephritis | | | | [facility] [address] | [place], [place] | (Primary Dx); 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
--- OUTSIDE RECORDS SUMMARY | ~2019-03-08 | XMS | Encounter Summary ---
Demographics + + + | Address | [address] | | | [place] [address] | + + + | Home Phone [...] | [facility] | | | and [place] | + + + | Organization | [facility] | | | and [...] Providers + +------+ + | Care Medical Insurance Claims Specialist Name | Role | Phone | + +------+ + | Jonathan Alonso MD | PCP | | + +------+ + Reason for Visit + + + | Reason | Comments | + + + | Medication Problem | CMN O2 | + + + Encounter Details +--------+ + + + + | Date | Type | Department | Care Team | Description | +--------+ + + + + | 11/15/ | Telephone | [facility] | George Torres RN | Medication Problem | | 2019 | | [address] | | (CMN O2) | | | | [place] | | | | | | [address] | | | | | | [phone] | | | +--------+ + + + [...] [place] | | | | | | [place] [address] | | | | | | [phone] | | | | | | | | +--------+---------+ + + + documented as of this encounter Visit Diagnoses Not on filedocumented in this encounter"
--- OUTSIDE RECORDS SUMMARY | ~2019-03-08 | XMS | Encounter Summary ---
Demographics + + + | Address | [address] | | | [place] [address] | + + + | Home Phone [...] | Author | [facility] | | | and Josephana | + + + | Organization | [facility] [...] Team Providers + +------+ + | Care Tmh Teacher Name | Role | Phone | [...] Refill | [facility] [place] | Daniela Ibarra W, | Medication Refill | | 2015 | | NEPHROLOGY [address] | [address] | | | | | [address] | [address] [place] | | | | | [place], [place] | [place] [address] | | | | | [address] | [phone] | | | | | [phone] | | | +--------+--------+ + + + [...] | | | | | [place] [address] | | | | | | [phone] | | | | | | | | +--------+---------+ + + + documented as of this encounter Visit Diagnoses Not on filedocumented in this encounter"
--- OUTSIDE RECORDS SUMMARY | ~2019-03-08 | XMS | Encounter Summary ---
Demographics + + + | Address | [address] | | | [place] [address] | + + + | Home Phone [...] | | | | | [place] [address] | | + + + + + | Thania Mallory | ECON | [address] | | | | | [place] [address] | | + + + + + | Deidra Weldon | ECON | [address] | | | | | [place] | | | | | [address] | | + + + + + Care Team Providers + +------+ + | Care Military Pilot Name | Role | Phone | [...] on | | | | [place], | [place], [place] | [place] | | | | [place] [address] | [address] | care plan) | | | | [phone] | | | +--------+ + + + [...] Denise | | | | | | [place] | | | | | | [address] | | | | | | [phone] | | | | | | | | +--------+ + + + + documented as of this encounter Visit Diagnoses Not on filedocumented in this encounter"
--- OUTSIDE RECORDS SUMMARY | ~2019-03-08 | XMS | Encounter Summary ---
Demographics + + + | Address | [address] | | | [place] [address] | + + + | Home Phone [...] | | | | | [place] [address] | | + + + + + | Thania Mallory | ECON | [address] | | | | | [place] [address] | | + + + + + | Deidra Weldon | ECON | [address] | | | | | [place] | | | | | [address] | | + + + + + Care Team Providers + +------+ + | Care Teacher Aide Clerical Name | Role | Phone | + [...] | | | | | Caro [place], | | | | | | [place] [address] | | | +--------+ + + + [...] Denise | | | | | | [place], [place] | | | | | | [address] | | | | | | [phone] | | | | | | | [...] DANILO - | [address], | [place] [address] | | | IMMUNOGENETICS/TRANS | [address] | | | | [facility] | | | | + + + + + documented in this encounter Visit Diagnoses Not on filedocumented in this encounter"
--- OUTSIDE RECORDS SUMMARY | ~2019-03-08 | XMS | Encounter Summary ---
Demographics + + + | Address | [address] | | | [place] [address] | + + + | Home Phone [...] | Author | [facility] | | | and Josephana | + + + | Organization | [facility] [...] Providers + +------+ + | Care Video Engineer Name | Role | Phone | [...] | stage renal | [address] | [address] [place] [address] | | | | | disease) | Shun Griffin | [place] | | | | | ([facility]) | [address] | [address] [place] | | | | | Anemia in | [place], [place] | [place] | | | | | ESRD | [address] | [address] Phone: | | | | | (end-stage | Phone: | [phone] | | | | | renal | [phone] | Fax: | | | | | disease) | Fax: | [phone] | | | | | ([facility]) | [phone] | | | | | | Procedures | | | | | | | IA OFFICE | | | | | | | OUTPATIENT | | | | | | | VISIT 25 | | | | | | | MINUTES | | | +--------+--------+ + + + + Encounter Details +--------+ + + + + | Date | Type | Department | Care Team | Description | +--------+ + + + + | 08/29/ | Off-Site | [facility] [place] | Jorje Camp | ESRD (end stage | | 2017 | Visit | NEPHROLOGY [address] | M, DO [address] | renal disease) ([facility]) | | | | [address] | [place], [address] | (Primary Dx) | | | | [place], [place] | [place], [place] | | | | | [address] | [address] | | | | | [phone] | | | +--------+ + + + [...] + + + | Blood Pressure | 133/68 | 08/29/2016 4:26 PM | | | | | PDT | | + + + + + | Pulse | - | - | | + + + + + | Temperature | 36.7 C (98.1 F) | 08/29/2016 4:26 PM | | | | | PDT [...] encounter Progress Notes Jorje Camp DO - 08/29/2016 10:00 AM PDT Subjective: DIALYSIS NOTE Patient ID: Dara Weldon is a 21 y.o. female. HPI Comments: Dara is seen on the MWF shift at [place]. 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 Sadly, efforts at counseling by multiple caregivers including Dr. Ibarra, myself, Staff Nurs es, and Clinic ENGINEERING PATTERNMAKER have failed to reach her. She continues to have this regard and poor ins ight into her chronic conditions especially her renal diet and hyperphosphatemia. Unfortuna tely, there are periods when she attends only one treatment/week. She has been clearly advi sed of her increased risk for metabolic bone disease as well as short-term morbidity, mortal ity. She's been offered behavioral medicine counseling but declines. Outpatient Prescriptions Marked as Taking for the 08/29/16 encounter (Off-Site Visit) with Camille Camp DO [...] 11 doxercalciferol (HECTOROL) 2 mcg/mL injection Inject 2.5 mcg into the vein Three times a week. Per dialysis clinic protocol epoetin jenna (EPOGEN,PROCRIT) 3,000 units/mL injection Inject 5,000 Units under the ski n Three times a week. iron sucrose (VENOFER) 20 mg/mL injection Inject [...] tapes Morphine Itching and Rash Objective: BP 133/68 | Temp 36.7 C (98.1 F) EDW 97.5 kg Physical Exam Heart: Regular rate and rhythm with no S3, S4, murmur or rub. Lungs: CTA bilaterally. No rales or wheezes. Abdomen: Soft, obese, nontender, normoactive bowel sounds.. Extremities: No clubbing, cyanosis, or edema. LAB: BUN 80, Cr 14.8, K+ 4.6, HCO3 19, Ca++ 9.5, phosphorus 10.3, albumin 3.5, PTH 2100, H b 11.7, eKT/V = 1.48. Assessment: 1. ESRD-- basically her Rx is stable when she attends, however she is chronically under d ialyzed due to absenteeism from prescribed treatments. 2. Hypertension-- fairly good control. 3. SHPTH-- poor control. Her hyperphosphatemia appears to be worsening and she declines a 3 gland parathyroidectomy. I told her to contact my office or Dr. Ibarra, if she should change her mind. I emphasized the need for her to take Sensipar to combat this. 4. Nutrition-- serum albumin is drifting downward. No inflammation on PE. 6. Anemia-- Hb is above target. Need to hold EPO until Hb is <11.0 g/dl. Will recheck he r complete iron profile next month. 7. Centripetal obesity--see above. 8. 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 9. Transplantation-- she appears to lack the maturity level or insight into her CKD and gl obal health to be successful at this? She would be at significant risk for allograft loss, in her current frame of mind, I am afraid. Plan: 1. Again, she has been advised of potential risks of vascular disease, morbidity due to sk ips treatments and persistent unrelenting hyperphosphatemia. 2. Again, I left word with her that if she desired to me with a counselor that could be pr ovided very easily. 3. Will hold EPO until Hb is closer to 10-11 g/dl. 4. Will recheck her in 2 weeks. : Potter Fina Joy M.D., Pediatric Nephrology, [facility] documented in t his encounter Plan of Treatment +--------+---------+ + + + | Date | Type | Specialty | Care Team | Description | +--------+---------+ + + + | 04/18/ | Office | Pulmonology | Denny Alexander | | | 2019 | Visit | | Deny Briggs MD [address] | | | | | | [address] | | | | | | [place] [address] | | | | | | [phone] | | | | | | | | +--------+---------+ + + + documented as of this encounter Visit Diagnoses + + | Diagnosis | + + | ESRD (end stage renal disease) (HCC) - Primary End stage renal disease | + + documented in this encounter"
--- OUTSIDE RECORDS SUMMARY | ~2019-03-08 | XMS | Encounter Summary ---
Demographics + + + | Address | [address] | | | [place] [address] | + + + | Home Phone [...] | | | | | [place] [address] | | + + + + + | Thania Mallory | ECON | [address] | | | | | [place] [address] | | + + + + + | Deidra Weldon | ECON | [address] | | | | | [place] | | | | | [address] | | + + + + + Care Team Providers + +------+ + | Care Technical Services Manager Name | Role | Phone | [...] | | | | | [place], | | | | | | [place] [address] | | | +--------+ + + + [...] Denise | | | | | | [place], [place] | | | | | | [address] | | | | | | [phone] | | | | | | | [...] DANILO - | [address], | [place] [address] | | | IMMUNOGENETICS/TRANS | [address] | | | | [facility] | | | | + + + + + documented in this encounter Visit Diagnoses Not on filedocumented in this encounter"
--- OUTSIDE RECORDS SUMMARY | ~2019-03-08 | XMS | Encounter Summary ---
Demographics + + + | Address | [address] | | | [place] [address] | + + + | Home Phone [...] Author | [facility] | | | and Josephana | + + + | Organization | [facility] | | | and Josephana [...] Team Providers + +------+ + | Care Coal And Ash Supervisor Name | Role | Phone | [...] NEPHROLOGY [address] | M, DO [address] | | | | | [address] | [place], [address] | | | | | [place], [place] | [place], [place] | | | | | [address] | [address] | | | | | [phone] | | | +--------+ + + + [...] of this encounter Progress Marilyn Jennings - 02/13/2017 8:57 AM PSTOutside record: New patient starter program from [facility], dos: 02/12/17. [facility].Electronically signed by Marilyn Palumbo at 017 8:58 [...] DAV[place]SON | | | | | | [place] [address] | | | | | | [phone] | | | | | | | | +--------+---------+ + + + documented as of this encounter Visit Diagnoses Not on filedocumented in this encounter"
--- OUTSIDE RECORDS SUMMARY | ~2019-03-08 | XMS | Encounter Summary ---
Demographics + + + | Address | [address] | | | [place] [address] | + + + | Home Phone [...] | | | | | [place] [address] | | + + + + + | Thania Mallory | ECON | [address] | | | | | [place] [address] | | + + + + + | Deidra Weldon | ECON | [address] | | | | | [place] | | | | | [address] | | + + + + + Care Team Providers + +------+ + | Care Sewing Pattern Layout Technician Name | Role | Phone | [...] | | | [place], | [place] [address] | | | | | [place] [address] | [phone] | | | | | | | [...] Denise | | | | | | [place], [place] | | | | | | [address] | | | | | | [phone] | | | | | | | | +--------+ + + + + documented as of this encounter Visit Diagnoses Not on filedocumented in this encounter"
--- OUTSIDE RECORDS SUMMARY | ~2019-03-08 | XMS | Encounter Summary ---
Demographics + + + | Address | [address] | | | [place] [address] | + + + | Home Phone [...] | | | | | [place] [address] | | + + + + + | Thania Mallory | ECON | [address] | | | | | [place] [address] | | + + + + + | Deidra Weldon | ECON | [address] | | | | | [place] | | | | | [address] | | + + + + + Care Team Providers + +------+ + | Care Combat Control Manager Name | Role | Phone [...] Kelsi Martinez, | Other (PRA?) | | 2014 | | Transplant Services | RN [address] | | | | | [address] [facility] | [facility] | | | | | [address] [facility], | [place], [place] | | | | | [place] [address] | [address] | | | | | [phone] | | | +--------+ + + + [...] Denise | | | | | | [place] | | | | | | [address] | | | | | | [phone] | | | | | | | | +--------+ + + + + documented as of this encounter Visit Diagnoses Not on filedocumented in this encounter"
--- OUTSIDE RECORDS SUMMARY | ~2019-03-08 | XMS | Encounter Summary ---
Demographics + + + | Address | [address] | | | [place] [address] | + + + | Home Phone [...] | Author | [facility] | | | and Josephana | + + + | Organization | [facility] | | | and [...] Providers + +------+ + | Care Cloth Shrinking Supervisor Name | Role | Phone | + +------+ + | Jonathan Alonso MD | PCP | | + +------+ + Encounter Details +--------+ + + + + | Date | Type | Department | Care Team | Description | +--------+ + + + + | 04/10/ | Abstract | [facility] | Ed[facility] Pulido Samealeyda | | | 2019 | | [facility] | MD Linda [address] | | | | | KIDNEY TRANSPLANT | [address], | | | | | [address] [place] | [place] [address] | | | | | [address] [place], [place] | [phone] | | | | | [address] | | | | | | [phone] | | | +--------+ + + + [...] DAV[place]SON | | | | | | [place] [address] | | | | | | [phone] | | | | | | | | +--------+---------+ + + + documented as of this encounter Visit Diagnoses Not on filedocumented in this encounter"
--- OUTSIDE RECORDS SUMMARY | ~2019-03-08 | XMS | Encounter Summary ---
Demographics + + + | Address | [address] | | | [place] [address] | + + + | Home Phone [...] | Author | [facility] | | | and Josephana | + + + | Organization | [facility] | | | and [...] Team Providers + +------+ + | Care Heavy Equipment Operator Name | Role | Phone | + +------+ + | Jonathan Alonso MD | PCP | | + +------+ + Encounter Details +--------+ + + + + | Date | Type | Department | Care Team | Description | +--------+ + + + + | 10/17/ | Hospital | [facility] | Nikita, | ESRD (end stage | | 2019 - | Encounter | [facility] | MD [address] | renal disease) | | | | CARE FLOOR [address] | ([facility]); Dilated | | 10/22/ | | [address] | [place] [address] | cardiomyopathy | | 2019 | | [place], [place] | [phone] | ([facility]); | | | | [address] | | Non-cardiogenic | | | | [phone] | Gerber Pearson MD | pulmonary edema; | | | | | [address] | Anemia in ESRD | | | | | [place] [address] | (end-stage renal | | | | | [phone] | disease) ([facility]); | | | | | [...] failure | | | | | | ([facility]); At high risk | | [...] might be different fr om the original. [facility] Service: Hospitalist Physician Discharge Summary Patient ID: [...] is to follow up with her regular quantometer operator, Dr. Hurtado. DISCHARGE DIAGNOSES: 1. End-stage renal [...] Left; Surgeon: Blake Chavarria MD ; Location: [facility] MAIN OR AV FISTULA REPAIR Left 03/07/2014 Procedure: AV FISTULA - GRAFT REPAIR/REVISION; Surgeon: Rik Simon MD; Location: [facility] OR; Service: Vascular; Laterality: Left; biopsy [...] - SUPERFICIALIZATION; Surgeon: Emanuel Simon MD; Location: [facility] MA[facility] OR; Service: Vascular; Laterality: Left; OTHER SURGICAL HISTORY Left 04/08/2014 AV FISTULA PLACEMENT - Procedure: AV FISTULA; Surgeon: Rik Simon MD; Location: [facility] OR; Service: Vascular; Laterality: Left; [...] have: Continued coughing Fever Date Last Reviewed: 02/04/201619995362-9806 [employer]. [address] [place] [address], [place] [address]. All righ ts reserved. This information is [...] by your healthcare provider Date Last Reviewed: 12/05/201519998621-4814 [employer]. [address] [place] [address], [place] [address]. All righ ts reserved. This information is [...] | | | | | renal disease) ([facility]) | protocol | | | [...] + + +---------+ + + | B Whthghj-D-Njshl | Take 1 tablet by | | [...] I have discussed the case with the CARPORT ERECTOR. I agree with his findings & documentation. [...] Carrasco MD - 10/21/2018 3:00 PM PDT [facility] Service: NEPHROLOGY Progress Note Dara Weldon 23 y.o. [id number] female Jonathan Alonso MD Hospital Day: [...] GRAFT REPAIR/REVISION; Surgeon: Rik Simon MD; Location: [facility] IN OR; Service: Vascular; Laterality: Left; biopsy of kidney age 10 DIALYSIS FISTULA CREATION 04/08/2014 Procedure: DIALYSIS CATHETER - INSERTION; Surgeon: Rik Simon MD; Location: [facility] MAIN OR ; Service: Vascular; Laterality: N/A; tunneled catheter.br hemodialysis catheter KIDNEY BIOPSY Left 2003 OTHER SURGICAL HISTORY LAPAROSCOPIC PERITONEAL DIALYSIS CATHETER INSERTION - x2 OTHER SURGICAL HISTORY Right 07/2013 LAPAROSCOPIC PERITONEAL DIALYSIS CATHETER INSERTION - current dialysis access MWF dialysis OTHER SURGICAL HISTORY Left 06/24/2014 SUPERFICIALIZATION OF AV FISTULA - Procedure: AV FISTULA - SUPERFICIALIZATION; Surgeon: Emanuel Simon MD; Location: [facility] MA[facility] OR; Service: Vascular; Laterality: Left; OTHER SURGICAL HISTORY Left 04/08/2014 AV FISTULA PLACEMENT - Procedure: AV FISTULA; Surgeon: Rik Simon MD; Location: [facility] OR; Service: Vascular; Laterality: Left; cephalic OTHER SURGICAL HISTORY Left 03/07/2014 DECLOT GRAFT - Procedure: GRAFT - DECLOT; Surgeon: Rik Simon MD; Location: [facility] MAIN OR ; Service: Vascular; Laterality: Left; [...] file Social History Narrative She lives in [facility]. She does not work. She [...] MR, severe TR.severe pulmonary hyperten arturo Chest c-rln-iwrswnoflcod with pulmonary edema and large right pleural [...] earlier and charting completed later Dictation software, [employer], used which may contain error for similar sounding words even af ter review. Personal communication requested for any clarification. Portions of my notes may have been carried over for continuity of care.Electronically ananth d by Antonio Benjamin MD at 10/21/2018 3:11 PM Gerber Fernandez MD - 10/21/2018 7:18 AM PD T [facility] Adult Hospitalist Progress Note Hospital Day: 4 [...] BUN 90 on admission -History of a [place] Schnlein purpura -Last hemodialysis approximately 2 weeks [...] PearsonCamille D - 10/20/2018 9:09 AM PDT [facility] Adult Hospitalist Progress Note Hospital Day: 3 [...] BUN 90 on admission -History of a [place] Schnlein purpura -Last hemodialysis approximately 2 weeks [...] [place] | | | | | | [place] [address] | | | | | | [phone] | | | | | | | [...] [place], | | | | | | [place] [address] | | | | + + + + + + + + | Specimen | + + | Blood | + + + + + + + | Performing | Address | City/State/Zipcode | Phone Number | | Organization | | | | + + + + + | [facility] | [address] | [place] [address] | [phone] | + + + + + Basic [...] | | | | | performed at [facility], [address] | | | | | | [facility], | | | | | | [place] [address] | | | | + + + + + + + + | Specimen | + + | Blood - Right upper | | arm structure (body | | structure) | + + + + + + + | Performing | Address | City/State/Zipcode | Phone Number | | Organization | | | | + + + + + | [facility] | [address] | [place] [address] | [phone] | + + + + + Basic [...] | | | | | performed at [facility], [address] | | | | | | [facility], | | | | | | [place] [address] | | | | + + + + + + + + | Specimen | + + | Blood - Right upper | | arm structure (body | | structure) | + + + + + + + | Performing | Address | City/State/Zipcode | Phone Number | | Organization | | | | + + + + + | [facility] | [address] | [place] [address] | [phone] | + + + + + Basic [...] | | | | | performed at [facility] | | | | | | [facility];[place], [place] | | | | | | [address] | | | | + + + + + + + + | Specimen | + + | Blood - Right upper | | arm structure (body | | structure) | + + + + + + + | Performing | Address | City/State/Zipcode | Phone Number | | Organization | | | | + + + + + | [facility] | [address] | [place] [address] | [phone] | + + + + + documented in this encounter Visit Diagnoses + + | Diagnosis | + + | Non-cardiogenic pulmonary edema - Primary Pulmonary congestion and hypostasis | + + | ESRD (end stage renal disease) ([facility]) End stage renal disease | + + | Dilated cardiomyopathy ([facility]) Other primary cardiomyopathies | + + | Anemia in ESRD (end-stage renal disease) ([facility]) Anemia in chronic kidney disease [...] | | | for platelets less than [address], | | + +---+ | | | [...]
--- OUTSIDE RECORDS SUMMARY | ~2019-03-08 | XMS | Encounter Summary ---
Demographics + + + | Address | [address] | | | [place] [address] | + + + | Home Phone [...] | | | | | [place] [address] | | + + + + + | Thania Mallory | ECON | [address] | | | | | [place] [address] | | + + + + + | Deidra Weldon | ECON | [address] | | | | | [place] | | | | | [address] | | + + + + + Care Team Providers + +------+ + | Care Liquor Gallery Operator Name | Role | Phone | [...] Update | | | | Alexander | [facility] | | | | | [facility] | [place], [place] | | | | | [address] [facility] | [address] | | | | | Mailcode: DCH7 | | | | | | Alexander | | | | | | [place], [place] | | | | | | [address] | | | | | | [phone] | | | +--------+ + + + [...] [place] | | | | | | [address] | | | | | | [phone] | | | | | | | | +--------+ + + + + documented as of this encounter Visit Diagnoses Not on filedocumented in this encounter"
--- OUTSIDE RECORDS SUMMARY | ~2019-03-08 | XMS | Encounter Summary ---
Demographics + + + | Address | [address] | | | [place] [address] | + + + | Home Phone [...] | | | | | [place] [address] | | + + + + + | Thania Mallory | ECON | [address] | | | | | [place] [address] | | + + + + + | Deidra Welodn | ECON | [address] | | | | | [place] | | | | | [address] | | + + + + + Care Team Providers + +------+ + | Care Drilling Foreman Name | Role | Phone | [...] | 2013 | | Transplant Services | COMMERCIAL GLAZIER [place], [place] | Update | | | | [address] | [address] | | | | | Caro [place], | | | | | | [place] [address] | | | | | | [phone] | | | +--------+ + + + [...] Denise | | | | | | [place], [place] | | | | | | [address] | | | | | | [phone] | | | | | | | | +--------+ + + + + documented as of this encounter Visit Diagnoses Not on filedocumented in this encounter"
--- OUTSIDE RECORDS SUMMARY | ~2019-03-08 | XMS | Encounter Summary ---
Demographics + + + | Address | [address] | | | [place] [address] | + + + | Home Phone [...] | Author | [facility] | | | and Josephana | + + + | Organization | [facility] | | | and Josephana [...] Team Providers + +------+ + | Care Wearing Apparel Shaker Name | Role | Phone | [...] NEPHROLOGY [address] | M, DO [address] [place] | | | | | [address] | [place] | | | | | [place], [place] | [place], [place] | | | | | [address] | [address] | | | | | [phone] | | | +--------+ + + + [...] PSTOutside record: New patient starter program from [facility], dos: 02/12/17. [facility]Electronically signed by Marilyn Palumbo at 017 [...] [address] | | | | | | [place] [address] | | | | | | [phone] | | | | | | | | +--------+---------+ + + + documented as of this encounter Visit Diagnoses Not on filedocumented in this encounter"
--- OUTSIDE RECORDS SUMMARY | ~2019-03-08 | XMS | Encounter Summary ---
Demographics + + + | Address | [address] | | | [place] [address] | + + + | Home Phone [...] | Author | [facility] | | | and Josephana | + + + | Organization | [facility] | | | and [...] Team Providers + +------+ + | Care Pulper Operator Name | Role | Phone | + +------+ + PCP | Unavailable | + +------+ + Encounter Details +--------+ + + + + | Date | Type | Department | Care Team | Description | +--------+ + + + + | 03/25/ | Documentati | [facility] | Daniela Ibarra, | | | 2016 | on | NEPHROLOGY [address] | MD [address] | | | | | [address] | [address] [place] | | | | | [place], [place] | [place] [address] | | | | | [address] | [phone] | | | | | [phone] | | | +--------+ + + + [...] [place] | | | | | | [place] [address] | | | | | | [phone] | | | | | | | | +--------+---------+ + + + documented as of this encounter Visit Diagnoses Not on filedocumented in this encounter"
--- OUTSIDE RECORDS SUMMARY | ~2019-03-08 | XMS | Encounter Summary ---
Demographics + + + | Address | [address] | | | [place] [address] | + + + | Home Phone [...] Author | [facility] | | | and Josephana | + + + | Organization | [facility] [...] + +------+ + | Care Interactive Media Marketing Strategist Name | Role | Phone | + +------+ + PCP | Unavailable | + +------+ + Encounter Details +--------+ + + + + | Date | Type | Department | Care Team | Description | +--------+ + + + + | 04/07/ | Hospital | [facility] | Conversion | | | 2015 | Encounter | CENTER [facility] | Transaction, | | | | | CLINIC [address] | Provider Unknown | | | | | [place], [place] | [phone] | | | | | [address] | | | | | | [phone] | | | +--------+ + + + [...] E | | | | | | [place] [address] | | | | | | [phone] | | | | | | | [...] EXTERNAL LAB | | Testing performed at [facility];[address] [place] [address];[place] [address] MRSA PCR | | | NEGATIVE Testing performed at | | | [facility];[address] [place] [address];[place] [address] | | + + + + +---------+ [...] | | | Patient | performed at [facility];[address] | | LAB | | | | [address];[place], [place] | | | | | | [address] | | | | + + + [...] | | | | | performed at [facility];[address] | | | | | | [facility];[place], [place] | | | | | | [address] | | | | + + + [...] EXTERNAL | | | | performed at [facility];[address] | | LAB | | | | [address];[place] | | | | | | [address] | | | | + + + + + + | RED CELL | 3.67 (L)Comment: Testing | 3.70 - 5.10 | EXTERNAL | | | COUNT | performed at [facility];[address] | M/uL | LAB | | | | [address];[place] | | | | | | [address] | | | | + + + + + + | Hgb | 13.0Comment: Testing | 11.3 - 15.5 | EXTERNAL | | | | performed at [facility];888 | g/dL | LAB | | | | [address];[place] | | | | | | [address] | | | | + + + + + + | Hematocrit, | 38.3Comment: Testing | 34.0 - 46.0 % | EXTERNAL | | | POC | performed at [facility];[address] | | LAB | | | | [address];[place] | | | | | | [address] | | | | + + + + + + | MCV | 104.3 (H)Comment: | 80.0 - 100.0 fl | EXTERNAL | | | | Testing performed at | | LAB | | | | [facility];[address];[place] [address] | | | | + + + + + + | MCH | 35.4 (H)Comment: Testing | 27.0 - 34.0 pg | EXTERNAL | | | | performed at [facility];[address] | | LAB | | | | [address];[place] | | | | | | [address] | | | | + + + + + + | MCHC | 33.9Comment: Testing | 32.0 - 35.5 | EXTERNAL | | | | performed at [facility];888 | g/dL | LAB | | | | [address];[place] | | | | | | [address] | | | | + + + + + + | RDW-CV | 48.1Comment: Testing | 37 - 53 fl | EXTERNAL | | | | performed at [facility];[address] | | LAB | | | | [address];[place] | | | | | | [address] | | | | + + + + + + | Platelet | 157Comment: Testing | 150 - 400 K/uL | EXTERNAL | | | Count | performed at [facility];[address] | | LAB | | | Plasma | [address];[place] | | | | | | [address] | | | | + + + + + + | MPV | 9.3Comment: Testing | fl | EXTERNAL | | | | performed at [facility];[address] | | LAB | | | | [address];[place] | | | | | | [address] | | | | + + + + + + | Differentia | AUTOMATEDComment: | | EXTERNAL | | | l Type | Testing performed at | | LAB | | | | [facility];[address];[place] [address] | | | | + + + + + + | % Segmented | 55.8Comment: Testing | % | EXTERNAL | | | | performed at [facility];[address] | | LAB | | | Neutrophils | [address];[place] | | | | | | [address] | | | | + + + + + + | % | 35.8Comment: Testing | % | EXTERNAL | | | Lymphocytes | performed at [facility];[address] | | LAB | | | | [address];[place] | | | | | | [address] | | | | + + + + + + | % Monocytes | 6.0Comment: Testing | % | EXTERNAL | | | | performed at [facility];[address] | | LAB | | | | [address];[place] | | | | | | [address] | | | | + + + + + + | % | 1.9Comment: Testing | % | EXTERNAL | | | Eosinophils | performed at [facility];[address] | | LAB | | | | [address];[place] | | | | | | [address] | | | | + + + + + + | % Basophils | 0.5Comment: Testing | % | EXTERNAL | | | | performed at [facility];[address] | | LAB | | | | [address];[place] | | | | | | [address] | | | | + + + + + + | Absolute | 2.8Comment: Testing | 1.9 - 7.4 K/uL | EXTERNAL | | | Segmented | performed at [facility];[address] | | LAB | | | Neutrophils | [address];[place] | | | | | | [address] | | | | + + + + + + | Absolute | 1.8Comment: Testing | 1.0 - 3.9 K/uL | EXTERNAL | | | Lymphocytes | performed at [facility];[address] | | LAB | | | | [address];[place] | | | | | | [address] | | | | + + + + + + | Absolute | 0.3Comment: Testing | 0 - 0.8 K/uL | EXTERNAL | | | Monocytes | performed at [facility];[address] | | LAB | | | | [address];[place] | | | | | | [address] | | | | + + + + + + | Absolute | 0.1Comment: Testing | 0 - 0.5 K/uL | EXTERNAL | | | Eosinophils | performed at [facility];[address] | | LAB | | | | [address];[place] | | | | | | [address] | | | | + + + + + + | Absolute | 0.0Comment: Testing | 0 - 0.1 K/uL | EXTERNAL | | | Basophils | performed at [facility];[address] | | LAB | | | | [address];[place] | | | | | | [address] | | | | + + + [...] | | | QUALITATIVE | performed at [facility];[address] | | LAB | | | | [address];[place], [place] | | | | | | [address] | | | | + + + [...] EXTERNAL | | | | performed at [facility];888 | mmol/L | LAB | | | | [address];[place] | | | | | | [address] | | | | + + + + + + | K | 3.3 (L)Comment: Testing | 3.5 - 4.9 | EXTERNAL | | | | performed at [facility];888 | mmol/L | LAB | | | | [address];[place] | | | | | | [address] | | | | + + + + + + | Cl | 99Comment: Testing | 99 - 109 mmol/L | EXTERNAL | | | | performed at [facility];[address] | | LAB | | | | [address];[place] | | | | | | [address] | | | | + + + + + + | CO2 | 29Comment: Testing | 23 - 32 mmol/L | EXTERNAL | | | | performed at [facility];[address] | | LAB | | | | [address];[place] | | | | | | [address] | | | | + + + + + + | Anion Gap | 13Comment: Testing | 5 - 20 mmol/L | EXTERNAL | | | | performed at [facility];[address] | | LAB | | | | [address];[place] | | | | | | [address] | | | | + + + + + + | Glucose, | 92Comment: Testing | 65 - 99 mg/dL | EXTERNAL | | | Fasting | performed at [facility];[address] | | LAB | | | | [address];[place] | | | | | | [address] | | | | + + + + + + | BUN | 30 (H)Comment: Testing | 8 - 25 mg/dL | EXTERNAL | | | | performed at [facility];[address] | | LAB | | | | [address];[place] | | | | | | [address] | | | | + + + + + + | Creatinine | 7.21 (H)Comment: Testing | 0.50 - 1.00 | EXTERNAL | | | | performed at [facility];888 | mg/dL | LAB | | | | [address];[place] | | | | | | [address] | | | | + + + + + + | BUN/Creatin | 4Comment: Testing | | EXTERNAL | | | ine Ratio | performed at [facility];[address] | | LAB | | | | [address];[place] | | | | | | [address] | | | | + + + + + + | Calcium | 8.3 (L)Comment: NOTE NEW | 8.5 - 10.5 | EXTERNAL | | | | REFERENCE RANGETesting | mg/dL | LAB | | | | performed at [facility];[address] | | | | | | [address];[place] | | | | | | [address] | | | | + + + + + + | Estimated | CALCULATION NOT | mL/min/1.73m2 | EXTERNAL | | | GFR | PERFORMED. RESULT NOT | | LAB | | | | VALID IF AGE LT 20 | | | | | | YEARS.Comment: Testing | | | | | | performed at [facility];[address] | | | | | | [address];[place] | | | | | | [address] | | | | + + + [...]
--- OUTSIDE RECORDS SUMMARY | ~2019-03-08 | XMS | Encounter Summary ---
Demographics + + + | Address | [address] | | | [place] [address] | + + + | Home Phone [...] + + | Author | [facility] | | | and Josephana | + + + | Organization | [facility] | [...] Team Providers + +------+ + | Care Landscape Gardener Name | Role | Phone | + +------+ + PCP | Unavailable | + +------+ + Encounter Details +--------+ + + + + | Date | Type | Department | Care Team | Description | +--------+ + + + + | 07/31/ | Hospital | [facility] | Conversion | ESRD (end stage | | 2015 | Encounter | CENTER CV INTRA OP | Transaction, | renal disease) (HCC) | | | | [address] | Provider Unknown | | | | | [place], [place] | [phone] | | | | | [address] | | | | | | [phone] | Colten Hutchins MD | | | | | | [address] | | | | | | [place], [place] | | | | | | [address] | | | | | | | [...] Progress Notes Conversion Transaction, Provider Unknown - 07/31/2014 4:20 PM PDTFormatting of this note m ight be different from the original. Progress Notes by Mervat Harden RN at 07/31/141619 Author: Mervat Harden RN Service: (none) Author Type: Registered Nurse Filed: 07/31/141620 Date of Service: 07/31/141619 Status: Signed Retail Beauty Specialist: Mervat Harden RN (Registered Nurse) Pt meets d/c criteria. Site c/d/i and soft. Mother providing transportation home. Mervat Harden RN onver arturo Transaction, Provider Unknown - 07/31/2014 3:52 PM PDT Progress Notes by Mervat Harden RN at 07/31/141551 Author: Mervat Harden RN Service: (none) Author Type: Registered Nurse Filed: 07/31/14 5383 Date of Service: 07/31/141551 Status: Signed Retail Beauty Specialist: Mervat Harden RN (Registered Nurse) Pt tolerated dialysis catheter removal well. Vss. D/c instructions given and discussed pt. States understanding. Will d/c pt. In 30 mins. Mervat Harden RN docume nted in this encounter Plan [...] [place] | | | | | | [place] [address] | | | | | | [phone] | | | | | | | | +--------+---------+ + + + documented as of this encounter Procedures + +--------+ + + + | Procedure Name | Priori | Date/Time | Associated Diagnosis | Comments | | | ty | | | | + +--------+ + + + | IR REMOVAL TUNNELED | Routin | 07/31/2014 | | Results for this | | CV CATH WO PORT | e | 3:25 PM | | procedure are in the | | | | PDT | | results section. | + +--------+ + + + documented in this encounter Results IR Removal Tunneled CV Cath wo Port (07/31/2014 3:25 PM PDT) + + | Specimen | + + | | + + + + + | Impressions | Performed At | + + + | Successful removal of right upper chest tunneled dialysis | | | catheter under local anesthesia without incident. | | | | | + + + + + + | Narrative | Performed At | + + + | PROCEDURE Removal of dual-lumen tunneled dialysis catheter in right | | | upper chest under local anesthesia. INDICATIONS Patient with | | | functioning left upper arm AV fistula. No longer utilizing tunneled | | | dialysis catheter as a functioning access, needs removal. | | | REQUESTING PROVIDER Jorje Camp M.D. MEDICATIONS Lidocaine | | | 1% for local anesthesia. DESCRIPTION OF PROCEDURE I met this | | | patient in the S3B Multi Sensor Operator holding area. I had a discussion with the | | | patient regarding the procedure, the risks involved, and the | | | alternatives. The patient verbalized understanding of this and their | | | desire was to proceed with the procedure. Therefore, written | | | informed consent was obtained. The patient was lying supine in the | | | bed. The right upper chest and external portion of the catheter were | | | prepped utilizing chlorahexadine scrubs. The skin and subcutaneous | | | tissues were infiltrated with lidocaine 1%. Sterile drapes were malika | | | and sterile technique was maintained throughout the procedure. | | | Heparin lock was removed from the dialysis catheter. Subsequently, | | | using minimal blunt dissection, the subcutaneous cuff was | | | from the adjacent soft tissues and the catheter was removed. | | | Hemostasis was obtained with manual pressure. Xeroform and gauze | | | dressing applied. The patient tolerated the procedure well and no | | | procedural complications were encountered. | | + + + + + | Procedure Note | + + | Cedric Rad Conversion - 10/19/2018 6:38 AM PDT PROCEDURERemoval of dual-lumen tunneled | | dialysis catheter in right upper chest under local anesthesia. INDICATIONSPatient with | | functioning left upper arm AV fistula. No longer utilizing tunneled dialysis catheter as | | a functioning access, needs removal. REQUESTING Georgina Camp M.D. | | MEDICATIONSLidocaine 1% for local anesthesia. DESCRIPTION OF PROCEDUREI met this patient | | in the S3B Multi Sensor Operator holding area. I had a discussion with the patient regarding the | | procedure, the risks involved, and the alternatives. The patient verbalized | | understanding of this and their desire was to proceed with the procedure. Therefore, | | written informed consent was obtained. The patient was lying supine in the bed. The | | right upper chest and external portion of the catheter were prepped utilizing | | chlorahexadine scrubs. The skin and subcutaneous tissues were infiltrated with lidocaine | | 1%. Sterile drapes were malika and sterile technique was maintained throughout the | | procedure. Heparin lock was removed from the dialysis catheter. Subsequently, using | | minimal blunt dissection, the subcutaneous cuff was from the adjacent soft | | tissues and the catheter was removed. Hemostasis was obtained with manual pressure. | | Xeroform and gauze dressing applied. The patient tolerated the procedure well and no | | procedural complications were encountered. IMPRESSION: Successful removal of right | | upper chest tunneled dialysis catheter under local anesthesia without incident. | | | | | |Subsequently, using minimal blunt dissection, the subcutaneous cuff was from the adjacent soft tissues and the catheter was removed. Hemostasis was obtained with manual pres sure. Xeroform and gauze dressing applied. | | | |The patient tolerated the procedure well and no procedural complications were encountered. | | | |IMPRESSION: | | | |Successful removal of right upper chest tunneled dialysis catheter under local anesthesia w ithout incident. | | | | | | | + + documented in this encounter Visit Diagnoses + + | Diagnosis | + + | ESRD (end stage renal disease) (HCC) End stage renal disease | + + documented in this encounter"
--- OUTSIDE RECORDS SUMMARY | ~2019-03-08 | XMS | Encounter Summary ---
Demographics + + + | Address | [address] | | | [place] [address] | + + + | Home Phone [...] | | | | | [place] [address] | | + + + + + | Thania Mallory | ECON | [address] | | | | | [place] [address] | | + + + + + | Deidra Weldon | ECON | [address] | | | | | [place] | | | | | [address] | | + + + + + Care Team Providers + +------+ + | Care Clothing Patternmaker Name | Role | Phone | [...] | | Transplant Services | MD Emanuel [address] | Update (Evaluation | | | | [address] | [address] | Scheduled) | | | | [place], | [place], [place] | | | | | [place] [address] | [address] | | | | | [phone] | [phone] | | | | | | | [...] Denise | | | | | | [place] | | | | | | [address] | | | | | | [phone] | | | | | | | | +--------+ + + + + documented as of this encounter Visit Diagnoses Not on filedocumented in this encounter"
--- OUTSIDE RECORDS SUMMARY | ~2019-03-08 | XMS | Encounter Summary ---
Demographics + + + | Address | [address] | | | [place] [address] | + + + | Home Phone [...] | | | | | [place] [address] | | + + + + + | Thania Mallory | ECON | [address] | | | | | [place] [address] | | + + + + + | Deidra Weldon | ECON | [address] | | | | | [place] | | | | | [address] | | + + + + + Care Team Providers + +------+ + | Care Mannequin Maker Name | Role | Phone | + +------+ + | Jonathan Alonso MD | PCP | | + +------+ + Reason for Visit + + + | Reason | Comments | + + + | Laboratory Test | Drug screens | | Requested | | + + + Encounter Details +--------+ + + + + | Date | Type | Department | Care Team | Description | +--------+ + + + + | 12/17/ | Telephone | Clinical | Kelsi Martinez, | Laboratory Test | | 2015 | | Transplant Services | RN [address] | Requested (Drug | | | | [address] | [facility] | screens) | | | | [address] [place], | [place], [place] | | | | | [place] [address] | [address] | | | | | [phone] | | | +--------+ + + + [...] [place] | | | | | | [place] | | | | | | [address] | | | | | | [phone] | | | | | | | | +--------+ + + + + documented as of this encounter Visit Diagnoses Not on filedocumented in this encounter"
--- OUTSIDE RECORDS SUMMARY | ~2019-03-08 | XMS | Encounter Summary ---
Demographics + + + | Address | [address] | | | [place] [address] | + + + | Home Phone [...] + + | Author | [facility] | | | and Josephana | + + + | Organization | [facility] | | | and Josephana [...] Providers + +------+ + | Care Manager Mass Name | Role | Phone | + [...] NEPHROLOGY [address] | M, DO [address] | | | | | [address] | [place] | | | | | [place], [place] | [place], [place] | | | | | [address] | [address] | | | | | [phone] | | | +--------+ + + + [...] Dr. Camp's progress note from 12/30/13 to [facility] (fx: [phone]) on 01/20/14. documented in this encounter Plan [...] [address] | | | | | | [place] [address] | | | | | | [phone] | | | | | | | | +--------+---------+ + + + documented as of this encounter Visit Diagnoses Not on filedocumented in this encounter"
--- OUTSIDE RECORDS SUMMARY | ~2019-03-08 | XMS | Encounter Summary ---
Demographics + + + | Address | [address] | | | [place] [address] | + + + | Home Phone [...] + + | Author | [facility] | | | and Josephana | + + + | Organization | [facility] | | [...] Providers + +------+ + | Care Hand Cigar Making Supervisor Name | Role | Phone | [...] NEPHROLOGY [address] | MD [address] | (Asymptomatic) | | | | [address] | [address] [place] | | | | | [place], [place] | [place] [address] | | | | | [address] | [phone] | | | | | [phone] | | | +--------+ + + + [...] note e-faxed to Jamil Levi in Dialysis [facility], Lianna Joy [facility] pediatric nephrology at [facility] on 02/07/14. Daniela Ibarra MD - 01/24/2014 2:48 PM PSTFormatting of this note might be different fr om the original. Comprehensive Dialysis Monthly Note Date of visit: 01/24/2014 [address]ialysis Clinic: [facility] [place] Mode of dialysis: Hemodialysis Dialysis prescription: MWF, [...] 2012. Access: R chest catheter. Re-referred to [facility] transplant in Oct 2013 by neonatal pediatric nurse. Peritonitis, dialysis-associated (HCC) 07/29/2013 Note Last Updated: 07/29/2013 Due to MSSA. Had tunneled infection as well. PD catheter removed in July 2013. On Keflex till 08/01/13. History of Henoch-Schonlein purpura Note Last Updated: 07/29/2013 Diagnosed at age 10[address] Joy, neonatal pediatric nurse. 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 On series of Venofer. 5. Mineral bone disease: Serum calcium and phosphorous levels are at goal. PTH is at goal. 6. Acid-base: Serum bicarb is acceptable. 7. Nutrition: Serum albumin is at goal. 8. Transplantation: Pt's father, Clayton, is a potential living donor. Father is being evaluat ed for acceptable candidacy. Will f/u with [facility] Transplant Team. cc: Lucille Griffin [facility] Dr. Lianna Joy, [facility] Pediatric Nephrology [facility] Renal transplant documented in this encounter Plan [...] [place] | | | | | | [place] [address] | | | | | | [phone] | | | | | | | [...]
--- OUTSIDE RECORDS SUMMARY | ~2019-03-08 | XMS | Encounter Summary ---
Demographics + + + | Address | [address] | | | [place] [address] | + + + | Home Phone [...] | Author | [facility] | | | and Josephana | + + + | Organization | [facility] | | | and Josephana | [...] Team Providers + +------+ + | Care Mineral Technologist Name | Role | Phone | [...] Specialty | Surgery / | Diagnoses | Field, | Field, | | | Services | General | End stage | Blake I, | Blake I, | | | Required | Surgery | renal | MD, FACS | , FACS [address] | | | | | disease | [address] | [address] | | | | | (HCC) | [place], | | | | | Procedures | [place], [place] | [place] [address] | | | | | [place] | [address] | Phone: | | | | | ANASTOMOSIS, | Phone: | [phone] | | | | | AV,ANY SITE | [phone] | Fax: | | | | | | Fax: | [phone] | | | | | | [phone] | | +--------+ + + + + + Reason for Visit + + + | Reason | Comments | + + + | New Patient | AV fistula | + + + Consultation (Routine) +--------+ + + + + [...] ESRD (end | Jorje Obrien, | Blake Fung, | | | Required | Surgery | stage renal | DO [address] | [address] | | | | | disease) | [place], [place] | [address] | | | | | ([facility]) | [address] [place] | [place], | | | | | | [place], [place] | [place] [address] | | | | | | [address] | Phone: | | | | | | Phone: | [phone] | | | | | | [phone] | Fax: | | | | | | Fax: | [phone] | | | | | | [phone] | | +--------+ + + + + + Encounter Details +--------+---------+ + + + | Date | Type | Department | Care Team | Description | +--------+---------+ + + + | 12/18/ | Office | [facility] | Blake | End stage renal | | 2013 | Visit | SURGERY [address] | MD Antonieta, FACS [address] | disease (HCC) | | | | [place], [place] | [address] [facility] | (Primary Dx) | | | | [address] | [place] [address] | | | | | [phone] | [phone] | | | | | | | [...] + + + | Blood Pressure | - | - | | + + + + + | Pulse | 81 | 02/20/2014 10:32 AM | | | | | PST | | + + + + + | Temperature | 36.6 C (97.8 F) | 02/20/2014 10:32 AM | | | | | PST | | + + + + + | Respiratory Rate | 17 | 02/20/2014 10:32 AM | | | | | PST | | + + + + + | Oxygen Saturation | 98% | 02/20/2014 10:32 AM | | | | | PST | | + + + + + | Inhaled Oxygen | - | - | | | Concentration | | | | + + + + + | Weight | 97.7 kg (215 lb 4.8 | 02/20/2014 10:32 AM | | | | oz) | PST | | + + + + + | Height | 165.1 cm (5' 5") | 02/20/2014 10:32 AM | | | | | PST | | + + + + + | Body Mass Index | 35.83 | 02/20/2014 10:32 AM | | | | | PST | | + + + + + documented in this encounter Patient Instructions Patient Instructions Blake Chavarria MD - 02/20/2014 11:15 AM PSTbenjamín Freeman surgery has been scheduled for: Feb Pre-op Labs: None EKG: None CXR: None Bowel Prep? NO DO NOT EAT OR DRINK ANYTHING AFTER MIDNIGHT before your surgery. This means No coffee, eknny er, juice or toast on the morning of your surgery. You may take essential medicines with a small sip of water. Special Medication Instructions: none On Feb, go to the admitting office at 6 AM for your surgery to begin a t 8 AM and will finish at about 9:30 AM . Your surgery is called LEFT radial artery-cephalic vein fistula creation. You will be ready to go home about noon. Anesthesia: General and LEFT arm block. Make arrangements for a responsible adult to drive you home. documented in this encounter Progress Notes Blake Chavarria MD - 02/20/2014 10:16 AM PST Patient Identification: Dara Lundberg Shiraz 1995 Is a 18 y.o. female , a patient of Shahid Camargo. Patient is here alone. Chief Complaint: Chief Complaint Patient presents with New Patient AV fistula HISTORY OF PRESENT ILLNESS Patients Preliminary Questionaire: Have you started dialysis yet? yes How many years have been dialyzed? 2 years Are you a candidate for kidney transplantation? yes Who is your Primary Care ? Shahid Camargo Who is your Resolute Professional/Kidney Specialist ? Dr. Camp When was the current dialysis access placed? July 2013 at [facility] in [place] What problems are there with the current dialysis access? 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 Patient used to have PD catheter for dialysis 2012--[facility] in [place] . Came out Jul, 2013 . Then got RIGHT IJ catheter. Also got catheter at [facility]. Live in [place]. Go es to [facility] in [place] for dialysis. Now needs AVF. Is RIGHt hand dominant. No pains in hands. 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 Currently on [facility] for kidney transplant. Wants AVF in LEFT arm. DATA/RECENT IMAGING Note by Daniela Ibarra MD on 01/24/2014 ASSESSMENT AND PLAN: 1. ESRD: Dialysis clearance is at goal. 2. Access: R chest catheter. Pt is going on 7 months of dialyzing via chest catheter. Sparkle ibanez, pt has not had any infectious complication to date. -will plan for AVF surgery if transp lant is further delayed 3. HTN/volume: Clinic BP [...] ed for acceptable candidacy. Will f/u with [facility] Transplant Team. Shahid Cruz Raman's notes were not available to be reviewed in clinic today. PAST MEDICAL HISTORY Past Medical History She has a past medical history of HSP (Henoch-Schonlein purpura) nephritis (HCC) (1987) and ESRD (end stage renal disease) ([facility]). Past Surgical History She Past Surgical History Procedure Date Peritoneal catheter Hemodialysis catheter Biopsy of kidney age 10 Allergies Allergen Reactions Morphine Other reaction(s): Rash Medications: Outpatient Encounter Prescriptions as of 02/20/2014 Medication Sig Dispense Refill cholecalciferol (VITAMIN D-3) 1,000 units tablet Take 1,000 Units by mouth Daily. cinacalcet (SENSIPAR) 30 mg tablet Take 30 mg by mouth Daily (with dinner). Epoetin Andres (EPOGEN IJ) by IV Push route Three times a [...] with meals and 2 tablets with snacks Family History: Her family history includes High blood pressure in her father. Social History: She reports that she has never smoked. She has never used smokeless tobacco. REVIEW of SYSTEMS General: [x]Weight loss/gain (over 10 lbs) [x]Fever/chills []Night sweats Hematologic: []Bleeding/brusing tendencies []Blood transfusion []Anemia Heent: []Vision loss []Hearing loss []Sinus problems/nose bleeds []Hoarseness Respiratory: []Wheezing []Shortness of breath [x]Cough []Spitting up blood []On oxygen []Use CPAP machine Cardiac: []Chest pain []Palpitations/heart racing []Swelling of ankles/hands [x]Unusual shortness of breath []Difficulty sleeping flat Gastrointestinal: [x]Nausea/vomiting []Difficulty swallowing []Heartburn [x]Loss of appetite []Abdominal pain []Stoma ch Ulcers []Diarrhea []Constipation []Bl ack or bloody stools Vascular: []Hernández/TIAs [x]Fainting []Difficulty with speech [x]Leg cramps []Pain in feet/legs at rest []Foot ulcers/s ores []Varicose veins []Phlebitis/blood clots Musculoskeletal: []Joint stiffness/swelling []Join pain [x]Back pain []Arthritis []Gout Urologic: []Blood in urine []Frequent urination at night []Burning/painful urination []Kidney stones []Difficulty urination []Sexual difficulties Neuro/Psychiatric: [x]Headaches []Seizures []Depression []Anxiety attacks []Memory loss or confusion PHYSICAL EXAM Pulse 81 | Temp 36.6 C (97.8 F) (Temporal) | Resp 17 | Ht 1.651 m (5' 5") | Wt 97.659 k g (215 lb 4.8 oz) | BMI 35.83 kg/m2 | SpO2 98% General Appearance: Alert, cooperative, no distress, obese, appears stated age Head: Normocephalic, without obvious abnormality, atraumatic Eyes: PERRL, conjunctiva/corneas clear, vision adequate bilateral Ears: Adequate hearing Neck: Supple, symmetrical, no adenopathy, no neck bruits Lungs: Breath sounds are equal bilaterally, no wheezes or crackles, RIGHT chest with Dur-Flow catheter in place. Chest Wall/Back: No tenderness or deformity. No CVA Tenderness Heart: Regular rate and rhythm, no murmur Extremities: RIGHT arm No visible veins. LEFT arm no visible veins. Palpable pulses Brachial Radial Ulnar LEFT 2+ 2+ 2+ RIGHT 2+ 2+ 2+ Doppler pulses Brachial Radial Ulnar LEFT stronG Strong Strong RIGHT StroNG Strong Strong Ultrasound: See report. Neurologic: Cranial nerves II-XII grossly intact, UE motor ULTRASOUND REPORT: PATIENT NAME : Dara Weldon EQUIPMENT: SonTheranos M-Turbo with 10-5 mHertz probe. INDICATIONS: Dialysis access evaluation FINDING: LEFT arm VEIN Cephalic 3.3 mm, radial art 1.7 mm , brachial artery 3.8 mm Artery RIGHT arm vein Not viewed Artery IMPRESSION: adequate left cephalic vein. ASSESSMENT/PLAN There are no diagnoses linked to this encounter. Recommend LEFT radial artery to cephalic vein fistula. The indications, alternatives, risks, and benefits have been discussed with the patient in detail. Risks include bleeding, infection, damage to surrounding structures, failure to mat ure, arterial steal, hand dysfunction, additional procedures, life-threatening events, and u nforeseen complications. Return to clinic: after surgery. Blake Chavarria MD, FACS Vascular and General Surgery CC: Shahid Camargo documented in this encounter Plan of Treatment +--------+---------+ + + + | Date | Type | Specialty | Care Team | Description | +--------+---------+ + + + | 04/18/ | Office | Pulmonology | Denny Alexander | | | 2020 | Visit | | Deny Briggs MD [address] | | | | | | [address] | | | | | | [place] [address] | | | | | | [phone] | | | | | | | | +--------+---------+ + + + + + +--------+ + + | Name | Type | Priori | Associated Diagnoses | Order Schedule | | | | ty | | | + + +--------+ + + | * [facility] General | Outpatient | Routin | End stage renal | Expected: | | Surgery - AMB | Referral | e | disease (HCC) | 02/24/2014, Expires: | | Referral | | | | 02/20/2015 | + + +--------+ + + documented as of this encounter Visit Diagnoses + + | Diagnosis | + + | End stage renal disease (HCC) - Primary End stage renal disease | + + documented in this encounter
--- OUTSIDE RECORDS SUMMARY | ~2019-03-08 | XMS | Encounter Summary ---
Demographics + + + | Address | [address] | | | [place] [address] | + + + | Home Phone [...] + + + | Author | [facility] | | | and Josephana | + + + | Organization | [facility] | [...] Team Providers + +------+ + | Care Math Professor Name | Role | Phone | [...] + + | 11/15/ | Telephone | [facility] | George Torres RN | Medication Problem | | 2019 | | [address] | | ([address] [address]) | | | | [place] | | | | | | [address] | | | | | | [phone] | | | +--------+ + + + [...] [address] | | | | | | [place] [address] | | | | | | [phone] | | | | | | | | +--------+---------+ + + + documented as of this encounter Visit Diagnoses Not on filedocumented in this encounter"
--- OUTSIDE RECORDS SUMMARY | ~2019-03-08 | XMS | Encounter Summary ---
Demographics + + + | Address | [address] | | | [place] [address] | + + + | Home Phone [...] | | | | | [place] [address] | | + + + + + | Thania Mallory | ECON | [address] | | | | | [place] [address] | | + + + + + | Deidra Weldon | ECON | [address] | | | | | [place] | | | | | [address] | | + + + + + Care Team Providers + +------+ + | Care Head Sawyer Name | Role | Phone | + [...] Evaluation | | | | Caro Chan [place], | [place], [place] | (pre-listing | | | | [place] [address] | [address] | pediatric [place] [address] | | | | [phone] | | update) | +--------+ + + [...] Denise | | | | | | [place] | | | | | | [address] | | | | | | [phone] | | | | | | | | +--------+ + + + + documented as of this encounter Visit Diagnoses Not on filedocumented in this encounter"
--- OUTSIDE RECORDS SUMMARY | ~2019-03-08 | XMS | Encounter Summary ---
Demographics + + + | Address | [address] | | | [place] [address] | + + + | Home Phone [...] Author | [facility] | | | and Josephana | + + + | Organization | [facility] | | | and [...] Providers + +------+ + | Care Change Over Name | Role | Phone | + [...] | NEPHROLOGY [address] | | | | | [address] | [address] [place] | | | | | [place], [place] | [place] [address] | | | | | [address] | [phone] | | | | | [phone] | | | +--------+--------+ + + + [...] | | | | | [place] [address] | | | | | | [phone] | | | | | | | | +--------+---------+ + + + documented as of this encounter Visit Diagnoses Not on filedocumented in this encounter"
--- OUTSIDE RECORDS SUMMARY | ~2019-03-08 | XMS | Encounter Summary ---
Demographics + + + | Address | [address] | | | [place] [address] | + + + | Home Phone [...] + | Author | [facility] | | | and Josephana | + + + | Organization | [facility] | [...] Providers + +------+ + | Care Manager Baby Name | Role | Phone | + +------+ + | Tien Nicholson MD | PCP | | + +------+ + Encounter Details +--------+ + + + + | Date | Type | Department | Care Team | Description | +--------+ + + + + | 05/26/ | Hospital | [facility] | Mayco Rizvi MD | Chest pain, | | 2019 - | Encounter | [facility] | [address] [place] | unspecified type; | | | | CARE FLOOR [address] | [address] [place], [place] | Hypoalbuminemia; | | 06/01/ | | [address] | [address] | Anemia in ESRD | | 2019 | | [place], [place] | | (end-stage renal | | | | [address] | | disease) ([facility]); | | | | [phone] | | End-stage renal | | | | | | disease on | | | | | | hemodialysis ([facility]); | | | | | | [...] | | | | | | failure) ([facility]) | +--------+ [...] Date of Service: 06/01/18 0959 Status: Addendum Dinkey Engine Firer/Fireman: Darell Rossi MD (Physician) Related Notes: Original Note by Darell Rossi MD (Physician) filed at 06/04/18 2103 [facility] Service: Hospitalist Physician Discharge Summary Pt: Dara Louise AGE/SEX: 23 y.o. female ROOM: [address] [place] [address] PCP: TIEN NICHOLSON : 1995 Admit date: [...] 17. The mitral valve is normal. 18. Jtvs-ou-wcysy ate eccentric mitral regurgitation is present. 19. [...] anemia of chronic disease who went to [facility] with increasing shortness of breath found to have right pleural effusion who was transfer red to [facility] underwent right-sided diagnostic [...] hyperkalemia with that. I discussed with the access director as well regarding not being on [place]/ARB. [...] Component Value Units Date/Time Culture, Body Fluid [[id number]] Collected: 05/26/18 1412 Specimen: Body Fluid from Pleural Fluid Updated: 05/30/18 0733 Specimen Description PLEURAL FLUID GRAM STAIN WBC'S SEEN GRAM STAIN NO ORGANISMS SEEN GRAM STAIN STAIN PERFORMED ON CYTOSPIN CULTURE NO GROWTH 4 DAYS Culture, Body Fluid [[id number]] Collected: 05/26/18 1513 Specimen: Other from Ascites Fluid Updated: 05/30/18 0732 Specimen Description ASCITES FLUID GRAM STAIN STAIN PERFORMED ON CYTOSPIN GRAM STAIN WBC'S SEEN GRAM STAIN NO EPITHELIAL CELLS SEEN GRAM STAIN NO ORGANISMS SEEN CULTURE NO GROWTH 4 DAYS Gram stain [[id number]] Collected: 05/29/18 1256 Specimen: Sputum from Thoracic Fluid Updated: 05/29/18 2339 Specimen Description THORACIC FLUID CULTURE 1+ WBC'S SEEN NO ORGANISMS SEEN Lactate dehydrogenase, body fluid [[id number]] Collected: 05/29/18 1256 Specimen: Body Fluid from Pleural, Right Updated: 05/29/18 1619 FLUID LDH 151 U/L Cholesterol, body fluid [[id number]] Collected: 05/29/18 1256 Specimen: Body Fluid from [...] medications if needed. Follow-Up: Tien Nicholson MD [address] [place] [address] In 1 week Carolina Mahmood DO [address] [place] [facility] [id number] In 1 week Daniela Ibarra MD [address] [facility] [id number] In 1 week Discharge took more than 35 minutes, to include final examination, discussion of admission, and preparation of prescriptions, instructions for ongoing care, follow up and dictation of summary. Signed: DARELL ROSSI MD 06/01/2018 9:59 AM Dictation software, Parent[employer], used which may contain error for similar [...] | | | | renal disease) ([facility]) | protocol | | | | [...] Date of Service: 06/01/18 150 Status: Signed Dinkey Engine Firer/Fireman: Tino Paiz CRT (Certified Respiratory Therapist) [facility] Department of Respiratory Skilled Nursing Oxygen Evaluation (Evaluation is valid for 48 [...] (none) Author Type: Registered Nurse Filed: 06/01/18 5475 Date of Service: 06/01/18 1500 Status: Signed [employer]key Engine Firer/Fireman: Autumn Moy RN (Registered Nurse) Pt was [...] Date of Service: 06/01/18 1248 Status: Signed [employer]key Engine Firer/Fireman: Leanna Ariza RN (Registered Nurse) Pt will d/c home today --already established on HD/[place] MWF --will have O2 eval today No other needs Angela Antonio Carrasco MD - 06/01/2018 10:52 AM PDTFormatting of this note might be different from the orig inal. Progress Notes by Antonio Benjamin MD at 06/01/18 1052 Author: Antonio Benjamin MD Service: Nephrology Author Type: Physician Filed: 06/05/18 1253 Date of Service: 06/01/18 1052 Status: Signed Dinkey Engine Firer/Fireman: Antonio Benjamin MD (Physician) [facility] Service: NEPHROLOGY Dialysis/ Progress Note Dara Lundberg Shiraz 23 y.o. [id number] female [facility] Day: LOS: 6 days Patient with PMH [...] AV FISTULA; Surgeon: Rik Simon MD; Location: [facility] OR; Service: Vascula r; Laterality: Left; cephalic AV FISTULA REPAIR Left 03/07/2014 Procedure: AV FISTULA - GRAFT REPAIR/REVISION; Surgeon: Rik Simon MD; Location: [facility] IN OR; Service: Vascular; Laterality: Left; DECLOT GRAFT Left 03/07/2014 Procedure: GRAFT - DECLOT; Surgeon: Rik Simon MD; Location: [facility]; Service: Vas cular; Laterality: Left; DIALYSIS FISTULA CREATION N/A 04/08/2014 Procedure: DIALYSIS CATHETER - INSERTION; Surgeon: Rik Simon MD; Location: [facility] OR ; Service: Vascular; Laterality: N/A; tunneled catheter LAPAROSCOPIC PERITONEAL DIALYSIS CATHETER INSERTION x2 LAPAROSCOPIC PERITONEAL DIALYSIS CATHETER INSERTION Right 07/2013 current dialysis access MWF dialysis RENAL BIOPSY SUPERFICIALIZATION OF AV FISTULA Left 06/24/2014 Procedure: AV FISTULA - SUPERFICIALIZATION; Surgeon: Rik Simon MD; Location: [facility]; Service: Vascular; Laterality: Left; History [...] radiologist report and is used for image [employer] only Us Abdomen Limited Result Date: 05/28/2018 [...] 17. The mitral valve is normal. 18. Zcqt-da-tkbfrupx eccentric mitral regurgitation i s present. 19. [...] mitral valve is normal. Mitral Kait ve: Jwbw-dr-rjnugkhd eccentric mitral regurgitation is present. Tricuspid Valve: [...] maxP.08 mmHg TR Vmax: 2.7 4 m/s [employer] Car Repairer: MOO Authenticated by: Robel Yusuf MD Report [...] 17. The mitral valve is normal. 18. Fyty-sp-eukbs ate eccentric mitral regurgitation is present. 19. [...] pleural spac e is punctured with an 8-Bermudian thoracentesis catheter. Fluid is aspirated without complicat [...] earlier and charting completed later Dictation software, Parent[employer], used which may contain error for similar [...] 0632 Date of Service: 06/01/1835 Status: Signed Dinkey Engine Firer/Fireman: Aury Eldridge RN (Registered Nurse) Pts VSS. [...] 05/31/181840 Date of Service: 05/31/181840 Status: Signed [employer] Engine Firer/Fireman: Romelia Cooley RN (Registered Nurse) End of shift chart review complete. Romelia Cooley RN koum, René Mckeon MD - 05/31/2018 11:32 AM PDTFormatting of this note might be different from the candice ginal. Progress Notes by René Anguiano MD at 05/31/18 113 Author: René Anguiano MD Service: Nephrology Author Type: Physician Filed: 05/31/18 1654 Date of Service: 05/31/18 113 Status: Addendum Dinkey Engine Firer/Fireman: René Anguiano MD (Physician) Related Notes: Original [...] put on "an antibiotic" for pneumonia at [facility] ED. Was throwing up & could [...] the prelim submitted orders, MWF No acute STAFFING CONSULTANT indication ESTEFANY as indicated with HD Protein [...] 0951 Date of Service: 05/31/18941 Status: Signed Dinkey Engine Firer/Fireman: Darell Rossi MD (Physician) [facility] Service: Hospitalist Progress Note Pt: Dara Louise AGE/SEX: 23 y.o. female ROOM: [address] [place] [address] : 1995 PCP: TIEN NICHOLSON ADMIT DATE: 05/26/2018 TODAY'S DATE: 05/31/2018 Hospital Day/Hospital Course: LOS: [address] Figueroa 23-year-old female with past medical history of end-stage renal disease on hemodialysis Mon, hypertension, anemia of chronic disease who went to [facility] with increasing shortness of breath found to have right pleural effusion who was transfer red to [facility] underwent right-sided diagnostic [...] Component Value Units Date/Time Culture, Body Fluid [[id number]] Collected: 05/26/18 1412 Specimen: Body Fluid from Pleural Fluid Updated: 05/30/18 0733 Specimen Description PLEURAL FLUID GRAM STAIN WBC'S SEEN GRAM STAIN NO ORGANISMS SEEN GRAM STAIN STAIN PERFORMED ON CYTOSPIN CULTURE NO GROWTH 4 DAYS Culture, Body Fluid [[id number]] Collected: 05/26/18 1513 Specimen: Other from Ascites Fluid Updated: 05/30/18 0732 Specimen Description ASCITES FLUID GRAM STAIN STAIN PERFORMED ON CYTOSPIN GRAM STAIN WBC'S SEEN GRAM STAIN NO EPITHELIAL CELLS SEEN GRAM STAIN NO ORGANISMS SEEN CULTURE NO GROWTH 4 DAYS Gram stain [[id number]] Collected: 05/29/18 1256 Specimen: Sputum from Thoracic Fluid Updated: 05/29/18 2339 Specimen Description THORACIC FLUID CULTURE 1+ WBC'S SEEN NO ORGANISMS SEEN Lactate dehydrogenase, body fluid [[id number]] Collected: 05/29/18 1256 Specimen: Body Fluid from Pleural, Right Updated: 05/29/18 1619 FLUID LDH 151 U/L Cholesterol, body fluid [[id number]] Collected: 05/29/18 1256 Specimen: Body Fluid from Pleural, Right Updated: 05/29/18 1619 FLUID CHOLESTEROL 56 mg/dL Sputum culture [[id number]] Collected: 05/27/182014 Specimen: Sputum from Sputum Updated: [...] 17. The mitral valve is normal. 18. Fmei-nn-skxvn ate eccentric mitral regurgitation is present. 19. [...] anemia of chronic disease who went to [facility] with increasing shortness of breath due to acute congestive heart failure Acute systolic congestive heart failure with Pleural Effusion: Admitted with acute systolic congestive heart failure with bilateral pleural effusion stat us post thoracentesis 2. Her breathing has improved. She is talking to me appropriately. N ot in any kind of distress. director of convention services to initiate the discharge plan. Possible dischar [...] MD, FACP 05/31/2018 9:42 AM Dictation software, Parental [employer], used which may contain error for similar [...] 05/31/18253 Date of Service: 05/31/18253 Status: Signed Dinkey Engine Firer/Fireman: Nandini Robertson RN (Registered Nurse) Chart review completed. onver arturo Transaction, Provider Unknown - 05/30/2018 6:37 PM PDT Nurse Progress Note by Kyra Amador RN at 05/30/181836 Author: Kyra Amador RN Service: (none) Author Type: Registered Nurse Filed: 05/30/181842 Date of Service: 05/30/181836 Status: Signed Din[employer] Engine Firer/Fireman: Kyra Amador RN (Registered Nurse) VSS. Pt [...] Date of Service: 05/30/18 0909 Status: Signed Dinkey Engine Firer/Fireman: Darell Rossi MD (Physician) [facility] Service: Hospitalist Progress Note Pt: Dara Toño Louise AGE/SEX: 23 y.o. female ROOM: [facility]- : 1995 PCP: TIEN NICHOLSON ADMIT DATE: 05/26/2018 TODAY'S DATE: 05/30/2018 Hospital Day/Hospital Course: LOS: [address] Figueroa 23-year-old female with past medical history of end-stage renal disease on hemodialysis Mon day Monday, hypertension, anemia of chronic disease who went to [facility] with increasing shortness of breath found to have right pleural effusion who was transfer red to [facility] underwent right-sided diagnostic [...] Component Value Units Date/Time Culture, Body Fluid [[id number]] Collected: 05/26/18 1412 Specimen: Body Fluid from Pleural Fluid Updated: 05/30/18 9952 Specimen Description PLEURAL FLUID GRAM STAIN WBC'S SEEN GRAM STAIN NO ORGANISMS SEEN GRAM STAIN STAIN PERFORMED ON CYTOSPIN CULTURE NO GROWTH 4 DAYS Culture, Body Fluid [[id number]] Collected: 05/26/18 1513 Specimen: Other from Ascites Fluid Updated: 05/30/18 0732 Specimen Description ASCITES FLUID GRAM STAIN STAIN PERFORMED ON CYTOSPIN GRAM STAIN WBC'S SEEN GRAM STAIN NO EPITHELIAL CELLS SEEN GRAM STAIN NO ORGANISMS SEEN CULTURE NO GROWTH 4 DAYS Gram stain [[id number]] Collected: 05/29/18 1256 Specimen: Sputum from Thoracic Fluid Updated: 05/29/18 2339 Specimen Description THORACIC FLUID CULTURE 1+ WBC'S SEEN NO ORGANISMS SEEN Lactate dehydrogenase, body fluid [[id number]] Collected: 05/29/18 1256 Specimen: Body Fluid from Pleural, Right Updated: 05/29/18 1619 FLUID LDH 151 U/L Cholesterol, body fluid [[id number]] Collected: 05/29/18 1256 Specimen: Body Fluid from Pleural, Right Updated: 05/29/18 1619 FLUID CHOLESTEROL 56 mg/dL Sputum culture [[id number]] Collected: 05/27/182014 Specimen: Sputum from Sputum Updated: [...] 17. The mitral valve is normal. 18. Emwr-ve-hiesa ate eccentric mitral regurgitation is present. 19. [...] anemia of chronic disease who went to [facility] with increasing shortness of breath [...] MD, FACP 05/30/2018 9:10 AM Dictation software, Parent[employer], used which may contain error for similar [...] 05/30/18417 Date of Service: 05/30/18416 Status: Signed Dinkey Engine Firer/Fireman: Nandini Robertson RN (Registered Nurse) Pt did well overnight. VSS. Chart review completed. Carolina Cantor, Medical Student - 05/29/2018 7:56 PM PDT Progress Notes by Carolina Mahmood DO at 05/29/181955 Author: Carolina Mahmood DO Service: Cardiology Author Type: Physician Filed: 05/29/182014 Date of Service: 05/29/181955 Status: Signed Dinkey Engine Firer/Fireman: Carolina Mahmood DO (Physician) [facility] Service: Cardiology Progress Note Hospital Day: LOS: [...] 05/29/181742 Date of Service: 05/29/181739 Status: Signed Dinkey Engine Firer/Fireman: Flaco Can RN (Registered Nurse) Pt VSS. [...] Notes by Anthony Figueroa MD at 05/29/18 1348 Author: Anthony Figueroa MD Service: Hospitalist Author Type: Physician Filed: 05/29/18 2436 Date of Service: 05/29/181342 Status: Signed Dinkey Engine Firer/Fireman: Anthony Figueroa MD (Physician) Hospitalist Progress Note Dara Louise 23 y.o. [id number] female [facility] Day: LOS: 3 days Patient Summary: 23-year-old female with past medical history of end-stage renal dis ease on hemodialysis Monday, hypertension, anemia of chronic disease who we nt to [facility] with increasing shortness of breath found to have right pleural e ffusion who was transferred to [facility] underwent right-sided diagnostic [...] Value Units Date/Time Lactate dehydrogenase, body fluid [[id number]] Collected: 05/29/18 125 Specimen: Body Fluid from Pleural, Right Updated: 05/29/18 1315 Cholesterol, body fluid [[id number]] Collected: 05/29/18 125 Specimen: Body Fluid from Pleural, Right Updated: 05/29/18 1315 Gram stain [[id number]] Collected: 05/29/18 125 Specimen: Sputum from OTHR-w source desc (F6) Updated: 05/29/18 1309 Sputum culture [[id number]] Collected: 05/27/182014 Specimen: Sputum from Sputum Updated: 05/29/18 0947 Specimen Description SPUTUM GRAM STAIN LESS THAN 10 WBCS/LPF GRAM STAIN LESS THAN 10 SEC/LPF GRAM STAIN NO ORGANISMS SEEN CULTURE 1+ NORMAL UPPER RESPIRATORY ALESSANDRO HIV 1/2 Ab reflex [[id number]] Collected: 05/28/18 1236 Specimen: Blood Updated: 05/29/18 0942 HIV1/HIV2 NON REACTIVE Protime-INR [[id number]] Collected: 05/29/1852 Specimen: Blood Updated: 05/29/1840 INR 1.5 APTT [[id number]] Collected: 05/29/1852 Specimen: Blood Updated: 05/29/1840 APTT 29 seconds Culture, Body Fluid [[id number]] Collected: 05/26/18 1513 Specimen: Other from Ascites Fluid Updated: 05/29/18 0920 Specimen Description ASCITES FLUID GRAM STAIN STAIN PERFORMED ON CYTOSPIN GRAM STAIN WBC'S SEEN GRAM STAIN NO EPITHELIAL CELLS SEEN GRAM STAIN NO ORGANISMS SEEN CULTURE NO GROWTH 3 DAYS Culture, Body Fluid [[id number]] Collected: 05/26/18 1412 Specimen: Body Fluid from Pleural Fluid Updated: 05/29/18917 Specimen Description PLEURAL FLUID CULTURE NO GROWTH 3 DAYS Comprehensive metabolic panel [[id number]] (Abnormal) Collected: 05/29/18456 Specimen: Blood Updated: 05/29/18615 [...] mL/min/1.73m2 CBC W/Auto Diff (Reflex to Manual) [[id number]] (Abnormal) Collected: 05/29/18456 Specimen: Blood Updated: 05/29/18612 [...] 0.05 K/uL MORPHOLOGY 2+ hCG, serum, qualitative [[id number]] Collected: 05/28/18922 Specimen: Blood Updated: 05/28/181949 TEST,SERUM NEGATIVE C-reactive protein [[id number]] (Abnormal) Collected: 05/28/18922 Specimen: Blood Updated: 05/28/181940 CRP 5.1 (H) mg/dL Sedimentation rate, automated [[id number]] Collected: 05/28/18922 Specimen: Blood Updated: 05/28/18 1734 ESR 2 mm/Hr Hepatitis panel,acute [[id number]] Collected: 05/28/18 1236 Specimen: Blood Updated: 05/28/18 1650 HAV AB,IGM NON REACTIVE HEP B SURFACE AG NON REACTIVE ANTI HEP B CORE,IGM NON REACTIVE HEPATITIS C NON REACTIVE HEPATITIS INTERP No serologic evidence of HAV, HBV, or HCV infection. Troponin I [[id number]] Collected: 05/28/18922 Specimen: Blood Updated: 05/28/18 143 TROPONIN I 0.034 ng/mL Troponin I [[id number]] Collected: 05/28/18 1359 Specimen: Blood Updated: 05/28/18 143 TROPONIN I 0.037 ng/mL Renal function panel [[id number]] (Abnormal) Collected: 05/28/18 1209 Specimen: Blood from Blood Updated: 05/28/18 1302 SODIUM 141 mmol/L POTASSIUM 4.3 mmol/L CHLORIDE 101 mmol/L CO2 29 mmol/L ANION GAP AGAP 15 mmol/L GLUCOSE 78 mg/dL BUN 43 (H) mg/dL CREATININE 7.97 (H) mg/dL CALCIUM 9.1 mg/dL Albumin 3.6 g/dL PHOSPHORUS 6.3 (H) mg/dL EGFR 6 (L) mL/min/1.73m2 CBC W/Auto Diff (Reflex to Manual) [[id number]] (Abnormal) Collected: 05/28/18922 Specimen: Blood Updated: 05/28/18 [...] 0.05 K/uL MORPHOLOGY 1+ Comprehensive metabolic panel [[id number]] (Abnormal) Collected: 05/28/18922 Specimen: Blood Updated: 05/28/18 [...] (H) U/L EGFR 6 (L) mL/min/1.73m2 TSH [[id number]] Collected: 05/28/18922 Specimen: Blood Updated: 05/28/18 1210 TSH 1.270 uIU/mL Pathologist consult [[id number]] Collected: 05/26/18 1412 Updated: 05/28/18 1113 Pathologist Consult -- Hepatitis panel, chronic [[id number]] (Abnormal) Collected: 05/27/18 1758 Updated: 05/27/18 203 Hep A Total Ab REACTIVE (A) HEP B SURFACE AG NON REACTIVE HEP B CORE AB,TOTAL NON REACTIVE HEP B SURFACE ANTIBODY 3.27 (H) IV HEPATITIS C NON REACTIVE HEPATITIS INTERP Current or past HAV infection. Past HBV infection or vaccination. No ser ologic evidence of HCV infection. CBC w/auto diff (reflex to manual) [[id number]] (Abnormal) Collected: 05/27/18 0425 Specimen: Blood Updated: [...] K/uL MORPHOLOGY 2+ Platelet Estimate DECREASED Phosphorus [[id number]] (Abnormal) Collected: 05/27/18424 Specimen: Blood Updated: 05/27/18628 PHOSPHORUS 8.0 (H) mg/dL Basic Metabolic Panel [[id number]] (Abnormal) Collected: 05/27/18424 Specimen: Blood Updated: 05/27/18628 SODIUM 135 mmol/L POTASSIUM 5.9 (H) mmol/L CHLORIDE 96 (L) mmol/L CO2 25 mmol/L ANION GAP AGAP 20 mmol/L GLUCOSE 74 mg/dL BUN 51 (H) mg/dL CREATININE 9.2 (H) mg/dL BUN/CREAT 6 CALCIUM 9.4 mg/dL EGFR 5 (L) mL/min/1.73m2 Magnesium [[id number]] (Abnormal) Collected: 05/27/18424 Specimen: Blood Updated: 05/27/18628 MAGNESIUM 2.7 (H) mg/dL Brain natriuretic peptide [[id number]] (Abnormal) Collected: 05/27/18424 Specimen: Blood Updated: 05/27/1846 BRAIN NATRIURETIC PEPTIDE 1,153.92 (H) pg/mL Respiratory Filmarray [[id number]] (Abnormal) Collected: 05/26/181805 Specimen: Nasopharynx/Oropharynx Updated: 05/26/182141 [...] performed by Molecular Methodology MRSA by PCR [[id number]] Collected: 05/26/181805 Specimen: Nasopharyngeal from Nares(Nose) Updated: 05/26/182025 SOURCE NARES(NOSE) MRSA PCR NEGATIVE Procalcitonin [[id number]] (Abnormal) Collected: 05/26/181726 Updated: 03/23/19 1839 PROCALCITONIN 0.76 (H) ng/mL Albumin, Body Fluid [[id number]] Collected: 05/26/181411 Specimen: Body Fluid from Lung, Right Lower Lobe Updated: 05/26/18 172 FLUID ALBUMIN 2.3 g/dL Total Protein, Body Fluid [[id number]] Collected: 05/26/181411 Specimen: Body Fluid from Lung, Right Lower Lobe Updated: 05/26/18 172 FLUID TOTAL PROTEIN 4.2 g/dL FLUID TP SOURCE PLEURAL FLUID Cell count, Body Fluid [[id number]] Collected: 05/26/181411 Specimen: Body Fluid from Lung, Right Lower Lobe Updated: 05/26/18 170 FLUID TYPE PLEURAL FLUID COLOR SAMMIE APPEARANCE CLOUDY RBC'S 3,000 /mm3 TOTAL NUCLEATED CELLS 253 /mm3 NEUTROPHILS 22 % LYMPHOCYTES 8 % MONOCYTES/MACROPHAGES 65 % Mesothelial Cells 5 % CELLS COUNTED 100 pH, Body Fluid [[id number]] Collected: 05/26/181411 Specimen: Body Fluid from Lung, [...] Date of : 1995 Performing P hysician: Roble Yusuf MD ____ INDICATIONS SOB CONCLUSIONS 1. [...] 17. The mitral valve is normal. 18. Yaxg-ge-fnvgdjai eccentric mitral regurgitation i s present. 19. [...] mitral valve is normal. Mitral Kait ve: Mbrc-mc-jyobrhtq eccentric mitral regurgitation is present. Tricuspid Valve: [...] maxP.08 mmHg TR Vmax: 2.7 4 m/s [employer] Car Repairer: MOO Authenticated by: Robel Yusuf MD Report [...] 17. The mitral valve is normal. 18. Wfax-fm-rwtfh ate eccentric mitral regurgitation is present. 19. [...] imbalance Acute systolic CHF (congestive heart failure) ([facility]) Transaminitis ASSESSMENT & PLAN Bilateral pleural effusion [...] Service: Nephrology Author Type: Physician Filed: 05/31/18 3584 Date of Service: 05/29/18725 Status: Addendum Dinkey Engine Firer/Fireman: René Anguiano MD (Physician) Related Notes: Original Note by KRISHNA Waters (Nurse Practitioner) filed at 05/05 08/22 3036 Hospital Problem List: Active Problems: ESRD on [...] put on "an antibiotic" for pneumonia at [facility] ED. Was throwing up & could [...] the prelim submitted orders, MWF No acute STAFFING CONSULTANT indication ESTEFANY as indicated with HD Protein [...] 0555 Date of Service: 05/29/18553 Status: Signed Dinkey Engine Firer/Fireman: Vernell Weston RN (Registered Nurse) End of [...] 05/28/181940 Date of Service: 05/28/181939 Status: Signed Dinkey Engine Firer/Fireman: Saundra Hartley RN (Registered Nurse) No acute [...] 05/28/181721 Date of Service: 05/28/181720 Status: Signed [employer]key Engine Firer/Fireman: Cayden Caceres RN (Registered Nurse) UF 2 L with HD today. nthony Figueroa MD - 05/28/2018 12:26 PM PDTFormatting of this note might be different from the or iginal. Progress Notes by Anthony Figueroa MD at 05/28/18 1226 Author: Anthony Figueroa MD Service: Hospitalist Author Type: Physician Filed: 05/28/18 1233 Date of Service: 05/28/18 1226 Status: Signed Dinkey Engine Firer/Fireman: Anthony Figueroa MD (Physician) Hospitalist Progress Note Dara Louise 23 y.o. [id number] female [facility] Day: LOS: 2 days Patient Summary: 23-year-old female with past medical history of end-stage renal dis ease on hemodialysis Monday, hypertension, anemia of chronic disease who we nt to [facility] with increasing shortness of breath found to have right pleural e ffusion who was transferred to [facility] underwent right-sided diagnostic [...] Component Value Units Date/Time Culture, Body Fluid [[id number]] Collected: 05/26/18 3544 Specimen: Other from Ascites Fluid Updated: 05/28/18 1225 Specimen Description ASCITES FLUID GRAM STAIN STAIN PERFORMED ON CYTOSPIN GRAM STAIN WBC'S SEEN GRAM STAIN NO EPITHELIAL CELLS SEEN GRAM STAIN NO ORGANISMS SEEN CULTURE NO GROWTH 2 DAYS Culture, Body Fluid [[id number]] Collected: 05/26/18 141 Specimen: Body Fluid from Pleural Fluid Updated: 05/28/18 1223 Specimen Description PLEURAL FLUID CULTURE NO GROWTH 2 DAYS Comprehensive metabolic panel [[id number]] (Abnormal) Collected: 05/28/18922 Specimen: Blood Updated: 05/28/18 [...] (H) U/L EGFR 6 (L) mL/min/1.73m2 TSH [[id number]] Collected: 05/28/18922 Specimen: Blood Updated: 05/28/18 1210 TSH 1.270 uIU/mL Pathologist consult [[id number]] Collected: 05/26/18 141 Updated: 05/28/18 1113 Pathologist Consult -- Troponin I [[id number]] Collected: 05/28/18922 Specimen: Blood Updated: 05/28/18 1055 CBC W/Auto Diff (Reflex to Manual) [[id number]] Collected: 05/28/18922 Specimen: Blood Updated: 05/28/18 0939 Sputum culture [[id number]] Collected: 05/27/182014 Specimen: Sputum from Sputum Updated: 05/28/18902 Specimen Description SPUTUM GRAM STAIN LESS THAN 10 WBCS/LPF GRAM STAIN LESS THAN 10 SEC/LPF GRAM STAIN NO ORGANISMS SEEN CULTURE CULTURE IN PROGRESS Hepatitis panel, chronic [[id number]] (Abnormal) Collected: 05/27/181757 Updated: 05/27/182030 Hep A Total Ab REACTIVE (A) HEP B SURFACE AG NON REACTIVE HEP B CORE AB,TOTAL NON REACTIVE HEP B SURFACE ANTIBODY 3.27 (H) IV HEPATITIS C NON REACTIVE HEPATITIS INTERP Current or past HAV infection. Past HBV infection or vaccination. No ser ologic evidence of HCV infection. CBC w/auto diff (reflex to manual) [[id number]] (Abnormal) Collected: 05/27/18424 Specimen: Blood Updated: 05/27/18 [...] K/uL MORPHOLOGY 2+ Platelet Estimate DECREASED Phosphorus [[id number]] (Abnormal) Collected: 05/27/18424 Specimen: Blood Updated: 05/27/18 0629 PHOSPHORUS 8.0 (H) mg/dL Basic Metabolic Panel [[id number]] (Abnormal) Collected: 05/27/18424 Specimen: Blood Updated: 05/27/1829 SODIUM 135 mmol/L POTASSIUM 5.9 (H) mmol/L CHLORIDE 96 (L) mmol/L CO2 25 mmol/L ANION GAP AGAP 20 mmol/L GLUCOSE 74 mg/dL BUN 51 (H) mg/dL CREATININE 9.2 (H) mg/dL BUN/CREAT 6 CALCIUM 9.4 mg/dL EGFR 5 (L) mL/min/1.73m2 Magnesium [[id number]] (Abnormal) Collected: 05/27/18424 Specimen: Blood Updated: 05/27/18 0629 MAGNESIUM 2.7 (H) mg/dL Brain natriuretic peptide [[id number]] (Abnormal) Collected: 05/27/18424 Specimen: Blood Updated: 05/27/18 0546 BRAIN NATRIURETIC PEPTIDE 1,153.92 (H) pg/mL Respiratory Filmarray [[id number]] (Abnormal) Collected: 05/26/181805 Specimen: Nasopharynx/Oropharynx Updated: 05/26/182141 [...] performed by Molecular Methodology MRSA by PCR [[id number]] Collected: 05/26/18 180 Specimen: Nasopharyngeal from Nares(Nose) Updated: 05/26/182025 SOURCE NARES(NOSE) MRSA PCR NEGATIVE Procalcitonin [[id number]] (Abnormal) Collected: 05/26/18 1727 Updated: 05/26/18 1839 PROCALCITONIN 0.76 (H) ng/mL Albumin, Body Fluid [[id number]] Collected: 05/26/18 1412 Specimen: Body Fluid from Lung, Right Lower Lobe Updated: 05/26/18 1729 FLUID ALBUMIN 2.3 g/dL Total Protein, Body Fluid [[id number]] Collected: 05/26/18 1412 Specimen: Body Fluid from Lung, Right Lower Lobe Updated: 05/26/18 1729 FLUID TOTAL PROTEIN 4.2 g/dL FLUID TP SOURCE PLEURAL FLUID Cell count, Body Fluid [[id number]] Collected: 05/26/18 141 Specimen: Body Fluid from Lung, Right Lower Lobe Updated: 05/26/18 1708 FLUID TYPE PLEURAL FLUID COLOR SAMMIE APPEARANCE CLOUDY RBC'S 3,000 /mm3 TOTAL NUCLEATED CELLS 253 /mm3 NEUTROPHILS 22 % LYMPHOCYTES 8 % MONOCYTES/MACROPHAGES 65 % Mesothelial Cells 5 % CELLS COUNTED 100 pH, Body Fluid [[id number]] Collected: 05/26/18 1412 Specimen: Body Fluid from Lung, Right Lower Lobe Updated: 05/26/18 1508 FLUID PH 7.45 Procalcitonin [[id number]] (Abnormal) Collected: 05/26/18 1214 Updated: 05/26/18 1330 PROCALCITONIN 0.56 (H) ng/mL Cardiac Panel [[id number]] (Abnormal) Collected: 05/26/18 1214 Updated: 05/26/18 1312 [...] ng/mL CK-MB Index 2.7 Brain natriuretic peptide [[id number]] (Abnormal) Collected: 05/26/18 1214 Updated: 05/26/18 1254 [...] radiologist report and is used for image [facility] Echo Cardiac Adult Complete Result Date: 05/27/2018 [...] 17. The mitral valve is normal. 18. Hanf-bx-fsiolcfa eccentric mitral regurgitation i s present. 19. [...] mitral valve is normal. Mitral Kait ve: Dxmz-ot-bugfxddl eccentric mitral regurgitation is present. Tricuspid Valve: [...] MV DecT: 117.65 ms M V E Shhaid: 0.80 m/s MV E/A Ratio: 1.46 Septal e': 0.03 m/s Septal E/e': 26.26 Lateral e': 0.04 m/s Lateral E/e': 16.81 RV S': 0.07 m/s TR maxP.08 mmHg TR Vmax: 2.7 4 m/s Subway Car Repairer: MOO Authenticated by: Robel Yusuf MD Report [...] 17. The mitral valve is normal. 18. Edcu-ah-nryto ate eccentric mitral regurgitation is present. 19. [...] 05/28/1808 Date of Service: 05/28/18703 Status: Signed Dinkey Engine Firer/Fireman: Timothy Butler RN (Registered Nurse) Pt A&Ox4 [...] 05/27/181957 Date of Service: 05/27/181954 Status: Signed [employer]key Engine Firer/Fireman: Vernell Weston RN (Registered Nurse) Called into [...] 05/27/181924 Date of Service: 05/27/181922 Status: Signed Din[employer] Engine Firer/Fireman: Saundra Hartley RN (Registered Nurse) Pt has [...] Author: DORON Ashby Service: (none) Author Type: Secy Filed: 05/27/181533 Date of Service: 05/27/181529 Status: Signed Dinkey Engine Firer/Fireman: DORON Ashby (Secy) 05/27/181529 Discharge Planning Evaluation Admitting Diagnosis SOB [...] Patient/Family concerns No Met with Dara Louise ([phone]) and discussed discharge planning. Pt is a 23 y.o., female who resides alone in [place], [place]. Pt states that she has supportive family and frie nds. Pt's mother lives 50 miles away; pt's sister lives 15 minutes away. Pt is independent and does not have a caregiver. Patient's PCP is: TIEN NICHOLSON Patient's insurance: Medicare and Medicaid Coverage concerns: None Medication coverage/concerns: None Community resources utilized / needed: Pt does outpatient dialysis at [place] in [facility] on Monday, Monday and Monday Assistance in [...] Service: Hospitalist Author Type: Physician Filed: 05/27/18 4776 Date of Service: 05/27/18 1325 Status: Signed Dinkey Engine Firer/Fireman: Anthony Figueroa MD (Physician) Hospitalist Progress Note Dara Lundberg Shiraz 23 y.o. [id number] female [facility] Day: LOS: 1 day Patient Summary: 23-year-old female with past medical history of end-stage renal dis ease on hemodialysis Monday, hypertension, anemia of chronic disease who we nt to [facility] with increasing shortness of breath found to have right pleural e ffusion who was transferred to [facility] underwent right-sided diagnostic [...] Date/Time CBC w/auto diff (reflex to manual) [[id number]] (Abnormal) Collected: 05/27/18424 Specimen: Blood Updated: 05/27/18710 [...] K/uL MORPHOLOGY 2+ Platelet Estimate DECREASED Phosphorus [[id number]] (Abnormal) Collected: 05/27/18424 Specimen: Blood Updated: 05/27/18628 PHOSPHORUS 8.0 (H) mg/dL Basic Metabolic Panel [[id number]] (Abnormal) Collected: 05/27/18424 Specimen: Blood Updated: 05/27/18628 SODIUM 135 mmol/L POTASSIUM 5.9 (H) mmol/L CHLORIDE 96 (L) mmol/L CO2 25 mmol/L ANION GAP AGAP 20 mmol/L GLUCOSE 74 mg/dL BUN 51 (H) mg/dL CREATININE 9.2 (H) mg/dL BUN/CREAT 6 CALCIUM 9.4 mg/dL EGFR 5 (L) mL/min/1.73m2 Magnesium [[id number]] (Abnormal) Collected: 05/27/18424 Specimen: Blood Updated: 05/27/18 0629 MAGNESIUM 2.7 (H) mg/dL Brain natriuretic peptide [[id number]] (Abnormal) Collected: 05/27/18424 Specimen: Blood Updated: 05/27/18 0546 BRAIN NATRIURETIC PEPTIDE 1,153.92 (H) pg/mL Respiratory Filmarray [[id number]] (Abnormal) Collected: 05/26/181805 Specimen: Nasopharynx/Oropharynx Updated: 05/26/182141 [...] performed by Molecular Methodology MRSA by PCR [[id number]] Collected: 05/26/181805 Specimen: Nasopharyngeal from Nares(Nose) Updated: 05/26/182025 SOURCE NARES(NOSE) MRSA PCR NEGATIVE Procalcitonin [[id number]] (Abnormal) Collected: 05/26/18 1727 Updated: 05/26/18 183 PROCALCITONIN 0.76 (H) ng/mL Culture, Body Fluid [[id number]] Collected: 05/26/18 141 Specimen: Body Fluid from Pleural Fluid Updated: 05/26/18 181 Pathologist consult [[id number]] Collected: 05/26/181411 Updated: 05/26/18 174 Albumin, Body Fluid [[id number]] Collected: 05/26/181411 Specimen: Body Fluid from Lung, Right Lower Lobe Updated: 05/26/18 172 FLUID ALBUMIN 2.3 g/dL Total Protein, Body Fluid [[id number]] Collected: 05/26/18 1412 Specimen: Body Fluid from Lung, Right Lower Lobe Updated: 05/26/18 1729 FLUID TOTAL PROTEIN 4.2 g/dL FLUID TP SOURCE PLEURAL FLUID Cell count, Body Fluid [[id number]] Collected: 05/26/18 1412 Specimen: Body Fluid from Lung, Right Lower Lobe Updated: 05/26/18 1708 FLUID TYPE PLEURAL FLUID COLOR SAMMIE APPEARANCE CLOUDY RBC'S 3,000 /mm3 TOTAL NUCLEATED CELLS 253 /mm3 NEUTROPHILS 22 % LYMPHOCYTES 8 % MONOCYTES/MACROPHAGES 65 % Mesothelial Cells 5 % CELLS COUNTED 100 Culture, Body Fluid [[id number]] Collected: 05/26/18 1513 Specimen: Other from Ascites Fluid Updated: 05/26/18 1631 Specimen Description ASCITES FLUID GRAM STAIN STAIN PERFORMED ON CYTOSPIN GRAM STAIN WBC'S SEEN GRAM STAIN NO EPITHELIAL CELLS SEEN GRAM STAIN NO ORGANISMS SEEN CULTURE PENDING pH, Body Fluid [[id number]] Collected: 05/26/18 141 Specimen: Body Fluid from Lung, Right Lower Lobe Updated: 05/26/18 1508 FLUID PH 7.45 Procalcitonin [[id number]] (Abnormal) Collected: 05/26/18 1214 Updated: 05/26/18 1330 PROCALCITONIN 0.56 (H) ng/mL Cardiac Panel [[id number]] (Abnormal) Collected: 05/26/18 1214 Updated: 05/26/18 1312 [...] ng/mL CK-MB Index 2.7 Brain natriuretic peptide [[id number]] (Abnormal) Collected: 05/26/18 1214 Updated: 05/26/18 1254 [...] radiologist report and is used for image [employer] only PROBLEM LIST Active Problems: ESRD on [...] 05/27/18546 Date of Service: 05/27/18543 Status: Signed Dinkey Engine Firer/Fireman: Vernell Weston RN (Registered Nurse) End of [...] 05/26/181950 Date of Service: 05/26/181947 Status: Signed Dinkey Engine Firer/Fireman: Saundra Hartley, RN (Registered Nurse) Pt complained [...] 05/26/181804 Date of Service: 05/26/181804 Status: Signed Dinkey Engine Firer/Fireman: Jae Gutierres RPH (Pharmacist) Renal Dosing Monitoring: [...] E | | | | | | [place] [address] | | | | | | [phone] | | | | | | | [...] | | | | | | at [facility], [address] | | | | | | [facility], | | | | | | [place] [address] | | | | | |Testing performed at [facility], [address] [facility], [place] [address] | | | | | | | [...] [place], | | | | | | [place], [place] [address] | | | | + + + [...] | | | | | | at [facility], [address] | | | | | | [facility], | | | | | | [place] [address] | | | | | |Testing performed at [facility], [address] [facility], [place] [address] | | | | | | | [...] | | | | | performed at [facility], [address] | | | | | | [facility] [place], | | | | | | [place] [address] | | | | + + + [...] | | | | | | at [facility], [address] | | | | | | [facility], | | | | | | [place] [address] | | | | | |Testing performed at [facility], [address] [facility], [place] [address] | | | | | | | [...] | | | | | performed at [facility], [address] | | | | | | [address] [facility], | | | | | | [place] [address] | | | | + + + [...] | EXTERNAL LAB | | not a athletic monitor validated sample type for this method. No reference | | | ranges have been established. Testing performed at [facility], [address] | | | [place] [address] | | + + + + +---------+ [...] EXTERNAL LAB | | is not a athletic monitor validated sample type for this method. No | | | reference ranges have been established. Testing performed at [facility], | | | [address] [facility] [place] [address] | | + + + + +---------+ [...] | | space is punctured with an 8-Bermudian thoracentesis catheter. Fluid is | | | [...] the pleural space is punctured with an 8-Bermudian | | thoracentesis catheter. Fluid is aspirated [...] | | | Patient | performed at [facility];[address] | | LAB | | | | [address];[place], [place] | | | | | | [address] | | | | + + + [...] | | | | | performed at [facility] | | | | | | [address];[place], [place] | | | | | | [address] | | | | + + + [...] | | | | | | at [facility], [address] | | | | | | [employer], | | | | | | [place] [address] | | | | | |Testing performed at [facility], [address] [place] [address] | | | | | | | [...] | | | | | performed at [facility], [address] | | | | | | [address], | | | | | | [place] [address] | | | | + + + [...] at | | | | | | [facility];[address] [place] [address] | | | | | | [facility];[place] [address] | | | | + + + [...] at | | | | | | [facility], [address] [facility] | | | | | | [place] | | | | | | [address] | | | | + + + [...] | | | | | performed at [facility], [address] | | | | | | [address] [facility], | | | | | | [place] [address] | | | | + + + [...] | | | | | performed at [facility];[address] | | | | [address];[place], [place] | | | | | | [address] | | | | + + + [...] + + | Historically converted procedure from [facility] environment | EXTERNAL LAB | + [...] at | | | | | | [facility];[address] [facility] | | | | | | Bl;[place] [address] | | | | + + + [...] | | | | | | [place] [address] | | | | + + + [...] | | | | | | at [facility], [address] | | | | | | [employer] [facility], | | | | | | [place] [address] | | | | | |Testing performed at [facility], [address] [place] [address] | | | | | | | [...] | | | | | [place] [address] | | | | + + + [...] | | | QUALITATIVE | performed at [facility], [address] | | LAB | | | | [address], | | | | | | [place] [address] | | | | + + + [...] EXTERNAL | | | | performed at [facility], [address] | uIU/mL | LAB | | | | [place], | | | | | | [place] [address] | | | | + + + [...] | | | | | performed at [facility], [address] | | | | | | [facility], | | | | | | [place] [address] | | | | + + + [...] | | | preparation was performed by [employer], [address] [place] [address] | | | [place] [address] (Aircraft Instrument Engineer: Matt Claudio D.O.; | | | CLIA#: [id number]). Professional interpretation was performed by | | | [employer], [facility], [address] [place] [address], | | | [place] [address] (Aircraft Instrument Engineer: Daniel Larson M.D.; | | | CLIA#: [id number]).6 Diagnostician: Marie BROOKS ([facility]) | | | Web Ui Designer Diagnostician: Anahy Da Silva MD Pathologist | [...] at | | | | | | [facility], [address] | | | | | | [place] | | | | | | [address] | | | | + + + [...] valve is normal. 18. | | | Xvpt-wr-ejcugnen eccentric mitral regurgitation is present. 19. | [...] valve is normal. 18. | | | Gasd-ki-pvsiwlgv eccentric mitral regurgitation is present. 19. | [...] is | | | normal. Mitral Valve: Hcex-xd-keacqmpt eccentric mitral regurgitation | | | is [...] TR Vmax: 2.74 m/s | | | Subway Car Repairer: MOO Authenticated by: Robel Yusuf MD Report [...] aortic stenosis.17. The mitral valve is normal.18. Tldm-yv-lbnocibn | | eccentric mitral regurgitation is present.19. [...] | | arch are normal.26. No mass iemcebbnwb68. No clot visualized FINDINGS--------ECG | | rhythm: [...] mitral valve is normal.Mitral Valve: | | Ezlk-nb-siceeevg eccentric mitral regurgitation is present.Tricuspid Valve: Severe [...] mlLAESV Index (A-L): 30.43 ml/m2LAAs A2C: 20.97 [id number] | | A-L A2C: 65.71 mlLALs A2C: 5.68 cmLAAs A4C: 19.94 [id number] A-L A4C: 60.20 mlLALs | | A4C: 5.60 cmTAPSE: 1.58 cmHR: 79.62 BPMAV maxP.06 mmHgAV meanP.71 | | mmHgAV Vmax: 1.23 m/Elizabeth Vmean: 0.92 m/Elizabeth VTI: 20.07 cmAVA Vmax: 1.74 cm2AVA | | (VTI): 1.93 au4HHMM Vmax: 0.00 cm2/m2AVAI (VTI): 0.00 cm2/m2LVOT maxP.22 [...] maxP.08 | | mmHgTR Vmax: 2.74 m/s Subway Car Repairer: Brodyted by: Robel Palacios | | Date/Time: [...] The mitral valve is | | normal.18. Lpdj-zq-nislzwdx eccentric mitral regurgitation is present.19. Severe | [...] and aortic arch are normal.26. No mass segsxovhno33. No clot visualized | |LVPWd: 1.27 cm [...] |TR Vmax: 2.74 m/s | | | |Subway Car Repairer: MOO | |Authenticated by: Robel Yusuf MD [...] The mitral valve is normal. | |18. Kdbq-mf-sdyeeijb eccentric mitral regurgitation is present. | |19. [...] | | LAB | | | | [facility];[address] | | | | | | [place] [address] | | | | + + + [...] EXTERNAL | | | | performed at [facility], [address] | | LAB | | | | [place], | | | | | | [place] [address] | | | | + + + [...] | | LAB | | | | [facility] [address] | | | | | [address];[place] [address] | | | | + + + [...] EXTERNAL | | | | performed at [facility], [address] | | LAB | | | | [place], | | | | | | [place] [address] | | | | + + + [...] | | | | | performed at [facility], [address] | | | | | | [facility], | | | | | | [place] [address] | | | | + + + [...] Methodology | | | Testing performed at [facility], [address] [place], [place] | | | [address] | | + + + + +---------+ [...] NEGATIVE Testing | | | performed at [facility];[address] [place] [address];[place] [address] | | + + + + +---------+ [...] | | | | | | at [facility];[address] [place] [address] | | | | | | [facility];[place] [address] | | | | + + + [...] AT 1702: | | | PREVIOUSLY REPORTED <[id number] TOTAL NUCLEATED CELLS | | | 253 CORRECTED RESULTS CALLED TO DR. GLASS IN ED AT | | | 1705 BY LGJ CORRECTED ON 05/26 AT 1702: PREVIOUSLY REPORTED 374 | | | NEUTROPHILS 22 | | | LYMPHOCYTES 8 | | | MONOCYTES/MACROPHAGES 65 Mesothelial | | | Cells 5 CELLS COUNTED | | | 100 Testing performed at [facility];[address] | | | [address] [facility];[place] [address] | | + + + + +---------+ [...] | EXTERNAL LAB | | not a athletic monitor validated sample type for this method. No reference | | | ranges have been established. Testing performed at [facility], [address] | | | [place] [address] FLUID TP SOURCE | | | PLEURAL FLUID Testing performed at [facility];[address] | | | [place] [address] | | + + + + +---------+ [...] | EXTERNAL LAB | | not a athletic monitor validated sample type for this method. No | | | reference ranges have been established. Testing performed at [facility], | | | [address] [place] [address] | | + + + + +---------+ [...] EXTERNAL LAB | | Testing performed at [facility];[address] [place] [address];[place] [address] | | + + + + +---------+ [...] | | | | | | at [facility];[address] [place] [address] | | | | | | [facility];[place] [address] | | | | + + + [...] | | | | | | at [facility];[address] [place] [address] | | | | | | Bl;[place] [address] | | | | + + + [...] | | LAB | | | | [facility];[address] | | | | | | [place] [address] | | | | + + + [...]
--- OUTSIDE RECORDS SUMMARY | ~2019-03-08 | XMS | Encounter Summary ---
Demographics + + + | Address | [address] | | | [place] [address] | + + + | Home Phone [...] Author | [facility] | | | and [place]ana | + + + | Organization | [facility] [...] Team Providers + +------+ + | Care Principal Java Software Engineer Name | Role | Phone [...] | NEPHROLOGY [address] | | | | | [address] | [address] [place] | | | | | [place], [place] | [place] [address] | | | | | [address] | [phone] | | | | | [phone] | | | +--------+ + + + [...] | | | | | [place] [address] | | | | | | [phone] | | | | | | | | +--------+---------+ + + + documented as of this encounter Visit Diagnoses Not on filedocumented in this encounter"
--- OUTSIDE RECORDS SUMMARY | ~2019-03-08 | XMS | Encounter Summary ---
Demographics + + + | Address | [address] | | | [place] [address] | + + + | Home Phone [...] | | | | | [place] [address] | | + + + + + | Thania Mallory | ECON | [address] | | | | | [place] [address] | | + + + + + | Deidra Weldon | ECON | [address] | | | | | [place] | | | | | [address] | | + + + + + Care Team Providers + +------+ + | Care Vinyl Hanger Name | Role | Phone | + [...] | | | | | [address] [facility] | [facility] | | | | | [facility], | [place], [place] | | | | | [place] [address] | [address] | | | | | [phone] | | | +--------+ + + + [...] Denise | | | | | | [place], [place] | | | | | | [address] | | | | | | [phone] | | | | | | | | +--------+ + + + + documented as of this encounter Visit Diagnoses Not on filedocumented in this encounter"
--- OUTSIDE RECORDS SUMMARY | ~2019-03-08 | XMS | Encounter Summary ---
Demographics + + + | Address | [address] | | | [place] [address] | + + + | Home Phone [...] + | Author | [facility] | | | and [place] | + + + | Organization | [facility] | | | and Josephana [...] Team Providers + +------+ + | Care Facepiece Line Supervisor Name | Role | Phone | [...] | | | | [address]) End | [place], [place] | [place], [place] | | | | | stage renal | [address] | [address] Phone: | | | | | disease | Phone: | [phone] | | | | | ([facility]) | [phone] | Fax: | | | | | Infection | Fax: | [phone] | | | | | and | [phone] | | | | | | inflammatory | | | | | | | reaction | | | | | | | due to | | | | | | | peritoneal | | | | | | | dialysis | | | | | | | catheter | | | | | | | Procedures | | | | | | | [place] OFFICE | | | | | | [...] | | [address] | [place], [address] | (Primary Dx); | | | | [place], [place] | [place], [place] | Anemia in ESRD | | | | [address] | [address] | (end-stage renal | | | | [phone] | | disease) ([facility]) | +--------+ + + + + Social [...] recheck her Hb in one week. CC: Henefer Fina Joy MD, [facility], [facility] Blake Chavarria MD, FACS documented in [...] [address] | | | | | | [place] [address] | | | | | | [phone] | | | | | | | [...]
--- OUTSIDE RECORDS SUMMARY | ~2019-03-08 | XMS | Encounter Summary ---
Demographics + + + | Address | [address] | | | [place] [address] | + + + | Home Phone [...] + | Author | [facility] | | | and Josephana | + + + | Organization | [facility] | | | and Josephana [...] Team Providers + +------+ + | Care Client Care Coordinator Name | Role | Phone | [...] | | | | [address] | [place], [place] | [place], [place] | | | | | stage renal | [address] | [address] Phone: | | | | | disease | Phone: | [phone] | | | | | ([facility]) | [phone] | Fax: | | | | | Infection | Fax: | [phone] | | | | | and | [phone] | | | | | | inflammatory [...] + + + + | 02/24/ | Off-Site | [facility] [place] | Jorje Camp | ESRD (end stage | | 2014 | Visit | NEPHROLOGY [address] | M, DO [address] | renal disease) ([facility]) | | | | [address] | [place], [address] | (Primary Dx); | | | | [place], [place] | [place], [place] | Anemia in ESRD | | | | [address] | [address] | (end-stage renal | | | | [phone] | | disease) ([facility]) | +--------+ + + + [...] + + + | Blood Pressure | 149/80 | 02/24/2014 2:08 PM | | | | | PST | | + + + + + | Pulse | - | - | | + + + + + | Temperature | 36.5 C (97.7 F) | 02/24/2014 2:08 PM | | | | | PST [...] encounter Progress Notes Jorje Camp DO - 03/29/2014 2:09 PM PST Subjective: DIALYSIS NOTE Patient ID: Dara Weldon is a 19 y.o. female. 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 She also has anemia secondary to CKD, S HPTH, centripetal obesity, and is active and living independently with her parents. apparently air was some contraindication to her father becoming a successful donor. There fore she has had construction of [place] radio cephalic fistula in her left arm today. She was discharged to the outpatient clinic today for her scheduled treatment. She has tolerate d it very well. Outpatient Prescriptions Marked as Taking for the 02/24/14 encounter (Off-Site Visit) with Jorje Camp DO Medication Sig Dispense Refill cholecalciferol [...] tablet by mouth Daily. 60 tablet 4 HYDROcodone-acetaminophen (NORCO) 5-325 mg per tablet Take 1-2 tablets by mouth every 4 hours as needed for [...] tapes Morphine Itching and Rash Objective: BP 149/80 | Temp 36.5 C (97.7 F) EDW 95.5 kg Physical Exam Heart: Regular rate and rhythm with no S3, S4, murmur or rub. Lungs: CTA bilaterally. No rales or wheezes. Abdomen: Soft, obese, nontender, normoactive bowel sounds. Extremities: No clubbing, cyanosis, or edema. There is a (+) breathing over the dressing o n the left arm which is dry and intact. LAB: BUN 60, Cr 9.9, K+ 4.6, HCO3 23, Ca++ 9.0, PO4 4.9, PTH 233, Alb 4.0, Hb 10.8, T Sat. = 25 %, Ferritin 507, eKT/V = 1.40. Assessment: 1. ESRD she appears well dialyzed on 4 hours, 2K +, QB 425, daily 500, R21 dialyzer. 2. Hypertension--good control at her current dry weight. 3. SHPTH--her PTH is excellent on her current dose of Sensipar and Hectorol. She is very conscientious about her phosphorus restriction. 4. Nutrition--she has an excellent appetite, and states that she rarely eats fast food. 5. Transplantation--she appears to be matriculating well through her last your high school . Otherwise, I think she would make a mature, appropriate candidate for a living or d donor allograft. 6. Anemia--her iron stores appear adequate. Her Hb appears stable on the current anemia a lgorithm. Plan: 1. I encouraged she'll be that she made an excellent choice of placing a permanent fistula . She understands not to have any blood draws, or BP's in this arm. 2. She appears to be fairly compliant with her diet, phosphorus restriction, and attendanc e of all prescribed treatments. 3. Will continue her EPO at the current dose. We'll recheck her in 2 weeks. I greatly ap preciate Dr. Blkae Chavarria's help with her permanent AVF. C: Canones Fina Joy MD, [facility], [facility] documented in thi s encounter Plan [...] [address] | | | | | | [place] [address] | | | | | | [phone] | | | | | | | [...]
--- OUTSIDE RECORDS SUMMARY | ~2019-03-08 | XMS | Encounter Summary ---
Demographics + + + | Address | [address] | | | [place] [address] | + + + | Home Phone [...] | | | | | [place] [address] | | + + + + + | Thania Mallory | ECON | [address] | | | | | [place] [address] | | + + + + + | Deidra Weldon | ECON | [address] | | | | | [place] | | | | | [address] | | + + + + + Care Team Providers + +------+ + | Care Machine Clothing Man Name | Role | Phone | + [...] | | | [address] | [facility] | | | | | [facility], | [place], [place] | | | | | [place] [address] | [address] | | | | | [phone] | | | +--------+ + + + [...] | | | | | | [place] | | | | | | [address] | | | | | | [phone] | | | | | | | | +--------+ + + + + documented as of this encounter Visit Diagnoses Not on filedocumented in this encounter"
--- OUTSIDE RECORDS SUMMARY | ~2019-03-08 | XMS | Encounter Summary ---
Demographics + + + | Address | [address] | | | [place] [address] | + + + | Home Phone [...] + + + | Author | [facility] | | | and [place]ana | + + + | Organization | [facility] | | [...] Team Providers + +------+ + | Care Pt Skilled Name | Role | Phone | + [...] Refill | [facility] [place] | Jorje Capm | Medication Refill | | 2017 | | NEPHROLOGY [address] | M, DO [address] | | | | | [address] | [place], [address] | | | | | [place], [place] | [place], [place] | | | | | [address] | [address] | | | | | [phone] | | | +--------+--------+ + + + [...] | | | | | [place] [address] | | | | | | [phone] | | | | | | | | +--------+---------+ + + + documented as of this encounter Visit Diagnoses Not on filedocumented in this encounter"
--- OUTSIDE RECORDS SUMMARY | ~2019-03-08 | XMS | Encounter Summary ---
Demographics + + + | Address | [address] | | | [place] [address] | + + + | Home Phone [...] | | | | | [place] [address] | | + + + + + | Thania Mallory | ECON | [address] | | | | | [place] [address] | | + + + + + | Deidra Weldon | ECON | [address] | | | | | [place] | | | | | [address] | | + + + + + Care Team Providers + +------+ + | Care Planer Operator / Grader Name | Role | Phone | [...] Query) | | | | Caro [place], | [place], [place] | | | | | [place] [address] | [address] | | | | | [phone] | [phone] | | | | | | | [...] [place] | | | | | | [address] | | | | | | [phone] | | | | | | | | +--------+ + + + + documented as of this encounter Visit Diagnoses Not on filedocumented in this encounter"
--- OUTSIDE RECORDS SUMMARY | ~2019-03-08 | XMS | Encounter Summary ---
Demographics + + + | Address | [address] | | | [place] [address] | + + + | Home Phone [...] Author | [facility] | | | and Josephana | + + + | Organization | [facility] | | | and Josephana [...] + +------+ + | Care Solar Installation Helper Name | Role | Phone | [...] | | [address] | [place], [address] | | | | | [place], [place] | [place], [place] | | | | | [address] | [address] | | | | | [phone] | | | +--------+--------+ + + + [...] | | | | | [place] [address] | | | | | | [phone] | | | | | | | | +--------+---------+ + + + documented as of this encounter Visit Diagnoses Not on filedocumented in this encounter"
--- OUTSIDE RECORDS SUMMARY | ~2019-03-08 | XMS | Encounter Summary ---
Demographics + + + | Address | [address] | | | [place] [address] | + + + | Home Phone [...] | [facility] | | | and Josephana | + + + | Organization | [facility] | | | and Josephana [...] Providers + +------+ + | Care Senior Test Engineer Name | Role | Phone | [...] + | 03/05/ | Clinical | [facility] | Blake Chavarria | End stage renal | | 2013 | Support | SURGERY [address] | MD Antonieta, FACS [address] | failure on dialysis | | | | [place], [place] | [facility] | ([facility]) (Primary Dx) | | | | [address] | [place] [address] | | | | | [phone] | [phone] | | | | | | | [...] Daniela John RN - 03/05/2014 8:36 AM Earline is here with her Dad. Left arm [...] | | | | | | [place] [address] | | | | | | [phone] | | | | | | | | +--------+---------+ + + + documented as of this encounter Visit Diagnoses + + | Diagnosis | + + | End stage renal failure on dialysis (HCC) - Primary End stage renal disease | + + documented in this encounter"
--- OUTSIDE RECORDS SUMMARY | ~2019-03-08 | XMS | Encounter Summary ---
Demographics + + + | Address | [address] | | | [place] [address] | + + + | Home Phone [...] + + + | Author | [facility] | | | and [place]ana | + + + | Organization | [facility] | [...] Team Providers + +------+ + | Care Engraver Hand [employer] Metals Name | Role | Phone | + [...] | NEPHROLOGY [address] | [address] | | | | | [address] | [address] [place] | | | | | [place], [place] | [place] [address] | | | | | [address] | [phone] | | | | | [phone] | | | +--------+--------+ + + + [...] | 2019 | Visit | | Deny Brigsg MD [address] | | | | | | [address] | | | | | | [place] [address] | | | | | | [phone] | | | | | | | | +--------+---------+ + + + documented as of this encounter Visit Diagnoses Not on filedocumented in this encounter"
--- OUTSIDE RECORDS SUMMARY | ~2019-03-08 | XMS | Encounter Summary ---
[...] Author + + + | Author | [facility] | | | and [place]ana | + + + | Organization | [facility] [...] Providers + +------+ + | Care Director Name | Role | Phone | + +------+ + PCP | Unavailable | + +------+ + Encounter Details +--------+ + + + + | Date | Type | Department | Care Team | Description | +--------+ + + + + | 06/24/ | Hospital | [facility] | Rik Simon MD | | | 2015 | Encounter | [facility] | [address] | | | | | [address] | [place], [place] | | | | | [place], [place] | [address] | | | | | [address] | [phone] | | | | | [phone] | | | +--------+ + + + [...] + + +---------+ + + | epoetin andres | Inject 0.4 mLs | | 0 [...] + + +---------+ + + | Epoetin Andres | 2,200 Units by IV | | [...] Progress Notes Conversion Transaction, Provider Unknown - 06/24/2014 1:41 PM PDTFormatting of this note m ight be different from the original. Progress Notes by Merlin Carter RPH at 06/24/141340 Author: Merlin Carter RPH Service: (none) Author Type: Pharmacist Filed: 06/24/141340 Date of Service: 06/24/141340 Status: Signed Machine Heddle Cleaner: Merlin Carter RPH (Pharmacist) Clinical Pharmacy Note: Renal Monitoring Dara Weldon 19 y.o. female Ht Readings from Last 1 Encounters: 06/24/14 1.702 m (5' 7") (86 %*, Z = 1.09) * Growth percentiles are based on CDC 2-20 Years data. Wt Readings from Last 1 Encounters: 06/24/14 99.6 kg (219 lb 9.3 oz) (99 %*, Z = 2.20) * Growth percentiles are based on CDC 2-20 Years data. CREATININE Date Value Ref Range Status 06/24/2014 7.55* 0.50 - 1.00 mg/dL Final Testing performed at [facility];[address];[place] [address] CREATININE: 7.55 mg/dL ABNORMAL (06/24/14 1045) Estimated creatinine clearance - 14.7 mL/min Pharmacy dosing for renal function per Dr. Simon. Currently, there are no medications needing to be adjusted. Pharmacy will continue to monit or for changes in medication orders and in renal function and adjust accordingly. Merlin Carter [facility] 06/24/2014 1:41 PM docume nted in this encounter Plan [...] [address] | | | | | | [place] [address] | | | | | | [phone] | | | | | | | | +--------+---------+ + + + documented as of this encounter Procedures + +--------+ + + + | Procedure Name | Priori | Date/Time | Associated Diagnosis | Comments | | | ty | | | | + +--------+ + + + | PROTIME INR | Routin | 06/24/2014 | | Results for this | | | e | 10:45 AM | | procedure are in the | | | | PDT | | results section. | + +--------+ + + + | TYPE AND SCREEN | Routin | 06/24/2014 | | Results for this | | | e | 10:45 AM | | procedure are in the | | | | PDT | | results section. | + +--------+ + + + | , SERUM, | Routin | 06/24/2014 | | Results for this | | QUAL | e | 10:45 AM | | procedure are in the | | | | PDT | | results section. | + +--------+ + + + | BASIC METABOLIC | Routin | 06/24/2014 | | Results for this | | PANEL | e | 10:45 AM | | procedure are in the | | | | PDT | | results section. | + +--------+ + + + documented in this encounter Results Type and Screen (06/24/2014 10:45 AM PDT) + + + + + [...] LAB | | | | [address];[place] [address] | | | | + + + + + + | Antibody | NEGATIVE | | EXTERNAL | | | Screen | | | LAB | | + + + + + + | Antibody | Testing performed at | | EXTERNAL | | | Screen | [facility] | | LAB | | | | [address];[place] [address] | | | | + + + + + + | BB BAND | [id number] | | EXTERNAL | | | | | | LAB | | + + + + + + | BB BAND | Testing performed at | | EXTERNAL | | | | [facility];[address] | | LAB | | | | [address];[place] [address] | | | | + + + + + + + + | Specimen | + + | Blood specimen | | (specimen) | + + + +---------+ + + | Performing | Address | City/State/Zipcode | Phone Number | | Organization | | | | + +---------+ + + | EXTERNAL LAB | | | | + +---------+ + + Protime INR (06/24/2014 10:45 AM PDT) + + + + + + | Component | Value | Ref Range | Performed | Pathologist | | | | | At | Signature | + + + + + + | INR | 1.3Comment: REFERENCE | | EXTERNAL | | | [...] | | | | performed at [facility] | | | | | | [facility];[place], [place] | | | | | | [address] | | | | + + + [...] + +---------+ + + , Serum, Qual (06/24/2014 10:45 AM PDT) + + + + + + | Component | Value | Ref Range | Performed | Pathologist | | | | | At | Signature | + + + + + + | HCG | NEGATIVEComment: Testing | | EXTERNAL | | | QUALITATIVE | performed at [facility] | | LAB | | | | [address];[place], [place] | | | | | | [address] | | | | + + + [...] + +---------+ + + Basic Metabolic Panel (06/24/2014 10:45 AM PDT) + + + + + + | Component | Value | Ref Range | Performed | Pathologist | | | | | At | Signature | + + + + + + | Na | 136Comment: Testing | 135 - 143 | EXTERNAL | | | | performed at [facility];[address] | mmol/L | LAB | | | | [address];[place], [place] | | | | | | [address] | | | | + + + + + + | K | 4.3Comment: Testing | 3.5 - 4.9 | EXTERNAL | | | | performed at [facility];[address] | mmol/L | LAB | | | | [address];[place] | | | | | | [address] | | | | + + + + + + | Cl | 101Comment: Testing | 99 - 109 mmol/L | EXTERNAL | | | | performed at [facility];[address] | | LAB | | | | [address];[place] | | | | | | [address] | | | | + + + + + + | CO2 | 23Comment: Testing | 23 - 32 mmol/L | EXTERNAL | | | | performed at [facility];[address] | | LAB | | | | [address];[place] | | | | | | [address] | | | | + + + + + + | Anion Gap | 16Comment: Testing | 5 - 20 mmol/L | EXTERNAL | | | | performed at [facility];[address] | | LAB | | | | [address];[place] | | | | | | [address] | | | | + + + + + + | Glucose, | 84Comment: Testing | 65 - 99 mg/dL | EXTERNAL | | | Fasting | performed at [facility];[address] | | LAB | | | | [address];[place] | | | | | | [address] | | | | + + + + + + | BUN | 40 (H)Comment: Testing | 8 - 25 mg/dL | EXTERNAL | | | | performed at [facility];[address] | | LAB | | | | [address];[place] | | | | | | [address] | | | | + + + + + + | Creatinine | 7.55 (H)Comment: Testing | 0.50 - 1.00 | EXTERNAL | | | | performed at [facility];[address] | mg/dL | LAB | | | | [address];[place] | | | | | | [address] | | | | + + + + + + | BUN/Creatin | 5Comment: Testing | | EXTERNAL | | | ine Ratio | performed at [facility];[address] | | LAB | | | | [address];[place] | | | | | | [address] | | | | + + + + + + | Calcium | 9.8Comment: Testing | 8.5 - 10.5 | EXTERNAL | | | | performed at [facility];[address] | mg/dL | LAB | | | | [address];[place] | | | | | | [address] | | | | + + + + + + | Estimated | CALCULATION NOT | mL/min/1.73m2 | EXTERNAL | | | GFR | PERFORMED. RESULT NOT | | LAB | | | | VALID IF AGE LT 20 | | | | | | YEARS.Comment: Testing | | | | | | performed at [facility];[address] | | | | | | [address];[place] | | | | | | [address] | | | | + + + [...]
--- OUTSIDE RECORDS SUMMARY | ~2019-03-08 | XMS | Encounter Summary ---
Demographics + + + | Address | [address] | | | [place] [address] | + + + | Home Phone [...] | [facility] | | | and [place] | + + + | Organization | [facility] | [...] Providers + +------+ + | Care Automotive Title Clerk Name | Role | Phone | [...] | NEPHROLOGY [address] | renal disease) ([facility]) | | | | [address] | [address] [place] | (Primary Dx); | | | | [place], [place] | [place] [address] | Secondary | | | | [address] | [phone] | hyperparathyroidism | | | | [phone] | | ([facility]); | | | [...] | | | | | [place] [address] | | | | | | [phone] | | | | | | | [...]
--- OUTSIDE RECORDS SUMMARY | ~2019-03-08 | XMS | Encounter Summary ---
Demographics + + + | Address | [address] | | | [place] [address] | + + + | Home Phone [...] + + + | Author | [facility] | | | and [place] | + + + | Organization | [facility] | | | and [...] Team Providers + +------+ + | Care Rib Matcher And Fitter Name | Role | Phone | + [...] | | [address] | [place], [address] | (Primary Dx) | | | | [place], [place] | [place], [place] | | | | | [address] | [address] | | | | | [phone] | | | +--------+ + + + [...] [address] | | | | | | [place] [address] | | | | | | [phone] | | | | | | | | +--------+---------+ + + + documented as of this encounter Visit Diagnoses + + | Diagnosis | + + | ESRD (end stage renal disease) (HCC) - Primary End stage renal disease | + + documented in this encounter"
--- OUTSIDE RECORDS SUMMARY | ~2019-03-08 | XMS | Encounter Summary ---
Demographics + + + | Address | [address] | | | [place] [address] | + + + | Home Phone [...] + | Author | [facility] | | | and [place]ana | + + + | Organization | [facility] | | | and Josephana [...] Team Providers + +------+ + | Care Mathematics Technician Name | Role | Phone | [...] | Encounter | JOY | MD Emanuel [address] | | | | | [address] | [facility] | | | | [address] | [place], [place] | | | | | [place], [place] | [address] | | | | | [address] | [phone] | | | | | [phone] | | | +--------+ + + + [...] [address] | | | | | | [place] [address] | | | | | | [phone] | | | | | | | | +--------+---------+ + + + documented as of this encounter Visit Diagnoses Not on filedocumented in this encounter"
--- OUTSIDE RECORDS SUMMARY | ~2019-03-08 | XMS | Encounter Summary ---
Demographics + + + | Address | [address] | | | [place] [address] | + + + | Home Phone [...] | | | | | [place] [address] | | + + + + + | Thania Mallory | ECON | [address] | | | | | [place] [address] | | + + + + + | Deidra Weldon | ECON | [address] | | | | | [place] | | | | | [address] | | + + + + + Care Team Providers + +------+ + | Care Rfid Strategist Name | Role | Phone | [...] on | | | | Caro [address] [place], | [place], [place] | [place] | | | | [place] [address] | [address] | care plan) | | | | [phone] | | | +--------+ + + + [...] | | | | | | [place] | | | | | | [address] | | | | | | [phone] | | | | | | | | +--------+ + + + + documented as of this encounter Visit Diagnoses Not on filedocumented in this encounter"
--- OUTSIDE RECORDS SUMMARY | ~2019-03-08 | XMS | Encounter Summary ---
Demographics + + + | Address | [address] | | | [place] [address] | + + + | Home Phone [...] | | | | | [place] [address] | | + + + + + | Thania Mallory | ECON | [address] | | | | | [place] [address] | | + + + + + | Deidra Weldon | ECON | [address] | | | | | [place] | | | | | [address] | | + + + + + Care Team Providers + +------+ + | Care Force Dispatcher Name | Role | Phone | + [...] Transplant Services | RN [address] [facility] | list) | | | | [address] [place] | [facility] | | | | | [address] [facility], | [place], [place] | | | | | [place] [address] | [address] | | | | | [phone] | | | +--------+ + + + [...] Denise | | | | | | [place], [place] | | | | | | [address] | | | | | | [phone] | | | | | | | | +--------+ + + + + documented as of this encounter Visit Diagnoses Not on filedocumented in this encounter"
--- OUTSIDE RECORDS SUMMARY | ~2019-03-08 | XMS | Encounter Summary ---
Demographics + + + | Address | [address] | | | [place] [address] | + + + | Home Phone [...] | | | | | [place] [address] | | + + + + + | Thania Mallory | ECON | [address] | | | | | [place] [address] | | + + + + + | Deidra Weldon | ECON | [address] | | | | | [place] | | | | | [address] | | + + + + + Care Team Providers + +------+ + | Care Special Education Preschool Teacher Name | Role | Phone | [...] on | | | | Caro Chan [place], | [place], [place] | psychosocial goals | | | | [place] [address] | [address] | related to listing | | | | [phone] | | status) | +--------+ + + [...] [place] | | | | | | [address] | | | | | | [phone] | | | | | | | | +--------+ + + + + documented as of this encounter Visit Diagnoses Not on filedocumented in this encounter"
--- OUTSIDE RECORDS SUMMARY | ~2019-03-08 | XMS | Encounter Summary ---
Demographics + + + | Address | [address] | | | [place] [address] | + + + | Home Phone [...] | | | | | [place] [address] | | + + + + + | Thania Mallory | ECON | [address] | | | | | [place] [address] | | + + + + + | Deidra Weldon | ECON | [address] | | | | | [place] | | | | | [address] | | + + + + + Care Team Providers + +------+ + | Care Program Architect Name | Role | Phone | [...] 2005 | Registratio | Anil Elizondo | [phone] | | | | n | Rd Mailcode: [address] | | | | | | [place], [place] | | | | | | [address] | | | | | | [phone] | | | +--------+ + + + [...] Denise | | | | | | [place], [place] | | | | | | [address] | | | | | | [phone] | | | | | | | [...] | [facility] | | | PATHOLOGY | [facility] | | DEPARTMENT | | [...] Garcia | | | | | | [facility], | | | | | | [place],labeled [place] | | | | | | kidney [...] number | | | | | | [id number].[facility]/lab | | | | | | [...] wall | | | | | | [id number]: | | | | | | NegativeFibrinogen: [...] | + + + + + | [facility] | [address] | [place] [address] | | | PATHOLOGY | [place] | | | + + + + + | [facility] | [address] | [place] [address] | | | PATHOLOGY | [place] | | | + + + + + documented in this encounter Visit Diagnoses Not on filedocumented in this encounter"
--- OUTSIDE RECORDS SUMMARY | ~2019-03-08 | XMS | Encounter Summary ---
Demographics + + + | Address | [address] | | | [place] [address] | + + + | Home Phone [...] | | | | | [place] [address] | | + + + + + | Thania Mallory | ECON | [address] | | | | | [place] [address] | | + + + + + | Deidra Weldon | ECON | [address] | | | | | [place] | | | | | [address] | | + + + + + Care Team Providers + +------+ + | Care Master Welder Name | Role | Phone | + [...] | | | [address] [place] | [place] | | | | | [address], | [place], [place] | | | | | [place] [address] | [address] | | | | | [phone] | [phone] | | | | | | | [...] Denise | | | | | | [place], [place] | | | | | | [address] | | | | | | [phone] | | | | | | | | +--------+ + + + + documented as of this encounter Visit Diagnoses Not on filedocumented in this encounter"
--- OUTSIDE RECORDS SUMMARY | ~2019-03-08 | XMS | Encounter Summary ---
Demographics + + + | Address | [address] | | | [place] [address] | + + + | Home Phone [...] | | | | | [place] [address] | | + + + + + | Thania Mallory | ECON | [address] | | | | | [place] [address] | | + + + + + | Deidra Weldon | ECON | [address] | | | | | [place] | | | | | [address] | | + + + + + Care Team Providers + +------+ + | Care Cosmetologist Apprentice Name | Role | Phone | [...] | | | MD [address] | [facility] | | | | | | Keven | Mailcode: | | | | | | Hospital | [facility] | | | | | | [address] | [place] | | | | | | [address] | [place], [place] | | | | | | [place] | [address] | | | | | | [place] | Phone: | | | | | | [address] | [phone] | | | | | | Phone: | | | | | | | [phone] | | | | | | | Fax: | | | | | | | [phone] | | +--------+--------+ + + + + Encounter Details +--------+---------+ + + + | Date | Type | Department | Care Team | Description | +--------+---------+ + + + | 01/20/ | Office | Specialty Clinics | Sudhakar Joy | HSP | | 2014 | Visit | at [facility] [address] MD [address] | (David | | | | [place] Mailcode: | [address] | purpura) nephritis | | | | [facility] [address] | [place], [place] | (Primary Dx); | | | | [place], [place] | [address] | Allergic purpura- | | | | [address] | [phone] | MEDICARE 8513; | | | | [phone] | | Anemia of chronic | | [...] [address] Mail code [facility] [place], [place] [address] documented in this encounter Plan of Treatment +--------+ + + + + | Date | Type | Specialty | Care Team | Description | +--------+ + + + + | 05/04/ | Hospital | Adult Acute Care | El Starr MD | | | 2022 | Encounter | | [address] | | | | | | [place], [place] | | | | | | [address] | | | | | | [phone] | | | | | | | [...]
--- OUTSIDE RECORDS SUMMARY | ~2019-03-08 | XMS | Encounter Summary ---
Demographics + + + | Address | [address] | | | [place] [address] | + + + | Home Phone [...] | | | | | [place] [address] | | + + + + + | Thania Mallory | ECON | [address] | | | | | [place] [address] | | + + + + + | Deidra Weldon | ECON | [address] | | | | | [place] | | | | | [address] | | + + + + + Care Team Providers + +------+ + | Care Preschool Special Education Teacher Name | Role | Phone | [...] Elias Elizondo | | | | | ([facility]) | [address] | [place], | | | | | Allergic | [place], [place] | [place] | | | | | purpura | [address] | [address] | | | | | ([facility]) | Phone: | Phone: | | | | | | [phone] | [phone] | | | | | | Fax: | Fax: | | | | | | [phone] | [phone] | +--------+--------+ + + + + Encounter Details +--------+---------+ + + + | Date | Type | Department | Care Team | Description | +--------+---------+ + + + | 12/19/ | Office | Kidney Transplant | Clinic, Ltx 3181 | Patient on | | 2012 | Visit | at [facility] | [facility] | peritoneal dialysis | | | | [address] [place], [place] | (HCC) (Primary Dx); | | | | [address] | [address] | Unspecified | | | | Mailcode: L590 | | essential | | | | [facility] | | hypertension; HSP | | | | [place], [place] | | ([place] | | | | [address]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; | | | | [phone] | | Obesity (BMI | | | [...] might be different from th e original. RENAL TRANSPLANT CONSULTATION This 17 y.o. female is referred by Dr. Sudhakar Joy for a renal transplant recipient evaluation. The patient is seen in the presence of the patient's parents. This patient's problems include the following: Patient on peritoneal dialysis[V45.11] May 2012 LLQ exit site 2 exit site infections Unspecified essential hypertension[401.9] Anemia of chronic kidney failure[285.21] Obesity (BMI 30-39.9)[278.00] Comment: 65 03/07" 224 lb BMI 36 Fever blister[054.9] Lips [...] on file Social History Narrative Lives in [place], [place] with father and step-mother; 2 dogs; [...] Transplant Selection Confer ence. El Starr MD brew house supervisor, Division of Abdominal Organ Transplantation Professor of Urology CC: Sudhakar Joy MD [address] [place] [address] documented in this encoun ter Plan of Treatment +--------+ + + + + | Date | Type | Specialty | Care Team | Description | +--------+ + + + + | 05/04/ | Hospital | Adult Acute Care | El Starr MD | | | 2022 | Encounter | | [address] | | | | | | [place], [place] | | | | | | [address] | | | | | | [phone] | | | | | | | [...] | Procedure Note | + + | Other, Faculty - 02/04/2014 11:20 AM PST | + [...]
--- OUTSIDE RECORDS SUMMARY | ~2019-03-08 | XMS | Encounter Summary ---
Demographics + + + | Address | [address] | | | [place] [address] | + + + | Home Phone [...] | [facility] | | | and [place] | + + + | Organization | [facility] | [...] Team Providers + +------+ + | Care Tax Manager Cpa Name | Role | Phone | + +------+ + PCP | Unavailable | + +------+ + Encounter Details +--------+ + + + + | Date | Type | Department | Care Team | Description | +--------+ + + + + | 06/11/ | Hospital | [facility] | | | | 2008 - | Encounter | MED CTR OP REHAB | | | | | | [address] | | | | 07/03/ | | [place] [address] | | | | 2008 | | [phone] | | | +--------+ + + + [...] [address] | | | | | | [place] [address] | | | | | | [phone] | | | | | | | | +--------+---------+ + + + documented as of this encounter Visit Diagnoses Not on filedocumented in this encounter"
--- OUTSIDE RECORDS SUMMARY | ~2019-03-08 | XMS | Encounter Summary ---
Demographics + + + | Address | [address] | | | [place] [address] | + + + | Home Phone [...] Author | [facility] | | | and [place] | + + + | Organization | [facility] [...] Providers + +------+ + | Care Restaurant Greeter Name | Role | Phone | + +------+ + PCP | Unavailable | + +------+ + Encounter Details +--------+ + + + + | Date | Type | Department | Care Team | Description | +--------+ + + + + | 05/17/ | Hospital | [facility] GENERIC OP | Sudhakar Joy | | | 2010 | Encounter | JOY | MD Emanuel [address] | | | | | DEPART[address] | [facility] | | | | | [address] | [place], [place] | | | | | [place] | [address] | | | | | [address] | [phone] | | | | | [phone] | | | +--------+ + + + [...] [address] | | | | | | [place] [address] | | | | | | [phone] | | | | | | | | +--------+---------+ + + + documented as of this encounter Visit Diagnoses Not on filedocumented in this encounter"
--- OUTSIDE RECORDS SUMMARY | ~2019-03-08 | XMS | Encounter Summary ---
Demographics + + + | Address | [address] | | | [place] [address] | + + + | Home Phone [...] | Author | [facility] | | | and [place] | + + + | Organization | [facility] [...] Team Providers + +------+ + | Care Kinesiology Professor Name | Role | Phone | [...] | NEPHROLOGY [address] | | | | | [address] | [address] [place] | | | | | [place], [place] | [place] [address] | | | | | [address] | [phone] | | | | | [phone] | | | +--------+ + + + [...] [address] | | | | | | [place] [address] | | | | | | [phone] | | | | | | | | +--------+---------+ + + + documented as of this encounter Visit Diagnoses Not on filedocumented in this encounter"
--- OUTSIDE RECORDS SUMMARY | ~2019-03-08 | XMS | Encounter Summary ---
Demographics + + + | Address | [address] | | | [place] [address] | + + + | Home Phone [...] Author | [facility] | | | and [place] | + + + | Organization | [facility] | [...] Team Providers + +------+ + | Care Intellectual Property Lawyer Name | Role | Phone | + +------+ + PCP | Unavailable | + +------+ + Encounter Details +--------+ + + + + | Date | Type | Department | Care Team | Description | +--------+ + + + + | 09/12/ | Orders Only | [facility] [place] | Daniela Ibarra, | Asthma, mild | | 2015 | | NEPHROLOGY [address] | MD [address] | intermittent, | | | | [address] | [address] [place] | uncomplicated | | | | [place], [place] | [place] [address] | (Primary Dx) | | | | [address] | [phone] | | | | | [phone] | | | +--------+ + + + [...] [address] | | | | | | [place] [address] | | | | | | [phone] | | | | | | | | +--------+---------+ + + + documented as of this encounter Visit Diagnoses + + | Diagnosis | + + | Asthma, mild intermittent, uncomplicated - Primary | + + documented in this encounter"
--- OUTSIDE RECORDS SUMMARY | ~2019-03-08 | XMS | Encounter Summary ---
Demographics + + + | Address | [address] | | | [place] [address] | + + + | Home Phone [...] Author | [facility] | | | and [place] | + + + | Organization | [facility] | | [...] Providers + +------+ + | Care Director News Name | Role | Phone | [...] | stage renal | [address] | [address] [place] [address] | | | | | disease) | Shun [place] | [place] [address] | | | | | ([facility]) | [address] | [address] [place] | | | | | Anemia in | [place], [place] | [place]AIMA MD | | | | | ESRD | [address] | [address] Phone: | | | | | (end-stage | Phone: | [phone] | | | | | renal | [phone] | Fax: | | | | | disease) | Fax: | [phone] | | | | | ([facility]) | [phone] | | | | | | Procedures [...] + + + + | 10/16/ | Off-Site | [facility] [place] | Jorje Camp | ESRD (end stage | | 2018 | Visit | NEPHROLOGY [address] | M, DO [address] | renal disease) ([facility]) | | | | [address] | [place], [address] | (Primary Dx) | | | | [place], [place] | [place], [place] | | | | | [address] | [address] | | | | | [phone] | | | +--------+ + + + [...] + + + | Blood Pressure | 155/100 | 10/16/2017 5:10 PM | | | | | PDT | | + + + + + | Pulse | - | - | | + + + + + | Temperature | 36.4 C (97.5 F) | 10/16/2017 5:10 PM | | | | | PDT [...] encounter Progress Notes Jorje Camp DO - 10/16/2017 10:30 AM PDT Subjective: DIALYSIS NOTE Patient ID: Dara Weldon is a 22 y.o. female. 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 She also has anemia secondary to CKD, SHPTH, centrip etal obesity, ongoing nicotine addiction, despite advice to quit, and chronic THC dependence . She unfortunately is consisently truant from scheduled dialysis txs, w/o valid excuses. She historically has only 1-2 txs per week from records in [facility], per [facility] Nurse Elisabeth Portillo RN. Her BP, PO4, and PTH are consisently high. 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 Outpatient Prescriptions Marked as Taking for the 10/16/17 encounter (Off-Site Visit) with Camille Camp DO [...] the sk in Three times a week. hydroxyzine (ATARAX) 50 MG tablet Take 1 tablet by mouth nightly as needed for Itching. 60 tablet 1 iron sucrose (VENOFER) 20 mg/mL injection Inject 2.5 mL's into the vein Once a week. norethindrone (MICRONOR) 0.35 MG tablet Take 1 tablet by mouth Daily. 28 tablet 11 27-0.8 mg multivitamin tablet Take 1 tablet by mouth Daily. 30 tablet 11 ranitidine (ZANTAC) 300 MG capsule Take 1 capsule by mouth every evening. 30 capsule 11 sevelamer carbonate (RENVELA) 800 mg tablet Take 4 tablets by mouth with meals and 3 ta blets with snacks 450 tablet 11 Allergies Allergen Reactions Adhesive & Tape Rash Certain tapes Morphine Itching and Rash Lisinopril cough Objective: BP (!) 155/100 | Temp 36.4 C (97.5 F) EDW 74 kg Physical Exam Heart: Regular rate and rhythm with no S3, S4, murmur or rub. Lungs: CTA bilaterally. No rales or wheezes. Abdomen: Soft, obese, nontender, normoactive bowel sounds.. Extremities: No clubbing, cyanosis, or edema. LAB: BUN 54, Cr 14.1, K+ 4.7, HCO3 24, Ca++ 10.3, PO4 8.6, PTH 1121, Alb 3.9, Hb 11, TSat. = 19 %, Ferritin 581, spKT/V = 1.31. Assessment: 1. ESRD-- she is chronically underdialyzed due to lack of compliance with her reasonable 4 Hr Rx, 2K+, Nipro 17H dialyzer, on three days per week. She was again warned regarding risks of CV or cxs from under dialysis. 2. Hypertension-- aggravated by suboptimal weekly UF and large , interdialytic fluid gains . Apparently, she never filled the losartan, therefore, will resume it at 50 mg, Q day. I called her Pharmacy, and her co-payment is $1.25/Rx, whi ch is reasonable. 3. SHPTH-- admits to drinking cows milk freely, 2-3 x per day. Has been counseled in [facility] regarding risks of calciphylaxis. 4. Nutrition-- her serum albumin is stable. 5. Anemia secondary to CKD-- she was warned of missed doses of EPO with missed txs. Hb is reasonable on current dose, if she attends her scheduled txs. 6. Centripetal obesity-- she does state that she is pursuing walking , daily. 7. 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 8. Transplantation--not at all a candidate and at high risk for graft loss due to her stevie turity and lack of insight into her CKD. 9. Self-destructive behavior-- she declined all efforts at counseling Rx. 10. Chronic Nicotine and THC dependence-- likely contributing to her lack of success? Plan: 1. Will begin losartan 50 mg, Q day for her BP. 2. I did discuss at length, that w/o effective, scheduled HD txs 3 x per week, that BP meds alone would not be sufficient. She was A&O x3 during this discussion. 3. Monthly lab was reviewed with the pt. 4. 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 5. Will recheck her in 2 weeks. : Maple Fina Alonso MD, PhD documented in thi [...] [place] | | | | | | [place] [address] | | | | | | [phone] | | | | | | | | +--------+---------+ + + + documented as of this encounter Visit Diagnoses + + | Diagnosis | + + | ESRD (end stage renal disease) (HCC) - Primary End stage renal disease | + + documented in this encounter"
--- OUTSIDE RECORDS SUMMARY | ~2019-03-08 | XMS | Encounter Summary ---
Demographics + + + | Address | [address] | | | [place] [address] | + + + | Home Phone [...] | Author | [facility] | | | and [place] | + + + | Organization | [facility] | | | and [place] [...] Team Providers + +------+ + | Care Plant Wrapper Name | Role | Phone | + +------+ + PCP | Unavailable | + +------+ + Encounter Details +--------+ + + + + | Date | Type | Department | Care Team | Description | +--------+ + + + + | 05/29/ | Hospital | [facility] | Conversion | End stage renal | | 2014 | Encounter | CENTER IR INTRA OP | Transaction, | disease (HCC) | | | | [address] | Provider Unknown | | | | | [place], [place] | | | | | | [address] | (Fax) | | | | | [phone] | | | +--------+ + + + [...] 05/29/141653 Date of Service: 05/29/141648 Status: Signed Ceo Na: Mesha Clark RN (Registered Nurse) Discharge criteria [...] E | | | | | | [place] [address] | | | | | | [phone] | | | | | | | [...] Successful | | | placement of a 14.5-Zambian dual-lumen 19-cm tunneled hemodialysis | | | catheter with its tip in the upper portion of the right atrium without | | | incidence. 34137, 18024, 55607, 10768-96 Electronically | | | signed by Darryn [...] jugular vein. 3. Placement of 19 cm, 14.5-Zambian | | | dual-lumen tunneled palindrome hemodialysis [...] records. 3. Upper chest radiograph shows dual-lumen, 14.5-Zambian, | | | 19-cm, tunneled dialysis catheter [...] | micropuncture needle and exchanged for a 4-Zambian micropuncture sheath | | | over a 0.018 wire. Skin in the infraclavicular region was | | | infiltrated with 1% lidocaine and a 5-mm skin incision was made. A | | | 14.5-Zambian, dual-lumen, 19-cm tunneled hemodialysis catheter was | | | placed a subcutaneous tunnel using a metallic tunneler. The 4-Zambian | | | sheath was exchanged for a 0.035, 3-mm J-wire with its tip in the | | | right atrium under fluoroscopy guidance. The skin and subcutaneous | | | tract was dilated using at 12 and 14-Zambian facial dilators. A | | | 15-Zambian peel-away sheath was placed over the wire [...] vein.3. Placement of 19 | | cm, 14.5-Zambian dual-lumen tunneled palindrome hemodialysis catheter in the [...] Upper chest radiograph shows dual-lumen, | | 14.5-Zambian, 19-cm, tunneled dialysis catheter with its tip [...] needle and exchanged for | | a 4-Zambian micropuncture sheath over a 0.018 wire. Skin in the infraclavicular region | | was infiltrated with 1% lidocaine and a 5-mm skin incision was made. A 14.5-Zambian, | | dual-lumen, 19-cm tunneled hemodialysis catheter was placed a subcutaneous tunnel using | | a metallic tunneler. The 4-Zambian sheath was exchanged for a 0.035, 3-mm J-wire with | | its tip in the right atrium under fluoroscopy guidance. The skin and subcutaneous tract | | was dilated using at 12 and 14-Zambian facial dilators. A 15-Zambian peel-away sheath | | was placed over [...] veins.2. Successful placement | | of a 14.5-Zambian dual-lumen 19-cm tunneled hemodialysis catheter with its tip in the | | upper portion of the right atrium without incidence. 97970, 26950, 84581, 62806-45 | | | |2. Successful placement of a 14.5-Zambian dual-lumen 19-cm tunneled hemodialysis catheter w ith its tip in the upper portion of the right atrium without incidence. | | | |[address], [address], [address], [address]-18 | | | | | + + documented in this encounter Visit Diagnoses + + | Diagnosis | + + | End stage renal disease (HCC) End stage renal disease | + + documented in this encounter"
--- OUTSIDE RECORDS SUMMARY | ~2019-03-08 | XMS | Encounter Summary ---
Demographics + + + | Address | [address] | | | [place] [address] | + + + | Home Phone [...] + | Author | [facility] | | | and [place] | + + + | Organization | [facility] | | | and [place] [...] Providers + +------+ + | Care Fitter Welder Name | Role | Phone | + +------+ + PCP | Unavailable | + +------+ + Encounter Details +--------+ + + + + | Date | Type | Department | Care Team | Description | +--------+ + + + + | 08/30/ | Off-Site | [facility] | Jorje Camp | ESRD (end stage | | 2016 | Visit | NEPHROLOGY [address] | M, DO [address] | renal disease) ([facility]) | | | | [address] | [place], [address] | (Primary Dx) | | | | [place], [place] | [place], [place] | | | | | [address] | [address] | | | | | [phone] | | | +--------+ + + + [...] + + + | Blood Pressure | 128/62 | 08/31/2015 5:50 PM | | | | | PDT | | + + + + + | Pulse | - | - | | + + + + + | Temperature | 36.5 C (97.7 F) | 08/31/2015 5:50 PM | | | | | PDT [...] encounter Progress Notes Jorje Camp DO - 09/27/2015 5:52 PM PDTDIALYSIS NOTE He is seen on thrice weekly HD, tolerating it well. She still struggles with large inter-d ialytic weight gains. Also, a second problem has been intermittent absenteeism from her t hird prescribed treatments. Exam BP 120/62 T 36.4 EDW 102 kg PE: unremarkable. Plan 1. Monthly lab was reviewed with the pt. 2. I discussed with Dara that it's very important that she obtain all of her 4 hour riya tments, thrice weekly, to optimize her hyperphosphatemia, control her blood pressure and ECF volume. 3. She will be rechecked in 2 weeks. documented in thi s encounter Plan of Treatment +--------+---------+ + + + | Date | Type | Specialty | Care Team | Description | +--------+---------+ + + + | 04/18/ | Office | Pulmonology | Denny Alexander | | | 2020 | Visit | | Deny Briggs MD [address] | | | | | | [address] | | | | | | [place] [address] | | | | | | [phone] | | | | | | | | +--------+---------+ + + + documented as of this encounter Visit Diagnoses + + | Diagnosis | + + | ESRD (end stage renal disease) (HCC) - Primary End stage renal disease | + + documented in this encounter"
--- OUTSIDE RECORDS SUMMARY | ~2019-03-08 | XMS | Encounter Summary ---
Demographics + + + | Address | [address] | | | [place] [address] | + + + | Home Phone [...] Author | [facility] | | | and Josephana | + + + | Organization | [facility] | | | and Josephana [...] Providers + +------+ + | Care Recruiting Intern Name | Role | Phone | + +------+ + PCP | Unavailable | + +------+ + Encounter Details +--------+ + + + + | Date | Type | Department | Care Team | Description | +--------+ + + + + | 05/29/ | Hospital | [facility] | Conversion | End stage renal | | 2014 | Encounter | CENTER CV INTRA OP | Transaction, | disease (HCC) | | | | [address] | Provider Unknown | | | | | [place], [place] | [phone] | | | | | [address] | | | | | | [phone] | Natashakirit Darryn, | | | | | | MD [address] | | | | | | [place], [place] | | | | | | [address] | | | | | | | [...] [place] | | | | | | [place] [address] | | | | | | [phone] | | | | | | | | +--------+---------+ + + + documented as of this encounter Procedures + +--------+ + + + | Procedure Name | Priori | Date/Time | Associated Diagnosis | Comments | | | ty | | | | + +--------+ + + + | MRSA NAAT | Timed | 05/29/2014 | | Results for this | | | | 2:20 PM | | procedure are in the | | | | PDT | | results section. | + +--------+ + + + documented in this encounter Results MRSA NAAT (05/29/2014 2:20 PM PDT) + + | Specimen | + + | | + + + + + | Narrative | Performed At | + + + | [facility](NOSE) | EXTERNAL LAB | | Testing performed at [facility];[address] [place] [address];[place] [address] MRSA PCR | | | NEGATIVE Testing performed at | | | [address];[place] [address] | | + + + + +---------+ [...]
--- OUTSIDE RECORDS SUMMARY | ~2019-03-08 | XMS | Encounter Summary ---
Demographics + + + | Address | [address] | | | [place] [address] | + + + | Home Phone [...] | Author | [facility] | | | and Josephana | + + + | Organization | [facility] | | [...] Team Providers + +------+ + | Care Image Processing Engineer Name | Role | Phone | + +------+ + PCP | Unavailable | + +------+ + Encounter Details +--------+ + + + + | Date | Type | Department | Care Team | Description | +--------+ + + + + | 05/14/ | Hospital | [facility] | Michelle Benitez, | | | 2008 | Encounter | HOSPITAL EMERGENCY | [address] | | | | | CENTER [address] | [place], [place] | | | | | [address] [place], [place] | [address] | | | | | [address] | [phone] | | | | | [phone] | | | +--------+ + + + [...] [place] | | | | | | [place] [address] | | | | | | [phone] | | | | | | | | +--------+---------+ + + + documented as of this encounter Visit Diagnoses Not on filedocumented in this encounter"
--- OUTSIDE RECORDS SUMMARY | ~2019-03-08 | XMS | Encounter Summary ---
Demographics + + + | Address | [address] | | | [place] [address] | + + + | Home Phone [...] + | Author | [facility] | | | and Josephana | + + + | Organization | [facility] | | | [...] Providers + +------+ + | Care Dental Technologist Name | Role | Phone | + +------+ + PCP | Unavailable | + +------+ + Encounter Details +--------+ + + + + | Date | Type | Department | Care Team | Description | +--------+ + + + + | 02/06/ | Documentati | [facility] | Jorje Camp | | | 2017 | on | NEPHROLOGY [address] | M, DO [address] | | | | | [address] | [place] | | | | | [place], [place] | [place], [place] | | | | | [address] | [address] | | | | | [phone] | | | +--------+ + + + [...] + + + | Blood Pressure | 141/108 | 02/06/2017 1:58 PM | | | | | PST | | + + + + + | Pulse | - | - | | + + + + + | Temperature | 36.7 C (98.1 F) | 02/06/2017 1:58 PM | | | | | PST [...] this encounter Progress Notes Jorje Camp, - 02/06/2017 11:59 PM PST Subjective: DIALYSIS NOTE Patient ID: Dara Weldon is a 22 y.o. female. 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 She also has anemia secondary to CKD, SHPTH, centripetal obesity. Unfortunately she continues her pattern of intermittent true is improved from treatments. She currently has only 2 treatments/me, from correspondence with the charge nurses. She is a and O 3 and I have discussed with her that her dialysis could lead to premature ASCVD, m orbidity, and shortness arrival. I discussed counseling or meeting with psychiatrist but sh e repeatedly declines. The entire dialysis team including flume worker have had mult iple conversations with her. Outpatient Prescriptions Marked as Taking for the 02/06/17 encounter (Documentation) with Kimberly Camp DO Medication Sig Dispense Refill albuterol 90 mcg/puff inhaler Inhale 2 puffs into the lungs every 6 hours as needed for Wheezing. 1 Inhaler 11 cinacalcet (SENSIPAR) 90 MG tablet Take 1 tablet by mouth Daily (with dinner). 30 table t 11 clopidogrel (PLAVIX) 75 mg tablet Take 1 tablet by mouth Daily. 30 tablet 11 epoetin jenna (EPOGEN,PROCRIT) 3,000 units/mL injection Inject 20,000 Units under the sk in Three times [...] Morphine Itching and Rash Objective: BP (!) 141/108 | Temp 36.7 C (98.1 F) EDW 89 kg Physical Exam Heart: Regular rate and rhythm with no S3, S4, murmur or rub. Lungs: CTA bilaterally. No rales or wheezes. Abdomen: Soft, obese, nontender, normoactive bowel sounds.. Extremities: No clubbing, cyanosis, or edema. LAB: BUN 62, Cr 15.3, K+ 4.9, HCO3 23, Ca++ 9.8, HP04 8.9, albumin 3.8, PTH 1730, Hb 9.3, TSat = 16%, ferritin 556, eKT/V = 0.90. Assessment: 1. ESRD-- her clearance is suboptimal and she is chronically under dialyzed. Numerous di alysis staff have explained this to her but she does not seem to accept this willingly. 2. Hypertension-- suboptimal control due to under dialysis from lack of compliance with he r formal treatment Rx. 3. SHPTH-- see above. I have discussed with Dara about the potential use of a PTH-ectom y to improve control and avoid other meds. Again, she refuses. 4. Nutrition-- she states that her appetite is fairly good surprisingly. 6. Anemia-- she does not receive her appropriate dose of dialysis and I think the marked ly elevated PTH is blunting her response ESTEFANY therapy? 7. 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 8. 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 9. Transplantation--not all candidate and at high risk for graft loss due to her immaturit y and lack of insight into her CKD. 10. Self-destructive behavior--she is repeatedly not amenable to formal counseling. Plan: 1. Will attempt to continue to make efforts to certified credit counselor her about lifestyle modification an d compliance modification. 2. Again, will continue to offer her counseling or evaluation by psychiatrist. I truly be lieve this would greatly benefit her. 3. I think her current Rx is accurate if she is willing to come to her treatments. 4. Will recheck her in 2 weeks. [...] [place] | | | | | | [place] [address] | | | | | | [phone] | | | | | | | | +--------+---------+ + + + documented as of this encounter Visit Diagnoses Not on filedocumented in this encounter"
--- OUTSIDE RECORDS SUMMARY | ~2019-03-08 | XMS | Encounter Summary ---
Demographics + + + | Address | [address] | | | [place] [address] | + + + | Home Phone [...] | | | | | [place] [address] | | + + + + + | Thania Mallory | ECON | [address] | | | | | [place] [address] | | + + + + + | Deidra Weldon | ECON | [address] | | | | | [place] | | | | | [address] | | + + + + + Care Team Providers + +------+ + | Care Thoracic Surgeon Name | Role | Phone | + [...] to | | | | [address] [place], | [place], [place] | contact [place] re move | | | | [place] [address] | [address] | and new PAF as | | | | [phone] | | listed) | +--------+ + + [...] Denise | | | | | | [place], [place] | | | | | | [address] | | | | | | [phone] | | | | | | | | +--------+ + + + + documented as of this encounter Visit Diagnoses Not on filedocumented in this encounter"
--- OUTSIDE RECORDS SUMMARY | ~2019-03-08 | XMS | Encounter Summary ---
Demographics + + + | Address | [address] | | | [place] [address] | + + + | Home Phone [...] | | | | | [place] [address] | | + + + + + | Thania Mallory | ECON | [address] | | | | | [place] [address] | | + + + + + | Deidra Weldon | ECON | [address] | | | | | [place] | | | | | [address] | | + + + + + Care Team Providers + +------+ + | Care Ms Sql Server Developer Name | Role | Phone | [...] | | [address] | [facility] | | | | | Caro [facility], | [place], [place] | | | | | [place] [address] | [address] | | | | | [phone] | | | +--------+ + + + [...] Denise | | | | | | [place] | | | | | | [address] | | | | | | [phone] | | | | | | | | +--------+ + + + + documented as of this encounter Visit Diagnoses Not on filedocumented in this encounter"
--- OUTSIDE RECORDS SUMMARY | ~2019-03-08 | XMS | Encounter Summary ---
Demographics + + + | Address | [address] | | | [place] [address] | + + + | Home Phone [...] | Author | [facility] | | | and Josephana | + + + | Organization | [facility] | [...] Providers + +------+ + | Care Piano And Organ Refinisher Name | Role | Phone | + +------+ + PCP | Unavailable | + +------+ + Encounter Details +--------+ + + + + | Date | Type | Department | Care Team | Description | +--------+ + + + + | 10/28/ | Hospital | [facility] | Conversion | ESRD (end stage | | 2015 | Encounter | CENTER CV INTRA OP | Transaction, | renal disease) (HCC) | | | | [address] | Provider Unknown | | | | | [place], [place] | [phone] | | | | | [address] | | | | | | [phone] | Colten Hutchins MD | | | | | | [address] | | | | | | [place], [place] | | | | | | [address] | | | | | | | [...] [place] | | | | | | [place] [address] | | | | | | [phone] | | | | | | | [...] COMPARISON STUDIES: 08/21/2014 | | | PRIMARY LABOR DELIVERY RN: Colten Hutchins MD, PhD, VI OPERATIONS: 1. [...] to the area of stenosis. A 4 Rw[place]an | | | sheath was placed. Patient [...] | perianastomotic stenoses. COMPARISON STUDIES: 08/21/2014 PRIMARY LABOR DELIVERY RN: Colten | | MD Liset, PhD, RPVI [...] to the area of stenosis. A 4 Rwandan sheath was placed. Patient was | | [...] COMPARISON STUDIES: 08/21/2014 | | | PRIMARY LABOR DELIVERY RN: Colten Hutchins MD, PhD, [facility] OPERATIONS: 1. | | | Left upper [...] to the area of stenosis. A 4 [place] | | | sheath was placed. Patient [...] | perianastomotic stenoses. COMPARISON STUDIES: 08/21/2014 PRIMARY LABOR DELIVERY RN: Colten | | MD Liset, PhD, RPVI [...] to the area of stenosis. A 4 Rwandan sheath was placed. Patient was | | [...] EXTERNAL | | | | performed at [facility];[address] | K/uL | LAB | | | | [address];[place], [place] | | | | | | [address] | | | | + + + + + + | RED CELL | 3.88Comment: Testing | 3.70 - 5.10 | EXTERNAL | | | COUNT | performed at [facility];[address] | M/uL | LAB | | | | [address];[place] | | | | | | [address] | | | | + + + + + + | Hgb | 14.1Comment: Testing | 11.3 - 15.5 | EXTERNAL | | | | performed at [facility];888 | g/dL | LAB | | | | [address];[place] | | | | | | [address] | | | | + + + + + + | Hematocrit, | 41.4Comment: Testing | 34.0 - 46.0 % | EXTERNAL | | | POC | performed at [facility];[address] | | LAB | | | | [address];[place] | | | | | | [address] | | | | + + + + + + | MCV | 106.7 (H)Comment: | 80.0 - 100.0 fl | EXTERNAL | | | | Testing performed at | | LAB | | | | [facility];[address] | [address];[place] [address] | | | | + + + + + + | MCH | 36.4 (H)Comment: Testing | 27.0 - 34.0 pg | EXTERNAL | | | | performed at [facility];[address] | | LAB | | | | [address];[place] | | | | | | [address] | | | | + + + + + + | MCHC | 34.1Comment: Testing | 32.0 - 35.5 | EXTERNAL | | | | performed at [facility];888 | g/dL | LAB | | | | [address];[place] | | | | | | [address] | | | | + + + + + + | RDW-CV | 54.7 (H)Comment: Testing | 37 - 53 fl | EXTERNAL | | | | performed at [facility];[address] | | LAB | | | | [address];[place] | | | | | | [address] | | | | + + + + + + | Platelet | 168Comment: Testing | 150 - 400 K/uL | EXTERNAL | | | Count | performed at [facility];[address] | | LAB | | | Plasma | [address];[place] | | | | | | [address] | | | | + + + + + + | MPV | 9.1Comment: Testing | fl | EXTERNAL | | | | performed at [facility];[address] | | LAB | | | | [address];[place] | | | | | | [address] | | | | + + + [...] | | | | | performed at [facility] | | | | | | [address];[place] | | | | | | [address] | | | | + + + [...] EXTERNAL | | | | performed at [facility];888 | mmol/L | LAB | | | | [address];[place] | | | | | | [address] | | | | + + + + + + | K | 3.9Comment: Testing | 3.5 - 4.9 | EXTERNAL | | | | performed at [facility];888 | mmol/L | LAB | | | | [address];[place] | | | | | | [address] | | | | + + + + + + | Cl | 97 (L)Comment: Testing | 99 - 109 mmol/L | EXTERNAL | | | | performed at [facility];[address] | | LAB | | | | [address];[place] | | | | | | [address] | | | | + + + + + + | CO2 | 34 (H)Comment: Testing | 23 - 32 mmol/L | EXTERNAL | | | | performed at [facility];[address] | | LAB | | | | [address];[place] | | | | | | [address] | | | | + + + + + + | Anion Gap | 12Comment: Testing | 5 - 20 mmol/L | EXTERNAL | | | | performed at [facility];[address] | | LAB | | | | [address];[place] | | | | | | [address] | | | | + + + + + + | Glucose, | 87Comment: Testing | 65 - 99 mg/dL | EXTERNAL | | | Fasting | performed at [facility];[address] | | LAB | | | | [address];[place] | | | | | | [address] | | | | + + + + + + | BUN | 23Comment: Testing | 8 - 25 mg/dL | EXTERNAL | | | | performed at [facility];[address] | | LAB | | | | [address];[place] | | | | | | [address] | | | | + + + + + + | Creatinine | 6.4 (H)Comment: Testing | 0.50 - 1.00 | EXTERNAL | | | | performed at [facility];888 | mg/dL | LAB | | | | [address];[place] | | | | | | [address] | | | | + + + + + + | BUN/Creatin | 4Comment: Testing | | EXTERNAL | | | ine Ratio | performed at [facility];[address] | | LAB | | | | [address];[place] | | | | | | [address] | | | | + + + + + + | Calcium | 9.5Comment: Testing | 8.5 - 10.5 | EXTERNAL | | | | performed at [facility];888 | mg/dL | LAB | | | | [address];[place] | | | | | | [address] | | | | + + + + + + | Estimated | CALCULATION NOT | mL/min/1.73m2 | EXTERNAL | | | GFR | PERFORMED. RESULT NOT | | LAB | | | | VALID IF AGE LT 20 | | | | | | YEARS.Comment: Testing | | | | | | performed at [facility];[address] | | | | | | [address];[place], [place] | | | | | | [address] | | | | + + + [...]
--- OUTSIDE RECORDS SUMMARY | ~2019-03-08 | XMS | Encounter Summary ---
Demographics + + + | Address | [address] | | | [place] [address] | + + + | Home Phone [...] | | | | | [place] [address] | | + + + + + | Thania Mallory | ECON | [address] | | | | | [place] [address] | | + + + + + | Deidra Weldon | ECON | [address] | | | | | [place] | | | | | [address] | | + + + + + Care Team Providers + +------+ + | Care Bottom Brusher Name | Role | Phone | + [...] | | [address] | [facility] | | | | | Caro [facility], | [place], [place] | | | | | [place] [address] | [address] | | | | | [phone] | | | +--------+ + + + [...] Denise | | | | | | [place] | | | | | | [address] | | | | | | [phone] | | | | | | | | +--------+ + + + + documented as of this encounter Visit Diagnoses Not on filedocumented in this encounter"
--- OUTSIDE RECORDS SUMMARY | ~2019-03-08 | XMS | Encounter Summary ---
Demographics + + + | Address | [address] | | | [place] [address] | + + + | Home Phone [...] + | Author | [facility] | | | and [place]ana | + + + | Organization | [facility] | [...] Providers + +------+ + | Care Marine Structural Welder Name | Role | Phone | + +------+ + PCP | Unavailable | + +------+ + Encounter Details +--------+ + + + + | Date | Type | Department | Care Team | Description | +--------+ + + + + | 02/20/ | Abstract | [facility] | Blake Chavarria | | | 2013 | | SURGERY [address] Fung MD, FACS [address] | | | | | [address] | [address] [facility] | | | | | [address] | [place] [address] | | | | | [phone] | [phone] | | | | | | | [...] [place] | | | | | | [place] [address] | | | | | | [phone] | | | | | | | [...]
--- OUTSIDE RECORDS SUMMARY | ~2019-03-08 | XMS | Encounter Summary ---
Demographics + + + | Address | [address] | | | [place] [address] | + + + | Home Phone [...] + | Author | [facility] | | | and Josephana | + + + | Organization | [facility] | | [...] Team Providers + +------+ + | Care District Superintendent Name | Role | Phone | [...] NEPHROLOGY [address] | MD [address] | (Asymptomatic) | | | | [address] | [address] [place] | | | | | [place], [place] | [place] [address] | | | | | [address] | [phone] | | | | | [phone] | | | +--------+ + + + [...] note e-faxed to Jamil Levi in Dialysis [facility], Lianna Joy [facility] pediatric nephrology at [facility] on 02/07/14. Daniela Ibarra MD - 01/24/2014 2:48 PM PSTFormatting of this note might be different fr om the original. Comprehensive Dialysis Monthly Note Date of visit: 01/24/2014 Dialysis Clinic: [facility] Mode of dialysis: Hemodialysis Dialysis prescription: MWF, [...] 2012. Access: R chest catheter. Re-referred to [facility] transplant in Oct 2013 by pediatric anesthesiologist. Peritonitis, dialysis-associated (HCC) 07/29/2013 Note Last Updated: 07/29/2013 Due to MSSA. Had tunneled infection as well. PD catheter removed in July 2013. On Keflex till 08/01/13. History of Henoch-Schonlein purpura Note Last Updated: 07/29/2013 Diagnosed at age 10[address] Joy, pediatric anesthesiologist. Anemia in ESRD (end-stage renal disease) (HCC) [...] ed for acceptable candidacy. Will f/u with [facility] Transplant Team. cc: Lucille [facility] Dr. Lianna Joy, [facility] Pediatric Nephrology [facility] Renal transplant documented in this encounter [...] [place] | | | | | | [place] [address] | | | | | | [phone] | | | | | | | [...]
--- OUTSIDE RECORDS SUMMARY | ~2019-03-08 | XMS | Encounter Summary ---
Demographics + + + | Address | [address] | | | [place] [address] | + + + | Home Phone [...] | Author | [facility] | | | and [place]ana | + + + | Organization | [facility] | | [...] Team Providers + +------+ + | Care Mortuary Technician Name | Role | Phone | [...] | NEPHROLOGY [address] | [address] | | | | | [address] | [address] [place] | | | | | [place], [place] | [place] [address] | | | | | [address] | [phone] | | | | | [phone] | | | +--------+ + + + [...] | | | | | [place] [address] | | | | | | [phone] | | | | | | | | +--------+---------+ + + + documented as of this encounter Visit Diagnoses Not on filedocumented in this encounter"
--- OUTSIDE RECORDS SUMMARY | ~2019-03-08 | XMS | Encounter Summary ---
Demographics + + + | Address | [address] | | | [place] [address] | + + + | Home Phone [...] | Author | [facility] | | | and Josephana | + + + | Organization | [facility] | | | and Josephana [...] Team Providers + +------+ + | Care Tungsten Refiner Name | Role | Phone | + [...] + | 02/28/ | Telephone | [facility] | Blake Chavarria | Appointment (Post | | 2013 | | SURGERY [address] | MD Antonieta, FACS [address] | Op) | | | | [place], [place] | [address] [place] | | | | | [address] | [place] [address] | | | | | [phone] | [phone] | | | | | | | [...] [place] | | | | | | [place] [address] | | | | | | [phone] | | | | | | | | +--------+---------+ + + + documented as of this encounter Visit Diagnoses Not on filedocumented in this encounter"
--- OUTSIDE RECORDS SUMMARY | ~2019-03-08 | XMS | Encounter Summary ---
Demographics + + + | Address | [address] | | | [place] [address] | + + + | Home Phone [...] | | | | | [place] [address] | | + + + + + | Thania Mallory | ECON | [address] | | | | | [place] [address] | | + + + + + | Deidra Weldon | ECON | [address] | | | | | [place] | | | | | [address] | | + + + + + Care Team Providers + +------+ + | Care Solar Sales Manager Name | Role | Phone | [...] | | | [address] | [facility] | | | | | [address] [place], | [place], [place] | | | | | [place] [address] | [address] | | | | | [phone] | | | +--------+ + + + [...] Denise | | | | | | [place], [place] | | | | | | [address] | | | | | | [phone] | | | | | | | | +--------+ + + + + documented as of this encounter Visit Diagnoses + + | Diagnosis | + + | 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
--- OUTSIDE RECORDS SUMMARY | ~2019-03-08 | XMS | Encounter Summary ---
Demographics + + + | Address | [address] | | | [place] [address] | + + + | Home Phone [...] | [facility] | | | and [place] | + + + | Organization | [facility] | | [...] Team Providers + +------+ + | Care Counter Cutter Name | Role | Phone | + +------+ + PCP | Unavailable | + +------+ + Reason for Visit + + + | Reason | Comments | + + + | Appointment | | + + + Encounter Details +--------+ + + + + | Date | Type | Department | Care Team | Description | +--------+ + + + + | 03/10/ | Telephone | [facility] [place] | Daniela Ibarra W, | Appointment | | 2014 | | NEPHROLOGY [address] | MD [address] | | | | | [address] | [address] [place] | | | | | [place], [place] | [place] [address] | | | | | [address] | [phone] | | | | | [phone] | | | +--------+ + + + [...] [place] | | | | | | [place] [address] | | | | | | [phone] | | | | | | | | +--------+---------+ + + + documented as of this encounter Visit Diagnoses Not on filedocumented in this encounter"
--- OUTSIDE RECORDS SUMMARY | ~2019-03-08 | XMS | Encounter Summary ---
Demographics + + + | Address | [address] | | | [place] [address] | + + + | Home Phone [...] + | Author | [facility] | | | and [place] | + + + | Organization | [facility] | [...] Providers + +------+ + | Care Manager University Name | Role | Phone | + +------+ + | Tien Nicholson MD | PCP | | + +------+ + Encounter Details +--------+ + + + + | Date | Type | Department | Care Team | Description | +--------+ + + + + | 07/18/ | Hospital | [facility] | Mary Mckay, | Febrile illness; | | 2019 - | Encounter | [facility] | [address] | Recurrent pleural | | | | CARE FLOOR [address] | [place] [address] | effusion on right; | | 07/24/ | | [address] | [phone] | Hypoxia; History of | | 2019 | | [place], [place] | | end stage renal | | | | [address] | | disease; ESRD on | | | | [phone] | | hemodialysis ([facility]); | | | | | | Anemia in ESRD | | | | | | (end-stage renal | | | | | | disease) ([facility]); | | | | | | Moderate to severe | | | | | | pulmonary | | | | | | hypertension ([facility]); | | | | | | Chronic right-sided | | | | | | heart failure ([facility]); | | | | | | [...] 1306 Date of Service: 07/24/18905 Status: Signed Pole Tester: Usha Martínez MD (Physician) [facility] Service: Hospitalist Discharge Summary Date of Admission: [...] renal disease on hemodialysis Monday and Monday (expert witness Dr. 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, hypertension, asthma, chronic combined heart failure, severe pulmonary hypertension, cor pulmonale, moderate mitral valve regurgitation, severe tricuspid regurgit ation and other chronic comorbidities who was discharged on 05/2018 from [facility] with bilateral pleural effusions and ascites status post thoracentesis 1.5 L removed transudative and 4 L ascitic fluid removed who presents to [facility] ER from [place] [facility] for sepsis likely seco ndary to [...] after discharge and to follow -up with expert witness and senior data warehouse architect within 1 to 2 weeks after discharge [...] AV FISTULA; Surgeon: Rik Simon MD; Location: [facility] MAIN OR; Service: Vascula r; Laterality: Left; cephalic AV FISTULA REPAIR Left 03/07/2014 Procedure: AV FISTULA - GRAFT REPAIR/REVISION; Surgeon: Rik Simon MD; Location: [facility] IN OR; Service: Vascular; Laterality: Left; DECLOT GRAFT Left 03/07/2014 Procedure: GRAFT - DECLOT; Surgeon: Rik Simon MD; Location: [facility] MAIN OR; Service: Vas cular; Laterality: Left; DIALYSIS FISTULA CREATION N/A 04/08/2014 Procedure: DIALYSIS CATHETER - INSERTION; Surgeon: Rik Simon MD; Location: [facility] OR ; Service: Vascular; Laterality: N/A; tunneled catheter LAPAROSCOPIC PERITONEAL DIALYSIS CATHETER INSERTION x2 LAPAROSCOPIC PERITONEAL DIALYSIS CATHETER INSERTION Right 07/2013 current dialysis access MWF dialysis RENAL BIOPSY RENAL BIOPSY Left 2003 SUPERFICIALIZATION OF AV FISTULA Left 06/24/2014 Procedure: AV FISTULA - SUPERFICIALIZATION; Surgeon: Rik Simon MD; Location: [facility] OR; Service: Vascular; Laterality: Left; Allergies Allergen [...] PH Unknown 7.48 Fluid culture w/gram stain [[id number]] Collected: 07/21/18 1400 Order Status: Completed Lab Status: Preliminary result Updated: 07/24/18 0948 Specimen: Body Fluid from Thoracic Fluid Specimen Description THORACIC FLUID GRAM STAIN NO CELLS OR ORGANISMS SEEN CULTURE NO GROWTH 3 DAYS Fluid total protein (Body fluid) [[id number]] Collected: 07/21/18 1400 Order Status: Completed Lab Status: Final result Updated: 07/21/18 165 Specimen: Body Fluid from Thoracentesis Fluid FLUID TOTAL PROTEIN 4.2 g/dL Comment: This is not a lawn sprinkler servicer validated sample type for this method. No reference ra nges have been established. Testing performed at [facility], [address] [place] [address] FLUID TP SOURCE THORACENTESIS Comment: Testing performed at [facility];[address] [place] [address] Lactate dehydrogenase, body fluid [[id number]] Collected: 07/21/18 1400 Order Status: Completed Lab Status: Final result Updated: 07/21/181649 Specimen: Body Fluid from Thoracentesis Fluid FLUID LDH 148 U/L Comment: This is not a lawn sprinkler servicer validated sample type for this method. No reference ra nges have been established. Testing performed at [facility], [address] [place] [address] pH, body fluid [[id number]] Collected: 07/21/18 1400 Order Status: Completed Lab Status: Final result Updated: 07/21/18 1426 Specimen: Body Fluid from Thoracentesis Fluid FLUID PH 7.48 Comment: Testing performed at [facility];[address] [place] [address]39[address] Blood Culture Set 1 [[id number]] Collected: 07/19/18 0853 Order Status: Completed Lab Status: Preliminary result Updated: 07/21/18 06 Specimen: Blood from Blood, peripheral draw Specimen Description BLOOD, PERIPHERAL DRAW SPECIAL REQUESTS RIGHT AC CULTURE NO GROWTH 2 DAYS Blood Culture Set 2 [[id number]] Collected: 07/19/18 0925 Order Status: Completed Lab Status: Preliminary result Updated: 07/21/18 06 Specimen: Blood from Blood, peripheral draw Specimen Description BLOOD, PERIPHERAL DRAW SPECIAL REQUESTS RT FOREARM CULTURE NO GROWTH 2 DAYS Respiratory Filmarray [[id number]] (Abnormal) Collected: 07/19/18 0132 Order Status: Completed [...] by Molecular Methodology Comment: Testing performed at [facility], [address] [place] [address] MRSA by PCR [[id number]] Collected: 07/19/18 013 Order Status: Completed Lab Status: Final result Updated: 07/19/18303 Specimen: Nasal from Nares(Nose) SOURCE NARES(NOSE) MRSA PCR NEGATIVE Comment: Testing performed at [facility];[address] [place] [address];[place] [address] Disposition: Home Condition: Stable Code Status: Full [...] Follow up: Tien Nicholson MD [address] [facility], [address] [place] [address] Schedule an appointment as soon as possible for a visit in 1 week [facility] [address] [place] [address] Schedule an appointment as soon as possible for a visit in 1 week [facility] [address] [place] [address] Schedule an appointment as soon as [...] | | | | | renal disease) ([facility]) | protocol | | | | [...] Date of Service: 07/24/18 1028 Status: Signed Pole Tester: Iram Saleh RN (Registered Nurse) Disposition: Home [...] Date of Service: 07/24/18 1016 Status: Signed Pole Tester: Christina Aguilar RN (Registered Nurse) Discharge teaching given, prescriptions faxed by case consultant to pt's pharmacy. Pt denies c oncern. Ride home at bedside. Pt getting dressed now for discharge. onver arturo Transaction, Provider Unknown - 07/24/2018 10:12 AM PDT Case Management by Iram Saleh RN at 07/24/18 1012 Author: Iram Saleh RN Service: (none) Author Type: Registered Nurse Filed: 07/24/18 1014 Date of Service: 07/24/18 1012 Status: Signed Pole Tester: Iram Saleh RN (Registered Nurse) Discharge planning: Met with pt, she indicated her friend is on her way to transport her from the hospital, no other needs identified. ADÁN signed and copy placed in chart. Pt's discharge prescriptions was faxed to [facility], Billie Braxton MD - 07/24/2018 9:09 AM PDTFormatting of this note might be different from th e original. Progress Notes by Billie Gupta MD at 07/24/18 09 Author: Billie Gupta MD Service: Nephrology Author Type: Physician Filed: 07/24/18910 Date of Service: 07/24/18908 Status: Signed Pole Tester: Billie Gupta MD (Physician) [facility] Followup -Nephrology I saw Ms. Dara Louise today for follow-up. she is interviewed, examined and meds/ labs Have been reviewed. 23-year-old female with an extensive past medical history of IgA vasculitis, end-stage abdiel l disease on hemodialysis Monday and Monday (expert witness Dr. Anguiano) , chronic c ombined heart failure, severe pulmonary hypertension, cor pulmonale, moderate mitral valve r egurgitation, severe tricuspid regurgitation and other chronic comorbidities who was dischar ged on 05/2018 from [facility] with bilateral pleural effusions and ascites status post thoracente sis 1.5 L removed transudative and 4 L ascitic fluid removed who presents to [facility] ER f [place] [facility] for [...] 07/24/18524 Date of Service: 07/24/18454 Status: Signed Pole Tester: Minda Hudson RN (Registered Nurse) Pt reporting [...] (none) Author Type: Registered Nurse Filed: 07/23/18 5565 Date of Service: 07/23/181825 Status: Signed Pole Tester: Saundra Hartley RN (Registered Nurse) Pt continues [...] 07/23/181336 Date of Service: 07/23/181335 Status: Signed Pole Tester: Sotero Reinoso MD (Physician) [facility] Service: Hospitalist Progress Note Hospital Day: LOS: 4 days Briefly, 23-year-old female with an extensive past medical history of IgA vasculitis, end-s tage renal disease on hemodialysis Monday and Monday (expert witness Dr. Anguiano) co mplicated with thrombosis of vascular dialysis stent on Plavix, hypertension, asthma, chroni c combined heart failure, severe pulmonary hypertension, cor pulmonale, moderate mitral valv e regurgitation, severe tricuspid regurgitation and other chronic comorbidities who was disc harged on 05/2018 from [facility] with bilateral pleural effusions and ascites status post thorace ntesis 1.5 L removed transudative and 4 L ascitic fluid removed who presents to [facility] E R from [place] ER for sepsis likely secondary to pulmonary [...] weeks after discharge and to follow-up with expert witness and senior data warehouse architect within 1 to 2 weeks after discharge [...] range Anemia in ESRD (end-stage renal disease) ([facility]) ASSESSMENT & PLAN 1. Sepsis: -Hemodynamically stable. -Noted at [facility] the patient was febrile with a T-max [...] The patient does follow up with outpatient senior data warehouse architect (Dr. Mahmood) patient is tentative ly and [...] 07/23/18926 Date of Service: 07/23/18917 Status: Signed Pole Tester: Billie Gupta MD (Physician) [facility] Followup -Nephrology I saw Ms. Dara Louise today for follow-up. she is interviewed, examined and meds/ labs Have been reviewed. 23-year-old female with an extensive past medical history of IgA vasculitis, end-stage abdiel l disease on hemodialysis Monday and Monday (expert witness Dr. Anguiano) , chronic c ombined heart failure, severe pulmonary hypertension, cor pulmonale, moderate mitral valve r egurgitation, severe tricuspid regurgitation and other chronic comorbidities who was dischar ged on 05/2018 from [facility] with bilateral pleural effusions and ascites status post thoracente sis 1.5 L removed transudative and 4 L ascitic fluid removed who presents to [facility] ER f [facility] ER for sepsis likely secondary to pneumonia. [...] 07/23/18622 Date of Service: 07/23/18622 Status: Signed Pole Tester: Shannon Martell RN (Registered Nurse) No acute [...] 07/22/181726 Date of Service: 07/22/181722 Status: Signed Pole Tester: Sotero Reinoso MD (Physician) [facility] Service: Hospitalist Progress Note Hospital Day: LOS: 3 days 23-year-old female with an extensive past medical history of IgA vasculitis, end-stage abdiel l disease on hemodialysis Monday and Monday (expert witness Dr. Anguiano) complicated with thrombosis of vascular dialysis stent on Plavix, hypertension, asthma, chronic combine d heart failure, severe pulmonary hypertension, cor pulmonale, moderate mitral valve regurgi tation, severe tricuspid regurgitation and other chronic comorbidities who was discharged on 05/2018 from [facility] with bilateral pleural effusions and ascites status post thoracentesis 1.5 L removed transudative and 4 L ascitic fluid removed who presents to [facility] ER from [facility] ER for sepsis likely secondary to pneumonia. [...] range Anemia in ESRD (end-stage renal disease) ([facility]) ASSESSMENT & PLAN 1. Sepsis: -Hemodynamically stable. -Noted at [facility] the patient was febrile with a T-max [...] The patient does follow up with outpatient senior data warehouse architect (Dr. Mahmood) patient is tentative ly and [...] Date of Service: 07/22/18 1609 Status: Addendum Pole Tester: Rafaela Patel RN (Registered Nurse) Related Notes: [...] Date of Service: 07/22/18 09 Status: Addendum Pole Tester: Billie Gupta MD (Physician) Related Notes: Original Note by KRISHNA Sahu (Advanced Registered Nurse Practit[facility]) filed at 07/22/18 1057 [facility] Followup -Nephrology I saw Ms. Dara Louise today for follow-up. she is interviewed, examined and meds/ labs Have been reviewed. 23-year-old female with an extensive past medical history of IgA vasculitis, end-stage abdiel l disease on hemodialysis Monday and Monday (expert witness Dr. Anguiano) complicated with thrombosis of vascular dialysis stent on Plavix, hypertension, asthma, chronic combine d heart failure, severe pulmonary hypertension, cor pulmonale, moderate mitral valve regurgi tation, severe tricuspid regurgitation and other chronic comorbidities who was discharged on 05/2018 from [facility] with bilateral pleural effusions and ascites status post thoracentesis 1.5 L removed transudative and 4 L ascitic fluid removed who presents to [facility] ER from [facility] ER for sepsis likely secondary to pneumonia. [...] 0656 Date of Service: 07/22/18653 Status: Signed Pole Tester: Priti Priest RN (Registered Nurse) SBP 80-100's, Pt reports slight lightheadedness with pressures in 80's. Afebrile. HR SR 80' s. No other changes over noc. [facility] Chart chart complete onver arturo Transaction, Provider Unknown - 07/21/2018 7:42 PM PDT Nurse Progress Note by Francesca Bustos RN at 07/21/181941 Author: Francesca Bustos RN Service: (none) Author Type: Registered Nurse Filed: 07/21/181942 Date of Service: 07/21/181941 Status: Signed Pole Tester: Francesca Bustos RN (Registered Nurse) No significant [...] Date of Service: 07/21/18 1233 Status: Signed Pole Tester: Sotero Reinoso MD (Physician) [facility] Service: Hospitalist Progress Note Hospital Day: LOS: 2 days 23-year-old female with an extensive past medical history of IgA vasculitis, end-stage abdiel l disease on hemodialysis Monday and Monday (expert witness Dr. Anguiano) complicated with thrombosis of vascular dialysis stent on Plavix, hypertension, asthma, chronic combine d heart failure, severe pulmonary hypertension, cor pulmonale, moderate mitral valve regurgi tation, severe tricuspid regurgitation and other chronic comorbidities who was discharged on 05/2018 from [facility] with bilateral pleural effusions and ascites status post thoracentesis 1.5 L removed transudative and 4 L ascitic fluid removed who presents to [facility] ER from [facility] ER for sepsis likely secondary to pneumonia. [...] range Anemia in ESRD (end-stage renal disease) ([facility]) ASSESSMENT & PLAN 1. Sepsis: -Hemodynamically stable. -Noted at [facility] the patient was febrile with a T-max [...] The patient does follow up with outpatient senior data warehouse architect (Dr. Mahmood) patient is tentative ly and [...] Date of Service: 07/21/18 1024 Status: Signed Pole Tester: Billie Gupta MD (Physician) [facility] Followup -Nephrology I saw . Dara Louise [...] 07/21/18614 Date of Service: 07/21/18614 Status: Signed Pole Tester: Gris Hawk RN (Registered Nurse) Medicated for pain x1, nausea x1. No other acute changes noted. End of shift review complet e. onver arturo Transaction, Provider Unknown - 07/20/2018 7:44 PM PDT Nurse Progress Note by Francesca Bustos RN at 07/20/181943 Author: Francesca Bustos RN Service: (none) Author Type: Registered Nurse Filed: 07/20/181945 Date of Service: 07/20/181943 Status: Signed Pole Tester: Francesca Bustos RN (Registered Nurse) No significant [...] 07/20/181624 Date of Service: 07/20/181624 Status: Signed Pole Tester: Prashanth Estevez RN (Registered Nurse) Infection Prevention [...] completed Mycoplasma pneumoniae Droplet (DI) Prashanth Estevez [facility] blemo Sotero parker MD - 07/20/2018 4:15 PM PDT Progress Notes by Sotero Reinoso MD at 07/20/181614 Author: Sotero Reinoso MD Service: Hospitalist Author Type: Physician Filed: 07/20/181625 Date of Service: 07/20/181614 Status: Signed Pole Tester: Sotero Reinoso MD (Physician) [facility] Service: Hospitalist Progress Note Hospital Day: LOS: 1 day 23-year-old female with an extensive past medical history of IgA vasculitis, end-stage abdiel l disease on hemodialysis Monday and Monday (expert witness Dr. Anguiano) complicated with thrombosis of vascular dialysis stent on Plavix, hypertension, asthma, chronic combine d heart failure, severe pulmonary hypertension, cor pulmonale, moderate mitral valve regurgi tation, severe tricuspid regurgitation and other chronic comorbidities who was discharged on 05/2018 from [facility] with bilateral pleural effusions and ascites status post thoracentesis 1.5 L removed transudative and 4 L ascitic fluid removed who presents to [facility] ER from [place] [facility] for [...] range Anemia in ESRD (end-stage renal disease) ([facility]) ASSESSMENT & PLAN 1. Sepsis: -Hemodynamically stable. -Noted at [facility] the patient was febrile with a T-max [...] The patient does follow up with outpatient senior data warehouse architect (Dr. Mahmood) patient is tentative ly and [...] Date of Service: 07/20/18 1507 Status: Signed Pole Tester: Stephanie Hirsch RN (Registered Nurse) 07/20/18 1500 [...] Oriented Prior functional status independent Power of Lumber Loader No Anticipated Discharge Plan Post Acute Care Needs None at this time Plan communicated to patient/family Yes Resources Financial concerns No Transportation issues No Patient/Family concerns No Prescription Plan Yes Name of Pharmacy [facility] Previous home health equipment [...] resources utilized / needed: Dialysis M/W/F @ [facility] Assistance in transportation: pov w/friends Identification of [...] Date of Service: 07/20/18 0850 Status: Signed Pole Tester: KRISHNA Nice (Advanced Registered Nurse Practitioner) [facility] Service: Radiology Progress Note Patient evaluated for [...] 07/20/18655 Date of Service: 07/20/18654 Status: Signed Pole Tester: Nereida Edwards RN (Registered Nurse) VS stable. [...] 07/19/181925 Date of Service: 07/19/181925 Status: Signed Pole Tester: Francesca Bustos RN (Registered Nurse) No significant [...] Service: Nephrology Author Type: Physician Filed: 07/19/18 4562 Date of Service: 07/19/181349 Status: Signed Pole Tester: Antonio Pabon MD (Physician) [facility] Service: NEPHROLOGY Dialysis Note Dara Louise 23 y.o. [id number] female [facility] Day: LOS: 0 days 23-year-old female [...] AV FISTULA; Surgeon: Rik Simon MD; Location: [facility] OR; Service: Vascula r; Laterality: Left; cephalic AV FISTULA REPAIR Left 03/07/2014 Procedure: AV FISTULA - GRAFT REPAIR/REVISION; Surgeon: Rik Simon MD; Location: [facility] IN OR; Service: Vascular; Laterality: Left; DECLOT GRAFT Left 03/07/2014 Procedure: GRAFT - DECLOT; Surgeon: Rik Simon MD; Location: [facility] MAIN OR; Service: Vas cular; Laterality: Left; DIALYSIS FISTULA CREATION N/A 04/08/2014 Procedure: DIALYSIS CATHETER - INSERTION; Surgeon: Rik Simon MD; Location: [facility] MAIN OR ; Service: Vascular; Laterality: N/A; tunneled catheter LAPAROSCOPIC PERITONEAL DIALYSIS CATHETER INSERTION x2 LAPAROSCOPIC PERITONEAL DIALYSIS CATHETER INSERTION Right 07/2013 current dialysis access MWF dialysis RENAL BIOPSY RENAL BIOPSY Left 2003 SUPERFICIALIZATION OF AV FISTULA Left 06/24/2014 Procedure: AV FISTULA - SUPERFICIALIZATION; Surgeon: Rik Simon MD; Location: [facility] MAIN OR; Service: Vascular; Laterality: [...] on file Social History Narrative Lives in [facility], 2 wks ago fell at home , [...] earlier and charting completed later Dictation software, [employer], used which may contain error for similar [...] Date of Service: 07/19/18 1020 Status: Signed Pole Tester: Francesca Bustos RN (Registered Nurse) No significant [...] Date of Service: 07/19/18 0801 Status: Addendum Pole Tester: Sotero Reinoso MD (Physician) Related Notes: Original Note by Sotero Reinoso MD (Physician) filed at 07/19/18 4845 [facility] Service: Hospitalist Progress Note Hospital Day: LOS: 0 days 23-year-old female with an extensive past medical history of IgA vasculitis, end-stage abdiel l disease on hemodialysis Monday and Monday (expert witness Dr. Anguiano) complicated with thrombosis of vascular dialysis stent on Plavix, hypertension, asthma, chronic combine d heart failure, severe pulmonary hypertension, cor pulmonale, moderate mitral valve regurgi tation, severe tricuspid regurgitation and other chronic comorbidities who was discharged on 05/2018 from [facility] with bilateral pleural effusions and ascites status post thoracentesis 1.5 L removed transudative and 4 L ascitic fluid removed who presents to [facility] ER from [facility] ER for sepsis likely secondary to pneumonia. [...] -Hemodynamically stable except for tachycardia. -Noted at [facility] the patient was febrile with a T-max [...] The patient does follow up with outpatient senior data warehouse architect (Dr. Mahmood) patient is tentative ly and [...] 07/19/18129 Date of Service: 07/19/18129 Status: Signed Pole Tester: Jae Gutierres RPH (Pharmacist) Renal Dosing Monitoring: [...] [address] | | | | | | [place] [address] | | | | | | [phone] | | | | | | | [...] | | | | performed at [facility];[address] | | LAB | | | | [address];[place] | | | | | | [address] | | | | + + + [...] | | | | performed at [facility];[address] | | | | | | [facility];[place], [place] | | | | | | [address] | | | | + + + [...] | | | | performed at [facility];[address] | | | | | | [address] [facility];[place], [place] | | | | | | [address] | | | | + + + [...] EXTERNAL | | | | performed at [facility], [address] | | LAB | | | | [facility], | | | | | | [place] [address] | | | | + + + [...] | | | | | performed at [facility], [address] | | | | | | [facility], | | | | | | [place] [address] | | | | + + + [...] | EXTERNAL LAB | | not a lawn sprinkler servicer validated sample type for this method. No reference | | | ranges have been established. Testing performed at [facility], [address] | | | [place] [address] FLUID TP SOURCE | | | THORACENTESIS Testing performed at [facility];[address] | [address];[place] [address] | | + + + + +---------+ [...] EXTERNAL LAB | | is not a lawn sprinkler servicer validated sample type for this method. No | | | reference ranges have been established. Testing performed at [facility], | | | [address] [place] [address] | | + + + + +---------+ [...] LAB | | Testing performed at [facility];[address] [place] [address];[place] [address] | | + + + + +---------+ [...] | | | | performed at [facility];888 | | LAB | | | | Nica Oropeza;[place] | | | | | | [address] | | | | + + + [...] | | | | performed at [facility];888 | | LAB | | | | Nica Oropeza;[place], [place] | | | | | | [address] | | | | + + + [...] with arms on the | | | glcy-kli-hgc table. Ultrasound was utilized to tk an [...] | | | possibility of "sound alike" mobile lab technician errors, addition and/or | | | deletions [...] at the bedside with arms on the cbwt-kus-kiv | | table. Ultrasound was utilized to [...] recognition system. The possibility of "sound alike" mobile lab technician errors, | | addition and/or deletions may [...] system. The possibility of "sound a like" mobile lab technician errors, addition and/or deletions may occur. If [...] | | | | | | at [facility], [address] | | | | | | [address], | | | | | | [place] [address] | | | | | |Testing performed at [facility], [address], [place] [address] | | | | | | | [...] | | | | | performed at [facility], [address] | | | | | | Opal [place]rope[place], | | | | | | [place] [address] | | | | + + + [...] | | | | performed at [facility];888 | mmol/L | LAB | | | | Nica Oropeza;[place], [place] | | | | | | [address] | | | | + + + [...] | | Patient | performed at [facility];888 | | LAB | | | | Nica Oropeza;[place], [place] | | | | | | [address] | | | | + + + [...] | | | | performed at [facility];888 | | | | | | Nica [address]pe[address];[place], [place] | | | | | | [address] | | | | + + + [...] | | Estimate | performed at [facility] | | LAB | | | | Nica Oropeza;[place], [place] | | | | | | [address] | | | | + + + [...] | | | | performed at [facility] | | | | | | [facility];[place], [place] | | | | | | [address] | | | | + + + [...] | | | | | | [facility];[address] [place] [address] | | | | | | [facility];[place] [address] | | | | + + + [...] | | | | performed at [facility];888 | | | | | | [facility];[place], [place] | | | | | | [id number] ON 07/19 | | | | | [...] | | | | | | [facility];[address] [place] [address] | | | | | | Blvd;[place] [address] | | | | + + + [...] | | | | | | at [facility], [address] | | | | | | [facility], | | | | | | [place] [address] | | | | | |Testing performed at [facility], [address] [facility], [place] [address] | | | | | | | [...] EXTERNAL | | | | performed at [facility], [address] | | LAB | | | | Opal [facility], | | | | | | [place] [address] | | | | + + + [...] EXTERNAL | | | | performed at [facility], [address] | | LAB | | | | Opal Oropeza, | | | | | | [place] [address] | | | | + + + [...] | | | | | performed at [facility], [address] | | | | | | [facility], | | | | | | [place] [address] | | | | + + + [...] Testing | | | performed at [facility];[address] [place] [address];[place] [address] | | + + + + +---------+ [...] at | | | TCL, [address] [place] [address] | | + + + + +---------+ [...] | | | | performed at [facility];888 | mmol/L | LAB | | | | Nica Oropeza;[place] | | | | | | [address] | | | | + + + [...] | | | | | at [facility];[address] [place] [address] | | | | | | [facility];[place] [address] | | | | + + + [...] | | | | | | [facility];[address] | | | | | | Blvd;[place] [address] | | | | + + + [...] | | QUALITATIVE | performed at [facility] | | LAB | | | | Nica Oropeza;[place] | | | | | | [address] | | | | + + + [...] | Anemia in ESRD (end-stage renal disease) ([facility]) Anemia in chronic kidney disease | + + | Moderate to severe pulmonary hypertension (HCC) Other chronic pulmonary heart | | diseases | + + | Chronic right-sided heart failure (HCC) Congestive heart failure, unspecified | + + | Pleural effusion on right Unspecified pleural effusion | + + documented in this encounter
--- OUTSIDE RECORDS SUMMARY | ~2019-03-08 | XMS | Encounter Summary ---
Demographics + + + | Address | [address] | | | [place] [address] | + + + | Home Phone [...] Author | [facility] | | | and [place] | + + + | Organization | [facility] | [...] Team Providers + +------+ + | Care Pediatric Neurologist Name | Role | Phone | + [...] NEPHROLOGY [address] | MD [address] [place] | (Asymptomatic) | | | | [address] | [address] [place] | | | | | [place], [place] | [place] [address] | | | | | [address] | [phone] | | | | | [phone] | | | +--------+ + + + [...] AM PDTHEMO progress note manually faxed to [facility] [place], e-faxed to Lianna [facility] Pediatric Nephrology on 09/30. Daniela Marquez MD - 09/20/2013 2:55 PM PDT Comprehensive Dialysis Monthly Note Date of visit: 09/20/2013 Dialysis Clinic: [facility] Mode of dialysis: Hemodialysis Dialysis prescription: MWF, [...] Date Noted ESRD (end stage renal disease) ([facility]) Priority: High Note Last Updated: 07/29/2013 Due to Henoch-Schonlein purpura. On hemodialysis, started July 2013. Prior on peritoneal dialysis, started 2012. Access: R chest catheter. Peritonitis, dialysis-associated ([facility]) 07/29/2013 Note Last Updated: 07/29/2013 Due to MSSA. Had tunneled infection as well. PD catheter removed in July 2013. On Keflex till 08/01/13. History of Henoch-Schonlein purpura Note Last Updated: 07/29/2013 Diagnosed at age 10[address] Joy, pediatric neurologist. 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 Pt has been referred to [facility]. -pt will f/u with them next month [facility]ianna Joy, [facility] Pediatric Nephrology documented in this encounter Plan [...] [address] | | | | | | [place] [address] | | | | | | [phone] | | | | | | | [...]
--- OUTSIDE RECORDS SUMMARY | ~2019-03-08 | XMS | Encounter Summary ---
Demographics + + + | Address | [address] | | | [place] [address] | + + + | Home Phone [...] | [facility] | | | and [place] | + + + | Organization | [facility] | | | and [...] Team Providers + +------+ + | Care Ekg Monitor Name | Role | Phone | [...] NEPHROLOGY [address] | M, DO [address] | | | | | [address] | [place], [address] | | | | | [place], [place] | [place], [place] | | | | | [address] | [address] | | | | | [phone] | | | +--------+ + + + [...] [place] | | | | | | [place] [address] | | | | | | [phone] | | | | | | | | +--------+---------+ + + + documented as of this encounter Visit Diagnoses Not on filedocumented in this encounter"
--- OUTSIDE RECORDS SUMMARY | ~2019-03-08 | XMS | Encounter Summary ---
Demographics + + + | Address | [address] | | | [place] [address] | + + + | Home Phone [...] | | | | | [place] [address] | | + + + + + | Thania Mallory | ECON | [address] | | | | | [place] [address] | | + + + + + | Deidra Weldon | ECON | [address] | | | | | [place] | | | | | [address] | | + + + + + Care Team Providers + +------+ + | Care Linoleum Layer Helper Name | Role | Phone | [...] | [address] | consultation | | | | [address] | [address] | (psychosocial update | | | | [place], | [place], [place] | from pt's mom) | | | | [place] [address] | [address] | | | | | [phone] | | | +--------+ + + + [...] Denise | | | | | | [place] | | | | | | [address] | | | | | | [phone] | | | | | | | | +--------+ + + + + documented as of this encounter Visit Diagnoses Not on filedocumented in this encounter"
--- OUTSIDE RECORDS SUMMARY | ~2019-03-08 | XMS | Encounter Summary ---
Demographics + + + | Address | [address] | | | [place] [address] | + + + | Home Phone [...] | | | | | [place] [address] | | + + + + + | Thania Mallory | ECON | [address] | | | | | [place] [address] | | + + + + + | Deidra Weldon | ECON | [address] | | | | | [place] | | | | | [address] | | + + + + + Care Team Providers + +------+ + | Care Parent Trainer Name | Role | Phone | + [...] | | | | | [address] [place], | [place], [place] | | | | | [place] [address] | [address] | | | | | [phone] | | | +--------+ + + + [...] Denise | | | | | | [place], [place] | | | | | | [address] | | | | | | [phone] | | | | | | | [...]
--- OUTSIDE RECORDS SUMMARY | ~2019-03-08 | XMS | Encounter Summary ---
Demographics + + + | Address | [address] | | | [place] [address] | + + + | Home Phone [...] | [facility] | | | and [place] | + + + | Organization | [facility] | | | and [...] Team Providers + +------+ + | Care Teller Manager Name | Role | Phone | [...] NEPHROLOGY [address] | M, DO [address] | | | | | [address] | [place], [address] | | | | | [place], [place] | [place], [place] | | | | | [address] | [address] | | | | | [phone] | | | +--------+ + + + [...] DAV[place]SON | | | | | | [place] [address] | | | | | | [phone] | | | | | | | | +--------+---------+ + + + documented as of this encounter Visit Diagnoses Not on filedocumented in this encounter"
--- OUTSIDE RECORDS SUMMARY | ~2019-03-08 | XMS | Encounter Summary ---
Demographics + + + | Address | [address] | | | [place] [address] | + + + | Home Phone [...] | Author | [facility] | | | and [place] | + + + | Organization | [facility] | [...] Team Providers + +------+ + | Care Wash Rack Operator Name | Role | Phone | [...] | | KIDNEY TRANSPLANT | [address] [place], | | | | | [address] [place] | [place] [address] | | | | | [address] [place], [place] | [phone] | | | | | [address] | | | | | | [phone] | | | +--------+ + + + [...] [address] | | | | | | [place] [address] | | | | | | [phone] | | | | | | | | +--------+---------+ + + + documented as of this encounter Visit Diagnoses Not on filedocumented in this encounter"
--- OUTSIDE RECORDS SUMMARY | ~2019-03-08 | XMS | Encounter Summary ---
Demographics + + + | Address | [address] | | | [place] [address] | + + + | Home Phone [...] | | | | | [place] [address] | | + + + + + | Thania Mallory | ECON | [address] | | | | | [place] [address] | | + + + + + | Deidra Weldon | ECON | [address] | | | | | [place] | | | | | [address] | | + + + + + Care Team Providers + +------+ + | Care Wort Extractor Name | Role | Phone | + [...] 2015 | erpretation | Cardiology at | [address] [facility] | disease (HCC) | | | | [place] | [address] | (Primary Dx) | | | | [facility] | [place], [place] | | | | | [address] | [address] | | | | | Mailcode: LEYLA | [phone] | | | | | [place] | | | | | | [place], [place] | | | | | | [address] | | | | | | [phone] | | | +--------+ + + + [...] | | | | | | [place], [place] | | | | | | [address] | | | | | | [phone] | | | | | | | [...] | | | | ([facility]) Chronic | | | | | | kidney disease, | | | | | | stage V ([facility]) | | + +--------+ + + + documented in this encounter Visit Diagnoses + + | Diagnosis | + + | End-stage renal disease (HCC) - Primary End stage renal disease | + + documented in this encounter"
--- OUTSIDE RECORDS SUMMARY | ~2019-03-08 | XMS | Encounter Summary ---
Demographics + + + | Address | [address] | | | [place] [address] | + + + | Home Phone [...] | Author | [facility] | | | and [place] | + + + | Organization | [facility] | [...] Team Providers + +------+ + | Care Panel Laminator Name | Role | Phone | + [...] | | [address] | [place], [address] | | | | | [place], [place] | [place], [place] | | | | | [address] | [address] | | | | | [phone] | | | +--------+ + + + [...] DAV[place]SON | | | | | | [place] [address] | | | | | | [phone] | | | | | | | | +--------+---------+ + + + documented as of this encounter Visit Diagnoses Not on filedocumented in this encounter"
--- OUTSIDE RECORDS SUMMARY | ~2019-03-08 | XMS | Encounter Summary ---
Demographics + + + | Address | [address] | | | [place] [address] [...] | Author | [facility] | | | and [place] | + + + | Organization | [facility] [...] + +------+ + | Care Medical Office Assistant Instructor Name | Role | Phone | [...] NEPHROLOGY [address] | M, DO [address] [place] | | | | | [address] | [place], [address] | | | | | [place], [place] | [place], [place] | | | | | [address] | [address] | | | | | [phone] | | | +--------+ + + + [...] Dr. Camp's progress note from 12/30/13 to [facility] Nephrology (fx: [phone]) on 01/20/14. documented in this encounter Plan [...] [address] | | | | | | [place] [address] | | | | | | [phone] | | | | | | | | +--------+---------+ + + + documented as of this encounter Visit Diagnoses Not on filedocumented in this encounter"
--- OUTSIDE RECORDS SUMMARY | ~2019-03-08 | XMS | Encounter Summary ---
Demographics + + + | Address | [address] | | | [place] [address] | + + + | Home Phone [...] | | | | | [place] [address] | | + + + + + | Thania Mallory | ECON | [address] | | | | | [place] [address] | | + + + + + | Deidra Weldon | ECON | [address] | | | | | [place] | | | | | [address] | | + + + + + Care Team Providers + +------+ + | Care Director Clinical Operations Name | Role | Phone | + +------+ + | Shahid Camargo MD | PCP | | + +------+ + Encounter Details +--------+ + + + + | Date | Type | Department | Care Team | Description | +--------+ + + + + | 12/19/ | Document-Sc | UNKNOWN DEPARTMENT | Unknown . | | | 2012 | anned | [address] [facility] [address] [address] [facility] | | | | | | [facility] | | | | | | [place], [place] | | | | | | [address] | | | +--------+ + + + [...] Denise | | | | | | [place], [place] | | | | | | [address] | | | | | | [phone] | | | | | | | | +--------+ + + + + documented as of this encounter Visit Diagnoses Not on filedocumented in this encounter"
--- OUTSIDE RECORDS SUMMARY | ~2019-03-08 | XMS | Encounter Summary ---
Demographics + + + | Address | [address] | | | [place] [address] | + + + | Home Phone [...] | Author | [facility] | | | and [place] | + + + | Organization | [facility] | [...] Providers + +------+ + | Care Signal Timer Name | Role | Phone | + [...] | ESRD (end | Sudhakar Castellanos, | Jroje Obrien DO | | | | | stage renal | [address] | [address] [place] [address] | | | | | disease) | [address] Griffin | [place] | | | | | ([facility]) | [address] | [address] [place] | | | | | Anemia in | [place], [place] | [place] | | | | | ESRD | [address] | [address] Phone: | | | | | (end-stage | Phone: | [phone] | | | | | renal | [phone] | Fax: | | | | | disease) | Fax: | [phone] | | | | | ([facility]) | [phone] | | | | | | Procedures [...] | | [address] | [place], [address] | (Primary Dx) | | | | [place], [place] | [place], [place] | | | | | [address] | [address] | | | | | [phone] | | | +--------+ + + + [...] She is see n on HD at [facility], with QB = 450. Unfortunately, she is consistently plagued by unexplained absenteeism from treatments. Despite having reliable transportation arranged b y the Pacu Nurse. She apparently still lacks meaningful plans for [...] last 3 mo. I think that her tonto apache Dry wt = 97.5 kg? 3. SHPTH--not [...] our office, myself or Dr. Ibarra. : [place] Fina Joy M.D., Pediatric Nephrology, [facility] [...] [address] | | | | | | [place] [address] | | | | | | [phone] | | | | | | | | +--------+---------+ + + + documented as of this encounter Visit Diagnoses + + | Diagnosis | + + | ESRD (end stage renal disease) (HCC) - Primary End stage renal disease | + + documented in this encounter"
--- OUTSIDE RECORDS SUMMARY | ~2019-03-08 | XMS | Encounter Summary ---
Demographics + + + | Address | [address] | | | [place] [address] | + + + | Home Phone [...] + | Author | [facility] | | | and [place] | + + + | Organization | [facility] | [...] | stage renal | [address] | [address] [place] [address] | | | | | disease) | Shun Griffin | [place] | | | | | ([facility]) | [address] | [address] [place] | | | | | Anemia in | [place], [place] | [place] | | | | | ESRD | [address] | [address] Phone: | | | | | (end-stage | Phone: | [phone] | | | | | renal | [phone] | Fax: | | | | | disease) | Fax: | [phone] | | | | | ([facility]) | [phone] | | | | | | Procedures [...] | +--------+ + + + + | 04/27/ | Off-Site | [facility] | Jorje Camp | ESRD (end stage | | 2016 | Visit | NEPHROLOGY [address] | M, DO [address] | renal disease) ([facility]) | | | | [address] | [place], [address] | (Primary Dx) | | | | [place], [place] | [place], [place] | | | | | [address] | [address] | | | | | [phone] | | | +--------+ + + + [...] + + + | Blood Pressure | 142/84 | 04/27/2015 4:20 PM | | | | | PST | | + + + + + | Pulse | - | - | | + + + + + | Temperature | 36.4 C (97.5 F) | 04/27/2015 4:20 PM | | | | | PST [...] encounter Progress Notes Jorje Camp DO - 05/05/2015 4:20 PM PST Subjective: DIALYSIS NOTE Patient ID: Dara Weldon is a 20 y.o. female. 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 She also has anemia secondary to CKD, SHPTH, centripetal obesity . Her d ialysis runs are uneventful. Unfortunately, after lengthy discussion with Dara, she has n o concrete plans for her future, especially in terms of education or employment. Outpatient Prescriptions Marked as Taking for the 04/27/15 encounter (Off-Site Visit) with Camille Camp DO [...] tapes Morphine Itching and Rash Objective: BP 142/84 mmHg | Temp(Src) 36.4 C (97.5 F) EDW 101 kg Physical Exam Heart: Regular rate and rhythm with no S3, S4, murmur or rub. Lungs: CTA bilaterally. No rales or wheezes. Abdomen: Soft, obese, nontender, normoactive bowel sounds, no CVA tenderness.. Extremities: No clubbing, cyanosis, or edema. QB 400 at left arm AVF. LAB: BUN 40, Cr 9.2, K+ 3.8, HCO3 22, Ca++ 9.5, PO4 6.8, PTH 633, Alb 3.8, Hb 12.5, TSat. = 47 %, Ferritin 682, eKT/V = 1.81. Assessment: 1. ESRD-- she appears well dialyzed clinically on the current Rx. 2. Hypertension--fairly good control form review of her tx records. 3. SHPTH--her PTH is some better on Sensipar. She does appear to be doing some better wi th her compliance with Renvela. 4. Nutrition--her albumin is slightly improved this month. 5. Transplantation-- honestly , I think that Dara is too immature to monitor a renal all ograft and its attendant immunosuppression at this point. My gut feeling is that she would be at high risk for graft loss due to noncompliance ? Hopefully, with time, her behavior wi ll change . 6. Anemia-- She appears to have had a robust response to EPO, therefore , it is on hold. Her Fe stores appear excellent. Plan: 1. She appears stable on the current Rx, thrice weekly. 2. Will continue the Sensipar and Hectorol, at the current dose. 3. Will recheck her in one week. 4. Unfortunately, due to her lack of motivation, I still have significant reservations abo ut her being a listed for an allograft. Her maturity level is the main deterrent? CC: Jamil Harden documented in thi s [...] [address] | | | | | | [place] [address] | | | | | | [phone] | | | | | | | | +--------+---------+ + + + documented as of this encounter Visit Diagnoses + + | Diagnosis | + + | ESRD (end stage renal disease) (HCC) - Primary End stage renal disease | + + documented in this encounter"
--- OUTSIDE RECORDS SUMMARY | ~2019-03-08 | XMS | Encounter Summary ---
Demographics + + + | Address | [address] | | | [place] [address] | + + + | Home Phone [...] + | Author | [facility] | | | and [place] | + + + | Organization | [facility] | | | and [...] Team Providers + +------+ + | Care Box Person Name | Role | Phone | [...] NEPHROLOGY [address] | M, DO [address] | | | | | [address] | [place], [address] | | | | | [place], [place] | [place], [place] | | | | | [address] | [address] | | | | | [phone] | | | +--------+ + + + [...] [facility], Sudhakar Joy MD at [facility], Doyle Diaz MD (fx: [phone]) on 08/31/15.Electronically signed by Marilyn Palumbo at [...] with an AVF venous stenosis, and had SPECIAL EDUCATION PARAEDUCATOR with an Alysia Castillo last week. Apparently [...] uated for a possible renal allograft at [facility].honestly, given her recent suboptimal compliance with fluid gains, hyperphosphatemia, and missed treatments I think anitha quarles would be at high risk for graft loss from noncompliance? Will attempt to get in touch wit h Dr. Joy, Pediatric Nephrology. 4. Will recheck her in one week. I appreciate Dr. Diaz's help with her recent fistulogram . CC: [place] Fina Joy M.D., Pediatric Nephrology, [facility] Doyle Diaz M.D., IR, [facility] documented in thi s encounter Plan of Treatment +--------+---------+ + + + | Date | Type | Specialty | Care Team | Description | +--------+---------+ + + + | 04/18/ | Office | Pulmonology | Denny Alexander | | | 2020 | Visit | | Deny Briggs MD [address] | | | | | | [address] [place] | | | | | | [place] [address] | | | | | | [phone] | | | | | | | | +--------+---------+ + + + documented as of this encounter Visit Diagnoses + + | Diagnosis | + + | ESRD (end stage renal disease) (HCC) - Primary End stage renal disease | + + documented in this encounter"
--- OUTSIDE RECORDS SUMMARY | ~2019-03-08 | XMS | Encounter Summary ---
Demographics + + + | Address | [address] | | | [place] [address] | + + + | Home Phone [...] | Author | [facility] | | | and Josephana | + + + | Organization | [facility] | [...] Team Providers + +------+ + | Care Market Research Interviewer Name | Role | Phone | + +------+ + PCP | Unavailable | + +------+ + Encounter Details +--------+ + + + + | Date | Type | Department | Care Team | Description | +--------+ + + + + | 05/17/ | Hospital | CC [facility] GENERIC OP | Sudhakar Joy | | | 2010 | Encounter | JOY | MD Emanuel [address] | | | | | [address] | [facility] | | | | [address] | [place], [place] | | | | | [place], [place] | [address] | | | | | [address] | [phone] | | | | | [phone] | | | +--------+ + + + [...] DAV[address]SON | | | | | | [place] [address] | | | | | | [phone] | | | | | | | | +--------+---------+ + + + documented as of this encounter Visit Diagnoses Not on filedocumented in this encounter"
--- OUTSIDE RECORDS SUMMARY | ~2019-03-08 | XMS | Encounter Summary ---
Demographics + + + | Address | [address] | | | [place] [address] | + + + | Home Phone [...] Author | [facility] | | | and Josephana | + + + | Organization | [facility] | [...] + +------+ + | Care Emergency Communications Dispatcher Name | Role | Phone | [...] Fistula | | | | [address] | [place] | Creation | | | | [place] | [place] [address] | | | | | [address] | [phone] | | | | | [phone] | | | +--------+---------+ + + + [...] might be different f rom the original. [facility] POST-OP INSTRUCTIONS: Arterio-Venous Fistula 1. Keep [...] may interact with prescription medicines or other tjvr-fov-ajvagdf (OTC) drugs. The FDA recommends reading OTC medication labels careful ly to clearly understand the list of active ingredients, directions, and any precautions to help avoid taking too muchacetaminophen. If you have questions, ask your pharmacist or a [facility] hospital care provider. Managing Nausea Some people [...] or skin changes (rash, itching, or hives). 0725-[address] [employer] [address] [place] [address], [place] [address]. All righ ts reserved. This information is [...] | | | | | [place] [address] | | | | | | [phone] | | | | | | | [...] mL/min/1.73m2 | [facility] | | | KYRGYZ | (<18). | | MEDICAL | | [...] | [address] | [place] | [phone] | | [facility] | | [address] | | | - LABORATORY | | | | + + + + + | [facility] | [address] | [place], [place] | | | [facility] | | [address] | | | - LABORATORY | | [...]
--- OUTSIDE RECORDS SUMMARY | ~2019-03-08 | XMS | Encounter Summary ---
Demographics + + + | Address | [address] | | | [place] [address] | + + + | Home Phone [...] | | | | | [place] [address] | | + + + + + | Thania Mallory | ECON | [address] | | | | | [place] [address] | | + + + + + | Deidra Weldon | ECON | [address] | | | | | [place] | | | | | [address] | | + + + + + Care Team Providers + +------+ + | Care Film Laboratory Technician Name | Role | Phone | + +------+ + | Jonathan Alonso MD | PCP | | + +------+ + Encounter Details +--------+ + + + + | Date | Type | Department | Care Team | Description | +--------+ + + + + | 01/20/ | Hospital | Radiology at [facility] | | | | 2014 | Encounter | [address] | | | | | | Mailcode: [id number] | | | | | | [place] | | | | | | [place], [place] | | | | | | [address] | | | | | | [phone] | | | +--------+ + + + [...] Correarobina | | | | | | [place], [place] | | | | | | [address] | | | | | | [phone] | | | | | | | [...] | + +---------+ + + | [facility] DEPARTMENT OF | | | | [...]
--- OUTSIDE RECORDS SUMMARY | ~2019-03-08 | XMS | Encounter Summary ---
Demographics + + + | Address | [address] | | | [place] [address] | + + + | Home Phone [...] | | | | | [place] [address] | | + + + + + | Thania Mallory | ECON | [address] | | | | | [place] [address] | | + + + + + | Deidra Weldon | ECON | [address] | | | | | [place] | | | | | [address] | | + + + + + Care Team Providers + +------+ + | Care Electric Wirer Name | Role | Phone | + +------+ + | Shahid Camargo MD | PCP | | + +------+ + Encounter Details +--------+------+ + + + | Date | Type | Department | Care Team | Description | +--------+------+ + + + | 12/20/ | Lab | Lab Center at [facility] | | Allergic purpura- | | 2012 | | 7th Floor [address] | | MEDICARE [address] | | | | [address] [place], | | (Primary Dx) | | | | [place] [address] | | | | | | [phone] | | | +--------+------+ + + + [...] Denise | | | | | | [place], [place] | | | | | | [address] | | | | | | [phone] | | | | | | | [...] - | [address] | [place], [place] | | | IMMUNOGENETICS/TRANS | Suite [...] - | [address] | [place], [place] | | | IMMUNOGENETICS/TRANS | Suite [...] | [facility] - | [address] | [place] [address] | | | IMMUNOGENETICS/TRANS | [address] [...] [facility] - | [address] | [place] [address] | | | IMMUNOGENETICS/TRANS | [address] [...] [facility] - | [address] | [place] [address] | | | IMMUNOGENETICS/TRANS | [address] [...] - | [address] | [place], [place] | | | IMMUNOGENETICS/TRANS | Suite [...] - | [address] | [place], [place] | | | IMMUNOGENETICS/TRANS | Suite [...] [facility] - | [address] | [place] [address] | | | IMMUNOGENETICS/TRANS | [address] [...] + + | [facility] - | [address] | [place] [address] | | | IMMUNOGENETICS/TRANS | [address] [...] | + + + + + | [facility] | [address] | [place] [address] | | | SERVICES, | [address] [...] [facility] | [address] | [place] [address] | | | SERVICES, | [address] [...] | + + + + + | [facility] | [address] | [place] [address] | | | SERVICES, CORE | PARK [...] UNIV | | | | Pippa Sauceda, [facility] | | PTH - INTFC | | | | [address] | | | | | | [phone]. | | | | | | Faisal [...] [facility] | [address] | [place], [place] | | | UNIV PTH - INTFC | | [address] | | + + + + + [...] | 07/25/2012. | LABORATORY | | | SERVICESHOMERO | + + + + + + + + | Performing | Address | City/State/Zipcode | Phone Number | | Organization | | | | + + + + + | [facility] | [address] | [place] [address] | | | SERVICES, HOMERO | PARK [...] | + + + + + | [facility] | [address] | [place] [address] | | | SERVICES, CORE | LONG [...] + | [facility] - | [address] | [place] [address] | | | [place] | | | [...] [facility] | [address] | [place] [address] | | | SERVICES, CORE | PARK [...] [facility] | [address] | [place] [address] | | | SERVICES, CORE | PARK [...] | + + + + + | [facility] | [address] | [place] [address] | | | SERVICES, CORE | PARK [...] + | [facility] - | [address] | [place] [address] | | | [place] | | | [...] at: | | | | | | http://www.cdc.gov/nchstp/tb/pubs/tbfactssheets/557305.htm | | | Test performed by: [facility] [address] [place] [address] | | + + + + + [...] [facility] | [address] | [place] [address] | | | SERVICES, SPECIAL | PARK [...] gene at | DIAGNOSTIC | | nucleotide 14584. Please note that this assay only detects the | LABORATORIES | | [id number] point mutation and therefore a normal result [...] has been analyzed for the presence of [id number] | | | mutation in the prothrombin [...] | | Heterozygotes for the common prothrombin P11837L mutation constitute | | | approximately 2% of the normal white population (1,2). | | | References: 1.) Poort et al. Blood 88, 1493-3147 (1996). 2.) Ricardo | | | et al. Circulation 99, 999-1004 (1998). 3.) Al Montalvo, and | | | Press. Amer J Clin Path 155, 439-47 (2000). This test was | | | developed and its performance characteristics determined by the [facility] | | | [facility]. It has | | | not been cleared or approved by the Food and Drug Administration. | | | FDA approval is not required for clinical use of this test, and | | | therefore validation was done as required under the requirements of | | | the Clinical Laboratory Improvement Act of 1988. The [facility] | | | Diagnostic Laboratories [facility] is a fully | | | licensed and/or accredited clinical laboratory under CLIA, CAP, and | | | the [facility]. Please note that our lab now [...] + + | Performing | Address | City/State/[facility] Centercode | Phone Number | | Organization | | | | + + + + + | [facility] | [address] | [place] [address] | | | DIAGNOSTIC | [address] [...] [facility] | [address] | [place] [address] | | | SERVICES, CORE | PARK [...] | + + + + + | [facility] | [address] | [place] [address] | | | SERVICES, CORE | LONG [...] | + + + + + | [facility] | [address] | [place] [address] | | | SERVICES, CORE | PARK [...] + + + + | [facility] | [address] | [place] [address] | | | SERVICES, HOMERO | LONG [...] | | | | | | Laboratories,[address] [facility] [facility] | | | | | | Rajendra, [facility] [place] [address] | | | | | | [phone]. | | | | | | Faisal [...] [facility] | [address] | [place], [place] | | | UNIV PTH - INTFC | | [address] | | + + + + + [...] + + + + | [facility] | [address] | [place] [address] | | | SERVICES, SPECIAL | PARK [...] C PCR, | Undetected | IU/mL | [facility] | | | QUANT | | | [...] + + + + | [facility] | [address], | [place] [address] | | | DIAGNOSTIC | [address] [...] + | [facility] - | [address] | [place] [address] | | | [place] | | | [...] + | [facility] - | [address] | [place] [address] | | | [place] | | | [...] + | [facility] - | [address] | [place] [address] | | | [place] | | | [...] + | [facility] - | [address] | [place] [address] | | | [facility] | | | | + + + [...] less......Not | | | | | | Owwjcsfy98.0-21.9 | | | | | | U/mL.........Indetermina [...] available | | | | | | [email or web address] | | | | | | vdx.Performed by [facility] | | | | | | Laboratories,[address] [facility] | | | | | | Rajendra [facility] [place] [address] | | | | | | [phone]. | | | | | | Faisal [...] [facility] | [address] | [place], [place] | | | UNIV PTH - INTFC | | [address] | | + + + + + [...] | | | Final CULTURE | | [facility] | | | | RESULT:No growth (<1000 [...] + | [facility] - | [address] | [place] [address] | | | [place] | | | | + + + [...] + + + + | [facility] | [address] | [place] [address] | | | SERVICES, CORE | PARK [...] by | | | | | | [employer],[address] | | | | | | Pippa Sauceda, [facility] | | | | | | [address] | | | | | | [phone]. 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
--- OUTSIDE RECORDS SUMMARY | ~2019-03-08 | XMS | Encounter Summary ---
Demographics + + + | Address | [address] | | | [place] [address] | + + + | Home Phone [...] [facility] | | | and Josephana | + + + | Organization | [facility] [...] Team Providers + +------+ + | Care Lumber Hacker Name | Role | Phone | + [...] | | stage renal | [address] | [address] [place] [address] | | | | | disease) | Shun Griffin | [place] | | | | | ([facility]) | [address] | [address] [place] | | | | | Anemia in | [place], [place] | [place] | | | | | ESRD | [address] | [address] Phone: | | | | | (end-stage | Phone: | [phone] | | | | | renal | [phone] | Fax: | | | | | disease) | Fax: | [phone] | | | | | ([facility]) | [phone] | | | | | | Procedures | | | | | | | [place] OFFICE | | | | | | [...] DO [address] | renal disease) ([facility]) | | | | [address] | [place], [address] | (Primary Dx); | | | | [place], [place] | [place], [place] | Secondary | | | | [address] | [address] | hyperparathyroidism | | | | [phone] | | ([facility]) | +--------+ + + + + [...] still 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 Outpatient Prescriptions Marked as Taking for the [...] treatment will eventually subtract f rom her snf survival. I think that basically she needs [...] [address] | | | | | | [place] [address] | | | | | | [phone] | | | | | | | [...]
--- OUTSIDE RECORDS SUMMARY | ~2019-03-08 | XMS | Encounter Summary ---
Demographics + + + | Address | [address] | | | [place] [address] | + + + | Home Phone [...] | | | | | [place] [address] | | + + + + + | Thania Mallory | ECON | [address] | | | | | [place] [address] | | + + + + + | Deidra Weldon | ECON | [address] | | | | | [place] | | | | | [address] | | + + + + + Care Team Providers + +------+ + | Care Loss Control Engineer Name | Role | Phone | [...] | | | | | [address], | [place], [place] | | | | | [place] [address] | [address] | | | | | [phone] | | | +--------+ + + + [...] [place] | | | | | | [address] | | | | | | [phone] | | | | | | | | +--------+ + + + + documented as of this encounter Visit Diagnoses Not on filedocumented in this encounter"
--- OUTSIDE RECORDS SUMMARY | ~2019-03-08 | XMS | Encounter Summary ---
Demographics + + + | Address | [address] | | | [place] [address] | + + + | Home Phone [...] Author | [facility] | | | and [place]ana | + + + | Organization | [facility] | [...] Providers + +------+ + | Care Talent Engineer Name | Role | Phone | + +------+ + PCP | Unavailable | + +------+ + Encounter Details +--------+ + + + + | Date | Type | Department | Care Team | Description | +--------+ + + + + | 07/31/ | Hospital | [facility] MEDICAL | Conversion | ESRD (end stage | | 2015 | Encounter | CENTER CV INTRA OP | Transaction, | renal disease) (HCC) | | | | [address] | Provider Unknown | | | | | [place], [place] | [phone] | | | | | [address] | | | | | | [phone] | Colten Hutchins MD | | | | | | [address] | | | | | | [place], [place] | | | | | | [address] | | | | | | | [...] 07/31/141620 Date of Service: 07/31/141619 Status: Signed Scallop Binder: Mervat Harden RN (Registered Nurse) Pt meets d/c criteria. Site c/d/i and soft. Mother providing transportation home. Mervat Harden RN onver arturo Transaction, Provider Unknown - 07/31/2014 3:52 PM PDT Progress Notes by Mervat Harden RN at 07/31/141551 Author: Mervat Harden RN Service: (none) Author Type: Registered Nurse Filed: 07/31/14 7618 Date of Service: 07/31/141551 Status: Signed Scallop Binder: Mervat Harden RN (Registered Nurse) Pt tolerated [...] [address] | | | | | | [place] [address] | | | | | | [phone] | | | | | | | [...] this | | | patient in the [facility] holding area. I had a discussion with [...] met this patient | | in the [place] holding area. I had a discussion with [...]
--- OUTSIDE RECORDS SUMMARY | ~2019-03-08 | XMS | Encounter Summary ---
Demographics + + + | Address | [address] | | | [place] [address] | + + + | Home Phone [...] | Author | [facility] | | | and [place]ana | + + + | Organization | [facility] [...] Team Providers + +------+ + | Care Steeple Jack Name | Role | Phone | + +------+ + PCP | Unavailable | + +------+ + Encounter Details +--------+ + + + + | Date | Type | Department | Care Team | Description | +--------+ + + + + | 12/26/ | Orders Only | [facility]O DILL | Jorje Camp | | | 2016 | | NEPHROLOGY [address] | M, DO [address] | | | | | [address] | [place], [address] | | | | | [place], [place] | [place], [place] | | | | | [address] | [address] | | | | | [phone] | | | +--------+ + + + [...] 04/18/ | Office | Pulmonology | Denny Alexanedr | | | 2019 | Visit | | Deny Briggs MD [address] | | | | | | [address] [place] | | | | | | [place] [address] | | | | | | [phone] | | | | | | | | +--------+---------+ + + + documented as of this encounter Visit Diagnoses Not on filedocumented in this encounter"
--- OUTSIDE RECORDS SUMMARY | ~2019-03-08 | XMS | Encounter Summary ---
Demographics + + + | Address | [address] | | | [place] [address] | + + + | Home Phone [...] | | | | | [place] [address] | | + + + + + | Thania Mallory | ECON | [address] | | | | | [place] [address] | | + + + + + | Deidra Weldon | ECON | [address] | | | | | [place] | | | | | [address] | | + + + + + Care Team Providers + +------+ + | Care Senior Energy Trader Name | Role | Phone | + [...] Rd | | | | | | [place], [place] | | | | | | [address] | | | +--------+ + + + [...] Denise | | | | | | [place], [place] | | | | | | [address] | | | | | | [phone] | | | | | | | | +--------+ + + + + documented as of this encounter Visit Diagnoses Not [facility]"
--- OUTSIDE RECORDS SUMMARY | ~2019-03-08 | XMS | Encounter Summary ---
Demographics + + + | Address | [address] | | | [place] [address] | + + + | Home Phone [...] | | | | | [place] [address] | | + + + + + | Thania Mallory | ECON | [address] | | | | | [place] [address] | | + + + + + | Deidra Weldon | ECON | [address] | | | | | [place] | | | | | [address] | | + + + + + Care Team Providers + +------+ + | Care Glove Pairer Name | Role | Phone | [...] ([facility]) | Shun Griffin | Mailcode: | | | | | Procedures | [address] | D[facility] | | | | | TRANSTHORACI | [place], [place] | [address] | | | | | C | [address] | [place], [place] | | | | | ECHOCARDIOGR | Phone: | [address] | | | | | AM, PEDS | [phone] | Phone: | | | | | | Fax: | [phone] | | | | | | [phone] | Fax: | | | | | | | [phone] | +--------+--------+ + + + + Reason [...] | | conchita | [address] | [facility] | | | | | (HCC) | Shun Griffin | Mailcode: | | | | | Procedures | Caro Chan | D[facility] | | | | | TRANSTHORACI | [place], [place] | [address] | | | | | C | [address] | [place], [place] | | | | | ECHOCARDIOGR | Phone: | [phone] | | | | | AMKAJALS | [phone] | Phone: | | | | | | Fax: | [phone] | | | | | | [phone] | Fax: | | | | | | | [phone] | +--------+--------+ + + + + Encounter Details +--------+ + + + + | Date | Type | Department | Care Team | Description | +--------+ + + + + | 12/20/ | Hospital | Pediatric Echo Lab | | | | 2012 | Encounter | at [facility] [address] | | | | | | [place] Mailcode: | | | | | | [address] | | | | | | [place], [place] | | | | | | [address] | | | | | | [phone] | | | +--------+ + + + [...] Denise | | | | | | [place], [place] | | | | | | [address] | | | | | | [phone] | | | | | | | [...]
--- OUTSIDE RECORDS SUMMARY | ~2019-03-08 | XMS | Encounter Summary ---
Demographics + + + | Address | [address] | | | [place] [address] | + + + | Home Phone [...] | [facility] | | | and [place] | + + + | Organization | [facility] | | [...] Team Providers + +------+ + | Care Pilot Plant Operator Helper Name | Role | Phone | [...] NEPHROLOGY [address] | M, DO [address] | | | | | [address] | [place], [address] | | | | | [place], [place] | [place], [place] | | | | | [address] | [address] | | | | | [phone] | | | +--------+ + + + [...] repeatedly declines. The entire dialysis team including mastic worker have had mult iple conversations with [...] attempt to continue to make efforts to alcoholic counselor her about lifestyle modification an d [...] DAV[address]SON | | | | | | [place] [address] | | | | | | [phone] | | | | | | | | +--------+---------+ + + + documented as of this encounter Visit Diagnoses Not on filedocumented in this encounter"
--- OUTSIDE RECORDS SUMMARY | ~2019-03-08 | XMS | Encounter Summary ---
Demographics + + + | Address | [address] | | | [place] [address] | + + + | Home Phone [...] | | | | | [place] [address] | | + + + + + | Thania Mallory | ECON | [address] | | | | | [place] [address] | | + + + + + | Deidra Weldon | ECON | [address] | | | | | [place] | | | | | [address] | | + + + + + Care Team Providers + +------+ + | Care Health Inspector Name | Role | Phone | + +------+ + | Shahid Camargo MD | PCP | | + +------+ + Reason for Visit +--------+ + | Reason | Comments | +--------+ + | Other | Requested [id number] | +--------+ + Encounter Details +--------+ + + + + | Date | Type | Department | Care Team | Description | +--------+ + + + + | 11/15/ | Telephone | Clinical | Jesus Edmond, | Other (Requested | | 2012 | | Transplant Services | [address] | [id number]) | | | | [address] | [facility] | | | | | [address] [place], | [place], [place] | | | | | [place] [address] | [address] | | | | | [phone] | [phone] | | | | | | | [...] Denise | | | | | | [place], [place] | | | | | | [address] | | | | | | [phone] | | | | | | | | +--------+ + + + + documented as of this encounter Visit Diagnoses Not on filedocumented in this encounter"
--- OUTSIDE RECORDS SUMMARY | ~2019-03-08 | XMS | Encounter Summary ---
Demographics + + + | Address | [address] | | | [place] [address] | + + + | Home Phone [...] | | | | | [place] [address] | | + + + + + | Thania Mallory | ECON | [address] | | | | | [place] [address] | | + + + + + | Deidra Weldon | ECON | [address] | | | | | [place] | | | | | [address] | | + + + + + Care Team Providers + +------+ + | Care Fur Blower Name | Role | Phone | + [...] | | | [address] | [facility] | | | | | [address] [facility], | [place], [place] | | | | | [place] [address] | [address] | | | | | [phone] | | | +--------+ + + + [...] Denise | | | | | | [place], [place] | | | | | | [address] | | | | | | [phone] | | | | | | | | +--------+ + + + + documented as of this encounter Visit Diagnoses Not on filedocumented in this encounter"
--- OUTSIDE RECORDS SUMMARY | ~2019-03-08 | XMS | Encounter Summary ---
Demographics + + + | Address | [address] | | | [place] [address] | + + + | Home Phone [...] Author | [facility] | | | and Josephana | + + + | Organization | [facility] | [...] Providers + +------+ + | Care On Call Pharmacy Technician Name | Role | Phone | + +------+ + PCP | Unavailable | + +------+ + Reason for Visit + + + | Reason | Comments | + + + | Medication Orders | | + + + Encounter Details +--------+ + + + + | Date | Type | Department | Care Team | Description | +--------+ + + + + | 01/13/ | Telephone | [facility] [place] | Daniela Ibarra W, | Medication Orders | | 2017 | | NEPHROLOGY [address] | [address] | | | | | [address] | [address] [place] | | | | | [place], [place] | [place] [address] | | | | | [address] | [phone] | | | | | [phone] | | | +--------+ + + + [...] | | | | | [place] [address] | | | | | | [phone] | | | | | | | | +--------+---------+ + + + documented as of this encounter Visit Diagnoses Not on filedocumented in this encounter"
--- OUTSIDE RECORDS SUMMARY | ~2019-03-08 | XMS | Encounter Summary ---
Demographics + + + | Address | [address] | | | [place] [address] | + + + | Home Phone [...] | | | | | [place] [address] | | + + + + + | Thania Mallory | ECON | [address] | | | | | [place] [address] | | + + + + + | Deidra Weldon | ECON | [address] | | | | | [place] | | | | | [address] | | + + + + + Care Team Providers + +------+ + | Care Retail Support Specialist Name | Role | Phone [...] | | [address] | [facility] | | | | | Caro [facility], | [place], [place] | | | | | [place] [address] | [address] | | | | | [phone] | | | +--------+ + + + [...] Denise | | | | | | [place] | | | | | | [address] | | | | | | [phone] | | | | | | | | +--------+ + + + + documented as of this encounter Visit Diagnoses Not on filedocumented in this encounter"
--- OUTSIDE RECORDS SUMMARY | ~2019-03-08 | XMS | Encounter Summary ---
Demographics + + + | Address | [address] | | | [place] [address] | + + + | Home Phone [...] | | | | | [place] [address] | | + + + + + | Thania Mallory | ECON | [address] | | | | | [place] [address] | | + + + + + | Deidra Weldon | ECON | [address] | | | | | [place] | | | | | [address] | | + + + + + Care Team Providers + +------+ + | Care Soap Chipper Name | Role | Phone | + +------+ + | hSahid Camargo MD | PCP | | + +------+ + Encounter Details +--------+ + + + + | Date | Type | Department | Care Team | Description | +--------+ + + + + | 12/19/ | Document-Sc | UNKNOWN DEPARTMENT | Unknown . | | | 2012 | anned | [address] [facility] | | | | | | [facility] | | | | | | [place], [place] | | | | | | [address] | | | +--------+ + + + [...] Denise | | | | | | [place], [place] | | | | | | [address] | | | | | | [phone] | | | | | | | | +--------+ + + + + documented as of this encounter Visit Diagnoses Not on filedocumented in this encounter"
--- OUTSIDE RECORDS SUMMARY | ~2019-03-08 | XMS | Encounter Summary ---
Demographics + + + | Address | [address] | | | [place] [address] | + + + | Home Phone [...] [facility] | | | and Josephana | + + + | Organization | [facility] [...] Team Providers + +------+ + | Care Coil Binder Name | Role | Phone | + +------+ + PCP | Unavailable | + +------+ + Encounter Details +--------+ + + + + | Date | Type | Department | Care Team | Description | +--------+ + + + + | 07/10/ | Hospital | CC [facility] GENERIC OP | Sudhakar Joy | | | 2009 | Encounter | JOY | MD Emanuel [address] | | | | | [address]PART[address] | [facility] | | | | | [address] | [place], [place] | | | | | [place] | [address] | | | | | [address] | [phone] | | | | | [phone] | | | +--------+ + + + [...] | | | | | | [place] [address] | | | | | | [phone] | | | | | | | | +--------+---------+ + + + documented as of this encounter Visit Diagnoses Not on filedocumented in this encounter"
--- OUTSIDE RECORDS SUMMARY | ~2019-03-08 | XMS | Encounter Summary ---
Demographics + + + | Address | [address] | | | [place] [address] | + + + | Home Phone [...] | | | | | [place] [address] | | + + + + + | Thania Mallory | ECON | [address] | | | | | [place] [address] | | + + + + + | Deidra Weldon | ECON | [address] | | | | | [place] | | | | | [address] | | + + + + + Care Team Providers + +------+ + | Care Roller Maker Name | Role | Phone | [...] | Nephrology at | MD Emanuel [address] [facility] | Recommendations | | | | Alexander | Elias Caro | | | | | [facility] | [place], [place] | | | | | [address] | [address] | | | | | Mailcode: DCH7 | [phone] | | | | | Alexander | | | | | | [place], [place] | | | | | | [address] | | | | | | [phone] | | | +--------+ + + + [...] Denise | | | | | | [place] | | | | | | [address] | | | | | | [phone] | | | | | | | | +--------+ + + + + documented as of this encounter Visit Diagnoses Not on filedocumented in this encounter"
--- OUTSIDE RECORDS SUMMARY | ~2019-03-08 | XMS | Encounter Summary ---
Demographics + + + | Address | [address] | | | [place] [address] | + + + | Home Phone [...] | | | | | [place] [address] | | + + + + + | Thania Mallory | ECON | [address] | | | | | [place] [address] | | + + + + + | Deidra Weldon | ECON | [address] | | | | | [place] | | | | | [address] | | + + + + + Care Team Providers + +------+ + | Care Bulk Plant Supervisor Name | Role | Phone [...] Shun | | | | | [address] [facility] [address] | [facility] | | | | | [place], [place] | [place] [address] | | | | | [address] | [phone] | | | | | | | [...] from patient and her family Pharmacy Preferences: [id number] [address] [place] [address] Updated Outpatient Medications: Current Medication List Name [...] questions regarding this information contact pharmacy, pager #[phone] Thank you, Juan David Batres Pager [phone] signed by Juan David Batres PharmEmanuel at [...] Denise | | | | | | [place] | | | | | | [address] | | | | | | [phone] | | | | | | | | +--------+ + + + + documented as of this encounter Visit Diagnoses Not on filedocumented in this encounter"
--- OUTSIDE RECORDS SUMMARY | ~2019-03-08 | XMS | Encounter Summary ---
Demographics + + + | Address | [address] | | | [place] [address] | + + + | Home Phone [...] | Author | [facility] | | | and Josephana | + + + | Organization | [facility] [...] Providers + +------+ + | Care Supervisor Gluing Name | Role | Phone | + [...] | | [address] | [place] | | | | | [place], [place] | [place], [place] | | | | | [address] | [address] | | | | | [phone] | | | +--------+--------+ + + + [...] DAV[place]SON | | | | | | [place] [address] | | | | | | [phone] | | | | | | | | +--------+---------+ + + + documented as of this encounter Visit Diagnoses Not on filedocumented in this encounter"
--- OUTSIDE RECORDS SUMMARY | ~2019-03-08 | XMS | Encounter Summary ---
Demographics + + + | Address | [address] | | | [place] [address] | + + + | Home Phone [...] | | | | | [place] [address] | | + + + + + | Thania Mallory | ECON | [address] | | | | | [place] [address] | | + + + + + | Deidra Weldon | ECON | [address] | | | | | [place] | | | | | [address] | | + + + + + Care Team Providers + +------+ + | Care Car Rental Sales Assistant Name | Role | Phone | [...] [address] | | | | | ([facility]) | Shun Griffin | Mailcode: | | | | | Procedures | Caro Chan | DCH8S | | | | | TRANSTHORACI | [place], [place] | [place] | | | | | C | [address] | [place], [place] | | | | | ECHOCARDIOGR | Phone: | [phone] | | | | | AM, PEDS | [phone] | Phone: | | | | | | Fax: | [phone] | | | | | | [phone] | Fax: | | | | | | | [phone] | +--------+--------+ + + + + Reason [...] | | conchita | [address] | [facility] | | | | | (HCC) | Shun Griffin | Mailcode: | | | | | Procedures | Caro Chan | D[facility]8S | | | | | TRANSTHORACI | [place], [place] | [place] | | | | | C | [address] | [place], [place] | | | | | ECHOCARDIOGR | Phone: | [address] | | | | | AMKAJALS | [phone] | Phone: | | | | | | Fax: | [phone] | | | | | | [phone] | Fax: | | | | | | | [phone] | +--------+--------+ + + + + Encounter Details +--------+ + + + + | Date | Type | Department | Care Team | Description | +--------+ + + + + | 12/20/ | Hospital | Pediatric Echo Lab | | | | 2012 | Encounter | at [facility] [address] | | | | | | [place] Mailcode: | | | | | | [address] [place] | | | | | | [place], [place] | | | | | | [address] | | | | | | [phone] | | | +--------+ + + + [...] Denise | | | | | | [place], [place] | | | | | | [address] | | | | | | [phone] | | | | | | | [...]
--- OUTSIDE RECORDS SUMMARY | ~2019-03-08 | XMS | Encounter Summary ---
Demographics + + + | Address | [address] | | | [place] [address] | + + + | Home Phone [...] | Author | [facility] | | | and Josephana | + + + | Organization | [facility] | [...] Team Providers + +------+ + | Care Comparative Sociology Professor Name | Role | Phone | + +------+ + PCP | Unavailable | + +------+ + Encounter Details +--------+ + + + + | Date | Type | Department | Care Team | Description | +--------+ + + + + | 10/31/ | Hospital | [facility] | Conversion | ESRD (end stage | | 2015 | Encounter | CENTER CV INTRA OP | Transaction, | renal disease) on | | | | [address] | Provider Unknown | dialysis ([facility]) | | | | [place], [place] | [phone] | | | | | [address] | | | | | | [phone] | Colten Hutchins MD | | | | | | [address] | | | | | | [place], [place] | | | | | | [address] | | | | | | | [...] Note by Bev Carroll RN at 10/31/14 391 Author: Bev Carroll RN Service: Interventional Radiology Author Type: Registered Chantell e Filed: 10/31/14 4611 Date of Service: 10/31/141734 Status: Signed Medical Office Secretary: Bev Carroll RN (Registered Nurse) Sutures removed [...] Note by Bev Carroll RN at 10/31/14 7146 Author: Bev Carroll, RN Service: Interventional Radiology Author Type: Registered Chantell rse Filed: 10/31/141649 Date of Service: 10/31/141649 Status: Signed Medical Office Secretary: Bev Carroll RN (Registered Nurse) Attempted removal [...] DAV[place] | | | | | | [place] [address] | | | | | | [phone] | | | | | | | [...] | | yesterday COMPARISON STUDIES: 10/28/2014 PRIMARY THERAPEUTIC CONSULTANT: | | | Colten Hutchins MD, PhD, [facility] OPERATIONS: 1. Ultrasound-guided | | | antegrade [...] | microsheath were both exchanged for 6 Dominican sheaths. A catheter was | | | [...] yesterday | | COMPARISON STUDIES: 10/28/2014 PRIMARY THERAPEUTIC CONSULTANT: Colten Hutchins MD, PhD, RPVI | | [...] were both exchanged for 6 | | Dominican sheaths. A catheter was advanced over a [...] | | yesterday COMPARISON STUDIES: 10/28/2014 PRIMARY THERAPEUTIC CONSULTANT: | | | Colten Hutchins MD, PhD, [facility] OPERATIONS: 1. Ultrasound-guided | | | antegrade [...] | microsheath were both exchanged for 6 Dominican sheaths. A catheter was | | | [...] yesterday | | COMPARISON STUDIES: 10/28/2014 PRIMARY THERAPEUTIC CONSULTANT: Colten Hutchins MD, PhD, RPVI | | [...] were both exchanged for 6 | | Dominican sheaths. A catheter was advanced over a [...] | | yesterday COMPARISON STUDIES: 10/28/2014 PRIMARY THERAPEUTIC CONSULTANT: | | | Colten Hutchins MD, PhD, [facility] OPERATIONS: 1. Ultrasound-guided | | | antegrade [...] | microsheath were both exchanged for 6 Dominican sheaths. A catheter was | | | [...] yesterday | | COMPARISON STUDIES: 10/28/2014 PRIMARY THERAPEUTIC CONSULTANT: Colten Hutchins MD, PhD, RPVI | | [...] were both exchanged for 6 | | Dominican sheaths. A catheter was advanced over a [...] | | yesterday COMPARISON STUDIES: 10/28/2014 PRIMARY THERAPEUTIC CONSULTANT: | | | Colten Hutchins MD, PhD, [facility] OPERATIONS: 1. Ultrasound-guided | | | antegrade [...] | microsheath were both exchanged for 6 Dominican sheaths. A catheter was | | | [...] yesterday | | COMPARISON STUDIES: 10/28/2014 PRIMARY THERAPEUTIC CONSULTANT: Colten Hutchins MD, PhD, RPVI | | [...] were both exchanged for 6 | | Dominican sheaths. A catheter was advanced over a [...] Note | + + | Cedric Sonido Andesron - 10/19/2018 6:38 AM PDT This Point [...]
--- OUTSIDE RECORDS SUMMARY | ~2019-03-08 | XMS | Encounter Summary ---
Demographics + + + | Address | [address] | | | [place] [address] | + + + | Home Phone [...] | Author | [facility] | | | and Josephana | + + + | Organization | [facility] [...] Providers + +------+ + | Care Sales Marketing Name | Role | Phone | + [...] | | | | [address] | [place], [place] | [place], [place] | | | | | stage renal | [address] | [address] Phone: | | | | | disease | Phone: | [phone] | | | | | ([facility]) | [phone] | Fax: | | | | | Infection | Fax: | [phone] | | | | | and | [phone] | | | | | | inflammatory [...] | 10/28/ | Off-Site | [facility] [place] | Jorje Camp | Anemia in ESRD | | 2014 | Visit | NEPHROLOGY [address] | M, DO [address] | (end-stage renal | | | | [address] | [place] | disease) ([facility]) | | | | [place] | [place] | (Primary Dx); ESRD | | | | [address] | [address] | (end stage renal | | | | [phone] | | disease) ([facility]) | +--------+ + + + + Social [...] matriculating well through her senior year of [employer] and enjoys her school. Outpatient Prescriptions Marked as Taking for the 10/28/13 encounter (Off-Site Visit) with Camille Camp, DO Medication Sig Dispense Refill cholecalciferol (VITAMIN D-3) 1,000 units tablet Take 1,000 Units by mouth Daily. cinacalcet (SENSIPAR) 30 mg tablet Take 30 mg by mouth Daily. [DISCONTINUED] Doxercalciferol (HECTOROL IV) Inject 1 mcg into the vein Three times a w [place]. Epoetin Andres (EPOGEN IJ) 4,400 Units [...] excellent candidate for a renal allograft. CC: [facility], [facility] documented in thi s encounter Plan of Treatment +--------+---------+ + + + | Date | Type | Specialty | Care Team | Description | +--------+---------+ + + + | 04/18/ | Office | Pulmonology | Denny Alexander | | | 2019 | Visit | | Deny Briggs MD [address] | | | | | | [address] | | | | | | [place] [address] | | | | | | [phone] | | | | | | | [...]
--- OUTSIDE RECORDS SUMMARY | ~2019-03-08 | XMS | Encounter Summary ---
Demographics + + + | Address | [address] | | | [place] [address] | + + + | Home Phone [...] | | | | | [place] [address] | | + + + + + | Thania Mallory | ECON | [address] | | | | | [place] [address] | | + + + + + | Deidra Weldon | ECON | [address] | | | | | [place] | | | | | [address] | | + + + + + Care Team Providers + +------+ + | Care Procurement Technician Name | Role | Phone | + +------+ + | Jonathan Alonso MD | PCP | | + +------+ + Encounter Details +--------+------+ + + + | Date | Type | Department | Care Team | Description | +--------+------+ + + + | 01/20/ | Lab | Lab Center at [facility] | | 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 [address] | | MEDICARE 2578; [facility] | | | | [address] [place], | | ([place] | | | | [place] [address]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; | | | | [phone] | | Hemodialysis status | | | [...] Denise | | | | | | [place], [place] | | | | | | [address] | | | | | | [phone] | | | | | | | [...] | e | 9:59 AM | MEDICARE 4085 [facility] | procedure are in the | [...] | | | | | ([facility]) Chronic | | | | [...] the | | | | PST | ([facility] | results section. | | |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 | | | | | | Hemodialysis status | | | | | | ([facility]) Chronic | | | | [...] the | | | | PST | ([facility] | results section. | | | [...] the | | | | PST | ([facility] | results section. | | | | [...] the | | | | PST | ([facility] | results section. | | | [...] the | | | | PST | ([facility] | results section. | | | | [...] the | | | | PST | ([facility] | results section. | | | | [...] the | | | | PST | ([facility] | results section. | | | | [...] the | | | | PST | ([facility] | results section. | | | | [...] the | | | | PST | ([facility] | results section. | | | | [...] the | | | | PST | ([facility] | results section. | | | | [...] | + + + + + | [facility] - | [address] | [place] [address] | | | [place] | | | | + + + [...] [facility] | [address] | [place] [address] | | | SERVICES, CORE | PARK [...] [facility] | [address] | [place] [address] | | | SERVICES, SPECIAL | PARK [...] + + | [facility] | [address] | [place] [address] | | | DIAGNOSTIC | [address] [...] + | [facility] - | [address] | [place], [place] [address] | | | [place] | | | | + + + [...] + | [facility] - | [address] | [place] [address] | | | [place] | | | | + + + [...] + + + + | [facility] | [address] | [place] [address] | | | [place] | | | [...] + | [facility] - | [address] | [place] [address] | | | [place] | | | [...] by | | | | | | [employer],[address] | | | | | | Pippa [place], [facility],[place] | | | | | | [address] | | | | | | [phone].[email or web address]. | | | | | | Faisal mantilla, | | | | | | Jenny ALMEIDA. Director | | | | + + + + + + + + | Specimen | + + | Blood - Blood | + + + + + + + | Performing | Address | City/State[facility] | Phone Number | | Organization | | | | + + + + + | [facility] | [address] | [place], [place] | | | UNIV PTH - INT[facility] | | [address] | | + + + + + [...] | + + + + + | [facility] - | [address] | [place] [address] | | | [place] | | | | + + + [...] by | | | | | | [facility],[address] | | | | | | [place] | | | | | | [address] | | | | | | [phone]. | | | | | | Faisal [...] REG | [address] | [place], [place] | | | UN[facility] | | [address] | | + + + + + [...] [facility] | [address] | [place] [address] | | | SERVICES, CORE | PARK [...] | + + + + + | [facility] | [address] | [place] [address] | | | SERVICES, CORE | LONG [...] [facility] | [address] | [place] [address] | | | SERVICES, CORE | PARK [...] [facility] | [address] | [place] [address] | | | SERVICES, CORE | PARK [...] + + + | [facility] | [address] | [place] [address] | | | SERVICES, HOMERO | LONG [...] | | | LABORATORY | | | PUERTO RICAN | | | SERVICES, | | [...] + + + + + | [facility] | [address] | [place] [address] | | | SERVICES, CORE | PARK [...]
--- OUTSIDE RECORDS SUMMARY | ~2019-03-08 | XMS | Encounter Summary ---
Demographics + + + | Address | [address] | | | [place] [address] | + + + | Home Phone [...] | | | | | [place] [address] | | + + + + + | Thania Mallory | ECON | [address] | | | | | [place] [address] | | + + + + + | Deidra Weldon | ECON | [address] | | | | | [place] | | | | | [address] | | + + + + + Care Team Providers + +------+ + | Care Family Service Aide Name | Role | Phone [...] | | | [address] | [facility] | | | | | [place], | [place], [place] | | | | | [place] [address] | [address] | | | | | [phone] | | | +--------+ + + + [...] Denise | | | | | | [place], [place] | | | | | | [address] | | | | | | [phone] | | | | | | | | +--------+ + + + + documented as of this encounter Visit Diagnoses + + | Diagnosis | + + | 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
--- OUTSIDE RECORDS SUMMARY | ~2019-03-08 | XMS | Encounter Summary ---
Demographics + + + | Address | [address] | | | [place] [address] | + + + | Home Phone [...] | | | | | [place] [address] | | + + + + + | Thania Mallory | ECON | [address] | | | | | [place] [address] | | + + + + + | Deidra Weldon | ECON | [address] | | | | | [place] | | | | | [address] | | + + + + + Care Team Providers + +------+ + | Care Radiotelegraphist Name | Role | Phone | + [...] | Nephrology at | MD Emanuel [address] [facility] | | | | | [place] | [facility] | | | | | [facility] | [place], [place] | | | | | [address] | [address] | | | | | Mailcode: DCH7 | [phone] | | | | | Alexander | | | | | | [place], [place] | | | | | | [address] | | | | | | [phone] | | | +--------+ + + + [...] Ave | | | | | | [place], [place] | | | | | | [address] | | | | | | [phone] | | | | | | | [...] [address] | [place] [address] | [phone] | | HOSPITAL | | | | [...] | [address] | [place] [address] | [phone] | | HOSPITAL | | | | + + + + + documented in this encounter Visit Diagnoses Not on filedocumented in this encounter"
--- OUTSIDE RECORDS SUMMARY | ~2019-03-08 | XMS | Encounter Summary ---
Demographics + + + | Address | [address] | | | [place] [address] | + + + | Home Phone [...] | | | | | [place] [address] | | + + + + + | Thania Mallory | ECON | [address] | | | | | [place] [address] | | + + + + + | Deidra Weldon | ECON | [address] | | | | | [place] | | | | | [address] | | + + + + + Care Team Providers + +------+ + | Care Day Care Assistant Name | Role | Phone | [...] | | | | | [address] [facility] | [facility] | | | | | [facility], | [place], [place] | | | | | [place] [address] | [address] | | | | | [phone] | | | +--------+ + + + [...] Denise | | | | | | [place], [place] | | | | | | [address] | | | | | | [phone] | | | | | | | | +--------+ + + + + documented as of this encounter Visit Diagnoses Not on filedocumented in this encounter"
--- OUTSIDE RECORDS SUMMARY | ~2019-03-08 | XMS | Encounter Summary ---
Demographics + + + | Address | [address] | | | [place] [address] | + + + | Home Phone [...] | | | | | [place] [address] | | + + + + + | Thania Mallory | ECON | [address] | | | | | [place] [address] | | + + + + + | Deidra Weldon | ECON | [address] | | | | | [place] | | | | | [address] | | + + + + + Care Team Providers + +------+ + | Care Shampoo Technician Name | Role | Phone | [...] | | | [address] | [facility] | | | | | Caro Chan [place], | [place], [place] | | | | | [place] [address] | [address] | | | | | [phone] | | | +--------+ + + + [...] Denise | | | | | | [place] | | | | | | [address] | | | | | | [phone] | | | | | | | | +--------+ + + + + documented as of this encounter Visit Diagnoses Not on filedocumented in this encounter"
--- OUTSIDE RECORDS SUMMARY | ~2019-03-08 | XMS | Encounter Summary ---
Demographics + + + | Address | [address] | | | [place] [address] | + + + | Home Phone [...] | | | | | [place] [address] | | + + + + + | Thania Mallory | ECON | [address] | | | | | [place] [address] | | + + + + + | Deidra Weldon | ECON | [address] | | | | | [place] | | | | | [address] | | + + + + + Care Team Providers + +------+ + | Care Director Global Name | Role | Phone | + [...] | Clinical | Brittney Reyez RN | KP Waitlist (LD | | 2016 | | Transplant Services | [address] | questions) | | | | [address] | [facility] | | | | | [facility], | [place], [place] | | | | | [place] [address] | [address] | | | | | [phone] | | | +--------+ + + + [...] Denise | | | | | | [place] | | | | | | [address] | | | | | | [phone] | | | | | | | | +--------+ + + + + documented as of this encounter Visit Diagnoses Not on filedocumented in this encounter"
--- OUTSIDE RECORDS SUMMARY | ~2019-03-08 | XMS | Encounter Summary ---
Demographics + + + | Address | [address] | | | [place] [address] | + + + | Home Phone [...] [facility] | | | and [place] | + + + | Organization | [facility] | | [...] Team Providers + +------+ + | Care Dot Compliance Coordinator Name | Role | Phone | [...] | | [address] | [place] | | | | | [place], [place] | [place], [place] | | | | | [address] | [address] | | | | | [phone] | | | +--------+--------+ + + + [...] | | | | | [place] [address] | | | | | | [phone] | | | | | | | | +--------+---------+ + + + documented as of this encounter Visit Diagnoses Not on filedocumented in this encounter"
--- OUTSIDE RECORDS SUMMARY | ~2019-03-08 | XMS | Encounter Summary ---
Demographics + + + | Address | [address] | | | [place] [address] | + + + | Home Phone [...] | Author | [facility] | | | and [place] | + + + | Organization | [facility] | [...] Team Providers + +------+ + | Care Radio Station Manager Name | Role | Phone | [...] | | | | | malfunction, | [address] | [address] | | | | | initial | [address] [place] | [place], | | | | | encounter | [place], [place] | [place] [address] | | | | | ([facility]) | [address] | Phone: | | | | | | Phone: | [phone] | | | | | | [phone] | Fax: | | | | | | Fax: | [phone] | | | | | | [phone] | | +--------+ + + + + [...] fistula | MD [address] | [address] | | | | | malfunction, | [address] | [place], | | | | | initial | [address] [place] | [place] [address] | | | | | encounter | [place], [place] | Phone: | | | | | ([facility]) | [address] | [phone] | | | | | Procedures | Phone: | Fax: | | | | | IR Procedure | [phone] | [phone] | | | | | [address] | Fax: | | | | | | NEEDLE/CATH | [phone] | | | | | | A-V [...] NEPHROLOGY [address] | MD [address] | malfunction, initial | | | | [address] | [address] [place] | encounter (HCC) | | | | [place], [place] | [place] [address] | (Primary Dx) | | | | [address] | [phone] | | | | | [phone] | | | +--------+ + + + [...] [place] | | | | | | [place] [address] | | | | | | [phone] | | | | | | | [...] | Dialysis AV fistula malfunction, initial encounter ([facility]) - Primary | + + documented in this encounter"
--- OUTSIDE RECORDS SUMMARY | ~2019-03-08 | XMS | Encounter Summary ---
Demographics + + + | Address | [address] | | | [place] [address] | + + + | Home Phone [...] | | | | | [place] [address] | | + + + + + | Thania Mallory | ECON | [address] | | | | | [place] [address] | | + + + + + | Deidra Weldon | ECON | [address] | | | | | [place] | | | | | [address] | | + + + + + Care Team Providers + +------+ + | Care Nonprofit Fundraiser Name | Role | Phone | + [...] | | | | [address] [place] | [facility] | | | | | Park [place], | [place], [place] | | | | | [place] [address] | [address] | | | | | [phone] | | | +--------+ + + + [...] Denise | | | | | | [place] | | | | | | [address] | | | | | | [phone] | | | | | | | | +--------+ + + + + documented as of this encounter Visit Diagnoses Not on filedocumented in this encounter"
--- OUTSIDE RECORDS SUMMARY | ~2019-03-08 | XMS | Encounter Summary ---
Demographics + + + | Address | [address] | | | [place] [address] | + + + | Home Phone [...] | | | | | [place] [address] | | + + + + + | Thania Mallory | ECON | [address] | | | | | [place] [address] | | + + + + + | Deidra Weldon | ECON | [address] | | | | | [place] | | | | | [address] | | + + + + + Care Team Providers + +------+ + | Care Dimension Quarry Supervisor Name | Role | Phone | + +------+ + | Jonathan Alonso MD | PCP | | + +------+ + Encounter Details +--------+------+ + + + | Date | Type | Department | Care Team | Description | +--------+------+ + + + | 01/20/ | Lab | [facility] | | 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 [address] | | MEDICARE 0318; HSP | | | | [address] [place], | | ([place] | | | | [place] [address]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; | | | | [phone] | | Hemodialysis status | | | [...] Denise | | | | | | [place], [place] | | | | | | [address] | | | | | | [phone] | | | | | | | [...] | e | 9:59 AM | MEDICARE 6912 [facility] | procedure are in the | [...] | | | stage V ([facility]) | | + +--------+ + + + [...] | | | stage V ([facility]) | | + +--------+ + + + [...] | | | stage V ([facility]) | | + +--------+ + + + [...] | | | | ([facility]) Chronic | | | | | | kidney disease, | | | | | | stage V ([facility]) | | + +--------+ + + + [...] | | | stage V ([facility]) | | + +--------+ + + + | HIV-1,2 AB/HIV-1 P24 | Routin | 01/20/2015 | Allergic purpura- | Results for this | | AG SCRN | e | 9:59 AM | MEDICARE [address] [facility] | procedure are in the | | | | PST | ([facility] | results section. | | |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 | | | | | | Hemodialysis status | | | | | | ([facility]) Chronic | | | | | | kidney disease, | | | | | | stage V ([facility]) | | + +--------+ + + + [...] the | | | | PST | ([facility] | results section. | | | [...] the | | | | PST | ([facility] | results section. | | | | [...] the | | | | PST | ([facility] | results section. | | [...] the | | | | PST | ([facility] | results section. | | | | [...] the | | | | PST | ([facility] | results section. | | | | [...] the | | | | PST | ([facility] | results section. | | | | [...] the | | | | PST | ([facility] | results section. | | | | [...] the | | | | PST | ([facility] | results section. | | | [...] the | | | | PST | ([facility] | results section. | | | [...] | + + + + + | [facility] - AIRPORT - | [address] | [place] [address] | | | [place] | | | | + + + [...] LABORATORY | [address] | [place] [address] | | | SERVICES, CORE | PARK [...] [facility] | [address] | [place] [address] | | | SERVICES, SPECIAL | PARK [...] + + | [facility] | [address] | [place] [address] | | | DIAGNOSTIC | [address] [...] + | [facility] AIRPORT - | [address] | [place], [place] [address] | | | [place] | | | | + + + [...] + | [facility] AIRPORT - | [address] | [place] [address] | | | [place] | | | | + + + [...] + + + + | [facility] | [address] | [place] [address] | | | [place] | | | [...] + | [facility] - | [address] | [place] [address] | | | [place] | | | [...] by | | | | | | [employer],[address] | | | | | | [address] [place], [facility],[place] | | | | | | [address] | | | | | | [phone].[employer]. | | | | | | Faisal mantilla, | | | | | | Jenny ALMEIDA. Director | | | | + + + + + + + + | Specimen | + + | Blood - Blood | + + + + + + + | Performing | Address | City/State/[facility] | Phone Number | | Organization | | | | + + + + + | [facility] | [address] | [place], [place] | | | UN[facility] | | [address] | | + + + + + [...] | + + + + + | [facility] - | [address] | [place] [address] | | | [place] | | | | + + + [...] by | | | | | | [employer],[address] | | | | | | [place] | | | | | | [address] | | | | | | [phone].[email or web address]. | | | | | | Faisal [...] [facility] | [address] | [place], [place] | | | [facility] | | [address] | | + + + + + [...] LABORATORY | [address] | [place] [address] | | | SERVICES, CORE | PARK [...] | + + + + + | [facility] | [address] | [place] [address] | | | SERVICES, CORE | LONG [...] LABORATORY | [address] | [place] [address] | | | SERVICES, CORE | PARK [...] LABORATORY | [address] | [place] [address] | | | SERVICES, CORE | PARK [...] | + + + + + | [facility] | [address] [facility] [facility] | [place] [address] | | | SERVICES, HOMERO | LONG [...] | | | LABORATORY | | | BELGIAN | | | SERVICES, | | | [...] DANILO [place] | [address] | [place] [address] | | | SERVICES, CORE | PARK [...]
--- OUTSIDE RECORDS SUMMARY | ~2019-03-08 | XMS | Encounter Summary ---
Demographics + + + | Address | [address] | | | [place] [address] | + + + | Home Phone [...] | | | | | [place] [address] | | + + + + + | Thania Mallory | ECON | [address] | | | | | [place] [address] | | + + + + + | Deidra Weldon | ECON | [address] | | | | | [place] | | | | | [address] | | + + + + + Care Team Providers + +------+ + | Care Civil Division Deputy Sheriff Name | Role | Phone | + [...] change | | | | Caro Chan [place], | [place], [place] | clinic appt) | | | | [place] [address] | [address] | | | | | [phone] | | | +--------+ + + + [...] [place] | | | | | | [address] | | | | | | [phone] | | | | | | | | +--------+ + + + + documented as of this encounter Visit Diagnoses Not on filedocumented in this encounter"
--- OUTSIDE RECORDS SUMMARY | ~2019-03-08 | XMS | Encounter Summary ---
Demographics + + + | Address | [address] | | | [place] [address] | + + + | Home Phone [...] [facility] | | | and [place] | + + + | Organization | [facility] | [...] Team Providers + +------+ + | Care Tele Rn Name | Role | Phone | + +------+ + PCP | Unavailable | + +------+ + Encounter Details +--------+ + + + + | Date | Type | Department | Care Team | Description | +--------+ + + + + | 06/24/ | Hospital | [facility] | Rik Simon MD | | | 2015 | Encounter | [facility] | [address] | | | | | [address] | [place], [place] | | | | | [place], [place] | [address] | | | | | [address] | [phone] | | | | | [phone] | | | +--------+ + + + [...] 06/24/141340 Date of Service: 06/24/141340 Status: Signed Border Measurer: Merlin Carter RPH (Pharmacist) Clinical Pharmacy Note: [...] - 1.00 mg/dL Final Testing performed at [facility];[address];[place] [address] CREATININE: 7.55 mg/dL ABNORMAL (06/24/14 1045) Estimated creatinine clearance - 14.7 mL/min Pharmacy dosing for renal function per Dr. Simon. Currently, there are no medications needing to be adjusted. Pharmacy will continue to monit or for changes in medication orders and in renal function and adjust accordingly. Merlin Carter [facility] 06/24/2014 1:41 PM docume nted [...] [address] | | | | | | [place] [address] | | | | | | [phone] | | | | | | | [...] LAB | | | | Blvd;[place] [address] | | | | + + + + + + | Antibody | NEGATIVE | | EXTERNAL | | | Screen | | | LAB | | + + + + + + | Antibody | Testing performed at | | EXTERNAL | | | Screen | [facility];[address] | | LAB | | | | Blvd;[place] [address] | | | | + + + + + + | BB BAND | [id number] | | EXTERNAL | | | | | | LAB | | + + + + + + | BB BAND | Testing performed at | | EXTERNAL | | | | [facility];[address] | | LAB | | | | [address];[place] [address] | | | | + + + [...] | performed at [facility] | | | | | | [facility];[place], [place] | | | | | | [address] | | | | + + + [...] | | | QUALITATIVE | performed at [facility] | | LAB | | | | [address];[place], [place] | | | | | | [address] | | | | + + + [...] EXTERNAL | | | | performed at [facility];[address] | mmol/L | LAB | | | | [address];[place], [place] | | | | | | [address] | | | | + + + + + + | K | 4.3Comment: Testing | 3.5 - 4.9 | EXTERNAL | | | | performed at [facility];[address] | mmol/L | LAB | | | | [address];[place] | | | | | | [address] | | | | + + + + + + | Cl | 101Comment: Testing | 99 - 109 mmol/L | EXTERNAL | | | | performed at [facility];[address] | | LAB | | | | [address];[place] | | | | | | [address] | | | | + + + + + + | CO2 | 23Comment: Testing | 23 - 32 mmol/L | EXTERNAL | | | | performed at [facility];[address] | | LAB | | | | [address];[place] | | | | | | [address] | | | | + + + + + + | Anion Gap | 16Comment: Testing | 5 - 20 mmol/L | EXTERNAL | | | | performed at [facility];[address] | | LAB | | | | [address];[place] | | | | | | [address] | | | | + + + + + + | Glucose, | 84Comment: Testing | 65 - 99 mg/dL | EXTERNAL | | | Fasting | performed at [facility];[address] | | LAB | | | | [address];[place] | | | | | | [address] | | | | + + + + + + | BUN | 40 (H)Comment: Testing | 8 - 25 mg/dL | EXTERNAL | | | | performed at [facility];[address] | | LAB | | | | [address];[place] | | | | | | [address] | | | | + + + + + + | Creatinine | 7.55 (H)Comment: Testing | 0.50 - 1.00 | EXTERNAL | | | | performed at [facility];[address] | mg/dL | LAB | | | | [address];[place] | | | | | | [address] | | | | + + + + + + | BUN/Creatin | 5Comment: Testing | | EXTERNAL | | | ine Ratio | performed at [facility];[address] | | LAB | | | | [address];[place] | | | | | | [address] | | | | + + + + + + | Calcium | 9.8Comment: Testing | 8.5 - 10.5 | EXTERNAL | | | | performed at [facility];888 | mg/dL | LAB | | | | [address];[place] | | | | | | [address] | | | | + + + [...] [facility];[address] | | | | | | [address];[place] | | | | | | [address] | | | | + + + [...]
--- OUTSIDE RECORDS SUMMARY | ~2019-03-08 | XMS | Encounter Summary ---
Demographics + + + | Address | [address] | | | [place] [address] | + + + | Home Phone [...] | | | | | [place] [address] | | + + + + + | Thania Mallory | ECON | [address] | | | | | [place] [address] | | + + + + + | Deidra Weldon | ECON | [address] | | | | | [place] | | | | | [address] | | + + + + + Care Team Providers + +------+ + | Care Bridge Repairer Name | Role | Phone | [...] | | | | [address] [place] | [facility] | | | | | Park [facility], | [place], [place] | | | | | [place] [address] | [address] | | | | | [phone] | | | +--------+ + + + [...] Denise | | | | | | [place], [place] | | | | | | [address] | | | | | | [phone] | | | | | | | | +--------+ + + + + documented as of this encounter Visit Diagnoses Not on filedocumented in this encounter"
--- OUTSIDE RECORDS SUMMARY | ~2019-03-08 | XMS | Encounter Summary ---
Demographics + + + | Address | [address] | | | [place] [address] | + + + | Home Phone [...] Author | [facility] | | | and [place] | + + + | Organization | [facility] | | [...] Team Providers + +------+ + | Care Engineering Director Name | Role | Phone | [...] NEPHROLOGY [address] | MD [address] | (Asymptomatic) | | | | [address] | [address] [place] | | | | | [place], [place] | [place] [address] | | | | | [address] | [phone] | | | | | [phone] | | | +--------+ + + + [...] of this encounter Progress Marilyn Jennings - 11/29/2013 3:01 PM PDTHemodialysis progress note e-faxed to [facility], Lianna Joy MD, [facility] Renal Transplant Clinic on 11/29/13.Electronical ly signed by Marilyn Palumbo at 11/29/2013 3:02 PM Daniela Marquez MD - 11/22/2013 11 :03 AM PDT Comprehensive Dialysis Monthly Note Date of visit: 11/22/2013 Dialysis Clinic: [facility] Mode of dialysis: Hemodialysis Dialysis prescription: MWF, [...] 2012. Access: R chest catheter. Re-referred to [facility] transplant in Oct 2013 by speech language pathologist. Peritonitis, dialysis-associated (HCC) 07/29/2013 Note Last Updated: 07/29/2013 Due to MSSA. Had tunneled infection as well. PD catheter removed in July 2013. On Keflex till 08/01/13. History of Henoch-Schonlein purpura Note Last Updated: 07/29/2013 Diagnosed at age 10[address] Joy, speech language pathologist. Anemia in ESRD (end-stage renal disease) (HCC) [...] months of dialyzing via chest catheter. Soren lundy, pt has not had any infectious complication to date. -per [facility] transplant, AVF is not recommended at this [...] living donor. Pt has been referred to [facility] in [place] [address] Joy. -followed up with [facility] Lianna Joy, [facility] Pediatric Nephrology [facility] Renal transplant documented in [...] [address] | | | | | | [place] [address] | | | | | | [phone] | | | | | | | [...]
--- OUTSIDE RECORDS SUMMARY | ~2019-03-08 | XMS | Encounter Summary ---
Demographics + + + | Address | [address] | | | [place] [address] | + + + | Home Phone [...] | | | | | [place] [address] | | + + + + + | Thania Mallory | ECON | [address] | | | | | [place] [address] | | + + + + + | Deidra Weldon | ECON | [address] | | | | | [place] | | | | | [address] | | + + + + + Care Team Providers + +------+ + | Care Belt Weaver Name | Role | Phone | + +------+ + PCP | Unavailable | + +------+ + Encounter Details +--------+ + + + + | Date | Type | Department | Care Team | Description | +--------+ + + + + | 04/09/ | Abstract | Pediatric | Sudhakar Joy | | | 2013 | | Nephrology at | MD [address]manuel [address] | | | | | [address] | [address] | | | | | [facility] | [place], [place] | | | | | [address] [facility] | [address] | | | | | Mailcode: [id number] | [phone] | | | | | Alexander | | | | | | [place], [place] | | | | | | [address] | | | | | | [phone] | | | +--------+ + + + [...] Denise | | | | | | [place], [place] | | | | | | [address] | | | | | | [phone] | | | | | | | | +--------+ + + + + documented as of this encounter Visit Diagnoses Not on filedocumented in this encounter"
--- OUTSIDE RECORDS SUMMARY | ~2019-03-08 | XMS | Encounter Summary ---
Demographics + + + | Address | [address] | | | [place] [address] | + + + | Home Phone [...] Author | [facility] | | | and [place] | + + + | Organization | [facility] | [...] Providers + +------+ + | Care Client Associate Name | Role | Phone | [...] | Encounter | JOY | MD Emanuel [address] | | | | | [address] | [facility] | | | | | [address] | [place], [place] | | | | | [place] | [address] | | | | | [address] | [phone] | | | | | [phone] | | | +--------+ + + + [...] [address] | | | | | | [place] [address] | | | | | | [phone] | | | | | | | | +--------+---------+ + + + documented as of this encounter Visit Diagnoses Not on filedocumented in this encounter"
--- OUTSIDE RECORDS SUMMARY | ~2019-03-08 | XMS | Encounter Summary ---
Demographics + + + | Address | [address] | | | [place] [address] | + + + | Home Phone [...] | | | | | [place] [address] | | + + + + + | Thania Mallory | ECON | [address] | | | | | [place] [address] | | + + + + + | Deidra Weldon | ECON | [address] | | | | | [place] | | | | | [address] | | + + + + + Care Team Providers + +------+ + | Care Airbrush Painter Name | Role | Phone | [...] [address] [facility] | [facility] | | | | | Park [facility], | [place], [place] | | | | | [place] [address] | [address] | | | | | [phone] | | | +--------+ + + + [...] Denise | | | | | | [place], [place] | | | | | | [address] | | | | | | [phone] | | | | | | | | +--------+ + + + + documented as of this encounter Visit Diagnoses Not on filedocumented in this encounter"
--- OUTSIDE RECORDS SUMMARY | ~2019-03-08 | XMS | Encounter Summary ---
Demographics + + + | Address | [address] | | | [place] [address] | + + + | Home Phone [...] | | | | | [place] [address] | | + + + + + | Thania Mallory | ECON | [address] | | | | | [place] [address] | | + + + + + | Deidra Weldon | ECON | [address] | | | | | [place] | | | | | [address] | | + + + + + Care Team Providers + +------+ + | Care Personal Computer Network Engineer Name | Role | Phone | [...] | | [phone] | [facility] | | | | | [facility], | [place], [place] | | | | | [place] [address] | [phone] | | | | | [phone] | | | +--------+ + + + [...] Denise | | | | | | [place], [place] | | | | | | [address] | | | | | | [phone] | | | | | | | | +--------+ + + + + documented as of this encounter Visit Diagnoses Not on filedocumented in this encounter"
--- OUTSIDE RECORDS SUMMARY | ~2019-03-08 | XMS | Encounter Summary ---
Demographics + + + | Address | [address] | | | [place] [address] | + + + | Home Phone [...] + | Author | [facility] | | | and [place] | + + + | Organization | [facility] | | [...] Team Providers + +------+ + | Care Bolting Machine Operator Name | Role | Phone [...] NEPHROLOGY [address] | M, DO [address] | | | | | [address] | [place] | | | | | [place], [place] | [place], [place] | | | | | [address] | [address] | | | | | [phone] | | | +--------+ + + + [...] | | | | | [place] [address] | | | | | | [phone] | | | | | | | | +--------+---------+ + + + documented as of this encounter Visit Diagnoses Not on filedocumented in this encounter"
--- OUTSIDE RECORDS SUMMARY | ~2019-03-08 | XMS | Encounter Summary ---
Demographics + + + | Address | [address] | | | [place] [address] | + + + | Home Phone [...] | | | | | [place] [address] | | + + + + + | Thania Mallory | ECON | [address] | | | | | [place] [address] | | + + + + + | Deidra Weldon | ECON | [address] | | | | | [place] | | | | | [address] | | + + + + + Care Team Providers + +------+ + | Care Brake Repairer Railroad Name | Role | Phone | + [...] | | | [address] | [facility] | | | | | [place], | [place], [place] | | | | | [place] [address] | [address] | | | | | [phone] | [phone] | | | | | | | [...] Denise | | | | | | [place] | | | | | | [address] | | | | | | [phone] | | | | | | | | +--------+ + + + + documented as of this encounter Visit Diagnoses Not on filedocumented in this encounter"
--- OUTSIDE RECORDS SUMMARY | ~2019-03-08 | XMS | Encounter Summary ---
Demographics + + + | Address | [address] [facility] [place] [address] | | | [place] [address] | + + + | Home Phone [...] | | | | | [place] [address] | | + + + + + | Thania Mallory | ECON | [address] | | | | | [place] [address] | | + + + + + | Deidra Weldon | ECON | [address] | | | | | [place] | | | | | [address] | | + + + + + Care Team Providers + +------+ + | Care Accuracy Expert Name | Role | Phone | + [...] | | | [address] | [facility] | | | | | [place], | [place], [place] | | | | | [place] [address] | [address] | | | | | [phone] | | | +--------+ + + + [...] [place] | | | | | | [address] | | | | | | [phone] | | | | | | | | +--------+ + + + + documented as of this encounter Visit Diagnoses Not on filedocumented in this encounter"
--- OUTSIDE RECORDS SUMMARY | ~2019-03-08 | XMS | Encounter Summary ---
Demographics + + + | Address | [address] | | | [place] [address] | + + + | Home Phone [...] | Author | [facility] | | | and [place] | + + + | Organization | [facility] | | | [...] Team Providers + +------+ + | Care Chart Picker Name | Role | Phone | [...] + + | 01/07/ | Hospital | [facility] | Florian Nelson, | Hyperkalemia | | 2019 - | Encounter | [facility] | [address] | (Primary Dx); ESRD | | | | CARE FLOOR [address] | [place] [address] | needing dialysis | | 01/10/ | | [address] | [phone] | ([facility]); Acute | | 2019 | | [place], [place] | | respiratory | | | | [address] | Herccristiana, Megan, DO | distress; Recurrent | | | | [phone] | [address] | right pleural | | | | | [place] [address] | effusion; Anemia in | | | | | [phone] | ESRD (end-stage | | | | | | renal disease) | | | | | Nicholas Sutton MD | ([facility]); At high risk | | | | | [address] | for electrolyte | | | | | [place] [address] | imbalance; Chronic | | | | | [phone] | 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 | | | | | Piedad Mosquera MD | failure ([facility]); | | | | | [address] | Dilated | | | | | [place] [address] | cardiomyopathy | | | | | [phone] | ([facility]); ESRD on | | | | | | hemodialysis ([facility]); | | | | | Paty Kline DO | Noncompliance; | | | | | [address] | Uncontrolled | | | | | [place] [address] | hypertension | | | | | [phone] | | | | | | | [...] and 2 tablet with snacks twice da karmon aka: RENVELA VENOFER 20 mg/mL injection Generic [...] a refill from your regular physician or cook frozen dessert. We are always happy to be a [...] the advice of your doctor or health primary care sales representative. A special MedGuide will be given to you by the pharmacist with each prescription and refill . Be sure to read this information carefully each time. Talk to your press tender incendiary grenade regarding the use of this medicine in children. Special care may be needed. What side effects may I notice from receiving this medicine? Side effects that you should report to your doctor or health primary care sales representative as soon as p ossible: allergic reactions [...] attention (report to your doctor or health primary care sales representative if they continue or are bothersome): dizziness [...] this medicine? Tell your doctor or health primary care sales representative if your symptoms do not start to [...] dying should be reported to your health primary care sales representative right away. NOTE:This sheet is a summary. [...] was completed later after rounds. Dictation software, [employer], was used which may contain error for [...] Nereida Cole RN - 01/09/2019 1:30 PM [id number]- Pt c/o chest pain rated 9/10, described [...] orders at this time, however EKG ordered. avionics systems technician called and en route. 1340- EKG [...] was completed later after rounds. Dictation software, [employer], was used which may contain error for [...] Kline DO - 01/09/2019 8:20 AM PST [facility] Adult Hospitalist Progress Note Hospital Day: 2 [...] Hyperkalemia: -Treated in the emergency room at [facility] that he had, potassium now [...] of transfusion at this time -Epogen per cook frozen dessert GI and DVT prophylaxis Paty Kline DO [...] was completed later after rounds. Dictation software, [employer], was used which may contain error for [...] DO Paty - 01/08/2019 7:50 AM PST [facility] Adult Hospitalist Progress Note Hospital Day: 1 [...] Hyperkalemia: -Treated in the emergency room at [facility] that he had, potassium now [...] of transfusion at this time -Epogen per cook frozen dessert Hypoglycemia: -Likely secondary to insulin given for her hyperkalemia and decrease PO intake -Hypoglycemic protocol GI and DVT prophylaxis Paty Kline DO 01/08/2019 Piedad Vega MD - 01/07/2019 7:14 AM PST [facility] Service: Hospitalist Progress Note Hospital Day: LOS: 0 days SUBJECTIVE Patient Summary: From HPI Dr. Martínez 01/07/19 The patient is a 23 y.o. female with significant past medical history of HSP nephritis, rig ht pleural effusions recurrent, thoracentesis, bacteremia, clotted hemodialysis catheter, no ncompliance, asthma who presents transferred from [facility] with hyperkalemia, hyperte nsion noncompliant [...] life. Patient was treated for hyperkalemia in [facility] as her potassium was 6.8. The data from [facility] was a chest x-ray which [...] for input(s): IRON, TIBC, PCTSAT, FERRITIN, TSH, [id number], FOLATE in the last 168 hours. No [...] Hyperkalemia: -Treated in the emergency room at [facility] that he had, potassium now [...] of transfusion at this time -Epogen per cook frozen dessert Hypoglycemia: -Likely secondary to insulin given for [...] [address] | | | | | | [place] [address] | | | | | | [phone] | | | | | | | [...] | | | POC | performed at [facility];[address] | | LABORATORY | | | | [address];[place], [place] | | | | | | [address] | | | | + + + + + + + + | Specimen | + + | | + + + + + + + | Performing | Address | City/State/Zipcode | Phone Number | | Organization | | | | + + + + + | [facility] | [address] | [place] [address] | [phone] | + + + + + POC [...] | | | POC | performed at [facility];[address] | | LABORATORY | | | | [address];[place] | | | | | | [address] | | | | + + + + + + + + | Specimen | + + | | + + + + + + + | Performing | Address | City/State/Zipcode | Phone Number | | Organization | | | | + + + + + | [facility] | [address] | [place] [address] | [phone] | + + + + + CBC [...] MISHEL | | | | performed at [facility];[address] | | LABORATORY | | | | [address];[place], [place] | | | | | | [address] | | | | + + + + + + + + | Specimen | + + | Blood | + + + + + + + | Performing | Address | City/State/Zipcode | Phone Number | | Organization | | | | + + + + + | [facility] | [address] | [place] [address] | [phone] | + + + + + Phosphorus (01/10/2019 7:03 AM PST) + + + + + + | Component | Value | Ref Range | Performed | Pathologist | | | | | At | Signature | + + + + + + | Phosphorus | 5.4 (H)Comment: Testing | 2.3 - 4.8 mg/dL | [place] | | | | performed at [facility];[address] | | LABORATORY | | | | [address];[place], [place] | | | | | | [address] | | | | + + + + + + + + | Specimen | + + | Blood | + + + + + + + | Performing | Address | City/State/Zipcode | Phone Number | | Organization | | | | + + + + + | [facility] | [address] | [place] [address] | [phone] | + + + + + Magnesium (01/10/2019 7:03 AM PST) + + + + + + | Component | Value | Ref Range | Performed | Pathologist | | | | | At | Signature | + + + + + + | Magnesium | 2.0Comment: Testing | 1.7 - 2.4 mg/dL | [facility] | | | | performed at [facility];[address] | | LABORATORY | | | | [address];[place] | | | | | | [address] | | | | + + + + + + + + | Specimen | + + | Blood | + + + + + + + | Performing | Address | City/State/Zipcode | Phone Number | | Organization | | | | + + + + + | [facility] | [address] | [place] [address] | [phone] | + + + + + Basic [...] | | | | performed at [facility];[address] | | | | | | [facility];[place], [place] | | | | | | [address] | | | | + + + + + + + + | Specimen | + + | Blood | + + + + + + + | Performing | Address | City/State/Zipcode | Phone Number | | Organization | | | | + + + + + | [facility] | [address] | [place] [address] | [phone] | + + + + + POC [...] | | | POC | performed at [facility];[address] | | LABORATORY | | | | [address];[place], [place] | | | | | | [address] | | | | + + + + + + + + | Specimen | + + | | + + + + + + + | Performing | Address | City/State/Zipcode | Phone Number | | Organization | | | | + + + + + | [facility] | [address] | [place] [address] | [phone] | + + + + + POC [...] | | | POC | performed at [facility];[address] | | LABORATORY | | | | [address];[place], [place] | | | | | | [address] | | | | + + + + + + + + | Specimen | + + | | + + + + + + + | Performing | Address | City/State/Zipcode | Phone Number | | Organization | | | | + + + + + | [facility] | [address] | [place] [address] | [phone] | + + + + + XR [...] | | PORTABLE (01/07/2019); CHEST TWO VIEWS 16494 (01/06/2019); XR CHEST AP | | | [...] PORTABLE (01/07/2019); | | CHEST TWO VIEWS 12837 (01/06/2019); XR CHEST AP PORTABLE (12/13/2018); | [...] | | | POC | performed at [facility];[address] | | LABORATORY | | | | [address];[place], [place] | | | | | | [address] | | | | + + + + + + + + | Specimen | + + | | + + + + + + + | Performing | Address | City/State/Zipcode | Phone Number | | Organization | | | | + + + + + | [facility] | [address] | [place] [address] | [phone] | + + + + + Comprehensive [...] | | | | performed at [facility];[address] | | | | | | [facility];[place], [place] | | | | | | [address] | | | | + + + + + + + + | Specimen | + + | Blood | + + + + + + + | Performing | Address | City/State/Zipcode | Phone Number | | Organization | | | | + + + + + | [facility] | [address] [facility] | [place] [address] | [phone] | + + + + + CBC [...] | | LABORATORY | | | | KM;[address] [place] [address] | | | | | | Blvd;[place] [address] | | | | + + + + + + + + | Specimen | + + | Blood | + + + + + + + | Performing | Address | City/State/Zipcode | Phone Number | | Organization | | | | + + + + + | [facility] | [address] | [place] [address] | [phone] | + + + + + POC [...] | | | POC | performed at [facility];[address] | | LABORATORY | | | | [address];[place] | | | | | | [address] | | | | + + + + + + + + | Specimen | + + | | + + + + + + + | Performing | Address | City/State/Zipcode | Phone Number | | Organization | | | | + + + + + | [facility] | [address] | [place] [address] | [phone] | + + + + + POC [...] | | | POC | performed at [facility];[address] | | LABORATORY | | | | [address];[place] | | | | | | [address] | | | | + + + + + + + + | Specimen | + + | | + + + + + + + | Performing | Address | City/State/Zipcode | Phone Number | | Organization | | | | + + + + + | [facility] | [address] | [place] [address] | [phone] | + + + + + POC [...] | | | POC | performed at [facility];[address] | | LABORATORY | | | | [address];[place], [place] | | | | | | [address] | | | | + + + + + + + + | Specimen | + + | | + + + + + + + | Performing | Address | City/State/Zipcode | Phone Number | | Organization | | | | + + + + + | [facility] | [address] | [place] [address] | [phone] | + + + + + POC [...] | | | POC | performed at [facility];[address] | | LABORATORY | | | | [address];[place] | | | | | | [address] | | | | + + + + + + + + | Specimen | + + | | + + + + + + + | Performing | Address | City/State/Zipcode | Phone Number | | Organization | | | | + + + + + | [facility] | [address] | [place] [address] | [phone] | + + + + + POC Glucose (01/08/2019 12:23 PM PST) + + + + + + | Component | Value | Ref Range | Performed | Pathologist | | | | | At | Signature | + + + + + + | Glucose, | 76Comment: Testing | 65 - 99 mg/dL | [facility] | | | POC | performed at [facility];[address] | | LABORATORY | | | | [address];[place] | | | | | | [address] | | | | + + + + + + + + | Specimen | + + | | + + + + + + + | Performing | Address | City/State/Zipcode | Phone Number | | Organization | | | | + + + + + | [facility] | [address] | [place] [address] | [phone] | + + + + + POC Glucose (01/08/2019 7:35 AM PST) + + + + + + | Component | Value | Ref Range | Performed | Pathologist | | | | | At | Signature | + + + + + + | Glucose, | 74Comment: Testing | 65 - 99 mg/dL | [facility] | | | POC | performed at [facility];[address] | | LABORATORY | | | | [address];[place] | | | | | | [address] | | | | + + + + + + + + | Specimen | + + | | + + + + + + + | Performing | Address | City/State/Zipcode | Phone Number | | Organization | | | | + + + + + | [facility] | [address] | [place] [address] | [phone] | + + + + + Comprehensive [...] 6 (L)Comment: GFR <60: | >60 | [facility] | | | GFR [...] | | | | | | [facility], | | | | | | [place] [address] | | | | + + + + + + + + | Specimen | + + | Blood | + + + + + + + | Performing | Address | City/State/Zipcode | Phone Number | | Organization | | | | + + + + + | [facility] | [address] | [place] [address] | [phone] | + + + + + CBC [...] | | | | | [place] [address] | | | | + + + + + + + + | Specimen | + + | Blood | + + + + + + + | Performing | Address | City/State/Zipcode | Phone Number | | Organization | | | | + + + + + | [facility] | [address] | [place] [address] | [phone] | + + + + + POC [...] | | | POC | performed at [facility];[address] | | LABORATORY | | | | [address];[place] | | | | | | [address] | | | | + + + + + + + + | Specimen | + + | | + + + + + + + | Performing | Address | City/State/Zipcode | Phone Number | | Organization | | | | + + + + + | [facility] | [address] | [place] [address] | [phone] | + + + + + POC [...] | | | POC | performed at [facility];[address] | | LABORATORY | | | | [address];[place] | | | | | | [address] | | | | + + + + + + + + | Specimen | + + | | + + + + + + + | Performing | Address | City/State/Zipcode | Phone Number | | Organization | | | | + + + + + | [facility] | [address] | [place] [address] | [phone] | + + + + + CT [...] adenopathy. Upper Abdomen: The | | | [place] kidneys are atrophic. There is a small [...] No adenopathy. | | Upper Abdomen: The [place] kidneys are atrophic. There is a small [...] | | | POC | performed at [facility];[address] | | LABORATORY | | | | [address];[place], [place] | | | | | | [address] | | | | + + + + + + + + | Specimen | + + | | + + + + + + + | Performing | Address | City/State/Zipcode | Phone Number | | Organization | | | | + + + + + | [facility] | [address] | [place] [address] | [phone] | + + + + + Hepatitis [...] | | LABORATORY | | | | [facility], [address] | | | | | | [place] | | | | | | [address] | | | | + + + + + + + + | Specimen | + + | Blood | + + + + + + + | Performing | Address | City/State/Zipcode | Phone Number | | Organization | | | | + + + + + | [facility] | [address] | [place] [address] | [phone] | + + + + + POC [...] | | | POC | performed at [facility];[address] | | LABORATORY | | | | [address];[place] | | | | | | [address] | | | | + + + + + + + + | Specimen | + + | | + + + + + + + | Performing | Address | City/State/Zipcode | Phone Number | | Organization | | | | + + + + + | [facility] | [address] | [place] [address] | [phone] | + + + + + XR [...] (500), | | | | | | society editor JOSH CHAPPELL | | | | | | ([phone]) on 01/07/2019 | | | | | [...] | | | POC | performed at [facility];[address] | | LABORATORY | | | | [address];[place] | | | | | | [address] | | | | + + + + + + + + | Specimen | + + | | + + + + + + + | Performing | Address | City/State/Zipcode | Phone Number | | Organization | | | | + + + + + | [facility] | [address] | [place] [address] | [phone] | + + + + + POC [...] | | | POC | performed at [facility];[address] | | LABORATORY | | | | [address];[place] | | | | | | [address] | | | | + + + + + + + + | Specimen | + + | | + + + + + + + | Performing | Address | City/State/Zipcode | Phone Number | | Organization | | | | + + + + + | [facility] | [address] | [place] [address] | [phone] | + + + + + Troponin I (01/07/2019 1:40 AM PST) + + + + + + | Component | Value | Ref Range | Performed | Pathologist | | | | | At | Signature | + + + + + + | Troponin I | 0.149 (H)Comment: 0.04 | 0.00 - 0.04 | [facility] | | [...] at | | | | | | [facility];[address] [place] [address] | | | | | | Blvd;[place] [address] | | | | + + + + + + + + | Specimen | + + | Blood | + + + + + + + | Performing | Address | City/State/Zipcode | Phone Number | | Organization | | | | + + + + + | [facility] | [address] | [place] [address] | [phone] | + + + + + Comprehensive [...] 38 | 10 - 65 U/L | [facility] | | | | | | LABORATORY | | + + + + + + | Estimated | 3 (L)Comment: GFR <60: | >60 | [facility] | | | GFR [...] | | | | performed at [facility];[address] | | | | | | [facility];[place], [place] | | | | | | [address] | | | | + + + + + + + + | Specimen | + + | Blood | + + + + + + + | Performing | Address | City/State/Zipcode | Phone Number | | Organization | | | | + + + + + | [facility] | [address] | [place] [address] | [phone] | + + + + + CBC [...] | | | | | | at [facility];[address] [place] [address] | | | | | | Blvd;[place] [address] | | | | | |NORMAL PLT MORPH | | | | | |Testing performed at [facility];[address] [place] [address];[place] [address] | | | | | | | [...] CENTER [facility]ORY | [address] | [place] [address] | [phone] | + + + + + Thoracentesis [...] space: 6th Puncture method: | | | lgln-rmf-hvovbl catheter Needle size: 18 Catheter size: 18 [...] Chronic combined systolic and diastolic heart failure ([facility]) Chronic combined systolic | | and diastolic heart failure | + + | Dilated cardiomyopathy ([facility]) Other primary cardiomyopathies | + + | ESRD on hemodialysis ([facility]) End stage [...] anxiety with hemodialysis, | | | Starting [facility] 01/10/19 at 0952 | | + +---+ [...]
--- OUTSIDE RECORDS SUMMARY | ~2019-03-08 | XMS | Encounter Summary ---
Demographics + + + | Address | [address] | | | [place] [address] | + + + | Home Phone [...] | Author | [facility] | | | and [place] | + + + | Organization | [facility] | | [...] Team Providers + +------+ + | Care Vice President Global Digital Marketing Name | Role | Phone | [...] | | | | | | [place] | | | | | | | [...] + + | 02/24/ | Anesthesia | [facility] | Celso Dacosta | Obesity (BMI | | 2013 | Event | [facility] | MD [place] [address] | 30.0-34.9) (Primary | | | | [address] | [address] [place] | Dx) | | | | [place] | [address] | | | | | [address] | | | | | | [phone] | | | +--------+ + + + [...] +----+---+ + + | | 0 | [place] | | | | 7 | 43-degrees [...] +----+---+ + + | | 1 | [place] off | | | | 0 | [...] | [READ | (present upon arrival to [facility]); | 02/24/14 1045 by | 05/28/18 1643 [...] | [READ | (present upon arrival to [facility]); | 02/24/14 1049 by | 05/28/18 1643 [...] E | | | | | | [place] [address] | | | | | | [phone] | | | | | | | [...]
--- OUTSIDE RECORDS SUMMARY | ~2019-03-08 | XMS | Encounter Summary ---
Demographics + + + | Address | [address] | | | [place] [address] | + + + | Home Phone [...] | | | | | [place] [address] | | + + + + + | Thania Mallory | ECON | [address] | | | | | [place] [address] | | + + + + + | Deidra Weldon | ECON | [address] | | | | | [place] | | | | | [address] | | + + + + + Care Team Providers + +------+ + | Care Laboratory Analyst Name | Role | Phone | [...] | | | | [address] [place] | [facility] | | | | | [facility], | [place], [place] | | | | | [place] [address] | [address] | | | | | [phone] | | | +--------+ + + + [...] Denise | | | | | | [place], [place] | | | | | | [address] | | | | | | [phone] | | | | | | | | +--------+ + + + + documented as of this encounter Visit Diagnoses Not on filedocumented in this encounter"
--- OUTSIDE RECORDS SUMMARY | ~2019-03-08 | XMS | Encounter Summary ---
Demographics + + + | Address | [address] | | | [place] [address] | + + + | Home Phone [...] | | | | | [place] [address] | | + + + + + | Thania Mallory | ECON | [address] | | | | | [place] [address] | | + + + + + | Deidra Weldon | ECON | [address] | | | | | [place] | | | | | [address] | | + + + + + Care Team Providers + +------+ + | Care Torpedo Worker Name | Role | Phone | [...] | | | | | Caro Chan [place], | | | | | | [place] [address] | | | +--------+ + + + [...] Denise | | | | | | [place], [place] | | | | | | [address] | | | | | | [phone] | | | | | | | [...] [facility] - | [address] | [place] [address] | | | IMMUNOGENETICS/TRANS | [address] [...] [facility] - | [address] | [place] [address] | | | IMMUNOGENETICS/TRANS | [address] [...] [facility] - | [address] | [place] [address] | | | IMMUNOGENETICS/TRANS | [address] | | | | [facility] | | | | + + + + + documented in this encounter Visit Diagnoses + + | Diagnosis | + + | End stage renal disease (HCC) End stage renal disease | + + documented in this encounter"
--- OUTSIDE RECORDS SUMMARY | ~2019-03-08 | XMS | Encounter Summary ---
Demographics + + + | Address | [address] | | | [place] [address] | + + + | Home Phone [...] | | | | | [place] [address] | | + + + + + | Thania Mallory | ECON | [address] | | | | | [place] [address] | | + + + + + | Deidra Weldon | ECON | [address] | | | | | [place] | | | | | [address] | | + + + + + Care Team Providers + +------+ + | Care Habilitation Worker Name | Role | Phone | [...] | Nephrology at | MD Emanuel [address] [facility] | | | | | [place] | [facility] | | | | | [facility] | [place], [place] | | | | | [address] [facility] | [address] | | | | | Mailcode: DCH7 | [phone] | | | | | [place] | | | | | | [place], [place] | | | | | | [address] | | | | | | [phone] | | | +--------+ + + + [...] | | | | | | [place] | | | | | | [address] | | | | | | [phone] | | | | | | | | +--------+ + + + + documented as of this encounter Visit Diagnoses Not on filedocumented in this encounter"
--- OUTSIDE RECORDS SUMMARY | ~2019-03-08 | XMS | Encounter Summary ---
Demographics + + + | Address | [address] | | | [place] [address] | + + + | Home Phone [...] Author | [facility] | | | and Josephana | + + + | Organization | [facility] | [...] Providers + +------+ + | Care Home Appliance Washing Machine Mechanic Name | Role | [...] + + | 02/21/ | Telephone | [facility] | Blake Chavarria | Procedure (Question) | | 2013 | | SURGERY [address] | MD Antonieta, FACS [address] | | | | | [place], [place] | [address] [facility] | | | | | [address] | [place] [address] | | | | | [phone] | [phone] | | | | | | | [...] DAV[place]SON | | | | | | [place] [address] | | | | | | [phone] | | | | | | | | +--------+---------+ + + + documented as of this encounter Visit Diagnoses Not on filedocumented in this encounter"
--- OUTSIDE RECORDS SUMMARY | ~2019-03-08 | XMS | Encounter Summary ---
Demographics + + + | Address | [address] | | | [place] [address] | + + + | Home Phone [...] + | Author | [facility] | | | and Josephana | + + + | Organization | [facility] | | | [...] Providers + +------+ + | Care Electric Melt Operator Name | Role | Phone | [...] + | 03/05/ | Clinical | [facility] | Blake Chavarria | End stage renal | | 2013 | Support | SURGERY [address] | MD Antonieta, FACS [address] | failure on dialysis | | | | [place], [place] | [facility] | ([facility]) (Primary Dx) | | | | [address] | [place] [address] | | | | | [phone] | [phone] | | | | | | | [...] DAVIDSON | | | | | | [place] [address] | | | | | | [phone] | | | | | | | | +--------+---------+ + + + documented as of this encounter Visit Diagnoses + + | Diagnosis | + + | End stage renal failure on dialysis (HCC) - Primary End stage renal disease | + + documented in this encounter"
--- OUTSIDE RECORDS SUMMARY | ~2019-03-08 | XMS | Encounter Summary ---
Demographics + + + | Address | [address] | | | [place] [address] | + + + | Home Phone [...] | | | | | [place] [address] | | + + + + + | Thania Mallory | ECON | [address] | | | | | [place] [address] | | + + + + + | Deidra Weldon | ECON | [address] | | | | | [place] | | | | | [address] | | + + + + + Care Team Providers + +------+ + | Care Sales Representative Aircraft Name | Role | Phone | + [...] erpretation | Cardiology at | [address] [facility] | disease (HCC) | | | | [place] | [address] | (Primary Dx) | | | | [facility] | [place], [place] | | | | | [address] | [address] | | | | | Mailcode: LEYLA | [phone] | | | | | [place] | | | | | | [place], [place] | | | | | | [address] | | | | | | [phone] | | | +--------+ + + + [...] Denise | | | | | | [place], [place] | | | | | | [address] | | | | | | [phone] | | | | | | | [...] status | | | | | | ([facility]) Chronic | | | | | | kidney disease, | | | | | | stage V ([facility]) | | + +--------+ + + + documented in this encounter Visit Diagnoses + + | Diagnosis | + + | End-stage renal disease (HCC) - Primary End stage renal disease | + + documented in this encounter"
--- OUTSIDE RECORDS SUMMARY | ~2019-03-08 | XMS | Encounter Summary ---
Demographics + + + | Address | [address] | | | [place] [address] | + + + | Home Phone [...] | | | | | [place] [address] | | + + + + + | Thania Mallory | ECON | [address] | | | | | [place] [address] | | + + + + + | Deidra Weldon | ECON | [address] | | | | | [place] | | | | | [address] | | + + + + + Care Team Providers + +------+ + | Care Carpentry Teacher Name | Role | Phone | [...] | | Transplant Services | MD Emanuel [address] | Update (Evaluation | | | | [address] | [address] | Scheduled) | | | | Caro Chan [place], | [place], [place] | | | | | [place] [address] | [address] | | | | | [phone] | [phone] | | | | | | | [...] Denise | | | | | | [place] | | | | | | [address] | | | | | | [phone] | | | | | | | | +--------+ + + + + documented as of this encounter Visit Diagnoses Not on filedocumented in this encounter"
--- OUTSIDE RECORDS SUMMARY | ~2019-03-08 | XMS | Encounter Summary ---
Demographics + + + | Address | [address] | | | [place] [address] | + + + | Home Phone [...] Author | [facility] | | | and Josephana | + + + | Organization | [facility] | | | and Josephana [...] Providers + +------+ + | Care Police Officer Crime Prevention Name | Role | Phone | + [...] NEPHROLOGY [address] | M, DO [address] | | | | | [address] | [place] | | | | | [place], [place] | [place], [place] | | | | | [address] | [address] | | | | | [phone] | | | +--------+ + + + [...] DAVIDSON | | | | | | [place] [address] | | | | | | [phone] | | | | | | | | +--------+---------+ + + + documented as of this encounter Visit Diagnoses Not on filedocumented in this encounter"
--- OUTSIDE RECORDS SUMMARY | ~2019-03-08 | XMS | Encounter Summary ---
Demographics + + + | Address | [address] | | | [place] [address] | + + + | Home Phone [...] | | | | | [place] [address] | | + + + + + | Thania Mallory | ECON | [address] | | | | | [place] [address] | | + + + + + | Deidra Weldon | ECON | [address] | | | | | [place] | | | | | [address] | | + + + + + Care Team Providers + +------+ + | Care Warp Preparer Name | Role | Phone | [...] | | [address] | [facility] | referral) | | | | [facility] [facility], | [place], [place] | | | | | [place] [address] | [address] | | | | | [phone] | | | +--------+ + + + [...] [facility] | | | | | | [address] | | | | | | [phone] | | | | | | | | +--------+ + + + + documented as of this encounter Visit Diagnoses Not on filedocumented in this encounter"
--- OUTSIDE RECORDS SUMMARY | ~2019-03-08 | XMS | Encounter Summary ---
Demographics + + + | Address | [address] | | | [place] [address] | + + + | Home Phone [...] | Author | [facility] | | | and Josephana | + + + | Organization | [facility] | | | and [...] Team Providers + +------+ + | Care Coater Slate Name | Role | Phone | + +------+ + PCP | Unavailable | + +------+ + Encounter Details +--------+ + + + + | Date | Type | Department | Care Team | Description | +--------+ + + + + | 05/29/ | Hospital | [facility] | Conversion | End stage renal | | 2014 | Encounter | CENTER CV INTRA OP | Transaction, | disease (HCC) | | | | [address] | Provider Unknown | | | | | [place], [place] | [phone] | | | | | [address] | | | | | | [phone] | Natashakirit Darryn, | | | | | | MD [address] | | | | | | [place], [place] | | | | | | [address] | | | | | | | [...] DAV[place]SON | | | | | | [place] [address] | | | | | | [phone] | | | | | | | [...] EXTERNAL LAB | | Testing performed at [facility] [place] [place] [address];[place] [address] MRSA PCR | | | NEGATIVE Testing performed at | | | [address];[place] [address] | | + + + + +---------+ [...]
--- OUTSIDE RECORDS SUMMARY | ~2019-03-08 | XMS | Encounter Summary ---
Demographics + + + | Address | [address] | | | [place] [address] | + + + | Home Phone [...] [address] | | | | | [place] [address] | | + + + + + | Thania Mallory | ECON | [address] | | | | | [place] [address] | | + + + + + | Deidra Weldon | ECON | [address] | | | | | [place] | | | | | [address] | | + + + + + Care Team Providers + +------+ + | Care Veterinary Medicine Doctor Name | Role | Phone | + [...] [place] | [facility] | | | | | [address] [place], | [place], [place] | | | | | [place] [address] | [address] | | | | | [phone] | | | +--------+ + + + [...] | | | | | | [place], [place] | | | | | | [address] | | | | | | [phone] | | | | | | | | +--------+ + + + + documented as of this encounter Visit Diagnoses Not on filedocumented in this encounter"
--- OUTSIDE RECORDS SUMMARY | ~2019-03-08 | XMS | Encounter Summary ---
Demographics + + + | Address | [address] | | | [place] [address] | + + + | Home Phone [...] | Author | [facility] | | | and Josephana | + + + | Organization | [facility] [...] Team Providers + +------+ + | Care Specialist Field Engineer Name | Role | Phone | [...] | | stage renal | [address] | [address] [place] [address] | | | | | disease) | Shun Griffin | [address] [address] | | | | | ([facility]) | [address] | [address] [place] | | | | | Anemia in | [place], [place] | [place] | | | | | ESRD | [address] | [address] Phone: | | | | | (end-stage | Phone: | [phone] | | | | | renal | [phone] | Fax: | | | | | disease) | Fax: | [phone] | | | | | ([facility]) | [phone] | | | | | | Procedures [...] | | [address] | [place] | (Primary Dx); | | | | [place], [place] | [place], [place] | Secondary | | | | [address] | [address] | hyperparathyroidism | | | | [phone] | | ([facility]) | +--------+ + + [...] 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 Outpatient Prescriptions Marked as Taking for the [...] treatment will eventually subtract f rom her nursing home survival. I think that basically she needs [...] DAV[place]SON | | | | | | [place] [address] | | | | | | [phone] | | | | | | | [...]
--- OUTSIDE RECORDS SUMMARY | ~2019-03-08 | XMS | Encounter Summary ---
Demographics + + + | Address | [address] | | | [place] [address] | + + + | Home Phone [...] | Author | [facility] | | | and Josephana | + + + | Organization | [facility] | | [...] + +------+ + | Care Public Health Advisor Name | Role | Phone | + +------+ + PCP | Unavailable | + +------+ + Encounter Details +--------+ + + + + | Date | Type | Department | Care Team | Description | +--------+ + + + + | 08/21/ | Hospital | [facility] | Conversion | End stage renal | | 2015 | Encounter | CENTER CV INTRA OP | Transaction, | disease (HCC); | | | | [address] | Provider Unknown | Mechanical | | | | [place], [place] | [phone] | complication of | | | | [address] | | other vascular | | | | [phone] | Darryn Whaley, | device, implant, and | | | | | [address] | graft (HCC) | | | | | [address] [place], [place] | | | | | | [address] | | | | | | | [...] E | | | | | | [place] [address] | | | | | | [phone] | | | | | | | [...] venous anastomosis without incidence. | | | [address], [address], [address], [address] | | + + + + + [...] conscious sedation and | | | independent [place] [facility] supervision performed throughout the | | | [...] | | | needle and exchanged for 4-Mexican micropuncture sheath. Initial | | | fistula [...] | | needle and exchanged for 4 Mexican short sheath over 0.03, angled | | | Glidewire. Subsequently, Glidewire was exchanged for 0.014, mailman | | | wire over 4 Mexican angled glide catheter. Then, 4 mm x [...] adequate conscious sedation and independent | | [place] [facility] supervision performed throughout the procedure. PROCEDURE: Informed [...] micropuncture needle and exchanged | | for 4-Mexican micropuncture sheath. Initial fistula pressure was obtained [...] | micropuncture needle and exchanged for 4 Mexican short sheath over 0.03, angled | | Glidewire. Subsequently, Glidewire was exchanged for 0.014, mailman wire over 4 Mexican | | angled glide catheter. Then, 4 [...] arterial venous | | anastomosis without incidence. [address], [address], [address], [address] | | | | | |[address], [address], [address], [address] | | | | | + + [...] venous anastomosis without incidence. | | | [address], [address], [address], [address] | | + + + + + [...] conscious sedation and | | | independent [place] [facility] supervision performed throughout the | | | [...] | | | needle and exchanged for 4-Mexican micropuncture sheath. Initial | | | fistula [...] | | needle and exchanged for 4 Mexican short sheath over 0.03, angled | | | Glidewire. Subsequently, Glidewire was exchanged for 0.014, mailman | | | wire over 4 Mexican angled glide catheter. Then, 4 mm x [...] adequate conscious sedation and independent | | [place] [facility] supervision performed throughout the procedure. PROCEDURE: Informed [...] micropuncture needle and exchanged | | for 4-Mexican micropuncture sheath. Initial fistula pressure was obtained [...] | micropuncture needle and exchanged for 4 Mexican short sheath over 0.03, angled | | Glidewire. Subsequently, Glidewire was exchanged for 0.014, mailman wire over 4 Mexican | | angled glide catheter. Then, 4 [...] arterial venous | | anastomosis without incidence. [address], [address], [address], [address] | | | | | |[address], [address], [address], [address] | | | | | + + documented in this encounter Visit Diagnoses + + | Diagnosis | + + | End stage renal disease (HCC) End stage renal disease | + + | Mechanical complication of other vascular device, implant, and graft | + + documented in this encounter"
--- OUTSIDE RECORDS SUMMARY | ~2019-03-08 | XMS | Encounter Summary ---
Demographics + + + | Address | [address] | | | [place] [address] | + + + | Home Phone [...] Author | [facility] | | | and Josephana | + + + | Organization | [facility] [...] Providers + +------+ + | Care Auxiliary Powerplant Operator Name | Role | Phone | [...] | | | | 21) End | [place], [place] | [place], [place] | | | | | stage renal | [address] | [address] Phone: | | | | | disease | Phone: | [phone] | | | | | ([facility]) | [phone] | Fax: | | | | | Infection | Fax: | [phone] | | | | | and | [phone] | | | | | | inflammatory [...] | | [address] | [place] | (Primary Dx); | | | | [place], [place] | [place], [place] | Anemia in ESRD | | | | [address] | [address] | (end-stage renal | | | | [phone] | | disease) ([facility]) | +--------+ + + + + Social [...] that she is working very closely with [facility] for an LRD allograft from [...] candidate from her visits here at [facility]. 6. Anemia--Will need to hold the EPO until the Hb is < 11.0 g/dl, while rechecking the Hb weekly. Plan: 1. Will continue to follow her PTH quarterly without Hectorol Rx. 2. Hold the EPO as above, until the Hb is < 11.0 g/dl. 3. Will try to connect with her Transplant Collar Closer Lockstitch at [facility], about re lative timeline of her allograft date. 4. She will follow with Dr. Ibarra in 2 weeks. CC: [place] Fina Joy MD, [facility], [facility] documented in thi s encounter Plan [...] DAV[place]SON | | | | | | [place] [address] | | | | | | [phone] | | | | | | | [...]
--- OUTSIDE RECORDS SUMMARY | ~2019-03-08 | XMS | Encounter Summary ---
Demographics + + + | Address | [address] | | | [place] [address] | + + + | Home Phone [...] + | Author | [facility] | | | and Josephana | + + + | Organization | [facility] | | | [...] Team Providers + +------+ + | Care Fast Food Shift Supervisor Name | Role | Phone | + +------+ + PCP | Unavailable | + +------+ + Encounter Details +--------+ + + + + | Date | Type | Department | Care Team | Description | +--------+ + + + + | 07/10/ | Hospital | [facility] | | | | 2008 - | Encounter | MED CTR OP REHAB | | | | | | [address] | | | | 08/03/ | | [place] [address] | | | | 2008 | | [phone] | | | +--------+ + + + [...] DAVIDSON | | | | | | [place] [address] | | | | | | [phone] | | | | | | | | +--------+---------+ + + + documented as of this encounter Visit Diagnoses Not on filedocumented in this encounter"
--- OUTSIDE RECORDS SUMMARY | ~2019-03-08 | XMS | Encounter Summary ---
Demographics + + + | Address | [address] | | | [place] [address] | + + + | Home Phone [...] + | Author | [facility] | | | and [place]ana | + + + | Organization | [facility] [...] Providers + +------+ + | Care Logging Equipment Mechanic Name | Role | Phone | + +------+ + PCP | Unavailable | + +------+ + Encounter Details +--------+ + + + + | Date | Type | Department | Care Team | Description | +--------+ + + + + | 10/31/ | Hospital | [facility] | Conversion | ESRD (end stage | | 2015 | Encounter | CENTER CV INTRA OP | Transaction, | renal disease) on | | | | [address] | Provider Unknown | dialysis ([facility]) | | | | [place], [place] | [phone] | | | | | [address] | | | | | | [phone] | Colten Hutchins MD | | | | | | [address] | | | | | | [place], [place] | | | | | | [address] | | | | | | | [...] Note by Bev Carroll RN at 10/31/14 461 Author: Bev Carroll RN Service: Interventional Radiology Author Type: Registered Chantell e Filed: 10/31/14 3240 Date of Service: 10/31/141734 Status: Signed Marriage And Family Therapist: Bev Carroll RN (Registered Nurse) Sutures removed [...] Note by Bev Carroll RN at 10/31/14 5698 Author: Bev Carroll, RN Service: Interventional Radiology Author Type: Registered Chantell rse Filed: 10/31/141649 Date of Service: 10/31/141649 Status: Signed Marriage And Family Therapist: Bev Carroll RN (Registered Nurse) Attempted removal [...] [place] | | | | | | [place] [address] | | | | | | [phone] | | | | | | | [...] | | yesterday COMPARISON STUDIES: 10/28/2014 PRIMARY ANDROID DEVELOPER: | | | Colten Hutchins MD, PhD, [facility] OPERATIONS: 1. Ultrasound-guided | | | antegrade [...] | microsheath were both exchanged for 6 St Helenian sheaths. A catheter was | | | [...] yesterday | | COMPARISON STUDIES: 10/28/2014 PRIMARY ANDROID DEVELOPER: Colten Hutchins MD, PhD, RPVI | | [...] were both exchanged for 6 | | [place] Helenian sheaths. A catheter was advanced over a [...] | | yesterday COMPARISON STUDIES: 10/28/2014 PRIMARY ANDROID DEVELOPER: | | | Colten Hutchins MD, PhD, [facility] OPERATIONS: 1. Ultrasound-guided | | | antegrade [...] | microsheath were both exchanged for 6 St Helenian sheaths. A catheter was | | | [...] yesterday | | COMPARISON STUDIES: 10/28/2014 PRIMARY ANDROID DEVELOPER: Colten Hutchins MD, PhD, RPVI | | [...] were both exchanged for 6 | | [place] Helenian sheaths. A catheter was advanced over a [...] | | yesterday COMPARISON STUDIES: 10/28/2014 PRIMARY ANDROID DEVELOPER: | | | Colten Hutchins MD, PhD, [facility] OPERATIONS: 1. Ultrasound-guided | | | antegrade [...] | microsheath were both exchanged for 6 St Helenian sheaths. A catheter was | | | [...] yesterday | | COMPARISON STUDIES: 10/28/2014 PRIMARY ANDROID DEVELOPER: Colten Hutchins MD, PhD, RPVI | | [...] were both exchanged for 6 | | St Helenian sheaths. A catheter was advanced over a [...] | | yesterday COMPARISON STUDIES: 10/28/2014 PRIMARY ANDROID DEVELOPER: | | | Colten Hutchins MD, PhD, [facility] OPERATIONS: 1. Ultrasound-guided | | | antegrade [...] | microsheath were both exchanged for 6 St Helenian sheaths. A catheter was | | | [...] yesterday | | COMPARISON STUDIES: 10/28/2014 PRIMARY ANDROID DEVELOPER: Colten Hutchins MD, PhD, RPVI | | [...] were both exchanged for 6 | | [place] Helenian sheaths. A catheter was advanced over a [...]
--- OUTSIDE RECORDS SUMMARY | ~2019-03-08 | XMS | Encounter Summary ---
Demographics + + + | Address | [address] | | | [place] [address] | + + + | Home Phone [...] | | | | | [place] [address] | | + + + + + | Thania Mallory | ECON | [address] | | | | | [place] [address] | | + + + + + | Deidra Weldon | ECON | [address] | | | | | [place] | | | | | [address] | | + + + + + Care Team Providers + +------+ + | Care Carpenter And Joiner Name | Role | Phone | + [...] | | | | | [place], | | | | | | [place] [address] | | | +--------+ + + + [...] Denise | | | | | | [place], [place] | | | | | | [address] | | | | | | [phone] | | | | | | | [...] [facility] - | [address] | [place] [address] | | | IMMUNOGENETICS/TRANS | [address] [...] [facility] - | [address], | [place] [address] | | | IMMUNOGENETICS/TRANS | [address] [...] [facility] - | [address] | [place] [address] | | | IMMUNOGENETICS/TRANS | [address] | | | | [facility]ANT [facility] | | | | + + + + + documented in this encounter Visit Diagnoses + + | Diagnosis | + + | End stage renal disease (HCC) End stage renal disease | + + documented in this encounter"
--- OUTSIDE RECORDS SUMMARY | ~2019-03-08 | XMS | Encounter Summary ---
Demographics + + + | Address | [address] | | | [place] [address] | + + + | Home Phone [...] | | | | | [place] [address] | | + + + + + | Thania Mallory | ECON | [address] | | | | | [place] [address] | | + + + + + | Deidra Weldon | ECON | [address] | | | | | [place] | | | | | [address] | | + + + + + Care Team Providers + +------+ + | Care Detailer Furniture Name | Role | Phone | + [...] Elias | [facility] | | | | | [address], | [place], [place] | | | | | [place] [address] | [address] | | | | | [phone] | | | +--------+ + + + [...] Denise | | | | | | [place], [place] | | | | | | [address] | | | | | | [phone] | | | | | | | | +--------+ + + + + documented as of this encounter Visit Diagnoses Not on filedocumented in this encounter"
--- OUTSIDE RECORDS SUMMARY | ~2019-03-08 | XMS | Encounter Summary ---
Demographics + + + | Address | [address] | | | [place] [address] | + + + | Home Phone [...] | | | | | [place] [address] | | + + + + + | Thania Mallory | ECON | [address] | | | | | [place] [address] | | + + + + + | Deidra Weldon | ECON | [address] | | | | | [place] | | | | | [address] | | + + + + + Care Team Providers + +------+ + | Care Annual Giving Director Name | Role | Phone | [...] | | | [address] | [place] | | | | | [place], | [place], [place] | | | | | [place] [address] | [address] | | | | | [phone] | [phone] | | | | | | | [...] Denise | | | | | | [place], [place] | | | | | | [address] | | | | | | [phone] | | | | | | | | +--------+ + + + + documented as of this encounter Visit Diagnoses Not on filedocumented in this encounter"
--- OUTSIDE RECORDS SUMMARY | ~2019-03-08 | XMS | Encounter Summary ---
Demographics + + + | Address | [address] | | | [place] [address] | + + + | Home Phone [...] | | | | | [place] [address] | | + + + + + | Thania Mallory | ECON | [address] | | | | | [place] [address] | | + + + + + | Deidra Weldon | ECON | [address] | | | | | [place] | | | | | [address] | | + + + + + Care Team Providers + +------+ + | Care Roofing Plant Supervisor Name | Role | Phone [...] Griffin | | | | | [address] | [place], | | | | | [place], | [place] [address] | | | | | [place] [address] | [phone] | | | | | | | [...] Denise | | | | | | [place], [place] | | | | | | [address] | | | | | | [phone] | | | | | | | [...] [facility] - | [address] | [place] [address] | | | IMMUNOGENETICS/TRANS | [address] | | | | PLANT LABORATORY | | | | + + + + + documented in this encounter Visit Diagnoses Not on filedocumented in this encounter"
--- OUTSIDE RECORDS SUMMARY | ~2019-03-08 | XMS | Encounter Summary ---
Demographics + + + | Address | [address] | | | [place] [address] | + + + | Home Phone [...] | Author | [facility] | | | and Josephana | + + + | Organization | [facility] [...] Providers + +------+ + | Care Roll Tender Name | Role | Phone | + +------+ + | Jonathan Alonso MD | PCP | | + +------+ + Encounter Details +--------+ + + + + | Date | Type | Department | Care Team | Description | +--------+ + + + + | 03/27/ | Orders Only | [facility] | Rik Siomn MD | | | 2014 | | VASCULAR SURGERY | [address] | | | | | [address]TR[address] | [place], [place] | | | | | [place] | [address] | | | | | [place], [place] | [phone] | | | | | [address] | | | | | | [phone] | | | +--------+ + + + [...] DAVIDSON | | | | | | [place] [address] | | | | | | [phone] | | | | | | | [...]
--- OUTSIDE RECORDS SUMMARY | ~2019-03-08 | XMS | Encounter Summary ---
Demographics + + + | Address | [address] | | | [place] [address] | + + + | Home Phone [...] | | | | | [place] [address] | | + + + + + | Thania Mallory | ECON | [address] | | | | | [place] [address] | | + + + + + | Deidra Weldon | ECON | [address] | | | | | [place] | | | | | [address] | | + + + + + Care Team Providers + +------+ + | Care Template Storage Clerk Name | Role | Phone | [...] | Nephrology at | MD Emanuel [address] [facility] | | | | | [place] | [facility] | | | | | [facility] | [place], [place] | | | | | [address] | [address] | | | | | Mailcode: DCAnna | [phone] | | | | | Alexander | | | | | | [place], [place] | | | | | | [address] | | | | | | [phone] | | | +--------+--------+ + + + [...] Denise | | | | | | [place], [place] | | | | | | [address] | | | | | | [phone] | | | | | | | | +--------+ + + + + documented as of this encounter Visit Diagnoses Not on filedocumented in this encounter"
--- OUTSIDE RECORDS SUMMARY | ~2019-03-08 | XMS | Encounter Summary ---
Demographics + + + | Address | [address] | | | [place] [address] | + + + | Home Phone [...] Author | [facility] | | | and Josephana | + + + | Organization | [facility] | | [...] Providers + +------+ + | Care Certified Genetic Counselor Name | Role | Phone | [...] RN | | | | | [address] [facility] [address] | | | | | | [place] | | | | | | [address] | | | | | | [phone] | | | +--------+ + + + [...] DAVIDSON | | | | | | [place] [address] | | | | | | [phone] | | | | | | | | +--------+---------+ + + + documented as of this encounter Visit Diagnoses Not on filedocumented in this encounter"
--- OUTSIDE RECORDS SUMMARY | ~2019-03-08 | XMS | Encounter Summary ---
Demographics + + + | Address | [address] | | | [place] [address] | + + + | Home Phone [...] Author | [facility] | | | and Josephana | + + + | Organization | [facility] | | [...] Team Providers + +------+ + | Care Combiner Operator Name | Role | Phone | [...] Closed | | Nephrology | Diagnoses | Rfuino, | Conrado, | | | | | ESRD (end | Sudhakar Castellanos, | Jorje Obrien DO | | | | | stage renal | [address] | [address] [place] [address] | | | | | disease) | Shun Griffin | [place] Gotti | | | | | ([facility]) | [address] | [address] [place] | | | | | Anemia in | [place], [place] | [place] | | | | | ESRD | [address] | [address] Phone: | | | | | (end-stage | Phone: | [phone] | | | | | renal | [phone] | Fax: | | | | | disease) | Fax: | [phone] | | | | | ([facility]) | [phone] | | | | | | Procedures [...] | | [address] | [place], [address] | (Primary Dx) | | | | [place], [place] | [place], [place] | | | | | [address] | [address] | | | | | [phone] | | | +--------+ + + + [...] uding the charge nurse, staff nurses, PCT's, chemical worker, dietitian myself she fails to heed [...] today in Plan: 1. Will continue to director counseling bureau her about her high risk for cardiovascular morbidity and compl ications given her lack of full compliance with her treatment. 2. The renal INDUSTRIAL ELECTRICIAN has been attempting to reach her. [...] DAVIDSON | | | | | | [place] [address] | | | | | | [phone] | | | | | | | | +--------+---------+ + + + documented as of this encounter Visit Diagnoses + + | Diagnosis | + + | ESRD (end stage renal disease) (HCC) - Primary End stage renal disease | + + documented in this encounter"
--- OUTSIDE RECORDS SUMMARY | ~2019-03-08 | XMS | Encounter Summary ---
Demographics + + + | Address | [address] | | | [place] [address] | + + + | Home Phone [...] | | | | | [place] [address] | | + + + + + | Thania Mallory | ECON | [address] | | | | | [place] [address] | | + + + + + | Deidra Weldon | ECON | [address] | | | | | [place] | | | | | [address] | | + + + + + Care Team Providers + +------+ + | Care Dehydrator Tender Name | Role | Phone | [...] Evaluation | | | | [address] [place], | [place], [place] | | | | | [place] [address] | [address] | | | | | [phone] | | | +--------+ + + + [...] Denise | | | | | | [place] | | | | | | [address] | | | | | | [phone] | | | | | | | | +--------+ + + + + documented as of this encounter Visit Diagnoses Not on filedocumented in this encounter"
--- OUTSIDE RECORDS SUMMARY | ~2019-03-08 | XMS | Encounter Summary ---
Demographics + + + | Address | [address] | | | [place] [address] | + + + | Home Phone [...] | | | | | [place] [address] | | + + + + + | Thania Mallory | ECON | [address] | | | | | [place] [address] | | + + + + + | Deidra Weldon | ECON | [address] | | | | | [place] | | | | | [address] | | + + + + + Care Team Providers + +------+ + | Care Culinary Director Name | Role | Phone | [...] | | | MD [address] | [address] | | | | | | Keven | Mailcode: | | | | | | Hospital | [facility] | | | | | | [address] | [place] | | | | | | [address] | [place], [place] | | | | | | [place] | [address] | | | | | | [place] | Phone: | | | | | | [address] | [phone] | | | | | | Phone: | | | | | | | [phone] | | | | | | | Fax: | | | | | | | [phone] | | +--------+--------+ + + + + Encounter Details +--------+---------+ + + + | Date | Type | Department | Care Team | Description | +--------+---------+ + + + | 08/17/ | Office | Specialty Clinics | Sudhakar Joy | Anemia of chronic | | 2016 | Visit | at [facility] [address] | DMD [address] [facility] | kidney failure, | | | | [place] Mailcode: | [address] | stage 5 (HCC) | | | | [facility] [address] | [place], [place] | (Primary Dx); HSP | | | | [place] | [address] | (Jada[place]Schmanueln | | | | [address] | [phone] | purpura) nephritis | | | | [phone] | | | +--------+---------+ + + + [...] good. She has moved into a new [facility]. She has collected enough money to [...] [address] Mail code [facility] [place], [place] [address] documented in this encounter Plan of Treatment [...] [place] | | | | | | [address] | | | | | | [phone] | | | | | | | [...]
--- OUTSIDE RECORDS SUMMARY | ~2019-03-08 | XMS | Encounter Summary ---
Demographics + + + | Address | [address] | | | [place] [address] | + + + | Home Phone [...] | | | | | [place] [address] | | + + + + + | Thania Mallory | ECON | [address] | | | | | [place] [address] | | + + + + + | Deidra Weldon | ECON | [address] | | | | | [place] | | | | | [address] | | + + + + + Care Team Providers + +------+ + | Care Dispatcher Tow Truck Name | Role | Phone | [...] lab/Provider | | | | [place], | [place], [place] | updated) | | | | [place] [address] | [address] | | | | | [phone] | [phone] | | | | | | | [...] Denise | | | | | | [place], [place] | | | | | | [address] | | | | | | [phone] | | | | | | | | +--------+ + + + + documented as of this encounter Visit Diagnoses Not on filedocumented in this encounter"
--- OUTSIDE RECORDS SUMMARY | ~2019-03-08 | XMS | Encounter Summary ---
Demographics + + + | Address | [address] | | | [place] [address] | + + + | Home Phone [...] | Author | [facility] | | | and [place]ana | + + + | Organization | [facility] [...] Team Providers + +------+ + | Care Pulpit Operator Name | Role | Phone | + +------+ + PCP | Unavailable | + +------+ + Encounter Details +--------+---------+ + + + | Date | Type | Department | Care Team | Description | +--------+---------+ + + + | 07/10/ | E-Visit | [facility] | Jorje Camp | | | 2017 | | NEPHROLOGY [address] | M, DO [address] | | | | | [address] | [place] | | | | | [place], [place] | [place], [place] | | | | | [address] | [address] | | | | | [phone] | | | +--------+---------+ + + + [...] | | | | | | [place] [address] | | | | | | [phone] | | | | | | | | +--------+---------+ + + + documented as of this encounter Visit Diagnoses + + | Diagnosis | + + | ESRD (end stage renal disease) (HCC) - Primary End stage renal disease | + + documented in this encounter"
--- OUTSIDE RECORDS SUMMARY | ~2019-03-08 | XMS | Encounter Summary ---
Demographics + + + | Address | [address] | | | [place] [address] | + + + | Home Phone [...] Author | [facility] | | | and Josephana | + + + | Organization | [facility] | | [...] Providers + +------+ + | Care Pharmacy Stock Clerk Name | Role | Phone [...] | | | DEPARTMENT [address] [place] | [address] | [place] [address] | | | | | [place], [place] | [phone] | | | | | [address] | | | | | | [phone] | | | +--------+ + + + [...] DAVIDSON | | | | | | [place] [address] | | | | | | [phone] | | | | | | | | +--------+---------+ + + + documented as of this encounter Visit Diagnoses Not on filedocumented in this encounter"
--- OUTSIDE RECORDS SUMMARY | ~2019-03-08 | XMS | Encounter Summary ---
Demographics + + + | Address | [address] | | | [place] [address] | + + + | Home Phone [...] | | | | | [place] [address] | | + + + + + | Thania Mallory | ECON | [address] | | | | | [place] [address] | | + + + + + | Deidra Weldon | ECON | [address] | | | | | [place] | | | | | [address] | | + + + + + Care Team Providers + +------+ + | Care Building Maintenance Supervisor Name | Role | Phone | [...] Visit | Services Inpatient | [address] [facility] | disease, stage V | | | | [address] [facility] | [facility] | (HCC) (Primary Dx) | | | | [address] | [place], [place] | | | | | Mailcode: [facility] | [address] | | | | | [place], [place] | [phone] | | | | | [address] | | | | | | [phone] | | | +--------+---------+ + + + [...] a nutrition perspective. Argentina Mehta, MS, RD, MERCHANDISING LEAD, LD documented in this e ncounter Plan of Treatment +--------+ + + + + | Date | Type | Specialty | Care Team | Description | +--------+ + + + + | 05/04/ | Hospital | Adult Acute Care | El Starr MD | | | 2022 | Encounter | | [address] | | | | | | [place], [place] | | | | | | [address] | | | | | | [phone] | | | | | | | | +--------+ + + + + documented as of this encounter Procedures + +--------+ + + + | Procedure Name | Priori | Date/Time | Associated Diagnosis | Comments | | | ty | | | | + +--------+ + + + | DE MNT INITIAL | Routin | 12/21/2012 | [...]
--- OUTSIDE RECORDS SUMMARY | ~2019-03-08 | XMS | Encounter Summary ---
Demographics + + + | Address | [address] | | | [place] [address] | + + + | Home Phone [...] | [facility] | | | and [place]ana | + + + | Organization | [facility] | | [...] Providers + +------+ + | Care Needle Control Cheniller Name | Role | Phone | + [...] NEPHROLOGY [address] | MD [address] | (Asymptomatic) | | | | [address] | [address] [place] | | | | | [place], [place] | [place] [address] | | | | | [address] | [phone] | | | | | [phone] | | | +--------+ + + + [...] AM PDTHEMO progress note manually faxed to [facility] [place], e-faxed to [facility] Pediatric Nephrology on 08/04 03/19. 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 Anemia in ESRD (end-stage renal disease) (HCC) [...] donor. Pt has been referred t o [facility]. 9. Peritonitis, MSSA. On Keflex. [facility] [place] [address] Lianna Joy, [facility] Pediatric Nephrology documented in this encounter Plan [...] DAV[place]SON | | | | | | [place] [address] | | | | | | [phone] | | | | | | | | +--------+---------+ + + + documented as of this encounter Visit Diagnoses + + | Diagnosis | + + | ESRD (end stage renal disease) (HCC) - Primary End stage renal disease | + + | Anemia in ESRD (end-stage renal disease) ([facility]) Anemia in chronic kidney disease | + + | Secondary hyperparathyroidism (HCC) Secondary hyperparathyroidism (of renal origin) | + + | Peritonitis, dialysis-associated, initial encounter (HCC) | + + documented in this encounter"
--- OUTSIDE RECORDS SUMMARY | ~2019-03-08 | XMS | Encounter Summary ---
Demographics + + + | Address | [address] | | | [place] [address] | + + + | Home Phone [...] [facility] | | | and Josephana | + + + | Organization | [facility] [...] Providers + +------+ + | Care Jewelry Appraiser Name | Role | Phone | [...] | | [address] | [place] | | | | | [place], [place] | [place], [place] | | | | | [address] | [address] | | | | | [phone] | | | +--------+--------+ + + + [...] | | | | | [place] [address] | | | | | | [phone] | | | | | | | | +--------+---------+ + + + documented as of this encounter Visit Diagnoses Not on filedocumented in this encounter"
--- OUTSIDE RECORDS SUMMARY | ~2019-03-08 | XMS | Encounter Summary ---
Demographics + + + | Address | [address] | | | [place] [address] | + + + | Home Phone [...] + | Author | [facility] | | | and Josephana | + + + | Organization | [facility] | | [...] Providers + +------+ + | Care Glass Inspector Name | Role | Phone | [...] + + | 01/23/ | Hospital | [facility] | Vivek Teran, | SOB (shortness of | | 2019 - | Encounter | [facility] | MD Brooks [address] | breath) (Primary | | | | CARE [address]LO[address] | [place] [address] | Dx); ESRD needing | | 01/26/ | | [address] | [phone] | dialysis ([facility]); | | 2019 | | [place], [place] | | Chronic pleural | | | | [address] | Omar Hatch MD [address] | effusion; | | | | [phone] | [address] | Noncompliance with | | | | | [place] [address] | renal dialysis | | | | | [phone] | ([facility]); Acute | | | | | | respiratory | | | | | Sotero Reinoso MD | distress; Anemia in | | | | | [address] | ESRD (end-stage | | | | | [place], [place] | renal disease) | | | | | [address] | ([facility]); At high risk | | | | | | for electrolyte | | | | | Usha Martínez MD | imbalance; ESRD on | | | | | [address] | hemodialysis ([facility]); | | | | | [place] [address] | Hyperphosphatemia; | | | | | [phone] | Noncompliance; | | | | | [...] note might be different from pierre coleman. [facility] Service: Hospitalist Discharge Summary Date of [...] CHEST AP PORTABLE (01/07/2019); CHEST TWO VIEWS 88637 (01/06/2019); XR CHEST AP PORTABLE (12/13/2018); FINDINGS: [...] CHEST AP PORTABLE (01/07/2019); CHEST TWO VIEWS 76192 (01/06/2019); FINDINGS: Mild cardiomegaly. No pneumothorax. Interstitial [...] Confirmed by MUSE READ ONLY, -COMPUTER ([id number]), marketing editor Daniela Luciano ([id number]) on 01/24/2019 5:16: 19 [...] to Gram-positive bacteria 12/12/2018 Clotted dialysis access ([facility]) 2014 Congestive heart failure (HCC) ESRD (end stage renal disease) (HCC) HSP (Henoch-Schonlein purpura) nephritis ([facility]) 1987 Hypertension Pericardial effusion without cardiac tamponade 11/07/2018 Past Surgical History: Procedure Laterality Date ABDOMEN SURGERY AV FISTULA REPAIR 02/24/2014 LEFT Radical Cephalic Fistula Creation; Laterality: Left; Surgeon: Blake Chavarria MD ; Location: [facility] MAIN OR AV FISTULA REPAIR Left 03/07/2014 Procedure: AV FISTULA - GRAFT REPAIR/REVISION; Surgeon: Rik Simon MD; Location: [facility] OR; Service: Vascular; Laterality: Left; biopsy of kidney age 10 DIALYSIS FISTULA CREATION 04/08/2014 Procedure: DIALYSIS CATHETER - INSERTION; Surgeon: Rik Simon MD; Location: [facility] ; Service: Vascular; Laterality: N/A; tunneled catheter.br hemodialysis catheter KIDNEY BIOPSY Left 2003 OTHER SURGICAL HISTORY LAPAROSCOPIC PERITONEAL DIALYSIS CATHETER INSERTION - x2 OTHER SURGICAL HISTORY Right 07/2013 LAPAROSCOPIC PERITONEAL DIALYSIS CATHETER INSERTION - current dialysis access MWF dialysis OTHER SURGICAL HISTORY Left 06/24/2014 SUPERFICIALIZATION OF AV FISTULA - Procedure: AV FISTULA - SUPERFICIALIZATION; Surgeon: Emanuel Simon MD; Location: [facility] OR; Service: Vascular; Laterality: Left; OTHER SURGICAL HISTORY Left 04/08/2014 AV FISTULA PLACEMENT - Procedure: AV FISTULA; Surgeon: Rik Simon MD; Location: [facility]; Service: Vascular; Laterality: Left; cephalic OTHER SURGICAL HISTORY Left 03/07/2014 DECLOT GRAFT - Procedure: GRAFT - DECLOT; Surgeon: Rik Simon MD; Location: [facility] OR ; Service: Vascular; Laterality: Left; [...] file. Follow up: Jonathan C Gavin, MD [address] [address] Schedule an appointment as soon as possible [...] disease) ([facility]) | protocol | | | | [...] Chronic pleural effusion [J90] Recommendations: No acute THERMAL TECHNICIAN indication Management of the right pleural effusion [...] case before the time of this encounter. eRné Anguiano MD Kika Mcdaniels RN - 01/24/2019 [...] PRN hydralazine. Pt also co [facility] at [facility] site for which she i s [...] [address] | | | | | | [place] [address] | | | | | | [phone] | | | | | | | [...] R?MRN: | | | | | | [id number] | | | [id number] | | | riteri | | | [...] | | | St. | | | [place] | | | y | | | [...] | | | St. | | | [place] | | | y | | | [...] | | | St. | | | [place] | | | y | | | [...] | | | St | | | [place] | | | y | | | [...] St | | | | | | [place] | | | y | | | [...] | | | St. | | | [place] | | | y | | | [...] | | | St. | | | [place] | | | y H. | | [...] | | | St. | | | [place] | | | y H. | | [...] | | | St. | | | [place] | | | y H. | | [...] | | | St. | | | [place] | | | y H. | | [...] | | | St. | | | [place] | | | y H. | | [...] | | | St. | | | [place] | | | y H. | | [...] | | | MD | | | Investigation Division Captain | | | al | | | [...] | | | [id number] | | | [id number] | | | eb | | | [...] [facility] | | | | performed at [facility], [address] | | LABORATORY | | | | [address], | | | | | | [place] [address] | | | | + + + + + + + + | Specimen | + + | | + + + + + + + | Performing | Address | City/State/Zipcode | Phone Number | | Organization | | | | + + + + + | [facility] | [address] | [place] [address] | [phone] | + + + + + CBC [...] [facility] | | | | performed at [facility], [address] | | LABORATORY | | | | [address], | | | | | | [place] [address] | | | | + + + + + + + + | Specimen | + + | | + + + + + + + | Performing | Address | City/State/Zipcode | Phone Number | | Organization | | | | + + + + + | [facility] | [address] | [place] [address] | [phone] | + + + + + Renal [...] | | | | | performed at [facility], [address] | | | | | | [facility] ([place], [place]), | | | | | | [place] [address] | | | | + + + + + + + + | Specimen | + + | Blood | + + + + + + + | Performing | Address | City/State/Zipcode | Phone Number | | Organization | | | | + + + + + | [facility] | [address] | [place] [address] | [phone] | + + + + + HEMODIALYSIS [...] [R06.02] | | | ESRD needing dialysis ([facility]) [N18.6, Z99.2] Chronic pleural effusion | | [...] Testing | 1.7 - 2.4 mg/dL | [facility] | | | | performed at [facility], [address] | | LABORATORY | | | | [address], | | | | | | [place] [address] | | | | + + + + + + + + | Specimen | + + | | + + + + + + + | Performing | Address | City/State/Zipcode | Phone Number | | Organization | | | | + + + + + | [facility] | [address] | [place] [address] | [phone] | + + + + + CBC [...] [facility] | | | | performed at [facility], [address] | | LABORATORY | | | | [address], | | | | | | [place] [address] | | | | + + + + + + + + | Specimen | + + | | + + + + + + + | Performing | Address | City/State/Zipcode | Phone Number | | Organization | | | | + + + + + | [facility] | [address] | [place] [address] | [phone] | + + + + + Renal [...] 7 (L)Comment: GFR <60: | >60 | [facility] | | | GFR | CHRONIC KIDNEY [...] | | | | | | MDRD IDKY traceable | | | | | | equation.Testing | | | | | | performed at [facility], [address] | | | | | | [facility] ([place], [place]), | | | | | | [place] [address] | | | | + + + + + + + + | Specimen | + + | Blood | + + + + + + + | Performing | Address | City/State/Zipcode | Phone Number | | Organization | | | | + + + + + | [facility] | [address] | [place] [address] | [phone] | + + + + + Iron [...] | | | Saturation | performed at [facility], [address] | | LABORATORY | | | | [address], | | | | | | [place] [address] | | | | + + + + + + + + | Specimen | + + | Blood | + + + + + + + | Performing | Address | City/State/Zipcode | Phone Number | | Organization | | | | + + + + + | [facility] | [address] | [place] [address] | [phone] | + + + + + Ferritin (01/24/2019 5:53 AM PST) + + + + + + | Component | Value | Ref Range | Performed | Pathologist | | | | | At | Signature | + + + + + + | Ferritin | 805 (H)Comment: Testing | 6 - 170 ng/mL | [facility] | | | | performed at [facility], [address] | | LABORATORY | | | | [address], | | | | | | [place] [address] | | | | + + + + + + + + | Specimen | + + | Blood | + + + + + + + | Performing | Address | City/State/Zipcode | Phone Number | | Organization | | | | + + + + + | [facility] | [address] | [place] [address] | [phone] | + + + + + Creatine [...] Court, | | | | | | [facility] [address] | | | | + + + + + + | CK-MB | 0Comment: Testing | 0 - 3 % | [facility] | | | | performed by [facility], | | LABORATORY | | | | [address], | | | | | | [facility] [address] | | | | + + + + + + | CK-BB | 0Comment: Testing | 0 % | [facility] | | | | performed by [facility], | | LABORATORY | | | | [address], | | | | | | [facility] [address] | | | | + + + + + + | CK, Total | 156Comment: Testing | 24 - 173 U/L | [facility] | | | | performed at [facility], | | LABORATORY | | | | [address], | | | | | | [place] [address] | | | | + + + [...] [address], | | | | | | [place] [address] | | | | + + + + + + + + | Specimen | + + | Blood | + + + + + + + | Performing | Address | City/State/Zipcode | Phone Number | | Organization | | | | + + + + + | [facility] | [address] | [place] [address] | [phone] | + + + + + Phosphorus (01/24/2019 5:53 AM PST) + + + + + + | Component | Value | Ref Range | Performed | Pathologist | | | | | At | Signature | + + + + + + | Phosphorus | 8.6 (H)Comment: Testing | 2.3 - 4.8 mg/dL | [facility] | | | | performed at [facility], [address] | | LABORATORY | | | | [address], | | | | | | [place] [address] | | | | + + + + + + + + | Specimen | + + | Blood | + + + + + + + | Performing | Address | City/State/Zipcode | Phone Number | | Organization | | | | + + + + + | [facility] | [address] | [place] [address] | [phone] | + + + + + Magnesium (01/24/2019 5:53 AM PST) + + + + + + | Component | Value | Ref Range | Performed | Pathologist | | | | | At | Signature | + + + + + + | Magnesium | 2.6 (H)Comment: Testing | 1.7 - 2.4 mg/dL | [facility] | | | | performed at [facility], [address] | | LABORATORY | | | | [address], | | | | | | [place] [address] | | | | + + + + + + + + | Specimen | + + | Blood | + + + + + + + | Performing | Address | City/State/Zipcode | Phone Number | | Organization | | | | + + + + + | [facility] | [address] | [place] [address] | [phone] | + + + + + Basic [...] | | | | | performed at [facility], [address] | | | | | | [facility] ([place], [place]), | | | | | | [place] [address] | | | | + + + + + + + + | Specimen | + + | Blood | + + + + + + + | Performing | Address | City/State/Zipcode | Phone Number | | Organization | | | | + + + + + | [facility] | [address] | [place] [address] | [phone] | + + + + + CBC [...] | | | | | | at [facility], [address] | | | | | | [employer], | | | | | | [place] [address] | | | | | |Testing performed at [facility], [address] [facility], [place] [address] | | | | | | | | | | + + +---- + + + + + | Specimen | + + | Blood | + + + + + + + | Performing | Address | City/State/Zipcode | Phone Number | | Organization | | | | + + + + + | [facility] | [address] | [place] [address] | [phone] | + + + + + Troponin I (01/24/2019 5:53 AM PST) + + + + + + | Component | Value | Ref Range | Performed | Pathologist | | | | | At | Signature | + + + + + + | Troponin I | 0.228 (H)Comment: 0.04 | 0.00 - 0.04 | [facility] | | | | ng/mL or less [...] | | | | | | [facility];[address] | | | | | | vd;[place] [address] | | | | + + + + + + + + | Specimen | + + | Blood | + + + + + + + | Performing | Address | City/State/Zipcode | Phone Number | | Organization | | | | + + + + + | [facility] | [address] | [place] [address] | [phone] | + + + + + XR [...] CHEST AP PORTABLE (01/07/2019); CHEST TWO VIEWS 45271 (01/06/2019); | | | FINDINGS: Mild cardiomegaly. [...] PORTABLE (01/07/2019); CHEST | | TWO VIEWS 52269 (01/06/2019); | | | | FINDINGS: | [...] (H)Comment: | 0 - 100 pg/mL | [facility] | | | | Testing performed at | | LABORATORY | | | | [facility];[address] [place] [address] | | | | | | Blvd;[place] [address] | | | | + + + + + + + + | Specimen | + + | Blood | + + + + + + + | Performing | Address | City/State/Zipcode | Phone Number | | Organization | | | | + + + + + | [facility] | [address] | [place] [address] | [phone] | + + + + + Phosphorus (01/23/2019 11:26 PM PST) + + + + + + | Component | Value | Ref Range | Performed | Pathologist | | | | | At | Signature | + + + + + + | Phosphorus | 7.9 (H)Comment: Testing | 2.3 - 4.8 mg/dL | [facility] | | | | performed at [facility];[address] | | LABORATORY | | | | [address];[place], [place] | | | | | | [address] | | | | + + + + + + + + | Specimen | + + | Blood | + + + + + + + | Performing | Address | City/State/Zipcode | Phone Number | | Organization | | | | + + + + + | [facility] | [address] | [place] [address] | [phone] | + + + + + Troponin I (01/23/2019 11:26 PM PST) + + + + + + | Component | Value | Ref Range | Performed | Pathologist | | | | | At | Signature | + + + + + + | Troponin I | 0.169 (H)Comment: 0.04 | 0.00 - 0.04 | [facility] | | | | ng/mL or less [...] | | | | | | [facility];[address] | | | | | | [facility];[place] [address] | | | | + + + + + + + + | Specimen | + + | Blood | + + + + + + + | Performing | Address | City/State/Zipcode | Phone Number | | Organization | | | | + + + + + | [facility] | [address] | [place] [address] | [phone] | + + + + + Comprehensive [...] | | | | performed at [facility];[address] | | | | | | [facility];[place], [place] | | | | | | [address] | | | | + + + + + + + + | Specimen | + + | Blood | + + + + + + + | Performing | Address | City/State/Zipcode | Phone Number | | Organization | | | | + + + + + | [facility] | [address] | [place] [address] | [phone] | + + + + + CBC [...] | LABORATORY | | | | [facility];[address] [place] [address] | | | | | | Blvd;[place] [address] | | | | + + + + + + + + | Specimen | + + | Blood | + + + + + + + | Performing | Address | City/State/Zipcode | Phone Number | | Organization | | | | + + + + + | [facility] | [address] | [place] [address] | [phone] | + + + + + XR [...] (01/07/2019); CHEST TWO | | | VIEWS 43467 (01/06/2019); XR CHEST AP PORTABLE (12/13/2018); | [...] CHEST AP PORTABLE (01/07/2019); CHEST TWO VIEWS 83203 (01/06/2019); XR | | CHEST AP PORTABLE [...] | | | | | ONLY, -COMPUTER (617), | | | | | | marketing editor Daniela Luciano | | | | [...] correct | | | patient, procedure, equipment, application support administrator and site/side marked as | | | [...] space: 6th Puncture method: | | | amdo-fie-pirpjl catheter Number of attempts: 1 Drainage amount: [...] | | | | | | | [facility] 01/24/19 at 0305 | | | [...] | | | | | dose on [facility] 01/24/19 at 0900 | | AM [...] | | | | | | Starting [facility] 01/24/19 at 0304 | | | [...] | | Arm | | Intravenous, ONCE, [facility] 01/24/19 | | AM PST | | | | | at 0125, For 1 dose | | | | | | + +-------+ +--------+---+--------+ +---+---+ | | | +---+---+ + +-------+ +--------+---+---+ | HYDROmorphone (DILAUDID) | Given | 01/25/20 | 0.5 mg | | | | injection 0.5 mg 0.5 mg, | | 19 1:13 | | | | | Intravenous, ONCE, [facility] 01/24/19 | | PM PST | | | | | at 1215, For 1 dose | | | | | | + +-------+ +--------+---+---+ +---+---+ | | | +---+---+ + +-------+ +------+---+---+ | HYDROmorphone (DILAUDID) | Given | 01/25/20 | 1 mg | | | | injection 1 mg 1 mg, | | 19 4:20 | | | | | Intravenous, ONCE, [facility] 01/24/19 | | AM PST | [...] 19 1:46 | | | | | [facility] 01/24/19 at 0030, For 1 dose [...] PST | | | | | Starting [facility] 01/24/19 at 0355, | | | [...] 19 2:47 | | | | | [facility] 01/24/19 at 0240, For 1 dose [...] nonresponsive to | | | Tylenol, Starting [facility] 01/24/19 at | | | 1409 [...]
--- OUTSIDE RECORDS SUMMARY | ~2019-03-08 | XMS | Encounter Summary ---
Demographics + + + | Address | [address] | | | [place] [address] | + + + | Home Phone [...] | Author | [facility] | | | and Josephana | + + + | Organization | [facility] | | [...] Team Providers + +------+ + | Care Escort Patients Name | Role | Phone | + [...] | | | | [address] | [place], [place] | [place], [place] | | | | | stage renal | [address] | [address] Phone: | | | | | disease | Phone: | [phone] | | | | | ([facility]) | [phone] | Fax: | | | | | Infection | Fax: | [phone] | | | | | and | [phone] | | | | | | inflammatory [...] M, DO [address] | renal disease) ([facility]) | | | | [address] | [place] | (Primary Dx) | | | | [place], [place] | [place], [place] | | | | | [address] | [address] | | | | | [phone] | | | +--------+ + + + [...] into the vein Three times a w hamilton. epoetin jenna (EPOGEN, PROCRIT) 10,000 units/mL injection [...] she should keep up t his effort retirement. 3. Heat, Daniel Denny, OTC, and tramadol, short term for her back. 4. Will recheck her in 1 week. CC: [place] Fina Joy MD, [facility], [facility] signed by Jorje Camp DO at [...] [address] | | | | | | [place] [address] | | | | | | [phone] | | | | | | | | +--------+---------+ + + + documented as of this encounter Visit Diagnoses + + | Diagnosis | + + | ESRD (end stage renal disease) (HCC) - Primary End stage renal disease | + + documented in this encounter
--- OUTSIDE RECORDS SUMMARY | ~2019-03-08 | XMS | Encounter Summary ---
Demographics + + + | Address | [address] | | | [place] [address] | + + + | Home Phone [...] | | | | | [place] [address] | | + + + + + | Thania Mallory | ECON | [address] | | | | | [place] [address] | | + + + + + | Deidra Weldon | ECON | [address] | | | | | [place] | | | | | [address] | | + + + + + Care Team Providers + +------+ + | Care Operator Receptionist Name | Role | Phone | [...] | | | | | [address] [place], | [place], [place] | | | | | [place] [address] | [address] | | | | | [phone] | | | +--------+ + + + [...] Denise | | | | | | [place] | | | | | | [address] | | | | | | [phone] | | | | | | | | +--------+ + + + + documented as of this encounter Visit Diagnoses Not on filedocumented in this encounter"
--- OUTSIDE RECORDS SUMMARY | ~2019-03-08 | XMS | Encounter Summary ---
Demographics + + + | Address | [address] | | | [place] [address] | + + + | Home Phone [...] | Author | [facility] | | | and Josephana | + + + | Organization | [facility] [...] Providers + +------+ + | Care Consumer Insight Analyst Name | Role | Phone | [...] | Encounter | JOY | MD Emanuel [address] | | | | | [address] | [facility] | | | | | [address] | [place], [place] | | | | | [place], [place] | [address] | | | | | [address] | [phone] | | | | | [phone] | | | +--------+ + + + [...] [address] | | | | | | [place] [address] | | | | | | [phone] | | | | | | | | +--------+---------+ + + + documented as of this encounter Visit Diagnoses Not on filedocumented in this encounter"
--- OUTSIDE RECORDS SUMMARY | ~2019-03-08 | XMS | Encounter Summary ---
Demographics + + + | Address | [address] | | | [place] [address] | + + + | Home Phone [...] | | | | | [place] [address] | | + + + + + | Thania Mallory | ECON | [address] | | | | | [place] [address] | | + + + + + | Deidra Weldon | ECON | [address] | | | | | [place] | | | | | [address] | | + + + + + Care Team Providers + +------+ + | Care Technician Submarine Cable Equipment Name | Role | Phone | + [...] Denise | | | | | | [place], [place] | | | | | | [address] | | | | | | [phone] | | | | | | | | +--------+ + + + + documented as of this encounter Visit Diagnoses Not on filedocumented in this encounter"
--- OUTSIDE RECORDS SUMMARY | ~2019-03-08 | XMS | Encounter Summary ---
Demographics + + + | Address | [address] | | | [place] [address] | + + + | Home Phone [...] Team Providers + +------+ + | Care Caul Puller Name | Role | Phone | [...] | Encounter | JOY | MD Emanuel [address] | | | | | [address] | [facility] | | | | | [address] | [place], [place] | | | | | [place], [place] | [address] | | | | | [address] | [phone] | | | | | [phone] | | | +--------+ + + + [...] [address] | | | | | | [place] [address] | | | | | | [phone] | | | | | | | | +--------+---------+ + + + documented as of this encounter Visit Diagnoses Not on filedocumented in this encounter"
--- OUTSIDE RECORDS SUMMARY | ~2019-03-08 | XMS | Encounter Summary ---
Demographics + + + | Address | [address] | | | [place] [address] | + + + | Home Phone [...] Author | [facility] | | | and [place]ana | + + + | Organization | [facility] | | [...] Team Providers + +------+ + | Care Cabana Attendant Name | Role | Phone | [...] NEPHROLOGY [address] | M, DO [address] | | | | | [address] | [place] | | | | | [place], [place] | [place], [place] | | | | | [address] | [address] | | | | | [phone] | | | +--------+ + + + [...] [address] | | | | | | [place] [address] | | | | | | [phone] | | | | | | | | +--------+---------+ + + + documented as of this encounter Visit Diagnoses Not on filedocumented in this encounter"
--- OUTSIDE RECORDS SUMMARY | ~2019-03-08 | XMS | Encounter Summary ---
Demographics + + + | Address | [address] | | | [place] [address] | + + + | Home Phone [...] | Author | [facility] | | | and Josephana | + + + | Organization | [facility] [...] Team Providers + +------+ + | Care Capacity Planning Manager Name | Role | Phone | [...] [address] | M, DO [address] | | | | | [address] | [place], [address] | | | | | [place], [place] | [place], [place] | | | | | [address] | [address] | | | | | [phone] | | | +--------+ + + + [...] [address] | | | | | | [place] [address] | | | | | | [phone] | | | | | | | | +--------+---------+ + + + documented as of this encounter Visit Diagnoses Not on filedocumented in this encounter"
--- OUTSIDE RECORDS SUMMARY | ~2019-03-08 | XMS | Encounter Summary ---
Demographics + + + | Address | [address] | | | [place] [address] | + + + | Home Phone [...] | | | | | [place] [address] | | + + + + + | Thania Mallory | ECON | [address] | | | | | [place] [address] | | + + + + + | Deidra Weldon | ECON | [address] | | | | | [place] | | | | | [address] | | + + + + + Care Team Providers + +------+ + | Care Patent Prosecution Attorney Name | Role | Phone | + +------+ + | Shahid Camargo MD | PCP | | + +------+ + Encounter Details +--------+ + + + + | Date | Type | Department | Care Team | Description | +--------+ + + + + | 12/20/ | Hospital | Radiology at [facility] | | | | 2012 | Encounter | [address] | | | | | | Mailcode: [id number] | | | | | | [place] | | | | | | [place], [place] | | | | | | [address] | | | | | | [phone] | | | +--------+ + + + [...] + + + +---------+--------+ + | EPOETIN OJYCE INJ | by Injection route. | | [...] Denise | | | | | | [place], [place] | | | | | | [address] | | | | | | [phone] | | | | | | | [...] | e | 9:27 AM | MEDICARE [id number] | procedure are in the | | [...]
--- OUTSIDE RECORDS SUMMARY | ~2019-03-08 | XMS | Encounter Summary ---
Demographics + + + | Address | [address] | | | [place] [address] | + + + | Home Phone [...] | | | | | [place] [address] | | + + + + + | Thania Mallory | ECON | [address] | | | | | [place] [address] | | + + + + + | Deidra Weldon | ECON | [address] | | | | | [place] | | | | | [address] | | + + + + + Care Team Providers + +------+ + | Care Implementation Architect Name | Role | Phone | [...] | | | [address] | [place] | | | | | [place], | [place], [place] | | | | | [place] [address] | [address] | | | | | [phone] | [phone] | | | | | | | [...] [place] | | | | | | [address] | | | | | | [phone] | | | | | | | | +--------+ + + + + documented as of this encounter Visit Diagnoses Not on filedocumented in this encounter"
--- OUTSIDE RECORDS SUMMARY | ~2019-03-08 | XMS | Encounter Summary ---
Demographics + + + | Address | [address] | | | [place] [address] | + + + | Home Phone [...] Author + + + | Author | [facility] | | | and Josephana | + + + | Organization | [facility] | [...] Providers + +------+ + | Care Electrical Engineering Director Name | Role | Phone [...] NEPHROLOGY [address] | MD [address] [place] | (Asymptomatic) | | | | [address] | [address] [place] | | | | | [place], [place] | [place] [address] | | | | | [address] | [phone] | | | | | [phone] | | | +--------+ + + + [...] AM PDTHEMO progress note manually faxed to [facility] [place], e-faxed to [facility] on 09/30. 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 Prior on peritoneal dialysis, started 2012. Access: R chest catheter. Peritonitis, dialysis-associated ([facility]) 07/29/2013 Note Last Updated: 07/29/2013 Due to MSSA. Had tunneled infection as well. PD catheter removed in July 2013. On Keflex till 08/01/13. History of Henoch-Schonlein purpura Note Last Updated: 07/29/2013 Diagnosed at age 10[address] Joy, manager pediatric. 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 Pt has been referred to [facility]. -pt will f/u with them next month [facility]na Joy, [facility] Pediatric Nephrology documented in this encounter [...] | | | | | | [place] [address] | | | | | | [phone] | | | | | | | [...]
--- OUTSIDE RECORDS SUMMARY | ~2019-03-08 | XMS | Encounter Summary ---
Demographics + + + | Address | [address] | | | [place] [address] | + + + | Home Phone [...] | | | | | [place] [address] | | + + + + + | Thania Mallory | ECON | [address] | | | | | [place] [address] | | + + + + + | Deidra Weldon | ECON | [address] | | | | | [place] | | | | | [address] | | + + + + + Care Team Providers + +------+ + | Care Documentation Nurse Name | Role | Phone | [...] with | | | | Car[place], | [place], [place] | pt's dad) | | | | [place] [address] | [address] | | | | | [phone] | | | +--------+ + + + [...] [place] | | | | | | [address] | | | | | | [phone] | | | | | | | | +--------+ + + + + documented as of this encounter Visit Diagnoses Not on filedocumented in this encounter"
--- OUTSIDE RECORDS SUMMARY | ~2019-03-08 | XMS | Encounter Summary ---
Demographics + + + | Address | [address] | | | [place] [address] [...] | Author | [facility] | | | and [place]ana | + + + | Organization | [facility] | | | [...] Providers + +------+ + | Care Account Leader Name | Role | Phone | [...] | | KIDNEY TRANSPLANT | [address], | | | | | [address] [place] | [place] [address] | | | | | [address] [place] [address] | [phone] | | | | | [address] | | | | | | [phone] | | | +--------+ + + + [...] [place] | | | | | | [place] [address] | | | | | | [phone] | | | | | | | | +--------+---------+ + + + documented as of this encounter Visit Diagnoses Not on filedocumented in this encounter"
--- OUTSIDE RECORDS SUMMARY | ~2019-03-08 | XMS | Encounter Summary ---
Demographics + + + | Address | [address] | | | [place] [address] | + + + | Home Phone [...] | | | | | [place] [address] | | + + + + + | Thania Mallory | ECON | [address] | | | | | [place] [address] | | + + + + + | Deidra Weldon | ECON | [address] | | | | | [place] | | | | | [address] | | + + + + + Care Team Providers + +------+ + | Care Tutor Coordinator Name | Role | Phone | [...] potential | | | | Caro [place], | [place], [place] | donor/checking in | | | | [place] [address] | [address] | with SW) | | | | [phone] | | | +--------+ + + + [...] [place] | | | | | | [address] | | | | | | [phone] | | | | | | | | +--------+ + + + + documented as of this encounter Visit Diagnoses Not on filedocumented in this encounter"
--- OUTSIDE RECORDS SUMMARY | ~2019-03-08 | XMS | Encounter Summary ---
Demographics + + + | Address | [address] | | | [place] [address] | + + + | Home Phone [...] Author | [facility] | | | and Josephana | + + + | Organization | [facility] | | | and [...] Team Providers + +------+ + | Care Print Room Worker Name | Role | Phone [...] [address] | M, DO [address] | | | | | [address] | [address] | | | | | [place], [place] | [place], [place] | | | | | [address] | [address] | | | | | [phone] | | | +--------+ + + + [...] Jennings - 12/29/2016 3:48 PM PDTOutside records: [facility] drug utilization revie w form confidential health [...] [place] | | | | | | [place] [address] | | | | | | [phone] | | | | | | | | +--------+---------+ + + + documented as of this encounter Visit Diagnoses Not on filedocumented in this encounter"
--- OUTSIDE RECORDS SUMMARY | ~2019-03-08 | XMS | Encounter Summary ---
Demographics + + + | Address | [address] | | | [place] [address] | + + + | Home Phone [...] Author | [facility] | | | and Josephana | + + + | Organization | [facility] | | | [...] Team Providers + +------+ + | Care Excelsior Picker Name | Role | Phone | [...] | | [address] | [address] | (Primary Dx) | | | | [place], [place] | [place], [place] | | | | | [address] | [address] | | | | | [phone] | | | +--------+ + + + [...] of documents of Clinic Attendance here at [facility], with the senior operator, Elisabeth Quijano RN. Outpatient Prescriptions Marked as [...] A&O x3, at this point. 3. [facility] her every opportunity to succeed here at the Clinic in [place]. 4. Will recheck her in 2 weeks. : [place] F[place] documented in thi s encounter Plan [...] | | | | | | [place] [address] | | | | | | [phone] | | | | | | | | +--------+---------+ + + + documented as of this encounter Visit Diagnoses + + | Diagnosis | + + | ESRD (end stage renal disease) (HCC) - Primary End stage renal disease | + + documented in this encounter"
--- OUTSIDE RECORDS SUMMARY | ~2019-03-08 | XMS | Encounter Summary ---
Demographics + + + | Address | [address] | | | [place] [address] | + + + | Home Phone [...] | | | | | [place] [address] | | + + + + + | Thania Mallory | ECON | [address] | | | | | [place] [address] | | + + + + + | Deidra Weldon | ECON | [address] | | | | | [place] | | | | | [address] | | + + + + + Care Team Providers + +------+ + | Care Statistical Clerk Advertising Name | Role | Phone | + [...] Update | | | | [address] | [facility] | | | | | [address] [facility], | [place], [place] | | | | | [place] [address] | [address] | | | | | [phone] | | | +--------+ + + + [...] [place] | | | | | | [address] | | | | | | [phone] | | | | | | | | +--------+ + + + + documented as of this encounter Visit Diagnoses Not on filedocumented in this encounter"
--- OUTSIDE RECORDS SUMMARY | ~2019-03-08 | XMS | Encounter Summary ---
Demographics + + + | Address | [address] | | | [place] [address] | + + + | Home Phone [...] | | | | | [place] [address] | | + + + + + | Thania Mallory | ECON | [address] | | | | | [place] [address] | | + + + + + | Deidra Weldon | ECON | [address] | | | | | [place] | | | | | [address] | | + + + + + Care Team Providers + +------+ + | Care Gold And Silver Assayer Name | Role | Phone | + [...] | | | | | Car[address] [place], | [place], [place] | | | | | [place] [address] | [address] | | | | | [phone] | [phone] | | | | | | | [...] Denise | | | | | | [place], [place] | | | | | | [address] | | | | | | [phone] | | | | | | | | +--------+ + + + + documented as of this encounter Visit Diagnoses Not on filedocumented in this encounter"
--- OUTSIDE RECORDS SUMMARY | ~2019-03-08 | XMS | Encounter Summary ---
Demographics + + + | Address | [address] | | | [place] [address] | + + + | Home Phone [...] | | | | | [place] [address] | | + + + + + | Thania Mallory | ECON | [address] | | | | | [place] [address] | | + + + + + | Deidra Weldon | ECON | [address] | | | | | [place] | | | | | [address] | | + + + + + [...] | | | [address] | [facility] | | | | | Park [place], | [place], [place] | | | | | [place] [address] | [address] | | | | | [phone] | | | +--------+ + + + [...] | | | | | | [place] | | | | | | [address] | | | | | | [phone] | | | | | | | | +--------+ + + + + documented as of this encounter Visit Diagnoses Not on filedocumented in this encounter"
--- OUTSIDE RECORDS SUMMARY | ~2019-03-08 | XMS | Encounter Summary ---
Demographics + + + | Address | [address] | | | [place] [address] | + + + | Home Phone [...] | Author | [facility] | | | and Josephana | + + + | Organization | [facility] | | | and Josephana [...] Team Providers + +------+ + | Care Buzzsaw Operator Name | Role | Phone | + +------+ + PCP | Unavailable | + +------+ + Encounter Details +--------+ + + + + | Date | Type | Department | Care Team | Description | +--------+ + + + + | 04/07/ | Hospital | [facility] | Conversion | | | 2015 | Encounter | CENTER [facility] | Transaction, | | | | | CLINIC [address] | Provider Unknown | | | | | [place], [place] | [phone] | | | | | [address] | | | | | | [phone] | | | +--------+ + + + [...] E | | | | | | [place] [address] | | | | | | [phone] | | | | | | | [...] EXTERNAL LAB | | Testing performed at [facility];[address] [place] [address];[place] [address] MRSA PCR | | | NEGATIVE Testing performed at | | | [facility];[address] [place] [address];[place] [address] | | + + + + +---------+ [...] | | | Patient | performed at [facility];[address] | | LAB | | | [address];[place], [place] | | | | | | [address] | | | | + + + [...] | | | | | performed at [facility];[address] | | | | | | [address] [facility];[place], [place] | | | | | | [address] | | | | + + + [...] EXTERNAL | | | | performed at [facility];[address] | | LAB | | | | [address];[place] | | | | | | [address] | | | | + + + + + + | RED CELL | 3.67 (L)Comment: Testing | 3.70 - 5.10 | EXTERNAL | | | COUNT | performed at [facility];[address] | M/uL | LAB | | | | [address];[place] | | | | | | [address] | | | | + + + + + + | Hgb | 13.0Comment: Testing | 11.3 - 15.5 | EXTERNAL | | | | performed at [facility];[address] | g/dL | LAB | | | | [address];[place] | | | | | | [address] | | | | + + + + + + | Hematocrit, | 38.3Comment: Testing | 34.0 - 46.0 % | EXTERNAL | | | POC | performed at [facility];[address] | | LAB | | | | [address];[place] | | | | | | [address] | | | | + + + + + + | MCV | 104.3 (H)Comment: | 80.0 - 100.0 fl | EXTERNAL | | | | Testing performed at | | LAB | | | | [facility];[address];[place] [address] | | | | + + + + + + | MCH | 35.4 (H)Comment: Testing | 27.0 - 34.0 pg | EXTERNAL | | | | performed at [facility];[address] | | LAB | | | | [address];[place] | | | | | | [address] | | | | + + + + + + | MCHC | 33.9Comment: Testing | 32.0 - 35.5 | EXTERNAL | | | | performed at [facility];[address] | g/dL | LAB | | | | [address];[place] | | | | | | [address] | | | | + + + + + + | RDW-CV | 48.1Comment: Testing | 37 - 53 fl | EXTERNAL | | | | performed at [facility];[address] | | LAB | | | | [address];[place] | | | | | | [address] | | | | + + + + + + | Platelet | 157Comment: Testing | 150 - 400 K/uL | EXTERNAL | | | Count | performed at [facility];[address] | | LAB | | | Plasma | [address];[place] | | | | | | [address] | | | | + + + + + + | MPV | 9.3Comment: Testing | fl | EXTERNAL | | | | performed at [facility];[address] | | LAB | | | | [address];[place] | | | | | | [address] | | | | + + + + + + | Differentia | AUTOMATEDComment: | | EXTERNAL | | | l Type | Testing performed at | | LAB | | | | [facility];[address];[place] [address] | | | | + + + + + + | % Segmented | 55.8Comment: Testing | % | EXTERNAL | | | | performed at [facility];[address] | | LAB | | | Neutrophils | [address];[place] | | | | | | [address] | | | | + + + + + + | % | 35.8Comment: Testing | % | EXTERNAL | | | Lymphocytes | performed at [facility];[address] | | LAB | | | | [address];[place] | | | | | | [address] | | | | + + + + + + | % Monocytes | 6.0Comment: Testing | % | EXTERNAL | | | | performed at [facility];[address] | | LAB | | | | [address];[place] | | | | | | [address] | | | | + + + + + + | % | 1.9Comment: Testing | % | EXTERNAL | | | Eosinophils | performed at [facility];[address] | | LAB | | | | [address];[place] | | | | | | [address] | | | | + + + + + + | % Basophils | 0.5Comment: Testing | % | EXTERNAL | | | | performed at [facility];[address] | | LAB | | | | [address];[place] | | | | | | [address] | | | | + + + + + + | Absolute | 2.8Comment: Testing | 1.9 - 7.4 K/uL | EXTERNAL | | | Segmented | performed at [facility];[address] | | LAB | | | Neutrophils | [address];[place] | | | | | | [address] | | | | + + + + + + | Absolute | 1.8Comment: Testing | 1.0 - 3.9 K/uL | EXTERNAL | | | Lymphocytes | performed at [facility];[address] | | LAB | | | | [address];[place] | | | | | | [address] | | | | + + + + + + | Absolute | 0.3Comment: Testing | 0 - 0.8 K/uL | EXTERNAL | | | Monocytes | performed at [facility];[address] | | LAB | | | | [address];[place] | | | | | | [address] | | | | + + + + + + | Absolute | 0.1Comment: Testing | 0 - 0.5 K/uL | EXTERNAL | | | Eosinophils | performed at [facility];[address] | | LAB | | | | [address];[place] | | | | | | [address] | | | | + + + + + + | Absolute | 0.0Comment: Testing | 0 - 0.1 K/uL | EXTERNAL | | | Basophils | performed at [facility];[address] | | LAB | | | | [address];[place] | | | | | | [address] | | | | + + + [...] | | | QUALITATIVE | performed at [facility];[address] | | LAB | | | | [address];[place], [place] | | | | | | [address] | | | | + + + [...] EXTERNAL | | | | performed at [facility];888 | mmol/L | LAB | | | | [address];[place] | | | | | | [address] | | | | + + + + + + | K | 3.3 (L)Comment: Testing | 3.5 - 4.9 | EXTERNAL | | | | performed at [facility];[address] | mmol/L | LAB | | | | [address];[place] | | | | | | [address] | | | | + + + + + + | Cl | 99Comment: Testing | 99 - 109 mmol/L | EXTERNAL | | | | performed at [facility];[address] | | LAB | | | | [address];[place] | | | | | | [address] | | | | + + + + + + | CO2 | 29Comment: Testing | 23 - 32 mmol/L | EXTERNAL | | | | performed at [facility];[address] | | LAB | | | | [address];[place] | | | | | | [address] | | | | + + + + + + | Anion Gap | 13Comment: Testing | 5 - 20 mmol/L | EXTERNAL | | | | performed at [facility];[address] | | LAB | | | | [address];[place] | | | | | | [address] | | | | + + + + + + | Glucose, | 92Comment: Testing | 65 - 99 mg/dL | EXTERNAL | | | Fasting | performed at [facility];[address] | | LAB | | | | [address];[place] | | | | | | [address] | | | | + + + + + + | BUN | 30 (H)Comment: Testing | 8 - 25 mg/dL | EXTERNAL | | | | performed at [facility];[address] | | LAB | | | | [address];[place] | | | | | | [address] | | | | + + + + + + | Creatinine | 7.21 (H)Comment: Testing | 0.50 - 1.00 | EXTERNAL | | | | performed at [facility];888 | mg/dL | LAB | | | | [address];[place] | | | | | | [address] | | | | + + + + + + | BUN/Creatin | 4Comment: Testing | | EXTERNAL | | | ine Ratio | performed at [facility];[address] | | LAB | | | | [address];[place] | | | | | | [address] | | | | + + + + + + | Calcium | 8.3 (L)Comment: NOTE NEW | 8.5 - 10.5 | EXTERNAL | | | | REFERENCE RANGETesting | mg/dL | LAB | | | | performed at [facility];[address] | | | | | | [address];[place] | | | | | | [address] | | | | + + + + + + | Estimated | CALCULATION NOT | mL/min/1.73m2 | EXTERNAL | | | GFR | PERFORMED. RESULT NOT | | LAB | | | | VALID IF AGE LT 20 | | | | | | YEARS.Comment: Testing | | | | | | performed at [facility];[address] | | | | | | [address];[place] | | | | | | [address] | | | | + + + [...]
--- OUTSIDE RECORDS SUMMARY | ~2019-03-08 | XMS | Encounter Summary ---
Demographics + + + | Address | [address] | | | [place] [address] | + + + | Home Phone [...] + | Author | [facility] | | | and Josephana | + + + | Organization | [facility] | | [...] Providers + +------+ + | Care Body Art Technician Name | Role | Phone | + +------+ + PCP | Unavailable | + +------+ + Encounter Details +--------+ + + + + | Date | Type | Department | Care Team | Description | +--------+ + + + + | 08/12/ | Hospital | [facility] | Conversion | ESRD (end stage | | 2016 | Encounter | CENTER CV INTRA OP | Transaction, | renal disease) | | | | [address] | Provider Unknown | ([facility]); ESRD on | | | | [place], [place] | | hemodialysis ([facility]) | | | | [address] | (Fax) | | | | | [phone] | Doyle Diaz MD | | +--------+ [...] 08/13/151114 Date of Service: 08/13/151114 Status: Signed Operations And Maintenance Technician: Taylor Acuna RN (Registered Nurse) Pt discharged [...] | | | | | [place] [address] | | | | | | [phone] | | | | | | | [...] ANGIOPLASTY AV FISTULA VENOUS | | | ANIMAL REHABILITATOR: Doyle Diaz MD CONSENT: The risks, benefits [...] guidewire combination, a 4 | | | Mongolian angled catheter was advanced and positioned into [...] a | | | guidewire, a 6 Mongolian sheath was advanced and positioned into the [...] a | | | guidewire, a 7 Mongolian sheath was advanced and positioned into the [...] IR ANGIOPLASTY | | AV FISTULA VENOUS ANIMAL REHABILITATOR: Doyle Diaz MD CONSENT: The risks, benefits [...] catheter guidewire combination, a | | 4 Mongolian angled catheter was advanced and positioned into [...] | | ANGIOPLASTY:Over a guidewire, a 6 Mongolian sheath was advanced and positioned into the [...] Over | | a guidewire, a 7 Mongolian sheath was advanced and positioned into the [...] ANGIOPLASTY AV FISTULA VENOUS | | | ANIMAL REHABILITATOR: Doyle Diaz MD CONSENT: The risks, benefits [...] guidewire combination, a 4 | | | Mongolian angled catheter was advanced and positioned into [...] a | | | guidewire, a 6 Mongolian sheath was advanced and positioned into the [...] a | | | guidewire, a 7 Mongolian sheath was advanced and positioned into the [...] IR ANGIOPLASTY | | AV FISTULA VENOUS ANIMAL REHABILITATOR: Doyle Diaz MD CONSENT: The risks, benefits [...] catheter guidewire combination, a | | 4 Mongolian angled catheter was advanced and positioned into [...] | | ANGIOPLASTY:Over a guidewire, a 6 Mongolian sheath was advanced and positioned into the [...] Over | | a guidewire, a 7 Mongolian sheath was advanced and positioned into the [...] LAB | | | | performed at [facility];[address] | | | | | | [facility];[place], [place] | | | | | | [address] | | | | + + + [...]
--- OUTSIDE RECORDS SUMMARY | ~2019-03-08 | XMS | Encounter Summary ---
Demographics + + + | Address | [address] | | | [place] [address] | + + + | Home Phone [...] | | | | | [place] [address] | | + + + + + | Thania Mallory | ECON | [address] | | | | | [place] [address] | | + + + + + | Deidra Weldon | ECON | [address] | | | | | [place] | | | | | [address] | | + + + + + Care Team Providers + +------+ + | Care Needle Loom Setter Name | Role | Phone | [...] | Nephrology at | MD Emanuel [address] [facility] | | | | | Alexander | [facility] | | | | | [facility] | [place], [place] | | | | | [address] | [address] | | | | | Mailcode: [id number] | [phone] | | | | | Alexander | | | | | | [place], [place] | | | | | | [address] | | | | | | [phone] | | | +--------+ + + + [...] Ave | | | | | | [place], [place] | | | | | | [address] | | | | | | [phone] | | | | | | | [...] + + documented in this encounter Results [facility] NE[facility]Y EXTERNAL RESULTS PANEL (05/11/2016) + + [...] | [address] | [place] [address] | [phone] | | HOSPITAL | | | | [...] [address] | [place] [address] | [phone] | | HOSPITAL | | | | [...] + + + + + | [facility] | [address] | [place] [address] | [phone] | | HOSPITAL | | | | [...] + | HEMOGLOBIN | 10.4 (A) | - 15 | [facility] | | | [...] + + + + + | [facility] | [address] | [place] [address] | [phone] | | HOSPITAL | | | | + + + + + [facility] NEPHR[facility]Y EXTERNAL RESULTS PANEL (01/13/2016) + + [...] | [address] | [place] [address] | [phone] | | HOSPITAL | | | | + + + + + [facility] NEPHROLOGY EXTERNAL RESULTS PANEL (12/12/2015) + + [...] [address] | [place] [address] | [phone] | | HOSPITAL | | | | + + + + + documented in this encounter Visit Diagnoses Not on filedocumented in this encounter"
--- OUTSIDE RECORDS SUMMARY | ~2019-03-08 | XMS | Encounter Summary ---
Demographics + + + | Address | [address] | | | [place] [address] | + + + | Home Phone [...] Author | [facility] | | | and [place]ana | + + + | Organization | [facility] | [...] Providers + +------+ + | Care Rail Equipment Operator Name | Role | Phone | + +------+ + PCP | Unavailable | + +------+ + Encounter Details +--------+ + + + + | Date | Type | Department | Care Team | Description | +--------+ + + + + | 03/25/ | Documentati | [facility] | Dnaiela Ibarra, | | | 2016 | on | NEPHROLOGY [address] | MD [address] | | | | | [address] | [address] [place] | | | | | [place], [place] | [place] [address] | | | | | [address] | [phone] | | | | | [phone] | | | +--------+ + + + [...] DAV[place] | | | | | | [place] [address] | | | | | | [phone] | | | | | | | | +--------+---------+ + + + documented as of this encounter Visit Diagnoses Not on filedocumented in this encounter"
--- OUTSIDE RECORDS SUMMARY | ~2019-03-08 | XMS | Encounter Summary ---
Demographics + + + | Address | [address] | | | [place] [address] | + + + | Home Phone [...] | | | | | [place] [address] | | + + + + + | Thania Mallory | ECON | [address] | | | | | [place] [address] | | + + + + + | Deidra Weldon | ECON | [address] | | | | | [place] | | | | | [address] | | + + + + + Care Team Providers + +------+ + | Care Communications Program Manager Name | Role | Phone [...] | | | [address] | [facility] | | | | | [address] [place], | [place], [place] | | | | | [place] [address] | [address] | | | | | [phone] | | | +--------+ + + + [...] Denise | | | | | | [place], [place] | | | | | | [address] | | | | | | [phone] | | | | | | | | +--------+ + + + + documented as of this encounter Visit Diagnoses Not on filedocumented in this encounter"
--- OUTSIDE RECORDS SUMMARY | ~2019-03-08 | XMS | Encounter Summary ---
Demographics + + + | Address | [address] | | | [place] [address] | + + + | Home Phone [...] | [facility] | | | and [place]ana | + + + | Organization | [facility] | [...] Team Providers + +------+ + | Care Petrography Teacher Name | Role | Phone | + +------+ + PCP | Unavailable | + +------+ + Encounter Details +--------+ + + + + | Date | Type | Department | Care Team | Description | +--------+ + + + + | 08/31/ | Hospital | [facility] | Conversion | ESRD (end stage | | 2016 | Encounter | CENTER CV INTRA OP | Transaction, | renal disease) (HCC) | | | | [address] | Provider Unknown | | | | | [place], [place] | | | | | | [address] | (Fax) | | | | | [phone] | Doyle Diaz MD | | +--------+ [...] E | | | | | | [place] [address] | | | | | | [phone] | | | | | | | [...] | 2. IR ANGIOPLASTY AV FISTULA VENOUS DRESS OPERATOR: Doyle Diaz MD | | | [...] | | Over a guidewire, a 4 Mauritanian angled catheter was advanced and | | [...] | ANGIOPLASTY: Over a guidewire, a 6 Mauritanian sheath was advanced | | | and [...] IR ANGIOPLASTY AV | | FISTULA VENOUS DRESS OPERATOR: Doyle Diaz MD CONSENT: The risks, [...] micropuncture needle. Over a guidewire, a 4 Mauritanian angled catheter was | | advanced and [...] appears patent. ANGIOPLASTY:Over a guidewire, a 6 Mauritanian sheath was | | advanced and positioned [...] AM | |Over a guidewire, a 6 Mauritanian sheath was advanced and positioned into the [...] | 2. IR ANGIOPLASTY AV FISTULA VENOUS DRESS OPERATOR: Doyle Diaz MD | | | [...] | | Over a guidewire, a 4 Mauritanian angled catheter was advanced and | | [...] | ANGIOPLASTY: Over a guidewire, a 6 Mauritanian sheath was advanced | | | and [...] IR ANGIOPLASTY AV | | FISTULA VENOUS DRESS OPERATOR: Doyle Diaz MD CONSENT: The risks, [...] micropuncture needle. Over a guidewire, a 4 Mauritanian angled catheter was | | advanced and [...] appears patent. ANGIOPLASTY:Over a guidewire, a 6 Mauritanian sheath was | | advanced and positioned [...] AM | |Over a guidewire, a 6 Mauritanian sheath was advanced and positioned into the [...] | LAB | | | | Nica Oropeza;[place], [place] | | | | | | [address] | | | | + + + [...]
--- OUTSIDE RECORDS SUMMARY | ~2019-03-08 | XMS | Encounter Summary ---
Demographics + + + | Address | [address] | | | [place] [address] | + + + | Home Phone [...] + | Author | [facility] | | | and [place]ana | + + + | Organization | [facility] | [...] + +------+ + | Care Experimental Mechanic Name | Role | Phone | [...] | stage renal | [address] | [address] [place] [address] | | | | | disease) | Shun Griffin | [place] | | | | | ([facility]) | [address] | [address] [place] | | | | | Anemia in | [place], [place] | [place] | | | | | ESRD | [address] | [address] Phone: | | | | | (end-stage | Phone: | [phone] | | | | | renal | [phone] | Fax: | | | | | disease) | Fax: | [phone] | | | | | ([facility]) | [phone] | | | | | | Procedures [...] | | [address] | [place], [address] | disease) ([facility]) | | | | [place], [place] | [place] [facility], [place] | (Primary Dx); ESRD | | | | [address] | [address] | (end stage renal | | | | [phone] | | disease) ([facility]) | +--------+ [...] Hypertension--from review of her treatment data in [facility] EHR, BP appears stable at her current [...] recheck her iron profile next m [facility]. Plan: 1. Again, I counseled Dara length about the pitfalls of chronic hyperphosphatemia and its potential morbidity. 2. Will recheck her PTH, and iron profile with monthly lab next month. Will continue to h old her EPO as above until hemoglobin is closer to 10.0-11.0 g/dl. 3. To her credit, she does bring her Renvela capsules in a container here to clinic, at e chairside. 4. Will recheck her in 2 weeks. CC: Everly Fina Joy MD, Renal Transplant Clinic, [facility] signed by Jorje Camp DO at 03/03/2015 [...] [place] | | | | | | [place] [address] | | | | | | [phone] | | | | | | | [...]
--- OUTSIDE RECORDS SUMMARY | ~2019-03-08 | XMS | Encounter Summary ---
Demographics + + + | Address | [address] | | | [place] [address] | + + + | Home Phone [...] [facility] | | | and Josephana | + + + | Organization | [facility] [...] +------+ + | Care Associate Professor Of Violin Name | Role | Phone | + [...] [place] | | | | | | [address] | | | | | | [phone] | | | +--------+ + + + [...] DAV[place] | | | | | | [place] [address] | | | | | | [phone] | | | | | | | | +--------+---------+ + + + documented as of this encounter Visit Diagnoses Not on filedocumented in this encounter"
--- OUTSIDE RECORDS SUMMARY | ~2019-03-08 | XMS | Encounter Summary ---
Demographics + + + | Address | [address] | | | [place] [address] | + + + | Home Phone [...] | | | | | [place] [address] | | + + + + + | Thania Mallory | ECON | [address] | | | | | [place] [address] | | + + + + + | Deidra Weldon | ECON | [address] | | | | | [place] | | | | | [address] | | + + + + + Care Team Providers + +------+ + | Care Semi Automatic Sewing Machine Operator Name | Role | Phone [...] | | | [address] | [facility] | | | | | [facility], | [place], [place] | | | | | [place] [address] | [address] | | | | | [phone] | | | +--------+ + + + [...] Denise | | | | | | [place], [place] | | | | | | [address] | | | | | | [phone] | | | | | | | | +--------+ + + + + documented as of this encounter Visit Diagnoses Not on filedocumented in this encounter"
--- OUTSIDE RECORDS SUMMARY | ~2019-03-08 | XMS | Encounter Summary ---
Demographics + + + | Address | [address] | | | [place] [address] | + + + | Home Phone [...] Author | [facility] | | | and Josephana | + + + | Organization | [facility] [...] + +------+ + | Care Professor Of Sport Management Name | Role | Phone | + [...] | | | [address] [place] | [place] [address] | | | | | [place], [place] | [phone] | | | | | [address] | | | | | | [phone] | | | +--------+ + + + [...] DAV[place]SON | | | | | | [place] [address] | | | | | | [phone] | | | | | | | | +--------+---------+ + + + documented as of this encounter Visit Diagnoses Not on filedocumented in this encounter"
--- OUTSIDE RECORDS SUMMARY | ~2019-03-08 | XMS | Encounter Summary ---
Demographics + + + | Address | [address] | | | [place] [address] | + + + | Home Phone [...] Author | [facility] | | | and Josephana | + + + | Organization | [facility] | | [...] Team Providers + +------+ + | Care Linen Clerk Name | Role | Phone | [...] | | | | | | [place] | | | | | | | [...] + + | 02/24/ | Hospital | [facility] | Blake Chavarria | ESRD (end stage | | 2013 | Encounter | MED CTR OR INTRA OP | MD Antonieta, FACS [address] | renal disease) ([facility]) | | | | [address] | [facility] | (Primary Dx) | | | | [place] | [place] [address] | | | | | [address] | [phone] | | | | | [phone] | | | +--------+ + + + [...] be different f rom the original. [facility] POST-OP INSTRUCTIONS: Arterio-Venous Fistula 1. [...] may interact with prescription medicines or other suue-erj-sqraocl (OTC) drugs. The FDA recommends reading OTC medication labels careful ly to clearly understand the list of active ingredients, directions, and any precautions to help avoid taking too muchacetaminophen. If you have questions, ask your pharmacist or [facility] care provider. Managing Nausea Some people [...] or skin changes (rash, itching, or hives). 5388-5523 [employer]. [address] [place] [address], [place] [address]. All righ ts reserved. This information is [...] [place] | | | | | | [place] [address] | | | | | | [phone] | | | | | | | [...] mL/min/1.73m2 | [facility] | | | NIUEAN | (<18). | | MEDICAL | | [...] + | [facility] | [address] | [place], [place] | [phone] | | [facility] | | [address] | | | - LABORATORY | | | | + + + + + | [facility] | [address] | [place], [place] | | | [facility] | | [address] | | | - LABORATORY | | [...]
--- OUTSIDE RECORDS SUMMARY | ~2019-03-08 | XMS | Encounter Summary ---
Demographics + + + | Address | [address] | | | [place] [address] | + + + | Home Phone [...] Author | [facility] | | | and [place]ana | + + + | Organization | [facility] | [...] Providers + +------+ + | Care Charter And Tour Bus Driver Name | Role | Phone [...] | stage renal | [address] | [address] [place] [address] | | | | | disease) | Shun Griffin | [place] | | | | | (HCC) | [address] | [address] [place] | | | | | Anemia in | [place], [place] | [place], [place] | | | | | ESRD | [address] | [address] Phone: | | | | | (end-stage | Phone: | [phone] | | | | | renal | [phone] | Fax: | | | | | disease) | Fax: | [phone] | | | | | ([facility]) | [phone] | | | | | | Procedures | | | | | | | [place] ESRD | | | | | | [...] DO [address] | renal disease) ([facility]) | | | | [address] | [place], [address] | (Primary Dx) | | | | [place], [place] | [place], [place] | | | | | [address] | [address] | | | | | [phone] | | | +--------+ + + + [...] to fall on the Parsab[place], IV? : [place] Fina Alonso MD, PhD documented in thi [...] DAV[place]SON | | | | | | [place] [address] | | | | | | [phone] | | | | | | | | +--------+---------+ + + + documented as of this encounter Visit Diagnoses + + | Diagnosis | + + | ESRD (end stage renal disease) (HCC) - Primary End stage renal disease | + + documented in this encounter
--- OUTSIDE RECORDS SUMMARY | ~2019-03-08 | XMS | Encounter Summary ---
Demographics + + + | Address | [address] | | | [place] [address] | + + + | Home Phone [...] | | | | | [place] [address] | | + + + + + | Thania Mallory | ECON | [address] | | | | | [place] [address] | | + + + + + | Deidra Weldon | ECON | [address] | | | | | [place] | | | | | [address] | | + + + + + Care Team Providers + +------+ + | Care Manager Security Name | Role | Phone | [...] [place] | | | | | [facility], | [place], [place] | | | | | [place] [address] | [address] | | | | | [phone] | | | +--------+ + + + [...] Denise | | | | | | [place], [place] | | | | | | [address] | | | | | | [phone] | | | | | | | | +--------+ + + + + documented as of this encounter Visit Diagnoses Not on filedocumented in this encounter"
--- OUTSIDE RECORDS SUMMARY | ~2019-03-08 | XMS | Encounter Summary ---
Demographics + + + | Address | [address] | | | [place] [address] | + + + | Home Phone [...] | Author | [facility] | | | and [place]ana | + + + | Organization | [facility] | | | [...] + +------+ + | Care Manager Of Tires Sales Name | Role | Phone | [...] | NEPHROLOGY [address] | [address] | | | | | [address] | [address] [place] | | | | | [place], [place] | [place] [address] | | | | | [address] | [phone] | | | | | [phone] | | | +--------+--------+ + + + [...] | | | | | [place] [address] | | | | | | [phone] | | | | | | | | +--------+---------+ + + + documented as of this encounter Visit Diagnoses Not on filedocumented in this encounter"
--- OUTSIDE RECORDS SUMMARY | ~2019-03-08 | XMS | Encounter Summary ---
Demographics + + + | Address | [address] | | | [place] [address] | + + + | Home Phone [...] | | | | | [place] [address] | | + + + + + | Thania Mallory | ECON | [address] | | | | | [place] [address] | | + + + + + | Deidra Weldon | ECON | [address] | | | | | [place] | | | | | [address] | | + + + + + Care Team Providers + +------+ + | Care Admissions Gate Attendant Name | Role | Phone | [...] Evaluation | | | | [address] [place], | [place], [place] | | | | | [place] [address] | [address] | | | | | [phone] | | | +--------+ + + + [...] Denise | | | | | | [place] | | | | | | [address] | | | | | | [phone] | | | | | | | | +--------+ + + + + documented as of this encounter Visit Diagnoses Not on filedocumented in this encounter"
--- OUTSIDE RECORDS SUMMARY | ~2019-03-08 | XMS | Encounter Summary ---
Demographics + + + | Address | [address] | | | [place] [address] | + + + | Home Phone [...] | | | | | [place] [address] | | + + + + + | Thania Mallory | ECON | [address] | | | | | [place] [address] | | + + + + + | Deidra Weldon | ECON | [address] | | | | | [place] | | | | | [address] | | + + + + + Care Team Providers + +------+ + | Care Nutritional Assistant Name | Role | Phone | [...] Hoffmann Elias | [facility] | | | | | [address], | [place], [place] | | | | | [place] [address] | [address] | | | | | [phone] | | | +--------+ + + + [...] Denise | | | | | | [place], [place] | | | | | | [address] | | | | | | [phone] | | | | | | | | +--------+ + + + + documented as of this encounter Visit Diagnoses Not on filedocumented in this encounter"
--- OUTSIDE RECORDS SUMMARY | ~2019-03-08 | XMS | Encounter Summary ---
Demographics + + + | Address | [address] | | | [place] [address] | + + + | Home Phone [...] | | | | | [place] [address] | | + + + + + | Thania Mallory | ECON | [address] | | | | | [place] [address] | | + + + + + | Deidra Weldon | ECON | [address] | | | | | [place] | | | | | [address] | | + + + + + Care Team Providers + +------+ + | Care Metal Miner Blasting Name | Role | Phone [...] Visit | Services Inpatient | [address] | disease, stage V | | | | [address] [facility] | [facility] | (HCC) (Primary Dx) | | | | [address] | [place], [place] | | | | | Mailcode: UHS18 | [address] | | | | | [place], [place] | [phone] | | | | | [address] | | | | | | [phone] | | | +--------+---------+ + + + [...] a nutrition perspective. Argentina Mehta, MS, RD, MOWING MACHINE OPERATOR, LD documented in this e ncounter Plan of Treatment +--------+ + + + + | Date | Type | Specialty | Care Team | Description | +--------+ + + + + | 05/04/ | Hospital | Adult Acute Care | El Starr MD | | | 2022 | Encounter | | [address] | | | | | | [place], [place] | | | | | | [address] | | | | | | [phone] | | | | | | | | +--------+ + + + + documented as of this encounter Procedures + +--------+ + + + | Procedure Name | Priori | Date/Time | Associated Diagnosis | Comments | | | ty | | | | + +--------+ + + + | [facility] MNT INITIAL | Routin | 12/21/2012 | [...]
--- OUTSIDE RECORDS SUMMARY | ~2019-03-08 | XMS | Encounter Summary ---
Demographics + + + | Address | [address] | | | [place] [address] | + + + | Home Phone [...] Author | [facility] | | | and [place]ana | + + + | Organization | [facility] | | [...] Providers + +------+ + | Care Wood Gang Sawyer Name | Role | Phone | [...] | | stage renal | [address] | [address] [place] [address] | | | | | disease) | Shun Griffin | [place] | | | | | ([facility]) | [address] | [address] [place] | | | | | Anemia in | [place], [place] | [place] | | | | | ESRD | [address] | [address] Phone: | | | | | (end-stage | Phone: | [phone] | | | | | renal | [phone] | Fax: | | | | | disease) | Fax: | [phone] | | | | | ([facility]) | [phone] | | | | | | Procedures [...] | | [address] | [place], [address] | disease) ([facility]) | | | | [place], [place] | [place] [facility], [place] | (Primary Dx); ESRD | | | | [address] | [address] | (end stage renal | | | | [phone] | | disease) ([facility]) | +--------+ + + + + Social [...] Hypertension--from review of her treatment data in [facility] EHR, BP appears stable at [...] Will recheck her iron profile next m [facility]. Plan: 1. Again, I counseled [...] Will recheck her in 2 weeks. CC: [place] Fina Joy MD, Renal Transplant Clinic, [facility] signed by Jorje Camp DO at [...] [place] | | | | | | [place] [address] | | | | | | [phone] | | | | | | | [...]
--- OUTSIDE RECORDS SUMMARY | ~2019-03-08 | XMS | Encounter Summary ---
Demographics + + + | Address | [address] | | | [place] [address] | + + + | Home Phone [...] | Author | [facility] | | | and [place] | + + + | Organization | [facility] [...] Team Providers + +------+ + | Care Livestock Auctioneer Name | Role | Phone | + [...] + + | 11/06/ | Hospital | [facility] | Johnathan Brooks, | Chronic right-sided | | 2019 - | Encounter | [facility] | MD Brooks TORRES | heart failure (HCC) | | | | CARE FLOOR [address] | [place] [address] | (Primary Dx); Acute | | 11/09/ | | [address] | [phone] | hypoxemic | | 2019 | | [place], [place] | | respiratory failure | | | | [phone] | Darell Kowalski MD | (HCC); Chronic | | | | [phone] | [address]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 [facility]: Medicine DISCHARGE SUMMARY Primary Care Physician: [...] be evaluated at local emergency room at [facility]. In the ER patient was evaluated by [...] transferred with the patient's paper documentation from [facility] ER). Initial labs: WBC 6.5, hemoglobin 11.0, [...] suggesting of edema. Taken from Dr. Brooks [facility] (11/06/2018) HOSPITAL COURSE Patient was admitted for [...] Left; Surgeon: Blake Chavarria MD ; Location: [facility] MAIN OR AV FISTULA REPAIR Left 03/07/2014 Procedure: AV FISTULA - GRAFT REPAIR/REVISION; Surgeon: Rik Simon MD; Location: [facility]; Service: Vascular; Laterality: Left; biopsy of kidney age 10 DIALYSIS FISTULA CREATION 04/08/2014 Procedure: DIALYSIS CATHETER - INSERTION; Surgeon: Rik Simon MD; Location: [facility] ; Service: Vascular; Laterality: N/A; tunneled catheter.br hemodialysis catheter KIDNEY BIOPSY Left 2003 OTHER SURGICAL HISTORY LAPAROSCOPIC PERITONEAL DIALYSIS CATHETER INSERTION - x2 OTHER SURGICAL HISTORY Right 07/2013 LAPAROSCOPIC PERITONEAL DIALYSIS CATHETER INSERTION - current dialysis access MWF dialysis OTHER SURGICAL HISTORY Left 06/24/2014 SUPERFICIALIZATION OF AV FISTULA - Procedure: AV FISTULA - SUPERFICIALIZATION; Surgeon: Emanuel Simon MD; Location: [facility] OR; Service: Vascular; Laterality: Left; OTHER SURGICAL HISTORY Left 04/08/2014 AV FISTULA PLACEMENT - Procedure: AV FISTULA; Surgeon: Rik Simon MD; Location: [facility]; Service: Vascular; Laterality: Left; cephalic OTHER SURGICAL HISTORY Left 03/07/2014 DECLOT GRAFT - Procedure: GRAFT - DECLOT; Surgeon: Rik Simon MD; Location: [facility] ; Service: Vascular; Laterality: Left; peritoneal [...] Value Units Date/Time Culture, Body Fluid Sterile [[id number]] Collected: 11/07/18 1515 Order Status: Completed Lab Status: Preliminary result Updated: 11/09/18 1412 Specimen: Body Fluid from Pleural Fluid, Right Special Requests RIGHT SIDE Special Requests Testing performed at [facility];[address] [place] [address] Gram Stain Result NO CELLS OR ORGANISMS SEEN RESULT NO GROWTH 2 DAYS RESULT Testing performed at [facility], [address] [place] [address] Comment: Testing performed at [facility], [address] [place] [address] Culture, Body Fluid Sterile [[id number]] Order Status: Canceled Lab Status: No result [...] DANIEL Follow Up: Jonathan Alonso MD [address] [facility] [place] [address] In 1 week René Anguiano MD [address] [facility] [address] [place] [address] In 1 [...] | | | | | renal disease) ([facility]) | protocol | | | [...] her sister. DME equipment order sent to [facility]. She refused oxygen delivery [...] UF. Hypervolemia has improved with HD/UF/thoracentesis. Acute [place] has been ruled out. Recommendations: Plan for [...] for continuity of chart review/care. Dictation software, [employer], was used which may contain error for [...] this note might be different from the [facility] Inpatient Progress Note Pt: Dara Louise AGE/SEX: 23 y.o. ROOM: [facility]/8125- : 1995 PCP: Jonathan Alonso MD [...] hypervolemic and has recurrent hyperkalemia/metabolic acidosis. Acute [place] has been ruled out. Recommendations: Plan for [...] for continuity of chart review/care. Dictation software, [employer], was used which may contain error for [...] this note might be different from the [facility] Inpatient Progress Note Pt: Dara Louise AGE/SEX: 23 y.o. ROOM: [address] [place] [address] : 1995 PCP: Jonathan Alonso MD PATIENT [...] and dyspnea. The patient was seen at [facility] ER and then transferred to our internal [...] [address] | | | | | | [place] [address] | | | | | | [phone] | | | | | | | [...] + | Billie Gupta MD 11/09/2018 9:34 [facility] | | | Center Hemo-Dialysis Procedure note [...] | | . 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 Admin Secretary 240 | | | Constitutional: pt appears [...] ANDREY | | | | performed at [facility], [address] | | LABORATORY | | | | [address] [place], | | | | | | [place] [address] | | | | + + + + + + + + | Specimen | + + | Blood | + + + + + + + | Performing | Address | City/State/Zipcode | Phone Number | | Organization | | | | + + + + + | [facility] | [address] | [place] [address] | [phone] | + + + + + Comprehensive [...] performed at [facility], [address] | | | | | | [address] [facility], | | | | | | [place] [address] | | | | + + + + + + + + | Specimen | + + | Blood | + + + + + + + | Performing | Address | City/State/Zipcode | Phone Number | | Organization | | | | + + + + + | [facility] | [address] | [place] [address] | [phone] | + + + + + CBC [...] LABORATORY | | | | performed at [facility], [address] | | | | | | [address], | | | | | | [place] [address] | | | | | | | | | | + + + + + + + + | Specimen | + + | Blood | + + + + + + + | Performing | Address | City/State/Zipcode | Phone Number | | Organization | | | | + + + + + | [facility] | [address] | [place] [address] | [phone] | + + + + + Protime INR (11/09/2018 4:14 AM PDT) + + + + + + | Component | Value | Ref Range | Performed | Pathologist | | | | | At | Signature | + + + + + + | INR | 1.3Comment: REFERENCE | | [facility] | | | | RANGE:0.9 [...] [place] | | | | | | [address] | | | | + + + + + + + + | Specimen | + + | Blood | + + + + + + + | Performing | Address | City/State/Zipcode | Phone Number | | Organization | | | | + + + + + | [facility] | [address] | [place] [address] | [phone] | + + + + + Comprehensive [...] 9 (L)Comment: GFR <60: | >60 | [facility] | | | GFR | [...] performed at [facility], [address] | | | | | | [facility], | | | | | | [place] [address] | | | | + + + + + + + + | Specimen | + + | Blood | + + + + + + + | Performing | Address | City/State/Zipcode | Phone Number | | Organization | | | | + + + + + | [facility] | [address] | [place] [address] | [phone] | + + + + + CBC [...] Blvd, | | | | | | [place] [address] | | | | | |Testing performed at [facility], [address], [place] [address] | | | | | | | | | | + + +---- + + + + + | Specimen | + + | Blood | + + + + + + + | Performing | Address | City/State/Zipcode | Phone Number | | Organization | | | | + + + + + | [facility] | [address] | [place] [address] | [phone] | + + + + + Protime [...] performed at [facility] | | | | | | [address] [facility];[place], [place] | | | | | | [address] | | | | + + + + + + + + | Specimen | + + | Blood | + + + + + + + | Performing | Address | City/State/Zipcode | Phone Number | | Organization | | | | + + + + + | [facility] | [address] | [place] [address] | [phone] | + + + + + XR [...] is | | | punctured with an 5-Khmer thoracentesis catheter. Fluid is aspirated | | [...] the pleural space is punctured with an 5-Khmer | | thoracentesis catheter. Fluid is aspirated [...] Special | Testing performed at | | [facility] | | | Requests | [facility];[address] | | LABORATORY | | | | [address];[place] [address] | | | | + + + + + + | Gram Stain | NO CELLS OR ORGANISMS | | [facility] | | | Result | SEEN | | LABORATORY | | + + + + + + | RESULT | NO GROWTH 4 DAYS | | [facility] | | | | | | LABORATORY | | + + + + + + | RESULT | Testing performed at | | [facility] | | | | TCL, [address] [facility] | | LABORATORY | | | | [place] | | | | | | [id number]: Testing | | | | | | performed at [facility], [address] | | | | | | [place] | | | | | | [address] | | | | + + + + + + + + | Specimen | + + | Body Fluid - Pleural | | fluid specimen | | (specimen) | + + + + + + + | Performing | Address | City/State/Zipcode | Phone Number | | Organization | | | | + + + + + | [facility] | [address] | [place] [address] | [phone] | + + + + + Protein, Body Fluid (11/07/2018 3:15 PM PDT) + + + + + + | Component | Value | Ref Range | Performed | Pathologist | | | | | At | Signature | + + + + + + | Protein, BF | 3.4Comment: This is not | g/dL | [facility] | | | | a vertical boring mill operator validated | | LABORATORY | | | | sample type for this | | | | | | method. No | | | | | | referenceranges have | | | | | | been established.Testing | | | | | | performed at [facility], [address] | | | | | [address], | | | | | | [place] [address] | | | | + + + + + + | SOURCE | PLEURAL FLUIDComment: | | [facility] | | | | Testing performed at | | LABORATORY | | | | [facility];[address] [facility] | | | | | | [address];[place] [address] | | | | + + + + + + + + | Specimen | + + | Body Fluid | + + + + + + + | Performing | Address | City/State/Zipcode | Phone Number | | Organization | | | | + + + + + | [facility] | [address] | [place] [address] | [phone] | + + + + + Lactate [...] [facility] | | | FLUID | a vertical boring mill operator validated | | LABORATORY | | | | sample type for this | | | | | | method. No | | | | | | referenceranges have | | | | | | been established.Testing | | | | | | performed at [facility], [address] | | | | | [address] [facility], | | | | | | [place] [address] | | | | + + + + + + + + | Specimen | + + | Body Fluid | + + + + + + + | Performing | Address | City/State/Zipcode | Phone Number | | Organization | | | | + + + + + | [facility] | [address] [facility] | [place] [address] | [phone] | + + + + + Glucose, Body Fluid (11/07/2018 3:15 PM PDT) + + + + + + | Component | Value | Ref Range | Performed | Pathologist | | | | | At | Signature | + + + + + + | Glucose | 96Comment: This is not a | mg/dL | [facility] | | | Fluid | vertical boring mill operator validated | | LABORATORY | | | | sample type for this | | | | | | method. No | | | | | | referenceranges have | | | | | | been established.Testing | | | | | | performed at [facility], [address] | | | | | [address], | | | | | | [place] [address] | | | | + + + + + + | SOURCE | PLEURAL FLUIDComment: | | [facility] | | | | Testing performed at | | LABORATORY | | | | [facility];[address] | | | | | | [address];[place] [address] | | | | + + + + + + + + | Specimen | + + | Body Fluid | + + + + + + + | Performing | Address | City/State/Zipcode | Phone Number | | Organization | | | | + + + + + | [facility] | [address] | [place] [address] | [phone] | + + + + + Cell [...] + + + | BF RBC | <20878 | /mm3 | [facility] | | | [...] performed at [facility] | | LABORATORY | | | | [address];[place], [place] | | | | | | [address] | | | | + + + + + + + + | Specimen | + + | Body Fluid | + + + + + + + | Performing | Address | City/State/Zipcode | Phone Number | | Organization | | | | + + + + + | [facility] | [address] | [place] [address] | [phone] | + + + + + Amylase, Body Fluid (11/07/2018 3:15 PM PDT) + + + + + + | Component | Value | Ref Range | Performed | Pathologist | | | | | At | Signature | + + + + + + | AMYLASE | 46Comment: This is not a | U/L | [facility] | | | FLUID | vertical boring mill operator validated | | LABORATORY | | | | sample type for this | | | | | | method. No | | | | | | referenceranges have | | | | | | been established.Testing | | | | | | performed at [facility], [address] | | | | | | [address] [facility], | | | | | | [place] [address] | | | | + + + + + + + + | Specimen | + + | Body Fluid | + + + + + + + | Performing | Address | City/State/Zipcode | Phone Number | | Organization | | | | + + + + + | [facility] | [address] | [place] [address] | [phone] | + + + + + Albumin, Body Fluid (11/07/2018 3:15 PM PDT) + + + + + + | Component | Value | Ref Range | Performed | Pathologist | | | | | At | Signature | + + + + + + | Albumin, | 2.0Comment: This is not | g/dL | [facility] | | | Fluid | a vertical boring mill operator validated | | LABORATORY | | | | sample type for this | | | | | | method. No | | | | | | referenceranges have | | | | | | been established.Testing | | | | | | performed at [facility], [address] | | | | | [address] [facility], | | | | | | [place] [address] | | | | + + + + + + + + | Specimen | + + | Body Fluid | + + + + + + + | Performing | Address | City/State/Zipcode | Phone Number | | Organization | | | | + + + + + | [facility] | [address] | [place] [address] | [phone] | + + + + + Medical [...] preparation was | | | performed by [employer], [address] [employer] | | | [place] [address] (Procurement Engineer: Matt Claudio D.O.; CLIA#: | | | [id number]).Professional interpretation was performed by [employer] | | | [employer], | | | [place] [address] (Procurement Engineer: Daniel Larson M.D.; CLIA#: | | | [id number]).6 Diagnostician: Enrrique Nichols | | | CT(ASCP)CytotechnologistDiagnostician: [...] | | |Technical preparation was performed by [employer], [address] [place] [address] (Procurement Engineer: Matt Claudio D.O.; CLIA#: [id number]). | | |Professional interpretation was performed by [employer], [address] [address] (Procurement Engineer: Daniel Larson M.D.; CLIA#: [id number]).6 | | | | | |Diagnostician: Enrrique BROOKS(ASCP) | | |Independent [employer] Consultant | | |Diagnostician: Daniel Larson MD | [...] | [facility];[address] [facility] | | | | | | Blvd;[place] [address] | | | | + + + + + + + + | Specimen | + + | Blood | + + + + + + + | Performing | Address | City/State/Zipcode | Phone Number | | Organization | | | | + + + + + | [facility] | [address] | [place] [address] | [phone] | + + + + + ECG [...] INR | 1.3Comment: REFERENCE | | [facility] | | | | RANGE:0.9 [...] | | | | | | [address] [facility];[place], [place] | | | | | | [address] | | | | + + + + + + + + | Specimen | + + | Blood | + + + + + + + | Performing | Address | City/State/Zipcode | Phone Number | | Organization | | | | + + + + + | [facility] | [address] | [place] [address] | [phone] | + + + + + Platelet Count (11/07/2018 4:03 AM PDT) + + + + + + | Component | Value | Ref Range | Performed | Pathologist | | | | | At | Signature | + + + + + + | Platelet | 185Comment: Testing | 150 - 400 K/uL | [facility] | | | Count | performed at [facility], [address] | | LABORATORY | | | | [address], | | | | | | [place] [address] | | | | + + + + + + + + | Specimen | + + | Blood | + + + + + + + | Performing | Address | City/State/Zipcode | Phone Number | | Organization | | | | + + + + + | [facility] | [address] | [place] [address] | [phone] | + + + + + PTT (11/07/2018 4:03 AM PDT) + + + + + + | Component | Value | Ref Range | Performed | Pathologist | | | | | At | Signature | + + + + + + | PTT | 27Comment: Testing | 23 - 32 seconds | ANDREY | | | | performed at [facility];[address] | | LABORATORY | | | | [address];[place] | | | | | | [address] | | | | + + + + + + + + | Specimen | + + | Blood | + + + + + + + | Performing | Address | City/State/Zipcode | Phone Number | | Organization | | | | + + + + + | [facility] | [address] | [place] [address] | [phone] | + + + + + Lactate Dehydrogenase (11/07/2018 4:03 AM PDT) + + + + + + | Component | Value | Ref Range | Performed | Pathologist | | | | | At | Signature | + + + + + + | LDH TOTAL | 202Comment: Testing | 120 - 246 U/L | ANDREY | | | | performed at [facility];[address] | | LABORATORY | | | | [address];[place] | | | | | | [address] | | | | + + + + + + + + | Specimen | + + | Blood | + + + + + + + | Performing | Address | City/State/Zipcode | Phone Number | | Organization | | | | + + + + + | [facility] | [address] | [place] [address] | [phone] | + + + + + Magnesium [...] | LABORATORY | | | | [address];[place], [place] | | | | | | [address] | | | | + + + + + + + + | Specimen | + + | Blood | + + + + + + + | Performing | Address | City/State/Zipcode | Phone Number | | Organization | | | | + + + + + | [facility] | [address] | [place] [address] | [phone] | + + + + + Comprehensive [...] 7 (L)Comment: GFR <60: | >60 | [facility] | | | GFR | [...] performed at [facility], [address] | | | | | | [facility], | | | | | | [place] [address] | | | | + + + + + + + + | Specimen | + + | Blood | + + + + + + + | Performing | Address | City/State/Zipcode | Phone Number | | Organization | | | | + + + + + | [facility] | [address] | [place] [address] | [phone] | + + + + + Troponin I (11/06/2018 9:54 PM PDT) + + + + + + | Component | Value | Ref Range | Performed | Pathologist | | | | | At | Signature | + + + + + + | Troponin I | 0.045 (H)Comment: 0.04 | 0.00 - 0.04 | [facility] | | | | ng/mL [...] [address] | | | | | | [address];[place] [address] | | | | + + + + + + + + | Specimen | + + | Blood | + + + + + + + | Performing | Address | City/State/Zipcode | Phone Number | | Organization | | | | + + + + + | [facility] | [address] | [place] [address] | [phone] | + + + + + Protime [...] performed at [facility] | | | | | | [address];[place], [place] | | | | | | [address] | | | | + + + + + + + + | Specimen | + + | Blood | + + + + + + + | Performing | Address | City/State/Zipcode | Phone Number | | Organization | | | | + + + + + | [facility] | [address] | [place] [address] | [phone] | + + + + + ECHO [...] (H)Comment: 0.04 | 0.00 - 0.04 | [facility] | | | | ng/mL [...] | | [facility];[address] [place] [address] | | | | | | [facility];[place] [address] | | | | + + + + + + + + | Specimen | + + | Blood | + + + + + + + | Performing | Address | City/State/Zipcode | Phone Number | | Organization | | | | + + + + + | [facility] | [address] | [place] [address] | [phone] | + + + + + Magnesium [...] | | | | | [place] [address] | | | | + + + + + + + + | Specimen | + + | Blood | + + + + + + + | Performing | Address | City/State/Zipcode | Phone Number | | Organization | | | | + + + + + | [facility] | [address] | [place] [address] | [phone] | + + + + + documented [...]
--- OUTSIDE RECORDS SUMMARY | ~2019-03-08 | XMS | Encounter Summary ---
Demographics + + + | Address | [address] | | | [place] [address] | + + + | Home Phone [...] | | | | | [place] [address] | | + + + + + | Thania Mallory | ECON | [address] | | | | | [place] [address] | | + + + + + | Deidra Weldon | ECON | [address] | | | | | [place] | | | | | [address] | | + + + + + Care Team Providers + +------+ + | Care High Pressure Cleaner Name | Role | Phone | [...] | | [address] | [facility] | | | | | [place], | [place], [place] | | | | | [place] [address] | [address] | | | | | [phone] | | | +--------+ + + + [...] Denise | | | | | | [place] | | | | | | [address] | | | | | | [phone] | | | | | | | | +--------+ + + + + documented as of this encounter Visit Diagnoses Not on filedocumented in this encounter"
--- OUTSIDE RECORDS SUMMARY | ~2019-03-08 | XMS | Encounter Summary ---
Demographics + + + | Address | [address] | | | [place] [address] | + + + | Home Phone [...] + | Author | [facility] | | | and [place] | + + + | Organization | [facility] | [...] Providers + +------+ + | Care Senior Vice President And Chief Information Officer Name | Role | Phone | [...] | Encounter | JOY | MD Emanuel [address] | | | | | [address] | [facility] | | | | [address] | [place], [place] | | | | | [place], [place] | [address] | | | | | [address] | [phone] | | | | | [phone] | | | +--------+ + + + [...] [address] | | | | | | [place] [address] | | | | | | [phone] | | | | | | | | +--------+---------+ + + + documented as of this encounter Visit Diagnoses Not on filedocumented in this encounter"
--- OUTSIDE RECORDS SUMMARY | ~2019-03-08 | XMS | Encounter Summary ---
Demographics + + + | Address | [address] | | | [place] [address] | + + + | Home Phone [...] | | | | | [place] [address] | | + + + + + | Thania Mallory | ECON | [address] | | | | | [place] [address] | | + + + + + | Deidra Weldon | ECON | [address] | | | | | [place] | | | | | [address] | | + + + + + Care Team Providers + +------+ + | Care Director Banking Name | Role | Phone | + [...] | | | [place], | [place] [address] | | | | | [place] [address] | [phone] | | | | | | | [...] Denise | | | | | | [place], [place] | | | | | | [address] | | | | | | [phone] | | | | | | | | +--------+ + + + + documented as of this encounter Visit Diagnoses Not on filedocumented in this encounter"
--- OUTSIDE RECORDS SUMMARY | ~2019-03-08 | XMS | Encounter Summary ---
Demographics + + + | Address | [address] | | | [place] [address] | + + + | Home Phone [...] Team Providers + +------+ + | Care Concrete Foreman Name | Role | Phone | [...] [address] | renal disease) ([facility]) | | | | [address] | [place], [address] | (Primary Dx) | | | | [place], [place] | [place], [place] | | | | | [address] | [address] | | | | | [phone] | | | +--------+ + + + [...] of documents of Clinic Attendance here at [facility], with the account development executive, Elisabeth Quijano RN. Outpatient Prescriptions Marked as [...] A&O x3, at this point. 3. [facility] given her every opportunity to succeed here at the Clinic in [place]. 4. Will recheck her in 2 weeks. : [place] Fina documented in thi s encounter Plan [...] | | | | | | [place] [address] | | | | | | [phone] | | | | | | | | +--------+---------+ + + + documented as of this encounter Visit Diagnoses + + | Diagnosis | + + | ESRD (end stage renal disease) (HCC) - Primary End stage renal disease | + + documented in this encounter"
--- OUTSIDE RECORDS SUMMARY | ~2019-03-08 | XMS | Encounter Summary ---
Demographics + + + | Address | [address] | | | [place] [address] | + + + | Home Phone [...] + | Author | [facility] | | | and Josephana | + + + | Organization | [facility] [...] Team Providers + +------+ + | Care Phytochemistry Professor Name | Role | Phone | [...] | | | DEPARTMENT [address] [place] | [address] | [address] | [place] [address] | | | | | [place], [place] | [phone] | | | | | [address] | | | | | | [phone] | | | +--------+ + + + [...] | | | | | [place] [address] | | | | | | [phone] | | | | | | | | +--------+---------+ + + + documented as of this encounter Visit Diagnoses Not on filedocumented in this encounter"
--- OUTSIDE RECORDS SUMMARY | ~2019-03-08 | XMS | Encounter Summary ---
Demographics + + + | Address | [address] | | | [place] [address] | + + + | Home Phone [...] | | | | | [place] [address] | | + + + + + | Thania Mallory | ECON | [address] | | | | | [place] [address] | | + + + + + | Deidra Weldon | ECON | [address] | | | | | [place] | | | | | [address] | | + + + + + [...] Nephrology at | MD Emanuel [address] | | | | | Alexander | [facility] | | | | | [facility] | [place], [place] | | | | | [address] [facility] | [address] | | | | | Mailcode: DCH7 | [phone] | | | | | Alexander | | | | | | [place], [place] | | | | | | [address] | | | | | | [phone] | | | +--------+ + + + [...] Ave | | | | | | [place], [place] | | | | | | [address] | | | | | | [phone] | | | | | | | [...] | [address] | [place] [address] | [phone] | | HOSPITAL | | | | [...] [address] | [place] [address] | [phone] | | HOSPITAL | | | | [...] + + + + + | [facility] | [address] | [place] [address] | [phone] | | HOSPITAL | | | | [...] + + + + + | [facility] | [address] | [place] [address] | [phone] | | HOSPITAL | | | | [...] | [address] | [place] [address] | [phone] | | HOSPITAL | | | | [...] [address] | [place] [address] | [phone] | | HOSPITAL | | | | + + + + + documented in this encounter Visit Diagnoses Not on filedocumented in this encounter"
--- OUTSIDE RECORDS SUMMARY | ~2019-03-08 | XMS | Encounter Summary ---
Demographics + + + | Address | [address] | | | [place] [address] | + + + | Home Phone [...] | | | | | [place] [address] | | + + + + + | Thania Mallory | ECON | [address] | | | | | [place] [address] | | + + + + + | Deidra Weldon | ECON | [address] | | | | | [place] | | | | | [address] | | + + + + + Care Team Providers + +------+ + | Care Tosser Name | Role | Phone | + [...] | | | | [address] [place] | [facility] | | | | | Park [facility], | [place], [place] | | | | | [place] [address] | [address] | | | | | [phone] | | | +--------+ + + + [...] Denise | | | | | | [place], [place] | | | | | | [address] | | | | | | [phone] | | | | | | | | +--------+ + + + + documented as of this encounter Visit Diagnoses Not on filedocumented in this encounter"
--- OUTSIDE RECORDS SUMMARY | ~2019-03-08 | XMS | Encounter Summary ---
Demographics + + + | Address | [address] | | | [place] [address] | + + + | Home Phone [...] | | | | | [place] [address] | | + + + + + | Thania Mallory | ECON | [address] | | | | | [place] [address] | | + + + + + | Deidra Weldon | ECON | [address] | | | | | [place] | | | | | [address] | | + + + + + Care Team Providers + +------+ + | Care Export Freight Manager Name | Role | Phone | [...] | | | | | Park [address] [place], | [place], [place] | | | | | [place] [address] | [address] | | | | | [phone] | | | +--------+ + + + [...] Denise | | | | | | [place], [place] | | | | | | [address] | | | | | | [phone] | | | | | | | | +--------+ + + + + documented as of this encounter Visit Diagnoses Not on filedocumented in this encounter"
--- OUTSIDE RECORDS SUMMARY | ~2019-03-08 | XMS | Encounter Summary ---
Demographics + + + | Address | [address] | | | [place] [address] | + + + | Home Phone [...] | | | | | [place] [address] | | + + + + + | Thania Mallory | ECON | [address] | | | | | [place] [address] | | + + + + + | Deidra Weldon | ECON | [address] | | | | | [place] | | | | | [address] | | + + + + + Care Team Providers + +------+ + | Care Lens Grinder Name | Role | Phone | [...] Rd | | | | | | [place], [place] | | | | | | [address] | | | +--------+ + + + [...] Denise | | | | | | [place], [place] | | | | | | [address] | | | | | | [phone] | | | | | | | | +--------+ + + + + documented as of this encounter Visit Diagnoses [facility]"
--- OUTSIDE RECORDS SUMMARY | ~2019-03-08 | XMS | Encounter Summary ---
Demographics + + + | Address | [address] | | | [place] [address] | + + + | Home Phone [...] Author | [facility] | | | and Josephana | + + + | Organization | [facility] | [...] Providers + +------+ + | Care Chemical Laboratory Assistant Name | Role | Phone [...] NEPHROLOGY [address] | M, DO [address] | | | | | [address] | [place] | | | | | [place], [place] | [place], [place] | | | | | [address] | [address] | | | | | [phone] | | | +--------+ + + + [...] [place] | | | | | | [place] [address] | | | | | | [phone] | | | | | | | | +--------+---------+ + + + documented as of this encounter Visit Diagnoses Not on filedocumented in this encounter"
--- OUTSIDE RECORDS SUMMARY | ~2019-03-08 | XMS | Encounter Summary ---
Demographics + + + | Address | [address] | | | [place] [address] | + + + | Home Phone [...] [facility] | | | and Josephana | + + + | Organization | [facility] | [...] Team Providers + +------+ + | Care Doorperson Name | Role | Phone | + [...] Authorized | | Nephrology | Diagnoses | Joy, | Conrado, | | | | | ESRD (end | Sudhakar Castellanos, | Jorje Obrien DO | | | | | stage renal | [address] | [address] [place] [address] | | | | | disease) | [address]un [place] | [place] | | | | | ([facility]) | [address] | [address] [place] | | | | | Anemia in | [place], [place] | [place], [place] | | | | | ESRD | [address] | [address] Phone: | | | | | (end-stage | Phone: | [phone] | | | | | renal | [phone] | Fax: | | | | | disease) | Fax: | [phone] | | | | | ([facility]) | [phone] | | | | | | Procedures | | | | | | | [place] ESRD | | | | | | [...] West | renal disease) ([facility]) | | | | [address] | [place], [address] | (Primary Dx) | | | | [place], [place] | [place], [place] | | | | | [address] | [address] | | | | | [phone] | | | +--------+ + + + [...] Will recheck her in 2 weeks. : [facility] Jonathan Alonso MD, PhD documented in thi s [...] [place] | | | | | | [place] [address] | | | | | | [phone] | | | | | | | | +--------+---------+ + + + documented as of this encounter Visit Diagnoses + + | Diagnosis | + + | ESRD (end stage renal disease) (HCC) - Primary End stage renal disease | + + documented in this encounter"
--- OUTSIDE RECORDS SUMMARY | ~2019-03-08 | XMS | Encounter Summary ---
Demographics + + + | Address | [address] | | | [place] [address] | + + + | Home Phone [...] | Author | [facility] | | | and Josephana | + + + | Organization | [facility] | [...] Providers + +------+ + | Care Assembler Mechanical Ordnance Name | Role | Phone | + [...] | ([facility]) | [address] [place] | [place], | | | | | | [place], [place] | [place] [address] | | | | | | [address] | Phone: | | | | | | Phone: | [phone] | | | | | | [phone] | Fax: | | | | | | Fax: | [phone] | | | | | | [phone] | | +--------+ + + + + + Encounter Details +--------+ + + + + | Date | Type | Department | Care Team | Description | +--------+ + + + + | 02/03/ | Orders Only | [facility] [place] | Jorje Camp | ESRD (end stage | | 2013 | | NEPHROLOGY [address] | M, DO | renal disease) ([facility]) | | | | [address] | [place], [address] | (Primary Dx) | | | | [place], [place] | [place], [place] | | | | | [address] | [address] | | | | | [phone] | | | +--------+ + + + [...] [place] | | | | | | [place] [address] | | | | | | [phone] | | | | | | | [...] | Referral | e | renal disease) ([facility]) | | | Referral | | | | | + + +--------+ + + documented as of this encounter Visit Diagnoses + + | Diagnosis | + + | ESRD (end stage renal disease) ([facility]) - Primary End stage renal disease | + + documented in this encounter"
--- OUTSIDE RECORDS SUMMARY | ~2019-03-08 | XMS | Encounter Summary ---
Demographics + + + | Address | [address] | | | [place] [address] | + + + | Home Phone [...] Author | [facility] | | | and Josephana | + + + | Organization | [facility] [...] Team Providers + +------+ + | Care Salvage Determiner Name | Role | Phone | + [...] stage renal | [address] | [address] [place] [address] | | | | | disease) | [address]un [place] | [place] | | | | | (HCC) | [address] | [address] [place] | | | | | Anemia in | [place], [place] | [place], [place] | | | | | ESRD | [address] | [address] Phone: | | | | | (end-stage | Phone: | [phone] | | | | | renal | [phone] | Fax: | | | | | disease) | Fax: | [phone] | | | | | ([facility]) | [phone] | | | | | | Procedures | | | | | | | [place] OFFICE | | | | | | [...] | | [address] | [place], [address] | (Primary Dx) | | | | [place], [place] | [place], [place] | | | | | [address] | [address] | | | | | [phone] | | | +--------+ + + + [...] Fina charge nurse, Elisabeth Quijano RN, and [facility] medical student Yefri Bean MS III, about lifestyle modification, compliance, and her potential risk for increased her vascular morbidity, mortality. 2. 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 I discussed this wi th the renal COMPLIANCE TESTER. 3. Monthly lab was reviewed with the patient. 4. Long-term prognosis remains poor, due to her poor to no insight into her chronic health conditions, or health maintenance. : [place] Fina Alonso MD, PhD documented in thi [...] [address] | | | | | | [phone] | | | | | | | | +--------+---------+ + + + documented as of this encounter Visit Diagnoses + + | Diagnosis | + + | ESRD (end stage renal disease) (HCC) - Primary End stage renal disease | + + documented in this encounter"
--- OUTSIDE RECORDS SUMMARY | ~2019-03-08 | XMS | Encounter Summary ---
Demographics + + + | Address | [address] | | | [place] [address] | + + + | Home Phone [...] | | | | | [place] [address] | | + + + + + | Thania Mallory | ECON | [address] | | | | | [place] [address] | | + + + + + | Deidra Weldon | ECON | [address] | | | | | [place] | | | | | [address] | | + + + + + Care Team Providers + +------+ + | Care Linseed Oil Refiner Name | Role | Phone | [...] | Update | | | | [address] [facility] | [facility] | | | | | Park [facility], | [place], [place] | | | | | [place] [address] | [address] | | | | | [phone] | | | +--------+ + + + [...] [place] | | | | | | [address] | | | | | | [phone] | | | | | | | | +--------+ + + + + documented as of this encounter Visit Diagnoses Not on filedocumented in this encounter"
--- OUTSIDE RECORDS SUMMARY | ~2019-03-08 | XMS | Encounter Summary ---
Demographics + + + | Address | [address] | | | [place] [address] | + + + | Home Phone [...] | | | | | [place] [address] | | + + + + + | Thania Mallory | ECON | [address] | | | | | [place] [address] | | + + + + + | Deidra Weldon | ECON | [address] | | | | | [place] | | | | | [address] | | + + + + + Care Team Providers + +------+ + | Care Sign Wirer Name | Role | Phone | [...] | | | | [address] | [facility] | | | | | [address] [place], | [place], [place] | | | | | [place] [address] | [address] | | | | | [phone] | | | +--------+ + + + [...] | | | | | | [place] | | | | | | [address] | | | | | | [phone] | | | | | | | | +--------+ + + + + documented as of this encounter Visit Diagnoses Not on filedocumented in this encounter"
--- OUTSIDE RECORDS SUMMARY | ~2019-03-08 | XMS | Encounter Summary ---
Demographics + + + | Address | [address] | | | [place] [address] | + + + | Home Phone [...] [facility] | | | and Josephana | + + + | Organization | [facility] [...] Team Providers + +------+ + | Care Pyridine Recovery Operator Name | Role | Phone | [...] NEPHROLOGY [address] | M, DO [address] [place] | | | | | [address] | [place], [address] | | | | | [place], [place] | [place], [place] | | | | | [address] | [address] | | | | | [phone] | | | +--------+ + + + [...] Jennings - 12/29/2016 3:48 PM PDTOutside records: [facility] drug utilization revie w form confidential [...] [place] | | | | | | [place] [address] | | | | | | [phone] | | | | | | | | +--------+---------+ + + + documented as of this encounter Visit Diagnoses Not on filedocumented in this encounter"
--- OUTSIDE RECORDS SUMMARY | ~2019-03-08 | XMS | Encounter Summary ---
Demographics + + + | Address | [address] | | | [place] [address] | + + + | Home Phone [...] | [facility] | | | and Josephana | + + + | Organization | [facility] | [...] Providers + +------+ + | Care Business Banking Sales Assistant Name | Role | Phone | + +------+ + | Jonathan Alonso MD | PCP | | + +------+ + Encounter Details +--------+ + + + + | Date | Type | Department | Care Team | Description | +--------+ + + + + | 08/13/ | Emergency | [facility] | | | | 2019 | | MEDICAL CENTER | | | | | | EMERGENCY CENTER | | | | | | [address] | | | | | | [place], [place] | | | | | | [address] | | | | | | [phone] | | | +--------+ + + + [...] [place] | | | | | | [place] [address] | | | | | | [phone] | | | | | | | | +--------+---------+ + + + documented as of this encounter Visit Diagnoses Not on filedocumented in this encounter"
--- OUTSIDE RECORDS SUMMARY | ~2019-03-08 | XMS | Encounter Summary ---
Demographics + + + | Address | [address] | | | [place] [address] | + + + | Home Phone [...] | Author | [facility] | | | and Josephana | + + + | Organization | [facility] | | | [...] Team Providers + +------+ + | Care American History Professor Name | Role | Phone | [...] [address] | M, DO [address] [place] | | | | | [address] | [place], [address] | | | | | [place], [place] | [place], [place] | | | | | [address] | [address] | | | | | [phone] | | | +--------+---------+ + + + [...] [place] | | | | | | [place] [address] | | | | | | [phone] | | | | | | | | +--------+---------+ + + + documented as of this encounter Visit Diagnoses + + | Diagnosis | + + | ESRD (end stage renal disease) (HCC) - Primary End stage renal disease | + + documented in this encounter"
--- OUTSIDE RECORDS SUMMARY | ~2019-03-08 | XMS | Encounter Summary ---
Demographics + + + | Address | [address] | | | [place] [address] | + + + | Home Phone [...] | | | | | [place] [address] | | + + + + + | Thania Mallory | ECON | [address] | | | | | [place] [address] | | + + + + + | Deidra Louise | ECON | [address] | | | | | [place] | | | | | [address] | | + + + + + Care Team Providers + +------+ + | Care Truck Body Builder Apprentice Name | Role | Phone | [...] | | (HCC) [facility] | Elias | [place] | | | | | ([address] | [address] | Mailcode: | | | | | nlein | [place], [place] | [place] | | | | | purpura) | [address] | [place] | | | | | nephritis | Phone: | [place], [place] | | | | | (HCC) | [phone] | [address] | | | | | Hemodialysis | Fax: | Phone: | | | | | status | [phone] | [phone] | | | | | ([facility]) | | Fax: | | | | | Chronic | | [phone] | | | | | kidney | | | | | | | disease, | | | | | | | stage V | | | | | | | ([facility]) | | | | | | [...] | | | [address] | [facility] | | | | | Park [facility], | [place], [place] | | | | | [place] [address] | [address] | | | | | [phone] | | | +--------+ + + + [...] [place] | | | | | | [address] | | | | | | [phone] | | | | | | | [...] | | | | | ([facility]) Chronic | | | | | | kidney disease, | | | | | | stage V ([facility]) | | + +------+--------+ + + [...] BSA | | | | | | (CORRY Z | | | | | | [...] Interface, Cardiology Results - 01/20/2015 2:35 PM [facility] Echocardiography Laboratory | | [address] | | [place] [address] | | ; | | [id number] | | | | Transthoracic Echocardiogram Report | | | | | | NAME: DARA LOUISE Study Date: 01/20/2015 1:18:29 PM | | Order #: [id number] ACC #: [id number] | | | | | | : [...] on 01/20/2015 at 2:35:17 PM | | [employer] Worker: YARITZA [address]LINE [address] | | | | | | cc: | | | | | | Modes utilized | | TTE 76248; Spectral Doppler 89493; Color flow Doppler 43458; | | | | | | | | Final | + + + + + + + | Performing | Address | City/State/Zipcode | Phone Number | | Organization | | | | + + + + + | [facility] | [address] | [place], [place] | | | CARDIOLOGY | [address] | [address] | | + + + + + [...] | + + + + + | [facility] | [address] | [place] [address] | | | SERVICES, SPECIAL | [address] [...] + | TILA | [address] | [place] [address] | | | DIAGNOSTIC | [address] [...] + | [facility] - | [address] | [place] [address] | | | [place] | | | | + + + [...] + | [facility] - | [address] | [place] [address] | | | [place] | | | [...] + | [facility] - | [address] | [place] [address] | | | [place] | | | [...] + | [facility] - | [address] | [place] [address] | | | [place] | | | | + + + [...] by | | | | | | [id number] | | | | | | Pippa Drew, [facility] | | | | | | [address] | | | | | | [phone].[employer]. | | | | | | Faisal [...] [facility] | [address] | [place], [place] | | | UN[facility] INT[facility] | | [address] | | + + + + + [...] | + + + + + | [facility] [facility] - | [address] | [place] [address] | | | [place] | | | [...] by | | | | | | [email or web address] [id number] | | | | | | [facility] | | | | | | [address] | | | | | | [phone].[email or web address]. | | | | | | Faisal [...] [facility] | [address] | [place], [place] | | | UN[facility] P[facility] INT[facility] | | [address] | | + + + + + [...] [facility] | [address] | [place] [address] | | | SERVICES, CORE | PARK [...] [place] | [address] | [place] [address] | | | SERVICES, CORE | PARK [...] | + + + + + | [facility] | [address] | [place] [address] | | | SERVICES, CORE | PARK [...] | + + + + + | [email or web address] | [address] [facility] [facility] | [place] [address] | | | SERVICES, CORE | LONG [...] [facility] | [address] | [place] [address] | | | HOMERO LAN | LONG [...] | | | LABORATORY | | | LITHUANIAN | | | SERVICES, | | | [...] | + + + + + | [facility] | [address] | [place] [address] | | | SERVICES, CORE | LONG [...]
--- OUTSIDE RECORDS SUMMARY | ~2019-03-08 | XMS | Encounter Summary ---
Demographics + + + | Address | [address] | | | [place] [address] | + + + | Home Phone [...] Author | [facility] | | | and Josephana | + + + | Organization | [facility] | [...] Providers + +------+ + | Care Contract Administration Coordinator Name | Role | Phone | [...] | | [place] | [place] [address] | | | | | [address] | [phone] | | | | | [phone] | | | +--------+ + + + [...] [place] | | | | | | [place] [address] | | | | | | [phone] | | | | | | | [...] 0.39 m/s | | | MV Dec Reeves: 9.46 m/s2 MV DecT: 106.01 ms MV E Shahid: 1.00 | | | m/s MV E/A Ratio: 2.54 E/E' Sept: 23.82 E' Lat: 0.08 m/s | | | E' Sept: 0.04 m/s RAP: 15 mmHg RV S': 0.11 m/s RVSP: | | | 67.64 mmHg TR maxP.64 mmHg TR Vmax: 3.61 m/s | | | Scrub Technician: Authenticated by: René Noonan MD Report Date/Time: | | | -- [id number]:15:25 | | + + + + + [...] (A-L): 31.60 | | ml/m2LAAs A2C: 18.56 ql2AQCOA A-L A2C: 58.49 mlLAESV MOD A2C: 54.57 mlLALs A2C: | | 5.00 cmLAAs A4C: 17.96 [id number] A-L A4C: 52.99 mlLAESV MOD A4C: 44.93 mlLALs A4C: | | 5.18 cmLAESV(MOD BP): 49.83 mlRAAs: 18.33 ip9IXTNP A-L: 57.01 mlRAESV MOD: | | 56.24 mlRALs: 5.02 cmTAPSE: 1.98 cmAV Env.Ti: 227.35 msAV maxP.22 mmHgAV | | meanP.25 mmHgAV Vmax: 1.59 m/Elizabeth Vmean: 1.06 m/Elizabeth VTI: 24.30 cmAVA Vmax: | | 2.68 cm2AVA (VTI): 2.73 fg7PCFY Vmax: 0.00 cm2/m2AVAI (VTI): 0.00 cm2/m2LVOT | | Env.Ti: 210.72 msLVOT maxP.99 mmHgLVOT meanP.87 mmHgLVSI Dopp: 37.17 | | ml/m2LVSV Dopp: 66.54 mlLVOT Vmax: 1.41 m/sLVOT Vmean: 1.03 m/sLVOT VTI: 21.88 | | cmMV A Shahid: 0.39 m/sMV Dec Reeves: 9.46 m/s2MV DecT: 106.01 msMV E Shahid: 1.00 | | m/sMV E/A Ratio: 2.54E/E' Sept: 23.82E' Lat: 0.08 m/sE' Sept: 0.04 m/sRAP: 15 | | mmHgRV S': 0.11 m/sRVSP: 67.64 mmHgTR maxP.64 mmHgTR Vmax: 3.61 m/s | | Scrub Technician:Authenticated by: René Noonan MDReport Date/Time: -- [id number]:15:25 | | IMPRESSION: 1. Overall left ventricular [...] A Shahid: 0.39 m/s | |MV Dec Reeves: 9.46 m/s2 | |MV DecT: 106.01 ms | |MV E Shahid: 1.00 m/s | |MV E/A Ratio: 2.54 | |E/E' Sept: 23.82 | |E' Lat: 0.08 m/s | |E' Sept: 0.04 m/s | |RAP: 15 mmHg | |RV S': 0.11 m/s | |RVSP: 67.64 mmHg | |TR maxP.64 mmHg | |TR Vmax: 3.61 m/s | | | |Scrub Technician: | |Authenticated by: René Noonan MD | |Report Date/Time: -- [id number]:15:25 | | | |IMPRESSION: | |1. Overall [...]
--- OUTSIDE RECORDS SUMMARY | ~2019-03-08 | XMS | Encounter Summary ---
Demographics + + + | Address | [address] | | | [place] [address] | + + + | Home Phone [...] | Author | [facility] | | | and Josephana | + + + | Organization | [facility] | [...] Team Providers + +------+ + | Care Dramatic Critic Name | Role | Phone | [...] | disease | [address] | [address] | | | | | (HCC) | [place], | | | | | Procedures | [place], [place] | [place] [address] | | | | | [place] | [address] | Phone: | | | | | ANASTOMOSIS, | Phone: | [phone] | | | | | AV,[place] SITE | [phone] | Fax: | | | | | | Fax: | [phone] | | | | | | [phone] | | +--------+ + + + + [...] | | | | | disease) | [place], [place] | [address] | | | | | ([facility]) | [address] [place] | [place], | | | | | | [place], [place] | [place] [address] | | | | | | [address] | Phone: | | | | | | Phone: | [phone] | | | | | | [phone] | Fax: | | | | | | Fax: | [phone] | | | | | | [phone] | | +--------+ + + + + + Encounter Details +--------+---------+ + + + | Date | Type | Department | Care Team | Description | +--------+---------+ + + + | 12/18/ | Office | [facility] | Blake | End stage renal | | 2013 | Visit | SURGERY [address] | MD Antonieta, FACS [address] | disease (HCC) | | | | [place], [place] | [address] [facility] | (Primary Dx) | | | | [address] | [place] [address] | | | | | [phone] | [phone] | | | | | | | [...] before your surgery. This means No coffee, kenyn er, juice or toast on the morning [...] Care ? Shahid Camargo Who is your Manufacturing Engineer Paint/Kidney Specialist ? Dr. Camp When was the current dialysis access placed? July [address] [facility] in [place] What problems are there with the current dialysis access? 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 Patient used to have PD catheter for dialysis 2012--[facility] in [place] . Came out Jul, 2013 . Then got RIGHT IJ catheter. Also got catheter at [facility]. Live in [place]. Go es to [facility] in [place] for dialysis. Now needs AVF. Is RIGHt hand dominant. No pains in hands. 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 Currently on [facility] for kidney transplant. Wants AVF [...] ed for acceptable candidacy. Will f/u with [facility] Transplant Team. Shahid Cruz Raman's [...] REPORT: PATIENT NAME : Dara Weldon EQUIPMENT: SonbTendo M-Turbo with 10-5 mHertz probe. INDICATIONS: Dialysis [...] [place] | | | | | | [place] [address] | | | | | | [phone] | | | | | | | [...]
--- OUTSIDE RECORDS SUMMARY | ~2019-03-08 | XMS | Encounter Summary ---
Demographics + + + | Address | [address] [place] [address] | | | [place] [address] | + + + | Home Phone [...] | | | | | [place] [address] | | + + + + + | Thania Mallory | ECON | [address] | | | | | [place] [address] | | + + + + + | Deidra Weldon | ECON | [address] | | | | | [place] | | | | | [address] | | + + + + + Care Team Providers + +------+ + | Care Crown Ironer Operator Name | Role | Phone | [...] | | | | | [address] [place], | [place], [place] | | | | | [place] [address] | [address] | | | | | [phone] | | | +--------+ + + + [...] Denise | | | | | | [place], [place] | | | | | | [address] | | | | | | [phone] | | | | | | | | +--------+ + + + + documented as of this encounter Visit Diagnoses Not on filedocumented in this encounter"
--- OUTSIDE RECORDS SUMMARY | ~2019-03-08 | XMS | Encounter Summary ---
Demographics + + + | Address | [address] | | | [place] [address] | + + + | Home Phone [...] | | | | | [place] [address] | | + + + + + | Thania Mallory | ECON | [address] | | | | | [place] [address] | | + + + + + | Deidra Weldon | ECON | [address] | | | | | [place] | | | | | [address] | | + + + + + Care Team Providers + +------+ + | Care Cotton Weigher Name | Role | Phone | [...] | Nephrology at | MD Emanuel [address] [facility] | f/u appt on | | | | [place] | [address] | 03/16/12 to [place]) | | | [facility] | [facility] [place] | | | | | [address] | [address] | | | | | Mailcode: DCAnna | [phone] | | | | | [place] | | | | | | [place], [place] | | | | | | [address] | | | | | | [phone] | | | +--------+ + + + [...] Denise | | | | | | [place], [place] | | | | | | [address] | | | | | | [phone] | | | | | | | | +--------+ + + + + documented as of this encounter Visit Diagnoses Not on filedocumented in this encounter"
--- OUTSIDE RECORDS SUMMARY | ~2019-03-08 | XMS | Encounter Summary ---
Demographics + + + | Address | [address] | | | [place] [address] | + + + | Home Phone [...] + | Author | [facility] | | | and Josephana | + + + | Organization | [facility] | [...] Team Providers + +------+ + | Care Scorekeeper Name | Role | Phone | + [...] | NEPHROLOGY [address] | renal disease) ([facility]) | | | | [address] | [address] [place] | (Primary Dx); | | | | [place], [place] | [place] [address] | Depression | | | | [address] | [phone] | | | | | [phone] | | | +--------+ + + + [...] [place] | | | | | | [place] [address] | | | | | | [phone] | | | | | | | | +--------+---------+ + + + documented as of this encounter Visit Diagnoses + + | Diagnosis | + + | ESRD (end stage renal disease) (HCC) - Primary End stage renal disease | + + | Depression Depressive disorder, not elsewhere classified | + + documented in this encounter"
--- OUTSIDE RECORDS SUMMARY | ~2019-03-08 | XMS | Encounter Summary ---
Demographics + + + | Address | [address] | | | [place] [address] | + + + | Home Phone [...] Author | [facility] | | | and Josephana | + + + | Organization | [facility] [...] Team Providers + +------+ + | Care Social Media Job Titles Name | Role | Phone [...] | | [address] | [place] | | | | | [place], [place] | [place], [place] | | | | | [address] | [address] | | | | | [phone] | | | +--------+--------+ + + + [...] | | | | | [place] [address] | | | | | | [phone] | | | | | | | | +--------+---------+ + + + documented as of this encounter Visit Diagnoses Not on filedocumented in this encounter"
--- OUTSIDE RECORDS SUMMARY | ~2019-03-08 | XMS | Encounter Summary ---
Demographics + + + | Address | [address] | | | [place] [address] | + + + | Home Phone [...] | [facility] | | | and Josephana | + + + | Organization | [facility] | | [...] | NEPHROLOGY [address] | [address] | | | | | [address] | [address] [place] | | | | | [place], [place] | [place] [address] | | | | | [address] | [phone] | | | | | [phone] | | | +--------+ + + + [...] form rec eived from Navin Casanova property field inspector, [facility] regarding housing, do s: 12/08/16. Sent to [...] [place] | | | | | | [place] [address] | | | | | | [phone] | | | | | | | | +--------+---------+ + + + documented as of this encounter Visit Diagnoses Not on filedocumented in this encounter"
--- OUTSIDE RECORDS SUMMARY | ~2019-03-08 | XMS | Encounter Summary ---
Demographics + + + | Address | [address] | | | [place] [address] | + + + | Home Phone [...] [facility] | | | and Josephana | + + + | Organization | [facility] | [...] Team Providers + +------+ + | Care Window Shade Cloth Sewer Name | Role | Phone | + [...] NEPHROLOGY [address] | M, DO [address] | | | | | [address] | [place] | | | | | [place], [place] | [place], [place] | | | | | [address] | [address] | | | | | [phone] | | | +--------+ + + + [...] | | | | | | [place] [address] | | | | | | [phone] | | | | | | | | +--------+---------+ + + + documented as of this encounter Visit Diagnoses Not on filedocumented in this encounter"
--- OUTSIDE RECORDS SUMMARY | ~2019-03-08 | XMS | Encounter Summary ---
Demographics + + + | Address | [address] | | | [place] [address] | + + + | Home Phone [...] Author | [facility] | | | and Josephana | + + + | Organization | [facility] | | [...] Providers + +------+ + | Care Machine Joint Cutter Name | Role | Phone | + +------+ + PCP | Unavailable | + +------+ + Encounter Details +--------+ + + + + | Date | Type | Department | Care Team | Description | +--------+ + + + + | 02/20/ | Abstract | [facility] | lBake Chavarria | | | 2013 | | SURGERY [address] Fung MD, FACS [address] | | | | | [address] [place] | [address] [facility] | | | | | [address] | [place] [address] | | | | | [phone] | [phone] | | | | | | | [...] [place] | | | | | | [place] [address] | | | | | | [phone] | | | | | | | [...]
--- OUTSIDE RECORDS SUMMARY | ~2019-03-08 | XMS | Encounter Summary ---
Demographics + + + | Address | [address] | | | [place] [address] | + + + | Home Phone [...] + | Author | [facility] | | | and Josephana | + + + | Organization | [facility] | [...] Team Providers + +------+ + | Care Political Analyst Name | Role | Phone | + +------+ + | Tien Nicholson MD | PCP | | + +------+ + Encounter Details +--------+ + + + + | Date | Type | Department | Care Team | Description | +--------+ + + + + | 10/17/ | Hospital | [facility] | Nikita, | SOB (shortness of | | 2019 - | Encounter | [facility] | MD Na[address] | breath); Pleural | | | | CARE FLOOR [address] | effusion on right; | | 10/20/ | | [address] | [place] [address] | ESRD needing | | 2019 | | [place], [place] | [phone] | dialysis ([facility]); End | | | | [address] | | stage renal disease | | | | [phone] | | (HCC) | +--------+ + + [...] | | | | | renal disease) ([facility]) | protocol | | | | [...] + + +---------+ + + | B Xalxzyn-Z-Piedu | Take 1 tablet by | | [...] 10/19/182357 Date of Service: 10/19/182357 Status: Signed Motion Study Technician: Vira Ford RN (Registered Nurse) No acute [...] 10/19/181827 Date of Service: 10/19/181826 Status: Signed Motion Study Technician: Trent Jovel RN (Registered Nurse) Dialysis completed today 2.4L removed. Remains on fluid restriction. Medicated for pain x 2. End of shift review complete. Trent Jovel RN onver arturo Transaction, Provider Unknown - 10/19/2018 3:36 PM PDT Case Management by DORON Diallo at 10/19/18 1536 Author: DORON Diallo Service: (none) Author Type: Member Of Parliament Filed: 10/19/18 1537 Date of Service: 10/19/18 1536 Status: Signed Motion Study Technician: DORON Diallo (Member Of Parliament) Discharge planning: Return home when medically ready for discharge. Pt is receiving dialysi s on MWF. Pt is currently on 4L O2, pt may need a home O2 evaluation at discharge. Antonio Carrasco MD - 10/19/2018 12:14 PM PDTFormatting of this note might be different from the orig inal. Progress Notes by Antonio Pabon MD at 10/19/18 0024 Author: Antonio Pabon MD Service: Nephrology Author Type: Physician Filed: 10/25/18 3812 Date of Service: 10/19/18 1214 Status: Addendum Motion Study Technician: Antonio Pabon MD (Physician) Related Notes: Original Note by Antonio Pabon MD (Physician) filed at 10/25/18 2286 [facility] Service: NEPHROLOGY Progress Note Dara Wedlon 23 y.o. [id number] female TIEN NICHOLSON 23-year-old female with [...] AV FISTULA; Surgeon: Rik Simon MD; Location: [facility] OR; Service: Vascula r; Laterality: Left; cephalic AV FISTULA REPAIR Left 03/07/2014 Procedure: AV FISTULA - GRAFT REPAIR/REVISION; Surgeon: Rik Simon MD; Location: [facility] IN OR; Service: Vascular; Laterality: Left; DECLOT GRAFT Left 03/07/2014 Procedure: GRAFT - DECLOT; Surgeon: Rik Simon MD; Location: [facility] OR; Service: Vas cular; Laterality: Left; DIALYSIS FISTULA CREATION N/A 04/08/2014 Procedure: DIALYSIS CATHETER - INSERTION; Surgeon: Rik Simon MD; Location: [facility] OR ; Service: Vascular; Laterality: N/A; tunneled catheter LAPAROSCOPIC PERITONEAL DIALYSIS CATHETER INSERTION x2 LAPAROSCOPIC PERITONEAL DIALYSIS CATHETER INSERTION Right 07/2013 current dialysis access MWF dialysis RENAL BIOPSY Left 2003 SUPERFICIALIZATION OF AV FISTULA Left 06/24/2014 Procedure: AV FISTULA - SUPERFICIALIZATION; Surgeon: Rik Simon MD; Location: [facility] OR; Service: Vascular; Laterality: Left; [...] file Social History Narrative She lives in [facility]. She does not work. She [...] ral space is punctured with an 5 Spanish Plated centesis catheter. Fluid is aspirated without complication. [...] 1 VIEW (10/17/2018); CHEST TWO V IEWS 58431 (10/17/2018); FINDINGS: Compared to the prior examination [...] MR, severe TR.severe pulmonary hypertens ion Chest a-fhb-fpgkbohzjswx with pulmonary edema and large right pleural [...] earlier and charting completed later Dictation software, Mantex, used which may contain error for similar sounding words even af ter review. Personal communication requested for any clarification. inGerber pastrana MD - 10/19/2018 7:48 AM PDT Progress Notes by Gerber Pearson MD at 10/19/18 0748 Author: Gerber Pearson MD Service: Hospitalist Author Type: Physician Filed: 10/19/18 0753 Date of Service: 10/19/1848 Status: Signed Motion Study Technician: Gerber Pearson MD (Physician) [facility] Service: Hospitalist Progress Note Hospital Day: [...] with dyspnea Patient was recently discharged from [facility] on 08/23/2018. For full note, please see ketan agudelo summary from hospitalist. In summary, the patient was admitted for noncardiogenic pulmo nary edema after thoracentesis. At that point, prior to admission, [facility] in [place] on 08/21 where she underwent right th oracentesis with removal of 2.5 L of fluid. She was sent home after the procedure and subse quently developed dyspnea with x-ray concerning for pulmonary edema. During hospitalization nephrology was consulted, she underwent hemodialysis on 08/21 and 9. Patient improved cli nically and radiologically and [...] 719) SpO2: [91 %-100 %] 91 % (10/19 07) Height: [170.2 cm (5' 7")] 170.2 cm [...] BUN 90 on admission -History of a Forsyth Schnlein purpura -Last hemodialysis approximately 2 weeks [...] 10/19/18733 Date of Service: 10/19/18733 Status: Signed Motion Study Technician: Vira Ford RN (Registered Nurse) No acute changes from shift assessment. VSS. Pt medicated for pain as requested and availab le. End of shift review and 24 hour chart check complete. onver arturo Transaction, Provider Unknown - 10/18/2018 5:01 PM PDT Case Management by DORON Diallo at 10/18/181700 Author: DORON Diallo Service: (none) Author Type: Member Of Parliament Filed: 10/18/181706 Date of Service: 10/18/181700 Status: Signed Motion Study Technician: DORON Diallo (Member Of Parliament) Discharge planning: Return home when medically ready for discharge. Gerber Fernandez MD - 10/18/2018 7:46 AM PDT Progress Notes by Gerber Pearson MD at 10/18/18745 Author: Gerber Pearson MD Service: Hospitalist Author Type: Physician Filed: 10/18/18 0751 Date of Service: 10/18/18745 Status: Signed Motion Study Technician: Gerber Pearson MD (Physician) [facility] Service: Hospitalist Progress Note Hospital Day: [...] with dyspnea Patient was recently discharged from [facility] on 08/23/2018. For full note, please see ketan agudelo summary from hospitalist. In summary, the patient was admitted for noncardiogenic pulmo nary edema after thoracentesis. At that point, prior to admission, [facility] in [place] on 08/21 where she underwent right th [...] BUN 90 on admission -History of a Forsyth Schnlein purpura -Last hemodialysis approximately 2 weeks [...] Status: Full Code Gerber Pearson MD 10/18/2018 Antonio Carrasco MD - 10/18/2018 7:45 AM PDT Progress Notes by Antonio Pabon MD at 10/18/18744 Author: Antonio Pabon MD Service: Nephrology Author Type: Physician Filed: 10/25/182002 Date of Service: 10/18/18744 Status: Signed Motion Study Technician: Antonio Pabon MD (Physician) [facility] Service: NEPHROLOGY Progress Note Dara Weldon 23 y.o. [id number]/[id number] female [facility] Day: LOS: 1 day 23-year-old [...] AV FISTULA; Surgeon: Rik Simon MD; Location: [facility] OR; Service: Vascula r; Laterality: Left; cephalic AV FISTULA REPAIR Left 03/07/2014 Procedure: AV FISTULA - GRAFT REPAIR/REVISION; Surgeon: Rik Simon MD; Location: [facility] IN OR; Service: Vascular; Laterality: Left; DECLOT GRAFT Left 03/07/2014 Procedure: GRAFT - DECLOT; Surgeon: Rik Simon MD; Location: [facility] OR; Service: Vas cular; Laterality: Left; DIALYSIS FISTULA CREATION N/A 04/08/2014 Procedure: DIALYSIS CATHETER - INSERTION; Surgeon: Rik Simon MD; Location: [facility] ; Service: Vascular; Laterality: N/A; tunneled catheter LAPAROSCOPIC PERITONEAL DIALYSIS CATHETER INSERTION x2 LAPAROSCOPIC PERITONEAL DIALYSIS CATHETER INSERTION Right 07/2013 current dialysis access MWF dialysis RENAL BIOPSY Left 2003 SUPERFICIALIZATION OF AV FISTULA Left 06/24/2014 Procedure: AV FISTULA - SUPERFICIALIZATION; Surgeon: Rik Simon MD; Location: [facility]; Service: Vascular; Laterality: Left; [...] file Social History Narrative She lives in [facility]. She does not work. She [...] QTC Calculation (Bezet) 469 ms Calculated P Summers 46 degrees Calculated R Summers 127 degrees Calculated T Summers 94 degrees Diagnosis Normal sinus rhythm Right [...] MR, severe TR.severe pulmonary hypertens ion Chest o-jvj-dexuwdosdrif with pulmonary edema and large right pleural [...] earlier and charting completed later Dictation software, Mantex, used which may contain error for similar [...] 10/18/1853 Date of Service: 10/18/18650 Status: Signed Motion Study Technician: Ronnie Vargas RN (Registered Nurse) Pt alert and oriented X 4. PRN pain med given for back pain. No other acute changes durin g shift. Chart check complete onver arturo Transaction, Provider Unknown - 10/17/2018 9:48 AM PDT Case Management by DORON Diallo at 10/17/18 0948 Author: DORON Diallo Service: (none) Author Type: Member Of Parliament Filed: 10/17/1854 Date of Service: 10/17/18947 Status: Signed Motion Study Technician: DORON Diallo (Member Of Parliament) 10/17/18 09 Discharge Planning Evaluation Admitting Diagnosis (SOB) Readmission Other (comment) (Last admit 08/20/18) Living Arrangements Alone Support Systems Family members;Friends/neighbors Type of Residence Private residence House type Apartment Independent with ADL's Yes Independent with Mobility Yes Home Care Services No Caregiver after Discharge No Mental Status Oriented Prior functional status (Independent) Power of Otr Driver No Resources Financial concerns No Transportation issues No Patient/Family concerns No Prescription Plan Yes Name of Pharmacy ([facility] in [place]) Previous home health equipment No Anticipated Disposition Facility Type Home DORON CM met with pt and discussed discharge planning. Pt is a 23 y.o., female admitted for s hortness of breath. Pt resides alone in an apartment at [address], [address], [place] [address]. Pt reported that she has neighbor and friend support. Pt's mother, Thania cheung can be reached at and sister, Saundra can be reached at . Pt reported being independent with ADL's,, IADL's and mobility prior to this admission. Pt denied previous outpatient OT/PT services, home care services and home O2 prior to this admission. Pt reported that she received dialysis from [facility] [place] on MWF prior to this admission . [...] Anticipated DCP: Return home DORON Diallo, GALE Rubi Meraz Provider Unknown - 10/17/2018 7:44 AM PDT Pharmacy Note by Camilla Moody RPH at 10/17/18743 Author: Camilla Moody RPH Service: Pharmacy Author Type: Pharmacist Filed: 10/17/18743 Date of Service: 10/17/18743 Status: Signed Motion Study Technician: Camilla Moody RPH (Pharmacist) Clinical Pharmacy Note: [...] nitor and adjust as clinically indicated. Camilla Moody PharmD 10/17/2018 7:42 AM Gerber Fernandez MD - 10/17/2018 7:17 AM PDT Progress Notes by Gerber Pearson MD at 10/17/18716 Author: Gerber Pearson MD Service: Hospitalist Author Type: Physician Filed: 10/17/18 0747 Date of Service: 10/17/18716 Status: Signed Motion Study Technician: Gerber Pearson MD (Physician) [facility] Service: Hospitalist Progress Note Hospital Day: [...] with dyspnea Patient was recently discharged from [facility] on 08/23/2018. For full note, please see discha rge summary from hospitalist. In summary, the patient was admitted for noncardiogenic pulmo nary edema after thoracentesis. At that point, prior to admission, she was [facility] in [place] on 08/21 where she underwent right th [...] the case over the phone with patient's alley worker Dr. Mahmood, recommends medi oly management and [...] creatinine 14, BUN 90 -History of a Forsyth Schnlein purpura -Last hemodialysis approximately 2 weeks [...] Pearson MD 10/17/2018 documented in this encounter Plan of Treatment [...] | | | | [place] [address] | | | | | | [phone] | | | | | | | [...] Center, | | | | | | [place] [address] | | | | + + + [...] CHEST 1 VIEW (10/17/2018); CHEST TWO VIEWS 88187 | | | (10/17/2018); FINDINGS: Compared to [...] VIEW | | (10/17/2018); CHEST TWO VIEWS 37547 (10/17/2018); | | FINDINGS: | | Compared [...] pleural space is punctured with an 5 Spanish Commutableesis catheter. | | | Fluid is aspirated [...] pleural space is punctured with an 5 Spanish Yueh | | Circle Cardiovascular Imagingesis catheter. Fluid is aspirated without complication. The [...] | RED CELL | 3.24 (L) | 3.7 0 - [...] Center, | | | | | | [place] [address] | | | | | |Testing performed at [facility], [address] [place] [address] | | | | | | | [...] | | | | | [place] [address] | | | | + + + [...] Center, | | | | | | [place] [address] | | | | + + + [...] at | | | | | | [facility];[address] [place] [address] | | | | | | [facility];[place] [address] | | | | + + + [...] EXTERNAL | | | | performed at [facility];[address] | | LAB | | | | [address];[place], [place] | | | | | | [address] | | | | + + + [...] at | | | | | | [facility];[address] [place] [address] | | | | | | [facility];[place] [address] | | | | + + + [...] EXTERNAL | | | | performed at [facility];[address] | | LAB | | | | [facility], [place] | | | | | | [address] | | | | + + + [...] | | | | | performed at [facility];[address] | | | | | | [address];[place], [place] | | | | | | [address] | | | | + + + [...] + + | Cedric, Sonido Conversion - 11/09/2018 9:32 AM PDT CHEST [...] at | | | | | | [facility];[address] [place] [address] | | | | | | Bl;[place] [address] | | | | + + + [...] at | | | | | | [facility];[address] [facility] | | | | | | [facility];[place] [address] | | | | + + + [...] | | LAB | | | | [facility];[address] [facility] | | | | | | [address]vd;[place] [address] | | | | + + + [...]
--- OUTSIDE RECORDS SUMMARY | ~2019-03-08 | XMS | Encounter Summary ---
Demographics + + + | Address | [address] | | | [place] [address] | + + + | Home Phone [...] | | | | | [place] [address] | | + + + + + | Thania Mallory | ECON | [address] | | | | | [place] [address] | | + + + + + | Deidra [place]don | ECON | [address] | | | | | [place] | | | | | [address] | | + + + + + Care Team Providers + +------+ + | Care Inserter Name | Role | Phone | [...] [facility] | | | | | [facility], | [place], [place] | | | | | [place] [address] | [address] | | | | | [phone] | | | +--------+ + + + [...] [facility] | | | | | | [address] | | | | | | [phone] | | | | | | | | +--------+ + + + + documented as of this encounter Visit Diagnoses Not on filedocumented in this encounter"
--- OUTSIDE RECORDS SUMMARY | ~2019-03-08 | XMS | Encounter Summary ---
Demographics + + + | Address | [address] | | | [place] [address] | + + + | Home Phone [...] Author | [facility] | | | and [place] | + + + | Organization | [facility] | [...] Providers + +------+ + | Care Deck Cadet Name | Role | Phone | + +------+ + | Tien Nicholson MD | PCP | | + +------+ + Encounter Details +--------+ + + + + | Date | Type | Department | Care Team | Description | +--------+ + + + + | 07/18/ | Hospital | [facility] | Mary Mckay, | Febrile illness; | | 2019 - | Encounter | [facility] | [address] | Recurrent pleural | | | | CARE FLOOR [address] | [place] [address] | effusion on right; | | 07/24/ | | [address] | [phone] | Hypoxia; History of | | 2019 | | [place], [place] | | end stage renal | | | | [address] | | disease; ESRD on | | | | [phone] | | hemodialysis ([facility]); | | | | | | Anemia in ESRD | | | | | | (end-stage renal | | | | | | disease) ([facility]); | | | | | | Moderate to severe | | | | | | pulmonary | | | | | | hypertension ([facility]); | | | | | | Chronic right-sided | | | | | | heart failure ([facility]); | | [...] 1306 Date of Service: 07/24/18905 Status: Signed Utilization Manager: Usha Martínez MD (Physician) [facility] Service: Hospitalist Discharge Summary Date of Admission: [...] noted involving the right lung. Signed by: Shua Lenz Amit Sign Date/Time: 07/20/2018 9:30 AM [...] renal disease on hemodialysis Monday and Monday (apartment community manager Dr. 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, hypertension, asthma, chronic combined heart failure, severe pulmonary hypertension, cor pulmonale, moderate mitral valve regurgitation, severe tricuspid regurgit ation and other chronic comorbidities who was discharged on 05/2018 from [facility] with bilateral pleural effusions and ascites status post thoracentesis 1.5 L removed transudative and 4 L ascitic fluid removed who presents to [facility] ER from [place] [facility] for sepsis likely seco ndary to [...] after discharge and to follow -up with apartment community manager and depositing machine operator within 1 to 2 weeks after discharge [...] Rik Simon MD; Location: [facility] MAIN OR; Service: Vascula r; Laterality: Left; cephalic AV FISTULA REPAIR Left 03/07/2014 Procedure: AV FISTULA - GRAFT REPAIR/REVISION; Surgeon: Rik Simon MD; Location: [facility] IN OR; Service: Vascular; Laterality: Left; DECLOT GRAFT Left 03/07/2014 Procedure: GRAFT - DECLOT; Surgeon: Rik Simon MD; Location: [facility] MAIN OR; Service: Vas cular; Laterality: Left; DIALYSIS FISTULA CREATION N/A 04/08/2014 Procedure: DIALYSIS CATHETER - INSERTION; Surgeon: Rik Simon MD; Location: [facility] OR ; Service: Vascular; Laterality: N/A; tunneled catheter LAPAROSCOPIC PERITONEAL DIALYSIS CATHETER INSERTION x2 LAPAROSCOPIC PERITONEAL DIALYSIS CATHETER INSERTION Right 07/2013 current dialysis access MWF dialysis RENAL BIOPSY RENAL BIOPSY Left 2003 SUPERFICIALIZATION OF AV FISTULA Left 06/24/2014 Procedure: AV FISTULA - SUPERFICIALIZATION; Surgeon: Rik Simon MD; Location: [facility] OR; Service: Vascular; Laterality: Left; [...] PH Unknown 7.48 Fluid culture w/gram stain [[id number]] Collected: 07/21/18 1400 Order Status: Completed Lab Status: Preliminary result Updated: 07/24/18 0948 Specimen: Body Fluid from Thoracic Fluid Specimen Description THORACIC FLUID GRAM STAIN NO CELLS OR ORGANISMS SEEN CULTURE NO GROWTH 3 DAYS Fluid total protein (Body fluid) [[id number]] Collected: 07/21/18 1400 Order Status: Completed Lab Status: Final result Updated: 07/21/18 165 Specimen: Body Fluid from Thoracentesis Fluid FLUID TOTAL PROTEIN 4.2 g/dL Comment: This is not a honing machine try out setter validated sample type for this method. No reference ra nges have been established. Testing performed at [facility], [address] [place] [address] FLUID TP SOURCE THORACENTESIS Comment: Testing performed at [facility];[address] [place] [address] Lactate dehydrogenase, body fluid [[id number]] Collected: 07/21/18 1400 Order Status: Completed Lab Status: Final result Updated: 07/21/181649 Specimen: Body Fluid from Thoracentesis Fluid FLUID LDH 148 U/L Comment: This is not a honing machine try out setter validated sample type for this method. No reference ra nges have been established. Testing performed at [facility], [address] [place] [address] pH, body fluid [[id number]] Collected: 07/21/18 1400 Order Status: Completed Lab Status: Final result Updated: 07/21/18 1426 Specimen: Body Fluid from Thoracentesis Fluid FLUID PH 7.48 Comment: Testing performed at [facility];[address] [place] [address] Blood Culture Set 1 [[id number]] Collected: 07/19/18 0853 Order Status: Completed Lab Status: Preliminary result Updated: 07/21/18 06 Specimen: Blood from Blood, peripheral draw Specimen Description BLOOD, PERIPHERAL DRAW SPECIAL REQUESTS RIGHT AC CULTURE NO GROWTH 2 DAYS Blood Culture Set 2 [[id number]] Collected: 07/19/18 0925 Order Status: Completed Lab Status: Preliminary result Updated: 07/21/18 06 Specimen: Blood from Blood, peripheral draw Specimen Description BLOOD, PERIPHERAL DRAW SPECIAL REQUESTS RT FOREARM CULTURE NO GROWTH 2 DAYS Respiratory Filmarray [[id number]] (Abnormal) Collected: 07/19/18 0132 Order Status: Completed [...] by Molecular Methodology Comment: Testing performed at [facility], [address] [place] [address] MRSA by PCR [[id number]] Collected: 07/19/18 013 Order Status: Completed Lab Status: Final result Updated: 07/19/18303 Specimen: Nasal from Nares(Nose) SOURCE NARES(NOSE) MRSA PCR NEGATIVE Comment: Testing performed at [facility];[address] [place] [address];[place] [address] Disposition: Home Condition: Stable Code Status: Full [...] Follow up: Tien Nicholson MD [address] [facility], [address] [place] [address] Schedule an appointment as soon as possible for a visit in 1 week [facility] [address] [place] [address] Schedule an appointment as soon as possible for a visit in 1 week [facility] [address] [place] [address] Schedule an appointment as soon as [...] Date of Service: 07/24/18 1028 Status: Signed Utilization Manager: Iram Saleh RN (Registered Nurse) Disposition: [...] Date of Service: 07/24/18 1016 Status: Signed Utilization Manager: Christina Aguilar RN (Registered Nurse) Discharge teaching given, prescriptions faxed by family preservation caseworker to pt's pharmacy. Pt denies c oncern. Ride home at bedside. Pt getting dressed now for discharge. onver arturo Transaction, Provider Unknown - 07/24/2018 10:12 AM PDT Case Management by Iram Saleh RN at 07/24/18 1012 Author: Iram Saleh RN Service: (none) Author Type: Registered Nurse Filed: 07/24/18 1014 Date of Service: 07/24/18 1012 Status: Signed Utilization Manager: Iram Saleh RN (Registered Nurse) Discharge planning: Met with pt, she indicated her friend is on her way to transport her from the hospital, no other needs identified. ADÁN signed and copy placed in chart. Pt's discharge prescriptions was faxed to [facility], Billie Braxton MD - 07/24/2018 9:09 AM PDTFormatting of this note might be different from th e original. Progress Notes by Billie Gupta MD at 07/24/18 09 Author: Billie Gupta MD Service: Nephrology Author Type: Physician Filed: 07/24/18910 Date of Service: 07/24/18908 Status: Signed Utilization Manager: Billie Gupta MD (Physician) [facility] Followup -Nephrology I saw Ms. Dara Louise today for follow-up. she is interviewed, examined and meds/ labs Have been reviewed. 23-year-old female with an extensive past medical history of IgA vasculitis, end-stage abdiel l disease on hemodialysis Monday and Monday (apartment community manager Dr. Anguiano) , chronic c ombined heart failure, severe pulmonary hypertension, cor pulmonale, moderate mitral valve r egurgitation, severe tricuspid regurgitation and other chronic comorbidities who was dischar ged on 05/2018 from [facility] with bilateral pleural effusions and ascites status post thoracente sis 1.5 L removed transudative and 4 L ascitic fluid removed who presents to [facility] ER [facility] [place] [facility] [...] 07/24/18524 Date of Service: 07/24/18454 Status: Signed Utilization Manager: Minda Hudson RN (Registered Nurse) Pt [...] (none) Author Type: Registered Nurse Filed: 07/23/18 1106 Date of Service: 07/23/181825 Status: Signed Utilization Manager: Saundra Hartley RN (Registered Nurse) Pt [...] 07/23/181336 Date of Service: 07/23/181335 Status: Signed Utilization Manager: Sotero Reinoso MD (Physician) [facility] Service: Hospitalist Progress Note Hospital Day: LOS: 4 days Briefly, 23-year-old female with an extensive past medical history of IgA vasculitis, end-s tage renal disease on hemodialysis Monday and Monday (apartment community manager Dr. Anguiano) co mplicated with thrombosis of vascular dialysis stent on Plavix, hypertension, asthma, chroni c combined heart failure, severe pulmonary hypertension, cor pulmonale, moderate mitral valv e regurgitation, severe tricuspid regurgitation and other chronic comorbidities who was disc harged on 05/2018 from [facility] with bilateral pleural effusions and ascites status post thorace ntesis 1.5 L removed transudative and 4 L ascitic fluid removed who presents to [facility] E R from [place] [facility] for sepsis likely secondary to pulmonary [...] weeks after discharge and to follow-up with apartment community manager and depositing machine operator within 1 to 2 weeks after discharge [...] range Anemia in ESRD (end-stage renal disease) ([facility]) ASSESSMENT & PLAN 1. Sepsis: -Hemodynamically stable. -Noted at [place]' the patient was febrile with a T-max [...] The patient does follow up with outpatient depositing machine operator (Dr. Mahmood) patient is tentative ly and [...] 07/23/18926 Date of Service: 07/23/18917 Status: Signed Utilization Manager: Billie Gupta MD (Physician) [facility] Followup -Nephrology I saw Ms. Dara Louise today for follow-up. she is interviewed, examined and meds/ labs Have been reviewed. 23-year-old female with an extensive past medical history of IgA vasculitis, end-stage abdiel l disease on hemodialysis Monday and Monday (apartment community manager Dr. Anguiano) , chronic c ombined heart failure, severe pulmonary hypertension, cor pulmonale, moderate mitral valve r egurgitation, severe tricuspid regurgitation and other chronic comorbidities who was dischar ged on 05/2018 from [facility] with bilateral pleural effusions and ascites status post thoracente sis 1.5 L removed transudative and 4 L ascitic fluid removed who presents to [facility] ER f [facility] for sepsis likely secondary to pneumonia. [...] 07/23/18622 Date of Service: 07/23/18622 Status: Signed Utilization Manager: Shannon Martell RN (Registered Nurse) No [...] 07/22/181726 Date of Service: 07/22/181722 Status: Signed Utilization Manager: Sotero Reinoso MD (Physician) [facility] Service: Hospitalist Progress Note Hospital Day: LOS: 3 days 23-year-old female with an extensive past medical history of IgA vasculitis, end-stage abdiel l disease on hemodialysis Monday and Monday (apartment community manager Dr. Anguiano) complicated with thrombosis of vascular dialysis stent on Plavix, hypertension, asthma, chronic combine d heart failure, severe pulmonary hypertension, cor pulmonale, moderate mitral valve regurgi tation, severe tricuspid regurgitation and other chronic comorbidities who was discharged on 05/2018 from [facility] with bilateral pleural effusions and ascites status post thoracentesis 1.5 L removed transudative and 4 L ascitic fluid removed who presents to [facility] ER from [facility] ER for sepsis likely secondary [...] range Anemia in ESRD (end-stage renal disease) ([facility]) ASSESSMENT & PLAN 1. Sepsis: -Hemodynamically stable. -Noted at [place]' the patient was febrile with a T-max [...] The patient does follow up with outpatient depositing machine operator (Dr. Mahmood) patient is tentative ly and [...] Date of Service: 07/22/18 1609 Status: Addendum Utilization Manager: Rafaela Patel RN (Registered Nurse) Related [...] Date of Service: 07/22/18 09 Status: Addendum Utilization Manager: Billie Gupta MD (Physician) Related Notes: Original Note by KRISHNA Sahu (Advanced Registered Nurse Practitio [facility]) filed at 07/22/18 1057 [facility] Followup -Nephrology I saw Ms. Dara Louise today for follow-up. she is interviewed, examined and meds/ labs Have been reviewed. 23-year-old female with an extensive past medical history of IgA vasculitis, end-stage abdiel l disease on hemodialysis Monday and Monday (apartment community manager Dr. Anguiano) complicated with thrombosis of vascular dialysis stent on Plavix, hypertension, asthma, chronic combine d heart failure, severe pulmonary hypertension, cor pulmonale, moderate mitral valve regurgi tation, severe tricuspid regurgitation and other chronic comorbidities who was discharged on 05/2018 from [facility] with bilateral pleural effusions and ascites status post thoracentesis 1.5 L removed transudative and 4 L ascitic fluid removed who presents to [facility] ER from [facility] ER for sepsis likely secondary [...] 0656 Date of Service: 07/22/18653 Status: Signed Utilization Manager: Priti Priest RN (Registered Nurse) SBP 80-100's, Pt reports slight lightheadedness with pressures in 80's. Afebrile. HR SR 80' s. No other changes over noc. [facility] Chart chart complete onver arturo Transaction, Provider Unknown - 07/21/2018 7:42 PM PDT Nurse Progress Note by Francesca Bustos RN at 07/21/181941 Author: Francesca Bustos RN Service: (none) Author Type: Registered Nurse Filed: 07/21/181942 Date of Service: 07/21/181941 Status: Signed Utilization Manager: Francesca Bustos RN (Registered Nurse) No [...] Date of Service: 07/21/18 1233 Status: Signed Utilization Manager: Sotero Reinoso MD (Physician) [facility] Service: Hospitalist Progress Note Hospital Day: LOS: 2 days 23-year-old female with an extensive past medical history of IgA vasculitis, end-stage abdiel l disease on hemodialysis Monday and Monday (apartment community manager Dr. Anguiano) complicated with thrombosis of vascular dialysis stent on Plavix, hypertension, asthma, chronic combine d heart failure, severe pulmonary hypertension, cor pulmonale, moderate mitral valve regurgi tation, severe tricuspid regurgitation and other chronic comorbidities who was discharged on 05/2018 from [facility] with bilateral pleural effusions and ascites status post thoracentesis 1.5 L removed transudative and 4 L ascitic fluid removed who presents to [facility] ER from [facility] ER for sepsis likely secondary [...] range Anemia in ESRD (end-stage renal disease) ([facility]) ASSESSMENT & PLAN 1. Sepsis: -Hemodynamically stable. -Noted at [facility] the patient was febrile with a T-max [...] The patient does follow up with outpatient depositing machine operator (Dr. Mahmood) patient is tentative ly and [...] Date of Service: 07/21/18 1024 Status: Signed Utilization Manager: Billie Gupta MD (Physician) [facility] Followup -Nephrology I saw . Dara Louise [...] 07/21/18614 Date of Service: 07/21/18614 Status: Signed Utilization Manager: Gris Hawk RN (Registered Nurse) Medicated for pain x1, nausea x1. No other acute changes noted. End of shift review complet e. onver arturo Transaction, Provider Unknown - 07/20/2018 7:44 PM PDT Nurse Progress Note by Francesca Bustos RN at 07/20/181943 Author: Francesca Bustos RN Service: (none) Author Type: Registered Nurse Filed: 07/20/181945 Date of Service: 07/20/181943 Status: Signed Utilization Manager: Francesca Bustos RN (Registered Nurse) No [...] 07/20/181624 Date of Service: 07/20/181624 Status: Signed Utilization Manager: Prashanth Estevez RN (Registered Nurse) Infection [...] completed Mycoplasma pneumoniae Droplet (DI) Prashanth Estevez [facility] blemo Sotero parker MD - 07/20/2018 4:15 PM PDT Progress Notes by Sotero Reinoso MD at 07/20/181614 Author: Sotero Reinoso MD Service: Hospitalist Author Type: Physician Filed: 07/20/181625 Date of Service: 07/20/181614 Status: Signed Utilization Manager: Sotero Reinoso MD (Physician) [facility] Service: Hospitalist Progress Note Hospital Day: LOS: 1 day 23-year-old female with an extensive past medical history of IgA vasculitis, end-stage abdiel l disease on hemodialysis Monday and Monday (apartment community manager Dr. Anguiano) complicated with thrombosis of vascular dialysis stent on Plavix, hypertension, asthma, chronic combine d heart failure, severe pulmonary hypertension, cor pulmonale, moderate mitral valve regurgi tation, severe tricuspid regurgitation and other chronic comorbidities who was discharged on 05/2018 from [facility] with bilateral pleural effusions and ascites status post thoracentesis 1.5 L removed transudative and 4 L ascitic fluid removed who presents to [facility] ER from [place] [facility] [...] range Anemia in ESRD (end-stage renal disease) ([facility]) ASSESSMENT & PLAN 1. Sepsis: -Hemodynamically stable. -Noted at [facility] the patient was febrile with a T-max [...] The patient does follow up with outpatient depositing machine operator (Dr. Mahmood) patient is tentative ly and [...] Date of Service: 07/20/18 1507 Status: Signed Utilization Manager: Stephanie Hirsch RN (Registered Nurse) 07/20/18 [...] Oriented Prior functional status independent Power of Heat And Frost Insulator Helper No Anticipated Discharge Plan Post Acute Care Needs None at this time Plan communicated to patient/family Yes Resources Financial concerns No Transportation issues No Patient/Family concerns No Prescription Plan Yes Name of Pharmacy [facility] Previous home health equipment [...] Date of Service: 07/20/18 0850 Status: Signed Utilization Manager: KRISHNA [place] (Advanced Registered Nurse Practitioner) [facility] Service: Radiology Progress Note Patient evaluated for [...] 07/20/18655 Date of Service: 07/20/18654 Status: Signed Utilization Manager: Nereida Edwards RN (Registered Nurse) VS [...] 07/19/181925 Date of Service: 07/19/181925 Status: Signed Utilization Manager: Francesca Bustos RN (Registered Nurse) No [...] Service: Nephrology Author Type: Physician Filed: 07/19/18 9583 Date of Service: 07/19/181349 Status: Signed Utilization Manager: Antonio Pabon MD (Physician) [facility] Service: NEPHROLOGY Dialysis Note Dara Louise 23 y.o. [id number] female [facility] Day: LOS: 0 days 23-year-old [...] AV FISTULA; Surgeon: Rik Simon MD; Location: [facility] OR; Service: Vascula r; Laterality: Left; cephalic AV FISTULA REPAIR Left 03/07/2014 Procedure: AV FISTULA - GRAFT REPAIR/REVISION; Surgeon: Rik Simon MD; Location: [facility] IN OR; Service: Vascular; Laterality: Left; DECLOT GRAFT Left 03/07/2014 Procedure: GRAFT - DECLOT; Surgeon: iRk Simon MD; Location: [facility] MAIN OR; Service: Vas cular; Laterality: Left; DIALYSIS FISTULA CREATION N/A 04/08/2014 Procedure: DIALYSIS CATHETER - INSERTION; Surgeon: Rik Simon MD; Location: [facility] MAIN OR ; Service: Vascular; Laterality: N/A; tunneled catheter LAPAROSCOPIC PERITONEAL DIALYSIS CATHETER INSERTION x2 LAPAROSCOPIC PERITONEAL DIALYSIS CATHETER INSERTION Right 07/2013 current dialysis access MWF dialysis RENAL BIOPSY RENAL BIOPSY Left 2003 SUPERFICIALIZATION OF AV FISTULA Left 06/24/2014 Procedure: AV FISTULA - SUPERFICIALIZATION; Surgeon: Rik Simon MD; Location: [facility] MAIN OR; Service: Vascular; [...] file Social History Narrative Lives in [facility], 2 wks ago fell at home [...] earlier and charting completed later Dictation software, [employer], used which may contain error for similar [...] Date of Service: 07/19/18 1020 Status: Signed Utilization Manager: Francesca Bustos RN (Registered Nurse) No [...] Date of Service: 07/19/18 0801 Status: Addendum Utilization Manager: Sotero Reinoso MD (Physician) Related Notes: Original Note by Sotero Reinoso MD (Physician) filed at 07/19/18 4810 [facility] Service: Hospitalist Progress Note Hospital Day: LOS: 0 days 23-year-old female with an extensive past medical history of IgA vasculitis, end-stage abdiel l disease on hemodialysis Monday and Monday (apartment community manager Dr. Anguiano) complicated with thrombosis of vascular dialysis stent on Plavix, hypertension, asthma, chronic combine d heart failure, severe pulmonary hypertension, cor pulmonale, moderate mitral valve regurgi tation, severe tricuspid regurgitation and other chronic comorbidities who was discharged on 05/2018 from [facility] with bilateral pleural effusions and ascites status post thoracentesis 1.5 L removed transudative and 4 L ascitic fluid removed who presents to [facility] ER from [facility] ER for sepsis likely secondary [...] -Hemodynamically stable except for tachycardia. -Noted at [place]' the patient was febrile with a T-max [...] The patient does follow up with outpatient depositing machine operator (Dr. Mahmood) patient is tentative ly and [...] 07/19/18129 Date of Service: 07/19/18129 Status: Signed Utilization Manager: Jae Gutierres RPH (Pharmacist) Renal Dosing [...] [address] | | | | | | [place] [address] | | | | | | [phone] | | | | | | | [...] EXTERNAL | | | | performed at [facility];[address] | | LAB | | | | [address];[place] | | | | | | [address] | | | | + + + [...] | | | | | performed at [facility];[address] | | | | | | [facility];[place], [place] | | | | | | [address] | | | | + + + [...] | | | | | performed at [facility];[address] | | | | | | [address] [facility];[place], [place] | | | | | | [address] | | | | + + + [...] EXTERNAL | | | | performed at [facility], [address] | | LAB | | | | [facility], | | | | | | [place] [address] | | | | + + + [...] | | | | performed at [facility], [address] | | | | | | [facility], | | | | | | [place] [address] | | | | + + + [...] | EXTERNAL LAB | | not a honing machine try out setter validated sample type for this method. No reference | | | ranges have been established. Testing performed at [facility], [address] | | | [place] [address] FLUID TP SOURCE | | | THORACENTESIS Testing performed at [facility];[address] | | [address];[place] [address] | | + + + + +---------+ [...] EXTERNAL LAB | | is not a honing machine try out setter validated sample type for this method. No | | | reference ranges have been established. Testing performed at [facility], | | | [address] [place] [place] [address] | | + + + + +---------+ [...] EXTERNAL LAB | | Testing performed at [facility];[address] [place] [address];[place] [address] | | + + + + +---------+ [...] EXTERNAL | | | | performed at [facility];[address] | | LAB | | | | Nica Oropeza;[place] | | | | | | [address] | | | | + + + [...] EXTERNAL | | | | performed at [facility];[address] | | LAB | | | | [address];[place], [place] | | | | | | [address] | | | | + + + [...] with arms on the | | | vnpg-trf-khv table. Ultrasound was utilized to tk an [...] | | | possibility of "sound alike" wig maker errors, addition and/or | | | deletions [...] at the bedside with arms on the xnao-elp-qys | | table. Ultrasound was utilized to [...] recognition system. The possibility of "sound alike" wig maker errors, | | addition and/or deletions may [...] system. The possibility of "sound a like" wig maker errors, addition and/or deletions may occur. If [...] | | | | | at [facility], [address] | | | | | | [address], | | | | | | [place] [address] | | | | | |Testing performed at [facility], [address], [place] [address] | | | | | | | [...] | | | | performed at [facility], [address] | | | | | | Opal [place], | | | | | | [place] [address] | | | | + + + [...] EXTERNAL | | | | performed at [facility];888 | mmol/L | LAB | | | | [address]peza;[place], [place] | | | | | | [address] | | | | + + + [...] | | | Patient | performed at [facility];[address] | | LAB | | | | [address];[place], [place] | | | | | | [address] | | | | + + + [...] | | | | | performed at [facility];[address] | | | | | | [address];[place], [place] | | | | | | [address] | | | | + + + [...] | | | Estimate | performed at [facility] | | LAB | | | | Nica [address];[place], [place] | | | | | | [address] | | | | + + + [...] | | | | | performed at [facility] | | | | | | [facility];[place], [place] | | | | | | [address] | | | | + + + [...] at | | | | | | [facility];[address] [place] [address] | | | | | | [facility];[place] [address] | | | | + + + [...] | | | | | performed at [facility];[address] | | | | | | [facility];[place], [place] | | | | | | [address]GCIHGCLGL ON 07/19 | | | | | [...] at | | | | | | [facility];[address] [place] [address] | | | | | | Blvd;[place] [address] | | | | + + + [...] | | | | | at [facility], [address] | | | | | | [facility], | | | | | | [place] [address] | | | | | |Testing performed at [facility], [address] [facility], [place] [address] | | | | | | | [...] EXTERNAL | | | | performed at [facility], [address] | | LAB | | | | Opal [facility], | | | | | | [place] [address] | | | | + + + [...] EXTERNAL | | | | performed at [facility], [address] | | LAB | | | | Op[place], | | | | | | [place] [address] | | | | + + + [...] | | | | performed at [facility], [address] | | | | | | [facility], | | | | | | [place] [address] | | | | + + + [...] NEGATIVE Testing | | | performed at [facility];[address] [place] [address];[place] [address] | | + + + + +---------+ [...] at | | | [facility], [address] [place] [address] | | + + + + +---------+ [...] EXTERNAL | | | | performed at [facility];888 | mmol/L | LAB | | | | Nica Oropeza;[place] | | | | | | [address] | | | | + + + [...] | | | | | | at [facility];[address] [place] [address] | | | | | | [facility];[place] [address] | | | | + + + [...] at | | | | | | [facility];[address] [facility] | | | | | | Blvd;[place] [address] | | | | + + + [...] | | | QUALITATIVE | performed at [facility] | | LAB | | | | Nica Oropeza;[place] | | | | | | [address] | | | | + + + [...] ESRD (end-stage renal disease) ([facility]) Anemia in chronic kidney disease | + + | Moderate to severe pulmonary hypertension (HCC) Other chronic pulmonary heart | | diseases | + + | Chronic right-sided heart failure (HCC) Congestive heart failure, unspecified | + + | Pleural effusion on right Unspecified pleural effusion | + + documented in this encounter
--- OUTSIDE RECORDS SUMMARY | ~2019-03-08 | XMS | Encounter Summary ---
Demographics + + + | Address | [address] | | | [place] [address] | + + + | Home Phone [...] | | | | | [place] [address] | | + + + + + | Thania Mallory | ECON | [address] | | | | | [place] [address] | | + + + + + | Deidra Weldon | ECON | [address] | | | | | [place] | | | | | [address] | | + + + + + Care Team Providers + +------+ + | Care Regional Director Of Finance Name | Role | Phone | + [...] Nephrology at | RN [address] [facility] | | | | | [place] | [facility] | | | | | [facility] | [place], [place] | | | | | [address] [place] [address] Dr | [address] | | | | | Mailcode: DCH7 | | | | | | [place] | | | | | | [place], [place] | | | | | | [address] | | | | | | [phone] | | | +--------+ + + + [...] | | | | | | [place], [place] | | | | | | [address] | | | | | | [phone] | | | | | | | | +--------+ + + + + documented as of this encounter Visit Diagnoses + + | Diagnosis | + + | 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
--- OUTSIDE RECORDS SUMMARY | ~2019-03-08 | XMS | Encounter Summary ---
Demographics + + + | Address | [address] | | | [place] [address] | + + + | Home Phone [...] [facility] | | | and [place] | + + + | Organization | [facility] | | | and Josephana [...] Providers + +------+ + | Care Journeyman Pipe Welder Name | Role | Phone | [...] Fistula | | | | [address] | KEYSHA RAMOS | Creation | | | | [place] | [place] [address] | | | | | [address] | [phone] | | | | | [phone] | | | +--------+---------+ + + + [...] might be different f rom the original. [facility] POST-OP INSTRUCTIONS: Arterio-Venous Fistula [...] may interact with prescription medicines or other vosq-oaq-bmazqwy (OTC) drugs. The FDA recommends reading OTC medication labels careful ly to clearly understand the list of active ingredients, directions, and any precautions to help avoid taking too muchacetaminophen. If you have questions, ask your pharmacist or a [facility]son health care provider. Managing Nausea Some people have [...] or skin changes (rash, itching, or hives). 2172-0592 [employer]. [address] [place] [address], [place] [address]. All righ ts reserved. This information is [...] | | | | | [place] [address] | | | | | | [phone] | | | | | | | [...] mL/min/1.73m2 | [facility] | | | [facility] | (<18). | | MEDICAL | | [...] | [address] | [place] | [phone] | | [facility] | | [address] | | | - LABORATORY | | | | + + + + + | [address] | [address] | [place], [place] | | | [facility] | | [address] | | | - LABORATORY | | [...]
--- OUTSIDE RECORDS SUMMARY | ~2019-03-08 | XMS | Encounter Summary ---
Demographics + + + | Address | [address] | | | [place] [address] | + + + | Home Phone [...] | | | | | [place] [address] | | + + + + + | Thania Mallory | ECON | [address] | | | | | [place] [address] | | + + + + + | Deidra Weldon | ECON | [address] | | | | | [place] | | | | | [address] | | + + + + + Care Team Providers + +------+ + | Care Branch Customer Service Representative Name | Role | Phone | [...] | | | [address] | [facility] | | | | | [place], | [place], [place] | | | | | [place] [address] | [address] | | | | | [phone] | | | +--------+ + + + [...] eDnise | | | | | | [place], [place] | | | | | | [address] | | | | | | [phone] | | | | | | | | +--------+ + + + + documented as of this encounter Visit Diagnoses Not on filedocumented in this encounter"
--- OUTSIDE RECORDS SUMMARY | ~2019-03-08 | XMS | Encounter Summary ---
Demographics + + + | Address | [address] | | | [place] [address] | + + + | Home Phone [...] | | | | | [place] [address] | | + + + + + | Thania Mallory | ECON | [address] | | | | | [place] [address] | | + + + + + | Deidra Weldon | ECON | [address] | | | | | [place] | | | | | [address] | | + + + + + Care Team Providers + +------+ + | Care Stone Chimney Mason Name | Role | Phone | [...] | | | | Dea Jane | [place], [place] | | | | | [place], [place] | [address] | | | | | [address] | | | | | | [phone] | | | +--------+ + + + [...] Denise | | | | | | [place] | | | | | | [address] | | | | | | [phone] | | | | | | | | +--------+ + + + + documented as of this encounter Visit Diagnoses Not on filedocumented in this encounter"
--- OUTSIDE RECORDS SUMMARY | ~2019-03-08 | XMS | Encounter Summary ---
Demographics + + + | Address | [address] | | | [place] [address] | + + + | Home Phone [...] | Author | [facility] | | | and [place] | + + + | Organization | [facility] | [...] Providers + +------+ + | Care Medical Case Manager Name | Role | Phone | + +------+ + | Jonathan Alonso MD | PCP | | + +------+ + Encounter Details +--------+ + + + + | Date | Type | Department | Care Team | Description | +--------+ + + + + | 10/08/ | Orders Only | [facility] | Provider, | Systolic congestive | | 2019 | | SYSTEM GENERIC OP | MD [address] | heart failure (HCC) | | | | CONVERSION [address] | [place]. | | | | | [address] [place], [place] | [place] [address] | | | | | [address] | | | | | | [phone] | | | +--------+ + + + [...] | | | | [place] [address] | | | | | | [phone] | | | | | | | [...]
--- OUTSIDE RECORDS SUMMARY | ~2019-03-08 | XMS | Encounter Summary ---
Demographics + + + | Address | [address] | | | [place] [address] | + + + | Home Phone [...] | | | | | [place] [address] | | + + + + + | Thania Mallory | ECON | [address] | | | | | [place] [address] | | + + + + + | Deidra Weldon | ECON | [address] | | | | | [place] | | | | | [address] | | + + + + + Care Team Providers + +------+ + | Care Farm Machine Tender Name | Role | Phone [...] | | | | | [place], | | | | | | [place] [address] | | | +--------+ + + + [...] Denise | | | | | | [place], [place] | | | | | | [address] | | | | | | [phone] | | | | | | | [...] [facility] - | [address] | [place] [address] | | | IMMUNOGENETICS/TRANS | [address] | | | | [facility] | | | | + + + + + documented in this encounter Visit Diagnoses + + | Diagnosis | + + | End stage renal disease (HCC) End stage renal disease | + + documented in this encounter"
--- OUTSIDE RECORDS SUMMARY | ~2019-03-08 | XMS | Encounter Summary ---
Demographics + + + | Address | [address] | | | [place] [address] | + + + | Home Phone [...] | | | | | [place] [address] | | + + + + + | Thania Mallory | ECON | [address] | | | | | [place] [address] | | + + + + + | Deidra Weldon | ECON | [address] | | | | | [place] | | | | | [address] | | + + + + + Care Team Providers + +------+ + | Care Manager Statistical Programming Name | Role | Phone | [...] | | | [place], | [place] [address] | | | | | [place] [address] | [phone] | | | | | | | [...] Denise | | | | | | [place], [place] | | | | | | [address] | | | | | | [phone] | | | | | | | [...] [facility] - | [address] | [place] [address] | | | IMMUNOGENETICS/TRANS | [address] | | | | PLANT LAB[facility]ATORY | | | | + + + + + documented in this encounter Visit Diagnoses Not on filedocumented in this encounter"
--- OUTSIDE RECORDS SUMMARY | ~2019-03-08 | XMS | Encounter Summary ---
Demographics + + + | Address | [address] | | | [place] [address] | + + + | Home Phone [...] | Author | [facility] | | | and [place] | + + + | Organization | [facility] | [...] Team Providers + +------+ + | Care Vision Mixer Name | Role | Phone | + +------+ + PCP | Unavailable | + +------+ + Encounter Details +--------+ + + + + | Date | Type | Department | Care Team | Description | +--------+ + + + + | 05/29/ | Hospital | [facility] | Conversion | End stage renal | | 2014 | Encounter | CENTER IR INTRA OP | Transaction, | disease (HCC) | | | | [address] | Provider Unknown | | | | | [place], [place] | | | | | | [address] | (Fax) | | | | | [phone] | | | +--------+ + + + [...] 05/29/141653 Date of Service: 05/29/141648 Status: Signed Documentation Improvement Specialist: Mesha Clark RN (Registered Nurse) Discharge criteria [...] E | | | | | | [place] [address] | | | | | | [phone] | | | | | | | [...] right atrium without | | | incidence. [address], [address], [address], 05365-36 Electronically | | | signed by Darryn [...] portion of the right atrium without incidence. 52157, [address], 91226, 28083-14 | | | |2. Successful placement of a 14.5-Samoan dual-lumen 19-cm tunneled hemodialysis catheter w ith its tip in the upper portion of the right atrium without incidence. | | | |[address], [address], [address], 35930-88 | | | | | + + documented in this encounter Visit Diagnoses + + | Diagnosis | + + | End stage renal disease (HCC) End stage renal disease | + + documented in this encounter"
--- OUTSIDE RECORDS SUMMARY | ~2019-03-08 | XMS | Encounter Summary ---
Demographics + + + | Address | [address] | | | [place] [address] | + + + | Home Phone [...] | Author | [facility] | | | and [place] | + + + | Organization | [facility] | | [...] Providers + +------+ + | Care Science Interpreter Name | Role | Phone | [...] | stage renal | [address] | [address] [place] [address] | | | | | disease) | [address] | [place] | | | | | ([facility]) | [address] | [address] [place] | | | | | Anemia in | [place], [place] | [place] | | | | | ESRD | [address] | [address] Phone: | | | | | (end-stage | Phone: | [phone] | | | | | renal | [phone] | Fax: | | | | | disease) | Fax: | [phone] | | | | | ([facility]) | [phone] | | | | | | Procedures [...] | | [address] | [place] | (Primary Dx) | | | | [place], [place] | [place], [place] | | | | | [address] | [address] | | | | | [phone] | | | +--------+ + + + [...] uding the charge nurse, staff nurses, PCT's, sort line worker, dietitian myself she fails to heed [...] today in Plan: 1. Will continue to counseling program leader her about her high risk for cardiovascular morbidity and compl ications given her lack of full compliance with her treatment. 2. The renal BROWN STOCK WASHER has been attempting to reach her. However, [...] [place] | | | | | | [place] [address] | | | | | | [phone] | | | | | | | | +--------+---------+ + + + documented as of this encounter Visit Diagnoses + + | Diagnosis | + + | ESRD (end stage renal disease) (HCC) - Primary End stage renal disease | + + documented in this encounter"
--- OUTSIDE RECORDS SUMMARY | ~2019-03-08 | XMS | Encounter Summary ---
Demographics + + + | Address | [address] | | | [place] [address] | + + + | Home Phone [...] | | | | | [place] [address] | | + + + + + | Thania Mallory | ECON | [address] | | | | | [place] [address] | | + + + + + | Deidra Weldon | ECON | [address] | | | | | [place] | | | | | [address] | | + + + + + Care Team Providers + +------+ + | Care Driller Hand Name | Role | Phone | [...] | | | | | Hospital | [facility] | | | | | | [address] | [place] | | | | | | [address] | [place], [place] | | | | | | [place] | [address] | | | | | | [place] | Phone: | | | | | | [address] | [phone] | | | | | | Phone: | | | | | | | [phone] | | | | | | | Fax: | | | | | | | [phone] | | +--------+--------+ + + + + Encounter Details +--------+---------+ + + + | Date | Type | Department | Care Team | Description | +--------+---------+ + + + | 05/24/ | Office | Specialty Clinics | Sudhakar Joy | HSP | | 2017 | Visit | at [facility] [address] | MD Emanuel [address] | (David | | | | [address] Mailcode: | [address] | purpura) nephritis | | | | [facility] ernbadriana | [place], [place] | (Primary Dx); Anemia | | | | [place], [place] | [address] | of chronic kidney | | | | [address] | [phone] | failure, stage 5 | | | | [phone] | | (HCC) | +--------+---------+ + + [...] not be referred for transplant. Her adult heater helper forge could refer her to adult transplant when [...] [facility] Mail code [facility] [place], [place] [address] documented in this encounter Plan of Treatment +--------+ + + + + | Date | Type | Specialty | Care Team | Description | +--------+ + + + + | 05/04/ | [facility] | Adult Acute Care | El Starr MD | | | 2022 | Encounter | | [address] | | | | | | [place], [place] | | | | | | [address] | | | | | | [phone] | | | | | | | [...]
--- OUTSIDE RECORDS SUMMARY | ~2019-03-08 | XMS | Encounter Summary ---
Demographics + + + | Address | [address] | | | [place] [address] | + + + | Home Phone [...] | | | | | [place] [address] | | + + + + + | Thania Mallory | ECON | [address] | | | | | [place] [address] | | + + + + + | Deidra Weldon | ECON | [address] | | | | | [place] | | | | | [address] | | + + + + + Care Team Providers + +------+ + | Care Marketing Services Vice President Name | Role | [...] SSA) | | | | [address] [place], | [place], [place] | | | | | [place] [address] | [address] | | | | | [phone] | | | +--------+ + + + [...] Denise | | | | | | [place] | | | | | | [address] | | | | | | [phone] | | | | | | | | +--------+ + + + + documented as of this encounter Visit Diagnoses Not on filedocumented in this encounter"
--- OUTSIDE RECORDS SUMMARY | ~2019-03-08 | XMS | Encounter Summary ---
Demographics + + + | Address | [address] | | | [place] [address] | + + + | Home Phone [...] | Author | [facility] | | | and [place] | + + + | Organization | [facility] | | [...] Providers + +------+ + | Care Hand Molder Meat Name | Role | Phone | + [...] | | | DEPART[address] [place] | [place] [address] | | | | | [place], [place] | [phone] | | | | | [address] | | | | | | [phone] | | | +--------+ + + + [...] [address] | | | | | | [place] [address] | | | | | | [phone] | | | | | | | | +--------+---------+ + + + documented as of this encounter Visit Diagnoses Not on filedocumented in this encounter"
--- OUTSIDE RECORDS SUMMARY | ~2019-03-08 | XMS | Encounter Summary ---
[...] Author | [facility] | | | and [place]ana | + + + | Organization | [facility] | [...] NEPHROLOGY [address] | M, DO [address] | | | | | [address] | [place] | | | | | [place], [place] | [place], [place] | | | | | [address] | [address] | | | | | [phone] | | | +--------+ + + + [...] [facility], Sudhakar Joy MD at [facility], Doyle Diaz MD (fx: [phone]) on 08/31/15.Electronically signed by Marilyn Palumbo at [...] with an AVF venous stenosis, and had DEAF/HARD OF HEARING SPECIALIST with an Alysia Castillo last week. Apparently [...] uated for a possible renal allograft at [facility].honestly, given her recent suboptimal compliance with fluid gains, hyperphosphatemia, and missed treatments I think anitha quarles would be at high risk for graft loss from noncompliance? Will attempt to get in touch wit h Dr. Joy, Pediatric Nephrology. 4. Will recheck her in one week. I appreciate Dr. Diaz's help with her recent fistulogram . CC: [place] Fina Joy M.D., Pediatric Nephrology, [facility] Doyle Diaz M.D., IR, [facility] documented in thi s encounter Plan [...] | | | | [place] [address] | | | | | | [phone] | | | | | | | | +--------+---------+ + + + documented as of this encounter Visit Diagnoses + + | Diagnosis | + + | ESRD (end stage renal disease) (HCC) - Primary End stage renal disease | + + documented in this encounter"
--- OUTSIDE RECORDS SUMMARY | ~2019-03-08 | XMS | Encounter Summary ---
Demographics + + + | Address | [address] | | | [place] [address] | + + + | Home Phone [...] + | Author | [facility] | | | and [place] | + + + | Organization | [facility] | [...] Providers + +------+ + | Care Retail Assistant Name | Role | Phone | [...] | | | | [address] | [place], [place] | [place], [place] | | | | | stage renal | [address] | [address] Phone: | | | | | disease | Phone: | [phone] | | | | | ([facility]) | [phone] | Fax: | | | | | Infection | Fax: | [phone] | | | | | and | [phone] | | | | | | inflammatory [...] | | [address] | [place], [address] | (Primary Dx); | | | | [place], [place] | [place], [place] | Anemia in ESRD | | | | [address] | [address] | (end-stage renal | | | | [phone] | | disease) ([facility]) | +--------+ + + [...] recheck her Hb in one week. CC: Ernest Fina Joy MD, Renal Transplant Clinic, [facility] Blake Chavarria MD, FACS documented [...] [place] | | | | | | [place] [address] | | | | | | [phone] | | | | | | | [...]
--- OUTSIDE RECORDS SUMMARY | ~2019-03-08 | XMS | Encounter Summary ---
Demographics + + + | Address | [address] | | | [place] [address] | + + + | Home Phone [...] | Author | [facility] | | | and Josephana | + + + | Organization | [facility] [...] Team Providers + +------+ + | Care Package Designer Name | Role | Phone | + +------+ + PCP | Unavailable | + +------+ + Encounter Details +--------+ + + + + | Date | Type | Department | Care Team | Description | +--------+ + + + + | 10/28/ | Hospital | [facility] | Conversion | ESRD (end stage | | 2015 | Encounter | CENTER CV INTRA OP | Transaction, | renal disease) (HCC) | | | | [address] | Provider Unknown | | | | | [place], [place] | [phone] | | | | | [address] | | | | | | [phone] | Colten Hutchins MD | | | | | | [address] | | | | | | [place], [place] | | | | | | [address] | | | | | | | [...] [place] | | | | | | [place] [address] | | | | | | [phone] | | | | | | | [...] COMPARISON STUDIES: 08/21/2014 | | | PRIMARY FHA UNDERWRITER: Colten Hutchins MD, PhD, VI OPERATIONS: 1. [...] to the area of stenosis. A 4 Romanian | | | sheath was placed. Patient [...] | perianastomotic stenoses. COMPARISON STUDIES: 08/21/2014 PRIMARY FHA UNDERWRITER: Colten | | MD Liset, PhD, RPVI [...] to the area of stenosis. A 4 Romanian sheath was placed. Patient was | | [...] COMPARISON STUDIES: 08/21/2014 | | | PRIMARY FHA UNDERWRITER: Colten Hutchins MD, PhD, [facility] OPERATIONS: 1. | | | Left [...] to the area of stenosis. A 4 Romanian | | | sheath was placed. Patient [...] | perianastomotic stenoses. COMPARISON STUDIES: 08/21/2014 PRIMARY FHA UNDERWRITER: Colten | | MD Liset, PhD, RPVI [...] to the area of stenosis. A 4 Romanian sheath was placed. Patient was | | [...] | | | performed at [facility] | K/uL | LAB | | | | [address];[place], [place] | | | | | | [address] | | | | + + + + + + | RED CELL | 3.88Comment: Testing | 3.70 - 5.10 | EXTERNAL | | | COUNT | performed at [facility];[address] | M/uL | LAB | | | | [address];[place] | | | | | | [address] | | | | + + + + + + | Hgb | 14.1Comment: Testing | 11.3 - 15.5 | EXTERNAL | | | | performed at [facility];[address] | g/dL | LAB | | | | [address];[place] | | | | | | [address] | | | | + + + + + + | Hematocrit, | 41.4Comment: Testing | 34.0 - 46.0 % | EXTERNAL | | | POC | performed at [facility];[address] | | LAB | | | | [address];[place] | | | | | | [address] | | | | + + + + + + | MCV | 106.7 (H)Comment: | 80.0 - 100.0 fl | EXTERNAL | | | | Testing performed at | | LAB | | | | [facility];[address] | | | | [address];[place] [address] | | | | + + + + + + | MCH | 36.4 (H)Comment: Testing | 27.0 - 34.0 pg | EXTERNAL | | | | performed at [facility];[address] | | LAB | | | | [address];[place] | | | | | | [address] | | | | + + + + + + | MCHC | 34.1Comment: Testing | 32.0 - 35.5 | EXTERNAL | | | | performed at [facility];[address] | g/dL | LAB | | | | [address];[place] | | | | | | [address] | | | | + + + + + + | RDW-CV | 54.7 (H)Comment: Testing | 37 - 53 fl | EXTERNAL | | | | performed at [facility];[address] | | LAB | | | | [address];[place] | | | | | | [address] | | | | + + + + + + | Platelet | 168Comment: Testing | 150 - 400 K/uL | EXTERNAL | | | Count | performed at [facility];[address] | | LAB | | | Plasma | [address];[place] | | | | | | [address] | | | | + + + + + + | MPV | 9.1Comment: Testing | fl | EXTERNAL | | | | performed at [facility];[address] | | LAB | | | | [address];[place] | | | | | | [address] | | | | + + + [...] | | | performed at [facility] | | | | | | [address];[place] | | | | | | [address] | | | | + + + [...] | | | performed at [facility];[address] | mmol/L | LAB | | | | [address];[place] | | | | | | [address] | | | | + + + + + + | K | 3.9Comment: Testing | 3.5 - 4.9 | EXTERNAL | | | | performed at [facility];[address] | mmol/L | LAB | | | | [address];[place] | | | | | | [address] | | | | + + + + + + | Cl | 97 (L)Comment: Testing | 99 - 109 mmol/L | EXTERNAL | | | | performed at [facility];[address] | | LAB | | | | [address];[place] | | | | | | [address] | | | | + + + + + + | CO2 | 34 (H)Comment: Testing | 23 - 32 mmol/L | EXTERNAL | | | | performed at [facility];[address] | | LAB | | | | [address];[place] | | | | | | [address] | | | | + + + + + + | Anion Gap | 12Comment: Testing | 5 - 20 mmol/L | EXTERNAL | | | | performed at [facility];[address] | | LAB | | | | [address];[place] | | | | | | [address] | | | | + + + + + + | Glucose, | 87Comment: Testing | 65 - 99 mg/dL | EXTERNAL | | | Fasting | performed at [facility];[address] | | LAB | | | | [address];[place] | | | | | | [address] | | | | + + + + + + | BUN | 23Comment: Testing | 8 - 25 mg/dL | EXTERNAL | | | | performed at [facility];[address] | | LAB | | | | [address];[place] | | | | | | [address] | | | | + + + + + + | Creatinine | 6.4 (H)Comment: Testing | 0.50 - 1.00 | EXTERNAL | | | | performed at [facility];[address] | mg/dL | LAB | | | | [address];[place] | | | | | | [address] | | | | + + + + + + | BUN/Creatin | 4Comment: Testing | | EXTERNAL | | | ine Ratio | performed at [facility];[address] | | LAB | | | | [address];[place] | | | | | | [address] | | | | + + + + + + | Calcium | 9.5Comment: Testing | 8.5 - 10.5 | EXTERNAL | | | | performed at [facility];[address] | mg/dL | LAB | | | | [address];[place] | | | | | | [address] | | | | + + + + + + | Estimated | CALCULATION NOT | mL/min/1.73m2 | EXTERNAL | | | GFR | PERFORMED. RESULT NOT | | LAB | | | | VALID IF AGE LT 20 | | | | | | YEARS.Comment: Testing | | | | | | performed at [facility];[address] | | | | | | [address];[place], [place] | | | | | | [address] | | | | + + + [...]
--- OUTSIDE RECORDS SUMMARY | ~2019-03-08 | XMS | Encounter Summary ---
Demographics + + + | Address | [address] | | | [place] [address] | + + + | Home Phone [...] + | Author | [facility] | | | and Josephana | + + + | Organization | [facility] | [...] Providers + +------+ + | Care Forest Resources Professor Name | Role | Phone | [...] | | [address] | [place] | (Primary Dx) | | | | [place], [place] | [place], [place] | | | | | [address] | [address] | | | | | [phone] | | | +--------+ + + + [...] [place] | | | | | | [place] [address] | | | | | | [phone] | | | | | | | | +--------+---------+ + + + documented as of this encounter Visit Diagnoses + + | Diagnosis | + + | ESRD (end stage renal disease) (HCC) - Primary End stage renal disease | + + documented in this encounter"
--- OUTSIDE RECORDS SUMMARY | ~2019-03-08 | XMS | Encounter Summary ---
Demographics + + + | Address | [address] | | | [place] [address] | + + + | Home Phone [...] Author | [facility] | | | and Josephana | + + + | Organization | [facility] | | [...] Providers + +------+ + | Care Regional Maintenance Manager Name | Role | Phone [...] NEPHROLOGY [address] | M, DO [address] | | | | | [address] | [place] | | | | | [place], [place] | [place], [place] | | | | | [address] | [address] | | | | | [phone] | | | +--------+ + + + [...] [place] | | | | | | [place] [address] | | | | | | [phone] | | | | | | | | +--------+---------+ + + + documented as of this encounter Visit Diagnoses Not on filedocumented in this encounter"
--- OUTSIDE RECORDS SUMMARY | ~2019-03-08 | XMS | Encounter Summary ---
Demographics + + + | Address | [address] | | | [place] [address] | + + + | Home Phone [...] | | | | | [place] [address] | | + + + + + | Thania Mallory | ECON | [address] | | | | | [place] [address] | | + + + + + | Deidra Weldon | ECON | [address] | | | | | [place] | | | | | [address] | | + + + + + Care Team Providers + +------+ + | Care Nuclear Medicine Medical Director Name | Role | Phone [...] | | | [address] | [facility] | | | | | [address] [place], | [place], [place] | | | | | [place] [address] | [address] | | | | | [phone] | | | +--------+ + + + [...] | | | | | | [place] | | | | | | [address] | | | | | | [phone] | | | | | | | | +--------+ + + + + documented as of this encounter Visit Diagnoses Not on filedocumented in this encounter"
--- OUTSIDE RECORDS SUMMARY | ~2019-03-08 | XMS | Encounter Summary ---
Demographics + + + | Address | [address] | | | [place] [address] | + + + | Home Phone [...] + | Author | [facility] | | | and Josephana | + + + | Organization | [facility] | [...] Providers + +------+ + | Care Education Dean Name | Role | Phone | [...] | Anemia in | Sudhakar Castellanos, | Jorej Obrien DO | | | | | chronic | MD [address] | [address] | | | | | kidney | [address] | [place] | | | | | disease([address] 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 Outpatient Prescriptions Marked as Taking for the 10/28/13 encounter (Off-Site Visit) with Camille Camp, DO Medication Sig Dispense Refill cholecalciferol (VITAMIN D-3) 1,000 units tablet Take 1,000 Units by mouth Daily. cinacalcet (SENSIPAR) 30 mg tablet Take 30 mg by mouth Daily. [DISCONTINUED] Doxercalciferol (HECTOROL IV) Inject 1 mcg into the vein Three times a w eklutna. Epoetin Andres (EPOGEN IJ) 4,400 Units by [...] [facility], [facility] documented in thi s encounter Plan [...] [place] | | | | | | [place] [address] | | | | | | [phone] | | | | | | | [...]
--- OUTSIDE RECORDS SUMMARY | ~2019-03-08 | XMS | Encounter Summary ---
Demographics + + + | Address | [address] | | | [place] [address] | + + + | Home Phone [...] | | | | | [place] [address] | | + + + + + | Thania Mallory | ECON | [address] | | | | | [place] [address] | | + + + + + | Deidra Weldon | ECON | [address] | | | | | [place] | | | | | [address] | | + + + + + Care Team Providers + +------+ + | Care River Rat Name | Role | Phone | + [...] | purpura | [address] | [facility] [address] | | | | | ([facility]) [facility] | [place] | [address] | | | | | ([address] | [address] | Mailcode: | | | | | nlein | [place], [place] | [address] | | | | | purpura) | [address] | [place] | | | | | nephritis | Phone: | [place], [place] | | | | | ([facility]) | [phone] | [address] | | | | | Hemodialysis | Fax: | Phone: | | | | | status | [phone] | [phone] | | | | | ([facility]) | | Fax: | | | | | Chronic | | [phone] | | | | | kidney | | | | | | | disease, | | | | | | | stage V | | | | | | | ([facility]) | | | | | [...] | | 2014 | Encounter | at [facility] [address] | | | | | | [address] Mailcode: | | | | | | [id number] | | | | | | [place], [place] | | | | | | [address] | | | | | | [phone] | | | +--------+ + + + [...] [place] | | | | | | [address] | | | | | | [phone] | | | | | | | [...] | e | 1:18 PM | MEDICARE [address] [facility] | procedure are in the | [...] 2:35 PM PST Echocardiography Laboratory | | [address] | | [place] [address] | | ; | | [id number] | | | | Transthoracic Echocardiogram Report | | | | | | NAME: DARA WELDON Study Date: 01/20/2015 1:18:29 PM | | Order #: [id number] ACC #: [id number] | | | | | | : [...] on 01/20/2015 at 2:35:17 PM | | Marketing Analytics Analyst: YARITZA KLINE RDEDNA | | | | | | cc: | | | | | | Modes utilized | | TTE 05261; Spectral Doppler 99772; Color flow Doppler 83841; | | | | | | | | Final | + + + + + + + | Performing | Address | City/State/Zipcode | Phone Number | | Organization | | | | + + + + + | [facility] | [address] | [place], [place] | | | CARDIOLOGY | [address] | [address] | | + + + + + [...]
--- OUTSIDE RECORDS SUMMARY | ~2019-03-08 | XMS | Encounter Summary ---
Demographics + + + | Address | [address] | | | [place] [address] | + + + | Home Phone [...] | | | | | [place] [address] | | + + + + + | Thania Mallory | ECON | [address] | | | | | [place] [address] | | + + + + + | Deidra Weldon | ECON | [address] | | | | | [place] | | | | | [address] | | + + + + + Care Team Providers + +------+ + | Care Emergency Medicine Name | Role | Phone | + [...] Elizondo | | | | | ([facility]) | [address] | Rd [place], | | | | | Allergic | [place], [place] | [place] | | | | | purpura | [address] | [address] | | | | | ([facility]) | Phone: | Phone: | | | | | | [phone] | [phone] | | | | | | Fax: | Fax: | | | | | | [phone] | [phone] | +--------+--------+ + + + + Encounter Details +--------+ + + + + | Date | Type | Department | Care Team | Description | +--------+ + + + + | 12/20/ | Hospital | Radiology at [facility] | | | | 2012 | Encounter | [address] | | | | | | Mailcode: [address] | | | | | | [place] | | | | | | [place], [place] | | | | | | [address] | | | | | | [phone] | | | +--------+ + + + [...] Denise | | | | | | [place], [place] | | | | | | [address] | | | | | | [phone] | | | | | | | [...] | | + +---------+ + + | [facility] DEPARTMENT OF | | | | | RADIOLOGY | | | | + +---------+ + + documented in this encounter Visit Diagnoses + + | Diagnosis | + + | 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
--- OUTSIDE RECORDS SUMMARY | ~2019-03-08 | XMS | Encounter Summary ---
Demographics + + + | Address | [address] | | | [place] [address] | + + + | Home Phone [...] + + + | Author | [facility] | | | and Josephana | + + + | Organization | [facility] | | | [...] Team Providers + +------+ + | Care Boating Safety Officer Name | Role | Phone [...] | | | | [place], [place] | [phone] | | | | | [address] | | | | | | [phone] | | | +--------+ + + + [...] | | | | | [place] [address] | | | | | | [phone] | | | | | | | [...]
--- OUTSIDE RECORDS SUMMARY | ~2019-03-08 | XMS | Encounter Summary ---
Demographics + + + | Address | [address] | | | [place] [address] | + + + | Home Phone [...] | [facility] | | | and Josephana | + + + | Organization | [facility] | [...] Team Providers + +------+ + | Care Rrts Name | Role | Phone | + +------+ + PCP | Unavailable | + +------+ + Encounter Details +--------+ + + + + | Date | Type | Department | Care Team | Description | +--------+ + + + + | 03/19/ | Hospital | [facility] | Bolivar Mcqueen MD | | | 2009 | Encounter | HOSPITAL EMERGENCY | | | | | | CENTER [address] [place], [place] | | | | | | [address] | | | | | | [phone] | | | +--------+ + + + [...] | | | | | [place] [address] | | | | | | [phone] | | | | | | | | +--------+---------+ + + + documented as of this encounter Visit Diagnoses Not on filedocumented in this encounter"
--- OUTSIDE RECORDS SUMMARY | ~2019-03-08 | XMS | Encounter Summary ---
Demographics + + + | Address | [address] | | | [place] [address] | + + + | Home Phone [...] | Author | [facility] | | | and Josephana | + + + | Organization | [facility] | | [...] Team Providers + +------+ + | Care Ceramic Design Engineer Name | Role | Phone | [...] Dx); Panic disorder | | | | [place], [place] | | | | | | [address] | | | | | | [phone] | | | +--------+ + + + [...] [place] | | | | | | [place] [address] | | | | | | [phone] | | | | | | | | +--------+---------+ + + + documented as of this encounter Visit Diagnoses + + | Diagnosis | + + | Generalized anxiety disorder - Primary | + + | Panic disorder Panic disorder without agoraphobia | + + documented in this encounter"
--- OUTSIDE RECORDS SUMMARY | ~2019-03-08 | XMS | Encounter Summary ---
Demographics + + + | Address | [address] | | | [place] [address] | + + + | Home Phone [...] | Author | [facility] | | | and Josephana | + + + | Organization | [facility] [...] Providers + +------+ + | Care Residency Coordinator Name | Role | Phone | + +------+ + | Jonathan Alonso MD | PCP | | + +------+ + Encounter Details +--------+ + + + + | Date | Type | Department | Care Team | Description | +--------+ + + + + | 08/13/ | Emergency | [facility] | | | | 2019 | | MEDICAL CENTER | | | | | | EMERGENCY CENTER | | | | | | [address] | | | | | | [place], [place] | | | | | | [address] | | | | | | [phone] | | | +--------+ + + + [...] | | | | | renal disease) ([facility]) | protocol | | | [...] [place] | | | | | | [place] [address] | | | | | | [phone] | | | | | | | | +--------+---------+ + + + documented as of this encounter Visit Diagnoses Not on filedocumented in this encounter"
--- OUTSIDE RECORDS SUMMARY | ~2019-03-08 | XMS | Encounter Summary ---
Demographics + + + | Address | [address] | | | [place] [address] | + + + | Home Phone [...] Author | [facility] | | | and Josephana | + + + | Organization | [facility] [...] Team Providers + +------+ + | Care Travel Counselor Name | Role | Phone | [...] [place] | | | | | [place] | [place] [address] | | | | | [address] | [phone] | | | | | [phone] | | | +--------+ + + + [...] | | | | | [place] [address] | | | | | | [phone] | | | | | | | [...] 0.39 m/s | | | MV Dec Coal: 9.46 m/s2 MV DecT: 106.01 ms MV E Shahid: 1.00 | | | m/s MV E/A Ratio: 2.54 E/E' Sept: 23.82 E' Lat: 0.08 m/s | | | E' Sept: 0.04 m/s RAP: 15 mmHg RV S': 0.11 m/s RVSP: | | | 67.64 mmHg TR maxP.64 mmHg TR Vmax: 3.61 m/s | | | Shipping Support Clerk: Authenticated by: René Noonan MD Report Date/Time: | | | -- 53_5-3-0867_57:15:25 | | + + + + + [...] (A-L): 31.60 | | ml/m2LAAs A2C: 18.56 [id number] A-L A2C: 58.49 mlLAESV MOD A2C: 54.57 mlLALs A2C: | | 5.00 cmLAAs A4C: 17.96 [id number] A-L A4C: 52.99 mlLAESV MOD A4C: 44.93 mlLALs A4C: | | 5.18 cmLAESV(MOD BP): 49.83 mlRAAs: 18.33 [id number] A-L: 57.01 mlRAESV MOD: | | 56.24 mlRALs: 5.02 cmTAPSE: 1.98 cmAV Env.Ti: 227.35 msAV maxP.22 mmHgAV | | meanP.25 mmHgAV Vmax: 1.59 m/Elizabeth Vmean: 1.06 m/Elizabeth VTI: 24.30 cmAVA Vmax: | | 2.68 cm2AVA (VTI): 2.73 [id number] Vmax: 0.00 cm2/m2AVAI (VTI): 0.00 cm2/m2LVOT | | Env.Ti: 210.72 msLVOT maxP.99 mmHgLVOT meanP.87 mmHgLVSI Dopp: 37.17 | | ml/m2LVSV Dopp: 66.54 mlLVOT Vmax: 1.41 m/sLVOT Vmean: 1.03 m/sLVOT VTI: 21.88 | | cmMV A Shahid: 0.39 m/sMV Dec Coal: 9.46 m/s2MV DecT: 106.01 msMV E Shahid: 1.00 | | m/sMV E/A Ratio: 2.54E/E' Sept: 23.82E' Lat: 0.08 m/sE' Sept: 0.04 m/sRAP: 15 | | mmHgRV S': 0.11 m/sRVSP: 67.64 mmHgTR maxP.64 mmHgTR Vmax: 3.61 m/s | | Shipping Support Clerk:Authenticated by: René Noonan MDReport Date/Time: -- 76_[id number]_72:15:25 | | IMPRESSION: 1. Overall left ventricular [...] cm | |TIMA Vmax: 2.68 cm2 | |TIAM (VTI): 2.73 cm2 | |AVAI Vmax: 0.00 cm2/m2 | |AVAI (VTI): 0.00 cm2/m2 | |LVOT Env.Ti: 210.72 ms | |LVOT maxP.99 mmHg | |LVOT meanP.87 mmHg | |LVSI Dopp: 37.17 ml/m2 | |LVSV Dopp: 66.54 ml | |LVOT Vmax: 1.41 m/s | |LVOT Vmean: 1.03 m/s | |LVOT VTI: 21.88 cm | |MV A Shahid: 0.39 m/s | |MV Dec Coal: 9.46 m/s2 | |MV DecT: 106.01 ms | |MV E Shahid: 1.00 m/s | |MV E/A Ratio: 2.54 | |E/E' Sept: 23.82 | |E' Lat: 0.08 m/s | |E' Sept: 0.04 m/s | |RAP: 15 mmHg | |RV S': 0.11 m/s | |RVSP: 67.64 mmHg | |TR maxP.64 mmHg | |TR Vmax: 3.61 m/s | | | |Shipping Support Clerk: | |Authenticated by: René Noonan MD | |Report Date/Time: -- [id number]_25:15:25 | | | |IMPRESSION: | |1. Overall [...]
--- OUTSIDE RECORDS SUMMARY | ~2019-03-08 | XMS | Encounter Summary ---
Demographics + + + | Address | [address] | | | [place] [address] | + + + | Home Phone [...] Author | [facility] | | | and [place]ana | + + + | Organization | [facility] | | [...] Team Providers + +------+ + | Care Content Assistant Name | Role | Phone | + +------+ + PCP | Unavailable | + +------+ + Encounter Details +--------+ + + + + | Date | Type | Department | Care Team | Description | +--------+ + + + + | 07/10/ | Hospital | [facility] | | | | 2008 - | Encounter | [facility] | | | | | | [address] | | | | 08/03/ | | [place] [id number] | | | | 2008 | | [phone] | | | +--------+ + + + [...] [place] | | | | | | [place] [address] | | | | | | [phone] | | | | | | | | +--------+---------+ + + + documented as of this encounter Visit Diagnoses Not on filedocumented in this encounter"
--- OUTSIDE RECORDS SUMMARY | ~2019-03-08 | XMS | Encounter Summary ---
Demographics + + + | Address | [address] | | | [place] [address] | + + + | Home Phone [...] | | | | | [place] [address] | | + + + + + | Thania Mallory | ECON | [address] | | | | | [place] [address] | | + + + + + | Deidra Weldon | ECON | [address] | | | | | [place] | | | | | [address] | | + + + + + Care Team Providers + +------+ + | Care Fiscal Technician Name | Role | Phone | [...] | | | | [address] [place] | [facility] | | | | | [place], | [place], [place] | | | | | [place] [address] | [address] | | | | | [phone] | | | +--------+ + + + [...] Denise | | | | | | [place] | | | | | | [address] | | | | | | [phone] | | | | | | | | +--------+ + + + + documented as of this encounter Visit Diagnoses Not on filedocumented in this encounter"
--- OUTSIDE RECORDS SUMMARY | ~2019-03-08 | XMS | Encounter Summary ---
Demographics + + + | Address | [address] | | | [place] [address] | + + + | Home Phone [...] | | | | | [place] [address] | | + + + + + | Thania Mallory | ECON | [address] | | | | | [place] [address] | | + + + + + | Deidra Weldon | ECON | [address] | | | | | [place] | | | | | [address] | | + + + + + Care Team Providers + +------+ + | Care Welding Pantograph Operator Name | Role | Phone | + +------+ + | Shahid Camargo MD | PCP | | + +------+ + Encounter Details +--------+ + + + + | Date | Type | Department | Care Team | Description | +--------+ + + + + | 12/20/ | Hospital | Radiology at [facility] | | | | 2012 | Encounter | [address] | | | | | | Mailcode: L340 | | | | | | [place] | | | | | | [place], [place] | | | | | | [address] | | | | | | [phone] | | | +--------+ + + + [...] [place] | | | | | | [address] | | | | | | [phone] | | | | | | | [...] | e | 9:29 AM | MEDICARE 0058 | procedure are in the | | [...] MDAuthor: | | | | | | SHARLNEE NAILS MD I have | | | [...]
--- OUTSIDE RECORDS SUMMARY | ~2019-03-08 | XMS | Encounter Summary ---
Demographics + + + | Address | [address] | | | [place] [address] | + + + | Home Phone [...] Author | [facility] | | | and Josephana | + + + | Organization | [facility], [...] Team Providers + +------+ + | Care Mattress Maker Name | Role | Phone | [...] | | [address] | [place] | | | | | [place], [place] | [place], [place] | | | | | [address] | [address] | | | | | [phone] | | | +--------+--------+ + + + [...] | | | | | | [place] [address] | | | | | | [phone] | | | | | | | | +--------+---------+ + + + documented as of this encounter Visit Diagnoses Not on filedocumented in this encounter"
--- OUTSIDE RECORDS SUMMARY | ~2019-03-08 | XMS | Encounter Summary ---
Demographics + + + | Address | [address] | | | [place] [address] | + + + | Home Phone [...] | | | | | [place] [address] | | + + + + + | Thania Mallory | ECON | [address] | | | | | [place] [address] | | + + + + + | Deidra Weldon | ECON | [address] | | | | | [place] | | | | | [address] | | + + + + + Care Team Providers + +------+ + | Care Channel Sales Manager Name | Role | Phone [...] | | [address] | [facility] | | | | | Caro [facility], | [place], [place] | | | | | [place] [address] | [address] | | | | | [phone] | | | +--------+ + + + [...] | | | | | [place] | | | | | | [address] | | | | | | [phone] | | | | | | | | +--------+ + + + + documented as of this encounter Visit Diagnoses Not on filedocumented in this encounter"
--- OUTSIDE RECORDS SUMMARY | ~2019-03-08 | XMS | Encounter Summary ---
Demographics + + + | Address | [address] | | | [place] [address] | + + + | Home Phone [...] Author | [facility] | | | and Josephana | + + + | Organization | [facility] | | [...] Team Providers + +------+ + | Care Cephalometric Analyst Name | Role | Phone | [...] | Encounter | JOY | MD Emanuel [address] | | | | | [address] | [facility] | | | | | [address] | [place], [place] | | | | | [place], [place] | [address] | | | | | [address] | [phone] | | | | | [phone] | | | +--------+ + + + [...] [address] | | | | | | [place] [address] | | | | | | [phone] | | | | | | | | +--------+---------+ + + + documented as of this encounter Visit Diagnoses Not on filedocumented in this encounter"
--- OUTSIDE RECORDS SUMMARY | ~2019-03-08 | XMS | Encounter Summary ---
Demographics + + + | Address | [address] | | | [place] [address] | + + + | Home Phone [...] | | | | | [place] [address] | | + + + + + | Thania Mallory | ECON | [address] | | | | | [place] [address] | | + + + + + | Deidra Weldon | ECON | [address] | | | | | [place] | | | | | [address] | | + + + + + Care Team Providers + +------+ + | Care It Intern Name | Role | Phone | [...] Shun | | | | | [address] | [facility] | | | | | Caro [facility], | [place], [place] | | | | | [place] [address] | [address] | | | | | [phone] | | | +--------+ + + + [...] Denise | | | | | | [place] | | | | | | [address] | | | | | | [phone] | | | | | | | | +--------+ + + + + documented as of this encounter Visit Diagnoses Not on filedocumented in this encounter"
--- OUTSIDE RECORDS SUMMARY | ~2019-03-08 | XMS | Encounter Summary ---
Demographics + + + | Address | [address] | | | [place] [address] | + + + | Home Phone [...] Author | [facility] | | | and Josephana | + + + | Organization | [facility] | | [...] Providers + +------+ + | Care Marine Habitat Resource Specialist Name | Role | Phone [...] NEPHROLOGY [address] | M, DO [address] | | | | | [address] | [place] | | | | | [place], [place] | [place], [place] | | | | | [address] | [address] | | | | | [phone] | | | +--------+ + + + [...] in her mid left upper arm AVF. RECORD CENTER COORDINATOR today = 230 mmHg. In view of this will start her on ASA 81 mg, QD, and Plavix 75 mg, daily for prevention of AVF thrombosis, given the former indwelling stent. She was called by radiology residentElisabeth to begin above. : [facility] documented in this encounter Plan of Treatment +--------+---------+ + + + | Date | Type | Specialty | Care Team | Description | +--------+---------+ + + + | 04/18/ | Office | Pulmonology | Denny Alexander | | | 2019 | Visit | | Deny Briggs MD [address] | | | | | | [address] | | | | | | [place] [address] | | | | | | [phone] | | | | | | | | +--------+---------+ + + + documented as of this encounter Visit Diagnoses Not on filedocumented in this encounter
--- OUTSIDE RECORDS SUMMARY | ~2019-03-08 | XMS | Encounter Summary ---
Demographics + + + | Address | [address] | | | [place] [address] | + + + | Home Phone [...] | | | | | [place] [address] | | + + + + + | Thania Mallory | ECON | [address] | | | | | [place] [address] | | + + + + + | Deidra Weldon | ECON | [address] | | | | | [place] | | | | | [address] | | + + + + + Care Team Providers + +------+ + | Care Head Trimmer Name | Role | Phone | [...] Shun | | | | | at [facility] | [facility] | | | | | [address] | [place] [address] | | | | | Loop Mailcode: | | | | | | [id number] [facility] | | | | | | [facility] | | | | | | [place], [place] | | | | | | [address] | | | | | | [phone] | | | +--------+ + + + [...] | | | | | [place], [place] | | | | | | [address] | | | | | | [phone] | | | | | | | [...] | e | 11:49 AM | MEDICARE 5399 | procedure are in the | | [...] view image for the detailed interpretation from [facility] results. | CARDIOLOGY | + + + + + | Procedure Note | + + | Interface, Cardiology Results - 12/21/2012 9:38 AM PDT Please click on view image | | for the detailed interpretation from [facility] results. 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
--- OUTSIDE RECORDS SUMMARY | ~2019-03-08 | XMS | Encounter Summary ---
Demographics + + + | Address | [address] | | | [place] [address] | + + + | Home Phone [...] | [facility] | | | and Josephana | + + + | Organization | [facility] [...] Providers + +------+ + | Care Millinery Worker Name | Role | Phone | [...] CARE FLO[address] | [place] [address] | Dx); ESRD needing | | 01/26/ | | [address] | [phone] | dialysis ([facility]); | | 2019 | | [place], [place] | | Chronic pleural | | | | [address] | Omar Hatch MD [address] | effusion; | | | | [phone] | [address] | Noncompliance with | | | | | [place] [address] | renal dialysis | | | | | [phone] | ([facility]); Acute | | | | | | respiratory | | | | | Sotero Reinoso MD | distress; Anemia in | | | | | [address] | ESRD (end-stage | | | | | [place], [place] | renal disease) | | | | | [address] | ([facility]); At high risk | | | | | | for electrolyte | | | | | Usha Martínez MD | imbalance; ESRD on | | | | | [address] | hemodialysis ([facility]); | | | | | [place] [address] | Hyperphosphatemia; | | | | | [phone] | Noncompliance; | | | | | [...] note might be different from pierre coleman. [facility] Service: Hospitalist Discharge Summary Date [...] CHEST AP PORTABLE (01/07/2019); CHEST TWO VIEWS 05489 (01/06/2019); XR CHEST AP PORTABLE (12/13/2018); FINDINGS: [...] CHEST AP PORTABLE (01/07/2019); CHEST TWO VIEWS 35141 (01/06/2019); FINDINGS: Mild cardiomegaly. No pneumothorax. Interstitial [...] Confirmed by MUSE READ ONLY, -COMPUTER ([id number]), commissioning editor Daniela Luciano ([id number]) on 01/24/2019 5:16: [...] to Gram-positive bacteria 12/12/2018 Clotted dialysis access ([facility]) 2014 Congestive heart failure (HCC) ESRD (end stage renal disease) (HCC) HSP (Henoch-Schonlein purpura) nephritis ([facility]) 1987 Hypertension Pericardial effusion without cardiac tamponade 11/07/2018 Past Surgical History: Procedure Laterality Date ABDOMEN SURGERY AV FISTULA REPAIR 02/24/2014 LEFT Radical Cephalic Fistula Creation; Laterality: Left; Surgeon: Blake Chavarria MD ; Location: [facility] OR AV FISTULA REPAIR Left 03/07/2014 Procedure: AV FISTULA - GRAFT REPAIR/REVISION; Surgeon: Rik Simon MD; Location: [facility] OR; Service: Vascular; Laterality: Left; biopsy of kidney age 10 DIALYSIS FISTULA CREATION 04/08/2014 Procedure: DIALYSIS CATHETER - INSERTION; Surgeon: Rik Simon MD; Location: [facility] ; Service: Vascular; Laterality: N/A; tunneled catheter.br hemodialysis catheter KIDNEY BIOPSY Left 2003 OTHER SURGICAL HISTORY LAPAROSCOPIC PERITONEAL DIALYSIS CATHETER INSERTION - x2 OTHER SURGICAL HISTORY Right 07/2013 LAPAROSCOPIC PERITONEAL DIALYSIS CATHETER INSERTION - current dialysis access MWF dialysis OTHER SURGICAL HISTORY Left 06/24/2014 SUPERFICIALIZATION OF AV FISTULA - Procedure: AV FISTULA - SUPERFICIALIZATION; Surgeon: Emanuel Simon MD; Location: [facility] OR; Service: Vascular; Laterality: Left; OTHER SURGICAL HISTORY Left 04/08/2014 AV FISTULA PLACEMENT - Procedure: AV FISTULA; Surgeon: Rik Simon MD; Location: [facility]; Service: Vascular; Laterality: Left; cephalic OTHER SURGICAL HISTORY Left 03/07/2014 DECLOT GRAFT - Procedure: GRAFT - DECLOT; Surgeon: Rik Simon MD; Location: [facility] OR ; Service: Vascular; Laterality: Left; [...] Follow up: Jonathan C Gavin, MD [address] [place] [place] [address] Schedule an appointment as soon as possible [...] | | | renal disease) ([facility]) | protocol | | | [...] Chronic pleural effusion [J90] Recommendations: No acute NATIONAL BUSINESS DIRECTOR indication Management of the right pleural effusion [...] PRN hydralazine. Pt also co [facility] for which she i s [...] [address] | | | | | | [place] [address] | | | | | | [phone] | | | | | | | [...] R?MRN: | | | | | | [id number] | | | [id number] | | | riteri | | | [...] | | | St. | | | [place] | | | y | | | [...] | | | St. | | | [place] | | | y | | | [...] | | | St. | | | [place] | | | y | | | [...] | | | St | | | [place] | | | y | | | [...] St | | | | | | [place] | | | y | | | [...] | | | St. | | | [place] | | | y | | | [...] | | | St. | | | [place] | | | y H. | | [...] | | | St. | | | [place] | | | y H. | | [...] | | | St. | | | [place] | | | y H. | | [...] | | | St. | | | [place] | | | y H. | | [...] | | | St. | | | [place] | | | y H. | | [...] | | | St. | | | [place] | | | y H. | | [...] | | | MD | | | Water Mangle Tender | | | al | | | [...] | | | [id number] | | | [id number] | | | eb | | | [...] [facility] | | | | performed at [facility], [address] | | LABORATORY | | | | [address], | | | | | | [place] [address] | | | | + + + + + + + + | Specimen | + + | | + + + + + + + | Performing | Address | City/State/Zipcode | Phone Number | | Organization | | | | + + + + + | [facility] | [address] | [place] [address] | [phone] | + + + + + CBC [...] [facility] | | | | performed at [facility], [address] | | LABORATORY | | | | [address], | | | | | | [place] [address] | | | | + + + + + + + + | Specimen | + + | | + + + + + + + | Performing | Address | City/State/Zipcode | Phone Number | | Organization | | | | + + + + + | [facility] | [address] | [place] [address] | [phone] | + + + + + Renal [...] | | | | | [place] [address] | | | | + + + + + + + + | Specimen | + + | Blood | + + + + + + + | Performing | Address | City/State/Zipcode | Phone Number | | Organization | | | | + + + + + | [facility] | [address] | [place] [address] | [phone] | + + + + + HEMODIALYSIS [...] [R06.02] | | | ESRD needing dialysis ([facility]) [N18.6, Z99.2] Chronic pleural effusion [...] Testing | 1.7 - 2.4 mg/dL | [facility] | | | | performed at [facility], [address] | | LABORATORY | | | | [address], | | | | | | [place] [address] | | | | + + + + + + + + | Specimen | + + | | + + + + + + + | Performing | Address | City/State/Zipcode | Phone Number | | Organization | | | | + + + + + | [facility] | [address] | [place] [address] | [phone] | + + + + + CBC [...] [facility] | | | | performed at [facility], [address] | | LABORATORY | | | | [address], | | | | | | [place] [address] | | | | + + + + + + + + | Specimen | + + | | + + + + + + + | Performing | Address | City/State/Zipcode | Phone Number | | Organization | | | | + + + + + | [facility] | [address] | [place] [address] | [phone] | + + + + + Renal [...] 7 (L)Comment: GFR <60: | >60 | [facility] [...] | | | | | | MDRD IDDC traceable | | | | | | equation.Testing | | | | | | performed at [facility], [address] | | | | | | [facility], | | | | | | [place] [address] | | | | + + + + + + + + | Specimen | + + | Blood | + + + + + + + | Performing | Address | City/State/Zipcode | Phone Number | | Organization | | | | + + + + + | [facility] | [address] | [place] [address] | [phone] | + + + + + Iron [...] | | | Saturation | performed at [facility], [address] | | LABORATORY | | | | [address], | | | | | | [place] [address] | | | | + + + + + + + + | Specimen | + + | Blood | + + + + + + + | Performing | Address | City/State/Zipcode | Phone Number | | Organization | | | | + + + + + | [facility] | [address] | [place] [address] | [phone] | + + + + + Ferritin (01/24/2019 5:53 AM PST) + + + + + + | Component | Value | Ref Range | Performed | Pathologist | | | | | At | Signature | + + + + + + | Ferritin | 805 (H)Comment: Testing | 6 - 170 ng/mL | [facility] | | | | performed at [facility], [address] | | LABORATORY | | | | [address], | | | | | | [place] [address] | | | | + + + + + + + + | Specimen | + + | Blood | + + + + + + + | Performing | Address | City/State/Zipcode | Phone Number | | Organization | | | | + + + + + | [facility] | [address] | [place] [address] | [phone] | + + + + + Creatine [...] Court, | | | | | | [place] [address] | | | | + + + + + + | CK-MB | 0Comment: Testing | 0 - 3 % | [facility] | | | | performed by [employer], | | LABORATORY | | | | [address], | | | | | | [place] [address] | | | | + + + + + + | CK-BB | 0Comment: Testing | 0 % | [facility] | | | | performed by [facility], | | LABORATORY | | | | [address], | | | | | | [place] [address] | | | | + + + + + + | CK, Total | 156Comment: Testing | 24 - 173 U/L | [facility] | | | | performed at [employer], | | LABORATORY | | | | [address], | | | | | | [place] [address] | | | | + + + [...] [address], | | | | | | [place] [address] | | | | + + + + + + + + | Specimen | + + | Blood | + + + + + + + | Performing | Address | City/State/Zipcode | Phone Number | | Organization | | | | + + + + + | [facility] | [address] | [place] [address] | [phone] | + + + + + Phosphorus (01/24/2019 5:53 AM PST) + + + + + + | Component | Value | Ref Range | Performed | Pathologist | | | | | At | Signature | + + + + + + | Phosphorus | 8.6 (H)Comment: Testing | 2.3 - 4.8 mg/dL | [facility] | | | | performed at [facility], [address] | | LABORATORY | | | | [address], | | | | | | [place] [address] | | | | + + + + + + + + | Specimen | + + | Blood | + + + + + + + | Performing | Address | City/State/Zipcode | Phone Number | | Organization | | | | + + + + + | [facility] | [address] | [place] [address] | [phone] | + + + + + Magnesium (01/24/2019 5:53 AM PST) + + + + + + | Component | Value | Ref Range | Performed | Pathologist | | | | | At | Signature | + + + + + + | Magnesium | 2.6 (H)Comment: Testing | 1.7 - 2.4 mg/dL | [facility] | | | | performed at [facility], [address] | | LABORATORY | | | | [address], | | | | | | [place] [address] | | | | + + + + + + + + | Specimen | + + | Blood | + + + + + + + | Performing | Address | City/State/Zipcode | Phone Number | | Organization | | | | + + + + + | [facility] | [address] | [place] [address] | [phone] | + + + + + Basic [...] Hospital, | | | | | | [place] [address] | | | | + + + + + + + + | Specimen | + + | Blood | + + + + + + + | Performing | Address | City/State/Zipcode | Phone Number | | Organization | | | | + + + + + | [facility] | [address] | [place] [address] | [phone] | + + + + + CBC [...] W | | | | | | [employer], | | | | | | [place] [address] | | | | | |Testing performed at [facility], [address] [facility] [place], [place] [address] | | | | | | | | | | + + +---- + + + + + | Specimen | + + | Blood | + + + + + + + | Performing | Address | City/State/Zipcode | Phone Number | | Organization | | | | + + + + + | [facility] | [address] | [place] [address] | [phone] | + + + + + Troponin [...] | | | | | [facility];[address] [facility] | | | | | | vd;[place] [address] | | | | + + + + + + + + | Specimen | + + | Blood | + + + + + + + | Performing | Address | City/State/Zipcode | Phone Number | | Organization | | | | + + + + + | [facility] | [address] | [place] [address] | [phone] | + + + + + XR [...] CHEST AP PORTABLE (01/07/2019); CHEST TWO VIEWS 01410 (01/06/2019); | | | FINDINGS: Mild cardiomegaly. [...] PORTABLE (01/07/2019); CHEST | | TWO VIEWS 11713 (01/06/2019); | | | | FINDINGS: | [...] (H)Comment: | 0 - 100 pg/mL | [facility] | | | | Testing performed at | | LABORATORY | | | | [facility];[address] [place] [address] | | | | | | Blvd;[place] [address] | | | | + + + + + + + + | Specimen | + + | Blood | + + + + + + + | Performing | Address | City/State/Zipcode | Phone Number | | Organization | | | | + + + + + | [facility] | [address] | [place] [address] | [phone] | + + + + + Phosphorus (01/23/2019 11:26 PM PST) + + + + + + | Component | Value | Ref Range | Performed | Pathologist | | | | | At | Signature | + + + + + + | Phosphorus | 7.9 (H)Comment: Testing | 2.3 - 4.8 mg/dL | [facility] | | | | performed at [facility];[address] | | LABORATORY | | | | [address];[place], [place] | | | | | | [address] | | | | + + + + + + + + | Specimen | + + | Blood | + + + + + + + | Performing | Address | City/State/Zipcode | Phone Number | | Organization | | | | + + + + + | [facility] | [address] | [place] [address] | [phone] | + + + + + Troponin [...] | | | | [facility];[address] [facility] | | | | | | [facility];[place] [address] | | | | + + + + + + + + | Specimen | + + | Blood | + + + + + + + | Performing | Address | City/State/Zipcode | Phone Number | | Organization | | | | + + + + + | [facility] | [address] | [place] [address] | [phone] | + + + + + Comprehensive [...] | | | performed at [facility];[address] | | | | | | [facility];[place], [place] | | | | | | [address] | | | | + + + + + + + + | Specimen | + + | Blood | + + + + + + + | Performing | Address | City/State/Zipcode | Phone Number | | Organization | | | | + + + + + | [facility] | [address] | [place] [address] | [phone] | + + + + + CBC [...] | LABORATORY | | | | [facility];[address] [place] [address] | | | | | | Blvd;[place] [address] | | | | + + + + + + + + | Specimen | + + | Blood | + + + + + + + | Performing | Address | City/State/Zipcode | Phone Number | | Organization | | | | + + + + + | [facility] | [address] | [place] [address] | [phone] | + + + + + XR [...] (01/07/2019); CHEST TWO | | | VIEWS 22245 (01/06/2019); XR CHEST AP PORTABLE (12/13/2018); | [...] CHEST AP PORTABLE (01/07/2019); CHEST TWO VIEWS 84129 (01/06/2019); XR | | CHEST AP PORTABLE [...] | | | | | ONLY, -COMPUTER ([id number]), | | | | | | commissioning editor Daniela Luciano | | | | [...] | | patient, procedure, equipment, production support consultant and site/side marked as | | | [...] space: 6th Puncture method: | | | vtay-uhu-zyrdaa catheter Number of attempts: 1 Drainage amount: [...] | | | | | | | [facility] 01/24/19 at 0305 | | | [...] | | | | | dose on [facility] 01/24/19 at 0900 | | AM [...] | | | | | | Starting [facility] 01/24/19 at 0304 | | | [...] | | Arm | | Intravenous, ONCE, [facility] 01/24/19 | | AM PST | | | | | at 0125, For 1 dose | | | | | | + +-------+ +--------+---+--------+ +---+---+ | | | +---+---+ + +-------+ +--------+---+---+ | HYDROmorphone (DILAUDID) | Given | 01/25/20 | 0.5 mg | | | | injection 0.5 mg 0.5 mg, | | 19 1:13 | | | | | Intravenous, ONCE, [facility] 01/24/19 | | PM PST | | | | | at 1215, For 1 dose | | | | | | + +-------+ +--------+---+---+ +---+---+ | | | +---+---+ + +-------+ +------+---+---+ | HYDROmorphone (DILAUDID) | Given | 01/25/20 | 1 mg | | | | injection 1 mg 1 mg, | | 19 4:20 | | | | | Intravenous, ONCE, [facility] 01/24/19 | | AM PST | [...] 19 1:46 | | | | | [facility] 01/24/19 at 0030, For 1 dose [...] PST | | | | | Starting [facility] 01/24/19 at 0355, | | | [...] 19 2:47 | | | | | [facility] 01/24/19 at 0240, For 1 dose [...] nonresponsive to | | | Tylenol, Starting [facility] 01/24/19 at | | | 1409 [...]
--- OUTSIDE RECORDS SUMMARY | ~2019-03-08 | XMS | Encounter Summary ---
Demographics + + + | Address | [address] | | | [place] [address] [...] | Author | [facility] | | | and Josephana | + + + | Organization | [facility] [...] Team Providers + +------+ + | Care Homicide Detective Name | Role | Phone | [...] + + | 02/24/ | Anesthesia | [facility] | Celso Dacosta | Obesity (BMI | | 2013 | Event | MED CTR OR INTRA OP | MD Douglas [address] | 30.0-34.9) (Primary | | | | [address] | [address] [place] | Dx) | | | | [place] | [address] | | | | | [address] | | | | | | [phone] | | | +--------+ + + + [...] +----+---+ + + | | 0 | Powell | | | | 7 | 43-degrees [...] +----+---+ + + | | 1 | Powell off | | | | 0 | [...] | [READ | ([facility] | 02/24/14 1045 by | 05/28/18 [...] | [READ | ([facility]); | 02/24/14 1049 by | 05/28/18 [...] E | | | | | | [place] [address] | | | | | | [phone] | | | | | | | [...]
--- OUTSIDE RECORDS SUMMARY | ~2019-03-08 | XMS | Encounter Summary ---
Demographics + + + | Address | [address] | | | [place] [address] | + + + | Home Phone [...] | | | | | [place] [address] | | + + + + + | Thania Mallory | ECON | [address] | | | | | [place] [address] | | + + + + + | Deidra Weldon | ECON | [address] | | | | | [place] | | | | | [address] | | + + + + + Care Team Providers + +------+ + | Care Asset Protection Manager Name | Role | Phone | + +------+ + | Shahid Camargo MD | PCP | | + +------+ + Encounter Details +--------+ + + + + | Date | Type | Department | Care Team | Description | +--------+ + + + + | 12/20/ | Hospital | Radiology at [facility] | | | | 2012 | Encounter | [address] | | | | | | Mailcode: L340 | | | | | | [place] | | | | | | [place], [place] | | | | | | [address] | | | | | | [phone] | | | +--------+ + + + [...] Denise | | | | | | [place], [place] | | | | | | [address] | | | | | | [phone] | | | | | | | [...] | e | 9:27 AM | MEDICARE [id number] | procedure are in the | | [...]
--- OUTSIDE RECORDS SUMMARY | ~2019-03-08 | XMS | Encounter Summary ---
Demographics + + + | Address | [address] | | | [place] [address] | + + + | Home Phone [...] Author | [facility] | | | and Josephana | + + + | Organization | [facility] [...] Providers + +------+ + | Care Gas Operations Analyst Name | Role | Phone | [...] NEPHROLOGY [address] | M, DO [address] | | | | | [address] | [address] | | | | | [place], [place] | [place], [place] | | | | | [address] | [address] | | | | | [phone] | | | +--------+ + + + [...] original. Subjective: DIALYSIS NOTE Patient ID: Dara eWldon is a 18 y.o. female. HPI Comments: [...] through the Nephrology Se ction at either [facility] or [facility]? 6. Anemia--will continue the EPO at current dose and recheck the Fe stores next quarter. Plan: 1. Her PTH appears stable on a minimal dose of Hectorol. 2. Will continue to monitor her BP closely. 3. She appears very cooperative and collegial here in clinic. CC: [place] Fina documented in thi s encounter Plan [...] [place] | | | | | | [place] [address] | | | | | | [phone] | | | | | | | | +--------+---------+ + + + documented as of this encounter Visit Diagnoses Not on filedocumented in this encounter"
--- OUTSIDE RECORDS SUMMARY | ~2019-03-08 | XMS | Encounter Summary ---
Demographics + + + | Address | [address] | | | [place] [address] | + + + | Home Phone [...] | | | | | [place] [address] | | + + + + + | Thania Mallory | ECON | [address] | | | | | [place] [address] | | + + + + + | Deidra Weldon | ECON | [address] | | | | | [place] | | | | | [address] | | + + + + + Care Team Providers + +------+ + | Care Security Lead Name | Role | Phone | [...] Shun | | | | | at [facility] | [facility] | | | | | [address] | [place] [address] | | | | | Loop Mailcode: | | | | | | OP12B [facility] | | | | | | Replaced By [facility] | | | | | | [place], [place] | | | | | | [address] | | | | | | [phone] | | | +--------+ + + + [...] Denise | | | | | | [place], [place] | | | | | | [address] | | | | | | [phone] | | | | | | | [...] | e | 11:49 AM | MEDICARE 1351 | procedure are in the | | [...] view image for the detailed interpretation from [facility] results. | CARDIOLOGY | + + + + + | Procedure Note | + + | Interface, Cardiology Results - 12/21/2012 9:38 AM PDT Please click on view image | | for the detailed interpretation from [facility] results. 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
--- OUTSIDE RECORDS SUMMARY | ~2019-03-08 | XMS | Encounter Summary ---
Demographics + + + | Address | [address] | | | [place] [address] | + + + | Home Phone [...] | Author | [facility] | | | and Josephana | + + + | Organization | [facility] | [...] + +------+ + | Care It Security Consulting Director Name | Role | Phone | [...] West | renal disease) ([facility]) | | | | [address] | [address] | (Primary Dx); | | | | [place], [place] | [place], [place] | Anemia in ESRD | | | | [address] | [address] | (end-stage renal | | | | [phone] | | disease) ([facility]) [...] into the vein Three times a w lovelock. iron sucrose (VENOFER) 20 mg/mL injection Inject [...] the Nephrology Team in 2 weeks. CC: [place] Fina Joy MD, [facility], [facility] signed by Jorje Camp DO at [...] [place] | | | | | | [place] [address] | | | | | | [phone] | | | | | | | [...]
--- OUTSIDE RECORDS SUMMARY | ~2019-03-08 | XMS | Encounter Summary ---
Demographics + + + | Address | [address] | | | [place] [address] | + + + | Home Phone [...] Author | [facility] | | | and Josephana | + + + | Organization | [facility] | | | [...] Providers + +------+ + | Care Brickmason Apprentice Name | Role | Phone | [...] NEPHROLOGY [address] | MD [address] | intermittent, | | | | [address] | [address] [place] | uncomplicated | | | | [place], [place] | [place] [address] | (Primary Dx) | | | | [address] | [phone] | | | | | [phone] | | | +--------+ + + + [...] DAV[place]SON | | | | | | [place] [address] | | | | | | [phone] | | | | | | | | +--------+---------+ + + + documented as of this encounter Visit Diagnoses + + | Diagnosis | + + | Asthma, mild intermittent, uncomplicated - Primary | + + documented in this encounter"
--- OUTSIDE RECORDS SUMMARY | ~2019-03-08 | XMS | Encounter Summary ---
Demographics + + + | Address | [address] | | | [place] [address] | + + + | Home Phone [...] | Author | [facility] | | | and Josephana | + + + | Organization | [facility] [...] Team Providers + +------+ + | Care Mark Up Designer Name | Role | Phone | [...] | stage renal | [address] | [address] [place] [address] | | | | | disease) | Shun Griffin | [place] [address] | | | | | ([facility]) | [address] | [address] [place] | | | | | Anemia in | [place], [place] | [place] | | | | | ESRD | [address] | [address] Phone: | | | | | (end-stage | Phone: | [phone] | | | | | renal | [phone] | Fax: | | | | | disease) | Fax: | [phone] | | | | | ([facility]) | [phone] | | | | | | Procedures [...] | | [address] | [address] | (Primary Dx) | | | | [place], [place] | [place], [place] | | | | | [address] | [address] | | | | | [phone] | | | +--------+ + + + [...] [place] | | | | | | [place] [address] | | | | | | [phone] | | | | | | | | +--------+---------+ + + + documented as of this encounter Visit Diagnoses + + | Diagnosis | + + | ESRD (end stage renal disease) (HCC) - Primary End stage renal disease | + + documented in this encounter"
--- OUTSIDE RECORDS SUMMARY | ~2019-03-08 | XMS | Encounter Summary ---
Demographics + + + | Address | [address] | | | [place] [address] | + + + | Home Phone [...] | | | | | [place] [address] | | + + + + + | Thania Mallory | ECON | [address] | | | | | [place] [address] | | + + + + + | Deidra Weldon | ECON | [address] | | | | | [place] | | | | | [address] | | + + + + + Care Team Providers + +------+ + | Care Grain Thresher Name | Role | Phone | + [...] | | | | [address] [place] | [facility] | | | | | Park [facility], | [place], [place] | | | | | [place] [address] | [address] | | | | | [phone] | | | +--------+ + + + [...] Denise | | | | | | [place] | | | | | | [address] | | | | | | [phone] | | | | | | | | +--------+ + + + + documented as of this encounter Visit Diagnoses Not on filedocumented in this encounter"
--- OUTSIDE RECORDS SUMMARY | ~2019-03-08 | XMS | Encounter Summary ---
Demographics + + + | Address | [address] | | | [place] [address] | + + + | Home Phone [...] | | | | | [place] [address] | | + + + + + | Thania Mallory | ECON | [address] | | | | | [place] [address] | | + + + + + | Deidra Weldon | ECON | [address] | | | | | [place] | | | | | [address] | | + + + + + Care Team Providers + +------+ + | Care Child Center Assistant Name | Role | Phone [...] [address] | | | | | ([facility]) | [place] | Mailcode: | | | | | Procedures | Long Chan | D[facility] | | | | | TRANSTHORACI | [place], [place] | [place] | | | | | C | [address] | [place], [place] | | | | | ECHOCARDIOGR | Phone: | [address] | | | | | AM, PEDS | [phone] | Phone: | | | | | | Fax: | [phone] | | | | | | [phone] | Fax: | | | | | | | [phone] | +--------+--------+ + + + + Reason [...] | | [address] | [facility] | | | | | Park [place], | [place], [place] | | | | | [place] [address] | [address] | | | | | [phone] | | | +--------+ + + + [...] Denise | | | | | | [place], [place] | | | | | | [address] | | | | | | [phone] | | | | | | | [...] view image for the detailed interpretation from [facility] results. | CARDIOLOGY | + + + + + | Procedure Note | + + | Interface, Cardiology Results - 12/21/2012 9:38 AM PDT Please click on view image | | for the detailed interpretation from [facility] results. | + + + + + + + | Performing | Address | City/State/Zipcode | Phone Number | | Organization | | | | + + + + + | [facility] | [address] | [place], [place] | | | CARDIOLOGY | [address] | [address] | | + + + + + LIT SRUTHI-B WILEY ZHANG (12/20/2012 10:02 AM PDT) + + | Specimen | + + | Blood - Blood | + + + + + + + | Performing | Address | City/State/Zipcode | Phone Number | | Organization | | | | + + + + + | [facility] - | [address] | [place] [address] | | | IMMUNOGENETICS/TRANS | [address] [...] [facility] - | [address] | [place] [address] | | | IMMUNOGENETICS/TRANS | [address] [...] - | [address] | [place], [place] | | | IMMUNOGENETICS/TRANS | [address] [...] - | [address] | [place], [place] | | | IMMUNOGENETICS/TRANS | [address] [...] + + | [facility] - | [address] | [place] [address] | | | IMMUNOGENETICS/TRANS | [address] [...] [facility] - | [address] | [place] [address] | | | IMMUNOGENETICS/TRANS | [address] [...] [facility] | | | , SERUM | [facility],[address] | | REG UNIV | | | | [place], [facility],[place] | | PTH - INTFC | | | | [address] | | | | | | [phone]. | | | | | | Faisal mantilla, | | | | | | , Jenny. Director | | | | + + + + + + + + | Specimen | + + | Blood - Blood | + + + + + + + | Performing | Address | City/State/Zipcode | Phone Number | | Organization | | | | + + + + + | [facility] | [address] | [place], [place] | | | UNIV PTH - INTFC | | [address] | | + + + + + [...] | + + + + + | [facility] | [address] | [place] [address] | | | HOMERO LAN | LONG [...] | + + + + + | [facility] | [address] | [place] [address] | | | SERVICES, CORE | LONG [...] + | [facility] - | [address] | [place] [address] | | | [place] | | | [...] [facility] | [address] | [place] [address] | | | SERVICES, CORE | PARK [...] | + + + + + | [facility] | [address] | [place] [address] | | | SERVICES, CORE | LONG [...] | + + + + + | [facility] | [address] | [place] [address] | | | SERVICES, CORE | LONG [...] + | [facility] - | [address] | [place] [address] | | | [place] | | | | + + + [...] at: | | | | | | http://www.cdc.gov/nchstp/tb/pubs/tbfactssheets/593664.htm | | | Test performed by: [facility] [address] | | [address] [place] [place] [address] | | + + + + + [...] | + + + + + | [facility] | [address] | [place] [address] | | | SERVICES, SPECIAL | LONG [...] | PROTHROMBIN | No Mutation | | [facility] | | | GENE | | | [...] gene at | DIAGNOSTIC | | nucleotide [address]79[address]. Please note that this assay only detects the | LABORATORIES | | [id number] point mutation and therefore a normal result [...] has been analyzed for the presence of S26307A | | | mutation in the prothrombin [...] | | Heterozygotes for the common prothrombin T64621Z mutation constitute | | | approximately 2% of the normal white population (1,2). | | | References: 1.) Edwinat et al. Blood 88, 9498-8731 (1996). 2.) Ricardo | | | et al. Circulation 99, 999-1004 (1998). 3.) Al Montalvo, and | | | Chase. Amer J Clin Path 155, 439-47 (2000). This test was | | | developed and its performance characteristics determined by the [facility] | | | [facility]. It has | | | not been cleared or approved by the Food and Drug Administration. | | | FDA approval is not required for clinical use of this test, and | | | therefore validation was done as required under the requirements of | | | the Clinical Laboratory Improvement Act of 1988. The [facility] | Diagnostic [facility] is a fully | | | licensed and/or accredited clinical laboratory under CLIA, CAP, and | | | the [facility]. Please note that our lab now [...] + + | Performing | Address | City/State/[facility] Cent[facility]ode | Phone Number | | Organization | | | | + + + + + | [facility] | [address] | [place] [address] | | | DIAGNOSTIC | [address] [...] | + + + + + | [facility] | [address] | [place] [address] | | | SERVICES, CORE | PARK [...] | + + + + + | [facility] | [address] | [place] [address] | | | SERVICES, CORE | PARK [...] [facility] | [address] | [place] [address] | | | SERVICES, HOMERO | LONG [...] | + + + + + | [facility] | [address] | [place] [address] | | | HOMERO LAN | LONG [...] | | | | | | [place] [address] | | | | | | [phone]. | | | | | | Faisal [...] [facility] | [address] | [place], [place] | | | UNIV PTH - INTFC | | [address] | | + + + + + [...] | + + + + + | [facility] | [address] | [place] [address] | | | SERVICES, SPECIAL | PARK [...] + + + + | [facility] | [address] [address] [facility] [address] | [place] [address] | | | DIAGNOSTIC | [address] [...] + | [facility] - | [address] | [place] [address] | | | [place] | | | [...] + | [facility] - | [address] | [place] [address] | | | [place] | | | [...] + | [facility] - | [address] | [place] [address] | | | [place] | | | [...] + | [facility] - | [address] | [place] [address] | | | [facility] | | | | + + [...] less......Not | | | | | | Asgepfxu21.0-21.9 | | | | | | U/mL.........Indetermina [...] available | | | | | | [email or web address] | | | | | | vdx.Performed by [facility] | | | | | | [facility],[address] | | | | | | [place], [place] [address] | | | | | | [phone]. | | | | | | Faisal [...] [facility] | [address] | [place], [place] | | | UNIV PTH - INTFC | | [address] | | + + + + + [...] + | [facility] - | [address] | [place] [address] | | | [place] | | | | + + + [...] | + + + + + | [facility] | [address] | [place] [address] | | | SERVICES, CORE | PARK [...] by | | | | | | [facility],[address] | | | | | | [place], [facility],[place] | | | | | | [address] | | | | | | [phone] Effect. | | | | | | Faisal [...] [facility] | [address] | [place], [place] | | | UNIV PTH - INTFC | | [address] | | + + + + + [...] [facility] | [address] | [place] [address] | | | SERVICES, CORE | PARK [...] + +---------+ + + + | ELIJAH D CMNT | No Hemo | | [...] [facility] | [address] | [place] [address] | | | SERVICES, CORE | PARK [...] [facility] | [address] | [place] [address] | | | HOMERO LAN | LONG [...]
--- OUTSIDE RECORDS SUMMARY | ~2019-03-08 | XMS | Encounter Summary ---
Demographics + + + | Address | [address] | | | [place] [address] | + + + | Home Phone [...] | Author | [facility] | | | and Josephana | + + + | Organization | [facility] [...] Team Providers + +------+ + | Care Biomass Power Plant Manager Name | Role | Phone | [...] | | KIDNEY TRANSPLANT | [address] [place], | | | | | [address] [place] | [place] [address] | | | | | [address] [place], [place] | [phone] | | | | | [address] | | | | | | [phone] | | | +--------+ + + + [...] DAV[place] | | | | | | [place] [address] | | | | | | [phone] | | | | | | | | +--------+---------+ + + + documented as of this encounter Visit Diagnoses Not on filedocumented in this encounter"
--- OUTSIDE RECORDS SUMMARY | ~2019-03-08 | XMS | Encounter Summary ---
Demographics + + + | Address | [address] | | | [place] [address] | + + + | Home Phone [...] | | | | | [place] [address] | | + + + + + | Thania Mallory | ECON | [address] | | | | | [place] [address] | | + + + + + | Deidra Weldon | ECON | [address] | | | | | [place] | | | | | [address] | | + + + + + Care Team Providers + +------+ + | Care Electrician Crane Maintenance Name | Role | Phone | [...] Behavioral Health | | | | | [address] [place], | [place], [place] | | | | | [place] [address] | [address] | | | | | [phone] | | | +--------+ + + + [...] Denise | | | | | | [place] | | | | | | [address] | | | | | | [phone] | | | | | | | | +--------+ + + + + documented as of this encounter Visit Diagnoses Not on filedocumented in this encounter"
--- OUTSIDE RECORDS SUMMARY | ~2019-03-08 | XMS | Encounter Summary ---
Demographics + + + | Address | [address] | | | [place] [address] | + + + | Home Phone [...] | [facility] | | | and Josephana | + + + | Organization | [facility] | | [...] Team Providers + +------+ + | Care Canvas Shrinker Name | Role | Phone | + [...] + + | 12/17/ | Telephone | [facility] | [place], | Appointment | | 2019 | | CENTER CASE | Irish Obrien CMA | (Appointment with | | | | MANAGEMENT [address] | | PCP needed) | | | | [address] | | | | | | [place], [place] | | | | | | [address] | | | | | | [phone] | | | +--------+ + + + [...] | | | | | | [place] [address] | | | | | | [phone] | | | | | | | | +--------+---------+ + + + documented as of this encounter Visit Diagnoses Not on filedocumented in this encounter"
--- OUTSIDE RECORDS SUMMARY | ~2019-03-08 | XMS | Encounter Summary ---
Demographics + + + | Address | [address] | | | [place] [address] | + + + | Home Phone [...] | Author | [facility] | | | and Josephana | + + + | Organization | [facility] [...] Providers + +------+ + | Care Financial Secretary Name | Role | Phone | + +------+ + PCP | Unavailable | + +------+ + Encounter Details +--------+ + + + + | Date | Type | Department | Care Team | Description | +--------+ + + + + | 08/12/ | Hospital | [facility] | Conversion | ESRD (end stage | | 2016 | Encounter | CENTER CV INTRA OP | Transaction, | renal disease) | | | | [address] | Provider Unknown | ([facility]); ESRD on | | | | [place], [place] | | hemodialysis ([facility]) | | | | [address] | (Fax) | | | | | [phone] | Doyle Diaz MD | | +--------+ [...] 08/13/151114 Date of Service: 08/13/151114 Status: Signed Cartridge Belt Puncher: Taylor Acuna RN (Registered Nurse) Pt discharged [...] [place] | | | | | | [place] [address] | | | | | | [phone] | | | | | | | [...] ANGIOPLASTY AV FISTULA VENOUS | | | AUTO STRIPER: Doyle Diaz MD CONSENT: The risks, benefits [...] guidewire combination, a 4 | | | Bhutanese angled catheter was advanced and positioned into [...] a | | | guidewire, a 6 Bhutanese sheath was advanced and positioned into the [...] a | | | guidewire, a 7 Bhutanese sheath was advanced and positioned into the [...] IR ANGIOPLASTY | | AV FISTULA VENOUS AUTO STRIPER: Doyle Diaz MD CONSENT: The risks, benefits [...] catheter guidewire combination, a | | 4 Bhutanese angled catheter was advanced and positioned into [...] | | ANGIOPLASTY:Over a guidewire, a 6 Bhutanese sheath was advanced and positioned into the [...] Over | | a guidewire, a 7 Bhutanese sheath was advanced and positioned into the [...] ANGIOPLASTY AV FISTULA VENOUS | | | AUTO STRIPER: Doyle Diaz MD CONSENT: The risks, benefits [...] guidewire combination, a 4 | | | Bhutanese angled catheter was advanced and positioned into [...] a | | | guidewire, a 6 Bhutanese sheath was advanced and positioned into the [...] a | | | guidewire, a 7 Bhutanese sheath was advanced and positioned into the [...] IR ANGIOPLASTY | | AV FISTULA VENOUS AUTO STRIPER: Doyle Diaz MD CONSENT: The risks, benefits [...] catheter guidewire combination, a | | 4 Bhutanese angled catheter was advanced and positioned into [...] | | ANGIOPLASTY:Over a guidewire, a 6 Bhutanese sheath was advanced and positioned into the [...] Over | | a guidewire, a 7 Bhutanese sheath was advanced and positioned into the [...] [place];[address] | | | | | | [facility];[place], [place] | | | | | | [address] | | | | + + + [...]
--- OUTSIDE RECORDS SUMMARY | ~2019-03-08 | XMS | Encounter Summary ---
Demographics + + + | Address | [address] | | | [place] [address] | + + + | Home Phone [...] | [facility] | | | and [place] | + + + | Organization | [facility] | [...] Providers + +------+ + | Care Cigarette Packing Machine Operator Name | Role | Phone [...] stage renal | [address] | [address] [place] [address] | | | | | disease) | Shun Griffin | [place] G[place] | | | | | ([facility]) | [address] | [address] | | | | | Anemia in | [place], [place] | [place] | | | | | ESRD | [address] | [address] Phone: | | | | | (end-stage | Phone: | [phone] | | | | | renal | [phone] | Fax: | | | | | disease) | Fax: | [phone] | | | | | ([facility]) | [phone] | | | | | | Procedures [...] [address] | renal disease) ([facility]) | | | | [address] | [place], [address] | (Primary Dx) | | | | [place], [place] | [place], [place] | | | | | [address] | [address] | | | | | [phone] | | | +--------+ + + + [...] [address] | | | | | | [place] [address] | | | | | | [phone] | | | | | | | | +--------+---------+ + + + documented as of this encounter Visit Diagnoses + + | Diagnosis | + + | ESRD (end stage renal disease) (HCC) - Primary End stage renal disease | + + documented in this encounter"
--- OUTSIDE RECORDS SUMMARY | ~2019-03-08 | XMS | Encounter Summary ---
Demographics + + + | Address | [address] | | | [place] [address] | + + + | Home Phone [...] | | | | | [place] [address] | | + + + + + | Thania Mallory | ECON | [address] | | | | | [place] [address] | | + + + + + | Deidra Weldon | ECON | [address] | | | | | [place] | | | | | [address] | | + + + + + Care Team Providers + +------+ + | Care Examination Supervisor Name | Role | Phone | [...] | | | | [address] [place] | [facility] | | | | | [facility], | [place], [place] | | | | | [place] [address] | [address] | | | | | [phone] | | | +--------+ + + + [...] | | | | | | [place] | | | | | | [address] | | | | | | [phone] | | | | | | | | +--------+ + + + + documented as of this encounter Visit Diagnoses Not on filedocumented in this encounter"
--- OUTSIDE RECORDS SUMMARY | ~2019-03-08 | XMS | Encounter Summary ---
Demographics + + + | Address | [address] | | | [place] [address] | + + + | Home Phone [...] | Author | [facility] | | | and [place] | + + + | Organization | [facility] [...] Team Providers + +------+ + | Care Crusher Dry Ground Mica Name | Role | Phone | + +------+ + PCP | Unavailable | + +------+ + Encounter Details +--------+ + + + + | Date | Type | Department | Care Team | Description | +--------+ + + + + | 03/07/ | Hospital | [facility] | Rik Simon MD | Complication of AV | | 2015 | Encounter | [facility] | [address] | dialysis fistula, | | | | [address]PER[address] | [place], [place] | initial encounter | | | | [address] | [address] | ([facility]) | | | | [place], [place] | [phone] | | | | | [address] | | | | | | [phone] | | | +--------+ + + + [...] [address] | | | | | | [place] [address] | | | | | | [phone] | | | | | | | [...] preparation was performed | | | by [facility], [address], | | | [place] [address] (Test Driver: Daniel Larson M.D.; | | | [facility]#: [id number]). Diagnostician: Anahy Da Silva MD Pathologist | [...] LAB | | | | Blvd;[place] [address] | | | | + + + + + + | Antibody | NEGATIVE | | EXTERNAL | | | Screen | | | LAB | | + + + + + + | Antibody | Testing performed at | | EXTERNAL | | | Screen | [facility] | | LAB | | | | [address];[place] [address] | | | | + + + + + + | BB BAND | [id number] | | EXTERNAL | | | | | | LAB | | + + + + + + | BB BAND | Testing performed at | | EXTERNAL | | | | [facility] | | LAB | | | | [address]vd;[place] [address] | | | | + + + [...] | | | | | ONLY, -COMPUTER ([id number]), | | | | | | metropolitan editor ROBERT BOOKER (8) | | | | | | on 03/07/2014 6:28:09 PM | | | | + + + + + + + + | Specimen | + + | | + + + + + | Narrative | Performed At | + + + | Historically converted procedure from [facility] environment | EXTERNAL LAB | | Lul Elizabeth MD 03/08/2014 2:32 AM [facility] | | | [place] Department of Emergency Medicine 4:10 PM History [...] | | | a half ago in [place]. She is still using a right subclavian [...] | | Provider folic acid-vitamin b complex-vitamin h-ocxnjjpj-hqby | | | (DIALYVITE) 3 MG TABS [...] Negative for chest pain, | | | qdwmuibbl-hq-qqcnso, or cough GI: Negative for abdominal pain, [...] Date/Time Complete Metabolic | | | Panel [[id number]] (Abnormal) Collected: 03/07/141624 Order | | | [...] LT 20 YEARS. | | | PTT [[id number]] Collected: 03/07/141624 Order Status: | | | Completed Updated: 03/07/141704 Specimen Information: | | | Blood APTT 29 23 - 32 seconds CBC w Auto Diff [[id number]] | | | (Abnormal) Collected: 03/07/14 1625 [...] | Rik Simon MD In [address] [place] [address] | | | [phone] Discharge Medications: Discharge Medication | | | [...] | | | Patient | performed at [facility] | | LAB | | | | [address];[place] | | | | | | [address] | | | | + + + [...] EXTERNAL | | | | performed at [facility];[address] | | LAB | | | | [address];[place] | | | | | | [address] | | | | + + + + + + | RED CELL | 3.70Comment: Testing | 3.70 - 5.10 | EXTERNAL | | | COUNT | performed at [facility];[address] | M/uL | LAB | | | | [address];[place] | | | | | | [address] | | | | + + + + + + | Hgb | 12.9Comment: Testing | 11.3 - 15.5 | EXTERNAL | | | | performed at [facility];888 | g/dL | LAB | | | | [address];[place] | | | | | | [address] | | | | + + + + + + | Hematocrit, | 38.9Comment: Testing | 34.0 - 46.0 % | EXTERNAL | | | POC | performed at [facility];[address] | | LAB | | | | [address];[place] | | | | | | [address] | | | | + + + + + + | MCV | 105.2 (H)Comment: | 80.0 - 100.0 fl | EXTERNAL | | | | Testing performed at | | LAB | | | | [facility];[address] | | | | | | [address];[place] [address] | | | | + + + + + + | MCH | 35.0 (H)Comment: Testing | 27.0 - 34.0 pg | EXTERNAL | | | | performed at [facility];[address] | | LAB | | | | [address];[place] | | | | | | [address] | | | | + + + + + + | MCHC | 33.3Comment: Testing | 32.0 - 35.5 | EXTERNAL | | | | performed at [facility];888 | g/dL | LAB | | | | [address];[place] | | | | | | [address] | | | | + + + + + + | RDW-CV | 51.6Comment: Testing | 37 - 53 fl | EXTERNAL | | | | performed at [facility];[address] | | LAB | | | | [address];[place] | | | | | | [address] | | | | + + + + + + | Platelet | 175Comment: Testing | 150 - 400 K/uL | EXTERNAL | | | Count | performed at [facility];[address] | | LAB | | | Plasma | [address];[place] | | | | | | [address] | | | | + + + + + + | MPV | 8.9Comment: Testing | fl | EXTERNAL | | | | performed at [facility];[address] | | LAB | | | | [address];[place] | | | | | | [address] | | | | + + + + + + | Differentia | AUTOMATEDComment: | | EXTERNAL | | | l Type | Testing performed at | | LAB | | | | [facility];[address] | | | | | | [address];[place] [address] | | | | + + + + + + | % Segmented | 71.7Comment: Testing | % | EXTERNAL | | | | performed at [facility];[address] | | LAB | | | Neutrophils | [address];[place] | | | | | | [address] | | | | + + + + + + | % | 19.5Comment: Testing | % | EXTERNAL | | | Lymphocytes | performed at [facility];[address] | | LAB | | | | [address];[place] | | | | | | [address] | | | | + + + + + + | % Monocytes | 6.7Comment: Testing | % | EXTERNAL | | | | performed at [facility];[address] | | LAB | | | | [address];[place] | | | | | | [address] | | | | + + + + + + | % | 1.6Comment: Testing | % | EXTERNAL | | | Eosinophils | performed at [facility];[address] | | LAB | | | | [address];[place] | | | | | | [address] | | | | + + + + + + | % Basophils | 0.5Comment: Testing | % | EXTERNAL | | | | performed at [facility];[address] | | LAB | | | | [address];[place] | | | | | | [address] | | | | + + + + + + | Absolute | 5.6Comment: Testing | 1.9 - 7.4 K/uL | EXTERNAL | | | Segmented | performed at [facility];[address] | | LAB | | | Neutrophils | [address];[place] | | | | | | [address] | | | | + + + + + + | Absolute | 1.5Comment: Testing | 1.0 - 3.9 K/uL | EXTERNAL | | | Lymphocytes | performed at [facility];[address] | | LAB | | | | [address];[place] | | | | | | [address] | | | | + + + + + + | Absolute | 0.5Comment: Testing | 0 - 0.8 K/uL | EXTERNAL | | | Monocytes | performed at [facility];[address] | | LAB | | | | [address];[place] | | | | | | [address] | | | | + + + + + + | Absolute | 0.1Comment: Testing | 0 - 0.5 K/uL | EXTERNAL | | | Eosinophils | performed at [facility];[address] | | LAB | | | | [address];[place] | | | | | | [address] | | | | + + + + + + | Absolute | 0.0Comment: Testing | 0 - 0.1 K/uL | EXTERNAL | | | Basophils | performed at [facility];[address] | | LAB | | | | [address];[place] | | | | | | [address] | | | | + + + [...] EXTERNAL | | | | performed at [facility];[address] | mmol/L | LAB | | | | [address];[place] | | | | | | [address] | | | | + + + + + + | K | 3.9Comment: Testing | 3.5 - 4.9 | EXTERNAL | | | | performed at [facility];[place] | mmol/L | LAB | | | | [address];[place] | | | | | | [address] | | | | + + + + + + | Cl | 103Comment: Testing | 99 - 109 mmol/L | EXTERNAL | | | | performed at [facility];[address] | | LAB | | | | [address];[place] | | | | | | [address] | | | | + + + + + + | CO2 | 26Comment: Testing | 23 - 32 mmol/L | EXTERNAL | | | | performed at [facility];[address] | | LAB | | | | [address];[place] | | | | | | [address] | | | | + + + + + + | Anion Gap | 12Comment: Testing | 5 - 20 mmol/L | EXTERNAL | | | | performed at [facility];[address] | | LAB | | | | [address];[place] | | | | | | [address] | | | | + + + + + + | Glucose, | 78Comment: Testing | 65 - 99 mg/dL | EXTERNAL | | | Fasting | performed at [facility];[address] | | LAB | | | | [address];[place] | | | | | | [address] | | | | + + + + + + | BUN | 12Comment: Testing | 8 - 25 mg/dL | EXTERNAL | | | | performed at [facility];[address] | | LAB | | | | [address];[place] | | | | | | [address] | | | | + + + + + + | Creatinine | 3.51 (H)Comment: Testing | 0.50 - 1.00 | EXTERNAL | | | | performed at [facility];[place] | mg/dL | LAB | | | | [address];[place] | | | | | | [address] | | | | + + + + + + | BUN/Creatin | 4Comment: Testing | | EXTERNAL | | | ine Ratio | performed at [facility];[address] | | LAB | | | | [address];[place] | | | | | | [address] | | | | + + + + + + | Calcium | 9.6Comment: Testing | 8.5 - 10.2 | EXTERNAL | | | | performed at [facility];[place] | mg/dL | LAB | | | | [address];[place] | | | | | | [address] | | | | + + + + + + | Protein, | 8.1Comment: Testing | 6.3 - 8.2 g/dL | EXTERNAL | | | Total | performed at [facility];[address] | | LAB | | | | [address];[place] | | | | | | [address] | | | | + + + + + + | Albumin | 3.7Comment: Testing | 3.6 - 5.0 g/dL | EXTERNAL | | | | performed at [facility];[address] | | LAB | | | | [address];[place] | | | | | | [address] | | | | + + + + + + | Globulin | 4.3Comment: Testing | 1.3 - 4.9 g/dL | EXTERNAL | | | | performed at [facility];[address] | | LAB | | | | [address];[place] | | | | | | [address] | | | | + + + + + + | A/G Ratio | 0.9 (L)Comment: Testing | 1.0 - 2.4 | EXTERNAL | | | | performed at [facility];[address] | | LAB | | | | [address];[place] | | | | | | [address] | | | | + + + + + + | Bilirubin | 0.4Comment: Testing | 0.1 - 1.5 mg/dL | EXTERNAL | | | Total | performed at [facility];[address] | | LAB | | | | [address];[place] | | | | | | [address] | | | | + + + + + + | ALP, | 121 (H)Comment: Testing | 35 - 115 U/L | EXTERNAL | | | External | performed at [facility];[address] | | LAB | | | | [address];[place] | | | | | | [address] | | | | + + + + + + | AST | 20Comment: Testing | 10 - 45 U/L | EXTERNAL | | | | performed at [facility];[address] | | LAB | | | | [address];[place] | | | | | | [address] | | | | + + + + + + | ALT | 38Comment: Testing | 10 - 65 U/L | EXTERNAL | | | | performed at [facility];[address] | | LAB | | | | [address];[place] | | | | | | [address] | | | | + + + + + + | Estimated | CALCULATION NOT | mL/min/1.73m2 | EXTERNAL | | | GFR | PERFORMED. RESULT NOT | | LAB | | | | VALID IF AGE LT 20 | | | | | | YEARS.Comment: Testing | | | | | | performed at [facility];[address] | | | | | | [facility];[place], [place] | | | | | | [address] | | | | + + + [...]
--- OUTSIDE RECORDS SUMMARY | ~2019-03-08 | XMS | Encounter Summary ---
Demographics + + + | Address | [address] | | | [place] [address] | + + + | Home Phone [...] Author | [facility] | | | and [place] | + + + | Organization | [facility] [...] Team Providers + +------+ + | Care Insulation Manager Name | Role | Phone | + +------+ + PCP | Unavailable | + +------+ + Encounter Details +--------+ + + + + | Date | Type | Department | Care Team | Description | +--------+ + + + + | 06/11/ | Hospital | [facility] | | | | 2008 - | Encounter | MED CTR OP REHAB | | | | | | [address] | | | | 07/03/ | | [place] [address] | | | | 2008 | | [phone] | | | +--------+ + + + [...] [address] | | | | | | [place] [address] | | | | | | [phone] | | | | | | | | +--------+---------+ + + + documented as of this encounter Visit Diagnoses Not on filedocumented in this encounter"
--- OUTSIDE RECORDS SUMMARY | ~2019-03-08 | XMS | Encounter Summary ---
Demographics + + + | Address | [address] | | | [place] [address] | + + + | Home Phone [...] | | | | | [place] [address] | | + + + + + | Thania Mallory | ECON | [address] | | | | | [place] [address] | | + + + + + | Deidra Weldon | ECON | [address] | | | | | [place] | | | | | [address] | | + + + + + Care Team Providers + +------+ + | Care Machine Operator Packaging Name | Role | Phone | + [...] | | | | [address] [place], | [place], [place] | | | | | [place] [address] | [address] | | | | | [phone] | [phone] | | | | | | | [...] | | | | | | [place], [place] | | | | | | [address] | | | | | | [phone] | | | | | | | | +--------+ + + + + documented as of this encounter Visit Diagnoses Not on filedocumented in this encounter"
--- OUTSIDE RECORDS SUMMARY | ~2019-03-08 | XMS | Encounter Summary ---
Demographics + + + | Address | [address] | | | [place] [address] | + + + | Home Phone [...] + | Author | [facility] | | | and [place] | + + + | Organization | [facility] | [...] Team Providers + +------+ + | Care Trials Manager Name | Role | Phone | [...] [address] [place] | [place] [address] | | | | | [address] [place] | [phone] | | | | | [address] | | | | | | [phone] | | | +--------+ + + + [...] | 2020 | Visit | | Deny Brgigs MD [address] | | | | | | [address] | | | | | | [place] [address] | | | | | | [phone] | | | | | | | | +--------+---------+ + + + documented as of this encounter Visit Diagnoses Not on filedocumented in this encounter"
--- OUTSIDE RECORDS SUMMARY | ~2019-03-08 | XMS | Encounter Summary ---
Demographics + + + | Address | [address] | | | [place] [address] | + + + | Home Phone [...] Author | [facility] | | | and [place] | + + + | Organization | [facility] | | | [...] Providers + +------+ + | Care Medical Imaging Technician Name | Role | Phone | [...] | | stage renal | [address] | [address] [place] [address] | | | | | disease) | Shun Griffin | [place] | | | | | ([facility]) | [address] | [address] | | | | | Anemia in | [place], [place] | [place] | | | | | ESRD | [address] | [address] Phone: | | | | | (end-stage | Phone: | [phone] | | | | | renal | [phone] | Fax: | | | | | disease) | Fax: | [phone] | | | | | ([facility]) | [phone] | | | | | | Procedures [...] DO [address] | renal disease) ([facility]) | | | | [address] | [place], [address] | (Primary Dx) | | | | [place], [place] | [place], [place] | | | | | [address] | [address] | | | | | [phone] | | | +--------+ + + + [...] week from records in [facility], per [facility] Nurse Elisabeth Portillo RN. Her BP, PO4, and PTH are consisently high. 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 Has been counseled in [facility] regarding risks of calciphylaxis. 4. 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 5. Will recheck her in 2 weeks. : [place] Fina Alonso MD, PhD documented in thi [...] [address] | | | | | | [place] [address] | | | | | | [phone] | | | | | | | | +--------+---------+ + + + documented as of this encounter Visit Diagnoses + + | Diagnosis | + + | ESRD (end stage renal disease) (HCC) - Primary End stage renal disease | + + documented in this encounter"
--- OUTSIDE RECORDS SUMMARY | ~2019-03-08 | XMS | Encounter Summary ---
Demographics + + + | Address | [address] | | | [place] [address] | + + + | Home Phone [...] | | | | | [place] [address] | | + + + + + | Thania Mallory | ECON | [address] | | | | | [place] [address] | | + + + + + | Deidra Weldon | ECON | [address] | | | | | [place] | | | | | [address] | | + + + + + Care Team Providers + +------+ + | Care Electrical Appliance Repairer Name | Role | Phone [...] ) | | | | [address] | [facility] | | | | | [facility], | [place], [place] | | | | | [place] [address] | [address] | | | | | [phone] | | | +--------+ + + + [...] [place] | | | | | | [address] | | | | | | [phone] | | | | | | | | +--------+ + + + + documented as of this encounter Visit Diagnoses Not on filedocumented in this encounter"
--- OUTSIDE RECORDS SUMMARY | ~2019-03-08 | XMS | Encounter Summary ---
Demographics + + + | Address | [address] | | | [place] [address] | + + + | Home Phone [...] | | | | | [place] [address] | | + + + + + | Thania Mallory | ECON | [address] | | | | | [place] [address] | | + + + + + | Deidra Weldon | ECON | [address] | | | | | [place] | | | | | [address] | | + + + + + Care Team Providers + +------+ + | Care Arch Support Technician Name | Role | Phone | [...] lab/Provider | | | | [address] [place], | [place], [place] | updated) | | | | [place] [address] | [address] | | | | | [phone] | [phone] | | | | | | | [...] Denise | | | | | | [place], [place] | | | | | | [address] | | | | | | [phone] | | | | | | | | +--------+ + + + + documented as of this encounter Visit Diagnoses Not on filedocumented in this encounter"
--- OUTSIDE RECORDS SUMMARY | ~2019-03-08 | XMS | Encounter Summary ---
Demographics + + + | Address | [address] | | | [place] [address] | + + + | Home Phone [...] | | | | | [place] [address] | | + + + + + | Thania Mallory | ECON | [address] | | | | | [place] [address] | | + + + + + | Deidra Weldon | ECON | [address] | | | | | [place] | | | | | [address] | | + + + + + [...] Evaluation | | | | [address] [place], | [place], [place] | (pre-listing | | | | [place] [address] | [address] | pediatric [place] [address] | | | | [phone] | | update) | +--------+ + + [...] Denise | | | | | | [place] | | | | | | [address] | | | | | | [phone] | | | | | | | | +--------+ + + + + documented as of this encounter Visit Diagnoses Not on filedocumented in this encounter"
--- OUTSIDE RECORDS SUMMARY | ~2019-03-08 | XMS | Encounter Summary ---
Demographics + + + | Address | [address] | | | [place] [address] | + + + | Home Phone [...] [facility] | | | and [place] | + + + | Organization | [facility] | | | [...] Providers + +------+ + | Care Test Boring Crew Chief Name | Role | Phone | [...] + + | 11/15/ | Telephone | [facility] | George Torres RN | Lab Results | | 2019 | | [address] | | (Cytology report) | | | | [place] | | | | | | [address] | | | | | | [phone] | | | +--------+ + + + [...] | | | | | [place] [address] | | | | | | [phone] | | | | | | | | +--------+---------+ + + + documented as of this encounter Visit Diagnoses Not on filedocumented in this encounter"
--- OUTSIDE RECORDS SUMMARY | ~2019-03-08 | XMS | Encounter Summary ---
Demographics + + + | Address | [address] | | | [place] [address] | + + + | Home Phone [...] | Author | [facility] | | | and Josephana | + + + | Organization | [facility] [...] Providers + +------+ + | Care Digital Media Associate Name | Role | Phone | + +------+ + PCP | Unavailable | + +------+ + Encounter Details +--------+ + + + + | Date | Type | Department | Care Team | Description | +--------+ + + + + | 07/09/ | Hospital | [facility] | Colten Hutchins MD | AV fistula | | 2017 | Encounter | [facility] | [address] | thrombosis, initial | | | | CLINICAL DECISION | [place] | encounter ([facility]) | | | | [address] | [address] | | | | | [place], [place] | | | | | | [address] | | | | | | [phone] | | | +--------+ + + + [...] 07/09/161821 Date of Service: 07/09/161820 Status: Signed Multiple Drill Operator: Catherine Lenz, RN (Registered Nurse) Patient stable [...] [place] | | | | | | [place] [address] | | | | | | [phone] | | | | | | | [...] At | + + + | Successful pentecostalism of flow within the left brachiocephalic | [...] | The microaccesses were exchanged to 6 Lithuanian sheaths. Patient was | | | heparinized. [...] | | stent. Intraprocedural fistulogram was demonstrated pentecostalism of | | | flow but severe [...] access. The microaccesses were exchanged to 6 Lithuanian sheaths. Patient was | | heparinized. Via [...] stent. Intraprocedural fistulogram was | | demonstrated pentecostalism of flow but severe recurrent in-stent restenosis [...] central veins are widely patent. IMPRESSION: Successful pentecostalism of flow within the | | left [...] At | + + + | Successful pentecostalism of flow within the left brachiocephalic | [...] | The microaccesses were exchanged to 6 Lithuanian sheaths. Patient was | | | heparinized. [...] | | stent. Intraprocedural fistulogram was demonstrated pentecostalism of | | | flow but severe [...] access. The microaccesses were exchanged to 6 Lithuanian sheaths. Patient was | | heparinized. Via [...] stent. Intraprocedural fistulogram was | | demonstrated pentecostalism of flow but severe recurrent in-stent restenosis [...] central veins are widely patent. IMPRESSION: Successful pentecostalism of flow within the | | left [...] | | | Patient | performed at [facility];[address] | | LAB | | | | [facility];[place], [place] | | | | | | [address] | | | | + + + [...] | | | | performed at [facility];[address] | | | | | | [address];[place], [place] | | | | | | [address] | | | | + + + [...] | | | Estimate | performed at [facility] | | LAB | | [...] | | | | | | at [facility];[address] | | | | | | [address];[place] [address] | | | | + + + [...]
--- OUTSIDE RECORDS SUMMARY | ~2019-03-08 | XMS | Encounter Summary ---
Demographics + + + | Address | [address] | | | [place] [address] | + + + | Home Phone [...] | | | | | [place] [address] | | + + + + + | Thania Mallory | ECON | [address] | | | | | [place] [address] | | + + + + + | Deidra Weldon | ECON | [address] | | | | | [place] | | | | | [address] | | + + + + + Care Team Providers + +------+ + | Care Director Of District Office Name | Role | Phone | + [...] [facility]) | Caro Chan | [place], | | | | | Allergic | [place], [place] | [place] | | | | | purpura | [address] | [address] | | | | | ([facility]) | Phone: | Phone: | | | | | | [phone] | [phone] | | | | | | Fax: | Fax: | | | | | | [phone] | [phone] | +--------+--------+ + + + + Encounter Details +--------+---------+ + + + | Date | Type | Department | Care Team | Description | +--------+---------+ + + + | 12/19/ | Office | Kidney Transplant | Clinic, [address]tx [address] | Patient on | | 2012 | Visit | at Physician's | [facility] | peritoneal dialysis | | | | [address] [place], [place] | (HCC) (Primary Dx); | | | | [address] | [address] | Unspecified | | | | Mailcode: L590 | | essential | | | | [facility] | | hypertension; 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 El Starr MD lead software test engineer, Division of Abdominal Organ Transplantation Professor of Urology CC: Sudhakar Joy MD [address] [place] [address] documented in this encoun ter Plan of Treatment +--------+ + + + + | Date | Type | Specialty | Care Team | Description | +--------+ + + + + | 05/04/ | Hospital | Adult Acute Care | El Starr MD | | | 2022 | Encounter | | [address] | | | | | | [place], [place] | | | | | | [address] | | | | | | [phone] | | | | | | | [...]
--- OUTSIDE RECORDS SUMMARY | ~2019-03-08 | XMS | Encounter Summary ---
Demographics + + + | Address | [address] | | | [place] [address] | + + + | Home Phone [...] Author | [facility] | | | and Josephana | + + + | Organization | [facility] | [...] Providers + +------+ + | Care Process Improvement Manager Name | Role | Phone | [...] + + | 11/13/ | Telephone | [facility] | Silvia Rabago | DME (OXYGEN) | | 2019 | | [address] | | | | | [place] | | | | | | [address] | | | | | | [phone] | | | +--------+ + + + [...] | | | | | | [facility] [address] | | | | | | [phone] | | | | | | | | +--------+---------+ + + + documented as of this encounter Visit Diagnoses Not on filedocumented in this encounter"
--- OUTSIDE RECORDS SUMMARY | ~2019-03-08 | XMS | Encounter Summary ---
Demographics + + + | Address | [address] | | | [place] [address] | + + + | Home Phone [...] | Author | [facility] | | | and Josephana | + + + | Organization | [facility] | [...] Team Providers + +------+ + | Care Stockbroker Name | Role | Phone | + +------+ + | Tien Nicholson MD | PCP | | + +------+ + Encounter Details +--------+ + + + + | Date | Type | Department | Care Team | Description | +--------+ + + + + | 08/20/ | Hospital | [facility] | Ramón Dunn | Non-cardiogenic | | 2019 - | Encounter | [facility] | MD Juan Alberto [address] | pulmonary edema | | | | CARE FLOOR [address] [place], [place] | | | 08/23/ | | [address] | [address] | | | 2019 | | [place], [place] | | | | | | [address] | | | | | | [phone] | | | +--------+ + + + [...] 1300 Date of Service: 08/23/18818 Status: Signed Reed Fixer: Paty Kline DO (Physician) Patient: Dara Weldon [...] presented to the emergency d epartment of [facility] in [place] on 08/21 for dyspnea and underwent right t horacentesis with removal of 2.5L of fluid. Patient was sent home after the procedure. Muriel rtly thereafter patient became very short of breath and started having pinkish frothy sputum . Patient also developed right-sided chest pain over area of thoracentesis. She returned t o emergency department of [facility]. Patient was tachycardic and short of b reath but was saturating well on room air. Chest x-ray showed pulmonary edema of right bridgette g but left lung was reportedly normal. Patient was transferred to [facility] for acute hypoxic respiratory failure [...] Nicholson MD [address] [place] [id number] Medication List CHANGE how you take these [...] 08/23/181305 Date of Service: 08/23/181305 Status: Signed Reed Fixer: Mitzy Schilling RN (Registered Nurse) Pt A&Ox4, [...] Date of Service: 08/23/18 1144 Status: Signed Reed Fixer: Patria Norman RN (Registered Nurse) CM placed call to Pts PCP and they will contact pt to schedule follow up appointment as gopal n as possible. CM placed call to [facility] Pulmonology to attempt to move [...] 08/23/187 Date of Service: 08/23/181136 Status: Signed Reed Fixer: Mitzy Schilling RN (Registered Nurse) Resumed care from ABRIL Carranza. Agree with assessments thus far. Will continue to monitor. Mitzy Schilling RN onver arturo Transaction, Provider Unknown - 08/23/2018 2:34 AM PDT Nurse Progress Note by Hannah Madrigal RN at 08/23/184 Author: Hannah Madrigal RN Service: (none) Author Type: Registered Nurse Filed: 08/23/18 0530 Date of Service: 08/23/18233 Status: Signed Reed Fixer: Hannah Madrigal RN (Registered Nurse) VSS, pt [...] 08/22/181827 Date of Service: 08/22/181823 Status: Signed Reed Fixer: Paco Macedo RN (Registered Nurse) Patient is [...] 08/22/181808 Date of Service: 08/22/181800 Status: Signed Reed Fixer: Brent Greenberg () daycare assistant appreciated. Pt sitting up in bed. Pt [...] find a grief support group in [place] where she lives. Chp affirmed this as an excellent idea. Chp assured pt of continuing g ood thoughts for pt. Pt thanked p for visit. Chaplain Brent Greenberg pPaty samson DO - 08/22/2018 2:55 PM PDT Progress Notes by Paty Kline DO at 08/22/18 3644 Author: Paty Kline DO Service: Hospitalist Author Type: Physician Filed: 08/22/18 1148 Date of Service: 08/22/18 2831 Status: Addendum Reed Fixer: Paty Kline DO (Physician) Related Notes: Original Note by Paty Kline DO (Physician) filed at 08/22/[address] [facility] Service: Hospitalist Progress Note Hospital [...] May 2018 presented to emergency department of [facility] in [place] this morning and underwent right thoracentesis. Patient was sent home after the procedure. However patient became very short of breath and started havi ng pinkish frothy sputum. Patient also developed right-sided chest pain over area of thorac entesis. Hence she returned to emergency department of [facility]. Patient w as tachycardic and short of breath but was saturating well on room air. Chest x-ray showed pulmonary edema of right lung but left lung was normal as per ED physician." Patient was transferred to [facility] for monitoring as she will [...] 08/22/18932 Date of Service: 08/22/18928 Status: Signed Reed Fixer: Jessica Martell RN (Registered Nurse) 08/22/18922 Discharge Planning Evaluation Admitting Diagnosis Non-cardiogenic pulmonary edema Readmission No Living Arrangements Alone Support Systems Friends/neighbors;Family members Type of Residence Private residence House type Apartment Bathrooms on 1st Floor 1-Full Independent with ADL's Yes Independent with Mobility Yes Home Care Services No Caregiver after Discharge No Mental Status Oriented Prior functional status independent Power of Chemist Food No Anticipated Discharge Plan Post Acute Care Needs None at this time Plan communicated to patient/family Yes Resources Financial concerns Comment (needs met but uses food bank and family/neighbors assist) Transportation issues No (friends assist w/transport to HD and appointments) Patient/Family concerns No Prescription Plan Yes Name of Pharmacy [facility] - [place], [place] Previous home health equipment No Vascular [...] concerns and states she uses hemodialysis at [facility] on Mon, Wed, Fri but denies [...] 08/22/18435 Date of Service: 08/22/18433 Status: Signed Reed Fixer: Jaymie Tafoya RN (Registered Nurse) Pt currently [...] 08/21/181831 Date of Service: 08/21/181828 Status: Signed Reed Fixer: Luz Pablo RN (Registered Nurse) Complains of rib/upper abdomen pain. Medicated, pain improved. Ambulating in room. HD today , 2.7L off. HD in a.m. At 0600. End of shift review complete. Paty Godinez DO - 08/21/2018 7:24 AM PDT Progress Notes by Paty Kline DO at 08/21/18 0724 Author: Paty Kline DO Service: Hospitalist Author Type: Physician Filed: 08/21/18 4932 Date of Service: 08/21/18723 Status: Signed Reed Fixer: Paty Kline DO (Physician) [facility] Service: Hospitalist Progress Note Hospital [...] May 2018 presented to emergency department of [facility] in [place] this morning and underwent right thoracentesis. Patient was sent home after the procedure. However patient became very short of breath and started havi ng pinkish frothy sputum. Patient also developed right-sided chest pain over area of thorac entesis. Hence she returned to emergency department of [facility]. Patient w as tachycardic and short of breath but was saturating well on room air. Chest x-ray showed pulmonary edema of right lung but left lung was normal as per ED physician." Patient was transferred to [facility] for monitoring as she will [...] Note by Anahy Springer RN at 08/21/18 6482 Author: Anahy Springer RN Service: (none) Author Type: Registered Nurse Filed: 08/21/18 3939 Date of Service: 08/21/18 5076 Status: Addendum Reed Fixer: Anahy Springer RN (Registered Nurse) Related Notes: Original Note by Anahy Springer RN (Registered Nurse) filed at 08/21/18 7862 VSS. Pt c/o pain x2, pt medicated [...] 08/20/181901 Date of Service: 08/20/181901 Status: Signed Reed Fixer: Kacy Moody RPH (Pharmacist) Clinical Pharmacy Note: Renal Monitoring Serum creatinine: 8.68 mg/dL (H) 08/20/181742 Estimated creatinine clearance: 9.9 mL/min (A) Pharmacy dosing for renal function per Dr. Dunn Currently there are no medications needing to be adjusted. Pharmacy will continue to monito r for changes in medication orders and in renal function and adjust accordingly. Kacy Modoy Pharmacist 08/20/2018 7:02 PM docume nted in [...] [address] | | | | | | [place] [address] | | | | | | [phone] | | | | | | | [...] [place];[address] | | | | | | [facility];[place], [place] | | | | | | [address] | | | | + + + [...] | | | | performed at [facility], [address] | | | | | | [facility], | | | | | | [place] [address] | | | | | |MACRO | | | | | |Testing performed at [facility], [facility] [place] [address] | | | | | | | [...] | | | | performed at [facility], [address] | | LAB | | | | [address], | | | | | | [place] [address] | | | | + + + [...] | | | | performed at [facility], [address] | | LAB | | | | [address], | | | | | | [place] [address] | | | | + + + [...] | | | | performed at [facility], [address] | | | | | | [address], | | | | | | [place] [address] | | | | + + + [...] EXTERNAL | | | | performed at [facility] | | LAB | | | | [address];[place], [place] | | | | | | [address] | | | | + + + [...] at [facility];[address] | | | | | | [facility];[place], [place] | | | | | | [address] | | | | + + + [...]
--- OUTSIDE RECORDS SUMMARY | ~2019-03-08 | XMS | Encounter Summary ---
Demographics + + + | Address | [address] | | | [place] [address] | + + + | Home Phone [...] | [facility] | | | and [place]ana | + + + | Organization | [facility] | [...] Providers + +------+ + | Care Business Asst Name | Role | Phone | [...] NEPHROLOGY [address] | M, DO [address] | | | | | [address] | [address] | | | | | [place], [place] | [place], [place] | | | | | [address] | [address] | | | | | [phone] | | | +--------+ + + + [...] [address] | | | | | | [place] [address] | | | | | | [phone] | | | | | | | | +--------+---------+ + + + documented as of this encounter Visit Diagnoses Not on filedocumented in this encounter"
--- OUTSIDE RECORDS SUMMARY | ~2019-03-08 | XMS | Encounter Summary ---
Demographics + + + | Address | [address] | | | [place] [address] | + + + | Home Phone [...] | | | | | [place] [address] | | + + + + + | Thania Mallory | ECON | [address] | | | | | [place] [address] | | + + + + + | Deidra Weldon | ECON | [address] | | | | | [place] | | | | | [address] | | + + + + + Care Team Providers + +------+ + | Care Heel Edge Inker Machine Name | Role | Phone | + +------+ + PCP | Unavailable | + +------+ + Reason for Visit + + + | Reason | Comments | + + + | Transplant Form | ammonia worker 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 | | Update | [...] dates | | | | [address] [place], | [place], [place] | updated) | | | | [place] [address] | [address] | | | | | [phone] | [phone] | | | | | | | [...] Denise | | | | | | [place], [place] | | | | | | [address] | | | | | | [phone] | | | | | | | | +--------+ + + + + documented as of this encounter Visit Diagnoses Not on filedocumented in this encounter"
--- OUTSIDE RECORDS SUMMARY | ~2019-03-08 | XMS | Encounter Summary ---
Demographics + + + | Address | [address] | | | [place] [address] | + + + | Home Phone [...] Author | [facility] | | | and Josephana | + + + | Organization | [facility] | | | [...] Team Providers + +------+ + | Care Boxing Trainer Name | Role | Phone | [...] | | | | [address] | [place], [place] | [place], [place] | | | | | stage renal | [address] | [address] Phone: | | | | | disease | Phone: | [phone] | | | | | ([facility]) | [phone] | Fax: | | | | | Infection | Fax: | [phone] | | | | | and | [phone] | | | | | | inflammatory [...] | | [address] | [place] | (Primary Dx); | | | | [place], [place] | [place], [place] | Anemia in ESRD | | | | [address] | [address] | (end-stage renal | | | | [phone] | | disease) ([facility]) | +--------+ + [...] that she is working very closely with [facility] for 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 [...] excellent candidate from her visits here at [facility]. 6. Anemia--Will need to hold the EPO until the Hb is < 11.0 g/dl, while rechecking the Hb weekly. Plan: 1. Will continue to follow her PTH quarterly without Hectorol Rx. 2. Hold the EPO as above, until the Hb is < 11.0 g/dl. 3. Will try to connect with her Transplant Teacher Advisor at [facility], about re lative timeline of her allograft date. 4. She will follow with Dr. Ibarra in 2 weeks. CC: [place] Fina Joy MD, Renal Transplant Clinic, [facility] documented in thi s encounter Plan [...] [address] | | | | | | [place] [address] | | | | | | [phone] | | | | | | | [...]
--- OUTSIDE RECORDS SUMMARY | ~2019-03-08 | XMS | Encounter Summary ---
Demographics + + + | Address | [address] | | | [place] [address] | + + + | Home Phone [...] [facility] | | | and [place]ana | + + + | Organization | [facility] | | [...] Providers + +------+ + | Care Timber Supervisor Name | Role | Phone | [...] NEPHROLOGY [address] | MD [address] | | | | | [address] | [address] [place] | | | | | [place], [place] | [place] [address] | | | | | [address] | [phone] | | | | | [phone] | | | +--------+ + + + [...] [address] | | | | | | [place] [address] | | | | | | [phone] | | | | | | | | +--------+---------+ + + + documented as of this encounter Visit Diagnoses Not on filedocumented in this encounter"
--- OUTSIDE RECORDS SUMMARY | ~2019-03-08 | XMS | Encounter Summary ---
Demographics + + + | Address | [address] | | | [place] [address] | + + + | Home Phone [...] Author | [facility] | | | and [place]ana | + + + | Organization | [facility] | | | [...] Providers + +------+ + | Care Filler Wiper Name | Role | Phone | [...] NEPHROLOGY [address] | M, DO [address] [place] | | | | | [address] | [place] | | | | | [place], [place] | [place], [place] | | | | | [address] | [address] | | | | | [phone] | | | +--------+ + + + [...] | | | | [place] [address] | | | | | | [phone] | | | | | | | | +--------+---------+ + + + documented as of this encounter Visit Diagnoses Not on filedocumented in this encounter"
--- OUTSIDE RECORDS SUMMARY | ~2019-03-08 | XMS | Encounter Summary ---
Demographics + + + | Address | [address] | | | [place] [address] | + + + | Home Phone [...] | Author | [facility] | | | and Josephana | + + + | Organization | [facility] | [...] | | stage renal | [address] | [address] [place] [address] | | | | | disease) | [address]un [address] | [address] | | | | | ([facility]) | [address] | [address] [place] | | | | | Anemia in | [place], [place] | [place] | | | | | ESRD | [address] | [address] Phone: | | | | | (end-stage | Phone: | [phone] | | | | | renal | [phone] | Fax: | | | | | disease) | Fax: | [phone] | | | | | ([facility]) | [phone] | | | | | | Procedures [...] | | [address] | [place], [address] | (Primary Dx) | | | | [place], [place] | [place], [place] | | | | | [address] | [address] | | | | | [phone] | | | +--------+ + + + [...] have offered her arrangements via the Renal COFFEE ATTENDANT to obtain some meaningful counseling, but she [...] Will recheck her in 2 weeks. : Hamilton Fina Joy M.D., Pediatric Nephrology, [facility] documented in t his encounter Plan [...] [address] | | | | | | [place] [address] | | | | | | [phone] | | | | | | | | +--------+---------+ + + + documented as of this encounter Visit Diagnoses + + | Diagnosis | + + | ESRD (end stage renal disease) (HCC) - Primary End stage renal disease | + + documented in this encounter"
--- OUTSIDE RECORDS SUMMARY | ~2019-03-08 | XMS | Encounter Summary ---
Demographics + + + | Address | [address] | | | [place] [address] | + + + | Home Phone [...] + | Author | [facility] | | | and [place] | + + + | Organization | [facility] | [...] Team Providers + +------+ + | Care Occupational Therapist Rehab Manager Name | Role | Phone [...] | | | | [address] | [place], [place] | [place], [place] | | | | | stage renal | [address] | [address] Phone: | | | | | disease | Phone: | [phone] | | | | | ([facility]) | [phone] | Fax: | | | | | Infection | Fax: | [phone] | | | | | and | [phone] | | | | | | inflammatory [...] | | [address] | [place], [address] | (Primary Dx); | | | | [place], [place] | [place], [place] | Anemia in ESRD | | | | [address] | [address] | (end-stage renal | | | | [phone] | | disease) ([facility]) | +--------+ + + + + [...] There fore she has had construction of chickahominy indian tribe radio cephalic fistula in her left [...] Chavarria's help with her permanent AVF. C: [place] Fina Joy MD, Renal Transplant Clinic, [facility] documented in thi s encounter [...] [address] | | | | | | [place] [address] | | | | | | [phone] | | | | | | | [...]
--- OUTSIDE RECORDS SUMMARY | ~2019-03-08 | XMS | Encounter Summary ---
Demographics + + + | Address | [address] | | | [place] [address] | + + + | Home Phone [...] | | | | | [place] [address] | | + + + + + | Thania Mallory | ECON | [address] | | | | | [place] [address] | | + + + + + | Deidra Weldon | ECON | [address] | | | | | [place] | | | | | [address] | | + + + + + Care Team Providers + +------+ + | Care Van Driver Name | Role | Phone | [...] | | | [address] | [place] [address] | | | | | [address] [address] [place], | [place], [place] | | | | | [place] [address] | [address] | | | | | [phone] | [phone] | | | | | | | [...] | | | | | | [place], [place] | | | | | | [address] | | | | | | [phone] | | | | | | | | +--------+ + + + + documented as of this encounter Visit Diagnoses Not on filedocumented in this encounter"
--- OUTSIDE RECORDS SUMMARY | ~2019-03-08 | XMS | Encounter Summary ---
Demographics + + + | Address | [address] | | | [place] [address] | + + + | Home Phone [...] | Author | [facility] | | | and Josephana | + + + | Organization | [facility] | | [...] Providers + +------+ + | Care Technical Writing Lead/Mgr Name | Role | Phone | + [...] NEPHROLOGY [address] | M, DO [address] | | | | | [address] | [place] | | | | | [place], [place] | [place], [place] | | | | | [address] | [address] | | | | | [phone] | | | +--------+ + + + [...] [place] | | | | | | [place] [address] | | | | | | [phone] | | | | | | | | +--------+---------+ + + + documented as of this encounter Visit Diagnoses Not on filedocumented in this encounter"
--- OUTSIDE RECORDS SUMMARY | ~2019-03-08 | XMS | Encounter Summary ---
Demographics + + + | Address | [address] | | | [place] [address] | + + + | Home Phone [...] Author | [facility] | | | and Josephana | + + + | Organization | [facility] | [...] Providers + +------+ + | Care Executive Director Of Marketing Name | Role | Phone | [...] NEPHROLOGY [address] | MD [address] | (Asymptomatic) | | | | [address] | [address] [place] | | | | | [place], [place] | [place] [address] | | | | | [address] | [phone] | | | | | [phone] | | | +--------+ + + + [...] 3:01 PM PDTHemodialysis progress note e-faxed to [facility] [place], Lianna Joy MD, [facility] Renal Transplant Clinic on 11/29/13.Electronical ly signed by Marilyn Palumbo at 11/29/2013 3:02 PM Daniela Marquez MD - 11/22/2013 11 :03 AM PDT Comprehensive Dialysis Monthly Note Date of visit: 11/22/2013 Dialysis Clinic: [facility] Mode of dialysis: Hemodialysis Dialysis prescription: MWF, [...] Access: R chest catheter. Re-referred to [facility] transplant in Oct 2013 by lawn specialist. Peritonitis, dialysis-associated (HCC) 07/29/2013 Note Last Updated: 07/29/2013 Due to MSSA. Had tunneled infection as well. PD catheter removed in July 2013. On Keflex till 08/01/13. History of Henoch-Schonlein purpura Note Last Updated: 07/29/2013 Diagnosed at age 10[address] Joy, lawn specialist. 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 -per [facility] transplant, AVF is not recommended at this [...] donor. Pt has been referred to [facility] in [place] [address] Joy. -followed up with [facility] Lianna Joy, [facility] Pediatric Nephrology [facility] Renal transplant documented in this encounter [...] [address]SON | | | | | | [place] [address] | | | | | | [phone] | | | | | | | [...]
--- OUTSIDE RECORDS SUMMARY | ~2019-03-08 | XMS | Encounter Summary ---
Demographics + + + | Address | [address] | | | [place] [address] | + + + | Home Phone [...] | | | | | [place] [address] | | + + + + + | Thania Mallory | ECON | [address] | | | | | [place] [address] | | + + + + + | Deidra Weldon | ECON | [address] | | | | | [place] | | | | | [address] | | + + + + + Care Team Providers + +------+ + | Care License Distributor Name | Role | Phone | [...] | purpura | [address] | [facility] [address] | | | | | ([facility] | [place] | [address] | | | | | ([place]ie | [address] | Mailcode: | | | | | nlein | [place], [place] | [place] | | | | | purpura) | [address] | [address] | | | | | nephritis | Phone: | [place], [place] | | | | | ([facility]) | [phone] | [address] | | | | | Hemodialysis | Fax: | Phone: | | | | | status | [phone] | [phone] | | | | | ([facility]) | | Fax: | | | | | Chronic | | [phone] | | | | | kidney | | | | | | | disease, | | | | | | | stage V | | | | | | | ([facility]) | | | | | | | [...] | | 2014 | Encounter | at [facility] [address] | | | | | | [address] Mailcode: | | | | | | [id number] | | | | | | [place], [place] | | | | | | [address] | | | | | | [phone] | | | +--------+ + + + [...] | | | | | | [place], [place] | | | | | | [address] | | | | | | [phone] | | | | | | | [...] | e | 1:18 PM | MEDICARE 1204 [facility] | procedure are in the | [...] 2:35 PM PST Echocardiography Laboratory | | [address] | | [place] [address] | | ; | | [id number] | | | | Transthoracic Echocardiogram Report | | | | | | NAME: DARA WELDON Study Date: 01/20/2015 1:18:29 PM | | Order #: [id number] ACC #: [id number] | | | | | | : [...] on 01/20/2015 at 2:35:17 PM | | Drapery Examiner: YARITZA KLINE RDEDNA | | | | | | cc: | | | | | | Modes utilized | | TTE [id number]; Spectral Doppler 89859; Color flow Doppler 96118; | | | | | | | | Final | + + + + + + + | Performing | Address | City/State/Zipcode | Phone Number | | Organization | | | | + + + + + | [facility]PT [facility] | [address] | [place], [place] | | | CARDIOLOGY | [address] | [address] | | + + + + + [...]
--- OUTSIDE RECORDS SUMMARY | ~2019-03-08 | XMS | Encounter Summary ---
Demographics + + + | Address | [address] | | | [place] [address] | + + + | Home Phone [...] | Author | [facility] | | | and Josephana | + + + | Organization | [facility] [...] Team Providers + +------+ + | Care Dip Guider Stoves Name | Role | Phone | + +------+ + PCP | Unavailable | + +------+ + Encounter Details +--------+ + + + + | Date | Type | Department | Care Team | Description | +--------+ + + + + | 04/08/ | Hospital | [facility] | Rik Simon MD | | | 2015 | Encounter | [facility] | [address] | | | | | [address] | [place], [place] | | | | | [place], [place] | [address] | | | | | [address] | [phone] | | | | | [phone] | | | +--------+ + + + [...] 142 Date of Service: 04/08/141425 Status: Signed Application Developer Manager: Coral Amador RPH (Pharmacist) Clinical Pharmacy Note - Renal Dose Adjustment Dara Weldon 19 y.o. female Ht Readings from Last 1 Encounters: 04/08/14 1.676 m (5' 6") (75 %*, Z = 0.69) * Growth percentiles are based on [facility] 2-20 Years data. Wt Readings from Last 1 Encounters: 04/08/14 96.2 kg (212 lb 1.3 oz) (98 %*, Z = 2.12) * Growth percentiles are based on [facility] 2-20 Years data. CREATININE Date Value Ref Range Status 04/08/2014 8.68* 0.50 - 1.00 mg/dL Final Testing performed at [facility];[address] [place] [address];[place] [address] ESRD on HD Pharmacy to renally adjust [...] Note by Cheryl Rubalcava RN at 04/08/14 7621 Author: Cheryl Rubalcava RN Service: (none) Author Type: Registered Nurse Filed: 04/08/14 1443 Date of Service: 04/08/141407 Status: Signed Application Developer Manager: Cheryl Rubalcava RN (Registered Nurse) Pt and [...] 132 Date of Service: 04/08/141320 Status: Signed Application Developer Manager: Cheryl Rubalcava RN (Registered Nurse) Pt family [...] [place] | | | | | | [place] [address] | | | | | | [phone] | | | | | | | [...] LAB | | | | Blvd;[place] [address] | | | | + + + + + + | Antibody | NEGATIVE | | EXTERNAL | | | Screen | | | LAB | | + + + + + + | Antibody | Testing performed at | | EXTERNAL | | | Screen | [facility];[address] | | LAB | | | | Blvd;[place] [address] | | | | + + + + + + | BB BAND | AFIL1941 | | EXTERNAL | | | | | | LAB | | + + + + + + | BB BAND | Testing performed at | | EXTERNAL | | | | [facility];[address] | | LAB | | | | Blvd;[place] [address] | | | | + + + [...] [place] | | | | | | [address] | | | | + + + + + + | K | 4.1Comment: SLT | 3.5 - 4.9 | EXTERNAL | | | | HEMOLYSISTesting | mmol/L | LAB | | | | performed at [facility];[address] | | | | | | [address];[place] | | | | | | [address] | | | | + + + + + + | Cl | 102Comment: Testing | 99 - 109 mmol/L | EXTERNAL | | | | performed at [facility];[address] | | LAB | | | | [address];[place] | | | | | | [address] | | | | + + + + + + | CO2 | 28Comment: Testing | 23 - 32 mmol/L | EXTERNAL | | | | performed at [facility];[address] | | LAB | | | | [address];[place] | | | | | | [address] | | | | + + + + + + | Anion Gap | 13Comment: Testing | 5 - 20 mmol/L | EXTERNAL | | | | performed at [facility];[address] | | LAB | | | | [address];[place] | | | | | | [address] | | | | + + + + + + | Glucose, | 87Comment: Testing | 65 - 99 mg/dL | EXTERNAL | | | Fasting | performed at [facility];[address] | | LAB | | | | [address];[place] | | | | | | [address] | | | | + + + + + + | BUN | 32 (H)Comment: Testing | 8 - 25 mg/dL | EXTERNAL | | | | performed at [facility];[address] | | LAB | | | | [address];[place] | | | | | | [address] | | | | + + + + + + | Creatinine | 8.68 (H)Comment: Testing | 0.50 - 1.00 | EXTERNAL | | | | performed at [facility];[address] | mg/dL | LAB | | | | [address];[place] | | | | | | [address] | | | | + + + + + + | BUN/Creatin | 4Comment: Testing | | EXTERNAL | | | ine Ratio | performed at [facility];[address] | | LAB | | | | [address];[place] | | | | | | [address] | | | | + + + + + + | Calcium | 8.8Comment: NOTE NEW | 8.5 - 10.5 | EXTERNAL | | | | REFERENCE RANGETesting | mg/dL | LAB | | | | performed at [facility];[address] | | | | | | [address];[place] | | | | | | [address] [...] at [facility];[address] | | | | | | [address];[place], [place] | | | | | | [address] | | | | + + + [...]
--- OUTSIDE RECORDS SUMMARY | ~2019-03-08 | XMS | Encounter Summary ---
Demographics + + + | Address | [address] | | | [place] [address] | + + + | Home Phone [...] | | | | | [place] [address] | | + + + + + | Thania Mallory | ECON | [address] | | | | | [place] [address] | | + + + + + | Deidra Weldon | ECON | [address] | | | | | [place] | | | | | [address] | | + + + + + Care Team Providers + +------+ + | Care Research Instructor Name | Role | Phone | [...] | | | | [address] | [place], [place] | | | | | | [place] | [address] | | | | | | [place] | Phone: | | | | | | [address] | [phone] | | | | | | Phone: | | | | | | | [phone] | | | | | | | Fax: | | | | | | | [phone] | | +--------+--------+ + + + + Encounter Details +--------+---------+ + + + | Date | Type | Department | Care Team | Description | +--------+---------+ + + + | 11/16/ | Office | Specialty Clinics | Sudhakar Joy | Allergic purpura- | | 2015 | Visit | at [facility] [address] | D, MD [address] [facility] [address] | MEDICARE 2727 | | | | [place] Mailcode: | [address] | (Primary Dx); [facility] | | | | [facility] [address] | [place], [place] | (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 Have your friend call Brittney about [phone] Sudhakar Joy MD documented in this encounter [...] Pediatric Nephrology and Hypertension Services [address] Mail code [facility] [place], [place] [id number] documented in this encounter Plan of Treatment +--------+ + + + + | Date | Type | Specialty | Care Team | Description | +--------+ + + + + | 05/04/ | Hospital | Adult Acute Care | El Starr MD | | | 2022 | Encounter | | [address] | | | | | | [place], [place] | | | | | | [address] | | | | | | [phone] | | | | | | | [...]
--- OUTSIDE RECORDS SUMMARY | ~2019-03-08 | XMS | Encounter Summary ---
Demographics + + + | Address | [address] | | | [place] [address] | + + + | Home Phone [...] Author | [facility] | | | and Josephana | + + + | Organization | [facility] | | [...] Providers + +------+ + | Care Purchasing Manager/Sales Name | Role | Phone | + [...] + + | 11/13/ | Telephone | [facility] | Silvia Rabago | DME (OXYGEN) | | 2019 | | [address] | | | | | [place] | | | | | | [address] | | | | | | [phone] | | | +--------+ + + + [...] [place] | | | | | | [facility] [address] | | | | | | [phone] | | | | | | | | +--------+---------+ + + + documented as of this encounter Visit Diagnoses Not on filedocumented in this encounter"
--- OUTSIDE RECORDS SUMMARY | ~2019-03-08 | XMS | Encounter Summary ---
Demographics + + + | Address | [address] | | | [place] [address] | + + + | Home Phone [...] | Author | [facility] | | | and Josephana | + + + | Organization | [facility] | | [...] Team Providers + +------+ + | Care Flaker Tender Name | Role | Phone | [...] | stage renal | [address] | [address] [place] [address] | | | | | disease) | [address] | [address] | | | | | ([facility]) | [address] | [address] [place] | | | | | Anemia in | [place], [place] | [place] | | | | | ESRD | [address] | [address] Phone: | | | | | (end-stage | Phone: | [phone] | | | | | renal | [phone] | Fax: | | | | | disease) | Fax: | [phone] | | | | | ([facility]) | [phone] | | | | | | Procedures [...] | | [address] | [place], [address] | (Primary Dx) | | | | [place], [place] | [place], [place] | | | | | [address] | [address] | | | | | [phone] | | | +--------+ + + + [...] Will recheck her in 2 weeks. : [place] Fina Joy M.D., Pediatric Nephrology, [facility] documented in th is encounter [...] [place] | | | | | | [place] [address] | | | | | | [phone] | | | | | | | | +--------+---------+ + + + documented as of this encounter Visit Diagnoses + + | Diagnosis | + + | ESRD (end stage renal disease) (HCC) - Primary End stage renal disease | + + documented in this encounter"
--- OUTSIDE RECORDS SUMMARY | ~2019-03-08 | XMS | Encounter Summary ---
Demographics + + + | Address | [address] | | | [place] [address] | + + + | Home Phone [...] Author | [facility] | | | and Josephana | + + + | Organization | [facility] | [...] + +------+ + | Care Director Of Operations Name | Role | Phone | [...] NEPHROLOGY [address] | MD [address] | | | | | [address] | [address] [place] | | | | | [place], [place] | [place] [address] | | | | | [address] | [phone] | | | | | [phone] | | | +--------+ + + + [...] [place] | | | | | | [place] [address] | | | | | | [phone] | | | | | | | | +--------+---------+ + + + documented as of this encounter Visit Diagnoses Not on filedocumented in this encounter"
--- OUTSIDE RECORDS SUMMARY | ~2019-03-08 | XMS | Encounter Summary ---
Demographics + + + | Address | [address] | | | [place] [address] | + + + | Home Phone [...] | | | | | [place] [address] | | + + + + + | Thania Mallory | ECON | [address] | | | | | [place] [address] | | + + + + + | Deidra Weldon | ECON | [address] | | | | | [place] | | | | | [address] | | + + + + + Care Team Providers + +------+ + | Care Salad Bar Clerk Name | Role | Phone | [...] 2005 | [address] | [address] | [phone] | | | | [address] | [address] Mailcode: [id number] | | | | | | [place], [place] | | | | | | [address] | | | | | | [phone] | | | +--------+ + + + [...] [address] | | | | | | [place], [place] | | | | | | [address] | | | | | | [phone] | | | | | | | [...] | [facility] | | | PATHOLOGY | [facility] | | DEPARTMENT | | [...] Garcia | | | | | | [facility], | | | | | | [place],labeled little shell tribe | | | | | | kidney [...] number | | | | | | [id number].[facility]/lab | | | | | [...] wall | | | | | | fxqcuxjmX2d: | | | | | | NegativeFibrinogen: [...] + + + + + | [facility] | [address] | [place] [address] | | | PATHOLOGY | [place] | | | + + + + + | [facility] | [address] | [place] [address] | | | PATHOLOGY | [address] | | | + + + + + documented in this encounter Visit Diagnoses Not on filedocumented in this encounter"
--- OUTSIDE RECORDS SUMMARY | ~2019-03-08 | XMS | Encounter Summary ---
Demographics + + + | Address | [address] | | | [place] [address] | + + + | Home Phone [...] | | | | | [place] [address] | | + + + + + | Thania Mallory | ECON | [address] | | | | | [place] [address] | | + + + + + | Deidra Weldon | ECON | [address] | | | | | [place] | | | | | [address] | | + + + + + Care Team Providers + +------+ + | Care Legislative Director Name | Role | Phone | [...] | | | Hospital | [facility] | | | | | | [address] | [address] | | | | | | [address] | [place], [place] | | | | | | [place] | [address] | | | | | | [place] | Phone: | | | | | | [address] | [phone] | | | | | | Phone: | | | | | | | [phone] | | | | | | | Fax: | | | | | | | [phone] | | +--------+--------+ + + + + Encounter Details +--------+---------+ + + + | Date | Type | Department | Care Team | Description | +--------+---------+ + + + | 05/24/ | Office | Specialty Clinics | Sudhakar Joy | [facility] | | 2017 | Visit | at [facility] [address] | MD Emanuel [address] | (David | | | | [address] Mailcode: | [address] | purpura) nephritis | | | | [facility] ernbadriana | [place], [place] | (Primary Dx); Anemia | | | | [place], [place] | [address] | of chronic kidney | | | | [address] | [phone] | failure, stage 5 | | | | [phone] | | (HCC) | +--------+---------+ + + [...] not be referred for transplant. Her adult psychology department chair could refer her to adult transplant when [...] [facility] Mail code [facility] [place], [place] [address] documented in this encounter Plan of Treatment +--------+ + + + + | Date | Type | Specialty | Care Team | Description | +--------+ + + + + | 05/04/ | [facility] | Adult Acute Care | El Starr MD | | | 2022 | Encounter | | [address] | | | | | | [place], [place] | | | | | | [address] | | | | | | [phone] | | | | | | | [...]
--- OUTSIDE RECORDS SUMMARY | ~2019-03-08 | XMS | Encounter Summary ---
Demographics + + + | Address | [address] | | | [place] [address] | + + + | Home Phone [...] | | | | | [place] [address] | | + + + + + | Deidra Weldon | ECON | [address] | | | | | [place] | | | | | [address] | | + + + + + Care Team Providers + +------+ + | Care X Ray Service Engineer Name | Role | Phone | + +------+ + | Shahid Camargo MD | PCP | | + +------+ + Encounter Details +--------+ + + + + | Date | Type | Department | Care Team | Description | +--------+ + + + + | 12/20/ | Hospital | Radiology at [facility] | | | | 2012 | Encounter | [address] [facility] | | | | | | Mailcode: [address] | | | | | | [address] | | | | | | [place], [place] | | | | | | [address] | | | | | | [phone] | | | +--------+ + + + [...] [address] | | | | | | [place], [place] | | | | | | [address] | | | | | | [phone] | | | | | | | [...] | e | 9:29 AM | MEDICARE 8098 | procedure are in the | | [...]
--- OUTSIDE RECORDS SUMMARY | ~2019-03-08 | XMS | Encounter Summary ---
Demographics + + + | Address | [address] | | | [place] [address] | + + + | Home Phone [...] | [facility] | | | and [place]ana | + + + | Organization | [facility] [...] Team Providers + +------+ + | Care Narrow Fabric Calenderer Name | Role | Phone | + [...] | stage renal | [address] | [address] [place] [address] | | | | | disease) | [address] | [address] | | | | | ([facility]) | [address] | [address] [place] | | | | | Anemia in | [place], [place] | [place] | | | | | ESRD | [address] | [address] Phone: | | | | | (end-stage | Phone: | [phone] | | | | | renal | [phone] | Fax: | | | | | disease) | Fax: | [phone] | | | | | ([facility]) | [phone] | | | | | | Procedures [...] | | [address] | [place], [address] | (Primary Dx) | | | | [place], [place] | [place], [place] | | | | | [address] | [address] | | | | | [phone] | | | +--------+ + + + [...] have offered her arrangements via the Renal L D RN to obtain some meaningful counseling, but she [...] Will recheck her in 2 weeks. : [place] Fina Joy M.D., Pediatric Nephrology, [facility] documented in t his encounter Plan [...] [address] | | | | | | [place] [address] | | | | | | [phone] | | | | | | | | +--------+---------+ + + + documented as of this encounter Visit Diagnoses + + | Diagnosis | + + | ESRD (end stage renal disease) (HCC) - Primary End stage renal disease | + + documented in this encounter"
--- OUTSIDE RECORDS SUMMARY | ~2019-03-08 | XMS | Encounter Summary ---
Demographics + + + | Address | [address] | | | [place] [address] | + + + | Home Phone [...] | Author | [facility] | | | and [place]ana | + + + | Organization | [facility] [...] Providers + +------+ + | Care Export Administrator Name | Role | Phone | [...] + + | 02/21/ | Telephone | [facility] | Blake Chavarria | Procedure (Question) | | 2013 | | SURGERY [address] | MD Antonieta, FACS [address] | | | | | [address] [place], [place] | [address] [facility] | | | | | [address] | [place] [address] | | | | | [phone] | [phone] | | | | | | | [...] [place] | | | | | | [place] [address] | | | | | | [phone] | | | | | | | | +--------+---------+ + + + documented as of this encounter Visit Diagnoses Not on filedocumented in this encounter"
--- OUTSIDE RECORDS SUMMARY | ~2019-03-08 | XMS | Encounter Summary ---
Demographics + + + | Address | [address] | | | [place] [address] | + + + | Home Phone [...] | | | | | [place] [address] | | + + + + + | Thania Mallory | ECON | [address] | | | | | [place] [address] | | + + + + + | Deidra Weldon | ECON | [address] | | | | | [place] | | | | | [address] | | + + + + + Care Team Providers + +------+ + | Care Pickling Solution Maker Name | Role | Phone | [...] | | | | [address] [place] | [facility] | | | | | [facility], | [place], [place] | | | | | [place] [address] | [address] | | | | | [phone] | | | +--------+ + + + [...] [place] | | | | | | [address] | | | | | | [phone] | | | | | | | | +--------+ + + + + documented as of this encounter Visit Diagnoses Not on filedocumented in this encounter"
--- OUTSIDE RECORDS SUMMARY | ~2019-03-08 | XMS | Encounter Summary ---
Demographics + + + | Address | [address] | | | [place] [address] | + + + | Home Phone [...] | | | | | [place] [address] | | + + + + + | Thania Mallory | ECON | [address] | | | | | [place] [address] | | + + + + + | Deidra Weldon | ECON | [address] | | | | | [place] | | | | | [address] | | + + + + + Care Team Providers + +------+ + | Care Research Asst Name | Role | Phone | + +------+ + | Shahid Camargo MD | PCP | | + +------+ + Encounter Details +--------+ + + + + | Date | Type | Department | Care Team | Description | +--------+ + + + + | 12/19/ | Document-Sc | UNKNOWN DEPARTMENT | Unknown . | | | 2012 | anned | [address] | | | | | | [facility] | | | | | | [place], [place] | | | | | | [address] | | | +--------+ + + + [...] Denise | | | | | | [place], [place] | | | | | | [address] | | | | | | [phone] | | | | | | | | +--------+ + + + + documented as of this encounter Visit Diagnoses Not on filedocumented in this encounter"
--- OUTSIDE RECORDS SUMMARY | ~2019-03-08 | XMS | Encounter Summary ---
Demographics + + + | Address | [address] | | | [place] [address] | + + + | Home Phone [...] Author | [facility] | | | and Josephana | + + + | Organization | [facility] | [...] Providers + +------+ + | Care Oil Refinery Operator Name | Role | Phone | [...] NEPHROLOGY [address] | M, DO [address] | | | | | [address] | [place], [address] | | | | | [place], [place] | [place], [place] | | | | | [address] | [address] | | | | | [phone] | | | +--------+ + + + [...] PM PDTManually faxed demographic sheet, copy of ugichem cards, progress note from 04/28/14 and 02/24/14 [...] | | | | | [place] [address] | | | | | | [phone] | | | | | | | | +--------+---------+ + + + documented as of this encounter Visit Diagnoses Not on filedocumented in this encounter"
--- OUTSIDE RECORDS SUMMARY | ~2019-03-08 | XMS | Encounter Summary ---
Demographics + + + | Address | [address] | | | [place] [address] | + + + | Home Phone [...] Author | [facility] | | | and Josephana | + + + | Organization | [facility] [...] Providers + +------+ + | Care Egg And Spice Mixer Name | Role | Phone | [...] | | | | 21) End | [place], [place] | [place], [place] | | | | | stage renal | [address] | [address] Phone: | | | | | disease | Phone: | [phone] | | | | | (FORMERLY [facility]) | [phone] | Fax: | | | | | Infection | Fax: | [phone] | | | | | and | [phone] | | | | | | inflammatory [...] | | [address] | [place], [address] | (Primary Dx); | | | | [place], [place] | [place], [place] | Anemia in ESRD | | | | [address] | [address] | (end-stage renal | | | | [phone] | | disease) (FORMERLY [facility]) | +--------+ + [...] CC: Jamil Joy MD, [facility] [...] [place] | | | | | | [place] [address] | | | | | | [phone] | | | | | | | [...]
--- OUTSIDE RECORDS SUMMARY | ~2019-03-08 | XMS | Encounter Summary ---
Demographics + + + | Address | [address] | | | [place] [address] | + + + | Home Phone [...] Author | [facility] | | | and Josephana | + + + | Organization | [facility] | [...] Providers + +------+ + | Care Hide Inspector And Sorter Name | Role | Phone | [...] RN | | | | | [address] [facility] [address] | | | | | | [place] | | | | | | [address] | | | | | | [phone] | | | +--------+ + + + [...] [place] | | | | | | [place] [address] | | | | | | [phone] | | | | | | | | +--------+---------+ + + + documented as of this encounter Visit Diagnoses Not on filedocumented in this encounter"
--- OUTSIDE RECORDS SUMMARY | ~2019-03-08 | XMS | Clinical Summary ---
Demographics + + + | Address | [address] | | | [place] [address] | + + + | Home Phone [...] | | | | | [place] [address] | | + + + + + | Thania Mallory | ECON | [address] | | | | | [place] [address] | | + + + + + | Deidra Weldon | ECON | [address] | | | | | [place], [place] | | | | | [address] | | + + + + + Care Team Providers + +------+ + | Care Pharm Tech Name | Role | Phone | + +------+ + | Jonathan Alonso MD | PCP | | + +------+ + Source Comments [facility] is fully live on both EpicCare Ambulatory and EpicCare InPatient.[facility] + + + + + + [...] | | | | | | [place], [place] | | | | | | [address] | | | | | | [phone] | | | | | | | [...] | | | | | | | [address] | | + +--------+ +--------+ + +--------+ | AUTOMATIC LINE SET UP MECHANIC MEDICAID | AUTOMATIC LINE SET UP MECHANIC | [id number] | Effect | | [...] | RENAL | | for | | ar[place], | | | | RECIPI | | all | | [place] [address] | | | | ENT | | [...] | | al/Fam | | 1995 | [phone] | 3 [place] | | | kamron | | | 2 (Home) | [address] | | | | | [phone] | | | | | | | 0 (Work) | | + +--------+ +--------+ + + | CORY ALVES | Wanderbhavin | Mother | [birth year] | [address] | | | l | | [address] | [phone] | 3 [place] | | | Gamal | | | 2 (Home) | [address] | | | g | | | | | + +--------+ +--------+ + +
--- OUTSIDE RECORDS SUMMARY | ~2019-03-08 | XMS | Encounter Summary ---
Demographics + + + | Address | [address] | | | [place] [address] | + + + | Home Phone [...] | | | | | [place] [address] | | + + + + + | Thania Mallory | ECON | [address] | | | | | [place] [address] | | + + + + + | Deidra Weldon | ECON | [address] | | | | | [place] | | | | | [address] | | + + + + + [...] updated) | | | | [address] [place], | [place], [place] | | | | | [place] [address] | [address] | | | | | [phone] | [phone] | | | | | | | [...] Denise | | | | | | [place] | | | | | | [address] | | | | | | [phone] | | | | | | | | +--------+ + + + + documented as of this encounter Visit Diagnoses Not on filedocumented in this encounter"
--- OUTSIDE RECORDS SUMMARY | ~2019-03-08 | XMS | Encounter Summary ---
Demographics + + + | Address | [address] | | | [place] [address] | + + + | Home Phone [...] | | | | | [place] [address] | | + + + + + | Thania Mallory | ECON | [address] | | | | | [place] [address] | | + + + + + | Deidra Weldon | ECON | [address] | | | | | [place] | | | | | [address] | | + + + + + Care Team Providers + +------+ + | Care Dispensing Optician Name | Role | Phone | + [...] | | | | | [address] [place], | [place], [place] | | | | | [place] [address] | [address] | | | | | [phone] | | | +--------+ + + + [...] Denise | | | | | | [place] | | | | | | [address] | | | | | | [phone] | | | | | | | | +--------+ + + + + documented as of this encounter Visit Diagnoses Not on filedocumented in this encounter"
--- OUTSIDE RECORDS SUMMARY | ~2019-03-08 | XMS | Encounter Summary ---
Demographics + + + | Address | [address] | | | [place] [address] | + + + | Home Phone [...] | | | | | [place] [address] | | + + + + + | Thania Mallory | ECON | [address] | | | | | [place] [address] | | + + + + + | Deidra Weldon | ECON | [address] | | | | | [place] | | | | | [address] | | + + + + + Care Team Providers + +------+ + | Care City Superintendent Of Schools Name | Role | Phone | [...] | | | | [address] [place] | [facility] | | | | | [place], | [place], [place] | | | | | [place] [address] | [address] | | | | | [phone] | | | +--------+ + + + [...] Denise | | | | | | [place] | | | | | | [address] | | | | | | [phone] | | | | | | | | +--------+ + + + + documented as of this encounter Visit Diagnoses Not on filedocumented in this encounter"
--- OUTSIDE RECORDS SUMMARY | ~2019-03-08 | XMS | Encounter Summary ---
Demographics + + + | Address | [address] | | | [place] [address] | + + + | Home Phone [...] | | | | | [place] [address] | | + + + + + | Thania Mallory | ECON | [address] | | | | | [place] [address] | | + + + + + | Deidra Weldon | ECON | [address] | | | | | [place] | | | | | [address] | | + + + + + Care Team Providers + +------+ + | Care Project Archivist Name | Role | Phone | + [...] | | | [address] | [facility] | | | | | [place], | [place], [place] | | | | | [place] [address] | [address] | | | | | [phone] | | | +--------+ + + + [...] Denise | | | | | | [place] | | | | | | [address] | | | | | | [phone] | | | | | | | | +--------+ + + + + documented as of this encounter Visit Diagnoses Not on filedocumented in this encounter"
--- OUTSIDE RECORDS SUMMARY | ~2019-03-08 | XMS | Encounter Summary ---
Demographics + + + | Address | [address] | | | [place] [address] | + + + | Home Phone [...] | | | | | [place] [address] | | + + + + + | Thania Mallory | ECON | [address] | | | | | [place] [address] | | + + + + + | Deidra Weldon | ECON | [address] | | | | | [place] | | | | | [address] | | + + + + + [...] | Family sheet) | | | | [address] | [place] | | | | | Loop Mailcode: | [place], [place] | | | | | [address] | [address] | | | | | [address] | [phone] | | | | | [place], [place] | | | | | | [address] | | | | | | [phone] | | | +--------+ + + + [...] Denise | | | | | | [place] | | | | | | [address] | | | | | | [phone] | | | | | | | | +--------+ + + + + documented as of this encounter Visit Diagnoses Not on filedocumented in this encounter"
--- OUTSIDE RECORDS SUMMARY | ~2019-03-08 | XMS | Encounter Summary ---
Demographics + + + | Address | [address] | | | [place] [address] | + + + | Home Phone [...] | | | | | [place] [address] | | + + + + + | Thania Mallory | ECON | [address] | | | | | [place] [address] | | + + + + + | Deidra Weldon | ECON | [address] | | | | | [place] | | | | | [address] | | + + + + + Care Team Providers + +------+ + | Care Gameplay Programmer Name | Role | Phone | [...] | | | | | [address] [place] [place], | [place], [place] | | | | | [place] [address] | [address] | | | | | [phone] | | | +--------+ + + + [...] Denise | | | | | | [place] | | | | | | [address] | | | | | | [phone] | | | | | | | | +--------+ + + + + documented as of this encounter Visit Diagnoses Not on filedocumented in this encounter"
--- OUTSIDE RECORDS SUMMARY | ~2019-03-08 | XMS | Encounter Summary ---
Demographics + + + | Address | [address] | | | [place] [address] | + + + | Home Phone [...] | | | | | [place] [address] | | + + + + + | Thania Mallory | ECON | [address] | | | | | [place] [address] | | + + + + + | Deidra Louise | ECON | [address] | | | | | [place] | | | | | [address] | | + + + + + Care Team Providers + +------+ + | Care Corporate Technical Recruiter Name | Role | Phone | [...] | | (HCC) [facility] | Eli[address] | [address] | | | | | (Amelie | [address] | Mailcode: | | | | | nlein | [place], [place] | [place] | | | | | purpura) | [address] | [place] | | | | | nephritis | Phone: | [place], [place] | | | | | (HCC) | [phone] | [address] | | | | | Hemodialysis | Fax: | Phone: | | | | | status | [phone] | [phone] | | | | | ([facility]LY [facility]) | | Fax: | | | | | Chronic | | [phone] | | | | | kidney | | | | | | | disease, | | | | | | | stage V | | | | | | | ([facility]LY [facility]) | | | | | [...] | | | [address] | [facility] | | | | | [facility], | [place], [place] | | | | | [place] [address] | [address] | | | | | [phone] | | | +--------+ + + + [...] Denise | | | | | | [place], [place] | | | | | | [address] | | | | | | [phone] | | | | | | | [...] ([facility]) | | + +------+--------+ + + [...] BSA | | | | | | (SARASOTA Z | | | | | | [...] Interface, Cardiology Results - 01/20/2015 2:35 PM [facility] Echocardiography Laboratory | | [address] | | [place] [address] | | ; | | [id number] | | | | Transthoracic Echocardiogram Report | | | | | | NAME: DARA LOUISE Study Date: 01/20/2015 1:18:29 PM | | Order #: [id number] ACC #: [id number] | | | | | | : [...] on 01/20/2015 at 2:35:17 PM | | Sales And Marketing Agent: YARITZA KLINE RD | | | | | | cc: | | | | | | Modes utilized | | TTE 62098; Spectral Doppler 91067; Color flow Doppler 74487; | | | | | | | | Final | + + + + + + + | Performing | Address | City/State/Zipcode | Phone Number | | Organization | | | | + + + + + | [facility] | [address] | [place], [place] | | | CARDIOLOGY | [address] | [address] | | + + + + + [...] [facility] | [address] | [place] [address] | | | SERVICES, SPECIAL | PARK [...] + | TILA | [address] | [place] [address] | | | DIAGNOSTIC | [address] [...] + | [place] [facility] - | [address] | [place] [address] | | | [place] | | | | + + + [...] + | [facility] [facility] - | [address] | [place] [address] | | | [place] | | | [...] + | [facility] - | [address] | [place] [address] | | | [place] | | | [...] + | [facility] - | [address] | [place] [address] | | | [place] | | | | + + + [...] | | | | | | The [address] | | | | | | [address]a [address], [facility] | | | | | | [address] | | | | | | [phone].[employer]. | | | | | | Faisal [...] [facility] | [address] | [place], [place] | | | UN[facility] - INTFC | | [address] | | + + + + + [...] | + + + + + | [place] [facility] - | [address] | [place] [address] | | | [place] | | | [...] | | | | | | The [address] | | | | | | [facility] | | | | | | [address] | | | | | | [phone].[employer]. | | | | | | Faisal [...] [facility] | [address] | [place], [place] | | | UN[facility] P[facility] - INTFC | | [address] | | + + + + + [...] [facility] | [address] | [place] [address] | | | SERVICES, CORE | PARK [...] [facility] | [address] | [place] [address] | | | SERVICES, CORE | PARK [...] [facility] | [address] | [place] [address] | | | SERVICES, CORE | PARK [...] | + + + + + | [facility] | [address] | [place] [address] | | | SERVICES, CORE | LONG [...] [facility] | [address] | [place] [address] | | | HOM[facility] [place] | LONG [...] | | | LABORATORY | | | ANGUILLAN | | | SERVICES, | | | [...] | + + + + + | [facility] | [address] | [place] [address] | | | SERVICES, CORE | LONG [...]
--- OUTSIDE RECORDS SUMMARY | ~2019-03-08 | XMS | Encounter Summary ---
Demographics + + + | Address | [address] | | | [place] [address] | + + + | Home Phone [...] | | | | | [place] [address] | | + + + + + | Thania Mallory | ECON | [address] | | | | | [place] [address] | | + + + + + | Deidra Weldon | ECON | [address] | | | | | [place] | | | | | [address] | | + + + + + Care Team Providers + +------+ + | Care Fleet Driver Name | Role | Phone | + +------+ + PCP | Unavailable | + +------+ + Encounter Details +--------+ + + + + | Date | Type | Department | Care Team | Description | +--------+ + + + + | 03/22/ | Abstract | Pediatric | Sudhakar Joy | | | 2013 | | Nephrology at | MD Emanuel [address] | | | | | [place] | [place] | | | | | [facility] | [place], [place] | | | | | [address] | [address] | | | | | Mailcode: DCH7 | [phone] | | | | | Alexander | | | | | | [place], [place] | | | | | | [address] | | | | | | [phone] | | | +--------+ + + + [...] | | | | | | [place], [place] | | | | | | [address] | | | | | | [phone] | | | | | | | [...] + + | [facility] - | [address] | [place] | [phone] | | [place] | | | | + + + + + documented in this encounter Visit Diagnoses Not on filedocumented in this encounter"
--- OUTSIDE RECORDS SUMMARY | ~2019-03-08 | XMS | Encounter Summary ---
Demographics + + + | Address | [address] | | | [place] [address] | + + + | Home Phone [...] Author | [facility] | | | and Josephana | + + + | Organization | [facility] | [...] Providers + +------+ + | Care Executive Legal Secretary Name | Role | Phone | [...] + + | 11/12/ | Telephone | [facility] | Silvia Rabago | DME (carlie, cmn, | | 2018 | | [address] | ABRIL Hernandez | [facility]) | | | | [place] | | | | | | [address] | | | | | | [phone] | | | +--------+ + + + [...] | | | | | [place] [address] | | | | | | [phone] | | | | | | | | +--------+---------+ + + + documented as of this encounter Visit Diagnoses Not on filedocumented in this encounter"
--- OUTSIDE RECORDS SUMMARY | ~2019-03-08 | XMS | Encounter Summary ---
Demographics + + + | Address | [address] | | | [place] [address] | + + + | Home Phone [...] Author | [facility] | | | and [place] | + + + | Organization | [facility] | [...] Providers + +------+ + | Care Contact And Service Clerks Supervisor Name | Role | Phone | [...] + + | 11/06/ | Hospital | [facility] | Johnathan Brooks, | Chronic right-sided | | 2019 - | Encounter | [facility] | MD Brooks TORRES | heart failure (HCC) | | | | CARE FLOOR [address] | [place] [address] | (Primary Dx); Acute | | 11/09/ | [address] | [phone] | hypoxemic | | 2019 | | [place], [place] | | respiratory failure | | | | [address] | Darell Kowalski MD | (HCC); Chronic | | | | [phone] | [address] | 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 | | | | | [phone] | failure (HCC); | | | | | | 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 | | | | | | ([facility]); ESRD on | | | | | | hemodialysis ([facility]); | | | | | | Moderate to severe | | | | | | pulmonary | | | | | | hypertension ([facility]); | | | | [...] | | | | | | function ([facility]); | | | | | | Non-compliance; | | | | | | Troponin I above | | | | | | reference range; | | | | | | Anemia in ESRD | | | | | | (end-stage renal | | | | | | disease) ([facility]); At | | | [...] be different fr om the original. [facility] Service: Medicine DISCHARGE SUMMARY Primary Care [...] evaluated at local emergency room at [facility]. In the ER patient was evaluated by [...] transferred with the patient's paper documentation from [facility] ER). Initial labs: WBC 6.5, hemoglobin [...] suggesting of edema. [facility] from Dr. Brooks [facility] (11/06/2018) HOSPITAL COURSE Patient was admitted [...] Surgeon: Blake Chavarria MD ; Location: [facility] MAIN OR AV FISTULA REPAIR Left 03/07/2014 Procedure: AV FISTULA - GRAFT REPAIR/REVISION; Surgeon: Rik Simon MD; Location: [facility]; Service: Vascular; Laterality: Left; biopsy of kidney age 10 DIALYSIS FISTULA CREATION 04/08/2014 Procedure: DIALYSIS CATHETER - INSERTION; Surgeon: Rik Simon MD; Location: [facility] ; Service: Vascular; Laterality: N/A; tunneled catheter.br hemodialysis catheter KIDNEY BIOPSY Left 2003 OTHER SURGICAL HISTORY LAPAROSCOPIC PERITONEAL DIALYSIS CATHETER INSERTION - x2 OTHER SURGICAL HISTORY Right 07/2013 LAPAROSCOPIC PERITONEAL DIALYSIS CATHETER INSERTION - current dialysis access MWF dialysis OTHER SURGICAL HISTORY Left 06/24/2014 SUPERFICIALIZATION OF AV FISTULA - Procedure: AV FISTULA - SUPERFICIALIZATION; Surgeon: Emanuel Simon MD; Location: [facility]; Service: Vascular; Laterality: Left; OTHER SURGICAL HISTORY Left 04/08/2014 AV FISTULA PLACEMENT - Procedure: AV FISTULA; Surgeon: Rik Simon MD; Location: [facility]; Service: Vascular; Laterality: Left; cephalic OTHER SURGICAL HISTORY Left 03/07/2014 DECLOT GRAFT - Procedure: GRAFT - DECLOT; Surgeon: Rik Simon MD; Location: [facility] ; Service: Vascular; Laterality: Left; peritoneal [...] Value Units Date/Time Culture, Body Fluid Sterile [[id number]] Collected: 11/07/18 1515 Order Status: Completed Lab Status: Preliminary result Updated: 11/09/18 1412 Specimen: Body Fluid from Pleural Fluid, Right Special Requests RIGHT SIDE Special Requests Testing performed at [facility];[address] [place] [address] Gram Stain Result NO CELLS OR ORGANISMS SEEN RESULT NO GROWTH 2 DAYS RESULT Testing performed at [facility], [address] [place] [address] Comment: Testing performed at [facility], [address] [place] [address] Culture, Body Fluid Sterile [[id number]] Order Status: Canceled Lab Status: No result [...] Alonso MD [address] [facility] [place] [id number] In 1 week René Anguiano MD [address] [facility] [address] [place] [address] In 1 week [...] her sister. DME equipment order sent to [facility]. She refused oxygen delivery [...] UF. Hypervolemia has improved with HD/UF/thoracentesis. Acute MT has been ruled out. Recommendations: Plan for [...] for continuity of chart review/care. Dictation software, Dogecoin, was used which may contain error for [...] this note might be different from the [facility] Inpatient Progress Note Pt: Dara Louise AGE/SEX: 23 y.o. ROOM: [facility]/8125- : 1995 PCP: Jonathan Alonso [...] hypervolemic and has recurrent hyperkalemia/metabolic acidosis. Acute MT has been ruled out. Recommendations: Plan for [...] for continuity of chart review/care. Dictation software, Dogecoin, was used which may contain error for [...] this note might be different from the [facility] Inpatient Progress Note Pt: Dara Louise AGE/SEX: 23 y.o. ROOM: [address] [place] [address] : 1995 PCP: Jonathan Alonso MD PATIENT [...] and dyspnea. The patient was seen at [facility] ER and then transferred to our [...] [address] | | | | | | [place] [address] | | | | | | [phone] | | | | | | | [...] + | Billie Gupta MD 11/09/2018 9:34 [facility] | | | Center Hemo-Dialysis [...] | | . 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 Resident Program Specialist 240 | | | Constitutional: pt [...] ANDREY | | | | performed at [facility], [address] | | LABORATORY | | | | [address] [place], | | | | | | [place] [address] | | | | + + + + + + + + | Specimen | + + | Blood | + + + + + + + | Performing | Address | City/State/Zipcode | Phone Number | | Organization | | | | + + + + + | [facility] | [address] | [place] [address] | [phone] | + + + + + Comprehensive [...] | | | | | performed at [facility], [address] | | | | | | [address] [facility], | | | | | | [place] [address] | | | | + + + + + + + + | Specimen | + + | Blood | + + + + + + + | Performing | Address | City/State/Zipcode | Phone Number | | Organization | | | | + + + + + | [facility] | [address] | [place] [address] | [phone] | + + + + + CBC [...] LABORATORY | | | | performed at [facility], [address] | | | | | | [address], | | | | | | [place] [address] | | | | | | | | | | + + + + + + + + | Specimen | + + | Blood | + + + + + + + | Performing | Address | City/State/Zipcode | Phone Number | | Organization | | | | + + + + + | [facility] | [address] | [place] [address] | [phone] | + + + + + Protime INR (11/09/2018 4:14 AM PDT) + + + + + + | Component | Value | Ref Range | Performed | Pathologist | | | | | At | Signature | + + + + + + | INR | 1.3Comment: REFERENCE | | [facility] | | | | RANGE:0.9 [...] [place] | | | | | | [address] | | | | + + + + + + + + | Specimen | + + | Blood | + + + + + + + | Performing | Address | City/State/Zipcode | Phone Number | | Organization | | | | + + + + + | [facility] | [address] | [place] [address] | [phone] | + + + + + Comprehensive [...] 9 (L)Comment: GFR <60: | >60 | [facility] | | | GFR | [...] | | | | | performed at [facility], [address] | | | | | | [facility], | | | | | | [place] [address] | | | | + + + + + + + + | Specimen | + + | Blood | + + + + + + + | Performing | Address | City/State/Zipcode | Phone Number | | Organization | | | | + + + + + | [facility] | [address] | [place] [address] | [phone] | + + + + + CBC [...] Blvd, | | | | | | [place] [address] | | | | | |Testing performed at [facility], [address], [place] [address] | | | | | | | | | | + + +---- + + + + + | Specimen | + + | Blood | + + + + + + + | Performing | Address | City/State/Zipcode | Phone Number | | Organization | | | | + + + + + | [facility] | [address] | [place] [address] | [phone] | + + + + + Protime [...] performed at [facility] | | | | | | [address] [facility];[place], [place] | | | | | | [address] | | | | + + + + + + + + | Specimen | + + | Blood | + + + + + + + | Performing | Address | City/State/Zipcode | Phone Number | | Organization | | | | + + + + + | [facility] | [address] | [place] [address] | [phone] | + + + + + XR [...] is | | | punctured with an 5-Icelandic thoracentesis catheter. Fluid is aspirated | | [...] the pleural space is punctured with an 5-Icelandic | | thoracentesis catheter. Fluid is aspirated [...] Special | Testing performed at | | [facility] | | | Requests | [facility];[address] | | LABORATORY | | | | [address] [address] | | | | + + + + + + | Gram Stain | NO CELLS OR ORGANISMS | | [facility] | | | Result | SEEN | | LABORATORY | | + + + + + + | RESULT | NO GROWTH 4 DAYS | | [facility] | | | | | | LABORATORY | | + + + + + + | RESULT | Testing performed at | | [facility] | | | | TCL, [address] [facility] | | LABORATORY | | | | [place] | | | | | | [id number]: Testing | | | | | | performed at [facility], [address] | | | | | | [place] | | | | | | [address] | | | | + + + + + + + + | Specimen | + + | Body Fluid - Pleural | | fluid specimen | | (specimen) | + + + + + + + | Performing | Address | City/State/Zipcode | Phone Number | | Organization | | | | + + + + + | [facility] | [address] | [place] [address] | [phone] | + + + + + Protein, Body Fluid (11/07/2018 3:15 PM PDT) + + + + + + | Component | Value | Ref Range | Performed | Pathologist | | | | | At | Signature | + + + + + + | Protein, BF | 3.4Comment: This is not | g/dL | [facility] | | | | a group contract analyst validated | | LABORATORY | | | | sample type for this | | | | | | method. No | | | | | | referenceranges have | | | | | | been established.Testing | | | | | | performed at [facility], [address] | | | | | [address], | | | | | | [place] [address] | | | | + + + + + + | SOURCE | PLEURAL FLUIDComment: | | [facility] | | | | Testing performed at | | LABORATORY | | | | [facility];[address] [facility] | | | | | | [address];[place] [address] | | | | + + + + + + + + | Specimen | + + | Body Fluid | + + + + + + + | Performing | Address | City/State/Zipcode | Phone Number | | Organization | | | | + + + + + | [facility] | [address] | [place] [address] | [phone] | + + + + + Lactate [...] [facility] | | | FLUID | a group contract analyst validated | | LABORATORY | | | | sample type for this | | | | | | method. No | | | | | | referenceranges have | | | | | | been established.Testing | | | | | | performed at [facility], [address] | | | | | [address] [facility], | | | | | | [place] [address] | | | | + + + + + + + + | Specimen | + + | Body Fluid | + + + + + + + | Performing | Address | City/State/Zipcode | Phone Number | | Organization | | | | + + + + + | [facility] | [address] [facility] | [place] [address] | [phone] | + + + + + Glucose, Body Fluid (11/07/2018 3:15 PM PDT) + + + + + + | Component | Value | Ref Range | Performed | Pathologist | | | | | At | Signature | + + + + + + | Glucose | 96Comment: This is not a | mg/dL | [facility] | | | Fluid | group contract analyst validated | | LABORATORY | | | | sample type for this | | | | | | method. No | | | | | | referenceranges have | | | | | | been established.Testing | | | | | | performed at [facility], [address] | | | | | [address], | | | | | | [place] [address] | | | | + + + + + + | SOURCE | PLEURAL FLUIDComment: | | [facility] | | | | Testing performed at | | LABORATORY | | | | [facility];[address] | | | | | | [address];[place] [address] | | | | + + + + + + + + | Specimen | + + | Body Fluid | + + + + + + + | Performing | Address | City/State/Zipcode | Phone Number | | Organization | | | | + + + + + | [facility] | [address] | [place] [address] | [phone] | + + + + + Cell [...] + + + | BF RBC | <960[address] | /mm3 | [facility] | | | [...] | | | Counted | performed at [facility] | | LABORATORY | | | | [address];[place], [place] | | | | | | [address] | | | | + + + + + + + + | Specimen | + + | Body Fluid | + + + + + + + | Performing | Address | City/State/Zipcode | Phone Number | | Organization | | | | + + + + + | [facility] | [address] | [place] [address] | [phone] | + + + + + Amylase, Body Fluid (11/07/2018 3:15 PM PDT) + + + + + + | Component | Value | Ref Range | Performed | Pathologist | | | | | At | Signature | + + + + + + | AMYLASE | 46Comment: This is not a | U/L | [facility] | | | FLUID | group contract analyst validated | | LABORATORY | | | | sample type for this | | | | | | method. No | | | | | | referenceranges have | | | | | | been established.Testing | | | | | | performed at [facility], [address] | | | | | | [address] [facility], | | | | | | [place] [address] | | | | + + + + + + + + | Specimen | + + | Body Fluid | + + + + + + + | Performing | Address | City/State/Zipcode | Phone Number | | Organization | | | | + + + + + | [facility] | [address] | [place] [address] | [phone] | + + + + + Albumin, Body Fluid (11/07/2018 3:15 PM PDT) + + + + + + | Component | Value | Ref Range | Performed | Pathologist | | | | | At | Signature | + + + + + + | Albumin, | 2.0Comment: This is not | g/dL | [facility] | | | Fluid | a group contract analyst validated | | LABORATORY | | | | sample type for this | | | | | | method. No | | | | | | referenceranges have | | | | | | been established.Testing | | | | | | performed at [facility], [address] | | | | | | [address] [facility], | | | | | | [place] [address] | | | | + + + + + + + + | Specimen | + + | Body Fluid | + + + + + + + | Performing | Address | City/State/Zipcode | Phone Number | | Organization | | | | + + + + + | [facility] | [address] | [place] [address] | [phone] | + + + + + Medical [...] preparation was | | | performed by [employer], [address] | | | [place] [address] (Float Nurse: Matt Claudio D.O.; CLIA#: | | | [id number]).Professional interpretation was performed by [employer] | | | [employer], | | | [place] [address] (Float Nurse: Daniel Larson M.D.; CLIA#: | | | [id number]).6 Diagnostician: Enrrique Nichols | | | CT(ASCP)CytotechnologistDiagnostician: [...] | | |Technical preparation was performed by [employer], [address] [employer] [address] [place] [address] (Float Nurse: Matt Claudio D.O.; CLIA#: [id number]). | | |Professional interpretation was performed by [employer], [address] [address] (Float Nurse: Daniel Larson M.D.; CLIA#: [id number]).6 | | | | | |Diagnostician: Enrrique BROOKS(ASCP) | | |Criminal Investigator | | |Diagnostician: Daniel Larson MD | [...] | [facility];[address] [facility] | | | | | | Blvd;[place] [address] | | | | + + + + + + + + | Specimen | + + | Blood | + + + + + + + | Performing | Address | City/State/Zipcode | Phone Number | | Organization | | | | + + + + + | [facility] | [address] | [place] [address] | [phone] | + + + + + ECG [...] | INR | 1.3Comment: REFERENCE | | [facility] | | | | RANGE:0.9 [...] | | | [address] [facility];[place], [place] | | | | | | [address] | | | | + + + + + + + + | Specimen | + + | Blood | + + + + + + + | Performing | Address | City/State/Zipcode | Phone Number | | Organization | | | | + + + + + | [facility] | [address] | [place] [address] | [phone] | + + + + + Platelet Count (11/07/2018 4:03 AM PDT) + + + + + + | Component | Value | Ref Range | Performed | Pathologist | | | | | At | Signature | + + + + + + | Platelet | 185Comment: Testing | 150 - 400 K/uL | [facility] | | | Count | performed at [facility], [address] | | LABORATORY | | | | [address], | | | | | | [place] [address] | | | | + + + + + + + + | Specimen | + + | Blood | + + + + + + + | Performing | Address | City/State/Zipcode | Phone Number | | Organization | | | | + + + + + | [facility] | [address] | [place] [address] | [phone] | + + + + + PTT [...] [place] | | | | | | [address] | | | | + + + + + + + + | Specimen | + + | Blood | + + + + + + + | Performing | Address | City/State/Zipcode | Phone Number | | Organization | | | | + + + + + | [facility] | [address] | [place] [address] | [phone] | + + + + + Lactate [...] [place] | | | | | | [address] | | | | + + + + + + + + | Specimen | + + | Blood | + + + + + + + | Performing | Address | City/State/Zipcode | Phone Number | | Organization | | | | + + + + + | [facility] | [address] | [place] [address] | [phone] | + + + + + Magnesium [...] | | LABORATORY | | | | [address];[place], [place] | | | | | | [address] | | | | + + + + + + + + | Specimen | + + | Blood | + + + + + + + | Performing | Address | City/State/Zipcode | Phone Number | | Organization | | | | + + + + + | [facility] | [address] | [place] [address] | [phone] | + + + + + Comprehensive [...] 7 (L)Comment: GFR <60: | >60 | [facility] | | | GFR | [...] | | | | | performed at [facility], [address] | | | | | | [facility], | | | | | | [place] [address] | | | | + + + + + + + + | Specimen | + + | Blood | + + + + + + + | Performing | Address | City/State/Zipcode | Phone Number | | Organization | | | | + + + + + | [facility] | [address] | [place] [address] | [phone] | + + + + + Troponin I (11/06/2018 9:54 PM PDT) + + + + + + | Component | Value | Ref Range | Performed | Pathologist | | | | | At | Signature | + + + + + + | Troponin I | 0.045 (H)Comment: 0.04 | 0.00 - 0.04 | [facility] | | | | ng/mL [...] | [facility];[address] | | | | | [address];[place] [address] | | | | + + + + + + + + | Specimen | + + | Blood | + + + + + + + | Performing | Address | City/State/Zipcode | Phone Number | | Organization | | | | + + + + + | [facility] | [address] | [place] [address] | [phone] | + + + + + Protime [...] performed at [facility] | | | | | | [address];[place], [place] | | | | | | [address] | | | | + + + + + + + + | Specimen | + + | Blood | + + + + + + + | Performing | Address | City/State/Zipcode | Phone Number | | Organization | | | | + + + + + | [facility] | [address] | [place] [address] | [phone] | + + + + + ECHO [...] (H)Comment: 0.04 | 0.00 - 0.04 | [facility] | | | | ng/mL [...] | | [facility];[address] [place] [address] | | | | | | [facility];[place] [address] | | | | + + + + + + + + | Specimen | + + | Blood | + + + + + + + | Performing | Address | City/State/Zipcode | Phone Number | | Organization | | | | + + + + + | [facility] | [address] | [place] [address] | [phone] | + + + + + Magnesium [...] | | | | | [place] [address] | | | | + + + + + + + + | Specimen | + + | Blood | + + + + + + + | Performing | Address | City/State/Zipcode | Phone Number | | Organization | | | | + + + + + | [facility] | [address] | [place] [address] | [phone] | + + + + + documented [...]
--- OUTSIDE RECORDS SUMMARY | ~2019-03-08 | XMS | Encounter Summary ---
[...] Author | [facility] | | | and Josephana | + + + | Organization | [facility] | [...] Team Providers + +------+ + | Care Fence Installer Name | Role | Phone | + +------+ + | Tien Nicholson MD | PCP | | + +------+ + Encounter Details +--------+ + + + + | Date | Type | Department | Care Team | Description | +--------+ + + + + | 10/17/ | Hospital | [facility] | Nikita, | SOB (shortness of | | 2019 - | Encounter | [facility] | MD [address] | breath); Pleural | | | | CARE FLOOR [address] | effusion on right; | | 10/20/ | | [address] | [place] [address] | ESRD needing | | 2019 | | [place], [place] | [phone] | dialysis ([facility]); End | | | | [address] | | stage renal disease | | | | [phone] | | (HCC) | +--------+ + + [...] | | | | renal disease) ([facility]) | protocol | | | [...] + + +---------+ + + | B Wuiasgn-U-Kyawg | Take 1 tablet by | | [...] 10/19/182357 Date of Service: 10/19/182357 Status: Signed Dural Mechanic: Vira Ford RN (Registered Nurse) No acute [...] 10/19/181827 Date of Service: 10/19/181826 Status: Signed Dural Mechanic: Trent Jovel RN (Registered Nurse) Dialysis completed today 2.4L removed. Remains on fluid restriction. Medicated for pain x 2. End of shift review complete. Trent Jovel RN onver arturo Transaction, Provider Unknown - 10/19/2018 3:36 PM PDT Case Management by DORON Diallo at 10/19/18 1536 Author: DORON Diallo Service: (none) Author Type: Roofer Helper Vinyl Coating Filed: 10/19/18 1537 Date of Service: 10/19/18 1536 Status: Signed Dural Mechanic: DORON Diallo (Roofer Helper Vinyl Coating) Discharge planning: Return home when medically ready for discharge. Pt is receiving dialysi s on MWF. Pt is currently on 4L O2, pt may need a home O2 evaluation at discharge. Antonio Carrasco MD - 10/19/2018 12:14 PM PDTFormatting of this note might be different from the orig inal. Progress Notes by Antonio Pabon MD at 10/19/18 7184 Author: Antonio Pabon MD Service: Nephrology Author Type: Physician Filed: 10/25/18 3108 Date of Service: 10/19/18 1214 Status: Addendum Dural Mechanic: Antonio Pabon MD (Physician) Related Notes: Original Note by Antonio Pabon MD (Physician) filed at 10/25/18 1459 [facility] Service: NEPHROLOGY Progress Note Dara Weldon 23 y.o. [id number] female TIEN NICHOLSON 23-year-old female with [...] AV FISTULA; Surgeon: Rik Simon MD; Location: [facility] OR; Service: Vascula r; Laterality: Left; cephalic AV FISTULA REPAIR Left 03/07/2014 Procedure: AV FISTULA - GRAFT REPAIR/REVISION; Surgeon: Rik Simon MD; Location: [facility] IN OR; Service: Vascular; Laterality: Left; DECLOT GRAFT Left 03/07/2014 Procedure: GRAFT - DECLOT; Surgeon: Rik Simon MD; Location: [facility] OR; Service: Vas cular; Laterality: Left; DIALYSIS FISTULA CREATION N/A 04/08/2014 Procedure: DIALYSIS CATHETER - INSERTION; Surgeon: Rik Simon MD; Location: [facility] OR ; Service: Vascular; Laterality: N/A; tunneled catheter LAPAROSCOPIC PERITONEAL DIALYSIS CATHETER INSERTION x2 LAPAROSCOPIC PERITONEAL DIALYSIS CATHETER INSERTION Right 07/2013 current dialysis access MWF dialysis RENAL BIOPSY Left 2003 SUPERFICIALIZATION OF AV FISTULA Left 06/24/2014 Procedure: AV FISTULA - SUPERFICIALIZATION; Surgeon: Rik Simon MD; Location: [facility] OR; Service: Vascular; Laterality: [...] file Social History Narrative She lives in [facility]. She does not work. [...] ral space is punctured with an 5 Australian Luc[employer] ([employer]) centesis catheter. Fluid is aspirated without complication. [...] 1 VIEW (10/17/2018); CHEST TWO V IEWS 32996 (10/17/2018); FINDINGS: Compared to the prior examination [...] MR, severe TR.severe pulmonary hypertens ion Chest a-tbc-mcflqapaemfe with pulmonary edema and large right pleural [...] earlier and charting completed later Dictation software, Antengo, used which may contain error for similar sounding words even af ter review. Personal communication requested for any clarification. inGerber pastrana MD - 10/19/2018 7:48 AM PDT Progress Notes by Gerber Pearson MD at 10/19/18 0748 Author: Gerber Pearson MD Service: Hospitalist Author Type: Physician Filed: 10/19/18 0753 Date of Service: 10/19/1848 Status: Signed Dural Mechanic: Gerber Pearson MD (Physician) [facility] Service: Hospitalist Progress Note Hospital Day: LOS: [...] with dyspnea Patient was recently discharged from [facility] on 08/23/2018. For full note, please see ketan agudelo summary from hospitalist. In summary, the patient was admitted for noncardiogenic pulmo nary edema after thoracentesis. At that point, prior to admission, [facility] in [place] on 08/21 where she underwent right th [...] BUN 90 on admission -History of a Cooter Schnlein purpura -Last hemodialysis approximately 2 weeks [...] 10/19/18733 Date of Service: 10/19/18733 Status: Signed Dural Mechanic: Vira Ford RN (Registered Nurse) No acute changes from shift assessment. VSS. Pt medicated for pain as requested and availab le. End of shift review and 24 hour chart check complete. onver arturo Transaction, Provider Unknown - 10/18/2018 5:01 PM PDT Case Management by DORON Diallo at 10/18/181700 Author: DORON Diallo Service: (none) Author Type: Roofer Helper Vinyl Coating Filed: 10/18/181706 Date of Service: 10/18/181700 Status: Signed Dural Mechanic: DORON Diallo (Roofer Helper Vinyl Coating) Discharge planning: Return home when medically ready for discharge. Gerber Fernandez MD - 10/18/2018 7:46 AM PDT Progress Notes by Gerber Pearson MD at 10/18/18745 Author: Gerber Pearson MD Service: Hospitalist Author Type: Physician Filed: 10/18/18 0751 Date of Service: 10/18/18745 Status: Signed Dural Mechanic: Gerber Pearson MD (Physician) [facility] Service: Hospitalist Progress Note Hospital Day: LOS: [...] with dyspnea Patient was recently discharged from [facility] on 08/23/2018. For full note, please see ketan agudelo summary from hospitalist. In summary, the patient was admitted for noncardiogenic pulmo nary edema after thoracentesis. At that point, prior to admission, [facility] in [place] on 08/21 where she underwent right th [...] BUN 90 on admission -History of a Cooter Schnlein purpura -Last hemodialysis approximately 2 weeks [...] 10/25/182002 Date of Service: 10/18/18744 Status: Signed Dural Mechanic: Antonio Pabon MD (Physician) [facility] Service: NEPHROLOGY Progress Note Dara Weldon 23 y.o. [id number] female [facility] Day: LOS: 1 day 23-year-old [...] AV FISTULA; Surgeon: Rik Simon MD; Location: [facility] OR; Service: Vascula r; Laterality: Left; cephalic AV FISTULA REPAIR Left 03/07/2014 Procedure: AV FISTULA - GRAFT REPAIR/REVISION; Surgeon: Rik Simon MD; Location: [facility] IN OR; Service: Vascular; Laterality: Left; DECLOT GRAFT Left 03/07/2014 Procedure: GRAFT - DECLOT; Surgeon: Rik Simon MD; Location: [facility] OR; Service: Vas cular; Laterality: Left; DIALYSIS FISTULA CREATION N/A 04/08/2014 Procedure: DIALYSIS CATHETER - INSERTION; Surgeon: Rik Simon MD; Location: [facility] OR ; Service: Vascular; Laterality: N/A; tunneled catheter LAPAROSCOPIC PERITONEAL DIALYSIS CATHETER INSERTION x2 LAPAROSCOPIC PERITONEAL DIALYSIS CATHETER INSERTION Right 07/2013 current dialysis access MWF dialysis RENAL BIOPSY Left 2003 SUPERFICIALIZATION OF AV FISTULA Left 06/24/2014 Procedure: AV FISTULA - SUPERFICIALIZATION; Surgeon: Rik Simon MD; Location: [facility] OR; Service: Vascular; Laterality: [...] file Social History Narrative She lives in [facility]. She does not work. [...] QTC Calculation (Bezet) 469 ms Calculated P [place] 46 degrees Calculated R [place] 127 degrees Calculated T [place] 94 degrees Diagnosis Normal sinus rhythm Right [...] MR, severe TR.severe pulmonary hypertens ion Chest a-ewg-dclunlcmcjls with pulmonary edema and large right pleural [...] earlier and charting completed later Dictation software, Antengo, used which may contain error for similar [...] 10/18/1853 Date of Service: 10/18/18650 Status: Signed Dural Mechanic: Ronnie Vargas RN (Registered Nurse) Pt alert and oriented X 4. PRN pain med given for back pain. No other acute changes durin g shift. Chart check complete onver arturo Transaction, Provider Unknown - 10/17/2018 9:48 AM PDT Case Management by DORON Diallo at 10/17/18 0948 Author: DORON Diallo Service: (none) Author Type: Roofer Helper Vinyl Coating Filed: 10/17/1854 Date of Service: 10/17/18947 Status: Signed Dural Mechanic: DORON Diallo (Roofer Helper Vinyl Coating) 10/17/18 09 Discharge Planning Evaluation Admitting Diagnosis (SOB) Readmission Other (comment) (Last admit 08/20/18) Living Arrangements Alone Support Systems Family members;Friends/neighbors Type of Residence Private residence House type Apartment Independent with ADL's Yes Independent with Mobility Yes Home Care Services No Caregiver after Discharge No Mental Status Oriented Prior functional status (Independent) Power of Mail Technician No Resources Financial concerns No Transportation issues No Patient/Family concerns No Prescription Plan Yes Name of Pharmacy ([facility] in [place]) Previous home health equipment No Anticipated Disposition Facility Type Home DORON CM met with pt and discussed discharge planning. Pt is a 23 y.o., female admitted for s hortness of breath. Pt resides alone in an apartment at [address], [address], [place] [address]. Pt reported that she has neighbor and friend support. Pt's mother, Thania cheung can be reached at and sister, Saundra can be reached at . Pt reported being independent with ADL's,, IADL's and mobility prior to this admission. Pt denied previous outpatient OT/PT services, home care services and home O2 prior to this admission. Pt reported that she received dialysis from [facility] [place] on MWF prior to this admission . [...] 10/17/18743 Date of Service: 10/17/18743 Status: Signed Dural Mechanic: Camilla Moody RPH (Pharmacist) Clinical Pharmacy Note: [...] 0747 Date of Service: 10/17/18716 Status: Signed Dural Mechanic: Gerber Pearson MD (Physician) [facility] Service: Hospitalist Progress Note Hospital Day: LOS: [...] with dyspnea Patient was recently discharged from [facility] on 08/23/2018. For full note, please see discha rge summary from hospitalist. In summary, the patient was admitted for noncardiogenic pulmo nary edema after thoracentesis. At that point, prior to admission, she was [facility] in [place] on 08/21 where she underwent right th [...] the case over the phone with patient's site promotion agent Dr. Mahmood, recommends medi oly management and [...] creatinine 14, BUN 90 -History of a Cooter Schnlein purpura -Last hemodialysis approximately 2 weeks [...] [address] | | | | | | [place] [address] | | | | | | [phone] | | | | | | | [...] W | | | | | | [facility], | | | | | | [place] [address] | | | | + + + [...] CHEST 1 VIEW (10/17/2018); CHEST TWO VIEWS 82573 | | | (10/17/2018); FINDINGS: Compared to [...] VIEW | | (10/17/2018); CHEST TWO VIEWS 44656 (10/17/2018); | | FINDINGS: | | Compared [...] pleural space is punctured with an 5 Australian [employer] Engineeringesis catheter. | | | Fluid is aspirated [...] pleural space is punctured with an 5 Australian Yueh | | [employer]esis catheter. Fluid is aspirated without complication. The [...] W | | | | | | [facility], | | | | | | [place] [address] | | | | | |Testing performed at [facility], [address] [place] [address] | | | | | | | [...] | | | | | [place] [address] | | | | + + + [...] W | | | | | | [facility], | | | | | | [place] [address] | | | | + + + [...] | | | | | [facility] [place] [address] | | | | | | [facility];[place] [address] | | | | + + [...] [facility] | | LAB | | | | [address];[place], [place] | | | | | | [address] | | | | + + + [...] | | | | | [facility] [place] [address] | | | | | | [facility];[place] [address] | | | | + + + [...] [facility];[address] | | LAB | | | | [facility], [place] | | | | | | [address] | | | | + + + [...] | | | | | | [address]ica [address];[place], [place] | | | | | | [address] | | | | + + + [...] | | | | | [facility];[address] [place] [address] | | | | | | Bl;[place] [address] | | | | + + + [...] | | | | | [facility];[address] [facility] | | | | | | [facility];[place] [address] | | | | + + + [...] LAB | | | | [facility];[address] [facility] | | | | | | [address]vd;[place] [address] | | | | + + + [...]
--- OUTSIDE RECORDS SUMMARY | ~2019-03-08 | XMS | Encounter Summary ---
Demographics + + + | Address | [address] | | | [place] [address] | + + + | Home Phone [...] | | | | | [place] [address] | | + + + + + | Thania Mallory | ECON | [address] | | | | | [place] [address] | | + + + + + | Deidra Weldon | ECON | [address] | | | | | [place] | | | | | [address] | | + + + + + Care Team Providers + +------+ + | Care Rubber Stamp Maker Name | Role | Phone | [...] updated) | | | | [address] [place], | [place], [place] | | | | | [place] [address] | [address] | | | | | [phone] | [phone] | | | | | | | [...] Denise | | | | | | [place] | | | | | | [address] | | | | | | [phone] | | | | | | | | +--------+ + + + + documented as of this encounter Visit Diagnoses Not on filedocumented in this encounter"
--- OUTSIDE RECORDS SUMMARY | ~2019-03-08 | XMS | Encounter Summary ---
Demographics + + + | Address | [address] | | | [place] [address] | + + + | Home Phone [...] | Author | [facility] | | | and Josephana | + + + | Organization | [facility] | [...] Providers + +------+ + | Care Fish Culturist Name | Role | Phone | + [...] | | | | [address] | [place], [place] | [place], [place] | | | | | stage renal | [address] | [address] Phone: | | | | | disease | Phone: | [phone] | | | | | ([facility]) | [phone] | Fax: | | | | | Infection | Fax: | [phone] | | | | | and | [phone] | | | | | | inflammatory [...] | | [address] | [address] | (Primary Dx) | | | | [place], [place] | [place], [place] | | | | | [address] | [address] | | | | | [phone] | | | +--------+ + + + [...] PM PDT Subjective: DIALYSIS NOTE Patient ID: Draa Weldon is a 19 y.o. female. HPI [...] into the vein Three times a w [place] coos. epoetin jenna (EPOGEN, PROCRIT) 10,000 units/mL injection [...] she should keep up t his effort mcfp. 3. Heat, Daniel Denny, OTC, and tramadol, short term for her back. 4. Will recheck her in 1 week. CC: Madison Fina Joy MD, [facility], [facility] signed by Jorje Camp DO at [...] [address] | | | | | | [place] [address] | | | | | | [phone] | | | | | | | | +--------+---------+ + + + documented as of this encounter Visit Diagnoses + + | Diagnosis | + + | ESRD (end stage renal disease) (HCC) - Primary End stage renal disease | + + documented in this encounter
--- OUTSIDE RECORDS SUMMARY | ~2019-03-08 | XMS | Encounter Summary ---
Demographics + + + | Address | [address] | | | [place] [address] | + + + | Home Phone [...] | | | | | [place] [address] | | + + + + + | Thania Mallory | ECON | [address] | | | | | [place] [address] | | + + + + + | Deidra Weldon | ECON | [address] | | | | | [place] | | | | | [address] | | + + + + + Care Team Providers + +------+ + | Care Medical Appliance Maker Name | Role | Phone | [...] Elias | [facility] | | | | | [address] [facility], | [place], [place] | | | | | [place] [address] | [address] | | | | | [phone] | | | +--------+ + + + [...] Denise | | | | | | [place], [place] | | | | | | [address] | | | | | | [phone] | | | | | | | | +--------+ + + + + documented as of this encounter Visit Diagnoses Not on filedocumented in this encounter"
--- OUTSIDE RECORDS SUMMARY | ~2019-03-08 | XMS | Encounter Summary ---
Demographics + + + | Address | [address] | | | [place] [address] | + + + | Home Phone [...] [facility] | | | and Josephana | + + + | Organization | [facility] [...] Providers + +------+ + | Care Final Tester Name | Role | Phone | [...] NEPHROLOGY [address] | M, DO [address] | | | | | [address] | [place] | | | | | [place], [place] | [place], [place] | | | | | [address] | [address] | | | | | [phone] | | | +--------+ + + + [...] contact with the dialysis staff in clinical team manager on a frequent basis. Outpatient Prescriptions Marked [...] will be rechecked in 2 weeks. : Morrow Fina documented in thi s encounter Plan [...] | | | | | [place] [address] | | | | | | [phone] | | | | | | | | +--------+---------+ + + + documented as of this encounter Visit Diagnoses + + | Diagnosis | + + | ESRD (end stage renal disease) (HCC) - Primary End stage renal disease | + + documented in this encounter"
--- OUTSIDE RECORDS SUMMARY | ~2019-03-08 | XMS | Encounter Summary ---
Demographics + + + | Address | [address] | | | [place] [address] | + + + | Home Phone [...] | Author | [facility] | | | and Josephana | + + + | Organization | [facility] | [...] Team Providers + +------+ + | Care Washer Operator Name | Role | Phone | + +------+ + | Tien Nicholson MD | PCP | | + +------+ + Encounter Details +--------+ + + + + | Date | Type | Department | Care Team | Description | +--------+ + + + + | 05/26/ | Hospital | [facility] | Mayco Rizvi MD | Chest pain, | | 2019 - | Encounter | [facility] | [address] [place] | unspecified type; | | | | CARE FLOOR [address] | [address] [place], [place] | Hypoalbuminemia; | | 06/01/ | | [address] | [address] | Anemia in ESRD | | 2019 | | [place], [place] | | (end-stage renal | | | | [address] | | disease) ([facility]); | | | | [phone] | | End-stage renal | | | | | | disease on | | | | | | hemodialysis ([facility]); | | | | | | [...] | | | | failure) ([facility]) | +--------+ + [...] Date of Service: 06/01/18 0959 Status: Addendum [employer]stabout Crew Leader: Darell Rossi MD (Physician) Related Notes: Original Note by Darell Rossi MD (Physician) filed at 06/04/18 1384 [facility]: Hospitalist Physician Discharge Summary Pt: Dara Louise AGE/SEX: 23 y.o. female ROOM: [address] [place] [address] PCP: TIEN NICHOLSON : 1995 Admit date: [...] 17. The mitral valve is normal. 18. Djua-cv-qfuzt ate eccentric mitral regurgitation is present. 19. [...] of chronic disease who went to [facility] with increasing shortness of breath found [...] hyperkalemia with that. I discussed with the disability counselor as well regarding not being on [place]/ARB. [...] Component Value Units Date/Time Culture, Body Fluid [[id number]] Collected: 05/26/18 1412 Specimen: Body Fluid from Pleural Fluid Updated: 05/30/18 0733 Specimen Description PLEURAL FLUID GRAM STAIN WBC'S SEEN GRAM STAIN NO ORGANISMS SEEN GRAM STAIN STAIN PERFORMED ON CYTOSPIN CULTURE NO GROWTH 4 DAYS Culture, Body Fluid [[id number]] Collected: 05/26/18 1513 Specimen: Other from Ascites Fluid Updated: 05/30/18 0732 Specimen Description ASCITES FLUID GRAM STAIN STAIN PERFORMED ON CYTOSPIN GRAM STAIN WBC'S SEEN GRAM STAIN NO EPITHELIAL CELLS SEEN GRAM STAIN NO ORGANISMS SEEN CULTURE NO GROWTH 4 DAYS Gram stain [[id number]] Collected: 05/29/18 1256 Specimen: Sputum from Thoracic Fluid Updated: 05/29/18 2339 Specimen Description THORACIC FLUID CULTURE 1+ WBC'S SEEN NO ORGANISMS SEEN Lactate dehydrogenase, body fluid [[id number]] Collected: 05/29/18 1256 Specimen: Body Fluid from Pleural, Right Updated: 05/29/18 1619 FLUID LDH 151 U/L Cholesterol, body fluid [[id number]] Collected: 05/29/18 1256 Specimen: Body Fluid from [...] Nicholson MD [address] [place] [address] In 1 week Carolina Mahmood DO [address] [place] [facility] [id number] In 1 week Daniela Ibarra MD [address] [facility] [address] In 1 week Discharge took more than 35 minutes, to include final examination, discussion of admission, and preparation of prescriptions, instructions for ongoing care, follow up and dictation of summary. Signed: DARELL ROSSI MD 06/01/2018 9:59 AM Dictation software, Tripping, used which may contain error for similar [...] | | | renal disease) ([facility]) | protocol | | | | [...] Date of Service: 06/01/18 150 Status: Signed [employer]about Crew Leader: Tino Paiz CRT (Certified Respiratory Therapist) [facility] Department of Respiratory Residential Oxygen Evaluation (Evaluation [...] (none) Author Type: Registered Nurse Filed: 06/01/18 4045 Date of Service: 06/01/18 1500 Status: Signed [employer] Crew Leader: Autumn Moy RN (Registered Nurse) Pt was [...] Date of Service: 06/01/18 1248 Status: Signed [employer] Crew Leader: Leanna Ariza RN (Registered Nurse) Pt will d/c home today --already established on HD/[place] MWF --will have O2 eval today No other needs Angela Antonio Carrasco MD - 06/01/2018 10:52 AM PDTFormatting of this note might be different from the orig inal. Progress Notes by Antonio Benjamin MD at 06/01/18 1052 Author: Antonio Benjamin MD Service: Nephrology Author Type: Physician Filed: 06/05/18 1253 Date of Service: 06/01/18 1052 Status: Signed [employer]stabout Crew Leader: Antonio Benjamin MD (Physician) [facility]: NEPHROLOGY Dialysis/ Progress Note Dara Lundberg Shiraz 23 y.o. [id number] female [facility] Day: LOS: 6 days Patient with [...] FISTULA; Surgeon: Rik Simon MD; Location: [facility] MAIN OR; Service: Vascula r; Laterality: Left; cephalic AV FISTULA REPAIR Left 03/07/2014 Procedure: AV FISTULA - GRAFT REPAIR/REVISION; Surgeon: Rik Simon MD; Location: [facility] IN OR; Service: Vascular; Laterality: Left; DECLOT GRAFT Left 03/07/2014 Procedure: GRAFT - DECLOT; Surgeon: Rik Simon MD; Location: [facility] OR; Service: Vas cular; Laterality: Left; DIALYSIS FISTULA CREATION N/A 04/08/2014 Procedure: DIALYSIS CATHETER - INSERTION; Surgeon: Rik Simon MD; Location: [facility] MA[facility] OR ; Service: Vascular; Laterality: N/A; tunneled catheter LAPAROSCOPIC PERITONEAL DIALYSIS CATHETER INSERTION x2 LAPAROSCOPIC PERITONEAL DIALYSIS CATHETER INSERTION Right 07/2013 current dialysis access MWF dialysis RENAL BIOPSY SUPERFICIALIZATION OF AV FISTULA Left 06/24/2014 Procedure: AV FISTULA - SUPERFICIALIZATION; Surgeon: Rik Simon MD; Location: [facility] MA[facility] OR; Service: Vascular; Laterality: Left; History [...] radiologist report and is used for image [employer] [place] only Us Abdomen Limited Result Date: 05/28/2018 [...] 17. The mitral valve is normal. 18. Vunq-os-jvtdkctu eccentric mitral regurgitation i s present. 19. [...] mitral valve is normal. Mitral Kait ve: Ppux-xk-ryutvvua eccentric mitral regurgitation is present. Tricuspid Valve: [...] maxP.08 mmHg TR Vmax: 2.7 4 m/s Public Health Microbiologist: MOO Authenticated by: Robel Yusuf MD Report [...] 17. The mitral valve is normal. 18. Mzww-ls-uuxmh ate eccentric mitral regurgitation is present. 19. [...] pleural spac e is punctured with an 8-[place] thoracentesis catheter. Fluid is aspirated without complicat [...] earlier and charting completed later Dictation software, Tripping, used which may contain error for similar [...] 0632 Date of Service: 06/01/1835 Status: Signed [employer]stabout Crew Leader: Aury Eldridge RN (Registered Nurse) Pts VSS. [...] 05/31/181840 Date of Service: 05/31/181840 Status: Signed [employer]stabout Crew Leader: Romelia Cooley RN (Registered Nurse) End of shift chart review complete. Romelia Cooley RN koum, René Mckeon MD - 05/31/2018 11:32 AM PDTFormatting of this note might be different from the candice ginal. Progress Notes by René Anguiano MD at 05/31/18 113 Author: René Anguiano MD Service: Nephrology Author Type: Physician Filed: 05/31/18 1654 Date of Service: 05/31/18 113 Status: Addendum [employer]about Crew Leader: René Anguiano MD (Physician) Related Notes: Original [...] put on "an antibiotic" for pneumonia at [facility] ED. Was throwing up & could [...] the prelim submitted orders, MWF No acute BOOM WORKER indication ESTEFANY as indicated with HD Protein [...] 0951 Date of Service: 05/31/18941 Status: Signed [employer]stabout Crew Leader: Darell Rossi MD (Physician) [facility]: Hospitalist Progress Note Pt: Dara Louise AGE/SEX: 23 y.o. female ROOM: [address] [place] [address] : 1995 PCP: TIEN NICHOLSON ADMIT DATE: 05/26/2018 TODAY'S DATE: 05/31/2018 Hospital Day/Hospital Course: LOS: [address] Figueroa 23-year-old female with past medical history of end-stage renal disease on hemodialysis Mon, hypertension, anemia of chronic disease who went to [facility] with increasing shortness of breath found [...] Component Value Units Date/Time Culture, Body Fluid [[id number]] Collected: 05/26/18 1412 Specimen: Body Fluid from Pleural Fluid Updated: 05/30/18 0733 Specimen Description PLEURAL FLUID GRAM STAIN WBC'S SEEN GRAM STAIN NO ORGANISMS SEEN GRAM STAIN STAIN PERFORMED ON CYTOSPIN CULTURE NO GROWTH 4 DAYS Culture, Body Fluid [[id number]] Collected: 05/26/18 1513 Specimen: Other from Ascites Fluid Updated: 05/30/18 0732 Specimen Description ASCITES FLUID GRAM STAIN STAIN PERFORMED ON CYTOSPIN GRAM STAIN WBC'S SEEN GRAM STAIN NO EPITHELIAL CELLS SEEN GRAM STAIN NO ORGANISMS SEEN CULTURE NO GROWTH 4 DAYS Gram stain [[id number]] Collected: 05/29/18 1256 Specimen: Sputum from Thoracic Fluid Updated: 05/29/18 2339 Specimen Description THORACIC FLUID CULTURE 1+ WBC'S SEEN NO ORGANISMS SEEN Lactate dehydrogenase, body fluid [[id number]] Collected: 05/29/18 1256 Specimen: Body Fluid from Pleural, Right Updated: 05/29/18 1619 FLUID LDH 151 U/L Cholesterol, body fluid [[id number]] Collected: 05/29/18 1256 Specimen: Body Fluid from Pleural, Right Updated: 05/29/18 1619 FLUID CHOLESTEROL 56 mg/dL Sputum culture [[id number]] Collected: 05/27/182014 Specimen: Sputum from Sputum Updated: [...] 17. The mitral valve is normal. 18. Kqlk-sb-mnxhh ate eccentric mitral regurgitation is present. 19. [...] of chronic disease who went to [facility] with increasing shortness of breath due to acute congestive heart failure Acute systolic congestive heart failure with Pleural Effusion: Admitted with acute systolic congestive heart failure with bilateral pleural effusion stat us post thoracentesis 2. Her breathing has improved. She is talking to me appropriately. N ot in any kind of distress. caregiver services home to initiate the discharge plan. Possible dischar [...] MD, FACP 05/31/2018 9:42 AM Dictation software, Tripping, used which may contain error for similar [...] 05/31/18253 Date of Service: 05/31/18253 Status: Signed [employer]about Crew Leader: Nandini Robertson RN (Registered Nurse) Chart review completed. onver arturo Transaction, Provider Unknown - 05/30/2018 6:37 PM PDT Nurse Progress Note by Kyra Amador RN at 05/30/181836 Author: Kyra Amador RN Service: (none) Author Type: Registered Nurse Filed: 05/30/181842 Date of Service: 05/30/181836 Status: Signed [employer]stabout Crew Leader: Kyra Amador RN (Registered Nurse) VSS. Pt [...] Date of Service: 05/30/18 0909 Status: Signed [employer]stabout Crew Leader: Darell Rossi MD (Physician) [facility]: Hospitalist Progress Note Pt: Dara Toño Louise AGE/SEX: 23 y.o. female ROOM: [facility]- : 1995 PCP: TIEN NICHOLSON ADMIT DATE: 05/26/2018 TODAY'S DATE: 05/30/2018 Hospital Day/Hospital Course: LOS: [address] Figueroa 23-year-old female with past medical history of end-stage renal disease on hemodialysis Mon day Monday, hypertension, anemia of chronic disease who went to [facility] with increasing shortness of breath found [...] Component Value Units Date/Time Culture, Body Fluid [[id number]] Collected: 05/26/18 1412 Specimen: Body Fluid from Pleural Fluid Updated: 05/30/18 2845 Specimen Description PLEURAL FLUID GRAM STAIN WBC'S SEEN GRAM STAIN NO ORGANISMS SEEN GRAM STAIN STAIN PERFORMED ON CYTOSPIN CULTURE NO GROWTH 4 DAYS Culture, Body Fluid [[id number]] Collected: 05/26/18 1513 Specimen: Other from Ascites Fluid Updated: 05/30/18 0732 Specimen Description ASCITES FLUID GRAM STAIN STAIN PERFORMED ON CYTOSPIN GRAM STAIN WBC'S SEEN GRAM STAIN NO EPITHELIAL CELLS SEEN GRAM STAIN NO ORGANISMS SEEN CULTURE NO GROWTH 4 DAYS Gram stain [[id number]] Collected: 05/29/18 1256 Specimen: Sputum from Thoracic Fluid Updated: 05/29/18 2339 Specimen Description THORACIC FLUID CULTURE 1+ WBC'S SEEN NO ORGANISMS SEEN Lactate dehydrogenase, body fluid [[id number]] Collected: 05/29/18 1256 Specimen: Body Fluid from Pleural, Right Updated: 05/29/18 1619 FLUID LDH 151 U/L Cholesterol, body fluid [[id number]] Collected: 05/29/18 1256 Specimen: Body Fluid from Pleural, Right Updated: 05/29/18 1619 FLUID CHOLESTEROL 56 mg/dL Sputum culture [[id number]] Collected: 05/27/182014 Specimen: Sputum from Sputum Updated: [...] 17. The mitral valve is normal. 18. Atri-vh-ptape ate eccentric mitral regurgitation is present. 19. [...] of chronic disease who went to [facility] with increasing shortness of breath due [...] MD, FACP 05/30/2018 9:10 AM Dictation software, Tripping, used which may contain error for similar [...] 05/30/18417 Date of Service: 05/30/18416 Status: Signed [employer]stabout Crew Leader: Nandini Robertson RN (Registered Nurse) Pt did well overnight. VSS. Chart review completed. Carolina Cantor, Medical Student - 05/29/2018 7:56 PM PDT Progress Notes by Carolina Mahmood DO at 05/29/181955 Author: Carolina Mahmood DO Service: Cardiology Author Type: Physician Filed: 05/29/182014 Date of Service: 05/29/181955 Status: Signed [employer]stabout Crew Leader: Carolina Mahmood DO (Physician) [facility]: Cardiology Progress Note Hospital Day: [...] 05/29/181742 Date of Service: 05/29/181739 Status: Signed [employer]stabout Crew Leader: Flaco Can RN (Registered Nurse) Pt VSS. [...] Service: Hospitalist Author Type: Physician Filed: 05/29/18 2731 Date of Service: 05/29/181342 Status: Signed [employer]stabout Crew Leader: Anthony Figueroa MD (Physician) Hospitalist Progress Note Dara Louise 23 y.o. [id number] female [facility] Day: LOS: 3 days Patient Summary: [...] Value Units Date/Time Lactate dehydrogenase, body fluid [[id number]] Collected: 05/29/18 125 Specimen: Body Fluid from Pleural, Right Updated: 05/29/18 1315 Cholesterol, body fluid [[id number]] Collected: 05/29/18 125 Specimen: Body Fluid from Pleural, Right Updated: 05/29/18 1315 Gram stain [[id number]] Collected: 05/29/18 125 Specimen: Sputum from OTHR-w source desc (F6) Updated: 05/29/18 1309 Sputum culture [[id number]] Collected: 05/27/182014 Specimen: Sputum from Sputum Updated: 05/29/18 0947 Specimen Description SPUTUM GRAM STAIN LESS THAN 10 WBCS/LPF GRAM STAIN LESS THAN 10 SEC/LPF GRAM STAIN NO ORGANISMS SEEN CULTURE 1+ NORMAL UPPER RESPIRATORY ALESSANDRO HIV 1/2 Ab reflex [[id number]] Collected: 05/28/18 1236 Specimen: Blood Updated: 05/29/18 0942 HIV1/HIV2 NON REACTIVE Protime-INR [[id number]] Collected: 05/29/1852 Specimen: Blood Updated: 05/29/1840 INR 1.5 APTT [[id number]] Collected: 05/29/1852 Specimen: Blood Updated: 05/29/1840 APTT 29 seconds Culture, Body Fluid [[id number]] Collected: 05/26/18 1513 Specimen: Other from Ascites Fluid Updated: 05/29/18 0920 Specimen Description ASCITES FLUID GRAM STAIN STAIN PERFORMED ON CYTOSPIN GRAM STAIN WBC'S SEEN GRAM STAIN NO EPITHELIAL CELLS SEEN GRAM STAIN NO ORGANISMS SEEN CULTURE NO GROWTH 3 DAYS Culture, Body Fluid [[id number]] Collected: 05/26/18 1412 Specimen: Body Fluid from Pleural Fluid Updated: 05/29/18917 Specimen Description PLEURAL FLUID CULTURE NO GROWTH 3 DAYS Comprehensive metabolic panel [[id number]] (Abnormal) Collected: 05/29/18456 Specimen: Blood Updated: 05/29/18615 [...] mL/min/1.73m2 CBC W/Auto Diff (Reflex to Manual) [[id number]] (Abnormal) Collected: 05/29/18456 Specimen: Blood Updated: 05/29/18612 [...] 0.05 K/uL MORPHOLOGY 2+ hCG, serum, qualitative [[id number]] Collected: 05/28/18922 Specimen: Blood Updated: 05/28/181949 TEST,SERUM NEGATIVE C-reactive protein [[id number]] (Abnormal) Collected: 05/28/18922 Specimen: Blood Updated: 05/28/181940 CRP 5.1 (H) mg/dL Sedimentation rate, automated [[id number]] Collected: 05/28/18922 Specimen: Blood Updated: 05/28/18 1734 ESR 2 mm/Hr Hepatitis panel,acute [[id number]] Collected: 05/28/18 1236 Specimen: Blood Updated: 05/28/18 1650 HAV AB,IGM NON REACTIVE HEP B SURFACE AG NON REACTIVE ANTI HEP B CORE,IGM NON REACTIVE HEPATITIS C NON REACTIVE HEPATITIS INTERP No serologic evidence of HAV, HBV, or HCV infection. Troponin I [[id number]] Collected: 05/28/18922 Specimen: Blood Updated: 05/28/18 143 TROPONIN I 0.034 ng/mL Troponin I [[id number]] Collected: 05/28/18 1359 Specimen: Blood Updated: 05/28/18 143 TROPONIN I 0.037 ng/mL Renal function panel [[id number]] (Abnormal) Collected: 05/28/18 1209 Specimen: Blood from Blood Updated: 05/28/18 1302 SODIUM 141 mmol/L POTASSIUM 4.3 mmol/L CHLORIDE 101 mmol/L CO2 29 mmol/L ANION GAP AGAP 15 mmol/L GLUCOSE 78 mg/dL BUN 43 (H) mg/dL CREATININE 7.97 (H) mg/dL CALCIUM 9.1 mg/dL Albumin 3.6 g/dL PHOSPHORUS 6.3 (H) mg/dL EGFR 6 (L) mL/min/1.73m2 CBC W/Auto Diff (Reflex to Manual) [[id number]] (Abnormal) Collected: 05/28/18922 Specimen: Blood Updated: 05/28/18 [...] 0.05 K/uL MORPHOLOGY 1+ Comprehensive metabolic panel [[id number]] (Abnormal) Collected: 05/28/18922 Specimen: Blood Updated: 05/28/18 [...] (H) U/L EGFR 6 (L) mL/min/1.73m2 TSH [[id number]] Collected: 05/28/18922 Specimen: Blood Updated: 05/28/18 1210 TSH 1.270 uIU/mL Pathologist consult [[id number]] Collected: 05/26/18 1412 Updated: 05/28/18 1113 Pathologist Consult -- Hepatitis panel, chronic [[id number]] (Abnormal) Collected: 05/27/18 1758 Updated: 05/27/18 203 Hep A Total Ab REACTIVE (A) HEP B SURFACE AG NON REACTIVE HEP B CORE AB,TOTAL NON REACTIVE HEP B SURFACE ANTIBODY 3.27 (H) IV HEPATITIS C NON REACTIVE HEPATITIS INTERP Current or past HAV infection. Past HBV infection or vaccination. No ser ologic evidence of HCV infection. CBC w/auto diff (reflex to manual) [[id number]] (Abnormal) Collected: 05/27/18 0425 Specimen: Blood Updated: [...] K/uL MORPHOLOGY 2+ Platelet Estimate DECREASED Phosphorus [[id number]] (Abnormal) Collected: 05/27/18424 Specimen: Blood Updated: 05/27/18628 PHOSPHORUS 8.0 (H) mg/dL Basic Metabolic Panel [[id number]] (Abnormal) Collected: 05/27/18424 Specimen: Blood Updated: 05/27/18628 SODIUM 135 mmol/L POTASSIUM 5.9 (H) mmol/L CHLORIDE 96 (L) mmol/L CO2 25 mmol/L ANION GAP AGAP 20 mmol/L GLUCOSE 74 mg/dL BUN 51 (H) mg/dL CREATININE 9.2 (H) mg/dL BUN/CREAT 6 CALCIUM 9.4 mg/dL EGFR 5 (L) mL/min/1.73m2 Magnesium [[id number]] (Abnormal) Collected: 05/27/18424 Specimen: Blood Updated: 05/27/18628 MAGNESIUM 2.7 (H) mg/dL Brain natriuretic peptide [[id number]] (Abnormal) Collected: 05/27/18424 Specimen: Blood Updated: 05/27/1846 BRAIN NATRIURETIC PEPTIDE 1,153.92 (H) pg/mL Respiratory Filmarray [[id number]] (Abnormal) Collected: 05/26/181805 Specimen: Nasopharynx/Oropharynx Updated: 05/26/182141 [...] performed by Molecular Methodology MRSA by PCR [[id number]] Collected: 05/26/181805 Specimen: Nasopharyngeal from Nares(Nose) Updated: 05/26/182025 SOURCE NARES(NOSE) MRSA PCR NEGATIVE Procalcitonin [[id number]] (Abnormal) Collected: 05/26/181726 Updated: 03/23/19 1839 PROCALCITONIN 0.76 (H) ng/mL Albumin, Body Fluid [[id number]] Collected: 05/26/181411 Specimen: Body Fluid from Lung, Right Lower Lobe Updated: 05/26/18 172 FLUID ALBUMIN 2.3 g/dL Total Protein, Body Fluid [[id number]] Collected: 05/26/181411 Specimen: Body Fluid from Lung, Right Lower Lobe Updated: 05/26/18 172 FLUID TOTAL PROTEIN 4.2 g/dL FLUID TP SOURCE PLEURAL FLUID Cell count, Body Fluid [[id number]] Collected: 05/26/181411 Specimen: Body Fluid from Lung, Right Lower Lobe Updated: 05/26/18 170 FLUID TYPE PLEURAL FLUID COLOR SAMMIE APPEARANCE CLOUDY RBC'S 3,000 /mm3 TOTAL NUCLEATED CELLS 253 /mm3 NEUTROPHILS 22 % LYMPHOCYTES 8 % MONOCYTES/MACROPHAGES 65 % Mesothelial Cells 5 % CELLS COUNTED 100 pH, Body Fluid [[id number]] Collected: 05/26/181411 Specimen: Body Fluid from Lung, [...] 17. The mitral valve is normal. 18. Jlae-ga-gqqjnkwe eccentric mitral regurgitation i s present. 19. [...] mitral valve is normal. Mitral Kait ve: Whrs-rk-lfvckwno eccentric mitral regurgitation is present. Tricuspid Valve: [...] maxP.08 mmHg TR Vmax: 2.7 4 m/s Public Health Microbiologist: MOO Authenticated by: Robel Yusuf MD Report [...] 17. The mitral valve is normal. 18. Gynn-mo-vtdad ate eccentric mitral regurgitation is present. 19. [...] imbalance Acute systolic CHF (congestive heart failure) ([facility]) Transaminitis ASSESSMENT & PLAN Bilateral pleural [...] Service: Nephrology Author Type: Physician Filed: 05/31/18 1678 Date of Service: 05/29/18725 Status: Addendum [employer]stabout Crew Leader: René Anguiano MD (Physician) Related Notes: Original Note by KRISHNA Waters (Nurse Practitioner) filed at 05/05 08/22 6426 Hospital Problem List: Active Problems: ESRD on [...] put on "an antibiotic" for pneumonia at [facility] ED. Was throwing up & could [...] the prelim submitted orders, MWF No acute BOOM WORKER indication ESTEFANY as indicated with HD Protein [...] 0555 Date of Service: 05/29/18553 Status: Signed [employer]stabout Crew Leader: Vernell Weston RN (Registered Nurse) End of [...] 05/28/181940 Date of Service: 05/28/181939 Status: Signed [employer]stabout Crew Leader: Saundra Hartley RN (Registered Nurse) No acute [...] 05/28/181721 Date of Service: 05/28/181720 Status: Signed [employer]about Crew Leader: Cayden Caceres RN (Registered Nurse) UF 2 L with HD today. nthony Figueroa MD - 05/28/2018 12:26 PM PDTFormatting of this note might be different from the or iginal. Progress Notes by Anthony Figueroa MD at 05/28/18 1226 Author: Anthony Figueroa MD Service: Hospitalist Author Type: Physician Filed: 05/28/18 1233 Date of Service: 05/28/18 1226 Status: Signed [employer]stabout Crew Leader: Anthony Figueroa MD (Physician) Hospitalist Progress Note Dara Louise 23 y.o. [id number] female [facility] Day: LOS: 2 days Patient Summary: [...] Component Value Units Date/Time Culture, Body Fluid [[id number]] Collected: 05/26/18 3217 Specimen: Other from Ascites Fluid Updated: 05/28/18 1225 Specimen Description ASCITES FLUID GRAM STAIN STAIN PERFORMED ON CYTOSPIN GRAM STAIN WBC'S SEEN GRAM STAIN NO EPITHELIAL CELLS SEEN GRAM STAIN NO ORGANISMS SEEN CULTURE NO GROWTH 2 DAYS Culture, Body Fluid [[id number]] Collected: 05/26/18 141 Specimen: Body Fluid from Pleural Fluid Updated: 05/28/18 1223 Specimen Description PLEURAL FLUID CULTURE NO GROWTH 2 DAYS Comprehensive metabolic panel [[id number]] (Abnormal) Collected: 05/28/18922 Specimen: Blood Updated: 05/28/18 [...] (H) U/L EGFR 6 (L) mL/min/1.73m2 TSH [[id number]] Collected: 05/28/18922 Specimen: Blood Updated: 05/28/18 1210 TSH 1.270 uIU/mL Pathologist consult [[id number]] Collected: 05/26/18 141 Updated: 05/28/18 1113 Pathologist Consult -- Troponin I [[id number]] Collected: 05/28/18922 Specimen: Blood Updated: 05/28/18 1055 CBC W/Auto Diff (Reflex to Manual) [[id number]] Collected: 05/28/18922 Specimen: Blood Updated: 05/28/18 0939 Sputum culture [[id number]] Collected: 05/27/182014 Specimen: Sputum from Sputum Updated: 05/28/18902 Specimen Description SPUTUM GRAM STAIN LESS THAN 10 WBCS/LPF GRAM STAIN LESS THAN 10 SEC/LPF GRAM STAIN NO ORGANISMS SEEN CULTURE CULTURE IN PROGRESS Hepatitis panel, chronic [[id number]] (Abnormal) Collected: 05/27/181757 Updated: 05/27/182030 Hep A Total Ab REACTIVE (A) HEP B SURFACE AG NON REACTIVE HEP B CORE AB,TOTAL NON REACTIVE HEP B SURFACE ANTIBODY 3.27 (H) IV HEPATITIS C NON REACTIVE HEPATITIS INTERP Current or past HAV infection. Past HBV infection or vaccination. No ser ologic evidence of HCV infection. CBC w/auto diff (reflex to manual) [[id number]] (Abnormal) Collected: 05/27/18424 Specimen: Blood Updated: 05/27/18 [...] K/uL MORPHOLOGY 2+ Platelet Estimate DECREASED Phosphorus [[id number]] (Abnormal) Collected: 05/27/18424 Specimen: Blood Updated: 05/27/18 0629 PHOSPHORUS 8.0 (H) mg/dL Basic Metabolic Panel [[id number]] (Abnormal) Collected: 05/27/18424 Specimen: Blood Updated: 05/27/1829 SODIUM 135 mmol/L POTASSIUM 5.9 (H) mmol/L CHLORIDE 96 (L) mmol/L CO2 25 mmol/L ANION GAP AGAP 20 mmol/L GLUCOSE 74 mg/dL BUN 51 (H) mg/dL CREATININE 9.2 (H) mg/dL BUN/CREAT 6 CALCIUM 9.4 mg/dL EGFR 5 (L) mL/min/1.73m2 Magnesium [[id number]] (Abnormal) Collected: 05/27/18424 Specimen: Blood Updated: 05/27/18 0629 MAGNESIUM 2.7 (H) mg/dL Brain natriuretic peptide [[id number]] (Abnormal) Collected: 05/27/18424 Specimen: Blood Updated: 05/27/18 0546 BRAIN NATRIURETIC PEPTIDE 1,153.92 (H) pg/mL Respiratory Filmarray [[id number]] (Abnormal) Collected: 05/26/181805 Specimen: Nasopharynx/Oropharynx Updated: 05/26/182141 [...] performed by Molecular Methodology MRSA by PCR [[id number]] Collected: 05/26/18 180 Specimen: Nasopharyngeal from Nares(Nose) Updated: 05/26/182025 SOURCE NARES(NOSE) MRSA PCR NEGATIVE Procalcitonin [[id number]] (Abnormal) Collected: 05/26/18 1727 Updated: 05/26/18 1839 PROCALCITONIN 0.76 (H) ng/mL Albumin, Body Fluid [[id number]] Collected: 05/26/18 1412 Specimen: Body Fluid from Lung, Right Lower Lobe Updated: 05/26/18 1729 FLUID ALBUMIN 2.3 g/dL Total Protein, Body Fluid [[id number]] Collected: 05/26/18 1412 Specimen: Body Fluid from Lung, Right Lower Lobe Updated: 05/26/18 1729 FLUID TOTAL PROTEIN 4.2 g/dL FLUID TP SOURCE PLEURAL FLUID Cell count, Body Fluid [[id number]] Collected: 05/26/18 141 Specimen: Body Fluid from Lung, Right Lower Lobe Updated: 05/26/18 1708 FLUID TYPE PLEURAL FLUID COLOR SAMMIE APPEARANCE CLOUDY RBC'S 3,000 /mm3 TOTAL NUCLEATED CELLS 253 /mm3 NEUTROPHILS 22 % LYMPHOCYTES 8 % MONOCYTES/MACROPHAGES 65 % Mesothelial Cells 5 % CELLS COUNTED 100 pH, Body Fluid [[id number]] Collected: 05/26/18 1412 Specimen: Body Fluid from Lung, Right Lower Lobe Updated: 05/26/18 1508 FLUID PH 7.45 Procalcitonin [[id number]] (Abnormal) Collected: 05/26/18 1214 Updated: 05/26/18 1330 PROCALCITONIN 0.56 (H) ng/mL Cardiac Panel [[id number]] (Abnormal) Collected: 05/26/18 1214 Updated: 05/26/18 1312 [...] ng/mL CK-MB Index 2.7 Brain natriuretic peptide [[id number]] (Abnormal) Collected: 05/26/18 1214 Updated: 05/26/18 1254 [...] radiologist report and is used for image LiquidText Echo Cardiac Adult Complete Result Date: 05/27/2018 [...] 17. The mitral valve is normal. 18. Zeri-xl-wrsminye eccentric mitral regurgitation i s present. 19. [...] mitral valve is normal. Mitral Kait ve: Mkhk-ou-qfcwmqbg eccentric mitral regurgitation is present. Tricuspid Valve: [...] maxP.08 mmHg TR Vmax: 2.7 4 m/s Public Health Microbiologist: MOO Authenticated by: Robel Yusuf MD Report [...] 17. The mitral valve is normal. 18. Qoki-ow-pjorc ate eccentric mitral regurgitation is present. 19. [...] 05/28/1808 Date of Service: 05/28/18703 Status: Signed [employer]st[employer] Crew Leader: Timothy Butler RN (Registered Nurse) Pt A&Ox4 [...] 05/27/181957 Date of Service: 05/27/181954 Status: Signed [employer]st[employer] Crew Leader: Vernell Weston RN (Registered Nurse) Called into [...] 05/27/181924 Date of Service: 05/27/181922 Status: Signed [employer] Crew Leader: Saundra Hartley RN (Registered Nurse) Pt has [...] Author: DORON Ashby Service: (none) Author Type: Medart Operator Filed: 05/27/181533 Date of Service: 05/27/181529 Status: Signed [facility]st[facility] Crew Leader: DORON Ashby (Medart Operator) 05/27/181529 Discharge Planning Evaluation Admitting Diagnosis [...] Patient/Family concerns No Met with Dara Louise ([phone]) and discussed discharge planning. Pt is a 23 y.o., female who resides alone in [place], [place]. Pt states that she has supportive family and frie nds. Pt's mother lives 50 miles away; pt's sister lives 15 minutes away. Pt is independent and does not have a caregiver. Patient's PCP is: TIEN NICHOLSON Patient's insurance: Medicare and Medicaid Coverage concerns: None Medication coverage/concerns: None Community resources utilized / needed: Pt does outpatient dialysis at [facility] on Monday, Monday and Monday Assistance [...] Service: Hospitalist Author Type: Physician Filed: 05/27/18 4359 Date of Service: 05/27/18 1325 Status: Signed [facility]stabout Crew Leader: Anthony Figueroa MD (Physician) Hospitalist Progress Note Dara Lundberg Shiraz 23 y.o. [phone] [id number] female [facility] Day: LOS: 1 day Patient Summary: [...] Date/Time CBC w/auto diff (reflex to manual) [[id number]] (Abnormal) Collected: 05/27/18424 Specimen: Blood Updated: 05/27/18710 [...] K/uL MORPHOLOGY 2+ Platelet Estimate DECREASED Phosphorus [[id number]] (Abnormal) Collected: 05/27/18424 Specimen: Blood Updated: 05/27/18628 PHOSPHORUS 8.0 (H) mg/dL Basic Metabolic Panel [[id number]] (Abnormal) Collected: 05/27/18424 Specimen: Blood Updated: 05/27/18628 SODIUM 135 mmol/L POTASSIUM 5.9 (H) mmol/L CHLORIDE 96 (L) mmol/L CO2 25 mmol/L ANION GAP AGAP 20 mmol/L GLUCOSE 74 mg/dL BUN 51 (H) mg/dL CREATININE 9.2 (H) mg/dL BUN/CREAT 6 CALCIUM 9.4 mg/dL EGFR 5 (L) mL/min/1.73m2 Magnesium [[id number]] (Abnormal) Collected: 05/27/18424 Specimen: Blood Updated: 05/27/18 0629 MAGNESIUM 2.7 (H) mg/dL Brain natriuretic peptide [[id number]] (Abnormal) Collected: 05/27/18424 Specimen: Blood Updated: 05/27/18 0546 BRAIN NATRIURETIC PEPTIDE 1,153.92 (H) pg/mL Respiratory Filmarray [[id number]] (Abnormal) Collected: 05/26/181805 Specimen: Nasopharynx/Oropharynx Updated: 05/26/182141 [...] performed by Molecular Methodology MRSA by PCR [[id number]] Collected: 05/26/181805 Specimen: Nasopharyngeal from Nares(Nose) Updated: 05/26/182025 SOURCE NARES(NOSE) MRSA PCR NEGATIVE Procalcitonin [[id number]] (Abnormal) Collected: 05/26/18 1727 Updated: 05/26/18 183 PROCALCITONIN 0.76 (H) ng/mL Culture, Body Fluid [[id number]] Collected: 05/26/18 141 Specimen: Body Fluid from Pleural Fluid Updated: 05/26/18 181 Pathologist consult [[id number]] Collected: 05/26/181411 Updated: 05/26/18 174 Albumin, Body Fluid [[id number]] Collected: 05/26/181411 Specimen: Body Fluid from Lung, Right Lower Lobe Updated: 05/26/18 172 FLUID ALBUMIN 2.3 g/dL Total Protein, Body Fluid [[id number]] Collected: 05/26/18 1412 Specimen: Body Fluid from Lung, Right Lower Lobe Updated: 05/26/18 1729 FLUID TOTAL PROTEIN 4.2 g/dL FLUID TP SOURCE PLEURAL FLUID Cell count, Body Fluid [[id number]] Collected: 05/26/18 1412 Specimen: Body Fluid from Lung, Right Lower Lobe Updated: 05/26/18 1708 FLUID TYPE PLEURAL FLUID COLOR SAMMIE APPEARANCE CLOUDY RBC'S 3,000 /mm3 TOTAL NUCLEATED CELLS 253 /mm3 NEUTROPHILS 22 % LYMPHOCYTES 8 % MONOCYTES/MACROPHAGES 65 % Mesothelial Cells 5 % CELLS COUNTED 100 Culture, Body Fluid [[id number]] Collected: 05/26/18 1513 Specimen: Other from Ascites Fluid Updated: 05/26/18 1631 Specimen Description ASCITES FLUID GRAM STAIN STAIN PERFORMED ON CYTOSPIN GRAM STAIN WBC'S SEEN GRAM STAIN NO EPITHELIAL CELLS SEEN GRAM STAIN NO ORGANISMS SEEN CULTURE PENDING pH, Body Fluid [[id number]] Collected: 05/26/18 141 Specimen: Body Fluid from Lung, Right Lower Lobe Updated: 05/26/18 1508 FLUID PH 7.45 Procalcitonin [[id number]] (Abnormal) Collected: 05/26/18 1214 Updated: 05/26/18 1330 PROCALCITONIN 0.56 (H) ng/mL Cardiac Panel [[id number]] (Abnormal) Collected: 05/26/18 1214 Updated: 05/26/18 1312 [...] ng/mL CK-MB Index 2.7 Brain natriuretic peptide [[id number]] (Abnormal) Collected: 05/26/18 1214 Updated: 05/26/18 1254 [...] radiologist report and is used for image [employer] [place] only PROBLEM LIST Active Problems: ESRD on [...] 05/27/18546 Date of Service: 05/27/18543 Status: Signed [facility]stabout Crew Leader: Vernell Weston RN (Registered Nurse) End of [...] 05/26/181950 Date of Service: 05/26/181947 Status: Signed [employer]st[facility] Crew Leader: Saundra Hartley, RN (Registered Nurse) Pt complained [...] 05/26/181804 Date of Service: 05/26/181804 Status: Signed [employer]stabout Crew Leader: Jae Gutierres RPH (Pharmacist) Renal Dosing Monitoring: [...] E | | | | | | [place] [address] | | | | | | [phone] | | | | | | | [...] | | | | | | at [facility], [address] | | | | | | [facility], | | | | | | [place] [address] | | | | | |Testing performed at [facility], [address] [facility], [place] [address] | | | | | | | [...] [place], | | | | | | [place], [place] [address] | | | | + + + [...] | | | | | | at [facility], [address] | | | | | | [facility], | | | | | | [place] [address] | | | | | |Testing performed at [facility], [address] [facility], [place] [address] | | | | | | | [...] | | | | | performed at [facility], [address] | | | | | | [facility] [place], | | | | | | [place] [address] | | | | + + + [...] | | | | | | at [facility], [address] | | | | | | [facility], | | | | | | [place] [address] | | | | | |Testing performed at [facility], [address] [facility], [place] [address] | | | | | | | [...] | | | | | performed at [facility], [address] | | | | | | [address] [facility], | | | | | | [place] [address] | | | | + + + [...] | EXTERNAL LAB | | not a stock mover validated sample type for this method. No reference | | | ranges have been established. Testing performed at [facility], [address] | | | [place] [address] | | + + + + +---------+ [...] EXTERNAL LAB | | is not a stock mover validated sample type for this method. No | | | reference ranges have been established. Testing performed at [facility], | | | [address] [facility] [place] [address] | | + + + + +---------+ [...] | | space is punctured with an 8-Nicaraguan thoracentesis catheter. Fluid is | | | [...] the pleural space is punctured with an 8-Nicaraguan | | thoracentesis catheter. Fluid is aspirated [...] | | | Patient | performed at [facility] [place] [place];[address] | | LAB | | | | [address];[place], [place] | | | | | | [address] | | | | + + [...] | | | | | performed at [facility] [place] [place];[facility] | | | | | | [address];[place], [place] | | | | | | [address] | | | | + + + [...] | | | | | | at [facility], [address] | | | | | | [facility], | | | | | | [place] [address] | | | | | |Testing performed at [facility], [address] [facility] [place] [address] | | | | | | | [...] | | | | | performed at [facility], [address] | | | | | | [address], | | | | | | [place] [address] | | | | + + + [...] at | | | | | | [facility] [place] [place];[address] [place] [address] | | | | | | [facility];[place] [address] | | | | + + + [...] at | | | | | | [facility], [address] [facility] | | | | | | [place] | | | | | | [address] | | | | + + + [...] | | | | | performed at [facility], [address] | | | | | | [address] [facility], | | | | | | [place] [address] | | | | + + + [...] | | | | | performed at [facility] [place] [place];[address] | | | | | | [address];[place], [place] | | | | | | [address] | | | | + + + [...] Medical Center environment | EXTERNAL LAB | + + [...] at | | | | | | [facility] [place] [place];[address] [facility] | | | | | | Bl;[place] [address] | | | | + + + [...] | | | | | | [place] [address] | | | | + + + [...] | | | | | | at [facility], [address] | | | | | | [address] [employer], | | | | | | [place] [address] | | | | | |Testing performed at [facility], [address] [place] [address] | | | | | | | [...] | | | | | [place] [address] | | | | + + + [...] | | | QUALITATIVE | performed at [facility], [address] | | LAB | | | | [address], | | | | | | [place] [address] | | | | + + + [...] EXTERNAL | | | | performed at [facility], [address] | uIU/mL | LAB | | | | [address] [place], | | | | | | [place] [address] | | | | + + + [...] | | | | | performed at [facility], [address] | | | | | | [facility], | | | | | | [place] [address] | | | | + + + [...] | | | preparation was performed by [employer], [address] [place] [address] | | | [place] [address] (Line Maintenance: Matt Claudio D.O.; | | | CLIA#: [id number]). Professional interpretation was performed by | | | [employer], [facility], [address] [place] [address], | | | [place] [address] (Line Maintenance: Daniel Larson M.D.; | | | CLIA#: [id number]).6 Diagnostician: Marie BROOKS ([facility]) | | | [employer] Farm[employer] Diagnostician: Anahy Da Silva MD Pathologist | [...] at | | | | | | [facility], [address] | | | | | | [place] | | | | | | [address] | | | | + + + [...] valve is normal. 18. | | | Xdnm-qe-yhhwfijt eccentric mitral regurgitation is present. 19. | [...] valve is normal. 18. | | | Swcr-tr-xnmyiofc eccentric mitral regurgitation is present. 19. | [...] is | | | normal. Mitral Valve: Rxfv-ee-zzhsbcvj eccentric mitral regurgitation | | | is [...] TR Vmax: 2.74 m/s | | | Public Health Microbiologist: MOO Authenticated by: Robel Yusuf MD Report [...] aortic stenosis.17. The mitral valve is normal.18. Qzmw-ra-lvhllrbn | | eccentric mitral regurgitation is present.19. [...] | | arch are normal.26. No mass vziqetbbeo93. No clot visualized FINDINGS--------ECG | | rhythm: [...] mitral valve is normal.Mitral Valve: | | Itgm-zd-iqazmrfq eccentric mitral regurgitation is present.Tricuspid Valve: Severe [...] mlLAESV Index (A-L): 30.43 ml/m2LAAs A2C: 20.97 [id number] | | A-L A2C: 65.71 mlLALs A2C: 5.68 cmLAAs A4C: 19.94 [id number] A-L A4C: 60.20 mlLALs | | A4C: 5.60 cmTAPSE: 1.58 cmHR: 79.62 BPMAV maxP.06 mmHgAV meanP.71 | | mmHgAV Vmax: 1.23 m/Elizabeth Vmean: 0.92 m/Elizabeth VTI: 20.07 cmAVA Vmax: 1.74 cm2AVA | | (VTI): 1.93 uh9ETKD Vmax: 0.00 cm2/m2AVAI (VTI): 0.00 cm2/m2LVOT maxP.22 [...] maxP.08 | | mmHgTR Vmax: 2.74 m/s Public Health Microbiologist: Brodyted by: Robel Palacios | | Date/Time: [...] The mitral valve is | | normal.18. Xymu-qy-dxmfqyjz eccentric mitral regurgitation is present.19. Severe | [...] |TR Vmax: 2.74 m/s | | | |Public Health Microbiologist: MOO | |Authenticated by: Robel Yusuf MD [...] The mitral valve is normal. | |18. Zruj-bf-iljflfmt eccentric mitral regurgitation is present. | |19. [...] | | LAB | | | | [facility] [place] [place];[address] | | | | | | [place] [address] | | | | + + + [...] EXTERNAL | | | | performed at [facility], [address] | | LAB | | | | [address] [place], | | | | | | [place] [address] | | | | + + + [...] | | LAB | | | | [facility] [place] [place];[facility] [address] | | | | | | [address];[place] [address] | | | | + + + [...] EXTERNAL | | | | performed at [facility], [address] | | LAB | | | | [address] [place], | | | | | | [place] [address] | | | | + + + [...] | | | | | | MDRD IDMN traceable | | | | | | equation.Testing | | | | | | performed at [facility], [address] | | | | | | [facility], | | | | | | [place] [address] | | | | + + + [...] Methodology | | | Testing performed at [facility], [address] [place], [place] | | | [address] | | + + + + +---------+ [...] NEGATIVE Testing | | | performed at [facility] [place] [place];[address] [place] [address];[place] [address] | | + + + + +---------+ [...] | | | | | | at [facility] [place] [place];[address] [place] [address] | | | | | | [facility];[place] [address] | | | | + + + [...] AT 1702: | | | PREVIOUSLY REPORTED <[id number] TOTAL NUCLEATED CELLS | | | 253 CORRECTED RESULTS CALLED TO DR. GLASS IN ED AT | | | 1705 BY LGJ CORRECTED ON 05/26 AT 1702: PREVIOUSLY REPORTED 374 | | | NEUTROPHILS 22 | | | LYMPHOCYTES 8 | | | MONOCYTES/MACROPHAGES 65 Mesothelial | | | Cells 5 CELLS COUNTED | | | 100 Testing performed at [facility] [place] [place];[address] | | | [address] [facility];[place] [address] | | + + + + +---------+ [...] | EXTERNAL LAB | | not a stock mover validated sample type for this method. No reference | | | ranges have been established. Testing performed at [facility], [address] | | | [place] [address] FLUID TP SOURCE | | | PLEURAL FLUID Testing performed at [facility] [place] [place];[address] | | | [place] [address] | | + + + + +---------+ [...] | EXTERNAL LAB | | not a stock mover validated sample type for this method. No | | | reference ranges have been established. Testing performed at [facility], | | | [address] [place] [address] | | + + + + +---------+ [...] EXTERNAL LAB | | Testing performed at [facility] [place] [place];[address] [place] [address];[place] [address] | | + + + + +---------+ [...] | | | | | | at [facility] [place] [place];[address] [place] [address] | | | | | | [facility];[place] [address] | | | | + + + [...] | | | | | | at [facility] [place] [place];[address] [place] [address] | | | | | | Bl;[place] [address] | | | | + + + [...] | | LAB | | | | [facility] [place] [place];[address] | | | | | | [place] [address] | | | | + + + [...]
--- OUTSIDE RECORDS SUMMARY | ~2019-03-08 | XMS | Encounter Summary ---
Demographics + + + | Address | [address] | | | [place] [address] | + + + | Home Phone [...] | | | | | [place] [address] | | + + + + + | Thania Mallory | ECON | [address] | | | | | [place] [address] | | + + + + + | Deidra Weldon | ECON | [address] | | | | | [place] | | | | | [address] | | + + + + + Care Team Providers + +------+ + | Care Crib Clerk Name | Role | Phone | [...] | 2013 | | Transplant Services | BAGGER AND STOCK HANDLER HELPER [place], [place] | Update | | | | [address] | [address] | | | | | [place] [place], | | | | | | [place] [address] | | | | | | [phone] | | | +--------+ + + + [...] | | | | | | [place], [place] | | | | | | [address] | | | | | | [phone] | | | | | | | | +--------+ + + + + documented as of this encounter Visit Diagnoses Not on filedocumented in this encounter"
--- OUTSIDE RECORDS SUMMARY | ~2019-03-08 | XMS | Encounter Summary ---
Demographics + + + | Address | [address] | | | [place] [address] | + + + | Home Phone [...] | | | | | [place] [address] | | + + + + + | Thania Mallory | ECON | [address] | | | | | [place] [address] | | + + + + + | Deidra Weldon | ECON | [address] | | | | | [place] | | | | | [address] | | + + + + + Care Team Providers + +------+ + | Care Elementary School Counselor Name | Role | Phone | [...] - | | | | [address] [place], | [place], [place] | psychosocial | | | | [place] [address] | [address] | readiness update) | | | | [phone] | | | +--------+ + + + [...] Denise | | | | | | [place], [place] | | | | | | [address] | | | | | | [phone] | | | | | | | | +--------+ + + + + documented as of this encounter Visit Diagnoses Not on filedocumented in this encounter"
--- OUTSIDE RECORDS SUMMARY | ~2019-03-08 | XMS | Encounter Summary ---
Demographics + + + | Address | [address] | | | [place] [address] | + + + | Home Phone [...] + | Author | [facility] | | | and Josephana | + + + | Organization | [facility] [...] Providers + +------+ + | Care Management Aide Name | Role | Phone | [...] | stage renal | [address] | [address] [place] [address] | | | | | disease) | [address] | [place] | | | | | (HCC) | [address] | [address] [place] | | | | | Anemia in | [place], [place] | [place], [place] | | | | | ESRD | [address] | [address] Phone: | | | | | (end-stage | Phone: | [phone] | | | | | renal | [phone] | Fax: | | | | | disease) | Fax: | [phone] | | | | | ([facility]) | [phone] | | | | | | Procedures [...] | | [address] | [place] | (Primary Dx) | | | | [place], [place] | [place], [place] | | | | | [address] | [address] | | | | | [phone] | | | +--------+ + + + [...] charge nurse, Elisabeth Quijano RN, and [facility] medical student Yefri Bean MS III, about lifestyle modification, compliance, and her potential risk for increased her vascular morbidity, mortality. 2. 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 I discussed this wi th the renal DENTAL CERAMIST. 3. Monthly lab was reviewed with the patient. 4. Long-term prognosis remains poor, due to her poor to no insight into her chronic health conditions, or health maintenance. : Wheelwright Fina Alonso MD, PhD documented in thi [...] | | | | | [place] [address] | | | | | | [phone] | | | | | | | | +--------+---------+ + + + documented as of this encounter Visit Diagnoses + + | Diagnosis | + + | ESRD (end stage renal disease) (HCC) - Primary End stage renal disease | + + documented in this encounter"
--- OUTSIDE RECORDS SUMMARY | ~2019-03-08 | XMS | Encounter Summary ---
Demographics + + + | Address | [address] | | | [place] [address] | + + + | Home Phone [...] | | | | | [place] [address] | | + + + + + | Thania Mallory | ECON | [address] | | | | | [place] [address] | | + + + + + | Deidra Weldon | ECON | [address] | | | | | [place] | | | | | [address] | | + + + + + Care Team Providers + +------+ + | Care Engine Oiler Name | Role | Phone | [...] Nephrology at | RN [address] [facility] | | | | | [place] | [facility] | | | | | [facility] | [place], [place] | | | | | [address] [place] [address] Dr | [address] | | | | | Mailcode: DCH7 | | | | | | [place] | | | | | | [place], [place] | | | | | | [address] | | | | | | [phone] | | | +--------+ + + + [...] [place] | | | | | | [address] | | | | | | [phone] | | | | | | | | +--------+ + + + + documented as of this encounter Visit Diagnoses + + | Diagnosis | + + | 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
--- OUTSIDE RECORDS SUMMARY | ~2019-03-08 | XMS | Encounter Summary ---
Demographics + + + | Address | [address] | | | [place] [address] | + + + | Home Phone [...] | | | | | [place] [address] | | + + + + + | Thania Mallory | ECON | [address] | | | | | [place] [address] | | + + + + + | Deidra Weldon | ECON | [address] | | | | | [place] | | | | | [address] | | + + + + + Care Team Providers + +------+ + | Care Day Care Director Name | Role | Phone [...] | | | [address] | [facility] | | | | | [place], | [place], [place] | | | | | [place] [address] | [address] | | | | | [phone] | | | +--------+ + + + [...] [place] | | | | | | [address] | | | | | | [phone] | | | | | | | [...] + + | [facility] - | [address] | [place] | [phone] | | [place] | | | | + + + + + documented in this encounter Visit Diagnoses Not on filedocumented in this encounter"
--- OUTSIDE RECORDS SUMMARY | ~2019-03-08 | XMS | Encounter Summary ---
Demographics + + + | Address | [address] | | | [place] [address] | + + + | Home Phone [...] Author | [facility] | | | and Josephana | + + + | Organization | [facility] | [...] Team Providers + +------+ + | Care Nickel Operator Name | Role | Phone | [...] + + | 01/22/ | Refill | [facility] | Daniela Alejandre | Medication Refill | | 2018 | | CARDIOLOGY GERALD Castellanos Carding Machine Operator | | | | | [address] | | | | | | [place] | | | | | | [address] | | | | | | [phone] | | | +--------+--------+ + + + [...] [address] | | | | | | [place] [address] | | | | | | [phone] | | | | | | | | +--------+---------+ + + + documented as of this encounter Visit Diagnoses Not on filedocumented in this encounter"
--- OUTSIDE RECORDS SUMMARY | ~2019-03-08 | XMS | Encounter Summary ---
Demographics + + + | Address | [address] | | | [place] [address] | + + + | Home Phone [...] | | | | | [place] [address] | | + + + + + | Thania Mallory | ECON | [address] | | | | | [place] [address] | | + + + + + | Deidra Weldon | ECON | [address] | | | | | [place] | | | | | [address] | | + + + + + Care Team Providers + +------+ + | Care Pari Mutuel Ticket Cashier Name | Role | Phone | [...] | | | | | Hospital | [facility] | | | | | | [address] | [place] | | | | | | [address] | [place], [place] | | | | | | [place] | [address] | | | | | | [place] | Phone: | | | | | | [address] | [phone] | | | | | | Phone: | | | | | | | [phone] | | | | | | | Fax: | | | | | | | [phone] | | +--------+--------+ + + + + Encounter Details +--------+---------+ + + + | Date | Type | Department | Care Team | Description | +--------+---------+ + + + | 08/17/ | Office | Specialty Clinics | Sudhakar Joy | Anemia of chronic | | 2016 | Visit | at [facility] [address] | DMD [address] | kidney failure, | | | | [place] Mailcode: | [address] | stage 5 (HCC) | | | | [facility] [place] | [place], [place] | (Primary Dx); HSP | | | | [place], [place] | [address] | (Jada-Schmanueln | | | | [address] | 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 She has collected enough money to get [...] [address] Mail code [facility] [place], [place] [address] documented in this encounter Plan of Treatment +--------+ + + + + | Date | Type | Specialty | Care Team | Description | +--------+ + + + + | 05/04/ | Hospital | Adult Acute Care | El Starr MD | | | 2022 | Encounter | | [address] | | | | | | [place], [place] | | | | | | [address] | | | | | | [phone] | | | | | | | [...]
--- OUTSIDE RECORDS SUMMARY | ~2019-03-08 | XMS | Encounter Summary ---
Demographics + + + | Address | [address] | | | [place] [address] | + + + | Home Phone [...] | | | | | [place] [address] | | + + + + + | Thania Mallory | ECON | [address] | | | | | [place] [address] | | + + + + + | Deidra Weldon | ECON | [address] | | | | | [place] | | | | | [address] | | + + + + + Care Team Providers + +------+ + | Care District Agent Name | Role | Phone | [...] | | [address] | [facility] | | | | | [place], | [place], [place] | | | | | [place] [address] | [address] | | | | | [phone] | | | +--------+ + + + [...] Denise | | | | | | [place], [place] | | | | | | [address] | | | | | | [phone] | | | | | | | [...]
--- OUTSIDE RECORDS SUMMARY | ~2019-03-08 | XMS | Encounter Summary ---
Demographics + + + | Address | [address] | | | [place] [address] | + + + | Home Phone [...] + | Author | [facility] | | | and [place]ana | + + + | Organization | [facility] | | | [...] Providers + +------+ + | Care Bottle Inspector Name | Role | Phone | [...] NEPHROLOGY [address] | M, DO [address] | | | | | [address] | [place] | | | | | [place], [place] | [place], [place] | | | | | [address] | [address] | | | | | [phone] | | | +--------+ + + + [...] of contact with the dialysis staff in home health clinical supervisor on a frequent basis. Outpatient Prescriptions Marked [...] will be rechecked in 2 weeks. : [place] Fina documented in thi s encounter Plan [...] [address] | | | | | | [place] [address] | | | | | | [phone] | | | | | | | | +--------+---------+ + + + documented as of this encounter Visit Diagnoses + + | Diagnosis | + + | ESRD (end stage renal disease) (HCC) - Primary End stage renal disease | + + documented in this encounter"
--- OUTSIDE RECORDS SUMMARY | ~2019-03-08 | XMS | Encounter Summary ---
Demographics + + + | Address | [address] | | | [place] [address] | + + + | Home Phone [...] Author | [facility] | | | and [place]ana | + + + | Organization | [facility] | [...] Providers + +------+ + | Care Manager Transportation Name | Role | Phone | + [...] + + | 12/19/ | Telephone | [facility] | George Torres RN | Congestive Heart | | 2019 | | [address] | | Failure (Reviewed | | | | [place], [place] | | for CHF Quality | | | | [address] | | Measures) | | | | [phone] | | | +--------+ + + + [...] [address] | | | | | | [place] [id number] | | | | | | [phone] | | | | | | | | +--------+---------+ + + + documented as of this encounter Visit Diagnoses Not on filedocumented in this encounter"
--- OUTSIDE RECORDS SUMMARY | ~2019-03-08 | XMS | Encounter Summary ---
Demographics + + + | Address | [address] | | | [place] [address] | + + + | Home Phone [...] | | | | | [place] [address] | | + + + + + | Thania Mallory | ECON | [address] | | | | | [place] [address] | | + + + + + | Deidra Weldon | ECON | [address] | | | | | [place] | | | | | [address] | | + + + + + Care Team Providers + +------+ + | Care Regional Planner Name | Role | Phone | + +------+ + | Shahid Camargo MD | PCP | | + +------+ + Reason for Visit +--------+ + | Reason | Comments | +--------+ + | Other | Requested [id number] | +--------+ + Encounter Details +--------+ + + + + | Date | Type | Department | Care Team | Description | +--------+ + + + + | 11/15/ | Telephone | Clinical | Jesus Edmond, | Other (Requested | | 2012 | | Transplant Services | [address] | [id number]) | | | | [address] | [facility] | | | | | [address] [place], | [place], [place] | | | | | [place] [address] | [address] | | | | | [phone] | [phone] | | | | | | | [...] Denise | | | | | | [place], [place] | | | | | | [address] | | | | | | [phone] | | | | | | | | +--------+ + + + + documented as of this encounter Visit Diagnoses Not on filedocumented in this encounter"
--- OUTSIDE RECORDS SUMMARY | ~2019-03-08 | XMS | Encounter Summary ---
Demographics + + + | Address | [address] | | | [place] [address] | + + + | Home Phone [...] | | | | | [place] [address] | | + + + + + | Thania Mallory | ECON | [address] | | | | | [place] [address] | | + + + + + | Deidra Weldon | ECON | [address] | | | | | [place] | | | | | [address] | | + + + + + [...] Transplant Services | RN [address] [facility] | list) | | | | [address] | [facility] | | | | | [facility], | [place], [place] | | | | | [place] [address] | [address] | | | | | [phone] | | | +--------+ + + + [...] [place] | | | | | | [address] | | | | | | [phone] | | | | | | | | +--------+ + + + + documented as of this encounter Visit Diagnoses Not on filedocumented in this encounter"
--- OUTSIDE RECORDS SUMMARY | ~2019-03-08 | XMS | Encounter Summary ---
Demographics + + + | Address | [address] | | | [place] [address] | + + + | Home Phone [...] | Author | [facility] | | | and [place] | + + + | Organization | [facility] | | | [...] Team Providers + +------+ + | Care Relief Cook Name | Role | Phone | [...] | | | | | malfunction, | [address] | [address] | | | | | initial | [address] [place] | [place], | | | | | encounter | [place], [place] | [place] [address] | | | | | ([facility]) | [address] | Phone: | | | | | | Phone: | [phone] | | | | | | [phone] | Fax: | | | | | | Fax: | [phone] | | | | | | [phone] | | +--------+ + + + + [...] fistula | MD [address] | [address] | | | | | malfunction, | [address] | [place], | | | | | initial | [address] [place] | [place] [address] | | | | | encounter | [place], [place] | Phone: | | | | | ([facility]) | [address] | [phone] | | | | | Procedures | Phone: | Fax: | | | | | IR Procedure | [phone] | [phone] | | | | | DC PLACE | Fax: | | | | | | NEEDLE/CATH | [phone] | | | | | | A-V [...] NEPHROLOGY [address] | MD [address] | malfunction, initial | | | | [address] | [address] [place] | encounter (HCC) | | | | [place], [place] | [place] [address] | (Primary Dx) | | | | [address] | [phone] | | | | | [phone] | | | +--------+ + + + [...] [place] | | | | | | [place] [address] | | | | | | [phone] | | | | | | | [...] | Dialysis AV fistula malfunction, initial encounter ([facility]) - Primary | + + documented in this encounter"
--- OUTSIDE RECORDS SUMMARY | ~2019-03-08 | XMS | Encounter Summary ---
Demographics + + + | Address | [address] | | | [place] [address] | + + + | Home Phone [...] | | | | | [place] [address] | | + + + + + | Thania Mallory | ECON | [address] | | | | | [place] [address] | | + + + + + | Deidra Weldon | ECON | [address] | | | | | [place] | | | | | [address] | | + + + + + Care Team Providers + +------+ + | Care Small Equipment Operator Name | Role | Phone [...] | | 2012 | anned | [address] [facility] | | | | | | [facility] | | | | | | [place], [place] | | | | | | [address] | | | +--------+ + + + [...] Denise | | | | | | [place], [place] | | | | | | [address] | | | | | | [phone] | | | | | | | | +--------+ + + + + documented as of this encounter Visit Diagnoses Not on filedocumented in this encounter"
--- OUTSIDE RECORDS SUMMARY | ~2019-03-08 | XMS | Encounter Summary ---
Demographics + + + | Address | [address] | | | [place] [address] | + + + | Home Phone [...] | | | | | [place] [address] | | + + + + + | Thania Mallory | ECON | [address] | | | | | [place] [address] | | + + + + + | Deidra Weldon | ECON | [address] | | | | | [place] | | | | | [address] | | + + + + + Care Team Providers + +------+ + | Care Planer Chain Offbearer Name | Role | Phone | + [...] Denise | | | | | | [place], [place] | | | | | | [address] | | | | | | [phone] | | | | | | | | +--------+ + + + + documented as of this encounter Visit Diagnoses Not on filedocumented in this encounter"
--- OUTSIDE RECORDS SUMMARY | ~2019-03-08 | XMS | Encounter Summary ---
Demographics + + + | Address | [address] | | | [place] [address] | + + + | Home Phone [...] | | | | | [place] [address] | | + + + + + | Thania Mallory | ECON | [address] | | | | | [place] [address] | | + + + + + | Deidra Weldon | ECON | [address] | | | | | [place] | | | | | [address] | | + + + + + Care Team Providers + +------+ + | Care Medical Information Specialist Name | Role | Phone | [...] living/support | | | | [address] [place], | [place], [place] | situation) | | | | [place] [address] | [address] | | | | | [phone] | | | +--------+ + + + [...] | | | | | | [place] | | | | | | [address] | | | | | | [phone] | | | | | | | | +--------+ + + + + documented as of this encounter Visit Diagnoses Not on filedocumented in this encounter"
--- OUTSIDE RECORDS SUMMARY | ~2019-03-08 | XMS | Encounter Summary ---
Demographics + + + | Address | [address] | | | [place] [address] | + + + | Home Phone [...] | | | | | [place] [address] | | + + + + + | Thania Mallory | ECON | [address] | | | | | [place] [address] | | + + + + + | Deidra Weldon | ECON | [address] | | | | | [place] | | | | | [address] | | + + + + + Care Team Providers + +------+ + | Care Primer Boxer Name | Role | Phone | + [...] | | | | [address] [place] | [facility] | | | | | [facility], | [place], [place] | | | | | [place] [address] | [address] | | | | | [phone] | | | +--------+ + + + [...] [place] | | | | | | [address] | | | | | | [phone] | | | | | | | | +--------+ + + + + documented as of this encounter Visit Diagnoses Not on filedocumented in this encounter"
--- OUTSIDE RECORDS SUMMARY | ~2019-03-08 | XMS | Encounter Summary ---
Demographics + + + | Address | [address] | | | [place] [address] | + + + | Home Phone [...] Author | [facility] | | | and [place]ana | + + + | Organization | [facility] | [...] Team Providers + +------+ + | Care Rigger Apprentice Name | Role | Phone | + +------+ + PCP | Unavailable | + +------+ + Encounter Details +--------+ + + + + | Date | Type | Department | Care Team | Description | +--------+ + + + + | 04/08/ | Hospital | [facility] | Rik Simon MD | | | 2015 | Encounter | [facility] | [address] | | | | | [address] | [place], [place] | | | | | [place], [place] | [address] | | | | | [address] | [phone] | | | | | [phone] | | | +--------+ + + + [...] 142 Date of Service: 04/08/141425 Status: Signed Identity Management Consultant: Coral Amador RPH (Pharmacist) Clinical Pharmacy Note - Renal Dose Adjustment Dara Weldon 19 y.o. female Ht Readings from Last 1 Encounters: 04/08/14 1.676 m (5' 6") (75 %*, Z = 0.69) * Growth percentiles are based on [facility] 2-20 Years data. Wt Readings from Last 1 Encounters: 04/08/14 96.2 kg (212 lb 1.3 oz) (98 %*, Z = 2.12) * Growth percentiles are based on [facility] 2-20 Years data. CREATININE Date Value Ref Range Status 04/08/2014 8.68* 0.50 - 1.00 mg/dL Final Testing performed at [facility];[address] [place] [address];[place] [address] ESRD on HD Pharmacy to renally adjust [...] Note by Cheryl Rubalcava RN at 04/08/14 0396 Author: Cheryl Rubalcava RN Service: (none) Author Type: Registered Nurse Filed: 04/08/14 1443 Date of Service: 04/08/141407 Status: Signed Identity Management Consultant: Cheryl Rubalcava RN (Registered Nurse) Pt and [...] 132 Date of Service: 04/08/141320 Status: Signed Identity Management Consultant: Cheryl Rubalcava RN (Registered Nurse) Pt family [...] [place] | | | | | | [place] [address] | | | | | | [phone] | | | | | | | [...] LAB | | | | Blvd;[place] [address] | | | | + + + + + + | Antibody | NEGATIVE | | EXTERNAL | | | Screen | | | LAB | | + + + + + + | Antibody | Testing performed at | | EXTERNAL | | | Screen | [facility];[address] | | LAB | | | | [address];[place] [address] | | | | + + + + + + | BB BAND | [id number] | | EXTERNAL | | | | | | LAB | | + + + + + + | BB BAND | Testing performed at | | EXTERNAL | | | | [facility];[address] | | LAB | | | | [address];[place] [address] | | | | + + + [...] at [facility];[address] | mmol/L | LAB | | | | [address];[place] | | | | | | [address] | | | | + + + + + + | K | 4.1Comment: SLT | 3.5 - 4.9 | EXTERNAL | | | | HEMOLYSISTesting | mmol/L | LAB | | | | performed at [facility];[address] | | | | | | [address];[place] | | | | | | [address] | | | | + + + + + + | Cl | 102Comment: Testing | 99 - 109 mmol/L | EXTERNAL | | | | performed at [facility];[address] | | LAB | | | | [address];[place] | | | | | | [address] | | | | + + + + + + | CO2 | 28Comment: Testing | 23 - 32 mmol/L | EXTERNAL | | | | performed at [facility];[address] | | LAB | | | | [address];[place] | | | | | | [address] | | | | + + + + + + | Anion Gap | 13Comment: Testing | 5 - 20 mmol/L | EXTERNAL | | | | performed at [facility];[address] | | LAB | | | | [address] | | | | | | [address] | | | | + + + + + + | Glucose, | 87Comment: Testing | 65 - 99 mg/dL | EXTERNAL | | | Fasting | performed at [facility];[address] | | LAB | | | | [address] | | | | | | [address] | | | | + + + [...] at [facility];[address] | mg/dL | LAB | | | | [address] | | | | | | [address] | | | | + + + + + + | BUN/Creatin | 4Comment: Testing | | EXTERNAL | | | ine Ratio | performed at [facility];[address] | | LAB | | | | [address] | | | | | | [address] | | | | + + + + + + | Calcium | 8.8Comment: NOTE NEW | 8.5 - 10.5 | EXTERNAL | | | | REFERENCE RANGETesting | mg/dL | LAB | | | | performed at [facility];[address] | | | | | | [address];[place] | | | | | | [address] | | | | + + + + + + | Estimated | CALCULATION NOT | mL/min/1.73m2 | EXTERNAL | | | GFR | PERFORMED. RESULT NOT | | LAB | | | | VALID IF AGE LT 20 | | | | | | YEARS.Comment: Testing | | | | | | performed at [facility];[address] | | | | | | [address];[place], [place] | | | | | | [address] | | | | + + + [...]
--- OUTSIDE RECORDS SUMMARY | ~2019-03-08 | XMS | Encounter Summary ---
Demographics + + + | Address | [address] | | | [place] [address] | + + + | Home Phone [...] | | | | | [place] [address] | | + + + + + | Thania Mallory | ECON | [address] | | | | | [place] [address] | | + + + + + | Deidra Weldon | ECON | [address] | | | | | [place] | | | | | [address] | | + + + + + Care Team Providers + +------+ + | Care Cheese Factory Worker Name | Role | Phone [...] SSA) | | | | [address] [place], | [place], [place] | | | | | [place] [address] | [address] | | | | | [phone] | | | +--------+ + + + [...] | | | | | | [place] | | | | | | [address] | | | | | | [phone] | | | | | | | | +--------+ + + + + documented as of this encounter Visit Diagnoses Not on filedocumented in this encounter"
--- OUTSIDE RECORDS SUMMARY | ~2019-03-08 | XMS | Encounter Summary ---
Demographics + + + | Address | [address] | | | [place] [address] | + + + | Home Phone [...] | Author | [facility] | | | and [place]ana | + + + | Organization | [facility] [...] +------+ + | Care Health And Safety Coordinator Name | Role | Phone | + +------+ + PCP | Unavailable | + +------+ + Encounter Details +--------+ + + + + | Date | Type | Department | Care Team | Description | +--------+ + + + + | 03/07/ | Hospital | [facility] | Rik Simon MD | Complication of AV | | 2015 | Encounter | [facility] | [address] | dialysis fistula, | | | | OPER[address] RO[address] | [place], [place] | initial encounter | | | | [address] | [address] | ([facility]) | | | | [place], [place] | [phone] | | | | | [address] | | | | | | [phone] | | | +--------+ + + + [...] [place] | | | | | | [place] [address] | | | | | | [phone] | | | | | | | [...] preparation was performed | | | by [facility], [address], | | | [place] [address] (Menagerie Superintendent: Daniel Larson M.D.; | | | [facility]#: [id number]). Diagnostician: Anahy Da Silva MD Pathologist | [...] LAB | | | | Blvd;[place] [address] | | | | + + + + + + | Antibody | NEGATIVE | | EXTERNAL | | | Screen | | | LAB | | + + + + + + | Antibody | Testing performed at | | EXTERNAL | | | Screen | [facility];[address] | | LAB | | | | [address];[place] [address] | | | | + + + + + + | BB BAND | [id number] | | EXTERNAL | | | | | | LAB | | + + + + + + | BB BAND | Testing performed at | | EXTERNAL | | | | [facility];[address] | | LAB | | | | [address]vd;[place] [address] | | | | + + + [...] | | | | | ONLY, -COMPUTER (581), | | | | | | scientific editor ROBERT BOOKER (8) | | | [...] | Lul Elizabeth MD 03/08/2014 2:32 AM [facility] | | | [place] Department of Emergency Medicine 4:10 PM History [...] | | | a half ago in [place]. She is still using a right subclavian [...] | | Provider folic acid-vitamin b complex-vitamin z-hcaydkwf-mzsa | | | (DIALYVITE) 3 MG TABS [...] Negative for chest pain, | | | ugzpcolzv-yo-aigkcw, or cough GI: Negative for abdominal pain, [...] Date/Time Complete Metabolic | | | Panel [[id number]] (Abnormal) Collected: 03/07/141624 Order | | | [...] LT 20 YEARS. | | | PTT [[id number]] Collected: 03/07/141624 Order Status: | | | Completed Updated: 03/07/141704 Specimen Information: | | | Blood APTT 29 23 - 32 seconds CBC w Auto Diff [[id number]] | | | (Abnormal) Collected: 03/07/14 1625 [...] | Rik Simon MD In [address] [place] [address] | | | [phone] Discharge Medications: Discharge Medication | | | [...] | | Patient | performed at [facility];[address] | | LAB | | | | [address];[place] | | | | | | [address] | | | | + + + [...] [facility];[address] | | LAB | | | | [address];[place] | | | | | | [address] | | | | + + + + + + | RED CELL | 3.70Comment: Testing | 3.70 - 5.10 | EXTERNAL | | | COUNT | performed at [facility];888 | M/uL | LAB | | | | [address];[place] | | | | | | [address] | | | | + + + + + + | Hgb | 12.9Comment: Testing | 11.3 - 15.5 | EXTERNAL | | | | performed at [facility];888 | g/dL | LAB | | | | [address];[place] | | | | | | [address] | | | | + + + + + + | Hematocrit, | 38.9Comment: Testing | 34.0 - 46.0 % | EXTERNAL | | | POC | performed at [facility];[address] | | LAB | | | | [address];[place] | | | | | | [address] | | | | + + + + + + | MCV | 105.2 (H)Comment: | 80.0 - 100.0 fl | EXTERNAL | | | | Testing performed at | | LAB | | | | [facility];[address] | | | | | | [address];[place] [address] | | | | + + + + + + | MCH | 35.0 (H)Comment: Testing | 27.0 - 34.0 pg | EXTERNAL | | | | performed at [facility];[address] | | LAB | | | | [address];[place] | | | | | | [address] | | | | + + + + + + | MCHC | 33.3Comment: Testing | 32.0 - 35.5 | EXTERNAL | | | | performed at [facility];888 | g/dL | LAB | | | | [address];[place] | | | | | | [address] | | | | + + + + + + | RDW-CV | 51.6Comment: Testing | 37 - 53 fl | EXTERNAL | | | | performed at [facility];[address] | | LAB | | | | [address];[place] | | | | | | [address] | | | | + + + + + + | Platelet | 175Comment: Testing | 150 - 400 K/uL | EXTERNAL | | | Count | performed at [facility];[address] | | LAB | | | Plasma | [address];[place] | | | | | | [address] | | | | + + + + + + | MPV | 8.9Comment: Testing | fl | EXTERNAL | | | | performed at [facility];[address] | | LAB | | | | [address];[place] | | | | | | [address] | | | | + + + + + + | Differentia | AUTOMATEDComment: | | EXTERNAL | | | l Type | Testing performed at | | LAB | | | | [facility];[address] | | | | | | [address];[place] [address] | | | | + + + + + + | % Segmented | 71.7Comment: Testing | % | EXTERNAL | | | | performed at [facility];[address] | | LAB | | | Neutrophils | [address];[place] | | | | | | [address] | | | | + + + + + + | % | 19.5Comment: Testing | % | EXTERNAL | | | Lymphocytes | performed at [facility];[address] | | LAB | | | | [address];[place] | | | | | | [address] | | | | + + + + + + | % Monocytes | 6.7Comment: Testing | % | EXTERNAL | | | | performed at [facility];[address] | | LAB | | | | [address];[place] | | | | | | [address] | | | | + + + + + + | % | 1.6Comment: Testing | % | EXTERNAL | | | Eosinophils | performed at [facility];[address] | | LAB | | | | [address];[place] | | | | | | [address] | | | | + + + + + + | % Basophils | 0.5Comment: Testing | % | EXTERNAL | | | | performed at [facility];[address] | | LAB | | | | [address];[place] | | | | | | [address] | | | | + + + + + + | Absolute | 5.6Comment: Testing | 1.9 - 7.4 K/uL | EXTERNAL | | | Segmented | performed at [facility];888 | | LAB | | | Neutrophils | [address];[place] | | | | | | [address] | | | | + + + + + + | Absolute | 1.5Comment: Testing | 1.0 - 3.9 K/uL | EXTERNAL | | | Lymphocytes | performed at [facility];[address] | | LAB | | | | [address];[place] | | | | | | [address] | | | | + + + + + + | Absolute | 0.5Comment: Testing | 0 - 0.8 K/uL | EXTERNAL | | | Monocytes | performed at [facility];[address] | | LAB | | | | [address];[place] | | | | | | [address] | | | | + + + + + + | Absolute | 0.1Comment: Testing | 0 - 0.5 K/uL | EXTERNAL | | | Eosinophils | performed at [facility];888 | | LAB | | | | [address];[place] | | | | | | [address] | | | | + + + + + + | Absolute | 0.0Comment: Testing | 0 - 0.1 K/uL | EXTERNAL | | | Basophils | performed at [facility];[address] | | LAB | | | | [address];[place] | | | | | | [address] | | | | + + + [...] [facility] [place];888 | mmol/L | LAB | | | | [address];[place] | | | | | | [address] | | | | + + + + + + | K | 3.9Comment: Testing | 3.5 - 4.9 | EXTERNAL | | | | performed at [facility];888 | mmol/L | LAB | | | | [address];[place] | | | | | | [address] | | | | + + + + + + | Cl | 103Comment: Testing | 99 - 109 mmol/L | EXTERNAL | | | | performed at [facility];[address] | | LAB | | | | [address];[place] | | | | | | [address] | | | | + + + + + + | CO2 | 26Comment: Testing | 23 - 32 mmol/L | EXTERNAL | | | | performed at [facility];[address] | | LAB | | | | [address];[place] | | | | | | [address] | | | | + + + + + + | Anion Gap | 12Comment: Testing | 5 - 20 mmol/L | EXTERNAL | | | | performed at [facility];[address] | | LAB | | | | [address];[place] | | | | | | [address] | | | | + + + + + + | Glucose, | 78Comment: Testing | 65 - 99 mg/dL | EXTERNAL | | | Fasting | performed at [facility];[address] | | LAB | | | | [address];[place] | | | | | | [address] | | | | + + + + + + | BUN | 12Comment: Testing | 8 - 25 mg/dL | EXTERNAL | | | | performed at [facility];[address] | | LAB | | | | [address];[place] | | | | | | [address] | | | | + + + + + + | Creatinine | 3.51 (H)Comment: Testing | 0.50 - 1.00 | EXTERNAL | | | | performed at [facility];888 | mg/dL | LAB | | | | [address];[place] | | | | | | [address] | | | | + + + + + + | BUN/Creatin | 4Comment: Testing | | EXTERNAL | | | ine Ratio | performed at [facility];888 | | LAB | | | | [address];[place] | | | | | | [address] | | | | + + + + + + | Calcium | 9.6Comment: Testing | 8.5 - 10.2 | EXTERNAL | | | | performed at [facility];888 | mg/dL | LAB | | | | [address];[place] | | | | | | [address] | | | | + + + + + + | Protein, | 8.1Comment: Testing | 6.3 - 8.2 g/dL | EXTERNAL | | | Total | performed at [facility];[address] | | LAB | | | | [address];[place] | | | | | | [address] | | | | + + + + + + | Albumin | 3.7Comment: Testing | 3.6 - 5.0 g/dL | EXTERNAL | | | | performed at [facility];888 | | LAB | | | | [address];[place] | | | | | | [address] | | | | + + + + + + | Globulin | 4.3Comment: Testing | 1.3 - 4.9 g/dL | EXTERNAL | | | | performed at [facility];888 | | LAB | | | | [address];[place] | | | | | | [address] | | | | + + + + + + | A/G Ratio | 0.9 (L)Comment: Testing | 1.0 - 2.4 | EXTERNAL | | | | performed at [facility];[address] | | LAB | | | | [address];[place] | | | | | | [address] | | | | + + + + + + | Bilirubin | 0.4Comment: Testing | 0.1 - 1.5 mg/dL | EXTERNAL | | | Total | performed at [facility];[address] | | LAB | | | | [address];[place] | | | | | | [address] | | | | + + + + + + | ALP, | 121 (H)Comment: Testing | 35 - 115 U/L | EXTERNAL | | | External | performed at [facility];[address] | | LAB | | | | [address];[place] | | | | | | [address] | | | | + + + + + + | AST | 20Comment: Testing | 10 - 45 U/L | EXTERNAL | | | | performed at [facility];[address] | | LAB | | | | [address];[place] | | | | | | [address] | | | | + + + + + + | ALT | 38Comment: Testing | 10 - 65 U/L | EXTERNAL | | | | performed at [facility];[address] | | LAB | | | | [address];[place] | | | | | | [address] | | | | + + + [...] [place];[address] | | | | | | [facility];[place], [place] | | | | | | [address] | | | | + + + [...]
--- OUTSIDE RECORDS SUMMARY | ~2019-03-08 | XMS | Encounter Summary ---
Demographics + + + | Address | [address] | | | [place] [address] | + + + | Home Phone [...] | | | | | [place] [address] | | + + + + + | Thania Mallory | ECON | [address] | | | | | [place] [address] | | + + + + + | Deidra Weldon | ECON | [address] | | | | | [place] | | | | | [address] | | + + + + + Care Team Providers + +------+ + | Care School Boat Driver Name | Role | Phone | [...] Nephrology at | MD Emanuel [address] [facility] | Recommendations | | | | Alexander | Elias Caro | | | | | [facility] | [place], [place] | | | | | [address] | [address] | | | | | Mailcode: [id number] | [phone] | | | | | Alexander | | | | | | [place], [place] | | | | | | [address] | | | | | | [phone] | | | +--------+ + + + [...] Denise | | | | | | [place] | | | | | | [address] | | | | | | [phone] | | | | | | | | +--------+ + + + + documented as of this encounter Visit Diagnoses Not on filedocumented in this encounter"
--- OUTSIDE RECORDS SUMMARY | ~2019-03-08 | XMS | Encounter Summary ---
Demographics + + + | Address | [address] | | | [place] [address] | + + + | Home Phone [...] | | | | | [place] [address] | | + + + + + | Thania Mallory | ECON | [address] | | | | | [place] [address] | | + + + + + | Deidra Weldon | ECON | [address] | | | | | [place] | | | | | [address] | | + + + + + Care Team Providers + +------+ + | Care Painter Helper Sign Name | Role | Phone | + [...] | | [address] | [facility] | | | | | Caro [facility], | [place], [place] | | | | | [place] [address] | [address] | | | | | [phone] | | | +--------+ + + + [...] Denise | | | | | | [place], [place] | | | | | | [address] | | | | | | [phone] | | | | | | | | +--------+ + + + + documented as of this encounter Visit Diagnoses Not on filedocumented in this encounter"
--- OUTSIDE RECORDS SUMMARY | ~2019-03-08 | XMS | Encounter Summary ---
Demographics + + + | Address | [address] | | | [place] [address] | + + + | Home Phone [...] | | | | | [place] [address] | | + + + + + | Thania Mallory | ECON | [address] | | | | | [place] [address] | | + + + + + | Deidra Weldon | ECON | [address] | | | | | [place] | | | | | [address] | | + + + + + Care Team Providers + +------+ + | Care Manugrapher Name | Role | Phone | + [...] Query) | | | | Caro [place], | [place], [place] | | | | | [place] [address] | [address] | | | | | [phone] | [phone] | | | | | | | [...] [place] | | | | | | [address] | | | | | | [phone] | | | | | | | | +--------+ + + + + documented as of this encounter Visit Diagnoses Not on filedocumented in this encounter"
--- OUTSIDE RECORDS SUMMARY | ~2019-03-08 | XMS | Encounter Summary ---
Demographics + + + | Address | [address] | | | [place] [address] | + + + | Home Phone [...] | | | | | [place] [address] | | + + + + + | Thania Mallory | ECON | [address] | | | | | [place] [address] | | + + + + + | Deidra Weldon | ECON | [address] | | | | | [place] | | | | | [address] | | + + + + + [...] - | | | | Caro [place], | [place], [place] | psychosocial | | | | [place] [address] | [address] | readiness update) | | | | [phone] | | | +--------+ + + + [...] Denise | | | | | | [place], [place] | | | | | | [address] | | | | | | [phone] | | | | | | | | +--------+ + + + + documented as of this encounter Visit Diagnoses Not on filedocumented in this encounter"
--- OUTSIDE RECORDS SUMMARY | ~2019-03-08 | XMS | Encounter Summary ---
Demographics + + + | Address | [address] | | | [place] [address] | + + + | Home Phone [...] | | | | | [place] [address] | | + + + + + | Thania Mallory | ECON | [address] | | | | | [place] [address] | | + + + + + | Deidra Weldon | ECON | [address] | | | | | [place] | | | | | [address] | | + + + + + Care Team Providers + +------+ + | Care Lathe Set Up Person Name | Role | Phone [...] ) | | | | [address] | [facility] | | | | | [facility], | [place], [place] | | | | | [place] [address] | [address] | | | | | [phone] | | | +--------+ + + + [...] [place] | | | | | | [address] | | | | | | [phone] | | | | | | | | +--------+ + + + + documented as of this encounter Visit Diagnoses Not on filedocumented in this encounter"
--- OUTSIDE RECORDS SUMMARY | ~2019-03-08 | XMS | Encounter Summary ---
Demographics + + + | Address | [address] | | | [place] [address] | + + + | Home Phone [...] | | | | | [place] [address] | | + + + + + | Thania Mallory | ECON | [address] | | | | | [place] [address] | | + + + + + | Deidra Weldon | ECON | [address] | | | | | [place] | | | | | [address] | | + + + + + Care Team Providers + +------+ + | Care Electrical Software Engineer Name | Role | Phone [...] | | [address] | [facility] | | | | | Park [facility], | [place], [place] | | | | | [place] [address] | [address] | | | | | [phone] | | | +--------+ + + + [...] [place] | | | | | | [address] | | | | | | [phone] | | | | | | | | +--------+ + + + + documented as of this encounter Visit Diagnoses Not on filedocumented in this encounter"
--- OUTSIDE RECORDS SUMMARY | ~2019-03-08 | XMS | Encounter Summary ---
Demographics + + + | Address | [address] | | | [place] [address] | + + + | Home Phone [...] | | | | | [place] [address] | | + + + + + | Thania Mallory | ECON | [address] | | | | | [place] [address] | | + + + + + | Deidra Weldon | ECON | [address] | | | | | [place] | | | | | [address] | | + + + + + Care Team Providers + +------+ + | Care Fast Food Services Manager Name | Role | Phone [...] with | | | | Caro [place], | [place], [place] | pt's dad) | | | | [place] [address] | [address] | | | | | [phone] | | | +--------+ + + + [...] [place] | | | | | | [address] | | | | | | [phone] | | | | | | | | +--------+ + + + + documented as of this encounter Visit Diagnoses Not on filedocumented in this encounter"
--- OUTSIDE RECORDS SUMMARY | ~2019-03-08 | XMS | Encounter Summary ---
Demographics + + + | Address | [address] | | | [place] [address] | + + + | Home Phone [...] + | Author | [facility] | | | and [place] | + + + | Organization | [facility] [...] Team Providers + +------+ + | Care Binder Selector Name | Role | Phone | [...] NEPHROLOGY [address] | MD [address] | (Asymptomatic) | | | | [address] | [address] [place] | | | | | [place], [place] | [place] [address] | | | | | [address] | [phone] | | | | | [phone] | | | +--------+ + + + [...] AM PDTHEMO progress note manually faxed to [facility] [place], e-faxed to [facility] Pediatric Nephrology on 08/04 03/19. Daniela Marquez M D - 07/29/2013 1:57 PM PDT Comprehensive Dialysis Monthly Note Date of visit: 07/29/2013 Dialysis Clinic: [facility] Mode of dialysis: Hemodialysis Dialysis prescription: [...] Date Noted ESRD (end stage renal disease) ([facility]) Priority: High Note Last Updated: 07/29/2013 [...] age 10[address] Joy, pediatric allergist. Anemia in ESRD (end-stage renal disease) (HCC) [...] donor. Pt has been referred t o [facility]. 9. Peritonitis, MSSA. On Keflex. [facility] [place] [facility] Lianna Joy, [facility] Pediatric Nephrology documented in this encounter [...] [address] | | | | | | [place] [address] | | | | | | [phone] | | | | | | | | +--------+---------+ + + + documented as of this encounter Visit Diagnoses + + | Diagnosis | + + | ESRD (end stage renal disease) (HCC) - Primary End stage renal disease | + + | Anemia in ESRD (end-stage renal disease) ([facility]) Anemia in chronic kidney disease | + + | Secondary hyperparathyroidism (HCC) Secondary hyperparathyroidism (of renal origin) | + + | Peritonitis, dialysis-associated, initial encounter (HCC) | + + documented in this encounter"
--- OUTSIDE RECORDS SUMMARY | ~2019-03-08 | XMS | Encounter Summary ---
Demographics + + + | Address | [address] | | | [place] [address] | + + + | Home Phone [...] | | | | | [place] [address] | | + + + + + | Thania Mallory | ECON | [address] | | | | | [place] [address] | | + + + + + | Deidra Weldon | ECON | [address] | | | | | [place] | | | | | [address] | | + + + + + Care Team Providers + +------+ + | Care Radio Personality Name | Role | Phone | [...] | | | | | Park [address] [place], | [place], [place] | | | | | [place] [address] | [address] | | | | | [phone] | | | +--------+ + + + [...] Denise | | | | | | [place], [place] | | | | | | [address] | | | | | | [phone] | | | | | | | | +--------+ + + + + documented as of this encounter Visit Diagnoses Not on filedocumented in this encounter"
--- OUTSIDE RECORDS SUMMARY | ~2019-03-08 | XMS | Encounter Summary ---
Demographics + + + | Address | [address] | | | [place] [address] | + + + | Home Phone [...] Team Providers + +------+ + | Care Wine Sales Representative Name | Role | Phone [...] | Encounter | JOY | MD Emanuel [address] | | | | | [address] | [facility] | | | | | [address] | [place], [place] | | | | | [place], [place] | [address] | | | | | [address] | [phone] | | | | | [phone] | | | +--------+ + + + [...] [address] | | | | | | [place] [address] | | | | | | [phone] | | | | | | | | +--------+---------+ + + + documented as of this encounter Visit Diagnoses Not on filedocumented in this encounter"
--- OUTSIDE RECORDS SUMMARY | ~2019-03-08 | XMS | Encounter Summary ---
Demographics + + + | Address | [address] | | | [place] [address] | + + + | Home Phone [...] [address] [place] | [place] [address] | to return call to | | | | [address] | [phone] | complete intake | | | | [address] | | quest.) | | | | [phone] | | | +--------+ + + + [...] [place] | | | | | | [place] [address] | | | | | | [phone] | | | | | | | | +--------+---------+ + + + documented as of this encounter Visit Diagnoses Not on filedocumented in this encounter"
--- OUTSIDE RECORDS SUMMARY | ~2019-03-08 | XMS | Encounter Summary ---
Demographics + + + | Address | [address] | | | [place] [address] | + + + | Home Phone [...] | | | | | [place] [address] | | + + + + + | Thania Mallory | ECON | [address] | | | | | [place] [address] | | + + + + + | Deidra Weldon | ECON | [address] | | | | | [place] | | | | | [address] | | + + + + + Care Team Providers + +------+ + | Care Director Of Marketing Analytics Name | Role | Phone | + [...] | Family sheet) | | | | [address] | Elias [address] | | | | | Loop Mailcode: | [place], [place] | | | | | [address] [facility] | [address] | | | | | [address] | [phone] | | | | | [place], [place] | | | | | | [address] | | | | | | [phone] | | | +--------+ + + + [...] Denise | | | | | | [place] | | | | | | [address] | | | | | | [phone] | | | | | | | | +--------+ + + + + documented as of this encounter Visit Diagnoses Not on filedocumented in this encounter"
--- OUTSIDE RECORDS SUMMARY | ~2019-03-08 | XMS | Encounter Summary ---
Demographics + + + | Address | [address] | | | [place] [address] | + + + | Home Phone [...] | | | | | [place] [address] | | + + + + + | Thania Mallory | ECON | [address] | | | | | [place] [address] | | + + + + + | Deidra Weldon | ECON | [address] | | | | | [place] | | | | | [address] | | + + + + + Care Team Providers + +------+ + | Care Fan Blade Aligner Name | Role | Phone | + [...] | | [phone] | [facility] | | | | | [address] [facility], | [place], [place] | | | | | [place] [address] | [address] | | | | | [phone] | | | +--------+ + + + [...] | | | | | | [place], [place] | | | | | | [address] | | | | | | [phone] | | | | | | | | +--------+ + + + + documented as of this encounter Visit Diagnoses Not on filedocumented in this encounter"
--- OUTSIDE RECORDS SUMMARY | ~2019-03-08 | XMS | Encounter Summary ---
Demographics + + + | Address | [address] | | | [place] [address] | + + + | Home Phone [...] | | | | | [place] [address] | | + + + + + | Thania Mallory | ECON | [address] | | | | | [place] [address] | | + + + + + | Deidra Weldon | ECON | [address] | | | | | [place] | | | | | [address] | | + + + + + Care Team Providers + +------+ + | Care Estate Agent Name | Role | Phone | [...] | | | | | [place], | | | | | | [place] [address] | | | +--------+ + + + [...] Denise | | | | | | [place], [place] | | | | | | [address] | | | | | | [phone] | | | | | | | [...] DANILO - | [address], | [place] [address] | | | IMMUNOGENETICS/TRANS | [address] | | | | PLANT LABORATORY | | | | + + + + + documented in this encounter Visit Diagnoses Not on filedocumented in this encounter"
--- OUTSIDE RECORDS SUMMARY | ~2019-03-08 | XMS | Encounter Summary ---
Demographics + + + | Address | [address] | | | [place] [address] | + + + | Home Phone [...] Author | [facility] | | | and Josephana | + + + | Organization | [facility] [...] Team Providers + +------+ + | Care Embossing Clerk Name | Role | Phone | [...] | | stage renal | [address] | [address] [place] [address] | | | | | disease) | Shun Griffin | [place] | | | | | ([facility]LY [facility]) | [address] | [address] | | | | | Anemia in | [place], [place] | [place], [place] | | | | | ESRD | [address] | [address] Phone: | | | | | (end-stage | Phone: | [phone] | | | | | renal | [phone] | Fax: | | | | | disease) | Fax: | [phone] | | | | | ([facility]) | [phone] | | | | | | Procedures | | | | | | | [place] ESRD | | | | | | [...] | | [address] | [place], [address] | (Primary Dx) | | | | [place], [place] | [place], [place] | | | | | [address] | [address] | | | | | [phone] | | | +--------+ + + + [...] Will recheck her in 2 weeks. : [facility] Jonathan Alonso MD, PhD documented in [...] [place] | | | | | | [place] [address] | | | | | | [phone] | | | | | | | | +--------+---------+ + + + documented as of this encounter Visit Diagnoses + + | Diagnosis | + + | ESRD (end stage renal disease) (HCC) - Primary End stage renal disease | + + documented in this encounter"
--- OUTSIDE RECORDS SUMMARY | ~2019-03-08 | XMS | Encounter Summary ---
Demographics + + + | Address | [address] | | | [place] [address] | + + + | Home Phone [...] | | | | | [place] [address] | | + + + + + | Thania Mallory | ECON | [address] | | | | | [place] [address] | | + + + + + | Deidra Weldon | ECON | [address] | | | | | [place] | | | | | [address] | | + + + + + Care Team Providers + +------+ + | Care Rotating Field Assembler Name | Role | Phone | [...] | | | | | Park [place], | [place], [place] | | | | | [place] [address] | [address] | | | | | [phone] | | | +--------+ + + + [...] | | | | | | [place] | | | | | | [address] | | | | | | [phone] | | | | | | | | +--------+ + + + + documented as of this encounter Visit Diagnoses Not on filedocumented in this encounter"
--- OUTSIDE RECORDS SUMMARY | ~2019-03-08 | XMS | Encounter Summary ---
Demographics + + + | Address | [address] | | | [place] [address] | + + + | Home Phone [...] | Author | [facility] | | | and Josephana | + + + | Organization | [facility] [...] Providers + +------+ + | Care Sand Cutter Operator Name | Role | Phone [...] | | | [address] | [place], [place] | | | | | [place], [place] | [address] | | | | | [address] | [phone] | | | | | [phone] | | | +--------+ + + + [...] [place]SON | | | | | | [place] [address] | | | | | | [phone] | | | | | | | | +--------+---------+ + + + documented as of this encounter Visit Diagnoses Not on filedocumented in this encounter"
--- OUTSIDE RECORDS SUMMARY | ~2019-03-08 | XMS | Encounter Summary ---
Demographics + + + | Address | [address] | | | [place] [address] | + + + | Home Phone [...] | Author | [facility] | | | and Josephana | + + + | Organization | [facility] | | [...] Providers + +------+ + | Care Military Professional Name | Role | Phone | [...] | | | [place], [place] | [place] [address] | | | | | | [address] | Phone: | | | | | | Phone: | [phone] | | | | | | [phone] | Fax: | | | | | | Fax: | [phone] | | | | | | [phone] | | +--------+ + + + + + Encounter Details +--------+ + + + + | Date | Type | Department | Care Team | Description | +--------+ + + + + | 02/03/ | Orders Only | [facility] [place] | Jorje Camp | ESRD (end stage | | 2013 | | NEPHROLOGY [address] | M, DO | renal disease) ([facility]) | | | | [address] | [place], [address] | (Primary Dx) | | | | [place], [place] | [place], [place] | | | | | [address] | [address] | | | | | [phone] | | | +--------+ + + + [...] [place] | | | | | | [place] [address] | | | | | | [phone] | | | | | | | [...] | Referral | e | renal disease) ([facility]) | | | Referral | | | | | + + +--------+ + + documented as of this encounter Visit Diagnoses + + | Diagnosis | + + | ESRD (end stage renal disease) ([facility]) - Primary End stage renal disease | + + documented in this encounter"
--- OUTSIDE RECORDS SUMMARY | ~2019-03-08 | XMS | Encounter Summary ---
Demographics + + + | Address | [address] | | | [place] [address] | + + + | Home Phone [...] | | | | | [place] [address] | | + + + + + | Thania Mallory | ECON | [address] | | | | | [place] [address] | | + + + + + | Deidra Weldon | ECON | [address] | | | | | [place] | | | | | [address] | | + + + + + Care Team Providers + +------+ + | Care Health Science Instructor Name | Role | Phone | [...] | | | | [address] | [facility] | | | | | Park [facility], | [place], [place] | | | | | [place] [address] | [address] | | | | | [phone] | | | +--------+ + + + [...] Denise | | | | | | [place], [place] | | | | | | [address] | | | | | | [phone] | | | | | | | | +--------+ + + + + documented as of this encounter Visit Diagnoses Not on filedocumented in this encounter"
--- OUTSIDE RECORDS SUMMARY | ~2019-03-08 | XMS | Encounter Summary ---
Demographics + + + | Address | [address] | | | [place] [address] | + + + | Home Phone [...] | | | | | [place] [address] | | + + + + + | Thania Mallory | ECON | [address] | | | | | [place] [address] | | + + + + + | Deidra Weldon | ECON | [address] | | | | | [place] | | | | | [address] | | + + + + + Care Team Providers + +------+ + | Care System Safety Engineer Name | Role | Phone | + +------+ + | Shahid Camargo MD | PCP | | + +------+ + Encounter Details +--------+------+ + + + | Date | Type | Department | Care Team | Description | +--------+------+ + + + | 12/20/ | Lab | [facility] at [facility] | | Allergic purpura- | | 2012 | | 7th Floor [address] | | MEDICARE [address] | | | | [address] [place], | | (Primary Dx) | | | | [place] [address] | | | | | | [phone] | | | +--------+------+ + + + [...] Denise | | | | | | [place], [place] | | | | | | [address] | | | | | | [phone] | | | | | | | [...] - | [address] | [place], [place] | | | IMMUNOGENETICS/TRANS | Suite [...] - | [address] | [place], [place] | | | IMMUNOGENETICS/TRANS | Suite [...] | [facility] - | [address] | [place] [address] | | | IMMUNOGENETICS/TRANS | [address] [...] [facility] - | [address], | [place] [address] | | | IMMUNOGENETICS/TRANS | [address] [...] [facility] - | [address] | [place] [address] | | | IMMUNOGENETICS/TRANS | [address] [...] - | [address] | [place], [place] | | | IMMUNOGENETICS/TRANS | Suite [...] - | [address] | [place], [place] | | | IMMUNOGENETICS/TRANS | Suite [...] [facility] - | [address] | [place] [address] | | | IMMUNOGENETICS/TRANS | [address] [...] + + | [facility] - | [address] | [place] [address] | | | IMMUNOGENETICS/TRANS | [address] [...] | + + + + + | [facility] | [address] | [place] [address] | | | SERVICES, | [address] [...] [facility] | [address] | [place] [address] | | | SERVICES, | [address] [...] | + + + + + | [facility] | [address] | [place] [address] | | | SERVICES, CORE | PARK [...] UNIV | | | | Pippa Sauceda, [facility] | | PTH - INTFC | | | | [address] | | | | | | [phone].[email or web address]. | | | | | | Faisal [...] [facility] | [address] | [place], [place] | | | UNIV PTH - INTFC | | [address] | | + + + + + [...] + + + + | [facility] | [address] | [place] [address] | | | SERVICES, HOMERO | PARK [...] | + + + + + | [facility] | [address] | [place] [address] | | | SERVICES, CORE | LONG [...] + | [facility] - | [address] | [place] [address] | | | [place] | | | [...] [facility] | [address] | [place] [address] | | | SERVICES, CORE | PARK [...] [facility] | [address] | [place] [address] | | | SERVICES, CORE | PARK [...] | + + + + + | [facility] | [address] | [place] [address] | | | SERVICES, CORE | PARK [...] + | [facility] - | [address] | [place] [address] | | | [place] | | | [...] at: | | | | | | http://www.cdc.gov/nchstp/tb/pubs/tbfactssheets/027764.htm | | | Test performed by: [facility] [address] | | | [address] [place] [address] | | + + + + + [...] [facility] | [address] | [place] [address] | | | SERVICES, SPECIAL | PARK [...] gene at | DIAGNOSTIC | | nucleotide [address]50[address]. Please note that this assay only detects the | LABORATORIES | | [id number] point mutation and therefore a normal result [...] has been analyzed for the presence of [id number] | | | mutation in the prothrombin [...] | | Heterozygotes for the common prothrombin [id number] mutation constitute | | | approximately 2% of the normal white population (1,2). | | | References: 1.) Poort et al. Blood 88, 8873-2833 (1996). 2.) Ricardo | | | et al. Circulation 99, 999-1004 (1998). 3.) Al Montalvo, and | | | Press. Amer J Clin Path 155, 439-47 (2000). This test was | | | developed and its performance characteristics determined by the [facility] | | | [facility] Diagnostic [facility]. It has | [...] [facility] | | | Diagnostic Laboratories Molecular Diagnostic Center is a fully | | | licensed and/or accredited clinical laboratory under CLIA, CAP, and | | | the [facility]. Please note that our lab now [...] + + | Performing | Address | City/State/Inscription House Health Centercode | Phone Number | | Organization | | | | + + + + + | [facility] | [address] | [place] [address] | | | DIAGNOSTIC | [address] [...] [facility] | [address] | [place] [address] | | | SERVICES, CORE | PARK [...] | + + + + + | [facility] | [address] | [place] [address] | | | SERVICES, CORE | LONG [...] [facility] | [address] | [place] [address] | | | SERVICES, CORE | PARK [...] + + + + | [facility] | [address] | [place] [address] | | | SERVICES, HOMERO | LONG [...] | | | | | | Laboratories,[address] [facility] | | | | | | Rajendra, [facility] [place] [address] | | | | | | [phone].[email or web address]. | | | | | | Faisal [...] [facility] | [address] | [place], [place] | | | UNIV PTH - INTFC | | [address] | | + + + + + [...] + + + + | [facility] | [address] | [place] [address] | | | SERVICES, SPECIAL | PARK [...] C PCR, | Undetected | IU/mL | [facility] | | | QUANT | | | [...] + + + + | [facility] | [address], | [place] [address] | | | DIAGNOSTIC | [address] [...] + | [facility] - | [address] | [place] [address] | | | [place] | | | [...] + | [facility] - | [address] | [place] [address] | | | [place] | | | [...] + | [facility] - | [address] | [place] [address] | | | [place] | | | [...] + | [facility] - | [address] | [place] [address] | | | [facility] | [...] less......Not | | | | | | Qdmrgfoh16.0-21.9 | | | | | | U/mL.........Indetermina [...] available | | | | | | [email or web address] | | | | | | vdx.Performed by [facility] | | | | | | Laboratories,[address] [facility] | | | | | | Rajendra [facility] [place] [address] | | | | | | [phone].WorldDoclab. | | | | | | Faisal [...] [facility] | [address] | [place], [place] | | | UNIV PTH - INTFC | | [address] | | + + + + + [...] + | [facility] - | [address] | [place] [address] | | | [place] | | | | + + + [...] + + + + | [facility] | [address] | [place] [address] | | | SERVICES, CORE | PARK [...] by | | | | | | [employer],[address] | | | | | | Pippa Sauceda, [facility] | | | | | | [address] | | | | | | [phone].WorldDoclab. | | | | | | [facility], Faisal Caraballo, | | | | [...] [facility] | [address] | [place], [place] | | | UNIV PTH - INTFC | | [address] | | + + + + + [...] [facility] | [address] | [place] [address] | | | SERVICES, CORE | PARK [...] | + + + + + | [facility] | [address] [facility] [address] 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
--- OUTSIDE RECORDS SUMMARY | ~2019-03-08 | XMS | Encounter Summary ---
Demographics + + + | Address | [address] | | | [place] [address] | + + + | Home Phone [...] Author | [facility] | | | and Josephana | + + + | Organization | [facility] | [...] Providers + +------+ + | Care Digital Strategy Manager Name | Role | Phone | [...] | | stage renal | [address] | [address] [place] [address] | | | | | disease) | Shun Griffin | [place] [address] | | | | | ([facility]) | [address] | [address] [place] | | | | | Anemia in | [place], [place] | [place] | | | | | ESRD | [address] | [address] Phone: | | | | | (end-stage | Phone: | [phone] | | | | | renal | [phone] | Fax: | | | | | disease) | Fax: | [phone] | | | | | ([facility]) | [phone] | | | | | | Procedures [...] | | [address] | [place], [address] | (Primary Dx) | | | | [place], [place] | [place], [place] | | | | | [address] | [address] | | | | | [phone] | | | +--------+ + + + [...] She is see n on HD at [facility], with QB = 450. Unfortunately, she is consistently plagued by unexplained absenteeism from treatments. Despite having reliable transportation arranged b y the Clerk Carrier. She apparently still lacks meaningful plans for [...] last 3 mo. I think that her huslia Dry wt = 97.5 kg? 3. SHPTH--not [...] our office, myself or Dr. Ibarra. : Lak[place] Fina Joy M.D., Pediatric Nephrology, [place] [...] [place] | | | | | | [place] [address] | | | | | | [phone] | | | | | | | | +--------+---------+ + + + documented as of this encounter Visit Diagnoses + + | Diagnosis | + + | ESRD (end stage renal disease) (HCC) - Primary End stage renal disease | + + documented in this encounter"
--- OUTSIDE RECORDS SUMMARY | ~2019-03-08 | XMS | Encounter Summary ---
Demographics + + + | Address | [address] | | | [place] [address] | + + + | Home Phone [...] | Author | [facility] | | | and Josephana | + + + | Organization | [facility] [...] Providers + +------+ + | Care Machine Printer Name | Role | Phone | [...] | Encounter | JOY | MD Emanuel [address] | | | | | [address]PART[address] | [facility] | | | | | [address] | [place], [place] | | | | | [place], [place] | [address] | | | | | [address] | [phone] | | | | | [phone] | | | +--------+ + + + [...] [place] | | | | | | [place] [address] | | | | | | [phone] | | | | | | | | +--------+---------+ + + + documented as of this encounter Visit Diagnoses Not on filedocumented in this encounter"
--- OUTSIDE RECORDS SUMMARY | ~2019-03-08 | XMS | Encounter Summary ---
Demographics + + + | Address | [address] | | | [place] [address] | + + + | Home Phone [...] | | | | | [place] [address] | | + + + + + | Thania Mallory | ECON | [address] | | | | | [place] [address] | | + + + + + | Deidra Weldon | ECON | [address] | | | | | [place] | | | | | [address] | | + + + + + [...] to | | | | [address] [place], | [place], [place] | contact pt re move | | | | [place] [address] | [address] | and new PAF as | | | | [phone] | | listed) | +--------+ + + [...] [place] | | | | | | [address] | | | | | | [phone] | | | | | | | | +--------+ + + + + documented as of this encounter Visit Diagnoses Not on filedocumented in this encounter"
--- OUTSIDE RECORDS SUMMARY | ~2019-03-08 | XMS | Encounter Summary ---
Demographics + + + | Address | [address] | | | [place] [address] | + + + | Home Phone [...] | Author | [facility] | | | and Josephana | + + + | Organization | [facility] [...] Providers + +------+ + | Care General Road Production Manager Name | Role | Phone [...] | | KIDNEY TRANSPLANT | [address] [place], | | | | | [address] [place] | [place] [address] | | | | | [address] [place], [place] | [phone] | | | | | [address] | | | | | | [phone] | | | +--------+ + + + [...] [place]SON | | | | | | [place] [address] | | | | | | [phone] | | | | | | | | +--------+---------+ + + + documented as of this encounter Visit Diagnoses Not on filedocumented in this encounter"
--- OUTSIDE RECORDS SUMMARY | ~2019-03-08 | XMS | Encounter Summary ---
Demographics + + + | Address | [address] | | | [place] [address] | + + + | Home Phone [...] | | | | | [place] [address] | | + + + + + | Thania Mallory | ECON | [address] | | | | | [place] [address] | | + + + + + | Deidra Weldon | ECON | [address] | | | | | [place] | | | | | [address] | | + + + + + Care Team Providers + +------+ + | Care Basting Marker Name | Role | Phone | [...] | | | | | [address] [facility] | [facility] | | | | | Park [facility], | [place], [place] | | | | | [place] [address] | [address] | | | | | [phone] | | | +--------+ + + + [...] [place] | | | | | | [address] | | | | | | [phone] | | | | | | | | +--------+ + + + + documented as of this encounter Visit Diagnoses Not on filedocumented in this encounter"
--- OUTSIDE RECORDS SUMMARY | ~2019-03-08 | XMS | Encounter Summary ---
Demographics + + + | Address | [address] | | | [place] [address] | + + + | Home Phone [...] + + + | Author | and [facility] | | | and Josephana | + + + | Organization | and [facility] | | [...] Team Providers + +------+ + | Care Robot Operator Name | Role | Phone | [...] [address] [place] | [place] [address] | to return call to | | | | [address] | [phone] | complete intake | | | | [address] | | quest.) | | | | [phone] | | | +--------+ + + + [...] DAV[place]SON | | | | | | [place] [address] | | | | | | [phone] | | | | | | | | +--------+---------+ + + + documented as of this encounter Visit Diagnoses Not on filedocumented in this encounter"
--- OUTSIDE RECORDS SUMMARY | ~2019-03-08 | XMS | Encounter Summary ---
Demographics + + + | Address | [address] | | | [place] [address] | + + + | Home Phone [...] Author | [facility] | | | and Josephana | + + + | Organization | [facility] [...] Providers + +------+ + | Care Cleaner Furniture Name | Role | Phone | [...] NEPHROLOGY [address] | M, DO [address] [employer] | | | | | [address] | [place], [address] | | | | | [place], [place] | [place], [place] | | | | | [address] | [address] | | | | | [phone] | | | +--------+ + + + [...] at either [facility] or [facility]? 6. Anemia--will continue the EPO at current dose and recheck the Fe stores next quarter. Plan: 1. Her PTH appears stable on a minimal dose of Hectorol. 2. Will continue to monitor her BP closely. 3. She appears very cooperative and collegial here in clinic. CC: [place] Fina documented in thi s encounter Plan [...] [place] | | | | | | [place] [address] | | | | | | [phone] | | | | | | | | +--------+---------+ + + + documented as of this encounter Visit Diagnoses Not on filedocumented in this encounter"
--- OUTSIDE RECORDS SUMMARY | ~2019-03-08 | XMS | Encounter Summary ---
Demographics + + + | Address | [address] | | | [place] [address] | + + + | Home Phone [...] | | | | | [place] [address] | | + + + + + | Thania Mallory | ECON | [address] | | | | | [place] [address] | | + + + + + | Deidra Weldon | ECON | [address] | | | | | [place] | | | | | [address] | | + + + + + Care Team Providers + +------+ + | Care Textile Dyer Name | Role | Phone | [...] | Nephrology at | MD Emanuel [address] [facility] | | | | | Alexander | [facility] | | | | | [facility] | [place], [place] | | | | | [address] [facility] | [address] | | | | | Mailcode: DCAnna | [phone] | | | | | Alexander | | | | | | [place], [place] | | | | | | [address] | | | | | | [phone] | | | +--------+--------+ + + + [...] Denise | | | | | | [place], [place] | | | | | | [address] | | | | | | [phone] | | | | | | | | +--------+ + + + + documented as of this encounter Visit Diagnoses Not on filedocumented in this encounter"
--- OUTSIDE RECORDS SUMMARY | ~2019-03-08 | XMS | Encounter Summary ---
Demographics + + + | Address | [address] | | | [place] [address] | + + + | Home Phone [...] | Author | [facility] | | | and Josephana | + + + | Organization | [facility] [...] Team Providers + +------+ + | Care Camera Prototyping Engineer Name | Role | Phone | [...] | NEPHROLOGY [address] | renal disease) ([facility]) | | | | [address] | [address] [place] | (Primary Dx); | | | | [place], [place] | [place] [address] | Secondary | | | | [address] | [phone] | hyperparathyroidism | | | | [phone] | | ([facility]); | | | [...] [place] | | | | | | [place] [address] | | | | | | [phone] | | | | | | | [...]
--- OUTSIDE RECORDS SUMMARY | ~2019-03-08 | XMS | Encounter Summary ---
Demographics + + + | Address | [address] | | | [place] [address] | + + + | Home Phone [...] | Author | [facility] | | | and Jsoephana | + + + | Organization | [facility] | [...] + +------+ + | Care Fusing Machine Tender Name | Role | Phone [...] + + | 12/19/ | Telephone | [facility] | George Torres RN | Congestive Heart | | 2019 | | [address] | | Failure (Reviewed | | | | [place], [place] | | for CHF Quality | | | | [address] | | Measures) | | | | [phone] | | | +--------+ + + + [...] [place] | | | | | | [place] [address] | | | | | | [phone] | | | | | | | | +--------+---------+ + + + documented as of this encounter Visit Diagnoses Not on filedocumented in this encounter"
--- OUTSIDE RECORDS SUMMARY | ~2019-03-08 | XMS | Encounter Summary ---
Demographics + + + | Address | [address] | | | [place] [address] | + + + | Home Phone [...] | Author | [facility] | | | and Josephana | + + + | Organization | [facility] | [...] Team Providers + +------+ + | Care Octave Board Racker Name | Role | Phone | + [...] Dx); Panic disorder | | | | [place], [place] | | | | | | [address] | | | | | | [phone] | | | +--------+ + + + [...] [place] | | | | | | [place] [address] | | | | | | [phone] | | | | | | | | +--------+---------+ + + + documented as of this encounter Visit Diagnoses + + | Diagnosis | + + | Generalized anxiety disorder - Primary | + + | Panic disorder Panic disorder without agoraphobia | + + documented in this encounter"
--- OUTSIDE RECORDS SUMMARY | ~2019-03-08 | XMS | Encounter Summary ---
[...] | [facility] | | | and Josephana | + + + | Organization | [facility] | [...] + +------+ + | Care Director Of [employer] Name | Role | Phone | [...] | NEPHROLOGY [address] | [address] | | | | | [address] | [address] [place] | | | | | [place], [place] | [place] [address] | | | | | [address] | [phone] | | | | | [phone] | | | +--------+ + + + [...] | | | | | [place] [address] | | | | | | [phone] | | | | | | | | +--------+---------+ + + + documented as of this encounter Visit Diagnoses Not on filedocumented in this encounter"
--- OUTSIDE RECORDS SUMMARY | ~2019-03-08 | XMS | Encounter Summary ---
Demographics + + + | Address | [address] | | | [place] [address] | + + + | Home Phone [...] | | | | | [place] [address] | | + + + + + | Thania Mallory | ECON | [address] | | | | | [place] [address] | | + + + + + | Deidra Weldon | ECON | [address] | | | | | [place] | | | | | [address] | | + + + + + Care Team Providers + +------+ + | Care Bridge Crane Operator Name | Role | Phone [...] | | | | | [place], | [place], [place] | | | | | [place] [address] | [address] | | | | | [phone] | | | +--------+ + + + [...] Denise | | | | | | [place] | | | | | | [address] | | | | | | [phone] | | | | | | | | +--------+ + + + + documented as of this encounter Visit Diagnoses Not on filedocumented in this encounter"
--- OUTSIDE RECORDS SUMMARY | ~2019-03-08 | XMS | Clinical Summary ---
Demographics + + + | Address | [address] | | | [place] [address] | + + + | Home Phone [...] | | | | | [place] [address] | | + + + + + | Thania Mallory | ECON | [address] | | | | | [place] [address] | | + + + + + | Deidra Weldon | ECON | [address] | | | | | [place], [place] | | | | | [address] | | + + + + + Care Team Providers + +------+ + | Care Finish Mender Name | Role | Phone | + +------+ + | Jonathan Alonso MD | PCP | | + +------+ + Source Comments DANILO is fully live on both EpicCare Ambulatory and EpicCare InPatient.[facility] Allergies + + + + [...] | | | | | | [place], [place] | | | | | | [address] | | | | | | [phone] | | | | | | | [...] | | | | | | | [address] | | + +--------+ +--------+ + +--------+ | TYPEWRITER OPERATOR AUTOMATIC MEDICAID | TYPEWRITER OPERATOR AUTOMATIC | [id number] | Effect | | | [...] | RENAL | | for | | [place], | | | | RECIPI | | all | | [place] [address] | | | | ENT | | [...] | | al/Fam | | 1995 | [phone] | [address] [place] | | | kamron | | | 2 (Home) | [address] | | | | | | [phone] | | | | | | | 0 (Work) | | + +--------+ +--------+ + + | CORY ALVES | Wanderbhavin | Mother | [birth year] | | [address] | | | l | | [address] | [phone] | [address] [place] | | | Gamal | | | 2 (Home) | [address] | | | g | | | | | + +--------+ +--------+ + +
--- OUTSIDE RECORDS SUMMARY | ~2019-03-08 | XMS | Encounter Summary ---
Demographics + + + | Address | [address] | | | [place] [address] | + + + | Home Phone [...] | | | | | [place] [address] | | + + + + + | Thania Mallory | ECON | [address] | | | | | [place] [address] | | + + + + + | Deidra Weldon | ECON | [address] | | | | | [place] | | | | | [address] | | + + + + + Care Team Providers + +------+ + | Care Front Office Developer Name | Role | Phone | [...] | | | [address] | [facility] | | | | | Park [facility], | [place], [place] | | | | | [place] [address] | [address] | | | | | [phone] | | | +--------+ + + + [...] [facility] | | | | | | [address] | | | | | | [phone] | | | | | | | | +--------+ + + + + documented as of this encounter Visit Diagnoses Not on filedocumented in this encounter"
--- OUTSIDE RECORDS SUMMARY | ~2019-03-08 | XMS | Encounter Summary ---
Demographics + + + | Address | [address] | | | [place] [address] | + + + | Home Phone [...] Author | [facility] | | | and Josephana | + + + | Organization | [facility] | | | and [...] Team Providers + +------+ + | Care Ophthalmic Technologist Name | Role | Phone | [...] KIDNEY TRANSPLANT | [address] [place], | | | | | [address] [place] | [place] [address] | | | | | [address] [place] [address] | [phone] | | | | | [address] | | | | | | [phone] | | | +--------+ + + + [...] card. I also called the [facility] nursing home social worker, and let her know t [...] | | | | | [place] [address] | | | | | | [phone] | | | | | | | | +--------+---------+ + + + documented as of this encounter Visit Diagnoses Not on filedocumented in this encounter"
--- OUTSIDE RECORDS SUMMARY | ~2019-03-08 | XMS | Encounter Summary ---
Demographics + + + | Address | [address] | | | [place] [address] | + + + | Home Phone [...] | | | | | [place] [address] | | + + + + + | Thania Mallory | ECON | [address] | | | | | [place] [address] | | + + + + + | Deidra Weldon | ECON | [address] | | | | | [place] | | | | | [address] | | + + + + + Care Team Providers + +------+ + | Care Salvation Army Officer Name | Role | Phone | [...] | | [address] | [facility] | referral) | | | | [facility], | [place], [place] | | | | | [place] [address] | [address] | | | | | [phone] | | | +--------+ + + + [...] [place] | | | | | | [address] | | | | | | [phone] | | | | | | | | +--------+ + + + + documented as of this encounter Visit Diagnoses Not on filedocumented in this encounter"
--- OUTSIDE RECORDS SUMMARY | ~2019-03-08 | XMS | Encounter Summary ---
Demographics + + + | Address | [address] | | | [place] [address] | + + + | Home Phone [...] Providers + +------+ + | Care Procurement Intern Name | Role | Phone | [...] + + | 01/22/ | Refill | [facility] | Daniela Alejandre | Medication Refill | | 2018 | | CARDIOLOGY GERALD Castellanos Safety And Occupational Health Manager | | | | | [address] | | | | | | [place] | | | | | | [address] | | | | | | [phone] | | | +--------+--------+ + + + [...] [place] | | | | | | [place] [address] | | | | | | [phone] | | | | | | | | +--------+---------+ + + + documented as of this encounter Visit Diagnoses Not on filedocumented in this encounter"
--- OUTSIDE RECORDS SUMMARY | ~2019-03-08 | XMS | Encounter Summary ---
Demographics + + + | Address | [address] | | | [place] [address] | + + + | Home Phone [...] | | | | | [place] [address] | | + + + + + | Thania Mallroy | ECON | [address] | | | | | [place] [address] | | + + + + + | Deidra Weldon | ECON | [address] | | | | | [place] | | | | | [address] | | + + + + + Care Team Providers + +------+ + | Care Plant Technical Specialist Name | Role | Phone | [...] | Nephrology at | MD Emanuel [address] [facility] | | | | | [place] | [facility] | | | | | [facility] | [place], [place] | | | | | [address] [facility] | [address] | | | | | Mailcode: [id number] | [phone] | | | | | [place] | | | | | | [place], [place] | | | | | | [address] | | | | | | [phone] | | | +--------+ + + + [...] Ave | | | | | | [place], [place] | | | | | | [address] | | | | | | [phone] | | | | | | | [...] [address] | [place] [address] | [phone] | | HOSPITAL | | | | [...] | [address] | [place] [address] | [phone] | | HOSPITAL | | | | + + + + + documented in this encounter Visit Diagnoses Not on filedocumented in this encounter"
--- OUTSIDE RECORDS SUMMARY | ~2019-03-08 | XMS | Encounter Summary ---
Demographics + + + | Address | [address] | | | [place] [address] | + + + | Home Phone [...] | | | | | [place] [address] | | + + + + + | Thania Mallory | ECON | [address] | | | | | [place] [address] | | + + + + + | Deidra Weldon | ECON | [address] | | | | | [place] | | | | | [address] | | + + + + + Care Team Providers + +------+ + | Care Outside Industrial Sales Representative Name | Role | Phone [...] | | | [address] | [facility] | | | | | Park [facility], | [place], [place] | | | | | [place] [address] | [address] | | | | | [phone] | | | +--------+ + + + [...] Denise | | | | | | [place] | | | | | | [address] | | | | | | [phone] | | | | | | | | +--------+ + + + + documented as of this encounter Visit Diagnoses Not on filedocumented in this encounter"
--- OUTSIDE RECORDS SUMMARY | ~2019-03-08 | XMS | Encounter Summary ---
Demographics + + + | Address | [address] | | | [place] [address] | + + + | Home Phone [...] | Author | [facility] | | | and Josephana | + + + | Organization | [facility] [...] Providers + +------+ + | Care Veterinarian Poultry Name | Role | Phone | + [...] NEPHROLOGY [address] | MD [address] | | | | | [address] | [address] [place] | | | | | [place], [place] | [place] [address] | | | | | [address] | [phone] | | | | | [phone] | | | +--------+ + + + [...] [place] | | | | | | [place] [address] | | | | | | [phone] | | | | | | | | +--------+---------+ + + + documented as of this encounter Visit Diagnoses Not on filedocumented in this encounter"
--- OUTSIDE RECORDS SUMMARY | ~2019-03-08 | XMS | Encounter Summary ---
Demographics + + + | Address | [address] | | | [place] [address] | + + + | Home Phone [...] | | | | | [place] [address] | | + + + + + | Thania Mallory | ECON | [address] | | | | | [place] [address] | | + + + + + | Deidra Weldon | ECON | [address] | | | | | [place] | | | | | [address] | | + + + + + Care Team Providers + +------+ + | Care Hospice Director Name | Role | Phone | + +------+ + PCP | Unavailable | + +------+ + Encounter Details +--------+ + + + + | Date | Type | Department | Care Team | Description | +--------+ + + + + | 03/22/ | Abstract | Pediatric | Sudhakar Joy | | | 2013 | | Nephrology at | MD Emanuel [address] [facility] | | | | | [place] | Elias [place] | | | | | [facility] | [place], [place] | | | | | [address] [facility] | [address] | | | | | Mailcode: [id number] | [phone] | | | | | [place] | | | | | | [place], [place] | | | | | | [address] | | | | | | [phone] | | | +--------+ + + + [...] Denise | | | | | | [place], [place] | | | | | | [address] | | | | | | [phone] | | | | | | | [...] - | | | | | | [place] | | + + + + + [...] + + | [facility] | [address] | [place] | [phone] | | [place] | | | | + + + + + documented in this encounter Visit Diagnoses Not on filedocumented in this encounter"
--- OUTSIDE RECORDS SUMMARY | ~2019-03-08 | XMS | Encounter Summary ---
Demographics + + + | Address | [address] | | | [place] [address] | + + + | Home Phone [...] Author | [facility] | | | and Josephana | + + + | Organization | [facility] | | | [...] Team Providers + +------+ + | Care Phlebotomy Technician Name | Role | Phone | + +------+ + PCP | Unavailable | + +------+ + Encounter Details +--------+ + + + + | Date | Type | Department | Care Team | Description | +--------+ + + + + | 08/21/ | Hospital | [facility] | Conversion | End stage renal | | 2015 | Encounter | CENTER CV INTRA OP | Transaction, | disease (HCC); | | | | [address] | Provider Unknown | Mechanical | | | | [place], [place] | [phone] | complication of | | | | [address] | | other vascular | | | | [phone] | Darryn Whaley, | device, implant, and | | | | | [address] | graft (HCC) | | | | | [address]VE [place], [place] | | | | | | [address] | | | | | | [...] E | | | | | | [place] [address] | | | | | | [phone] | | | | | | | [...] venous anastomosis without incidence. | | | 364[address], [address], 71430, [address] | | + + + + + [...] conscious sedation and | | | independent jail supervision performed throughout the | | | [...] | | | needle and exchanged for 4-Marshallese micropuncture sheath. Initial | | | fistula [...] | | needle and exchanged for 4 Marshallese short sheath over 0.03, angled | | | Glidewire. Subsequently, Glidewire was exchanged for 0.014, mailman | | | wire over 4 Marshallese angled glide catheter. Then, 4 mm x [...] adequate conscious sedation and independent | | jail supervision performed throughout the procedure. PROCEDURE: [...] micropuncture needle and exchanged | | for 4-Marshallese micropuncture sheath. Initial fistula pressure was obtained [...] | micropuncture needle and exchanged for 4 Marshallese short sheath over 0.03, angled | | Glidewire. Subsequently, Glidewire was exchanged for 0.014, mailman wire over 4 Marshallese | | angled glide catheter. Then, 4 [...] arterial venous | | anastomosis without incidence. 58583, 81465, 43435, 36412 | | | | | |[address]887, 38786, 13640, 89036 | | | | | + + [...] venous anastomosis without incidence. | | | [address], 10828, 542[address], [address] | | + + + + + [...] conscious sedation and | | | independent jail supervision performed throughout the | | | [...] | | | needle and exchanged for 4-Marshallese micropuncture sheath. Initial | | | fistula [...] | | needle and exchanged for 4 Marshallese short sheath over 0.03, angled | | | Glidewire. Subsequently, Glidewire was exchanged for 0.014, mailman | | | wire over 4 Marshallese angled glide catheter. Then, 4 mm x [...] adequate conscious sedation and independent | | jail supervision performed throughout the procedure. PROCEDURE: [...] micropuncture needle and exchanged | | for 4-Marshallese micropuncture sheath. Initial fistula pressure was obtained [...] | micropuncture needle and exchanged for 4 Marshallese short sheath over 0.03, angled | | Glidewire. Subsequently, Glidewire was exchanged for 0.014, mailman wire over 4 Marshallese | | angled glide catheter. Then, 4 [...] arterial venous | | anastomosis without incidence. 95890, 81050, 52791, 79092 | | | | | |[address], 35[address], 10724, [address] | | | | | + + documented in this encounter Visit Diagnoses + + | Diagnosis | + + | End stage renal disease (HCC) End stage renal disease | + + | Mechanical complication of other vascular device, implant, and graft | + + documented in this encounter"
--- OUTSIDE RECORDS SUMMARY | ~2019-03-08 | XMS | Encounter Summary ---
Demographics + + + | Address | [address] | | | [place] [address] | + + + | Home Phone [...] | | | | | [place] [address] | | + + + + + | Thania Mallory | ECON | [address] | | | | | [place] [address] | | + + + + + | Deidra Weldon | ECON | [address] | | | | | [place] | | | | | [address] | | + + + + + Care Team Providers + +------+ + | Care Energy Attorney Name | Role | Phone | [...] | | | | [address] | [facility] | | | | | [place], [place] | [place] [address] | | | | | [address] | [phone] | | | | | | | [...] Denise | | | | | | [place], [place] | | | | | | [address] | | | | | | [phone] | | | | | | | | +--------+ + + + + documented as of this encounter Visit Diagnoses Not on filedocumented in this encounter"
--- OUTSIDE RECORDS SUMMARY | ~2019-03-08 | XMS | Encounter Summary ---
Demographics + + + | Address | [address] | | | [place] [address] | + + + | Home Phone [...] | Author | [facility] | | | and Josephana | + + + | Organization | [facility] [...] Providers + +------+ + | Care Food Dehydrator Operator Name | Role | Phone | [...] NEPHROLOGY [address] | M, DO [address] | | | | | [address] | [place] | | | | | [place], [place] | [place], [place] | | | | | [address] | [address] | | | | | [phone] | | | +--------+ + + + [...] in her mid left upper arm AVF. X RAY DEVELOPER today = 230 mmHg. In view of this will start her on ASA 81 mg, QD, and Plavix 75 mg, daily for prevention of AVF thrombosis, given the former indwelling stent. She was called by chronic care nurseElisabeth to begin above. : [facility] documented in this encounter Plan [...] | | | | | [place] [address] | | | | | | [phone] | | | | | | | | +--------+---------+ + + + documented as of this encounter Visit Diagnoses Not on filedocumented in this encounter
--- OUTSIDE RECORDS SUMMARY | ~2019-03-08 | XMS | Encounter Summary ---
Demographics + + + | Address | [address] | | | [place] [address] | + + + | Home Phone [...] | | | | | [place] [address] | | + + + + + | Thania Mallory | ECON | [address] | | | | | [place] [address] | | + + + + + | Deidra Weldon | ECON | [address] | | | | | [place] | | | | | [address] | | + + + + + Care Team Providers + +------+ + | Care Felt Coverer Name | Role | Phone | + [...] | | | | | [place], | | | | | | [place] [address] | | | +--------+ + + + [...] Denise | | | | | | [place], [place] | | | | | | [address] | | | | | | [phone] | | | | | | | [...] DANILO - | [address], | [place] [address] | | | IMMUNOGENETICS/TRANS | [address] | | | | [facility] | | | | + + + + + documented in this encounter Visit Diagnoses Not on filedocumented in this encounter"
--- OUTSIDE RECORDS SUMMARY | ~2019-03-08 | XMS | Encounter Summary ---
Demographics + + + | Address | [address] | | | [place] [address] | + + + | Home Phone [...] | | | | | [place] [address] | | + + + + + | Thania Mallory | ECON | [address] | | | | | [place] [address] | | + + + + + | Deidra Weldon | ECON | [address] | | | | | [place] | | | | | [address] | | + + + + + Care Team Providers + +------+ + | Care Site Auditor Name | Role | Phone | [...] | | | | Dea Jane | [place], [place] | | | | | [place], [place] | [address] | | | | | [address] | | | | | | [phone] | | | +--------+ + + + [...] Denise | | | | | | [place] | | | | | | [address] | | | | | | [phone] | | | | | | | | +--------+ + + + + documented as of this encounter Visit Diagnoses Not on filedocumented in this encounter"
--- OUTSIDE RECORDS SUMMARY | ~2019-03-08 | XMS | Encounter Summary ---
Demographics + + + | Address | [address] | | | [place] [address] | + + + | Home Phone [...] + | Author | [facility] | | | and Josephana | + + + | Organization | [facility] | [...] Providers + +------+ + | Care Auto Hauler Name | Role | Phone | + +------+ + PCP | Unavailable | + +------+ + Encounter Details +--------+ + + + + | Date | Type | Department | Care Team | Description | +--------+ + + + + | 05/14/ | Hospital | [facility] | Michelle Benitez, | | | 2008 | Encounter | HOSPITAL EMERGENCY | [address] | | | | | CENTER [address] | [place], [place] | | | | | [address] [place] | [address] | | | | | [address] | [phone] | | | | | [phone] | | | +--------+ + + + [...] [place] | | | | | | [place] [address] | | | | | | [phone] | | | | | | | | +--------+---------+ + + + documented as of this encounter Visit Diagnoses Not on filedocumented in this encounter"
--- OUTSIDE RECORDS SUMMARY | ~2019-03-08 | XMS | Encounter Summary ---
Demographics + + + | Address | [address] | | | [place] [address] | + + + | Home Phone [...] | | | | | [place] [address] | | + + + + + | Thania Mallory | ECON | [address] | | | | | [place] [address] | | + + + + + | Deidra Weldon | ECON | [address] | | | | | [place] | | | | | [address] | | + + + + + Care Team Providers + +------+ + | Care Packer Denture Name | Role | Phone | + [...] | | | | [address] [place] | [facility] | | | | | [place], | [place], [place] | | | | | [place] [address] | [address] | | | | | [phone] | | | +--------+ + + + [...] | | | | | | [place] | | | | | | [address] | | | | | | [phone] | | | | | | | | +--------+ + + + + documented as of this encounter Visit Diagnoses Not on filedocumented in this encounter"
--- OUTSIDE RECORDS SUMMARY | ~2019-03-08 | XMS | Encounter Summary ---
Demographics + + + | Address | [address] | | | [place] [address] | + + + | Home Phone [...] | Author | [facility] | | | and Josephana | + + + | Organization | [facility] [...] Providers + +------+ + | Care Recreational Programs Director Name | Role | Phone | [...] NEPHROLOGY [address] | M, DO [address] | | | | | [address] | [place] | | | | | [place], [place] | [place], [place] | | | | | [address] | [address] | | | | | [phone] | | | +--------+ + + + [...] [place] | | | | | | [place] [address] | | | | | | [phone] | | | | | | | | +--------+---------+ + + + documented as of this encounter Visit Diagnoses Not on filedocumented in this encounter"
--- OUTSIDE RECORDS SUMMARY | ~2019-03-08 | XMS | Encounter Summary ---
Demographics + + + | Address | [address] | | | [place] [address] | + + + | Home Phone [...] | Author | [facility] | | | and Josephana | + + + | Organization | [facility] | | [...] Providers + +------+ + | Care Cap Parts Cutter Name | Role | Phone | [...] stage renal | [address] | [address] [place] [address] | | | | | disease) | Shun Griffin | Jaciel Gotti | | | | | ([facility]) | [address] | [address] | | | | | Anemia in | [place], [place] | [place] | | | | | ESRD | [address] | [address] Phone: | | | | | (end-stage | Phone: | [phone] | | | | | renal | [phone] | Fax: | | | | | disease) | Fax: | [phone] | | | | | ([facility]) | [phone] | | | | | | Procedures | | | | | | | [place] OFFICE | | | | | | [...] | | [address] | [place] | (Primary Dx) | | | | [place], [place] | [place], [place] | | | | | [address] | [address] | | | | | [phone] | | | +--------+ + + + [...] is seen on the MWF shift at [place]. 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 Sadly, efforts at counseling by multiple caregivers including Dr. Ibarra, myself, Staff Nurs es, and Clinic GRAPHICS EDIT TECHNICIAN have failed to reach her. She continues [...] Will recheck her in 2 weeks. : Blackwell Fina Joy M.D., Pediatric Nephrology, [facility] documented in t his encounter [...] [place] | | | | | | [place] [address] | | | | | | [phone] | | | | | | | | +--------+---------+ + + + documented as of this encounter Visit Diagnoses + + | Diagnosis | + + | ESRD (end stage renal disease) (HCC) - Primary End stage renal disease | + + documented in this encounter"
--- OUTSIDE RECORDS SUMMARY | ~2019-03-08 | XMS | Encounter Summary ---
Demographics + + + | Address | [address] | | | [place] [address] | + + + | Home Phone [...] | | | | | [place] [address] | | + + + + + | Thania Mallory | ECON | [address] | | | | | [place] [address] | | + + + + + | Deidra Weldon | ECON | [address] | | | | | [place] | | | | | [address] | | + + + + + Care Team Providers + +------+ + | Care Die Barber Name | Role | Phone | + [...] | | | [address] | [facility] | recommendations) | | | | [address] [place], | [place], [place] | | | | | [place] [address] | [address] | | | | | [phone] | | | +--------+ + + + [...] | | | | | [place] | | | | | | [address] | | | | | | [phone] | | | | | | | | +--------+ + + + + documented as of this encounter Visit Diagnoses Not on filedocumented in this encounter"
--- OUTSIDE RECORDS SUMMARY | ~2019-03-08 | XMS | Encounter Summary ---
Demographics + + + | Address | [address] | | | [place] [address] | + + + | Home Phone [...] | | | | | [place] [address] | | + + + + + | Thania Mallory | ECON | [address] | | | | | [place] [address] | | + + + + + | Deidra Weldon | ECON | [address] | | | | | [place] | | | | | [address] | | + + + + + Care Team Providers + +------+ + | Care Trust Advisor Name | Role | Phone | [...] Nephrology at | MD Emanuel [address] [facility] | | | | | Alexander | [facility] | | | | | [facility] | [place], [place] | | | | | [address] [facility] | [address] | | | | | Mailcode: DCH7 | [phone] | | | | | Alexander | | | | | | [place], [place] | | | | | | [address] | | | | | | [phone] | | | +--------+ + + + [...] Ave | | | | | | [place], [place] | | | | | | [address] | | | | | | [phone] | | | | | | | [...]
--- OUTSIDE RECORDS SUMMARY | ~2019-03-08 | XMS | Encounter Summary ---
Demographics + + + | Address | [address] | | | [place] [address] | + + + | Home Phone [...] | [facility] | | | and Josephana | + + + | Organization | [facility] [...] Providers + +------+ + | Care Parole Director Name | Role | Phone | [...] [place] | | | | | | [address] | | | | | | [phone] | | | +--------+ + + + [...] DAV[place] | | | | | | [place] [address] | | | | | | [phone] | | | | | | | | +--------+---------+ + + + documented as of this encounter Visit Diagnoses Not on filedocumented in this encounter"
--- OUTSIDE RECORDS SUMMARY | ~2019-03-08 | XMS | Encounter Summary ---
Demographics + + + | Address | [address] | | | [place] [address] | + + + | Home Phone [...] Author | [facility] | | | and Josephana | + + + | Organization | [facility] [...] Team Providers + +------+ + | Care Checker/Stocker Name | Role | Phone | + [...] + | 02/28/ | Telephone | [facility] | Blake Chavarria | Appointment (Post | | 2013 | | SURGERY [address] | MD Antonieta, FACS [address] | Op) | | | | [place], [place] | [address] | | | | | [address] | [place] [address] | | | | | [phone] | [phone] | | | | | | | [...] DAV[place]SON | | | | | | [place] [address] | | | | | | [phone] | | | | | | | | +--------+---------+ + + + documented as of this encounter Visit Diagnoses Not on filedocumented in this encounter"
--- OUTSIDE RECORDS SUMMARY | ~2019-03-08 | XMS | Encounter Summary ---
Demographics + + + | Address | [address] | | | [place] [address] | + + + | Home Phone [...] | | | | | [place] [address] | | + + + + + | Thania Mallory | ECON | [address] | | | | | [place] [address] | | + + + + + | Deidra Weldon | ECON | [address] | | | | | [place] | | | | | [address] | | + + + + + Care Team Providers + +------+ + | Care Fiberglasser Name | Role | Phone | + [...] | | | [address] | [facility] | | | | | [address] [place], | [place], [place] | | | | | [place] [address] | [address] | | | | | [phone] | | | +--------+ + + + [...] Denise | | | | | | [place], [place] | | | | | | [address] | | | | | | [phone] | | | | | | | | +--------+ + + + + documented as of this encounter Visit Diagnoses Not on filedocumented in this encounter"
--- OUTSIDE RECORDS SUMMARY | ~2019-03-08 | XMS | Encounter Summary ---
Demographics + + + | Address | [address] | | | [place] [address] | + + + | Home Phone [...] | | | | | [place] [address] | | + + + + + | Thania Mallory | ECON | [address] | | | | | [place] [address] | | + + + + + | Deidra Weldon | ECON | [address] | | | | | [place] | | | | | [address] | | + + + + + Care Team Providers + +------+ + | Care Qlikview Developer Name | Role | Phone | [...] | [address] | [address] [place], | | | | | [place], | [place] [address] | | | | | [place] [address] | | | | | | [phone] | | | +--------+ + + + [...] Denise | | | | | | [place] | | | | | | [address] | | | | | | [phone] | | | | | | | | +--------+ + + + + documented as of this encounter Visit Diagnoses Not on filedocumented in this encounter"
--- OUTSIDE RECORDS SUMMARY | ~2019-03-08 | XMS | Encounter Summary ---
Demographics + + + | Address | [address] | | | [place] [address] | + + + | Home Phone [...] | | | | | [place] [address] | | + + + + + | Thania Mallory | ECON | [address] | | | | | [place] [address] | | + + + + + | Deidra Weldon | ECON | [address] | | | | | [place] | | | | | [address] | | + + + + + Care Team Providers + +------+ + | Care Room Cleaner Name | Role | Phone | [...] | Nephrology at | MD Emanuel [address] [facility] | Requested (UDS) | | | | [place] | [address] | | | | | [facility] | [place], [place] | | | | | [address] [facility] | [address] | | | | | Mailcode: DCH7 | [phone] | | | | | Alexander | | | | | | [place], [place] | | | | | | [address] | | | | | | [phone] | | | +--------+ + + + [...] Denise | | | | | | [place], [place] | | | | | | [address] | | | | | | [phone] | | | | | | | | +--------+ + + + + documented as of this encounter Visit Diagnoses Not on filedocumented in this encounter"
--- OUTSIDE RECORDS SUMMARY | ~2019-03-08 | XMS | Encounter Summary ---
Demographics + + + | Address | [address] | | | [place] [address] | + + + | Home Phone [...] | | | | | [place] [address] | | + + + + + | Deidra Weldon | ECON | [address] | | | | | [place] | | | | | [address] | | + + + + + Care Team Providers + +------+ + | Care Public Information Officer Name | Role | Phone [...] Dr | | | | | ([facility]) | [address] [place] | Mailcode: | | | | | Procedures | [address] | DCH8S | | | | | TRANSTHORACI | [place], [place] | Alexander | | | | | C | [address] | [place], [place] | | | | | ECHOCARDIOGR | Phone: | [phone] | | | | | AM, PEDS | [phone] | Phone: | | | | | | Fax: | [phone] | | | | | | [phone] | Fax: | | | | | | | [phone] | +--------+--------+ + + + + Reason [...] | | [address] | [facility] | | | | | [address] [place], | [place], [place] | | | | | [place] [address] | [address] | | | | | [phone] | | | +--------+ + + + [...] Denise | | | | | | [place], [place] | | | | | | [address] | | | | | | [phone] | | | | | | | [...] view image for the detailed interpretation from [employer] results. | CARDIOLOGY | + + + [...] + + | [facility] | [address] | [place], [place] | | | CARDIOLOGY | [address] | [address] | | + + + + + LIT SRUTHI-B WILEY ZHANG (12/20/2012 10:02 AM PDT) + + | Specimen | + + | Blood - Blood | + + + + + + + | Performing | Address | City/State/Zipcode | Phone Number | | Organization | | | | + + + + + | [facility] - | [address] | [place] [address] | | | IMMUNOGENETICS/TRANS | [address] [...] [facility] - | [address] | [place] [address] | | | IMMUNOGENETICS/TRANS | [address] [...] - | [address] | [place], [place] | | | IMMUNOGENETICS/TRANS | [address] [...] - | [address] | [place], [place] | | | IMMUNOGENETICS/TRANS | [address] [...] + + | [facility] - | [address] | [place] [address] | | | IMMUNOGENETICS/TRANS | [address] [...] [facility] - | [address] | [place] [address] | | | IMMUNOGENETICS/TRANS | [address] [...] [facility] | | | , SERUM | [facility],[address] | | REG UNIV | | | | [place], [facility] | | PTH - INTFC | | | | [address] | | | | | | [phone]. | | | | | | Faisal [...] [facility] | [address] | [place], [place] | | | UNIV PTH - INTFC | | [address] | | + + + + + [...] | + + + + + | [facility] | [address] | [place] [address] | | | HOMERO LAN | LONG [...] | + + + + + | [facility] | [address] | [place] [address] | | | SERVICES, CORE | LONG [...] + | [facility] - | [address] | [place] [address] | | | [place] | | | [...] + + + + + + | BAY | Jennifer (A) | None /hpf | [...] [facility] | [address] | [place] [address] | | | SERVICES, CORE | PARK [...] | + + + + + | [facility] | [address] | [place] [address] | | | SERVICES, CORE | LONG [...] | + + + + + | [facility] | [address] | [place] [address] | | | SERVICES, CORE | LONG [...] + | [facility] - | [address] | [place] [address] | | | [place] | | | | + + + [...] at: | | | | | | http://www.cdc.gov/nchstp/tb/pubs/tbfactssheets/513257.htm | | | Test performed by: [facility] [address] | | [address] [place] [address] | | + + + + + [...] | + + + + + | [facility] | [address] | [place] [address] | | | SERVICES, SPECIAL | LONG [...] | PROTHROMBIN | No Mutation | | [facility] | | | GENE | | | [...] gene at | DIAGNOSTIC | | nucleotide 86917. Please note that this assay only detects the | LABORATORIES | | [id number] point mutation and therefore a normal result [...] has been analyzed for the presence of [id number] | | | mutation in the prothrombin [...] | | Heterozygotes for the common prothrombin T75421P mutation constitute | | | approximately 2% of the normal white population (1,2). | | | References: 1.) Edwinat et al. Blood 88, 1937-8652 (1996). 2.) Ricardo | | | et al. Circulation 99, 999-1004 (1998). 3.) Al Montalvo, and | | | Chase. Amer J Clin Path 155, 439-47 (2000). This test was | | | developed and its performance characteristics determined by the [facility] | | | [facility] Diagnostic [facility]. It has | | | not been cleared or approved by the Food and Drug Administration. | | | FDA approval is not required for clinical use of this test, and | | | therefore validation was done as required under the requirements of | | | the Clinical Laboratory Improvement Act of 1988. The [facility] | Diagnostic [facility] is a fully | | | licensed and/or accredited clinical laboratory under CLIA, CAP, and | | | the [facility]. Please note that our lab now also [...] + + | Performing | Address | City/State/[facility] | Phone Number | | Organization | | | | + + + + + | [facility] | [address] | [place] [address] | | | DIAGNOSTIC | [address] [...] | + + + + + | [facility] | [address] | [place] [address] | | | SERVICES, CORE | PARK [...] + + + + + | [facility] | [address] | [place] [address] | | | SERVICES, CORE | PARK [...] [facility] | [address] | [place] [address] | | | SERVICES, HOMERO | LONG [...] | + + + + + | [facility] | [address] | [place] [address] | | | HOMERO LAN | LONG [...] | | | | | [place] [address] | | | | | | [phone]. | | | | | | Faisal [...] [facility] | [address] | [place], [place] | | | UNIV PTH - INTFC | | [address] | | + + + + + [...] | + + + + + | [facility] | [address] | [place] [address] | | | SERVICES, SPECIAL | PARK [...] + + + | [facility] | [address] | [place] [address] | | | DIAGNOSTIC | [address] [...] + | [facility] - | [address] | [place] [address] | | | [place] | | | [...] + | [facility] - | [address] | [place] [address] | | | [place] | | | [...] + | [facility] - | [address] | [place] [address] | | | [place] | | | [...] + | [facility] - | [address] | [place] [address] | | | [facility] | | | | + + [...] less......Not | | | | | | Tkiiqwsg10.0-21.9 | | | | | | U/mL.........Indetermina [...] available | | | | | | [email or web address] | | | | | | vdx.Performed by [facility] | | | | | | [facility],[address] | | | | | | [place], [place] [address] | | | | | | [phone]. | | | | | | Faisal [...] [facility] | [address] | [place], [place] | | | UNIV PTH - INTFC | | [address] | | + + + + + [...] + | [facility] - | [address] | [place] [address] | | | [place] | | | | + + + [...] + + + + + | [facility] | [address] | [place] [address] | | | SERVICES, CORE | PARK [...] by | | | | | | [employer],[address] | | | | | | [place], [facility] | | | | | | [address] | | | | | | [phone]. | | | | | | Faisal [...] [facility] | [address] | [place], [place] | | | UNIV PTH - INTFC | | [address] | | + + + + + [...] [facility] | [address] | [place] [address] | | | SERVICES, CORE | PARK [...] [facility] | [address] | [place] [address] | | | SERVICES, CORE | PARK [...] [facility] | [address] | [place] [address] | | | HOMERO LAN | LONG [...]
--- OUTSIDE RECORDS SUMMARY | ~2019-03-08 | XMS | Encounter Summary ---
Demographics + + + | Address | [address] | | | [place] [address] | + + + | Home Phone [...] | | | | | [place] [address] | | + + + + + | Thania Mallory | ECON | [address] | | | | | [place] [address] | | + + + + + | Deidra Weldon | ECON | [address] | | | | | [place] | | | | | [address] | | + + + + + Care Team Providers + +------+ + | Care Drop Hammer Set Up Operator Name | Role | Phone | + +------+ + | Jonathan Alonso MD | PCP | | + +------+ + Encounter Details +--------+ + + + + | Date | Type | Department | Care Team | Description | +--------+ + + + + | 01/20/ | Hospital | Radiology at [facility] | | | | 2014 | Encounter | [address] | | | | | | Mailcode: L340 | | | | | | Alexander | | | | | | [place], [place] | | | | | | [address] | | | | | | [phone] | | | +--------+ + + + [...] Correarobina | | | | | | [place], [place] | | | | | | [address] | | | | | | [phone] | | | | | | | [...] | | + +---------+ + + | [facility] DEPARTMENT OF | | | | [...]
--- OUTSIDE RECORDS SUMMARY | ~2019-03-08 | XMS | Encounter Summary ---
Demographics + + + | Address | [address] [facility] [place] [address] | | | [place] [address] | + + + | Home Phone [...] | | | | | [place] [address] | | + + + + + | Thania Mallory | ECON | [address] | | | | | [place] [address] | | + + + + + | Deidra Weldon | ECON | [address] | | | | | [place] | | | | | [address] | | + + + + + Care Team Providers + +------+ + | Care Pastrycook Name | Role | Phone | + [...] [address] | [facility] | screens) | | | | [address] [place], | [place], [place] | | | | | [place] [address] | [address] | | | | | [phone] | | | +--------+ + + + [...] [place] | | | | | | [address] | | | | | | [phone] | | | | | | | | +--------+ + + + + documented as of this encounter Visit Diagnoses Not on filedocumented in this encounter"
--- OUTSIDE RECORDS SUMMARY | ~2019-03-08 | XMS | Encounter Summary ---
Demographics + + + | Address | [address] | | | [place] [address] | + + + | Home Phone [...] | Author | [facility] | | | and Josephana | + + + | Organization | [facility] [...] Team Providers + +------+ + | Care Supervisory Civil Engineer Name | Role | Phone | [...] | | [address] | [place] | (Primary Dx); | | | | [place], [place] | [place], [place] | Anemia in ESRD | | | | [address] | [address] | (end-stage renal | | | | [phone] | | disease) ([facility]) | +--------+ + + + + Social [...] into the vein Three times a w teller. iron sucrose (VENOFER) 20 mg/mL injection Inject [...] the Nephrology Team in 2 weeks. CC: [place] Fina Joy MD, [facility] Trans[facility], [facility] signed by Jorje Camp DO at [...] [address] | | | | | | [place] [address] | | | | | | [phone] | | | | | | | [...]
--- OUTSIDE RECORDS SUMMARY | ~2019-03-08 | XMS | Encounter Summary ---
Demographics + + + | Address | [address] | | | [place] [address] | + + + | Home Phone [...] | | | | | [place] [address] | | + + + + + | Thania Mallory | ECON | [address] | | | | | [place] [address] | | + + + + + | Deidra Weldon | ECON | [address] | | | | | [place] | | | | | [address] | | + + + + + Care Team Providers + +------+ + | Care Social Worker Palliative Care Name | Role | Phone | [...] Requested | | | | Alexander | [facility] | | | | | [facility] | [place], [place] | | | | | [address] [place] [address] Dr | [address] | | | | | Mailcode: DCH7 | | | | | | Alexander | | | | | | [place], [place] | | | | | | [address] | | | | | | [phone] | | | +--------+ + + + [...] Denise | | | | | | [place] | | | | | | [address] | | | | | | [phone] | | | | | | | | +--------+ + + + + documented as of this encounter Visit Diagnoses Not on filedocumented in this encounter"
--- OUTSIDE RECORDS SUMMARY | ~2019-03-08 | XMS | Encounter Summary ---
Demographics + + + | Address | [address] | | | [place] [address] | + + + | Home Phone [...] | | | | | [place] [address] | | + + + + + | Thania Mallory | ECON | [address] | | | | | [place] [address] | | + + + + + | Deidra Weldon | ECON | [address] | | | | | [place] | | | | | [address] | | + + + + + Care Team Providers + +------+ + | Care Dairy Husbandry Teacher Name | Role | Phone | [...] Shun | | | | | [address] | [facility] | | | | | [place], [place] | [place] [address] | | | | | [address] | [phone] | | | | | | | [...] the original. 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 The patient s most recent medication information was obtained from patient and her family Pharmacy Preferences: [id number] [place] [address] Updated Outpatient Medications: Current Medication List Name [...] questions regarding this information contact pharmacy, pager #[phone] Thank you, Juan David Batres Pager [phone] signed by Juan David Batres [facility] at [...] | | | | | | [place] | | | | | | [address] | | | | | | [phone] | | | | | | | | +--------+ + + + + documented as of this encounter Visit Diagnoses Not on filedocumented in this encounter"
--- OUTSIDE RECORDS SUMMARY | ~2019-03-08 | XMS | Encounter Summary ---
Demographics + + + | Address | [address] | | | [place] [address] | + + + | Home Phone [...] | | | | | [place] [address] | | + + + + + | Thania Mallory | ECON | [address] | | | | | [place] [address] | | + + + + + | Deidra Weldon | ECON | [address] | | | | | [place] | | | | | [address] | | + + + + + Care Team Providers + +------+ + | Care Admin Asst Name | Role | Phone | [...] | Nephrology at | MD Emanuel [address] [facility] | | | | | Alexander | [place] | | | | | [facility] | [place], [place] | | | | | [address] [facility] | [address] | | | | | Mailcode: DCH7 | [phone] | | | | | Alexander | | | | | | [place], [place] | | | | | | [address] | | | | | | [phone] | | | +--------+ + + + [...] Denise | | | | | | [place] | | | | | | [address] | | | | | | [phone] | | | | | | | | +--------+ + + + + documented as of this encounter Visit Diagnoses Not on filedocumented in this encounter"
--- OUTSIDE RECORDS SUMMARY | ~2019-03-08 | XMS | Encounter Summary ---
Demographics + + + | Address | [address] | | | [place] [address] | + + + | Home Phone [...] | | | | | [place] [address] | | + + + + + | Thania Mallory | ECON | [address] | | | | | [place] [address] | | + + + + + | Deidra Weldon | ECON | [address] | | | | | [place] | | | | | [address] | | + + + + + Care Team Providers + +------+ + | Care Manager Business Continuity Name | Role | Phone | + [...] Family sheet & | | | | [address] | [address] | crossmatch report) | | | | Loop Mailcode: | [place], [place] | | | | | [address] [facility] | [address] | | | | | [address] | [phone] | | | | | [place], [place] | | | | | | [address] | | | | | | [phone] | | | +--------+ + + + [...] [place] | | | | | | [address] | | | | | | [phone] | | | | | | | | +--------+ + + + + documented as of this encounter Visit Diagnoses Not on filedocumented in this encounter"
--- OUTSIDE RECORDS SUMMARY | ~2019-03-08 | XMS | Encounter Summary ---
Demographics + + + | Address | [address] | | | [place] [address] | + + + | Home Phone [...] | Author | [facility] | | | and Josephana | + + + | Organization | [facility] | [...] Providers + +------+ + | Care Manager Knowledge Name | Role | Phone | + [...] | | KIDNEY TRANSPLANT | [address] [place], | | | | | [address] | [place] [address] | | | | | [address] [place] [address] | [phone] | | | | | [address] | | | | | | [phone] | | | +--------+ + + + [...] card. I also called the Fina Sparrow sr. social media & mobile manager, and let her know t hat [...] | | | | | [place] [address] | | | | | | [phone] | | | | | | | | +--------+---------+ + + + documented as of this encounter Visit Diagnoses Not on filedocumented in this encounter"
--- OUTSIDE RECORDS SUMMARY | ~2019-03-08 | XMS | Encounter Summary ---
Demographics + + + | Address | [address] | | | [place] [address] | + + + | Home Phone [...] + | Author | [facility] | | | and Josephana | + + + | Organization | [facility] | [...] Providers + +------+ + | Care Guest Relations Coordinator Name | Role | Phone | [...] stage renal | [address] | [address] [place] [address] | | | | | disease) | Shun Griffin | [place]otti | | | | | ([facility]) | [address] | [address] [place] | | | | | Anemia in | [place], [place] | [place] | | | | | ESRD | [address] | [address] Phone: | | | | | (end-stage | Phone: | [phone] | | | | | renal | [phone] | Fax: | | | | | disease) | Fax: | [phone] | | | | | ([facility]) | [phone] | | | | | | Procedures [...] [place] | renal disease) ([facility]) | | | | [address] | [address] | (Primary Dx) | | | | [place], [place] | [place], [place] | | | | | [address] | [address] | | | | | [phone] | | | +--------+ + + + [...] I had a very lengthy discussion with aDra that Miss treatments culminate in missed me [...] Will recheck her in 2 weeks. : [place] Fina Joy M.D., Pediatric Nephrology, [facility] documented in th is encounter Plan [...] [address] | | | | | | [place] [address] | | | | | | [phone] | | | | | | | | +--------+---------+ + + + documented as of this encounter Visit Diagnoses + + | Diagnosis | + + | ESRD (end stage renal disease) (HCC) - Primary End stage renal disease | + + documented in this encounter"
--- OUTSIDE RECORDS SUMMARY | ~2019-03-08 | XMS | Encounter Summary ---
Demographics + + + | Address | [address] | | | [place] [address] | + + + | Home Phone [...] + | Author | [facility] | | | and Josephana | + + + | Organization | [facility] | [...] Providers + +------+ + | Care Pipe Smoking Machine Operator Name | Role | Phone [...] | | KIDNEY TRANSPLANT | [address] [place], | | | | | [address] | [place] [address] | | | | | [address] [place] [address] | [phone] | | | | | [address] | | | | | | [phone] | | | +--------+ + + + [...] [place] | | | | | | [place] [address] | | | | | | [phone] | | | | | | | | +--------+---------+ + + + documented as of this encounter Visit Diagnoses Not on filedocumented in this encounter"
--- OUTSIDE RECORDS SUMMARY | ~2019-03-08 | XMS | Encounter Summary ---
Demographics + + + | Address | [address] | | | [place] [address] | + + + | Home Phone [...] | | | | | [place] [address] | | + + + + + | Thania Mallory | ECON | [address] | | | | | [place] [address] | | + + + + + | Deidra Weldon | ECON | [address] | | | | | [place] | | | | | [address] | | + + + + + Care Team Providers + +------+ + | Care Manager Respiratory Care Name | Role | Phone | + +------+ + PCP | Unavailable | + +------+ + Encounter Details +--------+ + + + + | Date | Type | Department | Care Team | Description | +--------+ + + + + | 04/09/ | Abstract | Pediatric | Sudhakar Joy | | | 2013 | | Nephrology at | MD Emanuel [address] [facility] | | | | | Alexander | [address] | | | | | [facility] | [place], [place] | | | | | [address] [facility] | [address] | | | | | Mailcode: DCH7 | [phone] | | | | | Alexander | | | | | | [place], [place] | | | | | | [address] | | | | | | [phone] | | | +--------+ + + + [...] | | | | | | [place], [place] | | | | | | [address] | | | | | | [phone] | | | | | | | | +--------+ + + + + documented as of this encounter Visit Diagnoses Not on filedocumented in this encounter"
--- OUTSIDE RECORDS SUMMARY | ~2019-03-08 | XMS | Encounter Summary ---
Demographics + + + | Address | [address] | | | [place] [address] | + + + | Home Phone [...] | | | | | [place] [address] | | + + + + + | Deidra Weldon | ECON | [address] | | | | | [place] | | | | | [address] | | + + + + + Care Team Providers + +------+ + | Care Wireless Telegrapher Name | Role | Phone | + [...] | | | | [address] [place], | | | | | | [place] [address] | | | +--------+ + + + [...] | | | | | | [place], [place] | | | | | | [address] | | | | | | [phone] | | | | | | | [...] DANILO - | [address] | [place] [address] | | | IMMUNOGENETICS/TRANS | [address] | | | | [facility] | | | | + + + + + documented in this encounter Visit Diagnoses + + | Diagnosis | + + | End stage renal disease (HCC) End stage renal disease | + + documented in this encounter"
--- OUTSIDE RECORDS SUMMARY | ~2019-03-08 | XMS | Encounter Summary ---
Demographics + + + | Address | [address] | | | [place] [address] | + + + | Home Phone [...] | | | | | [place] [address] | | + + + + + | Thania Mallory | ECON | [address] | | | | | [place] [address] | | + + + + + | Deidra Weldon | ECON | [address] | | | | | [place] | | | | | [address] | | + + + + + Care Team Providers + +------+ + | Care Extension Service Specialist In Charge Name | Role | Phone [...] Nephrology at | MD Emanuel [address] [facility] | | | | | Alexander | [facility] | | | | | [facility] | [place], [place] | | | | | [address] [facility] | [address] | | | | | Mailcode: DCH7 | [phone] | | | | | Alexander | | | | | | [place], [place] | | | | | | [address] | | | | | | [phone] | | | +--------+ + + + [...] Denise | | | | | | [place] | | | | | | [address] | | | | | | [phone] | | | | | | | | +--------+ + + + + documented as of this encounter Visit Diagnoses Not on filedocumented in this encounter"
--- OUTSIDE RECORDS SUMMARY | ~2019-03-08 | XMS | Encounter Summary ---
Demographics + + + | Address | [address] | | | [place] [address] | + + + | Home Phone [...] | Author | [facility] | | | and Josephana | + + + | Organization | [facility] [...] Providers + +------+ + | Care Automatic Vulcanizing Lead Operator Name | Role | Phone | [...] | NEPHROLOGY [address] | [address] | | | | | [address] | [address] [place] | | | | | [place], [place] | [place] [address] | | | | | [address] | [phone] | | | | | [phone] | | | +--------+ + + + [...] | 04/18/ | Office | Pulmonology | Denyn Alexander | | | 2019 | Visit | | Deny Briggs MD [address] | | | | | | [address] [place] | | | | | | [place] [address] | | | | | | [phone] | | | | | | | | +--------+---------+ + + + documented as of this encounter Visit Diagnoses Not on filedocumented in this encounter"
--- OUTSIDE RECORDS SUMMARY | ~2019-03-08 | XMS | Encounter Summary ---
Demographics + + + | Address | [address] | | | [place] [address] | + + + | Home Phone [...] Author | [facility] | | | and Josephana | + + + | Organization | [facility] [...] Providers + +------+ + | Care Regional Ehs Manager Name | Role | Phone | [...] | | | | [place], [place] | [phone] | | | | | [address] | | | | | | [phone] | | | +--------+ + + + [...] | | | | | [place] [address] | | | | | | [phone] | | | | | | | [...]
--- OUTSIDE RECORDS SUMMARY | ~2019-03-08 | XMS | Encounter Summary ---
Demographics + + + | Address | [address] | | | [place] [address] | + + + | Home Phone [...] | Author | [facility] | | | and Josephana | + + + | Organization | [facility] | | [...] Providers + +------+ + | Care Barrel Planer Name | Role | Phone | + [...] [address] | | | | | [place], [place] | [place], [place] | | | | | [address] | [address] | | | | | [phone] | | | +--------+--------+ + + + [...] | | | | | [place] [address] | | | | | | [phone] | | | | | | | | +--------+---------+ + + + documented as of this encounter Visit Diagnoses Not on filedocumented in this encounter"
--- OUTSIDE RECORDS SUMMARY | ~2019-03-08 | XMS | Encounter Summary ---
Demographics + + + | Address | [address] | | | [place] [address] | + + + | Home Phone [...] | Author | [facility] | | | and Josephana | + + + | Organization | [facility], [...] | NEPHROLOGY [address] | [address] | | | | | [address] | [address] [place] | | | | | [place], [place] | [place] [address] | | | | | [address] | [phone] | | | | | [phone] | | | +--------+ + + + [...] form rec eived from Navin Casanova manager [employer], [facility] regarding housing, do s: 12/08/16. Sent [...] [place] | | | | | | [place] [address] | | | | | | [phone] | | | | | | | | +--------+---------+ + + + documented as of this encounter Visit Diagnoses Not on filedocumented in this encounter"
--- OUTSIDE RECORDS SUMMARY | ~2019-03-08 | XMS | Encounter Summary ---
Demographics + + + | Address | [address] | | | [place] [address] | + + + | Home Phone [...] | | | | | [place] [address] | | + + + + + | Thania Mallory | ECON | [address] | | | | | [place] [address] | | + + + + + | Deidra Weldon | ECON | [address] | | | | | [place] | | | | | [address] | | + + + + + Care Team Providers + +------+ + | Care Visiting Professor Name | Role | Phone | [...] | | | [address] | [facility] | | | | | [address] [place], | [place], [place] | | | | | [place] [address] | [address] | | | | | [phone] | | | +--------+ + + + [...] Denise | | | | | | [place] | | | | | | [address] | | | | | | [phone] | | | | | | | | +--------+ + + + + documented as of this encounter Visit Diagnoses Not on filedocumented in this encounter"
--- OUTSIDE RECORDS SUMMARY | ~2019-03-08 | XMS | Encounter Summary ---
Demographics + + + | Address | [address] | | | [place] [address] | + + + | Home Phone [...] | Author | [facility] | | | and [place]ana | + + + | Organization | [facility] | [...] Providers + +------+ + | Care Production Control Coordinator Name | Role | Phone | + +------+ + | Jonathan Alonso MD | PCP | | + +------+ + Encounter Details +--------+ + + + + | Date | Type | Department | Care Team | Description | +--------+ + + + + | 10/08/ | Orders Only | [facility] | Provider, | Systolic congestive | | 2019 | | SYSTEM GENERIC OP | MD [address] | heart failure (HCC) | | | | CONVERSION [address] | [place] | | | | | [address] [place], [place] | [place] [address] | | | | | [address] | | | | | | [phone] | | | +--------+ + + + [...] [place] | | | | | | [place] [address] | | | | | | [phone] | | | | | | | [...]
--- OUTSIDE RECORDS SUMMARY | ~2019-03-08 | XMS | Encounter Summary ---
Demographics + + + | Address | [address] | | | [place] [address] | + + + | Home Phone [...] | | | | | [place] [address] | | + + + + + | Thania Mallory | ECON | [address] | | | | | [place] [address] | | + + + + + | Deidra Weldon | ECON | [address] | | | | | [place] | | | | | [address] | | + + + + + Care Team Providers + +------+ + | Care Supervisor Packing Room Name | Role | Phone | [...] | | | | | [address] [place], | [place], [place] | | | | | [place] [address] | [address] | | | | | [phone] | | | +--------+ + + + [...] Denise | | | | | | [place] | | | | | | [address] | | | | | | [phone] | | | | | | | | +--------+ + + + + documented as of this encounter Visit Diagnoses Not on filedocumented in this encounter"
--- OUTSIDE RECORDS SUMMARY | ~2019-03-08 | XMS | Encounter Summary ---
Demographics + + + | Address | [address] | | | [place] [address] | + + + | Home Phone [...] | Author | [facility] | | | and Josephana | + + + | Organization | [facility] | | [...] Providers + +------+ + | Care Claims Counsel Name | Role | Phone | + +------+ + PCP | Unavailable | + +------+ + Encounter Details +--------+ + + + + | Date | Type | Department | Care Team | Description | +--------+ + + + + | 03/19/ | Hospital | [facility] | Bolivar Mcqueen MD | | | 2009 | Encounter | H[facility]PITAL EMERGENCY | | | | | | CENTER [address] | [address] [place], [place] | | | | | | [address] | | | | | | [phone] | | | +--------+ + + + [...] | | | | | [place] [address] | | | | | | [phone] | | | | | | | | +--------+---------+ + + + documented as of this encounter Visit Diagnoses Not on filedocumented in this encounter"
--- OUTSIDE RECORDS SUMMARY | ~2019-03-08 | XMS | Encounter Summary ---
Demographics + + + | Address | [address] | | | [place] [address] | + + + | Home Phone [...] | | | | | [place] [address] | | + + + + + | Thania Mallory | ECON | [address] | | | | | [place] [address] | | + + + + + | Deidra Weldon | ECON | [address] | | | | | [place] | | | | | [address] | | + + + + + Care Team Providers + +------+ + | Care Head Librarian Name | Role | Phone | [...] | | | | [address] [place] | [facility] | | | | | [address] [place], | [place], [place] | | | | | [place] [address] | [address] | | | | | [phone] | | | +--------+ + + + [...] | | | | | | [place] | | | | | | [address] | | | | | | [phone] | | | | | | | | +--------+ + + + + documented as of this encounter Visit Diagnoses Not on filedocumented in this encounter"
--- OUTSIDE RECORDS SUMMARY | ~2019-03-08 | XMS | Encounter Summary ---
Demographics + + + | Address | [address] | | | [place] [address] | + + + | Home Phone [...] Author | [facility] | | | and Josephana | + + + | Organization | [facility] | | | and [...] Providers + +------+ + | Care Assistant Site Manager Name | Role | Phone [...] | | [address] | [place] | | | | | [place], [place] | [place], [place] | | | | | [address] | [address] | | | | | [phone] | | | +--------+--------+ + + + [...] | | | | | [place] [address] | | | | | | [phone] | | | | | | | | +--------+---------+ + + + documented as of this encounter Visit Diagnoses Not on filedocumented in this encounter"
--- OUTSIDE RECORDS SUMMARY | ~2019-03-08 | XMS | Encounter Summary ---
Demographics + + + | Address | [address] | | | [place] [address] | + + + | Home Phone [...] | | | | | [place] [address] | | + + + + + | Thania Mallory | ECON | [address] | | | | | [place] [address] | | + + + + + | Deidra Weldon | ECON | [address] | | | | | [place] | | | | | [address] | | + + + + + Care Team Providers + +------+ + | Care Crate Tier Name | Role | Phone | [...] [facility]) | [address] | [address] [place], | | | | | Allergic | [place], [place] | [place] | | | | | purpura | [address] | [address] | | | | | ([facility]) | Phone: | Phone: | | | | | | [phone] | [phone] | | | | | | Fax: | Fax: | | | | | | [phone] | [phone] | +--------+--------+ + + + + Encounter Details +--------+ + + + + | Date | Type | Department | Care Team | Description | +--------+ + + + + | 12/20/ | Hospital | Radiology at [facility] | | | | 2012 | Encounter | [address] | | | | | | Mailcode: L340 | | | | | | [place] | | | | | | [place], [place] | | | | | | [address] | | | | | | [phone] | | | +--------+ + + + [...] | | | | | | [place], [place] | | | | | | [address] | | | | | | [phone] | | | | | | | [...]
--- OUTSIDE RECORDS SUMMARY | ~2019-03-08 | XMS | Clinical Summary ---
Demographics + + + | Address | [address] | | | [place] [address] | + + + | Home Phone [...] + + | Author | [facility] (Historical as of | | | 10-20-18) | + + + | Organization | [facility] (Historical as of | | | 10-20-18) [...] Providers + +------+ + | Care Personal Consultant Name | Role | Phone | [...] | Left: | SYNOVIS | | | [id number] | | 0.8x8cm - [id number]: | | Arm | | | | [...] | | | COVIDIEN | | | [id number] | | 23cmExplanted: Qty: 1 on | | | | | | 3404 / | | 04/08/2014 | | | | | | | | | | | | | | /[id number] | | | | | | | [...] +------+-------+ + | MEDICARE | MEDICA | [id number] | | | [address] | | | RE | | | | [place], [place] [address] | | | IP-OP | | | | | + +--------+ +------+-------+ + | MEDICAID | EASTER | [id number] | | | [address] | | | N | | | | [place] | | | [place] | | | | [address] | | | BLUNGER | | | | | + +--------+ [...] | | 1994 | [phone] | [address] | | | [place] | | | [phone] | [phone] | + +--------+ +--------+ + +
--- OUTSIDE RECORDS SUMMARY | ~2019-03-08 | XMS | Clinical Summary ---
Demographics + + + | Address | [address] | | | [place] [address] | + + + | Home Phone [...] + | Author | [facility] (Historical as of | | | 10-20-18) | + + + | Organization | [facility] (Historical as of | | | 10-20-18) [...] Providers + +------+ + | Care Dimension Mill Worker Name | Role | Phone | [...] | Left: | SYNOVIS | | | [id number] | | 0.8x8cm - [id number]: | | Arm | | | | [...] | | | COVIDIEN | | | [id number] | | 23cmExplanted: Qty: 1 on | | | | | | 3404 / | | 04/08/2014 | | | | | | | | | | | | | | /[id number] | | | | | | | [...] +------+-------+ + | MEDICARE | MEDICA | [id number] | | | [address] | | | RE | | | | [place] [address] | | | IP-OP | | | | | + +--------+ +------+-------+ + | MEDICAID | EASTER | [id number] | | | [address] | | | N | | | | [place] | | | [place] | | | | [address] | | | RENTAL SALESPERSON | | | | | + +--------+ [...] | [address] | | | [phone] | [phone] | + +--------+ +--------+ + +
--- OUTSIDE RECORDS SUMMARY | ~2019-03-08 | XMS | Encounter Summary ---
Demographics + + + | Address | [address] | | | [place] [address] | + + + | Home Phone [...] | | | | | [place] [address] | | + + + + + | Thania Mallory | ECON | [address] | | | | | [place] [address] | | + + + + + | Deidra Weldon | ECON | [address] | | | | | [place] | | | | | [address] | | + + + + + Care Team Providers + +------+ + | Care Leather Cleaner Name | Role | Phone | [...] [address] | | | | | | [address] | [place] | | | | | | [address] | [place], [place] | | | | | | [place] | [address] | | | | | | [place] | Phone: | | | | | | [address] | [phone] | | | | | | Phone: | | | | | | | [phone] | | | | | | | Fax: | | | | | | | [phone] | | +--------+--------+ + + + + Encounter Details +--------+---------+ + + + | Date | Type | Department | Care Team | Description | +--------+---------+ + + + | 11/16/ | Office | Specialty Clinics | Sudhakar Joy | 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 Have your friend call Brittney about [phone] Sudhakar Joy MD documented in this encounter [...] [address] Mail code [facility] [place], [place] [id number] documented in this encounter Plan of Treatment +--------+ + + + + | Date | Type | Specialty | Care Team | Description | +--------+ + + + + | 05/04/ | Hospital | Adult Acute Care | El Starr MD | | | 2022 | Encounter | | [address] | | | | | | [place], [place] | | | | | | [address] | | | | | | [phone] | | | | | | | [...]
--- OUTSIDE RECORDS SUMMARY | ~2019-03-08 | XMS | Encounter Summary ---
Demographics + + + | Address | [address] | | | [place] [address] | + + + | Home Phone [...] Author | [facility] | | | and Josephana | + + + | Organization | [facility] | | [...] Providers + +------+ + | Care Consumer Safety Officer Name | Role | Phone [...] to | | | obtain one in [place]. I explained that we would have to [...] | | KIDNEY TRANSPLANT | [address] [place], | (Dara whelan so I | | | | [address] [place] | [place] [address] | called her back to | | | | [address] [place], [place] | [phone] | complete intake | | | | [address] | | questionnaire. She | | | | [phone] | | currently ingests | | | [...] | | | | | one in [place]. I | | | | | | [...] she would have to obtain one in [place]. I explained that we would have to [...] | | | | | | [place] [address] | | | | | | [phone] | | | | | | | | +--------+---------+ + + + documented as of this encounter Visit Diagnoses Not on filedocumented in this encounter"
--- OUTSIDE RECORDS SUMMARY | ~2019-03-08 | XMS | Encounter Summary ---
Demographics + + + | Address | [address] | | | [place] [address] | + + + | Home Phone [...] | Author | [facility] | | | and Josephana | + + + | Organization | 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
--- OUTSIDE RECORDS SUMMARY | ~2019-03-08 | XMS | Encounter Summary ---
Demographics + + + | Address | [address] | | | [place] [address] | + + + | Home Phone [...] | | | | | [place] [address] | | + + + + + | Thania Mallory | ECON | [address] | | | | | [place] [address] | | + + + + + | Deidra Weldon | ECON | [address] | | | | | [place] | | | | | [address] | | + + + + + Care Team Providers + +------+ + | Care Telecommunications Switch Technician Name | Role | Phone | [...] [address] | [facility] | | | | | [address] [place], | [place], [place] | | | | | [place] [address] | [address] | | | | | [phone] | | | +--------+ + + + [...] Denise | | | | | | [place] | | | | | | [address] | | | | | | [phone] | | | | | | | | +--------+ + + + + documented as of this encounter Visit Diagnoses Not on filedocumented in this encounter"
--- OUTSIDE RECORDS SUMMARY | ~2019-03-08 | XMS | Encounter Summary ---
Demographics + + + | Address | [address] | | | [place] [address] | + + + | Home Phone [...] | | | | | [place] [address] | | + + + + + | Thania Mallory | ECON | [address] | | | | | [place] [address] | | + + + + + | Deidra Weldon | ECON | [address] | | | | | [place] | | | | | [address] | | + + + + + Care Team Providers + +------+ + | Care E Business Specialist Name | Role | Phone | [...] potential | | | | [address] [place], | [place], [place] | donor/checking in | | | | [place] [address] | [address] | with SW) | | | | [phone] | | | +--------+ + + + [...] [facility] | | | | | | [address] | | | | | | [phone] | | | | | | | | +--------+ + + + + documented as of this encounter Visit Diagnoses Not on filedocumented in this encounter"
--- OUTSIDE RECORDS SUMMARY | ~2019-03-08 | XMS | Encounter Summary ---
Demographics + + + | Address | [address] | | | [place] [address] | + + + | Home Phone [...] | | | | | [place] [address] | | + + + + + | Thania Mallory | ECON | [address] | | | | | [place] [address] | | + + + + + | Deidra Weldon | ECON | [address] | | | | | [place] | | | | | [address] | | + + + + + Care Team Providers + +------+ + | Care Rn Medical Surgical Name | Role | Phone | + [...] | Nephrology at | MD Emanuel [address] [facility] | | | | | [place] | [place] | | | | | [facility] | [place], [place] | | | | | [address] [facility] | [address] | | | | | Mailcode: DCH7 | [phone] | | | | | [place] | | | | | | [place], [place] | | | | | | [address] | | | | | | [phone] | | | +--------+ + + + [...] | | | | | | [place] | | | | | | [address] | | | | | | [phone] | | | | | | | | +--------+ + + + + documented as of this encounter Visit Diagnoses Not on filedocumented in this encounter"
--- OUTSIDE RECORDS SUMMARY | ~2019-03-08 | XMS | Encounter Summary ---
Demographics + + + | Address | [address] | | | [place] [address] | + + + | Home Phone [...] | | | | | [place] [address] | | + + + + + | Thania Mallory | ECON | [address] | | | | | [place] [address] | | + + + + + | Deidra Weldon | ECON | [address] | | | | | [place] | | | | | [address] | | + + + + + Care Team Providers + +------+ + | Care Exhibitions And Collections Manager Name | Role | Phone | [...] Hospital | | | | | [facility], | [place], [place] | | | | | [place] [address] | [address] | | | | | [phone] | | | +--------+ + + + [...] [facility] | | | | | | [address] | | | | | | [phone] | | | | | | | | +--------+ + + + + documented as of this encounter Visit Diagnoses Not on filedocumented in this encounter"
--- OUTSIDE RECORDS SUMMARY | ~2019-03-08 | XMS | Encounter Summary ---
Demographics + + + | Address | [address] | | | [place] [address] | + + + | Home Phone [...] + | Author | [facility] | | | and Josephana | + + + | Organization | [facility] | | | [...] Providers + +------+ + | Care Head Bookkeeper Name | Role | Phone | + +------+ + PCP | Unavailable | + +------+ + Encounter Details +--------+ + + + + | Date | Type | Department | Care Team | Description | +--------+ + + + + | 07/09/ | Hospital | [facility] | Colten Hutchins MD | AV fistula | | 2017 | Encounter | [facility] | [address] | thrombosis, initial | | | | CLINICAL DECISION | [place], [place] | encounter ([facility]) | | | | [address] | [address] | | | | | [place], [place] | | | | | | [address] | | | | | | [phone] | | | +--------+ + + + [...] 07/09/161821 Date of Service: 07/09/161820 Status: Signed Olive Pitter: Catherine Lenz, RN (Registered Nurse) Patient stable [...] [address] | | | | | | [place] [address] | | | | | | [phone] | | | | | | | [...] At | + + + | Successful baptism of flow within the left brachiocephalic | [...] | The microaccesses were exchanged to 6 Austrian sheaths. Patient was | | | heparinized. [...] | | stent. Intraprocedural fistulogram was demonstrated baptism of | | | flow but severe [...] access. The microaccesses were exchanged to 6 Austrian sheaths. Patient was | | heparinized. Via [...] stent. 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 IMPRESSION: Successful baptism of flow within the | | left [...] At | + + + | Successful baptism of flow within the left brachiocephalic | [...] | The microaccesses were exchanged to 6 Austrian sheaths. Patient was | | | heparinized. [...] | | stent. Intraprocedural fistulogram was demonstrated baptism of | | | flow but severe [...] access. The microaccesses were exchanged to 6 Austrian sheaths. Patient was | | heparinized. Via [...] stent. 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 IMPRESSION: Successful baptism of flow within the | | left [...] | | | Patient | performed at [facility];[address] | | LAB | | | | [address] [facility];[place], [place] | | | | | | [address] | | | | + + + [...] | | | | | | [address];[place], [place] | | | | | | [address] | | | | + + + [...] | | | Estimate | performed at [facility] | | LAB | | | | [address];[place] | | | | | | [address] | | | | + + + [...] | | | | | | at [facility];[address] | | | | | | [address];[place] [address] | | | | + + + [...]
--- OUTSIDE RECORDS SUMMARY | ~2019-03-08 | XMS | Encounter Summary ---
Demographics + + + | Address | [address] | | | [place] [address] | + + + | Home Phone [...] + | Author | [facility] | | | and Josephana | + + + | Organization | [facility] | | [...] Providers + +------+ + | Care Public Safety Dispatcher Name | Role | Phone | + +------+ + | Jonathan Alonso MD | PCP | | + +------+ + Encounter Details +--------+ + + + + | Date | Type | Department | Care Team | Description | +--------+ + + + + | 10/17/ | Hospital | [facility] | Nikita, | ESRD (end stage | | 2019 - | Encounter | [facility]UTE | MD Naresh [address] | renal disease) | | | | CARE FLOOR [address] | ([facility]); Dilated | | 10/22/ | | [address] | [place] [address] | cardiomyopathy | | 2019 | | [place], [place] | [phone] | ([facility]); | | | | [address] | | Non-cardiogenic | | | | [phone] | Gerber Pearson MD | pulmonary edema; | | | | | [address] | Anemia in ESRD | | | | | [place] [address] | (end-stage renal | | | | | [phone] | disease) ([facility]); | | | | [...] failure | | | | | | ([facility]); At high risk [...] original. [facility]: Hospitalist Physician Discharge Summary Patient ID: Dara Weldon 1995 23 y.o. Admit date: 10/17/2018 Discharge date and time: No discharge date for patient encounter. Admitting Physician: Naresh Shetlon MD Discharge Physician: Gerber Pearson MD Consultants: [...] is to follow up with her regular manager operating, Dr. Hurtado. DISCHARGE DIAGNOSES: 1. End-stage renal [...] REPAIR/REVISION; Surgeon: Rik Simon MD; Location: [facility]; Service: Vascular; Laterality: Left; biopsy of kidney age 10 DIALYSIS FISTULA CREATION 04/08/2014 Procedure: DIALYSIS CATHETER - INSERTION; Surgeon: Rik Simon MD; Location: [facility] [...] - SUPERFICIALIZATION; Surgeon: Emanuel Simon MD; Location: [facility]; Service: Vascular; Laterality: Left; OTHER SURGICAL HISTORY Left 04/08/2014 AV FISTULA PLACEMENT - Procedure: AV FISTULA; Surgeon: Rik Simon MD; Location: [facility]; Service: Vascular; Laterality: Left; cephalic [...] have: Continued coughing Fever Date Last Reviewed: 02/04/201619999776-3542 [employer]. [address] [place] [address], [place] [address]. All righ ts reserved. This information is [...] by your healthcare provider Date Last Reviewed: 12/05/201519994853-0335 [employer]. [address] [place] [address], [place] [address]. All righ ts reserved. This information is [...] + + +---------+ + + | B Xtshfnc-R-Oazdp | Take 1 tablet by | | [...] I have discussed the case with the METAL MOLDER. I agree with his findings & documentation. [...] Status otherwise unchanged. Chart audit comple te. nAtonio Carrasco MD - 10/21/2018 3:00 PM PDT [facility]: NEPHROLOGY Progress Note Dara Weldon 23 y.o. [id number] female Jonathan Alonso MD Hospital Day: [...] GRAFT REPAIR/REVISION; Surgeon: Rik Simon MD; Location: [facility]; Service: Vascular; Laterality: Left; biopsy of kidney age 10 DIALYSIS FISTULA CREATION 04/08/2014 Procedure: DIALYSIS CATHETER - INSERTION; Surgeon: Rik Simon MD; Location: [facility] ; Service: Vascular; Laterality: N/A; tunneled catheter.br hemodialysis catheter KIDNEY BIOPSY Left 2003 OTHER SURGICAL HISTORY LAPAROSCOPIC PERITONEAL DIALYSIS CATHETER INSERTION - x2 OTHER SURGICAL HISTORY Right 07/2013 LAPAROSCOPIC PERITONEAL DIALYSIS CATHETER INSERTION - current dialysis access MWF dialysis OTHER SURGICAL HISTORY Left 06/24/2014 SUPERFICIALIZATION OF AV FISTULA - Procedure: AV FISTULA - SUPERFICIALIZATION; Surgeon: Emanuel Simon MD; Location: [facility]; Service: Vascular; Laterality: Left; OTHER SURGICAL HISTORY Left 04/08/2014 AV FISTULA PLACEMENT - Procedure: AV FISTULA; Surgeon: Rik Simon MD; Location: [facility]; Service: Vascular; Laterality: Left; cephalic OTHER SURGICAL HISTORY Left 03/07/2014 DECLOT GRAFT - Procedure: GRAFT - DECLOT; Surgeon: Rik Simon MD; Location: [facility] ; Service: Vascular; Laterality: [...] Narrative She lives in [facility]. She does not work. She has [...] MR, severe TR.severe pulmonary hyperten arturo Chest n-ckc-wscoxzridrbb with pulmonary edema and large right pleural [...] earlier and charting completed later Dictation software, [employer], used which may contain error for similar sounding words even af ter review. Personal communication requested for any clarification. Portions of my notes may have been carried over for continuity of care.Electronically ananth d by Antonio Benjamin MD at 10/21/2018 3:11 PM Gerber Fernandez MD - 10/21/2018 7:18 AM PD T [facility] Adult Hospitalist Progress Note Hospital Day: [...] BUN 90 on admission -History of a [place] Schnlein purpura -Last hemodialysis approximately 2 weeks [...] PearsonCamille D - 10/20/2018 9:09 AM PDT [facility] Adult Hospitalist Progress Note Hospital Day: [...] BUN 90 on admission -History of a [place] Schnlein purpura -Last hemodialysis approximately 2 weeks [...] [address] | | | | | | [place] [address] | | | | | | [phone] | | | | | | | [...] [place], | | | | | | [place] [address] | | | | + + + + + + + + | Specimen | + + | Blood | + + + + + + + | Performing | Address | City/State/Zipcode | Phone Number | | Organization | | | | + + + + + | [facility] | [address] | [place] [address] | [phone] | + + + + + Basic [...] Center, | | | | | | [place] [address] | | | | + + + + + + + + | Specimen | + + | Blood - Right upper | | arm structure (body | | structure) | + + + + + + + | Performing | Address | City/State/Zipcode | Phone Number | | Organization | | | | + + + + + | [facility] | [address] | [place] [address] | [phone] | + + + + + Basic [...] Center, | | | | | | [place] [address] | | | | + + + + + + + + | Specimen | + + | Blood - Right upper | | arm structure (body | | structure) | + + + + + + + | Performing | Address | City/State/Zipcode | Phone Number | | Organization | | | | + + + + + | [facility] | [address] | [place] [address] | [phone] | + + + + + Basic [...] [facility] | | | | | | [facility];[place], [place] | | | | | | [address] | | | | + + + + + + + + | Specimen | + + | Blood - Right upper | | arm structure (body | | structure) | + + + + + + + | Performing | Address | City/State/Zipcode | Phone Number | | Organization | | | | + + + + + | [facility] | [address] | [place] [address] | [phone] | + + + + + documented in this encounter Visit Diagnoses + + | Diagnosis | + + | Non-cardiogenic pulmonary edema - Primary Pulmonary congestion and hypostasis | + + | ESRD (end stage renal disease) ([facility]) End stage renal disease | + + | Dilated cardiomyopathy ([facility]) Other primary cardiomyopathies | + + | Anemia in ESRD (end-stage renal disease) ([facility]) Anemia in chronic kidney disease [...] | | | for platelets less than [address], | | + +---+ | | | [...]
--- OUTSIDE RECORDS SUMMARY | ~2019-03-08 | XMS | Encounter Summary ---
Demographics + + + | Address | [address] | | | [place] [address] | + + + | Home Phone [...] | | | | | [place] [address] | | + + + + + | Thania Mallory | ECON | [address] | | | | | [place] [address] | | + + + + + | Deidra Weldon | ECON | [address] | | | | | [place] | | | | | [address] | | + + + + + Care Team Providers + +------+ + | Care Noc Analyst Name | Role | Phone | [...] | | | | [address] | [facility] | | | | | [place] [place], | [place], [place] | | | | | [place] [address] | [address] | | | | | [phone] | | | +--------+ + + + [...] [facility] | | | | | | [address] | | | | | | [phone] | | | | | | | | +--------+ + + + + documented as of this encounter Visit Diagnoses Not on filedocumented in this encounter"
--- OUTSIDE RECORDS SUMMARY | ~2019-03-08 | XMS | Encounter Summary ---
Demographics + + + | Address | [address] | | | [place] [address] | + + + | Home Phone [...] | | | | | [place] [address] | | + + + + + | Thania Mallory | ECON | [address] | | | | | [place] [address] | | + + + + + | Deidra Weldon | ECON | [address] | | | | | [place] | | | | | [address] | | + + + + + Care Team Providers + +------+ + | Care Automotive Painter Name | Role | Phone | [...] Transplant Services | RN [address] [facility] | Update | | | | [address] [facility] | [facility] | | | | | [facility], | [place], [place] | | | | | [place] [address] | [address] | | | | | [phone] | | | +--------+ + + + [...] [facility] | | | | | | [address] | | | | | | [phone] | | | | | | | | +--------+ + + + + documented as of this encounter Visit Diagnoses Not on filedocumented in this encounter"
--- OUTSIDE RECORDS SUMMARY | ~2019-03-08 | XMS | Encounter Summary ---
Demographics + + + | Address | [address] | | | [place] [address] | + + + | Home Phone [...] | | | | | [place] [address] | | + + + + + | Thania Mallory | ECON | [address] | | | | | [place] [address] | | + + + + + | Deidra Weldon | ECON | [address] | | | | | [place] | | | | | [address] | | + + + + + Care Team Providers + +------+ + | Care Electric Tripper Machine Operator Name | Role | Phone [...] pt's | | | | [address] [place], | [place], [place] | support plan & | | | | [place] [address] | [address] | social changes) | | | | [phone] | | | +--------+ + + + [...] Denise | | | | | | [place], [place] | | | | | | [address] | | | | | | [phone] | | | | | | | | +--------+ + + + + documented as of this encounter Visit Diagnoses Not on filedocumented in this encounter"
--- OUTSIDE RECORDS SUMMARY | ~2019-03-08 | XMS | Encounter Summary ---
Demographics + + + | Address | [address] | | | [place] [address] | + + + | Home Phone [...] | | | | | [place] [address] | | + + + + + | Thania Mallory | ECON | [address] | | | | | [place] [address] | | + + + + + | Deidra Weldon | ECON | [address] | | | | | [place] | | | | | [address] | | + + + + + Care Team Providers + +------+ + | Care Internet Architect Name | Role | Phone | [...] | | | | | [place], | | | | | | [place] [address] | | | +--------+ + + + [...] Denise | | | | | | [place], [place] | | | | | | [address] | | | | | | [phone] | | | | | | | [...] DANILO - | [address], | [place] [address] | | | IMMUNOGENETICS/TRANS | [address] | | | | [facility] | | | | + + + + + documented in this encounter Visit Diagnoses Not on filedocumented in this encounter"
--- OUTSIDE RECORDS SUMMARY | ~2019-03-08 | XMS | Encounter Summary ---
Demographics + + + | Address | [address] | | | [place] [address] | + + + | Home Phone [...] Author | [facility] Mcfarlane | | | and Joesphana | + + + | Organization | [facility] [...] Team Providers + +------+ + | Care Fabricator [employer] Name | Role | Phone | + [...] + + | 12/10/ | Hospital | [facility] | Rayray Powers MD | Sepsis, due to | | 2019 - | Encounter | [facility] | [address] | unspecified | | | | CARE FLO[address] | [place], [place] | organism, | | 12/14/ | | [address] | [address] | unspecified whether | | 2019 | | [place], [place] | [phone] | acute organ | | | | [address] | | dysfunction present | | | | [phone] | Lee Harris MD | ([facility]) (Primary Dx); | | | | | [address] | Pneumonia of right | | | | | [place] [address] | lower lobe due to | | | | | [phone] | infectious organism | | | | | | ([facility]); Hypoxia; | | | | | Jw Neri, DO [address] | Hypervolemia, | | | | | [address] | unspecified | | | | | [place] [address] | hypervolemia type; | | | | | [phone] | ESRD on dialysis | | | | | | ([facility]); Hyperkalemia; | | | | | | Acute on chronic | | | | | | respiratory failure | | | | | | with hypoxia and | | | | | | hypercapnia ([facility]); | | | | | | Acute respiratory | | | | | | failure with hypoxia | | | | | | ([facility]); Anemia in | | | | | | ESRD (end-stage | | | | | | renal disease) | | | | | | ([facility] [...] | | | | | | failure ([facility]); | | | | | | Chronic right-sided | | | | | | heart failure ([facility]); | | | | [...] | | | | | | dialysis ([facility]); | | | | [...] note might be different from pierre coleman. [facility]: Hospitalist Physician Discharge Summary Patient [...] to Gram-positive bacteria 12/12/2018 Clotted dialysis access ([facility]) 2014 Congestive heart failure ([facility]) ESRD (end stage renal disease) ([facility]) HSP (Henoch-Schonlein purpura) nephritis ([facility]) 1987 Hypertension Pericardial effusion without cardiac tamponade 11/07/2018 Past Surgical History: Procedure Laterality Date ABDOMEN SURGERY AV FISTULA REPAIR 02/24/2014 LEFT Radical Cephalic Fistula Creation; Laterality: Left; Surgeon: Blake Chavarria MD ; Location: [facility] MAIN OR AV FISTULA REPAIR Left 03/07/2014 Procedure: AV FISTULA - GRAFT REPAIR/REVISION; Surgeon: Rik Simon MD; Location: [facility] OR; Service: Vascular; Laterality: Left; biopsy of kidney age 10 DIALYSIS FISTULA CREATION 04/08/2014 Procedure: DIALYSIS CATHETER - INSERTION; Surgeon: Rik Simon MD; Location: [facility] OR ; Service: Vascular; Laterality: N/A; tunneled catheter.br hemodialysis catheter KIDNEY BIOPSY Left 2003 OTHER SURGICAL HISTORY LAPAROSCOPIC PERITONEAL DIALYSIS CATHETER INSERTION - x2 OTHER SURGICAL HISTORY Right 07/2013 LAPAROSCOPIC PERITONEAL DIALYSIS CATHETER INSERTION - current dialysis access MWF dialysis OTHER SURGICAL HISTORY Left 06/24/2014 SUPERFICIALIZATION OF AV FISTULA - Procedure: AV FISTULA - SUPERFICIALIZATION; Surgeon: Emanuel Simon MD; Location: [facility] MAIN OR; Service: Vascular; Laterality: Left; OTHER [...] hours. No results for input(s): PHART, PO2ART, OWQ6DCY, J4GCPAEZ, BEART in the last 168 hours. No results for input(s): APTT, INR, PTT in the last 168 hours. No results for input(s): TSH in the last 168 hours. Invalid input(s): T3FREE, FREET4 No results for input(s): TROPONINT in the last 168 hours. Invalid input(s): CKTOTAL, TROPONINI, CKMBINDEX Disposition: home No discharge procedures on file. Follow up: Jonathan Alonso MD [address] [facility] [address] Schedule an appointment as soon as possible for a visit hospital follow up Jorje Stewart, [address] [facility] [address] [facility] [address] Schedule an appointment as soon as possible [...] be sent through Care Everywhere.Leti Whitt (Adult) (Luxembourgish)documented in this encounter Medications at Time of [...] Yanes MD - 12/14/2018 10:16 AM PDT [facility]: Infectious Diseases Progress Note Hospital [...] Procedure Component Value Units Date/Time Culture, Blood [[id number]] Collected: 12/12/18 1943 Order Status: Canceled Lab Status: No result Specimen: Peripheral Blood Culture, Body Fluid Sterile [[id number]] Order Status: No result Lab Status: No result Specimen: Body Fluid from Pleural Fluid, Right Culture, Blood [[id number]] Collected: 12/12/18 0502 Order Status: Completed Lab Status: Preliminary result Updated: 12/13/18 1324 Specimen: Peripheral Blood Special Requests RWRIST Special Requests Testing performed at [facility];[address] [place] [address] RESULT NO GROWTH AT THIS TIME RESULT Testing performed at [facility], [address] [place] [address] Comment: Testing performed at [facility], [address] [place] [address] Influenza A and B RNA, NAAT [[id number]] Collected: 12/11/18 1556 Order Status: Completed Lab Status: Final result Updated: 12/11/18 1619 Influenza A NEGATIVE Influenza B NEGATIVE Comment: Testing performed by Molecular Methodology Testing performed at [facility];[address] [place] [address] Flu Swab Collection [[id number]] Collected: 12/11/18 1546 Order Status: Completed Lab Status: Final result Updated: 12/11/18 1549 Specimen: Tissue from Nasopharynx Collection SPECIMEN RECEIVED IN LAB Comment: Testing performed at [facility];[address] [place] [address] Culture, Blood [[id number]] Collected: 12/11/18 0615 Order Status: Completed Lab Status: Preliminary result Updated: 12/12/18 1134 Specimen: Peripheral Blood Special Requests RAC Special Requests Testing performed at [facility];[address] [place] [address] RESULT NO GROWTH AT THIS TIME RESULT Testing performed at [facility], [address] [place] [address] Comment: Testing performed at [facility], [address] [place] [address] Culture, Blood [[id number]] (Abnormal) Collected: 12/10/18 2343 Order Status: Completed Lab Status: Final result Updated: 12/13/18 1009 Specimen: Blood from Line Gram Stain Result -- GRAM POSITIVE COCCI IN CLUSTERS SEEN IN AEROBIC BOTTLE SEEN IN ANAEROBIC BOTTLE Gram Stain Result -- SMEAR RESULTS CALLED TO AND READ BACK BY: Brigitte CARTER @ 3666 12/11/18 CDS RESULT STAPHYLOCOCCUS SPECIES, COAGULASE NEGATIVE RESULT GROWTH IN TWO OF TWO BOTTLES RESULT -- TIME TO DETECTION: 0.69 DAYS RESULT POSSIBLE CONTAMINANT, CLINICAL CORRELATION REQUIRED. RESULT Testing performed at [facility], [address] [place] [address] Comment: Testing performed at [facility], [address] [place] [address] Microbiology Results (72 hrs) Procedure Component Value Units Date/Time Culture, Blood [[id number]] Collected: 12/12/18 0502 Order Status: Completed Lab Status: Preliminary result Updated: 12/13/18 1324 Specimen: Peripheral Blood Special Requests RWRIST Special Requests Testing performed at [facility];[address] [place] [address] RESULT NO GROWTH AT THIS TIME RESULT Testing performed at [facility], [address] [place] [address] Comment: Testing performed at [facility], [address] [place] [address] Influenza A and B RNA, NAAT [[id number]] Collected: 12/11/18 1556 Order Status: Completed Lab Status: Final result Updated: 12/11/18 1619 Influenza A NEGATIVE Influenza B NEGATIVE Comment: Testing performed by Molecular Methodology Testing performed at [facility];[address] [place] [address] Flu Swab Collection [[id number]] Collected: 12/11/18 1546 Order Status: Completed Lab Status: Final result Updated: 12/11/18 1549 Specimen: Tissue from Nasopharynx Collection SPECIMEN RECEIVED IN LAB Comment: Testing performed at [facility];[address] [place] [address];[place] [address] IMAGING: No new images for review today. [...] was completed later after rounds. Dictation software, [employer], was used which may contain error for [...] Santos, DO - 12/04 2:42 PM PDT [facility]: Hospitalist Progress Note Pt: [...] PASP is 73 mmHg - Baseline weight cn217wgr. In acute exacerbation - HD per nephrology [...] this note might be different from the [facility] Service: Infectious Diseases Progress Note Hospital Day: [...] Consult Continuous Infusions: heparin 400 Units/hr (12/12/18 6093) PRN Meds:.acetaminophen, albumin, albuterol-ipratropium, nitroglycerin, ondansetron, oxyCOD [...] Procedure Component Value Units Date/Time Culture, Blood [[id number]] Collected: 12/12/18 194 Order Status: Canceled Lab Status: No result Specimen: Peripheral Blood Culture, Body Fluid Sterile [[id number]] Order Status: No result Lab Status: No result Specimen: Body Fluid from Pleural Fluid, Right Culture, Blood [[id number]] Collected: 12/12/18 0502 Order Status: Sent Lab Status: In process Updated: 12/12/18 1005 Specimen: Peripheral Blood Influenza A and B RNA, NAAT [[id number]] Collected: 12/11/18 1556 Order Status: Completed Lab Status: Final result Updated: 12/11/18 1619 Influenza A NEGATIVE Influenza B NEGATIVE Comment: Testing performed by Molecular Methodology Testing performed at [facility];[address] [place] [address] Flu Swab Collection [[id number]] Collected: 12/11/18 1546 Order Status: Completed Lab Status: Final result Updated: 12/11/18 1549 Specimen: Tissue from Nasopharynx Collection SPECIMEN RECEIVED IN LAB Comment: Testing performed at [facility];[address] [place] [address] Culture, Blood [[id number]] Collected: 12/11/18 0615 Order Status: Completed Lab Status: Preliminary result Updated: 12/12/18 1134 Specimen: Peripheral Blood Special Requests RAC Special Requests Testing performed at [facility];[address] [place] [address] RESULT NO GROWTH AT THIS TIME RESULT Testing performed at [facility], [address] [place] [address] Comment: Testing performed at [facility], [address] [place] [address] Culture, Blood [[id number]] (Abnormal) Collected: 12/10/18 2343 Order Status: Completed Lab Status: Final result Updated: 12/13/18 1009 Specimen: Blood from Line Gram Stain Result -- GRAM POSITIVE COCCI IN CLUSTERS SEEN IN AEROBIC BOTTLE SEEN IN ANAEROBIC BOTTLE Gram Stain Result -- SMEAR RESULTS CALLED TO AND READ BACK BY: Brigitte CARTER 6RDerick @ 6056 12/11/18 CDS RESULT STAPHYLOCOCCUS SPECIES, COAGULASE NEGATIVE RESULT GROWTH IN TWO OF TWO BOTTLES RESULT -- TIME TO DETECTION: 0.69 DAYS RESULT POSSIBLE CONTAMINANT, CLINICAL CORRELATION REQUIRED. RESULT Testing performed at [facility], [address] [place] [address] Comment: Testing performed at [address] [address] Microbiology Results (72 hrs) Procedure Component Value Units Date/Time Culture, Blood [[id number]] Collected: 12/12/18 0502 Order Status: Sent Lab Status: In process Updated: 12/12/18 1005 Specimen: Peripheral Blood Influenza A and B RNA, NAAT [[id number]] Collected: 12/11/18 1556 Order Status: Completed Lab Status: Final result Updated: 12/11/18 1619 Influenza A NEGATIVE Influenza B NEGATIVE Comment: Testing performed by Molecular Methodology Testing performed at [facility];[address] [place] [address] Flu Swab Collection [[id number]] Collected: 12/11/18 1546 Order Status: Completed Lab Status: Final result Updated: 12/11/18 1549 Specimen: Tissue from Nasopharynx Collection SPECIMEN RECEIVED IN LAB Comment: Testing performed at [facility];[address] [place] [address] Culture, Blood [[id number]] Collected: 12/11/18 0615 Order Status: Completed Lab Status: Preliminary result Updated: 12/12/18 1134 Specimen: Peripheral Blood Special Requests RAC Special Requests Testing performed at [facility];[address] [place] [address] RESULT NO GROWTH AT THIS TIME RESULT Testing performed at [facility], [address] [place] [address] Comment: Testing performed at [facility], [address] [place] [address] Culture, Blood [[id number]] (Abnormal) Collected: 12/10/18 2343 Order Status: Completed Lab Status: Final result Updated: 12/13/18 1009 Specimen: Blood from Line Gram Stain Result -- GRAM POSITIVE COCCI IN CLUSTERS SEEN IN AEROBIC BOTTLE SEEN IN ANAEROBIC BOTTLE Gram Stain Result -- SMEAR RESULTS CALLED TO AND READ BACK BY: Brigitte CARTER @ 4670 12/11/18 CDS RESULT STAPHYLOCOCCUS SPECIES, COAGULASE NEGATIVE RESULT GROWTH IN TWO OF TWO BOTTLES RESULT -- TIME TO DETECTION: 0.69 DAYS RESULT POSSIBLE CONTAMINANT, CLINICAL CORRELATION REQUIRED. RESULT Testing performed at [facility], [address] [place] [address] Comment: Testing performed at [facility], [address] [place] [address] IMAGING: No new images for review today. [...] was completed later after rounds. Dictation software, [employer], was used which may contain error for [...] 400 Units/hr (12/12/18 0827) Vida Whittaker, [facility] - 12/12/2018 1:37 PM PDTClinical Pharmacy [...] e might be different from the original. [facility] Hospitalist Progress Note Hospital Day: [...] MD 8:29 12/12/2018 rost, Taylor Linda, [facility] - 1 7:46 PM PDT Clinical [...] E | | | | | | [place] [address] | | | | | | [phone] | | | | | | | [...] R?MRN: | | | | | | [id number] | | | [id number] | | | riteri | | | [...] | | | St. | | | [place] | | | y | | | [...] | | | St. | | | [place] | | | y | | | [...] | | | St. | | | [place] | | | y | | | [...] | | | St | | | [place] | | | y | | | [...] St | | | | | | [place] | | | y | | | [...] | | | St. | | | [place] | | | y | | | [...] | | | St. | | | [place] | | | y H. | | [...] | | | St. | | | [place] | | | y H. | | [...] | | | St. | | | [place] | | | y H. | | [...] | | | St. | | | [place] | | | y H. | | [...] | | | St. | | | [place] | | | y H. | | [...] | | | St. | | | [place] | | | y H. | | [...] | | | St. | | | [place] | | | y H. 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 | | | [facility] Hemo-Dialysis Procedure note Pt is seen [...] QB 450 AP | | | -200 Technologist Development 170 Constitutional: pt appears without distress. on [...] | | | | at [facility], [address] | | | | | | [facility], | | | | | | [place] [address] | | | | | |Testing performed at [facility], [address] [place] [address] | | | | | | | | | | + + +---- + + + + + | Specimen | + + | Blood | + + + + + + + | Performing | Address | City/State/Zipcode | Phone Number | | Organization | | | | + + + + + | [facility] | [address] | [place] [address] | [phone] | + + + + + Basic [...] 7 (L)Comment: GFR <60: | >60 | [facility] | | | GFR | CHRONIC KIDNEY [...] | | | performed at [facility], [address] | | | | | | [facility], | | | | | | [place] [address] | | | | + + + + + + + + | Specimen | + + | Blood | + + + + + + + | Performing | Address | City/State/Zipcode | Phone Number | | Organization | | | | + + + + + | [facility] | [address] | [place] [address] | [phone] | + + + + + XR [...] | | | performed at [facility], [address] | | | | | | [facility], | | | | | | [place] [address] | | | | + + + + + + + + | Specimen | + + | Blood | + + + + + + + | Performing | Address | City/State/Zipcode | Phone Number | | Organization | | | | + + + + + | [facility] | [address] | [place] [address] | [phone] | + + + + + [place] [...] ANDREY | | | | performed at [facility], [address] | | LABORATORY | | | | [address] | | | | | | [place] [address] | | | | + + + + + + + + | Specimen | + + | Blood | + + + + + + + | Performing | Address | City/State/Zipcode | Phone Number | | Organization | | | | + + + + + | [facility] | [address] | [place] [address] | [phone] | + + + + + Culture, [...] Special | Testing performed at | | [facility] | | | Requests | [address] | | LABORATORY | | | | [place] [address] | | | | + + + + + + | RESULT | NO GROWTH 6 DAYS | | [facility] | | | | | | LABORATORY | | + + + + + + | RESULT | Testing performed at | | [facility] | | | | TCL, [address] [facility] | | LABORATORY | | | | [place] | | | | | | [id number]: Testing | | | | | | performed at [facility], [address] | | | | | | [place] [place] | | | | | | [address] | | | | + + + + + + + + | Specimen | + + | Blood - Peripheral | | blood specimen | | (specimen) | + + + + + + + | Performing | Address | City/State/Zipcode | Phone Number | | Organization | | | | + + + + + | [facility] | [address] | [place] [address] | [phone] | + + + + + CBC [...] | | | performed at [facility], [address] | | LABORATORY | | | | [address], | | | | | | [place] [address] | | | | + + + + + + + + | Specimen | + + | Blood | + + + + + + + | Performing | Address | City/State/Zipcode | Phone Number | | Organization | | | | + + + + + | [facility] | [address] | [place] [address] | [phone] | + + + + + Basic [...] 7 (L)Comment: GFR <60: | >60 | [facility] | | | GFR | CHRONIC KIDNEY [...] | | | performed at [facility], [address] | | | | | | [facility], | | | | | | [place] [address] | | | | + + + + + + + + | Specimen | + + | Blood | + + + + + + + | Performing | Address | City/State/Zipcode | Phone Number | | Organization | | | | + + + + + | [facility] | [address] | [place] [address] | [phone] | + + + + + Basic [...] | | | | | performed at [facility];[address] | | | | | | [address] [facility];[place], [place] | | | | | | [address] | | | | + + + + + + + + | Specimen | + + | Blood | + + + + + + + | Performing | Address | City/State/Zipcode | Phone Number | | Organization | | | | + + + + + | [facility] | [address] [facility] | [place] [address] | [phone] | + + + + + Influenza [...] | | | | | performed at [facility];[address] | | | | | | [facility];[place], [place] | | | | | | [address] | | | | + + + + + + + + | Specimen | + + | | + + + + + + + | Performing | Address | City/State/Zipcode | Phone Number | | Organization | | | | + + + + + | [facility] | [address] | [place] [address] | [phone] | + + + + + FLU SWAB COLLECTION (12/11/2018 3:46 PM PDT) + + + + + + | Component | Value | Ref Range | Performed | Pathologist | | | | | At | Signature | + + + + + + | Collection | SPECIMEN RECEIVED IN | | [facility] | | | | LABComment: Testing | | LABORATORY | | | | performed at [facility];[address] | | | | | | [address];[place] | | | | | | [address] | | | | + + + + + + + + | Specimen | + + | Tissue - Entire | | nasopharynx (body | | structure) | + + + + + + + | Performing | Address | City/State/Zipcode | Phone Number | | Organization | | | | + + + + + | [facility] | [address] | [place] [address] | [phone] | + + + + + POC Glucose (12/11/2018 8:31 AM PDT) + + + + + + | Component | Value | Ref Range | Performed | Pathologist | | | | | At | Signature | + + + + + + | Glucose, | 84Comment: Testing | 65 - 99 mg/dL | [facility] | | | POC | performed at [facility];[address] | | LABORATORY | | | | [address];[place], [place] | | | | | | [address] | | | | + + + + + + + + | Specimen | + + | | + + + + + + + | Performing | Address | City/State/Zipcode | Phone Number | | Organization | | | | + + + + + | [facility] | [address] | [place] [address] | [phone] | + + + + + ECG [...] | | | | | ONLY, -COMPUTER (050), | | | | | | news editor Dainela Luciano | | | | | | [...] [facility] | | | | performed at [facility];[address] | | LABORATORY | | | | [address];[place] | | | | | | [address] | | | | + + + + + + + + | Specimen | + + | Blood | + + + + + + + | Performing | Address | City/State/Zipcode | Phone Number | | Organization | | | | + + + + + | [facility] | [address] | [place] [address] | [phone] | + + + + + Basic Metabolic Panel (12/11/2018 6:15 AM PDT) + + + + + + | Component | Value | Ref Range | Performed | Pathologist | | | | | At | Signature | + + + + + + | Na | 136 | 135 - 145 | [facility] | | | | | mmol/L | LABORATORY | | + + + + + + | K | 6.8 ()Comment: RESULT | 3.5 - 4.9 | [facility] | | | | READ BACK BY:ABRIL HUERTA | mmol/L | LABORATORY | | | | M ON [id number] 2 0710 BY | | | | | | [...] | | | | | performed at [facility];[address] | | | | | | [facility];[place], [place] | | | | | | [address] | | | | + + + + + + + + | Specimen | + + | Blood | + + + + + + + | Performing | Address | City/State/Zipcode | Phone Number | | Organization | | | | + + + + + | [facility] | [address] | [place] [address] | [phone] | + + + + + Culture, [...] Special | Testing performed at | | [facility] | | | Requests | [facility];[address] | | LABORATORY | | | | [place] [address] | | | | + + + + + + | RESULT | NO GROWTH 6 DAYS | | [facility] | | | | | | LABORATORY | | + + + + + + | RESULT | Testing performed at | | [facility] | | | | T[facility], [address] [facility] | | LABORATORY | | | | [place] | | | | | | [id number]: Testing | | | | | | performed at [facility], [address] | | | | | | [address] [place] | | | | | | [address] | | | | + + + + + + + + | Specimen | + + | Blood - Peripheral | | blood specimen | | (specimen) | + + + + + + + | Performing | Address | City/State/Zipcode | Phone Number | | Organization | | | | + + + + + | [facility] | [address] | [place] [address] | [phone] | + + + + + CT [...] LABORATORY | | | | performed at [facility];[address] | | | | [address];[place] | | | | | | [address] | | | | + + + + + + + + | Specimen | + + | | + + + + + + + | Performing | Address | City/State/Zipcode | Phone Number | | Organization | | | | + + + + + | [facility] | [address] | [place] [address] | [phone] | + + + + + Lactic Acid (12/11/2018 1:04 AM PDT) + + + + + + | Component | Value | Ref Range | Performed | Pathologist | | | | | At | Signature | + + + + + + | Lactate, | 1.2Comment: Testing | 0.4 - 2.0 | [facility] | | | Serum | performed at [facility];[address] | mmol/L | LABORATORY | | | | [address];[place] | | | | | | [address] | | | | + + + + + + + + | Specimen | + + | Blood | + + + + + + + | Performing | Address | City/State/Zipcode | Phone Number | | Organization | | | | + + + + + | [facility] | [address] | [place] [address] | [phone] | + + + + + Lactic Acid (12/10/2018 11:44 PM PDT) + + + + + + | Component | Value | Ref Range | Performed | Pathologist | | | | | At | Signature | + + + + + + | Lactate, | 0.8Comment: Testing | 0.4 - 2.0 | [facility] | | | Serum | performed at [facility];[address] | mmol/L | LABORATORY | | | | [address];[place] | | | | | | [address] | | | | + + + + + + + + | Specimen | + + | Blood | + + + + + + + | Performing | Address | City/State/Zipcode | Phone Number | | Organization | | | | + + + + + | [facility] | [address] | [place] [address] | [phone] | + + + + + Culture, [...] | | | BY:Brigitte CARTER 6RDerick @ 6865 | | | | | | 12/11/18 [...] RESULT | Testing performed at | | [facility] | | | | [facility], [address] | | LABORATORY | | | | [place], [place] | | | | | | [id number]: Testing | | | | | | performed at [facility], [address] | | | | | | [address], | | | | | | [place] [address] | | | | + + + + + + + + | Specimen | + + | Blood - Swab of line | | insertion site | | (specimen) | + + + + + + + | Performing | Address | City/State/Zipcode | Phone Number | | Organization | | | | + + + + + | [facility] | [address] | [place] [address] | [phone] | + + + + + XR [...] at | | | | | | [facility];[address] [place] [address] | | | | | | [facility];[place] [address] | | | | + + + + + + + + | Specimen | + + | Blood | + + + + + + + | Performing | Address | City/State/Zipcode | Phone Number | | Organization | | | | + + + + + | [facility] | [address] | [place] [address] | [phone] | + + + + + Protime INR (12/10/2018 11:02 PM PDT) + + + + + + | Component | Value | Ref Range | Performed | Pathologist | | | | | At | Signature | + + + + + + | INR | 1.3Comment: REFERENCE | | [facility] | | | | RANGE:0.9 - 1.2 [...] | | | | | performed at [facility];[address] | | | | | | [address];[place] | | | | | | [address] | | | | + + + + + + + + | Specimen | + + | Blood | + + + + + + + | Performing | Address | City/State/Zipcode | Phone Number | | Organization | | | | + + + + + | [facility] | [address] | [place] [address] | [phone] | + + + + + CBC [...] | | | | | | at [facility];[address];[place] [address] | | | | | |NORMAL PLT MORPH | | | | | |Testing performed at [facility];[address];[place] [address] | | | | | | | | | | + + + + + + + + | Specimen | + + | Blood | + + + + + + + | Performing | Address | City/State/Zipcode | Phone Number | | Organization | | | | + + + + + | [facility] | [address] | [place] [address] | [phone] | + + + + + Phosphorus (12/10/2018 11:02 PM PDT) + + + + + + | Component | Value | Ref Range | Performed | Pathologist | | | | | At | Signature | + + + + + + | Phosphorus | 8.9 (H)Comment: Testing | 2.3 - 4.8 mg/dL | [facility] | | | | performed at [facility];[address] | | LABORATORY | | | | [address];[place], [place] | | | | | | [address] | | | | + + + + + + + + | Specimen | + + | Blood | + + + + + + + | Performing | Address | City/State/Zipcode | Phone Number | | Organization | | | | + + + + + | [facility] | [address] | [place] [address] | [phone] | + + + + + Magnesium (12/10/2018 11:02 PM PDT) + + + + + + | Component | Value | Ref Range | Performed | Pathologist | | | | | At | Signature | + + + + + + | Magnesium | 2.2Comment: Testing | 1.7 - 2.4 mg/dL | [facility] | | | | performed at [facility];[address] | | LABORATORY | | | | [address];[place], [place] | | | | | | [address] | | | | + + + + + + + + | Specimen | + + | Blood | + + + + + + + | Performing | Address | City/State/Zipcode | Phone Number | | Organization | | | | + + + + + | [facility] | [address] | [place] [address] | [phone] | + + + + + Comprehensive [...] 22 | 10 - 65 U/L | [facility] | | | | | | LABORATORY | | + + + + + + | Estimated | 3 (L)Comment: GFR <60: | >60 | [facility] | | | GFR | CHRONIC KIDNEY [...] | | | | | performed at [facility] | | | | | | [facility];[place], [place] | | | | | | [address] | | | | + + + + + + + + | Specimen | + + | Blood | + + + + + + + | Performing | Address | City/State/Zipcode | Phone Number | | Organization | | | | + + + + + | [facility] | [address] | [place] [address] | [phone] | + + + + + ECG [...] | | | | | ONLY, -COMPUTER ([id number]), | | | | | | news editor Daniela Luciano | | | | [...]
--- OUTSIDE RECORDS SUMMARY | ~2019-03-08 | XMS | Encounter Summary ---
Demographics + + + | Address | [address] | | | [place] [address] | + + + | Home Phone [...] | [facility] | | | and [place] | + + + | Organization | [facility] | [...] Providers + +------+ + | Care Nutrition And Dietetics Instructor Name | Role | Phone | [...] stage renal | [address] | [address] [place] [address] | | | | | disease) | Shun Griffin | [place] | | | | | ([facility]LY [facility]) | [address] | [address] | | | | | Anemia in | [place], [place] | [address] | | | | | ESRD | [address] | [address] Phone: | | | | | (end-stage | Phone: | [phone] | | | | | renal | [phone] | Fax: | | | | | disease) | Fax: | [phone] | | | | | ([facility]) | [phone] | | | | | | Procedures [...] | | [address] | [place] | (Primary Dx); | | | | [place], [place] | [place], [place] | 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 CC: [place] Fina Joy MD, [facility], [facility] signed by Jorje Camp DO [...] [address] | | | | | | [place] [address] | | | | | | [phone] | | | | | | | [...]
--- OUTSIDE RECORDS SUMMARY | ~2019-03-08 | XMS | Encounter Summary ---
Demographics + + + | Address | [address] | | | [place] [address] | + + + | Home Phone [...] | | | | | [place] [address] | | + + + + + | Thania Mallory | ECON | [address] | | | | | [place] [address] | | + + + + + | Deidra Weldon | ECON | [address] | | | | | [place] | | | | | [address] | | + + + + + Care Team Providers + +------+ + | Care Forest Management Professor Name | Role | Phone | [...] | [address] | [facility] | | | | | [facility], | [place], [place] | | | | | [place] [address] | [address] | | | | | [phone] | | | +--------+ + + + [...] Denise | | | | | | [place] | | | | | | [address] | | | | | | [phone] | | | | | | | | +--------+ + + + + documented as of this encounter Visit Diagnoses Not on filedocumented in this encounter"
--- OUTSIDE RECORDS SUMMARY | ~2019-03-08 | XMS | Encounter Summary ---
Demographics + + + | Address | [address] | | | [place] [address] | + + + | Home Phone [...] | Author | [facility] | | | and [place] | + + + | Organization | [facility] | [...] Providers + +------+ + | Care Field Merchandiser Name | Role | Phone | + [...] to | | | obtain one in [place]. I explained that we would have to [...] | | KIDNEY TRANSPLANT | [address], | (Dara whelan so I | | | | [address] [place] | [place] [address] | called her back to | | | | [address] [place], [place] | [phone] | complete intake | | | | [address] | | questionnaire. She | | | | [phone] | | currently ingests | | | [...] | | | | | one in [place]. I | | | | | | [...] she would have to obtain one in [place]. I explained that we would have to [...] | | | | | | [place] [address] | | | | | | [phone] | | | | | | | | +--------+---------+ + + + documented as of this encounter Visit Diagnoses Not on filedocumented in this encounter"
--- OUTSIDE RECORDS SUMMARY | ~2019-03-08 | XMS | Encounter Summary ---
Demographics + + + | Address | [address] | | | [place] [address] | + + + | Home Phone [...] Author | [facility] | | | and [place] | + + + | Organization | [facility] | | | and [place] | + + + | Address | Unknown | + + + | Phone | Unavailable | + + + Support + + +---------+ + | Name | Relationship | Address | Phone | + + +---------+ + | Thnaia Mallory | ECON | Unknown | | + + +---------+ + | Saundra Mallory | ECON | Unknown | | + + +---------+ + Care Team Providers + +------+ + | Care Hydrodynamicist Name | Role | Phone | + +------+ + PCP | Unavailable | + +------+ + Encounter Details +--------+ + + + + | Date | Type | Department | Care Team | Description | +--------+ + + + + | 04/30/ | Hospital | [facility] | Sudhakar Joy | | | 2010 | Encounter | JOY | MD Emanuel [address] | | | | | [address] | [facility] | | | | | [address] | [place], [place] | | | | | [place], [place] | [address] | | | | | [address] | [phone] | | | | | [phone] | | | +--------+ + + + [...] [address] | | | | | | [place] [address] | | | | | | [phone] | | | | | | | | +--------+---------+ + + + documented as of this encounter Visit Diagnoses Not on filedocumented in this encounter"
--- OUTSIDE RECORDS SUMMARY | ~2019-03-08 | XMS | Encounter Summary ---
Demographics + + + | Address | [address] | | | [place] [address] | + + + | Home Phone [...] | | | | | [place] [address] | | + + + + + | Thania Mallory | ECON | [address] | | | | | [place] [address] | | + + + + + | Deidra Weldon | ECON | [address] | | | | | [place] | | | | | [address] | | + + + + + Care Team Providers + +------+ + | Care Pipe Out Worker Name | Role | Phone [...] | [address] | [address], | | | | | [place], | [place] [address] | | | | | [place] [address] | | | | | | [phone] | | | +--------+ + + + [...] | | | | | | [place] | | | | | | [address] | | | | | | [phone] | | | | | | | | +--------+ + + + + documented as of this encounter Visit Diagnoses Not on filedocumented in this encounter"
--- OUTSIDE RECORDS SUMMARY | ~2019-03-08 | XMS | Encounter Summary ---
Demographics + + + | Address | [address] | | | [place] [address] | + + + | Home Phone [...] | [facility] | | | and [place] | + + + | Organization | [facility] | | [...] Providers + +------+ + | Care Safety Professional Name | Role | Phone | [...] + + | 01/07/ | Hospital | [facility] | Florian Nelson, | Hyperkalemia | | 2019 - | Encounter | [facility] | [address] | (Primary Dx); ESRD | | | | CARE FLOOR [address] | [place] [address] | needing dialysis | | 01/10/ | | [address] | [phone] | ([facility]); Acute | | 2019 | | [place], [place] | | respiratory | | | | [address] | Herccristiana, Megan, DO | distress; Recurrent | | | | [phone] | [address] | right pleural | | | | | [place] [address] | effusion; Anemia in | | | | | [phone] | ESRD (end-stage | | | | | | renal disease) | | | | | Nicholas Sutton MD | ([facility]); At high risk | | | | | [address] | for electrolyte | | | | | [place] [address] | imbalance; Chronic | | | | | [phone] | 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 | | | | | Piedad Mosquera MD | failure ([facility]); | | | | | [address] | Dilated | | | | | [place] [address] | cardiomyopathy | | | | | [phone] | ([facility]); ESRD on | | | | | | hemodialysis ([facility]); | | | | | Paty Kline DO | Noncompliance; | | | | | [address] | Uncontrolled | | | | | [place] [address] | hypertension | | | | | [phone] | | | | | | | [...] a refill from your regular physician or chlorine plant operator. We are always happy to be a [...] the advice of your doctor or health vocational childcare teacher. A special MedGuide will be given to you by the pharmacist with each prescription and refill . Be sure to read this information carefully each time. Talk to your sanding machine buffer regarding the use of this medicine in children. Special care may be needed. What side effects may I notice from receiving this medicine? Side effects that you should report to your doctor or health vocational childcare teacher as soon as p ossible: allergic reactions [...] attention (report to your doctor or health vocational childcare teacher if they continue or are bothersome): dizziness [...] this medicine? Tell your doctor or health vocational childcare teacher if your symptoms do not start to [...] dying should be reported to your health vocational childcare teacher right away. NOTE:This sheet is a summary. [...] was completed later after rounds. Dictation software, Squabbler, was used which may contain error for [...] Nereida Cole RN - 01/09/2019 1:30 PM [id number]- Pt c/o chest pain rated 9/10, described [...] orders at this time, however EKG ordered. senior technical analyst called and en route. 1340- EKG shows [...] of care was discussed with . Cliff Daurte MD 01/09/2019 Portions of my previous notes have been carried over for continuity of chart review/care. She was seen earlier in the day and charting was completed later after rounds. Dictation software, Squabbler, was used which may contain error for [...] Kline DO - 01/09/2019 8:20 AM PST [facility] Adult Hospitalist Progress Note Hospital Day: [...] Hyperkalemia: -Treated in the emergency room at [facility] that he had, potassium now wnl -Secondary [...] of transfusion at this time -Epogen per chlorine plant operator GI and DVT prophylaxis Paty Kline DO [...] was completed later after rounds. Dictation software, Squabbler, was used which may contain error for [...] DO Paty - 01/08/2019 7:50 AM PST [facility] Adult Hospitalist Progress Note Hospital Day: [...] Hyperkalemia: -Treated in the emergency room at [facility] that he had, potassium now 5.8 -Secondary [...] of transfusion at this time -Epogen per chlorine plant operator Hypoglycemia: -Likely secondary to insulin given for her hyperkalemia and decrease PO intake -Hypoglycemic protocol GI and DVT prophylaxis Paty Kline DO 01/08/2019 Piedad Vega MD - 01/07/2019 7:14 AM PST [facility] Service: Hospitalist Progress Note Hospital Day: LOS: 0 days SUBJECTIVE Patient Summary: From HPI Dr. Martínez 01/07/19 The patient is a 23 y.o. female with significant past medical history of HSP nephritis, rig ht pleural effusions recurrent, thoracentesis, bacteremia, clotted hemodialysis catheter, no ncompliance, asthma who presents transferred from [facility] with hyperkalemia, hyperte nsion noncompliant with hemodialysis, [...] life. Patient was treated for hyperkalemia in [facility] as her potassium was 6.8. The data from [facility] was a chest x-ray which shows motion [...] for input(s): IRON, TIBC, PCTSAT, FERRITIN, TSH, [id number], FOLATE in the last 168 hours. No [...] Hyperkalemia: -Treated in the emergency room at [facility] that he had, potassium now 5.8 -Secondary [...] of transfusion at this time -Epogen per chlorine plant operator Hypoglycemia: -Likely secondary to insulin given for [...] | | | | [place] [address] | | | | | | [phone] | | | | | | | [...] at [facility];[address] | | LABORATORY | | | | [address];[place], [place] | | | | | | [address] | | | | + + + + + + + + | Specimen | + + | | + + + + + + + | Performing | Address | City/State/Zipcode | Phone Number | | Organization | | | | + + + + + | [facility] | [address] | [place] [address] | [phone] | + + + + + POC [...] at [facility];[address] | | LABORATORY | | | | [address];[place] | | | | | | [address] | | | | + + + + + + + + | Specimen | + + | | + + + + + + + | Performing | Address | City/State/Zipcode | Phone Number | | Organization | | | | + + + + + | [facility] | [address] | [place] [address] | [phone] | + + + + + CBC [...] MISHEL | | | | performed at [facility];[address] | | LABORATORY | | | | [address];[place], [place] | | | | | | [address] | | | | + + + + + + + + | Specimen | + + | Blood | + + + + + + + | Performing | Address | City/State/Zipcode | Phone Number | | Organization | | | | + + + + + | [facility] | [address] | [place] [address] | [phone] | + + + + + Phosphorus (01/10/2019 7:03 AM PST) + + + + + + | Component | Value | Ref Range | Performed | Pathologist | | | | | At | Signature | + + + + + + | Phosphorus | 5.4 (H)Comment: Testing | 2.3 - 4.8 mg/dL | [facility] | | | | performed at [facility];[address] | | LABORATORY | | | | [address];[place], [place] | | | | | | [address] | | | | + + + + + + + + | Specimen | + + | Blood | + + + + + + + | Performing | Address | City/State/Zipcode | Phone Number | | Organization | | | | + + + + + | [facility] | [address] | [place] [address] | [phone] | + + + + + Magnesium (01/10/2019 7:03 AM PST) + + + + + + | Component | Value | Ref Range | Performed | Pathologist | | | | | At | Signature | + + + + + + | Magnesium | 2.0Comment: Testing | 1.7 - 2.4 mg/dL | [facility] | | | | performed at [facility];[address] | | LABORATORY | | | | [address];[place] | | | | | | [address] | | | | + + + + + + + + | Specimen | + + | Blood | + + + + + + + | Performing | Address | City/State/Zipcode | Phone Number | | Organization | | | | + + + + + | [facility] | [address] | [place] [address] | [phone] | + + + + + Basic [...] [place];[address] | | | | | | [facility];[place], [place] | | | | | | [address] | | | | + + + + + + + + | Specimen | + + | Blood | + + + + + + + | Performing | Address | City/State/Zipcode | Phone Number | | Organization | | | | + + + + + | [facility] | [address] | [place] [address] | [phone] | + + + + + POC Glucose (01/09/2019 9:10 PM PST) + + + + + + | Component | Value | Ref Range | Performed | Pathologist | | | | | At | Signature | + + + + + + | Glucose, | 141 (H)Comment: Testing | 65 - 99 mg/dL | [facility] | | | POC | performed at [facility];[address] | | LABORATORY | | | | [address];[place], [place] | | | | | | [address] | | | | + + + + + + + + | Specimen | + + | | + + + + + + + | Performing | Address | City/State/Zipcode | Phone Number | | Organization | | | | + + + + + | [facility] | [address] | [place] [address] | [phone] | + + + + + POC [...] at [facility];[address] | | LABORATORY | | | | [address];[place], [place] | | | | | | [address] | | | | + + + + + + + + | Specimen | + + | | + + + + + + + | Performing | Address | City/State/Zipcode | Phone Number | | Organization | | | | + + + + + | [facility] | [address] | [place] [address] | [phone] | + + + + + XR [...] | | PORTABLE (01/07/2019); CHEST TWO VIEWS 63667 (01/06/2019); XR CHEST AP | | | [...] PORTABLE (01/07/2019); | | CHEST TWO VIEWS 98654 (01/06/2019); XR CHEST AP PORTABLE (12/13/2018); | [...] at [facility];[address] | | LABORATORY | | | | [address];[place], [place] | | | | | | [address] | | | | + + + + + + + + | Specimen | + + | | + + + + + + + | Performing | Address | City/State/Zipcode | Phone Number | | Organization | | | | + + + + + | [facility] | [address] | [place] [address] | [phone] | + + + + + Comprehensive [...] [place];[address] | | | | | | [facility];[place], [place] | | | | | | [address] | | | | + + + + + + + + | Specimen | + + | Blood | + + + + + + + | Performing | Address | City/State/Zipcode | Phone Number | | Organization | | | | + + + + + | [facility] | [address] | [place] [address] | [phone] | + + + + + CBC [...] | | LABORATORY | | | | [address] [place] [address] | | | | | | Blvd;[place] [address] | | | | + + + + + + + + | Specimen | + + | Blood | + + + + + + + | Performing | Address | City/State/Zipcode | Phone Number | | Organization | | | | + + + + + | [facility] | [address] | [place] [address] | [phone] | + + + + + POC Glucose (01/09/2019 7:50 AM PST) + + + + + + | Component | Value | Ref Range | Performed | Pathologist | | | | | At | Signature | + + + + + + | Glucose, | 161 (H)Comment: Testing | 65 - 99 mg/dL | [facility] | | | POC | performed at [facility];[address] | | LABORATORY | | | | [address];[place] | | | | | | [address] | | | | + + + + + + + + | Specimen | + + | | + + + + + + + | Performing | Address | City/State/Zipcode | Phone Number | | Organization | | | | + + + + + | [facility] | [address] | [place] [address] | [phone] | + + + + + POC Glucose (01/09/2019 6:19 AM PST) + + + + + + | Component | Value | Ref Range | Performed | Pathologist | | | | | At | Signature | + + + + + + | Glucose, | 88Comment: Testing | 65 - 99 mg/dL | [facility] | | | POC | performed at [facility];[address] | | LABORATORY | | | | [address];[place] | | | | | | [address] | | | | + + + + + + + + | Specimen | + + | | + + + + + + + | Performing | Address | City/State/Zipcode | Phone Number | | Organization | | | | + + + + + | [facility] | [address] | [place] [address] | [phone] | + + + + + POC [...] at [facility];[address] | | LABORATORY | | | | [address];[place], [place] | | | | | | [address] | | | | + + + + + + + + | Specimen | + + | | + + + + + + + | Performing | Address | City/State/Zipcode | Phone Number | | Organization | | | | + + + + + | [facility] | [address] | [place] [address] | [phone] | + + + + + POC [...] at [facility];[address] | | LABORATORY | | | | [address];[place] | | | | | | [address] | | | | + + + + + + + + | Specimen | + + | | + + + + + + + | Performing | Address | City/State/Zipcode | Phone Number | | Organization | | | | + + + + + | [facility] | [address] | [place] [address] | [phone] | + + + + + POC [...] at [facility];[address] | | LABORATORY | | | | [address];[place] | | | | | | [address] | | | | + + + + + + + + | Specimen | + + | | + + + + + + + | Performing | Address | City/State/Zipcode | Phone Number | | Organization | | | | + + + + + | [facility] | [address] | [place] [address] | [phone] | + + + + + POC [...] at [facility];[address] | | LABORATORY | | | | [address];[place] | | | | | | [address] | | | | + + + + + + + + | Specimen | + + | | + + + + + + + | Performing | Address | City/State/Zipcode | Phone Number | | Organization | | | | + + + + + | [facility] | [address] | [place] [address] | [phone] | + + + + + Comprehensive [...] 6 (L)Comment: GFR <60: | >60 | [facility] | | | GFR | CHRONIC [...] Hospital, | | | | | | [place] [address] | | | | + + + + + + + + | Specimen | + + | Blood | + + + + + + + | Performing | Address | City/State/Zipcode | Phone Number | | Organization | | | | + + + + + | [facility] | [address] | [place] [address] | [phone] | + + + + + CBC [...] | | | | | [place] [address] | | | | + + + + + + + + | Specimen | + + | Blood | + + + + + + + | Performing | Address | City/State/Zipcode | Phone Number | | Organization | | | | + + + + + | [facility] | [address] | [place] [address] | [phone] | + + + + + POC Glucose (01/07/2019 9:07 PM PST) + + + + + + | Component | Value | Ref Range | Performed | Pathologist | | | | | At | Signature | + + + + + + | Glucose, | 108 (H)Comment: Testing | 65 - 99 mg/dL | [facility] | | | POC | performed at [facility];[address] | | LABORATORY | | | | [address];[place] | | | | | | [address] | | | | + + + + + + + + | Specimen | + + | | + + + + + + + | Performing | Address | City/State/Zipcode | Phone Number | | Organization | | | | + + + + + | [facility] | [address] | [place] [address] | [phone] | + + + + + POC [...] at [facility];[address] | | LABORATORY | | | | [address];[place] | | | | | | [address] | | | | + + + + + + + + | Specimen | + + | | + + + + + + + | Performing | Address | City/State/Zipcode | Phone Number | | Organization | | | | + + + + + | [facility] | [address] | [place] [address] | [phone] | + + + + + CT [...] adenopathy. Upper Abdomen: The | | | tribal kidneys are atrophic. There is a small [...] No adenopathy. | | Upper Abdomen: The tribal kidneys are atrophic. There is a small [...] at [facility];[address] | | LABORATORY | | | | [address];[place], [place] | | | | | | [address] | | | | + + + + + + + + | Specimen | + + | | + + + + + + + | Performing | Address | City/State/Zipcode | Phone Number | | Organization | | | | + + + + + | [facility] | [address] | [place] [address] | [phone] | + + + + + Hepatitis [...] | | LABORATORY | | | | [facility], [address] | | | | | | [place] | | | | | | [address] | | | | + + + + + + + + | Specimen | + + | Blood | + + + + + + + | Performing | Address | City/State/Zipcode | Phone Number | | Organization | | | | + + + + + | [facility] | [address] | [place] [address] | [phone] | + + + + + POC Glucose (01/07/2019 7:14 AM PST) + + + + + + | Component | Value | Ref Range | Performed | Pathologist | | | | | At | Signature | + + + + + + | Glucose, | 83Comment: Testing | 65 - 99 mg/dL | [facility] | | | POC | performed at [facility];[address] | | LABORATORY | | | | [address];[place] | | | | | | [address] | | | | + + + + + + + + | Specimen | + + | | + + + + + + + | Performing | Address | City/State/Zipcode | Phone Number | | Organization | | | | + + + + + | [facility] | [address] | [place] [address] | [phone] | + + + + + XR [...] (500), | | | | | | research editor JOSH CHAPPELL | | | | | | ([id number]) on 01/07/2019 | | | | | [...] at [facility];[address] | | LABORATORY | | | | [address];[place] | | | | | | [address] | | | | + + + + + + + + | Specimen | + + | | + + + + + + + | Performing | Address | City/State/Zipcode | Phone Number | | Organization | | | | + + + + + | [facility] | [address] | [place] [address] | [phone] | + + + + + POC Glucose (01/07/2019 2:08 AM PST) + + + + + + | Component | Value | Ref Range | Performed | Pathologist | | | | | At | Signature | + + + + + + | Glucose, | 67Comment: Testing | 65 - 99 mg/dL | [facility] | | | POC | performed at [facility];[address] | | LABORATORY | | | | [address];[place] | | | | | | [address] | | | | + + + + + + + + | Specimen | + + | | + + + + + + + | Performing | Address | City/State/Zipcode | Phone Number | | Organization | | | | + + + + + | [facility] | [address] | [place] [address] | [phone] | + + + + + Troponin I (01/07/2019 1:40 AM PST) + + + + + + | Component | Value | Ref Range | Performed | Pathologist | | | | | At | Signature | + + + + + + | Troponin I | 0.149 (H)Comment: 0.04 | 0.00 - 0.04 | [facility] | | | | ng/mL or [...] | | | | [facility];[address] [place] [address] | | | | | | Blvd;[place] [address] | | | | + + + + + + + + | Specimen | + + | Blood | + + + + + + + | Performing | Address | City/State/Zipcode | Phone Number | | Organization | | | | + + + + + | [facility] | [address] | [place] [address] | [phone] | + + + + + Comprehensive [...] 38 | 10 - 65 U/L | [facility] | | | | | | LABORATORY | | + + + + + + | Estimated | 3 (L)Comment: GFR <60: | >60 | [facility] | | | GFR | CHRONIC [...] | | performed at [facility];[address] | | | | | | [facility];[place], [place] | | | | | | [address] | | | | + + + + + + + + | Specimen | + + | Blood | + + + + + + + | Performing | Address | City/State/Zipcode | Phone Number | | Organization | | | | + + + + + | [facility] | [address] | [place] [address] | [phone] | + + + + + CBC [...] | | | | | | at [facility];[address] [place] [address] | | | | | | Blvd;[place] [address] | | | | | |NORMAL PLT MORPH | | | | | |Testing performed at [facility];[address] [place] [address];[place] [address] | | | | | | | | | | + + + + + + + + | Specimen | + + | Blood | + + + + + + + | Performing | Address | City/State/Zipcode | Phone Number | | Organization | | | | + + + + + | [facility] | [address] | [place] [address] | [phone] | + + + + + Thoracentesis [...] space: 6th Puncture method: | | | xeuv-lnx-vgfzdx catheter Needle size: 18 Catheter size: 18 [...] Chronic combined systolic and diastolic heart failure ([facility]) Chronic combined systolic | | and diastolic heart failure | + + | Dilated cardiomyopathy ([facility]) Other primary cardiomyopathies | + + | ESRD on hemodialysis ([facility]) End stage renal disease | + [...] anxiety with hemodialysis, | | | Starting [facility] 01/10/19 at 0952 | | + [...]
--- OUTSIDE RECORDS SUMMARY | ~2019-03-08 | XMS | Encounter Summary ---
Demographics + + + | Address | [address] | | | [place] [address] | + + + | Home Phone [...] | | | | | [place] [address] | | + + + + + | Thania Mallory | ECON | [address] | | | | | [place] [address] | | + + + + + | Deidra Weldon | ECON | [address] | | | | | [place] | | | | | [address] | | + + + + + Care Team Providers + +------+ + | Care Catering Director Name | Role | Phone | [...] on | | | | Caro [place], | [place], [place] | psychosocial goals | | | | [place] [address] | [address] | related to listing | | | | [phone] | | status) | +--------+ + + [...] [place] | | | | | | [address] | | | | | | [phone] | | | | | | | | +--------+ + + + + documented as of this encounter Visit Diagnoses Not on filedocumented in this encounter"
--- OUTSIDE RECORDS SUMMARY | ~2019-03-08 | XMS | Encounter Summary ---
Demographics + + + | Address | [address] | | | [place] [address] | + + + | Home Phone [...] + | Author | [facility] | | | and [place] | + + + | Organization | [facility] [...] Providers + +------+ + | Care Newspaper Photojournalist Name | Role | Phone | + [...] | | [address] | [place] | | | | | [place], [place] | [place], [place] | | | | | [address] | [address] | | | | | [phone] | | | +--------+--------+ + + + [...] | | | | | [place] [address] | | | | | | [phone] | | | | | | | | +--------+---------+ + + + documented as of this encounter Visit Diagnoses Not on filedocumented in this encounter"
--- OUTSIDE RECORDS SUMMARY | ~2019-03-08 | XMS | Encounter Summary ---
Demographics + + + | Address | [address] | | | [place] [address] | + + + | Home Phone [...] | | | | | [place] [address] | | + + + + + | Thania Mallory | ECON | [address] | | | | | [place] [address] | | + + + + + | Deidra Weldon | ECON | [address] | | | | | [place] | | | | | [address] | | + + + + + Care Team Providers + +------+ + | Care Biztalk Software Developer Name | Role | Phone [...] change | | | | Caro [place], | [place], [place] | clinic appt) | | | | [place] [address] | [address] | | | | | [phone] | | | +--------+ + + + [...] [place] | | | | | | [address] | | | | | | [phone] | | | | | | | | +--------+ + + + + documented as of this encounter Visit Diagnoses Not on filedocumented in this encounter"
--- OUTSIDE RECORDS SUMMARY | ~2019-03-08 | XMS | Encounter Summary ---
Demographics + + + | Address | [address] | | | [place] [address] | + + + | Home Phone [...] | | | | | [place] [address] | | + + + + + | Thania Mallory | ECON | [address] | | | | | [place] [address] | | + + + + + | Deidra Weldon | ECON | [address] | | | | | [place] | | | | | [address] | | + + + + + Care Team Providers + +------+ + | Care Manager Business Information Name | Role | Phone | + [...] | | [address] | [facility] | | | | | [facility], | [place], [place] | | | | | [place] [address] | [address] | | | | | [phone] | | | +--------+ + + + [...] Denise | | | | | | [place], [place] | | | | | | [address] | | | | | | [phone] | | | | | | | | +--------+ + + + + documented as of this encounter Visit Diagnoses Not on filedocumented in this encounter"
--- OUTSIDE RECORDS SUMMARY | ~2019-03-08 | XMS | Encounter Summary ---
Demographics + + + | Address | [address] | | | [place] [address] [...] Author | [facility] | | | and [place] | + + + | Organization | [facility] [...] Providers + +------+ + | Care Caul Dresser Name | Role | Phone | [...] | NEPHROLOGY [address] | renal disease) ([facility]) | | | | [address] | [address] [place] | (Primary Dx); | | | | [place], [place] | [place] [address] | Depression | | | | [address] | [phone] | | | | | [phone] | | | +--------+ + + + [...] [address] | | | | | | [place] [address] | | | | | | [phone] | | | | | | | | +--------+---------+ + + + documented as of this encounter Visit Diagnoses + + | Diagnosis | + + | ESRD (end stage renal disease) (HCC) - Primary End stage renal disease | + + | Depression Depressive disorder, not elsewhere classified | + + documented in this encounter"
--- OUTSIDE RECORDS SUMMARY | ~2019-03-08 | XMS | Encounter Summary ---
Demographics + + + | Address | [address] | | | [place] [address] | + + + | Home Phone [...] | | | | | [place] [address] | | + + + + + | Thania Mallory | ECON | [address] | | | | | [place] [address] | | + + + + + | Deidra Weldon | ECON | [address] | | | | | [place] | | | | | [address] | | + + + + + Care Team Providers + +------+ + | Care Vocational Training Instructor Name | Role | Phone | [...] | Nephrology at | MD Emanuel [address] [facility] | | | | | [place] | [facility] | | | | | [facility] | [place], [place] | | | | | [address] [facility] | [address] | | | | | Mailcode: DCH7 | [phone] | | | | | Alexander | | | | | | [place], [place] | | | | | | [address] | | | | | | [phone] | | | +--------+ + + + [...] [facility] | | | | | | [address] | | | | | | [phone] | | | | | | | | +--------+ + + + + documented as of this encounter Visit Diagnoses Not on filedocumented in this encounter"
--- OUTSIDE RECORDS SUMMARY | ~2019-03-08 | XMS | Encounter Summary ---
Demographics + + + | Address | [address] | | | [place] [address] | + + + | Home Phone [...] Author | [facility] | | | and Josephana | + + + | Organization | [facility] [...] | stage renal | [address] | [address] [place] [address] | | | | | disease) | Shun Griffin | Jaciel Gotti | | | | | ([facility]) | [address] | [address] | | | | | Anemia in | [place], [place] | [place] | | | | | ESRD | [address] | [address] Phone: | | | | | (end-stage | Phone: | [phone] | | | | | renal | [phone] | Fax: | | | | | disease) | Fax: | [phone] | | | | | ([facility]) | [phone] | | | | | | Procedures [...] | | [address] | [place] | (Primary Dx) | | | | [place], [place] | [place], [place] | | | | | [address] | [address] | | | | | [phone] | | | +--------+ + + + [...] parathyroidectomy she should let myself or the scrap charger no. She will be rechecked in 2 weeks. : [place] Fina documented in t his encounter Plan [...] [address]SON | | | | | | [place] [address] | | | | | | [phone] | | | | | | | | +--------+---------+ + + + documented as of this encounter Visit Diagnoses + + | Diagnosis | + + | ESRD (end stage renal disease) (HCC) - Primary End stage renal disease | + + documented in this encounter"
--- OUTSIDE RECORDS SUMMARY | ~2019-03-08 | XMS | Encounter Summary ---
Demographics + + + | Address | [address] | | | [place] [address] | + + + | Home Phone [...] + | Author | [facility] | | | and Josephana | + + + | Organization | [facility] | | [...] Providers + +------+ + | Care Brazer Helper Induction Name | Role | Phone | + +------+ + | Tien Nicholson MD | PCP | | + +------+ + Encounter Details +--------+ + + + + | Date | Type | Department | Care Team | Description | +--------+ + + + + | 08/20/ | Hospital | [facility] | Ramón Dunn | Non-cardiogenic | | 2019 - | Encounter | [facility] | MD Juan Alberto [address] | pulmonary edema | | | | CARE FLOOR [address] [place], [place] | | | 08/23/ | | [address] | [address] | | | 2019 | | [place], [place] | | | | | | [address] | | | | | | [phone] | | | +--------+ + + + [...] om the original. Discharge Summaries by Paty Klnie DO at 08/23/18818 Author: Paty Kline DO Service: Hospitalist Author Type: Physician Filed: 08/23/18 1300 Date of Service: 08/23/18818 Status: Signed Building And Grounds Supervisor: Paty Kline DO (Physician) Patient: Dara Weldon [...] presented to the emergency d epartment of [facility] in [place] on 08/21 for dyspnea and underwent right t horacentesis with removal of 2.5L of fluid. Patient was sent home after the procedure. Muriel rtly thereafter patient became very short of breath and started having pinkish frothy sputum . Patient also developed right-sided chest pain over area of thoracentesis. She returned t o emergency department of [facility]. Patient was tachycardic and short of b reath but was saturating well on room air. Chest x-ray showed pulmonary edema of right bridgette g but left lung was reportedly normal. Patient was transferred to [facility] for acute hypoxic respiratory failure [...] Nicholson MD [address] [place] [id number] Medication List CHANGE how you take these [...] 08/23/181305 Date of Service: 08/23/181305 Status: Signed Building And Grounds Supervisor: Mitzy Schilling RN (Registered Nurse) Pt A&Ox4, [...] Date of Service: 08/23/18 1144 Status: Signed Building And Grounds Supervisor: Patria Norman RN (Registered Nurse) CM placed call to Pts PCP and they will contact pt to schedule follow up appointment as gopal n as possible. CM placed call to [facility] Pulmonology to attempt to move [...] 08/23/187 Date of Service: 08/23/181136 Status: Signed Building And Grounds Supervisor: Mitzy Schilling RN (Registered Nurse) Resumed care from ABRIL Carranza. Agree with assessments thus far. Will continue to monitor. Mitzy Schilling RN onver arturo Transaction, Provider Unknown - 08/23/2018 2:34 AM PDT Nurse Progress Note by Hannah Madrigal RN at 08/23/184 Author: Hannah Madrigal RN Service: (none) Author Type: Registered Nurse Filed: 08/23/18 0530 Date of Service: 08/23/18233 Status: Signed Building And Grounds Supervisor: Hannah Madrigal RN (Registered Nurse) VSS, pt [...] 08/22/181827 Date of Service: 08/22/181823 Status: Signed Building And Grounds Supervisor: Paco Macedo RN (Registered Nurse) Patient is [...] 08/22/181808 Date of Service: 08/22/181800 Status: Signed Building And Grounds Supervisor: Brent Greenberg () inspector of dredging appreciated. Pt sitting up in bed. Pt [...] to find a grief support group in [facility] where she lives. Chp affirmed this as an excellent idea. Chp assured pt of continuing g ood thoughts for pt. Pt thanked p for visit. Chaplain Brent Greenberg pPaty samson DO - 08/22/2018 2:55 PM PDT Progress Notes by Paty Kline DO at 08/22/18 5792 Author: Paty Kline DO Service: Hospitalist Author Type: Physician Filed: 08/22/18 3091 Date of Service: 08/22/18 3495 Status: Addendum Building And Grounds Supervisor: Paty Kline DO (Physician) Related Notes: Original Note by Paty Kline DO (Physician) filed at 08/22/18 8048 [facility] Service: Hospitalist Progress Note Hospital Day: [...] May 2018 presented to emergency department of [facility] in [place] this morning and underwent right thoracentesis. Patient was sent home after the procedure. However patient became very short of breath and started havi ng pinkish frothy sputum. Patient also developed right-sided chest pain over area of thorac entesis. Hence she returned to emergency department of [facility]. Patient w as tachycardic and short of breath but was saturating well on room air. Chest x-ray showed pulmonary edema of right lung but left lung was normal as per ED physician." Patient was transferred to [facility] for monitoring as she will [...] 08/22/18932 Date of Service: 08/22/18928 Status: Signed Building And Grounds Supervisor: Jessica Martell RN (Registered Nurse) 08/22/18922 Discharge Planning Evaluation Admitting Diagnosis Non-cardiogenic pulmonary edema Readmission No Living Arrangements Alone Support Systems Friends/neighbors;Family members Type of Residence Private residence House type Apartment Bathrooms on 1st Floor 1-Full Independent with ADL's Yes Independent with Mobility Yes Home Care Services No Caregiver after Discharge No Mental Status Oriented Prior functional status independent Power of Sample Checker No Anticipated Discharge Plan Post Acute Care Needs None at this time Plan communicated to patient/family Yes Resources Financial concerns Comment (needs met but uses food bank and family/neighbors assist) Transportation issues No (friends assist w/transport to HD and appointments) Patient/Family concerns No Prescription Plan Yes Name of Pharmacy [facility] - [place], [place] Previous home health equipment No Vascular [...] and states she uses hemodialysis at [facility] on Mon, Wed, Fri but [...] 08/22/18435 Date of Service: 08/22/18433 Status: Signed Building And Grounds Supervisor: Jaymie Tafoya RN (Registered Nurse) Pt currently [...] 08/21/181831 Date of Service: 08/21/181828 Status: Signed Building And Grounds Supervisor: Luz Pablo RN (Registered Nurse) Complains of rib/upper abdomen pain. Medicated, pain improved. Ambulating in room. HD today , 2.7L off. HD in a.m. At 0600. End of shift review complete. Paty Godinez DO - 08/21/2018 7:24 AM PDT Progress Notes by Paty Kline DO at 08/21/18 0724 Author: Paty Kline DO Service: Hospitalist Author Type: Physician Filed: 08/21/18 4194 Date of Service: 08/21/18723 Status: Signed Building And Grounds Supervisor: Paty Kline DO (Physician) [facility] Service: Hospitalist Progress Note Hospital [...] May 2018 presented to emergency department of [facility] in [place] this morning and underwent right thoracentesis. Patient was sent home after the procedure. However patient became very short of breath and started havi ng pinkish frothy sputum. Patient also developed right-sided chest pain over area of thorac entesis. Hence she returned to emergency department of [facility]. Patient w as tachycardic and short of breath but was saturating well on room air. Chest x-ray showed pulmonary edema of right lung but left lung was normal as per ED physician." Patient was transferred to [facility] for monitoring as she will [...] Note by Anahy Springer RN at 08/21/18 4761 Author: Anahy Springer RN Service: (none) Author Type: Registered Nurse Filed: 08/21/18 4379 Date of Service: 08/21/18 8793 Status: Addendum Building And Grounds Supervisor: Anahy Springer RN (Registered Nurse) Related Notes: Original Note by Anahy Springer RN (Registered Nurse) filed at 08/21/18 9937 VSS. Pt c/o pain x2, pt medicated [...] 08/20/181901 Date of Service: 08/20/181901 Status: Signed Building And Grounds Supervisor: Kacy Moody RPH (Pharmacist) Clinical Pharmacy Note: [...] | | | | | | [place] [address] | | | | | | [phone] | | | | | | | [...] [place];[address] | | | | | | [facility];[place], [place] | | | | | | [address] | | | | + + + [...] LAB | | | | performed at [facility], [address] | | | | | | [facility], | | | | | | [place] [address] | | | | | |MACRO | | | | | |Testing performed at [facility], [facility] [place] [address] | | | | | | | [...] EXTERNAL | | | | performed at [facility], [address] | | LAB | | | | [address], | | | | | | [place] [address] | | | | + + + [...] EXTERNAL | | | | performed at [facility], [address] | | LAB | | | | [address], | | | | | | [place] [address] | | | | + + [...] | | | | performed at [facility], [address] | | | | | | [address], | | | | | | [place] [address] | | | | + + + [...] | performed at [facility] | | LAB | | | | [address];[place], [place] | | | | | | [address] | | | | + + + [...] | performed at [facility];[address] | | | | | | [facility];[place], [place] | | | | | | [address] | | | | + + + [...]
--- OUTSIDE RECORDS SUMMARY | ~2019-03-08 | XMS | Encounter Summary ---
Demographics + + + | Address | [address] | | | [place] [address] | + + + | Home Phone [...] | | | | | [place] [address] | | + + + + + | Thania Mallory | ECON | [address] | | | | | [place] [address] | | + + + + + | Deidra Weldon | ECON | [address] | | | | | [place] | | | | | [address] | | + + + + + Care Team Providers + +------+ + | Care Assistance Representative Name | Role | Phone [...] | | | [address] | [place] [address] | | | | | [place], | [place], [place] | | | | | [place] [address] | [address] | | | | | [phone] | [phone] | | | | | | | [...] [place] | | | | | | [address] | | | | | | [phone] | | | | | | | | +--------+ + + + + documented as of this encounter Visit Diagnoses Not on filedocumented in this encounter"
--- OUTSIDE RECORDS SUMMARY | ~2019-03-08 | XMS | Encounter Summary ---
Demographics + + + | Address | [address] | | | [place] [address] | + + + | Home Phone [...] | | | | | [place] [address] | | + + + + + | Thania Mallory | ECON | [address] | | | | | [place] [address] | | + + + + + | Deidra Weldon | ECON | [address] | | | | | [place] | | | | | [address] | | + + + + + Care Team Providers + +------+ + | Care Football Coach Name | Role | Phone | [...] pt's | | | | [address], | [place], [place] | support plan & | | | | [place] [address] | [address] | social changes) | | | | [phone] | | | +--------+ + + + [...] Denise | | | | | | [place], [place] | | | | | | [address] | | | | | | [phone] | | | | | | | | +--------+ + + + + documented as of this encounter Visit Diagnoses Not on filedocumented in this encounter"
--- OUTSIDE RECORDS SUMMARY | ~2019-03-08 | XMS | Encounter Summary ---
Demographics + + + | Address | [address] | | | [place] [address] | + + + | Home Phone [...] | Author | [facility] | | | and Josephana | + + + | Organization | [facility] [...] Providers + +------+ + | Care Architectural Project Manager Name | Role | Phone [...] stage renal | [address] | [address] [place] [address] | | | | | disease) | Shun Griffin | Jaciel Gotti | | | | | (HCC) | [address] | [address] | | | | | Anemia in | [place], [place] | [place], [place] | | | | | ESRD | [address] | [address] Phone: | | | | | (end-stage | Phone: | [phone] | | | | | renal | [phone] | Fax: | | | | | disease) | Fax: | [phone] | | | | | ([facility]) | [phone] | | | | | | Procedures | | | | | | | IN ESRD | | | | | | [...] | | [address] | [address] | (Primary Dx) | | | | [place], [place] | [place], [place] | | | | | [address] | [address] | | | | | [phone] | | | +--------+ + + + [...] to fall on the [place], IV? : [place] Fina Alonso MD, PhD documented in thi [...] [place] | | | | | | [place] [address] | | | | | | [phone] | | | | | | | | +--------+---------+ + + + documented as of this encounter Visit Diagnoses + + | Diagnosis | + + | ESRD (end stage renal disease) (HCC) - Primary End stage renal disease | + + documented in this encounter
--- OUTSIDE RECORDS SUMMARY | ~2019-03-08 | XMS | Encounter Summary ---
Demographics + + + | Address | [address] | | | [place] [address] | + + + | Home Phone [...] | | | | | [place] [address] | | + + + + + | Thania Mallory | ECON | [address] | | | | | [place] [address] | | + + + + + | Deidra Weldon | ECON | [address] | | | | | [place] | | | | | [address] | | + + + + + Care Team Providers + +------+ + | Care Skiagrapher Name | Role | Phone | + [...] | Nephrology at | MD Emanuel [address] [facility] | | | | | [place] | [facility] | | | | | [facility] | [place], [place] | | | | | [address] [facility] | [address] | | | | | Mailcode: DCH7 | [phone] | | | | | Alexander | | | | | | [place], [place] | | | | | | [address] | | | | | | [phone] | | | +--------+ + + + [...] [facility] | | | | | | [address] | | | | | | [phone] | | | | | | | | +--------+ + + + + documented as of this encounter Visit Diagnoses Not on filedocumented in this encounter"
--- OUTSIDE RECORDS SUMMARY | ~2019-03-08 | XMS | Encounter Summary ---
Demographics + + + | Address | [address] | | | [place] [address] | + + + | Home Phone [...] | | | | | [place] [address] | | + + + + + | Thania Mallory | ECON | [address] | | | | | [place] [address] | | + + + + + | Deidra Weldon | ECON | [address] | | | | | [place] | | | | | [address] | | + + + + + Care Team Providers + +------+ + | Care Eligibility Worker Name | Role | Phone | [...] update | | | | [address] [place], | [place], [place] | from pt's mom) | | | | [place] [address] | [address] | | | | | [phone] | | | +--------+ + + + [...] Denise | | | | | | [place] | | | | | | [address] | | | | | | [phone] | | | | | | | | +--------+ + + + + documented as of this encounter Visit Diagnoses Not on filedocumented in this encounter"
--- OUTSIDE RECORDS SUMMARY | ~2019-03-08 | XMS | Encounter Summary ---
Demographics + + + | Address | [address] | | | [place] [address] | + + + | Home Phone [...] | | | | | [place] [address] | | + + + + + | Thania Mallory | ECON | [address] | | | | | [place] [address] | | + + + + + | Deidra Weldon | ECON | [address] | | | | | [place] | | | | | [address] | | + + + + + Care Team Providers + +------+ + | Care Mill Hand Plate Mill Name | Role | Phone | [...] | | | | | [address] [place], | [place], [place] | | | | | [place] [address] | [address] | | | | | [phone] | | | +--------+ + + + [...] Denise | | | | | | [place], [place] | | | | | | [address] | | | | | | [phone] | | | | | | | [...] + + | [facility] - | [address] | [place] | [phone] | | [place] | | | | + + + + + documented in this encounter Visit Diagnoses Not on filedocumented in this encounter"
--- OUTSIDE RECORDS SUMMARY | ~2019-03-08 | XMS | Encounter Summary ---
Demographics + + + | Address | [address] | | | [place] [address] | + + + | Home Phone [...] | | | | | [place] [address] | | + + + + + | Thania Mallory | ECON | [address] | | | | | [place] [address] | | + + + + + | Deidra Weldon | ECON | [address] | | | | | [place] | | | | | [address] | | + + + + + Care Team Providers + +------+ + | Care Sexual Assault Social Worker Name | Role | Phone [...] | | | MD [address] | [facility] | | | | | | Keven | Mailcode: | | | | | | Hospital | [facility] | | | | | | [address] | [place] | | | | | | [address] | [place], [place] | | | | | | [place] | [address] | | | | | | [place] | Phone: | | | | | | [address] | [phone] | | | | | | Phone: | | | | | | | [phone] | | | | | | | Fax: | | | | | | | [phone] | | +--------+--------+ + + + + Encounter Details +--------+---------+ + + + | Date | Type | Department | Care Team | Description | +--------+---------+ + + + | 01/20/ | Office | Specialty Clinics | Sudhakar Joy | HSP | | 2014 | Visit | at [facility] [address] MD [address] [facility] | (David | | | | [place] Mailcode: | [address] [facility] [facility] [facility] [address] | purpura) nephritis | | | | [facility] [place] | [place], [place] | (Primary Dx); | | | | [place], [place] | [address] | Allergic purpura- | | | | [address] | [phone] | MEDICARE 3436; | | | | [phone] | | Anemia of chronic | | [...] [address] Mail code [facility] [place], [place] [address] documented in this encounter Plan of Treatment +--------+ + + + + | Date | Type | Specialty | Care Team | Description | +--------+ + + + + | 05/04/ | Hospital | Adult Acute Care | El Starr MD | | | 2022 | Encounter | | [address] | | | | | | [place], [place] | | | | | | [address] | | | | | | [phone] | | | | | | | [...]
[~2019-03-08 02:36] MED LIST changes: +PROMETHAZINE HC25 M1 PO
--- OUTSIDE RECORDS SUMMARY | 2019-03-08 02:38 | XMS ---
PreManage Notification: CONOR LOUISE Security Signal Constructor Events No recent Security Events currently on file CRITERIA MET - 6 ED Visits in 6 Months - [facility] - Has Care Guidelines - PDMP - [facility] - 2 Visits in 30 Days CARE PROVIDERS TIEN NICHOLSON Internal Medicine 05/28/2018-Current PHONE: Unknown Karena has no Care Guidelines for this patient. Care History Medical/Surgical 11/29/2018 [facility] ED CASE MANAGEMENT CONSULT RECEIVED- CHW PROVIDED TO BASIL- W OF [facility] FOR HIGH RISK FOLLOW UP. 11/07/2018 [facility] Dr Nicholson has not seen Pt since 06/08/2018. 07/12/2018 \R\ Pt canceled appt w/ Dr Nicholson 07/18/2018 \R\ Pt LWOS in [facility] 08/18/2018 \R\ Pt canceled appt w/ Dr Nicholson 09/12/19. \R\ Pt was N/S for appt w/ Dr Nicholson 05/28/2018 [facility] - PATIENT HAS AN APT WITH PCP DR NICHOLSON ON 09/11/18. - PATIENT LICENSE REGISTRATION EXAMINER- DR HINSON- [phone] - Patient is currently established with [facility]. If patient is seen in the ED during business hours. Please contact CHWs at [facility]. Care Recommendation: This patient has had 5 [...] care. E.D. VISIT COUNT (12 MO.) 7 [facility] 19 [facility] TOTAL 26 NOTE: Visits indicate total known visits. ED/C VISIT TRACKING (12 MO.) 03/08/2019 02:36 [facility] [place] TYPE: Emergency COMPLAINT: - SOB 02/17/2019 23:25 [facility] [place] TYPE: Emergency COMPLAINT: - SOB/RASH DIAGNOSES: - Chronic kidney disease, unspecified - Allergy status to oth drug/meds/biol subst status - Allergy status to narcotic agent status - Radiographic dye allergy status - Other nursing home (current) drug therapy - Cough - Fluid overload, unspecified 01/23/2019 22:10 [facility] TYPE: Emergency DIAGNOSES: - Shortness of breath - Shortness of Breath - Dependence on renal dialysis - End stage renal disease - Pleural effusion, not elsewhere classified 01/07/2019 01:31 [facility] TYPE: Emergency DIAGNOSES: - Dependence on renal dialysis - Hyperkalemia - End stage renal disease - Acute respiratory distress - Hypertension - High Potassium 01/06/2019 19:30 [facility] [place] TYPE: Emergency COMPLAINT: - CHEST PAIN, SOB DIAGNOSES: - Allergy status to narcotic agent status - Other nursing home (current) drug therapy - Hyperkalemia - Dyspnea, [...] Pleural effusion, not elsewhere classified 12/10/2018 22:01 [facility] TYPE: Emergency DIAGNOSES: - Personal history of [...] - Dilated cardiomyopathy - Chest Pain - Oth personal risk factors, not elsewhere [...] Personal history of nicotine dependence - Other long term care pharmacist (current) drug therapy 11/28/2018 09:12 [facility] [place] TYPE: Emergency COMPLAINT: - SOB, BLOOD PRESSURE PROBLEM DIAGNOSES: - Allergy status to narcotic agent status - Allergy status to oth drug/meds/biol subst status - Chronic kidney disease, unspecified - Radiographic dye allergy status - Shortness of breath - Pleural effusion, not elsewhere classified - Other nursing home (current) drug therapy - Personal history of [...] COMPLAINT: - CHEST PAIN DIAGNOSES: - Other nursing home (current) drug therapy [...] to oth drug/meds/biol subst status 10/17/2018 03:19 [facility] TYPE: Emergency DIAGNOSES: - Dependence on renal [...] - Dependence on renal dialysis - Other nursing home (current) drug therapy - 1 Hypertensive chronic kidney disease w stg 1-4/uns dylan kdny 08/20/2018 13:08 [facility] [place] TYPE: Emergency COMPLAINT: - CHEST PAIN, SOB DIAGNOSES: - Dependence on renal dialysis - Chronic kidney disease, unspecified - Allergy status to oth drug/meds/biol subst status - Chronic pulmonary edema - Other long term care pharmacist (current) drug therapy - Allergy status to [...] dialysis - Chest pain, unspecified 08/13/2018 00:00 [facility] TYPE: Emergency 07/18/2018 22:44 [facility] TYPE: Emergency DIAGNOSES: - Hypoxemia [...] PAIN DIAGNOSES: - Other chest pain - 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 [place] TYPE: Emergency COMPLAINT: - SOB DIAGNOSES: - Shortness of breath - Radiographic dye allergy status - Unspecified asthma, uncomplicated - Hyperkalemia - Allergy status to narcotic agent status - Dependence on renal dialysis - Fluid overload, unspecified - Other long term care pharmacist (current) drug therapy - Allergy status to oth drug/meds/biol subst status - Chronic kidney disease, unspecified Plus 6 More Visits INPATIENT VISIT TRACKING (12 MO.) 01/23/2019 22:10 [facility] TYPE: Internal Medicine DIAGNOSES: - Pleural effusion, not elsewhere classified - Oth disorders of plasma-protein metabolism, NEC - End stage renal disease - Shortness of breath - Patient's noncompliance with renal dialysis - Other disorders of phosphorus metabolism - Acute respiratory distress - Patient's noncompliance w oth medical treatment and regimen - Anemia in chronic kidney disease - [facility] personal risk factors, not elsewhere classified - Dependence on renal dialysis 12/10/2018 22:01 [facility] TYPE: Inpatient DIAGNOSES: - Other ascites - Acute respiratory failure with hypoxia - Lobar pneumonia, unspecified organism - Other disorders of phosphorus metabolism - Nonrheumatic tricuspid (valve) insufficiency - Personal history of other diseases of the digestive system - [facility]oxemia [facility] b[facility]/bld-form org/immun mechnsm - Patient's noncompliance w oth medical treatment and regimen - Awaiting organ transplant status - Hyperkalemia - [facility] personal risk factors, not elsewhere classified - [...] hypoxia - Chronic pulmonary edema [facility]2018 [facility] [place] [facility] DIAGNOSES: - Acute respiratory failure with hypoxia - Pleural effusion, not elsewhere classified - Left ventricular failure, unspecified - Anemia in chronic kidney disease - Pulmonary hypertension, unspecified - Pericardial effusion (noninflammatory) - Dependence on renal dialysis - Chronic right heart failure - Patient's noncompliance w [facility] medical treatment and regimen - Chronic combined systolic and diastolic hrt fail - [facility] personal risk factors, not elsewhere classified - Abnormal levels of other serum enzymes - End stage renal disease - Hyperkalemia - Dilated cardiomyopathy [facility]2018 [facility] [place] [facility] DIAGNOSES: - Shortness of breath - Pleural effusion, not elsewhere classified - End stage renal disease - Dependence on renal dialysis 08/20/2018 17:21 [facility] [place] [facility]: [facility] DIAGNOSES: - Pleural Effusion - Chronic pulmonary edema 07/18/2018 22:44 [facility] [place] [facility]: General [facility] DIAGNOSES: - Hypoxemia - End stage renal disease - Pulmonary hypertension, unspecified - Chronic right heart failure - Personal history of other diseases of urinary system - Fever, unspecified - Pleural effusion, not elsewhere classified - Anemia in chronic kidney disease - Dependence on renal dialysis 05/26/2018 11:57 [facility] DIAGNOSES: - Acute respiratory [...] Oth personal risk factors, not elsewhere classified [email or web address]
== END 2019-03-08 04:45 | disposition home or self-care (01) ==
LOC: ED 02:36
DX: I50.9 Heart failure, unspecified (principal); N18.6 End stage renal disease; Z99.2 Dependence on renal dialysis; E87.5 Hyperkalemia; Z91.041 Radiographic dye allergy status; Z88.5 Allergy status to narcotic agent; Z88.8 Allergy status to other drugs, medicaments and biological substances; Z79.899 Other long term (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
CPT/HCPCS: 71046; 80053; 85025; 99285-25

== ENCOUNTER 2019-03-12 22:46 | Emergency (ER) | payer MEDICARE, OTHER ==
[~2019-03-12] VITALS: Ht 170.2 cm; Wt 69.8 kg
--- OUTSIDE RECORDS SUMMARY | ~2019-03-12 | XMS | Encounter Summary ---
Demographics + + + | Address | [address] | | | [place] [address] | + + + | Home Phone [...] + + + | Author | [facility] | | | and Josephana | + + + | Organization | [facility] | | | and Josephana [...] + +------+ + | Care Real Estate Agency Principal Name | Role | Phone | + +------+ + PCP | Unavailable | + +------+ + Reason for Referral Evaluate & Treat (Routine) +--------+ + + + + + | Status | Reason | Specialty | Diagnoses / | Referred By | Referred To | | | | | Procedures | Contact | Contact | +--------+ + + + + + | Closed | Specialty | Interventiona | Diagnoses | Ibarra, | Kasthuri, | | | Services | l Radiology | Dialysis AV | Daniela Pool, | MD Darryn | | | Required | | fistula | [address] | | | | | malfunction, | [address] | [address] | | | | | initial | [address] [place] | [place], | | | | | encounter | [place], [place] | [place] [address] | | | | | ([facility]) | [address] | Phone: | | | | | | Phone: | [phone] | | | | | | [phone] | Fax: | | | | | | Fax: | [phone] | | | | | | [phone] | | +--------+ + + + + + Diagnostic/Screening (Routine) +--------+--------+ + + + + | Status | Reason | Specialty | Diagnoses / | Referred By | Referred To | | | | | Procedures | Contact | Contact | +--------+--------+ + + + + | Closed | | Radiology | Diagnoses | Ibarra, | [facility] | | | | | Dialysis AV | Daniela Pool, | Intra Op [address] | | | | | fistula | MD [address] | | | | | malfunction, | [address] | [place], | | | | | initial | [address] [place] | [place] [address] | | | | | encounter | [place], [place] | Phone: | | | | | ([facility]) | [address] | [phone] | | | | | Procedures | Phone: | Fax: | | | | | IR Procedure | [phone] | [phone] | | | | | [address] | Fax: | | | | | | NEEDLE/CATH | [phone] | | | | | | A-V DIALYSIS | | | | | | | SHUNT,1ST | | | | | | | ACCESS W/ | | | | | | | RAD EVAL | | | +--------+--------+ + + + + Encounter Details +--------+ + + + + | Date | Type | Department | Care Team | Description | +--------+ + + + + | 03/07/ | Orders Only | [facility] [place] | Daniela Ibarra W, | Dialysis AV fistula | | 2015 | | NEPHROLOGY [address] | MD [address] | malfunction, initial | | | | [address] | [address] [place] | encounter (HCC) | | | | [place], [place] | [place] [address] | (Primary Dx) | | | | [address] | [phone] | | | | | [phone] | | | +--------+ + + + [...] + documented as of this encounter Progress Merly Kaplan RN - 03/07/2014 10:05 AM PSTOp note, referral, and IR procedure order fax ed to Dr. Whaley's office. 10:0 6 AM PSTdocumented in this encounter Plan of Treatment +--------+---------+ + + + | Date | Type | Specialty | Care Team | Description | +--------+---------+ + + + | 04/18/ | Office | Pulmonology | Denny Alexander | | | 2019 | Visit | | Deny Briggs MD [address] | | | | | | [address] | | | | | | [place] [address] | | | | | | [phone] | | | | | | | | +--------+---------+ + + + + +---------+--------+ + + | Name | Type | Priori | Associated Diagnoses | Order Schedule | | | | ty | | | + +---------+--------+ + + | IR Procedure | Imaging | Routin | Dialysis AV | Expected: | | | | e | fistula malfunction, | 03/07/2014, Expires: | | | | | initial encounter | 03/07/2015 | | | | | (HCC) | | + +---------+--------+ + + + + +--------+ + + | Name | Type | Priori | Associated Diagnoses | Order Schedule | | | | ty | | | + + +--------+ + + | Ambulatory referral | Outpatient | Routin | Dialysis AV | Ordered: 03/07/2014 | | to Interventional | Referral | e | fistula malfunction, | | | Radiology | | | initial encounter | | | | | | (HCC) | | + + +--------+ + + documented as of this encounter Visit Diagnoses + + | Diagnosis | + + | Dialysis AV fistula malfunction, initial encounter ([facility]) - Primary | + + documented in this encounter"
--- OUTSIDE RECORDS SUMMARY | ~2019-03-12 | XMS | Encounter Summary ---
Demographics + + + | Address | [address] | | | [place] [address] | + + + | Home Phone | | + + + | Preferred Language | Unknown | + + + | Marital Status | Single | + + + | Voodoo Affiliation | Unknown | + + + | Race | Unknown | + + + | Ethnic Group | Unknown | + + + Author + + + | Author | [facility] | | | and Josephana | + + + | Organization | [facility] | | | and Josephana | [...] Team Providers + +------+ + | Care Sales Commissions Analyst Name | Role | Phone | + +------+ + PCP | Unavailable | + +------+ + Encounter Details +--------+ + + + + | Date | Type | Department | Care Team | Description | +--------+ + + + + | 05/17/ | Hospital | [facility] GENERIC OP | Sudhakar Joy | | | 2010 | Encounter | JOY | MD Emanuel [address] | | | | | [address]PART[address] | [facility] | | | | [address] | [place], [place] | | | | | [place], [place] | [address] | | | | | [address] | [phone] | | | | | [phone] | | | +--------+ + + + [...] Pulmonology | Denny Alexander | | | 2020 | Visit | | Deny Briggs MD [address] | | | | | | [address] | | | | | | [place] [address] | | | | | | [phone] | | | | | | | | +--------+---------+ + + + documented as of this encounter Visit Diagnoses Not on filedocumented in this encounter"
--- OUTSIDE RECORDS SUMMARY | ~2019-03-12 | XMS | Encounter Summary ---
Demographics + + + | Address | [address] | | | [place] [address] | + + + | Home Phone [...] + + | Author | [facility] | | | and Josephana | + + + | Organization | [facility] | | | and Josephana | + [...] Team Providers + +------+ + | Care Link Wire Fabric Machine Tender Name | Role | Phone [...] Closed | | Nephrology | Diagnoses | Rufino, | Conrado, | | | | | ESRD (end | Sudhakar Castellanos, | Jorje Obrien DO | | | | | stage renal | [address] | [address] [place] [address] | | | | | disease) | Shun Griffin | [address] | | | | | ([facility]) | [address] | [address] [place] | | | | | Anemia in | [place], [place] | [place] | | | | | ESRD | [address] | [address] Phone: | | | | | (end-stage | Phone: | [phone] | | | | | renal | [phone] | Fax: | | | | | disease) | Fax: | [phone] | | | | | ([facility]) | [phone] | | | | | | Procedures | | | | | | | [place] OFFICE | | | | | | | OUTPATIENT | | | | | | | VISIT 25 | | | | | | | MINUTES | | | +--------+--------+ + + + + Encounter Details +--------+ + + + + | Date | Type | Department | Care Team | Description | +--------+ + + + + | 06/27/ | Off-Site | [facility] | Jorje Camp | ESRD (end stage | | 2017 | Visit | NEPHROLOGY [address] | M, DO [address] | renal disease) ([facility]) | | | | [address] | [place], [address] | (Primary Dx) | | | | [place], [place] | [place], [place] | | | | | [address] | [address] | | | | | [phone] | | | +--------+ + + + [...] + + + | Blood Pressure | 111/60 | 06/27/2016 5:29 PM | | | | | PDT | | + + + + + | Pulse | - | - | | + + + + + | Temperature | 36.3 C (97.3 F) | 06/27/2016 5:29 PM | | | | | PDT [...] encounter Progress Notes Jorje Camp DO - 06/27/2016 10:00 AM PDT Subjective: DIALYSIS NOTE Patient ID: Dara Weldon is a 21 y.o. female. 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 She also has anemia secondary to CKD, SHPTH, centripetal obesity. Unfortunately, she is still plagued by a pattern of repeated absenteeism from all of her pr escribed 3 txs weekly. Also, her hyperphosphatemia continues to worsen. I have offered her arrangements via the Renal GOLF SALES MANAGER to obtain some meaningful counseling, but she is A&O x3, and declines. Outpatient Prescriptions Marked as Taking for the 06/27/16 encounter (Off-Site Visit) with Camille Camp DO Medication Sig Dispense Refill albuterol 90 mcg/puff inhaler Inhale 2 puffs into the lungs every 6 hours as needed for Wheezing. 1 Inhaler 11 cinacalcet (SENSIPAR) 90 MG tablet Take 1 tablet by mouth Daily (with dinner). 90 table t 3 clopidogrel (PLAVIX) 75 mg tablet Take 1 tablet by mouth Daily. 30 tablet 11 doxercalciferol (HECTOROL) 2 mcg/mL injection Inject 1 mcg into the vein Three times a week. Per dialysis clinic protocol iron sucrose (VENOFER) 20 mg/mL injection Inject 2.5 mLs into the vein Once a week. norethindrone (MICRONOR) 0.35 MG tablet Take 1 tablet by mouth Daily. 27-0.8 mg multivitamin tablet Take 1 tablet by mouth Daily. sevelamer carbonate (RENVELA) 800 mg tablet Take 4 tablets by mouth with meals and 3 ta blets with snacks 630 tablet 4 Allergies Allergen Reactions Adhesive & Tape Rash Certain tapes Morphine Itching and Rash Objective: BP 111/60 | Temp 36.3 C (97.3 F) EDW 97.5 kg Physical Exam Heart: Regular rate and rhythm with no S3, S4, murmur or rub. Lungs: CTA bilaterally. No rales or wheezes. Abdomen: Soft, obese, nontender, normoactive bowel sounds.. Extremities: No clubbing, cyanosis, or edema. LAB: BUN 81, Cr 13.9, K+ 5.5, HCO3 19, Ca++ 9.4, PO4 10.1, PTH 1013, Alb 3.7, Hb 10, TSat. = 40 %, Ferritin 650, eKT/V = 1.50 . Assessment: 1. ESRD-- her current Rx appears stable by the most recent KT/V. 2. Hypertension-- good control, although, she appears to be chronically under dialyzed. S he is equally bothered by high interdialytic weight gains. 3. SHPTH-- I reviewed with Dara that her chronic hyperphosphatemia can be associated wit h soft tissue gangrene, increased CV mortality, and significant risk of vascular disease. She is A&O x 3 during this discussion. I have offered a PTH ectomy to decrease her lif etime pill burden, while obtaining control but she declines. 4. Nutrition-- fairly good. 6. Anemia-- Will increase the EPO by 25%, and recheck the Hb in one week, to target the Hb 10-11 g/dl. 7. Centripetal obesity--see above. 8. 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 9. Transplantation-- she appears to lack the maturity level or insight into her CKD and gl obal health to be successful at this? She would be at significant risk for allograft loss, in her current frame of mind, I am afraid. Plan: 1. I reviewed with her features of a < 1000 cc fluid, < 60 mEq K+ , high protein diet. 2. I think that Dara would benefit from structured counseling or a formal Psychiatric ev aluation. 3. Will increase her EPO by 25% as above. 4. Will recheck her in 2 weeks. : [place] Fina Joy M.D., Pediatric Nephrology, [facility] documented in t his encounter Plan of Treatment +--------+---------+ + + + | Date | Type | Specialty | Care Team | Description | +--------+---------+ + + + | 04/18/ | Office | Pulmonology | Denny Alexander | | | 2019 | Visit | | Deny Briggs MD [address] | | | | | | [address] | | | | | | [place] [address] | | | | | | [phone] | | | | | | | | +--------+---------+ + + + documented as of this encounter Visit Diagnoses + + | Diagnosis | + + | ESRD (end stage renal disease) (HCC) - Primary End stage renal disease | + + documented in this encounter"
--- OUTSIDE RECORDS SUMMARY | ~2019-03-12 | XMS | Encounter Summary ---
Demographics + + + | Address | [address] | | | [place] [address] | + + + | Home Phone | | + + + | Preferred Language | Unknown | + + + | Marital Status | Single | + + + | Confucianism Affiliation | Unknown | + + + | Race | Unknown | + + + | Ethnic Group | Unknown | + + + Author + + + | Author | [facility] | | | and Josephana | + + + | Organization | [facility] | | | and [...] Providers + +------+ + | Care Motorcycle Repairer Name | Role | Phone | + +------+ + | Jonathan Alonso MD | PCP | | + +------+ + Encounter Details +--------+ + + + + | Date | Type | Department | Care Team | Description | +--------+ + + + + | 06/12/ | Orders Only | [facility] | Jonathan Alonso | | | 2019 | | CONVERSION [address] | MD [address] | | | | | [address] | [place] | | | | | [place] | [place] [address] | | | | | [address] | [phone] | | | | | [phone] | | | +--------+ + + + [...] [address] | | | | | | [place] [address] | | | | | | [phone] | | | | | | | | +--------+---------+ + + + documented as of this encounter Procedures + +--------+ + + + | Procedure Name | Priori | Date/Time | Associated Diagnosis | Comments | | | ty | | | | + +--------+ + + + | ECHO INTERPRETATION | Routin | 06/12/2018 | | Results for this | | OF OUTSIDE FILMS | e | 2:52 PM | | procedure are in the | | | | PDT | | results section. | + +--------+ + + + documented in this encounter Results ECHO Interpretation of Outside Films (06/12/2018 2:52 PM PDT) + + | Specimen | + + | | + + + + + | Impressions | Performed At | + + + | 1. Overall left ventricular systolic function is moderate-severely | | | impaired with, an EF between 30 - 35 %. 2. Restrictive LV diastolic | | | filling pattern, consistent with elevated LA pressure and severe | | | dysfunction (grade III). 3. There is paradoxical/dysynergic septal | | | motion consistent with right ventricular volume overload and/or | | | elevated right ventricular end-diastolic pressure. 4. Moderate mitral | | | regurgitation is present. 5. Severe tricuspid regurgitation present. | | | 6. There is severe pulmonary hypertension. 7. Bowing of interatrial | | | septum to the left, consistent with elevated right side pressures. | | + + + + + + | Narrative | Performed At | + + + | Patient Name: DARA WELDON Date of : 1995 | | | Performing Physician: René Noonan MD | | | | | | INDICATIONS Severe Dyspnea, ESRD, dialysis yesterday | | | CONCLUSIONS 1. Overall left ventricular systolic | | | function is moderate-severely impaired with, an EF between 30 - 35 %. | | | 2. Restrictive LV diastolic filling pattern, consistent with elevated | | | LA pressure and severe dysfunction (grade III). 3. There is | | | paradoxical/dysynergic septal motion consistent with right ventricular | | | volume overload and/or elevated right ventricular end-diastolic | | | pressure. 4. Moderate mitral regurgitation is present. 5. Severe | | | tricuspid regurgitation present. 6. There is severe pulmonary | | | hypertension. 7. Bowing of interatrial septum to the left, consistent | | | with elevated right side pressures. FINDINGS -------- ECG | | | rhythm: Sinus rhythm. Study: A 2-dimensional transthoracic | | | echocardiogram with m-mode, spectral and color flow Doppler was | | | perfomed. Study: This was a technically adequate study. Left | | | Ventricle: Overall left ventricular systolic function is | | | moderate-severely impaired with, an EF between 30 - 35 %. Left | | | Ventricle: The left ventricle cavity size is normal. Left Ventricle: | | | There is moderate concentric left ventricular hypertrophy. Left | | | Ventricle: There is moderate global hypokinesis of LV contractility. | | | Left Ventricle: Restrictive LV diastolic filling pattern, consistent | | | with elevated LA pressure and severe dysfunction (grade III). Left | | | Ventricle: There is paradoxical/dysynergic septal motion consistent | | | with right ventricular volume overload and/or elevated right | | | ventricular end-diastolic pressure. Right Ventricle: The right | | | ventricle is moderately enlarged. Left Atrium: The left atrium is | | | mildly enlarged. Right Atrium: The right atrium is moderately | | | enlarged. Aortic Valve: The aortic valve is trileaflet. Aortic | | | Valve: There is mild aortic regurgitation. Aortic Valve: There is no | | | evidence of aortic stenosis. Mitral Valve: Mitral valve is mildly | | | thickened. Mitral Valve: Moderate mitral regurgitation is present | | | Mitral Valve: , predominately a posteriorly directed jet. Tricuspid | | | Valve: The tricuspid valve appears structurally normal. Tricuspid | | | Valve: Severe tricuspid regurgitation present. Tricuspid Valve: The | | | right ventricular systolic pressure (pulmonary artery systolic | | | pressure), as measured by Doppler, is 67.65mmHg. Tricuspid Valve: | | | There is severe pulmonary hypertension. Pulmonic Valve: Pulmonic | | | valve appears structurally normal. Pulmonic Valve: Mild pulmonic | | | regurgitation. Pericardium: There is a moderate pericardial effusion | | | is located near the right atrium. Pericardium: There is no evidence | | | of cardiac tamponade. IVC/Hepatic Veins: The IVC is normal size | | | (1.5-2.5cm) and collapses <50% with sniff, consistent with central | | | venous pressures of 10-15mmHg. Pulmonary Veins: The flow patterns, | | | measured by Doppler, indicate systolic blunting. Septum: Bowing of | | | interatrial septum to the left, consistent with elevated right side | | | pressures. MEASUREMENTS IVC: 2.62 cm LA Major: | | | 4.62 cm EDV(Teich): 109.26 ml IVSd: 1.12 cm LVIDd: | | | 4.83 cm LVPWd: 1.29 cm LVOT Diam: 1.96 cm %FS: 15.22 % | | | EF(Teich): 32.18 % ESV(Teich): 74.10 ml LVIDs: 4.09 cm | | | SV(Teich): 35.16 ml RA Major: 4.91 cm RV Major: 8.03 cm RV | | | Minor: 4.32 cm RVIDd: 4.05 cm RV Minor: 3.75 cm LVEF MOD | | | A2C: 38.39 % SV MOD A2C: 68.28 ml LVEF MOD A4C: 31.07 % SV | | | MOD A4C: 50.52 ml EF Biplane: 34.63 % LVEDV MOD BP: 167.14 | | | ml LVESV MOD BP: 109.26 ml LVEDV MOD A2C: 177.83 ml LVLd | | | A2C: 9.28 cm LVEDV MOD A4C: 162.56 ml LVLd A4C: 9.05 cm | | | LVESV MOD A2C: 109.55 ml LVLs A2C: 8.39 cm LVESV MOD A4C: | | | 112.04 ml LVLs A4C: 8.20 cm LAESV(A-L): 56.58 ml LAESV Index | | | (A-L): 31.60 ml/m2 LAAs A2C: 18.56 cm2 LAESV A-L A2C: 58.49 | | | ml LAESV MOD A2C: 54.57 ml LALs A2C: 5.00 cm LAAs A4C: | | | 17.96 cm2 LAESV A-L A4C: 52.99 ml LAESV MOD A4C: 44.93 ml | | | LALs A4C: 5.18 cm LAESV(MOD BP): 49.83 ml RAAs: 18.33 cm2 | | | RAESV A-L: 57.01 ml RAESV MOD: 56.24 ml RALs: 5.02 cm | | | TAPSE: 1.98 cm AV Env.Ti: 227.35 ms AV maxP.22 mmHg | | | AV meanP.25 mmHg AV Vmax: 1.59 m/s AV Vmean: 1.06 m/s | | | AV VTI: 24.30 cm TIMA Vmax: 2.68 cm2 TIMA (VTI): 2.73 cm2 | | | AVAI Vmax: 0.00 cm2/m2 AVAI (VTI): 0.00 cm2/m2 LVOT Env.Ti: | | | 210.72 ms LVOT maxP.99 mmHg LVOT meanP.87 mmHg LVSI | | | Dopp: 37.17 ml/m2 LVSV Dopp: 66.54 ml LVOT Vmax: 1.41 m/s | | | LVOT Vmean: 1.03 m/s LVOT VTI: 21.88 cm MV A Shahid: 0.39 m/s | | | MV Dec [place]: 9.46 m/s2 MV DecT: 106.01 ms MV E Shahid: 1.00 | | | m/s MV E/A Ratio: 2.54 E/E' Sept: 23.82 E' Lat: 0.08 m/s | | | E' Sept: 0.04 m/s RAP: 15 mmHg RV S': 0.11 m/s RVSP: | | | 67.64 mmHg TR maxP.64 mmHg TR Vmax: 3.61 m/s | | | [employer] Tung[employer] Arc: Authenticated by: René Noonan MD Report Date/Time: | | | -- [id number]:25 | | + + + + + | Procedure Note | + + | Sonido Steele Conversion - 10/25/2018 1:43 PM PDT Patient Name: Anders WELDON of | | : 1995 Performing Physician: René Noonan | | INDICATIONS S | | evere Dyspnea, ESRD, dialysis yesterday CONCLUSIONS 1. Overall left | | ventricular systolic function is moderate-severely impaired with, an EF between 30 - 35 | | %.2. Restrictive LV diastolic filling pattern, consistent with elevated LA pressure and | | severe dysfunction (grade III).3. There is paradoxical/dysynergic septal motion | | consistent with right ventricular volume overload and/or elevated right ventricular | | end-diastolic pressure.4. Moderate mitral regurgitation is present.5. Severe tricuspid | | regurgitation present.6. There is severe pulmonary hypertension.7. Bowing of interatrial | | septum to the left, consistent with elevated right side pressures. FINDINGS--------ECG | | rhythm: Sinus rhythm.Study: A 2-dimensional transthoracic echocardiogram with m-mode, | | spectral and color flow Doppler was perfomed.Study: This was a technically adequate | | study.Left Ventricle: Overall left ventricular systolic function is moderate-severely | | impaired with, an EF between 30 - 35 %.Left Ventricle: The left ventricle cavity size is | | normal.Left Ventricle: There is moderate concentric left ventricular hypertrophy.Left | | Ventricle: There is moderate global hypokinesis of LV contractility.Left Ventricle: | | Restrictive LV diastolic filling pattern, consistent with elevated LA pressure and | | severe dysfunction (grade III).Left Ventricle: There is paradoxical/dysynergic septal | | motion consistent with right ventricular volume overload and/or elevated right | | ventricular end-diastolic pressure.Right Ventricle: The right ventricle is moderately | | enlarged.Left Atrium: The left atrium is mildly enlarged.Right Atrium: The right atrium | | is moderately enlarged.Aortic Valve: The aortic valve is trileaflet.Aortic Valve: There | | is mild aortic regurgitation.Aortic Valve: There is no evidence of aortic | | stenosis.Mitral Valve: Mitral valve is mildly thickened.Mitral Valve: Moderate mitral | | regurgitation is presentMitral Valve: , predominately a posteriorly directed | | jet.Tricuspid Valve: The tricuspid valve appears structurally normal.Tricuspid Valve: | | Severe tricuspid regurgitation present.Tricuspid Valve: The right ventricular systolic | | pressure (pulmonary artery systolic pressure), as measured by Doppler, is | | 67.65mmHg.Tricuspid Valve: There is severe pulmonary hypertension.Pulmonic Valve: | | Pulmonic valve appears structurally normal.Pulmonic Valve: Mild pulmonic | | regurgitation.Pericardium: There is a moderate pericardial effusion is located near the | | right atrium.Pericardium: There is no evidence of cardiac tamponade.IVC/Hepatic Veins: | | The IVC is normal size (1.5-2.5cm) and collapses <50% with sniff, consistent with | | central venous pressures of 10-15mmHg.Pulmonary Veins: The flow patterns, measured by | | Doppler, indicate systolic blunting.Septum: Bowing of interatrial septum to the left, | | consistent with elevated right side pressures. MEASUREMENTS IVC: 2.62 cmLA | | Major: 4.62 cmEDV(Teich): 109.26 mlIVSd: 1.12 cmLVIDd: 4.83 cmLVPWd: 1.29 | | cmLVOT Diam: 1.96 cm%FS: 15.22 %EF(Teich): 32.18 %ESV(Teich): 74.10 mlLVIDs: | | 4.09 cmSV(Teich): 35.16 mlRA Major: 4.91 cmRV Major: 8.03 cmRV Minor: 4.32 | | cmRVIDd: 4.05 cmRV Minor: 3.75 cmLVEF MOD A2C: 38.39 %SV MOD A2C: 68.28 mlLVEF | | MOD A4C: 31.07 %SV MOD A4C: 50.52 mlEF Biplane: 34.63 %LVEDV MOD BP: 167.14 | | mlLVESV MOD BP: 109.26 mlLVEDV MOD A2C: 177.83 mlLVLd A2C: 9.28 cmLVEDV MOD A4C: | | 162.56 mlLVLd A4C: 9.05 cmLVESV MOD A2C: 109.55 mlLVLs A2C: 8.39 cmLVESV MOD A4C: | | 112.04 mlLVLs A4C: 8.20 cmLAESV(A-L): 56.58 mlLAESV Index (A-L): 31.60 | | ml/m2LAAs A2C: 18.56 [id number] A-L A2C: 58.49 mlLAESV MOD A2C: 54.57 mlLALs A2C: | | 5.00 cmLAAs A4C: 17.96 [id number] A-L A4C: 52.99 mlLAESV MOD A4C: 44.93 mlLALs A4C: | | 5.18 cmLAESV(MOD BP): 49.83 mlRAAs: 18.33 [id number] A-L: 57.01 mlRAESV MOD: | | 56.24 mlRALs: 5.02 cmTAPSE: 1.98 cmAV Env.Ti: 227.35 msAV maxP.22 mmHgAV | | meanP.25 mmHgAV Vmax: 1.59 m/Elizabeth Vmean: 1.06 m/Elizabeth VTI: 24.30 cmAVA Vmax: | | 2.68 cm2AVA (VTI): 2.73 [id number] Vmax: 0.00 cm2/m2AVAI (VTI): 0.00 cm2/m2LVOT | | Env.Ti: 210.72 msLVOT maxP.99 mmHgLVOT meanP.87 mmHgLVSI Dopp: 37.17 | | ml/m2LVSV Dopp: 66.54 mlLVOT Vmax: 1.41 m/sLVOT Vmean: 1.03 m/sLVOT VTI: 21.88 | | cmMV A Shahid: 0.39 m/sMV Dec [place]: 9.46 m/s2MV DecT: 106.01 msMV E Shahid: 1.00 | | m/sMV E/A Ratio: 2.54E/E' Sept: 23.82E' Lat: 0.08 m/sE' Sept: 0.04 m/sRAP: 15 | | mmHgRV S': 0.11 m/sRVSP: 67.64 mmHgTR maxP.64 mmHgTR Vmax: 3.61 m/s | | [employer]ung[employer] Arc:Authenticated by: René Noonan MDReport Date/Time: -- [id number]:15:25 | | IMPRESSION: 1. Overall left ventricular systolic function is moderate-severely impaired | | with, an EF between 30 - 35 %.2. Restrictive LV diastolic filling pattern, consistent | | with elevated LA pressure and severe dysfunction (grade III).3. There is | | paradoxical/dysynergic septal motion consistent with right ventricular volume overload | | and/or elevated right ventricular end-diastolic pressure.4. Moderate mitral | | regurgitation is present.5. Severe tricuspid regurgitation present.6. There is severe | | pulmonary hypertension.7. Bowing of interatrial septum to the left, consistent with | | elevated right side pressures. | |ESV(Teich): 74.10 ml | |LVIDs: 4.09 cm | |SV(Teich): 35.16 ml | |RA Major: 4.91 cm | |RV Major: 8.03 cm | |RV Minor: 4.32 cm | |RVIDd: 4.05 cm | |RV Minor: 3.75 cm | |LVEF MOD A2C: 38.39 % | |SV MOD A2C: 68.28 ml | |LVEF MOD A4C: 31.07 % | |SV MOD A4C: 50.52 ml | |EF Biplane: 34.63 % | |LVEDV MOD BP: 167.14 ml | |LVESV MOD BP: 109.26 ml | |LVEDV MOD A2C: 177.83 ml | |LVLd A2C: 9.28 cm | |LVEDV MOD A4C: 162.56 ml | |LVLd A4C: 9.05 cm | |LVESV MOD A2C: 109.55 ml | |LVLs A2C: 8.39 cm | |LVESV MOD A4C: 112.04 ml | |LVLs A4C: 8.20 cm | |LAESV(A-L): 56.58 ml | |LAESV Index (A-L): 31.60 ml/m2 | |LAAs A2C: 18.56 cm2 | |LAESV A-L A2C: 58.49 ml | |LAESV MOD A2C: 54.57 ml | |LALs A2C: 5.00 cm | |LAAs A4C: 17.96 cm2 | |LAESV A-L A4C: 52.99 ml | |LAESV MOD A4C: 44.93 ml | |LALs A4C: 5.18 cm | |LAESV(MOD BP): 49.83 ml | |RAAs: 18.33 cm2 | |RAESV A-L: 57.01 ml | |RAESV MOD: 56.24 ml | |RALs: 5.02 cm | |TAPSE: 1.98 cm | |AV Env.Ti: 227.35 ms | |AV maxP.22 mmHg | |AV meanP.25 mmHg | |AV Vmax: 1.59 m/s | |AV Vmean: 1.06 m/s | |AV VTI: 24.30 cm | |TIMA Vmax: 2.68 cm2 | |TIMA (VTI): 2.73 cm2 | |AVAI Vmax: 0.00 cm2/m2 | |AVAI (VTI): 0.00 cm2/m2 | |LVOT Env.Ti: 210.72 ms | |LVOT maxP.99 mmHg | |LVOT meanP.87 mmHg | |LVSI Dopp: 37.17 ml/m2 | |LVSV Dopp: 66.54 ml | |LVOT Vmax: 1.41 m/s | |LVOT Vmean: 1.03 m/s | |LVOT VTI: 21.88 cm | |MV A Shahid: 0.39 m/s | |MV Dec [place]: 9.46 m/s2 | |MV DecT: 106.01 ms | |MV E Shahid: 1.00 m/s | |MV E/A Ratio: 2.54 | |E/E' Sept: 23.82 | |E' Lat: 0.08 m/s | |E' Sept: 0.04 m/s | |RAP: 15 mmHg | |RV S': 0.11 m/s | |RVSP: 67.64 mmHg | |TR maxP.64 mmHg | |TR Vmax: 3.61 m/s | | | |[employer]el[employer] Tung[employer] Arc: | |Authenticated by: René Noonan MD | |Report Date/Time: -- [id number]:15:25 | | | |IMPRESSION: | |1. Overall left ventricular systolic function is moderate-severely impaired with, an EF bet ween 30 - 35 %. | |2. Restrictive LV diastolic filling pattern, consistent with elevated LA pressure and sever e dysfunction (grade III). | |3. There is paradoxical/dysynergic septal motion consistent with right ventricular volume o verload and/or elevated right ventricular end-diastolic pressure. | |4. Moderate mitral regurgitation is present. | |5. Severe tricuspid regurgitation present. | |6. There is severe pulmonary hypertension. | |7. Bowing of interatrial septum to the left, consistent with elevated right side pressures. | + + documented in this encounter Visit Diagnoses Not on filedocumented in this encounter"
--- OUTSIDE RECORDS SUMMARY | ~2019-03-12 | XMS | Encounter Summary ---
Demographics + + + | Address | [address] | | | [place] [address] | + + + | Home Phone [...] | | | | | [place] [address] | | + + + + + | Thania Mallory | ECON | [address] | | | | | [place] [address] | | + + + + + | Deidra Weldon | ECON | [address] | | | | | [place] | | | | | [address] | | + + + + + Care Team Providers + +------+ + | Care Welfare Visitor Name | Role | Phone | + +------+ + | Jonathan Alosno MD | PCP | | + +------+ [...] | | | [place], | [place] [address] | | | | | [place] [address] | [phone] | | | | | | | [...] Denise | | | | | | [place], [place] | | | | | | [address] | | | | | | [phone] | | | | | | | | +--------+ + + + + documented as of this encounter Visit Diagnoses Not on filedocumented in this encounter"
--- OUTSIDE RECORDS SUMMARY | ~2019-03-12 | XMS | Encounter Summary ---
Demographics + + + | Address | [address] | | | [place] [address] | + + + | Home Phone [...] | | | | | [place] [address] | | + + + + + | Thania Mallory | ECON | [address] | | | | | [place] [address] | | + + + + + | Deidra Weldon | ECON | [address] | | | | | [place] | | | | | [address] | | + + + + + Care Team Providers + +------+ + | Care Director Peoplesoft Name | Role | Phone | + +------+ + | Jonathan Alonso MD | PCP | | + +------+ + Encounter Details +--------+ + + + + | Date | Type | Department | Care Team | Description | +--------+ + + + + | 01/20/ | Hospital | Radiology at [facility] | | | | 2014 | Encounter | [address] | | | | | | Mailcode: [id number] | | | | | | [place] | | | | | | [place], [place] | | | | | | [address] | | | | | | [phone] | | | +--------+ + + + [...] | El Starr MD | | | 2023 | Encounter | | [address] | | | | | | [place], [place] | | | | | | [address] | | | | | | [phone] | | | | | | | [...] | | + +---------+ + + | [facility] DEPARTMENT OF | | | | | [...]
--- OUTSIDE RECORDS SUMMARY | ~2019-03-12 | XMS | Encounter Summary ---
Demographics + + + | Address | [address] | | | [place] [address] | + + + | Home Phone [...] Author + + + | Author | [facility] | + + + | Organization | [facility] | + + + | Address | Unknown | + + + | Phone | Unavailable | + + + Support + + + + + | Name | Relationship | Address | Phone | + + + + + | Cory Weldon | ECON | [address] | | | | | [place] [address] | | + + + + + | Thania Mallory | ECON | [address] | | | | | [place] [address] | | + + + + + | Deidra Weldon | ECON | [address] | | | | | [place] | | | | | [address] | | + + + + + Care Team Providers + +------+ + | Care Director Of Construction Name | Role | Phone | + [...] | RN [address] | Update | | | | [place] | [facility] | | | | | [facility] | [place], [place] | | | | | [address] | [address] | | | | | Mailcode: [id number] | | | | | | [place] | | | | | | [place], [place] | | | | | | [address] | | | | | | [phone] | | | +--------+ + + + [...] [place] | | | | | | [address] | | | | | | [phone] | | | | | | | | +--------+ + + + + documented as of this encounter Visit Diagnoses Not on filedocumented in this encounter"
--- OUTSIDE RECORDS SUMMARY | ~2019-03-12 | XMS | Encounter Summary ---
Demographics + + + | Address | [address] | | | [place] [address] | + + + | Home Phone | | + + + | Preferred Language | Unknown | + + + | Marital Status | Single | + + + | Mu-Ism Affiliation | Unknown | + + + | Race | Unknown | + + + | Ethnic Group | Unknown | + + + Author + + + | Author | [facility] | | | and Josephana | + + + | Organization | [facility] | | | and Josephana [...] Team Providers + +------+ + | Care Tool And Die Designer Name | Role | Phone | + [...] Closed | | Nephrology | Diagnoses | Joy, | Stewartl, | | | | | ESRD (end | Sudhakar Castellanos, | Jorje Obrien DO | | | | | stage renal | [address] | [address] [place] [address] | | | | | disease) | [address] | [place] | | | | | (HCC) | [address] | [address] [place] | | | | | Anemia in | [place], [place] | [place], [place] | | | | | ESRD | [address] | [address] Phone: | | | | | (end-stage | Phone: | [phone] | | | | | renal | [phone] | Fax: | | | | | disease) | Fax: | [phone] | | | | | ([facility]) | [phone] | | | | | | Procedures | | | | | | | MA OFFICE | | | | | | | OUTPATIENT | | | | | | | VISIT 25 | | | | | | | MINUTES | | | +--------+--------+ + + + + Encounter Details +--------+ + + + + | Date | Type | Department | Care Team | Description | +--------+ + + + + | 01/01/ | Off-Site | [facility] [place] | Jorje Camp | ESRD (end stage | | 2018 | Visit | NEPHROLOGY [address] | M, DO [address] | renal disease) ([facility]) | | | | [address] | [place], [address] [address] | (Primary Dx) | | | | [place], [place] | [place], [place] | | | | | [address] | [address] | | | | | [phone] | | | +--------+ + + + [...] + + + | Blood Pressure | 139/114 | 01/02/2018 4:28 PM | | | | | PDT | | + + + + + | Pulse | - | - | | + + + + + | Temperature | 36.1 C (97 F) | 01/02/2018 4:28 PM | | | | | PDT [...] encounter Progress Notes Jorje Camp DO - 01/01/2018 2:15 PM PDT Subjective: DIALYSIS NOTE Patient ID: Dara Weldon is a 22 y.o. female. 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 She also has anemia secondary to CKD, SHPTH, centripetal obesity, ongoing nicotine addic tion, despite advice to quit, and chronic THC dependence. Unfortunately, she continues to struggle with shortened or missed treatments, noncomplianc e with fluid restriction, as well as her renal diet. More concerning is her chronic, rampan t hyperphosphatemia which she did not appear to be able to modify. Outpatient Prescriptions Marked as Taking for the 01/01/18 encounter (Off-Site Visit) with Jorje Camp DO Medication Sig Dispense Refill albuterol 90 mcg/puff inhaler Inhale 2 puffs into the lungs every 6 hours as needed for Wheezing. 1 Inhaler 11 cinacalcet (SENSIPAR) 90 MG tablet Take 1 tablet by mouth Daily (with dinner). 30 table t 11 clopidogrel (PLAVIX) 75 mg tablet Take 1 tablet by mouth Daily. 30 tablet 11 doxercalciferol (HECTOROL) 2 mcg/mL injection Inject 0.5 mcg into the vein Three times a week. Per dialysis clinic protocol epoetin jenna (EPOGEN,PROCRIT) 3,000 units/mL injection Inject 10,000 Units under the sk in Three times a week. hydrOXYzine (ATARAX) 50 MG tablet Take 1 tablet by mouth nightly as needed for Itching. 60 tablet 1 iron sucrose (VENOFER) 20 mg/mL injection Inject 2.5 mLs into the vein Once a week. losartan (COZAAR) 50 mg tablet Take 1 tablet by mouth Daily. 90 tablet 3 norethindrone (MICRONOR) 0.35 MG tablet Take 1 tablet by mouth Daily. 28 tablet 11 27-0.8 mg multivitamin tablet Take 1 tablet by mouth Daily. 30 tablet 11 raNITIdine (ZANTAC) 300 MG capsule Take 1 capsule by mouth every evening. 30 capsule 11 sevelamer carbonate (RENVELA) 800 mg tablet Take 4 tablets by mouth with meals and 3 ta blets with snacks 450 tablet 11 Allergies Allergen Reactions Adhesive & Tape Rash Certain tapes Morphine Itching and Rash Lisinopril cough Objective: BP (!) 139/114 | Temp 36.1 C (97 F) EDW 81 kg Physical Exam Heart: Regular rate and rhythm with no S3, S4, murmur or rub. Lungs: CTA bilaterally. No rales or wheezes. Abdomen: Soft, obese, nontender, normoactive bowel sounds.. Extremities: No clubbing, cyanosis, 2+ edema LAB: BUN 62, Cr 10.3, K+ 4.3, HCO3 24, Ca++ 10.2, P04 8.0, PTH 1410, albumin 3.7, Hb 10.8, spKT/V = 1.31. Assessment: 1. ESRD-- she is still chronically under dialyzed due to missed treatments. I did discuss with her and the charge nurse about 3 are treatments, thrice weekly to help improve her com pliance? However, nursing staff is fearful that she will not maintain adequate spKT/V is cu rrently she is borderline for clearance, with 4 hour treatments, 3 times a week. 2. Hypertension-- suboptimal control secondary inability maintain consistent UF. This has been explained to her very clearly. 3. SHPTH-- still chronic hyperphosphatemia and abnormal PTH. Refuses surgical therapy. I emphasized the need for a <1000 mg phosphorus restriction, to avoid calcifi c arteriosclerosis. 4. Nutrition-- albumin is below target, although she has a fairly good appetite despite un kenny dialysis. 5. Anemia secondary to CKD-- surprisingly, her Hb is in a reasonable range. Will need t o recheck her iron profile next quarter. 6. Centripetal obesity-- unchanged. She has little insight into health maintenance or p doug eating habits, unfortunately. 7. 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 8. Transplantation--not at all a candidate and at high risk for graft loss due to her stevie turity and lack of insight into her CKD. 9. Self-destructive behavior-- 10. Chronic Nicotine and THC dependence-- likely contributing to her lack of success? Plan: 1. She was counseled extensively by myself, the Fina charge nurse, Elisabeth Quijano RN, and [facility] medical student Yefri Bean MS III, about lifestyle modification, compliance, and her potential risk for increased her vascular morbidity, mortality. 2. 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 I discussed this wi th the renal LIBRARY HISTORIAN. 3. Monthly lab was reviewed with the patient. 4. Long-term prognosis remains poor, due to her poor to no insight into her chronic health conditions, or health maintenance. : Lannon Fina Alonso MD, PhD documented in thi s encounter Plan of Treatment +--------+---------+ + + + | Date | Type | Specialty | Care Team | Description | +--------+---------+ + + + | 04/18/ | Office | Pulmonology | Denny Alexander | | | 2020 | Visit | | Deny rBiggs MD [address] | | | | | | [address] | | | | | | [place] [address] | | | | | | [phone] | | | | | | | | +--------+---------+ + + + documented as of this encounter Visit Diagnoses + + | Diagnosis | + + | ESRD (end stage renal disease) (HCC) - Primary End stage renal disease | + + documented in this encounter"
--- OUTSIDE RECORDS SUMMARY | ~2019-03-12 | XMS | Encounter Summary ---
Demographics + + + | Address | [address] | | | [place] [address] | + + + | Home Phone [...] | | | | | [place] [address] | | + + + + + | Thania Mallory | ECON | [address] | | | | | [place] [address] | | + + + + + | Deidra Weldon | ECON | [address] | | | | | [place] | | | | | [address] | | + + + + + Care Team Providers + +------+ + | Care Rangelands Conservation Laborer Name | Role | Phone | [...] | | | | | Hospital | [facility] | | | | | | [address] | [address] | | | | | | [address] | [place], [place] | | | | | | [place] | [address] | | | | | | [place] | Phone: | | | | | | [address] | [phone] | | | | | | Phone: | | | | | | | [phone] | | | | | | | Fax: | | | | | | | [phone] | | +--------+--------+ + + + + Encounter Details +--------+---------+ + + + | Date | Type | Department | Care Team | Description | +--------+---------+ + + + | 05/24/ | Office | Specialty Clinics | Sudhakar Joy | HSP | | 2017 | Visit | at [facility] [address] | MD Emanuel [address] | (David | | | | [address] Mailcode: | [address] | purpura) nephritis | | | | [facility] | [place], [place] | (Primary Dx); Anemia | | | | [place], [place] | [address] | of chronic kidney | | | | [address] | [phone] | failure, stage 5 | | | | [phone] | | (HCC) | +--------+---------+ + + [...] documented in this encounter Progress Notes Kelsi Martinez, ABRIL - 05/24/2016 11:15 AM PDTMet with pt [...] not be referred for transplant. Her adult frog shaker could refer her to adult transplant when [...] MD [facility] [address] Mail code [facility] [place], [place] [address] documented in this encounter Plan of Treatment +--------+ + + + + | Date | Type | Specialty | Care Team | Description | +--------+ + + + + | 05/04/ | [facility] | Adult Acute Care | El Starr MD | | | 2022 | Encounter | | [address] | | | | | | [place], [place] | | | | | | [address] | | | | | | [phone] | | | | | | | [...]
--- OUTSIDE RECORDS SUMMARY | ~2019-03-12 | XMS | Encounter Summary ---
Demographics + + + | Address | [address] | | | [place] [address] | + + + | Home Phone [...] | | | | | [place] [address] | | + + + + + | Thania Mallory | ECON | [address] | | | | | [place] [address] | | + + + + + | Deidra Weldon | ECON | [address] | | | | | [place] | | | | | [address] | | + + + + + Care Team Providers + +------+ + | Care Document Analyst Name | Role | Phone | [...] | | [address] | [facility] | | | | | [address] [place], | [place], [place] | | | | | [place] [address] | [address] | | | | | [phone] | | | +--------+ + + + [...] [address] | | | | | | [place], [place] | | | | | | [address] | | | | | | [phone] | | | | | | | | +--------+ + + + + documented as of this encounter Visit Diagnoses Not on filedocumented in this encounter"
--- OUTSIDE RECORDS SUMMARY | ~2019-03-12 | XMS | Encounter Summary ---
Demographics + + + | Address | [address] | | | [place] [address] | + + + | Home Phone [...] Author | [facility] | | | and Josephana | + + + | Organization | [facility] | | | and Josephana [...] Team Providers + +------+ + | Care Animal Anatomist Name | Role | Phone | + +------+ + PCP | Unavailable | + +------+ + Encounter Details +--------+ + + + + | Date | Type | Department | Care Team | Description | +--------+ + + + + | 04/07/ | Hospital | [facility] | Conversion | | | 2015 | Encounter | [facility] | Transaction, | | | | | CLINIC [address] | Provider Unknown | | | | | [place], [place] | [phone] | | | | | [address] | | | | | | [phone] | | | +--------+ + + + [...] | | | | | | [address] | | | | | | [place] [address] | | | | | | [phone] | | | | | | | | +--------+---------+ + + + documented as of this encounter Procedures + +--------+ + + + | Procedure Name | Priori | Date/Time | Associated Diagnosis | Comments | | | ty | | | | + +--------+ + + + | EXTERNAL LAB: LAKHWINDER | Routin | 04/07/2014 | | Results for this | | | e | 5:45 PM | | procedure are in the | | | | PST | | results section. | + +--------+ + + + | MRSA NAAT | Timed | 04/07/2014 | | Results for this | | | | 5:45 PM | | procedure are in the | | | | PST | | results section. | + +--------+ + + + | PTT | Routin | 04/07/2014 | | Results for this | | | e | 5:45 PM | | procedure are in the | | | | PST | | results section. | + +--------+ + + + | PROTIME INR | Routin | 04/07/2014 | | Results for this | | | e | 5:45 PM | | procedure are in the | | | | PST | | results section. | + +--------+ + + + | , SERUM, | Routin | 04/07/2014 | | Results for this | | QUAL | e | 5:45 PM | | procedure are in the | | | | PST | | results section. | + +--------+ + + + | BASIC METABOLIC | Routin | 04/07/2014 | | Results for this | | PANEL | e | 5:45 PM | | procedure are in the | | | | PST | | results section. | + +--------+ + + + documented in this encounter Results MRSA NAAT (04/07/2014 5:45 PM PST) + + | Specimen | + + | | + + + + + | Narrative | Performed At | + + + | SOURCE BECKY(NOSE) | EXTERNAL LAB | | Testing performed at [facility];[address] [place] [address];[place] [address] MRSA PCR | | | NEGATIVE Testing performed at | | | [facility];[address] [place] [address];[place] [address] | | + + + + +---------+ + + | Performing | Address | City/State/Zipcode | Phone Number | | Organization | | | | + +---------+ + + | EXTERNAL LAB | | | | + +---------+ + + PTT (04/07/2014 5:45 PM PST) + + + + + + | Component | Value | Ref Range | Performed | Pathologist | | | | | At | Signature | + + + + + + | aPTT, | 43 (H)Comment: Testing | 23 - 32 seconds | EXTERNAL | | | Patient | performed at [facility];[address] | | LAB | | | [address];[place], [place] | | | | | | [address] | | | | + + + + + + + + | Specimen | + + | Blood specimen | | (specimen) | + + + +---------+ + + | Performing | Address | City/State/Zipcode | Phone Number | | Organization | | | | + +---------+ + + | EXTERNAL LAB | | | | + +---------+ + + Protime INR (04/07/2014 5:45 PM PST) + + + + + [...] [facility];[address] | | | | | | [address] [facility];[place], [place] | | | | | | [address] | | | | + + + + + + + + | Specimen | + + | Blood specimen | | (specimen) | + + + +---------+ + + | Performing | Address | City/State/Zipcode | Phone Number | | Organization | | | | + +---------+ + + | EXTERNAL LAB | | | | + +---------+ + + External Lab: CBC (04/07/2014 5:45 PM PST) + + + + + + | Component | Value | Ref Range | Performed | Pathologist | | | | | At | Signature | + + + + + + | WBC | 4.9Comment: Testing | 3.8 - 11.0 K/uL | EXTERNAL | | | | performed at [facility];[address] | | LAB | | | | [address];[place] | | | | | | [address] | | | | + + + + + + | RED CELL | 3.67 (L)Comment: Testing | 3.70 - 5.10 | EXTERNAL | | | COUNT | performed at [facility];[address] | M/uL | LAB | | | | [address];[place] | | | | | | [address] | | | | + + + + + + | Hgb | 13.0Comment: Testing | 11.3 - 15.5 | EXTERNAL | | | | performed at [facility];[address] | g/dL | LAB | | | | [address];[place] | | | | | | [address] | | | | + + + + + + | Hematocrit, | 38.3Comment: Testing | 34.0 - 46.0 % | EXTERNAL | | | POC | performed at [facility];[address] | | LAB | | | | [address];[place] | | | | | | [address] | | | | + + + + + + | MCV | 104.3 (H)Comment: | 80.0 - 100.0 fl | EXTERNAL | | | | Testing performed at | | LAB | | | | [facility];[address];[place] [address] | | | | + + + + + + | MCH | 35.4 (H)Comment: Testing | 27.0 - 34.0 pg | EXTERNAL | | | | performed at [facility];[address] | | LAB | | | | [address];[place] | | | | | | [address] | | | | + + + + + + | MCHC | 33.9Comment: Testing | 32.0 - 35.5 | EXTERNAL | | | | performed at [facility];[address] | g/dL | LAB | | | | [address];[place] | | | | | | [address] | | | | + + + + + + | RDW-CV | 48.1Comment: Testing | 37 - 53 fl | EXTERNAL | | | | performed at [facility];[address] | | LAB | | | | [address];[place] | | | | | | [address] | | | | + + + + + + | Platelet | 157Comment: Testing | 150 - 400 K/uL | EXTERNAL | | | Count | performed at [facility];[address] | | LAB | | | Plasma | [address];[place] | | | | | | [address] | | | | + + + + + + | MPV | 9.3Comment: Testing | fl | EXTERNAL | | | | performed at [facility];[address] | | LAB | | | | [address];[place] | | | | | | [address] | | | | + + + + + + | Differentia | AUTOMATEDComment: | | EXTERNAL | | | l Type | Testing performed at | | LAB | | | | [facility];[address];[place] [address] | | | | + + + + + + | % Segmented | 55.8Comment: Testing | % | EXTERNAL | | | | performed at [facility];[address] | | LAB | | | Neutrophils | [address];[place] | | | | | | [address] | | | | + + + + + + | % | 35.8Comment: Testing | % | EXTERNAL | | | Lymphocytes | performed at [facility];[address] | | LAB | | | | [address];[place] | | | | | | [address] | | | | + + + + + + | % Monocytes | 6.0Comment: Testing | % | EXTERNAL | | | | performed at [facility];[address] | | LAB | | | | [address];[place] | | | | | | [address] | | | | + + + + + + | % | 1.9Comment: Testing | % | EXTERNAL | | | Eosinophils | performed at [facility];[address] | | LAB | | | | [address];[place] | | | | | | [address] | | | | + + + + + + | % Basophils | 0.5Comment: Testing | % | EXTERNAL | | | | performed at [facility];[address] | | LAB | | | | [address];[place] | | | | | | [address] | | | | + + + + + + | Absolute | 2.8Comment: Testing | 1.9 - 7.4 K/uL | EXTERNAL | | | Segmented | performed at [facility];[address] | | LAB | | | Neutrophils | [address];[place] | | | | | | [address] | | | | + + + + + + | Absolute | 1.8Comment: Testing | 1.0 - 3.9 K/uL | EXTERNAL | | | Lymphocytes | performed at [facility];[address] | | LAB | | | | [address];[place] | | | | | | [address] | | | | + + + + + + | Absolute | 0.3Comment: Testing | 0 - 0.8 K/uL | EXTERNAL | | | Monocytes | performed at [facility];[address] | | LAB | | | | [address];[place] | | | | | | [address] | | | | + + + + + + | Absolute | 0.1Comment: Testing | 0 - 0.5 K/uL | EXTERNAL | | | Eosinophils | performed at [facility];[address] | | LAB | | | | [address];[place] | | | | | | [address] | | | | + + + + + + | Absolute | 0.0Comment: Testing | 0 - 0.1 K/uL | EXTERNAL | | | Basophils | performed at [facility];[address] | | LAB | | | | [address];[place] | | | | | | [address] | | | | + + + + + + + + | Specimen | + + | Blood specimen | | (specimen) | + + + +---------+ + + | Performing | Address | City/State/Zipcode | Phone Number | | Organization | | | | + +---------+ + + | EXTERNAL LAB | | | | + +---------+ + + , Serum, Qual (04/07/2014 5:45 PM PST) + + + + + + | Component | Value | Ref Range | Performed | Pathologist | | | | | At | Signature | + + + + + + | HCG | NEGATIVEComment: Testing | | EXTERNAL | | | QUALITATIVE | performed at [facility];[address] | | LAB | | | | [address];[place], [place] | | | | | | [address] | | | | + + + [...] + +---------+ + + Basic Metabolic Panel (04/07/2014 5:45 PM PST) + + + + + + | Component | Value | Ref Range | Performed | Pathologist | | | | | At | Signature | + + + + + + | Na | 138Comment: Testing | 135 - 143 | EXTERNAL | | | | performed at [facility];[address] | mmol/L | LAB | | | | [address];[place] | | | | | | [address] | | | | + + + + + + | K | 3.3 (L)Comment: Testing | 3.5 - 4.9 | EXTERNAL | | | | performed at [facility];[address] | mmol/L | LAB | | | | [address];[place] | | | | | | [address] | | | | + + + + + + | Cl | 99Comment: Testing | 99 - 109 mmol/L | EXTERNAL | | | | performed at [facility];[address] | | LAB | | | | [address];[place] | | | | | | [address] | | | | + + + + + + | CO2 | 29Comment: Testing | 23 - 32 mmol/L | EXTERNAL | | | | performed at [facility];[address] | | LAB | | | | [address];[place] | | | | | | [address] | | | | + + + + + + | Anion Gap | 13Comment: Testing | 5 - 20 mmol/L | EXTERNAL | | | | performed at [facility];[address] | | LAB | | | | [address];[place] | | | | | | [address] | | | | + + + + + + | Glucose, | 92Comment: Testing | 65 - 99 mg/dL | EXTERNAL | | | Fasting | performed at [facility];[address] | | LAB | | | | [address];[place] | | | | | | [address] | | | | + + + + + + | BUN | 30 (H)Comment: Testing | 8 - 25 mg/dL | EXTERNAL | | | | performed at [facility];[address] | | LAB | | | | [address];[place] | | | | | | [address] | | | | + + + + + + | Creatinine | 7.21 (H)Comment: Testing | 0.50 - 1.00 | EXTERNAL | | | | performed at [facility];[address] | mg/dL | LAB | | | | [address];[place] | | | | | | [address] | | | | + + + + + + | BUN/Creatin | 4Comment: Testing | | EXTERNAL | | | ine Ratio | performed at [facility];[address] | | LAB | | | | [address];[place] | | | | | | [address] | | | | + + + + + + | Calcium | 8.3 (L)Comment: NOTE NEW | 8.5 - 10.5 | EXTERNAL | | | | REFERENCE RANGETesting | mg/dL | LAB | | | | performed at [facility];[address] | | | | | | [address];[place] | | | | | | [address] | | | | + + + [...] [place];[address] | | | | | | [address];[place] | | | | | | [address] | | | | + + + [...]
--- OUTSIDE RECORDS SUMMARY | ~2019-03-12 | XMS | Encounter Summary ---
Demographics + + + | Address | [address] | | | [place] [address] | + + + | Home Phone | | + + + | Preferred Language | Unknown | + + + | Marital Status | Single | + + + | Shinto Affiliation | Unknown | + + + | Race | Unknown | + + + | Ethnic Group | Unknown | + + + Author + + + | Author | [facility] | | | and Josephana | + + + | Organization | [facility] | | | and Josephana | [...] Team Providers + +------+ + | Care Cloth Desizing Range Tender Name | Role | Phone | [...] | | | | | | | [place] | | | | | | | [...] | +--------+ + + + + | 02/24/ | Anesthesia | [facility] | Celso Dacosta | Obesity (BMI | | 2013 | Event | MED CTR OR INTRA OP | MD Douglas [address] | 30.0-34.9) (Primary | | | | [address] | [address] [place] | Dx) | | | | [place] | [address] | | | | | [address] | | | | | | [phone] | | | +--------+ + + + + Anesthesia Record + + + + + | Procedure Name | Responsible | Anesthesia Start | Anesthesia Stop Time | | | Anesthesiologist | Time | | + + + + + | LEFT Radical | | 02/24/14 0742 | 02/24/14 1033 | | Cephalic Fistula | | | | | Creation (Left Arm | | | | | Upper) | | | | + + + + + +----+---+ + + | Da | T | Event | Comment | | te | i | | | | | m | | | | | e | | | +----+---+ + + | 12 | 0 | An Checkout | Pre-use anesthesia machine/equipment checkout. | | /2 | 7 | | | | 2/ | 1 | | | | 20 | 3 | | | | 14 | | | | +----+---+ + + | | 0 | An Start | Reassessment prior to anesthesia induction/procedure. | | | 7 | | | | | 4 | | | | | 2 | | | +----+---+ + + | | 0 | an tk now | | | | 7 | | | | | 4 | | | | | 5 | | | +----+---+ + + | | 0 | Antibiotic | | | | 7 | Given | | | | 4 | | | | | 7 | | | +----+---+ + + | | 0 | Preoxygenat | | | | 7 | ed | | | | 4 | | | | | 8 | | | +----+---+ + + | | 0 | An | | | | 7 | Induction | | | | 5 | | | | | 0 | | | +----+---+ + + | | 0 | An | | | | 7 | Intubation | | | | 5 | | | | | 2 | | | +----+---+ + + | | 0 | AN Bite | | | | 7 | Block | | | | 5 | | | | | 5 | | | +----+---+ + + | | 0 | [place] | | | | 7 | 43-degrees | | | | 5 | | | | | 5 | | | +----+---+ + + | | 0 | an tk now | Case start | | | 8 | | | | | 0 | | | | | 9 | | | +----+---+ + + | | 0 | | | | | 8 | | | | | 1 | | | | | 8 | | | +----+---+ + + | | 0 | An Data Art | Counting qrs and t wave both | | | 8 | | | | | 2 | | | | | 0 | | | +----+---+ + + | | 0 | An ESU | | | | 8 | | | | | 2 | | | | | 2 | | | +----+---+ + + | | 1 | [place] off | | | | 0 | | | | | 1 | | | | | 5 | | | +----+---+ + + | | 1 | Extubated | | | | 0 | Awake | | | | 1 | | | | | 8 | | | +----+---+ + + | | 1 | An Stop | Patient handed off to recovery nurse. | | | 3 | | | | | 3 | | | +----+---+ + + +------+ | Meds | +------+ + + + | Name | Total | + + + | midazolam | 2 mg | + + + | lidocaine 2% (PF) | 60 mg | + + + | propofol | 150 mg | + + + | dexamethasone | 10 mg | + + + | ondansetron | 4 mg | + + + | phenylephrine (JERRY-SYNEPHRINE) IV | 700 mcg | | syringe 0.1 mg/mL | | + + + | ceFAZolin (ANCEF, KEFZOL) 1,000 | 1,000 mg | | mg in sodium chloride 0.9% 50 mL | | | IVPB | | + + + | HYDROmorphone | 2 mg | + + + | ePHEDrine | 25 mg | + + + | heparin | 5,000 Units | + + + | sodium chloride 0.9% (NS) | 700 mL | | infusion | | + + + + + | Name | + + | N2O Flow Rate (L/Min) | + + | O2 Flow Rate (L/Min) | + + | Insp O2 | + + | Exp SEV | + + | Exp ANEL | + + | Air Flow Rate (L/Min) | + + + + | No blood administrations on file. | + + +--------+ + + + | Type | Details | Placement | Removal | +--------+ + + + | [READ | 02/24/14; 0655; Chemistry; short | 02/24/14 0655 by | 02/24/14 1219 by | | ONLY] | term use; 12/22/14; 1219 | Taylor Worthy, RN | Tawanna Fernandez RN | | | | | | | Periph | | | | | eral | | | | | IV - | | | | | Single | | | | | Lumen | | | | | | | | | +--------+ + + + | Airway | Mask Ventilation: EZ; Airway | 02/24/14 0800 by | 02/24/14 1018 by | | | Type: laryngeal mask; Size: 4; | | Celso Dacosta, | | | Tube Reference Point: secure and | | MD | | | patent; Trauma: none; Placement | | | | | Check: verified by capnography; | | | | | Placed By: Anesthesiologist; | | | | | Removal Date: 02/24/14; Removal | | | | | Time: 1018 | | | +--------+ + + + | Read | 02/24/14; 0844; Left; arm; | 02/24/14 0844 by | 05/29/18 1342 by | | only - | 05/29/18 (Completed/Removed by | Lulu Hager, | User Epic | | | Utility); 1342 (Completed/Removed | RN | | | Incisi | by Utility) | | | | on | | | | +--------+ + + + | [READ | (present upon arrival to [facility]); | 02/24/14 1045 by | 05/28/18 1643 by | | ONLY] | arteriovenous fistula; Left; | Tawanna Fernandez RN | User Epic | | Hemodi | forearm; placed today in OR | | | | alysis | 02/24/2014; 05/28/18 | | | | | (Removed/Completed by utility); | | | | | 1643 (Removed/Completed by | | | | | utility) | | | +--------+ + + + | [READ | (present upon arrival to [facility]); | 02/24/14 1049 by | 05/28/18 1643 by | | ONLY] | subclavian vein catheter; Right; | Tawanna Fernandez RN | User Epic | | Hemodi | subclavian vein; 05/28/18 | | | | alysis | (Removed/Completed by utility); | | | | | 1643 (Removed/Completed by | | | | | utility) | | | +--------+ + + + documented in this encounter Social History + +-------+ +--------+------+ | Tobacco [...] E | | | | | | [place] [address] | | | | | | [phone] | | | | | | | | +--------+---------+ + + + documented as of this encounter Visit Diagnoses Not on filedocumented in this encounter Administered Medications + +--------+ + +------+------+ | Medication Order | MAR | Action | Dose | Rate | Site | | | Action | Date | | | | + +--------+ + +------+------+ | ceFAZolin (ANCEF, KEFZOL) 1,000 | Given | 02/25/20 | 1,000 mg | | | | mg in sodium chloride 0.9% 50 mL | | 14 7:47 | | | | | IVPB 1,000 mg, Intravenous, | | AM PST | | | | | Administer over 30 Minutes, Prior | | | | | | | to Incision, Starting Mon | | | | | | | 02/24/14 at 0620, For 1 dose, 1 | | | | | | | gm IV x 1 (<90kg), Substitute 2 | | | | | | | gm if > 90 kg. On-call to OR. | | | | | | | Activate system and mix before | | | | | | | use., Pre-op | | | | | | + +--------+ + +------+------+ +---+---+ | | | +---+---+ + +-------+ +-------+---+---+ | dexamethasone (DECADRON) 10 | Given | 02/25/20 | 10 mg | | | | mg/mL injection Intravenous, | | 14 7:50 | | | | | PRN, Starting 02/24/14 at | | AM PST | | | | | 0750, Anesthesia Intra-op | | | | | | + +-------+ +-------+---+---+ +---+---+ | | | +---+---+ + +-------+ +---------+---+---+ | ePHEDrine 50 mg/mL injection | Given | 02/25/20 | 6.25 mg | | | | PRN, Starting 02/24/14 at | | 14 8:34 | | | | | 0823, Anesthesia Intra-op | | AM PST | | | | + +-------+ +---------+---+---+ +-------+ +---------+---+---+ | Given | 02/25/20 | 6.25 mg | | | | | 14 8:30 | | | | | | AM PST | | | | +-------+ +---------+---+---+ | Given | 02/25/20 | 12.5 mg | | | | | 14 8:23 | | | | | | AM PST | | | | +-------+ +---------+---+---+ +---+---+ | | | +---+---+ + +-------+ +--------+---+---+ | heparin 1,000 units/mL | Given | 02/25/20 | 5,000 | | | | injection Intravenous, PRN, | | 14 8:48 | Units | | | | Starting 02/24/14 at 0848, | | AM PST | | | | | Anesthesia Intra-op | | | | | | + +-------+ +--------+---+---+ +---+---+ | | | +---+---+ + +-------+ +--------+---+---+ | HYDROmorphone (PF) (DILAUDID) 2 | Given | 02/25/20 | 0.5 mg | | | | mg/mL injection Intravenous, | | 14 9:05 | | | | | PRN, Pain, Starting 02/24/14 | | AM PST | | | | | at 0748, Anesthesia Intra-op | | | | | | + +-------+ +--------+---+---+ +-------+ +--------+---+---+ | Given | 02/25/20 | 0.5 mg | | | | | 14 8:00 | | | | | | AM PST | | | | +-------+ +--------+---+---+ | Given | 02/25/20 | 1 mg | | | | | 14 7:48 | | | | | | AM PST | | | | +-------+ +--------+---+---+ +---+---+ | | | +---+---+ + +-------+ +-------+---+---+ | lidocaine (PF) 2% injection | Given | 02/25/20 | 60 mg | | | | PRN, Starting 02/24/14 at | | 14 7:50 | | | | | 0750, Anesthesia Intra-op | | AM PST | | | | + +-------+ +-------+---+---+ +---+---+ | | | +---+---+ + +-------+ +------+---+---+ | midazolam (VERSED) 1 mg/mL | Given | 02/25/20 | 2 mg | | | | injection Intravenous, PRN, | | 14 7:42 | | | | | Anxiety, Starting 02/24/14 at | | AM PST | | | | | 0742, Anesthesia Intra-op | | | | | | + +-------+ +------+---+---+ +---+---+ | | | +---+---+ + +-------+ +------+---+---+ | ondansetron (ZOFRAN) injection | Given | 02/25/20 | 4 mg | | | | PRN, Nausea, Vomiting, Starting | | 14 7:50 | | | | | 02/24/14 at 0750, Anesthesia | | AM PST | | | | | Intra-op | | | | | | + +-------+ +------+---+---+ +---+---+ | | | +---+---+ + +-------+ +---------+---+---+ | phenylephrine (JERRY-SYNEPHRINE) | Given | 02/25/20 | 100 mcg | | | | 0.1 mg/mL IV syringe PRN, | | 14 9:36 | | | | | Starting 02/24/14 at 0756, | | AM PST | | | | | Anesthesia Intra-op | | | | | | + +-------+ +---------+---+---+ +-------+ +---------+---+---+ | Given | 02/25/20 | 100 mcg | | | | | 14 9:22 | | | | | | AM PST | | | | +-------+ +---------+---+---+ | Given | 02/25/20 | 50 mcg | | | | | 14 9:15 | | | | | | AM PST | | | | +-------+ +---------+---+---+ +---+---+ | | | +---+---+ + +-------+ +--------+---+---+ | propofol (DIPRIVAN) injection | Given | 02/25/20 | 150 mg | | | | PRN, Starting Mon02/24/14 at | | 14 7:50 | | | | | 0750, Anesthesia Intra-op | | AM PST | | | | + +-------+ +--------+---+---+ [...] | | | +---+---+ documented in this encounter"
--- OUTSIDE RECORDS SUMMARY | ~2019-03-12 | XMS | Encounter Summary ---
Demographics + + + | Address | [address] | | | [place] [address] | + + + | Home Phone [...] | | | | | [place] [address] | | + + + + + | Thania Mallory | ECON | [address] | | | | | [place] [address] | | + + + + + | Deidra Weldon | ECON | [address] | | | | | [place] | | | | | [address] | | + + + + + Care Team Providers + +------+ + | Care Floor Space Allocator Name | Role | Phone | + [...] | | | | | [address] [facility] | [facility] | | | | | [facility], | [place], [place] | | | | | [place] [address] | [address] | | | | | [phone] | | | +--------+ + + + [...] Denise | | | | | | [place], [place] | | | | | | [address] | | | | | | [phone] | | | | | | | | +--------+ + + + + documented as of this encounter Visit Diagnoses Not on filedocumented in this encounter"
--- OUTSIDE RECORDS SUMMARY | ~2019-03-12 | XMS | Encounter Summary ---
Demographics + + + | Address | [address] | | | [place] [address] | + + + | Home Phone [...] Author + + + | Author | [facility] | | | and [place]ana | + + + | Organization | [facility] | | | and [...] Team Providers + +------+ + | Care Certified Medical Technician Assistant Name | Role | Phone | + +------+ + PCP | Unavailable | + +------+ + Reason for Visit +--------+ + | Reason | Comments | +--------+ + | Other | | +--------+ + Encounter Details +--------+ + + + + | Date | Type | Department | Care Team | Description | +--------+ + + + + | 05/21/ | Telephone | [facility] [place] | Daniela Ibarra W, | Other | | 2014 | | NEPHROLOGY [address] | | | | | [address] | [address] [place] | | | | | [place], [place] | [place] [address] | | | | | [address] | [phone] | | | | | [phone] | | | +--------+ + + + [...] [place] | | | | | | [place] [address] | | | | | | [phone] | | | | | | | | +--------+---------+ + + + documented as of this encounter Visit Diagnoses Not on filedocumented in this encounter"
--- OUTSIDE RECORDS SUMMARY | ~2019-03-12 | XMS | Encounter Summary ---
Demographics + + + | Address | [address] | | | [place] [address] | + + + | Home Phone | | + + + | Preferred Language | Unknown | + + + | Marital Status | Single | + + + | Presybeterian Affiliation | Unknown | + + + | Race | Unknown | + + + | Ethnic Group | Unknown | + + + Author + + + | Author | [facility] | | | and Josephana | + + + | Organization | [facility] | | | and Josephana [...] Team Providers + +------+ + | Care Instrument And Control Technician Name | Role | Phone | + +------+ + | Jonathan Alonso MD | PCP | | + +------+ + Reason for Visit + + + | Reason | Comments | + + + | Kidney Transplant | Dara whelan so I called her back to complete intake questionnaire. | | Pre-evaluation | She currently ingests daily marijuana edibles with no current | | | [place] medical card/auth to do so. Her MD stated she would have to | | | obtain one in [place]. I explained that we would have to [...] | | KIDNEY TRANSPLANT | [address] [place], | (Dara whelan so I | | | | [address] [place] | [place] [address] | called her back to | | | | [address] [place], [place] | [phone] | complete intake | | | | [address] | | questionnaire. She | | | | [phone] | | currently ingests | | | [...] | | | | | one in [place]. I | | | | | | [...] encounter Progress Notes Elodia Hutchins - 06/13/2018 9:54 AM PDTReferral: Dara whelan so I called her back to complete intake questionnaire. She currently ingests da kamron marijuana edibles with no current [place] medical card/auth to do so. Her MD stated she would have to obtain one in [place]. I explained that we would have to close out her referral u ntil she obtains a medical/auth card for medicinal use and then be re-referred. A letter km ld be sent to her as well and she can call us with any further questions.Electronically sign ed by Elodia Hutchins at 06/13/2018 10:19 AM PDTdocumented in this encounter Plan of Treatment +--------+---------+ + + + | Date | Type | Specialty | Care Team | Description | +--------+---------+ + + + | 04/18/ | Office | Pulmonology | Denny Alexander | | | 2019 | Visit | | Deny Briggs MD [address] | | | | | | [address] | | | | | | [place] [address] | | | | | | [phone] | | | | | | | | +--------+---------+ + + + documented as of this encounter Visit Diagnoses Not on filedocumented in this encounter"
--- OUTSIDE RECORDS SUMMARY | ~2019-03-12 | XMS | Encounter Summary ---
Demographics + + + | Address | [address] | | | [place] [address] | + + + | Home Phone [...] + + + | Author | [facility] | | | and [place] | + + + | Organization | [facility] | | | and [...] Team Providers + +------+ + | Care Tobacco Shaker Name | Role | Phone | + [...] | +--------+ + + + + | 07/29/ | Documentati | [facility] [place] | Daniela Ibarra W, | Dialysis | | 2013 | on | NEPHROLOGY [address] | MD [address] | (Asymptomatic) | | | | [address] | [address] [place] | | | | | [place], [place] | [place] [address] | | | | | [address] | [phone] | | | | | [phone] | | | +--------+ + + + [...] of this encounter Progress Marilyn Jennings - 08/14/2013 9:55 AM PDTHEMO progress note manually faxed to [facility] [place], e-faxed to [facility] on 08/04 03/19. Daniela Marquez M D - 07/29/2013 1:57 PM PDT Comprehensive Dialysis Monthly Note Date of visit: 07/29/2013 Dialysis Clinic: [facility] Mode of dialysis: Hemodialysis Dialysis prescription: MWF, t=4 hrs, Na 136, K 3, bicarb 30, BFR 400, EDW 93 kg HPI: Dara Weldon is a 18 y.o. 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 Pt was diagnos ed with Henoch Schonlein purpura at age 10. She was treated with immunosuppression regimen, but progressed to ESRD and initiated peritoneal dialysis in 2012. Pt developed tunneled inf ection and acute peritonitis with MSSA, and had removal of PD catheter. Pt was started on h emodialysis last week. Pt reports she likes hemodialysis more than peritoneal dialysis. She feels she can do more things. Pt went camping with family this past weekend. Pt denies shortness of breath, ches t pain, edema, abdominal pain, cramping. Pt reports she feels pretty normal after HD treatm ents. Pt is taking her antibiotic; last dose will be on 08/01/13. Pt reports she continues to have significant urinary output. PROBLEM LIST: Patient Active Problem List Diagnosis Date Noted ESRD (end stage renal disease) ([facility]) Priority: High Note Last Updated: 07/29/2013 Due to Henoch-Schonlein purpura. On hemodialysis, started July 2013. Prior on peritoneal dialysis, started *. Access: R chest catheter. Peritonitis, dialysis-associated (HCC) 07/29/2013 Note Last Updated: 07/29/2013 Due to MSSA. Had tunneled infection as well. PD catheter removed in July 2013. On Keflex till 08/01/13. History of Henoch-Schonlein purpura Note Last Updated: 07/29/2013 Diagnosed at age 10[address] Joy, pediatric oncologist. Anemia in ESRD (end-stage renal disease) (HCC) Secondary hyperparathyroidism (HCC) Obesity No Known Allergies Outpatient Prescriptions Marked as Taking for the 07/29/13 encounter (Documentation) with Kerwin Ibarra MD Medication Sig Dispense Refill cephalexin (KEFLEX) 500 mg capsule Take 500 mg by mouth 2 times daily. cholecalciferol (VITAMIN D-3) 1,000 units tablet Take 1,000 Units by mouth Daily. cinacalcet (SENSIPAR) 60 MG tablet Take 60 mg by mouth Daily. Doxercalciferol (HECTOROL IV) Inject 1 mcg into the vein Three times a week. Iron Sucrose (VENOFER IV) Inject 100 mg into the vein Once a week. renal multivitamin (DIALYVITE, VOL-CARE) TABS Take 1 tablet by mouth every evening. sevelamer carbonate (RENVELA) 800 mg tablet Take 2,400 mg by mouth 3 times daily (with meals). 3 tablets with meals and 2 tablets with snacks EXAM: T 97.5, HR 83, BP 135/80, weight 97 kg, gain 3.3 kg Constitutional: Appears well-developed and well-nourished. No distress. Cardiovascular: Normal rate, regular rhythm and normal heart sounds. No gallop, murmur, or friction rub. No peripheral edema. Lungs: Respiratory effort normal and breath sounds normal. No crackles or wheezes. Abdominal: Soft. Bowel sounds are normal. Hal drain in place. Dressing over incision sites. Musculoskeletal: No muscle tenderness. Neurological: Alert. Dialysis Access: R chest catheter with BFR 400 mL/min. DIALYSIS LABS: Hemoglobin 12 / TSAT 23 / Ferritin 123 / WBC 8.5 / PLT 209 Sodium -- / Potassium 4.1 / Chloride -- / Bicarb 27 / Creatinine 5.72 / BUN 17 Albumin 3.6 / Calcium 9.6 / Phosphate 2.9 / PTH 92 / Vit D 24 eKt/V 1.03 (on 2.5 hrs) / URR 71% ASSESSMENT AND PLAN: 1. ESRD: Pt appears to have transitioned to hemodialysis without difficulty. Dialysis do esteves will be at goal with treatment time of 4 hrs. 2. Access: R chest catheter. Pt is not interested in AVF surgery at this time, as she anti cipates a kidney transplant to occur this year. 3. HTN/volume: Clinic BP is acceptable. Volume status appears stable. EDW reduced to 93 k g based on last treatment post-weight. 4. Anemia due to ESRD: Hb > 11. No indication for ESTEFANY. On maintenance Venofer. 5. Mineral bone disease: Serum calcium and phos are at goal. PTH is <150. -will decrease Renvela to 3T with meals; continue 2T with snacks -if PTH remains less than 150 next month, will decrease Sensipar to 30 mg QDAY 6. Acid-base: Serum bicarb >26. Will check next week; if >26, will decrease bicarb bath. 7. Nutrition: Serum albumin is not at goal. Likely due to recent infection. 8. Transplantation: Pt's father, Clayton, is a potential living donor. Pt has been referred t o [facility]. 9. Peritonitis, MSSA. On Keflex. [facility] L[facility]na Joy, [facility] Pediatric Nephrology documented in this encounter Plan of Treatment +--------+---------+ + + + | Date | Type | Specialty | Care Team | Description | +--------+---------+ + + + | 04/18/ | Office | Pulmonology | Denny Alexander | | | 2019 | Visit | | Deny Briggs MD [address] | | | | | | [address] | | | | | | [place] [address] | | | | | | [phone] | | | | | | | | +--------+---------+ + + + documented as of this encounter Visit Diagnoses + + | Diagnosis | + + | ESRD (end stage renal disease) (HCC) - Primary End stage renal disease | + + | Anemia in ESRD (end-stage renal disease) ([facility]) Anemia in chronic kidney disease | + + | Secondary hyperparathyroidism (HCC) Secondary hyperparathyroidism (of renal origin) | + + | Peritonitis, dialysis-associated, initial encounter (HCC) | + + documented in this encounter"
--- OUTSIDE RECORDS SUMMARY | ~2019-03-12 | XMS | Encounter Summary ---
Demographics + + + | Address | [address] | | | [place] [address] | + + + | Home Phone [...] | | | | | [place] [address] | | + + + + + | Thania Mallory | ECON | [address] | | | | | [place] [address] | | + + + + + | Deidra Weldon | ECON | [address] | | | | | [place] | | | | | [address] | | + + + + + Care Team Providers + +------+ + | Care Galley Boy Name | Role | Phone | + [...] ) | | | | [address] | [facility] | | | | | [facility], | [place], [place] | | | | | [place] [address] | [address] | | | | | [phone] | | | +--------+ + + + [...] [place] | | | | | | [address] | | | | | | [phone] | | | | | | | | +--------+ + + + + documented as of this encounter Visit Diagnoses Not on filedocumented in this encounter"
--- OUTSIDE RECORDS SUMMARY | ~2019-03-12 | XMS | Encounter Summary ---
Demographics + + + | Address | [address] | | | [place] [address] | + + + | Home Phone [...] | Author | [facility] | | | and [place]ana | + + + | Organization | [facility] | | | and [...] Team Providers + +------+ + | Care Element Burner Name | Role | Phone | + +------+ + PCP | Unavailable | + +------+ + Reason for Visit + + + | Reason | Comments | + + + | Medication Refill | | + + + Encounter Details +--------+--------+ + + + | Date | Type | Department | Care Team | Description | +--------+--------+ + + + | 04/18/ | Refill | [facility] [place] | Jorje Camp | Medication Refill | | 2017 | | NEPHROLOGY [address] | M, DO [address] | | | | | [address] | [address] | | | | | [place], [place] | [place], [place] | | | | | [address] | [address] | | | | | [phone] | | | +--------+--------+ + + + [...] | | | | | [place] [address] | | | | | | [phone] | | | | | | | | +--------+---------+ + + + documented as of this encounter Visit Diagnoses Not on filedocumented in this encounter"
--- OUTSIDE RECORDS SUMMARY | ~2019-03-12 | XMS | Encounter Summary ---
Demographics + + + | Address | [address] | | | [place] [address] | + + + | Home Phone [...] | | | | | [place] [address] | | + + + + + | Thania Mallory | ECON | [address] | | | | | [place] [address] | | + + + + + | Deidra Weldon | ECON | [address] | | | | | [place] | | | | | [address] | | + + + + + Care Team Providers + +------+ + | Care Dispensing Lead Name | Role | Phone | + [...] | | [address] | [facility] | | | | | [facility], | [place], [place] | | | | | [place] [address] | [address] | | | | | [phone] | | | +--------+ + + + [...] [place] | | | | | | [address] | | | | | | [phone] | | | | | | | | +--------+ + + + + documented as of this encounter Visit Diagnoses Not on filedocumented in this encounter"
--- OUTSIDE RECORDS SUMMARY | ~2019-03-12 | XMS | Encounter Summary ---
Demographics + + + | Address | [address] | | | [place] [address] | + + + | Home Phone [...] | | | | | [place] [address] | | + + + + + | Thania Mallory | ECON | [address] | | | | | [place] [address] | | + + + + + | Deidra Weldon | ECON | [address] | | | | | [place] | | | | | [address] | | + + + + + Care Team Providers + +------+ + | Care Centura Technical Lead Senior Developer Name | Role | Phone | [...] Visit | Services Inpatient | [address] [facility] | disease, stage V | | | | [address] [facility] | [facility] | (HCC) (Primary Dx) | | | | [address] [place] [address] | [place], [place] | | | | | Mailcode: [id number] | [address] | | | | | [place], [place] | [phone] | | | | | [address] | | | | | | [phone] | | | +--------+---------+ + + + [...] 30.4 12/20/12 MCV 98.4 12/20/12 ALB 3.4 12/20/12 NUTRITION PHYSICAL EXAM: GI symptoms: nausea when [...] at school. Discussed other ways to remember nelsy pratt setting alarms on cell phone. She took binders religiously this week and her phosphorus i s reflective of that. Last phosphorus per patient was 6.0 and previously it was > 7. Intervention/ Plan: Recommendations: Achieve/maintain dry weight at 215# for BMI 35 Maintain Phos < 5.5 Acceptable for kidney transplant from a nutrition perspective. Argentina Mehta, MS, RD, MD PHYSICIAN DERMATOLOGIST, LD documented in this e ncounter Plan of Treatment +--------+ + + + + | Date | Type | Specialty | Care Team | Description | +--------+ + + + + | 05/04/ | Hospital | Adult Acute Care | El Starr MD | | | 2022 | Encounter | | [address] | | | | | | [place], [place] | | | | | | [address] | | | | | | [phone] | | | | | | | | +--------+ + + + + documented as of this encounter Procedures + +--------+ + + + | Procedure Name | Priori | Date/Time | Associated Diagnosis | Comments | | | ty | | | | + +--------+ + + + | NV MNT INITIAL | Routin | 12/21/2012 | [...]
--- OUTSIDE RECORDS SUMMARY | ~2019-03-12 | XMS | Encounter Summary ---
Demographics + + + | Address | [address] | | | [place] [address] | + + + | Home Phone [...] | | | | | [place] [address] | | + + + + + | Thania Mallory | ECON | [address] | | | | | [place] [address] | | + + + + + | Deidra Weldon | ECON | [address] | | | | | [place] | | | | | [address] | | + + + + + Care Team Providers + +------+ + | Care Talent Acquisition Operations Manager Name | Role | Phone [...] Query) | | | | [address] [place], | [place], [place] | | | | | [place] [address] | [address] | | | | | [phone] | [phone] | | | | | | | [...] [place] | | | | | | [address] | | | | | | [phone] | | | | | | | | +--------+ + + + + documented as of this encounter Visit Diagnoses Not on filedocumented in this encounter"
--- OUTSIDE RECORDS SUMMARY | ~2019-03-12 | XMS | Encounter Summary ---
Demographics + + + | Address | [address] | | | [place] [address] | + + + | Home Phone [...] | | | | | [place] [address] | | + + + + + | Thania Mallory | ECON | [address] | | | | | [place] [address] | | + + + + + | Deidra Weldon | ECON | [address] | | | | | [place] | | | | | [address] | | + + + + + Care Team Providers + +------+ + | Care Recreational Therapy Aide Name | Role | Phone | + [...] Requested | | | | [place] | [facility] | | | | | [facility] | [place], [place] | | | | | [address] [place] [address] Dr | [address] | | | | | Mailcode: [id number] | | | | | | [place] | | | | | | [place], [place] | | | | | | [address] | | | | | | [phone] | | | +--------+ + + + [...] Hospital | Adult Acute Care | El tSarr MD | | | 2022 | Encounter | | [address] | | | | | | [place] | | | | | | [address] | | | | | | [phone] | | | | | | | | +--------+ + + + + documented as of this encounter Visit Diagnoses Not on filedocumented in this encounter"
--- OUTSIDE RECORDS SUMMARY | ~2019-03-12 | XMS | Encounter Summary ---
Demographics + + + | Address | [address] | | | [place] [address] | + + + | Home Phone [...] Author | [facility] | | | and Josephana | + + + | Organization | [facility] | | | and [...] Team Providers + +------+ + | Care Socket Welder Helper Name | Role | Phone | + +------+ + PCP | Unavailable | + +------+ + Encounter Details +--------+ + + + + | Date | Type | Department | Care Team | Description | +--------+ + + + + | 07/10/ | Joe | [facility] | Jorje Camp | | | 2017 | Encounter | NEPHROLOGY [address] | M, DO [address] | | | | | [address] | [place], [address] | | | | | [place], [place] | [place], [place] | | | | | [address] | [address] | | | | | [phone] | | | +--------+ + + + [...] [address] | | | | | | [place] [address] | | | | | | [phone] | | | | | | | | +--------+---------+ + + + documented as of this encounter Visit Diagnoses Not on filedocumented in this encounter"
--- OUTSIDE RECORDS SUMMARY | ~2019-03-12 | XMS | Encounter Summary ---
Demographics + + + | Address | [address] | | | [place] [address] | + + + | Home Phone [...] | + + + + + | oCry Weldon | ECON | [address] | | | | | [place] [address] | | + + + + + | Thania Mallory | ECON | [address] | | | | | [place] [address] | | + + + + + | Deidra Weldon | ECON | [address] | | | | | [place] | | | | | [address] | | + + + + + Care Team Providers + +------+ + | Care Technology Recruiter Name | Role | Phone | [...] | | | | | [address] [place], | [place], [place] | | | | | [place] [address] | [address] | | | | | [phone] | | | +--------+ + + + [...] [place] | | | | | | [address] | | | | | | [phone] | | | | | | | | +--------+ + + + + documented as of this encounter Visit Diagnoses Not on filedocumented in this encounter"
--- OUTSIDE RECORDS SUMMARY | ~2019-03-12 | XMS | Encounter Summary ---
Demographics + + + | Address | [address] | | | [place] [address] | + + + | Home Phone [...] | | | | | [place] [address] | | + + + + + | Thania Mallory | ECON | [address] | | | | | [place] [address] | | + + + + + | Deidra Weldon | ECON | [address] | | | | | [place] | | | | | [address] | | + + + + + Care Team Providers + +------+ + | Care Field Artillery Basic Name | Role | Phone | + [...] | | | | [address] [place] | [facility] | | | | | [place], | [place], [place] | | | | | [place] [address] | [address] | | | | | [phone] | | | +--------+ + + + [...] [place] | | | | | | [address] | | | | | | [phone] | | | | | | | | +--------+ + + + + documented as of this encounter Visit Diagnoses Not on filedocumented in this encounter"
--- OUTSIDE RECORDS SUMMARY | ~2019-03-12 | XMS | Encounter Summary ---
Demographics + + + | Address | [address] [place] [address] | | | [place] [address] | + + + | Home Phone [...] | | | | | [place] [address] | | + + + + + | Thania Mallory | ECON | [address] | | | | | [place] [address] | | + + + + + | Deidra Weldon | ECON | [address] | | | | | [place] | | | | | [address] | | + + + + + Care Team Providers + +------+ + | Care Hide Cooking Operator Name | Role | Phone | [...] | Nephrology at | MD Emanuel [address] [facility] | f/u appt on | | | | [place] | [address] | 03/16/12 to [place]) | | | | [facility] | [facility] [place] | | | | | [address] | [address] | | | | | Mailcode: DCAnna | [phone] | | | | | [place] | | | | | | [place], [place] | | | | | | [address] | | | | | | [phone] | | | +--------+ + + + [...] | | | | | | [place], [place] | | | | | | [address] | | | | | | [phone] | | | | | | | | +--------+ + + + + documented as of this encounter Visit Diagnoses Not on filedocumented in this encounter"
--- OUTSIDE RECORDS SUMMARY | ~2019-03-12 | XMS | Encounter Summary ---
Demographics + + + | Address | [address] | | | [place] [address] | + + + | Home Phone [...] + + + | Author | [facility] | | | and Josephana | + + + | Organization | [facility] | | | and Jsoephana | + + + | Address | [...] Providers + +------+ + | Care Senior Program Analyst Name | Role | Phone | [...] | kidney | Shun Griffin | [place] | | | | | disease(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 Outpatient Prescriptions Marked as Taking for the 10/28/13 encounter (Off-Site Visit) with Camille Camp, DO Medication Sig Dispense Refill cholecalciferol (VITAMIN D-3) 1,000 units tablet Take 1,000 Units by mouth Daily. cinacalcet (SENSIPAR) 30 mg tablet Take 30 mg by mouth Daily. [DISCONTINUED] Doxercalciferol (HECTOROL IV) Inject 1 mcg into the vein Three times a w [place] Epoetin Andres (EPOGEN IJ) 4,400 Units by [...] excellent candidate for a renal allograft. CC: [facility], [facility] documented in thi s encounter Plan of Treatment +--------+---------+ + + + | Date | Type | Specialty | Care Team | Description | +--------+---------+ + + + | 04/18/ | Office | Pulmonology | Denny [place] | | | 2019 | Visit | | Deny Briggs MD [address] | | | | | | [address] | | | | | | [place] [address] | | | | | | [phone] | | | | | | | [...]
--- OUTSIDE RECORDS SUMMARY | ~2019-03-12 | XMS | Encounter Summary ---
Demographics + + + | Address | [address] | | | [place] [address] | + + + | Home Phone [...] | | | | | [place] [address] | | + + + + + | Thania Mallory | ECON | [address] | | | | | [place] [address] | | + + + + + | Deidra Weldon | ECON | [address] | | | | | [place] | | | | | [address] | | + + + + + Care Team Providers + +------+ + | Care Drywall Foreman Name | Role | Phone | + [...] change | | | | [address] [place], | [place], [place] | clinic appt) | | | | [place] [address] | [address] | | | | | [phone] | | | +--------+ + + + [...] [place] | | | | | | [address] | | | | | | [phone] | | | | | | | | +--------+ + + + + documented as of this encounter Visit Diagnoses Not on filedocumented in this encounter"
--- OUTSIDE RECORDS SUMMARY | ~2019-03-12 | XMS | Encounter Summary ---
Demographics + + + | Address | [address] | | | [place] [address] | + + + | Home Phone [...] | | | | | [place] [address] | | + + + + + | Thania Mallory | ECON | [address] | | | | | [place] [address] | | + + + + + | Deidra Weldon | ECON | [address] | | | | | [place] | | | | | [address] | | + + + + + Care Team Providers + +------+ + | Care Product Manager E Commerce Name | Role | Phone | + [...] | | | | | [address] [place], | [place], [place] | | | | | [place] [address] | [address] | | | | | [phone] | [phone] | | | | | | | [...] Denise | | | | | | [place], [place] | | | | | | [address] | | | | | | [phone] | | | | | | | | +--------+ + + + + documented as of this encounter Visit Diagnoses Not on filedocumented in this encounter"
--- OUTSIDE RECORDS SUMMARY | ~2019-03-12 | XMS | Encounter Summary ---
Demographics + + + | Address | [address] | | | [place] [address] | + + + | Home Phone [...] | | | | | [place] [address] | | + + + + + | Thania Mallory | ECON | [address] | | | | | [place] [address] | | + + + + + | Dedira Weldon | ECON | [address] | | | | | [place] | | | | | [address] | | + + + + + Care Team Providers + +------+ + | Care Steel Estimator Name | Role | Phone | + +------+ + | No Pcp Per Patient | PCP | Unavailable | + +------+ + Reason for Visit + + + | Reason | Comments | + + + | Social work | [place] attempt(s) to contact pt re move and new PAF as listed | | consultation | | + + + Encounter Details +--------+ + + + + | Date | Type | Department | Care Team | Description | +--------+ + + + + | 05/02/ | Telephone | Clinical | Mariza Hsu | Social work | | 2015 | | Transplant Services | [address] | consultation ([place] | | | | [address] | [address] | attempt(s) to | | | | [address] [place], | [place], [place] | contact pt [place] move | | | | [place] [address] | [address] | and new PAF as | | | | [phone] | | listed) | +--------+ + + [...] Denise | | | | | | [place], [place] | | | | | | [address] | | | | | | [phone] | | | | | | | | +--------+ + + + + documented as of this encounter Visit Diagnoses Not on filedocumented in this encounter"
--- OUTSIDE RECORDS SUMMARY | ~2019-03-12 | XMS | Encounter Summary ---
Demographics + + + | Address | [address] | | | [place] [address] | + + + | Home Phone [...] | | | | | [place] [address] | | + + + + + | Thania Mallory | ECON | [address] | | | | | [place] [address] | | + + + + + | Deidra Weldon | ECON | [address] | | | | | [place] | | | | | [address] | | + + + + + Care Team Providers + +------+ + | Care Insulator Helper Name | Role | Phone | [...] Shun | | | | | [address] [facility] [address] | [facility] | | | | | [place], [place] | [place] [address] | | | | | [address] | [phone] | | | | | | | [...] Denise | | | | | | [place], [place] | | | | | | [address] | | | | | | [phone] | | | | | | | | +--------+ + + + + documented as of this encounter Visit Diagnoses Not on filedocumented in this encounter"
--- OUTSIDE RECORDS SUMMARY | ~2019-03-12 | XMS | Encounter Summary ---
Demographics + + + | Address | [address] | | | [place] [address] | + + + | Home Phone | | + + + | Preferred Language | Unknown | + + + | Marital Status | Single | + + + | Amish Affiliation | Unknown | + + + | Race | Unknown | + + + | Ethnic Group | Unknown | + + + Author + + + | Author | [facility] | | | and Josephana | + + + | Organization | [facility] | [...] Team Providers + +------+ + | Care Commodities Broker Name | Role | Phone | + +------+ + | Tien Nicholson MD | PCP | | + +------+ + Encounter Details +--------+ + + + + | Date | Type | Department | Care Team | Description | +--------+ + + + + | 05/26/ | Hospital | [facility] | Mayco Rizvi MD | Chest pain, | | 2019 - | Encounter | [facility] | [address] [place] | unspecified type; | | | | CARE FLOOR [address] | [address] [place], [place] | Hypoalbuminemia; | | 06/01/ | | [address] | [address] | Anemia in ESRD | | 2019 | | [place], [place] | | (end-stage renal | | | | [address] | | disease) ([facility]); | | | | [phone] | | End-stage renal | | | | | | disease on | | | | | | hemodialysis ([facility]); | | | | | | Pleural [...] | | | | failure) ([facility]) | +--------+ + + + [...] in this encounter Discharge Summaries Darell Rossi MD - 06/01/2018 9:59 AM PDTFormatting of this note might be different f rom the original. Discharge Summaries by Darell Rossi MD at 06/01/18 0959 Author: Darell Rossi MD Service: Hospitalist Author Type: Physician Filed: 06/15/18 1207 Date of Service: 06/01/18 0959 Status: Addendum Physician Executive: Darell Rossi MD (Physician) Related Notes: Original Note by Darell Rossi MD (Physician) filed at 06/04/[address] [facility] Service: Hospitalist Physician Discharge Summary Pt: Dara Louise AGE/SEX: 23 y.o. female ROOM: [address] [place] [address] PCP: TIEN NICHOLSON : 1995 Admit date: [...] 17. The mitral valve is normal. 18. Oori-in-exrey ate eccentric mitral regurgitation is present. 19. [...] anemia of chronic disease who went to [facility] with increasing shortness of breath found to have right pleural effusion who was transfer red to [facility] underwent right-sided diagnostic and therapeutic thoracocentesis with [...] hyperkalemia with that. I discussed with the shipyard helper as well regarding not being on [place]/ARB. [...] l LABS: Recent Labs Lab 06/01/1844205/31/18 0504 05/30/18 0418 WBC 5.40 4.57 4.80 HGB 10.7* 10.9* 10.7* HCT 32.4* 32.9* 31.7* PLT 119* 107* 118* NEUTOPHILPCT 54.51 55.65 58.60 MONOPCT 8.93 7.18 6.15 Recent Labs Lab 06/01/18 0443 05/31/18 0504 05/30/18 0418 NA 139 139 138 K 4.7 4.3 3.8 CL 101 99 97* CO2 33* 32 31 BUN * 19 34* CREATININE 7.2* 5.6* 7.8* PROT [...] Component Value Units Date/Time Culture, Body Fluid [[id number]] Collected: 05/26/18 1412 Specimen: Body Fluid from Pleural Fluid Updated: 05/30/18 0733 Specimen Description PLEURAL FLUID GRAM STAIN WBC'S SEEN GRAM STAIN NO ORGANISMS SEEN GRAM STAIN STAIN PERFORMED ON CYTOSPIN CULTURE NO GROWTH 4 DAYS Culture, Body Fluid [[id number]] Collected: 05/26/18 1513 Specimen: Other from Ascites Fluid Updated: 05/30/18 0732 Specimen Description ASCITES FLUID GRAM STAIN STAIN PERFORMED ON CYTOSPIN GRAM STAIN WBC'S SEEN GRAM STAIN NO EPITHELIAL CELLS SEEN GRAM STAIN NO ORGANISMS SEEN CULTURE NO GROWTH 4 DAYS Gram stain [[id number]] Collected: 05/29/18 1256 Specimen: Sputum from Thoracic Fluid Updated: 05/29/18 2339 Specimen Description THORACIC FLUID CULTURE 1+ WBC'S SEEN NO ORGANISMS SEEN Lactate dehydrogenase, body fluid [[id number]] Collected: 05/29/18 1256 Specimen: Body Fluid from Pleural, Right Updated: 05/29/18 1619 FLUID LDH 151 U/L Cholesterol, body fluid [[id number]] Collected: 05/29/18 1256 Specimen: Body Fluid from Pleural, Right Updated: 05/29/18 161 FLUID CHOLESTEROL 56 mg/dL Disposition: Home or [...] medications if needed. Follow-Up: Tien Nicholson MD [address], [address] [place] [address] In 1 week Carolina Mahmood DO [address] [facility] [id number] In 1 week Daniela Ibarra MD [address] [facility] [id number] In 1 week Discharge took more than 35 minutes, to include final examination, discussion of admission, and preparation of prescriptions, instructions for ongoing care, follow up and dictation of summary. Signed: DARELL ROSSI MD 06/01/2018 9:59 AM Dictation software, [facility], used which may contain error for similar sounding words even af ter review. Personal communication requested for any clarification. Portions of this chart may have been copied from previous notes for continuity of care purp ose documented in this encounter Medications at Time [...] | | | renal disease) ([facility]) | protocol | | | [...] Notes by Tino Paiz CRT at 06/01/18 1506 Author: Tino Paiz CRT Service: (none) Author Type: Certified Respiratory Therapi st Filed: 06/01/18 1506 Date of Service: 06/01/18 150 Status: Signed Physician Executive: Tino Paiz CRT (Certified Respiratory Therapist) [facility] Department of Respiratory Long-Term Oxygen Evaluation (Evaluation is valid for 48 [...] (none) Author Type: Registered Nurse Filed: 06/01/18 7509 Date of Service: 06/01/18 1500 Status: Signed Physician Executive: Autumn Moy RN (Registered Nurse) Pt was [...] Management by Leanna Ariza RN at 06/01/18 1248 Author: Leanna Ariza RN Service: (none) Author Type: Registered Nurse Filed: 06/01/18 1250 Date of Service: 06/01/18 1248 Status: Signed Physician Executive: Leanna Ariza RN (Registered Nurse) Pt will d/c home today --already established on HD/[place] MWF --will have O2 eval today No other needs Angela Antonio Carrasco MD - 06/01/2018 10:52 AM PDTFormatting of this note might be different from the orig inal. Progress Notes by Antonio Benjamin MD at 06/01/18 1052 Author: Antonio Benjamin MD Service: Nephrology Author Type: Physician Filed: 06/05/18 1253 Date of Service: 06/01/18 1052 Status: Signed Physician Executive: Antonio Benjamin MD (Physician) [facility] Service: NEPHROLOGY Dialysis/ Progress Note Dara Lundberg Shiraz 23 y.o. [id number] female [facility] Day: LOS: 6 days Patient with PMH [...] AV FISTULA; Surgeon: Rik Simon MD; Location: [facility] MAIN OR; Service: Vascula r; Laterality: Left; cephalic AV FISTULA REPAIR Left 03/07/2014 Procedure: AV FISTULA - GRAFT REPAIR/REVISION; Surgeon: Rik Simon MD; Location: [facility] [place] IN OR; Service: Vascular; Laterality: Left; DECLOT GRAFT Left 03/07/2014 Procedure: GRAFT - DECLOT; Surgeon: Rik Simon MD; Location: [facility] MAIN OR; Service: Vas cular; Laterality: Left; DIALYSIS FISTULA CREATION N/A 04/08/2014 Procedure: DIALYSIS CATHETER - INSERTION; Surgeon: Rik Simon MD; Location: [facility] MAIN OR ; Service: Vascular; Laterality: N/A; tunneled catheter LAPAROSCOPIC PERITONEAL DIALYSIS CATHETER INSERTION x2 LAPAROSCOPIC PERITONEAL DIALYSIS CATHETER INSERTION Right 07/2013 current dialysis access MWF dialysis RENAL BIOPSY SUPERFICIALIZATION OF AV FISTULA Left 06/24/2014 Procedure: AV FISTULA - SUPERFICIALIZATION; Surgeon: Rik Simon MD; Location: [facility] MAIN OR; Service: Vascular; Laterality: Left; History reviewed. [...] radiologist report and is used for image [employer] only Us Abdomen Limited Result Date: 05/28/2018 [...] 17. The mitral valve is normal. 18. Xywt-qi-iypyipdx eccentric mitral regurgitation i s present. 19. [...] mitral valve is normal. Mitral Kait ve: Kzep-er-bxbwddfk eccentric mitral regurgitation is present. Tricuspid Valve: [...] maxP.08 mmHg TR Vmax: 2.7 4 m/s Wallcovering Texturer: MOO Authenticated by: Robel Yusuf MD Report [...] 17. The mitral valve is normal. 18. Ldav-oy-wuhvb ate eccentric mitral regurgitation is present. 19. [...] pleural spac e is punctured with an 8-Slovenian thoracentesis catheter. Fluid is aspirated without complicat [...] earlier and charting completed later Dictation software, [facility], used which may contain error for similar sounding words even af ter review. Personal communication requested for any clarification. Portions of my notes may have been carried over for continuity of care. onversion Transaction, Provider Unknown - 06/01/2018 12:36 AM PDTFormatting of this note might be different from t he original. Nurse Progress Note by Aury Eldridge RN at 06/01/1835 Author: Aury Eldridge RN Service: (none) Author Type: Registered Nurse Filed: 06/01/18 0632 Date of Service: 06/01/1835 Status: Signed Physician Executive: Aury Eldridge RN (Registered Nurse) Pts VSS. [...] 05/31/181840 Date of Service: 05/31/181840 Status: Signed Physician Executive: Romelia Cooley RN (Registered Nurse) End of shift chart review complete. Romelia Cooley RN koum, René Mckeon MD - 05/31/2018 11:32 AM PDTFormatting of this note might be different from the candice ginal. Progress Notes by René Anguiano MD at 05/31/18 113 Author: René Anguiano MD Service: Nephrology Author Type: Physician Filed: 05/31/18 1654 Date of Service: 05/31/18 113 Status: Addendum Physician Executive: René Anguiano MD (Physician) Related Notes: Original Note [...] put on "an antibiotic" for pneumonia at [facility] ED. Was throwing up & could not [...] the prelim submitted orders, MWF No acute BAKERY MANAGER indication ESTEFANY as indicated with HD Protein [...] the changes with the author on 05/31. René Anguiano MD ex, Darell Escalera MD - 05/31/2018 9:42 AM PDT Progress Notes by Darell Rossi MD at 05/31/18941 Author: Darell Rossi MD Service: Hospitalist Author Type: Physician Filed: 05/31/18 0951 Date of Service: 05/31/18941 Status: Signed Physician Executive: Darell Rossi MD (Physician) [facility] Service: Hospitalist Progress Note Pt: Dara Louise AGE/SEX: 23 y.o. female ROOM: [address] [place] [address] : 1995 PCP: TIEN NICHOLSON ADMIT DATE: 05/26/2018 TODAY'S DATE: 05/31/2018 Hospital Day/Hospital Course: LOS: [address] Figueroa 23-year-old female with past medical history of end-stage renal disease on hemodialysis Mon, hypertension, anemia of chronic disease who went to [facility] with increasing shortness of breath found to have right pleural effusion who was transfer red to [facility] underwent right-sided diagnostic and therapeutic thoracocentesis with [...] Component Value Units Date/Time Culture, Body Fluid [[id number]] Collected: 05/26/18 1412 Specimen: Body Fluid from Pleural Fluid Updated: 05/30/18 0733 Specimen Description PLEURAL FLUID GRAM STAIN WBC'S SEEN GRAM STAIN NO ORGANISMS SEEN GRAM STAIN STAIN PERFORMED ON CYTOSPIN CULTURE NO GROWTH 4 DAYS Culture, Body Fluid [[id number]] Collected: 05/26/18 1513 Specimen: Other from Ascites Fluid Updated: 05/30/18 0732 Specimen Description ASCITES FLUID GRAM STAIN STAIN PERFORMED ON CYTOSPIN GRAM STAIN WBC'S SEEN GRAM STAIN NO EPITHELIAL CELLS SEEN GRAM STAIN NO ORGANISMS SEEN CULTURE NO GROWTH 4 DAYS Gram stain [[id number]] Collected: 05/29/18 1256 Specimen: Sputum from Thoracic Fluid Updated: 05/29/18 2339 Specimen Description THORACIC FLUID CULTURE 1+ WBC'S SEEN NO ORGANISMS SEEN Lactate dehydrogenase, body fluid [[id number]] Collected: 05/29/18 1256 Specimen: Body Fluid from Pleural, Right Updated: 05/29/18 1619 FLUID LDH 151 U/L Cholesterol, body fluid [[id number]] Collected: 05/29/18 1256 Specimen: Body Fluid from Pleural, Right Updated: 05/29/18 1619 FLUID CHOLESTEROL 56 mg/dL Sputum culture [[id number]] Collected: 05/27/182014 Specimen: Sputum from Sputum Updated: [...] 17. The mitral valve is normal. 18. Vjre-ud-hvwzy ate eccentric mitral regurgitation is present. 19. [...] anemia of chronic disease who went to [facility] with increasing shortness of breath due to acute congestive heart failure Acute systolic congestive heart failure with Pleural Effusion: Admitted with acute systolic congestive heart failure with bilateral pleural effusion stat us post thoracentesis 2. Her breathing has improved. She is talking to me appropriately. N ot in any kind of distress. visitor services information assistant to initiate the discharge plan. Possible dischar [...] MD, FACP 05/31/2018 9:42 AM Dictation software, [facility], used which may contain error for similar sounding words even af ter review. Personal communication requested for any clarification. Portions of this chart may have been copied from previous notes for continuity of care purp ose onversion Transac tion, Provider Unknown - 05/31/2018 2:54 AM PDTFormatting of this note might be different f rom the original. Nurse Progress Note by Nandini Robertson RN at 05/31/18253 Author: Nandini Robertson RN Service: (none) Author Type: Registered Nurse Filed: 05/31/18253 Date of Service: 05/31/18253 Status: Signed Physician Executive: Nandini Robertson RN (Registered Nurse) Chart review completed. onver arturo Transaction, Provider Unknown - 05/30/2018 6:37 PM PDT Nurse Progress Note by Kyra Amador RN at 05/30/181836 Author: Kyra Amador RN Service: (none) Author Type: Registered Nurse Filed: 05/30/181842 Date of Service: 05/30/181836 Status: Signed Physician Executive: Kyra Amador RN (Registered Nurse) VSS. Pt c/o abd cramping during dialysis which was treated with PRN tramadol. PRN phenergan x1, PRN zofran x1. Tolerated food well. Ambulated tena few times, tolerated well. Kyra Amador 05/30/18 6:42 PM Chart check complete. Laine, Darell Escalera MD - 05/30/2018 9:09 AM PDT Progress Notes by Darell Rossi MD at 05/30/18908 Author: Darell Rossi MD Service: Hospitalist Author Type: Physician Filed: 05/30/18 1243 Date of Service: 05/30/18 0909 Status: Signed Physician Executive: Darell Rossi MD (Physician) [facility] Service: Hospitalist Progress Note Pt: Dara Toño Louise AGE/SEX: 23 y.o. female ROOM: [facility]- : 1995 PCP: TIEN NICHOLSON ADMIT DATE: 05/26/2018 TODAY'S DATE: 05/30/2018 Hospital Day/Hospital Course: LOS: [address] Figueroa 23-year-old female with past medical history of end-stage renal disease on hemodialysis Mon day Monday, hypertension, anemia of chronic disease who went to [facility] with increasing shortness of breath found to have right pleural effusion who was transfer red to [facility] underwent right-sided diagnostic and therapeutic thoracocentesis with [...] suicida l LABS: Recent Labs Lab 05/30/1841705/29/18 0457 05/28/18 0923 WBC 4.80 5.44 5.10 [...] Component Value Units Date/Time Culture, Body Fluid [[id number]] Collected: 05/26/18 1412 Specimen: Body Fluid from Pleural Fluid Updated: 05/30/18 1282 Specimen Description PLEURAL FLUID GRAM STAIN WBC'S SEEN GRAM STAIN NO ORGANISMS SEEN GRAM STAIN STAIN PERFORMED ON CYTOSPIN CULTURE NO GROWTH 4 DAYS Culture, Body Fluid [[id number]] Collected: 05/26/18 1513 Specimen: Other from Ascites Fluid Updated: 05/30/18 0732 Specimen Description ASCITES FLUID GRAM STAIN STAIN PERFORMED ON CYTOSPIN GRAM STAIN WBC'S SEEN GRAM STAIN NO EPITHELIAL CELLS SEEN GRAM STAIN NO ORGANISMS SEEN CULTURE NO GROWTH 4 DAYS Gram stain [[id number]] Collected: 05/29/18 1256 Specimen: Sputum from Thoracic Fluid Updated: 05/29/18 2339 Specimen Description THORACIC FLUID CULTURE 1+ WBC'S SEEN NO ORGANISMS SEEN Lactate dehydrogenase, body fluid [[id number]] Collected: 05/29/18 1256 Specimen: Body Fluid from Pleural, Right Updated: 05/29/18 1619 FLUID LDH 151 U/L Cholesterol, body fluid [[id number]] Collected: 05/29/18 1256 Specimen: Body Fluid from Pleural, Right Updated: 05/29/18 1619 FLUID CHOLESTEROL 56 mg/dL Sputum culture [[id number]] Collected: 05/27/182014 Specimen: Sputum from Sputum Updated: [...] 17. The mitral valve is normal. 18. Mzzp-ys-fgwvg ate eccentric mitral regurgitation is present. 19. [...] anemia of chronic disease who went to [facility] with increasing shortness of breath due to [...] MD, FACP 05/30/2018 9:10 AM Dictation software, [facility], used which may contain error for similar sounding words even af ter review. Personal communication requested for any clarification. Portions of this chart may have been copied from previous notes for continuity of care purp ose onversion Transac tion, Provider Unknown - 05/30/2018 4:17 AM PDTFormatting of this note might be different f rom the original. Nurse Progress Note by Nandini Robertson RN at 05/30/18416 Author: Nandini Robertson RN Service: (none) Author Type: Registered Nurse Filed: 05/30/18417 Date of Service: 05/30/18416 Status: Signed Physician Executive: Nandini Robertson RN (Registered Nurse) Pt did well overnight. VSS. Chart review completed. Carolina Cantor, Medical Student - 05/29/2018 7:56 PM PDT Progress Notes by Carolina Mahmood DO at 05/29/181955 Author: Carolina Mahmood DO Service: Cardiology Author Type: Physician Filed: 05/29/182014 Date of Service: 05/29/181955 Status: Signed Physician Executive: Carolina Mahmood DO (Physician) [facility] Service: Cardiology Progress Note Hospital Day: [...] 05/29/181742 Date of Service: 05/29/181739 Status: Signed Physician Executive: Flaco Can RN (Registered Nurse) Pt VSS. [...] Notes by Anthony Figueroa MD at 05/29/18 1347 Author: Anthony Figueroa MD Service: Hospitalist Author Type: Physician Filed: 05/29/18 8607 Date of Service: 05/29/181342 Status: Signed Physician Executive: Anthony Figueroa MD (Physician) Hospitalist Progress Note Dara Louise 23 y.o. [id number] female [facility] Day: LOS: 3 days Patient Summary: 23-year-old female with past medical history of end-stage renal dis ease on hemodialysis Monday, hypertension, anemia of chronic disease who we nt to [facility] with increasing shortness of breath found to have right pleural e ffusion who was transferred to [facility] underwent right-sided diagnostic and therapeu tic thoracocentesis with removal of 1 L of fluid likely transudative, Gram stain and culture s negative so far and also had high volume paracentesis 4 L in the emergency department. Pa joy was started on Rocephin and azithromycin for [...] (36.8 C)] 97.6 F (36.4 C) (05/29 1313) BP: (111-137)/(59-85) 133/84 (05/29 131) Heart Rate: [66-88] 75 (05/29 1238) Resp: [17-20] 20 (05/29 131) SpO2: [91 %-100 %] 100 % (05/29 131) I&O Detailed Table: Intake/Output Summary (Last 24 [...] Value Units Date/Time Lactate dehydrogenase, body fluid [[id number]] Collected: 05/29/18 125 Specimen: Body Fluid from Pleural, Right Updated: 05/29/18 1315 Cholesterol, body fluid [[id number]] Collected: 05/29/18 125 Specimen: Body Fluid from Pleural, Right Updated: 05/29/18 1315 Gram stain [[id number]] Collected: 05/29/18 125 Specimen: Sputum from OTHR-w source desc (F6) Updated: 05/29/18 1309 Sputum culture [[id number]] Collected: 05/27/182014 Specimen: Sputum from Sputum Updated: 05/29/18 0947 Specimen Description SPUTUM GRAM STAIN LESS THAN 10 WBCS/LPF GRAM STAIN LESS THAN 10 SEC/LPF GRAM STAIN NO ORGANISMS SEEN CULTURE 1+ NORMAL UPPER RESPIRATORY ALESSANDRO HIV 1/2 Ab reflex [[id number]] Collected: 05/28/18 1236 Specimen: Blood Updated: 05/29/18 0942 HIV1/HIV2 NON REACTIVE Protime-INR [[id number]] Collected: 05/29/1852 Specimen: Blood Updated: 05/29/1840 INR 1.5 APTT [[id number]] Collected: 05/29/1852 Specimen: Blood Updated: 05/29/1840 APTT 29 seconds Culture, Body Fluid [[id number]] Collected: 05/26/18 1513 Specimen: Other from Ascites Fluid Updated: 05/29/18 0920 Specimen Description ASCITES FLUID GRAM STAIN STAIN PERFORMED ON CYTOSPIN GRAM STAIN WBC'S SEEN GRAM STAIN NO EPITHELIAL CELLS SEEN GRAM STAIN NO ORGANISMS SEEN CULTURE NO GROWTH 3 DAYS Culture, Body Fluid [[id number]] Collected: 05/26/18 1412 Specimen: Body Fluid from Pleural Fluid Updated: 05/29/18917 Specimen Description PLEURAL FLUID CULTURE NO GROWTH 3 DAYS Comprehensive metabolic panel [[id number]] (Abnormal) Collected: 05/29/18456 Specimen: Blood Updated: 05/29/18615 [...] mL/min/1.73m2 CBC W/Auto Diff (Reflex to Manual) [[id number]] (Abnormal) Collected: 05/29/18456 Specimen: Blood Updated: 05/29/18612 [...] 0.05 K/uL MORPHOLOGY 2+ hCG, serum, qualitative [[id number]] Collected: 05/28/18922 Specimen: Blood Updated: 05/28/181949 TEST,SERUM NEGATIVE C-reactive protein [[id number]] (Abnormal) Collected: 05/28/18922 Specimen: Blood Updated: 05/28/181940 CRP 5.1 (H) mg/dL Sedimentation rate, automated [[id number]] Collected: 05/28/18922 Specimen: Blood Updated: 05/28/18 1734 ESR 2 mm/Hr Hepatitis panel,acute [[id number]] Collected: 05/28/18 1236 Specimen: Blood Updated: 05/28/18 1650 HAV AB,IGM NON REACTIVE HEP B SURFACE AG NON REACTIVE ANTI HEP B CORE,IGM NON REACTIVE HEPATITIS C NON REACTIVE HEPATITIS INTERP No serologic evidence of HAV, HBV, or HCV infection. Troponin I [[id number]] Collected: 05/28/18922 Specimen: Blood Updated: 05/28/18 143 TROPONIN I 0.034 ng/mL Troponin I [[id number]] Collected: 05/28/18 1359 Specimen: Blood Updated: 05/28/18 143 TROPONIN I 0.037 ng/mL Renal function panel [[id number]] (Abnormal) Collected: 05/28/18 1209 Specimen: Blood from Blood Updated: 05/28/18 1302 SODIUM 141 mmol/L POTASSIUM 4.3 mmol/L CHLORIDE 101 mmol/L CO2 29 mmol/L ANION GAP AGAP 15 mmol/L GLUCOSE 78 mg/dL BUN 43 (H) mg/dL CREATININE 7.97 (H) mg/dL CALCIUM 9.1 mg/dL Albumin 3.6 g/dL PHOSPHORUS 6.3 (H) mg/dL EGFR 6 (L) mL/min/1.73m2 CBC W/Auto Diff (Reflex to Manual) [[id number]] (Abnormal) Collected: 05/28/18922 Specimen: Blood Updated: 05/28/18 [...] 0.05 K/uL MORPHOLOGY 1+ Comprehensive metabolic panel [[id number]] (Abnormal) Collected: 05/28/18922 Specimen: Blood Updated: 05/28/18 [...] (H) U/L EGFR 6 (L) mL/min/1.73m2 TSH [[id number]] Collected: 05/28/18922 Specimen: Blood Updated: 05/28/18 1210 TSH 1.270 uIU/mL Pathologist consult [[id number]] Collected: 05/26/18 1412 Updated: 05/28/18 1113 Pathologist Consult -- Hepatitis panel, chronic [[id number]] (Abnormal) Collected: 05/27/18 1758 Updated: 05/27/18 203 Hep A Total Ab REACTIVE (A) HEP B SURFACE AG NON REACTIVE HEP B CORE AB,TOTAL NON REACTIVE HEP B SURFACE ANTIBODY 3.27 (H) IV HEPATITIS C NON REACTIVE HEPATITIS INTERP Current or past HAV infection. Past HBV infection or vaccination. No ser ologic evidence of HCV infection. CBC w/auto diff (reflex to manual) [[id number]] (Abnormal) Collected: 05/27/18 0425 Specimen: Blood Updated: 05/27/18 0711 WBC 6.62 [...] K/uL MORPHOLOGY 2+ Platelet Estimate DECREASED Phosphorus [[id number]] (Abnormal) Collected: 05/27/18424 Specimen: Blood Updated: 05/27/18628 PHOSPHORUS 8.0 (H) mg/dL Basic Metabolic Panel [[id number]] (Abnormal) Collected: 05/27/18424 Specimen: Blood Updated: 05/27/18628 SODIUM 135 mmol/L POTASSIUM 5.9 (H) mmol/L CHLORIDE 96 (L) mmol/L CO2 25 mmol/L ANION GAP AGAP 20 mmol/L GLUCOSE 74 mg/dL BUN 51 (H) mg/dL CREATININE 9.2 (H) mg/dL BUN/CREAT 6 CALCIUM 9.4 mg/dL EGFR 5 (L) mL/min/1.73m2 Magnesium [[id number]] (Abnormal) Collected: 05/27/18424 Specimen: Blood Updated: 05/27/18628 MAGNESIUM 2.7 (H) mg/dL Brain natriuretic peptide [[id number]] (Abnormal) Collected: 05/27/18424 Specimen: Blood Updated: 05/27/1846 BRAIN NATRIURETIC PEPTIDE 1,153.92 (H) pg/mL Respiratory Filmarray [[id number]] (Abnormal) Collected: 05/26/181805 Specimen: Nasopharynx/Oropharynx Updated: 05/26/182141 [...] performed by Molecular Methodology MRSA by PCR [[id number]] Collected: 05/26/181805 Specimen: Nasopharyngeal from Nares(Nose) Updated: 05/26/182025 SOURCE NARES(NOSE) MRSA PCR NEGATIVE Procalcitonin [[id number]] (Abnormal) Collected: 05/26/181726 Updated: 03/23/19 1839 PROCALCITONIN 0.76 (H) ng/mL Albumin, Body Fluid [[id number]] Collected: 05/26/181411 Specimen: Body Fluid from Lung, Right Lower Lobe Updated: 05/26/18 172 FLUID ALBUMIN 2.3 g/dL Total Protein, Body Fluid [[id number]] Collected: 05/26/181411 Specimen: Body Fluid from Lung, Right Lower Lobe Updated: 05/26/18 172 FLUID TOTAL PROTEIN 4.2 g/dL FLUID TP SOURCE PLEURAL FLUID Cell count, Body Fluid [[id number]] Collected: 05/26/181411 Specimen: Body Fluid from Lung, Right Lower Lobe Updated: 05/26/18 170 FLUID TYPE PLEURAL FLUID COLOR SAMMIE APPEARANCE CLOUDY RBC'S 3,000 /mm3 TOTAL NUCLEATED CELLS 253 /mm3 NEUTROPHILS 22 % LYMPHOCYTES 8 % MONOCYTES/MACROPHAGES 65 % Mesothelial Cells 5 % CELLS COUNTED 100 pH, Body Fluid [[id number]] Collected: 05/26/181411 Specimen: Body Fluid from Lung, [...] Pseudonormal LV diastolic filling pattern, consistent wi elevated LA pressure and moderate dysfunction (Grade [...] 17. The mitral valve is normal. 18. Niaw-gt-mgrkjnzd eccentric mitral regurgitation i s present. 19. [...] mass visualized 27. No clot visualized FINDIN -------- ECG rhythm: Sinus rhythm. Study: A [...] mitral valve is normal. Mitral Kait ve: Vnmf-is-wrngxkak eccentric mitral regurgitation is present. Tricuspid Valve: [...] maxP.08 mmHg TR Vmax: 2.7 4 m/s Wallcovering Texturer: MOO Authenticated by: Robel Yusuf MD Report [...] 17. The mitral valve is normal. 18. Qwqg-hw-cjptf ate eccentric mitral regurgitation is present. 19. [...] imbalance Acute systolic CHF (congestive heart failure) ([facility]) Transaminitis ASSESSMENT & PLAN Bilateral pleural effusion [...] on heparin ANTHONY FIGUEROA MD 05/29/2018 koum, René Mckeon MD - 0 05/29/2018 7:26 AM PDT Progress Notes by René Anguiano MD at 05/29/18725 Author: René Anguiano MD Service: Nephrology Author Type: Physician Filed: 05/31/18 6030 Date of Service: 05/29/18725 Status: Addendum Physician Executive: René Anguiano MD (Physician) Related Notes: Original Note by KRISHNA Waters (Nurse Practitioner) filed at 05/05 08/22 3486 Hospital Problem List: Active Problems: ESRD on [...] put on "an antibiotic" for pneumonia at [facility]. Was throwing up & could not [...] the prelim submitted orders, MWF No acute BAKERY MANAGER indication ESTEFANY as indicated with HD Protein [...] the changes with the author on 05/29. René Anguiano MD onversion Transaction , Provider Unknown - 05/29/2018 5:54 AM PDT Nurse Progress Note by Vernell Weston RN at 05/29/18 0554 Author: Vernell Weston RN Service: (none) Author Type: Registered Nurse Filed: 05/29/18 0555 Date of Service: 05/29/18553 Status: Signed Physician Executive: Vernell Weston RN (Registered Nurse) End of [...] 05/28/181940 Date of Service: 05/28/181939 Status: Signed Physician Executive: Saundra Hartley RN (Registered Nurse) No acute [...] by Cayden Caceres RN at 05/28/181720 Author: Cayden Caceres RN Service: Nephrology Author Type: Registered Nurse Filed: 05/28/181721 Date of Service: 05/28/181720 Status: Signed Physician Executive: Cayden Caceres RN (Registered Nurse) UF 2 L with HD today. nthony Figueroa MD - 05/28/2018 12:26 PM PDTFormatting of this note might be different from the or iginal. Progress Notes by Anthony Figueroa MD at 05/28/18 1226 Author: Anthony Figueroa MD Service: Hospitalist Author Type: Physician Filed: 05/28/18 1233 Date of Service: 05/28/18 1226 Status: Signed Physician Executive: Anthony Figueroa MD (Physician) Hospitalist Progress Note Dara Louise 23 y.o. [id number] female [facility] Day: LOS: 2 days Patient Summary: 23-year-old female with past medical history of end-stage renal dis ease on hemodialysis Monday, hypertension, anemia of chronic disease who we nt to [facility] with increasing shortness of breath found to have right pleural e ffusion who was transferred to [facility] underwent right-sided diagnostic and therapeu tic thoracocentesis [...] (36.7 C)] 97.1 F (36.2 C) (05/28 344) BP: (110-131)/(50-91) 116/71 (05/28 744) Heart Rate: [...] Component Value Units Date/Time Culture, Body Fluid [[id number]] Collected: 05/26/18 9848 Specimen: Other from Ascites Fluid Updated: 05/28/18 1225 Specimen Description ASCITES FLUID GRAM STAIN STAIN PERFORMED ON CYTOSPIN GRAM STAIN WBC'S SEEN GRAM STAIN NO EPITHELIAL CELLS SEEN GRAM STAIN NO ORGANISMS SEEN CULTURE NO GROWTH 2 DAYS Culture, Body Fluid [[id number]] Collected: 05/26/18 141 Specimen: Body Fluid from Pleural Fluid Updated: 05/28/18 1223 Specimen Description PLEURAL FLUID CULTURE NO GROWTH 2 DAYS Comprehensive metabolic panel [[id number]] (Abnormal) Collected: 05/28/18922 Specimen: Blood Updated: 05/28/18 [...] (H) U/L EGFR 6 (L) mL/min/1.73m2 TSH [[id number]] Collected: 05/28/18922 Specimen: Blood Updated: 05/28/18 1210 TSH 1.270 uIU/mL Pathologist consult [[id number]] Collected: 05/26/18 141 Updated: 05/28/18 1113 Pathologist Consult -- Troponin I [[id number]] Collected: 05/28/18922 Specimen: Blood Updated: 05/28/18 1055 CBC W/Auto Diff (Reflex to Manual) [[id number]] Collected: 05/28/18922 Specimen: Blood Updated: 05/28/18 0939 Sputum culture [[id number]] Collected: 05/27/182014 Specimen: Sputum from Sputum Updated: 05/28/18902 Specimen Description SPUTUM GRAM STAIN LESS THAN 10 WBCS/LPF GRAM STAIN LESS THAN 10 SEC/LPF GRAM STAIN NO ORGANISMS SEEN CULTURE CULTURE IN PROGRESS Hepatitis panel, chronic [[id number]] (Abnormal) Collected: 05/27/181757 Updated: 05/27/182030 Hep A Total Ab REACTIVE (A) HEP B SURFACE AG NON REACTIVE HEP B CORE AB,TOTAL NON REACTIVE HEP B SURFACE ANTIBODY 3.27 (H) IV HEPATITIS C NON REACTIVE HEPATITIS INTERP Current or past HAV infection. Past HBV infection or vaccination. No ser ologic evidence of HCV infection. CBC w/auto diff (reflex to manual) [[id number]] (Abnormal) Collected: 05/27/18424 Specimen: Blood Updated: 05/27/18 [...] K/uL MORPHOLOGY 2+ Platelet Estimate DECREASED Phosphorus [[id number]] (Abnormal) Collected: 05/27/18424 Specimen: Blood Updated: 05/27/18 0629 PHOSPHORUS 8.0 (H) mg/dL Basic Metabolic Panel [[id number]] (Abnormal) Collected: 05/27/18424 Specimen: Blood Updated: 05/27/1829 SODIUM 135 mmol/L POTASSIUM 5.9 (H) mmol/L CHLORIDE 96 (L) mmol/L CO2 25 mmol/L ANION GAP AGAP 20 mmol/L GLUCOSE 74 mg/dL BUN 51 (H) mg/dL CREATININE 9.2 (H) mg/dL BUN/CREAT 6 CALCIUM 9.4 mg/dL EGFR 5 (L) mL/min/1.73m2 Magnesium [[id number]] (Abnormal) Collected: 05/27/18424 Specimen: Blood Updated: 05/27/18 0629 MAGNESIUM 2.7 (H) mg/dL Brain natriuretic peptide [[id number]] (Abnormal) Collected: 05/27/18424 Specimen: Blood Updated: 05/27/18 0546 BRAIN NATRIURETIC PEPTIDE 1,153.92 (H) pg/mL Respiratory Filmarray [[id number]] (Abnormal) Collected: 05/26/181805 Specimen: Nasopharynx/Oropharynx Updated: 05/26/182141 [...] performed by Molecular Methodology MRSA by PCR [[id number]] Collected: 05/26/18 180 Specimen: Nasopharyngeal from Nares(Nose) Updated: 05/26/182025 SOURCE NARES(NOSE) MRSA PCR NEGATIVE Procalcitonin [[id number]] (Abnormal) Collected: 05/26/18 1727 Updated: 05/26/18 1839 PROCALCITONIN 0.76 (H) ng/mL Albumin, Body Fluid [[id number]] Collected: 05/26/18 1412 Specimen: Body Fluid from Lung, Right Lower Lobe Updated: 05/26/18 1729 FLUID ALBUMIN 2.3 g/dL Total Protein, Body Fluid [[id number]] Collected: 05/26/18 1412 Specimen: Body Fluid from Lung, Right Lower Lobe Updated: 05/26/18 1729 FLUID TOTAL PROTEIN 4.2 g/dL FLUID TP SOURCE PLEURAL FLUID Cell count, Body Fluid [[id number]] Collected: 05/26/18 141 Specimen: Body Fluid from Lung, Right Lower Lobe Updated: 05/26/18 1708 FLUID TYPE PLEURAL FLUID COLOR SAMMIE APPEARANCE CLOUDY RBC'S 3,000 /mm3 TOTAL NUCLEATED CELLS 253 /mm3 NEUTROPHILS 22 % LYMPHOCYTES 8 % MONOCYTES/MACROPHAGES 65 % Mesothelial Cells 5 % CELLS COUNTED 100 pH, Body Fluid [[id number]] Collected: 05/26/18 1412 Specimen: Body Fluid from Lung, Right Lower Lobe Updated: 05/26/18 1508 FLUID PH 7.45 Procalcitonin [[id number]] (Abnormal) Collected: 05/26/18 1214 Updated: 05/26/18 1330 PROCALCITONIN 0.56 (H) ng/mL Cardiac Panel [[id number]] (Abnormal) Collected: 05/26/18 1214 Updated: 05/26/18 1312 [...] ng/mL CK-MB Index 2.7 Brain natriuretic peptide [[id number]] (Abnormal) Collected: 05/26/18 1214 Updated: 05/26/18 1254 [...] radiologist report and is used for image [employer] Echo Cardiac Adult Complete Result Date: 05/27/2018 [...] 17. The mitral valve is normal. 18. Wiem-rb-sxizkreh eccentric mitral regurgitation i s present. 19. [...] mitral valve is normal. Mitral Kait ve: Gckb-nc-ztvwmykw eccentric mitral regurgitation is present. Tricuspid Valve: [...] maxP.08 mmHg TR Vmax: 2.7 4 m/s Wallcovering Texturer: MOO Authenticated by: Robel Yusuf MD Report [...] 17. The mitral valve is normal. 18. Yivt-ak-stvpu ate eccentric mitral regurgitation is present. 19. [...] Progress Note by Timothy Butler RN at 05/28/1804 Author: Timothy Butler RN Service: (none) Author Type: Registered Nurse Filed: 05/28/1808 Date of Service: 05/28/18703 Status: Signed Physician Executive: Timothy Butler RN (Registered Nurse) Pt A&Ox4 [...] 05/27/181957 Date of Service: 05/27/181954 Status: Signed Physician Executive: Vernell Weston RN (Registered Nurse) Called into [...] 05/27/181924 Date of Service: 05/27/181922 Status: Signed Physician Executive: Saundra Hartley RN (Registered Nurse) Pt has complained of some nausea during shift, PRN zofran given with relief. Pt also given norco x1 for pain. Pt c/o increased SOB, MD aware. Pt currently getting dialysis will also g et again tomorrow. SBP 110-130, HR 70-80's, and afebrile. Pt remains on oxygen via nasal can nula. End of shift audit complete. Saundra Hartley RN onver arturo Transaction, Provider Unknown - 05/27/2018 3:30 PM PDT Case Management by DORON Ashby at 05/27/181529 Author: DORON Ashby Service: (none) Author Type: Structural Biologist Filed: 05/27/181533 Date of Service: 05/27/181529 Status: Signed Physician Executive: DORON Ashby (Structural Biologist) 05/27/181529 Discharge Planning Evaluation Admitting Diagnosis SOB [...] Patient/Family concerns No Met with Dara Louise ([phone]) and discussed discharge planning. Pt is a 23 y.o., female who resides alone in [place], [place]. Pt states that she has supportive family and frie nds. Pt's mother lives 50 miles away; pt's sister lives 15 minutes away. Pt is independent and does not have a caregiver. Patient's PCP is: TIEN NICHOLSON Patient's insurance: Medicare and Medicaid Coverage concerns: None Medication coverage/concerns: None Community resources utilized / needed: Pt does outpatient dialysis at [facility] in [facility] on Monday, Monday and Monday Assistance in [...] Notes by Anthony Figueroa MD at 05/27/18 1325 Author: Anthony Figueroa MD Service: Hospitalist Author Type: Physician Filed: 05/27/18 4468 Date of Service: 05/27/18 1325 Status: Signed Physician Executive: Anthony Figueroa MD (Physician) Hospitalist Progress Note Dara Lundberg Shiraz 23 y.o. [id number] female [facility] Day: LOS: 1 day Patient Summary: 23-year-old female with past medical history of end-stage renal dis ease on hemodialysis Monday, hypertension, anemia of chronic disease who we nt to [facility] with increasing shortness of breath found to have right pleural e ffusion who was transferred to [facility] underwent right-sided diagnostic and therapeu tic thoracocentesis [...] Date/Time CBC w/auto diff (reflex to manual) [[id number]] (Abnormal) Collected: 05/27/18424 Specimen: Blood Updated: 05/27/18710 [...] K/uL MORPHOLOGY 2+ Platelet Estimate DECREASED Phosphorus [[id number]] (Abnormal) Collected: 05/27/18424 Specimen: Blood Updated: 05/27/18628 PHOSPHORUS 8.0 (H) mg/dL Basic Metabolic Panel [[id number]] (Abnormal) Collected: 05/27/18424 Specimen: Blood Updated: 05/27/18628 SODIUM 135 mmol/L POTASSIUM 5.9 (H) mmol/L CHLORIDE 96 (L) mmol/L CO2 25 mmol/L ANION GAP AGAP 20 mmol/L GLUCOSE 74 mg/dL BUN 51 (H) mg/dL CREATININE 9.2 (H) mg/dL BUN/CREAT 6 CALCIUM 9.4 mg/dL EGFR 5 (L) mL/min/1.73m2 Magnesium [[id number]] (Abnormal) Collected: 05/27/18424 Specimen: Blood Updated: 05/27/18 0629 MAGNESIUM 2.7 (H) mg/dL Brain natriuretic peptide [[id number]] (Abnormal) Collected: 05/27/18424 Specimen: Blood Updated: 05/27/18 0546 BRAIN NATRIURETIC PEPTIDE 1,153.92 (H) pg/mL Respiratory Filmarray [[id number]] (Abnormal) Collected: 05/26/181805 Specimen: Nasopharynx/Oropharynx Updated: 05/26/182141 [...] performed by Molecular Methodology MRSA by PCR [[id number]] Collected: 05/26/181805 Specimen: Nasopharyngeal from Nares(Nose) Updated: 05/26/182025 SOURCE NARES(NOSE) MRSA PCR NEGATIVE Procalcitonin [[id number]] (Abnormal) Collected: 05/26/18 1727 Updated: 05/26/18 183 PROCALCITONIN 0.76 (H) ng/mL Culture, Body Fluid [[id number]] Collected: 05/26/18 141 Specimen: Body Fluid from Pleural Fluid Updated: 05/26/18 181 Pathologist consult [[id number]] Collected: 05/26/181411 Updated: 05/26/18 174 Albumin, Body Fluid [[id number]] Collected: 05/26/181411 Specimen: Body Fluid from Lung, Right Lower Lobe Updated: 05/26/18 172 FLUID ALBUMIN 2.3 g/dL Total Protein, Body Fluid [[id number]] Collected: 05/26/18 1412 Specimen: Body Fluid from Lung, Right Lower Lobe Updated: 05/26/18 1729 FLUID TOTAL PROTEIN 4.2 g/dL FLUID TP SOURCE PLEURAL FLUID Cell count, Body Fluid [[id number]] Collected: 05/26/18 1412 Specimen: Body Fluid from Lung, Right Lower Lobe Updated: 05/26/18 1708 FLUID TYPE PLEURAL FLUID COLOR SAMMIE APPEARANCE CLOUDY RBC'S 3,000 /mm3 TOTAL NUCLEATED CELLS 253 /mm3 NEUTROPHILS 22 % LYMPHOCYTES 8 % MONOCYTES/MACROPHAGES 65 % Mesothelial Cells 5 % CELLS COUNTED 100 Culture, Body Fluid [[id number]] Collected: 05/26/18 1513 Specimen: Other from Ascites Fluid Updated: 05/26/18 1631 Specimen Description ASCITES FLUID GRAM STAIN STAIN PERFORMED ON CYTOSPIN GRAM STAIN WBC'S SEEN GRAM STAIN NO EPITHELIAL CELLS SEEN GRAM STAIN NO ORGANISMS SEEN CULTURE PENDING pH, Body Fluid [[id number]] Collected: 05/26/18 141 Specimen: Body Fluid from Lung, Right Lower Lobe Updated: 05/26/18 1508 FLUID PH 7.45 Procalcitonin [[id number]] (Abnormal) Collected: 05/26/18 1214 Updated: 05/26/18 1330 PROCALCITONIN 0.56 (H) ng/mL Cardiac Panel [[id number]] (Abnormal) Collected: 05/26/18 1214 Updated: 05/26/18 1312 [...] ng/mL CK-MB Index 2.7 Brain natriuretic peptide [[id number]] (Abnormal) Collected: 05/26/18 1214 Updated: 05/26/18 1254 [...] radiologist report and is used for image [employer] only PROBLEM LIST Active Problems: ESRD on [...] 05/27/18546 Date of Service: 05/27/18543 Status: Signed Physician Executive: Vernell Weston RN (Registered Nurse) End of [...] 05/26/181950 Date of Service: 05/26/181947 Status: Signed Physician Executive: Saundra Hartley, RN (Registered Nurse) Pt complained of some [...] of shift audit complete. George Hartley RN Electronically signed by [facility] Transaction, Provider at 10/13/2018 8:52 PM PDTConver arturo Transaction, Provider Unknown - 05/26/2018 6:05 PM PDT Progress Notes by Jae Gutierres RPH at 05/26/181804 Author: Jae Gutierres RPH Service: Pharmacy Author Type: Pharmacist Filed: 05/26/181804 Date of Service: 05/26/181804 Status: Signed Physician Executive: Jae Gutierres RPH (Pharmacist) Renal Dosing Monitoring: [...] E | | | | | | [place] [address] | | | | | | [phone] | | | | | | | | +--------+---------+ + + + documented as of this encounter Procedures + +--------+ + + + | Procedure Name | Priori | Date/Time | Associated Diagnosis | Comments | | | ty | | | | + +--------+ + + + | EXTERNAL LAB: CBC | Routin | 06/01/2018 | | Results [...] | EXTERNAL LAB: [facility] | Routin | 05/30/2018 | | Results [...] documented in this encounter Results External Lab: CBC (06/01/2018 4:43 AM PDT) + + +---- [...] + + + | RED CELL | 2.95 (L) | 3.7 0 - 5.10 | EXTERNAL | | | COUNT | | M/u L | LAB | | + + +---- + + + | Hgb | 10.7 (L) | 11. 3 - [...] | | | | | | at [facility], [address] | | | | | | [facility], | | | | | | [place] [address] | | | | | |Testing performed at [facility], [address] [facility], [place] [address] | | | | | | | [...] [place], | | | | | | [place], [place] [address] | | | | + + + [...] +---- + + + | Hgb | 10.9 (L) | 11. 3 - [...] | | | | | | at [facility], [address] | | | | | | [facility], | | | | | | [place] [address] | | | | | |Testing performed at [facility], [address] [facility], [place] [address] | | | | | | | [...] | | | | | performed at [facility], [address] | | | | | | [facility] [place], | | | | | | [place] [address] | | | | + + + [...] + +---------+ + + External Lab: CBC (05/30/2018 4:18 AM PDT) + + +---- [...] + + + | RED CELL | 2.91 (L) | 3.7 0 - 5.10 | EXTERNAL | | | COUNT | | M/u L | LAB | | + + +---- + + + | Hgb | 10.7 (L) | 11. 3 - [...] | | | | | | at [facility], [address] | | | | | | [facility], | | | | | | [place] [address] | | | | | |Testing performed at [facility], [address] [facility], [place] [address] | | | | | | | [...] | | | | | performed at [facility], [address] | | | | | | [address] [facility], | | | | | | [place] [address] | | | | + + + [...] | EXTERNAL LAB | | not a humanities professor validated sample type for this method. No reference | | | ranges have been established. Testing performed at [facility], [address] | | | [place] [address] | | + + + + +---------+ [...] EXTERNAL LAB | | is not a humanities professor validated sample type for this method. No | | | reference ranges have been established. Testing performed at [facility], | | | [address] [facility] [place] [address] | | + + + + +---------+ [...] | | space is punctured with an 8-Slovenian thoracentesis catheter. Fluid is | | | [...] the pleural space is punctured with an 8-Slovenian | | thoracentesis catheter. Fluid is aspirated [...] | | Patient | performed at [facility];[address] | | LAB | | | | [address];[place], [place] | | | | | | [address] | | | | + + + [...] | | | | performed at [facility] | | | | | | [address];[place], [place] | | | | | | [address] | | | | + + + [...] + + + | RED CELL | 3.30 (L) | 3.7 0 - 5.10 | EXTERNAL | | | COUNT | | M/u L | LAB | | + + +---- + + + | Hgb | 11.9 | 11. 3 - 15.5 [...] | | | | | | at [facility], [address] | | | | | | [address], | | | | | | [place] [address] | | | | | |Testing performed at [facility], [address] [place] [address] | | | | | | | [...] | | | | | performed at [facility], [address] | | | | | | [place], | | | | | | [place] [address] | | | | + + + [...] | | | | | | [facility];[address] [place] [address] | | | | | | [facility];[place] [address] | | | | + + + [...] at | | | | | | [facility], [address] [facility] | | | | | | [place] | | | | | | [address] | | | | + + + [...] | | | | | performed at [facility], [address] | | | | | | [address] [facility], | | | | | | [place] [address] | | | | + + + [...] | | | | performed at [facility];[address] | | [address];[place], [place] | | | | | | [address] | | | | + + + [...] + + | Historically converted procedure from [facility] environment | EXTERNAL LAB | + + [...] | | | | | | [facility];[address] [facility] | | | | | | [address];[place] [address] | | | | + + + [...] EXTERNAL | | | | performed at L, [address] | | LAB | | | | [address] [place], | | | | | | [place] [address] | | | | + + + [...] + + + | RED CELL | 3.25 (L) | 3.7 0 - 5.10 | EXTERNAL | | | COUNT | | M/u L | LAB | | + + +---- + + + | Hgb | 11.9 | 11. 3 - 15.5 [...] | | | | | | at [facility], [address] | | | | | | [facility], | | | | | | [place] [address] | | | | | |Testing performed at [facility], [address] [place] [address] | | | | | | | [...] | | | | | [place] [address] | | | | + + + [...] | | | QUALITATIVE | performed at [facility], [address] | | LAB | | | | [address], | | | | | | [place] [address] | | | | + + + [...] EXTERNAL | | | | performed at [facility], [address] | uIU/mL | LAB | | | | [place], | | | | | | [place] [address] | | | | + + + [...] | | | | | performed at [facility], [address] | | | | | | [facility], | | | | | | [place] [address] | | | | + + + [...] + + + | ORDERING PHYSICIAN: Aneudy Glass MD PATIENT NAME: | EXTERNAL LAB | | DARA LOUISE GENDER: Alysia : 1995 SPECIMEN(S): | | | A [...] | | | preparation was performed by [facility], [address] [place] [address] | | | [place] [address] (Carpet Layer: Matt Claudio D.O.; | | | CLIA#: [id number]). Professional interpretation was performed by | | | [facility], [facility], [address] [place] [address], | | | [place] [address] (Carpet Layer: Daniel Larson M.D.; | | | CLIA#: [id number]).6 Diagnostician: Marie BROOKS ([facility]) | | | Jewel [employer] Diagnostician: Anahy Da Silva MD Pathologist | [...] at | | | | | | [facility], [address] | | | | | | [place] | | | | | | [address] | | | | + + + [...] valve is normal. 18. | | | Zmfn-es-wreqhvro eccentric mitral regurgitation is present. 19. | [...] valve is normal. 18. | | | Mfup-eq-alvmtsjl eccentric mitral regurgitation is present. 19. | [...] is | | | normal. Mitral Valve: Qcwn-cl-axvahrkg eccentric mitral regurgitation | | | is [...] TR Vmax: 2.74 m/s | | | Wallcovering Texturer: MOO Authenticated by: Robel Yusuf MD Report | | | Date/Time: 05-27-2018 13:59:57 | | + + + + + | Procedure Note | + + | Sonido Steele Conversion - 10/16/2018 9:43 PM PDT Patient Name: Anders LOUISE of | | : 1995 Performing Physician: Robel Yusuf | | MD INDICATIONS S | | OB CONCLUSIONS 1. [...] aortic stenosis.17. The mitral valve is normal.18. Fzud-ri-koxtmkhd | | eccentric mitral regurgitation is present.19. [...] | | arch are normal.26. No mass zsuasbylmx20. No clot visualized FINDINGS--------ECG | | rhythm: [...] mitral valve is normal.Mitral Valve: | | Pjmr-wz-mwusgewd eccentric mitral regurgitation is present.Tricuspid Valve: Severe [...] mlLAESV Index (A-L): 30.43 ml/m2LAAs A2C: 20.97 lh2SHITC | | A-L A2C: 65.71 mlLALs A2C: 5.68 cmLAAs A4C: 19.94 zx3QCBVP A-L A4C: 60.20 mlLALs | | A4C: 5.60 cmTAPSE: 1.58 cmHR: 79.62 BPMAV maxP.06 mmHgAV meanP.71 | | mmHgAV Vmax: 1.23 m/Elizabeth Vmean: 0.92 m/Elizabeth VTI: 20.07 cmAVA Vmax: 1.74 cm2AVA | | (VTI): 1.93 oz3MUQZ Vmax: 0.00 cm2/m2AVAI (VTI): 0.00 cm2/m2LVOT maxP.22 [...] maxP.08 | | mmHgTR Vmax: 2.74 m/s Wallcovering Texturer: Brodyted by: Robel Palacios | | Date/Time: 05-27-2018 13:59:57 IMPRESSION: 1. [...] The mitral valve is | | normal.18. Hush-wh-uwgnnzry eccentric mitral regurgitation is present.19. Severe | [...] and aortic arch are normal.26. No mass ftihjaqyoe03. No clot visualized | |LVPWd: 1.27 cm [...] |TR Vmax: 2.74 m/s | | | |Wallcovering Texturer: MOO | |Authenticated by: Robel Yusuf MD | [...] The mitral valve is normal. | |18. Auok-oa-pakkbcmo eccentric mitral regurgitation is present. | |19. [...] + + + | RED CELL | 3.48 (L) | 3.70 - 5.10 | EXTERNAL | | | COUNT | | M/uL | LAB | | + + + + + + | Hgb | 12.5 | 11.3 - 15.5 | [...] | LAB | | | | [facility];[address] | | | | | | [place] [address] | | | | + + + [...] EXTERNAL | | | | performed at [facility], [address] | | LAB | | | | [place], | | | | | | [place] [address] | | | | + + + [...] | LAB | | | | [facility] [address] | | | | | | [address];[place] [address] | | | | + + + [...] EXTERNAL | | | | performed at [facility], [address] | | LAB | | | | Opal [address], | | | | | | [place] [address] | | | | + + + [...] | | | | | | MDRD IDID traceable | | | | | | equation.Testing | | | | | | performed at [facility], [address] | | | | | | [facility], | | | | | | [place] [address] | | | | + + + [...] Methodology | | | Testing performed at [facility], [address] [place], [place] | | | [address] | | + + + + +---------+ [...] NEGATIVE Testing | | | performed at [facility];[address] [place] [address];[place] [address] | | + + + + +---------+ [...] | | | | | | at [facility];[address] [place] [address] | | | | | | [facility];[place] [address] | | | | + + + [...] | | | emphysema. Signed by: MD Lewis John Sign Date/Time: 05/26/2018 4:55 | | | [...] AT 1702: | | | PREVIOUSLY REPORTED <[id number] TOTAL NUCLEATED CELLS | | | 253 CORRECTED RESULTS CALLED TO DR. GLASS IN ED AT | | | 1705 BY LGJ CORRECTED ON 05/26 AT 1702: PREVIOUSLY REPORTED 374 | | | NEUTROPHILS 22 | | | LYMPHOCYTES 8 | | | MONOCYTES/MACROPHAGES 65 Mesothelial | | | Cells 5 CELLS COUNTED | | | 100 Testing performed at [facility];[address] | | | [address] [facility];[place] [address] | | + + + + +---------+ [...] | EXTERNAL LAB | | not a humanities professor validated sample type for this method. No reference | | | ranges have been established. Testing performed at [facility], [address] | | | [place] [address] FLUID TP SOURCE | | | PLEURAL FLUID Testing performed at [facility];[address] | | | [address] [address] | | + + + + +---------+ [...] | EXTERNAL LAB | | not a humanities professor validated sample type for this method. No | | | reference ranges have been established. Testing performed at [facility], | | | [address] [place] [address] | | + + + + +---------+ [...] EXTERNAL LAB | | Testing performed at [facility];[address] [place] [address];[place] [address] | | + + + + +---------+ [...] | | | | | | at [facility];[address] [address] | | | | | | [facility];[place] [address] | | | | + + + [...] | | | | | | at [facility];[address] [place] [address] | | | | | | Bl;[place] [address] | | | | + + + [...] + + + + + -+ | RED CELL | 3.32 (L) | 3.70 - 5.10 | EXTERNAL | | | COUNT | | M/uL | LAB | | + + + + + -+ | Hgb | 12.1 | 11.3 - 15.5 | [...] | LAB | | | | [facility];[address] | | | | | | [place] [address] | | | | + + + [...] Note | + + | Sonido Steele Anderson - 10/16/2018 9:43 PM PDT This is [...]
--- OUTSIDE RECORDS SUMMARY | ~2019-03-12 | XMS | Encounter Summary ---
Demographics + + + | Address | [address] | | | [place] [address] | + + + | Home Phone [...] | | | | | [place] [address] | | + + + + + | Thania Mallory | ECON | [address] | | | | | [place] [address] | | + + + + + | Deidra Weldon | ECON | [address] | | | | | [place] | | | | | [address] | | + + + + + Care Team Providers + +------+ + | Care Pocket Creaser Name | Role | Phone | + [...] updated) | | | | Caro Chan [place], | [place], [place] | | | | | [place] [address] | [address] | | | | | [phone] | [phone] | | | | | | | [...] Denise | | | | | | [place] | | | | | | [address] | | | | | | [phone] | | | | | | | | +--------+ + + + + documented as of this encounter Visit Diagnoses Not on filedocumented in this encounter"
--- OUTSIDE RECORDS SUMMARY | ~2019-03-12 | XMS | Encounter Summary ---
Demographics + + + | Address | [address] | | | [place] [address] | + + + | Home Phone [...] | | | | | [place] [address] | | + + + + + | Thania Mallory | ECON | [address] | | | | | [place] [address] | | + + + + + | Deidra Weldon | ECON | [address] | | | | | [place] | | | | | [address] | | + + + + + Care Team Providers + +------+ + | Care Lead Loader Name | Role | Phone | [...] Evaluation | | | | Caro Chan [place], | [place], [place] | (pre-listing | | | | [place] [address] | [address] | pediatric [place] [address] | | | | [phone] | | update) | +--------+ + + [...] Denise | | | | | | [place] | | | | | | [address] | | | | | | [phone] | | | | | | | | +--------+ + + + + documented as of this encounter Visit Diagnoses Not on filedocumented in this encounter"
--- OUTSIDE RECORDS SUMMARY | ~2019-03-12 | XMS | Encounter Summary ---
Demographics + + + | Address | [address] | | | [place] [address] | + + + | Home Phone [...] | | | | | [place] [address] | | + + + + + | Thania Mallory | ECON | [address] | | | | | [place] [address] | | + + + + + | Deidra Weldon | ECON | [address] | | | | | [place] | | | | | [address] | | + + + + + Care Team Providers + +------+ + | Care Assistant Surveyor Name | Role | Phone | + [...] | | [address] | [facility] | | | | | [address] [place], | [place], [place] | | | | | [place] [address] | [address] | | | | | [phone] | | | +--------+ + + + [...] Denise | | | | | | [place], [place] | | | | | | [address] | | | | | | [phone] | | | | | | | [...]
--- OUTSIDE RECORDS SUMMARY | ~2019-03-12 | XMS | Encounter Summary ---
Demographics + + + | Address | [address] | | | [place] [address] | + + + | Home Phone [...] + | Author | [facility] | | | and [place] | + + + | Organization | [facility] | | | and [...] Team Providers + +------+ + | Care Thermal Molder Name | Role | Phone | + +------+ + PCP | Unavailable | + +------+ + Encounter Details +--------+ + + + + | Date | Type | Department | Care Team | Description | +--------+ + + + + | 08/31/ | Hospital | [facility] | Conversion | ESRD (end stage | | 2016 | Encounter | CENTER CV INTRA OP | Transaction, | renal disease) (HCC) | | | | [address] | Provider Unknown | | | | | [place], [place] | | | | | | [address] | (Fax) | | | | | [phone] | Doyle Diaz MD | | +--------+ [...] E | | | | | | [place] [address] | | | | | | [phone] | | | | | | | [...] | 2. IR ANGIOPLASTY AV FISTULA VENOUS SECOND COOK AND BAKER: Doyle Diaz MD | | | CONSENT: [...] | | Over a guidewire, a 4 Palestinian angled catheter was advanced and | | [...] | ANGIOPLASTY: Over a guidewire, a 6 Palestinian sheath was advanced | | | and [...] IR ANGIOPLASTY AV | | FISTULA VENOUS SECOND COOK AND BAKER: Doyle Diaz MD CONSENT: The risks, benefits [...] micropuncture needle. Over a guidewire, a 4 Palestinian angled catheter was | | advanced and [...] appears patent. ANGIOPLASTY:Over a guidewire, a 6 Palestinian sheath was | | advanced and positioned [...] AM | |Over a guidewire, a 6 Palestinian sheath was advanced and positioned into the [...] | 2. IR ANGIOPLASTY AV FISTULA VENOUS SECOND COOK AND BAKER: Doyle Diaz MD | | | CONSENT: [...] | | Over a guidewire, a 4 Palestinian angled catheter was advanced and | | [...] | ANGIOPLASTY: Over a guidewire, a 6 Palestinian sheath was advanced | | | and [...] IR ANGIOPLASTY AV | | FISTULA VENOUS SECOND COOK AND BAKER: Doyle Diaz MD CONSENT: The risks, benefits [...] micropuncture needle. Over a guidewire, a 4 Palestinian angled catheter was | | advanced and [...] appears patent. ANGIOPLASTY:Over a guidewire, a 6 Palestinian sheath was | | advanced and positioned [...] AM | |Over a guidewire, a 6 Palestinian sheath was advanced and positioned into the [...] | | | | performed at [facility];[address] | mmol/L | LAB | | | | [address];[place], [place] | | | | | | [address] | | | | + + + [...]
--- OUTSIDE RECORDS SUMMARY | ~2019-03-12 | XMS | Encounter Summary ---
Demographics + + + | Address | [address] | | | [place] [address] | + + + | Home Phone [...] Author | [facility] | | | and Joesphana | + + + | Organization | [facility] | | | and [place]ana | + + + | Address | Unknown | + + + | Phone | Unavailable | + + + Support + + +---------+ + | Name | Relationship | Address | Phone | + + +---------+ + | Thaina Mallory | ECON | Unknown | | + + +---------+ + | Saundra Mallory | ECON | Unknown | | + + +---------+ + Care Team Providers + +------+ + | Care Merchant Miller Name | Role | Phone | + +------+ + PCP | Unavailable | + +------+ + Encounter Details +--------+ + + + + | Date | Type | Department | Care Team | Description | +--------+ + + + + | 02/12/ | Hospital | [facility] | Nereida Roberson | | | 2008 | Encounter | HOSPITAL EMERGENCY | MD [address] | | | | | [place] [address] [place] | | | | | [address] [place], [place] | [place] [address] | | | | | [address] | [phone] | | | | | [phone] | | | +--------+ + + + [...] [place] | | | | | | [place] [address] | | | | | | [phone] | | | | | | | | +--------+---------+ + + + documented as of this encounter Visit Diagnoses Not on filedocumented in this encounter"
--- OUTSIDE RECORDS SUMMARY | ~2019-03-12 | XMS | Encounter Summary ---
Demographics + + + | Address | [address] | | | [place] [address] | + + + | Home Phone [...] | | | | | [place] [address] | | + + + + + | Thania Mallory | ECON | [address] | | | | | [place] [address] | | + + + + + | Deidra Weldon | ECON | [address] | | | | | [place] | | | | | [address] | | + + + + + Care Team Providers + +------+ + | Care Laborer Vegetable Farm Name | Role | Phone | + [...] ANNALISA Griffin | [facility] | | | | | [place], | [place], [place] | | | | | [place] [address] | [address] | | | | | [phone] | | | +--------+ + + + [...] Denise | | | | | | [place], [place] | | | | | | [address] | | | | | | [phone] | | | | | | | | +--------+ + + + + documented as of this encounter Visit Diagnoses + + | Diagnosis | + + | 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
--- OUTSIDE RECORDS SUMMARY | ~2019-03-12 | XMS | Encounter Summary ---
Demographics + + + | Address | [address] | | | [place] [address] | + + + | Home Phone [...] | | | | | [place] [address] | | + + + + + | Thania Mallory | ECON | [address] | | | | | [place] [address] | | + + + + + | Deidra Weldon | ECON | [address] | | | | | [place] | | | | | [address] | | + + + + + Care Team Providers + +------+ + | Care Software Developer Consultant Name | Role | Phone | [...] | Nephrology at | MD Emanuel [address] [facility] | | | | | [place] | [facility] | | | | | [facility] | [place], [place] | | | | | [address] | [address] | | | | | Mailcode: DCH7 | [phone] | | | | | Alexander | | | | | | [place], [place] | | | | | | [address] | | | | | | [phone] | | | +--------+ + + + [...] Ave | | | | | | [place], [place] | | | | | | [address] | | | | | | [phone] | | | | | | | [...]
--- OUTSIDE RECORDS SUMMARY | ~2019-03-12 | XMS | Encounter Summary ---
Demographics + + + | Address | [address] | | | [place] [address] | + + + | Home Phone [...] + + | Author | [facility] | | | and [place]ana | + + + | Organization | [facility] | | | and Josephana [...] Team Providers + +------+ + | Care Blade Boner Name | Role | Phone | + +------+ + PCP | Unavailable | + +------+ + Encounter Details +--------+ + + + + | Date | Type | Department | Care Team | Description | +--------+ + + + + | 07/10/ | Hospital | [facility] | | | | 2008 - | Encounter | MED CTR OP REHAB | | | | | | [address] | | | | 08/03/ | | [place] [address] | | | | 2008 | | [phone] | | | +--------+ + + + [...] DAVIDSON | | | | | | [place] [address] | | | | | | [phone] | | | | | | | | +--------+---------+ + + + documented as of this encounter Visit Diagnoses Not on filedocumented in this encounter"
--- OUTSIDE RECORDS SUMMARY | ~2019-03-12 | XMS | Encounter Summary ---
Demographics + + + | Address | [address] | | | [place] [address] | + + + | Home Phone [...] | | | | | [place] [address] | | + + + + + | Thania Mallory | ECON | [address] | | | | | [place] [address] | | + + + + + | Deidra Weldon | ECON | [address] | | | | | [place] | | | | | [address] | | + + + + + Care Team Providers + +------+ + | Care Grinding Room Supervisor Name | Role | Phone | [...] Services | RN [address] | (Immunizations) | | | | [address] | [facility] | | | | | [facility], | [place], [place] | | | | | [place] [address] | [address] | | | | | [phone] | | | +--------+ + + + [...] Denise | | | | | | [place], [place] | | | | | | [address] | | | | | | [phone] | | | | | | | | +--------+ + + + + documented as of this encounter Visit Diagnoses Not on filedocumented in this encounter"
--- OUTSIDE RECORDS SUMMARY | ~2019-03-12 | XMS | Encounter Summary ---
Demographics + + + | Address | [address] | | | [place] [address] | + + + | Home Phone | | + + + | Preferred Language | Unknown | + + + | Marital Status | Single | + + + | Mandaeism Affiliation | Unknown | + + + | Race | Unknown | + + + | Ethnic Group | Unknown | + + + Author + + + | Author | [facility] | | | and Josephana | + + + | Organization | [facility] | | [...] Team Providers + +------+ + | Care Geomatics Professor Name | Role | Phone | + +------+ + PCP | Unavailable | + +------+ + Reason for Referral Consultation (Routine) +--------+ + + + + + | Status | Reason | Specialty | Diagnoses / | Referred By | Referred To | | | | | Procedures | Contact | Contact | +--------+ + + + + + | Closed | Specialty | Surgery / | Diagnoses | Stroemel, | Field, | | | Services | General | ESRD (end | Jorje Obrien, | Blake I, | | | Required | Surgery | stage renal | | [address] | | | | | disease) | Jaciel Gotti | [address] | | | | | ([facility]) | [address] [place] | [place], | | | | | | [place], [place] | [place] [address] | | | | | | [address] | Phone: | | | | | | Phone: | [phone] | | | | | | [phone] | Fax: | | | | | | Fax: | [phone] | | | | | | [phone] | | +--------+ + + + + + Encounter Details +--------+ + + + + | Date | Type | Department | Care Team | Description | +--------+ + + + + | 02/03/ | Orders Only | [facility] [place] | Jorje Camp | ESRD (end stage | | 2013 | | NEPHROLOGY [address] | M, DO | renal disease) ([facility]) | | | | [address] | [place] | (Primary Dx) | | | | [place], [place] | [place], [place] | | | | | [address] | [address] | | | | | [phone] | | | +--------+ + + + [...] DAVIDSON | | | | | | [place] [address] | | | | | | [phone] | | | | | | | | +--------+---------+ + + + + + +--------+ + + | Name | Type | Priori | Associated Diagnoses | Order Schedule | | | | ty | | | + + +--------+ + + | * [facility] | Outpatient | Routin | ESRD (end stage | Ordered: 02/03/2014 | | Surgery - AMB | Referral | e | renal disease) ([facility]) | | | Referral | | | | | + + +--------+ + + documented as of this encounter Visit Diagnoses + + | Diagnosis | + + | ESRD (end stage renal disease) ([facility]) - Primary End stage renal disease | + + documented in this encounter"
--- OUTSIDE RECORDS SUMMARY | ~2019-03-12 | XMS | Encounter Summary ---
Demographics + + + | Address | [address] | | | [place] [address] | + + + | Home Phone [...] | | | | | [place] [address] | | + + + + + | Thania Mallory | ECON | [address] | | | | | [place] [address] | | + + + + + | Deidra Weldon | ECON | [address] | | | | | [place] | | | | | [address] | | + + + + + Care Team Providers + +------+ + | Care Car Dumper Operator Name | Role | Phone | [...] | Nephrology at | MD Emanuel [address] [facility] | | | | | [place] | [facility] | | | | | [facility] | [place], [place] | | | | | [address] [facility] | [address] | | | | | Mailcode: DCAnna | [phone] | | | | | Alexander | | | | | | [place], [place] | | | | | | [address] | | | | | | [phone] | | | +--------+--------+ + + + [...] Denise | | | | | | [place], [place] | | | | | | [address] | | | | | | [phone] | | | | | | | | +--------+ + + + + documented as of this encounter Visit Diagnoses Not on filedocumented in this encounter"
--- OUTSIDE RECORDS SUMMARY | ~2019-03-12 | XMS | Encounter Summary ---
Demographics + + + | Address | [address] | | | [place] [address] | + + + | Home Phone [...] + | Author | [facility] | | | and [place]ana | + + + | Organization | [facility] | | | and [...] Team Providers + +------+ + | Care Utility Tractor Operator Name | Role | Phone | [...] | | [address] | [place] | | | | | [place], [place] | [place], [place] | | | | | [address] | [address] | | | | | [phone] | | | +--------+--------+ + + + [...] | | | | | [place] [address] | | | | | | [phone] | | | | | | | | +--------+---------+ + + + documented as of this encounter Visit Diagnoses Not on filedocumented in this encounter"
--- OUTSIDE RECORDS SUMMARY | ~2019-03-12 | XMS | Encounter Summary ---
Demographics + + + | Address | [address] | | | [place] [address] | + + + | Home Phone [...] | | | | | [place] [address] | | + + + + + | Thania Mallory | ECON | [address] | | | | | [place] [address] | | + + + + + | Deidra Weldon | ECON | [address] | | | | | [place] | | | | | [address] | | + + + + + Care Team Providers + +------+ + | Care Boiler Tube Reamer Name | Role | Phone | + [...] with | | | | Caro Chan [place], | [place], [place] | pt's dad) | | | | [place] [address] | [address] | | | | | [phone] | | | +--------+ + + + [...] [place] | | | | | | [address] | | | | | | [phone] | | | | | | | | +--------+ + + + + documented as of this encounter Visit Diagnoses Not on filedocumented in this encounter"
--- OUTSIDE RECORDS SUMMARY | ~2019-03-12 | XMS | Encounter Summary ---
Demographics + + + | Address | [address] | | | [place] [address] | + + + | Home Phone [...] | | | | | [place] [address] | | + + + + + | Tahnia Mallory | ECON | [address] | | | | | [place] [address] | | + + + + + | Deidra Weldon | ECON | [address] | | | | | [place] | | | | | [address] | | + + + + + Care Team Providers + +------+ + | Care Piano Regulator Name | Role | Phone | + [...] Nephrology at | RN [address] [facility] | | | | | [place] | [facility] | | | | | [facility] | [place], [place] | | | | | [address] [place] [address] Dr | [address] | | | | | Mailcode: DCH7 | | | | | | Alexander | | | | | | [place], [place] | | | | | | [address] | | | | | | [phone] | | | +--------+ + + + [...] Denise | | | | | | [place], [place] | | | | | | [address] | | | | | | [phone] | | | | | | | | +--------+ + + + + documented as of this encounter Visit Diagnoses + + | Diagnosis | + + | 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
--- OUTSIDE RECORDS SUMMARY | ~2019-03-12 | XMS | Encounter Summary ---
Demographics + + + | Address | [address] | | | [place] [address] | + + + | Home Phone [...] | | | | | [place] [address] | | + + + + + | Thania Mallory | ECON | [address] | | | | | [place] [address] | | + + + + + | Deidra Weldon | ECON | [address] | | | | | [place] | | | | | [address] | | + + + + + Care Team Providers + +------+ + | Care Organic Gardening Teacher Name | Role | Phone | [...] Rd | | | | | | [place], [place] | | | | | | [address] | | | +--------+ + + + [...] Denise | | | | | | [place], [place] | | | | | | [address] | | | | | | [phone] | | | | | | | | +--------+ + + + + documented as of this encounter Visit Diagnoses Not on [facility] in this encounter"
--- OUTSIDE RECORDS SUMMARY | ~2019-03-12 | XMS | Encounter Summary ---
Demographics + + + | Address | [address] | | | [place] [address] | + + + | Home Phone [...] | | | | | [place] [address] | | + + + + + | Thania Mallory | ECON | [address] | | | | | [place] [address] | | + + + + + | Deidra Weldon | ECON | [address] | | | | | [place] | | | | | [address] | | + + + + + Care Team Providers + +------+ + | Care Motorboat Mechanic Name | Role | Phone | [...] Family sheet & | | | | [address] | [address] | crossmatch report) | | | | Loop Mailcode: | [place], [place] | | | | | [address] | [address] | | | | | [address] | [phone] | | | | | [place], [place] | | | | | | [address] | | | | | | [phone] | | | +--------+ + + + [...] Denise | | | | | | [place], [place] | | | | | | [address] | | | | | | [phone] | | | | | | | | +--------+ + + + + documented as of this encounter Visit Diagnoses Not on filedocumented in this encounter"
--- OUTSIDE RECORDS SUMMARY | ~2019-03-12 | XMS | Encounter Summary ---
Demographics + + + | Address | [address] | | | [place] [address] | + + + | Home Phone [...] | | | | | [place] [address] | | + + + + + | Thania Mallory | ECON | [address] | | | | | [place] [address] | | + + + + + | Deidra Louise | ECON | [address] | | | | | [place] | | | | | [address] | | + + + + + Care Team Providers + +------+ + | Care Ski Molder Name | Role | Phone | [...] | | | | (HCC) [facility] | Elias | [address] | | | | | (Amelie | [address] | Mailcode: | | | | | nlein | [place], [place] | [place] | | | | | purpura) | [address] | [place] | | | | | nephritis | Phone: | [place], [place] | | | | | (HCC) | [phone] | [address] | | | | | Hemodialysis | Fax: | Phone: | | | | | status | [phone] | [phone] | | | | | ([facility]) | | Fax: | | | | | Chronic | | [phone] | | | | | kidney | | | | | | | disease, | | | | | | | stage V | | | | | | | ([facility]) | | | | | [...] Telephone | Clinical | Kelsi Martinez, | Transplant | | 2014 | | Transplant Services | RN [address] | Appointment | | | | [address] | [facility] | | | | | [facility], | [place], [place] | | | | | [place] [address] | [address] | | | | | [phone] | | | +--------+ + + + [...] Denise | | | | | | [place], [place] | | | | | | [address] | | | | | | [phone] | | | | | | | [...] | | | | | ([facility]) Chronic | | | | | | kidney disease, | | | | | | stage V ([facility]) | | + +------+--------+ + + documented [...] the | | | | PST | ([facility] | results section. | | | | [...] BSA | | | | | | (ECONOMY Z | | | | | | [...] Interface, Cardiology Results - 01/20/2015 2:35 PM [facility] Echocardiography Laboratory | | [address] | | [place] [address] | | ; | | [id number] | | | | Transthoracic Echocardiogram Report | | | | | | NAME: DARA LOUISE Study Date: 01/20/2015 1:18:29 PM | | Order #: [id number] ACC #: [id number] | | | | | | : [...] on 01/20/2015 at 2:35:17 PM | | Edger Automatic: [address] | | | | | | cc: | | | | | | Modes utilized | | TTE 53335; Spectral Doppler 34425; Color flow Doppler 65408; | | | | | | | | Final | + + + + + + + | Performing | Address | City/State/Zipcode | Phone Number | | Organization | | | | + + + + + | [facility] | [address] | [place], [place] | | | CARDIOLOGY | [address] | [address] | | + + + + + [...] | + + + + + | [facility] | [address] | [place] [address] | | | SERVICES, SPECIAL | PARK [...] 12-100,000,000 IU/mL These results are most | [facility] | | likely suggestive of either the [...] + + + | [facility] | [address] | [place] [address] | | | DIAGNOSTIC | [address] [...] + | [facility] - | [address] | [place] [address] | | | [place] | | | | + + + [...] + | [facility] - | [address] | [place] [address] | | | [place] | | | [...] + | [facility] - | [address] | [place] [address] | | | [place] | | | [...] + | [facility] - | [address] | [place] [address] | | | [place] | | | | + + + [...] by | | | | | | [address] | | | | | | [address]ippa Drew, [facility],[place] | | | | | | [address] | | | | | | [phone].[email or web address]. | | | | | | Faisal [...] [facility] | [address] | [place], [place] | | | UNIV PTH - INTFC | | [address] | | + + + + + [...] + + + + | [place] [facility] - | [address] | [place] [address] | | | [place] | | | [...] by | | | | | | [address] | | | | | | [facility] | | | | | | [address] | | | | | | [phone].FinanzChecklab. | | | | | | Faisal [...] + + | [facility] | [address] | [place], [place] | | | UNIV PTH - INTFC | | [address] | | + + + + + [...] [facility] | [address] | [place] [address] | | | SERVICES, CORE | PARK [...] + + + + + | [facility] | [address] | [place] [address] | | | SERVICES, CORE | PARK [...] | + + + + + | [facility] | [address] | [place] [address] | | | SERVICES, CORE | PARK [...] | + + + + + | [facility] | [address] | [place] [address] | | | SERVICES, CORE | LONG [...] [facility] | [address] | [place] [address] | | | HOMERO LAN | LONG [...] | | | LABORATORY | | | OMANI | | | SERVICES, | | | [...] | + + + + + | [facility] | [address] | [place] [address] | | | SERVICES, CORE | LONG [...]
--- OUTSIDE RECORDS SUMMARY | ~2019-03-12 | XMS | Encounter Summary ---
Demographics + + + | Address | [address] | | | [place] [address] | + + + | Home Phone [...] | Author | [facility] | | | and Josephana | + + + | Organization | [facility] | [...] Team Providers + +------+ + | Care Customer Support Professional Name | Role | Phone | + [...] NEPHROLOGY [address] | M, DO [address] | | | | | [address] | [place] | | | | | [place], [place] | [place], [place] | | | | | [address] | [address] | | | | | [phone] | | | +--------+ + + + [...] Dr. Camp's progress note from 12/30/[address] [facility] (fx: [phone]) on 01/20/14. documented in this encounter Plan [...] DAV[address]SON | | | | | | [place] [address] | | | | | | [phone] | | | | | | | | +--------+---------+ + + + documented as of this encounter Visit Diagnoses Not on filedocumented in this encounter"
--- OUTSIDE RECORDS SUMMARY | ~2019-03-12 | XMS | Encounter Summary ---
Demographics + + + | Address | [address] | | | [place] [address] | + + + | Home Phone [...] | | | | | [place] [address] | | + + + + + | Thania Mallory | ECON | [address] | | | | | [place] [address] | | + + + + + | Deidra Weldon | ECON | [address] | | | | | [place] | | | | | [address] | | + + + + + Care Team Providers + +------+ + | Care Contract Modeler Name | Role | Phone | + [...] | | | MD [address] | [facility] | | | | | | Keven | Mailcode: | | | | | | Hospital | [facility] | | | | | | [address] | [address] | | | | | | [address] | [place], [place] | | | | | | [place] | [address] | | | | | | [place] | Phone: | | | | | | [address] | [phone] | | | | | | Phone: | | | | | | | [phone] | | | | | | | Fax: | | | | | | | [phone] | | +--------+--------+ + + + + Encounter Details +--------+---------+ + + + | Date | Type | Department | Care Team | Description | +--------+---------+ + + + | 01/20/ | Office | Specialty Clinics | Sudhakar Joy | [facility] | | 2014 | Visit | at [facility] [address] MD [address] [facility] | (David | | | | [place] Mailcode: | [address] | purpura) nephritis | | | | [facility] [address] | [place], [place] | (Primary Dx); | | | | [place], [place] | [address] | Allergic purpura- | | | | [address] | [phone] | MEDICARE 0977; | | | | [phone] | | Anemia of chronic | | [...] [address] Mail code [facility], [place] [address] documented in this encounter Plan of Treatment +--------+ + + + + | Date | Type | Specialty | Care Team | Description | +--------+ + + + + | 05/04/ | Hospital | Adult Acute Care | El Starr MD | | | 2022 | Encounter | | [address] | | | | | | [place], [place] | | | | | | [address] | | | | | | [phone] | | | | | | | [...]
--- OUTSIDE RECORDS SUMMARY | ~2019-03-12 | XMS | Encounter Summary ---
Demographics + + + | Address | [address] | | | [place] [address] | + + + | Home Phone [...] | | | | | [place] [address] | | + + + + + | Thania Mallory | ECON | [address] | | | | | [place] [address] | | + + + + + | Deidra Weldon | ECON | [address] | | | | | [place] | | | | | [address] | | + + + + + Care Team Providers + +------+ + | Care Advanced Manufacturing Consultant Name | Role | Phone | [...] 07/06/ | Telephone | Clinical | Kelsi Martinez, | Transplant Status | | 2017 | | Transplant Services | RN [address] | Change (Close | | | | [address] Elias | [facility] | referral) | | | | [facility], | [place], [place] | | | | | [place] [address] | [address] | | | | | [phone] | | | +--------+ + + + [...] [place] | | | | | | [address] | | | | | | [phone] | | | | | | | | +--------+ + + + + documented as of this encounter Visit Diagnoses Not on filedocumented in this encounter"
--- OUTSIDE RECORDS SUMMARY | ~2019-03-12 | XMS | Encounter Summary ---
Demographics + + + | Address | [address] | | | [place] [address] | + + + | Home Phone [...] | | | | | [place] [address] | | + + + + + | Thania Mallory | ECON | [address] | | | | | [place] [address] | | + + + + + | Deidra Weldon | ECON | [address] | | | | | [place] | | | | | [address] | | + + + + + Care Team Providers + +------+ + | Care Geriatric Nursing Assistant Name | Role | Phone | [...] | on | Transplant Services | [address] | (Education class) | | | | [address] | [facility] | | | | | [facility], | [place], [place] | | | | | [place] [address] | [address] | | | | | [phone] | | | +--------+ + + + [...] Denise | | | | | | [place] | | | | | | [address] | | | | | | [phone] | | | | | | | | +--------+ + + + + documented as of this encounter Visit Diagnoses Not on filedocumented in this encounter"
--- OUTSIDE RECORDS SUMMARY | ~2019-03-12 | XMS | Encounter Summary ---
Demographics + + + | Address | [address] | | | [place] [address] | + + + | Home Phone [...] + + + | Author | [facility] | | | and Josephana | + + + | Organization | [facility] | | | and [...] Providers + +------+ + | Care Manager Floral Name | Role | Phone | + +------+ + PCP | Unavailable | + +------+ + Encounter Details +--------+ + + + + | Date | Type | Department | Care Team | Description | +--------+ + + + + | 06/11/ | Hospital | [facility] | | | | 2008 - | Encounter | MED CTR OP REHAB | | | | | | [address] | | | | 07/03/ | | [place] [address] | | | | 2008 | | [phone] | | | +--------+ + + + [...] DAV[address]SON | | | | | | [place] [address] | | | | | | [phone] | | | | | | | | +--------+---------+ + + + documented as of this encounter Visit Diagnoses Not on filedocumented in this encounter"
--- OUTSIDE RECORDS SUMMARY | ~2019-03-12 | XMS | Encounter Summary ---
Demographics + + + | Address | [address] | | | [place] [address] | + + + | Home Phone [...] + | Author | [facility] | | | and Josephana | + + + | Organization | [facility] | [...] Team Providers + +------+ + | Care Securities Supervisor Name | Role | Phone | [...] | stage renal | [address] | [address] [place] [address] | | | | | disease) | [address] | [place] | | | | | ([facility]) | [address] | [address] | | | | | Anemia in | [place], [place] | [place] | | | | | ESRD | [address] | [address] Phone: | | | | | (end-stage | Phone: | [phone] | | | | | renal | [phone] | Fax: | | | | | disease) | Fax: | [phone] | | | | | ([facility]) | [phone] | | | | | | Procedures | | | | | | | [place] OFFICE | | | | | | [...] M, DO [address] | renal disease) ([facility]) | | | | [address] | [place], [address] | (Primary Dx) | | | | [place], [place] | [place], [place] | | | | | [address] | [address] | | | | | [phone] | | | +--------+ + + + [...] DAV[place]SON | | | | | | [place] [address] | | | | | | [phone] | | | | | | | | +--------+---------+ + + + documented as of this encounter Visit Diagnoses + + | Diagnosis | + + | ESRD (end stage renal disease) (HCC) - Primary End stage renal disease | + + documented in this encounter"
--- OUTSIDE RECORDS SUMMARY | ~2019-03-12 | XMS | Encounter Summary ---
Demographics + + + | Address | [address] | | | [place] [address] | + + + | Home Phone [...] | Author | [facility] | | | and Josephana | + + + | Organization | [facility] | [...] Team Providers + +------+ + | Care Passport Support Manager Name | Role | Phone | + +------+ + PCP | Unavailable | + +------+ + Reason for Visit + + + | Reason | Comments | + + + | Appointment | Post Op | + + + Encounter Details +--------+ + + + + | Date | Type | Department | Care Team | Description | +--------+ + + + + | 02/28/ | Telephone | [facility] | Blake Chavarria | Appointment (Post | | 2013 | | SURGERY [address] | MD Antonieta, FACS [address] | Op) | | | | [place], [place] | [address] | | | | | [address] | [place] [address] | | | | | [phone] | [phone] | | | | | | | [...] DAV[place]SON | | | | | | [place] [address] | | | | | | [phone] | | | | | | | | +--------+---------+ + + + documented as of this encounter Visit Diagnoses Not on filedocumented in this encounter"
--- OUTSIDE RECORDS SUMMARY | ~2019-03-12 | XMS | Encounter Summary ---
Demographics + + + | Address | [address] | | | [place] [address] | + + + | Home Phone [...] | Author | [facility] | | | and Josephana | + + + | Organization | [facility] | | [...] Providers + +------+ + | Care Leasing Associate Name | Role | Phone | [...] | | [address] | [place], [address] | | | | | [place], [place] | [place], [place] | | | | | [address] | [address] | | | | | [phone] | | | +--------+ + + + [...] DAVIDSON | | | | | | [place] [address] | | | | | | [phone] | | | | | | | | +--------+---------+ + + + documented as of this encounter Visit Diagnoses Not on filedocumented in this encounter"
--- OUTSIDE RECORDS SUMMARY | ~2019-03-12 | XMS | Encounter Summary ---
Demographics + + + | Address | [address] | | | [place] [address] | + + + | Home Phone [...] | | | | | [place] [address] | | + + + + + | Thania Mallory | ECON | [address] | | | | | [place] [address] | | + + + + + | Deidra Weldon | ECON | [address] | | | | | [place] | | | | | [address] | | + + + + + Care Team Providers + +------+ + | Care Teacher Vocational Training Name | Role | Phone | + +------+ + | Jonathan Alonso MD | PCP | | + +------+ + Encounter Details +--------+------+ + + + | Date | Type | Department | Care Team | Description | +--------+------+ + + + | 01/20/ | Lab | [facility] at [facility] | | 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 [address] | | MEDICARE 0968; [facility] | | | | [address] [place], | | ([place] | | | | [place] [address]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; | | | | [phone] | | Hemodialysis status | | | | | | (HCC); Chronic | | | | | | kidney disease, | | | | | | stage V (HCC) | +--------+------+ + + + Social History [...] Denise | | | | | | [place], [place] | | | | | | [address] | | | | | | [phone] | | | | | | | [...] | e | 9:59 AM | MEDICARE 3460 [facility] | procedure are in the | [...] | | | | | stage V ([facility]) | | + +--------+ + + [...] | | | | | stage V ([facility]) | | + +--------+ + + [...] | | | | | stage V ([facility]) | | + +--------+ + + [...] status | | | | | | ([facility]) Chronic | | | | | | kidney disease, | | | | | | stage V ([facility]) | | + +--------+ + + [...] | | | | | stage V ([facility]) | | + +--------+ + + + | HIV-1,2 AB/HIV-1 P24 | Routin | 01/20/2015 | Allergic purpura- | Results for this | | AG SCRN | e | 9:59 AM | MEDICARE 2728 [facility] | procedure are in the | | | | PST | ([facility] | results section. | | |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 | | | | | | Hemodialysis status | | | | | | ([facility]) Chronic | | | | | | kidney disease, | | | | | | stage V ([facility]) | | + +--------+ + + [...] | | | PST | ([facility] | results section. | | | | [...] | | | PST | ([facility] | results section. | | | [...] the | | | | PST | ([facility] | results section. | | | | [...] | | | PST | ([facility] | results section. | | | [...] | | | PST | ([facility] | results section. | | | [...] | | | PST | ([facility] | results section. | | | [...] | | | PST | ([facility] | results section. | | | [...] the | | | | PST | ([facility] | results section. | | | | [...] | | | PST | ([facility] | results section. | | | | [...] | + + + + + | [place] [facility] - | [address] | [place] [address] | | | [place] | | | | + + + [...] [facility] | [address] | [place] [address] | | | SERVICES, CORE | PARK [...] [facility] | [address] | [place] [address] | | | SERVICES, SPECIAL | PARK [...] | + + + + + | [facility] | [address] | [place] [address] | | | DIAGNOSTIC | [address] [...] + | [facility] [facility] - | [address] | [place], [place] [address] | | | [place] | | | | + + + [...] + | [facility] - | [address] | [place] [address] | | | [place] | | | | + + + [...] + + + + | [facility] [facility] - | [address] | [place] [address] | | | [place] | | | [...] + | [facility] - | [address] | [place] [address] | | | [place] | | | [...] by | | | | | | [address] | | | | | | Pippa Sauceda, [facility],[place] | | | | | | [address] | | | | | | [phone].Codoonlab. | | | | | | Faisal mantilla, | | | | | | Jenny ALMEIDA. Director | | | | + + + + + + + + | Specimen | + + | Blood - Blood | + + + + + + + | Performing | Address | City/State/[facility] | Phone Number | | Organization | | | | + + + + + | [facility] | [address] | [place], [place] | | | UN[place] - INTFC | | [address] | | + + + + + [...] | [facility] - | [address] | [place] [address] | | | [place] | | | | + + + [...] by | | | | | | [facility],[address] | | | | | | [place] | | | | | | [address] | | | | | | [phone]. | | | | | | Faisal [...] [facility] | [address] | [place], [place] | | | UN[place] - INT[place] | | [address] | | + + + + + [...] [facility] | [address] | [place] [address] | | | SERVICES, CORE | PARK [...] | + + + + + | [facility] | [address] | [place] [address] | | | SERVICES, CORE | LONG [...] [facility] | [address] | [place] [address] | | | SERVICES, CORE | PARK [...] [facility] | [address] | [place] [address] | | | SERVICES, CORE | PARK [...] | + + + + + | [facility] | [address] | [place] [address] | | | SERVICES, HOMERO | LONG [...] | | | LABORATORY | | | [place] | | | SERVICES, | | | [...] + | [facility] | [address] | [place] [address] | | | SERVICES, CORE | PARK [...]
--- OUTSIDE RECORDS SUMMARY | ~2019-03-12 | XMS | Encounter Summary ---
Demographics + + + | Address | [address] | | | [place] [address] | + + + | Home Phone [...] | | | | | [place] [address] | | + + + + + | Thania Mallory | ECON | [address] | | | | | [place] [address] | | + + + + + | Deidra Weldon | ECON | [address] | | | | | [place] | | | | | [address] | | + + + + + Care Team Providers + +------+ + | Care Wildlife Control Agent Name | Role | Phone | [...] | [address] | [address] [place], | | | | | [place] | [place] [address] | | | | | [place] [address] | | | | | | [phone] | | | +--------+ + + + [...] Denise | | | | | | [place] | | | | | | [address] | | | | | | [phone] | | | | | | | | +--------+ + + + + documented as of this encounter Visit Diagnoses Not on filedocumented in this encounter"
--- OUTSIDE RECORDS SUMMARY | ~2019-03-12 | XMS | Encounter Summary ---
Demographics + + + | Address | [address] | | | [place] [address] [...] | | | | | [place] [address] | | + + + + + | Thania Mallory | ECON | [address] | | | | | [place] [address] | | + + + + + | Deidra Weldon | ECON | [address] | | | | | [place] | | | | | [address] | | + + + + + Care Team Providers + +------+ + | Care Smoke Tester Name | Role | Phone | [...] Lab Results | | 2016 | | Transplant Services | RN [address] | | | | | [address] | [facility] | | | | | [facility], | [place], [place] | | | | | [place] [address] | [address] | | | | | [phone] | | | +--------+ + + + [...] Denise | | | | | | [place] | | | | | | [address] | | | | | | [phone] | | | | | | | | +--------+ + + + + documented as of this encounter Visit Diagnoses Not on filedocumented in this encounter"
--- OUTSIDE RECORDS SUMMARY | ~2019-03-12 | XMS | Encounter Summary ---
Demographics + + + | Address | [address] | | | [place] [address] | + + + | Home Phone [...] | | | | | [place] [address] | | + + + + + | Thania Mallory | ECON | [address] | | | | | [place] [address] | | + + + + + | Deidra Weldon | ECON | [address] | | | | | [place] | | | | | [address] | | + + + + + Care Team Providers + +------+ + | Care Peripatologist Name | Role | Phone | + +------+ + PCP | Unavailable | + +------+ + Reason for Visit + + + | Reason | Comments | + + + | Transplant Form | medical office worker 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 | | Update | [...] dates | | | | [address] [place], | [place], [place] | updated) | | | | [place] [address] | [address] | | | | | [phone] | [phone] | | | | | | | [...] Denise | | | | | | [place], [place] | | | | | | [address] | | | | | | [phone] | | | | | | | | +--------+ + + + + documented as of this encounter Visit Diagnoses Not on filedocumented in this encounter"
--- OUTSIDE RECORDS SUMMARY | ~2019-03-12 | XMS | Encounter Summary ---
Demographics + + + | Address | [address] | | | [place] [address] | + + + | Home Phone [...] | | | | | [place] [address] | | + + + + + | Thania Mallory | ECON | [address] | | | | | [place] [address] | | + + + + + | Deidra Weldon | ECON | [address] | | | | | [place] | | | | | [address] | | + + + + + Care Team Providers + +------+ + | Care Diplomatic Courier Name | Role | Phone | + [...] Griffin | [facility] | | | | | [address] [place], | [place], [place] | | | | | [place] [address] | [address] | | | | | [phone] | | | +--------+ + + + [...] Denise | | | | | | [place] | | | | | | [address] | | | | | | [phone] | | | | | | | | +--------+ + + + + documented as of this encounter Visit Diagnoses Not on filedocumented in this encounter"
--- OUTSIDE RECORDS SUMMARY | ~2019-03-12 | XMS | Encounter Summary ---
Demographics + + + | Address | [address] | | | [place] [address] | + + + | Home Phone [...] | | | | | [place] [address] | | + + + + + | Thania Mallory | ECON | [address] | | | | | [place] [address] | | + + + + + | Deidra Weldon | ECON | [address] | | | | | [place] | | | | | [address] | | + + + + + Care Team Providers + +------+ + | Care Bathroom Tiling Professional Name | Role | Phone | [...] | | | [address] | [place] | | | | | [place], | [place], [place] | | | | | [place] [address] | [address] | | | | | [phone] | [phone] | | | | | | | [...] | | | | | | [place], [place] | | | | | | [address] | | | | | | [phone] | | | | | | | | +--------+ + + + + documented as of this encounter Visit Diagnoses Not on filedocumented in this encounter"
--- OUTSIDE RECORDS SUMMARY | ~2019-03-12 | XMS | Clinical Summary ---
Demographics + + + | Address | [address] | | | [place] [address] | + + + | Home Phone [...] | Author | [facility] | | | and Josephana | + + + | Organization | [facility] | [...] Providers + +------+ + | Care Animal Husbandry Manager Name | Role | Phone | [...] | | | | | renal disease) ([facility]) | protocol | | | | [...] Overview: Active Kidney Transplant Waiting List at [facility]: | | 03/07/2014 | + + + [...] | | Treated by Dr. Joy, pediatric genetic counselor. | + + + +---+ | ESRD [...] declot | | but reclotted). Listed at [facility] for kidney transplant - status | | [...] | Usha Del Castillo MD | dialysis ([facility]); | | 2018 | | | | Chronic pleural | | | | | | effusion; | | | | | | Noncompliance with | | | | | | renal dialysis | | | | | | ([facility]); Acute | | | | | | respiratory | | | | | | distress; Anemia in | | | | | | ESRD (end-stage | | | | | | renal disease) | | | | | | ([facility]); At high risk | | | | | | for electrolyte | | | | | | imbalance; ESRD on | | | | | | hemodialysis ([facility]); | | | | | | [...] | | 2019 | | | D, Crewman Armoured Personnel Carrier M113 | | +--------+ + + + + | 01/07/ | Hospital | Internal Medicine | Florian Nelson, | Hyperkalemia | | 2019 - | Encounter | | Megan Fields DO | (Primary Dx); ESRD | | | | | Nicholas Sutton MD | needing dialysis | | 01/10/ | | | Piedad Mosquera, | ([facility]); Acute | | 2018 | | | MD Kline, | respiratory | | | | | DO Paty | distress; Recurrent | | | | | | right pleural | | | | | | effusion; Anemia in | | | | | | ESRD (end-stage | | | | | | renal disease) | | | | | | ([facility]); At high risk | | | | | | for electrolyte | | | | | | imbalance; 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 | | | | | | failure ([facility]); | | | | | | 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 | | | | | | ([facility]); ESRD on | | | | | | hemodialysis ([facility]); | | | | | | [...] | Hospital | Internal Medicine | Rayray Powesr MD | Sepsis, due to | | 2018 - | Encounter | | Lee Harris MD | unspecified | | | | | Daron, Jw, DO | organism, | | 12/14/ | | | | unspecified whether | | 2019 | | | | acute organ | | | | | | dysfunction present | | | | | | ([facility]) (Primary Dx); | | | | | | Pneumonia of right | | | | | | lower lobe due to | | | | | | infectious organism | | | | | | ([facility]); Hypoxia; | | | | | | Hypervolemia, | | | | | | unspecified | | | | | | hypervolemia type; | | | | | | ESRD on dialysis | | | | | | ([facility]); Hyperkalemia; | | | | | | Acute on chronic | | | | | | respiratory failure | | | | | | with hypoxia and | | | | | | hypercapnia ([facility]); | | | | | | Acute respiratory | | | | | | failure with hypoxia | | | | | | ([facility]); Anemia in | | | | | | ESRD (end-stage | | | | | | renal disease) | | | | | | ([facility]); At high risk | | | | | | for electrolyte | | | | | | imbalance; Awaiting | | | | | | organ transplant | | | | | | status; 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 | | | | | | failure ([facility]); | | | | | | Chronic right-sided | | | | | | heart failure ([facility]); | | | | | | 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 | | | | | | ([facility]); ESRD on | | | | | | hemodialysis ([facility]); | | | | | | [...] | | | | | | function ([facility]); | | | | | | Moderate to severe | | | | | | pulmonary | | | | | | hypertension ([facility]); | | | | | | Low grade fever; | | | | | | Noncompliance of | | | | | | patient with renal | | | | | | dialysis ([facility]); | | | | | | [...] | | | | | [place] [address] | | | | | | [phone] | | | | | | | [...] Left: | SYNOVIS - | | | [id number] | | 0.8x8cm - [id number]: | | Arm | SYNO | | [...] (4.8) X 23cm | | | COVIDIEN - | | | [id number] | | | | | COVI | | | 3404 / | | | | | | | | | | | | | | | | /[id number] | | | | | | | [...] R?MRN: | | | | | | [id number] | | | [id number] | | | riteri | | | [...] | | | St. | | | [place] | | | y | | | [...] | | | St. | | | [place] | | | y | | | [...] | | | ey | | | 3/25/1 | | | 9 | | | 12:00 | | | AM | | | [facility] | | | [place] | | | y | | | [...] | | | St | | | [place] | | | y | | | [...] St | | | | | | [place] | | | y | | | [...] | | | St. | | | [place] | | | y | | | [...] | | | St. | | | [place] | | | y H. | | [...] | | | St. | | | [place] | | | y H. | | [...] | | | St. | | | [place] | | | y H. | | [...] | | | St. | | | [place] | | | y H. | | [...] | | | St. | | | [place] | | | y H. | | [...] | | | St. | | | [place] | | | y H. | | [...] | | | MD | | | Hospital A[facility] | | | al | | | [...] | | | [id number] | | | [id number] | | | eb | | | [...] R?MRN: | | | | | | [id number] | | | [id number] | | | riteri | | | [...] | | | St. | | | [place] | | | y | | | [...] | | | St. | | | [place] | | | y | | | [...] | | | ey | | | 3/ | | | 9 | | | 12:00 | | | AM | | | [facility] | [facility] | | | [place] | | | y | | | [...] | | | St | | | [place] | | | y | | | [...] St | | | | | | [place] | | | y | | | [...] | | | St. | | | [place] | | | y | | | [...] | | | St. | | | [place] | | | y H. | | [...] | | | St. | | | [place] | | | y H. | | [...] | | | St. | | | [place] | | | y H. | | [...] | | | St. | | | [place] | | | y H. | | [...] | | | St. | | | [place] | | | y H. | | [...] | | | St. | | | [place] | | | y H. | | [...] | | | St. | | | [place] | | | y H. | | [...] | | | MD | | | Hospital Aide | | | al | | | [...] | | | [id number] | | | [id number] | | | 2b | | | [...] [facility] | | | | performed at [facility], [address] | | LABORATORY | | | | [address], | | | | | | [place] [address] | | | | + + + + + + + + | Specimen | + + | | + + + + + + + | Performing | Address | City/State/Zipcode | Phone Number | | Organization | | | | + + + + + | [facility] | [address] | [place] [address] | [phone] | + + + + + Magnesium [...] Testing | 1.7 - 2.4 mg/dL | [facility] | | | | performed at [facility], [address] | | LABORATORY | | | | [address], | | | | | | [place] [address] | | | | + + + + + + + + | Specimen | + + | | + + + + + + + | Performing | Address | City/State/Zipcode | Phone Number | | Organization | | | | + + + + + | [facility] | [address] | [place] [address] | [phone] | + + + + + Renal [...] | | | | | performed at [facility], [address] | | | | | | [address], | | | | | | [place] [address] | | | | + + + + + + + + | Specimen | + + | Blood | + + + + + + + | Performing | Address | City/State/Zipcode | Phone Number | | Organization | | | | + + + + + | [facility] | [address] | [place] [address] | [phone] | + + + + + HEMODIALYSIS [...] | | | | | [place] [address] | | | | + + + + + + + + | Specimen | + + | Blood | + + + + + + + | Performing | Address | City/State/Zipcode | Phone Number | | Organization | | | | + + + + + | [facility] | [address] | [place] [address] | [phone] | + + + + + Troponin [...] (H)Comment: 0.04 | 0.00 - 0.04 | [facility] | | | | ng/mL or [...] | | [facility];[address] | | | | | | [facility];[place] [address] | | | | + + + + + + + + | Specimen | + + | Blood | + + + + + + + | Performing | Address | City/State/Zipcode | Phone Number | | Organization | | | | + + + + + | [facility] | [address] | [place] [address] | [phone] | + + + + + CBC [...] 8.21 | 3.8 0 - 11.00 | [facility] | | | | | K/u L [...] | | | | | | at [facility], [address] | | | | | | [employer], | | | | | | [place] [address] | | | | | |Testing performed at [facility], [address] [place] [address] | | | | | | | | | | + + +---- + + + + + | Specimen | + + | Blood | + + + + + + + | Performing | Address | City/State/Zipcode | Phone Number | | Organization | | | | + + + + + | [facility] | [address] | [place] [address] | [phone] | + + + + + Phosphorus [...] Testing | 2.3 - 4.8 mg/dL | [facility] | | | | performed at [facility], [address] | | LABORATORY | | | | [address], | | | | | | [place] [address] | | | | + + + + + + + + | Specimen | + + | Blood | + + + + + + + | Performing | Address | City/State/Zipcode | Phone Number | | Organization | | | | + + + + + | [facility] | [address] | [place] [address] | [phone] | + + + + + Ferritin (01/24/2019 5:53 AM PST) + + + + + + | Component | Value | Ref Range | Performed | Pathologist | | | | | At | Signature | + + + + + + | Ferritin | 805 (H)Comment: Testing | 6 - 170 ng/mL | [facility] | | | | performed at [facility], [address] | | LABORATORY | | | | [address], | | | | | | [place] [address] | | | | + + + + + + + + | Specimen | + + | Blood | + + + + + + + | Performing | Address | City/State/Zipcode | Phone Number | | Organization | | | | + + + + + | [facility] | [address] | [place] [address] | [phone] | + + + + + Creatine [...] Court, | | | | | | [place] [address] | | | | + + + + + + | CK-MB | 0Comment: Testing | 0 - 3 % | [facility] | | | | performed by [facility], | | LABORATORY | | | | [address], | | | | | | [facility] [address] | | | | + + + + + + | CK-BB | 0Comment: Testing | 0 % | [facility] | | | | performed by [facility], | | LABORATORY | | | | [address], | | | | | | [place] [address] | | | | + + + + + + | CK, Total | 156Comment: Testing | 24 - 173 U/L | [facility] | | | | performed at [employer], | | LABORATORY | | | | [address], [address], | | | | | | [place] [address] | | | | + + + [...] | | | | | [place] [address] | | | | + + + + + + + + | Specimen | + + | Blood | + + + + + + + | Performing | Address | City/State/Zipcode | Phone Number | | Organization | | | | + + + + + | [facility] | [address] | [place] [address] | [phone] | + + + + + Basic [...] 4 (L)Comment: GFR <60: | >60 | [facility] | | | GFR | CHRONIC [...] | | | | | | MDRD [facility] traceable | | | | | | equation.Testing | | | | | | performed at [facility], [address] | | | | | | [facility], | | | | | | [place] [address] | | | | + + + + + + + + | Specimen | + + | Blood | + + + + + + + | Performing | Address | City/State/Zipcode | Phone Number | | Organization | | | | + + + + + | [facility] | [address] | [place] [address] | [phone] | + + + + + XR Chest AP Portable (01/24/2019 1:35 AM [facility])Only the most recent of 4 results within [...] CHEST AP PORTABLE (01/07/2019); CHEST TWO VIEWS 99027 (01/06/2019); | | | FINDINGS: Mild cardiomegaly. [...] + | Cedric, Rad Results In - 01/24/2019 2:16 AM PST | | CHEST PORTABLE ONE VIEW | | | | CLINICAL INFORMATION: | | Post thoracentesis. | | | | COMPARISON: | | XR CHEST 2 VIEWS (01/23/2019); XR CHEST PA AND LATERAL (01/09/2019); CT | | CHEST WO CONTRAST (01/07/2019); XR CHEST AP PORTABLE (01/07/2019); CHEST | | TWO VIEWS 72622 (01/06/2019); | | | | FINDINGS: | [...] (H)Comment: | 0 - 100 pg/mL | [facility] | | | | Testing performed at | | LABORATORY | | | | [facility];[address] | | | | | | [address];[place] [address] | | | | + + + + + + + + | Specimen | + + | Blood | + + + + + + + | Performing | Address | City/State/Zipcode | Phone Number | | Organization | | | | + + + + + | [facility] | [address] | [place] [address] | [phone] | + + + + + Comprehensive [...] | | | | | | MDRD IDTX traceable | | | | | | equation.Testing | | | | | | performed at [facility];[address] | | | | | | [facility];[place], [place] | | | | | | [address] | | | | + + + + + + + + | Specimen | + + | Blood | + + + + + + + | Performing | Address | City/State/Zipcode | Phone Number | | Organization | | | | + + + + + | [facility] | [address] | [place] [address] | [phone] | + + + + + XR [...] underlying | | | lung. Signed by: Eliza Marinelli, Yani Sign Date/Time: | | | 01/23/2019 11:26 [...] (01/07/2019); CHEST TWO | | | VIEWS 98842 (01/06/2019); XR CHEST AP PORTABLE (12/13/2018); | [...] + | Cedric, Rad Results In - 01/23/2019 11:30 PM PST | | CHEST TWO VIEWS | | | | CLINICAL INFORMATION: | | Shortness of breath. | | | | COMPARISON: | | XR CHEST PA AND LATERAL (01/09/2019); CT CHEST WO CONTRAST (01/07/2019); | | XR CHEST AP PORTABLE (01/07/2019); CHEST TWO VIEWS 74521 (01/06/2019); XR | | CHEST AP PORTABLE [...] | | | | | ONLY, -COMPUTER (519), | | | | | | video tape editor Daniela Luciano | | | | [...] | | patient, procedure, equipment, business support professional and site/side marked as | | | [...] space: 6th Puncture method: | | | floc-ngi-smbbpw catheter Number of attempts: 1 Drainage amount: 1500 | | | ml Drainage characteristics: clear Patient tolerance: Patient | | | tolerated the procedure well with no immediate complications Chest | | | x-ray performed: yes Chest x-ray interpreted by radiologist. Chest | | | x-ray findings: pleural effusion (improved) | | + + + POC Glucose (01/10/2019 11:54 AM PST)Only the most recent of 18 results within the time per iod is included. + + + + + + | Component | Value | Ref Range | Performed | Pathologist | | | | | At | Signature | + + + + + + | Glucose, | 124 (H)Comment: Testing | 65 - 99 mg/dL | [facility] | | | POC | performed at [facility];[address] | | LABORATORY | | | | [address];[place] | | | | | | [address] | | | | + + + + + + + + | Specimen | + + | | + + + + + + + | Performing | Address | City/State/Zipcode | Phone Number | | Organization | | | | + + + + + | [facility] | [address] | [place] [address] | [phone] | + + + + + XR [...] | | PORTABLE (01/07/2019); CHEST TWO VIEWS 56547 (01/06/2019); XR CHEST AP | | | [...] + | Cedric, Rad Results In - 01/09/2019 5:10 PM PST | | CHEST PA AND LATERAL | | | | CLINICAL INFORMATION: | | Shortness of breath. | | | | COMPARISON: | | CT CHEST WO CONTRAST (01/07/2019); XR CHEST AP PORTABLE (01/07/2019); | | CHEST TWO VIEWS 75253 (01/06/2019); XR CHEST AP PORTABLE (12/13/2018); | [...] adenopathy. Upper Abdomen: The | | | [place] kidneys are atrophic. There is a small [...] + | Cedric, Rad Results In - 01/07/2019 4:30 PM [...] No adenopathy. | | Upper Abdomen: The [place] kidneys are atrophic. There is a small [...] B | NON REACTIVEComment: | NR | [facility] | | | Surface Ag | Testing performed at | | LABORATORY | | | | [facility], [address] | | | | | | [place] | | | | | | [address] | | | | + + + + + + + + | Specimen | + + | Blood | + + + + + + + | Performing | Address | City/State/Zipcode | Phone Number | | Organization | | | | + + + + + | [facility] | [address] | [place] [address] | [phone] | + + + + + Thoracentesis [...] space: 6th Puncture method: | | | bybj-iec-cqhjqe catheter Needle size: 18 Catheter size: 18 [...] + | Billie Gupta MD 12/14/2018 9:54 [facility] | | | [facility] Hemo-Dialysis Procedure note Pt is seen [...] QB 450 AP | | | -200 Parimutuel Clerk 170 Constitutional: pt appears without distress. on [...] recent of 3 results within the time grififn escobar is included. + + + + [...] | [facility] | | | Requests | [facility];[address] | | LABORATORY | | | | [address];[place] [address] | | | | + + + + + + | RESULT | NO GROWTH 6 DAYS | | [facility] | | | | | | LABORATORY | | + + + + + + | RESULT | Testing performed at | | [facility] | | | | [facility], [address] | | LABORATORY | | | | [address], [place], [place] | | | | | | [address]Rsuzwgy: Testing | | | | | | performed at [facility], [address] | [address] [facility], [place], [place] | | | | | | [address] | | | | + + + + + + + + | Specimen | + + | Blood - Peripheral | | blood specimen | | (specimen) | + + + + + + + | Performing | Address | City/State/Zipcode | Phone Number | | Organization | | | | + + + + + | [facility] | [address] | [place] [address] | [phone] | + + + + + C-Reactive Protein (12/12/2018 5:02 AM PDT) + + + + + + | Component | Value | Ref Range | Performed | Pathologist | | | | | At | Signature | + + + + + + | CRP | 8.6 (H)Comment: Testing | <0.5 mg/dL | [facility] | | | | performed at [facility], [address] | | LABORATORY | | | | [address], | | | | | | [place] [address] | | | | + + + + + + + + | Specimen | + + | Blood | + + + + + + + | Performing | Address | City/State/Zipcode | Phone Number | | Organization | | | | + + + + + | [facility] | [address] | [place] [address] | [phone] | + + + + + Influenza A and B RNA, NAAT (12/11/2018 3:56 PM PDT) + + + + + + | Component | Value | Ref Range | Performed | Pathologist | | | | | At | Signature | + + + + + + | Influenza A | NEGATIVE | NEG | [facility] | | | | | | LABORATORY | | + + + + + + | Influenza B | NEGATIVEComment: Testing | NEG | [facility] | | | | performed by Molecular | | LABORATORY | | | | MethodologyTesting | | | | | | performed at [facility];[address] | | | | | | [address];[place], [place] | | | | | | [address] | | | | + + + + + + + + | Specimen | + + | | + + + + + + + | Performing | Address | City/State/Zipcode | Phone Number | | Organization | | | | + + + + + | [facility] | [address] | [place] [address] | [phone] | + + + + + FLU SWAB COLLECTION (12/11/2018 3:46 PM PDT) + + + + + + | Component | Value | Ref Range | Performed | Pathologist | | | | | At | Signature | + + + + + + | Collection | SPECIMEN RECEIVED IN | | [facility] | | | | LABComment: Testing | | LABORATORY | | | | performed at [facility] | | | | | | [address];[place], [place] | | | | | | [address] | | | | + + + + + + + + | Specimen | + + | Tissue - Entire | | nasopharynx (body | | structure) | + + + + + + + | Performing | Address | City/State/Zipcode | Phone Number | | Organization | | | | + + + + + | [facility] | [address] | [place] [address] | [phone] | + + + + + PTT (12/11/2018 8:06 AM PDT) + + + + + + | Component | Value | Ref Range | Performed | Pathologist | | | | | At | Signature | + + + + + + | PTT | 32Comment: Testing | 23 - 32 seconds | [facility] | | | | performed at [facility];[address] | | LABORATORY | | | | [address];[place] | | | | | | [address] | | | | + + + + + + + + | Specimen | + + | Blood | + + + + + + + | Performing | Address | City/State/Zipcode | Phone Number | | Organization | | | | + + + + + | [facility] | [address] | [place] [address] | [phone] | + + + + + CT [...] [place] | | | | | | [address] | | | | + + + + + + + + | Specimen | + + | | + + + + + + + | Performing | Address | City/State/Zipcode | Phone Number | | Organization | | | | + + + + + | [facility] | [address] | [place] [address] | [phone] | + + + + + Lactic [...] | LABORATORY | | | | [address];[place], [place] | | | | | | [address] | | | | + + + + + + + + | Specimen | + + | Blood | + + + + + + + | Performing | Address | City/State/Zipcode | Phone Number | | Organization | | | | + + + + + | [facility] | [address] | [place] [address] | [phone] | + + + + + Protime INR (12/10/2018 11:02 PM PDT) + + + + + + | Component | Value | Ref Range | Performed | Pathologist | | | | | At | Signature | + + + + + + | INR | 1.3Comment: REFERENCE | | [facility] | | | | RANGE:0.9 - [...] [place] | | | | | | [address] | | | | + + + + + + + + | Specimen | + + | Blood | + + + + + + + | Performing | Address | City/State/Zipcode | Phone Number | | Organization | | | | + + + + + | [facility] | [address] | [place] [address] | [phone] | + + + + + from [...] +--------+ +---------+--------+ | MEDICARE | MEDICA | [id number] | 05/05/19 | [phone] | | [employer]ica | | | RE | | 13-Pre | 5 | | re | | | PART A | | sent | | | | | | AND B | | | | | | + +--------+ +--------+ +---------+--------+ | MEDICARE | [employer]ICA | [id number] | 05/05/19 | [phone] | | Medica | | | RE | | 13-Pre | 5 | | re | | | PART A | | sent | | | | | | AND B | | | | | | + +--------+ +--------+ +---------+--------+ | [employer] | MODA | [id number] | | [phone] | | Medica | | MEDICAID HMO | HEALTH | | 019-Pr | 1 | | id | | | MDCD | | esent | | | | | | HMO [place] | | | | | | + +--------+ +--------+ +---------+--------+ | [employer] | MODA | [id number] | | [phone] | | Medica | | MEDICAID HMO [...] | | [place] | | | 2 ([place]) | [id number] | + +--------+ +--------+ + + | Dara Weldon | Person | Self [birth year] | [address] | | | al/Fam | | 1994 | [phone] | [address] [place], [place] | | | [place] | | | 2 ([place]) | [phone] | + +--------+ +--------+ + + | Cory Weldon | Person | Father [birth year] | [address] | | | al/Fam | | 1970 | [phone] | [place] [address] | | | [place] | | | 9 ([place]) | | + +--------+ +--------+ + + Advance Directives + + + + + | Type | Date Recorded | Patient | Explanation | | | | [employer] | | + + + + + | Power of | 11/06/2018 7:27 | | | | Orthoptist | PM | | | + + [...]
--- OUTSIDE RECORDS SUMMARY | ~2019-03-12 | XMS | Encounter Summary ---
Demographics + + + | Address | [address] | | | [place] [address] | + + + | Home Phone [...] + + + | Author | [facility] | | | and Josephana | + + + | Organization | [facility] | [...] Team Providers + +------+ + | Care Gold Leaf Laborer Name | Role | Phone | + +------+ + | Jonathan Alonso MD | PCP | | + +------+ + Reason for Visit + + + | Reason | Comments | + + + | Congestive Heart | Reviewed for CHF Quality Measures | | Failure | | + + + Encounter Details +--------+ + + + + | Date | Type | Department | Care Team | Description | +--------+ + + + + | 12/19/ | Telephone | [facility] | George Torres RN | Congestive Heart | | 2019 | | [address] | | Failure (Reviewed | | | | [place], [place] | | for CHF Quality | | | | [address] | | Measures) | | | | [phone] | | | +--------+ + + + [...] [place] | | | | | | [place] [address] | | | | | | [phone] | | | | | | | | +--------+---------+ + + + documented as of this encounter Visit Diagnoses Not on filedocumented in this encounter"
--- OUTSIDE RECORDS SUMMARY | ~2019-03-12 | XMS | Encounter Summary ---
Demographics + + + | Address | [address] | | | [place] [address] | + + + | Home Phone [...] | | | | | [place] [address] | | + + + + + | Tahnia Mallory | ECON | [address] | | | | | [place] [address] | | + + + + + | Deidra Weldon | ECON | [address] | | | | | [place] | | | | | [address] | | + + + + + Care Team Providers + +------+ + | Care Strap Making Machine Operator Name | Role | [...] living/support | | | | [place], | [place], [place] | situation) | | | | [place] [address] | [address] | | | | | [phone] | | | +--------+ + + + [...] Denise | | | | | | [place] | | | | | | [address] | | | | | | [phone] | | | | | | | | +--------+ + + + + documented as of this encounter Visit Diagnoses Not on filedocumented in this encounter"
--- OUTSIDE RECORDS SUMMARY | ~2019-03-12 | XMS | Encounter Summary ---
Demographics + + + | Address | [address] | | | [place] [address] | + + + | Home Phone [...] | | | | | [place] [address] | | + + + + + | Thania Mallory | ECON | [address] | | | | | [place] [address] | | + + + + + | Deidra Weldon | ECON | [address] | | | | | [place] | | | | | [address] | | + + + + + Care Team Providers + +------+ + | Care Reference Librarian Name | Role | Phone | + +------+ + | Shahid Camargo MD | PCP | | + +------+ + Reason for Visit +--------+ + | Reason | Comments | +--------+ + | Other | Requested [id number] | +--------+ + Encounter Details +--------+ + + + + | Date | Type | Department | Care Team | Description | +--------+ + + + + | 11/15/ | Telephone | Clinical | Jesus Edmond, | Other (Requested | | 2012 | | Transplant Services | [address] | [id number]) | | | | [address] | [facility] | | | | | [place], | [place], [place] | | | | | [place] [address] | [address] | | | | | [phone] | [phone] | | | | | | | [...] Denise | | | | | | [place], [place] | | | | | | [address] | | | | | | [phone] | | | | | | | | +--------+ + + + + documented as of this encounter Visit Diagnoses Not on filedocumented in this encounter"
--- OUTSIDE RECORDS SUMMARY | ~2019-03-12 | XMS | Encounter Summary ---
Demographics + + + | Address | [address] | | | [place] [address] | + + + | Home Phone [...] | | | | | [place] [address] | | + + + + + | Thania Mallory | ECON | [address] | | | | | [place] [address] | | + + + + + | Deidra Weldon | ECON | [address] | | | | | [place] | | | | | [address] | | + + + + + Care Team Providers + +------+ + | Care Lead Infrastructure Architect Name | Role | Phone | [...] | | [address] | [facility] | | | | | [facility], | [place], [place] | | | | | [place] [address] | [address] | | | | | [phone] | | | +--------+ + + + [...] Denise | | | | | | [place], [place] | | | | | | [address] | | | | | | [phone] | | | | | | | | +--------+ + + + + documented as of this encounter Visit Diagnoses Not on filedocumented in this encounter"
--- OUTSIDE RECORDS SUMMARY | ~2019-03-12 | XMS | Encounter Summary ---
Demographics + + + | Address | [address] | | | [place] [address] | + + + | Home Phone [...] | Author | [facility] | | | and Josephana | + + + | Organization | [facility] | | [...] Team Providers + +------+ + | Care Nuclear Unit Operator Name | Role | Phone | + +------+ + | Jonathan Alonso MD | PCP | | + +------+ + Encounter Details +--------+ + + + + | Date | Type | Department | Care Team | Description | +--------+ + + + + | 10/17/ | Hospital | [facility] | Nikita, | ESRD (end stage | | 2019 - | Encounter | [facility] | MD [address] | renal disease) | | | | CARE FLOOR [address] | ([facility]); Dilated | | 10/22/ | [address] | [place] [address] | cardiomyopathy | | 2019 | | [place], [place] | [phone] | ([facility]); | | | | [address] | | Non-cardiogenic | | | | [phone] | Gerber Pearson MD | pulmonary edema; | | | | | [address] | Anemia in ESRD | | | | | [place] [address] | (end-stage renal | | | | | [phone] | disease) ([facility]); | | | | | [...] failure | | | | | | ([facility]); At high risk | | [...] might be different fr om the original. [facility] Service: Hospitalist Physician Discharge Summary Patient ID: [...] is to follow up with her regular dance therapist, Dr. Hurtado. DISCHARGE DIAGNOSES: 1. End-stage renal [...] Left; Surgeon: Blake Chavarria MD ; Location: [facility] MAIN OR AV FISTULA REPAIR Left 03/07/2014 Procedure: AV FISTULA - GRAFT REPAIR/REVISION; Surgeon: Rik Simon MD; Location: [facility] OR; Service: Vascular; Laterality: Left; biopsy of kidney age 10 DIALYSIS FISTULA CREATION 04/08/2014 Procedure: DIALYSIS CATHETER - INSERTION; Surgeon: Rik Simon MD; Location: [facility] OR ; Service: Vascular; Laterality: N/A; tunneled catheter.br hemodialysis catheter KIDNEY BIOPSY Left 2003 OTHER SURGICAL HISTORY LAPAROSCOPIC PERITONEAL DIALYSIS CATHETER INSERTION - x2 OTHER SURGICAL HISTORY Right 07/2013 LAPAROSCOPIC PERITONEAL DIALYSIS CATHETER INSERTION - current dialysis access MWF dialysis OTHER SURGICAL HISTORY Left 06/24/2014 SUPERFICIALIZATION OF AV FISTULA - Procedure: AV FISTULA - SUPERFICIALIZATION; Surgeon: Emanuel Simon MD; Location: [facility] MAIN OR; Service: Vascular; Laterality: Left; OTHER SURGICAL HISTORY Left 04/08/2014 AV FISTULA PLACEMENT - Procedure: AV FISTULA; Surgeon: Rik Simon MD; Location: [facility] OR; Service: Vascular; Laterality: Left; cephalic OTHER SURGICAL HISTORY Left 03/07/2014 DECLOT GRAFT - Procedure: GRAFT - DECLOT; Surgeon: Rik Simon MD; Location: [facility] [place] ; Service: Vascular; Laterality: Left; peritoneal [...] have: Continued coughing Fever Date Last Reviewed: 02/04/201619991736-0319 [employer] [place] [address], [place] [address]. All righ ts reserved. This information is [...] by your healthcare provider Date Last Reviewed: 12/05/201519991004-9546 [employer] [address] [place] [address], [place] [address]. All righ ts reserved. This information is [...] | | | renal disease) ([facility]) | protocol | | | [...] + + +---------+ + + | B Ixsxfjs-C-Gyftr | Take 1 tablet by | | [...] I have discussed the case with the ULTRASONIC SEAMING MACHINE OPERATOR. I agree with his findings & documentation. [...] Carrasco MD - 10/21/2018 3:00 PM PDT [facility] Service: NEPHROLOGY Progress Note Dara [place] 23 y.o. [id number] female Jonathan Alonso MD Hospital Day: [...] GRAFT REPAIR/REVISION; Surgeon: Rik Simon MD; Location: [facility] IN OR; Service: Vascular; Laterality: Left; [...] - SUPERFICIALIZATION; Surgeon: Emanuel Simon MD; Location: [facility] MAIN OR; Service: Vascular; Laterality: Left; OTHER SURGICAL HISTORY Left 04/08/2014 AV FISTULA PLACEMENT - Procedure: AV FISTULA; Surgeon: Rik Simon MD; Location: [facility] OR; Service: Vascular; Laterality: Left; cephalic OTHER SURGICAL HISTORY Left 03/07/2014 DECLOT GRAFT - Procedure: GRAFT - DECLOT; Surgeon: Rik Simon MD; Location: [facility] MAIN OR ; Service: Vascular; Laterality: Left; [...] file Social History Narrative She lives in [facility]. She does not work. She has 1 [...] MR, severe TR.severe pulmonary hyperten arturo Chest m-bzo-avczreknacnj with pulmonary edema and large right pleural [...] earlier and charting completed later Dictation software, Ubidyne, used which may contain error for similar sounding words even af ter review. Personal communication requested for any clarification. Portions of my notes may have been carried over for continuity of care.Electronically ananth d by Antonio Benjamin MD at 10/21/2018 3:11 PM Gerber Fernandez MD - 10/21/2018 7:18 AM PD T [facility] Adult Hospitalist Progress Note Hospital Day: 4 [...] BUN 90 on admission -History of a [place] Schnlein purpura -Last hemodialysis approximately 2 weeks [...] PearsonCamille D - 10/20/2018 9:09 AM PDT [facility] Adult Hospitalist Progress Note Hospital [...] BUN 90 on admission -History of a [place] Schnlein purpura -Last hemodialysis approximately 2 weeks [...] [place] | | | | | | [place] [address] | | | | | | [phone] | | | | | | | [...] [place], | | | | | | [place] [address] | | | | + + + + + + + + | Specimen | + + | Blood | + + + + + + + | Performing | Address | City/State/Zipcode | Phone Number | | Organization | | | | + + + + + | [facility] | [address] | [place] [address] | [phone] | + + + + + Basic [...] | performed at [facility], [address] | | | | | | [facility], | | | | | | [place] [address] | | | | + + + [...] [facility] | [address] | [place] [address] | [phone] | + + + + + Basic [...] | performed at [facility], [address] | | | | | | [facility], | | | | | | [place] [address] | | | | + + + [...] [facility] | [address] | [place] [address] | [phone] | + + + + + Basic [...] | | | | | performed at [facility] | | | | | | [facility];[place], [place] | | | | | | [address] | | | | + + + [...] CAMPUS LAB[facility]ORY | [address] | [place] [address] | [phone] | + + + + + documented in this encounter Visit Diagnoses + + | Diagnosis | + + | Non-cardiogenic pulmonary edema - Primary Pulmonary congestion and hypostasis | + + | ESRD (end stage renal disease) ([facility]) End stage renal disease | + + | Dilated cardiomyopathy ([facility]) Other primary cardiomyopathies | + [...] | | | for platelets less than [phone], | | + +---+ | | | [...]
--- OUTSIDE RECORDS SUMMARY | ~2019-03-12 | XMS | Encounter Summary ---
Demographics + + + | Address | [address] | | | [place] [address] | + + + | Home Phone [...] Author | [facility] | | | and [place] | + + + | Organization | [facility] | | | and [place] | + [...] Team Providers + +------+ + | Care Superintendent Quarry Name | Role | Phone | + +------+ + PCP | Unavailable | + +------+ + Encounter Details +--------+ + + + + | Date | Type | Department | Care Team | Description | +--------+ + + + + | 03/07/ | Hospital | [facility] | Rik Simon MD | Complication of AV | | 2015 | Encounter | [facility] | [address] | dialysis fistula, | | | | [address] | [place], [place] | initial encounter | | | | [address] | [address] | ([facility]) | | | | [place], [place] | [phone] | | | | | [address] | | | | | | [phone] | | | +--------+ + + + [...] [address] | | | | | | [place] [address] | | | | | | [phone] | | | | | | | | +--------+---------+ + + + documented as of this encounter Procedures + +--------+ + + + | Procedure Name | Priori | Date/Time | Associated Diagnosis | Comments | | | ty | | | | + +--------+ + + + | TISSUE REQUEST FOR | Routin | 03/10/2014 | | Results for this | | PATHOLOGY (NON-ORD) | e | 12:00 AM | | procedure are in the | | | | PST | | results section. | + +--------+ + + + | TYPE AND SCREEN | Routin | 03/07/2014 | | Results for this | | | e | 4:47 PM | | procedure are in the | | | | PST | | results section. | + +--------+ + + + | ECG 12 LEAD | Routin | 03/07/2014 | | Results for this | | | e | 4:29 PM | | procedure are in the | | | | PST | | results section. | + +--------+ + + + | EXTERNAL LAB: CBC | Routin | 03/07/2014 | | Results for this | | | e | 4:25 PM | | procedure are in the | | | | PST | | results section. | + +--------+ + + + | PTT | Routin | 03/07/2014 | | Results for this | | | e | 4:25 PM | | procedure are in the | | | | PST | | results section. | + +--------+ + + + | COMPREHENSIVE | Routin | 03/07/2014 | | Results for this | | METABOLIC PANEL | e | 4:25 PM | | procedure are in the | | | | PST | | results section. | + +--------+ + + + documented in this encounter Results Tissue Request For Pathology (03/10/2014 12:00 AM PST) + + | Specimen | + + | Soft tissue sample | | (specimen) | + + + + + | Narrative | Performed At | + + + | SPECIMEN(S): A Lt. RADIAL ARTERY SPECIMEN SOURCE: A. Lt. RADIAL | EXTERNAL LAB | | ARTERY CLINICAL HISTORY: 03/07/2014 at 1850 H. Left radical ?, | | | fistula. FINAL PATHOLOGIC DIAGNOSIS: Left radial artery, | | | thrombectomy: - Fibrin and blood. AMB:lac:CNR GROSS | | | DESCRIPTION: The specimen is received in formalin labeled with the | | | patient's name and designated "left radial artery" and consists of one | | | red tubular tissue fragment that is 0.5 cm in length and has an | | | average diameter of 0.1 cm. Also present within the container is a | | | 0.6 x 0.5 x 0.4 cm aggregate of red-brown friable tissue. The | | | specimen is entirely submitted in cassette (A1). FM MICROSCOPIC | | | EXAMINATION: Histologic sections of all submitted blocks are examined | | | by light microscopy. These findings, together with the gross | | | examination, support the pathologic diagnosis. PERFORMING LABORATORY: | | | Professional interpretation and technical preparation was performed | | | by [facility], [address], | | | [place] [address] (Washing Machine Loader And Puller: Daniel Larson M.D.; | | | [facility]#: [id number]). Diagnostician: Anahy Da Silva MD Pathologist | | | Electronically Signed 03/11/2014 | | + + + + +---------+ + + | Performing | Address | City/State/Zipcode | Phone Number | | Organization | | | | + +---------+ + + | EXTERNAL LAB | | | | + +---------+ + + Type and Screen (03/07/2014 4:47 PM PST) + + + + + + | Component | Value | Ref Range | Performed | Pathologist | | | | | At | Signature | + + + + + + | ABO Rh | O NEGATIVE | | EXTERNAL | | | | | | LAB | | + + + + + + | ABO Rh | Testing performed at | | EXTERNAL | | | | [facility] | [address] | | | | [address];[place] [address] | | | | + + + + + + | Antibody | NEGATIVE | | EXTERNAL | | | Screen | | | LAB | | + + + + + + | Antibody | Testing performed at | | EXTERNAL | | | Screen | [facility];[address] | LAB | | | | [address];[place] [address] | | | | + + + + + + | BB BAND | [id number] | | EXTERNAL | | | | | | LAB | | + + + + + + | BB BAND | Testing performed at | | EXTERNAL | | | | [facility];[address];[place] [address] | | | | + + + [...] + +---------+ + + ECG 12 lead (03/07/2014 4:29 PM PST) + + + + + + | Component | Value | Ref Range | Performed | Pathologist | | | | | At | Signature | + + + + + + | DIAGNOSIS: | Normal sinus rhythm with | | EXTERNAL | | | | sinus arrhythmiaNormal | | LAB | | | | ECGNo previous ECGs | | | | | | availableThis ECG | | | | | | contains Unconfirmed | | | | | | Interpretation | | | | | | Statements. See ED | | | | | | Record for Physician | | | | | | Interpretation. | | | | | | Confirmed by MUSE READ | | | | | | ONLY, -COMPUTER ([id number]), | | | | | | staff editor ROBERT BOOKER ([id number]) | | | | | | on 03/07/2014 6:28:09 PM | | | | + + + + + + + + | Specimen | + + | | + + + + + | Narrative | Performed At | + + + | Historically converted procedure from [facility] environment | EXTERNAL LAB | | Lul Elizabeth MD 03/08/2014 2:32 AM [facility] | | | [place] Department of Emergency Medicine 4:10 PM History of | | | Present Illness Patient Identification Dara Weldon is a 19 | | | y.o. female. Patient information was obtained from patient and | | | parent. History/Exam limitations: none. Patient presented to the | | | Emergency Department by: Car Chief Complaint Chief Complaint | | | Patient presents with ? Referral pt has blood clot in left arm | | | fistula, sent to ER to check in, supposed to go straight to the OR | | | The patient presents to the ED for evaluation of L arm fistula | | | complication. The pt had a L arm fistula placed about one week and | | | a half ago in [place]. She is still using a right subclavian | | | dialysis catheter for access, but today during dialysis blood clot | | | was noted in the L arm fistula and she was sent to the ED to be | | | evaluated. Dr. Simon is aware of the pt and pt is scheduled to go to | | | the OR. Pt has been on dialysis for approximately two years for | | | kidney disease. Pt has not had any PO intake since 0600 this AM. The | | | pt and parents have no other complaints or concerns at this time. | | | Past Medical History Diagnosis Date ? 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 Av fistula placement ? Renal biopsy ? Laparoscopic | | | peritoneal dialysis catheter insertion x2 ? Abdominal | | | surgery Prior to Admission medications Medication Sig | | | Start Date End Date Taking? Authorizing Provider cinacalcet | | | (SENSIPAR) 30 MG tablet Take 25 mg by mouth daily. Yes Historical | | | Provider folic acid-vitamin b complex-vitamin [id number]-uviu | | | (DIALYVITE) 3 MG TABS Take 1 tablet by mouth daily. Yes | | | Historical Provider furosemide (LASIX) 20 MG tablet Take 20 mg by | | | mouth daily. Yes Historical Provider sevelamer (RENVELA) 800 | | | MG tablet Take 800 mg by mouth 3 (three) times daily with meals. | | | Yes Historical Provider Allergies Allergen Reactions ? | | | Morphine Rash History Social History ? Marital Status: N/A | | | Spouse Name: N/A Number of Children: N/A ? Years of | | | Education: N/A Occupational History ? Not on file. Social | | | History Main Topics ? Smoking status: Never Smoker ? Smokeless | | | tobacco: Not on file ? Alcohol Use: No ? Drug Use: No ? Sexual | | | Activity: Not on file Other Topics Concern ? Not on file | | | Social History Narrative History reviewed. No pertinent family | | | history. Review of Systems Constitutional: Negative for fever | | | or chills Eyes: Negative for vision changes Ears: Negative | | | for otalgia Nose: Negative for congestion or nosebleeds | | | Throat: Negative for sore throat CV/Resp: Positive for L arm | | | fistula complication Negative for chest pain, | | | iqvrjeidv-at-pkuseq, or cough GI: Negative for abdominal pain, | | | nausea, vomiting, or diarrhea : Negative for urinary problems | | | Musculoskeletal: Negative for back pain or joint pain Skin: | | | Negative for rash Neuro/Psych: Negative for headache All | | | other systems reviewed and negative except as noted. Physical | | | Exam Pulse 68 - Temp(Src) 98.7 ?F (37.1 ?C) - Resp 16 - SpO2 99% | | | - LMP 02/24/2014 Vitals interpretation: WNL Pulse Oximetry | | | interpretation: Normal General: Alert, NAD Eyes: Normal | | | inspection, EOMI, PERRL ENT: TM's normal. Nose normal. Normal | | | pharynx. Neck: Supple, no meningismus CV: Regular rate and | | | rhythm. Respiratory: No respiratory distress. Lungs clear to | | | auscultation bilaterally Abdomen: Soft, non-tender, and | | | non-distended. No guarding or rebound : Deferred Rectal: | | | Deferred Back: Normal inspection, normal ROM Extremities: | | | Fistula incision over the L forearm. No palpable thrill Skin: | | | Warm, dry. No rash Neuro: No gross focal deficits. Motor and | | | sensory grossly intact Psych: Normal affect Medical Decision | | | Making and Emergency Department Course ED Department Course | | | Pt presents to the ED for evaluation of a L arm fistula | | | complication. On exam the pt has a fistula incision over the L | | | forearm with no palpable thrill. The pt is alert and stable. Dr. Simon | | | is aware of the pt and pt is scheduled to go to the OR. Basic labs | | | with type&screen and EKG have been ordered. Records Reviewed Old | | | medical records. Nursing notes. Laboratory Evaluation Results | | | Procedure Component Value Ref Range Date/Time Complete Metabolic | | | Panel [[id number]] (Abnormal) Collected: 03/07/141624 Order | | | Status: Completed Updated: 03/07/141709 Specimen | | | Information: Blood SODIUM 138 135 - 143 mmol/L | | | POTASSIUM 3.9 3.5 - 4.9 mmol/L CHLORIDE 103 99 - 109 mmol/L | | | CO2 26 23 - 32 mmol/L ANION GAP AGAP 12 5 - 20 mmol/L | | | GLUCOSE 78 65 - 99 mg/dL BUN 12 8 - 25 mg/dL | | | CREATININE 3.51 (H) 0.50 - 1.00 mg/dL BUN/CREAT 4 | | | CALCIUM 9.6 8.5 - 10.2 mg/dL TOTAL PROTEIN 8.1 6.3 - 8.2 g/dL | | | Albumin 3.7 3.6 - 5.0 g/dL GLOBULIN 4.3 1.3 - 4.9 g/dL | | | A/G 0.9 (L) 1.0 - 2.4 TBIL 0.4 0.1 - 1.5 mg/dL | | | ALK PHOS 121 (H) 35 - 115 U/L AST 20 10 - 45 U/L ALT | | | 38 10 - 65 U/L EGFR >60 mL/min/1.73m2 Result: | | | CALCULATION NOT PERFORMED. RESULT NOT VALID IF AGE LT 20 YEARS. | | | PTT [[id number]] Collected: 03/07/141624 Order Status: | | | Completed Updated: 03/07/141704 Specimen Information: | | | Blood APTT 29 23 - 32 seconds CBC w Auto Diff [[id number]] | | | (Abnormal) Collected: 03/07/14 1625 Order Status: | | | Completed Updated: 03/07/14 1650 Specimen Information: | | | Blood WBC 7.9 3.8 - 11.0 K/uL RBC 3.70 3.70 - 5.10 | | | M/uL HGB 12.9 11.3 - 15.5 g/dL HCT 38.9 34.0 - 46.0 % | | | MCV 105.2 (H) 80.0 - 100.0 fl MCH 35.0 (H) 27.0 - 34.0 pg | | | MCHC 33.3 32.0 - 35.5 g/dL RDW SD 51.6 37 - 53 fl | | | PLT 175 150 - 400 K/uL MPV 8.9 fl DIFF TYPE AUTOMATED | | | NEUTROPHILS 71.7 % LYMPHOCYTES 19.5 % MONOCYTES | | | 6.7 % EOSINOPHILS 1.6 % BASOPHILS 0.5 % | | | NEUTROPHILS ABS 5.6 1.9 - 7.4 K/uL LYMPHOCYTES ABS 1.5 1.0 - | | | 3.9 K/uL MONOCYTES ABS 0.5 0 - 0.8 K/uL EOSINOPHILS ABS | | | 0.1 0 - 0.5 K/uL BASOPHILS ABS 0.0 0 - 0.1 K/uL | | | Radiology and EKG Evaluation Interpreted by Lul benitez MD | | | at time of service Imaging Results None ED Diagnosis | | | Final diagnosis Complication of AV dialysis fistula, initial | | | encounter Disposition: ED Disposition None | | | Follow-up Information Follow up With Details Comments Contact Info | | | Rik Simon MD In [address] [place] [address] | | | [phone] Discharge Medications: Discharge Medication | | | List as of 03/07/2014 7:25 PM START taking these medications | | | Details HYDROcodone-acetaminophen (NORCO) 5-325 MG per tablet Take | | | 1-2 tablets by mouth every 6 (six) hours as needed for Pain., | | | Starting 03/07/2014, Until 03/17/14, Print Procedures | | | Additional Documentation EKG Date/Time: 03/07/2014 4:29 PM | | | Performed by: LUL ELIZABETH Authorized by: LUL ELIZABETH Interpreted by ED | | | physician Rhythm: sinus rhythm Rate: normal BPM: 83 QRS axis: | | | normal Conduction: conduction normal ST Segments: ST segments normal | | | T Waves: T waves normal Clinical impression: normal ECG | | | Attending Note: Documentation assistance provided by Marilee Kilpatrick (Scribe). Information recorded by the scribe has been | | | reviewed and validated by me. I agree with its contents. Lul Jasso | Dottie Elizabeth MD | | + + + + +---------+ + + | Performing | Address | City/State/Zipcode | Phone Number | | Organization | | | | + +---------+ + + | EXTERNAL LAB | | | | + +---------+ + + PTT (03/07/2014 4:25 PM PST) + + + + + + | Component | Value | Ref Range | Performed | Pathologist | | | | | At | Signature | + + + + + + | aPTT, | 29Comment: Testing | 23 - 32 seconds | EXTERNAL | | | Patient | performed at [facility];[address] | | LAB | | | | [address];[place] | | | | | | [address] | | | | + + + [...] + +---------+ + + External Lab: CBC (03/07/2014 4:25 PM PST) + + + + + + | Component | Value | Ref Range | Performed | Pathologist | | | | | At | Signature | + + + + + + | WBC | 7.9Comment: Testing | 3.8 - 11.0 K/uL | EXTERNAL | | | | performed at [facility];[address] | | LAB | | | | [address];[place] | | | | | | [address] | | | | + + + + + + | RED CELL | 3.70Comment: Testing | 3.70 - 5.10 | EXTERNAL | | | COUNT | performed at [facility];[address] | M/uL | LAB | | | | [address];[place] | | | | | | [address] | | | | + + + + + + | Hgb | 12.9Comment: Testing | 11.3 - 15.5 | EXTERNAL | | | | performed at [facility];[address] | g/dL | LAB | | | | [address];[place] | | | | | | [address] | | | | + + + + + + | Hematocrit, | 38.9Comment: Testing | 34.0 - 46.0 % | EXTERNAL | | | POC | performed at [facility];[address] | | LAB | | | | [address];[place] | | | | | | [address] | | | | + + + + + + | MCV | 105.2 (H)Comment: | 80.0 - 100.0 fl | EXTERNAL | | | | Testing performed at | | LAB | | | | [facility];[address] | | | | [address];[place] [address] | | | | + + + + + + | MCH | 35.0 (H)Comment: Testing | 27.0 - 34.0 pg | EXTERNAL | | | | performed at [facility];[address] | | LAB | | | | [address];[place] | | | | | | [address] | | | | + + + + + + | MCHC | 33.3Comment: Testing | 32.0 - 35.5 | EXTERNAL | | | | performed at [facility];[address] | g/dL | LAB | | | | [address];[place] | | | | | | [address] | | | | + + + + + + | RDW-CV | 51.6Comment: Testing | 37 - 53 fl | EXTERNAL | | | | performed at [facility];[address] | | LAB | | | | [address];[place] | | | | | | [address] | | | | + + + + + + | Platelet | 175Comment: Testing | 150 - 400 K/uL | EXTERNAL | | | Count | performed at [facility];[address] | | LAB | | | Plasma | [address];[place] | | | | | | [address] | | | | + + + + + + | MPV | 8.9Comment: Testing | fl | EXTERNAL | | | | performed at [facility];[address] | | LAB | | | | [address];[place] | | | | | | [address] | | | | + + + + + + | Differentia | AUTOMATEDComment: | | EXTERNAL | | | l Type | Testing performed at | | LAB | | | | [facility];[address] | [address];[place] [address] | | | | + + + + + + | % Segmented | 71.7Comment: Testing | % | EXTERNAL | | | | performed at [facility];[address] | | LAB | | | Neutrophils | [address];[place] | | | | | | [address] | | | | + + + + + + | % | 19.5Comment: Testing | % | EXTERNAL | | | Lymphocytes | performed at [facility];[address] | | LAB | | | | [address];[place] | | | | | | [address] | | | | + + + + + + | % Monocytes | 6.7Comment: Testing | % | EXTERNAL | | | | performed at [facility];[address] | | LAB | | | | [address];[place] | | | | | | [address] | | | | + + + + + + | % | 1.6Comment: Testing | % | EXTERNAL | | | Eosinophils | performed at [facility];[address] | | LAB | | | | [address];[place] | | | | | | [address] | | | | + + + + + + | % Basophils | 0.5Comment: Testing | % | EXTERNAL | | | | performed at [facility];[address] | | LAB | | | | [address];[place] | | | | | | [address] | | | | + + + + + + | Absolute | 5.6Comment: Testing | 1.9 - 7.4 K/uL | EXTERNAL | | | Segmented | performed at [facility];[address] | | LAB | | | Neutrophils | [address];[place] | | | | | | [address] | | | | + + + + + + | Absolute | 1.5Comment: Testing | 1.0 - 3.9 K/uL | EXTERNAL | | | Lymphocytes | performed at [facility];[address] | | LAB | | | | [address];[place] | | | | | | [address] | | | | + + + + + + | Absolute | 0.5Comment: Testing | 0 - 0.8 K/uL | EXTERNAL | | | Monocytes | performed at [facility];[address] | | LAB | | | | [address];[place] | | | | | | [address] | | | | + + + + + + | Absolute | 0.1Comment: Testing | 0 - 0.5 K/uL | EXTERNAL | | | Eosinophils | performed at [facility];[address] | | LAB | | | | [address];[place] | | | | | | [address] | | | | + + + + + + | Absolute | 0.0Comment: Testing | 0 - 0.1 K/uL | EXTERNAL | | | Basophils | performed at [facility];[address] | | LAB | | | | [address];[place] | | | | | | [address] | | | | + + + [...] + +---------+ + + Comprehensive Metabolic Panel (03/07/2014 4:25 PM PST) + + + + + + | Component | Value | Ref Range | Performed | Pathologist | | | | | At | Signature | + + + + + + | Na | 138Comment: Testing | 135 - 143 | EXTERNAL | | | | performed at [facility];[address] | mmol/L | LAB | | | | [address];[place] | | | | | | [address] | | | | + + + + + + | K | 3.9Comment: Testing | 3.5 - 4.9 | EXTERNAL | | | | performed at [facility];[address] | mmol/L | LAB | | | | [address];[place] | | | | | | [address] | | | | + + + + + + | Cl | 103Comment: Testing | 99 - 109 mmol/L | EXTERNAL | | | | performed at [facility];[address] | | LAB | | | | [address];[place] | | | | | | [address] | | | | + + + + + + | CO2 | 26Comment: Testing | 23 - 32 mmol/L | EXTERNAL | | | | performed at [facility];[address] | | LAB | | | | [address];[place] | | | | | | [address] | | | | + + + + + + | Anion Gap | 12Comment: Testing | 5 - 20 mmol/L | EXTERNAL | | | | performed at [facility];[address] | | LAB | | | | [address];[place] | | | | | | [address] | | | | + + + + + + | Glucose, | 78Comment: Testing | 65 - 99 mg/dL | EXTERNAL | | | Fasting | performed at [facility];[address] | | LAB | | | | [address];[place] | | | | | | [address] | | | | + + + + + + | BUN | 12Comment: Testing | 8 - 25 mg/dL | EXTERNAL | | | | performed at [facility];[address] | | LAB | | | | [address];[place] | | | | | | [address] | | | | + + + + + + | Creatinine | 3.51 (H)Comment: Testing | 0.50 - 1.00 | EXTERNAL | | | | performed at [facility];[address] | mg/dL | LAB | | | | [address];[place] | | | | | | [address] | | | | + + + + + + | BUN/Creatin | 4Comment: Testing | | EXTERNAL | | | ine Ratio | performed at [facility];[address] | | LAB | | | | [address];[place] | | | | | | [address] | | | | + + + + + + | Calcium | 9.6Comment: Testing | 8.5 - 10.2 | EXTERNAL | | | | performed at [facility];[address] | mg/dL | LAB | | | | [address];[place] | | | | | | [address] | | | | + + + + + + | Protein, | 8.1Comment: Testing | 6.3 - 8.2 g/dL | EXTERNAL | | | Total | performed at [facility];[address] | | LAB | | | | [address];[place] | | | | | | [address] | | | | + + + + + + | Albumin | 3.7Comment: Testing | 3.6 - 5.0 g/dL | EXTERNAL | | | | performed at [facility];[address] | | LAB | | | | [address];[place] | | | | | | [address] | | | | + + + + + + | Globulin | 4.3Comment: Testing | 1.3 - 4.9 g/dL | EXTERNAL | | | | performed at [facility];[address] | | LAB | | | | [address];[place] | | | | | | [address] | | | | + + + + + + | A/G Ratio | 0.9 (L)Comment: Testing | 1.0 - 2.4 | EXTERNAL | | | | performed at [facility];[address] | | LAB | | | | [address];[place] | | | | | | [address] | | | | + + + + + + | Bilirubin | 0.4Comment: Testing | 0.1 - 1.5 mg/dL | EXTERNAL | | | Total | performed at [facility];[address] | | LAB | | | | [address];[place] | | | | | | [address] | | | | + + + + + + | ALP, | 121 (H)Comment: Testing | 35 - 115 U/L | EXTERNAL | | | External | performed at [facility];[address] | | LAB | | | | [address];[place] | | | | | | [address] | | | | + + + + + + | AST | 20Comment: Testing | 10 - 45 U/L | EXTERNAL | | | | performed at [facility];[address] | | LAB | | | | [address];[place] | | | | | | [address] | | | | + + + + + + | ALT | 38Comment: Testing | 10 - 65 U/L | EXTERNAL | | | | performed at [facility];[address] | | LAB | | | | [address];[place] | | | | | | [address] | | | | + + + + + + | Estimated | CALCULATION NOT | mL/min/1.73m2 | EXTERNAL | | | GFR | PERFORMED. RESULT NOT | | LAB | | | | VALID IF AGE LT 20 | | | | | | YEARS.Comment: Testing | | | | | | performed at [facility];[address] | | | | | | [employer];[place], [place] | | | | | | [address] | | | | + + + [...] + | Diagnosis | + + | Complication of AV dialysis fistula, initial encounter | + + documented in this encounter
--- OUTSIDE RECORDS SUMMARY | ~2019-03-12 | XMS | Encounter Summary ---
Demographics + + + | Address | [address] | | | [place] [address] | + + + | Home Phone [...] | | | | | [place] [address] | | + + + + + | Thania Mallory | ECON | [address] | | | | | [place] [address] | | + + + + + | Deidra Weldon | ECON | [address] | | | | | [place] | | | | | [address] | | + + + + + Care Team Providers + +------+ + | Care Retail Cosmetics Sales Counter Manager Name | Role | Phone | [...] | | | [phone] | [facility] | | | | | [facility], | [place], [place] | | | | | [place] [address] | [address] | | | | | [phone] | | | +--------+ + + + [...] Denise | | | | | | [place], [place] | | | | | | [address] | | | | | | [phone] | | | | | | | | +--------+ + + + + documented as of this encounter Visit Diagnoses Not on filedocumented in this encounter"
--- OUTSIDE RECORDS SUMMARY | ~2019-03-12 | XMS | Encounter Summary ---
Demographics + + + | Address | [address] | | | [place] [address] | + + + | Home Phone [...] | | | | | [place] [address] | | + + + + + | Thania Mallory | ECON | [address] | | | | | [place] [phone] | | + + + + + | Deidra Weldon | ECON | [address] | | | | | [place] | | | | | [address] | | + + + + + Care Team Providers + +------+ + | Care Veterinary Anatomist Name | Role | Phone | [...] living/support | | | | [place], | [place], [place] | situation) | | | | [place] [address] | [address] | | | | | [phone] | | | +--------+ + + + [...] Denise | | | | | | [place] | | | | | | [address] | | | | | | [phone] | | | | | | | | +--------+ + + + + documented as of this encounter Visit Diagnoses Not on filedocumented in this encounter"
--- OUTSIDE RECORDS SUMMARY | ~2019-03-12 | XMS | Encounter Summary ---
Demographics + + + | Address | [address] | | | [place] [address] | + + + | Home Phone [...] | | | | | [place] [address] | | + + + + + | Thania Mallory | ECON | [address] | | | | | [place] [address] | | + + + + + | Deidra Weldon | ECON | [address] | | | | | [place] | | | | | [address] | | + + + + + Care Team Providers + +------+ + | Care Carbide Tool Die Maker Name | Role | Phone | [...] | | Transplant Services | MD Emanuel [address] | Update (Evaluation | | | | [address] | [address] | Scheduled) | | | | [place], | [place], [place] | | | | | [place] [address] | [address] | | | | | [phone] | [phone] | | | | | | | [...] Denise | | | | | | [place] | | | | | | [address] | | | | | | [phone] | | | | | | | | +--------+ + + + + documented as of this encounter Visit Diagnoses Not on filedocumented in this encounter"
--- OUTSIDE RECORDS SUMMARY | ~2019-03-12 | XMS | Encounter Summary ---
Demographics + + + | Address | [address] | | | [place] [...] | | | | | [place] [address] | | + + + + + | Thania Mallory | ECON | [address] | | | | | [place] [address] | | + + + + + | Deidra Weldon | ECON | [address] | | | | | [place] | | | | | [address] | | + + + + + Care Team Providers + +------+ + | Care Sales Exhibitor Name | Role | Phone | + [...] | | | | | [place], | | | | | | [place] [address] | | | +--------+ + + + [...] Denise | | | | | | [place], [place] | | | | | | [address] | | | | | | [phone] | | | | | | | [...] [facility] - | [address], | [place] [address] | | | IMMUNOGENETICS/TRANS | [address] | | | | [facility] | | | | + + + + + documented in this encounter Visit Diagnoses Not on filedocumented in this encounter"
--- OUTSIDE RECORDS SUMMARY | ~2019-03-12 | XMS | Encounter Summary ---
Demographics + + + | Address | [address] | | | [place] [address] | + + + | Home Phone [...] Author | [facility] | | | and Josephana | + + + | Organization | [facility] [...] Team Providers + +------+ + | Care Grain Elevator Motor Starter Name | Role | Phone | + +------+ + | Tien Nicholson MD | PCP | | + +------+ + Encounter Details +--------+ + + + + | Date | Type | Department | Care Team | Description | +--------+ + + + + | 07/18/ | Hospital | [facility] | Mary Mcaky, | Febrile illness; | | 2019 - | Encounter | [facility] | [address] | Recurrent pleural | | | | CARE [address]LO[address] | [place] [address] | effusion on right; | | 07/24/ | | [address] | [phone] | Hypoxia; History of | | 2019 | | [place], [place] | | end stage renal | | | | [address] | | disease; ESRD on | | | | [phone] | | hemodialysis ([facility]); | | | | | | Anemia in ESRD | | | | | | (end-stage renal | | | | | | disease) ([facility]); | | | | | | Moderate to severe | | | | | | pulmonary | | | | | | hypertension ([facility]); | | | | | | Chronic right-sided | | | | | | heart failure ([facility]); | | | | | [...] 1306 Date of Service: 07/24/18905 Status: Signed Family Services Manager: Usha Martínez MD (Physician) [facility]: Hospitalist Discharge Summary Date of Admission: [...] renal disease on hemodialysis Monday and Monday (lehr stripper Dr. 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, hypertension, asthma, chronic combined heart failure, severe pulmonary hypertension, cor pulmonale, moderate mitral valve regurgitation, severe tricuspid regurgit ation and other chronic comorbidities who was discharged on 05/2018 from [facility] with bilateral pleural effusions and ascites status post thoracentesis 1.5 L removed transudative and 4 L ascitic fluid removed who presents to [facility] ER from [place] [facility] for sepsis likely seco ndary to [...] after discharge and to follow -up with lehr stripper and drop shipment clerk within 1 to 2 weeks after discharge [...] AV FISTULA; Surgeon: Rik Simon MD; Location: [facility] MAIN OR; Service: Vascula r; Laterality: Left; cephalic AV FISTULA REPAIR Left 03/07/2014 Procedure: AV FISTULA - GRAFT REPAIR/REVISION; Surgeon: Rik Simon MD; Location: [facility] IN OR; Service: Vascular; Laterality: Left; DECLOT GRAFT Left 03/07/2014 Procedure: GRAFT - DECLOT; Surgeon: Rik Simon MD; Location: [facility] MAIN OR; Service: Vas cular; Laterality: Left; DIALYSIS FISTULA CREATION N/A 04/08/2014 Procedure: DIALYSIS CATHETER - INSERTION; Surgeon: Rik Simon MD; Location: [facility] OR ; Service: Vascular; Laterality: N/A; tunneled catheter LAPAROSCOPIC PERITONEAL DIALYSIS CATHETER INSERTION x2 LAPAROSCOPIC PERITONEAL DIALYSIS CATHETER INSERTION Right 07/2013 current dialysis access MWF dialysis RENAL BIOPSY RENAL BIOPSY Left 2003 SUPERFICIALIZATION OF AV FISTULA Left 06/24/2014 Procedure: AV FISTULA - SUPERFICIALIZATION; Surgeon: Rik Simon MD; Location: [facility] OR; Service: Vascular; Laterality: Left; Allergies Allergen [...] PH Unknown 7.48 Fluid culture w/gram stain [[id number]] Collected: 07/21/18 1400 Order Status: Completed Lab Status: Preliminary result Updated: 07/24/18 0948 Specimen: Body Fluid from Thoracic Fluid Specimen Description THORACIC FLUID GRAM STAIN NO CELLS OR ORGANISMS SEEN CULTURE NO GROWTH 3 DAYS Fluid total protein (Body fluid) [[id number]] Collected: 07/21/18 1400 Order Status: Completed Lab Status: Final result Updated: 07/21/18 165 Specimen: Body Fluid from Thoracentesis Fluid FLUID TOTAL PROTEIN 4.2 g/dL Comment: This is not a glass scullion validated sample type for this method. No reference ra nges have been established. Testing performed at [facility], [address] [place] [address] FLUID TP SOURCE THORACENTESIS Comment: [place] [facility] [place] [place] [address] Lactate dehydrogenase, body fluid [[id number]] Collected: 07/21/18 1400 Order Status: Completed Lab Status: Final result Updated: 07/21/181649 Specimen: Body Fluid from Thoracentesis Fluid FLUID LDH 148 U/L Comment: This is not a glass scullion validated sample type for this method. No reference ra nges have been established. Testing performed at [facility], [address] [place] [address] pH, body fluid [[id number]] Collected: 07/21/18 1400 Order Status: Completed Lab Status: Final result Updated: 07/21/18 1426 Specimen: Body Fluid from Thoracentesis Fluid FLUID PH 7.48 Comment: Testing performed at [facility] [place] [place] [address] Blood Culture Set 1 [[id number]] Collected: 07/19/18 0853 Order Status: Completed Lab Status: Preliminary result Updated: 07/21/18 06 Specimen: Blood from Blood, peripheral draw Specimen Description BLOOD, PERIPHERAL DRAW SPECIAL REQUESTS RIGHT AC CULTURE NO GROWTH 2 DAYS Blood Culture Set 2 [[id number]] Collected: 07/19/18 0925 Order Status: Completed Lab Status: Preliminary result Updated: 07/21/18 06 Specimen: Blood from Blood, peripheral draw Specimen Description BLOOD, PERIPHERAL DRAW SPECIAL REQUESTS RT FOREARM CULTURE NO GROWTH 2 DAYS Respiratory Filmarray [[id number]] (Abnormal) Collected: 07/19/18 0132 Order Status: Completed [...] by Molecular Methodology Comment: Testing performed at [facility], [address] [place] [address] MRSA by PCR [[id number]] Collected: 07/19/18 013 Order Status: Completed Lab Status: Final result Updated: 07/19/18303 Specimen: Nasal from Nares(Nose) SOURCE NARES(NOSE) MRSA PCR NEGATIVE Comment: Testing performed at [facility] [place] [place] [address];[place] [address] Disposition: Home Condition: Stable Code Status: Full [...] Follow up: Tien Nicholson MD [address] [facility], [address] [place] [address] Schedule an appointment as soon as possible for a visit in 1 week [facility] [address] [place] [address] Schedule an appointment as soon as possible for a visit in 1 week [facility]ULMON[facility] [address] [place] [address] Schedule an appointment as soon as [...] | | | | | renal disease) ([facility]) | protocol | | | [...] Date of Service: 07/24/18 1028 Status: Signed Family Services Manager: Iram Saleh RN (Registered Nurse) Disposition: Home [...] Date of Service: 07/24/18 1016 Status: Signed Family Services Manager: Christina Aguilar RN (Registered Nurse) Discharge teaching given, prescriptions faxed by lead case manager to pt's pharmacy. Pt denies c oncern. Ride home at bedside. Pt getting dressed now for discharge. onver arturo Transaction, Provider Unknown - 07/24/2018 10:12 AM PDT Case Management by Iram Saleh RN at 07/24/18 1012 Author: Iram Saleh RN Service: (none) Author Type: Registered Nurse Filed: 07/24/18 1014 Date of Service: 07/24/18 1012 Status: Signed Family Services Manager: Iram Saleh RN (Registered Nurse) Discharge planning: Met with pt, she indicated her friend is on her way to transport her from the hospital, no other needs identified. ADÁN signed and copy placed in chart. Pt's discharge prescriptions was faxed to [facility], Billie Braxton MD - 07/24/2018 9:09 AM PDTFormatting of this note might be different from th e original. Progress Notes by Billie Gupta MD at 07/24/18 09 Author: Billie Gupta MD Service: Nephrology Author Type: Physician Filed: 07/24/18910 Date of Service: 07/24/18908 Status: Signed Family Services Manager: Billie Gupta MD (Physician) [facility] Followup -Nephrology I saw Ms. Dara Louise today for follow-up. she is interviewed, examined and meds/ labs Have been reviewed. 23-year-old female with an extensive past medical history of IgA vasculitis, end-stage abdiel l disease on hemodialysis Monday and Monday (lehr stripper Dr. Anguiano) , chronic c ombined heart failure, severe pulmonary hypertension, cor pulmonale, moderate mitral valve r egurgitation, severe tricuspid regurgitation and other chronic comorbidities who was dischar ged on 05/2018 from [facility] with bilateral pleural effusions and ascites status post thoracente sis 1.5 L removed transudative and 4 L ascitic fluid removed who presents to [facility] ER f [place] [facility] for sepsis [...] 07/24/18524 Date of Service: 07/24/18454 Status: Signed Family Services Manager: Minda Hudson RN (Registered Nurse) Pt reporting [...] (none) Author Type: Registered Nurse Filed: 07/23/18 5044 Date of Service: 07/23/181825 Status: Signed Family Services Manager: Saundra Hartley RN (Registered Nurse) Pt continues [...] 07/23/181336 Date of Service: 07/23/181335 Status: Signed Family Services Manager: Sotero Reinoso MD (Physician) [facility]: Hospitalist Progress Note Hospital Day: LOS: 4 days Briefly, 23-year-old female with an extensive past medical history of IgA vasculitis, end-s tage renal disease on hemodialysis Monday and Monday (lehr stripper Dr. Anguiano) co mplicated with thrombosis of vascular dialysis stent on Plavix, hypertension, asthma, chroni c combined heart failure, severe pulmonary hypertension, cor pulmonale, moderate mitral valv e regurgitation, severe tricuspid regurgitation and other chronic comorbidities who was disc harged on 05/2018 from [facility] with bilateral pleural effusions and ascites status post thorace ntesis 1.5 L removed transudative and 4 L ascitic fluid removed who presents to [facility] E R from [place] ER for sepsis likely secondary to pulmonary [...] weeks after discharge and to follow-up with lehr stripper and drop shipment clerk within 1 to 2 weeks after discharge [...] range Anemia in ESRD (end-stage renal disease) ([facility]) ASSESSMENT & PLAN 1. Sepsis: -Hemodynamically stable. -Noted at [place] the patient was febrile with a T-max [...] The patient does follow up with outpatient drop shipment clerk (Dr. Mahmood) patient is tentative ly and [...] 07/23/18926 Date of Service: 07/23/18917 Status: Signed Family Services Manager: Billie Gupta MD (Physician) [facility] Follow[facility] -Nephrology I saw Ms. Dara Louise today for follow-up. she is interviewed, examined and meds/ labs Have been reviewed. 23-year-old female with an extensive past medical history of IgA vasculitis, end-stage abdiel l disease on hemodialysis Monday and Monday (lehr stripper Dr. Anguiano) , chronic c ombined heart failure, severe pulmonary hypertension, cor pulmonale, moderate mitral valve r egurgitation, severe tricuspid regurgitation and other chronic comorbidities who was dischar ged on 05/2018 from [facility] with bilateral pleural effusions and ascites status post thoracente sis 1.5 L removed transudative and 4 L ascitic fluid removed who presents to [facility] ER f [facility] ER for sepsis likely secondary to pneumonia. [...] 07/23/18622 Date of Service: 07/23/18622 Status: Signed Family Services Manager: Shannon Martell RN (Registered Nurse) No acute [...] 07/22/181726 Date of Service: 07/22/181722 Status: Signed Family Services Manager: Sotero Reinoso MD (Physician) [facility]: Hospitalist Progress Note Hospital Day: LOS: 3 days 23-year-old female with an extensive past medical history of IgA vasculitis, end-stage abdiel l disease on hemodialysis Monday and Monday (lehr stripper Dr. Anguiano) complicated with thrombosis of vascular dialysis stent on Plavix, hypertension, asthma, chronic combine d heart failure, severe pulmonary hypertension, cor pulmonale, moderate mitral valve regurgi tation, severe tricuspid regurgitation and other chronic comorbidities who was discharged on 05/2018 from [facility] with bilateral pleural effusions and ascites status post thoracentesis 1.5 L removed transudative and 4 L ascitic fluid removed who presents to [facility] ER from [facility] ER for sepsis likely secondary to pneumonia. [...] range Anemia in ESRD (end-stage renal disease) ([facility]) ASSESSMENT & PLAN 1. Sepsis: -Hemodynamically stable. -Noted at [place] [facility] the patient was febrile with a T-max [...] The patient does follow up with outpatient drop shipment clerk (Dr. Mahmood) patient is tentative ly and [...] Date of Service: 07/22/18 1609 Status: Addendum Family Services Manager: Rafaela Patel RN (Registered Nurse) Related Notes: [...] Date of Service: 07/22/18 09 Status: Addendum Family Services Manager: Billie Gupta MD (Physician) Related Notes: Original Note by KRISHNA Sahu (Advanced Registered Nurse Practitio banner) filed at 07/22/18 1057 [facility] Follow[facility] -Nephrology I saw Ms. Dara Louise today for follow-up. she is interviewed, examined and meds/ labs Have been reviewed. 23-year-old female with an extensive past medical history of IgA vasculitis, end-stage abdiel l disease on hemodialysis Monday and Monday (lehr stripper Dr. Anguiano) complicated with thrombosis of vascular dialysis stent on Plavix, hypertension, asthma, chronic combine d heart failure, severe pulmonary hypertension, cor pulmonale, moderate mitral valve regurgi tation, severe tricuspid regurgitation and other chronic comorbidities who was discharged on 05/2018 from [facility] with bilateral pleural effusions and ascites status post thoracentesis 1.5 L removed transudative and 4 L ascitic fluid removed who presents to [facility] ER from [facility] ER for sepsis likely secondary to pneumonia. [...] 0656 Date of Service: 07/22/18653 Status: Signed Family Services Manager: Priti Priest RN (Registered Nurse) SBP 80-100's, Pt reports slight lightheadedness with pressures in 80's. Afebrile. HR SR 80' s. No other changes over noc. [facility] Chart chart complete onver arturo Transaction, Provider Unknown - 07/21/2018 7:42 PM PDT Nurse Progress Note by Francesca Bustos RN at 07/21/181941 Author: Francesca Bustos RN Service: (none) Author Type: Registered Nurse Filed: 07/21/181942 Date of Service: 07/21/181941 Status: Signed Family Services Manager: Francesca Bustos RN (Registered Nurse) No significant [...] Date of Service: 07/21/18 1233 Status: Signed Family Services Manager: Sotero Reinoso MD (Physician) [facility]: Hospitalist Progress Note Hospital Day: LOS: 2 days 23-year-old female with an extensive past medical history of IgA vasculitis, end-stage abdiel l disease on hemodialysis Monday and Monday (lehr stripper Dr. Anguiano) complicated with thrombosis of vascular dialysis stent on Plavix, hypertension, asthma, chronic combine d heart failure, severe pulmonary hypertension, cor pulmonale, moderate mitral valve regurgi tation, severe tricuspid regurgitation and other chronic comorbidities who was discharged on 05/2018 from [facility] with bilateral pleural effusions and ascites status post thoracentesis 1.5 L removed transudative and 4 L ascitic fluid removed who presents to [facility] ER from [facility] ER for sepsis likely secondary to pneumonia. [...] range Anemia in ESRD (end-stage renal disease) ([facility]) ASSESSMENT & PLAN 1. Sepsis: -Hemodynamically stable. -Noted at [facility] the patient was febrile with a T-max [...] The patient does follow up with outpatient drop shipment clerk (Dr. Mahmood) patient is tentative ly and [...] Date of Service: 07/21/18 1024 Status: Signed Family Services Manager: Billie Gupta MD (Physician) [facility] -Nephrology I saw . Dara Louise [...] 07/21/18614 Date of Service: 07/21/18614 Status: Signed Family Services Manager: Gris Hawk RN (Registered Nurse) Medicated for pain x1, nausea x1. No other acute changes noted. End of shift review complet e. onver arturo Transaction, Provider Unknown - 07/20/2018 7:44 PM PDT Nurse Progress Note by Francesca Bustos RN at 07/20/181943 Author: Francesca Bustos RN Service: (none) Author Type: Registered Nurse Filed: 07/20/181945 Date of Service: 07/20/181943 Status: Signed Family Services Manager: Francesca Bustos RN (Registered Nurse) No significant [...] 07/20/181624 Date of Service: 07/20/181624 Status: Signed Family Services Manager: Prashanth Estevez RN (Registered Nurse) Infection Prevention [...] completed Mycoplasma pneumoniae Droplet (DI) Prashanth Estevez [facility] blemo Sotero parker MD - 07/20/2018 4:15 PM PDT Progress Notes by Sotero Reinoso MD at 07/20/181614 Author: Sotero Reinoso MD Service: Hospitalist Author Type: Physician Filed: 07/20/181625 Date of Service: 07/20/181614 Status: Signed Family Services Manager: Sotero Reinoso MD (Physician) [facility]: Hospitalist Progress Note Hospital Day: LOS: 1 day 23-year-old female with an extensive past medical history of IgA vasculitis, end-stage abdiel l disease on hemodialysis Monday and Monday (lehr stripper Dr. Anguiano) complicated with thrombosis of vascular dialysis stent on Plavix, hypertension, asthma, chronic combine d heart failure, severe pulmonary hypertension, cor pulmonale, moderate mitral valve regurgi tation, severe tricuspid regurgitation and other chronic comorbidities who was discharged on 05/2018 from [facility] with bilateral pleural effusions and ascites status post thoracentesis 1.5 L removed transudative and 4 L ascitic fluid removed who presents to [facility] ER from [place] [facility] for sepsis [...] range Anemia in ESRD (end-stage renal disease) ([facility]) ASSESSMENT & PLAN 1. Sepsis: -Hemodynamically stable. -Noted at [facility] the patient was febrile with a T-max [...] The patient does follow up with outpatient drop shipment clerk (Dr. Mahmood) patient is tentative ly and [...] Date of Service: 07/20/18 1507 Status: Signed Family Services Manager: Stephanie Hirsch RN (Registered Nurse) 07/20/18 1500 [...] Oriented Prior functional status independent Power of Spring Inspector No Anticipated Discharge Plan Post Acute Care Needs None at this time Plan communicated to patient/family Yes Resources Financial concerns No Transportation issues No Patient/Family concerns No Prescription Plan Yes Name of Pharmacy [facility] Previous home health equipment [...] resources utilized / needed: Dialysis M/W/F @ [facility] Assistance in transportation: pov w/friends Identification of any specific education / training: tbd Barriers to Discharge / Alternative housing needed: none Anticipated DCP: Home Danea Hirsch RN,BSN,CM Yudy Arredondo ARNP - 07/20/2018 8:50 AM PDT Progress Notes by KRISHNA Nice at 07/20/18 0850 Author: KRISHNA Nice Service: Radiology Author Type: Advanced Registered Nurse Derick hancock Filed: 07/20/18 0902 Date of Service: 07/20/18 0850 Status: Signed Family Services Manager: KRISHNA Nice (Advanced Registered Nurse Practitioner) [facility]: Radiology Progress Note Patient evaluated for [...] 07/20/18655 Date of Service: 07/20/18654 Status: Signed Family Services Manager: Nereida Edwards RN (Registered Nurse) VS stable. [...] 07/19/181925 Date of Service: 07/19/181925 Status: Signed Family Services Manager: Francesca Bustos RN (Registered Nurse) No significant [...] Service: Nephrology Author Type: Physician Filed: 07/19/18 0673 Date of Service: 07/19/181349 Status: Signed Family Services Manager: Antonio Pabon MD (Physician) [facility]: NEPHROLOGY Dialysis Note Dara Louise 23 y.o. [id number] female [facility] Day: LOS: 0 days 23-year-old female with [...] AV FISTULA; Surgeon: Rik Simon MD; Location: [facility] OR; Service: Vascula r; Laterality: Left; cephalic AV FISTULA REPAIR Left 03/07/2014 Procedure: AV FISTULA - GRAFT REPAIR/REVISION; Surgeon: Rik Simon MD; Location: [facility] IN OR; Service: Vascular; Laterality: Left; DECLOT GRAFT Left 03/07/2014 Procedure: GRAFT - DECLOT; Surgeon: Rik Simon MD; Location: [facility] MAIN OR; Service: Vas cular; Laterality: Left; DIALYSIS FISTULA CREATION N/A 04/08/2014 Procedure: DIALYSIS CATHETER - INSERTION; Surgeon: Rik Simon MD; Location: [facility] MAIN OR ; Service: Vascular; Laterality: N/A; tunneled catheter LAPAROSCOPIC PERITONEAL DIALYSIS CATHETER INSERTION x2 LAPAROSCOPIC PERITONEAL DIALYSIS CATHETER INSERTION Right 07/2013 current dialysis access MWF dialysis RENAL BIOPSY RENAL BIOPSY Left 2003 SUPERFICIALIZATION OF AV FISTULA Left 06/24/2014 Procedure: AV FISTULA - SUPERFICIALIZATION; Surgeon: Rik Simon MD; Location: [facility] MAIN OR; Service: Vascular; Laterality: Left; Prescriptions [...] on file Social History Narrative Lives in [facility], 2 wks ago fell at home , [...] earlier and charting completed later Dictation software, Peach, used which may contain error for similar [...] Date of Service: 07/19/18 1020 Status: Signed Family Services Manager: Francesca Bustos RN (Registered Nurse) No significant changes from shift assessment. No falls or new signs of skin breakdown. Pt p ain, itching & nausea controlled with PRNs (see MAR). VSS for remainder of shift. WCM End of shift chart check done. blemo Sotero parker MD - 07/19/2018 8:01 AM PDT Progress Notes by Sotero Reinoso MD at 07/19/18 0801 Author: Sotero Reinoso MD Service: Hospitalist Author Type: Physician Filed: 07/19/18 1427 Date of Service: 07/19/18 0801 Status: Addendum Family Services Manager: Sotero Reinoso MD (Physician) Related Notes: Original Note by Sotero Reinoso MD (Physician) filed at 07/19/18 0078 [facility]: Hospitalist Progress Note Hospital Day: LOS: 0 days 23-year-old female with an extensive past medical history of IgA vasculitis, end-stage abdiel l disease on hemodialysis Monday and Monday (lehr stripper Dr. Anguiano) complicated with thrombosis of vascular dialysis stent on Plavix, hypertension, asthma, chronic combine d heart failure, severe pulmonary hypertension, cor pulmonale, moderate mitral valve regurgi tation, severe tricuspid regurgitation and other chronic comorbidities who was discharged on 05/2018 from [facility] with bilateral pleural effusions and ascites status post thoracentesis 1.5 L removed transudative and 4 L ascitic fluid removed who presents to [facility] ER from [facility] ER for sepsis likely secondary to pneumonia. [...] -Hemodynamically stable except for tachycardia. -Noted at [facility] the patient was febrile with a T-max [...] The patient does follow up with outpatient drop shipment clerk (Dr. Mahmood) patient is tentative ly and [...] 07/19/18129 Date of Service: 07/19/18129 Status: Signed Family Services Manager: Jae Gutierres RPH (Pharmacist) Renal Dosing Monitoring: [...] [address] | | | | | | [place] [address] | | | | | | [phone] | | | | | | | [...] EXTERNAL | | | | performed at [facility] [place] | | LAB | | | | [address];[place] | | | | | | [address] | | | | + + + [...] | | | | performed at [facility] [place] | | | | | | [facility];[place], [place] | | | | | | [address] | | | | + + + [...] | | | | performed at [facility] [place] | | | | | | [facility] Center;[place], [place] | | | | | | [address] | | | | + + + [...] EXTERNAL | | | | performed at [facility], [address] | | LAB | | | | [facility], | | | | | | [place] [address] | | | | + + + [...] | | | | performed at [facility], [address] | | | | | | [facility], | | | | | | [place] [address] | | | | + + + [...] | EXTERNAL LAB | | not a glass scullion validated sample type for this method. No reference | | | ranges have been established. Testing performed at [facility], [address] | | | [place] [address] FLUID TP SOURCE | | | THORACENTESIS Testing performed at [facility] [place] | | [address];[place] [address] | | + + + + +---------+ [...] EXTERNAL LAB | | is not a glass scullion validated sample type for this method. No | | | reference ranges have been established. Testing performed at [facility], | | | [address] [place] [address] | | + + + + +---------+ [...] EXTERNAL LAB | | Testing performed at [facility] [place] [place] [address];[place] [address] | | + + + + +---------+ [...] EXTERNAL | | | | performed at [facility] [place];[address] | | LAB | | | | [address];[place] | | | | | | [address] | | | | + + + [...] EXTERNAL | | | | performed at [facility] [place];[address] | | LAB | | | | [address];[place], [place] | | | | | | [address] | | | | + + + [...] with arms on the | | | pses-mbe-zum table. Ultrasound was utilized to tk an [...] | | | possibility of "sound alike" packing machine can feeder errors, addition and/or | | | deletions [...] at the bedside with arms on the eaoq-yre-tzd | | table. Ultrasound was utilized to [...] recognition system. The possibility of "sound alike" packing machine can feeder errors, | | addition and/or deletions may [...] system. The possibility of "sound a like" packing machine can feeder errors, addition and/or deletions may occur. If [...] | | | | | at [facility], [address] | | | | | | [place], | | | | | | [place] [address] | | | | | |Testing performed at [facility], [address], [place] [address] | | | | | | | [...] | | | | performed at [facility], [address] | | | | | | [place], | | | | | | [place] [address] | | | | + + + [...] EXTERNAL | | | | performed at [facility] [place];[address] | mmol/L | LAB | | | | [address];[place], [place] | | | | | | [address] | | | | + + + [...] | | | Patient | performed at [facility] [place];[address] | | LAB | | | | [address];[place], [place] | | | | | | [address] | | | | + + + [...] | | | | performed at [facility] [place];[address] | | | | | | [address];[place], [place] | | | | | | [address] | | | | + + + [...] | | | Estimate | performed at [facility] [place];[facility] | | LAB | | | | [address];[place], [place] | | | | | | [address] | | | | + + + [...] | | | | performed at [facility] [place];[facility] | | | | | | [facility];[place], [place] | | | | | | [address] | | | | + + + [...] at | | | | | | [facility] [place] [place];[address] [place] [address] | | | | | | [facility];[place] [address] | | | | + + + [...] | | | | performed at [facility] [place];[address] | | | | | | [facility];[place], [place] | | | | | | [id number] ON 07/19 | | | | | [...] at | | | | | | [facility] [place];[address] [place] [address] | | | | | | Blvd;[place] [address] | | | | + + + [...] | | | | | at [facility], [address] | | | | | | [facility], | | | | | | [place] [address] | | | | | |Testing performed at [facility], [address] [facility], [place] [address] | | | | | | | [...] EXTERNAL | | | | performed at [facility], [address] | | LAB | | | | [facility], | | | | | | [place] [address] | | | | + + + [...] EXTERNAL | | | | performed at [facility], [address] | | LAB | | | | [place], | | | | | | [place] [address] | | | | + + + [...] | | | | performed at [facility], [address] | | | | | | [facility], | | | | | | [place] [address] | | | | + + + [...] NEGATIVE Testing | | | performed at [facility] [place];[address] [place] [address];[place] [address] | | + + + + +---------+ [...] at | | | [facility], [address] [place] [address] | | + + + + +---------+ [...] EXTERNAL | | | | performed at [facility] [place];[address] | mmol/L | LAB | | | | [address];[place] | | | | | | [address] | | | | + + + [...] | | | | | at [facility] [place];[address] [place] [address] | | | | | | [facility];[place] [address] | | | | + + + [...] at | | | | | | [facility] [place];[address] [facility] | | | | | | Blvd;[place] [address] | | | | + + + [...] | | | QUALITATIVE | performed at [facility] [place];[facility] | | LAB | | | | [address];[place] | | | | | | [address] | | | | + + + [...] | Anemia in ESRD (end-stage renal disease) ([facility]) Anemia in chronic kidney disease | + + | Moderate to severe pulmonary hypertension (HCC) Other chronic pulmonary heart | | diseases | + + | Chronic right-sided heart failure (HCC) Congestive heart failure, unspecified | + + | Pleural effusion on right Unspecified pleural effusion | + + documented in this encounter
--- OUTSIDE RECORDS SUMMARY | ~2019-03-12 | XMS | Encounter Summary ---
Demographics + + + | Address | [address] | | | [place] [address] | + + + | Home Phone [...] Team Providers + +------+ + | Care Visual Associate Name | Role | Phone | + +------+ + PCP | Unavailable | + +------+ + Encounter Details +--------+ + + + + | Date | Type | Department | Care Team | Description | +--------+ + + + + | 01/22/ | Hospital | [facility] GENERIC OP | Sudhakar Joy | | | 2009 | Encounter | JOY | MD Emanuel [address] | | | | | [address] | [facility] | | | | | [address] | [place], [place] | | | | | [place], [place] | [address] | | | | | [address] | [phone] | | | | | [phone] | | | +--------+ + + + [...] DAV[place]SON | | | | | | [place] [address] | | | | | | [phone] | | | | | | | | +--------+---------+ + + + documented as of this encounter Visit Diagnoses Not on filedocumented in this encounter"
--- OUTSIDE RECORDS SUMMARY | ~2019-03-12 | XMS | Encounter Summary ---
Demographics + + + | Address | [address] | | | [place] [address] | + + + | Home Phone [...] | Author | [facility] | | | and [place] | + + + | Organization | [facility] | [...] + +------+ + | Care Director Of Student Aid Name | Role | Phone | + +------+ + PCP | Unavailable | + +------+ + Encounter Details +--------+ + + + + | Date | Type | Department | Care Team | Description | +--------+ + + + + | 08/21/ | Hospital | [facility] | Conversion | End stage renal | | 2015 | Encounter | CENTER CV INTRA OP | Transaction, | disease (HCC); | | | | [address] | Provider Unknown | Mechanical | | | | [place], [place] | [phone] | complication of | | | | [address] | | other vascular | | | | [phone] | Darryn Whaley, | device, implant, and | | | | | [address] | graft (HCC) | | | | | [address]VE [place], [place] | | | | | | [address] | | | | | | | [...] E | | | | | | [place] [address] | | | | | | [phone] | | | | | | | [...] venous anastomosis without incidence. | | | 63[address], 01821, 93383, [address] | | + + + + + [...] conscious sedation and | | | independent intermediate supervision performed throughout the | | | [...] | | | needle and exchanged for 4-Kenyan micropuncture sheath. Initial | | | fistula [...] | | needle and exchanged for 4 Kenyan short sheath over 0.03, angled | | | Glidewire. Subsequently, Glidewire was exchanged for 0.014, mailman | | | wire over 4 Kenyan angled glide catheter. Then, 4 mm x [...] Conversion - 10/19/2018 6:38 AM PDT [facility] | | FISTULAGRAM08/21/2014 6:01 PM HISTORY:18 [...] adequate conscious sedation and independent | | intermediate supervision performed throughout the procedure. PROCEDURE: Informed [...] micropuncture needle and exchanged | | for 4-Kenyan micropuncture sheath. Initial fistula pressure was obtained [...] | micropuncture needle and exchanged for 4 Kenyan short sheath over 0.03, angled | | Glidewire. Subsequently, Glidewire was exchanged for 0.014, mailman wire over 4 Kenyan | | angled glide catheter. Then, 4 [...] arterial venous | | anastomosis without incidence. 43540, 42616, 68784, 27911 | | | | | |76913, 77869, 50601, [address] | | | | | + + [...] venous anastomosis without incidence. | | | 98[address], [address], [address]388, [address]00 | | + + + + + [...] conscious sedation and | | | independent intermediate supervision performed throughout the | | | [...] | | | needle and exchanged for 4-Kenyan micropuncture sheath. Initial | | | fistula [...] | | needle and exchanged for 4 Kenyan short sheath over 0.03, angled | | | Glidewire. Subsequently, Glidewire was exchanged for 0.014, mailman | | | wire over 4 Kenyan angled glide catheter. Then, 4 mm x [...] Conversion - 10/19/2018 6:38 AM PDT [facility] | | FISTULAGRAM08/21/2014 6:01 PM HISTORY:18 [...] adequate conscious sedation and independent | | intermediate supervision performed throughout the procedure. PROCEDURE: Informed [...] micropuncture needle and exchanged | | for 4-Kenyan micropuncture sheath. Initial fistula pressure was obtained [...] | micropuncture needle and exchanged for 4 Kenyan short sheath over 0.03, angled | | Glidewire. Subsequently, Glidewire was exchanged for 0.014, mailman wire over 4 Kenyan | | angled glide catheter. Then, 4 [...] arterial venous | | anastomosis without incidence. 70920, 36233, 25147, 29267 | | | | | |99000, 61675, 27843, 53720 | | | | | + + documented in this encounter Visit Diagnoses + + | Diagnosis | + + | End stage renal disease (HCC) End stage renal disease | + + | Mechanical complication of other vascular device, implant, and graft | + + documented in this encounter"
--- OUTSIDE RECORDS SUMMARY | ~2019-03-12 | XMS | Encounter Summary ---
Demographics + + + | Address | [address] | | | [place] [address] | + + + | Home Phone [...] | | | | | [place] [address] | | + + + + + | Thania Mallory | ECON | [address] | | | | | [place] [address] | | + + + + + | Deidra Weldon | ECON | [address] | | | | | [place] | | | | | [address] | | + + + + + Care Team Providers + +------+ + | Care Real Estate Leasing Manager Name | Role | Phone [...] | | [address] | [facility] | | | | | [place], | [place], [place] | | | | | [place] [address] | [address] | | | | | [phone] | | | +--------+ + + + [...] Denise | | | | | | [place], [place] | | | | | | [address] | | | | | | [phone] | | | | | | | | +--------+ + + + + documented as of this encounter Visit Diagnoses Not on filedocumented in this encounter"
--- OUTSIDE RECORDS SUMMARY | ~2019-03-12 | XMS | Encounter Summary ---
Demographics + + + | Address | [address] | | | [place] [address] | + + + | Home Phone [...] | Author | [facility] | | | and [place] | + + + | Organization | [facility] | | | and [place]ana [...] Team Providers + +------+ + | Care Cable Mock Up Assembler Name | Role | Phone | [...] + + | 11/15/ | Telephone | [facility] | George Torres RN | Medication Problem | | 2019 | | [address] | | (CMN O2) | | | | [place] | | | | | | [address] | | | | | | [phone] | | | +--------+ + + + [...] DAV[place] | | | | | | [place] [address] | | | | | | [phone] | | | | | | | | +--------+---------+ + + + documented as of this encounter Visit Diagnoses Not on filedocumented in this encounter"
--- OUTSIDE RECORDS SUMMARY | ~2019-03-12 | XMS | Encounter Summary ---
Demographics + + + | Address | [address] | | | [place] [address] | + + + | Home Phone [...] | | | | | [place] [address] | | + + + + + | Thania Mallory | ECON | [address] | | | | | [place] [address] | | + + + + + | Deidra Weldon | ECON | [address] | | | | | [place] | | | | | [address] | | + + + + + Care Team Providers + +------+ + | Care Tape Calender Name | Role | Phone | + [...] | | | [address] | [address] | | | | | [address] [place], | [place], [place] | | | | | [place] [address] | [address] | | | | | [phone] | [phone] | | | | | | | [...] Denise | | | | | | [place], [place] | | | | | | [address] | | | | | | [phone] | | | | | | | | +--------+ + + + + documented as of this encounter Visit Diagnoses Not on filedocumented in this encounter"
--- OUTSIDE RECORDS SUMMARY | ~2019-03-12 | XMS | Encounter Summary ---
Demographics + + + | Address | [address] | | | [place] [address] | + + + | Home Phone [...] [facility] | | | and [place] | + + + | Organization | [facility] | | | and [...] Team Providers + +------+ + | Care Worm Packer Name | Role | Phone | [...] | NEPHROLOGY [address] | renal disease) ([facility]) | | | | [address] | [address] [place] | (Primary Dx); | | | | [place], [place] | [place] [address] | Depression | | | | [address] | [phone] | | | | | [phone] | | | +--------+ + + + [...] DAVIDSON | | | | | | [place] [address] | | | | | | [phone] | | | | | | | | +--------+---------+ + + + documented as of this encounter Visit Diagnoses + + | Diagnosis | + + | ESRD (end stage renal disease) (HCC) - Primary End stage renal disease | + + | Depression Depressive disorder, not elsewhere classified | + + documented in this encounter"
--- OUTSIDE RECORDS SUMMARY | ~2019-03-12 | XMS | Encounter Summary ---
Demographics + + + | Address | [address] | | | [place] [address] | + + + | Home Phone | | + + + | Preferred Language | Unknown | + + + | Marital Status | Single | + + + | Caodaism Affiliation | Unknown | + + + | Race | Unknown | + + + | Ethnic Group | Unknown | + + + Author + + + | Author | and [facility] | | | and [place] | + + + | Organization | [facility] | | | and [...] Team Providers + +------+ + | Care [employer] Executive Director Name | Role | Phone | [...] | | stage renal | [address] | [address] [place] [address] | | | | | disease) | Shun [place] | [place] | | | | | ([facility]) | [address] | [address] [place] | | | | | Anemia in | [place], [place] | [place] | | | | | ESRD | [address] | [address] Phone: | | | | | (end-stage | Phone: | [phone] | | | | | renal | [phone] | Fax: | | | | | disease) | Fax: | [phone] | | | | | ([facility]) | [phone] | | | | | | Procedures [...] M, DO [address] | renal disease) ([facility]) | | | | [address] | [place], [address] | (Primary Dx) | | | | [place], [place] | [place], [place] | | | | | [address] | [address] | | | | | [phone] | | | +--------+ + + + [...] She is see n on HD at [facility], with QB = 450. Unfortunately, she is consistently plagued by unexplained absenteeism from treatments. Despite having reliable transportation arranged b y the Framing Mechanic. She apparently still lacks meaningful plans for [...] last 3 mo. I think that her andreafski Dry wt = 97.5 kg? 3. SHPTH--not [...] our office, myself or Dr. Ibarra. : [place] Fina Joy M.D., Pediatric Nephrology, [facility] documented in t his encounter Plan [...] [place]SON | | | | | | [place] [address] | | | | | | [phone] | | | | | | | | +--------+---------+ + + + documented as of this encounter Visit Diagnoses + + | Diagnosis | + + | ESRD (end stage renal disease) (HCC) - Primary End stage renal disease | + + documented in this encounter"
--- OUTSIDE RECORDS SUMMARY | ~2019-03-12 | XMS | Encounter Summary ---
Demographics + + + | Address | [address] | | | [place] [address] | + + + | Home Phone [...] Author | [facility] | | | and [place] | + + + | Organization | [facility] | | | and [...] Team Providers + +------+ + | Care Beater Out Name | Role | Phone | + +------+ + PCP | Unavailable | + +------+ + Encounter Details +--------+ + + + + | Date | Type | Department | Care Team | Description | +--------+ + + + + | 12/27/ | Hospital | [facility] GENERIC OP | Sudhakar Joy | | | 2010 | Encounter | JOY | MD Emanuel [address] | | | | | [address] | [facility] | | | | | [address] | [place], [place] | | | | | [place], [place] | [address] | | | | | [address] | [phone] | | | | | [phone] | | | +--------+ + + + [...] DAVIDSON | | | | | | [place] [address] | | | | | | [phone] | | | | | | | | +--------+---------+ + + + documented as of this encounter Visit Diagnoses Not on filedocumented in this encounter"
--- OUTSIDE RECORDS SUMMARY | ~2019-03-12 | XMS | Encounter Summary ---
Demographics + + + | Address | [address] | | | [place] [address] | + + + | Home Phone [...] + | Author | [facility] | | | and [place] | + + + | Organization | [facility] | | | and [...] Team Providers + +------+ + | Care Slicing Machine Operator/Tender Name | Role | Phone | + +------+ + PCP | Unavailable | + +------+ + Encounter Details +--------+ + + + + | Date | Type | Department | Care Team | Description | +--------+ + + + + | 05/29/ | Hospital | [facility] | Conversion | End stage renal | | 2014 | Encounter | CENTER IR INTRA OP | Transaction, | disease (HCC) | | | | [address] | Provider Unknown | | | | | [place], [place] | | | | | | [address] | (Fax) | | | | | [phone] | | | +--------+ + + + [...] 05/29/141653 Date of Service: 05/29/141648 Status: Signed Sap Security Architect: Mesha Clark RN (Registered Nurse) Discharge criteria [...] [address] | | | | | | [address] | | | | | | [place] [address] | | | | | | [phone] | | | | | | | [...] Successful | | | placement of a 14.5-Samoan dual-lumen 19-cm tunneled hemodialysis | | | catheter with its tip in the upper portion of the right atrium without | | | incidence. 21622, 19973, [address]8796, 44964-37 Electronically | | | signed by Darryn [...] jugular vein. 3. Placement of 19 cm, 14.5-Samoan | | | dual-lumen tunneled palindrome hemodialysis [...] conscious sedation and | | | independent fdc supervision of the conscious sedation was | [...] records. 3. Upper chest radiograph shows dual-lumen, 14.5-Samoan, | | | 19-cm, tunneled dialysis catheter [...] | micropuncture needle and exchanged for a 4-Samoan micropuncture sheath | | | over a 0.018 wire. Skin in the infraclavicular region was | | | infiltrated with 1% lidocaine and a 5-mm skin incision was made. A | | | 14.5-Samoan, dual-lumen, 19-cm tunneled hemodialysis catheter was | | | placed a subcutaneous tunnel using a metallic tunneler. The 4-Samoan | | | sheath was exchanged for a 0.035, 3-mm J-wire with its tip in the | | | right atrium under fluoroscopy guidance. The skin and subcutaneous | | | tract was dilated using at 12 and 14-Samoan facial dilators. A | | | 15-Samoan peel-away sheath was placed over the wire [...] Steele Conversion - 10/19/2018 6:38 AM PDT DARA [...] vein.3. Placement of 19 | | cm, 14.5-Samoan dual-lumen tunneled palindrome hemodialysis catheter in the [...] maintenance of adequate conscious sedation and independent fdc | | supervision of the conscious sedation [...] Upper chest radiograph shows dual-lumen, | | 14.5-Samoan, 19-cm, tunneled dialysis catheter with its tip [...] needle and exchanged for | | a 4-Samoan micropuncture sheath over a 0.018 wire. Skin in the infraclavicular region | | was infiltrated with 1% lidocaine and a 5-mm skin incision was made. A 14.5-Samoan, | | dual-lumen, 19-cm tunneled hemodialysis catheter was placed a subcutaneous tunnel using | | a metallic tunneler. The 4-Samoan sheath was exchanged for a 0.035, 3-mm J-wire with | | its tip in the right atrium under fluoroscopy guidance. The skin and subcutaneous tract | | was dilated using at 12 and 14-Samoan facial dilators. A 15-Samoan peel-away sheath | | was placed over [...] veins.2. Successful placement | | of a 14.5-Samoan dual-lumen 19-cm tunneled hemodialysis catheter with its tip in the | | upper portion of the right atrium without incidence. 33695, 12933, 13452, 50215-72 | | | |2. Successful placement of a 14.5-Samoan dual-lumen 19-cm tunneled hemodialysis catheter w ith its tip in the upper portion of the right atrium without incidence. | | | |[address]4431, 47022, 29937, 42642-42 | | | | | + + documented in this encounter Visit Diagnoses + + | Diagnosis | + + | End stage renal disease (HCC) End stage renal disease | + + documented in this encounter"
--- OUTSIDE RECORDS SUMMARY | ~2019-03-12 | XMS | Encounter Summary ---
Demographics + + + | Address | [address] | | | [place] [address] | + + + | Home Phone [...] + | Author | [facility] | | | and [place] | + + + | Organization | [facility] [...] Team Providers + +------+ + | Care Barrel Plater Name | Role | Phone | + [...] NEPHROLOGY [address] | M, DO [address] | | | | | [address] | [place], [address] | | | | | [place], [place] | [place], [place] | | | | | [address] | [address] | | | | | [phone] | | | +--------+ + + + [...] PSTOutside record: New patient starter program from [facility], dos: 02/12/17. [facility].Electronically signed by Marilyn Palumbo at 017 8:58 [...] DAV[place]SON | | | | | | [place] [address] | | | | | | [phone] | | | | | | | | +--------+---------+ + + + documented as of this encounter Visit Diagnoses Not on filedocumented in this encounter"
--- OUTSIDE RECORDS SUMMARY | ~2019-03-12 | XMS | Encounter Summary ---
Demographics + + + | Address | [address] | | | [place] [address] | + + + | Home Phone [...] | Author | [facility] | | | and Josephana | + + + | Organization | [facility] | | | and [...] Providers + +------+ + | Care Manager Steel Name | Role | Phone | + [...] + + | 11/06/ | Hospital | [facility] | Johnathan Brooks, | Chronic right-sided | | 2019 - | Encounter | [facility] | MD Brooks TORRES | heart failure (HCC) | | | | CARE FLOOR [address] | [place] [address] | (Primary Dx); Acute | | 11/09/ | | [address] | [phone] | hypoxemic | | 2019 | | [place], [place] | | respiratory failure | | | | [address] | Darell Kowalski MD | (HCC); Chronic | | | | [phone] | [address] | 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 | | | | | [phone] | failure (HCC); | | | | | | 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 | | | | | | ([facility]); ESRD on | | | | | | hemodialysis ([facility]); | | | | | | Moderate to severe | | | | | | pulmonary | | | | | | hypertension ([facility]); | | [...] | | | | | | function ([facility]); | | | | | | Non-compliance; | | | | | | Troponin I above | | | | | | reference range; | | | | | | Anemia in ESRD | | | | | | (end-stage renal | | | | | | disease) ([facility]); At | | | | | | [...] might be different fr om the original. [facility] Service: Medicine DISCHARGE SUMMARY Primary [...] be evaluated at local emergency room at [facility]. In the ER patient was evaluated [...] transferred with the patient's paper documentation from [facility] ER). Initial labs: WBC 6.5, hemoglobin 11.0, [...] suggesting of edema. Taken from Dr. Brooks [facility] (11/06/2018) HOSPITAL COURSE Patient was admitted [...] Left; Surgeon: Blake Chavarria MD ; Location: [facility] MAIN OR AV FISTULA REPAIR Left 03/07/2014 Procedure: AV FISTULA - GRAFT REPAIR/REVISION; Surgeon: Rik Simon MD; Location: [facility]; Service: Vascular; Laterality: Left; biopsy of kidney age 10 DIALYSIS FISTULA CREATION 04/08/2014 Procedure: DIALYSIS CATHETER - INSERTION; Surgeon: Rik Simon MD; Location: [facility] ; Service: Vascular; Laterality: N/A; tunneled catheter.br hemodialysis catheter KIDNEY BIOPSY Left 2003 OTHER SURGICAL HISTORY LAPAROSCOPIC PERITONEAL DIALYSIS CATHETER INSERTION - x2 OTHER SURGICAL HISTORY Right 07/2013 LAPAROSCOPIC PERITONEAL DIALYSIS CATHETER INSERTION - current dialysis access MWF dialysis OTHER SURGICAL HISTORY Left 06/24/2014 SUPERFICIALIZATION OF AV FISTULA - Procedure: AV FISTULA - SUPERFICIALIZATION; Surgeon: Emanuel Simon MD; Location: [facility] OR; Service: Vascular; Laterality: Left; OTHER SURGICAL HISTORY Left 04/08/2014 AV FISTULA PLACEMENT - Procedure: AV FISTULA; Surgeon: Rik Simon MD; Location: [facility]; Service: Vascular; Laterality: Left; cephalic OTHER SURGICAL HISTORY Left 03/07/2014 DECLOT GRAFT - Procedure: GRAFT - DECLOT; Surgeon: Rik Simon MD; Location: [facility] ; Service: Vascular; Laterality: Left; peritoneal catheter [...] Value Units Date/Time Culture, Body Fluid Sterile [[id number]] Collected: 11/07/18 1515 Order Status: Completed Lab Status: Preliminary result Updated: 11/09/18 1412 Specimen: Body Fluid from Pleural Fluid, Right Special Requests RIGHT SIDE Special Requests Testing performed at [facility];[address] [place] [address] Gram Stain Result NO CELLS OR ORGANISMS SEEN RESULT NO GROWTH 2 DAYS RESULT Testing performed at [facility], [address] [place] [address] Comment: Testing performed at [facility], [address] [place] [address] Culture, Body Fluid Sterile [[id number]] Order Status: Canceled Lab Status: No result [...] Discontinued Medications valsartan 40 mg tablet aka: DANIEL Follow Up: Jonathan Alonso MD [address] [facility] [place] [id number] In 1 week René Anguiano MD [address] [facility] [address] [place] [address] In 1 week Discharge took 60 minutes, to include final examination, discussion of admission, and prepa ration of prescriptions, instructions for on-going care, follow up and documentation of disc harge summary. Discharge summary prepared in conjunction with medical student Yefri Meek, MS3. Tejinder Solano MD 11/09/2018 Associated attestation - Darell Kowalski MD - 11/09/2018 4:49 PM PDTAttending: Pt is seen and examined with resident. Discussed with the resident and agree with the resid ent's findings and plan as documented in the resident's note.Laboratory tests and radiology images have been independently reviewed and confirmed. My thoughts have been incorporated in the above-mentioned note. Darell Kowalski MD, MD documented in this encounter Medications at Time [...] her sister. DME equipment order sent to [facility]. She refused oxygen delivery to the h ospital saying that she just wanted to go home. Orders state 1L for ambulating only.Electron ically signed by Daniela Vyas RN at 11/09/2018 3:47 PM nAival Patten RRT - 019 12:45 PM PDT [...] of diet restrictions. Kimberly Lyons RN 18:58 Electroni cortez signed by Kimberly Lyons RN at 11/08/2018 [...] UF. Hypervolemia has improved with HD/UF/thoracentesis. Acute OR has been ruled out. Recommendations: Plan for [...] for continuity of chart review/care. Dictation software, [employer], was used which may contain error for [...] sevelamer carbonate 1,600 [address] Oral T[address] WC Dr[address] Gupta will assume nephrology care as of 8 PM tonight. Yefri Andres, Medical Student - 11/08/2018 1:05 PM PDTFormatting of this note might be different from the [facility] Inpatient Progress Note Pt: Dara Louise AGE/SEX: 23 y.o. ROOM: [facility]/8125- : 1995 PCP: Jonathan Alonso MD PATIENT [...] attestation - Darell Kowalski MD - 11/08/2018 5:28 PM PDTAttending: Pt is seen and examined with student. Discussed and agree with the findings and plan as do cumented in the note.Laboratory tests and radiology images have been independently reviewed and confirmed. My thoughts have been incorporated in the above-mentioned note. She is feeli ng better. Darell Scott. MD Dex, MD Duarte, MD Cliff - 11/07/2018 10:24 [...] hypervolemic and has recurrent hyperkalemia/metabolic acidosis. Acute OR has been ruled out. Recommendations: Plan for [...] for continuity of chart review/care. Dictation software, [employer], was used which may contain error for [...] Pt: Dara Louise AGE/SEX: 23 y.o. ROOM: [address] [place] [address] : 1995 PCP: Jonathan Alonso MD PATIENT [...] and dyspnea. The patient was seen at [facility] ER and then transferred to our internal [...] attestation - Darell Kowalski MD - 11/07/2018 2:55 PM PDTAttending: Pt is [...] [address] | | | | | | [place] [address] | | | | | | [phone] | | | | | | | [...] + | Billie Gupta MD 11/09/2018 9:34 [facility] | | | Center Hemo-Dialysis Procedure note [...] | | . 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 Punch Out Crew Member 240 | | | Constitutional: pt appears [...] ANDREY | | | | performed at [facility], [address] | | LABORATORY | | | | [address], | | | | | | [place] [address] | | | | + + + + + + + + | Specimen | + + | Blood | + + + + + + + | Performing | Address | City/State/Zipcode | Phone Number | | Organization | | | | + + + + + | [facility] | [address] | [place] [address] | [phone] | + + + + + Comprehensive [...] | | | | performed at [facility], [address] | | | | | | [address] [facility], | | | | | | [place] [address] | | | | + + + + + + + + | Specimen | + + | Blood | + + + + + + + | Performing | Address | City/State/Zipcode | Phone Number | | Organization | | | | + + + + + | [facility] | [address] | [place] [address] | [phone] | + + + + + CBC [...] LABORATORY | | | | performed at [facility], [address] | | | | | | [address], | | | | | | [place] [address] | | | | | | | | | | + + + + + + + + | Specimen | + + | Blood | + + + + + + + | Performing | Address | City/State/Zipcode | Phone Number | | Organization | | | | + + + + + | [facility] | [address] | [place] [address] | [phone] | + + + + + Protime INR (11/09/2018 4:14 AM PDT) + + + + + + | Component | Value | Ref Range | Performed | Pathologist | | | | | At | Signature | + + + + + + | INR | 1.3Comment: REFERENCE | | [facility] | | | | RANGE:0.9 - [...] | | | | | performed at [facility];[address];[place] | | | | | | [address] | | | | + + + + + + + + | Specimen | + + | Blood | + + + + + + + | Performing | Address | City/State/Zipcode | Phone Number | | Organization | | | | + + + + + | [facility] | [address] | [place] [address] | [phone] | + + + + + Comprehensive [...] 9 (L)Comment: GFR <60: | >60 | [facility] | | | GFR | [...] | | | | performed at [facility], [address] | | | | | | [facility], | | | | | | [place] [address] | | | | + + + + + + + + | Specimen | + + | Blood | + + + + + + + | Performing | Address | City/State/Zipcode | Phone Number | | Organization | | | | + + + + + | [facility] | [address] | [place] [address] | [phone] | + + + + + CBC [...] | | | | | | at [facility], [address] | | [address] | [address], | | | | | | [place] [address] | | | | | |Testing performed at [facility], [address], [place] [address] | | | | | | | | | | + + +---- + + + + + | Specimen | + + | Blood | + + + + + + + | Performing | Address | City/State/Zipcode | Phone Number | | Organization | | | | + + + + + | [facility] | [address] | [place] [address] | [phone] | + + + + + Protime [...] | | | | | performed at [facility] | | | | | | [address] [facility];[place], [place] | | | | | | [address] | | | | + + + + + + + + | Specimen | + + | Blood | + + + + + + + | Performing | Address | City/State/Zipcode | Phone Number | | Organization | | | | + + + + + | [facility] | [address] | [place] [address] | [phone] | + + + + + XR [...] of Dr. Du | | | Cole ALMEIDA/PhD. Prior to the procedure, risks and [...] is | | | punctured with an 5-Greek thoracentesis catheter. Fluid is aspirated | | [...] the pleural space is punctured with an 5-Greek | | thoracentesis catheter. Fluid is aspirated [...] | | | | Signed by: Eliza Galvan, Florian | | Sign Date/Time: 11/07/2018 3:51 PM [...] Special | Testing performed at | | [facility] | | | Requests | [facility];[address] | | LABORATORY | | | | [address];[place] [address] | | | | + + + + + + | Gram Stain | NO CELLS OR ORGANISMS | | [facility] | | | Result | SEEN | | LABORATORY | | + + + + + + | RESULT | NO GROWTH 4 DAYS | | [facility] | | | | | | LABORATORY | | + + + + + + | RESULT | Testing performed at | | [facility] | | | | [facility], [address] [facility] | | LABORATORY | | | | [place] | | | | | | [id number]: Testing | | | | | | performed at [facility], [address] | | | | | | [place] | | | | | | [address] | | | | + + + + + + + + | Specimen | + + | Body Fluid - Pleural | | fluid specimen | | (specimen) | + + + + + + + | Performing | Address | City/State/Zipcode | Phone Number | | Organization | | | | + + + + + | [facility] | [address] | [place] [address] | [phone] | + + + + + Protein, Body Fluid (11/07/2018 3:15 PM PDT) + + + + + + | Component | Value | Ref Range | Performed | Pathologist | | | | | At | Signature | + + + + + + | Protein, BF | 3.4Comment: This is not | g/dL | [facility] | | | | a lead architect validated | | LABORATORY | | | | sample type for this | | | | | | method. No | | | | | | referenceranges have | | | | | | been established.Testing | | | | | | performed at [facility], [address] | | | | | [address], | | | | | | [place] [address] | | | | + + + + + + | SOURCE | PLEURAL FLUIDComment: | | [facility] | | | | Testing performed at | | LABORATORY | | | | [facility];[address] [facility] | | | | | | [address];[place] [address] | | | | + + + + + + + + | Specimen | + + | Body Fluid | + + + + + + + | Performing | Address | City/State/Zipcode | Phone Number | | Organization | | | | + + + + + | [facility] | [address] | [place] [address] | [phone] | + + + + + Lactate [...] [facility] | | | FLUID | a lead architect validated | | LABORATORY | | | | sample type for this | | | | | | method. No | | | | | | referenceranges have | | | | | | been established.Testing | | | | | | performed at [facility], [address] | | | | | [address] [facility], | | | | | | [place] [address] | | | | + + + + + + + + | Specimen | + + | Body Fluid | + + + + + + + | Performing | Address | City/State/Zipcode | Phone Number | | Organization | | | | + + + + + | [facility] | [address] [facility] | [place] [address] | [phone] | + + + + + Glucose, Body Fluid (11/07/2018 3:15 PM PDT) + + + + + + | Component | Value | Ref Range | Performed | Pathologist | | | | | At | Signature | + + + + + + | Glucose | 96Comment: This is not a | mg/dL | [facility] | | | Fluid | lead architect validated | | LABORATORY | | | | sample type for this | | | | | | method. No | | | | | | referenceranges have | | | | | | been established.Testing | | | | | | performed at [facility], [address] | | | | | [address], | | | | | | [place] [address] | | | | + + + + + + | SOURCE | PLEURAL FLUIDComment: | | [facility] | | | | Testing performed at | | LABORATORY | | | | [facility];[address] | | | | | | [address];[place] [address] | | | | + + + + + + + + | Specimen | + + | Body Fluid | + + + + + + + | Performing | Address | City/State/Zipcode | Phone Number | | Organization | | | | + + + + + | [facility] | [address] | [place] [address] | [phone] | + + + + + Cell [...] + + + | BF RBC | <74565 | /mm3 | [facility] | | | [...] | | | Counted | performed at [facility] | | LABORATORY | | | | [address];[place], [place] | | | | | | [address] | | | | + + + + + + + + | Specimen | + + | Body Fluid | + + + + + + + | Performing | Address | City/State/Zipcode | Phone Number | | Organization | | | | + + + + + | [facility] | [address] | [place] [address] | [phone] | + + + + + Amylase, Body Fluid (11/07/2018 3:15 PM PDT) + + + + + + | Component | Value | Ref Range | Performed | Pathologist | | | | | At | Signature | + + + + + + | AMYLASE | 46Comment: This is not a | U/L | [facility] | | | FLUID | lead architect validated | | LABORATORY | | | | sample type for this | | | | | | method. No | | | | | | referenceranges have | | | | | | been established.Testing | | | | | | performed at [facility], [address] | | | | | [address] [facility], | | | | | | [place] [address] | | | | + + + + + + + + | Specimen | + + | Body Fluid | + + + + + + + | Performing | Address | City/State/Zipcode | Phone Number | | Organization | | | | + + + + + | [facility] | [address] | [place] [address] | [phone] | + + + + + Albumin, Body Fluid (11/07/2018 3:15 PM PDT) + + + + + + | Component | Value | Ref Range | Performed | Pathologist | | | | | At | Signature | + + + + + + | Albumin, | 2.0Comment: This is not | g/dL | [facility] | | | Fluid | a lead architect validated | | LABORATORY | | | | sample type for this | | | | | | method. No | | | | | | referenceranges have | | | | | | been established.Testing | | | | | | performed at [facility], [address] | | | | | | [address] [facility], | | | | | | [place] [address] | | | | + + + + + + + + | Specimen | + + | Body Fluid | + + + + + + + | Performing | Address | City/State/Zipcode | Phone Number | | Organization | | | | + + + + + | [facility] | [address] | [place] [address] | [phone] | + + + + + Medical Cytology (11/07/2018 3:15 PM PDT) + + | Specimen | + + | Body Fluid - Pleural | | fluid specimen | | (specimen) | + + + + + | Narrative | Performed At | + + + | ORDERING | [facility] | | PHYSICIAN:Dex ALMEIDA, Darell Scott PATIENT NAME:DARA LOUISEEGENDER: | INCYTE | | F : 1995 SPECIMEN(S): A [...] preparation was | | | performed by [employer], [address] | | | [place] [address] (Vice President Of Talent Acquisition: Matt Claudio D.O.; CLIA#: | | | [id number]).Professional interpretation was performed by [employer] | | | [employer], | | | [facility] (Vice President Of Talent Acquisition: Daniel Larson M.D.; CLIA#: | | | [id number]).6 Diagnostician: Enrrique Nichols | | | CT(ASCP)CytotechnologistDiagnostician: Daniel Larson | | | MDPathologistElectronically Signed 11/13/2018 | | |DESCRIPTION: | | |The preparations contain mesothelial cells, rare inflammatory cells, and acellular proteina ceous material. Atypical cytologic findings are not encountered. | | | | | |SPECIMEN ADEQUACY: | | |Satisfactory for Evaluation | | | | | |PERFORMING LABORATORY: | | |Technical preparation was performed by [employer], [address] [employer] [address] (Vice President Of Talent Acquisition: Matt Claudio D.O.; CLIA#: [id number]). | | |Professional interpretation was performed by [employer] [address] (Vice President Of Talent Acquisition: Daniel Larson M.D.; CLIA#: [id number]).6 | | | | | |Diagnostician: Enrrique BROOKS(ASCP) | | |[employer] | | |Diagnostician: Daniel Larson MD | [...] 07-NOV-2018 | | | | | | 04:16,Incomplete [...] at | | | | | | [facility];[address] [facility] | | | | | | [address];[place] [address] | | | | + + + + + + + + | Specimen | + + | Blood | + + + + + + + | Performing | Address | City/State/Zipcode | Phone Number | | Organization | | | | + + + + + | [facility] | [address] | [place] [address] | [phone] | + + + + + ECG [...] | INR | 1.3Comment: REFERENCE | | [facility] | | | | RANGE:0.9 - [...] | | | | | performed at [facility];[address] | | | | | | [address] [facility];[place], [place] | | | | | | [address] | | | | + + + + + + + + | Specimen | + + | Blood | + + + + + + + | Performing | Address | City/State/Zipcode | Phone Number | | Organization | | | | + + + + + | [facility] | [address] | [place] [address] | [phone] | + + + + + Platelet Count (11/07/2018 4:03 AM PDT) + + + + + + | Component | Value | Ref Range | Performed | Pathologist | | | | | At | Signature | + + + + + + | Platelet | 185Comment: Testing | 150 - 400 K/uL | [facility] | | | Count | performed at [facility], [address] | | LABORATORY | | | | [address], | | | | | | [place] [address] | | | | + + + + + + + + | Specimen | + + | Blood | + + + + + + + | Performing | Address | City/State/Zipcode | Phone Number | | Organization | | | | + + + + + | [facility] | [address] | [place] [address] | [phone] | + + + + + PTT (11/07/2018 4:03 AM PDT) + + + + + + | Component | Value | Ref Range | Performed | Pathologist | | | | | At | Signature | + + + + + + | PTT | 27Comment: Testing | 23 - 32 seconds | [facility] | | | | performed at [facility];[address] | | LABORATORY | | | [address];[place] | | | | | | [address] | | | | + + + + + + + + | Specimen | + + | Blood | + + + + + + + | Performing | Address | City/State/Zipcode | Phone Number | | Organization | | | | + + + + + | [facility] | [address] | [place] [address] | [phone] | + + + + + Lactate Dehydrogenase (11/07/2018 4:03 AM PDT) + + + + + + | Component | Value | Ref Range | Performed | Pathologist | | | | | At | Signature | + + + + + + | LDH TOTAL | 202Comment: Testing | 120 - 246 U/L | [facility] | | | | performed at [facility];[address] | | LABORATORY | | | | [address];[place] | | | | | | [address] | | | | + + + + + + + + | Specimen | + + | Blood | + + + + + + + | Performing | Address | City/State/Zipcode | Phone Number | | Organization | | | | + + + + + | [facility] | [address] | [place] [address] | [phone] | + + + + + Magnesium (11/07/2018 4:03 AM PDT) + + + + + + | Component | Value | Ref Range | Performed | Pathologist | | | | | At | Signature | + + + + + + | Magnesium | 2.3Comment: Testing | 1.7 - 2.4 mg/dL | [facility] | | | | performed at [facility];[address] | | LABORATORY | | | | [address];[place], [place] | | | | | | [address] | | | | + + + + + + + + | Specimen | + + | Blood | + + + + + + + | Performing | Address | City/State/Zipcode | Phone Number | | Organization | | | | + + + + + | [facility] | [address] | [place] [address] | [phone] | + + + + + Comprehensive [...] 7 (L)Comment: GFR <60: | >60 | [facility] | | | GFR | [...] | | | | | | MDRD IDGA traceable | | | | | | equation.Testing | | | | | | performed at [facility], [address] | | | | | | [facility], | | | | | | [place] [address] | | | | + + + + + + + + | Specimen | + + | Blood | + + + + + + + | Performing | Address | City/State/Zipcode | Phone Number | | Organization | | | | + + + + + | [facility] | [address] | [place] [address] | [phone] | + + + + + Troponin I (11/06/2018 9:54 PM PDT) + + + + + + | Component | Value | Ref Range | Performed | Pathologist | | | | | At | Signature | + + + + + + | Troponin I | 0.045 (H)Comment: 0.04 | 0.00 - 0.04 | [facility] | | | | ng/mL [...] at | | | | | | [facility];[address];[place] [address] | | | | + + + + + + + + | Specimen | + + | Blood | + + + + + + + | Performing | Address | City/State/Zipcode | Phone Number | | Organization | | | | + + + + + | [facility] | [address] | [place] [address] | [phone] | + + + + + Protime [...] | | | | | performed at [facility] | | | | | | [address];[place], [place] | | | | | | [address] | | | | + + + + + + + + | Specimen | + + | Blood | + + + + + + + | Performing | Address | City/State/Zipcode | Phone Number | | Organization | | | | + + + + + | [facility] | [address] | [place] [address] | [phone] | + + + + + ECHO [...] (H)Comment: 0.04 | 0.00 - 0.04 | [facility] | | | | ng/mL [...] at | | | | | | [facility];[address] [place] [address] | | | | | | [facility];[place] [address] | | | | + + + + + + + + | Specimen | + + | Blood | + + + + + + + | Performing | Address | City/State/Zipcode | Phone Number | | Organization | | | | + + + + + | [facility] | [address] | [place] [address] | [phone] | + + + + + Magnesium (11/06/2018 3:57 PM PDT) + + + + + + | Component | Value | Ref Range | Performed | Pathologist | | | | | At | Signature | + + + + + + | Magnesium | 2.4Comment: Testing | 1.7 - 2.4 mg/dL | [facility] | | | | performed at [facility], [address] | | LABORATORY | | | | Opal Torres, | | | | | | [place] [address] | | | | + + + + + + + + | Specimen | + + | Blood | + + + + + + + | Performing | Address | City/State/Zipcode | Phone Number | | Organization | | | | + + + + + | [facility] | [address] | [place] [address] | [phone] | + + + + + documented in this encounter Visit Diagnoses + + | Diagnosis | + + | Pulmonary edema with congestive heart failure with reduced left ventricular function | | (HCC) - Primary Congestive heart failure, unspecified | + + | Acute hypoxemic respiratory failure ([facility]) | + + | Chronic combined systolic [...] | | | | | dose on Mon11/07/18 at 0900 | | PM PDT | [...] | | | | | Intravenous, ONCE, Mon11/06/18 at | | PM PDT | | [...] | Intravenous, ONCE, Mon11/07/18 at | | AM PDT | | [...] | | | | | Vomiting, Starting Tu 11/06/18 at | | | | | [...] PRN, Nausea, Vomiting, | | | Starting [facility] 11/07/18 at 1401 | | + +---+ | | | + +---+ + +-------+ +------+---+---+ | oxyCODONE (ROXICODONE) tablet 5 | Given | 11/10/19 | 5 mg | | | | mg 5 mg, Oral, EVERY 4 HOURS | | 19 8:54 | | | | | PRN, Pain, Moderate Pain, | | AM PDT | | | | | Starting Mon11/06/18 at 1955 | | | | | [...] AM PDT | | | | | Mon11/06/18 at 1730, Do not cut or | [...]
--- OUTSIDE RECORDS SUMMARY | ~2019-03-12 | XMS | Encounter Summary ---
Demographics + + + | Address | [address] | | | [place] [address] | + + + | Home Phone [...] | | | | | [place] [address] | | + + + + + | Thania Mallory | ECON | [address] | | | | | [place] [address] | | + + + + + | Deidra Weldon | ECON | [address] | | | | | [place] | | | | | [address] | | + + + + + Care Team Providers + +------+ + | Care Library Director Name | Role | Phone | [...] | | | | | [place], | [place], [place] | | | | | [place] [address] | [address] | | | | | [phone] | | | +--------+ + + + [...] Denise | | | | | | [place] | | | | | | [address] | | | | | | [phone] | | | | | | | | +--------+ + + + + documented as of this encounter Visit Diagnoses Not on filedocumented in this encounter"
--- OUTSIDE RECORDS SUMMARY | ~2019-03-12 | XMS | Encounter Summary ---
Demographics + + + | Address | [address] | | | [place] [address] | + + + | Home Phone [...] | | | | | [place] [address] | | + + + + + | Thania Mallory | ECON | [address] | | | | | [place] [address] | | + + + + + | Deidra Weldon | ECON | [address] | | | | | [place] | | | | | [address] | | + + + + + Care Team Providers + +------+ + | Care Inspector Of Weights And Measures Name | Role | Phone | + [...] | | | | [address] | [facility] | | | | | [place], | [place], [place] | | | | | [place] [address] | [address] | | | | | [phone] | | | +--------+ + + + [...] Denise | | | | | | [place] | | | | | | [address] | | | | | | [phone] | | | | | | | | +--------+ + + + + documented as of this encounter Visit Diagnoses Not on filedocumented in this encounter"
--- OUTSIDE RECORDS SUMMARY | ~2019-03-12 | XMS | Encounter Summary ---
Demographics + + + | Address | [address] | | | [place] [address] | + + + | Home Phone [...] | | | | | [place] [address] | | + + + + + | Thania Mallory | ECON | [address] | | | | | [place] [address] | | + + + + + | Deidra Weldon | ECON | [address] | | | | | [place] | | | | | [address] | | + + + + + Care Team Providers + +------+ + | Care Parts Cataloguer Name | Role | Phone | + [...] | Nephrology at | MD Emanuel [address] | f/u appt on | | | | Alexander | [address] | 03/16/12 to [place]) | | | [facility] | [facility] [place] | | | | | [address] | [address] | | | | | Mailcode: DCAnna | [phone] | | | | | Alexander | | | | | | [place], [place] | | | | | | [address] | | | | | | [phone] | | | +--------+ + + + [...] Denise | | | | | | [place], [place] | | | | | | [address] | | | | | | [phone] | | | | | | | | +--------+ + + + + documented as of this encounter Visit Diagnoses Not on filedocumented in this encounter"
--- OUTSIDE RECORDS SUMMARY | ~2019-03-12 | XMS | Encounter Summary ---
Demographics + + + | Address | [address] | | | [place] [address] | + + + | Home Phone [...] Author | [facility] | | | and [place] | + + + | Organization | [facility] | [...] Team Providers + +------+ + | Care Side Trimmer Name | Role | Phone | [...] | stage renal | [address] | [address] [place] [address] | | | | | disease) | Shun Griffin | [place] | | | | | ([facility]) | [address] | [address] [place] | | | | | Anemia in | [place], [place] | [place] | | | | | ESRD | [address] | [address] Phone: | | | | | (end-stage | Phone: | [phone] | | | | | renal | [phone] | Fax: | | | | | disease) | Fax: | [phone] | | | | | ([facility]) | [phone] | | | | | | Procedures [...] DO [address] | renal disease) ([facility]) | | | | [address] | [place], [address] | (Primary Dx) | | | | [place], [place] | [place], [place] | | | | | [address] | [address] | | | | | [phone] | | | +--------+ + + + [...] uding the charge nurse, staff nurses, PCT's, face worker, dietitian myself she fails to heed any [...] today in Plan: 1. Will continue to diet counselor her about her high risk for cardiovascular morbidity and compl ications given her lack of full compliance with her treatment. 2. The renal STATION MANAGER has been attempting to reach her. However, [...] [address] | | | | | | [place] [address] | | | | | | [phone] | | | | | | | | +--------+---------+ + + + documented as of this encounter Visit Diagnoses + + | Diagnosis | + + | ESRD (end stage renal disease) (HCC) - Primary End stage renal disease | + + documented in this encounter"
--- OUTSIDE RECORDS SUMMARY | ~2019-03-12 | XMS | Encounter Summary ---
Demographics + + + | Address | [address] | | | [place] [address] | + + + | Home Phone [...] Author | [facility] | | | and [place] | + + + | Organization | [facility] | | [...] Team Providers + +------+ + | Care Camp Cook Name | Role | Phone | + [...] | Procedures | [place], [place] | [place] [address] | | | | | [place] | [address] | Phone: | | | | | ANASTOMOSIS, | Phone: | [phone] | | | | | [address] | [phone] | Fax: | | | | | | Fax: | [phone] | | | | | | [phone] | | +--------+ + + + + [...] | | | | | disease) | [place], [place] | [address] | | | | | ([facility]) | [address] [place] | [place], | | | | | | [place], [place] | [place] [address] | | | | | | [address] | Phone: | | | | | | Phone: | [phone] | | | | | | [phone] | Fax: | | | | | | Fax: | [phone] | | | | | | [phone] | | +--------+ + + + + + Encounter Details +--------+---------+ + + + | Date | Type | Department | Care Team | Description | +--------+---------+ + + + | 12/18/ | Office | [facility] | Blake | End stage renal | | 2013 | Visit | SURGERY [address] | MD Antonieta, FACS [address] | disease (HCC) | | | | [address] [place], [place] | [address] [facility] | (Primary Dx) | | | | [address] | [place] [address] | | | | | [phone] | [phone] | | | | | | | [...] Care ? Shahid Camargo Who is your Quill Machine Operator/Kidney Specialist ? Dr. Camp When was the current dialysis access placed? July 2013 at [facility] in [place] What problems are there with the current dialysis access? 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 Patient used to have PD catheter for dialysis 2012--[facility] in [place] . Came out Jul, 2013 . Then got RIGHT IJ catheter. Also got catheter at [facility]. Live in [place]. Go es to [facility] in [place] for dialysis. Now needs AVF. Is RIGHt hand dominant. No pains in hands. 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 Currently on [facility] for kidney transplant. Wants AVF in LEFT [...] ed for acceptable candidacy. Will f/u with [facility] Transplant Team. Shahid Cruz Raman's notes were not available to be reviewed in clinic today. PAST MEDICAL HISTORY Past Medical History She has a past medical history of HSP (Henoch-Schonlein purpura) nephritis (HCC) (1987) and ESRD (end stage renal disease) ([facility]). Past Surgical History She Past [...] REPORT: PATIENT NAME : Dara Weldon EQUIPMENT: [employer] M-Turbo with 10-5 mHertz probe. INDICATIONS: Dialysis [...] [address] | | | | | | [place] [address] | | | | | | [phone] | | | | | | | [...]
--- OUTSIDE RECORDS SUMMARY | ~2019-03-12 | XMS | Encounter Summary ---
Demographics + + + | Address | [address] | | | [place] [address] | + + + | Home Phone [...] Author | [facility] | | | and Josephana | + + + | Organization | [facility] | | [...] Team Providers + +------+ + | Care Ground Water Technician Name | Role | Phone | + +------+ + | Tien Nicholson MD | PCP | | + +------+ + Encounter Details +--------+ + + + + | Date | Type | Department | Care Team | Description | +--------+ + + + + | 05/26/ | Hospital | [facility] | Mayco Rizvi MD | Chest pain, | | 2019 - | Encounter | [facility] | [address] [place] | unspecified type; | | | | CARE FLOOR [address] | [address] [place], [place] | Hypoalbuminemia; | | 06/01/ | | [address] | [address] | Anemia in ESRD | | 2019 | | [place], [place] | | (end-stage renal | | | | [address] | | disease) ([facility]); | | | | [phone] | | End-stage renal | | | | | | disease on | | | | | | hemodialysis ([facility]); | | | | | | Pleural [...] | | | failure) ([facility]) | +--------+ + + + + Social [...] Date of Service: 06/01/18 0959 Status: Addendum Access Nurse: Darell Rossi MD (Physician) Related Notes: Original Note by Darell Rossi MD (Physician) filed at 06/04/18 9941 [facility] Service: Hospitalist Physician Discharge Summary Pt: Dara Louise AGE/SEX: 23 y.o. female ROOM: [address] [place] [address] PCP: TIEN NICHOLSON : 1995 Admit date: [...] 17. The mitral valve is normal. 18. Sbpd-hf-lzote ate eccentric mitral regurgitation is present. 19. [...] anemia of chronic disease who went to [facility] with increasing shortness of breath found to have right pleural effusion who was transfer red to [facility] underwent right-sided diagnostic and therapeutic thoracocentesis [...] hyperkalemia with that. I discussed with the keyseating machine set up operator as well regarding not being on [...] Component Value Units Date/Time Culture, Body Fluid [[id number]] Collected: 05/26/18 1412 Specimen: Body Fluid from Pleural Fluid Updated: 05/30/18 0733 Specimen Description PLEURAL FLUID GRAM STAIN WBC'S SEEN GRAM STAIN NO ORGANISMS SEEN GRAM STAIN STAIN PERFORMED ON CYTOSPIN CULTURE NO GROWTH 4 DAYS Culture, Body Fluid [[id number]] Collected: 05/26/18 1513 Specimen: Other from Ascites Fluid Updated: 05/30/18 0732 Specimen Description ASCITES FLUID GRAM STAIN STAIN PERFORMED ON CYTOSPIN GRAM STAIN WBC'S SEEN GRAM STAIN NO EPITHELIAL CELLS SEEN GRAM STAIN NO ORGANISMS SEEN CULTURE NO GROWTH 4 DAYS Gram stain [[id number]] Collected: 05/29/18 1256 Specimen: Sputum from Thoracic Fluid Updated: 05/29/18 2339 Specimen Description THORACIC FLUID CULTURE 1+ WBC'S SEEN NO ORGANISMS SEEN Lactate dehydrogenase, body fluid [[id number]] Collected: 05/29/18 1256 Specimen: Body Fluid from Pleural, Right Updated: 05/29/18 1619 FLUID LDH 151 U/L Cholesterol, body fluid [[id number]] Collected: 05/29/18 1256 Specimen: Body Fluid from [...] medications if needed. Follow-Up: Tien Nicholson MD [address] [place] [address] In 1 week Carolina Mahmood DO [address] [place] [facility] [address] In 1 week Daniela Ibarra MD [address] [facility] [address] In 1 week Discharge took more than 35 minutes, to include final examination, discussion of admission, and preparation of prescriptions, instructions for ongoing care, follow up and dictation of summary. Signed: DARELL ROSSI MD 06/01/2018 9:59 AM Dictation software, [employer], used which may contain error for similar [...] Date of Service: 06/01/18 150 Status: Signed Access Nurse: Tino Paiz CRT (Certified Respiratory Therapist) [facility] Department of Respiratory Usp Oxygen Evaluation (Evaluation is valid for 48 [...] (none) Author Type: Registered Nurse Filed: 06/01/18 4095 Date of Service: 06/01/18 1500 Status: Signed Access Nurse: Autumn Moy RN (Registered Nurse) Pt was [...] Date of Service: 06/01/18 1248 Status: Signed Access Nurse: Leanna Ariza RN (Registered Nurse) Pt will d/c home today --already established on HD/[place] MWF --will have O2 eval today No other needs Angela Antonio Carrasco MD - 06/01/2018 10:52 AM PDTFormatting of this note might be different from the orig inal. Progress Notes by Antonoi Benjamin MD at 06/01/18 1052 Author: Antonio Benjamin MD Service: Nephrology Author Type: Physician Filed: 06/05/18 1253 Date of Service: 06/01/18 1052 Status: Signed Access Nurse: Antonio Benjamin MD (Physician) [facility] Service: NEPHROLOGY Dialysis/ Progress Note Dara Lundberg Shiraz 23 y.o. [id number] female [facility]: LOS: 6 days Patient with PMH [...] AV FISTULA; Surgeon: Rik Simon MD; Location: [facility] MAIN OR; Service: Vascula r; Laterality: Left; cephalic AV FISTULA REPAIR Left 03/07/2014 Procedure: AV FISTULA - GRAFT REPAIR/REVISION; Surgeon: Rik Simon MD; Location: [facility] MA IN OR; Service: Vascular; Laterality: Left; DECLOT GRAFT Left 03/07/2014 Procedure: GRAFT - DECLOT; Surgeon: Rik Simon MD; Location: [facility] MAIN OR; Service: Vas cular; Laterality: Left; DIALYSIS FISTULA CREATION N/A 04/08/2014 Procedure: DIALYSIS CATHETER - INSERTION; Surgeon: Rik Simon MD; Location: [facility] MAIN OR ; Service: Vascular; Laterality: N/A; tunneled catheter LAPAROSCOPIC PERITONEAL DIALYSIS CATHETER INSERTION x2 LAPAROSCOPIC PERITONEAL DIALYSIS CATHETER INSERTION Right 07/2013 current dialysis access MWF dialysis RENAL BIOPSY SUPERFICIALIZATION OF AV FISTULA Left 06/24/2014 Procedure: AV FISTULA - SUPERFICIALIZATION; Surgeon: Rik Simon MD; Location: [facility] MAIN OR; Service: Vascular; Laterality: Left; History [...] radiologist report and is used for image [employer] only Us Abdomen Limited Result Date: 05/28/2018 [...] 17. The mitral valve is normal. 18. Ilod-do-txhfobhc eccentric mitral regurgitation i s present. 19. [...] mitral valve is normal. Mitral Kait ve: Jswk-sz-xrdylimu eccentric mitral regurgitation is present. Tricuspid Valve: [...] maxP.08 mmHg TR Vmax: 2.7 4 m/s Project Surveyor: MOO Authenticated by: Robel Yusuf MD Report [...] 17. The mitral valve is normal. 18. Eahx-qr-nfqcq ate eccentric mitral regurgitation is present. 19. [...] pleural spac e is punctured with an 8-Chilean thoracentesis catheter. Fluid is aspirated without complicat [...] earlier and charting completed later Dictation software, [employer], used which may contain error for similar [...] 0632 Date of Service: 06/01/1835 Status: Signed Access Nurse: Aury Eldridge RN (Registered Nurse) Pts VSS. [...] 05/31/181840 Date of Service: 05/31/181840 Status: Signed Access Nurse: Romelia Cooley RN (Registered Nurse) End of shift chart review complete. Romelia Cooley RN koum, René Mckeon MD - 05/31/2018 11:32 AM PDTFormatting of this note might be different from the candice ginal. Progress Notes by René Anguiano MD at 05/31/18 113 Author: René Anguiano MD Service: Nephrology Author Type: Physician Filed: 05/31/18 1654 Date of Service: 05/31/18 113 Status: Addendum Access Nurse: René Anguiano MD (Physician) Related Notes: Original [...] put on "an antibiotic" for pneumonia at [facility] ED. Was throwing up & could [...] the prelim submitted orders, MWF No acute FACILITY SUPERVISOR indication ESTEFANY as indicated with HD Protein [...] 05/31/2018 9:42 AM PDT Progress Notes by Darlel Rossi MD at 05/31/18941 Author: Darell Rossi MD Service: Hospitalist Author Type: Physician Filed: 05/31/18 0951 Date of Service: 05/31/18941 Status: Signed Access Nurse: Darell Rossi MD (Physician) [facility] Service: Hospitalist Progress Note Pt: Dara Louise AGE/SEX: 23 y.o. female ROOM: [address] [place] [address] : 1995 PCP: TIEN NICHOLSON ADMIT DATE: 05/26/2018 TODAY'S DATE: 05/31/2018 Hospital Day/Hospital Course: LOS: [address] Figueroa 23-year-old female with past medical history of end-stage renal disease on hemodialysis Mon, hypertension, anemia of chronic disease who went to [facility] with increasing shortness of breath found to have right pleural effusion who was transfer red to [facility] underwent right-sided diagnostic and therapeutic thoracocentesis [...] Component Value Units Date/Time Culture, Body Fluid [[id number]] Collected: 05/26/18 1412 Specimen: Body Fluid from Pleural Fluid Updated: 05/30/18 0733 Specimen Description PLEURAL FLUID GRAM STAIN WBC'S SEEN GRAM STAIN NO ORGANISMS SEEN GRAM STAIN STAIN PERFORMED ON CYTOSPIN CULTURE NO GROWTH 4 DAYS Culture, Body Fluid [[id number]] Collected: 05/26/18 1513 Specimen: Other from Ascites Fluid Updated: 05/30/18 0732 Specimen Description ASCITES FLUID GRAM STAIN STAIN PERFORMED ON CYTOSPIN GRAM STAIN WBC'S SEEN GRAM STAIN NO EPITHELIAL CELLS SEEN GRAM STAIN NO ORGANISMS SEEN CULTURE NO GROWTH 4 DAYS Gram stain [[id number]] Collected: 05/29/18 1256 Specimen: Sputum from Thoracic Fluid Updated: 05/29/18 2339 Specimen Description THORACIC FLUID CULTURE 1+ WBC'S SEEN NO ORGANISMS SEEN Lactate dehydrogenase, body fluid [[id number]] Collected: 05/29/18 1256 Specimen: Body Fluid from Pleural, Right Updated: 05/29/18 1619 FLUID LDH 151 U/L Cholesterol, body fluid [[id number]] Collected: 05/29/18 1256 Specimen: Body Fluid from Pleural, Right Updated: 05/29/18 1619 FLUID CHOLESTEROL 56 mg/dL Sputum culture [[id number]] Collected: 05/27/182014 Specimen: Sputum from Sputum Updated: [...] 17. The mitral valve is normal. 18. Opmd-wz-airra ate eccentric mitral regurgitation is present. 19. [...] anemia of chronic disease who went to [facility] with increasing shortness of breath due to acute congestive heart failure Acute systolic congestive heart failure with Pleural Effusion: Admitted with acute systolic congestive heart failure with bilateral pleural effusion stat us post thoracentesis 2. Her breathing has improved. She is talking to me appropriately. N ot in any kind of distress. telephone services sales representative to initiate the discharge plan. Possible dischar [...] MD, FACP 05/31/2018 9:42 AM Dictation software, [employer], used which may contain error for similar [...] 05/31/18253 Date of Service: 05/31/18253 Status: Signed Access Nurse: Nandini Robertson RN (Registered Nurse) Chart review completed. onver arturo Transaction, Provider Unknown - 05/30/2018 6:37 PM PDT Nurse Progress Note by Kyra Amador RN at 05/30/181836 Author: Kyra Amador RN Service: (none) Author Type: Registered Nurse Filed: 05/30/181842 Date of Service: 05/30/181836 Status: Signed Access Nurse: Kyra Amador RN (Registered Nurse) VSS. Pt [...] Date of Service: 05/30/18 0909 Status: Signed Access Nurse: Darell Rossi MD (Physician) [facility] Service: Hospitalist Progress Note Pt: Dara Toño Louise AGE/SEX: 23 y.o. female ROOM: [facility]- : 1995 PCP: TIEN NICHOLSON ADMIT DATE: 05/26/2018 TODAY'S DATE: 05/30/2018 Hospital Day/Hospital Course: LOS: [address] Figueroa 23-year-old female with past medical history of end-stage renal disease on hemodialysis Mon day Monday, hypertension, anemia of chronic disease who went to [facility] with increasing shortness of breath found to have right pleural effusion who was transfer red to [facility] underwent right-sided diagnostic and therapeutic thoracocentesis [...] Component Value Units Date/Time Culture, Body Fluid [[id number]] Collected: 05/26/18 1412 Specimen: Body Fluid from Pleural Fluid Updated: 05/30/18 5360 Specimen Description PLEURAL FLUID GRAM STAIN WBC'S SEEN GRAM STAIN NO ORGANISMS SEEN GRAM STAIN STAIN PERFORMED ON CYTOSPIN CULTURE NO GROWTH 4 DAYS Culture, Body Fluid [[id number]] Collected: 05/26/18 1513 Specimen: Other from Ascites Fluid Updated: 05/30/18 0732 Specimen Description ASCITES FLUID GRAM STAIN STAIN PERFORMED ON CYTOSPIN GRAM STAIN WBC'S SEEN GRAM STAIN NO EPITHELIAL CELLS SEEN GRAM STAIN NO ORGANISMS SEEN CULTURE NO GROWTH 4 DAYS Gram stain [[id number]] Collected: 05/29/18 1256 Specimen: Sputum from Thoracic Fluid Updated: 05/29/18 2339 Specimen Description THORACIC FLUID CULTURE 1+ WBC'S SEEN NO ORGANISMS SEEN Lactate dehydrogenase, body fluid [[id number]] Collected: 05/29/18 1256 Specimen: Body Fluid from Pleural, Right Updated: 05/29/18 1619 FLUID LDH 151 U/L Cholesterol, body fluid [[id number]] Collected: 05/29/18 1256 Specimen: Body Fluid from Pleural, Right Updated: 05/29/18 1619 FLUID CHOLESTEROL 56 mg/dL Sputum culture [[id number]] Collected: 05/27/182014 Specimen: Sputum from Sputum Updated: [...] 17. The mitral valve is normal. 18. Fuqz-dd-vujxm ate eccentric mitral regurgitation is present. 19. [...] anemia of chronic disease who went to [facility] with increasing shortness of breath due to [...] MD, FACP 05/30/2018 9:10 AM Dictation software, [employer], used which may contain error for similar [...] 05/30/18417 Date of Service: 05/30/18416 Status: Signed Access Nurse: Nandini Robertson RN (Registered Nurse) Pt did well overnight. VSS. Chart review completed. Carolina Cantor, Medical Student - 05/29/2018 7:56 PM PDT Progress Notes by Carolina Mahmood DO at 05/29/181955 Author: Carolina Mahmood DO Service: Cardiology Author Type: Physician Filed: 05/29/182014 Date of Service: 05/29/181955 Status: Signed Access Nurse: Carolina Mahmood DO (Physician) [facility] Service: Cardiology Progress Note Hospital [...] 05/29/181742 Date of Service: 05/29/181739 Status: Signed Access Nurse: Flaco Can RN (Registered Nurse) Pt VSS. [...] Notes by Anthony Figueroa MD at 05/29/18 1349 Author: Anthony Figueroa MD Service: Hospitalist Author Type: Physician Filed: 05/29/18 8146 Date of Service: 05/29/181342 Status: Signed Access Nurse: Anthony Figueroa MD (Physician) Hospitalist Progress Note Dara Louise 23 y.o. [id number] female [facility]: LOS: 3 days Patient Summary: 23-year-old female with past medical history of end-stage renal dis ease on hemodialysis Monday, hypertension, anemia of chronic disease who we nt to [facility] with increasing shortness of breath found to have right pleural e ffusion who was transferred to [facility] underwent right-sided diagnostic and therapeu tic [...] Value Units Date/Time Lactate dehydrogenase, body fluid [[id number]] Collected: 05/29/18 125 Specimen: Body Fluid from Pleural, Right Updated: 05/29/18 1315 Cholesterol, body fluid [[id number]] Collected: 05/29/18 125 Specimen: Body Fluid from Pleural, Right Updated: 05/29/18 1315 Gram stain [[id number]] Collected: 05/29/18 125 Specimen: Sputum from OTHR-w source desc (F6) Updated: 05/29/18 1309 Sputum culture [[id number]] Collected: 05/27/182014 Specimen: Sputum from Sputum Updated: 05/29/18 0947 Specimen Description SPUTUM GRAM STAIN LESS THAN 10 WBCS/LPF GRAM STAIN LESS THAN 10 SEC/LPF GRAM STAIN NO ORGANISMS SEEN CULTURE 1+ NORMAL UPPER RESPIRATORY ALESSANDRO HIV 1/2 Ab reflex [[id number]] Collected: 05/28/18 1236 Specimen: Blood Updated: 05/29/18 0942 HIV1/HIV2 NON REACTIVE Protime-INR [[id number]] Collected: 05/29/1852 Specimen: Blood Updated: 05/29/1840 INR 1.5 APTT [[id number]] Collected: 05/29/1852 Specimen: Blood Updated: 05/29/1840 APTT 29 seconds Culture, Body Fluid [[id number]] Collected: 05/26/18 1513 Specimen: Other from Ascites Fluid Updated: 05/29/18 0920 Specimen Description ASCITES FLUID GRAM STAIN STAIN PERFORMED ON CYTOSPIN GRAM STAIN WBC'S SEEN GRAM STAIN NO EPITHELIAL CELLS SEEN GRAM STAIN NO ORGANISMS SEEN CULTURE NO GROWTH 3 DAYS Culture, Body Fluid [[id number]] Collected: 05/26/18 1412 Specimen: Body Fluid from Pleural Fluid Updated: 05/29/18917 Specimen Description PLEURAL FLUID CULTURE NO GROWTH 3 DAYS Comprehensive metabolic panel [[id number]] (Abnormal) Collected: 05/29/18456 Specimen: Blood Updated: 05/29/18615 [...] mL/min/1.73m2 CBC W/Auto Diff (Reflex to Manual) [[id number]] (Abnormal) Collected: 05/29/18456 Specimen: Blood Updated: 05/29/18612 [...] 0.05 K/uL MORPHOLOGY 2+ hCG, serum, qualitative [[id number]] Collected: 05/28/18922 Specimen: Blood Updated: 05/28/181949 TEST,SERUM NEGATIVE C-reactive protein [[id number]] (Abnormal) Collected: 05/28/18922 Specimen: Blood Updated: 05/28/181940 CRP 5.1 (H) mg/dL Sedimentation rate, automated [[id number]] Collected: 05/28/18922 Specimen: Blood Updated: 05/28/18 1734 ESR 2 mm/Hr Hepatitis panel,acute [[id number]] Collected: 05/28/18 1236 Specimen: Blood Updated: 05/28/18 1650 HAV AB,IGM NON REACTIVE HEP B SURFACE AG NON REACTIVE ANTI HEP B CORE,IGM NON REACTIVE HEPATITIS C NON REACTIVE HEPATITIS INTERP No serologic evidence of HAV, HBV, or HCV infection. Troponin I [[id number]] Collected: 05/28/18922 Specimen: Blood Updated: 05/28/18 143 TROPONIN I 0.034 ng/mL Troponin I [[id number]] Collected: 05/28/18 1359 Specimen: Blood Updated: 05/28/18 143 TROPONIN I 0.037 ng/mL Renal function panel [[id number]] (Abnormal) Collected: 05/28/18 1209 Specimen: Blood from Blood Updated: 05/28/18 1302 SODIUM 141 mmol/L POTASSIUM 4.3 mmol/L CHLORIDE 101 mmol/L CO2 29 mmol/L ANION GAP AGAP 15 mmol/L GLUCOSE 78 mg/dL BUN 43 (H) mg/dL CREATININE 7.97 (H) mg/dL CALCIUM 9.1 mg/dL Albumin 3.6 g/dL PHOSPHORUS 6.3 (H) mg/dL EGFR 6 (L) mL/min/1.73m2 CBC W/Auto Diff (Reflex to Manual) [[id number]] (Abnormal) Collected: 05/28/18922 Specimen: Blood Updated: 05/28/18 [...] 0.05 K/uL MORPHOLOGY 1+ Comprehensive metabolic panel [[id number]] (Abnormal) Collected: 05/28/18922 Specimen: Blood Updated: 05/28/18 [...] (H) U/L EGFR 6 (L) mL/min/1.73m2 TSH [[id number]] Collected: 05/28/18922 Specimen: Blood Updated: 05/28/18 1210 TSH 1.270 uIU/mL Pathologist consult [[id number]] Collected: 05/26/18 1412 Updated: 05/28/18 1113 Pathologist Consult -- Hepatitis panel, chronic [[id number]] (Abnormal) Collected: 05/27/18 1758 Updated: 05/27/18 203 Hep A Total Ab REACTIVE (A) HEP B SURFACE AG NON REACTIVE HEP B CORE AB,TOTAL NON REACTIVE HEP B SURFACE ANTIBODY 3.27 (H) IV HEPATITIS C NON REACTIVE HEPATITIS INTERP Current or past HAV infection. Past HBV infection or vaccination. No ser ologic evidence of HCV infection. CBC w/auto diff (reflex to manual) [[id number]] (Abnormal) Collected: 05/27/18 0425 Specimen: Blood Updated: [...] K/uL MORPHOLOGY 2+ Platelet Estimate DECREASED Phosphorus [[id number]] (Abnormal) Collected: 05/27/18424 Specimen: Blood Updated: 05/27/18628 PHOSPHORUS 8.0 (H) mg/dL Basic Metabolic Panel [[id number]] (Abnormal) Collected: 05/27/18424 Specimen: Blood Updated: 05/27/18628 SODIUM 135 mmol/L POTASSIUM 5.9 (H) mmol/L CHLORIDE 96 (L) mmol/L CO2 25 mmol/L ANION GAP AGAP 20 mmol/L GLUCOSE 74 mg/dL BUN 51 (H) mg/dL CREATININE 9.2 (H) mg/dL BUN/CREAT 6 CALCIUM 9.4 mg/dL EGFR 5 (L) mL/min/1.73m2 Magnesium [[id number]] (Abnormal) Collected: 05/27/18424 Specimen: Blood Updated: 05/27/18628 MAGNESIUM 2.7 (H) mg/dL Brain natriuretic peptide [[id number]] (Abnormal) Collected: 05/27/18424 Specimen: Blood Updated: 05/27/1846 BRAIN NATRIURETIC PEPTIDE 1,153.92 (H) pg/mL Respiratory Filmarray [[id number]] (Abnormal) Collected: 05/26/181805 Specimen: Nasopharynx/Oropharynx Updated: 05/26/182141 [...] performed by Molecular Methodology MRSA by PCR [[id number]] Collected: 05/26/181805 Specimen: Nasopharyngeal from Nares(Nose) Updated: 05/26/182025 SOURCE NARES(NOSE) MRSA PCR NEGATIVE Procalcitonin [[id number]] (Abnormal) Collected: 05/26/181726 Updated: 03/23/19 1839 PROCALCITONIN 0.76 (H) ng/mL Albumin, Body Fluid [[id number]] Collected: 05/26/181411 Specimen: Body Fluid from Lung, Right Lower Lobe Updated: 05/26/18 172 FLUID ALBUMIN 2.3 g/dL Total Protein, Body Fluid [[id number]] Collected: 05/26/181411 Specimen: Body Fluid from Lung, Right Lower Lobe Updated: 05/26/18 172 FLUID TOTAL PROTEIN 4.2 g/dL FLUID TP SOURCE PLEURAL FLUID Cell count, Body Fluid [[id number]] Collected: 05/26/181411 Specimen: Body Fluid from Lung, Right Lower Lobe Updated: 05/26/18 170 FLUID TYPE PLEURAL FLUID COLOR SAMMIE APPEARANCE CLOUDY RBC'S 3,000 /mm3 TOTAL NUCLEATED CELLS 253 /mm3 NEUTROPHILS 22 % LYMPHOCYTES 8 % MONOCYTES/MACROPHAGES 65 % Mesothelial Cells 5 % CELLS COUNTED 100 pH, Body Fluid [[id number]] Collected: 05/26/181411 Specimen: Body Fluid from Lung, [...] 17. The mitral valve is normal. 18. Qzxf-mf-twtbtscz eccentric mitral regurgitation i s present. 19. [...] mitral valve is normal. Mitral Kait ve: Gvwh-lu-hfxdhctp eccentric mitral regurgitation is present. Tricuspid Valve: [...] maxP.08 mmHg TR Vmax: 2.7 4 m/s Project Surveyor: MOO Authenticated by: Robel Yusuf MD Report [...] 17. The mitral valve is normal. 18. Vsbc-oq-fpkun ate eccentric mitral regurgitation is present. 19. [...] imbalance Acute systolic CHF (congestive heart failure) ([facility]) Transaminitis ASSESSMENT & PLAN Bilateral pleural effusion [...] Service: Nephrology Author Type: Physician Filed: 05/31/18 3009 Date of Service: 05/29/18725 Status: Addendum Access Nurse: René Anguiano MD (Physician) Related Notes: Original Note by KRISHNA Waters (Nurse Practitioner) filed at 05/05 08/22 7956 Hospital Problem List: Active Problems: ESRD on [...] put on "an antibiotic" for pneumonia at [facility] ED. Was throwing up & could [...] the prelim submitted orders, MWF No acute FACILITY SUPERVISOR indication ESTEFANY as indicated with HD Protein [...] 0555 Date of Service: 05/29/18553 Status: Signed Access Nurse: Vernell Weston RN (Registered Nurse) End of [...] 05/28/181940 Date of Service: 05/28/181939 Status: Signed Access Nurse: Saundra Hartley RN (Registered Nurse) No acute [...] 05/28/181721 Date of Service: 05/28/181720 Status: Signed Access Nurse: Cayden Caceres RN (Registered Nurse) UF 2 L with HD today. nthony Figueroa MD - 05/28/2018 12:26 PM PDTFormatting of this note might be different from the or iginal. Progress Notes by Anthony Figueroa MD at 05/28/18 1226 Author: Anthony Figueroa MD Service: Hospitalist Author Type: Physician Filed: 05/28/18 1233 Date of Service: 05/28/18 1226 Status: Signed Access Nurse: Anthony Figueroa MD (Physician) Hospitalist Progress Note Dara Louise 23 y.o. [id number] female [facility]: LOS: 2 days Patient Summary: 23-year-old female with past medical history of end-stage renal dis ease on hemodialysis Monday, hypertension, anemia of chronic disease who we nt to [facility] with increasing shortness of breath found to have right pleural e ffusion who was transferred to [facility] underwent right-sided diagnostic and therapeu tic [...] Component Value Units Date/Time Culture, Body Fluid [[id number]] Collected: 05/26/18 7182 Specimen: Other from Ascites Fluid Updated: 05/28/18 1225 Specimen Description ASCITES FLUID GRAM STAIN STAIN PERFORMED ON CYTOSPIN GRAM STAIN WBC'S SEEN GRAM STAIN NO EPITHELIAL CELLS SEEN GRAM STAIN NO ORGANISMS SEEN CULTURE NO GROWTH 2 DAYS Culture, Body Fluid [[id number]] Collected: 05/26/18 141 Specimen: Body Fluid from Pleural Fluid Updated: 05/28/18 1223 Specimen Description PLEURAL FLUID CULTURE NO GROWTH 2 DAYS Comprehensive metabolic panel [[id number]] (Abnormal) Collected: 05/28/18922 Specimen: Blood Updated: 05/28/18 [...] (H) U/L EGFR 6 (L) mL/min/1.73m2 TSH [[id number]] Collected: 05/28/18922 Specimen: Blood Updated: 05/28/18 1210 TSH 1.270 uIU/mL Pathologist consult [[id number]] Collected: 05/26/18 141 Updated: 05/28/18 1113 Pathologist Consult -- Troponin I [[id number]] Collected: 05/28/18922 Specimen: Blood Updated: 05/28/18 1055 CBC W/Auto Diff (Reflex to Manual) [[id number]] Collected: 05/28/18922 Specimen: Blood Updated: 05/28/18 0939 Sputum culture [[id number]] Collected: 05/27/182014 Specimen: Sputum from Sputum Updated: 05/28/18902 Specimen Description SPUTUM GRAM STAIN LESS THAN 10 WBCS/LPF GRAM STAIN LESS THAN 10 SEC/LPF GRAM STAIN NO ORGANISMS SEEN CULTURE CULTURE IN PROGRESS Hepatitis panel, chronic [[id number]] (Abnormal) Collected: 05/27/181757 Updated: 05/27/182030 Hep A Total Ab REACTIVE (A) HEP B SURFACE AG NON REACTIVE HEP B CORE AB,TOTAL NON REACTIVE HEP B SURFACE ANTIBODY 3.27 (H) IV HEPATITIS C NON REACTIVE HEPATITIS INTERP Current or past HAV infection. Past HBV infection or vaccination. No ser ologic evidence of HCV infection. CBC w/auto diff (reflex to manual) [[id number]] (Abnormal) Collected: 05/27/18424 Specimen: Blood Updated: 05/27/18 [...] K/uL MORPHOLOGY 2+ Platelet Estimate DECREASED Phosphorus [[id number]] (Abnormal) Collected: 05/27/18424 Specimen: Blood Updated: 05/27/18 0629 PHOSPHORUS 8.0 (H) mg/dL Basic Metabolic Panel [[id number]] (Abnormal) Collected: 05/27/18424 Specimen: Blood Updated: 05/27/1829 SODIUM 135 mmol/L POTASSIUM 5.9 (H) mmol/L CHLORIDE 96 (L) mmol/L CO2 25 mmol/L ANION GAP AGAP 20 mmol/L GLUCOSE 74 mg/dL BUN 51 (H) mg/dL CREATININE 9.2 (H) mg/dL BUN/CREAT 6 CALCIUM 9.4 mg/dL EGFR 5 (L) mL/min/1.73m2 Magnesium [[id number]] (Abnormal) Collected: 05/27/18424 Specimen: Blood Updated: 05/27/18 0629 MAGNESIUM 2.7 (H) mg/dL Brain natriuretic peptide [[id number]] (Abnormal) Collected: 05/27/18424 Specimen: Blood Updated: 05/27/18 0546 BRAIN NATRIURETIC PEPTIDE 1,153.92 (H) pg/mL Respiratory Filmarray [[id number]] (Abnormal) Collected: 05/26/181805 Specimen: Nasopharynx/Oropharynx Updated: 05/26/182141 [...] performed by Molecular Methodology MRSA by PCR [[id number]] Collected: 05/26/18 180 Specimen: Nasopharyngeal from Nares(Nose) Updated: 05/26/182025 SOURCE NARES(NOSE) MRSA PCR NEGATIVE Procalcitonin [[id number]] (Abnormal) Collected: 05/26/18 1727 Updated: 05/26/18 1839 PROCALCITONIN 0.76 (H) ng/mL Albumin, Body Fluid [[id number]] Collected: 05/26/18 1412 Specimen: Body Fluid from Lung, Right Lower Lobe Updated: 05/26/18 1729 FLUID ALBUMIN 2.3 g/dL Total Protein, Body Fluid [[id number]] Collected: 05/26/18 1412 Specimen: Body Fluid from Lung, Right Lower Lobe Updated: 05/26/18 1729 FLUID TOTAL PROTEIN 4.2 g/dL FLUID TP SOURCE PLEURAL FLUID Cell count, Body Fluid [[id number]] Collected: 05/26/18 141 Specimen: Body Fluid from Lung, Right Lower Lobe Updated: 05/26/18 1708 FLUID TYPE PLEURAL FLUID COLOR SAMMIE APPEARANCE CLOUDY RBC'S 3,000 /mm3 TOTAL NUCLEATED CELLS 253 /mm3 NEUTROPHILS 22 % LYMPHOCYTES 8 % MONOCYTES/MACROPHAGES 65 % Mesothelial Cells 5 % CELLS COUNTED 100 pH, Body Fluid [[id number]] Collected: 05/26/18 1412 Specimen: Body Fluid from Lung, Right Lower Lobe Updated: 05/26/18 1508 FLUID PH 7.45 Procalcitonin [[id number]] (Abnormal) Collected: 05/26/18 1214 Updated: 05/26/18 1330 PROCALCITONIN 0.56 (H) ng/mL Cardiac Panel [[id number]] (Abnormal) Collected: 05/26/18 1214 Updated: 05/26/18 1312 [...] ng/mL CK-MB Index 2.7 Brain natriuretic peptide [[id number]] (Abnormal) Collected: 05/26/18 1214 Updated: 05/26/18 1254 [...] radiologist report and is used for image [employer] Echo Cardiac Adult Complete Result Date: 05/27/2018 [...] 17. The mitral valve is normal. 18. Gkwa-px-mdpieepl eccentric mitral regurgitation i s present. 19. [...] mitral valve is normal. Mitral Kait ve: Bsyy-nx-fatvgjqt eccentric mitral regurgitation is present. Tricuspid Valve: [...] maxP.08 mmHg TR Vmax: 2.7 4 m/s Project Surveyor: MOO Authenticated by: Robel Yusuf MD Report [...] 17. The mitral valve is normal. 18. Ljsa-jr-gubmz ate eccentric mitral regurgitation is present. 19. [...] 05/28/1808 Date of Service: 05/28/18703 Status: Signed Access Nurse: Timothy Butler RN (Registered Nurse) Pt A&Ox4 [...] 05/27/181957 Date of Service: 05/27/181954 Status: Signed Access Nurse: Vernell Weston RN (Registered Nurse) Called into [...] Saundra Hartley RN at 05/27/181922 Author: Saundra Hatrley RN Service: (none) Author Type: Registered Nurse Filed: 05/27/181924 Date of Service: 05/27/181922 Status: Signed Access Nurse: Saundra Hartley RN (Registered Nurse) Pt has [...] Author: DORON Ashby Service: (none) Author Type: Voice Intercept Technician Filed: 05/27/181533 Date of Service: 05/27/181529 Status: Signed Access Nurse: DORON Ashby (Voice Intercept Technician) 05/27/181529 Discharge Planning Evaluation Admitting Diagnosis SOB [...] Patient/Family concerns No Met with Dara Louise ([phone]) and discussed discharge planning. Pt is a 23 y.o., female who resides alone in [place], [place]. Pt states that she has supportive family and frie nds. Pt's mother lives 50 miles away; pt's sister lives 15 minutes away. Pt is independent and does not have a caregiver. Patient's PCP is: TIEN NICHOLSON Patient's insurance: Medicare and Medicaid Coverage concerns: None Medication coverage/concerns: None Community resources utilized / needed: Pt does outpatient dialysis at [place] in [facility] on Monday, Monday and Monday Assistance [...] Service: Hospitalist Author Type: Physician Filed: 05/27/18 4319 Date of Service: 05/27/18 1325 Status: Signed Access Nurse: Anthony Figueroa MD (Physician) Hospitalist Progress Note Dara Lundberg Shiraz 23 y.o. [phone] [id number] female [facility] Day: LOS: 1 day Patient Summary: 23-year-old female with past medical history of end-stage renal dis ease on hemodialysis Monday, hypertension, anemia of chronic disease who we nt to [facility] with increasing shortness of breath found to have right pleural e ffusion who was transferred to [facility] underwent right-sided diagnostic and therapeu tic [...] Date/Time CBC w/auto diff (reflex to manual) [[id number]] (Abnormal) Collected: 05/27/18424 Specimen: Blood Updated: 05/27/18710 [...] K/uL MORPHOLOGY 2+ Platelet Estimate DECREASED Phosphorus [[id number]] (Abnormal) Collected: 05/27/18424 Specimen: Blood Updated: 05/27/18628 PHOSPHORUS 8.0 (H) mg/dL Basic Metabolic Panel [[id number]] (Abnormal) Collected: 05/27/18424 Specimen: Blood Updated: 05/27/18628 SODIUM 135 mmol/L POTASSIUM 5.9 (H) mmol/L CHLORIDE 96 (L) mmol/L CO2 25 mmol/L ANION GAP AGAP 20 mmol/L GLUCOSE 74 mg/dL BUN 51 (H) mg/dL CREATININE 9.2 (H) mg/dL BUN/CREAT 6 CALCIUM 9.4 mg/dL EGFR 5 (L) mL/min/1.73m2 Magnesium [[id number]] (Abnormal) Collected: 05/27/18424 Specimen: Blood Updated: 05/27/18 0629 MAGNESIUM 2.7 (H) mg/dL Brain natriuretic peptide [[id number]] (Abnormal) Collected: 05/27/18424 Specimen: Blood Updated: 05/27/18 0546 BRAIN NATRIURETIC PEPTIDE 1,153.92 (H) pg/mL Respiratory Filmarray [[id number]] (Abnormal) Collected: 05/26/181805 Specimen: Nasopharynx/Oropharynx Updated: 05/26/182141 [...] performed by Molecular Methodology MRSA by PCR [[id number]] Collected: 05/26/181805 Specimen: Nasopharyngeal from Nares(Nose) Updated: 05/26/182025 SOURCE NARES(NOSE) MRSA PCR NEGATIVE Procalcitonin [[id number]] (Abnormal) Collected: 05/26/18 1727 Updated: 05/26/18 183 PROCALCITONIN 0.76 (H) ng/mL Culture, Body Fluid [[id number]] Collected: 05/26/18 141 Specimen: Body Fluid from Pleural Fluid Updated: 05/26/18 181 Pathologist consult [[id number]] Collected: 05/26/181411 Updated: 05/26/18 174 Albumin, Body Fluid [[id number]] Collected: 05/26/181411 Specimen: Body Fluid from Lung, Right Lower Lobe Updated: 05/26/18 172 FLUID ALBUMIN 2.3 g/dL Total Protein, Body Fluid [[id number]] Collected: 05/26/18 1412 Specimen: Body Fluid from Lung, Right Lower Lobe Updated: 05/26/18 1729 FLUID TOTAL PROTEIN 4.2 g/dL FLUID TP SOURCE PLEURAL FLUID Cell count, Body Fluid [[id number]] Collected: 05/26/18 1412 Specimen: Body Fluid from Lung, Right Lower Lobe Updated: 05/26/18 1708 FLUID TYPE PLEURAL FLUID COLOR SAMMIE APPEARANCE CLOUDY RBC'S 3,000 /mm3 TOTAL NUCLEATED CELLS 253 /mm3 NEUTROPHILS 22 % LYMPHOCYTES 8 % MONOCYTES/MACROPHAGES 65 % Mesothelial Cells 5 % CELLS COUNTED 100 Culture, Body Fluid [[id number]] Collected: 05/26/18 1513 Specimen: Other from Ascites Fluid Updated: 05/26/18 1631 Specimen Description ASCITES FLUID GRAM STAIN STAIN PERFORMED ON CYTOSPIN GRAM STAIN WBC'S SEEN GRAM STAIN NO EPITHELIAL CELLS SEEN GRAM STAIN NO ORGANISMS SEEN CULTURE PENDING pH, Body Fluid [[id number]] Collected: 05/26/18 141 Specimen: Body Fluid from Lung, Right Lower Lobe Updated: 05/26/18 1508 FLUID PH 7.45 Procalcitonin [[id number]] (Abnormal) Collected: 05/26/18 1214 Updated: 05/26/18 1330 PROCALCITONIN 0.56 (H) ng/mL Cardiac Panel [[id number]] (Abnormal) Collected: 05/26/18 1214 Updated: 05/26/18 1312 [...] ng/mL CK-MB Index 2.7 Brain natriuretic peptide [[id number]] (Abnormal) Collected: 05/26/18 1214 Updated: 05/26/18 1254 [...] radiologist report and is used for image [employer] only PROBLEM LIST Active Problems: ESRD on [...] 05/27/18546 Date of Service: 05/27/18543 Status: Signed Access Nurse: Vernell Weston RN (Registered Nurse) End of [...] 05/26/181950 Date of Service: 05/26/181947 Status: Signed Access Nurse: Saundra Hartley, RN (Registered Nurse) Pt complained [...] 05/26/181804 Date of Service: 05/26/181804 Status: Signed Access Nurse: Jae Gutierres RPH (Pharmacist) Renal Dosing Monitoring: [...] E | | | | | | [place] [address] | | | | | | [phone] | | | | | | | [...] | | | | | | at [facility], [address] | | | | | | [facility], | | | | | | [place] [address] | | | | | |Testing performed at [facility], [address] [facility], [place] [address] | | | | | | | [...] [place], | | | | | | [place], [place] [address] | | | | + + + [...] | | | | | | at [facility], [address] | | | | | | [facility], | | | | | | [place] [address] | | | | | |Testing performed at [facility], [address] [facility], [place] [address] | | | | | | | [...] | | | | | performed at [facility], [address] | | | | | | [facility] [place], | | | | | | [place] [address] | | | | + + + [...] | | | | | | at [facility], [address] | | | | | | [facility], | | | | | | [place] [address] | | | | | |Testing performed at [facility], [address] [facility], [place] [address] | | | | | | | [...] | | | | | performed at [facility], [address] | | | | | | [address] [facility], | | | | | | [place] [address] | | | | + + + [...] | EXTERNAL LAB | | not a head bander and liner operator validated sample type for this method. No reference | | | ranges have been established. Testing performed at [facility], [address] | | | [place] [address] | | + + + + +---------+ [...] EXTERNAL LAB | | is not a head bander and liner operator validated sample type for this method. No | | | reference ranges have been established. Testing performed at [facility], | | | [address] [facility] [place] [address] | | + + + + +---------+ [...] | | space is punctured with an 8-Chilean thoracentesis catheter. Fluid is | | | [...] the pleural space is punctured with an 8-Chilean | | thoracentesis catheter. Fluid is aspirated [...] | | | Patient | performed at [facility];[address] | | LAB | | | | [address];[place], [place] | | | | | | [address] | | | | + + + [...] | performed at [facility] | | | | | | [address];[place], [place] | | | | | | [address] | | | | + + + [...] | | | | | | at [facility], [address] | | | | | | [employer], | | | | | | [place] [address] | | | | | |Testing performed at [facility], [address] [place] [address] | | | | | | | [...] | | | | | performed at [facility], [address] | | | | | | [place], | | | | | | [place] [address] | | | | + + + [...] at | | | | | | [facility];[address] [place] [address] | | | | | | [facility];[place] [address] | | | | + + + [...] at | | | | | | [facility], [address] [facility] | | | | | | [place] | | | | | | [address] | | | | + + + [...] | | | | | performed at [facility], [address] | | | | | | [address] [facility], | | | | | | [place] [address] | | | | + + + [...] | performed at [facility];[address] | | | [address];[place], [place] | | | | | | [address] | | | | + + + [...] + + | Historically converted procedure from [facility] environment | EXTERNAL LAB | + + [...] at | | | | | | [facility];[address] [facility] | | | | | | Bl;[place] [address] | | | | + + + [...] | | | | | | [place] [address] | | | | + + + [...] | | | | | | at [facility], [address] | | | | | | [facility], | | | | | | [place] [address] | | | | | |Testing performed at [facility], [address] [place] [address] | | | | | | | [...] | | | | | [place] [address] | | | | + + + [...] | | | QUALITATIVE | performed at [facility], [address] | | LAB | | | | [address], | | | | | | [place] [address] | | | | + + + [...] EXTERNAL | | | | performed at [facility], [address] | uIU/mL | LAB | | | | [place] [place], | | | | | | [place] [address] | | | | + + + [...] | | | | | performed at [facility], [address] | | | | | | [facility], | | | | | | [place] [address] | | | | + + + [...] | | | preparation was performed by [facility] [facility], [address] [place] [address] | | | [place] [address] (Girl Friday: Matt Claudio D.O.; | | | CLIA#: [id number]). Professional interpretation was performed by | | | [facility] [facility], [facility], [address] [place] [address], | | | [place] [address] (Girl Friday: Daniel Larson M.D.; | | | CLIA#: [id number]).6 Diagnostician: Marie BROOKS ([facility]) | | | Bonding Agent Diagnostician: Anahy Da Silva MD Pathologist | [...] at | | | | | | [facility], [address] | | | | | | [place] | | | | | | [address] | | | | + + + [...] valve is normal. 18. | | | Tnor-ub-ywqtnndh eccentric mitral regurgitation is present. 19. | [...] valve is normal. 18. | | | Xtuq-os-xoqimwsg eccentric mitral regurgitation is present. 19. | [...] is | | | normal. Mitral Valve: Vndf-bk-vcfcralu eccentric mitral regurgitation | | | is [...] TR Vmax: 2.74 m/s | | | Project Surveyor: MOO Authenticated by: Robel Yusuf MD Report [...] aortic stenosis.17. The mitral valve is normal.18. Cjsi-wf-asavohxa | | eccentric mitral regurgitation is present.19. [...] | | arch are normal.26. No mass ecejftpuao24. No clot visualized FINDINGS--------ECG | | rhythm: [...] mitral valve is normal.Mitral Valve: | | Inhx-hc-artjymjz eccentric mitral regurgitation is present.Tricuspid Valve: Severe [...] mlLAESV Index (A-L): 30.43 ml/m2LAAs A2C: 20.97 [id number] | | A-L A2C: 65.71 mlLALs A2C: 5.68 cmLAAs A4C: 19.94 [id number] A-L A4C: 60.20 mlLALs | | A4C: 5.60 cmTAPSE: 1.58 cmHR: 79.62 BPMAV maxP.06 mmHgAV meanP.71 | | mmHgAV Vmax: 1.23 m/Elizabeth Vmean: 0.92 m/Elizabeth VTI: 20.07 cmAVA Vmax: 1.74 cm2AVA | | (VTI): 1.93 [id number] Vmax: 0.00 cm2/m2AVAI (VTI): 0.00 cm2/m2LVOT maxP.22 [...] maxP.08 | | mmHgTR Vmax: 2.74 m/s Project Surveyor: Brodyted by: Robel Palacios | | Date/Time: [...] The mitral valve is | | normal.18. Axnp-ku-gtjlnpjd eccentric mitral regurgitation is present.19. Severe | [...] and aortic arch are normal.26. No mass . No clot visualized | |LVPWd: 1.27 cm [...] |TR Vmax: 2.74 m/s | | | |Project Surveyor: MOO | |Authenticated by: Robel Yusuf MD [...] The mitral valve is normal. | |18. Dsou-ck-njjfpfpw eccentric mitral regurgitation is present. | |19. [...] | | LAB | | | | [facility];[address] | | | | | | [place] [address] | | | | + + + [...] EXTERNAL | | | | performed at [facility], [address] | | LAB | | | | [place], | | | | | | [place] [address] | | | | + + + [...] | | LAB | | | | [facility] [address] | | | [address];[place] [address] | | | | + + + [...] EXTERNAL | | | | performed at [facility], [address] | | LAB | | | | [place], | | | | | | [place] [address] | | | | + + + [...] | | | | | performed at [facility], [address] | | | | | | [facility], | | | | | | [place] [address] | | | | + + + [...] Methodology | | | Testing performed at [facility], [address] [place], [place] | | | [address] | | + + + + +---------+ [...] NEGATIVE Testing | | | performed at [facility];[address] [place] [address];[place] [address] | | + + + + +---------+ [...] | | | | | | at [facility];[address] [place] [address] | | | | | | [facility];[place] [address] | | | | + + + [...] AT 1702: | | | PREVIOUSLY REPORTED <[id number] TOTAL NUCLEATED CELLS | | | 253 CORRECTED RESULTS CALLED TO DR. GLASS IN ED AT | | | 1705 BY LGJ CORRECTED ON 05/26 AT 1702: PREVIOUSLY REPORTED 374 | | | NEUTROPHILS 22 | | | LYMPHOCYTES 8 | | | MONOCYTES/MACROPHAGES 65 Mesothelial | | | Cells 5 CELLS COUNTED | | | 100 Testing performed at [facility];[address] | | | [address] [facility];[place] [address] | | + + + + +---------+ [...] | EXTERNAL LAB | | not a head bander and liner operator validated sample type for this method. No reference | | | ranges have been established. Testing performed at [facility], [address] | | | [place] [address] FLUID TP SOURCE | | | PLEURAL FLUID Testing performed at [facility];[address] | | | [place] [address] | | + + + + +---------+ [...] | EXTERNAL LAB | | not a head bander and liner operator validated sample type for this method. No | | | reference ranges have been established. Testing performed at [facility], | | | [address] [place] [address] | | + + + + +---------+ [...] EXTERNAL LAB | | Testing performed at [facility];[address] [place] [address];[place] [address] | | + + + + +---------+ [...] | | | | | | at [facility];[address] [place] [address] | | | | | | [facility];[place] [address] | | | | + + + [...] | | | | | | at [facility];[address] [place] [address] | | | | | | Bl;[place] [address] | | | | + + + [...] | | LAB | | | | [facility];[address] | | | | | | [place] [address] | | | | + + + [...]
--- OUTSIDE RECORDS SUMMARY | ~2019-03-12 | XMS | Encounter Summary ---
Demographics + + + | Address | [address] | | | [place] [address] | + + + | Home Phone [...] | Author | [facility] | | | and Josephana | + + + | Organization | [facility] | | | and [...] Team Providers + +------+ + | Care Balance Recesser Name | Role | Phone | + [...] | | stage renal | [address] | [address] [place] [address] | | | | | disease) | Shun Griffin | [place] | | | | | ([facility]) | [address] | [address] [place] | | | | | Anemia in | [place], [place] | [place] | | | | | ESRD | [address] | [address] Phone: | | | | | (end-stage | Phone: | [phone] | | | | | renal | [phone] | Fax: | | | | | disease) | Fax: | [phone] | | | | | ([facility]) | [phone] | | | | | | Procedures [...] | | [address] | [place] | (Primary Dx) | | | | [place], [place] | [place], [place] | | | | | [address] | [address] | | | | | [phone] | | | +--------+ + + + [...] PST Subjective: DIALYSIS NOTE Patient ID: Dara eWldon is a 21 y.o. female. 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 She also has anemia secondary to CKD, SHPTH, centripetal obesity. She is see n on HD at [facility], with QB = 450. Unfortunately, she is consistently plagued by unexplained absenteeism from treatments. Despite having reliable transportation arranged b y the Adjunct Professor Of Voice. She apparently still lacks meaningful plans for [...] last 3 mo. I think that her [place] Dry wt = 97.5 kg? 3. SHPTH--not [...] our office, myself or Dr. Ibarra. : Dennis Fina Joy M.D., Pediatric Nephrology, [facility] documented in t his encounter Plan [...] [address] | | | | | | [place] [address] | | | | | | [phone] | | | | | | | | +--------+---------+ + + + documented as of this encounter Visit Diagnoses + + | Diagnosis | + + | ESRD (end stage renal disease) (HCC) - Primary End stage renal disease | + + documented in this encounter"
--- OUTSIDE RECORDS SUMMARY | ~2019-03-12 | XMS | Encounter Summary ---
Demographics + + + | Address | [address] | | | [place] [address] | + + + | Home Phone [...] Author | [facility] | | | and Josephana | + + + | Organization | [facility] | | | and [...] Team Providers + +------+ + | Care Executive Vice President Of Sales Name | Role | Phone | + [...] | | [address] | [place] | | | | | [place], [place] | [place], [place] | | | | | [address] | [address] | | | | | [phone] | | | +--------+--------+ + + + [...] | | | | | [place] [address] | | | | | | [phone] | | | | | | | | +--------+---------+ + + + documented as of this encounter Visit Diagnoses Not on filedocumented in this encounter"
--- OUTSIDE RECORDS SUMMARY | ~2019-03-12 | XMS | Encounter Summary ---
Demographics + + + | Address | [address] | | | [place] [address] | + + + | Home Phone [...] [facility] | | | and [place] | + + + | Organization | [facility] | [...] Providers + +------+ + | Care Supervisor Mail Carriers Name | Role | Phone | + +------+ + | Jonathan Alonso MD | PCP | | + +------+ + Reason for Visit + + + | Reason | Comments | + + + | Shortness of Breath | "I have fluid in my lung and it needs to be tapped", pt has not | | | been to dialysis for her last two appointments | + + + Encounter Details +--------+ + + + + | Date | Type | Department | Care Team | Description | +--------+ + + + + | 01/23/ | Hospital [facility] | Vivek Teran, | SOB (shortness of | | 2019 - | Encounter | [facility] | MD Brooks Caputovd | breath) (Primary | | | | CARE FLOOR [address] | [place] [address] | Dx); ESRD needing | | 01/26/ | | [address] | [phone] | dialysis ([facility]); | | 2019 | | [place], [place] | | Chronic pleural | | | | [phone] | Omar Hatch MD [address] | effusion; | | | | [phone] | [address] | Noncompliance with | | | | | [place] [address] | renal dialysis | | | | | [phone] | ([facility]); Acute | | | | | | respiratory | | | | | Stoero Reinoso MD | distress; Anemia in | | | | | [address] | ESRD (end-stage | | | | | [place], [place] | renal disease) | | | | | [phone] | ([facility]); At high risk | | | | | | for electrolyte | | | | | Usha Martínez MD | imbalance; ESRD on | | | | | [address] | hemodialysis ([facility]); | | | | | [place] [address] | Hyperphosphatemia; | | | | | [phone] | Noncompliance; | | | | | | Recurrent right | | | | | | pleural effusion; | | | | | | Hypoalbuminemia; | | | | | | Non-compliance | +--------+ + + + + Social [...] do you have serious | No | 01/10/2019 | | difficulty hearing? | | | + + + + | Are you blind or do you have serious | No | 01/10/2019 | | difficulty seeing, even when wearing | | | | glasses? | | | + + + + | Do you have serious difficulty walking or | No | 01/10/2019 | | climbing stairs? (5 years old or older) | | | + + + + | Do you have difficulty dressing or bathing? | No | 01/10/2019 | | (5 years old or older) | | | + + + + | Because of a physical, mental, or emotional | No | 01/10/2019 | | condition, do you have difficulty [...] physical, mental, or emotional | No | 01/10/2019 | | condition, do you have serious difficulty | | | | concentrating, remembering, or making | | | | decisions? (5 years old or older) | | | + + + + documented as of this encounter Discharge Summaries Usha Martínez MD - 01/25/2019 8:41 AM PSTFormatting of this note might be different from pierre coleman. 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 * . Procedures: * No surgery found * Significant Diagnostic Studies: Recent Results (from the past 360 hour(s)) XR Chest 2 Vws Narrative CHEST TWO VIEWS CLINICAL INFORMATION: Shortness of breath. COMPARISON: XR CHEST PA AND LATERAL (01/09/2019); CT CHEST WO CONTRAST (01/07/2019); XR CHEST AP PORTABLE (01/07/2019); CHEST TWO VIEWS [id number] (01/06/2019); XR CHEST AP PORTABLE (12/13/2018); FINDINGS: Cardiomegaly. Pulmonary venous congestion. Diffuse interstitial prominence in both lungs. Right parahilar opacity. Dense right basilar opacity with obscuration of right dome of diaphragm and right costophrenic sulcus. No left pleural effusion. No pneumothorax. No acute osseous abnormality. Impression *Cardiomegaly with pulmonary edema. *Probable large right pleural effusion with atelectasis and/or consolidation of the underlying lung. Signed by: Eliza Marinelli, Pushpender Sign Date/Time: 01/23/2019 11:26 PM XR Chest AP Portable Narrative CHEST PORTABLE ONE VIEW CLINICAL INFORMATION: Post thoracentesis. COMPARISON: XR CHEST 2 VIEWS (01/23/2019); XR CHEST PA AND LATERAL (01/09/2019); CT CHEST WO CONTRAST (01/07/2019); XR CHEST AP PORTABLE (01/07/2019); CHEST TWO VIEWS [id number] (01/06/2019); FINDINGS: Mild cardiomegaly. No pneumothorax. Interstitial pulmonary edema with a improved right lung aeration. Persistent dense opacity at the right lung base probably representing a combination of residual pleural effusion and atelectasis. No acute bone abnormalities. Impression Improved right lung aeration. Persistent dense right lung opacity probably representing residual pleural effusion and atelectasis. Mild cardiomegaly with pulmonary edema. Signed by: Eliza Lloyd, Casimiro Sign Date/Time: 01/24/2019 2:12 AM Results for orders placed during the hospital encounter of 11/06/18 ECHO Complete Narrative Mildly dilated left ventricle. Severely reduced left ventricular systolic function. The left ventricular ejection fraction is 30%. Moderately dilated right ventricle. Normal right ventricular systolic function. Mild to moderate eccentric mitral regurgitation. Moderate to severe central tricuspid regurgitation. There is severe pulmonary hypertension. Estimated right ventricular systolic pressure (RVSP) is 73 mmHg. There is a left pleural effusion. Results for orders placed or performed during the hospital encounter of 01/23/19 ECG 12 lead Result Value Ref Range INTERPRETATION TEXT Sinus tachycardia Left axis deviation Nonspecific ST abnormality Abnormal ECG When compared with ECG of 09-JAN-2019 14:34, T wave inversion no longer evident in Lateral leads This ECG contains Unconfirmed Interpretation Statements. See ED Record for Physician Inter pretation. Confirmed by MUSE READ ONLY, -COMPUTER ([id number]), cellular biologist Daniela Luciano ([id number]) on 01/24/2019 5:16: 19 AM BRIEF HISTORY OF PRESENTATION: Dara Weldon is a 23 y.o. female who presented per H&P' past medical history o f Henoch swelling purpura, end-stage renal disease on hemodialysis Monday, CHF EF 30%, severe pulmonary hypertension, hypertension, recurrent right pleural effusion wh o presented with shortness of breath and mild chest pain on the right the last few days. Patient complains of shortness of breath has been going on for the last few days progressiv fredi getting worse. Also had some chest pain that is more right-sided. Feels similar to her previous pleural effusions. Also had one episode of dizziness and transient passing out wh ile taking a shower today and decided to come to the ER. Patient had her partial dialysis o n Monday before that she missed 2 sessions on Monday and Monday and last complete dialysi s was last week Monday. Has been complaining of increasing swelling of the lower extremities which usually she does not have. Denies any nausea vomiting fever chills abdominal pain diarrhea. In the ER patient had hypertension from 180 200 systolic, tachycardic to 114 sinus, hypox ic to 89 improved on 2 L of O2 . Labs overall stable and at baseline with potassium 5.2 BUN 58 bicarb 26, BNP 4300 (from baseline of 1100), mildly positive troponins and chest x-ray s howed large right pleural effusion status post thoracocentesis 1.5 L drainage in ER.Patient does smoke marijuana almost every day. Denies any other smoking or alcohol" HOSPITAL COURSE: She had two HD cessations and was off O2 she was advised on adherence Patient was discharged in stable condition. Addressed all of their questions and covered wi th side affects of newly added medications. she was cleared per consulting services. Past Medical History: Diagnosis Date Asthma Bacteremia due to Gram-positive bacteria 12/12/2018 Clotted dialysis access ([facility]) 2014 Congestive heart failure (HCC) ESRD (end stage renal disease) (HCC) HSP (Henoch-Schonlein purpura) nephritis ([facility]) 1987 Hypertension Pericardial effusion without cardiac tamponade 11/07/2018 Past Surgical History: Procedure Laterality Date ABDOMEN SURGERY AV FISTULA REPAIR 02/24/2014 LEFT Radical Cephalic Fistula Creation; Laterality: Left; Surgeon: Blake Chavarria MD ; Location: [facility] OR AV FISTULA REPAIR Left 03/07/2014 Procedure: AV FISTULA - GRAFT REPAIR/REVISION; Surgeon: Rik Simon MD; Location: [facility] OR; Service: Vascular; Laterality: Left; biopsy of kidney age 10 DIALYSIS FISTULA CREATION 04/08/2014 Procedure: DIALYSIS CATHETER - INSERTION; Surgeon: Rik Simon MD; Location: [facility] ; Service: Vascular; Laterality: N/A; tunneled catheter.br hemodialysis catheter KIDNEY BIOPSY Left 2003 OTHER SURGICAL HISTORY LAPAROSCOPIC PERITONEAL DIALYSIS CATHETER INSERTION - x2 OTHER SURGICAL HISTORY Right 07/2013 LAPAROSCOPIC PERITONEAL DIALYSIS CATHETER INSERTION - current dialysis access MWF dialysis OTHER SURGICAL HISTORY Left 06/24/2014 SUPERFICIALIZATION OF AV FISTULA - Procedure: AV FISTULA - SUPERFICIALIZATION; Surgeon: Emanuel Simon MD; Location: [facility] OR; Service: Vascular; Laterality: Left; OTHER SURGICAL HISTORY Left 04/08/2014 AV FISTULA PLACEMENT - Procedure: AV FISTULA; Surgeon: Rik Simon MD; Location: [facility]; Service: Vascular; Laterality: Left; cephalic OTHER SURGICAL HISTORY Left 03/07/2014 DECLOT GRAFT - Procedure: GRAFT - DECLOT; Surgeon: Rik Simon MD; Location: [facility] OR ; Service: Vascular; Laterality: Left; peritoneal catheter Allergies Allergen Reactions Adhesive & Tape Rash Certain tapes Fentanyl Itching Iodinated Diagnostic Agents Itching Pt c/o face itching during fistulagram Methylphenidate Other (See Comments) Patient says skin was crawling Morphine Itching and Rash Has used hydromorphone in-house. 01/24/19 Reglan [Metoclopramide] Itching Lisinopril cough No medications prior to admission. DISCHARGE EXAM Vital Signs: BP 147/73 | Pulse 82 | Temp 36.8 C (98.3 F) (Oral) | Resp 18 | Ht 1.676 m (5' 6") | Wt 71 kg (156 lb 8.4 oz) | LMP 06/23/2017 | SpO2 94% | No Comment: no per iods d/t kidney disease | BMI 25.26 kg/m General appearance: alert, appears stated age, [...] Pulses: 2+ and symmetric Neurologic: Grossly normal DATA Recent Labs 01/26/19 0537 01/25/19 0559 WBC 4.50 5.24 HGB 9.5* 9.5* HCT 27.7* 28.3* PLT 107* 106* Recent Labs 01/26/19 0537 01/25/19 0559 NA 140 138 K 4.0 4.8 CL 105 103 CO2 29 25 BUN 17 36* CREA 4.5* 6.9* CALCIUM 8.7 9.7 PHOS 4.9* 7.3* ALBUMIN 3.0* 3.1* Recent Labs 01/23/19 2327 BNP 4,312.07* No results for input(s): PROCALCITONI in the last 72 hours. Microbiology Results (72 hrs) No results found for the last 72 hours. Disposition: home Condition: Stable Code Status: Full Code No discharge procedures on file. Follow up: [place] [address] [place] [address] Schedule an appointment as soon as possible for a visit in 1 week Discharge Medications Changed Medications Details doxercalciferol 2 mcg/mL injection Inject 0.5 mLs into the vein Three times a week. Per dialysis clinic protocol What changed: how much to take aka: HECTOROL Unchanged Medications Details albuterol-ipratropium 2.5-0.5 mg/3 mL Soln Take 3 mLs by nebulization. carvedilol 6.25 mg tablet Take 1 tablet by [...] total) into the skin every 7 days. ondansetron 4 mg tablet Take 4 mg [...] the vein Once a week. Discontinued Medications losartan 25 mg tablet aka: ISIS Discharge took over 30 minutes, to include final examination, discussion of admission, and preparation of prescriptions, instructions for on-going care, follow-up and documentation o f discharge summary. Usha Martínez MD 01/26/2019 documented in t his encounter Medications at Time of Discharge + [...] tablet by | 60 | 11 | 01/11/20 | | | 6.25 mg tablet | mouth 2 times daily. | tablet | | 19 | | [...] tablets by | 3 | 0 | 01/11/20 | | | (KLONOPIN) 0.5 mg | mouth Daily as | tablet | | 19 | | | tablet | needed for [...] 1 tablet by | | 0 | 07/24/ | | | (PHENERGAN) 25 mg | [...] + documented as of this encounter Progress Daniela Olsen RN - 01/26/2019 11:37 AM PSTPt discharged home with mom. Discharge instr uctions given and reviewed with pt. No questions at time of discharge. 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 She denies any dizziness, cp, sob, abd pain, n /v. Her urine output is naught. The following portions of the patient's history were reviewed and updated as appropriate: l aboratory data, radiologic studies, allergies, current medications, and problem list. carvedilol 12.5 mg Oral BID WC citalopram 20 mg Oral Daily clopidogrel 75 mg Oral Daily epoetin jenna-epbx 10,000 Units Intravenous With each dialysis heparin 5,000 Units Subcutaneous 2 times per day lidocaine 1 patch Transdermal Daily losartan 50 mg Oral Daily pantoprazole 40 mg Oral QAM AC sevelamer carbonate 1,600 mg Oral TID WC sevelamer carbonate 1,600 mg Oral With Snacks sodium chloride 0.9% 10 mL Intracatheter 2 times per day P.E. BP 147/73 | Pulse 82 | Temp 36.8 C (98.3 F) (Oral) | Resp 18 | Ht 1.676 m (5' 6") | Wt 71 kg (156 lb 8.4 oz) | LMP 06/23/2017 | SpO2 94% | No Comment: no per iods d/t kidney disease | BMI 25.26 kg/m General appearance: Pleasant, not in acute distress. Lungs: Good A/E to auscultation except for the right base. There are no wheezes. Heart: Regular rate and rhythm without any rub, gallop. Grade 3/[address] at the apex. Abdominal exam: Soft and nontender with normal bowel sounds. Extremities: Warm to touch with no leg edema. There is no cyanosis or clubbing. Neurological: Awake, alert, and oriented to time, place, and person. Normal gross motor po wer. There is no asterixis. Recent Labs 01/26/19 0537 01/25/19 0559 01/24/19 0553 01/23/19 2326 BUN 17 36* 64* 58* CREA 4.5* 6.9* 11.2* 10.13* EGFR 12* 7* 4* 5* NA 140 138 140 144 K 4.0 4.8 5.6* 5.2* CL 105 103 103 104 CO2 29 25 24 26 CALCIUM 8.7 9.7 9.7 9.9 PHOS 4.9* 7.3* 8.6* 7.9* MG 2.2 2.3 2.6* -- ALBUMIN 3.0* 3.1* -- 4.2 HGB 9.5* 9.5* 10.7* 11.0* HCT 27.7* 28.3* 32.2* 33.2* IRON -- -- 81 -- I/O last 3 completed shifts: In: 200 [P.O.:200] Out: 2500 No intake/output data recorded. Assessment: Ms. Weldon is a 23 y.o. female patient with ESRD, HD. Severe non-compliance with dialysis. Severe non compliance with renal diet restrictions. Anemia in ESRD hyperPhos hypoalbuminemia -Presented with: "Shortness of Breath ("I have fluid in my lung and it needs to be tapped", pt has not been to dialysis for her last two appointments) -Admitted with: "SOB (shortness of breath) [R06.02] ESRD needing dialysis (HCC) [N18.6, Z99.2] Chronic pleural effusion [J90] Recommendations: No acute DIE CUT OPERATOR indication Management of the right pleural effusion per the primary team No need for IVF Strict low sodium in the diet stressed Strict low phosphorus in the diet stressed Vasoactive meds as ordered Monitor BP closely & frequently Reinforce lytes protocol Protein supplement stressed Strict I/O & daily weights. Dose all of meds to his current intermittent HD. Continue to avoid all kinds of nephrotoxins. Target euvolumia with a MAP>75 mmHg as possible. I discussed with the primary team the case before the time of this encounter. René Anguiano MD Kika Mcdaniels RN - 01/24/2019 5:55 PM PSTPt had dialysis today with 2 L removed. She is still on 2 L NC as O2 sat drops to 89 on RA. She had 10/10 swanson pain during dialysis and was vomiting and dry heavin g on and off. She also was complaining of severe chest pain, L side cramping over ribs and p ain over both her kidneys until dialysis was over she said pain was mostly resolved shortly after. Zofran given x2 during shift & 0.5 dilaudid given as one time order when pt was thro ugh with dialysis. Pain mostly resolved as pt slept good portion of afternoon and showered i n evening. BP still elevated but significantly improved. End of shift review complete. Elect ronically signed by Kika Olivarez, RN at 01/24/2019 6:11 PM Veena Mckoy RN - 6:26 AM PSTPt has continued to have hypertension since admission, medicated with sc heduled carvedilol as well as PRN hydralazine. Pt also co pain at [facility] site for which she i s medicated x1 with Dilaudid. Pt medicated x1 with PRN Zofran for nausea. Pt continues to be dyspneic with accessory muscle usage when breathing. Oxygen saturations in mid 80's on RA, sats remain >90% on 2L supplemental O2. Chart check complete. Veena García RN documented in this e ncounter Plan of Treatment +--------+---------+ + + + | Date | Type | Specialty | Care Team | Description | +--------+---------+ + + + | 04/18/ | Office | Pulmonology | Denny Alexander | | | 2020 | Visit | | Deny Briggs MD [address] | | | | | [address] | | | | | | [place] [address] | | | | | | [phone] | | | | | | | | +--------+---------+ + + + + +------+--------+ + + | Name | Type | Priori | Associated Diagnoses | Date/Time | | | | ty | | | + +------+--------+ + + | ED INFORMATION | SHEILA | Routin | | 01/23/2019 10:11 PM | | EXCHANGE | | e [...] R?MRN: | | | | | | [id number] | | | [id number] | | | riteri | | | [...] | | | [id number] | | | //19 | | | 12:00 | | | AM | | | [facility] | | | y | | | [...] | | | St. | | | [facility] | | | y | | | [...] | | | St. | | | [facility] | | | y | | | [...] | | | St | | | Ce[facility] | | | y | | | [...] St | | | | | | [facility] | | | y | | | [...] | | | St. | | | [facility] | | | y | | | [...] | | | St. | | | [facility] | | | y H. | | [...] | | | St. | | | [facility] | | | y H. | | [...] | | | pneumo | | | odntrell, | | | unspec | | | [...] | | | St. | | | [facility]res | | | y H. | | [...] | | | St. | | | [facility] | | | y H. | | [...] | | | St. | | | [facility]res | | | y H. | | [...] | | | St. | | | Ceres | | | y H. | | [...] | | | MD | | | Gang Worker | | | al | | | [...] | | | [id number] | | | [id number] | | | eb | | | [...] +---+--------+ documented in this encounter Results Magnesium (01/26/2019 5:37 AM PST) + + + + + + | Component | Value | Ref Range | Performed | Pathologist | | | | | At | Signature | + + + + + + | Magnesium | 2.2Comment: Testing | 1.7 - 2.4 mg/dL | [facility] | | | | performed at [facility], [address] | | LABORATORY | | | | [address], | | | | | | [place] [address] | | | | + + + + + + + + | Specimen | + + | | + + + + + + + | Performing | Address | City/State/Zipcode | Phone Number | | Organization | | | | + + + + + | [facility] | [address] | [place] [address] | [phone] | + + + + + CBC no Differential (01/26/2019 5:37 AM PST) + + + + + [...] | | | | | [place] [address] | | | | + + + + + + + + | Specimen | + + | | + + + + + + + | Performing | Address | City/State/Zipcode | Phone Number | | Organization | | | | + + + + + | [facility] | [address] | [place] [address] | [phone] | + + + + + Renal Function Panel (01/26/2019 5:37 AM PST) + + + + + [...] (L) | 3.6 - 5.0 g/dL | [facility] | | | | | | LABORATORY | | + + + + + + | Phosphorus | 4.9 (H) | 2.3 - 4.8 mg/dL | [facility] | | | | | | LABORATORY | | + + + + + + | Estimated | 12 (L)Comment: GFR <60: | >60 | [facility] [...] W | | | | | | [facility], | | | | | | [place] [address] | | | | + + + + + + + + | Specimen | + + | Blood | + + + + + + + | Performing | Address | City/State/Zipcode | Phone Number | | Organization | | | | + + + + + | [facility] | [address] | [place] [address] | [phone] | + + + + + HEMODIALYSIS [...] [R06.02] | | | ESRD needing dialysis ([facility]) [N18.6, Z99.2] Chronic pleural effusion | | [...] Anguiano MD | | + + + Magnesium (01/25/2019 5:59 AM PST) + + + + + + | Component | Value | Ref Range | Performed | Pathologist | | | | | At | Signature | + + + + + + | Magnesium | 2.3Comment: Testing | 1.7 - 2.4 mg/dL | [facility] | | | | performed at [facility], [address] | | LABORATORY | | | | [address], | | | | | | [place] [address] | | | | + + + + + + + + | Specimen | + + | | + + + + + + + | Performing | Address | City/State/Zipcode | Phone Number | | Organization | | | | + + + + + | [facility] | [address] | [place] [address] | [phone] | + + + + + CBC no Differential (01/25/2019 5:59 AM PST) + + + + + + | Component | Value | Ref Range | Performed | Pathologist | | | | | At | Signature | + + + + + + | WBC | 5.24 | 3.80 - 11.00 | [facility] | | | | | K/uL | LABORATORY | | + + + + + + | RBC | 2.57 (L) | 3.70 - 5.10 | [facility] | | | | | M/uL | LABORATORY | | + + + + + + | Hemoglobin | 9.5 (L) | 11.3 - 15.5 | [facility] | | | | | g/dL | LABORATORY | | + + + + + + | Hematocrit | 28.3 (L) | 34.0 - 46.0 % | [facility] | | | | | | LABORATORY | | + + + + + + | MCV | 110.1 (H) | 80.0 - 100.0 fl | [facility] | | | | | | LABORATORY | | + + + + + + | MCH | 37.1 (H) | 27.0 - 34.0 pg | [facility] | | | | | | LABORATORY | | + + + + + + | MCHC | 33.7 | 32.0 - 35.5 | [facility] | | | | | g/dL | LABORATORY | | + + + + + + | RDW-SD | 61.7 (H) | 37 - 53 fl | [facility] | | | | | | LABORATORY | | + + + + + + | Platelet | 106 (L) | 150 - 400 K/uL | [facility] | | | Count | | | LABORATORY | | + + + + + + | MPV | 10.7Comment: Testing | fl | [facility] | | | | performed at [facility], [address] | | LABORATORY | | | | [address], | | | | | | [place] [address] | | | | + + + + + + + + | Specimen | + + | | + + + + + + + | Performing | Address | City/State/Zipcode | Phone Number | | Organization | | | | + + + + + | [facility] | [address] | [place] [address] | [phone] | + + + + + Renal Function Panel (01/25/2019 5:59 AM PST) + + + + + [...] 25 | 23 - 32 mmol/L | [facility] [...] + + + + | BUN | 36 (H) | 8 - 25 mg/dL | [facility] | | | | | | LABORATORY | | + + + + + + | Creatinine | 6.9 (H) | 0.50 - 1.00 | [facility] [...] 7 (L)Comment: GFR <60: | >60 | [facility] | | | GFR | [...] | | | | | | MDRD IDPR traceable | | | | | | equation.Testing | | | | | | performed at [facility], [address] | | | | | | [facility], | | | | | | [place] [address] | | | | + + + + + + + + | Specimen | + + | Blood | + + + + + + + | Performing | Address | City/State/Zipcode | Phone Number | | Organization | | | | + + + + + | [facility] | [address] | [place] [address] | [phone] | + + + + + Iron [...] Testing | 15 - 50 % | [facility] | | | Saturation | performed at [facility], [address] | | LABORATORY | | | | [address], | | | | | | [place] [address] | | | | + + + + + + + + | Specimen | + + | Blood | + + + + + + + | Performing | Address | City/State/Zipcode | Phone Number | | Organization | | | | + + + + + | [facility] | [address] | [place] [address] | [phone] | + + + + + Ferritin [...] | | | | | [place] [address] | | | | + + + + + + + + | Specimen | + + | Blood | + + + + + + + | Performing | Address | City/State/Zipcode | Phone Number | | Organization | | | | + + + + + | [facility] | [address] | [place] [address] | [phone] | + + + + + Creatine Kinase, Isoenzymes (01/24/2019 5:53 AM PST) + + + + + + | Component | Value | Ref Range | Performed | Pathologist | | | | | At | Signature | + + + + + + | CK-MM | 100Comment: Testing | 97 - 100 % | [facility] | | | | performed by [facility], | | LABORATORY | | | | [address], | | | | | | [facility] [address] | | | | + + + + + + | CK-MB | 0Comment: Testing | 0 - 3 % | [facility] | | | | performed by [facility], | | LABORATORY | | | | [address] [facility], | | | | | | [facility] [address] | | | | + + + + + + | CK-BB | 0Comment: Testing | 0 % | [facility] | | | | performed by [facility], | | LABORATORY | | | | [address] [facility], | | | | | | [facility] [address] | | | | + + + + + + | CK, Total | 156Comment: Testing | 24 - 173 U/L | [facility] | | | | performed at [employer], | | LABORATORY | | | | [address], | | | | | | [place] [address] | | | | + + + + + + | CK-MACRO | 0 | Not Observed % | [facility] | | | TYPE 1 | | | LABORATORY | | + + + + + + | CK-MACRO | 0Comment: Testing | Not Observed % | [facility] | | | TYPE II | performed by [facility], | | LABORATORY | | | | [address], | | | | | | [place] [address] | | | | + + + + + + + + | Specimen | + + | Blood | + + + + + + + | Performing | Address | City/State/Zipcode | Phone Number | | Organization | | | | + + + + + | [facility] | [address] | [place] [address] | [phone] | + + + + + Phosphorus (01/24/2019 5:53 AM PST) + + + + + + | Component | Value | Ref Range | Performed | Pathologist | | | | | At | Signature | + + + + + + | Phosphorus | 8.6 (H)Comment: Testing | 2.3 - 4.8 mg/dL | [facility] | | | | performed at [facility], [address] | | LABORATORY | | | | [address], | | | | | | [place] [address] | | | | + + + + + + + + | Specimen | + + | Blood | + + + + + + + | Performing | Address | City/State/Zipcode | Phone Number | | Organization | | | | + + + + + | [facility] | [address] | [place] [address] | [phone] | + + + + + Magnesium (01/24/2019 5:53 AM PST) + + + + + + | Component | Value | Ref Range | Performed | Pathologist | | | | | At | Signature | + + + + + + | Magnesium | 2.6 (H)Comment: Testing | 1.7 - 2.4 mg/dL | [facility] | | | | performed at [facility], [address] | | LABORATORY | | | | [address], | | | | | | [place] [address] | | | | + + + + + + + + | Specimen | + + | Blood | + + + + + + + | Performing | Address | City/State/Zipcode | Phone Number | | Organization | | | | + + + + + | [facility] | [address] | [place] [address] | [phone] | + + + + + Basic Metabolic Panel (01/24/2019 5:53 AM PST) + + + [...] W | | | | | | [facility], | | | | | | [place] [address] | | | | + + + + + + + + | Specimen | + + | Blood | + + + + + + + | Performing | Address | City/State/Zipcode | Phone Number | | Organization | | | | + + + + + | [facility] | [address] | [place] [address] | [phone] | + + + + + CBC with Differential (01/24/2019 5:53 AM PST) + + +---- + + + | [...] | | | | | | at [facility], [address] | | | | | | [address], | | | | | | [place] [address] | | | | | |Testing performed at [facility], [address] [facility], [place] [address] | | | | | | | | | | + + +---- + + + + + | Specimen | + + | Blood | + + + + + + + | Performing | Address | City/State/Zipcode | Phone Number | | Organization | | | | + + + + + | [facility] | [address] | [place] [address] | [phone] | + + + + + Troponin I (01/24/2019 5:53 AM PST) + + + + + + | Component | Value | Ref Range | Performed | Pathologist | | | | | At | Signature | + + + + + + | Troponin I | 0.228 (H)Comment: 0.04 | 0.00 - 0.04 | [facility] | | | | ng/mL [...] at | | | | | | [facility];[address] [facility] | | | | | | vd;[place] [address] | | | | + + + + + + + + | Specimen | + + | Blood | + + + + + + + | Performing | Address | City/State/Zipcode | Phone Number | | Organization | | | | + + + + + | [facility] | [address] | [place] [address] | [phone] | + + + + + XR Chest AP Portable (01/24/2019 1:35 AM PST) + + | Specimen | [...] CHEST AP PORTABLE (01/07/2019); CHEST TWO VIEWS [id number] (01/06/2019); | | | FINDINGS: Mild cardiomegaly. [...] PORTABLE (01/07/2019); CHEST | | TWO VIEWS 82127 (01/06/2019); | | | | FINDINGS: | [...] (H)Comment: | 0 - 100 pg/mL | [facility] | | | | Testing performed at | | LABORATORY | | | | [facility];[address] [place] [address] | | | | | | Blvd;[place] [address] | | | | + + + + + + + + | Specimen | + + | Blood | + + + + + + + | Performing | Address | City/State/Zipcode | Phone Number | | Organization | | | | + + + + + | [facility] | [address] | [place] [address] | [phone] | + + + + + Phosphorus (01/23/2019 11:26 PM PST) + + + + + + | Component | Value | Ref Range | Performed | Pathologist | | | | | At | Signature | + + + + + + | Phosphorus | 7.9 (H)Comment: Testing | 2.3 - 4.8 mg/dL | [facility] | | | | performed at [facility];[address] | | LABORATORY | | | | [address];[place], [place] | | | | | | [address] | | | | + + + + + + + + | Specimen | + + | Blood | + + + + + + + | Performing | Address | City/State/Zipcode | Phone Number | | Organization | | | | + + + + + | [facility] | [address] | [place] [address] | [phone] | + + + + + Troponin I (01/23/2019 11:26 PM PST) + + + + + + | Component | Value | Ref Range | Performed | Pathologist | | | | | At | Signature | + + + + + + | Troponin I | 0.169 (H)Comment: 0.04 | 0.00 - 0.04 | [facility] | | | | ng/mL [...] at | | | | | | [facility];[address] [facility] | | | | | | [facility];[place] [address] | | | | + + + + + + + + | Specimen | + + | Blood | + + + + + + + | Performing | Address | City/State/Zipcode | Phone Number | | Organization | | | | + + + + + | [facility] | [address] | [place] [address] | [phone] | + + + + + Comprehensive Metabolic Panel (01/23/2019 11:26 PM PST) + + + + + [...] 37 | 10 - 65 U/L | [facility] [...] | | | | | performed at [facility];[address] | | | | | | [facility];[place], [place] | | | | | | [address] | | | | + + + + + + + + | Specimen | + + | Blood | + + + + + + + | Performing | Address | City/State/Zipcode | Phone Number | | Organization | | | | + + + + + | [facility] | [address] | [place] [address] | [phone] | + + + + + CBC with Differential (01/23/2019 11:26 PM PST) + + + + + + | Component | Value | Ref Range | Performed | Pathologist | | | | | At | Signature | + + + + + + | WBC | 6.15 | 3.80 - 11.00 | [facility] | | | | | K/uL | LABORATORY | | + + + + + + | RBC | 3.04 (L) | 3.70 - 5.10 | [facility] | | | | | M/uL | LABORATORY | | + + + + + + | Hemoglobin | 11.0 (L) | 11.3 - 15.5 | [facility] | | | | | g/dL | LABORATORY | | + + + + + + | Hematocrit | 33.2 (L) | 34.0 - 46.0 % | [...] MCHC | 33.0 | 32.0 - 35.5 | [facility] | | | | | g/dL | LABORATORY | | + + + + + + | RDW-SD | 61.7 (H) | 37 - 53 fl | [facility] | | | | | | LABORATORY | | + + + + + + | Platelet | 110 (L) | 150 - 400 K/uL | [...] + + + + | % | 74.95 | % | [facility] | | | Neutrophils | | | LABORATORY | | + + + + + + | % | 12.50 | % | [facility] | | | Lymphocytes | | | LABORATORY | | + + + + + + | Monocyte % | 5.34 | % | [facility] | | | | | | LABORATORY | | + + + + + + | Eosinophils | 6.39 | % | [facility] | | | % | | | LABORATORY | | + + + + + + | Basophils % | 0.82 | % | [facility] | | | | | | LABORATORY | | + + + + + + | Neutrophils | 4.61 | 1.90 - 7.40 | [facility] | | | , Absolute | | K/uL | LABORATORY | | + + + + + + | Absolute | 0.77 (L) | 1.00 - 3.90 | [facility] | | | Lymphocytes | | K/uL | LABORATORY | | + + + + + + | Absolute | 0.33 | 0.00 - 0.80 | [facility] | | | Monocytes | | K/uL | LABORATORY | | + + + + + + | Eosinophils | 0.39 | 0.00 - 0.50 | [facility] | | | , Absolute | | K/uL | LABORATORY | | + + + + + + | Basophils, | 0.05 | 0.00 - 0.10 | [facility] | | | Absolute | | K/uL | LABORATORY | | + + + + + + | RBC | 2+ | | [facility] | | | Morphology | Comment: | | LABORATORY | | | | MACRO | | | | | | 2+ | | | | | | ANISO | | | | | | NORMAL PLT MORPH | | | | | | | | | | + + + + + + | Platelet | DECREASEDComment: | | [facility] | | | Estimate | Testing performed at | | LABORATORY | | | | [facility];[address] [place] [address] | | | | | | Blvd;[place] [address] | | | | + + + + + + + + | Specimen | + + | Blood | + + + + + + + | Performing | Address | City/State/Zipcode | Phone Number | | Organization | | | | + + + + + | [facility] | [address] | [place] [address] | [phone] | + + + + + XR [...] (01/07/2019); CHEST TWO | | | VIEWS [id number] (01/06/2019); XR CHEST AP PORTABLE (12/13/2018); | [...] CHEST AP PORTABLE (01/07/2019); CHEST TWO VIEWS [id number] (01/06/2019); XR | | CHEST AP PORTABLE [...] | | | | Signed by: Eliza Marinelli Pushpender | | Sign Date/Time: 01/23/2019 11:26 PM | + + + +---------+ + + | Performing | Address | City/State/Zipcode | Phone Number | | Organization | | | | + +---------+ + + | [facility] | | | | + +---------+ + + ECG 12 lead (01/23/2019 10:58 PM PST) + + + + + [...] | | | | | ONLY, -COMPUTER ([id number]), | | | | | | cellular biologist Daniela Luciano | | | | | [...] correct | | | patient, procedure, equipment, production support engineer and site/side marked as | [...] space: 6th Puncture method: | | | [id number] catheter Number of attempts: 1 Drainage amount: 1500 | | | ml Drainage characteristics: clear Patient tolerance: Patient | | | tolerated the procedure well with no immediate complications Chest | | | x-ray performed: yes Chest x-ray interpreted by radiologist. Chest | | | x-ray findings: pleural effusion (improved) | | + + + documented in this encounter Visit Diagnoses + + | Diagnosis | + + | Acute hypoxemic respiratory failure (HCC) - Primary | + + | SOB (shortness of breath) Shortness of breath | + + | ESRD needing dialysis (HCC) End stage renal disease | + + | Chronic pleural effusion | + + | Noncompliance with renal dialysis (HCC) Noncompliance with renal dialysis | + + | Acute respiratory distress Other pulmonary insufficiency, not elsewhere classified | + + | Anemia in ESRD (end-stage renal disease) (HCC) Anemia in chronic kidney disease | + + | At high risk for electrolyte imbalance | + + | ESRD on hemodialysis (HCC) End stage renal disease | + + | Hyperphosphatemia Disorders of phosphorus metabolism | + + | Noncompliance Personal history of noncompliance with medical treatment, presenting | | hazards to health | + + | Recurrent right pleural effusion Unspecified pleural effusion | + + | Hypoalbuminemia Other disorders of plasma protein metabolism | + + | Non-compliance Personal history of noncompliance with medical treatment, presenting | | hazards to health | + + | Uncontrolled hypertension Unspecified essential hypertension | + + | History of Henoch-Schonlein purpura Personal history of diseases of skin and | | subcutaneous tissue | + + | Chronic 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) Chronic combined systolic | | and diastolic heart failure | + + | Non-rheumatic mitral regurgitation | + + | Acute on chronic combined systolic and diastolic CHF (congestive heart failure) (HCC) | + + documented in this encounter Administered Medications + + + +--------+------+------+ | Medication Order | MAR | Action | Dose | Rate | Site | | | Action | Date | | | | + + + +--------+------+------+ | acetaminophen (TYLENOL) tablet | Given by | 01/25/20 | 650 mg | | | | 650 mg 650 mg, Oral, EVERY 4 | Other | 19 11:44 | | | | | HOURS PRN, Pain, or fever >= 38.6 | | AM PST | | | | | C (101.5 F), Starting Little | | | | | | | 01/24/19 at 0355 | | | | | | + + + +--------+------+------+ + +---+ | | | + +---+ | albumin 25% IVPB 12.5 g 12.5 | | | g, Intravenous, Administer over | | | 60 Minutes, DIALYSIS - PRN, | | | Hypotension, Starting Little | | | 01/24/19 at 0833, For 4 doses, | | | Treatment date(s): 01/24/2019, | | | For BP less than 100 mm Hg. | | | DIALYSIS USE ONLY - DISCONTINUE | | | AFTER DIALYSIS THERAPY IS | | | COMPLETE, Dialysis | | + +---+ | | | + +---+ + +-------+ +---------+---+---+ | carvedilol (COREG) tablet 12.5 | Given | 01/27/20 | 12.5 mg | | | | mg 12.5 mg, Oral, 2 TIMES DAILY | | 19 8:00 | | | | | WITH BREAKFAST & DINNER, First | | AM PST | | | | | dose (after last modification) on | | | | | | | [facility] 01/24/19 at 0305 | | | | | | + +-------+ +---------+---+---+ +-------+ +---------+---+---+ | Given | 01/26/20 | 12.5 mg | | | | | 19 8:30 | | | | | | PM PST | | | | +-------+ +---------+---+---+ | Given | 01/26/20 | 12.5 mg | | | | | 19 9:23 | | | | | | AM PST | | | | +-------+ +---------+---+---+ +---+---+ | | | +---+---+ + +-------+ +-------+---+---+ | citalopram (celeXA) tablet 20 | Given | 01/27/20 | 20 mg | | | | mg 20 mg, Oral, DAILY, First | | 19 8:00 | | | | | dose on [facility] 01/24/19 at 0900 | | AM PST | | | | + +-------+ +-------+---+---+ +-------+ +-------+---+---+ | Given | 01/26/20 | 20 mg | | | | | 19 9:23 | | | | | | AM PST | | | | +-------+ +-------+---+---+ | Given | 01/25/20 | 20 mg | | | | | 19 2:09 | | | | | | PM PST | | | | +-------+ +-------+---+---+ +---+---+ | | | +---+---+ + +-------+ +-------+---+---+ | clopidogrel (PLAVIX) tablet 75 | Given | 01/27/20 | 75 mg | | | | mg 75 mg, Oral, DAILY, First | | 19 8:00 | | | | | dose on Little 01/24/19 at 0900 | | AM PST | | | | + +-------+ +-------+---+---+ +-------+ +-------+---+---+ | Given | 01/26/20 | 75 mg | | | | | 19 9:23 | | | | | | AM PST | | | | +-------+ +-------+---+---+ | Given | 01/25/20 | 75 mg | | | | | 19 2:09 | | | | | | PM PST | | | | +-------+ +-------+---+---+ + +---+ | | | + +---+ | diphenhydrAMINE (BENADRYL) | | | capsule 25 mg 25 mg, Oral, EVERY | | | 6 HOURS PRN, Itching, Starting | | | Little 01/24/19 at 1410 | | + +---+ | | | + +---+ + +-------+ +---------+---+---+ | epoetin jenna-epbx (RETACRIT) | Given | 01/26/20 | 10,000 | | | | 10,000 units/mL injection 10,000 | | 19 6:01 | Units | | | | Units 10,000 Units, Intravenous, | | PM PST | | | | | WITH EACH DIALYSIS, Starting Fri | | | | | | | 01/25/19 at 1515, Keep in | | | | | | | refrigerator. Do not shake., | | | | | | | ESRD-related (i.e. dialysis) | | | | | | | indication? Yes, Dialysis | | | | | | + +-------+ +---------+---+---+ +---+---+ | | | +---+---+ + +-------+ +-------+---+---+ | furosemide (LASIX) injection 80 | Given | 01/25/20 | 80 mg | | | | mg 80 mg, Intravenous, ONCE, | | 19 4:24 | | | | | Little 01/24/19 at 0310, For 1 dose | | AM PST | | | | + +-------+ +-------+---+---+ +---+---+ | | | +---+---+ + +-------+ +-------+---+---+ | hydrALAZINE (APRESOLINE) | Given | 01/25/20 | 10 mg | | | | injection 10 mg 10 mg, | | 19 2:10 | | | | | Intravenous, EVERY 6 HOURS PRN, | | PM PST | | | | | For systolic BP > 160mmHG, | | | | | | | Starting [facility] 01/24/19 at 0304 | | | | | | + +-------+ +-------+---+---+ +-------+ +-------+---+---+ | Given | 01/25/20 | 10 mg | | | | | 19 4:20 | | | | | | AM PST | | | | +-------+ +-------+---+---+ +---+---+ | | | +---+---+ + +-------+ +--------+---+--------+ | HYDROmorphone (DILAUDID) | Given | 01/25/20 | 0.5 mg | | Right | | injection 0.5 mg 0.5 mg, | | 19 1:26 | | | Arm | | Intravenous, ONCE, [facility] 01/24/19 | | AM PST | | | | | at 0125, For 1 dose | | | | | | + +-------+ +--------+---+--------+ +---+---+ | | | +---+---+ + +-------+ +--------+---+---+ | HYDROmorphone (DILAUDID) | Given | 01/25/20 | 0.5 mg | | | | injection 0.5 mg 0.5 mg, | | 19 1:13 | | | | | Intravenous, ONCE, [facility] 01/24/19 | | PM PST | | | | | at 1215, For 1 dose | | | | | | + +-------+ +--------+---+---+ +---+---+ | | | +---+---+ + +-------+ +------+---+---+ | HYDROmorphone (DILAUDID) | Given | 01/25/20 | 1 mg | | | | injection 1 mg 1 mg, | | 19 4:20 | | | | | Intravenous, ONCE, [facility] 01/24/19 | | AM PST | | | | | at 0310, For 1 dose | | | | | | + +-------+ +------+---+---+ + +---+ | | | + +---+ | labetalol (TRANDATE) 5 mg/mL | | | injection 10 mg 10 mg, | | | Intravenous, EVERY 4 HOURS PRN, | | | SBP>160, Starting 01/25/19 at | | | 0839 | | + +---+ | | | + +---+ | lidocaine (LIDODERM) 5% patch 1 | | | patch 1 patch, Transdermal, | | | DAILY, First dose on Mon01/24/19 | | | at 1430, Apply for 12 hours, | | | then remove for 12 hours., Time | | | to remove patch: 2:10 PM | | + +---+ | | | + +---+ + +-------+ +-------+---+---+ | lidocaine (PF) 1% injection 10 | Given | 01/25/20 | 8 mLs | | | | mL 10 mL, Infiltration, ONCE, | | 19 1:46 | | | | | [facility] 01/24/19 at 0030, For 1 dose | | AM PST | | | | + +-------+ +-------+---+---+ +---+---+ | | | +---+---+ + +-------+ +-------+---+---+ | losartan (COZAAR) tablet 50 mg | Given | 01/27/20 | 50 mg | | | | 50 mg, Oral, DAILY, First dose | | 19 8:00 | | | | | (after last reorder) on Little | | AM PST | | | | | 01/24/19 at 1000 | | | | | | + +-------+ +-------+---+---+ +-------+ +-------+---+---+ | Given | 01/26/20 | 50 mg | | | | | 19 9:23 | | | | | | AM PST | | | | +-------+ +-------+---+---+ | Given | 01/25/20 | 50 mg | | | | | 19 2:09 | | | | | | PM PST | | | | +-------+ +-------+---+---+ +---+---+ | | | +---+---+ + +-------+ +------+---+---+ | ondansetron (ZOFRAN) injection | Given | 01/27/20 | 4 mg | | | | 4 mg 4 mg, Intravenous, EVERY 6 | | 19 1:36 | | | | | HOURS PRN, Nausea, Vomiting, | | AM PST | | | | | Starting [facility] 01/24/19 at 0355, | | | | | | | First line agent, | | | | | | + +-------+ +------+---+---+ +-------+ +------+---+---+ | Given | 01/26/20 | 4 mg | | | | | 19 1:56 | | | | | | PM PST | | | | +-------+ +------+---+---+ | Given | 01/25/20 | 4 mg | | | | | 19 11:17 | | | | | | PM PST | | | | +-------+ +------+---+---+ +---+---+ | | | +---+---+ + +-------+ +------+---+---+ | ondansetron (ZOFRAN) injection | Given | 01/25/20 | 8 mg | | | | 8 mg 8 mg, Intravenous, ONCE, | | 19 2:47 | | | | | [facility] 01/24/19 at 0240, For 1 dose | | AM PST | | | | + +-------+ +------+---+---+ + +---+ | | | + +---+ | oxyCODONE-acetaminophen | | | (PERCOCET) 5-325 mg per tablet 1 | | | tablet 1 tablet, Oral, EVERY 6 | | | HOURS PRN, Moderate Pain, Within | | | 1 to 2 hours of nonresponsive to | | | Tylenol, Starting [facility] 01/24/19 at | | | 1409 | | + +---+ | | | + +---+ + +-------+ +-------+---+---+ | pantoprazole (PROTONIX) DR | Given | 01/27/20 | 40 mg | | | | tablet 40 mg 40 mg, Oral, DAILY | | 19 8:00 | | | | | BEFORE BREAKFAST, First dose on | | AM PST | | | | | Little 01/24/19 at 0630, Do not cut | | | | | | | or crush., Indication: GERD | | | | | | + +-------+ +-------+---+---+ +-------+ +-------+---+---+ | Given | 01/26/20 | 40 mg | | | | | 19 6:25 | | | | | | AM PST | | | | +-------+ +-------+---+---+ | Given | 01/25/20 | 40 mg | | | | | 19 8:10 | | | | | | AM PST | | | | +-------+ +-------+---+---+ +---+---+ | | | +---+---+ + +-------+ +---------+---+--------+ | promethazine (PHENERGAN) (IV | Given | 01/25/20 | 12.5 mg | | Right | | ONLY) injection 12.5 mg 12.5 mg, | | 19 12:51 | | | Arm | | Intravenous, ONCE, Little 01/24/19 | | AM PST | | | | | at 0035, For 1 dose, Vesicant. | | | [...] | | | | | + +-------+ +---------+---+--------+ +---+---+ | | | +---+---+ + +-------+ + +---+---+ | sevelamer carbonate (RENVELA) | Given | 01/27/20 | 1,600 mg | | | | tablet 1,600 mg 1,600 mg, Oral, | | 19 8:00 | | | | | 3 TIMES DAILY WITH MEALS, First | | AM PST | | | | | dose (after last modification) on | | | | | | | Little 01/24/19 at 0800, Do not cut | | | | | | | or crush tablets. Hold if not | | | | | | | eating., | | | | | | + +-------+ + +---+---+ +-------+ + +---+---+ | Given | 01/26/20 | 1,600 mg | | | | | 19 8:30 | | | | | | PM PST | | | | +-------+ + +---+---+ | Given | 01/26/20 | 1,600 mg | | | | | 19 11:43 | | | | | | AM PST | | | | +-------+ + +---+---+ + +---+ | | | + +---+ | sevelamer carbonate (RENVELA) | | | tablet 1,600 mg 1,600 mg, Oral, | | | WITH SNACKS, Starting Little | | | 01/24/19 at 0411, Do not cut or | | | crush tablets., | | + +---+ | | | + +---+ | sodium chloride 0.9% (NS) bolus | | | 100 mL 100 mL, Intravenous, | | | Administer over 15 Minutes, | | | DIALYSIS - PRN, Hypotension, | | | Starting Little 01/24/19 at 0833, | | | Treatment date(s): 01/24/2019, | | | For BP less than 100 mm Hg. Give [...] - PRN, Hypotension, | | | Starting 01/25/19 at 1452, | | | Treatment date(s): 01/25/2019, | | | For BP less than 100 mm Hg. Give | | | 100 mL bolus up to 1000 mL. | | | DIALYSIS USE ONLY - DISCONTINUE | | | AFTER DIALYSIS THERAPY IS | | | COMPLETE, Dialysis | | + +---+ | | | + +---+ + +-------+ +--------+---+---+ | sodium chloride 0.9% flush 10 | Given | 01/27/20 | 10 mLs | | | | mL 10 mL, Intracatheter, EVERY | | 19 1:36 | | | | | 12 HOURS (2 times per day), First | | AM PST | | | | | dose on Little 01/24/19 at 0900, | | | | | | | Treatment date(s): 01/24/2019, | | | | | | | Dialysis | | | | | | + +-------+ +--------+---+---+ +-------+ +--------+---+---+ | Given | 11/22/20 | 10 mLs | | | | | 19 9:00 | | | | | | PM PST | | | | +-------+ +--------+---+---+ | Given | 11/22/20 | 10 mLs | | | | | 19 9:57 | | | | | | AM PST | | | | +-------+ +--------+---+---+ +---+---+ | | | +---+---+ documented in this encounter
--- OUTSIDE RECORDS SUMMARY | ~2019-03-12 | XMS | Encounter Summary ---
Demographics + + + | Address | [address] | | | [place] [address] | + + + | Home Phone [...] | Author | [facility] | | | and Josephana | + + + | Organization | [facility] | | | and [...] Team Providers + +------+ + | Care Tip Banding Machine Operator Name | Role | Phone [...] | | [address] | [place] | | | | | [place], [place] | [place], [place] | | | | | [address] | [address] | | | | | [phone] | | | +--------+--------+ + + + [...] | | | | | [place] [address] | | | | | | [phone] | | | | | | | | +--------+---------+ + + + documented as of this encounter Visit Diagnoses Not on filedocumented in this encounter"
--- OUTSIDE RECORDS SUMMARY | ~2019-03-12 | XMS | Encounter Summary ---
Demographics + + + | Address | [address] | | | [place] [address] | + + + | Home Phone [...] | | | | | [place] [address] | | + + + + + | Thania Mallory | ECON | [address] | | | | | [place] [address] | | + + + + + | Deidra Weldon | ECON | [address] | | | | | [place] | | | | | [address] | | + + + + + Care Team Providers + +------+ + | Care Woodworking Bench Carpenter Name | Role | Phone | [...] | | | | | [place], | | | | | | [place] [address] | | | +--------+ + + + [...] Denise | | | | | | [place], [place] | | | | | | [address] | | | | | | [phone] | | | | | | | [...] [facility] - | [address], | [place] [address] | | | IMMUNOGENETICS/TRANS | [address] | | | | [facility] | | | | + + + + + documented in this encounter Visit Diagnoses Not on filedocumented in this encounter"
--- OUTSIDE RECORDS SUMMARY | ~2019-03-12 | XMS | Encounter Summary ---
Demographics + + + | Address | [address] | | | [place] [address] | + + + | Home Phone [...] | | | | | [place] [address] | | + + + + + | Thania Mallory | ECON | [address] | | | | | [place] [address] | | + + + + + | Deidra Weldon | ECON | [address] | | | | | [place] | | | | | [address] | | + + + + + Care Team Providers + +------+ + | Care Relocation Associate Name | Role | Phone | [...] Hoffmann Elias | [facility] | referral) | | | | [facility], | [place], [place] | | | | | [place] [address] | [address] | | | | | [phone] | | | +--------+ + + + [...] [facility] | | | | | | [address] | | | | | | [phone] | | | | | | | | +--------+ + + + + documented as of this encounter Visit Diagnoses Not on filedocumented in this encounter"
--- OUTSIDE RECORDS SUMMARY | ~2019-03-12 | XMS | Encounter Summary ---
Demographics + + + | Address | [address] | | | [place] [address] | + + + | Home Phone [...] Author | [facility] | | | and Josephana | + + + | Organization | [facility] | [...] Team Providers + +------+ + | Care Clay Puddler Name | Role | Phone | + [...] NEPHROLOGY [address] | MD [address] | | | | | [address] | [address] [place] | | | | | [place], [place] | [place] [address] | | | | | [address] | [phone] | | | | | [phone] | | | +--------+ + + + [...] [place] | | | | | | [place] [address] | | | | | | [phone] | | | | | | | | +--------+---------+ + + + documented as of this encounter Visit Diagnoses Not on filedocumented in this encounter"
--- OUTSIDE RECORDS SUMMARY | ~2019-03-12 | XMS | Clinical Summary ---
Demographics + + + | Address | [address] | | | [place] [address] | + + + | Home Phone [...] | | | | | [place] [address] | | + + + + + | Thania Mallory | ECON | [address] | | | | | [place] [address] | | + + + + + | Deidra Weldon | ECON | [address] | | | | | [place], [place] | | | | | [address] | | + + + + + Care Team Providers + +------+ + | Care Car Inspection And Repair Manager Name | Role | Phone | + +------+ + | Jonathan Alonso MD | PCP | | + +------+ + Source Comments DANILO is fully live on both EpicCare Ambulatory and EpicCare InPatient.[facility] Allergies + + + + + [...] Denise | | | | | | [place], [place] | | | | | | [address] | | | | | | [phone] | | | | | | | [...] | | | | | | | [address] | | + +--------+ +--------+ + +--------+ | CERTIFIED ORTHOTIST PRACTICE MANAGER MEDICAID | CERTIFIED ORTHOTIST PRACTICE MANAGER | xxxxxxxx | Effect | | | [...] | 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
--- OUTSIDE RECORDS SUMMARY | ~2019-03-12 | XMS | Encounter Summary ---
Demographics + + + | Address | [address] | | | [place] [address] | + + + | Home Phone [...] | Author | [facility] | | | and Josephana | + + + | Organization | [facility] [...] Providers + +------+ + | Care Job Captain Name | Role | Phone | + +------+ + | Jonathan Alonso MD | PCP | | + +------+ + Encounter Details +--------+ + + + + | Date | Type | Department | Care Team | Description | +--------+ + + + + | 08/13/ | Emergency | [facility] | | | | 2019 | | MEDICAL CENTER | | | | | | EMERGENCY CENTER | | | | | | [address] | | | | | | [place], [place] | | | | | | [address] | | | | | | [phone] | | | +--------+ + + + [...] [place] | | | | | | [place] [address] | | | | | | [phone] | | | | | | | | +--------+---------+ + + + documented as of this encounter Visit Diagnoses Not on filedocumented in this encounter"
--- OUTSIDE RECORDS SUMMARY | ~2019-03-12 | XMS | Encounter Summary ---
Demographics + + + | Address | [address] | | | [place] [address] | + + + | Home Phone [...] | | | | | [place] [address] | | + + + + + | Thania Mallory | ECON | [address] | | | | | [place] [address] | | + + + + + | Deidra Weldon | ECON | [address] | | | | | [place] | | | | | [address] | | + + + + + Care Team Providers + +------+ + | Care Engraving Patternmaker Name | Role | Phone | [...] SSA) | | | | Caro [address] [place], | [place], [place] | | | | | [place] [address] | [address] | | | | | [phone] | | | +--------+ + + + [...] Denise | | | | | | [place] | | | | | | [address] | | | | | | [phone] | | | | | | | | +--------+ + + + + documented as of this encounter Visit Diagnoses Not on filedocumented in this encounter"
--- OUTSIDE RECORDS SUMMARY | ~2019-03-12 | XMS | Encounter Summary ---
Demographics + + + | Address | [address] | | | [place] [address] | + + + | Home Phone [...] | Author | [facility] | | | and Josephana | + + + | Organization | [facility] | | | and [...] Providers + +------+ + | Care Communication Consultant Name | Role | Phone | + +------+ + | Jonathan Alonso MD | PCP | | + +------+ + Encounter Details +--------+ + + + + | Date | Type | Department | Care Team | Description | +--------+ + + + + | 03/27/ | Orders Only | [facility] | Rik Simon MD | | | 2014 | | VASCULAR SURGERY | [address] | | | | | [address]TR[address] | [place], [place] | | | | | [address] [place] | [address] | | | | | [place], [place] | [phone] | | | | | [address] | | | | | | [phone] | | | +--------+ + + + [...] [place] | | | | | | [place] [address] | | | | | | [phone] | | | | | | | [...]
--- OUTSIDE RECORDS SUMMARY | ~2019-03-12 | XMS | Encounter Summary ---
Demographics + + + | Address | [address] | | | [place] [address] | + + + | Home Phone [...] | | | | | [place] [address] | | + + + + + | Thania Mallory | ECON | [address] | | | | | [place] [address] | | + + + + + | Deidra Weldon | ECON | [address] | | | | | [place] | | | | | [address] | | + + + + + Care Team Providers + +------+ + | Care Side Guider Name | Role | Phone | + [...] Update | | | | [place] | [facility] | | | | | [facility] | [place], [place] | | | | | [address] | [address] | | | | | Mailcode: DCH7 | | | | | | [place] | | | | | | [place], [place] | | | | | | [address] | | | | | | [phone] | | | +--------+ + + + [...] [place] | | | | | | [address] | | | | | | [phone] | | | | | | | | +--------+ + + + + documented as of this encounter Visit Diagnoses Not on filedocumented in this encounter"
--- OUTSIDE RECORDS SUMMARY | ~2019-03-12 | XMS | Encounter Summary ---
Demographics + + + | Address | [address] | | | [place] [address] | + + + | Home Phone [...] | | | | | [place] [address] | | + + + + + | Thania Mallory | ECON | [address] | | | | | [place] [address] | | + + + + + | Deidra Weldon | ECON | [address] | | | | | [place] | | | | | [address] | | + + + + + Care Team Providers + +------+ + | Care Patient Transition Specialist Name | Role | Phone | [...] [address] | | | | | ([facility]) | Shun Griffin | Mailcode: | | | | | Procedures | Caro Chan | D[facility] | | | | | TRANSTHORACI | [place], [place] | [address] | | | | | C | [address] | [place], [place] | | | | | ECHOCARDIOGR | Phone: | [phone] | | | | | AM, PEDS | [phone] | Phone: | | | | | | Fax: | [phone] | | | | | | [phone] | Fax: | | | | | | | [phone] | +--------+--------+ + + + + Reason [...] | | conchita | [address] | [facility] | | | | | (HCC) | Shun Griffin | Mailcode: | | | | | Procedures | Caro Chan | [facility] | | | | | TRANSTHORACI | [place], [place] | [place] | | | | | C | [address] | [place], [place] | | | | | ECHOCARDIOGR | Phone: | [phone] | | | | | AMKAJALS | [phone] | Phone: | | | | | | Fax: | [phone] | | | | | | [phone] | Fax: | | | | | | | [phone] | +--------+--------+ + + + + Encounter Details +--------+ + + + + | Date | Type | Department | Care Team | Description | +--------+ + + + + | 12/20/ | Hospital | Pediatric Echo Lab | | | | 2012 | Encounter | at [facility] [address] | | | | | | [address] Mailcode: | | | | | | ALH8S [place] | | | | | | [place], [place] | | | | | | [address] | | | | | | [phone] | | | +--------+ + + + [...] Denise | | | | | | [place], [place] | | | | | | [address] | | | | | | [phone] | | | | | | | [...]
--- OUTSIDE RECORDS SUMMARY | ~2019-03-12 | XMS | Encounter Summary ---
Demographics + + + | Address | [address] | | | [place] [address] | + + + | Home Phone [...] | | | | | [place] [address] | | + + + + + | Thania Mallory | ECON | [address] | | | | | [place] [address] | | + + + + + | Deidra Weldon | ECON | [address] | | | | | [place] | | | | | [address] | | + + + + + Care Team Providers + +------+ + | Care Can Handler Name | Role | Phone | + [...] | | | [address] | [facility] | | | | | Caro [address] [place], | [place], [place] | | | | | [place] [address] | [address] | | | | | [phone] | | | +--------+ + + + [...] Denise | | | | | | [place] | | | | | | [address] | | | | | | [phone] | | | | | | | | +--------+ + + + + documented as of this encounter Visit Diagnoses Not on filedocumented in this encounter"
--- OUTSIDE RECORDS SUMMARY | ~2019-03-12 | XMS | Encounter Summary ---
Demographics + + + | Address | [address] | | | [place] [address] | + + + | Home Phone [...] | [facility] | | | and [place]ana | + + + | Organization | [facility] | | [...] Team Providers + +------+ + | Care Sensitized Paper Tester Name | Role | Phone | [...] | | | | [address] | [place], [place] | [place], [place] | | | | | stage renal | [address] | [address] Phone: | | | | | disease | Phone: | [phone] | | | | | ([facility]) | [phone] | Fax: | | | | | Infection | Fax: | [phone] | | | | | and | [phone] | | | | | | inflammatory [...] M, DO [address] | renal disease) ([facility]) | | | | [address] | [place], [address] | (Primary Dx) | | | | [place], [place] | [place], [place] | | | | | [address] | [address] | | | | | [phone] | | | +--------+ + + + [...] into the vein Three times a w sauk-suiattle. epoetin jenna (EPOGEN, PROCRIT) 10,000 units/mL injection [...] she should keep up t his effort prison. 3. Heat, Daniel Denny, OTC, and tramadol, short term for her back. 4. Will recheck her in 1 week. CC: [place] Fina Joy MD, [facility], [facility] signed by Jorje Camp DO at 10/27/2014 [...] [place] | | | | | | [address] | | | | | | [phone] | | | | | | | | +--------+---------+ + + + documented as of this encounter Visit Diagnoses + + | Diagnosis | + + | ESRD (end stage renal disease) (HCC) - Primary End stage renal disease | + + documented in this encounter
--- OUTSIDE RECORDS SUMMARY | ~2019-03-12 | XMS | Encounter Summary ---
Demographics + + + | Address | [address] | | | [place] [address] | + + + | Home Phone [...] | | | | | [place] [address] | | + + + + + | Thania Mallory | ECON | [address] | | | | | [place] [address] | | + + + + + | Deidra Weldon | ECON | [address] | | | | | [place] | | | | | [address] | | + + + + + Care Team Providers + +------+ + | Care Cane Piler Name | Role | Phone | + +------+ + PCP | Unavailable | + +------+ + Encounter Details +--------+ + + + + | Date | Type | Department | Care Team | Description | +--------+ + + + + | 04/09/ | Abstract | Pediatric | Sudhakar Joy | | | 2013 | | Nephrology at | MD Emanuel [address] | | | | | [place] | Elias Elizondo | | | | | [facility] | [place], [place] | | | | | [address] | [address] | | | | | Mailcode: DCH7 | [phone] | | | | | [place] | | | | | | [place], [place] | | | | | | [address] | | | | | | [phone] | | | +--------+ + + + [...] Denise | | | | | | [place], [place] | | | | | | [address] | | | | | | [phone] | | | | | | | | +--------+ + + + + documented as of this encounter Visit Diagnoses Not on filedocumented in this encounter"
--- OUTSIDE RECORDS SUMMARY | ~2019-03-12 | XMS | Encounter Summary ---
Demographics + + + | Address | [address] | | | [place] [address] | + + + | Home Phone [...] | Author | [facility] | | | and [place]ana | + + + | Organization | [facility] [...] Team Providers + +------+ + | Care Safety Advisor Name | Role | Phone | [...] NEPHROLOGY [address] | M, DO [address] | | | | | [address] | [place], [address] | | | | | [place], [place] | [place], [place] | | | | | [address] | [address] | | | | | [phone] | | | +--------+ + + + [...] documented in this encounter Progress Notes Marilyn Palubmo - 08/31/2015 10:30 AM PDTHemodialysis progress note e-faxed to Jamil Levi in [facility], Sudhakar Joy MD at [facility], Doyle Diaz MD (fx: [phone]) on 08/31/15.Electronically signed by Marilyn Palumbo at [...] with an AVF venous stenosis, and 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 Apparently [...] uated for a possible renal allograft at [facility].honestly, given her recent suboptimal compliance with fluid gains, hyperphosphatemia, and missed treatments I think anitha quarles would be at high risk for graft loss from noncompliance? Will attempt to get in touch wit h Dr. Joy, Pediatric Nephrology. 4. Will recheck her in one week. I appreciate Dr. Diaz's help with her recent fistulogram . CC: [place] Fina Joy M.D., Pediatric Nephrology, [facility] Doyle Diaz M.D., IR, [facility] documented in thi s encounter Plan of Treatment +--------+---------+ + + + | Date | Type | Specialty | Care Team | Description | +--------+---------+ + + + | 04/18/ | Office | Pulmonology | Denny [place] | | | 2020 | Visit | | Deny Briggs MD [address] | | | | | | [address] [place] | | | | | | [place] [address] | | | | | | [phone] | | | | | | | | +--------+---------+ + + + documented as of this encounter Visit Diagnoses + + | Diagnosis | + + | ESRD (end stage renal disease) (HCC) - Primary End stage renal disease | + + documented in this encounter"
--- OUTSIDE RECORDS SUMMARY | ~2019-03-12 | XMS | Encounter Summary ---
Demographics + + + | Address | [address] | | | [place] [address] | + + + | Home Phone [...] + | Author | [facility] | | | and [place] | + + + | Organization | [facility] | | [...] Team Providers + +------+ + | Care Spinner Hand Name | Role | Phone | + +------+ + PCP | Unavailable | + +------+ + Encounter Details +--------+ + + + + | Date | Type | Department | Care Team | Description | +--------+ + + + + | 07/31/ | Hospital | [facility] | Conversion | ESRD (end stage | | 2015 | Encounter | [facility] | Transaction, | renal disease) (HCC) | | | | [address] | Provider Unknown | | | | | [place], [place] | [phone] | | | | | [address] | | | | | | [phone] | Colten Hutchins MD | | | | | | [address] | | | | | | [place], [place] | | | | | | [address] | | | | | | | [...] 07/31/141620 Date of Service: 07/31/141619 Status: Signed Street And Building Decorator: Mervat Harden RN (Registered Nurse) Pt meets d/c criteria. Site c/d/i and soft. Mother providing transportation home. Mervat Harden RN onver arturo Transaction, Provider Unknown - 07/31/2014 3:52 PM PDT Progress Notes by Mervat Harden RN at 07/31/141551 Author: Mervat Harden RN Service: (none) Author Type: Registered Nurse Filed: 07/31/14 5564 Date of Service: 07/31/141551 Status: Signed Street And Building Decorator: Mervat Harden RN (Registered Nurse) Pt tolerated [...] [address] | | | | | | [place] [address] | | | | | | [phone] | | | | | | | [...] this | | | patient in the Network Project Manager holding area. I had a discussion with [...] met this patient | | in the Network Project Manager holding area. I had a discussion with [...]
--- OUTSIDE RECORDS SUMMARY | ~2019-03-12 | XMS | Encounter Summary ---
Demographics + + + | Address | [address] | | | [place] [address] | + + + | Home Phone [...] Author | [facility] | | | and Josephana | + + + | Organization | [facility] | | [...] Providers + +------+ + | Care Director Pharmacy Services Name | Role | Phone | + +------+ + | Jonathan Alonso MD | PCP | | + +------+ + Reason for Visit + + + | Reason | Comments | + + + | High Potassium | | + + + | Hypertension | | + + + Encounter Details +--------+ + + + + | Date | Type | Department | Care Team | Description | +--------+ + + + + | 01/07/ | Hospital | [facility] | Florian Nelson, | Hyperkalemia | | 2019 - | Encounter | [facility] | [address] | (Primary Dx); ESRD | | | | CARE FLOOR [address] | [place] [address] | needing dialysis | | 01/10/ | | [address] | [phone] | ([facility]); Acute | | 2019 | | [place], [place] | | respiratory | | | | [phone] | Herccristiana, Megan, DO | distress; Recurrent | | | | [phone] | [address] | right pleural | | | | | [place] [address] | effusion; Anemia in | | | | | [phone] | ESRD (end-stage | | | | | | renal disease) | | | | | Nicholas Sutton MD | ([facility]); At high risk | | | | | [address] | for electrolyte | | | | | [place] [address] | imbalance; Chronic | | | | | [phone] | 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 | | | | | Piedad Mosquera MD | failure ([facility]); | | | | | [address] | Dilated | | | | | [place] [address] | cardiomyopathy | | | | | [phone] | ([facility]); ESRD on | | | | | | hemodialysis ([facility]); | | | | | Paty Kline DO | Noncompliance; | | | | | [address] | Uncontrolled | | | | | [place] [address] | hypertension | | | | | [phone] | | | | | | | [...] + + + | Blood Pressure | 157/86 | 01/10/2019 3:37 PM | | | | | PST | | + + + + + | Pulse | 76 | 01/10/2019 3:37 PM | | | | | PST | | + + + + + | Temperature | 36.7 C (98.1 F) | 01/10/2019 3:37 PM | | | | | PST | | + + + + + | Respiratory Rate | 18 | 01/10/2019 3:37 PM | | | | | PST | | + + + + + | Oxygen Saturation | 97% | 01/10/2019 3:37 PM | | | | | PST | | + + + + + | Inhaled Oxygen | - | - | | | Concentration | | | | + + + + + | Weight | 72.6 kg (160 lb 0.9 | 01/09/2019 2:00 PM | | | | oz) | PST | | + + + + + | Height | 167.6 cm (5' 6") | 01/07/2019 5:22 AM | | | | | PST | | + + + + + | Body Mass Index | 25.83 | 01/07/2019 5:22 AM | | | | | PST [...] documented as of this encounter Discharge Summaries Paty Kline DO - 01/10/2019 2:43 PM PSTFormatting of this note might be different fr om the original. ADULT HOSPITALIST DISCHARGE SUMMARY Patient: Dara Weldon : 1995 Date of Admission: 01/07/2019 Date of Discharge: 01/10/2019 Treatment Team: Cliff Duarte MD Discharging Provider: Paty Kline DO Discharge Diagnoses: Principal Problem: Acute respiratory distress Active Problems: ESRD on hemodialysis Noncompliance Uncontrolled hypertension Recurrent right pleural effusion Anemia in ESRD (end-stage renal disease) Chronic combined systolic and diastolic heart failure At high risk for electrolyte imbalance Dilated cardiomyopathy Pleural effusion, not elsewhere classified Procedures Performed: * No surgery found * Chief Complaint: Chief Complaint Patient presents with High Potassium Hypertension Hospital Course: Dara Weldon is a 23 y.o. female who was admitted on 01/07/2019 with acute hypoxic r espiratory failure secondary to volume overload in the setting of missed hemodialysis. Ms. Weldon is a 23 y.o.femalewith significant past medical history of end-stage renal disease on HD MWF who follows with Dr. Anguiano, Henoch-Schonlein Purpura, recurrent bilateral pleural effusions requiring periodic thoracentesis, combined systolic and diastolic congest eboni heart failure with ejection fraction of 20 to 25% per echocardiogram of May 2018. Repe at echo 12/12/18 shows improved EF to 40%. She presented with volume overload after missing multiple hemodialysis sessions. She underw ent thoracentesis in the ED with 1500 cc fluid removal in ED with improvement in respiratory status. She underwent HD on 01/08 and 01/09 with 6L total fluid removal and improvement in re spiratory status. Her metoprolol was changed to carvedilol prior to discharge. Given signifi cant anxiety prior to HD she was discharged home on a trial of clonazepam 0.25 mg to take be fore hemodialysis. Discussed her friend's in depth and how her depression is contributing to her medical conditions. Patient is seeking counseling which is a good step forward. Friend at bedside griffin cardenas encouragement. She is taking citalopram. Discharge Exam and Data: Vital Signs: BP (!) 170/100 | Pulse 90 | Temp 36.7 C (98.1 F) (Oral) | Resp 20 | Ht 1.676 m (5' 6") | Wt 72.6 kg (160 lb 0.9 oz) | LMP 06/08/2017 (Exact Date) | SpO2 (!) 87% Comment: s/ p 4 laps around unit | ? No | BMI 25.83 kg/m General: Alert, no distress, more upbeat today Eyes:PERRL, no scleral icterus, no dischage. Facial edema improved. ENT:External ears normal, Nose normal, oropharynx moist no exudates Neck:Supple, no thyromegaly Cardiovascular:Regular rate and rhythm, no murmurs, no rub Respiratory: No respiratory distress, crackles bilaterally Abdomen: Soft, non-tender, non-distended, active bowel sounds Back: No tenderness or deformity Skin:Warm and dry, no rashes Extremities:No edema, no joint deformities Neuro: No gross motor/sensory deficit. CN grossly intact. Alert and oriented to person, p lace, time. Recent Labs Recent Labs Lab 01/10/19 0703 WBC 3.97 HGB 10.0* HCT 29.8* PLT 136* Recent Labs Lab 01/10/19 0703 NA 142 K 5.2* CL 103 CO2 33* BUN 15 CALCIUM 9.7 No results for input(s): INR in the last 168 hours. Recent Radiology Results CXR 12/09/18: Stable right sided opacity consistent with a large layering pleural effusion and compressive atelectasis. No discharge procedures on file. Outstanding Issues: None Discharge Information: Follow up: No follow-up provider specified. Discharge Medications New Medications Details carvedilol 6.25 mg tablet Take 1 tablet by mouth 2 times daily. aka: COREG citalopram 20 mg tablet Take 1 tablet by mouth Daily. aka: celeXA Start: 01/11/2019 clonazePAM 0.5 mg tablet Take 0.5 tablets by mouth Daily as needed for Anxiety (on hemodialysis days). aka: KLONOPIN predniSONE 20 mg tablet Take 1 tablet by mouth Daily for 5 days. aka: DELTASONE Changed Medications Details doxercalciferol 2 mcg/mL injection [...] 1 tablet by mouth Daily. aka: COZAAR ondansetron 4 mg tablet Take 4 mg [...] the vein Once a week. Discontinued Medications metoprolol succinate 50 mg 24 hr tablet aka: TOPROL-XL Disposition: home Condition: Fair Code Status: Full Code Discharge took 45 minutes, to include final examination, discussion of admission, and prepa ration of prescriptions, instructions for on-going care, follow-up and documentation of disc harge summary. Paty Kline DO 14:58 documented in this e ncounter Discharge Instructions Instructions Paty Kline DO - 01/10/2019Medication changes: Please STOP taking metoprolol. You will be taking carvedilol instead (this medication is be tter with hemodialysis). STOP taking Buspar, this medication is contraindication in dialysis. You can trial clonazep am. Please take 0.25 mg on days you go to hemodialysis. If this medication works well discus s getting a refill from your regular physician or colorer. We are always happy to be a part of your medical care, thank you for letting us take care o f you during your hospital stay. We are all rooting for you. - Dr. Kline Clonazepam tablets Brand Names: Ceberclon, Klonopin What is this medicine? CLONAZEPAM (kloe NA ze alfonzo) is a benzodiazepine. It is used to treat certain types of seizu res. It is also used to treat panic disorder. How should I use this medicine? Take this medicine by mouth with a glass of water. Follow the directions on the prescriptio n label. If it upsets your stomach, take it with food or milk. Take your medicine at regular intervals. Do not take it more often than directed. Do not stop taking or change the dose e xcept on the advice of your doctor or health palliative care nurse practitioner. A special MedGuide will be given to you by the pharmacist with each prescription and refill . Be sure to read this information carefully each time. Talk to your assembler wet wash regarding the use of this medicine in children. Special care may be needed. What side effects may I notice from receiving this medicine? Side effects that you should report to your doctor or health palliative care nurse practitioner as soon as p ossible: allergic reactions like skin rash, itching or hives, swelling of the face, lips, or tong ue breathing problems confusion loss of balance or coordination signs and symptoms of low blood pressure like dizziness; feeling faint or lightheaded, f alls; unusually weak or tired suicidal thoughts or mood changes Side effects that usually do not require medical attention (report to your doctor or health palliative care nurse practitioner if they continue or are bothersome): dizziness headache tiredness upset stomach What may interact with this medicine? Do not take this medication with any of the following medicines: narcotic medicines for cough sodium oxybate This medicine may also interact with the following medications: alcohol antihistamines for allergy, cough and cold antiviral medicines for HIV or AIDS certain medicines for anxiety or sleep certain medicines for depression, like amitriptyline, fluoxetine, sertraline certain medicines for fungal infections like ketoconazole and itraconazole certain medicines for seizures like carbamazepine, phenobarbital, phenytoin, primidone general anesthetics like halothane, isoflurane, methoxyflurane, propofol local anesthetics like lidocaine, pramoxine, tetracaine medicines that relax muscles for surgery narcotic medicines for pain phenothiazines like chlorpromazine, mesoridazine, prochlorperazine, thioridazine What if I miss a dose? If you miss a dose, take it as soon as you can. If it is almost time for your next dose, ta ke only that dose. Do not take double or extra doses. Where should I keep my medicine? Keep out of the reach of children. This medicine can be abused. Keep your medicine in a saf e place to protect it from theft. Do not share this medicine with anyone. Selling or giving away this medicine is dangerous and against the law. This medicine may cause accidental overdose and if taken by other adults, children, o r pets. Mix any unused medicine with a substance like cat litter or coffee grounds. Then thr ow the medicine away in a sealed container like a sealed bag or a coffee can with a lid. Do not use the medicine after the expiration date. Store at room temperature between 15 and 30 degrees C (59 and 86 degrees F). Protect from l ight. Keep container tightly closed What should I tell my health care provider before I take this medicine? They need to know if you have any of these conditions: an alcohol or drug abuse problem bipolar disorder, depression, psychosis or other mental health condition glaucoma kidney or liver disease lung or breathing disease myasthenia gravis Parkinson's disease porphyria seizures or a history of seizures suicidal thoughts an unusual or allergic reaction to clonazepam, other benzodiazepines, foods, dyes, or pr eservatives or trying to get breast-feeding What should I watch for while using this medicine? Tell your doctor or health palliative care nurse practitioner if your symptoms do not start to get better or if they get worse. Do not stop taking except on your doctor's advice. You may develop a severe reaction. Your doctor will tell you how much medicine to take. You may get drowsy or dizzy. Do not drive, use machinery, or do anything that needs mental alertness until you know how this medicine affects you. To reduce the risk of dizzy and aidan ting spells, do not stand or sit up quickly, especially if you are an older patient. Alcohol may increase dizziness and drowsiness. Avoid alcoholic drinks. If you are taking another medicine that also causes drowsiness, you may have more side effe cts. Give your health care provider a list of all medicines you use. Your doctor will tell y ou how much medicine to take. Do not take more medicine than directed. Call emergency for he lp if you have problems breathing or unusual sleepiness. The use of this medicine may increase the chance of suicidal thoughts or actions. Pay speci al attention to how you are responding while on this medicine. Any worsening of mood, or tho ughts of suicide or dying should be reported to your health palliative care nurse practitioner right away. NOTE:This sheet is a summary. It may not cover all possible information. If you have questi ons about this medicine, talk to your doctor, pharmacist, or health care provider. Copyright 2019 [employer] documented in this encounter Medications at Time [...] | | | | | renal disease) ([facility]) | protocol | | | | | [...] 1 tablet by | | 0 | // | | | (PHENERGAN) 25 mg | [...] + + + +---------+ + + | predniSONE | Take 1 tablet by | 5 | 0 | 01/11/20 | | | (DELTASONE) 20 mg | mouth Daily for 5 | tablet | | 19 | 9 | | tablet | days. | | | | | + + + +---------+ + + | valsartan (DIOVAN) | Take 40 mg by mouth | | 1 | 01/02/20 | 11/19/201 | | 80 mg tablet | Daily. | | | 19 | 9 | + + + +---------+ + + documented as of this encounter Progress Notes Cliff Duarte MD - 01/10/2019 3:10 PM PST [id number]/[id number] Hospital Day: LOS: 3 days She was admitted with respiratory failure having missed last week Monday/monday. She is seen with her sister. She is good for the most part and is wanted to go home today. She denied having any wheeze today and does not have any shortness of breath at rest. There are no documented episodes of fever/nausea/vomiting/abdominal [...] Vitals as noted General appearance: Sitting up bed comfortably. Head/Neck: FROM, supple. Facial puffiness noted. JVD +. Lungs: Reduced air entry right lower infrascapular area with fair air entry on the left cortney e. No wheeze today. CV: RRR, no MRGs; normal carotid upstroke and amplitude without bruits. Systolic/diastolic murmur at the apex. No pericardial rub noted. Abdomen: Soft, non-tender; no masses or HSM Extremities: No peripheral edema or digital cyanosis Skin: no rash, lesions or ulcers Psych: Anxious Neurologic: Alert, awake and oriented to person, place and time. No asterixis. Dialysis access: Left UE AVF with no evidence of malfunction/inflammation. Vital Signs: BP (!) 170/100 | Pulse 90 | Temp 36.7 C (98.1 F) (Oral) | Resp 20 | Ht 1.676 m (5' 6") | Wt 72.6 kg (160 lb 0.9 oz) | LMP 06/08/2017 (Exact Date) | SpO2 (!) 87% Comment: s/ p 4 laps around unit | ? No | BMI 25.83 kg/m Data evaluation: Lab Results Component Value Date BUN 15 01/10/2019 EGFR 13 (L) 01/10/2019 NA 142 01/10/2019 K 5.2 (H) 01/10/2019 CL 103 01/10/2019 CO2 33 (H) 01/10/2019 PHOS 5.4 (H) 01/10/2019 MG 2.0 01/10/2019 HGB 10.0 (L) 01/10/2019 Lab Results Component Value Date ANIONGAP 11 01/10/2019 Lab Results Component Value Date CRP 8.6 [...] tricuspid regurgitation and se jaquan pulmonary hypertension. Echocardiogram from 12 December this year showed Moderately reduced left ventricular systol ic function with ejection fraction of 40%. Severe tricuspid regurgitation with severe pulmonary hypertension Assessment recommendations and plan: 1. Hypervolemia with congestive heart failure 2. Suboptimally controlled hypertension (Stage 2) 3. End-stage renal disease on hemodialysis 4. Nonadherence to dialysis prescription 5. IAG metabolic acidosis 6. Recurrent right pleural effusion 7. Anemia, chronic renal failure She has oliguric ESRD as per PMH who was admitted with recurrent hypervoelmia/pleural effus ion with non adherence to dialysis prescription/dietary salt/fluid non adherence. Hypervolemia has improved with effective dialysis. Chest x-ray from yesterday did not show any evidence of hypervolemia although it did show persistent right sided laying effusion an d compressive atelectasis. Hyperkalemia stemmed from high dietary intake and has resolved. ESRD is severe and established. Access is working OK. She may be discharged today on a steroid pulse. I discussed with her importance of keeping her dialysis appointment tomorrow and in the future. I discussed with her the concept of [...] Plan of care was discussed with . Cliff Duarte MD 01/10/2019 Portions of my previous notes have been carried over for continuity of chart review/care. She was seen earlier in the day and charting was completed later after rounds. Dictation software, [employer], was used which may contain error for [...] including but not limi wilmer to . citalopram 20 mg Oral Daily clopidogrel 75 mg Oral Daily heparin 5,000 Units Subcutaneous 2 times per day lidocaine 1 patch Transdermal Daily losartan 25 mg Oral Daily metoprolol succinate 50 mg Oral Daily pantoprazole 40 mg Oral QAM AC sevelamer carbonate 1,600 mg Oral TID WC dextrose 10% upper, Nereida Douglas RN - 01/09/2019 6:56 PM PSTPt has not had any further episodes of chest pain. Denies any SOB. Zo cory and prn oxy given x2 this shift. Vital signs stable. End of shift chart check complete. Nereida Coburn RN 01/09/19 18:57 upper , Nereida Cole RN - 01/09/2019 1:30 PM [id number] Pt c/o chest pain rated 9/10, described as "tig ht" and "pressure" in the substernal area and L side of chest that onset while laying down d uring dialysis. Pt in NSR with stable VS. Dr. Kline notified. Per MD, no new orders and no EKG at this time. 1300- Rechecked pt, pt states pain still 9/10 and unchanged. Denies the pain being precipit ated by anxiety. Declines lidocaine patch for pain. Requests IV tylenol or something to help alleviate, however, pt not within time parameters for next pain medicine. 1320- Notified Dr. Kline about continued chest pain and pt's request for IV tylenol. No p rn orders at this time, however EKG ordered. earth science technician called and en route. 1340- EKG shows NSR, no ischemic changes noted. Pt reports pain is still present, however p t resting with eyes closed in bed, appears comfortable. Will continue to monitor. Remains on dialysis with RN at bedside checking VS q15m. Nereida Coburn RN 01/09/19 13:46 Cliff Cervantes MD - 01/09/2019 12:05 PM PSTFormatting of this note might be different from the o rian. [id number]/4454-01 Hospital Day: LOS: 2 days She was admitted with respiratory failure having missed last week Monday/monday. 01/07/19 she had HD with 2.5 L Uf. 01/08/19 she had HD with 3 L UF. She is seen in HD. No complications during HD identified. She is seen with her sister. She has been wheezing today but has no cough/chest pain/nausea. PMH, PSH, Social history reviewed in chart. [...] Vitals as noted General appearance: Sitting up bed with some degree of shortness of breath at rest. Head/Neck: FROM, supple. Facial puffiness noted. JVD +. Lungs: Reduced air entry right lower infrascapular area with fair air entry on the left cortney e. Wheeze +. CV: RRR, no MRGs; normal carotid upstroke and amplitude without bruits. Systolic/diastolic murmur at the apex. No pericardial rub noted. Abdomen: Soft, non-tender; no masses or HSM Extremities: No peripheral edema or digital cyanosis Skin: no rash, lesions or ulcers Psych: Anxious Neurologic: Alert, awake and oriented to person, place and time. No asterixis. Dialysis access: Left UE AVF with no evidence of malfunction/inflammation. Vital Signs: BP (!) 154/93 | Pulse 89 | Temp 36.4 C (97.6 F) (Oral) | Resp 18 | Ht 1.676 m (5' 6 ") | Wt 74.2 kg (163 lb 9.3 oz) | LMP 06/08/2017 (Exact Date) | SpO2 97% | ? No | BMI 26.40 kg/m Data evaluation: Lab Results Component Value Date BUN 25 01/09/2019 EGFR 9 (L) 01/09/2019 NA 144 01/09/2019 K 4.9 01/09/2019 CL 106 01/09/2019 CO2 30 01/09/2019 PHOS 8.9 (H) 12/10/2018 MG 2.2 12/10/2018 HGB 9.8 (L) 01/09/2019 Lab Results Component Value Date ANIONGAP 13 01/09/2019 Lab Results Component Value Date CRP 8.6 [...] tricuspid regurgitation and se jaquan pulmonary hypertension. Echocardiogram from 12 December this year showed Moderately reduced left ventricular systol ic function with ejection fraction of 40%. Severe tricuspid regurgitation with severe pulmonary hypertension Assessment recommendations and plan: 1. Hypervolemia with congestive heart failure 2. Suboptimally controlled hypertension (Stage 2) 3. End-stage renal disease on hemodialysis 4. Nonadherence to dialysis prescription 5. IAG metabolic acidosis 6. Recurrent right pleural effusion 7. Anemia, chronic renal failure She has oliguric ESRD as per PMH who was admitted with recurrent hypervoelmia/pleural effus ion with non adherence to dialysis prescription/dietary salt/fluid non adherence. Hypervolemia has improved with effective dialysis. Hyperkalemia stemmed from high dietary intake and has resolved. ESRD is severe and established. Access is working OK. Plan To Dialyze today per usual prescription using left UE AVF. Check CXR today. Hold HD tomorrow. UF as tolerated (typically over 2 L UF she begins to cramp). To use ESTEFANY/Fe use to keep Hb [...] PO4). Plan of care was discussed with . Cliff Duarte MD 01/09/2019 Portions of my previous notes have been carried over for continuity of chart review/care. She was seen earlier in the day and charting was completed later after rounds. Dictation software, [employer], was used which may contain error for [...] to . clopidogrel 75 mg Oral Daily heparin 5,000 Units Subcutaneous 2 times per day losartan 25 mg Oral Daily metoprolol succinate 50 mg Oral Daily pantoprazole 40 mg Oral QAM AC sevelamer carbonate 1,600 mg Oral TID WC dextrose 10% heparin (dialysis) 500 Units/hr (01/09/19 0949) aty Kline DO - 01/09/2019 8:20 AM PST [facility] Hospitalist Progress Note Hospital Day: 2 HPI SUMMARY: Ms. Weldon is a 23 y.o.femalewith significant past medical history of end-stage renal disease on hemodialysis every Monday and Monday who follows with Dr. Anguiano. Her o ther problems are Henoch-Schonlein Purpura, recurrent bilateral pleural effusions requiring pediatric thoracentesis, combined systolic and diastolic congestive heart failure with eject ion fraction of 20 to 25% per echocardiogram of May 2018. Repeat echo 12/12/18 shows improv ed EF to 40%. She presented with volume overload after missing multiple hemodialysis sessions. She underw ent thoracentesis in the ED with 1500 cc fluid removal. SUBJECTIVE Events Overnight: Underwent HD yesterday and today with 3L removed each session. Complains of significant anx iety and recurrent pleuritic pain and chest pain. Discussed how narcotics are highly addict eboni and not a good idea given her age and chronicity of her pain. Discussed her friend's dave th in depth and her depression. Patient is seeking counseling which is a good step forward. Friend at bedside provides encouragement. Vitals are stable. Saturating high 90s on 3L NC. OBJECTIVE Vital Signs: Blood pressure 155/77, pulse 87, temperature 36.7 C (98.1 F), temperature source Oral, resp. rate 18, height 1.676 m (5' 6"), weight 71.8 kg (158 lb 4.6 oz), last menstrual period 06/08/2017, SpO2 98 %, not currently . General: Alert, no distress, friend at bedside Eyes: PERRL, no scleral icterus, no dischage ENT: External ears normal, Nose normal, oropharynx moist no exudates Neck: Supple, no thyromegaly Cardiovascular: Regular rate and rhythm, no murmurs, no rub Respiratory: No respiratory distress, crackles bilaterally Abdomen: Soft, non-tender, non-distended, active bowel sounds Back: No tenderness or deformity Skin: Warm and dry, no rashes Extremities: No edema, no joint deformities Neuro: No gross motor/sensory deficit. CN grossly intact. Alert and oriented to person, pl [place], time. DATA No results for input(s): INR in the last 168 hours. Recent Labs Lab 01/08/19 0451 01/07/19 0140 WBC 4.54 10.84 HGB 10.0* 9.9* HCT 30.5* 29.5* PLT 144* 240 NA 136 144 K 6.2* 5.9* CL 102 108 CO2 25 21* BUN 56* 106* EGFR 6* 3* CALCIUM 9.3 10.3 ANIONGAP 15 21* AST 46* 51* ALT 56 38 No results for input(s): TROPONINT, CKMB in the last 168 hours. Invalid input(s): CKTOTAL, TROPONINI, CKMBINDEX, PCOTNI No results for input(s): CLARITYU, LEUKOCYTESUR, UROBILINOGEN, PHUR, BLOODU, KETONES, BILIR UBINUR, GLUCOSEU, RBCU, BACTERIA, COMU in the last 168 hours. Invalid input(s): UCOL, SPECGRAV, NITRITE, UPRO PROBLEM LIST Principal Problem: Acute respiratory distress Active Problems: ESRD on hemodialysis Hyperkalemia Noncompliance Hypoglycemia Uncontrolled hypertension Recurrent right pleural effusion Anemia in ESRD (end-stage renal disease) Chronic combined systolic and diastolic heart failure At high risk for electrolyte imbalance Dilated cardiomyopathy Pleural effusion, not elsewhere classified IMPRESSION/PLAN: Acute hypoxic respiratory failure, improving -Multifactorial secondary to right pleural effusion, noncompliant with hemodialysis, asthma and noncompliance with diet -Oxygenas needed -Right sided Thoracentesis in ED with Dr. Nelson with 1500 cc fluid removed on , p ossible apical pneumo on cxr not seen on CT or bedside US - HD for fluid removal Hyperkalemia: -Treated in the emergency room at [facility] that he had, potassium now wnl -Secondary to noncompliance with diet and hemodialysis -Dr. Duarte following, appreciate assistance Uncontrolled hypertension: -Due to fluid overload, anuria, noncompliant with hemodialysis and medications -Resume home medications -Labetalol ordered IV -Hemodialysis Recurrent right pleural effusion: -Thoracentesisper ED physician with removal of 1500 cc fluid -Last cytologyon 05/28/18was negative for malignant cells ESRD on hemodialysis: -Secondary toHSPnephritis on hemodialysis Monday and Monday -Missed HD for 5 days -HD today and possibly Monday Noncompliance: -Stronglyadvised on compliance. Had extensive discussion regarding friend's and her issues with depression. She is seeking counseling. She declined telepsych consultation. Anemia in ESRD (end-stage renal disease): -No need of transfusion at this time -Epogen per colorer GI and DVT prophylaxis Paty Kline DO 01/09/2019 Cliff Corcoran MD - 01/08/2019 2:35 PM PST [id number] Hospital Day: LOS: 1 day She was seen in HD. She remains short of breath and has chest pain/nausea/anxiety. PMH, PSH, Social history reviewed in chart. [...] noted General appearance: Lying in bed with shortness of breath at [...] no rash, lesions or ulcers Psych: Anxious Neurologic: Alert, awake and oriented to person, place and time. No asterixis. Dialysis access: Left UE AVF with no evidence of malfunction/inflammation. Vital Signs: BP 182/88 | Pulse 86 | Temp 36.6 C (97.9 F) | Resp 18 | Ht 1.676 m (5' 6") | Wt 73 .8 kg (162 lb 11.2 oz) | LMP 06/08/2017 (Exact Date) | SpO2 98% | ? No | BM I 26.26 kg/m Data evaluation: Lab Results Component Value Date BUN 56 (H) 01/08/2019 EGFR 6 (L) 01/08/2019 NA 136 01/08/2019 K 6.2 (H) 01/08/2019 CL 102 01/08/2019 CO2 25 01/08/2019 PHOS 8.9 (H) 12/10/2018 MG 2.2 12/10/2018 HGB 10.0 (L) 01/08/2019 Lab Results Component Value Date ANIONGAP 15 01/08/2019 Lab Results Component Value Date CRP 8.6 [...] tricuspid regurgitation and se jaquan pulmonary hypertension. Echocardiogram from 12 December this year showed Moderately reduced left ventricular systol ic function with ejection fraction of 40%. Severe tricuspid regurgitation with severe pulmonary hypertension Assessment recommendations and plan: 1. Hypervolemia with congestive heart failure 2. Uncontrolled hypertension (Stage 2) 3. End-stage renal disease on hemodialysis 4. Hyperkalemia 5. Nonadherence to dialysis prescription 6. IAG metabolic acidosis 7. Recurrent right pleural effusion 8. Anemia, chronic renal failure Dara Weldon is a 23 y.o. woman with oliguric ESRD as per PMH who is admitted with recurrent hypervoelmia/pleural effusion with non adherence to dialysis prescription/dietary salt/fluid non adherence. Hyperkalemia stems from high dietary intake. ESRD is severe and established. Access is working OK. Plan To Dialyze today per usual prescription using left UE AVF. Plan for repeat UF tomorrow and then possibly day after tomorrow. UF as tolerated (typically over 2 L UF she begins to cramp). To use ESTEFANY/Fe use to keep Hb [...] PO4). Plan of care was discussed with . Cliff Duarte MD 01/08/2019 Portions of my previous notes have been carried over for continuity of chart review/care. She was seen earlier in the day and charting was completed later after rounds. Dictation software, [employer], was used which may contain error for [...] 10,000 Units Intravenous With each dialysis heparin 1,500-6,000 Units Intracatheter After each dialysis heparin 5,000 Units Subcutaneous 2 times per day losartan 25 mg Oral Daily metoprolol succinate 50 mg Oral Daily pantoprazole 40 mg Oral QAM AC sevelamer carbonate 1,600 mg Oral TID WC dextrose 10% heparin (dialysis) 500 Units/hr (01/08/19 0934) pencer, DO Paty - 01/08/2019 7:50 AM PST [facility] Adult Hospitalist Progress Note Hospital Day: 1 HPI SUMMARY: Ms. Weldon is a 23 y.o.femalewith significant past medical history of end-stage renal disease on hemodialysis every Monday and Monday who follows with Dr. Anguiano. Her o ther problems are Henoch-Schonlein Purpura, recurrent bilateral pleural effusions requiring pediatric thoracentesis, combined systolic and diastolic congestive heart failure with eject ion fraction of 20 to 25% per echocardiogram of May 2018. SUBJECTIVE Events Overnight: Underwent HD yesterday with improvement in volume status, potassium remains elevated. She i s undergoing HD currently. Plan to remove 3L if possible. Complains of significant anxiety. States she wants to stop dialysis due to symptoms. Per nursing has been sleeping all morning while on HD. After discussion she is willing to continue. Stressed outpatient compliance. OBJECTIVE Vital Signs: Blood pressure 142/83, pulse 68, temperature 36.5 C (97.7 F), temperature source Oral, resp. rate 18, height 1.676 m (5' 6"), weight 77 kg (169 lb 11.2 oz), last menstrual period 06/08/2017, SpO2 91 %, not currently . General: Sleeping. Wakes to voice, then appears anxious. Eyes: PERRL, no scleral icterus, no dischage [...] and oriented to person, pl [place], time. DATA No results for input(s): INR in the last 168 hours. Recent Labs Lab 01/08/19 0451 01/07/19 0140 WBC 4.54 10.84 HGB 10.0* 9.9* HCT 30.5* 29.5* PLT 144* 240 NA 136 144 K 6.2* 5.9* CL 102 108 CO2 25 21* BUN 56* 106* EGFR 6* 3* CALCIUM 9.3 10.3 ANIONGAP 15 21* AST 46* 51* ALT 56 38 No results for input(s): TROPONINT, CKMB in the last 168 hours. Invalid input(s): CKTOTAL, TROPONINI, CKMBINDEX, PCOTNI No results for input(s): CLARITYU, LEUKOCYTESUR, UROBILINOGEN, PHUR, BLOODU, KETONES, BILIR UBINUR, GLUCOSEU, RBCU, BACTERIA, COMU in the last 168 hours. Invalid input(s): UCOL, SPECGRAV, NITRITE, UPRO PROBLEM LIST Principal Problem: Acute respiratory distress Active Problems: ESRD on hemodialysis Hyperkalemia Noncompliance Hypoglycemia Uncontrolled hypertension Recurrent right pleural effusion Anemia in ESRD (end-stage renal disease) Chronic combined systolic and diastolic heart failure At high risk for electrolyte imbalance Dilated cardiomyopathy Pleural effusion, not elsewhere classified IMPRESSION/PLAN: Acute respiratory distress, improving -Multifactorial secondary to right pleural effusion, noncompliant with hemodialysis, asthma and noncompliance with diet -Oxygenas needed -Right sided Thoracentesis in ED with Dr. Nelson with 1500 cc fluid removed on , p ossible apical pneumo on cxr not seen on CT or bedside US Hyperkalemia: -Treated in the emergency room at [facility] that he had, potassium now 5.8 -Secondary to noncompliance with diet and hemodialysis -Dr. Duarte following, appreciate assistance Uncontrolled hypertension: -Due to fluid overload, anuria, noncompliant with hemodialysis and medications -Resume home medications -Labetalol ordered IV -Hemodialysis Recurrent right pleural effusion: -Thoracentesisper ED physician with removal of 1500 cc fluid -Last cytologyon 05/28/18was negative for malignant cells ESRD on hemodialysis: -Secondary toHSPnephritis on hemodialysis Monday and Monday -Missed HD for 5 days Noncompliance: -Stronglyadvised on compliance Anemia in ESRD (end-stage renal disease): -No need of transfusion at this time -Epogen per colorer Hypoglycemia: -Likely secondary to insulin given for her hyperkalemia and decrease PO intake -Hypoglycemic protocol GI and DVT prophylaxis Paty Kline DO 01/08/2019 Piedad Vega MD - 01/07/2019 7:14 AM PST [facility] Service: Hospitalist Progress Note Hospital Day: LOS: 0 days SUBJECTIVE Patient Summary: From HPI Dr. Martínez 01/07/19 The patient is a 23 y.o. female with significant past medical history of HSP nephritis, rig ht pleural effusions recurrent, thoracentesis, bacteremia, clotted hemodialysis catheter, no ncompliance, asthma who presents transferred from [facility] with hyperkalemia, hyperte nsion noncompliant with hemodialysis, patient in need of hemodialysis. Patient complains of shortness of breath at rest. Symptoms include dyspnea on exertion, dyspnea when laying down , sputum production, tightness in chest and wheezing. Symptoms began 2 days ago, gradually w orsening since that time. Patient denies constant cough, cough after eating, drainage from nose and unresolving pneumonia. Associated symptoms include none. Patient has not had recent travel. Weight has increased 20 pounds over last 2 days. Appetite has been unaffected. Sy mptoms are exacerbated by any exercise. Symptoms are alleviated by nothing and oxygen. Went to HD on Monday. HD M/W/. Patient missed HD because she has a lot of going on in her life. Patient was treated for hyperkalemia in [facility] as her potassium was 6.8. The data from [facility] was a chest x-ray which shows motion of the right hemithorax opacified Noncompliant with hemodialysis, patient had been admitted on monthly basis due to noncompli ant with hemodialysis, right-sided heart failure, recurrent right effusion and ? Bacteremia vs contaminant staph negative cocci 01/07/19 Admitted today, per hospitalist. Chest xray showed possible pneumothorax after tho racentesis completed in the ED. ED physician, Dr. Nelson has completed an US at bedside wit h no pneumothorax noted. Will confirm with CT scan/chest after dialysis. Currently, patient does not appear SOB, she is comfortable and recieving dialysis. Scheduled Medications clopidogrel 75 mg Oral Daily epoetin jenna-epbx 10,000 Units Intravenous With each dialysis heparin 5,000 Units Subcutaneous 2 times per day losartan 25 mg Oral Daily metoprolol succinate 50 mg Oral Daily pantoprazole 40 mg Oral QAM AC sevelamer carbonate 1,600 mg Oral TID WC PRN Medications albuterol-ipratropium, Hypoglycemia Management AND POCT Glucose AND dextrose AND* * dextrose 10%, labetalol, melatonin, ondansetron, oxyCODONE-acetaminophen OBJECTIVE Vital Signs: BP (!) 169/105 | Pulse 71 | Temp 36.1 C (97 F) (Temporal) | Resp 20 | Ht 1.676 m (5 ' 6") | Wt 78.3 kg (172 lb 11.2 oz) | LMP 06/08/2017 (Exact Date) | SpO2 95% | Breastfee ding? No | BMI 27.87 kg/m Patient Vitals for the past 24 hrs: BP Temp Temp src Pulse Resp SpO2 Height Weight 01/07/19521 1.676 m (5' 6") 78.3 kg (172 lb 11.2 oz) 01/07/19 05 (!) 169/105 Oral 71 20 95 % 01/07/19 0450 (!) 172/112 36.1 C (97 F) Temporal 78 20 95 % 01/07/19 0430 (!) 155/109 79 20 95 % 01/07/19 0356 (!) 156/95 80 93 % 01/07/19 0238 (!) 198/108 95 95 % 01/07/19 0221 (!) 195/106 91 20 97 % 01/07/19 0131 (!) 194/106 35.7 C (96.2 F) Oral 97 20 94 % First: 78.3 kg (01/07/19521)Last: 78.3 kg (01/07/19521)Difference: 0kg Weight change: Intake/Output Summary (Last 24 hours) at 01/07/2019 0714 Last data filed at 01/07/2019 0537 Gross per 24 hour Intake 50 ml Output Net 50 ml Body mass index is 27.87 kg/m. Physical Exam Constitutional: She appears well-developed and well-nourished. Psychiatric: Resting Nursing note and vitals reviewed. DATA Recent Labs 01/07/19 014 WBC 10.84 HGB 9.9* HCT 29.5* PLT 240 MCV 110.6* Recent Labs Lab 01/07/19139 NA 144 K 5.9* CL 108 CO2 21* ANIONGAP 21* BUN 106* CREA 13.71* CALCIUM 10.3 ALBUMIN 4.1 ALKPHOS 122* ALT 38 AST 51* Recent Labs 01/07/19139 GLU 55* No results for input(s): TROPONIN, BNP in the last 72 hours. No results for input(s): PROTIME, INR, PTT in the last 168 hours. No results for input(s): IRON, TIBC, PCTSAT, FERRITIN, TSH, [id number], FOLATE in the last 168 hours. No results for input(s): LACTATE, PROCALCITONI, CRP, ESR in the last 168 hours. No results for input(s): AMYLASE, LIPASE in the last 168 hours. No results for input(s): TRIG, CHOL, HDL, LDL in the last 168 hours. No results for input(s): AMMONIA in the last 168 hours. Recent Results (from the past 360 hour(s)) XR Chest AP Portable Narrative CHEST PORTABLE ONE VIEW CLINICAL INFORMATION: Post- thoracentesis. COMPARISON: XR CHEST AP PORTABLE (12/13/2018); US GUIDED THORACENTESIS WO CHEST TUBE (12/11/2018); XR CHEST AP PORTABLE (12/10/2018); FINDINGS: Upright AP portable chest 01/07/2019 at 0411 hours. Interval increased lucency at the right mid to lower lung zone, which may represent re-expanded lung after thoracentesis procedure, versus loculated anterior pneumothorax. There is a peripheral lucency at the right lateral lung apex, which may represent pneumothorax, slightly changed in appearance from yesterday's exam. Confluent opacity seen at the right lung base. Right diaphragm and right heart border completely obscured. The left lung is moderately well expanded, with indistinct central vasculature. No pneumothorax or large pleural effusion on the left side. Impression 1. Possible right pneumothorax, although appearance is atypical. Further evaluation could be done with decubitus views of the chest. 2. Confluent opacity right lung base, which may represent lobar atelectasis and/or consolidation and/or residual pleural effusion. Signed by: Eliza Layton Brian Sign Date/Time: 01/07/2019 4:41 AM Imaging: Imaging Reviewed. PROBLEM LIST Principal Problem: Acute respiratory distress Active Problems: ESRD on hemodialysis Hyperkalemia Noncompliance Hypoglycemia Uncontrolled hypertension Recurrent right pleural effusion Anemia in ESRD (end-stage renal disease) Resolved Problems: * No resolved hospital problems. * ASSESSMENT & PLAN Addendum Patient received Thoracentesis in the ED. Susequent chest xray showed possible pneumothorax , however, ED physician completed US at bedside with No pneumothorax noted. CT chest will be completed once patient has finished diaylysis to confirm. She remains stable, and is restin g in bed without SOB of discomfort. Per Hospitalist Dr. Martínez Acute respiratory distress: -Multifactorial secondary to right pleural effusion, noncompliant with hemodialysis, asthma and noncompliance with diet -Oxygen as needed -ED physician to perform thoracentesis -Hemodialysis -Encourage compliance Active Problems: Hyperkalemia: -Treated in the emergency room at [facility] that he had, potassium now 5.8 -Secondary to noncompliant with diet and hemodialysis -Case discussed with Dr. 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 Dr. Nelson aware, recommended a CT scan chest Dr Mosquera ordering the CT chest, patient stable on 4 liter, O2 needs has not increased sin ce admitted to the ER documented in this encou nter Plan of Treatment +--------+---------+ + + + | Date | Type | Specialty | Care Team | Description | +--------+---------+ + + + | 04/18/ | Office | Pulmonology | Denny Alexander | | | 2019 | Visit | | Deny Briggs MD [address] | | | | | [address] | | | | | | [place] [address] | | | | | | [phone] | | | | | | | [...] + + | PHOSPHORUS | Routin | 01/10/2019 | | Results for this | | | e | 7:03 AM | | procedure are in the | | | | PST | | results section. | + +--------+ + + + | MAGNESIUM | Routin | 01/10/2019 [...] + + | COMPREHENSIVE | STAT | 01/09/2019 [...] + + | COMPREHENSIVE | Routin | 01/08/2019 [...] + + | COMPREHENSIVE | STAT | 01/07/2019 | | Results for this | | METABOLIC PANEL | | 1:40 AM | | procedure are in the | | | | PST | | results section. | + +--------+ + + + | THORACENTESIS | Routin | 01/07/2019 | | Results for this | | | e | 1:36 AM | | procedure are in the | | | | PST | | results section. | + +--------+ + + + documented in this encounter Results POC Glucose (01/10/2019 11:54 AM PST) + + + + + + | Component | Value | Ref Range | Performed | Pathologist | | | | | At | Signature | + + + + + + | Glucose, | 124 (H)Comment: Testing | 65 - 99 mg/dL | [facility] | | | POC | performed at [facility];[address] | | LABORATORY | | | | [address];[place], [place] | | | | | | [address] | | | | + + + + + + + + | Specimen | + + | | + + + + + + + | Performing | Address | City/State/Zipcode | Phone Number | | Organization | | | | + + + + + | [facility] | [address] | [place] [address] | [phone] | + + + + + POC Glucose (01/10/2019 7:47 AM PST) + + + + + + | Component | Value | Ref Range | Performed | Pathologist | | | | | At | Signature | + + + + + + | Glucose, | 125 (H)Comment: Testing | 65 - 99 mg/dL | [facility] | | | POC | performed at [facility];[address] | | LABORATORY | | | | [address];[place] | | | | | | [address] | | | | + + + + + + + + | Specimen | + + | | + + + + + + + | Performing | Address | City/State/Zipcode | Phone Number | | Organization | | | | + + + + + | [facility] | [address] | [place] [address] | [phone] | + + + + + CBC no Differential (01/10/2019 7:03 AM PST) + + + + + + | Component | Value | Ref Range | Performed | Pathologist | | | | | At | Signature | + + + + + + | WBC | 3.97 | 3.80 - 11.00 | [facility] | | | | | K/uL | LABORATORY | | + + + + + + | RBC | 2.74 (L) | 3.70 - 5.10 | [facility] | | | | | M/uL | LABORATORY | | + + + + + + | Hemoglobin | 10.0 (L) | 11.3 - 15.5 | [facility] | | | | | g/dL | LABORATORY | | + + + + + + | Hematocrit | 29.8 (L) | 34.0 - 46.0 % | [facility] | | | | | | LABORATORY | | + + + + + + | MCV | 108.7 (H) | 80.0 - 100.0 fl | [facility] | | | | | | LABORATORY | | + + + + + + | MCH | 36.5 (H) | 27.0 - 34.0 pg | [...] + + + + | Platelet | 136 (L) | 150 - 400 K/uL | [facility] | | | Count | | | LABORATORY | | + + + + + + | MPV | 9.5Comment: Testing | fl | [facility] | | | | performed at [facility];[address] | | LABORATORY | | | | [address];[place], [place] | | | | | | [address] | | | | + + + + + + + + | Specimen | + + | Blood | + + + + + + + | Performing | Address | City/State/Zipcode | Phone Number | | Organization | | | | + + + + + | [facility] | [address] | [place] [address] | [phone] | + + + + + Phosphorus (01/10/2019 7:03 AM PST) + + + + + + | Component | Value | Ref Range | Performed | Pathologist | | | | | At | Signature | + + + + + + | Phosphorus | 5.4 (H)Comment: Testing | 2.3 - 4.8 mg/dL | [facility] | | | | performed at [facility];[address] | | LABORATORY | | | | [address];[place], [place] | | | | | | [address] | | | | + + + + + + + + | Specimen | + + | Blood | + + + + + + + | Performing | Address | City/State/Zipcode | Phone Number | | Organization | | | | + + + + + | [facility] | [address] | [place] [address] | [phone] | + + + + + Magnesium (01/10/2019 7:03 AM PST) + + + + + + | Component | Value | Ref Range | Performed | Pathologist | | | | | At | Signature | + + + + + + | Magnesium | 2.0Comment: Testing | 1.7 - 2.4 mg/dL | [facility] | | | | performed at [facility];[address] | | LABORATORY | | | | [address];[place] | | | | | | [address] | | | | + + + + + + + + | Specimen | + + | Blood | + + + + + + + | Performing | Address | City/State/Zipcode | Phone Number | | Organization | | | | + + + + + | [facility] | [address] | [place] [address] | [phone] | + + + + + Basic Metabolic Panel (01/10/2019 7:03 AM PST) + + + + + [...] + + + + | Glucose | 126 (H) | 65 - 99 mg/dL | [facility] | | | | | | LABORATORY | | + + + + + + | BUN | 15 | 8 - 25 mg/dL | [facility] | | | | | | LABORATORY | | + + + + + + | Creatinine | 4.35 (H) | 0.50 - 1.00 | [facility] [...] + + + + | Estimated | 13 (L)Comment: GFR <60: | >60 | [facility] [...] [place];[address] | | | | | | [facility];[place], [place] | | | | | | [address] | | | | + + + + + + + + | Specimen | + + | Blood | + + + + + + + | Performing | Address | City/State/Zipcode | Phone Number | | Organization | | | | + + + + + | [facility] | [address] | [place] [address] | [phone] | + + + + + POC Glucose (01/09/2019 9:10 PM PST) + + + + + + | Component | Value | Ref Range | Performed | Pathologist | | | | | At | Signature | + + + + + + | Glucose, | 141 (H)Comment: Testing | 65 - 99 mg/dL | [facility] | | | POC | performed at [facility];[address] | | LABORATORY | | | | [address];[place], [place] | | | | | | [address] | | | | + + + + + + + + | Specimen | + + | | + + + + + + + | Performing | Address | City/State/Zipcode | Phone Number | | Organization | | | | + + + + + | [facility] | [address] | [place] [address] | [phone] | + + + + + POC Glucose (01/09/2019 4:49 PM PST) + + + + + + | Component | Value | Ref Range | Performed | Pathologist | | | | | At | Signature | + + + + + + | Glucose, | 141 (H)Comment: Testing | 65 - 99 mg/dL | [facility] | | | POC | performed at [facility];[address] | | LABORATORY | | | | [address];[place], [place] | | | | | | [address] | | | | + + + + + + + + | Specimen | + + | | + + + + + + + | Performing | Address | City/State/Zipcode | Phone Number | | Organization | | | | + + + + + | [facility] | [address] | [place] [address] | [phone] | + + + + + XR Chest PA and Lateral (01/09/2019 4:32 PM PST) + + | Specimen | + + | | + + + + + | Impressions | Performed At | + + + | Stable right sided opacity consistent with a large layering pleural | [facility] | | effusion and compressive atelectasis. Signed by: Pedro, | | | Max Kay Sign Date/Time: 01/09/2019 5:06 PM | | + + + + + + | Narrative | Performed At | + + + | CHEST PA AND LATERAL CLINICAL INFORMATION: Shortness of | [facility] | | breath. COMPARISON: CT CHEST WO CONTRAST (01/07/2019); XR CHEST AP | | | PORTABLE (01/07/2019); CHEST TWO VIEWS [id number] (01/06/2019); XR CHEST AP | | | [...] PORTABLE (01/07/2019); | | CHEST TWO VIEWS [id number] (01/06/2019); XR CHEST AP PORTABLE (12/13/2018); | [...] + +---------+ + + ECG 12 lead (01/09/2019 2:34 PM PST) + + + + + + | Component | Value | Ref Range | Performed | Pathologist | | | | | At | Signature | + + + + + + | VENTRICULAR | 87 | BPM | [facility] | | | RATE EKG | | | | | + + + + + + | ATRIAL RATE | 87 | BPM | [facility] | | + + + + + + | P-R | 192 | ms | [facility] | | [...] + + | P WAVE AXIS | 51 | degrees | [facility] | | + + + + + + | QRS AXIS | -52 | degrees | [facility] | | + + + + + + | T AXIS | 94 | degrees | [facility] | | + + + + + + | INTERPRETAT | Normal sinus rhythmLeft | | [facility] | | | ION TEXT | axis | | | | | | deviationNonspecific T | | | | | | wave abnormalityAbnormal | | | | | | ECGWhen compared with | | | | | | ECG of 07-JAN-2019 | | | | | | 02:54,QRS axis Shifted | | | | | | leftT wave inversion now | | | | | | evident in Lateral | | | | | | leadsConfirmed by | | | | | | ADELFO ARCOS ([id number]) on | | | | | | 01/10/2019 10:50:35 AM | | | | + + [...] | | + +---------+ + + POC Glucose (01/09/2019 12:11 PM PST) + + + + + + | Component | Value | Ref Range | Performed | Pathologist | | | | | At | Signature | + + + + + + | Glucose, | 114 (H)Comment: Testing | 65 - 99 mg/dL | [facility] | | | POC | performed at [facility];[address] | | LABORATORY | | | | [address];[place], [place] | | | | | | [address] | | | | + + + + + + + + | Specimen | + + | | + + + + + + + | Performing | Address | City/State/Zipcode | Phone Number | | Organization | | | | + + + + + | [facility] | [address] | [place] [address] | [phone] | + + + + + Comprehensive Metabolic Panel (01/09/2019 9:40 AM PST) + + + + + [...] 106 | 99 - 109 mmol/L | [facility] [...] + + + + | Glucose | 128 (H) | 65 - 99 mg/dL | [facility] | | | | | | LABORATORY | | + + + + + + | BUN | 25 | 8 - 25 mg/dL | [facility] | | | | | | LABORATORY | | + + + + + + | Creatinine | 5.65 (H) | 0.50 - 1.00 | [facility] [...] + + + + | Protein, | 5.8 (L) | 6.3 - 8.2 g/dL | [facility] | | | Total | | | LABORATORY | | + + + + + + | Albumin | 3.6 | 3.6 - 5.0 g/dL | [facility] | | | | | | LABORATORY | | + + + + + + | Globulin | 2.2 | 1.3 - 4.9 g/dL | [facility] | | | | | | LABORATORY | | + + + + + + | A/G Ratio | 1.6 | 1.0 - 2.4 | [facility] | | | | | | LABORATORY | | + + + + + + | BILIRUBIN, | 0.4 | 0.1 - 1.5 mg/dL | [facility] | | | TOTAL | | | LABORATORY | | + + + + + + | ALK PHOS | 104 | 35 - 115 U/L | [facility] | | | | | | LABORATORY | | + + + + + + | AST | 32 | 10 - 45 U/L | [facility] [...] [place];[address] | | | | | | [facility];[place], [place] | | | | | | [address] | | | | + + + + + + + + | Specimen | + + | Blood | + + + + + + + | Performing | Address | City/State/Zipcode | Phone Number | | Organization | | | | + + + + + | [facility] | [address] [facility] | [place] [address] | [phone] | + + + + + CBC with Differential (01/09/2019 9:40 AM PST) + + + + + + | Component | Value | Ref Range | Performed | Pathologist | | | | | At | Signature | + + + + + + | WBC | 5.20 | 3.80 - 11.00 | [facility] | | | | | K/uL | LABORATORY | | + + + + + + | RBC | 2.68 (L) | 3.70 - 5.10 | [facility] | | | | | M/uL | LABORATORY | | + + + + + + | Hemoglobin | 9.8 (L) | 11.3 - 15.5 | [facility] | | | | | g/dL | LABORATORY | | + + + + + + | Hematocrit | 29.3 (L) | 34.0 - 46.0 % | [facility] | | | | | | LABORATORY | | + + + + + + | MCV | 109.6 (H) | 80.0 - 100.0 fl | [facility] | | | | | | LABORATORY | | + + + + + + | MCH | 36.5 (H) | 27.0 - 34.0 pg | [facility] | | | | | | LABORATORY | | + + + + + + | MCHC | 33.3 | 32.0 - 35.5 | [facility] | | | | | g/dL | LABORATORY | | + + + + + + | RDW-SD | 64.3 (H) | 37 - 53 fl | [facility] | | | | | | LABORATORY | | + + + + + + | Platelet | 131 (L) | 150 - 400 K/uL | [facility] | | | Count | | | LABORATORY | | + + + + + + | MPV | 9.9 | fl | [facility] | | | | | | LABORATORY | | + + + + + + | Diff Type | AUTOMATED | | [facility] | | | | | | LABORATORY | | + + + + + + | % | 40.86 | % | [facility] | | | Neutrophils | | | LABORATORY | | + + + + + + | % | 17.62 | % | [facility] | | | Lymphocytes | | | LABORATORY | | + + + + + + | Monocyte % | 5.39 | % | [facility] | | | | | | LABORATORY | | + + + + + + | Eosinophils | 35.13 | % | [facility] | | | % | | | LABORATORY | | + + + + + + | Basophils % | 1.00 | % | [facility] | | | | | | LABORATORY | | + + + + + + | Neutrophils | 2.12 | 1.90 - 7.40 | [facility] | | | , Absolute | | K/uL | LABORATORY | | + + + + + + | Absolute | 0.92 (L) | 1.00 - 3.90 | [facility] | | | Lymphocytes | | K/uL | LABORATORY | | + + + + + + | Absolute | 0.28 | 0.00 - 0.80 | [facility] | | | Monocytes | | K/uL | LABORATORY | | + + + + + + | Eosinophils | 1.83 (H) | 0.00 - 0.50 | [facility] [...] | | LABORATORY | | | | KM;[address] [place] [address] | | | | | | Blvd;[place] [address] | | | | + + + + + + + + | Specimen | + + | Blood | + + + + + + + | Performing | Address | City/State/Zipcode | Phone Number | | Organization | | | | + + + + + | [facility] | [address] | [place] [address] | [phone] | + + + + + POC Glucose (01/09/2019 7:50 AM PST) + + + + + + | Component | Value | Ref Range | Performed | Pathologist | | | | | At | Signature | + + + + + + | Glucose, | 161 (H)Comment: Testing | 65 - 99 mg/dL | [facility] | | | POC | performed at [facility];[address] | | LABORATORY | | | | [address];[place] | | | | | | [address] | | | | + + + + + + + + | Specimen | + + | | + + + + + + + | Performing | Address | City/State/Zipcode | Phone Number | | Organization | | | | + + + + + | [facility] | [address] | [place] [address] | [phone] | + + + + + POC Glucose (01/09/2019 6:19 AM PST) + + + + + + | Component | Value | Ref Range | Performed | Pathologist | | | | | At | Signature | + + + + + + | Glucose, | 88Comment: Testing | 65 - 99 mg/dL | [facility] | | | POC | performed at [facility];[address] | | LABORATORY | | | | [address];[place] | | | | | | [address] | | | | + + + + + + + + | Specimen | + + | | + + + + + + + | Performing | Address | City/State/Zipcode | Phone Number | | Organization | | | | + + + + + | [facility] | [address] | [place] [address] | [phone] | + + + + + POC Glucose (01/08/2019 8:56 PM PST) + + + + + + | Component | Value | Ref Range | Performed | Pathologist | | | | | At | Signature | + + + + + + | Glucose, | 134 (H)Comment: Testing | 65 - 99 mg/dL | [facility] | | | POC | performed at [facility];[address] | | LABORATORY | | | | [address];[place], [place] | | | | | | [address] | | | | + + + + + + + + | Specimen | + + | | + + + + + + + | Performing | Address | City/State/Zipcode | Phone Number | | Organization | | | | + + + + + | [facility] | [address] | [place] [address] | [phone] | + + + + + POC Glucose (01/08/2019 4:53 PM PST) + + + + + + | Component | Value | Ref Range | Performed | Pathologist | | | | | At | Signature | + + + + + + | Glucose, | 107 (H)Comment: Testing | 65 - 99 mg/dL | [facility] | | | POC | performed at [facility];[address] | | LABORATORY | | | | [address];[place] | | | | | | [address] | | | | + + + + + + + + | Specimen | + + | | + + + + + + + | Performing | Address | City/State/Zipcode | Phone Number | | Organization | | | | + + + + + | [facility] | [address] | [place] [address] | [phone] | + + + + + POC Glucose (01/08/2019 12:23 PM PST) + + + + + + | Component | Value | Ref Range | Performed | Pathologist | | | | | At | Signature | + + + + + + | Glucose, | 76Comment: Testing | 65 - 99 mg/dL | [facility] | | | POC | performed at [facility];[address] | | LABORATORY | | | | [address];[place] | | | | | | [address] | | | | + + + + + + + + | Specimen | + + | | + + + + + + + | Performing | Address | City/State/Zipcode | Phone Number | | Organization | | | | + + + + + | [facility] | [address] | [place] [address] | [phone] | + + + + + POC Glucose (01/08/2019 7:35 AM PST) + + + + + + | Component | Value | Ref Range | Performed | Pathologist | | | | | At | Signature | + + + + + + | Glucose, | 74Comment: Testing | 65 - 99 mg/dL | [facility] | | | POC | performed at [facility];[address] | | LABORATORY | | | | [address];[place] | | | | | | [address] | | | | + + + + + + + + | Specimen | + + | | + + + + + + + | Performing | Address | City/State/Zipcode | Phone Number | | Organization | | | | + + + + + | [facility] | [address] | [place] [address] | [phone] | + + + + + Comprehensive Metabolic Panel (01/08/2019 4:51 AM PST) + + + + + [...] 6.2 (H) | 3.5 - 4.9 | [facility] [...] + + + + | BUN | 56 (H) | 8 - 25 mg/dL | [facility] | | | | | | LABORATORY | | + + + + + + | Creatinine | 8.2 (H) | 0.50 - 1.00 | [facility] [...] 3.5 | 1.3 - 4.9 g/dL | [facility] | | | | | | LABORATORY | | + + + + + + | A/G Ratio | 0.9 (L) | 1.0 - 2.4 | [facility] | | | | | | LABORATORY | | + + + + + + | BILIRUBIN, | 0.7 | 0.1 - 1.5 mg/dL | [facility] | | | TOTAL | | | LABORATORY | | + + + + + + | ALK PHOS | 112 | 35 - 115 U/L | [facility] | | | | | | LABORATORY | | + + + + + + | AST | 46 (H) | 10 - 45 U/L | [facility] | | | | | | LABORATORY | | + + + + + + | ALT | 56 | 10 - 65 U/L | [facility] | | | | | | LABORATORY | | + + + + + + | Estimated | 6 (L)Comment: GFR <60: | >60 | [facility] | | | GFR | CHRONIC [...] | | | | performed at [facility], [address] | | | | | | [facility], | | | | | | [place] [address] | | | | + + + + + + + + | Specimen | + + | Blood | + + + + + + + | Performing | Address | City/State/Zipcode | Phone Number | | Organization | | | | + + + + + | [facility] | [address] | [place] [address] | [phone] | + + + + + CBC no Differential (01/08/2019 4:51 AM PST) + + + + + + | Component | Value | Ref Range | Performed | Pathologist | | | | | At | Signature | + + + + + + | WBC | 4.54 | 3.80 - 11.00 | [facility] | | | | | K/uL | LABORATORY | | + + + + + + | RBC | 2.75 (L) | 3.70 - 5.10 | [facility] | | | | | M/uL | LABORATORY | | + + + + + + | Hemoglobin | 10.0 (L) | 11.3 - 15.5 | [facility] | | | | | g/dL | LABORATORY | | + + + + + + | Hematocrit | 30.5 (L) | 34.0 - 46.0 % | [facility] | | | | | | LABORATORY | | + + + + + + | MCV | 110.9 (H) | 80.0 - 100.0 fl | [facility] | | | | | | LABORATORY | | + + + + + + | MCH | 36.5 (H) | 27.0 - 34.0 pg | [facility] | | | | | | LABORATORY | | + + + + + + | MCHC | 32.9 | 32.0 - 35.5 | [facility] | | | | | g/dL | LABORATORY | | + + + + + + | RDW-SD | 67.8 (H) | 37 - 53 fl | [facility] | | | | | | LABORATORY | | + + + + + + | Platelet | 144 (L) | 150 - 400 K/uL | [facility] | | | Count | | | LABORATORY | | + + + + + + | MPV | 10.4Comment: Testing | fl | [facility] | | | | performed at [facility], [address] | | LABORATORY | | | | [address], | | | | | | [place] [address] | | | | + + + + + + + + | Specimen | + + | Blood | + + + + + + + | Performing | Address | City/State/Zipcode | Phone Number | | Organization | | | | + + + + + | [facility] | [address] | [place] [address] | [phone] | + + + + + POC Glucose (01/07/2019 9:07 PM PST) + + + + + + | Component | Value | Ref Range | Performed | Pathologist | | | | | At | Signature | + + + + + + | Glucose, | 108 (H)Comment: Testing | 65 - 99 mg/dL | [facility] | | | POC | performed at [facility];[address] | | LABORATORY | | | | [address];[place] | | | | | | [address] | | | | + + + + + + + + | Specimen | + + | | + + + + + + + | Performing | Address | City/State/Zipcode | Phone Number | | Organization | | | | + + + + + | [facility] | [address] | [place] [address] | [phone] | + + + + + POC Glucose (01/07/2019 5:34 PM PST) + + + + + + | Component | Value | Ref Range | Performed | Pathologist | | | | | At | Signature | + + + + + + | Glucose, | 109 (H)Comment: Testing | 65 - 99 mg/dL | [facility] | | | POC | performed at [facility];[address] | | LABORATORY | | | | [address];[place] | | | | | | [address] | | | | + + + + + + + + | Specimen | + + | | + + + + + + + | Performing | Address | City/State/Zipcode | Phone Number | | Organization | | | | + + + + + | [facility] | [address] | [place] [address] | [phone] | + + + + + CT Chest wo Contrast (01/07/2019 [...] adenopathy. Upper Abdomen: The | | | [place] kidneys are atrophic. There is a small [...] No adenopathy. | | Upper Abdomen: The [place] kidneys are atrophic. There is a small [...] | | + +---------+ + + POC Glucose (01/07/2019 11:56 AM PST) + + + + + + | Component | Value | Ref Range | Performed | Pathologist | | | | | At | Signature | + + + + + + | Glucose, | 69Comment: Testing | 65 - 99 mg/dL | [facility] | | | POC | performed at [facility];[address] | | LABORATORY | | | | [address];[place], [place] | | | | | | [address] | | | | + + + + + + + + | Specimen | + + | | + + + + + + + | Performing | Address | City/State/Zipcode | Phone Number | | Organization | | | | + + + + + | [facility] | [address] | [place] [address] | [phone] | + + + + + Hepatitis B Surface Ag (01/07/2019 8:33 AM PST) + + + + + + | Component | Value | Ref Range | Performed | Pathologist | | | | | At | Signature | + + + + + + | Hepatitis B | NON REACTIVEComment: | NR | [facility] | | | Surface Ag | Testing performed at | | LABORATORY | | | | [facility], [address] | | | | | | [place] | | | | | | [address] | | | | + + + + + + + + | Specimen | + + | Blood | + + + + + + + | Performing | Address | City/State/Zipcode | Phone Number | | Organization | | | | + + + + + | [facility] | [address] | [place] [address] | [phone] | + + + + + POC Glucose (01/07/2019 7:14 AM PST) + + + + + + | Component | Value | Ref Range | Performed | Pathologist | | | | | At | Signature | + + + + + + | Glucose, | 83Comment: Testing | 65 - 99 mg/dL | [facility] | | | POC | performed at [facility];[address] | | LABORATORY | | | | [address];[place] | | | | | | [address] | | | | + + + + + + + + | Specimen | + + | | + + + + + + + | Performing | Address | City/State/Zipcode | Phone Number | | Organization | | | | + + + + + | [facility] | [address] | [place] [address] | [phone] | + + + + + XR Chest AP Portable (01/07/2019 4:18 AM PST) + + | Specimen | + + | | + + + + + | Impressions | Performed At | + + + | 1. Possible right pneumothorax, although appearance is atypical. | [facility] | | Further evaluation could be done with decubitus views of the chest. | | | 2. Confluent opacity right lung base, which may represent lobar | | | atelectasis and/or consolidation and/or residual pleural effusion. | | | Signed by: Eliza Layton, Daniel Sign Date/Time: 01/07/2019 | | | 4:41 AM | | + + + + + + | Narrative | Performed At | + + + | CHEST PORTABLE ONE VIEW CLINICAL INFORMATION: Post- | [facility] | | thoracentesis. COMPARISON: XR CHEST AP PORTABLE (12/13/2018); US | | | GUIDED THORACENTESIS WO CHEST TUBE (12/11/2018); XR CHEST AP PORTABLE | | | (12/10/2018); FINDINGS: Upright AP portable chest 01/07/2019 at | | | 0411 hours. Interval increased lucency at the right mid to lower | | | lung zone, which may represent re-expanded lung after thoracentesis | | | procedure, versus loculated anterior pneumothorax. There is a | | | peripheral lucency at the right lateral lung apex, which may | | | represent pneumothorax, slightly changed in appearance from | | | yesterday's exam. Confluent opacity seen at the right lung base. | | | Right diaphragm and right heart border completely obscured. The | | | left lung is moderately well expanded, with indistinct central | | | vasculature. No pneumothorax or large pleural effusion on the left | | | side. | | + + + + + | Procedure Note | + + | Cedric, Rad Results In - 01/07/2019 4:44 AM PST | | CHEST PORTABLE ONE VIEW | | | | CLINICAL INFORMATION: | | Post- thoracentesis. | | | | COMPARISON: | | XR CHEST AP PORTABLE (12/13/2018); US GUIDED THORACENTESIS WO CHEST | | TUBE (12/11/2018); XR CHEST AP PORTABLE (12/10/2018); | | | | FINDINGS: | | Upright AP portable chest 01/07/2019 at 0411 hours. | | | | Interval increased lucency at the right mid to lower lung zone, which | | may represent re-expanded lung after thoracentesis procedure, versus | | loculated anterior pneumothorax. There is a peripheral lucency at the | | right lateral lung apex, which may represent pneumothorax, slightly | | changed in appearance from yesterday's exam. Confluent opacity seen at | | the right lung base. Right diaphragm and right heart border completely | | obscured. | | | | The left lung is moderately well expanded, with indistinct central | | vasculature. No pneumothorax or large pleural effusion on the left | | side. | | | | IMPRESSION: | | 1. Possible right pneumothorax, although appearance is atypical. | | Further evaluation could be done with decubitus views of the chest. | | 2. Confluent opacity right lung base, which may represent lobar | | atelectasis and/or consolidation and/or residual pleural effusion. | | | | | | | | | | Signed by: Eliza Layton Brian | | Sign Date/Time: 01/07/2019 4:41 AM | + + + +---------+ + + | Performing | Address | City/State/Zipcode | Phone Number | | Organization | | | | + +---------+ + + | [facility] | | | | + +---------+ + + ECG 12 lead (01/07/2019 2:54 AM PST) + + + + + + | Component | Value | Ref Range | Performed | Pathologist | | | | | At | Signature | + + + + + + | VENTRICULAR | 91 | BPM | [facility] | | | RATE EKG | | | | | + + + + + + | ATRIAL RATE | 91 | BPM | [facility] | | + + + + + + | P-R | 200 | ms | [facility] | | | INTERVAL | | | | | + + + + + + | QRS | 92 | ms | [facility] | | | DURATION | | | | | + + + + + + | Q-T | 382 | ms | [facility] | | | INTERVAL | | | | | + + + + + + | Q-T | 469 | ms | [facility] | | | INTERVAL | | | | | | (CORRECTED) | | | | | + + + + + + | P WAVE AXIS | 44 | degrees | [facility] | | + + + + + + | QRS AXIS | -12 | degrees | [facility] | | + + + + + + | T AXIS | 121 | degrees | [facility] | | + + + + + + | INTERPRETAT | Normal sinus | | [facility] | | | ION TEXT | rhythmNonspecific ST and | | | | | | T wave | | | | | | abnormalityAbnormal | | | | | | ECGWhen compared with | | | | | | ECG of 11-DEC-2018 | | | | | | 08:11,T wave inversion | | | | | [...] (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), | | | | | | 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 JOSH CHAPPELL | | | | | | ([id number]) on 01/07/2019 | | | | | | 2:50:41 AM | | | | + + [...] | | + +---------+ + + POC Glucose (01/07/2019 2:42 AM PST) + + + + + + | Component | Value | Ref Range | Performed | Pathologist | | | | | At | Signature | + + + + + + | Glucose, | 119 (H)Comment: Testing | 65 - 99 mg/dL | [facility] | | | POC | performed at [facility];[address] | | LABORATORY | | | | [address];[place] | | | | | | [address] | | | | + + + + + + + + | Specimen | + + | | + + + + + + + | Performing | Address | City/State/Zipcode | Phone Number | | Organization | | | | + + + + + | [facility] | [address] | [place] [address] | [phone] | + + + + + POC Glucose (01/07/2019 2:08 AM PST) + + + + + + | Component | Value | Ref Range | Performed | Pathologist | | | | | At | Signature | + + + + + + | Glucose, | 67Comment: Testing | 65 - 99 mg/dL | [facility] | | | POC | performed at [facility];[address] | | LABORATORY | | | | [address];[place] | | | | | | [address] | | | | + + + + + + + + | Specimen | + + | | + + + + + + + | Performing | Address | City/State/Zipcode | Phone Number | | Organization | | | | + + + + + | [facility] | [address] | [place] [address] | [phone] | + + + + + Troponin I (01/07/2019 1:40 AM PST) + + + + + + | Component | Value | Ref Range | Performed | Pathologist | | | | | At | Signature | + + + + + + | Troponin I | 0.149 (H)Comment: 0.04 | 0.00 - 0.04 | [facility] | | | | ng/mL or [...] [facility];[address] [place] [address] | | | | | | Blvd;[place] [address] | | | | + + + + + + + + | Specimen | + + | Blood | + + + + + + + | Performing | Address | City/State/Zipcode | Phone Number | | Organization | | | | + + + + + | [facility] | [address] | [place] [address] | [phone] | + + + + + Comprehensive Metabolic Panel (01/07/2019 1:40 AM PST) + + + + + [...] 5.9 (H) | 3.5 - 4.9 | [facility] | | | | | mmol/L | LABORATORY | | + + + + + + | Cl | 108 | 99 - 109 mmol/L | [facility] | | | | | | LABORATORY | | + + + + + + | CO2 | 21 (L) | 23 - 32 mmol/L | [facility] | | | | | | LABORATORY | | + + + + + + | Anion Gap | 21 (H) | 5 - 20 mmol/L | [facility] | | | | | | LABORATORY | | + + + + + + | Glucose | 55 (L) | 65 - 99 mg/dL | [facility] | | | | | | LABORATORY | | + + + + + + | BUN | 106 (H) | 8 - 25 mg/dL | [facility] | | | | | | LABORATORY | | + + + + + + | Creatinine | 13.71 (H) | 0.50 - 1.00 | [facility] | | | | | mg/dL | LABORATORY | | + + + + + + | BUN/Creatin | 8 | | [facility] | | | ine Ratio | | | LABORATORY | | + + + + + + | Calcium | 10.3 | 8.5 - 10.5 | [facility] | | | | | mg/dL | LABORATORY | | + + + + + + | Protein, | 6.5 | 6.3 - 8.2 g/dL | [facility] | | | Total | | | LABORATORY | | + + + + + + | Albumin | 4.1 | 3.6 - 5.0 g/dL | [facility] [...] + + + | ALK PHOS | 122 (H) | 35 - 115 U/L | [facility] | | | | | | LABORATORY | | + + + + + + | AST | 51 (H) | 10 - 45 U/L | [facility] | | | | | | LABORATORY | | + + + + + + | ALT | 38 | 10 - 65 U/L | [facility] | | | | | | LABORATORY | | + + + + + + | Estimated | 3 (L)Comment: GFR <60: | >60 | [facility] | | | GFR | CHRONIC [...] [facility];[address] | | | | | | [facility];[place], [place] | | | | | | [id number] | | | | + + + + + + + + | Specimen | + + | Blood | + + + + + + + | Performing | Address | City/State/Zipcode | Phone Number | | Organization | | | | + + + + + | [facility] | [address] | [place] [address] | [phone] | + + + + + CBC with Differential (01/07/2019 1:40 AM PST) + + + + + + | Component | Value | Ref Range | Performed | Pathologist | | | | | At | Signature | + + + + + + | WBC | 10.84 | 3.80 - 11.00 | [facility] | | | | | K/uL | LABORATORY | | + + + + + + | RBC | 2.67 (L) | 3.70 - 5.10 | [facility] | | | | | M/uL | LABORATORY | | + + + + + + | Hemoglobin | 9.9 (L) | 11.3 - 15.5 | [facility] | | | | | g/dL | LABORATORY | | + + + + + + | Hematocrit | 29.5 (L) | 34.0 - 46.0 % | [facility] | | | | | | LABORATORY | | + + + + + + | MCV | 110.6 (H) | 80.0 - 100.0 fl | [facility] | | | | | | LABORATORY | | + + + + + + | MCH | 37.0 (H) | 27.0 - 34.0 pg | [facility] | | | | | | LABORATORY | | + + + + + + | MCHC | 33.4 | 32.0 - 35.5 | [facility] | | | | | g/dL | LABORATORY | | + + + + + + | RDW-SD | 68.3 (H) | 37 - 53 fl | [facility] | | | | | | LABORATORY | | + + + + + + | Platelet | 240 | 150 - 400 K/uL | [facility] [...] + + + | % Segmented | 60 | % | [facility] | | | | | | LABORATORY | | | Neutrophils | | | | | + + + + + + | % Bands | 1 | % | [facility] | | | | | | LABORATORY | | + + + + + + | % | 19 | % | [facility] | | | Lymphocytes | | | LABORATORY | | + + + + + + | % Monocytes | 2 | % | [facility] | | | | | | LABORATORY | | + + + + + + | Eosinophils | 18 | % | [facility] | | | % | | | LABORATORY | | + + + + + + | Neutrophils | 6.50 | 1.90 - 7.40 | [facility] | | | , Absolute | | K/uL | LABORATORY | | + + + + + + | Absolute | 0.11 | 0.00 - 0.20 | [facility] | | | Band | | K/uL | LABORATORY | | | Neutrophils | | | | | + + + + + + | Absolute | 2.06 | 1.00 - 3.90 | [facility] | | | Lymphocytes | | K/uL | LABORATORY | | + + + + + + | Absolute | 0.22 | 0.00 - 0.80 | [facility] | | | Monocytes | | K/uL | LABORATORY | | + + + + + + | Eosinophils | 1.95 (H) | 0.00 - 0.50 | [facility] [...] [facility];[address] [place] [address] | | | | | | Blvd;[place] [address] | | | | | |NORMAL PLT MORPH | | | | | |Testing performed at [facility];[address] [place] [address];[place] [address] | | | | | | | | | | + + + + + + + + | Specimen | + + | Blood | + + + + + + + | Performing | Address | City/State/Zipcode | Phone Number | | Organization | | | | + + + + + | [facility] | [address] | [place] [address] | [phone] | + + + + + Thoracentesis (01/07/2019 1:36 AM PST) + + + | Narrative | Performed At | + + + | Florian Nelson MD 01/07/2019 18:36 Thoracentesis Date/Time: | | | 01/07/2019 7:32 Performed by: Florian Nelson MD Authorized by: Piedad | | | M MD Eveline Consent: Verbal consent obtained. Written consent | [...] space: 6th Puncture method: | | | guly-kin-sajzdz catheter Needle size: 18 Catheter size: 18 [...] pleural effusion | | + + + documented in this encounter Visit Diagnoses + + | Diagnosis | + + | Acute respiratory distress - Primary Other pulmonary insufficiency, not elsewhere | | classified | + + | Hyperkalemia Hyperpotassemia | + + | ESRD needing dialysis (HCC) End stage renal disease | + + | Recurrent right pleural effusion Unspecified pleural effusion | + + | Anemia in ESRD (end-stage renal disease) ([facility]) Anemia in chronic kidney disease | + + | At high risk for electrolyte imbalance | + + | Chronic combined systolic and diastolic heart failure ([facility]) Chronic combined systolic | | and diastolic heart failure | + + | Dilated cardiomyopathy ([facility]) Other primary cardiomyopathies | + + | ESRD on hemodialysis ([facility]) End stage renal disease | + + | Noncompliance Personal history of noncompliance with medical treatment, presenting | | hazards to health | + + | Uncontrolled hypertension Unspecified essential hypertension | + + | Hypoglycemia Hypoglycemia, unspecified | + + | Pleural effusion, not elsewhere classified | + + documented in this encounter Administered Medications + +--------+ +--------+------+------+ | Medication Order | MAR | Action | Dose | Rate | Site | | | Action | Date | | | | + +--------+ +--------+------+------+ | acetaminophen (TYLENOL) tablet | Given | 01/08/20 | 650 mg | | | | 650 mg 650 mg, Oral, ONCE, Mon | | 19 2:26 | | | | | 01/07/19 at 0230, For 1 dose | | AM PST | | | | + +--------+ +--------+------+------+ + +---+ | | | + +---+ | albumin 25% IVPB 12.5 g 12.5 | | | g, Intravenous, Administer over 5 | | | Minutes, DIALYSIS - PRN, | | | Hypotension, Starting 01/09/19 | | | at 0800, For 3 doses, Treatment | | | date(s): 01/09/2019, For BP less | | | than 100 mm Hg. DIALYSIS USE | | | ONLY - DISCONTINUE AFTER DIALYSIS | | | THERAPY IS COMPLETE, Dialysis | | + +---+ | | | + +---+ | busPIRone (BUSPAR) tablet 5 mg | | | 5 mg, Oral, DAILY PRN, for | | | anxiety with hemodialysis, | | | Starting [facility] 01/10/19 at 0952 | | + +---+ | | | + +---+ + +---------+ +-----+ +---+ | calcium gluconate in saline 1 | New Bag | 01/08/20 | 1 g | 50 mL/hr | | | g/50 mL IVPB 1 g 1 g, | | 19 2:51 | | | | | Intravenous, Administer over 60 | | AM PST | | | | | Minutes, ONCE, 01/07/19 at | | | | | | | 0245, For 1 dose | | | | | | + +---------+ +-----+ +---+ +---+---+ | | | +---+---+ + +-------+ +-------+---+---+ | citalopram (celeXA) tablet 20 | Given | 01/11/20 | 20 mg | | | | mg 20 mg, Oral, DAILY, First | | 19 11:54 | | | | | dose (after last modification) on | | AM PST | | | | | Little 01/10/19 at 1015 | | | | | | + +-------+ +-------+---+---+ +---+---+ | | | +---+---+ + +-------+ +-------+---+---+ | clopidogrel (PLAVIX) tablet 75 | Given | 01/11/20 | 75 mg | | | | mg 75 mg, Oral, DAILY, First | | 19 7:54 | | | | | dose on 01/07/19 at 0900 | | AM PST | | | | + +-------+ +-------+---+---+ +-------+ +-------+---+---+ | Given | 01/10/20 | 75 mg | | | | | 19 2:50 | | | | | | PM PST | | | | +-------+ +-------+---+---+ | Given | 01/08/20 | 75 mg | | | | | 19 12:25 | | | | | | PM PST | | | | +-------+ +-------+---+---+ + +---+ | | | + +---+ | dextrose 10% (D10W) infusion | | | at 50 mL/hr, Intravenous, | | | CONTINUOUS PRN, hypoglycemia, | | | Starting 01/07/19 at 0536, | | | Start infusion if unable to | | | maintain blood glucose greater | | | than 70 mg/dL after two rounds of | | | hypoglycemia treatment. Recheck | | | blood glucose 30 minutes after | | | starting D10W then at least | | | hourly and PRN until it is | | | discontinued. Call provider to | | | discuss parameters for D10W | | | discontinuation., | | + +---+ | | | + +---+ | dextrose 50% injection 12.5-25 | | | g 12.5-25 g, Intravenous, PRN, | | | Low Blood Sugar, Starting Mon | | | 01/07/19 at 0536, For blood | | | glucose 50-69 mg/dl - give 12.5 g | | | For blood glucose less than 50 | | | mg/dl - give 25 g, | | + +---+ | | | + +---+ + +-------+ +------+---+---+ | diazePAM (VALIUM) injection 5 | Given | 01/08/20 | 5 mg | | | | mg 5 mg, Intravenous, ONCE, Mon | | 19 3:30 | | | | | 01/07/19 at 0320, For 1 dose | | AM PST | | | | + +-------+ +------+---+---+ +---+---+ | | | +---+---+ + +-------+ +---------+---+---+ | epoetin jenna-epbx (RETACRIT) | Given | 01/08/20 | 10,000 | | | | 10,000 units/mL injection 10,000 | | 19 9:30 | Units | | | | Units 10,000 Units, Intravenous, | | AM PST | | | | | WITH EACH DIALYSIS, Starting Mon | | | | | | | 01/07/19 at 0700, Keep in | | | | | | | refrigerator. Do not shake., | | | | | | | ESRD-related (i.e. dialysis) | | | | | | | indication? Yes, Dialysis | | | | | | + +-------+ +---------+---+---+ +---+---+ | | | +---+---+ + +-------+ +--------+---+---+ | guaiFENesin (ROBITUSSIN) 100 | Given | 01/10/20 | 200 mg | | | | mg/5 mL liquid 200 mg 200 mg, | | 19 11:50 | | | | | Oral, EVERY 4 HOURS PRN, Cough, | | AM PST | | | | | Starting 01/09/19 at 1136 | | | | | | + +-------+ +--------+---+---+ +---+---+ | | | +---+---+ + +---------+ + +-------+---+ | heparin (dialysis) 1,000 | New Bag | 01/09/20 | 500 | 0.5 | | | units/mL infusion 500 Units/hr | | 19 9:34 | Units/hr | mL/hr | | | (0.5 mL/hr), at 0.5 mL/hr, | | AM PST | | | | | Intravenous, DIALYSIS - | | | | | | | CONTINUOUS, Starting Tu01/08/19 | | | | | | | at 0815, DIALYSIS USE ONLY - | | | | | | | DISCONTINUE AFTER DIALYSIS IS | | | | | | | COMPLETE 500 UNITS /HR X 3 HOURS, | | | | | | | Treatment date(s): 01/08/2019, | | | | | | | Dialysis | | | | | | + +---------+ + +-------+---+ +---+---+ | | | +---+---+ + +---------+ + +-------+---+ | heparin (dialysis) 1,000 | New Bag | 01/10/20 | 500 | 0.5 | | | units/mL infusion 500 Units/hr | | 19 9:49 | Units/hr | mL/hr | | | (0.5 mL/hr), at 0.5 mL/hr, | | AM PST | | | | | Intravenous, Continuous Once, | | | | | | | Starting 01/09/19 at 0830, For | | | | | | | 3 hours, DIALYSIS USE ONLY - | | | | | | | DISCONTINUE AFTER DIALYSIS IS | | | | | | | COMPLETE, Treatment date(s): | | | | | | | 01/09/2019, Dialysis | | | | | | + +---------+ + +-------+---+ +---+---+ | | | +---+---+ + +-------+ +--------+---+---+ | heparin (dialysis) 1,000 | Given | 01/09/20 | 1,000 | | | | units/mL injection 1,000 Units | | 19 9:30 | Units | | | | 1,000 Units, Intravenous, | | AM PST | | | | | DIALYSIS - ONCE, 01/08/19 at | | | | | | | 0815, For 1 dose, DIALYSIS USE | | | | | | | ONLY - DISCONTINUE AFTER DIALYSIS | | | | | | | IS COMPLETE 1000 UNITS BOLUS | | | | | | | PRIOR TO HD TX START., Treatment | | | | | | | date(s): 01/08/2019, Dialysis | | | | | | + +-------+ +--------+---+---+ +---+---+ | | | +---+---+ + +-------+ +--------+---+---+ | heparin (dialysis) 1,000 | Given | 01/10/20 | 1,000 | | | | units/mL injection 1,000 Units | | 19 9:45 | Units | | | | 1,000 Units, Intravenous, | | AM PST | | | | | DIALYSIS - ONCE, 01/09/19 at | | | | | | | 0830, For 1 dose, DIALYSIS USE | | | | | | | ONLY - DISCONTINUE AFTER DIALYSIS | | | | | | | IS COMPLETE, Treatment date(s): | | | | | | | 01/09/2019, Dialysis | | | | | | + +-------+ +--------+---+---+ +---+---+ | | | +---+---+ + +-------+ +-------+---+---+ | hydrOXYzine hydrochloride | Given | 01/11/20 | 10 mg | | | | (ATARAX) tablet 10 mg 10 mg, | | 19 12:12 | | | | | Oral, EVERY 6 HOURS PRN, Anxiety, | | AM PST | | | | | Starting 01/08/19 at 1151 | | | | | | + +-------+ +-------+---+---+ +-------+ +-------+---+---+ | Given | 01/10/20 | 10 mg | | | | | 19 11:50 | | | | | | AM PST | | | | +-------+ +-------+---+---+ | Given | 01/09/20 | 10 mg | | | | | 19 12:48 | | | | | | PM PST | | | | +-------+ +-------+---+---+ +---+---+ | | | +---+---+ + +-------+ +-------+---+---+ | labetalol (TRANDATE) 5 mg/mL | Given | 01/11/20 | 10 mg | | | | injection 10 mg 10 mg, | | 19 2:33 | | | | | Intravenous, EVERY 4 HOURS PRN, | | PM PST | | | | | SBP 160, Starting 01/07/19 at | | | | | | | 0536 | | | | | | + +-------+ +-------+---+---+ +-------+ +-------+---+---+ | Given | 01/11/20 | 10 mg | | | | | 19 1:27 | | | | | | AM PST | | | | +-------+ +-------+---+---+ | Given | 01/10/20 | 10 mg | | | | | 19 6:44 | | | | | | AM PST | | | | +-------+ +-------+---+---+ + +---+ | | | + +---+ | lidocaine (LIDODERM) 5% patch 1 | | | patch 1 patch, Transdermal, | | | DAILY, First dose on Mon01/09/19 | | | at 1300, Apply for 12 hours, then | | | remove for 12 hours., Time to | | | remove patch: 1:00 AM | | + +---+ | | | + +---+ + +-------+ +-------+---+---+ | losartan (COZAAR) tablet 25 mg | Given | 01/11/20 | 25 mg | | | | 25 mg, Oral, DAILY, First dose | | 19 7:55 | | | | | on Mon01/07/19 at 0900 | | AM PST | | | | + +-------+ +-------+---+---+ +-------+ +-------+---+---+ | Given | 01/10/20 | 25 mg | | | | | 19 2:51 | | | | | | PM PST | | | | +-------+ +-------+---+---+ | Given | 01/08/20 | 25 mg | | | | | 19 12:25 | | | | | | PM PST | | | | +-------+ +-------+---+---+ +---+---+ | | | +---+---+ + +-------+ +------+---+---+ | melatonin tablet 3 mg 3 mg, | Given | 01/08/20 | 3 mg | | | | Oral, NIGHTLY PRN, Insomnia, | | 19 9:06 | | | | | Starting 01/07/19 at 0536 | | PM PST | | | | + +-------+ +------+---+---+ +---+---+ | | | +---+---+ + +-------+ +-------+---+---+ | methylPREDNISolone sodium | Given | 01/10/20 | 40 mg | | | | succinate (solu-MEDROL) 40 mg/mL | | 19 6:06 | | | | | injection 40 mg 40 mg, | | PM PST | | | | | Intravenous, ONCE, 01/09/19 at | | | | | | | 1815, For 1 dose, Mix with 1 mL | | | | | | | provided diluent to make 40 | | | | | | | mg/mL., | | | | | | + +-------+ +-------+---+---+ +---+---+ | | | +---+---+ + +-------+ +-------+---+---+ | metoprolol succinate | Given | 01/11/20 | 50 mg | | | | (TOPROL-XL) ER tablet 50 mg 50 | | 19 7:54 | | | | | mg, Oral, DAILY, First dose on | | AM PST | | | | | 01/07/19 at 0900, Tablet may | | | | | | | be cut where scored but do not | | | | | | | crush., | | | | | | + +-------+ +-------+---+---+ +-------+ +-------+---+---+ | Given | 01/10/20 | 50 mg | | | | | 19 2:50 | | | | | | PM PST | | | | +-------+ +-------+---+---+ | Given | 01/08/20 | 50 mg | | | | | 19 12:26 | | | | | | PM PST | | | | +-------+ +-------+---+---+ +---+---+ | | | +---+---+ + +-------+ +-------+---+---+ | metoprolol tartrate (LOPRESSOR) | Given | 01/08/20 | 25 mg | | | | tablet 25 mg 25 mg, Oral, ONCE, | | 19 2:21 | | | | | 01/07/19 at 0150, For 1 dose | | AM PST | | | | + +-------+ +-------+---+---+ +---+---+ | | | +---+---+ + +-------+ +------+---+---+ | ondansetron (ZOFRAN) injection | Given | 01/11/20 | 4 mg | | | | 4 mg 4 mg, Intravenous, EVERY 6 | | 19 1:54 | | | | | HOURS PRN, Nausea, Vomiting, | | PM PST | | | | | Starting 01/07/19 at 0536, | | | | | | | First line agent, | | | | | | + +-------+ +------+---+---+ +-------+ +------+---+---+ | Given | 01/11/20 | 4 mg | | | | | 19 7:57 | | | | | | AM PST | | | | +-------+ +------+---+---+ | Given | 01/11/20 | 4 mg | | | | | 19 12:13 | | | | | | AM PST | | | | +-------+ +------+---+---+ +---+---+ | | | +---+---+ + +-------+ + +---+---+ | oxyCODONE-acetaminophen | Given | 01/11/20 | 1 tablet | | | | (PERCOCET) 5-325 mg per tablet 1 | | 19 1:54 | | | | | tablet 1 tablet, Oral, EVERY 6 | | PM PST | | | | | HOURS PRN, Pain, Starting Mon | | | | | | | 01/07/19 at 0557 | | | | | | + +-------+ + +---+---+ +-------+ + +---+---+ | Given | 01/11/20 | 1 tablet | | | | | 19 7:57 | | | | | | AM PST | | | | +-------+ + +---+---+ | Given | 01/11/20 | 1 tablet | | | | | 19 12:12 | | | | | | AM PST | | | | +-------+ + +---+---+ +---+---+ | | | +---+---+ + +-------+ + +---+---+ | oxyCODONE-acetaminophen | Given | 01/08/20 | 1 tablet | | | | (PERCOCET) 5-325 mg per tablet 1 | | 19 10:50 | | | | | tablet 1 tablet, Oral, ONCE, Mon | | PM PST | | | | | 01/07/19 at 2245, For 1 dose | | | | | | + +-------+ + +---+---+ +---+---+ | | | +---+---+ + +-------+ +-------+---+---+ | pantoprazole (PROTONIX) DR | Given | 01/11/20 | 40 mg | | | | tablet 40 mg 40 mg, Oral, DAILY | | 19 6:39 | | | | | BEFORE BREAKFAST, First dose on | | AM PST | | | | | 01/07/19 at 0730, Do not cut | | | | | | | or crush., Indication: GERD | | | | | | + +-------+ +-------+---+---+ +-------+ +-------+---+---+ | Given | 01/10/20 | 40 mg | | | | | 19 6:35 | | | | | | AM PST | | | | +-------+ +-------+---+---+ | Given | 01/09/20 | 40 mg | | | | | 19 4:36 | | | | | | AM PST | | | | +-------+ +-------+---+---+ +---+---+ | | | +---+---+ + +-------+ +---------+---+---+ | promethazine (PHENERGAN) (IV | Given | 01/08/20 | 6.25 mg | | | | ONLY) injection 6.25 mg 6.25 mg, | | 19 2:43 | | | | | Intravenous, ONCE, 01/07/19 | | AM PST | | | | | at 0245, For 1 dose, Vesicant. | | | [...] | sevelamer carbonate (RENVELA) | Given | 01/11/20 | 1,600 mg | | | | tablet 1,600 mg 1,600 mg, Oral, | | 19 11:54 | | | | | 3 TIMES DAILY WITH MEALS, First | | AM PST | | | | | dose on Mon01/07/19 at 0800, Do | | | | | | | not cut or crush tablets., | | | | | | + +-------+ + +---+---+ +-------+ + +---+---+ | Given | 01/11/20 | 1,600 mg | | | | | 19 7:55 | | | | | | AM PST | | | | +-------+ + +---+---+ | Given | 01/10/20 | 1,600 mg | | | | | 19 5:01 | | | | | | PM PST | | | | +-------+ + +---+---+ + +---+ | | | + +---+ | sodium chloride 0.9% (NS) bolus | | | 100 mL 100 mL, Intravenous, | | | Administer over 15 Minutes, | | | DIALYSIS - PRN, Hypotension, | | | Starting Mon01/08/19 at 0758, | | | Treatment date(s): 01/08/2019, For | | | BP less than 100 mm Hg. Give | | | 100 mL bolus up to 1000 mL. | | | DIALYSIS USE ONLY - DISCONTINUE | | | AFTER DIALYSIS THERAPY IS | | | COMPLETE, Dialysis | | + +---+ | | | + +---+ documented in this encounter
--- OUTSIDE RECORDS SUMMARY | ~2019-03-12 | XMS | Encounter Summary ---
Demographics + + + | Address | [address] | | | [place] [address] | + + + | Home Phone [...] | | | | | [place] [address] | | + + + + + | Thania Mallory | ECON | [address] | | | | | [place] [address] | | + + + + + | Deidra Weldon | ECON | [address] | | | | | [place] | | | | | [address] | | + + + + + Care Team Providers + +------+ + | Care Distribution Associate Name | Role | Phone | [...] | | | | | [place] [employer] [place], | | | | | | [place] [address] | | | +--------+ + + + [...] Denise | | | | | | [place], [place] | | | | | | [address] | | | | | | [phone] | | | | | | | [...] DANILO - | [address], | [place] [address] | | | IMMUNOGENETICS/TRANS | [address] | | | | [facility] | | | | + + + + + documented in this encounter Visit Diagnoses Not on filedocumented in this encounter"
--- OUTSIDE RECORDS SUMMARY | ~2019-03-12 | XMS | Encounter Summary ---
Demographics + + + | Address | [address] | | | [place] [address] | + + + | Home Phone [...] | Author | [facility] | | | and Josephana | + + + | Organization | [facility] [...] Providers + +------+ + | Care Certified Professional Ergonomist Name | Role | Phone | + [...] NEPHROLOGY [address] | M, DO [address] | | | | | [address] | [place] | | | | | [place], [place] | [place], [place] | | | | | [address] | [address] | | | | | [phone] | | | +--------+ + + + [...] PM PDTManually faxed demographic sheet, copy of brick&mobile cards, progress note from 04/28/14 and 02/24/14 [...] [place] | | | | | | [place] [address] | | | | | | [phone] | | | | | | | | +--------+---------+ + + + documented as of this encounter Visit Diagnoses Not on filedocumented in this encounter"
--- OUTSIDE RECORDS SUMMARY | ~2019-03-12 | XMS | Encounter Summary ---
Demographics + + + | Address | [address] | | | [place] [address] | + + + | Home Phone [...] Author | [facility] | | | and Josephana | + + + | Organization | [facility] | | | and Josephana [...] Team Providers + +------+ + | Care Pushcart Peddler Name | Role | Phone | + [...] | | | | DEPARTMENT [address] | [facility] | | | | [address] | [place], [place] | | | | | [place], [place] | [address] | | | | | [address] | [phone] | | | | | [phone] | | | +--------+ + + + [...] [place] | | | | | | [place] [address] | | | | | | [phone] | | | | | | | | +--------+---------+ + + + documented as of this encounter Visit Diagnoses Not on filedocumented in this encounter"
--- OUTSIDE RECORDS SUMMARY | ~2019-03-12 | XMS | Encounter Summary ---
Demographics + + + | Address | [address] | | | [place] [address] | + + + | Home Phone [...] | [facility] | | | and Josephana | + + + | Organization | [facility] | [...] Providers + +------+ + | Care Life Scientists Name | Role | Phone | + [...] | stage renal | [address] | [address] [place] [address] | | | | | disease) | Shun Griffin | [place] | | | | | ([facility]) | [address] | [address] | | | | | Anemia in | [place], [place] | [place] | | | | | ESRD | [address] | [address] Phone: | | | | | (end-stage | Phone: | [phone] | | | | | renal | [phone] | Fax: | | | | | disease) | Fax: | [phone] | | | | | ([facility]) | [phone] | | | | | | Procedures | | | | | | | OR OFFICE | | | | | | [...] DO [address] | renal disease) ([facility]) | | | | [address] | [place] | (Primary Dx); | | | | [place], [place] | [place], [place] | Anemia in ESRD | | | | [address] | [address] | (end-stage renal | | | | [phone] | | disease) ([facility]) | +--------+ + + + + Social [...] rechec k her in 2 weeks. CC: Brant Fina Joy MD, [facility], [facility] signed by Jorje Camp DO [...] [place] | | | | | | [place] [address] | | | | | | [phone] | | | | | | | | +--------+---------+ + + + documented as of this encounter Visit Diagnoses + + | Diagnosis | + + | ESRD (end stage renal disease) ([facility]) - Primary End stage renal disease | + + | Anemia in ESRD (end-stage renal disease) ([facility]) Anemia in chronic kidney disease | + + documented in this encounter"
--- OUTSIDE RECORDS SUMMARY | ~2019-03-12 | XMS | Encounter Summary ---
Demographics + + + | Address | [address] | | | [place] [address] | + + + | Home Phone [...] | | | | | [place] [address] | | + + + + + | Thania Mallory | ECON | [address] | | | | | [place] [address] | | + + + + + | Deidra Weldon | ECON | [address] | | | | | [place] | | | | | [address] | | + + + + + Care Team Providers + +------+ + | Care Underground Repairer Name | Role | Phone | [...] | | [address] | [facility] | | | | | [address] [facility], | [place], [place] | | | | | [place] [address] | [address] | | | | | [phone] | | | +--------+ + + + [...] | | | | | | [place] | | | | | | [address] | | | | | | [phone] | | | | | | | | +--------+ + + + + documented as of this encounter Visit Diagnoses Not on filedocumented in this encounter"
--- OUTSIDE RECORDS SUMMARY | ~2019-03-12 | XMS | Encounter Summary ---
Demographics + + + | Address | [address] | | | [place] [address] | + + + | Home Phone [...] | | | | | [place] [address] | | + + + + + | Thania Mallory | ECON | [address] | | | | | [place] [address] | | + + + + + | Deidra Weldon | ECON | [address] | | | | | [place] | | | | | [address] | | + + + + + Care Team Providers + +------+ + | Care Medical Secretary Teacher Name | Role | Phone | [...] on | | | | [place], | [place], [place] | psychosocial goals | | | | [place] [address] | [address] | related to listing | | | | [phone] | | status) | +--------+ + + [...] [place] | | | | | | [address] | | | | | | [phone] | | | | | | | | +--------+ + + + + documented as of this encounter Visit Diagnoses Not on filedocumented in this encounter"
--- OUTSIDE RECORDS SUMMARY | ~2019-03-12 | XMS | Encounter Summary ---
Demographics + + + | Address | [address] | | | [place] [address] | + + + | Home Phone [...] | Author | [facility] | | | and Josephana | + + + | Organization | [facility] | [...] Team Providers + +------+ + | Care Advertisement Distributor Name | Role | Phone | + +------+ + PCP | Unavailable | + +------+ + Encounter Details +--------+ + + + + | Date | Type | Department | Care Team | Description | +--------+ + + + + | 05/29/ | Hospital | [facility] | Conversion | End stage renal | | 2014 | Encounter | [facility] | Transaction, | disease (HCC) | | | | [address] | Provider Unknown | | | | | [place], [place] | [phone] | | | | | [address] | | | | | | [phone] | Natashakirit Darryn, | | | | | | MD [address] | | | | | | [place], [place] | | | | | | [address] | | | | | | | [...] [place] | | | | | | [place] [address] | | | | | | [phone] | | | | | | | [...] LAB | | Testing performed at [facility];[address] [place] [address];[place] [address] MRSA PCR | | | NEGATIVE Testing performed at | | | [address];[place] [address] | | + + + + +---------+ [...]
--- OUTSIDE RECORDS SUMMARY | ~2019-03-12 | XMS | Encounter Summary ---
Demographics + + + | Address | [address] | | | [place] [address] | + + + | Home Phone [...] | | | | | [place] [address] | | + + + + + | Thania Mallory | ECON | [address] | | | | | [place] [address] | | + + + + + | Deidra Weldon | ECON | [address] | | | | | [place] | | | | | [address] | | + + + + + Care Team Providers + +------+ + | Care Counseling Specialist Name | Role | Phone | + +------+ + PCP | Unavailable | + +------+ + Encounter Details +--------+ + + + + | Date | Type | Department | Care Team | Description | +--------+ + + + + | 03/22/ | Abstract | Pediatric | Sudhakar Joy | | | 2013 | | Nephrology at | MD Emanuel [address] [facility] | | | | | [place] | [place] | | | | | [facility] | [place], [place] | | | | | [address] [facility] | [address] | | | | | Mailcode: DCH7 | [phone] | | | | | [place] | | | | | | [place], [place] | | | | | | [address] | | | | | | [phone] | | | +--------+ + + + [...] Denise | | | | | | [place], [place] | | | | | | [address] | | | | | | [phone] | | | | | | | [...] + + | [facility] - | [address] | [place] | [phone] | | [place] | | | | + + + + + documented in this encounter Visit Diagnoses Not on filedocumented in this encounter"
--- OUTSIDE RECORDS SUMMARY | ~2019-03-12 | XMS | Encounter Summary ---
Demographics + + + | Address | [address] | | | [place] [address] | + + + | Home Phone [...] | | | | | [place] [address] | | + + + + + | Thania Mallory | ECON | [address] | | | | | [place] [address] | | + + + + + | Deidra Weldon | ECON | [address] | | | | | [place] | | | | | [address] | | + + + + + Care Team Providers + +------+ + | Care Excavating Contractor Name | Role | Phone | [...] | Update | | | | [address] [facility] | [facility] | | | | | [facility], | [place], [place] | | | | | [place] [address] | [address] | | | | | [phone] | | | +--------+ + + + [...] [place] | | | | | | [address] | | | | | | [phone] | | | | | | | | +--------+ + + + + documented as of this encounter Visit Diagnoses Not on filedocumented in this encounter"
--- OUTSIDE RECORDS SUMMARY | ~2019-03-12 | XMS | Encounter Summary ---
Demographics + + + | Address | [address] [facility] [address] | | | [place] [address] | + + + | Home Phone [...] | | | | | [place] [address] | | + + + + + | Thania Mallory | ECON | [address] | | | | | [place] [address] | | + + + + + | Deidra Weldon | ECON | [address] | | | | | [place] | | | | | [address] | | + + + + + [...] | | | | Dea Jane | [place], [place] | | | | | [place], [place] | [address] | | | | | [address] | | | | | | [phone] | | | +--------+ + + + [...] Denise | | | | | | [place] | | | | | | [address] | | | | | | [phone] | | | | | | | | +--------+ + + + + documented as of this encounter Visit Diagnoses Not on filedocumented in this encounter"
--- OUTSIDE RECORDS SUMMARY | ~2019-03-12 | XMS | Encounter Summary ---
Demographics + + + | Address | [address] | | | [place] [address] | + + + | Home Phone [...] | | | | | [place] [address] | | + + + + + | Thania Mallory | ECON | [address] | | | | | [place] [address] | | + + + + + | Deidra Weldon | ECON | [address] | | | | | [place] | | | | | [address] | | + + + + + Care Team Providers + +------+ + | Care Casket Liner Name | Role | Phone | + [...] | | | | | Park Dustin [address], | [place], [place] | | | | | [place] [address] | [address] | | | | | [phone] | | | +--------+ + + + [...] [place] | | | | | | [address] | | | | | | [phone] | | | | | | | | +--------+ + + + + documented as of this encounter Visit Diagnoses Not on filedocumented in this encounter"
--- OUTSIDE RECORDS SUMMARY | ~2019-03-12 | XMS | Encounter Summary ---
Demographics + + + | Address | [address] [facility] [address] [facility] | | | [place] [address] | + + + | Home Phone [...] | | | | | [place] [address] | | + + + + + | Thania Mallory | ECON | [address] | | | | | [place] [address] | | + + + + + | Deidra Weldon | ECON | [address] | | | | | [place] | | | | | [address] | | + + + + + Care Team Providers + +------+ + | Care Fabric Normalizer Name | Role | Phone | + [...] | | | | [address] [place] | [facility] | | | | | [place], | [place], [place] | | | | | [place] [address] | [address] | | | | | [phone] | | | +--------+ + + + [...] Denise | | | | | | [place] | | | | | | [address] | | | | | | [phone] | | | | | | | | +--------+ + + + + documented as of this encounter Visit Diagnoses Not on filedocumented in this encounter"
--- OUTSIDE RECORDS SUMMARY | ~2019-03-12 | XMS | Encounter Summary ---
Demographics + + + | Address | [address] | | | [place] [address] | + + + | Home Phone [...] | | | | | [place] [address] | | + + + + + | Thania Mallory | ECON | [address] | | | | | [place] [address] | | + + + + + | Deidra Weldon | ECON | [address] | | | | | [place] | | | | | [address] | | + + + + + Care Team Providers + +------+ + | Care Citizen Participation Specialist Name | Role | Phone | [...] update | | | | Caro Chan [place], | [place], [place] | from pt's mom) | | | | [place] [address] | [address] | | | | | [phone] | | | +--------+ + + + [...] Denise | | | | | | [place] | | | | | | [address] | | | | | | [phone] | | | | | | | | +--------+ + + + + documented as of this encounter Visit Diagnoses Not on filedocumented in this encounter"
--- OUTSIDE RECORDS SUMMARY | ~2019-03-12 | XMS | Encounter Summary ---
Demographics + + + | Address | [address] | | | [place] [address] | + + + | Home Phone [...] | | | | | [place] [address] | | + + + + + | Thania Mallory | ECON | [address] | | | | | [place] [address] | | + + + + + | Deidra Weldon | ECON | [address] | | | | | [place] | | | | | [address] | | + + + + + Care Team Providers + +------+ + | Care Spiral Weaver Name | Role | Phone | + [...] Services | RN [address] | | | | | [address] [place] | [facility] | | | | | [address] [place], | [place], [place] | | | | | [place] [address] | [address] | | | | | [phone] | | | +--------+ + + + [...] [place] | | | | | | [address] | | | | | | [phone] | | | | | | | | +--------+ + + + + documented as of this encounter Visit Diagnoses Not on filedocumented in this encounter"
--- OUTSIDE RECORDS SUMMARY | ~2019-03-12 | XMS | Encounter Summary ---
Demographics + + + | Address | [address] [facility] | | | [place] [address] | + + + | Home Phone [...] | | | | | [place] [address] | | + + + + + | Thania Mallory | ECON | [address] | | | | | [place] [address] | | + + + + + | Deidra Weldon | ECON | [address] | | | | | [place] | | | | | [address] | | + + + + + Care Team Providers + +------+ + | Care Sheet Cutting Operator Name | Role | Phone | [...] | | | MD [address] | [facility] | | | | | | Keven | Mailcode: | | | | | | Hospital | [facility] | | | | | | [address] | [place] | | | | | | [address] | [place], [place] | | | | | | [place] | [address] | | | | | | [place] | Phone: | | | | | | [address] | [phone] | | | | | | Phone: | | | | | | | [phone] | | | | | | | Fax: | | | | | | | [phone] | | +--------+--------+ + + + + Encounter Details +--------+---------+ + + + | Date | Type | Department | Care Team | Description | +--------+---------+ + + + | 01/20/ | Office | Specialty Clinics | Sudhakar Joy | HSP | | 2014 | Visit | at [facility] [address] MD [address] [facility] | (David | | | | [place] Mailcode: | [address] | purpura) nephritis | | | | [facility] [address] | [place], [place] | (Primary Dx); | | | | [place], [place] | [address] | Allergic purpura- | | | | [address] | [phone] | MEDICARE 2924; | | | | [phone] | | Anemia of chronic | | [...] [address] Mail code [facility] [place], [place] [address] documented in this encounter Plan of Treatment +--------+ + + + + | Date | Type | Specialty | Care Team | Description | +--------+ + + + + | 05/04/ | Hospital | Adult Acute Care | El Starr MD | | | 2022 | Encounter | | [address] | | | | | | [place], [place] | | | | | | [address] | | | | | | [phone] | | | | | | | [...]
--- OUTSIDE RECORDS SUMMARY | ~2019-03-12 | XMS | Encounter Summary ---
Demographics + + + | Address | [address] | | | [place] [address] | + + + | Home Phone [...] | Author | [facility] | | | and [place] | + + + | Organization | [facility] [...] Team Providers + +------+ + | Care Shuttle Buggy Operator Name | Role | Phone | [...] NEPHROLOGY [address] | MD [address] [place] | intermittent, | | | | [address] | [address] [place] | uncomplicated | | | | [place], [place] | [place] [address] | (Primary Dx) | | | | [address] | [phone] | | | | | [phone] | | | +--------+ + + + [...] [place] | | | | | | [place] [address] | | | | | | [phone] | | | | | | | | +--------+---------+ + + + documented as of this encounter Visit Diagnoses + + | Diagnosis | + + | Asthma, mild intermittent, uncomplicated - Primary | + + documented in this encounter"
--- OUTSIDE RECORDS SUMMARY | ~2019-03-12 | XMS | Encounter Summary ---
Demographics + + + | Address | [address] | | | [place] [address] | + + + | Home Phone [...] + + | Author | [facility] | | | and [place]ana | + + + | Organization | [facility] [...] Providers + +------+ + | Care Cut Out Machine Operator Name | Role | Phone [...] NEPHROLOGY [address] | M, DO [address] | | | | | [address] | [place], [address] | | | | | [place], [place] | [place], [place] | | | | | [address] | [address] | | | | | [phone] | | | +--------+ + + + [...] [place] | | | | | | [place] [address] | | | | | | [phone] | | | | | | | | +--------+---------+ + + + documented as of this encounter Visit Diagnoses Not on filedocumented in this encounter"
--- OUTSIDE RECORDS SUMMARY | ~2019-03-12 | XMS | Encounter Summary ---
Demographics + + + | Address | [address] | | | [place] [address] | + + + | Home Phone [...] | | | | | [place] [address] | | + + + + + | Thania Mallory | ECON | [address] | | | | | [place] [address] | | + + + + + | Deidra Weldon | ECON | [address] | | | | | [place] | | | | | [address] | | + + + + + Care Team Providers + +------+ + | Care Computer Assistant Name | Role | Phone | [...] [address] | | | | | | [address] | [place] | | | | | | [address] | [place], [place] | | | | | | [place] | [address] | | | | | | [place] | Phone: | | | | | | [address] | [phone] | | | | | | Phone: | | | | | | | [phone] | | | | | | | Fax: | | | | | | | [phone] | | +--------+--------+ + + + + Encounter Details +--------+---------+ + + + | Date | Type | Department | Care Team | Description | +--------+---------+ + + + | 05/11/ | Office | Specialty Clinics | Sudhakar Joy | HSP | | 2015 | Visit | at [facility] [address] | DMD [address] | [facility] | | | | [place] Mailcode: | [address] | purpura) nephritis | | | | [facility] [address] | [place], [place] | (Primary Dx); Anemia | | | | [place], [place] | [address] | of chronic kidney | | | | [address] | [phone] | failure, stage 5 | | | | [phone] | | (HCC) | +--------+---------+ + + [...] 11:19 AM PSTKeep working on the lo [facility] phosphorus and financial plan See me in [...] [address] Mail code [facility] [place], [place] [id number] Estrella Brennan MA - 05/12/2015 10:48 AM [...] Denise | | | | | | [place], [place] | | | | | | [address] | | | | | | [phone] | | | | | | | [...]
--- OUTSIDE RECORDS SUMMARY | ~2019-03-12 | XMS | Encounter Summary ---
Demographics + + + | Address | [address] | | | [place] [address] | + + + | Home Phone [...] | Author | [facility] | | | and [place]ana | + + + | Organization | [facility] [...] Team Providers + +------+ + | Care Register Clerk Name | Role | Phone | [...] | stage renal | [address] | [address] [place] [address] | | | | | disease) | Shun Griffin | [address] | | | | | ([facility] | [address] | [address] [place] | | | | | Anemia in | [place], [place] | [place] | | | | | ESRD | [address] | [address] Phone: | | | | | (end-stage | Phone: | [phone] | | | | | renal | [phone] | Fax: | | | | | disease) | Fax: | [phone] | | | | | ([facility]) | [phone] | | | | | | Procedures | | | | | | | GA OFFICE | | | | | | [...] | | [address] | [place], [address] | (Primary Dx) | | | | [place], [place] | [place], [place] | | | | | [address] | [address] | | | | | [phone] | | | +--------+ + + + [...] uding the charge nurse, staff nurses, PCT's, food counter worker, dietitian myself she fails to heed [...] today in Plan: 1. Will continue to awake overnight counselor her about her high risk for cardiovascular morbidity and compl ications given her lack of full compliance with her treatment. 2. The renal HOME CARE PHYSICAL THERAPIST has been attempting to reach her. However, [...] DAVIDSON | | | | | | [place] [address] | | | | | | [phone] | | | | | | | | +--------+---------+ + + + documented as of this encounter Visit Diagnoses + + | Diagnosis | + + | ESRD (end stage renal disease) (HCC) - Primary End stage renal disease | + + documented in this encounter"
--- OUTSIDE RECORDS SUMMARY | ~2019-03-12 | XMS | Encounter Summary ---
Demographics + + + | Address | [address] | | | [place] [address] | + + + | Home Phone [...] | | | | | [place] [address] | | + + + + + | Thania Mallory | ECON | [address] | | | | | [place] [address] | | + + + + + | Deidra Weldon | ECON | [address] | | | | | [place] | | | | | [address] | | + + + + + Care Team Providers + +------+ + | Care Computer Project Manager Name | Role | Phone [...] updated) | | | | [address] [place], | [place], [place] | | | | | [place] [address] | [address] | | | | | [phone] | [phone] | | | | | | | [...] Denise | | | | | | [place] | | | | | | [address] | | | | | | [phone] | | | | | | | | +--------+ + + + + documented as of this encounter Visit Diagnoses Not on filedocumented in this encounter"
--- OUTSIDE RECORDS SUMMARY | ~2019-03-12 | XMS | Encounter Summary ---
Demographics + + + | Address | [address] | | | [place] [address] | + + + | Home Phone [...] | | | | | [place] [address] | | + + + + + | Thania Mallory | ECON | [address] | | | | | [place] [address] | | + + + + + | Deidra Weldon | ECON | [address] | | | | | [place] | | | | | [address] | | + + + + + Care Team Providers + +------+ + | Care Nanny Babysitter Name | Role | Phone | + +------+ + | Shahid Camargo MD | PCP | | + +------+ + Encounter Details +--------+ + + + + | Date | Type | Department | Care Team | Description | +--------+ + + + + | 12/19/ | Document-Sc | UNKNOWN DEPARTMENT | Unknown . | | | 2012 | anned | [address] [facility] | | | | | | [facility] | | | | | | [place], [place] | | | | | | [address] | | | +--------+ + + + [...] Denise | | | | | | [place], [place] | | | | | | [address] | | | | | | [phone] | | | | | | | | +--------+ + + + + documented as of this encounter Visit Diagnoses Not on filedocumented in this encounter"
--- OUTSIDE RECORDS SUMMARY | ~2019-03-12 | XMS | Encounter Summary ---
Demographics + + + | Address | [address] | | | [place] [address] | + + + | Home Phone [...] | | | | | [place] [address] | | + + + + + | Thania Mallory | ECON | [address] | | | | | [place] [address] | | + + + + + | Deidra Weldon | ECON | [address] | | | | | [place] | | | | | [address] | | + + + + + [...] | | | | [address] [place] | [facility] | | | | | [facility], | [place], [place] | | | | | [place] [address] | [address] | | | | | [phone] | | | +--------+ + + + [...] Denise | | | | | | [place], [place] | | | | | | [address] | | | | | | [phone] | | | | | | | | +--------+ + + + + documented as of this encounter Visit Diagnoses Not on filedocumented in this encounter"
--- OUTSIDE RECORDS SUMMARY | ~2019-03-12 | XMS | Encounter Summary ---
Demographics + + + | Address | [address] | | | [place] [address] | + + + | Home Phone [...] Author | [facility] | | | and [place]ana | + + + | Organization | [facility] | | [...] Providers + +------+ + | Care Sales Secretary Name | Role | Phone | [...] [address] | M, DO [address] [place] | | | | | [address] | [place], [address] | | | | | [place], [place] | [place], [place] | | | | | [address] | [address] | | | | | [phone] | | | +--------+ + + + [...] DAVIDSON | | | | | | [place] [address] | | | | | | [phone] | | | | | | | | +--------+---------+ + + + documented as of this encounter Visit Diagnoses Not on filedocumented in this encounter"
--- OUTSIDE RECORDS SUMMARY | ~2019-03-12 | XMS | Encounter Summary ---
Demographics + + + | Address | [address] | | | [place] [address] | + + + | Home Phone [...] | Author | [facility] | | | and [place]ana | + + + | Organization | [facility] | | [...] Providers + +------+ + | Care Electric Motor Tester Name | Role | Phone | [...] | stage renal | [address] | [address] [place] [address] | | | | | disease) | Shun Griffin | [place] | | | | | ([facility]) | [address] | [address] [place] | | | | | Anemia in | [place], [place] | [place] | | | | | ESRD | [address] | [address] Phone: | | | | | (end-stage | Phone: | [phone] | | | | | renal | [phone] | Fax: | | | | | disease) | Fax: | [phone] | | | | | ([facility]) | [phone] | | | | | | Procedures [...] [address] | renal disease) ([facility]) | | | | [address] | [place], [address] | (Primary Dx) | | | | [place], [place] | [place], [place] | | | | | [address] | [address] | | | | | [phone] | | | +--------+ + + + [...] is seen on the MWF shift at [place], [place]. 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 Sadly, efforts at counseling by multiple caregivers including Dr. Ibarra, myself, Staff Nurs es, and Clinic REIKI PRACTITIONER have failed to reach her. She continues [...] Will recheck her in 2 weeks. : [place] Fina Joy M.D., Pediatric Nephrology, [facility] documented in t his encounter Plan [...] DAV[place]SON | | | | | | [place] [address] | | | | | | [phone] | | | | | | | | +--------+---------+ + + + documented as of this encounter Visit Diagnoses + + | Diagnosis | + + | ESRD (end stage renal disease) (HCC) - Primary End stage renal disease | + + documented in this encounter"
--- OUTSIDE RECORDS SUMMARY | ~2019-03-12 | XMS | Encounter Summary ---
Demographics + + + | Address | [address] | | | [place] [address] | + + + | Home Phone [...] Author | [facility] | | | and Josephana | + + + | Organization | [facility] [...] Team Providers + +------+ + | Care Torch Straightener Name | Role | Phone | + +------+ + | Tien Nicholson MD | PCP | | + +------+ + Encounter Details +--------+ + + + + | Date | Type | Department | Care Team | Description | +--------+ + + + + | 08/20/ | Hospital | [facility] | Ramón Dunn | Non-cardiogenic | | 2019 - | Encounter | [facility] | MD Juan Alberto [address] | pulmonary edema | | | | CARE FLOOR [address] [place], [place] | | | 08/23/ | | [address] | [address] | | | 2019 | | [place], [place] | | | | | | [address] | | | | | | [phone] | | | +--------+ + + + [...] 1300 Date of Service: 08/23/18818 Status: Signed Battery Plate Remover: Paty Kline DO (Physician) Patient: Dara Weldon [...] presented to the emergency d epartment of [facility] in [place] on 08/21 for dyspnea and underwent right t horacentesis with removal of 2.5L of fluid. Patient was sent home after the procedure. Muriel rtly thereafter patient became very short of breath and started having pinkish frothy sputum . Patient also developed right-sided chest pain over area of thoracentesis. She returned t o emergency department of [facility]. Patient was tachycardic and short of b reath but was saturating well on room air. Chest x-ray showed pulmonary edema of right bridgette g but left lung was reportedly normal. Patient was transferred to [facility] for acute hypoxic respiratory failure and acute [...] Nicholson MD [address] [place] [id number] Medication List CHANGE how you take these [...] | | | | renal disease) ([facility]) | protocol | | | | [...] 08/23/181305 Date of Service: 08/23/181305 Status: Signed Battery Plate Remover: Mitzy Schilling RN (Registered Nurse) Pt A&Ox4, [...] Date of Service: 08/23/18 1144 Status: Signed Battery Plate Remover: Patria Norman RN (Registered Nurse) CM placed call to Pts PCP and they will contact pt to schedule follow up appointment as gopal n as possible. CM placed call to [facility] Pulmonology to attempt to move pts appointment with Dr Alexander to a closer date, they will now see her in September rather November and AVS will be up dated. onver arturo Transaction, Provider Unknown - 08/23/2018 11:37 AM PDT Nurse Progress Note by Mitzy Schilling RN at 08/23/18 1137 Author: Mitzy Schilling RN Service: (none) Author Type: Registered Nurse Filed: 08/23/187 Date of Service: 08/23/181136 Status: Signed Battery Plate Remover: Mitzy Schilling RN (Registered Nurse) Resumed care from ABRIL Carranza. Agree with assessments thus far. Will continue to monitor. Mitzy Schilling RN onver arturo Transaction, Provider Unknown - 08/23/2018 2:34 AM PDT Nurse Progress Note by Hannah Madrigal RN at 08/23/184 Author: Hannah Madrigal RN Service: (none) Author Type: Registered Nurse Filed: 08/23/18 0530 Date of Service: 08/23/18233 Status: Signed Battery Plate Remover: Hannah Madrigal RN (Registered Nurse) VSS, pt [...] 08/22/181827 Date of Service: 08/22/181823 Status: Signed Battery Plate Remover: Paco Macedo RN (Registered Nurse) Patient is [...] 08/22/181808 Date of Service: 08/22/181800 Status: Signed Battery Plate Remover: Brent Greenberg () mica inspector appreciated. Pt sitting up in bed. Pt [...] to find a grief support group in [facility] where she lives. Chp affirmed this as an excellent idea. Chp assured pt of continuing g ood thoughts for pt. Pt thanked p for visit. Chaplain Brent Greenberg pPaty samson DO - 08/22/2018 2:55 PM PDT Progress Notes by Paty Kline DO at 08/22/18 0634 Author: Paty Klien DO Service: Hospitalist Author Type: Physician Filed: 08/22/18 7107 Date of Service: 08/22/18 9831 Status: Addendum Battery Plate Remover: Paty Kline DO (Physician) Related Notes: Original Note by Paty Kline DO (Physician) filed at 08/22/18 1193 [facility] Service: Hospitalist Progress Note Hospital [...] May 2018 presented to emergency department of [facility] in [place] this morning and underwent right thoracentesis. Patient was sent home after the procedure. However patient became very short of breath and started havi ng pinkish frothy sputum. Patient also developed right-sided chest pain over area of thorac entesis. Hence she returned to emergency department of [facility]. Patient w as tachycardic and short of breath but was saturating well on room air. Chest x-ray showed pulmonary edema of right lung but left lung was normal as per ED physician." Patient was transferred to [facility] for monitoring as she will need HD [...] 08/22/18932 Date of Service: 08/22/18928 Status: Signed Battery Plate Remover: Jessica Martell RN (Registered Nurse) 08/22/18922 Discharge Planning Evaluation Admitting Diagnosis Non-cardiogenic pulmonary edema Readmission No Living Arrangements Alone Support Systems Friends/neighbors;Family members Type of Residence Private residence House type Apartment Bathrooms on 1st Floor 1-Full Independent with ADL's Yes Independent with Mobility Yes Home Care Services No Caregiver after Discharge No Mental Status Oriented Prior functional status independent Power of Paper Making Machine Operator No Anticipated Discharge Plan Post Acute Care Needs None at this time Plan communicated to patient/family Yes Resources Financial concerns Comment (needs met but uses food bank and family/neighbors assist) Transportation issues No (friends assist w/transport to HD and appointments) Patient/Family concerns No Prescription Plan Yes Name of Pharmacy [facility] - [place], [place] Previous home health equipment No Vascular [...] concerns and states she uses hemodialysis at [facility] on Mon, Wed, Fri but denies [...] 08/22/18435 Date of Service: 08/22/18433 Status: Signed Battery Plate Remover: Jaymie Tafoya RN (Registered Nurse) Pt currently [...] 08/21/181831 Date of Service: 08/21/181828 Status: Signed Battery Plate Remover: Luz Pablo RN (Registered Nurse) Complains of rib/upper abdomen pain. Medicated, pain improved. Ambulating in room. HD today , 2.7L off. HD in a.m. At 0600. End of shift review complete. Paty Godinez DO - 08/21/2018 7:24 AM PDT Progress Notes by Paty Kline DO at 08/21/18 0724 Author: Paty Kline DO Service: Hospitalist Author Type: Physician Filed: 08/21/18 7220 Date of Service: 08/21/18723 Status: Signed Battery Plate Remover: Paty Kline DO (Physician) [facility] Service: Hospitalist Progress Note Hospital [...] May 2018 presented to emergency department of [facility] in [place] this morning and underwent right thoracentesis. Patient was sent home after the procedure. However patient became very short of breath and started havi ng pinkish frothy sputum. Patient also developed right-sided chest pain over area of thorac entesis. Hence she returned to emergency department of [facility]. Patient w as tachycardic and short of breath but was saturating well on room air. Chest x-ray showed pulmonary edema of right lung but left lung was normal as per ED physician." Patient was transferred to [facility] for monitoring as she will need HD [...] Note by Anahy Springer RN at 08/21/18 0700 Author: Anahy Springer RN Service: (none) Author Type: Registered Nurse Filed: 08/21/18 1885 Date of Service: 08/21/18 9562 Status: Addendum Battery Plate Remover: Anahy Springer RN (Registered Nurse) Related Notes: Original Note by Anahy Springer RN (Registered Nurse) filed at 08/21/18 5512 VSS. Pt c/o pain x2, pt medicated w/PRN pain meds per MAY, relief noted, and appears to be resting comfortably at this time. No acute changes from previous shift. Bed in low locked position. Call light within reach. End of shift review completed by this RN. Anahy Springer RN onver arturo Oakesaction, Provider Unknown - 08/20/2018 7:02 PM PDT Progress Notes by Kacy Moody RPH at 08/20/181901 Author: Kacy Moody RPH Service: Pharmacy Author Type: Pharmacist Filed: 08/20/181901 Date of Service: 08/20/181901 Status: Signed Battery Plate Remover: Kacy Moody RPH (Pharmacist) Clinical Pharmacy Note: [...] [address] | | | | | | [place] [address] | | | | | | [phone] | | | | | | | [...] | | | | | performed at [facility];[address] | | | | | | [facility];[place], [place] | | | | | | [address] | | | | + + + [...] effusion and elevation right hemidiaphragm. Signed by: Akash, | | | Quang Kay Date/Time: 08/21/2018 [...] + + + | RED CELL | 3.10 (L) | 3.7 0 - [...] LAB | | | | performed at [facility], [address] | | | | | | [facility], | | | | | | [place] [address] | | | | | |MACRO | | | | | |Testing performed at [facility], [facility] [place] [address] | | | | | | | [...] EXTERNAL | | | | performed at [facility], [address] | | LAB | | | | [address], | | | | | | [place] [address] | | | | + + + [...] EXTERNAL | | | | performed at [facility], [address] | | LAB | | | | [address], | | | | | | [place] [address] | | | | + + + [...] | | | | | performed at [facility], [address] | | | | | | [address], | | | | | | [place] [address] | | | | + + + [...] + + + | RED CELL | 3.37 (L) | 3.70 - 5.10 | EXTERNAL | | | COUNT | | M/uL | LAB | | + + + + + + | Hgb | 11.9 | 11.3 - 15.5 | [...] EXTERNAL | | | | performed at [facility] | | LAB | | | | [address];[place], [place] | | | | | | [address] | | | | + + + [...] | | | | | performed at [facility];[address] | | | | | | [facility];[place], [place] | | | | | | [address] | | | | + + + [...]
--- OUTSIDE RECORDS SUMMARY | ~2019-03-12 | XMS | Encounter Summary ---
Demographics + + + | Address | [address] | | | [place] [address] | + + + | Home Phone [...] | | | | | [place] [address] | | + + + + + | Thania Mallory | ECON | [address] | | | | | [place] [address] | | + + + + + | Deidra Weldon | ECON | [address] | | | | | [place] | | | | | [address] | | + + + + + Care Team Providers + +------+ + | Care Spa Consultant Name | Role | Phone | [...] | ([facility]) | Shun Griffin | Mailcode: | | | | | Procedures | Caro Chan | DCH8S | | | | | TRANSTHORACI | [place], [place] | [address] | | | | | C | [address] | [place], [place] | | | | | ECHOCARDIOGR | Phone: | [phone] | | | | | AM, PEDS | [phone] | Phone: | | | | | | Fax: | [phone] | | | | | | [phone] | Fax: | | | | | | | [phone] | +--------+--------+ + + + + Reason [...] | | conchita | [address] | [facility] | | | | | (HCC) | Shun Griffin | Mailcode: | | | | | Procedures | Caro Chan | D[facility]8S | | | | | TRANSTHORACI | [place], [place] | [address] | | | | | C | [address] | [place], [place] | | | | | ECHOCARDIOGR | Phone: | [phone] | | | | | AMKAJALS | [phone] | Phone: | | | | | | Fax: | [phone] | | | | | | [phone] | Fax: | | | | | | | [phone] | +--------+--------+ + + + + Encounter Details +--------+ + + + + | Date | Type | Department | Care Team | Description | +--------+ + + + + | 12/20/ | Hospital | Pediatric Echo Lab | | | | 2012 | Encounter | at [facility] [address] | | | | | | [address] Mailcode: | | | | | | [address] | | | | | | [place], [place] | | | | | | [address] | | | | | | [phone] | | | +--------+ + + + [...] Denise | | | | | | [place], [place] | | | | | | [address] | | | | | | [phone] | | | | | | | [...]
--- OUTSIDE RECORDS SUMMARY | ~2019-03-12 | XMS | Encounter Summary ---
Demographics + + + | Address | [address] | | | [place] [address] | + + + | Home Phone [...] Author | [facility] | | | and Josephana | + + + | Organization | [facility] [...] Team Providers + +------+ + | Care Analytical Tech Name | Role | Phone | + +------+ + PCP | Unavailable | + +------+ + Encounter Details +--------+ + + + + | Date | Type | Department | Care Team | Description | +--------+ + + + + | 06/12/ | Hospital | [facility] | Conversion | | | 2015 | Encounter | [facility] | Transaction, | | | | | CLINIC [address] | Provider Unknown | | | | | [place], [place] | [phone] | | | | | [address] | | | | | | [phone] | | | +--------+ + + + [...] [address] | | | | | | [place] [address] | | | | | | [phone] | | | | | | | [...] | | | Patient | performed at [facility];[address] | | LAB | | | | [address];[place], [place] | | | | | | [address] | | | | + + + [...] | | | performed at [facility];[address] | | | | | | [address];[place], [place] | | | | | | [address] | | | | + + + [...] | | | | | | [place] [address] | | | | + + + + + + | RED CELL | 3.83Comment: Testing | 3.70 - 5.10 | EXTERNAL | | | COUNT | performed at [facility], [address] | M/uL | LAB | | | | [address], | | | | | | [place] [address] | | | | + + + + + + | Hgb | 13.6Comment: Testing | 11.3 - 15.5 | EXTERNAL | | | | performed at [facility], [address] | g/dL | LAB | | | | [address], | | | | | | [place] [address] | | | | + + + + + + | Hematocrit, | 40.5Comment: Testing | 34.0 - 46.0 % | EXTERNAL | | | POC | performed at [facility], [address] | | LAB | | | | [address], | | | | | | [place] [address] | | | | + + + + + + | MCV | 105.8 (H)Comment: | 80.0 - 100.0 fl | EXTERNAL | | | | Testing performed at | | LAB | | | | [facility], [address] [facility] | | | | | | [place] | | | | | | [address] | | | | + + + + + + | MCH | 35.6 (H)Comment: Testing | 27.0 - 34.0 pg | EXTERNAL | | | | performed at [facility], [address] | | LAB | | | | [address], | | | | | | [place] [address] | | | | + + + + + + | MCHC | 33.6Comment: Testing | 32.0 - 35.5 | EXTERNAL | | | | performed at [facility], [address] | g/dL | LAB | | | | [address], | | | | | | [place] [address] | | | | + + + + + + | RDW-CV | 50.3Comment: Testing | 37 - 53 fl | EXTERNAL | | | | performed at [facility], [address] | | LAB | | | | [address], | | | | | | [place] [address] | | | | + + + + + + | Platelet | 170Comment: Testing | 150 - 400 K/uL | EXTERNAL | | | Count | performed at [facility], [address] | | LAB | | | Plasma | [address], | | | | | | [place] [address] | | | | + + + + + + | MPV | 9.5Comment: Testing | fl | EXTERNAL | | | | performed at [facility], [address] | | LAB | | | | [address], | | | | | | [place] [address] | | | | + + + + + + | Differentia | AUTOMATEDComment: | | EXTERNAL | | | l Type | Testing performed at | | LAB | | | | [facility], [address] [facility] | | | | | | [place] | | | | | | [address] | | | | + + + + + + | % Segmented | 61.53Comment: Testing | % | EXTERNAL | | | | performed at [facility], [address] | | LAB | | | Neutrophils | [address], | | | | | | [place] [address] | | | | + + + + + + | % | 26.38Comment: Testing | % | EXTERNAL | | | Lymphocytes | performed at [facility], [address] | | LAB | | | | [address], | | | | | | [place] [address] | | | | + + + + + + | % Monocytes | 8.30Comment: Testing | % | EXTERNAL | | | | performed at [facility], [address] | | LAB | | | | [address], | | | | | | [place] [address] | | | | + + + + + + | % | 3.19Comment: Testing | % | EXTERNAL | | | Eosinophils | performed at [facility], [address] | | LAB | | | | [address], | | | | | | [place] [address] | | | | + + + + + + | % Basophils | 0.60Comment: Testing | % | EXTERNAL | | | | performed at [facility], [address] | | LAB | | | | [address], | | | | | | [place] [address] | | | | + + + + + + | Absolute | 5.44Comment: Testing | 1.90 - 7.40 | EXTERNAL | | | Segmented | performed at [facility], [address] | K/uL | LAB | | | Neutrophils | [address], | | | | | | [place] [address] | | | | + + + + + + | Absolute | 2.33Comment: Testing | 1.00 - 3.90 | EXTERNAL | | | Lymphocytes | performed at [facility], [address] | K/uL | LAB | | | | [address], | | | | | | [place] [address] | | | | + + + + + + | Absolute | 0.74Comment: Testing | 0.00 - 0.80 | EXTERNAL | | | Monocytes | performed at [facility], [address] | K/uL | LAB | | | | [address], | | | | | | [place] [address] | | | | + + + + + + | Absolute | 0.28Comment: Testing | 0.00 - 0.50 | EXTERNAL | | | Eosinophils | performed at [facility], [address] | K/uL | LAB | | | | [address], | | | | | | [place] [address] | | | | + + + + + + | Absolute | 0.05Comment: Testing | 0.00 - 0.10 | EXTERNAL | | | Basophils | performed at [facility], [address] | K/uL | LAB | | | | [address], | | | | | | [place] [address] | | | | + + + [...] | | | | | [place] [address] | | | | + + + + + + | K | 3.8Comment: Testing | 3.5 - 4.9 | EXTERNAL | | | | performed at [facility], [address] | mmol/L | LAB | | | | [address], | | | | | | [place] [address] | | | | + + + + + + | Cl | 94 (L)Comment: Testing | 99 - 109 mmol/L | EXTERNAL | | | | performed at [facility], [address] | | LAB | | | | [address], | | | | | | [place] [address] | | | | + + + + + + | CO2 | 31Comment: Testing | 23 - 32 mmol/L | EXTERNAL | | | | performed at [facility], [address] | | LAB | | | | [address], | | | | | | [place] [address] | | | | + + + + + + | Anion Gap | 13Comment: Testing | 5 - 20 mmol/L | EXTERNAL | | | | performed at [facility], [address] | | LAB | | | | [address], | | | | | | [place] [address] | | | | + + + + + + | Glucose, | 95Comment: Testing | 65 - 99 mg/dL | EXTERNAL | | | Fasting | performed at [facility], [address] | | LAB | | | | [address], | | | | | | [place] [address] | | | | + + + + + + | BUN | 40 (H)Comment: Testing | 8 - 25 mg/dL | EXTERNAL | | | | performed at [facility], [address] | | LAB | | | | [address], | | | | | | [place] [address] | | | | + + + + + + | Creatinine | 7.24 (H)Comment: Testing | 0.50 - 1.00 | EXTERNAL | | | | performed at [facility], [address] | mg/dL | LAB | | | | [address], | | | | | | [place] [address] | | | | + + + + + + | BUN/Creatin | 6Comment: Testing | | EXTERNAL | | | ine Ratio | performed at [facility], [address] | | LAB | | | | [address], | | | | | | [place] [address] | | | | + + + + + + | Calcium | 10.2Comment: Testing | 8.5 - 10.5 | EXTERNAL | | | | performed at [facility], [address] | mg/dL | LAB | | | | [facility], | | | | | | [place] [address] | | | | + + + + + + | Estimated | CALCULATION NOT | mL/min/1.73m2 | EXTERNAL | | | GFR | PERFORMED. RESULT NOT | | LAB | | | | VALID IF AGE LT 20 | | | | | | YEARS.Comment: Testing | | | | | | performed at [facility], [address] | | | | | | [facility], | | | | | | [place] [address] | | | | + + + [...] EXTERNAL LAB | | Testing performed at [address];[place] [address] MRSA PCR | | | NEGATIVE Testing performed at | | | [address];[place] [address] | | + + + + +---------+ + + | Performing | Address | City/State/Zipcode | Phone Number | | Organization | | | | + +---------+ + + | EXTERNAL LAB | | | | + +---------+ + + documented in this encounter Visit Diagnoses Not on filedocumented in this encounter"
--- OUTSIDE RECORDS SUMMARY | ~2019-03-12 | XMS | Encounter Summary ---
Demographics + + + | Address | [address] | | | [place] [address] | + + + | Home Phone [...] | | | | | [place] [address] | | + + + + + | Thania Mallory | ECON | [address] | | | | | [place] [address] | | + + + + + | Deidra Weldon | ECON | [address] | | | | | [place] | | | | | [address] | | + + + + + Care Team Providers + +------+ + | Care Gis Application Developer Name | Role | Phone | [...] | | | | [address] | [facility] | | | | | [address] [facility], | [place], [place] | | | | | [place] [address] | [address] | | | | | [phone] | | | +--------+ + + + [...] Denise | | | | | | [place], [place] | | | | | | [address] | | | | | | [phone] | | | | | | | | +--------+ + + + + documented as of this encounter Visit Diagnoses Not on filedocumented in this encounter"
--- OUTSIDE RECORDS SUMMARY | ~2019-03-12 | XMS | Encounter Summary ---
Demographics + + + | Address | [address] | | | [place] [address] | + + + | Home Phone [...] | Author | [facility] | | | and [place]ana | + + + | Organization | [facility] | [...] Team Providers + +------+ + | Care Recreation Therapy Aides Teacher Name | Role | Phone | + +------+ + PCP | Unavailable | + +------+ + Encounter Details +--------+ + + + + | Date | Type | Department | Care Team | Description | +--------+ + + + + | 04/08/ | Hospital | [facility] | Rik Simon MD | | | 2015 | Encounter | [facility] | [address] | | | | | [address] | [place], [place] | | | | | [place] | [address] | | | | | [address] | [phone] | | | | | [phone] | | | +--------+ + + + [...] Progress Notes by Coral Amador RPH at 04/08/141425 Author: Coral Amador RPH Service: (none) Author Type: Pharmacist Filed: 04/08/14 142 Date of Service: 04/08/141425 Status: Signed Manager Custom: Coral Amador RPH (Pharmacist) Clinical Pharmacy Note - Renal Dose Adjustment Dara Weldon 19 y.o. female Ht Readings from Last 1 Encounters: 04/08/14 1.676 m (5' 6") (75 %*, Z = 0.69) * Growth percentiles are based on [facility] 2-20 Years data. Wt Readings from Last 1 Encounters: 04/08/14 96.2 kg (212 lb 1.3 oz) (98 %*, Z = 2.12) * Growth percentiles are based on [facility] 2-20 Years data. CREATININE Date Value Ref Range Status 04/08/2014 8.68* 0.50 - 1.00 mg/dL Final Testing performed at [facility];[address] [place] [address];[place] [address] ESRD on HD Pharmacy to renally adjust [...] Note by Cheryl Rubalcava RN at 04/08/14 5612 Author: Cheryl Rubalcava RN Service: (none) Author Type: Registered Nurse Filed: 04/08/14 1443 Date of Service: 04/08/141407 Status: Signed Manager Custom: Cheryl Rubalcava RN (Registered Nurse) Pt and pt family given discharge instructions, and rx script. Pt instructed to make follow up appt with AND Dr lantigua (address and phone number) on front page of pts instructions for pt. All questions answered, iv removed, catheter intact and dressing applied. Pt wheel julieth red out by escort services. Odalys SAMUELS onver arturo Transaction, Provider Unknown - 04/08/2014 1:21 PM PST Nurse Progress Note by Cheryl Rubalcava RN at 04/08/141320 Author: Cheryl Rubalcava RN Service: (none) Author Type: Registered Nurse Filed: 04/08/14 132 Date of Service: 04/08/141320 Status: Signed Manager Custom: Cheryl Rubalcava RN (Registered Nurse) Pt family called to come back to be with pt at this time. docume nted in this encounter Plan of Treatment +--------+---------+ + + + | Date | Type | Specialty | Care Team | Description | +--------+---------+ + + + | 04/18/ | Office | Pulmonology | Denny Alexander | | | 2019 | Visit | | Deny Briggs MD [address] | | | | | [address] | | | | | | [place] [address] | | | | | | [phone] | | | | | | | [...] At | + + + | DARA DANI XR C-ARM FLUORO UP TO 1 HOUR 04/08/2014 [...] | Procedure Note | + ------+ | Cedric, Rad Conversion - 10/19/2018 6:38 AM PDT DARA CULLEN C-ARM FLUORO UP TO 1 | [...] LAB | | | | Blvd;[place] [address] | | | | + + + + + + | Antibody | NEGATIVE | | EXTERNAL | | | Screen | | | LAB | | + + + + + + | Antibody | Testing performed at | | EXTERNAL | | | Screen | [facility];[address] | | LAB | | | | [address]vd;[place] [address] | | | | + + + + + + | BB BAND | [id number] | | EXTERNAL | | | | | | LAB | | + + + + + + | BB BAND | Testing performed at | | EXTERNAL | | | | [facility];[address] | | LAB | | | | Blvd;[place] [address] | | | | + + + [...] EXTERNAL | | | | performed at [facility];[address] | mmol/L | LAB | | | | [address];[place] | | | | | | [address] | | | | + + + + + + | K | 4.1Comment: SLT | 3.5 - 4.9 | EXTERNAL | | | | HEMOLYSISTesting | mmol/L | LAB | | | | performed at [facility];[address] | | | | | | [address];[place] | | | | | | [address] | | | | + + + + + + | Cl | 102Comment: Testing | 99 - 109 mmol/L | EXTERNAL | | | | performed at [facility];[address] | | LAB | | | | [address];[place] | | | | | | [address] | | | | + + + + + + | CO2 | 28Comment: Testing | 23 - 32 mmol/L | EXTERNAL | | | | performed at [facility];[address] | | LAB | | | | [address];[place] | | | | | | [address] | | | | + + + + + + | Anion Gap | 13Comment: Testing | 5 - 20 mmol/L | EXTERNAL | | | | performed at [facility];[address] | | LAB | | | | [address];[place] | | | | | | [address] | | | | + + + + + + | Glucose, | 87Comment: Testing | 65 - 99 mg/dL | EXTERNAL | | | Fasting | performed at [facility];[address] | | LAB | | | | [address];[place] | | | | | | [address] | | | | + + + + + + | BUN | 32 (H)Comment: Testing | 8 - 25 mg/dL | EXTERNAL | | | | performed at [facility];[address] | | LAB | | | | [address];[place] | | | | | | [address] | | | | + + + + + + | Creatinine | 8.68 (H)Comment: Testing | 0.50 - 1.00 | EXTERNAL | | | | performed at [facility];[address] | mg/dL | LAB | | | | [address];[place] | | | | | | [address] | | | | + + + + + + | BUN/Creatin | 4Comment: Testing | | EXTERNAL | | | ine Ratio | performed at [facility];[address] | | LAB | | | | [address];[place] | | | | | | [address] | | | | + + + + + + | Calcium | 8.8Comment: NOTE NEW | 8.5 - 10.5 | EXTERNAL | | | | REFERENCE RANGETesting | mg/dL | LAB | | | | performed at [facility];[address] | | | | | | [address];[place] | | | | | | [address] | | | | + + + + + + | Estimated | CALCULATION NOT | mL/min/1.73m2 | EXTERNAL | | | GFR | PERFORMED. RESULT NOT | | LAB | | | | VALID IF AGE LT 20 | | | | | | YEARS.Comment: Testing | | | | | | performed at [facility];[address] | | | | | | [address];[place], [place] | | | | | | [address] | | | | + + + [...]
--- OUTSIDE RECORDS SUMMARY | ~2019-03-12 | XMS | Encounter Summary ---
Demographics + + + | Address | [address] | | | [place] [address] | + + + | Home Phone [...] | | | | | [place] [address] | | + + + + + | Thania Mallory | ECON | [address] | | | | | [place] [address] | | + + + + + | Deidra Louise | ECON | [address] | | | | | [place] | | | | | [address] | | + + + + + Care Team Providers + +------+ + | Care Medical Lab Scientist Name | Role | Phone | [...] | | (HCC) [facility] | Elias | [place] | | | | | (Amelie | [address] | Mailcode: | | | | | nlein | [place], [place] | [place] | | | | | purpura) | [address] | [place] | | | | | nephritis | Phone: | [place], [place] | | | | | (HCC) | [phone] | [address] | | | | | Hemodialysis | Fax: | Phone: | | | | | status | [phone] | [phone] | | | | | ([facility]) | | Fax: | | | | | Chronic | | [phone] | | | | | kidney | | | | | | | disease, | | | | | | | stage V | | | | | | | ([facility]) | | | | | | [...] | | [facility], | [place], [place] | | | | | [place] [address] | [address] | | | | | [phone] | | | +--------+ + + + [...] Denise | | | | | | [place], [place] | | | | | | [address] | | | | | | [phone] | | | | | | | [...] | | | ([facility]) Chronic | | | | | | kidney disease, | | | | | | stage V ([facility]) | | + +------+--------+ + + documented [...] BSA | | | | | | (AIKEN Z | | | | | | [...] Interface, Cardiology Results - 01/20/2015 2:35 PM [facility] Echocardiography Laboratory | | [address] | | [place] [address] | | ; | | [id number] | | | | Transthoracic Echocardiogram Report | | | | | | NAME: DARA LOUISE Study Date: 01/20/2015 1:18:29 PM | | Order #: [id number] ACC #: [id number] | | | | | | : [...] on 01/20/2015 at 2:35:17 PM | | Secondary Special Education Teacher: YARITZA [address]LINE [address] | | | | | | cc: | | | | | | Modes utilized | | TTE 29279; Spectral Doppler 55409; Color flow Doppler 93232; | | | | | | | | Final | + + + + + + + | Performing | Address | City/State/Zipcode | Phone Number | | Organization | | | | + + + + + | [facility] | [address] | [place], [place] | | | CARDIOLOGY | [address] | [address] | | + + + + + [...] | + + + + + | [facility] | [address] | [place] [address] | | | SERVICES, SPECIAL | [address]ARK [...] + | TILA | [address] | [place] [address] | | | DIAGNOSTIC | [address] [...] + | [facility] - | [address] | [place] [address] | | | [place] | | | | + + + [...] + | [facility] - | [address] | [place] [address] | | | [place] | | | [...] + | [facility] - | [address] | [place] [address] | | | [place] | | | [...] + | [facility] - | [address] | [place] [address] | | | [place] | | | | + + + [...] by | | | | | | Echo [address] | | | | | | Pippa Drew, [facility] | | | | | | [address] | | | | | | [phone].[employer]. | | | | | | Faisal [...] [facility] | [address] | [place], [place] | | | UN[facility] INT[facility] | | [address] | | + + + + + [...] | + + + + + | [facility] - | [address] | [place] [address] | | | [place] | | | [...] by | | | | | | [address] | | | | | | [facility] | | | | | | [address] | | | | | | [phone].[employer]lab. | | | | | | Faisal [...] [facility] | [address] | [place], [place] | | | UN[facility] P[facility] INT[facility] | | [address] | | + + + + + [...] [facility] | [address] | [place] [address] | | | SERVICES, CORE | PARK [...] [facility] | [address] | [place] [address] | | | SERVICES, CORE | PARK [...] | + + + + + | [facility] | [address] | [place] [address] | | | SERVICES, CORE | PARK [...] | + + + + + | [facility] | [address] | [place] [address] | | | SERVICES, CORE | LONG [...] [facility] | [address] | [place] [address] | | | HOMERO LAN | LONG [...] | | | LABORATORY | | | UZ[facility] | | | SERVICES, | | | [...] + + + + + | [facility] | [address] | [place] [address] | | | SERVICES, CORE | LONG [...]
--- OUTSIDE RECORDS SUMMARY | ~2019-03-12 | XMS | Encounter Summary ---
Demographics + + + | Address | [address] | | | [place] [address] | + + + | Home Phone [...] | Author | [facility] | | | and Josephana | + + + | Organization | [facility] | | [...] Team Providers + +------+ + | Care Sustainability Executive Director Name | Role | Phone [...] [place]) | | | | [address] | [place] | (Primary Dx) | | | | [place], [place] | [place], [place] | | | | | [address] | [address] | | | | | [phone] | | | +--------+ + + + [...] [place] | | | | | | [place] [address] | | | | | | [phone] | | | | | | | | +--------+---------+ + + + documented as of this encounter Visit Diagnoses + + | Diagnosis | + + | ESRD (end stage renal disease) (HCC) - Primary End stage renal disease | + + documented in this encounter"
--- OUTSIDE RECORDS SUMMARY | ~2019-03-12 | XMS | Encounter Summary ---
Demographics + + + | Address | [address] | | | [place] [address] | + + + | Home Phone [...] | | | | | [place] [address] | | + + + + + | Thania Mallory | ECON | [address] | | | | | [place] [address] | | + + + + + | Deidra Weldon | ECON | [address] | | | | | [place] | | | | | [address] | | + + + + + Care Team Providers + +------+ + | Care Washing Machine Mechanic Name | Role | Phone | [...] | | | | [address] | [facility] | | | | | [address] [facility], | [place], [place] | | | | | [place] [address] | [address] | | | | | [phone] | | | +--------+ + + + [...] [place] | | | | | | [address] | | | | | | [phone] | | | | | | | | +--------+ + + + + documented as of this encounter Visit Diagnoses Not on filedocumented in this encounter"
--- OUTSIDE RECORDS SUMMARY | ~2019-03-12 | XMS | Encounter Summary ---
Demographics + + + | Address | [address] | | | [place] [address] | + + + | Home Phone [...] | | | | | [place] [address] | | + + + + + | Thania Mallory | ECON | [address] | | | | | [place] [address] | | + + + + + | Deidra Weldon | ECON | [address] | | | | | [place] | | | | | [address] | | + + + + + Care Team Providers + +------+ + | Care Typing Pool Supervisor Name | Role | Phone | [...] SSA) | | | | [address] [place], | [place], [place] | | | | | [place] [address] | [address] | | | | | [phone] | | | +--------+ + + + [...] | | | | | | [place] | | | | | | [address] | | | | | | [phone] | | | | | | | | +--------+ + + + + documented as of this encounter Visit Diagnoses Not on filedocumented in this encounter"
--- OUTSIDE RECORDS SUMMARY | ~2019-03-12 | XMS | Encounter Summary ---
Demographics + + + | Address | [address] | | | [place] [address] | + + + | Home Phone [...] + | Author | [facility] | | | and Josephana | + + + | Organization | [facility] [...] Providers + +------+ + | Care Final Block Press Operator Name | Role | Phone [...] | stage renal | [address] | [address] [place] [address] | | | | | disease) | Shun Griffin | [place] | | | | | ([facility]) | [address] | [address] [place] | | | | | Anemia in | [place], [place] | [place] | | | | | ESRD | [address] | [address] Phone: | | | | | (end-stage | Phone: | [phone] | | | | | renal | [phone] | Fax: | | | | | disease) | Fax: | [phone] | | | | | ([facility]) | [phone] | | | | | | Procedures [...] | | [address] | [place] | (Primary Dx) | | | | [place], [place] | [place], [place] | | | | | [address] | [address] | | | | | [phone] | | | +--------+ + + + [...] | | | | [place] [address] | | | | | | [phone] | | | | | | | | +--------+---------+ + + + documented as of this encounter Visit Diagnoses + + | Diagnosis | + + | ESRD (end stage renal disease) (HCC) - Primary End stage renal disease | + + documented in this encounter"
--- OUTSIDE RECORDS SUMMARY | ~2019-03-12 | XMS | Encounter Summary ---
Demographics + + + | Address | [address] | | | [place] [address] | + + + | Home Phone [...] | | | | | [place] [address] | | + + + + + | Thania Mallory | ECON | [address] | | | | | [place] [address] | | + + + + + | Deidra Weldon | ECON | [address] | | | | | [place] | | | | | [address] | | + + + + + Care Team Providers + +------+ + | Care Loft Rigger Name | Role | Phone | + +------+ + | Shahid Camargo MD | PCP | | + +------+ + Encounter Details +--------+ + + + + | Date | Type | Department | Care Team | Description | +--------+ + + + + | 12/19/ | Document-Sc | UNKNOWN DEPARTMENT | Unknown . | | | 2012 | anned | [address] | | | | | | [facility] | | | | | | [place], [place] | | | | | | [address] | | | +--------+ + + + [...] Denise | | | | | | [place], [place] | | | | | | [address] | | | | | | [phone] | | | | | | | | +--------+ + + + + documented as of this encounter Visit Diagnoses Not on filedocumented in this encounter"
--- OUTSIDE RECORDS SUMMARY | ~2019-03-12 | XMS | Encounter Summary ---
Demographics + + + | Address | [address] | | | [place] [address] | + + + | Home Phone [...] [facility] | | | and [place] | + + + | Organization | [facility] | [...] Team Providers + +------+ + | Care Game Bird Farmer Name | Role | Phone | [...] [address] | [place] [address] | | | | | [address] [place] [address] | [phone] | | | | | [address] | | | | | | [phone] | | | +--------+ + + + [...] [place] | | | | | | [place] [address] | | | | | | [phone] | | | | | | | | +--------+---------+ + + + documented as of this encounter Visit Diagnoses Not on filedocumented in this encounter"
--- OUTSIDE RECORDS SUMMARY | ~2019-03-12 | XMS | Encounter Summary ---
Demographics + + + | Address | [address] | | | [place] [address] | + + + | Home Phone [...] Author | [facility] | | | and Josephana | + + + | Organization | [facility] | [...] Team Providers + +------+ + | Care Management Nurse Rn Name | Role | Phone | [...] stage renal | [address] | [address] [place] [address] | | | | | disease) | Shun Griffin | [place] | | | | | (HCC) | [address] | [address] [place] | | | | | Anemia in | [place], [place] | [place], [place] | | | | | ESRD | [address] | [address] Phone: | | | | | (end-stage | Phone: | [phone] | | | | | renal | [phone] | Fax: | | | | | disease) | Fax: | [phone] | | | | | ([facility]) | [phone] | | | | | | Procedures | | | | | | | [place] ESRD | | | | | | [...] M, DO [address] | renal disease) ([facility]) | | | | [address] | [place], [address] | (Primary Dx) | | | | [place], [place] | [place], [place] | | | | | [address] | [address] | | | | | [phone] | | | +--------+ + + + [...] to fall on the Pars[place], IV? : [place] Fina Alonso MD, PhD documented in thi [...] | | | | | [place] [address] | | | | | | [phone] | | | | | | | | +--------+---------+ + + + documented as of this encounter Visit Diagnoses + + | Diagnosis | + + | ESRD (end stage renal disease) (HCC) - Primary End stage renal disease | + + documented in this encounter
--- OUTSIDE RECORDS SUMMARY | ~2019-03-12 | XMS | Encounter Summary ---
Demographics + + + | Address | [address] | | | [place] [address] | + + + | Home Phone [...] | | | | | [place] [address] | | + + + + + | Thania Mallory | ECON | [address] | | | | | [place] [address] | | + + + + + | Deidra Weldon | ECON | [address] | | | | | [place] | | | | | [address] | | + + + + + Care Team Providers + +------+ + | Care Vp Rheumatology Name | Role | Phone | + [...] 2005 | [address] | [address] | [phone] | | | | n | [address] Mailcode: RPB07 | | | | | | [place], [place] | | | | | | [address] | | | | | | [phone] | | | +--------+ + + + [...] Denise | | | | | | [place], [place] | | | | | | [address] | | | | | | [phone] | | | | | | | [...] | [facility] | | | PATHOLOGY | [place] [facility] | | DEPARTMENT | | [...] Garcia | | | | | | [facility], | | | | | | [place],labeled mi'kmaq | | | | | | kidney [...] number | | | | | | [id number].[facility]/lab | | | | | | Microscopic [...] wall | | | | | | [id number]: | | | | | | NegativeFibrinogen: [...] + + + + + | [facility] | [address] | [place] [address] | | | PATHOLOGY | [address] | | | + + + + + | [facility] | [address] | [place] [address] | | | PATHOLOGY | [address] | | | + + + + + documented in this encounter Visit Diagnoses Not on filedocumented in this encounter"
--- OUTSIDE RECORDS SUMMARY | ~2019-03-12 | XMS | Encounter Summary ---
Demographics + + + | Address | [address] | | | [place] [address] | + + + | Home Phone [...] + + + | Author | [facility] | | | and [place]ana | + + + | Organization | [facility] | [...] + +------+ + | Care Director Clinical Pharmacology Name | Role | Phone | + [...] stage renal | [address] | [address] [place] [address] | | | | | disease) | Shun Griffin | [place] | | | | | ([facility]) | [address] | [address] [place] | | | | | Anemia in | [place], [place] | [place] | | | | | ESRD | [address] | [address] Phone: | | | | | (end-stage | Phone: | [phone] | | | | | renal | [phone] | Fax: | | | | | disease) | Fax: | [phone] | | | | | ([facility]) | [phone] | | | | | | Procedures [...] [address] | renal disease) ([facility]) | | | | [address] | [place], [address] | (Primary Dx) | | | | [place], [place] | [place], [place] | | | | | [address] | [address] | | | | | [phone] | | | +--------+ + + + [...] parathyroidectomy she should let myself or the rn relief charge no. She will be rechecked in 2 weeks. : [place] Fina documented in t his encounter Plan [...] | | | | | | [place] [address] | | | | | | [phone] | | | | | | | | +--------+---------+ + + + documented as of this encounter Visit Diagnoses + + | Diagnosis | + + | ESRD (end stage renal disease) (HCC) - Primary End stage renal disease | + + documented in this encounter"
--- OUTSIDE RECORDS SUMMARY | ~2019-03-12 | XMS | Encounter Summary ---
Demographics + + + | Address | [address] | | | [place] [address] | + + + | Home Phone [...] | | | | | [place] [address] | | + + + + + | Thania Mallory | ECON | [address] | | | | | [place] [address] | | + + + + + | Deidra Weldon | ECON | [address] | | | | | [place] | | | | | [address] | | + + + + + Care Team Providers + +------+ + | Care Boat Detailer Name | Role | Phone | + [...] | Nephrology at | MD Emanuel [address] | Requested (UDS) | | | | [place] | [address] | | | | | [facility] | [place], [place] | | | | | [address] | [address] | | | | | Mailcode: DCH7 | [phone] | | | | | [place] | | | | | | [place], [place] | | | | | | [address] | | | | | | [phone] | | | +--------+ + + + [...] Denise | | | | | | [place], [place] | | | | | | [address] | | | | | | [phone] | | | | | | | | +--------+ + + + + documented as of this encounter Visit Diagnoses Not on filedocumented in this encounter"
--- OUTSIDE RECORDS SUMMARY | ~2019-03-12 | XMS | Encounter Summary ---
Demographics + + + | Address | [address] | | | [place] [address] | + + + | Home Phone [...] | [facility] | | | and [place]ana | + + + | Organization | [facility] | [...] Providers + +------+ + | Care Laborer Road Name | Role | Phone | + +------+ + PCP | Unavailable | + +------+ + Encounter Details +--------+ + + + + | Date | Type | Department | Care Team | Description | +--------+ + + + + | 11/21/ | Abstract | [facility] [place] | Daniela Ibarra, | | | 2016 | | NEPHROLOGY [address] | | | | | [address] | [address] [place] | | | | | [place], [place] | [place] [address] | | | | | [id number] | [phone] | | | | | [phone] | | | +--------+ + + + [...] [address] | | | | | | [place] [address] | | | | | | [phone] | | | | | | | | +--------+---------+ + + + documented as of this encounter Visit Diagnoses Not on filedocumented in this encounter"
--- OUTSIDE RECORDS SUMMARY | ~2019-03-12 | XMS | Clinical Summary ---
Demographics + + + | Address | [address] | | | [place] [address] | + + + | Home Phone [...] | Author | [facility] (Historical as of | | | 10-20-18) | + + + | Organization | [facility] (Historical as of | | | 10-20-18) [...] Team Providers + +------+ + | Care Culture Media Laboratory Assistant Name | Role | Phone | [...] | Left: | SYNOVIS | | | [id number] | | 0.8x8cm - [id number]: | | Arm | | | | [...] | | | COVIDIEN | | | [id number] | | 23cmExplanted: Qty: 1 on | | | | | | [id number] / | | 04/08/2014 | | | | | | | | | | | | | | /[id number] | | | | | | | [...] +------+-------+ + | MEDICARE | MEDICA | [id number] | | | [address] | | | RE | | | | [place], [place] [address] | | | IP-OP | | | | | + +--------+ +------+-------+ + | MEDICAID | EASTER | [id number] | | | [address] | | | N | | | | [place] | | | [place] | | | | [address] | | | DEPARTMENT MGR | | | | | + +--------+ [...] | kamron | | | [phone] | [phone] | + +--------+ +--------+ + +
--- OUTSIDE RECORDS SUMMARY | ~2019-03-12 | XMS | Encounter Summary ---
Demographics + + + | Address | [address] | | | [place] [address] | + + + | Home Phone [...] + + | Author | [facility] | | | and Josephana | + + + | Organization | [facility] [...] Team Providers + +------+ + | Care Packing Machine Tender Name | Role | Phone [...] + + | 01/07/ | Hospital | [facility] | Florian Nelson, | Hyperkalemia | | 2019 - | Encounter | [facility] | [address] | (Primary Dx); ESRD | | | | CARE FLOOR [address] | [place] [address] | needing dialysis | | 01/10/ | | [address] | [phone] | ([facility]); Acute | | 2019 | | [place], [place] | | respiratory | | | | [address] | Herccristiaan, Megan, DO | distress; Recurrent | | | | [phone] | [address] | right pleural | | | | | [place] [address] | effusion; Anemia in | | | | | [phone] | ESRD (end-stage | | | | | | renal disease) | | | | | Nicholas Sutton MD | ([facility]); At high risk | | | | | [address] | for electrolyte | | | | | [place] [address] | imbalance; Chronic | | | | | [phone] | 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 | | | | | Piedad Mosquera MD | failure ([facility]); | | | | | [address] | Dilated | | | | | [place] [address] | cardiomyopathy | | | | | [phone] | ([facility]); ESRD on | | | | | | hemodialysis ([facility]); | | | | | Paty Kline DO | Noncompliance; | | | | | [address] | Uncontrolled | | | | | [place] [address] | hypertension | | | | | [phone] | | | | | | | [...] a refill from your regular physician or coordinator skill training program. We are always happy to be a [...] the advice of your doctor or health livestock caretaker. A special MedGuide will be given to you by the pharmacist with each prescription and refill . Be sure to read this information carefully each time. Talk to your crucible furnace tender regarding the use of this medicine in children. Special care may be needed. What side effects may I notice from receiving this medicine? Side effects that you should report to your doctor or health livestock caretaker as soon as p ossible: allergic reactions [...] attention (report to your doctor or health livestock caretaker if they continue or are bothersome): dizziness [...] this medicine? Tell your doctor or health livestock caretaker if your symptoms do not start to [...] dying should be reported to your health livestock caretaker right away. NOTE:This sheet is a summary. [...] | | | | | renal disease) ([facility]) | protocol | | [...] was completed later after rounds. Dictation software, [employer], was used which may contain error for [...] Nereida Cole RN - 01/09/2019 1:30 PM [id number]- Pt c/o chest pain rated 9/10, described [...] orders at this time, however EKG ordered. operating theatre technician called and en route. 1340- EKG [...] was completed later after rounds. Dictation software, [employer], was used which may contain error for [...] Kline DO - 01/09/2019 8:20 AM PST [facility] Hospitalist Progress Note Hospital Day: 2 [...] Hyperkalemia: -Treated in the emergency room at [facility] that he had, potassium now wnl -Secondary [...] of transfusion at this time -Epogen per coordinator skill training program GI and DVT prophylaxis Paty Kline DO [...] was completed later after rounds. Dictation software, [employer], was used which may contain error for [...] DO Paty - 01/08/2019 7:50 AM PST [facility] Hospitalist Progress Note Hospital Day: 1 [...] Hyperkalemia: -Treated in the emergency room at [facility] that he had, potassium now 5.8 -Secondary [...] of transfusion at this time -Epogen per coordinator skill training program Hypoglycemia: -Likely secondary to insulin given for her hyperkalemia and decrease PO intake -Hypoglycemic protocol GI and DVT prophylaxis Paty Kline DO 01/08/2019 Piedad Vega MD - 01/07/2019 7:14 AM PST [facility]: Hospitalist Progress Note Hospital Day: LOS: 0 days SUBJECTIVE Patient Summary: From HPI Dr. Martínez 01/07/19 The patient is a 23 y.o. female with significant past medical history of HSP nephritis, rig ht pleural effusions recurrent, thoracentesis, bacteremia, clotted hemodialysis catheter, no ncompliance, asthma who presents transferred from [facility] with hyperkalemia, hyperte nsion noncompliant with hemodialysis, [...] life. Patient was treated for hyperkalemia in [facility] as her potassium was 6.8. The data from [facility] was a chest x-ray which shows motion [...] for input(s): IRON, TIBC, PCTSAT, FERRITIN, TSH, [id number], FOLATE in the last 168 hours. No [...] Hyperkalemia: -Treated in the emergency room at [facility] that he had, potassium now 5.8 -Secondary [...] of transfusion at this time -Epogen per coordinator skill training program Hypoglycemia: -Likely secondary to insulin given for [...] [address] | | | | | | [place] [address] | | | | | | [phone] | | | | | | | [...] | | | POC | performed at [facility];[address] | | LABORATORY | | | | [address];[place], [place] | | | | | | [address] | | | | + + + + + + + + | Specimen | + + | | + + + + + + + | Performing | Address | City/State/Zipcode | Phone Number | | Organization | | | | + + + + + | [facility] | [address] | [place] [address] | [phone] | + + + + + POC [...] | | | POC | performed at [facility];[address] | | LABORATORY | | | | [address];[place] | | | | | | [address] | | | | + + + + + + + + | Specimen | + + | | + + + + + + + | Performing | Address | City/State/Zipcode | Phone Number | | Organization | | | | + + + + + | [facility] | [address] | [place] [address] | [phone] | + + + + + CBC [...] MISHEL | | | | performed at [facility];[address] | | LABORATORY | | | | [address];[place], [place] | | | | | | [address] | | | | + + + + + + + + | Specimen | + + | Blood | + + + + + + + | Performing | Address | City/State/Zipcode | Phone Number | | Organization | | | | + + + + + | [facility] | [address] | [place] [address] | [phone] | + + + + + Phosphorus (01/10/2019 7:03 AM PST) + + + + + + | Component | Value | Ref Range | Performed | Pathologist | | | | | At | Signature | + + + + + + | Phosphorus | 5.4 (H)Comment: Testing | 2.3 - 4.8 mg/dL | [facility] | | | | performed at [facility];[address] | | LABORATORY | | | | [address];[place], [place] | | | | | | [address] | | | | + + + + + + + + | Specimen | + + | Blood | + + + + + + + | Performing | Address | City/State/Zipcode | Phone Number | | Organization | | | | + + + + + | [facility] | [address] | [place] [address] | [phone] | + + + + + Magnesium (01/10/2019 7:03 AM PST) + + + + + + | Component | Value | Ref Range | Performed | Pathologist | | | | | At | Signature | + + + + + + | Magnesium | 2.0Comment: Testing | 1.7 - 2.4 mg/dL | [facility] | | | | performed at [facility];[address] | | LABORATORY | | | | [address];[place] | | | | | | [address] | | | | + + + + + + + + | Specimen | + + | Blood | + + + + + + + | Performing | Address | City/State/Zipcode | Phone Number | | Organization | | | | + + + + + | [facility] | [address] | [place] [address] | [phone] | + + + + + Basic [...] | | | | | performed at [facility];[address] | | | | | | [facility];[place], [place] | | | | | | [address] | | | | + + + + + + + + | Specimen | + + | Blood | + + + + + + + | Performing | Address | City/State/Zipcode | Phone Number | | Organization | | | | + + + + + | [facility] | [address] | [place] [address] | [phone] | + + + + + POC Glucose (01/09/2019 9:10 PM PST) + + + + + + | Component | Value | Ref Range | Performed | Pathologist | | | | | At | Signature | + + + + + + | Glucose, | 141 (H)Comment: Testing | 65 - 99 mg/dL | [facility] | | | POC | performed at [facility];[address] | | LABORATORY | | | | [address];[place], [place] | | | | | | [address] | | | | + + + + + + + + | Specimen | + + | | + + + + + + + | Performing | Address | City/State/Zipcode | Phone Number | | Organization | | | | + + + + + | [facility] | [address] | [place] [address] | [phone] | + + + + + POC [...] | | | POC | performed at [facility];[address] | | LABORATORY | | | | [address];[place], [place] | | | | | | [address] | | | | + + + + + + + + | Specimen | + + | | + + + + + + + | Performing | Address | City/State/Zipcode | Phone Number | | Organization | | | | + + + + + | [facility] | [address] | [place] [address] | [phone] | + + + + + XR [...] | | PORTABLE (01/07/2019); CHEST TWO VIEWS 14998 (01/06/2019); XR CHEST AP | | | [...] PORTABLE (01/07/2019); | | CHEST TWO VIEWS 12634 (01/06/2019); XR CHEST AP PORTABLE (12/13/2018); | [...] | | | | | | ADELFO RACOS (208) on | | | | | [...] | | | POC | performed at [facility];[address] | | LABORATORY | | | | [address];[place], [place] | | | | | | [address] | | | | + + + + + + + + | Specimen | + + | | + + + + + + + | Performing | Address | City/State/Zipcode | Phone Number | | Organization | | | | + + + + + | [facility] | [address] | [place] [address] | [phone] | + + + + + Comprehensive [...] | | | | | performed at [facility];[address] | | | | | | [facility];[place], [place] | | | | | | [address] | | | | + + + + + + + + | Specimen | + + | Blood | + + + + + + + | Performing | Address | City/State/Zipcode | Phone Number | | Organization | | | | + + + + + | [facility] | [address] [facility] | [place] [address] | [phone] | + + + + + CBC [...] | | LABORATORY | | | | [address] [place] [address] | | | | | | Blvd;[place] [address] | | | | + + + + + + + + | Specimen | + + | Blood | + + + + + + + | Performing | Address | City/State/Zipcode | Phone Number | | Organization | | | | + + + + + | [facility] | [address] | [place] [address] | [phone] | + + + + + POC Glucose (01/09/2019 7:50 AM PST) + + + + + + | Component | Value | Ref Range | Performed | Pathologist | | | | | At | Signature | + + + + + + | Glucose, | 161 (H)Comment: Testing | 65 - 99 mg/dL | [facility] | | | POC | performed at [facility];[address] | | LABORATORY | | | | [address];[place] | | | | | | [address] | | | | + + + + + + + + | Specimen | + + | | + + + + + + + | Performing | Address | City/State/Zipcode | Phone Number | | Organization | | | | + + + + + | [facility] | [address] | [place] [address] | [phone] | + + + + + POC Glucose (01/09/2019 6:19 AM PST) + + + + + + | Component | Value | Ref Range | Performed | Pathologist | | | | | At | Signature | + + + + + + | Glucose, | 88Comment: Testing | 65 - 99 mg/dL | [facility] | | | POC | performed at [facility];[address] | | LABORATORY | | | | [address];[place] | | | | | | [address] | | | | + + + + + + + + | Specimen | + + | | + + + + + + + | Performing | Address | City/State/Zipcode | Phone Number | | Organization | | | | + + + + + | [facility] | [address] | [place] [address] | [phone] | + + + + + POC [...] | | | POC | performed at [facility];[address] | | LABORATORY | | | | [address];[place], [place] | | | | | | [address] | | | | + + + + + + + + | Specimen | + + | | + + + + + + + | Performing | Address | City/State/Zipcode | Phone Number | | Organization | | | | + + + + + | [facility] | [address] | [place] [address] | [phone] | + + + + + POC [...] | | | POC | performed at [facility];[address] | | LABORATORY | | | | [address];[place] | | | | | | [address] | | | | + + + + + + + + | Specimen | + + | | + + + + + + + | Performing | Address | City/State/Zipcode | Phone Number | | Organization | | | | + + + + + | [facility] | [address] | [place] [address] | [phone] | + + + + + POC Glucose (01/08/2019 12:23 PM PST) + + + + + + | Component | Value | Ref Range | Performed | Pathologist | | | | | At | Signature | + + + + + + | Glucose, | 76Comment: Testing | 65 - 99 mg/dL | [facility] | | | POC | performed at [facility];[address] | | LABORATORY | | | | [address];[place] | | | | | | [address] | | | | + + + + + + + + | Specimen | + + | | + + + + + + + | Performing | Address | City/State/Zipcode | Phone Number | | Organization | | | | + + + + + | [facility] | [address] | [place] [address] | [phone] | + + + + + POC Glucose (01/08/2019 7:35 AM PST) + + + + + + | Component | Value | Ref Range | Performed | Pathologist | | | | | At | Signature | + + + + + + | Glucose, | 74Comment: Testing | 65 - 99 mg/dL | [facility] | | | POC | performed at [facility];[address] | | LABORATORY | | | | [address];[place] | | | | | | [address] | | | | + + + + + + + + | Specimen | + + | | + + + + + + + | Performing | Address | City/State/Zipcode | Phone Number | | Organization | | | | + + + + + | [facility] | [address] | [place] [address] | [phone] | + + + + + Comprehensive [...] 6 (L)Comment: GFR <60: | >60 | [facility] | | | GFR [...] | | | | performed at [facility], [address] | | | | | | [facility], | | | | | | [place] [address] | | | | + + + + + + + + | Specimen | + + | Blood | + + + + + + + | Performing | Address | City/State/Zipcode | Phone Number | | Organization | | | | + + + + + | [facility] | [address] | [place] [address] | [phone] | + + + + + CBC [...] | | | | | [place] [address] | | | | + + + + + + + + | Specimen | + + | Blood | + + + + + + + | Performing | Address | City/State/Zipcode | Phone Number | | Organization | | | | + + + + + | [facility] | [address] | [place] [address] | [phone] | + + + + + POC Glucose (01/07/2019 9:07 PM PST) + + + + + + | Component | Value | Ref Range | Performed | Pathologist | | | | | At | Signature | + + + + + + | Glucose, | 108 (H)Comment: Testing | 65 - 99 mg/dL | [facility] | | | POC | performed at [facility];[address] | | LABORATORY | | | | [address];[place] | | | | | | [address] | | | | + + + + + + + + | Specimen | + + | | + + + + + + + | Performing | Address | City/State/Zipcode | Phone Number | | Organization | | | | + + + + + | [facility] | [address] | [place] [address] | [phone] | + + + + + POC [...] | | | POC | performed at [facility];[address] | | LABORATORY | | | | [address];[place] | | | | | | [address] | | | | + + + + + + + + | Specimen | + + | | + + + + + + + | Performing | Address | City/State/Zipcode | Phone Number | | Organization | | | | + + + + + | [facility] | [address] | [place] [address] | [phone] | + + + + + CT [...] adenopathy. Upper Abdomen: The | | | king salmon kidneys are atrophic. There is a small [...] No adenopathy. | | Upper Abdomen: The king salmon kidneys are atrophic. There is a small [...] | | | POC | performed at [facility];[address] | | LABORATORY | | | | [address];[place], [place] | | | | | | [address] | | | | + + + + + + + + | Specimen | + + | | + + + + + + + | Performing | Address | City/State/Zipcode | Phone Number | | Organization | | | | + + + + + | [facility] | [address] | [place] [address] | [phone] | + + + + + Hepatitis [...] | | LABORATORY | | | | [facility], [address] | | | | | | [place] | | | | | | [address] | | | | + + + + + + + + | Specimen | + + | Blood | + + + + + + + | Performing | Address | City/State/Zipcode | Phone Number | | Organization | | | | + + + + + | [facility] | [address] | [place] [address] | [phone] | + + + + + POC Glucose (01/07/2019 7:14 AM PST) + + + + + + | Component | Value | Ref Range | Performed | Pathologist | | | | | At | Signature | + + + + + + | Glucose, | 83Comment: Testing | 65 - 99 mg/dL | [facility] | | | POC | performed at [facility];[address] | | LABORATORY | | | | [address];[place] | | | | | | [address] | | | | + + + + + + + + | Specimen | + + | | + + + + + + + | Performing | Address | City/State/Zipcode | Phone Number | | Organization | | | | + + + + + | [facility] | [address] | [place] [address] | [phone] | + + + + + XR [...] (500), | | | | | | food editor JOSH CHAPPELL | | | | | | (3998) on 01/07/2019 | | | | | [...] | | | POC | performed at [facility];[address] | | LABORATORY | | | | [address];[place] | | | | | | [address] | | | | + + + + + + + + | Specimen | + + | | + + + + + + + | Performing | Address | City/State/Zipcode | Phone Number | | Organization | | | | + + + + + | [facility] | [address] | [place] [address] | [phone] | + + + + + POC Glucose (01/07/2019 2:08 AM PST) + + + + + + | Component | Value | Ref Range | Performed | Pathologist | | | | | At | Signature | + + + + + + | Glucose, | 67Comment: Testing | 65 - 99 mg/dL | [facility] | | | POC | performed at [facility];[address] | | LABORATORY | | | | [address];[place] | | | | | | [address] | | | | + + + + + + + + | Specimen | + + | | + + + + + + + | Performing | Address | City/State/Zipcode | Phone Number | | Organization | | | | + + + + + | [facility] | [address] | [place] [address] | [phone] | + + + + + Troponin I (01/07/2019 1:40 AM PST) + + + + + + | Component | Value | Ref Range | Performed | Pathologist | | | | | At | Signature | + + + + + + | Troponin I | 0.149 (H)Comment: 0.04 | 0.00 - 0.04 | [facility] | | | | [...] at | | | | | | [facility];[address] [place] [address] | | | | | | Blvd;[place] [address] | | | | + + + + + + + + | Specimen | + + | Blood | + + + + + + + | Performing | Address | City/State/Zipcode | Phone Number | | Organization | | | | + + + + + | [facility] | [address] | [place] [address] | [phone] | + + + + + Comprehensive [...] 38 | 10 - 65 U/L | [facility] | | | | | | LABORATORY | | + + + + + + | Estimated | 3 (L)Comment: GFR <60: | >60 | [facility] | | | GFR [...] | | | | | performed at [facility];[address] | | | | | | [facility];[place], [place] | | | | | | [address] | | | | + + + + + + + + | Specimen | + + | Blood | + + + + + + + | Performing | Address | City/State/Zipcode | Phone Number | | Organization | | | | + + + + + | [facility] | [address] | [place] [address] | [phone] | + + + + + CBC [...] | | | | | | at [facility];[address] [place] [address] | | | | | | Blvd;[place] [address] | | | | | |NORMAL PLT MORPH | | | | | |Testing performed at [facility];[address] [place] [address];[place] [address] | | | | | | | | | | + + + + + + + + | Specimen | + + | Blood | + + + + + + + | Performing | Address | City/State/Zipcode | Phone Number | | Organization | | | | + + + + + | [facility] | [address] | [place] [address] | [phone] | + + + + + Thoracentesis [...] space: 6th Puncture method: | | | jcvf-nvp-snjoto catheter Needle size: 18 Catheter size: 18 [...] | Anemia in ESRD (end-stage renal disease) ([facility]) Anemia in chronic kidney disease | + + | At high risk for electrolyte imbalance | + + | Chronic combined systolic and diastolic heart failure ([facility]) Chronic combined systolic | | and diastolic heart failure | + + | Dilated cardiomyopathy ([facility]) Other primary cardiomyopathies | + + | ESRD on hemodialysis ([facility]) End stage renal disease | [...] anxiety with hemodialysis, | | | Starting [facility] 01/10/19 at 0952 | | + [...]
--- OUTSIDE RECORDS SUMMARY | ~2019-03-12 | XMS | Encounter Summary ---
Demographics + + + | Address | [address] | | | [place] [address] | + + + | Home Phone [...] | | | | | [place] [address] | | + + + + + | Thania Mallory | ECON | [address] | | | | | [place] [address] | | + + + + + | Deidra Weldon | ECON | [address] | | | | | [place] | | | | | [address] | | + + + + + Care Team Providers + +------+ + | Care Private Detective Name | Role | Phone | + [...] Nephrology at | MD Emanuel [address] [facility] | | | | | [place] | [facility] | | | | | [facility] | [place], [place] | | | | | [address] | [address] | | | | | Mailcode: [id number] | [phone] | | | | | [place] | | | | | | [place], [place] | | | | | | [address] | | | | | | [phone] | | | +--------+ + + + [...] Ave | | | | | | [place], [place] | | | | | | [address] | | | | | | [phone] | | | | | | | [...] [address] | [place] [address] | [phone] | | HOSPITAL | | | | [...] | [address] | [place] [address] | [phone] | | HOSPITAL | | | | + + + + + documented in this encounter Visit Diagnoses Not on filedocumented in this encounter"
--- OUTSIDE RECORDS SUMMARY | ~2019-03-12 | XMS | Encounter Summary ---
Demographics + + + | Address | [address] | | | [place] [address] | + + + | Home Phone [...] | | | | | [place] [address] | | + + + + + | Thania Mallory | ECON | [address] | | | | | [place] [address] | | + + + + + | Deidra Weldon | ECON | [address] | | | | | [place] | | | | | [address] | | + + + + + Care Team Providers + +------+ + | Care Ship Wirer Name | Role | Phone | [...] ANNALISA Griffin | [facility] | recommendations) | | | | Caro Chan [place], | [place], [place] | | | | | [place] [address] | [address] | | | | | [phone] | | | +--------+ + + + [...] Denise | | | | | | [place] | | | | | | [address] | | | | | | [phone] | | | | | | | | +--------+ + + + + documented as of this encounter Visit Diagnoses Not on filedocumented in this encounter"
--- OUTSIDE RECORDS SUMMARY | ~2019-03-12 | XMS | Encounter Summary ---
Demographics + + + | Address | [address] | | | [place] [address] | + + + | Home Phone [...] | | | | | [place] [address] | | + + + + + | Thania Mallory | ECON | [address] | | | | | [place] [address] | | + + + + + | Deidra Weldon | ECON | [address] | | | | | [place] | | | | | [address] | | + + + + + Care Team Providers + +------+ + | Care Supply Specialist Name | Role | Phone | + +------+ + | Shahid Camargo MD | PCP | | + +------+ + Encounter Details +--------+ + + + + | Date | Type | Department | Care Team | Description | +--------+ + + + + | 12/20/ | Hospital | Radiology at [facility] | | | | 2012 | Encounter | [address] | | | | | | Mailcode: L[address] | | | | | | [place] | | | | | | [place], [place] | | | | | | [address] | | | | | | [phone] | | | +--------+ + + + [...] [place] | | | | | | [address] | | | | | | [phone] | | | | | | | [...] | e | 9:29 AM | MEDICARE [phone] | procedure are in the | | [...]
--- OUTSIDE RECORDS SUMMARY | ~2019-03-12 | XMS | Encounter Summary ---
Demographics + + + | Address | [address] | | | [place] [address] | + + + | Home Phone [...] | | | | | [place] [address] | | + + + + + | Thania Mallory | ECON | [address] | | | | | [place] [address] | | + + + + + | Deidra Weldon | ECON | [address] | | | | | [place] | | | | | [address] | | + + + + + Care Team Providers + +------+ + | Care Cabin Cleaner Name | Role | Phone | + +------+ + | Shahid Camargo MD | PCP | | + +------+ + Encounter Details +--------+ + + + + | Date | Type | Department | Care Team | Description | +--------+ + + + + | 12/20/ | Hospital | Radiology at [facility] | | | | 2012 | Encounter | [address] | | | | | | Mailcode: [address] | | | | | | [place] | | | | | | [place], [place] | | | | | | [address] | | | | | | [phone] | | | +--------+ + + + [...] Denise | | | | | | [place], [place] | | | | | | [address] | | | | | | [phone] | | | | | | | [...] | e | 9:29 AM | MEDICARE 8218 | procedure are in the | | [...]
--- OUTSIDE RECORDS SUMMARY | ~2019-03-12 | XMS | Encounter Summary ---
Demographics + + + | Address | [address] | | | [place] [address] | + + + | Home Phone [...] | | | | | [place] [address] | | + + + + + | Thania Mallory | ECON | [address] | | | | | [place] [address] | | + + + + + | Deidra Weldon | ECON | [address] | | | | | [place] | | | | | [address] | | + + + + + Care Team Providers + +------+ + | Care Firer Bisque Kiln Name | Role | Phone | + [...] | | | | [address] | [facility] | | | | | Caro Chan [place], | [place], [place] | | | | | [place] [address] | [address] | | | | | [phone] | | | +--------+ + + + [...] Denise | | | | | | [place] | | | | | | [address] | | | | | | [phone] | | | | | | | | +--------+ + + + + documented as of this encounter Visit Diagnoses Not on filedocumented in this encounter"
--- OUTSIDE RECORDS SUMMARY | ~2019-03-12 | XMS | Encounter Summary ---
Demographics + + + | Address | [address] | | | [place] [address] | + + + | Home Phone [...] + | Author | [facility] | | | and [place]ana | + + + | Organization | [facility] | | [...] Team Providers + +------+ + | Care Produce Department Supervisor Name | Role | Phone | + +------+ + PCP | Unavailable | + +------+ + Encounter Details +--------+ + + + + | Date | Type | Department | Care Team | Description | +--------+ + + + + | 08/12/ | Hospital | [facility] | Conversion | ESRD (end stage | | 2016 | Encounter | CENTER CV INTRA OP | Transaction, | renal disease) | | | | [address] | Provider Unknown | ([facility]); ESRD on | | | | [place], [place] | | hemodialysis ([facility]) | | | | [address] | (Fax) | | | | | [phone] | Doyle Diaz MD | | +--------+ [...] 08/13/151114 Date of Service: 08/13/151114 Status: Signed Liaison Officer: Taylor Acuna RN (Registered Nurse) Pt discharged [...] DAVIDSON | | | | | | [place] [address] | | | | | | [phone] | | | | | | | [...] ANGIOPLASTY AV FISTULA VENOUS | | | SECTION BEAMER: Doyle Diaz MD CONSENT: The risks, benefits [...] guidewire combination, a 4 | | | Faroese angled catheter was advanced and positioned into [...] a | | | guidewire, a 6 Faroese sheath was advanced and positioned into the [...] a | | | guidewire, a 7 Faroese sheath was advanced and positioned into the [...] IR ANGIOPLASTY | | AV FISTULA VENOUS SECTION BEAMER: Doyle Diaz MD CONSENT: The risks, benefits [...] catheter guidewire combination, a | | 4 Faroese angled catheter was advanced and positioned into [...] | | ANGIOPLASTY:Over a guidewire, a 6 Faroese sheath was advanced and positioned into the [...] Over | | a guidewire, a 7 Faroese sheath was advanced and positioned into the [...] ANGIOPLASTY AV FISTULA VENOUS | | | SECTION BEAMER: Doyle Diaz MD CONSENT: The risks, benefits [...] guidewire combination, a 4 | | | Faroese angled catheter was advanced and positioned into [...] a | | | guidewire, a 6 Faroese sheath was advanced and positioned into the [...] a | | | guidewire, a 7 Faroese sheath was advanced and positioned into the [...] IR ANGIOPLASTY | | AV FISTULA VENOUS SECTION BEAMER: Doyle Diaz MD CONSENT: The risks, benefits [...] catheter guidewire combination, a | | 4 Faroese angled catheter was advanced and positioned into [...] | | ANGIOPLASTY:Over a guidewire, a 6 Faroese sheath was advanced and positioned into the [...] Over | | a guidewire, a 7 Faroese sheath was advanced and positioned into the [...] Steele Conversion - 10/18/2018 9:20 PM PDT This Point [...] LAB | | | | performed at [facility];[address] | | | | | | [facility];[place], [place] | | | | | | [address] | | | | + + + [...]
--- OUTSIDE RECORDS SUMMARY | ~2019-03-12 | XMS | Encounter Summary ---
Demographics + + + | Address | [address] | | | [place] [address] | + + + | Home Phone [...] + | Cory Weldon | ECON | [address] | | | | | [place] [address] | | + + + + + | Thania Mallory | ECON | [address] | | | | | [place] [address] | | + + + + + | Deidra Weldon | ECON | [address] | | | | | [place] | | | | | [address] | | + + + + + Care Team Providers + +------+ + | Care General Office Associate Name | Role | Phone | [...] | | | | | Caro [address] [place], | | | | | | [place] [address] | | | +--------+ + + + [...] Denise | | | | | | [place], [place] | | | | | | [address] | | | | | | [phone] | | | | | | | [...] DANILO - | [address] | [place] [address] | | | IMMUNOGENETICS/TRANS | [address] | | | | PLANT LAB[facility]ATORY | | | | + + + + + documented in this encounter Visit Diagnoses + + | Diagnosis | + + | End stage renal disease (HCC) End stage renal disease | + + documented in this encounter"
--- OUTSIDE RECORDS SUMMARY | ~2019-03-12 | XMS | Encounter Summary ---
Demographics + + + | Address | [address] | | | [place] [address] | + + + | Home Phone [...] | | | | | [place] [address] | | + + + + + | Thania Mallory | ECON | [address] | | | | | [place] [address] | | + + + + + | Deidra Weldon | ECON | [address] | | | | | [place] | | | | | [address] | | + + + + + Care Team Providers + +------+ + | Care Electromedical Service Engineer Name | Role | Phone | [...] | [address] | Caro [address] [place], | | | | | Car[place], | [place] [address] | | | | | [place] [address] | | | | | | [phone] | | | +--------+ + + + [...] Denise | | | | | | [place] | | | | | | [address] | | | | | | [phone] | | | | | | | | +--------+ + + + + documented as of this encounter Visit Diagnoses Not on filedocumented in this encounter"
--- OUTSIDE RECORDS SUMMARY | ~2019-03-12 | XMS | Encounter Summary ---
Demographics + + + | Address | [address] | | | [place] [address] | + + + | Home Phone [...] Author | [facility] | | | and Josephana | + + + | Organization | [facility] | [...] Providers + +------+ + | Care Supervisor Pipeline Maintenance Name | Role | Phone | + +------+ + PCP | Unavailable | + +------+ + Encounter Details +--------+ + + + + | Date | Type | Department | Care Team | Description | +--------+ + + + + | 05/14/ | Hospital | [facility] | Michelle Benitez, | | | 2008 | Encounter | HOSPITAL EMERGENCY | [address] | | | | | C[address] | [place], [place] | | | | | [place], [place] | [address] | | | | | [address] | [phone] | | | | | [phone] | | | +--------+ + + + [...] DAVIDSON | | | | | | [place] [address] | | | | | | [phone] | | | | | | | | +--------+---------+ + + + documented as of this encounter Visit Diagnoses Not on filedocumented in this encounter"
--- OUTSIDE RECORDS SUMMARY | ~2019-03-12 | XMS | Encounter Summary ---
Demographics + + + | Address | [address] | | | [place] [address] | + + + | Home Phone [...] + + | Author | [facility] | | | and [place]ana | + + + | Organization | [facility] | [...] Providers + +------+ + | Care Manager Product Marketing Name | Role | Phone | [...] NEPHROLOGY [address] | MD [address] | intermittent, | | | | [address] | [address] [place] | uncomplicated | | | | [place], [place] | [place] [address] | (Primary Dx) | | | | [address] | [phone] | | | | | [phone] | | | +--------+ + + + [...] DAVIDSON | | | | | | [place] [address] | | | | | | [phone] | | | | | | | | +--------+---------+ + + + documented as of this encounter Visit Diagnoses + + | Diagnosis | + + | Asthma, mild intermittent, uncomplicated - Primary | + + documented in this encounter"
--- OUTSIDE RECORDS SUMMARY | ~2019-03-12 | XMS | Encounter Summary ---
Demographics + + + | Address | [address] | | | [place] [address] | + + + | Home Phone [...] + + | Author | [facility] | | | and Josephana | + + + | Organization | [facility] [...] Team Providers + +------+ + | Care Door To Door Lead Generation Name | Role | Phone | + [...] | | | | [address] | [place], [place] | [place], [place] | | | | | stage renal | [address] | [address] Phone: | | | | | disease | Phone: | [phone] | | | | | ([facility]) | [phone] | Fax: | | | | | Infection | Fax: | [phone] | | | | | and | [phone] | | | | | | inflammatory | | | | | | | reaction | | | | | | | due to | | | | | | | peritoneal | | | | | | | dialysis | | | | | | | catheter | | | | | | | Procedures | | | | | | | [place] OFFICE | | | | | | [...] | | [address] | [place], [address] | (Primary Dx); | | | | [place], [place] | [place], [place] | Anemia in ESRD | | | | [address] | [address] | (end-stage renal | | | | [phone] | | disease) ([facility]) | +--------+ + [...] that she is working very closely with [facility] for 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 [...] excellent candidate from her visits here at [facility]. 6. Anemia--Will need to hold the EPO until the Hb is < 11.0 g/dl, while rechecking the Hb weekly. Plan: 1. Will continue to follow her PTH quarterly without Hectorol Rx. 2. Hold the EPO as above, until the Hb is < 11.0 g/dl. 3. Will try to connect with her Transplant Finish Opener at [facility], about re lative timeline of her allograft date. 4. She will follow with Dr. Ibarra in 2 weeks. CC: [place] Fina Joy MD, [facility], [facility] documented in thi s encounter Plan [...] DAVIDSON | | | | | | [place] [address] | | | | | | [phone] | | | | | | | [...]
--- OUTSIDE RECORDS SUMMARY | ~2019-03-12 | XMS | Encounter Summary ---
Demographics + + + | Address | [address] | | | [place] [address] | + + + | Home Phone [...] | Author | [facility] | | | and [place]ana | + + + | Organization | [facility] | | [...] Team Providers + +------+ + | Care Kieselguhr Regenerator Operator Name | Role | Phone | [...] | | [address] | [place], [address] | | | | | [place], [place] | [place], [place] | | | | | [address] | [address] | | | | | [phone] | | | +--------+--------+ + + + [...] DAVIDSON | | | | | | [place] [address] | | | | | | [phone] | | | | | | | | +--------+---------+ + + + documented as of this encounter Visit Diagnoses Not on filedocumented in this encounter"
--- OUTSIDE RECORDS SUMMARY | ~2019-03-12 | XMS | Encounter Summary ---
Demographics + + + | Address | [address] | | | [place] [address] | + + + | Home Phone [...] Author | [facility] | | | and [place]ana | + + + | Organization | [facility] | | [...] Providers + +------+ + | Care Public Relations Consultant Name | Role | Phone | [...] | | | [address] [place] | [place] [address] | | | | | [place], [place] | [phone] | | | | | [address] | | | | | | [phone] | | | +--------+ + + + [...] DAVIDSON | | | | | | [place] [address] | | | | | | [phone] | | | | | | | | +--------+---------+ + + + documented as of this encounter Visit Diagnoses Not on filedocumented in this encounter"
--- OUTSIDE RECORDS SUMMARY | ~2019-03-12 | XMS | Encounter Summary ---
Demographics + + + | Address | [address] | | | [place] [address] | + + + | Home Phone [...] | | | | | [place] [address] | | + + + + + | Thania Mallory | ECON | [address] | | | | | [place] [address] | | + + + + + | Deidra Weldon | ECON | [address] | | | | | [place] | | | | | [address] | | + + + + + Care Team Providers + +------+ + | Care Messenger Copy Name | Role | Phone | + [...] [address] | [address] | Update ([address] | | | | [address] | [address] | clinic check-in) | | | | Dea Jane | [place], [place] | | | | | [place], [place] | [address] | | | | | [address] | | | | | | [phone] | | | +--------+ + + + [...] Denise | | | | | | [place] | | | | | | [address] | | | | | | [phone] | | | | | | | | +--------+ + + + + documented as of this encounter Visit Diagnoses Not on filedocumented in this encounter"
--- OUTSIDE RECORDS SUMMARY | ~2019-03-12 | XMS | Encounter Summary ---
Demographics + + + | Address | [address] | | | [place] [address] | + + + | Home Phone [...] | | | | | [place] [address] | | + + + + + | Thania Mallory | ECON | [address] | | | | | [place] [address] | | + + + + + | Deidra Weldon | ECON | [address] | | | | | [place] | | | | | [address] | | + + + + + Care Team Providers + +------+ + | Care Assistant Professor Name | Role | Phone | + +------+ + PCP | Unavailable | + +------+ + Reason for Visit + + + | Reason | Comments | + + + | Transplant Form | filter worker 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 | | Update | [...] dates | | | | Caro [address] [place], | [place], [place] | updated) | | | | [place] [address] | [address] | | | | | [phone] | [phone] | | | | | | | [...] Denise | | | | | | [place], [place] | | | | | | [address] | | | | | | [phone] | | | | | | | | +--------+ + + + + documented as of this encounter Visit Diagnoses Not on filedocumented in this encounter"
--- OUTSIDE RECORDS SUMMARY | ~2019-03-12 | XMS | Encounter Summary ---
Demographics + + + | Address | [address] | | | [place] [address] | + + + | Home Phone [...] | Author | [facility] | | | and Josephana | + + + | Organization | [facility] | | [...] Providers + +------+ + | Care Medical Sales Associate Name | Role | Phone [...] NEPHROLOGY [address] | MD [address] | (Asymptomatic) | | | | [address] | [address] [place] | | | | | [place], [place] | [place] [address] | | | | | [address] | [phone] | | | | | [phone] | | | +--------+ + + + [...] 3:01 PM PDTHemodialysis progress note e-faxed to [facility] [place], Lianna Joy MD, [facility] Renal Transplant [facility] on 11/29/13.Electronical ly signed by Marilyn Palumbo at 11/29/2013 3:02 PM Daniela Marquez MD - 11/22/2013 11 :03 AM PDT Comprehensive Dialysis Monthly Note Date of visit: 11/22/2013 Dialysis Clinic: [facility] Mode of dialysis: Hemodialysis Dialysis prescription: MWF, [facility] Oct 2013 by pediatric dentist. Peritonitis, dialysis-associated (HCC) 07/29/2013 Note Last Updated: 07/29/2013 Due to MSSA. Had tunneled infection as well. PD catheter removed in July 2013. On Keflex till 08/01/13. History of Henoch-Schonlein purpura Note Last Updated: 07/29/2013 Diagnosed at age 10[address] Joy, pediatric dentist. 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 -per [facility] transplant, AVF is not recommended at this [...] donor. Pt has been referred to [facility] in Oct [address] Joy. -followed up with [facility], [facility] [...] DAV[place] | | | | | | [place] [address] | | | | | | [phone] | | | | | | | [...]
--- OUTSIDE RECORDS SUMMARY | ~2019-03-12 | XMS | Encounter Summary ---
Demographics + + + | Address | [address] | | | [place] [address] | + + + | Home Phone [...] + | Author | [facility] | | | and Josephana | + + + | Organization | [facility] | [...] Team Providers + +------+ + | Care Elevator Mechanic Name | Role | Phone | [...] NEPHROLOGY [address] | M, DO [address] [place] | | | | | [address] | [place], [address] | | | | | [place], [place] | [place], [place] | | | | | [address] | [address] | | | | | [phone] | | | +--------+ + + + [...] [address] | | | | | | KATHAY DAV[address] | | | | | | [place] [address] | | | | | | [phone] | | | | | | | | +--------+---------+ + + + documented as of this encounter Visit Diagnoses Not on filedocumented in this encounter"
--- OUTSIDE RECORDS SUMMARY | ~2019-03-12 | XMS | Encounter Summary ---
Demographics + + + | Address | [address] | | | [place] [address] | + + + | Home Phone [...] | | | | | [place] [address] | | + + + + + | Thania Mallory | ECON | [address] | | | | | [place] [address] | | + + + + + | Deidra Weldon | ECON | [address] | | | | | [place] | | | | | [address] | | + + + + + Care Team Providers + +------+ + | Care Knuckle Bender Name | Role | Phone | [...] | | | [address] | [facility] | | | | | [place], | [place], [place] | | | | | [place] [address] | [address] | | | | | [phone] | | | +--------+ + + + [...] Denise | | | | | | [place] | | | | | | [address] | | | | | | [phone] | | | | | | | | +--------+ + + + + documented as of this encounter Visit Diagnoses Not on filedocumented in this encounter"
--- OUTSIDE RECORDS SUMMARY | ~2019-03-12 | XMS | Encounter Summary ---
Demographics + + + | Address | [address] | | | [place] [address] | + + + | Home Phone [...] | Author | [facility] | | | and Josephana | + + + | Organization | [facility] | | | and Josephana [...] Providers + +------+ + | Care Drier Operator Name | Role | Phone | [...] NEPHROLOGY [address] | MD [address] | | | | | [address] | [address] [place] | | | | | [place], [place] | [place] [address] | | | | | [address] | [phone] | | | | | [phone] | | | +--------+ + + + [...] DAVIDSON | | | | | | [place] [address] | | | | | | [phone] | | | | | | | | +--------+---------+ + + + documented as of this encounter Visit Diagnoses Not on filedocumented in this encounter"
--- OUTSIDE RECORDS SUMMARY | ~2019-03-12 | XMS | Encounter Summary ---
Demographics + + + | Address | [address] | | | [place] [address] | + + + | Home Phone [...] | | | | | [place] [address] | | + + + + + | Thania Mallory | ECON | [address] | | | | | [place] [address] | | + + + + + | Deidra Weldon | ECON | [address] | | | | | [place] | | | | | [address] | | + + + + + Care Team Providers + +------+ + | Care Melangeur Operator Name | Role | Phone | [...] | | | | | [address] [place], | | | | | | [place] [address] | | | +--------+ + + + [...] Denise | | | | | | [place], [place] | | | | | | [address] | | | | | | [phone] | | | | | | | [...] DANILO - | [address], | [place] [address] | | | IMMUNOGENETICS/TRANS | [address] | | | | PLANT LABORATORY | | | | + + + + + documented in this encounter Visit Diagnoses Not on filedocumented in this encounter"
--- OUTSIDE RECORDS SUMMARY | ~2019-03-12 | XMS | Encounter Summary ---
[...] | [facility] | | | and Josephana | + + + | Organization | [facility] | [...] Team Providers + +------+ + | Care Chauffeur Name | Role | Phone | + [...] DO [address] | renal disease) ([facility]) | | | | [address] | [place], [address] | (Primary Dx) | | | | [place], [place] | [place], [place] | | | | | [address] | [address] | | | | | [phone] | | | +--------+ + + + [...] DAVIDSON | | | | | | [place] [address] | | | | | | [phone] | | | | | | | | +--------+---------+ + + + documented as of this encounter Visit Diagnoses + + | Diagnosis | + + | ESRD (end stage renal disease) (HCC) - Primary End stage renal disease | + + documented in this encounter"
--- OUTSIDE RECORDS SUMMARY | ~2019-03-12 | XMS | Encounter Summary ---
Demographics + + + | Address | [address] | | | [place] [address] | + + + | Home Phone [...] | | | | | [place] [address] | | + + + + + | Thania Mallory | ECON | [address] | | | | | [place] [address] | | + + + + + | Deidra Weldon | ECON | [address] | | | | | [place] | | | | | [address] | | + + + + + Care Team Providers + +------+ + | Care Apple Press Operator Name | Role | Phone [...] Transplant Services | RN [address] [facility] | list) | | | | [address] [place] | [facility] | | | | | Caro [facility], | [place], [place] | | | | | [place] [address] | [address] | | | | | [phone] | | | +--------+ + + + [...] Denise | | | | | | [place], [place] | | | | | | [address] | | | | | | [phone] | | | | | | | | +--------+ + + + + documented as of this encounter Visit Diagnoses Not on filedocumented in this encounter"
--- OUTSIDE RECORDS SUMMARY | ~2019-03-12 | XMS | Encounter Summary ---
Demographics + + + | Address | [address] | | | [place] [address] | + + + | Home Phone [...] + | Author | [facility] | | | and Josephana | + + + | Organization | [facility] | | | and [...] Team Providers + +------+ + | Care Rehab Manager Name | Role | Phone | [...] NEPHROLOGY [address] | M, DO [address] [place] | | | | | [address] | [place] | | | | | [place], [place] | [place], [place] | | | | | [address] | [address] | | | | | [phone] | | | +--------+ + + + [...] DAV[place]SON | | | | | | [place] [address] | | | | | | [phone] | | | | | | | | +--------+---------+ + + + documented as of this encounter Visit Diagnoses Not on filedocumented in this encounter"
--- OUTSIDE RECORDS SUMMARY | ~2019-03-12 | XMS | Encounter Summary ---
Demographics + + + | Address | [address] | | | [place] [address] | + + + | Home Phone [...] Author | [facility] | | | and Josephana | + + + | Organization | [facility] | | [...] Team Providers + +------+ + | Care Stock Preparation Operator Name | Role | Phone | [...] [place] | | | | | [place] | [place] [address] | | | | | [address] | [phone] | | | | | [phone] | | | +--------+ + + + [...] | | | | | [place] [address] | | | | | | [phone] | | | | | | | [...] 0.39 m/s | | | MV Dec Kimble: 9.46 m/s2 MV DecT: 106.01 ms MV E Shahid: 1.00 | | | m/s MV E/A Ratio: 2.54 E/E' Sept: 23.82 E' Lat: 0.08 m/s | | | E' Sept: 0.04 m/s RAP: 15 mmHg RV S': 0.11 m/s RVSP: | | | 67.64 mmHg TR maxP.64 mmHg TR Vmax: 3.61 m/s | | | Coining Press Operator: Authenticated by: René Noonan MD Report Date/Time: | | | -- [id number]:15:25 | | + + + + + [...] (A-L): 31.60 | | ml/m2LAAs A2C: 18.56 [id number] A-L A2C: 58.49 mlLAESV MOD A2C: 54.57 mlLALs A2C: | | 5.00 cmLAAs A4C: 17.96 [id number] A-L A4C: 52.99 mlLAESV MOD A4C: 44.93 mlLALs A4C: | | 5.18 cmLAESV(MOD BP): 49.83 mlRAAs: 18.33 [id number] A-L: 57.01 mlRAESV MOD: | | 56.24 mlRALs: 5.02 cmTAPSE: 1.98 cmAV Env.Ti: 227.35 msAV maxP.22 mmHgAV | | meanP.25 mmHgAV Vmax: 1.59 m/Elizabeth Vmean: 1.06 m/Elizabeth VTI: 24.30 cmAVA Vmax: | | 2.68 cm2AVA (VTI): 2.73 [id number] Vmax: 0.00 cm2/m2AVAI (VTI): 0.00 cm2/m2LVOT | | Env.Ti: 210.72 msLVOT maxP.99 mmHgLVOT meanP.87 mmHgLVSI Dopp: 37.17 | | ml/m2LVSV Dopp: 66.54 mlLVOT Vmax: 1.41 m/sLVOT Vmean: 1.03 m/sLVOT VTI: 21.88 | | cmMV A Shahid: 0.39 m/sMV Dec Kimble: 9.46 m/s2MV DecT: 106.01 msMV E Shahid: 1.00 | | m/sMV E/A Ratio: 2.54E/E' Sept: 23.82E' Lat: 0.08 m/sE' Sept: 0.04 m/sRAP: 15 | | mmHgRV S': 0.11 m/sRVSP: 67.64 mmHgTR maxP.64 mmHgTR Vmax: 3.61 m/s | | Coining Press Operator:Authenticated by: René Noonan MDReport Date/Time: -- [id number]:15:25 | | IMPRESSION: 1. Overall left ventricular [...] A Shahid: 0.39 m/s | |MV Dec Kimble: 9.46 m/s2 | |MV DecT: 106.01 ms | |MV E Shahid: 1.00 m/s | |MV E/A Ratio: 2.54 | |E/E' Sept: 23.82 | |E' Lat: 0.08 m/s | |E' Sept: 0.04 m/s | |RAP: 15 mmHg | |RV S': 0.11 m/s | |RVSP: 67.64 mmHg | |TR maxP.64 mmHg | |TR Vmax: 3.61 m/s | | | |Coining Press Operator: | |Authenticated by: René Noonan MD | |Report Date/Time: -- [id number]:15:25 | | | |IMPRESSION: | |1. Overall [...]
--- OUTSIDE RECORDS SUMMARY | ~2019-03-12 | XMS | Encounter Summary ---
Demographics + + + | Address | [address] | | | [place] [address] | + + + | Home Phone [...] | | | | | [place] [address] | | + + + + + | Thania Mallory | ECON | [address] | | | | | [place] [address] | | + + + + + | Deidra Weldon | ECON | [address] | | | | | [place] | | | | | [address] | | + + + + + Care Team Providers + +------+ + | Care Laboratory Machinist Name | Role | Phone | [...] | | | | [address] [place] | [facility] | | | | | Park [facility], | [place], [place] | | | | | [place] [address] | [address] | | | | | [phone] | | | +--------+ + + + [...] Denise | | | | | | [place], [place] | | | | | | [address] | | | | | | [phone] | | | | | | | | +--------+ + + + + documented as of this encounter Visit Diagnoses Not on filedocumented in this encounter"
--- OUTSIDE RECORDS SUMMARY | ~2019-03-12 | XMS | Encounter Summary ---
Demographics + + + | Address | [address] | | | [place] [address] | + + + | Home Phone [...] | | | | | [place] [address] | | + + + + + | Thania Mallory | ECON | [address] | | | | | [place] [address] | | + + + + + | Deidra Weldon | ECON | [address] | | | | | [place] | | | | | [address] | | + + + + + Care Team Providers + +------+ + | Care Senior Microsoft Consultant Name | Role | Phone | [...] | | | Hospital | [facility] | | | | | | [address] | [place] | | | | | | [address] | [place], [place] | | | | | | [place] | [address] | | | | | | [place] | Phone: | | | | | | [address] | [phone] | | | | | | Phone: | | | | | | | [phone] | | | | | | | Fax: | | | | | | | [phone] | | +--------+--------+ + + + + Encounter Details +--------+---------+ + + + | Date | Type | Department | Care Team | Description | +--------+---------+ + + + | 05/24/ | Office | Specialty Clinics | Sudhakar Joy | HSP | | 2017 | Visit | at [facility] [address] | MD Emanuel [address] | (David | | | | [address] Mailcode: | [address] | purpura) nephritis | | | | [facility] ernbadriana | [place], [place] | (Primary Dx); Anemia | | | | [place], [place] | [address] | of chronic kidney | | | | [address] | [phone] | failure, stage 5 | | | | [phone] | | (HCC) | +--------+---------+ + + [...] not be referred for transplant. Her adult sales coordinator could refer her to adult transplant when [...] Hospital, [facility] Mail code [facility] [place], [place] [address] documented in this encounter Plan of Treatment +--------+ + + + + | Date | Type | Specialty | Care Team | Description | +--------+ + + + + | 05/04/ | [facility] | Adult Acute Care | El Starr MD | | | 2022 | Encounter | | [address] | | | | | | [place], [place] | | | | | | [address] | | | | | | [phone] | | | | | | | [...]
--- OUTSIDE RECORDS SUMMARY | ~2019-03-12 | XMS | Encounter Summary ---
Demographics + + + | Address | [address] | | | [place] [address] | + + + | Home Phone [...] Author | [facility] | | | and Josephana | + + + | Organization | [facility] [...] Providers + +------+ + | Care Evp Marketing Name | Role | Phone | + +------+ + PCP | Unavailable | + +------+ + Encounter Details +--------+ + + + + | Date | Type | Department | Care Team | Description | +--------+ + + + + | 04/30/ | Hospital | [facility] GENERIC OP | Sudhakar Joy | | | 2010 | Encounter | JOY | MD Emanuel [address] | | | | | [address] | [facility] | | | | | [address] | [place], [place] | | | | | [place], [place] | [address] | | | | | [address] | [phone] | | | | | [phone] | | | +--------+ + + + [...] DAVIDSON | | | | | | [place] [address] | | | | | | [phone] | | | | | | | | +--------+---------+ + + + documented as of this encounter Visit Diagnoses Not on filedocumented in this encounter"
--- OUTSIDE RECORDS SUMMARY | ~2019-03-12 | XMS | Encounter Summary ---
Demographics + + + | Address | [address] | | | [place] [address] | + + + | Home Phone [...] | | | | | [place] [address] | | + + + + + | Thania Mallory | ECON | [address] | | | | | [place] [address] | | + + + + + | Deidra Weldon | ECON | [address] | | | | | [place] | | | | | [address] | | + + + + + Care Team Providers + +------+ + | Care Glass Deposition Tender Name | Role | Phone | [...] | | | | | [address] [place], | [place], [place] | | | | | [place] [address] | [address] | | | | | [phone] | | | +--------+ + + + [...] | | | | | | [place], [place] | | | | | | [address] | | | | | | [phone] | | | | | | | [...] + + | [facility] - | [address] | [place] | [phone] | | [place] | | | | + + + + + documented in this encounter Visit Diagnoses Not on filedocumented in this encounter"
--- OUTSIDE RECORDS SUMMARY | ~2019-03-12 | XMS | Encounter Summary ---
Demographics + + + | Address | [address] | | | [place] [address] | + + + | Home Phone [...] | | | | | [place] [address] | | + + + + + | Thania Mallory | ECON | [address] | | | | | [place] [address] | | + + + + + | Deidra Weldon | ECON | [address] | | | | | [place] | | | | | [address] | | + + + + + Care Team Providers + +------+ + | Care Cook Ship Name | Role | Phone | + [...] | | [address] | [address] | clinic visit - | | | | Caro [address] [place], | [place], [place] | psychosocial | | | | [place] [address] | [address] | readiness update) | | | | [phone] | | | +--------+ + + + [...] Denise | | | | | | [place], [place] | | | | | | [address] | | | | | | [phone] | | | | | | | | +--------+ + + + + documented as of this encounter Visit Diagnoses Not on filedocumented in this encounter"
--- OUTSIDE RECORDS SUMMARY | ~2019-03-12 | XMS | Encounter Summary ---
Demographics + + + | Address | [address] | | | [place] [address] | + + + | Home Phone [...] | Author | [facility] | | | and Josephana | + + + | Organization | [facility] | | [...] Team Providers + +------+ + | Care Huc Name | Role | Phone | + [...] [address] | renal disease) ([facility]) | | | | [address] | [place], [address] | (Primary Dx); | | | | [place], [place] | [place], [place] | Anemia in ESRD | | | | [address] | [address] | (end-stage renal | | | | [phone] | | disease) ([facility]) | +--------+ + + + [...] into the vein Three times a w [place]. iron sucrose (VENOFER) 20 mg/mL injection Inject [...] the Nephrology Team in 2 weeks. CC: [place] Fina Joy MD, Renal Transplant Clinic, [facility] signed by Jorje Camp DO at 09/20/2014 [...] DAVIDSON | | | | | | [place] [address] | | | | | | [phone] | | | | | | | [...]
--- OUTSIDE RECORDS SUMMARY | ~2019-03-12 | XMS | Encounter Summary ---
Demographics + + + | Address | [address] | | | [place] [address] | + + + | Home Phone [...] Author | [facility] | | | and Josephana | + + + | Organization | [facility] | | [...] Team Providers + +------+ + | Care Coffee Maker Servicer Name | Role | Phone | + [...] + + | 11/15/ | Telephone | [facility] | George Torres RN | Medication Problem | | 2019 | | [address] | | (CMN O2) | | | | [place] | | | | | | [address] | | | | | | [phone] | | | +--------+ + + + [...] DAV[place]SON | | | | | | [place] [address] | | | | | | [phone] | | | | | | | | +--------+---------+ + + + documented as of this encounter Visit Diagnoses Not on filedocumented in this encounter"
--- OUTSIDE RECORDS SUMMARY | ~2019-03-12 | XMS | Encounter Summary ---
Demographics + + + | Address | [address] | | | [place] [address] | + + + | Home Phone [...] + | Author | [facility] | | | and Josephana | + + + | Organization | [facility] | | | [...] Providers + +------+ + | Care Senior Integration Architect Name | Role | Phone | [...] | Encounter | JOY | MD Emanuel [address] | | | | | [address] | [facility] | | | | | [address] | [place], [place] | | | | | [place], [place] | [address] | | | | | [address] | [phone] | | | | | [phone] | | | +--------+ + + + [...] DAVIDSON | | | | | | [place] [address] | | | | | | [phone] | | | | | | | | +--------+---------+ + + + documented as of this encounter Visit Diagnoses Not on filedocumented in this encounter"
--- OUTSIDE RECORDS SUMMARY | ~2019-03-12 | XMS | Encounter Summary ---
Demographics + + + | Address | [address] | | | [place] [address] | + + + | Home Phone [...] + | Author | [facility] | | | and Josephana | + + + | Organization | [facility] | | | and [...] Team Providers + +------+ + | Care Self Propelled Mining Machine Operator Name | Role | Phone [...] | | | | [address] | [place], [place] | [place], [place] | | | | | stage renal | [address] | [address] Phone: | | | | | disease | Phone: | [phone] | | | | | ([facility]) | [phone] | Fax: | | | | | Infection | Fax: | [phone] | | | | | and | [phone] | | | | | | inflammatory [...] DO [address] | renal disease) ([facility]) | | | | [address] | [place], [address] | (Primary Dx); | | | | [place], [place] | [place], [place] | Anemia in ESRD | | | | [address] | [address] | (end-stage renal | | | | [phone] | | disease) ([facility]) | +--------+ + + + + [...] recheck her Hb in one week. CC: [place] Fina Joy MD, Renal Transplant Clinic, [facility] Blake Chvaarria MD, FACS documented in thi s encounter [...] DAV[place] | | | | | | [place] [address] | | | | | | [phone] | | | | | | | [...]
--- OUTSIDE RECORDS SUMMARY | ~2019-03-12 | XMS | Encounter Summary ---
Demographics + + + | Address | [address] | | | [place] [address] | + + + | Home Phone [...] | | | | | [place] [address] | | + + + + + | Thania Mallory | ECON | [address] | | | | | [place] [address] | | + + + + + | Deidra Weldon | ECON | [address] | | | | | [place] | | | | | [address] | | + + + + + Care Team Providers + +------+ + | Care Paper Bag Inspector Name | Role | Phone | [...] Denise | | | | | | [place], [place] | | | | | | [address] | | | | | | [phone] | | | | | | | | +--------+ + + + + documented as of this encounter Visit Diagnoses Not on filedocumented in this encounter"
--- OUTSIDE RECORDS SUMMARY | ~2019-03-12 | XMS | Encounter Summary ---
Demographics + + + | Address | [address] | | | [place] [address] | + + + | Home Phone [...] | | | | | [place] [address] | | + + + + + | Thania Mallory | ECON | [address] | | | | | [place] [address] | | + + + + + | Deidra Weldon | ECON | [address] | | | | | [place] | | | | | [address] | | + + + + + Care Team Providers + +------+ + | Care Blue Leather Sorter Name | Role | Phone | + +------+ + | Jonathan Alonso MD | PCP | | + +------+ + Encounter Details +--------+ + + + + | Date | Type | Department | Care Team | Description | +--------+ + + + + | 01/20/ | Hospital | Radiology at [facility] | | | | 2014 | Encounter | [address] | | | | | | Mailcode: [address] | | | | | | [place] | | | | | | [place], [place] | | | | | | [address] | | | | | | [phone] | | | +--------+ + + + [...] Correarobina | | | | | | [place], [place] | | | | | | [address] | | | | | | [phone] | | | | | | | [...] | | + +---------+ + + | [facility] DEPARTMENT OF | | | [...]
--- OUTSIDE RECORDS SUMMARY | ~2019-03-12 | XMS | Encounter Summary ---
Demographics + + + | Address | [address] | | | [place] [address] | + + + | Home Phone [...] | | | | | [place] [address] | | + + + + + | Thania Mallory | ECON | [address] | | | | | [place] [address] | | + + + + + | Deidra Weldon | ECON | [address] | | | | | [place] | | | | | [address] | | + + + + + Care Team Providers + +------+ + | Care Glove Cleaner Name | Role | Phone | [...] | | | [address] | [facility] | | | | | [address] [place], | [place], [place] | | | | | [place] [address] | [address] | | | | | [phone] | | | +--------+ + + + [...] | | | | | | [place], [place] | | | | | | [address] | | | | | | [phone] | | | | | | | | +--------+ + + + + documented as of this encounter Visit Diagnoses + + | Diagnosis | + + | 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
--- OUTSIDE RECORDS SUMMARY | ~2019-03-12 | XMS | Encounter Summary ---
Demographics + + + | Address | [address] | | | [place] [address] | + + + | Home Phone [...] | | | | | [place] [address] | | + + + + + | Thania Mallory | ECON | [address] | | | | | [place] [address] | | + + + + + | Deidra Weldon | ECON | [address] | | | | | [place] | | | | | [address] | | + + + + + Care Team Providers + +------+ + | Care Printed Circuit Boards Laminator Name | Role | Phone | [...] | | | [place], | [place] [address] | | | | | [place] [address] | [phone] | | | | | | | [...] | | | | | | [place], [place] | | | | | | [address] | | | | | | [phone] | | | | | | | [...] [facility] - | [address] | [place] [address] | | | IMMUNOGENETICS/TRANS | [address] | | | | PLANT LABOR[facility] | | | | + + + + + documented in this encounter Visit Diagnoses Not on filedocumented in this encounter"
--- OUTSIDE RECORDS SUMMARY | ~2019-03-12 | XMS | Encounter Summary ---
Demographics + + + | Address | [address] | | | [place] [address] | + + + | Home Phone [...] | Author | [facility] | | | and Josephana | + + + | Organization | [facility] | | [...] Team Providers + +------+ + | Care Auger Operator Name | Role | Phone | [...] | NEPHROLOGY [address] | [address] | | | | | [address] | [address] [place] | | | | | [place], [place] | [place] [address] | | | | | [address] | [phone] | | | | | [phone] | | | +--------+ + + + [...] | | | | | [place] [address] | | | | | | [phone] | | | | | | | | +--------+---------+ + + + documented as of this encounter Visit Diagnoses Not on filedocumented in this encounter"
--- OUTSIDE RECORDS SUMMARY | ~2019-03-12 | XMS | Encounter Summary ---
Demographics + + + | Address | [address] | | | [place] [address] | + + + | Home Phone [...] | | | | | [place] [address] | | + + + + + | Thania Mallory | ECON | [address] | | | | | [place] [address] | | + + + + + | Deidra Weldon | ECON | [address] | | | | | [place] | | | | | [address] | | + + + + + Care Team Providers + +------+ + | Care Outside Cutter Name | Role | Phone | + +------+ + | Shahid Camargo MD | PCP | | + +------+ + Encounter Details +--------+ + + + + | Date | Type | Department | Care Team | Description | +--------+ + + + + | 12/19/ | Document-Sc | UNKNOWN DEPARTMENT | Unknown . | | | 2012 | anned | [address] | | | | | | [facility] | | | | | | [place], [place] | | | | | | [address] | | | +--------+ + + + [...] | | | | | | [place], [place] | | | | | | [address] | | | | | | [phone] | | | | | | | | +--------+ + + + + documented as of this encounter Visit Diagnoses Not on filedocumented in this encounter"
--- OUTSIDE RECORDS SUMMARY | ~2019-03-12 | XMS | Encounter Summary ---
Demographics + + + | Address | [address] | | | [place] [address] | + + + | Home Phone [...] Author | [facility] | | | and Josephana | + + + | Organization | [facility] [...] Providers + +------+ + | Care Water Resources Engineer Name | Role | Phone | [...] | NEPHROLOGY [address] | [address] | | | | | [address] | [address] [place] | | | | | [place], [place] | [place] [address] | | | | | [address] | [phone] | | | | | [phone] | | | +--------+ + + + [...] + + documented as of this encounter Marilyn Queen - 12/08/2016 1:54 PM PDTOutside record: Disability verification form rec eived from Navin Casanova property and casualty insurance agent, [facility] [employer] regarding housing, do s: 12/08/16. Sent to [...] DAV[place] | | | | | | [place] [address] | | | | | | [phone] | | | | | | | | +--------+---------+ + + + documented as of this encounter Visit Diagnoses Not on filedocumented in this encounter"
--- OUTSIDE RECORDS SUMMARY | ~2019-03-12 | XMS | Encounter Summary ---
Demographics + + + | Address | [address] | | | [place] [address] | + + + | Home Phone [...] | | | | | [place] [address] | | + + + + + | Thania Mallory | ECON | [address] | | | | | [place] [address] | | + + + + + | Deidra Weldon | ECON | [address] | | | | | [place] | | | | | [address] | | + + + + + Care Team Providers + +------+ + | Care Broker In Charge Name | Role | Phone [...] | | | | | [address] [place], | [place], [place] | | | | | [place] [address] | [address] | | | | | [phone] | | | +--------+ + + + [...] Denise | | | | | | [place], [place] | | | | | | [address] | | | | | | [phone] | | | | | | | | +--------+ + + + + documented as of this encounter Visit Diagnoses Not on filedocumented in this encounter"
--- OUTSIDE RECORDS SUMMARY | ~2019-03-12 | XMS | Encounter Summary ---
Demographics + + + | Address | [address] | | | [place] [address] | + + + | Home Phone [...] Author | [facility] | | | and [place]ana | + + + | Organization | [facility] | [...] Providers + +------+ + | Care Clinical Nurse Reviewer Name | Role | Phone | + [...] | | [address] | [place], [address] | (Primary Dx) | | | | [place], [place] | [place], [place] | | | | | [address] | [address] | | | | | [phone] | | | +--------+ + + + [...] of documents of Clinic Attendance here at [facility], with the fish processor, Elisabeth Quijano RN. Outpatient Prescriptions Marked as [...] A&O x3, at this point. 3. The [facility] Staff have given her every opportunity to succeed here at the Clinic in [place]. 4. Will recheck her in 2 weeks. : [place] Fina documented in thi s encounter Plan [...] [address] | | | | | | [place] [address] | | | | | | [phone] | | | | | | | | +--------+---------+ + + + documented as of this encounter Visit Diagnoses + + | Diagnosis | + + | ESRD (end stage renal disease) (HCC) - Primary End stage renal disease | + + documented in this encounter"
--- OUTSIDE RECORDS SUMMARY | ~2019-03-12 | XMS | Encounter Summary ---
Demographics + + + | Address | [address] | | | [place] [address] | + + + | Home Phone [...] Author | [facility] | | | and Josephana | + + + | Organization | [facility] | [...] Team Providers + +------+ + | Care Foil Spooler Name | Role | Phone | + [...] | | | | | | | [place] | | | | | | | [...] + + | 02/24/ | Hospital | [facility] | Blake Chavarria | ESRD (end stage | | 2013 | Encounter | MED CTR OR INTRA OP | MD Antonieta, FACS 380 | renal disease) ([facility]) | | | | [address] | [facility] | (Primary Dx) | | | | [place] | [place] [address] | | | | | [address] | [phone] | | | | | [phone] | | | +--------+ + + + [...] might be different f rom the original. [facility] POST-OP INSTRUCTIONS: Arterio-Venous Fistula 1. Keep [...] may interact with prescription medicines or other fban-evb-xphxbwo (OTC) drugs. The FDA recommends reading OTC medication labels careful ly to clearly understand the list of active ingredients, directions, and any precautions to help avoid taking too muchacetaminophen. If you have questions, ask your pharmacist or [facility] care provider. Managing Nausea Some people [...] or skin changes (rash, itching, or hives). 7858-1088 The [employer]. [address] [place] [address], [place] [address]. All righ ts reserved. This information is [...] [place] | | | | | | [place] [address] | | | | | | [phone] | | | | | | | [...] mL/min/1.73m2 | [facility] | | | ROMANIAN | (<18). | | MEDICAL | | [...] | | ine Ratio | | | HCAD | | | | | | MEDICAL [...] + | [facility] | [address] | [place], [place] | [phone] | | [facility] | | [address] | | | - LABORATORY | | | | + + + + + | [facility] | [address] | [place], [place] | | | [facility] | | [address] | | | - LABORATORY | | [...]
--- OUTSIDE RECORDS SUMMARY | ~2019-03-12 | XMS | Encounter Summary ---
Demographics + + + | Address | [address] | | | [place] [address] | + + + | Home Phone [...] + | Author | [facility] | | | and Josephana | + + + | Organization | [facility] | [...] Providers + +------+ + | Care Air Crew Member Name | Role | Phone | + [...] | stage renal | [address] | [address] [place] [address] | | | | | disease) | Shun Griffin | Jaciel Gotti | | | | | ([facility]) | [address] | [address] [place] | | | | | Anemia in | [place], [place] | [place] | | | | | ESRD | [address] | [address] Phone: | | | | | (end-stage | Phone: | [phone] | | | | | renal | [phone] | Fax: | | | | | disease) | Fax: | [phone] | | | | | ([facility]) | [phone] | | | | | | Procedures [...] disease) ([facility]) | | | | [address] | [place], [address] | (Primary Dx) | | | | [place], [place] | [place], [place] | | | | | [address] | [address] | | | | | [phone] | | | +--------+ + + + [...] 1-2 txs per week from records in [facility] EHR, per [facility] Nurse Elisabeth Portillo RN. Her BP, PO4, and PTH are consisently high. 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 Has been counseled in [facility] regarding risks of calciphylaxis. 4. 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 5. Will recheck her in 2 weeks. : [place] Fina Alonso MD, PhD documented in thi [...] [place] | | | | | | [place] [address] | | | | | | [phone] | | | | | | | | +--------+---------+ + + + documented as of this encounter Visit Diagnoses + + | Diagnosis | + + | ESRD (end stage renal disease) (HCC) - Primary End stage renal disease | + + documented in this encounter"
--- OUTSIDE RECORDS SUMMARY | ~2019-03-12 | XMS | Encounter Summary ---
Demographics + + + | Address | [address] | | | [place] [address] | + + + | Home Phone [...] | | | | | [place] [address] | | + + + + + | Thania Mallory | ECON | [address] | | | | | [place] [address] | | + + + + + | Deidra Weldon | ECON | [address] | | | | | [place] | | | | | [address] | | + + + + + Care Team Providers + +------+ + | Care Layer Out Name | Role | Phone | [...] | Nephrology at | MD Emanuel [address] [facility] | | | | | [place] | [address] Caro | | | | | [facility] | [place], [place] | | | | | [address] [facility] | [address] | | | | | Mailcode: [id number] | [phone] | | | | | Alexander | | | | | | [place], [place] | | | | | | [address] | | | | | | [phone] | | | +--------+ + + + [...] | | | | | | [place] | | | | | | [address] | | | | | | [phone] | | | | | | | | +--------+ + + + + documented as of this encounter Visit Diagnoses Not on filedocumented in this encounter"
--- OUTSIDE RECORDS SUMMARY | ~2019-03-12 | XMS | Encounter Summary ---
Demographics + + + | Address | [address] | | | [place] [address] | + + + | Home Phone [...] Author | [facility] | | | and Josephana | + + + | Organization | [facility] [...] Providers + +------+ + | Care Supervisor Drilling And Shooting Name | Role | Phone | + [...] | | [address] | [place], [address] | | | | | [place], [place] | [place], [place] | | | | | [address] | [address] | | | | | [phone] | | | +--------+ + + + [...] [place] | | | | | | [place] [address] | | | | | | [phone] | | | | | | | | +--------+---------+ + + + documented as of this encounter Visit Diagnoses Not on filedocumented in this encounter"
--- OUTSIDE RECORDS SUMMARY | ~2019-03-12 | XMS | Encounter Summary ---
Demographics + + + | Address | [address] | | | [place] [address] | + + + | Home Phone [...] | Author | [facility] | | | and Josephana | + + + | Organization | [facility] [...] Team Providers + +------+ + | Care Sand Mixer Operator Name | Role | Phone | [...] NEPHROLOGY [address] | M, DO [address] | | | | | [address] | [place], [address] | | | | | [place], [place] | [place], [place] | | | | | [address] | [address] | | | | | [phone] | | | +--------+ + + + [...] of contact with the dialysis staff in chief clinical officer on a frequent basis. Outpatient Prescriptions Marked [...] will be rechecked in 2 weeks. : [place] Fina documented in thi s encounter Plan [...] | | | | | | [place] [address] | | | | | | [phone] | | | | | | | | +--------+---------+ + + + documented as of this encounter Visit Diagnoses + + | Diagnosis | + + | ESRD (end stage renal disease) (HCC) - Primary End stage renal disease | + + documented in this encounter"
--- OUTSIDE RECORDS SUMMARY | ~2019-03-12 | XMS | Encounter Summary ---
Demographics + + + | Address | [address] | | | [place] [address] | + + + | Home Phone [...] | | | | | [place] [address] | | + + + + + | Thania Mallory | ECON | [address] | | | | | [place] [address] | | + + + + + | Deidra Weldon | ECON | [address] | | | | | [place] | | | | | [address] | | + + + + + Care Team Providers + +------+ + | Care Sand Wheeler Name | Role | Phone | + [...] | | | | [address] [place] | [facility] | | | | | [address] [place], | [place], [place] | | | | | [place] [address] | [address] | | | | | [phone] | | | +--------+ + + + [...] Denise | | | | | | [place] | | | | | | [address] | | | | | | [phone] | | | | | | | | +--------+ + + + + documented as of this encounter Visit Diagnoses Not on filedocumented in this encounter"
--- OUTSIDE RECORDS SUMMARY | ~2019-03-12 | XMS | Encounter Summary ---
Demographics + + + | Address | [address] | | | [place] [address] | + + + | Home Phone [...] | | | | | [place] [address] | | + + + + + | Thania Mallory | ECON | [address] | | | | | [place] [address] | | + + + + + | Deidra Weldon | ECON | [address] | | | | | [place] | | | | | [address] | | + + + + + Care Team Providers + +------+ + | Care Assembler Faucets Name | Role | Phone | + [...] [place] | | | | | [facility], | [place], [place] | | | | | [place] [address] | [address] | | | | | [phone] | | | +--------+ + + + [...] [place] | | | | | | [address] | | | | | | [phone] | | | | | | | | +--------+ + + + + documented as of this encounter Visit Diagnoses Not on filedocumented in this encounter"
--- OUTSIDE RECORDS SUMMARY | ~2019-03-12 | XMS | Encounter Summary ---
Demographics + + + | Address | [address] | | | [place] [address] | + + + | Home Phone [...] | [facility] | | | and Josephana | + + + | Organization | [facility] [...] Team Providers + +------+ + | Care Monument Mason Name | Role | Phone | + [...] fistula | | 2017 | Encounter | [facility] | [address] | thrombosis, initial | | | | CLINICAL DECISION | [place], [place] | encounter ([facility]) | | | | [address] | [address] | | | | | [place], [place] | | | | | | [address] | | | | | | [phone] | | | +--------+ + + + [...] 07/09/161821 Date of Service: 07/09/161820 Status: Signed Head Loader: Catherine Lenz, RN (Registered Nurse) Patient stable at time of discharge. Final dose of IV Solu-Medrol given, tolerated well. Fi nhung CDI, thrill felt on palpation, no bleeding or hematoma noted. Patient and mom educated on monitoring fistula and to call provider with any questions or concerns. IV dc'd, bandage applied. Discharged to private vehicle. Siria jett in this encounter Plan of Treatment +--------+---------+ + + + | Date | Type | Specialty | Care Team | Description | +--------+---------+ + + + | 04/18/ | Office | Pulmonology | Denny Alexander | | | 2019 | Visit | | Deny Briggs MD [address] | | | | | | [address] | | | | | | [place] [address] | | | | | | [phone] | | | | | | | [...] At | + + + | Successful yarsani of flow within the left brachiocephalic | [...] | The microaccesses were exchanged to 6 Beninese sheaths. Patient was | | | heparinized. [...] | | stent. Intraprocedural fistulogram was demonstrated yarsani of | | | flow but severe [...] + + | Cedric, Sonido Conversion - 10/18/2018 2:13 AM PDT IR [...] access. The microaccesses were exchanged to 6 Beninese sheaths. Patient was | | heparinized. Via [...] stent. 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 IMPRESSION: Successful yarsani of flow within the | | left [...] At | + + + | Successful yarsani of flow within the left brachiocephalic | [...] | The microaccesses were exchanged to 6 Beninese sheaths. Patient was | | | heparinized. [...] | | stent. Intraprocedural fistulogram was demonstrated yarsani of | | | flow but severe [...] access. The microaccesses were exchanged to 6 Beninese sheaths. Patient was | | heparinized. Via [...] stent. 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 IMPRESSION: Successful yarsani of flow within the | | left [...] + + | Sonido Steele - 10/18/2018 2:13 AM PDT This Point [...] | | | Patient | performed at [facility];[address] | | LAB | | | | [address];[place], [place] | | | | | | [address] | | | | + + + [...] | | | | | performed at [facility];[address] | | | | | | [address];[place], [place] | | | | | | [address] | | | | + + + [...] + + + | RED CELL | 3.77 | 3.70 - 5.10 | EXTERNAL | | | COUNT | | M/uL | LAB | | + + + + + + | Hgb | 14.2 | 11.3 - 15.5 | [...] | | | Estimate | performed at [facility] | | LAB | | | | [address];[place] | | | | | | [address] | | | | + + + [...] | | | | | | at [facility];[address] | | | | | | [address];[place] [address] | | | | + + + [...]
--- OUTSIDE RECORDS SUMMARY | ~2019-03-12 | XMS | Encounter Summary ---
Demographics + + + | Address | [address] | | | [place] [address] | + + + | Home Phone [...] | Author | [facility] | | | and Josephana | + + + | Organization | [facility] [...] Team Providers + +------+ + | Care Quarter Backer Name | Role | Phone | + +------+ + PCP | Unavailable | + +------+ + Encounter Details +--------+ + + + + | Date | Type | Department | Care Team | Description | +--------+ + + + + | 08/12/ | Hospital | [facility] | Conversion | ESRD (end stage | | 2016 | Encounter | CENTER CV INTRA OP | Transaction, | renal disease) | | | | [address] | Provider Unknown | ([facility]); ESRD on | | | | [place], [place] | | hemodialysis ([facility]) | | | | [address] | (Fax) | | | | | [phone] | Doyle Diaz MD | | +--------+ [...] 08/13/151114 Date of Service: 08/13/151114 Status: Signed Inside Account Representative: [place] Acuna RN (Registered Nurse) Pt discharged [...] [place] | | | | | | [place] [address] | | | | | | [phone] | | | | | | | [...] ANGIOPLASTY AV FISTULA VENOUS | | | GOLD FRAME ASSEMBLER: Doyle Diaz MD CONSENT: The risks, benefits [...] guidewire combination, a 4 | | | Nauruan angled catheter was advanced and positioned into [...] a | | | guidewire, a 6 Nauruan sheath was advanced and positioned into the [...] a | | | guidewire, a 7 Nauruan sheath was advanced and positioned into the [...] IR ANGIOPLASTY | | AV FISTULA VENOUS GOLD FRAME ASSEMBLER: Doyle Diaz MD CONSENT: The risks, benefits [...] catheter guidewire combination, a | | 4 Nauruan angled catheter was advanced and positioned into [...] | | ANGIOPLASTY:Over a guidewire, a 6 Nauruan sheath was advanced and positioned into the [...] Over | | a guidewire, a 7 Nauruan sheath was advanced and positioned into the [...] ANGIOPLASTY AV FISTULA VENOUS | | | GOLD FRAME ASSEMBLER: Doyle Diaz MD CONSENT: The risks, benefits [...] guidewire combination, a 4 | | | Nauruan angled catheter was advanced and positioned into [...] a | | | guidewire, a 6 Nauruan sheath was advanced and positioned into the [...] a | | | guidewire, a 7 Nauruan sheath was advanced and positioned into the [...] IR ANGIOPLASTY | | AV FISTULA VENOUS GOLD FRAME ASSEMBLER: Doyle Diaz MD CONSENT: The risks, benefits [...] catheter guidewire combination, a | | 4 Nauruan angled catheter was advanced and positioned into [...] | | ANGIOPLASTY:Over a guidewire, a 6 Nauruan sheath was advanced and positioned into the [...] Over | | a guidewire, a 7 Nauruan sheath was advanced and positioned into the [...] LAB | | | | performed at [facility];[address] | | | | | | [facility];[place], [place] | | | | | | [address] | | | | + + + [...]
--- OUTSIDE RECORDS SUMMARY | ~2019-03-12 | XMS | Encounter Summary ---
Demographics + + + | Address | [address] | | | [place] [address] | + + + | Home Phone [...] [facility] | | | and Josephana | + + + | Organization | [facility] | | | [...] Providers + +------+ + | Care Director Underwriter Sales Name | Role | Phone | [...] NEPHROLOGY [address] | M, DO [address] | | | | | [address] | [place], [address] | | | | | [place], [place] | [place], [place] | | | | | [address] | [address] | | | | | [phone] | | | +--------+ + + + [...] [place] | | | | | | [place] [address] | | | | | | [phone] | | | | | | | | +--------+---------+ + + + documented as of this encounter Visit Diagnoses Not on filedocumented in this encounter"
--- OUTSIDE RECORDS SUMMARY | ~2019-03-12 | XMS | Encounter Summary ---
Demographics + + + | Address | [address] | | | [place] [address] | + + + | Home Phone [...] | Author | [facility] | | | and Josephana | + + + | Organization | [facility] | | | [...] Team Providers + +------+ + | Care Spice Room Worker Name | Role | Phone | [...] | NEPHROLOGY [address] | [address] | | | | | [address] | [address] [place] | | | | | [place], [place] | [place] [address] | | | | | [address] | [phone] | | | | | [phone] | | | +--------+--------+ + + + [...] | | | | | [place] [address] | | | | | | [phone] | | | | | | | | +--------+---------+ + + + documented as of this encounter Visit Diagnoses Not on filedocumented in this encounter"
--- OUTSIDE RECORDS SUMMARY | ~2019-03-12 | XMS | Encounter Summary ---
Demographics + + + | Address | [address] | | | [place] [address] | + + + | Home Phone [...] Author | [facility] | | | and Josephana | + + + | Organization | [facility] | | [...] Providers + +------+ + | Care Vocational Case Manager Name | Role | Phone | [...] | Encounter | JOY | MD Emanuel [address] | | | | | [address] | [facility] | | | | | [address] | [place], [place] | | | | | [place], [place] | [address] | | | | | [address] | [phone] | | | | | [phone] | | | +--------+ + + + [...] [place] | | | | | | [place] [address] | | | | | | [phone] | | | | | | | | +--------+---------+ + + + documented as of this encounter Visit Diagnoses Not on filedocumented in this encounter"
--- OUTSIDE RECORDS SUMMARY | ~2019-03-12 | XMS | Encounter Summary ---
Demographics + + + | Address | [address] | | | [place] [address] | + + + | Home Phone [...] | Author | [facility] | | | and Josephana | + + + | Organization | [facility] | [...] Providers + +------+ + | Care Melter Helper Name | Role | Phone | [...] | | | | [place], [place] | [phone] | | | | | [address] | | | | | | [phone] | | | +--------+ + + + [...] | | | | | [place] [address] | | | | | | [phone] | | | | | | | [...] Steele - 10/19/2018 6:38 AM PDT This is a non-reportable procedure | | without a radiologist report and isused for image storage only | + + documented in this encounter Visit Diagnoses + + | Diagnosis | + + | Pain Generalized pain | + + documented in this encounter"
--- OUTSIDE RECORDS SUMMARY | ~2019-03-12 | XMS | Encounter Summary ---
Demographics + + + | Address | [address] | | | [place] [address] | + + + | Home Phone [...] | | | | | [place] [address] | | + + + + + | Thania Mallory | ECON | [address] | | | | | [place] [address] | | + + + + + | Deidra Weldon | ECON | [address] | | | | | [place] | | | | | [address] | | + + + + + Care Team Providers + +------+ + | Care General I Farmworker Name | Role | Phone | [...] | | | [place], | [place] [address] | | | | | [place] [address] | [phone] | | | | | | | [...] Denise | | | | | | [place], [place] | | | | | | [address] | | | | | | [phone] | | | | | | | | +--------+ + + + + documented as of this encounter Visit Diagnoses Not on filedocumented in this encounter"
--- OUTSIDE RECORDS SUMMARY | ~2019-03-12 | XMS | Encounter Summary ---
Demographics + + + | Address | [address] | | | [place] [address] | + + + | Home Phone [...] + | Author | [facility] | | | and Josephana | + + + | Organization | [facility] | | | [...] Providers + +------+ + | Care Enterprise Sales Person Name | Role | Phone [...] | NEPHROLOGY [address] | [address] | renal disease) ([facility]) | | | | [address] | [address] [place] | (Primary Dx); | | | | [place], [place] | [place] [address] | Secondary | | | | [address] | [phone] | hyperparathyroidism | | | | [phone] | | ([facility]); | | | | | | Hyperphosphatemia [...] | | | | | [place] [address] | | | | | | [phone] | | | | | | | [...]
--- OUTSIDE RECORDS SUMMARY | ~2019-03-12 | XMS | Encounter Summary ---
Demographics + + + | Address | [address] | | | [place] [address] | + + + | Home Phone [...] | | | | | [place] [address] | | + + + + + | Thania Mallory | ECON | [address] | | | | | [place] [address] | | + + + + + | Deidra Weldon | ECON | [address] | | | | | [place] | | | | | [address] | | + + + + + Care Team Providers + +------+ + | Care Fuselage Framer Name | Role | Phone | + [...] Requested | | | | [place] | [facility] | | | | | [facility] | [place], [place] | | | | | [address] [place] [address] Dr | [address] | | | | | Mailcode: DCH7 | | | | | | [place] | | | | | | [place], [place] | | | | | | [address] | | | | | | [phone] | | | +--------+ + + + [...] Denise | | | | | | [place] | | | | | | [address] | | | | | | [phone] | | | | | | | | +--------+ + + + + documented as of this encounter Visit Diagnoses Not on filedocumented in this encounter"
--- OUTSIDE RECORDS SUMMARY | ~2019-03-12 | XMS | Encounter Summary ---
Demographics + + + | Address | [address] | | | [place] [address] | + + + | Home Phone [...] | Author | [facility] | | | and Josephana | + + + | Organization | [facility] | | [...] Team Providers + +------+ + | Care Administration Physician Name | Role | Phone | [...] | Encounter | JOY | MD Emanuel [address] | | | | | [address] | [facility] | | | | | [address] | [place], [place] | | | | | [place], [place] | [address] | | | | | [address] | [phone] | | | | | [phone] | | | +--------+ + + + [...] [place] | | | | | | [place] [address] | | | | | | [phone] | | | | | | | | +--------+---------+ + + + documented as of this encounter Visit Diagnoses Not on filedocumented in this encounter"
--- OUTSIDE RECORDS SUMMARY | ~2019-03-12 | XMS | Encounter Summary ---
Demographics + + + | Address | [address] | | | [place] [address] | + + + | Home Phone [...] | | | | | [place] [address] | | + + + + + | Thania Mallory | ECON | [address] | | | | | [place] [address] | | + + + + + | Deidra Weldon | ECON | [address] | | | | | [place] | | | | | [address] | | + + + + + Care Team Providers + +------+ + | Care Agriculture Worker Name | Role | Phone | [...] | | [address] | [facility] | | | | | [facility], | [place], [place] | | | | | [place] [address] | [address] | | | | | [phone] | | | +--------+ + + + [...] | | | | | | [place] | | | | | | [address] | | | | | | [phone] | | | | | | | | +--------+ + + + + documented as of this encounter Visit Diagnoses Not on filedocumented in this encounter"
--- OUTSIDE RECORDS SUMMARY | ~2019-03-12 | XMS | Encounter Summary ---
Demographics + + + | Address | [address] | | | [place] [address] | + + + | Home Phone [...] | Author | [facility] | | | and Josephana | + + + | Organization | [facility] [...] Providers + +------+ + | Care Health Program Manager Name | Role | Phone | [...] (FORMERLY [facility]) | | | | [address] | [place], [address] | (Primary Dx) | | | | [place], [place] | [place], [place] | | | | | [address] | [address] | | | | | [phone] | | | +--------+ + + + [...] DAV[place]SON | | | | | | [place] [address] | | | | | | [phone] | | | | | | | | +--------+---------+ + + + documented as of this encounter Visit Diagnoses + + | Diagnosis | + + | ESRD (end stage renal disease) (HCC) - Primary End stage renal disease | + + documented in this encounter"
--- OUTSIDE RECORDS SUMMARY | ~2019-03-12 | XMS | Encounter Summary ---
Demographics + + + | Address | [address] | | | [place] [address] | + + + | Home Phone [...] | Author | [facility] | | | and Josephana | + + + | Organization | [facility] | | [...] + +------+ + | Care Professor Of Theater Name | Role | Phone | + +------+ + PCP | Unavailable | + +------+ + Encounter Details +--------+ + + + + | Date | Type | Department | Care Team | Description | +--------+ + + + + | 06/12/ | Hospital | [facility] | Conversion | | | 2015 | Encounter | [facility]ENTER [facility] | Transaction, | | | | | CLINIC [address] | Provider Unknown | | | | | [place], [place] | [phone] | | | | | [address] | | | | | | [phone] | | | +--------+ + + + [...] DAVIDSON | | | | | | [place] [address] | | | | | | [phone] | | | | | | | [...] | | Patient | performed at [facility];[address] | | LAB | | | | [address];[place], [place] | | | | | | [address] | | | | + + + [...] [place];[address] | | | | | | [address];[place], [place] | | | | | | [address] | | | | + + + [...] | | | | | | [place] [address] | | | | + + + + + + | RED CELL | 3.83Comment: Testing | 3.70 - 5.10 | EXTERNAL | | | COUNT | performed at [facility], [address] | M/uL | LAB | | | | [address], | | | | | | [place] [address] | | | | + + + + + + | Hgb | 13.6Comment: Testing | 11.3 - 15.5 | EXTERNAL | | | | performed at [facility], [address] | g/dL | LAB | | | | [address], | | | | | | [place] [address] | | | | + + + + + + | Hematocrit, | 40.5Comment: Testing | 34.0 - 46.0 % | EXTERNAL | | | POC | performed at [facility], [address] | | LAB | | | | [address], | | | | | | [place] [address] | | | | + + + + + + | MCV | 105.8 (H)Comment: | 80.0 - 100.0 fl | EXTERNAL | | | | Testing performed at | | LAB | | | | [facility], [address] | | | | | | [place] | | | | | | [address] | | | | + + + + + + | MCH | 35.6 (H)Comment: Testing | 27.0 - 34.0 pg | EXTERNAL | | | | performed at [facility], [address] | | LAB | | | | [address], | | | | | | [place] [address] | | | | + + + + + + | MCHC | 33.6Comment: Testing | 32.0 - 35.5 | EXTERNAL | | | | performed at [facility], [address] | g/dL | LAB | | | | [address], | | | | | | [place] [address] | | | | + + + + + + | RDW-CV | 50.3Comment: Testing | 37 - 53 fl | EXTERNAL | | | | performed at [facility], [address] | | LAB | | | | [address], | | | | | | [place] [address] | | | | + + + + + + | Platelet | 170Comment: Testing | 150 - 400 K/uL | EXTERNAL | | | Count | performed at [facility], [address] | | LAB | | | Plasma | [address], | | | | | | [place] [address] | | | | + + + + + + | MPV | 9.5Comment: Testing | fl | EXTERNAL | | | | performed at [facility], [address] | | LAB | | | | [address], | | | | | | [place] [address] | | | | + + + + + + | Differentia | AUTOMATEDComment: | | EXTERNAL | | | l Type | Testing performed at | | LAB | | | | [facility], [address] [facility] | | | | | | [place] | | | | | | [address] | | | | + + + + + + | % Segmented | 61.53Comment: Testing | % | EXTERNAL | | | | performed at [facility], [address] | | LAB | | | Neutrophils | [address], | | | | | | [place] [address] | | | | + + + + + + | % | 26.38Comment: Testing | % | EXTERNAL | | | Lymphocytes | performed at [facility], [address] | | LAB | | | | [address], | | | | | | [place] [address] | | | | + + + + + + | % Monocytes | 8.30Comment: Testing | % | EXTERNAL | | | | performed at [facility], [address] | | LAB | | | | [address], | | | | | | [place] [address] | | | | + + + + + + | % | 3.19Comment: Testing | % | EXTERNAL | | | Eosinophils | performed at [facility], [address] | | LAB | | | | [address], | | | | | | [place] [address] | | | | + + + + + + | % Basophils | 0.60Comment: Testing | % | EXTERNAL | | | | performed at [facility], [address] | | LAB | | | | [address], | | | | | | [place] [address] | | | | + + + + + + | Absolute | 5.44Comment: Testing | 1.90 - 7.40 | EXTERNAL | | | Segmented | performed at [facility], [address] | K/uL | LAB | | | Neutrophils | [address], | | | | | | [place] [address] | | | | + + + + + + | Absolute | 2.33Comment: Testing | 1.00 - 3.90 | EXTERNAL | | | Lymphocytes | performed at [facility], [address] | K/uL | LAB | | | | [address], | | | | | | [place] [address] | | | | + + + + + + | Absolute | 0.74Comment: Testing | 0.00 - 0.80 | EXTERNAL | | | Monocytes | performed at [facility], [address] | K/uL | LAB | | | | [address], | | | | | | [place] [address] | | | | + + + + + + | Absolute | 0.28Comment: Testing | 0.00 - 0.50 | EXTERNAL | | | Eosinophils | performed at [facility], [address] | K/uL | LAB | | | | [address], | | | | | | [place] [address] | | | | + + + + + + | Absolute | 0.05Comment: Testing | 0.00 - 0.10 | EXTERNAL | | | Basophils | performed at [facility], [address] | K/uL | LAB | | | | [address], | | | | | | [place] [address] | | | | + + [...] | | | | | [place] [address] | | | | + + + + + + | K | 3.8Comment: Testing | 3.5 - 4.9 | EXTERNAL | | | | performed at [facility], [address] | mmol/L | LAB | | | | [address], | | | | | | [place] [address] | | | | + + + + + + | Cl | 94 (L)Comment: Testing | 99 - 109 mmol/L | EXTERNAL | | | | performed at [facility], [address] | | LAB | | | | [address], | | | | | | [place] [address] | | | | + + + + + + | CO2 | 31Comment: Testing | 23 - 32 mmol/L | EXTERNAL | | | | performed at [facility], [address] | | LAB | | | | [address], | | | | | | [place] [address] | | | | + + + + + + | Anion Gap | 13Comment: Testing | 5 - 20 mmol/L | EXTERNAL | | | | performed at [facility], [address] | | LAB | | | | [address], | | | | | | [place] [address] | | | | + + + + + + | Glucose, | 95Comment: Testing | 65 - 99 mg/dL | EXTERNAL | | | Fasting | performed at [facility], [address] | | LAB | | | | [address], | | | | | | [place] [address] | | | | + + + + + + | BUN | 40 (H)Comment: Testing | 8 - 25 mg/dL | EXTERNAL | | | | performed at [facility], [address] | | LAB | | | | [address], | | | | | | [place] [address] | | | | + + + + + + | Creatinine | 7.24 (H)Comment: Testing | 0.50 - 1.00 | EXTERNAL | | | | performed at [facility], [address] | mg/dL | LAB | | | | [address], | | | | | | [place] [address] | | | | + + + + + + | BUN/Creatin | 6Comment: Testing | | EXTERNAL | | | ine Ratio | performed at [facility], [address] | | LAB | | | | [address], | | | | | | [place] [address] | | | | + + + + + + | Calcium | 10.2Comment: Testing | 8.5 - 10.5 | EXTERNAL | | | | performed at [facility], [address] | mg/dL | LAB | | | | [facility], | | | | | | [place] [address] | | | | + + + + + + | Estimated | CALCULATION NOT | mL/min/1.73m2 | EXTERNAL | | | GFR | PERFORMED. RESULT NOT | | LAB | | | | VALID IF AGE LT 20 | | | | | | YEARS.Comment: Testing | | | | | | performed at [facility], [address] | | | | | | [facility], | | | | | | [place] [address] | | | | + + + [...] EXTERNAL LAB | | Testing performed at [address];[place] [address] MRSA PCR | | | NEGATIVE Testing performed at | | | [address];[place] [address] | | + + + + +---------+ + + | Performing | Address | City/State/Zipcode | Phone Number | | Organization | | | | + +---------+ + + | EXTERNAL LAB | | | | + +---------+ + + documented in this encounter Visit Diagnoses Not on filedocumented in this encounter"
--- OUTSIDE RECORDS SUMMARY | ~2019-03-12 | XMS | Encounter Summary ---
Demographics + + + | Address | [address] | | | [place] [address] | + + + | Home Phone [...] | Author | [facility] | | | and Josephana | + + + | Organization | [facility] | | | and Josephana [...] Team Providers + +------+ + | Care Drawer In Name | Role | Phone | [...] + + | 12/17/ | Telephone | [facility] | [place], | Appointment | | 2019 | | CENTER CASE | Irish Obrien CMA | (Appointment with | | | | MANAGEMENT [address] | | PCP needed) | | | | [address] | | | | | | [place], [place] | | | | | | [address] | | | | | | [phone] | | | +--------+ + + + [...] [place] | | | | | | [place] [address] | | | | | | [phone] | | | | | | | | +--------+---------+ + + + documented as of this encounter Visit Diagnoses Not on filedocumented in this encounter"
--- OUTSIDE RECORDS SUMMARY | ~2019-03-12 | XMS | Encounter Summary ---
Demographics + + + | Address | [address] | | | [place] [address] | + + + | Home Phone [...] Author | [facility] | | | and Josephana | + + + | Organization | [facility] [...] Team Providers + +------+ + | Care Accounting Professor Name | Role | Phone | + +------+ + PCP | Unavailable | + +------+ + Encounter Details +--------+ + + + + | Date | Type | Department | Care Team | Description | +--------+ + + + + | 07/09/ | Hospital | [facility] | Colten Hutchins MD | AV fistula | | 2017 | Encounter | [facility] | [address] | thrombosis, initial | | | | CLINICAL DECISION | [place], [place] | encounter ([facility]) | | | | [address] | [address] | | | | | [place], [place] | | | | | | [address] | | | | | | [phone] | | | +--------+ + + + [...] 07/09/161821 Date of Service: 07/09/161820 Status: Signed Horse Trainer: Catherine Lenz, RN (Registered Nurse) Patient stable [...] [place] | | | | | | [place] [address] | | | | | | [phone] | | | | | | | [...] At | + + + | Successful latter day of flow within the left brachiocephalic | [...] | | stent. Intraprocedural fistulogram was demonstrated latter day of | | | flow but severe [...] stent. Intraprocedural fistulogram was | | demonstrated latter day of flow but severe recurrent in-stent restenosis [...] central veins are widely patent. IMPRESSION: Successful latter day of flow within the | | left [...] At | + + + | Successful latter day of flow within the left brachiocephalic | [...] | | stent. Intraprocedural fistulogram was demonstrated latter day of | | | flow but severe [...] stent. Intraprocedural fistulogram was | | demonstrated latter day of flow but severe recurrent in-stent restenosis [...] central veins are widely patent. IMPRESSION: Successful latter day of flow within the | | left [...] | | Patient | performed at [facility];[address] | | LAB | | | | [facility];[place], [place] | | | | | | [address] | | | | + + + [...] | | | | performed at [facility];[address] | | | | | | [address];[place], [place] | | | | | | [address] | | | | + + + [...] | | Estimate | performed at [facility] | | LAB | | | | [address];[place] | | | | | | [address] | | | | + + + [...] | | | | | at [facility];[address] | | | | | | [address];[place] [address] | | | | + + + [...]
--- OUTSIDE RECORDS SUMMARY | ~2019-03-12 | XMS | Encounter Summary ---
Demographics + + + | Address | [address] | | | [place] [address] | + + + | Home Phone [...] | | | | | [place] [address] | | + + + + + | Thania Mallory | ECON | [address] | | | | | [place] [address] | | + + + + + | Deidra Weldon | ECON | [address] | | | | | [place] | | | | | [address] | | + + + + + Care Team Providers + +------+ + | Care Cane Flume Feeding Machine Operator Name | Role | Phone [...] | | [address] | [facility] | | | | | [facility], | [place], [place] | | | | | [place] [address] | [address] | | | | | [phone] | | | +--------+ + + + [...] Denise | | | | | | [place], [place] | | | | | | [address] | | | | | | [phone] | | | | | | | | +--------+ + + + + documented as of this encounter Visit Diagnoses Not on filedocumented in this encounter"
--- OUTSIDE RECORDS SUMMARY | ~2019-03-12 | XMS | Encounter Summary ---
Demographics + + + | Address | [address] | | | [place] [address] | + + + | Home Phone [...] | | | | | [place] [address] | | + + + + + | Thania Mallory | ECON | [address] | | | | | [place] [address] | | + + + + + | Deidra Weldon | ECON | [address] | | | | | [place] | | | | | [address] | | + + + + + Care Team Providers + +------+ + | Care Food Safety Director Name | Role | Phone | [...] | | | [address] | [facility] | | | | | [facility], | [place], [place] | | | | | [place] [address] | [address] | | | | | [phone] | | | +--------+ + + + [...] [place] | | | | | | [address] | | | | | | [phone] | | | | | | | | +--------+ + + + + documented as of this encounter Visit Diagnoses Not on filedocumented in this encounter"
--- OUTSIDE RECORDS SUMMARY | ~2019-03-12 | XMS | Encounter Summary ---
Demographics + + + | Address | [address] | | | [place] [address] | + + + | Home Phone [...] | Author | [facility] | | | and Josephana | + + + | Organization | [facility] | [...] Providers + +------+ + | Care Administrative Analyst Name | Role | Phone | [...] NEPHROLOGY [address] | MD [address] | (Asymptomatic) | | | | [address] | [address] [place] | | | | | [place], [place] | [place] [address] | | | | | [address] | [phone] | | | | | [phone] | | | +--------+ + + + [...] Note Date of visit: 09/20/2013 Dialysis Clinic: [facility] Mode of dialysis: Hemodialysis Dialysis prescription: [...] Date Noted ESRD (end stage renal disease) ([facility]) Priority: High Note Last Updated: 07/29/2013 Due to Henoch-Schonlein purpura. On hemodialysis, started July 2013. Prior on peritoneal dialysis, started 2012. Access: R chest catheter. Peritonitis, dialysis-associated ([facility]) 07/29/2013 Note Last Updated: 07/29/2013 Due to [...] living donor. Pt has been referred to [facility]. -pt will f/u with them next month [facility] Lianna Joy, [facility] Pediatric Nephrology documented in this [...] | | | | [place] [address] | | | | | | [phone] | | | | | | | [...]
--- OUTSIDE RECORDS SUMMARY | ~2019-03-12 | XMS | Encounter Summary ---
Demographics + + + | Address | [address] | | | [place] [address] | + + + | Home Phone [...] | Author | [facility] | | | and [place]ana | + + + | Organization | [facility] | [...] Team Providers + +------+ + | Care Export Clerk Name | Role | Phone | + +------+ + PCP | Unavailable | + +------+ + Encounter Details +--------+ + + + + | Date | Type | Department | Care Team | Description | +--------+ + + + + | 10/28/ | Hospital | [facility] | Conversion | ESRD (end stage | | 2015 | Encounter | CENTER CV INTRA OP | Transaction, | renal disease) (HCC) | | | | [address] | Provider Unknown | | | | | [place], [place] | [phone] | | | | | [address] | | | | | | [phone] | Colten Hutchins MD | | | | | | [address] | | | | | | [place], [place] | | | | | | [address] | | | | | | | [...] | | | | | | [place] [address] | | | | | | [phone] | | | | | | | [...] COMPARISON STUDIES: 08/21/2014 | | | PRIMARY SETUP TECHNICIAN: Colten Hutchins MD, PhD, VI OPERATIONS: 1. [...] to the area of stenosis. A 4 Trinidadian | | | sheath was placed. Patient [...] | perianastomotic stenoses. COMPARISON STUDIES: 08/21/2014 PRIMARY SETUP TECHNICIAN: Colten | | MD Liset, PhD, RPVI [...] to the area of stenosis. A 4 Trinidadian sheath was placed. Patient was | | [...] COMPARISON STUDIES: 08/21/2014 | | | PRIMARY SETUP TECHNICIAN: Colten Hutchins MD, PhD, [facility] OPERATIONS: 1. | | | Left [...] to the area of stenosis. A 4 Trinidadian | | | sheath was placed. Patient [...] | perianastomotic stenoses. COMPARISON STUDIES: 08/21/2014 PRIMARY SETUP TECHNICIAN: Colten | | MD Liset, PhD, RPVI [...] to the area of stenosis. A 4 Trinidadian sheath was placed. Patient was | | [...] | | | | performed at [facility];[address] | K/uL | LAB | | | | [address];[place], [place] | | | | | | [address] | | | | + + + + + + | RED CELL | 3.88Comment: Testing | 3.70 - 5.10 | EXTERNAL | | | COUNT | performed at [facility];[address] | M/uL | LAB | | | | [address];[place] | | | | | | [address] | | | | + + + + + + | Hgb | 14.1Comment: Testing | 11.3 - 15.5 | EXTERNAL | | | | performed at [facility];[address] | g/dL | LAB | | | | [address];[place] | | | | | | [address] | | | | + + + + + + | Hematocrit, | 41.4Comment: Testing | 34.0 - 46.0 % | EXTERNAL | | | POC | performed at [facility];[address] | | LAB | | | | [address];[place] | | | | | | [address] | | | | + + + + + + | MCV | 106.7 (H)Comment: | 80.0 - 100.0 fl | EXTERNAL | | | | Testing performed at | | LAB | | | | [facility];[address];[place] [address] | | | | + + + + + + | MCH | 36.4 (H)Comment: Testing | 27.0 - 34.0 pg | EXTERNAL | | | | performed at [facility];[address] | | LAB | | | | [address];[place] | | | | | | [address] | | | | + + + + + + | MCHC | 34.1Comment: Testing | 32.0 - 35.5 | EXTERNAL | | | | performed at [facility];[address] | g/dL | LAB | | | | [address];[place] | | | | | | [address] | | | | + + + + + + | RDW-CV | 54.7 (H)Comment: Testing | 37 - 53 fl | EXTERNAL | | | | performed at [facility];[address] | | LAB | | | | [address];[place] | | | | | | [address] | | | | + + + + + + | Platelet | 168Comment: Testing | 150 - 400 K/uL | EXTERNAL | | | Count | performed at [facility];[address] | | LAB | | | Plasma | [address];[place] | | | | | | [address] | | | | + + + + + + | MPV | 9.1Comment: Testing | fl | EXTERNAL | | | | performed at [facility];[address] | | LAB | | | | [address];[place] | | | | | | [address] | | | | + + + [...] | | | | performed at [facility] | | | | | | [address];[place] | | | | | | [address] | | | | + + + [...] | | | | performed at [facility];[address] | mmol/L | LAB | | | | [address];[place] | | | | | | [address] | | | | + + + + + + | K | 3.9Comment: Testing | 3.5 - 4.9 | EXTERNAL | | | | performed at [facility];[address] | mmol/L | LAB | | | | [address];[place] | | | | | | [address] | | | | + + + + + + | Cl | 97 (L)Comment: Testing | 99 - 109 mmol/L | EXTERNAL | | | | performed at [facility];[address] | | LAB | | | | [address];[place] | | | | | | [address] | | | | + + + + + + | CO2 | 34 (H)Comment: Testing | 23 - 32 mmol/L | EXTERNAL | | | | performed at [facility];[address] | | LAB | | | | [address];[place] | | | | | | [address] | | | | + + + + + + | Anion Gap | 12Comment: Testing | 5 - 20 mmol/L | EXTERNAL | | | | performed at [facility];[address] | | LAB | | | | [address];[place] | | | | | | [address] | | | | + + + + + + | Glucose, | 87Comment: Testing | 65 - 99 mg/dL | EXTERNAL | | | Fasting | performed at [facility];[address] | | LAB | | | | [address];[place] | | | | | | [address] | | | | + + + + + + | BUN | 23Comment: Testing | 8 - 25 mg/dL | EXTERNAL | | | | performed at [facility];[address] | | LAB | | | | [address];[place] | | | | | | [address] | | | | + + + + + + | Creatinine | 6.4 (H)Comment: Testing | 0.50 - 1.00 | EXTERNAL | | | | performed at [facility];[address] | mg/dL | LAB | | | | [address];[place] | | | | | | [address] | | | | + + + + + + | BUN/Creatin | 4Comment: Testing | | EXTERNAL | | | ine Ratio | performed at [facility];[address] | | LAB | | | | [address];[place] | | | | | | [address] | | | | + + + + + + | Calcium | 9.5Comment: Testing | 8.5 - 10.5 | EXTERNAL | | | | performed at [facility];[address] | mg/dL | LAB | | | | [address];[place] | | | | | | [address] | | | | + + + + + + | Estimated | CALCULATION NOT | mL/min/1.73m2 | EXTERNAL | | | GFR | PERFORMED. RESULT NOT | | LAB | | | | VALID IF AGE LT 20 | | | | | | YEARS.Comment: Testing | | | | | | performed at [facility];[address] | | | | | | [address];[place], [place] | | | | | | [address] [...]
--- OUTSIDE RECORDS SUMMARY | ~2019-03-12 | XMS | Encounter Summary ---
Demographics + + + | Address | [address] | | | [place] [address] | + + + | Home Phone [...] [address] | | | | | [place] [address] | | + + + + + | Thania Mallory | ECON | [address] | | | | | [place] [address] | | + + + + + | Deidra Weldon | ECON | [address] | | | | | [place] | | | | | [address] | | + + + + + Care Team Providers + +------+ + | Care Resolution Specialist Name | Role | Phone | [...] Shun | | | | | [address] [facility] | [facility] | | | | | [place] [facility], | [place], [place] | | | | | [place] [address] | [address] | | | | | [phone] | | | +--------+ + + + [...] Denise | | | | | | [place] | | | | | | [address] | | | | | | [phone] | | | | | | | | +--------+ + + + + documented as of this encounter Visit Diagnoses Not on filedocumented in this encounter"
--- OUTSIDE RECORDS SUMMARY | ~2019-03-12 | XMS | Encounter Summary ---
Demographics + + + | Address | [address] | | | [place] [address] | + + + | Home Phone [...] | Located Within [facility] | | | and Josephana | + + + | Organization | Located [facility] | [...] Providers + +------+ + | Care Inspector Radar And Electronics Name | Role | Phone | + [...] + + | 01/22/ | Refill | [facility] | Daniela Alejandre | Medication Refill | | 2018 | | CARDIOLOGY GERALD Castellanos Care Process Manager | | | | | [address] | | | | | | [place] | | | | | | [address] | | | | | | [phone] | | | +--------+--------+ + + + [...] [place] | | | | | | [place] [address] | | | | | | [phone] | | | | | | | | +--------+---------+ + + + documented as of this encounter Visit Diagnoses Not on filedocumented in this encounter"
--- OUTSIDE RECORDS SUMMARY | ~2019-03-12 | XMS | Encounter Summary ---
Demographics + + + | Address | [address] | | | [place] [address] | + + + | Home Phone [...] | | | | | [place] [address] | | + + + + + | Thania Mallory | ECON | [address] | | | | | [place] [address] | | + + + + + | Deidra Weldon | ECON | [address] | | | | | [place] | | | | | [address] | | + + + + + Care Team Providers + +------+ + | Care Chimney Sweeper Name | Role | Phone | + [...] ANNALISA Griffin | [facility] | screens) | | | | [address] [place], | [place], [place] | | | | | [place] [address] | [address] | | | | | [phone] | | | +--------+ + + + [...] Denise | | | | | | [place] | | | | | | [address] | | | | | | [phone] | | | | | | | | +--------+ + + + + documented as of this encounter Visit Diagnoses Not on filedocumented in this encounter"
--- OUTSIDE RECORDS SUMMARY | ~2019-03-12 | XMS | Encounter Summary ---
Demographics + + + | Address | [address] | | | [place] [address] | + + + | Home Phone [...] | Author | [facility] | | | and [place]ana | + + + | Organization | [facility] [...] + +------+ + | Care Airframe And Powerplant Technician Name | Role | Phone | [...] | | KIDNEY TRANSPLANT | [address] [place], | | | | | [address] | [place] [address] | | | | | [address] [place] | [phone] | | | | | [address] | | | | | | [phone] | | | +--------+ + + + [...] DAV[place]SON | | | | | | [place] [address] | | | | | | [phone] | | | | | | | | +--------+---------+ + + + documented as of this encounter Visit Diagnoses Not on filedocumented in this encounter"
--- OUTSIDE RECORDS SUMMARY | ~2019-03-12 | XMS | Encounter Summary ---
Demographics + + + | Address | [address] | | | [place] [address] | + + + | Home Phone [...] | | | | | [place] [address] | | + + + + + | Thania Mallory | ECON | [address] | | | | | [place] [address] | | + + + + + | Deidra Weldon | ECON | [address] | | | | | [place] | | | | | [address] | | + + + + + Care Team Providers + +------+ + | Care Habilitation Training Specialist Name | Role | Phone | [...] | | | | | [address] [facility] | [facility] | | | | | [address] [facility], | [place], [place] | | | | | [place] [address] | [address] | | | | | [phone] | | | +--------+ + + + [...] Denise | | | | | | [place], [place] | | | | | | [address] | | | | | | [phone] | | | | | | | | +--------+ + + + + documented as of this encounter Visit Diagnoses Not on filedocumented in this encounter"
--- OUTSIDE RECORDS SUMMARY | ~2019-03-12 | XMS | Encounter Summary ---
Demographics + + + | Address | [address] | | | [place] [address] | + + + | Home Phone [...] | Author | [facility] | | | and [place] | + + + | Organization | [facility] [...] Providers + +------+ + | Care Plater Supervisor Name | Role | Phone | [...] | NEPHROLOGY [address] | [address] | | | | | [address] | [address] [place] | | | | | [place], [place] | [place] [address] | | | | | [address] | [phone] | | | | | [phone] | | | +--------+ + + + [...] [place] | | | | | | [place] [address] | | | | | | [phone] | | | | | | | | +--------+---------+ + + + documented as of this encounter Visit Diagnoses Not on filedocumented in this encounter"
--- OUTSIDE RECORDS SUMMARY | ~2019-03-12 | XMS | Encounter Summary ---
Demographics + + + | Address | [address] | | | [place] [address] | + + + | Home Phone [...] | Author | [facility] | | | and [place] | + + + | Organization | [facility] | [...] Providers + +------+ + | Care Clay Products Glazer Name | Role | Phone | + [...] | Procedures | [place], [place] | [place] [address] | | | | | [place] | [address] | Phone: | | | | | ANASTOMOSIS, | Phone: | [phone] | | | | | AV,ANY SITE | [phone] | Fax: | | | | | | Fax: | [phone] | | | | | | [phone] | | +--------+ + + + + [...] | | | | | disease) | [place], [place] | [address] | | | | | ([facility]) | [address] [place] | [place], | | | | | | [place], [place] | [place] [address] | | | | | | [address] | Phone: | | | | | | Phone: | [phone] | | | | | | [phone] | Fax: | | | | | | Fax: | [phone] | | | | | | [phone] | | +--------+ + + + + + Encounter Details +--------+---------+ + + + | Date | Type | Department | Care Team | Description | +--------+---------+ + + + | 12/18/ | Office | [facility] | Blake | End stage renal | | 2013 | Visit | SURGERY [address] | MD Antonieta, FACS [address] | disease (HCC) | | | | [place], [place] | [address] [facility] | (Primary Dx) | | | | [address] | [place] [address] | | | | | [phone] | [phone] | | | | | | | [...] Care ? Shahid Camargo Who is your Cop Breaker/Kidney Specialist ? Dr. Camp When was the current dialysis access placed? July 2013 at [facility] in [place] What problems are there with the current dialysis access? 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 Patient used to have PD catheter for dialysis 2012--[facility] in [place] . Came out Jul, 2013 . Then got RIGHT IJ catheter. Also got catheter at [facility]. Live in [place]. Go es to [facility] in [place] for dialysis. Now needs AVF. Is RIGHt hand dominant. No pains in hands. 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 Currently on [facility] for kidney transplant. Wants AVF [...] for acceptable candidacy. Will f/u with [facility] Transplant Team. Shahid Cruz Raman's notes were not available to be reviewed in clinic today. PAST MEDICAL HISTORY Past Medical History She has a past medical history of HSP (Henoch-Schonlein purpura) nephritis (HCC) (1987) and ESRD (end stage renal disease) ([facility]). Past Surgical History She Past Surgical History Procedure Date Peritoneal catheter Hemodialysis catheter Biopsy of kidney age 10 Allergies Allergen Reactions Morphine Other reaction(s): Rash Medications: Outpatient Encounter Prescriptions as of 02/20/2014 Medication Sig Dispense Refill cholecalciferol (VITAMIN D-3) 1,000 units tablet Take 1,000 Units by mouth Daily. cinacalcet (SENSIPAR) 30 mg tablet Take 30 mg by mouth Daily (with dinner). Epoetin Nadres (EPOGEN IJ) by IV Push route Three [...] REPORT: PATIENT NAME : Dara Weldon EQUIPMENT: SonBallLogic M-Turbo with 10-5 mHertz probe. INDICATIONS: Dialysis [...] [place] | | | | | | [place] [address] | | | | | | [phone] | | | | | | | [...]
--- OUTSIDE RECORDS SUMMARY | ~2019-03-12 | XMS | Encounter Summary ---
Demographics + + + | Address | [address] | | | [place] [address] | + + + | Home Phone [...] | | | | | [place] [address] | | + + + + + | Thania Mallory | ECON | [address] | | | | | [place] [address] | | + + + + + | Deidra Weldon | ECON | [address] | | | | | [place] | | | | | [address] | | + + + + + Care Team Providers + +------+ + | Care Manager Environmental Services Name | Role | Phone | [...] | [address] | [facility] | | | | | Park [facility], | [place], [place] | | | | | [place] [address] | [address] | | | | | [phone] | | | +--------+ + + + [...] | | | | | | [place] | | | | | | [address] | | | | | | [phone] | | | | | | | | +--------+ + + + + documented as of this encounter Visit Diagnoses Not on filedocumented in this encounter"
--- OUTSIDE RECORDS SUMMARY | ~2019-03-12 | XMS | Encounter Summary ---
Demographics + + + | Address | [address] | | | [place] [address] | + + + | Home Phone [...] | | | | | [place] [address] | | + + + + + | Thania Mallory | ECON | [address] | | | | | [place] [address] | | + + + + + | Deidra Weldon | ECON | [address] | | | | | [place] | | | | | [address] | | + + + + + Care Team Providers + +------+ + | Care Extension Edger Name | Role | Phone | + [...] | | | | | [address] [place], | [place], [place] | | | | | [place] [address] | [address] | | | | | [phone] | | | +--------+ + + + [...] Denise | | | | | | [place] | | | | | | [address] | | | | | | [phone] | | | | | | | | +--------+ + + + + documented as of this encounter Visit Diagnoses Not on filedocumented in this encounter"
--- OUTSIDE RECORDS SUMMARY | ~2019-03-12 | XMS | Encounter Summary ---
Demographics + + + | Address | [address] | | | [place] [address] | + + + | Home Phone [...] | Author | [facility] | | | and Josephana | + + + | Organization | [facility] | [...] Team Providers + +------+ + | Care Ct Manager Name | Role | Phone | + +------+ + PCP | Unavailable | + +------+ + Encounter Details +--------+ + + + + | Date | Type | Department | Care Team | Description | +--------+ + + + + | 04/08/ | Hospital | [facility] | Rik Simon MD | | | 2015 | Encounter | [facility] | [address] | | | | | [address] | [place], [place] | | | | | [place], [place] | [address] | | | | | [address] | [phone] | | | | | [phone] | | | +--------+ + + + [...] 142 Date of Service: 04/08/141425 Status: Signed Yarn Skeins Examiner: Coral Amador RPH (Pharmacist) Clinical Pharmacy Note - Renal Dose Adjustment Dara Weldon 19 y.o. female Ht Readings from Last 1 Encounters: 04/08/14 1.676 m (5' 6") (75 %*, Z = 0.69) * Growth percentiles are based on [facility] 2-20 Years data. Wt Readings from Last 1 Encounters: 04/08/14 96.2 kg (212 lb 1.3 oz) (98 %*, Z = 2.12) * Growth percentiles are based on [facility] 2-20 Years data. CREATININE Date Value Ref Range Status 04/08/2014 8.68* 0.50 - 1.00 mg/dL Final Testing performed at [facility] [place] [address];[place] [address] ESRD on HD Pharmacy to renally adjust [...] Note by Cheryl Rubalcava RN at 04/08/14 6154 Author: Cheryl Rubalcava RN Service: (none) Author Type: Registered Nurse Filed: 04/08/14 1443 Date of Service: 04/08/141407 Status: Signed [place] Examiner: Cheryl Rubalcava RN (Registered Nurse) Pt and [...] 132 Date of Service: 04/08/141320 Status: Signed Yarn Skeins Examiner: Cheryl Rubalcava RN (Registered Nurse) Pt family [...] [place] | | | | | | [place] [address] | | | | | | [phone] | | | | | | | [...] LAB | | | | Blvd;[place] [address] | | | | + + + + + + | Antibody | NEGATIVE | | EXTERNAL | | | Screen | | | LAB | | + + + + + + | Antibody | Testing performed at | | EXTERNAL | | | Screen | [facility] | | LAB | | | | Blvd;[place] [address] | | | | + + + + + + | BB BAND | [id number] | | EXTERNAL | | | | | | LAB | | + + + + + + | BB BAND | Testing performed at | | EXTERNAL | | | | [facility];[address] | | LAB | | | | Blvd;[place] [address] | | | | + + + [...] [place] | | | | | | [address] | | | | + + + + + + | K | 4.1Comment: SLT | 3.5 - 4.9 | EXTERNAL | | | | HEMOLYSISTesting | mmol/L | LAB | | | | performed at [facility];[address] | | | | | [address];[place] | | | | | | [address] | | | | + + + + + + | Cl | 102Comment: Testing | 99 - 109 mmol/L | EXTERNAL | | | | performed at [facility];[address] | | LAB | | | | [address];[place] | | | | | | [address] | | | | + + + + + + | CO2 | 28Comment: Testing | 23 - 32 mmol/L | EXTERNAL | | | | performed at [facility];[address] | | LAB | | | | [address];[place] | | | | | | [address] | | | | + + + + + + | Anion Gap | 13Comment: Testing | 5 - 20 mmol/L | EXTERNAL | | | | performed at [facility];[address] | | LAB | | | | [address];[place] | | | | | | [address] | | | | + + + + + + | Glucose, | 87Comment: Testing | 65 - 99 mg/dL | EXTERNAL | | | Fasting | performed at [facility];[address] | | LAB | | | | [address];[place] | | | | | | [address] | | | | + + + + + + | BUN | 32 (H)Comment: Testing | 8 - 25 mg/dL | EXTERNAL | | | | performed at [facility];[address] | | LAB | | | | [address];[place] | | | | | | [address] | | | | + + + + + + | Creatinine | 8.68 (H)Comment: Testing | 0.50 - 1.00 | EXTERNAL | | | | performed at [facility];[address] | mg/dL | LAB | | | | [address];[place] | | | | | | [address] | | | | + + + + + + | BUN/Creatin | 4Comment: Testing | | EXTERNAL | | | ine Ratio | performed at [facility];[address] | | LAB | | | | [address];[place] | | | | | | [address] | | | | + + + + + + | Calcium | 8.8Comment: NOTE NEW | 8.5 - 10.5 | EXTERNAL | | | | REFERENCE RANGETesting | mg/dL | LAB | | | | performed at [facility];[address] | | | | | | [address];[place] | | | | | | [address] | | | | + + + + + + | Estimated | CALCULATION NOT | mL/min/1.73m2 | EXTERNAL | | | GFR | PERFORMED. RESULT NOT | | LAB | | | | VALID IF AGE LT 20 | | | | | | YEARS.Comment: Testing | | | | | | performed at [facility];[address] | | | | | | [address];[place], [place] | | | | | | [address] | | | | + + + [...]
--- OUTSIDE RECORDS SUMMARY | ~2019-03-12 | XMS | Encounter Summary ---
Demographics + + + | Address | [address] | | | [place] [address] | + + + | Home Phone [...] | | | | | [place] [address] | | + + + + + | Thania Mallory | ECON | [address] | | | | | [place] [address] | | + + + + + | Deidra Weldon | ECON | [address] | | | | | [place] | | | | | [address] | | + + + + + Care Team Providers + +------+ + | Care Shuttle Operator Name | Role | Phone | [...] | purpura | [address] | [facility] [address] | | | | | ([facility] HSP | [place] | [address] | | | | | ([address]elie | [address] | Mailcode: | | | | | nlein | [place], [place] | [place] | | | | | purpura) | [address] | [place] | | | | | nephritis | Phone: | [place], [place] | | | | | ([facility]) | [phone] | [address] | | | | | Hemodialysis | Fax: | Phone: | | | | | status | [phone] | [phone] | | | | | ([facility]) | | Fax: | | | | | Chronic | | [phone] | | | | | kidney | | | | | | | disease, | | | | | | | stage V | | | | | | | ([facility]) | | | | | | | [...] | | 2014 | Encounter | at [facility] [address] | | | | | | [address] Mailcode: | | | | | | [id number] | | | | | | [place], [place] | | | | | | [address] | | | | | | [phone] | | | +--------+ + + + [...] Denise | | | | | | [place], [place] | | | | | | [address] | | | | | | [phone] | | | | | | | [...] | e | 1:18 PM | MEDICARE 9212 HSP | procedure are in the | [...] 2:35 PM PST Echocardiography Laboratory | | [address] | | [place] [address] | | ; | | [id number] | | | | Transthoracic Echocardiogram Report | | | | | | NAME: DARA WELDON Study Date: 01/20/2015 1:18:29 PM | | Order #: [id number] ACC #: [id number] | | | | | | : [...] on 01/20/2015 at 2:35:17 PM | | Food Service Kitchen Supervisor: YARITZA KLINE RDEDNA | | | | | | cc: | | | | | | Modes utilized | | TTE 38355; Spectral Doppler 20652; Color flow Doppler 68772; | | | | | | | | Final | + + + + + + + | Performing | Address | City/State/Zipcode | Phone Number | | Organization | | | | + + + + + | [facility] | [address] | [place], [place] | | | CARDIOLOGY | [address] | [address] | | + + + + + [...]
--- OUTSIDE RECORDS SUMMARY | ~2019-03-12 | XMS | Encounter Summary ---
Demographics + + + | Address | [address] | | | [place] [address] | + + + | Home Phone [...] [facility] | | | and [place] | + + + | Organization | [facility] | | | [...] Team Providers + +------+ + | Care Bar Steward Name | Role | Phone | [...] + + | 01/22/ | Refill | [facility] | Daniela Alejandre | Medication Refill | | 2018 | | CARDIOLOGY GERALD Castellanos Rehabilitation Caseworker | | | | | [address] | | | | | | [place] | | | | | | [address] | | | | | | [phone] | | | +--------+--------+ + + + [...] DAV[place] | | | | | | [place] [address] | | | | | | [phone] | | | | | | | | +--------+---------+ + + + documented as of this encounter Visit Diagnoses Not on filedocumented in this encounter"
--- OUTSIDE RECORDS SUMMARY | ~2019-03-12 | XMS | Encounter Summary ---
[...] | | | | | [place] [address] | | + + + + + | Thania Mallory | ECON | [address] | | | | | [place] [address] | | + + + + + | Deidra Weldon | ECON | [address] | | | | | [place] | | | | | [address] | | + + + + + [...] Family sheet & | | | | [address] | [address] | crossmatch report) | | | | Loop Mailcode: | [place], [place] | | | | | [address] Physician's | [address] | | | | | [address] | [phone] | | | | | [place], [place] | | | | | | [address] | | | | | | [phone] | | | +--------+ + + + [...] Denise | | | | | | [place], [place] | | | | | | [address] | | | | | | [phone] | | | | | | | | +--------+ + + + + documented as of this encounter Visit Diagnoses Not on filedocumented in this encounter"
--- OUTSIDE RECORDS SUMMARY | ~2019-03-12 | XMS | Encounter Summary ---
Demographics + + + | Address | [address] | | | [place] [address] | + + + | Home Phone [...] | | | | | [place] [address] | | + + + + + | Thania Mallory | ECON | [address] | | | | | [place] [address] | | + + + + + | Deidra Weldon | ECON | [address] | | | | | [place] | | | | | [address] | | + + + + + Care Team Providers + +------+ + | Care Army Ranger Name | Role | Phone | + [...] Evaluation | | | | [address] [place], | [place], [place] | (pre-listing | | | | [place] [address] | [address] | pediatric [place] | | | | [phone] | | update) | +--------+ + + [...] Denise | | | | | | [place] | | | | | | [address] | | | | | | [phone] | | | | | | | | +--------+ + + + + documented as of this encounter Visit Diagnoses Not on filedocumented in this encounter"
--- OUTSIDE RECORDS SUMMARY | ~2019-03-12 | XMS | Encounter Summary ---
Demographics + + + | Address | [address] | | | [place] [address] | + + + | Home Phone [...] | Author | [facility] | | | and [place] | + + + | Organization | [facility] | [...] Providers + +------+ + | Care Ski Binding Fitter And Repairer Name | Role | Phone | [...] Dx); Panic disorder | | | | [place], [place] | | | | | | [address] | | | | | | [phone] | | | +--------+ + + + [...] [place] | | | | | | [place] [address] | | | | | | [phone] | | | | | | | | +--------+---------+ + + + documented as of this encounter Visit Diagnoses + + | Diagnosis | + + | Generalized anxiety disorder - Primary | + + | Panic disorder Panic disorder without agoraphobia | + + documented in this encounter"
--- OUTSIDE RECORDS SUMMARY | ~2019-03-12 | XMS | Encounter Summary ---
Demographics + + + | Address | [address] | | | [place] [address] | + + + | Home Phone [...] | [facility] | | | and [place] | + + + | Organization | [facility] | [...] Providers + +------+ + | Care Air Conditioning Coil Assembler Name | Role | Phone | [...] | | KIDNEY TRANSPLANT | [address] [place], | | | | | [address] | [place] [address] | | | | | [address] [place] [address] | [phone] | | | | | [address] | | | | | | [phone] | | | +--------+ + + + [...] also called the Fina Sparrow social service coordinator, and let her know t hat Dara [...] | | | | | [place] [address] | | | | | | [phone] | | | | | | | | +--------+---------+ + + + documented as of this encounter Visit Diagnoses Not on filedocumented in this encounter"
--- OUTSIDE RECORDS SUMMARY | ~2019-03-12 | XMS | Encounter Summary ---
Demographics + + + | Address | [address] | | | [place] [address] | + + + | Home Phone [...] Author | [facility] | | | and [place] | + + + | Organization | [facility] | | [...] Team Providers + +------+ + | Care Batter Mixer Name | Role | Phone [...] NEPHROLOGY [address] | MD [address] | (Asymptomatic) | | | | [address] | [address] [place] | | | | | [place], [place] | [place] [address] | | | | | [address] | [phone] | | | | | [phone] | | | +--------+ + + + [...] 3:01 PM PDTHemodialysis progress note e-faxed to [facility], Lianna Joy MD, [facility] Renal Transplant Clinic on 11/29/13.Electronical ly signed by Marilyn Palumbo at 11/29/2013 3:02 PM Daniela Marquez MD - 11/22/2013 11 :03 AM PDT Comprehensive Dialysis Monthly Note Date of visit: 11/22/2013 Dialysis Clinic: [facility] Mode of dialysis: Hemodialysis Dialysis prescription: MWF, [...] 2012. Access: R chest catheter. Re-referred to [facility] transplant in Oct 2013 by chief of pediatric urology. Peritonitis, dialysis-associated (HCC) 07/29/2013 Note Last Updated: 07/29/2013 Due to MSSA. Had tunneled infection as well. PD catheter removed in July 2013. On Keflex till 08/01/13. History of Henoch-Schonlein purpura Note Last Updated: 07/29/2013 Diagnosed at age 10[address] Joy, chief of pediatric urology. Anemia in ESRD (end-stage renal disease) (HCC) [...] had any infectious complication to date. -per [facility] transplant, AVF is not recommended [...] been referred to [facility] in [place] [address] Joy. -followed up with [facility] Lianna Joy, [facility] Pediatric Nephrology [facility] Renal transplant documented in this [...] [place] | | | | | | [place] [address] | | | | | | [phone] | | | | | | | [...]
--- OUTSIDE RECORDS SUMMARY | ~2019-03-12 | XMS | Encounter Summary ---
Demographics + + + | Address | [address] | | | [place] [address] | + + + | Home Phone [...] + | Author | [facility] | | | and Josephana | + + + | Organization | [facility] [...] Providers + +------+ + | Care Tube Maker Name | Role | Phone | [...] NEPHROLOGY [address] | M, DO [address] | | | | | [address] | [place] | | | | | [place], [place] | [place], [place] | | | | | [address] | [address] | | | | | [phone] | | | +--------+ + + + [...] PSTOutside record: [facility] patient starter program from [facility], dos: 02/12/17. Sent to merged with [place] [...] [address] | | | | | | [place] [address] | | | | | | [phone] | | | | | | | | +--------+---------+ + + + documented as of this encounter Visit Diagnoses Not on filedocumented in this encounter"
--- OUTSIDE RECORDS SUMMARY | ~2019-03-12 | XMS | Encounter Summary ---
Demographics + + + | Address | [address] | | | [place] [address] | + + + | Home Phone [...] | | | | | [place] [address] | | + + + + + | Thania Mallory | ECON | [address] | | | | | [place] [address] | | + + + + + | Deidra Weldon | ECON | [address] | | | | | [place] | | | | | [address] | | + + + + + Care Team Providers + +------+ + | Care Shrimp Packer Name | Role | Phone | [...] Transplant Services | RN [address] [facility] | list) | | | | [address] | [facility] | | | | | [facility], | [place], [place] | | | | | [place] [address] | [address] | | | | | [phone] | | | +--------+ + + + [...] Denise | | | | | | [place], [place] | | | | | | [address] | | | | | | [phone] | | | | | | | | +--------+ + + + + documented as of this encounter Visit Diagnoses Not on filedocumented in this encounter"
--- OUTSIDE RECORDS SUMMARY | ~2019-03-12 | XMS | Encounter Summary ---
Demographics + + + | Address | [address] | | | [place] [address] | + + + | Home Phone [...] | Author | [facility] | | | and Josephana | + + + | Organization | [facility] | | [...] Providers + +------+ + | Care Group Exercise Class Instructor Name | Role | Phone | [...] + + | 12/10/ | Hospital | [facility] | Rayray Powers MD | Sepsis, due to | | 2019 - | Encounter | [facility] | [address] | unspecified | | | | CARE FLOOR [address] | [place], [place] | organism, | | 12/14/ | | [address] | [address] | unspecified whether | | 2019 | | [place], [place] | [phone] | acute organ | | | | [address] | | dysfunction present | | | | [phone] | Lee Harris MD | ([facility]LY [facility]) (Primary Dx); | | | | | [address] | Pneumonia of right | | | | | [place] [address] | lower lobe due to | | | | | [phone] | infectious organism | | | | | | ([facility]); Hypoxia; | | | | | Jw Neir, DO [address] | Hypervolemia, | | | | | [address] | unspecified | | | | | [place] [address] | hypervolemia type; | | | | | [phone] | ESRD on dialysis | | | | | | ([facility]); Hyperkalemia; | | | | | | Acute on chronic | | | | | | respiratory failure | | | | | | with hypoxia and | | | | | | hypercapnia ([facility]); | | | | | | Acute respiratory | | | | | | failure with hypoxia | | | | | | ([facility]); Anemia in | | | | | | ESRD (end-stage | | | | | | renal disease) | | | | | | ([facility]); At high risk | | | | | | for electrolyte | | | | | | imbalance; Awaiting | | | | | | organ transplant | | | | | | status; 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 | | | | | | failure ([facility]); | | | | | | Chronic right-sided | | | | | | heart failure ([facility]); | | | | | | 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 | | | | | | ([facility]); ESRD on | | | | | | hemodialysis ([facility]); | | | | | | History [...] | | | | | function ([facility]); | | | | | | Moderate to severe | | | | | | pulmonary | | | | | | hypertension ([facility]); | | | | | | Low grade fever; | | | | | | Noncompliance of | | | | | | patient with renal | | | | | | dialysis ([facility]); | | | | [...] [place]. [facility] Service: Hospitalist Physician Discharge Summary [...] Gram-positive bacteria 12/12/2018 Clotted dialysis access ([facility]) 2014 Congestive heart failure ([facility]) ESRD (end stage renal disease) ([facility]) HSP (Henoch-Schonlein purpura) nephritis ([facility]) 1987 Hypertension Pericardial effusion without cardiac tamponade 11/07/2018 Past Surgical History: Procedure Laterality Date ABDOMEN SURGERY AV FISTULA REPAIR 02/24/2014 LEFT Radical Cephalic Fistula Creation; Laterality: Left; Surgeon: Blake Chavarria MD ; Location: [facility] MAIN OR AV FISTULA REPAIR Left 03/07/2014 Procedure: AV FISTULA - GRAFT REPAIR/REVISION; Surgeon: Rik Simon MD; Location: [facility] OR; Service: Vascular; Laterality: Left; biopsy of kidney age 10 DIALYSIS FISTULA CREATION 04/08/2014 Procedure: DIALYSIS CATHETER - INSERTION; Surgeon: Rik Simon MD; Location: [facility] OR ; Service: Vascular; Laterality: N/A; tunneled catheter.br hemodialysis catheter KIDNEY BIOPSY Left 2003 OTHER SURGICAL HISTORY LAPAROSCOPIC PERITONEAL DIALYSIS CATHETER INSERTION - x2 OTHER SURGICAL HISTORY Right 07/2013 LAPAROSCOPIC PERITONEAL DIALYSIS CATHETER INSERTION - current dialysis access MWF dialysis OTHER SURGICAL HISTORY Left 06/24/2014 SUPERFICIALIZATION OF AV FISTULA - Procedure: AV FISTULA - SUPERFICIALIZATION; Surgeon: Emanuel Simon MD; Location: [facility] MAIN OR; Service: Vascular; Laterality: Left; OTHER SURGICAL HISTORY Left 04/08/2014 AV FISTULA PLACEMENT - Procedure: AV FISTULA; Surgeon: Rik Simon MD; Location: [facility] OR; Service: Vascular; Laterality: Left; cephalic [...] hours. No results for input(s): PHART, PO2ART, CET5UVQ, J8HWKRHH, BEART in the last 168 hours. No results for input(s): APTT, INR, PTT in the last 168 hours. No results for input(s): TSH in the last 168 hours. Invalid input(s): T3FREE, FREET4 No results for input(s): TROPONINT in the last 168 hours. Invalid input(s): CKTOTAL, TROPONINI, CKMBINDEX Disposition: home No discharge procedures on file. Follow up: Jonathan Alonso MD [address] [facility] [address] Schedule an appointment as soon as possible for a visit hospital follow up Jorje Stewart, [address] [facility] [address] [facility] [address] Schedule an appointment as soon as possible [...] be sent through Care Everywhere.Leti Whitt (Adult) (Kazakh)documented in this encounter Medications at Time of [...] Yanes MD - 12/14/2018 10:16 AM PDT [facility] Service: Infectious Diseases Progress Note [...] Procedure Component Value Units Date/Time Culture, Blood [[id number]] Collected: 12/12/18 1943 Order Status: Canceled Lab Status: No result Specimen: Peripheral Blood Culture, Body Fluid Sterile [[id number]] Order Status: No result Lab Status: No result Specimen: Body Fluid from Pleural Fluid, Right Culture, Blood [[id number]] Collected: 12/12/18 0502 Order Status: Completed Lab Status: Preliminary result Updated: 12/13/18 1324 Specimen: Peripheral Blood Special Requests RWRIST Special Requests Testing performed at [facility];[address] [place] [address] RESULT NO GROWTH AT THIS TIME RESULT Testing performed at [facility], [address] [place] [address] Comment: Testing performed at [facility], [address] [place] [address] Influenza A and B RNA, NAAT [[id number]] Collected: 12/11/18 1556 Order Status: Completed Lab Status: Final result Updated: 12/11/18 1619 Influenza A NEGATIVE Influenza B NEGATIVE Comment: Testing performed by Molecular Methodology Testing performed at [facility];[address] [place] [address] Flu Swab Collection [[id number]] Collected: 12/11/18 1546 Order Status: Completed Lab Status: Final result Updated: 12/11/18 1549 Specimen: Tissue from Nasopharynx Collection SPECIMEN RECEIVED IN LAB Comment: Testing performed at [facility];[address] [place] [address] Culture, Blood [[id number]] Collected: 12/11/18 0615 Order Status: Completed Lab Status: Preliminary result Updated: 12/12/18 1134 Specimen: Peripheral Blood Special Requests RAC Special Requests Testing performed at [facility];[address] [place] [address] RESULT NO GROWTH AT THIS TIME RESULT Testing performed at [facility], [address] [place] [address] Comment: Testing performed at [facility], [address] [place] [address] Culture, Blood [[id number]] (Abnormal) Collected: 12/10/18 2343 Order Status: Completed Lab Status: Final result Updated: 12/13/18 1009 Specimen: Blood from Line Gram Stain Result -- GRAM POSITIVE COCCI IN CLUSTERS SEEN IN AEROBIC BOTTLE SEEN IN ANAEROBIC BOTTLE Gram Stain Result -- SMEAR RESULTS CALLED TO AND READ BACK BY: Brigitte CARTER @ 7202 12/11/18 CDS RESULT STAPHYLOCOCCUS SPECIES, COAGULASE NEGATIVE RESULT GROWTH IN TWO OF TWO BOTTLES RESULT -- TIME TO DETECTION: 0.69 DAYS RESULT POSSIBLE CONTAMINANT, CLINICAL CORRELATION REQUIRED. RESULT Testing performed at [facility], [address] [place] [address] Comment: Testing performed at [facility], [address] [place] [address] Microbiology Results (72 hrs) Procedure Component Value Units Date/Time Culture, Blood [[id number]] Collected: 12/12/18 0502 Order Status: Completed Lab Status: Preliminary result Updated: 12/13/18 1324 Specimen: Peripheral Blood Special Requests RWRIST Special Requests Testing performed at [facility];[address] [place] [address] RESULT NO GROWTH AT THIS TIME RESULT Testing performed at [facility], [address] [place] [address] Comment: Testing performed at [facility], [address] [place] [address] Influenza A and B RNA, NAAT [[id number]] Collected: 12/11/18 1556 Order Status: Completed Lab Status: Final result Updated: 12/11/18 1619 Influenza A NEGATIVE Influenza B NEGATIVE Comment: Testing performed by Molecular Methodology Testing performed at [facility];[address] [place] [address] Flu Swab Collection [[id number]] Collected: 12/11/18 1546 Order Status: Completed Lab Status: Final result Updated: 12/11/18 1549 Specimen: Tissue from Nasopharynx Collection SPECIMEN RECEIVED IN LAB Comment: Testing performed at [facility];[address] [place] [address];[place] [address] IMAGING: No new images for review today. [...] attending provider: Jw Neri DO . Reno Thackre MD, MPH Infectious Diseases 12/14/18 Cliff Pozo [...] was discussed with Dr. Neri today. Cliff Duaret MD 12/13/2018 Portions of my previous notes have been carried over for continuity of chart review/care. She was seen earlier in the day and charting was completed later after rounds. Dictation software, Doutor Recomenda, was used which may contain error for [...] Santos, DO - 12/04 2:42 PM PDT [facility] Service: Hospitalist Progress Note Pt: [...] PASP is 73 mmHg - Baseline weight [id number]. In acute exacerbation - HD per nephrology [...] this note might be different from the [facility] Service: Infectious Diseases Progress Note Hospital Day: [...] Consult Continuous Infusions: heparin 400 Units/hr (12/12/18 6264) PRN Meds:.acetaminophen, albumin, albuterol-ipratropium, nitroglycerin, ondansetron, oxyCOD [...] Procedure Component Value Units Date/Time Culture, Blood [[id number]] Collected: 12/12/18 194 Order Status: Canceled Lab Status: No result Specimen: Peripheral Blood Culture, Body Fluid Sterile [[id number]] Order Status: No result Lab Status: No result Specimen: Body Fluid from Pleural Fluid, Right Culture, Blood [[id number]] Collected: 12/12/18 0502 Order Status: Sent Lab Status: In process Updated: 12/12/18 1005 Specimen: Peripheral Blood Influenza A and B RNA, NAAT [[id number]] Collected: 12/11/18 1556 Order Status: Completed Lab Status: Final result Updated: 12/11/18 1619 Influenza A NEGATIVE Influenza B NEGATIVE Comment: Testing performed by Molecular Methodology Testing performed at [facility];[address] [place] [address] Flu Swab Collection [[id number]] Collected: 12/11/18 1546 Order Status: Completed Lab Status: Final result Updated: 12/11/18 1549 Specimen: Tissue from Nasopharynx Collection SPECIMEN RECEIVED IN LAB Comment: Testing performed at [facility];[address] [place] [address] Culture, Blood [[id number]] Collected: 12/11/18 0615 Order Status: Completed Lab Status: Preliminary result Updated: 12/12/18 1134 Specimen: Peripheral Blood Special Requests RAC Special Requests Testing performed at [facility];[address] [place] [address] RESULT NO GROWTH AT THIS TIME RESULT Testing performed at [facility], [address] [place] [address] Comment: Testing performed at [facility], [address] [place] [address] Culture, Blood [[id number]] (Abnormal) Collected: 12/10/18 2343 Order Status: Completed Lab Status: Final result Updated: 12/13/18 1009 Specimen: Blood from Line Gram Stain Result -- GRAM POSITIVE COCCI IN CLUSTERS SEEN IN AEROBIC BOTTLE SEEN IN ANAEROBIC BOTTLE Gram Stain Result -- SMEAR RESULTS CALLED TO AND READ BACK BY: Brigitte CARTER 6RDerick @ 3452 12/11/18 CDS RESULT STAPHYLOCOCCUS SPECIES, COAGULASE NEGATIVE RESULT GROWTH IN TWO OF TWO BOTTLES RESULT -- TIME TO DETECTION: 0.69 DAYS RESULT POSSIBLE CONTAMINANT, CLINICAL CORRELATION REQUIRED. RESULT Testing performed at [facility], [address] [place] [address] Comment: Testing performed at [address] [address] Microbiology Results (72 hrs) Procedure Component Value Units Date/Time Culture, Blood [[id number]] Collected: 12/12/18 0502 Order Status: Sent Lab Status: In process Updated: 12/12/18 1005 Specimen: Peripheral Blood Influenza A and B RNA, NAAT [[id number]] Collected: 12/11/18 1556 Order Status: Completed Lab Status: Final result Updated: 12/11/18 1619 Influenza A NEGATIVE Influenza B NEGATIVE Comment: Testing performed by Molecular Methodology Testing performed at [facility];[address] [place] [address] Flu Swab Collection [[id number]] Collected: 12/11/18 1546 Order Status: Completed Lab Status: Final result Updated: 12/11/18 1549 Specimen: Tissue from Nasopharynx Collection SPECIMEN RECEIVED IN LAB Comment: Testing performed at [facility];[address] [place] [address] Culture, Blood [[id number]] Collected: 12/11/18 0615 Order Status: Completed Lab Status: Preliminary result Updated: 12/12/18 1134 Specimen: Peripheral Blood Special Requests RAC Special Requests Testing performed at [facility];[address] [place] [address] RESULT NO GROWTH AT THIS TIME RESULT Testing performed at [facility], [address] [place] [address] Comment: Testing performed at [facility], [address] [place] [address] Culture, Blood [[id number]] (Abnormal) Collected: 12/10/18 2343 Order Status: Completed Lab Status: Final result Updated: 12/13/18 1009 Specimen: Blood from Line Gram Stain Result -- GRAM POSITIVE COCCI IN CLUSTERS SEEN IN AEROBIC BOTTLE SEEN IN ANAEROBIC BOTTLE Gram Stain Result -- SMEAR RESULTS CALLED TO AND READ BACK BY: Brigitte CARTER @ 5193 12/11/18 CDS RESULT STAPHYLOCOCCUS SPECIES, COAGULASE NEGATIVE RESULT GROWTH IN TWO OF TWO BOTTLES RESULT -- TIME TO DETECTION: 0.69 DAYS RESULT POSSIBLE CONTAMINANT, CLINICAL CORRELATION REQUIRED. RESULT Testing performed at [facility], [address] [place] [address] Comment: Testing performed at [facility], [address] [place] [address] IMAGING: No new images for review today. [...] vancomycin pending f falguni results. To use ESTEAFNY/Fe use to keep Hb at target range [...] was completed later after rounds. Dictation software, Doutor Recomenda, was used which may contain error for [...] heparin 400 Units/hr (12/12/18 0827) Vida Whittaker, [facility] - 12/12/2018 1:37 PM PDTClinical [...] e might be different from the original. [facility] Adult Hospitalist Progress Note Hospital [...] Ma, MD 8:29 12/12/2018 rost, Taylor Linda, [facility] - 1 7:46 PM PDT [...] chart review complete. Electronically signed by Leonard Garya RN at 12/11 4:15 PM Conner Carmona [...] E | | | | | | [place] [address] | | | | | | [phone] | | | | | | | [...] R?MRN: | | | | | | [id number] | | | [id number] | | | riteri | | | [...] | | | St. | | | [place] | | | y | | | [...] | | | St. | | | [place] | | | y | | | [...] | | | St. | | | [place] | | | y | | | [...] | | | St | | | [place] | | | y | | | [...] St | | | | | | [place] | | | y | | | [...] | | | St. | | | [place] | | | y | | | [...] | | | St. | | | [place] | | | y H. | | [...] | | | St. | | | [place] | | | y H. | | [...] | | | St. | | | [place] | | | y H. | | [...] | | | St. | | | [place] | | | y H. | | [...] | | | St. | | | [place] | | | y H. | | [...] | | | St. | | | [place] | | | y H. | | [...] | | | St. | | | [place] | | | y H. | | [...] | | | MD | | | Wool [employer]pler | | | al | | | [...] | | | [id number] | | | [id number] | | | 2b | | | [...] + | Billie Gupta MD 12/14/2018 9:54 [facility] | | | [facility] Hemo-Dialysis Procedure note Pt is [...] QB 450 AP | | | -200 [address] 170 Constitutional: pt appears without distress. on [...] | | | | | | at [facility], [address] | | | | | | [facility], | | | | | | [place] [address] | | | | | |Testing performed at [facility], [address] [place] [address] | | | | | | | | | | + + +---- + + + + + | Specimen | + + | Blood | + + + + + + + | Performing | Address | City/State/Zipcode | Phone Number | | Organization | | | | + + + + + | [facility] | [address] | [place] [address] | [phone] | + + + + + Basic [...] 7 (L)Comment: GFR <60: | >60 | [facility] | | | GFR | [...] | | | | | | [facility]D [facility] traceable | | | | | | equation.Testing | | | | | | performed at [facility], [address] | | | | | | [facility], | | | | | | [place] [address] | | | | + + + + + + + + | Specimen | + + | Blood | + + + + + + + | Performing | Address | City/State/Zipcode | Phone Number | | Organization | | | | + + + + + | [facility] | [address] | [place] [address] | [phone] | + + + + + XR [...] | | | | performed at [facility], [address] | | | | | | [facility], | | | | | | [place] [address] | | | | + + + + + + + + | Specimen | + + | Blood | + + + + + + + | Performing | Address | City/State/Zipcode | Phone Number | | Organization | | | | + + + + + | [facility] | [address] | [place] [address] | [phone] | + + + + + [place] [...] [place]RE[place] | | | | performed at [facility], [address] | | LABORATORY | | | | [address] | | | | | | [place] [address] | | | | + + + + + + + + | Specimen | + + | Blood | + + + + + + + | Performing | Address | City/State/Zipcode | Phone Number | | Organization | | | | + + + + + | [facility] | [address] | [place] [address] | [phone] | + + + + + Culture, [...] Special | Testing performed at | | [facility] | | | Requests | [address] | | LABORATORY | | | | [place] [address] | | | | + + + + + + | RESULT | NO GROWTH 6 DAYS | | [facility] | | | | | | LABORATORY | | + + + + + + | RESULT | Testing performed at | | [facility] | | | | [facility], [address] [facility] | | LABORATORY | | | | [place] | | | | | | [address]Lkinbyl: Testing | | | | | | performed at [facility], [address] | | | | | | [place] | | | | | | [address] | | | | + + + + + + + + | Specimen | + + | Blood - Peripheral | | blood specimen | | (specimen) | + + + + + + + | Performing | Address | City/State/Zipcode | Phone Number | | Organization | | | | + + + + + | [facility] | [address] | [place] [address] | [phone] | + + + + + CBC [...] [facility] | | | | performed at [facility], [address] | | LABORATORY | | | | [address], | | | | | | [place] [address] | | | | + + + + + + + + | Specimen | + + | Blood | + + + + + + + | Performing | Address | City/State/Zipcode | Phone Number | | Organization | | | | + + + + + | [facility] | [address] | [place] [address] | [phone] | + + + + + Basic [...] 7 (L)Comment: GFR <60: | >60 | [facility] | | | GFR | [...] | | | | | | MDRD IDFL traceable | | | | | | equation.Testing | | | | | | performed at [facility], [address] | | | | | | [facility], | | | | | | [place] [address] | | | | + + + + + + + + | Specimen | + + | Blood | + + + + + + + | Performing | Address | City/State/Zipcode | Phone Number | | Organization | | | | + + + + + | [facility] | [address] | [place] [address] | [phone] | + + + + + Basic [...] [place];[address] | | | | | | [address] [facility];[place], [place] | | | | | | [address] | | | | + + + + + + + + | Specimen | + + | Blood | + + + + + + + | Performing | Address | City/State/Zipcode | Phone Number | | Organization | | | | + + + + + | [facility] | [address] [facility] | [place] [address] | [phone] | + + + + + Influenza [...] [place];[address] | | | | | | [facility];[place], [place] | | | | | | [address] | | | | + + + + + + + + | Specimen | + + | | + + + + + + + | Performing | Address | City/State/Zipcode | Phone Number | | Organization | | | | + + + + + | [facility] | [address] | [place] [address] | [phone] | + + + + + FLU SWAB COLLECTION (12/11/2018 3:46 PM PDT) + + + + + + | Component | Value | Ref Range | Performed | Pathologist | | | | | At | Signature | + + + + + + | Collection | SPECIMEN RECEIVED IN | | [facility] | | | | LABComment: Testing | | LABORATORY | | | | performed at [facility];[address] | | | | | | [address];[place] | | | | | | [address] | | | | + + + + + + + + | Specimen | + + | Tissue - Entire | | nasopharynx (body | | structure) | + + + + + + + | Performing | Address | City/State/Zipcode | Phone Number | | Organization | | | | + + + + + | [facility] | [address] | [place] [address] | [phone] | + + + + + POC [...] | | POC | performed at [facility];[address] | | LABORATORY | | | | [address];[place], [place] | | | | | | [address] | | | | + + + + + + + + | Specimen | + + | | + + + + + + + | Performing | Address | City/State/Zipcode | Phone Number | | Organization | | | | + + + + + | [facility] | [address] | [place] [address] | [phone] | + + + + + ECG [...] | | | | | ONLY, -COMPUTER ([id number]), | | | | | | online content editor Daniela Luciano | | | | [...] [facility] | | | | performed at [facility];[address] | | LABORATORY | | | | [address];[place] | | | | | | [address] | | | | + + + + + + + + | Specimen | + + | Blood | + + + + + + + | Performing | Address | City/State/Zipcode | Phone Number | | Organization | | | | + + + + + | [facility] | [address] | [place] [address] | [phone] | + + + + + Basic Metabolic Panel (12/11/2018 6:15 AM PDT) + + + + + + | Component | Value | Ref Range | Performed | Pathologist | | | | | At | Signature | + + + + + + | Na | 136 | 135 - 145 | [facility] | | | | | mmol/L | LABORATORY | | + + + + + + | K | 6.8 ()Comment: RESULT | 3.5 - 4.9 | [facility] | | | | READ BACK BY:ABRIL HUERTA | mmol/L | LABORATORY | | | | M ON [id number] 2 0765 BY | | | | | | [...] [place];[address] | | | | | | [facility];[place], [place] | | | | | | [address] | | | | + + + + + + + + | Specimen | + + | Blood | + + + + + + + | Performing | Address | City/State/Zipcode | Phone Number | | Organization | | | | + + + + + | [facility] | [address] | [place] [address] | [phone] | + + + + + Culture, [...] Special | Testing performed at | | [facility] | | | Requests | [facility];[address] | | LABORATORY | | | | [place] [address] | | | | + + + + + + | RESULT | NO GROWTH 6 DAYS | | [facility] | | | | | | LABORATORY | | + + + + + + | RESULT | Testing performed at | | [facility] | | | | [facility], [address] [facility] | | LABORATORY | | | | [place] | | | | | | [id number]: Testing | | | | | | performed at [facility], [address] | | | | | | [address] [place] | | | | | | [address] | | | | + + + + + + + + | Specimen | + + | Blood - Peripheral | | blood specimen | | (specimen) | + + + + + + + | Performing | Address | City/State/Zipcode | Phone Number | | Organization | | | | + + + + + | [facility] | [address] | [place] [address] | [phone] | + + + + + CT [...] LABORATORY | | | | performed at [facility];[address] | | | | | | [address];[place] | | | | | | [address] | | | | + + + + + + + + | Specimen | + + | | + + + + + + + | Performing | Address | City/State/Zipcode | Phone Number | | Organization | | | | + + + + + | [facility] | [address] | [place] [address] | [phone] | + + + + + Lactic Acid (12/11/2018 1:04 AM PDT) + + + + + + | Component | Value | Ref Range | Performed | Pathologist | | | | | At | Signature | + + + + + + | Lactate, | 1.2Comment: Testing | 0.4 - 2.0 | [facility] | | | Serum | performed at [facility];[address] | mmol/L | LABORATORY | | | | [address];[place] | | | | | | [address] | | | | + + + + + + + + | Specimen | + + | Blood | + + + + + + + | Performing | Address | City/State/Zipcode | Phone Number | | Organization | | | | + + + + + | [facility] | [address] | [place] [address] | [phone] | + + + + + Lactic Acid (12/10/2018 11:44 PM PDT) + + + + + + | Component | Value | Ref Range | Performed | Pathologist | | | | | At | Signature | + + + + + + | Lactate, | 0.8Comment: Testing | 0.4 - 2.0 | [facility] | | | Serum | performed at [facility];[address] | mmol/L | LABORATORY | | | | [address];[place] | | | | | | [address] | | | | + + + + + + + + | Specimen | + + | Blood | + + + + + + + | Performing | Address | City/State/Zipcode | Phone Number | | Organization | | | | + + + + + | [facility] | [address] | [place] [address] | [phone] | + + + + + Culture, [...] | | | BY:Brigitte CARTER 6RDerick @ 9965 | | | | | | 12/11/18 [...] RESULT | Testing performed at | | [facility] | | | | [facility], [address] | | LABORATORY | | | | [place], [place] | | | | | | [address]en[address]z: Testing | | | | | | performed at [facility], [address] | | | | | | [facility] [address] [facility] [address], | | | | | | [place] [address] | | | | + + + + + + + + | Specimen | + + | Blood - Swab of line | | insertion site | | (specimen) | + + + + + + + | Performing | Address | City/State/Zipcode | Phone Number | | Organization | | | | + + + + + | [facility] | [address] | [place] [address] | [phone] | + + + + + XR [...] | | | | | | [facility];[address] [place] [address] | | | | | | [facility];[place] [address] | | | | + + + + + + + + | Specimen | + + | Blood | + + + + + + + | Performing | Address | City/State/Zipcode | Phone Number | | Organization | | | | + + + + + | [facility] | [address] | [place] [address] | [phone] | + + + + + Protime INR (12/10/2018 11:02 PM PDT) + + + + + + | Component | Value | Ref Range | Performed | Pathologist | | | | | At | Signature | + + + + + + | INR | 1.3Comment: REFERENCE | | [facility] | | | | RANGE:0.9 [...] [place];[address] | | | [address];[place] | | | | | | [address] | | | | + + + + + + + + | Specimen | + + | Blood | + + + + + + + | Performing | Address | City/State/Zipcode | Phone Number | | Organization | | | | + + + + + | [facility] | [address] | [place] [address] | [phone] | + + + + + CBC [...] | | | | | at [facility];[address];[place] [address] | | | | | |NORMAL PLT MORPH | | | | | |Testing performed at [facility];[address];[place] [address] | | | | | | | | | | + + + + + + + + | Specimen | + + | Blood | + + + + + + + | Performing | Address | City/State/Zipcode | Phone Number | | Organization | | | | + + + + + | [facility] | [address] | [place] [address] | [phone] | + + + + + Phosphorus (12/10/2018 11:02 PM PDT) + + + + + + | Component | Value | Ref Range | Performed | Pathologist | | | | | At | Signature | + + + + + + | Phosphorus | 8.9 (H)Comment: Testing | 2.3 - 4.8 mg/dL | [facility] | | | | performed at [facility];[address] | | LABORATORY | | | | [address];[place], [place] | | | | | | [address] | | | | + + + + + + + + | Specimen | + + | Blood | + + + + + + + | Performing | Address | City/State/Zipcode | Phone Number | | Organization | | | | + + + + + | [facility] | [address] | [place] [address] | [phone] | + + + + + Magnesium (12/10/2018 11:02 PM PDT) + + + + + + | Component | Value | Ref Range | Performed | Pathologist | | | | | At | Signature | + + + + + + | Magnesium | 2.2Comment: Testing | 1.7 - 2.4 mg/dL | [facility] | | | | performed at [facility];[address] | | LABORATORY | | | | [address];[place], [place] | | | | | | [address] | | | | + + + + + + + + | Specimen | + + | Blood | + + + + + + + | Performing | Address | City/State/Zipcode | Phone Number | | Organization | | | | + + + + + | [facility] | [address] | [place] [address] | [phone] | + + + + + Comprehensive [...] 22 | 10 - 65 U/L | [facility] | | | | | | LABORATORY | | + + + + + + | Estimated | 3 (L)Comment: GFR <60: | >60 | [facility] | | | GFR | [...] at [facility] | | | | | | [facility];[place], [place] | | | | | | [address] | | | | + + + + + + + + | Specimen | + + | Blood | + + + + + + + | Performing | Address | City/State/Zipcode | Phone Number | | Organization | | | | + + + + + | [facility] | [address] | [place] [address] | [phone] | + + + + + ECG [...] | | | | | ONLY, -COMPUTER ([id number]), | | | | | | online content editor Daniela Luciano | | | | [...]
--- OUTSIDE RECORDS SUMMARY | ~2019-03-12 | XMS | Encounter Summary ---
Demographics + + + | Address | [address] | | | [place] [address] | + + + | Home Phone [...] | | | | | [place] [address] | | + + + + + | Thania Mallory | ECON | [address] | | | | | [place] [address] | | + + + + + | Deidra Weldon | ECON | [address] | | | | | [place] | | | | | [address] | | + + + + + Care Team Providers + +------+ + | Care Electric Trucker Name | Role | Phone | [...] | | | | at [facility] | [facility] | | | | | [address] | [place] [address] | | | | | Loop Mailcode: | | | | | | OP[address] [facility] | | | | | | [facility] | | | | | | [place], [place] | | | | | | [address] | | | | | | [phone] | | | +--------+ + + + [...] | | | | | | [place], [place] | | | | | | [address] | | | | | | [phone] | | | | | | | [...] | e | 11:49 AM | MEDICARE 6903 | procedure are in the | | [...] view image for the detailed interpretation from [facility] results. | CARDIOLOGY | + + + + + | Procedure Note | + + | Interface, Cardiology Results - 12/21/2012 9:38 AM PDT Please click on view image | | for the detailed interpretation from [facility] results. 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
--- OUTSIDE RECORDS SUMMARY | ~2019-03-12 | XMS | Encounter Summary ---
Demographics + + + | Address | [address] | | | [place] [address] | + + + | Home Phone [...] | Author | [facility] | | | and Josephana | + + + | Organization | [facility] [...] Providers + +------+ + | Care Change Director Name | Role | Phone | [...] NEPHROLOGY [address] | M, DO [address] | | | | | [address] | [place] | | | | | [place], [place] | [place], [place] | | | | | [address] | [address] | | | | | [phone] | | | +--------+ + + + [...] | | | | | | [place] [address] | | | | | | [phone] | | | | | | | | +--------+---------+ + + + documented as of this encounter Visit Diagnoses Not on filedocumented in this encounter"
--- OUTSIDE RECORDS SUMMARY | ~2019-03-12 | XMS | Encounter Summary ---
Demographics + + + | Address | [address] | | | [place] [address] | + + + | Home Phone [...] | | | | | [place] [address] | | + + + + + | Thania Mallory | ECON | [address] | | | | | [place] [address] | | + + + + + | Deidra Weldon | ECON | [address] | | | | | [place] | | | | | [address] | | + + + + + Care Team Providers + +------+ + | Care Analytical Lab Analyst Name | Role | Phone | [...] Hospital | | | | | | [facility] | | | | | | [place], [place] | | | | | | [address] | | | +--------+ + + + [...] Denise | | | | | | [place], [place] | | | | | | [address] | | | | | | [phone] | | | | | | | | +--------+ + + + + documented as of this encounter Visit Diagnoses Not on filedocumented in this encounter"
--- OUTSIDE RECORDS SUMMARY | ~2019-03-12 | XMS | Encounter Summary ---
Demographics + + + | Address | [address] | | | [place] [address] | + + + | Home Phone [...] | | | | | [place] [address] | | + + + + + | Thania Mallory | ECON | [address] | | | | | [place] [address] | | + + + + + | Deidra Weldon | ECON | [address] | | | | | [place] | | | | | [address] | | + + + + + Care Team Providers + +------+ + | Care Sport Intern Name | Role | Phone | [...] Shun | | | | | at [facility] | [facility] | | | | | [address] | [place] [address] | | | | | Loop Mailcode: | | | | | | [address] [facility] | | | | | | [facility] | | | | | | [place], [place] | | | | | | [address] | | | | | | [phone] | | | +--------+ + + + [...] Denise | | | | | | [place], [place] | | | | | | [address] | | | | | | [phone] | | | | | | | [...] | e | 11:49 AM | MEDICARE 4966 | procedure are in the | | [...] view image for the detailed interpretation from [facility] results. | CARDIOLOGY | + + + + + | Procedure Note | + + | Interface, Cardiology Results - 12/21/2012 9:38 AM PDT Please click on view image | | for the detailed interpretation from [facility] results. | + + + + + + + | Performing | Address | City/State/Zipcode | Phone Number | | Organization | | | | + + + + + | [facility] | [address] | [place], [place] | | | CARDIOLOGY | [address] | [address] | | + + + + + documented in this encounter Visit Diagnoses + + | Diagnosis | + + | Allergic purpura- MEDICARE 2214 Allergic purpura | + + documented in this encounter
--- OUTSIDE RECORDS SUMMARY | ~2019-03-12 | XMS | Encounter Summary ---
Demographics + + + | Address | [address] | | | [place] [address] | + + + | Home Phone [...] | | | | | [place] [address] | | + + + + + | Thania Mallory | ECON | [address] | | | | | [place] [address] | | + + + + + | Deidra Weldon | ECON | [address] | | | | | [place] | | | | | [address] | | + + + + + Care Team Providers + +------+ + | Care Appeals Specialist Name | Role | Phone | [...] | | [address] | [facility] | | | | | [address] [place], | [place], [place] | | | | | [place] [address] | [address] | | | | | [phone] | | | +--------+ + + + [...] Denise | | | | | | [place], [place] | | | | | | [address] | | | | | | [phone] | | | | | | | | +--------+ + + + + documented as of this encounter Visit Diagnoses Not on filedocumented in this encounter"
--- OUTSIDE RECORDS SUMMARY | ~2019-03-12 | XMS | Encounter Summary ---
Demographics + + + | Address | [address] | | | [place] [address] | + + + | Home Phone [...] Author | [facility] | | | and [place]ana | + + + | Organization | [facility] [...] Team Providers + +------+ + | Care [employer] Name | Role | Phone | + [...] | NEPHROLOGY [address] | [address] | | | | | [address] | [address] [place] | | | | | [place], [place] | [place] [address] | | | | | [address] | [phone] | | | | | [phone] | | | +--------+--------+ + + + [...] | | | | | [place] [address] | | | | | | [phone] | | | | | | | | +--------+---------+ + + + documented as of this encounter Visit Diagnoses Not on filedocumented in this encounter"
--- OUTSIDE RECORDS SUMMARY | ~2019-03-12 | XMS | Encounter Summary ---
Demographics + + + | Address | [address] | | | [place] [address] | + + + | Home Phone [...] | Author | [facility] | | | and Josephana | + + + | Organization | [facility] | [...] Team Providers + +------+ + | Care Rural Carrier Associate Name | Role | Phone | [...] + + | 12/10/ | Hospital | [facility] | Rayray Powers MD | Sepsis, due to | | 2019 - | Encounter | [facility] | [address] | unspecified | | | | CARE FLOOR [address] | [place], [place] | organism, | | 12/14/ | | [address] | [address] | unspecified whether | | 2019 | | [place], [place] | [phone] | acute organ | | | | [address] | | dysfunction present | | | | [phone] | Lee Harris MD | ([facility]) (Primary Dx); | | | | | [address] | Pneumonia of right | | | | | [place] [address] | lower lobe due to | | | | | [phone] | infectious organism | | | | | | ([facility]); Hypoxia; | | | | | Jw Neri, DO [address] | Hypervolemia, | | | | | [address] | unspecified | | | | | [place] [address] | hypervolemia type; | | | | | [phone] | ESRD on dialysis | | | | | | ([facility]); Hyperkalemia; | | | | | | Acute on chronic | | | | | | respiratory failure | | | | | | with hypoxia and | | | | | | hypercapnia ([facility]); | | | | | | Acute respiratory | | | | | | failure with hypoxia | | | | | | ([facility]); Anemia in | | | | | | ESRD (end-stage | | | | | | renal disease) | | | | | | ([facility]); At high risk | | | | | | for electrolyte | | | | | | imbalance; Awaiting | | | | | | organ transplant | | | | | | status; 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 | | | | | | failure ([facility]); | | | | | | Chronic right-sided | | | | | | heart failure ([facility]); | | | | | | 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 | | | | | | ([facility]); ESRD on | | | | | | hemodialysis ([facility]); [...] | | | | | | function ([facility]); | | | [...] | | | | | | dialysis ([facility]); | | | [...] to Gram-positive bacteria 12/12/2018 Clotted dialysis access ([facility]) 2014 Congestive heart failure ([facility]) ESRD (end stage renal disease) ([facility]) HSP (Henoch-Schonlein purpura) nephritis ([facility]) 1987 Hypertension Pericardial effusion without cardiac tamponade 11/07/2018 Past Surgical History: Procedure Laterality Date ABDOMEN SURGERY AV FISTULA REPAIR 02/24/2014 LEFT Radical Cephalic Fistula Creation; Laterality: Left; Surgeon: Blake Chavarria MD ; Location: [facility] MAIN OR AV FISTULA REPAIR Left 03/07/2014 Procedure: AV FISTULA - GRAFT REPAIR/REVISION; Surgeon: Rik Simon MD; Location: [facility] OR; Service: Vascular; Laterality: Left; biopsy of kidney age 10 DIALYSIS FISTULA CREATION 04/08/2014 Procedure: DIALYSIS CATHETER - INSERTION; Surgeon: Rik Simon MD; Location: [facility] OR ; Service: Vascular; Laterality: N/A; tunneled catheter.br hemodialysis catheter KIDNEY BIOPSY Left 2003 OTHER SURGICAL HISTORY LAPAROSCOPIC PERITONEAL DIALYSIS CATHETER INSERTION - x2 OTHER SURGICAL HISTORY Right 07/2013 LAPAROSCOPIC PERITONEAL DIALYSIS CATHETER INSERTION - current dialysis access MWF dialysis OTHER SURGICAL HISTORY Left 06/24/2014 SUPERFICIALIZATION OF AV FISTULA - Procedure: AV FISTULA - SUPERFICIALIZATION; Surgeon: Emanuel Simon MD; Location: [facility] MAIN OR; Service: Vascular; Laterality: Left; OTHER SURGICAL HISTORY Left 04/08/2014 AV FISTULA PLACEMENT - Procedure: AV FISTULA; Surgeon: Rik Simon MD; Location: [facility] OR; Service: Vascular; Laterality: Left; [...] hours. No results for input(s): PHART, PO2ART, EUI3OZH, G3XKQDPG, BEART in the last 168 hours. No results for input(s): APTT, INR, PTT in the last 168 hours. No results for input(s): TSH in the last 168 hours. Invalid input(s): T3FREE, FREET4 No results for input(s): TROPONINT in the last 168 hours. Invalid input(s): CKTOTAL, TROPONINI, CKMBINDEX Disposition: home No discharge procedures on file. Follow up: Jonathan Alonso MD [address] [facility] [address] Schedule an appointment as soon as possible for a visit hospital follow up Jorje Stewart, [address] [facility] [address] [facility] [address] Schedule an appointment as soon as possible [...] be sent through Care Everywhere.Leti Whitt (Adult) (Sinhala)documented in this encounter Medications at Time of [...] Procedure Component Value Units Date/Time Culture, Blood [[id number]] Collected: 12/12/18 1943 Order Status: Canceled Lab Status: No result Specimen: Peripheral Blood Culture, Body Fluid Sterile [[id number]] Order Status: No result Lab Status: No result Specimen: Body Fluid from Pleural Fluid, Right Culture, Blood [[id number]] Collected: 12/12/18 0502 Order Status: Completed Lab Status: Preliminary result Updated: 12/13/18 1324 Specimen: Peripheral Blood Special Requests RWRIST Special Requests Testing performed at [facility];[address] [place] [address] RESULT NO GROWTH AT THIS TIME RESULT Testing performed at [facility], [address] [place] [address] Comment: Testing performed at [facility], [address] [place] [address] Influenza A and B RNA, NAAT [[id number]] Collected: 12/11/18 1556 Order Status: Completed Lab Status: Final result Updated: 12/11/18 1619 Influenza A NEGATIVE Influenza B NEGATIVE Comment: Testing performed by Molecular Methodology Testing performed at [facility];[address] [place] [address] Flu Swab Collection [[id number]] Collected: 12/11/18 1546 Order Status: Completed Lab Status: Final result Updated: 12/11/18 1549 Specimen: Tissue from Nasopharynx Collection SPECIMEN RECEIVED IN LAB Comment: Testing performed at [facility];[address] [place] [address] Culture, Blood [[id number]] Collected: 12/11/18 0615 Order Status: Completed Lab Status: Preliminary result Updated: 12/12/18 1134 Specimen: Peripheral Blood Special Requests RAC Special Requests Testing performed at [facility];[address] [place] [address] RESULT NO GROWTH AT THIS TIME RESULT Testing performed at [facility], [address] [place] [address] Comment: Testing performed at [facility], [address] [place] [address] Culture, Blood [[id number]] (Abnormal) Collected: 12/10/18 2343 Order Status: Completed Lab Status: Final result Updated: 12/13/18 1009 Specimen: Blood from Line Gram Stain Result -- GRAM POSITIVE COCCI IN CLUSTERS SEEN IN AEROBIC BOTTLE SEEN IN ANAEROBIC BOTTLE Gram Stain Result -- SMEAR RESULTS CALLED TO AND READ BACK BY: Brigitte CARTER @ 1798 12/11/18 CDS RESULT STAPHYLOCOCCUS SPECIES, COAGULASE NEGATIVE RESULT GROWTH IN TWO OF TWO BOTTLES RESULT -- TIME TO DETECTION: 0.69 DAYS RESULT POSSIBLE CONTAMINANT, CLINICAL CORRELATION REQUIRED. RESULT Testing performed at [facility], [address] [place] [address] Comment: Testing performed at [facility], [address] [place] [address] Microbiology Results (72 hrs) Procedure Component Value Units Date/Time Culture, Blood [[id number]] Collected: 12/12/18 0502 Order Status: Completed Lab Status: Preliminary result Updated: 12/13/18 1324 Specimen: Peripheral Blood Special Requests RWRIST Special Requests Testing performed at [facility];[address] [place] [address] RESULT NO GROWTH AT THIS TIME RESULT Testing performed at [facility], [address] [place] [address] Comment: Testing performed at [facility], [address] [place] [address] Influenza A and B RNA, NAAT [[id number]] Collected: 12/11/18 1556 Order Status: Completed Lab Status: Final result Updated: 12/11/18 1619 Influenza A NEGATIVE Influenza B NEGATIVE Comment: Testing performed by Molecular Methodology Testing performed at [facility];[address] [place] [address] Flu Swab Collection [[id number]] Collected: 12/11/18 1546 Order Status: Completed Lab Status: Final result Updated: 12/11/18 1549 Specimen: Tissue from Nasopharynx Collection SPECIMEN RECEIVED IN LAB Comment: Testing performed at [facility];[address] [place] [address];[place] [address] IMAGING: No new images for review today. [...] was completed later after rounds. Dictation software, SpectraFluidics, was used which may contain error for [...] right lung base, likely representing atelectasis. Left orse ng is clear. Blunting of the right [...] PASP is 73 mmHg - Baseline weight fp523ghr. In acute exacerbation - HD per nephrology [...] this note might be different from the [facility]: Infectious Diseases Progress Note Hospital [...] Consult Continuous Infusions: heparin 400 Units/hr (12/12/18 8486) PRN Meds:.acetaminophen, albumin, albuterol-ipratropium, nitroglycerin, ondansetron, oxyCOD [...] Procedure Component Value Units Date/Time Culture, Blood [[id number]] Collected: 12/12/18 194 Order Status: Canceled Lab Status: No result Specimen: Peripheral Blood Culture, Body Fluid Sterile [[id number]] Order Status: No result Lab Status: No result Specimen: Body Fluid from Pleural Fluid, Right Culture, Blood [[id number]] Collected: 12/12/18 0502 Order Status: Sent Lab Status: In process Updated: 12/12/18 1005 Specimen: Peripheral Blood Influenza A and B RNA, NAAT [[id number]] Collected: 12/11/18 1556 Order Status: Completed Lab Status: Final result Updated: 12/11/18 1619 Influenza A NEGATIVE Influenza B NEGATIVE Comment: Testing performed by Molecular Methodology Testing performed at [facility];[address] [place] [address] Flu Swab Collection [[id number]] Collected: 12/11/18 1546 Order Status: Completed Lab Status: Final result Updated: 12/11/18 1549 Specimen: Tissue from Nasopharynx Collection SPECIMEN RECEIVED IN LAB Comment: Testing performed at [facility];[address] [place] [address] Culture, Blood [[id number]] Collected: 12/11/18 0615 Order Status: Completed Lab Status: Preliminary result Updated: 12/12/18 1134 Specimen: Peripheral Blood Special Requests RAC Special Requests Testing performed at [facility];[address] [place] [address] RESULT NO GROWTH AT THIS TIME RESULT Testing performed at [facility], [address] [place] [address] Comment: Testing performed at [facility], [address] [place] [address] Culture, Blood [[id number]] (Abnormal) Collected: 12/10/18 2343 Order Status: Completed Lab Status: Final result Updated: 12/13/18 1009 Specimen: Blood from Line Gram Stain Result -- GRAM POSITIVE COCCI IN CLUSTERS SEEN IN AEROBIC BOTTLE SEEN IN ANAEROBIC BOTTLE Gram Stain Result -- SMEAR RESULTS CALLED TO AND READ BACK BY: Brigitte CARTER 6RDerick @ 9830 12/11/18 CDS RESULT STAPHYLOCOCCUS SPECIES, COAGULASE NEGATIVE RESULT GROWTH IN TWO OF TWO BOTTLES RESULT -- TIME TO DETECTION: 0.69 DAYS RESULT POSSIBLE CONTAMINANT, CLINICAL CORRELATION REQUIRED. RESULT Testing performed at [facility], [address] [place] [address] Comment: Testing performed at [address] [address] Microbiology Results (72 hrs) Procedure Component Value Units Date/Time Culture, Blood [[id number]] Collected: 12/12/18 0502 Order Status: Sent Lab Status: In process Updated: 12/12/18 1005 Specimen: Peripheral Blood Influenza A and B RNA, NAAT [[id number]] Collected: 12/11/18 1556 Order Status: Completed Lab Status: Final result Updated: 12/11/18 1619 Influenza A NEGATIVE Influenza B NEGATIVE Comment: Testing performed by Molecular Methodology Testing performed at [facility];[address] [place] [address] Flu Swab Collection [[id number]] Collected: 12/11/18 1546 Order Status: Completed Lab Status: Final result Updated: 12/11/18 1549 Specimen: Tissue from Nasopharynx Collection SPECIMEN RECEIVED IN LAB Comment: Testing performed at [facility];[address] [place] [address] Culture, Blood [[id number]] Collected: 12/11/18 0615 Order Status: Completed Lab Status: Preliminary result Updated: 12/12/18 1134 Specimen: Peripheral Blood Special Requests RAC Special Requests Testing performed at [facility];[address] [place] [address] RESULT NO GROWTH AT THIS TIME RESULT Testing performed at [facility], [address] [place] [address] Comment: Testing performed at [facility], [address] [place] [address] Culture, Blood [[id number]] (Abnormal) Collected: 12/10/18 2343 Order Status: Completed Lab Status: Final result Updated: 12/13/18 1009 Specimen: Blood from Line Gram Stain Result -- GRAM POSITIVE COCCI IN CLUSTERS SEEN IN AEROBIC BOTTLE SEEN IN ANAEROBIC BOTTLE Gram Stain Result -- SMEAR RESULTS CALLED TO AND READ BACK BY: Brigitte CARTER @ 8946 12/11/18 CDS RESULT STAPHYLOCOCCUS SPECIES, COAGULASE NEGATIVE RESULT GROWTH IN TWO OF TWO BOTTLES RESULT -- TIME TO DETECTION: 0.69 DAYS RESULT POSSIBLE CONTAMINANT, CLINICAL CORRELATION REQUIRED. RESULT Testing performed at [facility], [address] [place] [address] Comment: Testing performed at [facility], [address] [place] [address] IMAGING: No new images for review today. [...] was completed later after rounds. Dictation software, SpectraFluidics, was used which may contain error for [...] E | | | | | | [place] [address] | | | | | | [phone] | | | | | | | [...] R?MRN: | | | | | | [id number] | | | [id number] | | | riteri | | | [...] | | St. | | | [place] | | | y | | | [...] | | St. | | | [place] | | | y | | | [...] | | St. | | | [place] | | | y | | | [...] | | St | | | [place] | | | y | | | [...] | | | | | | [place] | | | y | | | [...] | | St. | | | [place] | | | y | | | [...] | | St. | | | [place] | | | y H. | | [...] | | St. | | | [place] | | | y H. | | [...] | | St. | | | [place] | | | y H. | | [...] | | St. | | | [place] | | | y H. | | [...] | | St. | | | [place] | | | y H. | | [...] | | St. | | | [place] | | | y H. | | [...] | | St. | | | [place] | | | y H. | | [...] | | | MD | | | Bankruptcy Law Specialist | | | al | | [...] | | | [phone] | | | [id number] | | | 2b | | | [...] + | Billie Gupta MD 12/14/2018 9:54 [facility] | | | [facility] Procedure note Pt is seen [...] QB 450 AP | | | -200 Assistant Professor Of Art 170 Constitutional: pt appears without distress. on [...] | | | | | | at [facility], [address] | | | | | | [facility], | | | | | | [place] [address] | | | | | |Testing performed at [facility], [address] [place] [address] | | | | | | | [...] HOSPITAL LABORATORY | [address] | [place] [address] | [phone] | + + + + + Basic [...] 7 (L)Comment: GFR <60: | >60 | [facility] [...] | | | | | | [facility] traceable | | | | | | equation.Testing | | | | | | performed at [facility], [address] | | | | | | [facility], | | | | | | [place] [address] | | | | + + + + + + + + | Specimen | + + | Blood | + + + + + + + | Performing | Address | City/State/Zipcode | Phone Number | | Organization | | | | + + + + + | [facility] | [address] | [place] [address] | [phone] | + + + + + XR [...] W | | | | | | [facility], | | | | | | [place] [address] | | | | + + + + + + + + | Specimen | + + | Blood | + + + + + + + | Performing | Address | City/State/Zipcode | Phone Number | | Organization | | | | + + + + + | [facility] | [address] | [place] [address] | [phone] | + + + + + [place] [...] [facility] | | | | performed at [facility], [address] | | LABORATORY | | | | [address] | | | | | | [place] [address] | | | | + + + + + + + + | Specimen | + + | Blood | + + + + + + + | Performing | Address | City/State/Zipcode | Phone Number | | Organization | | | | + + + + + | [facility] | [address] | [place] [address] | [phone] | + + + + + Culture, [...] Special | Testing performed at | | [facility] | | | Requests | C;[address] | | LABORATORY | | | | [place] [address] | | | | + + + + + + | RESULT | NO GROWTH 6 DAYS | | [facility] | | | | | | LABORATORY | | + + + + + + | RESULT | Testing performed at | | [facility] | | | | TCL, [address] [facility] | | LABORATORY | | | | [place] | | | | | | [id number]: Testing | | | | | | performed at [facility], [address] | | | | | | [place] | | | | | | [address] | | | | + + + [...] [facility] | [address] | [place] [address] | [phone] | + + + + + CBC [...] [facility] | | | | performed at [facility], [address] | | LABORATORY | | | | [address], | | | | | | [place] [address] | | | | + + + + + + + + | Specimen | + + | Blood | + + + + + + + | Performing | Address | City/State/Zipcode | Phone Number | | Organization | | | | + + + + + | [facility] | [address] | [place] [address] | [phone] | + + + + + Basic [...] 7 (L)Comment: GFR <60: | >60 | [facility] [...] W | | | | | | [facility], | | | | | | [place] [address] | | | | + + + + + + + + | Specimen | + + | Blood | + + + + + + + | Performing | Address | City/State/Zipcode | Phone Number | | Organization | | | | + + + + + | [facility] | [address] | [place] [address] | [phone] | + + + + + Basic [...] | | | | | performed at [facility];[address] | | | | | | [address] [facility];[place], [place] | | | | | | [address] | | | | + + + + + + + + | Specimen | + + | Blood | + + + + + + + | Performing | Address | City/State/Zipcode | Phone Number | | Organization | | | | + + + + + | [facility] | [address] [facility] | [place] [address] | [phone] | + + + + + Influenza [...] | | | | | performed at [facility];[address] | | | | | | [facility];[place], [place] | | | | | | [address] | | | | + + + + + + + + | Specimen | + + | | + + + + + + + | Performing | Address | City/State/Zipcode | Phone Number | | Organization | | | | + + + + + | [facility] | [address] | [place] [address] | [phone] | + + + + + FLU [...] LABORATORY | | | | performed at [facility];[address] | | | | | | [address];[place] | | | | | | [address] | | | | + + + [...] | [address] | [place] [address] | [phone] | + + + + + POC Glucose (12/11/2018 8:31 AM PDT) + + + + + + | Component | Value | Ref Range | Performed | Pathologist | | | | | At | Signature | + + + + + + | Glucose, | 84Comment: Testing | 65 - 99 mg/dL | [facility] | | | POC | performed at [facility];[address] | | LABORATORY | | | | [address];[place], [place] | | | | | | [address] | | | | + + + + + + + + | Specimen | + + | | + + + + + + + | Performing | Address | City/State/Zipcode | Phone Number | | Organization | | | | + + + + + | [facility] | [address] | [place] [address] | [phone] | + + + + + ECG [...] | | | | | ONLY, -COMPUTER ([id number]), | | | | | | rewrite editor Daniela Luciano | | | | [...] [facility] | | | | performed at [facility];[address] | | LABORATORY | | | | [address];[place] | | | | | | [address] | | | | + + + + + + + + | Specimen | + + | Blood | + + + + + + + | Performing | Address | City/State/Zipcode | Phone Number | | Organization | | | | + + + + + | [facility] | [address] | [place] [address] | [phone] | + + + + + Basic Metabolic Panel (12/11/2018 6:15 AM PDT) + + + + + + | Component | Value | Ref Range | Performed | Pathologist | | | | | At | Signature | + + + + + + | Na | 136 | 135 - 145 | [facility] | | | | | mmol/L | LABORATORY | | + + + + + + | K | 6.8 ()Comment: RESULT | 3.5 - 4.9 | [facility] | | | | READ BACK BY:ABRIL HUERTA | mmol/L | LABORATORY | | | | [place] ON [id number] 2 0722 BY | | | | | | [...] | | | | | performed at [facility];[address] | | | | | | [facility];[place], [place] | | | | | | [address] | | | | + + + + + + + + | Specimen | + + | Blood | + + + + + + + | Performing | Address | City/State/Zipcode | Phone Number | | Organization | | | | + + + + + | [facility] | [address] | [place] [address] | [phone] | + + + + + Culture, [...] Special | Testing performed at | | [facility] | | | Requests | [facility];[address] | | LABORATORY | | | | [place] [address] | | | | + + + + + + | RESULT | NO GROWTH 6 DAYS | | [facility] | | | | | | LABORATORY | | + + + + + + | RESULT | Testing performed at | | [facility] | | | | T[facility], [address] [facility] | | LABORATORY | | | | [place] | | | | | | [address]Ieifswx: Testing | | | | | | performed at [facility], [address] | | | | | | [place] | | | | | | [address] | | | | + + + [...] HOSPITAL LABORATORY | [address] | [place] [address] | [phone] | + + + + + CT [...] | | | | Signed by: Eliza lGass, Mere | | Sign Date/Time: 12/11/2018 2:45 [...] LABORATORY | | | | performed at [facility];[address] | | [address];[place] | | | | | | [address] | | | | + + + + + + + + | Specimen | + + | | + + + + + + + | Performing | Address | City/State/Zipcode | Phone Number | | Organization | | | | + + + + + | [facility] | [address] | [place] [address] | [phone] | + + + + + Lactic Acid (12/11/2018 1:04 AM PDT) + + + + + + | Component | Value | Ref Range | Performed | Pathologist | | | | | At | Signature | + + + + + + | Lactate, | 1.2Comment: Testing | 0.4 - 2.0 | [facility] | | | Serum | performed at [facility];[address] | mmol/L | LABORATORY | | | | [address];[place] | | | | | | [address] | | | | + + + + + + + + | Specimen | + + | Blood | + + + + + + + | Performing | Address | City/State/Zipcode | Phone Number | | Organization | | | | + + + + + | [facility] | [address] | [place] [address] | [phone] | + + + + + Lactic Acid (12/10/2018 11:44 PM PDT) + + + + + + | Component | Value | Ref Range | Performed | Pathologist | | | | | At | Signature | + + + + + + | Lactate, | 0.8Comment: Testing | 0.4 - 2.0 | [facility] | | | Serum | performed at [facility];[address] | mmol/L | LABORATORY | | | | [address];[place] | | | | | | [address] | | | | + + + + + + + + | Specimen | + + | Blood | + + + + + + + | Performing | Address | City/State/Zipcode | Phone Number | | Organization | | | | + + + + + | [facility] | [address] | [place] [address] | [phone] | + + + + + Culture, [...] | LABORATORY | | | | BY:Brigitte ACRTER 6RDerick @ 8535 | | | | | | 12/11/18 [...] [facility] | | | | [facility], [address] | | LABORATORY | | | | [place], [place] | | | | | | [id number]: Testing | | | | | | performed at [facility], [address] | | | | | [address], | | | | | | [place] [address] | | | | + + + [...] HOSPITAL LABORATORY | [address] | [place] [address] | [phone] | + + + + + XR [...] at | | | | | | [facility];[address] [place] [address] | | | | | | [facility];[place] [address] | | | | + + + + + + + + | Specimen | + + | Blood | + + + + + + + | Performing | Address | City/State/Zipcode | Phone Number | | Organization | | | | + + + + + | [facility] | [address] | [place] [address] | [phone] | + + + + + Protime [...] | | | | | performed at [facility];[address];[place] | | | | | | [address] | | | | + + + + + + + + | Specimen | + + | Blood | + + + + + + + | Performing | Address | City/State/Zipcode | Phone Number | | Organization | | | | + + + + + | [facility] | [address] | [place] [address] | [phone] | + + + + + CBC [...] | | | | | | at [facility];[address] | | | | [address];[place] [address] | | | | | |NORMAL PLT MORPH | | | | | |Testing performed at [facility];[address];[place] [address] | | | | | | | [...] HOSPITAL LABORATORY | [address] | [place] [address] | [phone] | + + + + + Phosphorus (12/10/2018 11:02 PM PDT) + + + + + + | Component | Value | Ref Range | Performed | Pathologist | | | | | At | Signature | + + + + + + | Phosphorus | 8.9 (H)Comment: Testing | 2.3 - 4.8 mg/dL | [facility] | | | | performed at [facility];[address] | | LABORATORY | | | | [address];[place], [place] | | | | | | [address] | | | | + + + + + + + + | Specimen | + + | Blood | + + + + + + + | Performing | Address | City/State/Zipcode | Phone Number | | Organization | | | | + + + + + | [facility] | [address] | [place] [address] | [phone] | + + + + + Magnesium [...] HOSPITAL | | | | performed at [facility];[address] | | LABORATORY | | | | [address];[place], [place] | | | | | | [address] | | | | + + + + + + + + | Specimen | + + | Blood | + + + + + + + | Performing | Address | City/State/Zipcode | Phone Number | | Organization | | | | + + + + + | [facility] | [address] | [place] [address] | [phone] | + + + + + Comprehensive [...] 22 | 10 - 65 U/L | [facility] | | | | | | LABORATORY | | + + + + + + | Estimated | 3 (L)Comment: GFR <60: | >60 | [facility] [...] | | | | | performed at [facility] | | | | | | [facility];[place], [place] | | | | | | [address] | | | | + + + + + + + + | Specimen | + + | Blood | + + + + + + + | Performing | Address | City/State/Zipcode | Phone Number | | Organization | | | | + + + + + | [facility] | [address] | [place] [address] | [phone] | + + + + + ECG [...] | | | | | ONLY, -COMPUTER ([id number]), | | | | | | rewrite editor Daniela Luciano | | | | [...]
--- OUTSIDE RECORDS SUMMARY | ~2019-03-12 | XMS | Encounter Summary ---
Demographics + + + | Address | [address] | | | [place] [address] | + + + | Home Phone [...] + | Author | [facility] | | | and [place] | + + + | Organization | [facility] | | | and [place] [...] Providers + +------+ + | Care Miller Distillery Name | Role | Phone | [...] [place] | | | | | | [address] | | | | | | [phone] | | | +--------+ + + + [...] | | | | | [place] [address] | | | | | | [phone] | | | | | | | | +--------+---------+ + + + documented as of this encounter Visit Diagnoses Not on filedocumented in this encounter"
--- OUTSIDE RECORDS SUMMARY | ~2019-03-12 | XMS | Encounter Summary ---
Demographics + + + | Address | [address] | | | [place] [address] | + + + | Home Phone [...] | [facility] | | | and [place] | + + + | Organization | [facility] | | | [...] Team Providers + +------+ + | Care Jitney Driver Name | Role | Phone | [...] | | | | [address]) End | [place], [place] | [place], [place] | | | | | stage renal | [address] | [address] Phone: | | | | | disease | Phone: | [phone] | | | | | ([facility]) | [phone] | Fax: | | | | | Infection | Fax: | [phone] | | | | | and | [phone] | | | | | | inflammatory [...] | | [address] | [place], [address] | (Primary Dx); | | | | [place], [place] | [place], [place] | Anemia in ESRD | | | | [address] | [address] | (end-stage renal | | | | [phone] | | disease) ([facility]) | +--------+ + + + + Social [...] CC: Jamil Joy MD, [facility] Transplant [facility], [facility] Blake Chavarria MD, FACS documented in [...] [place] | | | | | | [place] [address] | | | | | | [phone] | | | | | | | [...]
--- OUTSIDE RECORDS SUMMARY | ~2019-03-12 | XMS | Encounter Summary ---
Demographics + + + | Address | [address] | | | [place] [address] | + + + | Home Phone [...] + | Author | [facility] | | | and [place] | + + + | Organization | [facility] | [...] Providers + +------+ + | Care Die Presser Name | Role | Phone | + [...] | | | | [place], [place] | [phone] | | | | | [address] | | | | | | [phone] | | | +--------+ + + + [...] | | | | | [place] [address] | | | | | | [phone] | | | | | | | [...]
--- OUTSIDE RECORDS SUMMARY | ~2019-03-12 | XMS | Encounter Summary ---
Demographics + + + | Address | [address] | | | [place] [address] | + + + | Home Phone [...] Author | [facility] | | | and [place] | + + + | Organization | [facility] [...] + + | 02/12/ | Hospital | [facility] | Nereida Roberson | | | 2008 | Encounter | HOSPITAL EMERGENCY | MD Eufemia [address] | | | | | [place] [address] [place] | [address] | | | [address] [place], [place] | [place] [address] | | | | | [address] | [phone] | | | | | [phone] | | | +--------+ + + + [...] [place] | | | | | | [place] [address] | | | | | | [phone] | | | | | | | | +--------+---------+ + + + documented as of this encounter Visit Diagnoses Not on filedocumented in this encounter"
--- OUTSIDE RECORDS SUMMARY | ~2019-03-12 | XMS | Encounter Summary ---
Demographics + + + | Address | [address] | | | [place] [address] | + + + | Home Phone [...] | [facility] | | | and [place] | + + + | Organization | [facility] | [...] Team Providers + +------+ + | Care Labor Delivery Rn Name | Role | Phone | [...] NEPHROLOGY [address] | MD [address] | | | | | [address] | [address] [place] | | | | | [place], [place] | [place] [address] | | | | | [address] | [phone] | | | | | [phone] | | | +--------+ + + + [...] [place] | | | | | | [place] [address] | | | | | | [phone] | | | | | | | | +--------+---------+ + + + documented as of this encounter Visit Diagnoses Not on filedocumented in this encounter"
--- OUTSIDE RECORDS SUMMARY | ~2019-03-12 | XMS | Encounter Summary ---
Demographics + + + | Address | [address] | | | [place] [address] | + + + | Home Phone [...] | | | | | [place] [address] | | + + + + + | Thania Mallory | ECON | [address] | | | | | [place] [address] | | + + + + + | Deidra Weldon | ECON | [address] | | | | | [place] | | | | | [address] | | + + + + + Care Team Providers + +------+ + | Care Hospice Plan Administrator Name | Role | Phone | [...] | | | | | Hospital | [facility] | | | | | | [address] | [place] | | | | | | [address] | [place], [place] | | | | | | [place] | [address] | | | | | | [place] | Phone: | | | | | | [address] | [phone] | | | | | | Phone: | | | | | | | [phone] | | | | | | | Fax: | | | | | | | [phone] | | +--------+--------+ + + + + Encounter Details +--------+---------+ + + + | Date | Type | Department | Care Team | Description | +--------+---------+ + + + | 08/17/ | Office | Specialty Clinics | Sudhakar Joy | Anemia of chronic | | 2016 | Visit | at [facility] [address] | DMD [address] | kidney failure, | | | | [place] Mailcode: | [address] | stage 5 (HCC) | | | | [facility] [place] | [place], [place] | (Primary Dx); HSP | | | | [place], [place] | [address] | (Jada[place]manueln | | | | [address] | [phone] | purpura) nephritis | | | | [phone] | | | +--------+---------+ + + + [...] good. She has moved into a new [facility]. She has collected enough money to [...] [address] Mail code [facility] [place], [place] [address] documented in this encounter Plan of Treatment +--------+ + + + + | Date | Type | Specialty | Care Team | Description | +--------+ + + + + | 05/04/ | Hospital | Adult Acute Care | El Starr MD | | | 2022 | Encounter | | [address] | | | | | | [place], [place] | | | | | | [address] | | | | | | [phone] | | | | | | | [...]
--- OUTSIDE RECORDS SUMMARY | ~2019-03-12 | XMS | Encounter Summary ---
Demographics + + + | Address | [address] | | | [place] [address] | + + + | Home Phone [...] | | | | | [place] [address] | | + + + + + | Thania Mallory | ECON | [address] | | | | | [place] [address] | | + + + + + | Deidra Weldon | ECON | [address] | | | | | [place] | | | | | [address] | | + + + + + Care Team Providers + +------+ + | Care Cryptographic Technician Name | Role | Phone | [...] | | | | [address] [place] | [facility] | | | | | [facility], | [place], [place] | | | | | [place] [address] | [address] | | | | | [phone] | | | +--------+ + + + [...] [place] | | | | | | [address] | | | | | | [phone] | | | | | | | | +--------+ + + + + documented as of this encounter Visit Diagnoses Not on filedocumented in this encounter"
--- OUTSIDE RECORDS SUMMARY | ~2019-03-12 | XMS | Encounter Summary ---
Demographics + + + | Address | [address] | | | [place] [address] | + + + | Home Phone [...] | Author | [facility] | | | and [place] | + + + | Organization | [facility] | | [...] Team Providers + +------+ + | Care Team Assembly Line Machine Operator Name | Role [...] | | | | 21) End | [place], [place] | [place], [place] | | | | | stage renal | [address] | [address] Phone: | | | | | disease | Phone: | [phone] | | | | | ([facility]) | [phone] | Fax: | | | | | Infection | Fax: | [phone] | | | | | and | [phone] | | | | | | inflammatory | | | | | | | reaction | | | | | | | due to | | | | | | | peritoneal | | | | | | | dialysis | | | | | | | catheter | | | | | | | Procedures | | | | | | | [place] OFFICE | | | | | | [...] | | [address] | [place], [address] | (Primary Dx); | | | | [place], [place] | [place], [place] | Anemia in ESRD | | | | [address] | [address] | (end-stage renal | | | | [phone] | | disease) ([facility]) | +--------+ + + + + [...] recheck her Hb in one week. CC: [place] Fina Joy MD, Renal Transplant Clinic, [facility] Blake Chavarria MD, FACS documented [...] [place] | | | | | | [place] [address] | | | | | | [phone] | | | | | | | [...]
--- OUTSIDE RECORDS SUMMARY | ~2019-03-12 | XMS | Encounter Summary ---
Demographics + + + | Address | [address] | | | [place] [address] | + + + | Home Phone [...] | Author | [facility] | | | and [place] | + + + | Organization | [facility] [...] Providers + +------+ + | Care Research Tech Name | Role | Phone | [...] NEPHROLOGY [address] | M, DO [address] [place] | | | | | [address] | [place], [address] | | | | | [place], [place] | [place], [place] | | | | | [address] | [address] | | | | | [phone] | | | +--------+ + + + [...] [place] | | | | | | [place] [address] | | | | | | [phone] | | | | | | | | +--------+---------+ + + + documented as of this encounter Visit Diagnoses Not on filedocumented in this encounter"
--- OUTSIDE RECORDS SUMMARY | ~2019-03-12 | XMS | Encounter Summary ---
Demographics + + + | Address | [address] | | | [place] [address] | + + + | Home Phone [...] | | | | | [place] [address] | | + + + + + | Thania Mallory | ECON | [address] | | | | | [place] [address] | | + + + + + | Deidra Weldon | ECON | [address] | | | | | [place] | | | | | [address] | | + + + + + Care Team Providers + +------+ + | Care Telegraphic Typewriter Installer Name | Role | Phone | [...] | [address] | [facility] | | | | | [address] [place], | [place], [place] | | | | | [place] [address] | [address] | | | | | [phone] | | | +--------+ + + + [...] Denise | | | | | | [place] | | | | | | [address] | | | | | | [phone] | | | | | | | | +--------+ + + + + documented as of this encounter Visit Diagnoses Not on filedocumented in this encounter"
--- OUTSIDE RECORDS SUMMARY | ~2019-03-12 | XMS | Encounter Summary ---
Demographics + + + | Address | [address] | | | [place] [address] | + + + | Home Phone [...] | | | | | [place] [address] | | + + + + + | Thania Mallory | ECON | [address] | | | | | [place] [address] | | + + + + + | Deidra Weldon | ECON | [address] | | | | | [place] | | | | | [address] | | + + + + + Care Team Providers + +------+ + | Care Assistant Director Of Residence Life Name | Role | Phone | [...] erpretation | Cardiology at | [address] [facility] | disease (HCC) | | | | [place] | [address] | (Primary Dx) | | | | [facility] | [place], [place] | | | | | [address] | [address] | | | | | Mailcode: [place] | [phone] | | | | | [place] | | | | | | [place], [place] | | | | | | [address] | | | | | | [phone] | | | +--------+ + + + [...] Denise | | | | | | [place], [place] | | | | | | [address] | | | | | | [phone] | | | | | | | [...]
--- OUTSIDE RECORDS SUMMARY | ~2019-03-12 | XMS | Encounter Summary ---
Demographics + + + | Address | [address] | | | [place] [address] | + + + | Home Phone [...] | | | | | [place] [address] | | + + + + + | Thania Mallory | ECON | [address] | | | | | [place] [address] | | + + + + + | Deidra Weldon | ECON | [address] | | | | | [place] | | | | | [address] | | + + + + + Care Team Providers + +------+ + | Care Manager Name | Role | Phone | [...] | | | | | [place] | [place] [address] | | | | | [facility] | [place], [place] | | | | | [address] | [address] | | | | | Mailcode: D[facility]7 | [phone] | | | | | [place] | | | | | | [place], [place] | | | | | | [address] | | | | | | [phone] | | | +--------+ + + + [...] Denise | | | | | | [place] | | | | | | [address] | | | | | | [phone] | | | | | | | | +--------+ + + + + documented as of this encounter Visit Diagnoses Not on filedocumented in this encounter"
--- OUTSIDE RECORDS SUMMARY | ~2019-03-12 | XMS | Encounter Summary ---
Demographics + + + | Address | [address] | | | [place] [address] | + + + | Home Phone [...] | | | | | [place] [address] | | + + + + + | Thania Mallory | ECON | [address] | | | | | [place] [address] | | + + + + + | Deidra Weldon | ECON | [address] | | | | | [place] | | | | | [address] | | + + + + + Care Team Providers + +------+ + | Care Nursing Service Director Name | Role | Phone | [...] | | [address] | [facility] | | | | | [facility], | [place], [place] | | | | | [place] [address] | [address] | | | | | [phone] | | | +--------+ + + + [...] Denise | | | | | | [place], [place] | | | | | | [address] | | | | | | [phone] | | | | | | | | +--------+ + + + + documented as of this encounter Visit Diagnoses Not on filedocumented in this encounter"
--- OUTSIDE RECORDS SUMMARY | ~2019-03-12 | XMS | Encounter Summary ---
Demographics + + + | Address | [address] | | | [place] [address] | + + + | Home Phone [...] | | | | | [place] [address] | | + + + + + | Thania Mallory | ECON | [address] | | | | | [place] [address] | | + + + + + | Deidra Weldon | ECON | [address] | | | | | [place] | | | | | [address] | | + + + + + Care Team Providers + +------+ + | Care High Tension Tester Name | Role | Phone | [...] Nephrology at | RN [address] [facility] | | | | | [place] | [facility] | | | | | [facility] | [place], [place] | | | | | [address] [place] [address] Dr | [address] | | | | | Mailcode: D[facility]7 | | | | | | [place] | | | | | | [place], [place] | | | | | | [address] | | | | | | [phone] | | | +--------+ + + + [...] | | | | | | [place], [place] | | | | | | [address] | | | | | | [phone] | | | | | | | | +--------+ + + + + documented as of this encounter Visit Diagnoses + + | Diagnosis | + + | 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
--- OUTSIDE RECORDS SUMMARY | ~2019-03-12 | XMS | Encounter Summary ---
Demographics + + + | Address | [address] | | | [place] [address] | + + + | Home Phone [...] | Author | [facility] | | | and [place] | + + + | Organization | [facility] [...] Providers + +------+ + | Care Purchasing Contracting Clerk Name | Role | Phone | + +------+ + | Jonathan Alonso MD | PCP | | + +------+ + Encounter Details +--------+ + + + + | Date | Type | Department | Care Team | Description | +--------+ + + + + | 03/27/ | Orders Only | [facility] | Rik Simon MD | | | 2014 | | VASCULAR SURGERY | [address] | | | | | [address] | [place], [place] | | | | | [address] [place] | [address] | | | | | [place], [place] | [phone] | | | | | [address] | | | | | | [phone] | | | +--------+ + + + [...] [place] | | | | | | [place] [address] | | | | | | [phone] | | | | | | | [...]
--- OUTSIDE RECORDS SUMMARY | ~2019-03-12 | XMS | Encounter Summary ---
Demographics + + + | Address | [address] | | | [place] [address] | + + + | Home Phone [...] | Author | [facility] | | | and [place] | + + + | Organization | [facility] | | [...] Team Providers + +------+ + | Care Acreage Reporter Name | Role | Phone | [...] [place] | | | | | | [address] | | | | | | [phone] | | | +--------+ + + + [...] [place] | | | | | | [place] [address] | | | | | | [phone] | | | | | | | | +--------+---------+ + + + documented as of this encounter Visit Diagnoses Not on filedocumented in this encounter"
--- OUTSIDE RECORDS SUMMARY | ~2019-03-12 | XMS | Encounter Summary ---
Demographics + + + | Address | [address] | | | [place] [address] | + + + | Home Phone [...] | Author | [facility] | | | and [place] | + + + | Organization | [facility] [...] Providers + +------+ + | Care Sql Report Analyst Name | Role | Phone | [...] NEPHROLOGY [address] | M, DO [address] [place] | | | | | [address] | [place], [address] | | | | | [place], [place] | [place], [place] | | | | | [address] | [address] | | | | | [phone] | | | +--------+ + + + [...] Jennings - 12/29/2016 3:48 PM PDTOutside records: [facility] drug utilization revie w form confidential [...] [place] | | | | | | [place] [address] | | | | | | [phone] | | | | | | | | +--------+---------+ + + + documented as of this encounter Visit Diagnoses Not on filedocumented in this encounter"
--- OUTSIDE RECORDS SUMMARY | ~2019-03-12 | XMS | Encounter Summary ---
Demographics + + + | Address | [address] | | | [place] [address] | + + + | Home Phone [...] + + | Author | [facility] | | | and [place] | + + + | Organization | [facility] | | | [...] Providers + +------+ + | Care Photo Stylist Name | Role | Phone | + [...] | | | | [address]) End | [place], [place] | [place], [place] | | | | | stage renal | [address] | [address] Phone: | | | | | disease | Phone: | [phone] | | | | | ([facility]) | [phone] | Fax: | | | | | Infection | Fax: | [phone] | | | | | and | [phone] | | | | | | inflammatory [...] | | [address] | [place], [address] | (Primary Dx); | | | | [place], [place] | [place], [place] | Anemia in ESRD | | | | [address] | [address] | (end-stage renal | | | | [phone] | | disease) ([facility]) | +--------+ + [...] There fore she has had construction of siletz tribe radio cephalic fistula in her left arm [...] Chavarria's help with her permanent AVF. C: [place] Fina Joy MD, [facility]al Transplant [facility], [facility] documented in thi s encounter [...] [place] | | | | | | [place] [address] | | | | | | [phone] | | | | | | | [...]
--- OUTSIDE RECORDS SUMMARY | ~2019-03-12 | XMS | Encounter Summary ---
Demographics + + + | Address | [address] | | | [place] [address] | + + + | Home Phone [...] Author | [facility] | | | and [place] | + + + | Organization | [facility] [...] Team Providers + +------+ + | Care Outdoor Landscape Architect Name | Role | Phone | [...] + + | 11/12/ | Telephone | [facility] | Silvia Rabago | DME (carlie, cmn, | | 2018 | | [address] | ABRIL Hernandez | [facility]) | | | | [place] | | | | | | [address] | | | | | | [phone] | | | +--------+ + + + [...] | | | | | [place] [address] | | | | | | [phone] | | | | | | | | +--------+---------+ + + + documented as of this encounter Visit Diagnoses Not on filedocumented in this encounter"
--- OUTSIDE RECORDS SUMMARY | ~2019-03-12 | XMS | Encounter Summary ---
Demographics + + + | Address | [address] | | | [place] [address] | + + + | Home Phone [...] | | | | | [place] [address] | | + + + + + | Thania Mallory | ECON | [address] | | | | | [place] [address] | | + + + + + | Deidra Weldon | ECON | [address] | | | | | [place] | | | | | [address] | | + + + + + Care Team Providers + +------+ + | Care Game Agent Name | Role | Phone | [...] lab/Provider | | | | [address] [place], | [place], [place] | updated) | | | | [place] [address] | [address] | | | | | [phone] | [phone] | | | | | | | [...] Denise | | | | | | [place], [place] | | | | | | [address] | | | | | | [phone] | | | | | | | | +--------+ + + + + documented as of this encounter Visit Diagnoses Not on filedocumented in this encounter"
--- OUTSIDE RECORDS SUMMARY | ~2019-03-12 | XMS | Encounter Summary ---
Demographics + + + | Address | [address] | | | [place] [address] | + + + | Home Phone [...] | | | | | [place] [address] | | + + + + + | Thania Mallory | ECON | [address] | | | | | [place] [address] | | + + + + + | Deidra Weldon | ECON | [address] | | | | | [place] | | | | | [address] | | + + + + + Care Team Providers + +------+ + | Care Woven Label Designer Name | Role | Phone | [...] | | | [address] | [place] | | | | | [place], | [place], [place] | | | | | [place] [address] | [address] | | | | | [phone] | [phone] | | | | | | | [...] Denise | | | | | | [place], [place] | | | | | | [address] | | | | | | [phone] | | | | | | | | +--------+ + + + + documented as of this encounter Visit Diagnoses Not on filedocumented in this encounter"
--- OUTSIDE RECORDS SUMMARY | ~2019-03-12 | XMS | Encounter Summary ---
Demographics + + + | Address | [address] | | | [place] [address] [...] + | Author | [facility] | | | and Josephana | + + + | Organization | [facility] | | [...] Team Providers + +------+ + | Care Arm Rest Builder Name | Role | Phone | [...] | | stage renal | [address] | [address] [place] [address] | | | | | disease) | Shun [place] | [place] | | | | | ([facility]) | [address] | [address] | | | | | Anemia in | [place], [place] | [place], [place] | | | | | ESRD | [address] | [address] Phone: | | | | | (end-stage | Phone: | [phone] | | | | | renal | [phone] | Fax: | | | | | disease) | Fax: | [phone] | | | | | ([facility]) | [phone] | | | | | | Procedures | | | | | | | MD ESRD | | | | | | [...] | | [address] | [place], [address] | (Primary Dx) | | | | [place], [place] | [place], [place] | | | | | [address] | [address] | | | | | [phone] | | | +--------+ + + + [...] Will recheck her in 2 weeks. : [facility] Jonathan Alonso MD, PhD documented in [...] [place] | | | | | | [place] [address] | | | | | | [phone] | | | | | | | | +--------+---------+ + + + documented as of this encounter Visit Diagnoses + + | Diagnosis | + + | ESRD (end stage renal disease) (HCC) - Primary End stage renal disease | + + documented in this encounter"
--- OUTSIDE RECORDS SUMMARY | ~2019-03-12 | XMS | Encounter Summary ---
Demographics + + + | Address | [address] | | | [place] [address] | + + + | Home Phone [...] + | Author | [facility] | | | and Josephana | + + + | Organization | [facility] | | | and [...] Team Providers + +------+ + | Care Chiseler Head Name | Role | Phone | [...] | | | | [address] | [place], [place] | [place], [place] | | | | | stage renal | [address] | [address] Phone: | | | | | disease | Phone: | [phone] | | | | | ([facility]) | [phone] | Fax: | | | | | Infection | Fax: | [phone] | | | | | and | [phone] | | | | | | inflammatory [...] [address] | renal disease) ([facility]) | | | | [address] | [place], [address] | (Primary Dx); | | | | [place], [place] | [place], [place] | Anemia in ESRD | | | | [address] | [address] | (end-stage renal | | | | [phone] | | disease) ([facility]) | +--------+ + + + + [...] CC: Jamil Joy MD, Renal Transplant Clinic, [facility] Blake Chavarria MD, FACS documented [...] [place] | | | | | | [place] [address] | | | | | | [phone] | | | | | | | [...]
--- OUTSIDE RECORDS SUMMARY | ~2019-03-12 | XMS | Encounter Summary ---
Demographics + + + | Address | [address] | | | [place] [address] | + + + | Home Phone [...] + | Author | [facility] | | | and Josephana | + + + | Organization | [facility] | | [...] Team Providers + +------+ + | Care Anti Air Warfare Operations Officer Name | Role | Phone | [...] | | | | | | | [place] | | | | | | | [...] Fistula | | | | [address] | [place] | Creation | | | | [place] | [place] [address] | | | | | [address] | [phone] | | | | | [phone] | | | +--------+---------+ + + + [...] be different f rom the original. [facility] POST-OP INSTRUCTIONS: Arterio-Venous Fistula 1. Keep [...] may interact with prescription medicines or other unmv-dcp-qkbjdit (OTC) drugs. The FDA recommends reading OTC medication labels careful ly to clearly understand the list of active ingredients, directions, and any precautions to help avoid taking too muchacetaminophen. If you have questions, ask your pharmacist or a [facility] care provider. Managing Nausea Some people have [...] or skin changes (rash, itching, or hives). 4364-[address] [employer]. [address] [place] [address], [place] [address]. All righ ts reserved. This information is [...] + + +---------+ + + | epoetin jnena | Inject 0.4 mLs | | 0 [...] | | | | | [place] [address] | | | | | | [phone] | | | | | | | [...] mL/min/1.73m2 | [facility] | | | [facility]ER[facility] | (<18). | | MEDICAL | | [...] | [address] | [place] | [phone] | | [facility] | | [address] | | | - LABORATORY | | | | + + + + + | [address] | [address] | [place], [place] | | | [facility] | | [address] | | | - LABORATORY | | [...]
--- OUTSIDE RECORDS SUMMARY | ~2019-03-12 | XMS | Encounter Summary ---
Demographics + + + | Address | [address] | | | [place] [address] | + + + | Home Phone [...] | | | | | [place] [address] | | + + + + + | Thania Mallory | ECON | [address] | | | | | [place] [address] | | + + + + + | Deidra Weldon | ECON | [address] | | | | | [place] | | | | | [address] | | + + + + + Care Team Providers + +------+ + | Care Enforcement Officer Name | Role | Phone | [...] | | | | | [address] [place], | [place], [place] | | | | | [place] [address] | [address] | | | | | [phone] | | | +--------+ + + + [...] Denise | | | | | | [place] | | | | | | [address] | | | | | | [phone] | | | | | | | | +--------+ + + + + documented as of this encounter Visit Diagnoses Not on filedocumented in this encounter"
--- OUTSIDE RECORDS SUMMARY | ~2019-03-12 | XMS | Encounter Summary ---
Demographics + + + | Address | [address] | | | [place] [address] | + + + | Home Phone [...] | | | | | [place] [address] | | + + + + + | Thania Mallory | ECON | [address] | | | | | [place] [address] | | + + + + + | Deidra Weldon | ECON | [address] | | | | | [place] | | | | | [address] | | + + + + + Care Team Providers + +------+ + | Care Tumbler Tender Name | Role | Phone | [...] | | | | | [address] [place], | [place], [place] | | | | | [place] [address] | [address] | | | | | [phone] | [phone] | | | | | | | [...] Denise | | | | | | [place] | | | | | | [address] | | | | | | [phone] | | | | | | | | +--------+ + + + + documented as of this encounter Visit Diagnoses Not on filedocumented in this encounter"
--- OUTSIDE RECORDS SUMMARY | ~2019-03-12 | XMS | Encounter Summary ---
Demographics + + + | Address | [address] | | | [place] [address] | + + + | Home Phone [...] | | | | | [place] [address] | | + + + + + | Thania Mallory | ECON | [address] | | | | | [place] [address] | | + + + + + | Deidra Weldon | ECON | [address] | | | | | [place] | | | | | [address] | | + + + + + Care Team Providers + +------+ + | Care Hardwood Floor Sander Name | Role | Phone | [...] | | | | [address] | [facility] | | | | | [facility], | [place], [place] | | | | | [place] [address] | [address] | | | | | [phone] | | | +--------+ + + + [...] [facility] | | | | | | [address] | | | | | | [phone] | | | | | | | | +--------+ + + + + documented as of this encounter Visit Diagnoses Not on filedocumented in this encounter"
--- OUTSIDE RECORDS SUMMARY | ~2019-03-12 | XMS | Encounter Summary ---
Demographics + + + | Address | [address] | | | [place] [address] | + + + | Home Phone [...] | | | | | [place] [address] | | + + + + + | Thania Mallory | ECON | [address] | | | | | [place] [address] | | + + + + + | Deidra Weldon | ECON | [address] | | | | | [place] | | | | | [address] | | + + + + + Care Team Providers + +------+ + | Care Mosaic Technician Name | Role | Phone | [...] | | | | | Caro [facility], | [place], [place] | | | | | [place] [address] | [address] | | | | | [phone] | | | +--------+ + + + [...] Denise | | | | | | [place] | | | | | | [address] | | | | | | [phone] | | | | | | | | +--------+ + + + + documented as of this encounter Visit Diagnoses Not on filedocumented in this encounter"
--- OUTSIDE RECORDS SUMMARY | ~2019-03-12 | XMS | Encounter Summary ---
Demographics + + + | Address | [address] | | | [place] [address] | + + + | Home Phone [...] | | | | | [place] [address] | | + + + + + | Thania Mallory | ECON | [address] | | | | | [place] [address] | | + + + + + | Deidra Weldon | ECON | [address] | | | | | [place] | | | | | [address] | | + + + + + Care Team Providers + +------+ + | Care Mill Operator Helper Name | Role | Phone [...] Transplant Services | RN [address] [facility] | Update | | | | [address] [facility] | [facility] | | | | | Park [facility], | [place], [place] | | | | | [place] [address] | [address] | | | | | [phone] | | | +--------+ + + + [...] [facility] | | | | | | [address] | | | | | | [phone] | | | | | | | | +--------+ + + + + documented as of this encounter Visit Diagnoses Not on filedocumented in this encounter"
--- OUTSIDE RECORDS SUMMARY | ~2019-03-12 | XMS | Encounter Summary ---
Demographics + + + | Address | [address] | | | [place] [address] | + + + | Home Phone [...] | | | | | [place] [address] | | + + + + + | Thania Mallory | ECON | [address] | | | | | [place] [address] | | + + + + + | Deidra Weldon | ECON | [address] | | | | | [place] | | | | | [address] | | + + + + + Care Team Providers + +------+ + | Care Soda Fountain Manager Name | Role | Phone | [...] Hospital | | | | | Caro [facility], | [place], [place] | | | | | [place] [address] | [address] | | | | | [phone] | | | +--------+ + + + [...] Denise | | | | | | [place] | | | | | | [address] | | | | | | [phone] | | | | | | | | +--------+ + + + + documented as of this encounter Visit Diagnoses Not on filedocumented in this encounter"
--- OUTSIDE RECORDS SUMMARY | ~2019-03-12 | XMS | Encounter Summary ---
Demographics + + + | Address | [address] | | | [place] [address] | + + + | Home Phone [...] | [facility] | | | and Josephana | + + + | Organization | [facility] | | [...] Providers + +------+ + | Care Machine Castings Plasterer Name | Role | Phone | + +------+ + PCP | Unavailable | + +------+ + Encounter Details +--------+ + + + + | Date | Type | Department | Care Team | Description | +--------+ + + + + | 07/10/ | Hospital | [facility] | | | | 2008 - | Encounter | MED CTR OP REHAB | | | | | | [address] | | | | 08/03/ | | [place] [address] | | | | 2008 | | [phone] | | | +--------+ + + + [...] DAV[place] | | | | | | [place] [address] | | | | | | [phone] | | | | | | | | +--------+---------+ + + + documented as of this encounter Visit Diagnoses Not on filedocumented in this encounter"
--- OUTSIDE RECORDS SUMMARY | ~2019-03-12 | XMS | Encounter Summary ---
Demographics + + + | Address | [address] | | | [place] [address] | + + + | Home Phone [...] | | | | | [place] [address] | | + + + + + | Thania Mallory | ECON | [address] | | | | | [place] [address] | | + + + + + | Deidra Weldon | ECON | [address] | | | | | [place] | | | | | [address] | | + + + + + Care Team Providers + +------+ + | Care Construction Trades Teacher Name | Role | Phone | [...] | Nephrology at | MD Emanuel [address] [facility] | | | | | [place] | [facility] | | | | | [facility] | [place], [place] | | | | | [address] [facility] | [address] | | | | | Mailcode: [id number] | [phone] | | | | | [place] | | | | | | [place], [place] | | | | | | [address] | | | | | | [phone] | | | +--------+ + + + [...] [facility] | | | | | | [address] | | | | | | [phone] | | | | | | | | +--------+ + + + + documented as of this encounter Visit Diagnoses Not on filedocumented in this encounter"
--- OUTSIDE RECORDS SUMMARY | ~2019-03-12 | XMS | Encounter Summary ---
Demographics + + + | Address | [address] | | | [place] [address] | + + + | Home Phone [...] + | Author | [facility] | | | and Josephana | + + + | Organization | [facility] | [...] Team Providers + +------+ + | Care Payroll Accounting Manager Name | Role | Phone | [...] [address] | renal disease) ([facility]) | | | | [address] | [place], [address] | (Primary Dx) | | | | [place], [place] | [place], [place] | | | | | [address] | [address] | | | | | [phone] | | | +--------+ + + + [...] of documents of Clinic Attendance here at [facility], with the regional guide, Elisabeth Quijano RN. Outpatient Prescriptions Marked [...] A&O x3, at this point. 3. [facility] Staff have given her every opportunity to succeed here at the Clinic in [place]. 4. Will recheck her in 2 weeks. : [place] Fina documented in thi s encounter Plan [...] DAV[place] | | | | | | [place] [address] | | | | | | [phone] | | | | | | | | +--------+---------+ + + + documented as of this encounter Visit Diagnoses + + | Diagnosis | + + | ESRD (end stage renal disease) (HCC) - Primary End stage renal disease | + + documented in this encounter"
--- OUTSIDE RECORDS SUMMARY | ~2019-03-12 | XMS | Encounter Summary ---
Demographics + + + | Address | [address] | | | [place] [address] | + + + | Home Phone [...] | | | | | [place] [address] | | + + + + + | Thania Mallory | ECON | [address] | | | | | [place] [address] | | + + + + + | Deidra Weldon | ECON | [address] | | | | | [place] | | | | | [address] | | + + + + + Care Team Providers + +------+ + | Care Warp Scouring Vat Tender Name | Role | Phone | [...] | | [address] | [facility] | | | | | Caro [facility], | [place], [place] | | | | | [place] [address] | [address] | | | | | [phone] | | | +--------+ + + + [...] | | | | | | [place], [place] | | | | | | [address] | | | | | | [phone] | | | | | | | | +--------+ + + + + documented as of this encounter Visit Diagnoses Not on filedocumented in this encounter"
--- OUTSIDE RECORDS SUMMARY | ~2019-03-12 | XMS | Encounter Summary ---
Demographics + + + | Address | [address] | | | [place] [address] | + + + | Home Phone [...] | Author | [facility] | | | and Josephana | + + + | Organization | [facility] [...] Team Providers + +------+ + | Care Table Games Dual Rate Supervisor Name | Role | Phone | [...] | Encounter | JOY | MD Emanuel [address] | | | | | [address] | [facility] | | | | | [address] | [place], [place] | | | | | [place], [place] | [address] | | | | | [address] | [phone] | | | | | [phone] | | | +--------+ + + + [...] DAV[place]SON | | | | | | [place] [address] | | | | | | [phone] | | | | | | | | +--------+---------+ + + + documented as of this encounter Visit Diagnoses Not on filedocumented in this encounter"
--- OUTSIDE RECORDS SUMMARY | ~2019-03-12 | XMS | Encounter Summary ---
Demographics + + + | Address | [address] | | | [place] [address] | + + + | Home Phone [...] | Author | [facility] | | | and Josephana | + + + | Organization | [facility] [...] Providers + +------+ + | Care Operations Planner Name | Role | Phone | + [...] | NEPHROLOGY [address] | | | | | [address] | [address] [place] | | | | | [place], [place] | [place] [address] | | | | | [address] | [phone] | | | | | [phone] | | | +--------+--------+ + + + [...] | | | | | [place] [address] | | | | | | [phone] | | | | | | | | +--------+---------+ + + + documented as of this encounter Visit Diagnoses Not on filedocumented in this encounter"
--- OUTSIDE RECORDS SUMMARY | ~2019-03-12 | XMS | Encounter Summary ---
Demographics + + + | Address | [address] | | | [place] [address] | + + + | Home Phone [...] Author | [facility] | | | and Josephana | + + + | Organization | [facility] | | | and [...] Team Providers + +------+ + | Care Cycle Director Name | Role | Phone | [...] NEPHROLOGY [address] | M, DO [address] | | | | | [address] | [place], [address] | | | | | [place], [place] | [place], [place] | | | | | [address] | [address] | | | | | [phone] | | | +--------+ + + + [...] of contact with the dialysis staff in medical technologist clinical on a frequent basis. Outpatient Prescriptions Marked [...] will be rechecked in 2 weeks. : [place] Fina documented in thi s encounter Plan [...] [place] | | | | | | [place] [address] | | | | | | [phone] | | | | | | | | +--------+---------+ + + + documented as of this encounter Visit Diagnoses + + | Diagnosis | + + | ESRD (end stage renal disease) (HCC) - Primary End stage renal disease | + + documented in this encounter"
--- OUTSIDE RECORDS SUMMARY | ~2019-03-12 | XMS | Encounter Summary ---
Demographics + + + | Address | [address] | | | [place] [address] | + + + | Home Phone [...] | | | | | [place] [address] | | + + + + + | Thania Mallory | ECON | [address] | | | | | [place] [address] | | + + + + + | Deidra Weldon | ECON | [address] | | | | | [place] | | | | | [address] | | + + + + + Care Team Providers + +------+ + | Care Supervisor Compounding And Finishing Name | Role | Phone | + [...] | | | | | Caro [place], | | | | | | [place] [address] | | | +--------+ + + + [...] Denise | | | | | | [place], [place] | | | | | | [address] | | | | | | [phone] | | | | | | | [...] DANILO - | [address], | [place] [address] | | | IMMUNOGENETICS/TRANS | [address] | | | | [facility] | | | | + + + + + documented in this encounter Visit Diagnoses Not on filedocumented in this encounter"
--- OUTSIDE RECORDS SUMMARY | ~2019-03-12 | XMS | Encounter Summary ---
Demographics + + + | Address | [address] | | | [place] [address] | + + + | Home Phone [...] | | | | | [place] [address] | | + + + + + | Thania Mallory | ECON | [address] | | | | | [place] [address] | | + + + + + | Deidra Weldon | ECON | [address] | | | | | [place] | | | | | [address] | | + + + + + Care Team Providers + +------+ + | Care Congressional Representative Name | Role | Phone | + +------+ + | Jonathan Alonso MD | PCP | | + +------+ + Encounter Details +--------+------+ + + + | Date | Type | Department | Care Team | Description | +--------+------+ + + + | 01/20/ | Lab | [facility] at [facility] | | 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 [address] | | MEDICARE 9978; [facility] | | | | [address], | | ([place] | | | | [place] [address]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; | | | | [phone] | | Hemodialysis status | | | [...] Denise | | | | | | [place], [place] | | | | | | [address] | | | | | | [phone] | | | | | | | [...] | e | 9:59 AM | MEDICARE 9114 [facility] | procedure are in the | [...] | | | | | stage V ([facility]) | | + +--------+ [...] | | | | | stage V ([facility]) | | + +--------+ [...] | | | | | stage V ([facility]) | | + +--------+ [...] status | | | | | | ([facility]) Chronic | | | | | | kidney disease, | | | | | | stage V ([facility]) | | + +--------+ [...] | | | | | stage V ([facility]) | | + +--------+ + + + | HIV-1,2 AB/HIV-1 P24 | Routin | 01/20/2015 | Allergic purpura- | Results for this | | AG SCRN | e | 9:59 AM | MEDICARE 27[address] [facility] | procedure are in the | | | | PST | ([facility] | results section. | | |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 | | | | | | Hemodialysis status | | | | | | ([facility]) Chronic | | | | | | kidney disease, | | | | | | stage V ([facility]) | | + +--------+ [...] the | | | | PST | ([facility] | results section. | | [...] the | | | | PST | ([facility] | results section. | | [...] the | | | | PST | ([facility] | results section. | | | [...] the | | | | PST | ([facility] | results section. | | [...] the | | | | PST | ([facility] | results section. | | [...] the | | | | PST | ([facility] | results section. | | [...] the | | | | PST | ([facility] | results section. | | [...] the | | | | PST | ([facility] | results section. | | | | [...] the | | | | PST | ([facility] | results section. | | | [...] | + + + + + | [facility] - | [address] | [place] [address] | | | [place] | | | | + + + [...] [facility] | [address] | [place] [address] | | | SERVICES, CORE | PARK [...] [facility] | [address] | [place] [address] | | | SERVICES, SPECIAL | PARK [...] + + | [facility] | [address] | [place] [address] | | | DIAGNOSTIC | [address] [...] + | [facility] - | [address] | [place], [place] [address] | | | [place] | | | | + + + [...] + | [facility] - | [address] | [place] [address] | | | [place] | | | | + + + [...] + + + + | [facility] | [address] | [place] [address] | | | [place] | | | [...] + | [facility] - | [address] | [place] [address] | | | [place] | | | [...] by | | | | | | e-contratos,[address] | | | | | | Pippa Sauceda, [facility],[place] | | | | | | [address] | | | | | | [phone].[email or web address]. | | | | | | Faisal [...] | [facility] | | [address] | | + + + + + [...] + + + | [facility] - | [address] | [place] [address] | | | [place] | | | | + + + [...] by | | | | | | [facility],[address] | | | | | | [place] | | | | | | [address] | | | | | | [phone]. | | | | | | Faisal [...] [facility] | [address] | [place], [place] | | | [facility] | | [address] | | + + + + + [...] [facility] | [address] | [place] [address] | | | SERVICES, CORE | PARK [...] | + + + + + | [facility] | [address] | [place] [address] | | | SERVICES, CORE | LONG [...] [facility] | [address] | [place] [address] | | | SERVICES, CORE | PARK [...] [facility] | [address] | [place] [address] | | | SERVICES, CORE | PARK [...] | + + + + + | [facility] | [address] | [place] [address] | | | SERVICES, HOMERO | LONG [...] | | | LABORATORY | | | COMORAN | | | SERVICES, | | | [...] [facility] | [address] | [place] [address] | | | SERVICES, CORE | PARK [...]
--- OUTSIDE RECORDS SUMMARY | ~2019-03-12 | XMS | Encounter Summary ---
Demographics + + + | Address | [address] | | | [place] [address] | + + + | Home Phone [...] | | | | | [place] [address] | | + + + + + | Thania Mallory | ECON | [address] | | | | | [place] [address] | | + + + + + | Deidra Weldon | ECON | [address] | | | | | [place] | | | | | [address] | | + + + + + Care Team Providers + +------+ + | Care Audio Operator Name | Role | Phone | [...] on | | | | [address] [place], | [place], [place] | [place] | | | | [place] [address] | [address] | care plan) | | | | [phone] | | | +--------+ + + + [...] Denise | | | | | | [place] | | | | | | [address] | | | | | | [phone] | | | | | | | | +--------+ + + + + documented as of this encounter Visit Diagnoses Not on filedocumented in this encounter"
--- OUTSIDE RECORDS SUMMARY | ~2019-03-12 | XMS | Encounter Summary ---
Demographics + + + | Address | [address] | | | [place] [address] | + + + | Home Phone [...] | Author | [facility] | | | and [place] | + + + | Organization | [facility] [...] Providers + +------+ + | Care Pediatric Occupational Therapist Name | Role | Phone [...] | | [address] | [facility] | | | | | [address] | [facility] [place] [address] | | | | | [phone] | [phone] | | | | | | | [...] [address] | | | | | | [place] [address] | | | | | | [phone] | | | | | | | [...]
--- OUTSIDE RECORDS SUMMARY | ~2019-03-12 | XMS | Encounter Summary ---
Demographics + + + | Address | [address] | | | [place] [address] | + + + | Home Phone [...] | | | | | [place] [address] | | + + + + + | Thania Mallory | ECON | [address] | | | | | [place] [address] | | + + + + + | Deidra Weldon | ECON | [address] | | | | | [place] | | | | | [address] | | + + + + + Care Team Providers + +------+ + | Care Intermission Coordinator Name | Role | Phone | [...] | | | [address] | [facility] | | | | | [facility], | [place], [place] | | | | | [place] [address] | [address] | | | | | [phone] | | | +--------+ + + + [...] Denise | | | | | | [place] | | | | | | [address] | | | | | | [phone] | | | | | | | | +--------+ + + + + documented as of this encounter Visit Diagnoses Not on filedocumented in this encounter"
--- OUTSIDE RECORDS SUMMARY | ~2019-03-12 | XMS | Encounter Summary ---
Demographics + + + | Address | [address] | | | [place] [address] | + + + | Home Phone [...] | [facility] | | | and [place] | + + + | Organization | [facility] | | [...] Team Providers + +------+ + | Care Starch And Prosize Mixer Name | Role | Phone | [...] stage renal | [address] | [address] [place] [address] | | | | | disease) | [address] | [place] | | | | | ([facility]) | [address] | [address] | | | | | Anemia in | [place], [place] | [place] | | | | | ESRD | [address] | [address] Phone: | | | | | (end-stage | Phone: | [phone] | | | | | renal | [phone] | Fax: | | | | | disease) | Fax: | [phone] | | | | | ([facility]) | [phone] | | | | | | Procedures | | | | | | | [place] OFFICE | | | | | | [...] | | [address] | [place] | (Primary Dx) | | | | [place], [place] | [place], [place] | | | | | [address] | [address] | | | | | [phone] | | | +--------+ + + + [...] Will recheck her in 2 weeks. : [place] Fina Joy M.D., Pediatric Nephrology, [facility] documented in th is encounter Plan of Treatment +--------+---------+ + + + | Date | Type | Specialty | Care Team | Description | +--------+---------+ + + + | 04/18/ | Office | Pulmonology | Denny Alexander | | | 2019 | Visit | | Deny Briggs MD [address] | | | | | | [address] | | | | | | [place] [address] | | | | | | [phone] | | | | | | | | +--------+---------+ + + + documented as of this encounter Visit Diagnoses + + | Diagnosis | + + | ESRD (end stage renal disease) (HCC) - Primary End stage renal disease | + + documented in this encounter"
--- OUTSIDE RECORDS SUMMARY | ~2019-03-12 | XMS | Encounter Summary ---
Demographics + + + | Address | [address] | | | [place] [address] | + + + | Home Phone [...] | | | | | [place] [address] | | + + + + + | Thania aMllory | ECON | [address] | | | | | [place] [address] | | + + + + + | Deidra Weldon | ECON | [address] | | | | | [place] | | | | | [address] | | + + + + + Care Team Providers + +------+ + | Care It Security Project Manager Name | Role | Phone [...] | 07/12/ | Documentati | Clinical | Klesi Martinez, | Transplant Status | | 2017 | on | Transplant Services | RN [address] | Change (Delisting) | | | | [address] | [facility] | | | | | [address] [place], | [place], [place] | | | | | [place] [address] | [address] | | | | | [phone] | | | +--------+ + + + [...] Denise | | | | | | [place] | | | | | | [address] | | | | | | [phone] | | | | | | | | +--------+ + + + + documented as of this encounter Visit Diagnoses Not on filedocumented in this encounter"
--- OUTSIDE RECORDS SUMMARY | ~2019-03-12 | XMS | Encounter Summary ---
Demographics + + + | Address | [address] | | | [place] [address] | + + + | Home Phone [...] | [facility] | | | and [place] | + + + | Organization | [facility] [...] Providers + +------+ + | Care Roll Over Loader Name | Role | Phone | [...] NEPHROLOGY [address] | M, DO [address] | | | | | [address] | [place] | | | | | [place], [place] | [place], [place] | | | | | [address] | [address] | | | | | [phone] | | | +--------+ + + + [...] [address] | | | | | | [place] [address] | | | | | | [phone] | | | | | | | | +--------+---------+ + + + documented as of this encounter Visit Diagnoses Not on filedocumented in this encounter"
--- OUTSIDE RECORDS SUMMARY | ~2019-03-12 | XMS | Encounter Summary ---
Demographics + + + | Address | [address] | | | [place] [address] | + + + | Home Phone [...] | [facility] | | | and [place] | + + + | Organization | [facility] | [...] Team Providers + +------+ + | Care Riprap Worker Name | Role | Phone | + +------+ + | Tien Nicholson MD | PCP | | + +------+ + Encounter Details +--------+ + + + + | Date | Type | Department | Care Team | Description | +--------+ + + + + | 10/17/ | Hospital | [facility] | Nikita, | SOB (shortness of | | 2019 - | Encounter | [facility] | MD [address] | breath); Pleural | | | | CARE FLOOR [address] | effusion on right; | | 10/20/ | | [address] | [place] [address] | ESRD needing | | 2019 | | [place], [place] | [phone] | dialysis ([facility]); End | | | | [address] | | stage renal disease | | | | [phone] | | (HCC) | +--------+ + + [...] + + +---------+ + + | B Ilyipnk-N-Thlxr | Take 1 tablet by | | [...] 10/19/182357 Date of Service: 10/19/182357 Status: Signed Prototype Special Build: Vira Ford RN (Registered Nurse) No acute [...] 10/19/181827 Date of Service: 10/19/181826 Status: Signed Prototype Special Build: Trent Jovel RN (Registered Nurse) Dialysis completed today 2.4L removed. Remains on fluid restriction. Medicated for pain x 2. End of shift review complete. Trent Jovel RN onver arturo Transaction, Provider Unknown - 10/19/2018 3:36 PM PDT Case Management by DORON Diallo at 10/19/18 1536 Author: DORON Diallo Service: (none) Author Type: Scrap Sorter Filed: 10/19/18 1537 Date of Service: 10/19/18 1536 Status: Signed Prototype Special Build: DORON Diallo (Scrap Sorter) Discharge planning: Return home when medically ready for discharge. Pt is receiving dialysi s on MWF. Pt is currently on 4L O2, pt may need a home O2 evaluation at discharge. Antonio Carrasco MD - 10/19/2018 12:14 PM PDTFormatting of this note might be different from the orig inal. Progress Notes by Antonio Pabon MD at 10/19/18 2264 Author: Antonio Pabon MD Service: Nephrology Author Type: Physician Filed: 10/25/18 4322 Date of Service: 10/19/18 1214 Status: Addendum Prototype Special Build: Antonio Pabon MD (Physician) Related Notes: Original Note by Antonio Pabon MD (Physician) filed at 10/25/18 6071 [facility]: NEPHROLOGY Progress Note Dara Weldon 23 y.o. [id number] 4465/[id number] female TIEN NICHOLSON 23-year-old female with [...] AV FISTULA; Surgeon: Rik Simon MD; Location: [facility] OR; Service: Vascula r; Laterality: Left; cephalic AV FISTULA REPAIR Left 03/07/2014 Procedure: AV FISTULA - GRAFT REPAIR/REVISION; Surgeon: Rik Simon MD; Location: [facility] IN OR; Service: Vascular; Laterality: Left; DECLOT GRAFT Left 03/07/2014 Procedure: GRAFT - DECLOT; Surgeon: Rik Simon MD; Location: [facility] OR; Service: Vas cular; Laterality: Left; DIALYSIS FISTULA CREATION N/A 04/08/2014 Procedure: DIALYSIS CATHETER - INSERTION; Surgeon: Rik Simon MD; Location: [facility] OR ; Service: Vascular; Laterality: N/A; tunneled catheter LAPAROSCOPIC PERITONEAL DIALYSIS CATHETER INSERTION x2 LAPAROSCOPIC PERITONEAL DIALYSIS CATHETER INSERTION Right 07/2013 current dialysis access MWF dialysis RENAL BIOPSY Left 2003 SUPERFICIALIZATION OF AV FISTULA Left 06/24/2014 Procedure: AV FISTULA - SUPERFICIALIZATION; Surgeon: Rik Simno MD; Location: [facility] OR; Service: [...] ral space is punctured with an 5 Libyan Oravel centesis catheter. Fluid is aspirated without complication. [...] 1 VIEW (10/17/2018); CHEST TWO V IEWS 86373 (10/17/2018); FINDINGS: Compared to the prior examination [...] MR, severe TR.severe pulmonary hypertens ion Chest a-tju-agtcdgcxbstu with pulmonary edema and large right pleural [...] earlier and charting completed later Dictation software, [employer], used which may contain error for similar sounding words even af ter review. Personal communication requested for any clarification. inGerber pastrana MD - 10/19/2018 7:48 AM PDT Progress Notes by Gerber Pearson MD at 10/19/18 0748 Author: Gerber Pearson MD Service: Hospitalist Author Type: Physician Filed: 10/19/18 0753 Date of Service: 10/19/1848 Status: Signed Prototype Special Build: Gerber Pearson MD (Physician) [facility]: Hospitalist Progress Note Hospital Day: [...] with dyspnea Patient was recently discharged from [facility] on 08/23/2018. For full note, please see ketan agudelo summary from hospitalist. In summary, the patient was admitted for noncardiogenic pulmo nary edema after thoracentesis. At that point, prior to admission, [facility] in [place] on [facility]/21 where she underwent right th [...] BUN 90 on admission -History of a Gardners Schnlein purpura -Last hemodialysis approximately 2 weeks [...] 10/19/18733 Date of Service: 10/19/18733 Status: Signed Prototype Special Build: Vira Ford RN (Registered Nurse) No acute changes from shift assessment. VSS. Pt medicated for pain as requested and availab le. End of shift review and 24 hour chart check complete. onver arturo Transaction, Provider Unknown - 10/18/2018 5:01 PM PDT Case Management by DORON Diallo at 10/18/181700 Author: DORON Diallo Service: (none) Author Type: Scrap Sorter Filed: 10/18/181706 Date of Service: 10/18/181700 Status: Signed Prototype Special Build: DORON Diallo (Scrap Sorter) Discharge planning: Return home when medically ready for discharge. Gerber Fernandez MD - 10/18/2018 7:46 AM PDT Progress Notes by Gerber Pearson MD at 10/18/18745 Author: Gerber Pearson MD Service: Hospitalist Author Type: Physician Filed: 10/18/18 0751 Date of Service: 10/18/18745 Status: Signed Prototype Special Build: Gerber Pearson MD (Physician) [facility]: Hospitalist Progress Note Hospital Day: [...] with dyspnea Patient was recently discharged from [facility] on 08/23/2018. For full note, please see ketan agudelo summary from hospitalist. In summary, the patient was admitted for noncardiogenic pulmo nary edema after thoracentesis. At that point, prior to admission, she [facility] in [place] on 08/21 where she underwent right th [...] BUN 90 on admission -History of a Gardners Schnlein purpura -Last hemodialysis approximately 2 weeks [...] 10/25/182002 Date of Service: 10/18/18744 Status: Signed Prototype Special Build: Antonio Pabon MD (Physician) [facility]: NEPHROLOGY Progress Note Dara Weldon 23 y.o. [id number] 4465/[id number] female [facility] Day: LOS: 1 day 23-year-old [...] Rik Simon MD; Location: [facility]; Service: Vascula r; Laterality: Left; cephalic AV FISTULA REPAIR Left 03/07/2014 Procedure: AV FISTULA - GRAFT REPAIR/REVISION; Surgeon: Rik Simon MD; Location: [facility] OR; Service: Vascular; Laterality: Left; DECLOT GRAFT Left 03/07/2014 Procedure: GRAFT - DECLOT; Surgeon: Rik Simon MD; Location: [facility]; Service: Vas cular; Laterality: [...] - SUPERFICIALIZATION; Surgeon: Rik Simon MD; Location: [facility]; [...] QTC Calculation (Bezet) 469 ms Calculated P [place] 46 degrees Calculated R [place] 127 degrees Calculated T [place] 94 degrees Diagnosis Normal sinus rhythm Right [...] MR, severe TR.severe pulmonary hypertens ion Chest b-qkc-ifeohslfayig with pulmonary edema and large right pleural [...] earlier and charting completed later Dictation software, [employer], used which may contain error for similar [...] 10/18/1853 Date of Service: 10/18/18650 Status: Signed Prototype Special Build: Ronnie Vargas RN (Registered Nurse) Pt alert and oriented X 4. PRN pain med given for back pain. No other acute changes durin g shift. Chart check complete onver arturo Transaction, Provider Unknown - 10/17/2018 9:48 AM PDT Case Management by DORON Diallo at 10/17/18 0948 Author: DORON Diallo Service: (none) Author Type: Scrap Sorter Filed: 10/17/1854 Date of Service: 10/17/18947 Status: Signed Prototype Special Build: DORON Diallo (Scrap Sorter) 10/17/18 09 Discharge Planning Evaluation Admitting Diagnosis (SOB) Readmission Other (comment) (Last admit 08/20/18) Living Arrangements Alone Support Systems Family members;Friends/neighbors Type of Residence Private residence House type Apartment Independent with ADL's Yes Independent with Mobility Yes Home Care Services No Caregiver after Discharge No Mental Status Oriented Prior functional status (Independent) Power of Folder And Notcher No Resources Financial concerns No Transportation issues No Patient/Family concerns No Prescription Plan Yes Name of Pharmacy ([facility] in [place]) Previous home health equipment No Anticipated Disposition Facility Type Home DORON CM met with pt and discussed discharge planning. Pt is a 23 y.o., female admitted for s hortness of breath. Pt resides alone in an apartment at [address], [place] [address]. Pt reported that she has neighbor and friend support. Pt's mother, Thania cheung can be reached at and sister, Saundra can be reached at . Pt reported being independent with ADL's,, IADL's and mobility prior to this admission. Pt denied previous outpatient OT/PT services, home care services and home O2 prior to this admission. Pt reported that she received dialysis from [facility] [place] on MWF prior to this admission . [...] 10/17/18743 Date of Service: 10/17/18743 Status: Signed Prototype Special Build: Camilla Moody RPH (Pharmacist) Clinical Pharmacy Note: [...] 0747 Date of Service: 10/17/18716 Status: Signed Prototype Special Build: Gerber Pearson MD (Physician) [facility]: Hospitalist Progress Note Hospital Day: [...] with dyspnea Patient was recently discharged from [facility] on 08/23/2018. For full note, please see discha rge summary from hospitalist. In summary, the patient was admitted for noncardiogenic pulmo nary edema after thoracentesis. At that point, prior to admission, she was [facility] in [place] on 08/21 where she underwent right th [...] the case over the phone with patient's saturator operator Dr. Mahmood, recommends medi oly management [...] creatinine 14, BUN 90 -History of a Gardners Schnlein purpura -Last hemodialysis approximately 2 weeks [...] [address] | | | | | | [place] [address] | | | | | | [phone] | | | | | | | [...] | | | | | performed at [facility], [address] | | | | | | [facility], | | | | | | [place] [address] | | | | + + + [...] CHEST 1 VIEW (10/17/2018); CHEST TWO VIEWS 48100 | | | (10/17/2018); FINDINGS: Compared to [...] VIEW | | (10/17/2018); CHEST TWO VIEWS 68629 (10/17/2018); | | FINDINGS: | | Compared [...] PA-C. I, Dr. | | | Colten Hutchnis, supervised the procedure and was present for [...] pleural space is punctured with an 5 Libyan GoFishesis catheter. | | | Fluid is aspirated [...] pleural space is punctured with an 5 Libyan Yueh | | SmartRecruitersesis catheter. Fluid is aspirated without complication. The [...] | | | | | | at [facility], [address] | | | | | | [facility], | | | | | | [place] [address] | | | | | |Testing performed at [facility], [address] [place] [address] | | | | | | | [...] EXTERNAL | | | | performed at [facility], [address] | | LAB | | | | [address], | | | | | | [place] [address] | | | | + + + [...] | | | | | performed at [facility], [address] | | | | | | [facility], | | | | | | [place] [address] | | | | + + + [...] | | [facility];[address] [place] [address] | | | | | | [facility];[place] [address] | | | | + + + [...] | | performed at [facility];[address] | | LAB | | | | [address];[place], [place] | | | | | | [address] | | | | + + + [...] | | [facility];[address] [place] [address] | | | | | | [facility];[place] [address] | | | | + + + [...] | | performed at [facility];[address] | | LAB | | | | [facility], [place] | | | | | | [address] | | | | + + + [...] | | performed at [facility];[address] | | | | | | [address];[place], [place] | | | | | | [address] | | | | + + + [...] | | [facility];[address] [place] [address] | | | | | | Bl;[place] [address] | | | | + + + [...] | | [facility];[address] [facility] | | | | | | [facility];[place] [address] | | | | + + + [...] | | LAB | | | | [facility];[address] [facility] | | | | | | Blvd;[place] [address] | | | | + + + [...]
--- OUTSIDE RECORDS SUMMARY | ~2019-03-12 | XMS | Encounter Summary ---
Demographics + + + | Address | [address] | | | [place] [address] | + + + | Home Phone [...] | | | | | [place] [address] | | + + + + + | Thania Mallory | ECON | [address] | | | | | [place] [address] | | + + + + + | Deidra Weldon | ECON | [address] | | | | | [place] | | | | | [address] | | + + + + + Care Team Providers + +------+ + | Care Rivet Bucker Name | Role | Phone | + [...] Rd | | | | | | [place], [place] | | | | | | [address] | | | +--------+ + + + [...] Denise | | | | | | [place], [place] | | | | | | [address] | | | | | | [phone] | | | | | | | | +--------+ + + + + documented as of this encounter Visit Diagnoses Not on [facility]"
--- OUTSIDE RECORDS SUMMARY | ~2019-03-12 | XMS | Encounter Summary ---
Demographics + + + | Address | [address] | | | [place] [address] | + + + | Home Phone [...] | | | | | [place] [address] | | + + + + + | Thania Mallory | ECON | [address] | | | | | [place] [address] | | + + + + + | Deidra Weldon | ECON | [address] | | | | | [place] | | | | | [address] | | + + + + + Care Team Providers + +------+ + | Care Gameplay Engineer Name | Role | Phone | [...] | | | [address] | [facility] | | | | | [address] [place], | [place], [place] | | | | | [place] [address] | [address] | | | | | [phone] | | | +--------+ + + + [...] Denise | | | | | | [place] | | | | | | [address] | | | | | | [phone] | | | | | | | | +--------+ + + + + documented as of this encounter Visit Diagnoses Not on filedocumented in this encounter"
--- OUTSIDE RECORDS SUMMARY | ~2019-03-12 | XMS | Encounter Summary ---
Demographics + + + | Address | [address] | | | [place] [address] | + + + | Home Phone [...] + + | Author | [facility] | | | and [place] | + + + | Organization | [facility] | [...] Team Providers + +------+ + | Care Intervention Specialist Name | Role | Phone | [...] | Encounter | JOY | MD Emanuel [address] | | | | | [address] | [facility] | | | | | [address] | [place], [place] | | | | | [place], [place] | [address] | | | | | [address] | [phone] | | | | | [phone] | | | +--------+ + + + [...] [address] | | | | | | [place] [address] | | | | | | [phone] | | | | | | | | +--------+---------+ + + + documented as of this encounter Visit Diagnoses Not on filedocumented in this encounter"
--- OUTSIDE RECORDS SUMMARY | ~2019-03-12 | XMS | Encounter Summary ---
Demographics + + + | Address | [address] | | | [place] [address] | + + + | Home Phone [...] | Author | [facility] | | | and [place] | + + + | Organization | [facility] [...] Team Providers + +------+ + | Care Drupal Php Developer Name | Role | Phone [...] | Encounter | JOY | MD Emanuel [address] | | | | | [address] | [facility] | | | | | [address] | [place], [place] | | | | | [place] | [address] | | | | | [address] | [phone] | | | | | [phone] | | | +--------+ + + + [...] [address] | | | | | | [place] [address] | | | | | | [phone] | | | | | | | | +--------+---------+ + + + documented as of this encounter Visit Diagnoses Not on filedocumented in this encounter"
--- OUTSIDE RECORDS SUMMARY | ~2019-03-12 | XMS | Encounter Summary ---
Demographics + + + | Address | [address] | | | [place] [address] | + + + | Home Phone [...] [facility] | | | and [place] | + + + | Organization | [facility] | | | [...] Providers + +------+ + | Care [employer] Name | Role | Phone | [...] | | KIDNEY TRANSPLANT | [address] [place], | | | | | [address] [place] | [place] [address] | | | | | [address] [place], [place] | [phone] | | | | | [address] | | | | | | [phone] | | | +--------+ + + + [...] [place] | | | | | | [place] [address] | | | | | | [phone] | | | | | | | | +--------+---------+ + + + documented as of this encounter Visit Diagnoses Not on filedocumented in this encounter"
--- OUTSIDE RECORDS SUMMARY | ~2019-03-12 | XMS | Encounter Summary ---
Demographics + + + | Address | [address] | | | [place] [address] | + + + | Home Phone [...] | | | | | [place] [address] | | + + + + + | Thania Mallory | ECON | [address] | | | | | [place] [address] | | + + + + + | Deidra Weldon | ECON | [address] | | | | | [place] | | | | | [address] | | + + + + + Care Team Providers + +------+ + | Care Vice President Payment Name | Role | Phone | + [...] with | | | | Caro Chan [place], | [place], [place] | pt's dad) | | | | [place] [address] | [address] | | | | | [phone] | | | +--------+ + + + [...] [facility] | | | | | | [address] | | | | | | [phone] | | | | | | | | +--------+ + + + + documented as of this encounter Visit Diagnoses Not on filedocumented in this encounter"
--- OUTSIDE RECORDS SUMMARY | ~2019-03-12 | XMS | Encounter Summary ---
Demographics + + + | Address | [address] | | | [place] [address] | + + + | Home Phone [...] | Author | [facility] | | | and [place] | + + + | Organization | [facility] [...] Team Providers + +------+ + | Care Tensile Tester Name | Role | Phone | [...] NEPHROLOGY [address] | M, DO [address] [place] | | | | | [address] | [place] | | | | | [place], [place] | [place], [place] | | | | | [address] | [address] | | | | | [phone] | | | +--------+ + + + [...] repeatedly declines. The entire dialysis team including group worker have had mult iple conversations with [...] attempt to continue to make efforts to field counsel her about lifestyle modification an d [...] [address] | | | | | | [place] [address] | | | | | | [phone] | | | | | | | | +--------+---------+ + + + documented as of this encounter Visit Diagnoses Not on filedocumented in this encounter"
--- OUTSIDE RECORDS SUMMARY | ~2019-03-12 | XMS | Encounter Summary ---
Demographics + + + | Address | [address] | | | [place] [address] | + + + | Home Phone [...] | Author | [facility] | | | and Josephana | + + + | Organization | [facility] | | [...] Team Providers + +------+ + | Care Central Office Worker Name | Role | Phone | + +------+ + PCP | Unavailable | + +------+ + Encounter Details +--------+ + + + + | Date | Type | Department | Care Team | Description | +--------+ + + + + | 06/24/ | Hospital | [facility] | Rik Simon MD | | | 2015 | Encounter | [facility] | [address] | | | | | [address] | [place], [place] | | | | | [place], [place] | [address] | | | | | [address] | [phone] | | | | | [phone] | | | +--------+ + + + [...] 06/24/141340 Date of Service: 06/24/141340 Status: Signed Calendering Machine Operator: Merlin Carter RPH (Pharmacist) Clinical Pharmacy [...] - 1.00 mg/dL Final Testing performed at [facility];[address];[place] [address] CREATININE: 7.55 mg/dL ABNORMAL (06/24/14 1045) Estimated creatinine clearance - 14.7 mL/min Pharmacy dosing for renal function per Dr. Simon. Currently, there are no medications needing to be adjusted. Pharmacy will continue to monit or for changes in medication orders and in renal function and adjust accordingly. Merlin Carter [facility] 06/24/2014 1:41 PM docume nted in this [...] | | | | | | [place] [address] | | | | | | [phone] | | | | | | | [...] LAB | | | | Blvd;[place] [address] | | | | + + + + + + | Antibody | NEGATIVE | | EXTERNAL | | | Screen | | | LAB | | + + + + + + | Antibody | Testing performed at | | EXTERNAL | | | Screen | [facility];[address] | | LAB | | | | Blvd;[place] [address] | | | | + + + + + + | BB BAND | [id number] | | EXTERNAL | | | | | | LAB | | + + + + + + | BB BAND | Testing performed at | | EXTERNAL | | | | [facility];[address] | | LAB | | | | Blvd;[place] [address] | | | | + + + [...] performed at [facility] | | | | | | [facility];[place], [place] | | | | | | [address] | | | | + + + [...] | | | QUALITATIVE | performed at [facility] | | LAB | | | | [address];[place], [place] | | | | | | [address] | | | | + + + [...] EXTERNAL | | | | performed at [facility];[address] | mmol/L | LAB | | | | [address];[place], [place] | | | | | | [address] | | | | + + + + + + | K | 4.3Comment: Testing | 3.5 - 4.9 | EXTERNAL | | | | performed at [facility];[address] | mmol/L | LAB | | | | [address];[place] | | | | | | [address] | | | | + + + + + + | Cl | 101Comment: Testing | 99 - 109 mmol/L | EXTERNAL | | | | performed at [facility];[address] | | LAB | | | | [address];[place] | | | | | | [address] | | | | + + + + + + | CO2 | 23Comment: Testing | 23 - 32 mmol/L | EXTERNAL | | | | performed at [facility];[address] | | LAB | | | | [address];[place] | | | | | | [address] | | | | + + + + + + | Anion Gap | 16Comment: Testing | 5 - 20 mmol/L | EXTERNAL | | | | performed at [facility];[address] | | LAB | | | | [address];[place] | | | | | | [address] | | | | + + + + + + | Glucose, | 84Comment: Testing | 65 - 99 mg/dL | EXTERNAL | | | Fasting | performed at [facility];[address] | | LAB | | | | [address];[place] | | | | | | [address] | | | | + + + + + + | BUN | 40 (H)Comment: Testing | 8 - 25 mg/dL | EXTERNAL | | | | performed at [facility];[address] | | LAB | | | | [address];[place] | | | | | | [address] | | | | + + + + + + | Creatinine | 7.55 (H)Comment: Testing | 0.50 - 1.00 | EXTERNAL | | | | performed at [facility];888 | mg/dL | LAB | | | | [address];[place] | | | | | | [address] | | | | + + + + + + | BUN/Creatin | 5Comment: Testing | | EXTERNAL | | | ine Ratio | performed at [facility];[address] | | LAB | | | | [address];[place] | | | | | | [address] | | | | + + + + + + | Calcium | 9.8Comment: Testing | 8.5 - 10.5 | EXTERNAL | | | | performed at [facility];888 | mg/dL | LAB | | | | [address];[place] | | | | | | [address] | | | | + + + [...] – [facility];[address] | | | | | | [address];[place] | | | | | | [address] | | | | + + + [...]
--- OUTSIDE RECORDS SUMMARY | ~2019-03-12 | XMS | Encounter Summary ---
Demographics + + + | Address | [address] | | | [place] [address] | + + + | Home Phone [...] | Author | [facility] | | | and Josephana | + + + | Organization | [facility] | [...] Providers + +------+ + | Care Mine Engineering Manager Name | Role | Phone | [...] | 03/05/ | Clinical | [facility] | Blake Chavarria | End stage renal | | 2013 | Support | SURGERY [address] | MD Antonieta, FACS [address] | failure on dialysis | | | | [place], [place] | [facility] | ([facility]) (Primary Dx) | | | | [address] | [place] [address] | | | | | [phone] | [phone] | | | | | | | [...] [place] | | | | | | [place] [address] | | | | | | [phone] | | | | | | | | +--------+---------+ + + + documented as of this encounter Visit Diagnoses + + | Diagnosis | + + | End stage renal failure on dialysis (HCC) - Primary End stage renal disease | + + documented in this encounter"
--- OUTSIDE RECORDS SUMMARY | ~2019-03-12 | XMS | Encounter Summary ---
Demographics + + + | Address | [address] | | | [place] [address] | + + + | Home Phone [...] | | | | | [place] [address] | | + + + + + | Thania Mallory | ECON | [address] | | | | | [place] [address] | | + + + + + | Deidra Weldon | ECON | [address] | | | | | [place] | | | | | [address] | | + + + + + Care Team Providers + +------+ + | Care Milling Machine Operator Gear Name | Role | Phone | + [...] | | | | Hospital | [facility] | | | | | | [address] | [place] | | | | | | [address] | [place], [place] | | | | | | [place] | [address] | | | | | | [place] | Phone: | | | | | | [address] | [phone] | | | | | | Phone: | | | | | | | [phone] | | | | | | | Fax: | | | | | | | [phone] | | +--------+--------+ + + + + Encounter Details +--------+---------+ + + + | Date | Type | Department | Care Team | Description | +--------+---------+ + + + | 08/17/ | Office | Specialty Clinics | Sudhakar Joy | Anemia of chronic | | 2016 | Visit | at [facility] [address] | DMD [address] | kidney failure, | | | | [place] Mailcode: | [address] | stage 5 (HCC) | | | | [facility] [place] | [place], [place] | (Primary Dx); HSP | | | | [place], [place] | [address] | (Jada-Schmanueln | | | | [address] | [phone] | purpura) nephritis | | | | [phone] | | | +--------+---------+ + + + [...] good. She has moved into a new [facility]. She has collected enough money to [...] [address] Mail code [facility] [place], [place] [address] documented in this encounter Plan of Treatment +--------+ + + + + | Date | Type | Specialty | Care Team | Description | +--------+ + + + + | 05/04/ | Hospital | Adult Acute Care | El Starr MD | | | 2022 | Encounter | | [address] | | | | | | [place], [place] | | | | | | [address] | | | | | | [phone] | | | | | | | [...]
--- OUTSIDE RECORDS SUMMARY | ~2019-03-12 | XMS | Encounter Summary ---
Demographics + + + | Address | [address] | | | [place] [address] | + + + | Home Phone [...] | | | | | [place] [address] | | + + + + + | Thania Mallory | ECON | [address] | | | | | [place] [address] | | + + + + + | Deidra Weldon | ECON | [address] | | | | | [place] | | | | | [address] | | + + + + + Care Team Providers + +------+ + | Care Airfield Services Officer Name | Role | Phone | [...] | | | [address] | [place] | | | | | [place], | [place], [place] | | | | | [place] [address] | [address] | | | | | [phone] | [phone] | | | | | | | [...] Denise | | | | | | [place], [place] | | | | | | [address] | | | | | | [phone] | | | | | | | | +--------+ + + + + documented as of this encounter Visit Diagnoses Not on filedocumented in this encounter"
--- OUTSIDE RECORDS SUMMARY | ~2019-03-12 | XMS | Encounter Summary ---
Demographics + + + | Address | [address] | | | [place] [address] | + + + | Home Phone [...] | | | | | [place] [address] | | + + + + + | Thania Mallory | ECON | [address] | | | | | [place] [address] | | + + + + + | Deidra Weldon | ECON | [address] | | | | | [place] | | | | | [address] | | + + + + + Care Team Providers + +------+ + | Care Director Of Sustainable Design Name | Role | Phone | + [...] | Nephrology at | MD Emanuel [address] [facility] | | | | | [place] | [facility] | | | | | [facility] | [place], [place] | | | | | [address] [facility] | [address] | | | | | Mailcode: [facility] | [phone] | | | | | [place] | | | | | | [place], [place] | | | | | | [address] | | | | | | [phone] | | | +--------+ + + + [...] Denise | | | | | | [place] | | | | | | [address] | | | | | | [phone] | | | | | | | | +--------+ + + + + documented as of this encounter Visit Diagnoses Not on filedocumented in this encounter"
--- OUTSIDE RECORDS SUMMARY | ~2019-03-12 | XMS | Encounter Summary ---
Demographics + + + | Address | [address] | | | [place] [address] | + + + | Home Phone [...] | | | | | [place] [address] | | + + + + + | Thania Mallory | ECON | [address] | | | | | [place] [address] | | + + + + + | Deidra Weldon | ECON | [address] | | | | | [place] | | | | | [address] | | + + + + + Care Team Providers + +------+ + | Care Meat Inspector Name | Role | Phone | [...] | | | [place], | [place] [address] | | | | | [place] [address] | [phone] | | | | | | | [...] Denise | | | | | | [place], [place] | | | | | | [address] | | | | | | [phone] | | | | | | | [...] [facility] - | [address] | [place] [address] | | | IMMUNOGENETICS/TRANS | [address] | | | | [facility] | | | | + + + + + documented in this encounter Visit Diagnoses Not on filedocumented in this encounter"
--- OUTSIDE RECORDS SUMMARY | ~2019-03-12 | XMS | Encounter Summary ---
Demographics + + + | Address | [address] | | | [place] [address] | + + + | Home Phone [...] | Author | [facility] | | | and Josephana | + + + | Organization | [facility] [...] Providers + +------+ + | Care Elementary Tutor Name | Role | Phone | [...] | Encounter | JOY | MD Emanuel [address] | | | | | [address] | [facility] | | | | | [address] | [place], [place] | | | | | [place], [place] | [address] | | | | | [address] | [phone] | | | | | [phone] | | | +--------+ + + + [...] [place] | | | | | | [place] [address] | | | | | | [phone] | | | | | | | | +--------+---------+ + + + documented as of this encounter Visit Diagnoses Not on filedocumented in this encounter"
--- OUTSIDE RECORDS SUMMARY | ~2019-03-12 | XMS | Encounter Summary ---
Demographics + + + | Address | [address] | | | [place] [address] | + + + | Home Phone [...] Author | [facility] | | | and Josephana | + + + | Organization | [facility] | [...] + +------+ + | Care Underwriting Support Manager Name | Role | Phone [...] | | | [address] [place], | | | | [address] | [place] [address] | | | | | [place], [place] | [phone] | | | | | [address] | | | | | | [phone] | | | +--------+ + + + [...] | | | | | | [place] [address] | | | | | | [phone] | | | | | | | | +--------+---------+ + + + documented as of this encounter Visit Diagnoses Not on filedocumented in this encounter"
--- OUTSIDE RECORDS SUMMARY | ~2019-03-12 | XMS | Encounter Summary ---
Demographics + + + | Address | [address] | | | [place] [address] | + + + | Home Phone [...] | | | | | [place] [address] | | + + + + + | Thania Mallory | ECON | [address] | | | | | [place] [address] | | + + + + + | Deidra Weldon | ECON | [address] | | | | | [place] | | | | | [address] | | + + + + + Care Team Providers + +------+ + | Care Postal Service Mail Processor Name | Role | Phone | [...] | | | | | [address] [facility] | [facility] | | | | | [facility], | [place], [place] | | | | | [place] [address] | [address] | | | | | [phone] | | | +--------+ + + + [...] [place] | | | | | | [address] | | | | | | [phone] | | | | | | | | +--------+ + + + + documented as of this encounter Visit Diagnoses Not on filedocumented in this encounter"
--- OUTSIDE RECORDS SUMMARY | ~2019-03-12 | XMS | Encounter Summary ---
Demographics + + + | Address | [address] | | | [place] [address] | + + + | Home Phone [...] Author | [facility] | | | and Josephana | + + + | Organization | [facility] | [...] Team Providers + +------+ + | Care Knee Bolter Name | Role | Phone | + [...] NEPHROLOGY [address] | MD [address] | (Asymptomatic) | | | | [address] | [address] [place] | | | | | [place], [place] | [place] [address] | | | | | [address] | [phone] | | | | | [phone] | | | +--------+ + + + [...] e-faxed to Jamil Levi in Dialysis [facility], Lianna Joy [facility] pediatric nephrology at [facility] on 02/07/14. Daniela Ibarra MD - 01/24/2014 2:48 PM PSTFormatting of this note might be different fr om the original. Comprehensive Dialysis Monthly Note Date of visit: 01/24/2014 Dialysis Clinic: [facility] [place] Mode of dialysis: Hemodialysis Dialysis prescription: MWF, [...] 2012. Access: R chest catheter. Re-referred to [facility] transplant in Oct 2013 by 3d animator. Peritonitis, dialysis-associated (HCC) 07/29/2013 Note Last Updated: 07/29/2013 Due to MSSA. Had tunneled infection as well. PD catheter removed in July 2013. On Keflex till 08/01/13. History of Henoch-Schonlein purpura Note Last Updated: 07/29/2013 Diagnosed at age 10[address] Joy, 3d animator. Anemia in ESRD (end-stage renal disease) (HCC) [...] ed for acceptable candidacy. Will f/u with [facility] Transplant Team. cc: Lucille Griffin [facility] Dr. Lianna Joy, [facility] Pediatric Nephrology [facility] Renal transplant documented in [...] [place] | | | | | | [place] [address] | | | | | | [phone] | | | | | | | [...]
--- OUTSIDE RECORDS SUMMARY | ~2019-03-12 | XMS | Encounter Summary ---
Demographics + + + | Address | [address] | | | [place] [address] | + + + | Home Phone [...] | | | | | [place] [address] | | + + + + + | Thania Mallory | ECON | [address] | | | | | [place] [address] | | + + + + + | Deidra Weldon | ECON | [address] | | | | | [place] | | | | | [address] | | + + + + + Care Team Providers + +------+ + | Care Child Life Assistant Name | Role | Phone | [...] | | | [address] [place] [place], | [place], [place] | | | | | [place] [address] | [address] | | | | | [phone] | | | +--------+ + + + [...] [place] | | | | | | [address] | | | | | | [phone] | | | | | | | | +--------+ + + + + documented as of this encounter Visit Diagnoses Not on filedocumented in this encounter"
--- OUTSIDE RECORDS SUMMARY | ~2019-03-12 | XMS | Encounter Summary ---
Demographics + + + | Address | [address] | | | [place] [address] | + + + | Home Phone [...] Providers + +------+ + | Care Inspector Shells Name | Role | Phone | + [...] | | stage renal | [address] | [address] [place] [address] | | | | | disease) | [address] | [place] | | | | | ([facility]) | [address] | [address] [place] | | | | | Anemia in | [place], [place] | [place] | | | | | ESRD | [address] | [address] Phone: | | | | | (end-stage | Phone: | [phone] | | | | | renal | [phone] | Fax: | | | | | disease) | Fax: | [phone] | | | | | ([facility]) | [phone] | | | | | | Procedures [...] | | [address] | [place], [address] | disease) ([facility]) | | | | [place], [place] | [place] [facility], [place] | (Primary Dx); ESRD | | | | [address] | [address] | (end stage renal | | | | [phone] | | disease) ([facility]) | +--------+ + + + [...] Hypertension--from review of her treatment data in [facility] EHR, BP appears stable at her [...] Will recheck her iron profile next [facility]. Plan: 1. Again, I counseled Dara [...] Will recheck her in 2 weeks. CC: Horace Fina Joy MD, Renal Transplant Clinic, [facility] signed by Jorje Camp DO at [...] [place] | | | | | | [place] [address] | | | | | | [phone] | | | | | | | [...]
--- OUTSIDE RECORDS SUMMARY | ~2019-03-12 | XMS | Encounter Summary ---
Demographics + + + | Address | [address] | | | [place] [address] | + + + | Home Phone [...] | | | | | [place] [address] | | + + + + + | Thania Mallory | ECON | [address] | | | | | [place] [address] | | + + + + + | Deidra Weldon | ECON | [address] | | | | | [place] | | | | | [address] | | + + + + + Care Team Providers + +------+ + | Care Director Of Teaching And Learning Name | Role | Phone | + [...] ) | | | | [address] | [facility] | | | | | Park [facility], | [place], [place] | | | | | [place] [address] | [address] | | | | | [phone] | | | +--------+ + + + [...] [place] | | | | | | [place] | | | | | | [address] | | | | | | [phone] | | | | | | | | +--------+ + + + + documented as of this encounter Visit Diagnoses Not on filedocumented in this encounter"
--- OUTSIDE RECORDS SUMMARY | ~2019-03-12 | XMS | Encounter Summary ---
Demographics + + + | Address | [address] | | | [place] [address] | + + + | Home Phone [...] | | | | | [place] [address] | | + + + + + | Thania Mallory | ECON | [address] | | | | | [place] [address] | | + + + + + | Deidra Weldon | ECON | [address] | | | | | [place] | | | | | [address] | | + + + + + Care Team Providers + +------+ + | Care Layout Inspector Name | Role | Phone | [...] | | | | [address] [place] | [facility] | | | | | [place], | [place], [place] | | | | | [place] [address] | [address] | | | | | [phone] | | | +--------+ + + + [...] Denise | | | | | | [place] | | | | | | [address] | | | | | | [phone] | | | | | | | | +--------+ + + + + documented as of this encounter Visit Diagnoses Not on filedocumented in this encounter"
--- OUTSIDE RECORDS SUMMARY | ~2019-03-12 | XMS | Encounter Summary ---
Demographics + + + | Address | [address] | | | [place] [address] | + + + | Home Phone [...] Providers + +------+ + | Care Manager Clinical Research Name | Role | Phone | [...] NEPHROLOGY [address] | M, DO [address] | | | | | [address] | [place], [address] | | | | | [place], [place] | [place], [place] | | | | | [address] | [address] | | | | | [phone] | | | +--------+ + + + [...] [facility], Sudhakar Joy MD at [facility], Doyle Diaz MD (fx: [phone]) on 08/31/15.Electronically signed by Marilyn Palumbo at [...] with an AVF venous stenosis, and had FORENSIC LOCKSMITH with an Alysia Castillo last week. Apparently [...] uated for a possible renal allograft at [facility].honestly, given her recent suboptimal compliance with fluid gains, hyperphosphatemia, and missed treatments I think anitha quarles would be at high risk for graft loss from noncompliance? Will attempt to get in touch wit h Dr. Joy, Pediatric Nephrology. 4. Will recheck her in one week. I appreciate Dr. Diaz's help with her recent fistulogram . CC: Lima Fina Joy M.D., Pediatric Nephrology, [facility] Doyle Diaz M.D., IR, [facility] [...] [place] | | | | | | [place] [address] | | | | | | [phone] | | | | | | | | +--------+---------+ + + + documented as of this encounter Visit Diagnoses + + | Diagnosis | + + | ESRD (end stage renal disease) (HCC) - Primary End stage renal disease | + + documented in this encounter"
--- OUTSIDE RECORDS SUMMARY | ~2019-03-12 | XMS | Encounter Summary ---
Demographics + + + | Address | [address] | | | [place] [address] | + + + | Home Phone [...] | Author | [facility] | | | and Josephana | + + + | Organization | [facility] [...] Providers + +------+ + | Care Human Capital Manager Name | Role | Phone | [...] | Nephrology | Diagnoses | Joy, | [place], | | | | | ESRD (end | Sudhakar Castellanos, | Jorje Obrien DO | | | | | stage renal | [address] | [address] [place] [address] | | | | | disease) | [address] | [place] [address] | | | | | (HCC) | [address] | [address] [place] | | | | | Anemia in | [place], [place] | [place], [place] | | | | | ESRD | [address] | [address] Phone: | | | | | (end-stage | Phone: | [phone] | | | | | renal | [phone] | Fax: | | | | | disease) | Fax: | [phone] | | | | | ([facility]) | [phone] | | | | | | Procedures [...] | | [address] | [place], [address] | (Primary Dx) | | | | [place], [place] | [place], [place] | | | | | [address] | [address] | | | | | [phone] | | | +--------+ + + + [...] to fall on the Parsab[place], IV? : [place] Fina Alonso MD, PhD documented in thi [...] [place] | | | | | | [place] [address] | | | | | | [phone] | | | | | | | | +--------+---------+ + + + documented as of this encounter Visit Diagnoses + + | Diagnosis | + + | ESRD (end stage renal disease) (HCC) - Primary End stage renal disease | + + documented in this encounter
--- OUTSIDE RECORDS SUMMARY | ~2019-03-12 | XMS | Encounter Summary ---
Demographics + + + | Address | [address] | | | [place] [address] | + + + | Home Phone [...] | Author | [facility] | | | and Josephana | + + + | Organization | [facility] | | [...] Team Providers + +------+ + | Care Middle School Guidance Counselor Name | Role | Phone | [...] | | KIDNEY TRANSPLANT | [address], | | | | | [address] | [place] [address] | | | | | [address] [place] [address] | [phone] | | | | | [address] | | | | | | [phone] | | | +--------+ + + + [...] [place] | | | | | | [place] [address] | | | | | | [phone] | | | | | | | | +--------+---------+ + + + documented as of this encounter Visit Diagnoses Not on filedocumented in this encounter"
--- OUTSIDE RECORDS SUMMARY | ~2019-03-12 | XMS | Encounter Summary ---
Demographics + + + | Address | [address] | | | [place] [address] | + + + | Home Phone [...] + | Author | [facility] | | | and Josephana | + + + | Organization | [facility] | [...] Providers + +------+ + | Care Agriculture Intern Name | Role | Phone | [...] [place] | | | | | | [address] | | | | | | [phone] | | | +--------+ + + + [...] | | | | | | [place] [address] | | | | | | [phone] | | | | | | | | +--------+---------+ + + + documented as of this encounter Visit Diagnoses Not on filedocumented in this encounter"
--- OUTSIDE RECORDS SUMMARY | ~2019-03-12 | XMS | Encounter Summary ---
Demographics + + + | Address | [address] | | | [place] [address] | + + + | Home Phone [...] | | | | | [place] [address] | | + + + + + | Thania Mallory | ECON | [address] | | | | | [place] [address] | | + + + + + | Deidra Weldon | ECON | [address] | | | | | [place] | | | | | [address] | | + + + + + Care Team Providers + +------+ + | Care Concrete Finisher Name | Role | Phone | [...] | | | | Keven Drew | [place], [place] | | | | | | [place] | [address] | | | | | | [place] | Phone: | | | | | | [address] | [phone] | | | | | | Phone: | | | | | | | [phone] | | | | | | | Fax: | | | | | | | [phone] | | +--------+--------+ + + + + Encounter Details +--------+---------+ + + + | Date | Type | Department | Care Team | Description | +--------+---------+ + + + | 11/16/ | Office | Specialty Clinics | Sudhakar Joy | Allergic purpura- | | 2015 | Visit | at [facility] [address] | D, MD [address] [facility] | MEDICARE 2727 | | | | [place] Mailcode: | [address] | (Primary Dx); [facility] | | | | [facility] [address] | [place], [place] | ([place] | | | | [place], [place] | [address] | purpura) nephritis; | | | | [address] | [phone] | Anemia of chronic | | | | [phone] | | kidney failure, | | | | | Rtx, [address] | unspecified stage | | | | | [address] | | | | | | Road [place], [place] | | | | | | [address] | | +--------+---------+ + + + Social [...] soon. Have your friend call Brittney about [phone] Sudhakar Joy MD documented in this encounter [...] Services [address] Mail code [facility] [place], [place] [id number] documented in this encounter Plan of Treatment +--------+ + + + + | Date | Type | Specialty | Care Team | Description | +--------+ + + + + | 05/04/ | Hospital | Adult Acute Care | El Starr MD | | | 2022 | Encounter | | [address] | | | | | | [place], [place] | | | | | | [address] | | | | | | [phone] | | | | | | | [...]
--- OUTSIDE RECORDS SUMMARY | ~2019-03-12 | XMS | Encounter Summary ---
Demographics + + + | Address | [address] | | | [place] [address] | + + + | Home Phone [...] | Author | [facility] | | | and Josephana | + + + | Organization | [facility] | [...] Team Providers + +------+ + | Care Clothes Designer Name | Role | Phone | [...] | | [address] | [place] | (Primary Dx) | | | | [place], [place] | [place], [place] | | | | | [address] | [address] | | | | | [phone] | | | +--------+ + + + [...] [place] | | | | | | [place] [address] | | | | | | [phone] | | | | | | | | +--------+---------+ + + + documented as of this encounter Visit Diagnoses + + | Diagnosis | + + | ESRD (end stage renal disease) (HCC) - Primary End stage renal disease | + + documented in this encounter"
--- OUTSIDE RECORDS SUMMARY | ~2019-03-12 | XMS | Encounter Summary ---
Demographics + + + | Address | [address] | | | [place] [address] | + + + | Home Phone [...] | | | | | [place] [address] | | + + + + + | Thania Mallory | ECON | [address] | | | | | [place] [address] | | + + + + + | Deidra Weldon | ECON | [address] | | | | | [place] | | | | | [address] | | + + + + + Care Team Providers + +------+ + | Care Armored Car Guard And Driver Name | Role | Phone | [...] | Update (Evaluation | | | | [address] | [address] | Scheduled) | | | | [place], | [place], [place] | | | | | [place] [address] | [address] | | | | | [phone] | [phone] | | | | | | | [...] | | | | | | [place] | | | | | | [address] | | | | | | [phone] | | | | | | | | +--------+ + + + + documented as of this encounter Visit Diagnoses Not on filedocumented in this encounter"
--- OUTSIDE RECORDS SUMMARY | ~2019-03-12 | XMS | Encounter Summary ---
Demographics + + + | Address | [address] | | | [place] [address] | + + + | Home Phone [...] + | Author | [facility] | | | and Josephana | + + + | Organization | [facility] | [...] Team Providers + +------+ + | Care Casing Operator Name | Role | Phone | [...] RN | | | | | [address] [facility] [address] | | | | | | [place] | | | | | | [address] | | | | | | [phone] | | | +--------+ + + + [...] [place] | | | | | | [place] [address] | | | | | | [phone] | | | | | | | | +--------+---------+ + + + documented as of this encounter Visit Diagnoses Not on filedocumented in this encounter"
--- OUTSIDE RECORDS SUMMARY | ~2019-03-12 | XMS | Encounter Summary ---
Demographics + + + | Address | [address] | | | [place] [address] | + + + | Home Phone [...] | Author | [facility] | | | and Josephana | + + + | Organization | [facility] | | [...] | | | DEPART[address] [place] | | | | [address] | [place] [address] | | | | | [place], [place] | [phone] | | | | | [address] | | | | | | [phone] | | | +--------+ + + + [...] [place] | | | | | | [place] [address] | | | | | | [phone] | | | | | | | | +--------+---------+ + + + documented as of this encounter Visit Diagnoses Not on filedocumented in this encounter"
--- OUTSIDE RECORDS SUMMARY | ~2019-03-12 | XMS | Encounter Summary ---
Demographics + + + | Address | [address] | | | [place] [address] | + + + | Home Phone [...] Author | [facility] | | | and Josephana | + + + | Organization | [facility] | | [...] + +------+ + | Care Parts Sales Associate Name | Role | Phone [...] | | [address] | [address] | | | | | [place], [place] | [place], [place] | | | | | [address] | [address] | | | | | [phone] | | | +--------+ + + + [...] [address] | | | | | | [place] [address] | | | | | | [phone] | | | | | | | | +--------+---------+ + + + documented as of this encounter Visit Diagnoses Not on filedocumented in this encounter"
--- OUTSIDE RECORDS SUMMARY | ~2019-03-12 | XMS | Encounter Summary ---
Demographics + + + | Address | [address] | | | [place] [address] | + + + | Home Phone [...] | | | | | [place] [address] | | + + + + + | Thania Mallory | ECON | [address] | | | | | [place] [address] | | + + + + + | Deidra Weldon | ECON | [address] | | | | | [place] | | | | | [address] | | + + + + + Care Team Providers + +------+ + | Care Silk Presser Name | Role | Phone | [...] | 2013 | | Transplant Services | SEED MILL SUPERINTENDENT [place], [place] | Update | | | | [address] | [address] | | | | | [address], | | | | | | [place] [address] | | | | | | [phone] | | | +--------+ + + + [...] Denise | | | | | | [place], [place] | | | | | | [address] | | | | | | [phone] | | | | | | | | +--------+ + + + + documented as of this encounter Visit Diagnoses Not on filedocumented in this encounter"
--- OUTSIDE RECORDS SUMMARY | ~2019-03-12 | XMS | Encounter Summary ---
Demographics + + + | Address | [address] | | | [place] [address] | + + + | Home Phone [...] Author | [facility] | | | and Josephana | + + + | Organization | [facility] | | | and Josephana | + + + | Address | Unknown | + + + | Phone | Unavailable | + + + Support + + +---------+ + | Name | Relationship | Address | Phone | + + +---------+ + | Thania aMllory | ECON | Unknown | | + + +---------+ + | Saundra Mallory | ECON | Unknown | | + + +---------+ + Care Team Providers + +------+ + | Care Cook Apprentice Pastry Name | Role | Phone | + [...] NEPHROLOGY [address] | M, DO [address] | | | | | [address] | [place] | | | | | [place], [place] | [place], [place] | | | | | [address] | [address] | | | | | [phone] | | | +--------+ + + + [...] in her mid left upper arm 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 In view of this will start her on ASA 81 mg, QD, and Plavix 75 mg, daily for prevention of AVF thrombosis, given the former indwelling stent. She was called by chief informatics officerElisabeth to begin above. : [facility] [...] [place] | | | | | | [place] [address] | | | | | | [phone] | | | | | | | | +--------+---------+ + + + documented as of this encounter Visit Diagnoses Not on filedocumented in this encounter
--- OUTSIDE RECORDS SUMMARY | ~2019-03-12 | XMS | Encounter Summary ---
Demographics + + + | Address | [address] | | | [place] [address] | + + + | Home Phone [...] | Author | [facility] | | | and Josephana | + + + | Organization | [facility] | [...] Team Providers + +------+ + | Care Covering And Lining Supervisor Name | Role | Phone | + +------+ + PCP | Unavailable | + +------+ + Encounter Details +--------+ + + + + | Date | Type | Department | Care Team | Description | +--------+ + + + + | 08/21/ | Hospital | [facility] | Conversion | End stage renal | | 2015 | Encounter | CENTER CV INTRA OP | Transaction, | disease (HCC); | | | | [address] | Provider Unknown | Mechanical | | | | [place], [place] | [phone] | complication of | | | | [address] | | other vascular | | | | [phone] | Darryn Whaley, | device, implant, and | | | | | [address] | graft (HCC) | | | | | [address] [place], [place] | | | | | | [address] | | | | | | | [...] E | | | | | | [place] [address] | | | | | | [phone] | | | | | | | [...] venous anastomosis without incidence. | | | [address], [address], [address], [address] | | + + + + + [...] | | | needle and exchanged for 4-Guyanese micropuncture sheath. Initial | | | fistula [...] | | needle and exchanged for 4 Guyanese short sheath over 0.03, angled | | | Glidewire. Subsequently, Glidewire was exchanged for 0.014, mailman | | | wire over 4 Guyanese angled glide catheter. Then, 4 mm x [...] micropuncture needle and exchanged | | for 4-Guyanese micropuncture sheath. Initial fistula pressure was obtained [...] | micropuncture needle and exchanged for 4 Guyanese short sheath over 0.03, angled | | Glidewire. Subsequently, Glidewire was exchanged for 0.014, mailman wire over 4 Guyanese | | angled glide catheter. Then, 4 [...] arterial venous | | anastomosis without incidence. 72954, 497[address], 89672, [address]17 | | | | | |41456, 56444, 40773, 55562 | | | | | + + [...] venous anastomosis without incidence. | | | [address], [address], 01794, [address] | | + + + + + [...] | | | needle and exchanged for 4-Guyanese micropuncture sheath. Initial | | | fistula [...] | | needle and exchanged for 4 Guyanese short sheath over 0.03, angled | | | Glidewire. Subsequently, Glidewire was exchanged for 0.014, mailman | | | wire over 4 Guyanese angled glide catheter. Then, 4 mm x [...] micropuncture needle and exchanged | | for 4-Guyanese micropuncture sheath. Initial fistula pressure was obtained [...] | micropuncture needle and exchanged for 4 Guyanese short sheath over 0.03, angled | | Glidewire. Subsequently, Glidewire was exchanged for 0.014, mailman wire over 4 Guyanese | | angled glide catheter. Then, 4 [...] arterial venous | | anastomosis without incidence. 47807, 67584, 612[address], [address]31 | | | | | |[address], [address]7020, [address], [address] | | | | | + + documented in this encounter Visit Diagnoses + + | Diagnosis | + + | End stage renal disease (HCC) End stage renal disease | + + | Mechanical complication of other vascular device, implant, and graft | + + documented in this encounter"
--- OUTSIDE RECORDS SUMMARY | ~2019-03-12 | XMS | Encounter Summary ---
Demographics + + + | Address | [address] | | | [place] [address] | + + + | Home Phone [...] | | | | | [place] [address] | | + + + + + | Thania Mallory | ECON | [address] | | | | | [place] [address] | | + + + + + | Deidra Weldon | ECON | [address] | | | | | [place] | | | | | [address] | | + + + + + Care Team Providers + +------+ + | Care Home Economist Consumer Service Name | Role | Phone | [...] Nephrology at | MD Emanuel [address] [facility] | Recommendations | | | | [place] | [address] | | | | | [facility] | [place], [place] | | | | | [address] | [address] | | | | | Mailcode: DCH7 | [phone] | | | | | [place] | | | | | | [place], [place] | | | | | | [address] | | | | | | [phone] | | | +--------+ + + + [...] Denise | | | | | | [place] | | | | | | [address] | | | | | | [phone] | | | | | | | | +--------+ + + + + documented as of this encounter Visit Diagnoses Not on filedocumented in this encounter"
--- OUTSIDE RECORDS SUMMARY | ~2019-03-12 | XMS | Encounter Summary ---
Demographics + + + | Address | [address] | | | [place] [address] | + + + | Home Phone [...] | | | | | [place] [address] | | + + + + + | Thania Mallory | ECON | [address] | | | | | [place] [address] | | + + + + + | Deidra Weldon | ECON | [address] | | | | | [place] | | | | | [address] | | + + + + + Care Team Providers + +------+ + | Care Monologist Name | Role | Phone | + [...] | purpura | [address] | [facility] [address] | | | | | ([facility]) [facility] | [address] | [address] | | | | | ([place]ie | [address] | Mailcode: | | | | | [address]lein | [place], [place] | [place] | | | | | purpura) | [address] | [address] | | | | | nephritis | Phone: | [place], [place] | | | | | ([facility]) | [phone] | [address] | | | | | Hemodialysis | Fax: | Phone: | | | | | status | [phone] | [phone] | | | | | ([facility]) | | Fax: | | | | | Chronic | | [phone] | | | | | kidney | | | | | | | disease, | | | | | | | stage V | | | | | | | ([facility]) | | | | | [...] | | 2014 | Encounter | at [facility] [address] | | | | | | [address] Mailcode: | | | | | | [id number] | | | | | | [place], [place] | | | | | | [address] | | | | | | [phone] | | | +--------+ + + + [...] [place] | | | | | | [address] | | | | | | [phone] | | | | | | | [...] | e | 1:18 PM | MEDICARE [address] [facility] | procedure are in the | [...] 2:35 PM PST Echocardiography Laboratory | | [address] | | [place] [address] | | ; | | [id number] | | | | Transthoracic Echocardiogram Report | | | | | | NAME: DARA WELDON Study Date: 01/20/2015 1:18:29 PM | | Order #: [id number] ACC #: [id number] | | | | | | : [...] on 01/20/2015 at 2:35:17 PM | | Water Taxi Driver: YARITZA KLINE RDEDNA | | | | | | cc: | | | | | | Modes utilized | | TTE 31804; Spectral Doppler 92559; Color flow Doppler 74262; | | | | | | | | Final | + + + + + + + | Performing | Address | City/State/Zipcode | Phone Number | | Organization | | | | + + + + + | [facility] | [address] | [place], [place] | | | CARDIOLOGY | [address] | [address] | | + + + + + [...]
--- OUTSIDE RECORDS SUMMARY | ~2019-03-12 | XMS | Encounter Summary ---
Demographics + + + | Address | [address] | | | [place] [address] | + + + | Home Phone [...] Author | [facility] [place]ane | | | and Josephana | + + + | Organization | [facility] [...] + +------+ + | Care Room Service Supervisor Name | Role | Phone | + +------+ + | Tien Nicholson MD | PCP | | + +------+ + Encounter Details +--------+ + + + + | Date | Type | Department | Care Team | Description | +--------+ + + + + | 07/18/ | Hospital | [facility] | Mary Mckay, | Febrile illness; | | 2019 - | Encounter | [facility] | [address] | Recurrent pleural | | | | CARE FLOOR [address] | [place] [address] | effusion on right; | | 07/24/ | | [address] | [phone] | Hypoxia; History of | | 2019 | | [place], [place] | | end stage renal | | | | [address] | | disease; ESRD on | | | | [phone] | | hemodialysis ([facility]); | | | | | | Anemia in ESRD | | | | | | (end-stage renal | | | | | | disease) ([facility]); | | | | | | Moderate to severe | | | | | | pulmonary | | | | | | hypertension ([facility]); | | | | | | Chronic right-sided | | | | | | heart failure ([facility]); | | | | | [...] 1306 Date of Service: 07/24/18905 Status: Signed Records Management Manager: Usha Martínez MD (Physician) [facility] Service: Hospitalist Discharge Summary Date of Admission: [...] renal disease on hemodialysis Monday and Monday (nail feeder Dr. 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, hypertension, asthma, chronic combined heart failure, severe pulmonary hypertension, cor pulmonale, moderate mitral valve regurgitation, severe tricuspid regurgit ation and other chronic comorbidities who was discharged on 05/2018 from [facility] with bilateral pleural effusions and ascites status post thoracentesis 1.5 L removed transudative and 4 L ascitic fluid removed who presents to [facility] ER from [place] [facility] for sepsis likely seco ndary to [...] after discharge and to follow -up with nail feeder and poultry scalder within 1 to 2 weeks after discharge [...] GRAFT REPAIR/REVISION; Surgeon: Rik Simon MD; Location: [facility] IN OR; Service: Vascular; Laterality: Left; DECLOT GRAFT Left 03/07/2014 Procedure: GRAFT - DECLOT; Surgeon: Rik Simon MD; Location: [facility] MAIN OR; Service: Vas cular; Laterality: Left; DIALYSIS FISTULA CREATION N/A 04/08/2014 Procedure: DIALYSIS CATHETER - INSERTION; Surgeon: Rik Simon MD; Location: [facility] OR ; Service: Vascular; Laterality: N/A; tunneled catheter LAPAROSCOPIC PERITONEAL DIALYSIS CATHETER INSERTION x2 LAPAROSCOPIC PERITONEAL DIALYSIS CATHETER INSERTION Right 07/2013 current dialysis access MWF dialysis RENAL BIOPSY RENAL BIOPSY Left 2003 SUPERFICIALIZATION OF AV FISTULA Left 06/24/2014 Procedure: AV FISTULA - SUPERFICIALIZATION; Surgeon: Rik Simon MD; Location: [facility] OR; Service: Vascular; Laterality: Left; Allergies [...] PH Unknown 7.48 Fluid culture w/gram stain [[id number]] Collected: 07/21/18 1400 Order Status: Completed Lab Status: Preliminary result Updated: 07/24/18 0948 Specimen: Body Fluid from Thoracic Fluid Specimen Description THORACIC FLUID GRAM STAIN NO CELLS OR ORGANISMS SEEN CULTURE NO GROWTH 3 DAYS Fluid total protein (Body fluid) [[id number]] Collected: 07/21/18 1400 Order Status: Completed Lab Status: Final result Updated: 07/21/18 165 Specimen: Body Fluid from Thoracentesis Fluid FLUID TOTAL PROTEIN 4.2 g/dL Comment: This is not a manager health validated sample type for this method. No reference ra nges have been established. Testing performed at [facility], [address] [place] [address] FLUID TP SOURCE THORACENTESIS Comment: Testing performed at [facility];[address] [place] [address] Lactate dehydrogenase, body fluid [[id number]] Collected: 07/21/18 1400 Order Status: Completed Lab Status: Final result Updated: 07/21/181649 Specimen: Body Fluid from Thoracentesis Fluid FLUID LDH 148 U/L Comment: This is not a manager health validated sample type for this method. No reference ra nges have been established. Testing performed at [facility], [address] [place] [address] pH, body fluid [[id number]] Collected: 07/21/18 1400 Order Status: Completed Lab Status: Final result Updated: 07/21/18 1426 Specimen: Body Fluid from Thoracentesis Fluid FLUID PH 7.48 Comment: Testing performed at [facility];[address] [place] [address] Blood Culture Set 1 [[id number]] Collected: 07/19/18 0853 Order Status: Completed Lab Status: Preliminary result Updated: 07/21/18 06 Specimen: Blood from Blood, peripheral draw Specimen Description BLOOD, PERIPHERAL DRAW SPECIAL REQUESTS RIGHT AC CULTURE NO GROWTH 2 DAYS Blood Culture Set 2 [[id number]] Collected: 07/19/18 0925 Order Status: Completed Lab Status: Preliminary result Updated: 07/21/18 06 Specimen: Blood from Blood, peripheral draw Specimen Description BLOOD, PERIPHERAL DRAW SPECIAL REQUESTS RT FOREARM CULTURE NO GROWTH 2 DAYS Respiratory Filmarray [[id number]] (Abnormal) Collected: 07/19/18 0132 Order Status: Completed [...] by Molecular Methodology Comment: Testing performed at [facility], [address] [place] [address] MRSA by PCR [[id number]] Collected: 07/19/18 013 Order Status: Completed Lab Status: Final result Updated: 07/19/18303 Specimen: Nasal from Nares(Nose) SOURCE NARES(NOSE) MRSA PCR NEGATIVE Comment: Testing performed at [facility];[address] [place] [address];[place] [address] Disposition: Home Condition: Stable Code Status: Full [...] Follow up: Tien Nicholson MD [address] [facility], [address] [place] [address] Schedule an appointment as soon as possible for a visit in 1 week [facility] NEPHROLOGY [address] [place] [address] Schedule an appointment as soon as possible for a visit in 1 week [facility] PULMONOLOGY [address] [place] [address] Schedule an appointment as soon as [...] Date of Service: 07/24/18 1028 Status: Signed Records Management Manager: Iram Saleh RN (Registered Nurse) Disposition: [...] Date of Service: 07/24/18 1016 Status: Signed Records Management Manager: Christina Aguilar RN (Registered Nurse) Discharge teaching given, prescriptions faxed by briefcase sewer to pt's pharmacy. Pt denies c oncern. Ride home at bedside. Pt getting dressed now for discharge. onver arturo Transaction, Provider Unknown - 07/24/2018 10:12 AM PDT Case Management by Iram Saleh RN at 07/24/18 1012 Author: Iram Saleh RN Service: (none) Author Type: Registered Nurse Filed: 07/24/18 1014 Date of Service: 07/24/18 1012 Status: Signed Records Management Manager: Iram Saleh RN (Registered Nurse) Discharge planning: Met with pt, she indicated her friend is on her way to transport her from the hospital, no other needs identified. ADÁN signed and copy placed in chart. Pt's discharge prescriptions was faxed to [facility], Billie Braxton MD - 07/24/2018 9:09 AM PDTFormatting of this note might be different from th e original. Progress Notes by Billie Gupta MD at 07/24/18 09 Author: Billie Gupta MD Service: Nephrology Author Type: Physician Filed: 07/24/18910 Date of Service: 07/24/18908 Status: Signed Records Management Manager: Billie Gupta MD (Physician) [facility] Followup -Nephrology I saw Ms. Dara Louise today for follow-up. she is interviewed, examined and meds/ labs Have been reviewed. 23-year-old female with an extensive past medical history of IgA vasculitis, end-stage abdiel l disease on hemodialysis Monday and Monday (nail feeder Dr. Anguiano) , chronic c ombined heart failure, severe pulmonary hypertension, cor pulmonale, moderate mitral valve r egurgitation, severe tricuspid regurgitation and other chronic comorbidities who was dischar ged on 05/2018 from [facility] with bilateral pleural effusions and [...] 07/24/18524 Date of Service: 07/24/18454 Status: Signed Records Management Manager: Minda Hudson RN (Registered Nurse) Pt [...] (none) Author Type: Registered Nurse Filed: 07/23/18 2805 Date of Service: 07/23/181825 Status: Signed Records Management Manager: Saundra Hartley RN (Registered Nurse) Pt [...] 07/23/181336 Date of Service: 07/23/181335 Status: Signed Records Management Manager: Sotero Reinoso MD (Physician) [facility] Service: Hospitalist Progress Note Hospital Day: LOS: 4 days Briefly, 23-year-old female with an extensive past medical history of IgA vasculitis, end-s tage renal disease on hemodialysis Monday and Monday (nail feeder Dr. Anguiano) co mplicated with thrombosis of vascular dialysis stent on Plavix, hypertension, asthma, chroni c combined heart failure, severe pulmonary hypertension, cor pulmonale, moderate mitral valv e regurgitation, severe tricuspid regurgitation and other chronic comorbidities who was disc harged on 05/2018 from [facility] with bilateral pleural effusions and ascites status post thorace ntesis 1.5 L removed transudative and 4 L ascitic fluid removed who presents to [facility] E R from [place] [facility] for sepsis likely secondary to pulmonary [...] weeks after discharge and to follow-up with nail feeder and poultry scalder within 1 to 2 weeks after discharge [...] in ESRD (end-stage renal disease) ([facility]) ASSESSMENT & PLAN 1. Sepsis: -Hemodynamically stable. -Noted at [facility] the patient was febrile with a T-max [...] The patient does follow up with outpatient poultry scalder (Dr. Mahmood) patient is tentative ly and [...] 07/23/18926 Date of Service: 07/23/18917 Status: Signed Records Management Manager: Billie Gupta MD (Physician) [facility] Followup -Nephrology I saw Ms. Dara Louise today for follow-up. she is interviewed, examined and meds/ labs Have been reviewed. 23-year-old female with an extensive past medical history of IgA vasculitis, end-stage abdiel l disease on hemodialysis Monday and Monday (nail feeder Dr. Anguiano) , chronic c ombined heart failure, severe pulmonary hypertension, cor pulmonale, moderate mitral valve r egurgitation, severe tricuspid regurgitation and other chronic comorbidities who was dischar ged on 05/2018 from [facility] with bilateral pleural effusions and ascites status post thoracente sis 1.5 L removed transudative and 4 L ascitic fluid removed who presents to [facility] ER f [facility] ER for sepsis likely secondary to [...] 07/23/18622 Date of Service: 07/23/18622 Status: Signed Records Management Manager: Shannon Martell RN (Registered Nurse) No [...] 07/22/181726 Date of Service: 07/22/181722 Status: Signed Records Management Manager: Sotero Reinoso MD (Physician) [facility] Service: Hospitalist Progress Note Hospital Day: LOS: 3 days 23-year-old female with an extensive past medical history of IgA vasculitis, end-stage abdiel l disease on hemodialysis Monday and Monday (nail feeder Dr. Anguiano) complicated with thrombosis of vascular dialysis stent on Plavix, hypertension, asthma, chronic combine d heart failure, severe pulmonary hypertension, cor pulmonale, moderate mitral valve regurgi tation, severe tricuspid regurgitation and other chronic comorbidities who was discharged on 05/2018 from [facility] with bilateral pleural effusions and ascites status post thoracentesis 1.5 L removed transudative and 4 L ascitic fluid removed who presents to [facility] ER from [facility] ER for sepsis likely [...] in ESRD (end-stage renal disease) ([facility]) ASSESSMENT & PLAN 1. Sepsis: -Hemodynamically stable. -Noted at [facility] the patient was febrile with a T-max [...] The patient does follow up with outpatient poultry scalder (Dr. Mahmood) patient is tentative ly and [...] Date of Service: 07/22/18 1609 Status: Addendum Records Management Manager: Rafaela Patel RN (Registered Nurse) Related [...] Date of Service: 07/22/18 09 Status: Addendum Records Management Manager: Billie Gupta MD (Physician) Related Notes: Original Note by KRISHNA Sahu (Advanced Registered Nurse Practitio [facility]) filed at 07/22/18 1057 [facility] Followup -Nephrology I saw Ms. Dara Louise today for follow-up. she is interviewed, examined and meds/ labs Have been reviewed. 23-year-old female with an extensive past medical history of IgA vasculitis, end-stage abdiel l disease on hemodialysis Monday and Monday (nail feeder Dr. Anguiano) complicated with thrombosis of vascular dialysis stent on Plavix, hypertension, asthma, chronic combine d heart failure, severe pulmonary hypertension, cor pulmonale, moderate mitral valve regurgi tation, severe tricuspid regurgitation and other chronic comorbidities who was discharged on 05/2018 from [facility] with bilateral pleural effusions and ascites status post thoracentesis 1.5 L removed transudative and 4 L ascitic fluid removed who presents to [facility] ER from [facility] ER for sepsis likely [...] 0656 Date of Service: 07/22/18653 Status: Signed Records Management Manager: Priti Priest RN (Registered Nurse) SBP 80-100's, Pt reports slight lightheadedness with pressures in 80's. Afebrile. HR SR 80' s. No other changes over noc. [facility] Chart chart complete onver arturo Transaction, Provider Unknown - 07/21/2018 7:42 PM PDT Nurse Progress Note by Francesca Bustos RN at 07/21/181941 Author: Francesca Bustos RN Service: (none) Author Type: Registered Nurse Filed: 07/21/181942 Date of Service: 07/21/181941 Status: Signed Records Management Manager: Francesca Bustos RN (Registered Nurse) No [...] Date of Service: 07/21/18 1233 Status: Signed Records Management Manager: Sotero Reinoso MD (Physician) [facility] Service: Hospitalist Progress Note Hospital Day: LOS: 2 days 23-year-old female with an extensive past medical history of IgA vasculitis, end-stage abdiel l disease on hemodialysis Monday and Monday (nail feeder Dr. Anguiano) complicated with thrombosis of vascular dialysis stent on Plavix, hypertension, asthma, chronic combine d heart failure, severe pulmonary hypertension, cor pulmonale, moderate mitral valve regurgi tation, severe tricuspid regurgitation and other chronic comorbidities who was discharged on 05/2018 from [facility] with bilateral pleural effusions and ascites status post thoracentesis 1.5 L removed transudative and 4 L ascitic fluid removed who presents to [facility] ER from [facility] ER for sepsis likely [...] in ESRD (end-stage renal disease) ([facility]) ASSESSMENT & PLAN 1. Sepsis: -Hemodynamically stable. -Noted at [facility] the patient was febrile with a [...] The patient does follow up with outpatient poultry scalder (Dr. Mahmood) patient is tentative ly and [...] Date of Service: 07/21/18 1024 Status: Signed Records Management Manager: Billie Gupta MD (Physician) [facility] Followup -Nephrology I saw . Dara Louise [...] 07/21/18614 Date of Service: 07/21/18614 Status: Signed Records Management Manager: Gris Hawk RN (Registered Nurse) Medicated for pain x1, nausea x1. No other acute changes noted. End of shift review complet e. onver arturo Transaction, Provider Unknown - 07/20/2018 7:44 PM PDT Nurse Progress Note by Francesca Bustos RN at 07/20/181943 Author: Francesca Bustos RN Service: (none) Author Type: Registered Nurse Filed: 07/20/181945 Date of Service: 07/20/181943 Status: Signed Records Management Manager: Francesca Bustos RN (Registered Nurse) No [...] 07/20/181624 Date of Service: 07/20/181624 Status: Signed Records Management Manager: Prashanth Estevez RN (Registered Nurse) Infection [...] Mycoplasma pneumoniae Droplet (DI) Prashanth Estevez [facility] [place] blemo Sotero parker MD - 07/20/2018 4:15 PM PDT Progress Notes by Sotero Reinoso MD at 07/20/181614 Author: Sotero Reinoso MD Service: Hospitalist Author Type: Physician Filed: 07/20/181625 Date of Service: 07/20/181614 Status: Signed Records Management Manager: Sotero Reinoso MD (Physician) [facility] Service: Hospitalist Progress Note Hospital Day: LOS: 1 day 23-year-old female with an extensive past medical history of IgA vasculitis, end-stage abdiel l disease on hemodialysis Monday and Monday (nail feeder Dr. Anguiano) complicated with thrombosis of vascular dialysis stent on Plavix, hypertension, asthma, chronic combine d heart failure, severe pulmonary hypertension, cor pulmonale, moderate mitral valve regurgi tation, severe tricuspid regurgitation and other chronic comorbidities who was discharged on 05/2018 from [facility] with bilateral pleural effusions and [...] in ESRD (end-stage renal disease) ([facility]) ASSESSMENT & PLAN 1. Sepsis: -Hemodynamically stable. -Noted at [facility] the patient was febrile with a [...] The patient does follow up with outpatient poultry scalder (Dr. Mahmood) patient is tentative ly and [...] Date of Service: 07/20/18 1507 Status: Signed Records Management Manager: Stephanie Hirsch RN (Registered Nurse) 07/20/18 [...] Oriented Prior functional status independent Power of Computer Engineering Technologist No Anticipated Discharge Plan Post Acute Care Needs None at this time Plan communicated to patient/family Yes Resources Financial concerns No Transportation issues No Patient/Family concerns No Prescription Plan Yes Name of Pharmacy [facility] Previous home health equipment [...] resources utilized / needed: Dialysis [facility] Assistance in transportation: pov w/friends Identification [...] Date of Service: 07/20/18 0850 Status: Signed Records Management Manager: KRISHNA [place] (Advanced Registered Nurse Practitioner) [facility] Service: Radiology Progress Note Patient evaluated for [...] 07/20/18655 Date of Service: 07/20/18654 Status: Signed Records Management Manager: Nereida Edwards RN (Registered Nurse) VS [...] 07/19/181925 Date of Service: 07/19/181925 Status: Signed Records Management Manager: Francesca Bustos RN (Registered Nurse) No [...] Service: Nephrology Author Type: Physician Filed: 07/19/18 7716 Date of Service: 07/19/181349 Status: Signed Records Management Manager: Antonio Pabon MD (Physician) [facility] Service: NEPHROLOGY Dialysis Note Dara Louise 23 y.o. [id number] female [facility] Day: LOS: 0 days 23-year-old female [...] FISTULA; Surgeon: Rik Simon MD; Location: [facility] OR; Service: Vascula r; Laterality: Left; cephalic AV FISTULA REPAIR Left 03/07/2014 Procedure: AV FISTULA - GRAFT REPAIR/REVISION; Surgeon: Rik Simon MD; Location: [facility] IN OR; Service: Vascular; Laterality: Left; DECLOT [...] on file Social History Narrative Lives in [facility], 2 wks ago fell at home [...] earlier and charting completed later Dictation software, [employer], used which may contain error for similar [...] Date of Service: 07/19/18 1020 Status: Signed Records Management Manager: Francesca Bustos RN (Registered Nurse) No [...] Date of Service: 07/19/18 0801 Status: Addendum Records Management Manager: Sotero Reinoso MD (Physician) Related Notes: Original Note by Sotero Reinoso MD (Physician) filed at 07/19/18 0138 [facility] Service: Hospitalist Progress Note Hospital Day: LOS: 0 days 23-year-old female with an extensive past medical history of IgA vasculitis, end-stage abdiel l disease on hemodialysis Monday and Monday (nail feeder Dr. Anguiano) complicated with thrombosis of vascular dialysis stent on Plavix, hypertension, asthma, chronic combine d heart failure, severe pulmonary hypertension, cor pulmonale, moderate mitral valve regurgi tation, severe tricuspid regurgitation and other chronic comorbidities who was discharged on 05/2018 from [facility] with bilateral pleural effusions and ascites status post thoracentesis 1.5 L removed transudative and 4 L ascitic fluid removed who presents to [facility] ER from [facility] ER for sepsis likely [...] -Hemodynamically stable except for tachycardia. -Noted at [facility] the patient was febrile with a T-max [...] The patient does follow up with outpatient poultry scalder (Dr. Mahmood) patient is tentative ly and [...] 07/19/18129 Date of Service: 07/19/18129 Status: Signed Records Management Manager: Jae Gutierres RPH (Pharmacist) Renal Dosing [...] [address] | | | | | | [place] [address] | | | | | | [phone] | | | | | | | [...] [facility];[address] | | LAB | | | | [address];[place] | | | | | | [address] | | | | + + + [...] [place];[address] | | | | | | [facility];[place], [place] | | | | | | [address] | | | | + + + [...] [place];[address] | | | | | | [address] [facility];[place], [place] | | | | | | [address] | | | | + + + [...] | | LAB | | | | [facility], | | | | | | [place] [address] | | | | + + + [...] W | | | | | | [facility], | | | | | | [place] [address] | | | | + + + [...] | EXTERNAL LAB | | not a manager health validated sample type for this method. No reference | | | ranges have been established. Testing performed at [facility], [address] | | | [place] [address] FLUID TP SOURCE | | | THORACENTESIS Testing performed at [facility];[address] | [address];[place] [address] | | + + + + +---------+ [...] EXTERNAL LAB | | is not a manager health validated sample type for this method. No | | | reference ranges have been established. Testing performed at [facility], | | | [address] [place] [address] | | + + + + +---------+ [...] EXTERNAL LAB | | Testing performed at [facility];[address] [place] [address];[place] [address] | | + + + + +---------+ [...] [facility];[address] | | LAB | | | | [address];[place] | | | | | | [address] | | | | + + + [...] [facility];[address] | | LAB | | | | [address];[place], [place] | | | | | | [address] | | | | + + + [...] pleural | | | effusion. REFERRING PHYSICIAN Stoero Reinoso M.D. | | | DESCRIPTION OF [...] with arms on the | | | cuob-vix-bnq table. Ultrasound was utilized to tk an [...] | | | possibility of "sound alike" shell molder errors, addition and/or | | | deletions [...] at the bedside with arms on the liqs-drh-erg | | table. Ultrasound was utilized to [...] recognition system. The possibility of "sound alike" shell molder errors, | | addition and/or deletions may [...] system. The possibility of "sound a like" shell molder errors, addition and/or deletions may occur. If [...] | | | | | | at [facility], [address] | | | | | [address], | | | | | | [place] [address] | | | | | |Testing performed at [facility], [address], [place] [address] | | | | | | | [...] | | | | | [place] [address] | | | | + + + [...] | LAB | | | | [address];[place], [place] | | | | | | [address] | | | | + + + [...] ultrasound guidance. | | Signed by: Eliza Butsos Shawn | | Sign Date/Time: 07/20/2018 11:43 [...] | | | Patient | performed at [facility];[address] | | LAB | | | | [address];[place], [place] | | | | | | [address] | | | | + + + [...] [place];[address] | | | | | | [address];[place], [place] | | | | | | [address] | | | | + + + [...] | | | Estimate | performed at [facility] | | LAB | | | | Nica Oropeza;[place], [place] | | | | | | [address] | | | | + + + [...] performed at [facility] | | | | | | [facility];[place], [place] | | | | | | [address] | | | | + + + [...] at | | | | | | [facility];[address] [place] [address] | | | | | | [facility];[place] [address] | | | | + + + [...] [place];[address] | | | | | | [facility];[place], [place] | | | | | | [id number] ON 07/19 | | | | | [...] at | | | | | | [facility];[address] [place] [address] | | | | | | Blvd;[place] [address] | | | | + + + [...] | | | | | | at [facility], [address] | | | | | | [facility], | | | | | | [place] [address] | | | | | |Testing performed at [facility], [address] [facility], [place] [address] | | | | | | | [...] | LAB | | | | Opal [facility], | | | | | | [place] [address] | | | | + + + [...] | | | | | [place] [address] | | | | + + + [...] W | | | | | | [facility], | | | | | | [place] [address] | | | | + + + [...] NEGATIVE Testing | | | performed at [facility];[address] [place] [address];[place] [address] | | + + + + +---------+ [...] at | | | [facility], [address] [place] [address] | | + + + + +---------+ [...] | LAB | | | | Nica Oropeza;[place] | | | | | | [address] | | | | + + + [...] | | | | | | at [facility];[address] [place] [address] | | | | | | [facility];[place] [address] | | | | + + + [...] at | | | | | | [facility];[address] [facility] | | | | | | Blvd;[place] [address] | | | | + + + [...] | | | QUALITATIVE | performed at [facility] | | LAB | | | | Nica Oropeza;[place] | | | | | | [address] | | | | + + + [...] in ESRD (end-stage renal disease) ([facility]) Anemia in chronic kidney disease | + + | Moderate to severe pulmonary hypertension (HCC) Other chronic pulmonary heart | | diseases | + + | Chronic right-sided heart failure (HCC) Congestive heart failure, unspecified | + + | Pleural effusion on right Unspecified pleural effusion | + + documented in this encounter
--- OUTSIDE RECORDS SUMMARY | ~2019-03-12 | XMS | Encounter Summary ---
Demographics + + + | Address | [address] [place] [address] | | | [place] [address] | + + + | Home Phone [...] | | | | | [place] [address] | | + + + + + | Thania Mallory | ECON | [address] | | | | | [place] [address] | | + + + + + | Deidra Weldon | ECON | [address] | | | | | [place] | | | | | [address] | | + + + + + Care Team Providers + +------+ + | Care Braddisher Name | Role | Phone | + [...] | | [facility] | [place], [place] | | | | | [address] | [address] | | | | | Mailcode: [id number] | [phone] | | | | | [place] | | | | | | [place], [place] | | | | | | [address] | | | | | | [phone] | | | +--------+ + + + [...] Denise | | | | | | [place], [place] | | | | | | [address] | | | | | | [phone] | | | | | | | [...] + + | [facility] - | [address] | [place] | [phone] | | [place] | | | | + + + + + documented in this encounter Visit Diagnoses Not on filedocumented in this encounter"
--- OUTSIDE RECORDS SUMMARY | ~2019-03-12 | XMS | Encounter Summary ---
Demographics + + + | Address | [address] | | | [place] [address] | + + + | Home Phone [...] Author | [facility] | | | and [place] | + + + | Organization | [facility] [...] Team Providers + +------+ + | Care Geopolitics Teacher Name | Role | Phone | [...] NEPHROLOGY [address] | MD [address] | (Asymptomatic) | | | | [address] | [address] [place] | | | | | [place], [place] | [place] [address] | | | | | [address] | [phone] | | | | | [phone] | | | +--------+ + + + [...] AM PDTHEMO progress note manually faxed to [facility] [place], e-faxed to [facility] Pediatric Nephrology on 09/30. Daniela Marquez MD - 09/20/2013 2:55 PM PDT Comprehensive Dialysis Monthly Note Date of visit: 09/20/2013 Dialysis Clinic: [facility] Mode of dialysis: Hemodialysis [...] Date Noted ESRD (end stage renal disease) ([facility]) Priority: High Note Last Updated: 07/29/2013 Due to Henoch-Schonlein purpura. On hemodialysis, started July 2013. Prior on peritoneal dialysis, started 2012. Access: R chest catheter. Peritonitis, dialysis-associated ([facility]) 07/29/2013 Note Last Updated: 07/29/2013 Due to MSSA. Had tunneled infection as well. PD catheter removed in July 2013. On Keflex till 08/01/13. History of Henoch-Schonlein purpura Note Last Updated: 07/29/2013 Diagnosed at age 10[address] Joy, pediatric nurse practitioner. 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 Pt has been referred to [facility]. -pt will f/u with them next month [facility] Lianna Joy, [facility] Pediatric Nephrology documented in this encounter [...] DAV[place] | | | | | | [place] [address] | | | | | | [phone] | | | | | | | [...]
--- OUTSIDE RECORDS SUMMARY | ~2019-03-12 | XMS | Encounter Summary ---
Demographics + + + | Address | [address] | | | [place] [address] | + + + | Home Phone [...] | | | | | [place] [address] | | + + + + + | Thania Mallory | ECON | [address] | | | | | [place] [address] | | + + + + + | Deidra Weldon | ECON | [address] | | | | | [place] | | | | | [address] | | + + + + + Care Team Providers + +------+ + | Care Drum Worker Name | Role | Phone | [...] | | | | | [address] [facility] | [facility] | | | | | [facility], | [place], [place] | | | | | [place] [address] | [address] | | | | | [phone] | | | +--------+ + + + [...] Denise | | | | | | [place], [place] | | | | | | [address] | | | | | | [phone] | | | | | | | | +--------+ + + + + documented as of this encounter Visit Diagnoses Not on filedocumented in this encounter"
--- OUTSIDE RECORDS SUMMARY | ~2019-03-12 | XMS | Encounter Summary ---
Demographics + + + | Address | [address] | | | [place] [address] | + + + | Home Phone [...] | | | | | [place] [address] | | + + + + + | Thania Mallory | ECON | [address] | | | | | [place] [address] | | + + + + + | Deidra Weldon | ECON | [address] | | | | | [place] | | | | | [address] | | + + + + + Care Team Providers + +------+ + | Care Qa Intern Name | Role | Phone | [...] | 2013 | | Transplant Services | INJECTION MOLDING TECHNICIAN [place], [place] | Update | | | | [address] | [address] | | | | | [address] [place], | | | | | | [place] [address] | | | | | | [phone] | | | +--------+ + + + [...] | | | | | | [place], [place] | | | | | | [address] | | | | | | [phone] | | | | | | | | +--------+ + + + + documented as of this encounter Visit Diagnoses Not on filedocumented in this encounter"
--- OUTSIDE RECORDS SUMMARY | ~2019-03-12 | XMS | Encounter Summary ---
Demographics + + + | Address | [address] | | | [place] [address] | + + + | Home Phone [...] + | Author | [facility] | | | and [place] | + + + | Organization | [facility] | | [...] Team Providers + +------+ + | Care Narcotics And Vice Detective Name | Role | Phone | [...] NEPHROLOGY [address] | M, DO [address] [place] | | | | | [address] | [place], [address] | | | | | [place], [place] | [place], [place] | | | | | [address] | [address] | | | | | [phone] | | | +--------+ + + + [...] to [facility] Nephrology (fx: [phone]) on 01/20/14. documented in this encounter Plan [...] DAV[place]SON | | | | | | [place] [address] | | | | | | [phone] | | | | | | | | +--------+---------+ + + + documented as of this encounter Visit Diagnoses Not on filedocumented in this encounter"
--- OUTSIDE RECORDS SUMMARY | ~2019-03-12 | XMS | Encounter Summary ---
Demographics + + + | Address | [address] | | | [place] [address] | + + + | Home Phone [...] | | | | | [place] [address] | | + + + + + | Thania Mallory | ECON | [address] | | | | | [place] [address] | | + + + + + | Deidra Weldon | ECON | [address] | | | | | [place] | | | | | [address] | | + + + + + Care Team Providers + +------+ + | Care On Air Personality Name | Role | Phone | + [...] [facility]) | [address] | Rd [place], | | | | | Allergic | [place], [place] | [place] | | | | | purpura | [address] | [address] | | | | | ([facility]) | Phone: | Phone: | | | | | | [phone] | [phone] | | | | | | Fax: | Fax: | | | | | | [phone] | [phone] | +--------+--------+ + + + + Encounter Details +--------+ + + + + | Date | Type | Department | Care Team | Description | +--------+ + + + + | 12/20/ | Hospital | Radiology at [facility] | | | | 2012 | Encounter | [address] | | | | | | Mailcode: [id number] | | | | | | [place] | | | | | | [place], [place] | | | | | | [address] | | | | | | [phone] | | | +--------+ + + + [...] Denise | | | | | | [place], [place] | | | | | | [address] | | | | | | [phone] | | | | | | | [...] + +---------+ + + | [facility] DEPARTMENT OF | | | | | RADIOLOGY | | | | + +---------+ + + documented in this encounter Visit Diagnoses + + | Diagnosis | + + | 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
--- OUTSIDE RECORDS SUMMARY | ~2019-03-12 | XMS | Encounter Summary ---
Demographics + + + | Address | [address] | | | [place] [address] | + + + | Home Phone [...] | | | | | [place] [address] | | + + + + + | Thania Mallory | ECON | [address] | | | | | [place] [address] | | + + + + + | Deidra Weldon | ECON | [address] | | | | | [place] | | | | | [address] | | + + + + + Care Team Providers + +------+ + | Care Gas Shovel Operator Name | Role | Phone | [...] | | | | | [address] [place], | [place], [place] | | | | | [place] [address] | [address] | | | | | [phone] | | | +--------+ + + + [...] [place] | | | | | | [address] | | | | | | [phone] | | | | | | | | +--------+ + + + + documented as of this encounter Visit Diagnoses Not on filedocumented in this encounter"
--- OUTSIDE RECORDS SUMMARY | ~2019-03-12 | XMS | Encounter Summary ---
Demographics + + + | Address | [address] | | | [place] [address] | + + + | Home Phone [...] Author | [facility] | | | and [place] | + + + | Organization | [facility] | | [...] Providers + +------+ + | Care Java Sdet Name | Role | Phone | + [...] NEPHROLOGY [address] | M, DO [address] [place] | | | | | [address] | [place], [address] | | | | | [place], [place] | [place], [place] | | | | | [address] | [address] | | | | | [phone] | | | +--------+ + + + [...] Jennings - 12/29/2016 3:48 PM PDTOutside records: [facility] utilization revie w form confidential [...] DAV[place]SON | | | | | | [place] [address] | | | | | | [phone] | | | | | | | | +--------+---------+ + + + documented as of this encounter Visit Diagnoses Not on filedocumented in this encounter"
--- OUTSIDE RECORDS SUMMARY | ~2019-03-12 | XMS | Encounter Summary ---
Demographics + + + | Address | [address] | | | [place] [address] | + + + | Home Phone [...] + | Author | [facility] | | | and [place] | + + + | Organization | [facility] | [...] Providers + +------+ + | Care Radio Mechanic Apprentice Name | Role | Phone | [...] NEPHROLOGY [address] | M, DO [address] [place] | | | | | [address] | [place], [address] | | | | | [place], [place] | [place], [place] | | | | | [address] | [address] | | | | | [phone] | | | +--------+ + + + [...] | | | | | [place] [address] | | | | | | [phone] | | | | | | | | +--------+---------+ + + + documented as of this encounter Visit Diagnoses Not on filedocumented in this encounter"
--- OUTSIDE RECORDS SUMMARY | ~2019-03-12 | XMS | Encounter Summary ---
Demographics + + + | Address | [address] | | | [place] [address] | + + + | Home Phone [...] | | | | | [place] [address] | | + + + + + | Thania Mallory | ECON | [address] | | | | | [place] [address] | | + + + + + | Deidra Weldon | ECON | [address] | | | | | [place] | | | | | [address] | | + + + + + Care Team Providers + +------+ + | Care Train Planner Name | Role | Phone | + +------+ + | Shahid Camargo MD | PCP | | + +------+ + Reason for Visit +--------+ + | Reason | Comments | +--------+ + | Other | Requested [id number] | +--------+ + Encounter Details +--------+ + + + + | Date | Type | Department | Care Team | Description | +--------+ + + + + | 11/15/ | Telephone | Clinical | Jesus Edmond, | Other (Requested | | 2012 | | Transplant Services | [address] | [id number]) | | | | [address] | [facility] | | | | | [address] [place], | [place], [place] | | | | | [place] [address] | [address] | | | | | [phone] | [phone] | | | | | | | [...] Denise | | | | | | [place], [place] | | | | | | [address] | | | | | | [phone] | | | | | | | | +--------+ + + + + documented as of this encounter Visit Diagnoses Not on filedocumented in this encounter"
--- OUTSIDE RECORDS SUMMARY | ~2019-03-12 | XMS | Encounter Summary ---
Demographics + + + | Address | [address] | | | [place] [address] | + + + | Home Phone [...] | Author | [facility] | | | and [place] | + + + | Organization | [facility] [...] Providers + +------+ + | Care Java Flex Developer Name | Role | Phone | [...] | stage renal | [address] | [address] [place] [address] | | | | | disease) | [address]un [place] | [place] | | | | | ([facility]) | [address] | [address] [place] | | | | | Anemia in | [place], [place] | [place] | | | | | ESRD | [address] | [address] Phone: | | | | | (end-stage | Phone: | [phone] | | | | | renal | [phone] | Fax: | | | | | disease) | Fax: | [phone] | | | | | ([facility]) | [phone] | | | | | | Procedures [...] | | [address] | [place], [address] | (Primary Dx) | | | | [place], [place] | [place], [place] | | | | | [address] | [address] | | | | | [phone] | | | +--------+ + + + [...] DAV[place]SON | | | | | | [place] [address] | | | | | | [phone] | | | | | | | | +--------+---------+ + + + documented as of this encounter Visit Diagnoses + + | Diagnosis | + + | ESRD (end stage renal disease) (HCC) - Primary End stage renal disease | + + documented in this encounter"
--- OUTSIDE RECORDS SUMMARY | ~2019-03-12 | XMS | Encounter Summary ---
Demographics + + + | Address | [address] | | | [place] [address] | + + + | Home Phone [...] | | | | | [place] [address] | | + + + + + | Thania Mallory | ECON | [address] | | | | | [place] [address] | | + + + + + | Deidra Weldon | ECON | [address] | | | | | [place] | | | | | [address] | | + + + + + Care Team Providers + +------+ + | Care It Programmer Analyst Name | Role | Phone [...] | | | [address] | [place] [address] | | | | | [address] [place], | [place], [place] | | | | | [place] [address] | [address] | | | | | [phone] | [phone] | | | | | | | [...] Denise | | | | | | [place], [place] | | | | | | [address] | | | | | | [phone] | | | | | | | | +--------+ + + + + documented as of this encounter Visit Diagnoses Not on filedocumented in this encounter"
--- OUTSIDE RECORDS SUMMARY | ~2019-03-12 | XMS | Encounter Summary ---
Demographics + + + | Address | [address] | | | [place] [address] | + + + | Home Phone [...] | | | | | [place] [address] | | + + + + + | Deidra Weldon | ECON | [address] | | | | | [place] | | | | | [address] | | + + + + + [...] - | | | | [address] [place], | [place], [place] | psychosocial | | | | [place] [address] | [address] | readiness update) | | | | [phone] | | | +--------+ + + + [...] Denise | | | | | | [place], [place] | | | | | | [address] | | | | | | [phone] | | | | | | | | +--------+ + + + + documented as of this encounter Visit Diagnoses Not on filedocumented in this encounter"
--- OUTSIDE RECORDS SUMMARY | ~2019-03-12 | XMS | Encounter Summary ---
Demographics + + + | Address | [address] | | | [place] [address] | + + + | Home Phone [...] | Author | [facility] | | | and [place] | + + + | Organization | [facility] [...] Team Providers + +------+ + | Care Career Counselor Name | Role | Phone | + +------+ + PCP | Unavailable | + +------+ + Encounter Details +--------+---------+ + + + | Date | Type | Department | Care Team | Description | +--------+---------+ + + + | 07/10/ | E-Visit | [facility] | Jorje Camp | | | 2017 | | NEPHROLOGY [address] | M, DO [address] [place] | | | | | [address] | [place], [address] | | | | | [place], [place] | [place], [place] | | | | | [address] | [address] | | | | | [phone] | | | +--------+---------+ + + + [...] DAV[place]SON | | | | | | [place] [address] | | | | | | [phone] | | | | | | | | +--------+---------+ + + + documented as of this encounter Visit Diagnoses + + | Diagnosis | + + | ESRD (end stage renal disease) (HCC) - Primary End stage renal disease | + + documented in this encounter"
--- OUTSIDE RECORDS SUMMARY | ~2019-03-12 | XMS | Encounter Summary ---
Demographics + + + | Address | [address] | | | [place] [address] | + + + | Home Phone [...] | | | | | [place] [address] | | + + + + + | Thania Mallory | ECON | [address] | | | | | [place] [address] | | + + + + + | Deidra Weldon | ECON | [address] | | | | | [place] | | | | | [address] | | + + + + + Care Team Providers + +------+ + | Care Assistant Terminal Manager Name | Role | Phone | [...] update | | | | [address] [place], | [place], [place] | from pt's mom) | | | | [place] [address] | [address] | | | | | [phone] | | | +--------+ + + + [...] Denise | | | | | | [place] | | | | | | [address] | | | | | | [phone] | | | | | | | | +--------+ + + + + documented as of this encounter Visit Diagnoses Not on filedocumented in this encounter"
--- OUTSIDE RECORDS SUMMARY | ~2019-03-12 | XMS | Encounter Summary ---
Demographics + + + | Address | [address] | | | [place] [address] | + + + | Home Phone [...] + | Author | [facility] | | | and [place] | + + + | Organization | [facility] | | [...] Providers + +------+ + | Care Inspecting Machine Adjuster Name | Role | Phone [...] + | 02/28/ | Telephone | [facility] | Blake Chavarria | Appointment (Post | | 2013 | | SURGERY [address] | MD Antonieta, FACS [address] | Op) | | | | [place], [place] | [address] | | | | | [address] | [place] [address] | | | | | [phone] | [phone] | | | | | | | [...] [place] | | | | | | [place] [address] | | | | | | [phone] | | | | | | | | +--------+---------+ + + + documented as of this encounter Visit Diagnoses Not on filedocumented in this encounter"
--- OUTSIDE RECORDS SUMMARY | ~2019-03-12 | XMS | Encounter Summary ---
[...] | | | | | [place] [address] | | + + + + + | Thania Mallory | ECON | [address] | | | | | [place] [address] | | + + + + + | Deidra Weldon | ECON | [address] | | | | | [place] | | | | | [address] | | + + + + + Care Team Providers + +------+ + | Care Breaker Operator Name | Role | Phone | [...] | | | | | [address] [place], | | | | | | [place] [address] | | | +--------+ + + + [...] Denise | | | | | | [place], [place] | | | | | | [address] | | | | | | [phone] | | | | | | | [...] [facility] - | [address] | [place] [address] | | | IMMUNOGENETICS/TRANS | [address] [...] [facility] - | [address], | [place] [address] | | | IMMUNOGENETICS/TRANS | [address] [...] [facility] - | [address] | [place] [address] | | | IMMUNOGENETICS/TRANS | [address] | | | | [facility] | | | | + + + + + documented in this encounter Visit Diagnoses + + | Diagnosis | + + | End stage renal disease (HCC) End stage renal disease | + + documented in this encounter"
--- OUTSIDE RECORDS SUMMARY | ~2019-03-12 | XMS | Encounter Summary ---
Demographics + + + | Address | [address] | | | [place] [address] | + + + | Home Phone [...] Author | [facility] | | | and [place]ana | + + + | Organization | [facility] | [...] Team Providers + +------+ + | Care Padded Products Inspector Trimmer Name | Role | Phone | [...] | | [place], [place] | [place], [place] | | | | | [address] | [address] | | | | | [phone] | | | +--------+--------+ + + + [...] | | | | | [place] [address] | | | | | | [phone] | | | | | | | | +--------+---------+ + + + documented as of this encounter Visit Diagnoses Not on filedocumented in this encounter"
--- OUTSIDE RECORDS SUMMARY | ~2019-03-12 | XMS | Encounter Summary ---
Demographics + + + | Address | [address] | | | [place] [address] | + + + | Home Phone [...] Author | [facility] | | | and [place]ana | + + + | Organization | [facility] [...] Team Providers + +------+ + | Care Panama Hat Blocker Name | Role | Phone | [...] [address] [place] | [place] [address] | to return call to | | | | [address] | [phone] | complete intake | | | | [address] | | quest.) | | | | [phone] | | | +--------+ + + + [...] | | | | | | [place] [address] | | | | | | [phone] | | | | | | | | +--------+---------+ + + + documented as of this encounter Visit Diagnoses Not on filedocumented in this encounter"
--- OUTSIDE RECORDS SUMMARY | ~2019-03-12 | XMS | Encounter Summary ---
Demographics + + + | Address | [address] | | | [place] [address] | + + + | Home Phone [...] | | | | | [place] [address] | | + + + + + | Thania Mallory | ECON | [address] | | | | | [place] [address] | | + + + + + | Deidra Weldon | ECON | [address] | | | | | [place] | | | | | [address] | | + + + + + Care Team Providers + +------+ + | Care Heavy Duty Mechanic Farm Equipment Name | Role | Phone | [...] | | | | | [address] [place], | [place], [place] | | | | | [place] [address] | [address] | | | | | [phone] | | | +--------+ + + + [...] Denise | | | | | | [place] | | | | | | [address] | | | | | | [phone] | | | | | | | | +--------+ + + + + documented as of this encounter Visit Diagnoses Not on filedocumented in this encounter"
--- OUTSIDE RECORDS SUMMARY | ~2019-03-12 | XMS | Encounter Summary ---
Demographics + + + | Address | [address] | | | [place] [address] | + + + | Home Phone [...] | | | | | [place] [address] | | + + + + + | Thania Mallory | ECON | [address] | | | | | [place] [address] | | + + + + + | Deidra Weldon | ECON | [address] | | | | | [place] | | | | | [address] | | + + + + + Care Team Providers + +------+ + | Care Wig Maker Name | Role | Phone | [...] Shun | | | | | [address] | [facility] | | | | | [place], [place] | [place] [address] | | | | | [address] | [phone] | | | | | | | [...] [place] | | | | | | [address] | | | | | | [phone] | | | | | | | | +--------+ + + + + documented as of this encounter Visit Diagnoses Not on filedocumented in this encounter"
--- OUTSIDE RECORDS SUMMARY | ~2019-03-12 | XMS | Encounter Summary ---
Demographics + + + | Address | [address] | | | [place] [address] | + + + | Home Phone [...] | Author | [facility] | | | and Josephana | + + + | Organization | [facility] | [...] + +------+ + | Care Director Of Industrial Relations Name | Role | Phone | + +------+ + PCP | Unavailable | + +------+ + Encounter Details +--------+ + + + + | Date | Type | Department | Care Team | Description | +--------+ + + + + | 03/19/ | Hospital | [facility] | Bolivar Mcqueen MD | | | 2009 | Encounter | HOSPITAL EMERGENCY | | | | | | CENTER [address] | | | [address] [place], [place] | | | | | | [address] | | | | | | [phone] | | | +--------+ + + + [...] | | | | | [place] [address] | | | | | | [phone] | | | | | | | | +--------+---------+ + + + documented as of this encounter Visit Diagnoses Not on filedocumented in this encounter"
--- OUTSIDE RECORDS SUMMARY | ~2019-03-12 | XMS | Encounter Summary ---
Demographics + + + | Address | [address] | | | [place] [address] | + + + | Home Phone [...] Author | [facility] | | | and Josephana | + + + | Organization | [facility] | [...] Providers + +------+ + | Care Agriculture Scientist Name | Role | Phone | [...] NEPHROLOGY [address] | M, DO [address] | | | | | [address] | [place] | | | | | [place], [place] | [place], [place] | | | | | [address] | [address] | | | | | [phone] | | | +--------+ + + + [...] [place] | | | | | | [place] [address] | | | | | | [phone] | | | | | | | | +--------+---------+ + + + documented as of this encounter Visit Diagnoses Not on filedocumented in this encounter"
--- OUTSIDE RECORDS SUMMARY | ~2019-03-12 | XMS | Encounter Summary ---
Demographics + + + | Address | [address] | | | [place] [address] | + + + | Home Phone [...] + | Author | [facility] | | | and [place]ana | + + + | Organization | [facility] [...] Team Providers + +------+ + | Care Accounts Payable Associate Name | Role | Phone | [...] + + | 11/13/ | Telephone | [facility] | Silvia Rabago | DME (OXYGEN) | | 2019 | | [address] | | | | | [place] | | | | | | [address] | | | | | | [phone] | | | +--------+ + + + [...] [place] | | | | | | [facility] [address] | | | | | | [phone] | | | | | | | | +--------+---------+ + + + documented as of this encounter Visit Diagnoses Not on filedocumented in this encounter"
--- OUTSIDE RECORDS SUMMARY | ~2019-03-12 | XMS | Clinical Summary ---
Demographics + + + | Address | [address] | | | [place] [address] | + + + | Home Phone [...] | | | | | [place] [address] | | + + + + + | Thania Mallory | ECON | [address] | | | | | [place] [address] | | + + + + + | Deidra Weldon | ECON | [address] | | | | | [place], [place] | | | | | [address] | | + + + + + Care Team Providers + +------+ + | Care Legal Summer Intern Name | Role | Phone | + +------+ + | Jonathan Alonso MD | PCP | | + +------+ + Source Comments DANILO is fully live on both EpicCare Ambulatory and EpicCare InPatient.[facility] Allergies + + + + + [...] Denise | | | | | | [place], [place] | | | | | | [address] | | | | | | [phone] | | | | | | | [...] | | | | | | | [address] | | + +--------+ +--------+ + +--------+ | BANDAGE [employer]ER MEDICAID | BANDAGE MAKER | xxxxxxxx | Effect | | | [...] | RENAL | | for | | [place], | | | | RECIPI | | all | | [place] [address] | | | | ENT | | [...] | | al/Fam | | 1995 | [phone] | 3 [place] | | | [place] | | | 2 (Home) | 10000 | | | | | | [phone] | | | | | | | 0 (Work) | | + +--------+ +--------+ + + | CORY ALVES | Wanderbhavin | Mother | [birth year] | | [address] | | | l | | 190 | [phone] | 3 [place] | | | Gamal | | | 2 (Home) | [address] | | | g | | | | | + +--------+ +--------+ + +
--- OUTSIDE RECORDS SUMMARY | ~2019-03-12 | XMS | Encounter Summary ---
Demographics + + + | Address | [address] | | | [place] [address] | + + + | Home Phone [...] | | | | | [place] [address] | | + + + + + | Thania Mallory | ECON | [address] | | | | | [place] [address] | | + + + + + | Deidra Weldon | ECON | [address] | | | | | [place] | | | | | [address] | | + + + + + Care Team Providers + +------+ + | Care Salesperson Flowers Name | Role | Phone | + [...] | Nephrology at | MD Emanuel [address] [facility] | Recommendations | | | | [place] | Elias Caro | | | | | [facility] | [place], [place] | | | | | [address] | [address] | | | | | Mailcode: DCH7 | [phone] | | | | | Alexander | | | | | | [place], [place] | | | | | | [address] | | | | | | [phone] | | | +--------+ + + + [...] Denise | | | | | | [place] | | | | | | [address] | | | | | | [phone] | | | | | | | | +--------+ + + + + documented as of this encounter Visit Diagnoses Not on filedocumented in this encounter"
--- OUTSIDE RECORDS SUMMARY | ~2019-03-12 | XMS | Encounter Summary ---
Demographics + + + | Address | [address] | | | [place] [address] | + + + | Home Phone [...] | | | | | [place] [address] | | + + + + + | Thania Mallory | ECON | [address] | | | | | [place] [address] | | + + + + + | Deidra Weldon | ECON | [address] | | | | | [place] | | | | | [address] | | + + + + + Care Team Providers + +------+ + | Care Music Composition Teacher Name | Role | Phone | [...] 2005 | Registratio | Anil Elizondo | [phone] | | | | n | Rd Mailcode: [id number] | | | | | | [place], [place] | | | | | | [address] | | | | | | [phone] | | | +--------+ + + + [...] Denise | | | | | | [place], [place] | | | | | | [address] | | | | | | [phone] | | | | | | | [...] | [facility] | | | PATHOLOGY | [facility] | | DEPARTMENT | | [...] | | | | | | [facility], | | | | | | [place],labeled [place] | | | | | | kidney [...] number | | | | | | [id number]/lab | | | | | [...] wall | | | | | | ewukcuzhP2y: | | | | | | NegativeFibrinogen: [...] + + + + | [facility] | [address] | [place] [address] | | | PATHOLOGY | [place] | | | + + + + + | [facility] | [address] | [place] [address] | | | PATHOLOGY | [place] | | | + + + + + documented in this encounter Visit Diagnoses Not on filedocumented in this encounter"
--- OUTSIDE RECORDS SUMMARY | ~2019-03-12 | XMS | Encounter Summary ---
Demographics + + + | Address | [address] | | | [place] [address] | + + + | Home Phone [...] | | | | | [place] [address] | | + + + + + | Thania Mallory | ECON | [address] | | | | | [place] [address] | | + + + + + | Deidra Weldon | ECON | [address] | | | | | [place] | | | | | [address] | | + + + + + Care Team Providers + +------+ + | Care Waiter/Waitress Tavern Name | Role | Phone | + [...] | | | [address] | [facility] | | | | | [place], | [place], [place] | | | | | [place] [address] | [address] | | | | | [phone] | | | +--------+ + + + [...] Denise | | | | | | [place] | | | | | | [address] | | | | | | [phone] | | | | | | | | +--------+ + + + + documented as of this encounter Visit Diagnoses Not on filedocumented in this encounter"
--- OUTSIDE RECORDS SUMMARY | ~2019-03-12 | XMS | Encounter Summary ---
Demographics + + + | Address | [address] | | | [place] [address] | + + + | Home Phone [...] [facility] | | | and Josephana | + + + | Organization | [facility] | [...] Team Providers + +------+ + | Care Anesthesiologist Assistant Name | Role | Phone | [...] [address] | M, DO [address] | | | | | [address] | [place] | | | | | [place], [place] | [place], [place] | | | | | [address] | [address] | | | | | [phone] | | | +--------+ + + + [...] [place] | | | | | | [place] [address] | | | | | | [phone] | | | | | | | | +--------+---------+ + + + documented as of this encounter Visit Diagnoses Not on filedocumented in this encounter"
--- OUTSIDE RECORDS SUMMARY | ~2019-03-12 | XMS | Encounter Summary ---
Demographics + + + | Address | [address] | | | [place] [address] | + + + | Home Phone [...] + | Author | [facility] | | | and Josephana | + + + | Organization | [facility] | [...] Providers + +------+ + | Care Water Resource Project Manager Name | Role | Phone [...] | | stage renal | [address] | [address] [place] [address] | | | | | disease) | [address] [place] | [place] | | | | | ([facility]) | [address] | [address] [place] | | | | | Anemia in | [place], [place] | [place] | | | | | ESRD | [address] | [address] Phone: | | | | | (end-stage | Phone: | [phone] | | | | | renal | [phone] | Fax: | | | | | disease) | Fax: | [phone] | | | | | ([facility]) | [phone] | | | | | | Procedures | | | | | | | PA OFFICE | | | | | | [...] | | [address] | [place], [address] | disease) ([facility]) | | | | [place], [place] | [place], [place] | (Primary Dx); ESRD | | | | [address] | [address] | (end stage renal | | | | [phone] | | disease) ([facility]) | [...] review of her treatment data in [facility] EHR, BP appears stable at her [...] recheck her iron profile next [facility]. Plan: 1. Again, I counseled Dara [...] Will recheck her in 2 weeks. CC: [place] Joy MD, Renal Transplant Clinic, [facility] signed by Jorje Camp DO at [...] [place] | | | | | | [place] [address] | | | | | | [phone] | | | | | | | [...]
--- OUTSIDE RECORDS SUMMARY | ~2019-03-12 | XMS | Encounter Summary ---
Demographics + + + | Address | [address] | | | [place] [address] | + + + | Home Phone [...] | | | | | [place] [address] | | + + + + + | Thania Mallory | ECON | [address] | | | | | [place] [address] | | + + + + + | Deidra Weldon | ECON | [address] | | | | | [place] | | | | | [address] | | + + + + + Care Team Providers + +------+ + | Care Bulldozer Mechanic Name | Role | Phone | [...] | [address] [facility] | [facility] | (HCC) (Primary Dx) | | | | [address] | [place], [place] | | | | | Mailcode: UHS18 | [address] | | | | | [place], [place] | [phone] | | | | | [address] | | | | | | [phone] | | | +--------+---------+ + + + [...] a nutrition perspective. Argentina Mehta, MS, RD, QUENCHER OPERATOR, LD documented in this e ncounter Plan of Treatment +--------+ + + + + | Date | Type | Specialty | Care Team | Description | +--------+ + + + + | 05/04/ | Hospital | Adult Acute Care | El Starr MD | | | 2022 | Encounter | | [address] | | | | | | [place], [place] | | | | | | [address] | | | | | | [phone] | | | | | | | [...]
--- OUTSIDE RECORDS SUMMARY | ~2019-03-12 | XMS | Encounter Summary ---
Demographics + + + | Address | [address] | | | [place] [address] | + + + | Home Phone [...] | Author | [facility] | | | and Josephana | + + + | Organization | [facility] | [...] Providers + +------+ + | Care Product Test Engineer Name | Role | Phone [...] | Encounter | JOY | MD Emanuel [address] | | | | | DEPARTMENT [address] | [facility] | | | | | [address] | [place], [place] | | | | | [place], [place] | [address] | | | | | [address] | [phone] | | | | | [phone] | | | +--------+ + + + [...] [place] | | | | | | [place] [address] | | | | | | [phone] | | | | | | | | +--------+---------+ + + + documented as of this encounter Visit Diagnoses Not on filedocumented in this encounter"
--- OUTSIDE RECORDS SUMMARY | ~2019-03-12 | XMS | Encounter Summary ---
Demographics + + + | Address | [address] | | | [place] [address] | + + + | Home Phone [...] | | | | | [place] [address] | | + + + + + | Thania Mallory | ECON | [address] | | | | | [place] [address] | | + + + + + | Deidra Weldon | ECON | [address] | | | | | [place] | | | | | [address] | | + + + + + Care Team Providers + +------+ + | Care Cardiac Monitor Technician Name | Role | Phone | [...] potential | | | | [address] [place], | [place], [place] | donor/checking in | | | | [place] [address] | [address] | with SW) | | | | [phone] | | | +--------+ + + + [...] [place] | | | | | | [address] | | | | | | [phone] | | | | | | | | +--------+ + + + + documented as of this encounter Visit Diagnoses Not on filedocumented in this encounter"
--- OUTSIDE RECORDS SUMMARY | ~2019-03-12 | XMS | Encounter Summary ---
Demographics + + + | Address | [address] | | | [place] [address] | + + + | Home Phone [...] + | Author | [facility] | | | and [place]ana | + + + | Organization | [facility] | | [...] Providers + +------+ + | Care Check Cashier Name | Role | Phone | [...] | NEPHROLOGY [address] | [address] | | | | | [address] | [address] [place] | | | | | [place], [place] | [place] [address] | | | | | [address] | [phone] | | | | | [phone] | | | +--------+ + + + [...] verification form rec eived from Navin Casanova booth manager, [facility] regarding housing, do s: 12/08/16. Sent to [...] [place] | | | | | | [place] [address] | | | | | | [phone] | | | | | | | | +--------+---------+ + + + documented as of this encounter Visit Diagnoses Not on filedocumented in this encounter"
--- OUTSIDE RECORDS SUMMARY | ~2019-03-12 | XMS | Encounter Summary ---
Demographics + + + | Address | [address] | | | [place] [address] | + + + | Home Phone [...] Providers + +------+ + | Care Photographer Aerial Name | Role | Phone | + [...] | | [address] | [place], [address] | (Primary Dx); | | | | [place], [place] | [place], [place] | Anemia in ESRD | | | | [address] | [address] | (end-stage renal | | | | [phone] | | disease) ([facility]) | [...] into the vein Three times a w [place]. iron sucrose (VENOFER) 20 mg/mL injection Inject [...] the Nephrology Team in 2 weeks. CC: [place] Joy MD, [facility]al Trans[facility] Clinic, [facility] signed by Jorje Camp DO at [...] [place] | | | | | | [place] [address] | | | | | | [phone] | | | | | | | [...]
--- OUTSIDE RECORDS SUMMARY | ~2019-03-12 | XMS | Clinical Summary ---
Demographics + + + | Address | [address] | | | [place] [address] | + + + | Home Phone [...] | Author | [facility] [employer] (Historical as of | | | 10-20-18) | + + + | Organization | [facility] [employer] (Historical as of | | | 10-20-18) [...] Team Providers + +------+ + | Care Italian Tutor Name | Role | Phone | [...] | Left: | SYNOVIS | | | [id number] | | 0.8x8cm - [id number]: | | Arm | | | | [...] | | | COVIDIEN | | | [id number] | | 23cmExplanted: Qty: 1 on | | | | | | 3404 / | | 04/08/2014 | | | | | | | | | | | | | | /[id number] | | | | | | | [...] +------+-------+ + | MEDICARE | MEDICA | [id number] | | | [address] | | | RE | | | | [place] [address] | | | IP-OP | | | | | + +--------+ +------+-------+ + | MEDICAID | EASTER | [id number] | | | [address] | | | N | | | | [place] | | | [place] | | | | [address] | | | EMPLOYEE BENEFITS ATTORNEY | | | | | + +--------+ [...] | [place] | | | 1423 | [address] | + +--------+ +--------+ + +
--- OUTSIDE RECORDS SUMMARY | ~2019-03-12 | XMS | Encounter Summary ---
Demographics + + + | Address | [address] | | | [place] [address] | + + + | Home Phone [...] | | | | | [place] [address] | | + + + + + | Thania Mallory | ECON | [address] | | | | | [place] [address] | | + + + + + | Deidra Weldon | ECON | [address] | | | | | [place] | | | | | [address] | | + + + + + Care Team Providers + +------+ + | Care Money Laundering Investigator Name | Role | Phone | [...] | Nephrology at | MD Emanuel [address] [facility] | | | | | [place] | [facility] | | | | | [facility] | [place], [place] | | | | | [address] | [address] | | | | | Mailcode: DCH7 | [phone] | | | | | Alexander | | | | | | [place], [place] | | | | | | [address] | | | | | | [phone] | | | +--------+ + + + [...] Ave | | | | | | [place], [place] | | | | | | [address] | | | | | | [phone] | | | | | | | [...] | [address] | [place] [address] | [phone] | | HOSPITAL | | | | [...] [address] | [place] [address] | [phone] | | HOSPITAL | | | | [...] + + + + + | [facility] | [address] | [place] [address] | [phone] | | HOSPITAL | | | | [...] + + + + + | [facility] | [address] | [place] [address] | [phone] | | HOSPITAL | | | | [...] | [address] | [place] [address] | [phone] | | HOSPITAL | | | | [...] [address] | [place] [address] | [phone] | | HOSPITAL | | | | + + + + + documented in this encounter Visit Diagnoses Not on filedocumented in this encounter"
--- OUTSIDE RECORDS SUMMARY | ~2019-03-12 | XMS | Encounter Summary ---
Demographics + + + | Address | [address] | | | [place] [address] | + + + | Home Phone [...] | | | | | [place] [address] | | + + + + + | Thania Mallory | ECON | [address] | | | | | [place] [address] | | + + + + + | Deidra Weldon | ECON | [address] | | | | | [place] | | | | | [address] | | + + + + + Care Team Providers + +------+ + | Care Colored Leather Setter Name | Role | Phone | [...] [address] | | | | | | [address] | [place] | | | | | | [address] | [place], [place] | | | | | | [place] | [address] | | | | | | [place] | Phone: | | | | | | [address] | [phone] | | | | | | Phone: | | | | | | | [phone] | | | | | | | Fax: | | | | | | | [phone] | | +--------+--------+ + + + + Encounter Details +--------+---------+ + + + | Date | Type | Department | Care Team | Description | +--------+---------+ + + + | 05/11/ | Office | Specialty Clinics | Sudhakar Joy | [facility] | | 2015 | Visit | at [facility] [address] | [address] | ([facility] | | | | Notus Mailcode: | [address] | purpura) nephritis | | | | [facility] [address] | [place], [place] | (Primary Dx); Anemia | | | | [place], [place] | [address] | of chronic kidney | | | | [address] | [phone] | failure, stage 5 | | | | [phone] | | (HCC) | +--------+---------+ + + [...] 11:19 AM PSTKeep working on the lo [employer] phosphorus and financial plan See me [...] [address] Mail code [facility] [place], [place] [id number] Estrella Brennan MA - 05/12/2015 10:48 AM [...] Denise | | | | | | [place], [place] | | | | | | [address] | | | | | | [phone] | | | | | | | [...]
--- OUTSIDE RECORDS SUMMARY | ~2019-03-12 | XMS | Encounter Summary ---
Demographics + + + | Address | [address] | | | [place] [address] | + + + | Home Phone [...] | | | | | [place] [address] | | + + + + + | Thania Mallory | ECON | [address] | | | | | [place] [address] | | + + + + + | Deidra Weldon | ECON | [address] | | | | | [place] | | | | | [address] | | + + + + + Care Team Providers + +------+ + | Care Manager Research Name | Role | Phone | [...] [place] | | | | | | [address] | | | | | | [phone] | | | | | | | | +--------+ + + + + documented as of this encounter Visit Diagnoses Not on filedocumented in this encounter"
--- OUTSIDE RECORDS SUMMARY | ~2019-03-12 | XMS | Encounter Summary ---
Demographics + + + | Address | [address] | | | [place] [address] | + + + | Home Phone [...] | | | | | [place] [address] | | + + + + + | Thania Mallory | ECON | [address] | | | | | [place] [address] | | + + + + + | Deidra Weldon | ECON | [address] | | | | | [place] | | | | | [address] | | + + + + + Care Team Providers + +------+ + | Care Land Leases And Rentals Manager Name | Role | Phone | [...] | [address] | [facility] | | | | | [facility], | [place], [place] | | | | | [place] [address] | [address] | | | | | [phone] | | | +--------+ + + + [...] | | | | | | [place], [place] | | | | | | [address] | | | | | | [phone] | | | | | | | | +--------+ + + + + documented as of this encounter Visit Diagnoses Not on filedocumented in this encounter"
--- OUTSIDE RECORDS SUMMARY | ~2019-03-12 | XMS | Encounter Summary ---
Demographics + + + | Address | [address] | | | [place] [address] | + + + | Home Phone [...] Author | Merged With [facility] | | | and Josephana | + + + | Organization | Merged With [facility] [...] Providers + +------+ + | Care Banking And Finance Instructor Name | Role | Phone | [...] | | | | | | [place] | | | | | | | [...] + + | 02/24/ | Hospital | [facility] | Blake Chavarria | ESRD (end stage | | 2013 | Encounter | MED CTR OR INTRA OP | MD Antonieta, FACS 380 | renal disease) (FORMERLY [facility]) | | | | [address] | [facility]SHA [facility]ULL[facility] | (Primary Dx) | | | | [place] | [place] [address] | | | | | [address] | [phone] | | | | | [phone] | | | +--------+ + + + [...] might be different f rom the original. [facility] POST-OP INSTRUCTIONS: Arterio-Venous Fistula 1. Keep [...] may interact with prescription medicines or other bboi-ajl-jaiyuwy (OTC) drugs. The FDA recommends reading OTC medication labels careful ly to clearly understand the list of active ingredients, directions, and any precautions to help avoid taking too muchacetaminophen. If you have questions, ask your pharmacist or [facility] care provider. Managing Nausea Some people [...] or skin changes (rash, itching, or hives). 0045-4994 [employer]. [address] [place] [address], [place] [address]. All righ ts reserved. This information is [...] [place] | | | | | | [place] [address] | | | | | | [phone] | | | | | | | [...] mL/min/1.73m2 | [facility] | | | SALVADOREAN | (<18). | | MEDICAL | | [...] + | [facility] | [address] | [place], [place] | [phone] | | [facility] | | [address] | | | - LABORATORY | | | | + + + + + | [facility] | [address] | [place], [place] | | | [facility] | | [address] | | | - LABORATORY | | [...]
--- OUTSIDE RECORDS SUMMARY | ~2019-03-12 | XMS | Encounter Summary ---
Demographics + + + | Address | [address] | | | [place] [address] | + + + | Home Phone [...] | | | | | [place] [address] | | + + + + + | Thania Mallory | ECON | [address] | | | | | [place] [address] | | + + + + + | Deidra Weldon | ECON | [address] | | | | | [place] | | | | | [address] | | + + + + + Care Team Providers + +------+ + | Care Egg Breaker Name | Role | Phone | + [...] | | | | [address] [place], | [place], [place] | | | | | [place] [address] | [address] | | | | | [phone] | | | +--------+ + + + [...] Denise | | | | | | [place], [place] | | | | | | [address] | | | | | | [phone] | | | | | | | | +--------+ + + + + documented as of this encounter Visit Diagnoses Not on filedocumented in this encounter"
--- OUTSIDE RECORDS SUMMARY | ~2019-03-12 | XMS | Encounter Summary ---
Demographics + + + | Address | [address] | | | [place] [address] | + + + | Home Phone [...] + | Author | [facility] | | | and Josephana | + + + | Organization | [facility] [...] Team Providers + +------+ + | Care Vacuum Truck Driver Name | Role | Phone [...] NEPHROLOGY [address] | MD [address] | | | | | [address] | [address] [place] | | | | | [place], [place] | [place] [address] | | | | | [address] | [phone] | | | | | [phone] | | | +--------+ + + + [...] DAV[place]SON | | | | | | [place] [address] | | | | | | [phone] | | | | | | | | +--------+---------+ + + + documented as of this encounter Visit Diagnoses Not on filedocumented in this encounter"
--- OUTSIDE RECORDS SUMMARY | ~2019-03-12 | XMS | Encounter Summary ---
Demographics + + + | Address | [address] [place] [address] | | | [place] [address] | + + + | Home Phone [...] | | | | | [place] [address] | | + + + + + | Thania Mallory | ECON | [address] | | | | | [place] [address] | | + + + + + | Deidra Weldon | ECON | [address] | | | | | [place] | | | | | [address] | | + + + + + Care Team Providers + +------+ + | Care Spectacle Truer Name | Role | Phone | + [...] [facility] | | | | | [address] [place], | [place], [place] | | | | | [place] [address] | [address] | | | | | [phone] | | | +--------+ + + + [...] Denise | | | | | | [place] | | | | | | [address] | | | | | | [phone] | | | | | | | | +--------+ + + + + documented as of this encounter Visit Diagnoses Not on filedocumented in this encounter"
--- OUTSIDE RECORDS SUMMARY | ~2019-03-12 | XMS | Encounter Summary ---
Demographics + + + | Address | [address] | | | [place] [address] | + + + | Home Phone [...] | | | | | [place] [address] | | + + + + + | Thania Mallory | ECON | [address] | | | | | [place] [address] | | + + + + + | Deidra Weldon | ECON | [address] | | | | | [place] | | | | | [address] | | + + + + + Care Team Providers + +------+ + | Care Computer Systems Auditor Name | Role | Phone | + +------+ + | Shahid Camargo MD | PCP | | + +------+ + Encounter Details +--------+------+ + + + | Date | Type | Department | Care Team | Description | +--------+------+ + + + | 12/20/ | Lab | [facility] Center at [facility] | | Allergic purpura- | | 2012 | | 7th Floor [address] | | MEDICARE [address] | | | | [address] [place], | | (Primary Dx) | | | | [place] [address] | | | | | | [phone] | | | +--------+------+ + + + [...] Denise | | | | | | [place], [place] | | | | | | [address] | | | | | | [phone] | | | | | | | [...] - | [address] | [place], [place] | | | IMMUNOGENETICS/TRANS | Suite [...] - | [address] | [place], [place] | | | IMMUNOGENETICS/TRANS | Suite [...] | [facility] - | [address] | [place] [address] | | | IMMUNOGENETICS/TRANS | [address] [...] [facility] - | [address], | [place] [address] | | | IMMUNOGENETICS/TRANS | [address] [...] [facility] - | [address] | [place] [address] | | | IMMUNOGENETICS/TRANS | [address] [...] - | [address] | [place], [place] | | | IMMUNOGENETICS/TRANS | [address] [...] - | [address] | [place], [place] | | | IMMUNOGENETICS/TRANS | Suite [...] [facility] - | [address] | [place] [address] | | | IMMUNOGENETICS/TRANS | [address] [...] + + | [facility] - | [address] | [place] [address] | | | IMMUNOGENETICS/TRANS | [address] [...] | + + + + + | [facility] | [address] | [place] [address] | | | SERVICES, | [address] [...] [facility] | [address] | [place] [address] | | | SERVICES, | [address] [...] | + + + + + | [facility] | [address] | [place] [address] | | | SERVICES, CORE | PARK [...] UNIV | | | | Pippa Sauceda, [facility] | | PTH - INTFC | | | | [address] | | | | | | [phone]. | | | | | | Faisal [...] [facility] | [address] | [place], [place] | | | UNIV PTH - INTFC | | [address] | | + + + + + [...] + | [facility] | [address] | [place] [address] | | | SERVICES, HOMERO | PARK [...] | + + + + + | [facility] | [address] | [place] [address] | | | SERVICES, CORE | LONG [...] + | [facility] - | [address] | [place] [address] | | | [place] | | | [...] [facility] | [address] | [place] [address] | | | SERVICES, CORE | PARK [...] [facility] | [address] | [place] [address] | | | SERVICES, CORE | PARK [...] | + + + + + | [facility] | [address] | [place] [address] | | | SERVICES, CORE | PARK [...] + | [facility] - | [address] | [place] [address] | | | [place] | | | [...] at: | | | | | | http://www.cdc.gov/nchstp/tb/pubs/tbfactssheets/322692.htm | | | Test performed by: [facility] [address] | | [address] [place] [place] [address] | | + + + + + [...] [facility] | [address] | [place] [address] | | | SERVICES, SPECIAL | PARK [...] gene at | DIAGNOSTIC | | nucleotide 25314. Please note that this assay only detects the | LABORATORIES | | [id number] point mutation and therefore a normal result [...] has been analyzed for the presence of [id number] | | | mutation in the prothrombin [...] | | Heterozygotes for the common prothrombin [id number] mutation constitute | | | approximately 2% of the normal white population (1,2). | | | References: 1.) Poort et al. Blood 88, 8311-1479 (1996). 2.) Ricardo | | | et al. Circulation 99, 999-1004 (1998). 3.) Al Montalvo, and | | | Press. Amer J Clin Path 155, 439-47 (2000). This test was | | | developed and its performance characteristics determined by the [facility] | | | [facility]. It has | | | not been cleared or approved by the Food and Drug Administration. | | | FDA approval is not required for clinical use of this test, and | | | therefore validation was done as required under the requirements of | | | the Clinical Laboratory Improvement Act of 1988. The [facility] | | | Diagnostic Laboratories Molecular Diagnostic [...] + + + | [facility] | [address] | [place] [address] | | | DIAGNOSTIC | [address] [...] [facility] | [address] | [place] [address] | | | SERVICES, CORE | PARK [...] | + + + + + | [facility] | [address] | [place] [address] | | | SERVICES, CORE | LONG [...] [facility] | [address] | [place] [address] | | | SERVICES, CORE | PARK [...] + | [facility] | [address] | [place] [address] | | | SERVICES, HOMERO | LONG [...] | | | | | | Laboratories,[address] | | | | | | Rajendra, [facility] [address] | | | | | | [phone]. | | | | | | Faisal [...] [facility] | [address] | [place], [place] | | | UNIV PTH - INTFC | | [address] | | + + + + + [...] + | [facility] | [address] | [place] [address] | | | SERVICES, SPECIAL | PARK [...] C PCR, | Undetected | IU/mL | [facility] | | | QUANT | | | [...] + + + + | [facility] | [address], | [place] [address] | | | DIAGNOSTIC | [address] [...] + | [facility] - | [address] | [place] [address] | | | [place] | | | [...] + | [facility] - | [address] | [place] [address] | | | [place] | | | [...] + | [facility] - | [address] | [place] [address] | | | [place] | | | [...] + | [facility] - | [address] | [place] [address] | | | [facility] | | | | + + [...] less......Not | | | | | | Sgueevqt04.0-21.9 | | | | | | U/mL.........Indetermina [...] available | | | | | | [email or web address] | | | | | | vdx.Performed by [facility] | | | | | | Laboratories,[address] [facility] [address] | | | | | | Rajendra [facility] [address] | | | | | | [phone].[employer] Document Solutionslab. | | | | | | [...] [facility] | [address] | [place], [place] | | | UNIV PTH - INTFC | | [address] | | + + + + [...] | | | Final CULTURE | | [facility] | | | | RESULT:No [...] + | [facility] - | [address] | [place] [address] | | | [place] | | | | + + + [...] + | [facility] | [address] | [place] [address] | | | SERVICES, CORE | PARK [...] by | | | | | | E[address]on,[address] | | | | | | iPppa Sauceda, [facility] | | | | | | [address] | | | | | | [phone].[employer] Document Solutionslab. 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
--- OUTSIDE RECORDS SUMMARY | ~2019-03-12 | XMS | Encounter Summary ---
Demographics + + + | Address | [address] [place] [address] | | | [place] [address] | + + + | Home Phone [...] | | | | | [place] [address] | | + + + + + | Thania Mallory | ECON | [address] | | | | | [place] [address] | | + + + + + | Deidra Weldon | ECON | [address] | | | | | [place] | | | | | [address] | | + + + + + Care Team Providers + +------+ + | Care Bodywork Therapist Name | Role | Phone | [...] | | | ([facility]) | Caro Chan | [place], | | | | | Allergic | [place], [place] | [place] | | | | | purpura | [address] | [address] | | | | | ([facility]) | Phone: | Phone: | | | | | | [phone] | [phone] | | | | | | Fax: | Fax: | | | | | | [phone] | [phone] | +--------+--------+ + + + + Encounter Details +--------+---------+ + + + | Date | Type | Department | Care Team | Description | +--------+---------+ + + + | 12/19/ | Office | Kidney Transplant | Clinic, Ltx 3[address] | Patient on | | 2012 | Visit | at Physician's | [facility] | peritoneal dialysis | | | | [address] [place], [place] | (HCC) (Primary Dx); | | | | [address] | [address] | Unspecified | | | | Mailcode: L590 | | essential | | | | [facility] | | hypertension; 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 El Starr MD wood tool maker, Division of Abdominal Organ Transplantation Professor of Urology CC: Sudhakar Joy MD [address] [place] [address] documented in this encoun ter Plan of Treatment +--------+ + + + + | Date | Type | Specialty | Care Team | Description | +--------+ + + + + | 05/04/ | Hospital | Adult Acute Care | El Starr MD | | | 2022 | Encounter | | [address] | | | | | | [place], [place] | | | | | | [address] | | | | | | [phone] | | | | | | | [...]
--- OUTSIDE RECORDS SUMMARY | ~2019-03-12 | XMS | Encounter Summary ---
Demographics + + + | Address | [address] | | | [place] [address] | + + + | Home Phone [...] + + + | Author | and [facility] | | | and Josephana | + + + | Organization | and [facility] | | | and Josephana | [...] Providers + +------+ + | Care Civil Engineering Project Manager Name | Role | Phone [...] | | | | [address] End | [place], [place] | [place], [place] | | | | | stage renal | [address] | [address] Phone: | | | | | disease | Phone: | [phone] | | | | | ([facility]) | [phone] | Fax: | | | | | Infection | Fax: | [phone] | | | | | and | [phone] | | | | | | inflammatory [...] | | [address] | [place], [address] | (Primary Dx); | | | | [place], [place] | [place], [place] | Anemia in ESRD | | | | [address] | [address] | (end-stage renal | | | | [phone] | | disease) ([facility]) | [...] There fore she has had construction of bishop paiute radio cephalic fistula in her left arm [...] Chavarria's help with her permanent AVF. C: [place] Fina Joy MD, [facility], [facility] documented in thi s encounter Plan of Treatment +--------+---------+ + + + | Date | Type | Specialty | Care Team | Description | +--------+---------+ + + + | 04/18/ | Office | Pulmonology | Denny Alexander | | | 2019 | Visit | | Deny Briggs MD [address] | | | | | | [address] [place] | | | | | | [place] [address] | | | | | | [phone] | | | | | | | [...]
--- OUTSIDE RECORDS SUMMARY | ~2019-03-12 | XMS | Encounter Summary ---
Demographics + + + | Address | [address] | | | [place] [address] | + + + | Home Phone [...] Author | [facility] | | | and Josephana | + + + | Organization | [facility] [...] Providers + +------+ + | Care Food Checkers And Cashiers Supervisor Name | Role | Phone | [...] NEPHROLOGY [address] | M, DO [address] | | | | | [address] | [place], [address] | | | | | [place], [place] | [place], [place] | | | | | [address] | [address] | | | | | [phone] | | | +--------+ + + + [...] repeatedly declines. The entire dialysis team including general lithographic worker have had mult iple conversations with [...] attempt to continue to make efforts to counseling case manager her about lifestyle modification an d compliance [...] [address] | | | | | | [place] [address] | | | | | | [phone] | | | | | | | | +--------+---------+ + + + documented as of this encounter Visit Diagnoses Not on filedocumented in this encounter"
--- OUTSIDE RECORDS SUMMARY | ~2019-03-12 | XMS | Encounter Summary ---
Demographics + + + | Address | [address] [place] [address] | | | [place] [address] | + + + | Home Phone [...] | | | | | [place] [address] | | + + + + + | Thania Mallory | ECON | [address] | | | | | [place] [address] | | + + + + + | Deidra Weldon | ECON | [address] | | | | | [place] | | | | | [address] | | + + + + + Care Team Providers + +------+ + | Care Band And Cuff Cutter Name | Role | Phone | [...] | Nephrology at | MD Emanuel [address] [facility] | | | | | Alexander | [facility] | | | | | [facility] | [place], [place] | | | | | [address] [facility] | [address] | | | | | Mailcode: DCH7 | [phone] | | | | | Alexander | | | | | | [place], [place] | | | | | | [address] | | | | | | [phone] | | | +--------+ + + + [...] Ave | | | | | | [place], [place] | | | | | | [address] | | | | | | [phone] | | | | | | | [...] [address] | [place] [address] | [phone] | | HOSPITAL | | | | [...] | [address] | [place] [address] | [phone] | | HOSPITAL | | | | + + + + + documented in this encounter Visit Diagnoses Not on filedocumented in this encounter"
--- OUTSIDE RECORDS SUMMARY | ~2019-03-12 | XMS | Encounter Summary ---
Demographics + + + | Address | [address] | | | [place] [address] | + + + | Home Phone [...] Author | [facility] | | | and Josephana | + + + | Organization | [facility] [...] Providers + +------+ + | Care Manager Division Name | Role | Phone | + [...] | NEPHROLOGY [address] [place] | renal disease) ([facility]) | | | | [address] | [address] [place] | (Primary Dx); | | | | [place], [place] | [place] [address] | Secondary | | | | [address] | [phone] | hyperparathyroidism | | | | [phone] | | ([facility]); | | | | | | Hyperphosphatemia [...] [place] | | | | | | [place] [address] | | | | | | [phone] | | | | | | | [...]
--- OUTSIDE RECORDS SUMMARY | ~2019-03-12 | XMS | Encounter Summary ---
Demographics + + + | Address | [address] | | | [place] [address] | + + + | Home Phone [...] | | | | | [place] [address] | | + + + + + | Thania Mallory | ECON | [address] | | | | | [place] [address] | | + + + + + | Deidra Weldon | ECON | [address] | | | | | [place] | | | | | [address] | | + + + + + Care Team Providers + +------+ + | Care Recreational Counselor Name | Role | Phone | [...] | | | [address] | [facility] | | | | | [place], | [place], [place] | | | | | [place] [address] | [address] | | | | | [phone] | [phone] | | | | | | | [...] Denise | | | | | | [place] | | | | | | [address] | | | | | | [phone] | | | | | | | | +--------+ + + + + documented as of this encounter Visit Diagnoses Not on filedocumented in this encounter"
--- OUTSIDE RECORDS SUMMARY | ~2019-03-12 | XMS | Encounter Summary ---
Demographics + + + | Address | [address] | | | [place] [address] | + + + | Home Phone [...] Author | [facility] | | | and Josephana | + + + | Organization | [facility] | [...] Providers + +------+ + | Care Glaze Sprayer Name | Role | Phone | [...] | | KIDNEY TRANSPLANT | [address] [place], | | | | | [address] | [place] [address] | | | | | [address] [place] | [phone] | | | | | [address] | | | | | | [phone] | | | +--------+ + + + [...] I also called the Fina Sparrow social science teacher, and let her know t hat Dara [...] | | | | | [place] [address] | | | | | | [phone] | | | | | | | | +--------+---------+ + + + documented as of this encounter Visit Diagnoses Not on filedocumented in this encounter"
--- OUTSIDE RECORDS SUMMARY | ~2019-03-12 | XMS | Encounter Summary ---
Demographics + + + | Address | [address] | | | [place] [address] | + + + | Home Phone [...] | | | | | [place] [address] | | + + + + + | Thania Mallory | ECON | [address] | | | | | [place] [address] | | + + + + + | Deidra Weldon | ECON | [address] | | | | | [place] | | | | | [address] | | + + + + + Care Team Providers + +------+ + | Care Indoor Sports Centre Manager Name | Role | Phone [...] [address] | [facility] | screens) | | | | [address] [employer], | [place], [place] | | | | | [place] [address] | [address] | | | | | [phone] | | | +--------+ + + + [...] Denise | | | | | | [employer] [place] [employer] | | | | | | [address] | | | | | | [phone] | | | | | | | | +--------+ + + + + documented as of this encounter Visit Diagnoses Not on filedocumented in this encounter"
--- OUTSIDE RECORDS SUMMARY | ~2019-03-12 | XMS | Encounter Summary ---
[...] | Author | [facility] | | | and Josephana | + + + | Organization | [facility] | | | and Josephana [...] Team Providers + +------+ + | Care Global Implementation Manager Name | Role | Phone | [...] NEPHROLOGY [address] | M, DO [address] [place] | | | | | [address] | [place], [address] | | | | | [place], [place] | [place], [place] | | | | | [address] | [address] | | | | | [phone] | | | +--------+ + + + [...] through the Nephrology Se ction at either [facility] or [facility]? 6. Anemia--will continue the EPO at current dose and recheck the Fe stores next quarter. Plan: 1. Her PTH appears stable on a minimal dose of Hectorol. 2. Will continue to monitor her BP closely. 3. She appears very cooperative and collegial here in clinic. CC: [place] Fina documented in thi s encounter Plan [...] [place] | | | | | | [place] [address] | | | | | | [phone] | | | | | | | | +--------+---------+ + + + documented as of this encounter Visit Diagnoses Not on filedocumented in this encounter"
--- OUTSIDE RECORDS SUMMARY | ~2019-03-12 | XMS | Encounter Summary ---
Demographics + + + | Address | [address] | | | [place] [address] | + + + | Home Phone [...] Author | [facility] | | | and Josephana | + + + | Organization | [facility] [...] Team Providers + +------+ + | Care Men'S Swim Coach Name | Role | Phone | [...] + + | 11/12/ | Telephone | [facility] | Silvia Rabago | DME (carlie, cmn, | | 2018 | | [address] | ABRIL Hernandez | [employer]) | | | | [place] | | | | | | [address] | | | | | | [phone] | | | +--------+ + + + [...] | | | | | [place] [address] | | | | | | [phone] | | | | | | | | +--------+---------+ + + + documented as of this encounter Visit Diagnoses Not on filedocumented in this encounter"
--- OUTSIDE RECORDS SUMMARY | ~2019-03-12 | XMS | Encounter Summary ---
Demographics + + + | Address | [address] | | | [place] [address] | + + + | Home Phone [...] | Author | [facility] | | | and Josephana | + + + | Organization | [facility] | [...] Providers + +------+ + | Care Safety Scientist Name | Role | Phone | + +------+ + PCP | Unavailable | + +------+ + Encounter Details +--------+ + + + + | Date | Type | Department | Care Team | Description | +--------+ + + + + | 07/31/ | Hospital | [facility] | Conversion | ESRD (end stage | | 2015 | Encounter | CENTER CV INTRA OP | Transaction, | renal disease) (HCC) | | | | [address] | Provider Unknown | | | | | [place], [place] | [phone] | | | | | [address] | | | | | | [phone] | Colten Hutchins MD | | | | | | [address] | | | | | | [place], [place] | | | | | | [address] | | | | | | | [...] 07/31/141620 Date of Service: 07/31/141619 Status: Signed Title I Instructional Assistant: Mervat Harden RN (Registered Nurse) Pt meets d/c criteria. Site c/d/i and soft. Mother providing transportation home. Mervat Harden RN onver arturo Transaction, Provider Unknown - 07/31/2014 3:52 PM PDT Progress Notes by Mervat Harden RN at 07/31/141551 Author: Mervat Harden RN Service: (none) Author Type: Registered Nurse Filed: 07/31/14 9578 Date of Service: 07/31/141551 Status: Signed Title I Instructional Assistant: Mervat Harden RN (Registered Nurse) Pt tolerated [...] [place] | | | | | | [place] [address] | | | | | | [phone] | | | | | | | [...] this | | | patient in the Web Design Specialist holding area. I had a discussion [...] met this patient | | in the Web Design Specialist holding area. I had a discussion [...]
--- OUTSIDE RECORDS SUMMARY | ~2019-03-12 | XMS | Encounter Summary ---
Demographics + + + | Address | [address] | | | [place] [address] | + + + | Home Phone [...] Author | [facility] | | | and Josephana | + + + | Organization | [facility] | [...] Team Providers + +------+ + | Care Saturator Operator Name | Role | Phone | [...] + + | 11/13/ | Telephone | [facility] | Silvia Rabago | DME (OXYGEN) | | 2019 | | [address] | | | | | [place] | | | | | | [address] | | | | | | [phone] | | | +--------+ + + + [...] [place] | | | | | | [facility] [address] | | | | | | [phone] | | | | | | | | +--------+---------+ + + + documented as of this encounter Visit Diagnoses Not on filedocumented in this encounter"
--- OUTSIDE RECORDS SUMMARY | ~2019-03-12 | XMS | Encounter Summary ---
Demographics + + + | Address | [address] | | | [place] [address] | + + + | Home Phone [...] Author | [facility] | | | and Josephana | + + + | Organization | [facility] | [...] Team Providers + +------+ + | Care Magisterial District Judge Name | Role | Phone | + +------+ + PCP | Unavailable | + +------+ + Encounter Details +--------+ + + + + | Date | Type | Department | Care Team | Description | +--------+ + + + + | 05/29/ | Hospital | [facility] | Conversion | End stage renal | | 2014 | Encounter | CENTER CV INTRA OP | Transaction, | disease (HCC) | | | | [address] | Provider Unknown | | | | | [place], [place] | [phone] | | | | | [address] | | | | | | [phone] | Natashakirit Darryn, | | | | | | MD [address] | | | | | | [place], [place] | | | | | | [address] | | | | | | | [...] [place] | | | | | | [place] [address] | | | | | | [phone] | | | | | | | [...] EXTERNAL LAB | | Testing performed at [facility];[address] [place] [address];[place] [address] MRSA PCR | | | NEGATIVE Testing performed at | | | [address];[place] [address] | | + + + + +---------+ [...]
--- OUTSIDE RECORDS SUMMARY | ~2019-03-12 | XMS | Encounter Summary ---
Demographics + + + | Address | [address] | | | [place] [address] | + + + | Home Phone [...] | | | | | [place] [address] | | + + + + + | Thania Mallory | ECON | [address] | | | | | [place] [address] | | + + + + + | Deidra Weldon | ECON | [address] | | | | | [place] | | | | | [address] | | + + + + + Care Team Providers + +------+ + | Care Director East Coast Sales Name | Role | Phone | [...] pt's | | | | Caro [place], | [place], [place] | support plan & | | | | [place] [address] | [address] | social changes) | | | | [phone] | | | +--------+ + + + [...] | | | | | | [place], [place] | | | | | | [address] | | | | | | [phone] | | | | | | | | +--------+ + + + + documented as of this encounter Visit Diagnoses Not on filedocumented in this encounter"
--- OUTSIDE RECORDS SUMMARY | ~2019-03-12 | XMS | Encounter Summary ---
Demographics + + + | Address | [address] | | | [place] [address] | + + + | Home Phone [...] | | | | | [place] [address] | | + + + + + | Thania Mallory | ECON | [address] | | | | | [place] [address] | | + + + + + | Deidra Weldon | ECON | [address] | | | | | [place] | | | | | [address] | | + + + + + Care Team Providers + +------+ + | Care Senior Android Software Engineer Name | Role | Phone [...] | | | | Caro Chan [place], | [place], [place] | psychosocial goals | | | | [place] [address] | [address] | related to listing | | | | [phone] | | status) | +--------+ + + [...] Denise | | | | | | [place], [place] | | | | | | [address] | | | | | | [phone] | | | | | | | | +--------+ + + + + documented as of this encounter Visit Diagnoses Not on filedocumented in this encounter"
--- OUTSIDE RECORDS SUMMARY | ~2019-03-12 | XMS | Encounter Summary ---
Demographics + + + | Address | [address] | | | [place] [address] | + + + | Home Phone [...] | | | | | [place] [address] | | + + + + + | Thania Mallory | ECON | [address] | | | | | [place] [address] | | + + + + + | Deidra Weldon | ECON | [address] | | | | | [place] | | | | | [address] | | + + + + + Care Team Providers + +------+ + | Care Drafter Heating And Ventilating Name | Role | Phone | + +------+ + | Shahid Camargo MD | PCP | | + +------+ + Encounter Details +--------+------+ + + + | Date | Type | Department | Care Team | Description | +--------+------+ + + + | 12/20/ | Lab | Lab Center at [facility] | | Allergic purpura- | | 2012 | | 7th Floor [address] | | MEDICARE [address] | | | | [address] [place], | | (Primary Dx) | | | | [place] [address] | | | | | | [phone] | | | +--------+------+ + + + [...] Denise | | | | | | [place], [place] | | | | | | [address] | | | | | | [phone] | | | | | | | [...] - | [address] | [place], [place] | | | IMMUNOGENETICS/TRANS | Suite [...] - | [address] | [place], [place] | | | IMMUNOGENETICS/TRANS | Suite [...] | [facility] - | [address] | [place] [address] | | | IMMUNOGENETICS/TRANS | [address] [...] [facility] - | [address] | [place] [address] | | | IMMUNOGENETICS/TRANS | [address] [...] [facility] - | [address] | [place] [address] | | | IMMUNOGENETICS/TRANS | [address] [...] - | [address] | [place], [place] | | | IMMUNOGENETICS/TRANS | [address] [...] - | [address] | [place], [place] | | | IMMUNOGENETICS/TRANS | [address] [...] [facility] - | [address] | [place] [address] | | | IMMUNOGENETICS/TRANS | [address] [...] + + | [facility] - | [address] | [place] [address] | | | IMMUNOGENETICS/TRANS | [address] [...] | [facility] | [address] | [place] [address] | | | SERVICES, | [address] [...] [facility] | [address] | [place] [address] | | | SERVICES, | [address] [...] | [facility] | [address] | [place] [address] | | | SERVICES, CORE | PARK [...] UNIV | | | | Pippa Sauceda, [employer] | | PTH - INTFC | | | | [address] | | | | | | [phone].[email or web address]. | | | | | | Faisal [...] [facility] | [address] | [place], [place] | | | UNIV PTH - INTFC | | [address] | | + + + + + [...] + + + + + | [facility] | [address] | [place] [address] | | | SERVICES, HOMERO | PARK [...] | [facility] | [address] | [place] [address] | | | SERVICES, CORE | LONG [...] + | [facility] | [address] | [place] [address] | | | [place] | | | [...] [facility] | [address] | [place] [address] | | | SERVICES, CORE | PARK [...] [facility] | [address] | [place] [address] | | | SERVICES, CORE | PARK [...] | [facility] | [address] | [place] [address] | | | SERVICES, CORE | PARK [...] + | [facility] - | [address] | [place] [address] | | | [place] | | | [...] at: | | | | | | http://www.cdc.gov/nchstp/tb/pubs/tbfactssheets/072497.htm | | | Test performed by: [facility] [address] | | [address] [place] [place] [address] | | + + + + + [...] [facility] | [address] | [place] [address] | | | SERVICES, SPECIAL | PARK [...] gene at | DIAGNOSTIC | | nucleotide 58439. Please note that this assay only detects the | LABORATORIES | | [id number] point mutation and therefore a normal result [...] has been analyzed for the presence of [id number] | | | mutation in the prothrombin [...] | | Heterozygotes for the common prothrombin C84324P mutation constitute | | | approximately 2% of the normal white population (1,2). | | | References: 1.) Poort et al. Blood 88, 4831-4032 (1996). 2.) Ricardo | | | et al. Circulation 99, 999-1004 (1998). 3.) Al Montalvo, and | | | Press. Amer J Clin Path 155, 439-47 (2000). This test was | | | developed and its performance characteristics determined by the [facility] | | | [facility]. It has | | | not been cleared or approved by the Food and Drug Administration. | | | FDA approval is not required for clinical use of this test, and | | | therefore validation was done as required under the requirements of | | | the Clinical Laboratory Improvement Act of 1988. The [facility] | | | [facility] is a fully | | | licensed and/or accredited clinical laboratory under CLIA, CAP, and | | | the [facility]. Please note that our lab now [...] + + | Performing | Address | City/State/[facility] | Phone Number | | Organization | | | | + + + + + | [facility] | [address] | [place] [address] | | | DIAGNOSTIC | [address] [...] [facility] | [address] | [place] [address] | | | SERVICES, CORE | PARK [...] | [facility] | [address] | [place] [address] | | | SERVICES, CORE | LONG [...] [facility] | [address] | [place] [address] | | | SERVICES, CORE | PARK [...] + + + + + | [facility] | [address] | [place] [address] | | | SERVICES, HOMERO | LONG [...] | | | | | | Laboratories,[address] | | | | | | Rajendra, [employer] [address] | | | | | | [phone].[email or web address]. | | | | | | Faisal [...] [facility] | [address] | [place], [place] | | | UNIV PTH - INTFC | | [address] | | + + + + + [...] + + + + + | [facility] | [address] | [place] [address] | | | SERVICES, SPECIAL | PARK [...] C PCR, | Undetected | IU/mL | [facility] | | | QUANT | | | [...] + + + + | [facility] | [address], | [place] [address] | | | DIAGNOSTIC | [address] [...] + | [facility] - | [address] | [place] [address] | | | [place] | | | [...] + | [facility] - | [address] | [place] [address] | | | [place] | | | [...] + | [facility] - | [address] | [place] [address] | | | [place] | | | [...] + | [facility] - | [address] | [place] [address] | | | [facility] | | | | + + + [...] less......Not | | | | | | Mmljauky80.0-21.9 | | | | | | U/mL.........Indetermina [...] available | | | | | | [email or web address] | | | | | | vdx.Performed by [facility] | | | | | | Laboratories,[address] | | | | | | Rajendra [employer] [place] [address] | | | | | | [phone].[email or web address]. | | | | | | Faisal [...] [facility] | [address] | [place], [place] | | | UNIV PTH - INTFC | | [address] | | + + + + + [...] | | | Final CULTURE | | [facility] | | | | RESULT:No growth [...] + | [facility] - | [address] | [place] [address] | | | [place] | | | | + + + [...] + + + + + | [facility] | [address] | [place] [address] | | | SERVICES, CORE | PARK [...] by | | | | | | [employer],[address] | | | | | | Pippa Sauceda, [employer] | | | | | | [address] | | | | | | [phone].[email or web address]. 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
--- OUTSIDE RECORDS SUMMARY | ~2019-03-12 | XMS | Encounter Summary ---
Demographics + + + | Address | [address] | | | [place] [address] | + + + | Home Phone [...] | Author | [facility] | | | and Josephana | + + + | Organization | [facility] | [...] + | 11/15/ | Telephone | [facility] | George Torres RN | Lab Results | | 2019 | | [address] | | (Cytology report) | | | | [place] | | | | | | [address] | | | | | | [phone] | | | +--------+ + + + [...] | | | | | [place] [address] | | | | | | [phone] | | | | | | | | +--------+---------+ + + + documented as of this encounter Visit Diagnoses Not on filedocumented in this encounter"
--- OUTSIDE RECORDS SUMMARY | ~2019-03-12 | XMS | Encounter Summary ---
Demographics + + + | Address | [address] | | | [place] [address] | + + + | Home Phone [...] | | | | | [place] [address] | | + + + + + | Thania Mallory | ECON | [address] | | | | | [place] [address] | | + + + + + | Deidra Weldon | ECON | [address] | | | | | [place] | | | | | [address] | | + + + + + Care Team Providers + +------+ + | Care Button Spindler Name | Role | Phone | + [...] | | | | | [address] [place], | [place], [place] | | | | | [place] [address] | [address] | | | | | [phone] | | | +--------+ + + + [...] [place] | | | | | | [address] | | | | | | [phone] | | | | | | | | +--------+ + + + + documented as of this encounter Visit Diagnoses Not on filedocumented in this encounter"
--- OUTSIDE RECORDS SUMMARY | ~2019-03-12 | XMS | Encounter Summary ---
Demographics + + + | Address | [address] | | | [place] [address] | + + + | Home Phone [...] | Author | [facility] | | | and Josephana | + + + | Organization | [facility] | | [...] to | | | obtain one in [place]. I explained that we would have to [...] + + | 06/13/ | Telephone | [facility] | Meño Tran | Kidney Transplant | | 2019 | | [facility] | [address], [address] | Pre-evaluation | | | | KIDNEY TRANSPLANT | [place] [address], | (Dara whelan so I | | | | [address] [place] | [place] [address] | called her back to | | | | [address] [place], [place] | [phone] | complete intake | | | | [address] | | questionnaire. She | | | | [phone] | | currently ingests | | | [...] | | | | | one in [place]. I | | | | | | [...] she would have to obtain one in [place]. I explained that we would have to [...] [place] | | | | | | [place] [address] | | | | | | [phone] | | | | | | | | +--------+---------+ + + + documented as of this encounter Visit Diagnoses Not on filedocumented in this encounter"
--- OUTSIDE RECORDS SUMMARY | ~2019-03-12 | XMS | Encounter Summary ---
Demographics + + + | Address | [address] | | | [place] [address] | + + + | Home Phone [...] | Author | [facility] | | | and Josephana | + + + | Organization | [facility] | [...] Team Providers + +------+ + | Care Provider Network Mgr Name | Role | Phone | + +------+ + PCP | Unavailable | + +------+ + Encounter Details +--------+ + + + + | Date | Type | Department | Care Team | Description | +--------+ + + + + | 10/31/ | Hospital | [facility] | Conversion | ESRD (end stage | | 2015 | Encounter | CENTER CV INTRA OP | Transaction, | renal disease) on | | | | [address] | Provider Unknown | dialysis ([facility]) | | | | [place], [place] | [phone] | | | | | [address] | | | | | | [phone] | Colten Hutchins MD | | | | | | [address] | | | | | | [place], [place] | | | | | | [address] | | | | | | | [...] Note by Bev Carroll RN at 10/31/14 513 Author: Bev Carroll RN Service: Interventional Radiology Author Type: Registered Chantell e Filed: 10/31/14 1243 Date of Service: 10/31/141734 Status: Signed Director Paid Media: Bev Carroll RN (Registered Nurse) Sutures removed [...] Note by Bev Carroll RN at 10/31/14 7299 Author: Bev Carroll, RN Service: Interventional Radiology Author Type: Registered Chantell rse Filed: 10/31/141649 Date of Service: 10/31/141649 Status: Signed Director Paid Media: Bev Carroll RN (Registered Nurse) Attempted removal [...] [place] | | | | | | [place] [address] | | | | | | [phone] | | | | | | | [...] | | yesterday COMPARISON STUDIES: 10/28/2014 PRIMARY TRACK GRINDER: | | | Colten Hutchins MD, PhD, [facility] OPERATIONS: 1. Ultrasound-guided | | | [...] | microsheath were both exchanged for 6 Ethiopian sheaths. A catheter was | | | [...] yesterday | | COMPARISON STUDIES: 10/28/2014 PRIMARY TRACK GRINDER: Colten Hutcihns MD, PhD, RPVI | | OPERATIONS:1. Ultrasound-guided [...] were both exchanged for 6 | | Ethiopian sheaths. A catheter was advanced over a [...] | | yesterday COMPARISON STUDIES: 10/28/2014 PRIMARY TRACK GRINDER: | | | Colten Hutchins MD, PhD, [facility] OPERATIONS: 1. Ultrasound-guided | | | [...] | microsheath were both exchanged for 6 Ethiopian sheaths. A catheter was | | | [...] yesterday | | COMPARISON STUDIES: 10/28/2014 PRIMARY TRACK GRINDER: Colten Hutchins MD, PhD, RPVI | | [...] were both exchanged for 6 | | Ethiopian sheaths. A catheter was advanced over a [...] | | yesterday COMPARISON STUDIES: 10/28/2014 PRIMARY TRACK GRINDER: | | | Colten Hutchins MD, PhD, [facility] OPERATIONS: 1. Ultrasound-guided | | | [...] | microsheath were both exchanged for 6 Ethiopian sheaths. A catheter was | | | [...] yesterday | | COMPARISON STUDIES: 10/28/2014 PRIMARY TRACK GRINDER: Colten Hutchins MD, PhD, RPVI | | [...] were both exchanged for 6 | | Ethiopian sheaths. A catheter was advanced over a [...] | | yesterday COMPARISON STUDIES: 10/28/2014 PRIMARY TRACK GRINDER: | | | Colten Hutchins MD, PhD, [facility] OPERATIONS: 1. Ultrasound-guided | | | [...] | microsheath were both exchanged for 6 Ethiopian sheaths. A catheter was | | | [...] yesterday | | COMPARISON STUDIES: 10/28/2014 PRIMARY TRACK GRINDER: Colten Hutchins MD, PhD, RPVI | | [...] were both exchanged for 6 | | Ethiopian sheaths. A catheter was advanced over a [...]
--- OUTSIDE RECORDS SUMMARY | ~2019-03-12 | XMS | Encounter Summary ---
Demographics + + + | Address | [address] | | | [place] [address] | + + + | Home Phone [...] | Author | [facility] | | | and Josephana | + + + | Organization | [facility] | | [...] Providers + +------+ + | Care Process Server Name | Role | Phone | [...] | | [address] | [place], [address] | | | | | [place], [place] | [place], [place] | | | | | [address] | [address] | | | | | [phone] | | | +--------+--------+ + + + [...] | | | | | [place] [address] | | | | | | [phone] | | | | | | | | +--------+---------+ + + + documented as of this encounter Visit Diagnoses Not on filedocumented in this encounter"
--- OUTSIDE RECORDS SUMMARY | ~2019-03-12 | XMS | Encounter Summary ---
Demographics + + + | Address | [address] | | | [place] [address] | + + + | Home Phone [...] Author | [facility] | | | and Josephana | + + + | Organization | [facility] [...] + + | 05/14/ | Hospital | [facility] | Michelle Benitez, | | | 2008 | Encounter | HOSPITAL EMERGENCY | [address] | | | | | CENTER [address] | [place], [place] | | | | | [address] [place] | [address] | | | | | [address] | [phone] | | | | | [phone] | | | +--------+ + + + [...] [place] | | | | | | [place] [address] | | | | | | [phone] | | | | | | | | +--------+---------+ + + + documented as of this encounter Visit Diagnoses Not on filedocumented in this encounter"
--- OUTSIDE RECORDS SUMMARY | ~2019-03-12 | XMS | Encounter Summary ---
Demographics + + + | Address | [address] | | | [place] [address] | + + + | Home Phone [...] | | | | | [place] [address] | | + + + + + | Thania Mallory | ECON | [address] | | | | | [place] [address] | | + + + + + | Deidra Weldon | ECON | [address] | | | | | [place] | | | | | [address] | | + + + + + Care Team Providers + +------+ + | Care Air Boatswain Name | Role | Phone | + [...] Griffin | [facility] | | | | | [address] [place], | [place], [place] | | | | | [place] [address] | [address] | | | | | [phone] | | | +--------+ + + + [...] Denise | | | | | | [place], [place] | | | | | | [address] | | | | | | [phone] | | | | | | | | +--------+ + + + + documented as of this encounter Visit Diagnoses Not on filedocumented in this encounter"
--- OUTSIDE RECORDS SUMMARY | ~2019-03-12 | XMS | Encounter Summary ---
Demographics + + + | Address | [address] | | | [place] [address] | + + + | Home Phone [...] | | | | | [place] [address] | | + + + + + | Thania Mallory | ECON | [address] | | | | | [place] [address] | | + + + + + | Deidra Weldon | ECON | [address] | | | | | [place] | | | | | [address] | | + + + + + Care Team Providers + +------+ + | Care Auto Glass Worker Name | Role | Phone | [...] | | | | | Alexander | [facility] | | | | | [facility] | [place], [place] | | | | | [address] [facility] | [address] | | | | | Mailcode: DCAnna | [phone] | | | | | Alexander | | | | | | [place], [place] | | | | | | [address] | | | | | | [phone] | | | +--------+--------+ + + + [...] | | | | | [place], [place] | | | | | | [address] | | | | | | [phone] | | | | | | | | +--------+ + + + + documented as of this encounter Visit Diagnoses Not on filedocumented in this encounter"
--- OUTSIDE RECORDS SUMMARY | ~2019-03-12 | XMS | Encounter Summary ---
Demographics + + + | Address | [address] | | | [place] [address] | + + + | Home Phone [...] | Author | [facility] | | | and Josephana | + + + | Organization | [facility] | [...] | + + +---------+ + | Saundar Mallory | ECON | Unknown | | + + +---------+ + Care Team Providers + +------+ + | Care Aluminizer Name | Role | Phone | + [...] NEPHROLOGY [address] | MD [address] | | | | | [address] | [address] [place] | | | | | [place], [place] | [place] [address] | | | | | [address] | [phone] | | | | | [phone] | | | +--------+ + + + [...] [place] | | | | | | [place] [address] | | | | | | [phone] | | | | | | | | +--------+---------+ + + + documented as of this encounter Visit Diagnoses Not on filedocumented in this encounter"
--- OUTSIDE RECORDS SUMMARY | ~2019-03-12 | XMS | Encounter Summary ---
Demographics + + + | Address | [address] | | | [place] [address] | + + + | Home Phone [...] | [facility] | | | and Josephana | + + + | Organization | [facility] | [...] Team Providers + +------+ + | Care Detective And Intelligence Analyst Name | Role | Phone [...] NEPHROLOGY [address] | MD [address] | (Asymptomatic) | | | | [address] | [address] [place] | | | | | [place], [place] | [place] [address] | | | | | [address] | [phone] | | | | | [phone] | | | +--------+ + + + [...] note e-faxed to Jamil Levi in Dialysis [facility], Lianna Joy [facility] pediatric nephrology at [facility] on 02/07/14. Daniela Ibarra MD - 01/24/2014 2:48 PM PSTFormatting of this note might be different fr om the original. Comprehensive Dialysis Monthly Note Date of visit: 01/24/2014 Dialysis Clinic: [facility] Mode of dialysis: Hemodialysis Dialysis prescription: MWF, [...] R chest catheter. Re-referred to [facility] transplant in Oct 2013 by pediatric medical assistant. Peritonitis, dialysis-associated (HCC) 07/29/2013 Note Last Updated: 07/29/2013 Due to MSSA. Had tunneled infection as well. PD catheter removed in July 2013. On Keflex till 08/01/13. History of Henoch-Schonlein purpura Note Last Updated: 07/29/2013 Diagnosed at age 10[address] Joy, pediatric medical assistant. Anemia in ESRD (end-stage renal disease) [...] acceptable candidacy. Will f/u with [facility] Transplant Team. cc: Lucille Griffin [facility] Dr. Lianna Joy, [facility] Pediatric Nephrology [facility] Renal transplant documented in this [...] | | | | | | [place] [address] | | | | | | [phone] | | | | | | | [...]
--- OUTSIDE RECORDS SUMMARY | ~2019-03-12 | XMS | Encounter Summary ---
Demographics + + + | Address | [address] | | | [place] [address] | + + + | Home Phone [...] | | | | | [place] [address] | | + + + + + | Thania Mallory | ECON | [address] | | | | | [place] [address] | | + + + + + | Deidra Weldon | ECON | [address] | | | | | [place] | | | | | [address] | | + + + + + Care Team Providers + +------+ + | Care Filling Layer Up Name | Role | Phone | [...] | renal | [address] | [address] | | | | | disease | Shun Griffin | Elias Elizondo | | | | | ([facility] | [address] | [place], | | | | | Allergic | [place], [place] | [place] | | | | | purpura | [address] | [address] | | | | | ([facility]) | Phone: | Phone: | | | | | | [phone] | [phone] | | | | | | Fax: | Fax: | | | | | | [phone] | [phone] | +--------+--------+ + + + + Encounter Details +--------+---------+ + + + | Date | Type | Department | Care Team | Description | +--------+---------+ + + + | 12/19/ | Office | Kidney Transplant | Clinic, Ltx [address] | Patient on | | 2012 | Visit | at Physician's | [address] [facility] | peritoneal dialysis | | | | [address] [place], [place] | (HCC) (Primary Dx); | | | | [address] | [address] | Unspecified | | | | Mailcode: L590 | | essential | | | | [facility] | | hypertension; HSP | | | | [place], [place] | | (Henoch-Schonlein | | | | [address]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; | | | | [phone] | | Obesity (BMI | | | [...] on file Social History Narrative Lives in [place], [place] with father and step-mother; 2 dogs; [...] Transplant Selection Confer ence. El Starr MD running instructor, Division of Abdominal Organ Transplantation Professor of Urology CC: Sudhakar Joy MD [address] [place] [address] documented in this encoun ter Plan of Treatment +--------+ + + + + | Date | Type | Specialty | Care Team | Description | +--------+ + + + + | 05/04/ | Hospital | Adult Acute Care | El Starr MD | | | 2022 | Encounter | | [address] | | | | | | [place], [place] | | | | | | [address] | | | | | | [phone] | | | | | | | [...]
--- OUTSIDE RECORDS SUMMARY | ~2019-03-12 | XMS | Encounter Summary ---
Demographics + + + | Address | [address] | | | [place] [address] | + + + | Home Phone [...] | Author | [facility] | | | and Josephana | + + + | Organization | [facility] | [...] Team Providers + +------+ + | Care Chore Tender Name | Role | Phone | [...] | | stage renal | [address] | [address] [place] [address] | | | | | disease) | Shun Griffin | [place] Gotti | | | | | ([facility]) | [address] | [address] [place] | | | | | Anemia in | [place], [place] | [place] | | | | | ESRD | [address] | [address] Phone: | | | | | (end-stage | Phone: | [phone] | | | | | renal | [phone] | Fax: | | | | | disease) | Fax: | [phone] | | | | | ([facility]) | [phone] | | | | | | Procedures [...] | | [address] | [place], [address] | (Primary Dx); | | | | [place], [place] | [place], [place] | Secondary | | | | [address] | [address] | hyperparathyroidism | | | | [phone] | | ([facility]) | +--------+ [...] | | | | | [place] [address] | | | | | | [phone] | | | | | | | [...]
--- OUTSIDE RECORDS SUMMARY | ~2019-03-12 | XMS | Encounter Summary ---
Demographics + + + | Address | [address] | | | [place] [address] | + + + | Home Phone [...] | | | | | [place] [address] | | + + + + + | Thania Mallory | ECON | [address] | | | | | [place] [address] | | + + + + + | Deidra Weldon | ECON | [address] | | | | | [place] | | | | | [address] | | + + + + + Care Team Providers + +------+ + | Care Carbonation Tester Name | Role | Phone | [...] | Nephrology at | MD Emanuel [address] [facility] | | | | | Alexander | [facility] | | | | | [facility] | [place], [place] | | | | | [address] [facility] | [address] | | | | | Mailcode: DCH7 | [phone] | | | | | Alexander | | | | | | [place], [place] | | | | | | [address] | | | | | | [phone] | | | +--------+ + + + [...] 2022 | Encounter | | [address] | | | | | | [place] | | | | | | [address] | | | | | | [phone] | | | | | | | | +--------+ + + + + documented as of this encounter Visit Diagnoses Not on filedocumented in this encounter"
--- OUTSIDE RECORDS SUMMARY | ~2019-03-12 | XMS | Encounter Summary ---
Demographics + + + | Address | [address] | | | [place] [address] | + + + | Home Phone [...] | | | | | [place] [address] | | + + + + + | Thania Mallory | ECON | [address] | | | | | [place] [address] | | + + + + + | Deidra Weldon | ECON | [address] | | | | | [place] | | | | | [address] | | + + + + + Care Team Providers + +------+ + | Care Surgical Elastic Knitter Hand Frame Name | Role | Phone | + [...] | Nephrology at | MD Emanuel [address] [facility] | | | | | Alexander | [facility] | | | | | [facility] | [place], [place] | | | | | [address] [facility] | [address] | | | | | Mailcode: DCH7 | [phone] | | | | | Alexander | | | | | | [place], [place] | | | | | | [address] | | | | | | [phone] | | | +--------+ + + + [...] Ave | | | | | | [place], [place] | | | | | | [address] | | | | | | [phone] | | | | | | | [...] | [address] | [place] [address] | [phone] | | HOSPITAL | | | | [...] [address] | [place] [address] | [phone] | | HOSPITAL | | | | [...] + + + + + | [facility] | [address] | [place] [address] | [phone] | | HOSPITAL | | | | [...] + + + + + | [facility] | [address] | [place] [address] | [phone] | | HOSPITAL | | | | [...] | [address] | [place] [address] | [phone] | | HOSPITAL | | | | [...] [address] | [place] [address] | [phone] | | HOSPITAL | | | | + + + + + documented in this encounter Visit Diagnoses Not on filedocumented in this encounter"
--- OUTSIDE RECORDS SUMMARY | ~2019-03-12 | XMS | Encounter Summary ---
Demographics + + + | Address | [address] [facility] | | | [place] [address] | + + + | Home Phone [...] | | | | | [place] [address] | | + + + + + | Thania Mallory | ECON | [address] | | | | | [place] [address] | | + + + + + | Deidra Weldon | ECON | [address] | | | | | [place] | | | | | [address] | | + + + + + Care Team Providers + +------+ + | Care Tariff Supervisor Name | Role | Phone | [...] Transplant Services | RN [address] [facility] | Update | | | | [address] [facility] | [facility] | | | | | [facility], | [place], [place] | | | | | [place] [address] | [address] | | | | | [phone] | | | +--------+ + + + [...] [place] | | | | | | [address] | | | | | | [phone] | | | | | | | | +--------+ + + + + documented as of this encounter Visit Diagnoses Not on filedocumented in this encounter"
--- OUTSIDE RECORDS SUMMARY | ~2019-03-12 | XMS | Encounter Summary ---
Demographics + + + | Address | [address] | | | [place] [address] | + + + | Home Phone [...] | | | | | [place] [address] | | + + + + + | Thania Mallory | ECON | [address] | | | | | [place] [address] | | + + + + + | Deidra Weldon | ECON | [address] | | | | | [place] | | | | | [address] | | + + + + + Care Team Providers + +------+ + | Care Geometrician Name | Role | Phone | + [...] | | | [address] | [place] [address] | | | | | [address], | [place], [place] | | | | | [place] [address] | [address] | | | | | [phone] | [phone] | | | | | | | [...] Denise | | | | | | [place], [place] | | | | | | [address] | | | | | | [phone] | | | | | | | | +--------+ + + + + documented as of this encounter Visit Diagnoses Not on filedocumented in this encounter"
--- OUTSIDE RECORDS SUMMARY | ~2019-03-12 | XMS | Encounter Summary ---
Demographics + + + | Address | [address] | | | [place] [address] | + + + | Home Phone [...] | | | | | [place] [address] | | + + + + + | Thania Mallory | ECON | [address] | | | | | [place] [address] | | + + + + + | Deidra Weldon | ECON | [address] | | | | | [place] | | | | | [address] | | + + + + + Care Team Providers + +------+ + | Care Automobile Technician Name | Role | Phone | [...] [address] | [facility] | | | | | Park [place], | [place], [place] | | | | | [place] [address] | [address] | | | | | [phone] | | | +--------+ + + + [...] | | | | | | [place], [place] | | | | | | [address] | | | | | | [phone] | | | | | | | [...]
--- OUTSIDE RECORDS SUMMARY | ~2019-03-12 | XMS | Encounter Summary ---
Demographics + + + | Address | [address] | | | [place] [address] | + + + | Home Phone [...] | | | | | [place] [address] | | + + + + + | Thania Mallory | ECON | [address] | | | | | [place] [address] | | + + + + + | Deidra Weldon | ECON | [address] | | | | | [place] | | | | | [address] | | + + + + + Care Team Providers + +------+ + | Care Header Operator Name | Role | Phone | [...] | [address] | [facility] | | | | | [facility], | [place], [place] | | | | | [place] [address] | [address] | | | | | [phone] | | | +--------+ + + + [...] Denise | | | | | | [place], [place] | | | | | | [address] | | | | | | [phone] | | | | | | | | +--------+ + + + + documented as of this encounter Visit Diagnoses Not on filedocumented in this encounter"
--- OUTSIDE RECORDS SUMMARY | ~2019-03-12 | XMS | Encounter Summary ---
Demographics + + + | Address | [address] | | | [place] [address] | + + + | Home Phone [...] | [facility] | | | and Josephana | + + + | Organization | [facility] [...] Team Providers + +------+ + | Care Cork Insulator Helper Name | Role | Phone [...] | Encounter | JOY | MD Emanuel [address] | | | | | [address] | [facility] | | | | | [address] | [place], [place] | | | | | [place], [place] | [address] | | | | | [address] | [phone] | | | | | [phone] | | | +--------+ + + + [...] [place] | | | | | | [place] [address] | | | | | | [phone] | | | | | | | | +--------+---------+ + + + documented as of this encounter Visit Diagnoses Not on filedocumented in this encounter"
--- OUTSIDE RECORDS SUMMARY | ~2019-03-12 | XMS | Encounter Summary ---
Demographics + + + | Address | [address] | | | [place] [address] | + + + | Home Phone [...] Author | [facility] | | | and [place]ana | + + + | Organization | [facility] | | [...] Team Providers + +------+ + | Care Incubator Tender Name | Role | Phone | + +------+ + | Jonathan Alonso MD | PCP | | + +------+ + Encounter Details +--------+ + + + + | Date | Type | Department | Care Team | Description | +--------+ + + + + | 06/11/ | Abstract | [facility] | Edvin PulidoMeoñ | | | 2019 | | [facility] | MD Linda [address] | | | | | KIDNEY TRANSPLANT | [address] [place], | | | | | [address] [place] | [place] [address] | | | | | [address] [place], [place] | [phone] | | | | | [address] | | | | | | [phone] | | | +--------+ + + + [...] [place] | | | | | | [place] [address] | | | | | | [phone] | | | | | | | | +--------+---------+ + + + documented as of this encounter Visit Diagnoses Not on filedocumented in this encounter"
--- OUTSIDE RECORDS SUMMARY | ~2019-03-12 | XMS | Encounter Summary ---
Demographics + + + | Address | [address] | | | [place] [address] | + + + | Home Phone [...] | [facility] | | | and [place]ana | + + + | Organization | [facility] | [...] Team Providers + +------+ + | Care Reactor Fueling Supervisor Name | Role | Phone | [...] stage renal | [address] | [address] [place] [address] | | | | | disease) | Shun Griffin | [place] [address] | | | | | ([facility]) | [address] | [address] [place] | | | | | Anemia in | [place], [place] | [place] | | | | | ESRD | [address] | [address] Phone: | | | | | (end-stage | Phone: | [phone] | | | | | renal | [phone] | Fax: | | | | | disease) | Fax: | [phone] | | | | | ([facility]) | [phone] | | | | | | Procedures [...] | | [address] | [place], [address] | (Primary Dx) | | | | [place], [place] | [place], [place] | | | | | [address] | [address] | | | | | [phone] | | | +--------+ + + + [...] is seen on the MWF shift at [place]. 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 Sadly, efforts at counseling by multiple caregivers including Dr. Ibarra, myself, Staff Nurs es, and Clinic LEAD ANDROID DEVELOPER have failed to reach her. She continues [...] in 2 weeks. : [place] Fina Joy M.D., Pediatric Nephrology, [facility] [...] [place] | | | | | | [place] [address] | | | | | | [phone] | | | | | | | | +--------+---------+ + + + documented as of this encounter Visit Diagnoses + + | Diagnosis | + + | ESRD (end stage renal disease) (HCC) - Primary End stage renal disease | + + documented in this encounter"
--- OUTSIDE RECORDS SUMMARY | ~2019-03-12 | XMS | Encounter Summary ---
Demographics + + + | Address | [address] | | | [place] [address] | + + + | Home Phone [...] | | | | | [place] [address] | | + + + + + | Thania Mallory | ECON | [address] | | | | | [place] [address] | | + + + + + | Deidra Weldon | ECON | [address] | | | | | [place] | | | | | [address] | | + + + + + Care Team Providers + +------+ + | Care Strategic Development Manager Name | Role | Phone [...] | | [address] | [facility] | | | | | [address] [place], | [place], [place] | | | | | [place] [address] | [address] | | | | | [phone] | | | +--------+ + + + [...] | | | | | | [place] | | | | | | [address] | | | | | | [phone] | | | | | | | | +--------+ + + + + documented as of this encounter Visit Diagnoses Not on filedocumented in this encounter"
--- OUTSIDE RECORDS SUMMARY | ~2019-03-12 | XMS | Encounter Summary ---
Demographics + + + | Address | [address] | | | [place] [address] | + + + | Home Phone [...] | | | | | [place] [address] | | + + + + + | Thania Mallory | ECON | [address] | | | | | [place] [address] | | + + + + + | Deidra Weldon | ECON | [address] | | | | | [place] | | | | | [address] | | + + + + + Care Team Providers + +------+ + | Care User Experience Lead Name | Role | Phone | [...] | ([facility]) | Anil Griffin | Mailcode: | | | | | Procedures | Long Chan | [facility] | | | | | TRANSTHORACI | [place], [place] | Alexander | | | | | C | [address] | [place], [place] | | | | | ECHOCARDIOGR | Phone: | [address] | | | | | AM, PEDS | [phone] | Phone: | | | | | | Fax: | [phone] | | | | | | [phone] | Fax: | | | | | | | [phone] | +--------+--------+ + + + + Reason [...] | | [address] | [facility] | | | | | [address] [place], | [place], [place] | | | | | [place] [address] | [address] | | | | | [phone] | | | +--------+ + + + [...] Denise | | | | | | [place], [place] | | | | | | [address] | | | | | | [phone] | | | | | | | [...] view image for the detailed interpretation from [employer] results. | CARDIOLOGY | + + + [...] + + | [facility] | [address] | [place], [place] | | | CARDIOLOGY | [address] | [address] | | + + + + + LIT SRUTHI-B WILEY ZHANG (12/20/2012 10:02 AM PDT) + + | Specimen | + + | Blood - Blood | + + + + + + + | Performing | Address | City/State/Zipcode | Phone Number | | Organization | | | | + + + + + | [facility] - | [address] | [place] [address] | | | IMMUNOGENETICS/TRANS | [address] [...] [facility] - | [address] | [place] [address] | | | IMMUNOGENETICS/TRANS | [address] [...] - | [address] | [place], [place] | | | IMMUNOGENETICS/TRANS | [address] [...] - | [address] | [place], [place] | | | IMMUNOGENETICS/TRANS | [address] [...] + + | [facility] - | [address] | [place] [address] | | | IMMUNOGENETICS/TRANS | [address] [...] [facility] - | [address] | [place] [address] | | | IMMUNOGENETICS/TRANS | [address] [...] [facility] | | | , SERUM | [facility],[address] | | REG UNIV | | | | [place], [facility] [place] [facility] | | PTH - INTFC | | | | [address] | | | | | | [phone]. | | | | | | Faisal [...] [facility] | [address] | [place], [place] | | | UNIV PTH - INTFC | | [address] | | + + + + + [...] | + + + + + | [facility] | [address] | [place] [address] | | | HOMERO LAN | LONG [...] | [facility] | [address] | [place] [address] | | | SERVICES, CORE | LONG [...] + | [facility] - | [address] | [place] [address] | | | [place] | | | [...] [facility] | [address] | [place] [address] | | | SERVICES, CORE | PARK [...] | [facility] | [address] | [place] [address] | | | SERVICES, CORE | LONG [...] | + + + + + | [email or web address] | [address] | [place] [address] | | | SERVICES, CORE | LONG [...] + | [facility] - | [address] | [place] [address] | | | [place] | | | [...] at: | | | | | | http://www.cdc.gov/nchstp/tb/pubs/tbfactssheets/419788.htm | | | Test performed by: [facility] [address] [place] [address] | | + + + + + [...] | [facility] | [address] | [place] [address] | | | SERVICES, SPECIAL | LONG [...] | PROTHROMBIN | No Mutation | | [facility] | | | GENE | | [...] gene at | DIAGNOSTIC | | nucleotide [id number]. Please note that this assay only detects the | LABORATORIES | | [id number] point mutation and therefore a normal result [...] has been analyzed for the presence of [id number] | | | mutation in the prothrombin [...] | | Heterozygotes for the common prothrombin U67075H mutation constitute | | | approximately 2% of the normal white population (1,2). | | | References: 1.) Edwinat et al. Blood 88, 3111-4293 (1996). 2.) Ricardo | | | et al. Circulation 99, 999-1004 (1998). 3.) Al Montalvo, and | | | Chase. Amer J Clin Path 155, 439-47 (2000). This test was | | | developed and its performance characteristics determined by the [facility] | | | [facility]. It has | | | not been cleared or approved by the Food and Drug Administration. | | | FDA approval is not required for clinical use of this test, and | | | therefore validation was done as required under the requirements of | | | the Clinical Laboratory Improvement Act of 1988. [facility] | Diagnostic [facility] is a fully | | | licensed and/or accredited clinical laboratory under CLIA, CAP, and | | | the [facility]. Please note that our lab [...] + + | Performing | Address | City/State/[facility] | Phone Number | | Organization | | | | + + + + + | [facility] | [address] | [place] [address] | | | DIAGNOSTIC | [address] [...] | [facility] | [address] | [place] [address] | | | SERVICES, CORE | PARK [...] | [facility] | [address] | [place] [address] | | | SERVICES, CORE | PARK [...] [facility] | [address] | [place] [address] | | | SERVICES, HOMERO | LONG [...] | + + + + + | [facility] | [address] | [place] [address] | | | HOMERO LAN | LONG [...] | | | | | | [place] [address] | | | | | | [phone]. | | | | | | Faisal [...] [facility] | [address] | [place], [place] | | | UNIV PTH - INTFC | | [address] | | + + + + + [...] | [facility] | [address] | [place] [address] | | | SERVICES, SPECIAL | PARK [...] + + + + | [facility] | [address] | [place] [address] | | | DIAGNOSTIC | [address] [...] + | [facility] - | [address] | [place] [address] | | | [place] | | | [...] + | [facility] - | [address] | [place] [address] | | | [place] | | | [...] + | [facility] - | [address] | [place] [address] | | | [place] | | | [...] + | [facility] - | [address] | [place] [address] | | | [facility] | | | | + [...] less......Not | | | | | | Wzsvyltp26.0-21.9 | | | | | | U/mL.........Indetermina [...] available | | | | | | [email or web address] | | | | | | vdx.Performed by [facility] | | | | | | [facility],[address] | | | | | | [place], [place] [address] | | | | | | [phone]. | | | | | | Faisal [...] [facility] | [address] | [place], [place] | | | UNIV PTH - INTFC | | [address] | | + + + + + [...] + | [facility] - | [address] | [place] [address] | | | [place] | | | [...] | [facility] | [address] | [place] [address] | | | SERVICES, CORE | PARK [...] by | | | | | | Ina[address] | | | | | | [place], [facility] [place] | | | | | | [address] | | | | | | [phone].PhotoBox. | | | | | | Faisal [...] [facility] | [address] | [place], [place] | | | UNIV PTH - INTFC | | [address] | | + + + + + [...] [facility] | [address] | [place] [address] | | | SERVICES, CORE | PARK [...] [facility] | [address] | [place] [address] | | | SERVICES, CORE | PARK [...] LABORATORY | [address] | [place] [address] | | | HOMERO LAN | LONG [...]
--- OUTSIDE RECORDS SUMMARY | ~2019-03-12 | XMS | Encounter Summary ---
Demographics + + + | Address | [address] | | | [place] [address] | + + + | Home Phone [...] + | Author | [facility] | | | and Josephana | + + + | Organization | [facility] | [...] Providers + +------+ + | Care District Resource Officer Name | Role | Phone | [...] | | [address] | [facility] | | | | | [address] | [place] [address] | | | | | [phone] | [phone] | | | | | | | [...] [place] | | | | | | [place] [address] | | | | | | [phone] | | | | | | | [...]
--- OUTSIDE RECORDS SUMMARY | ~2019-03-12 | XMS | Encounter Summary ---
Demographics + + + | Address | [address] | | | [place] [address] | + + + | Home Phone [...] + | Author | [facility] | | | and Josephana | + + + | Organization | [facility] | [...] Providers + +------+ + | Care Graphic Design Assistant Name | Role | Phone | [...] | NEPHROLOGY [address] | renal disease) ([facility]) | | | | [address] | [address] [place] | (Primary Dx); | | | | [place], [place] | [place] [address] | Depression | | | | [address] | [phone] | | | | | [phone] | | | +--------+ + + + [...] [place] | | | | | | [place] [address] | | | | | | [phone] | | | | | | | | +--------+---------+ + + + documented as of this encounter Visit Diagnoses + + | Diagnosis | + + | ESRD (end stage renal disease) (HCC) - Primary End stage renal disease | + + | Depression Depressive disorder, not elsewhere classified | + + documented in this encounter"
--- OUTSIDE RECORDS SUMMARY | ~2019-03-12 | XMS | Encounter Summary ---
Demographics + + + | Address | [address] | | | [place] [address] | + + + | Home Phone [...] Author | [facility] | | | and Josephana | + + + | Organization | [facility] [...] Team Providers + +------+ + | Care Cancer Center Director Name | Role | Phone [...] | | KIDNEY TRANSPLANT | [address] [place], | | | | | [address] [place] | [place] [address] | | | | | [address] [place], [place] | [phone] | | | | | [address] | | | | | | [phone] | | | +--------+ + + + [...] | | | | [place] [address] | | | | | | [phone] | | | | | | | | +--------+---------+ + + + documented as of this encounter Visit Diagnoses Not on filedocumented in this encounter"
--- OUTSIDE RECORDS SUMMARY | ~2019-03-12 | XMS | Encounter Summary ---
Demographics + + + | Address | [address] | | | [place] [address] | + + + | Home Phone [...] Author | [facility] | | | and Josephana | + + + | Organization | [facility] | [...] Team Providers + +------+ + | Care Verifying Machine Operator Name | Role | Phone | + +------+ + PCP | Unavailable | + +------+ + Encounter Details +--------+ + + + + | Date | Type | Department | Care Team | Description | +--------+ + + + + | 05/29/ | Hospital | [facility] | Conversion | End stage renal | | 2014 | Encounter | [facility] | Transaction, | disease (HCC) | | | | [address] | Provider Unknown | | | | | [place], [place] | | | | | | [address] | (Fax) | | | | | [phone] | | | +--------+ + + + [...] 05/29/141653 Date of Service: 05/29/141648 Status: Signed [employer] Social Worker: Mesha Clark RN (Registered Nurse) Discharge criteria [...] E | | | | | | [place] [address] | | | | | | [phone] | | | | | | | [...] Successful | | | placement of a 14.5-Andorran dual-lumen 19-cm tunneled hemodialysis | | | catheter with its tip in the upper portion of the right atrium without | | | incidence. 69473, 23108, 22442, 44058-53 Electronically | | | signed by Darryn [...] jugular vein. 3. Placement of 19 cm, 14.5-Andorran | | | dual-lumen tunneled palindrome hemodialysis [...] records. 3. Upper chest radiograph shows dual-lumen, 14.5-Andorran, | | | 19-cm, tunneled dialysis catheter [...] | micropuncture needle and exchanged for a 4-Andorran micropuncture sheath | | | over a 0.018 wire. Skin in the infraclavicular region was | | | infiltrated with 1% lidocaine and a 5-mm skin incision was made. A | | | 14.5-Andorran, dual-lumen, 19-cm tunneled hemodialysis catheter was | | | placed a subcutaneous tunnel using a metallic tunneler. The 4-Andorran | | | sheath was exchanged for a 0.035, 3-mm J-wire with its tip in the | | | right atrium under fluoroscopy guidance. The skin and subcutaneous | | | tract was dilated using at 12 and 14-Andorran facial dilators. A | | | 15-Andorran peel-away sheath was placed over the wire [...] vein.3. Placement of 19 | | cm, 14.5-Andorran dual-lumen tunneled palindrome hemodialysis catheter in the [...] Upper chest radiograph shows dual-lumen, | | 14.5-Andorran, 19-cm, tunneled dialysis catheter with its tip [...] needle and exchanged for | | a 4-Andorran micropuncture sheath over a 0.018 wire. Skin in the infraclavicular region | | was infiltrated with 1% lidocaine and a 5-mm skin incision was made. A 14.5-Andorran, | | dual-lumen, 19-cm tunneled hemodialysis catheter was placed a subcutaneous tunnel using | | a metallic tunneler. The 4-Andorran sheath was exchanged for a 0.035, 3-mm J-wire with | | its tip in the right atrium under fluoroscopy guidance. The skin and subcutaneous tract | | was dilated using at 12 and 14-Andorran facial dilators. A 15-Andorran peel-away sheath | | was placed over [...] veins.2. Successful placement | | of a 14.5-Andorran dual-lumen 19-cm tunneled hemodialysis catheter with its tip in the | | upper portion of the right atrium without incidence. 81151, 96157, 16234, 97919-66 | | | |2. Successful placement of a 14.5-Andorran dual-lumen 19-cm tunneled hemodialysis catheter w ith its tip in the upper portion of the right atrium without incidence. | | | |[address]231, [address]1085, [address]37, 53951-76 | | | | | + + documented in this encounter Visit Diagnoses + + | Diagnosis | + + | End stage renal disease (HCC) End stage renal disease | + + documented in this encounter"
--- OUTSIDE RECORDS SUMMARY | ~2019-03-12 | XMS | Encounter Summary ---
Demographics + + + | Address | [address] | | | [place] [address] | + + + | Home Phone [...] | Author | [facility] | | | and [place] | + + + | Organization | [facility] | [...] Team Providers + +------+ + | Care Turbine Room Attendant Name | Role | Phone [...] + + | 11/06/ | Hospital | [facility] | Johnathan Brooks, | Chronic right-sided | | 2019 - | Encounter | [facility] | MD Brooks TORRES | heart failure (HCC) | | | | CARE FLOOR [address] | [place] [address] | (Primary Dx); Acute | | 11/09/ | | [address] | [phone] | hypoxemic | | 2019 | | [place], [place] | | respiratory failure | | | | [address] | Darell Kowalski MD | (HCC); Chronic | | | | [phone] | [address] | 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 [facility] Service: Medicine DISCHARGE SUMMARY Primary Care [...] transferred with the patient's paper documentation from [facility] ER). Initial labs: WBC 6.5, hemoglobin [...] suggesting of edema. Taken from Dr. Brooks [facility] (11/06/2018) HOSPITAL COURSE Patient was [...] GRAFT REPAIR/REVISION; Surgeon: Rik Simon MD; Location: [facility]; Service: Vascular; Laterality: Left; biopsy of kidney age 10 DIALYSIS FISTULA CREATION 04/08/2014 Procedure: DIALYSIS CATHETER - INSERTION; Surgeon: Rik Simon MD; Location: [facility] ; Service: Vascular; Laterality: N/A; tunneled catheter.br hemodialysis catheter KIDNEY BIOPSY Left 2003 OTHER SURGICAL HISTORY LAPAROSCOPIC PERITONEAL DIALYSIS CATHETER INSERTION - x2 OTHER SURGICAL HISTORY Right 07/2013 LAPAROSCOPIC PERITONEAL DIALYSIS CATHETER INSERTION - current dialysis access MWF dialysis OTHER SURGICAL HISTORY Left 06/24/2014 SUPERFICIALIZATION OF AV FISTULA - Procedure: AV FISTULA - SUPERFICIALIZATION; Surgeon: Emanuel Simon MD; Location: [facility]; Service: Vascular; Laterality: Left; OTHER SURGICAL HISTORY Left 04/08/2014 AV FISTULA PLACEMENT - Procedure: AV FISTULA; Surgeon: Rik Simon MD; Location: [facility]; Service: Vascular; Laterality: Left; cephalic OTHER SURGICAL HISTORY Left 03/07/2014 DECLOT GRAFT - Procedure: GRAFT - DECLOT; Surgeon: Rik Simon MD; Location: [facility] ; Service: Vascular; Laterality: Left; peritoneal [...] Value Units Date/Time Culture, Body Fluid Sterile [[id number]] Collected: 11/07/18 1515 Order Status: Completed Lab Status: Preliminary result Updated: 11/09/18 1412 Specimen: Body Fluid from Pleural Fluid, Right Special Requests RIGHT SIDE Special Requests Testing performed at [facility];[address] [place] [address] Gram Stain Result NO CELLS OR ORGANISMS SEEN RESULT NO GROWTH 2 DAYS RESULT Testing performed at [facility], [address] [place] [address] Comment: Testing performed at [facility], [address] [place] [address] Culture, Body Fluid Sterile [[id number]] Order Status: Canceled Lab Status: No result [...] DANIEL Follow Up: Jonathan Alonso MD [address] [facility] [place] [id number] In 1 week René Anguiano MD [address] [facility] [address] [place] [address] In [...] | | | renal disease) ([facility]) | protocol | | | | [...] her sister. DME equipment order sent to [facility]. She refused oxygen delivery [...] for continuity of chart review/care. Dictation software, [employer], was used which may contain error for [...] this note might be different from the [facility] Inpatient Progress Note Pt: Dara Louise AGE/SEX: 23 y.o. ROOM: [facility]/8125- : 1995 PCP: Jonathan Alonso MD [...] for continuity of chart review/care. Dictation software, [employer], was used which may contain error for [...] this note might be different from the [facility] Inpatient Progress Note Pt: Dara Louise AGE/SEX: 23 y.o. ROOM: [address] [place] [address] : 1995 PCP: Jonathan Alonso MD PATIENT [...] and dyspnea. The patient was seen at [facility] ER and then transferred to our [...] [address] | | | | | | [place] [address] | | | | | | [phone] | | | | | | | [...] + | Billie Gupta MD 11/09/2018 9:34 [facility] | | | Center Hemo-Dialysis Procedure note [...] | | . 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 Director Transition 240 | | | Constitutional: pt appears [...] | | | | | [place] [address] | | | | + + + + + + + + | Specimen | + + | Blood | + + + + + + + | Performing | Address | City/State/Zipcode | Phone Number | | Organization | | | | + + + + + | [facility] | [address] | [place] [address] | [phone] | + + + + + Comprehensive [...] Health, | | | | | | [place] [address] | | | | + + + + + + + + | Specimen | + + | Blood | + + + + + + + | Performing | Address | City/State/Zipcode | Phone Number | | Organization | | | | + + + + + | [facility] | [address] | [place] [address] | [phone] | + + + + + CBC [...] Torres, | | | | | | [place] [address] | | | | | | | | | | + + + + + + + + | Specimen | + + | Blood | + + + + + + + | Performing | Address | City/State/Zipcode | Phone Number | | Organization | | | | + + + + + | [facility] | [address] | [place] [address] | [phone] | + + + + + Protime INR (11/09/2018 4:14 AM PDT) + + + + + + | Component | Value | Ref Range | Performed | Pathologist | | | | | At | Signature | + + + + + + | INR | 1.3Comment: REFERENCE | | [facility] | | | | RANGE:0.9 [...] [facility];[address] | | [address];[place] | | | | | | [address] | | | | + + + + + + + + | Specimen | + + | Blood | + + + + + + + | Performing | Address | City/State/Zipcode | Phone Number | | Organization | | | | + + + + + | [facility] | [address] | [place] [address] | [phone] | + + + + + Comprehensive [...] 9 (L)Comment: GFR <60: | >60 | [facility] | | | GFR | [...] Hospital, | | | | | | [place] [address] | | | | + + + + + + + + | Specimen | + + | Blood | + + + + + + + | Performing | Address | City/State/Zipcode | Phone Number | | Organization | | | | + + + + + | [facility] | [address] | [place] [address] | [phone] | + + + + + CBC [...] Blvd, | | | | | | [place] [address] | | | | | |Testing performed at [facility], [address], [place] [address] | | | | | | | | | | + + +---- + + + + + | Specimen | + + | Blood | + + + + + + + | Performing | Address | City/State/Zipcode | Phone Number | | Organization | | | | + + + + + | [facility] | [address] | [place] [address] | [phone] | + + + + + Protime [...] | | | performed at [facility] | | | | | | [address] [facility];[place], [place] | | | | | | [address] | | | | + + + + + + + + | Specimen | + + | Blood | + + + + + + + | Performing | Address | City/State/Zipcode | Phone Number | | Organization | | | | + + + + + | [facility] | [address] | [place] [address] | [phone] | + + + + + XR [...] is | | | punctured with an 5-Romanian thoracentesis catheter. Fluid is aspirated | | [...] the pleural space is punctured with an 5-Romanian | | thoracentesis catheter. Fluid is aspirated [...] Special | Testing performed at | | [facility] | | | Requests | [facility];[address] | | LABORATORY | | | | [address];[place] [address] | | | | + + + + + + | Gram Stain | NO CELLS OR ORGANISMS | | [facility] | | | Result | SEEN | | LABORATORY | | + + + + + + | RESULT | NO GROWTH 4 DAYS | | [facility] | | | | | | LABORATORY | | + + + + + + | RESULT | Testing performed at | | [facility] | | | | TCL, [address] [facility] | | LABORATORY | | | | [place] | | | | | | [address]Kjxgynz: Testing | | | | | | performed at [facility], [address] | | | | | | [place] | | | | | | [address] | | | | + + + + + + + + | Specimen | + + | Body Fluid - Pleural | | fluid specimen | | (specimen) | + + + + + + + | Performing | Address | City/State/Zipcode | Phone Number | | Organization | | | | + + + + + | [facility] | [address] | [place] [address] | [phone] | + + + + + Protein, Body Fluid (11/07/2018 3:15 PM PDT) + + + + + + | Component | Value | Ref Range | Performed | Pathologist | | | | | At | Signature | + + + + + + | Protein, BF | 3.4Comment: This is not | g/dL | [facility] | | | | a return agent airport validated | | LABORATORY | | | [...] | | | | | [place] [address] | | | | + + + + + + | SOURCE | PLEURAL FLUIDComment: | | [facility] | | | | Testing performed at | | LABORATORY | | | | [facility];[address] [facility] | | | | | | [address];[place] [address] | | | | + + + + + + + + | Specimen | + + | Body Fluid | + + + + + + + | Performing | Address | City/State/Zipcode | Phone Number | | Organization | | | | + + + + + | [facility] | [address] | [place] [address] | [phone] | + + + + + Lactate [...] [facility] | | | FLUID | a return agent airport validated | | LABORATORY | | | [...] Health, | | | | | | [place] [address] | | | | + + + + + + + + | Specimen | + + | Body Fluid | + + + + + + + | Performing | Address | City/State/Zipcode | Phone Number | | Organization | | | | + + + + + | [facility] | [address] [facility] | [place] [address] | [phone] | + + + + + Glucose, Body Fluid (11/07/2018 3:15 PM PDT) + + + + + + | Component | Value | Ref Range | Performed | Pathologist | | | | | At | Signature | + + + + + + | Glucose | 96Comment: This is not a | mg/dL | [facility] | | | Fluid | return agent airport validated | | LABORATORY | | | | sample type for this | | | | | | method. No | | | | | | referenceranges have | | | | | | been established.Testing | | | | | | performed at [facility], [address] | | | | | [address], | | | | | | [place] [address] | | | | + + + + + + | SOURCE | PLEURAL FLUIDComment: | | [facility] | | | | Testing performed at | | LABORATORY | | | | [facility];[address] | | | | | | [address];[place] [address] | | | | + + + + + + + + | Specimen | + + | Body Fluid | + + + + + + + | Performing | Address | City/State/Zipcode | Phone Number | | Organization | | | | + + + + + | [facility] | [address] | [place] [address] | [phone] | + + + + + Cell [...] + + + | BF RBC | <55518 | /mm3 | [facility] | | | [...] | Counted | performed at [facility] | | LABORATORY | | | | [address];[place], [place] | | | | | | [address] | | | | + + + + + + + + | Specimen | + + | Body Fluid | + + + + + + + | Performing | Address | City/State/Zipcode | Phone Number | | Organization | | | | + + + + + | [facility] | [address] | [place] [address] | [phone] | + + + + + Amylase, Body Fluid (11/07/2018 3:15 PM PDT) + + + + + + | Component | Value | Ref Range | Performed | Pathologist | | | | | At | Signature | + + + + + + | AMYLASE | 46Comment: This is not a | U/L | [facility] | | | FLUID | return agent airport validated | | LABORATORY | | | | sample type for this | | | | | | method. No | | | | | | referenceranges have | | | | | | been established.Testing | | | | | | performed at [facility], [address] | | | | | | [address] [facility], | | | | | | [place] [address] | | | | + + + + + + + + | Specimen | + + | Body Fluid | + + + + + + + | Performing | Address | City/State/Zipcode | Phone Number | | Organization | | | | + + + + + | [facility] | [address] | [place] [address] | [phone] | + + + + + Albumin, Body Fluid (11/07/2018 3:15 PM PDT) + + + + + + | Component | Value | Ref Range | Performed | Pathologist | | | | | At | Signature | + + + + + + | Albumin, | 2.0Comment: This is not | g/dL | [facility] | | | Fluid | a return agent airport validated | | LABORATORY | | | [...] | | | | | [place] [address] | | | | + + + + + + + + | Specimen | + + | Body Fluid | + + + + + + + | Performing | Address | City/State/Zipcode | Phone Number | | Organization | | | | + + + + + | [facility] | [address] | [place] [address] | [phone] | + + + + + Medical [...] preparation was | | | performed by [employer], [address] [place] | | | [place] [address] (Needle Leader: Matt Claudio D.O.; CLIA#: | | | [id number]).Professional interpretation was performed by [employer] | | | [employer], | | | [facility] (Needle Leader: Daniel Larson M.D.; CLIA#: | | | [id number]).6 Diagnostician: Enrrique Nichols | | | CT(ASCP)CytotechnologistDiagnostician: [...] | | |Technical preparation was performed by [employer], [address] [address] (Needle Leader: Matt Claudio D.O.; CLIA#: [id number]). | | |Professional interpretation was performed by [employer] [address] (Needle Leader: Daniel Larson M.D.; CLIA#: [id number]).6 | | | | | |Diagnostician: Enrrique BROOKS(ASCP) | | |Nurse Researcher | | |Diagnostician: Daniel aLrson MD | | |Pathologist | | |Electronically [...] | | | | [facility];[address] [facility] | | | | | | Blvd;[place] [address] | | | | + + + + + + + + | Specimen | + + | Blood | + + + + + + + | Performing | Address | City/State/Zipcode | Phone Number | | Organization | | | | + + + + + | [facility] | [address] | [place] [address] | [phone] | + + + + + ECG [...] | INR | 1.3Comment: REFERENCE | | [facility] | | | | RANGE:0.9 [...] [facility];[address] | | | | | | [address] [facility];[place], [place] | | | | | | [address] | | | | + + + + + + + + | Specimen | + + | Blood | + + + + + + + | Performing | Address | City/State/Zipcode | Phone Number | | Organization | | | | + + + + + | [facility] | [address] | [place] [address] | [phone] | + + + + + Platelet [...] | | | | | [place] [address] | | | | + + + + + + + + | Specimen | + + | Blood | + + + + + + + | Performing | Address | City/State/Zipcode | Phone Number | | Organization | | | | + + + + + | [facility] | [address] | [place] [address] | [phone] | + + + + + PTT (11/07/2018 4:03 AM PDT) + + + + + + | Component | Value | Ref Range | Performed | Pathologist | | | | | At | Signature | + + + + + + | PTT | 27Comment: Testing | 23 - 32 seconds | [facility] | | | | performed at [facility];[address] | | LABORATORY | | | | [address];[place] | | | | | | [address] | | | | + + + + + + + + | Specimen | + + | Blood | + + + + + + + | Performing | Address | City/State/Zipcode | Phone Number | | Organization | | | | + + + + + | [facility] | [address] | [place] [address] | [phone] | + + + + + Lactate [...] performed at [facility];[address] | | LABORATORY | | | | [address];[place] | | | | | | [address] | | | | + + + + + + + + | Specimen | + + | Blood | + + + + + + + | Performing | Address | City/State/Zipcode | Phone Number | | Organization | | | | + + + + + | [facility] | [address] | [place] [address] | [phone] | + + + + + Magnesium [...] performed at [facility];[address] | | LABORATORY | | | | [address];[place], [place] | | | | | | [address] | | | | + + + + + + + + | Specimen | + + | Blood | + + + + + + + | Performing | Address | City/State/Zipcode | Phone Number | | Organization | | | | + + + + + | [facility] | [address] | [place] [address] | [phone] | + + + + + Comprehensive [...] 7 (L)Comment: GFR <60: | >60 | [facility] | | | GFR | [...] | | | | | | MDRD IDCT traceable | | | | | | equation.Testing | | | | | | performed at [facility], [address] | | | | | | [facility], | | | | | | [place] [address] | | | | + + + + + + + + | Specimen | + + | Blood | + + + + + + + | Performing | Address | City/State/Zipcode | Phone Number | | Organization | | | | + + + + + | [facility] | [address] | [place] [address] | [phone] | + + + + + Troponin I (11/06/2018 9:54 PM PDT) + + + + + + | Component | Value | Ref Range | Performed | Pathologist | | | | | At | Signature | + + + + + + | Troponin I | 0.045 (H)Comment: 0.04 | 0.00 - 0.04 | [facility] | | | | ng/mL [...] SOUTH;[address] | | | | | | [address];[place] [address] | | | | + + + + + + + + | Specimen | + + | Blood | + + + + + + + | Performing | Address | City/State/Zipcode | Phone Number | | Organization | | | | + + + + + | [facility] | [address] | [place] [address] | [phone] | + + + + + Protime [...] | | | performed at [facility] | | | | | | [address];[place], [place] | | | | | | [address] | | | | + + + + + + + + | Specimen | + + | Blood | + + + + + + + | Performing | Address | City/State/Zipcode | Phone Number | | Organization | | | | + + + + + | [facility] | [address] | [place] [address] | [phone] | + + + + + ECHO [...] 0.04 | 0.00 - 0.04 | [facility] | | | | ng/mL [...] | | | | | [facility];[address] [place] [address] | | | | | | [facility];[place] [address] | | | | + + + + + + + + | Specimen | + + | Blood | + + + + + + + | Performing | Address | City/State/Zipcode | Phone Number | | Organization | | | | + + + + + | [facility] | [address] | [place] [address] | [phone] | + + + + + Magnesium [...] | | | | | [place] [address] | | | | + + + + + + + + | Specimen | + + | Blood | + + + + + + + | Performing | Address | City/State/Zipcode | Phone Number | | Organization | | | | + + + + + | [facility] | [address] | [place] [address] | [phone] | + + + + + documented in this encounter Visit Diagnoses + + | Diagnosis | + + | Pulmonary edema with congestive heart failure with reduced left ventricular function | | (HCC) - Primary Congestive heart failure, unspecified | + + | Acute hypoxemic respiratory failure ([facility]) | + + | Chronic combined systolic [...] PRN, Nausea, Vomiting, | | | Starting [facility] 11/07/18 at 1401 | | + +---+ [...]
--- OUTSIDE RECORDS SUMMARY | ~2019-03-12 | XMS | Encounter Summary ---
Demographics + + + | Address | [address] | | | [place] [address] | + + + | Home Phone [...] | Author | [facility] | | | and [place] | + + + | Organization | [facility] | [...] Providers + +------+ + | Care Dairy Consultant Name | Role | Phone | [...] | | stage renal | [address] | [address] [place] [address] | | | | | disease) | Shun Griffin | [place] | | | | | ([facility]) | [address] | [address] [place] | | | | | Anemia in | [place], [place] | [place] | | | | | ESRD | [address] | [address] Phone: | | | | | (end-stage | Phone: | [phone] | | | | | renal | [phone] | Fax: | | | | | disease) | Fax: | [phone] | | | | | ([facility]) | [phone] | | | | | | Procedures [...] | | [address] | [place], [address] | (Primary Dx) | | | | [place], [place] | [place], [place] | | | | | [address] | [address] | | | | | [phone] | | | +--------+ + + + [...] week from records in [facility], per [facility] Nurse Elisabeth Portillo RN. Her BP, PO4, and PTH are consisently high. 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 [facility] risks of calciphylaxis. 4. 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 5. Will recheck her in 2 weeks. : [place] Fina Alonso MD, PhD documented in thi [...] [address] | | | | | | [place] [address] | | | | | | [phone] | | | | | | | | +--------+---------+ + + + documented as of this encounter Visit Diagnoses + + | Diagnosis | + + | ESRD (end stage renal disease) (HCC) - Primary End stage renal disease | + + documented in this encounter"
--- OUTSIDE RECORDS SUMMARY | ~2019-03-12 | XMS | Encounter Summary ---
Demographics + + + | Address | [address] | | | [place] [address] | + + + | Home Phone [...] | | | | | [place] [address] | | + + + + + | Thania Mallory | ECON | [address] | | | | | [place] [address] | | + + + + + | Deidra Weldon | ECON | [address] | | | | | [place] | | | | | [address] | | + + + + + Care Team Providers + +------+ + | Care Hydraulic Technician Name | Role | Phone | [...] | Update | | | | [address] [facility] | [facility] | | | | | [facility], | [place], [place] | | | | | [place] [address] | [address] | | | | | [phone] | | | +--------+ + + + [...] [facility] | | | | | | [address] | | | | | | [phone] | | | | | | | | +--------+ + + + + documented as of this encounter Visit Diagnoses Not on filedocumented in this encounter"
--- OUTSIDE RECORDS SUMMARY | ~2019-03-12 | XMS | Encounter Summary ---
Demographics + + + | Address | [address] | | | [place] [address] | + + + | Home Phone [...] Author | [facility] | | | and [place] | + + + | Organization | [facility] [...] Providers + +------+ + | Care Electronics Processing Supervisor Name | Role | Phone [...] NEPHROLOGY [address] | M, DO [address] | | | | | [address] | [place] | | | | | [place], [place] | [place], [place] | | | | | [address] | [address] | | | | | [phone] | | | +--------+ + + + [...] [address] | | | | | | [place] [address] | | | | | | [phone] | | | | | | | | +--------+---------+ + + + documented as of this encounter Visit Diagnoses Not on filedocumented in this encounter"
--- OUTSIDE RECORDS SUMMARY | ~2019-03-12 | XMS | Encounter Summary ---
Demographics + + + | Address | [address] | | | [place] [address] | + + + | Home Phone [...] | | | | | [place] [address] | | + + + + + | Thania Mallory | ECON | [address] | | | | | [place] [address] | | + + + + + | Deidra Weldon | ECON | [address] | | | | | [place] | | | | | [address] | | + + + + + Care Team Providers + +------+ + | Care Tax Adjuster Name | Role | Phone | [...] | | | | [address] [place] | [facility] | | | | | [facility], | [place], [place] | | | | | [place] [address] | [address] | | | | | [phone] | | | +--------+ + + + [...] Denise | | | | | | [place] | | | | | | [address] | | | | | | [phone] | | | | | | | | +--------+ + + + + documented as of this encounter Visit Diagnoses Not on filedocumented in this encounter"
--- OUTSIDE RECORDS SUMMARY | ~2019-03-12 | XMS | Encounter Summary ---
Demographics + + + | Address | [address] | | | [place] [address] | + + + | Home Phone [...] | | | | | [place] [address] | | + + + + + | Thania Mallory | ECON | [address] | | | | | [place] [address] | | + + + + + | Deidra Weldon | ECON | [address] | | | | | [place] | | | | | [address] | | + + + + + [...] [address] [facility] [address] | [facility] | | | | | [place], [place] | [place] [address] | | | | | [address] | [phone] | | | | | | | [...] from patient and her family Pharmacy Preferences: [id number] [address] [place] [address] Updated Outpatient Medications: Current Medication List Name [...] questions regarding this information contact pharmacy, pager #[phone] Thank you, Juan David Batres Pager [phone] signed by Juan David Batres PharmEmanuel at [...] Denise | | | | | | [place] | | | | | | [address] | | | | | | [phone] | | | | | | | | +--------+ + + + + documented as of this encounter Visit Diagnoses Not on filedocumented in this encounter"
--- OUTSIDE RECORDS SUMMARY | ~2019-03-12 | XMS | Encounter Summary ---
Demographics + + + | Address | [address] | | | [place] [address] | + + + | Home Phone [...] Author | [facility] | | | and [place] | + + + | Organization | [facility] | | [...] Providers + +------+ + | Care Airport Manager Name | Role | Phone | [...] NEPHROLOGY [address] | M, DO [address] | | | | | [address] | [place] | | | | | [place], [place] | [place], [place] | | | | | [address] | [address] | | | | | [phone] | | | +--------+ + + + [...] [place] | | | | | | [place] [address] | | | | | | [phone] | | | | | | | | +--------+---------+ + + + documented as of this encounter Visit Diagnoses Not on filedocumented in this encounter"
--- OUTSIDE RECORDS SUMMARY | ~2019-03-12 | XMS | Encounter Summary ---
Demographics + + + | Address | [address] | | | [place] [address] | + + + | Home Phone [...] | [facility] | | | and [place] | + + + | Organization | [facility] [...] Providers + +------+ + | Care Stone Lathe Operator Name | Role | Phone | + +------+ + PCP | Unavailable | + +------+ + Encounter Details +--------+ + + + + | Date | Type | Department | Care Team | Description | +--------+ + + + + | 03/07/ | Hospital | [facility] | Rik Simon MD | Complication of AV | | 2015 | Encounter | [facility] | [address] | dialysis fistula, | | | | [address]PER[address] | [place], [place] | initial encounter | | | | [address] | [address] | ([facility]) | | | | [place], [place] | [phone] | | | | | [address] | | | | | | [phone] | | | +--------+ + + + [...] [place] | | | | | | [place] [address] | | | | | | [phone] | | | | | | | [...] preparation was performed | | | by [facility], [address], | | | [place] [address] (Biology Teacher: Daniel Larson M.D.; | | | [facility]#: [id number]). Diagnostician: Anahy Da Silva MD Pathologist | [...] LAB | | | | Blvd;[place] [address] | | | | + + + + + + | Antibody | NEGATIVE | | EXTERNAL | | | Screen | | | LAB | | + + + + + + | Antibody | Testing performed at | | EXTERNAL | | | Screen | [facility] | | LAB | | | | [address];[place] [address] | | | | + + + + + + | BB BAND | [id number] | | EXTERNAL | | | | | | LAB | | + + + + + + | BB BAND | Testing performed at | | EXTERNAL | | | | [facility] | | LAB | | | | [address];[place] [address] | | | | + + + [...] | | | | | ONLY, -COMPUTER ([id number]), | | | | | | electronic news gathering editor ROBERT BOOKER ([id number]) | | | | | | on 03/07/2014 6:28:09 PM | | | | + + + + + + + + | Specimen | + + | | + + + + + | Narrative | Performed At | + + + | Historically converted procedure from [facility] environment | EXTERNAL LAB | | Lul Elizabeth MD 03/08/2014 2:32 AM [facility] | | | [place] Department of Emergency Medicine 4:10 PM History [...] | | | a half ago in [place]. She is still using a right subclavian [...] | | Provider folic acid-vitamin b complex-vitamin r-rdianclz-kfem | | | (DIALYVITE) 3 MG TABS [...] Negative for chest pain, | | | cawjkjkrd-zc-ldzcsw, or cough GI: Negative for abdominal pain, [...] Date/Time Complete Metabolic | | | Panel [[id number]] (Abnormal) Collected: 03/07/141624 Order | | | [...] LT 21 YEARS. | | | PTT [[id number]] Collected: 03/07/141624 Order Status: | | | Completed Updated: 03/07/141704 Specimen Information: | | | Blood APTT 29 23 - 32 seconds CBC w Auto Diff [[id number]] | | | (Abnormal) Collected: 03/07/14 1625 [...] | Rik Simon MD In [address] [place] [address] | | | [phone] Discharge Medications: Discharge Medication | | | [...] Patient | performed at [facility];[address] | | LAB | | | | [address];[place] | | | | | | [address] | | | | + + + [...] | | performed at [facility];[address] | | LAB | | | | [address];[place] | | | | | | [address] | | | | + + + + + + | RED CELL | 3.70Comment: Testing | 3.70 - 5.10 | EXTERNAL | | | COUNT | performed at [facility];[address] | M/uL | LAB | | | | [address];[place] | | | | | | [address] | | | | + + + + + + | Hgb | 12.9Comment: Testing | 11.3 - 15.5 | EXTERNAL | | | | performed at [facility];888 | g/dL | LAB | | | | [address];[place] | | | | | | [address] | | | | + + + + + + | Hematocrit, | 38.9Comment: Testing | 34.0 - 46.0 % | EXTERNAL | | | POC | performed at [facility];[address] | | LAB | | | | [address];[place] | | | | | | [address] | | | | + + + + + + | MCV | 105.2 (H)Comment: | 80.0 - 100.0 fl | EXTERNAL | | | | Testing performed at | | LAB | | | | [facility];[address] | | | | | | [address];[place] [address] | | | | + + + + + + | MCH | 35.0 (H)Comment: Testing | 27.0 - 34.0 pg | EXTERNAL | | | | performed at [facility];[address] | | LAB | | | | [address];[place] | | | | | | [address] | | | | + + + + + + | MCHC | 33.3Comment: Testing | 32.0 - 35.5 | EXTERNAL | | | | performed at [facility];888 | g/dL | LAB | | | | [address];[place] | | | | | | [address] | | | | + + + + + + | RDW-CV | 51.6Comment: Testing | 37 - 53 fl | EXTERNAL | | | | performed at [facility];[address] | | LAB | | | | [address];[place] | | | | | | [address] | | | | + + + + + + | Platelet | 175Comment: Testing | 150 - 400 K/uL | EXTERNAL | | | Count | performed at [facility];[address] | | LAB | | | Plasma | [address];[place] | | | | | | [address] | | | | + + + + + + | MPV | 8.9Comment: Testing | fl | EXTERNAL | | | | performed at [facility];[address] | | LAB | | | | [address];[place] | | | | | | [address] | | | | + + + + + + | Differentia | AUTOMATEDComment: | | EXTERNAL | | | l Type | Testing performed at | | LAB | | | | [facility];[address] | | | | | | [address];[place] [address] | | | | + + + + + + | % Segmented | 71.7Comment: Testing | % | EXTERNAL | | | | performed at [facility];[address] | | LAB | | | Neutrophils | [address];[place] | | | | | | [address] | | | | + + + + + + | % | 19.5Comment: Testing | % | EXTERNAL | | | Lymphocytes | performed at [facility];[address] | | LAB | | | | [address];[place] | | | | | | [address] | | | | + + + + + + | % Monocytes | 6.7Comment: Testing | % | EXTERNAL | | | | performed at [facility];[address] | | LAB | | | | [address];[place] | | | | | | [address] | | | | + + + + + + | % | 1.6Comment: Testing | % | EXTERNAL | | | Eosinophils | performed at [facility];[address] | | LAB | | | | [address];[place] | | | | | | [address] | | | | + + + + + + | % Basophils | 0.5Comment: Testing | % | EXTERNAL | | | | performed at [facility];[address] | | LAB | | | | [address];[place] | | | | | | [address] | | | | + + + + + + | Absolute | 5.6Comment: Testing | 1.9 - 7.4 K/uL | EXTERNAL | | | Segmented | performed at [facility];888 | | LAB | | | Neutrophils | [address];[place] | | | | | | [address] | | | | + + + + + + | Absolute | 1.5Comment: Testing | 1.0 - 3.9 K/uL | EXTERNAL | | | Lymphocytes | performed at [facility];[address] | | LAB | | | | [address];[place] | | | | | | [address] | | | | + + + + + + | Absolute | 0.5Comment: Testing | 0 - 0.8 K/uL | EXTERNAL | | | Monocytes | performed at [facility];[address] | | LAB | | | | [address];[place] | | | | | | [address] | | | | + + + + + + | Absolute | 0.1Comment: Testing | 0 - 0.5 K/uL | EXTERNAL | | | Eosinophils | performed at [facility];[address] | | LAB | | | | [address];[place] | | | | | | [address] | | | | + + + + + + | Absolute | 0.0Comment: Testing | 0 - 0.1 K/uL | EXTERNAL | | | Basophils | performed at [facility];[address] | | LAB | | | | [address];[place] | | | | | | [address] | | | | + + + [...] | | performed at [facility];888 | mmol/L | LAB | | | | [address];[place] | | | | | | [address] | | | | + + + + + + | K | 3.9Comment: Testing | 3.5 - 4.9 | EXTERNAL | | | | performed at [facility];888 | mmol/L | LAB | | | | [address];[place] | | | | | | [address] | | | | + + + + + + | Cl | 103Comment: Testing | 99 - 109 mmol/L | EXTERNAL | | | | performed at [facility];[address] | | LAB | | | | [address];[place] | | | | | | [address] | | | | + + + + + + | CO2 | 26Comment: Testing | 23 - 32 mmol/L | EXTERNAL | | | | performed at [facility];[address] | | LAB | | | | [address];[place] | | | | | | [address] | | | | + + + + + + | Anion Gap | 12Comment: Testing | 5 - 20 mmol/L | EXTERNAL | | | | performed at [facility];[address] | | LAB | | | | [address];[place] | | | | | | [address] | | | | + + + + + + | Glucose, | 78Comment: Testing | 65 - 99 mg/dL | EXTERNAL | | | Fasting | performed at [facility];[address] | | LAB | | | | [address];[place] | | | | | | [address] | | | | + + + + + + | BUN | 12Comment: Testing | 8 - 25 mg/dL | EXTERNAL | | | | performed at [facility];[address] | | LAB | | | | [address];[place] | | | | | | [address] | | | | + + + + + + | Creatinine | 3.51 (H)Comment: Testing | 0.50 - 1.00 | EXTERNAL | | | | performed at [facility];888 | mg/dL | LAB | | | | [address];[place] | | | | | | [address] | | | | + + + + + + | BUN/Creatin | 4Comment: Testing | | EXTERNAL | | | ine Ratio | performed at [facility];[address] | | LAB | | | | [address];[place] | | | | | | [address] | | | | + + + + + + | Calcium | 9.6Comment: Testing | 8.5 - 10.2 | EXTERNAL | | | | performed at [facility];888 | mg/dL | LAB | | | | [address];[place] | | | | | | [address] | | | | + + + + + + | Protein, | 8.1Comment: Testing | 6.3 - 8.2 g/dL | EXTERNAL | | | Total | performed at [facility];[address] | | LAB | | | | [address];[place] | | | | | | [address] | | | | + + + + + + | Albumin | 3.7Comment: Testing | 3.6 - 5.0 g/dL | EXTERNAL | | | | performed at [facility];[address] | | LAB | | | | [address];[place] | | | | | | [address] | | | | + + + + + + | Globulin | 4.3Comment: Testing | 1.3 - 4.9 g/dL | EXTERNAL | | | | performed at [facility];[address] | | LAB | | | | [address];[place] | | | | | | [address] | | | | + + + + + + | A/G Ratio | 0.9 (L)Comment: Testing | 1.0 - 2.4 | EXTERNAL | | | | performed at [facility];[address] | | LAB | | | | [address];[place] | | | | | | [address] | | | | + + + + + + | Bilirubin | 0.4Comment: Testing | 0.1 - 1.5 mg/dL | EXTERNAL | | | Total | performed at [facility];[address] | | LAB | | | | [address];[place] | | | | | | [address] | | | | + + + + + + | ALP, | 121 (H)Comment: Testing | 35 - 115 U/L | EXTERNAL | | | External | performed at [facility];[address] | | LAB | | | | [address];[place] | | | | | | [address] | | | | + + + + + + | AST | 20Comment: Testing | 10 - 45 U/L | EXTERNAL | | | | performed at [facility];[address] | | LAB | | | | [address];[place] | | | | | | [address] | | | | + + + + + + | ALT | 38Comment: Testing | 10 - 65 U/L | EXTERNAL | | | | performed at [facility];[address] | | LAB | | | | [address];[place] | | | | | | [address] | | | | + + + + + + | Estimated | CALCULATION NOT | mL/min/1.73m2 | EXTERNAL | | | GFR | PERFORMED. RESULT NOT | | LAB | | | | VALID IF AGE LT 20 | | | | | | YEARS.Comment: Testing | | | | | | performed at [facility];[address] | | | | | | [facility];[place], [place] | | | | | | [address] | | | | + + + [...]
--- OUTSIDE RECORDS SUMMARY | ~2019-03-12 | XMS | Encounter Summary ---
Demographics + + + | Address | [address] | | | [place] [address] | + + + | Home Phone [...] Author | [facility] | | | and [place] | + + + | Organization | [facility] [...] Team Providers + +------+ + | Care Ux Design Manager Name | Role | Phone | [...] | | | | | | [place] | | | | | | | [...] + + | 02/24/ | Anesthesia | [facility] | Celso Dacosta | Obesity (BMI | | 2013 | Event | MED CTR OR INTRA OP | MD Douglas [address] | 30.0-34.9) (Primary | | | | [address] | [address] [place] | Dx) | | | | [place] | [address] | | | | | [address] | | | | | | [phone] | | | +--------+ + + + [...] +----+---+ + + | | 0 | [place] | | | | 7 | 43-degrees [...] +----+---+ + + | | 1 | [place] off | | | | 0 | [...] | [READ | (present [facility] | 02/24/14 1045 by | 05/28/18 [...] | [READ | (present upon arrival to [facility]); | 02/24/14 1049 by | 05/28/18 [...] E | | | | | | [place] [address] | | | | | | [phone] | | | | | | | [...]
--- OUTSIDE RECORDS SUMMARY | ~2019-03-12 | XMS | Encounter Summary ---
Demographics + + + | Address | [address] | | | [place] [address] | + + + | Home Phone [...] | Author | [facility] | | | and [place] | + + + | Organization | [facility] [...] Team Providers + +------+ + | Care Accountant Budget Name | Role | Phone | + [...] [address] | | | | | ([facility]) | [address] [place] | [place], | | | | | | [place], [place] | [place] [address] | | | | | | [address] | Phone: | | | | | | Phone: | [phone] | | | | | | [phone] | Fax: | | | | | | Fax: | [phone] | | | | | | [phone] | | +--------+ + + + + + Encounter Details +--------+ + + + + | Date | Type | Department | Care Team | Description | +--------+ + + + + | 02/03/ | Orders Only | [facility] | Jorje Camp | ESRD (end stage | | 2013 | | NEPHROLOGY [address] | M, DO | renal disease) ([facility]) | | | | [address] | [place], [address] | (Primary Dx) | | | | [place], [place] | [place], [place] | | | | | [address] | [address] | | | | | [phone] | | | +--------+ + + + [...] [place] | | | | | | [place] [address] | | | | | | [phone] | | | | | | | [...] | Referral | e | renal disease) ([facility]) | | | Referral | | | | | + + +--------+ + + documented as of this encounter Visit Diagnoses + + | Diagnosis | + + | ESRD (end stage renal disease) ([facility]) - Primary End stage renal disease | + + documented in this encounter"
--- OUTSIDE RECORDS SUMMARY | ~2019-03-12 | XMS | Encounter Summary ---
Demographics + + + | Address | [address] | | | [place] [address] | + + + | Home Phone [...] [facility] | | | and [place] | + + + | Organization | [facility] | | [...] + +------+ + | Care Manager Of Care Name | Role | Phone | [...] | | | | | malfunction, | [address] | [address] | | | | | initial | [address] [place] | [place], | | | | | encounter | [place], [place] | [place] [address] | | | | | ([facility]LY [facility]) | [address] | Phone: | | | | | | Phone: | [phone] | | | | | | [phone] | Fax: | | | | | | Fax: | [phone] | | | | | | [phone] | | +--------+ + + + + [...] fistula | MD [address] | | | | | malfunction, | [address] [place] | [place], | | | | | initial | [address] [place] | [place] [address] | | | | | encounter | [place], [place] | Phone: | | | | | ([facility]) | [address] | [phone] | | | | | Procedures | Phone: | Fax: | | | | | IR Procedure | [phone] | [phone] | | | | | [address] | Fax: | | | | | | NEEDLE/CATH | [phone] | | | | | | A-V [...] NEPHROLOGY [address] | MD [address] | malfunction, initial | | | | [address] | [address] [place] | encounter (HCC) | | | | [place], [place] | [place] [address] | (Primary Dx) | | | | [address] | [phone] | | | | | [phone] | | | +--------+ + + + [...] [place] | | | | | | [place] [address] | | | | | | [phone] | | | | | | | [...] Dialysis AV fistula malfunction, initial encounter ([facility]) - Primary | + + documented in this encounter"
--- OUTSIDE RECORDS SUMMARY | ~2019-03-12 | XMS | Encounter Summary ---
Demographics + + + | Address | [address] | | | [place] [address] | + + + | Home Phone [...] Author | [facility] | | | and [place] | + + + | Organization | [facility] | | [...] Providers + +------+ + | Care Stitcher Feeder Name | Role | Phone | [...] | | [address] | [place], [address] | | | | | [place], [place] | [place], [place] | | | | | [address] | [address] | | | | | [phone] | | | +--------+--------+ + + + [...] [place] | | | | | | [place] [address] | | | | | | [phone] | | | | | | | | +--------+---------+ + + + documented as of this encounter Visit Diagnoses Not on filedocumented in this encounter"
--- OUTSIDE RECORDS SUMMARY | ~2019-03-12 | XMS | Encounter Summary ---
Demographics + + + | Address | [address] | | | [place] [address] | + + + | Home Phone [...] Author | [facility] | | | and [place] | + + + | Organization | [facility] | [...] Providers + +------+ + | Care Head Porter Baggage Name | Role | Phone | + [...] | | KIDNEY TRANSPLANT | [address], | | | | | [address] [place] | [place] [address] | | | | | [address] [place], [place] | [phone] | | | | | [address] | | | | | | [phone] | | | +--------+ + + + [...] [place] | | | | | | [place] [address] | | | | | | [phone] | | | | | | | | +--------+---------+ + + + documented as of this encounter Visit Diagnoses Not on filedocumented in this encounter"
--- OUTSIDE RECORDS SUMMARY | ~2019-03-12 | XMS | Encounter Summary ---
Demographics + + + | Address | [address] | | | [place] [address] | + + + | Home Phone [...] | Author | [facility] | | | and Josephana | + + + | Organization | [facility] | | | [...] Providers + +------+ + | Care Tool Pusher Name | Role | Phone | + +------+ + PCP | Unavailable | + +------+ + Encounter Details +--------+ + + + + | Date | Type | Department | Care Team | Description | +--------+ + + + + | 06/24/ | Hospital | [facility] | Rik Simon MD | | | 2015 | Encounter | [facility] | [address] | | | | | [address] | [place], [place] | | | | | [place], [place] | [address] | | | | | [address] | [phone] | | | | | [phone] | | | +--------+ + + + [...] 06/24/141340 Date of Service: 06/24/141340 Status: Signed Director Of Patient Financial Services: Merlin Carter RPH (Pharmacist) Clinical Pharmacy Note: [...] 1.00 mg/dL Final Testing performed at [facility];[address];[place] [address] CREATININE: 7.55 mg/dL ABNORMAL (06/24/14 1045) Estimated creatinine clearance - 14.7 mL/min Pharmacy dosing for renal function per Dr. Simon. Currently, there are no medications needing to be adjusted. Pharmacy will continue to monit or for changes in medication orders and in renal function and adjust accordingly. Merlin Carter [facility] 06/24/2014 1:41 PM docume nted [...] [address] | | | | | | [place] [address] | | | | | | [phone] | | | | | | | [...] LAB | | | | Blvd;[place] [address] | | | | + + + + + + | Antibody | NEGATIVE | | EXTERNAL | | | Screen | | | LAB | | + + + + + + | Antibody | Testing performed at | | EXTERNAL | | | Screen | [facility];[address] | | LAB | | | | Blvd;[place] [address] | | | | + + + + + + | BB BAND | [id number] | | EXTERNAL | | | | | | LAB | | + + + + + + | BB BAND | Testing performed at | | EXTERNAL | | | | [facility];[address] | | LAB | | | | Blvd;[place] [address] | | | | + + + [...] performed at [facility] | | | | | | [facility];[place], [place] | | | | | | [address] | | | | + + + [...] | | QUALITATIVE | performed at [facility] | | LAB | | | | [address];[place], [place] | | | | | | [address] | | | | + + + [...] [facility];[address] | mmol/L | LAB | | | | [address];[place], [place] | | | | | | [address] | | | | + + + + + + | K | 4.3Comment: Testing | 3.5 - 4.9 | EXTERNAL | | | | performed at [facility];[address] | mmol/L | LAB | | | | [address];[place] | | | | | | [address] | | | | + + + + + + | Cl | 101Comment: Testing | 99 - 109 mmol/L | EXTERNAL | | | | performed at [facility];[address] | | LAB | | | | [address];[place] | | | | | | [address] | | | | + + + + + + | CO2 | 23Comment: Testing | 23 - 32 mmol/L | EXTERNAL | | | | performed at [facility];[address] | | LAB | | | | [address];[place] | | | | | | [address] | | | | + + + + + + | Anion Gap | 16Comment: Testing | 5 - 20 mmol/L | EXTERNAL | | | | performed at [facility];[address] | | LAB | | | | [address];[place] | | | | | | [address] | | | | + + + + + + | Glucose, | 84Comment: Testing | 65 - 99 mg/dL | EXTERNAL | | | Fasting | performed at [facility];[address] | | LAB | | | | [address];[place] | | | | | | [address] | | | | + + + + + + | BUN | 40 (H)Comment: Testing | 8 - 25 mg/dL | EXTERNAL | | | | performed at [facility];[address] | | LAB | | | | [address];[place] | | | | | | [address] | | | | + + + + + + | Creatinine | 7.55 (H)Comment: Testing | 0.50 - 1.00 | EXTERNAL | | | | performed at [facility];888 | mg/dL | LAB | | | | [address];[place] | | | | | | [address] | | | | + + + + + + | BUN/Creatin | 5Comment: Testing | | EXTERNAL | | | ine Ratio | performed at [facility];[address] | | LAB | | | | [address];[place] | | | | | | [address] | | | | + + + + + + | Calcium | 9.8Comment: Testing | 8.5 - 10.5 | EXTERNAL | | | | performed at [facility];888 | mg/dL | LAB | | | | [address];[place] | | | | | | [address] | | | | + + + [...] CITY;[address] | | | | | | [address];[place] | | | | | | [address] | | | | + + + [...]
--- OUTSIDE RECORDS SUMMARY | ~2019-03-12 | XMS | Encounter Summary ---
Demographics + + + | Address | [address] | | | [place] [address] | + + + | Home Phone [...] + | Author | [facility] | | | and Josephana | + + + | Organization | [facility] [...] + +------+ + | Care Soil Science Technical Officer Name | Role | Phone [...] NEPHROLOGY [address] | MD [address] | (Asymptomatic) | | | | [address] | [address] [place] | | | | | [place], [place] | [place] [address] | | | | | [address] | [phone] | | | | | [phone] | | | +--------+ + + + [...] AM PDTHEMO progress note manually faxed to [facility] [place], e-faxed to Lianna [facility] Pediatric Nephrology on 08/04 03/19. Daniela Marquez M D - 07/29/2013 1:57 PM PDT Comprehensive Dialysis Monthly Note Date of visit: 07/29/2013 [address]ialysis Clinic: 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 Anemia in ESRD (end-stage renal disease) [...] donor. Pt has been referred t o [facility]. 9. Peritonitis, MSSA. On Keflex. [facility] Lianna Joy, [facility] Pediatric Nephrology documented in this encounter Plan [...] [address] | | | | | | [place] [address] | | | | | | [phone] | | | | | | | | +--------+---------+ + + + documented as of this encounter Visit Diagnoses + + | Diagnosis | + + | ESRD (end stage renal disease) (HCC) - Primary End stage renal disease | + + | Anemia in ESRD (end-stage renal disease) ([facility]) Anemia in chronic kidney disease | + + | Secondary hyperparathyroidism (HCC) Secondary hyperparathyroidism (of renal origin) | + + | Peritonitis, dialysis-associated, initial encounter (HCC) | + + documented in this encounter"
--- OUTSIDE RECORDS SUMMARY | ~2019-03-12 | XMS | Encounter Summary ---
[...] Providers + +------+ + | Care Twister Tender Paper Name | Role | Phone | + [...] + + | 12/19/ | Telephone | [facility] | George Torres RN | Congestive Heart | | 2019 | | [address] | | Failure (Reviewed | | | | [place], [place] | | for CHF Quality | | | | [address] | | Measures) | | | | [phone] | | | +--------+ + + + [...] [address] | | | | | | [place] [address] | | | | | | [phone] | | | | | | | | +--------+---------+ + + + documented as of this encounter Visit Diagnoses Not on filedocumented in this encounter"
--- OUTSIDE RECORDS SUMMARY | ~2019-03-12 | XMS | Encounter Summary ---
Demographics + + + | Address | [address] | | | [place] [address] | + + + | Home Phone [...] | Author | [facility] | | | and Josephana | + + + | Organization | [facility] | [...] + +------+ + | Care Manager Transportation Planning Name | Role | Phone | + [...] | NEPHROLOGY [address] | [address] | | | | | [address] | [address] [place] | | | | | [place], [place] | [place] [address] | | | | | [address] | [phone] | | | | | [phone] | | | +--------+ + + + [...] | | | | | [place] [address] | | | | | | [phone] | | | | | | | | +--------+---------+ + + + documented as of this encounter Visit Diagnoses Not on filedocumented in this encounter"
--- OUTSIDE RECORDS SUMMARY | ~2019-03-12 | XMS | Encounter Summary ---
Demographics + + + | Address | [address] | | | [place] [address] | + + + | Home Phone [...] Author | [facility] | | | and Josephana | + + + | Organization | [facility] | | [...] Providers + +------+ + | Care Physician Extender Name | Role | Phone | + [...] | stage renal | [address] | [address] [place] [address] | | | | | disease) | Shun Griffin | [place] | | | | | ([facility]) | [address] | [address] [place] | | | | | Anemia in | [place], [place] | [place] | | | | | ESRD | [address] | [address] Phone: | | | | | (end-stage | Phone: | [phone] | | | | | renal | [phone] | Fax: | | | | | disease) | Fax: | [phone] | | | | | ([facility]) | [phone] | | | | | | Procedures [...] | | [address] | [place] | (Primary Dx) | | | | [place], [place] | [place], [place] | | | | | [address] | [address] | | | | | [phone] | | | +--------+ + + + [...] parathyroidectomy she should let myself or the wire charger no. She will be rechecked in 2 weeks. : Burke Fina documented in t his encounter Plan [...] | | | | | [place] [address] | | | | | | [phone] | | | | | | | | +--------+---------+ + + + documented as of this encounter Visit Diagnoses + + | Diagnosis | + + | ESRD (end stage renal disease) (HCC) - Primary End stage renal disease | + + documented in this encounter"
--- OUTSIDE RECORDS SUMMARY | ~2019-03-12 | XMS | Encounter Summary ---
Demographics + + + | Address | [address] | | | [place] [address] | + + + | Home Phone [...] | | | | | [place] [address] | | + + + + + | Thania Mallory | ECON | [address] | | | | | [place] [address] | | + + + + + | Deidra Weldon | ECON | [address] | | | | | [place] | | | | | [address] | | + + + + + Care Team Providers + +------+ + | Care Wreath And Garland Maker Name | Role | Phone | [...] | | | | [address] [place] | [facility] | | | | | [address] [place], | [place], [place] | | | | | [place] [address] | [address] | | | | | [phone] | | | +--------+ + + + [...] | | | | | | [place] | | | | | | [address] | | | | | | [phone] | | | | | | | | +--------+ + + + + documented as of this encounter Visit Diagnoses Not on filedocumented in this encounter"
--- OUTSIDE RECORDS SUMMARY | ~2019-03-12 | XMS | Encounter Summary ---
Demographics + + + | Address | [address] | | | [place] [address] | + + + | Home Phone [...] Author | [facility] | | | and Josephana | + + + | Organization | [facility] [...] Providers + +------+ + | Care Sewing Machine Attachment Tester Name | Role | Phone | [...] | | | | [address] | [place], [place] | [place], [place] | | | | | stage renal | [address] | [address] Phone: | | | | | disease | Phone: | [phone] | | | | | ([facility]) | [phone] | Fax: | | | | | Infection | Fax: | [phone] | | | | | and | [phone] | | | | | | inflammatory [...] | | [address] | [place], [address] | (Primary Dx) | | | | [place], [place] | [place], [place] | | | | | [address] | [address] | | | | | [phone] | | | +--------+ + + + [...] into the vein Three times a w [place]. epoetin jenna (EPOGEN, PROCRIT) 10,000 units/mL injection [...] she should keep up t his effort fdc. 3. Heat, Daniel Denny, OTC, and tramadol, short term for her back. 4. Will recheck her in 1 week. CC: Hudson Fina Joy MD, [facility], [facility] signed by Jorje Camp DO at 10/27/2014 [...] [address] | | | | | | [place] [address] | | | | | | [phone] | | | | | | | | +--------+---------+ + + + documented as of this encounter Visit Diagnoses + + | Diagnosis | + + | ESRD (end stage renal disease) (HCC) - Primary End stage renal disease | + + documented in this encounter
--- OUTSIDE RECORDS SUMMARY | ~2019-03-12 | XMS | Encounter Summary ---
Demographics + + + | Address | [address] | | | [place] [address] | + + + | Home Phone [...] | Author | [facility] | | | and Josephana | + + + | Organization | [facility] [...] Team Providers + +------+ + | Care Facetor Name | Role | Phone | + [...] [address] [place] | [place] [address] | to return call to | | | | [address] | [phone] | complete intake | | | | [address] | | quest.) | | | | [phone] | | | +--------+ + + + [...] | | | | | [place] [address] | | | | | | [phone] | | | | | | | | +--------+---------+ + + + documented as of this encounter Visit Diagnoses Not on filedocumented in this encounter"
--- OUTSIDE RECORDS SUMMARY | ~2019-03-12 | XMS | Encounter Summary ---
Demographics + + + | Address | [address] | | | [place] [address] | + + + | Home Phone [...] | | | | | [place] [address] | | + + + + + | Thania Mallory | ECON | [address] | | | | | [place] [address] | | + + + + + | Deidra Weldon | ECON | [address] | | | | | [place] | | | | | [address] | | + + + + + Care Team Providers + +------+ + | Care Electric Meter Inspector Name | Role | Phone | + +------+ + | Shahid Camargo MD | PCP | | + +------+ + Encounter Details +--------+ + + + + | Date | Type | Department | Care Team | Description | +--------+ + + + + | 12/20/ | Hospital | Radiology at [facility] | | | | 2012 | Encounter | [address] | | | | | | Mailcode: L340 | | | | | | [place] | | | | | | [place], [place] | | | | | | [address] | | | | | | [phone] | | | +--------+ + + + [...] [place] | | | | | | [address] | | | | | | [phone] | | | | | | | [...] | e | 9:27 AM | MEDICARE 1018 | procedure are in the | | [...]
--- OUTSIDE RECORDS SUMMARY | ~2019-03-12 | XMS | Encounter Summary ---
Demographics + + + | Address | [address] | | | [place] [address] | + + + | Home Phone [...] Author | [facility] | | | and [place]ana | + + + | Organization | [facility] [...] Providers + +------+ + | Care Cell Tower Climber Name | Role | Phone | + +------+ + PCP | Unavailable | + +------+ + Encounter Details +--------+ + + + + | Date | Type | Department | Care Team | Description | +--------+ + + + + | 03/19/ | Hospital | [facility] | Bolivar Mcqueen MD | | | 2009 | Encounter | HOSPITAL EMERGENCY | | | | | | CENTER [address] | | | | [address] [place], [place] | | | | | | [address] | | | | | | [phone] | | | +--------+ + + + [...] | | | | | [place] [address] | | | | | | [phone] | | | | | | | | +--------+---------+ + + + documented as of this encounter Visit Diagnoses Not on filedocumented in this encounter"
--- OUTSIDE RECORDS SUMMARY | ~2019-03-12 | XMS | Encounter Summary ---
Demographics + + + | Address | [address] | | | [place] [address] | + + + | Home Phone [...] Providers + +------+ + | Care Warehouse Shipping Receiving Clerk Name | Role | Phone | + +------+ + PCP | Unavailable | + +------+ + Encounter Details +--------+ + + + + | Date | Type | Department | Care Team | Description | +--------+ + + + + | 10/31/ | Hospital | [facility] | Conversion | ESRD (end stage | | 2015 | Encounter | CENTER CV INTRA OP | Transaction, | renal disease) on | | | | [address] | Provider Unknown | dialysis ([facility]) | | | | [place], [place] | [phone] | | | | | [address] | | | | | | [phone] | Colten Hutchins MD | | | | | | [address] | | | | | | [place], [place] | | | | | | [address] | | | | | | | [...] Note by Bev Carroll RN at 10/31/14 782 Author: Bev Carroll RN Service: Interventional Radiology Author Type: Registered Chantell e Filed: 10/31/14 5603 Date of Service: 10/31/141734 Status: Signed Lamps Tester And Inspector: Bev Carroll RN (Registered Nurse) Sutures removed [...] Note by Bev Carroll RN at 10/31/14 0855 Author: Bev Carroll, RN Service: Interventional Radiology Author Type: Registered Chantell rse Filed: 10/31/141649 Date of Service: 10/31/141649 Status: Signed Lamps Tester And Inspector: Bev Carroll RN (Registered Nurse) Attempted removal [...] [address] | | | | | | [place] [address] | | | | | | [phone] | | | | | | | [...] | | yesterday COMPARISON STUDIES: 10/28/2014 PRIMARY WAFER ABRADING MACHINE TENDER: | | | Colten Hutchins MD, PhD, [facility] OPERATIONS: 1. Ultrasound-guided | | | [...] | microsheath were both exchanged for 6 [place] sheaths. A catheter was | | | [...] yesterday | | COMPARISON STUDIES: 10/28/2014 PRIMARY WAFER ABRADING MACHINE TENDER: Colten Hutchins MD, PhD, RPVI | | [...] were both exchanged for 6 | | [place] sheaths. A catheter was advanced over a [...] | | yesterday COMPARISON STUDIES: 10/28/2014 PRIMARY WAFER ABRADING MACHINE TENDER: | | | Colten Hutchins MD, PhD, [facility] OPERATIONS: 1. Ultrasound-guided | | | [...] | microsheath were both exchanged for 6 [place] sheaths. A catheter was | | | [...] yesterday | | COMPARISON STUDIES: 10/28/2014 PRIMARY WAFER ABRADING MACHINE TENDER: Colten Hutchins MD, PhD, RPVI | | [...] were both exchanged for 6 | | [place] sheaths. A catheter was advanced over a [...] | | yesterday COMPARISON STUDIES: 10/28/2014 PRIMARY WAFER ABRADING MACHINE TENDER: | | | Colten Hutchins MD, PhD, [facility] OPERATIONS: 1. Ultrasound-guided | | | [...] | microsheath were both exchanged for 6 [place] sheaths. A catheter was | | | [...] yesterday | | COMPARISON STUDIES: 10/28/2014 PRIMARY WAFER ABRADING MACHINE TENDER: Colten Hutchins MD, PhD, RPVI | | [...] were both exchanged for 6 | | [place] sheaths. A catheter was advanced over a [...] | | yesterday COMPARISON STUDIES: 10/28/2014 PRIMARY WAFER ABRADING MACHINE TENDER: | | | Colten Hutchins MD, PhD, [facility] OPERATIONS: 1. Ultrasound-guided | | | [...] | microsheath were both exchanged for 6 [place] sheaths. A catheter was | | | [...] yesterday | | COMPARISON STUDIES: 10/28/2014 PRIMARY WAFER ABRADING MACHINE TENDER: Colten Hutchins MD, PhD, RPVI | | [...] were both exchanged for 6 | | [place] sheaths. A catheter was advanced over a [...]
--- OUTSIDE RECORDS SUMMARY | ~2019-03-12 | XMS | Encounter Summary ---
Demographics + + + | Address | [address] | | | [place] [address] | + + + | Home Phone [...] | Author | [facility] | | | and [place]ana | + + + | Organization | [facility] [...] Team Providers + +------+ + | Care Shearer Operator Name | Role | Phone | [...] [address] [place] | [place] [address] | | | | | [address] | [phone] | | | | | [address] | | | | | | [phone] | | | +--------+ + + + [...] [address] | | | | | | [place] [address] | | | | | | [phone] | | | | | | | | +--------+---------+ + + + documented as of this encounter Visit Diagnoses Not on filedocumented in this encounter"
--- OUTSIDE RECORDS SUMMARY | ~2019-03-12 | XMS | Encounter Summary ---
Demographics + + + | Address | [address] | | | [place] [address] | + + + | Home Phone [...] + | Author | [facility] | | | and [place]ana | + + + | Organization | [facility] | [...] Team Providers + +------+ + | Care Clubhouse Manager Name | Role | Phone | [...] | | stage renal | [address] | [address] [place] [address] | | | | | disease) | Shun Griffin | [place] | | | | | ([facility]) | [address] | [address] [place] | | | | | Anemia in | [place], [place] | [place], [place] | | | | | ESRD | [address] | [address] Phone: | | | | | (end-stage | Phone: | [phone] | | | | | renal | [phone] | Fax: | | | | | disease) | Fax: | [phone] | | | | | ([facility]) | [phone] | | | | | | Procedures [...] | | [address] | [place], [address] | (Primary Dx) | | | | [place], [place] | [place], [place] | | | | | [address] | [address] | | | | | [phone] | | | +--------+ + + + [...] [address] | | | | | | [place] [address] | | | | | | [phone] | | | | | | | | +--------+---------+ + + + documented as of this encounter Visit Diagnoses + + | Diagnosis | + + | ESRD (end stage renal disease) (HCC) - Primary End stage renal disease | + + documented in this encounter"
--- OUTSIDE RECORDS SUMMARY | ~2019-03-12 | XMS | Encounter Summary ---
Demographics + + + | Address | [address] | | | [place] [address] | + + + | Home Phone [...] | | | | | [place] [address] | | + + + + + | Thania Mallory | ECON | [address] | | | | | [place] [address] | | + + + + + | Deidra Weldon | ECON | [address] | | | | | [place] | | | | | [address] | | + + + + + Care Team Providers + +------+ + | Care Furnace Tapper Name | Role | Phone | + [...] | | [address] | [facility] | | | | | [facility], | [place], [place] | | | | | [place] [address] | [address] | | | | | [phone] | | | +--------+ + + + [...] [place] | | | | | | [address] | | | | | | [phone] | | | | | | | | +--------+ + + + + documented as of this encounter Visit Diagnoses Not on filedocumented in this encounter"
--- OUTSIDE RECORDS SUMMARY | ~2019-03-12 | XMS | Encounter Summary ---
Demographics + + + | Address | [address] | | | [place] [address] | + + + | Home Phone [...] [facility] | | | and [place] | + + + | Organization | [facility] | | [...] Team Providers + +------+ + | Care Canal Lock Tender Chief Operator Name | Role | Phone | + +------+ + PCP | Unavailable | + +------+ + Encounter Details +--------+ + + + + | Date | Type | Department | Care Team | Description | +--------+ + + + + | 08/31/ | Hospital | [facility] | Conversion | ESRD (end stage | | 2016 | Encounter | CENTER CV INTRA OP | Transaction, | renal disease) (HCC) | | | | [address] | Provider Unknown | | | | | [place], [place] | | | | | | [address] | (Fax) | | | | | [phone] | Doyle Diaz MD | | +--------+ [...] E | | | | | | [place] [address] | | | | | | [phone] | | | | | | | [...] | 2. IR ANGIOPLASTY AV FISTULA VENOUS SLAT PICKLER: Doyle Diaz MD | | | CONSENT: [...] | | Over a guidewire, a 4 Djiboutian angled catheter was advanced and | | [...] | ANGIOPLASTY: Over a guidewire, a 6 Djiboutian sheath was advanced | | | and [...] IR ANGIOPLASTY AV | | FISTULA VENOUS SLAT PICKLER: Doyle Diaz MD CONSENT: The risks, benefits [...] micropuncture needle. Over a guidewire, a 4 Djiboutian angled catheter was | | advanced and [...] appears patent. ANGIOPLASTY:Over a guidewire, a 6 Djiboutian sheath was | | advanced and positioned [...] AM | |Over a guidewire, a 6 Djiboutian sheath was advanced and positioned into the [...] | 2. IR ANGIOPLASTY AV FISTULA VENOUS SLAT PICKLER: Doyle Diaz MD | | | CONSENT: [...] | | Over a guidewire, a 4 [place]ib[place]ian angled catheter was advanced and | | [...] | ANGIOPLASTY: Over a guidewire, a 6 [place]ib[place]ian sheath was advanced | | | and [...] IR ANGIOPLASTY AV | | FISTULA VENOUS SLAT PICKLER: Doyle Diaz MD CONSENT: The risks, benefits [...] micropuncture needle. Over a guidewire, a 4 Djiboutian angled catheter was | | advanced and [...] appears patent. ANGIOPLASTY:Over a guidewire, a 6 Djiboutian sheath was | | advanced and positioned [...] AM | |Over a guidewire, a 6 Djiboutian sheath was advanced and positioned into the [...] EXTERNAL | | | | performed at [facility];888 | mmol/L | LAB | | | | Nica Oropeza;[place], [place] | | | | | | [address] | | | | + + + [...]
--- OUTSIDE RECORDS SUMMARY | ~2019-03-12 | XMS | Encounter Summary ---
Demographics + + + | Address | [address] | | | [place] [address] | + + + | Home Phone [...] | | | | | [place] [address] | | + + + + + | Thania Mallory | ECON | [address] | | | | | [place] [address] | | + + + + + | Deidra Weldon | ECON | [address] | | | | | [place] | | | | | [address] | | + + + + + Care Team Providers + +------+ + | Care Commercial Mortgage Broker Name | Role | Phone | [...] Evaluation | | | | Caro Chan [place], | [place], [place] | | | | | [place] [address] | [address] | | | | | [phone] | | | +--------+ + + + [...] Denise | | | | | | [place] | | | | | | [address] | | | | | | [phone] | | | | | | | | +--------+ + + + + documented as of this encounter Visit Diagnoses Not on filedocumented in this encounter"
--- OUTSIDE RECORDS SUMMARY | ~2019-03-12 | XMS | Encounter Summary ---
Demographics + + + | Address | [address] | | | [place] [address] | + + + | Home Phone [...] | Author | [facility] | | | and [place] | + + + | Organization | [facility] | | [...] Providers + +------+ + | Care Integration Developer Name | Role | Phone | [...] | NEPHROLOGY [address] | | | | | [address] | [address] [place] | | | | | [place], [place] | [place] [address] | | | | | [address] | [phone] | | | | | [phone] | | | +--------+ + + + [...] | | | | | [place] [address] | | | | | | [phone] | | | | | | | | +--------+---------+ + + + documented as of this encounter Visit Diagnoses Not on filedocumented in this encounter"
--- OUTSIDE RECORDS SUMMARY | ~2019-03-12 | XMS | Encounter Summary ---
Demographics + + + | Address | [address] | | | [place] [address] | + + + | Home Phone [...] + | Author | [facility] | | | and [place] | + + + | Organization | [facility] | [...] + +------+ + | Care Certified Pharmacy Technician Name | Role | Phone [...] | | | DEPART[address] [place] | [place] [address] | | | | | [place], [place] | [phone] | | | | | [address] | | | | | | [phone] | | | +--------+ + + + [...] | | | | | [place] [address] | | | | | | [phone] | | | | | | | | +--------+---------+ + + + documented as of this encounter Visit Diagnoses Not on filedocumented in this encounter"
--- OUTSIDE RECORDS SUMMARY | ~2019-03-12 | XMS | Encounter Summary ---
Demographics + + + | Address | [address] | | | [place] [address] | + + + | Home Phone [...] | | | | | [place] [address] | | + + + + + | Thania Mallory | ECON | [address] | | | | | [place] [address] | | + + + + + | Deidra Weldon | ECON | [address] | | | | | [place] | | | | | [address] | | + + + + + Care Team Providers + +------+ + | Care Paint Prepper Name | Role | Phone | + [...] | | | | | Caro Chan [place], | [place], [place] | | | | | [place] [address] | [address] | | | | | [phone] | [phone] | | | | | | | [...] Denise | | | | | | [place], [place] | | | | | | [address] | | | | | | [phone] | | | | | | | | +--------+ + + + + documented as of this encounter Visit Diagnoses Not on filedocumented in this encounter"
--- OUTSIDE RECORDS SUMMARY | ~2019-03-12 | XMS | Encounter Summary ---
Demographics + + + | Address | [address] | | | [place] [address] | + + + | Home Phone [...] | Author | [facility] | | | and [place] | + + + | Organization | [facility] [...] Team Providers + +------+ + | Care Bulb Planter Name | Role | Phone | + [...] | stage renal | [address] | [address] [place] [address] | | | | | disease) | Shun Griffin | [place] | | | | | (HCC) | [address] | [address] [place] | | | | | Anemia in | [place], [place] | [place], [place] | | | | | ESRD | [address] | [address] Phone: | | | | | (end-stage | Phone: | [phone] | | | | | renal | [phone] | Fax: | | | | | disease) | Fax: | [phone] | | | | | ([facility]) | [phone] | | | | | | Procedures [...] M, DO [address] | renal disease) ([facility]) | | | | [address] | [place], [address] | (Primary Dx) | | | | [place], [place] | [place], [place] | | | | | [address] | [address] | | | | | [phone] | | | +--------+ + + + [...] Fina charge nurse, Elisabeth Quijano RN, and [facility] medical student Yefri Bean MS III, about lifestyle modification, compliance, and her potential risk for increased her vascular morbidity, mortality. 2. 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 I discussed this wi th the renal NIGHT MANAGER. 3. Monthly lab was reviewed with the patient. 4. Long-term prognosis remains poor, due to her poor to no insight into her chronic health conditions, or health maintenance. : [place] Fina Alonso MD, PhD documented in thi [...] | | | | | [place] [address] | | | | | | [phone] | | | | | | | | +--------+---------+ + + + documented as of this encounter Visit Diagnoses + + | Diagnosis | + + | ESRD (end stage renal disease) (HCC) - Primary End stage renal disease | + + documented in this encounter"
--- OUTSIDE RECORDS SUMMARY | ~2019-03-12 | XMS | Encounter Summary ---
Demographics + + + | Address | [address] | | | [place] [address] | + + + | Home Phone [...] | Author | [facility] | | | and [place] | + + + | Organization | [facility] | | | [...] Providers + +------+ + | Care Manager Utility Name | Role | Phone | [...] | | stage renal | [address] | [address] [place] [address] | | | | | disease) | Shun Griffin | [place] | | | | | ([facility]) | [address] | [address] [place] | | | | | Anemia in | [place], [place] | [place] | | | | | ESRD | [address] | [address] Phone: | | | | | (end-stage | Phone: | [phone] | | | | | renal | [phone] | Fax: | | | | | disease) | Fax: | [phone] | | | | | ([facility]) | [phone] | | | | | | Procedures | | | | | | | [place] OFFICE | | | | | | [...] [address] | renal disease) ([facility]) | | | | [address] | [place], [address] | (Primary Dx); | | | | [place], [place] | [place], [place] | Secondary | | | | [address] | [address] | hyperparathyroidism | | | | [phone] | | ([facility]) | +--------+ + + + + [...] [address] | | | | | | [place] [address] | | | | | | [phone] | | | | | | | [...]
--- OUTSIDE RECORDS SUMMARY | ~2019-03-12 | XMS | Encounter Summary ---
Demographics + + + | Address | [address] | | | [place] [address] | + + + | Home Phone [...] | Author | [facility] | | | and [place] | + + + | Organization | [facility] [...] Team Providers + +------+ + | Care Molding Machine Tender Name | Role | Phone [...] | | stage renal | [address] | [address] [place] [address] | | | | | disease) | Shun Griffin | [place] | | | | | ([facility]) | [address] | [address] [place] | | | | | Anemia in | [place], [place] | [place] | | | | | ESRD | [address] | [address] Phone: | | | | | (end-stage | Phone: | [phone] | | | | | renal | [phone] | Fax: | | | | | disease) | Fax: | [phone] | | | | | ([facility]) | [phone] | | | | | | Procedures [...] | | [address] | [place], [address] | (Primary Dx) | | | | [place], [place] | [place], [place] | | | | | [address] | [address] | | | | | [phone] | | | +--------+ + + + [...] have offered her arrangements via the Renal MANAGER FORMS to obtain some meaningful counseling, but she [...] Will recheck her in 2 weeks. : [place] Fina Joy M.D., Pediatric Nephrology, [facility] documented in t his encounter Plan [...] [address] | | | | | | [place] [address] | | | | | | [phone] | | | | | | | | +--------+---------+ + + + documented as of this encounter Visit Diagnoses + + | Diagnosis | + + | ESRD (end stage renal disease) (HCC) - Primary End stage renal disease | + + documented in this encounter"
--- OUTSIDE RECORDS SUMMARY | ~2019-03-12 | XMS | Encounter Summary ---
Demographics + + + | Address | [address] | | | [place] [address] | + + + | Home Phone [...] [facility] | | | and [place] | + + + | Organization | Located [facility] | [...] Team Providers + +------+ + | Care Straddle Buggy Operator Name | Role | Phone [...] NEPHROLOGY [address] | M, DO [address] | | | | | [address] | [place], [address] | | | | | [place], [place] | [place], [place] | | | | | [address] | [address] | | | | | [phone] | | | +--------+---------+ + + + [...] [address] | | | | | | [place] [address] | | | | | | [phone] | | | | | | | | +--------+---------+ + + + documented as of this encounter Visit Diagnoses + + | Diagnosis | + + | ESRD (end stage renal disease) (HCC) - Primary End stage renal disease | + + documented in this encounter"
--- OUTSIDE RECORDS SUMMARY | ~2019-03-12 | XMS | Encounter Summary ---
Demographics + + + | Address | [address] | | | [place] [address] | + + + | Home Phone [...] | | | | | [place] [address] | | + + + + + | Thania Mallory | ECON | [address] | | | | | [place] [address] | | + + + + + | Deidra Weldon | ECON | [address] | | | | | [place] | | | | | [address] | | + + + + + Care Team Providers + +------+ + | Care Painter Shipyard Name | Role | Phone | + [...] | | | | | [address] [place], | | | | | | [place] [address] | | | +--------+ + + + [...] Denise | | | | | | [place], [place] | | | | | | [address] | | | | | | [phone] | | | | | | | [...] [facility] - | [address] | [place] [address] | | | IMMUNOGENETICS/TRANS | [address] [...] [facility] - | [address], | [place] [address] | | | IMMUNOGENETICS/TRANS | [address] [...] [facility] - | [address] | [place] [address] | | | IMMUNOGENETICS/TRANS | [address] | | | | [facility] | | | | + + + + + documented in this encounter Visit Diagnoses + + | Diagnosis | + + | End stage renal disease (HCC) End stage renal disease | + + documented in this encounter"
--- OUTSIDE RECORDS SUMMARY | ~2019-03-12 | XMS | Encounter Summary ---
Demographics + + + | Address | [address] | | | [place] [address] | + + + | Home Phone [...] | | | | | [place] [address] | | + + + + + | Thania Mallory | ECON | [address] | | | | | [place] [address] | | + + + + + | Deidra Weldon | ECON | [address] | | | | | [place] | | | | | [address] | | + + + + + Care Team Providers + +------+ + | Care Lamp Stack Developer Name | Role | Phone | [...] Elias | [facility] | | | | | [address] [place], | [place], [place] | | | | | [place] [address] | [address] | | | | | [phone] | | | +--------+ + + + [...] Denise | | | | | | [place] | | | | | | [address] | | | | | | [phone] | | | | | | | | +--------+ + + + + documented as of this encounter Visit Diagnoses Not on filedocumented in this encounter"
--- OUTSIDE RECORDS SUMMARY | ~2019-03-12 | XMS | Clinical Summary ---
Demographics + + + | Address | [address] | | | [place] [address] | + + + | Home Phone [...] Author | [facility] | | | and [place] | + + + | Organization | [facility] [...] Providers + +------+ + | Care Forestry Foreman Name | Role | Phone | [...] | | Treated by Dr. Joy, pediatric np. | + + + +---+ | ESRD [...] | Usha Del Castillo MD | dialysis ([facility]); | | 2018 | | | | Chronic pleural | | | | | | effusion; | | | | | | Noncompliance with | | | | | | renal dialysis | | | | | | ([facility]); Acute | | | | | | respiratory | | | | | | distress; Anemia in | | | | | | ESRD (end-stage | | | | | | renal disease) | | | | | | ([facility]); At high risk | | | | | | for electrolyte | | | | | | imbalance; ESRD on | | | | | | hemodialysis ([facility]); | | | | [...] | | 2019 | | | D, Legal Administrative Assistant | | +--------+ + + + + | 01/07/ | Hospital | Internal Medicine | Florian Nelson, | Hyperkalemia | | 2019 - | Encounter | | Megan Fields DO | (Primary Dx); ESRD | | | | | Nicholas Sutton MD | needing dialysis | | 01/10/ | | | Piedad Mosquera, | ([facility]); Acute | | 2018 | | | MD Kline, | respiratory | | | | | DO Paty | distress; Recurrent | | | | | | right pleural | | | | | | effusion; Anemia in | | | | | | ESRD (end-stage | | | | | | renal disease) | | | | | | ([facility]); At high risk | | | | | | for electrolyte | | | | | | imbalance; 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 | | | | | | failure ([facility]); | | | | | | 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 | | | | | | ([facility]); ESRD on | | | | | | hemodialysis ([facility]); | | | | [...] present | | | | | | ([facility]) (Primary Dx); | | | | | | Pneumonia of right | | | | | | lower lobe due to | | | | | | infectious organism | | | | | | ([facility]); Hypoxia; | | | | | | Hypervolemia, | | | | | | unspecified | | | | | | hypervolemia type; | | | | | | ESRD on dialysis | | | | | | ([facility]); Hyperkalemia; | | | | | | Acute on chronic | | | | | | respiratory failure | | | | | | with hypoxia and | | | | | | hypercapnia ([facility]); | | | | | | Acute respiratory | | | | | | failure with hypoxia | | | | | | ([facility]); Anemia in | | | | | | ESRD (end-stage | | | | | | renal disease) | | | | | | ([facility]); At high risk | | | | | | for electrolyte | | | | | | imbalance; Awaiting | | | | | | organ transplant | | | | | | status; 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 | | | | | | failure ([facility]); | | | | | | Chronic right-sided | | | | | | heart failure ([facility]); | | | | | | 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 | | | | | | ([facility]); ESRD on | | | | | | hemodialysis ([facility]); | | | | [...] | | | | | | function ([facility]); | | | | | | Moderate to severe | | | | | | pulmonary | | | | | | hypertension ([facility]); | | | | | | Low grade fever; | | | | | | Noncompliance of | | | | | | patient with renal | | | | | | dialysis ([facility]); | | | | [...] | | | | | [place] [address] | | | | | | [phone] | | | | | | | [...] Left: | SYNOVIS - | | | [id number] | | 0.8x8cm - [id number]: | | Arm | SYNO | | [...] | | COVIDIEN - | | | [id number] | | | | | COVI | | | [id number] / | | | | | | | | | | | | | | | | /[id number] | | | | | | | [...] R?MRN: | | | | | | [id number] | | | [id number] | | | riteri | | | [...] | | | St. | | | Pony | | | y | | | [...] | | | St. | | | Pony | | | y | | | [...] | | | St. | | | [place]ony | | | y | | | [...] | | | St | | | Pony | | | y | | | [...] St | | | | | | [place]ony | | | y | | | [...] | | | St. | | | [place]ony | | | y | | | [...] | | | St. | | | Pony | | | y H. | | [...] | | | St. | | | Pony | | | y H. | | [...] | | | St. | | | Pony | | | y H. | | [...] | | | St. | | | Pony | | | y H. | | [...] | | | St. | | | Pony | | | y H. | | [...] | | | St. | | | Pony | | | y H. | | [...] | | | MD | | | [place]cre[place] Measurer | | | al | | | [...] | | | [id number] | | | [id number] | | | eb | | | [...] R?MRN: | | | | | | [id number] | | | [id number] | | | riteri | | | [...] | | | St. | | | [place]ony | | | y | | | [...] | | | St. | | | Pony | | | y | | | [...] | | | St. | | | Pony | | | y | | | [...] | | | St | | | Pony | | | y | | | [...] St | | | | | | Pony | | | y | | | [...] | | | St. | | | Pony | | | y | | | [...] | | | St. | | | Pony | | | y H. | | [...] | | | St. | | | Pony | | | y H. | | [...] | | | St. | | | Pony | | | y H. | | [...] | | | St. | | | Pony | | | y H. | | [...] | | | St. | | | Pony | | | y H. | | [...] | | | St. | | | Pony | | | y H. | | [...] | | | St. | | | Pony | | | y H. | | [...] | | | MD | | | [place] Measurer | | | al | | | [...] | | | [id number] | | | [id number] | | | 2b | | | [...] [facility] | | | | performed at [facility], [address] | | LABORATORY | | | | [address], | | | | | | [place] [address] | | | | + + + + + + + + | Specimen | + + | | + + + + + + + | Performing | Address | City/State/Zipcode | Phone Number | | Organization | | | | + + + + + | [facility] | [address] | [place] [address] | [phone] | + + + + + Magnesium [...] Testing | 1.7 - 2.4 mg/dL | [facility] | | | | performed at [facility], [address] | | LABORATORY | | | | [address], | | | | | | [place] [address] | | | | + + + + + + + + | Specimen | + + | | + + + + + + + | Performing | Address | City/State/Zipcode | Phone Number | | Organization | | | | + + + + + | [facility] | [address] | [place] [address] | [phone] | + + + + + Renal [...] | | | | performed at [facility], [address] | | | | | | [address], | | | | | | [place] [address] | | | | + + + + + + + + | Specimen | + + | Blood | + + + + + + + | Performing | Address | City/State/Zipcode | Phone Number | | Organization | | | | + + + + + | [facility] | [address] | [place] [address] | [phone] | + + + + + HEMODIALYSIS [...] | | | | | [place] [address] | | | | + + + + + + + + | Specimen | + + | Blood | + + + + + + + | Performing | Address | City/State/Zipcode | Phone Number | | Organization | | | | + + + + + | [facility] | [address] | [place] [address] | [phone] | + + + + + Troponin [...] (H)Comment: 0.04 | 0.00 - 0.04 | [facility] | | | | ng/mL [...] at | | | | | | [facility];[address] | | | | | | [facility];[place] [address] | | | | + + + + + + + + | Specimen | + + | Blood | + + + + + + + | Performing | Address | City/State/Zipcode | Phone Number | | Organization | | | | + + + + + | [facility] | [address] | [place] [address] | [phone] | + + + + + CBC [...] | | | | | | at [facility], [address] | | | | | | [employer], | | | | | | [place] [address] | | | | | |Testing performed at [facility], [address] [facility] [place] [address] | | | | | | | | | | + + +---- + + + + + | Specimen | + + | Blood | + + + + + + + | Performing | Address | City/State/Zipcode | Phone Number | | Organization | | | | + + + + + | [facility] | [address] | [place] [address] | [phone] | + + + + + Phosphorus [...] Testing | 2.3 - 4.8 mg/dL | [facility] | | | | performed at [facility], [address] | | LABORATORY | | | | [address], | | | | | | [place] [address] | | | | + + + + + + + + | Specimen | + + | Blood | + + + + + + + | Performing | Address | City/State/Zipcode | Phone Number | | Organization | | | | + + + + + | [facility] | [address] | [place] [address] | [phone] | + + + + + Ferritin (01/24/2019 5:53 AM PST) + + + + + + | Component | Value | Ref Range | Performed | Pathologist | | | | | At | Signature | + + + + + + | Ferritin | 805 (H)Comment: Testing | 6 - 170 ng/mL | [facility] | | | | performed at [facility], [address] | | LABORATORY | | | | [address], | | | | | | [place] [address] | | | | + + + + + + + + | Specimen | + + | Blood | + + + + + + + | Performing | Address | City/State/Zipcode | Phone Number | | Organization | | | | + + + + + | [facility] | [address] | [place] [address] | [phone] | + + + + + Creatine [...] Court, | | | | | | [place] [address] | | | | + + + + + + | CK-MB | 0Comment: Testing | 0 - 3 % | [facility] | | | | performed by [facility], | | LABORATORY | | | | [address], | | | | | | [facility] [address] | | | | + + + + + + | CK-BB | 0Comment: Testing | 0 % | [facility] | | | | performed by [facility], | | LABORATORY | | | | [address], | | | | | | [place] [address] | | | | + + + + + + | CK, Total | 156Comment: Testing | 24 - 173 U/L | [facility] | | | | performed at [facility], | | LABORATORY | | | | [address], [address], | | | | | | [place] [address] | | | | + + + [...] | | | | | [place] [address] | | | | + + + + + + + + | Specimen | + + | Blood | + + + + + + + | Performing | Address | City/State/Zipcode | Phone Number | | Organization | | | | + + + + + | [facility] | [address] | [place] [address] | [phone] | + + + + + Basic [...] 4 (L)Comment: GFR <60: | >60 | [facility] | | | GFR | [...] | | | | | | MDRD [facility] traceable | | | | | | equation.Testing | | | | | | performed at [facility], [address] | | | | | | [facility], | | | | | | [place] [address] | | | | + + + + + + + + | Specimen | + + | Blood | + + + + + + + | Performing | Address | City/State/Zipcode | Phone Number | | Organization | | | | + + + + + | [facility] | [address] | [place] [address] | [phone] | + + + + + XR Chest AP Portable (01/24/2019 1:35 AM [facility])Only the most recent of 4 results within [...] CHEST AP PORTABLE (01/07/2019); CHEST TWO VIEWS 39785 (01/06/2019); | | | FINDINGS: Mild cardiomegaly. [...] PORTABLE (01/07/2019); CHEST | | TWO VIEWS 55662 (01/06/2019); | | | | FINDINGS: | [...] [address] | | | | | | [place] [address] | | | | + + + + + + + + | Specimen | + + | Blood | + + + + + + + | Performing | Address | City/State/Zipcode | Phone Number | | Organization | | | | + + + + + | [facility] | [address] | [place] [address] | [phone] | + + + + + Comprehensive [...] [facility] [place];[address] | | | | | | [facility];[place], [place] | | | | | | [address] | | | | + + + + + + + + | Specimen | + + | Blood | + + + + + + + | Performing | Address | City/State/Zipcode | Phone Number | | Organization | | | | + + + + + | [facility] | [address] | [place] [address] | [phone] | + + + + + XR [...] (01/07/2019); CHEST TWO | | | VIEWS 07438 (01/06/2019); XR CHEST AP PORTABLE (12/13/2018); | [...] CHEST AP PORTABLE (01/07/2019); CHEST TWO VIEWS 76411 (01/06/2019); XR | | CHEST AP PORTABLE [...] | | | | | ONLY, -COMPUTER (243), | | | | | | acquisition editor Daniela Luciano | | | | [...] correct | | | patient, procedure, equipment, residential support specialist and site/side marked as | [...] space: 6th Puncture method: | | | zttd-xrg-fnhoaq catheter Number of attempts: 1 Drainage amount: [...] Testing | 65 - 99 mg/dL | [facility] | | | POC | performed at [facility];[address] | | LABORATORY | | | | [address];[place] | | | | | | [address] | | | | + + + + + + + + | Specimen | + + | | + + + + + + + | Performing | Address | City/State/Zipcode | Phone Number | | Organization | | | | + + + + + | [facility] | [address] | [place] [address] | [phone] | + + + + + XR [...] | | PORTABLE (01/07/2019); CHEST TWO VIEWS 56390 (01/06/2019); XR CHEST AP | | | [...] PORTABLE (01/07/2019); | | CHEST TWO VIEWS 87794 (01/06/2019); XR CHEST AP PORTABLE (12/13/2018); | [...] adenopathy. Upper Abdomen: The | | | [place] kidneys are atrophic. There is a small [...] No adenopathy. | | Upper Abdomen: The [place] kidneys are atrophic. There is a small [...] | | | | [facility], [address] [facility] | | | | | | [place] | | | | | | [address] | | | | + + + + + + + + | Specimen | + + | Blood | + + + + + + + | Performing | Address | City/State/Zipcode | Phone Number | | Organization | | | | + + + + + | [facility] | [address] | [place] [address] | [phone] | + + + + + Thoracentesis [...] space: 6th Puncture method: | | | wkav-ebj-gclwhz catheter Needle size: 18 Catheter size: 18 [...] + | Billie Gupta MD 12/14/2018 9:54 [facility] | | | [facility] Hemo-Dialysis Procedure note Pt is seen on [...] 450 AP | | | -200 Director Telehealth 170 Constitutional: pt appears without distress. on [...] | | | | Signed by: Eliza Echlos Julie | | Sign Date/Time: 12/12/2018 5:27 [...] | [facility] | | | Requests | [facility];[address] | | LABORATORY | | | | [address];[place] [address] | | | | + + + + + + | RESULT | NO GROWTH 6 DAYS | | [facility] | | | | | | LABORATORY | | + + + + + + | RESULT | Testing performed at | | [facility] | | | | [facility], [address] [facility] | | LABORATORY | | | | [address], [place], [place] | | | | | | [address]Kfksfuv: Testing | | | | | | performed at [facility], [address] | | | | | [address], [place], [place] | | | | | | [address] | | | | + + + + + + + + | Specimen | + + | Blood - Peripheral | | blood specimen | | (specimen) | + + + + + + + | Performing | Address | City/State/Zipcode | Phone Number | | Organization | | | | + + + + + | [facility] | [address] | [place] [address] | [phone] | + + + + + C-Reactive Protein (12/12/2018 5:02 AM PDT) + + + + + + | Component | Value | Ref Range | Performed | Pathologist | | | | | At | Signature | + + + + + + | CRP | 8.6 (H)Comment: Testing | <0.5 mg/dL | [facility] | | | | performed at [facility], [address] | | LABORATORY | | | | [address], | | | | | | [place] [address] | | | | + + + + + + + + | Specimen | + + | Blood | + + + + + + + | Performing | Address | City/State/Zipcode | Phone Number | | Organization | | | | + + + + + | [facility] | [address] | [place] [address] | [phone] | + + + + + Influenza [...] B | NEGATIVEComment: Testing | NEG | [facility] | | | | performed by Molecular | | LABORATORY | | | | MethodologyTesting | | | | | | performed at [facility];[address] | | | | | | [address];[place], [place] | | | | | | [address] | | | | + + + + + + + + | Specimen | + + | | + + + + + + + | Performing | Address | City/State/Zipcode | Phone Number | | Organization | | | | + + + + + | [facility] | [address] | [place] [address] | [phone] | + + + + + FLU SWAB COLLECTION (12/11/2018 3:46 PM PDT) + + + + + + | Component | Value | Ref Range | Performed | Pathologist | | | | | At | Signature | + + + + + + | Collection | SPECIMEN RECEIVED IN | | [facility] | | | | LABComment: Testing | | LABORATORY | | | | performed at [facility] | | | | | | [address];[place], [place] | | | | | | [address] | | | | + + + + + + + + | Specimen | + + | Tissue - Entire | | nasopharynx (body | | structure) | + + + + + + + | Performing | Address | City/State/Zipcode | Phone Number | | Organization | | | | + + + + + | [facility] | [address] | [place] [address] | [phone] | + + + + + PTT (12/11/2018 8:06 AM PDT) + + + + + + | Component | Value | Ref Range | Performed | Pathologist | | | | | At | Signature | + + + + + + | PTT | 32Comment: Testing | 23 - 32 seconds | [facility] | | | | performed at [facility];[address] | | LABORATORY | | | | [address];[place] | | | | | | [address] | | | | + + + + + + + + | Specimen | + + | Blood | + + + + + + + | Performing | Address | City/State/Zipcode | Phone Number | | Organization | | | | + + + + + | [facility] | [address] | [place] [address] | [phone] | + + + + + CT [...] LABORATORY | | | | performed at [facility];[address] | | | | | | [address];[place] | | | | | | [address] | | | | + + + + + + + + | Specimen | + + | | + + + + + + + | Performing | Address | City/State/Zipcode | Phone Number | | Organization | | | | + + + + + | [facility] | [address] | [place] [address] | [phone] | + + + + + Lactic [...] | | | Serum | performed at [facility];[address] | mmol/L | LABORATORY | | | | [address];[place], [place] | | | | | | [address] | | | | + + + + + + + + | Specimen | + + | Blood | + + + + + + + | Performing | Address | City/State/Zipcode | Phone Number | | Organization | | | | + + + + + | [facility] | [address] | [place] [address] | [phone] | + + + + + Protime INR (12/10/2018 11:02 PM PDT) + + + + + + | Component | Value | Ref Range | Performed | Pathologist | | | | | At | Signature | + + + + + + | INR | 1.3Comment: REFERENCE | | [facility] | | | | RANGE:0.9 [...] [facility] [place];[address] | | | | | | [address];[place] | | | | | | [address] | | | | + + + + + + + + | Specimen | + + | Blood | + + + + + + + | Performing | Address | City/State/Zipcode | Phone Number | | Organization | | | | + + + + + | [facility] | [address] | [place] [address] | [phone] | + + + + + from [...] +--------+ +---------+--------+ | MEDICARE | MEDICA | [id number] | 05/05/19 | [phone] | | Medica | | | RE | | 13-Pre | 5 | | re | | | PART A | | sent | | | | | | AND B | | | | | | + +--------+ +--------+ +---------+--------+ | MEDICARE | MEDICA | [id number] | 05/05/19 | [phone] | | Medica | | | RE | | 13-Pre | 5 | | re | | | PART A | | sent | | | | | | AND B | | | | | | + +--------+ +--------+ +---------+--------+ | [employer]AN | MODA | [id number] | | [phone] | | Medica | | MEDICAID HMO | HEALTH | | 019-Pr | 1 | | id | | | MDCD | | esent | | | | | | [place]MO [place] | | | | | | + +--------+ +--------+ +---------+--------+ | [employer] | MODA | [id number] | | [phone] | | Medica | | MEDICAID HMO [...] | | [place] | | | 2 ([place]) | [address] | + +--------+ +--------+ + + | Dara Weldon | Person | Self [birth year] | [address] | | | al/Fam | | 1994 | [phone] | [address] [place], [place] | | | [place] | | | 2 ([place]) | [address] | + +--------+ +--------+ + + | Cory Weldon | Person | Father [birth year] | [address] | | | al/Fam | | 1970 | [phone] | [place] [address] | | | [place] | | | 9 ([place]) | | + +--------+ +--------+ + + Advance Directives + + + + + | Type | Date Recorded | Patient | Explanation | | | | 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
--- OUTSIDE RECORDS SUMMARY | ~2019-03-12 | XMS | Encounter Summary ---
Demographics + + + | Address | [address] | | | [place] [address] | + + + | Home Phone [...] | | | | | [place] [address] | | + + + + + | Thania Mallory | ECON | [address] | | | | | [place] [address] | | + + + + + | Deidra Weldon | ECON | [address] | | | | | [place] | | | | | [address] | | + + + + + [...] Evaluation | | | | Caro [address] [place], | [place], [place] | | | | | [place] [address] | [address] | | | | | [phone] | | | +--------+ + + + [...] Denise | | | | | | [place] | | | | | | [address] | | | | | | [phone] | | | | | | | | +--------+ + + + + documented as of this encounter Visit Diagnoses Not on filedocumented in this encounter"
--- OUTSIDE RECORDS SUMMARY | ~2019-03-12 | XMS | Encounter Summary ---
Demographics + + + | Address | [address] | | | [place] [address] | + + + | Home Phone [...] | | | | | [place] [address] | | + + + + + | Thania Mallory | ECON | [address] | | | | | [place] [address] | | + + + + + | Deidra Weldon | ECON | [address] | | | | | [place] | | | | | [address] | | + + + + + Care Team Providers + +------+ + | Care Sidewalk Inspector Name | Role | Phone | [...] pt's | | | | Caro [place], | [place], [place] | support plan & | | | | [place] [address] | [address] | social changes) | | | | [phone] | | | +--------+ + + + [...] Denise | | | | | | [place], [place] | | | | | | [address] | | | | | | [phone] | | | | | | | | +--------+ + + + + documented as of this encounter Visit Diagnoses Not on filedocumented in this encounter"
--- OUTSIDE RECORDS SUMMARY | ~2019-03-12 | XMS | Encounter Summary ---
Demographics + + + | Address | [address] | | | [place] [address] | + + + | Home Phone [...] | | | | | [place] [address] | | + + + + + | Thania Mallory | ECON | [address] | | | | | [place] [address] | | + + + + + | Deidra Weldon | ECON | [address] | | | | | [place] | | | | | [address] | | + + + + + Care Team Providers + +------+ + | Care Solar Installer Technician Name | Role | Phone | [...] | | | | | Caro [place], | | | | | | [place] [address] | | | +--------+ + + + [...] Denise | | | | | | [place], [place] | | | | | | [address] | | | | | | [phone] | | | | | | | [...] [facility] - | [address], | [place] [address] | | | IMMUNOGENETICS/TRANS | [address] | | | | [facility] | | | | + + + + + documented in this encounter Visit Diagnoses Not on filedocumented in this encounter"
--- OUTSIDE RECORDS SUMMARY | ~2019-03-12 | XMS | Encounter Summary ---
Demographics + + + | Address | [address] | | | [place] [address] | + + + | Home Phone [...] + | Author | [facility] | | | and [place] | + + + | Organization | [facility] | | | and Josephana | [...] Providers + +------+ + | Care Motorcycle Mechanic Name | Role | Phone | [...] NEPHROLOGY [address] | M, DO [address] | | | | | [address] | [place] | | | | | [place], [place] | [place], [place] | | | | | [id number] | [id number] | | | | | [phone] | | | +--------+ + + + [...] through the Nephrology Se ction at either [facility] or [facility]? 6. Anemia--will continue the EPO at current dose and recheck the Fe stores next quarter. Plan: 1. Her PTH appears stable on a minimal dose of Hectorol. 2. Will continue to monitor her BP closely. 3. She appears very cooperative and collegial here in clinic. CC: [place] [facility] documented in thi s encounter Plan [...] [address] | | | | | | [place] [address] | | | | | | [phone] | | | | | | | | +--------+---------+ + + + documented as of this encounter Visit Diagnoses Not on filedocumented in this encounter"
--- OUTSIDE RECORDS SUMMARY | ~2019-03-12 | XMS | Encounter Summary ---
Demographics + + + | Address | [address] | | | [place] [address] | + + + | Home Phone [...] + | Author | [facility] | | | and Josephana | + + + | Organization | [facility] [...] Team Providers + +------+ + | Care Mobility Developer Name | Role | Phone | + +------+ + | Jonathan Alonso MD | PCP | | + +------+ + Encounter Details +--------+ + + + + | Date | Type | Department | Care Team | Description | +--------+ + + + + | 10/08/ | Orders Only | [facility] | Provider, | Systolic congestive | | 2019 | | SYSTEM GENERIC OP | MD [address] | heart failure (HCC) | | | | CONVERSION [address] | [place] [address]. | | | | | [address] [place], [place] | [place] [address] | | | | | [address] | | | | | | [phone] | | | +--------+ + + + [...] [address] | | | | | | [place] [address] | | | | | | [phone] | | | | | | | [...]
--- OUTSIDE RECORDS SUMMARY | ~2019-03-12 | XMS | Encounter Summary ---
Demographics + + + | Address | [address] | | | [place] [address] | + + + | Home Phone [...] | | | | | [place] [address] | | + + + + + | Thania Mallory | ECON | [address] | | | | | [place] [address] | | + + + + + | Deidra Weldon | ECON | [address] | | | | | [place] | | | | | [address] | | + + + + + Care Team Providers + +------+ + | Care Dike Supervisor Name | Role | Phone | [...] | | | | [address] [place] | [facility] | | | | | [facility], | [place], [place] | | | | | [place] [address] | [address] | | | | | [phone] | | | +--------+ + + + [...] [place] | | | | | | [address] | | | | | | [phone] | | | | | | | | +--------+ + + + + documented as of this encounter Visit Diagnoses Not on filedocumented in this encounter"
--- OUTSIDE RECORDS SUMMARY | ~2019-03-12 | XMS | Encounter Summary ---
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
--- OUTSIDE RECORDS SUMMARY | ~2019-03-12 | XMS | Encounter Summary ---
Demographics + + + | Address | [address] | | | [place] [address] | + + + | Home Phone [...] | Author | [facility] | | | and Josephana | + + + | Organization | [facility] [...] Team Providers + +------+ + | Care Conditioning Coach Name | Role | Phone | [...] | | | | 21) End | [place], [place] | [place], [place] | | | | | stage renal | [address] | [address] Phone: | | | | | disease | Phone: | [phone] | | | | | ([facility]) | [phone] | Fax: | | | | | Infection | Fax: | [phone] | | | | | and | [phone] | | | | | | inflammatory [...] | | [address] | [place], [address] | (Primary Dx); | | | | [place], [place] | [place], [place] | Anemia in ESRD | | | | [address] | [address] | (end-stage renal | | | | [phone] | | disease) ([facility]) | +--------+ + + + [...] that she is working very closely with [facility] for an LRD allograft from her [...] excellent candidate from her visits here at [facility]. 6. Anemia--Will need to hold the EPO until the Hb is < 11.0 g/dl, while rechecking the Hb weekly. Plan: 1. Will continue to follow her PTH quarterly without Hectorol Rx. 2. Hold the EPO as above, until the Hb is < 11.0 g/dl. 3. Will try to connect with her Transplant Service Desk Associate at [facility], about re lative timeline of her allograft date. 4. She will follow with Dr. Ibarra in 2 weeks. CC: Hermleigh Fina Joy MD, [facility] [...] [place] | | | | | | [place] [address] | | | | | | [phone] | | | | | | | [...]
--- OUTSIDE RECORDS SUMMARY | ~2019-03-12 | XMS | Encounter Summary ---
Demographics + + + | Address | [address] | | | [place] [address] | + + + | Home Phone [...] + | Author | [facility] | | | and Josephana | + + + | Organization | [facility] [...] Team Providers + +------+ + | Care Dock Superintendent Name | Role | Phone | [...] + + | 01/23/ | Hospital [facility] | Vivek Teran, | SOB (shortness of | | 2019 - | Encounter | [facility] | MD Brooks [address] | breath) (Primary | | | | CARE FLOOR [address] | [place] [address] | Dx); ESRD needing | | 01/26/ | | [address] | [phone] | dialysis ([facility]); | | 2019 | | [place], [place] | | Chronic pleural | | | | [address] | Omar Hatch MD [address] | effusion; | | | | [phone] | [address] | Noncompliance with | | | | | [place] [address] | renal dialysis | | | | | [phone] | ([facility]); Acute | | | | | | respiratory | | | | | Sotero Reinoso MD | distress; Anemia in | | | | | [address] | ESRD (end-stage | | | | | [place], [place] | renal disease) | | | | | [address] | ([facility]); At high risk | | | | | | for electrolyte | | | | | Usha Martínez MD | imbalance; ESRD on | | | | | [address] | hemodialysis ([facility]); | | | | | [place] [address] | Hyperphosphatemia; | | | | | [phone] | Noncompliance; | | | | | [...] pierre coleman. [facility] Service: Hospitalist Discharge Summary Date [...] CHEST AP PORTABLE (01/07/2019); CHEST TWO VIEWS 78249 (01/06/2019); XR CHEST AP PORTABLE (12/13/2018); FINDINGS: [...] CHEST AP PORTABLE (01/07/2019); CHEST TWO VIEWS 09625 (01/06/2019); FINDINGS: Mild cardiomegaly. No pneumothorax. Interstitial [...] Confirmed by MUSE READ ONLY, -COMPUTER ([id number]), video editor Daniela Luciano ([id number]) on 01/24/2019 5:16: [...] bacteria 12/12/2018 Clotted dialysis access ([facility]) 2014 Congestive heart failure (HCC) ESRD (end stage renal disease) (HCC) HSP (Henoch-Schonlein purpura) nephritis ([facility]) 1987 Hypertension Pericardial effusion without cardiac tamponade 11/07/2018 Past Surgical History: Procedure Laterality Date ABDOMEN SURGERY AV FISTULA REPAIR 02/24/2014 LEFT Radical Cephalic Fistula Creation; Laterality: Left; Surgeon: Blake Chavarria MD ; Location: [facility] MAIN OR AV FISTULA REPAIR Left 03/07/2014 Procedure: AV FISTULA - GRAFT REPAIR/REVISION; Surgeon: Rik Simon MD; Location: [facility] OR; Service: Vascular; Laterality: Left; biopsy of kidney age 10 DIALYSIS FISTULA CREATION 04/08/2014 Procedure: DIALYSIS CATHETER - INSERTION; Surgeon: Rik Simon MD; Location: [facility] ; Service: Vascular; Laterality: N/A; tunneled catheter.br hemodialysis catheter KIDNEY BIOPSY Left 2003 OTHER SURGICAL HISTORY LAPAROSCOPIC PERITONEAL DIALYSIS CATHETER INSERTION - x2 OTHER SURGICAL HISTORY Right 07/2013 LAPAROSCOPIC PERITONEAL DIALYSIS CATHETER INSERTION - current dialysis access MWF dialysis OTHER SURGICAL HISTORY Left 06/24/2014 SUPERFICIALIZATION OF AV FISTULA - Procedure: AV FISTULA - SUPERFICIALIZATION; Surgeon: Emanuel Simon MD; Location: [facility] OR; Service: Vascular; Laterality: Left; OTHER SURGICAL HISTORY Left 04/08/2014 AV FISTULA PLACEMENT - Procedure: AV FISTULA; Surgeon: Rik Simon MD; Location: [facility]; Service: Vascular; Laterality: Left; cephalic OTHER SURGICAL HISTORY Left 03/07/2014 DECLOT GRAFT - Procedure: GRAFT - DECLOT; Surgeon: Rik Simon MD; Location: [facility] OR ; Service: Vascular; Laterality: Left; peritoneal [...] file. Follow up: Jonathan C Gavin, MD [address] [place] [address] Schedule an appointment as soon as possible [...] | | | renal disease) ([facility]) | protocol | | | | [...] time of discharge. Daniela Helms RN René Gracia MD - 01/26/2019 9:23 AM PST Hospital [...] Chronic pleural effusion [J90] Recommendations: No acute STUDENT LIFE COORDINATOR indication Management of the right pleural effusion [...] Kika Olivarez, RN at 01/24/2019 6:11 PM Veean Mckoy RN - 6:26 AM PSTPt has continued to have hypertension since admission, medicated with sc heduled carvedilol as well as PRN hydralazine. Pt also co [facility] at [facility] site for which she i s [...] | | | | | [place] [address] | | | | | | [phone] | | | | | | | [...] R?MRN: | | | | | | [id number] | | | [id number] | | | riteri | | | [...] | | | St. | | | [place] | | | y | | | [...] | | | St. | | | [place] | | | y | | | [...] | | | St. | | | [place] | | | y | | | [...] | | | St | | | [place] | | | y | | | [...] St | | | | | | [place] | | | y | | | [...] | | | St. | | | [place] | | | y | | | [...] | | | St. | | | [place] | | | y H. | | [...] | | | St. | | | [place] | | | y H. | | [...] | | | St. | | | [place] | | | y H. | | [...] | | | St. | | | [place] | | | y H. | | [...] | | | St. | | | [place] | | | y H. | | [...] | | | St. | | | [place] | | | y H. | | [...] | | | MD | | | Engineering Technical Specialist | | | al | | [...] | | | [id number] | | | [id number] | | | eb | | | [...] [facility] | | | | performed at [facility], [address] | | LABORATORY | | | | [address], | | | | | | [place] [address] | | | | + + + + + + + + | Specimen | + + | | + + + + + + + | Performing | Address | City/State/Zipcode | Phone Number | | Organization | | | | + + + + + | [facility] | [address] | [place] [address] | [phone] | + + + + + CBC [...] [facility] | | | | performed at [facility], [address] | | LABORATORY | | | | [address], | | | | | | [place] [address] | | | | + + + + + + + + | Specimen | + + | | + + + + + + + | Performing | Address | City/State/Zipcode | Phone Number | | Organization | | | | + + + + + | [facility] | [address] | [place] [address] | [phone] | + + + + + Renal [...] W | | | | | | [facility], | | | | | | [place] [address] | | | | + + + + + + + + | Specimen | + + | Blood | + + + + + + + | Performing | Address | City/State/Zipcode | Phone Number | | Organization | | | | + + + + + | [facility] | [address] | [place] [address] | [phone] | + + + + + HEMODIALYSIS [...] [R06.02] | | | ESRD needing dialysis ([facility]) [N18.6, Z99.2] Chronic pleural effusion | | [...] | | | | | [place] [address] | | | | + + + + + + + + | Specimen | + + | | + + + + + + + | Performing | Address | City/State/Zipcode | Phone Number | | Organization | | | | + + + + + | [facility] | [address] | [place] [address] | [phone] | + + + + + CBC [...] [facility] | | | | performed at [facility], [address] | | LABORATORY | | | | [address], | | | | | | [place] [address] | | | | + + + + + + + + | Specimen | + + | | + + + + + + + | Performing | Address | City/State/Zipcode | Phone Number | | Organization | | | | + + + + + | [facility] | [address] | [place] [address] | [phone] | + + + + + Renal [...] 7 (L)Comment: GFR <60: | >60 | [facility] [...] W | | | | | | [facility], | | | | | | [place] [address] | | | | + + + + + + + + | Specimen | + + | Blood | + + + + + + + | Performing | Address | City/State/Zipcode | Phone Number | | Organization | | | | + + + + + | [facility] | [address] | [place] [address] | [phone] | + + + + + Iron [...] Testing | 15 - 50 % | [facility] | | | Saturation | performed at [facility], [address] | | LABORATORY | | | | [address], | | | | | | [place] [address] | | | | + + + + + + + + | Specimen | + + | Blood | + + + + + + + | Performing | Address | City/State/Zipcode | Phone Number | | Organization | | | | + + + + + | [facility] | [address] | [place] [address] | [phone] | + + + + + Ferritin (01/24/2019 5:53 AM PST) + + + + + + | Component | Value | Ref Range | Performed | Pathologist | | | | | At | Signature | + + + + + + | Ferritin | 805 (H)Comment: Testing | 6 - 170 ng/mL | [facility] | | | | performed at [facility], [address] | | LABORATORY | | | | [address], | | | | | | [place] [address] | | | | + + + + + + + + | Specimen | + + | Blood | + + + + + + + | Performing | Address | City/State/Zipcode | Phone Number | | Organization | | | | + + + + + | [facility] | [address] | [place] [address] | [phone] | + + + + + Creatine [...] Court, | | | | | | [facility] [address] | | | | + + + + + + | CK-MB | 0Comment: Testing | 0 - 3 % | [facility] | | | | performed by [facility], | | LABORATORY | | | | [address] [facility], | | | | | | [facility] [address] | | | | + + + + + + | CK-BB | 0Comment: Testing | 0 % | [facility] | | | | performed by [facility], | | LABORATORY | | | | [address] [facility], | | | | | | [facility] [address] | | | | + + + + + + | CK, Total | 156Comment: Testing | 24 - 173 U/L | [facility] | | | | performed at [facility], | | LABORATORY | | | | [address], | | | | | | [place] [address] | | | | + + + [...] [address], | | | | | | [place] [address] | | | | + + + + + + + + | Specimen | + + | Blood | + + + + + + + | Performing | Address | City/State/Zipcode | Phone Number | | Organization | | | | + + + + + | [facility] | [address] | [place] [address] | [phone] | + + + + + Phosphorus [...] [facility], [address] | | LABORATORY | | | | [address], | | | | | | [place] [address] | | | | + + + + + + + + | Specimen | + + | Blood | + + + + + + + | Performing | Address | City/State/Zipcode | Phone Number | | Organization | | | | + + + + + | [facility] | [address] | [place] [address] | [phone] | + + + + + Magnesium [...] [address], | | | | | | [place] [address] | | | | + + + + + + + + | Specimen | + + | Blood | + + + + + + + | Performing | Address | City/State/Zipcode | Phone Number | | Organization | | | | + + + + + | [facility] | [address] | [place] [address] | [phone] | + + + + + Basic [...] W | | | | | | [facility], | | | | | | [place] [address] | | | | + + + + + + + + | Specimen | + + | Blood | + + + + + + + | Performing | Address | City/State/Zipcode | Phone Number | | Organization | | | | + + + + + | [facility] | [address] | [place] [address] | [phone] | + + + + + CBC [...] | | | | | at [facility], [address] | | | | | | [employer], | | | | | | [place] [address] | | | | | |Testing performed at [facility], [address] [facility], [place] [address] | | | | | | | | | | + + +---- + + + + + | Specimen | + + | Blood | + + + + + + + | Performing | Address | City/State/Zipcode | Phone Number | | Organization | | | | + + + + + | [facility] | [address] | [place] [address] | [phone] | + + + + + Troponin [...] at | | | | | | [facility];[address] [facility] | | | | | | vd;[place] [address] | | | | + + + + + + + + | Specimen | + + | Blood | + + + + + + + | Performing | Address | City/State/Zipcode | Phone Number | | Organization | | | | + + + + + | [facility] | [address] | [place] [address] | [phone] | + + + + + XR [...] CHEST AP PORTABLE (01/07/2019); CHEST TWO VIEWS 92357 (01/06/2019); | | | FINDINGS: Mild cardiomegaly. [...] PORTABLE (01/07/2019); CHEST | | TWO VIEWS 50533 (01/06/2019); | | | | FINDINGS: | [...] (H)Comment: | 0 - 100 pg/mL | [facility] | | | | Testing performed at | | LABORATORY | | | | [facility];[address] [place] [address] | | | | | | Blvd;[place] [address] | | | | + + + + + + + + | Specimen | + + | Blood | + + + + + + + | Performing | Address | City/State/Zipcode | Phone Number | | Organization | | | | + + + + + | [facility] | [address] | [place] [address] | [phone] | + + + + + Phosphorus [...] HOSPITAL | | | | performed at [facility];[address] | | LABORATORY | | | | [address];[place], [place] | | | | | | [address] | | | | + + + + + + + + | Specimen | + + | Blood | + + + + + + + | Performing | Address | City/State/Zipcode | Phone Number | | Organization | | | | + + + + + | [facility] | [address] | [place] [address] | [phone] | + + + + + Troponin [...] at | | | | | | [facility];[address] [facility] | | | | | | [facility];[place] [address] | | | | + + + + + + + + | Specimen | + + | Blood | + + + + + + + | Performing | Address | City/State/Zipcode | Phone Number | | Organization | | | | + + + + + | [facility] | [address] | [place] [address] | [phone] | + + + + + Comprehensive [...] [place];[address] | | | | | | [facility];[place], [place] | | | | | | [address] | | | | + + + + + + + + | Specimen | + + | Blood | + + + + + + + | Performing | Address | City/State/Zipcode | Phone Number | | Organization | | | | + + + + + | [facility] | [address] | [place] [address] | [phone] | + + + + + CBC [...] | | LABORATORY | | | | [facility];[address] [place] [address] | | | | | | Blvd;[place] [address] | | | | + + + + + + + + | Specimen | + + | Blood | + + + + + + + | Performing | Address | City/State/Zipcode | Phone Number | | Organization | | | | + + + + + | [facility] | [address] | [place] [address] | [phone] | + + + + + XR [...] (01/07/2019); CHEST TWO | | | VIEWS 58607 (01/06/2019); XR CHEST AP PORTABLE (12/13/2018); | [...] CHEST AP PORTABLE (01/07/2019); CHEST TWO VIEWS 02684 (01/06/2019); XR | | CHEST AP PORTABLE [...] | | | | | ONLY, -COMPUTER (688), | | | | | | video editor Daniela Luciano | | | | [...] correct | | | patient, procedure, equipment, senior administrative support and site/side marked as | | [...] space: 6th Puncture method: | | | gyma-osa-lrrhlu catheter Number of attempts: 1 Drainage amount: [...] | | | | | | | [facility] 01/24/19 at 0305 | | | [...] | dose on [facility] 01/24/19 at 0900 | | AM [...] | | | | | | Starting [facility] 01/24/19 at 0304 | | | [...] | | Arm | | Intravenous, ONCE, [facility] 01/24/19 | | AM PST | | | | | at 0125, For 1 dose | | | | | | + +-------+ +--------+---+--------+ +---+---+ | | | +---+---+ + +-------+ +--------+---+---+ | HYDROmorphone (DILAUDID) | Given | 01/25/20 | 0.5 mg | | | | injection 0.5 mg 0.5 mg, | | 19 1:13 | | | | | Intravenous, ONCE, [facility] 01/24/19 | | PM PST | | | | | at 1215, For 1 dose | | | | | | + +-------+ +--------+---+---+ +---+---+ | | | +---+---+ + +-------+ +------+---+---+ | HYDROmorphone (DILAUDID) | Given | 01/25/20 | 1 mg | | | | injection 1 mg 1 mg, | | 19 4:20 | | | | | Intravenous, ONCE, [facility] 01/24/19 | | AM PST | [...] 19 1:46 | | | | | [facility] 01/24/19 at 0030, For 1 dose [...] | | Starting [facility] 01/24/19 at 0355, | | | [...] 19 2:47 | | | | | [facility] 01/24/19 at 0240, For 1 dose [...] nonresponsive to | | | Tylenol, Starting [facility] 01/24/19 at | | | 1409 [...]
--- OUTSIDE RECORDS SUMMARY | ~2019-03-12 | XMS | Encounter Summary ---
Demographics + + + | Address | [address] | | | [place] [address] | + + + | Home Phone [...] | | | | | [place] [address] | | + + + + + | Thania Mallory | ECON | [address] | | | | | [place] [address] | | + + + + + | Deidra Weldon | ECON | [address] | | | | | [place] | | | | | [address] | | + + + + + Care Team Providers + +------+ + | Care Network Systems Analyst Name | Role | Phone | [...] [address] | | | | | | [address] | [place] | | | | | | [address] | [place], [place] | | | | | | [place] | [address] | | | | | | [place] | Phone: | | | | | | [address] | [phone] | | | | | | Phone: | | | | | | | [phone] | | | | | | | Fax: | | | | | | | [phone] | | +--------+--------+ + + + + Encounter Details +--------+---------+ + + + | Date | Type | Department | Care Team | Description | +--------+---------+ + + + | 11/16/ | Office | Specialty Clinics | Sudhakar Joy | Allergic purpura- | | 2015 | Visit | at [facility] [address] | D, MD [address] [facility] | MEDICARE [address] | | | | [place] Mailcode: | [address] | (Primary Dx); [facility] | | | | [facility] [address] | [place], [place] | ([place] | | | | [place], [place] | [address] | purpura) nephritis; | | | | [address] | [phone] | Anemia of chronic | | | | [phone] | | kidney failure, | | | | | Rtx, [address] | unspecified stage | | | | | [address] | | | | | | Road [place], [place] | | | | | | [address] | | +--------+---------+ + + + Social [...] soon. Have your friend call Brittney about [phone] Sudhakar Joy MD documented in this encounter [...] [address] Mail code [facility] [place], [place] [id number] documented in this encounter Plan of Treatment +--------+ + + + + | Date | Type | Specialty | Care Team | Description | +--------+ + + + + | 05/04/ | Hospital | Adult Acute Care | El Starr MD | | | 2022 | Encounter | | [address] | | | | | | [place], [place] | | | | | | [address] | | | | | | [phone] | | | | | | | [...]
--- OUTSIDE RECORDS SUMMARY | ~2019-03-12 | XMS | Encounter Summary ---
Demographics + + + | Address | [address] | | | [place] [address] | + + + | Home Phone [...] Author | [facility] | | | and Josephana | + + + | Organization | [facility] | [...] Providers + +------+ + | Care Shift Leader Name | Role | Phone | [...] NEPHROLOGY [address] | MD [address] | | | | | [address] | [address] [place] | | | | | [place], [place] | [place] [address] | | | | | [address] | [phone] | | | | | [phone] | | | +--------+ + + + [...] [address] | | | | | | [place] [address] | | | | | | [phone] | | | | | | | | +--------+---------+ + + + documented as of this encounter Visit Diagnoses Not on filedocumented in this encounter"
--- OUTSIDE RECORDS SUMMARY | ~2019-03-12 | XMS | Encounter Summary ---
Demographics + + + | Address | [address] | | | [place] [address] | + + + | Home Phone [...] + + + | Author | and [facility] | | | and Josephana | + + + | Organization | and [facility] [...] Providers + +------+ + | Care Diabetes Physician Name | Role | Phone | [...] + | 03/05/ | Clinical | [facility] | Blake Chavarria | End stage renal | | 2013 | Support | SURGERY [address] | MD Antonieta, FACS [address] | failure on dialysis | | | | [place], [place] | [facility] | ([facility]) (Primary Dx) | | | | [address] | [place] [address] | | | | | [phone] | [phone] | | | | | | | [...] DAV[place] | | | | | | [place] [address] | | | | | | [phone] | | | | | | | | +--------+---------+ + + + documented as of this encounter Visit Diagnoses + + | Diagnosis | + + | End stage renal failure on dialysis (HCC) - Primary End stage renal disease | + + documented in this encounter"
--- OUTSIDE RECORDS SUMMARY | ~2019-03-12 | XMS | Encounter Summary ---
Demographics + + + | Address | [address] | | | [place] [address] | + + + | Home Phone [...] | | | | | [place] [address] | | + + + + + | Thania Mallory | ECON | [address] | | | | | [place] [address] | | + + + + + | Deidra Weldon | ECON | [address] | | | | | [place] | | | | | [address] | | + + + + + Care Team Providers + +------+ + | Care Configuration Management Consultant Name | Role | Phone | [...] potential | | | | Caro [place], | [place], [place] | donor/checking in | | | | [place] [address] | [address] | with SW) | | | | [phone] | | | +--------+ + + + [...] [place] | | | | | | [address] | | | | | | [phone] | | | | | | | | +--------+ + + + + documented as of this encounter Visit Diagnoses Not on filedocumented in this encounter"
--- OUTSIDE RECORDS SUMMARY | ~2019-03-12 | XMS | Encounter Summary ---
Demographics + + + | Address | [address] | | | [place] [address] | + + + | Home Phone [...] | | | | | [place] [address] | | + + + + + | Thania Mallory | ECON | [address] | | | | | [place] [address] | | + + + + + | Deidra Weldon | ECON | [address] | | | | | [place] | | | | | [address] | | + + + + + [...] change | | | | Caro Chan [place], | [place], [place] | clinic appt) | | | | [place] [address] | [address] | | | | | [phone] | | | +--------+ + + + [...] [place] | | | | | | [address] | | | | | | [phone] | | | | | | | | +--------+ + + + + documented as of this encounter Visit Diagnoses Not on filedocumented in this encounter"
--- OUTSIDE RECORDS SUMMARY | ~2019-03-12 | XMS | Encounter Summary ---
Demographics + + + | Address | [address] | | | [place] [address] | + + + | Home Phone [...] | [facility] | | | and Josephana | + + + | Organization | [facility] [...] Team Providers + +------+ + | Care Kettle Chipper Name | Role | Phone | [...] | NEPHROLOGY [address] | [address] | | | | | [address] | [address] [place] | | | | | [place], [place] | [place] [address] | | | | | [address] | [phone] | | | | | [phone] | | | +--------+--------+ + + + [...] | | | | | [place] [address] | | | | | | [phone] | | | | | | | | +--------+---------+ + + + documented as of this encounter Visit Diagnoses Not on filedocumented in this encounter"
--- OUTSIDE RECORDS SUMMARY | ~2019-03-12 | XMS | Encounter Summary ---
Demographics + + + | Address | [address] | | | [place] [address] | + + + | Home Phone [...] | | | | | [place] [address] | | + + + + + | Thania Mallory | ECON | [address] | | | | | [place] [address] | | + + + + + | Deidra Weldon | ECON | [address] | | | | | [place] | | | | | [address] | | + + + + + Care Team Providers + +------+ + | Care Sand Slinger Name | Role | Phone | + [...] | [facility] | recommendations) | | | | Caro [place], | [place], [place] | | | | | [place] [address] | [address] | | | | | [phone] | | | +--------+ + + + [...] | | | | | | [place] | | | | | | [address] | | | | | | [phone] | | | | | | | | +--------+ + + + + documented as of this encounter Visit Diagnoses Not on filedocumented in this encounter"
--- OUTSIDE RECORDS SUMMARY | ~2019-03-12 | XMS | Encounter Summary ---
[...] Author | [facility] | | | and Josephana | + + + | Organization | [facility] [...] Team Providers + +------+ + | Care Court Stenographer Name | Role | Phone | + [...] + + | 12/17/ | Telephone | [facility] | [place], | Appointment | | 2019 | | CENTER CASE | Irish Obrien CMA | (Appointment with | | | | MANAGEMENT [address] | | PCP needed) | | | | [address] | | | | | | [place], [place] | | | | | | [address] | | | | | | [phone] | | | +--------+ + + + [...] DAV[place]SON | | | | | | [place] [address] | | | | | | [phone] | | | | | | | | +--------+---------+ + + + documented as of this encounter Visit Diagnoses Not on filedocumented in this encounter"
--- OUTSIDE RECORDS SUMMARY | ~2019-03-12 | XMS | Encounter Summary ---
Demographics + + + | Address | [address] | | | [place] [address] | + + + | Home Phone [...] | Author | [facility] | | | and [place]ana | + + + | Organization | [facility] [...] Providers + +------+ + | Care Draw String Knotter Name | Role | Phone | + +------+ + PCP | Unavailable | + +------+ + Encounter Details +--------+ + + + + | Date | Type | Department | Care Team | Description | +--------+ + + + + | 04/07/ | Hospital | [facility] | Conversion | | | 2015 | Encounter | CENTER [facility] | Transaction, | | | | | CLINIC [address] | Provider Unknown | | | | | [place], [place] | [phone] | | | | | [address] | | | | | | [phone] | | | +--------+ + + + [...] E | | | | | | [place] [address] | | | | | | [phone] | | | | | | | [...] EXTERNAL LAB | | Testing performed at [facility];[address] [place] [address];[place] [address] MRSA PCR | | | NEGATIVE Testing performed at | | | [facility];[address] [place] [address];[place] [address] | | + + + + +---------+ [...] | | | Patient | performed at [facility];[address] | | LAB | | | | [address];[place], [place] | | | | | | [address] | | | | + + + [...] [place];[address] | | | | | | [address] [facility];[place], [place] | | | | | | [address] | | | | + + + [...] EXTERNAL | | | | performed at [facility];[address] | | LAB | | | | [address];[place] | | | | | | [address] | | | | + + + + + + | RED CELL | 3.67 (L)Comment: Testing | 3.70 - 5.10 | EXTERNAL | | | COUNT | performed at [facility];[address] | M/uL | LAB | | | | [address];[place] | | | | | | [address] | | | | + + + + + + | Hgb | 13.0Comment: Testing | 11.3 - 15.5 | EXTERNAL | | | | performed at [facility];888 | g/dL | LAB | | | | [address];[place] | | | | | | [address] | | | | + + + + + + | Hematocrit, | 38.3Comment: Testing | 34.0 - 46.0 % | EXTERNAL | | | POC | performed at [facility];[address] | | LAB | | | | [address];[place] | | | | | | [address] | | | | + + + + + + | MCV | 104.3 (H)Comment: | 80.0 - 100.0 fl | EXTERNAL | | | | Testing performed at | | LAB | | | | [facility];[address] | [address];[place] [address] | | | | + + + + + + | MCH | 35.4 (H)Comment: Testing | 27.0 - 34.0 pg | EXTERNAL | | | | performed at [facility];[address] | | LAB | | | | [address];[place] | | | | | | [address] | | | | + + + + + + | MCHC | 33.9Comment: Testing | 32.0 - 35.5 | EXTERNAL | | | | performed at [facility];888 | g/dL | LAB | | | | [address];[place] | | | | | | [address] | | | | + + + + + + | RDW-CV | 48.1Comment: Testing | 37 - 53 fl | EXTERNAL | | | | performed at [facility];[address] | | LAB | | | | [address];[place] | | | | | | [address] | | | | + + + + + + | Platelet | 157Comment: Testing | 150 - 400 K/uL | EXTERNAL | | | Count | performed at [facility];[address] | | LAB | | | Plasma | [address];[place] | | | | | | [address] | | | | + + + + + + | MPV | 9.3Comment: Testing | fl | EXTERNAL | | | | performed at [facility];[address] | | LAB | | | | [address];[place] | | | | | | [address] | | | | + + + + + + | Differentia | AUTOMATEDComment: | | EXTERNAL | | | l Type | Testing performed at | | LAB | | | | [facility];[address];[place] [address] | | | | + + + + + + | % Segmented | 55.8Comment: Testing | % | EXTERNAL | | | | performed at [facility];[address] | | LAB | | | Neutrophils | [address];[place] | | | | | | [address] | | | | + + + + + + | % | 35.8Comment: Testing | % | EXTERNAL | | | Lymphocytes | performed at [facility];[address] | | LAB | | | | [address];[place] | | | | | | [address] | | | | + + + + + + | % Monocytes | 6.0Comment: Testing | % | EXTERNAL | | | | performed at [facility];[address] | | LAB | | | | [address];[place] | | | | | | [address] | | | | + + + + + + | % | 1.9Comment: Testing | % | EXTERNAL | | | Eosinophils | performed at [facility];[address] | | LAB | | | | [address];[place] | | | | | | [address] | | | | + + + + + + | % Basophils | 0.5Comment: Testing | % | EXTERNAL | | | | performed at [facility];[address] | | LAB | | | | [address];[place] | | | | | | [address] | | | | + + + + + + | Absolute | 2.8Comment: Testing | 1.9 - 7.4 K/uL | EXTERNAL | | | Segmented | performed at [facility];[address] | | LAB | | | Neutrophils | [address];[place] | | | | | | [address] | | | | + + + + + + | Absolute | 1.8Comment: Testing | 1.0 - 3.9 K/uL | EXTERNAL | | | Lymphocytes | performed at [facility];[address] | | LAB | | | | [address];[place] | | | | | | [address] | | | | + + + + + + | Absolute | 0.3Comment: Testing | 0 - 0.8 K/uL | EXTERNAL | | | Monocytes | performed at [facility];[address] | | LAB | | | | [address];[place] | | | | | | [address] | | | | + + + + + + | Absolute | 0.1Comment: Testing | 0 - 0.5 K/uL | EXTERNAL | | | Eosinophils | performed at [facility];[address] | | LAB | | | | [address];[place] | | | | | | [address] | | | | + + + + + + | Absolute | 0.0Comment: Testing | 0 - 0.1 K/uL | EXTERNAL | | | Basophils | performed at [facility];[address] | | LAB | | | | [address];[place] | | | | | | [address] | | | | + + + [...] | | | QUALITATIVE | performed at [facility];[address] | | LAB | | | | [address];[place], [place] | | | | | | [address] | | | | + + + [...] EXTERNAL | | | | performed at [facility];888 | mmol/L | LAB | | | | [address];[place] | | | | | | [address] | | | | + + + + + + | K | 3.3 (L)Comment: Testing | 3.5 - 4.9 | EXTERNAL | | | | performed at [facility];888 | mmol/L | LAB | | | | [address];[place] | | | | | | [address] | | | | + + + + + + | Cl | 99Comment: Testing | 99 - 109 mmol/L | EXTERNAL | | | | performed at [facility];[address] | | LAB | | | | [address];[place] | | | | | | [address] | | | | + + + + + + | CO2 | 29Comment: Testing | 23 - 32 mmol/L | EXTERNAL | | | | performed at [facility];[address] | | LAB | | | | [address];[place] | | | | | | [address] | | | | + + + + + + | Anion Gap | 13Comment: Testing | 5 - 20 mmol/L | EXTERNAL | | | | performed at [facility];[address] | | LAB | | | | [address];[place] | | | | | | [address] | | | | + + + + + + | Glucose, | 92Comment: Testing | 65 - 99 mg/dL | EXTERNAL | | | Fasting | performed at [facility];[address] | | LAB | | | | [address];[place] | | | | | | [address] | | | | + + + + + + | BUN | 30 (H)Comment: Testing | 8 - 25 mg/dL | EXTERNAL | | | | performed at [facility];[address] | | LAB | | | | [address];[place] | | | | | | [address] | | | | + + + + + + | Creatinine | 7.21 (H)Comment: Testing | 0.50 - 1.00 | EXTERNAL | | | | performed at [facility];888 | mg/dL | LAB | | | | [address];[place] | | | | | | [address] | | | | + + + + + + | BUN/Creatin | 4Comment: Testing | | EXTERNAL | | | ine Ratio | performed at [facility];[address] | | LAB | | | | [address];[place] | | | | | | [address] | | | | + + + + + + | Calcium | 8.3 (L)Comment: NOTE NEW | 8.5 - 10.5 | EXTERNAL | | | | REFERENCE RANGETesting | mg/dL | LAB | | | | performed at [facility];[address] | | | | | | [address];[place] | | | | | | [address] | | | | + + + [...] [place] | | | | | | [address] | | | | + + + [...]
--- OUTSIDE RECORDS SUMMARY | ~2019-03-12 | XMS | Encounter Summary ---
Demographics + + + | Address | [address] | | | [place] [address] | + + + | Home Phone [...] | Author | [facility] | | | and Josephana | + + + | Organization | [facility] | [...] Team Providers + +------+ + | Care Shade Maker Name | Role | Phone | [...] NEPHROLOGY [address] | M, DO [address] | | | | | [address] | [place], [address] | | | | | [place], [place] | [place], [place] | | | | | [address] | [address] | | | | | [phone] | | | +--------+ + + + [...] [place] | | | | | | [place] [address] | | | | | | [phone] | | | | | | | | +--------+---------+ + + + documented as of this encounter Visit Diagnoses Not on filedocumented in this encounter"
--- OUTSIDE RECORDS SUMMARY | ~2019-03-12 | XMS | Encounter Summary ---
Demographics + + + | Address | [address] | | | [place] [address] | + + + | Home Phone [...] | | | | | [place] [address] | | + + + + + | Thania Mallory | ECON | [address] | | | | | [place] [address] | | + + + + + | Deidra Weldon | ECON | [address] | | | | | [place] | | | | | [address] | | + + + + + Care Team Providers + +------+ + | Care Morale Officer Name | Role | Phone | [...] | Nephrology at | MD Emanuel [address] | Requested (UDS) | | | | [place] | [address] | | | | | [facility] | [place], [place] | | | | | [address] | [address] | | | | | Mailcode: DCH7 | [phone] | | | | | [place] | | | | | | [place], [place] | | | | | | [address] | | | | | | [phone] | | | +--------+ + + + [...] Denise | | | | | | [place], [place] | | | | | | [address] | | | | | | [phone] | | | | | | | | +--------+ + + + + documented as of this encounter Visit Diagnoses Not on filedocumented in this encounter"
--- OUTSIDE RECORDS SUMMARY | ~2019-03-12 | XMS | Encounter Summary ---
Demographics + + + | Address | [address] | | | [place] [address] | + + + | Home Phone [...] | Author | [facility] | | | and [place]ana | + + + | Organization | [facility] [...] Providers + +------+ + | Care Vehicle Mechanic Name | Role | Phone | [...] + + | 02/21/ | Telephone | [facility] | Blake Chavarria | Procedure (Question) | | 2013 | | SURG[address] | MD Antonieta, FACS [address] | | | | | [place], [place] | [address] [facility] | | | | | [address] | [place] [address] | | | | | [phone] | [phone] | | | | | | | [...] [place] | | | | | | [place] [address] | | | | | | [phone] | | | | | | | | +--------+---------+ + + + documented as of this encounter Visit Diagnoses Not on filedocumented in this encounter"
--- OUTSIDE RECORDS SUMMARY | ~2019-03-12 | XMS | Encounter Summary ---
Demographics + + + | Address | [address] | | | [place] [address] | + + + | Home Phone [...] | | | | | [place] [address] | | + + + + + | Thania Mallory | ECON | [address] | | | | | [place] [address] | | + + + + + | Deidra Weldon | ECON | [address] | | | | | [place] | | | | | [address] | | + + + + + Care Team Providers + +------+ + | Care Prevention Specialist Name | Role | Phone | [...] | Family sheet) | | | | [address] | [address] | | | | | Loop Mailcode: | [place], [place] | | | | | [address] | [address] | | | | | [address] | [phone] | | | | | [place], [place] | | | | | | [address] | | | | | | [phone] | | | +--------+ + + + [...] Denise | | | | | | [place] | | | | | | [address] | | | | | | [phone] | | | | | | | | +--------+ + + + + documented as of this encounter Visit Diagnoses Not on filedocumented in this encounter"
--- OUTSIDE RECORDS SUMMARY | ~2019-03-12 | XMS | Encounter Summary ---
[...] | [facility] | | | and [place]ana | + + + | Organization | [facility] [...] + +------+ + | Care Change Management Lead Name | Role | Phone | [...] | stage renal | [address] | [address] [place] [address] | | | | | disease) | Shun Griffin | [place] | | | | | ([facility]) | [address] | [address] [place] | | | | | Anemia in | [place], [place] | [place] | | | | | ESRD | [address] | [address] Phone: | | | | | (end-stage | Phone: | [phone] | | | | | renal | [phone] | Fax: | | | | | disease) | Fax: | [phone] | | | | | ([facility]) | [phone] | | | | | | Procedures [...] DO [address] | renal disease) ([facility]) | | | | [address] | [place], [address] | (Primary Dx) | | | | [place], [place] | [place], [place] | | | | | [address] | [address] | | | | | [phone] | | | +--------+ + + + [...] recheck her in 2 weeks. : [place] Fina Joy M.D., Pediatric Nephrology, [facility] documented in th is encounter Plan [...] [place] | | | | | | [place] [address] | | | | | | [phone] | | | | | | | | +--------+---------+ + + + documented as of this encounter Visit Diagnoses + + | Diagnosis | + + | ESRD (end stage renal disease) (HCC) - Primary End stage renal disease | + + documented in this encounter"
--- OUTSIDE RECORDS SUMMARY | ~2019-03-12 | XMS | Encounter Summary ---
Demographics + + + | Address | [address] | | | [place] [address] | + + + | Home Phone [...] | | | | | [place] [address] | | + + + + + | Thania Mallory | ECON | [address] | | | | | [place] [address] | | + + + + + | Deidra Weldon | ECON | [address] | | | | | [place] | | | | | [address] | | + + + + + Care Team Providers + +------+ + | Care Division Road Supervisor Name | Role | Phone | + +------+ + | Shahid Camargo MD | PCP | | + +------+ + Encounter Details +--------+ + + + + | Date | Type | Department | Care Team | Description | +--------+ + + + + | 12/20/ | Hospital | Radiology at [facility] | | | | 2012 | Encounter | [address] | | | | | | Mailcode: [address] | | | | | | [place] | | | | | | [place], [place] | | | | | | [address] | | | | | | [phone] | | | +--------+ + + + [...] | | | | | | [place], [place] | | | | | | [address] | | | | | | [phone] | | | | | | | [...] | e | 9:27 AM | MEDICARE 2168 | procedure are in the | | [...]
--- OUTSIDE RECORDS SUMMARY | ~2019-03-12 | XMS | Encounter Summary ---
Demographics + + + | Address | [address] | | | [place] [address] | + + + | Home Phone [...] + | Author | [facility] | | | and [place]ana | + + + | Organization | [facility] [...] Team Providers + +------+ + | Care Distributed Generation Project Manager Name | Role | Phone [...] [address] | | | | | [place], [place] | [place], [place] | | | | | [address] | [address] | | | | | [phone] | | | +--------+--------+ + + + [...] | | | | | [place] [address] | | | | | | [phone] | | | | | | | | +--------+---------+ + + + documented as of this encounter Visit Diagnoses Not on filedocumented in this encounter"
--- OUTSIDE RECORDS SUMMARY | ~2019-03-12 | XMS | Encounter Summary ---
Demographics + + + | Address | [address] | | | [place] [address] | + + + | Home Phone [...] Team Providers + +------+ + | Care Economic Historian Name | Role | Phone | + +------+ + | Tien Nicholson MD | PCP | | + +------+ + Encounter Details +--------+ + + + + | Date | Type | Department | Care Team | Description | +--------+ + + + + | 10/17/ | Hospital | [facility] | Nikita, | SOB (shortness of | | 2019 - | Encounter | [facility] | MD Naresh [address] | breath); Pleural | | | | CARE FLOOR [address] | effusion on right; | | 10/20/ | | [address] | [place] [address] | ESRD needing | | 2019 | | [place], [place] | [phone] | dialysis ([facility]); End | | | | [address] | | stage renal disease | | | | [phone] | | (HCC) | +--------+ + + [...] + + +---------+ + + | B Tdwgdox-S-Qtbfp | Take 1 tablet by | | [...] 10/19/182357 Date of Service: 10/19/182357 Status: Signed Mold Checker: Vira Ford RN (Registered Nurse) No acute [...] 10/19/181827 Date of Service: 10/19/181826 Status: Signed Mold Checker: Trent Jovel RN (Registered Nurse) Dialysis completed today 2.4L removed. Remains on fluid restriction. Medicated for pain x 2. End of shift review complete. Trent Jovel RN onver arturo Transaction, Provider Unknown - 10/19/2018 3:36 PM PDT Case Management by DORON Diallo at 10/19/18 1536 Author: DORON Diallo Service: (none) Author Type: Mold Machine Operator Filed: 10/19/18 1537 Date of Service: 10/19/18 1536 Status: Signed Mold Checker: DORON Diallo (Mold Machine Operator) Discharge planning: Return home when medically ready for discharge. Pt is receiving dialysi s on MWF. Pt is currently on 4L O2, pt may need a home O2 evaluation at discharge. Antonio Carrasco MD - 10/19/2018 12:14 PM PDTFormatting of this note might be different from the orig inal. Progress Notes by Antonio Pabon MD at 10/19/18 5384 Author: Antonio Pabon MD Service: Nephrology Author Type: Physician Filed: 10/25/18 9862 Date of Service: 10/19/18 1214 Status: Addendum Mold Checker: Antonio Pabon MD (Physician) Related Notes: Original Note by Antonio Pabon MD (Physician) filed at 10/25/18 7736 [facility] Service: NEPHROLOGY Progress Note Dara Weldon 23 y.o. [id number] 4465/[id number] female TIEN NICHOLSON 23-year-old female with [...] AV FISTULA; Surgeon: Rik Simon MD; Location: [facility] OR; Service: Vascula r; Laterality: Left; cephalic AV FISTULA REPAIR Left 03/07/2014 Procedure: AV FISTULA - GRAFT REPAIR/REVISION; Surgeon: Rik Simon MD; Location: [facility] IN OR; Service: Vascular; Laterality: Left; DECLOT GRAFT Left 03/07/2014 Procedure: GRAFT - DECLOT; Surgeon: Rik Simon MD; Location: [facility] MAIN OR; Service: Vas cular; Laterality: Left; DIALYSIS FISTULA CREATION N/A 04/08/2014 Procedure: DIALYSIS CATHETER - INSERTION; Surgeon: Rik Simon MD; Location: [facility] OR ; Service: Vascular; Laterality: N/A; tunneled catheter LAPAROSCOPIC PERITONEAL DIALYSIS CATHETER INSERTION x2 LAPAROSCOPIC PERITONEAL DIALYSIS CATHETER INSERTION Right 07/2013 current dialysis access MWF dialysis RENAL BIOPSY Left 2003 SUPERFICIALIZATION OF AV FISTULA Left 06/24/2014 Procedure: AV FISTULA - SUPERFICIALIZATION; Surgeon: Rik Simon MD; Location: [facility] MAIN OR; Service: Vascular; Laterality: [...] Social History Narrative She lives in [facility]. She does not work. She has [...] ral space is punctured with an 5 [place] [employer] centesis catheter. Fluid is aspirated without complication. [...] 1 VIEW (10/17/2018); CHEST TWO V IEWS 06485 (10/17/2018); FINDINGS: Compared to the prior examination [...] MR, severe TR.severe pulmonary hypertens ion Chest u-zog-poqwewtgamxl with pulmonary edema and large right pleural [...] earlier and charting completed later Dictation software, KIYATEC, used which may contain error for similar sounding words even af ter review. Personal communication requested for any clarification. inGerber pastrana MD - 10/19/2018 7:48 AM PDT Progress Notes by Gerber Pearson MD at 10/19/18 0748 Author: Gerber Pearson MD Service: Hospitalist Author Type: Physician Filed: 10/19/18 0753 Date of Service: 10/19/1848 Status: Signed Mold Checker: Gerber Pearson MD (Physician) [facility] Service: Hospitalist Progress Note Hospital Day: [...] with dyspnea Patient was recently discharged from [facility] on 08/23/2018. For full note, please see ketan agudelo summary from hospitalist. In summary, the patient was admitted for noncardiogenic pulmo nary edema after thoracentesis. At that point, prior to admission, [facility] in [place] on 08/21 where she underwent right th [...] BUN 90 on admission -History of a [place] Schnlein purpura -Last hemodialysis approximately 2 weeks [...] 10/19/18733 Date of Service: 10/19/18733 Status: Signed Mold Checker: Vira Ford RN (Registered Nurse) No acute changes from shift assessment. VSS. Pt medicated for pain as requested and availab le. End of shift review and 24 hour chart check complete. onver arturo Transaction, Provider Unknown - 10/18/2018 5:01 PM PDT Case Management by DORON Diallo at 10/18/181700 Author: DORON Diallo Service: (none) Author Type: Mold Machine Operator Filed: 10/18/181706 Date of Service: 10/18/181700 Status: Signed Mold Checker: DORON Diallo (Mold Machine Operator) Discharge planning: Return home when medically ready for discharge. Gerber Fernandez MD - 10/18/2018 7:46 AM PDT Progress Notes by Gerber Pearson MD at 10/18/18745 Author: Gerber Pearson MD Service: Hospitalist Author Type: Physician Filed: 10/18/18 0751 Date of Service: 10/18/18745 Status: Signed Mold Checker: Gerber Pearson MD (Physician) [facility] Service: Hospitalist Progress Note Hospital Day: [...] with dyspnea Patient was recently discharged from [facility] on 08/23/2018. For full note, please see ketan agudelo summary from hospitalist. In summary, the patient was admitted for noncardiogenic pulmo nary edema after thoracentesis. At that point, prior to admission, [facility] in [place] on 08/21 where she underwent right th [...] BUN 90 on admission -History of a [place] purpura -Last hemodialysis approximately 2 weeks [...] 10/25/182002 Date of Service: 10/18/18744 Status: Signed Mold Checker: Antonio Pabon MD (Physician) [facility] Service: NEPHROLOGY Progress Note Dara Weldon 23 y.o. [id number] 4465/[id number] female [facility] Day: LOS: 1 day 23-year-old female with [...] AV FISTULA; Surgeon: Rik Simon MD; Location: [facility] OR; Service: Vascula r; Laterality: Left; cephalic AV FISTULA REPAIR Left 03/07/2014 Procedure: AV FISTULA - GRAFT REPAIR/REVISION; Surgeon: Rik Simon MD; Location: [facility] IN OR; Service: Vascular; Laterality: Left; DECLOT GRAFT Left 03/07/2014 Procedure: GRAFT - DECLOT; Surgeon: Rik Simon MD; Location: [facility] OR; Service: Vas cular; Laterality: Left; DIALYSIS FISTULA CREATION N/A 04/08/2014 Procedure: DIALYSIS CATHETER - INSERTION; Surgeon: Rik Simon MD; Location: [facility] OR ; Service: Vascular; Laterality: N/A; tunneled catheter LAPAROSCOPIC PERITONEAL DIALYSIS CATHETER INSERTION x2 LAPAROSCOPIC PERITONEAL DIALYSIS CATHETER INSERTION Right 07/2013 current dialysis access MWF dialysis RENAL BIOPSY Left 2003 SUPERFICIALIZATION OF AV FISTULA Left 06/24/2014 Procedure: AV FISTULA - SUPERFICIALIZATION; Surgeon: Rik Simon MD; Location: [facility] OR; Service: Vascular; Laterality: [...] Social History Narrative She lives in [facility]. She does not work. She has [...] oriented x3, mood and affect looks ok AMRISEL AVF +ve thrill/ bruit LABS: Recent Results [...] QTC Calculation (Bezet) 469 ms Calculated P [place] 46 degrees Calculated R [place] 127 degrees Calculated T [place] 94 degrees Diagnosis Normal sinus rhythm Right [...] MR, severe TR.severe pulmonary hypertens ion Chest a-ais-dvfltremkabj with pulmonary edema and large right pleural [...] earlier and charting completed later Dictation software, KIYATEC, used which may contain error for similar [...] 10/18/1853 Date of Service: 10/18/18650 Status: Signed Mold Checker: Ronnie Vargas RN (Registered Nurse) Pt alert and oriented X 4. PRN pain med given for back pain. No other acute changes durin g shift. Chart check complete onver arturo Transaction, Provider Unknown - 10/17/2018 9:48 AM PDT Case Management by DORON Diallo at 10/17/18 0948 Author: DORON Diallo Service: (none) Author Type: Mold Machine Operator Filed: 10/17/1854 Date of Service: 10/17/18947 Status: Signed Mold Checker: DORON Diallo (Mold Machine Operator) 10/17/18 09 Discharge Planning Evaluation Admitting Diagnosis (SOB) Readmission Other (comment) (Last admit 08/20/18) Living Arrangements Alone Support Systems Family members;Friends/neighbors Type of Residence Private residence House type Apartment Independent with ADL's Yes Independent with Mobility Yes Home Care Services No Caregiver after Discharge No Mental Status Oriented Prior functional status (Independent) Power of Wardrobe Assistant No Resources Financial concerns No Transportation issues No Patient/Family concerns No Prescription Plan Yes Name of Pharmacy ([facility] in [place]) Previous home health equipment No Anticipated Disposition Facility Type Home DORON CM met with pt and discussed discharge planning. Pt is a 23 y.o., female admitted for s hortness of breath. Pt resides alone in an apartment at [address], [address], [place] [address]. Pt reported that she has neighbor and friend support. Pt's mother, Thania cheung can be reached at and sister, Saundra can be reached at . Pt reported being independent with ADL's,, IADL's and mobility prior to this admission. Pt denied previous outpatient OT/PT services, home care services and home O2 prior to this admission. Pt reported that she received dialysis from [facility] [place] on MWF prior to this admission . [...] 10/17/18743 Date of Service: 10/17/18743 Status: Signed Mold Checker: Camilla Moody RPH (Pharmacist) Clinical Pharmacy Note: [...] 0747 Date of Service: 10/17/18716 Status: Signed Mold Checker: Gerber Pearson MD (Physician) [facility] Service: Hospitalist Progress Note Hospital Day: [...] with dyspnea Patient was recently discharged from [facility] on 08/23/2018. For full note, please see discha rge summary from hospitalist. In summary, the patient was admitted for noncardiogenic pulmo nary edema after thoracentesis. At that point, prior to admission, she was [facility] in [place] on 08/21 where she underwent right th [...] the case over the phone with patient's custom feed corn operator Dr. Mahmood, recommends medi oly management [...] creatinine 14, BUN 90 -History of a [place] Schnlein purpura -Last hemodialysis approximately 2 weeks [...] [address] | | | | | | [place] [address] | | | | | | [phone] | | | | | | | [...] | | | | | performed at [facility], [address] | | | | | | [facility], | | | | | | [place] [address] | | | | + + + [...] CHEST 1 VIEW (10/17/2018); CHEST TWO VIEWS 56905 | | | (10/17/2018); FINDINGS: Compared to [...] VIEW | | (10/17/2018); CHEST TWO VIEWS 48874 (10/17/2018); | | FINDINGS: | | Compared [...] pleural space is punctured with an 5 Grenadian Book Buybackesis catheter. | | | Fluid is aspirated [...] pleural space is punctured with an 5 Grenadian Yueh | | Tigglyesis catheter. Fluid is aspirated without complication. The [...] | | | | | | at [facility], [address] | | | | | | [facility], | | | | | | [place] [address] | | | | | |Testing performed at [facility], [address] [place] [address] | | | | | | | [...] EXTERNAL | | | | performed at [facility], [address] | | LAB | | | | [place]al [address], | | | | | | [place] [address] | | | | + + + [...] | | | | | performed at [facility], [address] | | | | | | [facility], | | | | | | [place] [address] | | | | + + + [...] at | | | | | | [facility];[address] [place] [address] | | | | | | [facility];[place] [address] | | | | + + + [...] | | performed at [facility];[address] | | LAB | | | | [address];[place], [place] | | | | | | [address] | | | | + + + [...] at | | | | | | [facility];[address] [place] [address] | | | | | | [facility];[place] [address] | | | | + + + [...] | | performed at [facility];[address] | | LAB | | | | [facility], [place] | | | | | | [address] | | | | + + + [...] | | performed at [facility];[address] | | | | | | Nica [address];[place], [place] | | | | | | [address] | | | | + + + [...] at | | | | | | [facility];[address] [place] [address] | | | | | | Bl;[place] [address] | | | | + + + [...] at | | | | | | [facility];[address] [facility] | | | | | | [facility];[place] [address] | | | | + + + [...] | | | | [facility];[address] [facility] | | | | | | Blvd;[place] [address] | | | | + + + [...]
--- OUTSIDE RECORDS SUMMARY | ~2019-03-12 | XMS | Encounter Summary ---
Demographics + + + | Address | [address] | | | [place] [address] | + + + | Home Phone [...] | | | | | [place] [address] | | + + + + + | Thania Mallory | ECON | [address] | | | | | [place] [address] | | + + + + + | Deidra Weldon | ECON | [address] | | | | | [place] | | | | | [address] | | + + + + + Care Team Providers + +------+ + | Care Creasing And Cutting Press Feeder Name | Role | Phone | [...] Nephrology at | MD Emanuel [address] [facility] [facility] | | | | | [place] | [facility] | | | | | [facility] | [place], [place] | | | | | [address] | [address] | | | | | Mailcode: DCH7 | [phone] | | | | | [place] | | | | | | [place], [place] | | | | | | [address] | | | | | | [phone] | | | +--------+ + + + [...] [facility] | | | | | | [address] | | | | | | [phone] | | | | | | | | +--------+ + + + + documented as of this encounter Visit Diagnoses Not on filedocumented in this encounter"
--- OUTSIDE RECORDS SUMMARY | ~2019-03-12 | XMS | Encounter Summary ---
Demographics + + + | Address | [address] | | | [place] [address] | + + + | Home Phone [...] | [facility] | | | and [place] | + + + | Organization | [facility] | | [...] Team Providers + +------+ + | Care Skein Straightener Name | Role | Phone | [...] | | | | | | [place] | | | | | | | [...] [place]ist[place] | | | | [address] | [place] | Creation | | | | [place] | [place] [address] | | | | | [address] | [phone] | | | | | [phone] | | | +--------+---------+ + + + [...] may interact with prescription medicines or other zslz-gfy-ceemsmq (OTC) drugs. The FDA recommends reading OTC medication labels careful ly to clearly understand the list of active ingredients, directions, and any precautions to help avoid taking too muchacetaminophen. If you have questions, ask your pharmacist or a [facility] care provider. Managing Nausea Some people [...] or skin changes (rash, itching, or hives). 2337-6868 [employer]. [address] [place] [address], [place] [address]. All righ ts reserved. This information is [...] | | | | | [place] [address] | | | | | | [phone] | | | | | | | [...] mL/min/1.73m2 | [facility] | | | MAURITIAN | (<18). | | MEDICAL | | [...] | [address] | [place] | [phone] | | [facility] | | [address] | | | - LABORATORY | | | | + + + + + | [facility] | [address] | [place], [place] | | | [facility] | | [address] | | | - LABORATORY | | [...]
--- OUTSIDE RECORDS SUMMARY | ~2019-03-12 | XMS | Encounter Summary ---
Demographics + + + | Address | [address] | | | [place] [address] | + + + | Home Phone [...] | | | | | [place] [address] | | + + + + + | Thania Mallory | ECON | [address] | | | | | [place] [address] | | + + + + + | Deidra Weldon | ECON | [address] | | | | | [place] | | | | | [address] | | + + + + + Care Team Providers + +------+ + | Care Brake Linings Coater Name | Role | Phone | [...] | | | [address] | [facility] | | | | | [facility], | [place], [place] | | | | | [place] [address] | [address] | | | | | [phone] | | | +--------+ + + + [...] Denise | | | | | | [place] | | | | | | [address] | | | | | | [phone] | | | | | | | | +--------+ + + + + documented as of this encounter Visit Diagnoses Not on filedocumented in this encounter"
--- OUTSIDE RECORDS SUMMARY | ~2019-03-12 | XMS | Encounter Summary ---
Demographics + + + | Address | [address] | | | [place] [address] | + + + | Home Phone [...] | | | | | [place] [address] | | + + + + + | Thania Mallory | ECON | [address] | | | | | [place] [address] | | + + + + + | Deidra Weldon | ECON | [address] | | | | | [place] | | | | | [address] | | + + + + + Care Team Providers + +------+ + | Care Electrical Repairer Name | Role | Phone | [...] | | | | [address] [place] | [facility] | | | | | [facility], | [place], [place] | | | | | [place] [address] | [address] | | | | | [phone] | | | +--------+ + + + [...] Denise | | | | | | [place], [place] | | | | | | [address] | | | | | | [phone] | | | | | | | | +--------+ + + + + documented as of this encounter Visit Diagnoses Not on filedocumented in this encounter"
--- OUTSIDE RECORDS SUMMARY | ~2019-03-12 | XMS | Encounter Summary ---
Demographics + + + | Address | [address] | | | [place] [address] | + + + | Home Phone [...] | Author | [facility] | | | and [place] | + + + | Organization | [facility] | [...] Team Providers + +------+ + | Care Rice Farmer Name | Role | Phone | [...] Dx); Panic disorder | | | | [place], [place] | | | | | | [address] | | | | | | [phone] | | | +--------+ + + + [...] [place] | | | | | | [place] [address] | | | | | | [phone] | | | | | | | | +--------+---------+ + + + documented as of this encounter Visit Diagnoses + + | Diagnosis | + + | Generalized anxiety disorder - Primary | + + | Panic disorder Panic disorder without agoraphobia | + + documented in this encounter"
--- OUTSIDE RECORDS SUMMARY | ~2019-03-12 | XMS | Encounter Summary ---
Demographics + + + | Address | [address] | | | [place] [address] | + + + | Home Phone [...] | | | | | [place] [address] | | + + + + + | Thania Mallory | ECON | [address] | | | | | [place] [address] | | + + + + + | Deidra Weldon | ECON | [address] | | | | | [place] | | | | | [address] | | + + + + + Care Team Providers + +------+ + | Care Shell Core And Molding Supervisor Name | Role | Phone | [...] | | ([facility]) | Anil Griffin | Mailcode: | | | | | Procedures | Long Chan | D[facility]8S | | | | | TRANSTHORACI | [place], [place] | Alexander | | | | | C | [address] | [place], [place] | | | | | ECHOCARDIOGR | Phone: | [phone] | | | | | AM, PEDS | [phone] | Phone: | | | | | | Fax: | [phone] | | | | | | [phone] | Fax: | | | | | | | [phone] | +--------+--------+ + + + + Reason [...] | | | | | [address] [place], | [place], [place] | | | | | [place] [address] | [address] | | | | | [phone] | | | +--------+ + + + [...] | | | | | | [place], [place] | | | | | | [address] | | | | | | [phone] | | | | | | | [...] view image for the detailed interpretation from [employer] results. | CARDIOLOGY | + + + [...] + + | [facility] | [address] | [place], [place] | | | CARDIOLOGY | [address] | [address] | | + + + + + LIT SRUTHI-B WILEY ZHANG (12/20/2012 10:02 AM PDT) + + | Specimen | + + | Blood - Blood | + + + + + + + | Performing | Address | City/State/Zipcode | Phone Number | | Organization | | | | + + + + + | [facility] - | [address] | [place] [address] | | | IMMUNOGENETICS/TRANS | [address] [...] [facility] - | [address] | [place] [address] | | | IMMUNOGENETICS/TRANS | [address] [...] - | [address] | [place], [place] | | | IMMUNOGENETICS/TRANS | [address] [...] - | [address] | [place], [place] | | | IMMUNOGENETICS/TRANS | Suite [...] + + | [facility] - | [address] | [place] [address] | | | IMMUNOGENETICS/TRANS | [address] [...] [facility] - | [address] | [place] [address] | | | IMMUNOGENETICS/TRANS | [address] [...] [facility] | | | , SERUM | [facility],[address] | | REG UNIV | | | | [place], [facility],[place] | | PTH - INTFC | | | | [address] | | | | | | [phone]. | | | | | | Faisal [...] [facility] | [address] | [place], [place] | | | UNIV PTH - INTFC | | [address] | | + + + + + [...] | + + + + + | [facility] | [address] | [place] [address] | | | HOMERO LAN | LONG [...] | + + + + + | [facility] | [address] | [place] [address] | | | SERVICES, CORE | LONG [...] + | [facility] - | [address] | [place] [address] | | | [place] | | | [...] [facility] | [address] | [place] [address] | | | SERVICES, CORE | PARK [...] | + + + + + | [facility] | [address] | [place] [address] | | | SERVICES, CORE | LONG [...] | + + + + + | [facility] | [address] | [place] [address] | | | SERVICES, CORE | LONG [...] + | [facility] - | [address] | [place] [address] | | | [place] | | | | + + + [...] at: | | | | | | http://www.cdc.gov/nchstp/tb/pubs/tbfactssheets/270989.htm | | | Test performed by: [facility] [address] | | [address] Jaciel.[address] [place] [address] | | + + + + + [...] | + + + + + | [facility] | [address] | [place] [address] | | | SERVICES, SPECIAL | LONG [...] | PROTHROMBIN | No Mutation | | [facility] | | | GENE | | [...] gene at | DIAGNOSTIC | | nucleotide 66956. Please note that this assay only detects the | LABORATORIES | | [id number] point mutation and therefore a normal result [...] has been analyzed for the presence of [id number] | | | mutation in the prothrombin [...] | | Heterozygotes for the common prothrombin [id number] mutation constitute | | | approximately 2% of the normal white population (1,2). | | | References: 1.) Edwinat et al. Blood 88, 3916-5366 (1996). 2.) Ricardo | | | et al. Circulation 99, 999-1004 (1998). 3.) Al Montalvo, and | | | Chase. Amer J Clin Path 155, 439-47 (2000). This test was | | | developed and its performance characteristics determined by the [facility] | | | [facility]. It has | | | not been cleared or approved by the Food and Drug Administration. | | | FDA approval is not required for clinical use of this test, and | | | therefore validation was done as required under the requirements of | | | the Clinical Laboratory Improvement Act of 1988. The [facility] | Diagnostic [facility] is a fully | | | licensed and/or accredited clinical laboratory under CLIA, CAP, and | | | the [facility]. Please note that our lab now [...] + + + | [facility] | [address] | [place] [address] | | | DIAGNOSTIC | [address] [...] | + + + + + | [facility] | [address] | [place] [address] | | | SERVICES, CORE | PARK [...] | + + + + + | [facility] | [address] | [place] [address] | | | SERVICES, CORE | PARK [...] [facility] | [address] | [place] [address] | | | SERVICES, HOMERO | LONG [...] | + + + + + | [facility] | [address] | [place] [address] | | | HOMERO LAN | LONG [...] | | | | | | [place] [address] | | | | | | [phone]. | | | | | | Faisal [...] [facility] | [address] | [place], [place] | | | UNIV PTH - INTFC | | [address] | | + + + + [...] | + + + + + | [facility] | [address] | [place] [address] | | | SERVICES, SPECIAL | PARK [...] + + + + | [facility] | [address] | [place] [address] | | | DIAGNOSTIC | [address] [...] + | [facility] - | [address] | [place] [address] | | | [place] | | | [...] + | [facility] - | [address] | [place] [address] | | | [place] | | | [...] + | [facility] - | [address] | [place] [address] | | | [place] | | | [...] + | [facility] - | [address] | [place] [address] | | | [facility] | | | | + [...] less......Not | | | | | | Lurqbzdk38.0-21.9 | | | | | | U/mL.........Indetermina [...] available | | | | | | atwww.Contact At Once!.WeGush/eb | | | | | | vdx.Performed by [facility] | | | | | | [facility],[address] | | | | | | [place], [place] [address] | | | | | | [phone].aruplab. | | | | | | Faisal [...] [facility] | [address] | [place], [place] | | | UNIV PTH - INTFC | | [address] | | + + + + + [...] + | [facility] - | [address] | [place] [address] | | | [place] | | | | + + + [...] | + + + + + | [facility] | [address] | [place] [address] | | | SERVICES, CORE | PARK [...] by | | | | | | [facility],[address] | | | | | | [place], [facility],[place] | | | | | | [address] | | | | | | [phone].[employer]. | | | | | | Faisal [...] [facility] | [address] | [place], [place] | | | UNIV PTH - INTFC | | [address] | | + + + + + [...] [facility] | [address] | [place] [address] | | | SERVICES, CORE | PARK [...] [facility] | [address] | [place] [address] | | | SERVICES, CORE | PARK [...] [facility] | [address] | [place] [address] | | | HOMERO LAN | LONG [...]
--- OUTSIDE RECORDS SUMMARY | ~2019-03-12 | XMS | Encounter Summary ---
Demographics + + + | Address | [address] | | | [place] [address] | + + + | Home Phone [...] | | | | | [place] [address] | | + + + + + | Thania Mallory | ECON | [address] | | | | | [place] [address] | | + + + + + | Deidra Weldon | ECON | [address] | | | | | [place] | | | | | [address] | | + + + + + Care Team Providers + +------+ + | Care Formulation Technician Name | Role | Phone | [...] | | | | | [address] | [facility] | | | | | [facility], | [place], [place] | | | | | [place] [address] | [address] | | | | | [phone] | | | +--------+ + + + [...] Denise | | | | | | [place] | | | | | | [address] | | | | | | [phone] | | | | | | | | +--------+ + + + + documented as of this encounter Visit Diagnoses Not on filedocumented in this encounter"
--- OUTSIDE RECORDS SUMMARY | ~2019-03-12 | XMS | Encounter Summary ---
Demographics + + + | Address | [address] | | | [place] [address] | + + + | Home Phone [...] | | | | | [place] [address] | | + + + + + | Thania Mallory | ECON | [address] | | | | | [place] [address] | | + + + + + | Deidra Weldon | ECON | [address] | | | | | [place] | | | | | [address] | | + + + + + Care Team Providers + +------+ + | Care Photoflash Powder Mixer Name | Role | Phone [...] | Nephrology at | MD Emanuel [address] | | | | | [place] | [facility] | | | | | [facility] | [place], [place] | | | | | [address] | [address] | | | | | Mailcode: DCH7 | [phone] | | | | | Alexander | | | | | | [place], [place] | | | | | | [address] | | | | | | [phone] | | | +--------+ + + + [...] Ave | | | | | | [place], [place] | | | | | | [address] | | | | | | [phone] | | | | | | | [...]
--- OUTSIDE RECORDS SUMMARY | ~2019-03-12 | XMS | Encounter Summary ---
Demographics + + + | Address | [address] | | | [place] [address] | + + + | Home Phone [...] | | | | | [place] [address] | | + + + + + | Thania Mallory | ECON | [address] | | | | | [place] [address] | | + + + + + | Deidra Weldon | ECON | [address] | | | | | [place] | | | | | [address] | | + + + + + Care Team Providers + +------+ + | Care Galvanizing Pot Runner Name | Role | Phone | [...] | | | | | Caro Chan [place], | | | | | | [place] [address] | | | +--------+ + + + [...] Denise | | | | | | [place], [place] | | | | | | [address] | | | | | | [phone] | | | | | | | [...] LIT FLOW HLA II AB AG ID EAV, BLOOD (06/10/2014 4:54 PM PDT) + + | Specimen | + + | Blood - Blood | + + + + + + + | Performing | Address | City/State/Zipcode | Phone Number | | Organization | | | | + + + + + | [facility] - | [address] | [place] [address] | | | IMMUNOGENETICS/TRANS | [address] | | | | [facility] | | | | + + + + + documented in this encounter Visit Diagnoses + + | Diagnosis | + + | End stage renal disease (HCC) End stage renal disease | + + documented in this encounter"
--- OUTSIDE RECORDS SUMMARY | ~2019-03-12 | XMS | Encounter Summary ---
Demographics + + + | Address | [address] | | | [place] [address] | + + + | Home Phone [...] | | | | | [place] [address] | | + + + + + | Thania Mallory | ECON | [address] | | | | | [place] [address] | | + + + + + | Deidra Weldon | ECON | [address] | | | | | [place] | | | | | [address] | | + + + + + Care Team Providers + +------+ + | Care Grounds Restoration Specialist Name | Role | Phone | [...] lab/Provider | | | | Caro Chan [place], | [place], [place] | updated) | | | | [place] [address] | [address] | | | | | [phone] | [phone] | | | | | | | [...] Denise | | | | | | [place], [place] | | | | | | [address] | | | | | | [phone] | | | | | | | | +--------+ + + + + documented as of this encounter Visit Diagnoses Not on filedocumented in this encounter"
--- OUTSIDE RECORDS SUMMARY | ~2019-03-12 | XMS | Encounter Summary ---
Demographics + + + | Address | [address] | | | [place] [address] | + + + | Home Phone [...] | [facility] | | | and [place]ana | + + + | Organization | [facility] | | [...] Team Providers + +------+ + | Care Hydrotreater Operator Name | Role | Phone | [...] + + | 02/21/ | Telephone | [facility] | Blake Chavarria | Procedure (Question) | | 2013 | | SURGERY [address] | MD Antonieta, FACS [address] | | | | | [place], [place] | [address] [facility] | | | | | [address] | [place] [address] | | | | | [phone] | [phone] | | | | | | | [...] [place] | | | | | | [place] [address] | | | | | | [phone] | | | | | | | | +--------+---------+ + + + documented as of this encounter Visit Diagnoses Not on filedocumented in this encounter"
--- OUTSIDE RECORDS SUMMARY | ~2019-03-12 | XMS | Encounter Summary ---
Demographics + + + | Address | [address] | | | [place] [address] | + + + | Home Phone [...] | | | | | [place] [address] | | + + + + + | Thania Mallory | ECON | [address] | | | | | [place] [address] | | + + + + + | Deidra Weldon | ECON | [address] | | | | | [place] | | | | | [address] | | + + + + + Care Team Providers + +------+ + | Care Podiatrist Orthopedic Name | Role | Phone | + [...] | Family sheet) | | | | [address] | [place] | | | | | Loop Mailcode: | [place], [place] | | | | | [address] | [address] | | | | | [address] | [phone] | | | | | [place], [place] | | | | | | [address] | | | | | | [phone] | | | +--------+ + + + [...] Denise | | | | | | [place] | | | | | | [address] | | | | | | [phone] | | | | | | | | +--------+ + + + + documented as of this encounter Visit Diagnoses Not on filedocumented in this encounter"
--- OUTSIDE RECORDS SUMMARY | ~2019-03-12 | XMS | Encounter Summary ---
Demographics + + + | Address | [address] | | | [place] [address] | + + + | Home Phone [...] + | Author | [facility] | | | and [place] | + + + | Organization | [facility] | | [...] Providers + +------+ + | Care Desktop Support Manager Name | Role | Phone | + +------+ + PCP | Unavailable | + +------+ + Encounter Details +--------+ + + + + | Date | Type | Department | Care Team | Description | +--------+ + + + + | 06/11/ | Hospital | [facility] | | | | 2008 - | Encounter | MED [facility] | | | | | | [address] | | | | 07/03/ | | [place] [address] | | | | 2008 | | [phone] | | | +--------+ + + + [...] | | | | | [place] [address] | | | | | | [phone] | | | | | | | | +--------+---------+ + + + documented as of this encounter Visit Diagnoses Not on filedocumented in this encounter"
--- OUTSIDE RECORDS SUMMARY | ~2019-03-12 | XMS | Encounter Summary ---
Demographics + + + | Address | [address] | | | [place] [address] | + + + | Home Phone [...] | | | | | [place] [address] | | + + + + + | Thania Mallory | ECON | [address] | | | | | [place] [address] | | + + + + + | Deidra Weldon | ECON | [address] | | | | | [place] | | | | | [address] | | + + + + + Care Team Providers + +------+ + | Care Roller Stitcher Name | Role | Phone | [...] to | | | | Caro Chan [place], | [place], [place] | [place] move | | | | [place] [address] | [address] | and new PAF as | | | | [phone] | | listed) | +--------+ + + [...] Denise | | | | | | [place], [place] | | | | | | [address] | | | | | | [phone] | | | | | | | | +--------+ + + + + documented as of this encounter Visit Diagnoses Not on filedocumented in this encounter"
--- OUTSIDE RECORDS SUMMARY | ~2019-03-12 | XMS | Encounter Summary ---
Demographics + + + | Address | [address] | | | [place] [address] | + + + | Home Phone [...] | | | | | [place] [address] | | + + + + + | Thania Mallory | ECON | [address] | | | | | [place] [address] | | + + + + + | Deidra Weldon | ECON | [address] | | | | | [place] | | | | | [address] | | + + + + + Care Team Providers + +------+ + | Care Marketing Lead Name | Role | Phone | [...] | | | | [facility] | [place], [place] | | | | | [address] | [address] | | | | | Mailcode: LEYLA | [phone] | | | | | Alexander | | | | | | [place], [place] | | | | | | [address] | | | | | | [phone] | | | +--------+ + + + [...] Denise | | | | | | [place], [place] | | | | | | [address] | | | | | | [phone] | | | | | | | [...]
--- OUTSIDE RECORDS SUMMARY | ~2019-03-12 | XMS | Encounter Summary ---
Demographics + + + | Address | [address] | | | [place] [address] | + + + | Home Phone [...] + + | Author | [facility] | | | and [place] | + + + | Organization | [facility] [...] Providers + +------+ + | Care Home Security Alarm Installer Name | Role | Phone | [...] NEPHROLOGY [address] | M, DO [address] | | | | | [address] | [place] | | | | | [place], [place] | [place], [place] | | | | | [address] | [address] | | | | | [phone] | | | +--------+ + + + [...] PM PDTManually faxed demographic sheet, copy of Balloon cards, progress note from 04/28/14 and 02/24/14 [...] [place] | | | | | | [place] [address] | | | | | | [phone] | | | | | | | | +--------+---------+ + + + documented as of this encounter Visit Diagnoses Not on filedocumented in this encounter"
--- OUTSIDE RECORDS SUMMARY | ~2019-03-12 | XMS | Encounter Summary ---
Demographics + + + | Address | [address] | | | [place] [address] | + + + | Home Phone [...] | | | | | [place] [address] | | + + + + + | Thania Mallory | ECON | [address] | | | | | [place] [address] | | + + + + + | Deidra Weldon | ECON | [address] | | | | | [place] | | | | | [address] | | + + + + + Care Team Providers + +------+ + | Care Sawmill Supervisor Name | Role | Phone | + +------+ + PCP | Unavailable | + +------+ + Encounter Details +--------+ + + + + | Date | Type | Department | Care Team | Description | +--------+ + + + + | 04/09/ | Abstract | Pediatric | Sudhakar Joy | | | 2013 | | Nephrology at | MD Emanuel [address] | | | | | [place] | [place] | | | | | [facility] | [place], [place] | | | | | [address] | [address] | | | | | Mailcode: DCH7 | [phone] | | | | | Alexander | | | | | | [place], [place] | | | | | | [address] | | | | | | [phone] | | | +--------+ + + + [...] Denise | | | | | | [place], [place] | | | | | | [address] | | | | | | [phone] | | | | | | | | +--------+ + + + + documented as of this encounter Visit Diagnoses Not on filedocumented in this encounter"
--- OUTSIDE RECORDS SUMMARY | ~2019-03-12 | XMS | Encounter Summary ---
Demographics + + + | Address | [address] | | | [place] [address] | + + + | Home Phone [...] Author | [facility] | | | and [place] | + + + | Organization | [facility] | [...] Providers + +------+ + | Care Inspector Dials Name | Role | Phone | + +------+ + | Jonathan Alonso MD | PCP | | + +------+ + Encounter Details +--------+ + + + + | Date | Type | Department | Care Team | Description | +--------+ + + + + | 10/08/ | Orders Only | [facility] | Provider, | Systolic congestive | | 2019 | | SYSTEM GENERIC OP | MD [address] | heart failure (HCC) | | | | CONVERSION [address] | [address] [place] | | | | | [address] [place], [place] | [place] [address] | | | | | [address] | | | | | | [phone] | | | +--------+ + + + [...] DAV[place] | | | | | | [place] [address] | | | | | | [phone] | | | | | | | [...]
--- OUTSIDE RECORDS SUMMARY | ~2019-03-12 | XMS | Encounter Summary ---
Demographics + + + | Address | [address] | | | [place] [address] | + + + | Home Phone [...] | Author | [facility] | | | and Josephana | + + + | Organization | [facility] [...] + +------+ + | Care Fiberglass Boat Parts Finisher Name | Role | Phone | + +------+ + | Jonathan Alonso MD | PCP | | + +------+ + Encounter Details +--------+ + + + + | Date | Type | Department | Care Team | Description | +--------+ + + + + | 10/17/ | Hospital | [facility] | Nikita, | ESRD (end stage | | 2019 - | Encounter | MEDICAL CENTER ACUTE | MD Naresh [address] | renal disease) | | | | CARE FLOOR [address] | ([facility]); Dilated | | 10/22/ | | [address] | [place] [address] | cardiomyopathy | | 2019 | | [place], [place] | [phone] | ([facility]); | | | | [address] | | Non-cardiogenic | | | | [phone] | Gerber Pearson MD | pulmonary edema; | | | | | [address] | Anemia in ESRD | | | | | [place] [address] | (end-stage renal | | | | | [phone] | disease) ([facility] [...] might be different fr om the original. [facility] Service: Hospitalist Physician Discharge Summary Patient [...] is to follow up with her regular negative stripper, Dr. Hurtado. DISCHARGE DIAGNOSES: 1. End-stage renal [...] Left; Surgeon: Blake Chavarria MD ; Location: [facility] MAIN OR AV FISTULA REPAIR Left 03/07/2014 Procedure: AV FISTULA - GRAFT REPAIR/REVISION; Surgeon: Rik Simon MD; Location: [facility] OR; Service: Vascular; Laterality: Left; biopsy of kidney age 10 DIALYSIS FISTULA CREATION 04/08/2014 Procedure: DIALYSIS CATHETER - INSERTION; Surgeon: Rik Simon MD; Location: [facility] OR ; Service: Vascular; Laterality: N/A; tunneled catheter.br hemodialysis catheter KIDNEY BIOPSY Left 2003 OTHER SURGICAL HISTORY LAPAROSCOPIC PERITONEAL DIALYSIS CATHETER INSERTION - x2 OTHER SURGICAL HISTORY Right 07/2013 LAPAROSCOPIC PERITONEAL DIALYSIS CATHETER INSERTION - current dialysis access MWF dialysis OTHER SURGICAL HISTORY Left 06/24/2014 SUPERFICIALIZATION OF AV FISTULA - Procedure: AV FISTULA - SUPERFICIALIZATION; Surgeon: Emanuel Simon MD; Location: [facility] MAIN OR; Service: Vascular; Laterality: Left; OTHER SURGICAL HISTORY Left 04/08/2014 AV FISTULA PLACEMENT - Procedure: AV FISTULA; Surgeon: Rik Simon MD; Location: [facility] OR; Service: Vascular; Laterality: Left; cephalic OTHER SURGICAL HISTORY Left 03/07/2014 DECLOT GRAFT - Procedure: GRAFT - DECLOT; Surgeon: Rik Simon MD; Location: [facility] OR ; Service: Vascular; Laterality: Left; [...] have: Continued coughing Fever Date Last Reviewed: 02/04/201619996170-5380 [employer]. [address] [place] [address], [place] [address]. All righ ts reserved. This information is [...] by your healthcare provider Date Last Reviewed: 12/05/201519996377-5132 [employer]. [address] [place] [address], [place] [address]. All righ ts reserved. This information is [...] + + +---------+ + + | B Sxdryqb-P-Ouzqk | Take 1 tablet by | | [...] I have discussed the case with the NEWS CORRESPONDENT. I agree with his findings & documentation. [...] Carrasco MD - 10/21/2018 3:00 PM PDT [facility] Service: NEPHROLOGY Progress Note Dara Weldon 23 y.o. [id number] female Jonathan Alonso MD Hospital Day: [...] GRAFT REPAIR/REVISION; Surgeon: Rik Simon MD; Location: [facility] IN OR; Service: Vascular; Laterality: Left; biopsy of kidney age 10 DIALYSIS FISTULA CREATION 04/08/2014 Procedure: DIALYSIS CATHETER - INSERTION; Surgeon: Rik Simon MD; Location: [facility] MAIN OR ; Service: [...] SUPERFICIALIZATION; Surgeon: Emanuel Simon MD; Location: [facility] MAIN OR; Service: Vascular; Laterality: Left; OTHER SURGICAL HISTORY Left 04/08/2014 AV FISTULA PLACEMENT - Procedure: AV FISTULA; Surgeon: Rik Simon MD; Location: [facility] OR; Service: Vascular; Laterality: Left; cephalic OTHER SURGICAL HISTORY Left 03/07/2014 DECLOT GRAFT - Procedure: GRAFT - DECLOT; Surgeon: Rik Simon MD; Location: [facility] MAIN OR ; Service: [...] MR, severe TR.severe pulmonary hyperten arturo Chest n-wov-hcjcyncdrvtj with pulmonary edema and large right pleural [...] earlier and charting completed later Dictation software, [employer], used which may contain error for similar sounding words even af ter review. Personal communication requested for any clarification. Portions of my notes may have been carried over for continuity of care.Electronically ananth d by Antonio Benjamin MD at 10/21/2018 3:11 PM Gerber Fernandez MD - 10/21/2018 7:18 AM PD T [facility] Adult Hospitalist Progress Note Hospital Day: [...] BUN 90 on admission -History of a Frederic Schnlein purpura -Last hemodialysis approximately 2 weeks [...] PearsonCamille D - 10/20/2018 9:09 AM PDT [facility] Adult Hospitalist Progress Note Hospital Day: [...] BUN 90 on admission -History of a Frederic Schnlein purpura -Last hemodialysis approximately 2 weeks [...] [address] | | | | | | [place] [address] | | | | | | [phone] | | | | | | | [...] [address], | | | | | | [place] [address] | | | | + + + + + + + + | Specimen | + + | Blood | + + + + + + + | Performing | Address | City/State/Zipcode | Phone Number | | Organization | | | | + + + + + | [facility] | [address] | [place] [address] | [phone] | + + + + + Basic [...] | | | | | performed at [facility], [address] | | | | | | [facility], | | | | | | [place] [address] | | | | + + + [...] + | [facility] | [address] | [place] [address] | [phone] | + + + + + Basic [...] | | | | | performed at [facility], [address] | | | | | | [facility], | | | | | | [place] [address] | | | | + + + [...] + | [facility] | [address] | [place] [address] | [phone] | + + + + + Basic [...] | | | | performed at [facility] | | | | | | [facility];[place], [place] | | | | | | [address] | | | | + + + [...] + | [facility] | [address] | [place] [address] | [phone] | + + + + + documented in this encounter Visit Diagnoses + + | Diagnosis | + + | Non-cardiogenic pulmonary edema - Primary Pulmonary congestion and hypostasis | + + | ESRD (end stage renal disease) ([facility]) End stage renal disease | + + | Dilated cardiomyopathy ([facility]) Other primary cardiomyopathies | + + | Anemia in ESRD (end-stage renal disease) ([facility]) Anemia in chronic kidney disease | + [...] | | | for platelets less than [address], | | + +---+ | | | [...]
--- OUTSIDE RECORDS SUMMARY | ~2019-03-12 | XMS | Encounter Summary ---
Demographics + + + | Address | [address] | | | [place] [address] | + + + | Home Phone [...] | Author | [facility] | | | and Josephana | + + + | Organization | [facility] | | [...] Providers + +------+ + | Care Paper Cutting Machine Operator Name | Role | [...] RN | | | | | [address] [facility] [address] | | | | | | [place] | | | | | | [address] | | | | | | [phone] | | | +--------+ + + + [...] [address] | | | | | | [place] [address] | | | | | | [phone] | | | | | | | | +--------+---------+ + + + documented as of this encounter Visit Diagnoses Not on filedocumented in this encounter"
--- OUTSIDE RECORDS SUMMARY | ~2019-03-12 | XMS | Encounter Summary ---
Demographics + + + | Address | [address] | | | [place] [address] | + + + | Home Phone [...] Team Providers + +------+ + | Care Melt Down Furnace Operator Name | Role | Phone [...] stage renal | [address] | [address] [place] [address] | | | | | disease) | Shun Griffin | [place] | | | | | ([facility]) | [address] | [address] | | | | | Anemia in | [place], [place] | [place] | | | | | ESRD | [address] | [address] Phone: | | | | | (end-stage | Phone: | [phone] | | | | | renal | [phone] | Fax: | | | | | disease) | Fax: | [phone] | | | | | ([facility]) | [phone] | | | | | | Procedures [...] M, DO [address] | renal disease) ([facility]) | | | | [address] | [place], [address] | (Primary Dx); | | | | [place], [place] | [place], [place] | Anemia in ESRD | | | | [address] | [address] | (end-stage renal | | | | [phone] | | disease) ([facility]) | +--------+ + + + [...] rechec k her in 2 weeks. CC: Mcrae Helena Fina Joy MD, [facility], [facility] signed by Jorje Camp DO at 01/20/2015 [...] [address] | | | | | | [place] [address] | | | | | | [phone] | | | | | | | | +--------+---------+ + + + documented as of this encounter Visit Diagnoses + + | Diagnosis | + + | ESRD (end stage renal disease) ([facility]) - Primary End stage renal disease | + + | Anemia in ESRD (end-stage renal disease) ([facility]) Anemia in chronic kidney disease | + + documented in this encounter"
--- OUTSIDE RECORDS SUMMARY | ~2019-03-12 | XMS | Encounter Summary ---
Demographics + + + | Address | [address] | | | [place] [address] | + + + | Home Phone [...] Author | [facility] | | | and Josephana | + + + | Organization | [facility] | [...] Providers + +------+ + | Care Senior Data Warehouse Architect Name | Role | Phone | [...] NEPHROLOGY [address] | M, DO [address] | | | | | [address] | [place] | | | | | [place], [place] | [place], [place] | | | | | [address] | [address] | | | | | [phone] | | | +--------+ + + + [...] in her mid left upper arm 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 In view of this will start her on ASA 81 mg, QD, and Plavix 75 mg, daily for prevention of AVF thrombosis, given the former indwelling stent. She was called by surgical residentElisabeth to begin above. : [facility] [...] [address] | | | | | | [place] [address] | | | | | | [phone] | | | | | | | | +--------+---------+ + + + documented as of this encounter Visit Diagnoses Not on filedocumented in this encounter
--- OUTSIDE RECORDS SUMMARY | ~2019-03-12 | XMS | Encounter Summary ---
Demographics + + + | Address | [address] | | | [place] [address] | + + + | Home Phone [...] | | | | | [place] [address] | | + + + + + | Thania Mallory | ECON | [address] | | | | | [place] [address] | | + + + + + | Deidra Weldon | ECON | [address] | | | | | [place] | | | | | [address] | | + + + + + Care Team Providers + +------+ + | Care Bundle Person Name | Role | Phone | [...] | | [address] | [facility] | | | | | [address] [place], | [place], [place] | | | | | [place] [address] | [address] | | | | | [phone] | | | +--------+ + + + [...] Denise | | | | | | [place], [place] | | | | | | [address] | | | | | | [phone] | | | | | | | | +--------+ + + + + documented as of this encounter Visit Diagnoses Not on filedocumented in this encounter"
--- OUTSIDE RECORDS SUMMARY | ~2019-03-12 | XMS | Encounter Summary ---
Demographics + + + | Address | [address] | | | [place] [address] | + + + | Home Phone [...] Author | [facility] | | | and Josephana | + + + | Organization | [facility] [...] Team Providers + +------+ + | Care Telemarketing Representative Name | Role | Phone | + +------+ + | Tien Nicholson MD | PCP | | + +------+ + Encounter Details +--------+ + + + + | Date | Type | Department | Care Team | Description | +--------+ + + + + | 08/20/ | Hospital | [facility] | Ramón Dunn | Non-cardiogenic | | 2019 - | Encounter | MEDICAL CENTER ACUTE | MD Juan Alberto [address] | pulmonary edema | | | | CARE FLOOR [address] [place], [place] | | | 08/23/ | | [address] | [address] | | | 2019 | | [place], [place] | | | | | | [address] | | | | | | [phone] | | | +--------+ + + + [...] 1300 Date of Service: 08/23/18818 Status: Signed Sow Farm Technician: Paty Kline DO (Physician) Patient: Dara Weldon [...] presented to the emergency d epartment of [facility] in [place] on 08/21 for dyspnea and underwent right t horacentesis with removal of 2.5L of fluid. Patient was sent home after the procedure. Muriel rtly thereafter patient became very short of breath and started having pinkish frothy sputum . Patient also developed right-sided chest pain over area of thoracentesis. She returned t o emergency department of [facility]. Patient was tachycardic and short of b reath but was saturating well on room air. Chest x-ray showed pulmonary edema of right bridgette g but left lung was reportedly normal. Patient was transferred to [facility] for acute hypoxic respiratory failure [...] Nicholson MD [address] [place] [id number] Medication List CHANGE how you take these [...] 08/23/181305 Date of Service: 08/23/181305 Status: Signed Sow Farm Technician: Mitzy Schilling RN (Registered Nurse) Pt A&Ox4, [...] Date of Service: 08/23/18 1144 Status: Signed Sow Farm Technician: Patria Norman RN (Registered Nurse) CM placed call to Pts PCP and they will contact pt to schedule follow up appointment as gopal n as possible. CM placed call to [facility] Pulmonology to attempt to move [...] 08/23/187 Date of Service: 08/23/181136 Status: Signed Sow Farm Technician: Mitzy Schilling RN (Registered Nurse) Resumed care from ABRIL Carranza. Agree with assessments thus far. Will continue to monitor. Mitzy Schilling RN onver arturo Transaction, Provider Unknown - 08/23/2018 2:34 AM PDT Nurse Progress Note by Hannah Madrigal RN at 08/23/184 Author: Hannah Madrigal RN Service: (none) Author Type: Registered Nurse Filed: 08/23/18 0530 Date of Service: 08/23/18233 Status: Signed Sow Farm Technician: Hannah Madrigal RN (Registered Nurse) VSS, pt [...] 08/22/181827 Date of Service: 08/22/181823 Status: Signed Sow Farm Technician: Paco Macedo RN (Registered Nurse) Patient is [...] 08/22/181808 Date of Service: 08/22/181800 Status: Signed Sow Farm Technician: Brent Greenberg () heavy equipment sales manager appreciated. Pt sitting up in bed. [...] find a grief support group in [facility] where she lives. Chp affirmed this as an excellent idea. Chp assured pt of continuing g ood thoughts for pt. Pt thanked p for visit. Chaplain Brent Greenberg pPaty samson DO - 08/22/2018 2:55 PM PDT Progress Notes by Paty Kline DO at 08/22/18 8967 Author: Paty Kline DO Service: Hospitalist Author Type: Physician Filed: 08/22/18 1160 Date of Service: 08/22/18 8531 Status: Addendum Sow Farm Technician: Paty Kline DO (Physician) Related Notes: Original Note by Paty Kline DO (Physician) filed at 08/22/18 9209 [facility] Service: Hospitalist Progress Note Hospital [...] presented to emergency department of [facility] in [place] this morning and underwent right thoracentesis. Patient was sent home after the procedure. However patient became very short of breath and started havi ng pinkish frothy sputum. Patient also developed right-sided chest pain over area of thorac entesis. Hence she returned to emergency department of [facility]. Patient w as tachycardic and short of breath but was saturating well on room air. Chest x-ray showed pulmonary edema of right lung but left lung was normal as per ED physician." Patient was transferred to [facility] for monitoring as she will [...] 08/22/18932 Date of Service: 08/22/18928 Status: Signed Sow Farm Technician: Jessica Martell RN (Registered Nurse) 08/22/18922 Discharge Planning Evaluation Admitting Diagnosis Non-cardiogenic pulmonary edema Readmission No Living Arrangements Alone Support Systems Friends/neighbors;Family members Type of Residence Private residence House type Apartment Bathrooms on 1st Floor 1-Full Independent with ADL's Yes Independent with Mobility Yes Home Care Services No Caregiver after Discharge No Mental Status Oriented Prior functional status independent Power of Wardrobe Consultant No Anticipated Discharge Plan Post Acute Care Needs None at this time Plan communicated to patient/family Yes Resources Financial concerns Comment (needs met but uses food bank and family/neighbors assist) Transportation issues No (friends assist w/transport to HD and appointments) Patient/Family concerns No Prescription Plan Yes Name of Pharmacy [facility] - [place], [place] Previous home health equipment No Vascular [...] concerns and states she uses hemodialysis at [facility] on Mon, Wed, Fri but denies using [...] 08/22/18435 Date of Service: 08/22/18433 Status: Signed Sow Farm Technician: Jaymie Tafoya RN (Registered Nurse) Pt currently [...] 08/21/181831 Date of Service: 08/21/181828 Status: Signed Sow Farm Technician: Luz Pablo RN (Registered Nurse) Complains of rib/upper abdomen pain. Medicated, pain improved. Ambulating in room. HD today , 2.7L off. HD in a.m. At 0600. End of shift review complete. Paty Godinez DO - 08/21/2018 7:24 AM PDT Progress Notes by Paty Kline DO at 08/21/18 0724 Author: Paty Kline DO Service: Hospitalist Author Type: Physician Filed: 08/21/18 6769 Date of Service: 08/21/18723 Status: Signed Sow Farm Technician: Paty Kline DO (Physician) [facility] Service: Hospitalist Progress Note Hospital [...] presented to emergency department of [facility] in [place] this morning and underwent right thoracentesis. Patient was sent home after the procedure. However patient became very short of breath and started havi ng pinkish frothy sputum. Patient also developed right-sided chest pain over area of thorac entesis. Hence she returned to emergency department of [facility]. Patient w as tachycardic and short of breath but was saturating well on room air. Chest x-ray showed pulmonary edema of right lung but left lung was normal as per ED physician." Patient was transferred to [facility] for monitoring as she will [...] Note by Anahy Springer RN at 08/21/18 9293 Author: Anahy Springer RN Service: (none) Author Type: Registered Nurse Filed: 08/21/18 0809 Date of Service: 08/21/18 6880 Status: Addendum Sow Farm Technician: Anahy Springer RN (Registered Nurse) Related Notes: Original Note by Anahy Springer RN (Registered Nurse) filed at 08/21/18 2545 VSS. Pt c/o pain x2, pt medicated [...] 08/20/181901 Date of Service: 08/20/181901 Status: Signed Sow Farm Technician: Kacy Moody RPH (Pharmacist) Clinical Pharmacy Note: [...] [address] | | | | | | [place] [address] | | | | | | [phone] | | | | | | | [...] [facility];[address] | | | | | | [facility];[place], [place] | | | | | | [address] | | | | + + + [...] | Procedure Note | + + | Cerdic, Rad Conversion - 10/16/2018 9:43 PM PDT [...] LAB | | | | performed at [facility], [address] | | | | | | [facility], | | | | | | [place] [address] | | | | | |MACRO | | | | | |Testing performed at [facility], [place] [address] | | | | | | | [...] EXTERNAL | | | | performed at [facility], [address] | | LAB | | | | [address], | | | | | | [place] [address] | | | | + + + [...] EXTERNAL | | | | performed at [facility], [address] | | LAB | | | | [address], | | | | | | [place] [address] | | | | + + + [...] | | | | | | [place] [address] | | | | + + + [...] at [facility] | | LAB | | | | [address];[place], [place] | | | | | | [address] | | | | + + + [...] at [facility];[address] | | | | | | [facility];[place], [place] | | | | | | [address] | | | | + + + [...]
--- OUTSIDE RECORDS SUMMARY | ~2019-03-12 | XMS | Encounter Summary ---
Demographics + + + | Address | [address] | | | [place] [address] | + + + | Home Phone [...] | | | | | [place] [address] | | + + + + + | Thania Mallory | ECON | [address] | | | | | [place] [address] | | + + + + + | Deidra Weldon | ECON | [address] | | | | | [place] | | | | | [address] | | + + + + + Care Team Providers + +------+ + | Care Maintenance Carpenter Name | Role | Phone | [...] Query) | | | | [address] [place], | [place], [place] | | | | | [place] [address] | [address] | | | | | [phone] | [phone] | | | | | | | [...] [place] | | | | | | [address] | | | | | | [phone] | | | | | | | | +--------+ + + + + documented as of this encounter Visit Diagnoses Not on filedocumented in this encounter"
--- OUTSIDE RECORDS SUMMARY | ~2019-03-12 | XMS | Encounter Summary ---
Demographics + + + | Address | [address] | | | [place] [address] | + + + | Home Phone [...] Author | [facility] | | | and [place]ana | + + + | Organization | [facility] | | | [...] Providers + +------+ + | Care Double Bass Player Name | Role | Phone | + +------+ + | Jonathan Alonso MD | PCP | | + +------+ + Encounter Details +--------+ + + + + | Date | Type | Department | Care Team | Description | +--------+ + + + + | 08/13/ | Emergency | [facility] | | | | 2019 | | MEDICAL CENTER | | | | | | EMERGENCY CENTER | | | | | | [address] | | | | | | [place], [place] | | | | | | [address] | | | | | | [phone] | | | +--------+ + + + [...] | | | | | | [place] [address] | | | | | | [phone] | | | | | | | | +--------+---------+ + + + documented as of this encounter Visit Diagnoses Not on filedocumented in this encounter"
--- OUTSIDE RECORDS SUMMARY | ~2019-03-12 | XMS | Encounter Summary ---
Demographics + + + | Address | [address] | | | [place] [address] | + + + | Home Phone [...] Author | [facility] | | | and Josephana | + + + | Organization | [facility] | | [...] Team Providers + +------+ + | Care Hoisting Engineer Name | Role | Phone | + +------+ + PCP | Unavailable | + +------+ + Encounter Details +--------+ + + + + | Date | Type | Department | Care Team | Description | +--------+ + + + + | 10/28/ | Hospital | [facility] | Conversion | ESRD (end stage | | 2015 | Encounter | CENTER CV INTRA OP | Transaction, | renal disease) (HCC) | | | | [address] | Provider Unknown | | | | | [place], [place] | [phone] | | | | | [address] | | | | | | [phone] | Colten Hutchins MD | | | | | | [address] | | | | | | [place], [place] | | | | | | [address] | | | | | | | [...] | | | | | [place] [address] | | | | | | [phone] | | | | | | | [...] COMPARISON STUDIES: 08/21/2014 | | | PRIMARY ENTERPRISE MANAGER: Colten Hutchins MD, PhD, VI OPERATIONS: 1. [...] to the area of stenosis. A 4 [place] | | | sheath was placed. Patient [...] | perianastomotic stenoses. COMPARISON STUDIES: 08/21/2014 PRIMARY ENTERPRISE MANAGER: Colten | | MD Liset, PhD, RPVI [...] to the area of stenosis. A 4 [place] sheath was placed. Patient was | | [...] COMPARISON STUDIES: 08/21/2014 | | | PRIMARY ENTERPRISE MANAGER: Colten Hutchins MD, PhD, [facility] OPERATIONS: 1. | | | Left [...] to the area of stenosis. A 4 [place] | | | sheath was placed. Patient [...] | perianastomotic stenoses. COMPARISON STUDIES: 08/21/2014 PRIMARY ENTERPRISE MANAGER: Colten | | MD Liset, PhD, RPVI [...] to the area of stenosis. A 4 [place] sheath was placed. Patient was | | [...] [facility];[address] | K/uL | LAB | | | | [address];[place], [place] | | | | | | [address] | | | | + + + + + + | RED CELL | 3.88Comment: Testing | 3.70 - 5.10 | EXTERNAL | | | COUNT | performed at [facility];888 | M/uL | LAB | | | | [address];[place] | | | | | | [address] | | | | + + + + + + | Hgb | 14.1Comment: Testing | 11.3 - 15.5 | EXTERNAL | | | | performed at [facility];888 | g/dL | LAB | | | | [address];[place] | | | | | | [address] | | | | + + + + + + | Hematocrit, | 41.4Comment: Testing | 34.0 - 46.0 % | EXTERNAL | | | POC | performed at [facility];[address] | | LAB | | | | [address];[place] | | | | | | [address] | | | | + + + + + + | MCV | 106.7 (H)Comment: | 80.0 - 100.0 fl | EXTERNAL | | | | Testing performed at | | LAB | | | | [facility];[address];[place] [address] | | | | + + + + + + | MCH | 36.4 (H)Comment: Testing | 27.0 - 34.0 pg | EXTERNAL | | | | performed at [facility];[address] | | LAB | | | | [address];[place] | | | | | | [address] | | | | + + + + + + | MCHC | 34.1Comment: Testing | 32.0 - 35.5 | EXTERNAL | | | | performed at [facility];888 | g/dL | LAB | | | | [address];[place] | | | | | | [address] | | | | + + + + + + | RDW-CV | 54.7 (H)Comment: Testing | 37 - 53 fl | EXTERNAL | | | | performed at [facility];[address] | | LAB | | | | [address];[place] | | | | | | [address] | | | | + + + + + + | Platelet | 168Comment: Testing | 150 - 400 K/uL | EXTERNAL | | | Count | performed at [facility];888 | | LAB | | | Plasma | [address];[place] | | | | | | [address] | | | | + + + + + + | MPV | 9.1Comment: Testing | fl | EXTERNAL | | | | performed at [facility];[address] | | LAB | | | | [address];[place] | | | | | | [address] | | | | + + + [...] [facility] | | | | | | [address];[place] | | | | | | [address] | | | | + + + [...] [place] | | | | | | [address] | | | | + + + + + + | K | 3.9Comment: Testing | 3.5 - 4.9 | EXTERNAL | | | | performed at [facility];888 | mmol/L | LAB | | | | [address];[place] | | | | | | [address] | | | | + + + + + + | Cl | 97 (L)Comment: Testing | 99 - 109 mmol/L | EXTERNAL | | | | performed at [facility];888 | | LAB | | | | [address];[place] | | | | | | [address] | | | | + + + + + + | CO2 | 34 (H)Comment: Testing | 23 - 32 mmol/L | EXTERNAL | | | | performed at [facility];[address] | | LAB | | | | [address];[place] | | | | | | [address] | | | | + + + + + + | Anion Gap | 12Comment: Testing | 5 - 20 mmol/L | EXTERNAL | | | | performed at [facility];[address] | | LAB | | | | [address];[place] | | | | | | [address] | | | | + + + + + + | Glucose, | 87Comment: Testing | 65 - 99 mg/dL | EXTERNAL | | | Fasting | performed at [facility];[address] | | LAB | | | | [address];[place] | | | | | | [address] | | | | + + + + + + | BUN | 23Comment: Testing | 8 - 25 mg/dL | EXTERNAL | | | | performed at [facility];[address] | | LAB | | | | [address];[place] | | | | | | [address] | | | | + + + + + + | Creatinine | 6.4 (H)Comment: Testing | 0.50 - 1.00 | EXTERNAL | | | | performed at [facility];888 | mg/dL | LAB | | | | [address];[place] | | | | | | [address] | | | | + + + + + + | BUN/Creatin | 4Comment: Testing | | EXTERNAL | | | ine Ratio | performed at [facility];888 | | LAB | | | | [address];[place] | | | | | | [address] | | | | + + + + + + | Calcium | 9.5Comment: Testing | 8.5 - 10.5 | EXTERNAL | | | | performed at [facility];888 | mg/dL | LAB | | | | [address];[place] | | | | | | [address] | | | | + + + [...] | | | | | | [address];[place], [place] | | | | | | [address] | | | | + + + [...]
--- OUTSIDE RECORDS SUMMARY | ~2019-03-12 | XMS | Encounter Summary ---
Demographics + + + | Address | [address] | | | [place] [address] | + + + | Home Phone [...] | | | | | [place] [address] | | + + + + + | Thania Mallory | ECON | [address] | | | | | [place] [address] | | + + + + + | Deidra Weldon | ECON | [address] | | | | | [place] | | | | | [address] | | + + + + + [...] on | | | | [address] [place], | [place], [place] | [place] | | | | [place] [address] | [address] | care plan) | | | | [phone] | | | +--------+ + + + [...] Denise | | | | | | [place] | | | | | | [address] | | | | | | [phone] | | | | | | | | +--------+ + + + + documented as of this encounter Visit Diagnoses Not on filedocumented in this encounter"
--- OUTSIDE RECORDS SUMMARY | ~2019-03-12 | XMS | Encounter Summary ---
Demographics + + + | Address | [address] | | | [place] [address] | + + + | Home Phone [...] | Author | [facility] | | | and Josephana | + + + | Organization | [facility] | [...] Team Providers + +------+ + | Care Grounding Engineer Name | Role | Phone | [...] | | | | [address]) [address] | [place], [place] | [place], [place] | | | | | stage renal | [address] | [address] Phone: | | | | | disease | Phone: | [phone] | | | | | ([facility]) | [phone] | Fax: | | | | | Infection | Fax: | [phone] | | | | | and | [phone] | | | | | | inflammatory [...] | 10/28/ | Off-Site | [facility] [place] | Jorje Camp | Anemia in ESRD | | 2014 | Visit | NEPHROLOGY [address] | M, DO [address] | (end-stage renal | | | | [address] | [place], [address] | disease) ([facility]) | | | | [place] | [place] | (Primary Dx); ESRD | | | | [address] | [address] | (end stage renal | | | | [phone] | | disease) ([facility]) | [...] matriculating well through her senior year of [employer] and enjoys her school. Outpatient Prescriptions Marked as Taking for the 10/28/13 encounter (Off-Site Visit) with Camille Camp, DO Medication Sig Dispense Refill cholecalciferol (VITAMIN D-3) 1,000 units tablet Take 1,000 Units by mouth Daily. cinacalcet (SENSIPAR) 30 mg tablet Take 30 mg by mouth Daily. [DISCONTINUED] Doxercalciferol (HECTOROL IV) Inject 1 mcg into the vein Three times a w seneca. Epoetin Andres (EPOGEN IJ) 4,400 Units by [...] excellent candidate for a renal allograft. CC: [facility], [facility] documented in thi s encounter Plan [...] [address] | | | | | | [place] [address] | | | | | | [phone] | | | | | | | [...]
--- OUTSIDE RECORDS SUMMARY | ~2019-03-12 | XMS | Encounter Summary ---
Demographics + + + | Address | [address] | | | [place] [address] | + + + | Home Phone [...] | | | | | [place] [address] | | + + + + + | Thania Mallory | ECON | [address] | | | | | [place] [address] | | + + + + + | Deidra Weldon | ECON | [address] | | | | | [place] | | | | | [address] | | + + + + + Care Team Providers + +------+ + | Care Avionics Integration Engineer Name | Role | Phone [...] Shun | | | | | [address] | [facility] | | | | | [place], [place] | [place] [address] | | | | | [address] | [phone] | | | | | | | [...] from patient and her family Pharmacy Preferences: [id number] [place] [address] Updated Outpatient Medications: Current Medication List Name [...] questions regarding this information contact pharmacy, pager #[phone] Thank you, Juan David Batres Pager [phone] signed by Juan David Batres [facility] at [...] Denise | | | | | | [place] | | | | | | [address] | | | | | | [phone] | | | | | | | | +--------+ + + + + documented as of this encounter Visit Diagnoses Not on filedocumented in this encounter"
--- OUTSIDE RECORDS SUMMARY | ~2019-03-12 | XMS | Encounter Summary ---
Demographics + + + | Address | [address] | | | [place] [address] | + + + | Home [...] | | | | | [place] [address] | | + + + + + | Thania Mallory | ECON | [address] | | | | | [place] [address] | | + + + + + | Deidra Weldon | ECON | [address] | | | | | [place] | | | | | [address] | | + + + + + Care Team Providers + +------+ + | Care Social Human Services Assistants Name | Role | Phone | + [...] | | | [address] | [facility] | | | | | [address] [place] [place], | [place], [place] | | | | | [place] [address] | [address] | | | | | [phone] | | | +--------+ + + + [...] Denise | | | | | | [place], [place] | | | | | | [address] | | | | | | [phone] | | | | | | | [...] + + | [facility] | [address] | [place] | [phone] | | [place] | | | | + + + + + documented in this encounter Visit Diagnoses Not on filedocumented in this encounter"
--- OUTSIDE RECORDS SUMMARY | ~2019-03-12 | XMS | Encounter Summary ---
Demographics + + + | Address | [address] | | | [place] [address] | + + + | Home Phone [...] | Author | [facility] | | | and Josephana | + + + | Organization | [facility] | [...] Providers + +------+ + | Care Senior Air Director Name | Role | Phone | [...] | stage renal | [address] | [address] [place] [address] | | | | | disease) | Shun [place] | [place] | | | | | ([facility]) | [address] | [address] [place] | | | | | Anemia in | [place], [place] | [place] | | | | | ESRD | [address] | [address] Phone: | | | | | (end-stage | Phone: | [phone] | | | | | renal | [phone] | Fax: | | | | | disease) | Fax: | [phone] | | | | | ([facility]) | [phone] | | | | | | Procedures [...] | | [address] | [place], [address] | (Primary Dx) | | | | [place], [place] | [place], [place] | | | | | [address] | [address] | | | | | [phone] | | | +--------+ + + + [...] [address]SON | | | | | | [place] [address] | | | | | | [phone] | | | | | | | | +--------+---------+ + + + documented as of this encounter Visit Diagnoses + + | Diagnosis | + + | ESRD (end stage renal disease) (HCC) - Primary End stage renal disease | + + documented in this encounter"
--- OUTSIDE RECORDS SUMMARY | ~2019-03-12 | XMS | Encounter Summary ---
Demographics + + + | Address | [address] | | | [place] [address] | + + + | Home Phone [...] | | | | | [place] [address] | | + + + + + | Thania Mallory | ECON | [address] | | | | | [place] [address] | | + + + + + | Deidra Weldon | ECON | [address] | | | | | [place] | | | | | [address] | | + + + + + Care Team Providers + +------+ + | Care Bracelet Maker Novelty Name | Role | Phone | + [...] Elias Elizondo | | | | | ([facility]) | [address] | [address] [place], | | | | | Allergic | [place], [place] | [place] | | | | | purpura | [address] | [address] | | | | | ([facility]) | Phone: | Phone: | | | | | | [phone] | [phone] | | | | | | Fax: | Fax: | | | | | | [phone] | [phone] | +--------+--------+ + + + + Encounter Details +--------+ + + + + | Date | Type | Department | Care Team | Description | +--------+ + + + + | 12/20/ | Hospital | Radiology at [facility] | | | | 2012 | Encounter | [address] | | | | | | Mailcode: L340 | | | | | | [place] | | | | | | [place], [place] | | | | | | [address] | | | | | | [phone] | | | +--------+ + + + [...] Denise | | | | | | [place], [place] | | | | | | [address] | | | | | | [phone] | | | | | | | [...] | | + +---------+ + + | [facility] DEPARTMENT OF | | | | | RADIOLOGY | | | | + +---------+ + + documented in this encounter Visit Diagnoses + + | Diagnosis | + + | 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
--- OUTSIDE RECORDS SUMMARY | 2019-03-12 22:48 | XMS ---
PreManage Notification: CONOR LOUISE Security Supervisor [employer] Events No recent Security Events currently on file CRITERIA MET - 6 ED Visits in 6 Months - [facility] - Has Care Guidelines - PDMP - [facility] - 2 Visits in 30 Days CARE PROVIDERS TIEN NICHOLSON Internal Medicine 05/28/2018-Current PHONE: Unknown Karena has no Care Guidelines for this patient. Care History Medical/Surgical 11/29/2018 [facility] ED CASE MANAGEMENT CONSULT RECEIVED- CHW PROVIDED TO BASIL- W OF [facility] FOR HIGH RISK FOLLOW UP. 11/07/[address] [facility] [address] Nicholson has not seen Pt since 06/08/2018. 07/12/2018 \R\ Pt canceled appt w/ Dr Nicholson 07/18/2018 \R\ Pt LWOS in [facility] 08/18/2018 \R\ Pt canceled appt w/ Dr Nicholson 09/12/19. \R\ Pt was N/S for appt w/ Dr Nicholson 05/28/2018 [facility] - PATIENT HAS AN APT WITH PCP DR NICHOLSON ON 09/11/18. - PATIENT COAL CAGER- DR HINSON- [phone] - Patient is currently established with [facility]. If patient is seen in the ED during business hours. Please contact CHWs at [facility]. Care Recommendation: This patient has had 5 [...] care. E.D. VISIT COUNT (12 MO.) 7 [facility] 20 [facility] TOTAL 27 NOTE: Visits indicate total known visits. ED/C VISIT TRACKING (12 MO.) 03/12/2019 22:47 [facility] [place] TYPE: Emergency COMPLAINT: - CHEST PAIN/SOB 03/08/2019 02:36 [facility] [place] TYPE: Emergency COMPLAINT: - SOB DIAGNOSES: - Allergy status to narcotic agent status - Allergy status to oth drug/meds/biol subst status - Dependence on renal dialysis - Radiographic dye allergy status - Other tank terminal gauger (current) drug therapy - End stage renal disease - Hyperkalemia - Heart failure, unspecified - Heart failure, unspecified - Shortness of breath 02/17/2019 23:25 [facility] TYPE: Emergency COMPLAINT: - SOB/RASH DIAGNOSES: - Chronic kidney disease, unspecified - Allergy status to oth drug/meds/biol subst status - Allergy status to narcotic agent status - Radiographic dye allergy status - Other tank terminal gauger (current) drug therapy - Cough - Fluid overload, unspecified 01/23/2019 22:10 [facility] TYPE: Emergency DIAGNOSES: - Shortness of breath - Shortness of Breath - Dependence on renal dialysis - End stage renal disease - Pleural effusion, not elsewhere classified 01/07/2019 01:31 [facility] TYPE: Emergency DIAGNOSES: - Dependence on renal dialysis - Hyperkalemia - End stage renal disease - Acute respiratory distress - Hypertension - High Potassium 01/06/2019 19:30 [facility] TYPE: Emergency COMPLAINT: - CHEST PAIN, SOB DIAGNOSES: - Allergy status to narcotic agent status - Other mcc (current) drug therapy - Hyperkalemia - Dyspnea, [...] Pleural effusion, not elsewhere classified 12/10/2018 22:01 [facility] TYPE: Emergency DIAGNOSES: - Personal history of [...] Personal history of nicotine dependence - Other mcc (current) drug therapy 11/28/2018 09:12 [facility] [place] TYPE: Emergency COMPLAINT: - SOB, BLOOD PRESSURE PROBLEM DIAGNOSES: - Allergy status to narcotic agent status - Allergy status to oth drug/meds/biol subst status - Chronic kidney disease, unspecified - Radiographic dye allergy status - Shortness of breath - Pleural effusion, not elsewhere classified - Other mcc (current) drug therapy - Personal history of [...] - Other mcc (current) drug therapy - Heart failure, unspecified - Allergy status to analgesic agent status - Shortness of breath - Hypertensive heart disease with heart failure 11/06/2018 08:24 [facility] [place] TYPE: Emergency COMPLAINT: - CHEST PAIN DIAGNOSES: - Other mcc (current) drug therapy - Allergy status to analgesic agent status - Pleural effusion, not elsewhere classified - Dependence on renal dialysis - Radiographic dye allergy status - Other chest pain - Pericardial effusion (noninflammatory) - Allergy status to narcotic agent status - Acute respiratory failure with hypoxia - Chronic pulmonary edema - Allergy status to oth drug/meds/biol subst status 10/17/2018 03:19 [facility] TYPE: Emergency DIAGNOSES: - Dependence on [...] - Dependence on renal dialysis - Other tank terminal gauger (current) drug therapy - 1 Hypertensive chronic kidney disease w stg 1-4/tariq miranda 08/20/2018 13:08 [facility] [place] TYPE: Emergency COMPLAINT: - CHEST PAIN, SOB DIAGNOSES: - Dependence on renal dialysis - Chronic kidney disease, unspecified - Allergy status to oth drug/meds/biol subst status - Chronic pulmonary edema - Other tank terminal gauger (current) drug therapy - Allergy status to [...] specified abnormalities of plasma proteins - Other mcc (current) drug therapy - Radiographic dye allergy status - Dependence on renal dialysis - Chest pain, unspecified 08/13/2018 00:00 [facility] TYPE: Emergency 07/18/2018 22:44 [facility] TYPE: Emergency DIAGNOSES: - Hypoxemia - Pleural [...] PAIN DIAGNOSES: - Other chest pain - ad terminal makeup operator (current) use of opiate analgesic - Allergy status to oth drug/meds/biol subst status - End stage renal disease - Dependence on renal dialysis - Personal history of nicotine dependence - Fluid overload, unspecified - Radiographic dye allergy status - Heart failure, unspecified - Other mcc (current) drug therapy Plus 7 More Visits INPATIENT VISIT TRACKING (12 MO.) 01/23/2019 22:10 [facility] TYPE: Internal Medicine DIAGNOSES: - Pleural effusion, not elsewhere classified - Oth disorders of plasma-protein metabolism, NEC - End stage renal disease - Shortness of breath - Patient's noncompliance with renal dialysis - Other disorders of phosphorus metabolism - Acute respiratory distress - Patient's noncompliance w oth medical treatment and regimen - Anemia in chronic kidney disease - [facility] personal risk factors, not elsewhere classified - Dependence on renal dialysis 12/10/2018 22:01 [facility] TYPE: Inpatient DIAGNOSES: - Other ascites - Acute respiratory failure with hypoxia - Lobar pneumonia, unspecified organism - Other disorders of phosphorus metabolism - Nonrheumatic tricuspid (valve) insufficiency - Personal history of other diseases of the digestive system - [facility]ox[facility] b[facility]/bld-form org/immun mechnsm - Patient's noncompliance w oth medical treatment and regimen - Awaiting organ transplant status - Hyperkalemia - [facility] personal risk factors, not elsewhere classified [...] hypoxia - Chronic pulmonary edema 11/06/2018 15:10 [facility]: Internal Medicine DIAGNOSES: - Acute respiratory failure with hypoxia - Pleural effusion, not elsewhere classified - Left ventricular failure, unspecified - Anemia in chronic kidney disease - Pulmonary hypertension, unspecified - Pericardial effusion (noninflammatory) - Dependence on renal dialysis - Chronic right heart failure - Patient's noncompliance w [facility] medical treatment and regimen - Chronic combined systolic and diastolic hrt fail - [facility] personal risk factors, not elsewhere classified - Abnormal levels of other serum enzymes - End stage renal disease - Hyperkalemia - Dilated cardiomyopathy 10/17/2018 03:19 [facility] [place] [facility] TYPE: General Medicine DIAGNOSES: - Shortness of breath - Pleural effusion, not elsewhere classified - End stage renal disease - Dependence on renal dialysis 08/20/2018 17:21 [facility] TYPE: General Medicine DIAGNOSES: - Pleural Effusion - Chronic pulmonary edema 07/18/2018 22:44 [facility] [place] [facility] TYPE: General Medicine DIAGNOSES: - Hypoxemia - End stage renal disease - Pulmonary hypertension, unspecified - Chronic right heart failure - Personal history of other diseases of urinary system - Fever, unspecified - Pleural effusion, not elsewhere classified - Anemia in chronic kidney disease - Dependence on renal dialysis 05/26/2018 11:57 [facility] TYPE: General Medicine DIAGNOSES: - [...] Oth personal risk factors, not elsewhere classified [email or web address]
--- NOTE | 2019-03-13 07:44 | EKG ---
[facility] [address] [place], [place] [address] Signed Sinus tachycardia Left axis deviation Abnormal ECG When compared with ECG of 06-JAN-2019 23:24, No significant change was found Confirmed by MONROE WISEMAN MD ([id number]) on 03/13/2019 7:44:30 AM Electronically Signed By: MONROE WISEMAN MD 03/13/19 0744 PATIENT NAME: CONOR LOUISE Electrocardiogram DATE OF : [birth year] PHYSICIAN: MONROE WISEMAN MD REPORT #: [id number] REPORT IS CONFIDENTIAL AND NOT TO BE RELEASED WITHOUT AUTHORIZATION
== END 2019-03-13 00:18 | disposition home or self-care (01) ==
LOC: ED 22:46
DX: J90 Pleural effusion, not elsewhere classified (principal); N18.6 End stage renal disease; Z91.14 Patient's other noncompliance with medication regimen; Z99.2 Dependence on renal dialysis; Z87.891 Personal history of nicotine dependence; Z91.041 Radiographic dye allergy status; Z88.8 Allergy status to other drugs, medicaments and biological substances; Z88.5 Allergy status to narcotic agent; Z79.899 Other long term (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
CPT/HCPCS: 71046; 93005; 93010; 96374; 96375; 99285-25; J2270; J2405

== ENCOUNTER 2019-04-13 18:33 | Emergency (ER) | payer MEDICARE, OTHER ==
[~2019-04-13] VITALS: Ht 170.2 cm; Wt 78.6 kg
--- OUTSIDE RECORDS SUMMARY | 2019-04-13 18:36 | XMS ---
PreManage Notification: CONOR LOUISE Security Dominatrix Events No recent Security Events currently on file CRITERIA MET - 6 ED Visits in 6 Months - [facility] - Has Care Guidelines - History of Sepsis Dx - PDMP CARE PROVIDERS TIEN NICHOLSON Internal Medicine 05/28/2018-Current PHONE: Unknown Karena has no Care Guidelines for this patient. Care History Medical/Surgical 03/13/2019 [facility] Patient has history of anxiety when going through 4 hours of dialysis.\T\nbsp; I asked her if she needed company on next dialysis visit and she said no.\T\ nbsp; Patient stated that she is working with PCP to find best Rx for anxiety. Next scheduled visit with WHITNEY Nicholson is not until 07/16/2019.\T\nbsp; Pt needs to make ED follow up visit. 11/29/2018 [facility] ED CASE MANAGEMENT CONSULT RECEIVED- CHW PROVIDED TO [facility]- [facility] OF CLINIC FOR HIGH RISK FOLLOW UP. 11/07/[address] [facility] [address] Nichloson has not seen Pt since 06/08/2018. 07/12/2018 \R\ Pt canceled appt w/ Dr Nicholson 07/18/2018 \R\ Pt LWOS in [facility] 08/18/2018 \R\ Pt canceled appt w/ Dr Nicholson 09/12/19.19 \R\ Pt was N/S for appt w/ Dr Gavin Aguirre VISIT COUNT (12 MO.) 7 [facility] 21 [facility] [place] TOTAL 28 NOTE: Visits indicate total known visits. ED/UCC VISIT TRACKING (12 MO.) 04/13/2019 18:34 [facility] [place] TYPE: Emergency COMPLAINT: - CHEST PAIN 03/12/2019 22:47 [facility] [place] TYPE: Emergency COMPLAINT: - CHEST PAIN/SOB DIAGNOSES: - Dependence on renal dialysis - Allergy status to narcotic agent status - Other group home (current) drug therapy - Radiographic dye allergy status - Allergy status to oth drug/meds/biol subst status - Chest pain, unspecified - Patient's other noncompliance with medication regimen - Personal history of nicotine dependence - Pleural effusion, not elsewhere classified - End stage renal disease 03/08/2019 02:36 [facility] [place] TYPE: Emergency COMPLAINT: - SOB DIAGNOSES: - Allergy status to narcotic agent status - Allergy status to oth drug/meds/biol subst status - Dependence on renal dialysis - Radiographic dye allergy status - 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 - End stage renal disease - Hyperkalemia - Heart failure, unspecified - Heart failure, unspecified - Shortness of breath 02/17/2019 23:25 [facility] [place] TYPE: Emergency COMPLAINT: - SOB/RASH DIAGNOSES: - Chronic kidney disease, unspecified - Allergy status to oth drug/meds/biol subst status - Allergy status to narcotic agent status - Radiographic dye allergy status - Other group home (current) drug therapy - Cough - Fluid overload, unspecified 01/23/2019 22:10 [facility] TYPE: Emergency DIAGNOSES: - Shortness of breath - Shortness of Breath - Dependence on renal dialysis - End stage renal disease - Pleural effusion, not elsewhere classified 01/07/2019 01:31 [facility] TYPE: Emergency DIAGNOSES: - Dependence on renal dialysis - Hyperkalemia - End stage renal disease - Acute respiratory distress - Hypertension - High Potassium 01/06/2019 19:30 [facility] [place] TYPE: Emergency COMPLAINT: - CHEST PAIN, SOB DIAGNOSES: - Allergy status to narcotic agent status - 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 - Hyperkalemia - Dyspnea, [...] Pleural effusion, not elsewhere classified 12/10/2018 22:01 [facility] TYPE: Emergency DIAGNOSES: - Personal history [...] - Anemia in chronic kidney disease [facility] bld/bld-form org/immun [...] Personal history of nicotine dependence - 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 11/28/2018 09:12 [facility] [place] TYPE: Emergency COMPLAINT: - SOB, BLOOD PRESSURE PROBLEM DIAGNOSES: - Allergy status to narcotic agent status - Allergy status to oth drug/meds/biol subst status - Chronic kidney disease, unspecified - Radiographic dye allergy status - Shortness of breath - Pleural effusion, not elsewhere classified - Other group home (current) drug therapy - Personal history [...] Radiographic dye allergy status - 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 - Heart failure, unspecified - Allergy status to analgesic agent status - Shortness of breath - Hypertensive heart disease with heart failure 11/06/2018 08:24 [facility] [place] TYPE: Emergency COMPLAINT: - CHEST PAIN DIAGNOSES: - Other group home (current) drug therapy [...] to oth drug/meds/biol subst status 10/17/2018 03:19 [facility] [...] - Dependence on renal dialysis - 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 - 1 Hypertensive chronic kidney disease w stg 1-4/tariq miranda 08/20/2018 13:08 [facility] [place] TYPE: Emergency COMPLAINT: - CHEST PAIN, SOB DIAGNOSES: - Dependence on renal dialysis - Chronic kidney disease, unspecified - Allergy status to oth drug/meds/biol subst status - Chronic pulmonary edema - 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 - Allergy status to [...] specified abnormalities of plasma proteins - 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 - Radiographic dye allergy status - Dependence on renal dialysis - Chest pain, unspecified [facility]13/2018 [facility] 07/18/2018 22:44 [facility] status to oth drug/meds/biol subst status Plus 8 More Visits INPATIENT VISIT TRACKING (12 MO.) 01/23/2019 22:10 [facility] TYPE: Internal Medicine DIAGNOSES: - Pleural effusion, not elsewhere classified - Oth disorders of plasma-protein metabolism, NEC - End stage renal disease - Shortness of breath - Patient's noncompliance with renal dialysis - Other disorders of phosphorus metabolism - Acute respiratory distress - Patient's noncompliance w oth medical treatment and regimen - Anemia in chronic kidney disease - Ot personal risk factors, not elsewhere classified - Dependence on renal dialysis 12[facility]10/2018 [facility] [place] [facility]: Inpatient DIAGNOSES: - Other ascites - Acute respiratory failure with hypoxia - Lobar pneumonia, unspecified organism - Other disorders of phosphorus metabolism - Nonrheumatic tricuspid (valve) insufficiency - Personal history of other diseases of the digestive system - Hypoxemia - [facility] history of dis of the bld/bld-form org/immun mechnsm - Patient's noncompliance w oth medical treatment and regimen - Awaiting organ transplant status - Hyperkalemia - Ot personal risk factors, not elsewhere [...] hypoxia - Chronic pulmonary edema 11/06/2018 15:10 [facility] [place] TYPE: Internal Medicine DIAGNOSES: - Acute respiratory failure with hypoxia - Pleural effusion, not elsewhere classified - Left ventricular failure, unspecified - Anemia in chronic kidney disease - Pulmonary hypertension, unspecified - Pericardial effusion (noninflammatory) - Dependence on renal dialysis - Chronic right heart failure - Patient's noncompliance w [facility] medical treatment and regimen - Chronic combined systolic and diastolic hrt fail - [facility] personal risk factors, not elsewhere classified - Abnormal levels of other serum enzymes - End stage renal disease - Hyperkalemia - Dilated cardiomyopathy 10/17/2018 03:19 [facility] TYPE: General Medicine DIAGNOSES: - Shortness of breath - Pleural effusion, not elsewhere classified - End stage renal disease - Dependence on renal dialysis 08/20/2018 17:21 [facility] TYPE: General Medicine DIAGNOSES: - Pleural Effusion - Chronic pulmonary edema 07/18/2018 22:44 [facility] TYPE: General Medicine DIAGNOSES: - Hypoxemia - End stage renal disease - Pulmonary hypertension, unspecified - Chronic right heart failure - Personal history of other diseases of urinary system - Fever, unspecified - Pleural effusion, not elsewhere classified - Anemia in chronic kidney disease - Dependence on renal dialysis 05/26/2018 11:57 [facility] DIAGNOSES: - [...] Oth personal risk factors, not elsewhere classified [email or web address]
--- NOTE | 2019-04-13 23:57 | EKG ---
[facility] [address] [facility] [place] [address] Signed Sinus tachycardia Left axis deviation Nonspecific ST and T wave abnormality Abnormal ECG When compared with ECG of 12-MAR-2019 22:54, No significant change was found Confirmed by MONROE WISEMAN MD ([id number]) on 04/13/2019 11:57:08 PM Electronically Signed By: MONROE WISEMAN MD 04/13/19 2357 PATIENT NAME: CONOR LOUISE Electrocardiogram DATE OF : [birth year] PHYSICIAN: MONROE WISEMAN MD REPORT #: [id number] REPORT IS CONFIDENTIAL AND NOT TO BE RELEASED WITHOUT AUTHORIZATION
== END 2019-04-13 21:05 | disposition home or self-care (01) ==
LOC: ED 18:33
DX: I50.9 Heart failure, unspecified (principal); G89.29 Other chronic pain; J90 Pleural effusion, not elsewhere classified; Z99.2 Dependence on renal dialysis; Z91.15 Patient's noncompliance with renal dialysis; Z88.8 Allergy status to other drugs, medicaments and biological substances; Z88.5 Allergy status to narcotic agent; Z91.041 Radiographic dye allergy status; Z79.899 Other long term (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
CPT/HCPCS: 71045; 80053; 83735; 84484; 85025; 93005; 93010; 96374; 99285-25; J2405

== ENCOUNTER 2019-07-14 10:35 | Emergency (ER) | payer MEDICARE, OTHER ==
[~2019-07-14] VITALS: Ht 170.2 cm; Wt 80.3 kg
--- OUTSIDE RECORDS SUMMARY | ~2019-07-14 | XMS | Encounter Summary ---
Demographics + + + | Address | [address] | | | [place] [address] | + + + | Home Phone | | + + + | Preferred Language | Unknown | + + + | Marital Status | Single | + + + | Latter Day Affiliation | Unknown | + + + [...] | | | | | [place] [address] | | + + + + + | Thania Mallory | ECON | [address] | | | | | [place] [address] | | + + + + + | Deidra Weldon | ECON | [address] | | | | | [place] | | | | | [address] | | + + + + + Care Team Providers + +------+ + | Care Loss Control Manager Name | Role | Phone | + +------+ + | No Pcp Per Patient | PCP | Unavailable | + +------+ + Reason for Visit +--------+ + | Reason | Comments | +--------+ + | Other | Transplant recommendations | +--------+ + Encounter Details +--------+ + + + + | Date | Type | Department | Care Team | Description | +--------+ + + + + | 10/16/ | Telephone | Clinical | Kelsi Martinez, | Other (Transplant | | 2013 | | Transplant Services | RN [address] | recommendations) | | | | [address] | [facility] | | | | | [address] [place], | [place], [place] | | | | | [place] [address] | [address] | | | | | [phone] | | | +--------+ + + + [...] on file | | + + + + + + + | Job Start Date | Occupation | Industry | + + + + | Not on file | Not on file | Not on file | + + + + + + + + | Travel History | Travel Start | Travel End | + + + + + + | No recent travel history available. | + + documented as of this encounter Plan of Treatment +--------+ + + + + | Date | Type | Specialty | Care Team | Description | +--------+ + + + + | 05/04/ | Hospital | Adult Acute Care | El Starr MD | | | 2022 | Encounter | | [address] | | | | | | [place] | | | | | | [address] | | | | | | [phone] | | | | | | | | +--------+ + + + + documented as of this encounter Visit Diagnoses Not on filedocumented in this encounter"
--- OUTSIDE RECORDS SUMMARY | ~2019-07-14 | XMS | Encounter Summary ---
Demographics + + + | Address | [address] | | | [place] [address] | + + + | Home Phone [...] + + | Author | [facility] | + + + | Organization | [facility] | + + + | Address | Unknown | + + + | Phone | Unavailable | + + + Support + + + + + | Name | Relationship | Address | Phone | + + + + + | Cory Weldon | ECON | [address] | | | | | [place] [address] | | + + + + + | Thania Mallory | ECON | [address] | | | | | [place] [address] | | + + + + + | Deidra Weldon | ECON | [address] | | | | | [place] | | | | | [address] | | + + + + + Care Team Providers + +------+ + | Care Account Executive Name | Role | Phone | + [...] on | | | | [address] [place], | [place], [place] | [place] | | | | [place] [address] | [address] | care plan) | | | | [phone] | | | +--------+ + + + [...] [address] | | | | | | [place] | | | | | | [address] | | | | | | [phone] | | | | | | | | +--------+ + + + + documented as of this encounter Visit Diagnoses Not on filedocumented in this encounter"
--- OUTSIDE RECORDS SUMMARY | ~2019-07-14 | XMS | Encounter Summary ---
Demographics + + + | Address | [address] | | | [place] [address] | + + + | Home Phone [...] | | | | | [place] [address] | | + + + + + | Thania Mallory | ECON | [address] | | | | | [place] [address] | | + + + + + | Deidra Weldon | ECON | [address] | | | | | [place] | | | | | [address] | | + + + + + Care Team Providers + +------+ + | Care Coke Loader Name | Role | Phone | + [...] | | | | [address] | [address] | | | | | | [place] | floor | | | | | | [place], | [place], [place] | | | | | | [place] | [address] | | | | | | [address] | Phone: | | | | | | Phone: | [phone] | | | | | | [phone] | | | | | | | Fax: | | | | | | | [phone] | | +--------+--------+ + + + + Encounter Details +--------+---------+ + + + | Date | Type | Department | Care Team | Description | +--------+---------+ + + + | 05/24/ | Office | Specialty Clinics | Sudhakar Joy | [facility] | | 2017 | Visit | at [facility] [address] | DMD [address] | (David | | | | [address] | [address] | purpura) nephritis | | | | [place] | [place], [place] | (Primary Dx); Anemia | | | | [facility], | [address] | of chronic kidney | | | | 7th floor | [phone] | failure, stage 5 | | | | [place], [place] | | ([facility]) | | | | [address] | | | | | | [phone] | | | +--------+---------+ + + + [...] and her mother, confirmed pt vikki pratt toya pt identifier (name and ). Discussed with [...] not be referred for transplant. Her adult hooker up could refer her to adult transplant when [...] MD [facility] [address] Mail code [facility] [place], [place] [id number] documented in this encounter Plan of Treatment +--------+ + + + + | Date | Type | Specialty | Care Team | Description | +--------+ + + + + | 05/04/ | Hospital | Adult Acute Care | El Starr MD | | | 2022 | Encounter | | [address] | | | | | | [place], [place] | | | | | | [address] | | | | | | [phone] | | | | | | | [...]
--- OUTSIDE RECORDS SUMMARY | ~2019-07-14 | XMS | Encounter Summary ---
Demographics + + + | Address | [address] | | | [place] [address] | + + + | Home Phone [...] | | | | | [place] [address] | | + + + + + | Thania Mallory | ECON | [address] | | | | | [place] [address] | | + + + + + | Deidra Weldon | ECON | [address] | | | | | [place] | | | | | [address] | | + + + + + Care Team Providers + +------+ + | Care Personal Care Home Administrator Name | Role | Phone | + +------+ + PCP | Unavailable | + +------+ + Reason for Visit +--------+ + | Reason | Comments | +--------+ + | Other | Transplant Committee recommendations | +--------+ + Encounter Details +--------+ + + + + | Date | Type | Department | Care Team | Description | +--------+ + + + + | 02/21/ | Telephone | Clinical | Kelsi Martinez, | Other (Transplant | | 2012 | | Transplant Services | RN [address] | Committee | | | | [address] | [facility] | recommendations) | | | | [address] [place], | [place], [place] | | | | | [place] [address] | [address] | | | | | [phone] | | | +--------+ + + + [...] [address] | | | | | | [place] | | | | | | [address] | | | | | | [phone] | | | | | | | | +--------+ + + + + documented as of this encounter Visit Diagnoses Not on filedocumented in this encounter"
--- OUTSIDE RECORDS SUMMARY | ~2019-07-14 | XMS | Encounter Summary ---
Demographics + + + | Address | [address] | | | [place] [address] | + + + | Home Phone | | + + + | Preferred Language | Unknown | + + + | Marital Status | Single | + + + | Latter-Day Affiliation | Unknown | + + + | Race | Unknown | + + + | Ethnic Group | Unknown | + + + Author + + + | Author | [facility] | | | and [place] | + + + | Organization | [facility] [...] Team Providers + +------+ + | Care Press And Blow Machine Tender Name | Role | Phone | + +------+ + | Jonathan Alonso MD | PCP | | + +------+ + Reason for Visit + + + | Reason | Comments | + + + | Appointment | Appointment with PCP needed | + + + Encounter Details +--------+ + + + + | Date | Type | Department | Care Team | Description | +--------+ + + + + | 12/17/ | Telephone | [facility] | Ryan, | Appointment | | 2019 | | CENTER CASE | Irish Obrien CMA | (Appointment with | | | | MANAGEMENT [address] | | PCP needed) | | | | [address] | | | | | | [place], [place] | | | | | | [address] | | | | | | [phone] | | | +--------+ + + + [...] + + documented as of this encounter Functional Status + + + + | Functional Status | Response | Date of Assessment | + + + + | Are you deaf or do you have serious | No | 12/14/2018 | | difficulty hearing? | | | + + + + | Are you blind or do you have serious | No | 12/14/2018 | | difficulty seeing, even when wearing | | | | glasses? | | | + + + + | Do you have serious difficulty walking or | No | 12/14/2018 | | climbing stairs? (5 years old or older) | | | + + + + | Do you have difficulty dressing or bathing? | No | 12/14/2018 | | (5 years old or older) | | | + + + + | Because of a physical, mental, or emotional | No | 12/14/2018 | | condition, do you have difficulty doing | | | | errands alone such as visiting a doctor's | | | | office or shopping? [15 years old or | | | | older)] | | | + + + + + + + + | Cognitive Status | Response | Date of Assessment | + + + + | Because of a physical, mental, or emotional | No | 12/14/2018 | | condition, do you have serious difficulty | | | | concentrating, remembering, or making | | | | decisions? (5 years old or older) | | | + + + + documented as of this encounter Plan of Treatment Not on filedocumented as of this encounter Visit Diagnoses Not on filedocumented in this encounter"
--- OUTSIDE RECORDS SUMMARY | ~2019-07-14 | XMS | Encounter Summary ---
Demographics + + + | Address | [address] | | | [place] [address] | + + + | Home Phone [...] | | | | | [place] [address] | | + + + + + | Thania Mallory | ECON | [address] | | | | | [place] [address] | | + + + + + | Deidra Weldon | ECON | [address] | | | | | [place] | | | | | [address] | | + + + + + Care Team Providers + +------+ + | Care Risk Management Analyst Name | Role | Phone | [...] | [address] | [facility] | | | | | [place], | [place], [place] | | | | | [place] [address] | [address] | | | | | [phone] | | | +--------+ + + + [...] [address]ise | | | | | | [place] | | | | | | [address] | | | | | | [phone] | | | | | | | | +--------+ + + + + documented as of this encounter Visit Diagnoses Not on filedocumented in this encounter"
--- OUTSIDE RECORDS SUMMARY | ~2019-07-14 | XMS | Encounter Summary ---
Demographics + + + | Address | [address] | | | [place] [address] | + + + | Home Phone [...] Author + + + | Author | [facility] | | | and Josephana | + + + | Organization | [facility] | | | and Josephana [...] Team Providers + +------+ + | Care Clarifying Plant Operator Name | Role | Phone | + +------+ + | Jonathan Alonso MD | PCP | | + +------+ + Encounter Details +--------+ + + + + | Date | Type | Department | Care Team | Description | +--------+ + + + + | 10/17/ | Hospital | [facility] | Nikita, | ESRD (end stage | | 2019 - | Encounter | [facility] | MD Naresh [address] | renal disease) | | | | CARE FLOOR [phone] | ([facility]); Dilated | | 10/22/ | | [address] | [place] [address] | cardiomyopathy | | 2019 | | [place], [place] | [phone] | ([facility]); | | | | [address] | | Non-cardiogenic | | | | [phone] | Gerber Pearson MD | pulmonary edema; | | | | | [address] | Anemia in ESRD | | | | | [place] [address] | (end-stage renal | | | | | [phone] | disease) ([facility]); | | | | | | Hyperphosphatemia; | | | | | | Hypertension, | | | | | | unspecified type; | | | | | | Hypervolemia, | | | | | | unspecified | | | | | | hypervolemia type; | | | | | | Acute hypoxemic | | | | | | respiratory failure | | | | | | ([facility]); At high risk | | | | | | for electrolyte | | | | | | imbalance; | | | | | | Non-compliance; | | | | | | Hypoalbuminemia | +--------+ + + + + Social [...] + + + | Blood Pressure | 109/56 | 10/22/2018 4:50 PM | | | | | PDT | | + + + + + | Pulse | 82 | 10/22/2018 4:50 PM | | | | | PDT | | + + + + + | Temperature | 36.4 C (97.5 F) | 10/22/2018 4:50 PM | | | | | PDT | | + + + + + | Respiratory Rate | 16 | 10/22/2018 4:50 PM | | | | | PDT | | + + + + + | Oxygen Saturation | 94% | 10/22/2018 4:50 PM | | | | | PDT | | + + + + + | Inhaled Oxygen | - | - | | | Concentration | | | | + + + + + | Weight | 64.2 kg (141 lb 8.6 | 10/21/2018 4:10 AM | | | | oz) | PDT | | + + + + + | Height | 170.2 cm (5' 7.01") | 10/19/2018 7:30 AM | | | | | PDT | | + + + + + | Body Mass Index | 22.17 | 10/19/2018 11:12 PM | | | | | PDT | | + + + + + documented in this encounter Discharge Summaries Gerber Pearson MD - 10/22/2018 7:22 AM PDTFormatting of this note might be different fr om the original. [facility] Service: Hospitalist Physician Discharge Summary Patient ID: Dara Weldon 1995 23 y.o. Admit date: 10/17/2018 Discharge date and time: No discharge date for patient encounter. Admitting Physician: Naresh Shelton MD Discharge Physician: Gerber Pearson MD Consultants: Treatment Team: Antonio Benjamin MD Primary Discharge Diagnoses: Shortness of breath [R06.02] Pleural effusion, not elsewhere classified [J90] HPI and Hospital Course: A 23-year-old female with a history of end-stage renal disease, on hemodialysis, she unfort unately has a history of poor compliance with hemodialysis, history of Henoch-Schonlein purp ura. She also has a history of combined systolic/diastolic congestive heart failure with a recent echocardiogram in 07/2018, EF 30-35 percent, severe diastolic dysfunction, grade 3, t ricuspid valve regurgitation, severe hypertension. She also has a history of recurrent ple ural effusions, has required recurrent thoracenteses. Of note, 08/2018, she was admitted fo r noncardiogenic pulmonary edema due to a reexpansion lung injury after undergoing a thorace ntesis. She indicates that she has been noncompliant with her hemodialysis for 2 weeks and with her medications. She presented to the emergency department on 10/17/2018 with progressive dysp belén, lower extremity edema. She was noted to be significantly volume overloaded, serum crea tinine was 14, BUN was 89, potassium was 5.5. Chest x-ray showed cardiomegaly with pulmonary edema and again right large pleural effusion . She required emergent hemodialysis and subsequently hemodialysis on a daily basis. She the n underwent a successful thoracentesis with 1.5 L of fluid removed on the right lung. Pleur al effusion was due to volume overload and underlying congestive heart failure. She received hemodialysis daily. On the day of discharge, she was much improved. Oxygen r equirements were stable at room air. She was subsequently discharged home. Strongly encouraged to be compliant with hemodialysi s. She also is to follow up with her regular fire equipment inspector, Dr. Hurtado. DISCHARGE DIAGNOSES: 1. End-stage renal disease, on hemodialysis with volume overload. 2. Volume overload due to noncompliance with hemodialysis. 3. Acute on chronic combined systolic/diastolic congestive heart failure. 4. Recurrent pleural effusion secondary to volume overload from end-stage renal disease an d acute on chronic congestive heart failure. 5. Acute hypoxic respiratory failure secondary to volume overload and pleural effusion. 6. Noncompliance. Medication refills given Past Medical History: Past Medical History: Diagnosis Date Asthma Clotted dialysis access (HCC) 2014 Congestive heart failure (HCC) ESRD (end stage renal disease) (HCC) ESRD (end stage renal disease) (HCC) HSP (Henoch-Schonlein purpura) nephritis (HCC) 1987 HSP (Henoch-Schonlein purpura) nephritis (HCC) Hypertension Past Surgical History: Procedure Laterality Date ABDOMEN SURGERY AV FISTULA REPAIR 02/24/2014 LEFT Radical Cephalic Fistula Creation; Laterality: Left; Surgeon: Blake Chavarria MD ; Location: [facility] OR AV FISTULA REPAIR Left 03/07/2014 Procedure: AV FISTULA - GRAFT REPAIR/REVISION; Surgeon: Rik Simon MD; Location: [facility] OR; Service: Vascular; Laterality: Left; biopsy of kidney age 10 DIALYSIS FISTULA CREATION 04/08/2014 Procedure: DIALYSIS CATHETER - INSERTION; Surgeon: Rik Simon MD; Location: [facility] OR ; Service: Vascular; Laterality: N/A; tunneled catheter.br hemodialysis catheter KIDNEY BIOPSY Left 2003 OTHER SURGICAL HISTORY LAPAROSCOPIC PERITONEAL DIALYSIS CATHETER INSERTION - x2 OTHER SURGICAL HISTORY Right 07/2013 LAPAROSCOPIC PERITONEAL DIALYSIS CATHETER INSERTION - current dialysis access MWF dialysis OTHER SURGICAL HISTORY Left 06/24/2014 SUPERFICIALIZATION OF AV FISTULA - Procedure: AV FISTULA - SUPERFICIALIZATION; Surgeon: Emanuel Simon MD; Location: [facility] OR; Service: Vascular; Laterality: Left; OTHER SURGICAL HISTORY Left 04/08/2014 AV FISTULA PLACEMENT - Procedure: AV FISTULA; Surgeon: Rik Simon MD; Location: [facility] OR; Service: Vascular; Laterality: Left; cephalic OTHER SURGICAL HISTORY Left 03/07/2014 DECLOT GRAFT - Procedure: GRAFT - DECLOT; Surgeon: Rik Simon MD; Location: [facility] OR ; Service: Vascular; Laterality: Left; peritoneal catheter Discharged Condition: Stable for discharge as stated above. Significant Diagnostic Studies: No results found. Discharge Vitals: Vitals: 10/22/18 1615 10/22/18 1630 10/22/18 1646 10/22/18 1650 BP: 113/67 105/56 109/58 109/56 Pulse: 71 68 71 82 Resp: 16 Temp: 36.4 C (97.5 F) TempSrc: Oral SpO2: 94% Weight: Height: Discharge Exam: Physical Exam Constitutional: Awake alert no acute distress looks well 96% on room air Cardiovascular: Normal rate. Pulmonary/Chest: Effort normal. Abdominal: Soft. Psychiatric: She has a normal mood and affect. Her behavior is normal. Nursing note and vitals reviewed. LABS: Recent Results (from the past 24 hour(s)) Basic Metabolic Panel Result Value Ref Range Na 140 135 - 145 mmol/L K 4.1 3.5 - 4.9 mmol/L Cl 102 99 - 109 mmol/L CO2 28 23 - 32 mmol/L Anion Gap 14 5 - 20 mmol/L Glucose 83 65 - 99 mg/dL BUN 28 (H) 8 - 25 mg/dL Creatinine 7.3 (H) 0.50 - 1.00 mg/dL BUN/Creatinine Ratio 4 Ca 9.4 8.5 - 10.5 mg/dL Estimated GFR 7 (L) >60 mL/min/1.73m2 CBC no Differential Result Value Ref Range WBC 5.23 3.80 - 11.00 K/uL RBC 3.29 (L) 3.70 - 5.10 M/uL Hemoglobin 12.0 11.3 - 15.5 g/dL Hematocrit 35.4 34.0 - 46.0 % MCV 107.5 (H) 80.0 - 100.0 fl MCH 36.4 (H) 27.0 - 34.0 pg MCHC 33.9 32.0 - 35.5 g/dL RDW-SD 54.3 (H) 37 - 53 fl Platelet Count 156 150 - 400 K/uL MPV 10.4 fl Disposition: Home or Self Care Patient Instructions: No notes on file No follow-ups on file. Signed: Gerber Pearson MD 10/22/2018 17:11 Discharge took more than 35 minutes, to include final examination, discussion of admission, and preparation of prescriptions, instructions for ongoing care, follow up and dictation of summary. documented i n this encounter Discharge Instructions Instructions Nereida Coburn RN - 10/22/2018Formatting of this note might be different fro m the original. Pleural Effusion Pleural effusion is fluid buildup between the layers of tissue that line the outside of the lungs. Your healthcare provider has told you that you have pleural effusion. Pleural effusion mean s that you have extra fluid between the pleura. This area is called the pleural space. The p leura are 2 layers of thin, smooth tissue that surround the lungs and line the chest. The pl eural space usually holds only a small amount of fluid. This fluid lubricates the pleura. Bu t if too much fluid fills the space, it can make it hard or painful to breathe. There are 2 types of pleural effusion: Inflammatory. This is caused by a lung disease like pneumonia or lung cancer, both of wh ich irritates the pleura. Noninflammatory. This is caused by abnormal fluid pressures inside the lungs. The pressu re can be caused by congestive heart failure (CHF). In CHF, extra fluid collects inside the lung tissues because of a weak heart muscle. This extra fluid then leaks into the pleural sp [place]. Other causes of noninflammatory pleural effusions include kidney disease, liver disease , and malnutrition. What are the symptoms of pleural effusion? The symptoms of pleural effusion include: Sharp pains in the chest, especially when taking a breath, coughing, or sneezing Trouble breathing Cough Fever What are the causes of pleural effusion? Common causes include: Congestive heart failure Cirrhosis of the liver Pneumonia Viral lung infection Cancer Blood clot in the lung (pulmonary embolism) Heart surgery Chest infections likepneumonia and heart disease are the most common causes. Less common causes include lung cancer. Howis pleural effusion diagnosed? Your healthcare provider will examine you and ask about your health history. Tests include: Blood tests Analysis of fluid in pleural space, chest X-ray, CT scan, or ultrasound How is pleural effusion treated? The extra fluid may be drained from the pleural space. This is done with a procedure called thoracentesis. This procedure uses a thin needle to draw out the fluid from the pleural spa ce. In some cases, a tube is placed in the chest to drain the extra fluid. The tube will lik fredi stay in place for several days. You may have other treatments, depending on the cause of your pleural effusion. If it s b ecause of a bacterial infection, you will be given antibiotics tofight the infection.If it s because ofa heart condition, you will be given medicines and other treatmentfor y our heart. Your healthcare provider can tell you more about the cause of your pleural effusi on and your treatment choices. What are the long-term concerns? If untreated, pleural effusion can lead to serious health problems, such as collapsed lung from fluid filling the pleural space. Call 911 Call 911 if you have: Trouble breathing Worsening chest pain When to call your healthcare provider Call your healthcare provider right away if you have: Continued coughing Fever Date Last Reviewed: 02/04/201619998521-9777 [employer]. [address] [place] [address], [place] [address]. All righ ts reserved. This information is not intended as a substitute for professional medical care. Always follow your healthcare professional's instructions. Hemodialysis The job of the kidneys is to remove waste and extra water from the body.The kidneys also balance levels of minerals in the body, called electrolytes. Kidneys are essential for the h ealth of the body. People with severe kidney disease are not able to perform these functions .This may be due to a temporary or a permanent kidney condition. Hemodialysis is a treatme nt that takes over the essential functions of the kidney until you recover from kidney disea se, or get a kidney transplant.If you have end stage renal disease and are not eligible fo r a transplant, you will need to have hemodialysis for the rest of your life. Peritoneal cole lysis is another type of dialysis but is not covered in this article. Hemodialysis requires access to a strong blood flow. There are 3 ways to do this. Dialysis catheter. This is a plastic tube put into a large blood vessel, usually for tem porary access. If there is no other option, it may be used permanently. AV fistula. Through a minor surgical procedure, an artery in your arm is joined directly to a vein. This creates an arteriovenous fistula or AV fistula. The pressure of the arteria l blood flow slowly expands the size of the attached vein. It may take up to 4 to 6 weeks fo r the fistula to enlarge enough to be ready for dialysis. The AV fistula is the access of ch oice. This is because there are typically fewer problems and side effects. It also lasts emilee williams than the other options. AV graft.This is an artificial implant that joins an artery and vein in people with sm all veins. It can also be usedwhen an AV fistula did not work. It can be used for dialysis a few weeks after the surgery. A connecting tube carries blood from the access point in the body to the dialysis machine w here special filters called dialyzers filter and process the blood. The blood is then return ed to the body through a separate tube and needle. This takes 3 to 4 hours and is usually do ne 3 times a week. Home dialysis is an option for some patients. Hemodialysis is lifesaving for people with kidney failure, but there are possible side effe cts. These include infection, low blood pressure, bleeding, electrolyte imbalance, anemia, a nd heart disease. Home care The following guidelines will help you care for yourself at home: Take any medicines as directed. Follow the special diet for kidney failure that your healthcare provider gave you. Don t wear any clothing or jewelry that could put pressure on the access site. Don t lie on the access site while sleeping. If the access is in your arm, have blood pressure readings and blood samples taken from the other arm. Check the access site after dialysis for swelling, bleeding, or signs of infection. If you have an AV fistula or graft, check the site regularly to be sure you can always f eel the vibration (called the thrill ) of blood flowing from artery to vein.Don t put lotions or other products on the access site. If you have an external dialysis catheter, avoid physical activities that could pull on the catheter. Follow-up care Follow up with your healthcare provider, or as advised. Call 911 Call 911 if any of these occur: External catheter starts bleeding or opens to air Severe weakness, dizziness, fainting, drowsiness, or confusion Chest pain or shortness of breath When to seek medical advice Call your healthcare provider right away if any of these occur: Color of the blood in the external tubing changes from bright red to dark red You don t feel the thrill (vibration) in an AV fistula or graft Nausea or vomiting Unexpected weight gain or swelling in the legs, ankles, or around the eyes Decreased or absent urine output if you previously made urine Fever of 100.4F (38C) or higher, or as directed by your healthcare provider Date Last Reviewed: 12/05/[id number] [employer]. [address] [place] [address], [place] [address]. All righ ts reserved. This information is not intended as a substitute for professional medical care. Always follow your healthcare professional's instructions. documented in this encounter Medications at Time of Discharge + + + +---------+ + + | Medication | Sig | Dispensed | Refills | Start | End Date | | | | | | Date | | + + + +---------+ + + | clopidogrel | Take 1 tablet by | 30 | 4 | 10/24/19 | | | (PLAVIX) 75 mg | mouth Daily. | tablet | | 19 | | | tablet | | | | | | + + + +---------+ + + | doxercalciferol | Inject 0.5 mLs into | | 0 | 02/27/20 | | | (HECTOROL) 2 mcg/mL | the vein Three times | | | 18 | | | injectionIndications | a week. Per | | | | | | : ESRD (end stage | dialysis clinic | | | | | | renal disease) ([facility]) | protocol | | | | | + + + +---------+ + + | epoetin jenna | Inject 0.4 mLs | | 0 | 04/30/20 | | | (EPOGEN) 20,000 | (8,000 [...] 2.5 mLs into | | 0 | //20 | | | (VENOFER) 20 mg/mL | the vein Once a | | | 15 | | | injection | week. | | | | | + + + +---------+ + + | ondansetron | Take 4 mg by mouth 3 | | 0 | | | | (ZOFRAN) 4 mg tablet | (three) times daily | | | | | | | as needed for | | | | | | | Nausea. | | | | | + + + +---------+ + + | pantoprazole | Take 40 mg by mouth | | 0 | | | | (PROTONIX) 40 mg | every morning before | | | | | | tablet | breakfast. | | | | | + + + +---------+ + + | albuterol 90 | Inhale 2 puffs into | 1 | 2 | 10/23/19 | | | mcg/puff inhaler | the lungs every 6 | Inhaler | | 19 | 9 | | | hours as [...] + + + +---------+ + + | | Take 3 mLs by | | 0 | | | | albuterol-ipratropiu | nebulization. | | | | 0 | | m 2.5-0.5 mg/3 mL | | | | | | | SOLN | | | | | | + + + +---------+ + + | B Ojyxlrm-A-Iybzz | Take 1 tablet by | | 0 | | | | Acid (DIALYVITE PO) | mouth once daily. | | | | 9 | + + + +---------+ + + | cinacalcet | Take 30 mg by mouth | | 0 | 07/04/19 | | | (SENSIPAR) 30 mg | every other day. | | | 14 | 9 | | tablet | | | | | | + + + +---------+ + + | cinacalcet | Take 90 mg by mouth | | 0 | | | | (SENSIPAR) 90 MG | once daily. | | | | 9 | | tablet | Administer with | | | | | | | food. | | | | | + + + +---------+ + + | clopidogrel | Take 75 mg by mouth | | 0 | | | | (PLAVIX) 75 mg | daily. Indications: | | | | 9 | | tablet | Treatment to Prevent | | | | | | | a Blood Clot in a | | | | | | | Vascular Stent | | | | | + + [...] + + | iron sucrose | Inject 100 mg into | | 0 | | | | (VENOFER) 20 mg/mL | the vein (IV) once. | | | | 9 | | injection | Per dialysis unit | | | | | + + + +---------+ + + | metoprolol | Take 1 tablet by | 30 | 4 | 10/23/19 | | | succinate | mouth nightly. | tablet | | 19 | 9 | | [...] + + + +---------+ + + | pantoprazole | Take 1 tablet by | 30 | 4 | 10/24/19 | | | (PROTONIX) 40 mg | mouth every morning | tablet | | 19 | 9 | | tablet | (before breakfast). | | | | | + + [...] promethazine | Take 1 tablet by | 120 | 3 | 10/23/19 | | | (PHENERGAN) 25 mg | mouth every 6 hours | tablet | | 19 | 9 | | tablet | as needed for Nausea | | | | | | | or Vomiting (non | | | | | | | responsive to | | | | | | [...] +---------+ + + | sevelamer | Take 3 tablets by | 270 | 3 | 10/23/19 | | | carbonate (RENVELA) | mouth 3 times daily | tablet | | 19 | 9 | | 800 mg tablet | (with meals). | | | | | + + + +---------+ + + | valsartan (DIOVAN) | Take 1 tablet by | | 0 | 06/15/19 | | | 40 mg tablet | mouth daily. | | | 19 | 9 | + + + +---------+ + + | valsartan (DIOVAN) | Take 1 tablet by | 30 | 4 | 10/24/19 | | | 80 mg tablet | mouth Daily. | tablet | | 19 | 9 | + + + +---------+ + + documented as of this encounter Progress Notes Nereida Coburn RN - 10/22/2018 5:24 PM PDTPatient completed dialysis this afternoon. Med icated for pain as needed, states pain is tolerable at a 6/10. She is discharged home via pr ivate vehicle with family members present. Verbal and written instructions provided to amber ponce, all questions addressed. Rx and all belongings gathered. IVs removed and bandages applie d. Patient ambulated to car and discharged in stable condition with family/friends. Nereida Coburn RN 10/22/18 17:26 René Anand MD - 10/22/2018 6:36 AM PDTFormatting of this note might be different from the or iginal. Hospital Problem List: Principal Problem: Non-cardiogenic pulmonary edema Active Problems: ESRD (end stage renal disease) History of Henoch-Schonlein purpura Acute hypoxemic respiratory failure Dilated cardiomyopathy Moderate to severe pulmonary hypertension Pleural effusion, not elsewhere classified The patient says that she feels 'ok' today. she denies any cp, dyspnea. her urine output i s noted. Admitted for Shortness of breath [R06.02] Pleural effusion, not elsewhere classified [J90] The following portions of the patient's history were reviewed and updated as appropriate: l aboratory data, radiologic studies, allergies, current medications, and problem list. As in History of Present Illness & Assessment below. All the pertinent systems were reviewe d and were otherwise negative. Scheduled Meds: clopidogrel 75 mg Oral Daily heparin 5,000 Units Subcutaneous 2 times per day metoprolol succinate 50 mg Oral Nightly pantoprazole 40 mg Oral QAM AC pharmacy consult - other medications/reasons Other Pharmacy Consult sevelamer carbonate 2,400 mg Oral TID WC valsartan 80 mg Oral Daily Continuous Infusions: PRN Meds:.acetaminophen, acetaminophen, albuterol, albuterol-ipratropium, HYDROmorphone, on dansetron, ondansetron, polyethylene glycol, promethazine, sodium chloride 0.9% BP 129/90 | Pulse 85 | Temp 36.9 C (98.4 F) (Oral) | Resp 16 | Ht 1.702 m (5' 7.01" ) | Wt 64.2 kg (141 lb 8.6 oz) | LMP 06/21/2018 (Exact Date) | SpO2 93% | ? Unknown | BMI 22.16 kg/m General appearance: Pleasant, not in acute distress. Neck: Supple without tracheal deviation or jugular venous distension. Head and ENT: Head is atraumatic. The oropharynx is without erythema or thrush. Eyes: Anicteric. The extraocular muscle movements are normal. Lungs: Clear to auscultation by CHEKO. There are no wheezes. Heart: Regular rate and rhythm without any rub, gallop. Grade 3/[address] at the apex. Abdominal exam: Soft and non-tender. Musculoskeletal: No costovertebral angle tenderness bilaterally. Extremities: Warm to touch with no leg edema. There is no cyanosis. Skin: There are no rashes, petechiae, or ecchymosis. Neurological: Awake, alert, and oriented to time, place, and person. Normal gross motor po wer. There is no asterixis. Psychiatric: The patient s behavior is normal. Judgment and thought content are normal. Access : LUE AVF with good flow Lab Results Component Value Date BUN 16 10/21/2018 EGFR 11 (L) 10/21/2018 NA 139 10/21/2018 K 3.8 10/21/2018 CL 100 10/21/2018 CO2 32 10/21/2018 MG 2.8 (H) 08/21/2018 HGB 11.7 08/21/2018 Intake/Output Summary (Last 24 hours) at 10/22/2018 0636 Last data filed at 10/21/2018 1105 Gross per 24 hour Intake 100 ml Output Net 100 ml Assessment: Ms. Weldon is a 23 y.o. female patient with ESRD, HD. Needed a 1.5-L right thoracentesis Admitted for Shortness of breath [R06.02] Pleural effusion, not elsewhere classified [J90] High risk for electrolyte imbalance. RENAL FUNCTION: ESRD BLOOD PRESSURE: Improved control ELECTROLYTES: Acceptable ALBUMIN: Hypoalb ANEMIA: Normocytic URINALYSIS: No UTI VOLUME STATUS: Euvolemic Recommendations: UF as tolerated Next HD in the outpatient setting EPO with HD as indicated Protein supplements stressed Renal diet restrictions stressed IDWG limitation stressed Strict I/O & daily weights. Dose all of her meds to her current estimated GFR. Continue to avoid all kinds of nephrotoxins. Target euvolumia with a MAP>75 mmHg as possible. Given her tendency for anasarca: Encourage PO intake & close dietitian Encourage ambulation safely. Encourage the adequate use of an incentive spirometer. We discussed the case with the primary team at the time of this encounter. KRISHNA Waters I have seen the patient with Trent KELLER & personally and independently examined her; I have discussed the case with the ENERGY CONSERVATION TECHNICIAN. I agree with his findings & documentation. KRISHNA Waters started the documentation. Note, review of records, exam, recs, plan , discussions were performed, completed by myself on 10/22. F/U: Also seen and examined during dialysis. Tolerating it well. Access: no issues. UF: as tolerated. Next dialysis: MWF. I spent 35 total minutes today in reviewing & updating the patient's chart, formulating a p jen, in addition to patient education and discussions with the nurse practitioner & primary/ consulting team. René Anguiano MD Marci Cat RN - 10/22/2018 5:31 AM PDTPatient vitals signs stable, no acute changes. End of shift audit com plete. orge Diehl RN - 10/21/2018 4:46 PM PDTPt had an uneventful shift. Medicated for pain with PRN dilau did. Pt medicated for nausea with PRN Zofran and Phenergan. Pt to stay one more noc, then swanson ve dialysis in morning before discharge. VSS. Status otherwise unchanged. Chart audit comple te. Antonio Carrasco MD - 10/21/2018 3:00 PM PDT [facility] Service: NEPHROLOGY Progress Note Dara Weldon 23 y.o. 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 Nephrology consulted for evaluation and management ofAcute pulm edema/ hypervolemia/ esrd ONSET Acute onChronic severity severe Associated with fluid electrolyte acid base imbalances In the setting of missed hd/ ADHF combined Assess need for urgent hd/uf Seen and examined Feels ok, improved sob with daily hd/ uf No cp, nausea, vomiting, diarrhea, fever, headache Past Medical History: Diagnosis Date Asthma Clotted dialysis access (HCC) 2014 Congestive heart failure (HCC) ESRD (end stage renal disease) (HCC) ESRD (end stage renal disease) (HCC) HSP (Henoch-Schonlein purpura) nephritis (HCC) 1987 HSP (Henoch-Schonlein purpura) nephritis (HCC) Hypertension Past Surgical History: Procedure Laterality Date ABDOMEN SURGERY AV FISTULA REPAIR 02/24/2014 LEFT Radical Cephalic Fistula Creation; Laterality: Left; Surgeon: Blake Chavarria MD ; Location: [facility] MA[facility] OR AV FISTULA REPAIR Left 03/07/2014 Procedure: AV FISTULA - GRAFT REPAIR/REVISION; Surgeon: Rik Simon MD; Location: [facility] IN OR; Service: Vascular; Laterality: Left; biopsy of kidney age 10 DIALYSIS FISTULA CREATION 04/08/2014 Procedure: DIALYSIS CATHETER - INSERTION; Surgeon: Rik Simon MD; Location: [facility] MAIN OR ; Service: Vascular; Laterality: N/A; tunneled catheter.br hemodialysis catheter KIDNEY BIOPSY Left 2003 OTHER SURGICAL HISTORY LAPAROSCOPIC PERITONEAL DIALYSIS CATHETER INSERTION - x2 OTHER SURGICAL HISTORY Right 07/2013 LAPAROSCOPIC PERITONEAL DIALYSIS CATHETER INSERTION - current dialysis access MWF dialysis OTHER SURGICAL HISTORY Left 06/24/2014 SUPERFICIALIZATION OF AV FISTULA - Procedure: AV FISTULA - SUPERFICIALIZATION; Surgeon: Emanuel Simon MD; Location: [facility] MAIN OR; Service: Vascular; Laterality: Left; OTHER SURGICAL HISTORY Left 04/08/2014 AV FISTULA PLACEMENT - Procedure: AV FISTULA; Surgeon: Rik Simon MD; Location: [facility] OR; Service: Vascular; Laterality: Left; cephalic OTHER SURGICAL HISTORY Left 03/07/2014 DECLOT GRAFT - Procedure: GRAFT - DECLOT; Surgeon: Rik Simon MD; Location: [facility] OR ; Service: Vascular; Laterality: Left; peritoneal catheter Family History Problem Relation Age of Onset High blood pressure Father Heart disease Mother Seizures Mother Hypertension Father Alcohol abuse Father Social History Socioeconomic History Marital status: Single Spouse name: Not on file Number of children: 0 Years of education: Not on file Highest education level: Not on file Social Needs Financial resource strain: Not on file Food insecurity - worry: Not on file Food insecurity - inability: Not on file Transportation needs - medical: Not on file Transportation needs - non-medical: Not on file Occupational History Not on file Tobacco Use Smoking status: Former Smoker Packs/day: 0.50 Smokeless tobacco: Never Used Substance and Sexual Activity Alcohol use: No Drug use: No Comment: Drug use: Yes Sexual activity: Not on file Other Topics Concern Not on file Social History Narrative She lives in [facility]. She does not work. She has 1 full sibling in good health. She has a total of 14 siblings (3 with same mother, rest with same father). 1 half sibling on father's side had a brain tumor. Scheduled Medications clopidogrel 75 mg Oral Daily heparin 5,000 Units Subcutaneous 2 times per day metoprolol succinate 50 mg Oral Nightly pantoprazole 40 mg Oral QAM AC pharmacy consult - other medications/reasons Other Pharmacy Consult sevelamer carbonate 2,400 mg Oral TID WC valsartan 80 mg Oral Daily Continuous Infusions PRN Medications acetaminophen, acetaminophen, albuterol, albuterol-ipratropium, HYDROmorphone, ondansetron, ondansetron, polyethylene glycol, promethazine, sodium chloride 0.9% Allergy: Allergies Allergen Reactions Adhesive & Tape Rash Certain tapes Fentanyl Itching Iodinated Diagnostic Agents Itching Pt c/o face itching during fistulagram Methylphenidate Other (See Comments) Patient says skin was crawling Morphine Itching and Rash Reglan [Metoclopramide] Itching Lisinopril cough OBJECTIVE Vital Signs: BP 114/72 | Pulse 79 | Temp 36.8 C (98.3 F) (Oral) | Resp 16 | Ht 1.702 m (5' 7.01" ) | Wt 64.2 kg (141 lb 8.6 oz) | LMP 06/21/2018 (Exact Date) | SpO2 99% | ? Unknown | BMI 22.16 kg/m I&O Detailed Table: I/O last 3 completed shifts: In: 800 [P.O.:800] Out: 2200 Weight change: -0.4 kg (-14.1 oz) Examination: seen with hd rn APPEARANCE: The patient is a pleasant lying in the bed in no distress, awake and alert VITALS: Reviewed as listed. HEAD: NC/AT. NECK: Supple. LUNGS: Decrease bs at right base, no respiratory distress. HEART: S1, S2, no pericardial rub noted. ABDOMEN: distended, no tenderness. EXTREMITIES:+vepedal edemanoted. Speech fluent NEUROLOGIC: No gross focal motor deficitnoted. PSYCH: The patient is alert and oriented x3, mood and affect looks ok MARISEL AVF functioning well LABS: Recent Results (from the past 24 hour(s)) Basic Metabolic Panel Collection Time: 10/21/18 5:48 Result Value Ref Range Na 139 135 - 145 mmol/L K 3.8 3.5 - 4.9 mmol/L Cl 100 99 - 109 mmol/L CO2 32 23 - 32 mmol/L Anion Gap 11 5 - 20 mmol/L Glucose 105 (H) 65 - 99 mg/dL BUN 16 8 - 25 mg/dL Creatinine 5.0 (H) 0.50 - 1.00 mg/dL BUN/Creatinine Ratio 3 Ca 9.7 8.5 - 10.5 mg/dL Estimated GFR 11 (L) >60 mL/min/1.73m2 Imaging @RISRESULT@ PROBLEM LIST Principal Problem: Non-cardiogenic pulmonary edema Active Problems: ESRD (end stage renal disease) History of Henoch-Schonlein purpura Acute hypoxemic respiratory failure Dilated cardiomyopathy Moderate to severe pulmonary hypertension Pleural effusion, not elsewhere classified ASSESSMENT & PLAN FLUID OVERLOAD/ ANASARCA/ EDEMA/ pulmonary edema Improved In the setting of missed hd/ ADHF combined Got hd with uf x 3 , plan for hd/ uf in am LOW NA DIET 2GM/ 24 HOURS FLUID RESTRICTION 1.2 LITERS / 24 HOURS DAILY WEIGHTS STRICT I/O -06/2018 echocardiogram-overall left ventricular systolic function is moderate/severely imp aired, EF 30-35%. Restrictive LV diastolic filling pattern, consistent with elevated LA pr essure and severe dysfunction, grade 3. Moderate MR, severe TR.severe pulmonary hyperten arturo Chest [id number] with pulmonary edema and large right pleural effusion Troponin I-0.151. BNP 1151 Lab Results Component Value Date BUN 16 10/21/2018 BUN 18 10/20/2018 BUN 31 (H) 08/22/2018 BUN 79 (H) 08/21/2018 BUN 66 (H) 08/20/2018 HYPERKALEMIA Improved Low k diet Watch k level closely Lab Results Component Value Date K 3.8 10/21/2018 K 4.1 10/20/2018 K 5.1 (H) 08/22/2018 K 5.4 (H) 08/21/2018 K 5.1 (H) 08/20/2018 HYPERTENSION Controlled WATCH BP CLOSELY DURING HOSPITALIZATION LOW NA DIET Will adjust BP meds according to BP readings BP Readings from Last 3 Encounters: 10/21/18 114/72 08/23/18 121/66 07/24/18 121/70 ESRD ON HD No need for hd/uf today from fluid electrolyte acid base balance point of view Assess daily need for hd/uf Orders in the chart Fluid restriction 1.2 litres/24 hours Strict I & O Daily RFP Renal diet Daily weights will help with subsequent hd with uf Dose all meds per protocol for ESRD on hd ANEMIA in ESRD No Epogen as hgb above 11.0 EPOGEN TO KEEP HGB 10-11 Lab Results Component Value Date HGB 11.7 08/21/2018 HGB 11.9 08/20/2018 HGB 11.7 07/24/2018 HYPERPHOSPHATEMIA LOW P DIET PO4 BINDERS Renvela with meals No results found for: PHOS Hypoalbuminemia Increase protein intake No results found for: ALB CASE DISCUSSED IN DETAIL WITH PATIENT/ care team, ANSWERS ALL QUESTIONS IN DETAIL, VERBALIZ ES UNDERSTANDING Antonio Benjamin MD 10/21/2018 Jonathan Alonso MD Seen earlier and charting completed later Dictation software, Abigail Stewart, used which may contain error for similar sounding words even af ter review. Personal communication requested for any clarification. Portions of my notes may have been carried over for continuity of care.Electronically ananth d by Antonio Benjamin MD at 10/21/2018 3:11 PM Gerber Fernandez MD - 10/21/2018 7:18 AM PD T [facility] Adult Hospitalist Progress Note Hospital Day: 4 Patient Summary: 23-year-old female withy a history of end-stage renal disease on hemodialysis, history of poor compliance, history of Henoch-schnlein purpura , combined systolic/diastolic congesti ve heart failure (echo 06/12/18: EF 30 to 35%, severe diastolic dysfunction grade 3 severe t ricuspid valve regurgitation, severe pulmonary hypertension), recurrent pleural effusion, ad mitted 08/22/2018 for noncardiogenic pulmonary edema due to reexpansion lung injury after tho racentesis. Patient indicates that she has been noncompliant with her hemodialysis for over 2 weeks, in addition has been noncompliant with her medications. She presented to the emergency department y with progressive dyspnea lower extremity edema, on evaluation she was noted to have a creatinine of 14.52 BUN 89, potassium 5.5. Chest x-r ay showed cardiomegaly pulmonary edema and again right large pleural effusion. She was hemo dynamically stable on 5 L. She was admitted, underwent hemodialysis daily, thoracentesis performed on the with 1. 5 L removed She indicates a generally feeling improved, dyspnea improved, currently on 2 L oxygen, begi nning next cycle of hemodialysis Has been afebrile, no nausea no emesis mild pruritus. Poor appetite Has been ambulating in the room SUBJECTIVE No acute events overnight, patient has been receiving daily hemodialysis, well-tolera wilmer. This morning oxygen requirements have improved, 92% on room air. Patient indicates feeling much improved, she believes she is still not at her goal dry weig ht and feels she may benefit with an additional day of hemodialysis. Pains have been well controlled, no nausea no emesis. OBJECTIVE Vital Signs: BP 110/67 | Pulse 85 | Temp 36.8 C (98.3 F) (Oral) | Resp 16 | Ht 1.702 m (5' 7.01" ) | Wt 64.2 kg (141 lb 8.6 oz) | LMP 06/21/2018 (Exact Date) | SpO2 95% | ? Unknown | BMI 22.16 kg/m Physical Exam Constitutional: She appears well-developed. No distress. Awake alert lying in bed able to sit up On room air Cardiovascular: Normal rate. Pulmonary/Chest: Decreased breath sounds right lower lobe though much improved since admission Abdominal: Soft. Bowel sounds are normal. Musculoskeletal: She exhibits no edema. Neurological: She is alert. Skin: She is not diaphoretic. Psychiatric: She has a normal mood and affect. Her behavior is normal. Nursing note and vitals reviewed. DATA No results for input(s): INR in the last 168 hours. Recent Labs Lab 10/21/18 0548 10/20/18 0641 NA 139 141 K 3.8 4.1 CL 100 103 CO2 32 31 BUN 16 18 EGFR 11* 9* CALCIUM 9.7 8.9 ANIONGAP 11 11 No results for input(s): TROPONINT, CKMB in the last 168 hours. Invalid input(s): CKTOTAL, TROPONINI, CKMBINDEX, PCOTNI No results for input(s): CLARITYU, LEUKOCYTESUR, UROBILINOGEN, PHUR, BLOODU, KETONES, BILIR UBINUR, GLUCOSEU, RBCU, BACTERIA, COMU in the last 168 hours. Invalid input(s): UCOL, SPECGRAV, NITRITE, UPRO No results found. PROBLEM LIST Principal Problem: Non-cardiogenic pulmonary edema Active Problems: ESRD (end stage renal disease) History of Henoch-Schonlein purpura Acute hypoxemic respiratory failure Dilated cardiomyopathy Moderate to severe pulmonary hypertension Pleural effusion, not elsewhere classified IMPRESSION/PLAN: #1. End-stage renal disease's on hemodialysis -Presents with volume overload due to noncompliance with hemodialysis and a combined systol ic/diastolic chronic congestive heart -Potassium 5.5, creatinine 14, BUN 90 on admission -History of a Tresckow Schnlein purpura -Last hemodialysis approximately 2 weeks ago -Currently undergoing daily hemodialysis, with volume removal -Nephrology has been consulted for hematology #2. 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 Follows Dr. Mahmood -History of recurrent pleural effusions, ascites -Chest x-ray with cardiomegaly pulmonary edema and again large right pleural effusion -Troponin I 0.151, likely due to underlying chronic kidney disease -Continue beta-lia; Toprol-XL 50mg, valsartan 40 mg -Discussed case with Dr. Mahmood over the phone; outpatient follow-up recommended -Currently stable #3. Recurrent pleural effusion/acute hypoxic respiratory failure -Presents with large right pleural effusion due to noncompliance with hemodialysis and a co mbined systolic/diastolic congestive heart failure -Prior history of a recurrent thoracentesis, admitted 08/22 with reexpansion lung injury -Right thoracentesis performed on the , 1.5 L removed, well-tolerated. Repeat ches t x-ray reviewed -Continue daily hemodialysis, volume removal -Oxygen requirements have been weaned off, currently 93% on room air I #4. DVT prophylax -Subcu heparin Disposition. Patient being dialyzed daily,; patient clinically improving, suspect could te ntatively be discharged over the next 24 hours pending nephrology's final recommendations Gerber Pearson MD 7:18 10/21/2018 Marci Cat RN - 10/21/2018 5:50 AM PDTPatient vitals signs stable, no acute changes. End of shift audit complete. Hal Morgan RN - 10/20/2018 6:19 PM PDTPatient medicated x2 on shift. Dialysis today, 2200 lite r taken off. On O2 2 liters. End of shift review complete. Trent Jovel, RN IAGerber Pearson Camille D - 10/20/2018 9:09 AM PDT [facility] Adult Hospitalist Progress Note Hospital Day: 3 Patient Summary: 23-year-old female withy a history of end-stage renal disease on hemodialysis, history of poor compliance, history of Henoch-schnlein purpura , combined systolic/diastolic congesti ve heart failure (echo 06/12/18: EF 30 to 35%, severe diastolic dysfunction grade 3 severe t ricuspid valve regurgitation, severe pulmonary hypertension), recurrent pleural effusion, ad mitted 08/22/2018 for noncardiogenic pulmonary edema due to reexpansion lung injury after tho racentesis. Patient indicates that she has been noncompliant with her hemodialysis for over 2 weeks, in addition has been noncompliant with her medications. She presented to the emergency department y with progressive dyspnea lower extremity edema, on evaluation she was noted to have a creatinine of 14.52 BUN 89, potassium 5.5. Chest x-r ay showed cardiomegaly pulmonary edema and again right large pleural effusion. She was hemo dynamically stable on 5 L. She was admitted, underwent hemodialysis daily, thoracentesis performed on the with 1. 5 L removed She indicates a generally feeling improved, dyspnea improved, currently on 2 L oxygen, marty olivarez next cycle of hemodialysis Has been afebrile, no nausea no emesis mild pruritus. Poor appetite Has been ambulating in the room SUBJECTIVE No acute events overnight, patient continues to the to receive a daily hemodialysis ( 2.4L removed), currently on 2 L oxygen Has been afebrile no nausea no emesis OBJECTIVE Vital Signs: BP 106/57 | Pulse 81 | Temp 36.5 C (97.7 F) (Oral) | Resp 18 | Ht 1.702 m (5' 7.01" ) | Wt 64.5 kg (142 lb 3.2 oz) | LMP 06/21/2018 (Exact Date) | SpO2 96% | ? Unknown | BMI 22.27 kg/m Physical Exam Constitutional: She appears well-developed. No distress. Awake alert lying in bed able to sit up On 2 L oxygen Cardiovascular: Normal rate. Pulmonary/Chest: Decreased breath sounds right lower lobe though much improved since admission Abdominal: Soft. Bowel sounds are normal. Musculoskeletal: She exhibits no edema. Neurological: She is alert. Skin: She is not diaphoretic. Psychiatric: She has a normal mood and affect. Her behavior is normal. Nursing note and vitals reviewed. DATA No results for input(s): INR in the last 168 hours. Recent Labs Lab 10/20/18 0641 NA 141 K 4.1 CL 103 CO2 31 BUN 18 EGFR 9* CALCIUM 8.9 ANIONGAP 11 No results for input(s): TROPONINT, CKMB in the last 168 hours. Invalid input(s): CKTOTAL, TROPONINI, CKMBINDEX, PCOTNI No results for input(s): CLARITYU, LEUKOCYTESUR, UROBILINOGEN, PHUR, BLOODU, KETONES, BILIR UBINUR, GLUCOSEU, RBCU, BACTERIA, COMU in the last 168 hours. Invalid input(s): UCOL, SPECGRAV, NITRITE, UPRO No results found. PROBLEM LIST Active Problems: * No active hospital problems. * IMPRESSION/PLAN: #1. End-stage renal disease's on hemodialysis -Presents with volume overload due to noncompliance with hemodialysis and a combined systol ic/diastolic chronic congestive heart -Potassium 5.5, creatinine 14, BUN 90 on admission -History of a Tresckow Schnlein purpura -Last hemodialysis approximately 2 weeks ago -Currently undergoing daily hemodialysis, with volume removal -Nephrology has been consulted for hematology #2. 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 Follows Dr. Mahmood -History of recurrent pleural effusions, ascites -Chest x-ray with cardiomegaly pulmonary edema and again large right pleural effusion -Troponin I 0.151, likely due to underlying chronic kidney disease -Continue beta-lia; Toprol-XL 50mg, valsartan 40 mg -Discussed case with Dr. Mahmood over the phone; outpatient follow-up recommended #3. Recurrent pleural effusion/acute hypoxic respiratory failure -Presents with large right pleural effusion due to noncompliance with hemodialysis and a co mbined systolic/diastolic congestive heart failure -Prior history of a recurrent thoracentesis, admitted 08/22 with reexpansion lung injury -Right thoracentesis performed on the , 1.5 L removed, well-tolerated. Repeat ches t x-ray reviewed -Continue daily hemodialysis, volume removal -Oxygen requirements improving, currently on 2 L. May require home O2 eval I #4. DVT prophylax -Subcu heparin Gerber Pearson MD 9:09 10/20/2018 documented in this e ncounter Plan of Treatment Not on filedocumented as of this encounter Procedures + +--------+ + + + | Procedure Name | Priori | Date/Time | Associated Diagnosis | Comments | | | ty | | | | + +--------+ + + + | CBC NO DIFFERENTIAL | Routin | 10/22/2018 | | Results for this | | | e | 1:10 PM | | procedure are in the | | | | PDT | | results section. | + +--------+ + + + | BASIC METABOLIC | Routin | 10/22/2018 | | Results for this | | PANEL | e | 5:33 AM | | procedure are in the | | | | PDT | | results section. | + +--------+ + + + | BASIC METABOLIC | Routin | 10/21/2018 | | Results for this | | PANEL | e | 5:48 AM | | procedure are in the | | | | PDT | | results section. | + +--------+ + + + | BASIC METABOLIC | Routin | 10/20/2018 | | Results for this | | PANEL | e | 6:41 AM | | procedure are in the | | | | PDT | | results section. | + +--------+ + + + documented in this encounter Results CBC no Differential (10/22/2018 1:10 PM PDT) + + + + + + | Component | Value | Ref Range | Performed | Pathologist | | | | | At | Signature | + + + + + + | WBC | 5.23 | 3.80 - 11.00 | [facility] | | | | | K/uL | LABORATORY | | + + + + + + | RBC | 3.29 (L) | 3.70 - 5.10 | [facility] | | | | | M/uL | LABORATORY | | + + + + + + | Hemoglobin | 12.0 | 11.3 - 15.5 | [facility] | | | | | g/dL | LABORATORY | | + + + + + + | Hematocrit | 35.4 | 34.0 - 46.0 % | [facility] | | | | | | LABORATORY | | + + + + + + | MCV | 107.5 (H) | 80.0 - 100.0 fl | [facility] | | | | | | LABORATORY | | + + + + + + | MCH | 36.4 (H) | 27.0 - 34.0 pg | [facility] | | | | | | LABORATORY | | + + + + + + | MCHC | 33.9 | 32.0 - 35.5 | [facility] | | | | | g/dL | LABORATORY | | + + + + + + | RDW-SD | 54.3 (H) | 37 - 53 fl | [facility] | | | | | | LABORATORY | | + + + + + + | Platelet | 156 | 150 - 400 K/uL | [facility] | | | Count | | | LABORATORY | | + + + + + + | MPV | 10.4Comment: Testing | fl | [facility] | | | | performed at [facility], [address] | | LABORATORY | | | | [address], | | | | | | [place] [address] | | | | + + + + + + + + | Specimen | + + | Blood | + + + + + + + | Performing | Address | City/State/Zipcode | Phone Number | | Organization | | | | + + + + + | [facility] | [address] | [place] [address] | [phone] | + + + + + Basic Metabolic Panel (10/22/2018 5:33 AM PDT) + + + + + + | Component | Value | Ref Range | Performed | Pathologist | | | | | At | Signature | + + + + + + | Na | 140 | 135 - 145 | [facility] | | | | | mmol/L | LABORATORY | | + + + + + + | K | 4.1 | 3.5 - 4.9 | [facility] | | | | | mmol/L | LABORATORY | | + + + + + + | Cl | 102 | 99 - 109 mmol/L | [facility] | | | | | | LABORATORY | | + + + + + + | CO2 | 28 | 23 - 32 mmol/L | [facility] | | | | | | LABORATORY | | + + + + + + | Anion Gap | 14 | 5 - 20 mmol/L | [facility] | | | | | | LABORATORY | | + + + + + + | Glucose | 83 | 65 - 99 mg/dL | [facility] | | | | | | LABORATORY | | + + + + + + | BUN | 28 (H) | 8 - 25 mg/dL | [facility] | | | | | | LABORATORY | | + + + + + + | Creatinine | 7.3 (H) | 0.50 - 1.00 | [facility] | | | | | mg/dL | LABORATORY | | + + + + + + | BUN/Creatin | 4 | | [facility] | | | ine Ratio | | | LABORATORY | | + + + + + + | Calcium | 9.4 | 8.5 - 10.5 | [facility] | | | | | mg/dL | LABORATORY | | + + + + + + | Estimated | 7 (L)Comment: GFR <60: | >60 | [facility] | | | GFR | CHRONIC KIDNEY [...] | | | | | | MDRD IDVA traceable | | | | | | equation.Testing | | | | | | performed at [facility], [address] | | | | | | [facility], | | | | | | [place] [address] | | | | + + + + + + + + | Specimen | + + | Blood - Right upper | | arm structure (body | | structure) | + + + + + + + | Performing | Address | City/State/Zipcode | Phone Number | | Organization | | | | + + + + + | [facility] | [address] | [place] [address] | [phone] | + + + + + Basic Metabolic Panel (10/21/2018 5:48 AM PDT) + + + + + + | Component | Value | Ref Range | Performed | Pathologist | | | | | At | Signature | + + + + + + | Na | 139 | 135 - 145 | [facility] | | | | | mmol/L | LABORATORY | | + + + + + + | K | 3.8 | 3.5 - 4.9 | [facility] | | | | | mmol/L | LABORATORY | | + + + + + + | Cl | 100 | 99 - 109 mmol/L | [facility] | | | | | | LABORATORY | | + + + + + + | CO2 | 32 | 23 - 32 mmol/L | [facility] | | | | | | LABORATORY | | + + + + + + | Anion Gap | 11 | 5 - 20 mmol/L | [facility] | | | | | | LABORATORY | | + + + + + + | Glucose | 105 (H) | 65 - 99 mg/dL | [facility] | | | | | | LABORATORY | | + + + + + + | BUN | 16 | 8 - 25 mg/dL | [facility] | | | | | | LABORATORY | | + + + + + + | Creatinine | 5.0 (H) | 0.50 - 1.00 | [facility] | | | | | mg/dL | LABORATORY | | + + + + + + | BUN/Creatin | 3 | | [facility] | | | ine Ratio | | | LABORATORY | | + + + + + + | Calcium | 9.7 | 8.5 - 10.5 | [facility] | | | | | mg/dL | LABORATORY | | + + + + + + | Estimated | 11 (L)Comment: GFR <60: | >60 | [facility] | | | GFR | CHRONIC KIDNEY [...] | | | | | | MDRD IDVA traceable | | | | | | equation.Testing | | | | | | performed at [facility], [address] | | | | | | [facility], | | | | | | [place] [address] | | | | + + + + + + + + | Specimen | + + | Blood - Right upper | | arm structure (body | | structure) | + + + + + + + | Performing | Address | City/State/Zipcode | Phone Number | | Organization | | | | + + + + + | [facility] | [address] | [place] [address] | [phone] | + + + + + Basic Metabolic Panel (10/20/2018 6:41 AM PDT) + + + + + + | Component | Value | Ref Range | Performed | Pathologist | | | | | At | Signature | + + + + + + | Na | 141 | 135 - 145 | [facility] | | | | | mmol/L | LABORATORY | | + + + + + + | K | 4.1 | 3.5 - 4.9 | [facility] | | | | | mmol/L | LABORATORY | | + + + + + + | Cl | 103 | 99 - 109 mmol/L | [facility] | | | | | | LABORATORY | | + + + + + + | CO2 | 31 | 23 - 32 mmol/L | [facility] | | | | | | LABORATORY | | + + + + + + | Anion Gap | 11 | 5 - 20 mmol/L | [facility] | | | | | | LABORATORY | | + + + + + + | Glucose | 90 | 65 - 99 mg/dL | [facility] | | | | | | LABORATORY | | + + + + + + | BUN | 18 | 8 - 25 mg/dL | [facility] | | | | | | LABORATORY | | + + + + + + | Creatinine | 5.83 (H) | 0.50 - 1.00 | [facility] | | | | | mg/dL | LABORATORY | | + + + + + + | BUN/Creatin | 3 | | [facility] | | | ine Ratio | | | LABORATORY | | + + + + + + | Calcium | 8.9 | 8.5 - 10.5 | [facility] | | | | | mg/dL | LABORATORY | | + + + + + + | Estimated | 9 (L)Comment: GFR <60: | >60 | [facility] | | | GFR | CHRONIC KIDNEY [...] | | | | | | MDRD [facility] traceable | | | | | | equation.Testing | | | | | | performed at [facility] | | | | | | [facility];[place], [place] | | | | | | [id number] | | | | + + + + + + + + | Specimen | + + | Blood - Right upper | | arm structure (body | | structure) | + + + + + + + | Performing | Address | City/State/Zipcode | Phone Number | | Organization | | | | + + + + + | [facility] | [id number] | [place] [address] | [phone] | + + + + + documented in this encounter Visit Diagnoses + + | Diagnosis | + + | Non-cardiogenic pulmonary edema - Primary Pulmonary congestion and hypostasis | + + | ESRD (end stage renal disease) (HCC) End stage renal disease | + + | Dilated cardiomyopathy (HCC) Other primary cardiomyopathies | + + | Anemia in ESRD (end-stage renal disease) (HCC) Anemia in chronic kidney disease | + + | Hyperphosphatemia Disorders of phosphorus metabolism | + + | Hypertension, unspecified type | + + | Hypervolemia, unspecified hypervolemia type | + + | Acute hypoxemic respiratory failure (HCC) | + + | At high risk for electrolyte imbalance | + + | Non-compliance Personal history of noncompliance with medical treatment, presenting | | hazards to health | + + | Hypoalbuminemia Other disorders of plasma protein metabolism | + + | ESRD on hemodialysis (HCC) End stage renal disease | + + | History of Henoch-Schonlein purpura Personal history of diseases of skin and | | subcutaneous tissue | + + | Pleural effusion, not elsewhere classified | + + | Moderate to severe pulmonary hypertension (HCC) Other chronic pulmonary heart | | diseases | + + documented in this encounter Administered Medications + +--------+---------+------+------+------+ | Medication Order | MAR | Action | Dose | Rate | Site | | | Action | Date | | | | + +--------+---------+------+------+------+ + +---+ | acetaminophen (TYLENOL) | | | suppository 650 mg 650 mg, | | | Rectal, EVERY 6 HOURS PRN, Pain, | | | Fever, Starting Mon10/19/18 at | | | 1116, Give suppository if patient | | | unable to tolerate oral., | | + +---+ | | | + +---+ | acetaminophen (TYLENOL) tablet | | | 650 mg 650 mg, Oral, EVERY 6 | | | HOURS PRN, Pain, Fever, Starting | | | Mon10/19/18 at 1116, Give | | | suppository if patient unable to | | | tolerate oral., | | + +---+ | | | + +---+ | albuterol 90 mcg/puff inhaler 2 | | | puff 2 puff, Inhalation, RT | | | EVERY 6 HOURS PRN, Wheezing, | | | Starting Mon10/19/18 at 1117, | | | Shake well. Use with spacer., | | + +---+ | | | + +---+ | albuterol-ipratropium 2.5-0.5 | | | mg/3 mL nebulizer solution 3 mL | | | 3 mL, Nebulization, RT EVERY 6 | | | HOURS PRN, Wheezing, Shortness of | | | Breath, Starting 10/19/18 at | | | 1122 | | + +---+ | | | + +---+ + +-------+ +-------+---+---+ | clopidogrel (PLAVIX) tablet 75 | Given | 10/23/19 | 75 mg | | | | mg 75 mg, Oral, DAILY, First | | 19 8:13 | | | | | dose on 10/20/18 at 0900 | | AM PDT | | | | + +-------+ +-------+---+---+ +-------+ +-------+---+---+ | Given | 10/22/19 | 75 mg | | | | | 19 8:39 | | | | | | AM PDT | | | | +-------+ +-------+---+---+ | Given | 10/21/19 | 75 mg | | | | | 19 12:55 | | | | | | PM PDT | | | | +-------+ +-------+---+---+ + +---+ | | | + +---+ | heparin 5,000 units/mL | | | injection 5,000 Units 5,000 | | | Units, Subcutaneous, EVERY 12 | | | HOURS (2 times per day), First | | | dose on Mon10/19/18 at 1145, Hold | | | for platelets less than [address], | | + +---+ | | | + +---+ + +-------+ +--------+---+---+ | HYDROmorphone (DILAUDID) | Given | 10/22/19 | 0.5 mg | | | | injection 0.5 mg 0.5 mg, | | 19 11:54 | | | | | Intravenous, EVERY 4 HOURS PRN, | | PM PDT | | | | | Pain, Starting Mon10/19/18 at | | | | | | | 1122, If unable to take PO, | | | | | | + +-------+ +--------+---+---+ +-------+ +--------+---+---+ | Given | 10/22/19 | 0.5 mg | | | | | 19 8:21 | | | | | | PM PDT | | | | +-------+ +--------+---+---+ | Given | 10/22/19 | 0.5 mg | | | | | 19 4:01 | | | | | | PM PDT | | | | +-------+ +--------+---+---+ +---+---+ | | | +---+---+ + +-------+ +-------+---+---+ | metoprolol succinate | Given | 10/22/19 | 50 mg | | | | (TOPROL-XL) ER tablet 50 mg 50 | | 19 8:21 | | | | | mg, Oral, NIGHTLY, First dose on | | PM PDT | | | | | 10/19/18 at 2100, Tablet may | | | | | | | be cut where scored but do not | | | | | | | crush. Hold for hr less than 50 | | | | | | | and sbp less than 100, | | | | | | + +-------+ +-------+---+---+ +-------+ +-------+---+---+ | Given | 10/21/19 | 50 mg | | | | | 19 9:02 | | | | | | PM PDT | | | | +-------+ +-------+---+---+ + +---+ | | | + +---+ | ondansetron (ZOFRAN ODT) | | | disintegrating tablet 4 mg 4 mg, | | | Oral, EVERY 6 HOURS PRN, Nausea, | | | Vomiting, Starting 10/19/18 | | | at 1116, Give PO if no IV access. | | | Notify provider if treatment | | | ineffective., | | + +---+ | | | + +---+ + +-------+ +------+---+---+ | ondansetron (ZOFRAN) injection | Given | 10/23/19 | 4 mg | | | | 4 mg 4 mg, Intravenous, EVERY 6 | | 19 8:25 | | | | | HOURS PRN, Nausea, Vomiting, | | AM PDT | | | | | Starting 10/19/18 at 1116, | | | | | | | Give PO if no IV access. Notify | | | | | | | provider if treatment | | | | | | | ineffective., | | | | | | + +-------+ +------+---+---+ +-------+ +------+---+---+ | Given | 10/22/19 | 4 mg | | | | | 19 7:24 | | | | | | PM PDT | | | | +-------+ +------+---+---+ | Given | 10/22/19 | 4 mg | | | | | 19 8:36 | | | | | | AM PDT | | | | +-------+ +------+---+---+ +---+---+ | | | +---+---+ + +-------+ +---------+---+---+ | oxyCODONE-acetaminophen | Given | 10/23/19 | 2 | | | | (PERCOCET) 5-325 mg per tablet | | 19 3:58 | tablets | | | | 1-2 tablet 1-2 tablet, Oral, | | PM PDT | | | | | EVERY 4 HOURS PRN, Pain, Starting | | | | | | | 10/22/18 at 0755 | | | | | | + +-------+ +---------+---+---+ +-------+ +---------+---+---+ | Given | 10/23/19 | 2 | | | | | 19 12:16 | tablets | | | | | PM PDT | | | | +-------+ +---------+---+---+ | Given | 10/23/19 | 2 | | | | | 19 8:13 | tablets | | | | | AM PDT | | | | +-------+ +---------+---+---+ +---+---+ | | | +---+---+ + +-------+ +-------+---+---+ | pantoprazole (PROTONIX) DR | Given | 10/23/19 | 40 mg | | | | tablet 40 mg 40 mg, Oral, DAILY | | 19 8:13 | | | | | BEFORE BREAKFAST, First dose on | | AM PDT | | | | | 10/19/18 at 1145, Do not cut | | | | | | | or crush., Indication: Unknown, | | | | | | | provider to assess | | | | | | + +-------+ +-------+---+---+ +-------+ +-------+---+---+ | Given | 10/22/19 | 40 mg | | | | | 19 6:28 | | | | | | AM PDT | | | | +-------+ +-------+---+---+ | Given | 10/21/19 | 40 mg | | | | | 19 7:43 | | | | | | AM PDT | | | | +-------+ +-------+---+---+ + +---+ | | | + +---+ | pharmacy consult - other | | | medications/reasons PHARMACY | | | CONSULT, Starting 10/20/18 at | | | 0000, Pharmacy to consult for | | | another reason? adjust | | | medications to creatinine | | | clearance | | + +---+ | | | + +---+ | polyethylene glycol (MIRALAX) | | | powder 17 g 17 g, Oral, DAILY | | | PRN, Constipation, Starting Fri | | | 10/19/18 at 1116, Mix with 8 oz. | | | water., | | + +---+ | | | + +---+ + +-------+ +-------+---+---+ | promethazine (PHENERGAN) tablet | Given | 10/22/19 | 25 mg | | | | 25 mg 25 mg, Oral, EVERY 6 | | 19 11:54 | | | | | HOURS PRN, Nausea, Vomiting, non | | PM PDT | | | | | responsive to zofran, Starting | | | | | | | 10/19/18 at 1123 | | | | | | + +-------+ +-------+---+---+ +-------+ +-------+---+---+ | Given | 10/22/19 | 25 mg | | | | | 19 4:01 | | | | | | PM PDT | | | | +-------+ +-------+---+---+ | Given | 10/21/19 | 25 mg | | | | | 19 11:41 | | | | | | PM PDT | | | | +-------+ +-------+---+---+ +---+---+ | | | +---+---+ + +-------+ + +---+---+ | sevelamer carbonate (RENVELA) | Given | 10/23/19 | 2,400 mg | | | | tablet 2,400 mg 2,400 mg, Oral, | | 19 3:14 | | | | | 3 TIMES DAILY WITH MEALS, First | | PM PDT | | | | | dose on Mon10/19/18 at 1200, Do | | | | | | | not cut or crush tablets., | | | | | | + +-------+ + +---+---+ +-------+ + +---+---+ | Given | 10/23/19 | 2,400 mg | | | | | 19 8:12 | | | | | | AM PDT | | | | +-------+ + +---+---+ | Given | 10/22/19 | 2,400 mg | | | | | 19 4:02 | | | | | | PM PDT | | | | +-------+ + +---+---+ + +---+ | | | + +---+ | sodium chloride 0.9% (NS) bolus | | | 100 mL 100 mL, Intravenous, | | | Administer over 15 Minutes, | | | DIALYSIS - PRN, Hypotension, | | | Starting 10/22/18 at 1309, | | | Treatment date(s): 10/22/2018, For | | | BP less than 100 mm Hg. Give | | | 100 mL bolus up to 1000 mL. | | | DIALYSIS USE ONLY - DISCONTINUE | | | AFTER DIALYSIS THERAPY IS | | | COMPLETE, Dialysis | | + +---+ | | | + +---+ | sodium chloride 0.9% (NS) bolus | | | 200 mL 200 mL, Intravenous, | | | Administer over 5 Minutes, EVERY | | | 15 MIN PRN, prevent clotting, | | | Starting Mon10/19/18 at 1124 | | + +---+ | | | + +---+ + +-------+ +-------+---+---+ | valsartan (DIOVAN) tablet 80 mg | Given | 10/23/19 | 80 mg | | | | 80 mg, Oral, DAILY, First dose | | 19 8:14 | | | | | on Mon10/19/18 at 1145 | | AM PDT | | | | + +-------+ +-------+---+---+ +-------+ +-------+---+---+ | Given | 10/22/19 | 80 mg | | | | | 19 8:39 | | | | | | AM PDT | | | | +-------+ +-------+---+---+ | Given | 10/21/19 | 80 mg | | | | | 19 12:55 | | | | | | PM PDT | | | | +-------+ +-------+---+---+ +---+---+ | | | +---+---+ documented in this encounter
--- OUTSIDE RECORDS SUMMARY | ~2019-07-14 | XMS | Encounter Summary ---
Demographics + + + | Address | [address] | | | [place] [address] | + + + | Home Phone | | + + + | Preferred Language | Unknown | + + + | Marital Status | Single | + + + | Taoist Affiliation | Unknown | + + + | Race | Unknown | + + + | Ethnic Group | Unknown | + + + Author + + + | Author | [facility] | | | and [place] | + + + | Organization | [facility] | | | and [place] [...] Providers + +------+ + | Care Medical Coder Name | Role | Phone | + [...] + + | 11/12/ | Telephone | [facility] | Silvia Rabago | DME (carlie, cmn, | | 2018 | | [address] | [place] | [employer] [employer]) | | | | [place] | | | | | | [address] | | | | | | [phone] | | | +--------+ + + + [...]
--- OUTSIDE RECORDS SUMMARY | ~2019-07-14 | XMS | Encounter Summary ---
Demographics + + + | Address | [address] | | | [place] [address] | + + + | Home Phone | | + + + | Preferred Language | Unknown | + + + | Marital Status | Single | + + + | Christian Affiliation | Unknown | + + + | Race | Unknown | + + + | Ethnic Group | Unknown | + + + Author + + + | Author | [facility] | | | and Josephana | + + + | Organization | [facility] | | | and Josephana [...] Team Providers + +------+ + | Care Cattle Manager Name | Role | Phone | + +------+ + PCP | Unavailable | + +------+ + Reason for Visit Auth/Cert +--------+--------+ + + + + | Status | Reason | Specialty | Diagnoses / | Referred By | Referred To | | | | | Procedures | Contact | Contact | +--------+--------+ + + + + | Closed | | | Diagnoses | | | | | | | End stage | | | | | | | renal | | | | | | | disease | | | | | | | (HCC) End | | | | | | | stage renal | | | | | | | disease | | | | | | | (HCC) | | | | | | | Procedures | | | | | | | RI | | | | | | | ANASTOMOSIS, | | | | | | | AV,ANY SITE | | | | | | | INSERTION | | | | | | | AV FISTULA | | | +--------+--------+ + + + + Encounter Details +--------+---------+ + + + | Date | Type | Department | Care Team | Description | +--------+---------+ + + + | 02/24/ | Surgery | [facility] | Blake Chavarria | LEFT Radical | | 2013 | | [facility] | MD Antonieta, FACS [address] | Cephalic Fistula | | | | [address] | [place]OS | Creation | | | | [place] | [place] [address] | | | | | [address] | [phone] | | | | | [phone] | | | +--------+---------+ + + + [...] + + + | Blood Pressure | 95/46 | 02/24/2014 12:00 PM | | | | | PST | | + + + + + | Pulse | 95 | 02/24/2014 12:00 PM | | | | | PST | | + + + + + | Temperature | 37 C (98.6 F) | 02/24/2014 10:21 AM | | | | | PST | | + + + + + | Respiratory Rate | 14 | 02/24/2014 12:00 PM | | | | | PST | | + + + + + | Oxygen Saturation | 92% | 02/24/2014 12:00 PM | | | | | PST | | + + + + + | Inhaled Oxygen | - | - | | | Concentration | | | | + + + + + | Weight | 97.5 kg (215 lb) | 02/24/2014 6:00 AM | | | | | PST | | + + + + + | Height | 165.1 cm (5' 5") | 02/24/2014 6:00 AM | | | | | PST | | + + + + + | Body Mass Index | 35.78 | 02/24/2014 6:00 AM | | | | | PST | | + + + + + documented in this encounter Discharge Instructions Instructions Tawanna Fernandez RN - 02/24/2014Formatting of this note might be different f rom the original. [facility] POST-OP INSTRUCTIONS: Arterio-Venous Fistula 1. Keep the operative arm clean and dry for 24 hours. 2. Remove bandage in 3-4 days. ( May replace if any wound drainage). 3. NO BP, IV or needles in the arm with the fistula 4. It is helpful to exercise the hand with a squeeze ball. 5. Resume normal activities 6. Resume normal diet. Anesthesia: After Your Surgery You ve just had surgery. During surgery, you received medication called anesthesia to bandar p you comfortable and pain-free. After surgery, you may experience some pain or nausea. This is normal. Here are some tips for feeling better and recovering after surgery. Stay on schedule with your medication. Going Home Your doctor or nurse will show you how to take care of yourself when you go home. He or she will also answer your questions. Have an adult family member or friend drive you home. For the first 24 hours after your surgery: Do not drive or use heavy equipment. Do not make important decisions or sign legal documents. Avoid alcohol. Have someone stay with you, if needed. He or she can watch for problems and help keep yo u safe. Be sure to keep all follow-up doctor s appointments. And rest after your procedure for as long as your doctor tells you to. Coping with Pain If you have pain after surgery, pain medication will help you feel better. Take it as direc wilmer, before pain becomes severe. Also, ask your doctor or pharmacist about other ways to con trol pain, such as with heat, ice, and relaxation. And follow any other instructions your madrid rgeon or nurse gives you. Tips for Taking Pain Medication To get the best relief possible, remember these points: Pain medications can upset your stomach. Taking them with a little food may help. Most pain relievers taken by mouth need at least 20 to 30 minutes to take effect. Taking medication on a schedule can help you remember to take it. Try to time your medic ation so that you can take it before beginning an activity, such as dressing, walking, or si tting down for dinner. Constipation is a common side effect of pain medications. Contact your doctor before reyes ing any medications like laxatives or stool softeners to help relieve constipation. Also ask about any dietary restrictions, because drinkinglots of fluids andeating foodslikef ruits and vegetables that are high in fiber can also help. Remember, don t take laxatives unless your surgeon has prescribed them. Mixing alcohol and pain medication can cause dizziness and slow your breathing. It can e ni be fatal. Don t drink alcohol while taking pain medication. Pain medication can slow your reflexes. Don t drive or operate machinery while taking pain medication. If your health care provider advises you to take acetaminophen, the generic name for Tyleno l and other brand-name pain relievers, to help relieve your pain, ask for a daily dose. Chante mber that acetaminophen or other pain relievers may interact with prescription medicines or other qeln-eek-swdamvn (OTC) drugs. The FDA recommends reading OTC medication labels careful ly to clearly understand the list of active ingredients, directions, and any precautions to help avoid taking too muchacetaminophen. If you have questions, ask your pharmacist or a [facility] care provider. Managing Nausea Some people have an upset stomach after surgery. This is often due to anesthesia, pain, liz n medications, or the stress of surgery. The following tips will help you manage nausea and get good nutrition as you recover. If you were on a special diet before surgery, ask your do ctor if you should follow it during recovery. These tips may help: Don t push yourself to eat. Your body will tell you what to eat and when. Start off with clear liquids and soup. They are easier to digest. Progress to semisolids (mashed potatoes, applesauce, and gelatin) as you feel ready. Slowly move to solid foods. Don t eat fatty, rich, or spicy foods at first. Don t force yourself to have three large meals a day. Instead, eat smaller amounts mor e often. Take pain medications with a small amount of solid food, such as crackers or toast to av oid nausea. Call Your Surgeon If You still have pain an hour after taking medication (it may not be strong enough). You feel too sleepy, dizzy, or groggy (medication may be too strong). You have side effects like nausea, vomiting, or skin changes (rash, itching, or hives). [id number] [employer]. [address] [place] [address], [place] [address]. All righ ts reserved. This information is [...] + + + +---------+ + + | cholecalciferol | Take 1,000 Units by | | 0 | | | | (VITAMIN D-3) 1,000 | mouth Daily. | | | | 5 | | units tablet | | | | | | [...] | 0 | | | | (SENSIPAR) 30 mg | Daily (with dinner). | | | | 5 | | tablet | | | | | | + + + +---------+ + + | doxercalciferol | Inject 1 mcg into | | 0 | | | | (HECTOROL) 2 mcg/mL | the vein Three times | | | | 5 | | injection | a week. | | | | | + + + +---------+ + + | Epoetin Jenna | 2,200 Units by IV | | 0 | | | | (EPOGEN IJ) | Push route Three | | | | 5 | | | times a week. | | | | | + + + +---------+ + + | furosemide (LASIX) | Take 1 tablet by | 60 | 4 | 01/25/20 | | | 80 mg tablet | mouth Daily. | tablet | | 14 | 5 | + + + +---------+ + + | | Take 1-2 tablets by | 20 | 0 | 02/25/20 | | | HYDROcodone-acetamin | mouth every 4 hours | tablet | | 14 | 5 | | ophen (NORCO) 5-325 | as needed for Pain. | | | | | | mg per tablet | | | | | | + + + +---------+ + + | Iron Sucrose | Inject 100 mg into | | 0 | | | | (VENOFER IV) | the vein Three times | | | | 5 | | | a week. | | | | | + + + +---------+ + + | renal multivitamin | Take 1 tablet by | 90 | 4 | 10/08/19 | | | (DIALYVITE, | mouth every evening. | tablet | | 14 | 5 | | VOL-CARE) TABS | | | | | | + + + +---------+ + + | sevelamer | Take 2,400 mg by | | 0 | | | | carbonate (RENVELA) | mouth 3 times daily | | | | 5 | | 800 mg tablet | (with meals). 3 | | | | | | | tablets with meals | | | | | | | and 2 tablets with | | | | | | | snacks | | | | | + + + +---------+ + + documented as of this encounter Plan of Treatment + +------+--------+ + + | Name | Type | Priori | Associated Diagnoses | Order Schedule | | | | ty | | | + +------+--------+ + + | ECG 12 lead | ECG | STAT | | One Time for 1 | | | | | | Occurrences starting | | | | | | 02/24/2014 until | | | | | | 02/24/2014 | + +------+--------+ + + | Basic Metabolic | Lab | STAT | | As Needed for 1 | | Panel | | | | Occurrences starting | | | | | | 02/24/2014 | + +------+--------+ + + documented as of this encounter Procedures + +--------+ + + + | Procedure Name | Priori | Date/Time | Associated Diagnosis | Comments | | | ty | | | | + +--------+ + + + | INSERTION AV FISTULA | | 02/24/2014 | End stage renal | | | | | 7:30 AM | disease (HCC) | | | | | PST | | | + +--------+ + + + | BASIC METABOLIC | Routin | 02/24/2014 | | Results for this | | PANEL | e | 6:59 AM | | procedure are in the | | | | PST | | results section. | + +--------+ + + + documented in this encounter Results Basic Metabolic Panel (02/24/2014 6:59 AM PST) + + + + + + | Component | Value | Ref Range | Performed | Pathologist | | | | | At | Signature | + + + + + + | Na | 134 (L) | 136 - 149 | [facility] | | | | | mmol/L | [facility] | | | | | | [facility] | | | | | | [facility] - | | | | | | LABORATORY | | + + + + + + | K | 4.3 | 3.5 - 5.1 | [facility] | | | | | mmol/L | [facility] | | | | | | [facility] | | | | | | C[facility] - | | | | | | LABORATORY | | + + + + + + | Cl | 104 | 98 - 109 mmol/L | [facility] | | | | | | [facility] | | | | | | [facility] | | | | | | C[facility] - | | | | | | LABORATORY | | + + + + + + | CO2 | 19 (L) | 24 - 31 mmol/L | [facility] | | | | | | [facility] | | | | | | [facility] | | | | | | C[facility] - | | | | | | LABORATORY | | + + + + + + | Anion Gap | 11 | 3 - 16 mmol/L | [facility] | | | | | | [facility] | | | | | | [facility] | | | | | | C[facility] - | | | | | | LABORATORY | | + + + + + + | Glucose | 94 | 70 - 109 mg/dL | [facility] | | | | | | [facility] | | | | | | MEDICAL | | | | | | CENTER - | | | | | | LABORATORY | | + + + + + + | BUN | 52 (H) | 7 - 18 mg/dL | [facility] | | | | | | [facility] | | | | | | [facility] | | | | | | CENTER - | | | | | | LABORATORY | | + + + + + + | Creatinine | 9.21 ()Comment: Alert | 0.60 - 1.30 | [facility] | | | | Value: Clinical Provider | mg/dL | [facility] | | | | notification at Nurses | | MEDICAL | | | | discretion. | | CENTER - | | | | | | LABORATORY | | + + + + + + | eGFR if not | Comment: GFR not | >=60 | [facility] | | | | calculated for this age | mL/min/1.73m2 | [facility] | | | [place] | (<18). | | MEDICAL | | | | | | CENTER - | | | | | | LABORATORY | | + + + + + + | Calcium | 8.8 | 8.3 - 10.5 | [facility] | | | | | mg/dL | [facility] | | | | | | MEDICAL | | | | | | CENTER - | | | | | | LABORATORY | | + + + + + + | BUN/Creatin | 5.6 | | [facility] | | | ine Ratio | | | [facility] | | | | | | MEDICAL | | | | | | CENTER - | | | | | | LABORATORY | | + + + + + + + + | Specimen | + + | Blood | + + + + + + + | Performing | Address | City/State/Zipcode | Phone Number | | Organization | | | | + + + + + | [facility] | [address] | [place] | [phone] | | [facility] | | [address] | | | - LABORATORY | | | | + + + + + | [facility] | [address] | [place], [place] | | | [facility] | | [id number] | | | - LABORATORY | | | | + + + + + documented in this encounter Visit Diagnoses + + | Diagnosis | + + | End stage renal disease (HCC) End stage renal disease | + + documented in this encounter Administered Medications + +--------+ +---------+------+ + | Medication Order | MAR | Action | Dose | Rate | Site | | | Action | Date | | | | + +--------+ +---------+------+ + | bacitracin injection PRN, | Given | 02/25/20 | 50,000 | | Surgical | | Starting 02/24/14 at 0816, | | 14 8:16 | Units | | Site | | Intra-op | | AM PST | | | | + +--------+ +---------+------+ + +---+---+ | | | +---+---+ + +-------+ +-------+---+ + | bupivacaine (MARCAINE) 0.25% | Given | 02/25/20 | 8 mLs | | Surgical | | injection PRN, Starting Mon | | 14 10:02 | | | Site | | 02/24/14 at 1002, Intra-op | | AM PST | | | | + +-------+ +-------+---+ + +---+---+ | | | +---+---+ + +-------+ +--------+---+---+ | fentaNYL injection 25-50 mcg | Given | 02/25/20 | 25 mcg | | | | 25-50 mcg, Intravenous, EVERY 15 | | 14 11:00 | | | | | MIN PRN, Pain, Give on direction | | AM PST | | | | | of physician, Starting Mon | | | | | | | 02/24/14 at 0620, For 4 doses, | | | | | | | Max total dose 100 mcg., Pre-op | | | | | | + +-------+ +--------+---+---+ +---+---+ | | | +---+---+ + +-------+ +--------+---+ + | heparin 1,000 units/mL | Given | 02/25/20 | 2,500 | | Surgical | | injection PRN, Starting Mon | | 14 8:16 | Units | | Site | | 02/24/14 at 0816, Intra-op | | AM PST | | | | + +-------+ +--------+---+ + +---+---+ | | | +---+---+ + +-------+ +-------+---+---+ | metoclopramide (REGLAN) 5 mg/mL | Given | 02/25/20 | 10 mg | | | | injection 10 mg 10 mg, | | 14 11:29 | | | | | Intravenous, Administer over 15 | | AM PST | | | | | Minutes, ONCE, 02/24/14 at | | | | | | | 1115, For 1 dose, Recovery/Phase | | | | | | | I | | | | | | + +-------+ +-------+---+---+ +---+---+ | | | +---+---+ + +-------+ +------+---+---+ | ondansetron (ZOFRAN) injection | Given | 02/25/20 | 4 mg | | | | 4 mg 4 mg, Intravenous, ONCE | | 14 11:03 | | | | | PRN, Nausea, Starting Mon | | AM PST | | | | | 02/24/14 at 0620, For 1 dose, For | | | | | | | IV doses greater than 8mg infuse | | | | | | | over 15 minutes, Pre-op | | | | | | + +-------+ +------+---+---+ +---+---+ | | | +---+---+ + +---------+ +----+---+---+ | sodium chloride 0.9% (NS) | New Bag | 02/25/20 | mL | | | | infusion at 10-100 mL/hr, | | 14 8:53 | | | | | Intravenous, CONTINUOUS, Starting | | AM PST | | | | | 02/24/14 at 0645, TKO. Use | | | | | | | this instead of LR if both are | | | | | | | ordered., Pre-op | | | | | | + +---------+ +----+---+---+ +---------+ +---+ +---+ | New Bag | 02/25/20 | | 50 mL/hr | | | | 14 6:55 | | | | | | AM PST | | | | +---------+ +---+ +---+ +---+---+ | | | +---+---+ documented in this encounter
--- OUTSIDE RECORDS SUMMARY | ~2019-07-14 | XMS | Encounter Summary ---
Demographics + + + | Address | [address] | | | [place] [address] | + + + | Home Phone [...] + + + | Author | [facility] | + + + | Organization | [facility] | + + + | Address | Unknown | + + + | Phone | Unavailable | + + + Support + + + + + | Name | Relationship | Address | Phone | + + + + + | Cory [place] | ECON | [address] | | | | | [place] [address] | | + + + + + | Thania Mallory | ECON | [address] | | | | | [place] [address] | | + + + + + | Deidra Wel[place] | ECON | [address] | | | | | [place] | | | | | [address] | | + + + + + Care Team Providers + +------+ + | Care Orchestra Teacher Name | Role | Phone | + +------+ + | Jonathan Alonso MD | PCP | | + +------+ + Reason for Visit + + + | Reason | Comments | + + + | Laboratory Test | [facility] | | Requested | | + + + Encounter Details +--------+ + + + + | Date | Type | Department | Care Team | Description | +--------+ + + + + | 11/25/ | Telephone | Pediatric | Sudhakar Joy | Laboratory Test | | 2015 | | Nephrology at | MD Emanuel [address] | Requested ([facility]) | | | | Alexander | Elias Elizondo | | | | | [facility] | [place], [place] | | | | | [address] | [address] | | | | | Alexander | [phone] | | | | | [facility], | | | | | | [address] [place] [address] | | | | | | [place], [place] | | | | | | [address] | | | | | | [phone] | | | +--------+ + + + [...] Denise | | | | | | [place] | | | | | | [address] | | | | | | [phone] | | | | | | | | +--------+ + + + + documented as of this encounter Visit Diagnoses Not on filedocumented in this encounter"
--- OUTSIDE RECORDS SUMMARY | ~2019-07-14 | XMS | Encounter Summary ---
Demographics + + + | Address | [address] | | | [place] [address] | + + + | Home Phone [...] | | | | | [place] [address] | | + + + + + | Thania Mallory | ECON | [address] | | | | | [place] [address] | | + + + + + | Deidra Weldon | ECON | [address] | | | | | [place] | | | | | [address] | | + + + + + Care Team Providers + +------+ + | Care Billet Cutter Name | Role | Phone | + [...] Shun | | | | | [address] | [facility] | | | | | [place], [place] | [place] [address] | | | | | [address] | [phone] | | | | | | | [...] of this encounter Progress Notes Juan David Batres, PharmD - 12/26/2012 9:15 AM PDTFormatting of this note might be different fro m the original. 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 The patient s most recent medication information was obtained from patient and her family Pharmacy Preferences: [id number] [place] [address] Updated Outpatient Medications: Current Medication List Name [...] questions regarding this information contact pharmacy, pager #[phone] Thank you, Juan David Batres Pager [phone] signed by Juan David Batres [facility] at 12/26/2012 9:18 AM PDTdocumented in this encounter Plan of Treatment +--------+ + + + + | Date | Type | Specialty | Care Team | Description | +--------+ + + + + | 05/04/ | Hospital | Adult Acute Care | El Starr MD | | | 2022 | Encounter | | [address] | | | | | | [place] | | | | | | [address] | | | | | | [phone] | | | | | | | | +--------+ + + + + documented as of this encounter Visit Diagnoses Not on filedocumented in this encounter"
--- OUTSIDE RECORDS SUMMARY | ~2019-07-14 | XMS | Encounter Summary ---
Demographics + + + | Address | [address] | | | [place] [address] | + + + | Home Phone [...] | | | | | [place] [address] | | + + + + + | Thania Mallory | ECON | [address] | | | | | [place] [address] | | + + + + + | Deidra Weldon | ECON | [address] | | | | | [place] | | | | | [address] | | + + + + + Care Team Providers + +------+ + | Care Exhaust And Muffler Repairer Name | Role | Phone | [...] Shun | | | | | at [facility] | [facility] | | | | | [address] | [place] [address] | | | | | [address] [facility] | | | | | | [place], [facility] floor | | | | | | [place], [place] | | | | | | [address] | | | | | | [phone] | | | +--------+ + + + [...] | Encounter | | [address] | | | | | | [place], [place] | | | | | | [address] | | | | | | [phone] | | | | | | | [...] | e | 11:49 AM | MEDICARE [phone] | procedure are in the | | [...] view image for the detailed interpretation from [facility] results. | CARDIOLOGY | + + + + + | Procedure Note | + + | Interface, Cardiology Results - 12/21/2012 9:38 AM PDT Please click on view image | | for the detailed interpretation from [facility] results. 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
--- OUTSIDE RECORDS SUMMARY | ~2019-07-14 | XMS | Encounter Summary ---
Demographics + + + | Address | [address] | | | [place] [address] | + + + | Home Phone [...] | Author | [facility] | | | and Josephana | + + + | Organization | [facility] | | | and Josephana [...] Team Providers + +------+ + | Care Possum Trapper Name | Role | Phone | + +------+ + | Tien Nicholson MD | PCP | | + +------+ + Encounter Details +--------+ + + + + | Date | Type | Department | Care Team | Description | +--------+ + + + + | 08/20/ | Hospital | [facility] | Ramón Dunn | Non-cardiogenic | | 2019 - | Encounter | [facility] | MD Juan Alberto [address] | pulmonary edema | | | | CARE FLOOR [address] [place], [place] | | | 08/23/ | | [address] | [address] | | | 2019 | | [place], [place] | | | | | | [address] | | | | | | [phone] | | | +--------+ + + + [...] + + + | Blood Pressure | 121/66 | 08/23/2018 11:55 AM | | | | | PDT | | + + + + + | Pulse | 77 | 08/23/2018 11:55 AM | | | | | PDT | | + + + + + | Temperature | 36.4 C (97.5 F) | 08/23/2018 11:55 AM | | | | | PDT | | + + + + + | Respiratory Rate | 15 | 08/23/2018 11:55 AM | | | | | PDT | | + + + + + | Oxygen Saturation | - | - | | + + + + + | Inhaled Oxygen | - | - | | | Concentration | | | | + + + + + | Weight | 66.1 kg (145 lb 12.8 | 08/23/2018 11:55 AM | | | | oz) | PDT | | + + + + + | Height | 170.2 cm (5' 7") | 08/23/2018 11:55 AM | | | | | PDT | | + + + + + | Body Mass Index | 22.84 | 08/23/2018 11:55 AM | | | | | PDT | | + + + + + documented in this encounter Discharge Summaries Paty Kline DO - 08/23/2018 8:19 AM PDTFormatting of this note might be different fr om the original. Discharge Summaries by Paty Kline DO at 08/23/18818 Author: Paty Kline DO Service: Hospitalist Author Type: Physician Filed: 08/23/18 1300 Date of Service: 08/23/18818 Status: Signed Electrical Logger: Paty Kline DO (Physician) Patient: Dara Weldon : 1995 Date of Admission: 08/20/2018 Date of Discharge: 08/23/2018 Treatment Team: Consulting Physician: Cliff Duarte MD Admitting Provider: Ramón Dunn MD Discharging Provider: Paty Kline DO Discharge Diagnoses: Principal Problem: Non-cardiogenic pulmonary edema Active Problems: HSP (Henoch Schonlein purpura) ESRD on hemodialysis (HCC) Hyperkalemia Moderate to severe pulmonary hypertension (HCC) Chronic 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) Dilated cardiomyopathy (HCC) Acute hypoxemic respiratory failure (HCC) Pleural effusion Chronic right-sided heart failure (HCC) Anemia in ESRD (end-stage renal disease) (HCC) Resolved Problems: * No resolved hospital problems. * Procedures Performed: Chief Complaint: No chief complaint on file. Hospital Course: Dara Weldon is a 23 y.o. female who was admitted on 08/20/2018 with flash pulmonary edema after thoracentesis. Ms. Weldon is a 23 y.o.femalewith significant past medical history of end-stage renal disease on hemodialysis every Monday and Monday who follows with Dr. Anguiano. Her o ther problems are Henoch-Schonlein Purpura, recurrent bilateral pleural effusions requiring pediatric thoracentesis, combined systolic and diastolic congestive heart failure with eject ion fraction of 20 to 25% per echocardiogram of May 2018. She presented to the emergency d epartment of [facility] in [place] on 08/21 for dyspnea and underwent right t horacentesis with removal of 2.5L of fluid. Patient was sent home after the procedure. Muriel rtly thereafter patient became very short of breath and started having pinkish frothy sputum . Patient also developed right-sided chest pain over area of thoracentesis. She returned t o emergency department of [facility]. Patient was tachycardic and short of b reath but was saturating well on room air. Chest x-ray showed pulmonary edema of right bridgette g but left lung was reportedly normal. Patient was transferred to [facility] for acute hypoxic respiratory failure and acute hemodialysi s. Nephrology was consulted and she underwent HD on 08/21 and 08/22. CXR showed improvement in pleural effusion. She continued to require oxygen and home O2 evaluation was completed. She was discharged on 08/23, however she was successfully weaned off oxygen prior to discharge. Discharge Exam and Data: Vital Signs: BP 120/75 (BP Location: Right upper arm) | Pulse 77 | Temp 98.4 F (36.9 C) (Oral) | Resp 14 | Ht 1.702 m (5' 7") | Wt 66.1 kg (145 lb 12.8 oz) | SpO2 93% | ? N o | BMI 22.84 kg/m General: Alert, no distress, lying in bed Eyes: PERRL, no scleral icterus, no dischage ENT: External ears normal, Nose normal, oropharynx moist no exudates Neck: Supple, no thyromegaly Cardiovascular: Regular rate and rhythm, no murmurs, no rub Respiratory: No respiratory distress, clear bilaterally, no wheezing Abdomen: Soft, non-tender, non-distended, active bowel sounds Back: No tenderness or deformity Skin: Warm and dry, no rashes Extremities: No edema, no joint deformities Neuro: No gross motor/sensory deficit. CN grossly intact. Alert and oriented to person, pl [place], time. Recent Labs Recent Labs Lab 08/21/18 0502 WBC 7.52 HGB 11.7 HCT 34.6 PLT 185 Recent Labs Lab 08/22/18 0702 NA 139 K 5.1* CL 101 CO2 28 BUN 31* CREATININE 5.62* No results for input(s): INR in the last 168 hours. Recent Radiology Results X-ray Chest Frontal And Lateral: 08/21/2018 1. Persistent infiltrate/atelectasis in the right mid to lower lung zone extending through the upper, middle, and lower lobes, with small right effusion and elevation right hemidiaphr agm. Signed by: Eliza Bustos Shawn Sign Date/Time: 08/21/2018 7:44 AM CXR 2 view 08/22/18: FINDINGS: There is mild enlargement of the heart. No mediastinal shift or widening is present. There is no pneumothorax. The pulmonary markings are normal in caliber. Improved aeration of the right lung is noted with some residual mild scarring and or atelectasis. There is a small right pleural effusion. There is no new airspace consolidation. IMPRESSION: 1. Improved aeration of the right lung with reduction of atelectasis and consolidation. 2. A small right pleural effusion is noted. Signed by: Eliza Khan Richard Sign Date/Time: 08/22/2018 10:31 PM No discharge procedures on file. Outstanding Issues: None Discharge Information: Follow up: Tien Nicholson MD [address] [place] [id number] Medication List CHANGE how you take these medications metoprolol 50 MG 24 hr tablet QTY: 30 tablet Refills: 2 Commonly known as: TOPROL-XL Take 1 tablet by mouth daily. What changed: when to take this sevelamer 800 MG tablet QTY: 180 tablet Refills: 2 Commonly known as: RENVELA Take 2 tablets by mouth 3 (three) times daily with meals. What changed: how much to take CONTINUE taking these medications clopidogrel 75 MG tablet Refills: 0 Commonly known as: PLAVIX ipratropium-albuterol 0.5-2.5 mg/3mL Refills: 0 Commonly known as: DUO-NEB ondansetron 4 MG tablet Refills: 0 Commonly known as: ZOFRAN pantoprazole 40 MG tablet Refills: 0 Commonly known as: PROTONIX promethazine 25 MG tablet QTY: 30 tablet Refills: 0 Commonly known as: PHENERGAN Take 1 tablet by mouth every 6 (six) hours as needed for Nausea or Vomiting (non-resposive to zofran). valsartan 40 MG tablet QTY: 30 tablet Refills: 11 Commonly known as: DIOVAN Take 1 tablet by mouth daily. You might also be taking other medications not listed above. If you have questions about an y of your other medications, talk to the person who prescribed them or your Primary Care Pro vider. STOP taking these medications predniSONE 10 MG tablet Commonly known as: DELTASONE Disposition: Home Condition: Fair Code Status: Full Code Discharge took 45 minutes, to include final examination, discussion of admission, and prepa ration of prescriptions, instructions for on-going care, follow-up and documentation of disc harge summary. Paty Kline 8:23 AM documented in this encounter Medications at Time [...] | | | | | renal disease) ([facility]) | protocol | | | | | [...] documented as of this encounter Progress Notes Conversion Transaction, Provider Unknown - 08/23/2018 1:06 PM PDTFormatting of this note m ight be different from the original. Nurse Progress Note by Mitzy Schilling RN at 08/23/18 130 Author: Mitzy Schilling RN Service: (none) Author Type: Registered Nurse Filed: 08/23/181305 Date of Service: 08/23/181305 Status: Signed Electrical Logger: Mitzy Schilling RN (Registered Nurse) Pt A&Ox4, VSS at this time. Discharge teaching complete. Questions and concerns addressed. IV removed, catheter intact. Personal belongings and prescriptions sent with pt. Pt to be es corted to private vehicle via wheelchair. Chart review complete. Mitzy Schilling RN onver arturo Transaction, Provider Unknown - 08/23/2018 11:44 AM PDT Case Management by Patria Norman RN at 08/23/18 1144 Author: Patria Norman RN Service: (none) Author Type: Registered Nurse Filed: 08/23/18 1146 Date of Service: 08/23/18 1144 Status: Signed Electrical Logger: Patria Norman RN (Registered Nurse) CM placed call to Pts PCP and they will contact pt to schedule follow up appointment as gopal n as possible. CM placed call to [facility] to attempt to move pts appointment with Dr Alexander to a closer date, they will now see her in September rather November and AVS will be up dated. onver arturo Transaction, Provider Unknown - 08/23/2018 11:37 AM PDT Nurse Progress Note by Mitzy Schilling RN at 08/23/18 1137 Author: Mitzy Schilling RN Service: (none) Author Type: Registered Nurse Filed: 08/23/181136 Date of Service: 08/23/181136 Status: Signed Electrical Logger: Mitzy Schilling RN (Registered Nurse) Resumed care from ABRIL Carranza. Agree with assessments thus far. Will continue to monitor. Mitzy Schilling RN onver arturo Transaction, Provider Unknown - 08/23/2018 2:34 AM PDT Nurse Progress Note by Hannah Madrigal RN at 08/23/184 Author: Hannah Madrigal RN Service: (none) Author Type: Registered Nurse Filed: 08/23/18 0530 Date of Service: 08/23/18233 Status: Signed Electrical Logger: Hannah Madrigal RN (Registered Nurse) VSS, pt on 4-5 L NC due to de-satting especially after IV Dilaudid given. Pt requesting Di laudid as soon as available, see MAR. Repeat chest x-ray showed improvement of atelectasis. No other changes from shift assessment. End of shift review and 24 hour chart check comple wilmer. Hannah Madrigal RN onver arturo Transaction, Provider Unknown - 08/22/2018 6:24 PM PDT Nurse Progress Note by Paco Macedo RN at 08/22/181823 Author: Paco Macedo RN Service: (none) Author Type: Registered Nurse Filed: 08/22/181827 Date of Service: 08/22/181823 Status: Signed Electrical Logger: Paco Macedo RN (Registered Nurse) Patient is A&OX4, VSS, c/o pain please see MAR. Patient is IND in the room. Patient is to c omplete a chest xray and home O2 eval prior to discharge tomorrow. End of shift review compl ete. PACO MACEDO RN onver arturo Transaction, Provider Unknown - 08/22/2018 6:01 PM PDT Progress Notes by Brent Greenberg at 08/22/181800 Author: Brent Greenberg Service: (none) Author Type: Stuffer Filed: 08/22/181808 Date of Service: 08/22/181800 Status: Signed Electrical Logger: Brent Greenberg (Stuffer) oracle brm developer appreciated. Pt sitting up in bed. Pt said her best friend recently & she' s having a very hard time. Chp provided compassionate presence & listening. Pt described fee ling depressed, at that stage of grief. Chp affirmed this as normal, but still very hard. Pt explained closeness of relationship w/best friend, bf's young kids, depth of loss she feels . Pt also described other friends who have been cruel to pt since bf's . Chp explored p ossible support resources w/pt. Pt said she's wanting to find a grief support group in [facility] where she lives. Chp affirmed this as an excellent idea. [facility] assured pt of continuing g ood thoughts for pt. Pt thanked [facility] for visit. Chaplain Brent Greenberg pPaty samson DO - 08/22/2018 2:55 PM PDT Progress Notes by Paty Kline DO at 08/22/18 4142 Author: Paty Kline DO Service: Hospitalist Author Type: Physician Filed: 08/22/18 2855 Date of Service: 08/22/18 7730 Status: Addendum Electrical Logger: Paty Kline DO (Physician) Related Notes: Original Note by Paty Kline DO (Physician) filed at 08/22/18 1780 [facility] Service: Hospitalist Progress Note Hospital Day: LOS: 2 days Post-Op Day: * No surgery found * SUBJECTIVE Per Dr. Dunn H&P: "The patient is 23 y.o. female with significant past medical history of end-stage renal dis ease on hemodialysis every Monday and Monday and sees Dr. Anguiano. Her other proble ms are Henoch-Schonlein Purpura, recurrent bilateral pleural effusions requiring pediatric t horacentesis, combined systolic and diastolic congestive heart failure with ejection fractio n of 20 to 25% per echocardiogram of May 2018 presented to emergency department of [facility] in [place] this morning and underwent right thoracentesis. Patient was sent home after the procedure. However patient became very short of breath and started havi ng pinkish frothy sputum. Patient also developed right-sided chest pain over area of thorac entesis. Hence she returned to emergency department of [facility]. Patient w as tachycardic and short of breath but was saturating well on room air. Chest x-ray showed pulmonary edema of right lung but left lung was normal as per ED physician." Patient was transferred to [facility] for monitoring as she will need HD inpatient. Events Overnight: Patient did well overnight. Remains on supplemental oxygen. Tolerated HD yesterday and agai n this AM. Still notes severe lung/chest pain. Will repeat CXR. Denies fevers, chills, n/v, abd pain, headache, sob, or cough. Scheduled Medications clopidogrel 75 mg Oral Daily metoclopramide 10 mg Intravenous Once metoprolol 50 mg Oral Nightly pantoprazole 40 mg Oral QAM AC sevelamer 2,400 mg Oral TID WC sodium chloride (PF) 10 mL Intravenous Q8H valsartan 40 mg Oral Daily Continuous Infusions PRN Medications acetaminophen OR acetaminophen, albumin human, HYDROmorphone, ondansetron OR ondans etron, polyethylene glycol, promethazine, zolpidem OBJECTIVE Vital Signs: BP 111/59 (BP Location: Right upper arm) | Pulse 73 | Temp 98.5 F (36.9 C) (Oral) | Resp 16 | Ht 1.702 m (5' 7") | Wt 66.7 kg (147 lb 0.8 oz) | SpO2 94% | ? No | BMI 23.03 kg/m Constitutional: She is oriented to person, place, and time. She appears well-developed and well-nourished. No distress. HENT: Head: Normocephalic. Mouth/Throat: No oropharyngeal exudate. Eyes: Pupils are equal, round, and reactive to light. No scleral icterus. Neck: Neck supple. No JVD present. Cardiovascular: Regular rhythm and intact distal pulses. Exam reveals no gallop and no fri ction rub. No murmur heard. Pulmonary/Chest: Effort normal. No respiratory distress. She has no wheezes. Absent sounds in right lung base, crackles in mid lung field. Abdomina/Gl: Soft. Bowel sounds are normal. She exhibits no distension and no mass. There i s no tenderness. There is no rebound and no guarding. No hernia. Musculoskeletal: She exhibits no edema, tenderness or deformity. Neurological: She is alert and oriented to person, place, and time. No cranial nerve defici t. Skin: Skin is warm and dry. No rash noted. She is not diaphoretic. No erythema. Small bruises over right leg. Psychiatric: She has a normal mood and affect. Her behavior is normal. Judgment and thought content normal. DATA CBC: Lab Results Component Value Date WBC 7.52 08/21/2018 RBC 3.10 (L) 08/21/2018 HGB 11.7 08/21/2018 HCT 34.6 08/21/2018 MCV 111.4 (H) 08/21/2018 MCH 37.8 (H) 08/21/2018 MCHC 33.9 08/21/2018 RDW 66.1 (H) 08/21/2018 PLT 185 08/21/2018 MPV 9.5 08/21/2018 DIFFTYPE AUTOMATED 08/21/2018 BMP: Lab Results Component Value Date NA 139 08/22/2018 K 5.1 (H) 08/22/2018 CL 101 08/22/2018 CO2 28 08/22/2018 ANIONGAP 15 08/22/2018 GLUF 107 (H) 08/22/2018 BUN 31 (H) 08/22/2018 CREATININE 5.62 (H) 08/22/2018 BCR 6 08/22/2018 CA 9.3 08/22/2018 EGFR 9 (L) 08/22/2018 Magnesium: Lab Results Component Value Date MG 2.8 (H) 08/21/2018 Phosphorus: Lab Results Component Value Date PHOS 7.3 (H) 08/21/2018 PROBLEM LIST Principal Problem: Non-cardiogenic pulmonary edema Active Problems: HSP (Henoch Schonlein purpura) ESRD on hemodialysis (HCC) Hyperkalemia Moderate to severe pulmonary hypertension (HCC) Chronic 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) Dilated cardiomyopathy (HCC) Acute hypoxemic respiratory failure (HCC) Pleural effusion Chronic right-sided heart failure (HCC) Anemia in ESRD (end-stage renal disease) (HCC) ASSESSMENT & PLAN Non-cardiogenic pulmonary edema due to reexpansion lung injury after thoracentesis - low suspicion for HF exacerbation - Continues to have severe chest pain, will repeat CXR End-stage renal disease. She receives hemodialysis every Monday, Monday and Monday. - Dr. Duarte consulted, HD completed 08/21, 08/22 Recurrent bilateral thoracentesis. Likely due to severe congestive heart failure. Patient has had thoracentesis 3 times on the right side and twice on the left side. We will try to avoid if possible. Severe combined systolic and diastolic congestive heart failure. She is on valsartan, meto prolol and will continue both. Patient also gets hemodialysis 3 times a week. No sign of f luid overload at this stage. Disposition: Inpatient. Likely discharge tomorrow. Code Status: Full Code Patybaudilio Kline DO 08/22/2018 onversion Transact ion, Provider Unknown - 08/22/2018 9:29 AM PDTFormatting of this note might be different fr om the original. Case Management by Jessica Martell RN at 08/22/18928 Author: Jessica Martell RN Service: (none) Author Type: Registered Nurse Filed: 08/22/18932 Date of Service: 08/22/18928 Status: Signed Electrical Logger: Jessica Martell RN (Registered Nurse) 08/22/18922 Discharge Planning Evaluation Admitting Diagnosis Non-cardiogenic pulmonary edema Readmission No Living Arrangements Alone Support Systems Friends/neighbors;Family members Type of Residence Private residence House type Apartment Bathrooms on 1st Floor 1-Full Independent with ADL's Yes Independent with Mobility Yes Home Care Services No Caregiver after Discharge No Mental Status Oriented Prior functional status independent Power of Ethylbenzene Oxidizer No Anticipated Discharge Plan Post Acute Care Needs None at this time Plan communicated to patient/family Yes Resources Financial concerns Comment (needs met but uses food bank and family/neighbors assist) Transportation issues No (friends assist w/transport to HD and appointments) Patient/Family concerns No Prescription Plan Yes Name of Pharmacy [facility] [place], [place] Previous home health equipment No Vascular access device Yes Vascular access type Hemodialysis Ostomy/Drains/Appliances No Anticipated Disposition Facility Type Home Medicare Important Message (ADÁN) Not applicable Met with pt, explained CM and discussed discharge planning. Pt is a 23 y.o., female who mateus es alone in a one level apartment. She states she has good support from friends and neighbo rs who also assist her with transportation to appointments. Pt states her mother and sister are available to assist as needed but don't live in town. Pt's needs are met but she state s she uses the food bank and her friends and family occasionally assist with supplying food. Pt denies safety concerns and states she uses hemodialysis at [facility] on Mon, Wed, Fri but denies using any other outpatient services. CM will follow and assist with discharge planni ng and resources as needed. Patient's PCP is: TIEN NICHOLSON Patient's insurance: Medicare, Medicaid Coverage concerns: no Medication coverage/concerns: no Rx Bedside Delivery: YES Community resources utilized / needed: no Assistance in transportation: no Identification of any specific education / training: no Barriers to Discharge / Alternative housing needed: no Anticipated DCP: home, friend to transport JESSICA MARTELL onver arturo Transaction, Provider Unknown - 08/22/2018 4:34 AM PDT Nurse Progress Note by Jaymie Tafoya RN at 08/22/18433 Author: Jaymie Tafoya RN Service: (none) Author Type: Registered Nurse Filed: 08/22/18435 Date of Service: 08/22/18433 Status: Signed Electrical Logger: Jaymie Tafoya RN (Registered Nurse) Pt currently sleeping. Vital signs stable. Pt remains on 1-2 L NC. Otherwise no acute mims es from previous assessment. Medicated for pain Q3 hours with IV Dilaudid per patient reques t. IV zofran and PO phenergan given for nausea. Pt visualized hourly. Will continue to monit or. Chart check complete. onver arturo Transaction, Provider Unknown - 08/21/2018 6:29 PM PDT Nurse Progress Note by Luz Pablo RN at 08/21/181828 Author: Luz Pablo RN Service: (none) Author Type: Registered Nurse Filed: 08/21/18 183 Date of Service: 08/21/181828 Status: Signed Electrical Logger: Luz Pablo RN (Registered Nurse) Complains of rib/upper abdomen pain. Medicated, pain improved. Ambulating in room. HD today , 2.7L off. HD in a.m. At 0600. End of shift review complete. Paty Godinez DO - 08/21/2018 7:24 AM PDT Progress Notes by Paty Kline DO at 08/21/18 2158 Author: Paty Kline DO Service: Hospitalist Author Type: Physician Filed: 08/21/18 9395 Date of Service: 08/21/18723 Status: Signed Electrical Logger: Paty Kline DO (Physician) [facility] Service: Hospitalist Progress Note Hospital Day: LOS: 1 day Post-Op Day: * No surgery found * SUBJECTIVE Per Dr. Dunn H&P: "The patient is 23 y.o. female with significant past medical history of end-stage renal dis ease on hemodialysis every Monday and Monday and sees Dr. Anguiano. Her other proble ms are Henoch-Schonlein Purpura, recurrent bilateral pleural effusions requiring pediatric t horacentesis, combined systolic and diastolic congestive heart failure with ejection fractio n of 20 to 25% per echocardiogram of May 2018 presented to emergency department of [facility] in [place] this morning and underwent right thoracentesis. Patient was sent home after the procedure. However patient became very short of breath and started havi ng pinkish frothy sputum. Patient also developed right-sided chest pain over area of thorac entesis. Hence she returned to emergency department of [facility]. Patient w as tachycardic and short of breath but was saturating well on room air. Chest x-ray showed pulmonary edema of right lung but left lung was normal as per ED physician." Patient was transferred to [facility] for monitoring as she will need HD inpatient. Events Overnight: Patient did well overnight. Remains on supplemental oxygen. No respiratory distress. Vitals stable. Pending HD today. CXR appears improved. Notes right sided chest pain. Denies fevers , chills, n/v, abd pain, headache, sob, or cough. Scheduled Medications clopidogrel 75 mg Oral Daily metoprolol 50 mg Oral Nightly pantoprazole 40 mg Oral QAM AC sevelamer 2,400 mg Oral TID WC sodium chloride (PF) 10 mL Intravenous Q8H valsartan 40 mg Oral Daily Continuous Infusions PRN Medications acetaminophen OR acetaminophen, ondansetron OR ondansetron, polyethylene glycol, pr omethazine, zolpidem OBJECTIVE Vital Signs: BP 116/73 (BP Location: Right upper arm) | Pulse 79 | Temp 97.5 F (36.4 C) (Oral) | Resp 18 | Ht 1.702 m (5' 7") | Wt 70 kg (154 lb 6.4 oz) | SpO2 91% | ? No | BMI 24.18 kg/m Constitutional: She is oriented to person, place, and time. She appears well-developed and well-nourished. No distress. HENT: Head: Normocephalic. Mouth/Throat: No oropharyngeal exudate. Eyes: Pupils are equal, round, and reactive to light. No scleral icterus. Neck: Neck supple. No JVD present. Cardiovascular: Regular rhythm and intact distal pulses. Exam reveals no gallop and no fri ction rub. No murmur heard. Pulmonary/Chest: Effort normal. No respiratory distress. She has no wheezes. Absent sounds in right lung base, crackles in mid lung field. Abdomina/Gl: Soft. Bowel sounds are normal. She exhibits no distension and no mass. There i s no tenderness. There is no rebound and no guarding. No hernia. Musculoskeletal: She exhibits no edema, tenderness or deformity. Neurological: She is alert and oriented to person, place, and time. No cranial nerve defici t. Skin: Skin is warm and dry. No rash noted. She is not diaphoretic. No erythema. Small bruises over right leg. Psychiatric: She has a normal mood and affect. Her behavior is normal. Judgment and thought content normal. DATA CBC: Lab Results Component Value Date WBC 7.52 08/21/2018 RBC 3.10 (L) 08/21/2018 HGB 11.7 08/21/2018 HCT 34.6 08/21/2018 MCV 111.4 (H) 08/21/2018 MCH 37.8 (H) 08/21/2018 MCHC 33.9 08/21/2018 RDW 66.1 (H) 08/21/2018 PLT 185 08/21/2018 MPV 9.5 08/21/2018 DIFFTYPE AUTOMATED 08/21/2018 BMP: Lab Results Component Value Date NA 138 08/21/2018 K 5.4 (H) 08/21/2018 CL 103 08/21/2018 CO2 22 (L) 08/21/2018 ANIONGAP 18 08/21/2018 GLUF 97 08/21/2018 BUN 79 (H) 08/21/2018 CREATININE 9.6 (H) 08/21/2018 BCR 8 08/21/2018 CA 9.1 08/21/2018 EGFR 5 (L) 08/21/2018 Magnesium: Lab Results Component Value Date MG 2.8 (H) 08/21/2018 Phosphorus: Lab Results Component Value Date PHOS 7.3 (H) 08/21/2018 PROBLEM LIST Principal Problem: Non-cardiogenic pulmonary edema Active Problems: HSP (Henoch Schonlein purpura) ESRD on hemodialysis (HCC) Moderate to severe pulmonary hypertension (HCC) Chronic 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) Pleural effusion ASSESSMENT & PLAN Non-cardiogenic pulmonary edema due to reexpansion lung injury after thoracentesis - low suspicion for HF exacerbation - CXR is stable, known elevation in right hemidiaphragm End-stage renal disease. She receives hemodialysis every Monday, Monday and Monday. - Dr. Duarte consulted, plan for HD today Recurrent bilateral thoracentesis. Likely due to severe congestive heart failure. Patient has had thoracentesis 3 times on the right side and twice on the left side. We will try to avoid if possible. Severe combined systolic and diastolic congestive heart failure. She is on valsartan, meto prolol and will continue both. Patient also gets hemodialysis 3 times a week. No sign of f luid overload at this stage. Disposition: Inpatient. Likely discharge tomorrow. Code Status: Full Code Paty Kline DO 08/21/2018 onversion Transact ion, Provider Unknown - 08/21/2018 5:04 AM PDTFormatting of this note might be different fr om the original. Nurse Progress Note by Anahy Springer RN at 08/21/18 2224 Author: Anahy Springer RN Service: (none) Author Type: Registered Nurse Filed: 08/21/18 3236 Date of Service: 08/21/18 6554 Status: Addendum Electrical Logger: Anahy Springer RN (Registered Nurse) Related Notes: Original Note by Anahy Springer RN (Registered Nurse) filed at 08/21/18 2724 VSS. Pt c/o pain x2, pt medicated w/PRN pain meds per MAY, relief noted, and appears to be resting comfortably at this time. No acute changes from previous shift. Bed in low locked position. Call light within reach. End of shift review completed by this RN. Anahy Springer, RN onver arturo Oakesaction, Provider Unknown - 08/20/2018 7:02 PM PDT Progress Notes by Kacy Moody RPH at 08/20/181901 Author: Kacy Moody RPH Service: Pharmacy Author Type: Pharmacist Filed: 08/20/181901 Date of Service: 08/20/181901 Status: Signed Electrical Logger: Kacy Moody RPH (Pharmacist) Clinical Pharmacy Note: Renal Monitoring Serum creatinine: 8.68 mg/dL (H) 08/20/181742 Estimated creatinine clearance: 9.9 mL/min (A) Pharmacy dosing for renal function per Dr. Dunn Currently there are no medications needing to be adjusted. Pharmacy will continue to monito r for changes in medication orders and in renal function and adjust accordingly. Kacy Moody Pharmacist 08/20/2018 7:02 PM docume nted in this encounter Plan of Treatment Not on filedocumented as of this encounter Procedures + +--------+ + + + | Procedure Name | Priori | Date/Time | Associated Diagnosis | Comments | | | ty | | | | + +--------+ + + + | XR CHEST 2 VIEWS | Routin | 08/22/2018 | | Results for this | | | e | 7:06 PM | | procedure are in the | | | | PDT | | results section. | + +--------+ + + + | BASIC METABOLIC | Routin | 08/22/2018 | | Results for this | | PANEL | e | 7:02 AM | | procedure are in the | | | | PDT | | results section. | + +--------+ + + + | XR CHEST 2 VIEWS | Routin | 08/21/2018 | | Results for this | | | e | 7:27 AM | | procedure are in the | | | | PDT | | results section. | + +--------+ + + + | EXTERNAL LAB: CBC | Routin | 08/21/2018 | | Results for this | | | e | 5:02 AM | | procedure are in the | | | | PDT | | results section. | + +--------+ + + + | PHOSPHORUS | Routin | 08/21/2018 | | Results for this | | | e | 5:02 AM | | procedure are in the | | | | PDT | | results section. | + +--------+ + + + | MAGNESIUM | Routin | 08/21/2018 | | Results for this | | | e | 5:02 AM | | procedure are in the | | | | PDT | | results section. | + +--------+ + + + | BASIC METABOLIC | Routin | 08/21/2018 | | Results for this | | PANEL | e | 5:02 AM | | procedure are in the | | | | PDT | | results section. | + +--------+ + + + | CBC NO DIFFERENTIAL | Routin | 08/20/2018 | | Results for this | | | e | 5:44 PM | | procedure are in the | | | | PDT | | results section. | + +--------+ + + + | RENAL FUNCTION PANEL | Routin | 08/20/2018 | | Results for this | | | e | 5:43 PM | | procedure are in the | | | | PDT | | results section. | + +--------+ + + + documented in this encounter Results XR Chest 2 Vws (08/22/2018 7:06 PM PDT) + + | Specimen | + + | | + + + + + | Impressions | Performed At | + + + | 1. Improved aeration of the right lung with reduction of atelectasis | | | and consolidation. 2. A small right pleural effusion is noted. | | | Signed by: Eliza Khan, Lee Sign Date/Time: 08/22/2018 10:31 PM | | + + + + + + | Narrative | Performed At | + + + | CHEST TWO VIEWS CLINICAL INFORMATION: Respiratory failure | | | COMPARISON: XR CHEST 2 VIEW FRONTAL AND LATERAL (08/21/2018); XR CHEST | | | 1 VIEW (07/21/2018); US THORACENTESIS WITH IMAGING GUIDANCE | | | (07/21/2018); FINDINGS: There is mild enlargement of the heart. No | | | mediastinal shift or widening is present. There is no pneumothorax. | | | The pulmonary markings are normal in caliber. Improved aeration | | | of the right lung is noted with some residual mild scarring and or | | | atelectasis. There is a small right pleural effusion. There is no | | | new airspace consolidation. | | + + + + + | Procedure Note | + + | Cedric, Rad Conversion - 10/16/2018 9:43 PM PDT CHEST TWO VIEWS | | CLINICAL INFORMATION: | | Respiratory failure | | COMPARISON: | | XR CHEST 2 VIEW FRONTAL AND LATERAL (08/21/2018); XR CHEST 1 VIEW | | (07/21/2018); US THORACENTESIS WITH IMAGING GUIDANCE (07/21/2018); | | FINDINGS: | | There is mild enlargement of the heart. No mediastinal shift or | | widening is present. There is no pneumothorax. The pulmonary markings | | are normal in caliber. Improved aeration of the right lung is noted | | with some residual mild scarring and or atelectasis. There is a small | | right pleural effusion. There is no new airspace consolidation. | | IMPRESSION: | | 1. Improved aeration of the right lung with reduction of atelectasis | | and consolidation. | | 2. A small right pleural effusion is noted. | | Signed by: Eliza Khan Richard | | Sign Date/Time: 08/22/2018 10:31 PM | + + Basic Metabolic Panel (08/22/2018 7:02 AM PDT) + + + + + + | Component | Value | Ref Range | Performed | Pathologist | | | | | At | Signature | + + + + + + | Na | 139 | 135 - 145 | EXTERNAL | | | | | mmol/L | LAB | | + + + + + + | K | 5.1 (H) | 3.5 - 4.9 | EXTERNAL | | | | | mmol/L | LAB | | + + + + + + | Cl | 101 | 99 - 109 mmol/L | EXTERNAL | | | | | | LAB | | + + + + + + | CO2 | 28 | 23 - 32 mmol/L | EXTERNAL | | | | | | LAB | | + + + + + + | Anion Gap | 15 | 5 - 20 mmol/L | EXTERNAL | | | | | | LAB | | + + + + + + | Glucose, | 107 (H) | 65 - 99 mg/dL | EXTERNAL | | | Fasting | | | LAB | | + + + + + + | BUN | 31 (H) | 8 - 25 mg/dL | EXTERNAL | | | | | | LAB | | + + + + + + | Creatinine | 5.62 (H) | 0.50 - 1.00 | EXTERNAL | | | | | mg/dL | LAB | | + + + + + + | BUN/Creatin | 6 | | EXTERNAL | | | ine Ratio | | | LAB | | + + + + + + | Calcium | 9.3 | 8.5 - 10.5 | EXTERNAL | | | | | mg/dL | LAB | | + + + + + + | Estimated | 9 (L)Comment: GFR <60: | mL/min/1.73m2 | EXTERNAL | | | GFR | CHRONIC KIDNEY DISEASE, | | LAB | | | | IF FOUND OVER [...] | | | | | performed at [facility];[address] | | | | | | [address];[place] | | | | | | [address] | | | | + + + + + + + + | Specimen | + + | Blood specimen | | (specimen) | + + + +---------+ + + | Performing | Address | City/State/Zipcode | Phone Number | | Organization | | | | + +---------+ + + | EXTERNAL LAB | | | | + +---------+ + + XR Chest 2 Vws (08/21/2018 7:27 AM PDT) + + | Specimen | + + | | + + + + + | Impressions | Performed At | + + + | 1. Persistent infiltrate/atelectasis in the right mid to lower lung | | | zone extending through the upper, middle, and lower lobes, with small | | | right effusion and elevation right hemidiaphragm. Signed by: Akash | | | Quang Kay Sign Date/Time: 08/21/2018 7:44 AM | | + + + + + + | Narrative | Performed At | + + + | CHEST TWO VIEWS CLINICAL INFORMATION: Shortness of Breath. | | | COMPARISON: XR CHEST 1 VIEW (07/21/2018); CT CHEST WO CONTRAST | | | (07/19/2018); X CHEST (07/18/2018); FINDINGS: Persistent elevation | | | right hemidiaphragm, with persistent airspace infiltrate/atelectasis | | | in the right midlung to lower lung zone, with small right effusion. | | | No pneumothorax. The subtle ground-glass inhomogeneity of the | | | left lung on CT is not defined on chest x-ray. Heart size is normal. | | | Left lung is clear. | | + + + + + | Procedure Note | + + | Cedric, Rad Conversion - 10/16/2018 9:43 PM PDT CHEST TWO VIEWS | | CLINICAL INFORMATION: | | Shortness of Breath. | | COMPARISON: | | XR CHEST 1 VIEW (07/21/2018); CT CHEST WO CONTRAST (07/19/2018); X CHEST | | (07/18/2018); | | FINDINGS: | | Persistent elevation right hemidiaphragm, with persistent airspace | | infiltrate/atelectasis in the right midlung to lower lung zone, with | | small right effusion. No pneumothorax. The subtle ground-glass | | inhomogeneity of the left lung on CT is not defined on chest x-ray. | | Heart size is normal. Left lung is clear. | | IMPRESSION: | | 1. Persistent infiltrate/atelectasis in the right mid to lower lung | | zone extending through the upper, middle, and lower lobes, with small | | right effusion and elevation right hemidiaphragm. | | Signed by: Eliza Bustos Shawn | | Sign Date/Time: 08/21/2018 7:44 AM | + + External Lab: CBC (08/21/2018 5:02 AM PDT) + + +---- + + + | Component | Value | Ref Range | Performed | Pathologist | | | | | At | Signature | + + +---- + + + | WBC | 7.52 | 3.8 0 - 11.00 | EXTERNAL | | | | | K/u L | LAB | | + + +---- + + + | Red Blood | 3.10 (L) | 3.7 0 - 5.10 | EXTERNAL | | | Cells | | M/u L | LAB | | | Counted | | | | | + + +---- + + + | Hemoglobin | 11.7 | 11. 3 - 15.5 | EXTERNAL | | | | | g/d L | LAB | | + + +---- + + + | Hematocrit, | 34.6 | 34. 0 - 46.0 % | EXTERNAL | | | POC | | | LAB | | + + +---- + + + | MCV | 111.4 (H) | 80. 0 - 100.0 fl | EXTERNAL | | | | | | LAB | | + + +---- + + + | MCH | 37.8 (H) | 27. 0 - 34.0 pg | EXTERNAL | | | | | | LAB | | + + +---- + + + | MCHC | 33.9 | 32. 0 - 35.5 | EXTERNAL | | | | | g/d L | LAB | | + + +---- + + + | RDW-CV | 66.1 (H) | 37 - 53 fl | EXTERNAL | | | | | | LAB | | + + +---- + + + | Platelet | 185 | 150 - 400 K/uL | EXTERNAL | | | Count | | | LAB | | | Plasma | | | | | + + +---- + + + | MPV | 9.5 | fl | EXTERNAL | | | | | | LAB | | + + +---- + + + | Differentia | AUTOMATED | | EXTERNAL | | | l Type | | | LAB | | + + +---- + + + | % Segmented | 66.18 | % | EXTERNAL | | | | | | LAB | | | Neutrophils | | | | | + + +---- + + + | % | 19.11 | % | EXTERNAL | | | Lymphocytes | | | LAB | | + + +---- + + + | % Monocytes | 5.18 | % | EXTERNAL | | | | | | LAB | | + + +---- + + + | % | 8.59 | % | EXTERNAL | | | Eosinophils | | | LAB | | + + +---- + + + | % Basophils | 0.94 | % | EXTERNAL | | | | | | LAB | | + + +---- + + + | Absolute | 4.98 | 1.9 0 - 7.40 | EXTERNAL | | | Segmented | | K/u L | LAB | | | Neutrophils | | | | | + + +---- + + + | Absolute | 1.44 | 1.0 0 - 3.90 | EXTERNAL | | | Lymphocytes | | K/u L | LAB | | + + +---- + + + | Absolute | 0.39 | 0.0 0 - 0.80 | EXTERNAL | | | Monocytes | | K/u L | LAB | | + + +---- + + + | Absolute | 0.65 (H) | 0.0 0 - 0.50 | EXTERNAL | | | Eosinophils | | K/u L | LAB | | + + +---- + + + | Absolute | 0.07 | 0.0 0 - 0.10 | EXTERNAL | | | Basophils | | K/u L | LAB | | + + +---- + + + | RBC | 2+Comment: ANISONORMAL | | EXTERNAL | | | Morphology | PLT MORPH2+MACROTesting | | LAB | | | | performed at [facility], [address] | | | | | | [facility], | | | | | | [place] [address] | | | | | |MACRO | | | | | |Testing performed at [facility], [address] [facility], [place] [address] | | | | | | | [...] | | | + +---------+ + + Phosphorus (08/21/2018 5:02 AM PDT) + + + + + + | Component | Value | Ref Range | Performed | Pathologist | | | | | At | Signature | + + + + + + | PHOSPHORUS | 7.3 (H)Comment: Testing | 2.3 - 4.8 mg/dL | EXTERNAL | | | | performed at [facility], [address] | | LAB | | | | [address], | | | | | | [place] [address] | | | | + + + + + + + + | Specimen | + + | Blood specimen | | (specimen) | + + + +---------+ + + | Performing | Address | City/State/Zipcode | Phone Number | | Organization | | | | + +---------+ + + | EXTERNAL LAB | | | | + +---------+ + + Magnesium (08/21/2018 5:02 AM PDT) + + + + + + | Component | Value | Ref Range | Performed | Pathologist | | | | | At | Signature | + + + + + + | Magnesium | 2.8 (H)Comment: Testing | 1.7 - 2.4 mg/dL | EXTERNAL | | | | performed at [facility], [address] | | LAB | | | | [address], | | | | | | [place] [address] | | | | + + + [...] + +---------+ + + Basic Metabolic Panel (08/21/2018 5:02 AM PDT) + + + + + + | Component | Value | Ref Range | Performed | Pathologist | | | | | At | Signature | + + + + + + | Na | 138 | 135 - 145 | EXTERNAL | | | | | mmol/L | LAB | | + + + + + + | K | 5.4 (H) | 3.5 - 4.9 | EXTERNAL | | | | | mmol/L | LAB | | + + + + + + | Cl | 103 | 99 - 109 mmol/L | EXTERNAL | | | | | | LAB | | + + + + + + | CO2 | 22 (L) | 23 - 32 mmol/L | EXTERNAL | | | | | | LAB | | + + + + + + | Anion Gap | 18 | 5 - 20 mmol/L | EXTERNAL | | | | | | LAB | | + + + + + + | Glucose, | 97 | 65 - 99 mg/dL | EXTERNAL | | | Fasting | | | LAB | | + + + + + + | BUN | 79 (H) | 8 - 25 mg/dL | EXTERNAL | | | | | | LAB | | + + + + + + | Creatinine | 9.6 (H) | 0.50 - 1.00 | EXTERNAL | | | | | mg/dL | LAB | | + + + + + + | BUN/Creatin | 8 | | EXTERNAL | | | ine Ratio | | | LAB | | + + + + + + | Calcium | 9.1 | 8.5 - 10.5 | EXTERNAL | | | | | mg/dL | LAB | | + + + + + + | Estimated | 5 (L)Comment: GFR <60: | mL/min/1.73m2 | EXTERNAL | | | GFR | CHRONIC KIDNEY DISEASE, | | LAB | | | | IF FOUND OVER [...] | | | | | performed at [facility], [address] | | | | | | [facility], | | | | | | [place] [address] | | | | + + + + + + + + | Specimen | + + | Blood specimen | | (specimen) | + + + +---------+ + + | Performing | Address | City/State/Zipcode | Phone Number | | Organization | | | | + +---------+ + + | EXTERNAL LAB | | | | + +---------+ + + CBC no Differential (08/20/2018 5:44 PM PDT) + + + + + + | Component | Value | Ref Range | Performed | Pathologist | | | | | At | Signature | + + + + + + | WBC | 8.42 | 3.80 - 11.00 | EXTERNAL | | | | | K/uL | LAB | | + + + + + + | Red Blood | 3.37 (L) | 3.70 - 5.10 | EXTERNAL | | | Cells | | M/uL | LAB | | | Counted | | | | | + + + + + + | Hemoglobin | 11.9 | 11.3 - 15.5 | EXTERNAL | | | | | g/dL | LAB | | + + + + + + | Hematocrit, | 37.0 | 34.0 - 46.0 % | EXTERNAL | | | POC | | | LAB | | + + + + + + | MCV | 109.8 (H) | 80.0 - 100.0 fl | EXTERNAL | | | | | | LAB | | + + + + + + | MCH | 35.3 (H) | 27.0 - 34.0 pg | EXTERNAL | | | | | | LAB | | + + + + + + | MCHC | 32.1 | 32.0 - 35.5 | EXTERNAL | | | | | g/dL | LAB | | + + + + + + | RDW-CV | 66.9 (H) | 37 - 53 fl | EXTERNAL | | | | | | LAB | | + + + + + + | Platelet | 204 | 150 - 400 K/uL | EXTERNAL | | | Count | | | LAB | | | Plasma | | | | | + + + + + + | MPV | 9.1Comment: Testing | fl | EXTERNAL | | | | performed at [facility];[address] | | LAB | | | | [address];[place] | | | | | | [address] | | | | + + + + + + + + | Specimen | + + | | + + + +---------+ + + | Performing | Address | City/State/Zipcode | Phone Number | | Organization | | | | + +---------+ + + | EXTERNAL LAB | | | | + +---------+ + + Renal Function Panel (08/20/2018 5:43 PM PDT) + + + + + + | Component | Value | Ref Range | Performed | Pathologist | | | | | At | Signature | + + + + + + | Na | 144 | 135 - 145 | EXTERNAL | | | | | mmol/L | LAB | | + + + + + + | K | 5.1 (H) | 3.5 - 4.9 | EXTERNAL | | | | | mmol/L | LAB | | + + + + + + | Cl | 106 | 99 - 109 mmol/L | EXTERNAL | | | | | | LAB | | + + + + + + | CO2 | 22 (L) | 23 - 32 mmol/L | EXTERNAL | | | | | | LAB | | + + + + + + | Anion Gap | 21 (H) | 5 - 20 mmol/L | EXTERNAL | | | | | | LAB | | + + + + + + | Glucose, | 89 | 65 - 99 mg/dL | EXTERNAL | | | Fasting | | | LAB | | + + + + + + | BUN | 66 (H) | 8 - 25 mg/dL | EXTERNAL | | | | | | LAB | | + + + + + + | Creatinine | 8.68 (H) | 0.50 - 1.00 | EXTERNAL | | | | | mg/dL | LAB | | + + + + + + | Calcium | 9.3 | 8.5 - 10.5 | EXTERNAL | | | | | mg/dL | LAB | | + + + + + + | Albumin | 4.0 | 3.6 - 5.0 g/dL | EXTERNAL | | | | | | LAB | | + + + + + + | PHOSPHORUS | 6.7 (H) | 2.3 - 4.8 mg/dL | EXTERNAL | | | | | | LAB | | + + + + + + | Estimated | 6 (L)Comment: GFR <60: | mL/min/1.73m2 | EXTERNAL | | | GFR | CHRONIC KIDNEY DISEASE, | | LAB | | | | IF FOUND OVER [...] | | | | | performed at [facility];[address] | | | | | | [address];[place], [place] | | | | | | [address] | | | | + + + [...] | + + | Non-cardiogenic pulmonary edema Pulmonary congestion and hypostasis | + + documented in this encounter
--- OUTSIDE RECORDS SUMMARY | ~2019-07-14 | XMS | Encounter Summary ---
Demographics + + + | Address | [address] | | | [place] [address] | + + + | Home Phone [...] | | | | | [place] [address] | | + + + + + | Thania Mallory | ECON | [address] | | | | | [place] [address] | | + + + + + | Deidra Weldon | ECON | [address] | | | | | [place] | | | | | [address] | | + + + + + Care Team Providers + +------+ + | Care Electrical Prospecting Observer Name | Role | Phone | + [...] [address] | | | | | | [place], [place] | | | | | | [address] | | | +--------+ + + + [...] Denise | | | | | | [place], [place] | | | | | | [address] | | | | | | [phone] | | | | | | | | +--------+ + + + + documented as of this encounter Visit Diagnoses [facility]"
--- OUTSIDE RECORDS SUMMARY | ~2019-07-14 | XMS | Encounter Summary ---
Demographics + + + | Address | [address] | | | [place] [address] | + + + | Home Phone | | + + + | Preferred Language | Unknown | + + + | Marital Status | Single | + + + | Latter-Day Affiliation | Unknown | + + + | Race | Unknown | + + + | Ethnic Group | Unknown | + + + Author + + + | Author | [facility] | | | and Josephana | + + + | Organization | [facility] | | | and [...] Team Providers + +------+ + | Care Seamer Panty Hose Name | Role | Phone | + +------+ + PCP | Unavailable | + +------+ + Reason for Visit + + + | Reason | Comments | + + + | Dialysis | | | (Asymptomatic) | | + + + Encounter Details +--------+ + + + + | Date | Type | Department | Care Team | Description | +--------+ + + + + | 01/24/ | Documentati | [facility] [place] | Daniela Ibarra W, | Dialysis | | 2013 | on | NEPHROLOGY [address] | MD [address] | (Asymptomatic) | | | | [address] | [address] [place] | | | | | [place], [place] | [place] [address] | | | | | [address] | [phone] | | | | | [phone] | | | +--------+ + + + [...] Comments | + + +---------+ + | Not Asked | | | | + + +---------+ [...] this encounter Progress Notes Marilyn Palumbo - 02/07/2014 3:03 PM PSTHemodialysis progress note e-faxed to Jamil Levi in Dialysis [facility], Lianna Joy [facility] pediatric nephrology at [facility] on 02/07/14. Daniela Ibarra MD - 01/24/2014 2:48 PM PSTFormatting of this note might be different fr om the original. Comprehensive Dialysis Monthly Note Date of visit: 01/24/2014 Dialysis Clinic: [facility] Mode of dialysis: Hemodialysis Dialysis prescription: MWF, t=4 hrs, Na 138, K 3, BFR 425, EDW 93.5 kg HPI: Dara Weldon is a 18 y.o. female with ESRD on hemodialysis. Pt reports feeling well. Pt is discouraged with all the days she is missing at school due to dialysis. Pt is hoping her father will be able to donate a kidney soon. If not, pt stat es she wishes to have an AVF placed while waiting for a new donor. Pt denies shortness of b reath, chest pain, edema. PROBLEM LIST: Patient Active Problem List Diagnosis Date Noted ESRD (end stage renal disease) (HCC) Priority: High Note Last Updated: 11/22/2013 Due to Henoch-Schonlein purpura. On hemodialysis, started July 2013. Prior, was on peritoneal dialysis, started 2012. Access: R chest catheter. Re-referred to [facility] transplant in Oct 2013 by pediatric speech therapist. Peritonitis, dialysis-associated (HCC) 07/29/2013 Note Last Updated: 07/29/2013 Due to MSSA. Had tunneled infection as well. PD catheter removed in July 2013. On Keflex till 08/01/13. History of Henoch-Schonlein purpura Note Last Updated: 07/29/2013 Diagnosed at age 10[address] Joy, pediatric speech therapist. Anemia in ESRD (end-stage renal disease) (HCC) Secondary hyperparathyroidism (HCC) Obesity No Known Allergies Outpatient Prescriptions Marked as Taking for the 01/24/14 encounter (Documentation) with Dottie Ibarra MD Medication Sig Dispense Refill cholecalciferol (VITAMIN D-3) 1,000 units tablet Take 1,000 Units by mouth Daily. cinacalcet (SENSIPAR) 30 mg tablet Take 30 mg by mouth Daily (with dinner). Iron Sucrose (VENOFER IV) Inject 100 mg into the vein Three times a week. renal multivitamin (DIALYVITE, VOL-CARE) TABS Take 1 tablet by mouth every evening. 90 tablet 4 sevelamer carbonate (RENVELA) 800 mg tablet Take 2,400 mg by mouth 3 times daily (with meals). 3 tablets with meals and 2 tablets with snacks EXAM: T 97.8, HR 91, BP 137/76, weight 97.7 kg, gain 2.0 kg Constitutional: Appears well-developed and well-nourished. No distress. Cardiovascular: Normal rate, regular rhythm and normal heart sounds. No peripheral edema. Lungs: Respiratory effort normal and breath sounds normal. No crackles or wheezes. Abdominal: Soft. Bowel sounds are normal. No distension or tenderness. Musculoskeletal: No muscle tenderness. Neurological: Alert. Dialysis Access: BFR 400 mL/min via catheter. DIALYSIS LABS: 01/11/14 Hb 11.7, TSAT 15%, ferritin 216, WBC 8.2, PLT 158 Na 138, K 4.4, Cl 102, bicarb 20, BUN 56, Cr 10.5, calcium 9.1, phos 4.3, PTH 196 EKt/V 1.51, URR 77% ASSESSMENT AND PLAN: 1. ESRD: Dialysis clearance is at goal. 2. Access: R chest catheter. Pt is going on 7 months of dialyzing via chest catheter. Sparkle ibanez, pt has not had any infectious complication to date. -will plan for AVF surgery if trans plant is further delayed 3. HTN/volume: Clinic BP are acceptable. Per RN, pt occasionally develops hypertension. -will do a trial of furosemide 80 mg QAM -counseled pt to limit fluid intake 4. Anemia due to ESRD: Hb >11; off ESTEAFNY. On series of Venofer. 5. Mineral bone disease: Serum calcium and phosphorous levels are at goal. PTH is at goal. 6. Acid-base: Serum bicarb is acceptable. 7. Nutrition: Serum albumin is at goal. 8. Transplantation: Pt's father, Clayton, is a potential living donor. Father is being evaluat ed for acceptable candidacy. Will f/u with [facility] Transplant Team. cc: Lucille Griffin [facility] Dr. Lianna Joy, [facility] Pediatric Nephrology [facility] Renal transplant documented in this encounter Plan of Treatment Not on filedocumented as of this encounter Visit Diagnoses + + | Diagnosis | + + | ESRD (end stage renal disease) (HCC) - Primary End stage renal disease | + + | Hypertension Unspecified essential hypertension | + + | Anemia in ESRD (end-stage renal disease) (HCC) Anemia in chronic kidney disease | + + | Secondary hyperparathyroidism (HCC) Secondary hyperparathyroidism (of renal origin) | + + documented in this encounter"
--- OUTSIDE RECORDS SUMMARY | ~2019-07-14 | XMS | Encounter Summary ---
Demographics + + + | Address | [address] | | | [place] [address] | + + + | Home Phone [...] | | | | | [place] [address] | | + + + + + | Thania Mallory | ECON | [address] | | | | | [place] [address] | | + + + + + | Deidra Weldon | ECON | [address] | | | | | [place] | | | | | [address] | | + + + + + Care Team Providers + +------+ + | Care Bond Underwriter Name | Role | Phone | [...] | | | | | [address] [facility] | [facility] | | | | | [address] [facility], | [place], [place] | | | | | [place] [address] | [address] | | | | | [phone] | | | +--------+ + + + [...] Denise | | | | | | [place], [place] | | | | | | [address] | | | | | | [phone] | | | | | | | | +--------+ + + + + documented as of this encounter Visit Diagnoses Not on filedocumented in this encounter"
--- OUTSIDE RECORDS SUMMARY | ~2019-07-14 | XMS | Encounter Summary ---
Demographics + + + | Address | [address] | | | [place] [address] | + + + | Home Phone [...] | | | | | [place] [address] | | + + + + + | Thania Mallory | ECON | [address] | | | | | [place] [address] | | + + + + + | Deidra Weldon | ECON | [address] | | | | | [place] | | | | | [address] | | + + + + + Care Team Providers + +------+ + | Care Claim Technician Name | Role | Phone | [...] report) | | | | Physician's | [place], [place] | | | | | [address], 3rd floor | [address] | | | | | [place], [place] | [phone] | | | | | [address] | | | | | | [phone] | | | +--------+ + + + [...] Denise | | | | | | [place] | | | | | | [address] | | | | | | [phone] | | | | | | | | +--------+ + + + + documented as of this encounter Visit Diagnoses Not on filedocumented in this encounter"
--- OUTSIDE RECORDS SUMMARY | ~2019-07-14 | XMS | Encounter Summary ---
Demographics + + + | Address | [address] | | | [place] [address] | + + + | Home Phone [...] | | | | | [place] [address] | | + + + + + | Thania Mallory | ECON | [address] | | | | | [place] [address] | | + + + + + | Deidra Weldon | ECON | [address] | | | | | [place] | | | | | [address] | | + + + + + Care Team Providers + +------+ + | Care Sql Consultant Name | Role | Phone | [...] 11/22/ | Telephone | Clinical | Kelsi Martinez, | Candidate donor | | 2012 | | Transplant Services | RN [address] | | | | | [address] | [facility] | | | | | [address] [facility], | [place], [place] | | | | | [place] [address] | [address] | | | | | [phone] | | | +--------+ + + + [...] Denise | | | | | | [place] | | | | | | [address] | | | | | | [phone] | | | | | | | | +--------+ + + + + documented as of this encounter Visit Diagnoses Not on filedocumented in this encounter"
--- OUTSIDE RECORDS SUMMARY | ~2019-07-14 | XMS | Encounter Summary ---
Demographics + + + | Address | [address] | | | [place] [address] | + + + | Home Phone [...] + + + | Author | [facility] | | | and Josephana | + + + | Organization | [facility] | | | and Josephana [...] Team Providers + +------+ + | Care Conduit Mechanic Name | Role | Phone | [...] | stage renal | [address] | [address] [place] [address] | | | | | disease) | Shun Griffin | [address] | | | | | (HCC) | [address] | [address] [place] | | | | | Anemia in | [place], [place] | [place], [place] | | | | | ESRD | [address] | [address] Phone: | | | | | (end-stage | Phone: | [phone] | | | | | renal | [phone] | Fax: | | | | | disease) | Fax: | [phone] | | | | | ([facility]) | [phone] | | | | | | Procedures | | | | | | | UT ESRD | | | | | | | RELATED SVC | | | | | | | MONTHLY | | | | | | | 20&/> YR OLD | | | | | | | 4/> VISITS | | | +--------+--------+ + + + + Encounter Details +--------+ + + + + | Date | Type | Department | Care Team | Description | +--------+ + + + + | 02/12/ | Off-Site | [facility] [place] | Jorje Camp | ESRD (end stage | | 2018 | Visit | NEPHROLOGY [address] | M, DO [address] | renal disease) ([facility]) | | | | [address] | [place], [address] | (Primary Dx) | | | | [place], [place] | [place], [place] | | | | | [address] | [address] | | | | | [phone] | | | +--------+ + + + [...] + + + | Blood Pressure | 169/100 | 02/12/2018 4:02 PM | | | | | PST | | + + + + + | Pulse | - | - | | + + + + + | Temperature | 36.1 C (97 F) | 02/12/2018 4:02 PM | | | | | PST [...] encounter Progress Notes Jorje Camp DO - 02/12/2018 10:15 AM PST Subjective: DIALYSIS NOTE Patient ID: Dara Weldon is a 22 y.o. female. 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 She also has anemia secondary to CKD, SHPTH, centripetal obesity, ongoing nicotine addiction, despit e advice to quit, and chronic THC dependence. Dara does appear to be doing some better with showing up for her txs, however, she has an above average rate of taking herself off of the Rx, AMA, 1 hour early at times, which has lead to some under-dialysis and fluid retention. She had an episode where she went to the ER recently for "sharp" epigastric pain. CT of the abdomen showed a normal pancrease, no fr ee air, and a large amount of ascites , which is new for her. Outpatient Prescriptions Marked as Taking for the 02/12/18 encounter (Off-Site Visit) with Jorje Camp DO Medication Sig Dispense Refill albuterol 90 mcg/puff inhaler Inhale 2 puffs into the lungs every 6 hours as needed for Wheezing. 1 Inhaler 11 [DISCONTINUED] cinacalcet (SENSIPAR) 90 MG tablet Take 1 tablet by mouth Daily (with di nner). 30 tablet 11 clopidogrel (PLAVIX) 75 mg tablet Take 1 tablet by mouth Daily. 30 tablet 11 [DISCONTINUED] doxercalciferol (HECTOROL) 2 mcg/mL injection Inject 0.5 mLs into the ve in Three times a week. Per dialysis clinic protocol [START ON 02/26/2018] doxercalciferol (HECTOROL) 2 mcg/mL injection Inject 0.5 mLs into the vein Three times a week. Per dialysis clinic protocol [DISCONTINUED] doxercalciferol (HECTOROL) 2 mcg/mL injection Inject 0.5 mcg into the ve in Three times a week. Per dialysis clinic protocol epoetin jnena (EPOGEN,PROCRIT) 3,000 units/mL injection Inject 5,000 Units under the ski n Three times a week. etelcalcetide (PARSABIV) 2.5 mg/0.5 mL injection Inject 2.5 mg into the vein Three time s a week. hydrOXYzine (ATARAX) 50 MG tablet [...] and Rash Lisinopril cough Objective: BP (!) 169/100 | Temp 36.1 C (97 F) EDW 78 kg Physical Exam Heart: Regular rate and rhythm with no S3, S4, murmur or rub. Lungs: CTA bilaterally. No rales or wheezes. Abdomen: Soft, obese, nontender, normoactive bowel sounds.. Extremities: No clubbing, cyanosis, trace edema LAB: BUN 38, Cr 7.30, K+ 4.7, HCO3 24, Ca++ 9.4, PO4 5.2, PTH 594, Alb 3.8, Hb 10.4, TSat. = 16 %, Ferritin 353, spKT/V = 1.14. Assessment: 1. ESRD-- she is doing some better with her attendance. I did discuss with her that it is not in her best interest to curtail her txs, which lead to chronic edema, fluid retention, and CHF symptoms. 2. Hypertension-- due to her increased BP and ascites recently on CT of abd., she is agree able to decreasing her dry wt. to 77 kg. 3. SHPTH-- she was placed on IV Parsabiv, 2.5 mcg, Q tx which appears to have helped her P TH. Serum PO4 appears to be falling somewhat. 4. Nutrition-- albumin is improving with UF, and maintaining txs towards a realistic KT/V, and her better compliance with some tx sessions? 5. Anemia secondary to CKD-- anemia is improving as she appears to obtaining all of her M ircera injections? 6. Centripetal obesity-- about same. 7. 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 8. Transplantation--not at all a candidate and at high risk for graft loss due to her stevie turity and lack of insight into her CKD. 9. Self-destructive behavior-- she appears slightly more motivated, this month. 10. Chronic Nicotine and THC dependence-- she appears lucid and cooperative today. Plan: 1. I encouraged Dara to attend all of her full tx sessions to optimize her clearance, an d response to meds. 2. After a detailed discussion, will decrease her EDW to 77 kg. 3 Monthly lab was reviewed with her. 4. Hopefully her PTH will continue to fall on the Parsabiv, IV? : Sherman Fina Alonso MD, PhD documented in thi s encounter Plan of Treatment Not on filedocumented as of this encounter Visit Diagnoses + + | Diagnosis | + + | ESRD (end stage renal disease) (HCC) - Primary End stage renal disease | + + documented in this encounter
--- OUTSIDE RECORDS SUMMARY | ~2019-07-14 | XMS | Encounter Summary ---
Demographics + + + | Address | [address] | | | [place] [address] | + + + | Home Phone | | + + + | Preferred Language | Unknown | + + + | Marital Status | Single | + + + | Muslim Affiliation | Unknown | + + + | Race | Unknown | + + + | Ethnic Group | Unknown | + + + Author + + + | Author | [facility] | | | and Josephana | + + + | Organization | [facility] | | | and Josephana [...] Team Providers + +------+ + | Care Registered Associate Name | Role | Phone | [...] | | stage renal | [address] | [address] [place] [address] | | | | | disease) | Shun Griffin | [place] | | | | | ([facility]) | [address] | [address] [place] | | | | | Anemia in | [place], [place] | [place] | | | | | ESRD | [address] | [address] Phone: | | | | | (end-stage | Phone: | [phone] | | | | | renal | [phone] | Fax: | | | | | disease) | Fax: | [phone] | | | | | ([facility]) | [phone] | | | | | | Procedures | | | | | | | [place] OFFICE | | | | | | | OUTPATIENT | | | | | | | VISIT 25 | | | | | | | MINUTES | | | +--------+--------+ + + + + Encounter Details +--------+ + + + + | Date | Type | Department | Care Team | Description | +--------+ + + + + | 05/02/ | Off-Site | [facility] | Jorje Camp | ESRD (end stage | | 2017 | Visit | NEPHROLOGY [address] | M, DO [address] | renal disease) ([facility]) | | | | [address] | [place], [address] | (Primary Dx) | | | | [place], [place] | [place], [place] | | | | | [address] | [address] | | | | | [phone] | | | +--------+ + + + [...] + + + | Blood Pressure | 135/86 | 05/02/2016 4:26 PM | | | | | PST | | + + + + + | Pulse | - | - | | + + + + + | Temperature | 37 C (98.6 F) | 05/02/2016 4:26 PM | | | | | PST [...] encounter Progress Notes Jorje Camp DO - 05/02/2016 4:28 PM PST Subjective: DIALYSIS NOTE Patient ID: Dara Weldon is a 21 y.o. female. 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 She also has anemia secondary to CKD, SHPTH, centripetal obesity. She is see n on HD at [facility], with QB = 450. Unfortunately, she is consistently plagued by unexplained absenteeism from treatments. Despite having reliable transportation arranged b y the Research Development Director. She apparently still lacks meaningful plans for vocation, or any education. Her appetite i s excellent she relates. Outpatient Prescriptions Marked as Taking for the 05/02/16 encounter (Off-Site Visit) with Camille Camp DO [...] tapes Morphine Itching and Rash Objective: BP 135/86 mmHg | Temp(Src) 37 C (98.6 F) EDW 97.5 kg Physical Exam Heart: Regular rate and rhythm with no S3, S4, murmur or rub. Lungs: CTA bilaterally. No rales or wheezes. Abdomen: Soft, obese, nontender, normoactive bowel sounds.. Extremities: No clubbing, cyanosis, or edema. LAB: BUN 68, Cr 9.87, K+ 5.5, HCO3 24, Ca++ 9.9, PO4 7.6, PTH , Alb 3.8, Hb 11.8, TSat. = 39 %, Ferritin 665, eKT/V = 1.47. Assessment: 1. ESRD-- despite a stable eKT/V , my gut feeling is that she is under-dialyzed as she inf requently, mises 1 tx every 2 weeks. I discussed with her that this predisposes her to fluid and PO4 accumulation? She does not appear to accept th at she does have CKD? 2. Hypertension--better control last 3 mo. I think that her ely shoshone Dry wt = 97.5 kg? 3. SHPTH--not improved. I discussed with Dara about an ENT elective consultation for a 3 1/2 gland PTH-ectomy, which could afford better control and decrease some of her daily pil l burden , with her markedly advanced SHPTH? However, she is A&O x3 and avoids this topic . 4. Nutrition-- my gut feeling is that between her personal food choices, and unstable home environment, she is not on a balanced diet? 6. Anemia-- EPO is still on hold until the actual Hb is < 11.0 g/dl. 7. Centripetal obesity--see above. 8. 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 9. Transplantation-- unfortunately, after interviewing her, given her tentative maturity cristiana makenzie, she would be at moderate risk of acute graft loss, due to noncompliance with meds and follow up? Plan: 1. I encouraged Dara that her adequacy , and BP control are reasonable. 2. I discussed that frequent missed txs is assoc. with a worse outcome in CKD pts. 3. Hold EPO and will restart when the Hb is < 11.0. 4. Will recheck her in 2 weeks. I told Dara that if she changes her mind about a PTH-ec haroldo, that she should notify our office, myself or Dr. Ibarra. : Umbarger Fina Joy M.D., Pediatric Nephrology, [facility] documented in t his encounter Plan of Treatment Not on filedocumented as of this encounter Visit Diagnoses + + | Diagnosis | + + | ESRD (end stage renal disease) (HCC) - Primary End stage renal disease | + + documented in this encounter"
--- OUTSIDE RECORDS SUMMARY | ~2019-07-14 | XMS | Encounter Summary ---
Demographics + + + | Address | [address] | | | [place] [address] | + + + | Home Phone [...] | | | | | [place] [address] | | + + + + + | Thania Mallory | ECON | [address] | | | | | [place] [address] | | + + + + + | Deidra Weldon | ECON | [address] | | | | | [place] | | | | | [address] | | + + + + + Care Team Providers + +------+ + | Care Electrical Assembly Technician Name | Role | Phone | [...] | | | | | [address] [place], | | | | | | [place] [address] | | | +--------+ + + + [...] | | | | | | [place], [place] | | | | | | [address] | | | | | | [phone] | | | | | | | [...] stage renal | | | AG ID EVA, BLOOD | e | 4:54 PM | disease [ICD-9-CM] | | | | | PDT | | | + +--------+ + + + documented in this encounter Results LIT FLOW HLA II AB AG ID EVA, BLOOD (06/10/2014 4:54 PM PDT) + + | Specimen | + + | Blood - Blood | + + + + + + + | Performing | Address | City/State/Zipcode | Phone Number | | Organization | | | | + + + + + | [facility] | [address], | [place] [address] | | | IMMUNOGENETICS/TRANS | [address] | | | | [facility] | | | | + + + + + documented in this encounter Visit Diagnoses + + | Diagnosis | + + | End stage renal disease (HCC) End stage renal disease | + + documented in this encounter"
--- OUTSIDE RECORDS SUMMARY | ~2019-07-14 | XMS | Encounter Summary ---
Demographics + + + | Address | [address] | | | [place] [address] | + + + | Home Phone [...] + + + | Author | [facility] | | | and [place] | + + + | Organization | [facility] | | | and [place] | + + + | Address | Unknown | + + + | Phone | Unavailable | + + + Support + + +---------+ + | Name | Relationship | Address | Phone | + + +---------+ + | hTania Mallory | ECON | Unknown | | + + +---------+ + | Saundra Mallory | ECON | Unknown | | + + +---------+ + Care Team Providers + +------+ + | 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 [employer]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 Name | Role | Phone | + +------+ + PCP | Unavailable | + +------+ + Encounter Details +--------+ + + + + | Date | Type | Department | Care Team | Description | +--------+ + + + + | 08/12/ | Hospital | [facility] | Conversion | ESRD (end stage | | 2016 | Encounter | CENTER CV [facility] OP | Transaction, | renal disease) | | | | [address] | Provider Unknown | ([facility]); ESRD on | | | | [place], [place] | | hemodialysis ([facility]) | | | | [phone] | (Fax) | | | | | [phone] | Doyle Diaz MD | | +--------+ + + + + [...] Inject 0.4 mLs | | 0 | //20 | | | (EPOGEN) 20,000 | (8,000 Units total) | | | 14 | | | units/mL injection | into the skin every | | | | | | | 7 days. | | | | | + + + +---------+ + + | iron sucrose | Inject 2.5 mLs into | | 0 | 07/10/20 | | | (VENOFER) 20 mg/mL | [...] tablet by | 90 | 4 | 01/10/20 | | | (SENSIPAR) 90 MG | mouth Daily (with | tablet | | 15 | 7 | | tablet | dinner). | | | | | + + + +---------+ + + | doxercalciferol | Inject 0.5 mcg into | | 0 | 01/10/20 | | | (HECTOROL) 2 mcg/mL | the vein Three times | | | 15 | 8 | | injection | a week. Per | | | | | | | dialysis clinic | | | | | | | protocol | | | | | + + + +---------+ + + | epoetin jenna | --On Hold. | 1 mL | 0 | 01/10/20 | | | (EPOGEN, PROCRIT) | | | | 15 | 6 | | 10,000 units/mL | | | | | | | injection | | | | | | + + + +---------+ + + | renal multivitamin | Take 1 tablet by | 90 | 4 | 01/10/20 | | | (DIALYVITE, | mouth every evening. | tablet | | 15 | 7 | | VOL-CARE) TABS | | | | | | + + + +---------+ + + | sertraline | Take 1 tablet by | 30 | 11 | 02/21/20 | | | (ZOLOFT) 25 mg | mouth Daily. | tablet | | 15 | 7 | | tablet | | | | [...] + + + +---------+ + + | traMADol (ULTRAM) | Take 50 mg by mouth | | 0 | | | | 50 mg tablet | every 12 hours as | | | | 7 | | | needed for Pain. | | | | | + + + +---------+ + + documented as of this encounter Progress Notes Conversion Transaction, Provider Unknown - 08/13/2015 11:15 AM PDTFormatting of this note m ight be different from the original. Nurse Progress Note by Taylor Acuna RN at 08/13/151114 Author: Taylor Acuna RN Service: Cardiology Author Type: Registered Nurse Filed: 08/13/151114 Date of Service: 08/13/151114 Status: Signed Wood Turning Lathe Operator: Taylor Acuna RN (Registered Nurse) Pt discharged home with family. VSS. Taylor Acuna RN docume nted in this encounter Plan of Treatment Not on filedocumented as of this encounter Procedures + +--------+ + + + | Procedure Name | Priori | Date/Time | Associated Diagnosis | Comments | | | ty | | | | + +--------+ + + + | IR INJECTION | Routin | 08/13/2015 | | Results for this | | DIALYSIS CIRCUIT W | e | 10:48 AM | | procedure are in the | | ANGIOPLASTY | | PDT | | results section. | + +--------+ + + + | IR INJECTION | Routin | 08/13/2015 | | Results for this | | DIALYSIS CIRCUIT | e | 10:48 AM | | procedure are in the | | | | PDT | | results section. | + +--------+ + + + | US GUIDED VASCULAR | Routin | 08/13/2015 | | Results for this | | ACCESS | e | 10:47 AM | | procedure are in the | | | | PDT | | results section. | + +--------+ + + + | POTASSIUM | Routin | 08/13/2015 | | Results for this | | | e | 8:17 AM | | procedure are in the | | | | PDT | | results section. | + +--------+ + + + documented in this encounter Results IR Inj Dialysis Circuit w Angioplasty (08/13/2015 10:48 AM PDT) + + | Specimen | + + | | + + + + + | Impressions | Performed At | + + + | 1. In stent stenosis involving an existing stent within the | | | juxta-anastomotic venous outflow, angioplastied using a 6 mm balloon. | | | Post-angioplasty AV fistula venogram demonstrates a patent | | | juxta-anastomotic stent without significant residual stenosis. 2. | | | Focal stenosis involving the mid cephalic venous outflow in the mid | | | upper arm, angioplastied using a 10 mm balloon. Post-angioplasty AV | | | fistula venogram demonstrates a patent cephalic venous outflow in the | | | upper arm without significant residual stenosis. PLAN: Follow-up | | | AVF venogram in 90 days. Electronically signed by Doyle Diaz on | | | 08/14/2015 5:07 PM | | + + + + + + | Narrative | Performed At | + + + | CLINICAL DATA: 20-year-old woman with left upper extremity AV | | | fistula for hemodialysis. Poor flows and difficulty with cannulation | | | associated with hemodialysis. PROCEDURES PERFORMED: 1. IR | | | GUIDANCE FOR ACCESS 2. ADDITIONAL ACCESS FOR INTERVENTION 3. IR | | | DIALYSIS FISTULAGRAM 4. IR ANGIOPLASTY AV FISTULA VENOUS | | | BIG DATA SOFTWARE ENGINEER: Doyle Diaz MD CONSENT: The risks, benefits and | | | alternatives of the procedure were discussed with the patient. Signed | | | consent was given as witnessed by nursing staff. SEDATION: | | | Moderate conscious sedation was administered during the procedure by | | | the physician and nursing staff with continuous hemodynamic | | | monitoring throughout the procedure. Total Sedation: Versed 4 mg; | | | Fentanyl: 50 mcg; Dilaudid: 1 mg. Total Sedation Time: 50 min. | | | ANTIBIOTIC PROPHYLAXIS: Ancef 2 g IV CONTRAST: 40 mL Isovue 300 | | | FLUOROSCOPY TIME: 6.1 min, Dose 33 mGy TECHNIQUE/FINDINGS: | | | Patient was placed supine on the fluoroscopy table. The left arm was | | | prepped and draped in sterile fashion. Local anesthesia administered | | | with 1% lidocaine. Under ultrasound guidance, the venous limb of | | | the AV fistula was accessed in retrograde fashion using a 21-gauge | | | micropuncture needle. Using a catheter guidewire combination, a 4 | | | [place] angled catheter was advanced and positioned into the inflow | | | brachial artery. Contrast was administered and a left upper | | | extremity AV fistula venogram was performed in successive stations | | | centrally. The AV anastomosis appears patent. In-stent stenosis | | | involving an existing stent in the juxta-anastomotic venous outflow | | | just downstream from the AV anastomosis. In addition, there is a focal | | | stenosis involving the cephalic venous outflow at the level of the | | | mid upper arm. The remainder of the cephalic venous outflow | | | appears patent without significant stenosis. The central veins | | | including the left axillary vein, left subclavian vein, left | | | innominate vein and SVC appear patent. ANGIOPLASTY: Over a | | | guidewire, a 6 [place] sheath was advanced and positioned into the | | | venous limb. Over a guidewire, angioplasty of the in-stent | | | stenosis within the juxta-anastomotic venous outflow was performed | | | using a 6 mm balloon. Post-angioplasty AV fistulogram demonstrates a | | | patent juxta-anastomotic venous outflow and existing stent without | | | significant stenosis. Attention was then directed towards the | | | stenosis involving the venous outflow in the mid upper arm. The | | | arterial limb of the left upper extremity AV fistula was accessed with | | | a 21-gauge micropuncture needle in antegrade fashion. Over a | | | guidewire, a 7 [place] sheath was advanced and positioned into the | | | arterial limb. Over a guidewire, balloon angioplasty of the | | | cephalic venous outflow stenosis in the mid upper arm was performed | | | using 8 mm balloon. Post-angioplasty AV fistula venogram | | | demonstrates improved appearance of the cephalic venous outflow with | | | moderate residual stenosis. Subsequently, over a guidewire, | | | balloon angioplasty of the cephalic venous outflow stenosis in the | | | upper arm was performed using a 10 mm balloon. Post-angioplasty AV | | | fistulogram demonstrates a patent cephalic venous outflow without | | | significant residual stenosis. All wires and catheters were | | | subsequently removed. Hemostasis achieved using purse string sutures. | | | Patient tolerated procedure well. No immediate complications. | | | EBL: Minimal. COMPLICATIONS: None. | | + + + + + | Procedure Note | + + | Cedric, Rad Conversion - 10/18/2018 9:20 PM PDT CLINICAL DATA: 20-year-old woman with | | left upper extremity AV fistula for hemodialysis. Poor flows and difficulty with | | cannulation associated with hemodialysis. PROCEDURES PERFORMED:1. IR GUIDANCE FOR | | ACCESS2. ADDITIONAL ACCESS FOR INTERVENTION3. IR DIALYSIS FISTULAGRAM4. IR ANGIOPLASTY | | AV FISTULA VENOUS BIG DATA SOFTWARE ENGINEER: Doyle Diaz MD CONSENT: The risks, benefits and | | alternatives of the procedure were discussed with the patient. Signed consent was given | | as witnessed by nursing staff. SEDATION: Moderate conscious sedation was administered | | during the procedure by the physician and nursing staff with continuous hemodynamic | | monitoring throughout the procedure. Total Sedation: Versed 4 mg; Fentanyl: 50 mcg; | | Dilaudid: 1 mg. Total Sedation Time: 50 min. ANTIBIOTIC PROPHYLAXIS: Ancef 2 g IV | | CONTRAST: 40 mL Isovue 300 FLUOROSCOPY TIME: 6.1 min, Dose 33 mGy | | TECHNIQUE/FINDINGS:Patient was placed supine on the fluoroscopy table. The left arm was | | prepped and draped in sterile fashion. Local anesthesia administered with 1% lidocaine. | | Under ultrasound guidance, the venous limb of the AV fistula was accessed in retrograde | | fashion using a 21-gauge micropuncture needle. Using a catheter guidewire combination, a | | 4 [place] angled catheter was advanced and positioned into the inflow brachial artery. | | Contrast was administered and a left upper extremity AV fistula venogram was performed | | in successive stations centrally. The AV anastomosis appears patent. In-stent stenosis | | involving an existing stent in the juxta-anastomotic venous outflow just downstream from | | the AV anastomosis. In addition, there is a focal stenosis involving the cephalic | | venous outflow at the level of the mid upper arm. The remainder of the cephalic venous | | outflow appears patent without significant stenosis. The central veins including the | | left axillary vein, left subclavian vein, left innominate vein and SVC appear patent. | | ANGIOPLASTY:Over a guidewire, a 6 [place] sheath was advanced and positioned into the | | venous limb. Over a guidewire, angioplasty of the in-stent stenosis within the | | juxta-anastomotic venous outflow was performed using a 6 mm balloon. Post-angioplasty AV | | fistulogram demonstrates a patent juxta-anastomotic venous outflow and existing stent | | without significant stenosis. Attention was then directed towards the stenosis involving | | the venous outflow in the mid upper arm. The arterial limb of the left upper extremity | | AV fistula was accessed with a 21-gauge micropuncture needle in antegrade fashion. Over | | a guidewire, a 7 [place] sheath was advanced and positioned into the arterial limb. Over | | a guidewire, balloon angioplasty of the cephalic venous outflow stenosis in the mid | | upper arm was performed using 8 mm balloon. Post-angioplasty AV fistula venogram | | demonstrates improved appearance of the cephalic venous outflow with moderate residual | | stenosis. Subsequently, over a guidewire, balloon angioplasty of the cephalic venous | | outflow stenosis in the upper arm was performed using a 10 mm balloon. Post-angioplasty | | AV fistulogram demonstrates a patent cephalic venous outflow without significant | | residual stenosis. All wires and catheters were subsequently removed. Hemostasis | | achieved using purse string sutures. Patient tolerated procedure well. No immediate | | complications. EBL: Minimal. COMPLICATIONS: None. IMPRESSION: 1. In stent stenosis | | involving an existing stent within the juxta-anastomotic venous outflow, angioplastied | | using a 6 mm balloon. Post-angioplasty AV fistula venogram demonstrates a patent | | juxta-anastomotic stent without significant residual stenosis.2. Focal stenosis | | involving the mid cephalic venous outflow in the mid upper arm, angioplastied using a 10 | | mm balloon. Post-angioplasty AV fistula venogram demonstrates a patent cephalic venous | | outflow in the upper arm without significant residual stenosis. PLAN: Follow-up AVF | | venogram in 90 days. | | | |Post-angioplasty AV fistula venogram demonstrates improved appearance of the cephalic venou s outflow with moderate residual stenosis. | | | |Subsequently, over a guidewire, balloon angioplasty of the cephalic venous outflow stenosis in the upper arm was performed using a 10 mm balloon. | | | |Post-angioplasty AV fistulogram demonstrates a patent cephalic venous outflow without signi ficant residual stenosis. | | | |All wires and catheters were subsequently removed. Hemostasis achieved using purse string s utures. | | | |Patient tolerated procedure well. No immediate complications. | | | |EBL: Minimal. | | | |COMPLICATIONS: None. | | | |IMPRESSION: | |1. In stent stenosis involving an existing stent within the juxta-anastomotic venous outflo w, angioplastied using a 6 mm balloon. Post-angioplasty AV fistula venogram demonstrates a p atent juxta-anastomotic stent without significant residual stenosis. | |2. Focal stenosis involving the mid cephalic venous outflow in the mid upper arm, angioplas tied using a 10 mm balloon. Post-angioplasty AV fistula venogram demonstrates a patent cepha lic venous outflow in the upper arm without significant residual | |stenosis. | | | |PLAN: Follow-up AVF venogram in 90 days. | | | | | + + IR Inj Dialysis Circuit (08/13/2015 10:48 AM PDT) + + | Specimen | + + | | + + + + + | Impressions | Performed At | + + + | 1. In stent stenosis involving an existing stent within the | | | juxta-anastomotic venous outflow, angioplastied using a 6 mm balloon. | | | Post-angioplasty AV fistula venogram demonstrates a patent | | | juxta-anastomotic stent without significant residual stenosis. 2. | | | Focal stenosis involving the mid cephalic venous outflow in the mid | | | upper arm, angioplastied using a 10 mm balloon. Post-angioplasty AV | | | fistula venogram demonstrates a patent cephalic venous outflow in the | | | upper arm without significant residual stenosis. PLAN: Follow-up | | | AVF venogram in 90 days. Electronically signed by Doyle Diaz on | | | 08/14/2015 5:07 PM | | + + + + + + | Narrative | Performed At | + + + | CLINICAL DATA: 20-year-old woman with left upper extremity AV | | | fistula for hemodialysis. Poor flows and difficulty with cannulation | | | associated with hemodialysis. PROCEDURES PERFORMED: 1. IR | | | GUIDANCE FOR ACCESS 2. ADDITIONAL ACCESS FOR INTERVENTION 3. IR | | | DIALYSIS FISTULAGRAM 4. IR ANGIOPLASTY AV FISTULA VENOUS | | | BIG DATA SOFTWARE ENGINEER: Doyle Diaz MD CONSENT: The risks, benefits and | | | alternatives of the procedure were discussed with the patient. Signed | | | consent was given as witnessed by nursing staff. SEDATION: | | | Moderate conscious sedation was administered during the procedure by | | | the physician and nursing staff with continuous hemodynamic | | | monitoring throughout the procedure. Total Sedation: Versed 4 mg; | | | Fentanyl: 50 mcg; Dilaudid: 1 mg. Total Sedation Time: 50 min. | | | ANTIBIOTIC PROPHYLAXIS: Ancef 2 g IV CONTRAST: 40 mL Isovue 300 | | | FLUOROSCOPY TIME: 6.1 min, Dose 33 mGy TECHNIQUE/FINDINGS: | | | Patient was placed supine on the fluoroscopy table. The left arm was | | | prepped and draped in sterile fashion. Local anesthesia administered | | | with 1% lidocaine. Under ultrasound guidance, the venous limb of | | | the AV fistula was accessed in retrograde fashion using a 21-gauge | | | micropuncture needle. Using a catheter guidewire combination, a 4 | | | [place] angled catheter was advanced and positioned into the inflow | | | brachial artery. Contrast was administered and a left upper | | | extremity AV fistula venogram was performed in successive stations | | | centrally. The AV anastomosis appears patent. In-stent stenosis | | | involving an existing stent in the juxta-anastomotic venous outflow | | | just downstream from the AV anastomosis. In addition, there is a focal | | | stenosis involving the cephalic venous outflow at the level of the | | | mid upper arm. The remainder of the cephalic venous outflow | | | appears patent without significant stenosis. The central veins | | | including the left axillary vein, left subclavian vein, left | | | innominate vein and SVC appear patent. ANGIOPLASTY: Over a | | | guidewire, a 6 [place] sheath was advanced and positioned into the | | | venous limb. Over a guidewire, angioplasty of the in-stent | | | stenosis within the juxta-anastomotic venous outflow was performed | | | using a 6 mm balloon. Post-angioplasty AV fistulogram demonstrates a | | | patent juxta-anastomotic venous outflow and existing stent without | | | significant stenosis. Attention was then directed towards the | | | stenosis involving the venous outflow in the mid upper arm. The | | | arterial limb of the left upper extremity AV fistula was accessed with | | | a 21-gauge micropuncture needle in antegrade fashion. Over a | | | guidewire, a 7 [place] sheath was advanced and positioned into the | | | arterial limb. Over a guidewire, balloon angioplasty of the | | | cephalic venous outflow stenosis in the mid upper arm was performed | | | using 8 mm balloon. Post-angioplasty AV fistula venogram | | | demonstrates improved appearance of the cephalic venous outflow with | | | moderate residual stenosis. Subsequently, over a guidewire, | | | balloon angioplasty of the cephalic venous outflow stenosis in the | | | upper arm was performed using a 10 mm balloon. Post-angioplasty AV | | | fistulogram demonstrates a patent cephalic venous outflow without | | | significant residual stenosis. All wires and catheters were | | | subsequently removed. Hemostasis achieved using purse string sutures. | | | Patient tolerated procedure well. No immediate complications. | | | EBL: Minimal. COMPLICATIONS: None. | | + + + + + | Procedure Note | + + | Cedric, Rad Conversion - 10/18/2018 9:20 PM PDT CLINICAL DATA: 20-year-old woman with | | left upper extremity AV fistula for hemodialysis. Poor flows and difficulty with | | cannulation associated with hemodialysis. PROCEDURES PERFORMED:1. IR GUIDANCE FOR | | ACCESS2. ADDITIONAL ACCESS FOR INTERVENTION3. IR DIALYSIS FISTULAGRAM4. IR ANGIOPLASTY | | AV FISTULA VENOUS BIG DATA SOFTWARE ENGINEER: Doyle Diaz MD CONSENT: The risks, benefits and | | alternatives of the procedure were discussed with the patient. Signed consent was given | | as witnessed by nursing staff. SEDATION: Moderate conscious sedation was administered | | during the procedure by the physician and nursing staff with continuous hemodynamic | | monitoring throughout the procedure. Total Sedation: Versed 4 mg; Fentanyl: 50 mcg; | | Dilaudid: 1 mg. Total Sedation Time: 50 min. ANTIBIOTIC PROPHYLAXIS: Ancef 2 g IV | | CONTRAST: 40 mL Isovue 300 FLUOROSCOPY TIME: 6.1 min, Dose 33 mGy | | TECHNIQUE/FINDINGS:Patient was placed supine on the fluoroscopy table. The left arm was | | prepped and draped in sterile fashion. Local anesthesia administered with 1% lidocaine. | | Under ultrasound guidance, the venous limb of the AV fistula was accessed in retrograde | | fashion using a 21-gauge micropuncture needle. Using a catheter guidewire combination, a | | 4 [place] angled catheter was advanced and positioned into the inflow brachial artery. | | Contrast was administered and a left upper extremity AV fistula venogram was performed | | in successive stations centrally. The AV anastomosis appears patent. In-stent stenosis | | involving an existing stent in the juxta-anastomotic venous outflow just downstream from | | the AV anastomosis. In addition, there is a focal stenosis involving the cephalic | | venous outflow at the level of the mid upper arm. The remainder of the cephalic venous | | outflow appears patent without significant stenosis. The central veins including the | | left axillary vein, left subclavian vein, left innominate vein and SVC appear patent. | | ANGIOPLASTY:Over a guidewire, a 6 [place]an sheath was advanced and positioned into the | | venous limb. Over a guidewire, angioplasty of the in-stent stenosis within the | | juxta-anastomotic venous outflow was performed using a 6 mm balloon. Post-angioplasty AV | | fistulogram demonstrates a patent juxta-anastomotic venous outflow and existing stent | | without significant stenosis. Attention was then directed towards the stenosis involving | | the venous outflow in the mid upper arm. The arterial limb of the left upper extremity | | AV fistula was accessed with a 21-gauge micropuncture needle in antegrade fashion. Over | | a guidewire, a 7 [place] sheath was advanced and positioned into the arterial limb. Over | | a guidewire, balloon angioplasty of the cephalic venous outflow stenosis in the mid | | upper arm was performed using 8 mm balloon. Post-angioplasty AV fistula venogram | | demonstrates improved appearance of the cephalic venous outflow with moderate residual | | stenosis. Subsequently, over a guidewire, balloon angioplasty of the cephalic venous | | outflow stenosis in the upper arm was performed using a 10 mm balloon. Post-angioplasty | | AV fistulogram demonstrates a patent cephalic venous outflow without significant | | residual stenosis. All wires and catheters were subsequently removed. Hemostasis | | achieved using purse string sutures. Patient tolerated procedure well. No immediate | | complications. EBL: Minimal. COMPLICATIONS: None. IMPRESSION: 1. In stent stenosis | | involving an existing stent within the juxta-anastomotic venous outflow, angioplastied | | using a 6 mm balloon. Post-angioplasty AV fistula venogram demonstrates a patent | | juxta-anastomotic stent without significant residual stenosis.2. Focal stenosis | | involving the mid cephalic venous outflow in the mid upper arm, angioplastied using a 10 | | mm balloon. Post-angioplasty AV fistula venogram demonstrates a patent cephalic venous | | outflow in the upper arm without significant residual stenosis. PLAN: Follow-up AVF | | venogram in 90 days. | | | |Post-angioplasty AV fistula venogram demonstrates improved appearance of the cephalic venou s outflow with moderate residual stenosis. | | | |Subsequently, over a guidewire, balloon angioplasty of the cephalic venous outflow stenosis in the upper arm was performed using a 10 mm balloon. | | | |Post-angioplasty AV fistulogram demonstrates a patent cephalic venous outflow without signi ficant residual stenosis. | | | |All wires and catheters were subsequently removed. Hemostasis achieved using purse string s utures. | | | |Patient tolerated procedure well. No immediate complications. | | | |EBL: Minimal. | | | |COMPLICATIONS: None. | | | |IMPRESSION: | |1. In stent stenosis involving an existing stent within the juxta-anastomotic venous outflo w, angioplastied using a 6 mm balloon. Post-angioplasty AV fistula venogram demonstrates a p atent juxta-anastomotic stent without significant residual stenosis. | |2. Focal stenosis involving the mid cephalic venous outflow in the mid upper arm, angioplas tied using a 10 mm balloon. Post-angioplasty AV fistula venogram demonstrates a patent cepha lic venous outflow in the upper arm without significant residual | |stenosis. | | | |PLAN: Follow-up AVF venogram in 90 days. | | | | | + + US Guided Vascular Access (08/13/2015 10:47 AM PDT) + + | Specimen | [...] | + + | Sonido Steele - 10/18/2018 9:20 PM PDT This Point of Care (POC) ultrasound | | image has been reviewed andinterpreted by the physician identified as the performing | | physician in theassociated interpretation and report. | | | + + Potassium (08/13/2015 8:17 AM PDT) + + + + + + | Component | Value | Ref Range | Performed | Pathologist | | | | | At | Signature | + + + + + + | K | 5.1 (H)Comment: MODERATE | 3.5 - 4.9 | EXTERNAL | | | | HEMOLYSISTesting | mmol/L | LAB | | | | performed at [facility] [place] | | | | | | [address];[place], [place] | | | | | | [address] | | | | + + + [...] + | ESRD (end stage renal disease) ([facility]) End stage renal disease | + + | ESRD on hemodialysis (HCC) End stage renal disease | + + documented in this encounter"
--- OUTSIDE RECORDS SUMMARY | ~2019-07-14 | XMS | Encounter Summary ---
Demographics + + + | Address | [address] | | | [place] [address] | + + + | Home Phone [...] + + + | Author | [facility] | | | and Josephana | + + + | Organization | [facility] | | | and Josephana [...] Team Providers + +------+ + | Care Band Builder Name | Role | Phone | + +------+ + PCP | Unavailable | + +------+ + Encounter Details +--------+ + + + + | Date | Type | Department | Care Team | Description | +--------+ + + + + | 12/29/ | Abstract | [facility] | Jorje Camp | | | 2016 | | NEPHROLOGY [address] | M, DO [address] | | | | | [address] | [place] | | | | | [place], [place] | [place], [place] | | | | | [address] | [address] | | | | | [phone] | | | +--------+ + + + [...] Palumbo - 12/29/2016 3:48 PM PDTOutside records: [facility] drug utilization revie w form confidential health information for Verna-Suresh RX 60.0MG/300.0MCG/10.0MG Tablet. Dos : 12/29/16. Sent to scan. P DTdocumented in this encounter Plan of Treatment Not on filedocumented as of this encounter Visit Diagnoses Not on filedocumented in this encounter"
--- OUTSIDE RECORDS SUMMARY | ~2019-07-14 | XMS | Encounter Summary ---
Demographics + + + | Address | [address] | | | [place] [address] | + + + | Home Phone [...] | | | | | [place] [address] | | + + + + + | Thania Mallory | ECON | [address] | | | | | [place] [address] | | + + + + + | Deidra Weldon | ECON | [address] | | | | | [place] | | | | | [address] | | + + + + + Care Team Providers + +------+ + | Care Parts Technician Name | Role | Phone | + +------+ + | Shahid Camargo MD | PCP | | + +------+ + Reason for Visit + + + | Reason | Comments | + + + | Social work | pt request to change clinic appt | | consultation | | + + [...] change | | | | Caro [facility] [place], | [place], [place] | clinic appt) | | | | [place] [address] | [address] | | | | | [phone] | | | +--------+ + + + [...] [place] | | | | | | [address] | | | | | | [phone] | | | | | | | | +--------+ + + + + documented as of this encounter Visit Diagnoses Not on filedocumented in this encounter"
--- OUTSIDE RECORDS SUMMARY | ~2019-07-14 | XMS | Encounter Summary ---
Demographics + + + | Address | [address] | | | [place] [address] | + + + | Home Phone [...] | | | | | [place] [address] | | + + + + + | Thania Mallory | ECON | [address] | | | | | [place] [address] | | + + + + + | Deidra Weldon | ECON | [address] | | | | | [place] | | | | | [address] | | + + + + + Care Team Providers + +------+ + | Care Banking Consultant Name | Role | Phone | [...] | Clinical | Kelsi Martinez, | Other (Fistula) | | 2014 | | Transplant Services | RN [address] | | | | | [address] | [facility] | | | | | [facility], | [place], [place] | | | | | [place] [address] | [address] | | | | | [phone] | | | +--------+ + + + [...] Denise | | | | | | [place] | | | | | | [address] | | | | | | [phone] | | | | | | | | +--------+ + + + + documented as of this encounter Visit Diagnoses Not on filedocumented in this encounter"
--- OUTSIDE RECORDS SUMMARY | ~2019-07-14 | XMS | Encounter Summary ---
Demographics + + + | Address | [address] | | | [place] [address] | + + + | Home Phone [...] | Author | [facility] | | | and [place]ana | + + + | Organization | [facility] | | | and [...] Team Providers + +------+ + | Care Recruiting Manager Name | Role | Phone | [...] | stage renal | [address] | [address] [place] [address] | | | | | disease) | Shun Griffin | [place] | | | | | ([facility]) | [address] | [address] | | | | | Anemia in | [place], [place] | [place] | | | | | ESRD | [address] | [address] Phone: | | | | | (end-stage | Phone: | [phone] | | | | | renal | [phone] | Fax: | | | | | disease) | Fax: | [phone] | | | | | ([facility]) | [phone] | | | | | | Procedures | | | | | | | [place] OFFICE | | | | | | [...] M, DO [address] | renal disease) ([facility]) | | | | [address] | [place], [address] | (Primary Dx); | | | | [place], [place] | [place], [place] | Anemia in ESRD | | | | [address] | [address] | (end-stage renal | | | | [phone] | | disease) ([facility]) | +--------+ + + + + Social [...] rechec k her in 2 weeks. CC: [place] Fina Joy MD, [facility] Transplant [facility], [facility] signed by Jorje Camp DO at 01/20/2015 5:14 PM PSTdocumented in this encount er Plan of Treatment Not on filedocumented as of this encounter Visit Diagnoses + + | Diagnosis | + + | ESRD (end stage renal disease) ([facility]) - Primary End stage renal disease | + + | Anemia in ESRD (end-stage renal disease) ([facility]) Anemia in chronic kidney disease | + + documented in this encounter"
--- OUTSIDE RECORDS SUMMARY | ~2019-07-14 | XMS | Encounter Summary ---
Demographics + + + | Address | [address] | | | [place] [address] | + + + | Home Phone [...] | | | | | [place] [address] | | + + + + + | Thania Mallory | ECON | [address] | | | | | [place] [address] | | + + + + + | Deidra Weldon | ECON | [address] | | | | | [place] | | | | | [address] | | + + + + + Care Team Providers + +------+ + | Care Youth Liaison Officer Name | Role | Phone | [...] 02/18/ | Telephone | Clinical | Kelsi Martinez, | Follow-up encounter | | 2015 | | Transplant Services | RN [address] | | | | | [address] | [facility] | | | | | [place], | [place], [place] | | | | | [place] [address] | [address] | | | | | [phone] | | | +--------+ + + + [...] [place] | | | | | | [address] | | | | | | [phone] | | | | | | | | +--------+ + + + + documented as of this encounter Visit Diagnoses Not on filedocumented in this encounter"
--- OUTSIDE RECORDS SUMMARY | ~2019-07-14 | XMS | Encounter Summary ---
Demographics + + + | Address | [address] | | | [place] [address] | + + + | Home Phone [...] | | | | | [place] [address] | | + + + + + | Thania Mallory | ECON | [address] | | | | | [place] [address] | | + + + + + | Deidra Weldon | ECON | [address] | | | | | [place] | | | | | [address] | | + + + + + Care Team Providers + +------+ + | Care Records Specialist Name | Role | Phone | [...] potential | | | | [facility] [place], | [place], [place] | donor/checking in | | | | [place] [address] | [address] | with SW) | | | | [phone] | | | +--------+ + + + [...] [place] | | | | | | [address] | | | | | | [phone] | | | | | | | | +--------+ + + + + documented as of this encounter Visit Diagnoses Not on filedocumented in this encounter"
--- OUTSIDE RECORDS SUMMARY | ~2019-07-14 | XMS | Encounter Summary ---
Demographics + + + | Address | [address] | | | [place] [address] | + + + | Home Phone [...] | | | | | [place] [address] | | + + + + + | Thania Mallory | ECON | [address] | | | | | [place] [address] | | + + + + + | Deidra Weldon | ECON | [address] | | | | | [place] | | | | | [address] | | + + + + + Care Team Providers + +------+ + | Care Assembler Finger Buffs Name | Role | Phone | + [...] on | | | | [facility] [place], | [place], [place] | psychosocial goals | | | | [place] [address] | [address] | related to listing | | | | [phone] | | status) | +--------+ + + [...] Denise | | | | | | [place], [place] | | | | | | [address] | | | | | | [phone] | | | | | | | | +--------+ + + + + documented as of this encounter Visit Diagnoses Not on filedocumented in this encounter"
--- OUTSIDE RECORDS SUMMARY | ~2019-07-14 | XMS | Encounter Summary ---
Demographics + + + | Address | [address] | | | [place] [address] | + + + | Home Phone [...] | | | | | [place] [address] | | + + + + + | Thania Mallory | ECON | [address] | | | | | [place] [address] | | + + + + + | Deidra Weldon | ECON | [address] | | | | | [place] | | | | | [address] | | + + + + + Care Team Providers + +------+ + | Care Virtual Office Assistant Name | Role | Phone [...] with | | | | [facility] [place], | [place], [place] | pt's dad) | | | | [place] [address] | [address] | | | | | [phone] | | | +--------+ + + + [...] [place] | | | | | | [address] | | | | | | [phone] | | | | | | | | +--------+ + + + + documented as of this encounter Visit Diagnoses Not on filedocumented in this encounter"
--- OUTSIDE RECORDS SUMMARY | ~2019-07-14 | XMS | Encounter Summary ---
Demographics + + + | Address | [address] | | | [place] [address] | + + + | Home Phone [...] | | | | | [place] [address] | | + + + + + | Thania aMllory | ECON | [address] | | | | | [place] [address] | | + + + + + | Deidra Weldon | ECON | [address] | | | | | [place] | | | | | [address] | | + + + + + Care Team Providers + +------+ + | Care Solar System Designer Name | Role | Phone | [...] | | | [place], | [place] [address] | | | | | [place] [address] | [phone] | | | | | | | [...] Denise | | | | | | [place], [place] | | | | | | [address] | | | | | | [phone] | | | | | | | [...] FLOW HLA AB PRA SCREEN I/II KE (07/09/2014 11:44 AM PDT) + + | Specimen | + + | Blood - Blood | + + + + + + + | Performing | Address | City/State/Zipcode | Phone Number | | Organization | | | | + + + + + | [facility] - | [address] | [place] [address] | | | IMMUNOGENETICS/TRANS | [address] | | | | [facility] | | | | + + + + + documented in this encounter Visit Diagnoses Not on filedocumented in this encounter"
--- OUTSIDE RECORDS SUMMARY | ~2019-07-14 | XMS | Encounter Summary ---
Demographics + + + | Address | [address] | | | [place] [address] | + + + | Home Phone | | + + + | Preferred Language | Unknown | + + + | Marital Status | Single | + + + | Hoahaoism Affiliation | Unknown | + + + | Race | Unknown | + + + | Ethnic Group | Unknown | + + + Author + + + | Author | [facility] | | | and [place]ana | + + + | Organization | [facility] | | | and Josephana [...] Team Providers + +------+ + | Care Strategic Marketing Leader Name | Role | Phone | + +------+ + PCP | Unavailable | + +------+ + Encounter Details +--------+ + + + + | Date | Type | Department | Care Team | Description | +--------+ + + + + | 07/10/ | Hospital | [facility] | | | | 2008 - | Encounter | MED CTR OP REHAB | | | | | | [address] | | | | 08/03/ | | [place] [address] | | | | 2008 | | [phone] | | | +--------+ + + + [...]
--- OUTSIDE RECORDS SUMMARY | ~2019-07-14 | XMS | Encounter Summary ---
Demographics + + + | Address | [address] | | | [place] [address] | + + + | Home Phone [...] | | | | | [place] [address] | | + + + + + | Thania Mallory | ECON | [address] | | | | | [place] [address] | | + + + + + | Deidra Weldon | ECON | [address] | | | | | [place] | | | | | [address] | | + + + + + Care Team Providers + +------+ + | Care Medical Claims Assistant Name | Role | Phone | [...] | | [address] | [address] | Evaluation | | | | [facility] [place], | [place] | (pre-listing | | | | [place] [address] | [address] | pediatric [place] | | | | [phone] | | update) | +--------+ + + [...] | | | | | | [place] | | | | | | [address] | | | | | | [phone] | | | | | | | | +--------+ + + + + documented as of this encounter Visit Diagnoses Not on filedocumented in this encounter"
--- OUTSIDE RECORDS SUMMARY | ~2019-07-14 | XMS | Encounter Summary ---
Demographics + + + | Address | [address] | | | [place] [address] | + + + | Home Phone [...] Author | [facility] | | | and Josephana | + + + | Organization | [facility] | | | [...] Team Providers + +------+ + | Care Phonograph Cartridge Assembler Name | Role | Phone | [...] [address] [place] | [place] [address] | | | | | [address] [place] [address] | [phone] | | | | | [address] | | | | | | [phone] | | | +--------+ + + + [...] + documented as of this encounter Progress Elodia Velasquez - 06/13/2018 1:58 PM PDTReferral Called lvm documented in thi s encounter Plan of Treatment Not on filedocumented as of this encounter Visit Diagnoses Not on filedocumented in this encounter"
--- OUTSIDE RECORDS SUMMARY | ~2019-07-14 | XMS | Encounter Summary ---
Demographics + + + | Address | [address] | | | [place] [address] | + + + | Home Phone [...] | | | | | [place] [address] | | + + + + + | Thania Mallory | ECON | [address] | | | | | [place] [address] | | + + + + + | Deidra Weldon | ECON | [address] | | | | | [place] | | | | | [address] | | + + + + + Care Team Providers + +------+ + | Care Hand Trucker Name | Role | Phone | + +------+ + PCP | Unavailable | + +------+ + Reason for Visit + + + | Reason | Comments | + + + | Refill Request | | + + + Encounter Details +--------+--------+ + + + | Date | Type | Department | Care Team | Description | +--------+--------+ + + + | 04/18/ | Refill | Pediatric | Sudhakar Joy | Refill Request | | 2011 | | Nephrology at | MD Emanuel [address] | | | | | [place] | [facility] | | | | | [facility] | [place], [place] | | | | | [address] | [address] | | | | | [place] | [phone] | | | | | [facility], | | | | | | [address] [place] [address] | | | | | | [place], [place] | | | | | | [address] | | | | | | [phone] | | | +--------+--------+ + + + [...] Denise | | | | | | [place], [place] | | | | | | [address] | | | | | | [phone] | | | | | | | | +--------+ + + + + documented as of this encounter Visit Diagnoses Not on filedocumented in this encounter"
--- OUTSIDE RECORDS SUMMARY | ~2019-07-14 | XMS | Encounter Summary ---
Demographics + + + | Address | [address] | | | [place] [address] | + + + | Home Phone [...] + | Author | [facility] | | | and [place]ana | + + + | Organization | [facility] | | | and [...] Team Providers + +------+ + | Care Shop Cooper Name | Role | Phone | + +------+ + | Jonathan Alonso MD | PCP | | + +------+ + Encounter Details +--------+ + + + + | Date | Type | Department | Care Team | Description | +--------+ + + + + | 03/27/ | Orders Only | [facility] | Rik Simon MD | | | 2014 | | VASCULAR SURGERY | [address] | | | | | ULTR[address] | [place], [place] | | | | | [address] | [address] | | | | | [place], [place] | [phone] | | | | | [address] | | | | | | [phone] | | | +--------+ + + + [...] At | + + + | [facility] | | [...] | + + | Sonido Steele - 10/26/2018 12:36 PM PDT DARA DEL [...]
--- OUTSIDE RECORDS SUMMARY | ~2019-07-14 | XMS | Encounter Summary ---
Demographics + + + | Address | [address] | | | [place] [address] | + + + | Home Phone [...] | Author | [facility] | | | and [place]ana | + + + | Organization | [facility] | | | and Josephana [...] Providers + +------+ + | Care Life Assurance Representative Name | Role | Phone | + +------+ + PCP | Unavailable | + +------+ + Encounter Details +--------+ + + + + | Date | Type | Department | Care Team | Description | +--------+ + + + + | 01/19/ | Abstract | [facility] | Jorje Camp | | | 2017 | | NEPHROLOGY [address] | M, DO [address] | | | | | [address] | [place] | | | | | [place], [place] | [place], [place] | | | | | [address] | [address] | | | | | [phone] | | | +--------+ + + + [...] documented as of this encounter Progress Notes Vira James - 01/19/2017 9:01 AM PSTOutside record: [facility] Sent to scanning. 9 :02 AM PSTdocumented in this encounter Plan of Treatment Not on filedocumented as of this encounter Visit Diagnoses Not on filedocumented in this encounter"
--- OUTSIDE RECORDS SUMMARY | ~2019-07-14 | XMS | Encounter Summary ---
Demographics + + + | Address | [address] | | | [place] [address] | + + + | Home Phone [...] | [facility] | | | and [place] | + + + | Organization | [facility] | | | and Josephana [...] Team Providers + +------+ + | Care Promotional Demonstrator Name | Role | Phone | + +------+ + PCP | Unavailable | + +------+ + Encounter Details +--------+ + + + + | Date | Type | Department | Care Team | Description | +--------+ + + + + | 10/27/ | Orders Only | [facility] | Jorje Camp | | | 2014 | | NEPHROLOGY [address] | M, DO [address] | | | | | [address] | [place] | | | | | [place], [place] | [place], [place] | | | | | [address] | [address] | | | | | [phone] | | | +--------+ + + + [...]
--- OUTSIDE RECORDS SUMMARY | ~2019-07-14 | XMS | Encounter Summary ---
Demographics + + + | Address | [address] | | | [place] [address] | + + + | Home Phone [...] | Author | [facility] | | | and [place] | + + + | Organization | [facility] | | | and Josephana [...] Providers + +------+ + | Care Sql Developer Name | Role | Phone | + +------+ + PCP | Unavailable | + +------+ + Encounter Details +--------+ + + + + | Date | Type | Department | Care Team | Description | +--------+ + + + + | 05/01/ | Documentati | [facility] | Jorje Camp | | | 2018 | on | NEPHROLOGY [address] | M, DO [address] | | | | | [address] | [place] | | | | | [place], [place] | [place], [place] | | | | | [address] | [address] | | | | | [phone] | | | +--------+ + + + [...] + + + | Blood Pressure | 140/87 | 05/01/2017 4:13 PM | | | | | PST | | + + + + + | Pulse | - | - | | + + + + + | Temperature | 36.5 C (97.7 F) | 05/01/2017 4:13 PM | | | | | PST [...] encounter Progress Notes Jorje Camp DO - 05/01/2017 11:59 PM PST Subjective: DIALYSIS NOTE Patient ID: Dara Weldon is a 22 y.o. female. 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 She also has anemia secondary to CKD, SHPTH, centripetal o besity. Unfortunately her biggest difficulty still appears to be absenteeism from her scheduled kavita atments. She is pleasant when she arrives but falls out of contact with the dialysis staff in clinical technologist on a frequent basis. Outpatient Prescriptions Marked as Taking for the 05/01/17 encounter (Documentation) with Kimberly Camp DO Medication Sig Dispense Refill albuterol 90 mcg/puff inhaler Inhale 2 puffs into the lungs every 6 hours as needed for Wheezing. 1 Inhaler 11 cinacalcet (SENSIPAR) 90 MG tablet Take 1 tablet by mouth Daily (with dinner). 30 table t 11 clopidogrel (PLAVIX) 75 mg tablet Take 1 tablet by mouth Daily. 30 tablet 11 doxercalciferol (HECTOROL) 2 mcg/mL injection Inject 2 mcg into the vein Three times a [...] the vein Once a week. losartan (COZAAR) 25 mg tablet Take one tablet PO four times per week on non-dialysis d ays 48 tablet 5 norethindrone (MICRONOR) 0.35 MG tablet Take 1 tablet by mouth Daily. 28 tablet 11 27-0.8 mg multivitamin tablet Take 1 tablet by mouth Daily. 30 tablet 11 raNITIdine (ZANTAC) 300 MG capsule Take 1 capsule by mouth every evening. 30 capsule 11 sevelamer carbonate (RENVELA) 800 mg tablet Take 4 tablets by mouth with meals and 3 ta blets with snacks 360 tablet 11 Allergies Allergen Reactions Adhesive & Tape Rash Certain tapes Morphine Itching and Rash Lisinopril cough Objective: BP 140/87 | Temp 36.5 C (97.7 F) EDW 79 kg Physical Exam Heart: Regular rate and rhythm with no S3, S4, murmur or rub. Lungs: CTA bilaterally. No rales or wheezes. Abdomen: Soft, obese, nontender, normoactive bowel sounds.. Extremities: No clubbing, cyanosis, or edema. LAB: BUN 49, Cr 8.59, K+ 4.3, HCO3 26, Ca++ 9.7, albumin 3.8, phosphorus 6.8, PTH 1201, Hb 11.2, TSat 15%, ferritin 364, eKT/V = 1.51. Assessment: 1. ESRD--adequacy is better this month. Apparently, the last 3 weeks she is doing better with scheduled attendance. 2. Hypertension-- she is resistant on lisinopril to improve her blood pressure control a nd also for its cardioprotective effect. 3. SHPTH-- long-term phosphorus control has been an uphill fish. She appears to not gra sp the significance of this.also, I have discussed parathyroidectomy minutes added benefits. above she will not consider that also. 4. Nutrition-- appetite is good, however her how balanced her outpatient diet is? 6. Anemia-- she is improving she is obtaining her scheduled EPO injections in the last 3 weeks.transferrin sat is suboptimal and she will be getting a course of IV Venofer. 7. 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 8. 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 9. Transplantation--not at all a candidate and at high risk for graft loss due to her stevie turity and lack of insight into her CKD. 10. Self-destructive behavior--she is repeatedly not agreeable to professional counseling. Plan: 1. I encouraged she'll be that she is doing a better job with compliance with her treatmen t schedule. 2. She'll receive IV iron, Venofer, peripheral to help improve her transferrin saturation 3. I continue to offer her professional counseling, as did the charge nurse that she refus santo. 4. She will be rechecked in 2 weeks. : [place] Fina documented in thi s encounter Plan of Treatment Not on filedocumented as of this encounter Visit Diagnoses + + | Diagnosis | + + | ESRD (end stage renal disease) (HCC) - Primary End stage renal disease | + + documented in this encounter"
--- OUTSIDE RECORDS SUMMARY | ~2019-07-14 | XMS | Encounter Summary ---
Demographics + + + | Address | [address] | | | [place] [address] | + + + | Home Phone [...] Author | [facility] | | | and Josephana | + + + | Organization | [facility] | | | and Josephana [...] Team Providers + +------+ + | Care Silvering Department Supervisor Name | Role | Phone | + +------+ + PCP | Unavailable | + +------+ + Encounter Details +--------+ + + + + | Date | Type | Department | Care Team | Description | +--------+ + + + + | 02/13/ | Abstract | [facility] | Jorje Camp | | | 2017 | | NEPHROLOGY [address] | M, DO [address] | | | | | [address] | [place] | | | | | [place], [place] | [place], [place] | | | | | [address] | [address] | | | | | [phone] | | | +--------+ + + + [...] this encounter Progress Notes Marilyn Palumbo - 02/13/2017 8:57 AM PSTOutside record: New patient starter program from [facility], dos: 02/12/17. Sent to [facility].Electronically signed by Marilyn Palumbo at 017 8:58 AM PSTdocumented in this encounter Plan of Treatment Not on filedocumented as of this encounter Visit Diagnoses Not on filedocumented in this encounter"
--- OUTSIDE RECORDS SUMMARY | ~2019-07-14 | XMS | Encounter Summary ---
Demographics + + + | Address | [address] | | | [place] [address] | + + + | Home Phone | | + + + | Preferred Language | Unknown | + + + | Marital Status | Single | + + + | Sabianist Affiliation | Unknown | + + + | Race | Unknown | + + + | Ethnic Group | Unknown | + + + Author + + + | Author | [facility] | | | and Josephana | + + + | Organization | [facility] | | | and [...] Providers + +------+ + | Care Double Head Machine Operator Name | Role | Phone [...] | | | | [address] | [place], [place] | [place], [place] | | | | | stage renal | [address] | [address] Phone: | | | | | disease | Phone: | [phone] | | | | | ([facility]) | [phone] | Fax: | | | | | Infection | Fax: | [phone] | | | | | and | [phone] | | | | | | inflammatory | | | | | | | reaction | | | | | | | due to | | | | | | | peritoneal | | | | | | | dialysis | | | | | | | catheter | | | | | | | Procedures | | | | | | | NM OFFICE | | | | | | | OUTPATIENT | | | | | | | VISIT 25 | | | | | | | MINUTES | | | +--------+--------+ + + + + Encounter Details +--------+ + + + + | Date | Type | Department | Care Team | Description | +--------+ + + + + | 04/28/ | Off-Site | [facility] [place] | Jorje Camp | ESRD (end stage | | 2015 | Visit | NEPHROLOGY [address] | M, DO [address] | renal disease) ([facility]) | | | | [address] | [place] | (Primary Dx); | | | | [address], [place] | [place], [place] | Anemia in ESRD | | | | [address] | [address] | (end-stage renal | | | | [phone] | | disease) ([facility]) | +--------+ + + + + [...] + + + | Blood Pressure | 141/80 | 04/28/2014 10:49 AM | | | | | PST | | + + + + + | Pulse | - | - | | + + + + + | Temperature | 36.6 C (97.8 F) | 04/28/2014 10:49 AM | | | | | PST [...] encounter Progress Notes Jorje Camp DO - 05/06/2014 10:49 AM PST Subjective: DIALYSIS NOTE Patient ID: Dara Weldon is a 19 y.o. female. 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 She also has anemia secondary to CKD, SHPTH, centripetal obesity . She is matriculating full-time in her senior year in high school. She does attend all her treatme nts. She had a left arm radiocephalic AVF constructed on 02/24/14. Outpatient Prescriptions Marked as Taking for the 04/28/14 encounter (Off-Site Visit) with Camille Camp DO Medication Sig Dispense Refill cholecalciferol (VITAMIN D-3) 1,000 units tablet Take 1,000 Units by mouth Daily. cinacalcet (SENSIPAR) 30 mg tablet Take 30 mg by mouth Daily (with dinner). doxercalciferol (HECTOROL) 2 mcg/mL injection Inject 1 mcg into the vein Three times a week. Epoetin Andres (EPOGEN IJ) 2,200 Units by IV Push route Three times a week. furosemide (LASIX) 80 mg tablet Take 1 tablet by mouth Daily. 60 tablet 4 [DISCONTINUED] HYDROcodone-acetaminophen (NORCO) 5-325 mg per tablet Take 1-2 tablets b y mouth every 4 hours as needed for Pain. 20 tablet 0 Iron Sucrose (VENOFER IV) Inject 100 mg into the vein Three times a week. renal multivitamin (DIALYVITE, VOL-CARE) TABS Take 1 tablet by mouth every evening. 90 tablet 4 sevelamer carbonate (RENVELA) 800 mg tablet Take 2,400 mg by mouth 3 times daily (with meals). 3 tablets with meals and 2 tablets with snacks No Facility-Administered Medications for the 04/28/14 encounter (Off-Site Visit) with Armando Camp DO. Allergies Allergen Reactions Adhesive & Tape Rash Certain tapes Morphine Itching and Rash Objective: BP 141/80 | Temp(Src) 36.6 C (97.8 F) EDW 95 kg Physical Exam Heart: Regular rate and rhythm with no S3, S4, murmur or rub. Lungs: CTA bilaterally. No rales or wheezes. Abdomen: Soft, obese, nontender, normoactive bowel sounds. Extremities: No clubbing, cyanosis, or edema. (+) Left arm AVF is approximately 3-4 mm wi th a (+) bruit. LAB: BUN 42, Cr 10.78, K+ 4.2, HCO3 25, Ca++ 9.1, phosphorus 7.5, PTH 803, albumin 4.2, Hb 11.5, TSat = 35%, ferritin 874, spKT/V = 1.91. Assessment: 1. ESRD--she appears well dialyzed on the current Rx. AVF is maturing but still not ready to be cannulated. It likely will require approximately 12 weeks from construction. 2. Hypertension--her BP is low normal, however, she is not on vasodilators. 3. SHPTH--serum phosphorus is markedly higher. This likely resulted in the increase in PT H. I reviewed with her the features of a 1000 mg phosphorus restriction, as well as need to specifically take her Renvela before meals and at bedtime. Will follow her PTH monthly for now. 4. Nutrition--she does have some problems with centripetal obesity. She appears to have a somewhat sedentary lifestyle. I encouraged her to try walking at least 30 minutes daily, w precious consuming a diet rich in high biological value protein. 5. Transplantation--overall think she would be an excellent candidate. 6. Anemia-- Hb is above target. Will hold her EPO for now until the Hb <11.0 g/dl. Plan: 1. I reinforced a low phosphorus diet, and need for her percent compliance with Renvela t o avoid end organ damage from hyperphosphatemia. 2. I think that her AVF will continue to mature with time. I reinforced with her that she made an excellent decision to have this constructed. 3. Will hold EPO and recheck her Hb in one week. CC: [place] Fina Joy MD, [facility], [facility] Blake Chavarria MD, FACS documented in thi s encounter Plan of Treatment Not on filedocumented as of this encounter Visit Diagnoses + + | Diagnosis | + + | ESRD (end stage renal disease) ([facility]) - Primary End stage renal disease | + + | Anemia in ESRD (end-stage renal disease) ([facility]) Anemia in chronic kidney disease | + + documented in this encounter"
--- OUTSIDE RECORDS SUMMARY | ~2019-07-14 | XMS | Encounter Summary ---
Demographics + + + | Address | [address] | | | [place] [address] | + + + | Home Phone [...] + | Author | [facility] | | | and Josephana | + + + | Organization | [facility] | | | and [...] Team Providers + +------+ + | Care Wound Care Center Consultant Name | Role | Phone | + +------+ + PCP | Unavailable | + +------+ + Encounter Details +--------+ + + + + | Date | Type | Department | Care Team | Description | +--------+ + + + + | 02/20/ | Hospital | [facility] | Nereida Roberson | | | 2007 | Encounter | CONVERSION | MD [facility] | | | | | [address]PART[address] [place] | [place] [address] | | | | | [place], [place] | [phone] | | | | | [address] | | | | | | [phone] | | | +--------+ + + + [...]
--- OUTSIDE RECORDS SUMMARY | ~2019-07-14 | XMS | Encounter Summary ---
Demographics + + + | Address | [address] | | | [place] [address] | + + + | Home Phone [...] | | | | | [place] [address] | | + + + + + | Thania Mallory | ECON | [address] | | | | | [place] [address] | | + + + + + | Deidra Weldon | ECON | [address] | | | | | [place] | | | | | [address] | | + + + + + Care Team Providers + +------+ + | Care Compliance Auditor Name | Role | Phone | + [...] | 2013 | | Transplant Services | PRE PAROLE COUNSELING AIDE [place], [place] | Update | | | | [address] | [address] | | | | | [place], | | | | | | [place] [address] | | | | | | [phone] | | | +--------+ + + + [...] | | 2022 | Encounter | | [address] | | | | | | [place] | | | | | | [address] | | | | | | [phone] | | | | | | | | +--------+ + + + + documented as of this encounter Visit Diagnoses Not on filedocumented in this encounter"
--- OUTSIDE RECORDS SUMMARY | ~2019-07-14 | XMS | Encounter Summary ---
Demographics + + + | Address | [address] | | | [place] [address] | + + + | Home Phone | | + + + | Preferred Language | Unknown | + + + | Marital Status | Single | + + + | Mandaen Affiliation | Unknown | + + + | Race | Unknown | + + + | Ethnic Group | Unknown | + + + Author + + + | Author | [facility] | | | and Josephana | + + + | Organization | [facility] | | | and [...] Team Providers + +------+ + | Care Strip Roller Name | Role | Phone | + [...] | | [address] | [place] | | | | | [place], [place] | [place], [place] | | | | | [address] | [address] | | | | | [phone] | | | +--------+--------+ + + + [...]
--- OUTSIDE RECORDS SUMMARY | ~2019-07-14 | XMS | Encounter Summary ---
Demographics + + + | Address | [address] | | | [place] [address] | + + + | Home Phone [...] | | | | | [place] [address] | | + + + + + | Thania Mallory | ECON | [address] | | | | | [place] [address] | | + + + + + | Deidra Weldon | ECON | [address] | | | | | [place] | | | | | [address] | | + + + + + Care Team Providers + +------+ + | Care Special Agent In Charge Name | Role | Phone | + [...] | [address] | consultation (ANNALISA | | | | [address] | [address] | assistance with SSA) | | | | [address] [place], | [place], [place] | | | | | [place] [address] | [address] | | | | | [phone] | | | +--------+ + + + [...] Denise | | | | | | [place] | | | | | | [address] | | | | | | [phone] | | | | | | | | +--------+ + + + + documented as of this encounter Visit Diagnoses Not on filedocumented in this encounter"
--- OUTSIDE RECORDS SUMMARY | ~2019-07-14 | XMS | Encounter Summary ---
Demographics + + + | Address | [address] | | | [place] [address] | + + + | Home Phone [...] | | | | | [place] [address] | | + + + + + | Thania Mallory | ECON | [address] | | | | | [place] [address] | | + + + + + | Deidra Weldon | ECON | [address] | | | | | [place] | | | | | [address] | | + + + + + Care Team Providers + +------+ + | Care Instrumentation Chemist Name | Role | Phone | + [...] | | | | [address] | [address] | clinic check-in) | | | | Dea [address], Room | [place], [place] | | | | | [address] [place], [place] | [address] | | | | | [address] | | | | | | [phone] | | | +--------+ + + + [...] Denise | | | | | | [place] | | | | | | [address] | | | | | | [phone] | | | | | | | | +--------+ + + + + documented as of this encounter Visit Diagnoses Not on filedocumented in this encounter"
--- OUTSIDE RECORDS SUMMARY | ~2019-07-14 | XMS | Encounter Summary ---
Demographics + + + | Address | [address] | | | [place] [address] | + + + | Home Phone [...] | | | | | [place] [address] | | + + + + + | Thania Mallory | ECON | [address] | | | | | [place] [address] | | + + + + + | Deidra Weldon | ECON | [address] | | | | | [place] | | | | | [address] | | + + + + + Care Team Providers + +------+ + | Care Funeral Limousine Driver Name | Role | Phone | [...] | | | [address] | [facility] | | | | | [address] [place], | [place], [place] | | | | | [place] [address] | [address] | | | | | [phone] | | | +--------+ + + + [...] Denise | | | | | | [place] | | | | | | [address] | | | | | | [phone] | | | | | | | | +--------+ + + + + documented as of this encounter Visit Diagnoses Not on filedocumented in this encounter"
--- OUTSIDE RECORDS SUMMARY | ~2019-07-14 | XMS | Encounter Summary ---
Demographics + + + | Address | [address] | | | [place] [address] | + + + | Home Phone [...] | | | | | [place] [address] | | + + + + + | Thania Mallory | ECON | [address] | | | | | [place] [address] | | + + + + + | Deidra Weldon | ECON | [address] | | | | | [place] | | | | | [address] | | + + + + + Care Team Providers + +------+ + | Care Ware Dresser Name | Role | Phone | + [...] | | | [address] | [facility] | | | | | [place], | [place], [place] | | | | | [place] [address] | [address] | | | | | [phone] | | | +--------+ + + + [...] Denise | | | | | | [place] | | | | | | [address] | | | | | | [phone] | | | | | | | | +--------+ + + + + documented as of this encounter Visit Diagnoses Not on filedocumented in this encounter"
--- OUTSIDE RECORDS SUMMARY | ~2019-07-14 | XMS | Encounter Summary ---
Demographics + + + | Address | [address] | | | [place] [address] | + + + | Home Phone [...] + + + | Author | [facility] | | | and Josephana | + + + | Organization | [facility] | | | and [...] Team Providers + +------+ + | Care Documentation Improvement Specialist Name | Role | Phone | [...] M, DO [address] | renal disease) ([facility]) | | | | [address] | [place] | (Primary Dx) | | | | [place], [place] | [place], [place] | | | | | [address] | [address] | | | | | [phone] | | | +--------+ + + + [...] of documents of Clinic Attendance here at [facility], with the nutrition teacher, Elisabeth Quijano RN. Outpatient Prescriptions Marked as [...] A&O x3, at this point. 3. [facility] her every opportunity to succeed here at the Clinic in [place]. 4. Will recheck her in 2 weeks. : [place] Fina documented in thi s encounter Plan of Treatment Not on filedocumented as of this encounter Visit Diagnoses + + | Diagnosis | + + | ESRD (end stage renal disease) (HCC) - Primary End stage renal disease | + + documented in this encounter"
--- OUTSIDE RECORDS SUMMARY | ~2019-07-14 | XMS | Encounter Summary ---
Demographics + + + | Address | [address] | | | [place] [address] | + + + | Home Phone [...] | Author | [facility] | | | and Josephana | + + + | Organization | [facility] [...] Providers + +------+ + | Care Rn Hemodialysis Charge Name | Role | Phone | [...] | +--------+ + + + + | 09/20/ | Documentati | [facility] [place] | Daniela Ibarra W, | Dialysis | | 2013 | on | NEPHROLOGY [address] | MD [address] | (Asymptomatic) | | | | [address] | [address] [place] | | | | | [place], [place] | [place] [address] | | | | | [address] | [phone] | | | | | [phone] | | | +--------+ + + + [...] of this encounter Progress Marilyn Jennings - 09/30/2013 11:04 AM PDTHEMO progress note manually faxed to [facility] [place], e-faxed to [facility] on 09/30. Daniela Marquez MD - 09/20/2013 2:55 PM PDT Comprehensive Dialysis Monthly Note Date of visit: 09/20/2013 Dialysis Clinic: [facility] Mode of dialysis: Hemodialysis Dialysis prescription: MWF, t=4 hrs, Na 138, K 3, bicarb 30, BFR 450, EDW 93 kg HPI: Dara Weldon is a 18 y.o. female with ESRD on hemodialysis. Pt reports feeling well. Pt denies shortness of breath, chest pain, edema, abdominal pain, fever. Pt reports she will be seeing Dr. Joy (peds nephrology) next month. Pt reports she has been swimming with chest catheter; pt reports she covers the site/cathet er with waterproof dressing with tape around the catheter. PROBLEM LIST: Patient Active Problem List Diagnosis Date Noted ESRD (end stage renal disease) ([facility]) Priority: High Note Last Updated: 07/29/2013 Due to Henoch-Schonlein purpura. On hemodialysis, started July 2013. Prior on peritoneal dialysis, started 2012. Access: R chest catheter. Peritonitis, dialysis-associated ([facility]) 07/29/2013 Note Last Updated: 07/29/2013 Due to MSSA. Had tunneled infection as well. PD catheter removed in July 2013. On Keflex till 08/01/13. History of Henoch-Schonlein purpura Note Last Updated: 07/29/2013 Diagnosed at age 10[address] Joy, process control supervisor. Anemia in ESRD (end-stage renal disease) (HCC) Secondary hyperparathyroidism (HCC) Obesity No Known Allergies Outpatient Prescriptions Marked as Taking for the 09/20/13 encounter (Documentation) with Kerwin Ibarra MD Medication Sig Dispense Refill cholecalciferol [...] and 2 tablets with snacks EXAM: T 97.9, HR 76, BP 113/75, weight 94.5 kg, gain 1.5 kg Constitutional: Appears well-developed and well-nourished. No distress. Cardiovascular: Normal rate, regular rhythm and normal heart sounds. No gallop, murmur, or friction rub. No peripheral edema. Lungs: Respiratory effort normal and breath sounds normal. No crackles or wheezes. Abdominal: Soft. Bowel sounds are normal. Neurological: Alert. Dialysis Access: R chest catheter in place, no evidence of exit site infection. DIALYSIS LABS: Na 139, K 4.6, bicarb 24, BUN 35, Cr 8.7 Albumin 3.7 (3.4), Ca 9.1, phos 3.9, PTH 207 URR 77%, eKt/v 1.5 ASSESSMENT AND PLAN: 1. ESRD: Dialysis clearance is at goal. 2. Access: R chest catheter. Advised pt to not submerge chest catheter in water. Need to keep site clean and dry. 3. HTN/volume: Clinic BP is acceptable. Volume status appears stable. EDW 93 kg appears jim ropriate. 4. Anemia due to ESRD: Hb at goal. On ESTEFANY. On maintenance Venofer. 5. Mineral bone disease: Serum calcium and phosphorous levels are at goal. PTH is at goal. -will continue Sensipar 30 mg QDAY -continue Renvela at current dose 6. Acid-base: Serum bicarb is acceptable. 7. Nutrition: Serum albumin is improving. 8. Transplantation: Pt's father, Clayton, is a potential living donor. Pt has been referred to [facility]. -pt will f/u with them next month [facility], [facility] Pediatric Nephrology documented in this encounter Plan [...]
--- OUTSIDE RECORDS SUMMARY | ~2019-07-14 | XMS | Encounter Summary ---
Demographics + + + | Address | [address] | | | [place] [address] | + + + | Home Phone [...] | | | | | [place] [address] | | + + + + + | Thania Mallory | ECON | [address] | | | | | [place] [address] | | + + + + + | Deidra Weldon | ECON | [address] | | | | | [place] | | | | | [address] | | + + + + + Care Team Providers + +------+ + | Care Supervisor Files Name | Role | Phone | + [...] | | | | | [address] [place], | | | | | | [place] [address] | | | +--------+ + + + [...] [place] | | | | | | [address] | | | | | | [phone] | | | | | | | [...] [facility] - | [address], | [place] [address] | | | IMMUNOGENETICS/TRANS | [address] | | | | [facility] | | | | + + + + + documented in this encounter Visit Diagnoses Not on filedocumented in this encounter"
--- OUTSIDE RECORDS SUMMARY | ~2019-07-14 | XMS | Encounter Summary ---
Demographics + + + | Address | [address] | | | [place] [address] | + + + | Home Phone [...] + | Author | [facility] | | | and Josephana | + + + | Organization | [facility] [...] Team Providers + +------+ + | Care Emergency Communications Operator Name | Role | Phone | + +------+ + PCP | Unavailable | + +------+ + Reason for Visit + + + | Reason | Comments | + + + | Procedure | Question | + + + Encounter Details +--------+ + + + + | Date | Type | Department | Care Team | Description | +--------+ + + + + | 02/21/ | Telephone | [facility] | Blake Chavarria | Procedure (Question) | | 2013 | | SURGERY [address] | MD Antonieta, FACS [address] | | | | | [place], [place] | [address] [facility] | | | | | [address] | [place] [address] | | | | | [phone] | [phone] | | | | | | | [...]
--- OUTSIDE RECORDS SUMMARY | ~2019-07-14 | XMS | Encounter Summary ---
Demographics + + + | Address | [address] | | | [place] [address] | + + + | Home Phone [...] | | | | | [place] [address] | | + + + + + | Thania Mallory | ECON | [address] | | | | | [place] [address] | | + + + + + | Deidra Weldon | ECON | [address] | | | | | [place] | | | | | [address] | | + + + + + Care Team Providers + +------+ + | Care Parcel Carrier Name | Role | Phone | + [...] | | | [address] | [facility] | | | | | [address] [place] [place], | [place], [place] | | | | | [place] [address] | [address] | | | | | [phone] | | | +--------+ + + + [...] [place] | | | | | | [address] | | | | | | [phone] | | | | | | | | +--------+ + + + + documented as of this encounter Visit Diagnoses Not on filedocumented in this encounter"
--- OUTSIDE RECORDS SUMMARY | ~2019-07-14 | XMS | Encounter Summary ---
Demographics + + + | Address | [address] | | | [place] [address] | + + + | Home Phone | | + + + | Preferred Language | Unknown | + + + | Marital Status | Single | + + + | Anabaptism Affiliation | Unknown | + + + | Race | Unknown | + + + | Ethnic Group | Unknown | + + + Author + + + | Author | [facility] | | | and Josephana | + + + | Organization | [facility] [...] Team Providers + +------+ + | Care Crop Grain Or Livestock Farmer Name | Role | Phone | + +------+ + PCP | Unavailable | + +------+ + Encounter Details +--------+ + + + + | Date | Type | Department | Care Team | Description | +--------+ + + + + | 12/08/ | Abstract | [facility] [place] | Daniela Ibarra, | | | 2016 | | NEPHROLOGY [address] | [address] | | | | | [address] | [address] [place] | | | | | [place], [place] | [place] [address] | | | | | [address] | [phone] | | | | | [phone] | | | +--------+ + + + [...] this encounter Progress Notes Marilyn Palumbo - 12/08/2016 1:54 PM PDTOutside record: Disability verification form rec eived from Navin Casanova housing assistant property manager, [facility] regarding housing, do s: 12/08/16. Sent to scan. P DTdocumented in this encounter Plan of Treatment Not on filedocumented as of this encounter Visit Diagnoses Not on filedocumented in this encounter"
--- OUTSIDE RECORDS SUMMARY | ~2019-07-14 | XMS | Encounter Summary ---
Demographics + + + | Address | [address] | | | [place] [address] | + + + | Home Phone [...] Author | [facility] | | | and Josephana | + + + | Organization | [facility] | | | and [...] Team Providers + +------+ + | Care Line Person Name | Role | Phone | [...] to | | | obtain one in [place]. I explained that we would have to [...] | | KIDNEY TRANSPLANT | [address] [place], | (Dara whelan so I | | | | [address] [place] | [place] [address] | called her back to | | | | [address] [place], [place] | [phone] | complete intake | | | | [address] | | questionnaire. She | | | | [phone] | | currently ingests | | | [...] | | | | | one in [place]. I | | | | | | [...] she would have to obtain one in [place]. I explained that we would have to [...]
--- OUTSIDE RECORDS SUMMARY | ~2019-07-14 | XMS | Encounter Summary ---
Demographics + + + | Address | [address] | | | [place] [address] | + + + | Home Phone [...] + + + | Author | [facility] | | | and Josephana | + + + | Organization | [facility] | | | and Josephana [...] Team Providers + +------+ + | Care Player Manager Name | Role | Phone | [...] | stage renal | [address] | [address] [place] [address] | | | | | disease) | Shun Griffin | [place] | | | | | ([facility]) | [address] | [address] [place] | | | | | Anemia in | [place], [place] | [place] | | | | | ESRD | [address] | [address] Phone: | | | | | (end-stage | Phone: | [phone] | | | | | renal | [phone] | Fax: | | | | | disease) | Fax: | [phone] | | | | | ([facility]) | [phone] | | | | | | Procedures [...] | | [address] | [place], [address] [address] | (Primary Dx) | | | | [place], [place] | [place], [place] | | | | | [address] | [address] | | | | | [phone] | | | +--------+ + + + [...] AM PDT Subjective: DIALYSIS NOTE Patient ID: Draa Weldon is a 21 y.o. female. HPI [...] parathyroidectomy she should let myself or the propellant charge zone assembler no. She will be rechecked in 2 weeks. : [place] documented in t his encounter Plan of Treatment Not on filedocumented as of this encounter Visit Diagnoses + + | Diagnosis | + + | ESRD (end stage renal disease) (HCC) - Primary End stage renal disease | + + documented in this encounter"
--- OUTSIDE RECORDS SUMMARY | ~2019-07-14 | XMS | Encounter Summary ---
Demographics + + + | Address | [address] | | | [place] [address] | + + + | Home Phone [...] | + + + + + | Croy Weldon | ECON | [address] | | | | | [place] [address] | | + + + + + | Thania Mallory | ECON | [address] | | | | | [place] [address] | | + + + + + | Deidra Weldon | ECON | [address] | | | | | [place] | | | | | [address] | | + + + + + Care Team Providers + +------+ + | Care Lending Activities Supervisor Name | Role | Phone | [...] Elias | [facility] | | | | | [facility], | [place], [place] | | | | | [place] [address] | [address] | | | | | [phone] | | | +--------+ + + + [...] [place] | | | | | | [address] | | | | | | [phone] | | | | | | | | +--------+ + + + + documented as of this encounter Visit Diagnoses Not on filedocumented in this encounter"
--- OUTSIDE RECORDS SUMMARY | ~2019-07-14 | XMS | Encounter Summary ---
Demographics + + + | Address | [address] | | | [place] [address] | + + + | Home Phone [...] + + + | Author | [facility] | | | and Josephana | + + + | Organization | [facility] | | | and Josephana | [...] Team Providers + +------+ + | Care Him Assistant Name | Role | Phone | + +------+ + PCP | Unavailable | + +------+ + Encounter Details +--------+ + + + + | Date | Type | Department | Care Team | Description | +--------+ + + + + | 04/08/ | Hospital | [facility] OP | Sudhakar Joy | | | 2009 | Encounter | JOY | MD Emanuel [address] | | | | | [address] | [facility] | | | | | [address] | [place], [place] | | | | | [place], [place] | [address] | | | | | [address] | [phone] | | | | | [phone] | | | +--------+ + + + [...]
--- OUTSIDE RECORDS SUMMARY | ~2019-07-14 | XMS | Encounter Summary ---
Demographics + + + | Address | [address] | | | [place] [address] | + + + | Home Phone [...] | Author | [facility] | | | and Josephana | + + + | Organization | [facility] | | | and [...] Team Providers + +------+ + | Care Liner Reroll Tender Name | Role | Phone | [...] NEPHROLOGY [address] | [place] [address] | | | | | [address] | [address] [place] | | | | | [place], [place] | [place] [address] | | | | | [address] | [phone] | | | | | [phone] | | | +--------+ + + + [...]
--- OUTSIDE RECORDS SUMMARY | ~2019-07-14 | XMS | Encounter Summary ---
Demographics + + + | Address | [address] | | | [place] [address] | + + + | Home Phone [...] + | Author | [facility] | | | and Josephana | + + + | Organization | [facility] | [...] Providers + +------+ + | Care Manager Non Profit Name | Role | Phone | + [...] | | | | [address] | [place], [place] | [place], [place] | | | | | stage renal | [address] | [address] Phone: | | | | | disease | Phone: | [phone] | | | | | ([facility]) | [phone] | Fax: | | | | | Infection | Fax: | [phone] | | | | | and | [phone] | | | | | | inflammatory | | | | | | | reaction | | | | | | | due to | | | | | | | peritoneal | | | | | | | dialysis | | | | | | | catheter | | | | | | | Procedures | | | | | | | [place] OFFICE | | | | | | [...] | 10/28/ | Off-Site | [facility] | Jorje Camp | Anemia in ESRD | | 2014 | Visit | NEPHROLOGY [address] | M, DO [address] | (end-stage renal | | | | [address] | [place], [place] [address] | disease) ([facility]) | | | | [place] | [place] | (Primary Dx); ESRD | | | | [address] | [address] | (end stage renal | | | | [phone] | | disease) ([facility]) | +--------+ + + + + Social [...] matriculating well through her senior year of [employer] and enjoys her school. Outpatient Prescriptions Marked as Taking for the 10/28/13 encounter (Off-Site Visit) with Camille Camp, DO Medication Sig Dispense Refill cholecalciferol (VITAMIN D-3) 1,000 units tablet Take 1,000 Units by mouth Daily. cinacalcet (SENSIPAR) 30 mg tablet Take 30 mg by mouth Daily. [DISCONTINUED] Doxercalciferol (HECTOROL IV) Inject 1 mcg into the vein Three times a w pilot point. Epoetin Andres (EPOGEN IJ) 4,400 Units by [...] excellent candidate for a renal allograft. CC: [facility], [facility] documented in thi s encounter Plan of Treatment Not on filedocumented as of this encounter Visit Diagnoses + + | Diagnosis | + + | Anemia in ESRD (end-stage renal disease) ([facility]) - Primary Anemia in chronic kidney | | disease | + + | ESRD (end stage renal disease) ([facility]) End stage renal disease | + + documented in this encounter"
--- OUTSIDE RECORDS SUMMARY | ~2019-07-14 | XMS | Encounter Summary ---
Demographics + + + | Address | [address] | | | [place] [address] | + + + | Home Phone [...] | | | | | [place] [address] | | + + + + + | Thania Mallory | ECON | [address] | | | | | [place] [address] | | + + + + + | Deidra Weldon | ECON | [address] | | | | | [place] | | | | | [address] | | + + + + + Care Team Providers + +------+ + | Care Derrick Operator Name | Role | Phone | [...] | 2014 | | Transplant Services | A[place] [address] | | | | | [address] | [facility] | | | | | [address] [place], | [place], [place] | | | | | [place] [address] | [address] | | | | | [phone] | | | +--------+ + + + [...] | | | | | | [place] | | | | | | [address] | | | | | | [phone] | | | | | | | | +--------+ + + + + documented as of this encounter Visit Diagnoses Not on filedocumented in this encounter"
--- OUTSIDE RECORDS SUMMARY | ~2019-07-14 | XMS | Encounter Summary ---
Demographics + + + | Address | [address] | | | [place] [address] | + + + | Home Phone | | + + + | Preferred Language | Unknown | + + + | Marital Status | Single | + + + | Orthodox Affiliation | Unknown | + + + | Race | Unknown | + + + | Ethnic Group | Unknown | + + + Author + + + | Author | [facility] | | | and Josephana | + + + | Organization | [facility] [...] Team Providers + +------+ + | Care Endodontics Dentist Name | Role | Phone | + +------+ + PCP | Unavailable | + +------+ + Encounter Details +--------+ + + + + | Date | Type | Department | Care Team | Description | +--------+ + + + + | 08/31/ | Hospital | [facility] | Conversion | ESRD (end stage | | 2016 | Encounter | CENTER [facility] OP | Transaction, | renal disease) (HCC) | | | | [address] | Provider Unknown | | | | | [place], [place] | | | | | | [address] | (Fax) | | | | | [phone] | Doyle Diaz MD | | +--------+ [...] | 2. IR ANGIOPLASTY AV FISTULA VENOUS FLEXBOARD OPERATOR: Doyle Diaz MD | | | CONSENT: [...] | | Over a guidewire, a 4 Cypriot angled catheter was advanced and | | [...] | ANGIOPLASTY: Over a guidewire, a 6 Cypriot sheath was advanced | | | and [...] IR ANGIOPLASTY AV | | FISTULA VENOUS FLEXBOARD OPERATOR: Doyle Diaz MD CONSENT: The risks, benefits [...] micropuncture needle. Over a guidewire, a 4 Cypriot angled catheter was | | advanced and [...] appears patent. ANGIOPLASTY:Over a guidewire, a 6 Cypriot sheath was | | advanced and positioned [...] AM | |Over a guidewire, a 6 Cypriot sheath was advanced and positioned into the [...] | 2. IR ANGIOPLASTY AV FISTULA VENOUS FLEXBOARD OPERATOR: Doyle Diaz MD | | | CONSENT: [...] | | Over a guidewire, a 4 Cypriot angled catheter was advanced and | | [...] | ANGIOPLASTY: Over a guidewire, a 6 Cypriot sheath was advanced | | | and [...] Sonido Steele - 10/18/2018 9:20 PM PDT CLINICAL DATA: 20-year-old woman with | | left upper extremity AV fistula for hemodialysis. Difficulty with cannulation during | | hemodialysis. PROCEDURES PERFORMED:1. IR DIALYSIS FISTULAGRAM2. IR ANGIOPLASTY AV | | FISTULA VENOUS FLEXBOARD OPERATOR: Doyle Diaz MD CONSENT: The risks, benefits [...] micropuncture needle. Over a guidewire, a 4 Cypriot angled catheter was | | advanced and [...] appears patent. ANGIOPLASTY:Over a guidewire, a 6 Cypriot sheath was | | advanced and positioned [...] AM | |Over a guidewire, a 6 Cypriot sheath was advanced and positioned into the [...] EXTERNAL | | | | performed at [facility];888 | mmol/L | LAB | | | | [address]ica [address]rope[address];[place], [place] | | | | | | [address] | | | | + + + [...]
--- OUTSIDE RECORDS SUMMARY | ~2019-07-14 | XMS | Encounter Summary ---
Demographics + + + | Address | [address] | | | [place] [address] | + + + | Home Phone [...] | Author | [facility] | | | and Josephana | + + + | Organization | [facility] | | | and [...] Team Providers + +------+ + | Care Electro Tech Name | Role | Phone | [...] NEPHROLOGY [address] | M, DO [address] | | | | | [address] | [place], [address] | | | | | [place], [place] | [place], [place] | | | | | [address] | [address] | | | | | [phone] | | | +--------+ + + + [...]
--- OUTSIDE RECORDS SUMMARY | ~2019-07-14 | XMS | Encounter Summary ---
Demographics + + + | Address | [address] | | | [place] [address] | + + + | Home Phone [...] + + + | Author | [facility] | | | and Josephana | + + + | Organization | [facility] | [...] Team Providers + +------+ + | Care Avionics Installer Name | Role | Phone | [...] + + | 12/10/ | Hospital | [facility] | Rayray Powers MD | Sepsis, due to | | 2019 - | Encounter | [facility] | [address] | unspecified | | | | CARE FLOOR [address] | [place], [place] | organism, | | 12/14/ | | [address] | [address] | unspecified whether | | 2019 | | [place], [place] | [phone] | acute organ | | | | [address] | | dysfunction present | | | | [phone] | Lee Harris MD | ([facility]) (Primary Dx); | | | | | [address] | Pneumonia of right | | | | | [place] [address] | lower lobe due to | | | | | [phone] | infectious organism; | | | | | | Hypoxia; | | | | | Jw Neri, DO [address] | Hypervolemia, | | | | | [address] | unspecified | | | | | [place] [address] | hypervolemia type; | | | | | [phone] | ESRD on dialysis | | | | | | ([facility]); Hyperkalemia; | | | | | | Acute on chronic | | | | | | respiratory failure | | | | | | with hypoxia and | | | | | | hypercapnia ([facility]); | | | | | | Acute respiratory | | | | | | failure with hypoxia | | | | | | ([facility]); Anemia in | | | | | | ESRD (end-stage | | | | | | renal disease) | | | | | | ([facility]); At high risk | | | | | | for electrolyte | | | | | | imbalance; Awaiting | | | | | | organ transplant | | | | | | status; 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 | | | | | | failure ([facility]); | | | | | | Chronic right-sided | | | | | | heart failure ([facility]); | | | | | | 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 | | | | | | ([facility]); ESRD on | | | | | | hemodialysis ([facility]); | | | | | | [...] | | | | | function ([facility]); | | | | | | Moderate to severe | | | | | | pulmonary | | | | | | hypertension ([facility]); | | | | | | Low grade fever; | | | | | | Noncompliance of | | | | | | patient with renal | | | | | | dialysis ([facility]); | | | | | | [...] note might be different from pierre coleman. [facility] Service: Hospitalist Physician Discharge Summary [...] Gram-positive bacteria 12/12/2018 Clotted dialysis access ([facility]) 2014 Congestive heart failure ([facility]) ESRD (end stage renal disease) ([facility]) HSP (Henoch-Schonlein purpura) nephritis ([facility]) 1987 Hypertension Pericardial effusion without cardiac tamponade 11/07/2018 Past Surgical History: Procedure Laterality Date ABDOMEN SURGERY AV FISTULA REPAIR 02/24/2014 LEFT Radical Cephalic Fistula Creation; Laterality: Left; Surgeon: Blake Chavarria MD ; Location: [facility] MAIN OR AV FISTULA REPAIR Left 03/07/2014 Procedure: AV FISTULA - GRAFT REPAIR/REVISION; Surgeon: Rik Simon MD; Location: [facility]; Service: Vascular; Laterality: Left; biopsy of kidney age 10 DIALYSIS FISTULA CREATION 04/08/2014 Procedure: DIALYSIS CATHETER - INSERTION; Surgeon: Rik Simon MD; Location: [facility] OR ; Service: Vascular; Laterality: N/A; tunneled catheter.br hemodialysis catheter KIDNEY BIOPSY Left 2003 OTHER SURGICAL HISTORY LAPAROSCOPIC PERITONEAL DIALYSIS CATHETER INSERTION - x2 OTHER SURGICAL HISTORY Right 07/2013 LAPAROSCOPIC PERITONEAL DIALYSIS CATHETER INSERTION - current dialysis access MWF dialysis OTHER SURGICAL HISTORY Left 06/24/2014 SUPERFICIALIZATION OF AV FISTULA - Procedure: AV FISTULA - SUPERFICIALIZATION; Surgeon: Emanuel Simon MD; Location: [facility] MAIN OR; Service: Vascular; Laterality: Left; OTHER SURGICAL HISTORY Left 04/08/2014 AV FISTULA PLACEMENT - Procedure: AV FISTULA; Surgeon: Rik Simon MD; Location: [facility] OR; Service: Vascular; Laterality: Left; cephalic OTHER SURGICAL HISTORY Left 03/07/2014 DECLOT GRAFT - Procedure: GRAFT - DECLOT; Surgeon: Rik Simon MD; Location: [facility] OR ; Service: Vascular; Laterality: Left; [...] hours. No results for input(s): PHART, PO2ART, ZYD0GZF, U5IVLOHZ, BEART in the last 168 hours. No results for input(s): APTT, INR, PTT in the last 168 hours. No results for input(s): TSH in the last 168 hours. Invalid input(s): T3FREE, FREET4 No results for input(s): TROPONINT in the last 168 hours. Invalid input(s): CKTOTAL, TROPONINI, CKMBINDEX Disposition: home No discharge procedures on file. Follow up: Jonathan Alonso MD [address] [facility] [address] Schedule an appointment as soon as possible for a visit hospital follow up Jorje Camp, [address] [facility] [place] [address] [facility] [address] Schedule an appointment as soon as possible [...] be sent through Care Everywhere.Leti Whitt (Adult) (Mauritian)documented in this encounter Medications at Time of [...] | | | | renal disease) ([facility]) | protocol | | | | [...] Yanes MD - 12/14/2018 10:16 AM PDT [facility] Service: Infectious Diseases Progress Note Hospital Day: LOS: 3 days Post-Op Day: * No surgery found * CC: Follow up on bacteremia. SUBJECTIVE/OVERNIGHT EVENTS Denies new concerns and denies side effects. No acute events over the last 24 hours. Awaiti discharge planning. Hemodialysis this morning. After that the patient will be ready for discharge. Hemodynami cortez stable, afebrile. Intake/Output Summary (Last 24 hours) at 12/14/2018 1016 Last data filed at 12/13/2018 1946 Gross per 24 hour Intake Output 1525 [...] Procedure Component Value Units Date/Time Culture, Blood [[id number]] Collected: 12/12/18 1943 Order Status: Canceled Lab Status: No result Specimen: Peripheral Blood Culture, Body Fluid Sterile [[id number]] Order Status: No result Lab Status: No result Specimen: Body Fluid from Pleural Fluid, Right Culture, Blood [[id number]] Collected: 12/12/18 0502 Order Status: Completed Lab Status: Preliminary result Updated: 12/13/18 1324 Specimen: Peripheral Blood Special Requests RWRIST Special Requests Testing performed at [facility];[address] [place] [address] RESULT NO GROWTH AT THIS TIME RESULT Testing performed at [facility], [address] [place] [address] Comment: Testing performed at [facility], [address] [place] [address] Influenza A and B RNA, NAAT [[id number]] Collected: 12/11/18 1556 Order Status: Completed Lab Status: Final result Updated: 12/11/18 1619 Influenza A NEGATIVE Influenza B NEGATIVE Comment: Testing performed by Molecular Methodology Testing performed at [facility];[address] [place] [address] Flu Swab Collection [[id number]] Collected: 12/11/18 1546 Order Status: Completed Lab Status: Final result Updated: 12/11/18 1549 Specimen: Tissue from Nasopharynx Collection SPECIMEN RECEIVED IN LAB Comment: Testing performed at [facility];[address] [place] [address] Culture, Blood [[id number]] Collected: 12/11/18 0615 Order Status: Completed Lab Status: Preliminary result Updated: 12/12/18 1134 Specimen: Peripheral Blood Special Requests RAC Special Requests Testing performed at [facility];[address] [place] [address] RESULT NO GROWTH AT THIS TIME RESULT Testing performed at [facility], [address] [place] [address] Comment: Testing performed at [facility], [address] [place] [address] Culture, Blood [[id number]] (Abnormal) Collected: 12/10/18 2343 Order Status: Completed Lab Status: Final result Updated: 12/13/18 1009 Specimen: Blood from Line Gram Stain Result -- GRAM POSITIVE COCCI IN CLUSTERS SEEN IN AEROBIC BOTTLE SEEN IN ANAEROBIC BOTTLE Gram Stain Result -- SMEAR RESULTS CALLED TO AND READ BACK BY: Brigitte CARTER @ 959 12/11/18 CDS RESULT STAPHYLOCOCCUS SPECIES, COAGULASE NEGATIVE RESULT GROWTH IN TWO OF TWO BOTTLES RESULT -- TIME TO DETECTION: 0.69 DAYS RESULT POSSIBLE CONTAMINANT, CLINICAL CORRELATION REQUIRED. RESULT Testing performed at [address] [address] Comment: Testing performed at [facility], [address] [place] [address] Microbiology Results (72 hrs) Procedure Component Value Units Date/Time Culture, Blood [[id number]] Collected: 12/12/18 0502 Order Status: Completed Lab Status: Preliminary result Updated: 12/13/18 1324 Specimen: Peripheral Blood Special Requests RWRIST Special Requests Testing performed at [facility];[address] [place] [address] RESULT NO GROWTH AT THIS TIME RESULT Testing performed at [facility], [address] [place] [address] Comment: Testing performed at [facility], [address] [place] [address] Influenza A and B RNA, NAAT [[id number]] Collected: 12/11/18 1556 Order Status: Completed Lab Status: Final result Updated: 12/11/18 1619 Influenza A NEGATIVE Influenza B NEGATIVE Comment: Testing performed by Molecular Methodology Testing performed at [facility];[address] [place] [address] Flu Swab Collection [[id number]] Collected: 12/11/18 1546 Order Status: Completed Lab Status: Final result Updated: 12/11/18 1549 Specimen: Tissue from Nasopharynx Collection SPECIMEN RECEIVED IN LAB Comment: Testing performed at [facility];[address] [place] [address] IMAGING: No new images for review today. [...] was completed later after rounds. Dictation software, Memvu, was used which may contain error for [...] Santos, DO - 12/04 2:42 PM PDT [facility] Service: Hospitalist Progress Note Pt: [...] TID WC Continuous Infusions heparin 400 Units/hr (12/12/18826) PRN Medications acetaminophen, albumin, albuterol-ipratropium, nitroglycerin, ondansetron, [...] Signed by: Eliza Glass, Mere Sign Date/Time: 12/11/2018 2:45 AM Xr Chest [...] PASP is 73 mmHg - Baseline weight hx174nee. In acute exacerbation - HD per nephrology [...] this note might be different from the [facility]: Infectious Diseases Progress Note Hospital Day: [...] Consult Continuous Infusions: heparin 400 Units/hr (12/12/18 3638) PRN Meds:.acetaminophen, albumin, albuterol-ipratropium, nitroglycerin, ondansetron, oxyCOD [...] Procedure Component Value Units Date/Time Culture, Blood [[id number]] Collected: 12/12/18 1943 Order Status: Canceled Lab Status: No result Specimen: Peripheral Blood Culture, Body Fluid Sterile [[id number]] Order Status: No result Lab Status: No result Specimen: Body Fluid from Pleural Fluid, Right Culture, Blood [[id number]] Collected: 12/12/18 0502 Order Status: Sent Lab Status: In process Updated: 12/12/18 1005 Specimen: Peripheral Blood Influenza A and B RNA, NAAT [[id number]] Collected: 12/11/18 1556 Order Status: Completed Lab Status: Final result Updated: 12/11/18 1619 Influenza A NEGATIVE Influenza B NEGATIVE Comment: Testing performed by Molecular Methodology Testing performed at [facility];[address] [place] [address] Flu Swab Collection [[id number]] Collected: 12/11/18 1546 Order Status: Completed Lab Status: Final result Updated: 12/11/18 1549 Specimen: Tissue from Nasopharynx Collection SPECIMEN RECEIVED IN LAB Comment: Testing performed at [facility];[address] [place] [address] Culture, Blood [[id number]] Collected: 12/11/18 0615 Order Status: Completed Lab Status: Preliminary result Updated: 12/12/18 1134 Specimen: Peripheral Blood Special Requests RAC Special Requests Testing performed at [facility];[address] [place] [address] RESULT NO GROWTH AT THIS TIME RESULT Testing performed at [facility], [address] [place] [address] Comment: Testing performed at [facility], [address] [place] [address] Culture, Blood [[id number]] (Abnormal) Collected: 12/10/18 2343 Order Status: Completed Lab Status: Final result Updated: 12/13/18 1009 Specimen: Blood from Line Gram Stain Result -- GRAM POSITIVE COCCI IN CLUSTERS SEEN IN AEROBIC BOTTLE SEEN IN ANAEROBIC BOTTLE Gram Stain Result -- SMEAR RESULTS CALLED TO AND READ BACK BY: Brigitte CARTER 6RDerick @ 0802 12/11/18 CDS RESULT STAPHYLOCOCCUS SPECIES, COAGULASE NEGATIVE RESULT GROWTH IN TWO OF TWO BOTTLES RESULT -- TIME TO DETECTION: 0.69 DAYS RESULT POSSIBLE CONTAMINANT, CLINICAL CORRELATION REQUIRED. RESULT Testing performed at [facility], [address] [place] [address] Comment: Testing performed at [address] [address] Microbiology Results (72 hrs) Procedure Component Value Units Date/Time Culture, Blood [[id number]] Collected: 12/12/18 0502 Order Status: Sent Lab Status: In process Updated: 12/12/18 1005 Specimen: Peripheral Blood Influenza A and B RNA, NAAT [[id number]] Collected: 12/11/18 1556 Order Status: Completed Lab Status: Final result Updated: 12/11/18 1619 Influenza A NEGATIVE Influenza B NEGATIVE Comment: Testing performed by Molecular Methodology Testing performed at [facility];[address] [place] [address] Flu Swab Collection [[id number]] Collected: 12/11/18 1546 Order Status: Completed Lab Status: Final result Updated: 12/11/18 1549 Specimen: Tissue from Nasopharynx Collection SPECIMEN RECEIVED IN LAB Comment: Testing performed at [facility];[address] [place] [address] Culture, Blood [[id number]] Collected: 12/11/18 0615 Order Status: Completed Lab Status: Preliminary result Updated: 12/12/18 1134 Specimen: Peripheral Blood Special Requests RAC Special Requests Testing performed at [facility];[address] [place] [address] RESULT NO GROWTH AT THIS TIME RESULT Testing performed at [facility], [address] [place] [address] Comment: Testing performed at [facility], [address] [place] [address] Culture, Blood [[id number]] (Abnormal) Collected: 12/10/18 2343 Order Status: Completed Lab Status: Final result Updated: 12/13/18 1009 Specimen: Blood from Line Gram Stain Result -- GRAM POSITIVE COCCI IN CLUSTERS SEEN IN AEROBIC BOTTLE SEEN IN ANAEROBIC BOTTLE Gram Stain Result -- SMEAR RESULTS CALLED TO AND READ BACK BY: Brigitte CARTER 6RDerick @ 9886 12/11/18 CDS RESULT STAPHYLOCOCCUS SPECIES, COAGULASE NEGATIVE RESULT GROWTH IN TWO OF TWO BOTTLES RESULT -- TIME TO DETECTION: 0.69 DAYS RESULT POSSIBLE CONTAMINANT, CLINICAL CORRELATION REQUIRED. RESULT Testing performed at [facility], [address] [place] [address] Comment: [place] [address] IMAGING: No new images for review today. [...] for gram-positive cocci. Continue vancomycin pending f urther results. To use ESTEFANY/Fe use to keep [...] was completed later after rounds. Dictation software, Memvu, was used which may contain error for [...] Other Pharmacy Consult heparin 400 Units/hr (12/12/18 0849) Vida Whittaker, [facility] - 12/12/2018 1:37 PM PDTClinical Pharmacy Note: Vancomycin Day 1 Referring Provider: Dr. Prado Subjective / Objective Dara Carteron 23 y.o. female Height: 170.2 cm Weight: [...] and will adjust dose accordingly. VIDA ANDERSEN RP, Pharmacist 12/12/2018 13:33 a, Lee Mckeon MD - 12/12/2018 8:29 AM PDTFormatting of this not e might be different from the original. [facility] Adult Hospitalist Progress Note Hospital [...] rec: Family Contact: Something about patient: Lee Jimense Ma, MD 8:29 12/12/2018 rost, Taylor Mckeon, [facility] - 1 7:46 PM PDT Clinical Pharmacy [...] | | n - | | | 12/10/ | | | 2018 | | | [...] | | | 22:01? | | | CARTER | | | ON, | | | DARA | | | | | | R?MRN: | | | | | | [id number] | | | [id number] | | | riteri | | | [...] | | | St. | | | [facility] | | | y | | | [...] | | | St. | | | [facility] | | | y | | | Hospit | | | alDr | | | [facility] | | | ey has | | | not | | | seen | | | Pt | | | since | | | 4/5/20 | | | 19. | | | 5//20 | | | 19 Pt | | [...] | | | ey | | | 05/28/ | | | 9 | | | 12:00 | | | AM | | | [facility] | [facility] | | | [facility] | | | y | | | [...] | | | St | | | [facility] | | | y | | | [...] St | | | | | | [facility] | | | y | | | [...] | | | St. | | | [facility] | | | y | | | [...] | | | St. | | | [facility] | | | y H. | | [...] | | | St. | | | [facility] | | | y H. | | [...] | | | St. | | | [facility] | | | y H. | | [...] | | | St. | | | [facility] | | | y H. | | [...] | | | St. | | | [place] | | | y H. | | [...] | | | St. | | | [facility] | | | y H. | | [...] | | | St. | | | [facility] | | | y H. | | [...] | | | MD | | | Director Pharmacology | | | al | | | [...] | | | [phone] | | | [id number] | | | 2b | | | [...] + | Billie Gupta MD 12/14/2018 9:54 [facility] | | | [facility] Procedure note Pt is seen on [...] QB 450 AP | | | -200 Academic Assistant 170 Constitutional: pt appears without distress. on [...] | | | | | | at [facility], [address] | | | | | | [employer], | | | | | | [place] [address] | | | | | |Testing performed at [facility], [address] [facility] [place] [address] | | | | | | | | | | + + +---- + + + + + | Specimen | + + | Blood | + + + + + + + | Performing | Address | City/State/Zipcode | Phone Number | | Organization | | | | + + + + + | [facility] | [address] | [place] [address] | [phone] | + + + + + Basic [...] 7 (L)Comment: GFR <60: | >60 | [facility] [...] | | | | | performed at [facility], [address] | | | | | | [facility], | | | | | | [place] [address] | | | | + + + + + + + + | Specimen | + + | Blood | + + + + + + + | Performing | Address | City/State/Zipcode | Phone Number | | Organization | | | | + + + + + | [facility] | [address] | [place] [address] | [phone] | + + + + + XR [...] | 9.5 | 8.5 - 10.5 | [facility] | | | | | mg/dL | LABORATORY | | + + + + + + | Estimated | 11 (L)Comment: GFR <60: | >60 | [facility] [...] | | | | | | MDRD [facility] traceable | | | | | | equation.Testing | | | | | | performed at [facility], [address] | | | | | | [facility], | | | | | | [place] [address] | | | | + + + + + + + + | Specimen | + + | Blood | + + + + + + + | Performing | Address | City/State/Zipcode | Phone Number | | Organization | | | | + + + + + | [facility] | [address] | [place] [address] | [phone] | + + + + + [place] [...] 8.6 (H)Comment: Testing | <0.5 mg/dL | [facility] | | | | performed at [facility], [address] | | LABORATORY | | | | [address], | | | | | | [place] [address] | | | | + + + + + + + + | Specimen | + + | Blood | + + + + + + + | Performing | Address | City/State/Zipcode | Phone Number | | Organization | | | | + + + + + | [facility] | [address] | [place] [address] | [phone] | + + + + + Culture, [...] | | LABORATORY | | | | Blvd;[place] [address] | | | | + + + + + + | RESULT | NO GROWTH 6 DAYS | | [facility] | | | | | | LABORATORY | | + + + + + + | RESULT | Testing performed at | | [facility] | | | | [facility], [address] [facility] | | LABORATORY | | | | [place], [place] | | | | | | [id number]: Testing | | | | | | performed at [facility], [address] | | [address], [place], [place] | | | | | | [address] | | | | + + + [...] [facility] | [address] | [place] [address] | [phone] | + + + + + CBC [...] [facility] | | | | performed at [facility], [address] | | LABORATORY | | | | [address], | | | | | | [place] [address] | | | | + + + + + + + + | Specimen | + + | Blood | + + + + + + + | Performing | Address | City/State/Zipcode | Phone Number | | Organization | | | | + + + + + | [facility] | [address] | [place] [address] | [phone] | + + + + + Basic [...] 7 (L)Comment: GFR <60: | >60 | [facility] [...] | | | | | performed at [facility], [address] | | | | | | [facility], | | | | | | [place] [address] | | | | + + + + + + + + | Specimen | + + | Blood | + + + + + + + | Performing | Address | City/State/Zipcode | Phone Number | | Organization | | | | + + + + + | [facility] | [address] | [place] [address] | [phone] | + + + + + Basic [...] | 9.4 | 8.5 - 10.5 | [facility] | | | | | mg/dL | LABORATORY | | + + + + + + | Estimated | 9 (L)Comment: GFR <60: | >60 | [facility] | | | GFR | CHRONIC [...] | | | | | | MDRD IDPA traceable | | | | | | equation.Testing | | | | | | performed at [facility];[address] | | | | | | [facility];[place], [place] | | | | | | [address] | | | | + + + + + + + + | Specimen | + + | Blood | + + + + + + + | Performing | Address | City/State/Zipcode | Phone Number | | Organization | | | | + + + + + | [facility] | [address] | [place] [address] | [phone] | + + + + + Influenza [...] B | NEGATIVEComment: Testing | NEG | [facility] | | | | performed by Molecular | | LABORATORY | | | | MethodologyTesting | | | | | | performed at [facility];[address] | | | | | [address];[place], [place] | | | | | | [address] | | | | + + + + + + + + | Specimen | + + | | + + + + + + + | Performing | Address | City/State/Zipcode | Phone Number | | Organization | | | | + + + + + | [facility] | [address] | [place] [address] | [phone] | + + + + + FLU SWAB COLLECTION (12/11/2018 3:46 PM PDT) + + + + + + | Component | Value | Ref Range | Performed | Pathologist | | | | | At | Signature | + + + + + + | Collection | SPECIMEN RECEIVED IN | | [facility] | | | | LABComment: Testing | | LABORATORY | | | | performed at [facility] | | | | | | [address];[place], [place] | | | | | | [address] | | | | + + + + + + + + | Specimen | + + | Tissue - Entire | | nasopharynx (body | | structure) | + + + + + + + | Performing | Address | City/State/Zipcode | Phone Number | | Organization | | | | + + + + + | [facility] | [address] | [place] [address] | [phone] | + + + + + POC Glucose (12/11/2018 8:31 AM PDT) + + + + + + | Component | Value | Ref Range | Performed | Pathologist | | | | | At | Signature | + + + + + + | Glucose, | 84Comment: Testing | 65 - 99 mg/dL | [facility] | | | POC | performed at [facility];[address] | | LABORATORY | | | | [address];[place], [place] | | | | | | [address] | | | | + + + + + + + + | Specimen | + + | | + + + + + + + | Performing | Address | City/State/Zipcode | Phone Number | | Organization | | | | + + + + + | [facility] | [address] | [place] [address] | [phone] | + + + + + ECG [...] | | | | | ONLY, -COMPUTER (345), | | | | | | movie editor Daniela Luciano | | | | [...] MISHEL | | | | performed at [facility];[address] | | LABORATORY | | | | [address];[place] | | | | | | [address] | | | | + + + + + + + + | Specimen | + + | Blood | + + + + + + + | Performing | Address | City/State/Zipcode | Phone Number | | Organization | | | | + + + + + | [facility] | [address] | [place] [address] | [phone] | + + + + + Basic [...] LABORATORY | | | | [place] [phone] BY | | | | | | [...] | | | | | | MDRD [facility] traceable | | | | | | equation.Testing | | | | | | performed at [facility];[address] | | | | | | [facility];[place], [place] | | | | | | [address] | | | | + + + + + + + + | Specimen | + + | Blood | + + + + + + + | Performing | Address | City/State/Zipcode | Phone Number | | Organization | | | | + + + + + | [facility] | [address] [facility] | [place] [address] | [phone] | + + + + + Culture, [...] | [facility] | | | Requests | [facility];[address] [place] [address] | | LABORATORY | | | | Blvd;[place] [address] | | | | + + + + + + | RESULT | NO GROWTH 6 DAYS | | [facility] | | | | | | LABORATORY | | + + + + + + | RESULT | Testing performed at | | [facility] | | | | TCL, [address] | | LABORATORY | | | | [place] | | | | | | [address]Aloytmr: Testing | | | | | | performed at [facility], [address] | | | | | | [address] [place], [place] | | | | | | [address] | | | | + + + + + + + + | Specimen | + + | Blood - Peripheral | | blood specimen | | (specimen) | + + + + + + + | Performing | Address | City/State/Zipcode | Phone Number | | Organization | | | | + + + + + | [facility] | [address] | [place] [address] | [phone] | + + + + + CT [...] LABORATORY | | | | performed at [facility];[address] | | | | | | [address];[place], [place] | | | | | | [address] | | | | + + + + + + + + | Specimen | + + | | + + + + + + + | Performing | Address | City/State/Zipcode | Phone Number | | Organization | | | | + + + + + | [facility] | [address] | [place] [address] | [phone] | + + + + + Lactic Acid (12/11/2018 1:04 AM PDT) + + + + + + | Component | Value | Ref Range | Performed | Pathologist | | | | | At | Signature | + + + + + + | Lactate, | 1.2Comment: Testing | 0.4 - 2.0 | [facility] | | | Serum | performed at [facility];[address] | mmol/L | LABORATORY | | | | [address];[place], [place] | | | | | | [address] | | | | + + + + + + + + | Specimen | + + | Blood | + + + + + + + | Performing | Address | City/State/Zipcode | Phone Number | | Organization | | | | + + + + + | [facility] | [address] | [place] [address] | [phone] | + + + + + Lactic Acid (12/10/2018 11:44 PM PDT) + + + + + + | Component | Value | Ref Range | Performed | Pathologist | | | | | At | Signature | + + + + + + | Lactate, | 0.8Comment: Testing | 0.4 - 2.0 | [facility] | | | Serum | performed at [facility];[address] | mmol/L | LABORATORY | | | | [address];[place] | | | | | | [address] | | | | + + + + + + + + | Specimen | + + | Blood | + + + + + + + | Performing | Address | City/State/Zipcode | Phone Number | | Organization | | | | + + + + + | [facility] | [address] | [place] [address] | [phone] | + + + + + Culture, [...] | SMEAR RESULTS CALLED TO | | [facility] | | | Result | AND READ BACK | | LABORATORY | | | | BY:Brigitte CARTER @ 9997 | | | | | | 12/11/18 [...] | RESULT | POSSIBLE CONTAMINANT, | | [facility] | | | | CLINICAL CORRELATION | | LABORATORY | | | | REQUIRED. | | | | + + + + + + | RESULT | Testing performed at | | [facility] | | | | [facility], [address] [facility] | | LABORATORY | | | | [place] | | | | | | [id number]: Testing | | | | | | performed at [facility] [address], [address] | | | | | | [address] [place], | | | | | | [place] [address] | | | | + + + + + + + + | Specimen | + + | Blood - Swab of line | | insertion site | | (specimen) | + + + + + + + | Performing | Address | City/State/Zipcode | Phone Number | | Organization | | | | + + + + + | [facility] | [address] | [place] [address] | [phone] | + + + + + XR [...] (H)Comment: 0.04 | 0.00 - 0.04 | [facility] | | | | ng/mL or [...] at | | | | | | [facility];[address];[place] [address] | | | | + + + + + + + + | Specimen | + + | Blood | + + + + + + + | Performing | Address | City/State/Zipcode | Phone Number | | Organization | | | | + + + + + | [facility] | [address] | [place] [address] | [phone] | + + + + + [place] ROJAS (12/10/2018 11:02 PM PDT) + + + + + + | Component | Value | Ref Range | Performed | Pathologist | | | | | At | Signature | + + + + + + | INR | 1.3Comment: REFERENCE | | [facility] | | | [...] | | | | | performed at [facility];[address] | | | | | | [address] [facility];[place], [place] | | | | | | [address] | | | | + + + + + + + + | Specimen | + + | Blood | + + + + + + + | Performing | Address | City/State/Zipcode | Phone Number | | Organization | | | | + + + + + | [facility] | [address] | [place] [address] | [phone] | + + + + + CBC [...] | | | | | | at [facility];[address];[place] [address] | | | | | |NORMAL PLT MORPH | | | | | |Testing performed at [facility];[address] [facility];[place] [address] | | | | | | | | | | + + + + + + + + | Specimen | + + | Blood | + + + + + + + | Performing | Address | City/State/Zipcode | Phone Number | | Organization | | | | + + + + + | [facility] | [address] | [place] [address] | [phone] | + + + + + Phosphorus (12/10/2018 11:02 PM PDT) + + + + + + | Component | Value | Ref Range | Performed | Pathologist | | | | | At | Signature | + + + + + + | Phosphorus | 8.9 (H)Comment: Testing | 2.3 - 4.8 mg/dL | [facility] | | | | performed at [facility];[address] | | LABORATORY | | | | [address];[place], [place] | | | | | | [address] | | | | + + + + + + + + | Specimen | + + | Blood | + + + + + + + | Performing | Address | City/State/Zipcode | Phone Number | | Organization | | | | + + + + + | [facility] | [address] [facility] [facility] | [place] [address] | [phone] | + + + + + Magnesium (12/10/2018 11:02 PM PDT) + + + + + + | Component | Value | Ref Range | Performed | Pathologist | | | | | At | Signature | + + + + + + | Magnesium | 2.2Comment: Testing | 1.7 - 2.4 mg/dL | [facility] | | | | performed at [facility];[address] | | LABORATORY | | | | [address];[place], [place] | | | | | | [address] | | | | + + + + + + + + | Specimen | + + | Blood | + + + + + + + | Performing | Address | City/State/Zipcode | Phone Number | | Organization | | | | + + + + + | [facility] | [address] | [place] [address] | [phone] | + + + + + Comprehensive [...] 3 (L)Comment: GFR <60: | >60 | [facility] | | | GFR | CHRONIC [...] | | | | | | MDRD IDPA traceable | | | | | | equation.Testing | | | | | | performed at [facility] | | | | | | [facility];[place], [place] | | | | | | [address] | | | | + + + + + + + + | Specimen | + + | Blood | + + + + + + + | Performing | Address | City/State/Zipcode | Phone Number | | Organization | | | | + + + + + | [facility] | [address] | [place] [address] | [phone] | + + + + + ECG [...] (500), | | | | | | movie editor Daniela Luciano | | | | [...] right lower lobe due to infectious organism | + + | Hypoxia Hypoxemia | [...] - PRN, | | | Hypotension, Starting Mon12/11/18 | | | at 0937, For BP less than 100 mm | | | Hg. DIALYSIS USE ONLY - | | | DISCONTINUE AFTER DIALYSIS | | | THERAPY IS COMPLETE, Treatment | | | date(s): 12/11/2018, Dialysis | | + +---+ | | [...] | | | | | Minutes, ONCE, Viktoriya 12/11/18 at | | | | | | | 0055, For 1 dose | | | | | | + +---------+ +-----+ +---+ +---+---+ | | | +---+---+ + +---------+ +-----+ +---+ | calcium gluconate in saline 1 | New Bag | 10/08/20 | 1 g | 50 mL/hr | [...] | | | | | CONTINUOUS, Starting Mon12/11/18 | | | | | | | [...] PDT | | | | | ONCE, Mon12/12/18 at 0800, For 1 | | | [...] | | | | | | Starting Mon12/12/18 at 0800, | | | | | [...] | | | | | | | information. Giovannike prior to use., | | | | [...] PDT | | | | | Starting 12/11/18 at 0719 | | | | | [...] | +-------+ + +---+---+ | Given | 10/10/20 | 1,600 mg | | | | [...] - PRN, Hypotension, | | | Starting [facility] 12/11/18 at 0937, | | | Treatment [...] - PRN, Hypotension, | | | Starting [facility] 12/12/18 at 0734, | | | Treatment [...] | | | | | Pain, Starting 12/11/18 at | | AM PDT | | [...]
--- OUTSIDE RECORDS SUMMARY | ~2019-07-14 | XMS | Encounter Summary ---
Demographics + + + | Address | [address] | | | [place] [address] | + + + | Home Phone [...] | | | | | [place] [address] | | + + + + + | Thania Mallory | ECON | [address] | | | | | [place] [address] | | + + + + + | Deidra Weldon | ECON | [address] | | | | | [place] | | | | | [address] | | + + + + + Care Team Providers + +------+ + | Care Rn Iv Therapy Name | Role | Phone | + [...] Query) | | | | Caro [place], | [place], [place] | | | | | [place] [address] | [address] | | | | | [phone] | [phone] | | | | | | | [...] [place] | | | | | | [address] | | | | | | [phone] | | | | | | | | +--------+ + + + + documented as of this encounter Visit Diagnoses Not on filedocumented in this encounter"
--- OUTSIDE RECORDS SUMMARY | ~2019-07-14 | XMS | Encounter Summary ---
Demographics + + + | Address | [address] | | | [place] [address] | + + + | Home Phone [...] | | | | | [place] [address] | | + + + + + | Thania Mallory | ECON | [address] | | | | | [place] [address] | | + + + + + | Deidra Weldon | ECON | [address] | | | | | [place] | | | | | [address] | | + + + + + Care Team Providers + +------+ + | Care Glass Ribbon Machine Operator Name | Role | Phone [...] | Nephrology at | MD Emanuel [address] [facility] | | | | | [place] | [facility] | | | | | [facility] | [place], [place] | | | | | [address] | [address] | | | | | [place] | [phone] | | | | | [facility], | | | | | | [address] [place] [address] | | | | | | [place], [place] | | | | | | [address] | | | | | | [phone] | | | +--------+ + + + [...] Denise | | | | | | [place], [place] | | | | | | [address] | | | | | | [phone] | | | | | | | [...]
--- OUTSIDE RECORDS SUMMARY | ~2019-07-14 | XMS | Encounter Summary ---
Demographics + + + | Address | [address] | | | [place] [address] | + + + | Home Phone [...] + + + | Author | [facility] | | | and [place] | + + + | Organization | [facility] | | | and [...] Team Providers + +------+ + | Care Patient Financial Representative Name | Role | Phone | [...] | | stage renal | [address] | [address] [place] [address] | | | | | disease) | Shun Griffin | Jaciel Gotti | | | | | ([facility]) | [address] | [address] | | | | | Anemia in | [place], [place] | [place] | | | | | ESRD | [address] | [address] Phone: | | | | | (end-stage | Phone: | [phone] | | | | | renal | [phone] | Fax: | | | | | disease) | Fax: | [phone] | | | | | ([facility]) | [phone] | | | | | | Procedures | | | | | | | SC OFFICE | | | | | | [...] | Off-Site | [facility] [place] | Jorej Camp | ESRD (end stage | | 2016 | Visit | NEPHROLOGY [address] | M, DO [address] | renal disease) ([facility]) | | | | [address] | [place], [address] | (Primary Dx); | | | | [place], [place] | [place], [place] | Secondary | | | | [address] | [address] | hyperparathyroidism | | | | [phone] | | ([facility]) | +--------+ + + + + [...] 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 Outpatient Prescriptions Marked as Taking for the [...] treatment will eventually subtract f rom her intermediate survival. I think that basically she needs to diplomatically, hear this message repeatedly , until she obtains some better insight into healthy maintenan ce or her maturity level improves. 2. [...]
--- OUTSIDE RECORDS SUMMARY | ~2019-07-14 | XMS | Encounter Summary ---
Demographics + + + | Address | [address] | | | [place] [address] | + + + | Home Phone [...] | | | | | [place] [address] | | + + + + + | Thania Mallory | ECON | [address] | | | | | [place] [address] | | + + + + + | Deidra Weldon | ECON | [address] | | | | | [place] | | | | | [address] | | + + + + + Care Team Providers + +------+ + | Care Efficiency Engineer Name | Role | Phone | [...] | | [address] | [facility] | | | | | [address] [facility], | [place], [place] | | | | | [place] [address] | [address] | | | | | [phone] | | | +--------+ + + + [...] Denise | | | | | | [place] | | | | | | [address] | | | | | | [phone] | | | | | | | | +--------+ + + + + documented as of this encounter Visit Diagnoses Not on filedocumented in this encounter"
--- OUTSIDE RECORDS SUMMARY | ~2019-07-14 | XMS | Encounter Summary ---
Demographics + + + | Address | [address] | | | [place] [address] | + + + | Home Phone [...] | | | | | [place] [address] | | + + + + + | Thania Mallory | ECON | [address] | | | | | [place] [address] | | + + + + + | Deidra Weldon | ECON | [address] | | | | | [place] | | | | | [address] | | + + + + + Care Team Providers + +------+ + | Care Mixer Helper Name | Role | Phone | [...] Shun | | | | | [address] [facility] | [facility] | | | | | [address] [facility], | [place], [place] | | | | | [place] [address] | [address] | | | | | [phone] | | | +--------+ + + + [...] [place] | | | | | | [address] | | | | | | [phone] | | | | | | | | +--------+ + + + + documented as of this encounter Visit Diagnoses Not on filedocumented in this encounter"
--- OUTSIDE RECORDS SUMMARY | ~2019-07-14 | XMS | Encounter Summary ---
Demographics + + + | Address | [address] | | | [place] [address] | + + + | Home Phone | | + + + | Preferred Language | Unknown | + + + | Marital Status | Single | + + + | Sikh Affiliation | Unknown | + + + | Race | Unknown | + + + | Ethnic Group | Unknown | + + + Author + + + | Author | [facility] | | | and [place] | + + + | Organization | [facility] | | | [...] Team Providers + +------+ + | Care Tight Cooper Name | Role | Phone | + +------+ + PCP | Unavailable | + +------+ + Encounter Details +--------+ + + + + | Date | Type | Department | Care Team | Description | +--------+ + + + + | 05/29/ | Hospital | [facility] | Conversion | End stage renal | | 2014 | Encounter | CENTER IR INTRA OP | Transaction, | disease (HCC) | | | | [address] | Provider Unknown | | | | | [place], [place] | | | | | | [phone] | (Fax) | | | | | [phone] | | | +--------+ + + + [...] documented as of this encounter Progress Notes Anderson Meraz, Provider Unknown - 05/29/2014 4:49 PM PDTFormatting of this note m ight be different from the original. Nurse Progress Note by Mesha Clark RN at 05/29/141648 Author: Mesha Clark RN Service: (none) Author Type: Registered Nurse Filed: 05/29/141653 Date of Service: 05/29/141648 Status: Signed Manual Arts Teacher: Mesha Clark RN (Registered Nurse) Discharge criteria met s/p HD cath exchange. Discharge instructions given to patient and ric preciado, all questions answered and understanding stated. Discharged with family. docume nted in this encounter Plan of Treatment Not on filedocumented as of this encounter Procedures + +--------+ + + + | Procedure Name | Priori | Date/Time | Associated Diagnosis | Comments | | | ty | | | | + +--------+ + + + | IR PLACEMENT | Routin | 05/29/2014 | | Results for this | | TUNNELED CENTRAL | e | 3:42 PM | | procedure are in the | | VENOUS CATHETER > 5 | | PDT | | results section. | | YEARS | | | | | + +--------+ + + + documented in this encounter Results IR Placement Tunneled CV Cath (05/29/2014 3:42 PM PDT) + + | Specimen | + + | | + + + + + | Impressions | Performed At | + + + | 1. Sonography of the lower neck veins. 2. Successful | | | placement of a 14.5-Nicaraguan dual-lumen 19-cm tunneled hemodialysis | | | catheter with its tip in the upper portion of the right atrium without | | | incidence. 40146, 84848, 03352, 19599-66 Electronically | | | signed by Darryn Whaley MD on 05/29/2014 7:17 PM | | + + + + + + | Narrative | Performed At | + + + | [facility] TUNNELED CATHETER INSERTION 05/29/2014 | | | 3:42 PM HISTORY: 19 years. Female. Patient with end-stage renal | | | disease and poorly functioning right upper chest subclavian central | | | venous tunneled catheter. 585.6. PROCEDURE: 1. Sonography | | | of the lower neck veins. 2. Sonographic guidance for access into | | | the right internal jugular vein. 3. Placement of 19 cm, 14.5-Nicaraguan | | | dual-lumen tunneled palindrome hemodialysis catheter in the right | | | upper chest with its tip in the upper right atrium. | | | MEDICATIONS/RADIATION DOSE: Lidocaine 1% for local anesthesia, | | | Versed 5 mg intravenous, Fentanyl 150 mcg intravenous, Ancef 2 g | | | intravenous. Radiation dose 31 mGy. Fluoroscopy time 0.5 minutes. | | | Intra-procedure sedation time 23 minutes. Appropriate physiologic | | | monitoring, maintenance of adequate conscious sedation and | | | independent prison supervision of the conscious sedation was | | | performed throughout the procedure. FINDINGS: 1. Sonography of | | | the lower neck veins revealed widely patent, compressible right | | | internal jugular vein. 2. Real-time visualization of the needle | | | entry into the right internal jugular vein under sonography was noted. | | | Image documenting the same was obtained and placed in patient | | | records. 3. Upper chest radiograph shows dual-lumen, 14.5-Nicaraguan, | | | 19-cm, tunneled dialysis catheter with its tip in the upper portion | | | of the right atrium. 4. Initial radiograph of the upper chest | | | showed right subclavian tunneled venous catheter with its tip in | | | inferior aspect of the right atrium. PROCEDURE: Informed | | | written consent obtained from the patient after explaining the | | | procedure, risks and alternatives. The patient understood the | | | discussion and expressed a wish to proceed. The appropriate side | | | and site was labeled and initialed as an independent process | | | antecedent to the imaging and intervention, as per protocol at this | | | institution. The patient was placed supine on the x-ray table. | | | Sonography of the lower neck veins revealed widely patent and | | | compressible right jugular vein. Supraclavicular and infraclavicular | | | regions are prepped in the usual sterile fashion. Skin and | | | subcutaneous tissues then infiltrated with 1% lidocaine. Injection of | | | contrast revealed tip of the catheter abutting the inferior wall of | | | the right atrium. Then, it was decided to perform new tunneled | | | dialysis catheter insertion and removal of the nonfunctioning | | | catheter. Right internal jugular vein was accessed using a | | | micropuncture needle and exchanged for a 4-Nicaraguan micropuncture sheath | | | over a 0.018 wire. Skin in the infraclavicular region was | | | infiltrated with 1% lidocaine and a 5-mm skin incision was made. A | | | 14.5-Nicaraguan, dual-lumen, 19-cm tunneled hemodialysis catheter was | | | placed a subcutaneous tunnel using a metallic tunneler. The 4-Nicaraguan | | | sheath was exchanged for a 0.035, 3-mm J-wire with its tip in the | | | right atrium under fluoroscopy guidance. The skin and subcutaneous | | | tract was dilated using at 12 and 14-Nicaraguan facial dilators. A | | | 15-Nicaraguan peel-away sheath was placed over the wire with its tip in | | | the upper right atrium. Free end of the dialysis catheter was placed | | | with its tip in the upper right atrium and sheath was removed. | | | Venotomy site and catheter insertion site closure using purse string | | | suture with 3-0 Vicryl. Dermabond was also applied to insertion and | | | venotomy site. The catheter was secured to the skin using 2-0 | | | Prolene. Both ports of the catheter aspirated and flushed freely. | | | The radiograph of the upper chest was obtained. One, right | | | subclavian dialysis catheter was removed using sharp and blunt | | | dissection without incidence. | | + + + + + | Procedure Note | + + | Cedric, Rad Conversion - 10/19/2018 6:38 AM PDT [facility] T[facility]NELED | | CATHETER INSERTION05/29/2014 3:42 PM HISTORY:19 years. Female. Patient with end-stage | | renal disease and poorly functioning right upper chest subclavian central venous | | tunneled catheter. 585.6. PROCEDURE: 1. Sonography of the lower neck veins.2. | | Sonographic guidance for access into the right internal jugular vein.3. Placement of 19 | | cm, 14.5-Nicaraguan dual-lumen tunneled palindrome hemodialysis catheter in the right | | upper chest with its tip in the upper right atrium. MEDICATIONS/RADIATION DOSE: | | Lidocaine 1% for local anesthesia, Versed 5 mg intravenous, Fentanyl 150 mcg | | intravenous, Ancef 2 g intravenous. Radiation dose 31 mGy. Fluoroscopy time 0.5 | | minutes. Intra-procedure sedation time 23 minutes. Appropriate physiologic | | monitoring, maintenance of adequate conscious sedation and independent prison | | supervision of the conscious sedation was performed throughout the procedure. | | FINDINGS:1. Sonography of the lower neck veins revealed widely patent, compressible | | right internal jugular vein.2. Real-time visualization of the needle entry into the | | right internal jugular vein under sonography was noted. Image documenting the same was | | obtained and placed in patient records.3. Upper chest radiograph shows dual-lumen, | | 14.5-Nicaraguan, 19-cm, tunneled dialysis catheter with its tip in the upper portion of the | | right atrium.4. Initial radiograph of the upper chest showed right subclavian tunneled | | venous catheter with its tip in inferior aspect of the right atrium. PROCEDURE: | | Informed written consent obtained from the patient after explaining the procedure, risks | | and alternatives. The patient understood the discussion and expressed a wish to | | proceed. The appropriate side and site was labeled and initialed as an independent | | process antecedent to the imaging and intervention, as per protocol at this institution. | | The patient was placed supine on the x-ray table. Sonography of the lower neck veins | | revealed widely patent and compressible right jugular vein. Supraclavicular and | | infraclavicular regions are prepped in the usual sterile fashion. Skin and subcutaneous | | tissues then infiltrated with 1% lidocaine. Injection of contrast revealed tip of the | | catheter abutting the inferior wall of the right atrium. Then, it was decided to perform | | new tunneled dialysis catheter insertion and removal of the nonfunctioning catheter. | | Right internal jugular vein was accessed using a micropuncture needle and exchanged for | | a 4-Nicaraguan micropuncture sheath over a 0.018 wire. Skin in the infraclavicular region | | was infiltrated with 1% lidocaine and a 5-mm skin incision was made. A 14.5-Nicaraguan, | | dual-lumen, 19-cm tunneled hemodialysis catheter was placed a subcutaneous tunnel using | | a metallic tunneler. The 4-Nicaraguan sheath was exchanged for a 0.035, 3-mm J-wire with | | its tip in the right atrium under fluoroscopy guidance. The skin and subcutaneous tract | | was dilated using at 12 and 14-Nicaraguan facial dilators. A 15-Nicaraguan peel-away sheath | | was placed over the wire with its tip in the upper right atrium. Free end of the | | dialysis catheter was placed with its tip in the upper right atrium and sheath was | | removed. Venotomy site and catheter insertion site closure using purse string suture | | with 3-0 Vicryl. Dermabond was also applied to insertion and venotomy site. The | | catheter was secured to the skin using 2-0 Prolene. Both ports of the catheter | | aspirated and flushed freely. The radiograph of the upper chest was obtained. One, | | right subclavian dialysis catheter was removed using sharp and blunt dissection without | | incidence. IMPRESSION: 1. Sonography of the lower neck veins.2. Successful placement | | of a 14.5-Nicaraguan dual-lumen 19-cm tunneled hemodialysis catheter with its tip in the | | upper portion of the right atrium without incidence. 11754, 93429, 53756, 03891-25 | | | |2. Successful placement of a 14.5-Nicaraguan dual-lumen 19-cm tunneled hemodialysis catheter w ith its tip in the upper portion of the right atrium without incidence. | | | |10658, 73332, 67136, 38183-69 | | | | | + + documented in this encounter Visit Diagnoses + + | Diagnosis | + + | End stage renal disease (HCC) End stage renal disease | + + documented in this encounter"
--- OUTSIDE RECORDS SUMMARY | ~2019-07-14 | XMS | Encounter Summary ---
Demographics + + + | Address | [address] | | | [place] [address] | + + + | Home Phone [...] Team Providers + +------+ + | Care Vegetable Buncher Name | Role | Phone | + +------+ + | Jonathan Alonso MD | PCP | | + +------+ + Encounter Details +--------+ + + + + | Date | Type | Department | Care Team | Description | +--------+ + + + + | 08/13/ | Emergency | [facility] | | | | 2019 | | [facility] | | | | | | EMERGENCY CENTER | | | | | | [address] | | | | | | [place], [place] | | | | | | [address] | | | | | | [phone] | | | +--------+ + + + [...]
--- OUTSIDE RECORDS SUMMARY | ~2019-07-14 | XMS | Encounter Summary ---
Demographics + + + | Address | [address] | | | [place] [address] | + + + | Home Phone [...] | | | | | [place] [address] | | + + + + + | Thania Mallory | ECON | [address] | | | | | [place] [address] | | + + + + + | Deidra Weldon | ECON | [address] | | | | | [place] | | | | | [address] | | + + + + + Care Team Providers + +------+ + | Care Ski Tow Operator Name | Role | Phone | + +------+ + | Shahid Camargo MD | PCP | | + +------+ + Encounter Details +--------+ + + + + | Date | Type | Department | Care Team | Description | +--------+ + + + + | 12/19/ | Document-Sc | UNKNOWN DEPARTMENT | Unknown . | | | 2012 | anned | [address] | | | | | | [facility] | | | | | | [place], [place] | | | | | | [address] | | | +--------+ + + + [...] Denise | | | | | | [place], [place] | | | | | | [address] | | | | | | [phone] | | | | | | | | +--------+ + + + + documented as of this encounter Visit Diagnoses Not on filedocumented in this encounter"
--- OUTSIDE RECORDS SUMMARY | ~2019-07-14 | XMS | Encounter Summary ---
Demographics + + + | Address | [address] | | | [place] [address] | + + + | Home Phone [...] | | | | | [place] [address] | | + + + + + | Thania Mallory | ECON | [address] | | | | | [place] [address] | | + + + + + | Deidra Weldon | ECON | [address] | | | | | [place] | | | | | [address] | | + + + + + Care Team Providers + +------+ + | Care Senior Electronics Engineer Name | Role | Phone | [...] | | | | [address] | [facility] | | | | | [address] [place], | [place], [place] | | | | | [place] [address] | [address] | | | | | [phone] | | | +--------+ + + + [...] Denise | | | | | | [place] | | | | | | [address] | | | | | | [phone] | | | | | | | | +--------+ + + + + documented as of this encounter Visit Diagnoses Not on filedocumented in this encounter"
--- OUTSIDE RECORDS SUMMARY | ~2019-07-14 | XMS | Encounter Summary ---
Demographics + + + | Address | [address] | | | [place] [address] | + + + | Home Phone [...] | | | | | [place] [address] | | + + + + + | Thania Mallory | ECON | [address] | | | | | [place] [address] | | + + + + + | Deidra Weldon | ECON | [address] | | | | | [place] | | | | | [address] | | + + + + + Care Team Providers + +------+ + | Care Head Still Operator Name | Role | Phone | [...] SSA) | | | | [address] [place], | [place], [place] | | | | | [place] [address] | [address] | | | | | [phone] | | | +--------+ + + + [...] Denise | | | | | | [place] | | | | | | [address] | | | | | | [phone] | | | | | | | | +--------+ + + + + documented as of this encounter Visit Diagnoses Not on filedocumented in this encounter"
--- OUTSIDE RECORDS SUMMARY | ~2019-07-14 | XMS | Encounter Summary ---
Demographics + + + | Address | [address] | | | [place] [address] | + + + | Home Phone [...] | | | | | [place] [address] | | + + + + + | Thania Mallory | ECON | [address] | | | | | [place] [address] | | + + + + + | Deidra Weldon | ECON | [address] | | | | | [place] | | | | | [address] | | + + + + + Care Team Providers + +------+ + | Care Gyroscopic Instrument Mechanic Name | Role | Phone | [...] | | | | | Caro [place], | | | | | | [place] [address] | | | +--------+ + + + [...] Denise | | | | | | [place], [place] | | | | | | [address] | | | | | | [phone] | | | | | | | [...] DANILO - | [address], | [place] [address] | | | IMMUNOGENETICS/TRANS | [address] | | | | [facility] | | | | + + + + + documented in this encounter Visit Diagnoses + + | Diagnosis | + + | End stage renal disease (HCC) End stage renal disease | + + documented in this encounter"
--- OUTSIDE RECORDS SUMMARY | ~2019-07-14 | XMS | Encounter Summary ---
Demographics + + + | Address | [address] | | | [place] [address] | + + + | Home Phone [...] Team Providers + +------+ + | Care Filler Spreader Name | Role | Phone | + [...] NEPHROLOGY [address] | MD [address] | (Asymptomatic) | | | | [address] | [address] [place] | | | | | [place], [place] | [place] [address] | | | | | [address] | [phone] | | | | | [phone] | | | +--------+ + + + [...] note e-faxed to Jamil Levi in Dialysis [facility], Lianna Joy [facility] pediatric nephrology at [facility] on 02/07/14. Daniela Ibarra MD - 01/24/2014 2:48 PM PSTFormatting of this note might be different fr om the original. Comprehensive Dialysis Monthly Note Date of visit: 01/24/2014 Dialysis Clinic: [facility] Mode of dialysis: Hemodialysis Dialysis prescription: MWF, [...] 2012. Access: R chest catheter. Re-referred to [facility] transplant in Oct 2013 by pipe organ mechanic apprentice. Peritonitis, dialysis-associated (HCC) 07/29/2013 Note Last Updated: 07/29/2013 Due to MSSA. Had tunneled infection as well. PD catheter removed in July 2013. On Keflex till 08/01/13. History of Henoch-Schonlein purpura Note Last Updated: 07/29/2013 Diagnosed at age 10[address] Joy, pipe organ mechanic apprentice. Anemia in ESRD (end-stage renal disease) (HCC) [...] ed for acceptable candidacy. Will f/u with [facility] Transplant Team. cc: Lucille Griffin [facility] Dr. Lianna Joy, [facility] Pediatric Nephrology [facility] Renal transplant documented in this encounter Plan [...]
--- OUTSIDE RECORDS SUMMARY | ~2019-07-14 | XMS | Encounter Summary ---
Demographics + + + | Address | [address] | | | [place] [address] | + + + | Home Phone [...] | [facility] | | | and [place] | + + + | Organization | [facility] | [...] Team Providers + +------+ + | Care Welder Manufacture Name | Role | Phone | + [...] | | KIDNEY TRANSPLANT | [address], | | | | | [address] [place] | [place] [address] | | | | | [address] [place] | [phone] | | | | | [address] | | | | | | [phone] | | | +--------+ + + + [...] this encounter Progress Elodia Velasquez - 06/13/2018 12:54 PM PDTerrorElectronically signed by Elodia Hutchins at 2018 12:54 PM PDTdocumented in this encounter Plan of Treatment Not on filedocumented as of this encounter Visit Diagnoses Not on filedocumented in this encounter"
--- OUTSIDE RECORDS SUMMARY | ~2019-07-14 | XMS | Clinical Summary ---
Demographics + + + | Address | [address] | | | [place] [address] | + + + | Home Phone [...] | Author | [facility] | | | and [place] | + + + | Organization | [facility] | | | and [...] Providers + +------+ + | Care Medical Clerk Name | Role | Phone | [...] + | | Additional | | | InformationPatient | | | taking differently: | | | 1.5 mcg Intravenous | | | THREE TIMES WEEKLY, | | | Per dialysis clinic | | | protocol, Reason: | | | Not Effective, | | | Reported on | | | 12/11/2018 5:59 AM | +---+ + + + +--------+---+------+---+-------+ | etelcalcetide | Inject 2.5 mg into | | 0 | | | Activ | | (PARSABIV) 2.5 | the vein Three times | | | | | e | | mg/0.5 mL injection | a week. | | | | | | + + +--------+---+------+---+-------+ | ondansetron | Take 4 mg by mouth 3 | | 0 | | | Activ | | (ZOFRAN) 4 mg tablet | (three) times daily | | | | | e | | | as needed for | | | | | | | | Nausea. | | | | | | + + +--------+---+------+---+-------+ | pantoprazole | Take 40 mg by mouth | | 0 | | | Activ | | (PROTONIX) 40 mg | every morning before | | | | | e | | tablet | breakfast. | | | | | | + + +--------+---+------+---+-------+ | epoetin jenna | Inject 0.4 mLs | | 0 | 04/3 | | Activ | | (EPOGEN) 20,000 | (8,000 Units total) | | | 0/20 | | e | | units/mL injection | into the skin every | | | 14 | | | | | 7 days. | | | | | | + + +--------+---+------+---+-------+ | clopidogrel | Take 1 tablet by | 30 | 4 | 08/2 | | Activ | | (PLAVIX) 75 mg | mouth Daily. | tablet | | 0/20 | | e | | tablet | | | | 19 | | | + + +--------+---+------+---+-------+ | citalopram | Take 1 tablet by | 30 | 5 | 11/0 | | Activ | | (CELEXA) 20 mg | mouth Daily. | tablet | | 8/20 | | e | | tablet | | | | 19 | | | + + +--------+---+------+---+-------+ | valsartan (DIOVAN) | Take 1 tablet by | 90 | 3 | 11/1 | | Activ | | 40 mg tablet | mouth Daily. | tablet | | 9/20 | | e | | | | | | 19 | | | + + +--------+---+------+---+-------+ | albuterol 90 | Inhale 2 puffs into | | 0 | | | Activ | | mcg/puff inhaler | the lungs every 6 | | | | | e | | | hours as needed for | | | | | | | | Wheezing. | | | | | | + + +--------+---+------+---+-------+ | fluticasone | Inhale 1 puff into | | 0 | | | Activ | | (FLOVENT HFA) 110 | the lungs 2 times | | | | | e | | mcg/puff inhaler | daily. | | | | | | + + +--------+---+------+---+-------+ | carvedilol (COREG) | Take 1 tablet by | 60 | 0 | 02/1 | | Activ | | 12.5 mg tablet | mouth 2 times daily. | tablet | | 8/20 | | e | | | | | | 20 | | | + + +--------+---+------+---+-------+ | clonazePAM | Take 0.5 tablets by | 3 | 0 | 02/1 | | Activ | | (KLONOPIN) 0.5 mg | mouth Daily as | tablet | | 8/20 | | e | | tablet | needed for Anxiety | | | 20 | | | | | (on hemodialysis | | | | | | | | days). | | | | | | + + +--------+---+------+---+-------+ | | Take 1 tablet by | 20 | 0 | 02/1 | | Activ | | HYDROcodone-acetamin | mouth every 6 hours | tablet | | 8/20 | | e | | ophen (NORCO) 5-325 | as needed. | | | 20 | | | | mg per tablet | | | | | | | + + +--------+---+------+---+-------+ | promethazine | Take 1 tablet by | 30 | 0 | 02/1 | | Activ | | (PHENERGAN) 25 mg | mouth every 8 hours | tablet | | 8/20 | | e | | tablet | as needed. | | | 20 | | | + + +--------+---+------+---+-------+ Active Problems + + + | Problem [...] 9. | | Treated by Dr. Joy, doll wigs hackler. | + + + +---+ | ESRD [...] + + + + | 07/12/ | Refill | Cardiology | Carolina Mahmood DO | Medication Refill | | 2020 | | | | | +--------+ + + + + | 04/18/ | Hospital | Internal Medicine | French Alexandre DO | ESRD needing | | 2019 - | Encounter | | Daniela Lara MD | dialysis ([facility]) | | | | | Arash Bonilla, | (Primary Dx); | | 04/23/ | | | | Hypervolemia, | | 2019 | | | | unspecified | | | | | | hypervolemia type; | | | | | | Noncompliance with | | | | | | renal dialysis | | | | | | ([facility]); | | | | | | Costochondritis; | | | | | | Recurrent right | | | | | | pleural effusion; | | | | | | Acute on chronic | | | | | | 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 | | | | | | (congestive heart | | | | | | failure) ([facility]); At | | | | | | high risk for | | | | | | electrolyte | | | | | | imbalance; 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 | | | | | | failure ([facility]); ESRD | | | | | | on hemodialysis | | | | | | ([facility]); Hyperkalemia; | | | | | | Anemia in ESRD | | | | | | (end-stage renal | | | | | | disease) ([facility]); | | | | | | Hyperphosphatemia; | | | | | | Uncontrolled | | | | | | hypertension; | | | | | | Hypertension, | | | | | | unspecified type | +--------+ + + + + from Last 3 Months Immunizations + + + + | Name | Administration Dates | Next Due | + + + + | DTAP, 5 DOSE (PED) | 10/08/2001, 07/22/1997, 1996, | | | | 1996 | | + + + + | DTP (PED) | 1996 | | + + + + | HEP A, 2 DOSE | 11/12/2013, 12/17/2012 | | | (PED/ADOL) | | | + + + + | HIB (PRP-T), 4 DOSE | 07/22/1997, 1996, 1996, | | | (PED) | 1996 | | + + + + | HIB HBOC CONJUGATE, | 07/22/1997, 1996, 1996, | | | 4 DOSE (PED) | 1996 | | + + + + | HPV 9-VALENT RECOMB | 03/02/2015 | | | VACCINE IM | | | + + + + | HPV, QUADRIVALENT, 3 | 05/27/2014, 11/12/2013 | | | DOSE (ADOL/ADULT) | | | + + + + [...] | | + + + + | POLIOVIRUS,OPV | 1996, 1996 | | | (LIVE) | | | + + + + | TDAP, (ADOL/ADULT) | 10/28/2008 | | + + + + | VARICELLA, 2 DOSE | 11/12/2013 | | | (VARIVAX) | | | + + + + [...] | | 06/21/2012 | | | Pneumococcal -64 | 3 | | | | (2 [...] | Vaccine: Influenza | Completed | 12/11/2018, 12/13/2012 | | + + + + [...] Left: | SYNOVIS - | | | [id number] | | 0.8x8cm - [id number]: | | Arm | SYNO | | [...] | | | COVIDIEN | | | [id number] | | | | | -MATT 867 - | | | [id number] / | | | | | COVI | | | | | | | | | | | /[id number] | | | | | | | [...] R?MRN: | | | | | | [id number] | | | [id number] | | | riteri | | | [...] | | | St. | | | [place] | | | y | | | [...] | | | St. | | | [place] | | | y | | | [...] | | | St. | | | [place] | | | y | | | [...] 2020 | | | | | | [place] | | | ED | | | Dispar | | | ity | | | Measur | | | e - | | | [place] | | | has | | | [...] | | | s. | | | [place] | | | | | | Health [...] | | | By: | | | [place] | | | | | | Health [...] | | | St. | | | [place] | | | y | | | [...] | | | St. | | | [place] | | | y H. | | [...] | | | St. | | | [place] | | | y H. | | [...] | | | St. | | | [place] | | | y H. | | [...] | | | St. | | | [place] | | | y H. | | [...] | | | St. | | | [place] | | | y H. | | [...] | | | St. | | | [place] | | | y H. | | [...] | | | [place] | | | [place] | | | al | | | [...] | | | [place] | | | [place] | | | al | | | [...] | | | MD | | | Guide Escort | | | al | | | [...] | +---+--------+ from Last 3 Months Results US Guided Thoracentesis wo Chest Tube (04/23/2019 11:31 AM [facility])Only the most recent of 2 re sults within the time period is included. + [...] | | space is punctured with an 5-Malay thoracentesis catheter. Fluid is | | | [...] + | Matt, Rad Results In - 04/23/2019 5:11 PM PST | | ULTRASOUND [...] the pleural space is punctured with an 5-Malay | | thoracentesis catheter. Fluid is aspirated [...] Chest Inspiration and Expiration (04/23/2019 10:27 AM PST)Only the most recent of 2 resu lts within the time period is included. + + | Specimen | + + | | + + + + + | Impressions | Performed At | + + + | No pneumothorax. Signed by: Eliza Echols, Fely Sign | [facility] | | Date/Time: 04/23/2019 [...] Procedure Note | + + | Matt, Sonido Results In 04/23/2019 11:15 AM PST | | XR [...] + Comprehensive Metabolic Panel (04/22/2019 9:14 AM PST)Only the most recent of 2 results wi thin the time period is [...] 17 | 10 - 65 U/L | [facility] | | | | | | LABORATORY | | + + + + + + | Estimated | 8 (L)Comment: GFR <60: | >60 | [facility] | | | GFR | [...] | | | | | | MDRD [facility] traceable | | | | | | equation.Testing | | | | | | performed at [facility];[address] | | | | | | [facility];[place], [place] | | | | | | [address] | | | | + + + + + + + + | Specimen | + + | Blood | + + + + + + + | Performing | Address | City/State/Zipcode | Phone Number | | Organization | | | | + + + + + | [facility] | [address] | [place] [address] | [phone] | + + + + + ECG 12 lead (04/22/2019 8:19 AM PST)Only the most recent of 2 [...] | | | | | Maurice ALMEIDA ([id number]) on | | | | | | [...] | Procedure Note | + + | Mtat, Rad Results In - 04/22/2019 8:24 AM [...] | + +---------+ + + Troponin I (04/22/2019 7:55 AM PST) + + + + + + | Component | Value | Ref Range | Performed | Pathologist | | | | | At | Signature | + + + + + + | Troponin I | 0.073 (H)Comment: 0.04 | 0.00 - 0.04 | [facility] | | | | ng/mL [...] at | | | | | | [facility];[address] [place] [address] | | | | | | [facility];[place] [address] | | | | + + + + + + + + | Specimen | + + | Blood | + + + + + + + | Performing | Address | City/State/Zipcode | Phone Number | | Organization | | | | + + + + + | [facility] | [address] | [place] [address] | [phone] | + + + + + CK-MB (04/22/2019 7:55 AM PST) [...] at | | | | | | [facility];[address] | | | | | | [address];[place] [address] | | | | + + + + + + + + | Specimen | + + | Blood | + + + + + + + | Performing | Address | City/State/Zipcode | Phone Number | | Organization | | | | + + + + + | [facility] | [address] | [place] [address] | [phone] | + + + + + Basic Metabolic Panel (04/20/2019 3:14 PM PST)Only the most recent of 3 results within [...] 19 (L)Comment: GFR <60: | >60 | [facility] | | | GFR | [...] | | | | | performed at [facility] | | | | | | [facility];[place], [place] | | | | | | [address] | | | | + + + + + + + + | Specimen | + + | | + + + + + + + | Performing | Address | City/State/Zipcode | Phone Number | | Organization | | | | + + + + + | [facility] | [address] | [place] [address] | [phone] | + + + + + Cell [...] + + + + | APPEARANCE | HAZY | | [facility] | | | | | | LABORATORY | | + + + + + + | BF | 113 | /mm3 | [facility] | | | Nucleated | | | LABORATORY | | | Cells | | | | | + + + + + + | BF RBC | <2000 | /mm3 | [facility] | | | | | | LABORATORY | | + + + + + + | Neutrophils | 3 | % | [facility] | | | , Fluid | | | LABORATORY | | + + + + + + | BF % | 3 | % | [facility] | | | Lymphocytes | | | LABORATORY | | + + + + + + | BF | 88 | % | [facility] | | | Mononuclear | | | LABORATORY | | | Phagocytes | | | | | | % | | | | | + + + + + + | MESOTHELIAL | 6 | % | [facility] | | | CELLS | | | LABORATORY | | + + + + + + | Cells | 100Comment: Testing | | [facility] | | | Counted | performed at [facility];[address] | | LABORATORY | | | | [address];[place], [place] | | | | | | [address] | | | | + + + + + + + + | Specimen | + + | Body Fluid | + + + + + + + | Performing | Address | City/State/Zipcode | Phone Number | | Organization | | | | + + + + + | [facility] | [address] | [place] [address] | [phone] | + + + + + Protein, Body Fluid (04/19/2019 10:26 AM PST) + + + + + + | Component | Value | Ref Range | Performed | Pathologist | | | | | At | Signature | + + + + + + | Protein, | 2.6Comment: This is not | g/dL | [facility] | | | Body Fluid | a biological science aide validated | | LABORATORY | | | | sample type for this | | | | | | method. No | | | | | | referenceranges have | | | | | | been established.Testing | | | | | | performed at [facility], [address] | | | | | | [address] [facility], | | | | | | [place] [address] | | | | + + + + + + | SOURCE | THORACENTESIS | | [facility] | | | | FLUIDComment: Testing | | LABORATORY | | | | performed at [facility];[address] | | | | | | [address] [facility];[place], [place] | | | | | | [address] | | | | + + + + + + + + | Specimen | + + | Body Fluid | + + + + + + + | Performing | Address | City/State/Zipcode | Phone Number | | Organization | | | | + + + + + | [facility] | [address] | [place] [address] | [phone] | + + + + + Lactate dehydrogenase, body fluid (04/19/2019 10:26 AM PST) + + + + + + | Component | Value | Ref Range | Performed | Pathologist | | | | | At | Signature | + + + + + + | Lactate | 98Comment: This is not a | U/L | [facility] | | | Dehydrogena | biological science aide validated | | LABORATORY | | | se, Body | sample type for this | | | | | Fluid | method. No | | | | | | referenceranges have | | | | | | been established.Testing | | | | | | performed at [facility], [address] | | | | | | [address] [facility], | | | | | | [place] [address] | | | | + + + + + + + + | Specimen | + + | Body Fluid | + + + + + + + | Performing | Address | City/State/Zipcode | Phone Number | | Organization | | | | + + + + + | [facility] | [address] | [place] [address] | [phone] | + + + + + CBC with Differential (04/19/2019 4:49 AM PST)Only the most recent of 2 [...] + + + + | RBC | 3.02 (L) | 3.70 - 5.10 [...] | | | Absolute | performed at [facility], [address] | [address] | LABORATORY | | | | [facility], | | | | | | [place] [address] | | | | + + + + + + + + | Specimen | + + | Blood | + + + + + + + | Performing | Address | City/State/Zipcode | Phone Number | | Organization | | | | + + + + + | [facility] | [address] | [place] [address] | [phone] | + + + + + Protein, Total (04/19/2019 4:49 AM PST) + + + + + + | Component | Value | Ref Range | Performed | Pathologist | | | | | At | Signature | + + + + + + | Protein, | 6.4Comment: Testing | 6.3 - 8.2 g/dL | [facility] | | | Total | performed at [facility];[address] | | LABORATORY | | | | [address];[place], [place] | | | | | | [address] | | | | + + + + + + + + | Specimen | + + | Blood | + + + + + + + | Performing | Address | City/State/Zipcode | Phone Number | | Organization | | | | + + + + + | [facility] | [address] | [place] [address] | [phone] | + + + + + Lactate Dehydrogenase (04/19/2019 4:49 AM PST) + + + + + + | Component | Value | Ref Range | Performed | Pathologist | | | | | At | Signature | + + + + + + | LDH TOTAL | 254 (H)Comment: Testing | 120 - 246 U/L | [facility] | | | | performed at [facility];[address] | | LABORATORY | | | | [address];[place], [place] | | | | | | [address] | | | | + + + + + + + + | Specimen | + + | Blood | + + + + + + + | Performing | Address | City/State/Zipcode | Phone Number | | Organization | | | | + + + + + | [facility] | [address] | [place] [address] | [phone] | + + + + + XR [...] + | Matt, Rad Results In - 04/18/2019 3:33 PM [...] + +---------+ + + Hepatitis B Surface Ab, Quant [...] performed at [facility], [address] | | | | | | [facility], | | | | | | [place] [address] | | | | + + + + + + + + | Specimen | + + | Blood | + + + + + + + | Performing | Address | City/State/Zipcode | Phone Number | | Organization | | | | + + + + + | [facility] | [address] | [place] [address] | [phone] | + + + + + Hepatitis B Core Ab, Total (04/18/2019 1:32 PM PST) + + + + + + | Component | Value | Ref Range | Performed | Pathologist | | | | | At | Signature | + + + + + + | Hepatitis B | NON REACTIVEComment: | NR | [facility] | | | Core Ab | Testing performed at | | LABORATORY | | | Total | [facility], [address] | | | | | | [place] | | | | | | [address] | | | | + + + + + + + + | Specimen | + + | Blood | + + + + + + + | Performing | Address | City/State/Zipcode | Phone Number | | Organization | | | | + + + + + | [facility] | [address] | [place] [address] | [phone] | + + + + + Hepatitis B Surface Ag (04/18/2019 [...] | | | | [facility], [address] [facility] | | | | | | [place], [place] | | | | | | [address] | | | | + + + + + + + + | Specimen | + + | Blood | + + + + + + + | Performing | Address | City/State/Zipcode | Phone Number | | Organization | | | | + + + + + | [facility] | [address] | [place] [address] | [phone] | + + + + + Protime INR (04/18/2019 1:32 PM PST) + + + + + + | Component | Value | Ref Range | Performed | Pathologist | | | | | At | Signature | + + + + + + | INR | 1.2Comment: REFERENCE | | [facility] | | | | RANGE:0.9 [...] | | | | | performed at [facility];[address] | | | | | | [facility];[place] | | | | | | [address] | | | | + + + + + + + + | Specimen | + + | Blood | + + + + + + + | Performing | Address | City/State/Zipcode | Phone Number | | Organization | | | | + + + + + | [facility] | [address] | [place] [address] | [phone] | + + + + + D-Dimer (04/18/2019 1:32 PM PST) + + + + + + | Component | Value | Ref Range | Performed | Pathologist | | | | | At | Signature | + + + + + + | D-DIMER | 1.37 (H)Comment: D Dimer | 0.19 - 0.50 | [facility] | | | | results less than [...] | | | | | performed at [facility] | | | | | | [address];[place], [place] | | | | | | [address] | | | | + + + + + + + + | Specimen | + + | Blood | + + + + + + + | Performing | Address | City/State/Zipcode | Phone Number | | Organization | | | | + + + + + | [facility] | [address] | [place] [address] | [phone] | + + + + + Phosphorus (04/18/2019 1:32 PM PST) + + + + + + | Component | Value | Ref Range | Performed | Pathologist | | | | | At | Signature | + + + + + + | Phosphorus | 8.4 (H)Comment: Testing | 2.3 - 4.8 mg/dL | [facility] | | | | performed at [facility];[address] | | LABORATORY | | | | [address];[place], [place] | | | | | | [address] | | | | + + + + + + + + | Specimen | + + | Blood | + + + + + + + | Performing | Address | City/State/Zipcode | Phone Number | | Organization | | | | + + + + + | [facility] | [address] | [place] [address] | [phone] | + + + + + from [...] +--------+ +---------+--------+ | MEDICARE | MEDICA | [id number] | 05/05/19 | [phone] | | Medica | | | RE | | 13-Pre | 5 | | re | | | PART A | | sent | | | | | | AND B | | | | | | + +--------+ +--------+ +---------+--------+ | MEDICARE | MEDICA | [id number] | 05/05/19 | [phone] | | Medica | | | RE | | 13-Pre | 5 | | re | | | PART A | | sent | | | | | | AND B | | | | | | + +--------+ +--------+ +---------+--------+ | [employer]AN | MODA | [id number] | | [phone] | | Medica | | MEDICAID HMO | HEALTH | | 019-Pr | 1 | | id | | | MDCD | | esent | | | | | | [place] | | | | | | + +--------+ +--------+ +---------+--------+ | [employer] | MODA | [id number] | 03/06/19 | [phone] | | Medica | | MEDICAID HMO | HEALTH | | 19-Pre | 1 | | id | | | MDCD | | sent | | | | | | HMO [...] Self | [birth year] | | [address] | | | al/Fam | | 1994 | [phone] | [address] [place], [place] | | | [place] | | | 2 (Home) | [address] | + +--------+ +--------+ + + | Dara Weldon | Person | Self | [birth year] | [address] | | | al/Fam | | 1994 | [phone] | [address] [place] | | | [place] | | | 2 (Home) | [address] | + +--------+ +--------+ + + | Cory Weldon | Person | Father | [birth year] | [address] | | | al/Fam | | 1971 | [phone] | [place] [address] | | | [place] | | | 9 (Home) | | + +--------+ +--------+ + + Advance Directives + + + + + | Type | Date Recorded | Patient | Explanation | | | | 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
--- OUTSIDE RECORDS SUMMARY | ~2019-07-14 | XMS | Encounter Summary ---
Demographics + + + | Address | [address] | | | [place] [address] | + + + | Home Phone [...] | | | | | [place] [address] | | + + + + + | Thania Mallory | ECON | [address] | | | | | [place] [address] | | + + + + + | Deidra Weldon | ECON | [address] | | | | | [place] | | | | | [address] | | + + + + + Care Team Providers + +------+ + | Care Cut Off Tender Glass Name | Role | Phone | + [...] | | | | | Physician's | [place], [place] | | | | | [place], [facility] floor | [address] | | | | | [place], [place] | [phone] | | | | | [address] | | | | | | [phone] | | | +--------+ + + + [...] [facility] | | | | | | [address] | | | | | | [phone] | | | | | | | | +--------+ + + + + documented as of this encounter Visit Diagnoses Not on filedocumented in this encounter"
--- OUTSIDE RECORDS SUMMARY | ~2019-07-14 | XMS | Encounter Summary ---
Demographics + + + | Address | [address] | | | [place] [address] | + + + | Home Phone [...] + + + | Author | [facility] | | | and [place] | + + + | Organization | [facility] | | [...] Team Providers + +------+ + | Care Comic Writer Name | Role | Phone | + [...] | | KIDNEY TRANSPLANT | [address] [place], | | | | | [address] | [place] [address] | | | | | [address] [place] [address] | [phone] | | | | | [address] | | | | | | [phone] | | | +--------+ + + + [...]
--- OUTSIDE RECORDS SUMMARY | ~2019-07-14 | XMS | Encounter Summary ---
Demographics + + + | Address | [address] | | | [place] [address] | + + + | Home Phone [...] | | | | | [place] [address] | | + + + + + | Thania Mallory | ECON | [address] | | | | | [place] [address] | | + + + + + | Deidra Weldon | ECON | [address] | | | | | [place] | | | | | [address] | | + + + + + Care Team Providers + +------+ + | Care Fleet Manager/Dispatch Name | Role | Phone | + [...] | | [address] | [facility] | | | | | [address] [place], | [place], [place] | | | | | [place] [address] | [address] | | | | | [phone] | | | +--------+ + + + [...] Denise | | | | | | [place], [place] | | | | | | [address] | | | | | | [phone] | | | | | | | | +--------+ + + + + documented as of this encounter Visit Diagnoses Not on filedocumented in this encounter"
--- OUTSIDE RECORDS SUMMARY | ~2019-07-14 | XMS | Encounter Summary ---
Demographics + + + | Address | [address] | | | [place] [address] | + + + | Home Phone [...] | [facility] | | | and [place] | + + + | Organization | [facility] | | | [...] Team Providers + +------+ + | Care Hoeing Row Boss Name | Role | Phone | + [...] Description | +--------+--------+ + + + | 01/01/ | Refill | [facility] [place] | Jorje Camp | Medication Refill | | 2019 | | NEPHROLOGY [address] | M, DO [address] | | | | | [address] | [place] | | | | | [place], [place] | [place], [place] | | | | | [address] | [address] | | | | | [phone] | | | +--------+--------+ + + + [...]
--- OUTSIDE RECORDS SUMMARY | ~2019-07-14 | XMS | Encounter Summary ---
Demographics + + + | Address | [address] | | | [place] [address] | + + + | Home Phone [...] | | | | | [place] [address] | | + + + + + | Thania Mallory | ECON | [address] | | | | | [place] [address] | | + + + + + | Deidra Weldon | ECON | [address] | | | | | [place] | | | | | [address] | | + + + + + Care Team Providers + +------+ + | Care Director Music Name | Role | Phone | + [...] | | | [address] | [place] | | | | | [place], | [place], [place] | | | | | [place] [address] | [address] | | | | | [phone] | [phone] | | | | | | | [...] Denise | | | | | | [place], [place] | | | | | | [address] | | | | | | [phone] | | | | | | | | +--------+ + + + + documented as of this encounter Visit Diagnoses Not on filedocumented in this encounter"
--- OUTSIDE RECORDS SUMMARY | ~2019-07-14 | XMS | Encounter Summary ---
Demographics + + + | Address | [address] | | | [place] [address] | + + + | Home Phone [...] Author | [facility] | | | and [place] | + + + | Organization | [facility] | | [...] Providers + +------+ + | Care Patient Care Technician Name | Role | Phone | [...] + + | 11/15/ | Telephone | [facility] | George Torres RN | Medication Problem | | 2019 | | [address] | | ([facility] O2) | | | | [place] | | | | | | [address] | | | | | | [phone] | | | +--------+ + + + [...]
--- OUTSIDE RECORDS SUMMARY | ~2019-07-14 | XMS | Encounter Summary ---
Demographics + + + | Address | [address] | | | [place] [address] | + + + | Home Phone [...] | | | | | [place] [address] | | + + + + + | Thania Mallory | ECON | [address] | | | | | [place] [address] | | + + + + + | Deidra Weldon | ECON | [address] | | | | | [place] | | | | | [address] | | + + + + + Care Team Providers + +------+ + | Care Roll Repairer Name | Role | Phone | [...] | Sudhakar Joy | Lamonte | | 2014 | | Nephrology at | MD Emanuel [address] [facility] | | | | | [place] | [facility] | | | | | [facility] | [place], [place] | | | | | [address] | [address] | | | | | [place] | [phone] | | | | | [facility], | | | | | | [address] [place] [address] | | | | | | [place], [place] | | | | | | [address] | | | | | | [phone] | | | +--------+ + + + [...] [place] | | | | | | [address] | | | | | | [phone] | | | | | | | | +--------+ + + + + documented as of this encounter Visit Diagnoses Not on filedocumented in this encounter"
--- OUTSIDE RECORDS SUMMARY | ~2019-07-14 | XMS | Encounter Summary ---
Demographics + + + | Address | [address] | | | [place] [address] | + + + | Home Phone [...] | | | | | [place] [address] | | + + + + + | Thania Mallory | ECON | [address] | | | | | [place] [address] | | + + + + + | Deidra Weldon | ECON | [address] | | | | | [place] | | | | | [address] | | + + + + + Care Team Providers + +------+ + | Care Editor News Name | Role | Phone | + [...] | | | | [address] [place] | [facility] | | | | | [facility], | [place], [place] | | | | | [place] [address] | [address] | | | | | [phone] | | | +--------+ + + + [...] Denise | | | | | | [place] | | | | | | [address] | | | | | | [phone] | | | | | | | | +--------+ + + + + documented as of this encounter Visit Diagnoses Not on filedocumented in this encounter"
--- OUTSIDE RECORDS SUMMARY | ~2019-07-14 | XMS | Encounter Summary ---
Demographics + + + | Address | [address] | | | [place] [address] | + + + | Home Phone [...] Author | [facility] | | | and [place] | + + + | Organization | [facility] | [...] Providers + +------+ + | Care Oil Agent Name | Role | Phone | [...] NEPHROLOGY [address] | MD [address] | | | | | [address] | [address] [place] | | | | | [place], [place] | [place] [address] | | | | | [address] | [phone] | | | | | [phone] | | | +--------+ + + + [...]
--- OUTSIDE RECORDS SUMMARY | ~2019-07-14 | XMS | Encounter Summary ---
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 iron sucrose (VENOFER) 20 mg/mL injection Inject [...] the Nephrology Team in 2 weeks. CC: [employer] Fina Joy MD, [facility], [facility] Liliana james signed by Jorje Camp DO at 09/20/2014 [...]
--- OUTSIDE RECORDS SUMMARY | ~2019-07-14 | XMS | Encounter Summary ---
Demographics + + + | Address | [address] | | | [place] [address] | + + + | Home Phone [...] | | | | | [place] [address] | | + + + + + | Thania Mallory | ECON | [address] | | | | | [place] [address] | | + + + + + | Deidra Weldon | ECON | [address] | | | | | [place] | | | | | [address] | | + + + + + Care Team Providers + +------+ + | Care Environmental Health Safety Engineer Name | Role | Phone | [...] | | | | | [address], | [place], [place] | | | | | [place] [address] | [address] | | | | | [phone] | | | +--------+ + + + [...] Denise | | | | | | [place], [place] | | | | | | [address] | | | | | | [phone] | | | | | | | | +--------+ + + + + documented as of this encounter Visit Diagnoses Not on filedocumented in this encounter"
--- OUTSIDE RECORDS SUMMARY | ~2019-07-14 | XMS | Encounter Summary ---
Demographics + + + | Address | [address] | | | [place] [address] | + + + | Home Phone [...] | [facility] | | | and [place] | + + + | Organization | [facility] [...] | + + +---------+ + | Saundra Malloyr | ECON | Unknown | | + + +---------+ + Care Team Providers + +------+ + | Care Public Health Administrator Name | Role | Phone | [...] | | [address] | [place] | | | | | [place], [place] | [place], [place] | | | | | [address] | [address] | | | | | [phone] | | | +--------+--------+ + + + [...]
--- OUTSIDE RECORDS SUMMARY | ~2019-07-14 | XMS | Encounter Summary ---
Demographics + + + | Address | [address] | | | [place] [address] | + + + | Home Phone [...] + | Author | [facility] | | | and [place] | + + + | Organization | [facility] | | | and [place] [...] Team Providers + +------+ + | Care Writing Center Director Name | Role | Phone | + +------+ + PCP | Unavailable | + +------+ + Encounter Details +--------+ + + + + | Date | Type | Department | Care Team | Description | +--------+ + + + + | 05/14/ | Hospital | [facility] | Michelle Benitez, | | | 2008 | Encounter | HOSPITAL EMERGENCY | [address] | | | | | [address] | [place], [place] | | | | | [address] [place] | [address] | | | | | [address] | [phone] | | | | | [phone] | | | +--------+ + + + [...]
--- OUTSIDE RECORDS SUMMARY | ~2019-07-14 | XMS | Encounter Summary ---
Demographics + + + | Address | [address] | | | [place] [address] | + + + | Home Phone [...] | | | | | [place] [address] | | + + + + + | Thania Mallory | ECON | [address] | | | | | [place] [address] | | + + + + + | Deidra Weldon | ECON | [address] | | | | | [place] | | | | | [address] | | + + + + + Care Team Providers + +------+ + | Care Archives Director Name | Role | Phone | [...] | MD Emanuel [address] [facility] | Recommendations | | | | [place] | [place] | | | | | [facility] | [place], [place] | | | | | [address] | [address] | | | | | [place] | [phone] | | | | | [facility], | | | | | | [address] [place] [address] | | | | | | [place], [place] | | | | | | [address] | | | | | | [phone] | | | +--------+ + + + [...] [place] | | | | | | [address] | | | | | | [phone] | | | | | | | | +--------+ + + + + documented as of this encounter Visit Diagnoses Not on filedocumented in this encounter"
--- OUTSIDE RECORDS SUMMARY | ~2019-07-14 | XMS | Encounter Summary ---
Demographics + + + | Address | [address] | | | [place] [address] | + + + | Home Phone [...] | | | | | [place] [address] | | + + + + + | Thania Mallory | ECON | [address] | | | | | [place] [address] | | + + + + + | Deidra Weldon | ECON | [address] | | | | | [place] | | | | | [address] | | + + + + + Care Team Providers + +------+ + | Care Chronometer Adjuster Name | Role | Phone | [...] | | | [place], | [place] [address] | | | | | [place] [address] | [phone] | | | | | | | [...] Denise | | | | | | [place], [place] | | | | | | [address] | | | | | | [phone] | | | | | | | | +--------+ + + + + documented as of this encounter Visit Diagnoses Not on filedocumented in this encounter"
--- OUTSIDE RECORDS SUMMARY | ~2019-07-14 | XMS | Encounter Summary ---
Demographics + + + | Address | [address] | | | [place] [address] | + + + | Home Phone [...] Author | [facility] | | | and Josephana | + + + | Organization | [facility] | | | and Josephana [...] Team Providers + +------+ + | Care Farm Appraiser Name | Role | Phone | + [...] + + | 04/18/ | Hospital | [facility] | French Alexandre DO | ESRD needing | | 2020 - | Encounter | [facility] | [address] [place] | dialysis (HCC) | | | | CARE FLOOR [address] | [address] [place], [place] | (Primary Dx); | | 04/23/ | | [address] | [address] | Hypervolemia, | | 2019 | | [place], [place] | [phone] | unspecified | | | | [address] | | hypervolemia type; | | | | [phone] | Daniela Lara MD | Noncompliance with | | | | | [address] | renal dialysis | | | | | [place] [address] | ([facility]); | | | | | [phone] | Costochondritis; | | | | | | Recurrent right | | | | | Arash Bonilla MD | pleural effusion; | | | | | [address] | Acute on chronic | | | | | [place] [address] | combined systolic | | | | | [phone] | and diastolic CHF | | | | | | (congestive heart | | | | | | failure) ([facility]); At | | | | | | high risk for | | | | | | electrolyte | | | | | | imbalance; 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 | | | | | | failure ([facility]); ESRD | | | | | | on hemodialysis | | | | | | ([facility]); Hyperkalemia; | | | | | | Anemia in ESRD | | | | | | (end-stage renal | | | | | | disease) ([facility]); | | | | | | [...] might be different fr om the original. Merged With [facility]: Hospitalist Discharge Summary Patient Name: [...] given PRN Dilaudid, PRN Phenergan and PRN Stella. Gradually her symptoms are improved. At home [...] Abnormal ECG Confirmed by Maurice Bowers MD ([id number]) on 04/22/2019 12:26:15 PM Lab Results Component [...] small to moderate right-sided effusion. Signed by: Dari fitch M.D., David Sign Date/Time: 04/19/2019 12:29 [...] the pleural space is punctured with an 5-Montenegrin thoracentesis catheter. Fluid is aspirated w ithout [...] Galvan David Sign Date/Time: 04/18/2019 3:29 PM Disposition: home Condition: Stable Code Status: Full Code No discharge procedures on file. Follow up: Jonathan Alonso MD [address] [facility] [place] [id number] In 2 weeks Discharge Medications New Medications [...] through Care Everywhere.Acetaminophen; Hydrocodone tablets or capsules (Azeri)documented in this encounter Medications at Time of [...] | | renal disease) ([facility]) | protocol | | | | [...] tablet by | 20 | 0 | /20 | | | HYDROcodone-acetamin | mouth every 6 hours | tablet | | 20 | | | ophen (NORCO) 5-325 | as [...] of this note might be different from dari burnham original. 8105/8105-01 LOS: 5 days Dara Weldon is a 24 y.o. woman with oliguric ESRD who follows up with Dr. Jonathan Alonso MD as primary care provider. 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 She is historically non adherent to dialysis/dietary fluid/K/Po4/ Na restriction. She is normally dialyzed on a Monday, Monday, Monday schedule at [facility] using left upper extremity AV fistula. She used to see Dr. Trent Camp but switched to Dr. Anguiano. She also has combined diastolic/systolic congestive heart failure and was recently hospital ized at [facility] with hypervolemia and right pleural effusion (12/10/18-12/14/18). [...] was completed later after rounds. Dictation software, YAMAP, was used which may contain error for [...] including but not limi wilmer to . ubawatArash MD - 0 04/22/2019 12:49 PM PST Merged With [facility]: Hospitalist Progress [...] also had hyperkalemia, large right pleural effusion. 04/19/[id number]-[id number] thoracentesis done and 1500 mL fluid removed Receiving HD Subjective and overnight events : Complain of right-sided chest pain. Complain of mil d shortness of breath. This morning she did not want to take Stella, and asked for Dilaudid. Receiving dialysis currently. [...] 12.5 g Intravenous Dialysis - PRN Cliff Mcneill MD albuterol-ipratropium 2.5-0.5 mg/3 mL nebulizer solution 3 mL 3 mL Nebulization RT Q6H PRN Daniela Lara MD clonazePAM (klonoPIN) tablet 0.25 mg 0.25 mg Oral Daily PRN Daniela Lara MD 0.25 mg at 04/18/192055 hydrALAZINE (APRESOLINE) injection 20 mg 20 mg Intravenous Q4H PRN Daniela Lara MD HYDROcodone-acetaminophen (NORCO) 5-325 mg per tablet 1 tablet 1 tablet Oral Q6H PRN Serjio Bonilla MD 1 tablet at 04/22/19 0553 [...] 100 mL Intravenous Dialysis - PRN Cliff Mcneill MD Continuous Infusions heparin (dialysis) OBJECTIVE Vital [...] Abnormal ECG Confirmed by Maurice Bowers MD ([id number]) on 04/22/2019 12:26:15 PM Comprehensive Metabolic Panel [...] mL/min/1.73m2 No results for input(s): PHART, PO2ART, DUV3LWW, K8KEVYEF, BEART in the last 168 hours. Recent [...] this chart may have been created with YAMAP voice recognition software. Occasi onal wrong-word or [...] ESRD who [facility]. 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 She is historically non adherent to dialysis/dietary fluid/K/Po4/ Na restriction. She is normally dialyzed on a Monday, Monday, Monday schedule at [facility] using left upper extremity AV fistula. She used to see Dr. Trent Camp but switched to Dr Sujit Anguiano. She also has combined diastolic/systolic congestive heart failure and was recently hospital ized at [facility] with hypervolemia and right pleural effusion(12/10/18-12/14/18). She [...] tablet by mouth 2 times daily. 01/10/19 Payt ann DO citalopram (CELEXA) 20 mg tablet [...] Carolina Mahmood DO Vital Signs: Reviewed BP 112/63 | Pulse [...] was completed later after rounds. Dictation software, YAMAP, was used which may contain error for [...] MD - 0 04/21/2019 10:39 AM PST Merged With [facility]: Hospitalist Progress [...] also had hyperkalemia, large right pleural effusion. 04/19/[id number]-eteyr-isfia thoracentesis done and 1500 mL fluid removed [...] 12.5 g Intravenous Dialysis - PRN Cliff Mcneill MD albuterol-ipratropium 2.5-0.5 mg/3 mL nebulizer solution 3 mL 3 mL Nebulization RT Q6H PRN Danilea Lara MD clonazePAM (klonoPIN) tablet 0.25 mg 0.25 mg Oral Daily PRN Daniela Lara MD 0.25 mg at 04/18/192055 hydrALAZINE (APRESOLINE) injection 20 mg 20 mg Intravenous Q4H PRN Daniela Lara MD HYDROcodone-acetaminophen (NORCO) 5-325 mg per tablet 1 tablet 1 tablet Oral Q6H PRN Serjio Bonilla MD 1 tablet at 04/21/19 0929 [...] 100 mL Intravenous Dialysis - PRN Cliff Mcneill MD Continuous Infusions OBJECTIVE Vital Signs: BP [...] mL/min/1.73m2 No results for input(s): PHART, PO2ART, LZT5BCK, Q8QJVJXK, BEART in the last 168 hours. Recent [...] small to moderate right-sided effusion. Signed by: Dari fitch M.D., David Sign Date/Time: 04/19/2019 12:29 [...] the pleural space is punctured with an 5-Montenegrin thoracentesis catheter. Fluid is aspirated w ithout [...] of IV Dilaudid today and adding PRN Stella. Medication changes plan discussed with patient and she is in agreement with current plan of care, questions answered Disposition: Inpatient Code Status: Full Code Part of this record may have been copied from previous notes to maintain continuity of care . Portions of this chart may have been created with YAMAP voice recognition software. Occasi onal wrong-word or sound-alike substitutions may have occurred due to the inherent [place] itations of voice recognition software. Please read the chart carefully and recognize, using context, where these substitutions have occurred. Arash Bonilla MD 04/21/2019 10:39 AM Arash Perez MD - 04/20/2019 11:20 AM PST Merged With [facility]: Hospitalist Progress [...] also had hyperkalemia, large right pleural effusion. 04/19/[id number]-droqe thoracentesis done and 1500 mL fluid removed [...] 12.5 g Intravenous Dialysis - PRN Cliff Mcneill MD albuterol-ipratropium 2.5-0.5 mg/3 mL nebulizer solution [...] 6.25 mg 6.25 mg Intravenous Q6H PRN Oraila Bonilla MD 6.25 mg at 04/20/19 0612 senna (SENOKOT) tablet 8.6 mg 8.6 mg Oral BID PRN Daniela Lara MD sodium chloride 0.9% (NS) bolus 100 mL 100 mL Intravenous Dialysis - PRN Cliff Mcneill MD Continuous Infusions OBJECTIVE Vital Signs: BP [...] mL/min/1.73m2 No results for input(s): PHART, PO2ART, SAK1PMK, Z1TVBCVL, BEART in the last 168 hours. Recent [...] small to moderate right-sided effusion. Signed by: Dari fitch M.D., David Sign Date/Time: 04/19/2019 12:29 [...] the pleural space is punctured with an 5-Montenegrin thoracentesis catheter. Fluid is aspirated w ithout [...] Chest pain COMPARISON: XR CHEST AP PORTABLE (01/25/20 19); XR CHEST 2 VIEWS (01/23/2019); XR CHEST [...] this chart may have been created with YAMAP voice recognition software. Occasi onal wrong-word or sound-alike substitutions may have occurred due to the inherent livingston itations of voice recognition software. Please read the chart carefully and recognize, using context, where these substitutions have occurred. Arash Bonilla MD 04/20/2019 11:20 AM Arash Perez MD - 04/19/2019 2:47 PM PST Merged With [facility]: Hospitalist Progress [...] also had hyperkalemia, large right pleural effusion. 04/19/[id number]-zxgvv thoracentesis done and 1500 mL fluid removed Subjective and overnight events : right-sided thoracentesis done. Currently receivin g dialysis. This morning had headache did not improve with Tylenol and patient requested Di laudid, PRN IV Dilaudid ordered . Zofran not effective for nausea so Phenergan ordered. Abe hamilton denies nausea or vomiting currently. Has [...] g 12.5 g Intravenous Dialysis - PRN Clfif Mcneill MD albuterol-ipratropium 2.5-0.5 mg/3 mL nebulizer solution [...] 100 mL Intravenous Dialysis - PRN Cliff Mcneill MD Continuous Infusions heparin (dialysis) 500 Units/hr [...] FLUID No results for input(s): PHART, PO2ART, DES5JPG, D4ANYZPM, BEART in the last 168 hours. Recent [...] small to moderate right-sided effusion. Signed by: Dair fitch M.D., David Sign Date/Time: 04/19/2019 12:29 [...] the pleural space is punctured with an 5-Montenegrin thoracentesis catheter. Fluid is aspirated w ithout [...] this chart may have been created with YAMAP voice recognition software. Occasi onal wrong-word or [...] on a Monday, Monday, Monday schedule at [facility] using left upper extremity AV fistula. She used to see Dr. Trent Camp but switched to Dr. Anguiano. She also has combined diastolic/systolic congestive heart failure and was recently hospital ized at [facility] with hypervolemia and right pleural effusion(12/10/18-12/14/18). She [...] snacks twice daily 06/01/18 06/01/19 Historical Provider, MD valsartan (DIOVAN) 40 mg tablet Take 1 tablet by mouth Daily. 01/22/19 Carolina Mahmood, Vital Signs: Reviewed BP 102/52 | Pulse [...] was completed later after rounds. Dictation software, YAMAP, was used which may contain error for [...] on a Monday, Monday, Monday schedule at [facility] using left upper extremity AV fistula. She used to see Dr. Trent Camp but switched to Dr. Anguiano. She also has combined diastolic/systolic congestive heart failure and was recently hospital ized at [facility] with hypervolemia and right pleural effusion (12/10/18-12/14/18). She has not been adherent to her dialysis prescription (emotional reasons). Lab work showed metabolic acidosis/hyperkalemia. Nephrology consultation was requested by Dr. Webber for evaluation and management of ESRD Chronic Severe Associated with: fluid electrolyte acid base imbalances including hyperkalemia/metabolic a cidosis. Assess need for hd/uf Seen and examined on hd with hd rn Cayden (seen earlier by dr mcneill ordered hd took over from him this [...] was completed later after rounds. Dictation software, Dragon, was used which may contain error for [...] to . documented in this encou nter Plan of Treatment + +------+--------+ + + [...] + documented in this encounter Results US Guided [...] | | space is punctured with an 5-Montenegrin thoracentesis catheter. Fluid is | | | [...] + + | Sonido Steele Results In 04/23/2019 5:11 PM PST | [...] the pleural space is punctured with an 5-Montenegrin | | thoracentesis catheter. Fluid is aspirated [...] + | No pneumothorax. Signed by: Eliza Echols Julie Sign | [facility] | | Date/Time: [...] | | | | Signed by: Eliza Echols, Fely | | Sign Date/Time: 04/23/2019 11:11 AM [...] 8 (L)Comment: GFR <60: | >60 | KR [...] | | | | performed at [facility];[address] | | | | | | [facility];[place], [place] | | | | | | [address] | | | | + + + + + + + + | Specimen | + + | Blood | + + + + + + + | Performing | Address | City/State/Zipcode | Phone Number | | Organization | | | | + + + + + | [facility] | [address] | [place] [address] | [phone] | + + + + + ECG [...] at | | | | | | [place] | | | | | | [address] [address] | | | | + + + + + + + + | Specimen | + + | Blood | + + + + + + + | Performing | Address | City/State/Zipcode | Phone Number | | Organization | | | | + + + + + | [facility] | [address] | [place] [address] | [phone] | + + + + + Troponin I (04/22/2019 7:55 AM PST) + + + + + + | Component | Value | Ref Range | Performed | Pathologist | | | | | At | Signature | + + + + + + | Troponin I | 0.073 (H)Comment: 0.04 | 0.00 - 0.04 | [facility] | | | | ng/mL or [...] at | | | | | | [facility];[address] [place] [address] | | | | | | [facility];[place] [address] | | | | + + + + + + + + | Specimen | + + | Blood | + + + + + + + | Performing | Address | City/State/Zipcode | Phone Number | | Organization | | | | + + + + + | [facility] | [address] | [place] [address] | [phone] | + + + + + Basic [...] 19 (L)Comment: GFR <60: | >60 | [facility] | | | GFR | CHRONIC [...] | | | | performed at [facility];[address] | | | | | | [facility];[place], [place] | | | | | | [address] | | | | + + + + + + + + | Specimen | + + | | + + + + + + + | Performing | Address | City/State/Zipcode | Phone Number | | Organization | | | | + + + + + | [facility] | [address] | [place] [address] | [phone] | + + + + + Basic [...] 32 (L)Comment: GFR <60: | >60 | [facility] | | | GFR | CHRONIC [...] | | | | performed at [facility];[address] | | | | | | [facility];[place], [place] | | | | | | [address] | | | | + + + + + + + + | Specimen | + + | Blood | + + + + + + + | Performing | Address | City/State/Zipcode | Phone Number | | Organization | | | | + + + + + | [facility] | [address] | [place] [address] | [phone] | + + + + + XR Chest Inspiration and Expiration (04/19/2019 12:01 PM PST) + + | Specimen | + + | | + + + + + | Impressions | Performed At | + + + | 1. No pneumothorax. 2. Decrease in now small to moderate | [facility] | | right-sided effusion. Signed by: Eliza Galvan, Florian | | | Sign Date/Time: 04/19/2019 12:29 [...] + | Cedric, Rad Results In - 04/19/2019 12:33 PM PST | | XR [...] Eliza Galvan, Florian | | Sign Date/Time: 04/19/2019 12:29 PM [...] | pleural space is punctured with an 5-Montenegrin thoracentesis catheter. | | | Fluid is aspirated without complication. The patient tolerated the | | | procedure well. No immediate complications. Estimated Blood Loss: | | | Minimal. | | + + + + + | Procedure Note | + + | Cedric, Rad Results In - 04/19/2019 3:55 PM PST | | ULTRASOUND [...] the pleural space is punctured with an 5-Montenegrin | | thoracentesis catheter. Fluid is aspirated [...] | | | Body Fluid | a order processor validated | | LABORATORY | | | | sample type for this | | | | | | method. No | | | | | | referenceranges have | | | | | | been established.Testing | | | | | | performed at [facility], [address] | | | | [address], | | | | | | [place] [address] | | | | + + + + + + | SOURCE | THORACENTESIS | | KR | | | | FLUIDComment: Testing | | LABORATORY | | | | performed at [facility];[address] | | | | | | [address];[place] | | | | | | [address] | | | | + + + + + + + + | Specimen | + + | Body Fluid | + + + + + + + | Performing | Address | City/State/Zipcode | Phone Number | | Organization | | | | + + + + + | [facility] | [address] | [place] [address] | [phone] | + + + + + Cell [...] | | | Counted | performed at [facility];[address] | | LABORATORY | | | | [address];[place], [place] | | | | | | [address] | | | | + + + + + + + + | Specimen | + + | Body Fluid | + + + + + + + | Performing | Address | City/State/Zipcode | Phone Number | | Organization | | | | + + + + + | [facility] | [address] | [place] [address] | [phone] | + + + + + Lactate dehydrogenase, body fluid (04/19/2019 10:26 AM PST) + + + + + + | Component | Value | Ref Range | Performed | Pathologist | | | | | At | Signature | + + + + + + | Lactate | 98Comment: This is not a | U/L | [facility] | | | Dehydrogena | order processor validated | | LABORATORY | | | se, Body | sample type for this | | | | | Fluid | method. No | | | | | | referenceranges have | | | | | | been established.Testing | | | | | | performed at [facility], [address] | | | | | | [address] [facility], | | | | | | [place] [address] | | | | + + + + + + + + | Specimen | + + | Body Fluid | + + + + + + + | Performing | Address | City/State/Zipcode | Phone Number | | Organization | | | | + + + + + | [facility] | [address] | [place] [address] | [phone] | + + + + + Protein, Total (04/19/2019 4:49 AM PST) + + + + + + | Component | Value | Ref Range | Performed | Pathologist | | | | | At | Signature | + + + + + + | Protein, | 6.4Comment: Testing | 6.3 - 8.2 g/dL | [facility] | | | Total | performed at [facility];[address] | | LABORATORY | | | | [address];[place], [place] | | | | | | [address] | | | | + + + + + + + + | Specimen | + + | Blood | + + + + + + + | Performing | Address | City/State/Zipcode | Phone Number | | Organization | | | | + + + + + | [facility] | [address] | [place] [address] | [phone] | + + + + + Lactate [...] [facility] | | | | performed at [facility];[address] | | LABORATORY | | | | [address] [facility];[place], [place] | | | | | | [address] | | | | + + + + + + + + | Specimen | + + | Blood | + + + + + + + | Performing | Address | City/State/Zipcode | Phone Number | | Organization | | | | + + + + + | [facility] | [address] | [place] [address] | [phone] | + + + + + CBC [...] 0.02Comment: Testing | 0.00 - 0.10 | [facility] | | | Absolute | performed at [facility], [address] | [address] | LABORATORY | | | | [address], | | | | | | [place] [address] | | | | + + + + + + + + | Specimen | + + | Blood | + + + + + + + | Performing | Address | City/State/Zipcode | Phone Number | | Organization | | | | + + + + + | [facility] | [address] | [place] [address] | [phone] | + + + + + Basic [...] | | | performed at [facility], [address] | | | | | | [facility], | | | | | | [place] [address] | | | | + + + + + + + + | Specimen | + + | Blood | + + + + + + + | Performing | Address | City/State/Zipcode | Phone Number | | Organization | | | | + + + + + | [facility] | [address] | [place] [address] | [phone] | + + + + + XR Chest 2 Vws (04/18/2019 2:03 PM PST) + + | Specimen | + + | | + + + + + | Impressions | Performed At | + + + | Increased, now large right pleural effusion with associated | [facility] | | atelectasis.. Signed by: Eliza Gavlan, Florian Sign | | | Date/Time: 04/18/2019 3:29 PM [...] + | Sonido Steele Results In - 04/18/2019 3:33 PM PST [...] + + | Performing | Address | City/State/[facility] | Phone Number | | Organization [...] B | NON REACTIVEComment: | NR | [facility] | | | Surface Ag | Testing performed at | | LABORATORY | | | | [facility], [address] | | | | | | [place] | | | | | | [address] | | | | + + + + + + + + | Specimen | + + | Blood | + + + + + + + | Performing | Address | City/State/Zipcode | Phone Number | | Organization | | | | + + + + + | [facility] | [address] | [place] [address] | [phone] | + + + + + Hepatitis [...] | | | performed at [facility], [address] | | | | | | [address], | | | | | | [place] [address] | | | | + + + + + + + + | Specimen | + + | Blood | + + + + + + + | Performing | Address | City/State/Zipcode | Phone Number | | Organization | | | | + + + + + | [facility] | [address] | [place] [address] | [phone] | + + + + + Hepatitis B Core Ab, Total (04/18/2019 1:32 PM PST) + + + + + + | Component | Value | Ref Range | Performed | Pathologist | | | | | At | Signature | + + + + + + | Hepatitis B | NON REACTIVEComment: | NR | [facility] | | | Core Ab | Testing performed at | | LABORATORY | | | Total | [facility], [address] | | | | | | [place] | | | | | | [address] | | | | + + + + + + + + | Specimen | + + | Blood | + + + + + + + | Performing | Address | City/State/Zipcode | Phone Number | | Organization | | | | + + + + + | [facility] | [address] | [place] [address] | [phone] | + + + + + Phosphorus (04/18/2019 1:32 PM PST) + + + + + + | Component | Value | Ref Range | Performed | Pathologist | | | | | At | Signature | + + + + + + | Phosphorus | 8.4 (H)Comment: Testing | 2.3 - 4.8 mg/dL | [facility] | | | | performed at [facility];[address] | | LABORATORY | | | | [address];[place] | | | | | | [address] | | | | + + + + + + + + | Specimen | + + | Blood | + + + + + + + | Performing | Address | City/State/Zipcode | Phone Number | | Organization | | | | + + + + + | [facility] | [address] | [place] [address] | [phone] | + + + + + D-Dimer (04/18/2019 1:32 PM PST) + + + + + + | Component | Value | Ref Range | Performed | Pathologist | | | | | At | Signature | + + + + + + | D-DIMER | 1.37 (H)Comment: D Dimer | 0.19 - 0.50 | [facility] | | | | results less [...] | | | | performed at [facility];[address] | | | | | | [facility];[place], [place] | | | | | | [address] | | | | + + + + + + + + | Specimen | + + | Blood | + + + + + + + | Performing | Address | City/State/Zipcode | Phone Number | | Organization | | | | + + + + + | [facility] | [address] | [place] [address] | [phone] | + + + + + Protime [...] | | | | performed at [facility] [facility];[address] | | | | | | [address];[place], [place] | | | | | | [address] | | | | + + + + + + + + | Specimen | + + | Blood | + + + + + + + | Performing | Address | City/State/Zipcode | Phone Number | | Organization | | | | + + + + + | [facility] | [address] | [place] [address] | [phone] | + + + + + Comprehensive [...] 6 (L)Comment: GFR <60: | >60 | [facility] | | | GFR | CHRONIC [...] | | | | | | MDRD [facility] traceable | | | | | | equation.Testing | | | | | | performed at [facility];[address] | | | | | | [facility];[place], [place] | | | | | | [address] | | | | + + + + + + + + | Specimen | + + | Blood | + + + + + + + | Performing | Address | City/State/Zipcode | Phone Number | | Organization | | | | + + + + + | [facility] | [address] | [place] [address] | [phone] | + + + + + CBC [...] 0.06Comment: Testing | 0.00 - 0.10 | ANDREY | | | Absolute | performed at [facility];[address] | K/uL | LABORATORY | | | | [address];[place], [place] | | | | | | [address] | | | | + + + + + + + + | Specimen | + + | Blood | + + + + + + + | Performing | Address | City/State/Zipcode | Phone Number | | Organization | | | | + + + + + | [facility] | [address] | [place] [address] | [phone] | + + + + + ECG [...] (500), | | | | | | marketing editor Parvez Calderón | | | | [...] | + + | ESRD needing dialysis ([facility]) End stage renal disease | + + | Hypervolemia, unspecified hypervolemia type | + + | Noncompliance with renal dialysis ([facility]) Noncompliance with renal dialysis | + + [...] | | | | Nebulization, RT Once, Ilttle | | PM PST | | | [...] | | | | First dose on [facility] 04/18/19 at | | AM PST | [...] | | | | | dose on [facility] 04/18/19 at 1800 | | AM [...] | | | | | CONTINUOUS, Starting [facility] 04/18/19 | | | | | | [...] | | | | DIALYSIS - ONCE, [facility] 04/18/19 at | | | | [...] | | | novoLIN R) injection (vial) 5 | | 20 3:08 | | | | | Units 5 Units, Intravenous, | | PM PST | | | | | ONCE, [facility] 04/18/19 at 1420, For 1 | [...] | ondansetron (ZOFRAN) injection | Given | 04/23/19 | 4 mg | | | | 4 mg 4 mg, Intravenous, EVERY 6 | | 20 10:55 | | | | | HOURS PRN, Nausea, Vomiting, | | AM PST | | | | | Starting [facility] 04/18/19 at 1717, | | | [...] AM PST | | | | | Little 04/18/19 at 1800, Do not cut | [...] AM PST | | | | | [facility] 04/18/19 at 1724, Do not cut [...] - PRN, Hypotension, | | | Starting [facility] 04/18/19 at 1720, | | | [...] - PRN, Hypotension, | | | Starting [facility] 04/22/19 at 0858, | | | [...]
--- OUTSIDE RECORDS SUMMARY | ~2019-07-14 | XMS | Encounter Summary ---
Demographics + + + | Address | [address] | | | [place] [address] | + + + | Home Phone [...] + | Author | [facility] | | | and Josephana | + + + | Organization | [facility] | | | and [...] Providers + +------+ + | Care Business Instructor Name | Role | Phone | [...] | stage renal | [address] | [address] [place] [address] | | | | | disease) | Shun Griffin | [place] Gotti | | | | | ([facility]) | [address] | [address] [place] | | | | | Anemia in | [place], [place] | [place] | | | | | ESRD | [address] | [address] Phone: | | | | | (end-stage | Phone: | [phone] | | | | | renal | [phone] | Fax: | | | | | disease) | Fax: | [phone] | | | | | ([facility]) | [phone] | | | | | | Procedures [...] | renal disease) ([facility]) | | | | [address] | [address] | (Primary Dx) | | | | [place], [place] | [place], [place] | | | | | [address] | [address] | | | | | [phone] | | | +--------+ + + + [...]
--- OUTSIDE RECORDS SUMMARY | ~2019-07-14 | XMS | Encounter Summary ---
Demographics + + + | Address | [address] | | | [place] [address] | + + + | Home Phone [...] | | | | | [place] [address] | | + + + + + | Thania Mallory | ECON | [address] | | | | | [place] [address] | | + + + + + | Deidra Weldon | ECON | [address] | | | | | [place] | | | | | [address] | | + + + + + Care Team Providers + +------+ + | Care Ledger Poster Name | Role | Phone | + [...] | | [address] | [facility] | | | | | [address] [place], | [place], [place] | | | | | [place] [address] | [address] | | | | | [phone] | | | +--------+ + + + [...] [place] | | | | | | [address] | | | | | | [phone] | | | | | | | | +--------+ + + + + documented as of this encounter Visit Diagnoses Not on filedocumented in this encounter"
--- OUTSIDE RECORDS SUMMARY | ~2019-07-14 | XMS | Encounter Summary ---
Demographics + + + | Address | [address] | | | [place] [address] | + + + | Home Phone [...] | [facility] | | | and Josephana | + + + | Organization | [facility] | | | and [...] Team Providers + +------+ + | Care Veterans' Counselor Name | Role | Phone | [...] Linda [address] | Pre-evaluation (left | | | | KIDNEY TRANSPLANT | [address], | voice mail for pt | | | | [address] [place] | [place] [address] | to return call to | | | | [address] | [phone] | complete intake | | | | [address] | | quest.) | | | | [phone] | | | +--------+ + + + [...] of this encounter Progress Elodia Velasquez - 06/12/2018 9:42 AM PDTReferral: Called Dara at both numbers listed and lvm to return my call to complete intake questionn aire. documented in this enco unter Plan of Treatment Not on filedocumented as of this encounter Visit Diagnoses Not on filedocumented in this encounter"
--- OUTSIDE RECORDS SUMMARY | ~2019-07-14 | XMS | Encounter Summary ---
Demographics + + + | Address | [address] | | | [place] [address] | + + + | Home Phone [...] | | | | | [place] [address] | | + + + + + | Thania Mallory | ECON | [address] | | | | | [place] [address] | | + + + + + | Deidra Weldon | ECON | [address] | | | | | [place] | | | | | [address] | | + + + + + Care Team Providers + +------+ + | Care Dairy Science Teacher Name | Role | Phone | [...] | | | | [address] | [facility] | | | | | [facility], | [place], [place] | | | | | [place] [address] | [address] | | | | | [phone] | | | +--------+ + + + [...] Denise | | | | | | [place], [place] | | | | | | [address] | | | | | | [phone] | | | | | | | | +--------+ + + + + documented as of this encounter Visit Diagnoses Not on filedocumented in this encounter"
--- OUTSIDE RECORDS SUMMARY | ~2019-07-14 | XMS | Encounter Summary ---
Demographics + + + | Address | [address] | | | [place] [address] | + + + | Home Phone [...] | | | | | [place] [address] | | + + + + + | Thania Mallory | ECON | [address] | | | | | [place] [address] | | + + + + + | Deidra Weldon | ECON | [address] | | | | | [place] | | | | | [address] | | + + + + + Care Team Providers + +------+ + | Care Commercial Service Technician Name | Role | Phone | + +------+ + | Jonathan Alonso MD | PCP | | + +------+ + Encounter Details +--------+ + + + + | Date | Type | Department | Care Team | Description | +--------+ + + + + | 01/27/ | Ancillary | Registration [address] | Other, Faculty | | | 2005 | Registratio | Shun Elizondo | [phone] | | | | n | [address] Mailcode: [id number] | | | | | | [place], [place] | | | | | | [address] | | | | | | [phone] | | | +--------+ + + + [...] Denise | | | | | | [place], [place] | | | | | | [address] | | | | | | [phone] | | | | | | | [...] | [facility] | | | PATHOLOGY | [place] [facility] | | DEPARTMENT | | [...] Garcia | | | | | | [facility], | | | | | | [place],labeled [place] | | | | | | kidney [...] number | | | | | | [id number].[facility]/lab | | | | | | [...] wall | | | | | | wdangwcxA2c: | | | | | | NegativeFibrinogen: [...] | + + + + + | [facility] | [address] | [place] [address] | | | PATHOLOGY | [place] | | | + + + + + | [facility] | [address] | [place] [address] | | | PATHOLOGY | [place] | | | + + + + + documented in this encounter Visit Diagnoses Not on filedocumented in this encounter"
--- OUTSIDE RECORDS SUMMARY | ~2019-07-14 | XMS | Encounter Summary ---
Demographics + + + | Address | [address] | | | [place] [address] | + + + | Home Phone [...] | | | | | [place] [address] | | + + + + + | Thania Mallory | ECON | [address] | | | | | [place] [address] | | + + + + + | Deidra Weldon | ECON | [address] | | | | | [place] | | | | | [address] | | + + + + + Care Team Providers + +------+ + | Care Loan Secretary Name | Role | Phone | + [...] Evaluation | | | | [address] [place], | [place], [place] | (pre-listing | | | | [place] [address] | [address] | pediatric [place] [address] | | | | [phone] | | update) | +--------+ + + [...] Denise | | | | | | [place] | | | | | | [address] | | | | | | [phone] | | | | | | | | +--------+ + + + + documented as of this encounter Visit Diagnoses Not on filedocumented in this encounter"
--- OUTSIDE RECORDS SUMMARY | ~2019-07-14 | XMS | Encounter Summary ---
Demographics + + + | Address | [address] | | | [place] [address] | + + + | Home Phone [...] | | | | | [place] [address] | | + + + + + | Thania Mallory | ECON | [address] | | | | | [place] [address] | | + + + + + | Deidra Weldon | ECON | [address] | | | | | [place] | | | | | [address] | | + + + + + Care Team Providers + +------+ + | Care Fish Bin Tender Name | Role | Phone | [...] | | | | | [address] [place], | [place], [place] | | | | | [place] [address] | [address] | | | | | [phone] | [phone] | | | | | | | [...] Denise | | | | | | [place], [place] | | | | | | [address] | | | | | | [phone] | | | | | | | | +--------+ + + + + documented as of this encounter Visit Diagnoses Not on filedocumented in this encounter"
--- OUTSIDE RECORDS SUMMARY | ~2019-07-14 | XMS | Encounter Summary ---
Demographics + + + | Address | [address] | | | [place] [address] | + + + | Home Phone [...] | [facility] | | | and Josephana | + + + | Organization | [facility] | | [...] Providers + +------+ + | Care Plaster And Stucco Worker Name | Role | Phone | [...] [address] | renal disease) ([facility]) | | | | [address] | [address] | (Primary Dx) | | | | [place], [place] | [place], [place] | | | | | [address] | [address] | | | | | [phone] | | | +--------+ + + + [...] of documents of Clinic Attendance here at [facility], with the land title examiner, Elisabeth Quijano RN. Outpatient Prescriptions Marked as [...] A&O x3, at this point. 3. The [facility] Staff have given her every opportunity to succeed here at the Clinic in [place]. 4. Will recheck her in 2 weeks. : [place] Fina documented in thi s encounter Plan of Treatment Not on filedocumented as of this encounter Visit Diagnoses + + | Diagnosis | + + | ESRD (end stage renal disease) (HCC) - Primary End stage renal disease | + + documented in this encounter"
--- OUTSIDE RECORDS SUMMARY | ~2019-07-14 | XMS | Encounter Summary ---
Demographics + + + | Address | [address] | | | [place] [address] | + + + | Home Phone [...] | | | | | [place] [address] | | + + + + + | Thania Mallory | ECON | [address] | | | | | [place] [address] | | + + + + + | Deidra Weldon | ECON | [address] | | | | | [place] | | | | | [address] | | + + + + + Care Team Providers + +------+ + | Care Consumer Analyst Name | Role | Phone | [...] | | | | [address] [place] | [facility] | | | | | Park [facility], | [place], [place] | | | | | [place] [address] | [address] | | | | | [phone] | | | +--------+ + + + [...] [place] | | | | | | [address] | | | | | | [phone] | | | | | | | | +--------+ + + + + documented as of this encounter Visit Diagnoses Not on filedocumented in this encounter"
--- OUTSIDE RECORDS SUMMARY | ~2019-07-14 | XMS | Encounter Summary ---
Demographics + + + | Address | [address] | | | [place] [address] | + + + | Home Phone [...] | Author | [facility] | | | and Josephana | + + + | Organization | [facility] | | | and Josephana | + + + | Address | Unknown | + + + | Phone | Unavailable | + + + Support + + +---------+ + | Name | Relationship | Address | Phone | + + +---------+ + | Thania Malloyr | ECON | Unknown | | + + +---------+ + | Saundra Mallory | ECON | Unknown | | + + +---------+ + Care Team Providers + +------+ + | Care Brown Stock Washer Name | Role | Phone | [...] | Procedures | [place], [place] | [place] [address] | | | | | [place] | [address] | Phone: | | | | | ANASTOMOSIS, | Phone: | [phone] | | | | | AV,[address] SITE | [phone] | Fax: | | | | | | Fax: | [phone] | | | | | | [phone] | | +--------+ + + + + [...] | | | | | disease) | [place], Jaciel | [address] | | | | | ([facility]) | [address] [place] | [place], | | | | | | [place], [place] | [place] [address] | | | | | | [address] | Phone: | | | | | | Phone: | [phone] | | | | | | [phone] | Fax: | | | | | | Fax: | [phone] | | | | | | [phone] | | +--------+ + + + + + Encounter Details +--------+---------+ + + + | Date | Type | Department | Care Team | Description | +--------+---------+ + + + | 12/18/ | Office | [facility] | Blake | End stage renal | | 2013 | Visit | SURGERY [address] | MD Antonieta, FACS [address] | disease (HCC) | | | | ST [place], [place] | [facility] | (Primary Dx) | | | | [address] | [place] [address] | | | | | [phone] | [phone] | | | | | | | [...] Care ? Shahid Camargo Who is your City Detective/Kidney Specialist ? Dr. Camp When was the current dialysis access placed? July 2013 at [facility] in [place] What problems are there with the current dialysis access? 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 Patient used to have PD catheter for dialysis 2012--[facility] in [place] . Came out Jul, 2013 . Then got RIGHT IJ catheter. Also got catheter at [facility]. Live in [place]. Go es to [place] in [place] for dialysis. Now needs AVF. Is RIGHt hand dominant. No pains in hands. 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 Currently on [facility] for kidney transplant. Wants AVF in [...] for acceptable candidacy. Will f/u with [facility] Transplant Team. Shahid Cruz Raman's notes were not available to be reviewed in clinic today. PAST MEDICAL HISTORY Past Medical History She has a past medical history of HSP (Henoch-Schonlein purpura) nephritis (HCC) (1987) and ESRD (end stage renal disease) ([facility]). Past Surgical History She Past Surgical History [...] REPORT: PATIENT NAME : Dara Weldon EQUIPMENT: SonSearcheeze M-Turbo with 10-5 mHertz probe. INDICATIONS: Dialysis [...] in this encounter Plan of Treatment + + +--------+ + + | Name | Type | Priori | Associated Diagnoses | Order Schedule | | | | ty | | | + + +--------+ + + | * [facility] General | Outpatient | Routin | End [...]
--- OUTSIDE RECORDS SUMMARY | ~2019-07-14 | XMS | Encounter Summary ---
Demographics + + + | Address | [address] | | | [place] [address] | + + + | Home Phone [...] | | | | | [place] [address] | | + + + + + | Thania Mallory | ECON | [address] | | | | | [place] [address] | | + + + + + | Deidra Weldon | ECON | [address] | | | | | [place] | | | | | [address] | | + + + + + Care Team Providers + +------+ + | Care General Passenger Agent Name | Role | Phone | [...] | | | | [address] [place] | [facility] | | | | | [place], | [place], [place] | | | | | [place] [address] | [address] | | | | | [phone] | | | +--------+ + + + [...] [place] | | | | | | [address] | | | | | | [phone] | | | | | | | | +--------+ + + + + documented as of this encounter Visit Diagnoses Not on filedocumented in this encounter"
--- OUTSIDE RECORDS SUMMARY | ~2019-07-14 | XMS | Encounter Summary ---
Demographics + + + | Address | [address] | | | [place] [address] | + + + | Home Phone [...] | | | | | [place] [address] | | + + + + + | Thania Mallory | ECON | [address] | | | | | [place] [address] | | + + + + + | Deidra Weldon | ECON | [address] | | | | | [place] | | | | | [address] | | + + + + + Care Team Providers + +------+ + | Care Staffing Branch Manager Name | Role | Phone | [...] | | | | Caro [address] [place], | | | | | | [place] [address] | | | +--------+ + + + [...] | | | | | | [place], [place] | | | | | | [address] | | | | | | [phone] | | | | | | | [...] [facility] - | [address], | [place] [address] | | | IMMUNOGENETICS/TRANS | [address] | | | | [facility] | | | | + + + + + documented in this encounter Visit Diagnoses Not on filedocumented in this encounter"
--- OUTSIDE RECORDS SUMMARY | ~2019-07-14 | XMS | Encounter Summary ---
Demographics + + + | Address | [address] | | | [place] [address] | + + + | Home Phone [...] | | | | | [place] [address] | | + + + + + | Thania Mallory | ECON | [address] | | | | | [place] [address] | | + + + + + | Deidra Weldon | ECON | [address] | | | | | [place] | | | | | [address] | | + + + + + Care Team Providers + +------+ + | Care Surgical Tech Name | Role | Phone | [...] | | | [address] | [facility] | | | | | [address] [place], | [place], [place] | | | | | [place] [address] | [address] | | | | | [phone] | | | +--------+ + + + [...] Denise | | | | | | [place] | | | | | | [address] | | | | | | [phone] | | | | | | | | +--------+ + + + + documented as of this encounter Visit Diagnoses Not on filedocumented in this encounter"
--- OUTSIDE RECORDS SUMMARY | ~2019-07-14 | XMS | Encounter Summary ---
Demographics + + + | Address | [address] | | | [place] [address] | + + + | Home Phone [...] | Author | [facility] | | | and Josephana | + + + | Organization | [facility] [...] Team Providers + +------+ + | Care Subscription Agent Name | Role | Phone | [...] | | | | | malfunction, | [address] | [address] | | | | | initial | [address] [place] | [place], | | | | | encounter | [place], [place] | [place] [address] | | | | | ([facility]) | [address] | Phone: | | | | | | Phone: | [phone] | | | | | | [phone] | Fax: | | | | | | Fax: | [phone] | | | | | | [phone] | | +--------+ + + + + [...] fistula | MD [address] | [address] | | | | | malfunction, | [address] [place] | [place], | | | | | initial | [address] [place] | [place] [address] | | | | | encounter | [place], [place] | Phone: | | | | | ([facility]) | [address] | [phone] | | | | | Procedures | Phone: | Fax: | | | | | IR Procedure | [phone] | [phone] | | | | | [address] | Fax: | | | | | | NEEDLE/CATH | [phone] | | | | | | A-V [...] NEPHROLOGY [address] | MD [address] | malfunction, initial | | | | [address] | [address] [place] | encounter (HCC) | | | | [place], [place] | [place] [address] | (Primary Dx) | | | | [address] | [phone] | | | | | [phone] | | | +--------+ + + + [...] PSTdocumented in this encounter Plan of Treatment + +---------+--------+ + + | Name | [...] | 03/07/2015 | | | | | ([facility]) | | + +---------+--------+ + + + [...] | Dialysis AV fistula malfunction, initial encounter (HCC) - Primary | + + documented in this encounter"
--- OUTSIDE RECORDS SUMMARY | ~2019-07-14 | XMS | Encounter Summary ---
Demographics + + + | Address | [address] | | | [place] [address] | + + + | Home Phone [...] | | | | | [place] [address] | | + + + + + | Thania Mallory | ECON | [address] | | | | | [place] [address] | | + + + + + | Deidra Weldon | ECON | [address] | | | | | [place] | | | | | [address] | | + + + + + Care Team Providers + +------+ + | Care Airframe And Power Plant Mechanic Name | Role | Phone | [...] | | | [address] | [address] | | | | | [address] [place], | [place], [place] | | | | | [place] [address] | [address] | | | | | [phone] | [phone] | | | | | | | [...] Denise | | | | | | [place], [place] | | | | | | [address] | | | | | | [phone] | | | | | | | | +--------+ + + + + documented as of this encounter Visit Diagnoses Not on filedocumented in this encounter"
--- OUTSIDE RECORDS SUMMARY | ~2019-07-14 | XMS | Encounter Summary ---
Demographics + + + | Address | [address] | | | [place] [address] | + + + | Home Phone [...] + + + | Author | [facility] | | | and Josephana | + + + | Organization | [facility] | | | and [...] Providers + +------+ + | Care Airfield Manager Name | Role | Phone | [...] [place] | | | | | [place] | [place] [address] | | | | | [address] | [phone] | | | | | [phone] | | | +--------+ + + + [...] 0.39 m/s | | | MV Dec Steele: 9.46 m/s2 MV DecT: 106.01 ms MV E Shahid: 1.00 | | | m/s MV E/A Ratio: 2.54 E/E' Sept: 23.82 E' Lat: 0.08 m/s | | | E' Sept: 0.04 m/s RAP: 15 mmHg RV S': 0.11 m/s RVSP: | | | 67.64 mmHg TR maxP.64 mmHg TR Vmax: 3.61 m/s | | | Outside Machinist Helper: Authenticated by: René Noonan MD Report Date/Time: | | | -- 53_[id number]:15:25 | | + + + + + | Procedure Note | + + | Sonido Steele Conversion - 10/25/2018 1:43 PM PDT Patient Name: Anders WELDON of | | : 1995 Performing Physician: René Noonan | | MD INDICATIONS S | | evere Dyspnea, ESRD, [...] (A-L): 31.60 | | ml/m2LAAs A2C: 18.56 [id number] A-L A2C: 58.49 mlLAESV MOD A2C: 54.57 mlLALs A2C: | | 5.00 cmLAAs A4C: 17.96 [id number] A-L A4C: 52.99 mlLAESV MOD A4C: 44.93 mlLALs A4C: | | 5.18 cmLAESV(MOD BP): 49.83 mlRAAs: 18.33 [id number] A-L: 57.01 mlRAESV MOD: | | 56.24 mlRALs: 5.02 cmTAPSE: 1.98 cmAV Env.Ti: 227.35 msAV maxP.22 mmHgAV | | meanP.25 mmHgAV Vmax: 1.59 m/Elizabeth Vmean: 1.06 m/Elizabeth VTI: 24.30 cmAVA Vmax: | | 2.68 cm2AVA (VTI): 2.73 eb0DOLD Vmax: 0.00 cm2/m2AVAI (VTI): 0.00 cm2/m2LVOT | | Env.Ti: 210.72 msLVOT maxP.99 mmHgLVOT meanP.87 mmHgLVSI Dopp: 37.17 | | ml/m2LVSV Dopp: 66.54 mlLVOT Vmax: 1.41 m/sLVOT Vmean: 1.03 m/sLVOT VTI: 21.88 | | cmMV A Shahid: 0.39 m/sMV Dec Steele: 9.46 m/s2MV DecT: 106.01 msMV E Shahid: 1.00 | | m/sMV E/A Ratio: 2.54E/E' Sept: 23.82E' Lat: 0.08 m/sE' Sept: 0.04 m/sRAP: 15 | | mmHgRV S': 0.11 m/sRVSP: 67.64 mmHgTR maxP.64 mmHgTR Vmax: 3.61 m/s | | Outside Machinist Helper:Authenticated by: René Palacios Date/Time: -48_[id number]_02:15:25 | | IMPRESSION: 1. Overall left ventricular [...] A Shahid: 0.39 m/s | |MV Dec Steele: 9.46 m/s2 | |MV DecT: 106.01 ms | |MV E Shahid: 1.00 m/s | |MV E/A Ratio: 2.54 | |E/E' Sept: 23.82 | |E' Lat: 0.08 m/s | |E' Sept: 0.04 m/s | |RAP: 15 mmHg | |RV S': 0.11 m/s | |RVSP: 67.64 mmHg | |TR maxP.64 mmHg | |TR Vmax: 3.61 m/s | | | |Outside Machinist Helper: | |Authenticated by: René Noonan MD | |Report Date/Time: -- 30_[id number]_52:15:25 | | | |IMPRESSION: | |1. Overall [...]
--- OUTSIDE RECORDS SUMMARY | ~2019-07-14 | XMS | Encounter Summary ---
Demographics + + + | Address | [address] | | | [place] [address] | + + + | Home Phone [...] | | | | | [place] [address] | | + + + + + | Thania Mallory | ECON | [address] | | | | | [place] [address] | | + + + + + | Deidra Weldon | ECON | [address] | | | | | [place] | | | | | [address] | | + + + + + Care Team Providers + +------+ + | Care Shipfitter Apprentice Name | Role | Phone | [...] Denise | | | | | | [place], [place] | | | | | | [address] | | | | | | [phone] | | | | | | | | +--------+ + + + + documented as of this encounter Visit Diagnoses Not on filedocumented in this encounter"
--- OUTSIDE RECORDS SUMMARY | ~2019-07-14 | XMS | Encounter Summary ---
[...] | | | | | [place] [address] | | + + + + + | Thania Mallory | ECON | [address] | | | | | [place] [address] | | + + + + + | Deidra Weldon | ECON | [address] | | | | | [place] | | | | | [address] | | + + + + + Care Team Providers + +------+ + | Care Cost Engineer Name | Role | Phone | [...] | [address] | [place], | | | | | [place], | [place] [address] | | | | | [place] [address] | | | | | | [phone] | | | +--------+ + + + [...] Denise | | | | | | [place] | | | | | | [address] | | | | | | [phone] | | | | | | | | +--------+ + + + + documented as of this encounter Visit Diagnoses Not on filedocumented in this encounter"
--- OUTSIDE RECORDS SUMMARY | ~2019-07-14 | XMS | Encounter Summary ---
Demographics + + + | Address | [address] | | | [place] [address] | + + + | Home Phone [...] | Author | [facility] | | | and Josephana | + + + | Organization | [facility] | | | and [...] Providers + +------+ + | Care Supervisor Blood Name | Role | Phone | + +------+ + PCP | Unavailable | + +------+ + Encounter Details +--------+ + + + + | Date | Type | Department | Care Team | Description | +--------+ + + + + | 08/15/ | Documentati | [facility] | Jorje Camp | | | 2015 | on | NEPHROLOGY [address] | M, DO [address] | | | | | [address] | [place] | | | | | [place], [place] | [place], [place] | | | | | [address] | [address] | | | | | [phone] | | | +--------+ + + + [...] this encounter Progress Notes Marilyn Palumbo - 08/15/2014 9:43 AM PDTManually faxed IR tunneled catheter removal repor t to [facility] on 08/15/14. documented in this encounter Plan of Treatment Not on filedocumented as of this encounter Visit Diagnoses Not on filedocumented in this encounter"
--- OUTSIDE RECORDS SUMMARY | ~2019-07-14 | XMS | Encounter Summary ---
Demographics + + + | Address | [address] | | | [place] [address] | + + + | Home Phone [...] | Author | [facility] | | | and Josephana | + + + | Organization | [facility] | | | and Josephana [...] Providers + +------+ + | Care Vp Security Name | Role | Phone | + [...] NEPHROLOGY [address] | M, DO [address] [place] | | | | | [address] | [place] | | | | | [place], [place] | [place], [place] | | | | | [address] | [address] | | | | | [phone] | | | +--------+ + + + [...] manually faxed to Wayne Adkins on 10/03/13. Jorje chandler DO - 10/01/2013 4:56 PM [...] for the 08/26/13 encounter (Documentation) with Kimberly Camp, DO Medication Sig Dispense Refill cholecalciferol [...] through the Nephrology Se ction at either [facility] or [facility]? 6. Anemia--will continue the EPO at current [...]
--- OUTSIDE RECORDS SUMMARY | ~2019-07-14 | XMS | Encounter Summary ---
Demographics + + + | Address | [address] | | | [place] [address] | + + + | Home Phone [...] | Author | [facility] | | | and Josephana | + + + | Organization | [facility] | [...] + + | 03/07/ | Hospital | [facility] | Rik iSmon MD | Complication of AV | | 2015 | Encounter | [facility] | [address] | dialysis fistula, | | | | [address]PER[address] | [place], [place] | initial encounter | | | | [address] | [address] | ([facility]) | | | | [place], [place] | [phone] | | | | | [address] | | | | | | [phone] | | | +--------+ + + + [...] preparation was performed | | | by [place], [facility], [address] | | | [place] [address] (Diesel Service Technician: Daniel Larson M.D.; | | | [facility]#: [id number]). Diagnostician: Anahy Da Silva MD Pathologist | [...] | EXTERNAL | | | | [facility] | | LAB | | | | [address];[place] [address] | | | | + + + + + + | Antibody | NEGATIVE | | EXTERNAL | | | Screen | | | LAB | | + + + + + + | Antibody | Testing performed at | | EXTERNAL | | | Screen | [facility] | | LAB | | | | [address];[place] [address] | | | | + + + + + + | BB BAND | [id number] | | EXTERNAL | | | | | | LAB | | + + + + + + | BB BAND | Testing performed at | | EXTERNAL | | | | [facility] | | LAB | | | | [address];[place] [address] | | | | + + + [...] (500), | | | | | | make up editor ROBERT BOOKER (8) | | | | | | on 03/07/2014 6:28:09 PM | | | | + + + + + + + + | Specimen | + + | | + + + + + | Narrative | Performed At | + + + | Historically converted procedure from [facility] environment | EXTERNAL LAB | | Lul Carrillo MD 03/08/2014 2:32 AM [facility] | | | [place] [facility] 4:10 PM History [...] | | | a half ago in [place]. She is still using a right subclavian [...] | | Provider folic acid-vitamin b complex-vitamin y-oshbgiao-rszk | | | (DIALYVITE) 3 MG TABS [...] Negative for chest pain, | | | lxonnjuao-fm-btitec, or cough GI: Negative for abdominal pain, [...] Date/Time Complete Metabolic | | | Panel [[id number]] (Abnormal) Collected: 03/07/14 1625 Order | | | Status: Completed Updated: 03/07/14 1710 Specimen | | | Information: Blood SODIUM [...] LT 20 YEARS. | | | PTT [[id number]] Collected: 03/07/141624 Order Status: | | | Completed Updated: 03/07/14 170 Specimen Information: | | | Blood APTT 29 23 - 32 seconds CBC w Auto Diff [[id number]] | | | (Abnormal) Collected: 03/07/141624 Order Status: | | | Completed Updated: 03/07/14 165 Specimen Information: | | | Blood WBC [...] | Rik Simon MD In 2 weeks [address] [facility] [address] | | | [phone] Discharge Medications: Discharge Medication | | | [...] PM | | | Performed by: LUL CARRILLO Authorized by: LUL CARRILLO Interpreted by ED | | | physician Rhythm: sinus rhythm Rate: normal BPM: 83 QRS axis: | | | normal Conduction: conduction normal ST Segments: ST segments normal | | | T Waves: T waves normal Clinical impression: normal ECG | | | Attending Note: Documentation assistance provided by Marilee | | | Finesse (Scribe). Information recorded by the scribe has been | | | reviewed and validated by me. I agree with its contents. Lul | | | Dottie Carrillo MD | | + + + + [...] | | | Patient | performed at [facility];[address] | | LAB | | | | [address];[place] | | | | | | [address] | | | | + + + [...] EXTERNAL | | | | performed at [facility];[address] | | LAB | | | | [address];[place] | | | | | | [address] | | | | + + + + + + | Red Blood | 3.70Comment: Testing | 3.70 - 5.10 | EXTERNAL | | | Cells | performed at [facility];[address] | M/uL | LAB | | | Counted | [address];[place] | | | | | | [address] | | | | + + + + + + | Hemoglobin | 12.9Comment: Testing | 11.3 - 15.5 | EXTERNAL | | | | performed at [facility];[address] | g/dL | LAB | | | | [address];[place] | | | | | | [address] | | | | + + + + + + | Hematocrit, | 38.9Comment: Testing | 34.0 - 46.0 % | EXTERNAL | | | POC | performed at [facility];[address] | | LAB | | | | [address];[place] | | | | | | [address] | | | | + + + + + + | MCV | 105.2 (H)Comment: | 80.0 - 100.0 fl | EXTERNAL | | | | Testing performed at | | LAB | | | | [facility];[address] | | | | [address];[place] [address] | | | | + + + + + + | MCH | 35.0 (H)Comment: Testing | 27.0 - 34.0 pg | EXTERNAL | | | | performed at [facility];[address] | | LAB | | | | [address];[place] | | | | | | [address] | | | | + + + + + + | MCHC | 33.3Comment: Testing | 32.0 - 35.5 | EXTERNAL | | | | performed at [facility];[address] | g/dL | LAB | | | | [address];[place] | | | | | | [address] | | | | + + + + + + | RDW-CV | 51.6Comment: Testing | 37 - 53 fl | EXTERNAL | | | | performed at [facility];[address] | | LAB | | | | [address];[place] | | | | | | [address] | | | | + + + + + + | Platelet | 175Comment: Testing | 150 - 400 K/uL | EXTERNAL | | | Count | performed at [facility];[address] | | LAB | | | Plasma | [address];[place] | | | | | | [address] | | | | + + + + + + | MPV | 8.9Comment: Testing | fl | EXTERNAL | | | | performed at [facility];[address] | | LAB | | | | [address];[place] | | | | | | [address] | | | | + + + + + + | Differentia | AUTOMATEDComment: | | EXTERNAL | | | l Type | Testing performed at | | LAB | | | | [facility];[address] | [address];[place] [address] | | | | + + + + + + | % Segmented | 71.7Comment: Testing | % | EXTERNAL | | | | performed at [facility];[address] | | LAB | | | Neutrophils | [address];[place] | | | | | | [address] | | | | + + + + + + | % | 19.5Comment: Testing | % | EXTERNAL | | | Lymphocytes | performed at [facility];[address] | | LAB | | | | [address];[place] | | | | | | [address] | | | | + + + + + + | % Monocytes | 6.7Comment: Testing | % | EXTERNAL | | | | performed at [facility];[address] | | LAB | | | | [address];[place] | | | | | | [address] | | | | + + + + + + | % | 1.6Comment: Testing | % | EXTERNAL | | | Eosinophils | performed at [facility];[address] | | LAB | | | | [address];[place] | | | | | | [address] | | | | + + + + + + | % Basophils | 0.5Comment: Testing | % | EXTERNAL | | | | performed at [facility];[address] | | LAB | | | | [address];[place] | | | | | | [address] | | | | + + + + + + | Absolute | 5.6Comment: Testing | 1.9 - 7.4 K/uL | EXTERNAL | | | Segmented | performed at [facility];[address] | | LAB | | | Neutrophils | [address];[place] | | | | | | [address] | | | | + + + + + + | Absolute | 1.5Comment: Testing | 1.0 - 3.9 K/uL | EXTERNAL | | | Lymphocytes | performed at [facility];[address] | | LAB | | | | [address];[place] | | | | | | [address] | | | | + + + + + + | Absolute | 0.5Comment: Testing | 0 - 0.8 K/uL | EXTERNAL | | | Monocytes | performed at [facility];[address] | | LAB | | | | [address];[place] | | | | | | [address] | | | | + + + + + + | Absolute | 0.1Comment: Testing | 0 - 0.5 K/uL | EXTERNAL | | | Eosinophils | performed at [facility];[address] | | LAB | | | | [address];[place] | | | | | | [address] | | | | + + + + + + | Absolute | 0.0Comment: Testing | 0 - 0.1 K/uL | EXTERNAL | | | Basophils | performed at [facility];[address] | | LAB | | | | [address];[place] | | | | | | [address] | | | | + + + [...] EXTERNAL | | | | performed at [facility];[address] | mmol/L | LAB | | | | [address];[place] | | | | | | [address] | | | | + + + + + + | K | 3.9Comment: Testing | 3.5 - 4.9 | EXTERNAL | | | | performed at [facility];[address] | mmol/L | LAB | | | | [address];[place] | | | | | | [address] | | | | + + + + + + | Cl | 103Comment: Testing | 99 - 109 mmol/L | EXTERNAL | | | | performed at [facility];[address] | | LAB | | | | [address];[place] | | | | | | [address] | | | | + + + + + + | CO2 | 26Comment: Testing | 23 - 32 mmol/L | EXTERNAL | | | | performed at [facility];[address] | | LAB | | | | [address];[place] | | | | | | [address] | | | | + + + + + + | Anion Gap | 12Comment: Testing | 5 - 20 mmol/L | EXTERNAL | | | | performed at [facility];[address] | | LAB | | | | [address];[place] | | | | | | [address] | | | | + + + + + + | Glucose, | 78Comment: Testing | 65 - 99 mg/dL | EXTERNAL | | | Fasting | performed at [facility];[address] | | LAB | | | | [address];[place] | | | | | | [address] | | | | + + + + + + | BUN | 12Comment: Testing | 8 - 25 mg/dL | EXTERNAL | | | | performed at [facility];[address] | | LAB | | | | [address];[place] | | | | | | [address] | | | | + + + + + + | Creatinine | 3.51 (H)Comment: Testing | 0.50 - 1.00 | EXTERNAL | | | | performed at [facility];[address] | mg/dL | LAB | | | | [address];[place] | | | | | | [address] | | | | + + + + + + | BUN/Creatin | 4Comment: Testing | | EXTERNAL | | | ine Ratio | performed at [facility];[address] | | LAB | | | | [address];[place] | | | | | | [address] | | | | + + + + + + | Calcium | 9.6Comment: Testing | 8.5 - 10.2 | EXTERNAL | | | | performed at [facility];888 | mg/dL | LAB | | | | [address];[place] | | | | | | [address] | | | | + + + + + + | Protein, | 8.1Comment: Testing | 6.3 - 8.2 g/dL | EXTERNAL | | | Total | performed at [facility];[address] | | LAB | | | | [address];[place] | | | | | | [address] | | | | + + + + + + | Albumin | 3.7Comment: Testing | 3.6 - 5.0 g/dL | EXTERNAL | | | | performed at [facility];[address] | | LAB | | | | [address];[place] | | | | | | [address] | | | | + + + + + + | Globulin | 4.3Comment: Testing | 1.3 - 4.9 g/dL | EXTERNAL | | | | performed at [facility];[address] | | LAB | | | | [address];[place] | | | | | | [address] | | | | + + + + + + | A/G Ratio | 0.9 (L)Comment: Testing | 1.0 - 2.4 | EXTERNAL | | | | performed at [facility];[address] | | LAB | | | | [address];[place] | | | | | | [address] | | | | + + + + + + | Bilirubin | 0.4Comment: Testing | 0.1 - 1.5 mg/dL | EXTERNAL | | | Total | performed at [facility];[address] | | LAB | | | | [address];[place] | | | | | | [address] | | | | + + + + + + | ALP, | 121 (H)Comment: Testing | 35 - 115 U/L | EXTERNAL | | | External | performed at [facility];[address] | | LAB | | | | [address];[place] | | | | | | [address] | | | | + + + + + + | AST | 20Comment: Testing | 10 - 45 U/L | EXTERNAL | | | | performed at [facility];[address] | | LAB | | | | [address];[place] | | | | | | [address] | | | | + + + + + + | ALT | 38Comment: Testing | 10 - 65 U/L | EXTERNAL | | | | performed at [facility];[address] | | LAB | | | | [address];[place] | | | | | | [address] | | | | + + + + + + | Estimated | CALCULATION NOT | mL/min/1.73m2 | EXTERNAL | | | GFR | PERFORMED. RESULT NOT | | LAB | | | | VALID IF AGE LT 20 | | | | | | YEARS.Comment: Testing | | | | | | performed at [facility];[address] | | | | | | [address];[place] | | | | | | [address] | | | | + + + [...]
--- OUTSIDE RECORDS SUMMARY | ~2019-07-14 | XMS | Encounter Summary ---
Demographics + + + | Address | [address] | | | [place] [address] | + + + | Home Phone [...] + | Author | [facility] | | | and Josephana | + + + | Organization | [facility] | [...] Team Providers + +------+ + | Care Meat Stock Clerk Name | Role | Phone | [...] | NEPHROLOGY [address] | renal disease) ([facility]) | | | | [address] | [address] [place] | (Primary Dx); | | | | [place], [place] | [place] [address] | Secondary | | | | [address] | [phone] | hyperparathyroidism | | | | [phone] | | ([facility]); | | | | | | Hyperphosphatemia [...]
--- OUTSIDE RECORDS SUMMARY | ~2019-07-14 | XMS | Encounter Summary ---
Demographics + + + | Address | [address] | | | [place] [address] | + + + | Home Phone [...] Author | [facility] | | | and Josephana | + + + | Organization | [facility] | | | and Josephana [...] Team Providers + +------+ + | Care Drier Helper Name | Role | Phone | [...] | | | | [address] | [place], [place] | [place], [place] | | | | | stage renal | [address] | [address] Phone: | | | | | disease | Phone: | [phone] | | | | | ([facility]) | [phone] | Fax: | | | | | Infection | Fax: | [phone] | | | | | and | [phone] | | | | | | inflammatory | | | | | | | reaction | | | | | | | due to | | | | | | | peritoneal | | | | | | | dialysis | | | | | | | catheter | | | | | | | Procedures | | | | | | | [place] OFFICE | | | | | | | OUTPATIENT | | | | | | | VISIT 25 | | | | | | | MINUTES | | | +--------+--------+ + + + + Encounter Details +--------+ + + + + | Date | Type | Department | Care Team | Description | +--------+ + + + + | 12/30/ | Off-Site | [facility] [place] | Jorje Camp | ESRD (end stage | | 2014 | Visit | NEPHROLOGY [address] | M, DO [address] | renal disease) ([facility]) | | | | [address] | [place] | (Primary Dx); | | | | [place], [place] | [place], [place] | Anemia in ESRD | | | | [address] | [address] | (end-stage renal | | | | [phone] | | disease) ([facility]) | +--------+ + + + [...] + + + | Blood Pressure | 140/83 | 12/30/2013 1:01 PM | | | | | PDT | | + + + + + | Pulse | - | - | | + + + + + | Temperature | 37.1 C (98.7 F) | 12/30/2013 1:01 PM | | | | | PDT [...] encounter Progress Notes Jorje Camp DO - 12/31/2013 5:57 PM PDT Subjective: DIALYSIS NOTE Patient ID: Dara Weldon is a 18 y.o. female. 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 She also has anemia secondary to CKD, SHPTH, centripetal obesity, and is active and living independently with her parents. She states that she is working very closely with [facility] for 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 She states that he is a zero mismatch, but is being screened for Hypertens ion. Outpatient Prescriptions Marked as Taking for the 12/30/13 encounter (Off-Site Visit) with Jorje Camp DO Medication Sig Dispense Refill cholecalciferol (VITAMIN D-3) 1,000 units tablet Take 1,000 Units by mouth Daily. cinacalcet (SENSIPAR) 30 mg tablet Take 30 mg by mouth Daily. Epoetin Andres (EPOGEN IJ) 2,200 Units by [...] 2 tablets with snacks No Known Allergies Objective: BP 140/83 | Temp 37.1 C (98.7 F) EDW 92.5 kg Physical Exam Heart: Regular rate and rhythm with no S3, S4, murmur or rub. Lungs: CTA bilaterally. No rales or wheezes. Abdomen: Soft, obese, nontender, normoactive bowel sounds. Extremities: No clubbing, cyanosis, or edema. LAB: BUN 42, Cr 8.5, K+ 4.6, HCO3 20, Ca++ 9.2, PO4 3.8, PTH 211, Alb 3.9, Hb 11.7, eKT/V = 1.60. Assessment: 1. ESRD--he appears well dialyzed by the most recent KT/V. She is open to placement of a permanent AVF, in the eventuality that her txp date is delayed. Her adequacy appears stable. 2. Hypertension--good control from review of her tx records. 3. SHPTH--her PTH appears stable with phosphorus restriction alone. I encourage Dara jay at she appears to be doing a good job with her low phosphorus diet. 4. Nutrition-- her appetite is excellent to date. 5. Transplantation--I think that she is mature and appropriate for her age, and would make an excellent candidate from her visits here at [facility]. 6. Anemia--Will need to hold the EPO until the Hb is < 11.0 g/dl, while rechecking the Hb weekly. Plan: 1. Will continue to follow her PTH quarterly without Hectorol Rx. 2. Hold the EPO as above, until the Hb is < 11.0 g/dl. 3. Will try to connect with her Transplant Nursing Care Partner at [facility], about re lative timeline of her allograft date. 4. She will follow with Dr. Ibarra in 2 weeks. CC: Delray Fina Joy MD, [facility], [facility] documented in thi s encounter Plan [...]
--- OUTSIDE RECORDS SUMMARY | ~2019-07-14 | XMS | Encounter Summary ---
Demographics + + + | Address | [address] | | | [place] [address] | + + + | Home Phone [...] | | | | | [place] [address] | | + + + + + | Thania Mallory | ECON | [address] | | | | | [place] [address] | | + + + + + | Deidra Weldon | ECON | [address] | | | | | [place] | | | | | [address] | | + + + + + Care Team Providers + +------+ + | Care Cigarette Vendor Name | Role | Phone | [...] | | | [address] | [facility] | | | | | [place], | [place], [place] | | | | | [place] [address] | [address] | | | | | [phone] | | | +--------+ + + + [...] Denise | | | | | | [place] | | | | | | [address] | | | | | | [phone] | | | | | | | | +--------+ + + + + documented as of this encounter Visit Diagnoses Not on filedocumented in this encounter"
--- OUTSIDE RECORDS SUMMARY | ~2019-07-14 | XMS | Encounter Summary ---
Demographics + + + | Address | [address] | | [...] | | | | | [place] [address] | | + + + + + | Thania Mallory | ECON | [address] | | | | | [place] [address] | | + + + + + | Deidra Weldon | ECON | [address] | | | | | [place] | | | | | [address] | | + + + + + Care Team Providers + +------+ + | Care Physician Credentialing Specialist Name | Role | Phone | [...] Shun | | | | | [address] [facility] | [facility] | | | | | [facility], | [place], [place] | | | | | [place] [address] | [address] | | | | | [phone] | | | +--------+ + + + [...] [place] | | | | | | [address] | | | | | | [phone] | | | | | | | | +--------+ + + + + documented as of this encounter Visit Diagnoses Not on filedocumented in this encounter"
--- OUTSIDE RECORDS SUMMARY | ~2019-07-14 | XMS | Encounter Summary ---
[...] + + | Author | [facility] | | | and [place] | + + + | Organization | [facility] | [...] Team Providers + +------+ + | Care Tent Assembler Name | Role | Phone | + +------+ + PCP | Unavailable | + +------+ + Encounter Details +--------+ + + + + | Date | Type | Department | Care Team | Description | +--------+ + + + + | 07/10/ | Hospital | [facility] | Sudhakar Joy | | | 2009 | Encounter | JOY | MD Emanuel [address] | | | | | [address]PART[address] | [facility] | | | | | [address] | [place], [place] | | | | | [place], [place] | [address] | | | | | [address] | [phone] | | | | | [phone] | | | +--------+ + + + [...]
--- OUTSIDE RECORDS SUMMARY | ~2019-07-14 | XMS | Encounter Summary ---
Demographics + + + | Address | [address] | | | [place] [address] | + + + | Home Phone [...] | Author | [facility] | | | and [place] | + + + | Organization | [facility] [...] | | + + +---------+ + | Suandra Marlowjonatan | ECON | Unknown | | + + +---------+ + Care Team Providers + +------+ + | Care Field Representatives Director Name | Role | Phone | [...] NEPHROLOGY [address] | MD [address] | | | | | [address] | [address] [place] | | | | | [place], [place] | [place] [address] | | | | | [address] | [phone] | | | | | [phone] | | | +--------+ + + + [...]
--- OUTSIDE RECORDS SUMMARY | ~2019-07-14 | XMS | Encounter Summary ---
Demographics + + + | Address | [address] | | | [place] [address] | + + + | Home Phone [...] | Author | [facility] | | | and [place] | + + + | Organization | [facility] [...] Team Providers + +------+ + | Care Pantograph Operator Name | Role | Phone | [...] Dx); Panic disorder | | | | [place], [place] | | | | | | [address] | | | | | | [phone] | | | +--------+ + + + [...]
--- OUTSIDE RECORDS SUMMARY | ~2019-07-14 | XMS | Encounter Summary ---
Demographics + + + | Address | [address] | | | [place] [address] | + + + | Home Phone [...] | Author | [facility] | | | and [place] | + + + | Organization | [facility] | [...] Team Providers + +------+ + | Care Pharmacist In Charge Name | Role | Phone [...] | | KIDNEY TRANSPLANT | [address] [place], | | | | | [address] [place] | [place] [address] | | | | | [address] [place] | [phone] | | | | | [address] | | | | | | [phone] | | | +--------+ + + + [...] documented as of this encounter Progress Notes Roro Myles - 07/03/2018 3:12 PM PDTReferral We received [...] I also called the Fina Sparrow social media marketing manager, and let her know t hat Dara can be re-referred after she has her marijuana medicinal card. Electronically sig carlos by Roro Myles at 07/03/2018 3:17 PM PDTdocumented in this encounter Plan of Treatment Not on filedocumented as of this encounter Visit Diagnoses Not on filedocumented in this encounter"
--- OUTSIDE RECORDS SUMMARY | ~2019-07-14 | XMS | Encounter Summary ---
Demographics + + + | Address | [address] | | | [place] [address] | + + + | Home Phone [...] + | Author | [facility] | | | and [place] | + + + | Organization | [facility] | | [...] Team Providers + +------+ + | Care Anesthesia Director Name | Role | Phone | [...] NEPHROLOGY [address] | M, DO [address] | | | | | [address] | [place], [address] | | | | | [place], [place] | [place], [place] | | | | | [address] | [address] | | | | | [phone] | | | +--------+ + + + [...]
--- OUTSIDE RECORDS SUMMARY | ~2019-07-14 | XMS | Encounter Summary ---
Demographics + + + | Address | [address] | | | [place] [address] | + + + | Home Phone [...] | | | | | [place] [address] | | + + + + + | Thania Mallory | ECON | [address] | | | | | [place] [address] | | + + + + + | Deidra Weldon | ECON | [address] | | | | | [place] | | | | | [address] | | + + + + + Care Team Providers + +------+ + | Care Length Control Tester Name | Role | Phone | + +------+ + | Shahid Camargo MD | PCP | | + +------+ + Encounter Details +--------+ + + + + | Date | Type | Department | Care Team | Description | +--------+ + + + + | 12/19/ | Document-Sc | UNKNOWN DEPARTMENT | Unknown . | | | 2012 | anned | [address] [facility] [address] [facility] | | | | | | [facility] | | | | | | [place], [place] | | | | | | [address] | | | +--------+ + + + [...] [place] | | | | | | [address] | | | | | | [phone] | | | | | | | | +--------+ + + + + documented as of this encounter Visit Diagnoses Not on filedocumented in this encounter"
--- OUTSIDE RECORDS SUMMARY | ~2019-07-14 | XMS | Encounter Summary ---
Demographics + + + | Address | [address] | | | [place] [address] | + + + | Home Phone [...] | Author | [facility] | | | and Josephana | + + + | Organization | [facility] | [...] Providers + +------+ + | Care Head Of Precision Targeting Name | Role | Phone | + +------+ + PCP | Unavailable | + +------+ + Encounter Details +--------+ + + + + | Date | Type | Department | Care Team | Description | +--------+ + + + + | 07/09/ | Hospital | [facility] | Colten Hutchins MD | AV fistula | | 2017 | Encounter | [facility] | [address] | thrombosis, initial | | | | CLINICAL DECISION | [place], [place] | encounter ([facility]) | | | | [address] | [address] | | | | | [place], [place] | | | | | | [address] | | | | | | [phone] | | | +--------+ + + + [...] | Blood Pressure | 144/93 | 07/09/2016 6:27 PM | | | | | PDT | | + + + + + | Pulse | 66 | 07/09/2016 6:27 PM | | | | | PDT | | + + + + + | Temperature | 36.4 C (97.5 F) | 07/09/2016 6:27 PM | | | | | PDT | | + + + + + | Respiratory Rate | 16 | 07/09/2016 6:27 PM | | | | | PDT | | + + + + + | Oxygen Saturation | - | - | | + + + + + | Inhaled Oxygen | - | - | | | Concentration | | | | + + + + + | Weight | 96.9 kg (213 lb 10.1 | 07/09/2016 6:27 PM | | | | oz) | PDT | | + + + + + | Height | - | - | | + + + + + | Body Mass Index | 34.48 | 09/01/2015 10:00 AM | | | [...] puffs into | 1 | 11 | 10/02/19 | | | mcg/puff inhaler | the lungs every 6 | Inhaler | | 16 | 7 | | | hours as needed for [...] tablet by | 90 | 3 | 03/15/19 | | | (SENSIPAR) 90 MG | mouth Daily (with | tablet | | 17 | 7 | | tablet | dinner). [...] norethindrone | Take 1 tablet by | | 0 | | | | (MICRONOR) 0.35 MG | mouth Daily. | | | | 7 | | tablet | | | | | | + + + +---------+ + + | 27-0.8 mg | Take 1 tablet by | | 0 | | | | multivitamin tablet | mouth Daily. | | | | 7 | + + + +---------+ + + | sevelamer | Take 4 tablets by | 630 | 4 | 10/02/19 | | | carbonate (RENVELA) | mouth with meals and | tablet | | 16 | 7 | | 800 mg tablet | 3 tablets with | | | | | | | snacks | | | | | + + + +---------+ + + documented as of this encounter Progress Notes Conversion Transaction, Provider Unknown - 07/09/2016 6:21 PM PDTFormatting of this note m ight be different from the original. Nurse Progress Note by Catherine Lenz RN at 07/09/161820 Author: Catherine Lenz RN Service: (none) Author Type: Registered Nurse Filed: 07/09/161821 Date of Service: 07/09/161820 Status: Signed Tape Deck Installer: Catherine Lenz, RN (Registered Nurse) Patient stable at time of discharge. Final dose of IV Solu-Medrol given, tolerated well. Fi nhung CDI, thrill felt on palpation, no bleeding or hematoma noted. Patient and mom educated on monitoring fistula and to call provider with any questions or concerns. IV dc'd, bandage applied. Discharged to private vehicle. docume nted in this encounter Plan of Treatment Not on filedocumented as of this encounter Procedures + +--------+ + + + | Procedure Name | Priori | Date/Time | Associated Diagnosis | Comments | | | ty | | | | + +--------+ + + + | IR THROMBECTOMY | Routin | 07/09/2016 | | Results for this | | VENOUS PRIMARY | e | 4:05 PM | | procedure are in the | | VESSEL | | PDT | | results section. | + +--------+ + + + | IR INJECTION | Routin | 07/09/2016 | | Results for this | | DIALYSIS CIRCUIT W | e | 4:05 PM | | procedure are in the | | ANGIOPLASTY | | PDT | | results section. | + +--------+ + + + | US GUIDED VASCULAR | Routin | 07/09/2016 | | Results for this | | ACCESS | e | 4:01 PM | | procedure are in the | | | | PDT | | results section. | + +--------+ + + + | EXTERNAL LAB: CBC | Routin | 07/09/2016 | | Results for this | | | e | 1:16 PM | | procedure are in the | | | | PDT | | results section. | + +--------+ + + + | PTT | Routin | 07/09/2016 | | Results for this | | | e | 1:16 PM | | procedure are in the | | | | PDT | | results section. | + +--------+ + + + | PROTIME INR | Routin | 07/09/2016 | | Results for this | | | e | 1:16 PM | | procedure are in the | | | | PDT | | results section. | + +--------+ + + + | BASIC METABOLIC | Routin | 07/09/2016 | | Results for this | | PANEL | e | 1:16 PM | | procedure are in the | | | | PDT | | results section. | + +--------+ + + + documented in this encounter Results IR Inj Dialysis Circuit w Angioplasty (07/09/2016 4:05 PM PDT) + + | Specimen | + + | | + + + + + | Impressions | Performed At | + + + | Successful yarsanism of flow within the left brachiocephalic | | | fistula with thrombolysis, rheolytic thrombectomy and drug coated | | | balloon angioplasty of the recurrent perianastomotic cephalic stenosis | | | status post prior stent placement. PLAN: Return to dialysis. | | | Recommend routine fistulagram in 4-6 months to maintain access. | | | | | + + + + + + | Narrative | Performed At | + + + | IR AV FISTULAGRAM IMAGING WITH ANGIOPLASTY dated 07/09/2016 4:05 PM | | | PRIMARY INTERVENTIONAL RADIOLOGIST: Colten Hutchins MD, PhD | | | PROCEDURES PERFORMED: 1. Left upper extremity limited venous | | | ultrasound for diagnostic purposes. 2. Left upper extremity | | | ultrasound-guided antegrade venous access. 3. Left upper extremity | | | ultrasound-guided retrograde venous access, second stick required 4. | | | Left upper extremity fistula chemical thrombolysis of the cephalic | | | venous outflow 5. Left upper extremity fistula rheolytic thrombectomy | | | of the cephalic venous outflow 6. Left upper extremity fistula drug | | | coated balloon angioplasty of the cephalic venous outflow CLINICAL | | | DATA: Thrombosed left brachiocephalic fistula with history of | | | recurrent perianastomotic venous stenosis status post 6 mm x 4 cm | | | self-expanding stent placement. COMPARISON STUDIES: Multiple | | | including most recently 09/01/2015 CONSENT: The risks, alternatives | | | and benefits of the procedure were discussed with the patient. | | | Signed and verbal consent were given as witnessed by nursing staff. | | | SEDATION: 6 mg Versed, 25 mg Phenergan, 50 mg Benadryl and 225 mcg | | | fentanyl were administered during physician and nursing monitored | | | conscious sedation for a total time of approximately 62 minutes. | | | Additional medications: Alteplase 4 mg IV, Solu-Medrol 125 mg IV, | | | nitroglycerin 200 mcg intra-arterial CONTRAST: None. | | | FLUOROSCOPY TIME: 4.4 minutes, air kerma 40 mGy PROCEDURE: Patient | | | was sterilely prepped and draped about the left arm. Grayscale and | | | color ultrasound for first use to evaluate the fistula, images saved | | | into PACS. Sites were selected for both antegrade and retrograde | | | access of the cephalic vein to allow for intervention. The skin was | | | locally anesthetized with 1% lidocaine. Real-time ultrasound guided | | | antegrade micropuncture access followed by real-time ultrasound guided | | | retrograde access was obtained in the cephalic vein. Through the | | | retrograde access, 2 mg of alteplase were instilled into the | | | thrombosis followed by 2 mg of alteplase through the antegrade access. | | | The microaccesses were exchanged to 6 Ethiopian sheaths. Patient was | | | heparinized. Via the retrograde access, an angled glide wire and | | | catheter were advanced through the perianastomotic cephalic venous | | | stent into the proximal brachial artery and fistulogram was performed | | | confirming thrombosis. A Solent AngioJet rheolytic thrombectomy | | | catheter was then deployed both antegrade and retrograde stopping | | | short of the peripheral aspect of the stent. Once thrombus was cleared | | | from the majority of the fistula, the AngioJet catheter was deployed | | | at the peripheral aspect of the stent. Fistulogram via brachial artery | | | was obtained demonstrating reestablishment of flow but recurrent | | | in-stent cephalic venous restenosis. Therefore, a 6 mm x 4 cm proton | | | extruded coated balloon was inflated for a total of 3 minutes at 10 | | | rommel to treat the in-stent restenosis. Follow-up fistulogram via | | | brachial artery demonstrated resolution of in stent restenosis. There | | | is a small filling defect central to this event in a varicose area. | | | This was examined by ultrasound and was mechanically macerated by hand | | | under ultrasound. The fistulogram was then completed to the central | | | vasculature which showed no other lesions requiring treatment. The | | | wires and catheters were then removed. The sheaths were removed while | | | deploying 3-0 Vicryl pursestring sutures and manual compression with | | | immediate hemostasis. COMPLICATIONS: None immediate. EBL: | | | Trace. FINDINGS: Grayscale and color ultrasound demonstrated | | | abrupt cessation of flow at the origin of the cephalic venous stent. | | | The arteriovenous anastomosis is patent. Distal to the stent, the | | | venous outflow is mildly varicose. No other stenoses are noted by | | | ultrasound. Via brachial artery, fistulogram demonstrates abrupt | | | cessation of flow just beyond the arteriovenous anastomosis at the | | | stent. Intraprocedural fistulogram was demonstrated yarsanism of | | | flow but severe recurrent in-stent restenosis at the perianastomotic | | | cephalic vein. Following drug coated balloon angioplasty, the | | | in-stent restenosis appears resolved. There is a small filling defect | | | in the varicose portion of the cephalic vein just central to the stent | | | which was macerated by hand under ultrasound guidance. Previously | | | angioplastied mid cephalic stenosis remains widely patent. The central | | | veins are widely patent. | | + + + + + | Procedure Note | + + | Cedric, Rad Conversion - 10/18/2018 2:13 AM PDT IR AV FISTULAGRAM IMAGING WITH | | ANGIOPLASTY dated 07/09/2016 4:05 PM PRIMARY INTERVENTIONAL RADIOLOGIST: Colten Hutchins, | | , PhD PROCEDURES PERFORMED:1. Left upper extremity limited venous ultrasound for | | diagnostic purposes.2. Left upper extremity ultrasound-guided antegrade venous access.3. | | Left upper extremity ultrasound-guided retrograde venous access, second stick | | required4. Left upper extremity fistula chemical thrombolysis of the cephalic venous | | outflow5. Left upper extremity fistula rheolytic thrombectomy of the cephalic venous | | outflow6. Left upper extremity fistula drug coated balloon angioplasty of the cephalic | | venous outflow CLINICAL DATA: Thrombosed left brachiocephalic fistula with history of | | recurrent perianastomotic venous stenosis status post 6 mm x 4 cm self-expanding stent | | placement. COMPARISON STUDIES: Multiple including most recently 09/01/2015 CONSENT: The | | risks, alternatives and benefits of the procedure werediscussed with the patient. Signed | | and verbal consent were given aswitnessed by nursing staff. SEDATION: 6 mg Versed, 25 | | mg Phenergan, 50 mg Benadryl and 225 mcg fentanyl were administered during physician and | | nursing monitored conscious sedation for a total time of approximately 62 minutes. | | Additional medications: Alteplase 4 mg IV, Solu-Medrol 125 mg IV, nitroglycerin 200 mcg | | intra-arterial CONTRAST: None. FLUOROSCOPY TIME: 4.4 minutes, air kerma 40 mGy | | PROCEDURE: Patient was sterilely prepped and draped about the left arm. Grayscale and | | color ultrasound for first use to evaluate the fistula, images saved into PACS. Sites | | were selected for both antegrade and retrograde access of the cephalic vein to allow for | | intervention. The skin was locally anesthetized with 1% lidocaine. Real-time ultrasound | | guided antegrade micropuncture access followed by real-time ultrasound guided | | retrograde access was obtained in the cephalic vein. Through the retrograde access, 2 mg | | of alteplase were instilled into the thrombosis followed by 2 mg of alteplase through | | the antegrade access. The microaccesses were exchanged to 6 Ethiopian sheaths. Patient was | | heparinized. Via the retrograde access, an angled glide wire and catheter were advanced | | through the perianastomotic cephalic venous stent into the proximal brachial artery and | | fistulogram was performed confirming thrombosis. A Solent AngioJet rheolytic | | thrombectomy catheter was then deployed both antegrade and retrograde stopping short of | | the peripheral aspect of the stent. Once thrombus was cleared from the majority of the | | fistula, the AngioJet catheter was deployed at the peripheral aspect of the stent. | | Fistulogram via brachial artery was obtained demonstrating reestablishment of flow but | | recurrent in-stent cephalic venous restenosis. Therefore, a 6 mm x 4 cm proton extruded | | coated balloon was inflated for a total of 3 minutes at 10 rommel to treat the in-stent | | restenosis. Follow-up fistulogram via brachial artery demonstrated resolution of in | | stent restenosis. There is a small filling defect central to this event in a varicose | | area. This was examined by ultrasound and was mechanically macerated by hand under | | ultrasound. The fistulogram was then completed to the central vasculature which showed | | no other lesions requiring treatment. The wires and catheters were then removed. The | | sheaths were removed while deploying 3-0 Vicryl pursestring sutures and manual | | compression with immediate hemostasis. COMPLICATIONS: None immediate. EBL: Trace. | | FINDINGS: Grayscale and color ultrasound demonstrated abrupt cessation of flow at the | | origin of the cephalic venous stent. The arteriovenous anastomosis is patent. Distal to | | the stent, the venous outflow is mildly varicose. No other stenoses are noted by | | ultrasound. Via brachial artery, fistulogram demonstrates abrupt cessation of flow just | | beyond the arteriovenous anastomosis at the stent. Intraprocedural fistulogram was | | demonstrated yarsanism of flow but severe recurrent in-stent restenosis at the | | perianastomotic cephalic vein. Following drug coated balloon angioplasty, the in-stent | | restenosis appears resolved. There is a small filling defect in the varicose portion of | | the cephalic vein just central to the stent which was macerated by hand under ultrasound | | guidance. Previously angioplastied mid cephalic stenosis remains widely patent. The | | central veins are widely patent. IMPRESSION: Successful yarsanism of flow within the | | left brachiocephalic fistula with thrombolysis, rheolytic thrombectomy and drug coated | | balloon angioplasty of the recurrent perianastomotic cephalic stenosis status post prior | | stent placement. PLAN: Return to dialysis. Recommend routine fistulagram in 4-6 months | | to maintain access. | | | + + IR Thrombectomy Venous Primary Vessel (07/09/2016 4:05 PM PDT) + + | Specimen | + + | | + + + + + | Impressions | Performed At | + + + | Successful yarsanism of flow within the left brachiocephalic | | | fistula with thrombolysis, rheolytic thrombectomy and drug coated | | | balloon angioplasty of the recurrent perianastomotic cephalic stenosis | | | status post prior stent placement. PLAN: Return to dialysis. | | | Recommend routine fistulagram in 4-6 months to maintain access. | | | | | + + + + + + | Narrative | Performed At | + + + | IR AV FISTULAGRAM IMAGING WITH ANGIOPLASTY dated 07/09/2016 4:05 PM | | | PRIMARY INTERVENTIONAL RADIOLOGIST: Colten Hutchins MD, PhD | | | PROCEDURES PERFORMED: 1. Left upper extremity limited venous | | | ultrasound for diagnostic purposes. 2. Left upper extremity | | | ultrasound-guided antegrade venous access. 3. Left upper extremity | | | ultrasound-guided retrograde venous access, second stick required 4. | | | Left upper extremity fistula chemical thrombolysis of the cephalic | | | venous outflow 5. Left upper extremity fistula rheolytic thrombectomy | | | of the cephalic venous outflow 6. Left upper extremity fistula drug | | | coated balloon angioplasty of the cephalic venous outflow CLINICAL | | | DATA: Thrombosed left brachiocephalic fistula with history of | | | recurrent perianastomotic venous stenosis status post 6 mm x 4 cm | | | self-expanding stent placement. COMPARISON STUDIES: Multiple | | | including most recently 09/01/2015 CONSENT: The risks, alternatives | | | and benefits of the procedure were discussed with the patient. | | | Signed and verbal consent were given as witnessed by nursing staff. | | | SEDATION: 6 mg Versed, 25 mg Phenergan, 50 mg Benadryl and 225 mcg | | | fentanyl were administered during physician and nursing monitored | | | conscious sedation for a total time of approximately 62 minutes. | | | Additional medications: Alteplase 4 mg IV, Solu-Medrol 125 mg IV, | | | nitroglycerin 200 mcg intra-arterial CONTRAST: None. | | | FLUOROSCOPY TIME: 4.4 minutes, air kerma 40 mGy PROCEDURE: Patient | | | was sterilely prepped and draped about the left arm. Grayscale and | | | color ultrasound for first use to evaluate the fistula, images saved | | | into PACS. Sites were selected for both antegrade and retrograde | | | access of the cephalic vein to allow for intervention. The skin was | | | locally anesthetized with 1% lidocaine. Real-time ultrasound guided | | | antegrade micropuncture access followed by real-time ultrasound guided | | | retrograde access was obtained in the cephalic vein. Through the | | | retrograde access, 2 mg of alteplase were instilled into the | | | thrombosis followed by 2 mg of alteplase through the antegrade access. | | | The microaccesses were exchanged to 6 Ethiopian sheaths. Patient was | | | heparinized. Via the retrograde access, an angled glide wire and | | | catheter were advanced through the perianastomotic cephalic venous | | | stent into the proximal brachial artery and fistulogram was performed | | | confirming thrombosis. A Solent AngioJet rheolytic thrombectomy | | | catheter was then deployed both antegrade and retrograde stopping | | | short of the peripheral aspect of the stent. Once thrombus was cleared | | | from the majority of the fistula, the AngioJet catheter was deployed | | | at the peripheral aspect of the stent. Fistulogram via brachial artery | | | was obtained demonstrating reestablishment of flow but recurrent | | | in-stent cephalic venous restenosis. Therefore, a 6 mm x 4 cm proton | | | extruded coated balloon was inflated for a total of 3 minutes at 10 | | | rommel to treat the in-stent restenosis. Follow-up fistulogram via | | | brachial artery demonstrated resolution of in stent restenosis. There | | | is a small filling defect central to this event in a varicose area. | | | This was examined by ultrasound and was mechanically macerated by hand | | | under ultrasound. The fistulogram was then completed to the central | | | vasculature which showed no other lesions requiring treatment. The | | | wires and catheters were then removed. The sheaths were removed while | | | deploying 3-0 Vicryl pursestring sutures and manual compression with | | | immediate hemostasis. COMPLICATIONS: None immediate. EBL: | | | Trace. FINDINGS: Grayscale and color ultrasound demonstrated | | | abrupt cessation of flow at the origin of the cephalic venous stent. | | | The arteriovenous anastomosis is patent. Distal to the stent, the | | | venous outflow is mildly varicose. No other stenoses are noted by | | | ultrasound. Via brachial artery, fistulogram demonstrates abrupt | | | cessation of flow just beyond the arteriovenous anastomosis at the | | | stent. Intraprocedural fistulogram was demonstrated yarsanism of | | | flow but severe recurrent in-stent restenosis at the perianastomotic | | | cephalic vein. Following drug coated balloon angioplasty, the | | | in-stent restenosis appears resolved. There is a small filling defect | | | in the varicose portion of the cephalic vein just central to the stent | | | which was macerated by hand under ultrasound guidance. Previously | | | angioplastied mid cephalic stenosis remains widely patent. The central | | | veins are widely patent. | | + + + + + | Procedure Note | + + | Cedric, Rad Conversion - 10/18/2018 2:13 AM PDT IR AV FISTULAGRAM IMAGING WITH | | ANGIOPLASTY dated 07/09/2016 4:05 PM PRIMARY INTERVENTIONAL RADIOLOGIST: Colten Hutchins, | | , PhD PROCEDURES PERFORMED:1. Left upper extremity limited venous ultrasound for | | diagnostic purposes.2. Left upper extremity ultrasound-guided antegrade venous access.3. | | Left upper extremity ultrasound-guided retrograde venous access, second stick | | required4. Left upper extremity fistula chemical thrombolysis of the cephalic venous | | outflow5. Left upper extremity fistula rheolytic thrombectomy of the cephalic venous | | outflow6. Left upper extremity fistula drug coated balloon angioplasty of the cephalic | | venous outflow CLINICAL DATA: Thrombosed left brachiocephalic fistula with history of | | recurrent perianastomotic venous stenosis status post 6 mm x 4 cm self-expanding stent | | placement. COMPARISON STUDIES: Multiple including most recently 09/01/2015 CONSENT: The | | risks, alternatives and benefits of the procedure werediscussed with the patient. Signed | | and verbal consent were given aswitnessed by nursing staff. SEDATION: 6 mg Versed, 25 | | mg Phenergan, 50 mg Benadryl and 225 mcg fentanyl were administered during physician and | | nursing monitored conscious sedation for a total time of approximately 62 minutes. | | Additional medications: Alteplase 4 mg IV, Solu-Medrol 125 mg IV, nitroglycerin 200 mcg | | intra-arterial CONTRAST: None. FLUOROSCOPY TIME: 4.4 minutes, air kerma 40 mGy | | PROCEDURE: Patient was sterilely prepped and draped about the left arm. Grayscale and | | color ultrasound for first use to evaluate the fistula, images saved into PACS. Sites | | were selected for both antegrade and retrograde access of the cephalic vein to allow for | | intervention. The skin was locally anesthetized with 1% lidocaine. Real-time ultrasound | | guided antegrade micropuncture access followed by real-time ultrasound guided | | retrograde access was obtained in the cephalic vein. Through the retrograde access, 2 mg | | of alteplase were instilled into the thrombosis followed by 2 mg of alteplase through | | the antegrade access. The microaccesses were exchanged to 6 Ethiopian sheaths. Patient was | | heparinized. Via the retrograde access, an angled glide wire and catheter were advanced | | through the perianastomotic cephalic venous stent into the proximal brachial artery and | | fistulogram was performed confirming thrombosis. A Solent AngioJet rheolytic | | thrombectomy catheter was then deployed both antegrade and retrograde stopping short of | | the peripheral aspect of the stent. Once thrombus was cleared from the majority of the | | fistula, the AngioJet catheter was deployed at the peripheral aspect of the stent. | | Fistulogram via brachial artery was obtained demonstrating reestablishment of flow but | | recurrent in-stent cephalic venous restenosis. Therefore, a 6 mm x 4 cm proton extruded | | coated balloon was inflated for a total of 3 minutes at 10 rommel to treat the in-stent | | restenosis. Follow-up fistulogram via brachial artery demonstrated resolution of in | | stent restenosis. There is a small filling defect central to this event in a varicose | | area. This was examined by ultrasound and was mechanically macerated by hand under | | ultrasound. The fistulogram was then completed to the central vasculature which showed | | no other lesions requiring treatment. The wires and catheters were then removed. The | | sheaths were removed while deploying 3-0 Vicryl pursestring sutures and manual | | compression with immediate hemostasis. COMPLICATIONS: None immediate. EBL: Trace. | | FINDINGS: Grayscale and color ultrasound demonstrated abrupt cessation of flow at the | | origin of the cephalic venous stent. The arteriovenous anastomosis is patent. Distal to | | the stent, the venous outflow is mildly varicose. No other stenoses are noted by | | ultrasound. Via brachial artery, fistulogram demonstrates abrupt cessation of flow just | | beyond the arteriovenous anastomosis at the stent. Intraprocedural fistulogram was | | demonstrated yarsanism of flow but severe recurrent in-stent restenosis at the | | perianastomotic cephalic vein. Following drug coated balloon angioplasty, the in-stent | | restenosis appears resolved. There is a small filling defect in the varicose portion of | | the cephalic vein just central to the stent which was macerated by hand under ultrasound | | guidance. Previously angioplastied mid cephalic stenosis remains widely patent. The | | central veins are widely patent. IMPRESSION: Successful yarsanism of flow within the | | left brachiocephalic fistula with thrombolysis, rheolytic thrombectomy and drug coated | | balloon angioplasty of the recurrent perianastomotic cephalic stenosis status post prior | | stent placement. PLAN: Return to dialysis. Recommend routine fistulagram in 4-6 months | | to maintain access. | | | + + US Guided Vascular Access (07/09/2016 4:01 PM PDT) + + | Specimen | [...] + | Sonido Steele Conversion - 10/18/2018 2:13 AM PDT This Point of Care (POC) ultrasound | | image has been reviewed andinterpreted by the physician identified as the performing | | physician in theassociated interpretation and report. | | | + + PTT (07/09/2016 1:16 PM PDT) + + + + + + | Component | Value | Ref Range | Performed | Pathologist | | | | | At | Signature | + + + + + + | aPTT, | 19 (L)Comment: Testing | 23 - 32 seconds | EXTERNAL | | | Patient | performed at [facility];[address] | | LAB | | | | Rashaun Oropeza;[place], [place] | | | | | | [address] | | | | + + + + + + + + | Specimen | + + | Blood specimen | | (specimen) | + + + +---------+ + + | Performing | Address | City/State/Zipcode | Phone Number | | Organization | | | | + +---------+ + + | EXTERNAL LAB | | | | + +---------+ + + Protime INR (07/09/2016 1:16 PM PDT) + + + + + [...] [facility];[address] | | | | | | Rashaun Caputo;[place], [place] | | | | | | [address] | | | | + + + [...] + +---------+ + + External Lab: CBC (07/09/2016 1:16 PM PDT) + + + + + + | Component | Value | Ref Range | Performed | Pathologist | | | | | At | Signature | + + + + + + | WBC | 8.70 | 3.80 - 11.00 | EXTERNAL | | | | | K/uL | LAB | | + + + + + + | Red Blood | 3.77 | 3.70 - 5.10 | EXTERNAL | | | Cells | | M/uL | LAB | | | Counted | | | | | + + + + + + | Hemoglobin | 14.2 | 11.3 - 15.5 | EXTERNAL | | | | | g/dL | LAB | | + + + + + + | Hematocrit, | 40.9 | 34.0 - 46.0 % | EXTERNAL | | | POC | | | LAB | | + + + + + + | MCV | 108.5 (H) | 80.0 - 100.0 fl | EXTERNAL | | | | | | LAB | | + + + + + + | MCH | 37.8 (H) | 27.0 - 34.0 pg | EXTERNAL | | | | | | LAB | | + + + + + + | MCHC | 34.8 | 32.0 - 35.5 | EXTERNAL | | | | | g/dL | LAB | | + + + + + + | RDW-CV | 58.6 (H) | 37 - 53 fl | EXTERNAL | | | | | | LAB | | + + + + + + | Platelet | 159 | 150 - 400 K/uL | EXTERNAL | | | Count | | | LAB | | | Plasma | | | | | + + + + + + | MPV | 9.5 | fl | EXTERNAL | | | | | | LAB | | + + + + + + | Differentia | AUTOMATED | | EXTERNAL | | | l Type | | | LAB | | + + + + + + | % Segmented | 64.46 | % | EXTERNAL | | | | | | LAB | | | Neutrophils | | | | | + + + + + + | % | 26.39 | % | EXTERNAL | | | Lymphocytes | | | LAB | | + + + + + + | % Monocytes | 4.78 | % | EXTERNAL | | | | | | LAB | | + + + + + + | % | 3.37 | % | EXTERNAL | | | Eosinophils | | | LAB | | + + + + + + | % Basophils | 1.00 | % | EXTERNAL | | | | | | LAB | | + + + + + + | Absolute | 5.61 | 1.90 - 7.40 | EXTERNAL | | | Segmented | | K/uL | LAB | | | Neutrophils | | | | | + + + + + + | Absolute | 2.30 | 1.00 - 3.90 | EXTERNAL | | | Lymphocytes | | K/uL | LAB | | + + + + + + | Absolute | 0.42 | 0.00 - 0.80 | EXTERNAL | | | Monocytes | | K/uL | LAB | | + + + + + + | Absolute | 0.29 | 0.00 - 0.50 | EXTERNAL | | | Eosinophils | | K/uL | LAB | | + + + + + + | Absolute | 0.09 | 0.00 - 0.10 | EXTERNAL | | | Basophils | | K/uL | LAB | | + + + + + + | RBC | RBC AND PLT MORPHOLOGY | | EXTERNAL | | | Morphology | APPEAR NORMAL | | LAB | | + + + + + + | Platelet | ADEQUATEComment: Testing | | EXTERNAL | | | Estimate | performed at [facility] | | LAB | | | | Rashaun Oropeza;[place], [place] | | | | | | [address] | | | | + + + [...] + +---------+ + + Basic Metabolic Panel (07/09/2016 1:16 PM PDT) + + + + + + | Component | Value | Ref Range | Performed | Pathologist | | | | | At | Signature | + + + + + + | Na | 135 | 135 - 145 | EXTERNAL | | | | | mmol/L | LAB | | + + + + + + | K | 4.9Comment: SLT | 3.5 - 4.9 | EXTERNAL | | | | HEMOLYSIS | mmol/L | LAB | | + + + + + + | Cl | 99 | 99 - 109 mmol/L | EXTERNAL | | | | | | LAB | | + + + + + + | CO2 | 24 | 23 - 32 mmol/L | EXTERNAL [...] + + + + | Creatinine | 7.9 (H) | 0.50 - 1.00 | EXTERNAL | | | | | mg/dL | LAB | | + + + + + + | BUN/Creatin | 4 | | EXTERNAL | | | ine Ratio | | | LAB | | + + + + + + | Calcium | 10.0 | 8.5 - 10.5 | EXTERNAL | [...] BY | | | | | | 1.210.Testing performed | | | | | | at [facility];[address] [place] [address] | | | | | | [facility];[place] [address] | | | | + + + [...] + | Diagnosis | + + | AV fistula thrombosis, initial encounter (HCC) | + + documented in this encounter"
--- OUTSIDE RECORDS SUMMARY | ~2019-07-14 | XMS | Encounter Summary ---
Demographics + + + | Address | [address] | | | [place] [address] | + + + | Home Phone | | + + + | Preferred Language | Unknown | + + + | Marital Status | Single | + + + | Bahai Affiliation | Unknown | + + + | Race | Unknown | + + + | Ethnic Group | Unknown | + + + Author + + + | Author | [facility] | | | and [place]ana | + + + | Organization | [facility] | | | and [...] Team Providers + +------+ + | Care Independent Contractor Name | Role | Phone | [...] | | | | | | | [place] | | | | | | | [...] + + | 02/24/ | Hospital | [facility] | Blake Chavarria | ESRD (end stage | | 2013 | Encounter | MED CTR OR INTRA OP | MD Antonieta, FACS [address] | renal disease) ([facility]) | | | | [address] | [facility] | (Primary Dx) | | | | [place] | [place] [address] | | | | | [address] | [phone] | | | | | [phone] | | | +--------+ + + + [...] might be different f rom the original. [facility] POST-OP INSTRUCTIONS: Arterio-Venous Fistula 1. Keep [...] may interact with prescription medicines or other stup-ynd-lujoahm (OTC) drugs. The FDA recommends reading OTC medication labels careful ly to clearly understand the list of active ingredients, directions, and any precautions to help avoid taking too muchacetaminophen. If you have questions, ask your pharmacist or [facility] care provider. Managing Nausea Some people [...] or skin changes (rash, itching, or hives). 9108-2695 [employer]. [address] [place] [address], [place] [address]. All righ ts reserved. This information is [...] [facility] | | | | | | [facility] | | | | | | [...] mL/min/1.73m2 | [facility] | | | ALGERIAN | (<18). | | MEDICAL | | [...] | | ine Ratio | | | [facility] | | [...] | [address] | [place], [place] | [phone] | | [facility] | | [address] | | | - LABORATORY | | | | + + + + + | [address] | [address] | [place], [place] | | | [facility] | | [address], [facility] | | | - LABORATORY [...] AM PST | | | | | 12/22/14 at 0645, TKO. Use | | | [...]
--- OUTSIDE RECORDS SUMMARY | ~2019-07-14 | XMS | Encounter Summary ---
Demographics + + + | Address | [address] | | | [place] [address] | + + + | Home Phone [...] | | | | | [place] [address] | | + + + + + | Thania Mallory | ECON | [address] | | | | | [place] [address] | | + + + + + | Deidra Wedlon | ECON | [address] | | | | | [place] | | | | | [address] | | + + + + + Care Team Providers + +------+ + | Care Clean In Places Operator Name | Role | Phone | [...] | | | | | [place], | | | | | | [place] [address] | | | +--------+ + + + [...] Denise | | | | | | [place], [place] | | | | | | [address] | | | | | | [phone] | | | | | | | [...] [facility] - | [address], | [place] [address] | | | IMMUNOGENETICS/TRANS | [address] | | | | PLANT LABORATORY | | | | + + + + + documented in this encounter Visit Diagnoses Not on filedocumented in this encounter"
--- OUTSIDE RECORDS SUMMARY | ~2019-07-14 | XMS | Encounter Summary ---
Demographics + + + | Address | [address] | | | [place] [address] | + + + | Home Phone [...] + + + | Author | and [facility] | | | and [place]ana | + + + | Organization | and [facility] | [...] Providers + +------+ + | Care Property Controller Name | Role | Phone | [...] [address] [place] | [place] [address] | | | | | [address] [place] [address] | [phone] | | | | | [address] | | | | | | [phone] | | | +--------+ + + + [...]
--- OUTSIDE RECORDS SUMMARY | ~2019-07-14 | XMS | Encounter Summary ---
Demographics + + + | Address | [address] | | | [place] [address] | + + + | Home Phone [...] | | | | | [place] [address] | | + + + + + | Thania Mallory | ECON | [address] | | | | | [place] [address] | | + + + + + | Deidra Weldon | ECON | [address] | | | | | [place] | | | | | [address] | | + + + + + Care Team Providers + +------+ + | Care Field Clinical Engineer Name | Role | Phone | [...] ANNALISA Griffin | [facility] | | | | | [address] [place], | [place], [place] | | | | | [place] [address] | [address] | | | | | [phone] | | | +--------+ + + + [...] Denise | | | | | | [place] | | | | | | [address] | | | | | | [phone] | | | | | | | | +--------+ + + + + documented as of this encounter Visit Diagnoses Not on filedocumented in this encounter"
--- OUTSIDE RECORDS SUMMARY | ~2019-07-14 | XMS | Encounter Summary ---
Demographics + + + | Address | [address] | | | [place] [address] | + + + | Home Phone [...] + | Author | [facility] | | | and [place]ana | + + + | Organization | [facility] | | | and Josephana [...] Team Providers + +------+ + | Care Metallurgy Laboratory Technician Name | Role | Phone | [...] | | | | kidney | [address]un [address]ifif[address] | [place] | | | | | disease([address] | [address] [place] | | | | | [address]) End | [place], [place] | [place], [place] | | | | | stage renal | [address] | [address] Phone: | | | | | disease | Phone: | [phone] | | | | | ([facility]) | [phone] | Fax: | | | | | Infection | Fax: | [phone] | | | | | and | [phone] | | | | | | inflammatory | | | | | | | reaction | | | | | | | due to | | | | | | | peritoneal | | | | | | | dialysis | | | | | | | catheter | | | | | | | Procedures | | | | | | | [place] OFFICE | | | | | | [...] [address] | renal disease) ([facility]) | | | | [address] | [place], [address] | (Primary Dx); | | | | [place], [place] | [place], [place] | Anemia in ESRD | | | | [address] | [address] | (end-stage renal | | | | [phone] | | disease) ([facility]) | +--------+ + + + + [...] CC: Jamil Joy MD, Renal Transplant Clinic, [facility] Blake Chavarria MD, FACS documented in thi s encounter Plan of Treatment Not on filedocumented as of this encounter Visit Diagnoses + + | Diagnosis | + + | ESRD (end stage renal disease) ([facility]) - Primary End stage renal disease | + + | Anemia in ESRD (end-stage renal disease) ([facility]) Anemia in chronic kidney disease | + + documented in this encounter"
--- OUTSIDE RECORDS SUMMARY | ~2019-07-14 | XMS | Encounter Summary ---
Demographics + + + | Address | [address] | | | [place] [address] | + + + | Home Phone [...] | [facility] | | | and [place]ana | + + + | Organization | [facility] | | [...] Providers + +------+ + | Care Instrument Lens Grinder Apprentice Name | Role | Phone | [...] NEPHROLOGY [address] | MD [address] | (Asymptomatic) | | | | [address] | [address] [place] | | | | | [place], [place] | [place] [address] | | | | | [address] | [phone] | | | | | [phone] | | | +--------+ + + + [...] AM PDTHEMO progress note manually faxed to [facility] [place], e-faxed to Lianna [facility]AV[facility] Pediatric Nephrology on 08/04 03/19. Daniela Marquez M D - 07/29/2013 1:57 PM PDT Comprehensive Dialysis Monthly Note Date of visit: 07/29/2013 Dialysis Clinic: [facility] Mode of dialysis: Hemodialysis Dialysis prescription: MWF, [...] Date Noted ESRD (end stage renal disease) ([facility]) Priority: High Note Last Updated: 07/29/2013 Due [...] at age 10[address] Joy, certification engineer. Anemia in ESRD (end-stage renal disease) (HCC) [...] donor. Pt has been referred t o [facility]. 9. Peritonitis, MSSA. On Keflex. [facility] [place] [facility] [place] [facility] Lianna Joy, [facility] Pediatric Nephrology documented in this [...]
--- OUTSIDE RECORDS SUMMARY | ~2019-07-14 | XMS | Encounter Summary ---
Demographics + + + | Address | [address] | | | [place] [address] | + + + | Home Phone [...] | | | | | [place] [address] | | + + + + + | Thania Mallory | ECON | [address] | | | | | [place] [address] | | + + + + + | Deidra Weldon | ECON | [address] | | | | | [place] | | | | | [address] | | + + + + + Care Team Providers + +------+ + | Care Data Technical Lead Name | Role | Phone | [...] Elias Elizondo | | | | | ([facility]) | [address] | [address] [place], | | | | | Allergic | [place], [place] | [place] | | | | | purpura | [address] | [address] | | | | | ([facility]) | Phone: | Phone: | | | | | | [phone] | [phone] | | | | | | Fax: | Fax: | | | | | | [phone] | [phone] | +--------+--------+ + + + + Encounter Details +--------+ + + + + | Date | Type | Department | Care Team | Description | +--------+ + + + + | 12/20/ | Hospital | Radiology at [facility] | | | | 2012 | Encounter | [address] | | | | | | [place] | | | | | | [employer], | | | | | | 7th floor | | | | | | [place], [place] | | | | | | [address] | | | | | | [phone] | | | +--------+ + + + [...] | | | | | | [place], [place] | | | | | | [address] | | | | | | [phone] | | | | | | | [...] | + +---------+ + + | [facility] DEPARTMENT OF | | | | | RADIOLOGY | | | | + +---------+ + + documented in this encounter Visit Diagnoses + + | Diagnosis | + + | 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
--- OUTSIDE RECORDS SUMMARY | ~2019-07-14 | XMS | Encounter Summary ---
Demographics + + + | Address | [address] | | | [place] [address] | + + + | Home Phone [...] | [facility] | | | and [place]ana | + + + | Organization | [facility] | | | and [place] | + + + | Address | Unknown | + + + | Phone | Unavailable | + + + Support + + +---------+ + | Name | Relationship | Address | Phone | + + +---------+ + | Thania Mallory | ECON | Unknown | | + + +---------+ + | Suandra Mallory | ECON | Unknown | | + + +---------+ + Care Team Providers + +------+ + | Care Candle Cutter Name | Role | Phone | [...] NEPHROLOGY [address] | MD [address] | (Asymptomatic) | | | | [address] | [address] [place] | | | | | [place], [place] | [place] [address] | | | | | [address] | [phone] | | | | | [phone] | | | +--------+ + + + [...] AM PDTHEMO progress note manually faxed to [facility] [place], e-faxed to [facility] Pediatric Nephrology on 08/04 03/19. Daniela Marquez M D - 07/29/2013 1:57 PM PDT Comprehensive Dialysis Monthly Note Date of visit: 07/29/2013 Dialysis Clinic: [facility] Mode of dialysis: Hemodialysis Dialysis [...] Date Noted ESRD (end stage renal disease) ([facility]) Priority: High Note Last Updated: 07/29/2013 Due [...] age 10[address] Joy, pediatric registered nurse. Anemia in ESRD (end-stage renal disease) [...] donor. Pt has been referred t o [facility]. 9. Peritonitis, MSSA. On Keflex. [facility] [place] [address] Lianna Joy, [facility] Pediatric Nephrology documented in this encounter Plan [...]
--- OUTSIDE RECORDS SUMMARY | ~2019-07-14 | XMS | Encounter Summary ---
Demographics + + + | Address | [address] | | | [place] [address] | + + + | Home Phone [...] | | | | | [place] [address] | | + + + + + | Thania Mallory | ECON | [address] | | | | | [place] [address] | | + + + + + | Deidra Weldon | ECON | [address] | | | | | [place] | | | | | [address] | | + + + + + Care Team Providers + +------+ + | Care Evp Global Multimedia Sales Name | Role | Phone | [...] Nephrology | | Jonathan Gallagher, | Tx [facility] [address] | | | | | | [address] | Param Iraheta | | | | | | Keven | [place] | | | | | | [facility] | Children's | | | | | | [address] | [address] | | | | | | [address] | floor | | | | | | [place], | [place], [place] | | | | | | [place] | [address] | | | | | | [address] | Phone: | | | | | | Phone: | [phone] | | | | | | [phone] | | | | | | | Fax: | | | | | | | [phone] | | +--------+--------+ + + + + Encounter Details +--------+---------+ + + + | Date | Type | Department | Care Team | Description | +--------+---------+ + + + | 05/11/ | Office | Specialty Clinics | Sudhakar Joy | [facility] | | 2016 | Visit | at [facility] [address] | DMD [address] | (David | | | | [address] | [address] | purpura) nephritis | | | | [place] | [place], [place] | (Primary Dx); Anemia | | | | [facility], | [address] | of chronic kidney | | | | 7th floor | [phone] | failure, stage 5 | | | | [place], [place] | | ([facility]) | | | | [address] | | | | | | [phone] | | | +--------+---------+ + + + [...] MD Pediatric Nephrology and [facility]pertension Services [address] Mail code [facility]P [place], [place] [address] Estrella Brennan MA - 05/12/2015 10:48 AM [...] | | | | | [place], [place] | | | | | | [address] | | | | | | [phone] | | | | | | | [...]
--- OUTSIDE RECORDS SUMMARY | ~2019-07-14 | XMS | Encounter Summary ---
Demographics + + + | Address | [address] | | | [place] [address] | + + + | Home Phone [...] | Author | [facility] | | | and [place]ana | + + + | Organization | [facility] [...] Team Providers + +------+ + | Care Media Developer Name | Role | Phone | [...] | | KIDNEY TRANSPLANT | [address] [place], | | | | | [address] [place] | [place] [address] | | | | | [address] [place], [place] | [phone] | | | | | [address] | | | | | | [phone] | | | +--------+ + + + [...]
--- OUTSIDE RECORDS SUMMARY | ~2019-07-14 | XMS | Encounter Summary ---
Demographics + + + | Address | [address] | | | [place] [address] | + + + | Home Phone [...] | [facility] | | | and [place]ana | + + + | Organization | [facility] | [...] Team Providers + +------+ + | Care Rand Maker Name | Role | Phone | [...] | | | DEPARTMENT [address] [place], | | | | [address] | [place] [address] | | | | | [place], [place] | [phone] | | | | | [address] | | | | | | [phone] | | | +--------+ + + + [...]
--- OUTSIDE RECORDS SUMMARY | ~2019-07-14 | XMS | Encounter Summary ---
Demographics + + + | Address | [address] | | | [place] [address] | + + + | Home Phone [...] Author | [facility] | | | and [place] | + + + | Organization | [facility] | [...] Team Providers + +------+ + | Care Float Operator Name | Role | Phone | [...] | | stage renal | [address] | [address] [place] [address] | | | | | disease) | [address] | [place] | | | | | ([facility]) | [address] | [address] [place] | | | | | Anemia in | [place], [place] | [place] | | | | | ESRD | [address] | [address] Phone: | | | | | (end-stage | Phone: | [phone] | | | | | renal | [phone] | Fax: | | | | | disease) | Fax: | [phone] | | | | | ([facility]) | [phone] | | | | | | Procedures [...] + + | 03/02/ | Off-Site | PM SE [place] | Stroemel, Jorje | Anemia in ESRD | | 2015 | Visit | NEPHROLOGY [address] | M, DO [address] | (end-stage renal | | | | [address] | [place], [address] | disease) ([facility]) | | | | [place], [place] | [place] [facility], [place] | (Primary Dx); ESRD | | | | [address] | [address] | (end stage renal | | | | [phone] | | disease) ([facility] [...] encounter Progress Notes Jorje Camp DO - 03/03/2015 10:58 AM PST Subjective: [...] Hypertension--from review of her treatment data in [facility] EHR, BP appears stable at her current dry [...] Will recheck her iron profile next [facility]. Plan: 1. Again, I counseled [...] Will recheck her in 2 weeks. CC: Clinton Fina Joy MD, Renal Transplant [facility], [facility] signed by Jorje Camp DO at 03/03/2015 11:12 AM PSTdocumented in this encount er Plan of Treatment Not on filedocumented as of this encounter Visit Diagnoses + + | Diagnosis | + + | Anemia in ESRD (end-stage renal disease) ([facility]) - Primary Anemia in chronic kidney | | disease | + + | ESRD (end stage renal disease) ([facility]) End stage renal disease | + + documented in this encounter"
--- OUTSIDE RECORDS SUMMARY | ~2019-07-14 | XMS | Encounter Summary ---
Demographics + + + | Address | [address] | | | [place] [address] | + + + | Home Phone [...] | Author | [facility] | | | and Josephana | + + + | Organization | [facility] | | | and [...] Providers + +------+ + | Care Test Driller Name | Role | Phone | + +------+ + PCP | Unavailable | + +------+ + Encounter Details +--------+ + + + + | Date | Type | Department | Care Team | Description | +--------+ + + + + | 10/30/ | Hospital | [facility] GENERIC IP | Conversion | Pain | | 2015 | Encounter | CONVERSION DEP [address] | Transaction, | | | | | [address] | Provider Unknown | | | | | [place], [place] | [phone] | | | | | [address] | | | | | | [phone] | | | +--------+ + + + [...] tablets by | 630 | 4 | 05/18/20 | | | carbonate (RENVELA) | mouth [...] + +--------+ + + + | US ARTERIAL UPPER | Routin | 10/30/2014 | | Results for this | | EXTREMITY UNILATERAL | e | 10:32 PM | | procedure are in the | | | | PDT | | results section. | + +--------+ + + + documented in this encounter Results US Arterial Upper Extremity Unilateral (10/30/2014 10:32 PM PDT) + + | Specimen | + + | | + + + + + | Narrative | Performed At | + + + | This is a non-reportable procedure without a radiologist report and | | | is used for image storage only | | + + + + + | Procedure Note | + + | Sonido Steele Anderson - 10/19/2018 6:38 AM PDT This is a non-reportable procedure | | without a radiologist report and isused for image storage only | + + documented in this encounter Visit Diagnoses + + | Diagnosis | + + | Pain Generalized pain | + + documented in this encounter"
--- OUTSIDE RECORDS SUMMARY | ~2019-07-14 | XMS | Encounter Summary ---
Demographics + + + | Address | [address] | | | [place] [address] | + + + | Home Phone [...] Author | [facility] | | | and Josephana | + + + | Organization | [facility] [...] Providers + +------+ + | Care Asphalt Heater Operator Name | Role | Phone | [...] | stage renal | [address] | [address] [place] [address] | | | | | disease) | Shun Griffin | [place] | | | | | ([facility]ERLY [facility]) | [address] | [address] | | | | | Anemia in | [place], [place] | [place] | | | | | ESRD | [address] | [address] Phone: | | | | | (end-stage | Phone: | [phone] | | | | | renal | [phone] | Fax: | | | | | disease) | Fax: | [phone] | | | | | (FORMERLY [facility]) | [phone] | | | | | | Procedures | | | | | | | MO OFFICE | | | | | | [...] DO [address] | renal disease) ([facility]LY [facility]) | | | | [address] | [place], [address] | (Primary Dx) | | | | [place], [place] | [place], [place] | | | | | [address] | [address] | | | | | [phone] | | | +--------+ + + + [...] to one missed tx per week. I sebastian akers discussed with Dara, at length, that this [...] the 01/25/16 encounter (Off-Site Visit) with Jorje Camp DO [...] Will recheck her in 2 weeks. : Spring Fina Joy M.D., Pediatric Nephrology, [facility] documented in th is encounter Plan of Treatment Not on filedocumented as of this encounter Visit Diagnoses + + | Diagnosis | + + | ESRD (end stage renal disease) ([facility]) - Primary End stage renal disease | + + documented in this encounter"
--- OUTSIDE RECORDS SUMMARY | ~2019-07-14 | XMS | Encounter Summary ---
Demographics + + + | Address | [address] | | | [place] [address] | + + + | Home Phone [...] | | | | | [place] [address] | | + + + + + | Thania Mallory | ECON | [address] | | | | | [place] [address] | | + + + + + | Deidra Weldon | ECON | [address] | | | | | [place] | | | | | [address] | | + + + + + Care Team Providers + +------+ + | Care Traffic Superintendent Name | Role | Phone | [...] Visit | Services Inpatient | [address] [facility] | disease, stage V | | | | [address] [facility] | [address] | (HCC) (Primary Dx) | | | | [address] | [place], [place] | | | | | [facility] | [address] | | | | | [place], [place] | [phone] | | | | | [address] | | | | | | [phone] | | | +--------+---------+ + + + [...] school. Discussed other ways to remember includin santa setting alarms on cell phone. She took binders religiously this week and her phosphorus i s reflective of that. Last phosphorus per patient was 6.0 and previously it was > 7. Intervention/ Plan: Recommendations: Achieve/maintain dry weight at 215# for BMI 35 Maintain Phos < 5.5 Acceptable for kidney transplant from a nutrition perspective. Argentina Mehta, , RD, GRAVE DIGGER, LD documented in this e ncounter Plan of Treatment +--------+ + + + + | Date | Type | Specialty | Care Team | Description | +--------+ + + + + | 05/04/ | Hospital | Adult Acute Care | El Starr MD | | | 2022 | Encounter | | [address] | | | | | | [place], [place] | | | | | | [address] | | | | | | [phone] | | | | | | | | +--------+ + + + + documented as of this encounter Procedures + +--------+ + + + | Procedure Name | Priori | Date/Time | Associated Diagnosis | Comments | | | ty | | | | + +--------+ + + + | AR MNT INITIAL | Routin | 12/21/2012 | [...]
--- OUTSIDE RECORDS SUMMARY | ~2019-07-14 | XMS | Encounter Summary ---
Demographics + + + | Address | [address] | | | [place] [address] | + + + | Home Phone [...] | | | | | [place] [address] | | + + + + + | Thania Mallory | ECON | [address] | | | | | [place] [address] | | + + + + + | Deidra Weldon | ECON | [address] | | | | | [place] | | | | | [address] | | + + + + + Care Team Providers + +------+ + | Care Hosiery Pairer Name | Role | Phone | + [...] | | | [address] | [place] [address] | | | | | [place], | [place], [place] | | | | | [place] [address] | [address] | | | | | [phone] | [phone] | | | | | | | [...] Denise | | | | | | [place], [place] | | | | | | [address] | | | | | | [phone] | | | | | | | | +--------+ + + + + documented as of this encounter Visit Diagnoses Not on filedocumented in this encounter"
--- OUTSIDE RECORDS SUMMARY | ~2019-07-14 | XMS | Encounter Summary ---
Demographics + + + | Address | [address] | | | [place] [address] | + + + | Home Phone [...] | | | | | [place] [address] | | + + + + + | Thania Mallory | ECON | [address] | | | | | [place] [address] | | + + + + + | Deidra Weldon | ECON | [address] | | | | | [place] | | | | | [address] | | + + + + + Care Team Providers + +------+ + | Care Slackman Name | Role | Phone | + [...] | | | | | [address] [place], | [place], [place] | | | | | [place] [address] | [address] | | | | | [phone] | | | +--------+ + + + [...] | | | | | | [place], [place] | | | | | | [address] | | | | | | [phone] | | | | | | | | +--------+ + + + + documented as of this encounter Visit Diagnoses Not on filedocumented in this encounter"
--- OUTSIDE RECORDS SUMMARY | ~2019-07-14 | XMS | Encounter Summary ---
Demographics + + + | Address | [address] | | | [place] [address] | + + + | Home Phone [...] | | | | | [place] [address] | | + + + + + | Thania Mallory | ECON | [address] | | | | | [place] [address] | | + + + + + | Deidra Weldon | ECON | [address] | | | | | [place] | | | | | [address] | | + + + + + Care Team Providers + +------+ + | Care Diabetes Clinical Manager Name | Role | Phone | [...] | | | [address] | [facility] | | | | | [address] [place], | [place], [place] | | | | | [place] [address] | [address] | | | | | [phone] | | | +--------+ + + + [...] | | | | | | [place], [place] | | | | | | [address] | | | | | | [phone] | | | | | | | | +--------+ + + + + documented as of this encounter Visit Diagnoses + + | Diagnosis | + + | 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
--- OUTSIDE RECORDS SUMMARY | ~2019-07-14 | XMS | Encounter Summary ---
Demographics + + + | Address | [address] | | | [place] [address] | + + + | Home Phone [...] | [facility] | | | and Josephana | + + + | Organization | [facility] | | | and [...] Providers + +------+ + | Care Animal Ride Attendant Name | Role | Phone | [...] NEPHROLOGY [address] | M, DO [address] | | | | | [address] | [place] | | | | | [place], [place] | [place], [place] | | | | | [address] | [address] | | | | | [phone] | | | +--------+ + + + [...] the Nephrology Se ction at either [facility] or [facility]? 6. Anemia--will continue the EPO at current [...]
--- OUTSIDE RECORDS SUMMARY | ~2019-07-14 | XMS | Encounter Summary ---
Demographics + + + | Address | [address] | | | [place] [address] | + + + | Home Phone [...] | Author | [facility] | | | and Josephana | + + + | Organization | [facility] [...] Team Providers + +------+ + | Care Dealer Analyst Name | Role | Phone | [...] Description | +--------+--------+ + + + | 07/12/ | Refill | [facility] | Carolina Mahmood DO | Medication Refill | | 2019 | | CARDIOLOGY JOLO | [address] | | | | | [address] | [place], [place] | | | | | [place], [place] | [address] | | | | | [address] | | | | | | [phone] | | | +--------+--------+ + + + [...]
--- OUTSIDE RECORDS SUMMARY | ~2019-07-14 | XMS | Encounter Summary ---
Demographics + + + | Address | [address] | | | [place] [address] | + + + | Home Phone [...] | | | | | [place] [address] | | + + + + + | Thania Mallory | ECON | [address] | | | | | [place] [address] | | + + + + + | Deidra Weldon | ECON | [address] | | | | | [place] | | | | | [address] | | + + + + + Care Team Providers + +------+ + | Care Faculty Research Physician Name | Role | Phone | + [...] Param Iraheta | | | | | ([facility]) | [address] | Alexander | | | | | Procedures | [address] [place] | Children's | | | | | TRANSTHORACI | [place], [place] | [address] | | | | | C | [address] | Floor | | | | | ECHOCARDIOGR | Phone: | [place], [place] | | | | | AM, PEDS | [phone] | [address] | | | | | | Fax: | Phone: | | | | | | [phone] | [phone] | | | | | | | Fax: | | | | | | | [phone] | +--------+--------+ + + + + Reason [...] | | | [address] | [facility] | | | | | [facility], | [place], [place] | | | | | [place] [address] | [address] | | | | | [phone] | | | +--------+ + + + [...] | Encounter | | [address] | | | | | | [place], [place] | | | | | | [address] | | | | | | [phone] | | | | | | | [...] view image for the detailed interpretation from [employer] results. | CARDIOLOGY | + + + + + | Procedure Note | + + | Interface, Cardiology Results - 12/21/2012 9:38 AM PDT Please click on view image | | for the detailed interpretation from [employer] results. | + + + + + + + | Performing | Address | City/State/Zipcode | Phone Number | | Organization | | | | + + + + + | [facility] | [address] | [place], [place] | | | CARDIOLOGY | [address] | [address] | | + + + + + LIT SRUTHI-B WILEY ZHANG (12/20/2012 10:02 AM PDT) + + | Specimen | + + | Blood - Blood | + + + + + + + | Performing | Address | City/State/Zipcode | Phone Number | | Organization | | | | + + + + + | [facility] - | [address] | [place] [address] | | | IMMUNOGENETICS/TRANS | [address] [...] + | [facility] - | [address] | [place] [address] | | | IMMUNOGENETICS/TRANS | [address] | | | | PLANT LABORATORY | | | | + + + + + LIT HLA-A LOW RES-EVA (12/20/2012 10:02 AM PDT) + + | Specimen | + + | Blood - Blood | + + + + + + + | Performing | Address | City/State/Zipcode | Phone Number | | Organization | | | | + + + + + | [facility] - | [address] | [place], [place] | | | IMMUNOGENETICS/TRANS | [address] [...] - | [address] | [place], [place] | | | IMMUNOGENETICS/TRANS | [address] [...] + + | [facility] | [address] | [place] [address] | | | IMMUNOGENETICS/TRANS | [address] [...] + + | [facility] - | [address] | [place] [address] | | | IMMUNOGENETICS/TRANS | [address] [...] | | + +---------+ + + | [facility] DEPARTMENT OF | | | [...] | | + +---------+ + + | [facility] DEPARTMENT OF | | | [...] [facility] | | | , SERUM | [facility],[address] | | [address] | | | | [address], [facility] | | PTH - INTFC | | | | [address] | | | | | | [phone]. | | | | | | Faisal [...] [facility] | [address] | [place], [place] | | | UNIV PTH - INTFC | | [address] | | + + + + + [...] [facility] | [address] | [place] [address] | | | SERVICES, CORE | PARK [...] [facility] | [address] | [place] [address] | | | SERVICES, CORE | PARK [...] + | [facility] - | [address] | [place] [address] | | | [place] | | | [...] + + + + + + | NON-ZENA | Jennifer (A) | None /hpf | [...] [facility] | [address] | [place] [address] | | | SERVICES, CORE | PARK [...] + + + + + | [facility] | [address] | [place] [address] | | | SERVICES, CORE | LONG [...] + + + + + | [facility] | [address] | [place] [address] | | | SERVICES, CORE | PARK [...] + | [facility] - | [address] | [place] [address] | | | [place] | | | [...] at: | | | | | | http://www.cdc.gov/nchstp/tb/pubs/tbfactssheets/370623.htm | | | Test performed by: [facility] [address] [place] [address] | | + + + + + + + + | Performing | Address | City/State/[facility] | Phone Number | | Organization | | | | + + + + + | [facility] REFERENCE LAB | | | | + [...] | + + + + + | [facility] | [address] | [place] [address] | | | SERVICES, SPECIAL | PARK [...] gene at | DIAGNOSTIC | | nucleotide 53989. Please note that this assay only detects the | LABORATORIES | | [id number] point mutation and therefore a normal result [...] has been analyzed for the presence of O70223S | | | mutation in the prothrombin [...] | | Heterozygotes for the common prothrombin W99684M mutation constitute | | | approximately 2% of the normal white population (1,2). | | | References: 1.) Edwinat et al. Blood 88, 5710-3299 (1995). 2.) Ricardo | | | et al. Circulation 99, 999-1004 (1998). 3.) Al Montalvo, and | | | Chase. Amer J Clin Path 155, 439-47 (2000). This test was | | | developed and its performance characteristics determined by the [facility] | | | [facility]. It has | | | not been cleared or approved by the Food and Drug Administration. | | | FDA approval is not required for clinical use of this test, and | | | therefore validation was done as required under the requirements of | | | the Clinical Laboratory Improvement Act of 1988. The [facility] is a fully | [...] | + + + + + | [facility] | [address] | [place] [address] | | | DIAGNOSTIC | [address] [...] + + + + + | [facility] | [address] | [place] [address] | | | SERVICES, CORE | LONG [...] [facility] | [address] | [place] [address] | | | SERVICES, CORE | PARK [...] [facility] | [address] | [place] [address] | | | SERVICES, CORE | PARK [...] + + + + + | [facility] | [address] | [place] [address] | | | SERVICES, CORE | LONG [...] | | | | | | [place], [facility] [place] [address] | | | | | | [phone]. | | | | | | Faisal [...] [facility] | [address] | [place], [place] | | | UNIV PTH - INTFC | | [address] | | + + + + + [...] | | | LABORATORY | | | RIKY, | | | SPECIAL IMM + | | | COAG | + + + + + + + + | Performing | Address | City/State/Zipcode | Phone Number | | Organization | | | | + + + + + | [facility] | [address] | [place] [address] | | | SERVICES, SPECIAL | LONG [...] + + | Performing | Address | City/State/[facility] | Phone Number | | Organization | | | | + + + + + | [facility] | [phone] | [place] [address] | | | DIAGNOSTIC | [address] [...] + | [facility] - | [address] | [place] [address] | | | [place] | | | [...] + | [facility] - | [address] | [place] [address] | | | [place] | | | | + + + [...] | + + + + + | [facility] - | [address] | [place] [address] | | | [place] | | | [...] + | [facility] - | [address] | [place] [address] | | | [place] | | | | + + + [...] less......Not | | | | | | Whyesqgb45.0-21.9 | | | | | | U/mL.........Indetermina [...] available | | | | | | [email or web address] | | | | | | vdx.Performed by [facility] | | | | | | [facility],[address] | | | | | | [place] [address] | | | | | | [phone].aruplab. | | | | | | [facility], Faisal Carab[place], | | | | [...] [facility] | [address] | [place], [place] | | | UNIV PTH - INTFC | | [address] | | + + + + + [...] | | | Final CULTURE | | [facility] | | | | RESULT:No growth (<1000 [...] + | [facility] - | [address] | [place] [address] | | | [place] | | | [...] + + + + + | [facility] | [address] | [place] [address] | | | SERVICES, [facility] | [address] | [...] by | | | | | | [facility],[address] | | | | | | [address], [facility] | | | | | | [address] | | | | | | [phone].[employer]. | | | | | | Faisal [...] [facility] | [address] | [place], [place] | | | UNIV PTH - INTFC | | [address] | | + + + + + CHOLESTEROL TOTAL, PLASMA (12/20/2012 8:39 AM PDT) + +-------+ + + + | Component | Value | Ref Range | Performed | Pathologist | | | | | At | Signature | + +-------+ + + + | CHOLESTEROL | 195 | <200 mg/dL | [facility] | | | (LAB) | | | [...] | + + + + + | [facility] | [address] | [place] [address] | | | SERVICES, CORE | PARK [...] [facility] | [address] | [place] [address] | | | SERVICES, CORE | PARK [...] 0.7 U/mL | LABORATORY | | | SERVICES, CORE | + + + + + + + + | Performing | Address | City/State/Zipcode | Phone Number | | Organization | | | | + + + + + | [facility] | [address] | [place] [address] | | | [place] | [address] | | | + + + + + TRANSTHORACIC ECHOCARDIOGRAM, PEDEdil (12/20/2012 12:00 AM PDT) + + + [...]
--- OUTSIDE RECORDS SUMMARY | ~2019-07-14 | XMS | Encounter Summary ---
Demographics + + + | Address | [address] | | | [place] [address] | + + + | Home Phone [...] | | | | | [place] [address] | | + + + + + | Thania Mallory | ECON | [address] | | | | | [place] [address] | | + + + + + | Deidra Weldon | ECON | [address] | | | | | [place] | | | | | [address] | | + + + + + Care Team Providers + +------+ + | Care Safety Coordinator Name | Role | Phone | [...] | | | [address] | [facility] | | | | | [address] [place], | [place], [place] | | | | | [place] [address] | [address] | | | | | [phone] | | | +--------+ + + + [...] Denise | | | | | | [place], [place] | | | | | | [address] | | | | | | [phone] | | | | | | | [...] + + | [facility] - | [address] | [place] | [phone] | | [place] | | | | + + + + + documented in this encounter Visit Diagnoses Not on filedocumented in this encounter"
--- OUTSIDE RECORDS SUMMARY | ~2019-07-14 | XMS | Encounter Summary ---
Demographics + + + | Address | [address] | | | [place] [address] | + + + | Home Phone [...] | [facility] | | | and [place] | + + + | Organization | [facility] [...] Team Providers + +------+ + | Care Jewelry Manager Name | Role | Phone | + +------+ + PCP | Unavailable | + +------+ + Encounter Details +--------+ + + + + | Date | Type | Department | Care Team | Description | +--------+ + + + + | 06/12/ | Hospital | [facility] | Conversion | | | 2015 | Encounter | CENTER [facility] | Transaction, | | | | | CLINIC [address] | Provider Unknown | | | | | [place], [place] | [phone] | | | | | [address] | | | | | | [phone] | | | +--------+ + + + [...] | | | Patient | performed at [facility];[address] | | LAB | | | | [place] [address];[place] | | | | | | [address] | | | | + + + [...] | | | | | performed at [facility];[address] | | | | | | [facility];[place], [place] | | | | | | [address] | | | | + + + [...] + +---------+ + + External Lab: CBC (06/12/2014 1:18 PM PDT) + + + + + + | Component | Value | Ref Range | Performed | Pathologist | | | | | At | Signature | + + + + + + | WBC | 8.85Comment: Testing | 3.80 - 11.00 | EXTERNAL | | | | performed at [facility], [address] | K/uL | LAB | | | | [place], | | | | | | [place] [address] | | | | + + + + + + | Red Blood | 3.83Comment: Testing | 3.70 - 5.10 | EXTERNAL | | | Cells | performed at [facility], [address] | M/uL | LAB | | | Counted | [address], | | | | | | [place] [address] | | | | + + + + + + | Hemoglobin | 13.6Comment: Testing | 11.3 - 15.5 | EXTERNAL | | | | performed at [facility], [address] | g/dL | LAB | | | | [place], | | | | | | [place] [address] | | | | + + + + + + | Hematocrit, | 40.5Comment: Testing | 34.0 - 46.0 % | EXTERNAL | | | POC | performed at [facility], [address] | | LAB | | | | [place], | | | | | | [place] [address] | | | | + + + + + + | MCV | 105.8 (H)Comment: | 80.0 - 100.0 fl | EXTERNAL | | | | Testing performed at | | LAB | | | | [facility], [address] | | | | | | [place] | | | | | | [address] | | | | + + + + + + | MCH | 35.6 (H)Comment: Testing | 27.0 - 34.0 pg | EXTERNAL | | | | performed at [facility], [address] | | LAB | | | | [address], | | | | | | [place] [address] | | | | + + + + + + | MCHC | 33.6Comment: Testing | 32.0 - 35.5 | EXTERNAL | | | | performed at [facility], [address] | g/dL | LAB | | | | [address], | | | | | | [place] [address] | | | | + + + + + + | RDW-CV | 50.3Comment: Testing | 37 - 53 fl | EXTERNAL | | | | performed at [facility], [address] | | LAB | | | | [address], | | | | | | [place] [address] | | | | + + + + + + | Platelet | 170Comment: Testing | 150 - 400 K/uL | EXTERNAL | | | Count | performed at [facility], [address] | | LAB | | | Plasma | [address], | | | | | | [place] [address] | | | | + + + + + + | MPV | 9.5Comment: Testing | fl | EXTERNAL | | | | performed at [facility], [address] | | LAB | | | | [address], | | | | | | [place] [address] | | | | + + + + + + | Differentia | AUTOMATEDComment: | | EXTERNAL | | | l Type | Testing performed at | | LAB | | | | [facility], [address] | | | | | | [place] | | | | | | [address] | | | | + + + + + + | % Segmented | 61.53Comment: Testing | % | EXTERNAL | | | | performed at [facility], [address] | | LAB | | | Neutrophils | [address], | | | | | | [place] [address] | | | | + + + + + + | % | 26.38Comment: Testing | % | EXTERNAL | | | Lymphocytes | performed at [facility], [address] | | LAB | | | | [place], | | | | | | [place] [address] | | | | + + + + + + | % Monocytes | 8.30Comment: Testing | % | EXTERNAL | | | | performed at [facility], [address] | | LAB | | | | [address], | | | | | | [place] [address] | | | | + + + + + + | % | 3.19Comment: Testing | % | EXTERNAL | | | Eosinophils | performed at [facility], [address] | | LAB | | | | [address], | | | | | | [place] [address] | | | | + + + + + + | % Basophils | 0.60Comment: Testing | % | EXTERNAL | | | | performed at [facility], [address] | | LAB | | | | [address], | | | | | | [place], [place] [address] | | | | + + + + + + | Absolute | 5.44Comment: Testing | 1.90 - 7.40 | EXTERNAL | | | Segmented | performed at [facility], [address] | K/uL | LAB | | | Neutrophils | [address], | | | | | | [place] [address] | | | | + + + + + + | Absolute | 2.33Comment: Testing | 1.00 - 3.90 | EXTERNAL | | | Lymphocytes | performed at [facility], [address] | K/uL | LAB | | | | [address], | | | | | | [place] [address] | | | | + + + + + + | Absolute | 0.74Comment: Testing | 0.00 - 0.80 | EXTERNAL | | | Monocytes | performed at [facility], [address] | K/uL | LAB | | | | [address], | | | | | | [place] [address] | | | | + + + + + + | Absolute | 0.28Comment: Testing | 0.00 - 0.50 | EXTERNAL | | | Eosinophils | performed at [facility], [address] | K/uL | LAB | | | | [address], | | | | | | [place] [address] | | | | + + + + + + | Absolute | 0.05Comment: Testing | 0.00 - 0.10 | EXTERNAL | | | Basophils | performed at [facility], [address] | K/uL | LAB | | | | [address], | | | | | | [place] [address] | | | | + + + [...] | | | | | [place] [address] | | | | + + + + + + | K | 3.8Comment: Testing | 3.5 - 4.9 | EXTERNAL | | | | performed at [facility], [address] | mmol/L | LAB | | | | [place] [place], | | | | | | [place] [address] | | | | + + + + + + | Cl | 94 (L)Comment: Testing | 99 - 109 mmol/L | EXTERNAL | | | | performed at [facility], [address] | | LAB | | | | [address], | | | | | | [place] [address] | | | | + + + + + + | CO2 | 31Comment: Testing | 23 - 32 mmol/L | EXTERNAL | | | | performed at [facility], [address] | | LAB | | | | [address], | | | | | | [place] [address] | | | | + + + + + + | Anion Gap | 13Comment: Testing | 5 - 20 mmol/L | EXTERNAL | | | | performed at [facility], [address] | | LAB | | | | [address], | | | | | | [place] [address] | | | | + + + + + + | Glucose, | 95Comment: Testing | 65 - 99 mg/dL | EXTERNAL | | | Fasting | performed at [facility], [address] | | LAB | | | | [address], | | | | | | [place] [address] | | | | + + + + + + | BUN | 40 (H)Comment: Testing | 8 - 25 mg/dL | EXTERNAL | | | | performed at [facility], [address] | | LAB | | | | [address], | | | | | | [place] [address] | | | | + + + + + + | Creatinine | 7.24 (H)Comment: Testing | 0.50 - 1.00 | EXTERNAL | | | | performed at [facility], [address] | mg/dL | LAB | | | | [address], | | | | | | [place] [address] | | | | + + + + + + | BUN/Creatin | 6Comment: Testing | | EXTERNAL | | | ine Ratio | performed at [facility], [address] | | LAB | | | | [address], | | | | | | [place] [address] | | | | + + + + + + | Calcium | 10.2Comment: Testing | 8.5 - 10.5 | EXTERNAL | | | | performed at [facility], [address] | mg/dL | LAB | | | | [address], | | | | | | [place] [address] | | | | + + + + + + | Estimated | CALCULATION NOT | mL/min/1.73m2 | EXTERNAL | | | GFR | PERFORMED. RESULT NOT | | LAB | | | | VALID IF AGE LT 20 | | | | | | YEARS.Comment: Testing | | | | | | performed at [facility], [address] | | | | | | [address], | | | | | | [place] [address] | | | | + + + [...] EXTERNAL LAB | | Testing performed at [facility];[address] [place] [address];[place] [address] MRSA PCR | | | NEGATIVE Testing performed at | | | [address];[place] [address] | | + + + + +---------+ + + | Performing | Address | City/State/Zipcode | Phone Number | | Organization | | | | + +---------+ + + | EXTERNAL LAB | | | | + +---------+ + + documented in this encounter Visit Diagnoses Not on filedocumented in this encounter"
--- OUTSIDE RECORDS SUMMARY | ~2019-07-14 | XMS | Encounter Summary ---
Demographics + + + | Address | [address] | | | [place] [address] | + + + | Home Phone [...] | [facility] | | | and [place] | + + + | Organization | [facility] | | | and [...] Providers + +------+ + | Care Director Hematology Name | Role | Phone | + [...] | stage renal | [address] | [address] [place] [address] | | | | | disease) | Shun Griffin | [place] | | | | | ([facility]) | [address] | [address] | | | | | Anemia in | [place], [place] | [place] | | | | | ESRD | [address] | [address] Phone: | | | | | (end-stage | Phone: | [phone] | | | | | renal | [phone] | Fax: | | | | | disease) | Fax: | [phone] | | | | | ([facility]) | [phone] | | | | | | Procedures [...] | | [address] | [place], [address] [address] | (Primary Dx) | | | | [place], [place] | [place], [place] | | | | | [address] | [address] | | | | | [phone] | | | +--------+ + + + [...] uding the charge nurse, staff nurses, PCT's, sheet metal worker apprentice, dietitian myself she fails to heed any [...] today in Plan: 1. Will continue to drug abuse counselor her about her high risk for cardiovascular morbidity and compl ications given her lack of full compliance with her treatment. 2. The renal WOOL HAT HYDRAULICKER has been attempting to reach her. However, [...]
--- OUTSIDE RECORDS SUMMARY | ~2019-07-14 | XMS | Encounter Summary ---
Demographics + + + | Address | [address] | | | [place] [address] | + + + | Home Phone [...] | [facility] | | | and [place] | + + + | Organization | [facility] | | | and [place] [...] Providers + +------+ + | Care Health Information Coder Name | Role | Phone | + +------+ + PCP | Unavailable | + +------+ + Encounter Details +--------+ + + + + | Date | Type | Department | Care Team | Description | +--------+ + + + + | 07/09/ | Hospital | [facility] | Colten Hutchins MD | AV fistula | | 2017 | Encounter | [facility] | [address] | thrombosis, initial | | | | CLINICAL DECISION | [place] | encounter ([facility]) | | | | [address] | [address] | | | | | [place], [place] | | | | | | [address] | | | | | | [phone] | | | +--------+ + + + [...] 07/09/161821 Date of Service: 07/09/161820 Status: Signed Salvage Engineer: Catherine Lenz, RN (Registered Nurse) Patient stable [...] At | + + + | Successful islam of flow within the left brachiocephalic | [...] | The microaccesses were exchanged to 6 [place] sheaths. Patient was | | | heparinized. [...] | | stent. Intraprocedural fistulogram was demonstrated islam of | | | flow but severe [...] access. The microaccesses were exchanged to 6 [place] sheaths. Patient was | | heparinized. Via [...] stent. 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 IMPRESSION: Successful islam of flow within the | | left [...] At | + + + | Successful islam of flow within the left brachiocephalic | [...] | The microaccesses were exchanged to 6 [place] sheaths. Patient was | | | heparinized. [...] | | stent. Intraprocedural fistulogram was demonstrated islam of | | | flow but severe [...] access. The microaccesses were exchanged to 6 [place] sheaths. Patient was | | heparinized. Via [...] stent. 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 IMPRESSION: Successful islam of flow within the | | left [...] | | | Patient | performed at [facility];[address] | | LAB | | | | [address];[place], [place] | | | | | | [address] | | | | + + + [...] | | | performed at [facility];[address] | | | | | | [address];[place], [place] | | | | | | [address] | | | | + + + [...] | | | Estimate | performed at [facility] | | LAB | | | | [address];[place], [place] | | | | | | [address] | | | | + + + [...] | | | | at [facility];[address] [place] [address] | | | | | | [facility];[place] [address] | | | | + + + [...]
--- OUTSIDE RECORDS SUMMARY | ~2019-07-14 | XMS | Encounter Summary ---
Demographics + + + | Address | [address] | | | [place] [address] | + + + | Home Phone [...] Author | [facility] | | | and [place] | + + + | Organization | [facility] | | [...] Providers + +------+ + | Care Professional Athletes Coach Name | Role | Phone | [...] | | [address] | [place], [address] | | | | | [place], [place] | [place], [place] | | | | | [address] | [address] | | | | | [phone] | | | +--------+ + + + [...]
--- OUTSIDE RECORDS SUMMARY | ~2019-07-14 | XMS | Encounter Summary ---
Demographics + + + | Address | [address] | | | [place] [address] | + + + | Home Phone [...] | [facility] | | | and [place] | + + + | Organization | [facility] | | [...] Team Providers + +------+ + | Care Speech Pathology Assistant Name | Role | Phone | [...] NEPHROLOGY [address] | M, DO [address] | | | | | [address] | [place], [address] | | | | | [place], [place] | [place], [place] | | | | | [address] | [address] | | | | | [phone] | | | +--------+ + + + [...]
--- OUTSIDE RECORDS SUMMARY | ~2019-07-14 | XMS | Encounter Summary ---
Demographics + + + | Address | [address] | | | [place] [address] | + + + | Home Phone [...] | Author | [facility] | | | and [place] | + + + | Organization | [facility] [...] Team Providers + +------+ + | Care Sign Manufacturer Name | Role | Phone | [...] | | [address] | [facility] | | | | | [address] | [place] [address] | | | | | [phone] | [phone] | | | | | | | [...]
--- OUTSIDE RECORDS SUMMARY | ~2019-07-14 | XMS | Encounter Summary ---
Demographics + + + | Address | [address] | | | [place] [address] | + + + | Home Phone [...] | | | | | [place] [address] | | + + + + + | Thania Mallory | ECON | [address] | | | | | [place] [address] | | + + + + + | Deidra Weldon | ECON | [address] | | | | | [place] | | | | | [address] | | + + + + + Care Team Providers + +------+ + | Care Bedspread Cutter Name | Role | Phone | [...] | | | | [address] | [address] | clinic check-in) | | | | Dea Jane, Room | [place], [place] | | | | | [address] [place], [place] | [address] | | | | | [address] | | | | | | [phone] | | | +--------+ + + + [...] Denise | | | | | | [place] | | | | | | [address] | | | | | | [phone] | | | | | | | | +--------+ + + + + documented as of this encounter Visit Diagnoses Not on filedocumented in this encounter"
--- OUTSIDE RECORDS SUMMARY | ~2019-07-14 | XMS | Encounter Summary ---
Demographics + + + | Address | [address] | | | [place] [address] | + + + | Home Phone [...] | Author | [facility] | | | and [place] | + + + | Organization | [facility] | | | and [...] Providers + +------+ + | Care Claim Auditor Name | Role | Phone | [...] NEPHROLOGY [address] | M, DO [address] | | | | | [address] | [place], [address] | | | | | [place], [place] | [place], [place] | | | | | [address] | [address] | | | | | [phone] | | | +--------+ + + + [...] repeatedly declines. 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
--- OUTSIDE RECORDS SUMMARY | ~2019-07-14 | XMS | Encounter Summary ---
Demographics + + + | Address | [address] | | | [place] [address] | + + + | Home Phone [...] | | | | | [place] [address] | | + + + + + | Thania Mallory | ECON | [address] | | | | | [place] [address] | | + + + + + | Deidra Weldon | ECON | [address] | | | | | [place] | | | | | [address] | | + + + + + Care Team Providers + +------+ + | Care Admission Nurse Name | Role | Phone | [...] Denise | | | | | | [place], [place] | | | | | | [address] | | | | | | [phone] | | | | | | | | +--------+ + + + + documented as of this encounter Visit Diagnoses Not on filedocumented in this encounter"
--- OUTSIDE RECORDS SUMMARY | ~2019-07-14 | XMS | Encounter Summary ---
Demographics + + + | Address | [address] | | | [place] [address] | + + + | Home Phone [...] | Author | [facility] | | | and [place] | + + + | Organization | [facility] | [...] Team Providers + +------+ + | Care Switchboard Mechanic Name | Role | Phone | [...] | stage renal | [address] | [address] [place] [address] | | | | | disease) | Shun Griffin | [place] | | | | | (HCC) | [address] | [address] [place] | | | | | Anemia in | [place], [place] | [place], [place] | | | | | ESRD | [address] | [address] Phone: | | | | | (end-stage | Phone: | [phone] | | | | | renal | [phone] | Fax: | | | | | disease) | Fax: | [phone] | | | | | ([facility]) | [phone] | | | | | | Procedures | | | | | | | [place] ESRD | | | | | | [...] DO [address] | renal disease) ([facility]) | | | | [address] | [place], [address] | (Primary Dx) | | | | [place], [place] | [place], [place] | | | | | [address] | [address] | | | | | [phone] | | | +--------+ + + + [...] to fall on the Pars[place]iv, IV? : [place] Fina Alonso MD, PhD documented in thi s encounter Plan of Treatment Not on filedocumented as of this encounter Visit Diagnoses + + | Diagnosis | + + | ESRD (end stage renal disease) (HCC) - Primary End stage renal disease | + + documented in this encounter
--- OUTSIDE RECORDS SUMMARY | ~2019-07-14 | XMS | Clinical Summary ---
Demographics + + + | Address | [address] | | | [place] [address] | + + + | Home Phone [...] | | | | | [place] [address] | | + + + + + | Thania Mallory | ECON | [address] | | | | | [place] [address] | | + + + + + | Deidra Weldon | ECON | [address] | | | | | [place], [place] | | | | | [address] | | + + + + + Care Team Providers + +------+ + | Care Ict Managers Name | Role | Phone | + +------+ + | Jonathan Alonso MD | PCP | | + +------+ + Source Comments DANILO is fully live on both EpicCare Ambulatory and EpicCare InPatient.[facility] Allergies + + + + + [...] | | | | | | [place], [place] | | | | | | [address] | | | | | | [phone] | | | | | | | [...] + + + | Influenza (Flu) | Completed | 12/11/2018, 12/13/2012 | | | vaccination | | | | + + + [...] + +--------+ | MEDICARE | MEDICA | xxxxxxxxxxx | 05/05/19 | [phone] | [address] | Medica | | | RE A & | | 13-Pre | 1 | [address] | re | | | B | | sent | | [place] | | | | | | | | [address] | | + +--------+ +--------+ + +--------+ | [employer] FOOTWE[employer] MEDICAID | TEXTILE CLOTHING [employer] FOOTWE[employer]CH[employer]IC | xxxxxxxx | Effect | | | [...] RECIPI | | all | | [place] [address] | | | | ENT | | [...] | Self | [birth year] | [address] | | | al/Fam | | 1995 | [phone] | [address] [place] | | | kamron | | | 2 ([place]) | [address] | | | | | | [phone] | | | | | | | 0 (Work) | | + +--------+ +--------+ + + | CORY ALVES | Specia | Mother | [birth year] | [address] | | | l | | 1899 | [phone] | [address] [place] | | | [place] | | | 2 (Home) | [address] | | | g | | | | | + +--------+ +--------+ + +
--- OUTSIDE RECORDS SUMMARY | ~2019-07-14 | XMS | Encounter Summary ---
Demographics + + + | Address | [address] | | | [place] [address] | + + + | Home Phone [...] | | | | | [place] [address] | | + + + + + | Thania Mallory | ECON | [address] | | | | | [place] [address] | | + + + + + | Deidra Weldon | ECON | [address] | | | | | [place] | | | | | [address] | | + + + + + Care Team Providers + +------+ + | Care Refrigeration Systems Installer Name | Role | Phone | [...] Nephrology at | MD Emanuel [address] | | | | | [place] | [facility] | | | | | [facility] | [place], [place] | | | | | [address] | [address] | | | | | [place] | [phone] | | | | | [facility], | | | | | | [address] [place] [address] | | | | | | [place], [place] | | | | | | [address] | | | | | | [phone] | | | +--------+ + + + [...] [place] | | | | | | [address] | | | | | | [phone] | | | | | | | | +--------+ + + + + documented as of this encounter Visit Diagnoses Not on filedocumented in this encounter"
--- OUTSIDE RECORDS SUMMARY | ~2019-07-14 | XMS | Encounter Summary ---
Demographics + + + | Address | [address] | | | [place] [address] | + + + | Home Phone [...] | | | | | [place] [address] | | + + + + + | Thania Mallory | ECON | [address] | | | | | [place] [address] | | + + + + + | Deidra Weldon | ECON | [address] | | | | | [place] | | | | | [address] | | + + + + + Care Team Providers + +------+ + | Care Experimental Plastics Fabricator Name | Role | Phone | [...] 2005 | Registratio | Shun Elizondo | [phone] | | | | [address] | [address] Mailcode: [id number] | | | | | | [place], [place] | | | | | | [address] | | | | | | [phone] | | | +--------+ + + + [...] Denise | | | | | | [place], [place] | | | | | | [address] | | | | | | [phone] | | | | | | | [...] Garcia | | | | | | [facility], | | | | | | [place],labeled [place] | | | | | | kidney [...] number | | | | | | [id number].[facility]/lab | | | | | | Microscopic [...] wall | | | | | | [id number]: | | | | | | NegativeFibrinogen: [...] | + + + + + | [facility] | [address] | [place] [address] | | | PATHOLOGY | [place] | | | + + + + + | [facility] | [address] | [place] [address] | | | PATHOLOGY | [place] | | | + + + + + documented in this encounter Visit Diagnoses Not on filedocumented in this encounter"
--- OUTSIDE RECORDS SUMMARY | ~2019-07-14 | XMS | Encounter Summary ---
Demographics + + + | Address | [address] | | | [place] [address] | + + + | Home Phone [...] | | | | | [place] [address] | | + + + + + | Thania Mallory | ECON | [address] | | | | | [place] [address] | | + + + + + | Deidra Weldon | ECON | [address] | | | | | [place] | | | | | [address] | | + + + + + Care Team Providers + +------+ + | Care Armoring Machine Operator Name | Role | Phone [...] Requested | | | | Alexander | [facility] | | | | | [facility] | [place], [place] | | | | | [address] [place] [address] Dr | [address] | | | | | Alexander | | | | | | [facility], | | | | | | [address] [place] [address] | | | | | | [place], [place] | | | | | | [address] | | | | | | [phone] | | | +--------+ + + + [...] Denise | | | | | | [place], [place] | | | | | | [address] | | | | | | [phone] | | | | | | | | +--------+ + + + + documented as of this encounter Visit Diagnoses Not on filedocumented in this encounter"
--- OUTSIDE RECORDS SUMMARY | ~2019-07-14 | XMS | Encounter Summary ---
Demographics + + + | Address | [address] | | | [place] [address] | + + + | Home Phone [...] Author | [facility] | | | and Josephana | + + + | Organization | [facility] | | [...] Team Providers + +------+ + | Care Township Clerk Name | Role | Phone | [...] | Encounter | JOY | MD Emanuel [address] | | | | | [address]PART[address] | [facility] | | | | | [address] | [place], [place] | | | | | [place], [place] | [address] | | | | | [address] | [phone] | | | | | [phone] | | | +--------+ + + + [...]
--- OUTSIDE RECORDS SUMMARY | ~2019-07-14 | XMS | Encounter Summary ---
Demographics + + + | Address | [address] | | | [place] [address] | + + + | Home Phone [...] | | | | | [place] [address] | | + + + + + | Thania Mallory | ECON | [address] | | | | | [place] [address] | | + + + + + | Deidra Weldon | ECON | [address] | | | | | [place] | | | | | [address] | | + + + + + Care Team Providers + +------+ + | Care Hydro Pneumatic Tester Name | Role | Phone | + +------+ + PCP | Unavailable | + +------+ + Encounter Details +--------+ + + + + | Date | Type | Department | Care Team | Description | +--------+ + + + + | 03/22/ | Abstract | Pediatric | Sudhakar Joy | | | 2013 | | Nephrology at | MD Emanuel [address] [facility] | | | | | Alexander | Elias Elizondo | | | | | [facility] | [place], [place] | | | | | [address] | [address] | | | | | Alexander | [phone] | | | | | [facility], | | | | | | [address] [place] [address] | | | | | | [place], [place] | | | | | | [address] | | | | | | [phone] | | | +--------+ + + + [...] Denise | | | | | | [place], [place] | | | | | | [address] | | | | | | [phone] | | | | | | | [...] + + | [facility] - | [address] | [place] | [phone] | | [place] | | | | + + + + + documented in this encounter Visit Diagnoses Not on filedocumented in this encounter"
--- OUTSIDE RECORDS SUMMARY | ~2019-07-14 | XMS | Encounter Summary ---
Demographics + + + | Address | [address] | | | [place] [address] | + + + | Home Phone [...] | | | | | [place] [address] | | + + + + + | Thania Mallory | ECON | [address] | | | | | [place] [address] | | + + + + + | Deidra Weldon | ECON | [address] | | | | | [place] | | | | | [address] | | + + + + + Care Team Providers + +------+ + | Care Egg Separator Name | Role | Phone | + [...] | Nephrology at | MD Emanuel [address] [facility] | Recommendations | | | | Alexander | Elias Caro | | | | | [facility] | [place], [place] | | | | | [address] | [address] | | | | | Alexander | [phone] | | | | | [facility], | | | | | | [address] [place] [address] | | | | | | [place], [place] | | | | | | [address] | | | | | | [phone] | | | +--------+ + + + [...] [facility] | | | | | | [address] | | | | | | [phone] | | | | | | | | +--------+ + + + + documented as of this encounter Visit Diagnoses Not on filedocumented in this encounter"
--- OUTSIDE RECORDS SUMMARY | ~2019-07-14 | XMS | Encounter Summary ---
Demographics + + + | Address | [address] | | | [place] [address] | + + + | Home Phone [...] Author | [facility] | | | and [place]ana | + + + | Organization | [facility] | [...] Providers + +------+ + | Care Specialty Foods Cook Name | Role | Phone | [...] | NEPHROLOGY [address] | | | | | [address] | [address] [place] | | | | | [place], [place] | [place] [address] | | | | | [address] | [phone] | | | | | [phone] | | | +--------+ + + + [...] this encounter Progress Notes Marilyn Palumbo - 11/21/2016 4:47 PM PDTOutside record: Proof of need for a Reasonable A ccommodation, dos: 11/21/16. Sent to scan.Electronically signed by Marilyn Palumbo at 11/21 4:48 PM PDTdocumented in this encounter Plan of Treatment Not on filedocumented as of this encounter Visit Diagnoses Not on filedocumented in this encounter"
--- OUTSIDE RECORDS SUMMARY | ~2019-07-14 | XMS | Encounter Summary ---
Demographics + + + | Address | [address] | | | [place] [address] | + + + | Home Phone [...] Author | [facility] | | | and [place]ana | + + + | Organization | [facility] | | | and Josephana [...] Team Providers + +------+ + | Care Leak Gang Supervisor Name | Role | Phone [...] | NEPHROLOGY [address] | renal disease) ([facility]) | | | | [address] | [address] [place] | (Primary Dx); | | | | [place], [place] | [place] [address] | Depression | | | | [address] | [phone] | | | | | [phone] | | | +--------+ + + + [...]
--- OUTSIDE RECORDS SUMMARY | ~2019-07-14 | XMS | Encounter Summary ---
Demographics + + + | Address | [address] | | | [place] [address] | + + + | Home Phone [...] Author | [facility] | | | and Josephana | + + + | Organization | [facility] | | | and Josephana [...] Providers + +------+ + | Care Fish Icer Name | Role | Phone | + [...] | NEPHROLOGY [address] | [address] | | | | | [address] | [address] [place] | | | | | [place], [place] | [place] [address] | | | | | [address] | [phone] | | | | | [phone] | | | +--------+--------+ + + + [...]
--- OUTSIDE RECORDS SUMMARY | ~2019-07-14 | XMS | Encounter Summary ---
Demographics + + + | Address | [address] | | | [place] [address] | + + + | Home Phone [...] Author | [facility] | | | and Josephana | + + + | Organization | [facility] | | | and [...] Providers + +------+ + | Care Counseling Program Leader Name | Role | Phone | + +------+ + | Tien Nicholson MD | PCP | | + +------+ + Encounter Details +--------+ + + + + | Date | Type | Department | Care Team | Description | +--------+ + + + + | 07/18/ | Hospital | [facility] | Mary Mckay, | Febrile illness; | | 2019 - | Encounter | [facility] | [address] | Recurrent pleural | | | | CARE FLOOR [address] | [place] [address] | effusion on right; | | 07/24/ | | [address] | [phone] | Hypoxia; History of | | 2019 | | [place], [place] | | end stage renal | | | | [address] | | disease; ESRD on | | | | [phone] | | hemodialysis ([facility]); | | | | | | Anemia in ESRD | | | | | | (end-stage renal | | | | | | disease) ([facility]); | | | | | | Moderate to severe | | | | | | pulmonary | | | | | | hypertension ([facility]); | | | | | | Chronic right-sided | | | | | | heart failure ([facility]); | | | | | [...] 1306 Date of Service: 07/24/18905 Status: Signed Consulting Intern: Usha Martínez MD (Physician) [facility] Service: Hospitalist Discharge Summary Date [...] involving the right lung. Signed by: Suha eLnz Amit Sign Date/Time: 07/20/2018 9:30 AM ADDENDUM [...] renal disease on hemodialysis Monday and Monday (type proof reproducer Dr. 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, hypertension, asthma, chronic combined heart failure, severe pulmonary hypertension, cor pulmonale, moderate mitral valve regurgitation, severe tricuspid regurgit ation and other chronic comorbidities who was discharged on 05/2018 from [facility] with bilateral pleural effusions and ascites status post thoracentesis 1.5 L removed transudative and 4 L ascitic fluid removed who presents to [facility] ER from [place] [facility] for sepsis likely seco ndary to [...] after discharge and to follow -up with type proof reproducer and home insurance agent within 1 to 2 weeks after discharge [...] AV FISTULA; Surgeon: Rik Simon MD; Location: [facility] MA[facility] OR; Service: Vascula r; Laterality: Left; cephalic AV FISTULA REPAIR Left 03/07/2014 Procedure: AV FISTULA - GRAFT REPAIR/REVISION; Surgeon: Rik Simon MD; Location: [facility] IN OR; Service: Vascular; Laterality: Left; DECLOT GRAFT Left 03/07/2014 Procedure: GRAFT - DECLOT; Surgeon: Rik Simon MD; Location: [facility] MA[facility] OR; Service: Vas cular; Laterality: Left; DIALYSIS FISTULA CREATION N/A 04/08/2014 Procedure: DIALYSIS CATHETER - INSERTION; Surgeon: Rik Simon MD; Location: [facility] OR ; Service: Vascular; Laterality: N/A; tunneled catheter LAPAROSCOPIC PERITONEAL DIALYSIS CATHETER INSERTION x2 LAPAROSCOPIC PERITONEAL DIALYSIS CATHETER INSERTION Right 07/2013 current dialysis access MWF dialysis RENAL BIOPSY RENAL BIOPSY Left 2003 SUPERFICIALIZATION OF AV FISTULA Left 06/24/2014 Procedure: AV FISTULA - SUPERFICIALIZATION; Surgeon: Rik Simon MD; Location: [facility] OR; Service: Vascular; Laterality: Left; Allergies Allergen [...] PH Unknown 7.48 Fluid culture w/gram stain [[id number]] Collected: 07/21/18 1400 Order Status: Completed Lab Status: Preliminary result Updated: 07/24/18 0948 Specimen: Body Fluid from Thoracic Fluid Specimen Description THORACIC FLUID GRAM STAIN NO CELLS OR ORGANISMS SEEN CULTURE NO GROWTH 3 DAYS Fluid total protein (Body fluid) [[id number]] Collected: 07/21/18 1400 Order Status: Completed Lab Status: Final result Updated: 07/21/18 165 Specimen: Body Fluid from Thoracentesis Fluid FLUID TOTAL PROTEIN 4.2 g/dL Comment: This is not a utilization management nurse validated sample type for this method. No reference ra nges have been established. Testing performed at [facility], [address] [place] [address] FLUID TP SOURCE THORACENTESIS Comment: Testing performed at [facility];[address] [place] [address] Lactate dehydrogenase, body fluid [[id number]] Collected: 07/21/18 1400 Order Status: Completed Lab Status: Final result Updated: 07/21/181649 Specimen: Body Fluid from Thoracentesis Fluid FLUID LDH 148 U/L Comment: This is not a utilization management nurse validated sample type for this method. No reference ra nges have been established. Testing performed at [facility], [address] [place] [address] pH, body fluid [[id number]] Collected: 07/21/18 1400 Order Status: Completed Lab Status: Final result Updated: 07/21/18 1426 Specimen: Body Fluid from Thoracentesis Fluid FLUID PH 7.48 Comment: Testing performed at [facility];[address] [place] [address] Blood Culture Set 1 [[id number]] Collected: 07/19/18 0853 Order Status: Completed Lab Status: Preliminary result Updated: 07/21/18 06 Specimen: Blood from Blood, peripheral draw Specimen Description BLOOD, PERIPHERAL DRAW SPECIAL REQUESTS RIGHT AC CULTURE NO GROWTH 2 DAYS Blood Culture Set 2 [[id number]] Collected: 07/19/18 0925 Order Status: Completed Lab Status: Preliminary result Updated: 07/21/18 06 Specimen: Blood from Blood, peripheral draw Specimen Description BLOOD, PERIPHERAL DRAW SPECIAL REQUESTS RT FOREARM CULTURE NO GROWTH 2 DAYS Respiratory Filmarray [[id number]] (Abnormal) Collected: 07/19/18 0132 Order Status: Completed [...] by Molecular Methodology Comment: Testing performed at [facility], [address] [place] [address] MRSA by PCR [[id number]] Collected: 07/19/18 013 Order Status: Completed Lab Status: Final result Updated: 07/19/18303 Specimen: Nasal from Nares(Nose) SOURCE NARES(NOSE) MRSA PCR NEGATIVE Comment: Testing performed at [facility];[address] [place] [address];[place] [address] Disposition: Home Condition: Stable Code Status: Full [...] Follow up: Tien Nicholson MD [address] [facility], [address] [place] [address] Schedule an appointment as soon as possible for a visit in 1 week [facility] [address] [place] [address] Schedule an appointment as soon as possible for a visit in 1 week [facility] [address] [place] [address] Schedule an appointment as soon as [...] | | | | | renal disease) ([facility]) | protocol | | | [...] Date of Service: 07/24/18 1028 Status: Signed Consulting Intern: Iram Saleh RN (Registered Nurse) Disposition: Home [...] Date of Service: 07/24/18 1016 Status: Signed Consulting Intern: Christina Aguilar RN (Registered Nurse) Discharge teaching given, prescriptions faxed by director case to pt's pharmacy. Pt denies c oncern. Ride home at bedside. Pt getting dressed now for discharge. onver arturo Transaction, Provider Unknown - 07/24/2018 10:12 AM PDT Case Management by Iram Saleh RN at 07/24/18 1012 Author: Iram Saleh RN Service: (none) Author Type: Registered Nurse Filed: 07/24/18 1014 Date of Service: 07/24/18 1012 Status: Signed Consulting Intern: Iram Saleh RN (Registered Nurse) Discharge planning: Met with pt, she indicated her friend is on her way to transport her from the hospital, no other needs identified. ADÁN signed and copy placed in chart. Pt's discharge prescriptions was faxed to [facility], Billie Braxton MD - 07/24/2018 9:09 AM PDTFormatting of this note might be different from th e original. Progress Notes by Billie Gupta MD at 07/24/18 0909 Author: Billie Gupta MD Service: Nephrology Author Type: Physician Filed: 07/24/1811 Date of Service: 07/24/18 09 Status: Signed Consulting Intern: Billie Gupta MD (Physician) [facility] Followup -Nephrology I saw Ms. Dara Louise today for follow-up. she is interviewed, examined and meds/ labs Have been reviewed. 23-year-old female with an extensive past medical history of IgA vasculitis, end-stage abdiel l disease on hemodialysis Monday and Monday (type proof reproducer Dr. Anguiano) , chronic c ombined heart failure, severe pulmonary hypertension, cor pulmonale, moderate mitral valve r egurgitation, severe tricuspid regurgitation and other chronic comorbidities who was dischar ged on 05/2018 from [facility] with bilateral pleural effusions and ascites status post thoracente sis 1.5 L removed transudative and 4 L ascitic fluid removed who presents to [facility] ER f rom [place] [facility] for sepsis likely secondary to pneumonia. [...] 07/24/18524 Date of Service: 07/24/18454 Status: Signed Consulting Intern: Minda Hudson RN (Registered Nurse) Pt reporting [...] (none) Author Type: Registered Nurse Filed: 07/23/18 2730 Date of Service: 07/23/181825 Status: Signed Consulting Intern: Saundra Hartley RN (Registered Nurse) Pt continues to c/o some abdominal pain and nausea, PRN dilaudid and zofran given with reli ef. Pt had HD today and completed entire session, 3L was taken off. Pt remains on 1.5 L oxyg en via nasal cannula. SBP 100-130, HR 60-70, and afebrile. No acute changes during hourly ro unding. End of shift audit complete. Saundra Hartley, RN otero Lau MD - 07/23/2018 1:36 PM PDT Progress Notes by Sotero Reinoso MD at 07/23/18 5804 Author: Sotero Reinoso MD Service: Hospitalist Author Type: Physician Filed: 07/23/180 Date of Service: 07/23/181335 Status: Signed Consulting Intern: Sotero Reinoso MD (Physician) [facility] Service: Hospitalist Progress Note Hospital Day: LOS: 4 days Briefly, 23-year-old female with an extensive past medical history of IgA vasculitis, end-s tage renal disease on hemodialysis Monday and Monday (type proof reproducer Dr. Anguiano) co mplicated with thrombosis of vascular dialysis stent on Plavix, hypertension, asthma, chroni c combined heart failure, severe pulmonary hypertension, cor pulmonale, moderate mitral valv e regurgitation, severe tricuspid regurgitation and other chronic comorbidities who was disc harged on 05/2018 from [facility] with bilateral pleural effusions and ascites status post thorace ntesis 1.5 L removed transudative and 4 L ascitic fluid removed who presents to [facility] E R from [place] [facility] for sepsis likely secondary to pulmonary [...] weeks after discharge and to follow-up with type proof reproducer and home insurance agent within 1 to 2 weeks after discharge [...] range Anemia in ESRD (end-stage renal disease) ([facility]) ASSESSMENT & PLAN 1. Sepsis: -Hemodynamically stable. -Noted at [facility] the patient was febrile with a [...] The patient does follow up with outpatient home insurance agent (Dr. Mahmood) patient is tentative ly and referral to advanced heart failure center with consideration of [facility] basement. -The patient has been educated on fluid and salt restriction in detail. Thrombocytopenia: -Chronic. -Stable, will monitor. Severe tricuspid regurgitation/moderate mitral regurgitation: -Medical management. -Maintain euvolemia Disposition: inpatient Code Status: Full Code Sotero Reinoso MD 07/23/2018 Billie Bob MD - 07/23/2018 9:18 AM PDT Progress Notes by Billie Gupta MD at 07/23/18917 Author: Billie Gupta MD Service: Nephrology Author Type: Physician Filed: 07/23/18926 Date of Service: 07/23/18917 Status: Signed Consulting Intern: Billie Gupta MD (Physician) [facility] Followup -Nephrology I saw Ms. Dara Louise today for follow-up. she is interviewed, examined and meds/ labs Have been reviewed. 23-year-old female with an extensive past medical history of IgA vasculitis, end-stage abdiel l disease on hemodialysis Monday and Monday (type proof reproducer Dr. Anguiano) , chronic c ombined heart failure, severe pulmonary hypertension, cor pulmonale, moderate mitral valve r egurgitation, severe tricuspid regurgitation and other chronic comorbidities who was dischar ged on 05/2018 from [facility] with bilateral pleural effusions and ascites status post thoracente sis 1.5 L removed transudative and 4 L ascitic fluid removed who presents to [facility] ER f [facility] ER for sepsis likely secondary [...] 07/23/18622 Date of Service: 07/23/18622 Status: Signed Consulting Intern: Shannon Martell RN (Registered Nurse) No acute [...] 07/22/181726 Date of Service: 07/22/181722 Status: Signed Consulting Intern: Sotero Reinoso MD (Physician) [facility] Service: Hospitalist Progress Note Hospital Day: LOS: 3 days 23-year-old female with an extensive past medical history of IgA vasculitis, end-stage abdiel l disease on hemodialysis Monday and Monday (type proof reproducer Dr. Anguiano) complicated with thrombosis of vascular dialysis stent on Plavix, hypertension, asthma, chronic combine d heart failure, severe pulmonary hypertension, cor pulmonale, moderate mitral valve regurgi tation, severe tricuspid regurgitation and other chronic comorbidities who was discharged on 05/2018 from [facility] with bilateral pleural effusions and ascites status post thoracentesis 1.5 L removed transudative and 4 L ascitic fluid removed who presents to [facility] ER from [facility] ER for sepsis likely secondary to [...] range Anemia in ESRD (end-stage renal disease) ([facility]) ASSESSMENT & PLAN 1. Sepsis: -Hemodynamically stable. -Noted at [place]' the patient was febrile with a T-max [...] The patient does follow up with outpatient home insurance agent (Dr. Mahmood) patient is tentative ly and [...] Date of Service: 07/22/18 1609 Status: Addendum Consulting Intern: Rafaela Patel RN (Registered Nurse) Related Notes: [...] Filed: 07/22/18 1221 Date of Service: 07/22/18 0934 Status: Addendum Consulting Intern: Billie Gupta MD (Physician) Related Notes: Original Note by KRISHNA Sahu (Advanced Registered Nurse Practitio [facility]) filed at 07/22/18 1057 [facility] Followup -Nephrology I saw Ms. Dara Louise today for follow-up. she is interviewed, examined and meds/ labs Have been reviewed. 23-year-old female with an extensive past medical history of IgA vasculitis, end-stage abdiel l disease on hemodialysis Monday and Monday (type proof reproducer Dr. Anguiano) complicated with thrombosis of vascular dialysis stent on Plavix, hypertension, asthma, chronic combine d heart failure, severe pulmonary hypertension, cor pulmonale, moderate mitral valve regurgi tation, severe tricuspid regurgitation and other chronic comorbidities who was discharged on 05/2018 from [facility] with bilateral pleural effusions and ascites status post thoracentesis 1.5 L removed transudative and 4 L ascitic fluid removed who presents to [facility] ER from [facility] ER for sepsis likely secondary to [...] Progress Note by Priti Priest RN at 07/22/18 0654 Author: Priti Priest RN Service: (none) Author Type: Registered Nurse Filed: 07/22/18 0656 Date of Service: 07/22/18653 Status: Signed Consulting Intern: Priti Priest RN (Registered Nurse) SBP 80-100's, Pt reports slight lightheadedness with pressures in 80's. Afebrile. HR SR 80' s. No other changes over noc. [facility] Chart chart complete onver arturo Transaction, Provider Unknown - 07/21/2018 7:42 PM PDT Nurse Progress Note by Francesca Bustos RN at 07/21/181941 Author: Francesca Bustos RN Service: (none) Author Type: Registered Nurse Filed: 07/21/181942 Date of Service: 07/21/181941 Status: Signed Consulting Intern: Francesca Bustos RN (Registered Nurse) No significant [...] Service: Hospitalist Author Type: Physician Filed: 07/22/18 7697 Date of Service: 07/21/18 1233 Status: Signed Consulting Intern: Sotero Reinoso MD (Physician) [facility] Service: Hospitalist Progress Note Hospital Day: LOS: 2 days 23-year-old female with an extensive past medical history of IgA vasculitis, end-stage abdeil l disease on hemodialysis Monday and Monday (type proof reproducer Dr. Anguiano) complicated with thrombosis of vascular dialysis stent on Plavix, hypertension, asthma, chronic combine d heart failure, severe pulmonary hypertension, cor pulmonale, moderate mitral valve regurgi tation, severe tricuspid regurgitation and other chronic comorbidities who was discharged on 05/2018 from [facility] with bilateral pleural effusions and ascites status post thoracentesis 1.5 L removed transudative and 4 L ascitic fluid removed who presents to [facility] ER from [facility] ER for sepsis likely secondary to [...] Dilated cardiomyopathy (HCC) Acute hypoxemic respiratory failure ([facility]) Pleural effusion on right Chronic right-sided heart failure (HCC) Hypertension Pancytopenia (HCC) Chest pain Other ascites Troponin I above reference range Anemia in ESRD (end-stage renal disease) ([facility]) ASSESSMENT & PLAN 1. Sepsis: -Hemodynamically stable. -Noted at [facility] the patient was febrile with a T-max of 101. -CT chest reviewed. -Respiratory film array positive for parainfluenza 3. Blood cultures ordered-pending. -MRSA screen of the nares negative. -Initial lactate negative. -Continue with cefepime present time the next 24-48 hours based on results we will consid er down titrating therapy versus discontinuation and this was likely viral in nature. -Thoracentesis performed on 5/18 with 1.5 L removed. Body fluid labs [...] The patient does follow up with outpatient home insurance agent (Dr. Mahmood) patient is tentative ly and [...] Date of Service: 07/21/18 1024 Status: Signed Consulting Intern: Billie Gupta MD (Physician) [facility] Followup -Nephrology I saw . [...] 07/21/18614 Date of Service: 07/21/18614 Status: Signed Consulting Intern: Gris Hawk RN (Registered Nurse) Medicated for pain x1, nausea x1. No other acute changes noted. End of shift review complet e. onver arturo Transaction, Provider Unknown - 07/20/2018 7:44 PM PDT Nurse Progress Note by Francesca Bustos RN at 07/20/181943 Author: Francesca Bustos RN Service: (none) Author Type: Registered Nurse Filed: 07/20/181945 Date of Service: 07/20/181943 Status: Signed Consulting Intern: Francesca Bustos RN (Registered Nurse) No significant [...] 07/20/181624 Date of Service: 07/20/181624 Status: Signed Consulting Intern: Prashanth Estevez RN (Registered Nurse) Infection Prevention [...] completed Mycoplasma pneumoniae Droplet (DI) Prashanth Estevez [facility]o Sotero parker MD - 07/20/2018 4:15 PM PDT Progress Notes by Sotero Reinoso MD at 07/20/181614 Author: Sotero Reinoso MD Service: Hospitalist Author Type: Physician Filed: 07/20/181625 Date of Service: 07/20/181614 Status: Signed Consulting Intern: Sotero Reinoso MD (Physician) [facility] Service: Hospitalist Progress Note Hospital Day: LOS: 1 day 23-year-old female with an extensive past medical history of IgA vasculitis, end-stage abdiel l disease on hemodialysis Monday and Monday (type proof reproducer Dr. Anguiano) complicated with thrombosis of vascular dialysis stent on Plavix, hypertension, asthma, chronic combine d heart failure, severe pulmonary hypertension, cor pulmonale, moderate mitral valve regurgi tation, severe tricuspid regurgitation and other chronic comorbidities who was discharged on 05/2018 from [facility] with bilateral pleural effusions and ascites status post thoracentesis 1.5 L removed transudative and 4 L ascitic fluid removed who presents to [facility] ER from [facility] for sepsis likely secondary to [...] range Anemia in ESRD (end-stage renal disease) ([facility]) ASSESSMENT & PLAN 1. Sepsis: -Hemodynamically stable. -Noted at [place]' the patient was febrile with a T-max [...] The patient does follow up with outpatient home insurance agent (Dr. Mahmood) patient is tentative ly and [...] Filed: 07/20/18 1514 Date of Service: 07/20/18 150 Status: Signed Consulting Intern: Stephanie Hirsch RN (Registered Nurse) 07/20/18 1500 [...] Oriented Prior functional status independent Power of Provider Contracting Consultant No Anticipated Discharge Plan Post Acute Care Needs None at this time Plan communicated to patient/family Yes Resources Financial concerns No Transportation issues No Patient/Family concerns No Prescription Plan Yes Name of Pharmacy [facility] or [facility] Previous home health equipment No Vascular access device No Ostomy/Drains/Appliances No Anticipated Disposition Facility Type Home Met with patient and discussed discharge planning, Pt is a 23 y.o., female with possible pn eumonia. Pt baseline is independent, lives alone, but has support. Patient's PCP is: Tien Nicohlson Patient's insurance: Medicare/Medicaid Coverage concerns: none Medication coverage/concerns: none Rx Bedside Delivery: Community resources utilized / needed: Dialysis M/W/F @ [facility] Assistance in transportation: pov w/friends [...] Date of Service: 07/20/18 0850 Status: Signed Consulting Intern: KRISHNA Nice (Advanced Registered Nurse Practitioner) [facility] Service: Radiology Progress Note Patient [...] 07/20/18655 Date of Service: 07/20/18654 Status: Signed Consulting Intern: Nereida Edwards RN (Registered Nurse) VS stable. [...] 07/19/181925 Date of Service: 07/19/181925 Status: Signed Consulting Intern: Francesca Bustos RN (Registered Nurse) No significant [...] Notes by Antonio Pabon MD at 07/19/18 4715 Author: Antonio Pabon MD Service: Nephrology Author Type: Physician Filed: 07/19/18 7337 Date of Service: 07/19/181349 Status: Signed Consulting Intern: Antonio Pabon MD (Physician) [facility] Service: NEPHROLOGY Dialysis Note Dara Louise 23 y.o. [phone] [id number] female [facility] Day: LOS: 0 days 23-year-old female with [...] AV FISTULA; Surgeon: Rik Simon MD; Location: [facility] MA[facility] OR; Service: Vascula r; Laterality: Left; cephalic AV FISTULA REPAIR Left 03/07/2014 Procedure: AV FISTULA - GRAFT REPAIR/REVISION; Surgeon: Rik Simon MD; Location: [facility]; Service: Vascular; Laterality: Left; DECLOT GRAFT Left 03/07/2014 Procedure: GRAFT - DECLOT; Surgeon: Rik Simon MD; Location: [facility] OR; Service: Vas cular; Laterality: Left; DIALYSIS FISTULA CREATION N/A 04/08/2014 Procedure: DIALYSIS CATHETER - INSERTION; Surgeon: Rik Simon MD; Location: [facility] OR ; Service: Vascular; Laterality: N/A; tunneled catheter LAPAROSCOPIC PERITONEAL DIALYSIS CATHETER INSERTION x2 LAPAROSCOPIC PERITONEAL DIALYSIS CATHETER INSERTION Right 07/2013 current dialysis access MWF dialysis RENAL BIOPSY RENAL BIOPSY Left 2003 SUPERFICIALIZATION OF AV FISTULA Left 06/24/2014 Procedure: AV FISTULA - SUPERFICIALIZATION; Surgeon: Rik Simon MD; Location: [facility] OR; Service: Vascular; Laterality: Left; [...] on file Social History Narrative Lives in [facility], 2 wks ago fell at [...] Amit Sign Date/Ti me: 07/19/2018 9:13 AM Patient's [...] earlier and charting completed later Dictation software, kapturem, used which may contain error for similar [...] Date of Service: 07/19/18 1020 Status: Signed Consulting Intern: Francesca Bustos RN (Registered Nurse) No significant [...] Date of Service: 07/19/18 0801 Status: Addendum Consulting Intern: Sotero Reinoso MD (Physician) Related Notes: Original Note by Sotero Reinoso MD (Physician) filed at 07/19/18 1424 [facility] Service: Hospitalist Progress Note Hospital Day: LOS: 0 days 23-year-old female with an extensive past medical history of IgA vasculitis, end-stage abdiel l disease on hemodialysis Monday and Monday (type proof reproducer Dr. Anguiano) complicated with thrombosis of vascular dialysis stent on Plavix, hypertension, asthma, chronic combine d heart failure, severe pulmonary hypertension, cor pulmonale, moderate mitral valve regurgi tation, severe tricuspid regurgitation and other chronic comorbidities who was discharged on 05/2018 from [facility] with bilateral pleural effusions and ascites status post thoracentesis 1.5 L removed transudative and 4 L ascitic fluid removed who presents to [facility] ER from [facility] ER for sepsis likely secondary to [...] -Hemodynamically stable except for tachycardia. -Noted at [facility] the patient was febrile with a [...] The patient does follow up with outpatient home insurance agent (Dr. Mahmood) patient is tentative ly and [...] 07/19/18129 Date of Service: 07/19/18129 Status: Signed Consulting Intern: Jae Gutierres RPH (Pharmacist) Renal Dosing Monitoring: [...] + + + | Red Blood | 3.15 (L) | 3.70 - 5.10 | EXTERNAL | | | Cells | | M/uL | LAB | | | Counted | | | | | + + + + + + | Hemoglobin | 11.7 | 11.3 - 15.5 | [...] EXTERNAL | | | | performed at [facility];[address] | | LAB | | | | [address];[place] | | | | | | [address] | | | | + + + [...] | | | | | performed at [facility];[address] | | | | | | [facility];[place], [place] | | | | | | [address] | | | | + + + [...] + +---------+ + + External Lab: CBC (07/23/2018 5:32 AM PDT) + + + [...] + + + | Red Blood | 3.21 (L) | 3.70 - 5.10 | EXTERNAL | | | Cells | | M/uL | LAB | | | Counted | | | | | + + + + + + | Hemoglobin | 11.5 | 11.3 - 15.5 | [...] | | | | | performed at [facility];[address] | | | | | | [address];[place], [place] | | | | | | [address] | | | | + + + [...] | | | | | [place] [address] | | | | + + + [...] | | | | | performed at [facility], [address] | | | | | | [facility], | | | | | | [place] [address] | | | | + + + [...] | EXTERNAL LAB | | not a utilization management nurse validated sample type for this method. No reference | | | ranges have been established. Testing performed at [facility], [address] | | | [place] [address] FLUID TP SOURCE | | | THORACENTESIS Testing performed at [facility];[address] | | | [place] [address] | | + + + + +---------+ [...] EXTERNAL LAB | | is not a utilization management nurse validated sample type for this method. No | | | reference ranges have been established. Testing performed at [facility], | | | [address] [place] [address] | | + + + + +---------+ [...] EXTERNAL LAB | | Testing performed at [facility];[address] [facility];[place] [address] | | + + + + +---------+ [...] EXTERNAL | | | | performed at [facility];[address] | | LAB | | | | [address];[place], [place] | | | | | | [address] | | | | + + + [...] EXTERNAL | | | | performed at [facility];[address] | | LAB | | | | [address];[place], [place] | | | | | | [address] | | | | + + + [...] with arms on the | | | [id number] table. Ultrasound was utilized to tk an [...] reviewed | | | by radiologist Dr. Iuliano, and revealed no pneumothorax. The | | [...] | | | possibility of "sound alike" casino accountant errors, addition and/or | | | deletions may occur. If there is any question about this report | | | please contact the author of the report. | | + + + + + | Procedure Note | + + | Cedric, Rad Conversion - 10/16/2018 9:43 PM PDT PROCEDUREUltrasound-guided [...] at the bedside with arms on the [id number] | | table. Ultrasound was utilized to [...] recognition system. The possibility of "sound alike" casino accountant errors, | | addition and/or deletions may [...] system. The possibility of "sound a like" casino accountant errors, addition and/or deletions may occur. If there is any question a bout this report please contact the author of the report. | | | | | + + External Lab: [facility]AK[facility]ER (07/21/2018 6:00 AM PDT) + + +---- + [...] + + + | Red Blood | 3.00 (L) | 3.7 0 - 5.10 | EXTERNAL | | | Cells | | M/u L | LAB | | | Counted | | | | | + + +---- + + + | Hemoglobin | 11.0 (L) | 11. 3 - [...] | | | | | | at [facility], [address] | | | | | | [facility] [employer], | | | | | | [place] [address] | | | | | |Testing performed at [facility], [address] [facility], [place] [address] | | | | | | | [...] | | | | | performed at [facility], [address] | | | | | | [facility], | | | | | | [place] [address] | | | | + + + [...] EXTERNAL | | | | performed at [facility];[address] | mmol/L | LAB | | | | [address];[place], [place] | | | | | | [address] | | | | + + + [...] | | Signed by: Eliza Bustos, Quang Olivares Date/Time: 07/20/2018 11:43 AM | | + [...] + + | Cedric Rad Conversion - 10/16/2018 9:43 PM PDT [...] | | | Patient | performed at [facility];[address] | | LAB | | | | [address];[place], [place] | | | | | | [address] | | | | + + + [...] | | | | | performed at [facility] | | | | | | [address];[place], [place] | | | | | | [address] | | | | + + + + + + + + | Specimen | + + | | + + + +---------+ + + | Performing | Address | City/State/Zipcode | Phone Number | | Organization | | | | + +---------+ + + | EXTERNAL LAB | | | | + +---------+ + + External Lab: CBC (07/20/2018 6:25 AM PDT) + + + [...] + + + | Red Blood | 3.57 (L) | 3.70 - 5.10 | EXTERNAL | | | Cells | | M/uL | LAB | | | Counted | | | | | + + + + + + | Hemoglobin | 12.8 | 11.3 - 15.5 | [...] | | | Estimate | performed at [facility];[address] | | LAB | | | | [address];[place] | | | | | | [address] | | | | + + + [...] | | | | | performed at [facility];[address] | | | | | | [facility];[place], [place] | | | | | | [address] | | | | + + + [...] at | | | | | | [facility];[address] [place] [address] | | | | | | [facility];[place] [address] | | | | + + + [...] | lymph nodes, unchanged. Signed by: Eliza Lenz, Brian Sign Date/Time: | | | 07/19/2018 9:13 [...] nodes, unchanged. | | Signed by: Eliza Lenz, Brian | | Sign Date/Time: 07/19/2018 9:13 AM [...] | | | | | performed at [facility];[address] | | | | | | [facility];[place], [place] | | | | | | [id number] ON 07/19 | | | | | [...] at | | | | | | [facility];[address] [facility] | | | | | | [facility];[place] [address] | | | | + + + [...] + + + | Red Blood | 3.20 (L) | 3.7 0 - [...] | | | | | | at [facility], [address] | | | | | | [facility], | | | | | | [place] [address] | | | | | |Testing performed at [facility], [address] [place] [address] | | | | | | | [...] EXTERNAL | | | | performed at [facility], [address] | | LAB | | | | [address], | | | | | | [place] [address] | | | | + + + [...] EXTERNAL | | | | performed at [facility], [address] | | LAB | | | | [address], | | | | | | [place], [place] [address] | | | | + + + [...] | | | | | performed at [facility], [address] | | | | | | [facility], | | | | | | [place] [address] | | | | + + + + + + + + | Specimen | + + | Blood specimen | | (specimen) | + + + +---------+ + + | Performing | Address | City/State/Zipcode | Phone Number | | Organization | | | | + +---------+ + + | EXTERNAL LAB | | | | + +---------+ + + MRSA NAAT 07/19/2018 1:34 AM PDT) + + | Specimen | + + | | + + + + + | Narrative | Performed At | + + + | SOURCE NARES(NOSE) MRSA | EXTERNAL LAB | | PCR NEGATIVE Testing | | | performed at [facility];[address] [place] [address];[place] [address] | | + + + + +---------+ [...] Methodology Testing performed at | | | [facility], [address] [place] [address] | | + + + + +---------+ [...] EXTERNAL | | | | performed at [facility];[address] | mmol/L | LAB | | | | [address];[place] | | | | | | [address] | | | | + + + [...] | | | | | | at [facility];[address] [place] [address] | | | | | | Blvd;[place] [address] | | | | + + + [...] at | | | | | | [facility];[address] [place] [address] | | | | | | [facility];[place] [address] | | | | + + + [...] | | | QUALITATIVE | performed at [facility] | | LAB | | | | [address];[place] | | | | | | [address] | | | | + + + [...]
--- OUTSIDE RECORDS SUMMARY | ~2019-07-14 | XMS | Encounter Summary ---
Demographics + + + | Address | [address] | | | [place] [address] | + + + | Home Phone [...] Author | [facility] | | | and [place] | + + + | Organization | [facility] | | [...] Team Providers + +------+ + | Care Stemmer Machine Name | Role | Phone | [...] + + | 12/19/ | Telephone | [facility] | George Torres RN | Congestive Heart | | 2019 | | [address] | | Failure (Reviewed | | | | [place], [place] | | for CHF Quality | | | | [address] | | Measures) | | | | [phone] | | | +--------+ + + + [...]
--- OUTSIDE RECORDS SUMMARY | ~2019-07-14 | XMS | Encounter Summary ---
Demographics + + + | Address | [address] | | | [place] [address] | + + + | Home Phone [...] + + | Author | [facility] | | | and [place] | + + + | Organization | [facility] | | | and [place] [...] Providers + +------+ + | Care Campus Dean Name | Role | Phone | + +------+ + PCP | Unavailable | + +------+ + Encounter Details +--------+ + + + + | Date | Type | Department | Care Team | Description | +--------+ + + + + | 05/29/ | Hospital | [facility] | Conversion | End stage renal | | 2014 | Encounter | CENTER CV INTRA OP | Transaction, | disease (HCC) | | | | [address] | Provider Unknown | | | | | [place], [place] | [phone] | | | | | [address] | | | | | | [phone] | Natashakirit Darryn, | | | | | | MD [address] | | | | | | [place], [place] | | | | | | [address] | | | | | | | [...] EXTERNAL LAB | | Testing performed at [facility];[address] [place] [address];[place] [address] MRSA PCR | | | NEGATIVE Testing performed at | | | [facility];[address] [place] [address];[place] [address] | | + + + + +---------+ [...]
--- OUTSIDE RECORDS SUMMARY | ~2019-07-14 | XMS | Encounter Summary ---
Demographics + + + | Address | [address] | | | [place] [address] | + + + | Home Phone [...] | Author | [facility] | | | and [place] | + + + | Organization | [facility] | | [...] Team Providers + +------+ + | Care Fruit Loader Name | Role | Phone | [...] NEPHROLOGY [address] | M, DO [address] | | | | | [address] | [address] | | | | | [place], [place] | [place], [place] | | | | | [address] | [address] | | | | | [phone] | | | +--------+ + + + [...] Camp's progress note from 12/30/[address] [facility] Nephrology (fx: [phone]) on 01/20/14. documented in this encounter Plan of Treatment Not on filedocumented as of this encounter Visit Diagnoses Not on filedocumented in this encounter"
--- OUTSIDE RECORDS SUMMARY | ~2019-07-14 | XMS | Encounter Summary ---
Demographics + + + | Address | [address] | | | [place] [address] | + + + | Home Phone [...] | Author | [facility] | | | and [place] | + + + | Organization | [facility] | | [...] Team Providers + +------+ + | Care Cream Ripener Name | Role | Phone | + [...] [address] | renal disease) ([facility]) | | | | [address] | [place] | (Primary Dx) | | | | [place], [place] | [place], [place] | | | | | [address] | [address] | | | | | [phone] | | | +--------+ + + + [...]
--- OUTSIDE RECORDS SUMMARY | ~2019-07-14 | XMS | Encounter Summary ---
Demographics + + + | Address | [address] | | | [place] [address] | + + + | Home Phone [...] | | | | | [place] [address] | | + + + + + | Thania Mallory | ECON | [address] | | | | | [place] [address] | | + + + + + | Deidra Weldon | ECON | [address] | | | | | [place] | | | | | [address] | | + + + + + Care Team Providers + +------+ + | Care Furnace Clerk Name | Role | Phone | [...] Shun | | | | | [address] | [facility] | | | | | [place], [place] | [place] [address] | | | | | [address] | [phone] | | | | | | | [...] Denise | | | | | | [place], [place] | | | | | | [address] | | | | | | [phone] | | | | | | | | +--------+ + + + + documented as of this encounter Visit Diagnoses Not on filedocumented in this encounter"
--- OUTSIDE RECORDS SUMMARY | ~2019-07-14 | XMS | Encounter Summary ---
Demographics + + + | Address | [address] | | | [place] [address] | + + + | Home Phone [...] Author | [facility] | | | and [place] | + + + | Organization | [facility] | | | and [place] [...] | | stage renal | [address] | [address] [place] [address] | | | | | disease) | Shun Griffin | [place] | | | | | ([facility]) | [address] | [address] [place] | | | | | Anemia in | [place], [place] | [place] | | | | | ESRD | [address] | [address] Phone: | | | | | (end-stage | Phone: | [phone] | | | | | renal | [phone] | Fax: | | | | | disease) | Fax: | [phone] | | | | | ([facility]) | [phone] | | | | | | Procedures [...] renal | | | | [address] | [place], [address] | disease) ([facility]) | | | | [place], [place] | [place] [facility], [place] | (Primary Dx); ESRD | | | | [address] | [address] | (end stage renal | | | | [phone] | | disease) ([facility]) | [...] Hypertension--from review of her treatment data in [facility] EHR, BP appears stable at her current [...] Will recheck her iron profile next [facility]. Plan: 1. Again, I counseled Dara length [...] Will recheck her in 2 weeks. CC: Peshastin Fina Joy MD, [facility], [facility] signed by Jorje Camp DO at 03/03/2015 11:12 AM PSTdocumented in this encount er Plan of Treatment Not on filedocumented as of this encounter Visit Diagnoses + + | Diagnosis | + + | Anemia in ESRD (end-stage renal disease) ([facility]) - Primary Anemia in chronic kidney | | disease | + + | ESRD (end stage renal disease) ([facility]) End stage renal disease | + + documented in this encounter"
--- OUTSIDE RECORDS SUMMARY | ~2019-07-14 | XMS | Encounter Summary ---
Demographics + + + | Address | [address] | | | [place] [address] | + + + | Home Phone [...] | | | | | [place] [address] | | + + + + + | Thania Mallory | ECON | [address] | | | | | [place] [address] | | + + + + + | Deidra Weldon | ECON | [address] | | | | | [place] | | | | | [address] | | + + + + + Care Team Providers + +------+ + | Care Health Promotion Specialist Name | Role | Phone | + +------+ + | Shahid Caamrgo MD | PCP | | + +------+ [...] | | Transplant Services | MD Emanuel [address] | Update (Evaluation | | | | [address] | [address] | Scheduled) | | | | [address] [place], | [place], [place] | | | | | [place] [address] | [address] | | | | | [phone] | [phone] | | | | | | | [...] Denise | | | | | | [place] | | | | | | [address] | | | | | | [phone] | | | | | | | | +--------+ + + + + documented as of this encounter Visit Diagnoses Not on filedocumented in this encounter"
--- OUTSIDE RECORDS SUMMARY | ~2019-07-14 | XMS | Encounter Summary ---
Demographics + + + | Address | [address] | | | [place] [address] | + + + | Home Phone [...] | Author | [facility] | | | and [place] | + + + | Organization | [facility] [...] Team Providers + +------+ + | Care Acls Specialist Name | Role | Phone | + +------+ + | Jonathan Alonso MD | PCP | | + +------+ + Encounter Details +--------+ + + + + | Date | Type | Department | Care Team | Description | +--------+ + + + + | 10/08/ | Orders Only | [facility] | Provider, | Systolic congestive | | 2019 | | SYSTEM GENERIC OP | [address] | heart failure (HCC) | | | | CONVERSION [address] | [place]. | | | | | [address] [place], [place] | [place] [address] | | | | | [address] | | | | | | [phone] | | | +--------+ + + + [...]
--- OUTSIDE RECORDS SUMMARY | ~2019-07-14 | XMS | Encounter Summary ---
Demographics + + + | Address | [address] | | | [place] [address] | + + + | Home Phone [...] | Author | [facility] | | | and [place] | + + + | Organization | [facility] | [...] Providers + +------+ + | Care Egg Producer Name | Role | Phone | + +------+ + PCP | Unavailable | + +------+ + Encounter Details +--------+ + + + + | Date | Type | Department | Care Team | Description | +--------+ + + + + | 05/29/ | Hospital | [facility] | Conversion | End stage renal | | 2014 | Encounter | CENTER IR INTRA OP | Transaction, | disease (HCC) | | | | [address] | Provider Unknown | | | | | [place], [place] | | | | | | [address] | (Fax) | | | | | [phone] | | | +--------+ + + + [...] 05/29/141653 Date of Service: 05/29/141648 Status: Signed Territory Sales Manager: Mesha Clark RN (Registered Nurse) Discharge criteria [...] Successful | | | placement of a 14.5-Polish dual-lumen 19-cm tunneled hemodialysis | | | catheter with its tip in the upper portion of the right atrium without | | | incidence. 85016, [address], [address], 64684-36 Electronically | | | signed by Darryn [...] jugular vein. 3. Placement of 19 cm, 14.5-Polish | | | dual-lumen tunneled palindrome hemodialysis [...] conscious sedation and | | | independent correction supervision of the conscious sedation was | [...] records. 3. Upper chest radiograph shows dual-lumen, 14.5-Polish, | | | 19-cm, tunneled dialysis catheter [...] | micropuncture needle and exchanged for a 4-Polish micropuncture sheath | | | over a 0.018 wire. Skin in the infraclavicular region was | | | infiltrated with 1% lidocaine and a 5-mm skin incision was made. A | | | 14.5-Polish, dual-lumen, 19-cm tunneled hemodialysis catheter was | | | placed a subcutaneous tunnel using a metallic tunneler. The 4-Polish | | | sheath was exchanged for a 0.035, 3-mm J-wire with its tip in the | | | right atrium under fluoroscopy guidance. The skin and subcutaneous | | | tract was dilated using at 12 and 14-Polish facial dilators. A | | | 15-Polish peel-away sheath was placed over the wire [...] vein.3. Placement of 19 | | cm, 14.5-Polish dual-lumen tunneled palindrome hemodialysis catheter in the [...] maintenance of adequate conscious sedation and independent correction | | supervision of the conscious sedation [...] Upper chest radiograph shows dual-lumen, | | 14.5-Polish, 19-cm, tunneled dialysis catheter with its tip [...] needle and exchanged for | | a 4-Polish micropuncture sheath over a 0.018 wire. Skin in the infraclavicular region | | was infiltrated with 1% lidocaine and a 5-mm skin incision was made. A 14.5-Polish, | | dual-lumen, 19-cm tunneled hemodialysis catheter was placed a subcutaneous tunnel using | | a metallic tunneler. The 4-Polish sheath was exchanged for a 0.035, 3-mm J-wire with | | its tip in the right atrium under fluoroscopy guidance. The skin and subcutaneous tract | | was dilated using at 12 and 14-Polish facial dilators. A 15-Polish peel-away sheath | | was placed over [...] veins.2. Successful placement | | of a 14.5-Polish dual-lumen 19-cm tunneled hemodialysis catheter with its tip in the | | upper portion of the right atrium without incidence. 66682, 85022, 99623, 14211-31 | | | |2. Successful placement of a 14.5-Polish dual-lumen 19-cm tunneled hemodialysis catheter w ith its tip in the upper portion of the right atrium without incidence. | | | |[address], [address], 76926, 01731-43 | | | | | + + documented in this encounter Visit Diagnoses + + | Diagnosis | + + | End stage renal disease (HCC) End stage renal disease | + + documented in this encounter"
--- OUTSIDE RECORDS SUMMARY | ~2019-07-14 | XMS | Encounter Summary ---
Demographics + + + | Address | [address] | | | [place] [address] | + + + | Home Phone [...] | Author | [facility] | | | and Josephana | + + + | Organization | [facility], [...] Team Providers + +------+ + | Care Janitorial Account Manager Name | Role | Phone | + +------+ + PCP | Unavailable | + +------+ + Encounter Details +--------+ + + + + | Date | Type | Department | Care Team | Description | +--------+ + + + + | 06/12/ | Hospital | [facility] | Conversion | | | 2015 | Encounter | [facility] | Transaction, | | | | | CLINIC [address] | Provider Unknown | | | | | [place], [place] | [phone] | | | | | [address] | | | | | | [phone] | | | +--------+ + + + [...] | | | Patient | performed at [facility];[address] | | LAB | | | | [place] | | | | | | [address] | | | | + + + [...] | | | | | performed at [facility];[address] | | | | | | [facility];[place], [place] | | | | | | [address] | | | | + + + [...] EXTERNAL | | | | performed at [facility], [address] | K/uL | LAB | | | | [place], | | | | | | [place] [address] | | | | + + + + + + | Red Blood | 3.83Comment: Testing | 3.70 - 5.10 | EXTERNAL | | | Cells | performed at [facility], [address] | M/uL | LAB | | | Counted | [place], | | | | | | [place] [address] | | | | + + + + + + | Hemoglobin | 13.6Comment: Testing | 11.3 - 15.5 | EXTERNAL | | | | performed at [facility], [address] | g/dL | LAB | | | | [address], | | | | | | [place] [address] | | | | + + + + + + | Hematocrit, | 40.5Comment: Testing | 34.0 - 46.0 % | EXTERNAL | | | POC | performed at [facility], [address] | | LAB | | | | [place] [address], | | | | | | [place] [address] | | | | + + + + + + | MCV | 105.8 (H)Comment: | 80.0 - 100.0 fl | EXTERNAL | | | | Testing performed at | | LAB | | | | [facility], [address] | | | | | | [place] | | | | | | [address] | | | | + + + + + + | MCH | 35.6 (H)Comment: Testing | 27.0 - 34.0 pg | EXTERNAL | | | | performed at [facility], [address] | | LAB | | | | [address], | | | | | | [place] [address] | | | | + + + + + + | MCHC | 33.6Comment: Testing | 32.0 - 35.5 | EXTERNAL | | | | performed at [facility], [address] | g/dL | LAB | | | | [address], | | | | | | [place] [address] | | | | + + + + + + | RDW-CV | 50.3Comment: Testing | 37 - 53 fl | EXTERNAL | | | | performed at [facility], [address] | | LAB | | | | [address], | | | | | | [place] [address] | | | | + + + + + + | Platelet | 170Comment: Testing | 150 - 400 K/uL | EXTERNAL | | | Count | performed at [facility], [address] | | LAB | | | Plasma | [address], | | | | | | [place] [address] | | | | + + + + + + | MPV | 9.5Comment: Testing | fl | EXTERNAL | | | | performed at [facility], [address] | | LAB | | | | [address], | | | | | | [place] [address] | | | | + + + + + + | Differentia | AUTOMATEDComment: | | EXTERNAL | | | l Type | Testing performed at | | LAB | | | | [facility], [address] | | | | | | [place] | | | | | | [address] | | | | + + + + + + | % Segmented | 61.53Comment: Testing | % | EXTERNAL | | | | performed at [facility], [address] | | LAB | | | Neutrophils | [address], | | | | | | [place] [address] | | | | + + + + + + | % | 26.38Comment: Testing | % | EXTERNAL | | | Lymphocytes | performed at [facility], [address] | | LAB | | | | [place], | | | | | | [place] [address] | | | | + + + + + + | % Monocytes | 8.30Comment: Testing | % | EXTERNAL | | | | performed at [facility], [address] | | LAB | | | | [address], | | | | | | [place] [address] | | | | + + + + + + | % | 3.19Comment: Testing | % | EXTERNAL | | | Eosinophils | performed at [facility], [address] | | LAB | | | | [address], | | | | | | [place] [address] | | | | + + + + + + | % Basophils | 0.60Comment: Testing | % | EXTERNAL | | | | performed at [facility], [address] | | LAB | | | | [address], | | | | | | [place], [place] [address] | | | | + + + + + + | Absolute | 5.44Comment: Testing | 1.90 - 7.40 | EXTERNAL | | | Segmented | performed at [facility], [address] | K/uL | LAB | | | Neutrophils | [address], | | | | | | [place] [address] | | | | + + + + + + | Absolute | 2.33Comment: Testing | 1.00 - 3.90 | EXTERNAL | | | Lymphocytes | performed at [facility], [address] | K/uL | LAB | | | | [address], | | | | | | [place] [address] | | | | + + + + + + | Absolute | 0.74Comment: Testing | 0.00 - 0.80 | EXTERNAL | | | Monocytes | performed at [facility], [address] | K/uL | LAB | | | | [address], | | | | | | [place] [address] | | | | + + + + + + | Absolute | 0.28Comment: Testing | 0.00 - 0.50 | EXTERNAL | | | Eosinophils | performed at [facility], [address] | K/uL | LAB | | | | [address], | | | | | | [place] [address] | | | | + + + + + + | Absolute | 0.05Comment: Testing | 0.00 - 0.10 | EXTERNAL | | | Basophils | performed at [facility], [address] | K/uL | LAB | | | | [address], | | | | | | [place] [address] | | | | + + + [...] | | | | | [place] [address] | | | | + + + + + + | K | 3.8Comment: Testing | 3.5 - 4.9 | EXTERNAL | | | | performed at [facility], [address] | mmol/L | LAB | | | | [place], | | | | | | [place] [address] | | | | + + + + + + | Cl | 94 (L)Comment: Testing | 99 - 109 mmol/L | EXTERNAL | | | | performed at [facility], [address] | | LAB | | | | [address], | | | | | | [place] [address] | | | | + + + + + + | CO2 | 31Comment: Testing | 23 - 32 mmol/L | EXTERNAL | | | | performed at [facility], [address] | | LAB | | | | [address], | | | | | | [place] [address] | | | | + + + + + + | Anion Gap | 13Comment: Testing | 5 - 20 mmol/L | EXTERNAL | | | | performed at [facility], [address] | | LAB | | | | [address], | | | | | | [place] [address] | | | | + + + + + + | Glucose, | 95Comment: Testing | 65 - 99 mg/dL | EXTERNAL | | | Fasting | performed at [facility], [address] | | LAB | | | | [address], | | | | | | [place] [address] | | | | + + + + + + | BUN | 40 (H)Comment: Testing | 8 - 25 mg/dL | EXTERNAL | | | | performed at [facility], [address] | | LAB | | | | [address], | | | | | | [place] [address] | | | | + + + + + + | Creatinine | 7.24 (H)Comment: Testing | 0.50 - 1.00 | EXTERNAL | | | | performed at [facility], [address] | mg/dL | LAB | | | | [address], | | | | | | [place] [address] | | | | + + + + + + | BUN/Creatin | 6Comment: Testing | | EXTERNAL | | | ine Ratio | performed at [facility], [address] | | LAB | | | | [address], | | | | | | [place] [address] | | | | + + + + + + | Calcium | 10.2Comment: Testing | 8.5 - 10.5 | EXTERNAL | | | | performed at [facility], [address] | mg/dL | LAB | | | | [address], | | | | | | [place] [address] | | | | + + + [...] | | | | | | [place] [address] | | | | + + + [...] EXTERNAL LAB | | Testing performed at [facility];[address] [place] [address];[place] [address] MRSA PCR | | | NEGATIVE Testing performed at | | | [address];[place] [address] | | + + + + +---------+ + + | Performing | Address | City/State/Zipcode | Phone Number | | Organization | | | | + +---------+ + + | EXTERNAL LAB | | | | + +---------+ + + documented in this encounter Visit Diagnoses Not on filedocumented in this encounter"
--- OUTSIDE RECORDS SUMMARY | ~2019-07-14 | XMS | Encounter Summary ---
Demographics + + + | Address | [address] | | | [place] [address] | + + + | Home Phone [...] Author | [facility] | | | and Josephana | + + + | Organization | [facility] | | | and [...] Team Providers + +------+ + | Care Portable Pinch Riveter Name | Role | Phone | + +------+ + PCP | Unavailable | + +------+ + Reason for Visit + + + | Reason | Comments | + + + | Medication Refill | | + + + Encounter Details +--------+--------+ + + + | Date | Type | Department | Care Team | Description | +--------+--------+ + + + | 03/15/ | Refill | [facility] [place] | Jorje Camp | Medication Refill | | 2016 | | NEPHROLOGY [address] | M, DO [address] | | | | | [address] | [place] | | | | | [place], [place] | [place], [place] | | | | | [address] | [address] | | | | | [phone] | | | +--------+--------+ + + + [...]
--- OUTSIDE RECORDS SUMMARY | ~2019-07-14 | XMS | Encounter Summary ---
Demographics + + + | Address | [address] | | | [place] [address] | + + + | Home Phone [...] | Author | [facility] | | | and Josephana | + + + | Organization | [facility] | [...] Team Providers + +------+ + | Care Harmonica Maker Name | Role | Phone | [...] | | stage renal | [address] | [address] [place] [address] | | | | | disease) | Shun [place] | [place] | | | | | ([facility]) | [address] | [address] [place] | | | | | Anemia in | [place], [place] | [place] | | | | | ESRD | [address] | [address] Phone: | | | | | (end-stage | Phone: | [phone] | | | | | renal | [phone] | Fax: | | | | | disease) | Fax: | [phone] | | | | | ([facility]) | [phone] | | | | | | Procedures | | | | | | | NE OFFICE | | | | | | [...] M, DO [address] | renal disease) ([facility]) | | | | [address] | [place], [address] | (Primary Dx) | | | | [place], [place] | [place], [place] | | | | | [address] | [address] | | | | | [phone] | | | +--------+ + + + [...] week from records in [facility], per [facility] Nurse Elisabeth Portillo RN. Her BP, PO4, and PTH are consisently high. 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 Has been counseled in [facility] regarding risks of calciphylaxis. 4. 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 5. Will recheck her in 2 weeks. : [place] Fina Alonso MD, PhD documented in thi s encounter Plan of Treatment Not on filedocumented as of this encounter Visit Diagnoses + + | Diagnosis | + + | ESRD (end stage renal disease) (HCC) - Primary End stage renal disease | + + documented in this encounter"
--- OUTSIDE RECORDS SUMMARY | ~2019-07-14 | XMS | Encounter Summary ---
Demographics + + + | Address | [address] | | | [place] [address] | + + + | Home Phone [...] Author | [facility] | | | and Josephana | + + + | Organization | [facility] | [...] Providers + +------+ + | Care Drafter Electromechanical Name | Role | Phone | + +------+ + PCP | Unavailable | + +------+ + Encounter Details +--------+ + + + + | Date | Type | Department | Care Team | Description | +--------+ + + + + | 10/28/ | Hospital | [facility] | Conversion | ESRD (end stage | | 2015 | Encounter | CENTER CV INTRA OP | Transaction, | renal disease) (HCC) | | | | [address] | Provider Unknown | | | | | [place], [place] | [phone] | | | | | [address] | | | | | | [phone] | Colten Hutchins MD | | | | | | [address] | | | | | | [place], [place] | | | | | | [address] | | | | | | | [...] COMPARISON STUDIES: 08/21/2014 | | | PRIMARY SHOE DESIGNER: Colten Hutchins MD, PhD, RPVI OPERATIONS: 1. | | | Left upper [...] to the area of stenosis. A 4 Lao | | | sheath was placed. Patient [...] | perianastomotic stenoses. COMPARISON STUDIES: 08/21/2014 PRIMARY SHOE DESIGNER: Colten | | MD Liset, PhD, [facility] OPERATIONS:1. Left upper extremity fistulogram2. Ultrasound-guided [...] to the area of stenosis. A 4 Lao sheath was placed. Patient was | | [...] COMPARISON STUDIES: 08/21/2014 | | | PRIMARY SHOE DESIGNER: Colten Hutchins MD, PhD, [facility] OPERATIONS: 1. | | | Left [...] to the area of stenosis. A 4 Lao | | | sheath was placed. Patient [...] | perianastomotic stenoses. COMPARISON STUDIES: 08/21/2014 PRIMARY SHOE DESIGNER: Colten | | MD Liset, PhD, RPVI [...] to the area of stenosis. A 4 Lao sheath was placed. Patient was | | [...] | | | | performed at [facility];[address] | [address] | LAB | | | | [address];[place] | | | | | | [address] | | | | + + + + + + | Red Blood | 3.88Comment: Testing | 3.70 - 5.10 | EXTERNAL | | | Cells | performed at [facility];[address] | M/uL | LAB | | | Counted | [address];[place] | | | | | | [address] | | | | + + + + + + | Hemoglobin | 14.1Comment: Testing | 11.3 - 15.5 | EXTERNAL | | | | performed at [facility];[address] | g/dL | LAB | | | | [address];[place] | | | | | | [address] | | | | + + + + + + | Hematocrit, | 41.4Comment: Testing | 34.0 - 46.0 % | EXTERNAL | | | POC | performed at [facility];[address] | | LAB | | | | [address];[place] | | | | | | [address] | | | | + + + + + + | MCV | 106.7 (H)Comment: | 80.0 - 100.0 fl | EXTERNAL | | | | Testing performed at | | LAB | | | | [facility];[address];[place] [address] | | | | + + + + + + | MCH | 36.4 (H)Comment: Testing | 27.0 - 34.0 pg | EXTERNAL | | | | performed at [facility];[address] | | LAB | | | | [address];[place] | | | | | | [address] | | | | + + + + + + | MCHC | 34.1Comment: Testing | 32.0 - 35.5 | EXTERNAL | | | | performed at [facility];[address] | g/dL | LAB | | | | [address];[place] | | | | | | [address] | | | | + + + + + + | RDW-CV | 54.7 (H)Comment: Testing | 37 - 53 fl | EXTERNAL | | | | performed at [facility];[address] | | LAB | | | | [address];[place] | | | | | | [address] | | | | + + + + + + | Platelet | 168Comment: Testing | 150 - 400 K/uL | EXTERNAL | | | Count | performed at [facility];[address] | | LAB | | | Plasma | [address];[place] | | | | | | [address] | | | | + + + + + + | MPV | 9.1Comment: Testing | fl | EXTERNAL | | | | performed at [facility];[address] | | LAB | | | | [address];[place] | | | | | | [address] | | | | + + + [...] | | | | performed at [facility] | | | | | | [facility];[place], [place] | | | | | | [address] | | | | + + + [...] | | | | performed at [facility];[address] | mmol/L | LAB | | | | [address];[place] | | | | | | [address] | | | | + + + + + + | K | 3.9Comment: Testing | 3.5 - 4.9 | EXTERNAL | | | | performed at [facility];[address] | mmol/L | LAB | | | | [address];[place] | | | | | | [address] | | | | + + + + + + | Cl | 97 (L)Comment: Testing | 99 - 109 mmol/L | EXTERNAL | | | | performed at [facility];[address] | | LAB | | | | [address];[place] | | | | | | [address] | | | | + + + + + + | CO2 | 34 (H)Comment: Testing | 23 - 32 mmol/L | EXTERNAL | | | | performed at [facility];[address] | | LAB | | | | [address];[place] | | | | | | [address] | | | | + + + + + + | Anion Gap | 12Comment: Testing | 5 - 20 mmol/L | EXTERNAL | | | | performed at [facility];[address] | | LAB | | | | [address];[place] | | | | | | [address] | | | | + + + + + + | Glucose, | 87Comment: Testing | 65 - 99 mg/dL | EXTERNAL | | | Fasting | performed at [facility];[address] | | LAB | | | | [address];[place] | | | | | | [address] | | | | + + + + + + | BUN | 23Comment: Testing | 8 - 25 mg/dL | EXTERNAL | | | | performed at [facility];[address] | | LAB | | | | [address];[place] | | | | | | [address] | | | | + + + + + + | Creatinine | 6.4 (H)Comment: Testing | 0.50 - 1.00 | EXTERNAL | | | | performed at [facility];[address] | mg/dL | LAB | | | | [address];[place] | | | | | | [address] | | | | + + + + + + | BUN/Creatin | 4Comment: Testing | | EXTERNAL | | | ine Ratio | performed at [facility];[address] | | LAB | | | | [address];[place] | | | | | | [address] | | | | + + + + + + | Calcium | 9.5Comment: Testing | 8.5 - 10.5 | EXTERNAL | | | | performed at [facility];[address] | mg/dL | LAB | | | | [address];[place] | | | | | | [address] | | | | + + + + + + | Estimated | CALCULATION NOT | mL/min/1.73m2 | EXTERNAL | | | GFR | PERFORMED. RESULT NOT | | LAB | | | | VALID IF AGE LT 20 | | | | | | YEARS.Comment: Testing | | | | | | performed at [facility];[address] | | | | | | [address];[place] | | | | | | [address] | | | | + + + [...]
--- OUTSIDE RECORDS SUMMARY | ~2019-07-14 | XMS | Encounter Summary ---
Demographics + + + | Address | [address] | | | [place] [address] | + + + | Home Phone [...] Author | [facility] | | | and Josephana | + + + | Organization | [facility] | | | and [...] Providers + +------+ + | Care Litigation Claim Representative Name | Role | Phone | [...] NEPHROLOGY [address] | M, DO [address] | | | | | [address] | [place], [address] | | | | | [place], [place] | [place], [place] | | | | | [address] | [address] | | | | | [phone] | | | +--------+ + + + [...] in her mid left upper arm AVF. OIM ARCHITECT today = 230 mmHg. In view of this will start her on ASA 81 mg, QD, and Plavix 75 mg, daily for prevention of AVF thrombosis, given the former indwelling stent. She was called by entry engineerElisabeth to begin above. : [facility] [employer] [facility] documented in this encounter Plan of Treatment Not on filedocumented as of this encounter Visit Diagnoses Not on filedocumented in this encounter
--- OUTSIDE RECORDS SUMMARY | ~2019-07-14 | XMS | Encounter Summary ---
Demographics + + + | Address | [address] | | | [place] [address] | + + + | Home Phone [...] Author | [facility] | | | and Josephana | + + + | Organization | [facility] | | [...] Providers + +------+ + | Care Hand I Blocker Name | Role | Phone | + [...] | | | | | | | [place] | | | | | | | [...] + + | 02/24/ | Anesthesia | [facility] | Celso Dacosta | Obesity (BMI | | 2013 | Event | MED CTR OR INTRA OP | MD Douglas [address] | 30.0-34.9) (Primary | | | | [address] | [address] [place] [address] | Dx) | | | | [place] | [address] | | | | | [address] | | | | | | [phone] | | | +--------+ + + + [...] +----+---+ + + | | 0 | [place] | | | | 7 | 43-degrees [...] +----+---+ + + | | 1 | [place] off | | | | 0 | [...] | [READ | (present upon arrival to [facility]); | 02/24/14 1045 by | 05/28/18 [...] | [READ | (present upon arrival to [facility]); | 02/24/14 1049 by | 05/28/18 [...] | | | | | PRN, Starting 12/22/14 at | | AM PST | | [...] | | | | | Anxiety, Starting Mon02/24/14 at | | AM PST | | | | | 0742, Anesthesia Intra-op | | | | | | + +-------+ +------+---+---+ +---+---+ | | | +---+---+ + +-------+ +------+---+---+ | ondansetron (ZOFRAN) injection | Given | 02/25/20 | 4 mg | | | | PRN, Nausea, Vomiting, Starting | | 14 7:50 | | | | | Mon02/24/14 at 0750, Anesthesia | | AM PST | | | | | Intra-op | | | | | | + +-------+ +------+---+---+ +---+---+ | | | +---+---+ + +-------+ +---------+---+---+ | phenylephrine (JERRY-SYNEPHRINE) | Given | 02/25/20 | 100 mcg | | | | 0.1 mg/mL IV syringe PRN, | | 14 9:36 | | | | | Starting Mon02/24/14 at 0756, | | AM PST | [...]
--- OUTSIDE RECORDS SUMMARY | ~2019-07-14 | XMS | Encounter Summary ---
Demographics + + + | Address | [address] | | | [place] [address] | + + + | Home Phone [...] | | | | | [place] [address] | | + + + + + | Thania Mallory | ECON | [address] | | | | | [place] [address] | | + + + + + | Deidra Weldon | ECON | [address] | | | | | [place] | | | | | [address] | | + + + + + Care Team Providers + +------+ + | Care Core Composer Machine Tender Name | Role | Phone [...] Param Iraheta | | | | | ([facility]) | Shun [place] | [facility] | | | | | Procedures | Caro Chan | Children's | | | | | TRANSTHORACI | [place], [place] | [address] | | | | | C | [address] | Floor | | | | | ECHOCARDIOGR | Phone: | [place], [place] | | | | | AM, PEDS | [phone] | [address] | | | | | | Fax: | Phone: | | | | | | [phone] | [phone] | | | | | | | Fax: | | | | | | | [phone] | +--------+--------+ + + + + Reason [...] | Allergic | Sudhakar Castellanos, | Lab [facility] [address] | | | | | conchita | [address] | [facility] [address] | | | | | ([facility]) | Shun Griffin | [place] | | | | | Procedures | Caro Chan | Children's | | | | | TRANSTHORACI | [place], [place] | [address] | | | | | C | [address] | Floor | | | | | ECHOCARDIOGR | Phone: | [place], [place] | | | | | AM, PEDS | [phone] | [address] | | | | | | Fax: | Phone: | | | | | | [phone] | [phone] | | | | | | | Fax: | | | | | | | [phone] | +--------+--------+ + + + + Encounter Details +--------+ + + + + | Date | Type | Department | Care Team | Description | +--------+ + + + + | 12/20/ | Hospital | Pediatric Echo Lab | | | | 2012 | Encounter | at [facility] | | | | | | [facility] | | | | | | [address] | | | | | | [facility] | | | | | | [facility] | | | | | | 8th Floor [place], | | | | | | [place] [address] | | | | | | [phone] | | | +--------+ + + + [...] Denise | | | | | | [place], [place] | | | | | | [address] | | | | | | [phone] | | | | | | | [...]
--- OUTSIDE RECORDS SUMMARY | ~2019-07-14 | XMS | Encounter Summary ---
Demographics + + + | Address | [address] | | | [place] [address] | + + + | Home Phone [...] | Author | [facility] | | | and [place]ana | + + + | Organization | [facility] | | | [...] Team Providers + +------+ + | Care Shear Grinder Operator Helper Name | Role | Phone [...] | | [address] | [place] | | | | | [place], [place] | [place], [place] | | | | | [address] | [address] | | | | | [phone] | | | +--------+ + + + [...]
--- OUTSIDE RECORDS SUMMARY | ~2019-07-14 | XMS | Encounter Summary ---
Demographics + + + | Address | [address] | | | [place] [address] | + + + | Home Phone [...] | | | | | [place] [address] | | + + + + + | Thania Mallory | ECON | [address] | | | | | [place] [address] | | + + + + + | Deidra Weldon | ECON | [address] | | | | | [place] | | | | | [address] | | + + + + + Care Team Providers + +------+ + | Care Field Crop Technical Officer Name | Role | Phone | [...] | | | | | Caro Chan [place], | [place], [place] | | | | | [place] [address] | [address] | | | | | [phone] | [phone] | | | | | | | [...] Denise | | | | | | [place], [place] | | | | | | [address] | | | | | | [phone] | | | | | | | | +--------+ + + + + documented as of this encounter Visit Diagnoses Not on filedocumented in this encounter"
--- OUTSIDE RECORDS SUMMARY | ~2019-07-14 | XMS | Encounter Summary ---
Demographics + + + | Address | [address] | | | [place] [address] | + + + | Home Phone [...] | Author | [facility] | | | and Josephana | + + + | Organization | [facility] | | | and Josephana [...] Providers + +------+ + | Care Water Aerobics Instructor Name | Role | Phone | [...] NEPHROLOGY [address] | MD [address] | | | | | [address] | [address] [place] | | | | | [place], [place] | [place] [address] | | | | | [address] | [phone] | | | | | [phone] | | | +--------+ + + + [...]
--- OUTSIDE RECORDS SUMMARY | ~2019-07-14 | XMS | Encounter Summary ---
Demographics + + + | Address | [address] | | | [place] [address] | + + + | Home Phone [...] Author | [facility] | | | and Josephana | + + + | Organization | [facility] | [...] Providers + +------+ + | Care Senior Java Engineer Name | Role | Phone | + +------+ + PCP | Unavailable | + +------+ + Encounter Details +--------+ + + + + | Date | Type | Department | Care Team | Description | +--------+ + + + + | 02/20/ | Orders Only | [facility] [place] | Amina Hansen, | | | 2014 | | NEPHROLOGY [address] | RN | | | | | [address] | | | | | | [place] | | | | | | [address] | | | | | | [phone] | | | +--------+ + + + [...]
--- OUTSIDE RECORDS SUMMARY | ~2019-07-14 | XMS | Encounter Summary ---
Demographics + + + | Address | [address] | | | [place] [address] | + + + | Home Phone [...] | [facility] | | | and Josephana | + + + | Organization | [facility] | | [...] Team Providers + +------+ + | Care Surveyor Name | Role | Phone | + +------+ + PCP | Unavailable | + +------+ + Encounter Details +--------+ + + + + | Date | Type | Department | Care Team | Description | +--------+ + + + + | 06/11/ | Hospital | [facility] | | | | 2008 - | Encounter | MED CTR OP REHAB | | | | | | [address] | | | | 07/03/ | | [place] [address] | | | | 2008 | | [phone] | | | +--------+ + + + [...]
--- OUTSIDE RECORDS SUMMARY | ~2019-07-14 | XMS | Encounter Summary ---
Demographics + + + | Address | [address] | | | [place] [address] | + + + | Home Phone [...] Author | [facility] | | | and Josephana | + + + | Organization | [facility] [...] Team Providers + +------+ + | Care Tare Worker Name | Role | Phone | [...] | NEPHROLOGY [address] | [address] | | | | | [address] | [address] [place] | | | | | [place], [place] | [place] [address] | | | | | [address] | [phone] | | | | | [phone] | | | +--------+ + + + [...]
--- OUTSIDE RECORDS SUMMARY | ~2019-07-14 | XMS | Encounter Summary ---
Demographics + + + | Address | [address] | | | [place] [address] | + + + | Home Phone [...] | | | | | [place] [address] | | + + + + + | Thania Mallory | ECON | [address] | | | | | [place] [address] | | + + + + + | Deidra Weldon | ECON | [address] | | | | | [place] | | | | | [address] | | + + + + + Care Team Providers + +------+ + | Care Construction Equipment Mechanic Name | Role | Phone | [...] Query) | | | | [address] [place], | [place], [place] | | | | | [place] [address] | [address] | | | | | [phone] | [phone] | | | | | | | [...] [place] | | | | | | [address] | | | | | | [phone] | | | | | | | | +--------+ + + + + documented as of this encounter Visit Diagnoses Not on filedocumented in this encounter"
--- OUTSIDE RECORDS SUMMARY | ~2019-07-14 | XMS | Encounter Summary ---
Demographics + + + | Address | [address] | | | [place] [address] | + + + | Home Phone [...] + | Author | [facility] | | | and Josephana | + + + | Organization | [facility] | | | and Josephana | + + + | Address | Unknown | + + + | Phone | Unavailable | + + + Support + + +---------+ + | Name | Relationship | Address | Phone | + + +---------+ + | Thania Mallory | ECON | Unknown | | + + +---------+ + | Saundra aMllory | ECON | Unknown | | + + +---------+ + Care Team Providers + +------+ + | Care Slasher Name | Role | Phone | + [...] | Procedures | [place], [place] | [place] [address] | | | | | [place] | [address] | Phone: | | | | | ANASTOMOSIS, | Phone: | [phone] | | | | | AV,ANY SITE | [phone] | Fax: | | | | | | Fax: | [phone] | | | | | | [phone] | | +--------+ + + + + [...] | | | | | disease) | [place], [place] | [address] | | | | | ([facility]) | [address] [place] | [place], | | | | | | [place], [place] | [place] [address] | | | | | | [address] | Phone: | | | | | | Phone: | [phone] | | | | | | [phone] | Fax: | | | | | | Fax: | [phone] | | | | | | [phone] | | +--------+ + + + + + Encounter Details +--------+---------+ + + + | Date | Type | Department | Care Team | Description | +--------+---------+ + + + | 12/18/ | Office | [facility] | Blake | End stage renal | | 2013 | Visit | SURGERY [address] | MD Antonieta, FACS [address] | disease (HCC) | | | | [place], [place] | [address] [facility] | (Primary Dx) | | | | [address] | [place] [address] | | | | | [phone] | [phone] | | | | | | | [...] 10:16 AM PST Patient Identification: Dara Lundberg Sihraz 1995 Is a 18 y.o. female , [...] Care ? Shahid Camargo Who is your Administrative Accountant/Kidney Specialist ? Dr. Camp When was the current dialysis access placed? July 2013 at [facility] in [place] What problems are there with the current dialysis access? 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 Patient used to have PD catheter for dialysis 2012--[facility] in [place] . Came out Jul, 2013 . Then got RIGHT IJ catheter. Also got catheter at [facility]. Live in [place]. Go es to [facility] in [place] for dialysis. Now needs AVF. Is RIGHt hand dominant. No pains in hands. 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 Currently on [facility] for kidney transplant. Wants AVF in [...] ed for acceptable candidacy. Will f/u with [facility] Transplant Team. Shahid Cruz Raman's notes were not available to be reviewed in clinic today. PAST MEDICAL HISTORY Past Medical History She has a past medical history of HSP (Henoch-Schonlein purpura) nephritis (HCC) (1987) and ESRD (end stage renal disease) ([facility]). Past Surgical History She Past Surgical History [...] REPORT: PATIENT NAME : Dara Weldon EQUIPMENT: [employer] M-Turbo with 10-5 mHertz probe. INDICATIONS: Dialysis [...] + +--------+ + + | * [facility] General | Outpatient | Routin | End [...]
--- OUTSIDE RECORDS SUMMARY | ~2019-07-14 | XMS | Encounter Summary ---
Demographics + + + | Address | [address] | | | [place] [address] | + + + | Home Phone [...] | | | | | [place] [address] | | + + + + + | Thania Mallory | ECON | [address] | | | | | [place] [address] | | + + + + + | Deidra Weldon | ECON | [address] | | | | | [place] | | | | | [address] | | + + + + + Care Team Providers + +------+ + | Care Critical Care Technician Name | Role | Phone [...] | 06/04/ | Telephone | Clinical | Klesi Martinez, | [facility] Status | | 2014 | | Transplant Services | RN [address] | | | | | [address] | [facility] | | | | | Park [facility], | [place], [place] | | | | | [place] [address] | [address] | | | | | [phone] | | | +--------+ + + + [...] Denise | | | | | | [place], [place] | | | | | | [address] | | | | | | [phone] | | | | | | | | +--------+ + + + + documented as of this encounter Visit Diagnoses Not on filedocumented in this encounter"
--- OUTSIDE RECORDS SUMMARY | ~2019-07-14 | XMS | Encounter Summary ---
Demographics + + + | Address | [address] | | | [place] [address] | + + + | Home Phone [...] + | Author | [facility] | | | and Josephana | + + + | Organization | [facility] | | [...] Providers + +------+ + | Care General Manager Name | Role | Phone | [...] | | | DEPARTMENT [address] [place], | | | | [address] | [place] [address] | | | | | [place], [place] | [phone] | | | | | [address] | | | | | | [phone] | | | +--------+ + + + [...]
--- OUTSIDE RECORDS SUMMARY | ~2019-07-14 | XMS | Encounter Summary ---
Demographics + + + | Address | [address] | | | [place] [address] | + + + | Home Phone [...] | | | | | [place] [address] | | + + + + + | Thania Mallory | ECON | [address] | | | | | [place] [address] | | + + + + + | Deidra Weldon | ECON | [address] | | | | | [place] | | | | | [address] | | + + + + + Care Team Providers + +------+ + | Care Solar Sales Ambassador Name | Role | Phone | + [...] [address] | [facility] | screens) | | | | Park [place], | [place], [place] | | | | | [place] [address] | [address] | | | | | [phone] | | | +--------+ + + + [...] [place] | | | | | | [address] | | | | | | [phone] | | | | | | | | +--------+ + + + + documented as of this encounter Visit Diagnoses Not on filedocumented in this encounter"
--- OUTSIDE RECORDS SUMMARY | ~2019-07-14 | XMS | Encounter Summary ---
Demographics + + + | Address | [address] | | | [place] [address] | + + + | Home Phone [...] | | | | | [place] [address] | | + + + + + | Thania Mallory | ECON | [address] | | | | | [place] [address] | | + + + + + | Deidra Weldon | ECON | [address] | | | | | [place] | | | | | [address] | | + + + + + Care Team Providers + +------+ + | Care Steward/Stewardess Club Car Name | Role | Phone | + [...] Transplant Services | RN [address] [facility] | Update | | | | [address] [facility] | [facility] | | | | | Park [facility], | [place], [place] | | | | | [place] [address] | [address] | | | | | [phone] | | | +--------+ + + + [...] [place] | | | | | | [address] | | | | | | [phone] | | | | | | | | +--------+ + + + + documented as of this encounter Visit Diagnoses Not on filedocumented in this encounter"
--- OUTSIDE RECORDS SUMMARY | ~2019-07-14 | XMS | Encounter Summary ---
Demographics + + + | Address | [address] | | | [place] [address] | + + + | Home Phone [...] | | | | | [place] [address] | | + + + + + | Thania Mallory | ECON | [address] | | | | | [place] [address] | | + + + + + | Deidra Weldon | ECON | [address] | | | | | [place] | | | | | [address] | | + + + + + Care Team Providers + +------+ + | Care Precipitator Name | Role | Phone | + +------+ + | Jonathan Alonso MD | PCP | | + +------+ + Encounter Details +--------+ + + + + | Date | Type | Department | Care Team | Description | +--------+ + + + + | 01/20/ | Hospital | Radiology at [facility] | | | | 2014 | Encounter | [address] | | | | | | [place] | | | | | | [facility], | | | | | | 7th [facility] | | | | | | [place], [place] | | | | | | [address] | | | | | | [phone] | | | +--------+ + + + [...] [place] | | | | | | [address] | | | | | | [phone] | | | | | | | [...] | | | | signed / ALIREZA V | | | | | | EMIL 01/20/2015 | | | | | | 12:23 PM | | | | + + + + + + + + | Specimen | + + | | + + + +---------+ + + | Performing | Address | City/State/Zipcode | Phone Number | | Organization | | | | + +---------+ + + | [facility] DEPARTMENT OF | | | | [...]
--- OUTSIDE RECORDS SUMMARY | ~2019-07-14 | XMS | Encounter Summary ---
Demographics + + + | Address | [address] | | | [place] [address] | + + + | Home Phone [...] | Author | [facility] | | | and Josephana | + + + | Organization | [facility] | [...] Team Providers + +------+ + | Care Cutting Machine Operator Name | Role | Phone [...] | | KIDNEY TRANSPLANT | [address] [place], | | | | | [address] [place] | [place] [address] | | | | | [address] [place], [place] | [phone] | | | | | [address] | | | | | | [phone] | | | +--------+ + + + [...]
--- OUTSIDE RECORDS SUMMARY | ~2019-07-14 | XMS | Encounter Summary ---
Demographics + + + | Address | [address] | | | [place] [address] | + + + | Home Phone [...] | | | | | [place] [address] | | + + + + + | Thania Mallory | ECON | [address] | | | | | [place] [address] | | + + + + + | Deidra Weldon | ECON | [address] | | | | | [place] | | | | | [address] | | + + + + + Care Team Providers + +------+ + | Care Sample Color Maker Name | Role | Phone | [...] | | | MD [address] | [facility] | | | | | | Keven | [place] | | | | | | Hospital | Children's | | | | | | [address] | [address] | | | | | | [address] | floor | | | | | | [place], | [place], [place] | | | | | | [place] | [address] | | | | | | [address] | Phone: | | | | | | Phone: | [phone] | | | | | | [phone] | | | | | | | Fax: | | | | | | | [phone] | | +--------+--------+ + + + + Encounter Details +--------+---------+ + + + | Date | Type | Department | Care Team | Description | +--------+---------+ + + + | 01/20/ | Office | Specialty Clinics | Sudhakar Joy | HSP | | 2015 | Visit | at [facility] [address] | MD Emanuel [address] | (David | | | | [address] | [facility] | purpura) nephritis | | | | [place] | [place], [place] | (Primary Dx); | | | | [facility], | [address] | Allergic purpura- | | | | [facility] | [phone] | MEDICARE 0863; | | | | [place], [place] | | Anemia of chronic | | | | [address] | | kidney failure, | | | | [phone] | | stage 5 (HCC); | | [...] MD Pediatric Nephrology and Hypertension Services [address] [facility] [address] Mail code [facility] [place], [place] [id number] documented in this encounter Plan of Treatment +--------+ + + + + | Date | Type | Specialty | Care Team | Description | +--------+ + + + + | 05/04/ | Hospital | Adult Acute Care | El Starr MD | | | 2022 | Encounter | | [address] | | | | | | [place], [place] | | | | | | [address] | | | | | | [phone] | | | | | | | [...]
--- OUTSIDE RECORDS SUMMARY | ~2019-07-14 | XMS | Encounter Summary ---
Demographics + + + | Address | [address] | | | [place] [address] | + + + | Home Phone [...] | | | | | [place] [address] | | + + + + + | Thania Mallory | ECON | [address] | | | | | [place] [address] | | + + + + + | Deidra Weldon | ECON | [address] | | | | | [place] | | | | | [address] | | + + + + + Care Team Providers + +------+ + | Care Microfilm Equipment Inspector Name | Role | Phone | [...] | purpura | [address] | [facility] [address] | | | | | (HCC) HSP | [address] | | | | | (Amelie | [address] | [place] | | | | | nlein | [place], [place] | Children's | | | | | purpura) | [address] | [facility] 7th | | | | | nephritis | Phone: | Floor | | | | | ([facility]) | [phone] | [place], [place] | | | | | Hemodialysis | Fax: | [address] | | | | | status | [phone] | Phone: | | | | | (HCC) | | [phone] | | | | | Chronic | | Fax: | | | | | kidney | | [phone] | | | | | disease, | | | | | | | stage V | | | | | | | ([facility]) | | | | | | [...] | | 2014 | Encounter | [facility] | | | | | | [facility] | | | | | | [address] [facility] | | | | | | [place] | | | | | | [facility] | | | | | | 8th [facility], | | | | | | [place] [address] | | | | | | [phone] | | | +--------+ + + + [...] Denise | | | | | | [place], [place] | | | | | | [address] | | | | | | [phone] | | | | | | | [...] | e | 1:18 PM | MEDICARE 5714 HSP | procedure are in the | [...] 2:35 PM PST Echocardiography Laboratory | | [address] [facility] | | [place] [address] | | ; | | [id number] | | | | Transthoracic Echocardiogram Report | | | | | | NAME: DARA WELDON Study Date: 01/20/2015 1:18:29 PM | | Order #: [id number] ACC #: [id number] | | | | | | : [...] on 01/20/2015 at 2:35:17 PM | | Guidance And Control System Engineer: YARITZA KLINE RDEDNA | | | | | | cc: | | | | | | Modes utilized | | TTE 97575; Spectral Doppler 78177; Color flow Doppler 49814; | | | | | | | | Final | + + + + + + + | Performing | Address | City/State/Zipcode | Phone Number | | Organization | | | | + + + + + | [facility] | [address] [facility] | [place], [place] | | | CARDIOLOGY | [address] | [address] | | + + + + + [...]
--- OUTSIDE RECORDS SUMMARY | ~2019-07-14 | XMS | Encounter Summary ---
Demographics + + + | Address | [address] | | | [place] [address] | + + + | Home Phone [...] | | | | | [place] [address] | | + + + + + | Thania Mallory | ECON | [address] | | | | | [place] [address] | | + + + + + | Deidra Weldon | ECON | [address] | | | | | [place] | | | | | [address] | | + + + + + Care Team Providers + +------+ + | Care Promotions Specialist Name | Role | Phone | [...] | | | | | [address] [facility] | [facility] | | | | | Park [facility], | [place], [place] | | | | | [place] [address] | [address] | | | | | [phone] | | | +--------+ + + + [...] [place] | | | | | | [address] | | | | | | [phone] | | | | | | | | +--------+ + + + + documented as of this encounter Visit Diagnoses Not on filedocumented in this encounter"
--- OUTSIDE RECORDS SUMMARY | ~2019-07-14 | XMS | Encounter Summary ---
Demographics + + + | Address | [address] | | | [place] [address] | + + + | Home Phone [...] Author | [facility] | | | and Josephana | + + + | Organization | [facility] | | | [...] Providers + +------+ + | Care Photoengraving Machine Operator/Tender Name | Role | Phone [...] + + | 11/15/ | Telephone | [facility] | George Torres RN | Medication Problem | | 2019 | | [address] | | (CMN O2) | | | | [place] | | | | | | [address] | | | | | | [phone] | | | +--------+ + + + [...]
--- OUTSIDE RECORDS SUMMARY | ~2019-07-14 | XMS | Encounter Summary ---
Demographics + + + | Address | [address] | | | [place] [address] | + + + | Home Phone [...] | | | | | [place] [address] | | + + + + + | Thania Mallory | ECON | [address] | | | | | [place] [address] | | + + + + + | Deidra Weldon | ECON | [address] | | | | | [place] | | | | | [address] | | + + + + + Care Team Providers + +------+ + | Care Flat Folding Machine Operator Name | Role | Phone [...] | | | | | [address] [place], | | | | | | [place] [address] | | | +--------+ + + + [...] Denise | | | | | | [place], [place] | | | | | | [address] | | | | | | [phone] | | | | | | | [...] [facility] - | [address] | [place] [address] | | | IMMUNOGENETICS/TRANS | [address] [...] [facility] - | [address], | [place] [address] | | | IMMUNOGENETICS/TRANS | [address] [...] + + | [facility] - | [address] | [place] [address] | | | IMMUNOGENETICS/TRANS | [address] | | | | PLANT LABORATORY | | | | + + + + + documented in this encounter Visit Diagnoses + + | Diagnosis | + + | End stage renal disease (HCC) End stage renal disease | + + documented in this encounter"
--- OUTSIDE RECORDS SUMMARY | ~2019-07-14 | XMS | Encounter Summary ---
Demographics + + + | Address | [address] | | | [place] [address] | + + + | Home Phone [...] | | | | | [place] [address] | | + + + + + | Thania Mallory | ECON | [address] | | | | | [place] [address] | | + + + + + | Deidra Weldon | ECON | [address] | | | | | [place] | | | | | [address] | | + + + + + Care Team Providers + +------+ + | Care Subpoena Server Name | Role | Phone | + [...] pt's | | | | [address] [place], | [place], [place] | support plan & | | | | [place] [address] | [address] | social changes) | | | | [phone] | | | +--------+ + + + [...] Denise | | | | | | [place], [place] | | | | | | [address] | | | | | | [phone] | | | | | | | | +--------+ + + + + documented as of this encounter Visit Diagnoses Not on filedocumented in this encounter"
--- OUTSIDE RECORDS SUMMARY | ~2019-07-14 | XMS | Encounter Summary ---
Demographics + + + | Address | [address] | | | [place] [address] | + + + | Home Phone [...] | | | | | [place] [address] | | + + + + + | Thania Mallory | ECON | [address] | | | | | [place] [address] | | + + + + + | Deidra Weldon | ECON | [address] | | | | | [place] | | | | | [address] | | + + + + + Care Team Providers + +------+ + | Care Pediatrician/Medical Doctor Name | Role | Phone | [...] | | | | [address] [place] | [facility] | | | | | Park [facility], | [place], [place] | | | | | [place] [address] | [address] | | | | | [phone] | | | +--------+ + + + [...] [place] | | | | | | [address] | | | | | | [phone] | | | | | | | | +--------+ + + + + documented as of this encounter Visit Diagnoses Not on filedocumented in this encounter"
--- OUTSIDE RECORDS SUMMARY | ~2019-07-14 | XMS | Encounter Summary ---
Demographics + + + | Address | [address] | | | [place] [address] | + + + | Home Phone [...] | | | | | [place] [address] | | + + + + + | Thania Mallory | ECON | [address] | | | | | [place] [address] | | + + + + + | Deidra Weldon | ECON | [address] | | | | | [place] | | | | | [address] | | + + + + + Care Team Providers + +------+ + | Care Restorer Paper And Prints Name | Role | Phone | + [...] | | | | | [address] [facility] | [facility] | | | | | Park [facility], | [place], [place] | | | | | [place] [address] | [address] | | | | | [phone] | | | +--------+ + + + [...] Denise | | | | | | [place], [place] | | | | | | [address] | | | | | | [phone] | | | | | | | | +--------+ + + + + documented as of this encounter Visit Diagnoses Not on filedocumented in this encounter"
--- OUTSIDE RECORDS SUMMARY | ~2019-07-14 | XMS | Encounter Summary ---
Demographics + + + | Address | [address] | | | [place] [address] | + + + | Home Phone [...] Author | [facility] | | | and Josephana | + + + | Organization | [facility] | | | and [...] Providers + +------+ + | Care Media Strategist Name | Role | Phone | + +------+ + PCP | Unavailable | + +------+ + Encounter Details +--------+ + + + + | Date | Type | Department | Care Team | Description | +--------+ + + + + | 08/31/ | Hospital | [facility] | Conversion | ESRD (end stage | | 2016 | Encounter | CENTER CV INTRA OP | Transaction, | renal disease) (HCC) | | | | [address] | Provider Unknown | | | | | [place], [place] | | | | | | [address] | (Fax) | | | | | [phone] | Doyle Diaz MD | | +--------+ [...] | 2. IR ANGIOPLASTY AV FISTULA VENOUS SOLE STITCHER HAND: Doyle Diaz MD | | | CONSENT: [...] | | Over a guidewire, a 4 Estonian angled catheter was advanced and | | [...] | ANGIOPLASTY: Over a guidewire, a 6 Estonian sheath was advanced | | | and [...] IR ANGIOPLASTY AV | | FISTULA VENOUS SOLE STITCHER HAND: Doyle Diaz MD CONSENT: The risks, benefits [...] micropuncture needle. Over a guidewire, a 4 Estonian angled catheter was | | advanced and [...] appears patent. ANGIOPLASTY:Over a guidewire, a 6 Estonian sheath was | | advanced and positioned [...] AM | |Over a guidewire, a 6 Estonian sheath was advanced and positioned into the [...] | 2. IR ANGIOPLASTY AV FISTULA VENOUS SOLE STITCHER HAND: Doyle Diaz MD | | | CONSENT: [...] | | Over a guidewire, a 4 Estonian angled catheter was advanced and | | [...] | ANGIOPLASTY: Over a guidewire, a 6 Estonian sheath was advanced | | | and [...] IR ANGIOPLASTY AV | | FISTULA VENOUS SOLE STITCHER HAND: Doyle Diaz MD CONSENT: The risks, benefits [...] micropuncture needle. Over a guidewire, a 4 Estonian angled catheter was | | advanced and [...] appears patent. ANGIOPLASTY:Over a guidewire, a 6 Estonian sheath was | | advanced and positioned [...] AM | |Over a guidewire, a 6 Estonian sheath was advanced and positioned into the [...] | LAB | | | | Nica Oropeza;[place], [place] | | | | | | [address] | | | | + + + [...]
--- OUTSIDE RECORDS SUMMARY | ~2019-07-14 | XMS | Encounter Summary ---
Demographics + + + | Address | [address] | | | [place] [address] | + + + | Home Phone [...] + | Author | [facility] | | | and Josephana | + + + | Organization | [facility] | [...] Providers + +------+ + | Care Card Runner Name | Role | Phone | [...] | Telephone | [facility] [place] | Dainela Ibarra W, | Other | | 2014 | | NEPHROLOGY [address] | [address] | | | | | [address] | [address] [place] | | | | | [place], [place] | [place] [address] | | | | | [address] | [phone] | | | | | [phone] | | | +--------+ + + + [...]
--- OUTSIDE RECORDS SUMMARY | ~2019-07-14 | XMS | Encounter Summary ---
Demographics + + + | Address | [address] | | | [place] [address] | + + + | Home Phone [...] Author | [facility] | | | and Josephana | + + + | Organization | [facility] | [...] Team Providers + +------+ + | Care Pecan Gatherer Name | Role | Phone | + [...] | | stage renal | [address] | [address] [place] [address] | | | | | disease) | Shun Griffin | [place] | | | | | ([facility]) | [address] | [address] [place] | | | | | Anemia in | [place], [place] | [place] | | | | | ESRD | [address] | [address] Phone: | | | | | (end-stage | Phone: | [phone] | | | | | renal | [phone] | Fax: | | | | | disease) | Fax: | [phone] | | | | | ([facility]) | [phone] | | | | | | Procedures | | | | | | | AL OFFICE | | | | | | [...] M, DO [address] | renal disease) ([facility]) | | | | [address] | [place], [address] | (Primary Dx) | | | | [place], [place] | [place], [place] | | | | | [address] | [address] | | | | | [phone] | | | +--------+ + + + [...] have offered her arrangements via the Renal [facility] to obtain some meaningful counseling, but she [...] Will recheck her in 2 weeks. : [place] Fina Joy M.D., Pediatric Nephrology, [facility] documented in t his encounter Plan of Treatment Not on filedocumented as of this encounter Visit Diagnoses + + | Diagnosis | + + | ESRD (end stage renal disease) (HCC) - Primary End stage renal disease | + + documented in this encounter"
--- OUTSIDE RECORDS SUMMARY | ~2019-07-14 | XMS | Encounter Summary ---
Demographics + + + | Address | [address] | | | [place] [address] | + + + | Home Phone [...] | | | | | [place] [address] | | + + + + + | Thania Mallory | ECON | [address] | | | | | [place] [address] | | + + + + + | Deidra Weldon | ECON | [address] | | | | | [place] | | | | | [address] | | + + + + + Care Team Providers + +------+ + | Care Embedded Engineer Name | Role | Phone | + +------+ + | Shahid Camargo MD | PCP | | + +------+ + Encounter Details +--------+ + + + + | Date | Type | Department | Care Team | Description | +--------+ + + + + | 12/19/ | Document-Sc | UNKNOWN DEPARTMENT | Unknown . | | | 2012 | anned | [address] [facility] | | | | | | [facility] | | | | | | [place], [place] | | | | | | [address] | | | +--------+ + + + [...] [place] | | | | | | [address] | | | | | | [phone] | | | | | | | | +--------+ + + + + documented as of this encounter Visit Diagnoses Not on filedocumented in this encounter"
--- OUTSIDE RECORDS SUMMARY | ~2019-07-14 | XMS | Encounter Summary ---
Demographics + + + | Address | [address] | | | [place] [address] | + + + | Home Phone [...] | | | | | [place] [address] | | + + + + + | Thania Mallory | ECON | [address] | | | | | [place] [address] | | + + + + + | Deidra Weldon | ECON | [address] | | | | | [place] | | | | | [address] | | + + + + + Care Team Providers + +------+ + | Care Stitching Machine Operator Name | Role | Phone [...] | Nephrology at | MD Emanuel [address] [facility] | Requested (UDS) | | | | Alexander | Elias Elizondo | | | | | [facility] | [place], [place] | | | | | [address] | [address] | | | | | Alexander | [phone] | | | | | [facility], | | | | | | [address] [place] [address] | | | | | | [place], [place] | | | | | | [address] | | | | | | [phone] | | | +--------+ + + + [...] Denise | | | | | | [place] | | | | | | [address] | | | | | | [phone] | | | | | | | | +--------+ + + + + documented as of this encounter Visit Diagnoses Not on filedocumented in this encounter"
--- OUTSIDE RECORDS SUMMARY | ~2019-07-14 | XMS | Encounter Summary ---
Demographics + + + | Address | [address] | | | [place] [address] | + + + | Home Phone [...] [facility] | | | and Josephana | + + + | Organization | [facility] | | | [...] Providers + +------+ + | Care High Lift Driver Name | Role | Phone | + +------+ + PCP | Unavailable | + +------+ + Encounter Details +--------+ + + + + | Date | Type | Department | Care Team | Description | +--------+ + + + + | 07/31/ | Hospital | [facility] | Conversion | ESRD (end stage | | 2015 | Encounter | CENTER CV INTRA OP | Transaction, | renal disease) (HCC) | | | | [address] | Provider Unknown | | | | | [place], [place] | [phone] | | | | | [address] | | | | | | [phone] | Colten Hutchins MD | | | | | | [address] | | | | | | [place], [place] | | | | | | [address] | | | | | | | [...] 07/31/141620 Date of Service: 07/31/141619 Status: Signed Tunnel Elastic Operator Chainstitch: Mervat Harden RN (Registered Nurse) Pt meets d/c criteria. Site c/d/i and soft. Mother providing transportation home. Mervat Harden RN onver arturo Transaction, Provider Unknown - 07/31/2014 3:52 PM PDT Progress Notes by Mervat Harden RN at 07/31/141551 Author: Mervat Harden RN Service: (none) Author Type: Registered Nurse Filed: 07/31/14 1372 Date of Service: 07/31/141551 Status: Signed Tunnel Elastic Operator Chainstitch: Mervat Harden RN (Registered Nurse) Pt tolerated [...] this | | | patient in the Fertilizer Mixer holding area. I had a discussion with [...] | Procedure Note | + + | Sondio Steele Conversion - 10/19/2018 6:38 AM PDT PROCEDURERemoval of dual-lumen tunneled | | dialysis catheter in right upper chest under local anesthesia. INDICATIONSPatient with | | functioning left upper arm AV fistula. No longer utilizing tunneled dialysis catheter as | | a functioning access, needs removal. REQUESTING PROVIDERJorje Camp M.D. | | MEDICATIONSLidocaine 1% for local anesthesia. DESCRIPTION OF PROCEDUREI met this patient | | in the Fertilizer Mixer holding area. I had a discussion with [...]
--- OUTSIDE RECORDS SUMMARY | ~2019-07-14 | XMS | Encounter Summary ---
Demographics + + + | Address | [address] | | | [place] [address] | + + + | Home Phone [...] | | | | | [place] [address] | | + + + + + | Thania Mallory | ECON | [address] | | | | | [place] [address] | | + + + + + | Deidra Weldon | ECON | [address] | | | | | [place] | | | | | [address] | | + + + + + Care Team Providers + +------+ + | Care Pre Press Manager Name | Role | Phone | [...] 06/22/ | Documentati | Clinical | Kelsi Martniez, | Transplant Form | | 2016 | on | Transplant Services | RN [address] | Update | | | | [address] | [facility] | | | | | [place], | [place], [place] | | | | | [place] [address] | [address] | | | | | [phone] | | | +--------+ + + + [...] Denise | | | | | | [place], [place] | | | | | | [address] | | | | | | [phone] | | | | | | | | +--------+ + + + + documented as of this encounter Visit Diagnoses Not on filedocumented in this encounter"
--- OUTSIDE RECORDS SUMMARY | ~2019-07-14 | XMS | Encounter Summary ---
Demographics + + + | Address | [address] | | | [place] [address] | + + + | Home Phone [...] | | | | | [place] [address] | | + + + + + | Thania Mallory | ECON | [address] | | | | | [place] [address] | | + + + + + | Deidra Weldon | ECON | [address] | | | | | [place] | | | | | [address] | | + + + + + Care Team Providers + +------+ + | Care Hospice Care Consultant Name | Role | Phone | [...] | [address] | [place], | | | | | [place], | [place] [address] | | | | | [place] [address] | | | | | | [phone] | | | +--------+ + + + [...] Denise | | | | | | [place] | | | | | | [address] | | | | | | [phone] | | | | | | | | +--------+ + + + + documented as of this encounter Visit Diagnoses Not on filedocumented in this encounter"
--- OUTSIDE RECORDS SUMMARY | ~2019-07-14 | XMS | Encounter Summary ---
Demographics + + + | Address | [address] | | | [place] [address] | + + + | Home Phone [...] Author | [facility] | | | and Josephana | + + + | Organization | [facility] | [...] + +------+ + | Care Assistant Professor Of Religion Name | Role | Phone | + [...] [place] | | | | | | [address] | | | | | | [phone] | | | +--------+ + + + [...]
--- OUTSIDE RECORDS SUMMARY | ~2019-07-14 | XMS | Encounter Summary ---
Demographics + + + | Address | [address] | | | [place] [address] | + + + | Home Phone [...] | | | | | [place] [address] | | + + + + + | Thania Mallory | ECON | [address] | | | | | [place] [address] | | + + + + + | Deidra Weldon | ECON | [address] | | | | | [place] | | | | | [address] | | + + + + + Care Team Providers + +------+ + | Care Clinical Supervisor Name | Role | Phone | + +------+ + PCP | Unavailable | + +------+ + Reason for Visit + + + | Reason | Comments | + + + | Transplant Form | pipe out worker 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 | | Update | [...] dates | | | | [address] [place], | [place], [place] | updated) | | | | [place] [address] | [address] | | | | | [phone] | [phone] | | | | | | | [...] Denise | | | | | | [place] | | | | | | [address] | | | | | | [phone] | | | | | | | | +--------+ + + + + documented as of this encounter Visit Diagnoses Not on filedocumented in this encounter"
--- OUTSIDE RECORDS SUMMARY | ~2019-07-14 | XMS | Encounter Summary ---
Demographics + + + | Address | [address] | | | [place] [address] | + + + | Home Phone [...] | | | | | [place] [address] | | + + + + + | Thania Mallory | ECON | [address] | | | | | [place] [address] | | + + + + + | Deidra Weldon | ECON | [address] | | | | | [place] | | | | | [address] | | + + + + + Care Team Providers + +------+ + | Care Photo Graphics Librarian Name | Role | Phone | [...] update | | | | [place], | [place], [place] | from pt's mom) | | | | [place] [address] | [address] | | | | | [phone] | | | +--------+ + + + [...] | | | | | | [place] | | | | | | [address] | | | | | | [phone] | | | | | | | | +--------+ + + + + documented as of this encounter Visit Diagnoses Not on filedocumented in this encounter"
--- OUTSIDE RECORDS SUMMARY | ~2019-07-14 | XMS | Encounter Summary ---
Demographics + + + | Address | [address] | | | [place] [address] | + + + | Home Phone [...] | Author | [facility] | | | and [place]ana | + + + | Organization | [facility] [...] + + | 11/13/ | Telephone | [facility] | Silvia Rabago | DME (OXYGEN) | | 2019 | | [address] | | | | | [place] | | | | | | [address] | | | | | | [phone] | | | +--------+ + + + [...]
--- OUTSIDE RECORDS SUMMARY | ~2019-07-14 | XMS | Encounter Summary ---
Demographics + + + | Address | [address] | | | [place] [address] | + + + | Home Phone [...] + | Author | [facility] | | | and Josephana | + + + | Organization | [facility] | | | and [...] Team Providers + +------+ + | Care Timber Cruiser Name | Role | Phone | + [...] NEPHROLOGY [address] | MD [address] | (Asymptomatic) | | | | [address] | [address] [place] | | | | | [place], [place] | [place] [address] | | | | | [address] | [phone] | | | | | [phone] | | | +--------+ + + + [...] 3:01 PM PDTHemodialysis progress note e-faxed to [facility] [place], Lianna Joy MD, [facility] Renal Transplant Clinic on 11/29/13.Electronical ly signed by Marilyn Palumbo at 11/29/2013 3:02 PM Daniela Marquez MD - 11/22/2013 11 :03 AM PDT Comprehensive Dialysis Monthly Note Date of visit: 11/22/2013 Dialysis Clinic: [facility] Mode of dialysis: Hemodialysis Dialysis prescription: [...] 2012. Access: R chest catheter. Re-referred to [facility] transplant in Oct 2013 by junior systems administrator. Peritonitis, dialysis-associated (HCC) 07/29/2013 Note Last Updated: 07/29/2013 Due to MSSA. Had tunneled infection as well. PD catheter removed in July 2013. On Keflex till 08/01/13. History of Henoch-Schonlein purpura Note Last Updated: 07/29/2013 Diagnosed at age 10[address] Joy, junior systems administrator. Anemia in ESRD (end-stage renal disease) (HCC) [...] had any infectious complication to date. -per [facility] transplant, AVF is not recommended at this [...] living donor. Pt has been referred to [facility] in [place] [address] Joy. -followed [facility] with [facility]na Joy, [facility] Pediatric Nephrology [facility] Renal transplant documented in this encounter Plan [...]
--- OUTSIDE RECORDS SUMMARY | ~2019-07-14 | XMS | Encounter Summary ---
Demographics + + + | Address | [address] | | | [place] [address] | + + + | Home Phone [...] | | | | | [place] [address] | | + + + + + | Thania Mallory | ECON | [address] | | | | | [place] [address] | | + + + + + | Deidra Weldon | ECON | [address] | | | | | [place] | | | | | [address] | | + + + + + Care Team Providers + +------+ + | Care Hand Wood Sander Name | Role | Phone | + [...] | | | [place], | [place] [address] | | | | | [place] [address] | [phone] | | | | | | | [...] Denise | | | | | | [place], [place] | | | | | | [address] | | | | | | [phone] | | | | | | | | +--------+ + + + + documented as of this encounter Visit Diagnoses Not on filedocumented in this encounter"
--- OUTSIDE RECORDS SUMMARY | ~2019-07-14 | XMS | Encounter Summary ---
Demographics + + + | Address | [address] | | | [place] [address] | + + + | Home Phone [...] | | | | | [place] [address] | | + + + + + | Thania Mallory | ECON | [address] | | | | | [place] [address] | | + + + + + | Deidra Weldon | ECON | [address] | | | | | [place] | | | | | [address] | | + + + + + Care Team Providers + +------+ + | Care Managing Consultant Clinical Professor Name | Role | Phone | [...] | | | | | [place], | | | | | | [place] [address] | | | +--------+ + + + [...] Denise | | | | | | [place], [place] | | | | | | [address] | | | | | | [phone] | | | | | | | [...] [facility] - | [address], | [place] [address] | | | IMMUNOGENETICS/TRANS | [address] | | | | [facility] | | | | + + + + + documented in this encounter Visit Diagnoses Not on filedocumented in this encounter"
--- OUTSIDE RECORDS SUMMARY | ~2019-07-14 | XMS | Clinical Summary ---
Demographics + + + | Address | [address] | | | [place] [address] | + + + | Home Phone [...] | | | | | [place] [address] | | + + + + + | Thania Mallory | ECON | [address] | | | | | [place] [address] | | + + + + + | Deidra Weldon | ECON | [address] | | | | | [place], [place] | | | | | [address] | | + + + + + Care Team Providers + +------+ + | Care Belt Cutter Name | Role | Phone | + +------+ + | Jonathan Alonso MD | PCP | | + +------+ + Source Comments DANILO is fully live on both EpicCare Ambulatory and EpicCare InPatient.[facility] Allerg[facility] + + + + + [...] Denise | | | | | | [place], [place] | | | | | | [address] | | | | | | [phone] | | | | | | | [...] | MEDICA | xxxxxxxxxxx | 05/05/19 | [phone] | [address] | Medica | | | RE A & | | 13-Pre | 1 | [address] | re | | | B | | sent | | [place] | | | | | | | | [address] | | + +--------+ +--------+ + +--------+ | PROCEDURAL NURSE MEDICAID | PROCEDURAL NURSE | xxxxxxxx | Effect | | | [...] RECIP[place] | | all | | [place] [address] | | | | ENT | | [...] | Self | [birth year] | [address] | | | al/Fam | | 1995 | [phone] | [address] [place] | | | kamron | | | 2 (Zoe) | [address] | | | | | | [phone] | | | | | | | 0 (Work) | | + +--------+ +--------+ + + | CORY ALVES | Specia | Mother | [birth year] | [address] # | | | l | | 1899 | [phone] | [address] [place] | | | Luisin | | | 2 (Home) | [address] | | | g | | | | | + +--------+ +--------+ + +
--- OUTSIDE RECORDS SUMMARY | ~2019-07-14 | XMS | Encounter Summary ---
Demographics + + + | Address | [address] | | | [place] [address] | + + + | Home Phone [...] | | | | | [place] [address] | | + + + + + | Thania Mallory | ECON | [address] | | | | | [place] [address] | | + + + + + | Deidra Weldon | ECON | [address] | | | | | [place] | | | | | [address] | | + + + + + Care Team Providers + +------+ + | Care Stogie Packer Name | Role | Phone | [...] MEDICARE 2728; HSP | | | | [facility] | | ([place] | | | | [address] | | conchita) nephritis; | | | | [place] | | Hemodialysis status | | | | [facility] | | ([facility]); Chronic | | | | 7th Floor [place], | | kidney disease, | | | | [place] [address] | | stage V ([facility]) | | | | [phone] | | | +--------+------+ + + + [...] Denise | | | | | | [place], [place] | | | | | | [address] | | | | | | [phone] | | | | | | | [...] | e | 9:59 AM | MEDICARE 9343 HSP | procedure are in the | [...] | | | | stage V ([facility]) | | + +--------+ + [...] | | | | stage V ([facility]) | | + +--------+ + [...] | | | | | | ([facility]) Chronic | | | | | | kidney disease, | | | | | | stage V ([facility]) | | + +--------+ + [...] | | | | stage V ([facility]) | | + +--------+ + + + | HIV-1,2 AB/HIV-1 P24 | Routin | 01/20/2015 | Allergic purpura- | Results for this | | AG SCRN | e | 9:59 AM | MEDICARE 2728 HSP | procedure are in the | | | | PST | ([facility] | results section. | | |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 | | | | | | Hemodialysis status | | | | | | (HCC) Chronic | | | | | | kidney disease, | | | | | | stage V ([facility]) | | + +--------+ + + + | RPR SERUM | Routin | 01/20/2015 | Allergic purpura- | Results for this | | | e | 9:59 AM | MEDICARE 2728 HSP | procedure are in the | | | | PST | ([facility] | results section. | | | | [...] | | PST | ([facility] | results section. | | | | [...] | | PST | ([facility] | results section. | | | | [...] the | | | | PST | ([facility] | results section. | | | [...] the | | | | PST | ([facility] | results section. | | | | [...] the | | | | PST | ([facility] | results section. | | | | [...] + | [facility] - | [address] | [place] [address] | | | [place] | | | | + + + [...] [facility] | [address] | [place] [address] | | | SERVICES, CORE | PARK [...] + + + | [facility] | [address] | [place] [address] | | | RIKY, SPECIAL | [address] | | | [...] + + | TILA | [address] | [place] [address] | | | DIAGNOSTIC | [address] [...] + | [facility] - | [address] | [place] [address] | | | [facility] | [...] + | [facility] - | [address] | [place] [address] | | | [place] | | | [...] + | [facility] - | [address] | [place] [address] | | | [place] | | | [...] + | [facility] - | [address] | [place] [address] | | | [place] | | | [...] by | | | | | | [facility],[address] | | | | | | [address], [facility],[place] | | | | | | [address] | | | | | | [phone].[employer]ail [employer]. | | | | | | Faisal [...] [facility] | [address] | [place], [place] | | | UN[facility] | | [address] | | + + + + + [...] | + + + + + | [facility] - | [address] | [place] [address] | | | [place] | | | [...] Laboratories,[address] | | | | | | [address], [place] | | | | | | [address] | | | | | | [phone]. | | | | | | com, Faisal W. Hussong, | | | | | | Lab. [...] [facility] | [address] | [place], [place] | | | UN[facility] | | [address] | | + + + + + [...] [facility] | [address] | [place] [address] | | | SERVICES, CORE | PARK [...] + + + + + | [facility] | [address] | [place] [address] | | | SERVICES, CORE | LONG [...] + + + | [facility] | [address] | [place] [address] | | | SERVICES, CORE | [address] | | | + + + + + MAGNESIUM, PLASMA (01/20/2015 9:59 AM PST) + +-------+ + + + | Component | Value | Ref Range | Performed | Pathologist | | | | | At | Signature | + +-------+ + + + | MAGNESIUM,P | 2.3 | 1.8 - 2.5 mg/dL | [place] | | | LASMA | | | [...] + + + + + | [facility] | [address] | [place] [address] | | | SERVICES, CORE | LONG [...] + + + | [facility] | [address] | [place] [address] | | | SERVICES, CORE | PARK [...] | | | LABORATORY | | | VINCENTIAN | | | SERVICES, | | | [...] + + + + + | [facility] | [address] | [place] [address] | | | SERVICES, HOMERO | LONG [...]
--- OUTSIDE RECORDS SUMMARY | ~2019-07-14 | XMS | Encounter Summary ---
Demographics + + + | Address | [address] | | | [place] [address] | + + + | Home Phone [...] | | | | | [place] [address] | | + + + + + | Thania Mallory | ECON | [address] | | | | | [place] [address] | | + + + + + | Deidra Weldon | ECON | [address] | | | | | [place] | | | | | [address] | | + + + + + Care Team Providers + +------+ + | Care New Grad Rn Name | Role | Phone | [...] | | | | [address] | [address] | | | | | | [place] | floor | | | | | | [place], | [place], [place] | | | | | | [place] | [address] | | | | | | [address] | Phone: | | | | | | Phone: | [phone] | | | | | | [phone] | | | | | | | Fax: | | | | | | | [phone] | | +--------+--------+ + + + + Encounter Details +--------+---------+ + + + | Date | Type | Department | Care Team | Description | +--------+---------+ + + + | 05/24/ | Office | Specialty Clinics | Sudhakar Joy | HSP | | 2017 | Visit | at [facility] [address] | DMD [address] | (David | | | | [address] | [address] | purpura) nephritis | | | | [place] | [place], [place] | (Primary Dx); Anemia | | | | [facility], | [address] | of chronic kidney | | | | 7th floor | [phone] | failure, stage 5 | | | | [place], [place] | | ([facility]) | | | | [address] | | | | | | [phone] | | | +--------+---------+ + + + [...] not be referred for transplant. Her adult programmer analyst could refer her to adult transplant when [...] [address] Mail code [facility]P [place], [place] [id number] documented in this encounter Plan of Treatment [...] [place] | | | | | | [address] | | | | | | [phone] | | | | | | | [...]
--- OUTSIDE RECORDS SUMMARY | ~2019-07-14 | XMS | Encounter Summary ---
Demographics + + + | Address | [address] | | | [place] [address] | + + + | Home Phone [...] | | | | | [place] [address] | | + + + + + | Thania Mallory | ECON | [address] | | | | | [place] [address] | | + + + + + | Deidra Weldon | ECON | [address] | | | | | [place] | | | | | [address] | | + + + + + Care Team Providers + +------+ + | Care Solutions Development Analyst Name | Role | Phone | + +------+ + PCP | Unavailable | + +------+ + Encounter Details +--------+ + + + + | Date | Type | Department | Care Team | Description | +--------+ + + + + | 04/09/ | Abstract | Pediatric | Sudhakar Joy | | | 2013 | | Nephrology at | MD Emanuel [address] [facility] | | | | | [place] | [place] | | | | | [facility] | [place], [place] | | | | | [address] [facility] | [address] | | | | | [place] | [phone] | | | | | [facility], | | | | | | [address] [place] [address] | | | | | | [place], [place] | | | | | | [address] | | | | | | [phone] | | | +--------+ + + + [...] Denise | | | | | | [place], [place] | | | | | | [address] | | | | | | [phone] | | | | | | | | +--------+ + + + + documented as of this encounter Visit Diagnoses Not on filedocumented in this encounter"
--- OUTSIDE RECORDS SUMMARY | ~2019-07-14 | XMS | Encounter Summary ---
Demographics + + + | Address | [address] | | | [place] [address] | + + + | Home Phone [...] | | | | | [place] [address] | | + + + + + | Thania Mallory | ECON | [address] | | | | | [place] [address] | | + + + + + | Deidra Weldon | ECON | [address] | | | | | [place] | | | | | [address] | | + + + + + Care Team Providers + +------+ + | Care Storage Center Manager Name | Role | Phone | [...] pt's | | | | [address] [place], | [place], [place] | support plan & | | | | [place] [address] | [address] | social changes) | | | | [phone] | | | +--------+ + + + [...] [place] | | | | | | [address] | | | | | | [phone] | | | | | | | | +--------+ + + + + documented as of this encounter Visit Diagnoses Not on filedocumented in this encounter"
--- OUTSIDE RECORDS SUMMARY | ~2019-07-14 | XMS | Encounter Summary ---
Demographics + + + | Address | [address] | | | [place] [address] | + + + | Home Phone [...] | Author | [facility] | | | and Josephana | + + + | Organization | [facility] [...] | stage renal | [address] | [address] [place] [address] | | | | | disease) | Shun Griffin | [place] | | | | | ([facility]) | [address] | [address] | | | | | Anemia in | [place], [place] | [place] | | | | | ESRD | [address] | [address] Phone: | | | | | (end-stage | Phone: | [phone] | | | | | renal | [phone] | Fax: | | | | | disease) | Fax: | [phone] | | | | | ([facility]) | [phone] | | | | | | Procedures [...] | | [address] | [place], [address] | (Primary Dx) | | | | [place], [place] | [place], [place] | | | | | [address] | [address] | | | | | [phone] | | | +--------+ + + + [...] for the 01/25/16 encounter (Off-Site Visit) with Jroje Camp DO Medication Sig Dispense Refill albuterol [...] Will recheck her in 2 weeks. : [place] Fina Joy M.D., Pediatric Nephrology, [facility] documented in th is encounter Plan of Treatment Not on filedocumented as of this encounter Visit Diagnoses + + | Diagnosis | + + | ESRD (end stage renal disease) ([facility]) - Primary End stage renal disease | + + documented in this encounter"
--- OUTSIDE RECORDS SUMMARY | ~2019-07-14 | XMS | Encounter Summary ---
Demographics + + + | Address | [address] | | | [place] [address] | + + + | Home Phone [...] | | | | | [place] [address] | | + + + + + | Thania Mallory | ECON | [address] | | | | | [place] [address] | | + + + + + | Deidra Weldon | ECON | [address] | | | | | [place] | | | | | [address] | | + + + + + Care Team Providers + +------+ + | Care Site Promotion Agent Name | Role | Phone | [...] [address] | | | | | ([facility]) | [address] | [place], | | | | | Allergic | [place], [place] | [place] | | | | | purpura | [address] | [address] | | | | | ([facility]) | Phone: | Phone: | | | | | | [phone] | [phone] | | | | | | Fax: | Fax: | | | | | | [phone] | [phone] | +--------+--------+ + + + + Encounter Details +--------+---------+ + + + | Date | Type | Department | Care Team | Description | +--------+---------+ + + + | 12/19/ | Office | Kidney Transplant | Clinic, Ltx [address] | Patient on | | 2012 | Visit | at Physician's | [facility] | peritoneal dialysis | | | | [address] [facility] [place] | (HCC) (Primary Dx); | | | | [address] | [address] | Unspecified | | | | Physician's | | essential | | | | Pavilion, 2nd floor | | hypertension; HSP | | | | [place], [place] | | ([place] | | | | [address]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; | | | | [phone] | | Obesity (BMI | | | [...] on file Social History Narrative Lives in [place], [place] with father and step-mother; 2 dogs; [...] Transplant Selection Confer ence. El Starr MD maintenance job titles, Division of Abdominal Organ Transplantation Professor of Urology CC: Sudhakar Joy MD [address] [place] [address] documented in this encoun ter Plan of Treatment +--------+ + + + + | Date | Type | Specialty | Care Team | Description | +--------+ + + + + | 05/04/ | Hospital | Adult Acute Care | El Starr MD | | | 2022 | Encounter | | [address] | | | | | | [place] | | | | | | [address] | | | | | | [phone] | | | | | | | [...]
--- OUTSIDE RECORDS SUMMARY | ~2019-07-14 | XMS | Encounter Summary ---
Demographics + + + | Address | [address] | | | [place] [address] | + + + | Home Phone [...] | | | | | [place] [address] | | + + + + + | Thania Mallory | ECON | [address] | | | | | [place] [address] | | + + + + + | Deidra Weldon | ECON | [address] | | | | | [place] | | | | | [address] | | + + + + + Care Team Providers + +------+ + | Care Asset Recovery Specialist Name | Role | Phone | [...] MEDICARE 2728; HSP | | | | [facility] | | ([place] | | | | [address] | | conchita) nephritis; | | | | [place] | | Hemodialysis status | | | | [facility] | | ([facility]); Chronic | | | | 7th Floor [place], | | kidney disease, | | | | [place] [address] | | stage V ([facility]) | | | | [phone] | | | +--------+------+ + + + [...] Denise | | | | | | [place], [place] | | | | | | [address] | | | | | | [phone] | | | | | | | [...] | e | 9:59 AM | MEDICARE 6622 HSP | procedure are in the | [...] | PST | ([facility] | results section. | | | | [...] the | | | | PST | ([facility] | results section. | | | [...] the | | | | PST | ([facility] | results section. | | | | [...] the | | | | PST | ([facility] | results section. | | | | [...] the | | | | PST | ([facility] | results section. | | | [...] the | | | | PST | ([facility] | results section. | | | [...] the | | | | PST | ([facility] | results section. | | | | [...] + | [facility] - | [address] | [place] [address] | | | [place] | | | | + + + [...] [facility] | [address] | [place] [address] | | | SERVICES, CORE | PARK [...] | + + + + + | [facility] | [address] | [place] [address] | | | RIKY, SPECIAL | [address] | | | | IMM + [...] TILA | [address] | [place] [address] | | | DIAGNOSTIC | [address] [...] + | [facility] - | [address] | [place] [address] | | | [facility] | | | | + + + [...] + | [facility] - | [address] | [place] [address] | | | [place] | | | [...] + | [facility] - | [address] | [place] [address] | | | [place] | | | [...] + | [facility] - | [address] | [place] [address] | | | [place] | | | [...] by | | | | | | [employer],[address] | | | | | | [address], [facility],[place] | | | | | | [address] | | | | | | [phone]. | | | | | | Faisal [...] [facility] | [address] | [place], [place] | | | UN[facility] | | [address] | | + + + + + [...] | + + + + + | [employer] [facility] AIR[facility] - | [address] | [place] [address] | | | [place] | | | [...] [place] | | | | | | [address] | | | | | | [phone]. | | | | | | com, [...] [facility] | [address] | [place], [place] | | | [facility] | | [address] | | + + + + + [...] [facility] | [address] | [place] [address] | | | SERVICES, CORE | PARK [...] | + + + + + | [facility] | [address] | [place] [address] | | | SERVICES, CORE | LONG [...] | + + + + + | [facility] | [address] | [place] [address] | | | SERVICES, CORE | [address] | | | + + + + + MAGNESIUM, PLASMA (01/20/2015 9:59 AM PST) + +-------+ + + + | Component | Value | Ref Range | Performed | Pathologist | | | | | At | Signature | + +-------+ + + + | MAGNESIUM,P | 2.3 | 1.8 - 2.5 mg/dL | [place] | | | LASMA | | | [...] | + + + + + | [facility] | [address] | [place] [address] | | | SERVICES, CORE | LONG [...] | + + + + + | [facility] | [address] | [place] [address] | | | SERVICES, CORE | PARK [...] | + + + + + | [facility] | [address] | [place] [address] | | | SERVICES, HOMERO | LONG [...]
--- OUTSIDE RECORDS SUMMARY | ~2019-07-14 | XMS | Encounter Summary ---
Demographics + + + | Address | [address] | | | [place] [address] | + + + | Home Phone [...] | Author | [facility] | | | and Josephana | + + + | Organization | [facility] | [...] Team Providers + +------+ + | Care Microbiology Manager Name | Role | Phone | [...] stage renal | [address] | [address] [place] [address] | | | | | disease) | Shun Griffin | [place] | | | | | ([facility]) | [address] | [address] | | | | | Anemia in | [place], [place] | [place] | | | | | ESRD | [address] | [address] Phone: | | | | | (end-stage | Phone: | [phone] | | | | | renal | [phone] | Fax: | | | | | disease) | Fax: | [phone] | | | | | ([facility]) | [phone] | | | | | | Procedures [...] [address] | renal disease) ([facility]) | | | | [address] | [place], [address] | (Primary Dx) | | | | [place], [place] | [place], [place] | | | | | [address] | [address] | | | | | [phone] | | | +--------+ + + + [...] is seen on the MWF shift at [place], [place]. 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 Sadly, efforts at counseling by multiple caregivers including Dr. Ibarra, myself, Staff Nurs es, and Clinic SLURRY TANK OPERATOR have failed to reach her. She continues [...] Will recheck her in 2 weeks. : [place] Fina Joy M.D., Pediatric Nephrology, [facility] documented in t his encounter Plan of Treatment Not on filedocumented as of this encounter Visit Diagnoses + + | Diagnosis | + + | ESRD (end stage renal disease) (HCC) - Primary End stage renal disease | + + documented in this encounter"
--- OUTSIDE RECORDS SUMMARY | ~2019-07-14 | XMS | Encounter Summary ---
Demographics + + + | Address | [address] | | | [place] [address] | + + + | Home Phone [...] | Author | [facility] | | | and Josephana | + + + | Organization | [facility] [...] Providers + +------+ + | Care Rail Crew Member Name | Role | Phone [...] NEPHROLOGY [address] | M, DO [address] | | | | | [address] | [place], [address] | | | | | [place], [place] | [place], [place] | | | | | [address] | [address] | | | | | [phone] | | | +--------+ + + + [...]
--- OUTSIDE RECORDS SUMMARY | ~2019-07-14 | XMS | Encounter Summary ---
Demographics + + + | Address | [address] | | | [place] [address] | + + + | Home Phone [...] Author | [facility] | | | and Josephana | + + + | Organization | [facility] [...] Team Providers + +------+ + | Care Horticultural Specialty Grower Field Name | Role | Phone | + [...] Anemia in | Sudhakar Castellanos, | Jorje Obiren DO | | | | | chronic | MD [address] | [address] | | | | | kidney | Shun Griffin | [place] | | | | | disease([address]. | [address] | [address] [place] | | | | | [address]) End | [place], [place] | [place] | | | | | stage renal | [address] | [address] Phone: | | | | | disease | Phone: | [phone] | | | | | ([facility]) | [phone] | Fax: | | | | | Infection | Fax: | [phone] | | | | | and | [phone] | | | | | | inflammatory | | | | | | | reaction | | | | | | | due to | | | | | | | peritoneal | | | | | | | dialysis | | | | | | | catheter | | | | | | | Procedures | | | | | | | DC OFFICE | | | | | | [...] [address] | renal disease) ([facility]) | | | | [address] | [place], [address] | (Primary Dx); | | | | [place], [place] | [place], [place] | Anemia in ESRD | | | | [address] | [address] | (end-stage renal | | | | [phone] | | disease) ([facility]) | +--------+ + + + + Social [...] There fore she has had construction of apache radio cephalic fistula in her left [...] Chavarria's help with her permanent AVF. C: Vernonia Fina Joy MD, Renal Transplant Clinic, [facility] documented in thi s encounter Plan of Treatment Not on filedocumented as of this encounter Visit Diagnoses + + | Diagnosis | + + | ESRD (end stage renal disease) ([facility]) - Primary End stage renal disease | + + | Anemia in ESRD (end-stage renal disease) ([facility]) Anemia in chronic kidney disease | + + documented in this encounter"
--- OUTSIDE RECORDS SUMMARY | ~2019-07-14 | XMS | Encounter Summary ---
Demographics + + + | Address | [address] | | | [place] [address] | + + + | Home Phone [...] | Author | [facility] | | | and Josephana | + + + | Organization | [facility] [...] Team Providers + +------+ + | Care Fixer Boarding Room Name | Role | Phone | + +------+ + PCP | Unavailable | + +------+ + Encounter Details +--------+ + + + + | Date | Type | Department | Care Team | Description | +--------+ + + + + | 04/08/ | Hospital | [facility] | iRk Simon MD | | | 2015 | Encounter | [facility] | [address] | | | | | [address] | [place], [place] | | | | | [place], [place] | [address] | | | | | [address] | [phone] | | | | | [phone] | | | +--------+ + + + [...] 142 Date of Service: 04/08/141425 Status: Signed Senior Interaction Designer: Coral Amador RPH (Pharmacist) Clinical Pharmacy Note - Renal Dose Adjustment Dara Weldon 19 y.o. female Ht Readings from Last 1 Encounters: 04/08/14 1.676 m (5' 6") (75 %*, Z = 0.69) * Growth percentiles are based on [facility] 2-20 Years data. Wt Readings from Last 1 Encounters: 04/08/14 96.2 kg (212 lb 1.3 oz) (98 %*, Z = 2.12) * Growth percentiles are based on [facility] 2-20 Years data. CREATININE Date Value Ref Range Status 04/08/2014 8.68* 0.50 - 1.00 mg/dL Final Testing performed at [facility];[address] [place] [address];[place] [address] ESRD on HD Pharmacy to renally adjust [...] Note by Cheryl Rubalcava RN at 04/08/14 6861 Author: Cheryl Rubalcava RN Service: (none) Author Type: Registered Nurse Filed: 04/08/14 1443 Date of Service: 04/08/141407 Status: Signed Senior Interaction Designer: Cheryl Rubalcava RN (Registered Nurse) Pt and [...] 132 Date of Service: 04/08/141320 Status: Signed Senior Interaction Designer: Cheryl Rubalcava RN (Registered Nurse) Pt family [...] C-ARM FLUORO UP TO 1 | | 04/08/2014 11:48 AM HISTORY:Central line placement. TECHNIQUE:One view [...] LAB | | | | Blvd;[place] [address] | | | | + + + + + + | Antibody | NEGATIVE | | EXTERNAL | | | Screen | | | LAB | | + + + + + + | Antibody | Testing performed at | | EXTERNAL | | | Screen | [facility];[address] | | LAB | | | | Bl[address];[place] [address] | | | | + + + + + + | BB BAND | [id number] | | EXTERNAL | | | | | | LAB | | + + + + + + | BB BAND | Testing performed at | | EXTERNAL | | | | [facility];[address] | | LAB | | | | Blvd;[place] [address] | | | | + + + [...] [place] | | | | | | [address] | | | | + + + + + + | K | 4.1Comment: SLT | 3.5 - 4.9 | EXTERNAL | | | | HEMOLYSISTesting | mmol/L | LAB | | | | performed at [facility];[address] | | [address];[place] | | | | | | [address] | | | | + + + + + + | Cl | 102Comment: Testing | 99 - 109 mmol/L | EXTERNAL | | | | performed at [facility];[address] | | LAB | | | | [address];[place] | | | | | | [address] | | | | + + + + + + | CO2 | 28Comment: Testing | 23 - 32 mmol/L | EXTERNAL | | | | performed at [facility];[address] | | LAB | | | | [address];[place] | | | | | | [address] | | | | + + + + + + | Anion Gap | 13Comment: Testing | 5 - 20 mmol/L | EXTERNAL | | | | performed at [facility];[address] | | LAB | | | | [address];[place] | | | | | | [address] | | | | + + + + + + | Glucose, | 87Comment: Testing | 65 - 99 mg/dL | EXTERNAL | | | Fasting | performed at [facility];[address] | | LAB | | | | [address];[place] | | | | | | [address] | | | | + + + + + + | BUN | 32 (H)Comment: Testing | 8 - 25 mg/dL | EXTERNAL | | | | performed at [facility];[address] | | LAB | | | | [address];[place] | | | | | | [address] | | | | + + + + + + | Creatinine | 8.68 (H)Comment: Testing | 0.50 - 1.00 | EXTERNAL | | | | performed at [facility];[address] | mg/dL | LAB | | | | [address];[place] | | | | | | [address] | | | | + + + + + + | BUN/Creatin | 4Comment: Testing | | EXTERNAL | | | ine Ratio | performed at [facility];[address] | | LAB | | | | [address];[place] | | | | | | [address] | | | | + + + + + + | Calcium | 8.8Comment: NOTE NEW | 8.5 - 10.5 | EXTERNAL | | | | REFERENCE RANGETesting | mg/dL | LAB | | | | performed at [facility];[address] | | | | | | [address] [facility];[place], [place] | | | | | | [address] | | | | + + + [...] | | | | | [address];[place], [place] | | | | | | [address] | | | | + + + [...]
--- OUTSIDE RECORDS SUMMARY | ~2019-07-14 | XMS | Encounter Summary ---
Demographics + + + | Address | [address] | | | [place] [address] | + + + | Home Phone [...] | [facility] | | | and [place] | + + + | Organization | [facility] | [...] + +------+ + | Care Community Health Consultant Name | Role | Phone | [...] [address] [place] | [place] [address] | | | | | [address] [place] [address] | [phone] | | | | | [address] | | | | | | [phone] | | | +--------+ + + + [...] card. I also called the Fina Sparrow forensic social worker, and let her know t hat Dara can be re-referred after she has her marijuana medicinal card. Electronically sig carlos by Roro Myles at 07/03/2018 3:17 PM PDTdocumented in this encounter Plan of Treatment Not on filedocumented as of this encounter Visit Diagnoses Not on filedocumented in this encounter"
--- OUTSIDE RECORDS SUMMARY | ~2019-07-14 | XMS | Encounter Summary ---
Demographics + + + | Address | [address] | | | [place] [address] | + + + | Home Phone [...] | | | | | [place] [address] | | + + + + + | Thania Mallory | ECON | [address] | | | | | [place] [address] | | + + + + + | Deidra Weldon | ECON | [address] | | | | | [place] | | | | | [address] | | + + + + + Care Team Providers + +------+ + | Care Label Paster Name | Role | Phone | + [...] Griffin | [facility] | recommendations) | | | | [address] [place], | [place], [place] | | | | | [place] [address] | [address] | | | | | [phone] | | | +--------+ + + + [...] Denise | | | | | | [place] | | | | | | [address] | | | | | | [phone] | | | | | | | | +--------+ + + + + documented as of this encounter Visit Diagnoses Not on filedocumented in this encounter"
--- OUTSIDE RECORDS SUMMARY | ~2019-07-14 | XMS | Encounter Summary ---
Demographics + + + | Address | [address] | | | [place] [address] | + + + | Home Phone [...] Author | [facility] | | | and [place] | + + + | Organization | [facility] | [...] Team Providers + +------+ + | Care Shale Miner Blasting Name | Role | Phone | + [...] NEPHROLOGY [address] | MD [address] | (Asymptomatic) | | | | [address] | [address] [place] | | | | | [place], [place] | [place] [address] | | | | | [address] | [phone] | | | | | [phone] | | | +--------+ + + + [...] AM PDTHEMO progress note manually faxed to [facility] [place], e-faxed to [facility] Pediatric Nephrology on 09/30. Daniela Marquez MD - 09/20/2013 2:55 PM PDT Comprehensive Dialysis Monthly Note Date of visit: 09/20/2013 Dialysis Clinic: [facility] Mode of dialysis: Hemodialysis Dialysis prescription: [...] Date Noted ESRD (end stage renal disease) ([facility]) Priority: High Note Last Updated: 07/29/2013 Due to Henoch-Schonlein purpura. On hemodialysis, started July 2013. Prior on peritoneal dialysis, started 2012. Access: R chest catheter. Peritonitis, dialysis-associated ([facility]) 07/29/2013 Note Last Updated: 07/29/2013 Due to [...] living donor. Pt has been referred to [facility]. -pt will f/u with them next month [facility] Lianna Joy, [facility] Pediatric Nephrology documented in this encounter Plan of Treatment Not on filedocumented as of this encounter Visit Diagnoses + + | Diagnosis | + + | ESRD (end stage renal disease) (HCC) - Primary End stage renal disease | + + | Hypertension Unspecified essential hypertension | + + | Anemia in ESRD (end-stage renal disease) ([facility]) Anemia in chronic kidney disease | + + | Secondary hyperparathyroidism (HCC) Secondary hyperparathyroidism (of renal origin) | + + documented in this encounter"
--- OUTSIDE RECORDS SUMMARY | ~2019-07-14 | XMS | Encounter Summary ---
Demographics + + + | Address | [address] | | | [place] [address] | + + + | Home Phone [...] | [facility] | | | and [place]ana | + + + | Organization | [facility] | [...] Team Providers + +------+ + | Care Psychology Teacher Name | Role | Phone | [...] | | | | | malfunction, | [place] [address] | [address] | | | | | initial | [address] [place] | [place], | | | | | encounter | [place], [place] | [place] [address] | | | | | ([facility]) | [address] | Phone: | | | | | | Phone: | [phone] | | | | | | [phone] | Fax: | | | | | | Fax: | [phone] | | | | | | [phone] | | +--------+ + + + + [...] fistula | MD [address] | | | | | malfunction, | [place] | [place], | | | | | initial | [address] [place] | [place] [address] | | | | | encounter | [place], [place] | Phone: | | | | | ([facility]) | [address] | [phone] | | | | | Procedures | Phone: | Fax: | | | | | IR Procedure | [phone] | [phone] | | | | | [address] | Fax: | | | | | | NEEDLE/CATH | [phone] | | | | | | A-V [...] NEPHROLOGY [address] | MD [address] [place] | malfunction, initial | | | | [address] | [address] [place] | encounter (HCC) | | | | [place], [place] | [place] [address] | (Primary Dx) | | | | [address] | [phone] | | | | | [phone] | | | +--------+ + + + [...] | 03/07/2015 | | | | | ([facility]) | | + +---------+--------+ + + + [...]
--- OUTSIDE RECORDS SUMMARY | ~2019-07-14 | XMS | Encounter Summary ---
Demographics + + + | Address | [address] | | | [place] [address] | + + + | Home Phone [...] + | Author | [facility] | | | and [place] | + + + | Organization | [facility] | [...] Team Providers + +------+ + | Care Chess Instructor Name | Role | Phone | [...] NEPHROLOGY [address] | M, DO [address] | | | | | [address] | [place], [address] | | | | | [place], [place] | [place], [place] | | | | | [address] | [address] | | | | | [phone] | | | +--------+ + + + [...]
--- OUTSIDE RECORDS SUMMARY | ~2019-07-14 | XMS | Encounter Summary ---
Demographics + + + | Address | [address] | | | [place] [address] | + + + | Home Phone [...] | | | | | [place] [address] | | + + + + + | Thania Mallory | ECON | [address] | | | | | [place] [address] | | + + + + + | Deidra Weldon | ECON | [address] | | | | | [place] | | | | | [address] | | + + + + + Care Team Providers + +------+ + | Care Museum Specialist Name | Role | Phone | [...] Nephrology at | RN [address] [facility] | | | | | [place] | [facility] | | | | | [facility] | [place], [place] | | | | | [address] | [address] | | | | | [place] | | | | | | [facility], | | | | | | [address] [place] [address] | | | | | | [place], [place] | | | | | | [address] | | | | | | [phone] | | | +--------+ + + + [...] [place] | | | | | | [address] | | | | | | [phone] | | | | | | | | +--------+ + + + + documented as of this encounter Visit Diagnoses + + | Diagnosis | + + | 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
--- OUTSIDE RECORDS SUMMARY | ~2019-07-14 | XMS | Encounter Summary ---
[...] | | | | | [place] [address] | | + + + + + | Thania Mallory | ECON | [address] | | | | | [place] [address] | | + + + + + | Deidra Weldon | ECON | [address] | | | | | [place] | | | | | [address] | | + + + + + Care Team Providers + +------+ + | Care [place] Law Clerk Name | Role | Phone | [...] erpretation | Cardiology at | [address] [facility] | disease (HCC) | | | | [place] | [address] | (Primary Dx) | | | | [facility] | [place], [place] | | | | | [address] | [address] | | | | | [place] | [phone] | | | | | [facility] | | | | | | [address] [place] [address] | | | | | | [place] [address] | | | | | | [phone] | | | +--------+ + + + [...] Denise | | | | | | [place], [place] | | | | | | [address] | | | | | | [phone] | | | | | | | [...] | | | | | | ([facility]) Chronic | | | | | | kidney disease, | | | | | | stage V ([facility]) | | + +--------+ + + + documented in this encounter Visit Diagnoses + + | Diagnosis | + + | End-stage renal disease (HCC) - Primary End stage renal disease | + + documented in this encounter"
--- OUTSIDE RECORDS SUMMARY | ~2019-07-14 | XMS | Encounter Summary ---
Demographics + + + | Address | [address] | | | [place] [address] | + + + | Home Phone [...] Author | [facility] | | | and [place] | + + + | Organization | [facility] [...] Providers + +------+ + | Care Socket Puller Name | Role | Phone | [...] RN | | | | | [address] [facility] [address] | | | | | | [place] | | | | | | [address] | | | | | | [phone] | | | +--------+ + + + [...]
--- OUTSIDE RECORDS SUMMARY | ~2019-07-14 | XMS | Encounter Summary ---
Demographics + + + | Address | [address] | | | [place] [address] | + + + | Home Phone [...] | | | | | [place] [address] | | + + + + + | Thania Mallory | ECON | [address] | | | | | [place] [address] | | + + + + + | Deidra Weldon | ECON | [address] | | | | | [place] | | | | | [address] | | + + + + + Care Team Providers + +------+ + | Care Ethnology Professor Name | Role | Phone | [...] change | | | | Caro [address] [place], | [place], [place] | clinic appt) | | | | [place] [address] | [address] | | | | | [phone] | | | +--------+ + + + [...] [place] | | | | | | [address] | | | | | | [phone] | | | | | | | | +--------+ + + + + documented as of this encounter Visit Diagnoses Not on filedocumented in this encounter"
--- OUTSIDE RECORDS SUMMARY | ~2019-07-14 | XMS | Encounter Summary ---
Demographics + + + | Address | [address] | | | [place] [address] | + + + | Home Phone [...] + | Author | [facility] | | | and [place] | + + + | Organization | [facility] | [...] Providers + +------+ + | Care Manager Highway Name | Role | Phone | + [...] + | 11/15/ | Telephone | [facility] | George Torres RN | Lab Results | | 2019 | | [address] | | (Cytology report) | | | | [place] | | | | | | [address] | | | | | | [phone] | | | +--------+ + + + [...]
--- OUTSIDE RECORDS SUMMARY | ~2019-07-14 | XMS | Encounter Summary ---
Demographics + + + | Address | [address] | | | [place] [address] | + + + | Home Phone [...] | | | | | [place] [address] | | + + + + + | Thania Mallory | ECON | [address] | | | | | [place] [address] | | + + + + + | Deidra Weldon | ECON | [address] | | | | | [place] | | | | | [address] | | + + + + + Care Team Providers + +------+ + | Care Forest Ecologist Name | Role | Phone | + [...] | MEDICARE 2728 | | | | [facility] | | (Primary Dx) | | | | [address] | | | | | | [place] | | | | | | [facility] | | | | | | [address]th [facility], | | | | | | [place] [address] | | | | | | [phone] | | | +--------+------+ + + + [...] Denise | | | | | | [place], [place] | | | | | | [address] | | | | | | [phone] | | | | | | | [...] - | [address] | [place], [place] | | | IMMUNOGENETICS/TRANS | [...] - | [address] | [place], [place] | | | IMMUNOGENETICS/TRANS | [...] [facility] - | [address] | [place], [place] | | | IMMUNOGENETICS/TRANS | [...] | [facility] - | [address] | [place] [address] | | | IMMUNOGENETICS/TRANS | [address] [...] [facility] - | [address] | [place] [address] | | | IMMUNOGENETICS/TRANS | [address] | | | | [facility] | | | | + + + + + LIT HLA-A LOW RESDARWIN (12/20/2012 10:02 AM PDT) + + | Specimen | + + | Blood - Blood | + + + + + + + | Performing | Address | City/State/Zipcode | Phone Number | | Organization | | | | + + + + + | [facility] - | [address] | [place], [place] | | | IMMUNOGENETICS/TRANS | [...] - | [address] | [place], [place] | | | IMMUNOGENETICS/TRANS | [...] + + + | [facility] - | [address] | [place] [address] | | | IMMUNOGENETICS/TRANS | [address] [...] | [facility] - | [address] | [place] [address] | | | IMMUNOGENETICS/TRANS | [address] [...] [facility] | [address] | [place] [address] | | | SERVICES, | [address] [...] [facility] | [address] | [place] [address] | | | SERVICES, | [address] [...] | SERVICES, CORE | | effect on 7/19/13. | | + + + + + + + + | Performing | Address | City/State/Zipcode | Phone Number | | Organization | | | | + + + + + | [facility] | [address] | [place] [address] | | | SERVICES, CORE | LONG [...] [facility] | | | , SERUM | [facility],[address] | | [address]IV | | | | [address], [facility],[place] | | PTH - INTFC | | | | [address] | | | | | | [phone]. | | | | | | annalee, [...] [facility] | [address] | [place], [place] | | | UNIV PTH - INTFC | | [address] | | + + + + + [...] [facility] | [address] | [place] [address] | | | SERVICES, CORE | PARK [...] + + + + + | [facility] | [address] | [place] [address] | | | SERVICES, CORE | PARK [...] + | [facility] - | [address] | [place] [address] | | | [facility] | | | | + [...] [facility] | [address] | [place] [address] | | | SERVICES, CORE | PARK [...] | + + + + + | [facility] | [address] | [place] [address] | | | SERVICES, CORE | LONG [...] | + + + + + | [facility] | [address] | [place] [address] | | | SERVICES, CORE | PARK [...] + | [facility] - | [address] | [place] [address] | | | [place] | | | [...] at: | | | | | | http://www.cdc.gov/nchstp/tb/pubs/tbfactssheets/254317.htm | | | Test performed by: [facility] [address] | | [address] [place] [address] | | + + + + + + + + | Performing | Address | City/State/[facility] | Phone Number | | Organization | | | | + + + + + | [facility] | | | | [...] + + + + + | [facility] | [address] | [place] [address] | | | SERVICES, SPECIAL | PARK [...] gene at | DIAGNOSTIC | | nucleotide 17709. Please note that this assay only detects the | LABORATORIES | | [id number] point mutation and therefore a normal result [...] has been analyzed for the presence of [id number] | | | mutation in the prothrombin [...] | | Heterozygotes for the common prothrombin [id number] mutation constitute | | | approximately 2% of the normal white population (1,2). | | | References: 1.) Poort et al. Blood 88, 7405-5201 (1995). 2.) Ricardo | | | et al. Circulation 99, 999-1004 (1998). 3.) Al Montalvo, and | | | Chase. Amer J Clin Path 155, 439-47 (2000). This test was | | | developed and its performance characteristics determined by the [facility] | | | [facility]. It has | | | not been cleared or approved by the Food and Drug Administration. | | | FDA approval is not required for clinical use of this test, and | | | therefore validation was done as required under the requirements of | | | the Clinical Laboratory Improvement Act of 1988. The [facility] | | Diagnostic [facility] is a fully | | | licensed and/or accredited clinical laboratory under CLIA, CAP, and | | | the [facility]. Please note that our lab now [...] [facility] | [address] | [place] [address] | | | DIAGNOSTIC | [address] [...] | + + + + + | [facility] | [address] | [place] [address] | | | SERVICES, CORE | LONG [...] [facility] | [address] | [place] [address] | | | SERVICES, CORE | PARK [...] [facility] | [address] | [place] [address] | | | SERVICES, CORE | [address] | | | + + + + + INR (12/20/2012 8:39 AM PDT) + +-------+ + + + | Component | Value | Ref Range | Performed | Pathologist | | | | | At | Signature | + +-------+ + + + | INR | 0.98 | 0.90 - 1.20 INR | [facility] | | | | | | LABORATORY [...] | + + + + + | [facility] | [address] | [place] [address] | | | SERVICES, [facility] | [address] | | | + [...] | | | | | | Rajendra, [facility] [place] [address] | | | | | | [phone]. | | | | | | Faisal [...] [facility] | [address] | [place], [place] | | | UNIV PTH - INTFC | | [address] | | + + + + + [...] + + + + + | [facility] | [address] | [place] [address] | | | SERVICES, SPECIAL | PARK [...] + + + + | [facility] | [address] | [place] [address] | | | DIAGNOSTIC | [address] [...] HEPATITIS B | Negative | Negative | [facility] - | | | SURFACE | | [...] + | [facility] - | [address] | [place] [address] | | | [place] | | | [...] | + + + + + | [facility] - | [address] | [place] [address] | | | STRINGER | | | | + + + [...] + | [facility] - | [address] | [place] [address] | | | [facility] | | | | + + + [...] + | [facility] - | [address] | [place] [address] | | | [facility] | | | | + [...] less......Not | | | | | | Qqzttblf80.0-21.9 | | | | | | U/mL.........Indetermina [...] available | | | | | | [email or web address] | | | | | | vdx.Performed by [facility] | | | | | | [facility] [address] | | | | | | [facility], [place] [address] | | | | | | [phone]. | | | | | | com, Faisal Caraballo, | | | | | [...] [facility] | [address] | [place], [place] | | | UNIV PTH - INTFC | | [address] | | + + + + + [...] | | | Final CULTURE | | STRINGER | | | | RESULT:No growth (<1000 [...] + | [facility] - | [address] | [place] [address] | | | [place] | | | [...] | + + + + + | [facility] | [address] | [place] [address] | | | SERVICES, [facility] | [address] | | | + [...] by | | | | | | [employer] | [facility],[address] | | | | | | [address], [facility],[place] | | | | | | [address] | | | | | | [phone]. 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
--- OUTSIDE RECORDS SUMMARY | ~2019-07-14 | XMS | Encounter Summary ---
Demographics + + + | Address | [address] | | | [place] [address] | + + + | Home Phone [...] | | | | | [place] [address] | | + + + + + | Thania Mallory | ECON | [address] | | | | | [place] [address] | | + + + + + | Deidra Weldon | ECON | [address] | | | | | [place] | | | | | [address] | | + + + + + Care Team Providers + +------+ + | Care Repair Servicer Name | Role | Phone | [...] | | [address] | [facility] | | | | | [facility], | [place], [place] | | | | | [place] [address] | [address] | | | | | [phone] | | | +--------+ + + + [...] Denise | | | | | | [place], [place] | | | | | | [address] | | | | | | [phone] | | | | | | | | +--------+ + + + + documented as of this encounter Visit Diagnoses Not on filedocumented in this encounter"
--- OUTSIDE RECORDS SUMMARY | ~2019-07-14 | XMS | Encounter Summary ---
Demographics + + + | Address | [address] | | | [place] [address] | + + + | Home Phone [...] + | Cory Weldon | ECON | [address] | | | | | [place] [address] | | + + + + + | Thania Mallory | ECON | [address] | | | | | [place] [address] | | + + + + + | Deidra Weldon | ECON | [address] | | | | | [place] | | | | | [address] | | + + + + + Care Team Providers + +------+ + | Care Pediatric Genetic Counselor Name | Role | Phone [...] | Jonathan Gallagher, | Tx [facility] [address] | | | | | | [address] | Param Iraheta | | | | | | Keven | [place] | | | | | | [facility] | Children's | | | | | | [address] | [address] | | | | | | [address] | floor | | | | | | [place], | [place], [place] | | | | | | [place] | [address] | | | | | | [address] | Phone: | | | | | | Phone: | [phone] | | | | | | [phone] | | | | | | | Fax: | | | | | | | [phone] | | +--------+--------+ + + + + Encounter Details +--------+---------+ + + + | Date | Type | Department | Care Team | Description | +--------+---------+ + + + | 11/16/ | Office | Specialty Clinics | Sudhakar Joy | Allergic purpura- | | 2015 | Visit | at [facility] [address] | D, MD [address] | MEDICARE 2727 | | | | [address] | [address] | (Primary Dx); HSP | | | | [place] | [facility] [place] | ([facility] | | | | [facility], | [address] | purpura) nephritis; | | | | [facility] floor | [phone] | Anemia of chronic | | | | [place], [place] | | kidney failure, | | | | [address] | Rtx, [address] | unspecified stage | | | | [phone] | [address] | | | | | | Road [place], [place] | | | | | | [address] | | +--------+---------+ + + + Social [...] soon. Have your friend call Brittney about [phone] Sudhakar Joy MD documented in this encounter [...] MD Pediatric Nephrology and Hypertension Services [address] Mail code [facility] [place], [place] [id number] documented in this encounter Plan of Treatment +--------+ + + + + | Date | Type | Specialty | Care Team | Description | +--------+ + + + + | 05/04/ | Hospital | Adult Acute Care | El Starr MD | | | 2022 | Encounter | | [address] | | | | | | [place], [place] | | | | | | [address] | | | | | | [phone] | | | | | | | [...]
--- OUTSIDE RECORDS SUMMARY | ~2019-07-14 | XMS | Encounter Summary ---
Demographics + + + | Address | [address] | | | [place] [address] | + + + | Home Phone [...] Providers + +------+ + | Care Hide Selector Name | Role | Phone | + [...] NEPHROLOGY [address] | M, DO [address] | | | | | [address] | [place], [address] | | | | | [place], [place] | [place], [place] | | | | | [address] | [address] | | | | | [phone] | | | +--------+ + + + [...]
--- OUTSIDE RECORDS SUMMARY | ~2019-07-14 | XMS | Encounter Summary ---
Demographics + + + | Address | [address] | | | [place] [address] | + + + | Home Phone [...] | | | | | [place] [address] | | + + + + + | Thania Mallory | ECON | [address] | | | | | [place] [address] | | + + + + + | Deidra Weldon | ECON | [address] | | | | | [place] | | | | | [address] | | + + + + + [...] | | | | [address] [place] | [facility] | | | | | [address] [place], | [place], [place] | | | | | [place] [address] | [address] | | | | | [phone] | | | +--------+ + + + [...] Denise | | | | | | [place] | | | | | | [address] | | | | | | [phone] | | | | | | | | +--------+ + + + + documented as of this encounter Visit Diagnoses Not on filedocumented in this encounter"
--- OUTSIDE RECORDS SUMMARY | ~2019-07-14 | XMS | Encounter Summary ---
Demographics + + + | Address | [address] | | | [place] [address] | + + + | Home Phone [...] Author | [facility] | | | and [place] | + + + | Organization | [facility] [...] Providers + +------+ + | Care Fine Grade Bulldozer Operator Name | Role | Phone | [...] NEPHROLOGY [address] | M, DO [address] [place] | | | | | [address] | [place], [address] | | | | | [place], [place] | [place], [place] | | | | | [address] | [address] | | | | | [phone] | | | +--------+ + + + [...] this encounter Progress Notes Marilyn Palumbo - 05/29/2014 12:37 PM PDTManually faxed demographic sheet, copy of [employer] ce cards, progress note from 04/28/14 and 02/24/14 on 05/29/14 to Manny Whaley MD for up coming appointment. docume nted in this encounter Plan of Treatment Not on filedocumented as of this encounter Visit Diagnoses Not on filedocumented in this encounter"
--- OUTSIDE RECORDS SUMMARY | ~2019-07-14 | XMS | Encounter Summary ---
Demographics + + + | Address | [address] | | | [place] [address] | + + + | Home Phone [...] Author | [facility] | | | and [place] | + + + | Organization | [facility] | | | and [...] Providers + +------+ + | Care Foil Operator Name | Role | Phone | + +------+ + PCP | Unavailable | + +------+ + Encounter Details +--------+ + + + + | Date | Type | Department | Care Team | Description | +--------+ + + + + | 08/12/ | Hospital | [facility] | Conversion | ESRD (end stage | | 2016 | Encounter | CENTER CV INTRA OP | Transaction, | renal disease) | | | | [address] | Provider Unknown | ([facility]); ESRD on | | | | [place], [place] | | hemodialysis ([facility]) | | | | [address] | (Fax) | | | | | [phone] | Doyle Diaz MD | | +--------+ [...] 08/13/151114 Date of Service: 08/13/151114 Status: Signed Assistant Chief Engineer: Taylor Acuna RN (Registered Nurse) Pt discharged [...] ANGIOPLASTY AV FISTULA VENOUS | | | BOX MACHINE OPERATOR: Doyle Diaz MD CONSENT: The risks, [...] guidewire combination, a 4 | | | Tristanian angled catheter was advanced and positioned into [...] a | | | guidewire, a 6 Tristanian sheath was advanced and positioned into the [...] a | | | guidewire, a 7 Tristanian sheath was advanced and positioned into the [...] IR ANGIOPLASTY | | AV FISTULA VENOUS BOX MACHINE OPERATOR: Doyle Diaz MD CONSENT: The risks, [...] catheter guidewire combination, a | | 4 Tristanian angled catheter was advanced and positioned into [...] | | ANGIOPLASTY:Over a guidewire, a 6 Tristanian sheath was advanced and positioned into the [...] Over | | a guidewire, a 7 Tristanian sheath was advanced and positioned into the [...] ANGIOPLASTY AV FISTULA VENOUS | | | BOX MACHINE OPERATOR: Doyle Diaz MD CONSENT: The risks, [...] guidewire combination, a 4 | | | Tristanian angled catheter was advanced and positioned into [...] a | | | guidewire, a 6 Tristanian sheath was advanced and positioned into the [...] a | | | guidewire, a 7 Tristanian sheath was advanced and positioned into the [...] IR ANGIOPLASTY | | AV FISTULA VENOUS BOX MACHINE OPERATOR: Doyle Diaz MD CONSENT: The risks, [...] catheter guidewire combination, a | | 4 Tristanian angled catheter was advanced and positioned into [...] | | ANGIOPLASTY:Over a guidewire, a 6 Tristanian sheath was advanced and positioned into the [...] Over | | a guidewire, a 7 Tristanian sheath was advanced and positioned into the [...] LAB | | | | performed at [facility];[address] | | | | | | [address];[place], [place] | | | | | | [address] | | | | + + + [...] | ESRD (end stage renal disease) ([facility]) End stage renal disease | + + | ESRD on hemodialysis (HCC) End stage renal disease | + + documented in this encounter"
--- OUTSIDE RECORDS SUMMARY | ~2019-07-14 | XMS | Encounter Summary ---
Demographics + + + | Address | [address] | | | [place] [address] | + + + | Home Phone [...] | Author | [facility] | | | and [place] | + + + | Organization | [facility] | [...] Team Providers + +------+ + | Care Addiction Counselor Name | Role | Phone | + +------+ + PCP | Unavailable | + +------+ + Encounter Details +--------+ + + + + | Date | Type | Department | Care Team | Description | +--------+ + + + + | 06/11/ | Hospital | [facility] | | | | 2008 - | Encounter | MED CTR OP REHAB | | | | | | [address] | | | | 07/03/ | | [place] [address] | | | | 2008 | | [phone] | | | +--------+ + + + [...]
--- OUTSIDE RECORDS SUMMARY | ~2019-07-14 | XMS | Encounter Summary ---
Demographics + + + | Address | [address] | | | [place] [address] | + + + | Home Phone [...] | | | | | [place] [address] | | + + + + + | Thania Mallory | ECON | [address] | | | | | [place] [address] | | + + + + + | Deirda Weldon | ECON | [address] | | | | | [place] | | | | | [address] | | + + + + + Care Team Providers + +------+ + | Care Pulmonary Specialist Name | Role | Phone | [...] update | | | | Caro [place], | [place], [place] | from pt's mom) | | | | [place] [address] | [address] | | | | | [phone] | | | +--------+ + + + [...] Denise | | | | | | [place] | | | | | | [address] | | | | | | [phone] | | | | | | | | +--------+ + + + + documented as of this encounter Visit Diagnoses Not on filedocumented in this encounter"
--- OUTSIDE RECORDS SUMMARY | ~2019-07-14 | XMS | Encounter Summary ---
Demographics + + + | Address | [address] | | | [place] [address] | + + + | Home Phone [...] | | | | | [place] [address] | | + + + + + | Thania Mallory | ECON | [address] | | | | | [place] [address] | | + + + + + | Deidra Weldon | ECON | [address] | | | | | [place] | | | | | [address] | | + + + + + Care Team Providers + +------+ + | Care Spray Mixer Name | Role | Phone | [...] | | | | [address] [place] | [facility] | | | | | [address] [place], | [place], [place] | | | | | [place] [address] | [address] | | | | | [phone] | | | +--------+ + + + [...] [place] | | | | | | [address] | | | | | | [phone] | | | | | | | | +--------+ + + + + documented as of this encounter Visit Diagnoses Not on filedocumented in this encounter"
--- OUTSIDE RECORDS SUMMARY | ~2019-07-14 | XMS | Encounter Summary ---
Demographics + + + | Address | [address] | | | [place] [address] | + + + | Home Phone [...] + | Author | [facility] | | | and [place] | + + + | Organization | [facility] [...] Providers + +------+ + | Care Senior Abap Developer Name | Role | Phone | + +------+ + PCP | Unavailable | + +------+ + Encounter Details +--------+ + + + + | Date | Type | Department | Care Team | Description | +--------+ + + + + | 05/14/ | Hospital | [facility] | Michelle Benitez, | | | 2008 | Encounter | HOSPITAL EMERGENCY | [address] | | | | | C[address] | [place], [place] | | | | | [address] [place] | [address] | | | | | [address] | [phone] | | | | | [phone] | | | +--------+ + + + [...]
--- OUTSIDE RECORDS SUMMARY | ~2019-07-14 | XMS | Encounter Summary ---
Demographics + + + | Address | [address] | | | [place] [address] | + + + | Home Phone [...] | Author | [facility] | | | and [place] | + + + | Organization | [facility] | | [...] Team Providers + +------+ + | Care Smocking Machine Operator Name | Role | Phone [...] NEPHROLOGY [address] | M, DO [address] | | | | | [address] | [place] | | | | | [place], [place] | [place], [place] | | | | | [address] | [address] | | | | | [phone] | | | +--------+ + + + [...] repeatedly declines. The entire dialysis team including speeder worker have had mult iple conversations with [...] attempt to continue to make efforts to insurance counselor her about lifestyle modification an d [...]
--- OUTSIDE RECORDS SUMMARY | ~2019-07-14 | XMS | Encounter Summary ---
Demographics + + + | Address | [address] | | | [place] [address] | + + + | Home Phone [...] | [facility] | | | and [place] | + + + | Organization | [facility] | [...] Team Providers + +------+ + | Care Thread Puller Name | Role | Phone | [...] NEPHROLOGY [address] | M, DO [address] | | | | | [address] | [place] | | | | | [place], [place] | [place], [place] | | | | | [address] | [address] | | | | | [phone] | | | +--------+ + + + [...] note from 12/30/13 to [facility] (fx: [phone]) on 01/20/14. documented in this encounter Plan of Treatment Not on filedocumented as of this encounter Visit Diagnoses Not on filedocumented in this encounter"
--- OUTSIDE RECORDS SUMMARY | ~2019-07-14 | XMS | Encounter Summary ---
Demographics + + + | Address | [address] | | | [place] [address] | + + + | Home Phone [...] | Author | [facility] | | | and [place]ana | + + + | Organization | [facility] [...] Team Providers + +------+ + | Care Regulator Pin Inserter Name | Role | Phone | + [...] NEPHROLOGY [address] | M, DO [address] | | | | | [address] | [place] | | | | | [place], [place] | [place], [place] | | | | | [address] | [address] | | | | | [phone] | | | +--------+ + + + [...]
--- OUTSIDE RECORDS SUMMARY | ~2019-07-14 | XMS | Encounter Summary ---
Demographics + + + | Address | [address] | | | [place] [address] | + + + | Home Phone [...] | Author | [facility] | | | and Josephana | + + + | Organization | [facility] | [...] Providers + +------+ + | Care Dry Cleaning Teacher Name | Role | Phone | [...] NEPHROLOGY [address] | M, DO [address] | | | | | [address] | [place] | | | | | [place], [place] | [place], [place] | | | | | [address] | [address] | | | | | [phone] | | | +--------+ + + + [...]
--- OUTSIDE RECORDS SUMMARY | ~2019-07-14 | XMS | Encounter Summary ---
Demographics + + + | Address | [address] | | | [place] [address] | + + + | Home Phone [...] | | | | | [place] [address] | | + + + + + | Thania Mallory | ECON | [address] | | | | | [place] [address] | | + + + + + | Deidra Weldon | ECON | [address] | | | | | [place] | | | | | [address] | | + + + + + Care Team Providers + +------+ + | Care Clinical Research Analyst Name | Role | Phone | + +------+ + | Shahid Camargo MD | PCP | | + +------+ + Encounter Details +--------+ + + + + | Date | Type | Department | Care Team | Description | +--------+ + + + + | 12/20/ | Hospital | Radiology at [facility] | | | | 2012 | Encounter | [address] [facility] | | | | | | [place] | | | | | | [facility], | | | | | | [address] [place] [address] | | | | | | [place], [place] | | | | | | [address] | | | | | | [phone] | | | +--------+ + + + [...] | Encounter | | [address] | | | | | | [place], [place] | | | | | | [address] | | | | | | [phone] | | | | | | | [...] | e | 9:29 AM | MEDICARE 0878 | procedure are in the | | [...] | | + +---------+ + + | [facility] DEPARTMENT OF | | | | | RADIOLOGY | | | | + +---------+ + + documented in this encounter Visit Diagnoses + + | Diagnosis | + + | 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
--- OUTSIDE RECORDS SUMMARY | ~2019-07-14 | XMS | Encounter Summary ---
Demographics + + + | Address | [address] | | | [place] [address] | + + + | Home Phone [...] | Author | [facility] | | | and Josephana | + + + | Organization | [facility] [...] Team Providers + +------+ + | Care Oral And Maxillofacial Surgery Name | Role | Phone | + [...] + + | 11/12/ | Telephone | [facility] | Silvia Rabago | DME (carlie, cmn, | | 2018 | | [address] | ABRIL Hernandez | [facility]) | | | | [place] | | | | | | [address] | | | | | | [phone] | | | +--------+ + + + [...]
--- OUTSIDE RECORDS SUMMARY | ~2019-07-14 | XMS | Encounter Summary ---
Demographics + + + | Address | [address] | | | [place] [address] | + + + | Home Phone [...] | | | | | [place] [address] | | + + + + + | Thania Mallory | ECON | [address] | | | | | [place] [address] | | + + + + + | Deidra Weldon | ECON | [address] | | | | | [place] | | | | | [address] | | + + + + + Care Team Providers + +------+ + | Care Pouch Maker Name | Role | Phone | [...] Shun | | | | | [address] | [facility] | | | | | [place], [place] | [place] [address] | | | | | [address] | [phone] | | | | | | | [...] | | | | | | [place], [place] | | | | | | [address] | | | | | | [phone] | | | | | | | | +--------+ + + + + documented as of this encounter Visit Diagnoses Not on filedocumented in this encounter"
--- OUTSIDE RECORDS SUMMARY | ~2019-07-14 | XMS | Encounter Summary ---
Demographics + + + | Address | [address] | | | [place] [address] | + + + | Home Phone [...] Author | [facility] | | | and Josephana | + + + | Organization | [facility] | | | [...] Team Providers + +------+ + | Care Claims Support Specialist Name | Role | Phone [...] [address] | M, DO [address] | | | | | [address] | [place] | | | | | [place], [place] | [place], [place] | | | | | [address] | [address] | | | | | [phone] | | | +--------+ + + + [...] [facility], Sudhakar Joy MD at [facility], Doyle Diaz MD (fx: [phone]) on 08/31/15.Electronically signed by Marilyn Palumbo at [...] with an AVF venous stenosis, and had FACILITY ADMINISTRATOR with an Alysia Castillo last week. Apparently [...] uated for a possible renal allograft at [facility].honestly, given her recent suboptimal compliance with fluid gains, hyperphosphatemia, and missed treatments I think anitha quarles would be at high risk for graft loss from noncompliance? Will attempt to get in touch wit h Dr. Joy, Pediatric Nephrology. 4. Will recheck her in one week. I appreciate Dr. Diaz's help with her recent fistulogram . CC: [place] Fina Joy M.D., Pediatric Nephrology, [facility] Doyle Diaz M.D., IR, [facility] documented in thi s encounter Plan of Treatment Not on filedocumented as of this encounter Visit Diagnoses + + | Diagnosis | + + | ESRD (end stage renal disease) (HCC) - Primary End stage renal disease | + + documented in this encounter"
--- OUTSIDE RECORDS SUMMARY | ~2019-07-14 | XMS | Encounter Summary ---
Demographics + + + | Address | [address] | | | [place] [address] | + + + | Home Phone [...] | | | | | [place] [address] | | + + + + + | Thania Mallory | ECON | [address] | | | | | [place] [address] | | + + + + + | Deidra Weldon | ECON | [address] | | | | | [place] | | | | | [address] | | + + + + + Care Team Providers + +------+ + | Care Windows Software Engineer Name | Role | Phone [...] | | | [address] | [facility] | | | | | [facility], | [place], [place] | | | | | [place] [address] | [address] | | | | | [phone] | | | +--------+ + + + [...] Denise | | | | | | [place], [place] | | | | | | [address] | | | | | | [phone] | | | | | | | | +--------+ + + + + documented as of this encounter Visit Diagnoses Not on filedocumented in this encounter"
--- OUTSIDE RECORDS SUMMARY | ~2019-07-14 | XMS | Encounter Summary ---
Demographics + + + | Address | [address] | | | [place] [address] | + + + | Home Phone [...] [facility] | | | and Josephana | + + + | Organization | [facility] | [...] Providers + +------+ + | Care Web Editor Name | Role | Phone | [...] | | [address] | [place] | | | | | [place], [place] | [place], [place] | | | | | [address] | [address] | | | | | [phone] | | | +--------+--------+ + + + [...]
--- OUTSIDE RECORDS SUMMARY | ~2019-07-14 | XMS | Encounter Summary ---
Demographics + + + | Address | [address] | | | [place] [address] | + + + | Home Phone [...] | Author | [facility] | | | and Josephana | + + + | Organization | [facility] [...] Providers + +------+ + | Care Rn Ambulatory Name | Role | Phone | + [...] | | stage renal | [address] | [address] [place] [address] | | | | | disease) | [address] | [place] | | | | | ([facility]) | [address] | [address] [place] | | | | | Anemia in | [place], [place] | [place] | | | | | ESRD | [address] | [address] Phone: | | | | | (end-stage | Phone: | [phone] | | | | | renal | [phone] | Fax: | | | | | disease) | Fax: | [phone] | | | | | ([facility]) | [phone] | | | | | | Procedures [...] | | [address] | [place] | (Primary Dx) | | | | [place], [place] | [place], [place] | | | | | [address] | [address] | | | | | [phone] | | | +--------+ + + + [...] have offered her arrangements via the Renal SENIOR SOFTWARE DEVELOPMENT ENGINEER to obtain some meaningful counseling, but she [...] Will recheck her in 2 weeks. : [place] Fina Joy M.D., Pediatric Nephrology, [facility] documented in t his encounter Plan of Treatment Not on filedocumented as of this encounter Visit Diagnoses + + | Diagnosis | + + | ESRD (end stage renal disease) (HCC) - Primary End stage renal disease | + + documented in this encounter"
--- OUTSIDE RECORDS SUMMARY | ~2019-07-14 | XMS | Encounter Summary ---
Demographics + + + | Address | [address] | | | [place] [address] | + + + | Home Phone [...] | Author | [facility] | | | and Josephana | + + + | Organization | [facility] [...] Providers + +------+ + | Care Senior Biostatistician Name | Role | Phone | + +------+ + PCP | Unavailable | + +------+ + Encounter Details +--------+ + + + + | Date | Type | Department | Care Team | Description | +--------+ + + + + | 04/07/ | Hospital | [facility] | Conversion | | | 2015 | Encounter | [facility]ENTER [facility] | Transaction, | | | | | CLINIC [address] | Provider Unknown | | | | | [place], [place] | [phone] | | | | | [address] | | | | | | [phone] | | | +--------+ + + + [...] EXTERNAL LAB | | Testing performed at [address];[place] [address] MRSA PCR | | | NEGATIVE Testing performed at | | | [address];[place] [address] | | + + + + +---------+ [...] | LAB | | | | [address];[place], [place] | | | | | | [address] | | | | + + + [...] [place];[address] | | | | | | [address];[place], [place] | | | | | | [address] | | | | + + + [...] [place] | | | | | | [address] | | | | + + + + + + | Red Blood | 3.67 (L)Comment: Testing | 3.70 - 5.10 | EXTERNAL | | | Cells | performed at [facility] | M/uL | LAB | | | Counted | [address];[place] | | | | | | [address] | | | | + + + + + + | Hemoglobin | 13.0Comment: Testing | 11.3 - 15.5 | EXTERNAL | | | | performed at [facility] | g/dL | LAB | | | | [address];[place] | | | | | | [address] | | | | + + + + + + | Hematocrit, | 38.3Comment: Testing | 34.0 - 46.0 % | EXTERNAL | | | POC | performed at [facility] | | LAB | | | | [address];[place] | | | | | | [address] | | | | + + + + + + | MCV | 104.3 (H)Comment: | 80.0 - 100.0 fl | EXTERNAL | | | | Testing performed at | | LAB | | | | [facility] | | [address];[place] [address] | | | | + + + + + + | MCH | 35.4 (H)Comment: Testing | 27.0 - 34.0 pg | EXTERNAL | | | | performed at [facility] | | LAB | | | | [address];[place] | | | | | | [address] | | | | + + + + + + | MCHC | 33.9Comment: Testing | 32.0 - 35.5 | EXTERNAL | | | | performed at [facility] | g/dL | LAB | | | | [address];[place] | | | | | | [address] | | | | + + + + + + | RDW-CV | 48.1Comment: Testing | 37 - 53 fl | EXTERNAL | | | | performed at [facility] | | LAB | | | | [address];[place] | | | | | | [address] | | | | + + + + + + | Platelet | 157Comment: Testing | 150 - 400 K/uL | EXTERNAL | | | Count | performed at [facility] | | LAB | | | Plasma | [address];[place] | | | | | | [address] | | | | + + + + + + | MPV | 9.3Comment: Testing | fl | EXTERNAL | | | | performed at [facility] | | LAB | | | | [address];[place] | | | | | | [address] | | | | + + + + + + | Differentia | AUTOMATEDComment: | | EXTERNAL | | | l Type | Testing performed at | | LAB | | | | [facility];[address] | [address];[place] [address] | | | | + + + + + + | % Segmented | 55.8Comment: Testing | % | EXTERNAL | | | | performed at [facility] | | LAB | | | Neutrophils | [address];[place] | | | | | | [address] | | | | + + + + + + | % | 35.8Comment: Testing | % | EXTERNAL | | | Lymphocytes | performed at [facility] | | LAB | | | | [address];[place] | | | | | | [address] | | | | + + + + + + | % Monocytes | 6.0Comment: Testing | % | EXTERNAL | | | | performed at [facility] | | LAB | | | | [address];[place] | | | | | | [address] | | | | + + + + + + | % | 1.9Comment: Testing | % | EXTERNAL | | | Eosinophils | performed at [facility];[address] | | LAB | | | | [address];[place] | | | | | | [address] | | | | + + + + + + | % Basophils | 0.5Comment: Testing | % | EXTERNAL | | | | performed at [facility] | | LAB | | | | [address];[place] | | | | | | [address] | | | | + + + + + + | Absolute | 2.8Comment: Testing | 1.9 - 7.4 K/uL | EXTERNAL | | | Segmented | performed at [facility];[address] | | LAB | | | Neutrophils | [address];[place] | | | | | | [address] | | | | + + + + + + | Absolute | 1.8Comment: Testing | 1.0 - 3.9 K/uL | EXTERNAL | | | Lymphocytes | performed at [facility] | | LAB | | | | [address];[place] | | | | | | [address] | | | | + + + + + + | Absolute | 0.3Comment: Testing | 0 - 0.8 K/uL | EXTERNAL | | | Monocytes | performed at [facility];[address] | | LAB | | | | [address];[place] | | | | | | [address] | | | | + + + + + + | Absolute | 0.1Comment: Testing | 0 - 0.5 K/uL | EXTERNAL | | | Eosinophils | performed at [facility];[address] | | LAB | | | | [address];[place] | | | | | | [address] | | | | + + + + + + | Absolute | 0.0Comment: Testing | 0 - 0.1 K/uL | EXTERNAL | | | Basophils | performed at [facility] | | LAB | | | | [address];[place] | | | | | | [address] | | | | + + + [...] | LAB | | | | [address];[place], [place] | | | | | | [address] | | | | + + + [...] [place] | | | | | | [address] | | | | + + + + + + | K | 3.3 (L)Comment: Testing | 3.5 - 4.9 | EXTERNAL | | | | performed at [facility] | mmol/L | LAB | | | | [address];[place] | | | | | | [address] | | | | + + + + + + | Cl | 99Comment: Testing | 99 - 109 mmol/L | EXTERNAL | | | | performed at [facility];[address] | | LAB | | | | [address];[place] | | | | | | [address] | | | | + + + + + + | CO2 | 29Comment: Testing | 23 - 32 mmol/L | EXTERNAL | | | | performed at [facility];[address] | | LAB | | | | [address];[place] | | | | | | [address] | | | | + + + + + + | Anion Gap | 13Comment: Testing | 5 - 20 mmol/L | EXTERNAL | | | | performed at [facility];[address] | | LAB | | | | [address];[place] | | | | | | [address] | | | | + + + + + + | Glucose, | 92Comment: Testing | 65 - 99 mg/dL | EXTERNAL | | | Fasting | performed at [facility] | | LAB | | | | [address];[place] | | | | | | [address] | | | | + + + + + + | BUN | 30 (H)Comment: Testing | 8 - 25 mg/dL | EXTERNAL | | | | performed at [facility] | | LAB | | | | [address];[place] | | | | | | [address] | | | | + + + + + + | Creatinine | 7.21 (H)Comment: Testing | 0.50 - 1.00 | EXTERNAL | | | | performed at [facility] | mg/dL | LAB | | | | [address];[place] | | | | | | [address] | | | | + + + + + + | BUN/Creatin | 4Comment: Testing | | EXTERNAL | | | ine Ratio | performed at [facility] | | LAB | | | | [address];[place] | | | | | | [address] | | | | + + + + + + | Calcium | 8.3 (L)Comment: NOTE NEW | 8.5 - 10.5 | EXTERNAL | | | | REFERENCE RANGETesting | mg/dL | LAB | | | | performed at [facility] | | | | | | [address];[place] | | | | | | [address] | | | | + + + [...] [place] | | | | | | [address] | | | | + + + [...]
--- OUTSIDE RECORDS SUMMARY | ~2019-07-14 | XMS | Encounter Summary ---
Demographics + + + | Address | [address] | | | [place] [address] | + + + | Home Phone [...] Author | [facility] | | | and Josephana | + + + | Organization | [facility] | [...] Team Providers + +------+ + | Care Curriculum Coordinator Name | Role | Phone | [...] | | [address] | [place], [address] | | | | | [place], [place] | [place], [place] | | | | | [address] | [address] | | | | | [phone] | | | +--------+--------+ + + + [...]
--- OUTSIDE RECORDS SUMMARY | ~2019-07-14 | XMS | Encounter Summary ---
Demographics + + + | Address | [address] | | | [place] [address] | + + + | Home Phone [...] | | | | | [place] [address] | | + + + + + | Thania Malloyr | ECON | [address] | | | | | [place] [address] | | + + + + + | Deidra Weldon | ECON | [address] | | | | | [place] | | | | | [address] | | + + + + + Care Team Providers + +------+ + | Care Pastry Mixer Name | Role | Phone | [...] | | | [place] | [facility] | | | | | [facility] | [place], [place] | | | | | [address] | [address] | | | | | [place] | [phone] | | | | | [facility], | | | | | | [address] [place] [address] | | | | | | [place], [place] | | | | | | [address] | | | | | | [phone] | | | +--------+ + + + [...] | | | | | | [place], [place] | | | | | | [address] | | | | | | [phone] | | | | | | | [...] + | HEMOGLOBIN | 11.6 (A) | 12 - 15 | BLUE [...] | [address] | [place] [address] | [phone] | | HOSPITAL | | | | [...] | [address] | [place] [address] | [phone] | | HOSPITAL | | | | [...] | [address] | [place] [address] | [phone] | | HOSPITAL | | | | [...] [address] | [place] [address] | [phone] | | HOSPITAL | | | | [...] [address] | [place] [address] | [phone] | | HOSPITAL | | | | [...] | [address] | [place] [address] | [phone] | | HOSPITAL | | | | + + + + + documented in this encounter Visit Diagnoses Not on filedocumented in this encounter"
--- OUTSIDE RECORDS SUMMARY | ~2019-07-14 | XMS | Encounter Summary ---
Demographics + + + | Address | [address] | | | [place] [address] | + + + | Home Phone [...] Author | [facility] | | | and Josephana | + + + | Organization | [facility] | [...] Team Providers + +------+ + | Care Control Chemist Name | Role | Phone | [...] [address] | [place], [address] | | | | | [place], [place] | [place], [place] | | | | | [address] | [address] | | | | | [phone] | | | +--------+--------+ + + + [...]
--- OUTSIDE RECORDS SUMMARY | ~2019-07-14 | XMS | Encounter Summary ---
Demographics + + + | Address | [address] | | | [place] [address] | + + + | Home Phone [...] | | | | | [place] [address] | | + + + + + | Thania Mallory | ECON | [address] | | | | | [place] [address] | | + + + + + | Deidra Weldon | ECON | [address] | | | | | [place] | | | | | [address] | | + + + + + Care Team Providers + +------+ + | Care Wheel Setter Name | Role | Phone | [...] | | | | [address] | [facility] | | | | | [facility], | [place], [place] | | | | | [place] [address] | [address] | | | | | [phone] | | | +--------+ + + + [...] Denise | | | | | | [place], [place] | | | | | | [address] | | | | | | [phone] | | | | | | | | +--------+ + + + + documented as of this encounter Visit Diagnoses Not on filedocumented in this encounter"
--- OUTSIDE RECORDS SUMMARY | ~2019-07-14 | XMS | Encounter Summary ---
Demographics + + + | Address | [address] | | | [place] [address] | + + + | Home Phone [...] | Author | [facility] | | | and Josephana | + + + | Organization | [facility] | | [...] Providers + +------+ + | Care Assembly Line Machine Operator Name | Role | Phone [...] | NEPHROLOGY [address] | | | | | [address] | [address] [place] | | | | | [place], [place] | [place] [address] | | | | | [address] | [phone] | | | | | [phone] | | | +--------+ + + + [...]
--- OUTSIDE RECORDS SUMMARY | ~2019-07-14 | XMS | Encounter Summary ---
Demographics + + + | Address | [address] | | | [place] [address] | + + + | Home Phone [...] Providers + +------+ + | Care Senior Network Architect Name | Role | Phone [...] | Encounter | JOY | MD Emanuel [address] | | | | | [address] | [facility] | | | | | [address] | [place], [place] | | | | | [place], [place] | [address] | | | | | [address] | [phone] | | | | | [phone] | | | +--------+ + + + [...]
--- OUTSIDE RECORDS SUMMARY | ~2019-07-14 | XMS | Encounter Summary ---
Demographics + + + | Address | [address] | | | [place] [address] | + + + | Home Phone [...] | Author | [facility] | | | and Josephana | + + + | Organization | [facility] | | | [...] Providers + +------+ + | Care Hat Block Bench Hand Name | Role | Phone | [...] [address] [place] | [place] [address] | to return call to | | | | [address] | [phone] | complete intake | | | | [address] | | quest.) | | | | [phone] | | | +--------+ + + + [...]
--- OUTSIDE RECORDS SUMMARY | ~2019-07-14 | XMS | Encounter Summary ---
Demographics + + + | Address | [address] | | | [place] [address] | + + + | Home Phone [...] Author | [facility] | | | and Josephana | + + + | Organization | [facility] | [...] Team Providers + +------+ + | Care Awning Installer Name | Role | Phone | [...] | | KIDNEY TRANSPLANT | [place] [address] [place], | | | | | [address] [place] | [place] [address] | | | | | [address] [place], [place] | [phone] | | | | | [address] | | | | | | [phone] | | | +--------+ + + + [...]
--- OUTSIDE RECORDS SUMMARY | ~2019-07-14 | XMS | Encounter Summary ---
Demographics + + + | Address | [address] | | | [place] [address] | + + + | Home Phone [...] + | Author | [facility] | | | and Josephana | + + + | Organization | [facility] | | | and Jospehana | + + + | Address | [...] Team Providers + +------+ + | Care Rebar Bender Name | Role | Phone | [...] | stage renal | [address] | [address] [place] [address] | | | | | disease) | Shun Griffin | [place] | | | | | (HCC) | [address] | [address] [place] | | | | | Anemia in | [place], [place] | [place], [place] | | | | | ESRD | [address] | [address] Phone: | | | | | (end-stage | Phone: | [phone] | | | | | renal | [phone] | Fax: | | | | | disease) | Fax: | [phone] | | | | | ([facility]) | [phone] | | | | | | Procedures [...] | | [address] | [place] | (Primary Dx) | | | | [place], [place] | [place], [place] | | | | | [address] | [address] | | | | | [phone] | | | +--------+ + + + [...] She was counseled extensively by myself, the [facility] health charge nurse, Elisabeth Quijano RN, and [facility] medical student Yefri Bean MS III, about lifestyle modification, compliance, and her potential risk for increased her vascular morbidity, mortality. 2. 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 I discussed this wi th the renal MEDICAL ATTENDANT. 3. Monthly lab was reviewed with the patient. 4. Long-term prognosis remains poor, due to her poor to no insight into her chronic health conditions, or health maintenance. : [place] Fina Alonso MD, PhD documented in thi s encounter Plan of Treatment Not on filedocumented as of this encounter Visit Diagnoses + + | Diagnosis | + + | ESRD (end stage renal disease) (HCC) - Primary End stage renal disease | + + documented in this encounter"
--- OUTSIDE RECORDS SUMMARY | ~2019-07-14 | XMS | Encounter Summary ---
Demographics + + + | Address | [address] | | | [place] [address] | + + + | Home Phone [...] Author | [facility] | | | and Josephana | + + + | Organization | [facility] | | | and [...] Providers + +------+ + | Care Steel Molder Name | Role | Phone | [...] NEPHROLOGY [address] | MD [address] | | | | | [address] | [address] [place] | | | | | [place], [place] | [place] [address] | | | | | [address] | [phone] | | | | | [phone] | | | +--------+ + + + [...]
--- OUTSIDE RECORDS SUMMARY | ~2019-07-14 | XMS | Encounter Summary ---
Demographics + + + | Address | [address] | | | [place] [address] | + + + | Home Phone [...] | | | | | [place] [address] | | + + + + + | Thania Mallory | ECON | [address] | | | | | [place] [address] | | + + + + + | Deidra Weldon | ECON | [address] | | | | | [place] | | | | | [address] | | + + + + + Care Team Providers + +------+ + | Care Supply Chain Project Manager Name | Role | Phone | + +------+ + | Jonathan Alonso MD | PCP | | + +------+ + Encounter Details +--------+ + + + + | Date | Type | Department | Care Team | Description | +--------+ + + + + | 01/20/ | Hospital | Radiology at [facility] | | | | 2014 | Encounter | [address] | | | | | | [place] | | | | | | [facility] [place] [facility], | | | | | | [address] [facility] | | | | | | [place], [place] | | | | | | [address] | | | | | | [phone] | | | +--------+ + + + [...] Denise | | | | | | [place], [place] | | | | | | [address] | | | | | | [phone] | | | | | | | [...] | + +---------+ + + | [facility] DEPARTMENT OF | | | [...]
--- OUTSIDE RECORDS SUMMARY | ~2019-07-14 | XMS | Encounter Summary ---
Demographics + + + | Address | [address] | | | [place] [address] | + + + | Home Phone [...] | Author | [facility] | | | and Josephana | + + + | Organization | [facility] | | [...] Providers + +------+ + | Care Take Out Waitress Name | Role | Phone | + +------+ + | Tien Nicholson MD | PCP | | + +------+ + Encounter Details +--------+ + + + + | Date | Type | Department | Care Team | Description | +--------+ + + + + | 07/18/ | Hospital | [facility] | Mary Mckay, | Febrile illness; | | 2019 - | Encounter | [facility] | [address] | Recurrent pleural | | | | CARE FLOOR [address] | [place] [address] | effusion on right; | | 07/24/ | | [address] | [phone] | Hypoxia; History of | | 2019 | | [place], [place] | | end stage renal | | | | [address] | | disease; ESRD on | | | | [phone] | | hemodialysis ([facility]); | | | | | | Anemia in ESRD | | | | | | (end-stage renal | | | | | | disease) ([facility]); | | | | | | Moderate to severe | | | | | | pulmonary | | | | | | hypertension ([facility]); | | | | | | Chronic right-sided | | | | | | heart failure ([facility]); | | | | | | Pleural [...] 1306 Date of Service: 07/24/18905 Status: Signed Dietary Manager: Usha Martínez MD (Physician) [facility] Service: Hospitalist Discharge Summary Date of Admission: [...] renal disease on hemodialysis Monday and Monday (guideman Dr. 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, hypertension, asthma, chronic combined heart failure, severe pulmonary hypertension, cor pulmonale, moderate mitral valve regurgitation, severe tricuspid regurgit ation and other chronic comorbidities who was discharged on 05/2018 from [facility] with bilateral pleural effusions and ascites status post thoracentesis 1.5 L removed transudative and 4 L ascitic fluid removed who presents to [facility] ER from [place] [facility] for sepsis likely seco ndary to [...] after discharge and to follow -up with guideman and pet care worker within 1 to 2 weeks after discharge [...] Surgeon: Rik Simon MD; Location: [facility] MAIN OR; Service: Vascula r; Laterality: Left; cephalic AV FISTULA REPAIR Left 03/07/2014 Procedure: AV FISTULA - GRAFT REPAIR/REVISION; Surgeon: Rik Simon MD; Location: [facility] IN OR; Service: Vascular; Laterality: Left; DECLOT GRAFT Left 03/07/2014 Procedure: GRAFT - DECLOT; Surgeon: Rik Simon MD; Location: [facility] MAIN OR; Service: Vas cular; Laterality: Left; DIALYSIS FISTULA CREATION N/A 04/08/2014 Procedure: DIALYSIS CATHETER - INSERTION; Surgeon: Rik Simon MD; Location: [facility] OR ; Service: Vascular; Laterality: N/A; tunneled catheter LAPAROSCOPIC PERITONEAL DIALYSIS CATHETER INSERTION x2 LAPAROSCOPIC PERITONEAL DIALYSIS CATHETER INSERTION Right 07/2013 current dialysis access MWF dialysis RENAL BIOPSY RENAL BIOPSY Left 2003 SUPERFICIALIZATION OF AV FISTULA Left 06/24/2014 Procedure: AV FISTULA - SUPERFICIALIZATION; Surgeon: Rik Simon MD; Location: [facility] OR; Service: Vascular; Laterality: Left; Allergies [...] Date PHOS 4.1 07/24/2018 Results for DARA LOUIES ( ) as of 07/24/2018 13:05 Ref. Range 07/21/2018 14:00 FLUID TOTAL PROTEIN Latest Units: g/dL 4.2 FLUID LDH Latest Units: U/L 148 FLUID PH Unknown 7.48 Fluid culture w/gram stain [[id number]] Collected: 07/21/18 1400 Order Status: Completed Lab Status: Preliminary result Updated: 07/24/18 0948 Specimen: Body Fluid from Thoracic Fluid Specimen Description THORACIC FLUID GRAM STAIN NO CELLS OR ORGANISMS SEEN CULTURE NO GROWTH 3 DAYS Fluid total protein (Body fluid) [[id number]] Collected: 07/21/18 1400 Order Status: Completed Lab Status: Final result Updated: 07/21/18 165 Specimen: Body Fluid from Thoracentesis Fluid FLUID TOTAL PROTEIN 4.2 g/dL Comment: This is not a filbert grower validated sample type for this method. No reference ra nges have been established. Testing performed at [facility], [address] [place] [address] FLUID TP SOURCE THORACENTESIS Comment: Testing performed at [facility] [place] [address] Lactate dehydrogenase, body fluid [[id number]] Collected: 07/21/18 1400 Order Status: Completed Lab Status: Final result Updated: 07/21/181649 Specimen: Body Fluid from Thoracentesis Fluid FLUID LDH 148 U/L Comment: This is not a filbert grower validated sample type for this method. No reference ra nges have been established. Testing performed at [facility], [address] [place] [address] pH, body fluid [[id number]] Collected: 07/21/18 1400 Order Status: Completed Lab Status: Final result Updated: 07/21/18 1426 Specimen: Body Fluid from Thoracentesis Fluid FLUID PH 7.48 Comment: Testing performed at [facility] [place] [address] Blood Culture Set 1 [[id number]] Collected: 07/19/18 0853 Order Status: Completed Lab Status: Preliminary result Updated: 07/21/18 06 Specimen: Blood from Blood, peripheral draw Specimen Description BLOOD, PERIPHERAL DRAW SPECIAL REQUESTS RIGHT AC CULTURE NO GROWTH 2 DAYS Blood Culture Set 2 [[id number]] Collected: 07/19/18 0925 Order Status: Completed Lab Status: Preliminary result Updated: 07/21/18 06 Specimen: Blood from Blood, peripheral draw Specimen Description BLOOD, PERIPHERAL DRAW SPECIAL REQUESTS RT FOREARM CULTURE NO GROWTH 2 DAYS Respiratory Filmarray [[id number]] (Abnormal) Collected: 07/19/18 0132 Order Status: Completed [...] by Molecular Methodology Comment: Testing performed at [facility], [address] [place] [address] MRSA by PCR [[id number]] Collected: 07/19/18 013 Order Status: Completed Lab Status: Final result Updated: 07/19/18303 Specimen: Nasal from Nares(Nose) SOURCE NARES(NOSE) MRSA PCR NEGATIVE Comment: Testing performed at [facility] [place] [address];[place] [address] Disposition: Home Condition: Stable Code Status: Full [...] Follow up: Tien Nicholson MD [address] [facility], [address] [place] [address] Schedule an appointment as soon as possible for a visit in 1 week [facility] [address] [place] [address] Schedule an appointment as soon as possible for a visit in 1 week [facility] [address] [place] [address] Schedule an appointment as soon as [...] ([facility]) | protocol | | | | | [...] Date of Service: 07/24/18 1028 Status: Signed Dietary Manager: Iram Saleh RN (Registered Nurse) Disposition: [...] Date of Service: 07/24/18 1016 Status: Signed Dietary Manager: Christina Aguilar RN (Registered Nurse) Discharge teaching given, prescriptions faxed by field nurse case manager to pt's pharmacy. Pt denies c oncern. Ride home at bedside. Pt getting dressed now for discharge. onver arturo Transaction, Provider Unknown - 07/24/2018 10:12 AM PDT Case Management by Iram Saleh RN at 07/24/18 1012 Author: Iram Saleh RN Service: (none) Author Type: Registered Nurse Filed: 07/24/18 1014 Date of Service: 07/24/18 1012 Status: Signed Dietary Manager: Iram Saleh RN (Registered Nurse) Discharge planning: Met with pt, she indicated her friend is on her way to transport her from the hospital, no other needs identified. ADÁN signed and copy placed in chart. Pt's discharge prescriptions was faxed to [facility], Billie Braxton MD - 07/24/2018 9:09 AM PDTFormatting of this note might be different from th e original. Progress Notes by Billie Gupta MD at 07/24/18 0909 Author: Billie Gupta MD Service: Nephrology Author Type: Physician Filed: 07/24/1811 Date of Service: 07/24/18 09 Status: Signed Dietary Manager: Billie Gupta MD (Physician) [facility] Followup -Nephrology I saw Ms. Dara Louise today for follow-up. she is interviewed, examined and meds/ labs Have been reviewed. 23-year-old female with an 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 Anguiano) , chronic c ombined heart failure, severe pulmonary hypertension, cor pulmonale, moderate mitral valve r egurgitation, severe tricuspid regurgitation and other chronic comorbidities who was dischar ged on 05/2018 from [facility] with bilateral pleural effusions and ascites status post thoracente sis 1.5 L removed transudative and 4 L ascitic fluid removed who presents to [facility] ER f rom [place] ER for sepsis likely secondary to pneumonia. [...] by Minda Hudson RN at 07/24/18454 Author: Mnida Hudson RN Service: (none) Author Type: Registered Nurse Filed: 07/24/18524 Date of Service: 07/24/18454 Status: Signed Dietary Manager: Minda Hudson RN (Registered Nurse) Pt [...] (none) Author Type: Registered Nurse Filed: 07/23/18 1871 Date of Service: 07/23/181825 Status: Signed Dietary Manager: Saundra Hartley RN (Registered Nurse) Pt [...] Notes by Sotero Reinoso MD at 07/23/18 2317 Author: Sotero Reinoso MD Service: Hospitalist Author Type: Physician Filed: 07/23/184 Date of Service: 07/23/181335 Status: Signed Dietary Manager: Sotero Reinoso MD (Physician) [facility] Service: Hospitalist Progress Note Hospital Day: LOS: 4 days Briefly, 23-year-old female with an extensive past medical history of IgA vasculitis, end-s tage renal disease on hemodialysis Monday and Monday (guideman Dr. Anguiano) co mplicated with thrombosis of vascular dialysis stent on Plavix, hypertension, asthma, chroni c combined heart failure, severe pulmonary hypertension, cor pulmonale, moderate mitral valv e regurgitation, severe tricuspid regurgitation and other chronic comorbidities who was disc harged on 05/2018 from [facility] with bilateral pleural effusions and ascites status post thorace ntesis 1.5 L removed transudative and 4 L ascitic fluid removed who presents to [facility] E R from [place] ER for sepsis likely secondary to pulmonary [...] weeks after discharge and to follow-up with guideman and pet care worker within 1 to 2 weeks after discharge [...] in ESRD (end-stage renal disease) ([facility]) ASSESSMENT & PLAN 1. Sepsis: -Hemodynamically stable. -Noted at [facility] the patient was febrile with a [...] The patient does follow up with outpatient pet care worker (Dr. Mahmood) patient is tentative ly and [...] 07/23/18926 Date of Service: 07/23/18917 Status: Signed Dietary Manager: Billie Gupta MD (Physician) [facility] Followup -Nephrology I saw Ms. Dara Louise today for follow-up. she is interviewed, examined and meds/ labs Have been reviewed. 23-year-old female with an 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 Anguiano) , chronic c ombined heart failure, severe pulmonary hypertension, cor pulmonale, moderate mitral valve r egurgitation, severe tricuspid regurgitation and other chronic comorbidities who was dischar ged on 05/2018 from [facility] with bilateral pleural effusions and ascites status post thoracente sis 1.5 L removed transudative and 4 L ascitic fluid removed who presents to [facility] ER f [facility] ER for sepsis likely secondary [...] 07/23/18622 Date of Service: 07/23/18622 Status: Signed Dietary Manager: Shannon Martell RN (Registered Nurse) No [...] 07/22/181726 Date of Service: 07/22/181722 Status: Signed Dietary Manager: Sotero Reinoso MD (Physician) [facility] Service: Hospitalist Progress Note Hospital Day: LOS: 3 days 23-year-old female with an 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 Anguiano) complicated with thrombosis of vascular dialysis stent on Plavix, hypertension, asthma, chronic combine d heart failure, severe pulmonary hypertension, cor pulmonale, moderate mitral valve regurgi tation, severe tricuspid regurgitation and other chronic comorbidities who was discharged on 05/2018 from [facility] with bilateral pleural effusions and ascites status post thoracentesis 1.5 L removed transudative and 4 L ascitic fluid removed who presents to [facility] ER from [facility] ER for [...] in ESRD (end-stage renal disease) ([facility]) ASSESSMENT & PLAN 1. Sepsis: -Hemodynamically stable. -Noted at [place] the patient was febrile with a T-max [...] The patient does follow up with outpatient pet care worker (Dr. Mahmood) patient is tentative ly and [...] Date of Service: 07/22/18 1609 Status: Addendum Dietary Manager: Rafaela Patel RN (Registered Nurse) Related [...] Date of Service: 07/22/18 0934 Status: Addendum Dietary Manager: Billie Gupta MD (Physician) Related Notes: Original Note by KRISHNA Sahu (Advanced Registered Nurse Pract[facility]) filed at 07/22/18 1057 [facility] Followup -Nephrology I saw Ms. Dara Louise today for follow-up. she is interviewed, examined and meds/ labs Have been reviewed. 23-year-old female with an 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 Anguiano) complicated with thrombosis of vascular dialysis stent on Plavix, hypertension, asthma, chronic combine d heart failure, severe pulmonary hypertension, cor pulmonale, moderate mitral valve regurgi tation, severe tricuspid regurgitation and other chronic comorbidities who was discharged on 05/2018 from [facility] with bilateral pleural effusions and ascites status post thoracentesis 1.5 L removed transudative and 4 L ascitic fluid removed who presents to [facility] ER from [facility] ER for [...] 0656 Date of Service: 07/22/18653 Status: Signed Dietary Manager: Priti Priest RN (Registered Nurse) SBP 80-100's, Pt reports slight lightheadedness with pressures in 80's. Afebrile. HR SR 80' s. No other changes over noc. [facility] Chart chart complete onver arturo Transaction, Provider Unknown - 07/21/2018 7:42 PM PDT Nurse Progress Note by Francesca Bustos RN at 07/21/181941 Author: Francesca Bustos RN Service: (none) Author Type: Registered Nurse Filed: 07/21/181942 Date of Service: 07/21/181941 Status: Signed Dietary Manager: Francesca Bustos RN (Registered Nurse) No [...] Service: Hospitalist Author Type: Physician Filed: 07/22/18 7317 Date of Service: 07/21/18 1233 Status: Signed Dietary Manager: Sotero Reinoso MD (Physician) [facility] Service: Hospitalist Progress Note Hospital Day: LOS: 2 days 23-year-old female with an 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 Anguiano) complicated with thrombosis of vascular dialysis stent on Plavix, hypertension, asthma, chronic combine d heart failure, severe pulmonary hypertension, cor pulmonale, moderate mitral valve regurgi tation, severe tricuspid regurgitation and other chronic comorbidities who was discharged on 05/2018 from [facility] with bilateral pleural effusions and ascites status post thoracentesis 1.5 L removed transudative and 4 L ascitic fluid removed who presents to [facility] ER from [facility] ER for [...] Dilated cardiomyopathy (HCC) Acute hypoxemic respiratory failure ([facility]) Pleural effusion on right Chronic right-sided heart failure (HCC) Hypertension Pancytopenia (HCC) Chest pain Other ascites Troponin I above reference range Anemia in ESRD (end-stage renal disease) ([facility]) ASSESSMENT & PLAN 1. Sepsis: -Hemodynamically stable. -Noted at [facility] the patient was febrile with a [...] The patient does follow up with outpatient pet care worker (Dr. Mahmood) patient is tentative ly and referral to advanced heart failure center with consideration of [facility] basement. Thrombocytopenia: -Chronic. -Stable, will monitor. Severe tricuspid regurgitation/moderate mitral regurgitation: -Medical management. -Maintain euvolemia Disposition: inpatient Code Status: Full Code Sotero Reinoso MD 07/21/2018 Billie Bob MD - 07/21/2018 10:24 AM PDT Progress Notes by Billie Gupta MD at 07/21/18 1024 Author: Billie uGpta MD Service: Nephrology Author Type: Physician Filed: 07/21/18 1029 Date of Service: 07/21/18 1024 Status: Signed Dietary Manager: Billie Gupta MD (Physician) [facility] Followup -Nephrology I saw . Dara Louise [...] 07/21/18614 Date of Service: 07/21/18614 Status: Signed Dietary Manager: Gris Hawk RN (Registered Nurse) Medicated for pain x1, nausea x1. No other acute changes noted. End of shift review complet e. onver arturo Transaction, Provider Unknown - 07/20/2018 7:44 PM PDT Nurse Progress Note by Francesca Bustos RN at 07/20/181943 Author: Francesca Bustos RN Service: (none) Author Type: Registered Nurse Filed: 07/20/181945 Date of Service: 07/20/181943 Status: Signed Dietary Manager: Francesca Bustos RN (Registered Nurse) No [...] 07/20/181624 Date of Service: 07/20/181624 Status: Signed Dietary Manager: Prashanth Estevez RN (Registered Nurse) Infection [...] completed Mycoplasma pneumoniae Droplet (DI) Prashanth Estevez JD [facility] blemo Sotero parker MD - 07/20/2018 4:15 PM PDT Progress Notes by Sotero Reinoso MD at 07/20/181614 Author: Sotero Reinoso MD Service: Hospitalist Author Type: Physician Filed: 07/20/181625 Date of Service: 07/20/181614 Status: Signed Dietary Manager: Sotero Reinoso MD (Physician) [facility] Service: Hospitalist Progress Note Hospital Day: LOS: 1 day 23-year-old female with an 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 Anguiano) complicated with thrombosis of vascular dialysis stent on Plavix, hypertension, asthma, chronic combine d heart failure, severe pulmonary hypertension, cor pulmonale, moderate mitral valve regurgi tation, severe tricuspid regurgitation and other chronic comorbidities who was discharged on 05/2018 from [facility] with bilateral pleural effusions and ascites status post thoracentesis 1.5 L removed transudative and 4 L ascitic fluid removed who presents to [facility] ER from [place] [facility] for sepsis likely [...] in ESRD (end-stage renal disease) ([facility]) ASSESSMENT & PLAN 1. Sepsis: -Hemodynamically stable. -Noted at [place]' the patient was febrile with a T-max [...] The patient does follow up with outpatient pet care worker (Dr. Mahmood) patient is tentative ly and [...] Date of Service: 07/20/18 150 Status: Signed Dietary Manager: Stephanie Hirsch RN (Registered Nurse) 07/20/18 [...] Oriented Prior functional status independent Power of Self Storage Manager No Anticipated Discharge Plan Post Acute Care Needs None at this time Plan communicated to patient/family Yes Resources Financial concerns No Transportation issues No Patient/Family concerns No Prescription Plan Yes Name of Pharmacy [facility] Previous home health equipment [...] resources utilized / needed: Dialysis M/W/F @ [facility] Assistance in transportation: pov w/friends Identification of [...] Date of Service: 07/20/18 0850 Status: Signed Dietary Manager: KRISHNA Nice (Advanced Registered Nurse Practitioner) [facility] Service: Radiology Progress Note Patient evaluated for [...] 07/20/18655 Date of Service: 07/20/18654 Status: Signed Dietary Manager: Nereida Edwards RN (Registered Nurse) VS [...] 07/19/181925 Date of Service: 07/19/181925 Status: Signed Dietary Manager: Francesca Bustos RN (Registered Nurse) No [...] Notes by Antonio Pabon MD at 07/19/18 3526 Author: Antonio Pabon MD Service: Nephrology Author Type: Physician Filed: 07/19/18 0718 Date of Service: 07/19/181349 Status: Signed Dietary Manager: Antonio Pabon MD (Physician) [facility] Service: NEPHROLOGY Dialysis Note Dara Louise 23 y.o. [phone] [id number] female [facility] Day: LOS: 0 days 23-year-old female with [...] Surgeon: Rik Simon MD; Location: [facility] MAIN OR; Service: Vascula r; Laterality: Left; cephalic AV FISTULA REPAIR Left 03/07/2014 Procedure: AV FISTULA - GRAFT REPAIR/REVISION; Surgeon: Rik Simon MD; Location: [facility] IN OR; Service: Vascular; Laterality: Left; DECLOT GRAFT Left 03/07/2014 Procedure: GRAFT - DECLOT; Surgeon: Rik Simon MD; Location: [facility] MAIN OR; Service: Vas cular; Laterality: Left; DIALYSIS FISTULA CREATION N/A 04/08/2014 Procedure: DIALYSIS CATHETER - INSERTION; Surgeon: Rik Simon MD; Location: [facility] MAIN OR ; Service: Vascular; Laterality: N/A; tunneled catheter LAPAROSCOPIC PERITONEAL DIALYSIS CATHETER INSERTION x2 LAPAROSCOPIC PERITONEAL DIALYSIS CATHETER INSERTION Right 07/2013 current dialysis access MWF dialysis RENAL BIOPSY RENAL BIOPSY Left 2003 SUPERFICIALIZATION OF AV FISTULA Left 06/24/2014 Procedure: AV FISTULA - SUPERFICIALIZATION; Surgeon: Rik Simon MD; Location: [facility] MAIN OR; Service: Vascular; Laterality: [...] file Social History Narrative Lives in [facility], 2 wks ago fell at home [...] earlier and charting completed later Dictation software, [employer], used which may contain error for similar [...] Date of Service: 07/19/18 1020 Status: Signed Dietary Manager: Francesca Bustos RN (Registered Nurse) No [...] Date of Service: 07/19/18 0801 Status: Addendum Dietary Manager: Sotero Reinoso MD (Physician) Related Notes: Original Note by Sotero Reinoso MD (Physician) filed at 07/19/18 1424 [facility] Service: Hospitalist Progress Note Hospital Day: LOS: 0 days 23-year-old female with an 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 Anguiano) complicated with thrombosis of vascular dialysis stent on Plavix, hypertension, asthma, chronic combine d heart failure, severe pulmonary hypertension, cor pulmonale, moderate mitral valve regurgi tation, severe tricuspid regurgitation and other chronic comorbidities who was discharged on 05/2018 from [facility] with bilateral pleural effusions and ascites status post thoracentesis 1.5 L removed transudative and 4 L ascitic fluid removed who presents to [facility] ER from [facility] ER for [...] -Hemodynamically stable except for tachycardia. -Noted at [facility] the patient was febrile with a [...] The patient does follow up with outpatient pet care worker (Dr. Mahmood) patient is tentative ly and [...] 07/19/18129 Date of Service: 07/19/18129 Status: Signed Dietary Manager: Jae Gutierres RPH (Pharmacist) Renal Dosing [...] EXTERNAL | | | | performed at [facility];[address] | | LAB | | | | [address];[place] | | | | | | [address] | | | | + + + [...] | | performed at [facility];[address] | | | | | | [facility];[place], [place] | | | | | | [address] | | | | + + + [...] | | performed at [facility];[address] | | | | | | [address];[place], [place] | | | | | | [address] | | | | + + + [...] | | | | | [place] [address] | | | | + + + [...] | | | | performed at [facility], [address] | | | | | | [facility], | | | | | | [place] [address] | | | | + + + [...] | EXTERNAL LAB | | not a filbert grower validated sample type for this method. No reference | | | ranges have been established. Testing performed at [facility], [address] | | | [place] [address] FLUID TP SOURCE | | | THORACENTESIS Testing performed at [facility];[address] | | | [place] [address] | | + + + + +---------+ [...] EXTERNAL LAB | | is not a filbert grower validated sample type for this method. No | | | reference ranges have been established. Testing performed at [facility], | | | [address] [place] [address] | | + + + + +---------+ [...] EXTERNAL LAB | | Testing performed at [facility];[address] [facility];[place] [address] | | + + + + +---------+ [...] EXTERNAL | | | | performed at [facility];[address] | | LAB | | | | [address];[place], [place] | | | | | | [address] | | | | + + + [...] EXTERNAL | | | | performed at [facility];[address] | | LAB | | | | [address];[place], [place] | | | | | | [address] | | | | + + + [...] with arms on the | | | ydno-edk-wjt table. Ultrasound was utilized to tk an [...] | | | possibility of "sound alike" heatset winder operator errors, addition and/or | | | deletions [...] at the bedside with arms on the azik-zra-wls | | table. Ultrasound was utilized to [...] recognition system. The possibility of "sound alike" heatset winder operator errors, | | addition and/or deletions may [...] system. The possibility of "sound a like" heatset winder operator errors, addition and/or deletions may occur. If [...] | | | | | at [facility], [address] | | | | | | [employer], | | | | | | [place] [address] | | | | | |Testing performed at [facility], [address] [facility], [place] [address] | | | | | | | [...] | | | | performed at [facility], [address] | | | | | | [facility], | | | | | | [place] [address] | | | | + + + [...] EXTERNAL | | | | performed at [facility];[address] | mmol/L | LAB | | | | [address];[place], [place] | | | | | | [address] | | | | + + + [...] | | | Patient | performed at [facility];[address] | | LAB | | | | [address];[place], [place] | | | | | | [address] | | | | + + + [...] | | performed at [facility] | | | | | | [address];[place], [place] | | | | | | [address] | | | | + + + [...] | | | Estimate | performed at [facility];[address] | | LAB | | | | [address];[place] | | | | | | [address] | | | | + + + [...] | | performed at [facility];[address] | | | | | | [facility];[place], [place] | | | | | | [address] | | | | + + + [...] at | | | | | | [facility];[address] [place] [address] | | | | | | [facility];[place] [address] | | | | + + + [...] | | performed at [facility];[address] | | | | | | [facility];[place], [place] | | | | | | [id number] ON 07/19 | | | | | [...] at | | | | | | [facility];[address] [facility] | | | | | | [facility];[place] [address] | | | | + + + [...] | | | | | at [facility], [address] | | | | | | [facility], | | | | | | [place] [address] | | | | | |Testing performed at [facility], [address] [place] [address] | | | | | | | [...] | | | | performed at [facility], [address] | | LAB | | | | [address], | | | | | | [place] [address] | | | | + + + [...] | | | | performed at [facility], [address] | | LAB | | | | Opal Caputo, | | | | | | [place], [place] [address] | | | | + + + [...] | | | | performed at [facility], [address] | | | | | | [facility], | | | | | | [place] [address] | | | | + + + [...] NEGATIVE Testing | | | performed at [facility];[address] [place] [address];[place] [address] | | + + + + +---------+ [...] Methodology Testing performed at | | | [facility], [address] [place] [address] | | + + + + +---------+ [...] EXTERNAL | | | | performed at [facility];[address] | mmol/L | LAB | | | | [address];[place] | | | | | | [address] | | | | + + + [...] | | | | | | at [facility];[address] [place] [address] | | | | | | Blvd;[place] [address] | | | | + + + [...] at | | | | | | [facility];[address] [place] [address] | | | | | | [facility];[place] [address] | | | | + + + [...] | | | QUALITATIVE | performed at [facility] | | LAB | | | | [address];[place] | | | | | | [address] | | | | + + + [...]
--- OUTSIDE RECORDS SUMMARY | ~2019-07-14 | XMS | Encounter Summary ---
Demographics + + + | Address | [address] | | | [place] [address] | + + + | Home Phone [...] | | | | | [place] [address] | | + + + + + | Thania Mallory | ECON | [address] | | | | | [place] [address] | | + + + + + | Deidra Weldon | ECON | [address] | | | | | [place] | | | | | [address] | | + + + + + Care Team Providers + +------+ + | Care Critical Care Paramedic Name | Role | Phone | + [...] | | | [address] | [facility] | | | | | [place], | [place], [place] | | | | | [place] [address] | [address] | | | | | [phone] | | | +--------+ + + + [...] [facility] | | | | | | [address] | | | | | | [phone] | | | | | | | | +--------+ + + + + documented as of this encounter Visit Diagnoses Not on filedocumented in this encounter"
--- OUTSIDE RECORDS SUMMARY | ~2019-07-14 | XMS | Encounter Summary ---
Demographics + + + | Address | [address] | | | [place] [address] | + + + | Home Phone [...] | | | | | [place] [address] | | + + + + + | Thania Mallory | ECON | [address] | | | | | [place] [address] | | + + + + + | Deidra Weldon | ECON | [address] | | | | | [place] | | | | | [address] | | + + + + + Care Team Providers + +------+ + | Care Jeep Mechanic Name | Role | Phone | + +------+ + | Shahid Camargo MD | PCP | | + +------+ + Encounter Details +--------+ + + + + | Date | Type | Department | Care Team | Description | +--------+ + + + + | 12/19/ | Document-Sc | UNKNOWN DEPARTMENT | Unknown . | | | 2012 | anned | [address] [facility] | | | | | | [facility] | | | | | | [place], [place] | | | | | | [address] | | | +--------+ + + + [...] Denise | | | | | | [place], [place] | | | | | | [address] | | | | | | [phone] | | | | | | | | +--------+ + + + + documented as of this encounter Visit Diagnoses Not on filedocumented in this encounter"
--- OUTSIDE RECORDS SUMMARY | ~2019-07-14 | XMS | Encounter Summary ---
Demographics + + + | Address | [address] | | | [place] [address] | + + + | Home Phone [...] | | | | | [place] [address] | | + + + + + | Thania Mallory | ECON | [address] | | | | | [place] [address] | | + + + + + | Deidra Weldon | ECON | [address] | | | | | [place] | | | | | [address] | | + + + + + Care Team Providers + +------+ + | Care Ultrasonographer Name | Role | Phone | + [...] - | | | | [address] [place], | [place], [place] | psychosocial | | | | [place] [address] | [address] | readiness update) | | | | [phone] | | | +--------+ + + + [...] Denise | | | | | | [place], [place] | | | | | | [address] | | | | | | [phone] | | | | | | | | +--------+ + + + + documented as of this encounter Visit Diagnoses Not on filedocumented in this encounter"
--- OUTSIDE RECORDS SUMMARY | ~2019-07-14 | XMS | Encounter Summary ---
Demographics + + + | Address | [address] | | | [place] [address] | + + + | Home Phone [...] | | | | | [place] [address] | | + + + + + | Thania Mallory | ECON | [address] | | | | | [place] [address] | | + + + + + | Deidra Weldon | ECON | [address] | | | | | [place] | | | | | [address] | | + + + + + Care Team Providers + +------+ + | Care Area Development Consultant Name | Role | Phone | [...] | Update | | | | [address] [facility] | [facility] | | | | | [facility], | [place], [place] | | | | | [place] [address] | [address] | | | | | [phone] | | | +--------+ + + + [...] [facility] | | | | | | [address] | | | | | | [phone] | | | | | | | | +--------+ + + + + documented as of this encounter Visit Diagnoses Not on filedocumented in this encounter"
--- OUTSIDE RECORDS SUMMARY | ~2019-07-14 | XMS | Encounter Summary ---
Demographics + + + | Address | [address] | | | [place] [address] | + + + | Home Phone [...] Author | [facility] | | | and Josephana | + + + | Organization | [facility] [...] Providers + +------+ + | Care Manager Special Events Name | Role | Phone | + [...] + + | 01/23/ | Hospital | [facility] | Vivek Teran, | SOB (shortness of | | 2019 - | Encounter | [facility] | MD Brooks [address] | breath) (Primary | | | | CARE FLOOR [address] | [place] [address] | Dx); ESRD needing | | 01/26/ | | [address] | [phone] | dialysis ([facility]); | | 2019 | | [place], [place] | | Chronic pleural | | | | [address] | Omar Hatch MD [address] | effusion; | | | | [phone] | [address] | Noncompliance with | | | | | [place] [address] | renal dialysis | | | | | [phone] | ([facility]); Acute | | | | | | respiratory | | | | | Sotero Reinoso MD | distress; Anemia in | | | | | [address] | ESRD (end-stage | | | | | [place], [place] | renal disease) | | | | | [address] | ([facility]); At high risk | | | | | | for electrolyte | | | | | Usha Martínez MD | imbalance; ESRD on | | | | | [address] | hemodialysis ([facility]); | | | | | [place] [address] | Hyperphosphatemia; | | | | | [phone] | Noncompliance; | | | | | [...] note might be different from pierre coleman. [facility] Service: Hospitalist Discharge Summary Date of [...] CHEST AP PORTABLE (01/07/2019); CHEST TWO VIEWS 20732 (01/06/2019); XR CHEST AP PORTABLE (12/13/2018); FINDINGS: [...] CHEST AP PORTABLE (01/07/2019); CHEST TWO VIEWS 35160 (01/06/2019); FINDINGS: Mild cardiomegaly. No pneumothorax. Interstitial [...] Confirmed by MUSE READ ONLY, -COMPUTER ([id number]), manager editorial Daniela Luciano ([id number]) on 01/24/2019 5:16: 19 [...] ([facility]) 2014 Congestive heart failure (HCC) ESRD (end stage renal disease) (HCC) HSP (Henoch-Schonlein purpura) nephritis ([facility]) 1987 Hypertension Pericardial effusion without cardiac tamponade 11/07/2018 Past Surgical History: Procedure Laterality Date ABDOMEN SURGERY AV FISTULA REPAIR 02/24/2014 LEFT Radical Cephalic Fistula Creation; Laterality: Left; Surgeon: Blake Chavarria MD ; Location: [facility] MAIN OR AV FISTULA REPAIR Left 03/07/2014 Procedure: AV FISTULA - GRAFT REPAIR/REVISION; Surgeon: Rik Simon MD; Location: [facility] OR; Service: Vascular; Laterality: Left; biopsy of kidney age 10 DIALYSIS FISTULA CREATION 04/08/2014 Procedure: DIALYSIS CATHETER - INSERTION; Surgeon: Rik Simon MD; Location: [facility] ; Service: Vascular; Laterality: N/A; tunneled catheter.br hemodialysis catheter KIDNEY BIOPSY Left 2003 OTHER SURGICAL HISTORY LAPAROSCOPIC PERITONEAL DIALYSIS CATHETER INSERTION - x2 OTHER SURGICAL HISTORY Right 07/2013 LAPAROSCOPIC PERITONEAL DIALYSIS CATHETER INSERTION - current dialysis access MWF dialysis OTHER SURGICAL HISTORY Left 06/24/2014 SUPERFICIALIZATION OF AV FISTULA - Procedure: AV FISTULA - SUPERFICIALIZATION; Surgeon: Emanuel Simon MD; Location: [facility] OR; Service: Vascular; Laterality: Left; OTHER SURGICAL HISTORY Left 04/08/2014 AV FISTULA PLACEMENT - Procedure: AV FISTULA; Surgeon: Rik Simon MD; Location: [facility]; Service: Vascular; Laterality: Left; cephalic OTHER SURGICAL HISTORY Left 03/07/2014 DECLOT GRAFT - Procedure: GRAFT - DECLOT; Surgeon: Rik Simon MD; Location: [facility] OR ; Service: Vascular; Laterality: Left; [...] Follow up: Jonathan C Gavin, [place] [address] [place] [address] Schedule an appointment as soon as possible [...] Chronic pleural effusion [J90] Recommendations: No acute SOIL CONSERVATIONIST indication Management of the right pleural effusion [...] PRN hydralazine. Pt also co [facility] for which she i s [...] R?MRN: | | | | | | [id number] | | | [id number] | | | riteri | | | [...] | | | St. | | | [place] | | | y | | | [...] | | | St. | | | [place] | | | y | | | [...] | | | St. | | | [place] | | | y | | | [...] | | | St | | | [place] | | | y | | | [...] St | | | | | | [place] | | | y | | | [...] | | | St. | | | [place] | | | y | | | [...] | | | St. | | | [place] | | | y H. | | [...] | | | St. | | | [place] | | | y H. | | [...] | | | St. | | | [place] | | | y H. | | [...] | | | St. | | | [place] | | | y H. | | [...] | | | St. | | | [place] | | | y H. | | [...] | | | St. | | | [place] | | | y H. | | [...] | | | MD | | | Psych Therapist | | | al | | | [...] | | | [id number] | | | [id number] | | | eb | | | [...] | | | | | [place] [address] | | | | + + + + + + + + | Specimen | + + | | + + + + + + + | Performing | Address | City/State/Zipcode | Phone Number | | Organization | | | | + + + + + | [facility] | [address] | [place] [address] | [phone] | + + + + + CBC [...] MPV | 10.6Comment: Testing | fl | MISHEL | | | | performed at [facility], [address] | | LABORATORY | | | | [address], | | | | | | [place] [address] | | | | + + + + + + + + | Specimen | + + | | + + + + + + + | Performing | Address | City/State/Zipcode | Phone Number | | Organization | | | | + + + + + | [facility] | [address] | [place] [address] | [phone] | + + + + + Renal [...] | | | | performed at [facility], [address] | | | | | | [facility], | | | | | | [place] [address] | | | | + + + + + + + + | Specimen | + + | Blood | + + + + + + + | Performing | Address | City/State/Zipcode | Phone Number | | Organization | | | | + + + + + | [facility] | [address] | [place] [address] | [phone] | + + + + + HEMODIALYSIS [...] [R06.02] | | | ESRD needing dialysis ([facility]) [N18.6, Z99.2] Chronic pleural effusion | | [...] MISHEL | | | | performed at [facility], [address] | | LABORATORY | | | | [address], | | | | | | [place] [address] | | | | + + + + + + + + | Specimen | + + | | + + + + + + + | Performing | Address | City/State/Zipcode | Phone Number | | Organization | | | | + + + + + | [facility] | [address] | [place] [address] | [phone] | + + + + + CBC [...] [facility] | | | | performed at [facility], [address] | | LABORATORY | | | | [address], | | | | | | [place] [address] | | | | + + + + + + + + | Specimen | + + | | + + + + + + + | Performing | Address | City/State/Zipcode | Phone Number | | Organization | | | | + + + + + | [facility] | [address] | [place] [address] | [phone] | + + + + + Renal [...] (L)Comment: GFR <60: | >60 | [facility] | | | GFR | [...] | | | | performed at [facility], [address] | | | | | | [facility], | | | | | | [place] [address] | | | | + + + + + + + + | Specimen | + + | Blood | + + + + + + + | Performing | Address | City/State/Zipcode | Phone Number | | Organization | | | | + + + + + | [facility] | [address] | [place] [address] | [phone] | + + + + + Iron [...] | | | Saturation | performed at L, [address] | | LABORATORY | | | | [address], | | | | | | [place] [address] | | | | + + + + + + + + | Specimen | + + | Blood | + + + + + + + | Performing | Address | City/State/Zipcode | Phone Number | | Organization | | | | + + + + + | [facility] | [address] | [place] [address] | [phone] | + + + + + Ferritin (01/24/2019 5:53 AM PST) + + + + + + | Component | Value | Ref Range | Performed | Pathologist | | | | | At | Signature | + + + + + + | Ferritin | 805 (H)Comment: Testing | 6 - 170 ng/mL | [facility] | | | | performed at [facility], [address] | | LABORATORY | | | | [address], | | | | | | [place] [address] | | | | + + + + + + + + | Specimen | + + | Blood | + + + + + + + | Performing | Address | City/State/Zipcode | Phone Number | | Organization | | | | + + + + + | [facility] | [address] | [place] [address] | [phone] | + + + + + Creatine Kinase, Isoenzymes (01/24/2019 5:53 AM PST) + + + + + + | Component | Value | Ref Range | Performed | Pathologist | | | | | At | Signature | + + + + + + | CK-MM | 100Comment: Testing | 97 - 100 % | [facility] | | | | performed by [employer], | | LABORATORY | | | | [address], | | | | | | [place] [address] | | | | + + + + + + | CK-MB | 0Comment: Testing | 0 - 3 % | [facility] | | | | performed by [employer], | | LABORATORY | | | | [address], | | | | | | [place] [address] | | | | + + + + + + | CK-BB | 0Comment: Testing | 0 % | [facility] | | | | performed by [employer], | | LABORATORY | | | | [address], | | | | | | [place] [address] | | | | + + + + + + | CK, Total | 156Comment: Testing | 24 - 173 U/L | [facility] | | | | performed at [employer], | | LABORATORY | | | | [address], | | | | | | [place] [address] | | | | + + + + + + | CK-MACRO | 0 | Not Observed % | [facility] | | | TYPE 1 | | | LABORATORY | | + + + + + + | CK-MACRO | 0Comment: Testing | Not Observed % | [facility] | | | TYPE II | performed by [employer], | | LABORATORY | | | | [address], | | | | | | [facility] [address] | | | | + + + + + + + + | Specimen | + + | Blood | + + + + + + + | Performing | Address | City/State/Zipcode | Phone Number | | Organization | | | | + + + + + | [facility] | [address] | [place] [address] | [phone] | + + + + + Phosphorus (01/24/2019 5:53 AM PST) + + + + + + | Component | Value | Ref Range | Performed | Pathologist | | | | | At | Signature | + + + + + + | Phosphorus | 8.6 (H)Comment: Testing | 2.3 - 4.8 mg/dL | [facility] | | | | performed at [facility], [address] | | LABORATORY | | | | [address], | | | | | | [place] [address] | | | | + + + + + + + + | Specimen | + + | Blood | + + + + + + + | Performing | Address | City/State/Zipcode | Phone Number | | Organization | | | | + + + + + | [facility] | [address] | [place] [address] | [phone] | + + + + + Magnesium (01/24/2019 5:53 AM PST) + + + + + + | Component | Value | Ref Range | Performed | Pathologist | | | | | At | Signature | + + + + + + | Magnesium | 2.6 (H)Comment: Testing | 1.7 - 2.4 mg/dL | [facility] | | | | performed at [facility], [address] | | LABORATORY | | | | [address], | | | | | | [place] [address] | | | | + + + + + + + + | Specimen | + + | Blood | + + + + + + + | Performing | Address | City/State/Zipcode | Phone Number | | Organization | | | | + + + + + | [facility] | [address] | [place] [address] | [phone] | + + + + + Basic [...] (L)Comment: GFR <60: | >60 | [facility] | | | GFR | [...] | | | | | | MDRD IDMO traceable | | | | | | equation.Testing | | | | | | performed at [facility], [address] | | | | | | [facility], | | | | | | [place] [address] | | | | + + + + + + + + | Specimen | + + | Blood | + + + + + + + | Performing | Address | City/State/Zipcode | Phone Number | | Organization | | | | + + + + + | [facility] | [address] | [place] [address] | [phone] | + + + + + CBC [...] | | | | | | at [facility], [address] | | | | | | [address], | | | | | | [place] [address] | | | | | |Testing performed at [facility], [address] [place] [address] | | | | | | | | | | + + +---- + + + + + | Specimen | + + | Blood | + + + + + + + | Performing | Address | City/State/Zipcode | Phone Number | | Organization | | | | + + + + + | [facility] | [address] | [place] [address] | [phone] | + + + + + Troponin I (01/24/2019 5:53 AM PST) + + + + + + | Component | Value | Ref Range | Performed | Pathologist | | | | | At | Signature | + + + + + + | Troponin I | 0.228 (H)Comment: 0.04 | 0.00 - 0.04 | [facility] | | | | ng/mL [...] at | | | | | | [facility];[address] [facility] | | | | | | [facility];[place] [address] | | | | + + + + + + + + | Specimen | + + | Blood | + + + + + + + | Performing | Address | City/State/Zipcode | Phone Number | | Organization | | | | + + + + + | [facility] | [address] | [place] [address] | [phone] | + + + + + XR [...] CHEST AP PORTABLE (01/07/2019); CHEST TWO VIEWS 34359 (01/06/2019); | | | FINDINGS: Mild cardiomegaly. [...] PORTABLE (01/07/2019); CHEST | | TWO VIEWS 26480 (01/06/2019); | | | | FINDINGS: | [...] 100 pg/mL | [facility] | | | | Testing performed at | | LABORATORY | | | | [facility];[address] | | | | | | [address];[place] [address] | | | | + + + + + + + + | Specimen | + + | Blood | + + + + + + + | Performing | Address | City/State/Zipcode | Phone Number | | Organization | | | | + + + + + | [facility] | [address] | [place] [address] | [phone] | + + + + + Phosphorus (01/23/2019 11:26 PM PST) + + + + + + | Component | Value | Ref Range | Performed | Pathologist | | | | | At | Signature | + + + + + + | Phosphorus | 7.9 (H)Comment: Testing | 2.3 - 4.8 mg/dL | [facility] | | | | performed at [facility];[address] | | LABORATORY | | | | [address];[place] | | | | | | [address] | | | | + + + + + + + + | Specimen | + + | Blood | + + + + + + + | Performing | Address | City/State/Zipcode | Phone Number | | Organization | | | | + + + + + | [facility] | [address] | [place] [address] | [phone] | + + + + + Troponin I (01/23/2019 11:26 PM PST) + + + + + + | Component | Value | Ref Range | Performed | Pathologist | | | | | At | Signature | + + + + + + | Troponin I | 0.169 (H)Comment: 0.04 | 0.00 - 0.04 | [facility] | | | | ng/mL [...] at | | | | | | [facility];[address] [facility] | | | | | | [facility];[place] [address] | | | | + + + + + + + + | Specimen | + + | Blood | + + + + + + + | Performing | Address | City/State/Zipcode | Phone Number | | Organization | | | | + + + + + | [facility] | [address] | [place] [address] | [phone] | + + + + + Comprehensive [...] | | | | | | MDRD IDMO traceable | | | | | | equation.Testing | | | | | | performed at [facility];[address] | | | | | | [facility];[place], [place] | | | | | | [address] | | | | + + + + + + + + | Specimen | + + | Blood | + + + + + + + | Performing | Address | City/State/Zipcode | Phone Number | | Organization | | | | + + + + + | [facility] | [address] | [place] [address] | [phone] | + + + + + CBC [...] | | LABORATORY | | | | [facility];[address] [place] [address] | | | | | | Blvd;[place] [address] | | | | + + + + + + + + | Specimen | + + | Blood | + + + + + + + | Performing | Address | City/State/Zipcode | Phone Number | | Organization | | | | + + + + + | [facility] | [address] | [place] [address] | [phone] | + + + + + XR [...] (01/07/2019); CHEST TWO | | | VIEWS 14021 (01/06/2019); XR CHEST AP PORTABLE (12/13/2018); | [...] CHEST AP PORTABLE (01/07/2019); CHEST TWO VIEWS 12149 (01/06/2019); XR | | CHEST AP PORTABLE [...] | | | | | ONLY, -COMPUTER (869), | | | | | | manager editorial LucianoDaniela | | | | | | (18) [...] correct | | | patient, procedure, equipment, gwot ia/ilo intelligence support and site/side marked as | | [...] space: 6th Puncture method: | | | [id number]-[id number] catheter Number of attempts: 1 Drainage amount: [...] + + | Noncompliance with renal dialysis ([facility]) Noncompliance with renal dialysis | + + [...] | | | | | dose on [facility] 01/24/19 at 0900 | | AM [...] | | | | | dose on [facility] 01/24/19 at 0900 | | AM [...] 19 4:24 | | | | | [facility] 01/24/19 at 0310, For 1 dose | [...] | | | | | | Starting Little 01/24/19 at 0304 | | | | [...] | | Arm | | Intravenous, ONCE, [facility] 01/24/19 | | AM PST | | | | | at 0125, For 1 dose | | | | | | + +-------+ +--------+---+--------+ +---+---+ | | | +---+---+ + +-------+ +--------+---+---+ | HYDROmorphone (DILAUDID) | Given | 01/25/20 | 0.5 mg | | | | injection 0.5 mg 0.5 mg, | | 19 1:13 | | | | | Intravenous, ONCE, [facility] 01/24/19 | | PM PST | | | | | at 1215, For 1 dose | | | | | | + +-------+ +--------+---+---+ +---+---+ | | | +---+---+ + +-------+ +------+---+---+ | HYDROmorphone (DILAUDID) | Given | 01/25/20 | 1 mg | | | | injection 1 mg 1 mg, | | 19 4:20 | | | | | Intravenous, ONCE, [facility] 01/24/19 | | AM PST | [...] | | | DAILY, First dose on Little 01/24/19 | | | at 1430, Apply [...] PST | | | | | Starting [facility] 01/24/19 at 0355, | | | [...] nonresponsive to | | | Tylenol, Starting [facility] 01/24/19 at | | | 1409 [...] AM PST | | | | | [facility] 01/24/19 at 0630, Do not cut [...] | | | | | | | [facility] 01/24/19 at 0800, Do not cut [...] Oral, | | | WITH SNACKS, Starting [facility] | | | 01/24/19 at 0411, Do not cut or | | | crush tablets., | | + +---+ | | | + +---+ | sodium chloride 0.9% (NS) bolus | | | 100 mL 100 mL, Intravenous, | | | Administer over 15 Minutes, | | | DIALYSIS - PRN, Hypotension, | | | Starting [facility] 01/24/19 at 0833, | | | [...] | | | | | dose on [facility] 01/24/19 at 0900, | | | [...]
--- OUTSIDE RECORDS SUMMARY | ~2019-07-14 | XMS | Encounter Summary ---
Demographics + + + | Address | [address] | | | [place] [address] | + + + | Home Phone [...] Providers + +------+ + | Care Parts Casting Machine Operator Name | Role | Phone [...] NEPHROLOGY [address] | M, DO [address] | | | | | [address] | [place] | | | | | [place], [place] | [place], [place] | | | | | [address] | [address] | | | | | [phone] | | | +--------+ + + + [...] [facility], Sudhakar Joy MD at [facility], Doyle Diaz MD (fx: [phone]) on 08/31/15.Electronically signed by Marilyn Palumbo at [...] with an AVF venous stenosis, and had PRISON GUARD with an Alysia Castillo last week. Apparently [...] uated for a possible renal allograft at [facility].honestly, given her recent suboptimal compliance with fluid gains, hyperphosphatemia, and missed treatments I think anitha quarles would be at high risk for graft loss from noncompliance? Will attempt to get in touch wit h Dr. Joy, Pediatric Nephrology. 4. Will recheck her in one week. I appreciate Dr. iDaz's help with her recent fistulogram . CC: [place] Fina Joy M.D., Pediatric Nephrology, [facility] Doyle Diaz M.D., IR, [facility] documented in thi s encounter Plan of Treatment Not on filedocumented as of this encounter Visit Diagnoses + + | Diagnosis | + + | ESRD (end stage renal disease) (HCC) - Primary End stage renal disease | + + documented in this encounter"
--- OUTSIDE RECORDS SUMMARY | ~2019-07-14 | XMS | Encounter Summary ---
Demographics + + + | Address | [address] | | | [place] [address] | + + + | Home Phone [...] | [facility] | | | and [place] | + + + | Organization | [facility] | | [...] Team Providers + +------+ + | Care Hydrological Technical Officer Name | Role | Phone | + +------+ + PCP | Unavailable | + +------+ + Encounter Details +--------+ + + + + | Date | Type | Department | Care Team | Description | +--------+ + + + + | 03/07/ | Hospital | [facility] | Rik Simon MD | 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 She is still using a right subclavian [...] | | Provider folic acid-vitamin b complex-vitamin [id number] | | | (DIALYVITE) 3 MG TABS [...] Negative for chest pain, | | | sengydpuh-zd-xybuis, or cough GI: Negative for abdominal pain, [...] Date/Time Complete Metabolic | | | Panel [[id number]] (Abnormal) Collected: 03/07/14 1625 Order | | [...] LT 20 YEARS. | | | PTT [[id number]] Collected: 03/07/141624 Order Status: | | | Completed Updated: 03/07/14 170 Specimen Information: | | | Blood APTT 29 23 - 32 seconds CBC w Auto Diff [[id number]] | | | (Abnormal) Collected: 03/07/141624 Order [...] Rik Simon MD In 2 weeks [address] [facility] [address] | | | [phone] Discharge Medications: Discharge Medication | | | [...] | LAB | | | | [address];[place] | | | | | | [address] | | | | + + + [...] [place] | | | | | | [address] | | | | + + + + + + | Red Blood | 3.70Comment: Testing | 3.70 - 5.10 | EXTERNAL | | | Cells | performed at [facility];888 | M/uL | LAB | | | Counted | [address];[place] | | | | | | [address] | | | | + + + + + + | Hemoglobin | 12.9Comment: Testing | 11.3 - 15.5 | EXTERNAL | | | | performed at [facility];888 | g/dL | LAB | | | | [address];[place] | | | | | | [address] | | | | + + + + + + | Hematocrit, | 38.9Comment: Testing | 34.0 - 46.0 % | EXTERNAL | | | POC | performed at [facility];888 | | LAB | | | | [address];[place] | | | | | | [address] | | | | + + + + + + | MCV | 105.2 (H)Comment: | 80.0 - 100.0 fl | EXTERNAL | | | | Testing performed at | | LAB | | | | [facility];[address] | | | | | | [address];[place] [address] | | | | + + + + + + | MCH | 35.0 (H)Comment: Testing | 27.0 - 34.0 pg | EXTERNAL | | | | performed at [facility];888 | | LAB | | | | [address];[place] | | | | | | [address] | | | | + + + + + + | MCHC | 33.3Comment: Testing | 32.0 - 35.5 | EXTERNAL | | | | performed at [facility];888 | g/dL | LAB | | | | [address];[place] | | | | | | [address] | | | | + + + + + + | RDW-CV | 51.6Comment: Testing | 37 - 53 fl | EXTERNAL | | | | performed at [facility];888 | | LAB | | | | [address];[place] | | | | | | [address] | | | | + + + + + + | Platelet | 175Comment: Testing | 150 - 400 K/uL | EXTERNAL | | | Count | performed at [facility];888 | | LAB | | | Plasma | [address];[place] | | | | | | [address] | | | | + + + + + + | MPV | 8.9Comment: Testing | fl | EXTERNAL | | | | performed at [facility];888 | | LAB | | | | [address];[place] | | | | | | [address] | | | | + + + + + + | Differentia | AUTOMATEDComment: | | EXTERNAL | | | l Type | Testing performed at | | LAB | | | | [facility];[address] | | | | | | [address];[place] [address] | | | | + + + + + + | % Segmented | 71.7Comment: Testing | % | EXTERNAL | | | | performed at [facility];888 | | LAB | | | Neutrophils | [address];[place] | | | | | | [address] | | | | + + + + + + | % | 19.5Comment: Testing | % | EXTERNAL | | | Lymphocytes | performed at [facility];888 | | LAB | | | | [address];[place] | | | | | | [address] | | | | + + + + + + | % Monocytes | 6.7Comment: Testing | % | EXTERNAL | | | | performed at [facility];888 | | LAB | | | | [address];[place] | | | | | | [address] | | | | + + + + + + | % | 1.6Comment: Testing | % | EXTERNAL | | | Eosinophils | performed at [facility];888 | | LAB | | | | [address];[place] | | | | | | [address] | | | | + + + + + + | % Basophils | 0.5Comment: Testing | % | EXTERNAL | | | | performed at [facility];[address] | | LAB | | | | [address];[place] | | | | | | [address] | | | | + + + + + + | Absolute | 5.6Comment: Testing | 1.9 - 7.4 K/uL | EXTERNAL | | | Segmented | performed at [facility];888 | | LAB | | | Neutrophils | [address];[place] | | | | | | [address] | | | | + + + + + + | Absolute | 1.5Comment: Testing | 1.0 - 3.9 K/uL | EXTERNAL | | | Lymphocytes | performed at [facility];888 | | LAB | | | | [address];[place] | | | | | | [address] | | | | + + + + + + | Absolute | 0.5Comment: Testing | 0 - 0.8 K/uL | EXTERNAL | | | Monocytes | performed at [facility];888 | | LAB | | | | [address];[place] | | | | | | [address] | | | | + + + + + + | Absolute | 0.1Comment: Testing | 0 - 0.5 K/uL | EXTERNAL | | | Eosinophils | performed at [facility];888 | | LAB | | | | [address];[place] | | | | | | [address] | | | | + + + + + + | Absolute | 0.0Comment: Testing | 0 - 0.1 K/uL | EXTERNAL | | | Basophils | performed at [facility];[address] | | LAB | | | | [address];[place] | | | | | | [address] | | | | + + + [...] at [facility];888 | mmol/L | LAB | | | | [address];[place] | | | | | | [address] | | | | + + + + + + | K | 3.9Comment: Testing | 3.5 - 4.9 | EXTERNAL | | | | performed at [facility];888 | mmol/L | LAB | | | | [address];[place] | | | | | | [address] | | | | + + + + + + | Cl | 103Comment: Testing | 99 - 109 mmol/L | EXTERNAL | | | | performed at [facility];888 | | LAB | | | | [address];[place] | | | | | | [address] | | | | + + + + + + | CO2 | 26Comment: Testing | 23 - 32 mmol/L | EXTERNAL | | | | performed at [facility];[address] | | LAB | | | | [address];[place] | | | | | | [address] | | | | + + + + + + | Anion Gap | 12Comment: Testing | 5 - 20 mmol/L | EXTERNAL | | | | performed at [facility];[address] | | LAB | | | | [address];[place] | | | | | | [address] | | | | + + + + + + | Glucose, | 78Comment: Testing | 65 - 99 mg/dL | EXTERNAL | | | Fasting | performed at [facility];[address] | | LAB | | | | [address];[place] | | | | | | [address] | | | | + + + + + + | BUN | 12Comment: Testing | 8 - 25 mg/dL | EXTERNAL | | | | performed at [facility];888 | | LAB | | | | [address];[place] | | | | | | [address] | | | | + + + + + + | Creatinine | 3.51 (H)Comment: Testing | 0.50 - 1.00 | EXTERNAL | | | | performed at [facility];888 | mg/dL | LAB | | | | [address];[place] | | | | | | [address] | | | | + + + + + + | BUN/Creatin | 4Comment: Testing | | EXTERNAL | | | ine Ratio | performed at [facility];[address] | | LAB | | | | [address];[place] | | | | | | [address] | | | | + + + + + + | Calcium | 9.6Comment: Testing | 8.5 - 10.2 | EXTERNAL | | | | performed at [facility];888 | mg/dL | LAB | | | | [address];[place] | | | | | | [address] | | | | + + + + + + | Protein, | 8.1Comment: Testing | 6.3 - 8.2 g/dL | EXTERNAL | | | Total | performed at [facility];[address] | | LAB | | | | [address];[place] | | | | | | [address] | | | | + + + + + + | Albumin | 3.7Comment: Testing | 3.6 - 5.0 g/dL | EXTERNAL | | | | performed at [facility];[address] | | LAB | | | | [address];[place] | | | | | | [address] | | | | + + + + + + | Globulin | 4.3Comment: Testing | 1.3 - 4.9 g/dL | EXTERNAL | | | | performed at [facility];[address] | | LAB | | | | [address];[place] | | | | | | [address] | | | | + + + + + + | A/G Ratio | 0.9 (L)Comment: Testing | 1.0 - 2.4 | EXTERNAL | | | | performed at [facility];[address] | | LAB | | | | [address];[place] | | | | | | [address] | | | | + + + + + + | Bilirubin | 0.4Comment: Testing | 0.1 - 1.5 mg/dL | EXTERNAL | | | Total | performed at [facility];[address] | | LAB | | | | [address];[place] | | | | | | [address] | | | | + + + + + + | ALP, | 121 (H)Comment: Testing | 35 - 115 U/L | EXTERNAL | | | External | performed at [facility];[address] | | LAB | | | | [address];[place] | | | | | | [address] | | | | + + + + + + | AST | 20Comment: Testing | 10 - 45 U/L | EXTERNAL | | | | performed at [facility];[address] | | LAB | | | | [address];[place] | | | | | | [address] | | | | + + + + + + | ALT | 38Comment: Testing | 10 - 65 U/L | EXTERNAL | | | | performed at [facility];[address] | | LAB | | | | [address];[place] | | | | | | [address] | | | | + + + [...] [place] | | | | | | [address] | | | | + + + [...]
--- OUTSIDE RECORDS SUMMARY | ~2019-07-14 | XMS | Encounter Summary ---
Demographics + + + | Address | [address] | | | [place] [address] | + + + | Home Phone [...] + | Author | [facility] | | | and [place] | + + + | Organization | [facility] | [...] Providers + +------+ + | Care Security Flex Officer Name | Role | Phone | [...] NEPHROLOGY [address] | M, DO [address] | | | | | [address] | [place] | | | | | [place], [place] | [place], [place] | | | | | [address] | [address] | | | | | [phone] | | | +--------+ + + + [...]
--- OUTSIDE RECORDS SUMMARY | ~2019-07-14 | XMS | Encounter Summary ---
Demographics + + + | Address | [address] | | | [place] [address] | + + + | Home Phone [...] | Author | [facility] | | | and [place] | + + + | Organization | [facility] | [...] Team Providers + +------+ + | Care Charger Name | Role | Phone | + [...] | | [address] | [place], [address] | | | | | [place], [place] | [place], [place] | | | | | [address] | [address] | | | | | [phone] | | | +--------+--------+ + + + [...]
--- OUTSIDE RECORDS SUMMARY | ~2019-07-14 | XMS | Encounter Summary ---
Demographics + + + | Address | [address] | | | [place] [address] | + + + | Home Phone [...] | | | | | [place] [address] | | + + + + + | Thania Mallory | ECON | [address] | | | | | [place] [address] | | + + + + + | Deidra Weldon | ECON | [address] | | | | | [place] | | | | | [address] | | + + + + + Care Team Providers + +------+ + | Care Stove Mounter Name | Role | Phone | + [...] | Nephrology at | MD Emanuel [address] [facility] | | | | | [place] | [facility] | | | | | [facility] | [place], [place] | | | | | [address] | [address] | | | | | [place] | [phone] | | | | | [facility], | | | | | | [address] [place] [address] | | | | | | [place], [place] | | | | | | [address] | | | | | | [phone] | | | +--------+--------+ + + + [...] Denise | | | | | | [place], [place] | | | | | | [address] | | | | | | [phone] | | | | | | | | +--------+ + + + + documented as of this encounter Visit Diagnoses Not on filedocumented in this encounter"
--- OUTSIDE RECORDS SUMMARY | ~2019-07-14 | XMS | Encounter Summary ---
Demographics + + + | Address | [address] | | | [place] [address] | + + + | Home Phone [...] | | | | | [place] [address] | | + + + + + | Thania Mallory | ECON | [address] | | | | | [place] [address] | | + + + + + | Deidra Weldon | ECON | [address] | | | | | [place] | | | | | [address] | | + + + + + Care Team Providers + +------+ + | Care Candy Attendant Name | Role | Phone | [...] | | | | | [address] [place], | [place], [place] | | | | | [place] [address] | [address] | | | | | [phone] | | | +--------+ + + + [...] Denise | | | | | | [place], [place] | | | | | | [address] | | | | | | [phone] | | | | | | | | +--------+ + + + + documented as of this encounter Visit Diagnoses Not on filedocumented in this encounter"
--- OUTSIDE RECORDS SUMMARY | ~2019-07-14 | XMS | Encounter Summary ---
Demographics + + + | Address | [address] | | | [place] [address] | + + + | Home Phone [...] | | | | | [place] [address] | | + + + + + | Thania Mallory | ECON | [address] | | | | | [place] [address] | | + + + + + | Deidra Weldon | ECON | [address] | | | | | [place] | | | | | [address] | | + + + + + Care Team Providers + +------+ + | Care Ehs Engineer Name | Role | Phone | [...] | | [address] | [facility] | | | | | [facility], | [place], [place] | | | | | [place] [address] | [address] | | | | | [phone] | | | +--------+ + + + [...] Denise | | | | | | [place], [place] | | | | | | [address] | | | | | | [phone] | | | | | | | | +--------+ + + + + documented as of this encounter Visit Diagnoses Not on filedocumented in this encounter"
--- OUTSIDE RECORDS SUMMARY | ~2019-07-14 | XMS | Encounter Summary ---
Demographics + + + | Address | [address] | | | [place] [address] | + + + | Home Phone [...] | | | | | [place] [address] | | + + + + + | Thania Mallory | ECON | [address] | | | | | [place] [address] | | + + + + + | Deidra Weldon | ECON | [address] | | | | | [place] | | | | | [address] | | + + + + + Care Team Providers + +------+ + | Care Grinder Set Up Operator Surface Name | Role | Phone | + [...] lab/Provider | | | | [address] [place], | [place], [place] | updated) | | | | [place] [address] | [address] | | | | | [phone] | [phone] | | | | | | | [...] Denise | | | | | | [place], [place] | | | | | | [address] | | | | | | [phone] | | | | | | | | +--------+ + + + + documented as of this encounter Visit Diagnoses Not on filedocumented in this encounter"
--- OUTSIDE RECORDS SUMMARY | ~2019-07-14 | XMS | Encounter Summary ---
Demographics + + + | Address | [address] | | | [place] [address] | + + + | Home Phone [...] + + | Author | [facility] | | | and [place] | + + + | Organization | [facility] [...] Team Providers + +------+ + | Care Bleach Boiler Puller Name | Role | Phone | [...] [address] | | | | | ([facility]) | [address] [place] | [place], | | | | | | [place], [place] | [place] [address] | | | | | | [address] | Phone: | | | | | | Phone: | [phone] | | | | | | [phone] | Fax: | | | | | | Fax: | [phone] | | | | | | [phone] | | +--------+ + + + + + Encounter Details +--------+ + + + + | Date | Type | Department | Care Team | Description | +--------+ + + + + | 02/03/ | Orders Only | [facility] | Jorje Camp | ESRD (end stage | | 2013 | | NEPHROLOGY [address] | M, DO | renal disease) ([facility]) | | | | [address] | [place], [address] | (Primary Dx) | | | | [place], [place] | [place], [place] | | | | | [address] | [address] | | | | | [phone] | | | +--------+ + + + [...]
--- OUTSIDE RECORDS SUMMARY | ~2019-07-14 | XMS | Encounter Summary ---
Demographics + + + | Address | [address] | | | [place] [address] | + + + | Home Phone [...] | Author | [facility] | | | and [place] | + + + | Organization | [facility] [...] Providers + +------+ + | Care Research Laboratory Manager Name | Role | Phone | [...] | NEPHROLOGY [address] | [address] | | | | | [address] | [address] [place] | | | | | [place], [place] | [place] [address] | | | | | [address] | [phone] | | | | | [phone] | | | +--------+--------+ + + + [...]
--- OUTSIDE RECORDS SUMMARY | ~2019-07-14 | XMS | Encounter Summary ---
Demographics + + + | Address | [address] | | | [place] [address] | + + + | Home Phone [...] + | Author | [facility] | | | and [place] | + + + | Organization | [facility] | [...] Providers + +------+ + | Care Nuclear Equipment Test Engineer Name | Role | Phone [...] + + | 01/22/ | Refill | [facility] | Daniela Alejandre | Medication Refill | | 2018 | | CARDIOLOGY GERALD Castellanos Clinical Consultant | | | | | [address] | | | | | | [place] | | | | | | [address] | | | | | | [phone] | | | +--------+--------+ + + + [...]
--- OUTSIDE RECORDS SUMMARY | ~2019-07-14 | XMS | Encounter Summary ---
Demographics + + + | Address | [address] | | | [place] [address] | + + + | Home Phone [...] + | Author | [facility] | | | and [place] | + + + | Organization | [facility] | [...] Providers + +------+ + | Care Press Brake Operator Name | Role | Phone | + +------+ + | Jonathan Alonso MD | PCP | | + +------+ + Encounter Details +--------+ + + + + | Date | Type | Department | Care Team | Description | +--------+ + + + + | 08/13/ | Emergency | [facility] | | | | 2019 | | MEDICAL CENTER | | | | | | EMERGENCY CENTER | | | | | | [address] | | | | | | [place], [place] | | | | | | [address] | | | | | | [phone] | | | +--------+ + + + [...] | | | renal disease) ([facility]) | protocol | | | | [...]
--- OUTSIDE RECORDS SUMMARY | ~2019-07-14 | XMS | Encounter Summary ---
Demographics + + + | Address | [address] | | | [place] [address] | + + + | Home Phone [...] | Author | [facility] | | | and [place] | + + + | Organization | [facility] | | [...] Providers + +------+ + | Care Registered Art Therapist Name | Role | Phone | [...] NEPHROLOGY [address] | M, DO [address] | | | | | [address] | [place], [address] | | | | | [place], [place] | [place], [place] | | | | | [address] | [address] | | | | | [phone] | | | +--------+ + + + [...] Palumbo - 12/29/2016 3:48 PM PDTOutside records: [facility] confidential health information for Verna-Suresh RX 60.0MG/300.0MCG/10.0MG Tablet. Dos : 12/29/16. Sent to scan. P DTdocumented in this encounter Plan of Treatment Not on filedocumented as of this encounter Visit Diagnoses Not on filedocumented in this encounter"
--- OUTSIDE RECORDS SUMMARY | ~2019-07-14 | XMS | Encounter Summary ---
Demographics + + + | Address | [address] | | | [place] [address] | + + + | Home Phone [...] | | | | | [place] [address] | | + + + + + | Thania Mallory | ECON | [address] | | | | | [place] [address] | | + + + + + | Deidra Weldon | ECON | [address] | | | | | [place] | | | | | [address] | | + + + + + Care Team Providers + +------+ + | Care Gluer And Slicer Hand Name | Role | Phone | [...] | | | | [facility] | | | | | | Keven | [place] | | | | | | Hospital | Children's | | | | | | [address] | [address] | | | | | | [address] | floor | | | | | | [place], | [place], [place] | | | | | | [place] | [address] | | | | | | [address] | Phone: | | | | | | Phone: | [phone] | | | | | | [phone] | | | | | | | Fax: | | | | | | | [phone] | | +--------+--------+ + + + + Encounter Details +--------+---------+ + + + | Date | Type | Department | Care Team | Description | +--------+---------+ + + + | 08/17/ | Office | Specialty Clinics | Sudhakar Joy | Anemia of chronic | | 2016 | Visit | at [facility] [address] | [address], [address] [address] [facility] | kidney failure, | | | | [address] | [address] | stage 5 (HCC) | | | | [place] | [place], [place] | (Primary Dx); [facility] | | | | [facility], | [address] | [facility] | | | [facility] floor | [phone] | [place]) nephritis | | | | [place], [place] | | | | | | [address] | | | | | | [phone] | | | +--------+---------+ + + + [...] good. She has moved into a new [facility]. She has collected enough money to [...] [facility] [address] Mail code [id number] [place], [place] [address] documented in this encounter Plan of Treatment +--------+ + + + + | Date | Type | Specialty | Care Team | Description | +--------+ + + + + | 05/04/ | Hospital | Adult Acute Care | El Starr MD | | | 2022 | Encounter | | [address] | | | | | | [place], [place] | | | | | | [address] | | | | | | [phone] | | | | | | | [...]
--- OUTSIDE RECORDS SUMMARY | ~2019-07-14 | XMS | Encounter Summary ---
Demographics + + + | Address | [address] | | | [place] [address] | + + + | Home Phone [...] Author | [facility] | | | and [place] | + + + | Organization | [facility] | | [...] Team Providers + +------+ + | Care Upfitter Name | Role | Phone | + [...] + + | 11/13/ | Telephone | [facility] | Silvia Rabago | DME ([facility]) | | 2019 | | [phone] | | | | | [place] | | | | | | [address] | | | | | | [phone] | | | +--------+ + + + [...]
--- OUTSIDE RECORDS SUMMARY | ~2019-07-14 | XMS | Encounter Summary ---
Demographics + + + | Address | [address] | | | [place] [address] | + + + | Home Phone [...] | | | | | [place] [address] | | + + + + + | Thania Mallory | ECON | [address] | | | | | [place] [address] | | + + + + + | Deidra Weldon | ECON | [address] | | | | | [place] | | | | | [address] | | + + + + + Care Team Providers + +------+ + | Care Base Remover Name | Role | Phone | + +------+ + PCP | Unavailable | + +------+ + Reason for Visit + + + | Reason | Comments | + + + | Transplant Form | residential program worker 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 | | Update | [...] dates | | | | [facility] [place], | [place], [place] | updated) | | | | [place] [address] | [address] | | | | | [phone] | [phone] | | | | | | | [...] Denise | | | | | | [place] | | | | | | [address] | | | | | | [phone] | | | | | | | | +--------+ + + + + documented as of this encounter Visit Diagnoses Not on filedocumented in this encounter"
--- OUTSIDE RECORDS SUMMARY | ~2019-07-14 | XMS | Encounter Summary ---
Demographics + + + | Address | [address] | | | [place] [address] | + + + | Home Phone [...] | | | | | [place] [address] | | + + + + + | Thania Mallory | ECON | [address] | | | | | [place] [address] | | + + + + + | Deidra Weldon | ECON | [address] | | | | | [place] | | | | | [address] | | + + + + + Care Team Providers + +------+ + | Care Healthcare Associate Name | Role | Phone | [...] | | | [address] | [place] | | | | | [place], | [place], [place] | | | | | [place] [address] | [address] | | | | | [phone] | [phone] | | | | | | | [...] Denise | | | | | | [place], [place] | | | | | | [address] | | | | | | [phone] | | | | | | | | +--------+ + + + + documented as of this encounter Visit Diagnoses Not on filedocumented in this encounter"
--- OUTSIDE RECORDS SUMMARY | ~2019-07-14 | XMS | Encounter Summary ---
Demographics + + + | Address | [address] | | | [place] [address] | + + + | Home Phone [...] | | | | | [place] [address] | | + + + + + | Thania Mallory | ECON | [address] | | | | | [place] [address] | | + + + + + | Deidra Weldon | ECON | [address] | | | | | [place] | | | | | [address] | | + + + + + Care Team Providers + +------+ + | Care Excellence Manager Name | Role | Phone | [...] | | | [address] | [facility] | screens) | | | | [place], | [place], [place] | | | | | [place] [address] | [address] | | | | | [phone] | | | +--------+ + + + [...] [place] | | | | | | [address] | | | | | | [phone] | | | | | | | | +--------+ + + + + documented as of this encounter Visit Diagnoses Not on filedocumented in this encounter"
--- OUTSIDE RECORDS SUMMARY | ~2019-07-14 | XMS | Encounter Summary ---
Demographics + + + | Address | [address] | | | [place] [address] | + + + | Home Phone [...] | | | | | [place] [address] | | + + + + + | Thania Mallory | ECON | [address] | | | | | [place] [address] | | + + + + + | Deidra Weldon | ECON | [address] | | | | | [place] | | | | | [address] | | + + + + + Care Team Providers + +------+ + | Care Yardage Caller Name | Role | Phone | + [...] | | Transplant Services | MD Emanuel [address] | Update (Evaluation | | | | [address] | [address] | Scheduled) | | | | [place], | [place], [place] | | | | | [place] [address] | [address] | | | | | [phone] | [phone] | | | | | | | [...] Denise | | | | | | [place] | | | | | | [address] | | | | | | [phone] | | | | | | | | +--------+ + + + + documented as of this encounter Visit Diagnoses Not on filedocumented in this encounter"
--- OUTSIDE RECORDS SUMMARY | ~2019-07-14 | XMS | Encounter Summary ---
Demographics + + + | Address | [address] | | | [place] [address] | + + + | Home Phone [...] | Author | [facility] | | | and Josephana | + + + | Organization | [facility] | | [...] Team Providers + +------+ + | Care Chef'S Assistant Name | Role | Phone | [...] | NEPHROLOGY [address] | | | | | [address] | [address] [place] | | | | | [place], [place] | [place] [address] | | | | | [address] | [phone] | | | | | [phone] | | | +--------+--------+ + + + [...]
--- OUTSIDE RECORDS SUMMARY | ~2019-07-14 | XMS | Encounter Summary ---
Demographics + + + | Address | [address] | | | [place] [address] | + + + | Home Phone [...] | Author | [facility] | | | and [place] | + + + | Organization | 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 [facility] Service: Medicine DISCHARGE SUMMARY Primary Care [...] be evaluated at local emergency room at [facility]. In the ER patient was evaluated by [...] transferred with the patient's paper documentation from [facility] ER). Initial labs: WBC 6.5, hemoglobin 11.0, [...] edema. Taken from Dr. Brooks [facility] (11/06/2018) HOSPITAL COURSE Patient was admitted [...] Left; Surgeon: Blake Chavarria MD ; Location: [facility] MAIN OR AV FISTULA REPAIR Left 03/07/2014 Procedure: AV FISTULA - GRAFT REPAIR/REVISION; Surgeon: Rik Simon MD; Location: [facility]; Service: Vascular; Laterality: Left; biopsy of kidney age 10 DIALYSIS FISTULA CREATION 04/08/2014 Procedure: DIALYSIS CATHETER - INSERTION; Surgeon: Rik Simon MD; Location: [facility] ; Service: Vascular; Laterality: N/A; tunneled catheter.br hemodialysis catheter KIDNEY BIOPSY Left 2003 OTHER SURGICAL HISTORY LAPAROSCOPIC PERITONEAL DIALYSIS CATHETER INSERTION - x2 OTHER SURGICAL HISTORY Right 07/2013 LAPAROSCOPIC PERITONEAL DIALYSIS CATHETER INSERTION - current dialysis access MWF dialysis OTHER SURGICAL HISTORY Left 06/24/2014 SUPERFICIALIZATION OF AV FISTULA - Procedure: AV FISTULA - SUPERFICIALIZATION; Surgeon: Emanuel Simon MD; Location: [facility] OR; Service: Vascular; Laterality: Left; OTHER SURGICAL HISTORY Left 04/08/2014 AV FISTULA PLACEMENT - Procedure: AV FISTULA; Surgeon: Rik Simon MD; Location: [facility]; Service: Vascular; Laterality: Left; cephalic OTHER SURGICAL HISTORY Left 03/07/2014 DECLOT GRAFT - Procedure: GRAFT - DECLOT; Surgeon: Rik Simon MD; Location: [facility] ; Service: Vascular; Laterality: Left; peritoneal catheter [...] Value Units Date/Time Culture, Body Fluid Sterile [[id number]] Collected: 11/07/18 1515 Order Status: Completed Lab Status: Preliminary result Updated: 11/09/18 1412 Specimen: Body Fluid from Pleural Fluid, Right Special Requests RIGHT SIDE Special Requests Testing performed at [facility];[address] [place] [address] Gram Stain Result NO CELLS OR ORGANISMS SEEN RESULT NO GROWTH 2 DAYS RESULT Testing performed at [facility], [address] [place] [address] Comment: Testing performed at [facility], [address] [place] [address] Culture, Body Fluid Sterile [[id number]] Order Status: Canceled Lab Status: No result [...] DANIEL Follow Up: Jonathan Alonso MD [address] [facility] [place] [address] In 1 week René Anguiano MD [address] [facility] [address] [place] [address] In [...] her sister. DME equipment order sent to [facility]. She refused oxygen delivery to the h ospital saying that she just wanted to go home. Orders state 1L for ambulating only.Electron leonardlly signed by Daniela Vyas RN at 11/09/2018 [...] UF. Hypervolemia has improved with HD/UF/thoracentesis. Acute [place] has been ruled out. Recommendations: Plan for [...] for continuity of chart review/care. Dictation software, Invrep, was used which may contain error for [...] note might be different from the [facility] Inpatient Progress Note Pt: Dara [...] swallowing. She reports a short spell of richa coughing last night but reported that she [...] Code status: FULL CODE Disposition: Inpatient Yefri Fantasma, Medical Student 11/08/2018 13:05 Associated attestation - [...] ng better. Darell Scott. MD Dex, MD Duaret, MD Cliff - 11/07/2018 10:24 AM PDT [...] hypervolemic and has recurrent hyperkalemia/metabolic acidosis. Acute [place] has been ruled out. Recommendations: Plan for [...] for continuity of chart review/care. Dictation software, Invrep, was used which may contain error for [...] WC valsartan 40 mg Oral Daily efri Meek, Medical Student - 11/07/2018 7:25 AM PDTFormatting of this note might be different from the [facility] Inpatient Progress Note Pt: Dara Louise AGE/SEX: 23 y.o. ROOM: [address] [place] [address] : 1995 PCP: Jonathan Alonso MD PATIENT [...] and dyspnea. The patient was seen at [facility] ER and then transferred to our internal [...] + | Billie Gupta MD 11/09/2018 9:34 [facility] | | | Center Hemo-Dialysis Procedure note [...] | | . 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 Compensation Programs Manager 240 | | | Constitutional: pt [...] Testing | 2.3 - 4.8 mg/dL | [facility] | | | | performed at [facility], [address] | | LABORATORY | | | | [address], | | | | | | [place] [address] | | | | + + + + + + + + | Specimen | + + | Blood | + + + + + + + | Performing | Address | City/State/Zipcode | Phone Number | | Organization | | | | + + + + + | [facility] | [address] | [place] [address] | [phone] | + + + + + Comprehensive [...] [address], | | | | | | [place] [address] | | | | + + + + + + + + | Specimen | + + | Blood | + + + + + + + | Performing | Address | City/State/Zipcode | Phone Number | | Organization | | | | + + + + + | [facility] | [address] | [place] [address] | [phone] | + + + + + CBC [...] | | | | | [place] [address] | | | | | | | | | | + + + + + + + + | Specimen | + + | Blood | + + + + + + + | Performing | Address | City/State/Zipcode | Phone Number | | Organization | | | | + + + + + | [facility] | [address] | [place] [address] | [phone] | + + + + + Ventura ROJAS (11/09/2018 4:14 AM PDT) + + + + + + | Component | Value | Ref Range | Performed | Pathologist | | | | | At | Signature | + + + + + + | INR | 1.3Comment: REFERENCE | | ANDREY | | | | RANGE:0.9 - 1.2 [...] | | | | | | [address];[place] | | | | | | [address] | | | | + + + + + + + + | Specimen | + + | Blood | + + + + + + + | Performing | Address | City/State/Zipcode | Phone Number | | Organization | | | | + + + + + | [facility] | [address] | [place] [address] | [phone] | + + + + + Comprehensive [...] [address], | | | | | | [place] [address] | | | | + + + + + + + + | Specimen | + + | Blood | + + + + + + + | Performing | Address | City/State/Zipcode | Phone Number | | Organization | | | | + + + + + | [facility] | [address] | [place] [address] | [phone] | + + + + + CBC [...] | | | | | at [facility], [address] | | | | | | [employer], | | | | | | [place] [address] | | | | | |Testing performed at [facility], [address] [place] [address] | | | | | | | | | | + + +---- + + + + + | Specimen | + + | Blood | + + + + + + + | Performing | Address | City/State/Zipcode | Phone Number | | Organization | | | | + + + + + | [facility] | [address] | [place] [address] | [phone] | + + + + + Protime [...] | | | | | [address];[place], [place] | | | | | | [address] | | | | + + + + + + + + | Specimen | + + | Blood | + + + + + + + | Performing | Address | City/State/Zipcode | Phone Number | | Organization | | | | + + + + + | [facility] | [address] | [place] [address] | [phone] | + + + + + XR [...] + | Sonido Steele Results In - 11/07/2018 4:55 PM PDT [...] is | | | punctured with an 5-Bulgarian thoracentesis catheter. Fluid is aspirated | | | without complication. The patient tolerated the procedure well. No | | | immediate complications. Estimated Blood Loss: Minimal. | | | IMPRESSION: Uncomplicated thoracentesis. 1500 mL of tea-colored | | | serous fluid are obtained and sent for laboratory analysis per the | | | clinician's orders. Signed by: Eliza Galvan, Florian Olivares | | | Date/Time: 11/07/2018 3:51 PM [...] the pleural space is punctured with an 5-Bulgarian | | thoracentesis catheter. Fluid is aspirated [...] | | LABORATORY | | | | Blvd;[place] [address] | | | | + + + [...] RESULT | Testing performed at | | [facility] | | | | [facility], [address] [facility] | | LABORATORY | | | | [place], [place] | | | | | | [address]Trfakrh: Testing | | | | | | performed at [facility], [address] | | | | | | [place], [place] | | | | | | [address] | | | | + + + + + + + + | Specimen | + + | Body Fluid - Pleural | | fluid specimen | | (specimen) | + + + + + + + | Performing | Address | City/State/Zipcode | Phone Number | | Organization | | | | + + + + + | [facility] | [address] | [place] [address] | [phone] | + + + + + Protein, Body Fluid (11/07/2018 3:15 PM PDT) + + + + + + | Component | Value | Ref Range | Performed | Pathologist | | | | | At | Signature | + + + + + + | Protein, | 3.4Comment: This is not | g/dL | [facility] | | | Body Fluid | a occupational health physician validated | | LABORATORY | | | | sample type for this | | | | | | method. No | | | | | | referenceranges have | | | | | | been established.Testing | | | | | | performed at [facility], [address] | | | | | [address] [facility], | | | | | | [place] [address] | | | | + + + + + + | SOURCE | PLEURAL FLUIDComment: | | MISHEL | | | | Testing performed at | | LABORATORY | | | | [facility];[address] | | | | | [address];[place] [address] | | | | + + + + + + + + | Specimen | + + | Body Fluid | + + + + + + + | Performing | Address | City/State/Zipcode | Phone Number | | Organization | | | | + + + + + | [facility] | [address] | [place] [address] | [phone] | + + + + + Lactate dehydrogenase, body fluid (11/07/2018 3:15 PM PDT) + + + + + + | Component | Value | Ref Range | Performed | Pathologist | | | | | At | Signature | + + + + + + | Lactate | 102Comment: This is not | U/L | [place] | | | Dehydrogena | a occupational health physician validated | | LABORATORY | | | se, Body | sample type for this | | | | | Fluid | method. No | | | | | | referenceranges have | | | | | | been established.Testing | | | | | | performed at [facility], [address] | | | | | [address] [facility], | | | | | | [place] [address] | | | | + + + + + + + + | Specimen | + + | Body Fluid | + + + + + + + | Performing | Address | City/State/Zipcode | Phone Number | | Organization | | | | + + + + + | [facility] | [address] | [place] [address] | [phone] | + + + + + Glucose, Body Fluid (11/07/2018 3:15 PM PDT) + + + + + + | Component | Value | Ref Range | Performed | Pathologist | | | | | At | Signature | + + + + + + | Glucose | 96Comment: This is not a | mg/dL | [facility] | | | Fluid | occupational health physician validated | | LABORATORY | | | | sample type for this | | | | | | method. No | | | | | | referenceranges have | | | | | | been established.Testing | | | | | | performed at [facility], [address] | | | | | [address], | | | | | | [place] [address] | | | | + + + + + + | SOURCE | PLEURAL FLUIDComment: | | MISHEL | | | | Testing performed at | | [facility] | | | | [facility];[address] | | | | | | [address] [address] | | | | + + + + + + + + | Specimen | + + | Body Fluid | + + + + + + + | Performing | Address | City/State/Zipcode | Phone Number | | Organization | | | | + + + + + | [facility] | [address] | [place] [address] | [phone] | + + + + + Cell [...] + + + | BF RBC | <00139 | /mm3 | [facility] | | | [...] | | | Counted | performed at [facility];[address] | | LABORATORY | | | | [address];[place], [place] | | | | | | [address] | | | | + + + + + + + + | Specimen | + + | Body Fluid | + + + + + + + | Performing | Address | City/State/Zipcode | Phone Number | | Organization | | | | + + + + + | [facility] | [address] | [place] [address] | [phone] | + + + + + Amylase, Body Fluid (11/07/2018 3:15 PM PDT) + + + + + + | Component | Value | Ref Range | Performed | Pathologist | | | | | At | Signature | + + + + + + | Amylase, | 46Comment: This is not a | U/L | [facility] | | | Body Fluid | occupational health physician validated | | LABORATORY | | | | sample type for this | | | | | | method. No | | | | | | referenceranges have | | | | | | been established.Testing | | | | | | performed at [facility], [address] | | | | | | [address] [facility], | | | | | | [place] [address] | | | | + + + + + + + + | Specimen | + + | Body Fluid | + + + + + + + | Performing | Address | City/State/Zipcode | Phone Number | | Organization | | | | + + + + + | [facility] | [address] | [place] [address] | [phone] | + + + + + Albumin, Body Fluid (11/07/2018 3:15 PM PDT) + + + + + + | Component | Value | Ref Range | Performed | Pathologist | | | | | At | Signature | + + + + + + | Albumin, | 2.0Comment: This is not | g/dL | [place] | | | Fluid | a occupational health physician validated | | LABORATORY | | | | sample type for this | | | | | | method. No | | | | | | referenceranges have | | | | | | been established.Testing | | | | | | performed at [facility], [address] | | | | | | [address], | | | | | | [place] [address] | | | | + + + + + + + + | Specimen | + + | Body Fluid | + + + + + + + | Performing | Address | City/State/Zipcode | Phone Number | | Organization | | | | + + + + + | [facility] | [address] | [place] [address] | [phone] | + + + + + Medical Cytology (11/07/2018 3:15 PM PDT) + + | Specimen | + + | Body Fluid - Pleural | | fluid specimen | | (specimen) | + + + + + | Narrative | Performed At | + + + | ORDERING | MD PATHOLOGY | | PHYSICIAN:Darell Kowalski MD PATIENT NAME:DARA LOUISE RAYEGENDER: | [employer] | | F : 1995 SPECIMEN(S): A [...] preparation was | | | performed by [facility], [address] [place] [address] | | | [place] [address] ([employer]ix Administrator: Matt Claudio D.O.; CLIA#: | | | [id number]).Professional interpretation was performed by [facility] | | | [facility], [address], | | | [place] [address] ([employer] Administrator: Daniel Larson M.D.; CLIA#: | | | [id number]).6 Diagnostician: Enrrique Nichols | | | TODD([facility])CytotechnologistDiagnostician: Daniel Larson | | | MDPathologistElectronically Signed 11/13/2018 | | |DESCRIPTION: | | |The preparations contain mesothelial cells, rare inflammatory cells, and acellular proteina ceous material. Atypical cytologic findings are not encountered. | | | | | |SPECIMEN ADEQUACY: | | |Satisfactory for Evaluation | | | | | |PERFORMING LABORATORY: | | |Technical preparation was performed by [facility], [address] [place] [address] ([employer] Administrator: Matt Claudio D.O.; CLIA#: [id number]). | | |Professional interpretation was performed by [facility], [address] [address] ([employer] Administrator: Daniel Larson M.D.; CLIA#: [id number]).6 | | | | | |Diagnostician: Enrrique BROOKS([facility]) | | |Benzol Still Operator | | |Diagnostician: Daniel Larson MD | [...] + + | Performing | Address | City/State/[facility] Cent[facility] | Phone Number | [...] (H)Comment: 0.04 | 0.00 - 0.04 | [facility] | | | | ng/mL [...] [facility];[address] | | | | | | Bl;[place] [address] | | | | + + + + + + + + | Specimen | + + | Blood | + + + + + + + | Performing | Address | City/State/Zipcode | Phone Number | | Organization | | | | + + + + + | [facility] | [address] | [place] [address] | [phone] | + + + + + ECG [...] [facility] | | | | | | [address];[place] | | | | | | [address] | | | | + + + + + + + + | Specimen | + + | Blood | + + + + + + + | Performing | Address | City/State/Zipcode | Phone Number | | Organization | | | | + + + + + | [facility] | [address] | [place] [address] | [phone] | + + + + + Platelet Count (11/07/2018 4:03 AM PDT) + + + + + + | Component | Value | Ref Range | Performed | Pathologist | | | | | At | Signature | + + + + + + | Platelet | 185Comment: Testing | 150 - 400 K/uL | [facility] | | | Count | performed at [facility], [address] | | LABORATORY | | | | [address], | | | | | | [place] [address] | | | | + + + + + + + + | Specimen | + + | Blood | + + + + + + + | Performing | Address | City/State/Zipcode | Phone Number | | Organization | | | | + + + + + | [facility] | [address] | [place] [address] | [phone] | + + + + + PTT (11/07/2018 4:03 AM PDT) + + + + + + | Component | Value | Ref Range | Performed | Pathologist | | | | | At | Signature | + + + + + + | PTT | 27Comment: Testing | 23 - 32 seconds | [facility] | | | | performed at [facility];[address] | | LABORATORY | | | | [address];[place], [place] | | | | | | [address] | | | | + + + + + + + + | Specimen | + + | Blood | + + + + + + + | Performing | Address | City/State/Zipcode | Phone Number | | Organization | | | | + + + + + | [facility] | [address] | [place] [address] | [phone] | + + + + + Lactate Dehydrogenase (11/07/2018 4:03 AM PDT) + + + + + + | Component | Value | Ref Range | Performed | Pathologist | | | | | At | Signature | + + + + + + | LDH TOTAL | 202Comment: Testing | 120 - 246 U/L | [facility] | | | | performed at [facility];[address] | | LABORATORY | | | | [address];[place], [place] | | | | | | [address] | | | | + + + + + + + + | Specimen | + + | Blood | + + + + + + + | Performing | Address | City/State/Zipcode | Phone Number | | Organization | | | | + + + + + | [facility] | [address] | [place] [address] | [phone] | + + + + + Magnesium [...] [place] | | | | | | [address] | | | | + + + + + + + + | Specimen | + + | Blood | + + + + + + + | Performing | Address | City/State/Zipcode | Phone Number | | Organization | | | | + + + + + | [facility] | [address] | [place] [address] | [phone] | + + + + + Comprehensive [...] | | | | | [place] [address] | | | | + + + + + + + + | Specimen | + + | Blood | + + + + + + + | Performing | Address | City/State/Zipcode | Phone Number | | Organization | | | | + + + + + | [facility] | [address] | [place] [address] | [phone] | + + + + + Troponin I (11/06/2018 9:54 PM PDT) + + + + + + | Component | Value | Ref Range | Performed | Pathologist | | | | | At | Signature | + + + + + + | Troponin I | 0.045 (H)Comment: 0.04 | 0.00 - 0.04 | [facility] | | | | ng/mL [...] [facility];[address] | | | | | | [facility];[place] [address] | | | | + + + + + + + + | Specimen | + + | Blood | + + + + + + + | Performing | Address | City/State/Zipcode | Phone Number | | Organization | | | | + + + + + | [facility] | [address] | [place] [address] | [phone] | + + + + + Protime INR (11/06/2018 5:32 PM PDT) + + + + + + | Component | Value | Ref Range | Performed | Pathologist | | | | | At | Signature | + + + + + + | INR | 1.3Comment: REFERENCE | | ANDREY | | | | RANGE:0.9 - 1.2 [...] | | | | | | [address];[place] | | | | | | [address] | | | | + + + + + + + + | Specimen | + + | Blood | + + + + + + + | Performing | Address | City/State/Zipcode | Phone Number | | Organization | | | | + + + + + | [facility] | [address] | [place] [address] | [phone] | + + + + + ECHO [...] (H)Comment: 0.04 | 0.00 - 0.04 | [facility] | | | | ng/mL [...] [facility];[address] | | | | | | [facility];[place] [address] | | | | + + + + + + + + | Specimen | + + | Blood | + + + + + + + | Performing | Address | City/State/Zipcode | Phone Number | | Organization | | | | + + + + + | [facility] | [address] | [place] [address] | [phone] | + + + + + Magnesium (11/06/2018 3:57 PM PDT) + + + + + + | Component | Value | Ref Range | Performed | Pathologist | | | | | At | Signature | + + + + + + | Magnesium | 2.4Comment: Testing | 1.7 - 2.4 mg/dL | [facility] | | | | performed at [facility], [address] | | LABORATORY | | | | [address], | | | | | | [place] [address] | | | | + + + + + + + + | Specimen | + + | Blood | + + + + + + + | Performing | Address | City/State/Zipcode | Phone Number | | Organization | | | | + + + + + | [facility] | [address] | [place] [address] | [phone] | + + + + + documented [...] | | | | | Intravenous, ONCE, [facility] 11/06/18 at | | PM PDT | | | | | 2315, For 1 dose | | | | | | + +-------+ +--------+---+---+ +---+---+ | | | +---+---+ + +-------+ +--------+---+---+ | HYDROmorphone (DILAUDID) | Given | 11/08/19 | 0.5 mg | | | | injection 0.5 mg 0.5 mg, | | 19 5:48 | | | | | Intravenous, ONCE, [facility] 11/07/18 at | | AM PDT | [...]
--- OUTSIDE RECORDS SUMMARY | ~2019-07-14 | XMS | Encounter Summary ---
Demographics + + + | Address | [address] | | | [place] [address] | + + + | Home Phone [...] Author | [facility] | | | and [place] | + + + | Organization | [facility] [...] Providers + +------+ + | Care Cut Lace Machine Operator Name | Role | [...] NEPHROLOGY [address] | M, DO [address] | | | | | [address] | [place] | | | | | [place], [place] | [place], [place] | | | | | [address] | [address] | | | | | [phone] | | | +--------+ + + + [...]
--- OUTSIDE RECORDS SUMMARY | ~2019-07-14 | XMS | Encounter Summary ---
Demographics + + + | Address | [address] | | | [place] [address] | + + + | Home Phone [...] | | | | | [place] [address] | | + + + + + | Thania Mallory | ECON | [address] | | | | | [place] [address] | | + + + + + | Deidra Weldon | ECON | [address] | | | | | [place] | | | | | [address] | | + + + + + Care Team Providers + +------+ + | Care Relay Adjuster Name | Role | Phone | [...] Shun | | | | | [address] | [facility] | | | | | [facility], | [place], [place] | | | | | [place] [address] | [address] | | | | | [phone] | | | +--------+ + + + [...] | | | | | | [place], [place] | | | | | | [address] | | | | | | [phone] | | | | | | | | +--------+ + + + + documented as of this encounter Visit Diagnoses Not on filedocumented in this encounter"
--- OUTSIDE RECORDS SUMMARY | ~2019-07-14 | XMS | Encounter Summary ---
Demographics + + + | Address | [address] | | | [place] [address] | + + + | Home Phone [...] | Author | [facility] | | | and [place] | + + + | Organization | [facility] [...] Providers + +------+ + | Care Video Intern Name | Role | Phone | [...] | | | DEPARTMENT [address] [place] | [address] | [place] [address] | | | | | [place], [place] | [phone] | | | | | [address] | | | | | | [phone] | | | +--------+ + + + [...]
--- OUTSIDE RECORDS SUMMARY | ~2019-07-14 | XMS | Encounter Summary ---
Demographics + + + | Address | [address] | | | [place] [address] | + + + | Home Phone [...] | Author | [facility] | | | and [place] | + + + | Organization | [facility] [...] Team Providers + +------+ + | Care Ribber Name | Role | Phone | + +------+ + PCP | Unavailable | + +------+ + Encounter Details +--------+ + + + + | Date | Type | Department | Care Team | Description | +--------+ + + + + | 08/30/ | Off-Site | RICAROD DILL | Jorje Camp | ESRD (end stage | | 2016 | Visit | NEPHROLOGY [address] | M, DO [address] | renal disease) ([facility]) | | | | [address] | [place] | (Primary Dx) | | | | [place], [place] | [place], [place] | | | | | [address] | [address] | | | | | [phone] | | | +--------+ + + + [...]
--- OUTSIDE RECORDS SUMMARY | ~2019-07-14 | XMS | Encounter Summary ---
Demographics + + + | Address | [address] | | | [place] [address] | + + + | Home Phone [...] | Author | [facility] | | | and [place] | + + + | Organization | [facility] | | | and [place] | [...] Providers + +------+ + | Care Administrative And Program Specialist Name | Role | Phone | + +------+ + | Jonathan Alonso MD | PCP | | + +------+ + Encounter Details +--------+ + + + + | Date | Type | Department | Care Team | Description | +--------+ + + + + | 10/17/ | Hospital | [facility] | Nikita, | ESRD (end stage | | 2019 - | Encounter | [facility]ICAL [facility]ENTER ACUTE | MD Na[address] | renal disease) | | | | CARE FLOOR [address] | ([facility]); Dilated | | 10/22/ | | [address] | [place] [address] | cardiomyopathy | | 2019 | | [place], [place] | [phone] | ([facility]); | | | | [address] | | Non-cardiogenic | | | | [phone] | Gerber Pearson MD | pulmonary edema; | | | | | [address] | Anemia in ESRD | | | | | [place] [address] | (end-stage renal | | | | | [phone] | disease) ([facility]); | | | | | [...] failure | | | | | | ([facility]); At high risk | | [...] might be different fr om the original. [facility]: Hospitalist Physician Discharge [...] is to follow up with her regular precision crop manager, Dr. Hurtado. DISCHARGE DIAGNOSES: 1. End-stage [...] Left; Surgeon: Blake Chavarria MD ; Location: [facility] MAIN OR AV FISTULA REPAIR Left 03/07/2014 Procedure: AV FISTULA - GRAFT REPAIR/REVISION; Surgeon: Rik Simon MD; Location: [facility] OR; Service: Vascular; Laterality: Left; biopsy of kidney age 10 DIALYSIS FISTULA CREATION 04/08/2014 Procedure: DIALYSIS CATHETER - INSERTION; Surgeon: Rik Simon MD; Location: [facility] OR ; Service: Vascular; Laterality: N/A; tunneled catheter.br hemodialysis catheter KIDNEY BIOPSY Left 2003 OTHER SURGICAL HISTORY LAPAROSCOPIC PERITONEAL DIALYSIS CATHETER INSERTION - x2 OTHER SURGICAL HISTORY Right 07/2013 LAPAROSCOPIC PERITONEAL DIALYSIS CATHETER INSERTION - current dialysis access MWF dialysis OTHER SURGICAL HISTORY Left 06/24/2014 SUPERFICIALIZATION OF AV FISTULA - Procedure: AV FISTULA - SUPERFICIALIZATION; Surgeon: Emanuel Simon MD; Location: [facility] MAIN OR; Service: Vascular; Laterality: Left; OTHER SURGICAL HISTORY Left 04/08/2014 AV FISTULA PLACEMENT - Procedure: AV FISTULA; Surgeon: Rik Simon MD; Location: [facility] OR; Service: Vascular; Laterality: Left; cephalic OTHER SURGICAL HISTORY Left 03/07/2014 DECLOT GRAFT - Procedure: GRAFT - DECLOT; Surgeon: Rik Simon MD; Location: [facility] OR ; Service: Vascular; Laterality: Left; peritoneal [...] have: Continued coughing Fever Date Last Reviewed: 02/04/201619998530-6103 [employer]. [address] [place] [address], [place] [address]. All righ ts reserved. This information is [...] by your healthcare provider Date Last Reviewed: 12/05/201519994448-[address] [employer] [place] [address], [place] [address]. All righ ts reserved. This information is [...] | | | | | renal disease) ([facility]) | protocol | | | [...] + + +---------+ + + | B Gbocyar-B-Silqr | Take 1 tablet by | | [...] I have discussed the case with the TEST CONSULTANT. I agree with his findings & documentation. [...] Carrasco MD - 10/21/2018 3:00 PM PDT [facility]: NEPHROLOGY Progress Note Dara Weldon 23 y.o. [id number] female Jonathan Alonso MD Hospital Day: [...] Left; Surgeon: Blake Chavarria MD ; Location: [facility] MAIN OR AV FISTULA REPAIR Left 03/07/2014 Procedure: AV FISTULA - GRAFT REPAIR/REVISION; Surgeon: Rik Simon MD; Location: [facility] OR; Service: Vascular; Laterality: Left; biopsy of kidney age 10 DIALYSIS FISTULA CREATION 04/08/2014 Procedure: DIALYSIS CATHETER - INSERTION; Surgeon: Rik Simon MD; Location: [facility] MAIN OR ; Service: Vascular; Laterality: N/A; tunneled catheter.br hemodialysis catheter KIDNEY BIOPSY Left 2003 OTHER SURGICAL HISTORY LAPAROSCOPIC PERITONEAL DIALYSIS CATHETER INSERTION - x2 OTHER SURGICAL HISTORY Right 07/2013 LAPAROSCOPIC PERITONEAL DIALYSIS CATHETER INSERTION - current dialysis access MWF dialysis OTHER SURGICAL HISTORY Left 06/24/2014 SUPERFICIALIZATION OF AV FISTULA - Procedure: AV FISTULA - SUPERFICIALIZATION; Surgeon: Emanuel Simon MD; Location: [facility] MA[facility] OR; Service: Vascular; Laterality: Left; OTHER SURGICAL HISTORY Left 04/08/2014 AV FISTULA PLACEMENT - Procedure: AV FISTULA; Surgeon: Rik Simon MD; Location: [facility] OR; Service: Vascular; Laterality: Left; cephalic OTHER SURGICAL HISTORY Left 03/07/2014 DECLOT GRAFT - Procedure: GRAFT - DECLOT; Surgeon: Rik Simon MD; Location: [facility] OR ; Service: Vascular; Laterality: Left; peritoneal [...] Social History Narrative She lives in [facility]. She does not work. She [...] MR, severe TR.severe pulmonary hyperten arturo Chest s-oao-tknduwvkwfqv with pulmonary edema and large right pleural [...] earlier and charting completed later Dictation software, [employer], used which may contain error for similar sounding words even af ter review. Personal communication requested for any clarification. Portions of my notes may have been carried over for continuity of care.Electronically ananth d by Antonio Benjamin MD at 10/21/2018 3:11 PM Gerber Fernandez MD - 10/21/2018 7:18 AM PD T [facility] Hospitalist Progress Note [...] BUN 90 on admission -History of a Keene Schnlein purpura -Last hemodialysis approximately 2 weeks [...] Camille D - 10/20/2018 9:09 AM PDT [facility] Hospitalist Progress [...] BUN 90 on admission -History of a Keene Schnlein purpura -Last hemodialysis approximately 2 weeks [...] [facility] | | | | performed at [facility], [address] | | LABORATORY | | | | [address], | | | | | | [place] [address] | | | | + + + + + + + + | Specimen | + + | Blood | + + + + + + + | Performing | Address | City/State/Zipcode | Phone Number | | Organization | | | | + + + + + | [facility] | [address] | [place] [address] | [phone] | + + + + + Basic [...] 7 (L)Comment: GFR <60: | >60 | [facility] | | | GFR | [...] | | | | | | MDRD IDKS traceable | | | | | | equation.Testing | | | | | | performed at [facility], [address] | | | | | | [facility], | | | | | | [place] [address] | | | | + + + [...] LABORATORY | [address] | [place] [address] | [phone] | + + + + + Basic [...] 11 (L)Comment: GFR <60: | >60 | [facility] | | | GFR | [...] | | | | | | MDRD IDKS traceable | | | | | | equation.Testing | | | | | | performed at [facility], [address] | | | | | | [facility], | | | | | | [place] [address] | | | | + + + [...] [facility] | [address] | [place] [address] | [phone] | + + + + + Basic [...] 9 (L)Comment: GFR <60: | >60 | [facility] | | | GFR | [...] performed at [facility] | | | | | | [facility];[place], [place] | | | | | | [address] | | | | + + + + + + + + | Specimen | + + | Blood - Right upper | | arm structure (body | | structure) | + + + + + + + | Performing | Address | City/State/Zipcode | Phone Number | | Organization | | | | + + + + + | [facility] | [address] | [place] [address] | [phone] | + + + + + documented [...] | | | for platelets less than [phone], | | + +---+ | | | [...]
--- OUTSIDE RECORDS SUMMARY | ~2019-07-14 | XMS | Encounter Summary ---
Demographics + + + | Address | [address] | | | [place] [address] | + + + | Home Phone [...] + | Author | [facility] | | | and [place] | + + + | Organization | [facility] | [...] Providers + +------+ + | Care Electrical Experimental Mechanic Name | Role | Phone | + +------+ + | Tien Nicholson MD | PCP | | + +------+ + Encounter Details +--------+ + + + + | Date | Type | Department | Care Team | Description | +--------+ + + + + | 08/20/ | Hospital | [facility] | Ramón Dunn | Non-cardiogenic | | 2019 - | Encounter | MEDICAL CENTER ACUTE | MD Juan Alberto [address] | pulmonary edema | | | | CARE FLO[address] [place], [place] | | | [address]/23/ | [address] | [address] | | | 2019 | | [place], [place] | | | | | | [address] | | | | | | [phone] | | | +--------+ + + + [...] 1300 Date of Service: 08/23/18818 Status: Signed Finishing Range Operator: Paty Kline DO (Physician) Patient: Dara Weldon [...] [facility] in [place] on 08/21 for dyspnea and underwent right t horacentesis with removal of 2.5L of fluid. Patient was sent home after the procedure. Muriel rtly thereafter patient became very short of breath and started having pinkish frothy sputum . Patient also developed right-sided chest pain over area of thoracentesis. She returned t o emergency department of [facility]. Patient was tachycardic and short of b reath but was saturating well on room air. Chest x-ray showed pulmonary edema of right bridgette g but left lung was reportedly normal. Patient was transferred to [facility] for acute hypoxic respiratory failure and [...] Nicholson MD [address] [place] [id number] Medication List CHANGE how you take these [...] | | | renal disease) ([facility]) | protocol | | | [...] 08/23/181305 Date of Service: 08/23/181305 Status: Signed Finishing Range Operator: Mitzy Schilling RN (Registered Nurse) Pt A&Ox4, [...] Date of Service: 08/23/18 1144 Status: Signed Finishing Range Operator: Patria Norman RN (Registered Nurse) CM placed call to Pts PCP and they will contact pt to schedule follow up appointment as gopal n as possible. CM placed call to [facility] Pulmonology to attempt to move pts [...] 08/23/181136 Date of Service: 08/23/181136 Status: Signed Finishing Range Operator: Mitzy Schilling RN (Registered Nurse) Resumed care from ABRIL Carranza. Agree with assessments thus far. Will continue to monitor. Mitzy Schilling RN onver arturo Transaction, Provider Unknown - 08/23/2018 2:34 AM PDT Nurse Progress Note by Hannah Madrigal RN at 08/23/184 Author: Hannah Madrigal RN Service: (none) Author Type: Registered Nurse Filed: 08/23/18 0530 Date of Service: 08/23/18233 Status: Signed Finishing Range Operator: Hannah Madrigal RN (Registered Nurse) VSS, pt [...] 08/22/181827 Date of Service: 08/22/181823 Status: Signed Finishing Range Operator: Paco Macedo RN (Registered Nurse) Patient is [...] Author: Brent Greenberg Service: (none) Author Type: Voltage Tester Filed: 08/22/181808 Date of Service: 08/22/181800 Status: Signed Finishing Range Operator: Brent Greenberg (Voltage Tester) cnc machine programmer appreciated. Pt sitting up in bed. Pt [...] find a grief support group in [facility] where she lives. Chp affirmed this as an excellent idea. [facility] assured pt of continuing g ood thoughts for pt. Pt thanked [facility] for visit. Chaplain Brent Greenberg pPaty samson DO - 08/22/2018 2:55 PM PDT Progress Notes by Paty Kline DO at 08/22/18 7238 Author: Paty Kline DO Service: Hospitalist Author Type: Physician Filed: 08/22/18 4105 Date of Service: 08/22/18 2593 Status: Addendum Finishing Range Operator: Paty Klnie DO (Physician) Related Notes: Original Note by Paty Kline DO (Physician) filed at 08/22/18 5596 [facility] Service: Hospitalist Progress Note Hospital [...] May 2018 presented to emergency department of [facility] in [place] this morning and underwent right thoracentesis. Patient was sent home after the procedure. However patient became very short of breath and started havi ng pinkish frothy sputum. Patient also developed right-sided chest pain over area of thorac entesis. Hence she returned to emergency department of [facility]. Patient w as tachycardic and short of breath but was saturating well on room air. Chest x-ray showed pulmonary edema of right lung but left lung was normal as per ED physician." Patient was transferred to [facility] for monitoring as she will need [...] 08/22/18932 Date of Service: 08/22/18928 Status: Signed Finishing Range Operator: Jessica Martell RN (Registered Nurse) 08/22/18922 Discharge Planning Evaluation Admitting Diagnosis Non-cardiogenic pulmonary edema Readmission No Living Arrangements Alone Support Systems Friends/neighbors;Family members Type of Residence Private residence House type Apartment Bathrooms on 1st Floor 1-Full Independent with ADL's Yes Independent with Mobility Yes Home Care Services No Caregiver after Discharge No Mental Status Oriented Prior functional status independent Power of Thermal Engineer No Anticipated Discharge Plan Post Acute [...] concerns and states she uses hemodialysis at [facility] on Mon, Wed, Fri but denies [...] 08/22/18435 Date of Service: 08/22/18433 Status: Signed Finishing Range Operator: Jaymie Tafoya RN (Registered Nurse) Pt currently [...] 183 Date of Service: 08/21/181828 Status: Signed Finishing Range Operator: Luz Pablo RN (Registered Nurse) Complains of rib/upper abdomen pain. Medicated, pain improved. Ambulating in room. HD today , 2.7L off. HD in a.m. At 0600. End of shift review complete. Paty Godinez DO - 08/21/2018 7:24 AM PDT Progress Notes by Paty Kline DO at 08/21/18 3502 Author: Paty Kline DO Service: Hospitalist Author Type: Physician Filed: 08/21/18 2453 Date of Service: 08/21/18723 Status: Signed Finishing Range Operator: Paty Kline DO (Physician) [facility] Service: Hospitalist Progress Note Hospital [...] May 2018 presented to emergency department of [facility] in [place] this morning and underwent right thoracentesis. Patient was sent home after the procedure. However patient became very short of breath and started havi ng pinkish frothy sputum. Patient also developed right-sided chest pain over area of thorac entesis. Hence she returned to emergency department of [facility]. Patient w as tachycardic and short of breath but was saturating well on room air. Chest x-ray showed pulmonary edema of right lung but left lung was normal as per ED physician." Patient was transferred to [facility] for monitoring as she will need [...] Note by Anahy Springer RN at 08/21/18 0044 Author: Anahy Springer RN Service: (none) Author Type: Registered Nurse Filed: 08/21/18 3311 Date of Service: 08/21/18 6343 Status: Addendum Finishing Range Operator: Anahy Springer RN (Registered Nurse) Related Notes: Original Note by Anahy Srpinger RN (Registered Nurse) filed at 08/21/18 2092 VSS. Pt c/o pain x2, pt medicated [...] 08/20/181901 Date of Service: 08/20/181901 Status: Signed Finishing Range Operator: Kacy Moody RPH (Pharmacist) Clinical Pharmacy Note: [...] | | | | | performed at [facility];[address] | | | | | | [address];[place] | | | | | | [address] | | | | + + + [...] | | | | performed at [facility], [address] | | | | | | [facility], | | | | | | [place] [address] | | | | | |MACRO | | | | | |Testing performed at [facility], [address] [facility] [place] [address] | | | | | | | [...] | | | | performed at [facility], [address] | | LAB | | | | [address], | | | | | | [place] [address] | | | | + + + [...] | | | | performed at [facility], [address] | | LAB | | | | [address], | | | | | | [place] [address] | | | | + + + [...] | | | | performed at [facility], [address] | | | | | | [facility], | | | | | | [place] [address] | | | | + + + [...] EXTERNAL | | | | performed at [facility];[address] | | LAB | | | | [address];[place] | | | | | | [address] | | | | + + + [...] | | | | | performed at [facility];[address] | | | | | | [address];[place], [place] | | | | | | [address] | | | | + + + [...]
--- OUTSIDE RECORDS SUMMARY | ~2019-07-14 | XMS | Encounter Summary ---
Demographics + + + | Address | [address] | | | [place] [address] | + + + | Home Phone [...] | | | | | [place] [address] | | + + + + + | Thania Mallory | ECON | [address] | | | | | [place] [address] | | + + + + + | Deidra Weldon | ECON | [address] | | | | | [place] | | | | | [address] | | + + + + + Care Team Providers + +------+ + | Care Core Measures Abstractor Name | Role | Phone | + [...] | Nephrology at | MD Emanuel [address] | f/u appt on | | | | [place] | [address] | 03/16/12 to [place]) | | | | [facility] | [place], [place] | | | | | [address] | [address] | | | | | [place] | [phone] | | | | | [facility], | | | | | | [address] [place] [address] | | | | | | [place], [place] | | | | | | [address] | | | | | | [phone] | | | +--------+ + + + [...] Denise | | | | | | [place], [place] | | | | | | [address] | | | | | | [phone] | | | | | | | | +--------+ + + + + documented as of this encounter Visit Diagnoses Not on filedocumented in this encounter"
--- OUTSIDE RECORDS SUMMARY | ~2019-07-14 | XMS | Encounter Summary ---
Demographics + + + | Address | [address] | | | [place] [address] | + + + | Home Phone [...] | | | | | [place] [address] | | + + + + + | Thania Mallory | ECON | [address] | | | | | [place] [address] | | + + + + + | Deidra Weldon | ECON | [address] | | | | | [place] | | | | | [address] | | + + + + + Care Team Providers + +------+ + | Care Appellate Conferee Name | Role | Phone | + [...] | | | | | [address] [place], | [place], [place] | | | | | [place] [address] | [address] | | | | | [phone] | | | +--------+ + + + [...] Denise | | | | | | [place] | | | | | | [address] | | | | | | [phone] | | | | | | | | +--------+ + + + + documented as of this encounter Visit Diagnoses Not on filedocumented in this encounter"
--- OUTSIDE RECORDS SUMMARY | ~2019-07-14 | XMS | Encounter Summary ---
Demographics + + + | Address | [address] | | | [place] [address] | + + + | Home Phone [...] | | | | | [place] [address] | | + + + + + | Thania Mallory | ECON | [address] | | | | | [place] [address] | | + + + + + | Deidar Weldon | ECON | [address] | | | | | [place] | | | | | [address] | | + + + + + Care Team Providers + +------+ + | Care Varnisher Name | Role | Phone | + [...] | Nephrology at | MD Emanuel [address] [facility] | | | | | [place] | [facility] | | | | | [facility] | [place], [place] | | | | | [address] [facility] | [address] | | | | | [place] | [phone] | | | | | [facility], | | | | | | [address] [place] [address] | | | | | | [place], [place] | | | | | | [address] | | | | | | [phone] | | | +--------+ + + + [...] Denise | | | | | | [place], [place] | | | | | | [address] | | | | | | [phone] | | | | | | | | +--------+ + + + + documented as of this encounter Visit Diagnoses Not on filedocumented in this encounter"
--- OUTSIDE RECORDS SUMMARY | ~2019-07-14 | XMS | Encounter Summary ---
Demographics + + + | Address | [address] | | | [place] [address] | + + + | Home Phone [...] | [facility] | | | and [place] | + + + | Organization | [facility] | | | and [place] [...] Providers + +------+ + | Care Contact Lens Polisher Name | Role | Phone | [...] NEPHROLOGY [address] | M, DO [address] | | | | | [address] | [place] | | | | | [place], [place] | [place], [place] | | | | | [address] | [address] | | | | | [phone] | | | +--------+ + + + [...] PM PDTManually faxed demographic sheet, copy of [employer] ce cards, progress note from 04/28/14 and 02/24/14 on 05/29/14 to Manny Whaley MD for up coming appointment. docume nted in this encounter Plan of Treatment Not on filedocumented as of this encounter Visit Diagnoses Not on filedocumented in this encounter"
--- OUTSIDE RECORDS SUMMARY | ~2019-07-14 | XMS | Encounter Summary ---
Demographics + + + | Address | [address] | | | [place] [address] | + + + | Home Phone [...] + | Author | [facility] | | | and Josephana | + + + | Organization | [facility] | | [...] Team Providers + +------+ + | Care Pulp House Supervisor Name | Role | Phone | [...] ESRD (end | Sudhakar Castellanos, | Jorje bOrien DO | | | | | stage renal | [address] | [address] [place] [address] | | | | | disease) | Shun Griffin | Jaciel Gotti | | | | | ([facility]LY [facility]) | [address] | [address] | | | | | Anemia in | [place], [place] | [place] | | | | | ESRD | [address] | [address] Phone: | | | | | (end-stage | Phone: | [phone] | | | | | renal | [phone] | Fax: | | | | | disease) | Fax: | [phone] | | | | | ([facility]LY [facility]) | [phone] | | | | | | Procedures [...] | | [address] | [place] | (Primary Dx) | | | | [place], [place] | [place], [place] | | | | | [address] | [address] | | | | | [phone] | | | +--------+ + + + [...]
--- OUTSIDE RECORDS SUMMARY | ~2019-07-14 | XMS | Encounter Summary ---
Demographics + + + | Address | [address] | | | [place] [address] | + + + | Home Phone [...] | | | | | [place] [address] | | + + + + + | Thania Mallory | ECON | [address] | | | | | [place] [address] | | + + + + + | Deidra Weldon | ECON | [address] | | | | | [place] | | | | | [address] | | + + + + + Care Team Providers + +------+ + | Care Press Tender Name | Role | Phone | [...] | | | | [address] [place] | [facility] | | | | | [place], | [place], [place] | | | | | [place] [address] | [address] | | | | | [phone] | | | +--------+ + + + [...] [facility] | | | | | | [address] | | | | | | [phone] | | | | | | | | +--------+ + + + + documented as of this encounter Visit Diagnoses Not on filedocumented in this encounter"
--- OUTSIDE RECORDS SUMMARY | ~2019-07-14 | XMS | Encounter Summary ---
Demographics + + + | Address | [address] | | | [place] [address] | + + + | Home Phone [...] | | | | | [place] [address] | | + + + + + | Thania Mallory | ECON | [address] | | | | | [place] [address] | | + + + + + | Deidra Weldon | ECON | [address] | | | | | [place] | | | | | [address] | | + + + + + Care Team Providers + +------+ + | Care Head Turbine Operator Name | Role | Phone | [...] | | | | [facility] | [facility] | | | | | | Keven | [place] | | | | | | [facility] | Children's | | | | | | [address] | [address] | | | | | | [address] | floor | | | | | | [place], | [place], [place] | | | | | | [place] | [address] | | | | | | [address] | Phone: | | | | | | Phone: | [phone] | | | | | | [phone] | | | | | | | Fax: | | | | | | | [phone] | | +--------+--------+ + + + + Encounter Details +--------+---------+ + + + | Date | Type | Department | Care Team | Description | +--------+---------+ + + + | 08/17/ | Office | Specialty Clinics | Sudhakar Joy | Anemia of chronic | | 2016 | Visit | at [facility] [address] | [address], [address] | kidney failure, | | | | [address] | [address] | stage 5 (HCC) | | | | [place] | [place], [place] | (Primary Dx); [facility] | | | | [facility], | [address] | [facility] floor | [phone] | purpura) nephritis | | | | [place], [place] | | | | | | [address] | | | | | | [phone] | | | +--------+---------+ + + + [...] Services [address] Mail code [facility] [place], [place] [address] documented in this encounter Plan of Treatment [...] [place] | | | | | | [address] | | | | | | [phone] | | | | | | | [...]
--- OUTSIDE RECORDS SUMMARY | ~2019-07-14 | XMS | Encounter Summary ---
[...] | | | | | [place] [address] | | + + + + + | Thania Mallory | ECON | [address] | | | | | [place] [address] | | + + + + + | Deidra Weldon | ECON | [address] | | | | | [place] | | | | | [address] | | + + + + + Care Team Providers + +------+ + | Care Mohel Name | Role | Phone | + [...] Rd | | | | | | [place], [place] | | | | | | [address] | | | +--------+ + + + [...] [place] | | | | | | [address] | | | | | | [phone] | | | | | | | | +--------+ + + + + documented as of this encounter Visit Diagnoses [facility]"
--- OUTSIDE RECORDS SUMMARY | ~2019-07-14 | XMS | Encounter Summary ---
Demographics + + + | Address | [address] | | | [place] [address] | + + + | Home Phone [...] | [facility] | | | and Josephana | + + + | Organization | [facility] | | [...] Team Providers + +------+ + | Care Slurry Mixer Name | Role | Phone | [...] + + | 01/22/ | Refill | [facility] | Daniela Alejandre | Medication Refill | | 2018 | | CARDIOLOGY GERALD Castellanos Scrap Handler | | | | | [address] | | | | | | [place] | | | | | | [address] | | | | | | [phone] | | | +--------+--------+ + + + [...]
--- OUTSIDE RECORDS SUMMARY | ~2019-07-14 | XMS | Encounter Summary ---
Demographics + + + | Address | [address] | | | [place] [address] | + + + | Home Phone [...] + | Author | [facility] | | | and [place] | + + + | Organization | [facility] [...] Providers + +------+ + | Care Test Analyst Name | Role | Phone | [...] + + | 12/10/ | Hospital | [facility] | Rayray Powers MD | Sepsis, due to | | 2019 - | Encounter | [facility] | [address] | unspecified | | | | CARE FLOOR [address] | [place], [place] | organism, | | 12/14/ | | [address] | [address] | unspecified whether | | 2019 | | [place], [place] | [phone] | acute organ | | | | [address] | | dysfunction present | | | | [phone] | Lee Harris MD | ([facility]) (Primary Dx); | | | | | [address] | Pneumonia of right | | | | | [place] [address] | lower lobe due to | | | | | [phone] | infectious organism; | | | | | | Hypoxia; | | | | | Jw Neri, DO [address] | Hypervolemia, | | | | | [address] | unspecified | | | | | [place] [address] | hypervolemia type; | | | | | [phone] | ESRD on dialysis | | | | | | ([facility]); Hyperkalemia; | | | | | | Acute on chronic | | | | | | respiratory failure | | | | | | with hypoxia and | | | | | | hypercapnia ([facility]); | | | | | | Acute respiratory | | | | | | failure with hypoxia | | | | | | ([facility]); Anemia in | | | | | | ESRD (end-stage | | | | | | renal disease) | | | | | | ([facility] [...] | | | | | | failure ([facility]); | | | | | | Chronic right-sided | | | | | | heart failure ([facility]); | | | | | | 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 | | | | | | ([facility]); ESRD on | | | | | | hemodialysis ([facility]); | | | [...] | | | | | | function ([facility]); | | | | | | Moderate to severe | | | | | | pulmonary | | | | | | hypertension ([facility]); | | | | | | Low grade fever; | | | | | | Noncompliance of | | | | | | patient with renal | | | | | | dialysis ([facility]); | | | [...] note might be different from pierre coleman. [facility] Service: Hospitalist Physician Discharge Summary Patient [...] bacteria 12/12/2018 Clotted dialysis access ([facility]) 2014 Congestive heart failure ([facility]) ESRD (end stage renal disease) ([facility]) HSP (Henoch-Schonlein purpura) nephritis ([facility]) 1987 Hypertension Pericardial effusion without cardiac tamponade 11/07/2018 Past Surgical History: Procedure Laterality Date ABDOMEN SURGERY AV FISTULA REPAIR 02/24/2014 LEFT Radical Cephalic Fistula Creation; Laterality: Left; Surgeon: Blake Chavarria MD ; Location: [facility] MAIN OR AV FISTULA REPAIR Left 03/07/2014 Procedure: AV FISTULA - GRAFT REPAIR/REVISION; Surgeon: Rik Simon MD; Location: [facility] OR; Service: Vascular; Laterality: Left; biopsy of kidney age 10 DIALYSIS FISTULA CREATION 04/08/2014 Procedure: DIALYSIS CATHETER - INSERTION; Surgeon: Rik Simon MD; Location: [facility] OR ; Service: Vascular; Laterality: N/A; tunneled catheter.br hemodialysis catheter KIDNEY BIOPSY Left 2003 OTHER SURGICAL HISTORY LAPAROSCOPIC PERITONEAL DIALYSIS CATHETER INSERTION - x2 OTHER SURGICAL HISTORY Right 07/2013 LAPAROSCOPIC PERITONEAL DIALYSIS CATHETER INSERTION - current dialysis access MWF dialysis OTHER SURGICAL HISTORY Left 06/24/2014 SUPERFICIALIZATION OF AV FISTULA - Procedure: AV FISTULA - SUPERFICIALIZATION; Surgeon: Emanuel Simon MD; Location: [facility] MAIN OR; Service: Vascular; Laterality: Left; OTHER SURGICAL HISTORY Left 04/08/2014 AV FISTULA PLACEMENT - Procedure: AV FISTULA; Surgeon: Rik Simon MD; Location: [facility] OR; Service: Vascular; Laterality: Left; cephalic OTHER SURGICAL HISTORY Left 03/07/2014 DECLOT GRAFT - Procedure: GRAFT - DECLOT; Surgeon: Rik Simon MD; Location: [facility] OR ; Service: Vascular; Laterality: Left; peritoneal [...] hours. No results for input(s): PHART, PO2ART, UXQ2NME, M0CSXMIB, BEART in the last 168 hours. No results for input(s): APTT, INR, PTT in the last 168 hours. No results for input(s): TSH in the last 168 hours. Invalid input(s): T3FREE, FREET4 No results for input(s): TROPONINT in the last 168 hours. Invalid input(s): CKTOTAL, TROPONINI, CKMBINDEX Disposition: home No discharge procedures on file. Follow up: Jonathan Alonso MD [address] [facility] [address] Schedule an appointment as soon as possible for a visit hospital follow up Jorje Camp, [address] [facility] [address] [facility] [address] Schedule an appointment as soon as possible [...] be sent through Care Everywhere.Leti Whitt (Adult) (Singaporean)documented in this encounter Medications at Time of [...] Yanes MD - 12/14/2018 10:16 AM PDT [facility] Service: Infectious Diseases Progress Note Hospital [...] Procedure Component Value Units Date/Time Culture, Blood [[id number]] Collected: 12/12/18 1943 Order Status: Canceled Lab Status: No result Specimen: Peripheral Blood Culture, Body Fluid Sterile [[id number]] Order Status: No result Lab Status: No result Specimen: Body Fluid from Pleural Fluid, Right Culture, Blood [[id number]] Collected: 12/12/18 0502 Order Status: Completed Lab Status: Preliminary result Updated: 12/13/18 1324 Specimen: Peripheral Blood Special Requests RWRIST Special Requests Testing performed at [facility];[address] [place] [address] RESULT NO GROWTH AT THIS TIME RESULT Testing performed at [facility], [address] [place] [address] Comment: Testing performed at [facility], [address] [place] [address] Influenza A and B RNA, NAAT [[id number]] Collected: 12/11/18 1556 Order Status: Completed Lab Status: Final result Updated: 12/11/18 1619 Influenza A NEGATIVE Influenza B NEGATIVE Comment: Testing performed by Molecular Methodology Testing performed at [facility];[address] [place] [address] Flu Swab Collection [[id number]] Collected: 12/11/18 1546 Order Status: Completed Lab Status: Final result Updated: 12/11/18 1549 Specimen: Tissue from Nasopharynx Collection SPECIMEN RECEIVED IN LAB Comment: Testing performed at [facility];[address] [place] [address] Culture, Blood [[id number]] Collected: 12/11/18 0615 Order Status: Completed Lab Status: Preliminary result Updated: 12/12/18 1134 Specimen: Peripheral Blood Special Requests RAC Special Requests Testing performed at [facility];[address] [place] [address] RESULT NO GROWTH AT THIS TIME RESULT Testing performed at [facility], [address] [place] [address] Comment: Testing performed at [facility], [address] [place] [address] Culture, Blood [[id number]] (Abnormal) Collected: 12/10/18 2343 Order Status: Completed Lab Status: Final result Updated: 12/13/18 1009 Specimen: Blood from Line Gram Stain Result -- GRAM POSITIVE COCCI IN CLUSTERS SEEN IN AEROBIC BOTTLE SEEN IN ANAEROBIC BOTTLE Gram Stain Result -- SMEAR RESULTS CALLED TO AND READ BACK BY: Brigitte CARTER @ 017 12/11/18 CDS RESULT STAPHYLOCOCCUS SPECIES, COAGULASE NEGATIVE RESULT GROWTH IN TWO OF TWO BOTTLES RESULT -- TIME TO DETECTION: 0.69 DAYS RESULT POSSIBLE CONTAMINANT, CLINICAL CORRELATION REQUIRED. RESULT Testing performed at [address] [address] Comment: Testing performed at [facility], [address] [place] [address] Microbiology Results (72 hrs) Procedure Component Value Units Date/Time Culture, Blood [[id number]] Collected: 12/12/18 0502 Order Status: Completed Lab Status: Preliminary result Updated: 12/13/18 1324 Specimen: Peripheral Blood Special Requests RWRIST Special Requests Testing performed at [facility];[address] [place] [address] RESULT NO GROWTH AT THIS TIME RESULT Testing performed at [facility], [address] [place] [address] Comment: Testing performed at [facility], [address] [place] [address] Influenza A and B RNA, NAAT [[id number]] Collected: 12/11/18 1556 Order Status: Completed Lab Status: Final result Updated: 12/11/18 1619 Influenza A NEGATIVE Influenza B NEGATIVE Comment: Testing performed by Molecular Methodology Testing performed at [facility];[address] [place] [address] Flu Swab Collection [[id number]] Collected: 12/11/18 1546 Order Status: Completed Lab Status: Final result Updated: 12/11/18 1549 Specimen: Tissue from Nasopharynx Collection SPECIMEN RECEIVED IN LAB Comment: Testing performed at [facility];[address] [place] [address] IMAGING: No new images for review today. [...] was completed later after rounds. Dictation software, Leap, was used which may contain error for [...] Santos, DO - 12/04 2:42 PM PDT [facility] Service: Hospitalist Progress Note Pt: Dara [...] PASP is 73 mmHg - Baseline weight [id number]. In acute exacerbation - HD per nephrology [...] this note might be different from the [facility] Service: Infectious Diseases Progress [...] Consult Continuous Infusions: heparin 400 Units/hr (12/12/18 8640) PRN Meds:.acetaminophen, albumin, albuterol-ipratropium, nitroglycerin, ondansetron, oxyCOD [...] Procedure Component Value Units Date/Time Culture, Blood [[id number]] Collected: 12/12/18 1943 Order Status: Canceled Lab Status: No result Specimen: Peripheral Blood Culture, Body Fluid Sterile [[id number]] Order Status: No result Lab Status: No result Specimen: Body Fluid from Pleural Fluid, Right Culture, Blood [[id number]] Collected: 12/12/18 0502 Order Status: Sent Lab Status: In process Updated: 12/12/18 1005 Specimen: Peripheral Blood Influenza A and B RNA, NAAT [[id number]] Collected: 12/11/18 1556 Order Status: Completed Lab Status: Final result Updated: 12/11/18 1619 Influenza A NEGATIVE Influenza B NEGATIVE Comment: Testing performed by Molecular Methodology Testing performed at [facility];[address] [place] [address] Flu Swab Collection [[id number]] Collected: 12/11/18 1546 Order Status: Completed Lab Status: Final result Updated: 12/11/18 1549 Specimen: Tissue from Nasopharynx Collection SPECIMEN RECEIVED IN LAB Comment: Testing performed at [facility];[address] [place] [address] Culture, Blood [[id number]] Collected: 12/11/18 0615 Order Status: Completed Lab Status: Preliminary result Updated: 12/12/18 1134 Specimen: Peripheral Blood Special Requests RAC Special Requests Testing performed at [facility];[address] [place] [address] RESULT NO GROWTH AT THIS TIME RESULT Testing performed at [facility], [address] [place] [address] Comment: Testing performed at [facility], [address] [place] [address] Culture, Blood [[id number]] (Abnormal) Collected: 12/10/18 2343 Order Status: Completed Lab Status: Final result Updated: 12/13/18 1009 Specimen: Blood from Line Gram Stain Result -- GRAM POSITIVE COCCI IN CLUSTERS SEEN IN AEROBIC BOTTLE SEEN IN ANAEROBIC BOTTLE Gram Stain Result -- SMEAR RESULTS CALLED TO AND READ BACK BY: Birgitte CARTER 6RDerick @ 6216 12/11/18 CDS RESULT STAPHYLOCOCCUS SPECIES, COAGULASE NEGATIVE RESULT GROWTH IN TWO OF TWO BOTTLES RESULT -- TIME TO DETECTION: 0.69 DAYS RESULT POSSIBLE CONTAMINANT, CLINICAL CORRELATION REQUIRED. RESULT Testing performed at [facility], [address] [place] [address] Comment: Testing performed at [address] [address] Microbiology Results (72 hrs) Procedure Component Value Units Date/Time Culture, Blood [[id number]] Collected: 12/12/18 0502 Order Status: Sent Lab Status: In process Updated: 12/12/18 1005 Specimen: Peripheral Blood Influenza A and B RNA, NAAT [[id number]] Collected: 12/11/18 1556 Order Status: Completed Lab Status: Final result Updated: 12/11/18 1619 Influenza A NEGATIVE Influenza B NEGATIVE Comment: Testing performed by Molecular Methodology Testing performed at [facility];[address] [place] [address] Flu Swab Collection [[id number]] Collected: 12/11/18 1546 Order Status: Completed Lab Status: Final result Updated: 12/11/18 1549 Specimen: Tissue from Nasopharynx Collection SPECIMEN RECEIVED IN LAB Comment: Testing performed at [facility];[address] [place] [address] Culture, Blood [[id number]] Collected: 12/11/18 0615 Order Status: Completed Lab Status: Preliminary result Updated: 12/12/18 1134 Specimen: Peripheral Blood Special Requests RAC Special Requests Testing performed at [facility];[address] [place] [address] RESULT NO GROWTH AT THIS TIME RESULT Testing performed at [facility], [address] [place] [address] Comment: Testing performed at [facility], [address] [place] [address] Culture, Blood [[id number]] (Abnormal) Collected: 12/10/18 2343 Order Status: Completed Lab Status: Final result Updated: 12/13/18 1009 Specimen: Blood from Line Gram Stain Result -- GRAM POSITIVE COCCI IN CLUSTERS SEEN IN AEROBIC BOTTLE SEEN IN ANAEROBIC BOTTLE Gram Stain Result -- SMEAR RESULTS CALLED TO AND READ BACK BY: Brigitte CARTER 6RDerick @ 2141 12/11/18 CDS RESULT STAPHYLOCOCCUS SPECIES, COAGULASE NEGATIVE RESULT GROWTH IN TWO OF TWO BOTTLES RESULT -- TIME TO DETECTION: 0.69 DAYS RESULT POSSIBLE CONTAMINANT, CLINICAL CORRELATION REQUIRED. RESULT Testing performed at [facility], [address] [place] [address] Comment: [place] [address] IMAGING: No new images for review today. [...] was completed later after rounds. Dictation software, Leap, was used which may contain error for [...] Other Pharmacy Consult heparin 400 Units/hr (12/12/18 0815) Vida Whittaker, [facility] - 12/12/2018 1:37 PM PDTClinical [...] e might be different from the original. [facility] Adult Hospitalist Progress Note Hospital Day: [...] Jimenes Ma, MD 8:29 12/12/2018 rost, Taylor Mckeon, [facility] - 1 7:46 PM PDT [...] R?MRN: | | | | | | [id number] | | | [id number] | | | riteri | | | [...] | | | St. | | | [place] | | | y | | | [...] | | | St. | | | [place] | | | y | | | [...] | | | St. | | | [place] | | | y | | | [...] | | | St | | | [place] | | | y | | | [...] St | | | | | | [place] | | | y | | | [...] | | | St. | | | [place] | | | y | | | [...] | | | St. | | | [place] | | | y H. | | [...] | | | St. | | | [place] | | | y H. | | [...] | | | St. | | | [place] | | | y H. | | [...] | | | St. | | | [place] | | | y H. | | [...] | | | St. | | | [place] | | | y H. | | [...] | | | St. | | | [place] | | | y H. | | [...] | | | St. | | | [place] | | | y H. | | [...] | | | MD | | | Copyright Expert | | | al | | | [...] | | | [phone] | | | [id number] | | | 2b | | | [...] + | Billie Gupta MD 12/14/2018 9:54 [facility] | | | [facility] Hemo-Dialysis Procedure note Pt is seen on [...] QB 450 AP | | | -200 Piercer Operator 170 Constitutional: pt appears without distress. [...] | | | | at [facility], [address] | | | | | | [employer], | | | | | | [place] [address] | | | | | |Testing performed at [facility], [address] [facility] [place] [address] | | | | | | | | | | + + +---- + + + + + | Specimen | + + | Blood | + + + + + + + | Performing | Address | City/State/Zipcode | Phone Number | | Organization | | | | + + + + + | [facility] | [address] | [place] [address] | [phone] | + + + + + Basic [...] | | | performed at [facility], [address] | | | | | | [facility], | | | | | | [place] [address] | | | | + + + + + + + + | Specimen | + + | Blood | + + + + + + + | Performing | Address | City/State/Zipcode | Phone Number | | Organization | | | | + + + + + | [facility] | [address] | [place] [address] | [phone] | + + + + + XR [...] | | | | | | [facility] traceable | | | | | | equation.Testing | | | | | | performed at [facility], [address] | | | | | | [facility], | | | | | | [place] [address] | | | | + + + + + + + + | Specimen | + + | Blood | + + + + + + + | Performing | Address | City/State/Zipcode | Phone Number | | Organization | | | | + + + + + | [facility] | [address] | [place] [address] | [phone] | + + + + + [place] [...] 8.6 (H)Comment: Testing | <0.5 mg/dL | [facility] | | | | performed at [facility], [address] | | LABORATORY | | | | [address], | | | | | | [place] [address] | | | | + + + + + + + + | Specimen | + + | Blood | + + + + + + + | Performing | Address | City/State/Zipcode | Phone Number | | Organization | | | | + + + + + | [facility] | [address] | [place] [address] | [phone] | + + + + + Culture, [...] | | LABORATORY | | | | Blvd;[place] [address] | | | | + + + + + + | RESULT | NO GROWTH 6 DAYS | | [facility] | | | | | | LABORATORY | | + + + + + + | RESULT | Testing performed at | | [facility] | | | | [facility], [address] [facility] | | LABORATORY | | | | [address], [place] | | | | | | [id number]: Testing | | | | | | performed at [facility], [address] | | | | | [address], [place], [place] | | | | | | [address] | | | | + + + [...] [facility] | [address] | [place] [address] | [phone] | + + + + + CBC [...] | | | | | [place] [address] | | | | + + + + + + + + | Specimen | + + | Blood | + + + + + + + | Performing | Address | City/State/Zipcode | Phone Number | | Organization | | | | + + + + + | [facility] | [address] | [place] [address] | [phone] | + + + + + Basic [...] | | | performed at [facility], [address] | | | | | | [facility], | | | | | | [place] [address] | | | | + + + + + + + + | Specimen | + + | Blood | + + + + + + + | Performing | Address | City/State/Zipcode | Phone Number | | Organization | | | | + + + + + | [facility] | [address] | [place] [address] | [phone] | + + + + + Basic [...] | 9.4 | 8.5 - 10.5 | [facility] | | | | | mg/dL | LABORATORY | | + + + + + + | Estimated | 9 (L)Comment: GFR <60: | >60 | [facility] | | | GFR | CHRONIC [...] [place];[address] | | | | | | [facility];[place], [place] | | | | | | [address] | | | | + + + + + + + + | Specimen | + + | Blood | + + + + + + + | Performing | Address | City/State/Zipcode | Phone Number | | Organization | | | | + + + + + | [facility] | [address] | [place] [address] | [phone] | + + + + + Influenza [...] B | NEGATIVEComment: Testing | NEG | [facility] | | | | performed by Molecular | | LABORATORY | | | | MethodologyTesting | | | | | | performed at [facility];[address] | | | | | | [address];[place], [place] | | | | | | [address] | | | | + + + + + + + + | Specimen | + + | | + + + + + + + | Performing | Address | City/State/Zipcode | Phone Number | | Organization | | | | + + + + + | [facility] | [address] | [place] [address] | [phone] | + + + + + FLU SWAB COLLECTION (12/11/2018 3:46 PM PDT) + + + + + + | Component | Value | Ref Range | Performed | Pathologist | | | | | At | Signature | + + + + + + | Collection | SPECIMEN RECEIVED IN | | [facility] | | | | LABComment: Testing | | LABORATORY | | | | performed at [facility] | | | | | | [address];[place], [place] | | | | | | [address] | | | | + + + + + + + + | Specimen | + + | Tissue - Entire | | nasopharynx (body | | structure) | + + + + + + + | Performing | Address | City/State/Zipcode | Phone Number | | Organization | | | | + + + + + | [facility] | [address] | [place] [address] | [phone] | + + + + + POC Glucose (12/11/2018 8:31 AM PDT) + + + + + + | Component | Value | Ref Range | Performed | Pathologist | | | | | At | Signature | + + + + + + | Glucose, | 84Comment: Testing | 65 - 99 mg/dL | [facility] | | | POC | performed at [facility];[address] | | LABORATORY | | | | [address];[place], [place] | | | | | | [address] | | | | + + + + + + + + | Specimen | + + | | + + + + + + + | Performing | Address | City/State/Zipcode | Phone Number | | Organization | | | | + + + + + | [facility] | [address] | [place] [address] | [phone] | + + + + + ECG [...] | | | | | ONLY, -COMPUTER (130), | | | | | | restaurant expeditor Daniela Luciano | | | | | [...] MISHEL | | | | performed at [facility];[address] | | LABORATORY | | | | [address];[place] | | | | | | [address] | | | | + + + + + + + + | Specimen | + + | Blood | + + + + + + + | Performing | Address | City/State/Zipcode | Phone Number | | Organization | | | | + + + + + | [facility] | [address] | [place] [address] | [phone] | + + + + + Basic [...] LABORATORY | | | | [place] ON [phone] BY | | | | | | [...] | | | | | | [facility] traceable | | | | | | equation.Testing | | | | | | performed at [facility];[address] | | | | | | [facility];[place], [place] | | | | | | [address] | | | | + + + + + + + + | Specimen | + + | Blood | + + + + + + + | Performing | Address | City/State/Zipcode | Phone Number | | Organization | | | | + + + + + | [facility] | [address] [facility] | [place] [address] | [phone] | + + + + + Culture, [...] | [facility] | | | Requests | [facility];[address] [place] [address] | | LABORATORY | | | | Blvd;[place] [address] | | | | + + + + + + | RESULT | NO GROWTH 6 DAYS | | [facility] | | | | | | LABORATORY | | + + + + + + | RESULT | Testing performed at | | [facility] | | | | [facility], [address] | | LABORATORY | | | | [place] | | | | | | [address]Hjqdysn: Testing | | | | | | performed at [facility], [address] | | | | | [address] [place], [place] | | | | | | [address] | | | | + + + + + + + + | Specimen | + + | Blood - Peripheral | | blood specimen | | (specimen) | + + + + + + + | Performing | Address | City/State/Zipcode | Phone Number | | Organization | | | | + + + + + | [facility] | [address] | [place] [address] | [phone] | + + + + + CT [...] | | | | | | [address];[place], [place] | | | | | | [address] | | | | + + + + + + + + | Specimen | + + | | + + + + + + + | Performing | Address | City/State/Zipcode | Phone Number | | Organization | | | | + + + + + | [facility] | [address] | [place] [address] | [phone] | + + + + + Lactic Acid (12/11/2018 1:04 AM PDT) + + + + + + | Component | Value | Ref Range | Performed | Pathologist | | | | | At | Signature | + + + + + + | Lactate, | 1.2Comment: Testing | 0.4 - 2.0 | [facility] | | | Serum | performed at [facility];[address] | mmol/L | LABORATORY | | | | [address];[place], [place] | | | | | | [address] | | | | + + + + + + + + | Specimen | + + | Blood | + + + + + + + | Performing | Address | City/State/Zipcode | Phone Number | | Organization | | | | + + + + + | [facility] | [address] | [place] [address] | [phone] | + + + + + Lactic Acid (12/10/2018 11:44 PM PDT) + + + + + + | Component | Value | Ref Range | Performed | Pathologist | | | | | At | Signature | + + + + + + | Lactate, | 0.8Comment: Testing | 0.4 - 2.0 | [facility] | | | Serum | performed at [facility];[address] | mmol/L | LABORATORY | | | | [address];[place] | | | | | | [address] | | | | + + + + + + + + | Specimen | + + | Blood | + + + + + + + | Performing | Address | City/State/Zipcode | Phone Number | | Organization | | | | + + + + + | [facility] | [address] | [place] [address] | [phone] | + + + + + Culture, [...] | | | | BY:Brigitte CARTER @ [id number] | | | | | | 12/11/18 [...] | | [facility] | | | | [facility], [address] ([place], [place]) | | LABORATORY | | | | [place] | | | | | | [id number]: Testing | | | | | | performed at [facility], [address] | | | | | | [address], | | | | | | [place] [address] | | | | + + + + + + + + | Specimen | + + | Blood - Swab of line | | insertion site | | (specimen) | + + + + + + + | Performing | Address | City/State/Zipcode | Phone Number | | Organization | | | | + + + + + | [facility] | [address] | [place] [address] | [phone] | + + + + + XR [...] (H)Comment: 0.04 | 0.00 - 0.04 | [facility] | | | | ng/mL or [...] | [facility];[address];[place] [address] | | | | + + + + + + + + | Specimen | + + | Blood | + + + + + + + | Performing | Address | City/State/Zipcode | Phone Number | | Organization | | | | + + + + + | [facility] | [address] | [place] [address] | [phone] | + + + + + [place] [...] [place];[address] | | | | | | [address] [facility];[place], [place] | | | | | | [address] | | | | + + + + + + + + | Specimen | + + | Blood | + + + + + + + | Performing | Address | City/State/Zipcode | Phone Number | | Organization | | | | + + + + + | [facility] | [address] | [place] [address] | [phone] | + + + + + CBC [...] | | | | | | at [facility];[address];[place] [address] | | | | | |NORMAL PLT MORPH | | | | | |Testing performed at [facility];[address] [facility];[place] [address] | | | | | | | | | | + + + + + + + + | Specimen | + + | Blood | + + + + + + + | Performing | Address | City/State/Zipcode | Phone Number | | Organization | | | | + + + + + | [facility] | [address] | [place] [address] | [phone] | + + + + + Phosphorus (12/10/2018 11:02 PM PDT) + + + + + + | Component | Value | Ref Range | Performed | Pathologist | | | | | At | Signature | + + + + + + | Phosphorus | 8.9 (H)Comment: Testing | 2.3 - 4.8 mg/dL | ANDREY | | | | performed at [facility];[address] | | LABORATORY | | | | [address];[place], [place] | | | | | | [address] | | | | + + + + + + + + | Specimen | + + | Blood | + + + + + + + | Performing | Address | City/State/Zipcode | Phone Number | | Organization | | | | + + + + + | [facility] | [address] [facility] | [place] [address] | [phone] | + + + + + Magnesium (12/10/2018 11:02 PM PDT) + + + + + + | Component | Value | Ref Range | Performed | Pathologist | | | | | At | Signature | + + + + + + | Magnesium | 2.2Comment: Testing | 1.7 - 2.4 mg/dL | [facility] | | | | performed at [facility];[address] | | LABORATORY | | | | [address];[place], [place] | | | | | | [address] | | | | + + + + + + + + | Specimen | + + | Blood | + + + + + + + | Performing | Address | City/State/Zipcode | Phone Number | | Organization | | | | + + + + + | [facility] | [address] | [place] [address] | [phone] | + + + + + Comprehensive [...] (L)Comment: GFR <60: | >60 | [facility] | | | GFR | CHRONIC [...] at [facility] | | | | | | [facility];[place], [place] | | | | | | [address] | | | | + + + + + + + + | Specimen | + + | Blood | + + + + + + + | Performing | Address | City/State/Zipcode | Phone Number | | Organization | | | | + + + + + | [facility] | [address] | [place] [address] | [phone] | + + + + + ECG [...] (500), | | | | | | restaurant expeditor Daniela Luciano | | | | | [...] - PRN, Hypotension, | | | Starting [facility] 12/11/18 at 0937, | | | [...] - PRN, Hypotension, | | | Starting [facility] 12/12/18 at 0734, | | | [...]
--- OUTSIDE RECORDS SUMMARY | ~2019-07-14 | XMS | Encounter Summary ---
Demographics + + + | Address | [address] | | | [place] [address] | + + + | Home Phone [...] | | | | | [place] [address] | | + + + + + | Thania Mallory | ECON | [address] | | | | | [place] [address] | | + + + + + | Deidra Weldon | ECON | [address] | | | | | [place] | | | | | [address] | | + + + + + Care Team Providers + +------+ + | Care Senior Product Development Scientist Name | Role | Phone | [...] | | | [address] | [place] | | | | | [place], | [place], [place] | | | | | [place] [address] | [address] | | | | | [phone] | [phone] | | | | | | | [...] Denise | | | | | | [place], [place] | | | | | | [address] | | | | | | [phone] | | | | | | | | +--------+ + + + + documented as of this encounter Visit Diagnoses Not on filedocumented in this encounter"
--- OUTSIDE RECORDS SUMMARY | ~2019-07-14 | XMS | Encounter Summary ---
Demographics + + + | Address | [address] | | | [place] [address] | + + + | Home Phone [...] + | Author | [facility] | | | and Josephana | + + + | Organization | [facility] | | | and [...] Providers + +------+ + | Care Broadcast Chief Engineer Name | Role | Phone | [...] + + | 11/15/ | Telephone | [facility] | George Torres RN | Lab Results | | 2019 | | [address] | | (Cytology report) | | | | [place] | | | | | | [address] | | | | | | [phone] | | | +--------+ + + + [...]
--- OUTSIDE RECORDS SUMMARY | ~2019-07-14 | XMS | Encounter Summary ---
Demographics + + + | Address | [address] | | | [place] [address] | + + + | Home Phone [...] + | Author | [facility] | | | and Josephana | + + + | Organization | [facility] | [...] Providers + +------+ + | Care Cable Television Program Director Name | Role | Phone [...] NEPHROLOGY [address] | MD [address] | (Asymptomatic) | | | | [address] | [address] [place] | | | | | [place], [place] | [place] [address] | | | | | [address] | [phone] | | | | | [phone] | | | +--------+ + + + [...] 3:01 PM PDTHemodialysis progress note e-faxed to [facility] [place], Lianna Joy MD, [facility] on 11/29/13.Electronical ly signed by Marilyn Palumbo at 11/29/2013 3:02 PM Daniela Marquez MD - 11/22/2013 11 :03 AM PDT Comprehensive Dialysis Monthly Note Date of visit: 11/22/2013 Dialysis Clinic: [facility] Mode [...] 2012. Access: R chest catheter. Re-referred to [facility] transplant in Oct 2013 by pediatric social worker. Peritonitis, dialysis-associated (HCC) 07/29/2013 Note Last Updated: 07/29/2013 Due to MSSA. Had tunneled infection as well. PD catheter removed in July 2013. On Keflex till 08/01/13. History of Henoch-Schonlein purpura Note Last Updated: 07/29/2013 Diagnosed at age 10[address] Joy, pediatric social worker. Anemia in ESRD (end-stage renal disease) (HCC) [...] had any infectious complication to date. -per [facility] transplant, AVF is not recommended at [...] living donor. Pt has been referred to [facility] in Oct [address] Joy. -followed up [facility]ianna Joy, [facility] Pediatric Nephrology [facility] Renal transplant documented in this encounter [...]
--- OUTSIDE RECORDS SUMMARY | ~2019-07-14 | XMS | Encounter Summary ---
Demographics + + + | Address | [address] | | | [place] [address] | + + + | Home Phone [...] | | | | | [place] [address] | | + + + + + | Thania Mallory | ECON | [address] | | | | | [place] [address] | | + + + + + | Deidra Weldon | ECON | [address] | | | | | [place] | | | | | [address] | | + + + + + Care Team Providers + +------+ + | Care Knotter Name | Role | Phone | + [...] | | [address] | [facility] | | | | | [address] [place], | [place], [place] | | | | | [place] [address] | [address] | | | | | [phone] | | | +--------+ + + + [...] Denise | | | | | | [place], [place] | | | | | | [address] | | | | | | [phone] | | | | | | | [...] + + | [facility] | [address] | [place] | [phone] | | [place] | | | | + + + + + documented in this encounter Visit Diagnoses Not on filedocumented in this encounter"
--- OUTSIDE RECORDS SUMMARY | ~2019-07-14 | XMS | Encounter Summary ---
Demographics + + + | Address | [address] | | | [place] [address] | + + + | Home Phone [...] | | | | | [place] [address] | | + + + + + | Thania Mallory | ECON | [address] | | | | | [place] [address] | | + + + + + | Deidra Weldon | ECON | [address] | | | | | [place] | | | | | [address] | | + + + + + Care Team Providers + +------+ + | Care Reel Assembler Name | Role | Phone | [...] | | | [address] | [facility] | | | | | [place], | [place], [place] | | | | | [place] [address] | [address] | | | | | [phone] | [phone] | | | | | | | [...] Denise | | | | | | [place] | | | | | | [address] | | | | | | [phone] | | | | | | | | +--------+ + + + + documented as of this encounter Visit Diagnoses Not on filedocumented in this encounter"
--- OUTSIDE RECORDS SUMMARY | ~2019-07-14 | XMS | Encounter Summary ---
Demographics + + + | Address | [address] | | | [place] [address] | + + + | Home Phone [...] | | | | | [place] [address] | | + + + + + | Thania Mallory | ECON | [address] | | | | | [place] [address] | | + + + + + | Deidra Weldon | ECON | [address] | | | | | [place] | | | | | [address] | | + + + + + Care Team Providers + +------+ + | Care Florist Supplies Salesperson Name | Role | Phone | [...] Shun | | | | | at [facility] | [facility] | | | | | [address] | [place] [address] | | | | | [address] [facility] | | | | | | [place] floor | | | | | | [place], [place] | | | | | | [address] | | | | | | [phone] | | | +--------+ + + + [...] Camelia | | | | | | [place], [place] | | | | | | [address] | | | | | | [phone] | | | | | | | [...] | e | 11:49 AM | MEDICARE [id number] | procedure are in the | | [...] view image for the detailed interpretation from [facility] results. | CARDIOLOGY | + + + + + | Procedure Note | + + | Interface, Cardiology Results - 12/21/2012 9:38 AM PDT Please click on view image | | for the detailed interpretation from [facility] results. 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
--- OUTSIDE RECORDS SUMMARY | ~2019-07-14 | XMS | Encounter Summary ---
Demographics + + + | Address | [address] | | | [place] [address] | + + + | Home Phone [...] | Author | [facility] | | | and Josephana | + + + | Organization | [facility] | | | [...] Team Providers + +------+ + | Care Rehabilitation Coordinator Name | Role | Phone | + +------+ + | Tien Nicholson MD | PCP | | + +------+ + Encounter Details +--------+ + + + + | Date | Type | Department | Care Team | Description | +--------+ + + + + | 10/17/ | Hospital | [facility] | Nikita, | SOB (shortness of | | 2019 - | Encounter | [facility] | MD [address] | breath); Pleural | | | | CARE FLOOR [address] | [address] | effusion on right; | | 10/20/ | | [address] | [place] [address] | ESRD needing | | 2019 | | [place], [place] | [phone] | dialysis ([facility]); End | | | | [address] | | stage renal disease | | | | [phone] | | (HCC) | +--------+ + + [...] + + +---------+ + + | B Rdjovun-W-Ludbd | Take 1 tablet by | | [...] 10/19/182357 Date of Service: 10/19/182357 Status: Signed Direct Entry Midwife: Vira Liliana, RN (Registered Nurse) No acute changes from [...] 10/19/181827 Date of Service: 10/19/181826 Status: Signed Direct Entry Midwife: Trent Jovel RN (Registered Nurse) Dialysis completed today 2.4L removed. Remains on fluid restriction. Medicated for pain x 2. End of shift review complete. Trent Jovel RN onver arturo Transaction, Provider Unknown - 10/19/2018 3:36 PM PDT Case Management by DORON Diallo at 10/19/18 1536 Author: DORON Diallo Service: (none) Author Type: Diecast Machine Operator Filed: 10/19/18 1537 Date of Service: 10/19/181535 Status: Signed Direct Entry Midwife: DORON Diallo (Diecast Machine Operator) Discharge planning: Return home when medically ready [...] Service: Nephrology Author Type: Physician Filed: 10/25/18 0587 Date of Service: 10/19/18 1214 Status: Addendum Direct Entry Midwife: Antonio Pabon MD (Physician) Related Notes: Original Note by Antonio Pabon MD (Physician) filed at 10/25/18 3534 [facility] Service: NEPHROLOGY Progress Note Dara Weldon 23 y.o. [id number] female TIEN NICHOLSON 23-year-old female with [...] Simon MD; Location: [facility] MAIN OR; Service: Vascula r; Laterality: Left; cephalic AV FISTULA REPAIR Left 03/07/2014 Procedure: AV FISTULA - GRAFT REPAIR/REVISION; Surgeon: Rik Simon MD; Location: [facility] IN OR; Service: Vascular; Laterality: Left; DECLOT GRAFT Left 03/07/2014 Procedure: GRAFT - DECLOT; Surgeon: Rik Simon MD; Location: [facility] MAIN OR; Service: Vas cular; Laterality: Left; DIALYSIS FISTULA CREATION N/A 04/08/2014 Procedure: DIALYSIS CATHETER - INSERTION; Surgeon: Rik Simon MD; Location: [facility] MAIN OR ; Service: Vascular; Laterality: N/A; tunneled catheter LAPAROSCOPIC PERITONEAL DIALYSIS CATHETER INSERTION x2 LAPAROSCOPIC PERITONEAL DIALYSIS CATHETER INSERTION Right 07/2013 current dialysis access MWF dialysis RENAL BIOPSY Left 2003 SUPERFICIALIZATION OF AV FISTULA Left 06/24/2014 Procedure: AV FISTULA - SUPERFICIALIZATION; Surgeon: Rik Simon MD; Location: [facility] MAIN OR; Service: Vascular; Laterality: Left; No [...] file Social History Narrative She lives in [facility]. She does not work. She has 1 [...] ral space is punctured with an 5 Haitian [employer] centesis catheter. Fluid is aspirated without complication. [...] 1 VIEW (10/17/2018); CHEST TWO V IEWS 20821 (10/17/2018); FINDINGS: Compared to the prior examination [...] MR, severe TR.severe pulmonary hypertens ion Chest w-zve-dwmixdnfcqya with pulmonary edema and large right pleural [...] earlier and charting completed later Dictation software, Luxoft, used which may contain error for similar sounding words even af ter review. Personal communication requested for any clarification. Gerber Fernandez MD - 10/19/2018 7:48 AM PDT Progress Notes by Gerber Pearson MD at 10/19/18 0748 Author: Gerber Pearson MD Service: Hospitalist Author Type: Physician Filed: 10/19/18 0753 Date of Service: 10/19/1848 Status: Signed Direct Entry Midwife: Gerber Pearson MD (Physician) [facility] Service: Hospitalist Progress Note Hospital Day: LOS: [...] with dyspnea Patient was recently discharged from [facility] on 08/23/2018. For full note, please see ketan agudelo summary from hospitalist. In summary, the patient was admitted for noncardiogenic pulmo nary edema after thoracentesis. At that point, prior to admission, she was seen at the [facility] at [facility] in [place] on 08/21 where she underwent right th [...] BUN 90 on admission -History of a [place] Schnlein purpura -Last hemodialysis approximately 2 weeks [...] 10/19/18733 Date of Service: 10/19/18733 Status: Signed Direct Entry Midwife: Vira Ford RN (Registered Nurse) No acute changes from shift assessment. VSS. Pt medicated for pain as requested and availab le. End of shift review and 24 hour chart check complete. onver arturo Transaction, Provider Unknown - 10/18/2018 5:01 PM PDT Case Management by DORON Diallo at 10/18/181700 Author: DORON Diallo Service: (none) Author Type: Diecast Machine Operator Filed: 10/18/181706 Date of Service: 10/18/181700 Status: Signed Direct Entry Midwife: DORON Diallo (Diecast Machine Operator) Discharge planning: Return home when medically ready for discharge. Gerber Fernandez MD - 10/18/2018 7:46 AM PDT Progress Notes by Gerber Pearson MD at 10/18/18745 Author: Gerber Pearson MD Service: Hospitalist Author Type: Physician Filed: 10/18/18 075 Date of Service: 10/18/18745 Status: Signed Direct Entry Midwife: Gerber Pearson MD (Physician) [facility] Service: Hospitalist Progress Note Hospital Day: LOS: [...] with dyspnea Patient was recently discharged from [facility] on 08/23/2018. For full note, please see discha marilne summary from hospitalist. In summary, the patient was admitted for noncardiogenic pulmo nary edema after thoracentesis. At that point, prior to admission, she was seen at the [facility] department at [facility] in [place] on 08/21 where she underwent right th [...] BUN 90 on admission -History of a [place] Schnlein purpura -Last hemodialysis approximately 2 weeks [...] 10/25/182002 Date of Service: 10/18/18744 Status: Signed Direct Entry Midwife: Antonio Pabon MD (Physician) [facility] Service: NEPHROLOGY Progress Note Dara Weldon 23 y.o. [id number] female [facility] Day: LOS: 1 day 23-year-old [...] Simon MD; Location: [facility] MAIN OR; Service: Vascula r; Laterality: Left; cephalic AV FISTULA REPAIR Left 03/07/2014 Procedure: AV FISTULA - GRAFT REPAIR/REVISION; Surgeon: Rik Simon MD; Location: [facility] IN OR; Service: Vascular; Laterality: Left; DECLOT GRAFT Left 03/07/2014 Procedure: GRAFT - DECLOT; Surgeon: Rik Simon MD; Location: [facility] MA[facility] OR; Service: Vas cular; Laterality: Left; DIALYSIS FISTULA CREATION N/A 04/08/2014 Procedure: DIALYSIS CATHETER - INSERTION; Surgeon: Rik Simon MD; Location: [facility] MAIN OR ; Service: Vascular; Laterality: N/A; tunneled catheter LAPAROSCOPIC PERITONEAL DIALYSIS CATHETER INSERTION x2 LAPAROSCOPIC PERITONEAL DIALYSIS CATHETER INSERTION Right 07/2013 current dialysis access MWF dialysis RENAL BIOPSY Left 2003 SUPERFICIALIZATION OF AV FISTULA Left 06/24/2014 Procedure: AV FISTULA - SUPERFICIALIZATION; Surgeon: Rik Simon MD; Location: [facility] MAIN OR; Service: Vascular; Laterality: [...] file Social History Narrative She lives in [facility]. She does not work. She has 1 [...] QTC Calculation (Bezet) 469 ms Calculated P [place] 46 degrees Calculated R [place] 127 degrees Calculated T [place] 94 degrees Diagnosis Normal sinus rhythm Right [...] MR, severe TR.severe pulmonary hypertens ion Chest c-sat-eijfuqhlsfrq with pulmonary edema and large right pleural [...] earlier and charting completed later Dictation software, Luxoft, used which may contain error for similar [...] 10/18/1853 Date of Service: 10/18/18650 Status: Signed Direct Entry Midwife: Ronnie Vargas RN (Registered Nurse) Pt alert and oriented X 4. PRN pain med given for back pain. No other acute changes durin g shift. Chart check complete onver arturo Transaction, Provider Unknown - 10/17/2018 9:48 AM PDT Case Management by DORON Diallo at 10/17/18 0948 Author: DORON Diallo Service: (none) Author Type: Diecast Machine Operator Filed: 10/17/1854 Date of Service: 10/17/18947 Status: Signed Direct Entry Midwife: DORON Diallo (Diecast Machine Operator) 10/17/18 09 Discharge Planning Evaluation Admitting Diagnosis (SOB) Readmission Other (comment) (Last admit 08/20/18) Living Arrangements Alone Support Systems Family members;Friends/neighbors Type of Residence Private residence House type Apartment Independent with ADL's Yes Independent with Mobility Yes Home Care Services No Caregiver after Discharge No Mental Status Oriented Prior functional status (Independent) Power of Consulting Practice Manager No Resources Financial concerns No Transportation issues No Patient/Family concerns No Prescription Plan Yes Name of Pharmacy ([facility] in [place]) Previous home health equipment No Anticipated Disposition Facility Type Home DORON CM met with pt and discussed discharge planning. Pt is a 23 y.o., female admitted for s hortness of breath. Pt resides alone in an apartment at [address], [address] [facility] [address], [place] [address]. Pt reported that she has neighbor and friend support. Pt's mother, Thania cheung can be reached at and sister, Saundra can be reached at . Pt reported being independent with ADL's,, IADL's and mobility prior to this admission. Pt denied previous outpatient OT/PT services, home care services and home O2 prior to this admission. Pt reported that she received dialysis from [facility] on MWF prior to this admission . [...] 10/17/18743 Date of Service: 10/17/18743 Status: Signed Direct Entry Midwife: Camilla Moody RPH (Pharmacist) Clinical Pharmacy Note: [...] MD Service: Hospitalist Author Type: Physician Filed: 10/17/1847 Date of Service: 10/17/18716 Status: Signed Direct Entry Midwife: Gerber Pearson MD (Physician) [facility] Service: Hospitalist Progress Note Hospital Day: LOS: [...] with dyspnea Patient was recently discharged from [facility] on 08/23/2018. For full note, please see discha rge summary from hospitalist. In summary, the patient was admitted for noncardiogenic pulmo nary edema after thoracentesis. At that point, prior to admission, she was seen at the [facility] manuel gency department at [facility] in [place] on 08/21 where she underwent right th [...] the case over the phone with patient's geometry teacher Dr. Mahmood, recommends medi oly management and [...] creatinine 14, BUN 90 -History of a [place] Schnlein purpura -Last hemodialysis approximately 2 weeks [...] | | | | performed at [facility], [address] | | | | | [address], | | | | | | [place] [address] | | | | + + + [...] CHEST 1 VIEW (10/17/2018); CHEST TWO VIEWS 30908 | | | (10/17/2018); FINDINGS: Compared to [...] VIEW | | (10/17/2018); CHEST TWO VIEWS 44416 (10/17/2018); | | FINDINGS: | | Compared [...] CHF pattern | | Signed by: Eliza Coy, Van | | Sign Date/Time: 10/18/2018 6:05 PM [...] by: Liset | | | Colten Kay Sign Date/Time: 10/18/2018 5:29 PM The radiologist [...] pleural space is punctured with an 5 Haitian [employer] centesis catheter. | | | Fluid is aspirated [...] pleural space is punctured with an 5 Haitian [employer]h | | centesis catheter. Fluid is [...] + + + | Red Blood | 3.24 (L) | 3.7 0 - [...] [address]vd, | | | | | | [place] [address] | | | | | |Testing performed at [facility], [address] [place] [address] | | | | | | | [...] EXTERNAL | | | | performed at [facility], [address] | | LAB | | | | [address], | | | | | | [place] [address] | | | | + + + [...] | | | | performed at [facility], [address] | | | | | | [address], | | | | | | [place] [address] | | | | + + + [...] at | | | | | | [facility];[address] | | | | | | Blvd;[place] [address] | | | | + + + [...] | LAB | | | | [address];[place], [place] | | | | | | [address] | | | | + + + [...] at | | | | | | [facility];[address] | | | | | | Blvd;[place] [address] | | | | + + + [...] | LAB | | | | [address];[place], [place] | | | | | | [address] | | | | + + + + + + + + | Specimen | + + | Blood specimen | | (specimen) | + + + +---------+ + + | Performing | Address | City/State/Zipcode | Phone Number | | Organization | | | | + +---------+ + + | EXTERNAL LAB | | | | + +---------+ + + Elizabethime INR (10/17/2018 8:10 AM PDT) + + [...] | | performed at [facility] | | | | | | [address];[place], [place] | | | | | | [address] | | | | + + + [...] + + + | Red Blood | 3.07 (L) | 3.70 - 5.10 [...] at | | | | | | [facility];[address] | | | | [address];[place] [address] | | | | + + + [...] at | | | | | | [facility];[address] | | | | | | [facility];[place] [address] | | | | + + + [...] [address] | | | | | | [address];[place] [address] | | | | + + + [...]
--- OUTSIDE RECORDS SUMMARY | ~2019-07-14 | XMS | Encounter Summary ---
Demographics + + + | Address | [address] | | | [place] [address] | + + + | Home Phone [...] | | | | | [place] [address] | | + + + + + | Thania Mallory | ECON | [address] | | | | | [place] [address] | | + + + + + | Deidra Weldon | ECON | [address] | | | | | [place] | | | | | [address] | | + + + + + Care Team Providers + +------+ + | Care Final Inspection Supervisor Name | Role | Phone | + +------+ + | Shahid Camargo MD | PCP | | + +------+ + Reason for Visit +--------+ + | Reason | Comments | +--------+ + | Other | Requested [id number] | +--------+ + Encounter Details +--------+ + + + + | Date | Type | Department | Care Team | Description | +--------+ + + + + | 11/15/ | Telephone | Clinical | Jesus Edmond, | Other (Requested | | 2012 | | Transplant Services | [address] | [id number]) | | | | [address] | [facility] | | | | | [address] [place], | [place], [place] | | | | | [place] [address] | [address] | | | | | [phone] | [phone] | | | | | | | [...] Denise | | | | | | [place] | | | | | | [address] | | | | | | [phone] | | | | | | | | +--------+ + + + + documented as of this encounter Visit Diagnoses Not on filedocumented in this encounter"
--- OUTSIDE RECORDS SUMMARY | ~2019-07-14 | XMS | Encounter Summary ---
Demographics + + + | Address | [address] | | | [place] [address] | + + + | Home Phone [...] | Author | [facility] | | | and Josephana | + + + | Organization | [facility] | | | and [...] Team Providers + +------+ + | Care Pole Framer Machine Name | Role | Phone | [...] [address] | M, DO [address] | | | | | [address] | [place] | | | | | [place], [place] | [place], [place] | | | | | [address] | [address] | | | | | [phone] | | | +--------+ + + + [...] of contact with the dialysis staff in nurse clinical on a frequent basis. Outpatient Prescriptions [...] will be rechecked in 2 weeks. : Edwards Fina documented in thi s encounter Plan of Treatment Not on filedocumented as of this encounter Visit Diagnoses + + | Diagnosis | + + | ESRD (end stage renal disease) (HCC) - Primary End stage renal disease | + + documented in this encounter"
--- OUTSIDE RECORDS SUMMARY | ~2019-07-14 | XMS | Encounter Summary ---
Demographics + + + | Address | [address] | | | [place] [address] | + + + | Home Phone [...] | Author | [facility] | | | and Josephana | + + + | Organization | [facility] | | [...] Team Providers + +------+ + | Care Grades 1 Thru 6 Visiting Teacher Name | Role | Phone | + +------+ + | Jonathan Alonso MD | PCP | | + +------+ + Encounter Details +--------+ + + + + | Date | Type | Department | Care Team | Description | +--------+ + + + + | 10/08/ | Orders Only | [facility] | Provider, | Systolic congestive | | 2019 | | SYSTEM GENERIC OP | [address] | heart failure (HCC) | | | | CONVERSION [address] | [place]. | | | | | [address] [place], [place] | [place] [address] | | | | | [address] | | | | | | [phone] | | | +--------+ + + + [...]
--- OUTSIDE RECORDS SUMMARY | ~2019-07-14 | XMS | Encounter Summary ---
Demographics + + + | Address | [address] | | | [place] [address] | + + + | Home Phone [...] | | | | | [place] [address] | | + + + + + | Thania Mallory | ECON | [address] | | | | | [place] [address] | | + + + + + | Deidra Weldon | ECON | [address] | | | | | [place] | | | | | [address] | | + + + + + Care Team Providers + +------+ + | Care Astronautical Engineer Name | Role | Phone | [...] | | [address] | [facility] | | | | | [address] [facility], | [place], [place] | | | | | [place] [address] | [address] | | | | | [phone] | | | +--------+ + + + [...] Denise | | | | | | [place] | | | | | | [address] | | | | | | [phone] | | | | | | | | +--------+ + + + + documented as of this encounter Visit Diagnoses Not on filedocumented in this encounter"
--- OUTSIDE RECORDS SUMMARY | ~2019-07-14 | XMS | Encounter Summary ---
Demographics + + + | Address | [address] | | | [place] [address] | + + + | Home Phone [...] | | | | | [place] [address] | | + + + + + | Thania Mallory | ECON | [address] | | | | | [place] [address] | | + + + + + | Deidra Louise | ECON | [address] | | | | | [place] | | | | | [address] | | + + + + + Care Team Providers + +------+ + | Care Senior Clinical Sas Programmer Name | Role | Phone | [...] | | | | (HCC) [facility] | [place] | [place] | | | | | ([address] | [address] | [address] | | | | | nlein | [place], [place] | Children's | | | | | purpura) | [address] | [address] | | | | | nephritis | Phone: | Floor | | | | | (HCC) | [phone] | [place], [place] | | | | | Hemodialysis | Fax: | [address] | | | | | status | [phone] | Phone: | | | | | (HCC) | | [phone] | | | | | Chronic | | Fax: | | | | | kidney | | [phone] | | | | | disease, | | | | | | | stage V | | | | | | | ([facility]) | | | | | [...] | | | [address] | [facility] | | | | | [address] [place], | [place], [place] | | | | | [place] [address] | [address] | | | | | [phone] | | | +--------+ + + + [...] | | | | | | [place], [place] | | | | | | [address] | | | | | | [phone] | | | | | | | [...] | | | ([facility]) Chronic | | | | | | kidney disease, | | | | | | stage V ([facility]) | | + +------+--------+ + [...] the | | | | PST | (HenjenniferSchernestoleiksenia | results section. | | | | [...] BSA | | | | | | (SEBASTOPOL Z | | | | | | [...] Interface, Cardiology Results - 01/20/2015 2:35 PM [facility] Echocardiography Laboratory | | [address] | | [place] [address] | | ; | | [id number] | | | | Transthoracic Echocardiogram Report | | | | | | NAME: DARA LOUISE Study Date: 01/20/2015 1:18:29 PM | | Order #: [id number] ACC #: [id number] | | | | | | : [...] on 01/20/2015 at 2:35:17 PM | | Resident Intern: YARITZA KLINE RD | | | | | | cc: | | | | | | Modes utilized | | TTE 05230; Spectral Doppler 31367; Color flow Doppler 21629; | | | | | | | | Final | + + + + + + + | Performing | Address | City/State/Zipcode | Phone Number | | Organization | | | | + + + + + | [facility] | [address] | [place], [place] | | | CARDIOLOGY | [address] | [address] | | + + + + + [...] | + + + + + | [facility] | [address] | [place] [address] | | | SERVICES, SPECIAL | [address] [...] + + + | [facility] | [address] | [place] [address] | | | DIAGNOSTIC | [address] [...] | | QUAL, SERUM | | | [place] | | + + + + + + + + | Specimen | + + | Blood - Blood | + + + + + + + | Performing | Address | City/State/Zipcode | Phone Number | | Organization | | | | + + + + + | [facility] | [address] | [place] [address] | | | [place] | | | | + + + [...] + | [facility] | [address] | [place] [address] | | | [place] | | | [...] + | [facility] | [address] | [place] [address] | | | [place] | | | [...] + | [facility] | [address] | [place] [address] | | | [facility] | | | | + + + [...] by | | | | | | [employer] | | | | | | [address], [facility],[place] | | | | | | [address] | | | | | | [phone].[employer]. | | | | | | Faisal [...] [facility] | [address] | [place], [place] | | | [facility] | | [address] | | + + + + + [...] + | [facility] | [address] | [place] [address] | | | [place] | | | | + + + [...] by | | | | | | [employer] | | | | | | [address], [facility],[place] | | | | | | [address] | | | | | | [phone][employer]. | | | | | | Faisal [...] [facility] | [address] | [place], [place] | | | [facility] | | [address] | | + + + + + [...] [facility] | [address] | [place] [address] | | | SERVICES, CORE | PARK [...] [facility] | [address] | [place] [address] | | | RIKY, HOMERO | LONG [...] [facility] | [address] | [place] [address] | | | SERVICES, HOMERO | PARK [...] | + + + + + | [facility] | [address] | [place] [address] | | | SERVICES, CORE | LONG [...] [facility] | [address] | [place] [address] | | | SERVICES, CORE | PARK [...] | | | LABORATORY | | | [place] | | | SERVICES, | | | [...] the MDRD equation recommended by the | [facility] | | National Kidney Disease Education Program. Estimated GFR | LABORATORY | | Interpretive Information: <60 mL/min/1.73 sq m | [facility] | | Chronic Kidney Disease <15 mL/min/1.73 [...] | + + + + + | [facility] | [address] | [place] [address] | | | [facility] | LONG [...]
--- OUTSIDE RECORDS SUMMARY | ~2019-07-14 | XMS | Encounter Summary ---
Demographics + + + | Address | [address] | | | [place] [address] | + + + | Home Phone [...] | | | | | [place] [address] | | + + + + + | Thania Mallory | ECON | [address] | | | | | [place] | | + + + + + | Deidra Weldon | ECON | [address] | | | | | [place] | | | | | [address] | | + + + + + Care Team Providers + +------+ + | Care Cardiac Specialist Name | Role | Phone | [...] | | | | [address] | [facility] | | | | | [address] [facility], | [place], [place] | | | | | [place] [address] | [address] | | | | | [phone] | | | +--------+ + + + [...] Denise | | | | | | [place] | | | | | | [address] | | | | | | [phone] | | | | | | | | +--------+ + + + + documented as of this encounter Visit Diagnoses Not on filedocumented in this encounter"
--- OUTSIDE RECORDS SUMMARY | ~2019-07-14 | XMS | Encounter Summary ---
Demographics + + + | Address | [address] | | | [place] [address] | + + + | Home Phone [...] | | | | | [place] [address] | | + + + + + | Thania Mallory | ECON | [address] | | | | | [place] [address] | | + + + + + | Deidra Weldon | ECON | [address] | | | | | [place] | | | | | [address] | | + + + + + Care Team Providers + +------+ + | Care Door Repairman Name | Role | Phone | + [...] - | | | | Caro Chan [place], | [place], [place] | psychosocial | | | | [place] [address] | [address] | readiness update) | | | | [phone] | | | +--------+ + + + [...] Denise | | | | | | [place], [place] | | | | | | [address] | | | | | | [phone] | | | | | | | | +--------+ + + + + documented as of this encounter Visit Diagnoses Not on filedocumented in this encounter"
--- OUTSIDE RECORDS SUMMARY | ~2019-07-14 | XMS | Encounter Summary ---
Demographics + + + | Address | [address] | | | [place] [address] | + + + | Home Phone [...] | Author | [facility] | | | and [place] | + + + | Organization | [facility] | [...] Providers + +------+ + | Care Senior Staff Specialized Employment Name | Role | Phone | + [...] NEPHROLOGY [address] | M, DO [address] | | | | | [address] | [address] | | | | | [place], [place] | [place], [place] | | | | | [address] | [address] | | | | | [phone] | | | +--------+ + + + [...]
--- OUTSIDE RECORDS SUMMARY | ~2019-07-14 | XMS | Encounter Summary ---
Demographics + + + | Address | [address] | | | [place] [address] | + + + | Home Phone [...] | | | | | [place] [address] | | + + + + + | Thania Mallory | ECON | [address] | | | | | [place] [address] | | + + + + + | Deidra Weldon | ECON | [address] | | | | | [place] | | | | | [address] | | + + + + + [...] | | | | [address] [facility] | [facility] | | | | | [facility], | [place], [place] | | | | | [place] [address] | [address] | | | | | [phone] | | | +--------+ + + + [...] [place] | | | | | | [address] | | | | | | [phone] | | | | | | | | +--------+ + + + + documented as of this encounter Visit Diagnoses Not on filedocumented in this encounter"
--- OUTSIDE RECORDS SUMMARY | ~2019-07-14 | XMS | Clinical Summary ---
Demographics + + + | Address | [address] | | | [place] [address] | + + + | Home Phone [...] [facility] | | | and [place]ana | + + + | Organization | [facility] [...] Team Providers + +------+ + | Care Purchase Price Analyst Name | Role | Phone | [...] | | | renal disease) ([facility]) | protocol | | | | [...] Active Kidney Transplant Waiting List at [facility]: | | 03/07/2014 | [...] 9. | | Treated by Dr. Joy, blueprint developer. | + + + +---+ | ESRD [...] | | but reclotted). Listed at 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 | | | [place] | | | y | | | [...] | | | St. | | | [place] | | | y | | | [...] | | | St. | | | [place] | | | y | | | [...] 2020 | | | | | | [place] | | | ED | | | Dispar | | | ity | | | Measur | | | e - | | | [place] | | | has | | | [...] | | | s. | | | [place] | | | | | | Health [...] | | | By: | | | [place] | | | | | | Health [...] | | | St. | | | [place] | | | y | | | [...] | | | St. | | | [place] | | | y H. | | [...] | | | St. | | | [place] | | | y H. | | [...] | | | St. | | | [place] | | | y H. | | [...] | | | St. | | | [place] | | | y H. | | [...] | | | St. | | | [place] | | | y H. | | [...] | | | St. | | | [place] | | | y H. | | [...] | | | [place] | | | [employer] | | | al | | | [...] | | | [place] | | | [employer] | | | al | | | [...] | | | MD | | | [employer] | | | al | | | [...] Thoracentesis wo Chest Tube (04/23/2019 11:31 AM [facility])Only the most recent of 2 re [...] | | space is punctured with an 5-Japanese thoracentesis catheter. Fluid is | | | [...] the pleural space is punctured with an 5-Japanese | | thoracentesis catheter. Fluid is aspirated [...] 17 | 10 - 65 U/L | [facility] | | | | | | LABORATORY | | + + + + + + | Estimated | 8 (L)Comment: GFR <60: | >60 | [facility] | | | GFR [...] performed at [facility];[address] | | | | | | [facility];[place], [place] | | | | | | [address] | | | | + + + + + + + + | Specimen | + + | Blood | + + + + + + + | Performing | Address | City/State/Zipcode | Phone Number | | Organization | | | | + + + + + | [facility] | [address] | [place] [address] | [phone] | + + + + + ECG [...] + | Matt, Rad Results In - 04/22/2019 8:24 AM [...] (H)Comment: 0.04 | 0.00 - 0.04 | [facility] | | | | [...] at | | | | | | [facility];[address] [place] [address] | | | | | | [facility];[place] [address] | | | | + + + + + + + + | Specimen | + + | Blood | + + + + + + + | Performing | Address | City/State/Zipcode | Phone Number | | Organization | | | | + + + + + | [facility] | [address] | [place] [address] | [phone] | + + + + + CK-MB [...] Nica | | | | | | [place] [address] | | | | + + + + + + + + | Specimen | + + | Blood | + + + + + + + | Performing | Address | City/State/Zipcode | Phone Number | | Organization | | | | + + + + + | [facility] | [address] | [place] [address] | [phone] | + + + + + Basic [...] 19 (L)Comment: GFR <60: | >60 | [facility] | | | GFR [...] performed at [facility] | | | | | | [facility];[place], [place] | | | | | | [address] | | | | + + + + + + + + | Specimen | + + | | + + + + + + + | Performing | Address | City/State/Zipcode | Phone Number | | Organization | | | | + + + + + | [facility] | [address] | [place] [address] | [phone] | + + + + + Cell [...] | | | Counted | performed at [facility];[address] | | LABORATORY | | | | [address];[place], [place] | | | | | | [address] | | | | + + + + + + + + | Specimen | + + | Body Fluid | + + + + + + + | Performing | Address | City/State/Zipcode | Phone Number | | Organization | | | | + + + + + | [facility] | [address] | [place] [address] | [phone] | + + + + + Protein, Body Fluid (04/19/2019 10:26 AM PST) + + + + + + | Component | Value | Ref Range | Performed | Pathologist | | | | | At | Signature | + + + + + + | Protein, | 2.6Comment: This is not | g/dL | [facility] | | | Body Fluid | a air reduction equipment operator validated | | LABORATORY | | | | sample type for this | | | | | | method. No | | | | | | referenceranges have | | | | | | been established.Testing | | | | | | performed at [facility], [address] | | | | [address] [facility], | | | | | | [place] [address] | | | | + + + + + + | SOURCE | THORACENTESIS | | [facility] | | | | FLUIDComment: Testing | | LABORATORY | | | | performed at [facility];[address] | | | | | | [address] [facility];[place], [place] | | | | | | [address] | | | | + + + + + + + + | Specimen | + + | Body Fluid | + + + + + + + | Performing | Address | City/State/Zipcode | Phone Number | | Organization | | | | + + + + + | [facility] | [address] | [place] [address] | [phone] | + + + + + Lactate dehydrogenase, body fluid (04/19/2019 10:26 AM PST) + + + + + + | Component | Value | Ref Range | Performed | Pathologist | | | | | At | Signature | + + + + + + | Lactate | 98Comment: This is not a | U/L | [facility] | | | Dehydrogena | air reduction equipment operator validated | | LABORATORY | | | se, Body | sample type for this | | | | | Fluid | method. No | | | | | | referenceranges have | | | | | | been established.Testing | | | | | | performed at [facility], [address] | | | | | | [address] [facility], | | | | | | [place] [address] | | | | + + + + + + + + | Specimen | + + | Body Fluid | + + + + + + + | Performing | Address | City/State/Zipcode | Phone Number | | Organization | | | | + + + + + | [facility] | [address] | [place] [address] | [phone] | + + + + + CBC [...] | | | Absolute | performed at [facility], [address] | K/uL | LABORATORY | | | | [facility] [address], | | | | | | [place] [address] | | | | + + + + + + + + | Specimen | + + | Blood | + + + + + + + | Performing | Address | City/State/Zipcode | Phone Number | | Organization | | | | + + + + + | [facility] | [address] | [place] [address] | [phone] | + + + + + Protein, Total (04/19/2019 4:49 AM PST) + + + + + + | Component | Value | Ref Range | Performed | Pathologist | | | | | At | Signature | + + + + + + | Protein, | 6.4Comment: Testing | 6.3 - 8.2 g/dL | [facility] | | | Total | performed at [facility];[address] | | LABORATORY | | | | [address];[place], [place] | | | | | | [address] | | | | + + + + + + + + | Specimen | + + | Blood | + + + + + + + | Performing | Address | City/State/Zipcode | Phone Number | | Organization | | | | + + + + + | [facility] | [address] | [place] [address] | [phone] | + + + + + Lactate [...] [facility] | | | | performed at [facility];[address] | | LABORATORY | | | | [address];[place], [place] | | | | | | [address] | | | | + + + + + + + + | Specimen | + + | Blood | + + + + + + + | Performing | Address | City/State/Zipcode | Phone Number | | Organization | | | | + + + + + | [facility] | [address] | [place] [address] | [phone] | + + + + + XR [...] | | | | | performed at [facility], [address] | | | | | | [facility], | | | | | | [place] [address] | | | | + + + + + + + + | Specimen | + + | Blood | + + + + + + + | Performing | Address | City/State/Zipcode | Phone Number | | Organization | | | | + + + + + | [facility] | [address] | [place] [address] | [phone] | + + + + + Hepatitis B Core Ab, Total (04/18/2019 1:32 PM PST) + + + + + + | Component | Value | Ref Range | Performed | Pathologist | | | | | At | Signature | + + + + + + | Hepatitis B | NON REACTIVEComment: | NR | [facility] | | | Core Ab | Testing performed at | | LABORATORY | | | Total | [facility], [address] | | | | | | [place] | | | | | | [address] | | | | + + + + + + + + | Specimen | + + | Blood | + + + + + + + | Performing | Address | City/State/Zipcode | Phone Number | | Organization | | | | + + + + + | [facility] | [address] | [place] [address] | [phone] | + + + + + Hepatitis [...] | | | | [facility], [address] [facility] | | | | | | [place], [place] | | | | | | [address] | | | | + + + + + + + + | Specimen | + + | Blood | + + + + + + + | Performing | Address | City/State/Zipcode | Phone Number | | Organization | | | | + + + + + | [facility] | [address] | [place] [address] | [phone] | + + + + + Protime INR (04/18/2019 1:32 PM PST) + + + + + + | Component | Value | Ref Range | Performed | Pathologist | | | | | At | Signature | + + + + + + | INR | 1.2Comment: REFERENCE | | [facility] | | | | RANGE:0.9 [...] [place];[address] | | | | | | [facility];[place] | | | | | | [address] | | | | + + + + + + + + | Specimen | + + | Blood | + + + + + + + | Performing | Address | City/State/Zipcode | Phone Number | | Organization | | | | + + + + + | [facility] | [address] | [place] [address] | [phone] | + + + + + D-Dimer [...] performed at [facility] | | | | | | [address];[place], [place] | | | | | | [address] | | | | + + + + + + + + | Specimen | + + | Blood | + + + + + + + | Performing | Address | City/State/Zipcode | Phone Number | | Organization | | | | + + + + + | [facility] | [address] | [place] [address] | [phone] | + + + + + Phosphorus (04/18/2019 1:32 PM PST) + + + + + + | Component | Value | Ref Range | Performed | Pathologist | | | | | At | Signature | + + + + + + | Phosphorus | 8.4 (H)Comment: Testing | 2.3 - 4.8 mg/dL | [facility] | | | | performed at [facility];[address] | | LABORATORY | | | | [address];[place], [place] | | | | | | [address] | | | | + + + + + + + + | Specimen | + + | Blood | + + + + + + + | Performing | Address | City/State/Zipcode | Phone Number | | Organization | | | | + + + + + | [facility] | [address] | [place] [address] | [phone] | + + + + + from [...] +--------+ +---------+--------+ | MEDICARE | MEDICA | [id number] | 05/05/19 | [phone] | | Medica | | | RE | | 13-Pre | 5 | | re | | | PART A | | sent | | | | | | AND B | | | | | | + +--------+ +--------+ +---------+--------+ | MEDICARE | MEDICA | [id number] | 05/05/19 | [phone] | | Medica | | | RE | | 13-Pre | 5 | | re | | | PART A | | sent | | | | | | AND B | | | | | | + +--------+ +--------+ +---------+--------+ | [employer]AN | MODA | [id number] | | [phone] | | Medica | | MEDICAID HMO | HEALTH | | 019-Pr | 1 | | id | | | MDCD | | esent | | | | | | [place] | | | | | | + +--------+ +--------+ +---------+--------+ | [employer] | MODA | [id number] | 03/06/19 | [phone] | | Medica [...] [place] | | | 2 (Home) | [address] | + +--------+ +--------+ + + | Dara Weldon | Person | Self [birth year] | [address] | | | al/Fam | | 1994 | [phone] | [address] [place] | | | [place] | | | 2 (Home) | [address] | + +--------+ +--------+ + + | Cory Wel[place] | Person | Father | [birth year] | [address] | | | al/Fam | | 1971 | [phone] | [place] [address] | | | [place] | | | 9 (Home) | | + +--------+ +--------+ + + Advance Directives + + + + + | Type | Date Recorded | Patient | Explanation | | | | Account Assistant | | + + + + + | Power of | 11/06/2018 7:27 | | | | Application Development Team Lead | PM | | | + + [...]
--- OUTSIDE RECORDS SUMMARY | ~2019-07-14 | XMS | Encounter Summary ---
Demographics + + + | Address | [address] | | | [place] [address] | + + + | Home Phone [...] | Author | [facility] | | | and [place] | + + + | Organization | [facility] [...] Team Providers + +------+ + | Care Felling Bucking Supervisor Name | Role | Phone | [...] | Encounter | JOY | MD Emanuel [address] | | | | | [address] | [facility] | | | | | [address] | [place], [place] | | | | | [place], [place] | [address] | | | | | [address] | [phone] | | | | | [phone] | | | +--------+ + + + [...]
--- OUTSIDE RECORDS SUMMARY | ~2019-07-14 | XMS | Encounter Summary ---
Demographics + + + | Address | [address] | | | [place] [address] | + + + | Home Phone [...] Team Providers + +------+ + | Care Kinder Teacher Name | Role | Phone | [...] [place] | | | | | [place] | [place] [address] | | | | | [address] | [phone] | | | | | [phone] | | | +--------+ + + + [...] 0.39 m/s | | | MV Dec [place]: 9.46 m/s2 MV DecT: 106.01 ms MV E Shahid: 1.00 | | | m/s MV E/A Ratio: 2.54 E/E' Sept: 23.82 E' Lat: 0.08 m/s | | | E' Sept: 0.04 m/s RAP: 15 mmHg RV S': 0.11 m/s RVSP: | | | 67.64 mmHg TR maxP.64 mmHg TR Vmax: 3.61 m/s | | | Lead Cytogenetic Technologist: Authenticated by: René Noonan MD Report Date/Time: | | | -- [id number]:15:25 | | + + + + + [...] (A-L): 31.60 | | ml/m2LAAs A2C: 18.56 [id number] A-L A2C: 58.49 mlLAESV MOD A2C: 54.57 mlLALs A2C: | | 5.00 cmLAAs A4C: 17.96 [id number] A-L A4C: 52.99 mlLAESV MOD A4C: 44.93 mlLALs A4C: | | 5.18 cmLAESV(MOD BP): 49.83 mlRAAs: 18.33 [id number] A-L: 57.01 mlRAESV MOD: | | 56.24 mlRALs: 5.02 cmTAPSE: 1.98 cmAV Env.Ti: 227.35 msAV maxP.22 mmHgAV | | meanP.25 mmHgAV Vmax: 1.59 m/Elizabeth Vmean: 1.06 m/Elizabeth VTI: 24.30 cmAVA Vmax: | | 2.68 cm2AVA (VTI): 2.73 [id number] Vmax: 0.00 cm2/m2AVAI (VTI): 0.00 cm2/m2LVOT | | Env.Ti: 210.72 msLVOT maxP.99 mmHgLVOT meanP.87 mmHgLVSI Dopp: 37.17 | | ml/m2LVSV Dopp: 66.54 mlLVOT Vmax: 1.41 m/sLVOT Vmean: 1.03 m/sLVOT VTI: 21.88 | | cmMV A Shahid: 0.39 m/sMV Dec [place]: 9.46 m/s2MV DecT: 106.01 msMV E Shahid: 1.00 | | m/sMV E/A Ratio: 2.54E/E' Sept: 23.82E' Lat: 0.08 m/sE' Sept: 0.04 m/sRAP: 15 | | mmHgRV S': 0.11 m/sRVSP: 67.64 mmHgTR maxP.64 mmHgTR Vmax: 3.61 m/s | | Lead Cytogenetic Technologist:Authenticated by: René Palacios Date/Time: -75_[id number]:15:25 | | IMPRESSION: 1. Overall left ventricular [...] A Shahid: 0.39 m/s | |MV Dec [place]: 9.46 m/s2 | |MV DecT: 106.01 ms | |MV E Shahid: 1.00 m/s | |MV E/A Ratio: 2.54 | |E/E' Sept: 23.82 | |E' Lat: 0.08 m/s | |E' Sept: 0.04 m/s | |RAP: 15 mmHg | |RV S': 0.11 m/s | |RVSP: 67.64 mmHg | |TR maxP.64 mmHg | |TR Vmax: 3.61 m/s | | | |Lead Cytogenetic Technologist: | |Authenticated by: René Noonan MD | |Report Date/Time: -- [id number]:15:25 | | | |IMPRESSION: | |1. Overall [...]
--- OUTSIDE RECORDS SUMMARY | ~2019-07-14 | XMS | Encounter Summary ---
Demographics + + + | Address | [address] | | | [place] [address] | + + + | Home Phone [...] | [facility] | | | and [place] | + + + | Organization | [facility] [...] Providers + +------+ + | Care Nursing Officer Name | Role | Phone | + +------+ + PCP | Unavailable | + +------+ + Encounter Details +--------+ + + + + | Date | Type | Department | Care Team | Description | +--------+ + + + + | 10/31/ | Hospital | [facility] | Conversion | ESRD (end stage | | 2015 | Encounter | CENTER CV INTRA OP | Transaction, | renal disease) on | | | | [address] | Provider Unknown | dialysis ([facility]) | | | | [place], [place] | [phone] | | | | | [address] | | | | | | [phone] | Colten Hutchins MD | | | | | | [address] | | | | | | [place], [place] | | | | | | [address] | | | | | | | [...] Note by Bev Carroll RN at 10/31/14 900 Author: Bev Carroll RN Service: Interventional Radiology Author Type: Registered Chantell e Filed: 10/31/14 6086 Date of Service: 10/31/141734 Status: Signed Fishery Biologist: Bev Carroll RN (Registered Nurse) Sutures removed [...] Note by Bev Carroll RN at 10/31/14 3996 Author: Bev Carroll, RN Service: Interventional Radiology Author Type: Registered Nu rse Filed: 10/31/141649 Date of Service: 10/31/141649 Status: Signed Fishery Biologist: Bev Carroll RN (Registered Nurse) Attempted removal [...] | | yesterday COMPARISON STUDIES: 10/28/2014 PRIMARY CUTTING MACHINE OPERATOR: | | | Colten Hutchins MD, PhD, [...] | microsheath were both exchanged for 6 Turkish sheaths. A catheter was | | | [...] yesterday | | COMPARISON STUDIES: 10/28/2014 PRIMARY CUTTING MACHINE OPERATOR: Colten Hutchins MD, PhD, RPVI | | [...] were both exchanged for 6 | | Turkish sheaths. A catheter was advanced over a [...] | | yesterday COMPARISON STUDIES: 10/28/2014 PRIMARY CUTTING MACHINE OPERATOR: | | | Colten Hutchins MD, PhD, [...] | microsheath were both exchanged for 6 Turkish sheaths. A catheter was | | | [...] yesterday | | COMPARISON STUDIES: 10/28/2014 PRIMARY CUTTING MACHINE OPERATOR: Colten Hutchins MD, PhD, RPVI | | [...] were both exchanged for 6 | | Turkish sheaths. A catheter was advanced over a [...] | | yesterday COMPARISON STUDIES: 10/28/2014 PRIMARY CUTTING MACHINE OPERATOR: | | | Colten Hutchins MD, PhD, [...] | microsheath were both exchanged for 6 Turkish sheaths. A catheter was | | | [...] yesterday | | COMPARISON STUDIES: 10/28/2014 PRIMARY CUTTING MACHINE OPERATOR: Colten Hutchins MD, PhD, RPVI | | [...] were both exchanged for 6 | | Turkish sheaths. A catheter was advanced over a [...] | | yesterday COMPARISON STUDIES: 10/28/2014 PRIMARY CUTTING MACHINE OPERATOR: | | | Colten Hutchins MD, PhD, [...] | microsheath were both exchanged for 6 Turkish sheaths. A catheter was | | | [...] yesterday | | COMPARISON STUDIES: 10/28/2014 PRIMARY CUTTING MACHINE OPERATOR: Colten Hutchins MD, PhD, [facility] | | OPERATIONS:1. Ultrasound-guided antegrade venous access.2. [...] were both exchanged for 6 | | Turkish sheaths. A catheter was advanced over a [...]
--- OUTSIDE RECORDS SUMMARY | ~2019-07-14 | XMS | Encounter Summary ---
Demographics + + + | Address | [address] | | | [place] [address] | + + + | Home Phone [...] | | | | | [place] [address] | | + + + + + | Thania Mallory | ECON | [address] | | | | | [place] [address] | | + + + + + | Deidra Weldon | ECON | [address] | | | | | [place] | | | | | [address] | | + + + + + Care Team Providers + +------+ + | Care Fruit Buying Grader Name | Role | Phone | [...] [place] | [facility] | | | | | [address] [place], | [place], [place] | | | | | [place] [address] | [address] | | | | | [phone] | | | +--------+ + + + [...] | | | | | | [place], [place] | | | | | | [address] | | | | | | [phone] | | | | | | | | +--------+ + + + + documented as of this encounter Visit Diagnoses Not on filedocumented in this encounter"
--- OUTSIDE RECORDS SUMMARY | ~2019-07-14 | XMS | Encounter Summary ---
Demographics + + + | Address | [address] | | | [place] [address] | + + + | Home Phone [...] Author | [facility] | | | and Josephana | + + + | Organization | [facility] [...] Providers + +------+ + | Care Library Manager Name | Role | Phone | [...] NEPHROLOGY [address] | M, DO [address] | | | | | [address] | [place] | | | | | [place], [place] | [place], [place] | | | | | [address] | [address] | | | | | [phone] | | | +--------+ + + + [...] in her mid left upper arm AVF. CANNON FIRE DIRECTION SPECIALIST today = 230 mmHg. In view of this will start her on ASA 81 mg, QD, and Plavix 75 mg, daily for prevention of AVF thrombosis, given the former indwelling stent. She was called by recentererElisabeth to begin above. : [facility] documented in this encounter Plan of Treatment Not on filedocumented as of this encounter Visit Diagnoses Not on filedocumented in this encounter
--- OUTSIDE RECORDS SUMMARY | ~2019-07-14 | XMS | Encounter Summary ---
Demographics + + + | Address | [address] | | | [place] [address] | + + + | Home Phone [...] + | Author | [facility] | | | and Josephana | + + + | Organization | [facility] [...] +------+ + | Care Sheet Metal Worker Apprentice Name | Role | Phone | + +------+ + PCP | Unavailable | + +------+ + Encounter Details +--------+ + + + + | Date | Type | Department | Care Team | Description | +--------+ + + + + | 11/21/ | Abstract | [facility] [place] | Daniela bIarra, | | | 2016 | | NEPHROLOGY [address] | [address] | | | | | [address] | [address] [place] | | | | | [place], [place] | [place] [address] | | | | | [address] | [phone] | | | | | [phone] | | | +--------+ + + + [...]
--- OUTSIDE RECORDS SUMMARY | ~2019-07-14 | XMS | Encounter Summary ---
Demographics + + + | Address | [address] | | | [place] [address] | + + + | Home Phone [...] | [facility] | | | and Josephana | + + + | Organization | [facility] | | [...] Providers + +------+ + | Care Vessel Slagman Name | Role | Phone | + [...] | stage renal | [address] | [address] [place] [address] | | | | | disease) | Shun Griffin | [place] | | | | | ([facility]) | [address] | [address] [place] | | | | | Anemia in | [place], [place] | [place] | | | | | ESRD | [address] | [address] Phone: | | | | | (end-stage | Phone: | [phone] | | | | | renal | [phone] | Fax: | | | | | disease) | Fax: | [phone] | | | | | ([facility]) | [phone] | | | | | | Procedures [...] | | [address] | [place] | (Primary Dx) | | | | [place], [place] | [place], [place] | | | | | [address] | [address] | | | | | [phone] | | | +--------+ + + + [...] uding the charge nurse, staff nurses, PCT's, lay out worker, dietitian myself she fails to [...] today in Plan: 1. Will continue to counselor aid her about her high risk for cardiovascular morbidity and compl ications given her lack of full compliance with her treatment. 2. The renal PRIVATE EQUITY ANALYST has been attempting to reach her. However, [...]
--- OUTSIDE RECORDS SUMMARY | ~2019-07-14 | XMS | Encounter Summary ---
Demographics + + + | Address | [address] | | | [place] [address] | + + + | Home Phone [...] | | | | | [place] [address] | | + + + + + | Thania Mallory | ECON | [address] | | | | | [place] [address] | | + + + + + | Deidra Weldon | ECON | [address] | | | | | [place] | | | | | [address] | | + + + + + Care Team Providers + +------+ + | Care Public Relations Account Supervisor Name | Role | Phone | [...] living/support | | | | [address] [place], | [place], [place] | situation) | | | | [place] [address] | [address] | | | | | [phone] | | | +--------+ + + + [...] Denise | | | | | | [place] | | | | | | [address] | | | | | | [phone] | | | | | | | | +--------+ + + + + documented as of this encounter Visit Diagnoses Not on filedocumented in this encounter"
--- OUTSIDE RECORDS SUMMARY | ~2019-07-14 | XMS | Encounter Summary ---
Demographics + + + | Address | [address] | | | [place] [address] | + + + | Home Phone [...] | | | | | [place] [address] | | + + + + + | Thania Mallory | ECON | [address] | | | | | [place] [address] | | + + + + + | Deidra Weldon | ECON | [address] | | | | | [place] | | | | | [address] | | + + + + + [...] | | | | [address] [place] | [facility] | | | | | [address] [facility], | [place], [place] | | | | | [place] [address] | [address] | | | | | [phone] | | | +--------+ + + + [...] Denise | | | | | | [place], [place] | | | | | | [address] | | | | | | [phone] | | | | | | | | +--------+ + + + + documented as of this encounter Visit Diagnoses Not on filedocumented in this encounter"
--- OUTSIDE RECORDS SUMMARY | ~2019-07-14 | XMS | Encounter Summary ---
Demographics + + + | Address | [address] | | | [place] [address] | + + + | Home Phone [...] | Author | [facility] | | | and Josephana | + + + | Organization | [facility] | [...] Providers + +------+ + | Care Manager Client Name | Role | Phone | + +------+ + PCP | Unavailable | + +------+ + Encounter Details +--------+ + + + + | Date | Type | Department | Care Team | Description | +--------+ + + + + | 04/07/ | Hospital | [facility] | Conversion | | | 2015 | Encounter | CENTER [facility] | Transaction, | | | | | CLINIC [address] | Provider Unknown | | | | | [place], [place] | [phone] | | | | | [address] | | | | | | [phone] | | | +--------+ + + + [...] EXTERNAL LAB | | Testing performed at [address];[place] [address] MRSA PCR | | | NEGATIVE Testing performed at | | | [address];[place] [address] | | + + + + +---------+ [...] | LAB | | | | [address];[place], [place] | | | | | | [address] | | | | + + + [...] | | | | | | [address];[place], [place] | | | | | | [address] | | | | + + + [...] EXTERNAL | | | | performed at [facility];[address] | | LAB | | | | [address];[place] | | | | | | [address] | | | | + + + + + + | Red Blood | 3.67 (L)Comment: Testing | 3.70 - 5.10 | EXTERNAL | | | Cells | performed at [facility];888 | M/uL | LAB | | | Counted | [address];[place] | | | | | | [address] | | | | + + + + + + | Hemoglobin | 13.0Comment: Testing | 11.3 - 15.5 | EXTERNAL | | | | performed at [facility];888 | g/dL | LAB | | | | [address];[place] | | | | | | [address] | | | | + + + + + + | Hematocrit, | 38.3Comment: Testing | 34.0 - 46.0 % | EXTERNAL | | | POC | performed at [facility];[address] | | LAB | | | | [address];[place] | | | | | | [address] | | | | + + + + + + | MCV | 104.3 (H)Comment: | 80.0 - 100.0 fl | EXTERNAL | | | | Testing performed at | | LAB | | | | [facility];[address] | [address];[place] [address] | | | | + + + + + + | MCH | 35.4 (H)Comment: Testing | 27.0 - 34.0 pg | EXTERNAL | | | | performed at [facility];[address] | | LAB | | | | [address];[place] | | | | | | [address] | | | | + + + + + + | MCHC | 33.9Comment: Testing | 32.0 - 35.5 | EXTERNAL | | | | performed at [facility];888 | g/dL | LAB | | | | [address];[place] | | | | | | [address] | | | | + + + + + + | RDW-CV | 48.1Comment: Testing | 37 - 53 fl | EXTERNAL | | | | performed at [facility];[address] | | LAB | | | | [address];[place] | | | | | | [address] | | | | + + + + + + | Platelet | 157Comment: Testing | 150 - 400 K/uL | EXTERNAL | | | Count | performed at [facility];[address] | | LAB | | | Plasma | [address];[place] | | | | | | [address] | | | | + + + + + + | MPV | 9.3Comment: Testing | fl | EXTERNAL | | | | performed at [facility];[address] | | LAB | | | | [address];[place] | | | | | | [address] | | | | + + + + + + | Differentia | AUTOMATEDComment: | | EXTERNAL | | | l Type | Testing performed at | | LAB | | | | [facility];[address];[place] [address] | | | | + + + + + + | % Segmented | 55.8Comment: Testing | % | EXTERNAL | | | | performed at [facility];[address] | | LAB | | | Neutrophils | [address];[place] | | | | | | [address] | | | | + + + + + + | % | 35.8Comment: Testing | % | EXTERNAL | | | Lymphocytes | performed at [facility];[address] | | LAB | | | | [address];[place] | | | | | | [address] | | | | + + + + + + | % Monocytes | 6.0Comment: Testing | % | EXTERNAL | | | | performed at [facility];[address] | | LAB | | | | [address];[place] | | | | | | [address] | | | | + + + + + + | % | 1.9Comment: Testing | % | EXTERNAL | | | Eosinophils | performed at [facility];[address] | | LAB | | | | [address];[place] | | | | | | [address] | | | | + + + + + + | % Basophils | 0.5Comment: Testing | % | EXTERNAL | | | | performed at [facility];[address] | | LAB | | | | [address];[place] | | | | | | [address] | | | | + + + + + + | Absolute | 2.8Comment: Testing | 1.9 - 7.4 K/uL | EXTERNAL | | | Segmented | performed at [facility];[address] | | LAB | | | Neutrophils | [address];[place] | | | | | | [address] | | | | + + + + + + | Absolute | 1.8Comment: Testing | 1.0 - 3.9 K/uL | EXTERNAL | | | Lymphocytes | performed at [facility];[address] | | LAB | | | | [address];[place] | | | | | | [address] | | | | + + + + + + | Absolute | 0.3Comment: Testing | 0 - 0.8 K/uL | EXTERNAL | | | Monocytes | performed at [facility];[address] | | LAB | | | | [address];[place] | | | | | | [address] | | | | + + + + + + | Absolute | 0.1Comment: Testing | 0 - 0.5 K/uL | EXTERNAL | | | Eosinophils | performed at [facility];[address] | | LAB | | | | [address];[place] | | | | | | [address] | | | | + + + + + + | Absolute | 0.0Comment: Testing | 0 - 0.1 K/uL | EXTERNAL | | | Basophils | performed at [facility];[address] | | LAB | | | | [address];[place] | | | | | | [address] | | | | + + + [...] | | | QUALITATIVE | performed at [facility];[address] | | LAB | | | | [address];[place], [place] | | | | | | [address] | | | | + + + [...] EXTERNAL | | | | performed at [facility];888 | mmol/L | LAB | | | | [address];[place] | | | | | | [address] | | | | + + + + + + | K | 3.3 (L)Comment: Testing | 3.5 - 4.9 | EXTERNAL | | | | performed at [facility];888 | mmol/L | LAB | | | | [address];[place] | | | | | | [address] | | | | + + + + + + | Cl | 99Comment: Testing | 99 - 109 mmol/L | EXTERNAL | | | | performed at [facility];[address] | | LAB | | | | [address];[place] | | | | | | [address] | | | | + + + + + + | CO2 | 29Comment: Testing | 23 - 32 mmol/L | EXTERNAL | | | | performed at [facility];[address] | | LAB | | | | [address];[place] | | | | | | [address] | | | | + + + + + + | Anion Gap | 13Comment: Testing | 5 - 20 mmol/L | EXTERNAL | | | | performed at [facility];[address] | | LAB | | | | [address];[place] | | | | | | [address] | | | | + + + + + + | Glucose, | 92Comment: Testing | 65 - 99 mg/dL | EXTERNAL | | | Fasting | performed at [facility];[address] | | LAB | | | | [address];[place] | | | | | | [address] | | | | + + + + + + | BUN | 30 (H)Comment: Testing | 8 - 25 mg/dL | EXTERNAL | | | | performed at [facility];[address] | | LAB | | | | [address];[place] | | | | | | [address] | | | | + + + + + + | Creatinine | 7.21 (H)Comment: Testing | 0.50 - 1.00 | EXTERNAL | | | | performed at [facility];888 | mg/dL | LAB | | | | [address];[place] | | | | | | [address] | | | | + + + + + + | BUN/Creatin | 4Comment: Testing | | EXTERNAL | | | ine Ratio | performed at [facility];[address] | | LAB | | | | [address];[place] | | | | | | [address] | | | | + + + + + + | Calcium | 8.3 (L)Comment: NOTE NEW | 8.5 - 10.5 | EXTERNAL | | | | REFERENCE RANGETesting | mg/dL | LAB | | | | performed at [facility];[address] | | | | | | [address];[place] | | | | | | [address] | | | | + + + [...] [place] | | | | | | [address] [...]
--- OUTSIDE RECORDS SUMMARY | ~2019-07-14 | XMS | Encounter Summary ---
Demographics + + + | Address | [address] | | | [place] [address] | + + + | Home Phone [...] | Author | [facility] | | | and Josephana | + + + | Organization | [facility] | | [...] Providers + +------+ + | Care Credit Controller Name | Role | Phone | + +------+ + PCP | Unavailable | + +------+ + Encounter Details +--------+ + + + + | Date | Type | Department | Care Team | Description | +--------+ + + + + | 07/10/ | Hospital | [facility] | | | | 2008 - | Encounter | MED CTR OP REHAB | | | | | | [address] | | | | 08/03/ | | [place] [address] | | | | 2008 | | [phone] | | | +--------+ + + + [...]
--- OUTSIDE RECORDS SUMMARY | ~2019-07-14 | XMS | Encounter Summary ---
Demographics + + + | Address | [address] | | | [place] [address] | + + + | Home Phone [...] | | | | | [place] [address] | | + + + + + | Thania Mallory | ECON | [address] | | | | | [place] [address] | | + + + + + | Deidra Weldon | ECON | [address] | | | | | [place] | | | | | [address] | | + + + + + Care Team Providers + +------+ + | Care Level Designer Name | Role | Phone | [...] with | | | | [address] [place], | [place], [place] | pt's dad) | | | | [place] [address] | [address] | | | | | [phone] | | | +--------+ + + + [...] [place] | | | | | | [address] | | | | | | [phone] | | | | | | | | +--------+ + + + + documented as of this encounter Visit Diagnoses Not on filedocumented in this encounter"
--- OUTSIDE RECORDS SUMMARY | ~2019-07-14 | XMS | Encounter Summary ---
Demographics + + + | Address | [address] | | | [place] [address] | + + + | Home Phone [...] | | | | | [place] [address] | | + + + + + | Thania Mallory | ECON | [address] | | | | | [place] [address] | | + + + + + | Deidra Weldon | ECON | [address] | | | | | [place] | | | | | [address] | | + + + + + Care Team Providers + +------+ + | Care Learning Disabilities Resource Teacher Name | Role | Phone | [...] | | | | | [address] [facility], | [place], [place] | | | | | [place] [address] | [address] | | | | | [phone] | | | +--------+ + + + [...] [place] | | | | | | [address] | | | | | | [phone] | | | | | | | | +--------+ + + + + documented as of this encounter Visit Diagnoses Not on filedocumented in this encounter"
--- OUTSIDE RECORDS SUMMARY | ~2019-07-14 | XMS | Encounter Summary ---
Demographics + + + | Address | [address] | | | [place] [address] | + + + | Home Phone [...] | [facility] | | | and [place]ana | + + + | Organization | [facility] [...] Providers + +------+ + | Care Inspector [place] Name | Role | Phone | + [...] + + | 02/21/ | Telephone | [facility] | Blake Chavarria | Procedure (Question) | | 2013 | | SURGERY [address] | MD Antonieta, FACS [address] | | | | | [place] | [address] [facility] | | | | | [address] | [place] [address] | | | | | [phone] | [phone] | | | | | | | [...]
--- OUTSIDE RECORDS SUMMARY | ~2019-07-14 | XMS | Encounter Summary ---
Demographics + + + | Address | [address] | | | [place] [address] | + + + | Home Phone [...] | | | | | [place] [address] | | + + + + + | Thania Mallory | ECON | [address] | | | | | [place] [address] | | + + + + + | Deidra Weldon | ECON | [address] | | | | | [place] | | | | | [address] | | + + + + + Care Team Providers + +------+ + | Care Employment Counselor Name | Role | Phone | [...] ) | | | | [address] | [facility] | | | | | [facility], | [place], [place] | | | | | [place] [address] | [address] | | | | | [phone] | | | +--------+ + + + [...] [place] | | | | | | [address] | | | | | | [phone] | | | | | | | | +--------+ + + + + documented as of this encounter Visit Diagnoses Not on filedocumented in this encounter"
--- OUTSIDE RECORDS SUMMARY | ~2019-07-14 | XMS | Encounter Summary ---
Demographics + + + | Address | [address] | | | [place] [address] | + + + | Home Phone [...] | | | | | [place] [address] | | + + + + + | Thania Mallory | ECON | [address] | | | | | [place] [address] | | + + + + + | Deidra Weldon | ECON | [address] | | | | | [place] | | | | | [address] | | + + + + + Care Team Providers + +------+ + | Care Software Tools Build Engineer Name | Role | Phone | [...] | | | [place], | [place] [address] | | | | | [place] [address] | [phone] | | | | | | | [...] Denise | | | | | | [place], [place] | | | | | | [address] | | | | | | [phone] | | | | | | | [...] [facility] - | [address] | [place] [address] | | | IMMUNOGENETICS/TRANS | [address] | | | | [facility] | | | | + + + + + documented in this encounter Visit Diagnoses Not on filedocumented in this encounter"
--- OUTSIDE RECORDS SUMMARY | ~2019-07-14 | XMS | Encounter Summary ---
Demographics + + + | Address | [address] | | | [place] [address] | + + + | Home Phone [...] | | | | | [place] [address] | | + + + + + | Thania Mallory | ECON | [address] | | | | | [place] [address] | | + + + + + | Deidra Weldon | ECON | [address] | | | | | [place] | | | | | [address] | | + + + + + Care Team Providers + +------+ + | Care Quality Systems Manager Name | Role | Phone [...] | | | | [address] | [facility] | | | | | [address] [facility], | [place], [place] | | | | | [place] [address] | [address] | | | | | [phone] | | | +--------+ + + + [...] [place] | | | | | | [address] | | | | | | [phone] | | | | | | | | +--------+ + + + + documented as of this encounter Visit Diagnoses Not on filedocumented in this encounter"
--- OUTSIDE RECORDS SUMMARY | ~2019-07-14 | XMS | Encounter Summary ---
Demographics + + + | Address | [address] | | | [place] [address] | + + + | Home Phone [...] | | | | | [place] [address] | | + + + + + | Thania Mallory | ECON | [address] | | | | | [place] [address] | | + + + + + | Deidra Weldon | ECON | [address] | | | | | [place] | | | | | [address] | | + + + + + Care Team Providers + +------+ + | Care Supervisor Cook House Name | Role | Phone | + [...] Transplant Services | RN [address] [facility] | list) | | | | [address] [place] | [facility] | | | | | Caro [facility], | [place], [place] | | | | | [place] [address] | [address] | | | | | [phone] | | | +--------+ + + + [...] Denise | | | | | | [place], [place] | | | | | | [address] | | | | | | [phone] | | | | | | | | +--------+ + + + + documented as of this encounter Visit Diagnoses Not on filedocumented in this encounter"
--- OUTSIDE RECORDS SUMMARY | ~2019-07-14 | XMS | Encounter Summary ---
Demographics + + + | Address | [address] | | | [place] [address] | + + + | Home Phone [...] | | | | | [place] [address] | | + + + + + | Thania Mallory | ECON | [address] | | | | | [place] [address] | | + + + + + | Deidra Weldon | ECON | [address] | | | | | [place] | | | | | [address] | | + + + + + Care Team Providers + +------+ + | Care Postal Support Employee Name | Role | Phone | + [...] | | | | | Park [address] [place], | [place], [place] | | | | | [place] [address] | [address] | | | | | [phone] | | | +--------+ + + + [...] [place] | | | | | | [address] | | | | | | [phone] | | | | | | | | +--------+ + + + + documented as of this encounter Visit Diagnoses Not on filedocumented in this encounter"
--- OUTSIDE RECORDS SUMMARY | ~2019-07-14 | XMS | Encounter Summary ---
Demographics + + + | Address | [address] | | | [place] [address] | + + + | Home Phone [...] | | | | | [place] [address] | | + + + + + | Thania Mallory | ECON | [address] | | | | | [place] [address] | | + + + + + | Deidra Weldon | ECON | [address] | | | | | [place] | | | | | [address] | | + + + + + Care Team Providers + +------+ + | Care Information Technology Internship Name | Role | Phone | + +------+ + PCP | Unavailable | + +------+ + Encounter Details +--------+ + + + + | Date | Type | Department | Care Team | Description | +--------+ + + + + | 04/09/ | Abstract | Pediatric | Sudhakar Joy | | | 2013 | | Nephrology at | MD Emanuel [address] | | | | | [place] | Elias [place] | | | | | [facility] | [place], [place] | | | | | [address] | [address] | | | | | [place] | [phone] | | | | | [facility], | | | | | | [address] [place] [place] [address] | | | | | | [place], [place] | | | | | | [address] | | | | | | [phone] | | | +--------+ + + + [...] Denise | | | | | | [place], [place] | | | | | | [address] | | | | | | [phone] | | | | | | | | +--------+ + + + + documented as of this encounter Visit Diagnoses Not on filedocumented in this encounter"
--- OUTSIDE RECORDS SUMMARY | ~2019-07-14 | XMS | Encounter Summary ---
Demographics + + + | Address | [address] | | | [place] [address] | + + + | Home Phone [...] Author | [facility] | | | and Josephana | + + + | Organization | [facility] | | | and Josephana | [...] Providers + +------+ + | Care Wildlife Officer Name | Role | Phone | [...] | | | | 21) End | [place], [place] | [place], [place] | | | | | stage renal | [address] | [address] Phone: | | | | | disease | Phone: | [phone] | | | | | ([facility]) | [phone] | Fax: | | | | | Infection | Fax: | [phone] | | | | | and | [phone] | | | | | | inflammatory [...] M, DO [address] | renal disease) ([facility]) | | | | [address] | [place], [address] | (Primary Dx); | | | | [place], [place] | [place], [place] | Anemia in ESRD | | | | [address] | [address] | (end-stage renal | | | | [phone] | | disease) ([facility]) | +--------+ + + [...] There fore she has had construction of [place] radio cephalic fistula in her left arm [...] Chavarria's help with her permanent AVF. C: [place] Fina Joy MD, [facility], [facility] documented in thi s encounter Plan of Treatment Not on filedocumented as of this encounter Visit Diagnoses + + | Diagnosis | + + | ESRD (end stage renal disease) ([facility]) - Primary End stage renal disease | + + | Anemia in ESRD (end-stage renal disease) ([facility]) Anemia in chronic kidney disease | + + documented in this encounter"
--- OUTSIDE RECORDS SUMMARY | ~2019-07-14 | XMS | Encounter Summary ---
Demographics + + + | Address | [address] | | | [place] [address] | + + + | Home Phone [...] + | Author | [facility] | | | and Josephana | + + + | Organization | [facility] [...] Providers + +------+ + | Care Carbon Furnace Operator Name | Role | Phone [...] | | | | 21) End | [place], [place] | [place], [place] | | | | | stage renal | [address] | [address] Phone: | | | | | disease | Phone: | [phone] | | | | | ([facility]) | [phone] | Fax: | | | | | Infection | Fax: | [phone] | | | | | and | [phone] | | | | | | inflammatory [...] | | [address] | [place], [address] | (Primary Dx) | | | | [place], [place] | [place], [place] | | | | | [address] | [address] | | | | | [phone] | | | +--------+ + + + [...] vein Three times a w [place]. epoetin jenna (EPOGEN, PROCRIT) 10,000 units/mL injection [...] she should keep up t his effort senior care. 3. Heat, Daniel Denny, OTC, and tramadol, short term for her back. 4. Will recheck her in 1 week. CC: [place] Fina Joy MD, [facility] Trans[facility], [facility] signed by Jorje Camp DO at 10/27/2014 4:32 PM PDTdocumented in this encount er Plan of Treatment Not on filedocumented as of this encounter Visit Diagnoses + + | Diagnosis | + + | ESRD (end stage renal disease) ([facility]) - Primary End stage renal disease | + + documented in this encounter
--- OUTSIDE RECORDS SUMMARY | ~2019-07-14 | XMS | Encounter Summary ---
Demographics + + + | Address | [address] | | | [place] [address] | + + + | Home Phone [...] | [facility] | | | and Josephana | + + + | Organization | [facility] [...] | | | | [place], [place] | [phone] | | | | | [address] | | | | | | [phone] | | | +--------+ + + + [...]
--- OUTSIDE RECORDS SUMMARY | ~2019-07-14 | XMS | Encounter Summary ---
Demographics + + + | Address | [address] | | | [place] [address] | + + + | Home Phone [...] | | | | | [place] [address] | | + + + + + | Thania Mallory | ECON | [address] | | | | | [place] [address] | | + + + + + | Deidra Weldon | ECON | [address] | | | | | [place] | | | | | [address] | | + + + + + Care Team Providers + +------+ + | Care Cytogenetics Laboratory Manager Name | Role | Phone [...] | Nephrology at | MD Emanuel [address] [facility] | | | | | Alexander | [facility] | | | | | [facility] | [place], [place] | | | | | [address] | [address] | | | | | [place] | [phone] | | | | | [facility], | | | | | | [address] [place] [address] | | | | | | [place], [place] | | | | | | [address] | | | | | | [phone] | | | +--------+ + + + [...] Denise | | | | | | [place], [place] | | | | | | [address] | | | | | | [phone] | | | | | | | [...] | + + + + + | [facility] | [address] | [place] [address] | [phone] | | HOSPITAL | | | | [...] [address] | [place] [address] | [phone] | | HOSPITAL | | | | + + + + + documented in this encounter Visit Diagnoses Not on filedocumented in this encounter"
--- OUTSIDE RECORDS SUMMARY | ~2019-07-14 | XMS | Encounter Summary ---
Demographics + + + | Address | [address] | | | [place] [address] | + + + | Home Phone [...] + | Author | [facility] | | | and Josephana | + + + | Organization | [facility] | | [...] Team Providers + +------+ + | Care Dean Of Girls Name | Role | Phone | + [...] RN | | | | | [address] [facility] [address] | | | | | | [place] | | | | | | [address] | | | | | | [phone] | | | +--------+ + + + [...]
--- OUTSIDE RECORDS SUMMARY | ~2019-07-14 | XMS | Encounter Summary ---
Demographics + + + | Address | [address] | | | [place] [address] | + + + | Home Phone [...] | Author | [facility] | | | and Josephana | + + + | Organization | [facility] [...] Providers + +------+ + | Care Product Distribution Specialist Name | Role | Phone | [...] + | 02/28/ | Telephone | [facility] | Blake Chavarria | Appointment (Post | | 2013 | | [address] | MD Antonieta, FACS [address] | Op) | | | | [place], [place] | [address] | | | | | [address] | [place] [address] | | | | | [phone] | [phone] | | | | | | | [...]
--- OUTSIDE RECORDS SUMMARY | ~2019-07-14 | XMS | Encounter Summary ---
Demographics + + + | Address | [address] | | | [place] [address] | + + + | Home Phone [...] | Author | [facility] | | | and Josephana | + + + | Organization | [facility] | [...] Providers + +------+ + | Care Gear Roller Name | Role | Phone | [...] | | | | 21) End | [place], [place] | [place], [place] | | | | | stage renal | [address] | [address] Phone: | | | | | disease | Phone: | [phone] | | | | | ([facility]) | [phone] | Fax: | | | | | Infection | Fax: | [phone] | | | | | and | [phone] | | | | | | inflammatory [...] West | renal disease) ([facility]) | | | | [address] | [place], [address] | (Primary Dx); | | | | [place], [place] | [place], [place] | Anemia in ESRD | | | | [address] | [address] | (end-stage renal | | | | [phone] | | disease) ([facility]) [...] recheck her Hb in one week. CC: [place] Fina Joy MD, Renal Transplant Clinic, [facility] Balke Chavarria MD, FACS documented in thi s encounter Plan of Treatment Not on filedocumented as of this encounter Visit Diagnoses + + | Diagnosis | + + | ESRD (end stage renal disease) ([facility]) - Primary End stage renal disease | + + | Anemia in ESRD (end-stage renal disease) ([facility]) Anemia in chronic kidney disease | + + documented in this encounter"
--- OUTSIDE RECORDS SUMMARY | ~2019-07-14 | XMS | Encounter Summary ---
Demographics + + + | Address | [address] | | | [place] [address] | + + + | Home Phone [...] | | | | | [place] [address] | | + + + + + | Thania Mallory | ECON | [address] | | | | | [place] [address] | | + + + + + | Deidra Weldon | ECON | [address] | | | | | [place] | | | | | [address] | | + + + + + Care Team Providers + +------+ + | Care Field Service Supervisor Name | Role | Phone [...] on | | | | [address] [place], | [place], [place] | [place] | | | | [place] [address] | [address] | care plan) | | | | [phone] | | | +--------+ + + + [...] Denise | | | | | | [place] | | | | | | [address] | | | | | | [phone] | | | | | | | | +--------+ + + + + documented as of this encounter Visit Diagnoses Not on filedocumented in this encounter"
--- OUTSIDE RECORDS SUMMARY | ~2019-07-14 | XMS | Encounter Summary ---
Demographics + + + | Address | [address] | | | [place] [address] | + + + | Home Phone [...] Author | [facility] | | | and Josephana | + + + | Organization | [facility] | | | [...] Team Providers + +------+ + | Care Classroom Technology Coach Name | Role | Phone | [...] | Encounter | JOY | MD Emanuel [address] | | | | | [address] | [facility] | | | | | [address] | [place], [place] | | | | | [place], [place] | [address] | | | | | [address] | [phone] | | | | | [phone] | | | +--------+ + + + [...]
--- OUTSIDE RECORDS SUMMARY | ~2019-07-14 | XMS | Encounter Summary ---
Demographics + + + | Address | [address] | | | [place] [address] | + + + | Home Phone [...] | [facility] | | | and Josephana | + + + | Organization | [facility] | | [...] Team Providers + +------+ + | Care Lump Maker Name | Role | Phone | [...] | | | | 21) End | [place], [place] | [place], [place] | | | | | stage renal | [address] | [address] Phone: | | | | | disease | Phone: | [phone] | | | | | ([facility]) | [phone] | Fax: | | | | | Infection | Fax: | [phone] | | | | | and | [phone] | | | | | | inflammatory [...] | | [address] | [place], [address] | (Primary Dx) | | | | [place], [place] | [place], [place] | | | | | [address] | [address] | | | | | [phone] | | | +--------+ + + + [...] into the vein Three times a w [place]. epoetin jenna (EPOGEN, PROCRIT) 10,000 units/mL injection [...] Will recheck her in 1 week. CC: [place] Fina Joy MD, Renal Transplant Clinic, [facility] signed by Jorje Camp DO at 10/27/2014 4:32 PM PDTdocumented in this encount er Plan of Treatment Not on filedocumented as of this encounter Visit Diagnoses + + | Diagnosis | + + | ESRD (end stage renal disease) ([facility]) - Primary End stage renal disease | + + documented in this encounter
--- OUTSIDE RECORDS SUMMARY | ~2019-07-14 | XMS | Encounter Summary ---
Demographics + + + | Address | [address] | | | [place] [address] | + + + | Home Phone [...] | | | | | [place] [address] | | + + + + + | Deidra Weldon | ECON | [address] | | | | | [place] | | | | | [address] | | + + + + + Care Team Providers + +------+ + | Care In Flight Refueling System Repairer Name | Role | Phone | [...] updated) | | | | [address] [place], | [place], [place] | | | | | [place] [address] | [address] | | | | | [phone] | [phone] | | | | | | | [...] Denise | | | | | | [place] | | | | | | [address] | | | | | | [phone] | | | | | | | | +--------+ + + + + documented as of this encounter Visit Diagnoses Not on filedocumented in this encounter"
--- OUTSIDE RECORDS SUMMARY | ~2019-07-14 | XMS | Encounter Summary ---
Demographics + + + | Address | [address] | | | [place] [address] | + + + | Home Phone [...] | | | | | [place] [address] | | + + + + + | Thania Mallory | ECON | [address] | | | | | [place] [address] | | + + + + + | Deidra Weldon | ECON | [address] | | | | | [place] | | | | | [address] | | + + + + + Care Team Providers + +------+ + | Care Foreign Languages Department Chair Name | Role | Phone | + [...] | MD Emanuel [address] [facility] | | | | | Alexander | [facility] | | | | | [facility] | [place], [place] | | | | | [address] [facility] | [address] | | | | | Alexander | [phone] | | | | | [facility], | | | | | | [address] [place] [address] | | | | | | [place], [place] | | | | | | [address] | | | | | | [phone] | | | +--------+ + + + [...] [facility] | | | | | | [address] | | | | | | [phone] | | | | | | | | +--------+ + + + + documented as of this encounter Visit Diagnoses Not on filedocumented in this encounter"
--- OUTSIDE RECORDS SUMMARY | ~2019-07-14 | XMS | Encounter Summary ---
Demographics + + + | Address | [address] | | | [place] [address] | + + + | Home Phone [...] | | | | | [place] [address] | | + + + + + | Thania Mallory | ECON | [address] | | | | | [place] [address] | | + + + + + | Deidra Weldon | ECON | [address] | | | | | [place] | | | | | [address] | | + + + + + Care Team Providers + +------+ + | Care Marine Mammal Trainer Name | Role | Phone | [...] | | | [address] | [facility] | | | | | [address] [place], | [place], [place] | | | | | [place] [address] | [address] | | | | | [phone] | | | +--------+ + + + [...] Denise | | | | | | [place] | | | | | | [address] | | | | | | [phone] | | | | | | | | +--------+ + + + + documented as of this encounter Visit Diagnoses Not on filedocumented in this encounter"
--- OUTSIDE RECORDS SUMMARY | ~2019-07-14 | XMS | Encounter Summary ---
Demographics + + + | Address | [address] | | | [place] [address] | + + + | Home Phone [...] | Author | [facility] | | | and Josephana | + + + | Organization | [facility] | [...] Team Providers + +------+ + | Care Paver Layer Name | Role | Phone | [...] + | 03/05/ | Clinical | [facility] | Blake Chavarria | End stage renal | | 2013 | Support | SUR[address] | MD Antonieta, FACS [address] | failure on dialysis | | | | [place], [place] | [facility] | ([facility]) (Primary Dx) | | | | [address] | [place] [address] | | | | | [phone] | [phone] | | | | | | | [...]
--- OUTSIDE RECORDS SUMMARY | ~2019-07-14 | XMS | Encounter Summary ---
Demographics + + + | Address | [address] | | | [place] [address] | + + + | Home Phone [...] | | | | | [place] [address] | | + + + + + | Thania Mallory | ECON | [address] | | | | | [place] [address] | | + + + + + | Deidra Weldon | ECON | [address] | | | | | [place] | | | | | [address] | | + + + + + Care Team Providers + +------+ + | Care Power Bender Operator Name | Role | Phone | [...] | | [address] | [facility] | | | | | [facility], | [place], [place] | | | | | [place] [address] | [address] | | | | | [phone] | | | +--------+ + + + [...] [facility] | | | | | | [address] | | | | | | [phone] | | | | | | | | +--------+ + + + + documented as of this encounter Visit Diagnoses Not on filedocumented in this encounter"
--- OUTSIDE RECORDS SUMMARY | ~2019-07-14 | XMS | Encounter Summary ---
Demographics + + + | Address | [address] | | | [place] [address] | + + + | Home Phone [...] | | | | | [place] [address] | | + + + + + | Thania Mallory | ECON | [address] | | | | | [place] [address] | | + + + + + | Deidra Weldon | ECON | [address] | | | | | [place] | | | | | [address] | | + + + + + Care Team Providers + +------+ + | Care Mining And Quarrying Machinery Repairer Name | Role | Phone | [...] | | | [address] | [facility] | | | | | [address] [facility], | [place], [place] | | | | | [place] [address] | [address] | | | | | [phone] | | | +--------+ + + + [...] Denise | | | | | | [place] | | | | | | [address] | | | | | | [phone] | | | | | | | | +--------+ + + + + documented as of this encounter Visit Diagnoses Not on filedocumented in this encounter"
--- OUTSIDE RECORDS SUMMARY | ~2019-07-14 | XMS | Encounter Summary ---
Demographics + + + | Address | [address] | | | [place] [address] | + + + | Home Phone [...] | | | | | [place] [address] | | + + + + + | Thania Mallory | ECON | [address] | | | | | [place] [address] | | + + + + + | Deidra Weldon | ECON | [address] | | | | | [place] | | | | | [address] | | + + + + + Care Team Providers + +------+ + | Care Manager Risk Management Name | Role | Phone | [...] [address] | [facility] | | | | | [address] [place] [place], | [place], [place] | | | | | [place] [address] | [address] | | | | | [phone] | | | +--------+ + + + [...] Denise | | | | | | [place] | | | | | | [address] | | | | | | [phone] | | | | | | | | +--------+ + + + + documented as of this encounter Visit Diagnoses Not on filedocumented in this encounter"
--- OUTSIDE RECORDS SUMMARY | ~2019-07-14 | XMS | Encounter Summary ---
Demographics + + + | Address | [address] | | | [place] [address] | + + + | Home Phone [...] [facility] | | | and [place]ana | + + + | Organization | [facility] | [...] Team Providers + +------+ + | Care Investigation Lieutenant Name | Role | Phone | + [...] | | | | 21) End | [place], [place] | [place], [place] | | | | | stage renal | [address] | [address] Phone: | | | | | disease | Phone: | [phone] | | | | | ([facility]) | [phone] | Fax: | | | | | Infection | Fax: | [phone] | | | | | and | [phone] | | | | | | inflammatory [...] DO [address] | renal disease) ([facility]) | | | | [address] | [place], [address] | (Primary Dx); | | | | [place], [place] | [place], [place] | Anemia in ESRD | | | | [address] | [address] | (end-stage renal | | | | [phone] | | disease) ([facility]) | +--------+ + + + + Social [...] CC: Jamil Joy MD, Renal Transplant Clinic, [facility] Blake Chavarria MD, FACS documented in thi s encounter Plan of Treatment Not on filedocumented as of this encounter Visit Diagnoses + + | Diagnosis | + + | ESRD (end stage renal disease) ([facility]) - Primary End stage renal disease | + + | Anemia in ESRD (end-stage renal disease) ([facility]) Anemia in chronic kidney disease | + + documented in this encounter"
--- OUTSIDE RECORDS SUMMARY | ~2019-07-14 | XMS | Encounter Summary ---
Demographics + + + | Address | [address] | | | [place] [address] | + + + | Home Phone [...] | Author | [facility] | | | and Josephana | + + + | Organization | [facility] | [...] Providers + +------+ + | Care Conveyor Monitor Name | Role | Phone | + +------+ + | Tien Nicholson MD | PCP | | + +------+ + Encounter Details +--------+ + + + + | Date | Type | Department | Care Team | Description | +--------+ + + + + | 05/26/ | Hospital | [facility] | Mayco Rizvi MD | Chest pain, | | 2019 - | Encounter | [facility] | [address] [place] | unspecified type; | | | | CARE FLOOR [address] | [address] [place], [place] | Hypoalbuminemia; | | 06/01/ | | [address] | [address] | Anemia in ESRD | | 2019 | | [place], [place] | | (end-stage renal | | | | [id number] | | disease) ([facility]); | | | | [phone] | | End-stage renal | | | [...] | | | | | failure) ([facility]) | +--------+ + + + [...] documented in this encounter Discharge Summaries Darell Kowalski MD - 06/01/2018 9:59 AM PDTFormatting of this note might be different f rom the original. Discharge Summaries by Darell Kowalski MD at 06/01/18 0959 Author: Darell Kowalski MD Service: Hospitalist Author Type: Physician Filed: 06/15/18 1207 Date of Service: 06/01/18 0959 Status: Addendum Autocad Technician: Darell Kowalski MD (Physician) Related Notes: Original Note by Darell Kowalski MD (Physician) filed at 06/04/18 7066 [facility] Service: Hospitalist Physician Discharge Summary Pt: Dara Louise AGE/SEX: 23 y.o. female ROOM: [address] [place] [address] PCP: TIEN NICHOLSON : 1995 Admit date: [...] 17. The mitral valve is normal. 18. Jcqt-hp-bnbkw ate eccentric mitral regurgitation is present. 19. [...] hyperkalemia with that. I discussed with the hat maker as well regarding not being on [place]/ARB. [...] Component Value Units Date/Time Culture, Body Fluid [[id number]] Collected: 05/26/18 1412 Specimen: Body Fluid from Pleural Fluid Updated: 05/30/18 0733 Specimen Description PLEURAL FLUID GRAM STAIN WBC'S SEEN GRAM STAIN NO ORGANISMS SEEN GRAM STAIN STAIN PERFORMED ON CYTOSPIN CULTURE NO GROWTH 4 DAYS Culture, Body Fluid [[id number]] Collected: 05/26/18 1513 Specimen: Other from Ascites Fluid Updated: 05/30/18 0732 Specimen Description ASCITES FLUID GRAM STAIN STAIN PERFORMED ON CYTOSPIN GRAM STAIN WBC'S SEEN GRAM STAIN NO EPITHELIAL CELLS SEEN GRAM STAIN NO ORGANISMS SEEN CULTURE NO GROWTH 4 DAYS Gram stain [[id number]] Collected: 05/29/18 1256 Specimen: Sputum from Thoracic Fluid Updated: 05/29/18 2339 Specimen Description THORACIC FLUID CULTURE 1+ WBC'S SEEN NO ORGANISMS SEEN Lactate dehydrogenase, body fluid [[id number]] Collected: 05/29/18 1256 Specimen: Body Fluid from Pleural, Right Updated: 05/29/18 1619 FLUID LDH 151 U/L Cholesterol, body fluid [[id number]] Collected: 05/29/18 1256 Specimen: Body Fluid from [...] medications if needed. Follow-Up: Tien Nicholson MD [address], [address] [place] [address] In 1 week Carolina Mahmood DO [address] [place] [facility] [id number] In 1 week Daniela Ibarra MD [address] [facility] [id number] In 1 week Discharge took more than 35 minutes, to include final examination, discussion of admission, and preparation of prescriptions, instructions for ongoing care, follow up and dictation of summary. Signed: DARELL KOWALSKI MD 06/01/2018 9:59 AM Dictation software, [id number], used which may contain error for similar [...] Date of Service: 06/01/18 150 Status: Signed Autocad Technician: Tino Paiz CRT (Certified Respiratory Therapist) [facility] Department of Respiratory Nursing Home Oxygen Evaluation [...] (none) Author Type: Registered Nurse Filed: 06/01/18 5346 Date of Service: 06/01/18 1500 Status: Signed Autocad Technician: Autumn Moy RN (Registered Nurse) Pt was [...] Date of Service: 06/01/18 1248 Status: Signed Autocad Technician: Leanna Ariza RN (Registered Nurse) Pt will d/c home today --already established on HD/[place] MWF --will have O2 eval today No other needs Angela Antonio Carrasco MD - 06/01/2018 10:52 AM PDTFormatting of this note might be different from the orig inal. Progress Notes by Antonio Pabon MD at 06/01/18 1052 Author: Antonio Pabon MD Service: Nephrology Author Type: Physician Filed: 06/05/18 1253 Date of Service: 06/01/18 1052 Status: Signed Autocad Technician: Antonio Pabon MD (Physician) [facility] Service: NEPHROLOGY Dialysis/ Progress Note Dara Lundberg Shiraz 23 y.o. [id number] female [facility] Day: LOS: 6 days Patient with [...] AV FISTULA; Surgeon: Rik Simon MD; Location: [facility] MAIN OR; Service: Vascula r; Laterality: Left; cephalic AV FISTULA REPAIR Left 03/07/2014 Procedure: AV FISTULA - GRAFT REPAIR/REVISION; Surgeon: Rik Simon MD; Location: [facility] MA IN OR; Service: Vascular; Laterality: Left; DECLOT GRAFT Left 03/07/2014 Procedure: GRAFT - DECLOT; Surgeon: Rik Simno MD; Location: [facility] MAIN OR; Service: Vas cular; Laterality: Left; DIALYSIS FISTULA CREATION N/A 04/08/2014 Procedure: DIALYSIS CATHETER - INSERTION; Surgeon: Rik Simon MD; Location: [facility] MAIN OR ; Service: Vascular; Laterality: N/A; tunneled catheter LAPAROSCOPIC PERITONEAL DIALYSIS CATHETER INSERTION x2 LAPAROSCOPIC PERITONEAL DIALYSIS CATHETER INSERTION Right 07/2013 current dialysis access MWF dialysis RENAL BIOPSY SUPERFICIALIZATION OF AV FISTULA Left 06/24/2014 Procedure: AV FISTULA - SUPERFICIALIZATION; Surgeon: Rik Simon MD; Location: [facility] MAIN OR; Service: Vascular; [...] radiologist report and is used for image [employer] only Us Abdomen Limited Result Date: 05/28/2018 [...] 17. The mitral valve is normal. 18. Kjsc-sb-dadoavxv eccentric mitral regurgitation i s present. 19. [...] mitral valve is normal. Mitral Kait ve: Zcjf-fy-aubkjjxc eccentric mitral regurgitation is present. Tricuspid Valve: [...] maxP.08 mmHg TR Vmax: 2.7 4 m/s Certified Surgical Tech/First Assistant: MOO Authenticated by: Robel Yusuf MD Report [...] 17. The mitral valve is normal. 18. Qlkb-bo-stear ate eccentric mitral regurgitation is present. 19. [...] pleural spac e is punctured with an 8-Cook Islander thoracentesis catheter. Fluid is aspirated without [...] earlier and charting completed later Dictation software, [id number], used which may contain error for similar [...] 0632 Date of Service: 06/01/1835 Status: Signed Autocad Technician: Aury Eldridge RN (Registered Nurse) Pts VSS. [...] 05/31/181840 Date of Service: 05/31/181840 Status: Signed Autocad Technician: Romelia Cooley RN (Registered Nurse) End of shift chart review complete. Romelia Cooley RN koum, René Mckeon MD - 05/31/2018 11:32 AM PDTFormatting of this note might be different from the candice ginal. Progress Notes by René Anguiano MD at 05/31/18 113 Author: Reén Anguiano MD Service: Nephrology Author Type: Physician Filed: 05/31/18 1654 Date of Service: 05/31/18 113 Status: Addendum Autocad Technician: René Anguiano MD (Physician) Related Notes: Original [...] put on "an antibiotic" for pneumonia at [facility] ED. Was throwing up & could [...] the prelim submitted orders, MWF No acute GAMING TABLE OPERATOR indication ESTEFANY as indicated with HD [...] 9:42 AM PDT Progress Notes by Darell Kowalski MD at 05/31/18941 Author: Darell Kowalski MD Service: Hospitalist Author Type: Physician Filed: 05/31/18 0951 Date of Service: 05/31/18941 Status: Signed Autocad Technician: Darell Kowalski MD (Physician) [facility] Service: Hospitalist Progress Note Pt: Dara Louise AGE/SEX: 23 y.o. female ROOM: [address] [place] [address] : 1995 PCP: TIEN NICHOLSON ADMIT DATE: [...] Component Value Units Date/Time Culture, Body Fluid [[id number]] Collected: 05/26/18 1412 Specimen: Body Fluid from Pleural Fluid Updated: 05/30/18 0733 Specimen Description PLEURAL FLUID GRAM STAIN WBC'S SEEN GRAM STAIN NO ORGANISMS SEEN GRAM STAIN STAIN PERFORMED ON CYTOSPIN CULTURE NO GROWTH 4 DAYS Culture, Body Fluid [[id number]] Collected: 05/26/18 1513 Specimen: Other from Ascites Fluid Updated: 05/30/18 0732 Specimen Description ASCITES FLUID GRAM STAIN STAIN PERFORMED ON CYTOSPIN GRAM STAIN WBC'S SEEN GRAM STAIN NO EPITHELIAL CELLS SEEN GRAM STAIN NO ORGANISMS SEEN CULTURE NO GROWTH 4 DAYS Gram stain [[id number]] Collected: 05/29/18 1256 Specimen: Sputum from Thoracic Fluid Updated: 05/29/18 2339 Specimen Description THORACIC FLUID CULTURE 1+ WBC'S SEEN NO ORGANISMS SEEN Lactate dehydrogenase, body fluid [[id number]] Collected: 05/29/18 1256 Specimen: Body Fluid from Pleural, Right Updated: 05/29/18 1619 FLUID LDH 151 U/L Cholesterol, body fluid [[id number]] Collected: 05/29/18 1256 Specimen: Body Fluid from Pleural, Right Updated: 05/29/18 1619 FLUID CHOLESTEROL 56 mg/dL Sputum culture [[id number]] Collected: 05/27/182014 Specimen: Sputum from Sputum Updated: [...] 17. The mitral valve is normal. 18. Bejb-xw-rnzhq ate eccentric mitral regurgitation is present. 19. [...] clear straw-colored fluid. Signed b y: Quang uBstos Sign Date/Time: 05/29/2018 3:39 PM PROBLEM LIST [...] in any kind of distress. director of employer services to initiate the discharge plan. Possible [...] MD, FACP 05/31/2018 9:42 AM Dictation software, [id number], used which may contain error for similar [...] 05/31/18253 Date of Service: 05/31/18253 Status: Signed Autocad Technician: Nandini Robertson RN (Registered Nurse) Chart review completed. onver arturo Transaction, Provider Unknown - 05/30/2018 6:37 PM PDT Nurse Progress Note by Kyra Amador RN at 05/30/181836 Author: Kyra Amador RN Service: (none) Author Type: Registered Nurse Filed: 05/30/181842 Date of Service: 05/30/181836 Status: Signed Autocad Technician: Kyra Amador RN (Registered Nurse) VSS. Pt c/o abd cramping during dialysis which was treated with PRN tramadol. PRN phenergan x1, PRN zofran x1. Tolerated food well. Ambulated tena few times, tolerated well. Kyra Amador 05/30/18 6:42 PM Chart check complete. Laine, Darell Escalera MD - 05/30/2018 9:09 AM PDT Progress Notes by Darell Kowalski MD at 05/30/18908 Author: Darell Kowalski MD Service: Hospitalist Author Type: Physician Filed: 05/30/18 1243 Date of Service: 05/30/18 0909 Status: Signed Autocad Technician: Darell Kowalski MD (Physician) [facility] Service: Hospitalist Progress Note Pt: Dara Toño Louise AGE/SEX: 23 y.o. female ROOM: [facility]- : 1995 PCP: TIEN NICHOLSON [...] Component Value Units Date/Time Culture, Body Fluid [[id number]] Collected: 05/26/18 1412 Specimen: Body Fluid from Pleural Fluid Updated: 05/30/18 8993 Specimen Description PLEURAL FLUID GRAM STAIN WBC'S SEEN GRAM STAIN NO ORGANISMS SEEN GRAM STAIN STAIN PERFORMED ON CYTOSPIN CULTURE NO GROWTH 4 DAYS Culture, Body Fluid [[id number]] Collected: 05/26/18 1513 Specimen: Other from Ascites Fluid Updated: 05/30/18 0732 Specimen Description ASCITES FLUID GRAM STAIN STAIN PERFORMED ON CYTOSPIN GRAM STAIN WBC'S SEEN GRAM STAIN NO EPITHELIAL CELLS SEEN GRAM STAIN NO ORGANISMS SEEN CULTURE NO GROWTH 4 DAYS Gram stain [[id number]] Collected: 05/29/18 1256 Specimen: Sputum from Thoracic Fluid Updated: 05/29/18 2339 Specimen Description THORACIC FLUID CULTURE 1+ WBC'S SEEN NO ORGANISMS SEEN Lactate dehydrogenase, body fluid [[id number]] Collected: 05/29/18 1256 Specimen: Body Fluid from Pleural, Right Updated: 05/29/18 1619 FLUID LDH 151 U/L Cholesterol, body fluid [[id number]] Collected: 05/29/18 1256 Specimen: Body Fluid from Pleural, Right Updated: 05/29/18 1619 FLUID CHOLESTEROL 56 mg/dL Sputum culture [[id number]] Collected: 05/27/182014 Specimen: Sputum from Sputum Updated: [...] 17. The mitral valve is normal. 18. Xpfv-bt-ahktd ate eccentric mitral regurgitation is present. 19. [...] MD, FACP 05/30/2018 9:10 AM Dictation software, [id number], used which may contain error for similar [...] 05/30/18417 Date of Service: 05/30/18416 Status: Signed Autocad Technician: Nandini Robertson RN (Registered Nurse) Pt did well overnight. VSS. Chart review completed. Carolina Cantor, Medical Student - 05/29/2018 7:56 PM PDT Progress Notes by Carolina Mahmood DO at 05/29/181955 Author: Carolina Mahmood DO Service: Cardiology Author Type: Physician Filed: 05/29/182014 Date of Service: 05/29/181955 Status: Signed Autocad Technician: Carolina Mahmood DO (Physician) [facility] Service: Cardiology Progress Note Hospital Day: LOS: [...] the original. Nurse Progress Note by Flaco Mario RN at 05/29/181739 Author: Flaco Mario RN Service: (none) Author Type: Registered Nurse Filed: 05/29/181742 Date of Service: 05/29/181739 Status: Signed Autocad Technician: Flaco Mario RN (Registered Nurse) Pt VSS. Pt tolerated thoracentesis, initial bandage leaked through, pressure bandage applie d. Pt medicated for nausea x1 and pain x1. Pt states her breathing is starting to feel easie r. End of shift review complete FLACO MARIO RN Anthony Monteiro MD - 05/29/2018 1:43 PM PDTFormatting of this note might be different from the or iginal. Progress Notes by Anthony Belcher MD at 05/29/18 1342 Author: Anthony Belcher MD Service: Hospitalist Author Type: Physician Filed: 05/29/18 9983 Date of Service: 05/29/181342 Status: Signed Autocad Technician: Anthony Belcher MD (Physician) Hospitalist Progress Note Dara Louise 23 y.o. [id number] female [facility] Day: LOS: 3 days Patient Summary: 23-year-old female with past medical history of end-stage renal dis ease on hemodialysis Monday, hypertension, anemia of chronic disease who we nt [facility] [...] Value Units Date/Time Lactate dehydrogenase, body fluid [[id number]] Collected: 05/29/18 125 Specimen: Body Fluid from Pleural, Right Updated: 05/29/18 1315 Cholesterol, body fluid [[id number]] Collected: 05/29/18 125 Specimen: Body Fluid from Pleural, Right Updated: 05/29/18 1315 Gram stain [[id number]] Collected: 05/29/18 125 Specimen: Sputum from OTHR-w source desc (F6) Updated: 05/29/18 1309 Sputum culture [[id number]] Collected: 05/27/182014 Specimen: Sputum from Sputum Updated: 05/29/18 0947 Specimen Description SPUTUM GRAM STAIN LESS THAN 10 WBCS/LPF GRAM STAIN LESS THAN 10 SEC/LPF GRAM STAIN NO ORGANISMS SEEN CULTURE 1+ NORMAL UPPER RESPIRATORY ALESSANDRO HIV 1/2 Ab reflex [[id number]] Collected: 05/28/18 1236 Specimen: Blood Updated: 05/29/18 0942 HIV1/HIV2 NON REACTIVE Protime-INR [[id number]] Collected: 05/29/1852 Specimen: Blood Updated: 05/29/1840 INR 1.5 APTT [[id number]] Collected: 05/29/1852 Specimen: Blood Updated: 05/29/1840 APTT 29 seconds Culture, Body Fluid [[id number]] Collected: 05/26/18 1513 Specimen: Other from Ascites Fluid Updated: 05/29/18 0920 Specimen Description ASCITES FLUID GRAM STAIN STAIN PERFORMED ON CYTOSPIN GRAM STAIN WBC'S SEEN GRAM STAIN NO EPITHELIAL CELLS SEEN GRAM STAIN NO ORGANISMS SEEN CULTURE NO GROWTH 3 DAYS Culture, Body Fluid [[id number]] Collected: 05/26/18 1412 Specimen: Body Fluid from Pleural Fluid Updated: 05/29/18917 Specimen Description PLEURAL FLUID CULTURE NO GROWTH 3 DAYS Comprehensive metabolic panel [[id number]] (Abnormal) Collected: 05/29/18456 Specimen: Blood Updated: 05/29/18615 [...] mL/min/1.73m2 CBC W/Auto Diff (Reflex to Manual) [[id number]] (Abnormal) Collected: 05/29/18456 Specimen: Blood Updated: 05/29/18612 [...] 0.05 K/uL MORPHOLOGY 2+ hCG, serum, qualitative [[id number]] Collected: 05/28/18922 Specimen: Blood Updated: 05/28/181949 TEST,SERUM NEGATIVE C-reactive protein [[id number]] (Abnormal) Collected: 05/28/18922 Specimen: Blood Updated: 05/28/181940 CRP 5.1 (H) mg/dL Sedimentation rate, automated [[id number]] Collected: 05/28/18922 Specimen: Blood Updated: 05/28/18 1734 ESR 2 mm/Hr Hepatitis panel,acute [[id number]] Collected: 05/28/18 1236 Specimen: Blood Updated: 05/28/18 1650 HAV AB,IGM NON REACTIVE HEP B SURFACE AG NON REACTIVE ANTI HEP B CORE,IGM NON REACTIVE HEPATITIS C NON REACTIVE HEPATITIS INTERP No serologic evidence of HAV, HBV, or HCV infection. Troponin I [[id number]] Collected: 05/28/18922 Specimen: Blood Updated: 05/28/18 143 TROPONIN I 0.034 ng/mL Troponin I [[id number]] Collected: 05/28/18 1359 Specimen: Blood Updated: 05/28/18 143 TROPONIN I 0.037 ng/mL Renal function panel [[id number]] (Abnormal) Collected: 05/28/18 1209 Specimen: Blood from Blood Updated: 05/28/18 1302 SODIUM 141 mmol/L POTASSIUM 4.3 mmol/L CHLORIDE 101 mmol/L CO2 29 mmol/L ANION GAP AGAP 15 mmol/L GLUCOSE 78 mg/dL BUN 43 (H) mg/dL CREATININE 7.97 (H) mg/dL CALCIUM 9.1 mg/dL Albumin 3.6 g/dL PHOSPHORUS 6.3 (H) mg/dL EGFR 6 (L) mL/min/1.73m2 CBC W/Auto Diff (Reflex to Manual) [[id number]] (Abnormal) Collected: 05/28/18922 Specimen: Blood Updated: 05/28/18 [...] 0.05 K/uL MORPHOLOGY 1+ Comprehensive metabolic panel [[id number]] (Abnormal) Collected: 05/28/18922 Specimen: Blood Updated: 05/28/18 [...] (H) U/L EGFR 6 (L) mL/min/1.73m2 TSH [[id number]] Collected: 05/28/18922 Specimen: Blood Updated: 05/28/18 1210 TSH 1.270 uIU/mL Pathologist consult [[id number]] Collected: 05/26/18 1412 Updated: 05/28/18 1113 Pathologist Consult -- Hepatitis panel, chronic [[id number]] (Abnormal) Collected: 05/27/18 1758 Updated: 05/27/18 203 Hep A Total Ab REACTIVE (A) HEP B SURFACE AG NON REACTIVE HEP B CORE AB,TOTAL NON REACTIVE HEP B SURFACE ANTIBODY 3.27 (H) IV HEPATITIS C NON REACTIVE HEPATITIS INTERP Current or past HAV infection. Past HBV infection or vaccination. No ser ologic evidence of HCV infection. CBC w/auto diff (reflex to manual) [[id number]] (Abnormal) Collected: 05/27/18 0425 Specimen: Blood Updated: [...] K/uL MORPHOLOGY 2+ Platelet Estimate DECREASED Phosphorus [[id number]] (Abnormal) Collected: 05/27/18424 Specimen: Blood Updated: 05/27/18628 PHOSPHORUS 8.0 (H) mg/dL Basic Metabolic Panel [[id number]] (Abnormal) Collected: 05/27/18424 Specimen: Blood Updated: 05/27/18628 SODIUM 135 mmol/L POTASSIUM 5.9 (H) mmol/L CHLORIDE 96 (L) mmol/L CO2 25 mmol/L ANION GAP AGAP 20 mmol/L GLUCOSE 74 mg/dL BUN 51 (H) mg/dL CREATININE 9.2 (H) mg/dL BUN/CREAT 6 CALCIUM 9.4 mg/dL EGFR 5 (L) mL/min/1.73m2 Magnesium [[id number]] (Abnormal) Collected: 05/27/18424 Specimen: Blood Updated: 05/27/18628 MAGNESIUM 2.7 (H) mg/dL Brain natriuretic peptide [[id number]] (Abnormal) Collected: 05/27/18424 Specimen: Blood Updated: 05/27/1846 BRAIN NATRIURETIC PEPTIDE 1,153.92 (H) pg/mL Respiratory Filmarray [[id number]] (Abnormal) Collected: 05/26/181805 Specimen: Nasopharynx/Oropharynx Updated: 05/26/182141 [...] performed by Molecular Methodology MRSA by PCR [[id number]] Collected: 05/26/181805 Specimen: Nasopharyngeal from Nares(Nose) Updated: 05/26/182025 SOURCE NARES(NOSE) MRSA PCR NEGATIVE Procalcitonin [[id number]] (Abnormal) Collected: 05/26/181726 Updated: 03/23/19 1839 PROCALCITONIN 0.76 (H) ng/mL Albumin, Body Fluid [[id number]] Collected: 05/26/181411 Specimen: Body Fluid from Lung, Right Lower Lobe Updated: 05/26/18 172 FLUID ALBUMIN 2.3 g/dL Total Protein, Body Fluid [[id number]] Collected: 05/26/181411 Specimen: Body Fluid from Lung, Right Lower Lobe Updated: 05/26/18 172 FLUID TOTAL PROTEIN 4.2 g/dL FLUID TP SOURCE PLEURAL FLUID Cell count, Body Fluid [[id number]] Collected: 05/26/181411 Specimen: Body Fluid from Lung, Right Lower Lobe Updated: 05/26/18 170 FLUID TYPE PLEURAL FLUID COLOR SAMMIE APPEARANCE CLOUDY RBC'S 3,000 /mm3 TOTAL NUCLEATED CELLS 253 /mm3 NEUTROPHILS 22 % LYMPHOCYTES 8 % MONOCYTES/MACROPHAGES 65 % Mesothelial Cells 5 % CELLS COUNTED 100 pH, Body Fluid [[id number]] Collected: 05/26/181411 Specimen: Body Fluid from Lung, [...] 17. The mitral valve is normal. 18. Ztya-nf-fpernlrb eccentric mitral regurgitation i s present. 19. [...] mitral valve is normal. Mitral Kait ve: Axug-dt-rivrekrf eccentric mitral regurgitation is present. Tricuspid Valve: [...] m/s LVOT VTI: 13.50 cm MV A Shhaid: 0.54 m/s MV DecT: 117.65 ms M V E Shahid: 0.80 m/s MV E/A Ratio: 1.46 Septal e': 0.03 m/s Septal E/e': 26.26 Lateral e': 0.04 m/s Lateral E/e': 16.81 RV S': 0.07 m/s TR maxP.08 mmHg TR Vmax: 2.7 4 m/s Certified Surgical Tech/First Assistant: MOO Authenticated by: Robel Yusuf MD Report [...] 17. The mitral valve is normal. 18. Odyh-gx-exclb ate eccentric mitral regurgitation is present. 19. [...] Acute systolic CHF (congestive heart failure) ([facility]) Transaminitis ASSESSMENT & PLAN Bilateral pleural [...] I discussed the case with Dr. Charis iVllasenor pulmonary yesterdayo who recommended u ltrasound-guided thoracentesis [...] prophylaxis on heparin ANTHONY BELCHER MD 05/29/2018 koum, René Mckeon MD - 0 05/29/2018 7:26 AM PDT Progress Notes by René Anguiano MD at 05/29/18725 Author: René Anguiano MD Service: Nephrology Author Type: Physician Filed: 05/31/18 6521 Date of Service: 05/29/18725 Status: Addendum Autocad Technician: René Anguiano MD (Physician) Related Notes: Original Note by KRISHNA Waters (Nurse Practitioner) filed at 05/05 08/22 2596 Hospital Problem List: Active Problems: ESRD on [...] put on "an antibiotic" for pneumonia at [facility] ED. Was throwing up & could [...] the prelim submitted orders, MWF No acute GAMING TABLE OPERATOR indication ESTEFANY as indicated with HD [...] 0555 Date of Service: 05/29/18553 Status: Signed Autocad Technician: Vernell Weston RN (Registered Nurse) End of [...] 05/28/181940 Date of Service: 05/28/181939 Status: Signed Autocad Technician: Saundra Hartley RN (Registered Nurse) No acute [...] 5:21 PM PDT Nurse Progress Note by Cadyen Caceres RN at 05/28/181720 Author: Cayden Caceres RN Service: Nephrology Author Type: Registered Nurse Filed: 05/28/181721 Date of Service: 05/28/181720 Status: Signed Autocad Technician: Cayden Caceres RN (Registered Nurse) UF 2 L with HD today. nthony Belcher MD - 05/28/2018 12:26 PM PDTFormatting of this note might be different from the or iginal. Progress Notes by Anthony Belcher MD at 05/28/18 1226 Author: Anthony Belcher MD Service: Hospitalist Author Type: Physician Filed: 05/28/18 1233 Date of Service: 05/28/18 1226 Status: Signed Autocad Technician: Anthony Belcher MD (Physician) Hospitalist Progress Note Dara Louise 23 y.o. [phone] [id number] female [facility] Day: LOS: 2 days Patient Summary: 23-year-old female with past medical history of end-stage renal dis ease on hemodialysis Monday, hypertension, anemia of chronic disease who we nt to [facility] [...] Component Value Units Date/Time Culture, Body Fluid [[id number]] Collected: 05/26/18 0961 Specimen: Other from Ascites Fluid Updated: 05/28/18 1225 Specimen Description ASCITES FLUID GRAM STAIN STAIN PERFORMED ON CYTOSPIN GRAM STAIN WBC'S SEEN GRAM STAIN NO EPITHELIAL CELLS SEEN GRAM STAIN NO ORGANISMS SEEN CULTURE NO GROWTH 2 DAYS Culture, Body Fluid [[id number]] Collected: 05/26/18 141 Specimen: Body Fluid from Pleural Fluid Updated: 05/28/18 1223 Specimen Description PLEURAL FLUID CULTURE NO GROWTH 2 DAYS Comprehensive metabolic panel [[id number]] (Abnormal) Collected: 05/28/18922 Specimen: Blood Updated: 05/28/18 [...] (H) U/L EGFR 6 (L) mL/min/1.73m2 TSH [[id number]] Collected: 05/28/18922 Specimen: Blood Updated: 05/28/18 1210 TSH 1.270 uIU/mL Pathologist consult [[id number]] Collected: 05/26/18 141 Updated: 05/28/18 1113 Pathologist Consult -- Troponin I [[id number]] Collected: 05/28/18922 Specimen: Blood Updated: 05/28/18 1055 CBC W/Auto Diff (Reflex to Manual) [[id number]] Collected: 05/28/18922 Specimen: Blood Updated: 05/28/18 0939 Sputum culture [[id number]] Collected: 05/27/182014 Specimen: Sputum from Sputum Updated: 05/28/18902 Specimen Description SPUTUM GRAM STAIN LESS THAN 10 WBCS/LPF GRAM STAIN LESS THAN 10 SEC/LPF GRAM STAIN NO ORGANISMS SEEN CULTURE CULTURE IN PROGRESS Hepatitis panel, chronic [[id number]] (Abnormal) Collected: 05/27/181757 Updated: 05/27/182030 Hep A Total Ab REACTIVE (A) HEP B SURFACE AG NON REACTIVE HEP B CORE AB,TOTAL NON REACTIVE HEP B SURFACE ANTIBODY 3.27 (H) IV HEPATITIS C NON REACTIVE HEPATITIS INTERP Current or past HAV infection. Past HBV infection or vaccination. No ser ologic evidence of HCV infection. CBC w/auto diff (reflex to manual) [[id number]] (Abnormal) Collected: 05/27/18424 Specimen: Blood Updated: 05/27/18 [...] K/uL MORPHOLOGY 2+ Platelet Estimate DECREASED Phosphorus [[id number]] (Abnormal) Collected: 05/27/18424 Specimen: Blood Updated: 05/27/18 0629 PHOSPHORUS 8.0 (H) mg/dL Basic Metabolic Panel [[id number]] (Abnormal) Collected: 05/27/18424 Specimen: Blood Updated: 05/27/1829 SODIUM 135 mmol/L POTASSIUM 5.9 (H) mmol/L CHLORIDE 96 (L) mmol/L CO2 25 mmol/L ANION GAP AGAP 20 mmol/L GLUCOSE 74 mg/dL BUN 51 (H) mg/dL CREATININE 9.2 (H) mg/dL BUN/CREAT 6 CALCIUM 9.4 mg/dL EGFR 5 (L) mL/min/1.73m2 Magnesium [[id number]] (Abnormal) Collected: 05/27/18424 Specimen: Blood Updated: 05/27/18 0629 MAGNESIUM 2.7 (H) mg/dL Brain natriuretic peptide [[id number]] (Abnormal) Collected: 05/27/18424 Specimen: Blood Updated: 05/27/18 0546 BRAIN NATRIURETIC PEPTIDE 1,153.92 (H) pg/mL Respiratory Filmarray [[id number]] (Abnormal) Collected: 05/26/181805 Specimen: Nasopharynx/Oropharynx Updated: 05/26/182141 [...] performed by Molecular Methodology MRSA by PCR [[id number]] Collected: 05/26/18 180 Specimen: Nasopharyngeal from Nares(Nose) Updated: 05/26/182025 SOURCE NARES(NOSE) MRSA PCR NEGATIVE Procalcitonin [[id number]] (Abnormal) Collected: 05/26/18 1727 Updated: 05/26/18 1839 PROCALCITONIN 0.76 (H) ng/mL Albumin, Body Fluid [[id number]] Collected: 05/26/18 1412 Specimen: Body Fluid from Lung, Right Lower Lobe Updated: 05/26/18 1729 FLUID ALBUMIN 2.3 g/dL Total Protein, Body Fluid [[id number]] Collected: 05/26/18 1412 Specimen: Body Fluid from Lung, Right Lower Lobe Updated: 05/26/18 1729 FLUID TOTAL PROTEIN 4.2 g/dL FLUID TP SOURCE PLEURAL FLUID Cell count, Body Fluid [[id number]] Collected: 05/26/18 141 Specimen: Body Fluid from Lung, Right Lower Lobe Updated: 05/26/18 1708 FLUID TYPE PLEURAL FLUID COLOR SAMMIE APPEARANCE CLOUDY RBC'S 3,000 /mm3 TOTAL NUCLEATED CELLS 253 /mm3 NEUTROPHILS 22 % LYMPHOCYTES 8 % MONOCYTES/MACROPHAGES 65 % Mesothelial Cells 5 % CELLS COUNTED 100 pH, Body Fluid [[id number]] Collected: 05/26/18 1412 Specimen: Body Fluid from Lung, Right Lower Lobe Updated: 05/26/18 1508 FLUID PH 7.45 Procalcitonin [[id number]] (Abnormal) Collected: 05/26/18 1214 Updated: 05/26/18 1330 PROCALCITONIN 0.56 (H) ng/mL Cardiac Panel [[id number]] (Abnormal) Collected: 05/26/18 1214 Updated: 05/26/18 1312 [...] ng/mL CK-MB Index 2.7 Brain natriuretic peptide [[id number]] (Abnormal) Collected: 05/26/18 1214 Updated: 05/26/18 1254 [...] radiologist report and is used for image Setup Echo Cardiac Adult Complete Result Date: 05/27/2018 [...] 17. The mitral valve is normal. 18. Xjai-kv-howknwki eccentric mitral regurgitation i s present. 19. [...] mitral valve is normal. Mitral Kait ve: Lotf-ke-kfuwfnhh eccentric mitral regurgitation is present. Tricuspid Valve: [...] maxP.08 mmHg TR Vmax: 2.7 4 m/s Certified Surgical Tech/First Assistant: MOO Authenticated by: Robel Yusuf MD Report [...] 17. The mitral valve is normal. 18. Rmvx-ut-ifbnb ate eccentric mitral regurgitation is present. 19. [...] prophylaxis on heparin ANTHONY BELCHER MD 05/28/2018 onversion Transactio n, Provider Unknown - 05/28/2018 7:04 AM PDT Nurse Progress Note by Timothy Butler RN at 05/28/1804 Author: Timothy Butler RN Service: (none) Author Type: Registered Nurse Filed: 05/28/1808 Date of Service: 05/28/18703 Status: Signed Autocad Technician: Timothy Butler RN (Registered Nurse) Pt A&Ox4 [...] 05/27/181957 Date of Service: 05/27/181954 Status: Signed Autocad Technician: Vernell Weston RN (Registered Nurse) Called into [...] 05/27/181924 Date of Service: 05/27/181922 Status: Signed Autocad Technician: Saundra Hartley RN (Registered Nurse) Pt has [...] Author: DORON Ashby Service: (none) Author Type: Metal Or Wood Blocker Filed: 05/27/181533 Date of Service: 05/27/181529 Status: Signed Autocad Technician: DORON Ashby (Metal Or Wood Blocker) 05/27/181529 Discharge Planning Evaluation Admitting Diagnosis SOB [...] Patient/Family concerns No Met with Dara Louise ([phone]) and discussed discharge planning. Pt is a 23 y.o., female who resides alone in [place], [place]. Pt states that she has supportive family and frie nds. Pt's mother lives 50 miles away; pt's sister lives 15 minutes away. Pt is independent and does not have a caregiver. Patient's PCP is: TIEN NICHOLSON Patient's insurance: Medicare and Medicaid Coverage concerns: None Medication coverage/concerns: None Community resources utilized / needed: Pt does outpatient dialysis at [facility] in [facility] on Monday, Monday and Monday Assistance [...] the or iginal. Progress Notes by Anthony Belcher MD at 05/27/18 1325 Author: Anthony Belcher MD Service: Hospitalist Author Type: Physician Filed: 05/27/18 2635 Date of Service: 05/27/18 1325 Status: Signed Autocad Technician: Anthony Belcher MD (Physician) Hospitalist Progress Note Dara Lundberg Shiraz 23 y.o. [id number] female [facility] Day: LOS: 1 day Patient Summary: 23-year-old female with past medical history of end-stage renal dis ease on hemodialysis Monday, hypertension, anemia of chronic disease who we nt to [facility] [...] Date/Time CBC w/auto diff (reflex to manual) [[id number]] (Abnormal) Collected: 05/27/18424 Specimen: Blood Updated: 05/27/18710 [...] K/uL MORPHOLOGY 2+ Platelet Estimate DECREASED Phosphorus [[id number]] (Abnormal) Collected: 05/27/18424 Specimen: Blood Updated: 05/27/18628 PHOSPHORUS 8.0 (H) mg/dL Basic Metabolic Panel [[id number]] (Abnormal) Collected: 05/27/18424 Specimen: Blood Updated: 05/27/18628 SODIUM 135 mmol/L POTASSIUM 5.9 (H) mmol/L CHLORIDE 96 (L) mmol/L CO2 25 mmol/L ANION GAP AGAP 20 mmol/L GLUCOSE 74 mg/dL BUN 51 (H) mg/dL CREATININE 9.2 (H) mg/dL BUN/CREAT 6 CALCIUM 9.4 mg/dL EGFR 5 (L) mL/min/1.73m2 Magnesium [[id number]] (Abnormal) Collected: 05/27/18424 Specimen: Blood Updated: 05/27/18 0629 MAGNESIUM 2.7 (H) mg/dL Brain natriuretic peptide [[id number]] (Abnormal) Collected: 05/27/18424 Specimen: Blood Updated: 05/27/18 0546 BRAIN NATRIURETIC PEPTIDE 1,153.92 (H) pg/mL Respiratory Filmarray [[id number]] (Abnormal) Collected: 05/26/181805 Specimen: Nasopharynx/Oropharynx Updated: 05/26/182141 [...] performed by Molecular Methodology MRSA by PCR [[id number]] Collected: 05/26/181805 Specimen: Nasopharyngeal from Nares(Nose) Updated: 05/26/182025 SOURCE NARES(NOSE) MRSA PCR NEGATIVE Procalcitonin [[id number]] (Abnormal) Collected: 05/26/18 1727 Updated: 05/26/18 183 PROCALCITONIN 0.76 (H) ng/mL Culture, Body Fluid [[id number]] Collected: 05/26/18 141 Specimen: Body Fluid from Pleural Fluid Updated: 05/26/18 181 Pathologist consult [[id number]] Collected: 05/26/181411 Updated: 05/26/18 174 Albumin, Body Fluid [[id number]] Collected: 05/26/181411 Specimen: Body Fluid from Lung, Right Lower Lobe Updated: 05/26/18 172 FLUID ALBUMIN 2.3 g/dL Total Protein, Body Fluid [[id number]] Collected: 05/26/18 1412 Specimen: Body Fluid from Lung, Right Lower Lobe Updated: 05/26/18 1729 FLUID TOTAL PROTEIN 4.2 g/dL FLUID TP SOURCE PLEURAL FLUID Cell count, Body Fluid [[id number]] Collected: 05/26/18 1412 Specimen: Body Fluid from Lung, Right Lower Lobe Updated: 05/26/18 1708 FLUID TYPE PLEURAL FLUID COLOR SAMMIE APPEARANCE CLOUDY RBC'S 3,000 /mm3 TOTAL NUCLEATED CELLS 253 /mm3 NEUTROPHILS 22 % LYMPHOCYTES 8 % MONOCYTES/MACROPHAGES 65 % Mesothelial Cells 5 % CELLS COUNTED 100 Culture, Body Fluid [[id number]] Collected: 05/26/18 1513 Specimen: Other from Ascites Fluid Updated: 05/26/18 1631 Specimen Description ASCITES FLUID GRAM STAIN STAIN PERFORMED ON CYTOSPIN GRAM STAIN WBC'S SEEN GRAM STAIN NO EPITHELIAL CELLS SEEN GRAM STAIN NO ORGANISMS SEEN CULTURE PENDING pH, Body Fluid [[id number]] Collected: 05/26/18 141 Specimen: Body Fluid from Lung, Right Lower Lobe Updated: 05/26/18 1508 FLUID PH 7.45 Procalcitonin [[id number]] (Abnormal) Collected: 05/26/18 1214 Updated: 05/26/18 1330 PROCALCITONIN 0.56 (H) ng/mL Cardiac Panel [[id number]] (Abnormal) Collected: 05/26/18 1214 Updated: 05/26/18 1312 [...] ng/mL CK-MB Index 2.7 Brain natriuretic peptide [[id number]] (Abnormal) Collected: 05/26/18 1214 Updated: 05/26/18 1254 [...] radiologist report and is used for image [employer] only PROBLEM LIST Active Problems: ESRD on [...] prophylaxis on heparin ANTHONY BELCHER MD 05/27/2018 onversion Transactio n, Provider Unknown - 05/27/2018 5:44 AM PDT Nurse Progress Note by Vernell Weston RN at 05/27/18543 Author: Vernell Weston RN Service: (none) Author Type: Registered Nurse Filed: 05/27/18546 Date of Service: 05/27/18543 Status: Signed Autocad Technician: Vernell Weston RN (Registered Nurse) End of shift summary. Patient continues to complain of pain and nausea on and off. Administ ering pain medication and zofran per orders. Patient became itchy after IV rocephin was give n. Notified Dr Kowalski. IV benadryl given times one per orders. [...] 05/26/181950 Date of Service: 05/26/181947 Status: Signed Autocad Technician: Saundra Hartley, RN (Registered Nurse) Pt complained [...] afebrile. End of shift audit complete. George Hartley, RN Electronically signed by [facility] Transaction, Provider at 10/13/2018 8:52 PM PDTConver arturo Transaction, Provider Unknown - 05/26/2018 6:05 PM PDT Progress Notes by Jae Gutierres RPH at 05/26/181804 Author: Jae Gutierres RPH Service: Pharmacy Author Type: Pharmacist Filed: 05/26/181804 Date of Service: 05/26/181804 Status: Signed Autocad Technician: Jae Gutierres RPH (Pharmacist) Renal Dosing Monitoring: [...] documented in this encounter Results External Lab: LAKHIWNDER (06/01/2018 4:43 AM PDT) + + +---- [...] | | | | | at [facility], [address] | | | | | | [facility], | | | | | | [place] [address] | | | | | |Testing performed at [facility], [address] [facility], [place] [address] | | | | | | | [...] | | | | performed at [facility], [address] | | | | | | [facility], | | | | | | [place] [address] | | | | + + [...] | | | | | at [facility], [address] | | | | | | [facility], | | | | | | [place] [address] | | | | | |Testing performed at [facility], [address] [place] [address] | | | | | | | [...] | | | | performed at [facility], [address] | | | | | | [facility], | | | | | | [place] [address] | | | | + + + [...] + + + | Red Blood | 2.91 (L) | 3.7 0 - [...] | | | | | at [facility], [address] | | | | | | [facility], | | | | | | [place] [address] | | | | | |Testing performed at [facility], [address] [place] [address] | | | | | | | [...] | | | | | | MDRD IDWI traceable | | | | | | equation.Testing | | | | | | performed at [facility], [address] | | | | | | [facility], | | | | | | [place] [address] | | | | + + + [...] | EXTERNAL LAB | | not a bilingual hr generalist validated sample type for this method. No reference | | | ranges have been established. Testing performed at [facility], [address] | | | [place] [address] | | + + + + +---------+ [...] EXTERNAL LAB | | is not a bilingual hr generalist validated sample type for this method. No | | | reference ranges have been established. Testing performed at [facility], | | | [address] [place] [address] | | + + + + +---------+ [...] | | space is punctured with an 8-Cook Islander thoracentesis catheter. Fluid is | | [...] the pleural space is punctured with an 8-Cook Islander | | thoracentesis catheter. Fluid is [...] | | | Patient | performed at [facility];[address] | | LAB | | | | [address] [facility];[place], [place] | | | | | | [address] | | | | + + + [...] | | | | | | [address];[place], [place] | | | | | | [address] | | | | + + + [...] + +---------+ + + External Lab: LAKHWINDER (05/29/2018 4:57 AM PDT) + + +---- [...] + + + | Red Blood | 3.30 (L) | 3.7 0 - [...] | | | | | at [facility], [address] | | | | | | [facility], | | | | | | [place] [address] | | | | | |Testing performed at [facility], [address] [place] [address] | | | | | | | [...] | | | | performed at [facility], [address] | | | | | | [facility], | | | | | | [place] [address] | | | | + + + [...] [address] | | | | | | [address];[place] [address] | | | | + + + [...] | | | | | | [facility], [address] [facility] | | | | | | [address], [place] | | | | | | [address] | | | | + + + [...] | | | | performed at [facility], [address] | | | | | | [facility], | | | | | | [place] [address] | | | | + + + [...] [facility];[address] | | | | | | [facility];[place], [place] | | | | | | [address] | | | | + + + [...] | | | | | leadsConfirmed by EWER, | | | | | | JESSICA ([id number]) on 05/29/2018 | | | | | | 1:05:04 PM | | | | + + + + + + + + | Specimen | + + | | + + + + + | Narrative | Performed At | + + + | Historically converted procedure from [facility] | EXTERNAL LAB | + + + [...] | | [facility];[address] [place] [address] | | | | | | [facility];[place] [address] | | | | + + + [...] | | | | performed at [facility], [address] | | LAB | | | | [facility], | | | | | | [place] [address] | | | | + + + [...] + + + | Red Blood | 3.25 (L) | 3.7 0 - [...] | | | | | at [facility], [address] | | | | | | [facility], | | | | | | [place] [address] | | | | | |Testing performed at [facility], [address] [facility] [place] [address] | | | | | | | [...] | | | | performed at [facility], [address] | | LAB | | | | [address], | | | | | | [place] [address] | | | | + + + [...] | | | QUALITATIVE | performed at [facility], [address] | | LAB | | | | [address] [facility], | | | | | | [place] [address] | | | | + + + [...] | | | | performed at [facility], [address] | uIU/mL | LAB | | | | [address], | | | | | | [place] [address] | | | | + + + [...] | | | | performed at [facility], [address] | | | | | | [facility], | | | | | | [place] [address] | | | | + + + [...] | ORDERING PHYSICIAN: Maria Luisa ALMEIDA, Aneudy L PATIENT NAME: | EXTERNAL LAB | | [...] | | | preparation was performed by [email or web address], [facility] [address] | | | [place] [address] (Certified Retinal Angiographer: Matt Claudio D.O.; | | | CLIA#: [id number]). Professional interpretation was performed by | | | [email or web address], [facility], [facility] [address] | | | [place] [address] (Certified Retinal Angiographer: Daniel Larson M.D.; | | | CLIA#: [id number]).6 Diagnostician: Marie BROOKS ([facility]) | | | Air Conditioning Mechanic Diagnostician: Anahy Da Silva MD Pathologist | [...] | | | | | | [facility], [address] [facility] | | | | | | [address], [place] | | | | | | [address] | | | | + + + [...] valve is normal. 18. | | | Dtll-yx-clteoqey eccentric mitral regurgitation is present. 19. | [...] valve is normal. 18. | | | Okvr-tl-awbbqokl eccentric mitral regurgitation is present. 19. | [...] is | | | normal. Mitral Valve: Jkhs-zj-dbvupaap eccentric mitral regurgitation | | | is [...] TR Vmax: 2.74 m/s | | | Certified Surgical Tech/First Assistant: MOO Authenticated by: Robel Yusuf MD Report | | | Date/Time: 05-27-2018 13:59:57 | | + + + + + | Procedure Note | + + | Cedric, Rad Conversion - 10/16/2018 9:43 PM PDT Patient Name: Amira LOUISE | | : 1995 Performing Physician: Robel [...] aortic stenosis.17. The mitral valve is normal.18. Jdbs-rh-ufxfcxga | | eccentric mitral regurgitation is present.19. [...] | | arch are normal.26. No mass pjladovxfe06. No clot visualized FINDINGS--------ECG | | rhythm: [...] mitral valve is normal.Mitral Valve: | | Fmmz-aa-apomxsxn eccentric mitral regurgitation is present.Tricuspid Valve: Severe [...] mlLAESV Index (A-L): 30.43 ml/m2LAAs A2C: 20.97 [id number] | | A-L A2C: 65.71 mlLALs A2C: 5.68 cmLAAs A4C: 19.94 bd3YEHQU A-L A4C: 60.20 mlLALs | | A4C: 5.60 cmTAPSE: 1.58 cmHR: 79.62 BPMAV maxP.06 mmHgAV meanP.71 | | mmHgAV Vmax: 1.23 m/Elizabeth Vmean: 0.92 m/Elizabeth VTI: 20.07 cmAVA Vmax: 1.74 cm2AVA | | (VTI): 1.93 hk1YNYK Vmax: 0.00 cm2/m2AVAI (VTI): 0.00 cm2/m2LVOT maxP.22 [...] maxP.08 | | mmHgTR Vmax: 2.74 m/s Certified Surgical Tech/First Assistant: Ronyhenticated by: Robel Yusuf [facility] | | Date/Time: 05-27-2018 13:59:57 IMPRESSION: 1. [...] The mitral valve is | | normal.18. Xasn-ml-myfadbky eccentric mitral regurgitation is present.19. Severe | [...] and aortic arch are normal.26. No mass bskpiclxbz22. No clot visualized | |LVPWd: 1.27 cm [...] |TR Vmax: 2.74 m/s | | | |Certified Surgical Tech/First Assistant: MW | |Authenticated by: Robel Yusuf MD [...] The mitral valve is normal. | |18. Neoi-ov-uiytclra eccentric mitral regurgitation is present. | |19. [...] Steele - 10/16/2018 9:43 PM PDT CHEST TWO [...] + + + | Red Blood | 3.48 (L) | 3.70 - 5.10 [...] [address] | | | | | | Bl;[place] [address] | | | | + + + [...] | | | | performed at [facility], [address] | | LAB | | | | [address], | | | | | | [place] [address] | | | | + + + [...] | | [facility];[address] | | | | | | [address];[place] [address] | | | | + + + [...] | | | | performed at [facility], [address] | | LAB | | | | [address], | | | | | | [place] [address] | | | | + + + [...] | | | | performed at [facility], [address] | | | | | | [facility], | | | | | | [place] [address] | | | | + + + [...] Methodology | | | Testing performed at [facility], [address] [place], [place] | | | [address] | | + + + + +---------+ [...] NEGATIVE Testing | | | performed at [facility];[address] [place] [address];[place] [address] | | + + + + +---------+ [...] | | | | | | at [facility];[address] [place] [address] | | | | | | [facility];[place] [address] | | | | + + + [...] RESULTS CALLED | | | TO DR. HUNTER IN ED AT 1705 BY LGJ CORRECTED ON 05/26 AT 1702: | | | PREVIOUSLY REPORTED <[id number] TOTAL NUCLEATED CELLS | | | 253 CORRECTED RESULTS CALLED TO DR. HUNTER IN ED AT | | | 1705 BY LGJ CORRECTED ON 05/26 AT 1702: PREVIOUSLY REPORTED 374 | | | NEUTROPHILS 22 | | | LYMPHOCYTES 8 | | | MONOCYTES/MACROPHAGES 65 Mesothelial | | | Cells 5 CELLS COUNTED | | | 100 Testing performed at [facility];[address] | | | [facility];[place] [address] | | + + + + +---------+ [...] | EXTERNAL LAB | | not a bilingual hr generalist validated sample type for this method. No reference | | | ranges have been established. Testing performed at [facility], [address] | | | [place] [address] FLUID TP SOURCE | | | PLEURAL FLUID Testing performed at [facility];[address] | | | [facility];[place] [address] | | + + + + +---------+ [...] | EXTERNAL LAB | | not a bilingual hr generalist validated sample type for this method. No | | | reference ranges have been established. Testing performed at [facility], | | | [address] [place] [address] | | + + + + +---------+ [...] EXTERNAL LAB | | Testing performed at [facility];[address] [place] [address];[place] [address] | | + + + + +---------+ [...] | | | | | | at [facility];[address] | | | | [address];[place] [address] | | | | + + + [...] | | | | | | at [facility];[address] [place] [address] | | | | | | [facility];[place] [address] | | | | + + + [...] + + + + + -+ | Red Blood | 3.32 (L) | 3.70 - 5.10 [...] | [facility];[address] [facility] [facility] | | | | | | Blvd;[place] [address] | | | | + + + [...]
--- OUTSIDE RECORDS SUMMARY | ~2019-07-14 | XMS | Encounter Summary ---
Demographics + + + | Address | [address] | | | [place] [address] | + + + | Home Phone [...] | Author | [facility] | | | and Josephana | + + + | Organization | [facility] [...] Providers + +------+ + | Care Cook Chef Name | Role | Phone | [...] | Encounter | JOY | MD Emanuel [address] | | | | | [address] | [facility] | | | | [address] | [place], [place] | | | | | [place], [place] | [address] | | | | | [address] | [phone] | | | | | [phone] | | | +--------+ + + + [...]
--- OUTSIDE RECORDS SUMMARY | ~2019-07-14 | XMS | Encounter Summary ---
Demographics + + + | Address | [address] | | | [place] [address] | + + + | Home Phone [...] | | | | | [place] [address] | | + + + + + | Thania Mallory | ECON | [address] | | | | | [place] [address] | | + + + + + | Deidra Weldon | ECON | [address] | | | | | [place] | | | | | [address] | | + + + + + Care Team Providers + +------+ + | Care Civil Engineer Helper Name | Role | Phone | [...] Nephrology | | Jonathan Gallagher, | T[facility] [address] | | | | | | MD [address] | Param Iraheta | | | | | | Keven | Alexander | | | | | | [facility] | Children's | | | | | | [address] | [address] | | | | | | [place] [address] | floor | | | | | | [place], | [place], [place] | | | | | | [place] | [address] | | | | | | [address] | Phone: | | | | | | Phone: | [phone] | | | | | | [phone] | | | | | | | Fax: | | | | | | | [phone] | | +--------+--------+ + + + + Encounter Details +--------+---------+ + + + | Date | Type | Department | Care Team | Description | +--------+---------+ + + + | 11/16/ | Office | Specialty Clinics | Sudhakar Joy | 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 [place] | ([place] | | | | [facility], | [address] | purpura) nephritis; | | | | [facility] | [phone] | Anemia of chronic | | | | [place], [place] | | kidney failure, | | | | [address] | Rtx, Pds [address] | unspecified stage | | | | [phone] | [address] | | | | | | [address] [place], [place] | | | | | | [address] | | +--------+---------+ + + + Social [...] soon. Have your friend call Brittney about [phone] Sudhakar Joy MD documented in this encounter [...] MD [facility] [address] [facility] [address] Mail code [facility] [place], [place] [phone] documented in this encounter Plan of Treatment +--------+ + + + + | Date | Type | Specialty | Care Team | Description | +--------+ + + + + | 05/04/ | Hospital | Adult Acute Care | El Starr MD | | | 2022 | Encounter | | [address] | | | | | | [place], [place] | | | | | | [address] | | | | | | [phone] | | | | | | | [...]
--- OUTSIDE RECORDS SUMMARY | ~2019-07-14 | XMS | Encounter Summary ---
Demographics + + + | Address | [address] | | | [place] [address] | + + + | Home Phone [...] | Author | [facility] | | | and Josephana | + + + | Organization | [facility] | [...] + +------+ + | Care Video Game Animator Name | Role | Phone | + [...] | NEPHROLOGY [address] | [address] | | | | | [address] | [address] [place] | | | | | [place], [place] | [place] [address] | | | | | [address] | [phone] | | | | | [phone] | | | +--------+ + + + [...]
--- OUTSIDE RECORDS SUMMARY | ~2019-07-14 | XMS | Encounter Summary ---
Demographics + + + | Address | [address] | | | [place] [address] | + + + | Home Phone [...] Author | [facility] | | | and Josephana | + + + | Organization | [facility] [...] | | + + +---------+ + | Saundar Jasso ECON | Unknown | | + + +---------+ + Care Team Providers + +------+ + | Care Foundry Manager Name | Role | Phone | + +------+ + | Jonathan Alonso MD | PCP | | + +------+ + Encounter Details +--------+ + + + + | Date | Type | Department | Care Team | Description | +--------+ + + + + | 03/27/ | Orders Only | [facility] | Rik Simon MD | | | 2014 | | VASCULAR SURGERY | [address] | | | | | ULTR[address] | [place], [place] | | | | | [address] | [address] | | | | | [place], [place] | [phone] | | | | | [address] | | | | | | [phone] | | | +--------+ + + + [...]
--- OUTSIDE RECORDS SUMMARY | ~2019-07-14 | XMS | Encounter Summary ---
Demographics + + + | Address | [address] | | | [place] [address] | + + + | Home Phone [...] Author | [facility] | | | and Josephana | + + + | Organization | [facility] [...] Team Providers + +------+ + | Care Hose Tubing Backer Name | Role | Phone | [...] | | [address] | [place], [address] | (Primary Dx) | | | | [place], [place] | [place], [place] | | | | | [address] | [address] | | | | | [phone] | | | +--------+ + + + [...]
--- OUTSIDE RECORDS SUMMARY | ~2019-07-14 | XMS | Encounter Summary ---
Demographics + + + | Address | [address] | | | [place] [address] | + + + | Home Phone [...] | | | | | [place] [address] | | + + + + + | Thania Mallory | ECON | [address] | | | | | [place] [address] | | + + + + + | Deidra Weldon | ECON | [address] | | | | | [place] | | | | | [address] | | + + + + + Care Team Providers + +------+ + | Care Personnel Recruiter Name | Role | Phone | [...] | | | | | [address] [facility] | [facility] | | | | | Park [facility], | [place], [place] | | | | | [place] [address] | [address] | | | | | [phone] | | | +--------+ + + + [...] Denise | | | | | | [place], [place] | | | | | | [address] | | | | | | [phone] | | | | | | | | +--------+ + + + + documented as of this encounter Visit Diagnoses Not on filedocumented in this encounter"
--- OUTSIDE RECORDS SUMMARY | ~2019-07-14 | XMS | Encounter Summary ---
Demographics + + + | Address | [address] | | | [place] [address] | + + + | Home Phone [...] | | | | | [place] [address] | | + + + + + | Thania Mallory | ECON | [address] | | | | | [place] [address] | | + + + + + | Deidra Weldon | ECON | [address] | | | | | [place] | | | | | [address] | | + + + + + Care Team Providers + +------+ + | Care Port Crane Operator Name | Role | Phone | + +------+ + | Shahid Camargo MD | PCP | | + +------+ + Encounter Details +--------+ + + + + | Date | Type | Department | Care Team | Description | +--------+ + + + + | 12/20/ | Hospital | Radiology at [facility] | | | | 2012 | Encounter | [address] | | | | | | [place] | | | | | | [facility], | | | | | | [address] [place] [address] | | | | | | [place], [place] | | | | | | [address] | | | | | | [phone] | | | +--------+ + + + [...] Camelia | | | | | | [place], [place] | | | | | | [address] | | | | | | [phone] | | | | | | | [...] | e | 9:29 AM | MEDICARE 8968 | procedure are in the | | [...] | | + +---------+ + + | [facility] DEPARTMENT OF | | | | | RADIOLOGY | | | | + +---------+ + + documented in this encounter Visit Diagnoses + + | Diagnosis | + + | 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
--- OUTSIDE RECORDS SUMMARY | ~2019-07-14 | XMS | Encounter Summary ---
Demographics + + + | Address | [address] | | | [place] [address] | + + + | Home Phone [...] | | | | | [place] [address] | | + + + + + | Thania Mallory | ECON | [address] | | | | | [place] [address] | | + + + + + | Deidra Weldon | ECON | [address] | | | | | [place] | | | | | [address] | | + + + + + Care Team Providers + +------+ + | Care Cigarette Package Examiner Name | Role | Phone | [...] | | | | | [address] [place], | [place], [place] | | | | | [place] [address] | [address] | | | | | [phone] | | | +--------+ + + + [...] Denise | | | | | | [place] | | | | | | [address] | | | | | | [phone] | | | | | | | | +--------+ + + + + documented as of this encounter Visit Diagnoses Not on filedocumented in this encounter"
--- OUTSIDE RECORDS SUMMARY | ~2019-07-14 | XMS | Encounter Summary ---
Demographics + + + | Address | [address] | | | [place] [address] | + + + | Home Phone [...] | | | | | [place] [address] | | + + + + + | Thania Mallory | ECON | [address] | | | | | [place] [address] | | + + + + + | Deidra Weldon | ECON | [address] | | | | | [place] | | | | | [address] | | + + + + + Care Team Providers + +------+ + | Care Bobbin Loose End Finder Name | Role | Phone | + [...] updated) | | | | Caro [address] [place], | [place], [place] | | | | | [place] [address] | [address] | | | | | [phone] | [phone] | | | | | | | [...] Denise | | | | | | [place] | | | | | | [address] | | | | | | [phone] | | | | | | | | +--------+ + + + + documented as of this encounter Visit Diagnoses Not on filedocumented in this encounter"
--- OUTSIDE RECORDS SUMMARY | ~2019-07-14 | XMS | Encounter Summary ---
Demographics + + + | Address | [address] | | | [place] [address] | + + + | Home Phone [...] | [facility] | | | and Josephana | + + + | Organization | [facility] | | | and [...] Team Providers + +------+ + | Care Rough Rice Tender Name | Role | Phone | [...] | | | | | | [place] | | | | | | | [...] + + | 02/24/ | Hospital | [facility] | Blake Chavarria | ESRD (end stage | | 2013 | Encounter | MED CTR OR INTRA OP | MD Antonieta, FACS [address] | renal disease) ([facility]) | | | | [address] | KEYSHA MCMULLEN [facility] | (Primary Dx) | | | | [place] | [place] [address] | | | | | [address] | [phone] | | | | | [phone] | | | +--------+ + + + [...] might be different f rom the original. [facility] POST-OP INSTRUCTIONS: Arterio-Venous Fistula 1. Keep [...] may interact with prescription medicines or other cfja-ilh-ncvuutp (OTC) drugs. The FDA recommends reading OTC medication labels careful ly to clearly understand the list of active ingredients, directions, and any precautions to help avoid taking too muchacetaminophen. If you have questions, ask your pharmacist or [facility] care provider. Managing Nausea Some people [...] or skin changes (rash, itching, or hives). 3762-8495 [employer]. [address] [place] [address], [place] [address]. All righ ts reserved. This information is [...] mL/min/1.73m2 | [facility] | | | BRUNEIAN | (<18). | | MEDICAL | | [...] | [address] | [place], [place] | [phone] | | [facility] | | [address] | | | - LABORATORY | | | | + + + + + | [address] | [address] | [place], [place] | | | [facility] | | [address], [facility] | | | - LABORATORY [...]
--- OUTSIDE RECORDS SUMMARY | ~2019-07-14 | XMS | Encounter Summary ---
Demographics + + + | Address | [address] | | | [place] [address] | + + + | Home Phone [...] | Author | [facility] | | | and Josephana | + + + | Organization | [facility] [...] Team Providers + +------+ + | Care Escrow Closer Name | Role | Phone | + [...] NEPHROLOGY [address] | M, DO [address] | | | | | [address] | [place] | | | | | [place], [place] | [place], [place] | | | | | [address] | [address] | | | | | [phone] | | | +--------+ + + + [...] [facility], dos: 02/12/17. [facility].Electronically signed by Marilyn Palumbo at 017 8:58 AM PSTdocumented in this encounter Plan of Treatment Not on filedocumented as of this encounter Visit Diagnoses Not on filedocumented in this encounter"
--- OUTSIDE RECORDS SUMMARY | ~2019-07-14 | XMS | Encounter Summary ---
[...] | | | | | [place] [address] | | + + + + + | Thania Mallory | ECON | [address] | | | | | [place] [address] | | + + + + + | Deidra Weldon | ECON | [address] | | | | | [place] | | | | | [address] | | + + + + + Care Team Providers + +------+ + | Care Head Of Digital Name | Role | Phone [...] erpretation | Cardiology at | [address] [facility] | disease (HCC) | | | | [place] | [address] | (Primary Dx) | | | | [facility] | [place], [place] | | | | | [address] | [address] | | | | | [place] | [phone] | | | | | [facility] | | | | | | [address] [place] [address] | | | | | | [place] [address] | | | | | | [phone] | | | +--------+ + + + [...] Denise | | | | | | [place], [place] | | | | | | [address] | | | | | | [phone] | | | | | | | [...] status | | | | | | ([facility]) Chronic | | | | | | kidney disease, | | | | | | stage V ([facility]) | | + +--------+ + + + documented in this encounter Visit Diagnoses + + | Diagnosis | + + | End-stage renal disease (HCC) - Primary End stage renal disease | + + documented in this encounter"
--- OUTSIDE RECORDS SUMMARY | ~2019-07-14 | XMS | Encounter Summary ---
Demographics + + + | Address | [address] | | | [place] [address] | + + + | Home Phone [...] | | | | | [place] [address] | | + + + + + | Thania Mallory | ECON | [address] | | | | | [place] [address] | | + + + + + | Deidra Weldon | ECON | [address] | | | | | [place] | | | | | [address] | | + + + + + Care Team Providers + +------+ + | Care Procedures Tech Name | Role | Phone [...] | | | MD [address] | [facility] | | | | | | Keven | [place] | | | | | | Hospital | Children's | | | | | | [address] | [address] | | | | | | [address] | floor | | | | | | [place], | [place], [place] | | | | | | [place] | [address] | | | | | | [address] | Phone: | | | | | | Phone: | [phone] | | | | | | [phone] | | | | | | | Fax: | | | | | | | [phone] | | +--------+--------+ + + + + Encounter Details +--------+---------+ + + + | Date | Type | Department | Care Team | Description | +--------+---------+ + + + | 01/20/ | Office | Specialty Clinics | Sudhakar Joy | HSP | | 2015 | Visit | at [facility] [address] | MD Emanuel [address] | (David | | | | [address] | [address] | purpura) nephritis | | | | [place] | [place], [place] | (Primary Dx); | | | | [facility], | [address] | Allergic purpura- | | | | [facility] floor | [phone] | MEDICARE 6415; | | | | [place], [place] | | Anemia of chronic | | | | [address] | | kidney failure, | | | | [phone] | | stage 5 (HCC); | | [...] MD Pediatric Nephrology and Hypertension Services [address] Mail code [facility] [place], [place] [id number] documented in this encounter Plan of Treatment +--------+ + + + + | Date | Type | Specialty | Care Team | Description | +--------+ + + + + | 05/04/ | Hospital | Adult Acute Care | El Starr MD | | | 2022 | Encounter | | [address] | | | | | | [place], [place] | | | | | | [address] | | | | | | [phone] | | | | | | | [...]
--- OUTSIDE RECORDS SUMMARY | ~2019-07-14 | XMS | Encounter Summary ---
Demographics + + + | Address | [address] | | | [place] [address] | + + + | Home Phone [...] | | | | | [place] [address] | | + + + + + | Thania Mallory | ECON | [address] | | | | | [place] [address] | | + + + + + | Deidra Weldon | ECON | [address] | | | | | [place] | | | | | [address] | | + + + + + Care Team Providers + +------+ + | Care Granulator Tender Name | Role | Phone | [...] | | | | | Caro [address] [place], | | | | | | [place] [address] | | | +--------+ + + + [...] Denise | | | | | | [place], [place] | | | | | | [address] | | | | | | [phone] | | | | | | | [...] [facility] - | [address], | [place] [address] | | | IMMUNOGENETICS/TRANS | [address] | | | | [facility] | | | | + + + + + documented in this encounter Visit Diagnoses Not on filedocumented in this encounter"
--- OUTSIDE RECORDS SUMMARY | ~2019-07-14 | XMS | Encounter Summary ---
Demographics + + + | Address | [address] | | | [place] [address] | + + + | Home Phone [...] [facility] | | | and Josephana | + + + | Organization | [facility] [...] Providers + +------+ + | Care Gas Worker Name | Role | Phone | [...] | | ([facility]) | [address] [place] | [place], | | | | | | [place], [place] | [place] [address] | | | | | | [address] | Phone: | | | | | | Phone: | [phone] | | | | | | [phone] | Fax: | | | | | | Fax: | [phone] | | | | | | [phone] | | +--------+ + + + + [...] M, DO | renal disease) ([facility]) | | | | [address] | [place], [address] | (Primary Dx) | | | | [place], [place] | [place], [place] | | | | | [address] | [address] | | | | | [phone] | | | +--------+ + + + [...]
--- OUTSIDE RECORDS SUMMARY | ~2019-07-14 | XMS | Encounter Summary ---
Demographics + + + | Address | [address] | | | [place] [address] | + + + | Home Phone [...] | | | | | [place] [address] | | + + + + + | Thania Mallory | ECON | [address] | | | | | [place] [address] | | + + + + + | Deidra Weldon | ECON | [address] | | | | | [place] | | | | | [address] | | + + + + + Care Team Providers + +------+ + | Care Packer Name | Role | Phone | [...] | | | | | Physician's | [place], [place] | | | | | Ifeanyi, [facility] floor | [address] | | | | | [place], [place] | [phone] | | | | | [address] | | | | | | [phone] | | | +--------+ + + + [...] [place] | | | | | | [address] | | | | | | [phone] | | | | | | | | +--------+ + + + + documented as of this encounter Visit Diagnoses Not on filedocumented in this encounter"
--- OUTSIDE RECORDS SUMMARY | ~2019-07-14 | XMS | Encounter Summary ---
Demographics + + + | Address | [address] | | | [place] [address] | + + + | Home Phone [...] | | | | | [place] [address] | | + + + + + | Thania Mallory | ECON | [address] | | | | | [place] [address] | | + + + + + | Deidra Weldon | ECON | [address] | | | | | [place] | | | | | [address] | | + + + + + Care Team Providers + +------+ + | Care Commissioned Police Officer Name | Role | Phone | [...] Transplant Services | RN [address] [facility] | list) | | | | [address] [place] | [facility] | | | | | [facility], | [place], [place] | | | | | [place] [address] | [address] | | | | | [phone] | | | +--------+ + + + [...] Denise | | | | | | [place], [place] | | | | | | [address] | | | | | | [phone] | | | | | | | | +--------+ + + + + documented as of this encounter Visit Diagnoses Not on filedocumented in this encounter"
--- OUTSIDE RECORDS SUMMARY | ~2019-07-14 | XMS | Encounter Summary ---
Demographics + + + | Address | [address] | | | [place] [address] | + + + | Home Phone [...] | | | | | [place] [address] | | + + + + + | Thania Mallory | ECON | [address] | | | | | [place] [address] | | + + + + + | Deidra Weldon | ECON | [address] | | | | | [place] | | | | | [address] | | + + + + + Care Team Providers + +------+ + | Care Director Of Veterans Affairs Name | Role | Phone | + [...] Nephrology at | MD Emanuel [address] [facility] | | | | | [place] | [facility] | | | | | [facility] | [place], [place] | | | | | [address] | [address] | | | | | [place] | [phone] | | | | | [facility], | | | | | | [address] [place] [address] | | | | | | [place], [place] | | | | | | [address] | | | | | | [phone] | | | +--------+ + + + [...] Denise | | | | | | [place], [place] | | | | | | [address] | | | | | | [phone] | | | | | | | | +--------+ + + + + documented as of this encounter Visit Diagnoses Not on filedocumented in this encounter"
--- OUTSIDE RECORDS SUMMARY | ~2019-07-14 | XMS | Encounter Summary ---
Demographics + + + | Address | [address] | | | [place] [address] | + + + | Home Phone [...] | | | | | [place] [address] | | + + + + + | Thania Mallory | ECON | [address] | | | | | [place] [address] | | + + + + + | Deidra Weldon | ECON | [address] | | | | | [place] | | | | | [address] | | + + + + + Care Team Providers + +------+ + | Care Traffic Controller Cable Name | Role | Phone | + [...] | | | [address] | [place] [address] | | | | | [address] [place], | [place], [place] | | | | | [place] [address] | [address] | | | | | [phone] | [phone] | | | | | | | [...] Denise | | | | | | [place], [place] | | | | | | [address] | | | | | | [phone] | | | | | | | | +--------+ + + + + documented as of this encounter Visit Diagnoses Not on filedocumented in this encounter"
--- OUTSIDE RECORDS SUMMARY | ~2019-07-14 | XMS | Encounter Summary ---
Demographics + + + | Address | [address] | | | [place] [address] | + + + | Home Phone [...] + + | Author | [facility] | | | and Josephana | + + + | Organization | [facility] | | | and Josephana | + + + | Address | Unknown | + + + | Phone | Unavailable | + + + Support + + +---------+ + | Name | Relationship | Address | Phone | + + +---------+ + | Thania Malolry | ECON | Unknown | | + + +---------+ + | Saundra Marlowjonatan | ECON | Unknown | | + + +---------+ + Care Team Providers + +------+ + | Care Animal Cop Name | Role | Phone | + [...] + | 03/05/ | Clinical | [facility] | Blake Chavarria | End stage renal | | 2013 | Support | SURGERY [address] | MD Antonieta, FACS [address] | failure on dialysis | | | | [place], [place] | [facility] | ([facility]) (Primary Dx) | | | | [address] | [place] [address] | | | | | [phone] | [phone] | | | | | | | [...]
--- OUTSIDE RECORDS SUMMARY | ~2019-07-14 | XMS | Encounter Summary ---
Demographics + + + | Address | [address] | | | [place] [address] | + + + | Home Phone [...] | | | | | [place] [address] | | + + + + + | Thania Mallory | ECON | [address] | | | | | [place] [address] | | + + + + + | Deidra Weldon | ECON | [address] | | | | | [place] | | | | | [address] | | + + + + + Care Team Providers + +------+ + | Care Detacker Name | Role | Phone | + [...] [address] | | | | | ([facility]) | Caro Chan | [place], | | | | | Allergic | [place], [place] | [place] | | | | | purpura | [address] | [address] | | | | | ([facility]) | Phone: | Phone: | | | | | | [phone] | [phone] | | | | | | Fax: | Fax: | | | | | | [phone] | [phone] | +--------+--------+ + + + + Encounter Details +--------+---------+ + + + | Date | Type | Department | Care Team | Description | +--------+---------+ + + + | 12/19/ | Office | Kidney Transplant | Clinic, [address] | Patient on | | 2012 | Visit | at Physician's | [address] [facility] | peritoneal dialysis | | | | [address] [facility] [place] | (HCC) (Primary Dx); | | | | [address] | [address] | Unspecified | | | | Physician's | | essential | | | | Pavilion, 2nd floor | | hypertension; HSP | | | | [place], [place] | | ([place] | | | | [address]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; | | | | [phone] | | Obesity (BMI | | | [...] on file Social History Narrative Lives in [place], [place] with father and step-mother; 2 dogs; [...] Transplant Selection Confer ence. El Starr MD vehicle sales professional, Division of Abdominal Organ Transplantation Professor of Urology CC: Sudhakar Joy MD [address] [place] [address] documented in this encoun ter Plan of Treatment +--------+ + + + + | Date | Type | Specialty | Care Team | Description | +--------+ + + + + | 05/04/ | Hospital | Adult Acute Care | El Starr MD | | | 2022 | Encounter | | [address] | | | | | | [place] | | | | | | [address] | | | | | | [phone] | | | | | | | [...]
--- OUTSIDE RECORDS SUMMARY | ~2019-07-14 | XMS | Encounter Summary ---
Demographics + + + | Address | [address] | | | [place] [address] | + + + | Home Phone [...] [facility] | | | and Josephana | + + + | Organization | [facility] | [...] Team Providers + +------+ + | Care Clamp Remover Name | Role | Phone | + +------+ + PCP | Unavailable | + +------+ + Encounter Details +--------+ + + + + | Date | Type | Department | Care Team | Description | +--------+ + + + + | 02/12/ | Hospital | [facility] | Nereida Roberson | | | 2008 | Encounter | HOSPITAL EMERGENCY | MD [address] | | | | | [place] [address] [place] | | | [address] [place], [place] | [place] [address] | | | | | [address] | [phone] | | | | | [phone] | | | +--------+ + + + [...]
--- OUTSIDE RECORDS SUMMARY | ~2019-07-14 | XMS | Encounter Summary ---
Demographics + + + | Address | [address] | | | [place] [address] | + + + | Home Phone [...] | Author | [facility] | | | and Josephana | + + + | Organization | [facility] | | | [...] Team Providers + +------+ + | Care Alarm Field Technician Name | Role | Phone | [...] + + | 01/07/ | Hospital | [facility] | Florian Nelson, | Hyperkalemia | | 2019 - | Encounter | [facility] | [address] | (Primary Dx); ESRD | | | | CARE FLOOR [address] | [place] [address] | needing dialysis | | 01/10/ | | [address] | [phone] | (FORM[facility]LY [facility]); Acute | | 2019 | | [place], [place] | | respiratory | | | | [address] | Herccristiana, Megan, DO | distress; Recurrent | | | | [phone] | [address] | right pleural | | | | | [place] [address] | effusion; Anemia in | | | | | [phone] | ESRD (end-stage | | | | | | renal disease) | | | | | Nicholas Sutton MD | ([facility]LY [facility]); At high risk | | | | | [address] | for electrolyte | | | | | [place] [address] | imbalance; Chronic | | | | | 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 We are always happy to be a [...] the advice of your doctor or health wound care center consultant. A special MedGuide will be given to you by the pharmacist with each prescription and refill . Be sure to read this information carefully each time. Talk to your refueling ramp supervisor regarding the use of this medicine in children. Special care may be needed. What side effects may I notice from receiving this medicine? Side effects that you should report to your doctor or health wound care center consultant as soon as p ossible: allergic reactions [...] attention (report to your doctor or health wound care center consultant if they continue or are bothersome): dizziness [...] this medicine? Tell your doctor or health wound care center consultant if your symptoms do not start to [...] dying should be reported to your health wound care center consultant right away. NOTE:This sheet is a summary. [...] was completed later after rounds. Dictation software, Auth0, was used which may contain error for [...] 1,600 mg Oral TID WC dextrose 10% upNereida doss RN - 01/09/2019 6:56 PM PSTPt has not had any further episodes of chest pain. Denies any SOB. Zo cory and prn oxy given x2 this shift. Vital signs stable. End of shift chart check complete. Nereida Coburn RN 01/09/19 18:57 upper , Nereida Cole RN - 01/09/2019 1:30 PM [id number] Pt c/o chest pain rated 9/10, described [...] orders at this time, however EKG ordered. demonstrator sewing techniques called and en route. 1340- EKG shows [...] was completed later after rounds. Dictation software, Auth0, was used which may contain error for [...] 10% heparin (dialysis) 500 Units/hr (01/09/19 0949) pPaty ashley DO - 01/09/2019 8:20 AM PST [facility] Adult Hospitalist Progress Note Hospital [...] [facility] that he had, potassium now wnl -Secondary [...] of transfusion at this time -Epogen per tower climber GI and DVT prophylaxis Paty Kline DO [...] was completed later after rounds. Dictation software, Auth0, was used which may contain error for [...] 10% heparin (dialysis) 500 Units/hr (01/08/19 0934) pPaty ashley DO - 01/08/2019 7:50 AM PST [facility] Adult Hospitalist Progress Note Hospital [...] [facility] that he had, potassium now 5.8 -Secondary [...] of transfusion at this time -Epogen per tower climber Hypoglycemia: -Likely secondary to insulin given for her hyperkalemia and decrease PO intake -Hypoglycemic protocol GI and DVT prophylaxis Paty Kline DO 01/08/2019 Piedad Vega MD - 01/07/2019 7:14 AM PST [facility] Service: Hospitalist Progress Note Hospital Day: LOS: 0 days SUBJECTIVE Patient Summary: From [facility] Dr. Martínez 01/07/19 The patient is a 23 y.o. female with significant past medical history of HSP nephritis, rig ht pleural effusions recurrent, thoracentesis, bacteremia, clotted hemodialysis catheter, no ncompliance, asthma who presents transferred from [facility] with hyperkalemia, hyperte nsion noncompliant with hemodialysis, [...] oxygen. Went to HD on Monday. HD M/W/F. Patient missed HD because she has a lot of going on in her life. Patient was treated for hyperkalemia in [facility] as her potassium was 6.8. The data from [facility] was a chest x-ray which shows motion [...] for input(s): IRON, TIBC, PCTSAT, FERRITIN, TSH, [id number], FOLATE in the last 168 hours. No [...] [facility] that he had, potassium now 5.8 -Secondary [...] of transfusion at this time -Epogen per tower climber Hypoglycemia: -Likely secondary to insulin given for her hyperkalemia and decrease PO intake -Hypoglycemic protocol GI and DVT prophylaxis Disposition: Code Status: Full Code Piedad Mosquera MD 01/07/2019 7:14 Megan Garza DO - 7:05 AM PSTSigned off to Dr Mosquera Chest x ray post thoracentesis by ED physician reveals possible right pneumothorax though a ppearance is atypical. Dr. Omar marquez, recommended a CT scan chest Dr Mosquera ordering the CT chest, patient stable on 4 liter, O2 needs has not increased sin ce admitted to the ER documented in this encou nter Plan of Treatment Not on filedocumented as [...] | | | POC | performed at [facility];[address] | | LABORATORY | | | | [address];[place] | | | | | | [address] | | | | + + + + + + + + | Specimen | + + | | + + + + + + + | Performing | Address | City/State/Zipcode | Phone Number | | Organization | | | | + + + + + | [facility] | [address] | [place] [address] | [phone] | + + + + + POC Glucose (01/10/2019 7:47 AM PST) + + + + + + | Component | Value | Ref Range | Performed | Pathologist | | | | | At | Signature | + + + + + + | Glucose, | 125 (H)Comment: Testing | 65 - 99 mg/dL | [facility] | | | POC | performed at [facility];[address] | | LABORATORY | | | | [address];[place] | | | | | | [address] | | | | + + + + + + + + | Specimen | + + | | + + + + + + + | Performing | Address | City/State/Zipcode | Phone Number | | Organization | | | | + + + + + | [facility] | [address] | [place] [address] | [phone] | + + + + + CBC [...] [facility] | | | | performed at [facility];[address] | | LABORATORY | | | | [address];[place], [place] | | | | | | [address] | | | | + + + + + + + + | Specimen | + + | Blood | + + + + + + + | Performing | Address | City/State/Zipcode | Phone Number | | Organization | | | | + + + + + | [facility] | [address] | [place] [address] | [phone] | + + + + + Phosphorus (01/10/2019 7:03 AM PST) + + + + + + | Component | Value | Ref Range | Performed | Pathologist | | | | | At | Signature | + + + + + + | Phosphorus | 5.4 (H)Comment: Testing | 2.3 - 4.8 mg/dL | [facility] | | | | performed at [facility];[address] | | LABORATORY | | | | [address];[place], [place] | | | | | | [address] | | | | + + + + + + + + | Specimen | + + | Blood | + + + + + + + | Performing | Address | City/State/Zipcode | Phone Number | | Organization | | | | + + + + + | [facility] | [address] [facility] | [place] [address] | [phone] | + + + + + Magnesium (01/10/2019 7:03 AM PST) + + + + + + | Component | Value | Ref Range | Performed | Pathologist | | | | | At | Signature | + + + + + + | Magnesium | 2.0Comment: Testing | 1.7 - 2.4 mg/dL | [facility] | | | | performed at [facility];[address] | | LABORATORY | | | | [address];[place], [place] | | | | | | [address] | | | | + + + + + + + + | Specimen | + + | Blood | + + + + + + + | Performing | Address | City/State/Zipcode | Phone Number | | Organization | | | | + + + + + | [facility] | [address] | [place] [address] | [phone] | + + + + + [facility] [place];[address] | | | | | | [facility];[place], [place] | | | | | | [address] | | | | + + + + + + + + | Specimen | + + | Blood | + + + + + + + | Performing | Address | City/State/Zipcode | Phone Number | | Organization | | | | + + + + + | [facility] | [address] | [place] [address] | [phone] | + + + + + POC [...] | | | POC | performed at [facility];[address] | | LABORATORY | | | | [address];[place], [place] | | | | | | [address] | | | | + + + + + + + + | Specimen | + + | | + + + + + + + | Performing | Address | City/State/Zipcode | Phone Number | | Organization | | | | + + + + + | [facility] | [address] | [place] [address] | [phone] | + + + + + POC [...] | | | POC | performed at [facility];[address] | | LABORATORY | | | | [address];[place] | | | | | | [address] | | | | + + + + + + + + | Specimen | + + | | + + + + + + + | Performing | Address | City/State/Zipcode | Phone Number | | Organization | | | | + + + + + | [facility] | [address] | [place] [address] | [phone] | + + + + + XR [...] | | PORTABLE (01/07/2019); CHEST TWO VIEWS 23084 (01/06/2019); XR CHEST AP | | | [...] PORTABLE (01/07/2019); | | CHEST TWO VIEWS 48080 (01/06/2019); XR CHEST AP PORTABLE (12/13/2018); | [...] | | | POC | performed at [facility];[address] | | LABORATORY | | | | [address];[place] | | | | | | [address] | | | | + + + + + + + + | Specimen | + + | | + + + + + + + | Performing | Address | City/State/Zipcode | Phone Number | | Organization | | | | + + + + + | [facility] | [address] | [place] [address] | [phone] | + + + + + Comprehensive [...] | | | | | | MDRD [facility] traceable | | | | | | equation.Testing | | | | | | performed at [facility];[address] | | | | | | [facility];[place], [place] | | | | | | [address] | | | | + + + + + + + + | Specimen | + + | Blood | + + + + + + + | Performing | Address | City/State/Zipcode | Phone Number | | Organization | | | | + + + + + | [facility] | [address] | [place] [address] | [phone] | + + + + + CBC [...] [address] | | | | | [address];[place] [address] | | | | + + + + + + + + | Specimen | + + | Blood | + + + + + + + | Performing | Address | City/State/Zipcode | Phone Number | | Organization | | | | + + + + + | [facility] | [address] | [place] [address] | [phone] | + + + + + POC [...] | | | POC | performed at [facility];[address] | | LABORATORY | | | | [address];[place], [place] | | | | | | [address] | | | | + + + + + + + + | Specimen | + + | | + + + + + + + | Performing | Address | City/State/Zipcode | Phone Number | | Organization | | | | + + + + + | [facility] | [address] | [place] [address] | [phone] | + + + + + POC Glucose (01/09/2019 6:19 AM PST) + + + + + + | Component | Value | Ref Range | Performed | Pathologist | | | | | At | Signature | + + + + + + | Glucose, | 88Comment: Testing | 65 - 99 mg/dL | [facility] | | | POC | performed at [facility];[address] | | LABORATORY | | | | [address];[place] | | | | | | [address] | | | | + + + + + + + + | Specimen | + + | | + + + + + + + | Performing | Address | City/State/Zipcode | Phone Number | | Organization | | | | + + + + + | [facility] | [address] | [place] [address] | [phone] | + + + + + POC Glucose (01/08/2019 8:56 PM PST) + + + + + + | Component | Value | Ref Range | Performed | Pathologist | | | | | At | Signature | + + + + + + | Glucose, | 134 (H)Comment: Testing | 65 - 99 mg/dL | [facility] | | | POC | performed at [facility];[address] | | LABORATORY | | | | [address];[place] | | | | | | [address] | | | | + + + + + + + + | Specimen | + + | | + + + + + + + | Performing | Address | City/State/Zipcode | Phone Number | | Organization | | | | + + + + + | [facility] | [address] | [place] [address] | [phone] | + + + + + POC [...] | | | POC | performed at [facility];[address] | | LABORATORY | | | | [address];[place], [place] | | | | | | [address] | | | | + + + + + + + + | Specimen | + + | | + + + + + + + | Performing | Address | City/State/Zipcode | Phone Number | | Organization | | | | + + + + + | [facility] | [address] | [place] [address] | [phone] | + + + + + POC Glucose (01/08/2019 12:23 PM PST) + + + + + + | Component | Value | Ref Range | Performed | Pathologist | | | | | At | Signature | + + + + + + | Glucose, | 76Comment: Testing | 65 - 99 mg/dL | [facility] | | | POC | performed at [facility];[address] | | LABORATORY | | | | [address];[place], [place] | | | | | | [address] | | | | + + + + + + + + | Specimen | + + | | + + + + + + + | Performing | Address | City/State/Zipcode | Phone Number | | Organization | | | | + + + + + | [facility] | [address] | [place] [address] | [phone] | + + + + + POC Glucose (01/08/2019 7:35 AM PST) + + + + + + | Component | Value | Ref Range | Performed | Pathologist | | | | | At | Signature | + + + + + + | Glucose, | 74Comment: Testing | 65 - 99 mg/dL | [facility] | | | POC | performed at [facility];[address] | | LABORATORY | | | | [address];[place] | | | | | | [address] | | | | + + + + + + + + | Specimen | + + | | + + + + + + + | Performing | Address | City/State/Zipcode | Phone Number | | Organization | | | | + + + + + | [facility] | [address] | [place] [address] | [phone] | + + + + + Comprehensive [...] | | | | | performed at [facility], [address] | | | | | | [address], | | | | | | [place] [address] | | | | + + + + + + + + | Specimen | + + | Blood | + + + + + + + | Performing | Address | City/State/Zipcode | Phone Number | | Organization | | | | + + + + + | [facility] | [address] | [place] [address] | [phone] | + + + + + CBC [...] [facility] | | | | performed at [facility], [address] | | LABORATORY | | | | [address], | | | | | | [place] [address] | | | | + + + + + + + + | Specimen | + + | Blood | + + + + + + + | Performing | Address | City/State/Zipcode | Phone Number | | Organization | | | | + + + + + | [facility] | [address] | [place] [address] | [phone] | + + + + + POC [...] | | | POC | performed at [facility];[address] | | LABORATORY | | | | [address];[place] | | | | | | [address] | | | | + + + + + + + + | Specimen | + + | | + + + + + + + | Performing | Address | City/State/Zipcode | Phone Number | | Organization | | | | + + + + + | [facility] | [address] | [place] [address] | [phone] | + + + + + POC Glucose (01/07/2019 5:34 PM PST) + + + + + + | Component | Value | Ref Range | Performed | Pathologist | | | | | At | Signature | + + + + + + | Glucose, | 109 (H)Comment: Testing | 65 - 99 mg/dL | [facility] | | | POC | performed at [facility];[address] | | LABORATORY | | | | [address];[place] | | | | | | [address] | | | | + + + + + + + + | Specimen | + + | | + + + + + + + | Performing | Address | City/State/Zipcode | Phone Number | | Organization | | | | + + + + + | [facility] | [address] | [place] [address] | [phone] | + + + + + CT [...] adenopathy. Upper Abdomen: The | | | [place] kidneys are atrophic. There is a small [...] No adenopathy. | | Upper Abdomen: The [place] kidneys are atrophic. There is a small [...] Testing | 65 - 99 mg/dL | [facility] | | | POC | performed at [facility];[address] | | LABORATORY | | | | [address];[place] | | | | | | [address] | | | | + + + + + + + + | Specimen | + + | | + + + + + + + | Performing | Address | City/State/Zipcode | Phone Number | | Organization | | | | + + + + + | [facility] | [address] | [place] [address] | [phone] | + + + + + Hepatitis [...] | LABORATORY | | | | [facility], [address] | | | | | | [place], [place] | | | | | | [address] | | | | + + + + + + + + | Specimen | + + | Blood | + + + + + + + | Performing | Address | City/State/Zipcode | Phone Number | | Organization | | | | + + + + + | [facility] | [address] | [place] [address] | [phone] | + + + + + POC Glucose (01/07/2019 7:14 AM PST) + + + + + + | Component | Value | Ref Range | Performed | Pathologist | | | | | At | Signature | + + + + + + | Glucose, | 83Comment: Testing | 65 - 99 mg/dL | [facility] | | | POC | performed at [facility];[address] | | LABORATORY | | | | [address];[place], [place] | | | | | | [address] | | | | + + + + + + + + | Specimen | + + | | + + + + + + + | Performing | Address | City/State/Zipcode | Phone Number | | Organization | | | | + + + + + | [facility] | [address] | [place] [address] | [phone] | + + + + + XR [...] (500), | | | | | | digital editor JOSH CHAPPELL | | | | | | (9300) on 01/07/2019 | | | | | [...] | | | POC | performed at [facility];[address] | | LABORATORY | | | | [address];[place], [place] | | | | | | [address] | | | | + + + + + + + + | Specimen | + + | | + + + + + + + | Performing | Address | City/State/Zipcode | Phone Number | | Organization | | | | + + + + + | [facility] | [address] | [place] [address] | [phone] | + + + + + POC Glucose (01/07/2019 2:08 AM PST) + + + + + + | Component | Value | Ref Range | Performed | Pathologist | | | | | At | Signature | + + + + + + | Glucose, | 67Comment: Testing | 65 - 99 mg/dL | [facility] | | | POC | performed at [facility];[address] | | LABORATORY | | | | [address];[place] | | | | | | [address] | | | | + + + + + + + + | Specimen | + + | | + + + + + + + | Performing | Address | City/State/Zipcode | Phone Number | | Organization | | | | + + + + + | [facility] | [address] | [place] [address] | [phone] | + + + + + Troponin I (01/07/2019 1:40 AM PST) + + + + + + | Component | Value | Ref Range | Performed | Pathologist | | | | | At | Signature | + + + + + + | Troponin I | 0.149 (H)Comment: 0.04 | 0.00 - 0.04 | [facility] | | | | ng/mL [...] at | | | | | | [facility];[address] [facility] | | | | | | [address]vd;[place] [address] | | | | + + + + + + + + | Specimen | + + | Blood | + + + + + + + | Performing | Address | City/State/Zipcode | Phone Number | | Organization | | | | + + + + + | [facility] | [address] | [place] [address] | [phone] | + + + + + Comprehensive [...] 38 | 10 - 65 U/L | [facility] | | | | | | LABORATORY | | + + + + + + | Estimated | 3 (L)Comment: GFR <60: | >60 | [facility] | | | GFR | [...] | | | | | | MDRD [facility] traceable | | | | | | equation.Testing | | | | | | performed at [facility];[address] | | | | | | [facility];[place], [place] | | | | | | [address] | | | | + + + + + + + + | Specimen | + + | Blood | + + + + + + + | Performing | Address | City/State/Zipcode | Phone Number | | Organization | | | | + + + + + | [facility] | [address] | [place] [address] | [phone] | + + + + + CBC [...] | | | | | | at [facility];[address];[place] [address] | | | | | |NORMAL PLT MORPH | | | | | |Testing performed at [facility];[address] [place] [address];[place] [address] | | | | | | | | | | + + + + + + + + | Specimen | + + | Blood | + + + + + + + | Performing | Address | City/State/Zipcode | Phone Number | | Organization | | | | + + + + + | [facility] | [address] | [place] [address] | [phone] | + + + + + Thoracentesis [...] space: 6th Puncture method: | | | fvpp-ixq-jehpzk catheter Needle size: 18 Catheter size: 18 [...] anxiety with hemodialysis, | | | Starting Little 01/10/19 at 0952 | | + +---+ [...] PST | | | | | Starting Mon01/09/19 at 1136 | | | | | [...] | | | | | CONTINUOUS, Starting 01/08/19 | | | | | | | [...]
--- OUTSIDE RECORDS SUMMARY | ~2019-07-14 | XMS | Encounter Summary ---
Demographics + + + | Address | [address] | | | [place] [address] | + + + | Home Phone [...] | Author | [facility] | | | and [place] | + + + | Organization | [facility] | [...] Providers + +------+ + | Care Canvas Goods Maker Name | Role | Phone | + +------+ + PCP | Unavailable | + +------+ + Encounter Details +--------+---------+ + + + | Date | Type | Department | Care Team | Description | +--------+---------+ + + + | 07/10/ | E-Visit | [facility] | Jorje Camp | | | 2017 | | NEPHROLOGY [address] | M, DO [address] | | | | | [address] | [address] | | | | | [place], [place] | [place], [place] | | | | | [address] | [address] | | | | | [phone] | | | +--------+---------+ + + + [...]
--- OUTSIDE RECORDS SUMMARY | ~2019-07-14 | XMS | Encounter Summary ---
Demographics + + + | Address | [address] | | | [place] [address] | + + + | Home Phone [...] Author | [facility] | | | and [place] | + + + | Organization | [facility] [...] Providers + +------+ + | Care Senior Software Engineering Manager Name | Role | Phone [...] | NEPHROLOGY [address] | renal disease) ([facility]) | | | | [address] | [address] [place] | (Primary Dx); | | | | [place], [place] | [place] [address] | Secondary | | | | [address] | [phone] | hyperparathyroidism | | | | [phone] | | ([facility]); | | | | | | Hyperphosphatemia [...]
--- OUTSIDE RECORDS SUMMARY | ~2019-07-14 | XMS | Encounter Summary ---
Demographics + + + | Address | [address] | | | [place] [address] | + + + | Home Phone [...] | [facility] | | | and [place] | + + + | Organization | [facility] | [...] Providers + +------+ + | Care Technology Sales Representative Name | Role | Phone | + +------+ + PCP | Unavailable | + +------+ + Encounter Details +--------+ + + + + | Date | Type | Department | Care Team | Description | +--------+ + + + + | 06/24/ | Hospital | [facility] | Rik Simon MD | | | 2015 | Encounter | [facility] | [address] | | | | | [address] | [place], [place] | | | | | [place], [place] | [address] | | | | | [address] | [phone] | | | | | [phone] | | | +--------+ + + + [...] 06/24/141340 Date of Service: 06/24/141340 Status: Signed Fabrication Specialist: Merlin Carter RPH (Pharmacist) Clinical Pharmacy Note: [...] - 1.00 mg/dL Final Testing performed at [facility];[address] [place] [address];[place] [address] CREATININE: 7.55 mg/dL ABNORMAL (06/24/14 1045) Estimated creatinine clearance - 14.7 mL/min Pharmacy dosing for renal function per Dr. Simon. Currently, there are no medications needing to be adjusted. Pharmacy will continue to monit or for changes in medication orders and in renal function and adjust accordingly. Merlin Carter, [facility] 06/24/2014 1:41 PM docume nted [...] LAB | | | | Blvd;[place] [address] | | | | + + + + + + | Antibody | NEGATIVE | | EXTERNAL | | | Screen | | | LAB | | + + + + + + | Antibody | Testing performed at | | EXTERNAL | | | Screen | [facility];[address] | | LAB | | | | Blvd;[place] [address] | | | | + + + + + + | BB BAND | [id number] | | EXTERNAL | | | | | | LAB | | + + + + + + | BB BAND | Testing performed at | | EXTERNAL | | | | [facility];[address] | | LAB | | | | [address];[place] [address] | | | | + + + [...] at [facility] | | | | | | [facility];[place], [place] | | | | | | [address] | | | | + + + [...] at [facility] | | LAB | | | | [address];[place] | | | | | | [address] | | | | + + + [...] [place] | | | | | | [address] | | | | + + + + + + | K | 4.3Comment: Testing | 3.5 - 4.9 | EXTERNAL | | | | performed at [facility];[address] | mmol/L | LAB | | | | [address];[place] | | | | | | [address] | | | | + + + + + + | Cl | 101Comment: Testing | 99 - 109 mmol/L | EXTERNAL | | | | performed at [facility];[address] | | LAB | | | | [address];[place] | | | | | | [address] | | | | + + + + + + | CO2 | 23Comment: Testing | 23 - 32 mmol/L | EXTERNAL | | | | performed at [facility];[address] | | LAB | | | | [address];[place] | | | | | | [address] | | | | + + + + + + | Anion Gap | 16Comment: Testing | 5 - 20 mmol/L | EXTERNAL | | | | performed at [facility];[address] | | LAB | | | | [address];[place] | | | | | | [address] | | | | + + + + + + | Glucose, | 84Comment: Testing | 65 - 99 mg/dL | EXTERNAL | | | Fasting | performed at [facility];[address] | | LAB | | | | [address];[place] | | | | | | [address] | | | | + + + + + + | BUN | 40 (H)Comment: Testing | 8 - 25 mg/dL | EXTERNAL | | | | performed at [facility];[address] | | LAB | | | | [address];[place] | | | | | | [address] | | | | + + + + + + | Creatinine | 7.55 (H)Comment: Testing | 0.50 - 1.00 | EXTERNAL | | | | performed at [facility];888 | mg/dL | LAB | | | | [address];[place] | | | | | | [address] | | | | + + + + + + | BUN/Creatin | 5Comment: Testing | | EXTERNAL | | | ine Ratio | performed at [facility];[address] | | LAB | | | | [address];[place] | | | | | | [address] | | | | + + + + + + | Calcium | 9.8Comment: Testing | 8.5 - 10.5 | EXTERNAL | | | | performed at [facility];888 | mg/dL | LAB | | | | [address];[place] | | | | | | [address] | | | | + + + [...] [place];[address] | | | | | | [facility];[place], [place] | | | | | | [address] | | | | + + + [...]
--- OUTSIDE RECORDS SUMMARY | ~2019-07-14 | XMS | Encounter Summary ---
Demographics + + + | Address | [address] | | | [place] [address] | + + + | Home Phone [...] | Author | [facility] | | | and [place] | + + + | Organization | [facility] [place] [facility] | [...] + + | 08/21/ | Hospital | [facility] | Conversion | End stage renal | | 2015 | Encounter | CENTER CV INTRA OP | Transaction, | disease (HCC); | | | | [address] | Provider Unknown | Mechanical | | | | [place], [place] | [phone] | complication of | | | | [address] | | other vascular | | | | [phone] | Darryn Whaley, | device, implant, and | | | | | [address] | graft (HCC) | | | | | [address]VE [place], [place] | | | | | | [address] | | | | | | | [...] venous anastomosis without incidence. | | | [address]695, 23831, 13925, 21030 | | + + + + + [...] conscious sedation and | | | independent group home supervision performed throughout the | | | [...] adequate conscious sedation and independent | | group home supervision performed throughout the procedure. [...] arterial venous | | anastomosis without incidence. 76173, 95781, 86912, 18388 | | | | | |64735, 12029, 68754, [address] | | | | | + + [...] venous anastomosis without incidence. | | | 44807, 20776, 48026, [address]3037 | | + + + + + [...] conscious sedation and | | | independent group home supervision performed throughout the | | | [...] adequate conscious sedation and independent | | group home supervision performed throughout the procedure. [...] arterial venous | | anastomosis without incidence. 30838, 63889, 28217, 17684 | | | | | |67113, 09583, 28586, [address]6915 | | | | | + + documented in this encounter Visit Diagnoses + + | Diagnosis | + + | End stage renal disease (HCC) End stage renal disease | + + | Mechanical complication of other vascular device, implant, and graft | + + documented in this encounter"
--- OUTSIDE RECORDS SUMMARY | ~2019-07-14 | XMS | Encounter Summary ---
Demographics + + + | Address | [address] | | | [place] [address] | + + + | Home Phone [...] | Author | [facility] | | | and [place] | + + + | Organization | [facility] [...] Team Providers + +------+ + | Care Broaching Machine Operator Name | Role | Phone [...] | | [address] | [place] | | | | | [place], [place] | [place], [place] | | | | | [address] | [address] | | | | | [phone] | | | +--------+--------+ + + + [...]
--- OUTSIDE RECORDS SUMMARY | ~2019-07-14 | XMS | Encounter Summary ---
Demographics + + + | Address | [address] | | | [place] [address] | + + + | Home Phone [...] | Author | [facility] | | | and [place] | + + + | Organization | [facility] [...] Providers + +------+ + | Care Account Manager Forest Service Name | Role | Phone | [...] | stage renal | [address] | [address] [place] [address] | | | | | disease) | Shun Griffin | [place] | | | | | ([facility]) | [address] | [address] [place] | | | | | Anemia in | [place], [place] | [place] | | | | | ESRD | [address] | [address] Phone: | | | | | (end-stage | Phone: | [phone] | | | | | renal | [phone] | Fax: | | | | | disease) | Fax: | [phone] | | | | | ([facility]) | [phone] | | | | | | Procedures [...] [address] | renal disease) ([facility]) | | | | [address] | [place] | (Primary Dx); | | | | [place], [place] | [place], [place] | Anemia in ESRD | | | | [address] | [address] | (end-stage renal | | | | [phone] | | disease) ([facility]) | [...] rechec k her in 2 weeks. CC: Higgins Fina Joy MD, [facility], [facility] signed by Jorje Camp DO at 01/20/2015 5:14 PM PSTdocumented in this encount er Plan of Treatment Not on filedocumented as of this encounter Visit Diagnoses + + | Diagnosis | + + | ESRD (end stage renal disease) ([facility]) - Primary End stage renal disease | + + | Anemia in ESRD (end-stage renal disease) ([facility]) Anemia in chronic kidney disease | + + documented in this encounter"
--- OUTSIDE RECORDS SUMMARY | ~2019-07-14 | XMS | Encounter Summary ---
Demographics + + + | Address | [address] | | | [place] [address] | + + + | Home Phone [...] | | | | | [place] [address] | | + + + + + | Thania Mallory | ECON | [address] | | | | | [place] [address] | | + + + + + | Deidra Weldon | ECON | [address] | | | | | [place] | | | | | [address] | | + + + + + Care Team Providers + +------+ + | Care Road Freight Firer Name | Role | Phone | + [...] | [address] | [facility] | | | | | [address] [place], | [place], [place] | | | | | [place] [address] | [address] | | | | | [phone] | | | +--------+ + + + [...] Denise | | | | | | [place], [place] | | | | | | [address] | | | | | | [phone] | | | | | | | | +--------+ + + + + documented as of this encounter Visit Diagnoses Not on filedocumented in this encounter"
--- OUTSIDE RECORDS SUMMARY | ~2019-07-14 | XMS | Encounter Summary ---
Demographics + + + | Address | [address] | | | [place] [address] | + + + | Home Phone [...] | | | | | [place] [address] | | + + + + + | Thania Mallory | ECON | [address] | | | | | [place] [address] | | + + + + + | Deidra Weldon | ECON | [address] | | | | | [place] | | | | | [address] | | + + + + + [...] ) | | | | [address] | [facility] | | | | | Park [facility], | [place], [place] | | | | | [place] [address] | [address] | | | | | [phone] | | | +--------+ + + + [...] [place] | | | | | | [address] | | | | | | [phone] | | | | | | | | +--------+ + + + + documented as of this encounter Visit Diagnoses Not on filedocumented in this encounter"
--- OUTSIDE RECORDS SUMMARY | ~2019-07-14 | XMS | Encounter Summary ---
Demographics + + + | Address | [address] | | | [place] [address] | + + + | Home Phone [...] | [facility] | | | and [place] | + + + | Organization | [facility] | | [...] Team Providers + +------+ + | Care Cooler Room Worker Name | Role | Phone [...] | stage renal | [address] | [address] [place] [address] | | | | | disease) | Shun Griffin | [place] | | | | | ([facility]) | [address] | [address] [place] | | | | | Anemia in | [place], [place] | [place] | | | | | ESRD | [address] | [address] Phone: | | | | | (end-stage | Phone: | [phone] | | | | | renal | [phone] | Fax: | | | | | disease) | Fax: | [phone] | | | | | ([facility]) | [phone] | | | | | | Procedures [...] | | [address] | [place] | (Primary Dx) | | | | [place], [place] | [place], [place] | | | | | [address] | [address] | | | | | [phone] | | | +--------+ + + + [...] is seen on the MWF shift at [place], [place]. 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 Sadly, efforts at counseling by multiple caregivers including Dr. Ibarra, myself, Staff Nurs es, and Clinic APPLICATIONS MANAGER have failed to reach her. She continues [...] Will recheck her in 2 weeks. : Maxwell Fina Joy M.D., Pediatric Nephrology, [facility] documented in t his encounter Plan of Treatment Not on filedocumented as of this encounter Visit Diagnoses + + | Diagnosis | + + | ESRD (end stage renal disease) (HCC) - Primary End stage renal disease | + + documented in this encounter"
--- OUTSIDE RECORDS SUMMARY | ~2019-07-14 | XMS | Encounter Summary ---
Demographics + + + | Address | [address] | | | [place] [address] | + + + | Home Phone [...] Author | [facility] | | | and [place] | + + + | Organization | [facility] [...] Team Providers + +------+ + | Care Valve Setter Name | Role | Phone | [...] | Encounter | JOY | MD Emanuel [address] | | | | | [address] | [facility] | | | | | [address] | [place], [place] | | | | | [place], [place] | [address] | | | | | [address] | [phone] | | | | | [phone] | | | +--------+ + + + [...]
--- OUTSIDE RECORDS SUMMARY | ~2019-07-14 | XMS | Encounter Summary ---
Demographics + + + | Address | [address] | | | [place] [address] | + + + | Home Phone [...] Author | [facility] | | | and [place] | + + + | Organization | [facility] | | | [...] Providers + +------+ + | Care Facility Mechanic Name | Role | Phone | [...] + + | 07/12/ | Refill | [facility] | Carolina Mahmood DO | Medication Refill | | 2019 | | [facility] [place] | [address] | | | | | [address] | [place], [place] | | | | | [place], [place] | [address] | | | | | [address] | | | | | | [phone] | | | +--------+--------+ + + + [...]
--- OUTSIDE RECORDS SUMMARY | ~2019-07-14 | XMS | Encounter Summary ---
Demographics + + + | Address | [address] | | | [place] [address] | + + + | Home Phone [...] | | | | | [place] [address] | | + + + + + | Thania Mallory | ECON | [address] | | | | | [place] [address] | | + + + + + | Deidra Weldon | ECON | [address] | | | | | [place] | | | | | [address] | | + + + + + Care Team Providers + +------+ + | Care Terrazzo Roller Name | Role | Phone | [...] lab/Provider | | | | [address] [place], | [place], [place] | updated) | | | | [place] [address] | [address] | | | | | [phone] | [phone] | | | | | | | [...] Denise | | | | | | [place], [place] | | | | | | [address] | | | | | | [phone] | | | | | | | | +--------+ + + + + documented as of this encounter Visit Diagnoses Not on filedocumented in this encounter"
--- OUTSIDE RECORDS SUMMARY | ~2019-07-14 | XMS | Encounter Summary ---
Demographics + + + | Address | [address] | | | [place] [address] | + + + | Home Phone [...] | Author | [facility] | | | and [place] | + + + | Organization | [facility] | [...] Providers + +------+ + | Care Brine Tank Tender Name | Role | Phone | [...] to | | | obtain one in [place]. I explained that we would have to [...] | | KIDNEY TRANSPLANT | [address] [place], | (Dara whelan so I | | | | [address] [place] | [place] [address] | called her back to | | | | [address] [place], [place] | [phone] | complete intake | | | | [address] | | questionnaire. She | | | | [phone] | | currently ingests | | | [...] | | | | | one in [place]. I | | | | | | [...] she would have to obtain one in [place]. I explained that we would have to [...]
--- OUTSIDE RECORDS SUMMARY | ~2019-07-14 | XMS | Encounter Summary ---
[...] | | | | | [place] [address] | | + + + + + | Thania Mallory | ECON | [address] | | | | | [place] [address] | | + + + + + | Deidra Weldon | ECON | [address] | | | | | [place] | | | | | [address] | | + + + + + Care Team Providers + +------+ + | Care Training And Development Rep Name | Role | Phone | [...] Requested | | | | Alexander | [facility] | | | | | [facility] | [place], [place] | | | | | [address] [place] [address] Dr | [address] | | | | | Alexander | | | | | | [facility], | | | | | | [address] [place] [address] | | | | | | [place], [place] | | | | | | [address] | | | | | | [phone] | | | +--------+ + + + [...] Denise | | | | | | [place], [place] | | | | | | [address] | | | | | | [phone] | | | | | | | | +--------+ + + + + documented as of this encounter Visit Diagnoses Not on filedocumented in this encounter"
--- OUTSIDE RECORDS SUMMARY | ~2019-07-14 | XMS | Encounter Summary ---
Demographics + + + | Address | [address] | | | [place] [address] | + + + | Home Phone [...] Author | [facility] | | | and [place] | + + + | Organization | [facility] | [...] Team Providers + +------+ + | Care Chainstitch Seat Joiner Name | Role | Phone | [...] | Encounter | JOY | MD Emanuel [address] | | | | | [address] | [facility] | | | | | [address] | [place], [place] | | | | | [place], [place] | [address] | | | | | [address] | [phone] | | | | | [phone] | | | +--------+ + + + [...]
--- OUTSIDE RECORDS SUMMARY | ~2019-07-14 | XMS | Encounter Summary ---
Demographics + + + | Address | [address] | | | [place] [address] | + + + | Home Phone [...] | Author | [facility] | | | and [place] | + + + | Organization | [facility] [...] Team Providers + +------+ + | Care Dietary Manager Name | Role | Phone | [...] NEPHROLOGY [address] | MD [address] | | | | | [address] | [address] [place] | | | | | [place], [place] | [place] [address] | | | | | [address] | [phone] | | | | | [phone] | | | +--------+ + + + [...]
--- OUTSIDE RECORDS SUMMARY | ~2019-07-14 | XMS | Encounter Summary ---
Demographics + + + | Address | [address] | | | [place] [address] | + + + | Home Phone [...] | Author | [facility] | | | and Josephana | + + + | Organization | [facility] | [...] Team Providers + +------+ + | Care Lines Tender Name | Role | Phone | [...] + + | 01/23/ | Hospital | [facility] | Vivek Teran, | SOB (shortness of | | 2019 - | Encounter | [facility] | MD Brooks [address] | breath) (Primary | | | | CARE FLOOR [address] | [place] [address] | Dx); ESRD needing | | 01/26/ | | [address] | [phone] | dialysis ([facility]); | | 2019 | | [place], [place] | | Chronic pleural | | | | [address] | Omar Hatch MD [address] | effusion; | | | | [phone] | [address] | Noncompliance with | | | | | [place] [address] | renal dialysis | | | | | [phone] | ([facility]); Acute | | | | | | respiratory | | | | | Sotero Reinoso MD | distress; Anemia in | | | | | [address] | ESRD (end-stage | | | | | [place], [place] | renal disease) | | | | | [address] | ([facility]); At high risk | | | | | | for electrolyte | | | | | Usha Martínez MD | imbalance; ESRD on | | | | | [address] | hemodialysis ([facility]); | | | | | [place] [address] | Hyperphosphatemia; | | | | | [phone] | Noncompliance; | | | | | [...] note might be different from pierre coleman. [facility] Service: Hospitalist Discharge Summary Date [...] CHEST AP PORTABLE (01/07/2019); CHEST TWO VIEWS 07642 (01/06/2019); XR CHEST AP PORTABLE (12/13/2018); FINDINGS: [...] CHEST AP PORTABLE (01/07/2019); CHEST TWO VIEWS 88694 (01/06/2019); FINDINGS: Mild cardiomegaly. No pneumothorax. Interstitial [...] Confirmed by MUSE READ ONLY, -COMPUTER ([id number]), managing editor Daniela Luciano ([id number]) on 01/24/2019 5:16: [...] to Gram-positive bacteria 12/12/2018 Clotted dialysis access ([facility]) 2014 Congestive heart failure (HCC) ESRD (end stage renal disease) (HCC) HSP (Henoch-Schonlein purpura) nephritis ([facility]) 1987 Hypertension Pericardial effusion without cardiac tamponade 11/07/2018 Past Surgical History: Procedure Laterality Date ABDOMEN SURGERY AV FISTULA REPAIR 02/24/2014 LEFT Radical Cephalic Fistula Creation; Laterality: Left; Surgeon: Blake Chavarria MD ; Location: [facility] MAIN OR AV FISTULA REPAIR Left 03/07/2014 Procedure: AV FISTULA - GRAFT REPAIR/REVISION; Surgeon: Rik Simon MD; Location: [facility] OR; Service: Vascular; Laterality: Left; biopsy of kidney age 10 DIALYSIS FISTULA CREATION 04/08/2014 Procedure: DIALYSIS CATHETER - INSERTION; Surgeon: Rik Simon MD; Location: [facility] ; Service: Vascular; Laterality: N/A; tunneled catheter.br hemodialysis catheter KIDNEY BIOPSY Left 2003 OTHER SURGICAL HISTORY LAPAROSCOPIC PERITONEAL DIALYSIS CATHETER INSERTION - x2 OTHER SURGICAL HISTORY Right 07/2013 LAPAROSCOPIC PERITONEAL DIALYSIS CATHETER INSERTION - current dialysis access MWF dialysis OTHER SURGICAL HISTORY Left 06/24/2014 SUPERFICIALIZATION OF AV FISTULA - Procedure: AV FISTULA - SUPERFICIALIZATION; Surgeon: Emanuel Simon MD; Location: [facility] OR; Service: Vascular; Laterality: Left; OTHER SURGICAL HISTORY Left 04/08/2014 AV FISTULA PLACEMENT - Procedure: AV FISTULA; Surgeon: Rik Simon MD; Location: [facility]; Service: Vascular; Laterality: Left; cephalic OTHER SURGICAL HISTORY Left 03/07/2014 DECLOT GRAFT - Procedure: GRAFT - DECLOT; Surgeon: Rik Simon MD; Location: [facility] OR ; Service: Vascular; Laterality: Left; [...] Follow [place]: [place] [address] [facility] [place] [address] Schedule an appointment as soon as possible [...] Chronic pleural effusion [J90] Recommendations: No acute CONSULTATIVE SALES ASSOCIATE indication Management of the right pleural effusion [...] PRN hydralazine. [facility] for which she i s [...] R?MRN: | | | | | | [id number] | | | [id number] | | | riteri | | | [...] | | | St. | | | [place] | | | y | | | [...] | | | St. | | | [place] | | | y | | | [...] | | | St. | | | [place] | | | y | | | [...] | | | St | | | [place] | | | y | | | [...] St | | | | | | [place] | | | y | | | [...] | | | St. | | | [place] | | | y | | | [...] | | | St. | | | [place] | | | y H. | | [...] | | | St. | | | [place] | | | y H. | | [...] | | | St. | | | [place] | | | y H. | | [...] | | | St. | | | [place] | | | y H. | | [...] | | | St. | | | [place] | | | y H. | | [...] | | | St. | | | [place] | | | y H. | | [...] | | | MD | | | Bezel Cutter | | | al | | [...] | | | [id number] | | | [id number] | | | eb | | | [...] | | | | | [place] [address] | | | | + + + + + + + + | Specimen | + + | | + + + + + + + | Performing | Address | City/State/Zipcode | Phone Number | | Organization | | | | + + + + + | [facility] | [address] | [place] [address] | [phone] | + + + + + CBC [...] MISHEL | | | | performed at [facility], [address] | | LABORATORY | | | | [address], | | | | | | [place] [address] | | | | + + + + + + + + | Specimen | + + | | + + + + + + + | Performing | Address | City/State/Zipcode | Phone Number | | Organization | | | | + + + + + | [facility] | [address] | [place] [address] | [phone] | + + + + + Renal [...] | | | | | performed at [facility], [address] | | | | | | [facility], | | | | | | [place] [address] | | | | + + + + + + + + | Specimen | + + | Blood | + + + + + + + | Performing | Address | City/State/Zipcode | Phone Number | | Organization | | | | + + + + + | [facility] | [address] | [place] [address] | [phone] | + + + + + HEMODIALYSIS [...] [R06.02] | | | ESRD needing dialysis ([facility]) [N18.6, Z99.2] Chronic pleural effusion [...] MISHEL | | | | performed at [facility], [address] | | LABORATORY | | | | [address], | | | | | | [place] [address] | | | | + + + + + + + + | Specimen | + + | | + + + + + + + | Performing | Address | City/State/Zipcode | Phone Number | | Organization | | | | + + + + + | [facility] | [address] | [place] [address] | [phone] | + + + + + CBC [...] [facility] | | | | performed at [facility], [address] | | LABORATORY | | | | [address], | | | | | | [place] [address] | | | | + + + + + + + + | Specimen | + + | | + + + + + + + | Performing | Address | City/State/Zipcode | Phone Number | | Organization | | | | + + + + + | [facility] | [address] | [place] [address] | [phone] | + + + + + Renal [...] 7 (L)Comment: GFR <60: | >60 | [facility] | | | GFR | [...] | | | | | performed at [facility], [address] | | | | | | [facility], | | | | | | [place] [address] | | | | + + + + + + + + | Specimen | + + | Blood | + + + + + + + | Performing | Address | City/State/Zipcode | Phone Number | | Organization | | | | + + + + + | [facility] | [address] | [place] [address] | [phone] | + + + + + Iron [...] | | | | | [place] [address] | | | | + + + + + + + + | Specimen | + + | Blood | + + + + + + + | Performing | Address | City/State/Zipcode | Phone Number | | Organization | | | | + + + + + | [facility] | [address] | [place] [address] | [phone] | + + + + + Ferritin (01/24/2019 5:53 AM PST) + + + + + + | Component | Value | Ref Range | Performed | Pathologist | | | | | At | Signature | + + + + + + | Ferritin | 805 (H)Comment: Testing | 6 - 170 ng/mL | [facility] | | | | performed at [facility], [address] | | LABORATORY | | | | [address], | | | | | | [place] [address] | | | | + + + + + + + + | Specimen | + + | Blood | + + + + + + + | Performing | Address | City/State/Zipcode | Phone Number | | Organization | | | | + + + + + | [facility] | [address] | [place] [address] | [phone] | + + + + + Creatine [...] | | | | | [place] [address] | | | | + + + + + + | CK-MB | 0Comment: Testing | 0 - 3 % | [facility] | | | | performed by [facility], | | LABORATORY | | | | [address], | | | | | | [place] [address] | | | | + + + + + + | CK-BB | 0Comment: Testing | 0 % | [facility] | | | | performed by [facility], | | LABORATORY | | | | [address], | | | | | | [place] [address] | | | | + + + + + + | CK, Total | 156Comment: Testing | 24 - 173 U/L | [facility] | | | | performed at [facility], | | LABORATORY | | | | [address], | | | | | | [place] [address] | | | | + + + + + + | CK-MACRO | 0 | Not Observed % | [facility] | | | TYPE 1 | | | LABORATORY | | + + + + + + | CK-MACRO | 0Comment: Testing | Not Observed % | [facility] | | | TYPE II | performed by [facility], | | LABORATORY | | | | [address], | | | | | | [facility] [address] | | | | + + + + + + + + | Specimen | + + | Blood | + + + + + + + | Performing | Address | City/State/Zipcode | Phone Number | | Organization | | | | + + + + + | [facility] | [address] | [place] [address] | [phone] | + + + + + Phosphorus (01/24/2019 5:53 AM PST) + + + + + + | Component | Value | Ref Range | Performed | Pathologist | | | | | At | Signature | + + + + + + | Phosphorus | 8.6 (H)Comment: Testing | 2.3 - 4.8 mg/dL | [facility] | | | | performed at [facility], [address] | | LABORATORY | | | | [address], | | | | | | [place] [address] | | | | + + + + + + + + | Specimen | + + | Blood | + + + + + + + | Performing | Address | City/State/Zipcode | Phone Number | | Organization | | | | + + + + + | [facility] | [address] | [place] [address] | [phone] | + + + + + Magnesium (01/24/2019 5:53 AM PST) + + + + + + | Component | Value | Ref Range | Performed | Pathologist | | | | | At | Signature | + + + + + + | Magnesium | 2.6 (H)Comment: Testing | 1.7 - 2.4 mg/dL | [facility] | | | | performed at [facility], [address] | | LABORATORY | | | | [address], | | | | | | [place] [address] | | | | + + + + + + + + | Specimen | + + | Blood | + + + + + + + | Performing | Address | City/State/Zipcode | Phone Number | | Organization | | | | + + + + + | [facility] | [address] | [place] [address] | [phone] | + + + + + Basic [...] 4 (L)Comment: GFR <60: | >60 | [facility] | | | GFR | [...] | | | | | performed at [facility], [address] | | | | | | [facility], | | | | | | [place] [address] | | | | + + + + + + + + | Specimen | + + | Blood | + + + + + + + | Performing | Address | City/State/Zipcode | Phone Number | | Organization | | | | + + + + + | [facility] | [address] | [place] [address] | [phone] | + + + + + CBC [...] W | | | | | | [address], | | | | | | [place] [address] | | | | | |Testing performed at [facility], [address] [place] [address] | | | | | | | | | | + + +---- + + + + + | Specimen | + + | Blood | + + + + + + + | Performing | Address | City/State/Zipcode | Phone Number | | Organization | | | | + + + + + | [facility] | [address] | [place] [address] | [phone] | + + + + + Troponin I (01/24/2019 5:53 AM PST) + + + + + + | Component | Value | Ref Range | Performed | Pathologist | | | | | At | Signature | + + + + + + | Troponin I | 0.228 (H)Comment: 0.04 | 0.00 - 0.04 | [facility] | | | | ng/mL [...] | | | | [facility];[address] [facility] | | | | | | [facility];[place] [address] | | | | + + + + + + + + | Specimen | + + | Blood | + + + + + + + | Performing | Address | City/State/Zipcode | Phone Number | | Organization | | | | + + + + + | [facility] | [address] | [place] [address] | [phone] | + + + + + XR [...] CHEST AP PORTABLE (01/07/2019); CHEST TWO VIEWS 01266 (01/06/2019); | | | FINDINGS: Mild cardiomegaly. [...] PORTABLE (01/07/2019); CHEST | | TWO VIEWS 29381 (01/06/2019); | | | | FINDINGS: | [...] + + | Performing | Address | City/State/[facility] | Phone Number | [...] (H)Comment: | 0 - 100 pg/mL | [facility] | | | | Testing performed at | | LABORATORY | | | | [facility];[address] | | | | | | [address];[place] [address] | | | | + + + + + + + + | Specimen | + + | Blood | + + + + + + + | Performing | Address | City/State/Zipcode | Phone Number | | Organization | | | | + + + + + | [facility] | [address] | [place] [address] | [phone] | + + + + + Phosphorus [...] | LABORATORY | | | | [address];[place] | | | | | | [address] | | | | + + + + + + + + | Specimen | + + | Blood | + + + + + + + | Performing | Address | City/State/Zipcode | Phone Number | | Organization | | | | + + + + + | [facility] | [address] | [place] [address] | [phone] | + + + + + Troponin I (01/23/2019 11:26 PM PST) + + + + + + | Component | Value | Ref Range | Performed | Pathologist | | | | | At | Signature | + + + + + + | Troponin I | 0.169 (H)Comment: 0.04 | 0.00 - 0.04 | [facility] | | | | ng/mL [...] | | | | [facility];[address] [facility] | | | | | | [facility];[place] [address] | | | | + + + + + + + + | Specimen | + + | Blood | + + + + + + + | Performing | Address | City/State/Zipcode | Phone Number | | Organization | | | | + + + + + | [facility] | [address] | [place] [address] | [phone] | + + + + + Comprehensive [...] ASSOCIATION;[address] | | | | | | [facility];[place], [place] | | | | | | [address] | | | | + + + + + + + + | Specimen | + + | Blood | + + + + + + + | Performing | Address | City/State/Zipcode | Phone Number | | Organization | | | | + + + + + | [facility] | [address] | [place] [address] | [phone] | + + + + + CBC [...] LABORATORY | | | | [facility];[address] [place] [address] | | | | | | Blvd;[place] [address] | | | | + + + + + + + + | Specimen | + + | Blood | + + + + + + + | Performing | Address | City/State/Zipcode | Phone Number | | Organization | | | | + + + + + | [facility] | [address] | [place] [address] | [phone] | + + + + + XR [...] (01/07/2019); CHEST TWO | | | VIEWS 25154 (01/06/2019); XR CHEST AP PORTABLE (12/13/2018); | [...] CHEST AP PORTABLE (01/07/2019); CHEST TWO VIEWS 08418 (01/06/2019); XR | | CHEST AP PORTABLE [...] (148), | | | | | | managing editor LucianoDaniela | | | | | | [...] correct | | | patient, procedure, equipment, director sales support and site/side marked as | | [...] space: 6th Puncture method: | | | ypzo-ndm-mswtes catheter Number of attempts: 1 Drainage amount: [...] + + | Noncompliance with renal dialysis ([facility]) Noncompliance with renal dialysis | + + | Acute respiratory distress Other pulmonary insufficiency, not elsewhere classified | + + | Anemia in ESRD (end-stage renal disease) ([facility]) Anemia in chronic kidney disease | + + | At high risk for electrolyte imbalance | + + | ESRD on hemodialysis ([facility]) End stage renal disease | [...] | | | | | dose on [facility] 01/24/19 at 0900 | | AM PST [...] | | | | | dose on [facility] 01/24/19 at 0900 | | AM PST [...] 19 4:24 | | | | | [facility] 01/24/19 at 0310, For 1 dose | [...] | | Arm | | Intravenous, ONCE, [facility] 01/24/19 | | AM PST | | | | | at 0125, For 1 dose | | | | | | + +-------+ +--------+---+--------+ +---+---+ | | | +---+---+ + +-------+ +--------+---+---+ | HYDROmorphone (DILAUDID) | Given | 01/25/20 | 0.5 mg | | | | injection 0.5 mg 0.5 mg, | | 19 1:13 | | | | | Intravenous, ONCE, [facility] 01/24/19 | | PM PST | | | | | at 1215, For 1 dose | | | | | | + +-------+ +--------+---+---+ +---+---+ | | | +---+---+ + +-------+ +------+---+---+ | HYDROmorphone (DILAUDID) | Given | 01/25/20 | 1 mg | | | | injection 1 mg 1 mg, | | 19 4:20 | | | | | Intravenous, ONCE, [facility] 01/24/19 | | AM PST | | [...] PST | | | | | Starting [facility] 01/24/19 at 0355, | | | | [...] nonresponsive to | | | Tylenol, Starting [facility] 01/24/19 at | | | 1409 | | + +---+ | | | + +---+ + +-------+ +-------+---+---+ | pantoprazole (PROTONIX) DR | Given | 01/27/20 | 40 mg | | | | tablet 40 mg 40 mg, Oral, DAILY | | 19 8:00 | | | | | BEFORE BREAKFAST, First dose on | | AM PST | | | | | [facility] 01/24/19 at 0630, Do not cut | [...] | | | | | | | [facility] 01/24/19 at 0800, Do not cut | [...] Oral, | | | WITH SNACKS, Starting [facility] | | | 01/24/19 at 0411, Do not cut or | | | crush tablets., | | + +---+ | | | + +---+ | sodium chloride 0.9% (NS) bolus | | | 100 mL 100 mL, Intravenous, | | | Administer over 15 Minutes, | | | DIALYSIS - PRN, Hypotension, | | | Starting [facility] 01/24/19 at 0833, | | | Treatment [...] | | | | | dose on [facility] 01/24/19 at 0900, | | | | [...]
--- OUTSIDE RECORDS SUMMARY | ~2019-07-14 | XMS | Encounter Summary ---
Demographics + + + | Address | [address] | | | [place] [address] | + + + | Home Phone [...] + | Author | [facility] | | | and Josephana | + + + | Organization | [facility] [...] Team Providers + +------+ + | Care Diaper Machine Tender Name | Role | Phone [...] | | | | | | [place] | | | | | | | [...] Fistula | | | | [address] | [place] | Creation | | | | [place] | [place] [address] | | | | | [address] | [phone] | | | | | [phone] | | | +--------+---------+ + + + [...] might be different f rom the original. [facility] POST-OP INSTRUCTIONS: Arterio-Venous Fistula 1. Keep [...] may interact with prescription medicines or other iiik-nfm-dkrjjgh (OTC) drugs. The FDA recommends reading OTC medication labels careful ly to clearly understand the list of active ingredients, directions, and any precautions to help avoid taking too muchacetaminophen. If you have questions, ask your pharmacist or a [facility] care provider. Managing Nausea Some people have [...] or skin changes (rash, itching, or hives). 5949-9550 [employer] [address] [place] [address], [place] [address]. All righ ts reserved. This information is [...] mL/min/1.73m2 | [facility] | | | [facility] | (<18). | | MEDICAL | | [...] [address] | [place] | [phone] | | [facility] | | [address] | | | - LABORATORY | | | | + + + + + | [facility] | [address] | [place], [place] | | | [facility] | | [address] | | | - LABORATORY | [...]
--- OUTSIDE RECORDS SUMMARY | ~2019-07-14 | XMS | Encounter Summary ---
Demographics + + + | Address | [address] | | | [place] [address] | + + + | Home Phone [...] Team Providers + +------+ + | Care Pier Hand Helper Name | Role | Phone | [...] | | | | DEPARTMENT [address] | [facility] | | | | | [address] | [place], [place] | | | | | [place], [place] | [address] | | | | | [address] | [phone] | | | | | [phone] | | | +--------+ + + + [...]
--- OUTSIDE RECORDS SUMMARY | ~2019-07-14 | XMS | Encounter Summary ---
Demographics + + + | Address | [address] | | | [place] [address] | + + + | Home Phone [...] | Author | [facility] | | | and Josephana | + + + | Organization | [facility] [...] Providers + +------+ + | Care Vacuum Extractor Operator Name | Role | Phone | [...] | | | | [address] | [place], [place] | [place], [place] | | | | | stage renal | [address] | [address] Phone: | | | | | disease | Phone: | [phone] | | | | | ([facility]) | [phone] | Fax: | | | | | Infection | Fax: | [phone] | | | | | and | [phone] | | | | | | inflammatory [...] | | [address] | [place], [address] | disease) ([facility]) | | | | [place] | [place] | (Primary Dx); ESRD | | | | [address] | [address] | (end stage renal | | | | [phone] | | disease) ([facility]) | +--------+ + + + + [...] matriculating well through her senior year of [employer] and enjoys her school. Outpatient Prescriptions Marked as Taking for the 10/28/13 encounter (Off-Site Visit) with Camille Camp, DO Medication Sig Dispense Refill cholecalciferol (VITAMIN D-3) 1,000 units tablet Take 1,000 Units by mouth Daily. cinacalcet (SENSIPAR) 30 mg tablet Take 30 mg by mouth Daily. [DISCONTINUED] Doxercalciferol (HECTOROL IV) Inject 1 mcg into the vein Three times a w red devil. Epoetin Andres (EPOGEN IJ) 4,400 Units by [...] excellent candidate for a renal allograft. CC: [facility], [facility] documented in thi s encounter Plan of Treatment Not on filedocumented as of this encounter Visit Diagnoses + + | Diagnosis | + + | Anemia in ESRD (end-stage renal disease) ([facility]) - Primary Anemia in chronic kidney | | disease | + + | ESRD (end stage renal disease) ([facility]) End stage renal disease | + + documented in this encounter"
--- OUTSIDE RECORDS SUMMARY | ~2019-07-14 | XMS | Encounter Summary ---
Demographics + + + | Address | [address] | | | [place] [address] | + + + | Home Phone [...] Author | [facility] | | | and Josephana | + + + | Organization | [facility] | | [...] Providers + +------+ + | Care Supervisor Taping Name | Role | Phone | + +------+ + PCP | Unavailable | + +------+ + Encounter Details +--------+ + + + + | Date | Type | Department | Care Team | Description | +--------+ + + + + | 07/10/ | Hospital | [facility] | Sudhakar Joy | | | 2009 | Encounter | JOY | MD Emanuel [address] | | | | | [address] | [facility] | | | | | [address] | [place], [place] | | | | | [place], [place] | [address] | | | | | [address] | [phone] | | | | | [phone] | | | +--------+ + + + [...]
--- OUTSIDE RECORDS SUMMARY | ~2019-07-14 | XMS | Encounter Summary ---
Demographics + + + | Address | [address] | | | [place] [address] | + + + | Home Phone [...] | Author | [facility] | | | and Josephana | + + + | Organization | [facility] | [...] Providers + +------+ + | Care Medical Videographer Name | Role | Phone | + [...] | | KIDNEY TRANSPLANT | [address] [place], | | | | | [address] [place] | [place] [address] | | | | | [address] [place], [place] | [phone] | | | | | [address] | | | | | | [phone] | | | +--------+ + + + [...]
--- OUTSIDE RECORDS SUMMARY | ~2019-07-14 | XMS | Encounter Summary ---
Demographics + + + | Address | [address] | | | [place] [address] | + + + | Home Phone [...] | | | | | [place] [address] | | + + + + + | Thania Mallory | ECON | [address] | | | | | [place] [address] | | + + + + + | Deidra Weldon | ECON | [address] | | | | | [place] | | | | | [address] | | + + + + + Care Team Providers + +------+ + | Care Plan Examiner Name | Role | Phone | [...] report) | | | | Physician's | [place], [place] | | | | | [address]feanyi, 3rd floor | [address] | | | | | [place], [place] | [phone] | | | | | [address] | | | | | | [phone] | | | +--------+ + + + [...] | 2022 | Encounter | | [address] | | | | | | [place] | | | | | | [address] | | | | | | [phone] | | | | | | | | +--------+ + + + + documented as of this encounter Visit Diagnoses Not on filedocumented in this encounter"
--- OUTSIDE RECORDS SUMMARY | ~2019-07-14 | XMS | Encounter Summary ---
Demographics + + + | Address | [address] | | | [place] [address] | + + + | Home Phone [...] | | | | | [place] [address] | | + + + + + | Thania Mallory | ECON | [address] | | | | | [place] [address] | | + + + + + | Deidra Weldon | ECON | [address] | | | | | [place] | | | | | [address] | | + + + + + Care Team Providers + +------+ + | Care Board Certified Arts Therapist Name | Role | Phone | [...] | [address] | [place], | | | | | [place], | [place] [address] | | | | | [place] [address] | | | | | | [phone] | | | +--------+ + + + [...] Denise | | | | | | [place] | | | | | | [address] | | | | | | [phone] | | | | | | | | +--------+ + + + + documented as of this encounter Visit Diagnoses Not on filedocumented in this encounter"
--- OUTSIDE RECORDS SUMMARY | ~2019-07-14 | XMS | Encounter Summary ---
Demographics + + + | Address | [address] | | | [place] [address] | + + + | Home Phone [...] | | | | | [place] [address] | | + + + + + | Thania Mallory | ECON | [address] | | | | | [place] [address] | | + + + + + | Deidra Weldon | ECON | [address] | | | | | [place] | | | | | [address] | | + + + + + Care Team Providers + +------+ + | Care Gang Investigator Name | Role | Phone | [...] | | [address] | [facility] | | | | | [facility], | [place], [place] | | | | | [place] [address] | [address] | | | | | [phone] | | | +--------+ + + + [...] | | | | | | [place] | | | | | | [address] | | | | | | [phone] | | | | | | | | +--------+ + + + + documented as of this encounter Visit Diagnoses Not on filedocumented in this encounter"
--- OUTSIDE RECORDS SUMMARY | ~2019-07-14 | XMS | Encounter Summary ---
Demographics + + + | Address | [address] | | | [place] [address] | + + + | Home Phone [...] + | Author | [facility] | | | and [place]ana | + + + | Organization | [facility] [...] Providers + +------+ + | Care Clinical Nursing Assistant Name | Role | Phone | + +------+ + PCP | Unavailable | + +------+ + Encounter Details +--------+ + + + + | Date | Type | Department | Care Team | Description | +--------+ + + + + | 10/31/ | Hospital | [facility] | Conversion | ESRD (end stage | | 2015 | Encounter | CENTER CV INTRA OP | Transaction, | renal disease) on | | | | [address] | Provider Unknown | dialysis ([facility]) | | | | [place], [place] | [phone] | | | | | [address] | | | | | | [phone] | Colten Hutchins MD | | | | | | [address] | | | | | | [place], [place] | | | | | | [address] | | | | | | | [...] Note by Bev Carroll RN at 10/31/14 914 Author: Bev Carroll RN Service: Interventional Radiology Author Type: Registered Chantell e Filed: 10/31/14 7832 Date of Service: 10/31/141734 Status: Signed Straw Boss: Bev Carroll RN (Registered Nurse) Sutures removed [...] Note by Bev Carroll RN at 10/31/14 9563 Author: Bev Carroll, RN Service: Interventional Radiology Author Type: Registered Nu rse Filed: 10/31/141649 Date of Service: 10/31/141649 Status: Signed Straw Boss: Bev Carroll RN (Registered Nurse) Attempted removal [...] | | yesterday COMPARISON STUDIES: 10/28/2014 PRIMARY BARREL BUILDER: | | | Colten Hutchins MD, PhD, [facility] OPERATIONS: 1. Ultrasound-guided | | [...] | microsheath were both exchanged for 6 Portuguese sheaths. A catheter was | | | [...] yesterday | | COMPARISON STUDIES: 10/28/2014 PRIMARY BARREL BUILDER: Colten Hutchins MD, PhD, RPVI | | [...] were both exchanged for 6 | | Portuguese sheaths. A catheter was advanced over a [...] | | yesterday COMPARISON STUDIES: 10/28/2014 PRIMARY BARREL BUILDER: | | | Colten Hutchins MD, PhD, [...] | microsheath were both exchanged for 6 Portuguese sheaths. A catheter was | | | [...] yesterday | | COMPARISON STUDIES: 10/28/2014 PRIMARY BARREL BUILDER: Colten Hutchins MD, PhD, RPVI | | [...] were both exchanged for 6 | | Portuguese sheaths. A catheter was advanced over a [...] | | yesterday COMPARISON STUDIES: 10/28/2014 PRIMARY BARREL BUILDER: | | | Colten Hutchins MD, PhD, [facility] OPERATIONS: 1. Ultrasound-guided | | [...] | microsheath were both exchanged for 6 Portuguese sheaths. A catheter was | | | [...] yesterday | | COMPARISON STUDIES: 10/28/2014 PRIMARY BARREL BUILDER: Colten Hutchins MD, PhD, RPVI | | [...] were both exchanged for 6 | | Portuguese sheaths. A catheter was advanced over a [...] | | yesterday COMPARISON STUDIES: 10/28/2014 PRIMARY BARREL BUILDER: | | | Colten Hutchins MD, PhD, [...] | microsheath were both exchanged for 6 Portuguese sheaths. A catheter was | | | [...] yesterday | | COMPARISON STUDIES: 10/28/2014 PRIMARY BARREL BUILDER: Colten Hutchins MD, PhD, [facility] | | OPERATIONS:1. Ultrasound-guided antegrade [...] were both exchanged for 6 | | Portuguese sheaths. A catheter was advanced over a [...]
--- OUTSIDE RECORDS SUMMARY | ~2019-07-14 | XMS | Encounter Summary ---
Demographics + + + | Address | [address] | | | [place] [address] | + + + | Home Phone [...] | | | | | [place] [address] | | + + + + + | Thania Mallory | ECON | [address] | | | | | [place] [address] | | + + + + + | Deidra Weldon | ECON | [address] | | | | | [place] | | | | | [address] | | + + + + + Care Team Providers + +------+ + | Care Auto Mechanic Apprentice Name | Role | Phone [...] Visit | Services Inpatient | [address] [facility] | disease, stage V | | | | [address] [facility] | [address] | (HCC) (Primary Dx) | | | | [address] | [place], [place] | | | | | [facility] | [address] | | | | | [place], [place] | [phone] | | | | | [address] | | | | | | [phone] | | | +--------+---------+ + + + [...] a nutrition perspective. Argentina Mehta, , RD, PSYCHOLOGY TECH, LD documented in this e ncounter Plan [...] [place] | | | | | | [address] | | | | | | [phone] | | | | | | | [...]
--- OUTSIDE RECORDS SUMMARY | ~2019-07-14 | XMS | Encounter Summary ---
Demographics + + + | Address | [address] | | | [place] [address] | + + + | Home Phone [...] Author | [facility] | | | and Josephana | + + + | Organization | [facility] | | | [...] Providers + +------+ + | Care Corporate Counsel Name | Role | Phone | [...] | NEPHROLOGY [address] | renal disease) ([facility]) | | | | [address] | [address] [place] | (Primary Dx); | | | | [place], [place] | [place] [address] | Depression | | | | [address] | [phone] | | | | | [phone] | | | +--------+ + + + [...]
--- OUTSIDE RECORDS SUMMARY | ~2019-07-14 | XMS | Encounter Summary ---
Demographics + + + | Address | [address] | | | [place] [address] | + + + | Home Phone [...] | | | | | [place] [address] | | + + + + + | Thania Mallory | ECON | [address] | | | | | [place] [address] | | + + + + + | Deidra Weldon | ECON | [address] | | | | | [place] | | | | | [address] | | + + + + + Care Team Providers + +------+ + | Care Center Machine Operator Name | Role | Phone [...] | | | | | [address], | [place], [place] | | | | | [place] [address] | [address] | | | | | [phone] | [phone] | | | | | | | [...] Denise | | | | | | [place] | | | | | | [address] | | | | | | [phone] | | | | | | | | +--------+ + + + + documented as of this encounter Visit Diagnoses Not on filedocumented in this encounter"
--- OUTSIDE RECORDS SUMMARY | ~2019-07-14 | XMS | Encounter Summary ---
Demographics + + + | Address | [address] | | | [place] [address] | + + + | Home Phone [...] | Author | [facility] | | | and Josephana | + + + | Organization | [facility] [...] Team Providers + +------+ + | Care Beading Machine Operator Name | Role | Phone [...] | Encounter | JOY | MD Emanuel [address] | | | | | [address] | [facility] | | | | | [address] | [place], [place] | | | | | [place], [place] | [address] | | | | | [address] | [phone] | | | | | [phone] | | | +--------+ + + + [...]
--- OUTSIDE RECORDS SUMMARY | ~2019-07-14 | XMS | Encounter Summary ---
Demographics + + + | Address | [address] | | | [place] [address] | + + + | Home Phone [...] | | | | | [place] [address] | | + + + + + | Thania Mallory | ECON | [address] | | | | | [place] [address] | | + + + + + | Deidra Weldon | ECON | [address] | | | | | [place] | | | | | [address] | | + + + + + Care Team Providers + +------+ + | Care Tobacco Roller Name | Role | Phone | [...] (Primary Dx) | | | | [address] [facility] | | | | | | [place] | | | | | | [facility] | | | | | | [address] [facility], | | | | | | [place] [address] | | | | | | [phone] | | | +--------+------+ + + + [...] | | | | | | [place], [place] | | | | | | [address] | | | | | | [phone] | | | | | | | [...] - | [address] | [place], [place] | | | IMMUNOGENETICS/TRANS | [address] [...] - | [address] | [place], [place] | | | IMMUNOGENETICS/TRANS | Suite [...] [facility] - | [address] | [place], [place] | | | IMMUNOGENETICS/TRANS | Suite [...] | [facility] - | [address] | [place] [address] | | | IMMUNOGENETICS/TRANS | [address] [...] [facility] - | [address] | [place] [address] | | | IMMUNOGENETICS/TRANS | [address] [...] - | [address] | [place], [place] | | | IMMUNOGENETICS/TRANS | [address] [...] - | [address] | [place], [place] | | | IMMUNOGENETICS/TRANS | Suite [...] + + + | [facility] - | [address] | [place] [address] | | | IMMUNOGENETICS/TRANS | [address] [...] | [facility] - | [address] | [place] [address] | | | IMMUNOGENETICS/TRANS | [address] [...] [facility] | [address] | [place] [address] | | | SERVICES, | [address] [...] [facility] | [address] | [place] [address] | | | SERVICES, | [address] [...] + + + + + | [facility] | [address] | [place] [address] | | | SERVICES, CORE | LONG [...] [facility] | | | , SERUM | [facility],[address] | | REG UNIV | | | | [address], [facility],[place] | | PTH - INTFC | | | | [address] | | | | | | [phone]. | | | | | | annalee, [...] [facility] | [address] | [place], [place] | | | UNIV PTH - INTFC | | [address] | | + + + + + [...] [facility] | [address] | [place] [address] | | | SERVICES, CORE | PARK [...] | [facility] | [address] | [place] [address] | | | SERVICES, CORE | PARK [...] + | [facility] - | [address] | [place] [address] | | | [facility] | | | | + + + [...] [facility] | [address] | [place] [address] | | | SERVICES, CORE | PARK [...] + + + + + | [facility] | [address] | [place] [address] | | | SERVICES, CORE | LONG [...] + + + + + | [facility] | [address] | [place] [address] | | | SERVICES, CORE | PARK [...] + | [facility] - | [address] | [place] [address] | | | [place] | | | [...] at: | | | | | | http://www.cdc.gov/nchstp/tb/pubs/tbfactssheets/[email or web address].htm | | | Test performed by: [facility] [address] | | [address] [place] [address] | | + + + + + + + + | Performing | Address | City/State/[facility] Servicescode | Phone Number | | Organization | | | | + + + + + | [facility] | | | | + [...] | [facility] | [address] | [place] [address] | | | SERVICES, SPECIAL | PARK [...] gene at | DIAGNOSTIC | | nucleotide [address]3912. Please note that this assay only detects the | LABORATORIES | | [id number] point mutation and therefore a normal result [...] has been analyzed for the presence of [id number] | | | mutation in the prothrombin [...] | | Heterozygotes for the common prothrombin [id number] mutation constitute | | | approximately 2% of the normal white population (1,2). | | | References: 1.) Poort et al. Blood 88, 1804-9438 (1995). 2.) Ricardo | | | et al. Circulation 99, 999-1004 (1998). 3.) Al Montalvo, and | | | Chase. Amer J Clin Path 155, 439-47 (2000). This test was | | | developed and its performance characteristics determined by the [facility] | | | [facility]. It has | | | not been cleared or approved by the Food and Drug Administration. | | | FDA approval is not required for clinical use of this test, and | | | therefore validation was done as required under the requirements of | | | the Clinical Laboratory Improvement Act of 1988. The [facility] | | Diagnostic [facility] is a fully | | | licensed and/or accredited clinical laboratory under CLIA, CAP, and | | | the [facility]. Please note that our lab now [...] [facility] | [address] | [place] [address] | | | DIAGNOSTIC | [address] [...] + + + + + | [facility] | [address] | [place] [address] | | | SERVICES, CORE | LONG [...] [facility] | [address] | [place] [address] | | | SERVICES, CORE | PARK [...] [facility] | [address] | [place] [address] | | | SERVICES, CORE | [address] | | | + + + + + INR (12/20/2012 8:39 AM PDT) + +-------+ + + + | Component | Value | Ref Range | Performed | Pathologist | | | | | At | Signature | + +-------+ + + + | INR | 0.98 | 0.90 - 1.20 INR | [facility] | | | | | | LABORATORY [...] + + + + + | [facility] | [address] | [place] [address] | | | SERVICES, [facility] | [address] | | | + [...] | | | | | | Rajendra, [facility] [address] | | | | | | [phone]. | | | | | | Faisal [...] [facility] | [address] | [place], [place] | | | UNIV PTH - INTFC | | [address] | | + + + + + [...] | [facility] | [address] | [place] [address] | | | SERVICES, SPECIAL | PARK [...] + + | Performing | Address | City/State/[facility]code | Phone Number | | Organization | | | | + + + + + | [facility] | [address] | [place] [address] | | | DIAGNOSTIC | [address] [...] + | [facility] - | [address] | [place] [address] | | | [place] | | | [...] | + + + + + | [facility] - | [address] | [place] [address] | | | [place] | | | | + + + [...] + | [facility] - | [address] | [place] [address] | | | [facility] | | | | + + [...] + | [facility] - | [address] | [place] [address] | | | [facility] | | | | + + + [...] less......Not | | | | | | Ggmxnpnm80.0-21.9 | | | | | | U/mL.........Indetermina [...] available | | | | | | [email or web address] | | | | | | vdx.Performed by [facility] | | | | | | [facility] [address] | | | | | | [facility], [place] [address] | | | | | | [phone]. | | | | | | com, [...] [facility] | [address] | [place], [place] | | | UNIV PTH - INTFC | | [address] | | + + + + + [...] | | | Final CULTURE | | PETAL | | | | RESULT:No growth (<1000 [...] + | [facility] - | [address] | [place] [address] | | | [place] | | | [...] + + + + + | [facility] | [address] | [place] [address] | | | SERVICES, [facility] | [address] | | | + [...] by | | | | | | [facility],[address] | | | | | | [address], [facility],[place] | | | | | | [address] | | | | | | [phone]. 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
--- OUTSIDE RECORDS SUMMARY | ~2019-07-14 | XMS | Encounter Summary ---
Demographics + + + | Address | [address] | | | [place] [address] | + + + | Home Phone [...] Author | [facility] | | | and Josephana | + + + | Organization | [facility] [...] Team Providers + +------+ + | Care Recruitment Officer Name | Role | Phone | + +------+ + PCP | Unavailable | + +------+ + Encounter Details +--------+ + + + + | Date | Type | Department | Care Team | Description | +--------+ + + + + | 06/24/ | Hospital | [facility] | Rik Simon MD | | | 2015 | Encounter | [facility] | [address] | | | | | [address] | [place], [place] | | | | | [place], [place] | [address] | | | | | [address] | [phone] | | | | | [phone] | | | +--------+ + + + [...] 06/24/141340 Date of Service: 06/24/141340 Status: Signed Backup Engineer: Merlin Carter RPH (Pharmacist) Clinical Pharmacy Note: [...] - 1.00 mg/dL Final Testing performed at [facility];[address] [place] [address];[place] [address] CREATININE: 7.55 mg/dL ABNORMAL (06/24/14 1045) Estimated creatinine clearance - 14.7 mL/min Pharmacy dosing for renal function per Dr. Simon. Currently, there are no medications needing to be adjusted. Pharmacy will continue to monit or for changes in medication orders and in renal function and adjust accordingly. Merlin Carter, [facility] 06/24/2014 1:41 PM docume nted [...] LAB | | | | Blvd;[place] [address] | | | | + + + + + + | Antibody | NEGATIVE | | EXTERNAL | | | Screen | | | LAB | | + + + + + + | Antibody | Testing performed at | | EXTERNAL | | | Screen | [facility];[address] | | LAB | | | | [address];[place] [address] | | | | + + + + + + | BB BAND | [id number] | | EXTERNAL | | | | | | LAB | | + + + + + + | BB BAND | Testing performed at | | EXTERNAL | | | | [facility];[address] | | LAB | | | | [address];[place] [address] | | | | + + + [...] at [facility] | | | | | | [facility];[place], [place] | | | | | | [address] | | | | + + + [...] | | QUALITATIVE | performed at [facility] | | LAB | | | | [address];[place] | | | | | | [address] | | | | + + + [...] [facility];[address] | mmol/L | LAB | | | | [address];[place] | | | | | | [address] | | | | + + + + + + | K | 4.3Comment: Testing | 3.5 - 4.9 | EXTERNAL | | | | performed at [facility];[address] | mmol/L | LAB | | | | [address];[place] | | | | | | [address] | | | | + + + + + + | Cl | 101Comment: Testing | 99 - 109 mmol/L | EXTERNAL | | | | performed at [facility];[address] | | LAB | | | | [address];[place] | | | | | | [address] | | | | + + + + + + | CO2 | 23Comment: Testing | 23 - 32 mmol/L | EXTERNAL | | | | performed at [facility];[address] | | LAB | | | | [address];[place] | | | | | | [address] | | | | + + + + + + | Anion Gap | 16Comment: Testing | 5 - 20 mmol/L | EXTERNAL | | | | performed at [facility];[address] | | LAB | | | | [address];[place] | | | | | | [address] | | | | + + + + + + | Glucose, | 84Comment: Testing | 65 - 99 mg/dL | EXTERNAL | | | Fasting | performed at [facility];[address] | | LAB | | | | [address];[place] | | | | | | [address] | | | | + + + + + + | BUN | 40 (H)Comment: Testing | 8 - 25 mg/dL | EXTERNAL | | | | performed at [facility];[address] | | LAB | | | | [address];[place] | | | | | | [address] | | | | + + + + + + | Creatinine | 7.55 (H)Comment: Testing | 0.50 - 1.00 | EXTERNAL | | | | performed at [facility];[address] | mg/dL | LAB | | | | [address];[place] | | | | | | [address] | | | | + + + + + + | BUN/Creatin | 5Comment: Testing | | EXTERNAL | | | ine Ratio | performed at [facility];[address] | | LAB | | | | [address];[place] | | | | | | [address] | | | | + + + + + + | Calcium | 9.8Comment: Testing | 8.5 - 10.5 | EXTERNAL | | | | performed at [facility];[address] | mg/dL | LAB | | | | [address];[place] | | | | | | [address] | | | | + + + + + + | Estimated | CALCULATION NOT | mL/min/1.73m2 | EXTERNAL | | | GFR | PERFORMED. RESULT NOT | | LAB | | | | VALID IF AGE LT 20 | | | | | | YEARS.Comment: Testing | | | | | | performed at [facility];[address] | | | | | | [facility];[place], [place] | | | | | | [address] | | | | + + + [...]
--- OUTSIDE RECORDS SUMMARY | ~2019-07-14 | XMS | Encounter Summary ---
Demographics + + + | Address | [address] | | | [place] [address] | + + + | Home Phone [...] Author | [facility] | | | and [place] | + + + | Organization | [facility] | | [...] Team Providers + +------+ + | Care Mcat Tutor Name | Role | Phone | + +------+ + PCP | Unavailable | + +------+ + Encounter Details +--------+ + + + + | Date | Type | Department | Care Team | Description | +--------+ + + + + | 02/12/ | Hospital | [facility] | Nereida Roberson | | | 2008 | Encounter | HOSPITAL EMERGENCY | [address] | | | | | [address] | [address] [place], | | | | | [address] [place], [place] | [place] [address] | | | | | [address] | [phone] | | | | | [phone] | | | +--------+ + + + [...]
--- OUTSIDE RECORDS SUMMARY | ~2019-07-14 | XMS | Encounter Summary ---
Demographics + + + | Address | [address] | | | [place] [address] | + + + | Home Phone [...] | | | | | [place] [address] | | + + + + + | Thania Mallory | ECON | [address] | | | | | [place] [address] | | + + + + + | Deidra Weldon | ECON | [address] | | | | | [place] | | | | | [address] | | + + + + + Care Team Providers + +------+ + | Care Cascara Bark Cutter Name | Role | Phone | [...] Update | | | | Alexander | [facility] | | | | | [facility] | [place], [place] | | | | | [address] [facility] | [address] | | | | | Alexander | | | | | | [facility], | | | | | | [address] [place] [address] | | | | | | [place], [place] | | | | | | [address] | | | | | | [phone] | | | +--------+ + + + [...] [facility] | | | | | | [address] | | | | | | [phone] | | | | | | | | +--------+ + + + + documented as of this encounter Visit Diagnoses Not on filedocumented in this encounter"
--- OUTSIDE RECORDS SUMMARY | ~2019-07-14 | XMS | Encounter Summary ---
Demographics + + + | Address | [address] | | | [place] [address] | + + + | Home Phone [...] Author | [facility] | | | and Josephana | + + + | Organization | [facility] | | [...] Providers + +------+ + | Care Head Automatic Sawyer Name | Role | Phone | [...] | Encounter | JOY | MD Emanuel [address] | | | | | DEPART[address] | [facility] | | | | | [address] | [place], [place] | | | | | [place], [place] | [address] | | | | | [address] | [phone] | | | | | [phone] | | | +--------+ + + + [...]
--- OUTSIDE RECORDS SUMMARY | ~2019-07-14 | XMS | Encounter Summary ---
Demographics + + + | Address | [address] | | | [place] [address] | + + + | Home Phone [...] Author | [facility] | | | and Josephana | + + + | Organization | [facility] [...] + +------+ + | Care Accounts Payable Technician Name | Role | Phone | [...] | | | | [address]) End | [place], [place] | [place], [place] | | | | | stage renal | [address] | [address] Phone: | | | | | disease | Phone: | [phone] | | | | | ([facility]) | [phone] | Fax: | | | | | Infection | Fax: | [phone] | | | | | and | [phone] | | | | | | inflammatory [...] | | [address] | [place], [address] | (Primary Dx); | | | | [place], [place] | [place], [place] | Anemia in ESRD | | | | [address] | [address] | (end-stage renal | | | | [phone] | | disease) ([facility]) | [...] that she is working very closely with [facility] for an LRD allograft from her [...] excellent candidate from her visits here at [facility]. 6. Anemia--Will need to hold the EPO until the Hb is < 11.0 g/dl, while rechecking the Hb weekly. Plan: 1. Will continue to follow her PTH quarterly without Hectorol Rx. 2. Hold the EPO as above, until the Hb is < 11.0 g/dl. 3. Will try to connect with her Transplant Solid Waste Manager at [facility], about re lative timeline of her allograft date. 4. She will follow with Dr. Ibarra in 2 weeks. CC: [place] Fina Joy MD, [facility], [facility] documented in thi s encounter Plan [...]
--- OUTSIDE RECORDS SUMMARY | ~2019-07-14 | XMS | Encounter Summary ---
Demographics + + + | Address | [address] | | | [place] [address] | + + + | Home Phone [...] Author | [facility] | | | and Josephana | + + + | Organization | [facility] [...] Providers + +------+ + | Care Steam And Gas Turbines Assembler Name | Role | Phone | [...] | NEPHROLOGY [address] | [address] | | | | | [address] | [address] [place] | | | | | [place], [place] | [place] [address] | | | | | [address] | [phone] | | | | | [phone] | | | +--------+ + + + [...] form rec eived from Navin Casanova property officer, [facility] regarding housing, do s: 12/08/16. Sent to scan. P DTdocumented in this encounter Plan of Treatment Not on filedocumented as of this encounter Visit Diagnoses Not on filedocumented in this encounter"
--- OUTSIDE RECORDS SUMMARY | ~2019-07-14 | XMS | Encounter Summary ---
Demographics + + + | Address | [address] | | | [place] [address] | + + + | Home Phone [...] | | | | | [place] [address] | | + + + + + | Thania Mallory | ECON | [address] | | | | | [place] [address] | | + + + + + | Deidra Weldon | ECON | [address] | | | | | [place] | | | | | [address] | | + + + + + Care Team Providers + +------+ + | Care Aerobics Teacher Name | Role | Phone | [...] on | | | | [address] [place], | [place], [place] | psychosocial goals | | | | [place] [address] | [address] | related to listing | | | | [phone] | | status) | +--------+ + + [...] Denise | | | | | | [place], [place] | | | | | | [address] | | | | | | [phone] | | | | | | | | +--------+ + + + + documented as of this encounter Visit Diagnoses Not on filedocumented in this encounter"
--- OUTSIDE RECORDS SUMMARY | ~2019-07-14 | XMS | Encounter Summary ---
Demographics + + + | Address | [address] | | | [place] [address] | + + + | Home Phone [...] | Author | [facility] | | | and Josephana | + + + | Organization | [facility] | | [...] Providers + +------+ + | Care Senior Designer/Art Director Name | Role | Phone | [...] + | 02/28/ | Telephone | [facility] | Blake Chavarria | Appointment (Post | | 2013 | | SURGERY [address] | MD Antonieta, FACS [address] | Op) | | | | [place], [place] | [address] | | | | | [address] | [place] [address] | | | | | [phone] | [phone] | | | | | | | [...]
--- OUTSIDE RECORDS SUMMARY | ~2019-07-14 | XMS | Encounter Summary ---
Demographics + + + | Address | [address] | | | [place] [address] | + + + | Home Phone [...] | Author | [facility] | | | and Josephana | + + + | Organization | [facility] | | [...] NEPHROLOGY [address] | MD [address] | intermittent, | | | | [address] | [address] [place] | uncomplicated | | | | [place], [place] | [place] [address] | (Primary Dx) | | | | [address] | [phone] | | | | | [phone] | | | +--------+ + + + [...]
--- OUTSIDE RECORDS SUMMARY | ~2019-07-14 | XMS | Encounter Summary ---
Demographics + + + | Address | [address] | | | [place] [address] | + + + | Home Phone [...] | [facility] | | | and Josephana | + + + | Organization | [facility] | | | and [...] Team Providers + +------+ + | Care Division Traffic Superintendent Name | Role | Phone [...] NEPHROLOGY [address] | MD [address] | intermittent, | | | | [address] | [address] [place] | uncomplicated | | | | [place], [place] | [place] [address] | (Primary Dx) | | | | [address] | [phone] | | | | | [phone] | | | +--------+ + + + [...]
--- OUTSIDE RECORDS SUMMARY | ~2019-07-14 | XMS | Encounter Summary ---
Demographics + + + | Address | [address] | | | [place] [address] | + + + | Home Phone [...] + | Author | [facility] | | | and Josephana | + + + | Organization | [facility] | | | and Josephana [...] Providers + +------+ + | Care Production Solderer Name | Role | Phone | [...] | | stage renal | [address] | [address] [place] [address] | | | | | disease) | Shun Griffin | [place] | | | | | ([facility]) | [address] | [address] [place] | | | | | Anemia in | [place], [place] | [place] | | | | | ESRD | [address] | [address] Phone: | | | | | (end-stage | Phone: | [phone] | | | | | renal | [phone] | Fax: | | | | | disease) | Fax: | [phone] | | | | | ([facility]) | [phone] | | | | | | Procedures [...] | [address] | [place], [address] | (Primary Dx) | | | | [place], [place] | [place], [place] | | | | | [address] | [address] | | | | | [phone] | | | +--------+ + + + [...] having reliable transportation arranged b y the Custodial Aide. She apparently still lacks meaningful plans for [...] last 3 mo. I think that her united auburn Dry wt = 97.5 kg? 3. SHPTH--not [...] our office, myself or Dr. Ibarra. : [place] Fina Joy M.D., Pediatric Nephrology, [facility] documented in t his encounter Plan of Treatment Not on filedocumented as of this encounter Visit Diagnoses + + | Diagnosis | + + | ESRD (end stage renal disease) (HCC) - Primary End stage renal disease | + + documented in this encounter"
--- OUTSIDE RECORDS SUMMARY | ~2019-07-14 | XMS | Encounter Summary ---
Demographics + + + | Address | [address] | | | [place] [address] | + + + | Home Phone [...] Author | [facility] | | | and Josephana | + + + | Organization | [facility] | [...] Providers + +------+ + | Care Clinical Operations Manager Name | Role | Phone | + +------+ + PCP | Unavailable | + +------+ + Encounter Details +--------+ + + + + | Date | Type | Department | Care Team | Description | +--------+ + + + + | 07/31/ | Hospital | [facility] | Conversion | ESRD (end stage | | 2015 | Encounter | CENTER CV INTRA OP | Transaction, | renal disease) (HCC) | | | | [address] | Provider Unknown | | | | | [place], [place] | [phone] | | | | | [address] | | | | | | [phone] | Colten Hutchins MD | | | | | | [address] | | | | | | [place], [place] | | | | | | [address] | | | | | | | [...] 07/31/141620 Date of Service: 07/31/141619 Status: Signed Certified Pathology Assistant: Mervat Harden RN (Registered Nurse) Pt meets d/c criteria. Site c/d/i and soft. Mother providing transportation home. Mervat Harden RN onver arturo Transaction, Provider Unknown - 07/31/2014 3:52 PM PDT Progress Notes by Mervat Harden RN at 07/31/141551 Author: Mervat Harden RN Service: (none) Author Type: Registered Nurse Filed: 07/31/14 0927 Date of Service: 07/31/141551 Status: Signed Certified Pathology Assistant: Mervat Harden RN (Registered Nurse) Pt [...] this | | | patient in the Filling Station Equipment Mechanic holding area. I had a discussion with [...] met this patient | | in the Filling Station Equipment Mechanic holding area. I had a discussion with [...]
--- OUTSIDE RECORDS SUMMARY | ~2019-07-14 | XMS | Encounter Summary ---
Demographics + + + | Address | [address] | | | [place] [address] | + + + | Home Phone [...] Author | [facility] | | | and Josephana | + + + | Organization | [facility] | | [...] Team Providers + +------+ + | Care Latex Ribbon Machine Operator Name | Role | [...] | stage renal | [address] | [address] [place] [address] | | | | | disease) | Shun Griffin | [place] | | | | | ([facility]) | [address] | [address] [place] | | | | | Anemia in | [place], [place] | [place] | | | | | ESRD | [address] | [address] Phone: | | | | | (end-stage | Phone: | [phone] | | | | | renal | [phone] | Fax: | | | | | disease) | Fax: | [phone] | | | | | ([facility]) | [phone] | | | | | | Procedures [...] | | [address] | [place], [address] | (Primary Dx) | | | | [place], [place] | [place], [place] | | | | | [address] | [address] | | | | | [phone] | | | +--------+ + + + [...] she should let myself or the charge account authorizer no. She will be rechecked in 2 weeks. : Chandler Fina documented in t his encounter Plan of Treatment Not on filedocumented as of this encounter Visit Diagnoses + + | Diagnosis | + + | ESRD (end stage renal disease) (HCC) - Primary End stage renal disease | + + documented in this encounter"
--- OUTSIDE RECORDS SUMMARY | ~2019-07-14 | XMS | Encounter Summary ---
Demographics + + + | Address | [address] | | | [place] [address] | + + + | Home Phone [...] | | | | | [place] [address] | | + + + + + | Thania Mallory | ECON | [address] | | | | | [place] [address] | | + + + + + | Deidra Weldon | ECON | [address] | | | | | [place] | | | | | [address] | | + + + + + Care Team Providers + +------+ + | Care Manager Of Financial Reporting Name | Role | Phone | + [...] Update | | | | Alexander | [facility] | | | | | [facility] | [place], [place] | | | | | [address] [facility] | [address] | | | | | Alexander | | | | | | [facility], | | | | | | [address] [place] [address] | | | | | | [place], [place] | | | | | | [address] | | | | | | [phone] | | | +--------+ + + + [...] [facility] | | | | | | [address] | | | | | | [phone] | | | | | | | | +--------+ + + + + documented as of this encounter Visit Diagnoses Not on filedocumented in this encounter"
--- OUTSIDE RECORDS SUMMARY | ~2019-07-14 | XMS | Encounter Summary ---
Demographics + + + | Address | [address] | | | [place] [address] | + + + | Home Phone [...] | | | | | [place] [address] | | + + + + + | Thania Mallory | ECON | [address] | | | | | [place] [address] | | + + + + + | Deidra Weldon | ECON | [address] | | | | | [place] | | | | | [address] | | + + + + + Care Team Providers + +------+ + | Care Art Glass Setter Name | Role | Phone | [...] | | [address] | [facility] | | | | | [place], | [place], [place] | | | | | [place] [address] | [address] | | | | | [phone] | | | +--------+ + + + [...] Denise | | | | | | [place], [place] | | | | | | [address] | | | | | | [phone] | | | | | | | | +--------+ + + + + documented as of this encounter Visit Diagnoses Not on filedocumented in this encounter"
--- OUTSIDE RECORDS SUMMARY | ~2019-07-14 | XMS | Encounter Summary ---
Demographics + + + | Address | [address] | | | [place] [address] | + + + | Home Phone [...] | | | | | [place] [address] | | + + + + + | Thania Mallory | ECON | [address] | | | | | [place] [address] | | + + + + + | Deidra Weldon | ECON | [address] | | | | | [place] | | | | | [address] | | + + + + + [...] MEDICAL [facility]ENTER) | [address] | Rd [place], | | | | | Allergic | [place], [place] | [place] | | | | | purpura | [address] | [address] | | | | | ([facility]) | Phone: | Phone: | | | | | | [phone] | [phone] | | | | | | Fax: | Fax: | | | | | | [phone] | [phone] | +--------+--------+ + + + + Encounter Details +--------+ + + + + | Date | Type | Department | Care Team | Description | +--------+ + + + + | 12/20/ | Hospital | Radiology at [facility] | | | | 2012 | Encounter | [address] [facility] | | | | | | Alexander | | | | | | [facility], | | | | | | 7th floor | | | | | | [place], [place] | | | | | | [address] | | | | | | [phone] | | | +--------+ + + + [...] | | | | | | [place], [place] | | | | | | [address] | | | | | | [phone] | | | | | | | [...] | | + +---------+ + + | [facility] DEPARTMENT OF | | | | | RADIOLOGY | | | | + +---------+ + + documented in this encounter Visit Diagnoses + + | Diagnosis | + + | 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
--- OUTSIDE RECORDS SUMMARY | ~2019-07-14 | XMS | Encounter Summary ---
Demographics + + + | Address | [address] | | | [place] [address] | + + + | Home Phone [...] | | | | | [place] [address] | | + + + + + | Thania Mallory | ECON | [address] | | | | | [place] [address] | | + + + + + | Deidra Weldon | ECON | [address] | | | | | [place] | | | | | [address] | | + + + + + Care Team Providers + +------+ + | Care Lesson Instructor Name | Role | Phone | [...] Param Iraheta | | | | | ([facility]) | Shun Griffin | Alexander | | | | | Procedures | [address] | Children's | | | | | TRANSTHORACI | [place], [place] | [address] | | | | | C | [address] | Floor | | | | | ECHOCARDIOGR | Phone: | [place], [place] | | | | | AM, PEDS | [phone] | [address] | | | | | | Fax: | Phone: | | | | | | [phone] | [phone] | | | | | | | Fax: | | | | | | | [phone] | +--------+--------+ + + + + Reason [...] | Allergic | Sudhakar Castellanos, | Lab [facility] [address] | | | | | conchita | [address] | [facility] | | | | | ([facility]) | Shun Griffin | Alexander | | | | | Procedures | [address] | Children's | | | | | TRANSTHORACI | [place], [place] | [address] | | | | | C | [address] | Floor | | | | | ECHOCARDIOGR | Phone: | [place], [place] | | | | | AM, PEDS | [phone] | [address] | | | | | | Fax: | Phone: | | | | | | [phone] | [phone] | | | | | | | Fax: | | | | | | | [phone] | +--------+--------+ + + + + Encounter Details +--------+ + + + + | Date | Type | Department | Care Team | Description | +--------+ + + + + | 12/20/ | Hospital | Pediatric Echo Lab | | | | 2012 | Encounter | at Alexander | | | | | | [facility] | | | | | | [address] | | | | | | Alexander | | | | | | [facility] | | | | | | 8th Floor [place], | | | | | | [place] [address] | | | | | | [phone] | | | +--------+ + + + [...] Denise | | | | | | [place], [place] | | | | | | [address] | | | | | | [phone] | | | | | | | [...]
--- OUTSIDE RECORDS SUMMARY | ~2019-07-14 | XMS | Encounter Summary ---
Demographics + + + | Address | [address] | | | [place] [address] | + + + | Home Phone [...] + + | Author | [facility] | | | and Josephana | + + + | Organization | [facility] | [...] + +------+ + | Care Sales Representative Public Utilities Name | Role | Phone | + [...] | | stage renal | [address] | [address] [place] [address] | | | | | disease) | Shun Griffin | [place] | | | | | ([facility]) | [address] | [address] [place] | | | | | Anemia in | [place], [place] | [place] | | | | | ESRD | [address] | [address] Phone: | | | | | (end-stage | Phone: | [phone] | | | | | renal | [phone] | Fax: | | | | | disease) | Fax: | [phone] | | | | | ([facility]) | [phone] | | | | | | Procedures [...] | | [address] | [place], [address] | (Primary Dx); | | | | [place], [place] | [place], [place] | Secondary | | | | [address] | [address] | hyperparathyroidism | | | | [phone] | | ([facility]) | +--------+ + [...] 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 Outpatient Prescriptions Marked as Taking for the [...] treatment will eventually subtract f rom her longterm survival. I think that basically she needs [...]
--- OUTSIDE RECORDS SUMMARY | ~2019-07-14 | XMS | Encounter Summary ---
Demographics + + + | Address | [address] | | | [place] [address] | + + + | Home Phone [...] [facility]ly [facility] | | | and [place] | + + + | Organization | [facility] | | | and Josephana [...] Providers + +------+ + | Care Ground Support Equipment Fitter Name | Role | Phone | + +------+ + PCP | Unavailable | + +------+ + Encounter Details +--------+ + + + + | Date | Type | Department | Care Team | Description | +--------+ + + + + | 10/28/ | Hospital | [facility] | Conversion | ESRD (end stage | | 2015 | Encounter | CENTER CV INTRA OP | Transaction, | renal disease) (HCC) | | | | [address] | Provider Unknown | | | | | [place], [place] | [phone] | | | | | [address] | | | | | | [phone] | Colten Hutchins MD | | | | | | [address] | | | | | | [place], [place] | | | | | | [address] | | | | | | | [...] COMPARISON STUDIES: 08/21/2014 | | | PRIMARY INTERNET SALES DIRECTOR: Colten Hutchins MD, PhD, RPVI OPERATIONS: 1. [...] | perianastomotic stenoses. COMPARISON STUDIES: 08/21/2014 PRIMARY INTERNET SALES DIRECTOR: Colten | | MD Liset, PhD, [facility] OPERATIONS:1. Left upper extremity fistulogram2. Ultrasound-guided [...] COMPARISON STUDIES: 08/21/2014 | | | PRIMARY INTERNET SALES DIRECTOR: Colten Hutchins MD, PhD, [facility] OPERATIONS: 1. | | | Left [...] | perianastomotic stenoses. COMPARISON STUDIES: 08/21/2014 PRIMARY INTERNET SALES DIRECTOR: Colten | | MD Liset, PhD, RPVI [...] EXTERNAL | | | | performed at [facility];[address] | K/uL | LAB | | | | [address];[place] | | | | | | [address] | | | | + + + + + + | Red Blood | 3.88Comment: Testing | 3.70 - 5.10 | EXTERNAL | | | Cells | performed at [facility];888 | M/uL | LAB | | | Counted | [address];[place] | | | | | | [address] | | | | + + + + + + | Hemoglobin | 14.1Comment: Testing | 11.3 - 15.5 | EXTERNAL | | | | performed at [facility];888 | g/dL | LAB | | | | [address];[place] | | | | | | [address] | | | | + + + + + + | Hematocrit, | 41.4Comment: Testing | 34.0 - 46.0 % | EXTERNAL | | | POC | performed at [facility];[address] | | LAB | | | | [address];[place] | | | | | | [address] | | | | + + + + + + | MCV | 106.7 (H)Comment: | 80.0 - 100.0 fl | EXTERNAL | | | | Testing performed at | | LAB | | | | [facility];[address] | | | | | [address];[place] [address] | | | | + + + + + + | MCH | 36.4 (H)Comment: Testing | 27.0 - 34.0 pg | EXTERNAL | | | | performed at [facility];[address] | | LAB | | | | [address];[place] | | | | | | [address] | | | | + + + + + + | MCHC | 34.1Comment: Testing | 32.0 - 35.5 | EXTERNAL | | | | performed at [facility];888 | g/dL | LAB | | | | [address];[place] | | | | | | [address] | | | | + + + + + + | RDW-CV | 54.7 (H)Comment: Testing | 37 - 53 fl | EXTERNAL | | | | performed at [facility];[address] | | LAB | | | | [address];[place] | | | | | | [address] | | | | + + + + + + | Platelet | 168Comment: Testing | 150 - 400 K/uL | EXTERNAL | | | Count | performed at [facility];888 | | LAB | | | Plasma | [address];[place] | | | | | | [address] | | | | + + + + + + | MPV | 9.1Comment: Testing | fl | EXTERNAL | | | | performed at [facility];[address] | | LAB | | | | [address];[place] | | | | | | [address] | | | | + + + [...] | performed at [facility] | | | | | | [facility];[place], [place] | | | | | | [address] | | | | + + + [...] EXTERNAL | | | | performed at [facility];888 | mmol/L | LAB | | | | [address];[place] | | | | | | [address] | | | | + + + + + + | K | 3.9Comment: Testing | 3.5 - 4.9 | EXTERNAL | | | | performed at [facility];888 | mmol/L | LAB | | | | [address];[place] | | | | | | [address] | | | | + + + + + + | Cl | 97 (L)Comment: Testing | 99 - 109 mmol/L | EXTERNAL | | | | performed at [facility];[address] | | LAB | | | | [address];[place] | | | | | | [address] | | | | + + + + + + | CO2 | 34 (H)Comment: Testing | 23 - 32 mmol/L | EXTERNAL | | | | performed at [facility];[address] | | LAB | | | | [address];[place] | | | | | | [address] | | | | + + + + + + | Anion Gap | 12Comment: Testing | 5 - 20 mmol/L | EXTERNAL | | | | performed at [facility];[address] | | LAB | | | | [address];[place] | | | | | | [address] | | | | + + + + + + | Glucose, | 87Comment: Testing | 65 - 99 mg/dL | EXTERNAL | | | Fasting | performed at [facility];[address] | | LAB | | | | [address];[place] | | | | | | [address] | | | | + + + + + + | BUN | 23Comment: Testing | 8 - 25 mg/dL | EXTERNAL | | | | performed at [facility];888 | | LAB | | | | [address];[place] | | | | | | [address] | | | | + + + + + + | Creatinine | 6.4 (H)Comment: Testing | 0.50 - 1.00 | EXTERNAL | | | | performed at [facility];888 | mg/dL | LAB | | | | [address];[place] | | | | | | [address] | | | | + + + + + + | BUN/Creatin | 4Comment: Testing | | EXTERNAL | | | ine Ratio | performed at [facility];888 | | LAB | | | | [address];[place] | | | | | | [address] | | | | + + + + + + | Calcium | 9.5Comment: Testing | 8.5 - 10.5 | EXTERNAL | | | | performed at [facility];888 | mg/dL | LAB | | | | [address];[place] | | | | | | [address] | | | | + + + [...] [facility] [place];[address] | | | | | | [address];[place] | | | | | | [address] | | | | + + + [...]
--- OUTSIDE RECORDS SUMMARY | ~2019-07-14 | XMS | Encounter Summary ---
Demographics + + + | Address | [address] | | | [place] [address] [...] | | | | | [place] [address] | | + + + + + | Thania Mallory | ECON | [address] | | | | | [place] [address] | | + + + + + | Deidra Weldon | ECON | [address] | | | | | [place] | | | | | [address] | | + + + + + Care Team Providers + +------+ + | Care Toolman Name | Role | Phone | + [...] 10/24/ | Documentati | Clinical | Kelsi Mratinez, | Referral To | | 2012 | on | Transplant Services | RN [address] | Transplant - Renal | | | | [address] | [facility] | | | | | [place], | [place], [place] | | | | | [place] [address] | [address] | | | | | [phone] | | | +--------+ + + + [...] Denise | | | | | | [place], [place] | | | | | | [address] | | | | | | [phone] | | | | | | | [...]
--- OUTSIDE RECORDS SUMMARY | ~2019-07-14 | XMS | Encounter Summary ---
Demographics + + + | Address | [address] | | | [place] [address] | + + + | Home Phone [...] | | | | | [place] [address] | | + + + + + | Thania Mallory | ECON | [address] | | | | | [place] [address] | | + + + + + | Deidra Weldon | ECON | [address] | | | | | [place] | | | | | [address] | | + + + + + Care Team Providers + +------+ + | Care Sitecore Developer Name | Role | Phone | [...] | | | | | [place], | | | | | | [place] [address] | | | +--------+ + + + [...] Denise | | | | | | [place], [place] | | | | | | [address] | | | | | | [phone] | | | | | | | [...] [facility] - | [address], | [place] [address] | | | IMMUNOGENETICS/TRANS | [address] | | | | [facility] | | | | + + + + + documented in this encounter Visit Diagnoses Not on filedocumented in this encounter"
--- OUTSIDE RECORDS SUMMARY | ~2019-07-14 | XMS | Encounter Summary ---
Demographics + + + | Address | [address] | | | [place] [address] | + + + | Home Phone [...] Team Providers + +------+ + | Care Brain Picker Name | Role | Phone | [...] Unknown | Mechanical | | | | [place], [place] | [phone] | complication of | | | | [address] | | other vascular | | | | [phone] | Darryn Whaley, | device, implant, and | | | | | [address] | graft (HCC) | | | | | [address]VE [place], [place] | | | | | | [address] | | | | | | | [...] venous anastomosis without incidence. | | | [address], [address], [address], [address] | | + + + + + [...] conscious sedation and | | | independent shelter supervision performed throughout the | | | [...] | | | needle and exchanged for 4-Italian micropuncture sheath. Initial | | | fistula [...] | | needle and exchanged for 4 Italian short sheath over 0.03, angled | | | Glidewire. Subsequently, Glidewire was exchanged for 0.014, mailman | | | wire over 4 Italian angled glide catheter. Then, 4 mm x [...] adequate conscious sedation and independent | | shelter supervision performed throughout the procedure. PROCEDURE: Informed [...] micropuncture needle and exchanged | | for 4-Italian micropuncture sheath. Initial fistula pressure was obtained [...] | micropuncture needle and exchanged for 4 Italian short sheath over 0.03, angled | | Glidewire. Subsequently, Glidewire was exchanged for 0.014, mailman wire over 4 Italian | | angled glide catheter. Then, 4 [...] arterial venous | | anastomosis without incidence. 19813, 47187, 48491, 26823 | | | | | |19268, 38689, 28717, 36451 | | | | | + + [...] venous anastomosis without incidence. | | | 53935, 392[address], 67774, 36669 | | + + + + + [...] conscious sedation and | | | independent shelter supervision performed throughout the | | | [...] | | | needle and exchanged for 4-Italian micropuncture sheath. Initial | | | fistula [...] | | needle and exchanged for 4 Italian short sheath over 0.03, angled | | | Glidewire. Subsequently, Glidewire was exchanged for 0.014, mailman | | | wire over 4 Italian angled glide catheter. Then, 4 mm x [...] adequate conscious sedation and independent | | shelter supervision performed throughout the procedure. PROCEDURE: Informed [...] micropuncture needle and exchanged | | for 4-Italian micropuncture sheath. Initial fistula pressure was obtained [...] | micropuncture needle and exchanged for 4 Italian short sheath over 0.03, angled | | Glidewire. Subsequently, Glidewire was exchanged for 0.014, mailman wire over 4 Italian | | angled glide catheter. Then, 4 [...] arterial venous | | anastomosis without incidence. 41920, 52535, 44498, 42795 | | | | | |06253, 30228, 64834, 02296 | | | | | + + documented in this encounter Visit Diagnoses + + | Diagnosis | + + | End stage renal disease (HCC) End stage renal disease | + + | Mechanical complication of other vascular device, implant, and graft | + + documented in this encounter"
--- OUTSIDE RECORDS SUMMARY | ~2019-07-14 | XMS | Encounter Summary ---
Demographics + + + | Address | [address] | | | [place] [address] | + + + | Home Phone [...] Author | [facility] | | | and [place] | + + + | Organization | [facility] | [...] Providers + +------+ + | Care Supervisor Finishing Room Name | Role | Phone | + +------+ + | Jonathan Alonso MD | PCP | | + +------+ + Reason for Visit +--------+ + | Reason | Comments | +--------+ + | DME | [facility]2 | +--------+ + Encounter Details +--------+ + + + + | Date | Type | Department | Care Team | Description | +--------+ + + + + | 03/21/ | Telephone | [facility] | George Torres RN | DME ([facility]) | | 2020 | | [address] | | | | | | [place] | | | | | | [address] | | | | | | [phone] | | | +--------+ + + + [...]
--- OUTSIDE RECORDS SUMMARY | ~2019-07-14 | XMS | Encounter Summary ---
Demographics + + + | Address | [address] | | | [place] [address] | + + + | Home Phone [...] | | | | | [place] [address] | | + + + + + | Thania Mallory | ECON | [address] | | | | | [place] [address] | | + + + + + | Deidra Weldon | ECON | [address] | | | | | [place] | | | | | [address] | | + + + + + Care Team Providers + +------+ + | Care Crab Catcher Name | Role | Phone | + [...] | | | | | Car[place], | | | | | | [place] [address] | | | +--------+ + + + [...] Denise | | | | | | [place], [place] | | | | | | [address] | | | | | | [phone] | | | | | | | [...] [facility] - | [address] | [place] [address] | | | IMMUNOGENETICS/TRANS | [address] [...] [facility] - | [address], | [place] [address] | | | IMMUNOGENETICS/TRANS | [address] [...] [facility] - | [address] | [place] [address] | | | IMMUNOGENETICS/TRANS | [address] | | | | [facility] | | | | + + + + + documented in this encounter Visit Diagnoses + + | Diagnosis | + + | End stage renal disease (HCC) End stage renal disease | + + documented in this encounter"
--- OUTSIDE RECORDS SUMMARY | ~2019-07-14 | XMS | Encounter Summary ---
Demographics + + + | Address | [address] | | | [place] [address] | + + + | Home Phone [...] + | Author | [facility] | | | and [place] | + + + | Organization | [facility] [...] Team Providers + +------+ + | Care Veneer Jointer Helper Name | Role | Phone | [...] | Encounter | JOY | MD Emanuel [address] | | | | | [address] | [facility] | | | | | [address] | [place], [place] | | | | | [place], [place] | [address] | | | | | [address] | [phone] | | | | | [phone] | | | +--------+ + + + [...]
--- OUTSIDE RECORDS SUMMARY | ~2019-07-14 | XMS | Encounter Summary ---
Demographics + + + | Address | [address] | | | [place] [address] | + + + | Home Phone [...] + + | Author | [facility] | | | and [place] | + + + | Organization | [facility] [...] Providers + +------+ + | Care Warehouse Insulation Worker Name | Role | Phone | [...] stage renal | [address] | [address] [place] [address] | | | | | disease) | Shun Griffin | Jaciel Gotti | | | | | ([facility]) | [address] | [address] [place] | | | | | Anemia in | [place], [place] | [place] | | | | | ESRD | [address] | [address] Phone: | | | | | (end-stage | Phone: | [phone] | | | | | renal | [phone] | Fax: | | | | | disease) | Fax: | [phone] | | | | | ([facility]) | [phone] | | | | | | Procedures [...] | [place] | (Primary Dx) | | | | [place], [place] | [place], [place] | | | | | [address] | [address] | | | | | [phone] | | | +--------+ + + + [...]
--- OUTSIDE RECORDS SUMMARY | ~2019-07-14 | XMS | Encounter Summary ---
Demographics + + + | Address | [address] | | | [place] [address] | + + + | Home Phone [...] | | | | | [place] [address] | | + + + + + | Thania Mallory | ECON | [address] | | | | | [place] [address] | | + + + + + | Deidra Weldon | ECON | [address] | | | | | [place] | | | | | [address] | | + + + + + Care Team Providers + +------+ + | Care Special Events Coordinator Name | Role | Phone | [...] | [address] | [address] [place], | | | | | [place], | [place] [address] | | | | | [place] [address] | | | | | | [phone] | | | +--------+ + + + [...] | | | | | | [place] | | | | | | [address] | | | | | | [phone] | | | | | | | | +--------+ + + + + documented as of this encounter Visit Diagnoses Not on filedocumented in this encounter"
--- OUTSIDE RECORDS SUMMARY | ~2019-07-14 | XMS | Encounter Summary ---
Demographics + + + | Address | [address] | | | [place] [address] | + + + | Home Phone [...] | [facility] | | | and [place] | + + + | Organization | [facility] | | [...] Providers + +------+ + | Care Header Up Name | Role | Phone | [...] + + | 03/21/ | Telephone | [facility] | George Torres RN | DME ([facility]) | | 2020 | | [address] | | | | | | [place] | | | | | | [address] | | | | | | [phone] | | | +--------+ + + + [...]
--- OUTSIDE RECORDS SUMMARY | ~2019-07-14 | XMS | Encounter Summary ---
Demographics + + + | Address | [address] | | | [place] [address] | + + + | Home Phone [...] + + | Author | [facility] | | | and [place] | + + + | Organization | [facility] | [...] Dx); Panic disorder | | | | [place], [place] | | | | | | [address] | | | | | | [phone] | | | +--------+ + + + [...]
--- OUTSIDE RECORDS SUMMARY | ~2019-07-14 | XMS | Encounter Summary ---
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
--- OUTSIDE RECORDS SUMMARY | ~2019-07-14 | XMS | Encounter Summary ---
Demographics + + + | Address | [address] | | | [place] [address] | + + + | Home Phone [...] | | | | | [place] [address] | | + + + + + | Thania Mallory | ECON | [address] | | | | | [place] [address] | | + + + + + | Deidra Weldon | ECON | [address] | | | | | [place] | | | | | [address] | | + + + + + [...] [facility] | | | | | [facility] | [place], [place] | | | | | [address] | [address] | | | | | [place] | [phone] | | | | | [facility], | | | | | | [address] [place] [address] | | | | | | [place], [place] | | | | | | [address] | | | | | | [phone] | | | +--------+ + + + [...] | | | | | | [place], [place] | | | | | | [address] | | | | | | [phone] | | | | | | | [...] + + + + + | [facility] | [address] | [place] [address] | [phone] | | HOSPITAL | | | | [...] [address] | [place] [address] | [phone] | | HOSPITAL | | | | + + + + + documented in this encounter Visit Diagnoses Not on filedocumented in this encounter"
--- OUTSIDE RECORDS SUMMARY | ~2019-07-14 | XMS | Encounter Summary ---
Demographics + + + | Address | [address] | | | [place] [address] | + + + | Home Phone [...] Author | [facility] | | | and [place] | + + + | Organization | [facility] [...] Providers + +------+ + | Care Pediatric Np Name | Role | Phone | [...] | | stage renal | [address] | [address] [place] [address] | | | | | disease) | Shun Griffin | [place] | | | | | ([facility]) | [address] | [address] [place] | | | | | Anemia in | [place], [place] | [place], [place] | | | | | ESRD | [address] | [address] Phone: | | | | | (end-stage | Phone: | [phone] | | | | | renal | [phone] | Fax: | | | | | disease) | Fax: | [phone] | | | | | ([facility]) | [phone] | | | | | | Procedures | | | | | | | [place] ESRD | | | | | | [...] M, DO [address] | renal disease) ([facility]) | | | | [address] | [address] | (Primary Dx) | | | | [place], [place] | [place], [place] | | | | | [address] | [address] | | | | | [phone] | | | +--------+ + + + [...] Will recheck her in 2 weeks. : Perth Fina Alonso MD, PhD documented in thi s encounter Plan of Treatment Not on filedocumented as of this encounter Visit Diagnoses + + | Diagnosis | + + | ESRD (end stage renal disease) (HCC) - Primary End stage renal disease | + + documented in this encounter"
--- OUTSIDE RECORDS SUMMARY | ~2019-07-14 | XMS | Encounter Summary ---
Demographics + + + | Address | [address] | | | [place] [address] | + + + | Home Phone [...] | | | | | [place] [address] | | + + + + + | Thania Mallory | ECON | [address] | | | | | [place] [address] | | + + + + + | Deidra Weldon | ECON | [address] | | | | | [place] | | | | | [address] | | + + + + + Care Team Providers + +------+ + | Care Law Firm Consultant Name | Role | Phone | + +------+ + | Shahid Camargo MD | PCP | | + +------+ + Encounter Details +--------+ + + + + | Date | Type | Department | Care Team | Description | +--------+ + + + + | 12/20/ | Hospital | Radiology at [facility] | | | | 2012 | Encounter | [address] | | | | | | [place] | | | | | | [facility], | | | | | | [address] [place] [address] | | | | | | [place], [place] | | | | | | [address] | | | | | | [phone] | | | +--------+ + + + [...] Camelia | | | | | | [place], [place] | | | | | | [address] | | | | | | [phone] | | | | | | | [...] | | | Final/Electronically signed / SHARLENE JODIEJTAI 12/20/2012 9:46 AM | | | | [...]
--- OUTSIDE RECORDS SUMMARY | ~2019-07-14 | XMS | Encounter Summary ---
Demographics + + + | Address | [address] | | | [place] [address] | + + + | Home Phone [...] | | | | | [place] [address] | | + + + + + | Thania Mallory | ECON | [address] | | | | | [place] [address] | | + + + + + | Deidra Weldon | ECON | [address] | | | | | [place] | | | | | [address] | | + + + + + Care Team Providers + +------+ + | Care Can Repairer Name | Role | Phone | [...] [facility] | | | | | [facility] | [place], [place] | | | | | [address] | [address] | | | | | [place] | [phone] | | | | | [facility], | | | | | | [address] [place] [address] | | | | | | [place], [place] | | | | | | [address] | | | | | | [phone] | | | +--------+ + + + [...] Denise | | | | | | [place], [place] | | | | | | [address] | | | | | | [phone] | | | | | | | [...]
--- OUTSIDE RECORDS SUMMARY | ~2019-07-14 | XMS | Encounter Summary ---
Demographics + + + | Address | [address] | | | [place] [address] | + + + | Home Phone [...] | | | | | [place] [address] | | + + + + + | Thania Mallory | ECON | [address] | | | | | [place] [address] | | + + + + + | Deidra Weldon | ECON | [address] | | | | | [place] | | | | | [address] | | + + + + + Care Team Providers + +------+ + | Care Extractions Technologist Name | Role | Phone | [...] Nephrology at | RN [address] | | | | | [place] | [facility] | | | | | [facility] | [place], [place] | | | | | 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
--- OUTSIDE RECORDS SUMMARY | ~2019-07-14 | XMS | Encounter Summary ---
Demographics + + + | Address | [address] | | | [place] [address] | + + + | Home Phone [...] | Author | [facility] | | | and Josephana | + + + | Organization | [facility] | [...] Team Providers + +------+ + | Care Mounter Brass Wind Instruments Name | Role | Phone | + [...] | | [address] | [address] | | | | | [place], [place] | [place], [place] | | | | | [address] | [address] | | | | | [phone] | | | +--------+--------+ + + + [...]
--- OUTSIDE RECORDS SUMMARY | ~2019-07-14 | XMS | Encounter Summary ---
Demographics + + + | Address | [address] | | | [place] [address] | + + + | Home Phone [...] | Author | [facility] | | | and Josephana | + + + | Organization | [facility] [...] Team Providers + +------+ + | Care Watershed Engineer Name | Role | Phone | [...] stage renal | [address] | [address] [place] [address] | | | | | disease) | Shun Griffin | [place] | | | | | (HCC) | [address] | [address] [place] | | | | | Anemia in | [place], [place] | [place], [place] | | | | | ESRD | [address] | [address] Phone: | | | | | (end-stage | Phone: | [phone] | | | | | renal | [phone] | Fax: | | | | | disease) | Fax: | [phone] | | | | | ([facility]) | [phone] | | | | | | Procedures [...] | | [address] | [address] | (Primary Dx) | | | | [place], [place] | [place], [place] | | | | | [address] | [address] | | | | | [phone] | | | +--------+ + + + [...] documented in this encounter Progress Notes Jorje Cmap DO - 01/01/2018 2:15 PM PDT Subjective: [...] She was counseled extensively by myself, the [facility] charge nurse, Elisabeth Quijano RN, and [facility] medical student Yefri Bean MS III, about lifestyle modification, compliance, and her potential risk for increased her vascular morbidity, mortality. 2. 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 I discussed this wi th the renal JIGSAWYER. 3. Monthly lab was reviewed with the patient. 4. Long-term prognosis remains poor, due to her poor to no insight into her chronic health conditions, or health maintenance. : Bee Branch Fina Alonso MD, PhD documented in thi s encounter Plan of Treatment Not on filedocumented as of this encounter Visit Diagnoses + + | Diagnosis | + + | ESRD (end stage renal disease) (HCC) - Primary End stage renal disease | + + documented in this encounter"
--- OUTSIDE RECORDS SUMMARY | ~2019-07-14 | XMS | Encounter Summary ---
Demographics + + + | Address | [address] | | | [place] [address] | + + + | Home Phone [...] | | | | | [place] [address] | | + + + + + | Thania Mallory | ECON | [address] | | | | | [place] [address] | | + + + + + | Deidra Weldon | ECON | [address] | | | | | [place] | | | | | [address] | | + + + + + Care Team Providers + +------+ + | Care Metaphysicist Name | Role | Phone | + [...] Evaluation | | | | [address] [place], | [place], [place] | | | | | [place] [address] | [address] | | | | | [phone] | | | +--------+ + + + [...] [place] | | | | | | [address] | | | | | | [phone] | | | | | | | | +--------+ + + + + documented as of this encounter Visit Diagnoses Not on filedocumented in this encounter"
--- OUTSIDE RECORDS SUMMARY | ~2019-07-14 | XMS | Encounter Summary ---
Demographics + + + | Address | [address] | | | [place] [address] | + + + | Home Phone [...] | | | | | [place] [address] | | + + + + + | Thania Mallory | ECON | [address] | | | | | [place] [address] | | + + + + + | Deidra Weldon | ECON | [address] | | | | | [place] | | | | | [address] | | + + + + + Care Team Providers + +------+ + | Care Egg Packer Name | Role | Phone | [...] [facility] | | | | | [address] [place], | [place], [place] | | | | | [place] [address] | [address] | | | | | [phone] | | | +--------+ + + + [...] | | | | | | [place] | | | | | | [address] | | | | | | [phone] | | | | | | | | +--------+ + + + + documented as of this encounter Visit Diagnoses Not on filedocumented in this encounter"
--- OUTSIDE RECORDS SUMMARY | ~2019-07-14 | XMS | Encounter Summary ---
Demographics + + + | Address | [address] | | | [place] [address] | + + + | Home Phone [...] | | | | | [place] [address] | | + + + + + | Thania Mallory | ECON | [address] | | | | | [place] [address] | | + + + + + | Deidra Weldon | ECON | [address] | | | | | [place] | | | | | [address] | | + + + + + Care Team Providers + +------+ + | Care Order Control Clerk Blood Bank Name | Role | Phone | + +------+ + PCP | Unavailable | + +------+ + Encounter Details +--------+ + + + + | Date | Type | Department | Care Team | Description | +--------+ + + + + | 03/22/ | Abstract | Pediatric | Sudhakar Joy | | | 2013 | | Nephrology at | MD Emanuel [address] [facility] | | | | | Alexander | [address] | | | | | [facility] | [place], [place] | | | | | [address] [facility] | [address] | | | | | Alexander | [phone] | | | | | [facility], | | | | | | [address] [place] [address] | | | | | | [place], [place] | | | | | | [address] | | | | | | [phone] | | | +--------+ + + + [...] Denise | | | | | | [place], [place] | | | | | | [address] | | | | | | [phone] | | | | | | | [...] [address] | [place] | [phone] | | [place] | | | | + + + + + documented in this encounter Visit Diagnoses Not on filedocumented in this encounter"
--- OUTSIDE RECORDS SUMMARY | ~2019-07-14 | XMS | Encounter Summary ---
Demographics + + + | Address | [address] | | | [place] [address] | + + + | Home Phone [...] | | | | | [place] [address] | | + + + + + | Thania Mallory | ECON | [address] | | | | | [place] [address] | | + + + + + | Deidra Weldon | ECON | [address] | | | | | [place] | | | | | [address] | | + + + + + Care Team Providers + +------+ + | Care Impregnator Name | Role | Phone | + [...] | Nephrology at | MD Emanuel [address] [facility] | | | | | Alexander | [facility] | | | | | [facility] | [place], [place] | | | | | [address] [facility] | [address] | | | | | Alexander | [phone] | | | | | [facility], | | | | | | [address] [place] [address] | | | | | | [place], [place] | | | | | | [address] | | | | | | [phone] | | | +--------+ + + + [...] Denise | | | | | | [place], [place] | | | | | | [address] | | | | | | [phone] | | | | | | | [...] | [address] | [place] [address] | [phone] | | HOSPITAL | | | | [...] | [address] | [place] [address] | [phone] | | HOSPITAL | | | | [...] | [address] | [place] [address] | [phone] | | HOSPITAL | | | | [...] [address] | [place] [address] | [phone] | | HOSPITAL | | | | [...] [address] | [place] [address] | [phone] | | HOSPITAL | | | | [...] | [address] | [place] [address] | [phone] | | HOSPITAL | | | | + + + + + documented in this encounter Visit Diagnoses Not on filedocumented in this encounter"
--- OUTSIDE RECORDS SUMMARY | ~2019-07-14 | XMS | Encounter Summary ---
Demographics + + + | Address | [address] | | | [place] [address] | + + + | Home Phone [...] | | | | | [place] [address] | | + + + + + | Thania Mallory | ECON | [address] | | | | | [place] [address] | | + + + + + | Deidra Weldon | ECON | [address] | | | | | [place] | | | | | [address] | | + + + + + Care Team Providers + +------+ + | Care Polisher And Buffer Name | Role | Phone | [...] | MD Emanuel [address] [facility] | f/u appt on | | | | Alexander | [address] | 03/16/12 to [place]) | | | | [facility] | [place], [place] | | | | | [address] | [address] | | | | | Alexander | [phone] | | | | | [facility], | | | | | | [address] [place] [address] | | | | | | [place], [place] | | | | | | [address] | | | | | | [phone] | | | +--------+ + + + [...] Denise | | | | | | [place], [place] | | | | | | [address] | | | | | | [phone] | | | | | | | | +--------+ + + + + documented as of this encounter Visit Diagnoses Not on filedocumented in this encounter"
--- OUTSIDE RECORDS SUMMARY | ~2019-07-14 | XMS | Clinical Summary ---
Demographics + + + | Address | [address] | | | [place] [address] | + + + | Home Phone [...] | Author | [facility] (Historical as of | | | 10-20-18) | + + + | Organization | [facility] (Historical as of | | | 10-20-18) [...] Providers + +------+ + | Care Cigar Maker Name | Role | Phone | [...] | 180 | 2 | 03/2 | | Activ | | (RENVELA) 800 MG | mouth 3 (three) | tablet | | 11/23 | | e | | tablet | times daily with | | | 19 | | | | | meals. | [...] | 30 | 11 | 04/1 | | Activ | | 40 MG tablet | mouth daily. | tablet | | /20 | | e | | | | | | 19 | | | + + +--------+---------+------+------+-------+ | [...] | | | | (Season Ended) | 0 | | | + + + + [...] | Left: | SYNOVIS | | | [id number] | | 0.8x8cm - [id number]: | | Arm | | | | N / | | Qty: 1 on 03/07/2014 by Alfred | | | | | | /[id number] | | Rik Y, MD | | | | | | [...] | | | COVIDIEN | | | [id number] | | 23cmExplanted: Qty: 1 on | | | | | | [id number] / | | 04/08/2014 | | | | | | | | | | | | | | /[id number] | | | | | | | [...] +------+-------+ + | MEDICARE | MEDICA | [id number] | | | [address] | | | RE | | | | [place] [address] | | | IP-OP | | | | | + +--------+ +------+-------+ + | MEDICAID | EASTER | [id number] | | | [address] | | | N | | | | [place] | | | [place] | | | | [address] | | | FUEL OPERATOR | | | | | + [...] Self | [birth year] | Home: | [address] | | | tray/Kvng | | 1994 | [phone] | 3 [place] | | | kamron | | | [address]23 | [address] | + +--------+ +--------+ + +
--- OUTSIDE RECORDS SUMMARY | ~2019-07-14 | XMS | Encounter Summary ---
Demographics + + + | Address | [address] | | | [place] [address] | + + + | Home Phone [...] Author | [facility] | | | and Josephana | + + + | Organization | [facility] | | | [...] Providers + +------+ + | Care Brickmason Helper Name | Role | Phone | [...] + + | 02/24/ | Anesthesia | [facility] | Celso Dacosta | Obesity (BMI | | 2013 | Event | MED CTR OR INTRA OP | MD Douglas [address] | 30.0-34.9) (Primary | | | | [address] | [address] [place] | Dx) | | | | [place] | [address] | | | | | [address] | | | | | | [phone] | | | +--------+ + + + [...] +----+---+ + + | | 0 | [place] | | | | 7 | 43-degrees [...] +----+---+ + + | | 1 | [place] off | | | | 0 | [...] [READ | (present upon arrival to [facility]); | 02/24/14 1045 by | 05/28/18 [...] [READ | (present upon arrival to [facility]); | 02/24/14 1049 by | 05/28/18 [...]
--- OUTSIDE RECORDS SUMMARY | ~2019-07-14 | XMS | Encounter Summary ---
Demographics + + + | Address | [address] | | | [place] [address] | + + + | Home Phone [...] | | | | | [place] [address] | | + + + + + | Thania Mallory | ECON | [address] | | | | | [place] [address] | | + + + + + | Deidra Weldon | ECON | [address] | | | | | [place] | | | | | [address] | | + + + + + Care Team Providers + +------+ + | Care Rail Setter Name | Role | Phone | + +------+ + | Shahid Camargo MD | PCP | | + +------+ + Reason for Visit +--------+ + | Reason | Comments | +--------+ + | Other | Requested [id number] | +--------+ + Encounter Details +--------+ + + + + | Date | Type | Department | Care Team | Description | +--------+ + + + + | 11/15/ | Telephone | Clinical | Jesus Edmond, | Other (Requested | | 2012 | | Transplant Services | [address] | [id number]) | | | | [address] | [facility] | | | | | [address] [place], | [place], [place] | | | | | [place] [address] | [address] | | | | | [phone] | [phone] | | | | | | | [...] | | | | | | [place] | | | | | | [address] | | | | | | [phone] | | | | | | | | +--------+ + + + + documented as of this encounter Visit Diagnoses Not on filedocumented in this encounter"
--- OUTSIDE RECORDS SUMMARY | ~2019-07-14 | XMS | Encounter Summary ---
Demographics + + + | Address | [address] | | | [place] [address] [...] | | | | | [place] [address] | | + + + + + | Thania Mallory | ECON | [address] | | | | | [place] [address] | | + + + + + | Deidra Louise | ECON | [address] | | | | | [place] | | | | | [address] | | + + + + + Care Team Providers + +------+ + | Care Information Security Engineer Name | Role | Phone | [...] | | | | (HCC) [facility] | [place] | [place] | | | | | (Amelie | [address] | Alexander | | | | | nlein | [place], [place] | Children's | | | | | purpura) | [address] | [address] | | | | | nephritis | Phone: | Floor | | | | | (HCC) | [phone] | [place], [place] | | | | | Hemodialysis | Fax: | [address] | | | | | status | [phone] | Phone: | | | | | (HCC) | | [phone] | | | | | Chronic | | Fax: | | | | | kidney | | [phone] | | | | | disease, | [...] | | | | | [address] [place], | [place], [place] | | | | | [place] [address] | [address] | | | | | [phone] | | | +--------+ + + + [...] | | | | | | [place], [place] | | | | | | [address] | | | | | | [phone] | | | | | | | [...] status | | | | | | ([facility]) Chronic | | | | | | kidney disease, | | | | | | stage V ([facility]) | | + +------+--------+ + [...] | | | | | | ([facility] | | | | | | [...] Interface, Cardiology Results - 01/20/2015 2:35 PM [facility] [[email or web address]] Echocardiography Laboratory | | [address] | | [place] [address] | | ; | | [id number] | | | | Transthoracic Echocardiogram Report | | | | | | NAME: DARA LOUISE Study Date: 01/20/2015 1:18:29 PM | | Order #: [id number] ACC #: [id number] | | | | | | : [...] on 01/20/2015 at 2:35:17 PM | | Tractor Sweeper Driver: YARITZA KLINE [address] | | | | | | cc: | | | | | | Modes utilized | | TTE 55974; Spectral Doppler 66419; Color flow Doppler 20064; | | | | | | | | Final | + + + + + + + | Performing | Address | City/State/Zipcode | Phone Number | | Organization | | | | + + + + + | [facility] | [address] | [place], [place] | | | CARDIOLOGY | [address] | [address] | | + + + + + [...] | + + + + + | [facility] | [address] | [place] [address] | | | SERVICES, SPECIAL | [address]ARK [...] + + + | [facility] | [address] | [place] [address] | | | DIAGNOSTIC | [address] [...] | | QUAL, SERUM | | | [place] | | + + + + + + + + | Specimen | + + | Blood - Blood | + + + + + + + | Performing | Address | City/State/Zipcode | Phone Number | | Organization | | | | + + + + + | [facility] | [address] | [place] [address] | | | [place] | | | | + + + [...] + | [facility] | [address] | [place] [address] | | | [place] | | | [...] + | [facility] | [address] | [place] [address] | | | [place] | | | [...] + | [facility] | [address] | [place] [address] | | | [facility] | | | | + [...] by | | | | | | [address] | | | | | | [address]orne [address], [facility],[place] | | | | | | [address] | | | | | | [phone].[employer]. | | | | | | Faisal [...] [facility] | [address] | [place], [place] | | | [facility] | | [address] | | + + + + + [...] + | [facility] | [address] | [place] [address] | | | [place] | | | | + + + [...] by | | | | | | [address] | | | | | | [address], [facility],[place] | | | | | | [address] | | | | | | [phone].[employer]. | | | | | | Faisal [...] [facility] | [address] | [place], [place] | | | [facility] | | [address] | | + + + + + [...] [facility] | [address] | [place] [address] | | | SERVICES, CORE | PARK [...] [facility] | [address] | [place] [address] | | | RIKY, HOMERO | LONG [...] [facility] | [address] | [place] [address] | | | SERVICES, HOMERO | PARK [...] [facility] | [address] | [place] [address] | | | SERVICES, CORE | LONG [...] [facility] | [address] | [place] [address] | | | SERVICES, CORE | PARK [...] | | | LABORATORY | | | [place] | | | SERVICES, | | | [...] the MDRD equation recommended by the | [facility] | | National Kidney Disease Education Program. [...] | [facility] | [address] | [place] [address] | | | HOMERO LAN | LONG [...]
--- OUTSIDE RECORDS SUMMARY | ~2019-07-14 | XMS | Encounter Summary ---
Demographics + + + | Address | [address] | | | [place] [address] | + + + | Home Phone [...] | | | | | [place] [address] | | + + + + + | Thania Mallory | ECON | [address] | | | | | [place] [address] | | + + + + + | Deidra Weldon | ECON | [address] | | | | | [place] | | | | | [address] | | + + + + + Care Team Providers + +------+ + | Care Art Professor Name | Role | Phone | [...] [facility]) | Anil Griffin | Alexander | | | | | Procedures | Long Chahal | Children's | | | | | TRANSTHORACI | [place], [place] | [address] | | | | | C | [address] | Floor | | | | | ECHOCARDIOGR | Phone: | [place], [place] | | | | | AM, PEDS | [phone] | [address] | | | | | | Fax: | Phone: | | | | | | [phone] | [phone] | | | | | | | Fax: | | | | | | | [phone] | +--------+--------+ + + + + Reason [...] | | | [address] | [facility] | | | | | [facility], | [place], [place] | | | | | [place] [address] | [address] | | | | | [phone] | | | +--------+ + + + [...] Tariq | | | | | | [place], [place] | | | | | | [address] | | | | | | [phone] | | | | | | | [...] view image for the detailed interpretation from [employer] results. | CARDIOLOGY | + + + + + | Procedure Note | + + | Interface, Cardiology Results - 12/21/2012 9:38 AM PDT Please click on view image | | for the detailed interpretation from [employer] results. | + + + + + + + | Performing | Address | City/State/Zipcode | Phone Number | | Organization | | | | + + + + + | [facility] | [address] | [place], [place] | | | CARDIOLOGY | [address] | [address] | | + + + + + LIT SRUTHI-B WILEY ZHANG (12/20/2012 10:02 AM PDT) + + | Specimen | + + | Blood - Blood | + + + + + + + | Performing | Address | City/State/Zipcode | Phone Number | | Organization | | | | + + + + + | [facility] - | [address] | [place] [address] | | | IMMUNOGENETICS/TRANS | [address] [...] [facility] - | [address] | [place] [address] | | | IMMUNOGENETICS/TRANS | [address] [...] - | [address] | [place], [place] | | | IMMUNOGENETICS/TRANS | [address] [...] - | [address] | [place], [place] | | | IMMUNOGENETICS/TRANS | [address] [...] [facility] | [address] | [place] [address] | | | IMMUNOGENETICS/TRANS | [address] [...] + | [facility] - | [address] | [place] [address] | | | IMMUNOGENETICS/TRANS | [address] [...] [facility] | | | , SERUM | [facility],[address] | | [address] | | | | [address], [facility],[place] | | PTH - INTFC | | | | [address] | | | | | | [phone].[email or web address]. | | | | | | Faisal [...] [facility] | [address] | [place], [place] | | | UNIV PTH - INTFC | | [address] | | + + + + + [...] [facility] | [address] | [place] [address] | | | SERVICES, CORE | PARK [...] [facility] | [address] | [place] [address] | | | SERVICES, CORE | PARK [...] + | [facility] | [address] | [place] [address] | | | [place] | | | [...] [facility] | [address] | [place] [address] | | | SERVICES, CORE | PARK [...] | + + + + + | [facility] | [address] | [place] [address] | | | SERVICES, CORE | LONG [...] | + + + + + | [facility] | [address] | [place] [address] | | | SERVICES, CORE | PARK [...] + | [facility] - | [address] | [place] [address] | | | [place] | | | [...] at: | | | | | | http://www.cdc.gov/nchstp/tb/pubs/tbfactssheets/689391.htm | | | Test performed by: [facility] [address] [place] [address] | | + + + + + + + + | Performing | Address | City/State/[facility] Hospitalcode | Phone Number | | Organization | | | | + + + + + | [facility] | | | | + [...] | + + + + + | [facility] | [address] | [place] [address] | | | SERVICES, SPECIAL | PARK [...] gene at | DIAGNOSTIC | | nucleotide 94249. Please note that this assay only detects the | LABORATORIES | | [id number] point mutation and therefore a normal result [...] has been analyzed for the presence of [id number] | | | mutation in the prothrombin [...] | | Heterozygotes for the common prothrombin [id number] mutation constitute | | | approximately 2% of the normal white population (1,2). | | | References: 1.) Edwinat et al. Blood 88, 9485-8256 (1995). 2.) Ricardo | | | et al. Circulation 99, 999-1004 (1998). 3.) Al Montalvo, and | | | Chase. Amer J Clin Path 155, 439-47 (2000). This test was | | | developed and its performance characteristics determined by the [facility] | | | [facility] Molecular [...] Laboratory Improvement Act of 1988. The [facility] is a fully | | | licensed and/or accredited clinical laboratory under CLIA, CAP, and | | | the [facility]. Please note that our lab [...] [facility] | [address] | [place] [address] | | | DIAGNOSTIC | [address] [...] | + + + + + | [facility] | [address] | [place] [address] | | | SERVICES, CORE | LONG [...] [facility] | [address] | [place] [address] | | | SERVICES, CORE | PARK [...] [facility] | [address] | [place] [address] | | | SERVICES, CORE | PARK [...] | + + + + + | [facility] | [address] | [place] [address] | | | SERVICES, CORE | LONG [...] | | | | | | Rajendra, [facility] [address] | | | | | | [phone]. | | | | | | Faisal [...] [facility] | [address] | [place], [place] | | | UNIV PTH - INTFC | | [address] | | + + + + + [...] | + + + + + | [facility] | [address] | [place] [address] | | | SERVICES, SPECIAL | LONG [...] + + | Performing | Address | City/State/[facility] Hospitalcode | Phone Number | | Organization | | | | + + + + + | [facility] | [phone] | [place] [address] | | | DIAGNOSTIC | [address] [...] + | [facility] | [address] | [place] [address] | | | [place] | | | [...] + | [facility] | [address] | [place] [address] | | | [place] | | | | + + + [...] | + + + + + | [facility] - | [address] | [place] [address] | | | [place] | | | [...] + | [facility] | [address] | [place] [address] | | | [place] | | | | + + + [...] less......Not | | | | | | Getrvyag59.0-21.9 | | | | | | U/mL.........Indetermina [...] available | | | | | | [email or web address] | | | | | | vdx.Performed by [facility] | | | | | | [facility],[address] | | | | | | [place] [address] | | | | | | [phone]. | | | | | | [facility], Faisal Caraballo, | | | [...] [facility] | [address] | [place], [place] | | | UNIV PTH - INTFC | | [address] | | + + + + + [...] | | | Final CULTURE | | [facility] | | | | RESULT:No growth (<1000 [...] + | [facility] - | [address] | [place] [address] | | | [place] | | | [...] | + + + + + | [facility] | [address] | [place] [address] | | | SERVICES, [place] [facility] [...] by | | | | | | [employer],[address] | | | | | | [address], [facility],[place] | | | | | | [address] | | | | | | [phone].[email or web address]. | | | | | | Faisal [...] [facility] | [address] | [place], [place] | | | UNIV PTH - INTFC | | [address] | | + + + + + [...] | + + + + + | [facility] | [address] | [place] [address] | | | SERVICES, CORE | PARK [...] [facility] | [address] | [place] [address] | | | SERVICES, CORE | PARK [...] | + + + + + | [facility] | [address] | [place] [address] | | | RIKY, HOMERO | LONG [...]
--- OUTSIDE RECORDS SUMMARY | ~2019-07-14 | XMS | Encounter Summary ---
Demographics + + + | Address | [address] | | | [place] [address] | + + + | Home Phone [...] | Author | [facility] | | | and Josephana | + + + | Organization | [facility] | | [...] Team Providers + +------+ + | Care Instruction Assistant Principal Name | Role | Phone | [...] + + | 11/06/ | Hospital | [facility] | Johnathan Brooks, | Chronic right-sided | | 2019 - | Encounter | [facility] | MD Brooks TORRES | heart failure (HCC) | | | | CARE FLOOR [address] | [place] [address] | (Primary Dx); Acute | | 11/09/ | | [address] | [phone] | hypoxemic | | 2019 | | [place], [place] | | respiratory failure | | | | [address] | Darell Kowalski MD | (HCC); Chronic | | | | [phone] | [address]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 [facility] Service: Medicine DISCHARGE SUMMARY Primary Care Physician: [...] [facility]. In the ER patient was evaluated by [...] transferred with the patient's paper documentation from [facility] ER). Initial labs: WBC 6.5, hemoglobin 11.0, [...] suggesting of edema. Taken from Dr. Brooks [facility] (11/06/2018) HOSPITAL COURSE Patient was [...] Surgeon: Blake Chavarria MD ; Location: [facility] MA[facility] OR AV FISTULA REPAIR Left 03/07/2014 Procedure: AV FISTULA - GRAFT REPAIR/REVISION; Surgeon: Rik Simon MD; Location: [facility]; Service: Vascular; Laterality: Left; biopsy of kidney age 10 DIALYSIS FISTULA CREATION 04/08/2014 Procedure: DIALYSIS CATHETER - INSERTION; Surgeon: Rik Simon MD; Location: [facility] ; Service: Vascular; Laterality: N/A; tunneled catheter.br hemodialysis catheter KIDNEY BIOPSY Left 2003 OTHER SURGICAL HISTORY LAPAROSCOPIC PERITONEAL DIALYSIS CATHETER INSERTION - x2 OTHER SURGICAL HISTORY Right 07/2013 LAPAROSCOPIC PERITONEAL DIALYSIS CATHETER INSERTION - current dialysis access MWF dialysis OTHER SURGICAL HISTORY Left 06/24/2014 SUPERFICIALIZATION OF AV FISTULA - Procedure: AV FISTULA - SUPERFICIALIZATION; Surgeon: Emanuel Simon MD; Location: [facility] OR; Service: Vascular; Laterality: Left; OTHER SURGICAL HISTORY Left 04/08/2014 AV FISTULA PLACEMENT - Procedure: AV FISTULA; Surgeon: Rik Simon MD; Location: [facility]; Service: Vascular; Laterality: Left; cephalic OTHER SURGICAL HISTORY Left 03/07/2014 DECLOT GRAFT - Procedure: GRAFT - DECLOT; Surgeon: Rik Simon MD; Location: [facility] ; Service: Vascular; Laterality: Left; peritoneal [...] Value Units Date/Time Culture, Body Fluid Sterile [[id number]] Collected: 11/07/18 1515 Order Status: Completed Lab Status: Preliminary result Updated: 11/09/18 1412 Specimen: Body Fluid from Pleural Fluid, Right Special Requests RIGHT SIDE Special Requests Testing performed at [facility];[address] [place] [address] Gram Stain Result NO CELLS OR ORGANISMS SEEN RESULT NO GROWTH 2 DAYS RESULT Testing performed at [facility], [address] [place] [address] Comment: Testing performed at [facility], [address] [place] [address] Culture, Body Fluid Sterile [[id number]] Order Status: Canceled Lab Status: No result [...] DANIEL Follow Up: Jonathan Alonso MD [address] [facility] [place] [address] In 1 week René Anguiano MD [address] [facility] [address] [place] [address] In [...] her sister. DME equipment order sent to [facility]. She refused oxygen delivery [...] UF. Hypervolemia has improved with HD/UF/thoracentesis. Acute [place] has been ruled out. Recommendations: Plan for [...] for continuity of chart review/care. Dictation software, TranZfinity, was used which may contain error for [...] hypervolemic and has recurrent hyperkalemia/metabolic acidosis. Acute [place] has been ruled out. Recommendations: Plan for [...] for continuity of chart review/care. Dictation software, TranZfinity, was used which may contain error for [...] Pt: Dara Louise AGE/SEX: 23 y.o. ROOM: [address] [place] [address] : 1995 PCP: Jonathan Alonso MD PATIENT [...] and dyspnea. The patient was seen at [facility] ER and then transferred to our internal [...] + | Billie Gupta MD 11/09/2018 9:34 [facility] | | | Center Hemo-Dialysis Procedure [...] | | . 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 Account Associate 240 | | | Constitutional: pt appears [...] Testing | 2.3 - 4.8 mg/dL | [facility] | | | | performed at [facility], [address] | | LABORATORY | | | | [address], | | | | | | [place] [address] | | | | + + + + + + + + | Specimen | + + | Blood | + + + + + + + | Performing | Address | City/State/Zipcode | Phone Number | | Organization | | | | + + + + + | [facility] | [address] | [place] [address] | [phone] | + + + + + Comprehensive [...] Center, | | | | | | [place] [address] | | | | + + + + + + + + | Specimen | + + | Blood | + + + + + + + | Performing | Address | City/State/Zipcode | Phone Number | | Organization | | | | + + + + + | [facility] | [address] | [place] [address] | [phone] | + + + + + CBC [...] LABORATORY | | | | performed at [facility], [address] | | | | | | [address], | | | | | | [place] [address] | | | | | | | | | | + + + + + + + + | Specimen | + + | Blood | + + + + + + + | Performing | Address | City/State/Zipcode | Phone Number | | Organization | | | | + + + + + | [facility] | [address] | [place] [address] | [phone] | + + + + + [place] [...] | | | | | | [address];[place] | | | | | | [address] | | | | + + + + + + + + | Specimen | + + | Blood | + + + + + + + | Performing | Address | City/State/Zipcode | Phone Number | | Organization | | | | + + + + + | [facility] | [address] | [place] [address] | [phone] | + + + + + Comprehensive [...] | | | | performed at [facility], [address] | | | | | | [address], | | | | | | [place] [address] | | | | + + + + + + + + | Specimen | + + | Blood | + + + + + + + | Performing | Address | City/State/Zipcode | Phone Number | | Organization | | | | + + + + + | [facility] | [address] | [place] [address] | [phone] | + + + + + CBC [...] | | | | | at [facility], [address] | | | | | | [address], | | | | | | [place] [address] | | | | | |Testing performed at [facility], [address] [place] [address] | | | | | | | | | | + + +---- + + + + + | Specimen | + + | Blood | + + + + + + + | Performing | Address | City/State/Zipcode | Phone Number | | Organization | | | | + + + + + | [facility] | [address] | [place] [address] | [phone] | + + + + + Protime [...] | | | | | | [address];[place], [place] | | | | | | [address] | | | | + + + + + + + + | Specimen | + + | Blood | + + + + + + + | Performing | Address | City/State/Zipcode | Phone Number | | Organization | | | | + + + + + | [facility] | [address] | [place] [address] | [phone] | + + + + + XR [...] is | | | punctured with an 5-Tajik thoracentesis catheter. Fluid is aspirated | | [...] the pleural space is punctured with an 5-Tajik | | thoracentesis catheter. Fluid is aspirated [...] | | LABORATORY | | | | Blvd;[place] [address] | | | | + + + [...] RESULT | Testing performed at | | [facility] | | | | [facility], [address] [facility] | | LABORATORY | | | | [address] [place], [place] | | | | | | [address]Tfuhqch: Testing | | | | | | performed at [facility], [address] | | | | | | [place], [place] | | | | | | [address] | | | | + + + + + + + + | Specimen | + + | Body Fluid - Pleural | | fluid specimen | | (specimen) | + + + + + + + | Performing | Address | City/State/Zipcode | Phone Number | | Organization | | | | + + + + + | [facility] | [address] | [place] [address] | [phone] | + + + + + Protein, Body Fluid (11/07/2018 3:15 PM PDT) + + + + + + | Component | Value | Ref Range | Performed | Pathologist | | | | | At | Signature | + + + + + + | Protein, | 3.4Comment: This is not | g/dL | [facility] | | | Body Fluid | a manager truck validated | | LABORATORY | | | | sample type for this | | | | | | method. No | | | | | | referenceranges have | | | | | | been established.Testing | | | | | | performed at [facility], [address] | | | | | [address] [facility], | | | | | | [place] [address] | | | | + + + + + + | SOURCE | PLEURAL FLUIDComment: | | MISHEL | | | | Testing performed at | | LABORATORY | | | | [facility];[address] | | | [address];[place] [address] | | | | + + + + + + + + | Specimen | + + | Body Fluid | + + + + + + + | Performing | Address | City/State/Zipcode | Phone Number | | Organization | | | | + + + + + | [facility] | [address] | [place] [address] | [phone] | + + + + + Lactate dehydrogenase, body fluid (11/07/2018 3:15 PM PDT) + + + + + + | Component | Value | Ref Range | Performed | Pathologist | | | | | At | Signature | + + + + + + | Lactate | 102Comment: This is not | U/L | [place] | | | Dehydrogena | a manager truck validated | | LABORATORY | | | se, Body | sample type for this | | | | | Fluid | method. No | | | | | | referenceranges have | | | | | | been established.Testing | | | | | | performed at [facility], [address] | | | | | | [address] [facility], | | | | | | [place] [address] | | | | + + + + + + + + | Specimen | + + | Body Fluid | + + + + + + + | Performing | Address | City/State/Zipcode | Phone Number | | Organization | | | | + + + + + | [facility] | [address] | [place] [address] | [phone] | + + + + + Glucose, Body Fluid (11/07/2018 3:15 PM PDT) + + + + + + | Component | Value | Ref Range | Performed | Pathologist | | | | | At | Signature | + + + + + + | Glucose | 96Comment: This is not a | mg/dL | [facility] | | | Fluid | manager truck validated | | LABORATORY | | | | sample type for this | | | | | | method. No | | | | | | referenceranges have | | | | | | been established.Testing | | | | | | performed at [facility], [address] | | | | | | [address], | | | | | | [place] [address] | | | | + + + + + + | SOURCE | PLEURAL FLUIDComment: | | MISHEL | | | | Testing performed at | | [facility] | | | | [facility];[address] [facility] | | | | | | [address];[place] [address] | | | | + + + + + + + + | Specimen | + + | Body Fluid | + + + + + + + | Performing | Address | City/State/Zipcode | Phone Number | | Organization | | | | + + + + + | [facility] | [address] | [place] [address] | [phone] | + + + + + Cell [...] + + + | BF RBC | <56876 | /mm3 | [facility] | | | [...] | | | Counted | performed at [facility];[address] | | LABORATORY | | | | [address];[place], [place] | | | | | | [address] | | | | + + + + + + + + | Specimen | + + | Body Fluid | + + + + + + + | Performing | Address | City/State/Zipcode | Phone Number | | Organization | | | | + + + + + | [facility] | [address] | [place] [address] | [phone] | + + + + + Amylase, Body Fluid (11/07/2018 3:15 PM PDT) + + + + + + | Component | Value | Ref Range | Performed | Pathologist | | | | | At | Signature | + + + + + + | Amylase, | 46Comment: This is not a | U/L | [facility] | | | Body Fluid | manager truck validated | | LABORATORY | | | | sample type for this | | | | | | method. No | | | | | | referenceranges have | | | | | | been established.Testing | | | | | | performed at [facility], [address] | | | | | | [address] [facility], | | | | | | [place] [address] | | | | + + + + + + + + | Specimen | + + | Body Fluid | + + + + + + + | Performing | Address | City/State/Zipcode | Phone Number | | Organization | | | | + + + + + | [facility] | [address] | [place] [address] | [phone] | + + + + + Albumin, Body Fluid (11/07/2018 3:15 PM PDT) + + + + + + | Component | Value | Ref Range | Performed | Pathologist | | | | | At | Signature | + + + + + + | Albumin, | 2.0Comment: This is not | g/dL | [place] | | | Fluid | a manager truck validated | | LABORATORY | | | | sample type for this | | | | | | method. No | | | | | | referenceranges have | | | | | | been established.Testing | | | | | | performed at [facility], [address] | | | | | | [address], | | | | | | [place] [address] | | | | + + + + + + + + | Specimen | + + | Body Fluid | + + + + + + + | Performing | Address | City/State/Zipcode | Phone Number | | Organization | | | | + + + + + | [facility] | [address] | [place] [address] | [phone] | + + + + + Medical Cytology (11/07/2018 3:15 PM PDT) + + | Specimen | + + | Body Fluid - Pleural | | fluid specimen | | (specimen) | + + + + + | Narrative | Performed At | + + + | ORDERING | [facility] | | PHYSICIAN:Darell Kowalski MD PATIENT NAME:DARA LOUISE RAYEGENDER: | [employer] | | F : 1995 SPECIMEN(S): A [...] preparation was | | | performed by [facility], [address] [place] [address] | | | [place] [address] (Junior Software Developer: Matt Claudio D.O.; CLIA#: | | | [id number]).Professional interpretation was performed by [facility] | | | [facility], [address], | | | [place] [address] (Junior Software Developer: Daniel Larson M.D.; CLIA#: | | | [id number]).6 Diagnostician: Enrrique Nichols | | | TODD([facility])CytotechnologistDiagnostician: Daniel Larson | | | MDPathologistElectronically Signed 11/13/2018 | | |DESCRIPTION: | | |The preparations contain mesothelial cells, rare inflammatory cells, and acellular proteina ceous material. Atypical cytologic findings are not encountered. | | | | | |SPECIMEN ADEQUACY: | | |Satisfactory for Evaluation | | | | | |PERFORMING LABORATORY: | | |Technical preparation was performed by [facility], [address] [place] [address] (Junior Software Developer: Matt Claudio D.O.; CLIA#: [id number]). | | |Professional interpretation was performed by [facility], [address] [address] (Junior Software Developer: Daniel Larson M.D.; CLIA#: [id number]).6 | | | | | |Diagnostician: Enrrique BROOKS([facility]) | | |Global Sales Director | | |Diagnostician: Daniel Larson MD | [...] (H)Comment: 0.04 | 0.00 - 0.04 | [facility] | | | | ng/mL or less [...] at | | | | | | [facility];[address] [facility] | | | | | | Bl;[place] [address] | | | | + + + + + + + + | Specimen | + + | Blood | + + + + + + + | Performing | Address | City/State/Zipcode | Phone Number | | Organization | | | | + + + + + | [facility] | [address] | [place] [address] | [phone] | + + + + + ECG [...] performed at [facility] | | | | | | [address];[place] | | | | | | [address] | | | | + + + + + + + + | Specimen | + + | Blood | + + + + + + + | Performing | Address | City/State/Zipcode | Phone Number | | Organization | | | | + + + + + | [facility] | [address] | [place] [address] | [phone] | + + + + + Platelet Count (11/07/2018 4:03 AM PDT) + + + + + + | Component | Value | Ref Range | Performed | Pathologist | | | | | At | Signature | + + + + + + | Platelet | 185Comment: Testing | 150 - 400 K/uL | [facility] | | | Count | performed at [facility], [address] | | LABORATORY | | | | [address], | | | | | | [place] [address] | | | | + + + + + + + + | Specimen | + + | Blood | + + + + + + + | Performing | Address | City/State/Zipcode | Phone Number | | Organization | | | | + + + + + | [facility] | [address] | [place] [address] | [phone] | + + + + + PTT (11/07/2018 4:03 AM PDT) + + + + + + | Component | Value | Ref Range | Performed | Pathologist | | | | | At | Signature | + + + + + + | PTT | 27Comment: Testing | 23 - 32 seconds | [facility] | | | | performed at [facility];[address] | | LABORATORY | | | | [address];[place], [place] | | | | | | [address] | | | | + + + + + + + + | Specimen | + + | Blood | + + + + + + + | Performing | Address | City/State/Zipcode | Phone Number | | Organization | | | | + + + + + | [facility] | [address] | [place] [address] | [phone] | + + + + + Lactate Dehydrogenase (11/07/2018 4:03 AM PDT) + + + + + + | Component | Value | Ref Range | Performed | Pathologist | | | | | At | Signature | + + + + + + | LDH TOTAL | 202Comment: Testing | 120 - 246 U/L | [facility] | | | | performed at [facility];[address] | | LABORATORY | | | | [address];[place], [place] | | | | | | [address] | | | | + + + + + + + + | Specimen | + + | Blood | + + + + + + + | Performing | Address | City/State/Zipcode | Phone Number | | Organization | | | | + + + + + | [facility] | [address] | [place] [address] | [phone] | + + + + + Magnesium (11/07/2018 4:03 AM PDT) + + + + + + | Component | Value | Ref Range | Performed | Pathologist | | | | | At | Signature | + + + + + + | Magnesium | 2.3Comment: Testing | 1.7 - 2.4 mg/dL | [facility] | | | | performed at [facility];[address] | | LABORATORY | | | | [address];[place] | | | | | | [address] | | | | + + + + + + + + | Specimen | + + | Blood | + + + + + + + | Performing | Address | City/State/Zipcode | Phone Number | | Organization | | | | + + + + + | [facility] | [address] | [place] [address] | [phone] | + + + + + Comprehensive [...] | | | | | [place] [address] | | | | + + + + + + + + | Specimen | + + | Blood | + + + + + + + | Performing | Address | City/State/Zipcode | Phone Number | | Organization | | | | + + + + + | [facility] | [address] | [place] [address] | [phone] | + + + + + Troponin I (11/06/2018 9:54 PM PDT) + + + + + + | Component | Value | Ref Range | Performed | Pathologist | | | | | At | Signature | + + + + + + | Troponin I | 0.045 (H)Comment: 0.04 | 0.00 - 0.04 | [facility] | | | | ng/mL or less [...] at | | | | | | [facility];[address] [facility] | | | | | | [facility];[place] [address] | | | | + + + + + + + + | Specimen | + + | Blood | + + + + + + + | Performing | Address | City/State/Zipcode | Phone Number | | Organization | | | | + + + + + | [facility] | [address] | [place] [address] | [phone] | + + + + + Protime [...] | | | | | | [address];[place] | | | | | | [address] | | | | + + + + + + + + | Specimen | + + | Blood | + + + + + + + | Performing | Address | City/State/Zipcode | Phone Number | | Organization | | | | + + + + + | [facility] | [address] | [place] [address] | [phone] | + + + + + ECHO [...] (H)Comment: 0.04 | 0.00 - 0.04 | [facility] | | | | ng/mL or less [...] at | | | | | | [facility];[address] [facility] | | | | | | [facility];[place] [address] | | | | + + + + + + + + | Specimen | + + | Blood | + + + + + + + | Performing | Address | City/State/Zipcode | Phone Number | | Organization | | | | + + + + + | [facility] | [address] | [place] [address] | [phone] | + + + + + Magnesium (11/06/2018 3:57 PM PDT) + + + + + + | Component | Value | Ref Range | Performed | Pathologist | | | | | At | Signature | + + + + + + | Magnesium | 2.4Comment: Testing | 1.7 - 2.4 mg/dL | [facility] | | | | performed at [facility], [address] | | LABORATORY | | | | [address], | | | | | | [place] [address] | | | | + + + + + + + + | Specimen | + + | Blood | + + + + + + + | Performing | Address | City/State/Zipcode | Phone Number | | Organization | | | | + + + + + | [facility] | [address] | [place] [address] | [phone] | + + + + + documented [...] | | | | | Intravenous, ONCE, [facility] 11/06/18 at | | PM PDT | | | | | 2315, For 1 dose | | | | | | + +-------+ +--------+---+---+ +---+---+ | | | +---+---+ + +-------+ +--------+---+---+ | HYDROmorphone (DILAUDID) | Given | 11/08/19 | 0.5 mg | | | | injection 0.5 mg 0.5 mg, | | 19 5:48 | | | | | Intravenous, ONCE, [facility] 11/07/18 at | | AM PDT | [...]
--- OUTSIDE RECORDS SUMMARY | ~2019-07-14 | XMS | Clinical Summary ---
Demographics + + + | Address | [address] | | | [place] [address] | + + + | Home Phone [...] + | Author | [facility] [employer] (Historical as of | | | 10-20-18) | + + + | Organization | [facility] [employer] (Historical as of | | | 10-20-18) [...] Team Providers + +------+ + | Care Pointer Helper Name | Role | Phone | [...] | Left: | SYNOVIS | | | [id number] | | 0.8x8cm - [id number]: | | Arm | | | | [...] | | | COVIDIEN | | | [id number] | | 23cmExplanted: Qty: 1 on | | | | | | [id number] / | | 04/08/2014 | | | | | | | | | | | | | | /[id number] | | | | | | | [...] +------+-------+ + | MEDICARE | MEDICA | [id number] | | | [address] | | | RE | | | | [place] [address] | | | IP-OP | | | | | + +--------+ +------+-------+ + | MEDICAID | EASTER | [id number] | | | [address] | | | [address] | | | | [place] | | | [place] | | | | [address] | | | [place] | | | | | + [...] | kamron | | | [phone] | [phone] | + +--------+ +--------+ + +
--- OUTSIDE RECORDS SUMMARY | ~2019-07-14 | XMS | Encounter Summary ---
Demographics + + + | Address | [address] | | | [place] [address] | + + + | Home Phone [...] + | Author | [facility] | | | and [place] | + + + | Organization | [facility] | [...] Team Providers + +------+ + | Care Doctor Chiropractic Name | Role | Phone | + [...] | | [address] | [place] | (Primary Dx) | | | | [place], [place] | [place], [place] | | | | | [address] | [address] | | | | | [phone] | | | +--------+ + + + [...]
--- OUTSIDE RECORDS SUMMARY | ~2019-07-14 | XMS | Encounter Summary ---
Demographics + + + | Address | [address] | | | [place] [address] | + + + | Home Phone [...] + | Author | [facility] | | | and Josephana | + + + | Organization | [facility] | | | and Josephana | [...] Team Providers + +------+ + | Care Strategy Manager Name | Role | Phone [...] + + | 04/18/ | Hospital | [facility] | French Alexandre DO | ESRD needing | | 2020 - | Encounter | [facility] | [address] [place] | dialysis (HCC) | | | | CARE FLOOR [address] | [address] [place], [place] | (Primary Dx); | | 04/23/ | | [address] | [address] | Hypervolemia, | | 2019 | | [place], [place] | [phone] | unspecified | | | | [address] | | hypervolemia type; | | | | [phone] | Daniela Lara MD | Noncompliance with | | | | | [address] | renal dialysis | | | | | [place] [address] | (FORMERLY [facility]); | | | | | [phone] | Costochondritis; | | | | | | Recurrent right | | | | | Arash Bonilla MD | pleural effusion; | | | | | [address] | Acute on chronic | | | | | [place] [address] | combined systolic | | | | | [phone] | and diastolic CHF | | | [...] be different fr om the original. [facility] Service: Hospitalist Discharge Summary Patient Name: [...] given PRN Dilaudid, PRN Phenergan and PRN [place]. Gradually her symptoms are improved. At home [...] the pleural space is punctured with an 5-[place] thoracentesis catheter. Fluid is aspirated w ithout [...] file. Follow up: Jonathan Alonso MD [address] [facility] [place] [id number] In 2 weeks Discharge Medications New Medications [...] through Care Everywhere.Acetaminophen; Hydrocodone tablets or capsules (Armenian)documented in this encounter Medications at Time [...] ESRD who follows up with Dr. Jonathan Alnoso MD as primary care provider. 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 She is historically non adherent to dialysis/dietary fluid/K/Po4/ Na restriction. She is normally dialyzed on a Monday, Monday, Monday schedule at [facility] using left upper extremity AV fistula. She used to see Dr. Trent Camp but switched to Dr. Anguiano. She also has combined diastolic/systolic congestive heart failure and was recently hospital ized at [facility] with hypervolemia and right pleural effusion (12/10/18-12/14/18). [...] was completed later after rounds. Dictation software, Goodzer, was used which may contain error for [...] MD - 0 04/22/2019 12:49 PM PST [facility] Service: Hospitalist Progress Note Hospital Day: [...] also had hyperkalemia, large right pleural effusion. 04/19/[id number]-vwglw thoracentesis done and 1500 mL fluid removed Receiving HD Subjective and overnight events : Complain of right-sided chest pain. Complain of mil d shortness of breath. This morning she did not want to take [place], and asked for Dilaudid. Receiving dialysis currently. [...] Abnormal ECG Confirmed by Maurice Bowers MD ([id number]) on 04/22/2019 12:26:15 PM Comprehensive Metabolic Panel [...] mL/min/1.73m2 No results for input(s): PHART, PO2ART, KHT1NBD, Q0LHUOTT, BEART in the last 168 hours. Recent [...] this chart may have been created with Goodzer voice recognition software. Occasi onal wrong-word or [...] who [facility]. 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 She is historically non adherent to dialysis/dietary fluid/K/Po4/ Na restriction. She is normally dialyzed on a Monday, Monday, Monday schedule at [facility] using left upper extremity AV fistula. She used to see Dr. Trent Camp but switched to Dr Sujit Anguiano. She also has combined diastolic/systolic congestive heart failure and was recently hospital ized at [facility] with hypervolemia and right pleural effusion(12/10/18-12/14/18). She [...] was completed later after rounds. Dictation software, Goodzer, was used which may contain error for [...] MD - 0 04/21/2019 10:39 AM PST [facility] Service: Hospitalist Progress Note Hospital Day: [...] also had hyperkalemia, large right pleural effusion. 04/19/[id number]-ajefp thoracentesis done and 1500 mL fluid removed [...] mL/min/1.73m2 No results for input(s): PHART, PO2ART, NIC2MDH, J4OAFHPZ, BEART in the last 168 hours. Recent [...] the pleural space is punctured with an 5-[place] Islander thoracentesis catheter. Fluid is aspirated w ithout [...] of IV Dilaudid today and adding PRN [place]. Medication changes plan discussed with patient and she is in agreement with current plan of care, questions answered Disposition: Inpatient Code Status: Full Code Part of this record may have been copied from previous notes to maintain continuity of care . Portions of this chart may have been created with Goodzer voice recognition software. Occasi onal wrong-word or sound-alike substitutions may have occurred due to the inherent livingston itations of voice recognition software. Please read the chart carefully and recognize, using context, where these substitutions have occurred. Arash Bonilla MD 04/21/2019 10:39 AM Arash Perez MD - 04/20/2019 11:20 AM PST [facility] Service: Hospitalist Progress Note Hospital Day: [...] also had hyperkalemia, large right pleural effusion. 04/19/[id number]-ikghg thoracentesis done and 1500 mL fluid removed [...] 0.25 mg 0.25 mg Oral Daily PRN Danilea Lara MD 0.25 mg at 04/18/192055 hydrALAZINE [...] mL/min/1.73m2 No results for input(s): PHART, PO2ART, GHW3FFJ, S6DWHDXF, BEART in the last 168 hours. Recent [...] the pleural space is punctured with an 5-[place] Islander thoracentesis catheter. Fluid is aspirated w ithout [...] this chart may have been created with Goodzer voice recognition software. Occasi onal wrong-word or sound-alike substitutions may have occurred due to the inherent livingston itations of voice recognition software. Please read the chart carefully and recognize, using context, where these substitutions have occurred. Arash Bonilla MD 04/20/2019 11:20 AM Arash Perez MD - 04/19/2019 2:47 PM PST [facility] Service: Hospitalist Progress Note Hospital Day: [...] also had hyperkalemia, large right pleural effusion. 04/19/[id number]-qvyvl-hxcqm thoracentesis done and 1500 mL fluid removed [...] FLUID No results for input(s): PHART, PO2ART, VLQ2VMV, J3TXWCVM, BEART in the last 168 hours. Recent [...] the pleural space is punctured with an 5-[place] thoracentesis catheter. Fluid is aspirated w ithout [...] this chart may have been created with Goodzer voice recognition software. Occasi onal wrong-word or [...] on a Monday, Monday, Monday schedule at [facility] using left upper extremity AV fistula. She used to see Dr. Trent Camp but switched to Dr. Anguiano. She also has combined diastolic/systolic congestive heart failure and was recently hospital ized at [facility] with hypervolemia and right pleural effusion(12/10/18-12/14/18). She [...] was completed later after rounds. Dictation software, Goodzer, was used which may contain error for [...] on a Monday, Monday, Monday schedule at [facility] using left upper extremity AV fistula. She used to see Dr. Trent Camp but switched to Dr. Anguiano. She also has combined diastolic/systolic congestive heart failure and was recently hospital ized at [facility] with hypervolemia and right pleural effusion (12/10/18-12/14/18). [...] | | space is punctured with an 5-[place] thoracentesis catheter. Fluid is [...] the pleural space is punctured with an 5-[place] Islander | | thoracentesis catheter. [...] | | | | | performed at [facility];[address] | | | | | | [facility];[place], [place] | | | | | | [address] | | | | + + + + + + + + | Specimen | + + | Blood | + + + + + + + | Performing | Address | City/State/Zipcode | Phone Number | | Organization | | | | + + + + + | [facility] | [address] | [place] [address] | [phone] | + + + + + ECG [...] | | | | | [place] [address] | | | | + + + + + + + + | Specimen | + + | Blood | + + + + + + + | Performing | Address | City/State/Zipcode | Phone Number | | Organization | | | | + + + + + | [facility] | [address] | [place] [address] | [phone] | + + + + + Troponin [...] at | | | | | | [facility];[address] [place] [address] | | | | | | [facility];[place] [address] | | | | + + + + + + + + | Specimen | + + | Blood | + + + + + + + | Performing | Address | City/State/Zipcode | Phone Number | | Organization | | | | + + + + + | [facility] | [address] | [place] [address] | [phone] | + + + + + Basic [...] 19 (L)Comment: GFR <60: | >60 | [facility] | | | GFR | [...] | | | | | performed at [facility];[address] | | | | | | [facility];[place], [place] | | | | | | [address] | | | | + + + + + + + + | Specimen | + + | | + + + + + + + | Performing | Address | City/State/Zipcode | Phone Number | | Organization | | | | + + + + + | [facility] | [address] | [place] [address] | [phone] | + + + + + Basic [...] 32 (L)Comment: GFR <60: | >60 | [facility] | | | GFR | [...] | | | | | performed at [facility];[address] | | | | | | [facility];[place], [place] | | | | | | [address] | | | | + + + + + + + + | Specimen | + + | Blood | + + + + + + + | Performing | Address | City/State/Zipcode | Phone Number | | Organization | | | | + + + + + | [facility] | [address] | [place] [address] | [phone] | + + + + + XR [...] | pleural space is punctured with an 5-[place] thoracentesis catheter. | | | Fluid is [...] the pleural space is punctured with an 5-[place] | | thoracentesis catheter. [...] | | | Body Fluid | a installation and repair technician validated | | LABORATORY | | | | sample type for this | | | | | | method. No | | | | | | referenceranges have | | | | | | been established.Testing | | | | | | performed at [facility], [address] | | | | [address], | | | | | | [place] [address] | | | | + + + + + + | SOURCE | THORACENTESIS | | KR | | | | FLUIDComment: Testing | | LABORATORY | | | | performed at [facility];[address] | | | | | | [address];[place] | | | | | | [address] | | | | + + + + + + + + | Specimen | + + | Body Fluid | + + + + + + + | Performing | Address | City/State/Zipcode | Phone Number | | Organization | | | | + + + + + | [facility] | [address] | [place] [address] | [phone] | + + + + + Cell [...] | | | Counted | performed at [facility];[address] | | LABORATORY | | | | [address];[place], [place] | | | | | | [address] | | | | + + + + + + + + | Specimen | + + | Body Fluid | + + + + + + + | Performing | Address | City/State/Zipcode | Phone Number | | Organization | | | | + + + + + | [facility] | [address] | [place] [address] | [phone] | + + + + + Lactate dehydrogenase, body fluid (04/19/2019 10:26 AM PST) + + + + + + | Component | Value | Ref Range | Performed | Pathologist | | | | | At | Signature | + + + + + + | Lactate | 98Comment: This is not a | U/L | [facility] | | | Dehydrogena | installation and repair technician validated | | LABORATORY | | | se, Body | sample type for this | | | | | Fluid | method. No | | | | | | referenceranges have | | | | | | been established.Testing | | | | | | performed at [facility], [address] | | | | | | [address] [facility], | | | | | | [place] [address] | | | | + + + + + + + + | Specimen | + + | Body Fluid | + + + + + + + | Performing | Address | City/State/Zipcode | Phone Number | | Organization | | | | + + + + + | [facility] | [address] | [place] [address] | [phone] | + + + + + Protein, Total (04/19/2019 4:49 AM PST) + + + + + + | Component | Value | Ref Range | Performed | Pathologist | | | | | At | Signature | + + + + + + | Protein, | 6.4Comment: Testing | 6.3 - 8.2 g/dL | [facility] | | | Total | performed at [facility];[address] | | LABORATORY | | | | [address];[place], [place] | | | | | | [address] | | | | + + + + + + + + | Specimen | + + | Blood | + + + + + + + | Performing | Address | City/State/Zipcode | Phone Number | | Organization | | | | + + + + + | [facility] | [address] | [place] [address] | [phone] | + + + + + Lactate [...] [facility] | | | | performed at [facility];[address] | | LABORATORY | | | | [address] [facility];[place], [place] | | | | | | [address] | | | | + + + + + + + + | Specimen | + + | Blood | + + + + + + + | Performing | Address | City/State/Zipcode | Phone Number | | Organization | | | | + + + + + | [facility] | [address] | [place] [address] | [phone] | + + + + + CBC [...] 0.02Comment: Testing | 0.00 - 0.10 | [facility] | | | Absolute | performed at [facility], [address] | [address] | LABORATORY | | | | [address], | | | | | | [place] [address] | | | | + + + + + + + + | Specimen | + + | Blood | + + + + + + + | Performing | Address | City/State/Zipcode | Phone Number | | Organization | | | | + + + + + | [facility] | [address] | [place] [address] | [phone] | + + + + + Basic [...] W | | | | | | [facility], | | | | | | [place] [address] | | | | + + + + + + + + | Specimen | + + | Blood | + + + + + + + | Performing | Address | City/State/Zipcode | Phone Number | | Organization | | | | + + + + + | [facility] | [address] | [place] [address] | [phone] | + + + + + XR Chest 2 Vws (04/18/2019 2:03 PM PST) + + | Specimen | + + | | + + + + + | Impressions | Performed At | + + + | Increased, now large right pleural effusion with associated | [facility] | | atelectasis.. Signed by: Eliza Galvan, Florian Sign | | | Date/Time: 04/18/2019 [...] B | NON REACTIVEComment: | NR | [facility] | | | Surface Ag | Testing performed at | | LABORATORY | | | | [facility], [address] | | | | | | [place] | | | | | | [address] | | | | + + + + + + + + | Specimen | + + | Blood | + + + + + + + | Performing | Address | City/State/Zipcode | Phone Number | | Organization | | | | + + + + + | [facility] | [address] | [place] [address] | [phone] | + + + + + Hepatitis [...] [address], | | | | | | [place] [address] | | | | + + + + + + + + | Specimen | + + | Blood | + + + + + + + | Performing | Address | City/State/Zipcode | Phone Number | | Organization | | | | + + + + + | [facility] | [address] | [place] [address] | [phone] | + + + + + Hepatitis B Core Ab, Total (04/18/2019 1:32 PM PST) + + + + + + | Component | Value | Ref Range | Performed | Pathologist | | | | | At | Signature | + + + + + + | Hepatitis B | NON REACTIVEComment: | NR | [facility] | | | Core Ab | Testing performed at | | LABORATORY | | | Total | [facility], [address] | | | | | | [place] | | | | | | [address] | | | | + + + + + + + + | Specimen | + + | Blood | + + + + + + + | Performing | Address | City/State/Zipcode | Phone Number | | Organization | | | | + + + + + | [facility] | [address] | [place] [address] | [phone] | + + + + + Phosphorus [...] HOSPITAL | | | | performed at [facility];[address] | | LABORATORY | | | | [address];[place] | | | | | | [address] | | | | + + + + + + + + | Specimen | + + | Blood | + + + + + + + | Performing | Address | City/State/Zipcode | Phone Number | | Organization | | | | + + + + + | [facility] | [address] | [place] [address] | [phone] | + + + + + D-Dimer (04/18/2019 1:32 PM PST) + + + + + + | Component | Value | Ref Range | Performed | Pathologist | | | | | At | Signature | + + + + + + | D-DIMER | 1.37 (H)Comment: D Dimer | 0.19 - 0.50 | [facility] | | | | results less [...] | | | | | performed at [facility];[address] | | | | | | [facility];[place], [place] | | | | | | [address] | | | | + + + + + + + + | Specimen | + + | Blood | + + + + + + + | Performing | Address | City/State/Zipcode | Phone Number | | Organization | | | | + + + + + | [facility] | [address] | [place] [address] | [phone] | + + + + + Protime [...] | | | | | performed at [facility];[address] | | | | | | [address];[place], [place] | | | | | | [address] | | | | + + + + + + + + | Specimen | + + | Blood | + + + + + + + | Performing | Address | City/State/Zipcode | Phone Number | | Organization | | | | + + + + + | [facility] | [address] | [place] [address] | [phone] | + + + + + Comprehensive [...] 6 (L)Comment: GFR <60: | >60 | [facility] | | | GFR | [...] | | | | | | MDRD [facility] traceable | | | | | | equation.Testing | | | | | | performed at [facility];[address] | | | | | | [facility];[place], [place] | | | | | | [address] | | | | + + + + + + + + | Specimen | + + | Blood | + + + + + + + | Performing | Address | City/State/Zipcode | Phone Number | | Organization | | | | + + + + + | [facility] | [address] | [place] [address] | [phone] | + + + + + CBC [...] | | | Absolute | performed at [facility];[address] | [address] | LABORATORY | | | | [address];[place], [place] | | | | | | [address] | | | | + + + + + + + + | Specimen | + + | Blood | + + + + + + + | Performing | Address | City/State/Zipcode | Phone Number | | Organization | | | | + + + + + | [facility] | [address] | [place] [address] | [phone] | + + + + + ECG [...] (500), | | | | | | image editor Parvez Calderón | | | | [...] | + + | ESRD needing dialysis ([facility]) End [...] | | | | First dose on [facility] 04/18/19 at | | AM PST [...] | | | | | dose on [facility] 04/18/19 at 1800 | | AM [...] | | | | | CONTINUOUS, Starting [facility] 04/18/19 | | | | | [...] | | | | DIALYSIS - ONCE, [facility] 04/18/19 at | | | | [...] PST | | | | | ONCE, [facility] 04/18/19 at 1420, For 1 | [...] PST | | | | | Starting [facility] 04/18/19 at 1717, | | | [...] AM PST | | | | | [facility] 04/18/19 at 1724, Do not cut [...] - PRN, Hypotension, | | | Starting [facility] 04/18/19 at 1720, | | | [...] - PRN, Hypotension, | | | Starting [facility] 04/22/19 at 0858, | | [...]
--- OUTSIDE RECORDS SUMMARY | ~2019-07-14 | XMS | Encounter Summary ---
Demographics + + + | Address | [address] | | | [place] [address] | + + + | Home Phone [...] | | | | | [place] [address] | | + + + + + | Thania Mallory | ECON | [address] | | | | | [place] [address] | | + + + + + | Deidra Weldon | ECON | [address] | | | | | [place] | | | | | [address] | | + + + + + Care Team Providers + +------+ + | Care Shake Maker Name | Role | Phone | [...] Hoffmann Elias | [facility] | referral) | | | | Caro [facility], | [place], [place] | | | | | [place] [address] | [address] | | | | | [phone] | | | +--------+ + + + [...] [facility] | | | | | | [address] | | | | | | [phone] | | | | | | | | +--------+ + + + + documented as of this encounter Visit Diagnoses Not on filedocumented in this encounter"
--- OUTSIDE RECORDS SUMMARY | ~2019-07-14 | XMS | Encounter Summary ---
Demographics + + + | Address | [address] | | | [place] [address] | + + + | Home Phone [...] | [facility] | | | and [place] | + + + | Organization | [facility] | | [...] + +------+ + | Care Public Health Doctor Name | Role | Phone | + +------+ + PCP | Unavailable | + +------+ + Encounter Details +--------+ + + + + | Date | Type | Department | Care Team | Description | +--------+ + + + + | 04/08/ | Hospital | [facility] | Rik Simon MD | | | 2015 | Encounter | [facility] | [address] | | | | | [address] | [place], [place] | | | | | [place], [place] | [address] | | | | | [address] | [phone] | | | | | [phone] | | | +--------+ + + + [...] 142 Date of Service: 04/08/141425 Status: Signed Security Associate: Coral Amador RPH (Pharmacist) Clinical Pharmacy Note - Renal Dose Adjustment Dara Weldon 19 y.o. female Ht Readings from Last 1 Encounters: 04/08/14 1.676 m (5' 6") (75 %*, Z = 0.69) * Growth percentiles are based on [facility] 2-20 Years data. Wt Readings from Last 1 Encounters: 04/08/14 96.2 kg (212 lb 1.3 oz) (98 %*, Z = 2.12) * Growth percentiles are based on [facility] 2-20 Years data. CREATININE Date Value Ref Range Status 04/08/2014 8.68* 0.50 - 1.00 mg/dL Final Testing performed at [facility];[address] [place] [address];[place] [address] ESRD on HD Pharmacy to renally adjust [...] Note by Cheryl Rubalcava RN at 04/08/14 2054 Author: Cheryl Rubalcava RN Service: (none) Author Type: Registered Nurse Filed: 04/08/14 1443 Date of Service: 04/08/141407 Status: Signed Security Associate: Cheryl Rubalcava RN (Registered Nurse) Pt and [...] 132 Date of Service: 04/08/141320 Status: Signed Security Associate: Cheryl Rubalcava RN (Registered Nurse) Pt family [...] LAB | | | | Blvd;[place] [address] | | | | + + + + + + | Antibody | NEGATIVE | | EXTERNAL | | | Screen | | | LAB | | + + + + + + | Antibody | Testing performed at | | EXTERNAL | | | Screen | [facility];[address] | | LAB | | | | [address];[place] [address] | | | | + + + + + + | BB BAND | [id number] | | EXTERNAL | | | | | | LAB | | + + + + + + | BB BAND | Testing performed at | | EXTERNAL | | | | [facility];[address] | | LAB | | | | [address]vd;[place] [address] | | | | + + + [...] [place] | | | | | | [address] | | | | + + + + + + | K | 4.1Comment: SLT | 3.5 - 4.9 | EXTERNAL | | | | HEMOLYSISTesting | mmol/L | LAB | | | | performed at [facility];[address] | | [address];[place] | | | | | | [address] | | | | + + + + + + | Cl | 102Comment: Testing | 99 - 109 mmol/L | EXTERNAL | | | | performed at [facility];[address] | | LAB | | | | [address];[place] | | | | | | [address] | | | | + + + + + + | CO2 | 28Comment: Testing | 23 - 32 mmol/L | EXTERNAL | | | | performed at [facility];[address] | | LAB | | | | [address];[place] | | | | | | [address] | | | | + + + + + + | Anion Gap | 13Comment: Testing | 5 - 20 mmol/L | EXTERNAL | | | | performed at [facility];[address] | | LAB | | | | [address];[place] | | | | | | [address] | | | | + + + + + + | Glucose, | 87Comment: Testing | 65 - 99 mg/dL | EXTERNAL | | | Fasting | performed at [facility];[address] | | LAB | | | | [address];[place] | | | | | | [address] | | | | + + + + + + | BUN | 32 (H)Comment: Testing | 8 - 25 mg/dL | EXTERNAL | | | | performed at [facility];[address] | | LAB | | | | [address];[place] | | | | | | [address] | | | | + + + + + + | Creatinine | 8.68 (H)Comment: Testing | 0.50 - 1.00 | EXTERNAL | | | | performed at [facility];[address] | mg/dL | LAB | | | | [address];[place] | | | | | | [address] | | | | + + + + + + | BUN/Creatin | 4Comment: Testing | | EXTERNAL | | | ine Ratio | performed at [facility];[address] | | LAB | | | | [address];[place] | | | | | | [address] | | | | + + + + + + | Calcium | 8.8Comment: NOTE NEW | 8.5 - 10.5 | EXTERNAL | | | | REFERENCE RANGETesting | mg/dL | LAB | | | | performed at [facility];[address] | | | | | | [address] [facility];[place], [place] | | | | | | [address] | | | | + + + [...] | | | | | [address];[place], [place] | | | | | | [address] | | | | + + + [...]
--- OUTSIDE RECORDS SUMMARY | ~2019-07-14 | XMS | Encounter Summary ---
Demographics + + + | Address | [address] | | | [place] [address] | + + + | Home Phone [...] | | | | | [place] [address] | | + + + + + | Thania Mallory | ECON | [address] | | | | | [place] [address] | | + + + + + | Deidra Weldon | ECON | [address] | | | | | [place] | | | | | [address] | | + + + + + Care Team Providers + +------+ + | Care Spinner Fixer Name | Role | Phone | [...] | purpura | [address] | [facility] [address] | | | | | (HCC) [facility] | [address] | [address] | | | | | (Amelie | [address] | [place] | | | | | nlein | [place], [place] | Children's | | | | | purpura) | [address] | [facility] 7th | | | | | nephritis | Phone: | Floor | | | | | ([facility]) | [phone] | [place] [address], [place] | | | | | Hemodialysis | Fax: | [address] | | | | | status | [phone] | Phone: | | | | | (HCC) | | [phone] | | | | | Chronic | | Fax: | | | | | kidney | | [phone] | | | | | disease, | | | | | | | stage V | | | | | | | ([facility]) | | | | | [...] | | 2014 | Encounter | at [facility] | | | | | | [facility] | | | | | | [address] | | | | | | [place] | | | | | | [facility] | | | | | | [address]th [facility], | | | | | | [place] [address] | | | | | | [phone] | | | +--------+ + + + [...] Denise | | | | | | [place] [address], [place] | | | | | | [address] | | | | | | [phone] | | | | | | | [...] | e | 1:18 PM | MEDICARE [address] [facility] | procedure are in the | [...] 2:35 PM PST Echocardiography Laboratory | | [address] | | [place] [address] | | ; | | [id number] | | | | Transthoracic Echocardiogram Report | | | | | | NAME: DARA WELDON Study Date: 01/20/2015 1:18:29 PM | | Order #: [id number] ACC #: [id number] | | | | | | : [...] on 01/20/2015 at 2:35:17 PM | | Industrial Roofer: YARITZA KLINE RDEDNA | | | | | | cc: | | | | | | Modes utilized | | TTE 95467; Spectral Doppler 01035; Color flow Doppler 83998; | | | | | | | | Final | + + + + + + + | Performing | Address | City/State/Zipcode | Phone Number | | Organization | | | | + + + + + | [facility] | [address] | [place], [place] | | | CARDIOLOGY | [address] | [address] | | + + + + + [...]
--- OUTSIDE RECORDS SUMMARY | ~2019-07-14 | XMS | Encounter Summary ---
Demographics + + + | Address | [address] | | | [place] [address] | + + + | Home Phone [...] | | | | | [place] [address] | | + + + + + | Thania Mallory | ECON | [address] | | | | | [place] [address] | | + + + + + | Deidra Weldon | ECON | [address] | | | | | [place] | | | | | [address] | | + + + + + [...] Shun | | | | | [address] | [facility] | | | | | [place], [place] | [place] [address] | | | | | [address] | [phone] | | | | | | | [...] Pharmacy Preferences: [id number] [id number] [place] [address] Updated Outpatient Medications: Current Medication List Name [...] questions regarding this information contact pharmacy, pager #[phone] Thank you, Juan David Batres Pager [phone] signed by Juan David Batres [facility] at [...] Denise | | | | | | [place] | | | | | | [address] | | | | | | [phone] | | | | | | | | +--------+ + + + + documented as of this encounter Visit Diagnoses Not on filedocumented in this encounter"
--- OUTSIDE RECORDS SUMMARY | ~2019-07-14 | XMS | Encounter Summary ---
Demographics + + + | Address | [address] | | | [place] [address] [...] | Author | [facility] | | | and [place] | + + + | Organization | [facility] | | [...] Team Providers + +------+ + | Care Agent Ticketing Gate Name | Role | Phone | + +------+ + PCP | Unavailable | + +------+ + Encounter Details +--------+ + + + + | Date | Type | Department | Care Team | Description | +--------+ + + + + | 05/29/ | Hospital | [facility] | Conversion | End stage renal | | 2014 | Encounter | [facility]TRA OP | Transaction, | disease (HCC) | | | | [address] | Provider Unknown | | | | | [place], [place] | [phone] | | | | | [address] | | | | | | [phone] | Natashakirit Darryn, | | | | | | MD [address] | | | | | | [place], [place] | | | | | | [address] | | | | | | | [...] | Testing performed at [facility];[address] [place] [address];[place] [address] MRSA PCR | | | NEGATIVE Testing performed at | | | [facility];[address] [place] [address];[place] [address] | | + + + + +---------+ [...]
--- OUTSIDE RECORDS SUMMARY | ~2019-07-14 | XMS | Encounter Summary ---
Demographics + + + | Address | [address] | | | [place] [address] | + + + | Home Phone [...] | | | | | [place] [address] | | + + + + + | Thania Mallory | ECON | [address] | | | | | [place] [address] | | + + + + + | Deidra Weldon | ECON | [address] | | | | | [place] | | | | | [address] | | + + + + + [...] [address] | [facility] | | | | | [place], | [place], [place] | | | | | [place] [address] | [address] | | | | | [phone] | | | +--------+ + + + [...] Denise | | | | | | [place], [place] | | | | | | [address] | | | | | | [phone] | | | | | | | [...]
--- OUTSIDE RECORDS SUMMARY | ~2019-07-14 | XMS | Encounter Summary ---
Demographics + + + | Address | [address] | | | [place] [address] | + + + | Home Phone [...] | | | | | [place] [address] | | + + + + + | Thania Mallory | ECON | [address] | | | | | [place] [address] | | + + + + + | Deidra Weldon | ECON | [address] | | | | | [place] | | | | | [address] | | + + + + + Care Team Providers + +------+ + | Care Pig Farm Manager Name | Role | Phone | [...] | | [address] | [facility] | | | | | [facility], | [place], [place] | | | | | [place] [address] | [address] | | | | | [phone] | | | +--------+ + + + [...] Denise | | | | | | [place] | | | | | | [address] | | | | | | [phone] | | | | | | | | +--------+ + + + + documented as of this encounter Visit Diagnoses Not on filedocumented in this encounter"
--- OUTSIDE RECORDS SUMMARY | ~2019-07-14 | XMS | Encounter Summary ---
Demographics + + + | Address | [address] | | | [place] [address] | + + + | Home Phone [...] | [facility] | | | and [place] | + + + | Organization | [facility] | | [...] Team Providers + +------+ + | Care Developmental Education Instructor Name | Role | Phone [...] + + | 01/07/ | Hospital | [facility] | Florian Nelson, | Hyperkalemia | | 2019 - | Encounter | [facility] | [address] | (Primary Dx); ESRD | | | | CARE FLOOR [address] | [place] [address] | needing dialysis | | 01/10/ | | [address] | [phone] | ([facility]); Acute | | 2019 | | [place], [place] | | respiratory | | | | [address] | Herccristiana, Megan, DO | distress; Recurrent | | | | [phone] | [address] | right pleural | | | | | [place] [address] | effusion; Anemia in | | | | | [phone] | ESRD (end-stage | | | | | | renal disease) | | | | | Nicholas Sutton MD | ([facility]); At high risk | | | | | [address] | for electrolyte | | | | | [place] [address] | imbalance; Chronic | | | | | [phone] | 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 We are always happy to be a [...] the advice of your doctor or health medicare contact specialist. A special MedGuide will be given to you by the pharmacist with each prescription and refill . Be sure to read this information carefully each time. Talk to your dry cleaning machine operator helper regarding the use of this medicine in children. Special care may be needed. What side effects may I notice from receiving this medicine? Side effects that you should report to your doctor or health medicare contact specialist as soon as p ossible: allergic [...] attention (report to your doctor or health medicare contact specialist if they continue or are bothersome): [...] this medicine? Tell your doctor or health medicare contact specialist if your symptoms do not start [...] dying should be reported to your health medicare contact specialist right away. NOTE:This sheet is a [...] was completed later after rounds. Dictation software, [employer], was used which may contain error for [...] Nereida Cole RN - 01/09/2019 1:30 PM [id number]- Pt c/o chest pain rated 9/10, described [...] orders at this time, however EKG ordered. electroencephalographic technician called and en route. 1340- EKG [...] was completed later after rounds. Dictation software, [employer], was used which may contain error for [...] ashley DO - 01/09/2019 8:20 AM PST [facility] [...] Hyperkalemia: -Treated in the emergency room at [facility] that he had, potassium now wnl [...] of transfusion at this time -Epogen per hand sole sewer GI and DVT prophylaxis Paty Kline DO [...] was completed later after rounds. Dictation software, [employer], was used which may contain error for [...] ashley DO - 01/08/2019 7:50 AM PST [facility] [...] Hyperkalemia: -Treated in the emergency room at [facility] that he had, potassium now 5.8 [...] of transfusion at this time -Epogen per hand sole sewer Hypoglycemia: -Likely secondary to insulin given for her hyperkalemia and decrease PO intake -Hypoglycemic protocol GI and DVT prophylaxis Paty Kline DO 01/08/2019 Piedad Vega MD - 01/07/2019 7:14 AM PST [facility] Service: Hospitalist Progress Note Hospital Day: LOS: 0 days SUBJECTIVE Patient Summary: From [facility] Dr. Martínez 01/07/19 The patient is a 23 y.o. female with significant past medical history of HSP nephritis, rig ht pleural effusions recurrent, thoracentesis, bacteremia, clotted hemodialysis catheter, no ncompliance, asthma who presents transferred from [facility] with hyperkalemia, hyperte nsion noncompliant with [...] life. Patient was treated for hyperkalemia in [facility] as her potassium was 6.8. The data from [facility] was a chest x-ray which shows [...] for input(s): IRON, TIBC, PCTSAT, FERRITIN, TSH, DSLCGONT93, FOLATE in the last 168 hours. No [...] Hyperkalemia: -Treated in the emergency room at [facility] that he had, potassium now 5.8 [...] of transfusion at this time -Epogen per hand sole sewer Hypoglycemia: -Likely secondary to insulin given for [...] [place] | | | | | | [address] | | | | + + + + + + + + | Specimen | + + | | + + + + + + + | Performing | Address | City/State/Zipcode | Phone Number | | Organization | | | | + + + + + | [facility] | [address] | [place] [address] | [phone] | + + + + + POC Glucose (01/10/2019 7:47 AM PST) + + + + + + | Component | Value | Ref Range | Performed | Pathologist | | | | | At | Signature | + + + + + + | Glucose, | 125 (H)Comment: Testing | 65 - 99 mg/dL | [facility] | | | POC | performed at [place];[address] | | LABORATORY | | | | [address];[place] | | | | | | [address] | | | | + + + + + + + + | Specimen | + + | | + + + + + + + | Performing | Address | City/State/Zipcode | Phone Number | | Organization | | | | + + + + + | [facility] | [address] | [place] [address] | [phone] | + + + + + CBC [...] | LABORATORY | | | | [address];[place], [place] | | | | | | [address] | | | | + + + + + + + + | Specimen | + + | Blood | + + + + + + + | Performing | Address | City/State/Zipcode | Phone Number | | Organization | | | | + + + + + | [facility] | [address] | [place] [address] | [phone] | + + + + + Phosphorus (01/10/2019 7:03 AM PST) + + + + + + | Component | Value | Ref Range | Performed | Pathologist | | | | | At | Signature | + + + + + + | Phosphorus | 5.4 (H)Comment: Testing | 2.3 - 4.8 mg/dL | [facility] | | | | performed at [facility];[address] | | LABORATORY | | | | [address];[place], [place] | | | | | | [address] | | | | + + + + + + + + | Specimen | + + | Blood | + + + + + + + | Performing | Address | City/State/Zipcode | Phone Number | | Organization | | | | + + + + + | [facility] | [address] | [place] [address] | [phone] | + + + + + Magnesium (01/10/2019 7:03 AM PST) + + + + + + | Component | Value | Ref Range | Performed | Pathologist | | | | | At | Signature | + + + + + + | Magnesium | 2.0Comment: Testing | 1.7 - 2.4 mg/dL | [facility] | | | | performed at [place];[address] | | LABORATORY | | | | [address];[place], [place] | | | | | | [address] | | | | + + + + + + + + | Specimen | + + | Blood | + + + + + + + | Performing | Address | City/State/Zipcode | Phone Number | | Organization | | | | + + + + + | [facility] | [address] | [place] [address] | [phone] | + + + + + Basic [...] [place];[address] | | | | | | [facility];[place], [place] | | | | | | [address] | | | | + + + + + + + + | Specimen | + + | Blood | + + + + + + + | Performing | Address | City/State/Zipcode | Phone Number | | Organization | | | | + + + + + | [facility] | [address] | [place] [address] | [phone] | + + + + + POC [...] | LABORATORY | | | | [address];[place], [place] | | | | | | [address] | | | | + + + + + + + + | Specimen | + + | | + + + + + + + | Performing | Address | City/State/Zipcode | Phone Number | | Organization | | | | + + + + + | [facility] | [address] | [place] [address] | [phone] | + + + + + POC [...] [place] | | | | | | [address] | | | | + + + + + + + + | Specimen | + + | | + + + + + + + | Performing | Address | City/State/Zipcode | Phone Number | | Organization | | | | + + + + + | [facility] | [address] | [place] [address] | [phone] | + + + + + XR [...] | | PORTABLE (01/07/2019); CHEST TWO VIEWS 17439 (01/06/2019); XR CHEST AP | | | [...] PORTABLE (01/07/2019); | | CHEST TWO VIEWS 38911 (01/06/2019); XR CHEST AP PORTABLE (12/13/2018); | [...] | LABORATORY | | | | [address];[place] | | | | | | [address] | | | | + + + + + + + + | Specimen | + + | | + + + + + + + | Performing | Address | City/State/Zipcode | Phone Number | | Organization | | | | + + + + + | [facility] | [address] | [place] [address] | [phone] | + + + + + Comprehensive [...] | | | | | | MDRD [facility] traceable | | | | | | equation.Testing | | | | | | performed at [facility];[address] | | | | | | [facility];[place], [place] | | | | | | [address] | | | | + + + + + + + + | Specimen | + + | Blood | + + + + + + + | Performing | Address | City/State/Zipcode | Phone Number | | Organization | | | | + + + + + | [facility] | [address] | [place] [address] | [phone] | + + + + + CBC [...] [address] | | | | | [address];[place] [address] | | | | + + + + + + + + | Specimen | + + | Blood | + + + + + + + | Performing | Address | City/State/Zipcode | Phone Number | | Organization | | | | + + + + + | [facility] | [address] | [place] [address] | [phone] | + + + + + POC [...] | LABORATORY | | | | [address];[place], [place] | | | | | | [address] | | | | + + + + + + + + | Specimen | + + | | + + + + + + + | Performing | Address | City/State/Zipcode | Phone Number | | Organization | | | | + + + + + | [facility] | [address] | [place] [address] | [phone] | + + + + + POC [...] [place] | | | | | | [address] | | | | + + + + + + + + | Specimen | + + | | + + + + + + + | Performing | Address | City/State/Zipcode | Phone Number | | Organization | | | | + + + + + | [facility] | [address] | [place] [address] | [phone] | + + + + + POC Glucose (01/08/2019 8:56 PM PST) + + + + + + | Component | Value | Ref Range | Performed | Pathologist | | | | | At | Signature | + + + + + + | Glucose, | 134 (H)Comment: Testing | 65 - 99 mg/dL | [facility] | | | POC | performed at [facility];[address] | | LABORATORY | | | | [address];[place] | | | | | | [address] | | | | + + + + + + + + | Specimen | + + | | + + + + + + + | Performing | Address | City/State/Zipcode | Phone Number | | Organization | | | | + + + + + | [facility] | [address] | [place] [address] | [phone] | + + + + + POC [...] LABORATORY | | | | [address];[place], [place] | | | | | | [address] | | | | + + + + + + + + | Specimen | + + | | + + + + + + + | Performing | Address | City/State/Zipcode | Phone Number | | Organization | | | | + + + + + | [facility] | [address] | [place] [address] | [phone] | + + + + + POC Glucose (01/08/2019 12:23 PM PST) + + + + + + | Component | Value | Ref Range | Performed | Pathologist | | | | | At | Signature | + + + + + + | Glucose, | 76Comment: Testing | 65 - 99 mg/dL | [facility] | | | POC | performed at [facility];[address] | | LABORATORY | | | | [address];[place], [place] | | | | | | [address] | | | | + + + + + + + + | Specimen | + + | | + + + + + + + | Performing | Address | City/State/Zipcode | Phone Number | | Organization | | | | + + + + + | [facility] | [address] | [place] [address] | [phone] | + + + + + POC Glucose (01/08/2019 7:35 AM PST) + + + + + + | Component | Value | Ref Range | Performed | Pathologist | | | | | At | Signature | + + + + + + | Glucose, | 74Comment: Testing | 65 - 99 mg/dL | [facility] | | | POC | performed at [facility];[address] | | LABORATORY | | | | [address];[place] | | | | | | [address] | | | | + + + + + + + + | Specimen | + + | | + + + + + + + | Performing | Address | City/State/Zipcode | Phone Number | | Organization | | | | + + + + + | [facility] | [address] | [place] [address] | [phone] | + + + + + Comprehensive [...] | | | | | [place] [address] | | | | + + + + + + + + | Specimen | + + | Blood | + + + + + + + | Performing | Address | City/State/Zipcode | Phone Number | | Organization | | | | + + + + + | [facility] | [address] | [place] [address] | [phone] | + + + + + CBC [...] [facility] | | | | performed at [facility], [address] | | LABORATORY | | | | [address], | | | | | | [place] [address] | | | | + + + + + + + + | Specimen | + + | Blood | + + + + + + + | Performing | Address | City/State/Zipcode | Phone Number | | Organization | | | | + + + + + | [facility] | [address] | [place] [address] | [phone] | + + + + + POC [...] [place] | | | | | | [address] | | | | + + + + + + + + | Specimen | + + | | + + + + + + + | Performing | Address | City/State/Zipcode | Phone Number | | Organization | | | | + + + + + | [facility] | [address] | [place] [address] | [phone] | + + + + + POC Glucose (01/07/2019 5:34 PM PST) + + + + + + | Component | Value | Ref Range | Performed | Pathologist | | | | | At | Signature | + + + + + + | Glucose, | 109 (H)Comment: Testing | 65 - 99 mg/dL | [facility] | | | POC | performed at [facility];[address] | | LABORATORY | | | | [address];[place] | | | | | | [address] | | | | + + + + + + + + | Specimen | + + | | + + + + + + + | Performing | Address | City/State/Zipcode | Phone Number | | Organization | | | | + + + + + | [facility] | [address] | [place] [address] | [phone] | + + + + + CT [...] adenopathy. Upper Abdomen: The | | | kar[place] kidneys are atrophic. There is a small [...] No adenopathy. | | Upper Abdomen: The [place] kidneys are atrophic. There is a small [...] Testing | 65 - 99 mg/dL | [facility] | | | POC | performed at [facility];[address] | | LABORATORY | | | | [address];[place] | | | | | | [address] | | | | + + + + + + + + | Specimen | + + | | + + + + + + + | Performing | Address | City/State/Zipcode | Phone Number | | Organization | | | | + + + + + | [facility] | [address] | [place] [address] | [phone] | + + + + + Hepatitis [...] | LABORATORY | | | | [facility], [address] | | | | | | [place], [place] | | | | | | [address] | | | | + + + + + + + + | Specimen | + + | Blood | + + + + + + + | Performing | Address | City/State/Zipcode | Phone Number | | Organization | | | | + + + + + | [facility] | [address] | [place] [address] | [phone] | + + + + + POC Glucose (01/07/2019 7:14 AM PST) + + + + + + | Component | Value | Ref Range | Performed | Pathologist | | | | | At | Signature | + + + + + + | Glucose, | 83Comment: Testing | 65 - 99 mg/dL | [facility] | | | POC | performed at [facility];[address] | | LABORATORY | | | | [address];[place], [place] | | | | | | [address] | | | | + + + + + + + + | Specimen | + + | | + + + + + + + | Performing | Address | City/State/Zipcode | Phone Number | | Organization | | | | + + + + + | [facility] | [address] | [place] [address] | [phone] | + + + + + XR [...] (500), | | | | | | mapping editor JOSH CHAPPELL | | | | | | (0363) on 01/07/2019 | | | | | [...] | LABORATORY | | | | [address];[place], [place] | | | | | | [address] | | | | + + + + + + + + | Specimen | + + | | + + + + + + + | Performing | Address | City/State/Zipcode | Phone Number | | Organization | | | | + + + + + | [facility] | [address] | [place] [address] | [phone] | + + + + + POC [...] [place] | | | | | | [address] | | | | + + + + + + + + | Specimen | + + | | + + + + + + + | Performing | Address | City/State/Zipcode | Phone Number | | Organization | | | | + + + + + | [facility] | [address] | [place] [address] | [phone] | + + + + + Troponin I (01/07/2019 1:40 AM PST) + + + + + + | Component | Value | Ref Range | Performed | Pathologist | | | | | At | Signature | + + + + + + | Troponin I | 0.149 (H)Comment: 0.04 | 0.00 - 0.04 | [facility] | | | | ng/mL or [...] | | | | | | [place];[address] | | | | | | [address]vd;[place] [address] | | | | + + + + + + + + | Specimen | + + | Blood | + + + + + + + | Performing | Address | City/State/Zipcode | Phone Number | | Organization | | | | + + + + + | [facility] | [address] | [place] [address] | [phone] | + + + + + Comprehensive [...] 3 (L)Comment: GFR <60: | >60 | [facility] | | | GFR | CHRONIC [...] | | | | | | MDRD [facility] traceable | | | | | | equation.Testing | | | | | | performed at [facility];[address] | | | | | | [facility];[place], [place] | | | | | | [address] | | | | + + + + + + + + | Specimen | + + | Blood | + + + + + + + | Performing | Address | City/State/Zipcode | Phone Number | | Organization | | | | + + + + + | [facility] | [address] | [place] [address] | [phone] | + + + + + CBC [...] | | | | | at [facility];[address] | | | [address];[place] [address] | | | | | |NORMAL PLT MORPH | | | | | |Testing performed at [facility];[address] [place] [address];[place] [address] | | | | | | | | | | + + + + + + + + | Specimen | + + | Blood | + + + + + + + | Performing | Address | City/State/Zipcode | Phone Number | | Organization | | | | + + + + + | [facility] | [address] | [place] [address] | [phone] | + + + + + Thoracentesis [...] space: 6th Puncture method: | | | [id number]-[id number] catheter Needle size: 18 Catheter size: 18 [...]
--- OUTSIDE RECORDS SUMMARY | ~2019-07-14 | XMS | Encounter Summary ---
[...] | Author | [facility] | | | and [place] | + + + | Organization | [facility] | [...] Providers + +------+ + | Care Health Screener Name | Role | Phone | + [...] | NEPHROLOGY [address] | | | | | [address] | [address] [place] | | | | | [place], [place] | [place] [address] | | | | | [address] | [phone] | | | | | [phone] | | | +--------+--------+ + + + [...]
--- OUTSIDE RECORDS SUMMARY | ~2019-07-14 | XMS | Encounter Summary ---
Demographics + + + | Address | [address] | | | [place] [address] | + + + | Home Phone [...] | | | | | [place] [address] | | + + + + + | Thania Mallory | ECON | [address] | | | | | [place] [address] | | + + + + + | Deidra Weldon | ECON | [address] | | | | | [place] | | | | | [address] | | + + + + + Care Team Providers + +------+ + | Care Label Press Operator Name | Role | Phone [...] | | | | [address] | [facility] | | | | | [place], | [place], [place] | | | | | [place] [address] | [address] | | | | | [phone] | | | +--------+ + + + [...] Denise | | | | | | [place] | | | | | | [address] | | | | | | [phone] | | | | | | | | +--------+ + + + + documented as of this encounter Visit Diagnoses Not on filedocumented in this encounter"
--- OUTSIDE RECORDS SUMMARY | ~2019-07-14 | XMS | Encounter Summary ---
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
--- OUTSIDE RECORDS SUMMARY | ~2019-07-14 | XMS | Encounter Summary ---
Demographics + + + | Address | [address] | | | [place] [address] | + + + | Home Phone [...] | | | | | [place] [address] | | + + + + + | Thania Mallory | ECON | [address] | | | | | [place] [address] | | + + + + + | Deidra Weldon | ECON | [address] | | | | | [place] | | | | | [address] | | + + + + + Care Team Providers + +------+ + | Care Railroad Firer/Fireman Name | Role | Phone | + [...] Nephrology | | Jonathan Gallagher, | Tx [facility] [address] | | | | | | [address] | [address] | | | | | | Keven | [place] | | | | | | [facility] | Children's | | | | | | [address] | [address] | | | | | | [address] | floor | | | | | | [place], | [place], [place] | | | | | | [place] | [address] | | | | | | [address] | Phone: | | | | | | Phone: | [phone] | | | | | | [phone] | | | | | | | Fax: | | | | | | | [phone] | | +--------+--------+ + + + + Encounter Details +--------+---------+ + + + | Date | Type | Department | Care Team | Description | +--------+---------+ + + + | 05/11/ | Office | Specialty Clinics | Sudhakar Joy | [facility] | | 2016 | Visit | at [facility] [address] | DMD [address] | (David | | | | [address] | [address] | purpura) nephritis | | | | [place] | [place], [place] | (Primary Dx); Anemia | | | | [facility], | [address] | of chronic kidney | | | | 7th floor | [phone] | failure, stage 5 | | | | [place], [place] | | ([facility]) | | | | [address] | | | | | | [phone] | | | +--------+---------+ + + + [...] [facility] [address] Mail code [facility], [place] [address] Estrella Brennan MA - 05/12/2015 10:48 AM [...] | | | | | | [place], [place] | | | | | | [address] | | | | | | [phone] | | | | | | | [...]
--- OUTSIDE RECORDS SUMMARY | ~2019-07-14 | XMS | Encounter Summary ---
Demographics + + + | Address | [address] | | | [place] [address] | + + + | Home Phone [...] | [facility] | | | and [place] | + + + | Organization | [facility] [...] Team Providers + +------+ + | Care Reagent Tender Helper Name | Role | Phone [...] + + | 12/19/ | Telephone | [facility] | George Torres RN | Congestive Heart | | 2019 | | [address] | | Failure (Reviewed | | | | [place], [place] | | for CHF Quality | | | | [address] | | Measures) | | | | [phone] | | | +--------+ + + + [...]
--- OUTSIDE RECORDS SUMMARY | ~2019-07-14 | XMS | Encounter Summary ---
Demographics + + + | Address | [address] | | | [place] [address] | + + + | Home Phone [...] | Author | [facility] | | | and Josephana | + + + | Organization | [facility] | [...] Providers + +------+ + | Care Billing And Insurance Coordinator Name | Role | Phone | + +------+ + | Tien Nicholson MD | PCP | | + +------+ + Encounter Details +--------+ + + + + | Date | Type | Department | Care Team | Description | +--------+ + + + + | 10/17/ | Hospital | [facility] | Nikita, | SOB (shortness of | | 2019 - | Encounter | [facility] | MD [address] | breath); Pleural | | | | CARE FLOOR [address] | effusion on right; | | 10/20/ | | [address] | [place] [address] | ESRD needing | | 2019 | | [place], [place] | [phone] | dialysis ([facility]); End | | | | [address] | | stage renal disease | | | | [phone] | | (HCC) | +--------+ + + [...] + + +---------+ + + | B Gqjebxg-J-Wohmw | Take 1 tablet by | | [...] 10/19/182357 Date of Service: 10/19/182357 Status: Signed Building Custodial Supervisor: Vira Liliana, RN (Registered Nurse) No acute [...] 10/19/181827 Date of Service: 10/19/181826 Status: Signed Building Custodial Supervisor: Trent Jovel RN (Registered Nurse) Dialysis completed today 2.4L removed. Remains on fluid restriction. Medicated for pain x 2. End of shift review complete. Trent Jovel RN onver arturo Transaction, Provider Unknown - 10/19/2018 3:36 PM PDT Case Management by DORON Diallo at 10/19/18 1536 Author: DORON Diallo Service: (none) Author Type: Valve Technician Filed: 10/19/18 1537 Date of Service: 10/19/181535 Status: Signed Building Custodial Supervisor: DORON Diallo (Valve Technician) Discharge planning: Return home when medically ready [...] Service: Nephrology Author Type: Physician Filed: 10/25/18 2515 Date of Service: 10/19/18 1214 Status: Addendum Building Custodial Supervisor: Antonio Pabon MD (Physician) Related Notes: Original Note by Antonio Pabon MD (Physician) filed at 10/25/18 9048 [facility]: NEPHROLOGY Progress Note Dara Weldon 23 y.o. [id number] female TIEN NICHOLSON 23-year-old female with [...] FISTULA; Surgeon: Rik Simon MD; Location: [facility] OR; Service: Vascula r; Laterality: Left; cephalic AV FISTULA REPAIR Left 03/07/2014 Procedure: AV FISTULA - GRAFT REPAIR/REVISION; Surgeon: Rik Simon MD; Location: [facility] IN OR; Service: Vascular; Laterality: Left; DECLOT GRAFT Left 03/07/2014 Procedure: GRAFT - DECLOT; Surgeon: Rik Simon MD; Location: [facility]; Service: Vas cular; Laterality: Left; DIALYSIS FISTULA CREATION N/A 04/08/2014 Procedure: DIALYSIS CATHETER - INSERTION; Surgeon: Rik Simon MD; Location: [facility] OR ; Service: Vascular; Laterality: N/A; tunneled catheter LAPAROSCOPIC PERITONEAL DIALYSIS CATHETER INSERTION x2 LAPAROSCOPIC PERITONEAL DIALYSIS CATHETER INSERTION Right 07/2013 current dialysis access MWF dialysis RENAL BIOPSY Left 2003 SUPERFICIALIZATION OF AV FISTULA Left 06/24/2014 Procedure: AV FISTULA - SUPERFICIALIZATION; Surgeon: Rik Simon MD; Location: [facility] OR; Service: Vascular; Laterality: Left; [...] History Narrative She lives in [facility]. She does not work. She has 1 [...] is punctured with an 5 [place] AVOB centesis catheter. Fluid is aspirated without complication. [...] 1 VIEW (10/17/2018); CHEST TWO V IEWS 98559 (10/17/2018); FINDINGS: Compared to the prior examination [...] MR, severe TR.severe pulmonary hypertens ion Chest l-sen-wejsfrmbsdhc with pulmonary edema and large right pleural [...] earlier and charting completed later Dictation software, Pingboard, used which may contain error for similar sounding words even af ter review. Personal communication requested for any clarification. Gerber Fernandez MD - 10/19/2018 7:48 AM PDT Progress Notes by Gerber Pearson MD at 10/19/18 0748 Author: Gerber Pearson MD Service: Hospitalist Author Type: Physician Filed: 10/19/18 0753 Date of Service: 10/19/1848 Status: Signed Building Custodial Supervisor: Gerber Pearson MD (Physician) [facility]: Hospitalist Progress Note Hospital Day: [...] dyspnea Patient was recently discharged from [facility] on 08/23/2018. For full note, please see ketan agudelo summary from hospitalist. In summary, the patient was admitted for noncardiogenic pulmo nary edema after thoracentesis. At that point, prior to admission, she was seen at the [facility] at [facility] in [place] on 08/21 where she underwent right th [...] BUN 90 on admission -History of a Skandia Schnlein purpura -Last hemodialysis approximately 2 weeks [...] 10/19/18733 Date of Service: 10/19/18733 Status: Signed Building Custodial Supervisor: Vira Ford RN (Registered Nurse) No acute changes from shift assessment. VSS. Pt medicated for pain as requested and availab le. End of shift review and 24 hour chart check complete. onver arturo Transaction, Provider Unknown - 10/18/2018 5:01 PM PDT Case Management by DORON Diallo at 10/18/181700 Author: DORON Diallo Service: (none) Author Type: Valve Technician Filed: 10/18/181706 Date of Service: 10/18/181700 Status: Signed Building Custodial Supervisor: DORON Diallo (Valve Technician) Discharge planning: Return home when medically ready for discharge. Gerber Fernandez MD - 10/18/2018 7:46 AM PDT Progress Notes by Gerber Pearson MD at 10/18/18745 Author: Gerber Pearson MD Service: Hospitalist Author Type: Physician Filed: 10/18/18 075 Date of Service: 10/18/18745 Status: Signed Building Custodial Supervisor: Gerber Pearson MD (Physician) [facility]: Hospitalist Progress Note Hospital Day: [...] dyspnea Patient was recently discharged from [facility] on 08/23/2018. For full note, please see discha marline summary from hospitalist. In summary, the patient was admitted for noncardiogenic pulmo nary edema after thoracentesis. At that point, prior to admission, she was seen at the [facility] at [facility] in [place] on 08/21 where she underwent right th [...] BUN 90 on admission -History of a Sk[place]ia Schnlein purpura -Last hemodialysis approximately 2 weeks [...] 10/25/182002 Date of Service: 10/18/18744 Status: Signed Building Custodial Supervisor: Anotnio Pabon MD (Physician) [facility]: NEPHROLOGY Progress Note Dara Weldon 23 y.o. [id number] 4465/[id number] female [facility] Day: LOS: 1 day 23-year-old [...] FISTULA; Surgeon: Rik Simon MD; Location: [facility]; Service: Vascula r; Laterality: Left; cephalic AV FISTULA REPAIR Left 03/07/2014 Procedure: AV FISTULA - GRAFT REPAIR/REVISION; Surgeon: Rik Simon MD; Location: [facility] IN OR; Service: Vascular; Laterality: Left; DECLOT GRAFT Left 03/07/2014 Procedure: GRAFT - DECLOT; Surgeon: Rik Simon MD; Location: [facility]; Service: Vas cular; Laterality: Left; DIALYSIS FISTULA CREATION N/A 04/08/2014 Procedure: DIALYSIS CATHETER - INSERTION; Surgeon: Rik Simon MD; Location: [facility] ; Service: Vascular; Laterality: N/A; tunneled catheter LAPAROSCOPIC PERITONEAL DIALYSIS CATHETER INSERTION x2 LAPAROSCOPIC PERITONEAL DIALYSIS CATHETER INSERTION Right 07/2013 current dialysis access MWF dialysis RENAL BIOPSY Left 2003 SUPERFICIALIZATION OF AV FISTULA Left 06/24/2014 Procedure: AV FISTULA - SUPERFICIALIZATION; Surgeon: Rik Simon MD; Location: [facility]; Service: Vascular; Laterality: Left; [...] History Narrative She lives in [facility]. She does not work. She has 1 [...] QTC Calculation (Bezet) 469 ms Calculated P [place] 46 degrees Calculated R [place] 127 degrees Calculated T [place] 94 degrees Diagnosis Normal sinus rhythm Right [...] MR, severe TR.severe pulmonary hypertens ion Chest f-fvt-bnpspcmggshk with pulmonary edema and large right pleural [...] earlier and charting completed later Dictation software, Pingboard, used which may contain error for similar [...] 10/18/1853 Date of Service: 10/18/18650 Status: Signed Building Custodial Supervisor: Ronnie Vargas RN (Registered Nurse) Pt alert and oriented X 4. PRN pain med given for back pain. No other acute changes durin g shift. Chart check complete onver arturo Transaction, Provider Unknown - 10/17/2018 9:48 AM PDT Case Management by DORON Diallo at 10/17/18 0948 Author: DORON Diallo Service: (none) Author Type: Valve Technician Filed: 10/17/1854 Date of Service: 10/17/18947 Status: Signed Building Custodial Supervisor: DORON Diallo (Valve Technician) 10/17/18 09 Discharge Planning Evaluation Admitting Diagnosis (SOB) Readmission Other (comment) (Last admit 08/20/18) Living Arrangements Alone Support Systems Family members;Friends/neighbors Type of Residence Private residence House type Apartment Independent with ADL's Yes Independent with Mobility Yes Home Care Services No Caregiver after Discharge No Mental Status Oriented Prior functional status (Independent) Power of Windows Admin No Resources Financial concerns No Transportation issues No Patient/Family concerns No Prescription Plan Yes Name of Pharmacy ([facility] in [place]) Previous home health equipment No Anticipated Disposition Facility Type Home DORON CM met with pt and discussed discharge planning. Pt is a 23 y.o., female admitted for s hortness of breath. Pt resides alone in an apartment at [address], [facility] [facility] [address], [place] [address]. Pt reported that she has neighbor and [...] 10/17/18743 Date of Service: 10/17/18743 Status: Signed Building Custodial Supervisor: Camilla Moody RPH (Pharmacist) Clinical Pharmacy Note: [...] 10/17/1847 Date of Service: 10/17/18716 Status: Signed Building Custodial Supervisor: Gerber Pearson MD (Physician) [facility]: Hospitalist Progress Note Hospital Day: [...] dyspnea Patient was recently discharged from [facility] on 08/23/2018. For full note, please see discha rge summary from hospitalist. In summary, the patient was admitted for noncardiogenic pulmo nary edema after thoracentesis. At that point, prior to admission, she was seen at the [facility] at [facility] in [place] on 08/21 where she underwent right th [...] the case over the phone with patient's slurry control tender Dr. Mahmood, recommends medi oly management and [...] creatinine 14, BUN 90 -History of a Sk[place]ia Schnlein purpura -Last hemodialysis approximately 2 weeks [...] | | | | | | [place] [address] | | | | + + + [...] CHEST 1 VIEW (10/17/2018); CHEST TWO VIEWS 83022 | | | (10/17/2018); FINDINGS: Compared to [...] VIEW | | (10/17/2018); CHEST TWO VIEWS 72958 (10/17/2018); | | FINDINGS: | | Compared [...] punctured with an 5 [place] Yueh centesis catheter. | | | Fluid [...] [address]vd, | | | | | | [place] [address] | | | | | |Testing performed at [facility], [address] [place] [address] | | | | | | | [...] [facility], [address] | | LAB | | | | [address], | | | | | | [place] [address] | | | | + + + [...] | | | | | | [place] [address] | | | | + + + [...] | [facility];[address] | | | | | | [address];[place] [address] | | | | + + + [...] | LAB | | | | [address];[place], [place] | | | | | | [address] | | | | + + + [...] | | [facility];[address] | | | | | | Blvd;[place] [address] | | | | + + [...] | LAB | | | | [address];[place], [place] | | | | | | [address] | | | | + + + [...] performed at [facility] | | | | | | [address];[place], [place] | | | | | | [address] | | | | + + + [...] | [facility];[address] | [address];[place] [address] | | | | + + + [...] | | [facility];[address] [facility] | | | | | | [facility];[place] [address] | | | | + + + [...] | | LAB | | | | [facility];[address];[place] [address] | | | | + + + [...]
--- OUTSIDE RECORDS SUMMARY | ~2019-07-14 | XMS | Encounter Summary ---
Demographics + + + | Address | [address] | | | [place] [address] | + + + | Home Phone [...] Author | [facility] | | | and Josephana | + + + | Organization | [facility] | [...] Team Providers + +------+ + | Care Cafe Operator Name | Role | Phone | + +------+ + | Tien Nicholson MD | PCP | | + +------+ + Encounter Details +--------+ + + + + | Date | Type | Department | Care Team | Description | +--------+ + + + + | 05/26/ | Hospital | [facility] | Mayco Rizvi MD | Chest pain, | | 2019 - | Encounter | [facility] | [address] [place] | unspecified type; | | | | CARE FLOOR [address] | [address] [place], [place] | Hypoalbuminemia; | | 06/01/ | | [address] | [address] | Anemia in ESRD | | 2019 | | [place], [place] | | (end-stage renal | | | | [address] | | disease) ([facility]LY [facility]); | | | | [phone] | | End-stage renal | | | | | | disease on | | | | | | hemodialysis ([facility]ERLY [facility]); | | | [...] | | | | | failure) ([facility]) | +--------+ + + + + Social [...] Date of Service: 06/01/18 0959 Status: Addendum Graphite Grinder: Darell Kowalski MD (Physician) Related Notes: Original Note by Darell Kowalski MD (Physician) filed at 06/04/18 9644 [facility] Service: Hospitalist Physician Discharge Summary Pt: Dara Louise AGE/SEX: 23 y.o. female ROOM: [address] [place] [address] PCP: TIEN NICHOLSON : 1995 Admit date: [...] 17. The mitral valve is normal. 18. Pqwu-dr-ovhus ate eccentric mitral regurgitation is present. 19. [...] anemia of chronic disease who went to [facility] with increasing shortness of breath found [...] hyperkalemia with that. I discussed with the rail car repairman as well regarding not being on [place]/ARB. [...] Component Value Units Date/Time Culture, Body Fluid [[id number]] Collected: 05/26/18 1412 Specimen: Body Fluid from Pleural Fluid Updated: 05/30/18 0733 Specimen Description PLEURAL FLUID GRAM STAIN WBC'S SEEN GRAM STAIN NO ORGANISMS SEEN GRAM STAIN STAIN PERFORMED ON CYTOSPIN CULTURE NO GROWTH 4 DAYS Culture, Body Fluid [[id number]] Collected: 05/26/18 1513 Specimen: Other from Ascites Fluid Updated: 05/30/18 0732 Specimen Description ASCITES FLUID GRAM STAIN STAIN PERFORMED ON CYTOSPIN GRAM STAIN WBC'S SEEN GRAM STAIN NO EPITHELIAL CELLS SEEN GRAM STAIN NO ORGANISMS SEEN CULTURE NO GROWTH 4 DAYS Gram stain [[id number]] Collected: 05/29/18 1256 Specimen: Sputum from Thoracic Fluid Updated: 05/29/18 2339 Specimen Description THORACIC FLUID CULTURE 1+ WBC'S SEEN NO ORGANISMS SEEN Lactate dehydrogenase, body fluid [[id number]] Collected: 05/29/18 1256 Specimen: Body Fluid from Pleural, Right Updated: 05/29/18 1619 FLUID LDH 151 U/L Cholesterol, body fluid [[id number]] Collected: 05/29/18 1256 Specimen: Body Fluid from [...] medications if needed. Follow-Up: Tien Nicholson MD [address], [address] [place] [address] In 1 week Carolina Mahmood DO [address] [place] [facility] [id number] In 1 week Daniela Ibarra MD [address] [facility] [id number] In 1 week Discharge took more than 35 minutes, to include final examination, discussion of admission, and preparation of prescriptions, instructions for ongoing care, follow up and dictation of summary. Signed: DARELL KOWALSKI MD 06/01/2018 9:59 AM Dictation software, 51fanli, used which may contain error for similar [...] | | | renal disease) ([facility]) | protocol | | | | [...] Date of Service: 06/01/18 150 Status: Signed Graphite Grinder: Tino Paiz CRT (Certified Respiratory Therapist) [facility] Department of Respiratory Prison Oxygen Evaluation (Evaluation is valid for 48 [...] (none) Author Type: Registered Nurse Filed: 06/01/18 3255 Date of Service: 06/01/18 1500 Status: Signed Graphite Grinder: Autumn Moy RN (Registered Nurse) Pt was [...] Date of Service: 06/01/18 1248 Status: Signed Graphite Grinder: Leanna Ariza RN (Registered Nurse) Pt will d/c home today --already established on HD/[place] MWF --will have O2 eval today No other needs Angela Antonio Carrasco MD - 06/01/2018 10:52 AM PDTFormatting of this note might be different from the orig inal. Progress Notes by Antonio Pabon MD at 06/01/18 1052 Author: Antonio Pabon MD Service: Nephrology Author Type: Physician Filed: 06/05/18 1253 Date of Service: 06/01/18 1052 Status: Signed Graphite Grinder: Antonio Pabon MD (Physician) [facility] Service: NEPHROLOGY Dialysis/ Progress Note Dara Lundberg Shiraz 23 y.o. [id number] female [facility] Day: LOS: 6 days Patient [...] Rik Simon MD; Location: [facility] MAIN OR; Service: Vascula r; Laterality: Left; cephalic AV FISTULA REPAIR Left 03/07/2014 Procedure: AV FISTULA - GRAFT REPAIR/REVISION; Surgeon: Rik Simon MD; Location: [facility] IN OR; Service: Vascular; Laterality: Left; DECLOT GRAFT Left 03/07/2014 Procedure: GRAFT - DECLOT; Surgeon: Rik Simon MD; Location: [facility] MAIN OR; Service: Vas cular; Laterality: Left; DIALYSIS FISTULA CREATION N/A 04/08/2014 Procedure: DIALYSIS CATHETER - INSERTION; Surgeon: Rik Simon MD; Location: [facility] MAIN OR ; Service: Vascular; Laterality: N/A; tunneled catheter LAPAROSCOPIC PERITONEAL DIALYSIS CATHETER INSERTION x2 LAPAROSCOPIC PERITONEAL DIALYSIS CATHETER INSERTION Right 07/2013 current dialysis access MWF dialysis RENAL BIOPSY SUPERFICIALIZATION OF AV FISTULA Left 06/24/2014 Procedure: AV FISTULA - SUPERFICIALIZATION; Surgeon: Rik Simon MD; Location: [facility] MAIN OR; Service: Vascular; Laterality: [...] radiologist report and is used for image [employer] only Us Abdomen Limited Result Date: 05/28/2018 [...] 4. Overall left ventricular systolic function is bbeo rely impaired with, an EF between 20 [...] 17. The mitral valve is normal. 18. Chnf-ar-vfcuhfrp eccentric mitral regurgitation i s present. 19. [...] mitral valve is normal. Mitral Kait ve: Dfnj-bt-rtzvcylf eccentric mitral regurgitation is present. Tricuspid Valve: [...] maxP.08 mmHg TR Vmax: 2.7 4 m/s Psychiatric Social Worker Supervisor: MOO Authenticated by: Robel Yusuf MD Report [...] 17. The mitral valve is normal. 18. Fkcu-lw-deqjo ate eccentric mitral regurgitation is present. 19. [...] pleural spac e is punctured with an 8-Central African thoracentesis catheter. Fluid is aspirated without complicat [...] earlier and charting completed later Dictation software, 51fanli, used which may contain error for similar [...] 0632 Date of Service: 06/01/1835 Status: Signed Graphite Grinder: Aury Eldridge RN (Registered Nurse) Pts VSS. [...] 05/31/181840 Date of Service: 05/31/181840 Status: Signed Graphite Grinder: Romelia Cooley RN (Registered Nurse) End of shift chart review complete. Romelia Cooley RN koum, René Mckeon MD - 05/31/2018 11:32 AM PDTFormatting of this note might be different from the candice ginal. Progress Notes by René Anguiano MD at 05/31/18 113 Author: René Anguiano MD Service: Nephrology Author Type: Physician Filed: 05/31/18 1654 Date of Service: 05/31/18 113 Status: Addendum Graphite Grinder: René Anguiano MD (Physician) Related Notes: Original [...] put on "an antibiotic" for pneumonia at [facility] ED. Was throwing up & could [...] the prelim submitted orders, MWF No acute OUTPATIENT ADMITTING CLERK indication ESTEFANY as indicated with HD [...] 0951 Date of Service: 05/31/18941 Status: Signed Graphite Grinder: Darell Kowalski MD (Physician) [facility] Service: Hospitalist Progress Note Pt: Dara Louise AGE/SEX: 23 y.o. female ROOM: [address] [place] [address] : 1995 PCP: TIEN NICHOLSON ADMIT DATE: 05/26/2018 TODAY'S DATE: 05/31/2018 Hospital Day/Hospital Course: LOS: [address] Belcher 23-year-old female with past medical history of end-stage renal disease on hemodialysis Mon, hypertension, anemia of chronic disease who went to [facility] with increasing shortness of breath found [...] Component Value Units Date/Time Culture, Body Fluid [[id number]] Collected: 05/26/18 1412 Specimen: Body Fluid from Pleural Fluid Updated: 05/30/18 0733 Specimen Description PLEURAL FLUID GRAM STAIN WBC'S SEEN GRAM STAIN NO ORGANISMS SEEN GRAM STAIN STAIN PERFORMED ON CYTOSPIN CULTURE NO GROWTH 4 DAYS Culture, Body Fluid [[id number]] Collected: 05/26/18 1513 Specimen: Other from Ascites Fluid Updated: 05/30/18 0732 Specimen Description ASCITES FLUID GRAM STAIN STAIN PERFORMED ON CYTOSPIN GRAM STAIN WBC'S SEEN GRAM STAIN NO EPITHELIAL CELLS SEEN GRAM STAIN NO ORGANISMS SEEN CULTURE NO GROWTH 4 DAYS Gram stain [[id number]] Collected: 05/29/18 1256 Specimen: Sputum from Thoracic Fluid Updated: 05/29/18 2339 Specimen Description THORACIC FLUID CULTURE 1+ WBC'S SEEN NO ORGANISMS SEEN Lactate dehydrogenase, body fluid [[id number]] Collected: 05/29/18 1256 Specimen: Body Fluid from Pleural, Right Updated: 05/29/18 1619 FLUID LDH 151 U/L Cholesterol, body fluid [[id number]] Collected: 05/29/18 1256 Specimen: Body Fluid from Pleural, Right Updated: 05/29/18 1619 FLUID CHOLESTEROL 56 mg/dL Sputum culture [[id number]] Collected: 05/27/182014 Specimen: Sputum from Sputum Updated: [...] 17. The mitral valve is normal. 18. Jodt-eo-lilnf ate eccentric mitral regurgitation is present. 19. [...] anemia of chronic disease who went to [facility] with increasing shortness of breath due to acute congestive heart failure Acute systolic congestive heart failure with Pleural Effusion: Admitted with acute systolic congestive heart failure with bilateral pleural effusion stat us post thoracentesis 2. Her breathing has improved. She is talking to me appropriately. N ot in any kind of distress. foreign exchange services manager to initiate the discharge plan. [...] MD, FACP 05/31/2018 9:42 AM Dictation software, 51fanli, used which may contain error for similar [...] 05/31/18253 Date of Service: 05/31/18253 Status: Signed Graphite Grinder: Nandini Robertson RN (Registered Nurse) Chart review completed. onver arturo Transaction, Provider Unknown - 05/30/2018 6:37 PM PDT Nurse Progress Note by Kyra Amador RN at 05/30/181836 Author: Kyra Amador RN Service: (none) Author Type: Registered Nurse Filed: 05/30/181842 Date of Service: 05/30/181836 Status: Signed Graphite Grinder: Kyra Amador RN (Registered Nurse) VSS. Pt [...] Date of Service: 05/30/18 0909 Status: Signed Graphite Grinder: Darell Kowalski MD (Physician) [facility] Service: Hospitalist Progress Note Pt: Dara Toño Louise AGE/SEX: 23 y.o. female ROOM: [facility]- : 1995 PCP: TIEN NICHOLSON ADMIT DATE: 05/26/2018 TODAY'S DATE: 05/30/2018 Hospital Day/Hospital Course: LOS: [address] Belcher 23-year-old female with past medical history of end-stage renal disease on hemodialysis Mon day Monday, hypertension, anemia of chronic disease who went to [facility] with increasing shortness of breath found [...] Component Value Units Date/Time Culture, Body Fluid [[id number]] Collected: 05/26/18 1412 Specimen: Body Fluid from Pleural Fluid Updated: 05/30/18 8695 Specimen Description PLEURAL FLUID GRAM STAIN WBC'S SEEN GRAM STAIN NO ORGANISMS SEEN GRAM STAIN STAIN PERFORMED ON CYTOSPIN CULTURE NO GROWTH 4 DAYS Culture, Body Fluid [[id number]] Collected: 05/26/18 1513 Specimen: Other from Ascites Fluid Updated: 05/30/18 0732 Specimen Description ASCITES FLUID GRAM STAIN STAIN PERFORMED ON CYTOSPIN GRAM STAIN WBC'S SEEN GRAM STAIN NO EPITHELIAL CELLS SEEN GRAM STAIN NO ORGANISMS SEEN CULTURE NO GROWTH 4 DAYS Gram stain [[id number]] Collected: 05/29/18 1256 Specimen: Sputum from Thoracic Fluid Updated: 05/29/18 2339 Specimen Description THORACIC FLUID CULTURE 1+ WBC'S SEEN NO ORGANISMS SEEN Lactate dehydrogenase, body fluid [[id number]] Collected: 05/29/18 1256 Specimen: Body Fluid from Pleural, Right Updated: 05/29/18 1619 FLUID LDH 151 U/L Cholesterol, body fluid [[id number]] Collected: 05/29/18 1256 Specimen: Body Fluid from Pleural, Right Updated: 05/29/18 1619 FLUID CHOLESTEROL 56 mg/dL Sputum culture [[id number]] Collected: 05/27/182014 Specimen: Sputum from Sputum Updated: [...] 17. The mitral valve is normal. 18. Wxuy-be-trfss ate eccentric mitral regurgitation is present. 19. [...] anemia of chronic disease who went to [facility] with increasing shortness of breath due [...] MD, FACP 05/30/2018 9:10 AM Dictation software, 51fanli, used which may contain error for similar [...] 05/30/18417 Date of Service: 05/30/18416 Status: Signed Graphite Grinder: Nandini Robertson RN (Registered Nurse) Pt did well overnight. VSS. Chart review completed. Carolina Cantor, Medical Student - 05/29/2018 7:56 PM PDT Progress Notes by Carolina Mahmood DO at 05/29/181955 Author: Carolina Mahmood DO Service: Cardiology Author Type: Physician Filed: 05/29/182014 Date of Service: 05/29/181955 Status: Signed Graphite Grinder: Carolina Mahmood DO (Physician) [facility] Service: Cardiology Progress Note Hospital [...] 05/29/181742 Date of Service: 05/29/181739 Status: Signed Graphite Grinder: Flaco Mario RN (Registered Nurse) Pt VSS. [...] Notes by Anthony Belcher MD at 05/29/18 1344 Author: Anthony Belcher MD Service: Hospitalist Author Type: Physician Filed: 05/29/18 1586 Date of Service: 05/29/181342 Status: Signed Graphite Grinder: Anthony Belcher MD (Physician) Hospitalist Progress Note Dara Louise 23 y.o. [id number] female [facility] Day: LOS: 3 days Patient Summary: 23-year-old female with past medical history of end-stage renal dis ease on hemodialysis Monday, hypertension, anemia of chronic disease who we nt to [facility] with increasing shortness of breath found [...] Value Units Date/Time Lactate dehydrogenase, body fluid [[id number]] Collected: 05/29/18 125 Specimen: Body Fluid from Pleural, Right Updated: 05/29/18 1315 Cholesterol, body fluid [[id number]] Collected: 05/29/18 125 Specimen: Body Fluid from Pleural, Right Updated: 05/29/18 1315 Gram stain [[id number]] Collected: 05/29/18 125 Specimen: Sputum from OTHR-w source desc (F6) Updated: 05/29/18 1309 Sputum culture [[id number]] Collected: 05/27/182014 Specimen: Sputum from Sputum Updated: 05/29/18 0947 Specimen Description SPUTUM GRAM STAIN LESS THAN 10 WBCS/LPF GRAM STAIN LESS THAN 10 SEC/LPF GRAM STAIN NO ORGANISMS SEEN CULTURE 1+ NORMAL UPPER RESPIRATORY ALESSANDRO HIV 1/2 Ab reflex [[id number]] Collected: 05/28/18 1236 Specimen: Blood Updated: 05/29/18 0942 HIV1/HIV2 NON REACTIVE Protime-INR [[id number]] Collected: 05/29/1852 Specimen: Blood Updated: 05/29/1840 INR 1.5 APTT [[id number]] Collected: 05/29/1852 Specimen: Blood Updated: 05/29/1840 APTT 29 seconds Culture, Body Fluid [[id number]] Collected: 05/26/18 1513 Specimen: Other from Ascites Fluid Updated: 05/29/18 0920 Specimen Description ASCITES FLUID GRAM STAIN STAIN PERFORMED ON CYTOSPIN GRAM STAIN WBC'S SEEN GRAM STAIN NO EPITHELIAL CELLS SEEN GRAM STAIN NO ORGANISMS SEEN CULTURE NO GROWTH 3 DAYS Culture, Body Fluid [[id number]] Collected: 05/26/18 1412 Specimen: Body Fluid from Pleural Fluid Updated: 05/29/18917 Specimen Description PLEURAL FLUID CULTURE NO GROWTH 3 DAYS Comprehensive metabolic panel [[id number]] (Abnormal) Collected: 05/29/18456 Specimen: Blood Updated: 05/29/18615 [...] mL/min/1.73m2 CBC W/Auto Diff (Reflex to Manual) [[id number]] (Abnormal) Collected: 05/29/18456 Specimen: Blood Updated: 05/29/18612 [...] 0.05 K/uL MORPHOLOGY 2+ hCG, serum, qualitative [[id number]] Collected: 05/28/18922 Specimen: Blood Updated: 05/28/181949 TEST,SERUM NEGATIVE C-reactive protein [[id number]] (Abnormal) Collected: 05/28/18922 Specimen: Blood Updated: 05/28/181940 CRP 5.1 (H) mg/dL Sedimentation rate, automated [[id number]] Collected: 05/28/18922 Specimen: Blood Updated: 05/28/18 1734 ESR 2 mm/Hr Hepatitis panel,acute [[id number]] Collected: 05/28/18 1236 Specimen: Blood Updated: 05/28/18 1650 HAV AB,IGM NON REACTIVE HEP B SURFACE AG NON REACTIVE ANTI HEP B CORE,IGM NON REACTIVE HEPATITIS C NON REACTIVE HEPATITIS INTERP No serologic evidence of HAV, HBV, or HCV infection. Troponin I [[id number]] Collected: 05/28/18922 Specimen: Blood Updated: 05/28/18 143 TROPONIN I 0.034 ng/mL Troponin I [[id number]] Collected: 05/28/18 1359 Specimen: Blood Updated: 05/28/18 143 TROPONIN I 0.037 ng/mL Renal function panel [[id number]] (Abnormal) Collected: 05/28/18 1209 Specimen: Blood from Blood Updated: 05/28/18 1302 SODIUM 141 mmol/L POTASSIUM 4.3 mmol/L CHLORIDE 101 mmol/L CO2 29 mmol/L ANION GAP AGAP 15 mmol/L GLUCOSE 78 mg/dL BUN 43 (H) mg/dL CREATININE 7.97 (H) mg/dL CALCIUM 9.1 mg/dL Albumin 3.6 g/dL PHOSPHORUS 6.3 (H) mg/dL EGFR 6 (L) mL/min/1.73m2 CBC W/Auto Diff (Reflex to Manual) [[id number]] (Abnormal) Collected: 05/28/18922 Specimen: Blood Updated: 05/28/18 [...] 0.05 K/uL MORPHOLOGY 1+ Comprehensive metabolic panel [[id number]] (Abnormal) Collected: 05/28/18922 Specimen: Blood Updated: 05/28/18 [...] (H) U/L EGFR 6 (L) mL/min/1.73m2 TSH [[id number]] Collected: 05/28/18922 Specimen: Blood Updated: 05/28/18 1210 TSH 1.270 uIU/mL Pathologist consult [[id number]] Collected: 05/26/18 1412 Updated: 05/28/18 1113 Pathologist Consult -- Hepatitis panel, chronic [[id number]] (Abnormal) Collected: 05/27/18 1758 Updated: 05/27/18 203 Hep A Total Ab REACTIVE (A) HEP B SURFACE AG NON REACTIVE HEP B CORE AB,TOTAL NON REACTIVE HEP B SURFACE ANTIBODY 3.27 (H) IV HEPATITIS C NON REACTIVE HEPATITIS INTERP Current or past HAV infection. Past HBV infection or vaccination. No ser ologic evidence of HCV infection. CBC w/auto diff (reflex to manual) [[id number]] (Abnormal) Collected: 05/27/18 0425 Specimen: Blood Updated: [...] K/uL MORPHOLOGY 2+ Platelet Estimate DECREASED Phosphorus [[id number]] (Abnormal) Collected: 05/27/18424 Specimen: Blood Updated: 05/27/18628 PHOSPHORUS 8.0 (H) mg/dL Basic Metabolic Panel [[id number]] (Abnormal) Collected: 05/27/18424 Specimen: Blood Updated: 05/27/18628 SODIUM 135 mmol/L POTASSIUM 5.9 (H) mmol/L CHLORIDE 96 (L) mmol/L CO2 25 mmol/L ANION GAP AGAP 20 mmol/L GLUCOSE 74 mg/dL BUN 51 (H) mg/dL CREATININE 9.2 (H) mg/dL BUN/CREAT 6 CALCIUM 9.4 mg/dL EGFR 5 (L) mL/min/1.73m2 Magnesium [[id number]] (Abnormal) Collected: 05/27/18424 Specimen: Blood Updated: 05/27/18628 MAGNESIUM 2.7 (H) mg/dL Brain natriuretic peptide [[id number]] (Abnormal) Collected: 05/27/18424 Specimen: Blood Updated: 05/27/1846 BRAIN NATRIURETIC PEPTIDE 1,153.92 (H) pg/mL Respiratory Filmarray [[id number]] (Abnormal) Collected: 05/26/181805 Specimen: Nasopharynx/Oropharynx Updated: 05/26/182141 [...] performed by Molecular Methodology MRSA by PCR [[id number]] Collected: 05/26/181805 Specimen: Nasopharyngeal from Nares(Nose) Updated: 05/26/182025 SOURCE NARES(NOSE) MRSA PCR NEGATIVE Procalcitonin [[id number]] (Abnormal) Collected: 05/26/181726 Updated: 03/23/19 1839 PROCALCITONIN 0.76 (H) ng/mL Albumin, Body Fluid [[id number]] Collected: 05/26/181411 Specimen: Body Fluid from Lung, Right Lower Lobe Updated: 05/26/18 172 FLUID ALBUMIN 2.3 g/dL Total Protein, Body Fluid [[id number]] Collected: 05/26/181411 Specimen: Body Fluid from Lung, Right Lower Lobe Updated: 05/26/18 172 FLUID TOTAL PROTEIN 4.2 g/dL FLUID TP SOURCE PLEURAL FLUID Cell count, Body Fluid [[id number]] Collected: 05/26/181411 Specimen: Body Fluid from Lung, Right Lower Lobe Updated: 05/26/18 170 FLUID TYPE PLEURAL FLUID COLOR SAMMIE APPEARANCE CLOUDY RBC'S 3,000 /mm3 TOTAL NUCLEATED CELLS 253 /mm3 NEUTROPHILS 22 % LYMPHOCYTES 8 % MONOCYTES/MACROPHAGES 65 % Mesothelial Cells 5 % CELLS COUNTED 100 pH, Body Fluid [[id number]] Collected: 05/26/181411 Specimen: Body Fluid from Lung, [...] 17. The mitral valve is normal. 18. Qkee-he-ehqtytkk eccentric mitral regurgitation i s present. 19. [...] mitral valve is normal. Mitral Kait ve: Smyv-ei-yixmfghz eccentric mitral regurgitation is present. Tricuspid Valve: [...] maxP.08 mmHg TR Vmax: 2.7 4 m/s Psychiatric Social Worker Supervisor: MOO Authenticated by: Robel Yusuf MD Report [...] 17. The mitral valve is normal. 18. Mqpe-ku-hgcxc ate eccentric mitral regurgitation is present. 19. [...] Acute systolic CHF (congestive heart failure) ([facility]) Transaminitis ASSESSMENT & PLAN Bilateral pleural effusion [...] Service: Nephrology Author Type: Physician Filed: 05/31/18 5485 Date of Service: 05/29/18725 Status: Addendum Graphite Grinder: René Anguiano MD (Physician) Related Notes: Original Note by KRISHNA Waters (Nurse Practitioner) filed at 05/05 08/22 7216 Hospital Problem List: Active Problems: ESRD on [...] put on "an antibiotic" for pneumonia at [facility] ED. Was throwing up & could [...] the prelim submitted orders, MWF No acute OUTPATIENT ADMITTING CLERK indication ESTEFANY as indicated with HD [...] 0555 Date of Service: 05/29/18553 Status: Signed Graphite Grinder: Vernell Weston RN (Registered Nurse) End of [...] 05/28/181940 Date of Service: 05/28/181939 Status: Signed Graphite Grinder: Saundra Hartley RN (Registered Nurse) No acute [...] 05/28/181721 Date of Service: 05/28/181720 Status: Signed Graphite Grinder: Cayden Caceres RN (Registered Nurse) UF 2 L with HD today. nthony Belcher MD - 05/28/2018 12:26 PM PDTFormatting of this note might be different from the or iginal. Progress Notes by Anthony Belcher MD at 05/28/18 1226 Author: Anthony Belcher MD Service: Hospitalist Author Type: Physician Filed: 05/28/18 1233 Date of Service: 05/28/18 1226 Status: Signed Graphite Grinder: Anthony Belcher MD (Physician) Hospitalist Progress Note Dara Louise 23 y.o. [id number] female [facility] Day: LOS: 2 days Patient Summary: 23-year-old female with past medical history of end-stage renal dis ease on hemodialysis Monday, hypertension, anemia of chronic disease who we nt to [facility] with increasing shortness of breath found [...] Component Value Units Date/Time Culture, Body Fluid [[id number]] Collected: 05/26/18 3609 Specimen: Other from Ascites Fluid Updated: 05/28/18 1225 Specimen Description ASCITES FLUID GRAM STAIN STAIN PERFORMED ON CYTOSPIN GRAM STAIN WBC'S SEEN GRAM STAIN NO EPITHELIAL CELLS SEEN GRAM STAIN NO ORGANISMS SEEN CULTURE NO GROWTH 2 DAYS Culture, Body Fluid [[id number]] Collected: 05/26/18 141 Specimen: Body Fluid from Pleural Fluid Updated: 05/28/18 1223 Specimen Description PLEURAL FLUID CULTURE NO GROWTH 2 DAYS Comprehensive metabolic panel [[id number]] (Abnormal) Collected: 05/28/18922 Specimen: Blood Updated: 05/28/18 [...] (H) U/L EGFR 6 (L) mL/min/1.73m2 TSH [[id number]] Collected: 05/28/18922 Specimen: Blood Updated: 05/28/18 1210 TSH 1.270 uIU/mL Pathologist consult [[id number]] Collected: 05/26/18 141 Updated: 05/28/18 1113 Pathologist Consult -- Troponin I [[id number]] Collected: 05/28/18922 Specimen: Blood Updated: 05/28/18 1055 CBC W/Auto Diff (Reflex to Manual) [[id number]] Collected: 05/28/18922 Specimen: Blood Updated: 05/28/18 0939 Sputum culture [[id number]] Collected: 05/27/182014 Specimen: Sputum from Sputum Updated: 05/28/18902 Specimen Description SPUTUM GRAM STAIN LESS THAN 10 WBCS/LPF GRAM STAIN LESS THAN 10 SEC/LPF GRAM STAIN NO ORGANISMS SEEN CULTURE CULTURE IN PROGRESS Hepatitis panel, chronic [[id number]] (Abnormal) Collected: 05/27/181757 Updated: 05/27/182030 Hep A Total Ab REACTIVE (A) HEP B SURFACE AG NON REACTIVE HEP B CORE AB,TOTAL NON REACTIVE HEP B SURFACE ANTIBODY 3.27 (H) IV HEPATITIS C NON REACTIVE HEPATITIS INTERP Current or past HAV infection. Past HBV infection or vaccination. No ser ologic evidence of HCV infection. CBC w/auto diff (reflex to manual) [[id number]] (Abnormal) Collected: 05/27/18424 Specimen: Blood Updated: 05/27/18 [...] K/uL MORPHOLOGY 2+ Platelet Estimate DECREASED Phosphorus [[id number]] (Abnormal) Collected: 05/27/18424 Specimen: Blood Updated: 05/27/18 0629 PHOSPHORUS 8.0 (H) mg/dL Basic Metabolic Panel [[id number]] (Abnormal) Collected: 05/27/18424 Specimen: Blood Updated: 05/27/1829 SODIUM 135 mmol/L POTASSIUM 5.9 (H) mmol/L CHLORIDE 96 (L) mmol/L CO2 25 mmol/L ANION GAP AGAP 20 mmol/L GLUCOSE 74 mg/dL BUN 51 (H) mg/dL CREATININE 9.2 (H) mg/dL BUN/CREAT 6 CALCIUM 9.4 mg/dL EGFR 5 (L) mL/min/1.73m2 Magnesium [[id number]] (Abnormal) Collected: 05/27/18424 Specimen: Blood Updated: 05/27/18 0629 MAGNESIUM 2.7 (H) mg/dL Brain natriuretic peptide [[id number]] (Abnormal) Collected: 05/27/18424 Specimen: Blood Updated: 05/27/18 0546 BRAIN NATRIURETIC PEPTIDE 1,153.92 (H) pg/mL Respiratory Filmarray [[id number]] (Abnormal) Collected: 05/26/181805 Specimen: Nasopharynx/Oropharynx Updated: 05/26/182141 [...] performed by Molecular Methodology MRSA by PCR [[id number]] Collected: 05/26/18 180 Specimen: Nasopharyngeal from Nares(Nose) Updated: 05/26/182025 SOURCE NARES(NOSE) MRSA PCR NEGATIVE Procalcitonin [[id number]] (Abnormal) Collected: 05/26/18 1727 Updated: 05/26/18 1839 PROCALCITONIN 0.76 (H) ng/mL Albumin, Body Fluid [[id number]] Collected: 05/26/18 1412 Specimen: Body Fluid from Lung, Right Lower Lobe Updated: 05/26/18 1729 FLUID ALBUMIN 2.3 g/dL Total Protein, Body Fluid [[id number]] Collected: 05/26/18 1412 Specimen: Body Fluid from Lung, Right Lower Lobe Updated: 05/26/18 1729 FLUID TOTAL PROTEIN 4.2 g/dL FLUID TP SOURCE PLEURAL FLUID Cell count, Body Fluid [[id number]] Collected: 05/26/18 141 Specimen: Body Fluid from Lung, Right Lower Lobe Updated: 05/26/18 1708 FLUID TYPE PLEURAL FLUID COLOR SAMMIE APPEARANCE CLOUDY RBC'S 3,000 /mm3 TOTAL NUCLEATED CELLS 253 /mm3 NEUTROPHILS 22 % LYMPHOCYTES 8 % MONOCYTES/MACROPHAGES 65 % Mesothelial Cells 5 % CELLS COUNTED 100 pH, Body Fluid [[id number]] Collected: 05/26/18 1412 Specimen: Body Fluid from Lung, Right Lower Lobe Updated: 05/26/18 1508 FLUID PH 7.45 Procalcitonin [[id number]] (Abnormal) Collected: 05/26/18 1214 Updated: 05/26/18 1330 PROCALCITONIN 0.56 (H) ng/mL Cardiac Panel [[id number]] (Abnormal) Collected: 05/26/18 1214 Updated: 05/26/18 1312 [...] ng/mL CK-MB Index 2.7 Brain natriuretic peptide [[id number]] (Abnormal) Collected: 05/26/18 1214 Updated: 05/26/18 1254 [...] radiologist report and is used for image Scholrly Echo Cardiac Adult Complete Result Date: 05/27/2018 [...] 17. The mitral valve is normal. 18. Wwsb-pl-yuqnwbom eccentric mitral regurgitation i s present. 19. [...] mitral valve is normal. Mitral Kait ve: Guai-rt-nwgusdgs eccentric mitral regurgitation is present. Tricuspid Valve: [...] maxP.08 mmHg TR Vmax: 2.7 4 m/s Psychiatric Social Worker Supervisor: MOO Authenticated by: Robel Yusuf MD Report [...] 17. The mitral valve is normal. 18. Oojm-mg-vsywq ate eccentric mitral regurgitation is present. 19. [...] 05/28/1808 Date of Service: 05/28/18703 Status: Signed Graphite Grinder: Timothy Butler RN (Registered Nurse) Pt A&Ox4 [...] 05/27/181957 Date of Service: 05/27/181954 Status: Signed Graphite Grinder: Vernell Weston RN (Registered Nurse) Called into [...] 05/27/181924 Date of Service: 05/27/181922 Status: Signed Graphite Grinder: Saundra Hartley RN (Registered Nurse) Pt has [...] Author: DORON Ashby Service: (none) Author Type: Forest Ecologist Filed: 05/27/181533 Date of Service: 05/27/181529 Status: Signed Graphite Grinder: DORON Ashby (Forest Ecologist) 05/27/181529 Discharge Planning Evaluation Admitting Diagnosis SOB [...] Patient/Family concerns No Met with Dara Louise ([phone]) and discussed discharge planning. Pt is a 23 y.o., female who resides alone in [place], [place]. Pt states that she has supportive family and frie nds. Pt's mother lives 50 miles away; pt's sister lives 15 minutes away. Pt is independent and does not have a caregiver. Patient's PCP is: TIEN NICHOLSON Patient's insurance: Medicare and Medicaid Coverage concerns: None Medication coverage/concerns: None Community resources utilized / needed: Pt does outpatient dialysis at [facility] on Monday, Monday and Monday [...] Service: Hospitalist Author Type: Physician Filed: 05/27/18 9341 Date of Service: 05/27/18 1325 Status: Signed Graphite Grinder: Anthony Belcher MD (Physician) Hospitalist Progress Note Dara Lundberg Shiraz 23 y.o. [phone] [id number] female [facility] Day: LOS: 1 day Patient Summary: 23-year-old female with past medical history of end-stage renal dis ease on hemodialysis Monday, hypertension, anemia of chronic disease who we nt to [facility] with increasing shortness of breath found [...] Date/Time CBC w/auto diff (reflex to manual) [[id number]] (Abnormal) Collected: 05/27/18424 Specimen: Blood Updated: 05/27/18710 [...] K/uL MORPHOLOGY 2+ Platelet Estimate DECREASED Phosphorus [[id number]] (Abnormal) Collected: 05/27/18424 Specimen: Blood Updated: 05/27/18628 PHOSPHORUS 8.0 (H) mg/dL Basic Metabolic Panel [[id number]] (Abnormal) Collected: 05/27/18424 Specimen: Blood Updated: 05/27/18628 SODIUM 135 mmol/L POTASSIUM 5.9 (H) mmol/L CHLORIDE 96 (L) mmol/L CO2 25 mmol/L ANION GAP AGAP 20 mmol/L GLUCOSE 74 mg/dL BUN 51 (H) mg/dL CREATININE 9.2 (H) mg/dL BUN/CREAT 6 CALCIUM 9.4 mg/dL EGFR 5 (L) mL/min/1.73m2 Magnesium [[id number]] (Abnormal) Collected: 05/27/18424 Specimen: Blood Updated: 05/27/18 0629 MAGNESIUM 2.7 (H) mg/dL Brain natriuretic peptide [[id number]] (Abnormal) Collected: 05/27/18424 Specimen: Blood Updated: 05/27/18 0546 BRAIN NATRIURETIC PEPTIDE 1,153.92 (H) pg/mL Respiratory Filmarray [[id number]] (Abnormal) Collected: 05/26/181805 Specimen: Nasopharynx/Oropharynx Updated: 05/26/182141 [...] performed by Molecular Methodology MRSA by PCR [[id number]] Collected: 05/26/181805 Specimen: Nasopharyngeal from Nares(Nose) Updated: 05/26/182025 SOURCE NARES(NOSE) MRSA PCR NEGATIVE Procalcitonin [[id number]] (Abnormal) Collected: 05/26/18 1727 Updated: 05/26/18 183 PROCALCITONIN 0.76 (H) ng/mL Culture, Body Fluid [[id number]] Collected: 05/26/18 141 Specimen: Body Fluid from Pleural Fluid Updated: 05/26/18 181 Pathologist consult [[id number]] Collected: 05/26/181411 Updated: 05/26/18 174 Albumin, Body Fluid [[id number]] Collected: 05/26/181411 Specimen: Body Fluid from Lung, Right Lower Lobe Updated: 05/26/18 172 FLUID ALBUMIN 2.3 g/dL Total Protein, Body Fluid [[id number]] Collected: 05/26/18 1412 Specimen: Body Fluid from Lung, Right Lower Lobe Updated: 05/26/18 1729 FLUID TOTAL PROTEIN 4.2 g/dL FLUID TP SOURCE PLEURAL FLUID Cell count, Body Fluid [[id number]] Collected: 05/26/18 1412 Specimen: Body Fluid from Lung, Right Lower Lobe Updated: 05/26/18 1708 FLUID TYPE PLEURAL FLUID COLOR SAMMIE APPEARANCE CLOUDY RBC'S 3,000 /mm3 TOTAL NUCLEATED CELLS 253 /mm3 NEUTROPHILS 22 % LYMPHOCYTES 8 % MONOCYTES/MACROPHAGES 65 % Mesothelial Cells 5 % CELLS COUNTED 100 Culture, Body Fluid [[id number]] Collected: 05/26/18 1513 Specimen: Other from Ascites Fluid Updated: 05/26/18 1631 Specimen Description ASCITES FLUID GRAM STAIN STAIN PERFORMED ON CYTOSPIN GRAM STAIN WBC'S SEEN GRAM STAIN NO EPITHELIAL CELLS SEEN GRAM STAIN NO ORGANISMS SEEN CULTURE PENDING pH, Body Fluid [[id number]] Collected: 05/26/18 141 Specimen: Body Fluid from Lung, Right Lower Lobe Updated: 05/26/18 1508 FLUID PH 7.45 Procalcitonin [[id number]] (Abnormal) Collected: 05/26/18 1214 Updated: 05/26/18 1330 PROCALCITONIN 0.56 (H) ng/mL Cardiac Panel [[id number]] (Abnormal) Collected: 05/26/18 1214 Updated: 05/26/18 1312 [...] ng/mL CK-MB Index 2.7 Brain natriuretic peptide [[id number]] (Abnormal) Collected: 05/26/18 1214 Updated: 05/26/18 1254 [...] radiologist report and is used for image [employer] only PROBLEM LIST Active Problems: ESRD on [...] 05/27/18546 Date of Service: 05/27/18543 Status: Signed Graphite Grinder: Vernell Weston RN (Registered Nurse) End of [...] 05/26/181950 Date of Service: 05/26/181947 Status: Signed Graphite Grinder: Saundra Hartley, RN (Registered Nurse) Pt complained [...] of shift audit complete. George Hartley, RN onver arturo Transaction, Provider Unknown - 05/26/2018 6:05 PM PDT Progress Notes by Jae Gutierres RPH at 05/26/181804 Author: Jae Gutierres RPH Service: Pharmacy Author Type: Pharmacist Filed: 05/26/181804 Date of Service: 05/26/181804 Status: Signed Graphite Grinder: Jae Gutierres RPH (Pharmacist) Renal Dosing Monitoring: [...] | | | | | at [facility], [address] | | | | | | [employer], | | | | | | [place] [address] | | | | | |Testing performed at [facility], [address] [facility], [place] [address] | | | | | | | [...] Hospital, | | | | | | [place] [address] | | | | + + + [...] | | | | | at [facility], [address] | | | | | | [facility], | | | | | | [place] [address] | | | | | |Testing performed at [facility], [address] [place] [address] | | | | | | | [...] Hospital, | | | | | | [place] [address] | | | | + + + [...] | | | | | at [facility], [address] | | | | | | [employer], | | | | | | [place] [address] | | | | | |Testing performed at [facility], [address] [place] [address] | | | | | | | [...] Hospital, | | | | | | [place] [address] | | | | + + + [...] | EXTERNAL LAB | | not a observation assistant validated sample type for this method. No reference | | | ranges have been established. Testing performed at [facility], [address] | | | [place] [address] | | + + + + +---------+ [...] EXTERNAL LAB | | is not a observation assistant validated sample type for this method. No | | | reference ranges have been established. Testing performed at [facility], | | | [address] [place] [address] | | + + + + +---------+ [...] | | space is punctured with an 8-Central African thoracentesis catheter. Fluid is | | | [...] the pleural space is punctured with an 8-Central African | | thoracentesis catheter. Fluid is aspirated [...] | | | Patient | performed at [facility];[address] | | LAB | | | | [address] [facility];[place], [place] | | | | | | [address] | | | | + + + [...] [facility];[address] | | | | | | [address];[place], [place] | | | | | | [address] | | | | + + + [...] | | | | | at [facility], [address] | | | | | | [facility], | | | | | | [place] [address] | | | | | |Testing performed at [facility], [address] [place] [address] | | | | | | | [...] Hospital, | | | | | | [place] [address] | | | | + + + [...] | | | | [facility];[address];[place] [address] | | | | + + + [...] | | | | | | [facility], [address] [facility] | | | | | | [place], [place] | | | | | | [address] | | | | + + + [...] Hospital, | | | | | | [place] [address] | | | | + + + [...] [facility];[address] | | | | | | [facility];[place], [place] | | | | | | [address] | | | | + + + [...] + + | Historically converted procedure from [facility] | EXTERNAL LAB | + + + [...] | | | | [facility];[address] [place] [address] | | | | | | [facility];[place] [address] | | | | + + + [...] [facility], [address] | | LAB | | | | [facility], | | | | | | [place] [address] | | | | + + + [...] | | | | | at [facility], [address] | | | | | | [employer], | | | | | | [place] [address] | | | | | |Testing performed at [facility], [address] [place] [address] | | | | | | | [...] [facility], [address] | | LAB | | | | [address], | | | | | | [place] [address] | | | | + + + [...] | | | QUALITATIVE | performed at [facility], [address] | | LAB | | | | [address] [facility], | | | | | | [place] [address] | | | | + + + [...] at [facility], [address] | uIU/mL | LAB | | | | [address] [place], | | | | | | [place] [address] | | | | + + + [...] Hospital, | | | | | | [place] [address] | | | | + + + [...] | | | preparation was performed by [employer], Replaced by [facility] [address] | | | [place] [address] (Design Manager: Matt Claudio D.O.; | | | CLIA#: [id number]). Professional interpretation was performed by | | | [employer], [facility], [facility] [address] | | | [place] [address] (Design Manager: Daniel Larson M.D.; | | | CLIA#: [id number]).6 Diagnostician: Marie BROOKS ([facility]) | | | Concrete Layer Diagnostician: Anahy Da Silva MD Pathologist | [...] | | | | | | [facility], [address] [facility] | | | | | | [place], [place] | | | | | | [address] | | | | + + + [...] valve is normal. 18. | | | Vzyw-wg-lcdjsexd eccentric mitral regurgitation is present. 19. | [...] valve is normal. 18. | | | Nyim-nq-kdorhwgu eccentric mitral regurgitation is present. 19. | [...] is | | | normal. Mitral Valve: Bebw-pg-dapwfjiw eccentric mitral regurgitation | | | is [...] TR Vmax: 2.74 m/s | | | Psychiatric Social Worker Supervisor: MOO Authenticated by: Robel Yusuf MD Report [...] aortic stenosis.17. The mitral valve is normal.18. Qxzx-be-qjvedhyi | | eccentric mitral regurgitation is present.19. [...] | | arch are normal.26. No mass sdzzcfnhoc35. No clot visualized FINDINGS--------ECG | | rhythm: [...] mitral valve is normal.Mitral Valve: | | Whmn-cc-tvjjqviw eccentric mitral regurgitation is present.Tricuspid Valve: Severe [...] mlLAESV Index (A-L): 30.43 ml/m2LAAs A2C: 20.97 ov7REDDR | | A-L A2C: 65.71 mlLALs A2C: 5.68 cmLAAs A4C: 19.94 bb2WQPUU A-L A4C: 60.20 mlLALs | | A4C: 5.60 cmTAPSE: 1.58 cmHR: 79.62 BPMAV maxP.06 mmHgAV meanP.71 | | mmHgAV Vmax: 1.23 m/Elizabeth Vmean: 0.92 m/Elizabeth VTI: 20.07 cmAVA Vmax: 1.74 cm2AVA | | (VTI): 1.93 dp6TUUO Vmax: 0.00 cm2/m2AVAI (VTI): 0.00 cm2/m2LVOT maxP.22 [...] maxP.08 | | mmHgTR Vmax: 2.74 m/s Psychiatric Social Worker Supervisor: Ronyhenticated by: Robel Yusuf [facility] | | Date/Time: 05-27-2018 13:59:57 IMPRESSION: [...] The mitral valve is | | normal.18. Yqtp-qy-nkdpggkg eccentric mitral regurgitation is present.19. Severe | [...] and aortic arch are normal.26. No mass rdmxxijodv41. No clot visualized | |LVPWd: 1.27 cm [...] |TR Vmax: 2.74 m/s | | | |Psychiatric Social Worker Supervisor: MW | |Authenticated by: Robel Yusuf MD [...] The mitral valve is normal. | |18. Pgvf-wl-imxfhefx eccentric mitral regurgitation is present. | |19. [...] | | LAB | | | | [facility];[address] | | | | | [address];[place] [address] | | | | + + + [...] [facility], [address] | | LAB | | | | [address], | | | | | | [place] [address] | | | | + + + [...] | | LAB | | | | [facility];[address] | | | | | | [address];[place] [address] | | | | + + + [...] [facility], [address] | | LAB | | | | [address], | | | | | | [place] [address] | | | | + + + [...] Hospital, | | | | | | [place] [address] | | | | + + + [...] Methodology | | | Testing performed at [facility], [address] [place], [place] | | | [address] | | + + + + +---------+ [...] NEGATIVE Testing | | | performed at [facility];[address] [place] [address];[place] [address] | | + + + + +---------+ [...] | | | | | | at [facility];[address] [place] [address] | | | | | | [facility];[place] [address] | | | | + + + [...] AT 1702: | | | PREVIOUSLY REPORTED <[id number] TOTAL NUCLEATED CELLS | | | 253 CORRECTED RESULTS CALLED TO DR. HUNTER IN ED AT | | | 1705 BY LGJ CORRECTED ON 05/26 AT 1702: PREVIOUSLY REPORTED 374 | | | NEUTROPHILS 22 | | | LYMPHOCYTES 8 | | | MONOCYTES/MACROPHAGES 65 Mesothelial | | | Cells 5 CELLS COUNTED | | | 100 Testing performed at [facility];[address] | | | [facility];[place] [address] | | + + + + +---------+ [...] | EXTERNAL LAB | | not a observation assistant validated sample type for this method. No reference | | | ranges have been established. Testing performed at [facility], [address] | | | [place] [address] FLUID TP SOURCE | | | PLEURAL FLUID Testing performed at [facility];[address] | | | [facility];[place] [address] | | + + + + +---------+ [...] | EXTERNAL LAB | | not a observation assistant validated sample type for this method. No | | | reference ranges have been established. Testing performed at [facility], | | | [address] [place] [address] | | + + + + +---------+ [...] EXTERNAL LAB | | Testing performed at [facility];[address] [place] [address];[place] [address] | | + + + + +---------+ [...] | | | | | | at [facility];[address] | | | [address];[place] [address] | | | | + + + [...] | | | | | | at [facility];[address] [place] [address] | | | | | | [facility];[place] [address] | | | | + + + [...] | | LAB | | | | [facility];[address] [facility] | | | | | | Blvd;[place] [address] | | | | + + + [...]
--- OUTSIDE RECORDS SUMMARY | ~2019-07-14 | XMS | Encounter Summary ---
Demographics + + + | Address | [address] | | | [place] [address] | + + + | Home Phone [...] | Author | [facility] | | | and [place] | + + + | Organization | [facility] | | [...] Providers + +------+ + | Care Appeals Nurse Name | Role | Phone | + +------+ + PCP | Unavailable | + +------+ + Encounter Details +--------+---------+ + + + | Date | Type | Department | Care Team | Description | +--------+---------+ + + + | 07/10/ | E-Visit | [facility] | Jorje Camp | | | 2017 | | NEPHROLOGY [address] | M, DO [address] | | | | | [address] | [place] | | | | | [place], [place] | [place], [place] | | | | | [address] | [address] | | | | | [phone] | | | +--------+---------+ + + + [...]
--- OUTSIDE RECORDS SUMMARY | ~2019-07-14 | XMS | Encounter Summary ---
Demographics + + + | Address | [address] | | | [place] [address] | + + + | Home Phone [...] [facility] | | | and [place] | + + + | Organization | [facility] | | [...] Team Providers + +------+ + | Care Pump Tender Name | Role | Phone | [...] + + | 12/17/ | Telephone | [facility] | [place], | Appointment | | 2019 | | CENTER CASE | Irish Obrien CMA | (Appointment with | | | | MANAGEMENT [address] | | PCP needed) | | | | [address] | | | | | | [place], [place] | | | | | | [address] | | | | | | [phone] | | | +--------+ + + + [...]
--- OUTSIDE RECORDS SUMMARY | ~2019-07-14 | XMS | Encounter Summary ---
Demographics + + + | Address | [address] | | | [place] [address] | + + + | Home Phone [...] | | | | | [place] [address] | | + + + + + | Thania Mallory | ECON | [address] | | | | | [place] [address] | | + + + + + | Deidra Weldon | ECON | [address] | | | | | [place] | | | | | [address] | | + + + + + Care Team Providers + +------+ + | Care Sales And Service Engineer Name | Role | Phone [...] | | | | | [address] [place], | [place], [place] | | | | | [place] [address] | [address] | | | | | [phone] | | | +--------+ + + + [...] | | | | | | [place] | | | | | | [address] | | | | | | [phone] | | | | | | | | +--------+ + + + + documented as of this encounter Visit Diagnoses Not on filedocumented in this encounter"
--- OUTSIDE RECORDS SUMMARY | ~2019-07-14 | XMS | Encounter Summary ---
Demographics + + + | Address | [address] | | | [place] [address] | + + + | Home Phone [...] | | | | | [place] [address] | | + + + + + | Thania Mallory | ECON | [address] | | | | | [place] [address] | | + + + + + | Deidra Weldon | ECON | [address] | | | | | [place] | | | | | [address] | | + + + + + Care Team Providers + +------+ + | Care Plant Specialist Name | Role | Phone | + +------+ + | Shahid Camargo MD | PCP | | + +------+ + Encounter Details +--------+ + + + + | Date | Type | Department | Care Team | Description | +--------+ + + + + | 12/20/ | Hospital | Radiology at [facility] | | | | 2012 | Encounter | [address] [facility] | | | | | | [place] | | | | | | [facility], | | | | | | [address] [place] [address] | | | | | | [place], [place] | | | | | | [address] | | | | | | [phone] | | | +--------+ + + + [...] Camelia | | | | | | [place], [place] | | | | | | [address] | | | | | | [phone] | | | | | | | [...]
--- OUTSIDE RECORDS SUMMARY | ~2019-07-14 | XMS | Encounter Summary ---
Demographics + + + | Address | [address] | | | [place] [address] | + + + | Home Phone [...] | Author | [facility] | | | and [place] | + + + | Organization | [facility] | [...] + +------+ + | Care Marketing Sales Representative Name | Role | Phone [...] | | [address] | [place] | (Primary Dx); | | | | [place], [place] | [place], [place] | Anemia in ESRD | | | | [address] | [address] | (end-stage renal | | | | [phone] | | disease) ([facility]) | [...] into the vein Three times a w viejas. iron sucrose (VENOFER) 20 mg/mL injection Inject [...] the Nephrology Team in 2 weeks. CC: Dutton Fina Joy MD, [facility], [facility] Liliana james signed by Jorje Camp DO [...]
--- OUTSIDE RECORDS SUMMARY | ~2019-07-14 | XMS | Encounter Summary ---
Demographics + + + | Address | [address] | | | [place] [address] | + + + | Home Phone [...] | | | | | [place] [address] | | + + + + + | Thania Mallory | ECON | [address] | | | | | [place] [address] | | + + + + + | Deidra Weldon | ECON | [address] | | | | | [place] | | | | | [address] | | + + + + + Care Team Providers + +------+ + | Care Commercial Carpenter Name | Role | Phone | [...] | | | | [address] [place] | [facility] | | | | | [address], | [place], [place] | | | | | [place] [address] | [address] | | | | | [phone] | | | +--------+ + + + [...] Denise | | | | | | [place] | | | | | | [address] | | | | | | [phone] | | | | | | | | +--------+ + + + + documented as of this encounter Visit Diagnoses Not on filedocumented in this encounter"
--- OUTSIDE RECORDS SUMMARY | ~2019-07-14 | XMS | Encounter Summary ---
Demographics + + + | Address | [address] | | | [place] [address] | + + + | Home Phone [...] + | Author | [facility] | | | and [place] | + + + | Organization | [facility] [...] Providers + +------+ + | Care Die Reamer Name | Role | Phone | [...] NEPHROLOGY [address] | M, DO [address] | | | | | [address] | [place] | | | | | [place], [place] | [place], [place] | | | | | [address] | [address] | | | | | [phone] | | | +--------+ + + + [...]
--- OUTSIDE RECORDS SUMMARY | ~2019-07-14 | XMS | Encounter Summary ---
Demographics + + + | Address | [address] | | | [place] [address] | + + + | Home Phone [...] | | | | | [place] [address] | | + + + + + | Thania Mallory | ECON | [address] | | | | | [place] [address] | | + + + + + | Deidra Weldon | ECON | [address] | | | | | [place] | | | | | [address] | | + + + + + Care Team Providers + +------+ + | Care Collar Pointer Name | Role | Phone | [...] Evaluation | | | | [address] [place], | [place], [place] | | | | | [place] [address] | [address] | | | | | [phone] | | | +--------+ + + + [...] [place] | | | | | | [address] | | | | | | [phone] | | | | | | | | +--------+ + + + + documented as of this encounter Visit Diagnoses Not on filedocumented in this encounter"
--- OUTSIDE RECORDS SUMMARY | ~2019-07-14 | XMS | Encounter Summary ---
Demographics + + + | Address | [address] | | | [place] [address] | + + + | Home Phone [...] | | | | | [place] [address] | | + + + + + | Thania Mallory | ECON | [address] | | | | | [place] [address] | | + + + + + | Deidra Weldon | ECON | [address] | | | | | [place] | | | | | [address] | | + + + + + Care Team Providers + +------+ + | Care Displayer Merchandise Name | Role | Phone | + [...] | | | [address] | [facility] | | | | | Park [facility], | [place], [place] | | | | | [place] [address] | [address] | | | | | [phone] | | | +--------+ + + + [...] [facility] | | | | | | [address] | | | | | | [phone] | | | | | | | | +--------+ + + + + documented as of this encounter Visit Diagnoses Not on filedocumented in this encounter"
--- OUTSIDE RECORDS SUMMARY | ~2019-07-14 | XMS | Encounter Summary ---
Demographics + + + | Address | [address] | | | [place] [address] | + + + | Home Phone [...] | | | | | [place] [address] | | + + + + + | Thania Mallory | ECON | [address] | | | | | [place] [address] | | + + + + + | Deidra Weldon | ECON | [address] | | | | | [place] | | | | | [address] | | + + + + + Care Team Providers + +------+ + | Care Cardiac Rn Name | Role | Phone | [...] | [address]as | [facility] | referral) | | | | [address] [facility], | [place], [place] | | | | | [place] [address] | [address] | | | | | [phone] | | | +--------+ + + + [...] [facility] | | | | | | [address] | | | | | | [phone] | | | | | | | | +--------+ + + + + documented as of this encounter Visit Diagnoses Not on filedocumented in this encounter"
--- OUTSIDE RECORDS SUMMARY | ~2019-07-14 | XMS | Encounter Summary ---
Demographics + + + | Address | [address] | | | [place] [address] | + + + | Home Phone [...] | | | | | [place] [address] | | + + + + + | Thania Mallory | ECON | [address] | | | | | [place] [address] | | + + + + + | Deidra Weldon | ECON | [address] | | | | | [place] | | | | | [address] | | + + + + + Care Team Providers + +------+ + | Care Founder & Ceo Name | Role | Phone | [...] | | | | [address] [place] | [facility] | | | | | Park [facility], | [place], [place] | | | | | [place] [address] | [address] | | | | | [phone] | | | +--------+ + + + [...] [facility] | | | | | | [address] | | | | | | [phone] | | | | | | | | +--------+ + + + + documented as of this encounter Visit Diagnoses Not on filedocumented in this encounter"
--- OUTSIDE RECORDS SUMMARY | ~2019-07-14 | XMS | Encounter Summary ---
Demographics + + + | Address | [address] | | | [place] [address] | + + + | Home Phone [...] | | | | | [place] [address] | | + + + + + | Thania Mallory | ECON | [address] | | | | | [place] [address] | | + + + + + | Deidra Weldon | ECON | [address] | | | | | [place] | | | | | [address] | | + + + + + Care Team Providers + +------+ + | Care Combat Engineer Name | Role | Phone | [...] potential | | | | [address] [place], | [place], [place] | donor/checking in | | | | [place] [address] | [address] | with SW) | | | | [phone] | | | +--------+ + + + [...] [facility] | | | | | | [address] | | | | | | [phone] | | | | | | | | +--------+ + + + + documented as of this encounter Visit Diagnoses Not on filedocumented in this encounter"
--- OUTSIDE RECORDS SUMMARY | ~2019-07-14 | XMS | Encounter Summary ---
Demographics + + + | Address | [address] | | | [place] [address] | + + + | Home Phone [...] | | | | | [place] [address] | | + + + + + | Thania Mallory | ECON | [address] | | | | | [place] [address] | | + + + + + | Deidra Weldon | ECON | [address] | | | | | [place] | | | | | [address] | | + + + + + Care Team Providers + +------+ + | Care Senior Staff Psychologist Name | Role | Phone | [...] | | | | | Park [address]in [place], | [place], [place] | | | | | [place] [address] | [address] | | | | | [phone] | | | +--------+ + + + [...] Denise | | | | | | [place], [place] | | | | | | [address] | | | | | | [phone] | | | | | | | | +--------+ + + + + documented as of this encounter Visit Diagnoses + + | Diagnosis | + + | 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
--- OUTSIDE RECORDS SUMMARY | ~2019-07-14 | XMS | Encounter Summary ---
Demographics + + + | Address | [address] | | | [place] [address] | + + + | Home Phone [...] | Author | [facility] | | | and Josephana | + + + | Organization | [facility] | | | [...] Team Providers + +------+ + | Care Rouge Miller Name | Role | Phone | [...] | stage renal | [address] | [address] [place] [address] | | | | | disease) | Shun Griffin | Jaciel Gotti | | | | | ([facility]) | [address] | [address] [place] | | | | | Anemia in | [place], [place] | [place] | | | | | ESRD | [address] | [address] Phone: | | | | | (end-stage | Phone: | [phone] | | | | | renal | [phone] | Fax: | | | | | disease) | Fax: | [phone] | | | | | ([facility]) | [phone] | | | | | | Procedures [...] | | [address] | [place], [address] | (Primary Dx) | | | | [place], [place] | [place], [place] | | | | | [address] | [address] | | | | | [phone] | | | +--------+ + + + [...]
--- OUTSIDE RECORDS SUMMARY | ~2019-07-14 | XMS | Encounter Summary ---
Demographics + + + | Address | [address] | | | [place] [address] | + + + | Home Phone [...] | | | | | [place] [address] | | + + + + + | Thania Mallory | ECON | [address] | | | | | [place] [address] | | + + + + + | Deidra Weldon | ECON | [address] | | | | | [place] | | | | | [address] | | + + + + + Care Team Providers + +------+ + | Care Airport Location Manager Name | Role | Phone [...] Hoffmann | | | | | [address] [place] | [facility] | | | | | Park [facility], | [place], [place] | | | | | [place] [address] | [address] | | | | | [phone] | | | +--------+ + + + [...] Denise | | | | | | [place], [place] | | | | | | [address] | | | | | | [phone] | | | | | | | | +--------+ + + + + documented as of this encounter Visit Diagnoses Not on filedocumented in this encounter"
--- OUTSIDE RECORDS SUMMARY | ~2019-07-14 | XMS | Encounter Summary ---
Demographics + + + | Address | [address] | | | [place] [address] | + + + | Home Phone [...] | | | | | [place] [address] | | + + + + + | Thania Mallory | ECON | [address] | | | | | [place] [address] | | + + + + + | Deidra Weldon | ECON | [address] | | | | | [place] | | | | | [address] | | + + + + + Care Team Providers + +------+ + | Care Patient Monitor Name | Role | Phone | [...] Transplant Services | RN [address] [facility] | Update | | | | [address] [facility] | [facility] | | | | | Park [facility], | [place], [place] | | | | | [place] [address] | [address] | | | | | [phone] | | | +--------+ + + + [...] [facility] | | | | | | [address] | | | | | | [phone] | | | | | | | | +--------+ + + + + documented as of this encounter Visit Diagnoses Not on filedocumented in this encounter"
--- OUTSIDE RECORDS SUMMARY | ~2019-07-14 | XMS | Encounter Summary ---
Demographics + + + | Address | [address] | | | [place] [address] | + + + | Home Phone [...] | | | | | [place] [address] | | + + + + + | Thania Mallory | ECON | [address] | | | | | [place] [address] | | + + + + + | Deidra Weldon | ECON | [address] | | | | | [place] | | | | | [address] | | + + + + + Care Team Providers + +------+ + | Care Veterinary Science Teacher Name | Role | Phone [...] living/support | | | | [address] [place], | [place], [place] | situation) | | | | [place] [address] | [address] | | | | | [phone] | | | +--------+ + + + [...] Denise | | | | | | [place] | | | | | | [address] | | | | | | [phone] | | | | | | | | +--------+ + + + + documented as of this encounter Visit Diagnoses Not on filedocumented in this encounter"
--- OUTSIDE RECORDS SUMMARY | ~2019-07-14 | XMS | Encounter Summary ---
Demographics + + + | Address | [address] | | | [place] [address] | + + + | Home Phone [...] | | | | | [place] [address] | | + + + + + | Thania Mallory | ECON | [address] | | | | | [place] [address] | | + + + + + | Deidra Weldon | ECON | [address] | | | | | [place] | | | | | [address] | | + + + + + Care Team Providers + +------+ + | Care Keno Dealer Name | Role | Phone | [...] to | | | | [address] [place], | [place], [place] | [place] move | | | | [place] [address] | [address] | and new PAF as | | | | [phone] | | listed) | +--------+ + + [...] Denise | | | | | | [place], [place] | | | | | | [address] | | | | | | [phone] | | | | | | | | +--------+ + + + + documented as of this encounter Visit Diagnoses Not on filedocumented in this encounter"
--- OUTSIDE RECORDS SUMMARY | ~2019-07-14 | XMS | Encounter Summary ---
Demographics + + + | Address | [address] | | | [place] [address] | + + + | Home Phone [...] | | | | | [place] [address] | | + + + + + | Thania Mallory | ECON | [address] | | | | | [place] [address] | | + + + + + | Deidra Weldon | ECON | [address] | | | | | [place] | | | | | [address] | | + + + + + Care Team Providers + +------+ + | Care Manufacturing Weaver Name | Role | Phone | [...] Nephrology at | MD Emanuel [address] [facility] | | | | | Alexander | [facility] | | | | | [facility] | [place], [place] | | | | | [address] | [address] | | | | | Alexander | [phone] | | | | | [facility], | | | | | | [address] [place] [address] | | | | | | [place], [place] | | | | | | [address] | | | | | | [phone] | | | +--------+ + + + [...] Denise | | | | | | [place], [place] | | | | | | [address] | | | | | | [phone] | | | | | | | | +--------+ + + + + documented as of this encounter Visit Diagnoses Not on filedocumented in this encounter"
--- OUTSIDE RECORDS SUMMARY | ~2019-07-14 | XMS | Encounter Summary ---
Demographics + + + | Address | [address] | | | [place] [address] | + + + | Home Phone [...] | Author | [facility] | | | and Josephana | + + + | Organization | [facility] | [...] Team Providers + +------+ + | Care Perl Software Engineer Name | Role | Phone [...] | | stage renal | [address] | [address] [place] [address] | | | | | disease) | Shun Griffin | [place] | | | | | ([facility]) | [address] | [address] [place] | | | | | Anemia in | [place], [place] | [place], [place] | | | | | ESRD | [address] | [address] Phone: | | | | | (end-stage | Phone: | [phone] | | | | | renal | [phone] | Fax: | | | | | disease) | Fax: | [phone] | | | | | ([facility]) | [phone] | | | | | | Procedures | | | | | | | [place] ESRD | | | | | | [...] DO [address] | renal disease) ([facility]) | | | | [address] | [place], [address] | (Primary Dx) | | | | [place], [place] | [place], [place] | | | | | [address] | [address] | | | | | [phone] | | | +--------+ + + + [...] Will recheck her in 2 weeks. : [place] Fina Alonso MD, PhD documented in thi s encounter Plan of Treatment Not on filedocumented as of this encounter Visit Diagnoses + + | Diagnosis | + + | ESRD (end stage renal disease) (HCC) - Primary End stage renal disease | + + documented in this encounter"
--- OUTSIDE RECORDS SUMMARY | ~2019-07-14 | XMS | Encounter Summary ---
Demographics + + + | Address | [address] | | | [place] [address] | + + + | Home Phone [...] | Author | [facility] | | | and Josephana | + + + | Organization | [facility] | [...] | + + +---------+ + | Saundra Mallroy | ECON | Unknown | | + + +---------+ + Care Team Providers + +------+ + | Care Environmental Health Technologist Name | Role | Phone | [...] | | [address] | [facility] | | | | | [address] | [place] [address] | | | | | [phone] | [phone] | | | | | | | [...]
--- OUTSIDE RECORDS SUMMARY | ~2019-07-14 | XMS | Encounter Summary ---
Demographics + + + | Address | [address] | | | [place] [address] | + + + | Home Phone [...] + + | Author | [facility] | | | and Josephana | + + + | Organization | [facility] | | [...] Providers + +------+ + | Care Director Geophysical Laboratory Name | Role | Phone | + [...] NEPHROLOGY [address] | M, DO [address] [place] | | | | | [address] | [place], [address] | | | | | [place], [place] | [place], [place] | | | | | [address] | [address] | | | | | [phone] | | | +--------+ + + + [...] AM PSTOutside record: [facility] Sent to scanning. 9 :02 AM PSTdocumented in this encounter Plan of Treatment Not on filedocumented as of this encounter Visit Diagnoses Not on filedocumented in this encounter"
--- OUTSIDE RECORDS SUMMARY | ~2019-07-14 | XMS | Encounter Summary ---
Demographics + + + | Address | [address] | | | [place] [address] | + + + | Home Phone [...] | | | | | [place] [address] | | + + + + + | Deidra Weldon | ECON | [address] | | | | | [place] | | | | | [address] | | + + + + + Care Team Providers + +------+ + | Care Aboriginal Education Worker Coordinator Name | Role | Phone | [...] [facility] | | | | | [address] [facility], | [place], [place] | | | | | [place] [address] | [address] | | | | | [phone] | | | +--------+ + + + [...] Denise | | | | | | [place] | | | | | | [address] | | | | | | [phone] | | | | | | | | +--------+ + + + + documented as of this encounter Visit Diagnoses Not on filedocumented in this encounter"
--- OUTSIDE RECORDS SUMMARY | ~2019-07-14 | XMS | Encounter Summary ---
Demographics + + + | Address | [address] | | | [place] [address] | + + + | Home Phone [...] Author | [facility] | | | and Josephana | + + + | Organization | [facility] | | [...] Team Providers + +------+ + | Care Edge Finisher Name | Role | Phone | + +------+ + PCP | Unavailable | + +------+ + Encounter Details +--------+ + + + + | Date | Type | Department | Care Team | Description | +--------+ + + + + | 03/19/ | Hospital | [facility] | Bolivar Mcqueen MD | | | 2009 | Encounter | HOSPITAL EMERGENCY | | | | | | CENTER [address] | [address] [place], [place] | | | | | | [address] | | | | | | [phone] | | | +--------+ + + + [...]
--- OUTSIDE RECORDS SUMMARY | ~2019-07-14 | XMS | Encounter Summary ---
Demographics + + + | Address | [address] | | | [place] [address] | + + + | Home Phone [...] | | | | | [place] [address] | | + + + + + | Thania Mallory | ECON | [address] | | | | | [place] [address] | | + + + + + | Deidra Weldon | ECON | [address] | | | | | [place] | | | | | [address] | | + + + + + Care Team Providers + +------+ + | Care Data Entry Processor Name | Role | Phone | [...] | Park [facility], | [place], [place] | | | | | [place] [address] | [address] | | | | | [phone] | | | +--------+ + + + [...] Denise | | | | | | [place], [place] | | | | | | [address] | | | | | | [phone] | | | | | | | | +--------+ + + + + documented as of this encounter Visit Diagnoses Not on filedocumented in this encounter"
--- OUTSIDE RECORDS SUMMARY | ~2019-07-14 | XMS | Encounter Summary ---
Demographics + + + | Address | [address] | | | [place] [address] | + + + | Home Phone [...] | | | | | [place] [address] | | + + + + + | Deidra Weldon | ECON | [address] | | | | | [place] | | | | | [address] | | + + + + + Care Team Providers + +------+ + | Care Protective Services Case Worker Name | Role | Phone | [...] to | | | | [address] [place], | [place], [place] | contact pt re move | | | | [place] [address] | [address] | and new PAF as | | | | [phone] | | listed) | +--------+ + + [...] Denise | | | | | | [place], [place] | | | | | | [address] | | | | | | [phone] | | | | | | | | +--------+ + + + + documented as of this encounter Visit Diagnoses Not on filedocumented in this encounter"
--- OUTSIDE RECORDS SUMMARY | ~2019-07-14 | XMS | Encounter Summary ---
Demographics + + + | Address | [address] | | | [place] [address] | + + + | Home Phone [...] Author | [facility] | | | and Josephana | + + + | Organization | [facility] | | | [...] Team Providers + +------+ + | Care Rewriter Name | Role | Phone | + [...] | | stage renal | [address] | [address] [place] [address] | | | | | disease) | Shun Griffin | Jaciel Gotti | | | | | ([facility] | [address] | [address] [place] | | | | | Anemia in | [place], [place] | [place] | | | | | ESRD | [address] | [address] Phone: | | | | | (end-stage | Phone: | [phone] | | | | | renal | [phone] | Fax: | | | | | disease) | Fax: | [phone] | | | | | ([facility]) | [phone] | | | | | | Procedures [...] | | [address] | [place], [address] | (Primary Dx) | | | | [place], [place] | [place], [place] | | | | | [address] | [address] | | | | | [phone] | | | +--------+ + + + [...] week from records in [facility], per [facility] Nurse Elisabeth Portillo RN. Her BP, PO4, and PTH are consisently high. 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 Outpatient Prescriptions Marked as Taking for the 10/16/17 encounter (Off-Site Visit) with Caimlle Camp DO Medication Sig Dispense Refill albuterol [...] x per day. Has been counseled in [facility] regarding risks of calciphylaxis. 4. 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 5. Will recheck her in 2 weeks. : [place] Fina Alonso MD, PhD documented in thi s encounter Plan of Treatment Not on filedocumented as of this encounter Visit Diagnoses + + | Diagnosis | + + | ESRD (end stage renal disease) (HCC) - Primary End stage renal disease | + + documented in this encounter"
--- OUTSIDE RECORDS SUMMARY | 2019-07-14 10:38 | XMS ---
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 Care History Medical/Surgical 04/15/2019 [facility] Patient still non compliant.\T\nbsp; Has made attempts to stay for full dialysis treatment, but still having anxiety that prevents her from sticking it out.\T\nbsp;\T\nbsp; Next scheduled appointment is 04/23/[address] Lind. 03/13/2019 [facility] Patient has history of anxiety when going through 4 hours of dialysis.\T\nbsp; I asked her if she needed company on next dialysis visit and she said no.\T\ nbsp; Patient stated that she is working with PCP to find best Rx for anxiety. Next scheduled visit with PCP Gavin is not until 07/16/2019.\T\nbsp; Pt needs to make ED follow up visit. 11/29/2018 [facility] ED CASE MANAGEMENT CONSULT RECEIVED- CHW PROVIDED TO BASIL- CHW OF CLINIC FOR HIGH RISK FOLLOW UP. E.D. VISIT COUNT (12 MO.) [address] [place] [address] [facility] [place] TOTAL 22 NOTE: Visits indicate total known visits. ED/UCC VISIT TRACKING (12 MO.) 07/14/2019 10:36 [facility] [place] TYPE: Emergency COMPLAINT: - CHEST PAIN, SOB 04/18/2019 11:38 [facility] [place] TYPE: Emergency DIAGNOSES: - End stage renal disease - Dependence on renal dialysis - Patient's noncompliance with renal dialysis - Chondrocostal junction syndrome [Tietze] - Chest Pain - Fluid overload, unspecified - Shortness of Breath - Pleural effusion, not elsewhere classified 04/13/2019 18:34 [facility] [place] TYPE: Emergency COMPLAINT: - CHEST PAIN DIAGNOSES: - Chest pain, unspecified - Other chronic pain - Allergy status to narcotic agent status - Other halfway (current) drug therapy - Pleural effusion, not elsewhere classified - Patient's noncompliance with renal dialysis - Radiographic dye allergy status - Allergy status to other drugs, medicaments and biological sub - Dependence on renal dialysis - Heart failure, unspecified 03/12/2019 22:47 [facility] [place] TYPE: Emergency COMPLAINT: - CHEST PAIN/SOB DIAGNOSES: - Dependence on renal dialysis - Allergy status to narcotic agent status - 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 - Radiographic dye allergy status - Allergy status to other drugs, medicaments and biological sub - Chest pain, unspecified - Patient's other noncompliance with medication regimen - Personal history of nicotine dependence - Pleural effusion, not elsewhere classified - End stage renal disease 03/08/2019 02:36 [facility] [place] TYPE: Emergency COMPLAINT: - SOB DIAGNOSES: - Allergy status to narcotic agent status - Allergy status to other drugs, medicaments and biological sub - Dependence on renal dialysis - Radiographic dye allergy status - Other halfway (current) drug therapy - End stage renal disease - Hyperkalemia - Heart failure, unspecified - Heart failure, unspecified - Shortness of breath 02/17/2019 23:25 [facility] [place] TYPE: Emergency COMPLAINT: - SOB/RASH DIAGNOSES: - Chronic kidney disease, unspecified - Allergy status to other drugs, medicaments and biological sub - Allergy status to narcotic agent status - Radiographic dye allergy status - Other halfway (current) drug therapy - Cough - Fluid overload, unspecified [facility]2019 [facility] DIAGNOSES: - Shortness of breath - Shortness of Breath - Dependence on renal dialysis - End stage renal disease - Pleural effusion, not elsewhere classified 01/07/2019 01:31 [facility] TYPE: Emergency DIAGNOSES: - Dependence on renal dialysis - Hyperkalemia - End stage renal disease - Acute respiratory distress - Hypertension - High Potassium 01/06/2019 19:30 [facility] [place] TYPE: Emergency COMPLAINT: - CHEST PAIN, SOB DIAGNOSES: - Allergy status to narcotic agent status - 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 - Hyperkalemia - Dyspnea, unspecified - Dependence on renal dialysis - Shortness of breath - End stage renal disease - Allergy status to other drugs, medicaments and biological sub - Radiographic dye allergy status - Personal history of nicotine dependence 01/02/2019 11:17 [facility] [place] TYPE: Emergency COMPLAINT: - CHEST PAIN, SOB DIAGNOSES: - Chest pain, unspecified - Shortness of breath - Pleural effusion, not elsewhere classified 12/10/2018 22:01 [facility] TYPE: Emergency DIAGNOSES: - Personal history of other diseases of the digestive system - Pericardial effusion (noninflammatory) - 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 - Chronic right heart failure - End stage renal disease - Nonrheumatic tricuspid (valve) insufficiency - Left ventricular failure, unspecified - Sepsis, unspecified organism - Awaiting organ transplant status - Nonrheumatic mitral (valve) insufficiency - Acute and chronic respiratory failure with hypoxia - Other disorders of phosphorus metabolism - Dilated cardiomyopathy - Chest Pain - Other specified personal risk factors, not elsewhere classifi - Anemia in chronic kidney disease - Personal history of diseases of the blood and blood-forming o - Chronic pulmonary edema - Acute respiratory failure with hypoxia - Dependence on renal dialysis - Lobar pneumonia, unspecified organism - Hyperkalemia - Hypoxemia - Patient's noncompliance with other medical treatment and maria de jesus - Acute and chronic respiratory failure with hypercapnia - Fluid overload, unspecified - Other ascites 12/09/2018 23:16 [facility] [place] TYPE: Emergency COMPLAINT: - CHEST PAIN, SOB DIAGNOSES: - Shortness of breath - Allergy status to narcotic agent status - Radiographic dye allergy status - Chronic pulmonary edema - Personal history of nicotine dependence - Other halfway (current) drug therapy 11/28/2018 09:12 [facility] [place] TYPE: Emergency COMPLAINT: - SOB, BLOOD PRESSURE PROBLEM DIAGNOSES: - Allergy status to narcotic agent status - Allergy status to other drugs, medicaments and biological sub - Chronic kidney disease, unspecified - Radiographic dye allergy status - Shortness of breath - Pleural effusion, not elsewhere classified - 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 - Personal history of nicotine dependence - Heart failure, unspecified 11/27/2018 21:50 [facility] [place] TYPE: Emergency COMPLAINT: - SOB, POSS HIGH BLOOD PRESSURE DIAGNOSES: - Pleural effusion, not elsewhere classified - Dependence on renal dialysis - Allergy status to narcotic agent status - Patient's noncompliance with other medical treatment and maria de jesus - Allergy status to other drugs, medicaments and biological sub - Radiographic dye allergy status - Other halfway (current) drug therapy - Heart failure, unspecified - Allergy status to analgesic agent status - Shortness of breath - Hypertensive heart disease with heart failure 11/06/2018 08:24 [facility] [place] TYPE: Emergency COMPLAINT: - CHEST PAIN DIAGNOSES: - 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 - Allergy status to analgesic agent status - Pleural effusion, not elsewhere classified - Dependence on renal dialysis - Radiographic dye allergy status - Other chest pain - Pericardial effusion (noninflammatory) - Allergy status to narcotic agent status - Acute respiratory failure with hypoxia - Chronic pulmonary edema - Allergy status to other drugs, medicaments and biological sub 10/17/2018 03:19 [facility] TYPE: Emergency DIAGNOSES: - Dependence on renal dialysis - Pleural effusion, not elsewhere classified - End stage renal disease - Shortness of breath - Shortness of Breath 10/16/2018 23:10 [place] [place] TYPE: Emergency COMPLAINT: - EXCESS FLUID DIAGNOSES: - Shortness of breath - Thrombocytopenia, unspecified - Allergy status to other drugs, medicaments and biological sub - Allergy status to narcotic agent status - Other pulmonary embolism without acute cor pulmonale - Acute kidney failure, unspecified - Patient's other noncompliance with medication regimen - Chronic kidney disease, unspecified - Radiographic dye allergy status - Dependence on renal dialysis - 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 - Hypertensive chronic kidney disease with stage 1 through stag 08/20/2018 13:08 [facility] [place] TYPE: Emergency COMPLAINT: - CHEST PAIN, SOB DIAGNOSES: - Dependence on renal dialysis - Chronic kidney disease, unspecified - Allergy status to other drugs, medicaments and biological sub - Chronic pulmonary edema - Other halfway (current) drug therapy - Allergy status to narcotic agent status - Dyspnea, unspecified - Radiographic dye allergy status 08/13/2018 10:25 [facility] [place] TYPE: Emergency COMPLAINT: - CHEST PRESSURE DIAGNOSES: - Allergy status to other drugs, medicaments and biological sub - Pleural effusion, not elsewhere classified - End stage renal disease - Allergy status to narcotic agent status - Hyperkalemia - Other specified abnormalities of plasma proteins - Other halfway (current) drug therapy - Radiographic dye allergy status - Dependence on renal dialysis - Chest pain, unspecified 08[facility]13/2018 00[facility]00 [facility] Plus 2 More Visits INPATIENT VISIT TRACKING (12 MO.) 04/18/2019 11:38 [facility] DIAGNOSES: - Fluid overload, unspecified - End stage renal disease - Patient's noncompliance with renal dialysis - Other specified personal risk factors, not elsewhere classifi - Essential (primary) hypertension - Other disorders of phosphorus metabolism - Dependence on renal dialysis - Pleural effusion, not elsewhere classified - Hyperkalemia - Acute on chronic combined systolic (congestive) and diastolic - Chondrocostal junction syndrome [Tietze] - Anemia in chronic kidney disease - 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 01/23/2019 22:10 [facility] TYPE: Internal Medicine DIAGNOSES: - Pleural effusion, not elsewhere classified - Other disorders of plasma-protein metabolism, not elsewhere c - End stage renal disease - Shortness of breath - Patient's noncompliance with renal dialysis - Other disorders of phosphorus metabolism - Acute respiratory distress - Patient's noncompliance with other medical treatment and maria de jesus - Anemia in chronic kidney disease - Other specified personal risk factors, not elsewhere classifi - Dependence on renal dialysis 12/10/2018 22:01 [facility] TYPE: Inpatient DIAGNOSES: - Other ascites - Acute respiratory failure with hypoxia - Lobar pneumonia, unspecified organism - Other disorders of phosphorus metabolism - Nonrheumatic tricuspid (valve) insufficiency - Personal history of other diseases of the digestive system - Hypoxemia - Personal history of diseases of the blood and blood-forming o - Patient's noncompliance with other medical treatment and maria de jesus - Awaiting organ transplant status - Hyperkalemia - Other specified personal risk factors, not elsewhere classifi - Chronic right heart failure - Sepsis, unspecified organism - Dilated cardiomyopathy - Fluid overload, unspecified - 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 - End stage renal disease - Acute and chronic respiratory failure with hypercapnia - Left ventricular failure, unspecified - Pericardial effusion (noninflammatory) - Dependence on renal dialysis - Anemia in chronic kidney disease - Nonrheumatic mitral (valve) insufficiency - Acute and chronic respiratory failure with hypoxia - Chronic pulmonary edema 11/06/2018 15:10 [facility] TYPE: Internal Medicine DIAGNOSES: - Acute respiratory failure with hypoxia - Pleural effusion, not elsewhere classified - Left ventricular failure, unspecified - Anemia in chronic kidney disease - Pulmonary hypertension, unspecified - Pericardial effusion (noninflammatory) - Dependence on renal dialysis - Chronic right heart failure - Patient's noncompliance with other medical treatment and maria de jesus - 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 - Other specified personal risk factors, not elsewhere classifi - Abnormal levels of other serum enzymes - End stage renal disease - Hyperkalemia - Dilated cardiomyopathy 10/17/2018 03:19 [facility] [place]: General Medicine DIAGNOSES: - Shortness of breath - Pleural effusion, not elsewhere classified - End stage renal disease - Dependence on renal dialysis 08/20/2018 17:21 [facility] [place] TYPE: General Medicine DIAGNOSES: - Pleural Effusion - Chronic pulmonary edema 07/18/2018 22:44 [facility] [place] TYPE: General Medicine DIAGNOSES: - Hypoxemia - End stage renal disease - Pulmonary hypertension, unspecified - Chronic right heart failure - Personal history of other diseases of urinary system - Fever, unspecified - Pleural effusion, not elsewhere classified - Anemia in chronic kidney disease - Dependence on renal dialysis [email or web address]
[2019-07-14] MEDS ORDERED: CARVEDILOL12.5 MG PO (10:53)
== END 2019-07-14 14:52 | disposition short-term general hospital (02) ==
LOC: ED 10:35
DX: J90 Pleural effusion, not elsewhere classified (principal); F41.9 Anxiety disorder, unspecified; E87.70 Fluid overload, unspecified; Z91.15 Patient's noncompliance with renal dialysis; R09.02 Hypoxemia; N18.9 Chronic kidney disease, unspecified; Z91.041 Radiographic dye allergy status; Z88.6 Allergy status to analgesic agent; Z88.8 Allergy status to other drugs, medicaments and biological substances; Z79.899 Other long term (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
CPT/HCPCS: 71045; 80053; 85025; 96374; 99285-25; J2550

== ENCOUNTER 2019-09-22 20:43 | Emergency (ER) | payer MEDICARE, OTHER ==
[~2019-09-22] VITALS: Ht 170.2 cm; Wt 69.0 kg
[~2019-09-22 20:43] MED LIST changes: +CARVEDILOL12.5 MG PO
--- OUTSIDE RECORDS SUMMARY | 2019-09-22 20:46 | XMS ---
PreManage Notification: CONOR LOUISE Security [employer] Events No recent Security Events currently on file CRITERIA MET - [facility] - Has Care Guidelines - PDMP CARE PROVIDERS TIEN NICHOLSON Internal Medicine 05/28/2018-Current PHONE: Unknown Karena has no Care Guidelines for this patient. Care History Medical/Surgical 04/15/2019 [facility] Patient still non compliant.\T\nbsp; Has made attempts to stay for full dialysis treatment, but still having anxiety that prevents her from sticking it out.\T\nbsp;\T\nbsp; Next scheduled appointment is 04/23/[address] Lind. 03/13/2019 [facility] Patient has history of anxiety when going through 4 hours of dialysis.\T\nbsp; I asked her if she needed company on next dialysis visit and she said no.\T\ nbsp; Patient stated that she is working with PCP to find best Rx for anxiety. Next scheduled visit with PCP Gavin is not until 07/16/2019.\T\nbsp; Pt needs to make ED follow up visit. 11/29/2018 [facility] ED CASE MANAGEMENT CONSULT RECEIVED- CHW PROVIDED TO BASIL- CHW OF CLINIC FOR HIGH RISK FOLLOW UP. E.D. VISIT COUNT (12 MO.) [address] [place] [address] AM[facility] [place] TOTAL 19 NOTE: Visits indicate total known visits. ED/UCC VISIT TRACKING (12 MO.) 09/22/2019 20:44 [facility] [place] TYPE: Emergency COMPLAINT: - STABBING RIB PAIN 07/14/2019 15:26 [facility] TYPE: Emergency DIAGNOSES: - Medical Problem (Major) - Dependence on renal dialysis - Acute pulmonary edema - HD - Shortness of breath - End stage renal disease 07/14/2019 10:36 [facility] [place] TYPE: Emergency COMPLAINT: - CHEST PAIN, SOB DIAGNOSES: - Anxiety disorder, unspecified - Allergy status to analgesic agent status - Other half-way (current) drug therapy - Pleural effusion, not elsewhere classified - Shortness of breath - Patient's noncompliance with renal dialysis - Hypoxemia - Radiographic dye allergy status - Allergy status to other drugs, medicaments and biological sub - Fluid overload, unspecified - Chronic kidney disease, unspecified 04/18/2019 11:38 [facility] TYPE: Emergency DIAGNOSES: - End stage renal [...] status to narcotic agent status - Other half-way (current) drug therapy - Pleural effusion, not [...] status to narcotic agent status - Other half-way (current) drug therapy - Radiographic dye allergy [...] - Radiographic dye allergy status - Other long term care social worker [...] - Radiographic dye allergy status - Other long term care social worker (current) drug therapy - Cough - Fluid overload, unspecified 01/23/2019 22:10 [facility] TYPE: Emergency DIAGNOSES: - Shortness of breath - Shortness of Breath - Dependence on renal dialysis - End stage renal disease - Pleural effusion, not elsewhere classified 01/07/2019 01:31 [facility] TYPE: Emergency DIAGNOSES: - Dependence on renal dialysis - Hyperkalemia - End stage renal disease - Acute respiratory distress - Hypertension - High Potassium 01/06/2019 19:30 [facility] TYPE: Emergency COMPLAINT: - CHEST PAIN, SOB DIAGNOSES: - Allergy status to narcotic agent status - Other half-way (current) drug therapy - Hyperkalemia - Dyspnea, [...] effusion, not elsewhere classified 12/10/2018 22:01 [facility] TYPE: Emergency DIAGNOSES: - Personal [...] Personal history of nicotine dependence - Other half-way (current) drug therapy 11/28/2018 09:12 [facility] [place] TYPE: Emergency COMPLAINT: - SOB, BLOOD PRESSURE PROBLEM DIAGNOSES: - Allergy status to narcotic agent status - Allergy status to other drugs, medicaments and biological sub - Chronic kidney disease, unspecified - Radiographic dye allergy status - Shortness of breath - Pleural effusion, not elsewhere classified - Other long term care social worker (current) drug therapy - Personal history of [...] - Radiographic dye allergy status - Other half-way (current) drug therapy - Heart failure, unspecified - Allergy status to analgesic agent status - Shortness of breath - Hypertensive heart disease with heart failure 11/06/2018 08:24 [facility] [place] TYPE: Emergency COMPLAINT: - CHEST PAIN DIAGNOSES: - Other long term care social worker (current) drug therapy - Allergy status to analgesic agent status - Pleural effusion, not elsewhere classified - Dependence on renal dialysis - Radiographic dye allergy status - Other chest pain - Pericardial effusion (noninflammatory) - Allergy status to narcotic agent status - Acute respiratory failure with hypoxia - Chronic pulmonary edema - Allergy status to other drugs, medicaments and biological sub 10/17/2018 03:19 [facility] TYPE: Emergency DIAGNOSES: - Dependence [...] - Dependence on renal dialysis - Other long term care social worker (current) drug therapy - Hypertensive chronic kidney disease with stage 1 through stag INPATIENT VISIT TRACKING (12 MO.) 07/14/2019 15:26 [facility] TYPE: Internal Medicine DIAGNOSES: - Pleural effusion, not elsewhere classified - End stage renal disease - Acute pulmonary edema - 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 - Acute and chronic respiratory failure with hypoxia - Acute on chronic combined systolic (congestive) and diastolic - Shortness of breath - Other specified personal risk factors, not elsewhere classifi - Patient's noncompliance with other medical treatment and maria de jesus - Dependence on renal dialysis 04/18/2019 11:38 [facility] TYPE: Internal Medicine DIAGNOSES: - Fluid overload, [...] systolic (congestive) and diastolic (congest [facility]23[facility]2019 [facility] DIAGNOSES: - Pleural effusion, [...] - Dependence on renal dialysis 12/10/2018 22:01 [facility]: [facility] DIAGNOSES: - Other ascites [...] hypoxia - Chronic pulmonary edema 11/06/2018 15:10 [facility] TYPE: Internal Medicine DIAGNOSES: - [...] - Hyperkalemia - Dilated cardiomyopathy 10/17/2018 03:19 [facility] TYPE: General Medicine DIAGNOSES: - Shortness of breath - Pleural effusion, not elsewhere classified - End stage renal disease - Dependence on renal dialysis [email or web address]
== END 2019-09-22 22:57 | disposition home or self-care (01) ==
LOC: ED 20:43
DX: R07.89 Other chest pain (principal); Z91.041 Radiographic dye allergy status; Z88.8 Allergy status to other drugs, medicaments and biological substances; Z79.899 Other long term (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
CPT/HCPCS: 71101; 99284-25

== ENCOUNTER 2019-12-21 22:44 | Emergency (ER) | payer MEDICARE, OTHER ==
[~2019-12-21] VITALS: Ht 170.2 cm; Wt 68.9 kg
--- OUTSIDE RECORDS SUMMARY | ~2019-12-21 | XMS | Encounter Summary ---
Demographics + + + | Address | [address] | | | [place] [address] | + + + | Home Phone | | + + + | Preferred Language | Unknown | + + + | Marital Status | Single | + + + | Gnosticism Affiliation | Unknown | + + + [...] | | | | | [place] [address] | | + + + + + | Thania Mallory | ECON | [address] | | | | | [place] [address] | | + + + + + | Deidra Weldon | ECON | [address] | | | | | [place] | | | | | [address] | | + + + + + Care Team Providers + +------+ + | Care Spinning Bath Patroller Name | Role | Phone | + +------+ + | Shahid Camargo MD | PCP | | + +------+ + Encounter Details +--------+ + + + + | Date | Type | Department | Care Team | Description | +--------+ + + + + | 12/20/ | Hospital | Radiology at [facility] | | | | 2012 | Encounter | [address] | | | | | | [place] | | | | | | [facility], | | | | | | [address] [place] [address] | | | | | | [place], [place] | | | | | | [address] | | | | | | [phone] | | | +--------+ + + + [...] Denise | | | | | | [place], [place] | | | | | | [address] | | | | | | [phone] | | | | | | | [...] | e | 9:27 AM | MEDICARE [id number] | procedure are in the | | [...]
--- OUTSIDE RECORDS SUMMARY | ~2019-12-21 | XMS | Encounter Summary ---
Demographics + + + | Address | [address] | | | [place] [address] | + + + | Home Phone [...] Author + + + | Author | [facility] | | | and [place] | + + + | Organization | [facility] | | | and [place] | + + + | Address | [...] Team Providers + +------+ + | Care Wooden Barrel Mechanic Name | Role | Phone | + +------+ + PCP | Unavailable | + +------+ + Reason for Visit Evaluate & Treat (Routine) +--------+--------+ + + + + | Status | Reason | Specialty | Diagnoses / | Referred By | Referred To | | | | | Procedures | Contact | Contact | +--------+--------+ + + + + | Closed | | Nephrology | Diagnoses | Rufino | Jessieemel, | | | | | ESRD (end | Sudhakar D, | Jorje Obrien DO | | | | | stage renal | [address] | [address] | | | | | disease) | [address] | [address] | | | | | ([facility]) | [address] | [address] | | | | | Anemia in | [place], [place] | [place], | | | | | ESRD | [address] | [place] [address] | | | | | (end-stage | Phone: | Phone: | | | | | renal | [phone] | [phone] | | | | | disease) | Fax: | Fax: | | | | | ([facility]) | [phone] | [phone] | | | | | Procedures | | | | | | | MD OFFICE | | | | | | | OUTPATIENT | | | | | | | VISIT 25 | | | | | | | MINUTES | | | +--------+--------+ + + + + Encounter Details +--------+ + + + + | Date | Type | Department | Care Team | Description | +--------+ + + + + | 01/24/ | Off-Site | [facility] [place] | Jorje Camp | ESRD (end stage | | 2016 | Visit | NEPHROLOGY [address] | M, DO [address] | renal disease) ([facility]) | | | | [address] | [address] [place] | (Primary Dx) | | | | [place], [place] | [place] [address] | | | | | [address] | [phone] | | | | | [phone] | | | +--------+ + + + [...] + + + | Blood Pressure | 130/74 | 01/25/2016 12:09 PM | | | | | PST | | + + + + + | Pulse | - | - | | + + + + + | Temperature | 37.5 C (99.5 F) | 01/25/2016 12:09 PM | | | | | PST | [...] + + + + | Weight | - | - | | + + + + + | Height | - | - | | + + + + + | Body Mass Index | - | - | | + + + + + documented in this encounter Progress Notes Jorje Camp DO - 01/25/2016 12:15 PM PST Subjective: DIALYSIS NOTE Patient ID: Dara Weldon is a 20 y.o. female. 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 She also has anemia secondary to CKD, SHPTH, centripetal obesity . She has been having tr ouble with unexplained absences, recently, unfortunately up to one missed tx per week. I h ave discussed with Dara, at length, that this could be hazardous in terms of clearance, es pecially her PO4 clearance which has sharply trended upward recently. She does appear apath etic about her renal diet, education, and currently is unemployed with no plans for a vocati on, or any form of educational program. Outpatient Prescriptions Marked as Taking for the 01/25/16 encounter (Off-Site Visit) with Jorje M Stroemel, DO Medication Sig Dispense Refill albuterol 90 mcg/puff inhaler Inhale 2 puffs into the lungs every 6 hours as needed for Wheezing. 1 Inhaler 11 aspirin 81 MG tablet Take 1 tablet by mouth Daily. cinacalcet (SENSIPAR) 90 MG tablet Take 1 tablet by mouth Daily (with dinner). 90 table t 4 clopidogrel (PLAVIX) 75 mg tablet Take 1 tablet by mouth Daily. 30 tablet 11 doxercalciferol (HECTOROL) 2 mcg/mL injection Inject 1 mcg into the vein Three times a week. Per dialysis clinic protocol [DISCONTINUED] epoetin jenna (EPOGEN, PROCRIT) 10,000 units/mL injection --On Hold. 1 mL iron sucrose (VENOFER) 20 mg/mL injection Inject 2.5 mLs into the vein Once a week. renal multivitamin (DIALYVITE, VOL-CARE) TABS Take 1 tablet by mouth every evening. 90 tablet 4 sertraline (ZOLOFT) 25 mg tablet Take 1 tablet by mouth Daily. 30 tablet 11 sevelamer carbonate (RENVELA) 800 mg tablet Take 4 tablets by mouth with meals and 3 ta blets with snacks 630 tablet 4 traMADol (ULTRAM) 50 mg tablet Take 50 mg by mouth every 12 hours as needed for Pain. Allergies Allergen Reactions Adhesive & Tape Rash Certain tapes Morphine Itching and Rash Objective: BP 130/74 mmHg | Temp(Src) 37.5 C (99.5 F) EDW 98 kg? Physical Exam Heart: Regular rate and rhythm with no S3, S4, murmur or rub. Lungs: CTA bilaterally. No rales or wheezes. Abdomen: Soft, obese, nontender, normoactive bowel sounds, no CVA tenderness.. Extremities: No clubbing, cyanosis, or edema. QB 400 at left arm AVF. LAB: BUN 81, Cr 13.8, K+ 4.3, HCO3 17, Ca++ 8.9, PO4 10.0, PTH 1275, Alb 3.7, Hb 10 .3, TSat. = 48 %, Ferritin 1132, eKT/V = 1.89. Assessment: 1. ESRD--her adequacy is stable, however, she does not attend all prescribed bed txs, hist orically in past 3 mo. This may have culminated in some of the worsening PO4 control? 2. Hypertension--good control. 3. SHPTH--hyperphosphatemia is poorly controlled. She admits to eating a moderate amount of milk, cheese and daily products. I encouraged her to take the Renvela exactly AC and HS as well. 4. Nutrition-- this may be 2' to food choices, and potentially under dialysis due to skip ped txs? 6. Anemia-- she does appear to respond to EPO, and the [facility]ita algorithm. Her iron store s appear adequate at this point. 7. Centripetal obesity--she is having some wt. loss. 8. 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 9. Transplantation--my gut feeling is that she lacks maturity to independently manage her health care problems. She would be at significant risk for allograft loss, as unfortunately she appears somewhat immature for her age. Additionally, her family/social support is subo ptimal to nonexistent. Plan: 1. The team at with Dara and thoroughly reviewed features of a <1000 mg PO4 diet, inclu ding portions. Additionally that Renvela can treat hyperphosphatemia if timed exactly AC&HS . End organ damage was discussed with her at length. 2. Will recheck her calcium, PO4 in 2 weeks. 3. I had a very lengthy discussion with Dara that Miss treatments culminate in missed me ds, and decreased fluid removal, decrease toxin removal and puts her at risk for increased m orbidity mortality.. Unfortunately she does not have a lucid explanation why she does not at tend all of her prescribed treatments. She is not working at this point. 4. I have discussed with Dara about seeing a counselor to help her cope with some of her life problems. 5. Will recheck her in 2 weeks. : Jamil Joy M.D., Pediatric Nephrology, [facility] documented in th is encounter Plan of Treatment Not on filedocumented as of this encounter Visit Diagnoses + + | Diagnosis | + + | ESRD (end stage renal disease) (HCC) - Primary End stage renal disease | + + documented in this encounter"
--- OUTSIDE RECORDS SUMMARY | ~2019-12-21 | XMS | Encounter Summary ---
Demographics + + + | Address | [address] | | | [place] [address] | + + + | Home Phone [...] + + + | Author | [facility] | | | and [place] | + + + | Organization | [facility] | | | and [...] Team Providers + +------+ + | Care Fringing Machine Operator Name | Role | Phone | + +------+ + | Jonathan Alonso MD | PCP | | + +------+ + Encounter Details +--------+ + + + + | Date | Type | Department | Care Team | Description | +--------+ + + + + | 08/13/ | Emergency | [facility] | | | | 2018 | | [facility] | | | | | | [facility] | | | | | | [address] | | | | | | [place], [place] | | | | | | [address] | | | | | | [phone] | | | +--------+ + + + [...] at Time of Discharge + + + +---------+ + + | Medication | Sig | Dispensed | Refills | Start | End Date | | | | | | Date | | + + + +---------+ + + | doxercalciferol | Inject 0.5 mLs into | | 0 | 12//20 | | | (HECTOROL) 2 mcg/mL | the vein Three times | | | 18 | | | injectionIndications | a week. Per | | | | | | : ESRD (end stage | dialysis clinic | | | | | | renal disease) (HCC) | protocol | | | | | + + + +---------+ + + | epoetin jenna | Inject 0.4 mLs | | 0 | 07/04/19 | | | (EPOGEN) 20,000 | (8,000 Units total) | | | 14 | | | units/mL injection | into the skin every | | | | | | | 7 days. | | | | | + + + +---------+ + + | etelcalcetide | Inject 2.5 mg into | | 0 | | | | (PARSABIV) 2.5 | the vein Three times | | | | | | mg/0.5 mL injection | a week. | | | | | + + + +---------+ + + | iron sucrose | Inject 2.5 mLs into | | 0 | 09/13/19 | | | (VENOFER) 20 mg/mL | the vein Once a | | | 15 | | | injection | week. | | | | | + + + +---------+ + + | albuterol 90 | Inhale 2 puffs into | 1 | 11 | 09/20/19 | | | mcg/puff inhaler | the lungs every 6 | Inhaler | | 17 | 9 | | | hours as needed for | | | | | | | Wheezing. | | | | | + + + +---------+ + + | cinacalcet | Take 30 mg by mouth | | 0 | 07/04/19 | | | (SENSIPAR) 30 mg | every other day. | | | 14 | 9 | | tablet | | | | | | + + + +---------+ + + | clopidogrel | Take 1 tablet by | 30 | 11 | 09/20/19 | | | (PLAVIX) 75 mg | mouth Daily. | tablet | | 17 | 9 | | tablet | | | | | | + + + +---------+ + + | epoetin jenna | Inject 3,000 Units | | 0 | | | | (EPOGEN,PROCRIT) | under the skin Three | | | | 9 | | 3,000 units/mL | times a week. | | | | | | injection | | | | | | + + + +---------+ + + | hydrOXYzine | Take 1 tablet by | 60 | 1 | 12/27/19 | | | (ATARAX) 50 MG | mouth nightly as | tablet | | 17 | 9 | | tablet | needed for Itching. | | | | | + + + +---------+ + + | losartan (COZAAR) | Take 1 tablet by | 90 | 3 | 04/09/19 | | | 100 MG tablet | mouth Daily. | tablet | | 19 | 9 | + + + +---------+ + + | metoprolol | Take 1 tablet by | | 0 | 07/25/19 | | | succinate | mouth daily. | | | 19 | 9 | | (TOPROL-XL) 50 mg 24 | | | | | | | hr tablet | | | | | | + + + +---------+ + + | norethindrone | Take 1 tablet by | 28 | 11 | 09/20/19 | | | (MICRONOR) 0.35 MG | mouth Daily. | tablet | | 17 | 9 | | tablet | | | | | | + + + +---------+ + + | 27-0.8 mg | Take 1 tablet by | 30 | 11 | 09/20/19 | | | multivitamin tablet | mouth Daily. | tablet | | 17 | 9 | + + + +---------+ + + | promethazine | Take 1 tablet by | | 0 | 07/25/19 | | | (PHENERGAN) 25 mg | mouth every 6 (six) | | | 19 | 0 | | tablet | hours as needed for | | | | | | | Nausea or Vomiting | | | | | | | (non-resposive to | | | | | | | zofran). | | | | | + + + +---------+ + + | raNITIdine | Take 1 capsule by | 30 | 11 | 04/10/19 | | | (ZANTAC) 300 MG | mouth every evening. | capsule | | 18 | 9 | | capsule | | | | | | + + + +---------+ + + | sevelamer | Take 2 tablets by | | 0 | 06/02/19 | | | carbonate (RENVELA) | mouth 3 (three) | | | 19 | 0 | | 800 mg tablet | times daily with | | | | | | | meals and 2 tablet | | | | | | | with snacks twice | | | | | | | daily | | | | | + + + +---------+ + + | sevelamer | Take 4 tablets by | 450 | 11 | 10/11/19 | | | carbonate (RENVELA) | mouth with meals and | tablet | | 18 | 9 | | 800 mg tablet | 3 tablets with | | | | | | | snacks | | | | | + + + +---------+ + + | valsartan (DIOVAN) | Take 1 tablet by | | 0 | 06/15/19 | | | 40 mg tablet | mouth daily. | | | 19 | 9 | + + + +---------+ + + documented as of this encounter Plan of Treatment Not on filedocumented as of this encounter Visit Diagnoses Not on filedocumented in this encounter"
--- OUTSIDE RECORDS SUMMARY | ~2019-12-21 | XMS | Encounter Summary ---
Demographics + + + | Address | [address] | | | [place] [address] | + + + | Home Phone [...] Author + + + | Author | [facility] | + + + | Organization | [facility] | + + + | Address | Unknown | + + + | Phone | Unavailable | + + + Support + + + + + | Name | Relationship | Address | Phone | + + + + + | Cory Weldon | ECON | [address] | | | | | [place] [address] | | + + + + + | Thania Mallory | ECON | [address] | | | | | [place] [address] | | + + + + + | Deidra Weldon | ECON | [address] | | | | | [place] | | | | | [address] | | + + + + + Care Team Providers + +------+ + | Care Consumer Loan Manager Name | Role | Phone | [...] | | | [phone] | [facility] | | | | | [place], | [place], [place] | | | | | [place] [address] | [address] | | | | | [phone] | | | +--------+ + + + [...] Denise | | | | | | [place], [place] | | | | | | [address] | | | | | | [phone] | | | | | | | | +--------+ + + + + documented as of this encounter Visit Diagnoses Not on filedocumented in this encounter"
--- OUTSIDE RECORDS SUMMARY | ~2019-12-21 | XMS | Encounter Summary ---
Demographics + + + | Address | [address] | | | [place] [address] | + + + | Home Phone [...] Author + + + | Author | [facility] | | | and [place] | + + + | Organization | [facility] | | | and [place] | + + + | Address | Unknown | + + + | Phone | Unavailable | + + + Support + + +---------+ + | Name | Relationship | Address | Phone | + + +---------+ + | Thania Mallory | ECON | Unknown | | + + +---------+ + | Saundra Shawnee | ECON | Unknown | | + + +---------+ + Care Team Providers + +------+ + | Care Risk Control Director Name | Role | Phone | + +------+ + PCP | Unavailable | + +------+ + Encounter Details +--------+ + + + + | Date | Type | Department | Care Team | Description | +--------+ + + + + | 10/28/ | Hospital | [facility] | Conversion | ESRD (end stage | | 2015 | Encounter | [facility]ENTER [facility] | Transaction, | renal disease) (HCC) | | | | [address] | Provider Unknown | | | | | [place], [place] | [phone] | | | | | [address] | | | | | | [phone] | Colten Hutchins MD | | | | | | [address] | | | | | | [place], [place] | | | | | | [address] | | | | | | | [...] puffs into | 1 | 11 | 09/13/19 | | | mcg/puff inhaler | the lungs every 6 | Inhaler | | 15 | 6 | | | hours as needed for [...] +---------+ + + | cinacalcet | Take 1 tablet by | 90 | 4 | 07/22/19 | | | (SENSIPAR) 90 MG | mouth Daily (with | tablet | | 15 | 5 | | tablet | dinner). | | | | | + + + +---------+ + + | doxercalciferol | Inject 1 mL into the | | 0 | 09/13/19 | | | (HECTOROL) 2 mcg/mL | vein Three times a | | | 15 | 5 | | injection | week. | | | | | + + + +---------+ + + | epoetin jenna | Inject 1,000 Units | | 0 | | | | (EPOGEN, PROCRIT) | into the vein Every | | | | 5 | | 10,000 units/mL | 30 days. | | | | | | injection | | | | | | + + + +---------+ + + | renal multivitamin | Take 1 tablet by | 90 | 4 | 04/28/19 | | | (DIALYVITE, | mouth every evening. | tablet | | 15 | 5 | | VOL-CARE) TABS | | | | | | + + + +---------+ + + | sevelamer | Take 4 tablets by | 630 | 4 | 07/22/19 | | | carbonate (RENVELA) | mouth with meals and | tablet | | 15 | 6 | | 800 mg tablet | 3 tablets with | | | | | | | snacks | | | | | + + + +---------+ + + documented as of this encounter Consult Lawrence Reid NP - 10/28/2014 10:57 AM PDT Consult* by KRISHNA Mcclain at 10/28/14 1054 Author: KRISHNA Mcclain Service: Interventional Radiology Author Type: Advanced R egistered Nurse Practitioner Filed: 10/28/14 3955 Date of Service: 10/28/14 1057 Status: Attested Grounds Supervisor: KRISHNA Mcclain (Advanced Registered Nurse Practitioner) Cosigner: Colten Hutchins MD PhD at 10/28/14 1153 Attestation signed by Colten Hutchins MD PhD at 10/28/14 1158 I have independently performed history and physical then reviewed the notes, assessments, a nd/or procedures performed by KRISHNA Hurtado, I do not concur with her/his documentatio n of Dara Louise. Colten Hutchins MD, PhD, [facility] Interventional Radiology and Vascular Medicine Office Vascular & Interventional Radiology Consult Note Patient Name: Dara Louise Date of : 1995 Requesting Provider: Jorje Camp MD - Nephrology Consulting Provider: Colten Hutchins MD, PhD Reason for Referral and Chief Complaint: Decreased function to left upper arm AV fistula History of Present Illness: Dara Louise is a 19 y.o. female. IR was asked to see Dara by Dr. Camp for evaluat ion of her left upper arm AV fistula. Dara is a 19-year-old female with history of hypertension, Henoch Schonlein Purpura, and end-stage renal disease who is currently receiving hemodialysis 3 days per week, Monday, , and Monday. Patient had a left brachiocephalic AV fistula created on 04/08/[address] Sujit romero at [facility]. Patient reports over the past 2 weeks her flow rate during dialysis swanson s decreased. She denies any increased bleeding after dialysis or high pressures during dialy sis. She notes that the thrill to her AV fistula has decreased over her access sites and is only noted in the most distal aspect of the fistula. Her last fistulogram was performed here at [facility] by Dr. Whaley on 08/21/2014 and was noted to have a tandem stenosis in the proxi mal left cephalic vein adjacent to the arterial venous anastomosis. She underwent angioplast y with good results. She was referred to us for evaluation of her AV fistula. Hospital Problem List: Patient Active Problem List Diagnosis HSP (Henoch Schonlein purpura) ([facility]) ESRD on hemodialysis ([facility]) Review of Systems: Review of Systems Constitutional: Negative for fever and chills. HENT: Negative for sore throat, trouble swallowing and voice change. Eyes: Negative for pain and visual disturbance. Respiratory: Positive for cough. Negative for chest tightness, shortness of breath and whee zing. Cardiovascular: Negative for chest pain and leg swelling. Gastrointestinal: Negative for nausea, vomiting, abdominal pain, diarrhea, blood in stool a nd abdominal distention. Genitourinary: Positive for decreased urine volume. Negative for dysuria, hematuria and dif ficulty urinating. Musculoskeletal: Negative for back pain, arthralgias, gait problem, neck pain and neck stif fness. Skin: Negative for color change, pallor, rash and wound. Neurological: Positive for light-headedness. Negative for dizziness, seizures, syncope, num bness and headaches. Hematological: Does not bruise/bleed easily. All other systems negative. Past Medical History: Past Medical History Diagnosis Date HSP (Henoch-Schonlein purpura) nephritis Hypertension Clotted dialysis access ([facility]) 2014 ESRD (end stage renal disease) ([facility]) Anemia Past Surgical History: Past Surgical History Procedure Laterality Date Av fistula placement Renal biopsy Laparoscopic peritoneal dialysis catheter insertion x2 Abdominal surgery Av fistula repair Left 03/07/2014 Procedure: AV FISTULA - GRAFT REPAIR/REVISION; Surgeon: Rik Simon MD; [facility]; Service: Vascular; Laterality: Left; Declot graft Left 03/07/2014 Procedure: GRAFT - DECLOT; Surgeon: Rik Simon MD; Location: [facility] MA[facility] OR; Service: Va scular; Laterality: Left; Av fistula placement Left 04/08/2014 Procedure: AV FISTULA; Surgeon: Rik Simon MD; Location: [facility] MAIN OR; Service: Vascul ar; Laterality: Left; cephalic Dialysis fistula creation N/A 04/08/2014 Procedure: DIALYSIS CATHETER - INSERTION; Surgeon: Rik Simon MD; Location: [facility] MAIN O R; Service: Vascular; Laterality: N/A; tunneled catheter Laparoscopic peritoneal dialysis catheter insertion Right 07/2013 current dialysis access MWF dialysis Superficialization of av fistula Left 06/24/2014 Procedure: AV FISTULA - SUPERFICIALIZATION; Surgeon: Rik Simon MD; Location: [facility] MA[facility] OR; Service: Vascular; Laterality: Left; Family History: History reviewed. No pertinent family history. Social History: History Social History Marital Status: Single Spouse Name: N/A Number of Children: N/A Years of Education: N/A Social History Main Topics Smoking status: Current Every Day Smoker -- 0.50 packs/day for .5 years Smokeless tobacco: None Alcohol Use: No Drug Use: No Sexual Activity: None Other Topics Concern None Social History Narrative Medications and Allergies: Current Medications: sodium chloride 10 mL Intravenous Q8H Prescriptions prior to admission Medication Sig Dispense Refill Last Dose sevelamer (RENVELA) 800 MG tablet Take 800 mg by mouth 3 (three) times daily with meals . 10/27/2014 at 2200 traMADol (ULTRAM) 50 MG tablet Take 50 mg by mouth every 12 (twelve) hours as needed fo r Pain. 10/27/2014 at 2200 cinacalcet (SENSIPAR) 30 MG tablet Take 60 mg by mouth daily. More than a month at Un known time Allergies: Allergies Allergen Reactions Morphine Rash Tape [Adhesive Tape] Rash Use silk tape only Labs: Results for orders placed or performed during the hospital encounter of 10/28/14 (from the past 24 hour(s)) Basic metabolic panel Collection Time: 10/28/14 9:46 AM Result Value Ref Range SODIUM 138 135 - 143 mmol/L POTASSIUM 3.9 3.5 - 4.9 mmol/L CHLORIDE 97 (L) 99 - 109 mmol/L CO2 34 (H) 23 - 32 mmol/L ANION GAP AGAP 12 5 - 20 mmol/L GLUCOSE 87 65 - 99 mg/dL BUN 23 8 - 25 mg/dL CREATININE 6.4 (H) 0.50 - 1.00 mg/dL BUN/CREAT 4 CALCIUM 9.5 8.5 - 10.5 mg/dL EGFR >60 mL/min/1.73m2 CALCULATION NOT PERFORMED. RESULT NOT VALID IF AGE LT 20 YEARS. Hemogram with differential Collection Time: 10/28/14 9:46 AM Result Value Ref Range WBC 6.76 3.80 - 11.00 K/uL RBC 3.88 3.70 - 5.10 M/uL HGB 14.1 11.3 - 15.5 g/dL HCT 41.4 34.0 - 46.0 % MCV 106.7 (H) 80.0 - 100.0 fl MCH 36.4 (H) 27.0 - 34.0 pg MCHC 34.1 32.0 - 35.5 g/dL RDW SD 54.7 (H) 37 - 53 fl PLT 168 150 - 400 K/uL MPV 9.1 fl Protime-INR Collection Time: 10/28/14 9:46 AM Result Value Ref Range INR 1.0 Imaging/Procedures: Pertinent Studies and Results Imaging Data: IR angioplasty AV fistula venous [[id number]] Status: Final result Study Result DARA LOUISE IR DIALYSIS FISTULAGRAM 08/21/2014 6:01 PM HISTORY: 19 years. Female. With chronic kidney disease stage V presents with decreasing KT over V. 5 85.6, 996.1 EXAMINATION Left brachiocephalic fistulogram and angioplasty of the multiple tandem stenosis in proxima l left cephalic vein adjacent to arterial anastomosis using 4 mm x 4 cm and 6 mm x 4 cm ball oon catheter. MEDICATIONS: Isovue-200 34 cc, Heparin 5000 units intravenous, Versed 2 mg intravenous, fentanyl 50-mcg intravenous. Intra-procedure sedation time 33 minutes. The radiation dose 23 mGray, Fluorosc opy time 2.6 minutes. Appropriate physiologic monitoring, maintenance of adequate conscious sedation and independent group home supervision performed throughout the procedure. PROCEDURE: Informed written consent obtained from the patient after explaining the procedure, risks an d alternatives. Patient understood the discussion and expressed a wish to proceed. The appropriate side and site was labeled and initialed as an independent process anteceden t to the imaging and intervention, as per protocol at this institution. Patient was placed supine on the x-ray table. The left arm prepped in the usual sterile fas hion. Left the brachiocephalic fistula was accessed using micropuncture needle and exchanged for 4-Haitian micropuncture sheath. Initial fistula pressure was obtained and fistulogram ob tained from the left cubital fossa to the right atrium. Then, by occluding the outflow reflu x evaluation the arterial anastomosis obtained. This revealed significant, tandem stenosis i n proximal left cephalic vein adjacent to arterial venous anastomosis. Then,, I decided to p erform angioplasty of the venous lesions. A second access obtained into mid forearm directed towards the arterial anastomosis using micropuncture needle and exchanged for 4 Haitian shor t sheath over 0.03, angled Glidewire. Subsequently, Glidewire was exchanged for 0.014, mailm an wire over 4 Haitian angled glide catheter. Then, 4 mm x 4 cm balloon catheter placed with wire and angioplasty the arterial venous anastomosis performed. Then, reflux fissure gram re vealed significant focal stenosis in proximal cephalic vein. Then, 6 mm x 4 symmetry balloon catheter placed across the stenosis and balloon angioplasty performed. Final fistulogram ob tained. Final fistula pressures obtained. Patient tolerated the procedure well. No post comp lications. All catheters and wires were removed. Hemostasis obtained with manual pressure. FINDINGS 1. Initial fistula pressure 26/17 mm Hg, arterial pressure 143/80 mm Hg, final fistula pres sure 21/17 mm Hg. 2. Left brachiocephalic fissure gram revealed significant, tandem stenosis in proximal left cephalic vein adjacent to arterial anastomosis. Rest of the draining veins and central vein s widely patent. 3. Successful angioplasty of the proximal cephalic venous stenosis and arteriovenous anasto motic stenosis using 4 mm and 6 limited balloon without incidence. IMPRESSION: 1. Successful left brachiocephalic fissure gram and angioplasty the significant tandem sten osis in proximal left cephalic vein adjacent to arterial venous anastomosis without incidenc [place]. [id number], 69092, 97225, [address] Physical Examination: Filed Vitals: 10/28/14 1030 BP: 115/58 Pulse: 71 Temp: 97.6 F (36.4 C) Resp: 16 SpO2: 96% Physical Exam Constitutional: She is oriented to person, place, and time. No distress. HENT: Head: Normocephalic and atraumatic. Mouth/Throat: Oropharynx is clear and moist. No oropharyngeal exudate. Eyes: Conjunctivae and EOM are normal. Pupils are equal, round, and reactive to light. Righ t eye exhibits no discharge. Left eye exhibits no discharge. No scleral icterus. Neck: Normal range of motion. Neck supple. No JVD present. No tracheal deviation present. Cardiovascular: Normal rate, regular rhythm, normal heart sounds and intact distal pulses. No murmur heard. Pulmonary/Chest: Effort normal and breath sounds normal. No respiratory distress. She has n o wheezes. She has no rales. She exhibits no tenderness. Abdominal: Soft. She exhibits no distension. There is no tenderness. Musculoskeletal: She exhibits no edema. Neurological: She is alert and oriented to person, place, and time. Skin: Skin is warm and dry. She is not diaphoretic. No pallor. Psychiatric: She has a normal mood and affect. Her behavior is normal. Plan for Sedation: IV Conscious Sedation with Fentanyl and Versed. Moderate Sedation Presedation Assessment completed. ASA Classification: ASA 3: Patient with a severe systemic disease Mallampati Classification: II: Visibility of hard and soft palate, upper portion of tonsil s and uvula Consent: Risks, alternatives, potential medical consequences, and benefits of the procedure were dis cussed with the patient. Questions were answered to their satisfaction. Signed and verbal co nsent were given as witnessed by staff. Pre-Procedure Diagnosis: ESRD on hemodialysis Procedure to be performed: AV fistulogram with possible intervention Assessment and Plan: 19-year-old female with history of Henoch Schonlein Purpura and end-stage renal disease rec eiving dialysis. Her left upper arm AV fistula has a decreased thrill and patient reports de creased flow rates during dialysis. Plan is for AV fistulogram with possible intervention. P jen and procedure were discussed with the patient and she verbalized understanding, all of h er questions were answered to her satisfaction. Thank you for consulting interventional radiology on this case. Please do not hesitate to contact us for any questions or concerns. KRISHNA MCCLAIN 10/28/2014 11:31 AM Interventional Radiology documented in th is encounter Miscellaneous Notes Op Note - Jigar [id number], MD - 10/28/2014 1:28 PM PDTFormatting of this note might b e different from the original. Brief Op Note by Colten Hutchins MD PhD at 10/28/14 9936 Author: Colten Hutchins MD PhD Service: Interventional Radiology Author Type: Physician Filed: 10/28/14 0879 Date of Service: 10/28/141 Status: Signed Grounds Supervisor: Colten Hutchins MD PhD (Physician) Interventional Radiology Post Procedure Note Patient Name: Dara Louise Date of : 1995 Procedure(s): Left upper extremity fistulogram, perianastomotic balloon and cutting balloon angioplasty Pre OP Diagnosis: poor functioning fistula Post OP Diagnosis: same Interventional Radiologist: Colten Hutchins MD Anesthesia Type: IV Conscious Sedation with Fentanyl and Versed. Findings: recurrent perianastomotic tandem flow limiting stenoses recalcitrant to standard balloon angioplasty requiring 3.5 mm cutting balloon and 5 mm standard balloon angioplasty. Specimens: none EBL: none Complications: None PLAN: ready for dialysis A full report will follow in the imaging section. Colten Hutchins MD, PhD Interventional Radiologist and Vascular Medicine Specialist documented in t his encounter Plan of Treatment Not on filedocumented as of this encounter Procedures + +--------+ + + + | Procedure Name | Priori | Date/Time | Associated Diagnosis | Comments | | | ty | | | | + +--------+ + + + | IR INJECTION | Routin | 10/28/2014 | | Results for this | | DIALYSIS CIRCUIT W | e | 1:36 PM | | procedure are in the | | ANGIOPLASTY | | PDT | | results section. | + +--------+ + + + | IR INJECTION | Routin | 10/28/2014 | | Results for this | | DIALYSIS CIRCUIT | e | 1:36 PM | | procedure are in the | | | | PDT | | results section. | + +--------+ + + + | US GUIDED VASCULAR | Routin | 10/28/2014 | | Results for this | | ACCESS | e | 1:35 PM | | procedure are in the | | | | PDT | | results section. | + +--------+ + + + | PROTIME INR | Routin | 10/28/2014 | | Results for this | | | e | 9:46 AM | | procedure are in the | | | | PDT | | results section. | + +--------+ + + + | CBC NO DIFFERENTIAL | Routin | 10/28/2014 | | Results for this | | | e | 9:46 AM | | procedure are in the | | | | PDT | | results section. | + +--------+ + + + | BASIC METABOLIC | Routin | 10/28/2014 | | Results for this | | PANEL | e | 9:46 AM | | procedure are in the | | | | PDT | | results section. | + +--------+ + + + documented in this encounter Results IR Inj Dialysis Circuit w Angioplasty (10/28/2014 1:36 PM PDT) + + | Specimen | + + | | + + + + + | Impressions | Performed At | + + + | Recurrent perianastomotic venous outflow flow-limiting tandem | | | stenoses. Successful left brachiocephalic fistula perianastomotic | | | venous angioplasty/cutting balloon angioplasty as described. | | | | | + + + + + + | Narrative | Performed At | + + + | IR DIALYSIS FISTULAGRAM dated 10/28/2014 12:12 PM CLINICAL DATA: | | | Poor functioning left upper extremity AV fistula with prior | | | perianastomotic stenoses. COMPARISON STUDIES: 08/21/2014 | | | PRIMARY THERMAL SURFACING MACHINE OPERATOR: Colten Hutchins MD, PhD, [facility] OPERATIONS: 1. | | | Left upper extremity fistulogram 2. Ultrasound-guided retrograde | | | venous access 3. Limited diagnostic ultrasound left upper extremity | | | 4. Left cephalic venoplasty with standard and cutting balloons. | | | PROCEDURE: Informed consent was obtained from the patient. | | | Continuous cardiac monitoring was performed throughout the | | | procedure. Conscious sedation was provided by the nursing staff | | | during the procedure under my supervision. Sedation time:56 | | | minutes Medications: 3 mg Versed IV, 100 mcg Fentanyl IV, 100 mcg | | | nitroglycerin IV, 50 mg Benadryl IV, 125 mg Solu-Medrol IV | | | Contrast:17 cc Isovue 250 Fluoroscopy time:3.3 minutes Radiation | | | dose:7 mGy air kerma Patient was sterilely prepped and draped in | | | usual fashion. Ultrasound was used for diagnostic purposes to evaluate | | | the fistula prior to obtaining access. A site was selected in the mid | | | upper arm cephalic vein. The skin was locally anesthetized with 1% | | | lidocaine and real-time ultrasound guided micropuncture access was | | | obtained. The wire was advanced to the area of stenosis. A 4 Haitian | | | sheath was placed. Patient was heparinized. The angiographic catheter | | | and wire were advanced into the proximal brachial artery and | | | angiogram was performed demonstrating severe recurrent tandem stenoses | | | of the perianastomotic venous outflow. 5 mm angioplasty balloon was | | | inflated multiple times with recalcitrant recoil of the more distal | | | stenosis noted. A 3.5 mm cutting balloon was advanced and inflated | | | over the lesion multiple times. Repeat 5 mm angioplasty balloon was | | | performed. The endograft catheter was advanced back into the brachial | | | artery and angiogram was repeated demonstrating an acceptable result. | | | The catheter was removed. Temporary pursestring suture was placed | | | and the sheath was removed with immediate hemostasis. During the | | | procedure patient had repeated complaints of facial itching. She was | | | stable throughout the procedure and have no rash. She was given | | | Benadryl and Solu-Medrol prophylactically. FINDINGS: By | | | ultrasound, there is recurrent tandem severe stenoses of the | | | perianastomotic venous outflow approximately 1 to 2 cm from the | | | arteriovenous anastomosis. A mild stenosis which does not appear flow | | | limiting is noted approximately 5 cm more central to the | | | perianastomotic stenoses. Following retrograde access and catheter | | | placement within the brachial artery, angiography confirms a severe | | | tandem stenosis at the perianastomotic venous outflow. The | | | arteriovenous anastomosis is widely patent. Following multiple | | | balloon angioplasty, cutting balloon angioplasty and repeat | | | angioplasty as described, marked improvement in the severe tandem | | | stenoses is noted with clinical improvement of thrill. No central | | | imaging was performed. | | + + + + + | Procedure Note | + + | [facility] Rad Conversion - 10/19/2018 6:38 AM PDT IR DIALYSIS FISTULAGRAM dated 10/28/2014 | | 12:12 PM CLINICAL DATA: Poor functioning left upper extremity AV fistula with prior | | perianastomotic stenoses. COMPARISON STUDIES: 08/21/2014 PRIMARY THERMAL SURFACING MACHINE OPERATOR: Colten | | MD Liset, PhD, [facility] OPERATIONS:1. Left upper extremity fistulogram2. Ultrasound-guided | | retrograde venous access3. Limited diagnostic ultrasound left upper extremity4. Left | | cephalic venoplasty with standard and cutting balloons. PROCEDURE: Informed consent was | | obtained from the patient. Continuous cardiac monitoring was performed throughout the | | procedure. Conscious sedation was provided by the nursing staff during the procedure | | under my supervision. Sedation time:56 minutesMedications: 3 mg Versed IV, 100 mcg | | Fentanyl IV, 100 mcg nitroglycerin IV, 50 mg Benadryl IV, 125 mg Solu-Medrol IV | | Contrast:17 cc Isovue 250Fluoroscopy time:3.3 minutesRadiation dose:7 mGy air kerma | | Patient was sterilely prepped and draped in usual fashion. Ultrasound was used for | | diagnostic purposes to evaluate the fistula prior to obtaining access. A site was | | selected in the mid upper arm cephalic vein. The skin was locally anesthetized with 1% | | lidocaine and real-time ultrasound guided micropuncture access was obtained. The wire | | was advanced to the area of stenosis. A 4 Haitian sheath was placed. Patient was | | heparinized. The angiographic catheter and wire were advanced into the proximal brachial | | artery and angiogram was performed demonstrating severe recurrent tandem stenoses of | | the perianastomotic venous outflow. 5 mm angioplasty balloon was inflated multiple times | | with recalcitrant recoil of the more distal stenosis noted. A 3.5 mm cutting balloon | | was advanced and inflated over the lesion multiple times. Repeat 5 mm angioplasty | | balloon was performed. The endograft catheter was advanced back into the brachial artery | | and angiogram was repeated demonstrating an acceptable result. The catheter was | | removed. Temporary pursestring suture was placed and the sheath was removed with | | immediate hemostasis. During the procedure patient had repeated complaints of facial | | itching. She was stable throughout the procedure and have no rash. She was given | | Benadryl and Solu-Medrol prophylactically. FINDINGS: By ultrasound, there is recurrent | | tandem severe stenoses of the perianastomotic venous outflow approximately 1 to 2 cm | | from the arteriovenous anastomosis. A mild stenosis which does not appear flow limiting | | is noted approximately 5 cm more central to the perianastomotic stenoses. Following | | retrograde access and catheter placement within the brachial artery, angiography | | confirms a severe tandem stenosis at the perianastomotic venous outflow. The | | arteriovenous anastomosis is widely patent. Following multiple balloon angioplasty, | | cutting balloon angioplasty and repeat angioplasty as described, marked improvement in | | the severe tandem stenoses is noted with clinical improvement of thrill. No central | | imaging was performed. IMPRESSION: Recurrent perianastomotic venous outflow | | flow-limiting tandem stenoses. Successful left brachiocephalic fistula perianastomotic | | venous angioplasty/cutting balloon angioplasty as described. | | perianastomotic stenoses. | | | |Following retrograde access and catheter placement within the brachial artery, angiography confirms a severe tandem stenosis at the perianastomotic venous outflow. The arteriovenous a nastomosis is widely patent. | | | |Following multiple balloon angioplasty, cutting balloon angioplasty and repeat angioplasty as described, marked improvement in the severe tandem stenoses is noted with clinical improv ement of thrill. | | | |No central imaging was performed. 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 Successful left bra chiocephalic fistula perianastomotic venous angioplasty/cutting balloon angioplasty as descr ibed. | | | | | + + IR Inj Dialysis Circuit (10/28/2014 1:36 PM PDT) + + | Specimen | + + | | + + + + + | Impressions | Performed At | + + + | Recurrent perianastomotic venous outflow flow-limiting tandem | | | stenoses. Successful left brachiocephalic fistula perianastomotic | | | venous angioplasty/cutting balloon angioplasty as described. | | | | | + + + + + + | Narrative | Performed At | + + + | IR DIALYSIS FISTULAGRAM dated 10/28/2014 12:12 PM CLINICAL DATA: | | | Poor functioning left upper extremity AV fistula with prior | | | perianastomotic stenoses. COMPARISON STUDIES: 08/21/2014 | | | PRIMARY THERMAL SURFACING MACHINE OPERATOR: Colten Hutchins MD, PhD, [facility] OPERATIONS: 1. | | | Left upper extremity fistulogram 2. Ultrasound-guided retrograde | | | venous access 3. Limited diagnostic ultrasound left upper extremity | | | 4. Left cephalic venoplasty with standard and cutting balloons. | | | PROCEDURE: Informed consent was obtained from the patient. | | | Continuous cardiac monitoring was performed throughout the | | | procedure. Conscious sedation was provided by the nursing staff | | | during the procedure under my supervision. Sedation time:56 | | | minutes Medications: 3 mg Versed IV, 100 mcg Fentanyl IV, 100 mcg | | | nitroglycerin IV, 50 mg Benadryl IV, 125 mg Solu-Medrol IV | | | Contrast:17 cc Isovue 250 Fluoroscopy time:3.3 minutes Radiation | | | dose:7 mGy air kerma Patient was sterilely prepped and draped in | | | usual fashion. Ultrasound was used for diagnostic purposes to evaluate | | | the fistula prior to obtaining access. A site was selected in the mid | | | upper arm cephalic vein. The skin was locally anesthetized with 1% | | | lidocaine and real-time ultrasound guided micropuncture access was | | | obtained. The wire was advanced to the area of stenosis. A 4 Haitian | | | sheath was placed. Patient was heparinized. The angiographic catheter | | | and wire were advanced into the proximal brachial artery and | | | angiogram was performed demonstrating severe recurrent tandem stenoses | | | of the perianastomotic venous outflow. 5 mm angioplasty balloon was | | | inflated multiple times with recalcitrant recoil of the more distal | | | stenosis noted. A 3.5 mm cutting balloon was advanced and inflated | | | over the lesion multiple times. Repeat 5 mm angioplasty balloon was | | | performed. The endograft catheter was advanced back into the brachial | | | artery and angiogram was repeated demonstrating an acceptable result. | | | The catheter was removed. Temporary pursestring suture was placed | | | and the sheath was removed with immediate hemostasis. During the | | | procedure patient had repeated complaints of facial itching. She was | | | stable throughout the procedure and have no rash. She was given | | | Benadryl and Solu-Medrol prophylactically. FINDINGS: By | | | ultrasound, there is recurrent tandem severe stenoses of the | | | perianastomotic venous outflow approximately 1 to 2 cm from the | | | arteriovenous anastomosis. A mild stenosis which does not appear flow | | | limiting is noted approximately 5 cm more central to the | | | perianastomotic stenoses. Following retrograde access and catheter | | | placement within the brachial artery, angiography confirms a severe | | | tandem stenosis at the perianastomotic venous outflow. The | | | arteriovenous anastomosis is widely patent. Following multiple | | | balloon angioplasty, cutting balloon angioplasty and repeat | | | angioplasty as described, marked improvement in the severe tandem | | | stenoses is noted with clinical improvement of thrill. No central | | | imaging was performed. | | + + + + + | Procedure Note | + + | Sonido Steele Conversion - 10/19/2018 6:38 AM PDT IR DIALYSIS FISTULAGRAM dated 10/28/2014 | | 12:12 PM CLINICAL DATA: Poor functioning left upper extremity AV fistula with prior | | perianastomotic stenoses. COMPARISON STUDIES: 08/21/2014 PRIMARY THERMAL SURFACING MACHINE OPERATOR: Colten | | MD Liset, PhD, [facility] OPERATIONS:1. Left upper extremity fistulogram2. Ultrasound-guided | | retrograde venous access3. Limited diagnostic ultrasound left upper extremity4. Left | | cephalic venoplasty with standard and cutting balloons. PROCEDURE: Informed consent was | | obtained from the patient. Continuous cardiac monitoring was performed throughout the | | procedure. Conscious sedation was provided by the nursing staff during the procedure | | under my supervision. Sedation time:56 minutesMedications: 3 mg Versed IV, 100 mcg | | Fentanyl IV, 100 mcg nitroglycerin IV, 50 mg Benadryl IV, 125 mg Solu-Medrol IV | | Contrast:17 cc Isovue 250Fluoroscopy time:3.3 minutesRadiation dose:7 mGy air kerma | | Patient was sterilely prepped and draped in usual fashion. Ultrasound was used for | | diagnostic purposes to evaluate the fistula prior to obtaining access. A site was | | selected in the mid upper arm cephalic vein. The skin was locally anesthetized with 1% | | lidocaine and real-time ultrasound guided micropuncture access was obtained. The wire | | was advanced to the area of stenosis. A 4 Haitian sheath was placed. Patient was | | heparinized. The angiographic catheter and wire were advanced into the proximal brachial | | artery and angiogram was performed demonstrating severe recurrent tandem stenoses of | | the perianastomotic venous outflow. 5 mm angioplasty balloon was inflated multiple times | | with recalcitrant recoil of the more distal stenosis noted. A 3.5 mm cutting balloon | | was advanced and inflated over the lesion multiple times. Repeat 5 mm angioplasty | | balloon was performed. The endograft catheter was advanced back into the brachial artery | | and angiogram was repeated demonstrating an acceptable result. The catheter was | | removed. Temporary pursestring suture was placed and the sheath was removed with | | immediate hemostasis. During the procedure patient had repeated complaints of facial | | itching. She was stable throughout the procedure and have no rash. She was given | | Benadryl and Solu-Medrol prophylactically. FINDINGS: By ultrasound, there is recurrent | | tandem severe stenoses of the perianastomotic venous outflow approximately 1 to 2 cm | | from the arteriovenous anastomosis. A mild stenosis which does not appear flow limiting | | is noted approximately 5 cm more central to the perianastomotic stenoses. Following | | retrograde access and catheter placement within the brachial artery, angiography | | confirms a severe tandem stenosis at the perianastomotic venous outflow. The | | arteriovenous anastomosis is widely patent. Following multiple balloon angioplasty, | | cutting balloon angioplasty and repeat angioplasty as described, marked improvement in | | the severe tandem stenoses is noted with clinical improvement of thrill. No central | | imaging was performed. IMPRESSION: Recurrent perianastomotic venous outflow | | flow-limiting tandem stenoses. Successful left brachiocephalic fistula perianastomotic | | venous angioplasty/cutting balloon angioplasty as described. | | perianastomotic stenoses. | | | |Following retrograde access and catheter placement within the brachial artery, angiography confirms a severe tandem stenosis at the perianastomotic venous outflow. The arteriovenous a nastomosis is widely patent. | | | |Following multiple balloon angioplasty, cutting balloon angioplasty and repeat angioplasty as described, marked improvement in the severe tandem stenoses is noted with clinical improv ement of thrill. | | | |No central imaging was performed. 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 Successful left bra chiocephalic fistula perianastomotic venous angioplasty/cutting balloon angioplasty as descr ibed. | | | | | + + US Guided Vascular Access (10/28/2014 1:35 PM PDT) + + | Specimen | + + | | + + + + + | Narrative | Performed At | + + + | This Point of Care (POC) ultrasound image has been reviewed and | | | interpreted by the physician identified as the performing physician in | | | the associated interpretation and report. | | + + + + + | Procedure Note | + + | Sonido Steele Conversion - 10/19/2018 6:38 AM PDT This Point of Care (POC) ultrasound | | image has been reviewed andinterpreted by the physician identified as the performing | | physician in theassociated interpretation and report. | | | + + CBC no Differential (10/28/2014 9:46 AM PDT) + + + + + + | Component | Value | Ref Range | Performed | Pathologist | | | | | At | Signature | + + + + + + | WBC | 6.76Comment: Testing | 3.80 - 11.00 | EXTERNAL | | | | performed at [facility] | K/uL | LAB | | | | [address];[place], [place] | | | | | | [address] | | | | + + + + + + | Non- | 3.88Comment: Testing | 3.70 - 5.10 | EXTERNAL | | | Red Blood | performed at [facility];[address] | M/uL | LAB | | | Cells | [address];[place] | | | | | Counted | [id number] | | | | + + + + + + | Hemoglobin | 14.1Comment: Testing | 11.3 - 15.5 | EXTERNAL | | | | performed at [facility] | g/dL | LAB | | | | [address];[place] | | | | | | [address] | | | | + + + + + + | Hematocrit, | 41.4Comment: Testing | 34.0 - 46.0 % | EXTERNAL | | | POC | performed at [facility] | | LAB | | | | [address];[place] | | | | | | [address] | | | | + + + + + + | MCV | 106.7 (H)Comment: | 80.0 - 100.0 fl | EXTERNAL | | | | Testing performed at | | LAB | | | | [facility] | | [address];[place] [address] | | | | + + + + + + | MCH | 36.4 (H)Comment: Testing | 27.0 - 34.0 pg | EXTERNAL | | | | performed at [facility] | | LAB | | | | [address];[place] | | | | | | [address] | | | | + + + + + + | MCHC | 34.1Comment: Testing | 32.0 - 35.5 | EXTERNAL | | | | performed at [facility] | g/dL | LAB | | | | [address];[place] | | | | | | [address] | | | | + + + + + + | RDW-CV | 54.7 (H)Comment: Testing | 37 - 53 fl | EXTERNAL | | | | performed at [facility] | | LAB | | | | [address];[place] | | | | | | [address] | | | | + + + + + + | Platelet | 168Comment: Testing | 150 - 400 K/uL | EXTERNAL | | | Count | performed at [facility] | | LAB | | | Plasma | [address];[place] | | | | | | [address] | | | | + + + + + + | MPV | 9.1Comment: Testing | fl | EXTERNAL | | | | performed at [facility] | | LAB | | | | [address];[place] | | | | | | [address] | | | | + + + + + + + + | Specimen | + + | | + + + +---------+ + + | Performing | Address | City/State/Zipcode | Phone Number | | Organization | | | | + +---------+ + + | EXTERNAL LAB | | | | + +---------+ + + Protime INR (10/28/2014 9:46 AM PDT) + + + + + + | Component | Value | Ref Range | Performed | Pathologist | | | | | At | Signature | + + + + + + | INR | 1.0Comment: REFERENCE | | EXTERNAL | | | | RANGE:0.9 - 1.2 | | LAB | | | | NON-ANTICOAGULATED2.0 | | [...] | | | | | performed at [facility] | | | | | | [address];[place], [place] | | | | | | [address] | | | | + + + + + + + + | Specimen | + + | Blood specimen | | (specimen) | + + + +---------+ + + | Performing | Address | City/State/Zipcode | Phone Number | | Organization | | | | + +---------+ + + | EXTERNAL LAB | | | | + +---------+ + + Basic Metabolic Panel (10/28/2014 9:46 AM PDT) + + + + + + | Component | Value | Ref Range | Performed | Pathologist | | | | | At | Signature | + + + + + + | Na | 138Comment: Testing | 135 - 143 | EXTERNAL | | | | performed at [facility] | mmol/L | LAB | | | | [address];[place] | | | | | | [address] | | | | + + + + + + | K | 3.9Comment: Testing | 3.5 - 4.9 | EXTERNAL | | | | performed at [facility] | mmol/L | LAB | | | | [address];[place] | | | | | | [address] | | | | + + + + + + | Cl | 97 (L)Comment: Testing | 99 - 109 mmol/L | EXTERNAL | | | | performed at [facility] | | LAB | | | | [address];[place] | | | | | | [address] | | | | + + + + + + | CO2 | 34 (H)Comment: Testing | 23 - 32 mmol/L | EXTERNAL | | | | performed at [facility] | | LAB | | | | [address];[place] | | | | | | [address] | | | | + + + + + + | Anion Gap | 12Comment: Testing | 5 - 20 mmol/L | EXTERNAL | | | | performed at [facility] | | LAB | | | | [address];[place] | | | | | | [address] | | | | + + + + + + | Glucose, | 87Comment: Testing | 65 - 99 mg/dL | EXTERNAL | | | Fasting | performed at [facility] | | LAB | | | | [address];[place] | | | | | | [address] | | | | + + + + + + | BUN | 23Comment: Testing | 8 - 25 mg/dL | EXTERNAL | | | | performed at [facility] | | LAB | | | | [address];[place] | | | | | | [address] | | | | + + + + + + | Creatinine | 6.4 (H)Comment: Testing | 0.50 - 1.00 | EXTERNAL | | | | performed at [facility] | mg/dL | LAB | | | | [address];[place] | | | | | | [address] | | | | + + + + + + | BUN/Creatin | 4Comment: Testing | | EXTERNAL | | | ine Ratio | performed at [facility] | | LAB | | | | [address];[place] | | | | | | [address] | | | | + + + + + + | Calcium | 9.5Comment: Testing | 8.5 - 10.5 | EXTERNAL | | | | performed at [facility] | mg/dL | LAB | | | | [address];[place] | | | | | | [address] | | | | + + + + + + | Estimated | CALCULATION NOT | mL/min/1.73m2 | EXTERNAL | | | GFR | PERFORMED. RESULT NOT | | LAB | | | | VALID IF AGE LT 20 | | | | | | YEARS.Comment: Testing | | | | | | performed at [facility] | | | | | | [address];[place] | | | | | | [address] | | | | + + + + + + + + | Specimen | + + | Blood specimen | | (specimen) | + + + +---------+ + + | Performing | Address | City/State/Zipcode | Phone Number | | Organization | | | | + +---------+ + + | EXTERNAL LAB | | | | + +---------+ + + documented in this encounter Visit Diagnoses + + | Diagnosis | + + | ESRD (end stage renal disease) (HCC) End stage renal disease | + + documented in this encounter"
--- OUTSIDE RECORDS SUMMARY | ~2019-12-21 | XMS | Encounter Summary ---
Demographics + + + | Address | [address] | | | [place] [address] | + + + | Home Phone [...] | | | | | [place] [address] | | + + + + + | Thania Mallory | ECON | [address] | | | | | [place] [address] | | + + + + + | Deidra Weldon | ECON | [address] | | | | | [place] | | | | | [address] | | + + + + + Care Team Providers + +------+ + | Care Purchasing Specialist Name | Role | Phone | + +------+ + | Shahid Camargo MD | PCP | | + +------+ + Reason for Visit +--------+--------+ + | Reason | Onset | Comments | | | Date | | +--------+--------+ + | Other | 11/15/ | Requested [id number] | | | 2012 | | +--------+--------+ + Encounter Details +--------+ + + + + | Date | Type | Department | Care Team | Description | +--------+ + + + + | 11/15/ | Telephone | Clinical | Jesus Edmond, | Other (Requested | | 2012 | | Transplant Services | [address] | [id number]) | | | | [address] | [facility] | | | | | [place], | [place], [place] | | | | | [place] [address] | [address] | | | | | [phone] | [phone] | | | | | | | [...] Denise | | | | | | [place], [place] | | | | | | [address] | | | | | | [phone] | | | | | | | | +--------+ + + + + documented as of this encounter Visit Diagnoses Not on filedocumented in this encounter"
--- OUTSIDE RECORDS SUMMARY | ~2019-12-21 | XMS | Encounter Summary ---
Demographics + + + | Address | [address] | | | [place] [address] | + + + | Home Phone [...] Author + + + | Author | [facility] | | | and [place] | + + + | Organization | [facility] | | | and [...] Team Providers + +------+ + | Care Sheet Metal Journeyman Name | Role | Phone | + +------+ + PCP | Unavailable | + +------+ + Encounter Details +--------+ + + + + | Date | Type | Department | Care Team | Description | +--------+ + + + + | 08// | Orders Only | [facility] [place] | Jorje Camp | ESRD (end stage | | 2015 | | NEPHROLOGY [address] | M, DO [address] | renal disease) ([facility]) | | | | [address] | [address] [place] | (Primary Dx) | | | | [place], [place] | [place] [address] | | | | | [address] | [phone] | | | | | [phone] | | | +--------+ + + + [...]
--- OUTSIDE RECORDS SUMMARY | ~2019-12-21 | XMS | Encounter Summary ---
Demographics + + + | Address | [address] | | | [place] [address] | + + + | Home Phone [...] | | | | | [place] [address] | | + + + + + | Thania Mallory | ECON | [address] | | | | | [place] [address] | | + + + + + | Deidra Weldon | ECON | [address] | | | | | [place] | | | | | [address] | | + + + + + Care Team Providers + +------+ + | Care Surgery Tech Name | Role | Phone | [...] pt's | | | | [place], | [place], [place] | support plan & | | | | [place] [address] | [address] | social changes) | | | | [phone] | | | +--------+ + + + [...] SMILEY FANG on 2014 while at her [facility] renal clinic appt at [facility]. Her mother Thania was present during interview. [facility] Tri FANG, ph #[phone] was consulted with the same week of [...] who [place] in [place], [place] with her boyfriend. Patient has lived [...] also working . He is living near [place], [place]. Financial/Insurance Issues: Patient receives $415 per [...] dialysis physici an, Dr. Ibarra and her animal care worker, Tri, they both believe she would [...] clos e friend named Wilson, ph # [phone]; who is like a "second mother" as [...] sister Evelyn michel, (21) who lives in [place] could hlep her out again not as primary but in part. [place] SW re viewed some of the primary support person needs and will send the family a SPA to complete. They will stay in a local hotel, unlikely [employer] but this can be evaluated a t [...] on progress in 3 months. Mariza Hsu, DYNAMIC BALANCER SET UP WORKER, BROOM MAKER Pediatric Renal Transplant Mat Gauger pg. #[phone] documented in this en counter Plan of Treatment +--------+ + + + + | Date | Type | Specialty | Care Team | Description | +--------+ + + + + | 05/04/ | Hospital | Adult Acute Care | El Starr MD | | | 2022 | Encounter | | [address] | | | | | | [place], [place] | | | | | | [address] | | | | | | [phone] | | | | | | | | +--------+ + + + + documented as of this encounter Visit Diagnoses Not on filedocumented in this encounter
--- OUTSIDE RECORDS SUMMARY | ~2019-12-21 | XMS | Encounter Summary ---
Demographics + + + | Address | [address] | | | [place] [address] | + + + | Home Phone [...] Author + + + | Author | [facility] | | | and [place] | + + + | Organization | [facility] | | | [...] Team Providers + +------+ + | Care Waste Baler Name | Role | Phone | + +------+ + | Jonathan Alonso MD | PCP | | + +------+ + Reason for Visit + + + | Reason | Comments | + + + | Medical Problem | needs dialysis, transfer from [facility], labs done, not available | | (Major) | there today. | + + + Auth/Cert +--------+--------+ + + + + | Status | Reason | Specialty | Diagnoses / | Referred By | Referred To | | | | | Procedures | Contact | Contact | +--------+--------+ + + + + | | | | Diagnoses | | | | | | | Shortness | | | | | | | of breath | | | | | | | Acute | | | | | | | pulmonary | | | | | | | edema (HCC) | | | | | | | ESRD on | | | | | | | dialysis | | | | | | | (HCC) | | | | | | | HD | | | +--------+--------+ + + + + Encounter Details +--------+ + + + + | Date | Type | Department | Care Team | Description | +--------+ + + + + | 07/13/ | Hospital | [facility] | Luz Zuniga DO [address] | Shortness of breath | | 2019 - | Encounter | [facility] [address] | (Primary Dx); ESRD | | | | [address] | [place] [address] | on dialysis ([facility]); | | 07/17/ | | [place], [place] | [phone] | Acute pulmonary | | 2020 | | [address] | | edema ([facility]); At high | | | | [phone] | Sotero Reinoso MD | risk for | | | | | [address] | electrolyte | | | | | [place] | imbalance; Chronic | | | | | [address] | 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 | | | | | AlexandruJeronimo nicholson | failure (HCC); | | | | | MD Kodi [address] | Noncompliance; | | | | | [address] [place], [place] | Pleural effusion, | | | | | [address] | not elsewhere | | | | | | classified; Acute on | | | | | Loreta Ingram MD | chronic respiratory | | | | | [address] | failure with | | | | | [place] [address] | hypoxia (HCC); Acute | | | | | [phone] | on chronic combined | | | | | | systolic and | | | | | | diastolic CHF | | | | | | (congestive heart | | | | | | failure) (HCC) | +--------+ + + + + Social [...] + + + | Blood Pressure | 122/57 | 07/18/2019 3:30 PM | | | | | PDT | | + + + + + | Pulse | 80 | 07/18/2019 3:30 PM | | | | | PDT | | + + + + + | Temperature | 36.8 C (98.3 F) | 07/18/2019 3:30 PM | | | | | PDT | | + + + + + | Respiratory Rate | 16 | 07/18/2019 3:30 PM | | | | | PDT | | + + + + + | Oxygen Saturation | 99% | 07/18/2019 3:30 PM | | | | | PDT | | + + + + + | Inhaled Oxygen | - | - | | | Concentration | | | | + + + + + | Weight | 69.3 kg (152 lb 12.5 | 07/18/2019 12:42 PM | | | | oz) | PDT | | + + + + + | Height | 170.2 cm (5' 7") | 07/14/2019 11:48 PM | | | | | PDT | | + + + + + | Body Mass Index | 23.93 | 07/14/2019 11:48 PM | | | | | PDT | | + + + + + documented in this encounter Functional Status + + + [...] + + documented as of this encounter Discharge Summaries Sotero Reinoso MD - 07/18/2019 3:52 PM PDTFormatting of this note might be different fr om the original. Patient: Dara Weldon : 1995 Date of Admission: 07/14/2019 Date of Discharge: 07/18/2019 Treatment Team: Cliff Duarte MD Discharging Provider: Sotero Reinoso MD Discharge Diagnoses: Principal Problem: Acute on chronic respiratory failure with hypoxia Active Problems: ESRD on hemodialysis Uncontrolled hypertension Recurrent right pleural effusion Anemia in ESRD (end-stage renal disease) Moderate to severe pulmonary hypertension Acute on chronic combined systolic and diastolic CHF (congestive heart failure) Weakness generalized Resolved Problems: * No resolved hospital problems. * Chief Complaint: Medical Problem (Major) (needs dialysis, transfer from [facility], labs done, not available there today.) Hospital Course: Briefly,24-year-old female with significant past medical history ofHSP, end-stage renal disease on hemodialysis occasionally noncompliant (MWF Dr. 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 Patient was admitted to regular medical floor with volume overload from missed hemodialysis session and acute on chronic combined congestive heart failure exacerbation secondary to me dical noncompliance. The patient underwent hemodialysis kindly see energy projects lead note for further details. The patient did demonstrate some chest discomfort status post right thorac entesis with a total of 1500 cc of dai fluid removed. Postprocedural x-ray demonstrates n o findings of pneumothorax. Body fluid labs indicated transudate of effusion. 2D echo demo nstrated an EF of 45-50% with severely dilated right ventricle, severe tricuspid regurgitati on, severe pulmonary hypertension, and CVP 15. Patient had unremarkable delta troponin. Th e patient continued to demonstrate improvement and on the day of discharge was alert oriente d x4, tolerating p.o. diet without symptoms, clinically, hemodynamically and from a laborato ry perspective stable for discharge with outpatient follow-up. The patient is to follow-up with her primary care provider within 1 week after discharge and to continue hemodialysis se ssions as per her regular schedule. The patient is to follow-up with her energy projects lead arash mccormack 1 to 2 weeks after discharge. The patient is to follow-up with her sewage screen operator (Dr. Mahmood ) within 1 to 2 weeks after discharge. The patient was able to reiterate what was discussed verbally demonstrating understanding. All questions answered. Discharge Exam and Data: Vital Signs: BP 131/72 | Pulse 84 | Temp 36.4 C (97.6 F) (Oral) | Resp 18 | Ht 1.702 m (5' 7") | Wt 69.3 kg (152 lb 12.5 oz) | LMP 06/04/2017 (Approximate) | SpO2 100% | No | BMI 23.93 kg/m Physical Exam Vitals signs and nursing note reviewed. Constitutional: General: She is not in acute distress. Eyes: Pupils: Pupils are equal, round, and reactive to light. Neck: Musculoskeletal: Neck supple. Cardiovascular: Rate and Rhythm: Normal rate. Pulmonary: Effort: No respiratory distress. Breath sounds: Rales (mild) present. Comments: Coarse BS Abdominal: General: Bowel sounds are normal. Palpations: Abdomen is soft. Tenderness: There is no guarding or rebound. Skin: General: Skin is warm. Neurological: General: No focal deficit present. Mental Status: She is alert and oriented to person, place, and time. Mental status is at baseline. Recent Labs BMP 136 100 16 91 4.3 30 4.96* CaMgPhos 9.6 2.0 5.5* LFT 19 123* 29 3.7 CBC 4.44 9.3* 122* 30.9* Coag 1.2 Last labs from current encounter as of 07/18/19-15:52 Recent Radiology Results Results Reviewed. Discharge Information: Follow up: Jonathan Alonso MD [address] [facility] [place] [address] Schedule an appointment as soon as possible for a visit Current active diet order is: Diet Diet renal; potassium 3 gm K; sodium restricted 2 gm; 1200 ml fluid; Effective Now Discharge Medications New Medications Details sevelamer carbonate 800 mg tablet Take 2 tablets by mouth 3 times daily (with meals). aka: RENVELA Changed Medications Details doxercalciferol 2 mcg/mL injection Inject 0.5 mLs into the vein Three times a week. Per dialysis clinic protocol What changed: how much to take aka: HECTOROL Unchanged Medications Details albuterol 90 mcg/puff inhaler Inhale 2 puffs into the lungs every 6 hours as needed for Wheezing. carvedilol 12.5 mg tablet Take 1 tablet by mouth 2 times daily. aka: COREG citalopram 20 mg tablet Take 1 tablet by mouth Daily. aka: celeXA clonazePAM 0.5 mg tablet Take 0.5 tablets by mouth Daily as needed for Anxiety (on hemodialysis days). aka: KLONOPIN clopidogrel 75 mg tablet Take 1 tablet by mouth Daily. aka: PLAVIX EPOGEN 20,000 units/mL injection Generic drug: epoetin jenna Inject 0.4 mLs (8,000 Units total) into the skin every 7 days. fluticasone 110 mcg/puff inhaler Inhale 1 puff into the lungs 2 times daily. aka: FLOVENT HFA HYDROcodone-acetaminophen 5-325 mg per tablet Take 1 tablet by mouth every 6 hours as needed. aka: NORCO ondansetron 4 mg tablet Take 4 mg by mouth 3 (three) times daily as needed for Nausea. aka: ZOFRAN pantoprazole 40 mg tablet Take 40 mg by mouth every morning before breakfast. aka: PROTONIX PARSABIV 2.5 mg/0.5 mL injection Generic drug: etelcalcetide Inject 2.5 mg into the vein Three times a week. promethazine 25 mg tablet Take 1 tablet by mouth every 8 hours as needed. aka: PHENERGAN valsartan 40 mg tablet Take 1 tablet by mouth Daily. aka: DIOVAN VENOFER 20 mg/mL injection Generic drug: iron sucrose Inject 2.5 mLs into the vein Once a week. . Disposition: home Condition: Stable Code Status: Full Code Discharge took 45 minutes, to include final examination, discussion of admission, and prepa ration of prescriptions, instructions for on-going care, follow-up and documentation of disc harge summary. Sotero Reinoso MD 3:52 PM 07/18/2019 documented in this e ncounter Discharge Instructions Instructions Benjamínrosalinejojo Adina Brigitte, Training Instructor - 07/18/2019Formatting of this note m ight be different from the original. Left- or Right- Side Congestive Heart Failure (CHF) The heart is a large muscle that acts as a pumpto circulate blood throughout the body. Bl ood carries oxygen to all of the organs, including the brain,muscles, and skin.After you r body takes the oxygen out of the blood, the blood returns to the heart. The right side of the heart collectsthe blood from the bodyand pumps it to the lungs. In the lungs, it get s fresh oxygen and gives up carbon dioxide. The oxygen-rich blood from the lungs then return s to the left side of the heart, where it ispumped backout to the rest of your body, sta rting the process all over. Congestive heart failure (CHF) occurs when the heart muscle does not function normally, jeanmarie ding to fluid retention or reduces blood flow. This can be caused by heart muscle weakness o r stiffness, or a heart valve problem. Heart failure can affect the right side of the heart or the left side. But heart failuremay affect not only the right side of the heart or only the left side. Although it may have started on one side, it can and often eventually does a ffect both sides. Right-side heart failure When the right side of the heart is failing, it can t handle the blood it is getting from the rest of the body. This blood returns to the heart through veins. When too much pressure builds up in the veins,fluid leaks out into the tissues. [place] then causesthat fluid to move to those parts of the body that are the lowest. So one of the first symptoms of righ t-side CHF can include swelling in the feet and ankles. If the condition gets worse, the swe lling can even go up past the knees. Sometimes it gets so severe, the liver and intestines c an get congested as well. Left-side heart failure When the left side of the heart is failing, it can t handle the blood it gets from the rose ngs. Pressure then builds up in the veins of the lungs, causing fluid to leak into the lung tissues. This may cause CHF and pulmonary edema. This causes you to feel short of breath,w eak, or dizzy. These symptoms are often worse with exertion, such as when climbing stairs or walking up hills. Lying with your head flat is uncomfortable and can make your breathing wo rse.This may make sleeping difficult. You may need to use extra pillows to elevate your up per bodyto sleep well. The same is true when just resting during the daytime. You may also feel weak or tired and have less energy during exertion. There are many causes of heart failure including: Coronary artery disease Past heart attack(also known as acute myocardial infarction, or AMI) High blood pressure Damaged heart valve Diabetes Obesity Cigarette smoking Alcohol abuse Heart failure is usually a chronic condition. The purpose of medical treatment is to improv e the pumping action of the heart and toremove excess water from the body. A number of med icines can help reach this goal,improvesymptoms, and prevent the heart from becoming wea ker. Sometimes, heart failure can become so severe that a device is placed in the heartto help with pumping. Another major goal is to better treat the causes of heart failure, such a s diabetesand high blood pressure, by making changes in your lifestyle and maximizing medi oly control when needed. Home care Follow these guidelines when caring for yourself at home: Check your weight every day. This is very important because a sudden increase in weight gain could mean worsening heart failure. Keep these things in mind: ? Use the same scale every day. ? Weigh yourself at the same time every day. ? Make sure the scale is roxanna hard floor surface, not on a rug or carpet. ? Keep a record of your weight every day so your healthcare provider can see it. If you are not given a log sheet for this, keep a separate journal for this purpose. Cut back on the amount of salt(sodium) you eat. Follow your healthcare provider's rei mmendation on how much salt or sodium you should have each day. ? Limit high-salt foods. These include olives, pickles, smoked meats,salted potato chips, and most prepared foods. ? Don't add salt to your food at the table. Use only small amounts of salt when cooking. ? Read the labels carefully on food packages to learn how much salt or sodium is in each se rving in the package. Remember, a can or package of food may contain more than 1 serving. So if you eat all the food in the package, you may be getting more salt than you think. Follow your healthcare provider'srecommendations about how much fluid you should have. Be aware that some foods, such as soup, pudding, and juicy fruits like oranges or melons, c ontain liquid. You'll need to count the liquid in those foods as part of your daily fluid in take. Your provider can help you with this. Stop smoking. Cut back on how much alcohol you drink. Lose weight if you are overweight. The excess weight adds a lot of stress on the workloa d of the heart. Stay active. Talk with your provider about an exercise program that is safe for your hea rt. Keep your feet elevated to reduce swelling. Ask your provider about support hose as a pr eventive treatment for daytime leg swelling. Besides taking your medicine as instructed, an important part of treatment is lifestyle gwendolyn nges. These include diet, physical activity, stopping smoking, and weight control. Improve your diet by includingmore fresh foods, cutting back on how much sugar and satura wilmer fat you eat,and eating fewer processed foods and less salt. Follow-up care Follow up with your healthcare provider, or as advised. Make sure to keep any appointments that were made for you. These can help better control yo ur congestive heart failure. You will need to follow up with your provider on a routine basi s to make sure your heart failure is well managed. If an X-ray, electrocardiogram (ECG), or other tests were done, you will be told of any new findings that may affect your care. Call 911 Call 911 if you: Become severely short of breath Feel lightheaded, or feel like you might pass out or faint Have chest pain or discomfort that is different than usual, the medicines your doctor to ld you to use for this don't help, or the pain lasts longer than 10 to 15 minutes You suddenly develop a rapid heart rate When to seek medical advice The following may besigns that your heart failure is getting worse. Call your healthcare provider right away if any of these happen: Sudden weight gain. This means 3or more pounds in one day, or5or more pounds in1 week Trouble breathing not related to being active New or increased swelling of your legs or ankles Swelling or pain in your abdomen Breathing trouble at night. This means waking up short of breath orneeding more pillow s to breathe. Frequent coughing that doesn t go away Feeling much more tired than usual Date Last Reviewed: 07/04/201719998161-6847 [employer]. [address] [place] [address], [place] [address]. All righ ts reserved. This information is not intended as a substitute for professional medical care. Always follow your healthcare professional's instructions. Hemodialysis Access Bleeding You have a hemodialysis access in your arm, either an arteriovenous (AV) fistula or an ava ry to vein graft. It has been bleeding. Blood needs to flow freely through the fistula or gr aft. As part of your treatment, you are also taking medicine that thins your blood. This rylan es you bleed more easily. It is important to stop your fistula or graft from bleeding as gopal n as possible you can quickly bleed to from a rapidly bleeding hemodialysis access. For a quickly bleeding fistula or graft, use firm pressure with a gauze or cloth until it s tops. Home care If your fistula or graft site is bleeding: If it is bleeding quickly, right away put pressure right on the spot that is bleeding wi th a gauze or cloth. Push hard till it stops. Then, get medical help right away. If it is just oozing a small amount of blood, follow these directions: Wash your hands. Dry them on a clean towel. Put a small piece of sterile gauze on the area that is bleeding. Press gently with your fingertips only on the area that is bleeding. Hold your fingers t here for 30 minutes. Don't press on the whole forearm. Don't wrap anything around the wrist or arm, including bandages. After 30 minutes, take your fingers off the area that was bleeding. Wash and dry your hands again. If it is still bleeding, call your healthcare provider or go to a hospital. General access site care The following guidelines will help you care for your access site: Wash your hands often. Keep the access site clean. Check the fistula or graft for the pulsing feeling ( thrill ) every morning and nigh t. Follow these don'ts: ? Don't let anyone take your blood pressure on your hemodialysis access arm. ? Don't let anyone take blood from or inject medication into the arm. ? Don't wear jewelry or tight sleeves over the access site. ? Don't wiggle the fistula or graft, or pick at your skin near the access. ? Don't carry anything over the arm or lift heavy objects with that arm. ? Don't sleep on your arm with the access site. Follow-up care Follow up with your healthcare provider, or as advised. Call 911 Call 911 if any of the following occur: Pain, cold, or numbness in the hand that won't go away Pale color of the hand that won't go back to pink Any major bleeding, or minor bleeding from the access site that won't stop When to seek medical advice Call your healthcare provider right away if you have any of the following: Fever of 100.4F (38C) or higher, or as directed by your healthcare provider Red, hot, or swollen area around the access site Light-colored fluid coming from the area around the access site Pain or hardness around the access site Loss of pulsing feeling ( thrill ) over the fistula or graft Date Last Reviewed: 12/05/201519990981-3962 [employer]. [address] [place] [address]. All righ ts reserved. This information is [...] 90 | Inhale 2 puffs into | | 0 | | | | mcg/puff inhaler | the lungs every 6 | | | | | | | hours as needed for | | | | | | | Wheezing. | | | | | + + + +---------+ + + | carvedilol (COREG) | Take 1 tablet by | 60 | 0 | 04/23/19 | | | 12.5 mg tablet | mouth 2 times daily. | tablet | | 20 | | + + + +---------+ + + | clonazePAM | Take 0.5 tablets by | 3 | 0 | 04/23/19 | | | (KLONOPIN) 0.5 mg | mouth Daily as | tablet | | 20 | | | tablet | needed for Anxiety | | | | | | | (on hemodialysis | | | | | | | days). | | | | | + + [...] 0.5 mLs into | | 0 | //20 | | | (HECTOROL) 2 mcg/mL | the vein Three times | | | 18 | | | injectionIndications | a week. Per | | | | | | : ESRD (end stage | dialysis clinic | | | | | | renal disease) ([facility]) | protocol | | | | | [...] + + + +---------+ + + | fluticasone | Inhale 1 puff into | | 0 | | | | (FLOVENT HFA) 110 | the lungs 2 times | | | | | | mcg/puff inhaler | daily. | | | | | + + + +---------+ + + | iron sucrose | Inject 2.5 mLs into | | 0 | 09/13/19 | | | (VENOFER) 20 mg/mL | the vein Once a | | | 15 | | | injection | week. | | | | | + + + +---------+ + + | ondansetron | Take 1 tablet by | 24 | 0 | 07/18/19 | | | (ZOFRAN ODT) 4 mg | mouth every 8 hours | tablet | | 20 | | | disintegrating | as needed for | | | | | | tablet | Nausea. | | | | | [...] tablet by | 30 | 0 | 04/23/19 | | | (PHENERGAN) 25 mg | mouth every 8 hours | tablet | | 20 | | | tablet | as needed. | | | | | + + + +---------+ + + | citalopram | Take 1 tablet by | 30 | 5 | 01/12/20 | | | (CELEXA) 20 mg | mouth Daily. | tablet | | 19 | 0 | | tablet | | | | | | + + + +---------+ + + | | Take 1 tablet by | 12 | 0 | 07/18/19 | | | HYDROcodone-acetamin | mouth every 6 hours | tablet | | 20 | 0 | | ophen (NORCO) 5-325 | as needed for Pain | | | | | | mg per tablet | for up to 3 days. | | | | | + + + +---------+ + + | sevelamer | Take 2 tablets by | 120 | 0 | 07/18/19 | | | carbonate (RENVELA) | mouth 3 times daily | tablet | | 20 | 0 | | 800 mg tablet | (with meals). | | | | | + + + +---------+ + + | valsartan (DIOVAN) | Take 1 tablet by | 90 | 3 | 01/23/20 | | | 40 mg tablet | mouth Daily. | tablet | | 19 | 0 | + + + +---------+ + + documented as of this encounter Progress Notes Daniela Barclay RN - 07/18/2019 2:00 PM PDTVisited patient in an attempt to educate he r on Congestive Heart Failure. Patient declined education stating that she is here due to h er not getting her dialysis for a week and "I need to be better about going". Gave patient t he "Living with Congestive Heart Failure" patient education book. Encouraged patient to per form daily monitoring of the patient's weight attend dialysis as directed with her provider and follow-up with Cardiology as recommended with her sewage screen operator Dr. Mahmood. Magnet provide d that displays heart failure zones and when to contact provider with complications. Discuss ed the benefit of physical activity and regular exercise with a gradual increase in activity as tolerated. Cliff Pozo MD - 07/18/2019 1:36 PM PDT [phone] LOS: 4 days To summarize previous records: Dara Weldon is a 24 y.o. woman with oliguric ESRD who follows up with Dr. Jonathan Alonso MD as primary care provider. 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 She is historically non adherent to dialysis/dietary fluid/K/Po4 restriction. She is normally dialyzed on a Monday, Monday, Monday schedule at [facility] using left upper extremity AV fistula. She used to see Dr. Trent Camp but has switched to Dr. Anguiano. She also has combined diastolic/systolic congestive heart failure and was recently hospital ized at [facility] with hypervolemia and right pleural effusion (12/10/18-12/14/18). She has not been adherent to her dialysis prescription and is admitted having missed 2 dial ysis sessions last week and a short dialysis treatment on Monday. She initially went to [facility] complaining of shortness of breath and ches t pain and indicated that she was 30 pounds over her dry weight. From chart review her dry weight is 66.5 kg and she weighed in at 80.6 kg in the hospital o n admission. She was transferred to [facility] for urgent dialysis. She received urgent dialysis with 2.3 L ultrafiltration. 07/15/19 HD with UF of 2L. 07/16/19 HD with UF of 2 L. She had thoracentesis 1.5 L without complications. Analysis wa s consistent with transudate. CXR post thoracentesis showed a right pleural effusion with atelectasis. 07/17/19 Weight after HD was 70.7 Kg (still over her EDW). Today 07/18/19 she is hemodynamically stable with no fever/tachycardia/bradycardia/severe h ypertension or severe hypotension/hypoxia. Hypertension is better controlled. She had uncomplicated HD with 2 L UF. She feels better and is looking to go home today. Lab review from today shows moderate anemia with stable thrombocytopenia no leukocytosis. PMH, PSH, Social history reviewed in chart. Allergies and medications reviewed. Previous hi story summarized as above. Prior lab data and imaging reviewed.Patient's old records and lab s were reviewed in detail and summarized. carvedilol 12.5 mg Oral BID clopidogrel 75 mg Oral Daily diclofenac 4 g Topical 4x Daily heparin (dialysis) 1,000 Units Intravenous With each dialysis heparin 5,000 Units Subcutaneous 2 times per day lidocaine 1 patch Transdermal Daily melatonin 3 mg Oral Nightly mometasone 2 puff Inhalation Daily nitroglycerin 0.5 inch Topical 4 times per day pantoprazole 40 mg Oral QAM AC sevelamer carbonate 1,600 mg Oral TID WC valsartan 40 mg Oral Daily heparin (dialysis) 500 Units/hr (07/18/19 0859) ROS: Review of systems is as per history of present illness. Otherwise a 14 organ system review of systems was done and is negative. Examination: Vitals as noted General appearance: Sitting up in bed with comfortably. Head/Neck: FROM, supple. Facial puffiness noted. JVD +. Extremities: No peripheral edema or digital cyanosis Skin: Maculopapular rash on both lower extremities below her shins. Psych: Pleasant demeanor. Neurologic: Alert, awake and oriented to person, place and time. No asterixis. Dialysis access: Left UE AVF with no evidence of malfunction/inflammation. Vital Signs: BP 131/72 | Pulse 84 | Temp 36.4 C (97.6 F) (Oral) | Resp 18 | Ht 1.702 m (5' 7") | Wt 69.3 kg (152 lb 12.5 oz) | LMP 06/04/2017 (Approximate) | SpO2 95% | N o | BMI 23.93 kg/m Data evaluation: Lab Results Component Value Date BUN 16 07/18/2019 EGFR 11 (L) 07/18/2019 NA 136 07/18/2019 K 4.3 07/18/2019 CL 100 07/18/2019 CO2 30 07/18/2019 PHOS 5.5 (H) 07/18/2019 MG 2.0 07/18/2019 HGB 9.3 (L) 07/18/2019 Lab Results Component Value Date HGB 9.3 (L) 07/18/2019 HGB 9.4 (L) 07/17/2019 HGB 9.4 (L) 07/15/2019 FERRITIN 805 (H) 01/24/2019 Lab Results Component Value Date ANIONGAP 10 07/18/2019 Ct Chest Abdomen Pelvis Wo Contrast 12/11/2018 showed large right pleural effusion with comp ressive atelectasis of the adjacent lung. 2. Mohs act attenuation in the left lung as seen on multiple prior studies 2. Mild splenomegaly. 3. Mild ascites. 4. Atrophic kidneys. 5. Tiny punctate nonobstructing left renal calculus. 6. Mild diffuse body wall edema. Echocardiogram from 12 June 2018 showed ejection fraction of 30 to 35% with restrictive LV diastolic pattern, moderate mitral regurgitation, severe tricuspid regurgitation and severe pulmonary hypertension. Echocardiogram from 12 December 2018 showed Moderately reduced left ventricular systolic fu nction with ejection fraction of 40%. Severe tricuspid regurgitation with severe pulmonary h ypertension Assessment Recommendations and plan: 1. Hypervolemia with congestive heart failure 2. End-stage renal disease on hemodialysis 3. Nonadherence to outpatient dialysis prescription 4. Anemia, chronic renal failure 5. Persistent right pleural (chronic) effusion with atelectasis. From my perspective she may be discharged to resumed maintenance HD. She is still over h er EDW. I discussed with her the concept of hypervolemia and interaction of BP/volume status/medica tions in preserving homeostasis with ESRD. She should be on a 2 gm Na, 2 gm K, 1 gm PO4, 1 gm/kg protein diet. Please dose all medications for an eGFR of less than 15 ml/min/1.73 m2. NSAIDS/SUAREZ 2 inhibitors should be avoided. Aluminum/magnesium containing antacids and magne sium/phosphate containing enemas should be avoided. Fluid should be restricted to less than 1.2 L in a 24 hr period. Strict I/O should be done. Plan of care was discussed with Dr. Reinoso. Cliff Duarte MD 07/18/2019 Portions of my previous notes have been carried over for continuity of chart review/care. She was seen earlier in the day and charting was completed later after rounds. Dictation software, TVtrip, was used which may contain error for similar sounding words. Pe rsonal communication is requested for any clarification. Also please do not construe any information/orders from unsigned notes. Recommendations are solely recommendations and not orders (unless explicitly stated so) and primary ordering authority is with primary team. Prognosis is guarded in view of multiple comorbid illnesses and ESRD including but not limi wilmer to . This is a patient with multiple complex medical problems that required considerable time an d reflection in order to properly evaluate and manage. Optimization of treatment/therapy is the primary goal. Complex analysis and decision making was involved in today's visit and req uired extended time to fully and correctly evaluate this patient's unique problems and desig n a treatment strategy that is best for their specific health problems and circumstances. Daniela Jansen Chaplain - 07/17/2019 5:17 PM PDTVisit at request of patient via nurse and piano mover Naresh to address pt struggle with losses. Goal of visit to meet, assess, and support pt. Chp plan to listen closely to pt story, with out agenda, anxiety or judgment. Pt in hospital for various chronic needs related to her dx. Loneliness from visitor restrictions led pt mind/heart down the rabbit hole of recent losse s (Uncle, best friend, rift with other close friends, and so on) Chp affirmed validity pt blaire sainz, reminded pt suffering is not a contest or zero sum game. Chp reminded pt of her int rinsic value as a human being. Pt offered thanks and gratitude for "letting me rant. I feel better to let it out. You hear d me." Chaplain Meghan Electronically signed by Chaplain Arabella at 07/16 5:34 PM Cliff Pozo MD - 07/17/2019 3:44 PM PDT [id number] LOS: 3 days To summarize previous records: Dara Weldon is a 24 y.o. woman with oliguric ESRD who follows up with Dr. Jonathan Alonso MD as primary care provider. 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 She is historically non adherent to dialysis/dietary fluid/K/Po4 restriction. She is normally dialyzed on a Monday, Monday, Monday schedule at [facility] using left upper extremity AV fistula. She used to see Dr. Trent Camp but has switched to Dr. Anguiano. She also has combined diastolic/systolic congestive heart failure and was recently hospital ized at [facility] with hypervolemia and right pleural effusion (12/10/18-12/14/18). She has not been adherent to her dialysis prescription and is admitted having missed 2 dial ysis sessions last week and a short dialysis treatment on Monday. She initially went to [facility] complaining of shortness of breath and ches t pain and indicated that she was 30 pounds over her dry weight. From chart review her dry weight is 66.5 kg and she weighed in at 80.6 kg in the hospital o n admission. She was transferred to [facility] for urgent dialysis. She received urgent dialysis with 2.3 L ultrafiltration. 07/15/19 HD with UF of 2L. 07/16/19 HD with UF of 2 L. She had thoracentesis 1.5 L without complications. Analysis wa s consistent with transudate. CXR post thoracentesis showed a right pleural effusion with atelectasis. Today 07/17/19 she is hemodynamically stable with no fever/tachycardia/bradycardia/severe h ypertension or severe hypotension/hypoxia. Hypertension is better controlled. She had uncomplicated HD with 2 L UF. Weight after HD was 70.7 Kg (still over her EDW). She does still have shortness of breath and chest discomfort. Lab review from today shows moderate anemia with stable thrombocytopenia no leukocytosis. She also had mild hyperkalemia with hyperphosphatemia. PMH, PSH, Social history reviewed in chart. Allergies and medications reviewed. Previous hi story summarized as above. Prior lab data and imaging reviewed.Patient's old records and lab s were reviewed in detail and summarized. carvedilol 12.5 mg Oral BID clopidogrel 75 mg Oral Daily diclofenac 4 g Topical 4x Daily heparin 1,500-6,000 Units Intracatheter After each dialysis heparin 5,000 Units Subcutaneous 2 times per day lidocaine 1 patch Transdermal Daily melatonin 3 mg Oral Nightly mometasone 2 puff Inhalation Daily nitroglycerin 0.5 inch Topical 4 times per day pantoprazole 40 mg Oral QAM AC sevelamer carbonate 1,600 mg Oral TID WC valsartan 40 mg Oral Daily ROS: Review of systems is as per history of present illness. Otherwise a 14 organ system review of systems was done and is negative. Examination: Vitals as noted General appearance: Sitting up in bed with comfortably. Head/Neck: FROM, supple. Facial puffiness noted. JVD +. Lungs: Reduced air entry right lower infrascapular area with fair air entry on the left cortney e. CV: RRR, no MRGs; normal carotid upstroke and amplitude without bruits. Systolic/diastoli c murmur at the apex. No pericardial rub noted. Abdomen: Soft, non-tender; no masses or HSM. Ascites +. Extremities: No peripheral edema or digital cyanosis Skin: Maculopapular rash on both lower extremities below her shins. Psych: Pleasant demeanor. Neurologic: Alert, awake and oriented to person, place and time. No asterixis. Dialysis access: Left UE AVF with no evidence of malfunction/inflammation. Vital Signs: BP 110/59 | Pulse 80 | Temp 36.9 C (98.5 F) (Oral) | Resp 16 | Ht 1.702 m (5' 7") | Wt 70.7 kg (155 lb 13.8 oz) | LMP 06/04/2017 (Approximate) | SpO2 100% | No | BMI 24.41 kg/m Data evaluation: Lab Results Component Value Date BUN 32 (H) 07/17/2019 EGFR 8 (L) 07/17/2019 NA 135 07/17/2019 K 5.0 (H) 07/17/2019 CL 99 07/17/2019 CO2 28 07/17/2019 PHOS 8.1 (H) 07/17/2019 PHOS 8.4 (H) 07/17/2019 MG 2.5 (H) 07/17/2019 HGB 9.4 (L) 07/17/2019 Lab Results Component Value Date HGB 9.4 (L) 07/17/2019 HGB 9.4 (L) 07/15/2019 HGB 10.6 (L) 04/19/2019 FERRITIN 805 (H) 01/24/2019 Lab Results Component Value Date ANIONGAP 13 07/17/2019 Ct Chest Abdomen Pelvis Wo Contrast 12/11/2018 showed large right pleural effusion with comp ressive atelectasis of the adjacent lung. 2. Mohs act attenuation in the left lung as seen on multiple prior studies 2. Mild splenomegaly. 3. Mild ascites. 4. Atrophic kidneys. 5. Tiny punctate nonobstructing left renal calculus. 6. Mild diffuse body wall edema. Echocardiogram from 12 June 2018 showed ejection fraction of 30 to 35% with restrictive LV diastolic pattern, moderate mitral regurgitation, severe tricuspid regurgitation and severe pulmonary hypertension. Echocardiogram from 12 December 2018 showed Moderately reduced left ventricular systolic fu nction with ejection fraction of 40%. Severe tricuspid regurgitation with severe pulmonary h ypertension Assessment Recommendations and plan: 1. Hypervolemia with congestive heart failure 2. End-stage renal disease on hemodialysis 3. Nonadherence to outpatient dialysis prescription 4. Anemia, chronic renal failure 5. Persistent right pleural (chronic) effusion with atelectasis. Plan to perform UF to bring her closer to dry weight. Followed by discharge or repeat d ialysis on Monday before discharge. Continue current medications for now I discussed with her the concept of hypervolemia and interaction of BP/volume status/medica tions in preserving homeostasis with ESRD. She should be on a 2 gm Na, 2 gm K, 1 gm PO4, 1 gm/kg protein diet. Please dose all medications for an eGFR of less than 15 ml/min/1.73 m2. NSAIDS/SUAREZ 2 inhibitors should be avoided. Aluminum/magnesium containing antacids and magne sium/phosphate containing enemas should be avoided. Fluid should be restricted to less than 1.2 L in a 24 hr period. Strict I/O should be done. Plan of care was discussed with Dr. Reinoso. Cliff Duarte MD 07/17/2019 Portions of my previous notes have been carried over for continuity of chart review/care. She was seen earlier in the day and charting was completed later after rounds. Dictation software, TVtrip, was used which may contain error for similar sounding words. Pe rsonal communication is requested for any clarification. Also please do not construe any information/orders from unsigned notes. Recommendations are solely recommendations and not orders (unless explicitly stated so) and primary ordering authority is with primary team. Prognosis is guarded in view of multiple comorbid illnesses and ESRD including but not limi wilmer to . This is a patient with multiple complex medical problems that required considerable time an d reflection in order to properly evaluate and manage. Optimization of treatment/therapy is the primary goal. Complex analysis and decision making was involved in today's visit and req uired extended time to fully and correctly evaluate this patient's unique problems and desig n a treatment strategy that is best for their specific health problems and circumstances. Sotero Tejeda MD - 07/17/2019 12:53 PM PDT [facility] Adult Hospitalist Progress Note Hospital Day: 3 Patient Summary: Briefly, 24-year-old female with significant past medical history of HSP, end-stage renal disease on hemodialysis occasionally noncompliant (MWF Dr. 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 SUBJECTIVE No acute overnight events. Patient is alert and oriented x3. Patient notes substern al chest pain character burning. Improved from 07/15. Patient denies any nausea or vomiti ng. Tolerating p.o. diet. Progression stable. Patient did receive hemodialysis today. Review of Systems Constitutional: Negative for malaise/fatigue. HENT: Negative for congestion. Eyes: Negative for double vision. Respiratory: Positive for shortness of breath. Cardiovascular: Positive for chest pain. Negative for palpitations. Gastrointestinal: Positive for heartburn. Musculoskeletal: Negative for falls. Neurological: Negative for speech change and focal weakness. Endo/Heme/Allergies: Negative for polydipsia. Psychiatric/Behavioral: Negative for hallucinations. OBJECTIVE Vital Signs: BP 109/64 | Pulse 78 | Temp 36.4 C (97.6 F) (Axillary) | Resp 16 | Ht 1.702 m (5' 7 ") | Wt 70.7 kg (155 lb 13.8 oz) | LMP 06/04/2017 (Approximate) | SpO2 100% | Breastfeed ing No | BMI 24.41 kg/m Physical Exam Vitals signs and nursing note reviewed. Constitutional: Appearance: She is normal weight. She is not toxic-appearing. HENT: Head: Normocephalic. Eyes: Extraocular Movements: Extraocular movements intact. Pupils: Pupils are equal, round, and reactive to light. Neck: Musculoskeletal: Neck supple. Cardiovascular: Rate and Rhythm: Normal rate. Pulses: Normal pulses. Heart sounds: Murmur present. Pulmonary: Breath sounds: Rales present. Abdominal: Palpations: Abdomen is soft. Tenderness: There is no guarding or rebound. Skin: General: Skin is warm. Coloration: Skin is not jaundiced. Neurological: General: No focal deficit present. Mental Status: She is alert and oriented to person, place, and time. Mental status is at baseline. Psychiatric: Mood and Affect: Mood normal. DATA BMP 135 99 32* 92 5.0* 28 6.8* CaMgPhos 8.6 2.5* 8.1*, 8.4* LFT 19 123* 29 3.1* CBC 4.61 9.4* 120* 30.9* Coag 1.2 Last labs from current encounter as of 07/17/19-12:53 Recent Labs 07/16/19 1457 07/16/19 0926 TROPONIN 0.081* 0.065* Imaging: -Imaging reviewed and will be addressed as indicated in the assessment and plan. PROBLEM LIST Principal Problem: Acute on chronic respiratory failure with hypoxia Active Problems: ESRD on hemodialysis Uncontrolled hypertension Recurrent right pleural effusion Anemia in ESRD (end-stage renal disease) Moderate to severe pulmonary hypertension Acute on chronic combined systolic and diastolic CHF (congestive heart failure) Weakness generalized Resolved Problems: * No resolved hospital problems. * IMPRESSION/PLAN: 1. Volume overload/acute on chronic combined congestive heart failure exacerbation: -Active. -Most likely secondary to medical noncompliance/missed hemodialysis secondary to social iss ues. -Hemodynamically stable. -Labs reviewed -Home regimen: Valsartan 40 mg p.o. daily, Toprol-XL 25 mg p.o. daily. Follows outpatient with Dr. Mahmood -Appreciate nephrology (Dr. Duarte) input regarding further inpatient care and management. Will follow further recommendations. -Avoid nephrotoxic agents. -Renally dose medications -Diet: Renal, 2 g low-sodium, 1.2 L fluid restriction -Strict I's and O's -Fluid and salt restriction -Daily weights -Blood pressure control Chest pain: -resolving -No appreciable delta troponin. -Patient is status post right thoracentesis with a total of 1500 cc of dai fluid removed. Postprocedural x-ray demonstrated no findings of pneumothorax. -Body fluid labs indicate transudate of effusion. -We will order 2D echocardiogram. -We will order Nitropaste -Continue with hemodialysis. -Continue telemetry monitoring -Started TUMS -Patient will require follow-up with her established sewage screen operator (Dr. Mahmood) Essential hypertension: -Home regimen: Coreg 12.5 mg p.o. twice daily and valsartan 40 mg daily. -Outpatient patient will likely benefit from transitioning to Entresto. -PRNhydralazine Thrombocytopenia: -Chronic. -Stable, will monitor. Severe tricuspid regurgitation/moderate mitral regurgitation: -Medical management. -Maintain euvolemia DVT prophylaxis: In place Sotero Reinoso MD 12:53 PM 07/17/2019 Cliff Pozo MD - 07/16/2019 6:47 PM PDT [id number] LOS: 2 days To summarize previous records: Dara Weldon is a 24 y.o. woman with oliguric ESRD who follows up with Dr. Jonathan Alonso MD as primary care provider. 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 She is historically non adherent to dialysis/dietary fluid/K/Po4 restriction. She is normally dialyzed on a Monday, Monday, Monday schedule at [facility] using left upper extremity AV fistula. She used to see Dr. Trent Camp but has switched to Dr. Anguiano. She also has combined diastolic/systolic congestive heart failure and was recently hospital ized at [facility] with hypervolemia and right pleural effusion (12/10/18-12/14/18). She has not been adherent to her dialysis prescription and is admitted having missed 2 dial ysis sessions last week and a short dialysis treatment on Monday. She initially went to [facility] complaining of shortness of breath and ches t pain and indicated that she was 30 pounds over her dry weight. From chart review her dry weight is 66.5 kg and she weighed in at 80.6 kg in the hospital o n admission. She was transferred to [facility] for urgent dialysis. She received urgent dialysis last night with 2.3 L ultrafiltration. 07/15/19 HD with UF of 2L. Today 07/16/19 she is hemodynamically stable with no evidence of fever/tachycardia/bradycar cole/severe hypertension or severe hypotension/hypoxia. Hypertension is better controlled. She does still have shortness of breath and chest discomfort. She had uncomplicated UF of 2 L. She had thoracentesis 1.5 L today without complications. CXR post thoracentesis (seen by myself) showed a right pleural effusion with atelectasis. PMH, PSH, Social history reviewed in chart. Allergies and medications reviewed. Previous hi story summarized as above. Prior lab data and imaging reviewed.Patient's old records and lab s were reviewed in detail and summarized. GI cocktail 30 mL Oral Once carvedilol 12.5 mg Oral BID clopidogrel 75 mg Oral Daily diclofenac 4 g Topical 4x Daily heparin (dialysis) 1,000 Units Intravenous Dialysis - once heparin 1,500-6,000 Units Intracatheter After each dialysis heparin 1,500-6,000 Units Intracatheter After each dialysis heparin 5,000 Units Subcutaneous 2 times per day lidocaine 1 patch Transdermal Daily melatonin 3 mg Oral Nightly mometasone 2 puff Inhalation Daily nitroglycerin 0.5 inch Topical 4 times per day pantoprazole 40 mg Oral QAM AC sevelamer carbonate 1,600 mg Oral TID WC valsartan 40 mg Oral Daily heparin (dialysis) 500 Units/hr (07/15/19 1021) ROS: Review of systems is as per history of present illness. Otherwise a 14 organ system review of systems was done and is negative. Examination: Vitals as noted General appearance: Sitting up in bed with comfortably. Head/Neck: FROM, supple. Facial puffiness noted. JVD +. Lungs: Reduced air entry right lower infrascapular area with fair air entry on the left cortney e. CV: RRR, no MRGs; normal carotid upstroke and amplitude without bruits. Systolic/diastoli c murmur at the apex. No pericardial rub noted. Abdomen: Soft, non-tender; no masses or HSM. Ascites +. Extremities: No peripheral edema or digital cyanosis Skin: Maculopapular rash on both lower extremities below her shins. Psych: Pleasant demeanor. Neurologic: Alert, awake and oriented to person, place and time. No asterixis. Dialysis access: Left UE AVF with no evidence of malfunction/inflammation. Vital Signs: BP 119/59 | Pulse 90 | Temp 36.9 C (98.4 F) (Oral) | Resp 18 | Ht 1.702 m (5' 7") | Wt 75.7 kg (166 lb 14.2 oz) | LMP 06/04/2017 (Approximate) | SpO2 94% | N o | BMI 26.14 kg/m Data evaluation: Lab Results Component Value Date BUN 37 (H) 07/15/2019 EGFR 7 (L) 07/15/2019 NA 135 07/15/2019 K 4.9 07/15/2019 CL 100 07/15/2019 CO2 28 07/15/2019 PHOS 7.3 (H) 07/15/2019 MG 2.1 07/15/2019 HGB 9.4 (L) 07/15/2019 Lab Results Component Value Date HGB 9.4 (L) 07/15/2019 HGB 10.6 (L) 04/19/2019 HGB 11.6 04/18/2019 FERRITIN 805 (H) 01/24/2019 Lab Results Component Value Date ANIONGAP 12 07/15/2019 Ct Chest Abdomen Pelvis Wo Contrast 12/11/2018 showed large right pleural effusion with comp ressive atelectasis of the adjacent lung. 2. Mohs act attenuation in the left lung as seen on multiple prior studies 2. Mild splenomegaly. 3. Mild ascites. 4. Atrophic kidneys. 5. Tiny punctate nonobstructing left renal calculus. 6. Mild diffuse body wall edema. Echocardiogram from 12 June 2018 showed ejection fraction of 30 to 35% with restrictive LV diastolic pattern, moderate mitral regurgitation, severe tricuspid regurgitation and severe pulmonary hypertension. Echocardiogram from 12 December 2018 showed Moderately reduced left ventricular systolic fu nction with ejection fraction of 40%. Severe tricuspid regurgitation with severe pulmonary h ypertension Assessment Recommendations and plan: 1. Hypervolemia with congestive heart failure 2. Suboptimally controlled hypertension (Stage 2) 3. End-stage renal disease on hemodialysis 4. Nonadherence to dialysis prescription 5. IAG metabolic acidosis 6. Recurrent right pleural effusion 7. Anemia, chronic renal failure 8. Persistent right pleural (chronic) effusion with atelectasis. Plan to dialyze tomorrow again with UF. Continue current medications for now I discussed with her the concept of hypervolemia and interaction of BP/volume status/medica tions in preserving homeostasis with ESRD. She should be on a 2 gm Na, 2 gm K, 1 gm PO4, 1 gm/kg protein diet. Please dose all medications for an eGFR of less than 15 ml/min/1.73 m2. NSAIDS/SUAREZ 2 inhibitors should be avoided. Aluminum/magnesium containing antacids and magne sium/phosphate containing enemas should be avoided. Fluid should be restricted to less than 1.2 L in a 24 hr period. Strict I/O should be done. Plan of care was discussed with Dr. Reinoso. Cliff Duarte MD 07/16/2019 Portions of my previous notes have been carried over for continuity of chart review/care. She was seen earlier in the day and charting was completed later after rounds. Dictation software, TVtrip, was used which may contain error for similar sounding words. Pe rsonal communication is requested for any clarification. Also please do not construe any information/orders from unsigned notes. Recommendations are solely recommendations and not orders (unless explicitly stated so) and primary ordering authority is with primary team. Prognosis is guarded in view of multiple comorbid illnesses and ESRD including but not limi wilmer to . This is a patient with multiple complex medical problems that required considerable time an d reflection in order to properly evaluate and manage. Optimization of treatment/therapy is the primary goal. Complex analysis and decision making was involved in today's visit and req uired extended time to fully and correctly evaluate this patient's unique problems and desig n a treatment strategy that is best for their specific health problems and circumstances. Sotero Tejeda MD - 07/16/2019 8:02 AM PDT [facility] Adult Hospitalist Progress Note Hospital Day: 2 Patient Summary: Briefly, 24-year-old female with significant past medical history of HSP, end-stage renal d isease on hemodialysis occasionally noncompliant ([facility] Dr. 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 SUBJECTIVE No acute overnight events. Patient is alert and oriented x3. Patient is actively re ceiving hemodialysis at the time of my evaluation. The patient has a tele-sitter at bedside , secondary to depression with assumption of suicidal ideation. Per my review/discussion wi th the patient she has no present suicidal or homicidal ideation. Patient does note subst ernal chest pain characterized as pressure. Context patient states constant nature, wor sened with deep breathing. Not alleviated with antacids. Patient notes this pain has been present since her last admission/discharge in April 2019 and has persisted since then. A ssociated with shortness of breath. Progression stable. Review of Systems Constitutional: Positive for malaise/fatigue. Negative for chills and fever. HENT: Negative for congestion. Eyes: Negative for double vision. Respiratory: Positive for cough and shortness of breath. Cardiovascular: Positive for chest pain. Negative for palpitations. Gastrointestinal: Negative for nausea and vomiting. Genitourinary: Negative for flank pain. Musculoskeletal: Negative for falls. Skin: Negative for itching. Neurological: Negative for speech change and focal weakness. Psychiatric/Behavioral: Positive for depression. Negative for suicidal ideas. OBJECTIVE Vital Signs: BP 143/88 | Pulse 94 | Temp 36.7 C (98 F) (Oral) | Resp 18 | Ht 1.702 m (5' 7") | Wt 77.5 kg (170 lb 13.7 oz) | LMP 06/04/2017 (Approximate) | SpO2 92% | No | BMI 26.76 kg/m Physical Exam Vitals signs and nursing note reviewed. Constitutional: General: She is not in acute distress. Appearance: She is not toxic-appearing. HENT: Head: Normocephalic. Eyes: Pupils: Pupils are equal, round, and reactive to light. Neck: Musculoskeletal: Neck supple. Cardiovascular: Rate and Rhythm: Normal rate. Pulses: Normal pulses. Heart sounds: Murmur present. Pulmonary: Breath sounds: Rales present. Abdominal: General: Bowel sounds are normal. Palpations: Abdomen is soft. Tenderness: There is no guarding or rebound. Skin: General: Skin is warm. Neurological: General: No focal deficit present. Mental Status: She is alert and oriented to person, place, and time. Mental status is at baseline. DATA BMP 135 100 37* 90 4.9 28 7.0* CaMgPhos 9.2 2.1 7.3* LFT 3.1* CBC 5.43 9.4* 103* 30.3* Coag Last labs from current encounter as of 07/16/19-08:02 Imaging: -Imaging reviewed and will be addressed as indicated in the assessment and plan. PROBLEM LIST Principal Problem: Acute on chronic respiratory failure with hypoxia Active Problems: ESRD on hemodialysis Uncontrolled hypertension Recurrent right pleural effusion Anemia in ESRD (end-stage renal disease) Moderate to severe pulmonary hypertension Acute on chronic combined systolic and diastolic CHF (congestive heart failure) Weakness generalized Resolved Problems: * No resolved hospital problems. * IMPRESSION/PLAN: 1. Volume overload/acute on chronic combined congestive heart failure exacerbation: -Most likely secondary to medical noncompliance/missed hemodialysis secondary to social iss ues. -Hemodynamically stable. -Labs reviewed -Home regimen: Valsartan 40 mg p.o. daily, Toprol-XL 25 mg p.o. daily. Follows outpatient with Dr. Mahmood -Appreciate nephrology (Dr. Duarte) input regarding further inpatient care and management. Will follow further recommendations. -Avoid nephrotoxic agents. -Renally dose medications -Diet: Renal, 2 g low-sodium, 1.2 L fluid restriction -Strict I's and O's -Fluid and salt restriction -Daily weights -Blood pressure control Chest pain: -We will order troponin x2 to assess delta troponin. -We will order Nitropaste -Continue with hemodialysis. -Continue telemetry monitoring -Patient will require follow-up with her established sewage screen operator (Dr. Mahmood) -We will also order thoracentesis of the right chest with body fluid labs. Essential hypertension: -Home regimen: Coreg 12.5 mg p.o. twice daily and valsartan 40 mg daily. -Outpatient patient will likely benefit from transitioning to Entresto. -PRN hydralazine Thrombocytopenia: -Chronic. -Stable, will monitor. Severe tricuspid regurgitation/moderate mitral regurgitation: -Medical management. -Maintain euvolemia DVT prophylaxis: In place Sotero Reinoso MD 8:02 AM 07/16/2019 riadna Ariza RN - 07/15/2019 5:38 PM PDTEnd of shift chart check complete. Ariadna Ariza RN 07/15/2019 [id number] liff Duarte MD - 07/15/2019 11:15 AM PDT [id number] LOS: 1 day To summarize previous records: Dara Weldon is a 24 y.o. woman with oliguric ESRD who follows up with Dr. Jonathan Alonso MD as primary care provider. 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 She is historically non adherent to dialysis/dietary fluid/K/Po4 restriction. She is normally dialyzed on a Monday, Monday, Monday schedule at [facility] using left upper extremity AV fistula. She used to see Dr. Trent Camp but has switched to Dr. Anguiano. She also has combined diastolic/systolic congestive heart failure and was recently hospital ized at [facility] with hypervolemia and right pleural effusion (12/10/18-12/14/18). She has not been adherent to her dialysis prescription and is admitted having missed 2 dial ysis sessions last week and a short dialysis treatment on Monday. She initially went to [facility] complaining of shortness of breath and ches t pain and indicated that she was 30 pounds over her dry weight. From chart review her dry weight is 66.5 kg and she weighed in at 80.6 kg in the hospital o n admission. She was transferred to [facility] for urgent dialysis. She received urgent dialysis last night with 2.3 L ultrafiltration. Today 07/15/19 she is hemodynamically stable with no evidence of fever/tachycardia/bradycar cole/severe hypertension or severe hypotension/hypoxia. Hypertension is better controlled. She does still have shortness of breath and chest discomfort. She is seen on dialysis with dialysis nurse, Latia. No complication during dialysis identified. Dialysis access is working well. Lab review from this morning received worsening anemia with hemoglobin dropping down to 9.4 with a normal white cell count and stable thrombocytopenia. She had persistent hypoalbuminemia. PMH, PSH, Social history reviewed in chart. Allergies and medications reviewed. Previous hi story summarized as above. Prior lab data and imaging reviewed.Patient's old records and lab s were reviewed in detail and summarized. carvedilol 12.5 mg Oral BID heparin 1,500-6,000 Units Intracatheter After each dialysis heparin 5,000 Units Subcutaneous 2 times per day melatonin 3 mg Oral Nightly pantoprazole 40 mg Oral QAM AC heparin (dialysis) 500 Units/hr (07/15/19 1021) ROS: Review of systems is as per history of present illness. Otherwise a 14 organ system review of systems was done and is negative. Examination: Vitals as noted General appearance: Sitting up in bed with shortness of breath at rest. Head/Neck: FROM, supple. Facial puffiness noted. JVD +. Lungs: Reduced air entry right lower infrascapular area with fair air entry on the left cortney e. CV: RRR, no MRGs; normal carotid upstroke and amplitude without bruits. Systolic/diastoli c murmur at the apex. No pericardial rub noted. Abdomen: Soft, non-tender; no masses or HSM. Ascites +. Extremities: No peripheral edema or digital cyanosis Skin: Maculopapular rash on both lower extremities below her shins. Psych: Pleasant demeanor. Neurologic: Alert, awake and oriented to person, place and time. No asterixis. Dialysis access: Left UE AVF with no evidence of malfunction/inflammation. Vital Signs: BP 152/82 | Pulse 90 | Temp 36.6 C (97.9 F) (Oral) | Resp 12 | Ht 1.702 m (5' 7") | Wt 81.4 kg (179 lb 7.3 oz) | LMP 06/04/2017 (Approximate) | SpO2 96% | No | BMI 28.11 kg/m Data evaluation: Lab Results Component Value Date BUN 37 (H) 07/15/2019 EGFR 7 (L) 07/15/2019 NA 135 07/15/2019 K 4.9 07/15/2019 CL 100 07/15/2019 CO2 28 07/15/2019 PHOS 7.3 (H) 07/15/2019 MG 2.1 07/15/2019 HGB 9.4 (L) 07/15/2019 Lab Results Component Value Date HGB 9.4 (L) 07/15/2019 HGB 10.6 (L) 04/19/2019 HGB 11.6 04/18/2019 FERRITIN 805 (H) 01/24/2019 Lab Results Component Value Date ANIONGAP 12 07/15/2019 Ct Chest Abdomen Pelvis Wo Contrast 12/11/2018 showed large right pleural effusion with comp ressive atelectasis of the adjacent lung. 2. Mohs act attenuation in the left lung as seen on multiple prior studies 2. Mild splenomegaly. 3. Mild ascites. 4. Atrophic kidneys. 5. Tiny punctate nonobstructing left renal calculus. 6. Mild diffuse body wall edema. Echocardiogram from 12 June 2018 showed ejection fraction of 30 to 35% with restrictive LV diastolic pattern, moderate mitral regurgitation, severe tricuspid regurgitation and severe pulmonary hypertension. Echocardiogram from 12 December 2018 showed Moderately reduced left ventricular systolic fu nction with ejection fraction of 40%. Severe tricuspid regurgitation with severe pulmonary hypertension Assessment Recommendations and plan: 1. Hypervolemia with congestive heart failure 2. Suboptimally controlled hypertension (Stage 2) 3. End-stage renal disease on hemodialysis 4. Nonadherence to dialysis prescription 5. IAG metabolic acidosis 6. Recurrent right pleural effusion 7. Anemia, chronic renal failure Plan to dialyze today and for 3 to 4 days back to back (short daily dialysis) with UF. Continue current medications for now I discussed with her the concept of hypervolemia and interaction of BP/volume status/medica tions in preserving homeostasis with ESRD. She should be on a 2 gm Na, 2 gm K, 1 gm PO4, 1 gm/kg protein diet. Please dose all medications for an eGFR of less than 15 ml/min/1.73 m2. NSAIDS/SUAREZ 2 inhibitors should be avoided. Aluminum/magnesium containing antacids and magne sium/phosphate containing enemas should be avoided. Fluid should be restricted to less than 1.2 L in a 24 hr period. Strict I/O should be done. Plan of care was discussed with Dr. Horvath. Cliff Duarte MD 07/15/2019 Portions of my previous notes have been carried over for continuity of chart review/care. She was seen earlier in the day and charting was completed later after rounds. Dictation software, TVtrip, was used which may contain error for similar sounding words. Pe rsonal communication is requested for any clarification. Also please do not construe any information/orders from unsigned notes. Recommendations are solely recommendations and not orders (unless explicitly stated so) and primary ordering authority is with primary team. Prognosis is guarded in view of multiple comorbid illnesses and ESRD including but not limi wilmer to . This is a patient with multiple complex medical problems that required considerable time an d reflection in order to properly evaluate and manage. Optimization of treatment/therapy is the primary goal. Complex analysis and decision making was involved in today's visit and req uired extended time to fully and correctly evaluate this patient's unique problems and desig n a treatment strategy that is best for their specific health problems and circumstances. Jeronimo Gray MD - 07/15/2019 8:48 AM PDT Service: Hospitalist Daily Progress Note Dara Weldon 24 y.o. : 1995 SEX: female PCP: Jonathan Alonso MD Hospital Day: LOS: 1 SUBJECTIVE Patient Summary: Patient is a 24 year old female with past medical history of HTN, Chronic Combined CHF, Sev ere Pulmonary Hypertension, IgA Vasculitis, ESRD on Hemodialysis occasionally noncompliant who was admitted as a transfer from [facility] due to shortness of breath. She had missed all of her regular hemodialysis seesions in the past one week. She w as feeling weak and have noted 30 pound weight gain in the past few weeks. Recently she repo rted feeling stressed due to family related issues and deaths in the family. She also noted difficulty in breathing at rest with worsening symptoms in the past week. Her oxygen saturat ion was 74% on room air upon presentation which improved to 95% on 2 litre's of oxygen via n jenny canula. Her initial labs like CBC showed low normal H&H of 9.4 and elevated Creatinine of 7 consistent with ESRD. Nephrology services consulted and hemodialysis was started. She h ad absent breath sounds on the right side and CXR ordered to further evaluate. Events Overnight: Patient seen and examined. Overnight events noted. Patient was seen awake and alert. She re ported feeling slightly better after initiating hemodialysis. She denied any worsening short ness of breath and saturating fair at 3 to 4 litre's. No headaches, nausea, vomiting, chest pain, or cough at this time. She reported weakness and fatigue but no abdominal pain, diarrh ea or constipation. Appetite is fair and improving. Remained afebrile. Scheduled Medications acetaminophen, 650 mg, Oral, Q4H PRN albumin, 12.5 g, Intravenous, Dialysis - PRN albuterol, 2 puff, Inhalation, Q6H PRN aluminum & magnesium hydroxide-simethicone, 30 mL, Oral, Q4H PRN carvedilol, 12.5 mg, Oral, BID clonazePAM, 0.25 mg, Oral, Daily PRN clopidogrel, 75 mg, Oral, Daily heparin (dialysis), 500 Units/hr, Intravenous, Dialysis - Continuous heparin, 1,500-6,000 Units, Intracatheter, After each dialysis heparin, 5,000 Units, Subcutaneous, 2 times per day hydrALAZINE, 10 mg, Intravenous, Q4H PRN melatonin, 3 mg, Oral, Nightly mometasone, 2 puff, Inhalation, Daily ondansetron, 4 mg, Oral, Q6H PRN ondansetron, 4 mg, Intravenous, Q6H PRN oxyCODONE, 5-10 mg, Oral, Q4H PRN pantoprazole, 40 mg, Oral, QAM AC promethazine, 12.5 mg, Intravenous, Q6H PRN promethazine, 25 mg, Oral, Q8H PRN sevelamer carbonate, 1,600 mg, Oral, TID WC valsartan, 40 mg, Oral, Daily Continuous Infusions . PRN Medications Current Facilty-Administered PRN Medications Ordered in [facility] Medication Dose Route Frequency Provider Last Rate Last Dose acetaminophen (TYLENOL) tablet 650 mg 650 mg Oral Q4H PRN Sotero Reinoso MD albumin 25% IVPB 12.5 g 12.5 g Intravenous Dialysis - PRN Cliff Duarte MD albuterol 90 mcg/puff inhaler 2 puff 2 puff Inhalation Q6H PRN Sotero Reinoso MD aluminum & magnesium hydroxide-simethicone (MAALOX PLUS REGULAR STRENGTH) 200-200-20 mg /5 mL suspension 30 mL 30 mL Oral Q4H PRN Sotero Reinoso MD clonazePAM (klonoPIN) tablet 0.25 mg 0.25 mg Oral Daily PRN Sotero Reinoso MD hydrALAZINE (APRESOLINE) injection 10 mg 10 mg Intravenous Q4H PRN Sotero Reinoso MD 10 mg at 07/14/19 2314 ondansetron (ZOFRAN ODT) disintegrating tablet 4 mg 4 mg Oral Q6H PRN Sotero Reinoso MD 4 mg at 07/14/19 2337 ondansetron (ZOFRAN) injection 4 mg 4 mg Intravenous Q6H PRN Sotero Reinoso MD 4 m g at 07/15/19 0639 oxyCODONE (ROXICODONE) tablet 5-10 mg 5-10 mg Oral Q4H PRN Jeronimo Horvath MD 5 mg at 07/15/19 1558 promethazine (PHENERGAN) (IV ONLY) injection 12.5 mg 12.5 mg Intravenous Q6H PRN Jeronimo Horvath MD 12.5 mg at 07/15/19 1207 promethazine (PHENERGAN) tablet 25 mg 25 mg Oral Q8H PRN Sotero Reinoso MD Allergy: Allergies Allergen Reactions Adhesive & Tape Rash Certain tapes Fentanyl Itching Iodinated Diagnostic Agents Itching Pt c/o face itching during fistulagram Methylphenidate Other (See Comments) Patient says skin was crawling Reglan [Metoclopramide] Itching Lisinopril cough OBJECTIVE Vital Signs: Vitals: 07/15/19 1556 BP: 144/75 Pulse: 84 Resp: 18 Temp: 36.4 C (97.6 F) Intake/Output Summary (Last 24 hours) at 07/15/2019 1642 Last data filed at 07/15/2019 1601 Gross per 24 hour Intake 470 ml Output 4300 ml Net -3830 ml Examination: Constitutional: Patient is alert and oriented x 3. Appears weak but not in acute distress. HEENT: Head: Normocephalic and Atraumatic. Nose: Nose normal. Mouth/Throat: Oropharynx is clear and moist. Eyes: No conjunctiva injection. EOM Intact. PERRLA. No scleral icterus. Neck: Neck supple. No JVD present. No tracheal deviation present. No thyromegaly Cardiovascular: Regular rate and rhythm, + Murmur heard and no friction rub. Pulmonary/Chest: Absent breath sounds on Right and mostly clear to auscultation BRENDA with f ew rales at bases. No wheezes or rhonchi. Abdominal: Soft, BS present, no distension, no ascites. No rebound tenderness and no guardi ng. Musculoskeletal: Moves all limbs, No difficulty in walking and no joint tenderness. Trace pedal edema. Neurological: No Focal neurologic deficits, + Weakness, No CN deficits. Skin: Skin is warm and dry. + Mild chronic LE erythema and vascular skin changes. No ecchy clint, or abrasions. Psychiatric: No Confusion, No agitation, Reactive affect and Judgement is stable. LABS: Recent Results (from the past 24 hour(s)) ECG 12 lead Result Value Ref Range VENTRICULAR RATE EKG 93 BPM ATRIAL RATE 93 BPM P-R INTERVAL 178 ms QRS DURATION 86 ms Q-T INTERVAL 372 ms Q-T INTERVAL (CORRECTED) 462 ms P WAVE AXIS 32 degrees QRS AXIS -34 degrees T AXIS 67 degrees INTERPRETATION TEXT Sinus rhythm with Fusion complexes Left axis deviation Abnormal ECG When compared with ECG of 22-APR-2019 08:19, Fusion complexes are now Present T wave inversion no longer evident in Lateral leads This ECG contains Unconfirmed Interpretation Statements. See ED Record for Physician Inter pretation. Confirmed by MUSE READ ONLY, -COMPUTER ([id number]), editor magazine Jaymie Thakur ([id number]) on 07/15/2019 3:08 :34 AM Renal Function Panel Result Value Ref Range Na 135 135 - 145 mmol/L K 4.9 3.5 - 4.9 mmol/L Cl 100 99 - 109 mmol/L CO2 28 23 - 32 mmol/L Anion Gap 12 5 - 20 mmol/L Glucose 90 65 - 99 mg/dL BUN 37 (H) 8 - 25 mg/dL Creatinine 7.0 (H) 0.50 - 1.00 mg/dL Calcium 9.2 8.5 - 10.5 mg/dL Albumin 3.1 (L) 3.6 - 5.0 g/dL Phosphorus 7.3 (H) 2.3 - 4.8 mg/dL Estimated GFR 7 (L) >60 mL/min/1.73m2 CBC with Differential Result Value Ref Range WBC 5.43 3.80 - 11.00 K/uL RBC 2.69 (L) 3.70 - 5.10 M/uL Hemoglobin 9.4 (L) 11.3 - 15.5 g/dL Hematocrit 30.3 (L) 34.0 - 46.0 % MCV 112.6 (H) 80.0 - 100.0 fl MCH 34.9 (H) 27.0 - 34.0 pg MCHC 31.0 (L) 32.0 - 35.5 g/dL RDW-SD 57.0 (H) 37 - 53 fl Platelet Count 103 (L) 150 - 400 K/uL MPV 11.9 fl Diff Type AUTOMATED % nRBC 0.0 0 /100WBC % Neutrophils 72.50 % IMMATURE GRANULOCYTE 0.20 % % Lymphocytes 9.40 % Monocyte % 6.40 % Eosinophils % 10.90 % Basophils % 0.60 % Neutrophils, Absolute 3.94 1.90 - 7.40 K/uL IMMATURE GRANS AB 0.01 0.00 - 0.07 K/uL Absolute Lymphocytes 0.51 (L) 1.00 - 3.90 K/uL Absolute Monocytes 0.35 0.00 - 0.80 K/uL Eosinophils, Absolute 0.59 (H) 0.00 - 0.50 K/uL Basophils, Absolute 0.03 0.00 - 0.10 K/uL Magnesium Result Value Ref Range Magnesium 2.1 1.7 - 2.4 mg/dL PROBLEM LIST Principal Problem: Acute on chronic respiratory failure with hypoxia Active Problems: ESRD on hemodialysis Recurrent right pleural effusion Acute on chronic combined systolic and diastolic CHF (congestive heart failure) Anemia in ESRD (end-stage renal disease) Moderate to severe pulmonary hypertension Uncontrolled hypertension Weakness generalized ASSESSMENT & PLAN Acute on Chronic Respiratory Failure with Hypoxia: Multifactorial, due to CHF, Pleural Effu arturo and non compliance with Hemodialysis. She is currently saturating fair on 3-4 litre's v ia nasal canula, will continue to monitor and titrate O 2 to maintain saturation above 90%. Acute on Chronic Combined Systolic, Diastolic CHF Exacerbation: Last echo showed an EF of 4 0% with Diastolic dysfunction and Pulmonary hypertension. She is improving and responding to hemodialysis, will continue HD daily for ultra filtration per Nephrology services. Will ana ck CXR and plan for right sided thoracentesis if needed. Will continue Coreg and Valsartan a t home dose and monitor progress. Recurrent Right Pleural Effusion: Likely due to CHF exacerbation, non compliance with hemod ialysis and medications. Will check CXR and proceed with ultrasound guided thoracentesis nadir orrow to help further alleviate her symptoms. End Stage Renal Disease on hemodialysis: Chronic and secondary to IgA Vasculitis, she has b een noncompliant with her hemodialysis sessions which had led to this hospitalization and sh e was previously admitted with CHF exacerbations for similar reasons. She was educated and encouraged to comply with her hemodialysis regularly as recommended by Nephrology services t o prevent future risks and complications. Dr. Duarte is on board and managing hemodialysis, will avoid nephrotoxins and monitor BMP. Chronic Moderate Pulmonary Hypertension: Last echo in 2018 showed a pressure of 71 mmHg, is also contributing to her shortness of breath symptoms. Continue hemodialysis, resume Valsa rtan 40 mg daily and monitor. Hypertension: Blood pressure is stable and improving, will continue Coreg 12.5 mg BID and r esume Valsartan 40 mg daily and monitor hemodynamics. Anemia in Chronic Kidney Disease: Peripheral Vascular Disease: Chronic with H&H of 9.4 this AM. Will resume oral Iron and no need for blood transfusions at this time. Generalized Weakness / Debility: Multifactorial, secondary CHF and deconditioning. Will in volve PT/OT services when stable and improved and follow their recommendations. DVT prophylaxis with SCD's and Heparin. Discharge plans in another 2 to 3 days if remains stable and improved. Jeronimo Horvath MD 07/15/2019 documented in t his encounter H&P Notes Sotero Reinoso MD - 07/14/2019 5:17 PM PDTFormatting of this note might be different fr om the original. Patient Name: Dara Weldon Date of Admission: 07/14/2019 Referring Provider: Dr. Zuniga Source of Information: patient-Reliability fair. Chief Complaint: Shortness of breath HPI: 24-year-old female with significant past medical history of IgA vasculitis, end-stage renal disease on hemodialysis occasionally noncompliant (M[facility] Dr. Anguiano) complicated with va scular access thrombosis status post stent previously on Plavix, essential hypertension, chr onic combined congestive heart failure, severe pulmonary hypertension, cor pulmonale, modera te MR/severe TR regurgitation and other comorbidities, who was discharged from [facility] on with a chief complaint of acute on chronic combined heart failure exacerbation/volume ov erload secondary to missed dialysis treatment who [facility] [facility] on 07/13 via EMS for shor tness of breath secondary to missed hemodialysis session. As per discussion with the patient at bedside, she notes otherwise being in her usual state of health, until approximately 1 week prior to admission when the patient notes missing h er hemodialysis session on Monday and Monday of this week and having a shortened session on Monday (approximately 2 hours). Associated with 30 pound weight gain, chest pain upper s ternal region fatigue, malaise and weakness. Context patient states she missed hemodial ysis session secondary to her uncle passing and other social issues. The patient symptoms p rogressively worsen at which point she presented to [place] [facility] for further evaluation and management. In the ER, the patient was found to be hypoxic saturating 74% on room air pat ient was transferred to [facility] ER for higher level of care as [facility] does not hav e hemodialysis, available at this time. In the [facility], hemodynamically stable. O2 saturation 95% on 2 L/min. Laboratory results r geovany. ER physician contacted and spoke with on-call energy projects lead. Hospitalist was ronald booker for further inpatient care and management admission for volume overload secondary to missed hemodialysis. Review of Systems Constitutional: Negative for chills and fever. HENT: Negative for nosebleeds. Eyes: Negative for photophobia. Respiratory: Positive for shortness of breath. Cardiovascular: Negative for chest pain and palpitations. Gastrointestinal: Positive for nausea. Negative for abdominal pain and vomiting. Musculoskeletal: Negative for falls. Neurological: Negative for speech change and focal weakness. Endo/Heme/Allergies: Negative for polydipsia. Psychiatric/Behavioral: Positive for substance abuse. Negative for hallucinations. PMH: Past Medical History: Diagnosis Date Asthma Bacteremia due to Gram-positive bacteria 12/12/2018 Clotted dialysis access ([facility]) 2014 Congestive heart failure (HCC) ESRD (end stage renal disease) (HCC) HSP (Henoch-Schonlein purpura) nephritis (HCC) 1988 Hypertension Pericardial effusion without cardiac tamponade 11/07/2018 PSH: Past Surgical History: Procedure Laterality Date ABDOMEN SURGERY AV FISTULA REPAIR 02/24/2014 LEFT Radical Cephalic Fistula Creation; Laterality: Left; Surgeon: Blake Chavarria MD ; Location: [facility] MAIN OR AV FISTULA REPAIR Left 03/07/2014 Procedure: AV FISTULA - GRAFT REPAIR/REVISION; Surgeon: Rik Simon MD; Location: [facility] OR; Service: Vascular; Laterality: Left; biopsy of kidney age 10 DIALYSIS FISTULA CREATION 04/08/2014 Procedure: DIALYSIS CATHETER - INSERTION; Surgeon: Rik Simon MD; Location: [facility] OR ; Service: Vascular; Laterality: N/A; tunneled [...] Simon MD; Location: [facility] MAIN OR; Service: Vascular; Laterality: Left; OTHER SURGICAL HISTORY Left 04/08/2014 AV FISTULA PLACEMENT - Procedure: AV FISTULA; Surgeon: Rik Simon MD; Location: [facility]; Service: Vascular; Laterality: Left; cephalic OTHER SURGICAL HISTORY Left 03/07/2014 DECLOT GRAFT - Procedure: GRAFT - DECLOT; Surgeon: Rik Simon MD; Location: [facility] OR ; Service: Vascular; Laterality: Left; peritoneal catheter Medications: No current facility-administered medications on file prior to encounter. Current Outpatient Medications on File Prior to Encounter Medication Sig Dispense Refill albuterol 90 mcg/puff inhaler Inhale 2 puffs into the lungs every 6 hours as needed for Wheezing. carvedilol (COREG) 12.5 mg tablet Take 1 tablet by mouth 2 times daily. 60 tablet 0 citalopram (CELEXA) 20 mg tablet Take 1 tablet by mouth Daily. 30 tablet 5 clonazePAM (KLONOPIN) 0.5 mg tablet Take 0.5 tablets by mouth Daily as needed for Anxie ty (on hemodialysis days). 3 tablet 0 clopidogrel (PLAVIX) 75 mg tablet Take 1 tablet by mouth Daily. 30 tablet 4 doxercalciferol (HECTOROL) 2 mcg/mL injection Inject 0.5 mLs into the vein Three times a week. Per dialysis clinic protocol (Patient taking differently: Inject 1.5 mcg into the ve in Three times a week. Per dialysis clinic protocol) epoetin jenna (EPOGEN) 20,000 units/mL injection Inject 0.4 mLs (8,000 Units total) into the skin every 7 days. etelcalcetide (PARSABIV) 2.5 mg/0.5 mL injection Inject 2.5 mg into the vein Three time s a week. fluticasone (FLOVENT HFA) 110 mcg/puff inhaler Inhale 1 puff into the lungs 2 times beck ly. HYDROcodone-acetaminophen (NORCO) 5-325 mg per tablet Take 1 tablet by mouth every 6 ho urs as needed. 20 tablet 0 iron sucrose (VENOFER) 20 mg/mL injection Inject 2.5 mLs into the vein Once a week. ondansetron (ZOFRAN) 4 mg tablet Take 4 mg by mouth 3 (three) times daily as needed for Nausea. pantoprazole (PROTONIX) 40 mg tablet Take 40 mg by mouth every morning before breakfast . promethazine (PHENERGAN) 25 mg tablet Take 1 tablet by mouth every 8 hours as needed. 3 0 tablet 0 valsartan (DIOVAN) 40 mg tablet Take 1 tablet by mouth Daily. 90 tablet 3 Allergies: Allergies Allergen Reactions Adhesive & Tape Rash Certain tapes Fentanyl Itching Iodinated Diagnostic Agents Itching Pt c/o face itching during fistulagram Methylphenidate Other (See Comments) Patient says skin was crawling Reglan [Metoclopramide] Itching Lisinopril cough FH: family history includes Alcohol abuse in her father; Heart disease in her mother; High bloo d pressure in her father; Hypertension in her father; Seizures in her mother. SH: reports that she quit smoking about 18 months ago. She started smoking about 2 years ago. She smoked 0.50 packs per day. She has never used smokeless tobacco. She reports current dr ug use. Drug: Marijuana. She reports that she does not drink alcohol. Physical Exam: BP (!) 159/118 Comment: RN notified | Pulse 98 | Temp 36.5 C (97.7 F) (Oral) | Resp 1 6 | SpO2 95% Physical Exam Vitals signs reviewed. Constitutional: General: She is not in acute distress. HENT: Head: Normocephalic. Eyes: Pupils: Pupils are equal, round, and reactive to light. Neck: Musculoskeletal: Neck supple. Cardiovascular: Rate and Rhythm: Normal rate. Pulmonary: Effort: No respiratory distress. Abdominal: General: Bowel sounds are normal. Tenderness: There is no guarding or rebound. Skin: General: Skin is warm. Neurological: General: No focal deficit present. Mental Status: She is alert and oriented to person, place, and time. Mental status is at baseline. Labs: Reviewed. Imaging: Imaging reviewed and will be addressed as indicated in the assessment and plan. ACTIVE COMORBIDITIES: Active comorbid conditions include: - CHF; acute on chronic; combined diastolic & systolic - hypertension; secondary; due to renovascular - asthma - renal disease; CKD; ESRD - Drugs/Alcohol/Tobacco - substance abuse Problem List: Principal Problem: Acute hypoxemic respiratory failure Active Problems: ESRD on hemodialysis History of Henoch-Schonlein purpura Anemia in ESRD (end-stage renal disease) Moderate to severe pulmonary hypertension Acute on chronic combined systolic and diastolic CHF (congestive heart failure) Resolved Problems: * No resolved hospital problems. * Assessment and Plan: 1. Volume overload/acute on chronic combined congestive heart failure exacerbation: -Most likely secondary to medical noncompliance/missed hemodialysis. -Hemodynamically stable we will continue to monitor. -Labs reviewed -Home regimen: Valsartan 40 mg p.o. daily, Toprol-XL 25 mg p.o. daily. Follows outpatient with Dr. Mahmood -Appreciate nephrology (Dr. Duarte) input regarding further inpatient care and management. Will follow further recommendations. -Avoid nephrotoxic agents. -Renally dose medications -Diet: Renal, 2 g low-sodium, 1.2 L fluid restriction -Strict I's and O's -Fluid and salt restriction -Daily weights -Blood pressure control Essential hypertension: -Home regimen: Coreg 12.5 mg p.o. twice daily and valsartan 40 mg daily -PRN hydralazine Thrombocytopenia: -Chronic. -Stable, will monitor. Severe tricuspid regurgitation/moderate mitral regurgitation: -Medical management. -Maintain euvolemia DVT prophylaxis: In place Prior Sotero Reinoso MD 07/14/2019 I believe the patient will require a minimum of 2 midnights for appropriate medical managem ent and safe discharge planning. Kindly, see daily progress notes for further details.Elect ronically signed by Sotero Reinoso MD at 07/14/2019 8:12 PM PDTdocumented in this encount er Consult Notes Cliff Duarte MD - 07/14/2019 9:02 PM PDTAssociated Order(s): PHONE CONSULT - [facility] [id number] LOS: 0 days CHIEF COMPLAINT: I am heavy HISTORY OF PRESENT ILLNESS: Dara Weldon is a 24 y.o. woman with oliguric ESRD who follows up with Dr. Jonathan Alonso MD as primary care provider. 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 She is historically non adherent to dialysis/dietary fluid/K/Po4 restriction. She is normally dialyzed on a Monday, Monday, Monday schedule at [facility] using left upper extremity AV fistula. She used to see Dr. Trent Camp but has switched to Dr. Anguiano. She also has combined diastolic/systolic congestive heart failure and has had recurrent hos pitalizations at [facility] with hypervolemia and right pleural effusion (12/10/18-12/14/18). She swanson s not been adherent to her dialysis prescription. I reviewed her dialysis history last weeks. She last went for dialysis for Monday. She came to ED with chest pain/shortness of breath. She has not been adherent to her dialysis prescription and is admitted having missed 2 dial ysis sessions last week and a short dialysis treatment on Monday. She initially went to [facility] complaining of shortness of breath and c hest pain and indicated that she was 30 pounds over her dry weight. From chart review her dry weight is 66.5 kg and she weighed in at 80.6 kg in the hospital o n admission. She was transferred to [facility] for urgent dialysis. CXR done at [facility] had shown right pleural effusion and pulmonary vascular congestion. On lab work she was hyperkalemic with K of 5.2. In ED she was markedly hypertensive. Arrangement was made for urgent dialysis tonight with acute HD team. PMH, PSH, Social history reviewed in chart. Allergies and medications reviewed. Previous hi story summarized as above. Prior lab data and imaging reviewed.Patient's old records and lab s were reviewed in detail and summarized. ROS: Review of systems is as per history of present illness. Otherwise a 14 organ system review of systems was done and is negative. Examination: Vitals as noted General appearance: Sitting up in bed with shortness of breath at rest. Head/Neck: FROM, supple. Facial puffiness noted. JVD +. Lungs: Reduced air entry right lower infrascapular area with fair air entry on the left cortney e. CV: RRR, no MRGs; normal carotid upstroke and amplitude without bruits. Systolic/diastoli c murmur at the apex. No pericardial rub noted. Abdomen: Soft, non-tender; no masses or HSM. Ascites +. Extremities: No peripheral edema or digital cyanosis Skin: no rash, lesions or ulcers Psych: Pleasant demeanor. Neurologic: Alert, awake and oriented to person, place and time. No asterixis. Dialysis access: Left UE AVF with no evidence of malfunction/inflammation. Prior to Admission medications Medication Sig Start Date End Date Taking? Authorizing Provider albuterol-ipratropium 2.5-0.5 mg/3 mL SOLN Take 3 mLs by nebulization. Historical Provid MD ramonita carvedilol (COREG) 6.25 mg tablet Take 1 tablet by mouth 2 times daily. 01/10/19 Paty ann, citalopram (CELEXA) 20 mg tablet Take 1 tablet by mouth Daily. 01/11/19 Emanuel Howard clonazePAM (KLONOPIN) 0.5 mg tablet Take 0.5 tablets by mouth Daily as needed for Anxiety ( on hemodialysis days). 01/10/19 Paty Kline DO clopidogrel (PLAVIX) 75 mg tablet Take 1 tablet by mouth Daily. 10/23/18 Gerber Pearson MD doxercalciferol (HECTOROL) 2 mcg/mL injection Inject 0.5 mLs into the vein Three times a we ek. Per dialysis clinic protocol Patient taking differently: Inject 1.5 mcg into the vein Three times a week. Per dialysis c linic protocol 02/26/18 Jorje Camp, epoetin jenna (EPOGEN) 20,000 units/mL injection Inject 0.4 mLs (8,000 Units total) into the skin every 7 days. 07/03/13 Historical Provider, etelcalcetide (PARSABIV) 2.5 mg/0.5 mL injection Inject 2.5 mg into the vein Three times a week. Historical Provider, iron sucrose (VENOFER) 20 mg/mL injection Inject 2.5 mLs into the vein Once a week. 09/12/14 Daniela Ibarra MD ondansetron (ZOFRAN) 4 mg tablet Take 4 mg by mouth 3 (three) times daily as needed for Gm sea. Historical Provider, pantoprazole (PROTONIX) 40 mg tablet Take 40 mg by mouth every morning before breakfast. Historical Provider, promethazine (PHENERGAN) 25 mg tablet Take 1 tablet by mouth every 6 (six) hours as needed for Nausea or Vomiting (non-resposive to zofran). 07/24/18 Historical Provider, sevelamer carbonate (RENVELA) 800 mg tablet Take 2 tablets by mouth 3 (three) times daily w ith meals and 2 tablet with snacks twice daily 06/01/18 06/01/19 Historical Provider, valsartan (DIOVAN) 40 mg tablet Take 1 tablet by mouth Daily. 01/22/19 Carolina Mahmood DO Vital Signs: BP (!) 179/113 | Pulse 98 | Temp 36.5 C (97.7 F) (Oral) | Resp 16 | Wt 80.6 kg (177 lb 11.1 oz) | SpO2 97% | BMI 27.83 kg/m Data evaluation: Lab Results Component Value Date BUN 28 (H) 04/22/2019 EGFR 8 (L) 04/22/2019 NA 139 04/22/2019 K 4.2 04/22/2019 CL 101 04/22/2019 CO2 32 04/22/2019 PHOS 8.4 (H) 04/18/2019 MG 2.2 01/26/2019 HGB 10.6 (L) 04/19/2019 Lab Results Component Value Date ANIONGAP 10 04/22/2019 Ct Chest Abdomen Pelvis Wo Contrast 12/11/2018 showed large right pleural effusion with comp ressive atelectasis of the adjacent lung. 2. Mohs act attenuation in the left lung as seen on multiple prior studies 2. Mild splenomegaly. 3. Mild ascites. 4. Atrophic kidneys. 5. Tiny punctate nonobstructing left renal calculus. 6. Mild diffuse body wall edema. Echocardiogram from 12 June 2018 showed ejection fraction of 30 to 35% with restrictive LV diastolic pattern, moderate mitral regurgitation, severe tricuspid regurgitation and severe pulmonary hypertension. Echocardiogram from 12 December 2018 showed Moderately reduced left ventricular systolic fu nction with ejection fraction of 40%. Severe tricuspid regurgitation with severe pulmonary hypertension Assessment Recommendations and plan: 1. Hypervolemia with congestive heart failure 2. Suboptimally controlled hypertension (Stage 2) 3. End-stage renal disease on hemodialysis 4. Nonadherence to dialysis prescription 5. IAG metabolic acidosis 6. Hyperkalemia 7. Recurrent right pleural effusion 8. Anemia, chronic renal failure She has oliguric ESRD as per PMH who is admitted with recurrent hypervoelmia/pleural effusi on with non adherence to dialysis prescription/dietary salt/fluid non adherence. Hyperkalemia is secondary to missed dialysis. ESRD is severe and established. Access is working OK. Plan to dialyze today and for 3 to 4 days back to back (short daily dialysis) with UF. I discussed with her the concept of hypervolemia and interaction of BP/volume status/medica tions in preserving homeostasis with ESRD. She should be on a 2 gm Na, 2 gm K, 1 gm PO4, 1 gm/kg protein diet. Please dose all medications for an eGFR of less than 15 ml/min/1.73 m2. NSAIDS/SUAREZ 2 inhibitors should be avoided. Aluminum/magnesium containing antacids and magne sium/phosphate containing enemas should be avoided. Fluid should be restricted to less than 1.2 L in a 24 hr period. Strict I/O should be done. Plan of care was discussed with . I thank Dr Zuniga for giving me the opportunity to take part in her care with multiple complex medical problems. Do not hesitate to contact me if you have any questions. Cliff Duarte MD 07/14/2019 She was seen earlier in the day and charting was completed later after rounds. Dictation software, TVtrip, was used which may contain error for similar sounding words. Pe rsonal communication is requested for any clarification. Also please do not construe any information/orders from unsigned notes. Recommendations are solely recommendations and not orders (unless explicitly stated so) and primary ordering authority is with primary team. Prognosis is guarded in view of multiple comorbid illnesses and ESRD including but not limi wilmer to . [facility] Nadia Luz, - 07/14/2019 4:05 PM PDTFormatting of this note might be different from the or iginal. [facility] History of Present Illness Patient Identification Dara Weldon is a 24 y.o. female. Patient information was obtained from patient History/Exam limitations: none. Patient presented to the Emergency Department by: Ambulance Chief Complaint Chief Complaint Patient presents with Medical Problem (Major) needs dialysis, transfer from [facility], labs done, not available there today. Patient is a 24 y.o. female who presents to the ED with a chief complaint of shortness of breath. Pt is ESRD on dialysis MWF and is a pt of Dr. Christine. Pt states she missed dialysis on and and had a shortened session of around 2 hours on Monday. States she has gained ~ 30 lbs of water weight. Denies any nausea/vomiting/fever/chills. Pt states she has also had chest pain in the upper sternal region worse over the last several days. Has also had to inc rease oxygen from 2L NC to 4L NC. Pt initially presenting to ED in [place] where they foun d her to be saturating 74% on room air. They did labwork, CXR and transferred her here for d ialysis since it was not available at their facility overnight. PCP:Jonathan Alonso MD Past Medical History: Diagnosis Date Asthma Bacteremia due to Gram-positive bacteria 12/12/2018 Clotted dialysis access (HCC) 2014 Congestive heart failure (HCC) ESRD (end stage renal disease) (HCC) HSP (Henoch-Schonlein purpura) nephritis (HCC) 1987 Hypertension Pericardial effusion without cardiac tamponade 11/07/2018 Past Surgical History: Procedure Laterality Date ABDOMEN SURGERY AV FISTULA REPAIR 02/24/2014 LEFT Radical Cephalic Fistula Creation; Laterality: Left; Surgeon: Blake Chavarria MD ; Location: [facility] MAIN OR AV FISTULA REPAIR Left 03/07/2014 Procedure: AV FISTULA - GRAFT REPAIR/REVISION; Surgeon: Rik Simon MD; Location: [facility] IN OR; Service: Vascular; Laterality: Left; biopsy of kidney age 10 DIALYSIS FISTULA CREATION 04/08/2014 Procedure: DIALYSIS CATHETER - INSERTION; Surgeon: Rik Simon MD; Location: [facility] OR ; Service: Vascular; Laterality: N/A; [...] Simon MD; Location: [facility] OR; Service: Vascular; Laterality: Left; OTHER SURGICAL HISTORY Left 04/08/2014 AV FISTULA PLACEMENT - Procedure: AV FISTULA; Surgeon: Rik Simon MD; Location: [facility] OR; Service: Vascular; Laterality: Left; cephalic OTHER SURGICAL HISTORY Left 03/07/2014 DECLOT GRAFT - Procedure: GRAFT - DECLOT; Surgeon: Rik Simon MD; Location: [facility] OR ; Service: Vascular; Laterality: Left; peritoneal catheter Prior to Admission medications Medication Sig Start Date End Date Taking? Authorizing Provider albuterol 90 mcg/puff inhaler Inhale 2 puffs into the lungs every 6 hours as needed for Whe ezing. Historical Provider, carvedilol (COREG) 12.5 mg tablet Take 1 tablet by mouth 2 times daily. 04/23/19 Arash aguilar MD citalopram (CELEXA) 20 mg tablet Take 1 tablet by mouth Daily. 01/11/19 Emanuel Howard clonazePAM (KLONOPIN) 0.5 mg tablet Take 0.5 tablets by mouth Daily as needed for Anxiety ( on hemodialysis days). 04/23/19 Arash Bonilla MD clopidogrel (PLAVIX) 75 mg tablet Take 1 tablet by mouth Daily. 10/23/18 Gerber Pearson MD doxercalciferol (HECTOROL) 2 mcg/mL injection Inject 0.5 mLs into the vein Three times a we ek. Per dialysis clinic protocol Patient taking differently: Inject 1.5 mcg into the vein Three times a week. Per dialysis c linic protocol 02/26/18 Jorje Camp DO epoetin jenna (EPOGEN) 20,000 units/mL injection Inject 0.4 mLs (8,000 Units total) into the skin every 7 days. 07/03/13 Historical Provider, etelcalcetide (PARSABIV) 2.5 mg/0.5 mL injection Inject 2.5 mg into the vein Three times a week. Historical Provider, fluticasone (FLOVENT HFA) 110 mcg/puff inhaler Inhale 1 puff into the lungs 2 times daily. Historical Provider, HYDROcodone-acetaminophen (NORCO) 5-325 mg per tablet Take 1 tablet by mouth every 6 hours as needed. 04/23/19 Arash Bonilla MD iron sucrose (VENOFER) 20 mg/mL injection Inject 2.5 mLs into the vein Once a week. 09/12/14 Daniela Ibarra MD ondansetron (ZOFRAN) 4 mg tablet Take 4 mg by mouth 3 (three) times daily as needed for Gm sea. Historical Provider, pantoprazole (PROTONIX) 40 mg tablet Take 40 mg by mouth every morning before breakfast. Historical Provider, promethazine (PHENERGAN) 25 mg tablet Take 1 tablet by mouth every 8 hours as needed. Arash Bonilla MD valsartan (DIOVAN) 40 mg tablet Take 1 tablet by mouth Daily. 01/22/19 Carolina Mahmood, Allergies Allergen Reactions Adhesive & Tape Rash Certain tapes Fentanyl Itching Iodinated Diagnostic Agents Itching Pt c/o face itching during fistulagram Methylphenidate Other (See Comments) Patient says skin was crawling Reglan [Metoclopramide] Itching Lisinopril cough Social History Socioeconomic History Marital status: Single Spouse name: Not on file Number of children: 0 Years of education: Not on file Highest education level: Not on file Occupational History Not on file Social Needs Financial resource strain: Not on file Food insecurity: Worry: Not on file Inability: Not on file Transportation needs: Medical: Not on file Non-medical: Not on file Tobacco Use Smoking status: Former Smoker Packs/day: 0.50 Start date: 01/04/2017 Last attempt to quit: 01/04/2018 Years since quittin.5 Smokeless tobacco: Never Used Substance and Sexual Activity Alcohol use: No Drug use: Yes Types: Marijuana Comment: Drug use: Yes Sexual activity: Not Currently Lifestyle Physical activity: Days per week: Not on file Minutes per session: Not on file Stress: Not on file Relationships Social connections: Talks on phone: Not on file Gets together: Not on file Attends islam service: Not on file Active member of club or organization: Not on file Attends meetings of clubs or organizations: Not on file Relationship status: Not on file Intimate partner violence: Fear of current or ex partner: Not on file Emotionally abused: Not on file Physically abused: Not on file Forced sexual activity: Not on file Other Topics Concern Not on file Social History Narrative She lives in [facility]. She does not work. She has 1 full sibling in good health. She has a total of 14 siblings (3 with same mother, rest with same father). 1 half sibling on father's side had a brain tumor. Family History Problem Relation Age of Onset High blood pressure Father Heart disease Mother Seizures Mother Hypertension Father Alcohol abuse Father Review of Systems Constitutional: Negative for: fever, chills Eyes: Negative for: Visual changes Nose: Negative for: rhinorrhea/congestion Throat: Negative for: sore throat Cardiovascular Negative for: chest pain Respiratory: +for: shortness of breath, negative for cough Gastrointestinal: Negative for: abdominal pain, nausea/vomiting, problems with bowel movem ents Genitourinary: Negative for: urinary problems Musculoskeletal: Negative for: myalgias and arthralgias Skin: Negative for: rash Neuro Negative for: confusion, trouble walking/talking Psych: Negative for: abnormal behaviors Endocrine/Heme/Lymph: Negative for: swollen lymph nodes, easy bruising Physical Exam Temp: 36.5 C (97.7 F) Pulse: 98 Resp: 16 BP: (!) 159/118(RN notified) SpO2: 95 % Vitals interpretation: hypertensive General: Alert, in no apparent distress Head: Normocephalic, atraumatic Eyes: Normal inspection, pupils equal and round, non-icteric ENT: External ears, nose normal Pharynx normal Neck: Normal inspection Supple No lymphadenopathy No meningismus Cardiovascular: Rate and rhythm normal No murmurs Respiratory: +crackles R base Abdomen: Soft, non-tender, non-distended No guarding or rebound Genitourinary: Deferred Rectal exam: Deferred Back: Normal inspection Skin: Color normal Warm and dry No rash Extremities: 1+ LE peripheral edema Neuro: No gross motor/sensory deficit Normal gait Medical Decision Making and Emergency Department Course ED Department Course Time 1605: Pt seen and examined. Pt presenting with concern for fluid overload after missin g dialysis. Upon my exam, pt is saturating 93-95% on 4L NC. Her labwork at [facility] showed K of 5.2. No peaked T waves on rhythm strip. Since it has only been 4 hours since most recen t labs, will hold off on any repeat. Will discuss with nephrology manager non profit and admit to [facility]. Medical Decision Making as of Jul 13 1740 Sun July 14, 2019 1620 Discussed with energy projects lead Dr. Duarte. Will plan on dialyzing pt tonight. [address] Reinoso who has accepted pt for admission. Medications ordered during this visit: Medications promethazine (PHENERGAN) (IV ONLY) injection 12.5 mg (has no administration in time range) Records Reviewed Old medical records. Nursing notes. Ambulance run sheet. Previous radiology studies. Laboratory Evaluation Results None Radiology and EKG Evaluation Imaging Results None EKG done 07/14/19 at 1652 shows normal sinus rhythm with a rate of 93 bpm. Lef axis deviati on. No acute ST elevation or depression noted. No peaked t waves noted. Procedures Disposition: Final diagnoses: Shortness of breath ESRD on dialysis (HCC) Acute pulmonary edema (HCC) ED Disposition ED Disposition Condition Comment Admit Clinical impression: Shortness of breath [786.05.ICD-9-CM] Clinical impression: ESRD on dialysis (HCC) [232498] Clinical impression: Acute pulmonary edema (HCC) [663830] Admitting provider: PHYLLIS HOSPITALIST [[id number]] Expected patient class: Inpatient [101] Level of service: Medical Telemetry: Telemetry Discharge Medications: ED Prescriptions None Dictation software, TVtrip, used which may contain error for similar sounding words even af ter review. Personal communication requested for any clarification. DO Luz Callaway DO 07/14/191740 Savanna Arnold RN - 0 07/14/2019 3:26 PM PDTBed: [id number] Expected date: Expected time: Means of arrival: Comments: Medic 5 from [facility], [place] 3:2 6 PM PDTdocumented in this encounter Miscellaneous Notes Plan of Riley - Adina Contreras, Training Instructor - 07/18/2019 5:15 PM PDTDiscussed discharge information, including medications, follow up appointment and plan of care. Patien t verbalized understanding of instructions. Patient discharged with all belongs and prescrip tions. lan of Care - Adina Contreras, Training Instructor - 07/18/2019 9:51 AM PDT Problem: Adult Inpatient Plan of Care Goal: Plan of Care Review Outcome: Ongoing, progressing Problem: Adult Inpatient Plan of Care Goal: Optimal Comfort and Wellbeing Outcome: Ongoing, progressing Problem: Adult Inpatient Plan of Care Goal: Readiness for Transition of Care Outcome: Ongoing, progressing Patient is ready for discharge and has a friend to pick her up when able. Antiemetics have been utilized for nausea. Offered pain medication for headache, patient refused PRN availabl e. lan of Stacia Vasquez RN - 07/18/2019 5:17 AM PDTVSS, pain controlled with prn pain meds, req uiring prn antiemetics to control nausea. Slept comfortably throughout the night. End of Shift review complete. lan of Stacia Vasquez RN - 07/17/2019 10:03 PM PDT Problem: Adult Inpatient Plan of Care Goal: Plan of Care Review Outcome: Ongoing, progressing Plan of care reviewed with patient, questions encouraged and answered. Problem: Adult Inpatient Plan of Care Goal: Patient-Specific Goal Outcome: Ongoing, progressing Goal - pain managed throughout the night, no nausea or vomting Problem: Adult Inpatient Plan of Care Goal: Absence of Hospital-Acquired Illness or Injury Outcome: Ongoing, progressing Problem: Adult Inpatient Plan of Care Goal: Optimal Comfort and Wellbeing Outcome: Ongoing, progressing Prn pain meds adminstered as needed and per protocol Problem: Skin Injury Risk Increased Goal: Skin Health and Integrity Outcome: Ongoing, progressing Patient encouraged to reposition at least every 2 hours and prn. lan of Pratima Araiza RN - 0 7:44 PM PDTEnd of shift chart check complete. lan of [facility] Adina Contreras, Training Instructor - 07/17/19 20 2:51 PM PDT Problem: Adult Inpatient Plan of Care Goal: Optimal Comfort and Wellbeing Outcome: Ongoing, progressing Problem: Fluid Volume Excess Goal: Fluid Balance Outcome: Ongoing, progressing Patient accepted conference with Solid Waste Facility Supervisor to discuss her recent loss and concerns. lan of Mckenzie Cabezas RN - 07/17/2019 12:28 AM PDT Problem: Adult Inpatient Plan of Care Goal: Absence of Hospital-Acquired Illness or Injury Outcome: Ongoing, progressing Goal: Optimal Comfort and Wellbeing Outcome: Ongoing, progressing Intervention: Monitor Pain and Promote Comfort Note: Patient states pain is tolerable with ordered medications, will continue to monitor and pro vide medications as well as comfort measures as needed. End of shift chart review complete. Electronically signed by Mckenzie Sanchez RN at 07/04 4:39 AM PDTPlan of Pratima Araiza RN - 07/16/2019 6:19 PM PDTPatient c/o c hest pain ad stated "I feel a lot of pressure on my chest and I'm short of breath". O2 incre ased to 5L via nasal cannula from 3L. O2 sat 93%. Tele called and reported patient was NSR p er tele monitor. Dr. Reinoso notified. Orders placed. Pain medication administered. Will co ntinue to monitor. End of shift chart check complete. lan of Ysabel Cope RN - 07/16/2019 2:53 PM PDTDischarcristiane Pineda g: CM attended RN rounding, pt having HD today. Thoracentesis removed 2.5 L. Pt does not nee emanuel marino per nursing. Pt to d/c home with family pending clinical course, 1 more day. El ectronically signed by Ysabel Ruelas RN at 07/16/2019 2:55 PM PDTPlan of Pratima Araiza RN - 07/16/2019 12:08 PM PDT Problem: Adult Inpatient Plan of Care Goal: Plan of Care Review Outcome: Ongoing, progressing Plan of care reviewed with the patient. Patient reports understanding of plan of care for the day. Problem: Fluid Volume Excess Goal: Fluid Balance Outcome: Ongoing, progressing Patient is on a 1.2 L fluid restriction. Strict I&O. Problem: Gas Exchange Impaired Goal: Optimal Gas Exchange Outcome: Ongoing, progressing Patient is using 3L oxygen via nasal cannula for oxygenation. Patient reports using 1L at home as baseline. lan of Riley Orona, Rosa Carter RN - 07/16/2019 4:35 AM PDTReceived pt. Has RVM in room, denies suicide ideation. Pt. Notes good friend past away a year ago anniversary of her comming up, speaks of feeling appropriately with RN. Pt. Showered. Stated feelin g much better. Hx of thoracentesis pt. Verbalizes understanding of POC. Medicated for pain and nausea tonight refer to [facility]> Chart review done. Electronically signed by Rosa Orona RN at 0 4:41 AM PDTPlan of Ariadna Cordova RN - 07/15/2019 5:36 PM PDT Problem: Fluid Volume Excess Goal: Fluid Balance Outcome: Ongoing, progressing Problem: Adult Inpatient Plan of Care Goal: Optimal Comfort and Wellbeing Outcome: Ongoing, progressing Pt report decreased SOB. Tolerating pain well with PO pain meds. Remains free from falls an d injury. Calls for help appropriately as needed. Ariadna Ariza RN 07/15/2019 1737 lan of Tom Ramos MSW - 07/15/2019 11:03 AM PDTCare Management Initial Assessment Readmission Risk: HIGH Status Prior to Admission or Illness Arrival From: home or self-care Lives With: alone Living Arrangements: apartment Caregiver For: no one Patient s Caregiver: Functional Status: Caregiving Concerns: Home Accessibility: stairs to enter home Transportation Available: family or friend will provide Able to return to prior living: yes Care Management Concerns Last discharge date: Readmission Within Last 30 Days: no previous admission in last 30 days Is Readmission Diagnosis Related to or Same As: Previous Discharging Facility: Previous Discharge Destination From: PCP: Jonathan Alonso MD Contact Information Family Contact Information: Name: Thania Mallory (mother) Pager: none Fax: none DC Needs Assessment Current Outpt/Agency/Support Groups: outpatient hemodialysis (specify) Community Agency Name: Anticipated Changes Related to Illness: none Concerns to be Addressed: no discharge needs identified Services Anticipated at Discharge: none Equipment Used at Home: none Equipment Needed after Discharge: none Durable Medical Equipment Provider: Pharmacy/Medication Needs: no authorization required Transportation Needs: family or friend will provide Initial Plan Anticipated Discharge Disposition: home Expected DC Date: yes Steps Taken Toward Discharge: Initial assesment. Next Steps: none Notes: CM met with pt for discharge planning. Pt is 24 years old and lives alone in an apt. Pt has 14 stairs at the main entrance. Pt is independent with ambulation. Pt receives dialy sis 3x a week. Pt has no difficulty obtaining her medications and had no resource concerns a t this time. CM will continue to follow as needed. Electronically signed: DORON ALMANZA 07/15/2019 11:03 AM lan Leona Ortiz RN - 07/15/2019 6:23 AM PDTChart check complete. lan Leona Ortiz RN - 07/15/2019 12:48 AM PDT Problem: Fluid Volume Excess Goal: Fluid Balance Outcome: Ongoing, progressing Pt had HD today with 2.3L off. Pt scheduled to have HD again tomorrow. Fluid restrictions followed. documented in this encounter Plan of Treatment + +------+--------+ + + | Name | Type | Priori | Associated Diagnoses | Date/Time | | | | ty | | | + +------+--------+ + + | ED INFORMATION | SHEILA | Routin | | 07/14/2019 4:05 PM | | EXCHANGE | | e | | PDT | + +------+--------+ + + documented as of this encounter Procedures + +--------+ + + + | Procedure Name | Priori | Date/Time | Associated Diagnosis | Comments | | | ty | | | | + +--------+ + + + | CBC WITH | Routin | 07/18/2019 | | Results for this | | DIFFERENTIAL | e | 6:17 AM | | procedure are in the | | | | PDT | | results section. | + +--------+ + + + | MAGNESIUM | Routin | 07/18/2019 | | Results for this | | | e | 6:17 AM | | procedure are in the | | | | PDT | | results section. | + +--------+ + + + | RENAL FUNCTION PANEL | Routin | 07/18/2019 | | Results for this | | | e | 6:17 AM | | procedure are in the | | | | PDT | | results section. | + +--------+ + + + | ECHO COMPLETE | Routin | 07/17/2019 | | Results for this | | | e | 3:14 PM | | procedure are in the | | | | PDT | | results section. | + +--------+ + + + | CBC WITH | Routin | 07/17/2019 | | Results for this | | DIFFERENTIAL | e | 4:59 AM | | procedure are in the | | | | PDT | | results section. | + +--------+ + + + | PHOSPHORUS | Routin | 07/17/2019 | | Results for this | | | e | 4:59 AM | | procedure are in the | | | | PDT | | results section. | + +--------+ + + + | MAGNESIUM | Routin | 07/17/2019 | | Results for this | | | e | 4:59 AM | | procedure are in the | | | | PDT | | results section. | + +--------+ + + + | RENAL FUNCTION PANEL | Routin | 07/17/2019 | | Results for this | | | e | 4:59 AM | | procedure are in the | | | | PDT | | results section. | + +--------+ + + + | TROPONIN I | Routin | 07/16/2019 | | Results for this | | | e | 2:57 PM | | procedure are in the | | | | PDT | | results section. | + +--------+ + + + | XR CHEST INSPIRATION | STAT | 07/16/2019 | | Results for this | | AND EXPIRATION | | 12:58 PM | | procedure are in the | | | | PDT | | results section. | + +--------+ + + + | US GUIDED | Routin | 07/16/2019 | | Results for this | | THORACENTESIS WO | e | 12:02 PM | | procedure are in the | | CHEST TUBE | | PDT | | results section. | + +--------+ + + + | CELL COUNT, BODY | Routin | 07/16/2019 | | Results for this | | FLUID | e | 11:45 AM | | procedure are in the | | | | PDT | | results section. | + +--------+ + + + | PROTEIN, BODY FLUID | Routin | 07/16/2019 | | Results for this | | | e | 11:45 AM | | procedure are in the | | | | PDT | | results section. | + +--------+ + + + | LACTATE | Routin | 07/16/2019 | | Results for this | | DEHYDROGENASE, BODY | e | 11:45 AM | | procedure are in the | | FLUID | | PDT | | results section. | + +--------+ + + + | GLUCOSE, BODY FLUID | Routin | 07/16/2019 | | Results for this | | | e | 11:45 AM | | procedure are in the | | | | PDT | | results section. | + +--------+ + + + | PROTIME INR | STAT | 07/16/2019 | | Results for this | | | | 10:58 AM | | procedure are in the | | | | PDT | | results section. | + +--------+ + + + | TROPONIN I | Routin | 07/16/2019 | | Results for this | | | e | 9:26 AM | | procedure are in the | | | | PDT | | results section. | + +--------+ + + + | LACTATE | Routin | 07/16/2019 | | Results for this | | DEHYDROGENASE | e | 9:26 AM | | procedure are in the | | | | PDT | | results section. | + +--------+ + + + | HEPATIC FUNCTION | Routin | 07/16/2019 | | Results for this | | PANEL | e | 9:26 AM | | procedure are in the | | | | PDT | | results section. | + +--------+ + + + | XR CHEST AP PORTABLE | INOCENCIO | 07/15/2019 | | Results for this | | | | 4:49 PM | | procedure are in the | | | | PDT | | results section. | + +--------+ + + + | CBC WITH | Routin | 07/15/2019 | | Results for this | | DIFFERENTIAL | e | 4:57 AM | | procedure are in the | | | | PDT | | results section. | + +--------+ + + + | MAGNESIUM | Routin | 07/15/2019 | | Results for this | | | e | 4:57 AM | | procedure are in the | | | | PDT | | results section. | + +--------+ + + + | RENAL FUNCTION PANEL | Routin | 07/15/2019 | | Results for this | | | e | 4:57 AM | | procedure are in the | | | | PDT | | results section. | + +--------+ + + + | HEPATITIS B SURFACE | STAT | 07/14/2019 | | Results for this | | AG | | 8:18 PM | | procedure are in the | | | | PDT | | results section. | + +--------+ + + + | ECG 12 LEAD | INOCENCIO | 07/14/2019 | | Results for this | | | | 4:52 PM | | procedure are in the | | | | PDT | | results section. | + +--------+ + + + | ED INFORMATION | Routin | 07/14/2019 | | | | EXCHANGE | e | 4:05 PM | | | | | | PDT | | | + +--------+ + + + +---+--------+ | | | | | Proced | | | ure | | | Note - | | | Cedric, | | | Lab In | | | | | | Hlseve | | | n - | | | 05/10/ | | | 2020 | | | 4:06 | | | PM PDT | | [...] | | | FICATI | | | ON?05/ | | | 10/202 | | | 0 | | | 15:26? | | | CARTER | | | ON, | | | DARA | | | | | | R?MRN: | | | | | | [id number] | | | [id number] | | | riteri | | | [...] | | | al/Laura | | | gical2 | | | /10/20 | | | 12:00 | | | AM | | | [facility] | | | al[facility]ati | | | ent | | | still | | | non | | | compli | | | ant.? | | | Has | | | made | | | attemp | | | ts to | | | stay | | | for | | | full | | | dialys | | | is | | | treatm | | | ent, | | | but | | | still | | | having | | | | | | anxiet | | | y that | | | | | | preven | | | ts her | | | from | | | sticki | | | ng it | | | out.?? | | | Next | | | schedu | | | led | | | appoin | | | tment | | | is | | | 02/18/ | | | 2020 | | | with | | | Dr. | | | Brusma | | | n.1/8/ | | | 20 | | | 12:00 | | | AM | | | [facility] | | | alPati | | | ent | | | has | | | histor | | | y of | | | anxiet | | | y when | | | going | | | | | | throug | | | h 4 | | | hours | | | of | | | dialys | | | is.? I | | | asked | | | her | | | if she | | | | | | needed | | | | | | compan | | | y on | | | next | | | dialys | | | is | | | visit | | | and | | | she | | | said | | | no.? | | | Patien | | | t | | | stated | | | that | | | she is | | | | | | workin | | | g with | | | PCP | | | to | | | find | | | best | | | Rx for | | | | | | anxiet | | | y. | | | Next | | | schedu | | | led | | | visit | | | with | | | PCP | | | [facility] | | | ey is | | | not | | | until | | | 05/12/ | | | 2020.? | | | Pt | | | needs | | | to | | | make | | | ED | | | follow | | | up | | | visit. | | | 9/26/1 | | | 9 | | | 12:00 | | | AM | | | [facility] | | [facility] | | | [...] FOLLOW | | | | | | [place] | | | gs | | | [place] | | | ED | | | Dispar | | | ity | | | Measur | | | e - | | | [place] | | | has | | | develo | | | ped a | | | flag | | | ([place] | | | n ED | | | Dispar | | | ity | | | Measur | | | e) to | | | help | | | suppor | | | t | | | Medica | | | id | | | member | | | s with | | | | | | mental | | | | | | illnes | | | s. | | | [place] | | | | | | Health | | | | | | Author | | | ity | | | uses | | | claims | | | data | | | with a | | | | | | 36-mon | | | th | | | juanita | | | g look | | | back | | | period | | | to | | | identi | | | fy | | | member | | | s who | | | have | | | had | | | two or | | | more | | | diagno | | | ses of | | | | | | mental | | | | | | illnes | | | s | | | (does | | | not | | | need | | | to be | | | primar | | | y) in | | | any | | | settin | | | g | | | (e.g. | | | ED, | | | Inpati | | | ent, | | | primar | | | y | | | care). | | | | | | Flagge | | | d | | | member | | | s are | | | includ | | | ed in | | | the ED | | | | | | Dispar | | | ity | | | Measur | | | e | | | denomi | | | nator | | | popula | | | tion. | | | Flags | | | are | | | update | | | d | | | weekly | | | . / | | | Attrib | | | uted | | | By: | | | [place] | | | | | | Health | | | | | | Author | | | ity | | | (OHA) | | | / | | | Attrib | | | uted | | | On: | | | 03/18/ | | | 2020 | | | Prescr | | | iption | | | Drug | | | [...] | | | Center | | | 8 0 | | | [facility] | | | al 15 | | | 0 | | | Total | | | 23 0 | | | Note: | | [...] | | out | | | of 23 | | | in the | | [...] | | | int | | | May | | | 10, | | | 2020 | | | [facility] | | | | | | [facility] | | | al | | | [facility] | | | [place] | | | [place] | | | Emerge | | | ncy | | | HD | | | | | | Medica | | | l | | | Proble | | | m | | | (Major | | | ) May | | | 10, | | | 2020 | | | [facility] | | [facility] [place] | [place] | [place] | | | Emerge | | | ncy | | | Chief | | | Compla | | | int: | | | CHEST | | | PAIN, | | | SOB | | | Feb | | | 13, | | | 2020 | | | [facility] | | | | | | [facility] | | | al | | | [facility] | | | [place] | | | [place] | | | Emerge | | | ncy | | | Chest | | | Pain | | | | | | Shortn | | | ess of | | | | | | Breath | | | | | | End | | | stage | | | renal | | | diseas | | | e | | | Depend | | | ence | | | on | | | renal | | | dialys | | | is | | | Patien | | | t's | | | noncom | | | plianc | | | e with | | | renal | | | | | | dialys | | | is | | | Chondr | | | ocosta | | | l | | | juncti | | | on | | | syndro | | | me | | | [Rere | | | e] | | | Fluid | | | overlo | | | ad, | | | unspec | | | ified | | | | | | Pleura | | | l | | | effusi | | | on, | | | not | | | elsewh | | | ere | | | classi | | | fied | | | Feb 8, | | | 2020 | | | [facility] | | [facility] [place] | | [place] | | | Emerge | | | ncy | | | Chest | | | pain, | | | | | | unspec | | | ified | | | | | | Other | | | chroni | | | c pain | | | | | | Pleura | | | l | | | effusi | | | on, | | | not | | | elsewh | | | ere | | | classi | | | fied | | | | | | Patien | | | t's | | | noncom | | | plianc | | | e with | | | renal | | | | | | dialys | | | is | | | Depend | | | ence | | | on | | | renal | | | dialys | | | is | | | Heart | | | [...] | | | ical | | | sub | | | Rhys 7, | | | 2020 | | | [facility] | | [...] | | | ical | | | sub | | | Chest | | | [...] | | | n | | | Person | | | al | | | histor | | | y of | | | nicoti | | | ne | | | depend | | | ence | | | | | | Pleura | | | l | | | effusi | | | on, | | | not | | | elsewh | | | ere | | | classi | | | fied | | | End | | | stage | | | renal | | | diseas | | | e Rhys | | | 3, | | | 2020 | | | [facility] [place] | | | Emerge | | | ncy | | | | | | Depend | | | ence | | | on | | | renal | | | dialys | | | is | | | End | | | stage | | | renal | | | diseas | | | e | | | Hyperk | | | alemia | | | | | | Allerg [...] | | | ical | | | sub | | | | | | Radiog [...] | | | breath | | | Dec | | | 15, | | | 2019 | | | [facility] | [facility] | | [...] | | | ical | | | sub | | | | | | Allerg [...] | | | y | | | Cough | | | | | | Fluid | | | overlo | | | ad, | | | unspec | | | ified | | | Nov | | | [...] Breath | | | | | | Shortn | | | ess of | | | | | | breath | | | | | | Depend | | | ence | | | on | | | renal | | | dialys | | | is | | | End | | | stage | | | renal | | | diseas | | | e | | | Pleura | | | l | | | effusi | | | on, | | | not | | | elsewh | | | ere | | | classi | | | fied | | | Nov 4, | | | 2019 | | [...] | | | St[facility] | | | [facility] | | | [facility] | | [...] | | | ical | | | sub | | | | | | Radiog [...] | | | ence | | | Recent | | | [...] | | | int | | | Feb | | | 13, | | | 2020 | | | [facility] | | | | | | [facility] | | | al | | | [facility] | | | [place] | | | [place] | | | [employer] | | | al | | | Medici | | | ne | | | Fluid | | | overlo | | | ad, | | | unspec | | | ified | | | End | | | stage | | | renal | | | | | | diseas | | | e | | | Patien | | | t's | | | noncom | | | plianc | | | e with | | | renal | | | | | | dialys | | | is | | | Depend | | | [...] fied | | | | | | Chondr | | | ocosta | | | l | | | juncti | | | on | | | syndro | | | me | | | [Rere | | | e] | | | Other | | | specif | | | ied | | | person | | | al | | | risk | | | factor | | | s, not | | | | | | elsewh | | | ere | | | classi | | | fi | | | Acute | | | on | | | chroni | | | c | | | combin | | | ed | | | systol | | | ic | | | (conge | | | stive) | | | and | | | diasto | | | lic | | | | | | Chroni | | | c | | | combin | | | ed | | | systol | | | ic | | | (conge | | | stive) | | | and | | | diasto | | | lic | | | (conge | | | st | | | Other | | | disord | | | ers of | | | | | | phosph | | | orus | | | metabo | | | lism | | | Nov | | | 20, | | | 2019 | | | [facility] | | | | | | [facility] | | | al | | | [facility] | | | [place] | | | [place] | | | [employer] | | | al | | | [...] of | | | | | | plasma | | | -prote | | | in | | | metabo | | | lism, | | | not | | | elsewh | | | ere c | | | End | | | stage | | | renal | | | | | | diseas | | | e | | | Shortn | | | ess of | | | | | | breath | | | | | | Patien | | | t's | | | noncom | | | plianc | | | e with | | | renal | | | | | | dialys | | | is | | | Other | | | disord | | | ers of | | | | | | phosph | | | orus | | | metabo | | | lism | | | | | | Acute | | | respir | | | atory | | | distre | | | ss | | | Patien | | | t's | | | noncom | | | plianc | | | e with | | | other | | | | | | medica | | | l | | | treatm | | | ent | | | and | | | maria de jesus | | | | | | Anemia | | | [...] | | | classi | | | fi | | | Oct 7, | | [...] | | | sm | | | Chroni | | | [...] | | diseas | | | e Sep | | | 3, | | | 2019 | | | [facility] | | | | | | [facility] | | | al | | | [facility] | | | [place] | | | [place] | | | [employer] | | | al | | | Medici | | | ne | | | Acute | | | respir | | | atory | | | failur | | | e with | | | | | | hypoxi | | | a | | | Depend | | | ence | | | on | | | renal | | | dialys | | | is | | | Chroni | | | c | | | right | | | heart | | | failur | | | e | | | Chroni | | | c | | | combin | | | ed | | | systol | | | ic | | | (conge | | | stive) | | | and | | | diasto | | | lic | | | (conge | | | st | | | End | | | stage | | | renal | | | diseas | | | e | | | Dilate | | | d | | | cardio | | | myopat | | | hy | | | Pleura | | | l | | | effusi | | | on, | | | not | | | elsewh | | | ere | | | classi | | | fied | | | Left | | | | | | ventri | | | cular | | | failur | | | e, | | | unspec | | | ified | | | | | | Anemia | | | in | | | chroni | | | c | | | kidney | | | | | | diseas | | | e | | | Pulmon | | | anne | | | hypert | | | ension | | | , | | | unspec | | | ified | | | Aug | | | [...] | | | MD | | | [employer] | | | al | | | [...] | | | /notif | | | [id number] | | | 7651-9 | | | [id number] | | | d7-graeme | | | c-[id number] | | | [id number] | | | d9 | | | PLEASE | | | [...] | | | ed.? | | | 2020 | | | [employer]le[employer] | | | tive | | | Medica | | | l | | | Techno | | | logies | | | , Inc. | | | - | | | [email or web address] | | | llecti | | | vemedi | | | [email or web address] | | | m | +---+--------+ documented in this encounter Results Magnesium (07/18/2019 6:17 AM PDT) + + + + + + | Component | Value | Ref Range | Performed | Pathologist | | | | | At | Signature | + + + + + + | Magnesium | 2.0Comment: Testing | 1.7 - 2.4 mg/dL | [facility] | | | | performed at [facility];[address] | | LABORATORY | | | | [address];[place], [place] | | | | | | [address] | | | | + + + + + + + + | Specimen | + + | | + + + + + + + | Performing | Address | City/State/Zipcode | Phone Number | | Organization | | | | + + + + + | [facility] | [address] | [place] [address] | [phone] | + + + + + CBC with Differential (07/18/2019 6:17 AM PDT) + + + + + + | Component | Value | Ref Range | Performed | Pathologist | | | | | At | Signature | + + + + + + | WBC | 4.44 | 3.80 - 11.00 | [facility] | | | | | K/uL | LABORATORY | | + + + + + + | Red Blood | 2.64 (L) | 3.70 - 5.10 | [facility] | | | Cells | | M/uL | LABORATORY | | + + + + + + | Hemoglobin | 9.3 (L) | 11.3 - 15.5 | [facility] | | | | | g/dL | LABORATORY | | + + + + + + | Hematocrit | 30.9 (L) | 34.0 - 46.0 % | [facility] | | | | | | LABORATORY | | + + + + + + | MCV | 117.0 (H) | 80.0 - 100.0 fl | [facility] | | | | | | LABORATORY | | + + + + + + | MCH | 35.2 (H) | 27.0 - 34.0 pg | [facility] | | | | | | LABORATORY | | + + + + + + | MCHC | 30.1 (L) | 32.0 - 35.5 | [facility] | | | | | g/dL | LABORATORY | | + + + + + + | RDW-SD | 57.3 (H) | 37 - 53 fl | [facility] | | | | | | LABORATORY | | + + + + + + | Platelet | 122 (L) | 150 - 400 K/uL | [facility] | | | Count | | | LABORATORY | | + + + + + + | MPV | 11.5Comment: NO NORMAL | fl | [facility] | | | | RANGE ESTABLISHED | | LABORATORY | | + + + + + + | Diff Type | AUTOMATED | | [facility] | | | | | | LABORATORY | | + + + + + + | % nRBC | 0.0 | 0 /100WBC | [facility] | | | | | | LABORATORY | | + + + + + + | % | 69.00 | % | [facility] | | | Neutrophils | | | LABORATORY | | + + + + + + | IMMATURE | 0.00 | % | [facility] | | | GRANULOCYTE | | | LABORATORY | | + + + + + + | % | 13.50 | % | [facility] | | | Lymphocytes | | | LABORATORY | | + + + + + + | Monocyte % | 7.20 | % | [facility] | | | | | | LABORATORY | | + + + + + + | Eosinophils | 10.10 | % | [facility] | | | % | | | LABORATORY | | + + + + + + | Basophils % | 0.20 | % | [facility] | | | | | | LABORATORY | | + + + + + + | Neutrophils | 3.06 | 1.90 - 7.40 | [facility] | | | , Absolute | | K/uL | LABORATORY | | + + + + + + | IMMATURE | 0.00Comment: NOTE NEW | 0.00 - 0.07 | [facility] | | | GRANS AB | REFERENCE RANGE | K/uL | LABORATORY | | + + + + + + | Absolute | 0.60 (L) | 1.00 - 3.90 | [facility] | | | Lymphocytes | | K/uL | LABORATORY | | + + + + + + | Absolute | 0.32 | 0.00 - 0.80 | [facility] | | | Monocytes | | K/uL | LABORATORY | | + + + + + + | Eosinophils | 0.45 | 0.00 - 0.50 | [facility] | | | , Absolute | | K/uL | LABORATORY | | + + + + + + | Basophils, | 0.01Comment: Testing | 0.00 - 0.10 | [facility] | | | Absolute | performed at [facility];[address] | K/uL | LABORATORY | | | | [address];[place] | | | | | | [address] | | | | + + + + + + + + | Specimen | + + | | + + + + + + + | Performing | Address | City/State/Zipcode | Phone Number | | Organization | | | | + + + + + | [facility] | [address] | [place] [address] | [phone] | + + + + + Renal Function Panel (07/18/2019 6:17 AM PDT) + + + + + + | Component | Value | Ref Range | Performed | Pathologist | | | | | At | Signature | + + + + + + | Na | 136 | 135 - 145 | [facility] | | | | | mmol/L | LABORATORY | | + + + + + + | K | 4.3 | 3.5 - 4.9 | [facility] | | | | | mmol/L | LABORATORY | | + + + + + + | Cl | 100 | 99 - 109 mmol/L | [facility] | | | | | | LABORATORY | | + + + + + + | CO2 | 30 | 23 - 32 mmol/L | [facility] | | | | | | LABORATORY | | + + + + + + | Anion Gap | 10 | 5 - 20 mmol/L | [facility] | | | | | | LABORATORY | | + + + + + + | Glucose | 91 | 65 - 99 mg/dL | [facility] | | | | | | LABORATORY | | + + + + + + | BUN | 16 | 8 - 25 mg/dL | [facility] | | | | | | LABORATORY | | + + + + + + | Creatinine | 4.96 (H) | 0.50 - 1.00 | [facility] | | | | | mg/dL | LABORATORY | | + + + + + + | Calcium | 9.6 | 8.5 - 10.5 | [facility] | | | | | mg/dL | LABORATORY | | + + + + + + | Albumin | 3.7 | 3.6 - 5.0 g/dL | [facility] | | | | | | LABORATORY | | + + + + + + | Phosphorus | 5.5 (H) | 2.3 - 4.8 mg/dL | [facility] | | | | | | LABORATORY | | + + + + + + | Estimated | 11 (L)Comment: GFR <60: | >60 | [facility] | | | GFR | CHRONIC [...] | | | | | | MDRD IDWY traceable | | | | | | equation.Testing | | | | | | performed at [facility];[address] | | | | | | [facility];[place], [place] | | | | | | [address] | | | | + + + + + + + + | Specimen | + + | Blood | + + + + + + + | Performing | Address | City/State/Zipcode | Phone Number | | Organization | | | | + + + + + | [facility] | [address] | [place] [address] | [phone] | + + + + + ECHO Complete (07/17/2019 3:14 PM PDT) + +--------+ + + + | Component | Value | Ref Range | Performed | Pathologist | | | | | At | Signature | + +--------+ + + + | LVEF-TTE | 45 | % | [facility] | | | TRANSTHORAC | | | | | | IC ECHO | | | | | + +--------+ + + + | RA PRESSURE | 15 | mmHg | [facility] | | + +--------+ + + + | LVIDd | 4.09 | cm | [facility] | | + +--------+ + + + | FS | 35 | % | [facility] | | + +--------+ + + + | LA volume | 74.15 | mL | [facility] | | + +--------+ + + + | Ascending | 2.55 | cm | [facility] | | | aorta | | | | | + +--------+ + + + | AV mean | 12.13 | mmHg | [facility] | | | gradient | | | | | + +--------+ + + + | Aortic | 1.56 | cm2 | [facility] | | | Valve Area | | | | | | by | | | | | | Continuity | | | | | | VTI | | | | | + +--------+ + + + | MV Area by | 2.94 | cm2 | [facility] | | | P 1/2 | | | | | | method | | | | | + +--------+ + + + | PV peak | 2.88 | mmHg | [facility] | | | gradient | | | | | + +--------+ + + + | LVOT | 2.02 | cm | [facility] | | | diameter | | | | | + +--------+ + + + | LVOT peak | 103.82 | cm/s | [facility] | | | manuel | | | | | + +--------+ + + + | LVOT peak | 16.09 | cm | [facility] | | | VTI | | | | | + +--------+ + + + | AV peak manuel | 231.98 | cm/s | [facility] | | + +--------+ + + + | AV VTI | 33 | cm | [facility] | | + +--------+ + + + | AV peak | 21.53 | mmHg | [facility] | | | gradient | | | | | + +--------+ + + + | TV peak | 3.46 | mmHg | [facility] | | | gradient | | | | | + +--------+ + + + | PV mean | 1.34 | mmHg | [facility] | | | gradient | | | | | + +--------+ + + + | MV Pressure | 74.87 | msec | [facility] | | | 1/2 time | | | | | + +--------+ + + + | LA Volume | 41 | mL/m2 | [facility] | | | Index | | | | | + +--------+ + + + | AV LVOT | 4.31 | mmHg | [facility] | | | Peak | | | | | | Gradient | | | | | + +--------+ + + + | AV LVOT | 2.59 | mmHg | [facility] | | | Mean | | | | | | Gradient | | | | | + +--------+ + + + | TR Peak | 61 | mmHg | [facility] | | | Gradient | | | | | + +--------+ + + + | RV Free | 10.98 | cm/s | [facility] | | | Wall Peak | | | | | | S' | | | | | + +--------+ + + + | TR Velocity | 390.04 | cm/s | [facility] | | + +--------+ + + + | PI Peak | 84.88 | cm/s | [facility] | | | Velocity | | | | | + +--------+ + + + | RV | 5.8 | cm | [facility] | | | Diastolic | | | | | | Basal | | | | | | Diameter | | | | | + +--------+ + + + | LVOT Mean | 77.23 | cm/s | [facility] | | | Velocity | | | | | + +--------+ + + + | RVSP | 76 | mmHg | [facility] | | | Estimated | | | | | + +--------+ + + + | MV | 249.57 | msec | [facility] | | | Deceleratio | | | | | | n Time | | | | | + +--------+ + + + | MV Peak | 96.6 | cm/s | [facility] | | | E-Wave | | | | | + +--------+ + + + | TV | 82.54 | msec | [facility] | | | Deceleratio | | | | | | n Time | | | | | + +--------+ + + + | TV Peak | 131.69 | cm/s | [facility] | | | A-Wave | | | | | + +--------+ + + + | TV Peak | 93.02 | cm/s | [facility] | | | E-Wave | | | | | + +--------+ + + + | PV Mean | 53.74 | cm/s | [facility] | | | Velocity | | | | | + +--------+ + + + | AV Mean | 167.55 | cm/s | [facility] | | | Velocity | | | | | + +--------+ + + + | RA Area | 26.06 | cm2 | [facility] | | + +--------+ + + + | LA/Aorta | 1.51 | | [facility] | | | Ratio | | | | | + +--------+ + + + | LA Major | 0.33 | cm | [facility] | | + +--------+ + + + | Cardiac | 4.74 | l/min | [facility] | | | Output | | | | | + +--------+ + + + | Cardiac | 2.62 | l/min/m2 | [facility] | | | Index | | | | | + +--------+ + + + | Vitals | 92 | | [facility] | | | Heart Rate | | | | | | Rest | | | | | + +--------+ + + + | Vitals BP | 109 | | [facility] | | | Systolic | | | | | + +--------+ + + + | Vitals BP | 67 | | [facility] | | | Diastolic | | | | | + +--------+ + + + | Vitals | 170.0 | | [facility] | | | Height | | | | | + +--------+ + + + | Vitals | 70.30 | | [facility] | | | Weight | | | | | + +--------+ + + + | Aortic Root | 2.79 | cm | [facility] | | | Diameter | | | | | + +--------+ + + + | IVS | 1.25 | cm | [facility] | | | Diastolic | | | | | | Thickness | | | | | | MM | | | | | + +--------+ + + + | LVPW | 1.31 | cm | [facility] | | | Diastolic | | | | | | Thickness | | | | | | MM | | | | | + +--------+ + + + | IVS | 1.74 | cm | [facility] | | | Systolic | | | | | | Thickness | | | | | | MM | | | | | + +--------+ + + + | LV Systolic | 2.64 | cm | [facility] | | | Diameter | | | | | | MM | | | | | + +--------+ + + + | LVPW | 2.13 | cm | [facility] | | | Systolic | | | | | | Thickness | | | | | | MM | | | | | + +--------+ + + + | AV Cusp | 1.95 | cm | [facility] | | | Seperation | | | | | | MM | | | | | + +--------+ + + + | LA Systolic | 4.22 | cm | [facility] | | | Diameter | | | | | | MM | | | | | + +--------+ + + + | TAPSE | 1.17 | cm | [facility] | | + +--------+ + + + + + | Specimen | + + | | + + + + + | Narrative | Performed At | + + + | | [facility] | | Normal size left ventricle. | | | There is mild diffuse increased left ventricular wall thickness. | | | Mildly reduced left ventricular systolic function. | | | The EF is 45-50% | | | Severely dilated right ventricle. | | | There is interventricular septal flattening with systole and diastole | | | consistent with right ventricular pressure overload. | | | Severe central tricuspid regurgitation. | | | Severely dilated right atrium. | | | There is severe pulmonary hypertension. | | | Estimated right ventricular systolic pressure (RVSP) is 76 mmHg. | | + + + + +---------+ + + | Performing | Address | City/State/Zipcode | Phone Number | | Organization | | | | + +---------+ + + | [facility] | | | | + +---------+ + + CBC with Differential (07/17/2019 4:59 AM PDT) + + + + + + | Component | Value | Ref Range | Performed | Pathologist | | | | | At | Signature | + + + + + + | WBC | 4.61 | 3.80 - 11.00 | [facility] | | | | | K/uL | LABORATORY | | + + + + + + | Red Blood | 2.68 (L) | 3.70 - 5.10 | [facility] | | | Cells | | M/uL | LABORATORY | | + + + + + + | Hemoglobin | 9.4 (L) | 11.3 - 15.5 | [facility] | | | | | g/dL | LABORATORY | | + + + + + + | Hematocrit | 30.9 (L) | 34.0 - 46.0 % | [facility] | | | | | | LABORATORY | | + + + + + + | MCV | 115.3 (H) | 80.0 - 100.0 fl | [facility] | | | | | | LABORATORY | | + + + + + + | MCH | 35.1 (H) | 27.0 - 34.0 pg | [facility] | | | | | | LABORATORY | | + + + + + + | MCHC | 30.4 (L) | 32.0 - 35.5 | [facility] | | | | | g/dL | LABORATORY | | + + + + + + | RDW-SD | 56.9 (H) | 37 - 53 fl | [facility] | | | | | | LABORATORY | | + + + + + + | Platelet | 120 (L) | 150 - 400 K/uL | [facility] | | | Count | | | LABORATORY | | + + + + + + | MPV | 11.6Comment: NO NORMAL | fl | [facility] | | | | RANGE ESTABLISHED | | LABORATORY | | + + + + + + | Diff Type | AUTOMATED | | [facility] | | | | | | LABORATORY | | + + + + + + | % nRBC | 0.0 | 0 /100WBC | [facility] | | | | | | LABORATORY | | + + + + + + | % | 71.70 | % | [facility] | | | Neutrophils | | | LABORATORY | | + + + + + + | IMMATURE | 0.20 | % | [facility] | | | GRANULOCYTE | | | LABORATORY | | + + + + + + | % | 10.80 | % | [facility] | | | Lymphocytes | | | LABORATORY | | + + + + + + | Monocyte % | 9.30 | % | [facility] | | | | | | LABORATORY | | + + + + + + | Eosinophils | 7.60 | % | [facility] | | | % | | | LABORATORY | | + + + + + + | Basophils % | 0.40 | % | [facility] | | | | | | LABORATORY | | + + + + + + | Neutrophils | 3.30 | 1.90 - 7.40 | [facility] | | | , Absolute | | K/uL | LABORATORY | | + + + + + + | IMMATURE | 0.01Comment: NOTE NEW | 0.00 - 0.07 | [facility] | | | GRANS AB | REFERENCE RANGE | K/uL | LABORATORY | | + + + + + + | Absolute | 0.50 (L) | 1.00 - 3.90 | [facility] | | | Lymphocytes | | K/uL | LABORATORY | | + + + + + + | Absolute | 0.43 | 0.00 - 0.80 | [facility] | | | Monocytes | | K/uL | LABORATORY | | + + + + + + | Eosinophils | 0.35 | 0.00 - 0.50 | [facility] | | | , Absolute | | K/uL | LABORATORY | | + + + + + + | Basophils, | 0.02Comment: Testing | 0.00 - 0.10 | [facility] | | | Absolute | performed at [facility], [address] | K/u[address] | LABORATORY | | | | [facility], | | | | | | [place] [address] | | | | + + + + + + + + | Specimen | + + | Blood | + + + + + + + | Performing | Address | City/State/Zipcode | Phone Number | | Organization | | | | + + + + + | [facility] | [address] | [place] [address] | [phone] | + + + + + Magnesium (07/17/2019 4:59 AM PDT) + + + + + + | Component | Value | Ref Range | Performed | Pathologist | | | | | At | Signature | + + + + + + | Magnesium | 2.5 (H)Comment: Testing | 1.7 - 2.4 mg/dL | [facility] | | | | performed at [facility], [address] | | LABORATORY | | | | [address], | | | | | | [place] [address] | | | | + + + + + + + + | Specimen | + + | Blood | + + + + + + + | Performing | Address | City/State/Zipcode | Phone Number | | Organization | | | | + + + + + | [facility] | [address] | [place] [address] | [phone] | + + + + + Phosphorus (07/17/2019 4:59 AM PDT) + + + + + + | Component | Value | Ref Range | Performed | Pathologist | | | | | At | Signature | + + + + + + | Phosphorus | 8.4 (H)Comment: Testing | 2.3 - 4.8 mg/dL | [facility] | | | | performed at [facility], [address] | | LABORATORY | | | | [address], | | | | | | [place] [address] | | | | + + + + + + + + | Specimen | + + | Blood | + + + + + + + | Performing | Address | City/State/Zipcode | Phone Number | | Organization | | | | + + + + + | [facility] | [address] | [place] [address] | [phone] | + + + + + Renal Function Panel (07/17/2019 4:59 AM PDT) + + + + + + | Component | Value | Ref Range | Performed | Pathologist | | | | | At | Signature | + + + + + + | Na | 135 | 135 - 145 | [facility] | | | | | mmol/L | LABORATORY | | + + + + + + | K | 5.0 (H) | 3.5 - 4.9 | [facility] | | | | | mmol/L | LABORATORY | | + + + + + + | Cl | 99 | 99 - 109 mmol/L | [facility] | | | | | | LABORATORY | | + + + + + + | CO2 | 28 | 23 - 32 mmol/L | [facility] | | | | | | LABORATORY | | + + + + + + | Anion Gap | 13 | 5 - 20 mmol/L | [facility] | | | | | | LABORATORY | | + + + + + + | Glucose | 92 | 65 - 99 mg/dL | [facility] | | | | | | LABORATORY | | + + + + + + | BUN | 32 (H) | 8 - 25 mg/dL | [facility] | | | | | | LABORATORY | | + + + + + + | Creatinine | 6.8 (H) | 0.50 - 1.00 | [facility] | | | | | mg/dL | LABORATORY | | + + + + + + | Calcium | 8.6 | 8.5 - 10.5 | [facility] | | | | | mg/dL | LABORATORY | | + + + + + + | Albumin | 3.1 (L) | 3.6 - 5.0 g/dL | [facility] | | | | | | LABORATORY | | + + + + + + | Phosphorus | 8.1 (H) | 2.3 - 4.8 mg/dL | [facility] | | | | | | LABORATORY | | + + + + + + | Estimated | 8 (L)Comment: GFR <60: | >60 | [facility] | | | GFR | CHRONIC [...] | | | | | | MDRD IDWY traceable | | | | | | equation.Testing | | | | | | performed at [facility], [address] | | | | | | [facility], | | | | | | [place] [address] | | | | + + + + + + + + | Specimen | + + | Blood | + + + + + + + | Performing | Address | City/State/Zipcode | Phone Number | | Organization | | | | + + + + + | [facility] | [address] | [place] [address] | [phone] | + + + + + Troponin I (07/16/2019 2:57 PM PDT) + + + + + + | Component | Value | Ref Range | Performed | Pathologist | | | | | At | Signature | + + + + + + | Troponin I | 0.081 (H)Comment: 0.04 | 0.00 - 0.04 | [facility] | | | | ng/mL or less [...] at | | | | | | [facility];[address] [facility] [address] | | | | | | [address];[place] [address] | | | | + + + + + + + + | Specimen | + + | Blood | + + + + + + + | Performing | Address | City/State/Zipcode | Phone Number | | Organization | | | | + + + + + | [facility] | [address] | [place] [address] | [phone] | + + + + + XR Chest Inspiration and Expiration (07/16/2019 12:58 PM PDT) + + | Specimen | + + | | + + + + + | Impressions | Performed At | + + + | There is no pneumothorax. A large right pleural effusion with | [facility] | | atelectasis is noted. Signed by: Eliza Khan, Lee Sign | | | Date/Time: 07/16/2019 1:08 PM | | + + + + + + | Narrative | Performed At | + + + | XR CHEST INSPIRATION AND EXPIRATION CLINICAL INFORMATION: | [facility] | | Post right thoracentesis COMPARISON: XR CHEST AP PORTABLE | | | (07/15/2019); CRCHEST (07/14/2019); FINDINGS: There is no | | | pneumothorax. There is mild enlargement of the heart. No | | | mediastinal shift or widening is noted. There is a large right | | | pleural effusion. Compressive atelectasis of the right lung is | | | noted. There is mild vascular congestion. Mild osteopenia is | | | present. | | + + + + + | Procedure Note | + + | Cedric, Rad Results In 07/16/2019 1:11 PM PDT | | XR CHEST INSPIRATION AND EXPIRATION | | | | CLINICAL INFORMATION: | | Post right thoracentesis | | | | COMPARISON: | | XR CHEST AP PORTABLE (07/15/2019); CRCHEST (07/14/2019); | | | | FINDINGS: | | There is no pneumothorax. There is mild enlargement of the heart. No | | mediastinal shift or widening is noted. There is a large right pleural | | effusion. Compressive atelectasis of the right lung is noted. There | | is mild vascular congestion. Mild osteopenia is present. | | | | IMPRESSION: | | There is no pneumothorax. A large right pleural effusion with | | atelectasis is noted. | | | | | | | | Signed by: Eliza Khan Richard | | Sign Date/Time: 07/16/2019 1:08 PM | + + + +---------+ + + | Performing | Address | City/State/Zipcode | Phone Number | | Organization | | | | + +---------+ + + | [facility] | | | | + +---------+ + + US Guided Thoracentesis wo Chest Tube (07/16/2019 12:02 PM PDT) + + | Specimen | + + | | + + + + + | Narrative | Performed At | + + + | ULTRASOUND | [facility] | | GUIDED RIGHT THORACENTESIS CLINICAL INFORMATION:Right pleural effusion | | | PROCEDURE:Prior to the procedure, risks and benefits were explained | | | to the patient and informed written and verbal consent obtained. A | | | time-out was performed. An area in the right posterior chest was | | | marked on the skin with ultrasound guidance, and the area prepped and | | | draped in the usual sterile fashion. Using 1% lidocaine for local | | | anesthesia, the pleural cavity was punctured with a 5 Ethiopian | | | thoracentesis catheter. A total of 1500 mL of dai pleural fluid | | | was removed. A sterile dressing was applied. A sample of the pleural | | | fluid was sent to the lab for analysis per ordering provider's | | | request. The patient tolerated the procedure well. There were no | | | immediate complications. Medications: None. Estimated Blood Loss: | | | Minimal (<10 mL). IMPRESSION:1. Uncomplicated thoracentesis. 1500 mL | | | of dai pleural fluid was obtained and sent to the laboratory for | | | analysis per ordering provider's request.2. Chest x-ray following the | | | procedure was reviewed independently by myself and by Dr. Howard | | | MD Erin, radiologist. No evidence of pneumothorax. A large right | | | pleural effusion remains. Consider additional thoracentesis at least | | | 24 hours from this procedure. Electronically signed by: Katelyn Mccullough | | | KRISHNA Cavazos 07/16/2019 1:33 PM | | |Medications: None. | | | | | |Estimated Blood Loss: Minimal (<10 mL). | | | | | |IMPRESSION: | | |1. Uncomplicated thoracentesis. 1500 mL of dai pleural fluid was | | |obtained and sent to the laboratory for analysis per ordering provider's | | |request. | | |2. Chest x-ray following the procedure was reviewed independently by | | |myself and by Dr. Lee Khan MD, radiologist. No evidence of | | |pneumothorax. A large right pleural effusion remains. Consider additional | | |thoracentesis at least 24 hours from this procedure. | | | | | | | | |Electronically signed by: KRISHNA Michel 07/16/2019 1:33 PM | | | | | | | | + + + + +---------+ + + | Performing | Address | City/State/Zipcode | Phone Number | | Organization | | | | + +---------+ + + | [facility] | | | | + +---------+ + + Glucose, Body Fluid (07/16/2019 11:45 AM PDT) + + + + + + | Component | Value | Ref Range | Performed | Pathologist | | | | | At | Signature | + + + + + + | Glucose | 89Comment: | mg/dL | [facility] | | | Fluid | | | LABORATORY | | | | | | | | | | | | | | | | | | | | | | | | | | | | : BODY FLUID | | | | | | TYPE : | | | | | | GLUCOSE:: | | | | | | ____: | | | | | | ____:: Amniotic Fluid | | | | | | : 45 - 76 | | | | | | : | | | | | | : : | | | | | | : : | | | | | | Bile, Clear : | | | | | | < 5 | | | | | | : | | | | | | : : | | | | | | : | | | | | | : Bile, Yellow : | | | | | | < 8 | | | | | | : | | | | | | : : | | | | | | : | | | | | | : Lymph | | | | | | : 48 - | | | | | | 200 : | | | | | | : : | | | | | | : | | | | | | : Nasal | | | | | | Secretion : | | | | | | < 10 : | | | | | | | | | | | | : : | | | | | | : | | | | | | : Pleural | | | | | | Fluid : 65 | | | | | | - 99 : | | | | | | | | | | | | : : | | | | | | : | | | | | | : Saliva | | | | | | : | | | | | | < 2 | | | | | | : : | | | | | | (Mixed Glands : | | | | | | | | | | | | : | | | | | | : :___ | | | | | | : | | | | | | : | | | | | | Sweat : | | | | | | < 7 | | | | | | : | | | | | | | | | | | | : :___ | | | | | | : | | | | | | : | | | | | | Synovial Fluid : | | | | | | 65 - 99 | | | | | | : | | | | | | | | | | | | : :___ | | | | | | : | | | | | | | | | | | | : Tears | | | | | | : 76 - 288 | | | | | | : | | | | | | | | | | | | : :___ | | | | | | : | | | | | | | | | | | | [place], | | | | | | [employer] Reference | | | | | | Intervals | | | | | | | | | | | | for Adults and Children | | | | | | 2008. [place] | | | | | | | | | | | | edition (V9.1) [facility] | | | | | | [employer], | | | | | | | | | | | | [place]; | | | | | | [place]: [place] | | | | | | 2008.The reference | | | | | | intervals and other | | | | | | method performance | | | | | | specificationshave not | | | | | | been established for | | | | | | this test. The test | | | | | | result should | | | | | | beintegrated into the | | | | | | clinical context for | | | | | | interpretation.Testing | | | | | | performed at [facility], | | | | | | [address], [address], | | | | | | [facility] [address] | | | | + + + + + + + + | Specimen | + + | Body Fluid | + + + + + + + | Performing | Address | City/State/Zipcode | Phone Number | | Organization | | | | + + + + + | [facility] | [address] | [place] [address] | [phone] | + + + + + Protein, Body Fluid (07/16/2019 11:45 AM PDT) + + + + + + | Component | Value | Ref Range | Performed | Pathologist | | | | | At | Signature | + + + + + + | Protein, | 3.1Comment: | g/dL | [facility] | | | Body Fluid | | | LABORATORY | | | | | | | | | | | | | | | | | | | | | | | | | | | | : BODY FLUID | | | | | | TYPE : TOTAL | | | | | | PROTEIN : | | | | | | | | | | | | | | | | | | : :___ | | | | | | : | | | | | | | | | | | | : Amniotic | | | | | | Fluid : | | | | | | <0.4 : | | | | | | | | | | | | | | | | | | : :___ | | | | | | : | | | | | | | | | | | | : | | | | | | : | | | | | | Nonmalignant: <3.0 | | | | | | : | | | | | | : | | | | | | Ascitic Fluid : | | | | | | Malignant: >3.0 | | | | | | : | | | | | | | | | | | | : :___ | | | | | | : | | | | | | | | | | | | : Bile, | | | | | | Clear : | | | | | | <0.9 : | | | | | | | | | | | | | | | | | | : :___ | | | | | | : | | | | | | | | | | | | : Bile, | | | | | | Yellow : | | | | | | 0.2 - 0.6 : | | | | | | | | | | | | | | | | | | : :___ | | | | | | : | | | | | | | | | | | | : Lymph | | | | | | : | | | | | | 2.2 - 6.0 : | | | | | | | | | | | | | | | | | | : :___ | | | | | | : | | | | | | | | | | | | : Human Milk | | | | | | : | | | | | | 1.9 - 2.0 : | | | | | | | | | | | | | | | | | | : : | | | | | | : | | | | | | | | | | | | : Nasal | | | | | | Secretion : | | | | | | 0.1 - 3.5 : | | | | | | | | | | | | | | | | | | : :___ | | | | | | : | | | | | | | | | | | | : Pancreatic | | | | | | : | | | | | | 0.0 - 0.1 : | | | | | | | | | | | | : Juice | | | | | | : (post | | | | | | stimulation) : | | | | | | | | | | | | | | | | | | : :___ | | | | | | : | | | | | | | | | | | | : | | | | | | : | | | | | | Transudate: <0.3 | | | | | | : | | | | | | : | | | | | | Pleural Fluid : | | | | | | Exudate: >0.3 | | | | | | : | | | | | | | | | | | | : :___ | | | | | | : | | | | | | | | | | | | : Saliva | | | | | | : | | | | | | 0.1 - 0.2 : | | | | | | | | | | | | : (Mixed | | | | | | Glands) : | | | | | | : | | | | | | | | | | | | | | | | | | : :___ | | | | | | : | | | | | | | | | | | | : Synovial | | | | | | Fluid : | | | | | | <2.5 : | | | | | | | | | | | | | | | | | | : :___ | | | | | | : | | | | | | | | | | | | : Tears | | | | | | : | | | | | | 0.8 - 0.9 : | | | | | | | | | | | | | | | | | | : :___ | | | | | | : | | | | | | | | | | | | [place], | | | | | | [place] V. Reference | | | | | | Intervals | | | | | | | | | | | | for Adults and | | | | | | Children | | | | | | | | | | | | Edition | | | | | | (V9.1) [employer] | | | | | | [employer], | | | | | | | | | | | | [place]; [place]: | | | | | | September 2008.The method | | | | | | performance | | | | | | specifications have not | | | | | | been established forthis | | | | | | test in body fluid. | | | | | | The test result should | | | | | | be integrated intothe | | | | | | clinical context for | | | | | | interpretation.Testing | | | | | | performed at [facility], | | | | | | [address], | | | | | | [place] [address] | | | | + + + + + + + + | Specimen | + + | Body Fluid | + + + + + + + | Performing | Address | City/State/Zipcode | Phone Number | | Organization | | | | + + + + + | [facility] | [address] | [place] [address] | [phone] | + + + + + Lactate dehydrogenase, body fluid (07/16/2019 11:45 AM PDT) + + + + + + | Component | Value | Ref Range | Performed | Pathologist | | | | | At | Signature | + + + + + + | Lactate | 105Comment: | IU/L | [facility] | | | Dehydrogena | | | LABORATORY | | | se, Body | | | | | | Fluid | | | | | | | | | | | | | | | | | | | : BODY FLUID | | | | | | TYPE : LDH | | | | | | : | | | | | | | | | | | | | | | | | | : :___ | | | | | | : | | | | | | | | | | | | : | | | | | | : | | | | | | Nonmalignant: < 60% | | | | | | : | | | | | | : | | | | | | : | | | | | | of the serum LDH | | | | | | : | | | | | | : | | | | | | Ascitic Fluid : | | | | | | Malignant: > 60% | | | | | | : | | | | | | : | | | | | | : | | | | | | of the serum LDH | | | | | | : | | | | | | | | | | | | : :___ | | | | | | : | | | | | | | | | | | | : Gastric | | | | | | Juice : | | | | | | < 35 : | | | | | | | | | | | | | | | | | | : :___ | | | | | | : | | | | | | | | | | | | : | | | | | | : | | | | | | Transudate: <200 | | | | | | : | | | | | | : | | | | | | Pleural Fluid : | | | | | | Exudate: >200 | | | | | | : | | | | | | | | | | | | : :___ | | | | | | : | | | | | | | | | | | | : Saliva | | | | | | : | | | | | | 113 - 609 : | | | | | | | | | | | | : (Mixed | | | | | | Glands) : | | | | | | : | | | | | | | | | | | | | | | | | | : :___ | | | | | | : | | | | | | | | | | | | : Synovial | | | | | | Fluid : | | | | | | <240 : | | | | | | | | | | | | | | | | | | : :___ | | | | | | : | | | | | | | | | | | | [place], | | | | | | [place] V. Reference | | | | | | Intervals | | | | | | | | | | | | for Adults and Children | | | | | | 2008. Ninth | | | | | | | | | | | | Edition (V9.1) [employer] | | | | | | [employer], | | | | | | | | | | | | [place]; | | | | | | [place]: September | | | | | | 2008.The reference | | | | | | intervals and other | | | | | | method performance | | | | | | specificationshave not | | | | | | been established for | | | | | | this test. The test | | | | | | result should | | | | | | beintegrated into the | | | | | | clinical context for | | | | | | interpretation.Testing | | | | | | performed at [facility], | | | | | | [address], | | | | | | [facility] [address] | | | | + + + + + + + + | Specimen | + + | Body Fluid | + + + + + + + | Performing | Address | City/State/Zipcode | Phone Number | | Organization | | | | + + + + + | [facility] | [address] | [place] [address] | [phone] | + + + + + Cell Count, Body Fluid (07/16/2019 11:45 AM PDT) + + + + + + | Component | Value | Ref Range | Performed | Pathologist | | | | | At | Signature | + + + + + + | Specimen | PLEURAL FLUID | | [facility] | | | Type | | | LABORATORY | | + + + + + + | Color | YELLOW | | [facility] | | | | | | LABORATORY | | + + + + + + | Appearance | HAZY | | [facility] | | | | | | LABORATORY | | + + + + + + | Nucleated | 63 | /mm3 | [facility] | | | Cells, Body | | | LABORATORY | | | Fluid | | | | | + + + + + + | Red Blood | 1,000 | /mm3 | [facility] | | | Cells, Body | | | LABORATORY | | | Fluid | | | | | + + + + + + | % | 4 | % | [facility] | | | Lymphocytes | | | LABORATORY | | | , Body | | | | | | Fluid | | | | | + + + + + + | % | 40 | % | [facility] | | | Mononuclear | | | LABORATORY | | | | | | | | | Phagocytes, | | | | | | Body Fluid | | | | | + + + + + + | MESOTHELIAL | 56 | % | [facility] | | | CELLS | | | LABORATORY | | + + + + + + | Total Cells | 100Comment: Testing | | [facility] | | | Counted | performed at [facility];[address] | | LABORATORY | | | | [address];[place] | | | | | | [address] | | | | + + + + + + + + | Specimen | + + | Body Fluid | + + + + + + + | Performing | Address | City/State/Zipcode | Phone Number | | Organization | | | | + + + + + | [facility] | [address] | [place] [address] | [phone] | + + + + + Protime INR (07/16/2019 10:58 AM PDT) + + + + + + | Component | Value | Ref Range | Performed | Pathologist | | | | | At | Signature | + + + + + + | INR | 1.2Comment: REFERENCE | | [facility] | | | | RANGE:0.9 - [...] | | | | performed at [facility];[address] | | | | | | [facility];[place] | | | | | | [address] | | | | + + + + + + + + | Specimen | + + | Blood | + + + + + + + | Performing | Address | City/State/Zipcode | Phone Number | | Organization | | | | + + + + + | [facility] | [address] | [place] [address] | [phone] | + + + + + Lactate Dehydrogenase (07/16/2019 9:26 AM PDT) + + + + + + | Component | Value | Ref Range | Performed | Pathologist | | | | | At | Signature | + + + + + + | LDH TOTAL | 214Comment: Testing | 120 - 246 U/L | [facility] | | | | performed at [facility];[address] | | LABORATORY | | | | [address];[place] | | | | | | [address] | | | | + + + + + + + + | Specimen | + + | | + + + + + + + | Performing | Address | City/State/Zipcode | Phone Number | | Organization | | | | + + + + + | [facility] | [address] | [place] [address] | [phone] | + + + + + Hepatic Function Panel (07/16/2019 9:26 AM PDT) + + + + + + | Component | Value | Ref Range | Performed | Pathologist | | | | | At | Signature | + + + + + + | Protein, | 7.1 | 6.3 - 8.2 g/dL | [facility] | | | Total | | | LABORATORY | | + + + + + + | Albumin | 4.2 | 3.6 - 5.0 g/dL | [facility] | | | | | | LABORATORY | | + + + + + + | BILIRUBIN, | 0.8 | 0.1 - 1.5 mg/dL | [facility] | | | TOTAL | | | LABORATORY | | + + + + + + | Bilirubin | 0.5 (H) | 0.0 - 0.3 mg/dL | [facility] | | | Direct | | | LABORATORY | | + + + + + + | ALK PHOS | 123 (H) | 35 - 115 U/L | [facility] | | | | | | LABORATORY | | + + + + + + | AST | 19 | 10 - 45 U/L | [facility] | | | | | | LABORATORY | | + + + + + + | ALT | 29Comment: Testing | 10 - 65 U/L | [facility] | | | | performed at [facility];[address] | | LABORATORY | | | | [address];[place] | | | | | | [address] | | | | + + + + + + + + | Specimen | + + | | + + + + + + + | Performing | Address | City/State/Zipcode | Phone Number | | Organization | | | | + + + + + | [facility] | [address] | [place] [address] | [phone] | + + + + + Troponin I (07/16/2019 9:26 AM PDT) + + + + + + | Component | Value | Ref Range | Performed | Pathologist | | | | | At | Signature | + + + + + + | Troponin I | 0.065 (H)Comment: 0.04 | 0.00 - 0.04 | [facility] | | | | ng/mL or less [...] at | | | | | | [facility];[address] [place] [address] | | | | | | Blvd;[place] [address] | | | | + + + + + + + + | Specimen | + + | Blood | + + + + + + + | Performing | Address | City/State/Zipcode | Phone Number | | Organization | | | | + + + + + | [facility] | [address] | [place] [address] | [phone] | + + + + + XR Chest AP Portable (07/15/2019 4:49 PM PDT) + + | Specimen | + + | | + + + + + | Impressions | Performed At | + + + | Increasing large right pleural effusion and underlying right lung | [facility] | | atelectasis. Signed by: Eliza Gracia, Anahy Sign Date/Time: | | | 07/15/2019 5:26 PM | | + + + + + + | Narrative | Performed At | + + + | CHEST PORTABLE ONE VIEW CLINICAL INFORMATION: Right sided | [facility] | | pleural effusion COMPARISON: CRCHEST (07/14/2019); XR CHEST | | | INSPIRATION AND EXPIRATION (04/23/2019); US GUIDED THORACENTESIS WO | | | CHEST TUBE (04/23/2019); XR CHEST 1 VIEW (04/22/2019); FINDINGS: | | | Large right pleural effusion has increased in size since 07/14/2019 and | | | there is increasing atelectasis and/or consolidation of the right | | | lung. No left effusion. No definite pneumothorax. | | + + + + + | Procedure Note | + + | Cedric, Rad Results In - 07/15/2019 5:30 PM PDT | | CHEST PORTABLE ONE VIEW | | | | CLINICAL INFORMATION: | | Right sided pleural effusion | | | | COMPARISON: | | CRCHEST (07/14/2019); XR CHEST INSPIRATION AND EXPIRATION (04/23/2019); | | US GUIDED THORACENTESIS WO CHEST TUBE (04/23/2019); XR CHEST 1 VIEW | | (04/22/2019); | | | | FINDINGS: | | Large right pleural effusion has increased in size since 07/14/2019 and | | there is increasing atelectasis and/or consolidation of the right lung. | | No left effusion. No definite pneumothorax. | | | | IMPRESSION: | | Increasing large right pleural effusion and underlying right lung | | atelectasis. | | | | | | | | Signed by: Eliza Gracia Amy | | Sign Date/Time: 07/15/2019 5:26 PM | + + + +---------+ + + | Performing | Address | City/State/Zipcode | Phone Number | | Organization | | | | + +---------+ + + | [facility] | | | | + +---------+ + + Magnesium (07/15/2019 4:57 AM PDT) + + + + + + | Component | Value | Ref Range | Performed | Pathologist | | | | | At | Signature | + + + + + + | Magnesium | 2.1Comment: Testing | 1.7 - 2.4 mg/dL | [facility] | | | | performed at [facility], [address] | | LABORATORY | | | | [address], | | | | | | [place] [address] | | | | + + + + + + + + | Specimen | + + | | + + + + + + + | Performing | Address | City/State/Zipcode | Phone Number | | Organization | | | | + + + + + | [facility] | [address] [facility] | [place] [address] | [phone] | + + + + + CBC with Differential (07/15/2019 4:57 AM PDT) + + + + + + | Component | Value | Ref Range | Performed | Pathologist | | | | | At | Signature | + + + + + + | WBC | 5.43 | 3.80 - 11.00 | [facility] | | | | | K/uL | LABORATORY | | + + + + + + | Red Blood | 2.69 (L) | 3.70 - 5.10 | [facility] | | | Cells | | M/uL | LABORATORY | | + + + + + + | Hemoglobin | 9.4 (L) | 11.3 - 15.5 | [facility] | | | | | g/dL | LABORATORY | | + + + + + + | Hematocrit | 30.3 (L) | 34.0 - 46.0 % | [facility] | | | | | | LABORATORY | | + + + + + + | MCV | 112.6 (H) | 80.0 - 100.0 fl | [facility] | | | | | | LABORATORY | | + + + + + + | MCH | 34.9 (H) | 27.0 - 34.0 pg | [facility] | | | | | | LABORATORY | | + + + + + + | MCHC | 31.0 (L) | 32.0 - 35.5 | [facility] | | | | | g/dL | LABORATORY | | + + + + + + | RDW-SD | 57.0 (H) | 37 - 53 fl | [facility] | | | | | | LABORATORY | | + + + + + + | Platelet | 103 (L) | 150 - 400 K/uL | [facility] | | | Count | | | LABORATORY | | + + + + + + | MPV | 11.9Comment: NO NORMAL | fl | [facility] | | | | RANGE ESTABLISHED | | LABORATORY | | + + + + + + | Diff Type | AUTOMATED | | [facility] | | | | | | LABORATORY | | + + + + + + | % nRBC | 0.0 | 0 /100WBC | [facility] | | | | | | LABORATORY | | + + + + + + | % | 72.50 | % | [facility] | | | Neutrophils | | | LABORATORY | | + + + + + + | IMMATURE | 0.20 | % | [facility] | | | GRANULOCYTE | | | LABORATORY | | + + + + + + | % | 9.40 | % | [facility] | | | Lymphocytes | | | LABORATORY | | + + + + + + | Monocyte % | 6.40 | % | [facility] | | | | | | LABORATORY | | + + + + + + | Eosinophils | 10.90 | % | [facility] | | | % | | | LABORATORY | | + + + + + + | Basophils % | 0.60 | % | [facility] | | | | | | LABORATORY | | + + + + + + | Neutrophils | 3.94 | 1.90 - 7.40 | [facility] | | | , Absolute | | K/uL | LABORATORY | | + + + + + + | IMMATURE | 0.01Comment: NOTE NEW | 0.00 - 0.07 | [facility] | | | GRANS AB | REFERENCE RANGE | K/uL | LABORATORY | | + + + + + + | Absolute | 0.51 (L) | 1.00 - 3.90 | [facility] | | | Lymphocytes | | K/uL | LABORATORY | | + + + + + + | Absolute | 0.35 | 0.00 - 0.80 | [facility] | | | Monocytes | | K/uL | LABORATORY | | + + + + + + | Eosinophils | 0.59 (H) | 0.00 - 0.50 | [facility] | | | , Absolute | | K/uL | LABORATORY | | + + + + + + | Basophils, | 0.03Comment: Testing | 0.00 - 0.10 | [facility] | | | Absolute | performed at [facility], [address] | K/uL | LABORATORY | | | | [address], | | | | | | [place] [address] | | | | + + + + + + + + | Specimen | + + | | + + + + + + + | Performing | Address | City/State/Zipcode | Phone Number | | Organization | | | | + + + + + | [facility] | [address] | [place] [address] | [phone] | + + + + + Renal Function Panel (07/15/2019 4:57 AM PDT) + + + + + + | Component | Value | Ref Range | Performed | Pathologist | | | | | At | Signature | + + + + + + | Na | 135 | 135 - 145 | [facility] | | | | | mmol/L | LABORATORY | | + + + + + + | K | 4.9 | 3.5 - 4.9 | [facility] | [...] + + + | Anion Gap | 12 | 5 - 20 mmol/L | [facility] | | | | | | LABORATORY | | + + + + + + | Glucose | 90 | 65 - 99 mg/dL | [facility] | | | | | | LABORATORY | | + + + + + + | BUN | 37 (H) | 8 - 25 mg/dL | [facility] | | | | | | LABORATORY | | + + + + + + | Creatinine | 7.0 (H) | 0.50 - 1.00 | [facility] | | | | | mg/dL | LABORATORY | | + + + + + + | Calcium | 9.2 | 8.5 - 10.5 | [facility] | | | | | mg/dL | LABORATORY | | + + + + + + | Albumin | 3.1 (L) | 3.6 - 5.0 g/dL | [facility] | | | | | | LABORATORY | | + + + + + + | Phosphorus | 7.3 (H) | 2.3 - 4.8 mg/dL | [facility] | | | | | | LABORATORY | | + + + + + + | Estimated | 7 (L)Comment: GFR <60: | >60 | [facility] [...] [address] | | | | | | [facility], | | | | | | [place], [place] [address] | | | | + + + + + + + + | Specimen | + + | Blood | + + + + + + + | Performing | Address | City/State/Zipcode | Phone Number | | Organization | | | | + + + + + | [facility] | [address] | [place] [address] | [phone] | + + + + + Hepatitis B Surface Ag (07/14/2019 8:18 PM PDT) + + + + + + | Component | Value | Ref Range | Performed | Pathologist | | | | | At | Signature | + + + + + + | Hepatitis B | NegativeComment: Testing | Negative | [facility] | | | Surface Ag | performed at [facility], | | LABORATORY | | | | [address] [facility] [address], | | | | | | [facility] [address] | | | | + + + + + + + + | Specimen | + + | Blood | + + + + + + + | Performing | Address | City/State/Zipcode | Phone Number | | Organization | | | | + + + + + | [facility] | [address] | [place] [address] | [phone] | + + + + + ECG 12 lead (07/14/2019 4:52 PM PDT) + + + + + + | Component | Value | Ref Range | Performed | Pathologist | | | | | At | Signature | + + + + + + | VENTRICULAR | 93 | BPM | [facility] | | | RATE EKG | | | | | + + + + + + | ATRIAL RATE | 93 | BPM | [facility] | | + + + + + + | P-R | 178 | ms | [facility] | | | INTERVAL | | | | | + + + + + + | QRS | 86 | ms | [facility] | | | DURATION | | | | | + + + + + + | Q-T | 372 | ms | [facility] | | | INTERVAL | | | | | + + + + + + | Q-T | 462 | ms | [facility] | | | INTERVAL | | | | | | (CORRECTED) | | | | | + + + + + + | P WAVE AXIS | 32 | degrees | [facility] | | + + + + + + | QRS AXIS | -34 | degrees | [facility] | | + + + + + + | T AXIS | 67 | degrees | [facility] | | + + + + + + | INTERPRETAT | Sinus rhythm with Fusion | | [facility] | | | ION TEXT | complexesLeft axis | | | | | | deviationAbnormal | | | | | | ECGWhen compared with | | | | | | ECG of 22-APR-2019 | | | | | | 08:19,Fusion complexes | | | | | | are now PresentT wave | | | | | | inversion no longer | | | | | | evident in Lateral | | | | | | leadsThis ECG contains | | | | | | Unconfirmed | | | | | | Interpretation | | | | | | Statements. See ED | | | | | | Record for Physician | | | | | | Interpretation. | | | | | | Confirmed by MUSE READ | | | | | | ONLY, -COMPUTER ([id number]), | | | | | | editor magazine Jaymie Thakur | | | | | | ([id number]) on 07/15/2019 | | | | | | 3:08:34 AM | | | | + + [...] + | Diagnosis | + + | Acute on chronic respiratory failure with hypoxia (HCC) - Primary | + + | Shortness of breath | + + | ESRD on dialysis (HCC) End stage renal disease | + + | Acute pulmonary edema (HCC) Acute edema of lung, unspecified | + + | At high risk for electrolyte imbalance | + + | Chronic 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) Chronic combined systolic | | and diastolic heart failure | + + | Noncompliance Personal history of noncompliance with medical treatment, presenting | | hazards to health | + + | Pleural effusion, not elsewhere classified | + + | Acute on chronic combined systolic and diastolic CHF (congestive heart failure) (HCC) | + + | Anemia in ESRD (end-stage renal disease) (HCC) Anemia in chronic kidney disease | + + | ESRD on hemodialysis (HCC) End stage renal disease | + + | Moderate to severe pulmonary hypertension (HCC) Other chronic pulmonary heart | | diseases | + + | Uncontrolled hypertension Unspecified essential hypertension | + + | Recurrent right pleural effusion Unspecified pleural effusion | + + | Weakness generalized Other malaise and fatigue | + + documented in this encounter Administered Medications + +--------+ +--------+------+------+ | Medication Order | MAR | Action | Dose | Rate | Site | | | Action | Date | | | | + +--------+ +--------+------+------+ | acetaminophen (TYLENOL) tablet | Given | 07/17/19 | 650 mg | | | | 650 mg 650 mg, Oral, EVERY 4 | | 20 3:43 | | | | | HOURS PRN, Pain, or fever >= 38.6 | | AM PDT | | | | | C (101.5 F), Starting Sun | | | | | | | 07/14/19 at 1837 | | | | | | + +--------+ +--------+------+------+ +-------+ +--------+---+---+ | Given | 07/16/19 | 650 mg | | | | | 20 11:59 | | | | | | AM PDT | | | | +-------+ +--------+---+---+ + +---+ | | | + +---+ | albumin 25% IVPB 12.5 g 12.5 | | | g, Intravenous, Administer over | | | 60 Minutes, DIALYSIS - PRN, | | | Hypotension, Starting Little 07/18/19 | | | at 0837, For 2 doses, For BP | | | less than 90 mm Hg. DIALYSIS USE | | | ONLY - DISCONTINUE AFTER | | | DIALYSIS THERAPY IS COMPLETE, | | | Treatment date(s): 07/18/2019, | | | Dialysis, Indications: | | | Hemodialysis Procedure | | + +---+ | | | + +---+ + +-------+ +--------+---+---+ | aluminum & magnesium | Given | 07/16/19 | 30 mLs | | | | hydroxide-simethicone (MAALOX | | 20 8:00 | | | | | PLUS REGULAR STRENGTH) 200-200-20 | | PM PDT | | | | | mg/5 mL 22.5 mL, lidocaine | | | | | | | (XYLOCAINE) 2% 7.5 mL liquid 30 | | | | | | | mL, Oral, ONCE, 07/16/19 at | | | | | | | 1830, For 1 dose, Mix Maalox Plus | | | | | | | 30 ml, Lidocaine viscous 2% 10 | | | | | | | ml to formulate mixture., | | | | | | + +-------+ +--------+---+---+ +---+---+ | | | +---+---+ + +-------+ +--------+---+---+ | aluminum & magnesium | Given | 07/18/19 | 30 mLs | | | | hydroxide-simethicone (MAALOX | | 20 2:05 | | | | | PLUS REGULAR STRENGTH) 200-200-20 | | PM PDT | | | | | mg/5 mL suspension 30 mL 30 mL, | | | | | | | Oral, EVERY 4 HOURS PRN, | | | | | | | Indigestion, Starting 07/14/19 | | | | | | | at 1837, Shake well., | | | | | | + +-------+ +--------+---+---+ +---+---+ | | | +---+---+ + +-------+ + +---+---+ | | Given | 07/16/19 | 1 tablet | | | | sqyaqyfyvq-nwnbcovgmanbn-analgxvx | | 20 1:51 | | | | | 50-325-40 mg per tablet 1 tablet | | PM PDT | | | | | 1 tablet, Oral, ONCE, Tue | | | | | | | 07/16/19 at 1030, For 1 dose, | | | | | | | Maximum 6 tablets per day., | | | | | | + +-------+ + +---+---+ +---+---+ | | | +---+---+ + +-------+ + +---+---+ | calcium carbonate (TUMS) | Given | 07/17/19 | 1,000 mg | | | | chewable tablet 1,000 mg 1,000 | | 20 2:27 | | | | | mg, Oral, EVERY 4 HOURS PRN, | | PM PDT | | | | | Indigpalakion, Starting 07/17/19 | | | | | | | at 1304 | | | | | | + +-------+ + +---+---+ +---+---+ | | | +---+---+ + +-------+ +---------+---+---+ | carvedilol (COREG) tablet 12.5 | Given | 07/18/19 | 12.5 mg | | | | mg 12.5 mg, Oral, 2 TIMES DAILY, | | 20 12:34 | | | | | First dose on 07/14/19 at | | PM PDT | | | | | 2100 | | | | | | + +-------+ +---------+---+---+ +-------+ +---------+---+---+ | Given | 07/17/19 | 12.5 mg | | | | | 20 8:36 | | | | | | PM PDT | | | | +-------+ +---------+---+---+ | Given | 07/17/19 | 12.5 mg | | | | | 20 12:22 | | | | | | PM PDT | | | | +-------+ +---------+---+---+ +---+---+ | | | +---+---+ + +-------+ +-------+---+---+ | clopidogrel (PLAVIX) tablet 75 | Given | 07/18/19 | 75 mg | | | | mg 75 mg, Oral, DAILY, First | | 20 12:35 | | | | | dose (after last reorder) on Mon | | PM PDT | | | | | 07/15/19 at 1700 | | | | | | + +-------+ +-------+---+---+ +-------+ +-------+---+---+ | Given | 07/17/19 | 75 mg | | | | | 20 12:23 | | | | | | PM PDT | | | | +-------+ +-------+---+---+ | Given | 07/16/19 | 75 mg | | | | | 20 9:10 | | | | | | AM PDT | | | | +-------+ +-------+---+---+ +---+---+ | | | +---+---+ + +-------+ +-----+---+---+ | diclofenac (VOLTAREN) 1% gel 4 | Given | 07/16/19 | 4 g | | | | g 4 g, Topical, 4 TIMES DAILY, | | 20 5:41 | | | | | First dose on Tu07/16/19 at | | PM PDT | | | | | 0930, Do not cover area with | | | | | | | occlusive dressings or wash area | | | | | | | for 1 hour after application. Use | | | | | | | the dosing card to correctly | | | | | | | measure each dose. (2 g = 2.25 | | | | | | | inches, 4 g = 4.5 inches) After | | | | | | | using the dosing card, hold end | | | | | | | with fingertips, rinse and dry. | | | | | | | Store dosing card until next | | | | | | | use., Apply to: Other (Comment), | | | | | | | Other location: neck | | | | | | + +-------+ +-----+---+---+ +-------+ +-----+---+---+ | Given | 07/16/19 | 4 g | | | | | 20 12:00 | | | | | | PM PDT | | | | +-------+ +-----+---+---+ +---+---+ | | | +---+---+ + +-------+ +---------+---+---+ | epoetin jenna-epbx (RETACRIT) | Given | 07/15/19 | 10,000 | | | | 10,000 units/mL injection 10,000 | | 20 11:00 | Units | | | | Units 10,000 Units, Intravenous, | | AM PDT | | | | | DIALYSIS - ONCE, 07/15/19 at | | | | | | | 1000, For 1 dose, Keep in | | | | | | | refrigerator. Do not shake., | | | | | | | ESRD-related (i.e. dialysis) | | | | | | | indication? Yes, Dialysis | | | | | | + +-------+ +---------+---+---+ +---+---+ | | | +---+---+ + +-------+ +---------+---+---+ | epoetin jenna-epbx (RETACRIT) | Given | 07/17/19 | 10,000 | | | | 10,000 units/mL injection 10,000 | | 20 9:29 | Units | | | | Units 10,000 Units, Intravenous, | | AM PDT | | | | | ONCE, [facility] 07/17/19 at 0830, For 1 | | | | | | | dose, Keep in refrigerator. Do | | | | | | | not shake., ESRD-related (i.e. | | | | | | | dialysis) indication? Yes, | | | | | | | Dialysis | | | | | | + +-------+ +---------+---+---+ +---+---+ | | | +---+---+ + +---------+ + +-------+---+ | heparin (dialysis) 1,000 | New Bag | 07/14/19 | 500 | 0.5 | | | units/mL infusion 500 Units/hr | | 20 8:37 | Units/hr | mL/hr | | | (0.5 mL/hr), at 0.5 mL/hr, | | PM PDT | | | | | Intravenous, DIALYSIS - | | | | | | | CONTINUOUS, Starting 07/14/19 | | | | | | | at 2045, For 2 hours, DIALYSIS | | | | | | | USE ONLY - DISCONTINUE AFTER | | | | | | | DIALYSIS IS COMPLETE, Treatment | | | | | | | date(s): 07/14/2019, Dialysis | | | | | | + +---------+ + +-------+---+ +---+---+ | | | +---+---+ + +---------+ + +-------+---+ | heparin (dialysis) 1,000 | New Bag | 07/15/19 | 500 | 0.5 | | | units/mL infusion 500 Units/hr | | 20 10:21 | Units/hr | mL/hr | | | (0.5 mL/hr), at 0.5 mL/hr, | | AM PDT | | | | | Intravenous, DIALYSIS - | | | | | | | CONTINUOUS, Starting 07/15/19 | | | | | | | at 1000, For 2 days, DIALYSIS USE | | | | | | | ONLY - DISCONTINUE AFTER | | | | | | | DIALYSIS IS COMPLETE, Treatment | | | | | | | date(s): 07/15/2019, Dialysis | | | | | | + +---------+ + +-------+---+ +---+---+ | | | +---+---+ + +---------+ + +-------+ + | heparin (dialysis) 1,000 | New Bag | 07/17/19 | 500 | 0.5 | Left Arm | | units/mL infusion 500 Units/hr | | 20 7:29 | Units/hr | mL/hr | | | (0.5 mL/hr), at 0.5 mL/hr, | | AM PDT | | | | | Intravenous, DIALYSIS - | | | | | | | CONTINUOUS, Starting 07/17/19 | | | | | | | at 0700, For 3 hours, DIALYSIS | | | | | | | USE ONLY - DISCONTINUE AFTER | | | | | | | DIALYSIS IS COMPLETE, Treatment | | | | | | | date(s): 07/17/2019, Dialysis | | | | | | + +---------+ + +-------+ + +---+---+ | | | +---+---+ + +---------+ + +-------+---+ | heparin (dialysis) 1,000 | New Bag | 07/18/19 | 500 | 0.5 | | | units/mL infusion 500 Units/hr | | 20 8:59 | Units/hr | mL/hr | | | (0.5 mL/hr), at 0.5 mL/hr, | | AM PDT | | | | | Intravenous, DIALYSIS - | | | | | | | CONTINUOUS, Starting Little 07/18/19 | | | | | | | at 0900, DIALYSIS USE ONLY - | | | | | | | DISCONTINUE AFTER DIALYSIS IS | | | | | | | COMPLETE, Treatment date(s): | | | | | | | 07/18/2019, Dialysis | | | | | | + +---------+ + +-------+---+ +---+---+ | | | +---+---+ + +-------+ +--------+---+---+ | heparin (dialysis) 1,000 | Given | 07/14/19 | 1,000 | | | | units/mL injection 1,000 Units | | 20 8:33 | Units | | | | 1,000 Units, Intravenous, | | PM PDT | | | | | DIALYSIS - ONCE, 07/14/19 at | | | | | | | 2045, For 1 dose, DIALYSIS USE | | | | | | | ONLY - DISCONTINUE AFTER DIALYSIS | | | | | | | IS COMPLETE, Treatment date(s): | | | | | | | 07/14/2019, Dialysis | | | | | | + +-------+ +--------+---+---+ +---+---+ | | | +---+---+ + +-------+ +--------+---+---+ | heparin (dialysis) 1,000 | Given | 07/15/19 | 1,000 | | | | units/mL injection 1,000 Units | | 20 10:18 | Units | | | | 1,000 Units, Intravenous, | | AM PDT | | | | | DIALYSIS - ONCE, 07/15/19 at | | | | | | | 1000, For 1 dose, DIALYSIS USE | | | | | | | ONLY - DISCONTINUE AFTER DIALYSIS | | | | | | | IS COMPLETE, Treatment date(s): | | | | | | | 07/15/2019, Dialysis | | | | | | + +-------+ +--------+---+---+ +---+---+ | | | +---+---+ + +-------+ +--------+---+ + | heparin (dialysis) 1,000 | Given | 07/17/19 | 1,000 | | Left Arm | | units/mL injection 1,000 Units | | 20 7:24 | Units | | | | 1,000 Units, Intravenous, | | AM PDT | | | | | DIALYSIS - ONCE, 07/17/19 at | | | | | | | 0700, For 1 dose, DIALYSIS USE | | | | | | | ONLY - DISCONTINUE AFTER DIALYSIS | | | | | | | IS COMPLETE, Treatment date(s): | | | | | | | 07/17/2019, Dialysis | | | | | | + +-------+ +--------+---+ + +---+---+ | | | +---+---+ + +-------+ +--------+---+---+ | heparin (dialysis) 1,000 | Given | 05/14/20 | 1,000 | | | | units/mL injection 1,000 Units | | 20 8:59 | Units | | | | 1,000 Units, Intravenous, WITH | | AM PDT | | | | | EACH DIALYSIS, Starting Little | | | | | | | 07/18/19 at 0836, DIALYSIS USE | | | | | | | ONLY - DISCONTINUE AFTER DIALYSIS | | | | | | | IS COMPLETE, Treatment date(s): | | | | | | | 07/18/2019, Dialysis | | | | | | + +-------+ +--------+---+---+ +---+---+ | | | +---+---+ + +-------+ +-------+---+---+ | hydrALAZINE (APRESOLINE) | Given | 07/14/19 | 10 mg | | | | injection 10 mg 10 mg, | | 20 11:14 | | | | | Intravenous, EVERY 4 HOURS PRN, | | PM PDT | | | | | FOR SBP >160, Starting Sun | | | | | | | 07/14/19 at 2307 | | | | | | + +-------+ +-------+---+---+ +---+---+ | | | +---+---+ + +-------+ + +---+---+ | HYDROcodone-acetaminophen | Given | 07/15/19 | 1 tablet | | | | (NORCO) 5-325 mg per tablet 1 | | 20 11:26 | | | | | tablet 1 tablet, Oral, EVERY 6 | | AM PDT | | | | | HOURS PRN, Mild Pain, Moderate | | | | | | | Pain, Starting 07/14/19 at | | | | | | | 1837 | | | | | | + +-------+ + +---+---+ +-------+ + +---+---+ | Given | 07/15/19 | 1 tablet | | | | | 20 6:38 | | | | | | AM PDT | | | | +-------+ + +---+---+ | Given | 07/14/19 | 1 tablet | | | | | 20 11:42 | | | | | | PM PDT | | | | +-------+ + +---+---+ +---+---+ | | | +---+---+ + +-------+ +--------+---+---+ | HYDROmorphone (DILAUDID) | Given | 07/16/19 | 0.5 mg | | | | injection 0.5 mg 0.5 mg, | | 20 11:44 | | | | | Intravenous, ONCE, Mon07/16/19 at | | AM PDT | | | | | 1200, For 1 dose | | | | | | + +-------+ +--------+---+---+ +---+---+ | | | +---+---+ + +---------+ +---------+---+ + | lidocaine (LIDODERM) 5% patch 1 | Patch | 07/16/19 | 1 patch | | Back-Low | | patch 1 patch, Transdermal, | Applied | 20 10:43 | | | er | | DAILY, First dose on Mon07/16/19 | | AM PDT | | | Middle | | at 0930, Apply for 12 hours, then | | | | | | | remove for 12 hours. Kindly, | | | | | | | apply to neck region. Thank | | | | | | | you., Time to remove patch: 9:06 | | | | | | | AM | | | | | | + +---------+ +---------+---+ + +---+---+ | | | +---+---+ + +-------+ +------+---+---+ | melatonin tablet 3 mg 3 mg, | Given | 07/17/19 | 3 mg | | | | Oral, NIGHTLY, First dose on Sun | | 20 8:36 | | | | | 07/14/19 at 2100 | | PM PDT | | | | + +-------+ +------+---+---+ +-------+ +------+---+---+ | Given | 07/16/19 | 3 mg | | | | | 20 9:10 | | | | | | PM PDT | | | | +-------+ +------+---+---+ | Given | 07/15/19 | 3 mg | | | | | 20 9:38 | | | | | | PM PDT | | | | +-------+ +------+---+---+ +---+---+ | | | +---+---+ + +-------+ +---------+---+---+ | mometasone (ASMANEX) 220 | Given | 07/18/19 | 2 puffs | | | | mcg/puff inhaler 2 puff 2 puff, | | 20 8:11 | | | | | Inhalation, DAILY, First dose on | | AM PDT | | | | | 07/15/19 at 1830 | | | | | | + +-------+ +---------+---+---+ +-------+ +---------+---+---+ | Given | 07/17/19 | 2 puffs | | | | | 20 12:19 | | | | | | PM PDT | | | | +-------+ +---------+---+---+ | Given | 07/17/19 | 2 puffs | | | | | 20 10:48 | | | | | | AM PDT | | | | +-------+ +---------+---+---+ +---+---+ | | | +---+---+ + +-------+ +--------+---+---+ | nitroglycerin (NITRO-BID) 2% | Given | 07/16/19 | 0.5 | | | | ointment 0.5 inch 0.5 inch, | | 20 11:49 | inches | | | | Topical, EVERY 6 HOURS (4 times | | PM PDT | | | | | per day), First dose on Mon | | | | | | | 07/16/19 at 1200, Apply to: | | | | | | | Chest-Right Anterior | | | | | | + +-------+ +--------+---+---+ +-------+ +--------+---+---+ | Given | 07/16/19 | 0.5 | | | | | 20 5:41 | inches | | | | | PM PDT | | | | +-------+ +--------+---+---+ | Given | 07/16/19 | 0.5 | | | | | 20 11:59 | inches | | | | | AM PDT | | | | +-------+ +--------+---+---+ +---+---+ | | | +---+---+ + +-------+ +------+---+---+ | ondansetron (ZOFRAN ODT) | Given | 07/14/19 | 4 mg | | | | disintegrating tablet 4 mg 4 mg, | | 20 11:37 | | | | | Oral, EVERY 6 HOURS PRN, Nausea, | | PM PDT | | | | | Vomiting, Starting 07/14/19 | | | | | | | at 1837, First line agent, | | | | | | + +-------+ +------+---+---+ +---+---+ | | | +---+---+ + +-------+ +------+---+---+ | ondansetron (ZOFRAN) injection | Given | 07/18/19 | 4 mg | | | | 4 mg 4 mg, Intravenous, EVERY 6 | | 20 2:08 | | | | | HOURS PRN, Nausea, Vomiting, | | PM PDT | | | | | Starting 07/14/19 at 1837, | | | | | | | First line agent, | | | | | | + +-------+ +------+---+---+ +-------+ +------+---+---+ | Given | 07/18/19 | 4 mg | | | | | 20 8:09 | | | | | | AM PDT | | | | +-------+ +------+---+---+ | Given | 07/16/19 | 4 mg | | | | | 20 9:15 | | | | | | PM PDT | | | | +-------+ +------+---+---+ +---+---+ | | | +---+---+ + +-------+ +-------+---+---+ | oxyCODONE (ROXICODONE) tablet | Given | 07/18/19 | 10 mg | | | | 5-10 mg 5-10 mg, Oral, EVERY 4 | | 20 3:58 | | | | | HOURS PRN, Pain, Starting Mon | | PM PDT | | | | | 07/15/19 at 1541 | | | | | | + +-------+ +-------+---+---+ +-------+ +-------+---+---+ | Given | 07/18/19 | 10 mg | | | | | 20 10:30 | | | | | | AM PDT | | | | +-------+ +-------+---+---+ | Given | 07/18/19 | 10 mg | | | | | 20 5:06 | | | | | | AM PDT | | | | +-------+ +-------+---+---+ +---+---+ | | | +---+---+ + +-------+ +-------+---+---+ | pantoprazole (PROTONIX) DR | Given | 07/18/19 | 40 mg | | | | tablet 40 mg 40 mg, Oral, DAILY | | 20 6:36 | | | | | BEFORE BREAKFAST, First dose on | | AM PDT | | | | | 07/15/19 at 0730, Do not cut | | | | | | | or crush., Indication: GERD | | | | | | + +-------+ +-------+---+---+ +-------+ +-------+---+---+ | Given | 07/17/19 | 40 mg | | | | | 20 5:20 | | | | | | AM PDT | | | | +-------+ +-------+---+---+ +---+---+ | | | +---+---+ + +-------+ +---------+---+---+ | promethazine (PHENERGAN) (IV | Given | 07/14/19 | 12.5 mg | | | | ONLY) injection 12.5 mg 12.5 mg, | | 20 6:16 | | | | | Intravenous, ONCE, 07/14/19 | | PM PDT | | | | | at 1725, For 1 dose, Vesicant. | | | | | | | When ordered IV push: Dilute to | | | | | | | 10-20mL with NS. Give over 2-3 | | | | | | | minutes into large vein. Do not | | | | | | | give in hand/wrist or foot/ankle | | | | | | | vein. Max dose 12.5mg if giving | | | | | | | peripherally.Infuse in LARGE | | | | | | | Vein Only, | | | | | | + +-------+ +---------+---+---+ +---+---+ | | | +---+---+ + +-------+ +---------+---+---+ | promethazine (PHENERGAN) (IV | Given | 07/18/19 | 12.5 mg | | | | ONLY) injection 12.5 mg 12.5 mg, | | 20 11:15 | | | | | Intravenous, EVERY 6 HOURS PRN, | | AM PDT | | | | | Nausea, Vomiting, Starting Mon | | | | | | | 07/15/19 at 1141, Vesicant. When | | | | | | | ordered IV push: Dilute to | | | | | | | 10-20mL with NS. Give over 2-3 | | | | | | | minutes into large vein. Do not | | | | | | | give in hand/wrist or foot/ankle | | | | | | | vein. Max dose 12.5mg if giving | | | | | | | peripherally.Infuse in LARGE | | | | | | | Vein Only, | | | | | | + +-------+ +---------+---+---+ +-------+ +---------+---+---+ | Given | 07/18/19 | 12.5 mg | | | | | 20 5:07 | | | | | | AM PDT | | | | +-------+ +---------+---+---+ | Given | 07/17/19 | 12.5 mg | | | | | 20 8:37 | | | | | | PM PDT | | | | +-------+ +---------+---+---+ +---+---+ | | | +---+---+ + +-------+ +-------+---+---+ | promethazine (PHENERGAN) tablet | Given | 07/16/19 | 25 mg | | | | 25 mg 25 mg, Oral, EVERY 8 | | 20 7:10 | | | | | HOURS PRN, Nausea, Vomiting, | | AM PDT | | | | | Starting 07/14/19 at 1837 | | | | | | + +-------+ +-------+---+---+ +-------+ +-------+---+---+ | Given | 07/16/19 | 25 mg | | | | | 20 3:32 | | | | | | AM PDT | | | | +-------+ +-------+---+---+ +---+---+ | | | +---+---+ + +-------+ + +---+---+ | sevelamer carbonate (RENVELA) | Given | 07/18/19 | 1,600 mg | | | | tablet 1,600 mg 1,600 mg, Oral, | | 20 4:14 | | | | | 3 TIMES DAILY WITH MEALS, First | | PM PDT | | | | | dose on Mon07/15/19 at 1700, Do | | | | | | | not cut or crush tablets., | | | | | | + +-------+ + +---+---+ +-------+ + +---+---+ | Given | 07/18/19 | 1,600 mg | | | | | 20 12:34 | | | | | | PM PDT | | | | +-------+ + +---+---+ | Given | 07/18/19 | 1,600 mg | | | | | 20 6:37 | | | | | | AM PDT | | | | +-------+ + +---+---+ + +---+ | | | + +---+ | sodium chloride 0.9% (NS) bolus | | | 100 mL 100 mL, Intravenous, | | | Administer over 15 Minutes, | | | DIALYSIS - PRN, Hypotension, | | | Starting Tu07/16/19 at 0648, | | | Treatment date(s): 07/16/2019, For | | | BP less than [...] - PRN, Hypotension, | | | Starting Mon07/17/19 at 0624, | | | Treatment date(s): 07/17/2019, For | | | BP less than 100 mm Hg. Give | | | 100 mL bolus up to 1000 mL. | | | DIALYSIS USE ONLY - DISCONTINUE | | | AFTER DIALYSIS THERAPY IS | | | COMPLETE, Dialysis | | + +---+ | | | + +---+ + +-------+ +-------+---+---+ | valsartan (DIOVAN) tablet 40 mg | Given | 07/18/19 | 40 mg | | | | 40 mg, Oral, DAILY, First dose | | 20 12:35 | | | | | on 07/15/19 at 1700 | | PM PDT | | | | + +-------+ +-------+---+---+ +-------+ +-------+---+---+ | Given | 07/17/19 | 40 mg | | | | | 20 12:20 | | | | | | PM PDT | | | | +-------+ +-------+---+---+ | Given | 07/16/19 | 40 mg | | | | | 20 9:09 | | | | | | AM PDT | | | | +-------+ +-------+---+---+ +---+---+ | | | +---+---+ documented in this encounter
--- OUTSIDE RECORDS SUMMARY | ~2019-12-21 | XMS | Encounter Summary ---
Demographics + + + | Address | [address] | | | [place] [address] | + + + | Home Phone | | + + + | Preferred Language | Unknown | + + + | Marital Status | Single | + + + | Rastafari Affiliation | Unknown | + + + | Race | White | + + + | Ethnic Group | Not or | + + + Author + + + | Author | [facility] | | | and [place] | + + + | Organization | [facility] | | | [...] Team Providers + +------+ + | Care Leg Assembler Name | Role | Phone | + +------+ + PCP | Unavailable | + +------+ + Encounter Details +--------+ + + + + | Date | Type | Department | Care Team | Description | +--------+ + + + + | 02/20/ | Abstract | [facility] | Blake Chavarria | | | 2013 | | SURGERY [address] | MD Antonieta, FACS [address] | | | | | [facility], [place] | [facility] | | | | | [id number] | [place] [address] | | | | | [phone] | [phone] | | | | | | | [...] + + + | EXTERNAL LAB: | Routin | 01/11/2014 | | Results for this | | CREATININE | e | | | procedure are in the | | | | | | results section. | + +--------+ + + + documented in this encounter Results External Lab: Creatinine (01/11/2014) + +-------+ + + + | Component | Value | Ref Range | Performed | Pathologist | | | | | At | Signature | + +-------+ + + + | Creatinine, | 10.5 | | | | | External | | | | | + +-------+ + + + + + | Specimen | + + | Blood specimen | | (specimen) | + + documented in this encounter Visit Diagnoses Not on filedocumented in this encounter"
--- OUTSIDE RECORDS SUMMARY | ~2019-12-21 | XMS | Encounter Summary ---
Demographics + + + | Address | [address] | | | [place] [address] | + + + | Home Phone [...] Author + + + | Author | [facility] | | | and [place] | + + + | Organization | [facility] | | | [...] Team Providers + +------+ + | Care Flag Decorator Name | Role | Phone | + +------+ + | Tien Nicholson MD | PCP | | + +------+ + Encounter Details +--------+ + + + + | Date | Type | Department | Care Team | Description | +--------+ + + + + | 10/17/ | Hospital | [facility] | [place], | SOB (shortness of | | 2019 - | Encounter | [facility] | MD Naresh [address] | breath); Pleural | | | | CARE FLOOR [phone] | effusion on right; | | 10/20/ | | [address] | [place] [address] | ESRD needing | | 2019 | | [place], [place] | [phone] | dialysis ([facility]); End | | | | [id number] | | stage renal disease | | | | [phone] | | (HCC) | +--------+ + + [...] | Blood Pressure | 115/68 | 10/19/2018 11:12 PM | | | | | PDT | | + + + + + | Pulse | 77 | 10/19/2018 11:12 PM | | | | | PDT | | + + + + + | Temperature | 36.7 C (98.1 F) | 10/19/2018 11:12 PM | | | | | PDT | | + + + + + | Respiratory Rate | 18 | 10/19/2018 11:12 PM | | | | | PDT | | + + + + + | Oxygen Saturation | - | - | | + + + + + | Inhaled Oxygen | - | - | | | Concentration | | | | + + + + + | Weight | 65.4 kg (144 lb 2.9 | 10/19/2018 11:12 PM | | | | oz) | PDT | | + + + + + | Height | 170.2 cm (5' 7") | 10/19/2018 11:12 PM | | | | | PDT | | + + + + + | Body Mass Index | 22.58 | 10/19/2018 11:12 PM | | | | | PDT | | + + + + + documented in this encounter Medications at Time [...] | | | | | renal disease) ([facility]) | protocol | | | [...] + + +---------+ + + | B Bjhodab-I-Uogcc | Take 1 tablet by | | [...] (three) times daily | | | | 0 | | | as needed for | [...] Progress Notes Conversion Transaction, Provider Unknown - 10/19/2018 11:58 PM PDTFormatting of this note m ight be different from the original. Nurse Progress Note by Vira Ford RN at 10/19/182357 Author: Vira Ford RN Service: (none) Author Type: Registered Nurse Filed: 10/19/182357 Date of Service: 10/19/182357 Status: Signed Payroll And Benefits Manager: Vira Ford RN (Registered Nurse) No acute changes from shift assessment. VSS. Pt medicated for pain x1 and nausea x2. End of shift review and 24 hour chart check complete. onver arturo Transaction, Provider Unknown - 10/19/2018 6:27 PM PDT Nurse Progress Note by Trent Jovel RN at 10/19/181826 Author: Trent Jovel RN Service: (none) Author Type: Registered Nurse Filed: 10/19/181827 Date of Service: 10/19/181826 Status: Signed Payroll And Benefits Manager: Trent Jovel RN (Registered Nurse) Dialysis completed today 2.4L removed. Remains on fluid restriction. Medicated for pain x 2. End of shift review complete. Trent Jovel RN onver arturo Transaction, Provider Unknown - 10/19/2018 3:36 PM PDT Case Management by DORON Diallo at 10/19/181535 Author: DORON Diallo Service: (none) Author Type: Inductor Tester Filed: 10/19/181536 Date of Service: 10/19/181535 Status: Signed Payroll And Benefits Manager: DORON Diallo (Inductor Tester) Discharge planning: Return home when medically ready for discharge. Pt is receiving dialysi s on MWF. Pt is currently on 4L O2, pt may need a home O2 evaluation at discharge. Antonio Carrasco MD - 10/19/2018 12:14 PM PDTFormatting of this note might be different from the orig inal. Progress Notes by Antonio Pabon MD at 10/19/18 7540 Author: Antonio Pabon MD Service: Nephrology Author Type: Physician Filed: 10/25/18 7597 Date of Service: 10/19/18 4469 Status: Addendum Payroll And Benefits Manager: Antonio Pabon MD (Physician) Related Notes: Original Note by Antonio Pabon MD (Physician) filed at 10/25/18 2311 Merged With [facility] Service: NEPHROLOGY Progress Note Dara Weldon 23 y.o. [id number] female TIEN NICHOLSON 23-year-old female with [...] AV FISTULA; Surgeon: Rik Simon MD; Location: [facility] MAIN OR; Service: Vascula r; Laterality: Left; cephalic AV FISTULA REPAIR Left 03/07/2014 Procedure: AV FISTULA - GRAFT REPAIR/REVISION; Surgeon: Rik Simon MD; Location: [facility] IN OR; Service: Vascular; Laterality: Left; DECLOT GRAFT Left 03/07/2014 Procedure: GRAFT - DECLOT; Surgeon: Rik Simon MD; Location: [facility] MA[facility] OR; Service: Vas cular; Laterality: Left; DIALYSIS FISTULA CREATION N/A 04/08/2014 Procedure: DIALYSIS CATHETER - INSERTION; Surgeon: Rik Simon MD; Location: [facility] MAIN OR ; Service: Vascular; Laterality: N/A; tunneled catheter LAPAROSCOPIC PERITONEAL DIALYSIS CATHETER INSERTION x2 LAPAROSCOPIC PERITONEAL DIALYSIS CATHETER INSERTION Right 07/2013 current dialysis access MWF dialysis RENAL BIOPSY Left 2003 SUPERFICIALIZATION OF AV FISTULA Left 06/24/2014 Procedure: AV FISTULA - SUPERFICIALIZATION; Surgeon: Rik Simon MD; Location: [facility] OR; Service: Vascular; Laterality: Left; No prescriptions [...] file Social History Narrative She lives in [facility]. She does not work. She [...] ral space is punctured with an 5 Kosovan Indicee centesis catheter. Fluid is aspirated without complication. [...] 1 VIEW (10/17/2018); CHEST TWO V IEWS [id number] (10/17/2018); FINDINGS: Compared to the prior examination [...] MR, severe TR.severe pulmonary hypertens ion Chest m-mpc-nfbtvsdpzztu with pulmonary edema and large right pleural [...] earlier and charting completed later Dictation software, [employer], used which may contain error for similar sounding words even af ter review. Personal communication requested for any clarification. Gerber Fernandez MD - 10/19/2018 7:48 AM PDT Progress Notes by Gerber Pearson MD at 10/19/18747 Author: Gerber Pearson MD Service: Hospitalist Author Type: Physician Filed: 10/19/18 0753 Date of Service: 10/19/18747 Status: Signed Payroll And Benefits Manager: Gerber Pearson MD (Physician) Merged With [facility] Service: Hospitalist Progress Note Hospital Day: LOS: 2 days Post-Op Day: * No surgery found * SUBJECTIVE Patient Summary: Admission H&P Dr. Hogue:" The patient is 23 y.o. female with significant past medical history of end-stage renal dise ase on hemodialysis Monday, Monday and Monday (nephrology Dr Anguiano), history of Henoch Sc honlein purpura, recurrent bilateral pleural effusions requiring thoracentesis, combined sys tolic and diastolic heart failure with ejection fraction of 20-25% who presents with dyspnea Patient was recently discharged from [facility] on 08/23/2018. For full note, please see discha rge summary from hospitalist. In summary, the patient was admitted for noncardiogenic pulmo nary edema after thoracentesis. At that point, prior to admission, she was [facility] at [facility] in [place] on 08/21 where she underwent right th [...] dyspnea improved, currently on 2 L oxygen, bai nning next cycle of hemodialysis Has been [...] F (36.9 C)] 97.2 F (36.2 C) (10/20 719) BP: (113-148)/(51-88) 127/62 (10/20 719) Heart Rate: [...] BUN 90 on admission -History of a Caliente Schnlein purpura -Last hemodialysis approximately 2 weeks [...] Code Status: Full Code Gerber Pearson MD 10/19/2018 onversion Transact ion, Provider Unknown - 10/19/2018 7:34 AM PDTFormatting of this note might be different fr om the original. Nurse Progress Note by Vira Ford RN at 10/19/18733 Author: Vira Ford RN Service: (none) Author Type: Registered Nurse Filed: 10/19/18733 Date of Service: 10/19/18733 Status: Signed Payroll And Benefits Manager: Vira Ford RN (Registered Nurse) No acute changes from shift assessment. VSS. Pt medicated for pain as requested and availab le. End of shift review and 24 hour chart check complete. onver arturo Transaction, Provider Unknown - 10/18/2018 5:01 PM PDT Case Management by DORON Diallo at 10/18/181700 Author: DORON Diallo Service: (none) Author Type: Inductor Tester Filed: 10/18/181706 Date of Service: 10/18/181700 Status: Signed Payroll And Benefits Manager: DORON Diallo (Inductor Tester) Discharge planning: Return home when medically ready for discharge. Gerber Fernandez MD - 10/18/2018 7:46 AM PDT Progress Notes by Gerber Pearson MD at 10/18/18745 Author: Gerber Pearson MD Service: Hospitalist Author Type: Physician Filed: 10/18/18 0751 Date of Service: 10/18/1846 Status: Signed Payroll And Benefits Manager: Gerber Pearson MD (Physician) Merged With [facility] Service: Hospitalist Progress Note Hospital Day: LOS: 1 day Post-Op Day: * No surgery found * SUBJECTIVE Patient Summary: Admission H&P Dr. Hogue:" The patient is 23 y.o. female with significant past medical history of end-stage renal dise ase on hemodialysis Monday, Monday and Monday (nephrology Dr Anguiano), history of Henoch Sc honlein purpura, recurrent bilateral pleural effusions requiring thoracentesis, combined sys tolic and diastolic heart failure with ejection fraction of 20-25% who presents with dyspnea Patient was recently discharged from [facility] on 08/23/2018. For full note, please see discha rge summary from hospitalist. In summary, the patient was admitted for noncardiogenic pulmo nary edema after thoracentesis. At that point, prior to admission, she was seen at the [facility] at [facility] in [place] on 08/21 where she underwent right th [...] in her life, recently her best friend sindy ssed away and her nephew had to [...] and again right large pleural effusion. Sh robina was hemodynamically stable on 2 L. She [...] BUN 90 on admission -History of a Caliente Schnlein purpura -Last hemodialysis approximately 2 weeks [...] Code Status: Full Code Gerber Pearson MD 10/18/2018 ntonio Pabon MD - 10/18/2018 7:45 AM PDT Progress Notes by Antonio Pabon MD at 10/18/18 0748 Author: Antonio Pabon MD Service: Nephrology Author Type: Physician Filed: 10/25/182002 Date of Service: 10/18/18744 Status: Signed Payroll And Benefits Manager: Antonio Pabon MD (Physician) Merged With [facility] Service: NEPHROLOGY Progress Note Dara Weldon 23 y.o. [id number]/[id number] female [facility] Day: LOS: 1 day 23-year-old female [...] AV FISTULA; Surgeon: Rik Simon MD; Location: [facility] MA[facility] OR; Service: Vascula r; Laterality: Left; cephalic AV FISTULA REPAIR Left 03/07/2014 Procedure: AV FISTULA - GRAFT REPAIR/REVISION; Surgeon: Rik Simon MD; Location: [facility] IN OR; Service: Vascular; Laterality: Left; DECLOT GRAFT Left 03/07/2014 Procedure: GRAFT - DECLOT; Surgeon: Rik Simon MD; Location: [facility] MAIN OR; Service: Vas cular; Laterality: Left; DIALYSIS FISTULA CREATION N/A 04/08/2014 Procedure: DIALYSIS CATHETER - INSERTION; Surgeon: Rik Simon MD; Location: [facility] MA[facility] OR ; Service: Vascular; Laterality: N/A; tunneled catheter LAPAROSCOPIC PERITONEAL DIALYSIS CATHETER INSERTION x2 LAPAROSCOPIC PERITONEAL DIALYSIS CATHETER INSERTION Right 07/2013 current dialysis access MWF dialysis RENAL BIOPSY Left 2003 SUPERFICIALIZATION OF AV FISTULA Left 06/24/2014 Procedure: AV FISTULA - SUPERFICIALIZATION; Surgeon: Rik Simon MD; Location: [facility] OR; Service: Vascular; Laterality: [...] file Social History Narrative She lives in [facility]. She does not work. She [...] QTC Calculation (Bezet) 469 ms Calculated P [place] 46 degrees Calculated R [place] 127 degrees Calculated T [place] 94 degrees Diagnosis Normal sinus rhythm Right [...] MR, severe TR.severe pulmonary hypertens ion Chest c-ime-khzranbvbvfr with pulmonary edema and large right pleural [...] earlier and charting completed later Dictation software, [employer], used which may contain error for similar sounding words even af ter review. Personal communication requested for any clarification. onversion Transaction, Provider Unknown - 10/18/2018 6:51 AM PDTFormatting of this note might be different from t he original. Nurse Progress Note by Ronnie Vargas RN at 10/18/18650 Author: Ronnie Vargas RN Service: (none) Author Type: Registered Nurse Filed: 10/18/1853 Date of Service: 10/18/18650 Status: Signed Payroll And Benefits Manager: Ronnie Vargas RN (Registered Nurse) Pt alert and oriented X 4. PRN pain med given for back pain. No other acute changes durin g shift. Chart check complete onver arturo Transaction, Provider Unknown - 10/17/2018 9:48 AM PDT Case Management by DORON Diallo at 10/17/18947 Author: DORON Diallo Service: (none) Author Type: Inductor Tester Filed: 10/17/1854 Date of Service: 10/17/18947 Status: Signed Payroll And Benefits Manager: DORON Diallo (Inductor Tester) 10/17/18 09 Discharge Planning Evaluation Admitting Diagnosis (SOB) Readmission Other (comment) (Last admit 08/20/18) Living Arrangements Alone Support Systems Family members;Friends/neighbors Type of Residence Private residence House type Apartment Independent with ADL's Yes Independent with Mobility Yes Home Care Services No Caregiver after Discharge No Mental Status Oriented Prior functional status (Independent) Power of Molder Apprentice No Resources Financial concerns No Transportation issues No Patient/Family concerns No Prescription Plan Yes Name of Pharmacy ([facility] in [place]) Previous home health equipment No Anticipated Disposition Facility Type Home SURG PHYSICIAN ASST CM met with pt and discussed discharge planning. Pt is a 23 y.o., female admitted for s hortness of breath. Pt resides alone in an apartment at [address], [address], [place] [address]. Pt reported that she has neighbor and friend support. Pt's mother, Thania cheung can be reached at and sister, Saundra can be reached at . Pt reported being independent with ADL's,, IADL's and mobility prior to this admission. Pt denied previous outpatient OT/PT services, home care services and home O2 prior to this admission. Pt reported that she received dialysis from [facility] on MWF prior to this admission . Pt reported that she was taking Plavix prior to admission. Patient's PCP is: Tien Nicholson MD Patient's insurance: Medicare/Medicaid Coverage concerns: No Medication coverage/concerns: No Rx Bedside Delivery: No Community resources utilized / needed: No Assistance in transportation: Pr reported that she able to call friends to arrange for [employer]in [employer] Identification of any specific education / training: No Barriers to Discharge / Alternative housing needed: No Anticipated DCP: Return home DORON Diallo, GALE onver arturo Transaction, Provider Unknown - 10/17/2018 7:44 AM PDT Pharmacy Note by aCmilla Moody RPH at 10/17/18743 Author: Camilla Moody RPH Service: Pharmacy Author Type: Pharmacist Filed: 10/17/18743 Date of Service: 10/17/18743 Status: Signed Payroll And Benefits Manager: Camilla Moody [facility] (Pharmacist) Clinical Pharmacy Note: Renal Monitoring Ht Readings from Last 1 Encounters: 10/17/18 1.702 m (5' 7.01") Wt Readings from Last 1 Encounters: 10/17/18 76.1 kg (167 lb 12.3 oz) Serum creatinine: 14.52 mg/dL (H) 10/17/18 0349 Estimated creatinine clearance: 6.5 mL/min (A) Patient w/ESRD on HD (MWF) Pharmacy dosing for renal function per Dr. Shelton Currently there are no medications requiring renal adjustment. Pharmacy will continue to mo nitor and adjust as clinically indicated. Camilla Moody, PharmEmanuel 10/17/2018 7:42 AM Gerber Fernandez MD - 10/17/2018 7:17 AM PDT Progress Notes by Gerber Pearson MD at 10/17/18716 Author: Gerber Pearson MD Service: Hospitalist Author Type: Physician Filed: 10/17/18 0747 Date of Service: 10/17/18716 Status: Signed Payroll And Benefits Manager: Gerber Pearson MD (Physician) Merged With [facility] Service: Hospitalist Progress Note Hospital Day: LOS: 0 days Post-Op Day: * No surgery found * SUBJECTIVE Patient Summary: Admission H&P Dr. Hogue:" The patient is 23 y.o. female with significant past medical history of end-stage renal dise ase on hemodialysis Monday, Monday and Monday (nephrology Dr Anguiano), history of Henoch Sc honlein purpura, recurrent bilateral pleural effusions requiring thoracentesis, combined sys tolic and diastolic heart failure with ejection fraction of 20-25% who presents with dyspnea Patient was recently discharged from [facility] on 08/23/2018. For full note, please see discha rge summary from hospitalist. In summary, the patient was admitted for noncardiogenic pulmo nary edema after thoracentesis. At that point, prior to admission, [facility] in [place] on [facility]/21 where she underwent right th oracentesis with removal of 2.5 L of fluid. She was sent home after the procedure and subse quently developed dyspnea with x-ray concerning for pulmonary edema. During hospitalization nephrology was consulted, she underwent hemodialysis on 08/21 and . Patient improved cli nically and radiologically and [...] leaving the hemodialysis due to anxiety problems. Patirobina nt refers that lately she is having a lot of stress in her life, recently her best friend sindy ssed away and her nephew had to [...] and again right large pleural effusion. Sh robina was hemodynamically stable on 2 L. She was admitted, she is scheduled for hemodialysis today. Currently seen at bedside awake alert though frail-appearing. Denies chest pain no fever Dr. Pabon has been consulted. I did discuss the case over the phone with patient's transit operator Dr. Mahmood, recommends medi oly management and [...] (10/17 0 654) BMI (Calculated): [26.3] 26.3 (08/14 0654) Physical Exam Constitutional: She appears well-developed. Awake [...] right pleural effusion. Signed by: Suha Echols Fely Sign Date/Time: 10/17/2018 4:25 AM PROBLEM LIST [...] creatinine 14, BUN 90 -History of a Caliente Schnlein purpura -Last hemodialysis approximately 2 weeks [...] Code Status: Full Code Gerber Pearson MD 10/17/2018 documented in this encounter H&P Notes Naresh Shelton MD - 10/17/2018 5:16 AM PDTFormatting of this note might be diffe rent from the original. H&P by Naresh Shelton MD at 10/17/18 0516 Author: Naresh Shelton MD Service: Hospitalist Author Type: Physician Filed: 10/17/18 0610 Date of Service: 10/17/18515 Status: Signed Payroll And Benefits Manager: Naresh Shelton MD (Physician) Merged With [facility] Service: Hospitalist Admission History & Physical Date of Admission: 10/17/2018 Requesting Physician: Dr Pruitt, Emergency Department Reason for Admission: Volume overload/noncompliance with hemodialysis, pulmonary edema History Obtained From: patient CHIEF COMPLAINT: Dyspnea HISTORY OF PRESENT ILLNESS The patient is 23 y.o. female with significant past medical history of end-stage renal dise ase on hemodialysis Monday, Monday and Monday (nephrology Dr Anguiano), history of Henoch Sc honlein purpura, recurrent bilateral pleural effusions requiring thoracentesis, combined sys tolic and diastolic heart failure with ejection fraction of 20-25% who presents with dyspnea Patient was recently discharged from [facility] on 08/23/2018. For full note, please see discha rge summary from hospitalist. In summary, the patient was admitted for noncardiogenic pulmo nary edema after thoracentesis. At that point, prior to admission, she was seen at [facility] at [facility] in [place] on 08/21 where she underwent right th [...] Hospitalist service was consulted for fur ther management REVIEW OF SYSTEMS Review of Systems Constitutional: Positive for fatigue. Negative for chills and fever. HENT: Negative for postnasal drip and rhinorrhea. Respiratory: Positive for shortness of breath. Negative for apnea, cough, choking and wheez ing. Cardiovascular: Negative for chest pain, palpitations and leg swelling. Gastrointestinal: Positive for abdominal distention. Negative for abdominal pain, diarrhea, nausea and vomiting. Genitourinary: Negative for difficulty urinating and dysuria. Musculoskeletal: Negative for arthralgias. Skin: Negative for color change. Neurological: Negative for dizziness and headaches. Psychiatric/Behavioral: Negative for agitation and confusion. Past Medical History Diagnosis Date Asthma Clotted dialysis access (HCC) 2014 Congestive heart failure (HCC) ESRD (end stage renal disease) (HCC) HSP (Henoch Schonlein purpura) (HCC) HSP (Henoch-Schonlein purpura) nephritis (HCC) Hypertension Past Surgical History Procedure Laterality Date ABDOMINAL SURGERY AV FISTULA PLACEMENT Left 04/08/2014 Procedure: AV FISTULA; Surgeon: Rik Simon MD; Location: [facility] MA[facility] OR; Service: Vascula r; Laterality: Left; cephalic AV FISTULA REPAIR Left 03/07/2014 Procedure: AV FISTULA - GRAFT REPAIR/REVISION; Surgeon: Rik Simon MD; Location: [facility] IN OR; Service: Vascular; Laterality: Left; DECLOT GRAFT Left 03/07/2014 Procedure: GRAFT - DECLOT; Surgeon: Rik Simon MD; Location: [facility] MA[facility] OR; Service: Vas cular; Laterality: Left; DIALYSIS FISTULA CREATION N/A 04/08/2014 Procedure: DIALYSIS CATHETER - INSERTION; Surgeon: Rik Simon MD; Location: [facility] OR ; Service: Vascular; Laterality: N/A; tunneled catheter LAPAROSCOPIC PERITONEAL DIALYSIS CATHETER INSERTION x2 LAPAROSCOPIC PERITONEAL DIALYSIS CATHETER INSERTION Right 07/2013 current dialysis access MWF dialysis RENAL BIOPSY Left 2003 SUPERFICIALIZATION OF AV FISTULA Left 06/24/2014 Procedure: AV FISTULA - SUPERFICIALIZATION; Surgeon: Rik Simon MD; Location: [facility] OR; Service: Vascular; Laterality: Left; No current facility-administered medications on file prior to encounter. Current Outpatient Prescriptions on File Prior to Encounter Medication Sig Dispense Refill albuterol (PROVENTIL HFA;VENTOLIN HFA) 108 (90 Base) MCG/ACT inhaler Inhale 2 puffs int o the lungs every 6 (six) hours as needed. for wheezing 0 clopidogrel (PLAVIX) 75 MG tablet Take 75 mg by mouth daily. Indications: Treatment to Prevent a Blood Clot in a Vascular Stent metoprolol (TOPROL-XL) 50 MG 24 hr tablet Take 1 tablet by mouth daily. (Patient taking differently: Take 50 mg by mouth nightly.) 30 tablet 2 ondansetron (ZOFRAN) 4 MG tablet Take 4 mg by mouth 3 (three) times daily as needed for Nausea. pantoprazole (PROTONIX) 40 MG tablet Take 40 mg by mouth every morning before breakfast . promethazine (PHENERGAN) 25 MG tablet Take 1 tablet by mouth every 6 (six) hours as nee ded for Nausea or Vomiting (non-resposive to zofran). 30 tablet 0 sevelamer (RENVELA) 800 MG tablet Take 2 tablets by mouth 3 (three) times daily with me als. (Patient taking differently: Take 2,400 mg by mouth 3 (three) times daily with meals.) 180 tablet 2 valsartan (DIOVAN) 40 MG tablet Take 1 tablet by mouth daily. (Patient taking different ly: Take 80 mg by mouth daily.) 30 tablet 11 ipratropium-albuterol (DUO-NEB) 0.5-2.5 mg/3mL Take 3 mLs by nebulization. Immunizations: Influenza: Pneumoccocal: Allergies Allergen Reactions Fentanyl Itching Iodinated Diagnostic Agents Itching Pt c/o face itching during fistulagram Morphine Rash Reglan [Metoclopramide] Itching Ritalin [Methylphenidate Hcl] Other (See Comments) Patient says skin was crawling Tape [Adhesive Tape] Rash Use silk tape only (Not in a hospital admission) Family History Problem Relation Age of Onset [...] file Social History Narrative She lives in [facility]. She does not work. She has 1 full sibling in good health. She has a total of 14 siblings (3 with same mother, rest with same father). 1 half sibling on father's side had a brain tumor. PHYSICAL EXAM Vital Signs: BP (!) 150/93 (BP Location: Right upper arm) | Pulse 108 | Temp 97.6 F (36.4 C) (Oral ) | Resp 24 | Ht 1.702 m (5' 7") | Wt 76 kg (167 lb 8.8 oz) | LMP 06/21/2018 | SpO2 94% | BMI 26.24 kg/m Physical Exam Constitutional: She is oriented to person, place, and time. She appears well-developed. HENT: Head: Normocephalic and atraumatic. Eyes: Pupils are equal, round, and reactive to light. EOM are normal. Neck: Neck supple. JVD present. Cardiovascular: Normal rate, regular rhythm and normal heart sounds. Exam reveals no frict ion rub. No murmur heard. Pulmonary/Chest: Effort normal. No respiratory distress. She has decreased breath sounds in the right middle field and the right lower field. She has no wheezes. She has no rales. Abdomina/Gl: Soft. She exhibits distension. She exhibits no mass. There is no tenderness. T here is no guarding. Musculoskeletal: She exhibits edema. Neurological: She is alert and oriented to person, place, and time. DATA Results Procedure Component Value Units Date/Time Brain natriuretic peptide [[id number]] (Abnormal) Collected: 10/17/18348 Updated: 10/17/18507 BRAIN NATRIURETIC PEPTIDE 1,151.26 (H) pg/mL Cardiac Panel [[id number]] (Abnormal) Collected: 10/17/18348 Updated: 10/17/18 050 WBC 6.63 K/uL RBC 3.07 (L) M/uL HGB 10.9 (L) g/dL HCT 32.7 (L) % MCV 106.7 (H) fl MCH 35.6 (H) pg MCHC 33.4 g/dL RDW SD 56.4 (H) fl PLT 158 K/uL MPV 10.2 fl DIFF TYPE AUTOMATED NEUTROPHILS 70.67 % LYMPHOCYTES 15.06 % MONOCYTES 3.99 % EOSINOPHILS 9.11 % BASOPHILS 1.17 % NEUTROPHILS ABS 4.68 K/uL LYMPHOCYTES ABS 1.00 K/uL MONOCYTES ABS 0.26 K/uL EOSINOPHILS ABS 0.60 (H) K/uL BASOPHILS ABS 0.08 K/uL MORPHOLOGY 2+ Platelet Estimate ADEQUATE SODIUM 142 mmol/L POTASSIUM 5.5 (H) mmol/L CHLORIDE 104 mmol/L CO2 17 (L) mmol/L ANION GAP AGAP 27 (H) mmol/L GLUCOSE 91 mg/dL BUN 89 (H) mg/dL CREATININE 14.52 (H) mg/dL BUN/CREAT 6 CALCIUM 8.9 mg/dL TOTAL PROTEIN 6.5 g/dL Albumin 4.0 g/dL GLOBULIN 2.5 g/dL A/G 1.6 TBIL 0.6 mg/dL ALK PHOS 85 U/L AST 40 U/L ALT 31 U/L EGFR 3 (L) mL/min/1.73m2 CPK 690 (H) U/L INR 1.2 APTT 23 seconds MMB 17.8 (H) ng/mL CK-MB Index UNABLE TO CALCULATE Troponin I, Lab [[id number]] (Abnormal) Collected: 10/17/18348 Specimen: Blood Updated: 10/17/18 0440 TROPONIN I 0.151 (H) ng/mL PROBLEM LIST Principal Problem: Non-cardiogenic pulmonary edema Active Problems: HSP (Henoch Schonlein purpura) Dyspnea Pleural effusion on right Non-compliance Hyperkalemia Moderate to severe pulmonary hypertension (HCC) Chronic 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) End stage renal disease (HCC) ASSESSMENT & PLAN Impression patient is 23 y.o. female with significant past medical history of end-stage renal disease on hemodialysis Monday, Monday and Monday (nephrology Dr Anguiano), history of Henoch Schonl ein purpura, recurrent bilateral pleural effusions requiring thoracentesis, combined systoli c and diastolic heart failure with ejection fraction of 20-25% who presents with dyspnea for several days, worse since Monday, 4 days ago. Noncompliant with hemodialysis -06/2018 echocardiogram-overall left ventricular systolic function is moderate/severely imp aired, EF 30-35%. Restrictive LV diastolic filling pattern, consistent with elevated LA pre ssure and severe dysfunction, grade 3. Moderate MR, severe TR. severe pulmonary hypertensio n -Chest u-sgv-[id number] with pulmonary edema and large right pleural effusion -troponin I-0.151. BNP 1151 Assessment -Dyspnea. With clinical and laboratory findings of volume overload. Most likely due to sindy hamilton being noncompliant with her dialysis. -Elevated troponin I and BNP. In the context of patient with end-stage renal disease, nonc ompliant with hemodialysis. Will follow cardiac enzymes trend but suspect elevation being r elated to end-stage renal disease -End-stage renal disease on hemodialysis Monday, Monday, Monday. Nephrology Dr Anguiano. Last hemodialysis was 2 weeks ago. -History of HSP and HSP nephritis -Hypertension -Severe combined systolic and diastolic heart failure. With current signs of decompensatio n due to noncompliance with medical management. -Asthma. With no current signs of exacerbation -Anxiety Plan Admit inpatient ED provider already consulted nephrology, Dr. Pabon for HD Elevate head out of bed 1 L fluid restriction Oxygen PRN Telemetry EKG in the morning Cardiac enzymes x3 Recent echocardiogram results as above If symptoms do not improve after hemodialysis and fluid removal, will consider therapeutic thoracentesis Continue antiplatelet, beta-lia and RYAN inhibitor therapy Highly encourage compliance with medical management Pain management Antiemetic therapy DVT GI prophylaxis CODE STATUS- Full code Disposition: Inpatient Code Status: Prior Primary Care Physician: TIEN Shelton MD 10/17/2018 documented i n this encounter Procedure Notes Antonio Pabon MD - 10/17/2018 3:00 PM PDTFormatting of this note might be different from t he original. Procedures by Antonio Pabon MD at 10/17/18 1500 Author: Antonio Pabon MD Service: Nephrology Author Type: Physician Filed: 10/19/18 1700 Date of Service: 10/17/18 1500 Status: Signed Payroll And Benefits Manager: Antonio Pabon MD (Physician) Merged With [facility] Service: NEPHROLOGY Dialysis Note Dara Weldon 23 y.o. [id number] female [facility] Day: LOS: 1 day 23-year-old female [...] breath. Nephrology consulted for evaluation and management of Acute pulm edema/ hypervolemia/ esrd ONSET Acute on Chronic severity severe Associated with fluid electrolyte acid base imbalances In the setting of missed hd/ ADHF combined Assess need for urgent hd/uf Seen and examined on hd with hd rn tolerating hd/ uf well Access functioning well HD FLOW SHEET REVIEWED Feels weak, +ve sob No cp, nausea, vomiting, diarrhea, fever, headache Past Medical History Diagnosis Date Asthma Clotted dialysis access (HCC) 2014 Congestive heart failure (HCC) ESRD (end stage renal disease) (HCC) HSP (Henoch Schonlein purpura) (HCC) HSP (Henoch-Schonlein purpura) nephritis (HCC) Hypertension Past Surgical History Procedure Laterality Date ABDOMINAL SURGERY AV FISTULA PLACEMENT Left 04/08/2014 Procedure: AV FISTULA; Surgeon: Rik Simon MD; Location: [facility] MAIN OR; Service: Vascula r; Laterality: Left; cephalic AV FISTULA REPAIR Left 03/07/2014 Procedure: AV FISTULA - GRAFT REPAIR/REVISION; Surgeon: Rik Simon MD; Location: [facility] IN OR; Service: Vascular; Laterality: Left; DECLOT GRAFT Left 03/07/2014 Procedure: GRAFT - DECLOT; Surgeon: Rik Simon MD; Location: [facility] MAIN OR; Service: Vas cular; Laterality: Left; DIALYSIS FISTULA CREATION N/A 04/08/2014 Procedure: DIALYSIS CATHETER - INSERTION; Surgeon: Rik Simon MD; Location: [facility] OR ; Service: Vascular; Laterality: N/A; tunneled catheter LAPAROSCOPIC PERITONEAL DIALYSIS CATHETER INSERTION x2 LAPAROSCOPIC PERITONEAL DIALYSIS CATHETER INSERTION Right 07/2013 current dialysis access MWF dialysis RENAL BIOPSY Left 2003 SUPERFICIALIZATION OF AV FISTULA Left 06/24/2014 Procedure: AV FISTULA - SUPERFICIALIZATION; Surgeon: Rik Simon MD; Location: [facility] MAIN OR; Service: Vascular; Laterality: [...] file Social History Narrative She lives in [facility]. She does not work. She [...] silk tape only OBJECTIVE Vital Signs: BP 120/61 (BP Location: Right upper arm) | Pulse 86 | Temp 98.2 F (36.8 C) (Oral) | Resp 18 | Ht 1.702 m (5' 7.01") | Wt 73.1 kg (161 lb 2.5 oz) | LMP 06/21/2018 | SpO2 95% | BMI 25.23 kg/m I&O Detailed Table: I/O last 3 completed shifts: In: 2900 [Other:2900] Out: 8700 [Other:8700] Weight change: Examination: seen with hd rn APPEARANCE: The patient is a pleasant sitting in the bed in no distress. VITALS: Reviewed as listed. HEAD: NC/AT. NECK: Supple. +ve raised JVD LUNGS: Decrease bs at right base HEART: S1, S2, no pericardial rub noted. ABDOMEN: distended, no tenderness. EXTREMITIES: +ve pedal edema noted. NEUROLOGIC: No gross focal motor deficit noted. PSYCH: The patient is alert and oriented x 3, mood and affect looks ok MARISEL AVF functioning well LABS: Recent Results (from the past 24 hour(s)) CBC W/Auto Diff (Reflex to Manual) Collection [...] QTC Calculation (Bezet) 469 ms Calculated P [place] 46 degrees Calculated R [place] 127 degrees Calculated T [place] 94 degrees Diagnosis Normal sinus rhythm Right axis deviation Nonspecific T wave abnormality Prolonged QT Abnormal ECG When compared with ECG of 17-OCT-2018 03:50, QRS axis Shifted right Inverted T waves have replaced nonspecific T wave abnormality in Lateral leads Confirmed by Nir ALMEIDA, Corinne ([id number]) on 10/18/2018 9:02:49 PM IMAGING: X-ray Chest 1 View Result Date: [...] ral space is punctured with an 5 [place] [employer] centesis catheter. Fluid is aspirated without complication. [...] 1 VIEW (10/17/2018); CHEST TWO V IEWS [id number] (10/17/2018); FINDINGS: Compared to the prior examination [...] the setting of missed hd/ ADHF combined Getting urgent hd with uf LOW NA DIET 2GM/ 24 HOURS FLUID RESTRICTION 1.2 LITERS / 24 HOURS DAILY WEIGHTS STRICT I/O -06/2018 echocardiogram-overall left ventricular systolic function is moderate/severely imp aired, EF 30-35%. Restrictive LV diastolic filling pattern, consistent with elevated LA pr essure and severe dysfunction, grade 3. Moderate MR, severe TR.severe pulmonary hyperten arturo Chest v-jle-ykpnklbazhme with pulmonary edema and large right pleural effusion Troponin I-0.151. BNP 1151 HYPERKALEMIA Getting hd In the setting of missed hd Low k diet Watch k level closely Telemetry K 5.5 (H) 10/17/2018 K 5.1 (H) 08/22/2018 Acidosis Getting hd In the setting of missed hd/ ADHF combined Watch co2 closely CO2 17 (L) 10/17/2018 CO2 28 08/22/2018 CO2 22 (L) 08/21/2018 CO2 22 (L) 08/20/2018 ESRD ON HD Seen and examined on hd tolerating hd/ uf well Access functioning well HD FLOW SHEET REVIEWED Orders in the chart Fluid restriction 1.2 litres/24 hours Strict I & O Daily RFP Renal diet Daily weights will help with subsequent hd with uf Dose all meds per protocol for ESRD on hd ANEMIA in ESRD EPOGEN TO KEEP HGB 10-11 Lab Results Component Value Date HGB 11.7 10/18/2018 HGB 10.9 (L) 10/17/2018 HGB 11.7 08/21/2018 HYPERTENSION Controlled WATCH BP CLOSELY DURING HOSPITALIZATION LOW NA DIET Will adjust BP meds according to BP readings BP Readings from Last 3 Encounters: 10/18/18 120/61 10/02/18 128/88 08/23/18 121/66 HYPERPHOSPHATEMIA LOW P DIET PO4 BINDERS Renvela with meals Lab Results Component Value Date PHOS 7.3 (H) 08/21/2018 PHOS 6.7 (H) 08/20/2018 PHOS 4.1 07/24/2018 HYPOALBUMINEMIA INCREASE PROTEIN INTAKE Lab Results Component Value Date ALB 3.3 (L) 10/18/2018 ALB 4.0 10/17/2018 ALB 4.0 08/20/2018 CASE DISCUSSED IN DETAIL WITH PATIENT/ care team, ANSWERS ALL QUESTIONS IN DETAIL, VERBALIZ ES UNDERSTANDING ANTONIO PABON MD 10/18/2018 TIEN NICHOLSON Seen earlier and charting completed later Dictation software, [employer], used which may contain error for similar sounding words even af ter review. Personal communication requested for any clarification. documented in this enco unter Consult Notes Antonio Pabon MD - 10/17/2018 10:35 AM PDTFormatting of this note might be different from t he original. Consult* by Antonio Pabon MD at 10/17/18 1035 Author: Antonio Pabon MD Service: Nephrology Author Type: Physician Filed: 10/18/18 2327 Date of Service: 10/17/18 1030 Status: Signed Payroll And Benefits Manager: Antonio Pabon MD (Physician) Merged With [facility] Service: NEPHROLOGY CONSULT Note Dara Weldon 23 y.o. [id number] female [facility] Day: LOS: 0 days Date of Consultation: 10/17/2018 Requesting Physician: ED provider/ Hospitalist Reason for CONSULTATION: Acute pulmonary edema/ hypervolemia/ ESRD History Obtained From: patient, care team, records HISTORY OF PRESENT ILLNESS 23-year-old female with past medical history significant for end-stage renal disease on hem odialysis 3 times a week Monday, she often on Lauren purpura, history of recurrent bilateral pleural effusions requiring paracentesis, history of combined systolic a nd diastolic heart failure with ejection fraction of 20-25 percent presented to emergency ro om with worsening shortness of breath. Patient seen at the outside hospital emergency depart ment with worsening shortness of breath for the last few days noncompliant with her dialysis last treatment was for records about 2 weeks ago due to having a lot of stress in her life per patient recently her best friend in her nephew had to go for surgery due to her she got stressed out and not going for dialysis treatment. Patient does have worsening l ower extremity edema as well as ascites and shortness of breath on exertion. Seen in the emergency room BNP 1151 troponin 0.151 Chest x-ray showed cardiomegaly, pulmonary edema, large right pleural effusion Nephrology consulted for evaluation and management of Acute pulm edema/ hypervolemia/ esrd ONSET Acute on Chronic severity severe Associated with fluid electrolyte acid base imbalances In the setting of missed hd/ ADHF combined Assess need for urgent hd/uf Review of Systems 12 point ROS REVIEWED NEGATIVE EXCEPT LISTED ABOVE Past Medical History Diagnosis Date Asthma Clotted dialysis access (HCC) 2014 Congestive heart failure (HCC) ESRD (end stage renal disease) (HCC) HSP (Henoch Schonlein purpura) (HCC) HSP (Henoch-Schonlein purpura) nephritis (HCC) Hypertension Past Surgical History Procedure Laterality Date ABDOMINAL SURGERY AV FISTULA PLACEMENT Left 04/08/2014 Procedure: AV FISTULA; Surgeon: Rik Simon MD; Location: [facility] MAIN OR; Service: Vascula r; Laterality: Left; cephalic AV FISTULA REPAIR Left 03/07/2014 Procedure: AV FISTULA - GRAFT REPAIR/REVISION; Surgeon: Rik Simon MD; Location: [facility] IN OR; Service: Vascular; Laterality: Left; DECLOT GRAFT Left 03/07/2014 Procedure: GRAFT - DECLOT; Surgeon: Rik Simon MD; Location: [facility] MA[facility] OR; Service: Vas cular; Laterality: Left; DIALYSIS FISTULA CREATION N/A 04/08/2014 Procedure: DIALYSIS CATHETER - INSERTION; Surgeon: Rik Simon MD; Location: [facility] MA[facility] OR ; Service: Vascular; Laterality: N/A; tunneled catheter LAPAROSCOPIC PERITONEAL DIALYSIS CATHETER INSERTION x2 LAPAROSCOPIC PERITONEAL DIALYSIS CATHETER INSERTION Right 07/2013 current dialysis access MWF dialysis RENAL BIOPSY Left 2003 SUPERFICIALIZATION OF AV FISTULA Left 06/24/2014 Procedure: AV FISTULA - SUPERFICIALIZATION; Surgeon: Rik Simon MD; Location: [facility] OR; Service: Vascular; Laterality: [...] file Social History Narrative She lives in [facility]. She does not work. She [...] silk tape only OBJECTIVE Vital Signs: BP 150/90 (BP Location: Right upper arm) | Pulse 108 | Temp 97.1 F (36.2 C) (Oral) | Resp 22 | Ht 1.702 m (5' 7.01") | Wt 76.1 kg (167 lb 12.3 oz) | LMP 06/21/2018 | SpO2 9 1% | BMI 26.27 kg/m I&O Detailed Table: No intake/output data recorded. Weight change: Examination: APPEARANCE: The patient is a pleasant sitting in no apparent distress. VITALS: Reviewed as listed. HEAD: NC/AT. EYES: PERRLA. EOMI. Non-icteric sclera. ENT: No oropharyngeal erythema. Buccal mucosa is moist. No gross ear or nasal prob lems noted. NECK: Supple. +ve raised JVD LUNGS: Decrease bs at right base HEART: S1, S2, no pericardial rub noted. ABDOMEN: distended, no tenderness. Bowel sounds are present. No organomegaly or bruits noted. EXTREMITIES: +ve pedal edema noted. No cyanosis or clubbing. Peripheral pulses palpable SKIN: Warm to touch. No rash or ecchymosis noted. NEUROLOGIC: No gross focal motor deficit noted. PSYCH: The patient is alert and oriented x 3, mood and affect looks ok, memory seems to be intact. BACK: no CVA tenderness noted MARISEL AVF +v thrill/ bruit LABS: Recent Results (from the past 24 hour(s)) Cardiac Panel Collection Time: 10/17/18 3:49 AM Result Value Ref Range WBC 6.63 3.80 - 11.00 K/uL RBC 3.07 (L) 3.70 - 5.10 M/uL HGB 10.9 (L) 11.3 - 15.5 g/dL HCT 32.7 (L) 34.0 - 46.0 % MCV 106.7 (H) 80.0 - 100.0 fl MCH 35.6 (H) 27.0 - 34.0 pg MCHC 33.4 32.0 - 35.5 g/dL RDW SD 56.4 (H) 37 - 53 fl PLT 158 150 - 400 K/uL MPV 10.2 fl DIFF TYPE AUTOMATED NEUTROPHILS 70.67 % LYMPHOCYTES 15.06 % MONOCYTES 3.99 % EOSINOPHILS 9.11 % BASOPHILS 1.17 % NEUTROPHILS ABS 4.68 1.90 - 7.40 K/uL LYMPHOCYTES ABS 1.00 1.00 - 3.90 K/uL MONOCYTES ABS 0.26 0.00 - 0.80 K/uL EOSINOPHILS ABS 0.60 (H) 0.00 - 0.50 K/uL BASOPHILS ABS 0.08 0.00 - 0.10 K/uL MORPHOLOGY 2+ Platelet Estimate ADEQUATE SODIUM 142 135 - 145 mmol/L POTASSIUM 5.5 (H) 3.5 - 4.9 mmol/L CHLORIDE 104 99 - 109 mmol/L CO2 17 (L) 23 - 32 mmol/L ANION GAP AGAP 27 (H) 5 - 20 mmol/L GLUCOSE 91 65 - 99 mg/dL BUN 89 (H) 8 - 25 mg/dL CREATININE 14.52 (H) 0.50 - 1.00 mg/dL BUN/CREAT 6 CALCIUM 8.9 8.5 - 10.5 mg/dL TOTAL PROTEIN 6.5 6.3 - 8.2 g/dL Albumin 4.0 3.6 - 5.0 g/dL GLOBULIN 2.5 1.3 - 4.9 g/dL A/G 1.6 1.0 - 2.4 TBIL 0.6 0.1 - 1.5 mg/dL ALK PHOS 85 35 - 115 U/L AST 40 10 - 45 U/L ALT 31 10 - 65 U/L EGFR 3 (L) >60 mL/min/1.73m2 CPK 690 (H) 30 - 240 U/L INR 1.2 APTT 23 23 - 32 seconds MMB 17.8 (H) 0.5 - 3.6 ng/mL CK-MB Index UNABLE TO CALCULATE Troponin I, Lab Collection Time: 10/17/18 3:49 AM Result Value Ref Range TROPONIN I 0.151 (H) 0.00 - 0.04 ng/mL Brain natriuretic peptide Collection Time: 10/17/18 3:49 AM Result Value Ref Range BRAIN NATRIURETIC PEPTIDE 1,151.26 (H) 0 - 100 pg/mL EKG Collection Time: 10/17/18 3:50 AM Result Value Ref Range Ventricular Rate 103 BPM Atrial Rate 103 BPM P-R Interval 168 ms QRS Duration 86 ms Q-T Interval 350 ms QTC Calculation (Bezet) 458 ms Calculated P [place] 33 degrees Calculated R Seattle -22 degrees Calculated T [place] 92 degrees Diagnosis Sinus tachycardia Nonspecific T wave abnormality Abnormal ECG When compared with ECG of 28-JUN-2018 12:17, Previous ECG has undetermined rhythm, needs review This ECG contains Unconfirmed Interpretation Statements. See ED Record for Physician Inter pretation. Confirmed by MUSE READ ONLY, -COMPUTER ([id number]), tape editor Ankita, Daniela ([id number]) on 10/17/2018 9:07:2 1 AM Protime-INR Collection Time: 10/17/18 8:10 AM Result Value Ref Range INR 1.2 IMAGING: X-ray Chest 1 View Result Date: [...] the setting of missed hd/ ADHF combined Will do urgent hd with uf LOW NA DIET 2GM/ 24 HOURS FLUID RESTRICTION 1.2 LITERS / 24 HOURS DAILY WEIGHTS STRICT I/O -06/2018 echocardiogram-overall left ventricular systolic function is moderate/severely imp aired, EF 30-35%. Restrictive LV diastolic filling pattern, consistent with elevated LA pre ssure and severe dysfunction, grade 3. Moderate MR, severe TR. severe pulmonary hypertensio n Chest [id number]-ooi-cfqdsweirgrh with pulmonary edema and large right pleural effusion Troponin I-0.151. BNP 1151 HYPERKALEMIA In the setting of missed hd Low k diet Watch k level closely Telemetry K 5.5 (H) 10/17/2018 K 5.1 (H) 08/22/2018 Acidosis In the setting of missed hd/ ADHF combined Watch co2 closely Will do hd now CO2 17 (L) 10/17/2018 CO2 28 08/22/2018 CO2 22 (L) 08/21/2018 CO2 22 (L) 08/20/2018 ESRD ON HD plan for urgent hd/uf today given pulm edema/ fluid overload Assess daily for need for hd & uf Orders in the chart Fluid restriction 1.2 litres/24 hours Strict I & O Daily RFP Renal diet Daily weights will help with subsequent hd with uf Dose all meds per protocol for ESRD on hd ANEMIA in ESRD EPOGEN TO KEEP HGB 10-11 Lab Results Component Value Date HGB 10.9 (L) 10/17/2018 HGB 11.7 08/21/2018 HGB 11.9 08/20/2018 HYPERTENSION WATCH BP CLOSELY DURING HOSPITALIZATION LOW NA DIET Will adjust BP meds according to BP readings BP Readings from Last 3 Encounters: 10/17/18 150/90 10/02/18 128/88 08/23/18 121/66 HYPERPHOSPHATEMIA LOW P DIET RESUME PO4 BINDERS Lab Results Component Value Date PHOS 7.3 (H) 08/21/2018 PHOS 6.7 (H) 08/20/2018 PHOS 4.1 07/24/2018 Prognosis guarded in view of multiple comorbid illnesses CASE DISCUSSED IN DETAIL WITH PATIENT/ care team, ANSWERS ALL QUESTIONS IN DETAIL, VERBALIZ ES UNDERSTANDING I thank Dr Hogue for giving me the opportunity to take part in the care of this wagner pa tient with multiple complex medical problems ANTONIO PABON MD 10/17/2018 TIEN NICHOLSON Seen earlier and charting completed later Dictation software, [employer], used which may contain error for similar sounding words even af ter review. Personal communication requested for any clarification. documented in this enco unter ED Notes Conversion Transaction, Provider Unknown - 10/17/2018 6:46 AM PDTFormatting of this note m ight be different from the original. ED Notes by Eda Viera RN at 10/17/18645 Author: Eda Viera RN Service: (none) Author Type: Registered Nurse Filed: 10/17/18646 Date of Service: 10/17/18645 Status: Signed Payroll And Benefits Manager: Eda Viera RN (Registered Nurse) Bedside report given to Ronnie SAMUELS, explained pt arrival symptoms, PMH, meds/labs/rad and sadia n of care. Explained pt concern regarding anxiety and noted recent ativan given. Noted Fenta nyl in order set, but pt is allergic to fentanyl, need to clairfy w/ hospitalist. No further questions noted. Eda Viera RN 10/17/1847 onver arturo Transaction, Provider Unknown - 10/17/2018 6:15 AM PDT ED Notes by Eda Viera RN at 10/17/18614 Author: Eda Viera RN Service: (none) Author Type: Registered Nurse Filed: 10/17/1848 Date of Service: 10/17/18614 Status: Addendum Payroll And Benefits Manager: Eda Viera RN (Registered Nurse) Related Notes: Original Note by Eda Viera RN (Registered Nurse) filed at 641 Pt c/o of continued anxiety, provider notified. Pt frustrated and when trying to sympathize further the pt turned her head to the side and wouldn't speak anymore. Eda Viera RN 10/17/1848 onver arturo Transaction, Provider Unknown - 10/17/2018 4:38 AM PDT ED Notes by Celestina Felder RN at 10/17/18437 Author: Celestina Felder RN Service: (none) Author Type: Registered Nurse Filed: 10/17/18437 Date of Service: 10/17/18437 Status: Signed Payroll And Benefits Manager: Celestina Felder RN (Registered Nurse) personnel technician notified of placement on tele per orders. Celestina Felder RN 10/17/18437 onver arturo Transaction, Provider Unknown - 10/17/2018 4:01 AM PDT ED Notes by Laurie Geiger RN at 10/17/18400 Author: Laurie Geiger RN Service: (none) Author Type: Registered Nurse Filed: 10/17/18411 Date of Service: 10/17/18400 Status: Addendum Payroll And Benefits Manager: Laurie Geiger RN (Registered Nurse) Related Notes: Original Note by Laurie Geiger RN (Registered Nurse) filed at 10/17/18 0 404 Patient presented to [facility] ER with SOB since Monday. She states she has not had ful l dialysis since October 05. She states she recently lost her best friend and has a difficul t time sitting through dialysis. She has not been taking her medications for the past 1.5 mo nths. Patient has gained about 10 pounds in the past 2 weeks. Hx of HSP as a child which led to her kidney failure. Laurie Geiger RN 10/17/18411 ime, Vivek Cole MD - 10/17/2018 3:22 AM PDT ED Provider Notes by Vivek Teran MD at 10/17/18321 Author: Vivek Teran MD Service: Emergency Department Author Type: Physician Filed: 10/17/18 0648 Date of Service: 10/17/18321 Status: Signed Payroll And Benefits Manager: Vivek Teran MD (Physician) Merged With [facility] Department of Emergency Medicine 3:22 AM 10/17/2018 History of Present Illness Patient Identification Dara Weldon is a 23 y.o. female. Patient information was obtained from patient and EMS personnel. History/Exam limitations: none. Patient presented to the Emergency Department by: Chief Complaint Chief Complaint Patient presents with Shortness of Breath Since Monday The patient presents to the emergency department with chief complaints of SOB. Onset of sym ptoms was five days, with a constant course since that time. The symptoms are described to los e of severe severity. The patient also complained of recent weight gain of 10 kg. The patien t describes the quality and location of the symptoms as the following: Patient has mhx of HS P since age 10. She has been on dialysis for 6 years. Last dialysis has been 2 weeks ago . Sindy hamilton is currently on 32 oz water restriction. Patient reports having recent life circumstan es have caused her to MISSher dialysis treatment. She hasn't been able to cope with the pass ing of her friend a couple months ago. No care prior to arrival. Currently denies any ches t pain PCP: TIEN NICHOLSON Past Medical History Diagnosis Date Asthma Clotted dialysis access (HCC) 2014 Congestive heart failure (HCC) ESRD (end stage renal disease) (HCC) HSP (Henoch Schonlein purpura) (HCC) HSP (Henoch-Schonlein purpura) nephritis (HCC) Hypertension Past Surgical History Procedure Laterality Date ABDOMINAL SURGERY AV FISTULA PLACEMENT Left 04/08/2014 Procedure: AV FISTULA; Surgeon: Rik Simon MD; Location: [facility] MAIN OR; Service: Vascula r; Laterality: Left; cephalic AV FISTULA REPAIR Left 03/07/2014 Procedure: AV FISTULA - GRAFT REPAIR/REVISION; Surgeon: Rik Simon MD; Location: [facility] IN OR; Service: Vascular; Laterality: Left; DECLOT GRAFT Left 03/07/2014 Procedure: GRAFT - DECLOT; Surgeon: Rik Simon MD; Location: [facility] MAIN OR; Service: Vas cular; Laterality: Left; DIALYSIS FISTULA CREATION N/A 04/08/2014 Procedure: DIALYSIS CATHETER - INSERTION; Surgeon: Rik Simon MD; Location: [facility] OR ; Service: Vascular; Laterality: N/A; tunneled catheter LAPAROSCOPIC PERITONEAL DIALYSIS CATHETER INSERTION x2 LAPAROSCOPIC PERITONEAL DIALYSIS CATHETER INSERTION Right 07/2013 current dialysis access MWF dialysis RENAL BIOPSY Left 2003 SUPERFICIALIZATION OF AV FISTULA Left 06/24/2014 Procedure: AV FISTULA - SUPERFICIALIZATION; Surgeon: Rik Simon MD; Location: [facility] MAIN OR; Service: Vascular; Laterality: Left; Prior to Admission medications Medication Sig Start Date End Date Taking? Authorizing Provider albuterol (PROVENTIL HFA;VENTOLIN HFA) 108 (90 Base) MCG/ACT inhaler Inhale 2 puffs into th e lungs every 6 (six) hours as needed. for wheezing 06/30/18 Historical Provider clopidogrel (PLAVIX) 75 MG tablet Take 75 mg by mouth daily. Indications: Treatment to Prev ent a Blood Clot in a Vascular Stent Historical Provider ipratropium-albuterol (DUO-NEB) 0.5-2.5 mg/3mL Take 3 mLs by nebulization. Historical Pr ovider metoprolol (TOPROL-XL) 50 MG 24 hr tablet Take 1 tablet by mouth daily. Patient taking differently: Take 50 mg by mouth nightly. 07/24/18 07/24/19 Usha Martínez MD ondansetron (ZOFRAN) 4 MG tablet Take 4 mg by mouth 3 (three) times daily as needed for Gm sea. Historical Provider pantoprazole (PROTONIX) 40 MG tablet Take 40 mg by mouth every morning before breakfast. Historical Provider promethazine (PHENERGAN) 25 MG tablet Take 1 tablet by mouth every 6 (six) hours as needed for Nausea or Vomiting (non-resposive to zofran). 07/24/18 Usha Martínez MD sevelamer (RENVELA) 800 MG tablet Take 2 tablets by mouth 3 (three) times daily with meals. Patient taking differently: Take 2,400 mg by mouth 3 (three) times daily with meals. 9 06/01/19 Darell Kowalski MD valsartan (DIOVAN) 40 MG tablet Take 1 tablet by mouth daily. 06/14/18 06/14/19 Carolina Mahmood , Allergies Allergen Reactions Fentanyl Itching Iodinated Diagnostic Agents Itching Pt c/o face itching during fistulagram Morphine Rash Reglan [Metoclopramide] Itching Ritalin [Methylphenidate Hcl] Other (See Comments) Patient says skin was crawling Tape [Adhesive Tape] Rash Use silk tape only Social History Social History Marital status: Single [...] file Social History Narrative She lives in [facility]. She does not work. She has 1 full sibling in good health. She has a total of 14 siblings (3 with same mother, rest with same father). 1 half sibling on father's side had a brain tumor. Family History Problem Relation Age of Onset Heart disease Mother Seizures Mother Hypertension Father Alcohol abuse Father ROS Review of Systems Constitutional: Negative for: fever, chills or weight loss. HEENT: Negative for: head trauma, ear pain, sore throat or acute visual disturbance. Cardiovascular/Respiratory: Positive for: shortness of breath Negative for: chest pain, syncope and cough. Gastrointestinal: Negative for: abdominal pain, nausea, vomiting, diarrhea, or black or bl oody stools. Genitourinary: Negative for: dysuria or urinary problems. Musculoskeletal: Negative for: back pain Skin: Negative for: rash or lesions. Neuro: Negative for: headache, focal muscle weakness, seizure or acute neur ological problems. Physical Exam BP (!) 167/113 (BP Location: Right upper arm) | Pulse 110 | Resp 20 | Wt 76 kg (167 lb 8 .8 oz) | SpO2 97% | BMI 26.24 kg/m Vitals Interpretation: Hypertensive, tachycardic, borderline tachypneic otherwise normal Pulse Oximetry interpretation: Normal General: Mild respiratory distress Eyes: Normal inspection, pupils equal and round, non-icteric CVS: Tachycardic rate and rhythm normal No murmurs, rubs or gallops Respiratory: Diminished breath sounds in the right side abdomen: Soft, non-tender, non-distended No guarding or rebound Skin: Warm and dry Bilateral lower extremity petechiae with mild edema Musculoskeletal: Moves all extremities Neuro: No gross motosensory deficit Medical Decision Making and Emergency Department Course ED Department Course 3:22 AM. Patient presented as a transfer from [facility] with complaint of raul rtness of breath for the past few days, she is end-stage renal disease on dialysis and has n ot completed a full course of dialysis over the past 2 weeks, on exam she is in mild respira tory distress O2 sat in the low 90s on [address] Pabon nephrology already aware of the jennifer t case, and plan on performing dialysis this morning. 4:25 AM CXR: Cardiomegaly with pulmonary edema and large right pleural effusion. Patient currently stable will not plan for thoracentesis in the ED, and have it done as inpatient. 5:00 AM Review of labs show slightly elevated troponin of 0.151. Cardiac panel Elevated CPK at 690 Decrease EGFR at 3 BUN 89 Elevated creatinine at 14.52 Elevated BNP 1,151.26 Discussed all lab results and imaging with patient and plan for admission 5 50 AM. Discussed case with Dr. Hogue, hospitalist, who accepted admission. Vitals: 10/17/188 10/17/18 0500 10/17/1852710/17/18636 BP: (!) 151/103 (!) 161/102 (!) 150/93 (!) 170/101 BP Location: Right upper arm Right upper arm Right upper arm Right upper arm Pulse: 97 109 108 104 Resp: 24 22 Temp: 96.8 F (36 C) TempSrc: Oral SpO2: 97% 97% 94% 98% Weight: Height: Medications hydrALAZINE (APRESOLINE) injection 20 mg (20 mg Intravenous Given 10/17/18436) LORazepam (ATIVAN) injection 1 mg (1 mg Intravenous Given 10/17/18524) Records Reviewed Records unavailable Previous [facility] ED visits for unrelated complaints. Labs & Radiology Results Laboratory Evaluation Results Procedure Component Value Ref Range Date/Time Brain natriuretic peptide [[id number]] (Abnormal) Collected: 10/17/18348 Order Status: Completed Updated: 10/17/18507 BRAIN NATRIURETIC PEPTIDE 1,151.26 (H) 0 - 100 pg/mL Cardiac Panel [[id number]] (Abnormal) Collected: 10/17/18348 Order Status: Completed Updated: 10/17/18501 WBC 6.63 3.80 - 11.00 K/uL RBC 3.07 (L) 3.70 - 5.10 M/uL HGB 10.9 (L) 11.3 - 15.5 g/dL HCT 32.7 (L) 34.0 - 46.0 % MCV 106.7 (H) 80.0 - 100.0 fl MCH 35.6 (H) 27.0 - 34.0 pg MCHC 33.4 32.0 - 35.5 g/dL RDW SD 56.4 (H) 37 - 53 fl PLT 158 150 - 400 K/uL MPV 10.2 fl DIFF TYPE AUTOMATED NEUTROPHILS 70.67 % LYMPHOCYTES 15.06 % MONOCYTES 3.99 % EOSINOPHILS 9.11 % BASOPHILS 1.17 % NEUTROPHILS ABS 4.68 1.90 - 7.40 K/uL LYMPHOCYTES ABS 1.00 1.00 - 3.90 K/uL MONOCYTES ABS 0.26 0.00 - 0.80 K/uL EOSINOPHILS ABS 0.60 (H) 0.00 - 0.50 K/uL BASOPHILS ABS 0.08 0.00 - 0.10 K/uL MORPHOLOGY 2+ Platelet Estimate ADEQUATE SODIUM 142 135 - 145 mmol/L POTASSIUM 5.5 (H) 3.5 - 4.9 mmol/L CHLORIDE 104 99 - 109 mmol/L CO2 17 (L) 23 - 32 mmol/L ANION GAP AGAP 27 (H) 5 - 20 mmol/L GLUCOSE 91 65 - 99 mg/dL BUN 89 (H) 8 - 25 mg/dL CREATININE 14.52 (H) 0.50 - 1.00 mg/dL BUN/CREAT 6 CALCIUM 8.9 8.5 - 10.5 mg/dL TOTAL PROTEIN 6.5 6.3 - 8.2 g/dL Albumin 4.0 3.6 - 5.0 g/dL GLOBULIN 2.5 1.3 - 4.9 g/dL A/G 1.6 1.0 - 2.4 TBIL 0.6 0.1 - 1.5 mg/dL ALK PHOS 85 35 - 115 U/L AST 40 10 - 45 U/L ALT 31 10 - 65 U/L EGFR 3 (L) >60 mL/min/1.73m2 CPK 690 (H) 30 - 240 U/L INR 1.2 APTT 23 23 - 32 seconds MMB 17.8 (H) 0.5 - 3.6 ng/mL CK-MB Index UNABLE TO CALCULATE Troponin I, Lab [[id number]] (Abnormal) Collected: 10/17/18 0349 Order Status: Completed Specimen: Blood Updated: 10/17/18 0440 TROPONIN I 0.151 (H) 0.00 - 0.04 ng/mL Radiology and EKG Evaluation EKG @ 3:50 Sinus tachycardia 103 bpm Low voltage QRS Normal sinus rhythm Non specific ST wave abnormalities Normal QRS, intervals, and QTc EKG viewed independently and interpreted by me contemporaneously: Vivek Teran MD Imaging Results X-ray Chest 1 View (Final result) Result time 10/17/18 04:25:48 Final result by Fely Echols MD (10/17/18 04:25:48) Impression: Cardiomegaly with pulmonary edema and large right pleural effusion. Signed by: Eliza Echols, Fely Sign Date/Time: 10/17/2018 4:25 AM Narrative: CHEST ONE VIEW CLINICAL INFORMATION: Shortness of breath, primarily right-sided, for several days. COMPARISON: XR CHEST 2 VIEW FRONTAL AND LATERAL (08/22/2018); XR CHEST 2 VIEW FRONTAL AND LATERAL (08/21/2018); FINDINGS: Cardiomegaly with findings of pulmonary edema with large right pleural effusion. No pneumothorax. Bones unremarkable. Diagnosis & Disposition ED Diagnoses Final diagnoses SOB (shortness of breath) Pleural effusion on right ESRD needing dialysis (HCC) Disposition: ED Disposition ED Disposition Condition Comment Admit/Observation Bed request special needs: none Diagnosis?: SOB, ESRD need for dialysis, pleural effusion Procedures Additional Documentation Procedures Attending Provider Note: IVivek MD personally performed the services described in this documentation, as scribed by Radha Gutierrez in my presence, and it is both accura te and complete. Chart Reviewed and Completed: 10/17/18 6:48 AM Scribe: Héctor Green, scribing for and in the presence of Vivek Teran MD Signed by: Héctor Reagan 10/17/18 6:48 AM Vivek Teran MD 10/17/18 0648 onversion Transact ion, Provider Unknown - 10/17/2018 3:19 AM PDTFormatting of this note might be different fr om the original. ED Notes by Celestina Felder RN at 10/17/18318 Author: Celestina Felder RN Service: (none) Author Type: Registered Nurse Filed: 10/17/18318 Date of Service: 10/17/18318 Status: Signed Payroll And Benefits Manager: Celestina Felder RN (Registered Nurse) Bed: 20 Expected date: Expected time: Means of arrival: Comments: [place] Celestina Felder RN 10/17/18318 docume nted in this encounter Miscellaneous Notes Plan of Care - Conversion Transaction, Provider Unknown - 10/19/2018 11:23 PM PDT Plan of Care by Vira Ford RN at 10/19/182322 Author: Vira Ford RN Service: (none) Author Type: Registered Nurse Filed: 10/19/182322 Date of Service: 10/19/182322 Status: Signed Payroll And Benefits Manager: Vira Ford RN (Registered Nurse) Problem: Safety Goal: Patient will be injury free during hospitalization Assess and monitor vitals signs, neurological status including level of consciousness and o rientation. Assess patient's risk for falls and implement fall prevention plan of care and i nterventions per hospital policy. Ensure arm band on, uncluttered walking paths in room, adequate room lighting, call light a nd overbed table within reach, bed in low position, wheels locked, side rails up per policy, and non-skid footwear provided. Outcome: Progressing No injury at this time. Arm band on, path uncluttered, adequate room lighting, call light a nd bed table within reach, bed in low position, wheels locked, side rails up per policy and non-skid socks provided. Bed alarm on, fall risk sign up. Pt visualized hourly. lan o f Care - Conversion Transaction, Provider Unknown - 10/19/2018 11:26 AM PDTFormatting of thi s note might be different from the original. Plan of Care by Trent Jovel RN at 10/19/181125 Author: Trent Jovel RN Service: (none) Author Type: Registered Nurse Filed: 10/19/181125 Date of Service: 10/19/181125 Status: Signed Payroll And Benefits Manager: Trent Jovel RN (Registered Nurse) Problem: Pain Goal: Patient's pain/discomfort is manageable Assess and monitor patient's pain using appropriate pain scale. Collaborate with interdisci plinary team and initiate plan and interventions as ordered. Re-assess patient's pain level approximately 1-2 hours after pain management intervention. Premedicate as needed. Outcome: Progressing Patient's pain is manageable at this time. Current PRN regimen effective. lan o f Care - Conversion Transaction, Provider Unknown - 10/19/2018 12:19 AM PDTFormatting of thi s note might be different from the original. Plan of Care by Vira Ford RN at 10/19/1818 Author: Vira Ford RN Service: (none) Author Type: Registered Nurse Filed: 10/19/1818 Date of Service: 10/19/1818 Status: Signed Payroll And Benefits Manager: Vira Ford RN (Registered Nurse) Problem: Pain Goal: Patient's pain/discomfort is manageable Assess and monitor patient's pain using appropriate pain scale. Collaborate with interdisci plinary team and initiate plan and interventions as ordered. Re-assess patient's pain level approximately 1-2 hours after pain management intervention. Premedicate as needed. Outcome: Progressing Pain well controlled with current PRN medications per MAY. Problem: Safety Goal: Patient will be injury free during hospitalization Assess and monitor vitals signs, neurological status including level of consciousness and o rientation. Assess patient's risk for falls and implement fall prevention plan of care and i nterventions per hospital policy. Ensure arm band on, uncluttered walking paths in room, adequate room lighting, call light a nd overbed table within reach, bed in low position, wheels locked, side rails up per policy, and non-skid footwear provided. Outcome: Progressing No injury at this time. Arm band on, path uncluttered, adequate room lighting, call light a nd bed table within reach, bed in low position, wheels locked, side rails up per policy and non-skid socks provided. Bed alarm on, fall risk sign up. Pt visualized hourly. lan o f Care - Conversion Transaction, Provider Unknown - 10/18/2018 10:03 AM PDTFormatting of rosa s note might be different from the original. Plan of Care by Diana Palmer RN at 10/18/181002 Author: Diana Palmer RN Service: (none) Author Type: Registered Nurse Filed: 10/18/181002 Date of Service: 10/18/181002 Status: Signed Payroll And Benefits Manager: Diana Palmer RN (Registered Nurse) Problem: Safety Goal: Patient will be injury free during hospitalization Assess and monitor vitals signs, neurological status including level of consciousness and o rientation. Assess patient's risk for falls and implement fall prevention plan of care and i nterventions per hospital policy. Ensure arm band on, uncluttered walking paths in room, adequate room lighting, call light a nd overbed table within reach, bed in low position, wheels locked, side rails up per policy, and non-skid footwear provided. Outcome: Progressing Pt calls appropriately, call light in reach, bed in the low and locked position. lan o f Care - Conversion Transaction, Provider Unknown - 10/17/2018 11:37 PM PDTFormatting of thi s note might be different from the original. Plan of Care by Ronnie Vargas RN at 10/17/182336 Author: Ronnie Vargas RN Service: (none) Author Type: Registered Nurse Filed: 10/17/182336 Date of Service: 10/17/182336 Status: Signed Payroll And Benefits Manager: Ronnie Vargas RN (Registered Nurse) Pain Goal: Patient s pain/discomfort is manageable Assess and monitor patient s pain using appropriate pain scale. Collaborate with interdis ciplinary team and initiate plan and interventions as ordered. Re-assess patient s pain le manuel approximately 1-2 hours after pain management intervention. Premedicate as needed. Outcome: Progressing Patient states pain is under control. Will continue to monitor and provide medication as we ll as comfort measures as needed. Safety Goal: Patient will be injury free during hospitalization Assess and monitor vitals signs, neurological status including level of consciousness and o rientation. Assess patient s risk for falls and implement fall prevention plan of care and interventions per hospital policy. Ensure arm band on, uncluttered walking paths in room, adequate room lighting, call light a nd overbed table within reach, bed in low position, wheels locked, side rails up per policy, and non-skid footwear provided. Outcome: Progressing Patient will remain free from falls during hospital visit. Bed in lowest position. Room meenakshi e from clutter. Call light within reach. Patient uses call light appropriately. Fall Prevention Goal: No Falls during Hospital Stay Outcome: Progressing Maintain bed in low, locked position at all times. [place] patient and family to hospital surroundings. Provide non-skid slippers. Call light within reach. Rounding per standard lan o f Care - Conversion Transaction, Provider Unknown - 10/17/2018 10:52 AM PDTFormatting of thi s note might be different from the original. Plan of Care by Diana Palmer RN at 10/17/181051 Author: Diana Palmer RN Service: (none) Author Type: Registered Nurse Filed: 10/17/181051 Date of Service: 10/17/181051 Status: Signed Payroll And Benefits Manager: Diana Palmer RN (Registered Nurse) Problem: Safety Goal: Patient will be injury free during hospitalization Assess and monitor vitals signs, neurological status including level of consciousness and o rientation. Assess patient's risk for falls and implement fall prevention plan of care and i nterventions per hospital policy. Ensure arm band on, uncluttered walking paths in room, adequate room lighting, call light a nd overbed table within reach, bed in low position, wheels locked, side rails up per policy, and non-skid footwear provided. Outcome: Progressing Pt calls appropriately, call light in reach, bed in the low and locked position, non skid s ocks utilized. docume nted in this encounter Plan of [...] + + | XR CHEST INSPIRATION | Routin | 10/18/2018 | | Results for this | | AND EXPIRATION | e | 5:02 PM | | procedure are in the | | | | PDT | | results section. | + +--------+ + + + | US GUIDED | Routin | 10/18/2018 | | Results for this | | THORACENTESIS WO | e | 4:07 PM | | procedure are in the | | CHEST TUBE | | PDT | | results section. | + +--------+ + + + | EXTERNAL LAB: CBC | Routin | 10/18/2018 | | Results for this | | | e | 5:44 AM | | procedure are in the | | | | PDT | | results section. | + +--------+ + + + | MAGNESIUM | Routin | 10/18/2018 | | Results for this | | | e | 5:44 AM | | procedure are in the | | | | PDT | | results section. | + +--------+ + + + | COMPREHENSIVE | Routin | 10/18/2018 | | Results for this | | METABOLIC PANEL | e | 5:44 AM | | procedure are in the | | | | PDT | | results section. | + +--------+ + + + | TROPONIN I | Routin | 10/17/2018 | | Results for this | | | e | 6:05 PM | | procedure are in the | | | | PDT | | results section. | + +--------+ + + + | CK TOTAL | Routin | 10/17/2018 | | Results for this | | | e | 6:05 PM | | procedure are in the | | | | PDT | | results section. | + +--------+ + + + | TROPONIN I | Routin | 10/17/2018 | | Results for this | | | e | 11:59 AM | | procedure are in the | | | | PDT | | results section. | + +--------+ + + + | CK TOTAL | Routin | 10/17/2018 | | Results for this | | | e | 11:59 AM | | procedure are in the | | | | PDT | | results section. | + +--------+ + + + | PROTIME INR | Routin | 10/17/2018 | | Results for this | | | e | 8:10 AM | | procedure are in the | | | | PDT | | results section. | + +--------+ + + + | XR CHEST 1 VIEW | Routin | 10/17/2018 | | Results for this | | | e | 3:57 AM | | procedure are in the | | | | PDT | | results section. | + +--------+ + + + | HISTORICAL LAB PANEL | Routin | 10/17/2018 | | Results for this | | RESULT | e | 3:49 AM | | procedure are in the | | | | PDT | | results section. | + +--------+ + + + | TROPONIN I | Routin | 10/17/2018 | | Results for this | | | e | 3:49 AM | | procedure are in the | | | | PDT | | results section. | + +--------+ + + + | B TYPE NATRIURETIC | Routin | 10/17/2018 | | Results for this | | PEPTIDE | e | 3:49 AM | | procedure are in the | | | | PDT | | results section. | + +--------+ + + + documented in this encounter Results Basic Metabolic Panel (10/19/2018 6:20 AM PDT) + + + + + [...] 99 | 99 - 109 mmol/L | EXTERNAL | | | | | | LAB | | + + + + + + | CO2 | 30 | 23 - 32 mmol/L | EXTERNAL | | | | | | LAB | | + + + + + + | Anion Gap | 13 | 5 - 20 mmol/L | EXTERNAL | | | | | | LAB | | + + + + + + | Glucose, | 84 | 65 - 99 mg/dL | EXTERNAL | | | Fasting | | | LAB | | + + + + + + | BUN | 31 (H) | 8 - 25 mg/dL | EXTERNAL | | | | | | LAB | | + + + + + + | Creatinine | 7.2 (H) | 0.50 - 1.00 | EXTERNAL | | | | | mg/dL | LAB | | + + + + + + | BUN/Creatin | 4 | | EXTERNAL | | | ine Ratio | | | LAB | | + + + + + + | Calcium | 9.2 | 8.5 - 10.5 | EXTERNAL | [...] | | | | | | [facility] traceable | | | | | | equation.Testing | | | | | | performed at [facility], [address] | | | | | | [facility], | | | | | | [place] [address] | | | | + + + [...] + XR Chest Inspiration and Expiration (10/18/2018 5:02 PM PDT) + + | Specimen | [...] CHEST 1 VIEW (10/17/2018); CHEST TWO VIEWS [id number] | | | (10/17/2018); FINDINGS: Compared to the prior examination there | | | appears to be interval decrease in the volume of the large right | | | pleural effusion. No pneumothorax is evident. There is persistent | | | large right pleural fluid collection. Cardiomegaly with pulmonary | | | vascular engorgement and cephalization of flow consistent with a CHF | | | pattern again noted. | | + + + + + | Procedure Note | + + | Sonido Steele Conversion - 11/09/2018 9:32 AM PDT CHEST INSPIRATION OR EXPIRATION ONLY | | CLINICAL INFORMATION: | | Post thoracentesis. | | COMPARISON: | | US THORACENTESIS WITH IMAGING GUIDANCE (10/18/2018); XR CHEST 1 VIEW | | (10/17/2018); CHEST TWO VIEWS [id number] (10/17/2018); | | FINDINGS: | | Compared [...] Date/Time: 10/18/2018 6:05 PM | + + US Guided Thoracentesis wo Chest Tube (10/18/2018 4:07 PM PDT) + + | Specimen | + + | | + + + + + | Impressions | Performed At | + + + | Uncomplicated thoracentesis. 1.5 L of turbid yellow fluid which was | | | discarded. Procedure performed by Cheryl Connell PA-C. I, Dr. | | | Colten Hutchins, supervised the procedure [...] ULTRASOUND GUIDED RIGHT THORACENTESIS CLINICAL INFORMATION: | | | Recurrent right pleural effusion. PROCEDURE: Prior to the procedure, | | | risks and benefits were explained [...] pleural space is punctured with an 5 [place] Bandtastic.me catheter. | | | Fluid is aspirated without complication. The patient tolerated the | | | procedure well. No immediate complications. Estimated Blood Loss: | | | Minimal. | | + + + + + | Procedure Note | + + | Sonido Steele Conversion - 11/09/2018 9:32 AM PDT ULTRASOUND GUIDED RIGHT THORACENTESIS | | [...] pleural space is punctured with an 5 Kosovan Yueh | | centesis catheter. Fluid is aspirated without complication. The | | patient tolerated the procedure well. No immediate complications. | | Estimated Blood Loss: Minimal. | | IMPRESSION: | | Uncomplicated thoracentesis. 1.5 L of turbid yellow fluid which was | | discarded. | | Procedure performed by Cheryl Connell PA-C. I, Dr. Howard Sill, | | supervised the procedure and was [...] portions of the exam. | + + External Lab: CBC (10/18/2018 5:44 AM PDT) + + +---- + + + | Component | Value | Ref Range | Performed | Pathologist | | | | | At | Signature | + + +---- + + + | WBC | 5.73 | 3.8 0 - 11.00 | EXTERNAL | | | | | K/u L | LAB | | + + +---- + + + | Non- | 3.24 (L) | 3.7 0 - 5.10 | EXTERNAL | | | Red Blood | | M/u L | LAB | | | Cells | | | | | | Counted | | | | | + + +---- + + + | Hemoglobin | 11.7 | 11. 3 - 15.5 | EXTERNAL | | | | | g/d L | LAB | | + + +---- + + + | Hematocrit, | 35.3 | 34. 0 - 46.0 % | EXTERNAL | | | POC | | | LAB | | + + +---- + + + | MCV | 109.1 (H) | 80. 0 - 100.0 fl | EXTERNAL | | | | | | LAB | | + + +---- + + + | MCH | 36.2 (H) | 27. 0 - 34.0 pg | EXTERNAL | | | | | | LAB | | + + +---- + + + | MCHC | 33.1 | 32. 0 - 35.5 | EXTERNAL | | | | | g/d L | LAB | | + + +---- + + + | RDW-CV | 56.4 (H) | 37 - 53 fl | EXTERNAL | | | | | | LAB | | + + +---- + + + | Platelet | 156 | 150 - 400 K/uL | EXTERNAL | | | Count | | | LAB | | | Plasma | | | | | + + +---- + + + | MPV | 10.0 | fl | EXTERNAL | | | | | | LAB | | + + +---- + + + | Differentia | AUTOMATED | | EXTERNAL | | | l Type | | | LAB | | + + +---- + + + | % Segmented | 65.19 | % | EXTERNAL | | | | | | LAB | | | Neutrophils | | | | | + + +---- + + + | % | 16.92 | % | EXTERNAL | | | Lymphocytes | | | LAB | | + + +---- + + + | % Monocytes | 6.14 | % | EXTERNAL | | | | | | LAB | | + + +---- + + + | % | 10.47 | % | EXTERNAL | | | Eosinophils | | | LAB | | + + +---- + + + | % Basophils | 1.28 | % | EXTERNAL | | | | | | LAB | | + + +---- + + + | Absolute | 3.73 | 1.9 0 - 7.40 | EXTERNAL | | | Segmented | | K/u L | LAB | | | Neutrophils | | | | | + + +---- + + + | Absolute | 0.97 (L) | 1.0 0 - 3.90 | EXTERNAL | | | Lymphocytes | | K/u L | LAB | | + + +---- + + + | Absolute | 0.35 | 0.0 0 - 0.80 | EXTERNAL | | | Monocytes | | K/u L | LAB | | + + +---- + + + | Absolute | 0.60 (H) | 0.0 0 - 0.50 | [...] | | | | | | at [facility], [address] | | | | | | [facility], | | | | | | [place] [address] | | | | | |Testing performed at [facility], [facility] [place] [address] | | | | | | | [...] | | + +---------+ + + Magnesium (10/18/2018 5:44 AM PDT) + + + + + + | Component | Value | Ref Range | Performed | Pathologist | | | | | At | Signature | + + + + + + | Magnesium | 2.4Comment: Testing | 1.7 - 2.4 mg/dL | EXTERNAL | | | | performed at [facility], [address] | | LAB | | | | [address], | | | | | | [place] [address] | | | | + + + [...] + +---------+ + + Comprehensive Metabolic Panel (10/18/2018 5:44 AM PDT) + + + + + + | Component | Value | Ref Range | Performed | Pathologist | | | | | At | Signature | + + + + + + | Na | 138 | 135 - 145 | EXTERNAL | | | | | mmol/L | LAB | | + + + + + + | K | 4.5 | 3.5 - 4.9 | EXTERNAL | | | | | mmol/L | LAB | | + + + + + + | Cl | 99 | 99 - 109 mmol/L | EXTERNAL | | | | | | LAB | | + + + + + + | CO2 | 29 | 23 - 32 mmol/L | EXTERNAL [...] + + + + | Creatinine | 9.3 (H) | 0.50 - 1.00 | EXTERNAL | | | | | mg/dL | LAB | | + + + + + + | BUN/Creatin | 5 | | EXTERNAL | | | ine Ratio | | | LAB | | + + + + + + | Calcium | 9.8 | 8.5 - 10.5 | EXTERNAL | | | | | mg/dL | LAB | | + + + + + + | Protein, | 7.0 | 6.3 - 8.2 g/dL | EXTERNAL | | | Total | | | LAB | | + + + + + + | Albumin | 3.3 (L) | 3.6 - 5.0 g/dL | EXTERNAL | | | | | | LAB | | + + + + + + | Globulin | 3.7 | 1.3 - 4.9 g/dL | EXTERNAL | | | | | | LAB | | + + + + + + | A/G Ratio | 0.9 (L) | 1.0 - 2.4 | EXTERNAL | | | | | | LAB | | + + + + + + | Bilirubin | 0.8 | 0.1 - 1.5 mg/dL | EXTERNAL | | | Total | | | LAB | | + + + + + + | ALP, | 89 | 35 - 115 U/L | EXTERNAL | | | External | | | LAB | | + + + + + + | AST | 28 | 10 - 45 U/L | EXTERNAL | | | | | | LAB | | + + + + + + | ALT | 36 | 10 - 65 U/L | EXTERNAL [...] | | | | | performed at [facility], [address] | | | | | | [facility], | | | | | | [place] [address] | | | | + + + + + + + + | Specimen | + + | Blood specimen | | (specimen) | + + + +---------+ + + | Performing | Address | City/State/Zipcode | Phone Number | | Organization | | | | + +---------+ + + | EXTERNAL LAB | | | | + +---------+ + + Troponin I (10/17/2018 6:05 PM PDT) + + + + + + | Component | Value | Ref Range | Performed | Pathologist | | | | | At | Signature | + + + + + + | Troponin I, | 0.175 (H)Comment: 0.04 | 0.00 - 0.04 | [...] at | | | | | | [facility];[address] [place] [address] | | | | | | [facility];[place] [address] | | | | + + + [...] + +---------+ + + CK Total (10/17/2018 6:05 PM PDT) + + + + + + | Component | Value | Ref Range | Performed | Pathologist | | | | | At | Signature | + + + + + + | CK, Total | 443 (H)Comment: Testing | 30 - 240 U/L | EXTERNAL | | | | performed at [facility];[address] | | LAB | | | | [address];[place], [place] | | | | | | [address] | | | | + + + + + + + + | Specimen | + + | Blood specimen | | (specimen) | + + + +---------+ + + | Performing | Address | City/State/Zipcode | Phone Number | | Organization | | | | + +---------+ + + | EXTERNAL LAB | | | | + +---------+ + + Troponin I (10/17/2018 11:59 AM PDT) + + + + + [...] at | | | | | | [facility];[address] [place] [address] | | | | | | [facility];[place] [address] | | | | + + + [...] + +---------+ + + CK Total (10/17/2018 11:59 AM PDT) + + + + + + | Component | Value | Ref Range | Performed | Pathologist | | | | | At | Signature | + + + + + + | CK, Total | 623 (H)Comment: Testing | 30 - 240 U/L | EXTERNAL | | | | performed at [facility];[address] | | LAB | | | | [address];[place] | | | | | | [address] | | | | + + + + + + + + | Specimen | + + | Blood specimen | | (specimen) | + + + +---------+ + + | Performing | Address | City/State/Zipcode | Phone Number | | Organization | | | | + +---------+ + + | EXTERNAL LAB | | | | + +---------+ + + Protime INR (10/17/2018 8:10 AM PDT) + + + + + [...] | | | | | performed at [facility] | | | | | | [facility];[place], [place] | | | | | | [address] | | | | + + + [...] + XR Chest 1 Vw (10/17/2018 3:57 AM PDT) + + | Specimen | [...] + + | Cedric, Rad Conversion - 11/09/2018 9:32 AM PDT CHEST ONE VIEW | | [...] + HISTORICAL LAB PANEL RESULT (10/17/2018 3:49 AM PDT) + + + + + + | Component | Value | Ref Range | Performed | Pathologist | | | | | At | Signature | + + + + + + | WBC | 6.63 | 3.80 - 11.00 | EXTERNAL | | | | | K/uL | LAB | | + + + + + + | Non- | 3.07 (L) | 3.70 - 5.10 | EXTERNAL | | | Red Blood | | M/uL | LAB | | | Cells | | | | | | Counted | | | | | + + + + + + | Hemoglobin | 10.9 (L) | 11.3 - 15.5 [...] + + + | % Segmented | 70.67 | % | EXTERNAL | [...] at | | | | | | [facility];[address] | | | | | | [address]vd;[place] [address] | | | | + + + + + + + + | Specimen | + + | | + + + +---------+ + + | Performing | Address | City/State/Zipcode | Phone Number | | Organization | | | | + +---------+ + + | EXTERNAL LAB | | | | + +---------+ + + Troponin I (10/17/2018 3:49 AM PDT) + + + + + + | Component | Value | Ref Range | Performed | Pathologist | | | | | At | Signature | + + + + + + | Troponin I, | 0.151 (H)Comment: 0.04 | 0.00 - 0.04 | [...] at | | | | | | [facility];[address] | | | | | | [facility];[place] [address] | | | | + + + [...] + B Type Natriuretic Peptide (10/17/2018 3:49 AM PDT) + + + + + + | Component | Value | Ref Range | Performed | Pathologist | | | | | At | Signature | + + + + + + | BNP | 1,151.26 (H)Comment: | 0 - 100 pg/mL | EXTERNAL | | | | Testing performed at | | LAB | | | | [facility];[address] [facility] | | | | | | [facility];[place] [address] | | | | + + + [...] + | Diagnosis | + + | SOB (shortness of breath) Shortness of breath | + + | Pleural effusion on right Unspecified pleural effusion | + + | ESRD needing dialysis (HCC) End stage renal disease | + + | End stage renal disease (HCC) End stage renal disease | + + documented in this encounter
--- OUTSIDE RECORDS SUMMARY | ~2019-12-21 | XMS | Encounter Summary ---
Demographics + + + | Address | [address] | | | [place] [address] | + + + | Home Phone [...] | | | | | [place] [address] | | + + + + + | Thania Mallory | ECON | [address] | | | | | [place] [address] | | + + + + + | Deidra Weldon | ECON | [address] | | | | | [place] | | | | | [address] | | + + + + + Care Team Providers + +------+ + | Care Exceptional Children'S Teacher Name | Role | Phone | [...] | | | | [address] | [facility] | | | | | [place], | [place], [place] | | | | | [place] [address] | [address] | | | | | [phone] | | | +--------+ + + + [...] is still working on raising money through [employer] to cover their stay and transportation while they are in [place] and post transplant. Pt may have potenti [...] Denise | | | | | | [place], [place] | | | | | | [address] | | | | | | [phone] | | | | | | | | +--------+ + + + + documented as of this encounter Visit Diagnoses Not on filedocumented in this encounter"
--- OUTSIDE RECORDS SUMMARY | ~2019-12-21 | XMS | Encounter Summary ---
Demographics + + + | Address | [address] | | | [place] [address] | + + + | Home Phone [...] | | | | | [place] [address] | | + + + + + | Thania Mallory | ECON | [address] | | | | | [place] [address] | | + + + + + | Deidra Weldon | ECON | [address] | | | | | [place] | | | | | [address] | | + + + + + Care Team Providers + +------+ + | Care Television Installer Helper Name | Role | Phone | [...] | | | [address] | [facility] | | | | | [place], | [place], [place] | | | | | [place] [address] | [address] | | | | | [phone] | | | +--------+ + + + [...] Denise | | | | | | [place], [place] | | | | | | [address] | | | | | | [phone] | | | | | | | | +--------+ + + + + documented as of this encounter Visit Diagnoses Not on filedocumented in this encounter"
--- OUTSIDE RECORDS SUMMARY | ~2019-12-21 | XMS | Encounter Summary ---
Demographics + + + | Address | [address] | | | [place] [address] | + + + | Home Phone [...] | | | | | [place] [address] | | + + + + + | Thania Mallory | ECON | [address] | | | | | [place] [address] | | + + + + + | Deidra Weldon | ECON | [address] | | | | | [place] | | | | | [address] | | + + + + + Care Team Providers + +------+ + | Care Bulk Delivery Driver Name | Role | Phone | [...] | Nephrology at | MD Emanuel [address] [facility] | | | | | [place] | [facility] | | | | | [facility] | [place], [place] | | | | | [address] [facility] [facility] [address] | [address] | | | | | [place] | [phone] | | | | | [facility], | | | | | | [address] [place] [address] | | | | | | [place], [place] | | | | | | [address] | | | | | | [phone] | | | +--------+ + + + [...] Denise | | | | | | [place], [place] | | | | | | [address] | | | | | | [phone] | | | | | | | [...] + + + + + | [facility] | [address] | [place] [address] | [phone] | | HOSPITAL | | | | [...] [address] | [place] [address] | [phone] | | HOSPITAL | | | | [...] [address] | [place] [address] | [phone] | | HOSPITAL | | | | [...] [address] | [place] [address] | [phone] | | HOSPITAL | | | | [...] [address] | [place] [address] | [phone] | | HOSPITAL | | | | [...] [address] | [place] [address] | [phone] | | HOSPITAL | | | | + + + + + documented in this encounter Visit Diagnoses Not on filedocumented in this encounter"
--- OUTSIDE RECORDS SUMMARY | ~2019-12-21 | XMS | Encounter Summary ---
Demographics + + + | Address | [address] | | | [place] [address] | + + + | Home Phone [...] | | | | | [place] [address] | | + + + + + | Thania Mallory | ECON | [address] | | | | | [place] [address] | | + + + + + | Deidra Weldon | ECON | [address] | | | | | [place] | | | | | [address] | | + + + + + Care Team Providers + +------+ + | Care Health And Fitness Instructor Name | Role | Phone [...] | | | [address] | [facility] | | | | | [place], | [place], [place] | | | | | [place] [address] | [address] | | | | | [phone] | | | +--------+ + + + [...] Denise | | | | | | [place], [place] | | | | | | [address] | | | | | | [phone] | | | | | | | | +--------+ + + + + documented as of this encounter Visit Diagnoses Not on filedocumented in this encounter"
--- OUTSIDE RECORDS SUMMARY | ~2019-12-21 | XMS | Encounter Summary ---
Demographics + + + | Address | [address] | | | [place] [address] | + + + | Home Phone [...] + | Author | [facility] | | | and [place] | + + + | Organization | [facility] | | | [...] Team Providers + +------+ + | Care Double End Trimmer Name | Role | Phone | + +------+ + PCP | Unavailable | + +------+ + Encounter Details +--------+ + + + + | Date | Type | Department | Care Team | Description | +--------+ + + + + | 08/26/ | Documentati | RICARDO DILL | Jorje Camp | | | 2013 | on | NEPHROLOGY [address] | M, DO [address] | | | | [address] | [address] [place] | | | | | [place], [place] | [place] [address] | | | | | [address] | [phone] | | | | | [phone] | | | +--------+ + + + [...] + + + | Blood Pressure | 137/92 | 08/26/2013 4:56 PM | | | | | PDT | | + + + + + | Pulse | - | - | | + + + + + | Temperature | 35.7 C (96.3 F) | 08/26/2013 4:56 PM | | | | | PDT [...] this encounter Progress Notes Marilyn Palumbo - 10/03/2013 1:27 PM PDTHemodialysis progress note manually faxed to Wayne Adkins on 10/03/13. IAS Jorje chandler DO - 10/01/2013 4:56 PM PDTFormatting of this note might be different f rom the original. Subjective: DIALYSIS NOTE Patient ID: Dara Weldon [...] w ith her parents. She states that her appetite and energy are fairly good. Outpatient Prescriptions Marked as Taking for the 08/26/13 encounter (Documentation) with Kimberly Camp DO Medication Sig Dispense Refill cholecalciferol (VITAMIN D-3) 1,000 units tablet Take 1,000 Units by mouth Daily. cinacalcet (SENSIPAR) 30 mg tablet Take 30 mg by mouth Daily. Doxercalciferol (HECTOROL IV) Inject 1 mcg into the vein Three times a week. Epoetin Andres (EPOGEN IJ) 3,300 Units by IV Push route Three times [...] No Known Allergies Review of Systems Objective: BP 137/92 | Temp 35.7 C (96.3 F) EDW 92.5 kg Physical Exam Heart: Regular rate and rhythm with no S3, S4, murmur or rub. Lungs: CTA bilaterally. No rales or wheezes. Abdomen: Soft, obese, nontender, normoactive bowel sounds. Extremities: No clubbing, cyanosis, or edema. LAB: BUN 59, Cr 9.2, K+ 4.6, HCO3 19, Ca++ 8.7, PO4 5.2, PTH 151, Alb 3.4, Hb 10.7, eKT/V = 1.53. Assessment: 1. ESRD--he appears well dialyzed by the most recent KT/V. 2. Hypertension--relatively good control on current dry weight. 3. SHPTH--the PTH is stable on a maintenance dose of Hectorol. She is doing well with he r daily Phosphorus restriction. 4. Nutrition--I encouraged her to maximize her intake of high biological value protein. 5. Transplantation--I believe that she is actively pursuing this through the Nephrology Se ction at either [facility] or [facility]? 6. Anemia--will continue the EPO at current dose and recheck the Fe stores next quarter. Plan: 1. Her PTH appears stable on a minimal dose of Hectorol. 2. Will continue to monitor her BP closely. 3. She appears very cooperative and collegial here in clinic. CC: Jamil Harden documented in thi s encounter Plan of Treatment Not on filedocumented as of this encounter Visit Diagnoses Not on filedocumented in this encounter"
--- OUTSIDE RECORDS SUMMARY | ~2019-12-21 | XMS | Encounter Summary ---
Demographics + + + | Address | [address] | | | [place] [address] | + + + | Home Phone [...] | | | | | [place] [address] | | + + + + + | Thania Mallory | ECON | [address] | | | | | [place] [address] | | + + + + + | Deidra Weldon | ECON | [address] | | | | | [place] | | | | | [address] | | + + + + + Care Team Providers + +------+ + | Care Yarn Sizer Name | Role | Phone | + [...] | | | | [address] [place] | [facility] | | | | | [address] [facility], | [place], [place] | | | | | [place] [address] | [address] | | | | | [phone] | | | +--------+ + + + [...] | | | | | | [place] | | | | | | [address] | | | | | | [phone] | | | | | | | | +--------+ + + + + documented as of this encounter Visit Diagnoses Not on filedocumented in this encounter"
--- OUTSIDE RECORDS SUMMARY | ~2019-12-21 | XMS | Encounter Summary ---
Demographics + + + | Address | [address] | | | [place] [address] | + + + | Home Phone [...] | | | | | [place] [address] | | + + + + + | Thania Mallory | ECON | [address] | | | | | [place] [address] | | + + + + + | Deidra Weldon | ECON | [address] | | | | | [place] | | | | | [address] | | + + + + + Care Team Providers + +------+ + | Care Welding Machine Operator Plasma Arc Name | Role | Phone | + [...] MEDICARE 2728; [facility] | | | | [facility] | | ([place] | | | | [address] | | conchita) nephritis; | | | | [place] | | Hemodialysis status | | | | [facility] | | ([facility]); Chronic | | | | 7th Floor [place], | | kidney disease, | | | | [place] [address] | | stage V ([facility]) | | | | [phone] | | | +--------+------+ + + + [...] Denise | | | | | | [place], [place] | | | | | | [address] | | | | | | [phone] | | | | | | | [...] the | | | | PST | ([facility] | results section. | | |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 | | | | | | Hemodialysis status | | | | | | ([facility]) Chronic | | | | | | kidney disease, | | | | | | stage V ([facility]) | | + +--------+ + + + | VARICELLA ZOSTER | Routin | 01/20/2015 | Allergic purpura- | Results for this | | IGG, SERUM | e | 9:59 AM | MEDICARE 2728 [facility] | procedure are in the | | | | PST | ([facility] | results section. | | |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 | | | | | | Hemodialysis status | | | | | | (HCC) Chronic | | | | | | kidney disease, | | | | | | stage V ([facility]) | | + +--------+ + + [...] the | | | | PST | ([facility] | results section. | | [...] the | | | | PST | ([facility] | results section. | | | | [...] the | | | | PST | ([facility] | results section. | | |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 | | | | | | Hemodialysis status | | | | | | ([facility]) Chronic | | | | | | kidney disease, | | | | | | stage V ([facility]) | | + +--------+ + + [...] | | stage V ([facility]) | | + +--------+ + + [...] + | [facility] | [address] | [place] [address] | | | [place] | | | [...] | + + + + + | [facility] | [address] | [place] [address] | | | SERVICES, CORE | LONG [...] | + + + + + | [facility] | [address] | [place] [address] | | | SERVICES, SPECIAL | PARK [...] + + + | [facility] | [address] | [place] [address] | | | DIAGNOSTIC | [address] [...] + | [facility] | [address] | [place] [address] | | | [place] | | | [...] + | [facility] | [address] | [place] [address] | | | [place] | | | [...] + | [facility] | [address] | [place] [address] | | | [place] | | | | + + + [...] + | [facility] | [address] | [place] [address] | | | [place] | | | [...] by | | | | | | [facility] | | | | | | [address], [place], [place] | | | | | | [address] | | | | | | [phone].[employer]. | | | | | | Faisal [...] [facility] | [address] | [place], [place] | | | UN[facility] | | [address] | | + + + + + [...] + | [facility] | [address] | [place] [address] | | | [place] | | | [...] by | | | | | | [facility],[address] | | | | | | [address], [facility] | | | | | | [address] | | | | | | [phone].[employer]. | | | | | | annalee, [...] | + + + + + | [facility] | [address] | [place], [place] | | | UN[facility] - INT[facility] | | [address] | | + + + + + [...] [facility] | [address] | [place] [address] | | | SERVICES, CORE | PARK [...] + | [facility] | [address] | [place] [address] | | | SERVICES, CORE | PARK [...] + + + + + | [facility] | [address] | [place] [address] | | | SERVICES, CORE | LONG [...] + + + + + | [facility] | [address] | [place] [address] | | | SERVICES, CORE | LONG [...] [facility] | [address] | [place] [address] | | | SERVICES, CORE | PARK [...] | | | LABORATORY | | | [place] | | | SERVICES, | | | [...] the MDRD equation recommended by the | [facility] | | National Kidney Disease Education Program. [...] + + + + + | [facility] | [address] | [place] [address] | | | SERVICES, CORE | PARK [...]
--- OUTSIDE RECORDS SUMMARY | ~2019-12-21 | XMS | Encounter Summary ---
Demographics + + + | Address | [address] | | | [place] [address] | + + + | Home Phone [...] | | | | | [place] [address] | | + + + + + | Thania Mallory | ECON | [address] | | | | | [place] [address] | | + + + + + | Deidra Weldon | ECON | [address] | | | | | [place] | | | | | [address] | | + + + + + Care Team Providers + +------+ + | Care Phys Ther Name | Role | Phone | + [...] living/support | | | | [address] [place], | [place], [place] | situation) | | | | [place] [address] | [address] | | | | | [phone] | | | +--------+ + + + [...] living with her father and step-mother in [facility], then when the y left town to go to [place] for 2 weeks, dad lost his job and so now they are lving in [place] , [place] to be near step-mom's job [...] called to inform [place] staff of these [facility] [place] nges, we have initiated the contacts. Pt says she is living temporarily with a friend in at friend's parents home. Pt says they are allowing her to live there "through graduation" later this spring, because they were aware of her living situation "issues." Pt states she plans after graduation, to move to [place] to live with another "best friend" who [...] her mother to be her prim anne home care consultant in the post-[place] period. Pt has not [...] in order for her to stay at [facility] as planned. Transportation , both to [facility] at call-in and aftercare also needed. Plan: [...] new support person once identified. Mariza Hsu, ASSISTANT CORPORATE SECRETARY, FARM HAND Pediatric Renal Transplant Assembler [employer] pg. #[phone] documented in this en counter Plan of Treatment +--------+ + + + + | Date | Type | Specialty | Care Team | Description | +--------+ + + + + | 05/04/ | Hospital | Adult Acute Care | El Starr MD | | | 2022 | Encounter | | [address] | | | | | | [place] | | | | | | [address] | | | | | | [phone] | | | | | | | | +--------+ + + + + documented as of this encounter Visit Diagnoses Not on filedocumented in this encounter
--- OUTSIDE RECORDS SUMMARY | ~2019-12-21 | XMS | Encounter Summary ---
Demographics + + + | Address | [address] | | | [place] [address] | + + + | Home Phone [...] | | | | | [place] [address] | | + + + + + | Thania Mallory | ECON | [address] | | | | | [place] [address] | | + + + + + | Deidra Weldon | ECON | [address] | | | | | [place] | | | | | [address] | | + + + + + Care Team Providers + +------+ + | Care Cloth Folder Hand Name [...] 2013 | | Nephrology at | MD Emanule [address] [facility] | | | | | Alexander | [address] | | | | | [facility] | [place], [place] | | | | | [address] | [address] | | | | | Alexander | [phone] | | | | | [facility], | | | | | | [address] [place] [address] | | | | | | [place], [place] | | | | | | [address] | | | | | | [phone] | | | +--------+ + + + [...] Denise | | | | | | [place], [place] | | | | | | [address] | | | | | | [phone] | | | | | | | | +--------+ + + + + documented as of this encounter Visit Diagnoses Not on filedocumented in this encounter"
--- OUTSIDE RECORDS SUMMARY | ~2019-12-21 | XMS | Encounter Summary ---
Demographics + + + | Address | [address] | | | [place] [address] | + + + | Home Phone [...] Author + + + | Author | [facility] | | | and [place] | + + + | Organization | [facility] | | | [...] Team Providers + +------+ + | Care Bankruptcy Assistant Name | Role | Phone | [...] [address] | | | | | ([facility]) | [address] | [address] | | | | | Anemia in | [place], [place] | [place], | | | | | ESRD | [address] | [place] [address] | | | | | (end-stage | Phone: | Phone: | | | | | renal | [phone] | [phone] | | | | | disease) | Fax: | Fax: | | | | | ([facility]) | [phone] | [phone] | | | | | Procedures | | | | | | | [place] OFFICE | | | | | | [...] | 12/29/ | Off-Site | [facility] [place] | Jorje Camp | ESRD (end stage | | 2015 | Visit | NEPHROLOGY [address] | M, DO [address] | renal disease) ([facility]) | | | | [address] | [address] [place] | (Primary Dx); | | | | [place], [place] | [place] [address] | Anemia in ESRD | | | | [address] | [phone] | (end-stage renal | | | | [phone] | | disease) ([facility]) | +--------+ + + + [...] rechec k her in 2 weeks. CC: Benton Fina Joy MD, [facility], [facility] signed by Jorje Camp DO at 01/20/2015 5:14 PM PSTdocumented in this encount er Plan of Treatment Not on filedocumented as of this encounter Visit Diagnoses + + | Diagnosis | + + | ESRD (end stage renal disease) ([facility]) - Primary End stage renal disease | + + | Anemia in ESRD (end-stage renal disease) (HCC) Anemia in chronic kidney disease | + + documented in this encounter"
--- OUTSIDE RECORDS SUMMARY | ~2019-12-21 | XMS | Encounter Summary ---
Demographics + + + | Address | [address] | | | [place] [address] | + + + | Home Phone [...] + | Author | [facility] | | | and [place] | + + + | Organization | [facility] | | | and [place] | + + + | Address | Unknown | + + + | Phone | Unavailable | + + + Support + + +---------+ + | Name | Relationship | Address | Phone | + + +---------+ + | Thania Mlalory | ECON | Unknown | | + + +---------+ + | Saundra [place] | ECON | Unknown | | + + +---------+ + Care Team Providers + +------+ + | Care Melter Supervisor Name | Role | Phone | + +------+ + PCP | Unavailable | + +------+ + Encounter Details +--------+ + + + + | Date | Type | Department | Care Team | Description | +--------+ + + + + | 03/19/ | Hospital | [facility] | Bolivar Mcqueen MD | | | 2009 | Encounter | HOSPITAL EMERGENCY | | | | | | CENTER [address] | | | | [address] [place], [place] | | | | | | [address] | | | | | | [phone] | | | +--------+ + + + [...]
--- OUTSIDE RECORDS SUMMARY | ~2019-12-21 | XMS | Encounter Summary ---
Demographics + + + | Address | [address] | | | [place] [address] | + + + | Home Phone [...] | | | | | [place] [address] | | + + + + + | Thaina Mallory | ECON | [address] | | | | | [place] [address] | | + + + + + | Deidra Weldon | ECON | [address] | | | | | [place] | | | | | [address] | | + + + + + Care Team Providers + +------+ + | Care Numerical Control Lathe Operator Name | Role | Phone [...] | | 2012 | anned | [address] [facility] | | | | | | [facility] | | | | | | [place], [place] | | | | | | [address] | | | +--------+ + + + [...] Denise | | | | | | [place] | | | | | | [address] | | | | | | [phone] | | | | | | | | +--------+ + + + + documented as of this encounter Visit Diagnoses Not on filedocumented in this encounter"
--- OUTSIDE RECORDS SUMMARY | ~2019-12-21 | XMS | Encounter Summary ---
Demographics + + + | Address | [address] | | | [place] [address] | + + + | Home Phone [...] + + + | Author | [facility] | | | and [place] | + + + | Organization | [facility] | | | [...] Team Providers + +------+ + | Care Asw/Asuw Tactical Air Controller Name | Role | Phone | + +------+ + PCP | Unavailable | + +------+ + Encounter Details +--------+ + + + + | Date | Type | Department | Care Team | Description | +--------+ + + + + | 07/10/ | Orders Only | [facility] | Daniela Ibarra W, | Asthma, mild | | 2015 | | NEPHROLOGY [address] | MD [address] | intermittent, | | | | [address] | [address] [place] | uncomplicated | | | | [place], [place] | [place] [address] | (Primary Dx) | | | | [address] | [phone] | | | | | [phone] | | | +--------+ + + + [...] + | Diagnosis | + + | Asthma, mild intermittent, uncomplicated - Primary | + + documented in this encounter"
--- OUTSIDE RECORDS SUMMARY | ~2019-12-21 | XMS | Encounter Summary ---
Demographics + + + | Address | [address] | | | [place] [address] | + + + | Home Phone [...] + | Author | [facility] | | | and [place] | + + + | Organization | [facility] | | | [...] Providers + +------+ + | Care Medical Reception Name | Role | Phone | + [...] [address] [place] | | | | | [place], [place] | [place] [address] | | | | | [address] | [phone] | | | | | [phone] | | | +--------+ + + + [...] Palumbo - 12/29/2016 3:48 PM PDTOutside records: [facility] form confidential health information for Verna-Suresh RX 60.0MG/300.0MCG/10.0MG Tablet. Dos : 12/29/16. [facility]. P DTdocumented in this encounter Plan of Treatment Not on filedocumented as of this encounter Visit Diagnoses Not on filedocumented in this encounter"
--- OUTSIDE RECORDS SUMMARY | ~2019-12-21 | XMS | Encounter Summary ---
Demographics + + + | Address | [address] | | | [place] [address] | + + + | Home Phone [...] + + + | Author | [facility] | + + + | Organization | [facility] | + + + | Address | Unknown | + + + | Phone | Unavailable | + + + Support + + + + + | Name | Relationship | Address | Phone | + + + + + | Cory Weldon | ECON | [address] | | | | | [place] [address] | | + + + + + | Thania Mallory | ECON | [address] | | | | | [place] [address] | | + + + + + | Deidra Weldon | ECON | [address] | | | | | [place] | | | | | [address] | | + + + + + Care Team Providers + +------+ + | Care Financial Rep Name | Role | Phone | + [...] Nephrology | | Jonathan Gallagher, | [facility] [address] | | | | | | MD [address] | Param Iraheta | | | | | | Keven | [place] | | | | | | [facility] | Children's | | | | | | [address] | [address] | | | | | | [address] | floor | | | | | | [place], | [place], [place] | | | | | | [place] | [address] | | | | | | [address] | Phone: | | | | | | Phone: | [phone] | | | | | | [phone] | | | | | | | Fax: | | | | | | | [phone] | | +--------+--------+ + + + + Encounter Details +--------+---------+ + + + | Date | Type | Department | Care Team | Description | +--------+---------+ + + + | 11/16/ | Office | Specialty Clinics | Sudhakar Joy | Allergic purpura- | | 2015 | Visit | at [facility] [address] | D, MD [address] [facility] [address] | MEDICARE [address] | | | | [address] | [address] | (Primary Dx); HSP | | | | [facility] | [facility] [place] | (Henoch-Schonlein | | | | [facility], | [address] | purpura) nephritis; | | | | [facility] floor | [phone] | Anemia of chronic | | | | [place], [place] | | kidney failure, | | | | [address] | Rtx, [address] | unspecified stage | | | | [phone] | [address] | | | | | | Road [place], [place] | | | | | | [address] | | +--------+---------+ + + + Social [...] soon. Have your friend call Brittney about [phone] Sudhakar Joy MD documented in this encounter Progress Notes Sudhakar Joy MD - 11/17/2015 7:22 PM PDT Pediatric Nephrology Dara was seen on 11/17/2015 for Chief Complaint Patient presents with ESRD - End stage renal disease . The problem list for her is: Patient Active Problem List Diagnosis HSP (Henoch-Schonlein purpura) nephritis Allergic purpura- MEDICARE 272 Anemia of chronic kidney failure Obesity (BMI [...] MD [facility] [address] [facility] ; Mail code [facility]P [place], [place] [id number] documented in this encounter Plan of Treatment +--------+ + + + + | Date | Type | Specialty | Care Team | Description | +--------+ + + + + | 05/04/ Hospital | Adult Acute Care | El Starr MD | | | 2022 | Encounter | | [address] | | | | | | [place], [place] | | | | | | [address] | | | | | | [phone] | | | | | | | [...]
--- OUTSIDE RECORDS SUMMARY | ~2019-12-21 | XMS | Encounter Summary ---
Demographics + + + | Address | [address] | | | [place] [address] | + + + | Home Phone [...] + + + | Author | [facility] | + + + | Organization | [facility] | + + + | Address | Unknown | + + + | Phone | Unavailable | + + + Support + + + + + | Name | Relationship | Address | Phone | + + + + + | Cory Weldon | ECON | [address] | | | | | [place] [address] | | + + + + + | Thania Mallory | ECON | [address] | | | | | [place] [address] | | + + + + + | Deidra Weldon | ECON | [address] | | | | | [place] | | | | | [address] | | + + + + + Care Team Providers + +------+ + | Care Poker In Name | Role | Phone | + [...] Param Iraheta | | | | | ([facility]LY [facility]) | [address]il [address] | Alexander | | | | | Procedures | Long Chan | Children's | | | | | TRANSTHORACI | [place], [place] | [address] | | | | | C | [address] | Floor | | | | | ECHOCARDIOGR | Phone: | [place], [place] | | | | | AM, PEDS | [phone] | [address] | | | | | | Fax: | Phone: | | | | | | [phone] | [phone] | | | | | | | Fax: | | | | | | | [phone] | +--------+--------+ + + + + Reason [...] | [address] | [facility] | | | | | [address] [facility], | [place], [place] | | | | | [place] [address] | [address] | | | | | [phone] | | | +--------+ + + + [...] Denise | | | | | | [place], [place] | | | | | | [address] | | | | | | [phone] | | | | | | | [...] | | | | | SHIN TORREZ (726) on | | | | | | 12/21/2012 9:37:54 AM | | | | + + + + + + + + | Specimen | + + | | + + + + + | Narrative | Performed At | + + + | Please click | [facility] | | on view image for the detailed interpretation from [employer] results. | CARDIOLOGY | + + + + + | Procedure Note | + + | Interface, Cardiology Results - 12/21/2012 9:38 AM PDT Please click on view image | | for the detailed interpretation from [employer] results. | + + + + + + + | Performing | Address | City/State/Zipcode | Phone Number | | Organization | | | | + + + + + | [facility] | [address] | [place], [place] | | | CARDIOLOGY | [address] | [address] | | + + + + + [...] - | [address] | [place], [place] | | | IMMUNOGENETICS/TRANS | [address] [...] - | [address] | [place], [place] | | | IMMUNOGENETICS/TRANS | Suite [...] + + | [facility] - | [address] | [place] [address] | | | IMMUNOGENETICS/TRANS | [address] [...] [facility] - | [address] | [place] [address] | | | IMMUNOGENETICS/TRANS | [address] [...] + + | [facility] - | [address] | [place] [address] | | | IMMUNOGENETICS/TRANS | [address] [...] + + | [facility] - | [address] | [place] [address] | | | IMMUNOGENETICS/TRANS | [address] [...] + + | Performing | Address | City/State/[facility] | Phone Number | | Organization | | | | + +---------+ + + | [facility] DEPARTMENT OF | | | | [...] | + +---------+ + + | [facility] DEPARTMENT | | | | | RADIOLOGY [...] | + +---------+ + + | [facility] DEPARTMENT OF | | | | [...] [facility] | | | , SERUM | [facility],[address] | | REG UNIV | | | | [address] [place], [facility] | | PTH - INTFC | | | | [address] | | | | | | [phone].Social Shopping Networkuplab. | | | | | | Faisal [...] [facility] | [address] | [place], [place] | | | UNIV PTH - INTFC | | [address] | | + + + + + [...] | + + + + + | [facility] | [address] | [place] [address] | | | SERVICES, CORE | PARK [...] | + + + + + | [facility] | [address] | [place] [address] | | | SERVICES, CORE | LONG [...] + | [facility] - | [address] | [place] [address] | | | [place] | | | [...] [facility] | [address] | [place] [address] | | | SERVICESHOMERO | [address] [...] [facility] | [address] | [place] [address] | | | SERVICES, CORE | LONG [...] [facility] | [address] | [place] [address] | | | SERVICES, CORE | LONG [...] - | | | | | | CENTER | | + + + + + + + + | Specimen | + + | Blood - Blood | + + + + + + + | Performing | Address | City/State/Zipcode | Phone Number | | Organization | | | | + + + + + | [facility] | [address] | [place] [address] | | | [facility] | | | | + + + [...] at: | | | | | | http://www.cdc.gov/nchstp/tb/pubs/tbfactssheets/399438.htm | | | Test performed by: [facility] [address] | [address] [place] [address] | | + + + + + [...] | + + + + + | [facility] | [address] | [place] [address] | | | SERVICES, SPECIAL | PARK [...] INTERPRETATION: Prothrombin mutation analysis shows that | [facility] | | there is no mutation in either copy of the prothrombin gene at | DIAGNOSTIC | | nucleotide [address]24. Please note that this assay only detects the | LABORATORIES | | [id number] point mutation and therefore a normal result [...] has been analyzed for the presence of I81282A | | | mutation in the prothrombin [...] | | Heterozygotes for the common prothrombin [id number] mutation constitute | | | approximately 2% of the normal white population (1,2). | | | References: 1.) Poort et al. Blood 88, 1011-8654 (1996). 2.) Ricardo | | | et al. Circulation 99, 999-1004 (1998). 3.) Al Montalvo, and | | | Press. Amer J Clin Path 155, 439-68 (2001). This test was | | | developed and its performance characteristics determined by the [facility] | | | [facility]. It has | [...] CLIA, CAP, and | | | the [facility]. Please note that our lab now also [...] + + | Performing | Address | City/State/[facility] Hospitalcode | Phone Number | | Organization | | | | + + + + + | [facility] | [address] | [place] [address] | | | DIAGNOSTIC | [address] [...] [facility] | [address] | [place] [address] | | | SERVICES, CORE | PARK [...] | + + + + + | [facility] | [address] | [place] [address] | | | SERVICES, CORE | LONG [...] | + + + + + | [facility] | [address] | [place] [address] | | | SERVICES, CORE | LONG [...] | + + + + + | [facility] | [address] | [place] [address] | | | SERVICES, CORE | LONG [...] | | | | Laboratories,[address] [facility] | | | | | | [place], [place] [address] | | | | | | [phone].aruplab. | | | | | | Faisal [...] [facility] | [address] | [place], [place] | | | UNIV PTH - INTFC | | [address] | | + + + + + [...] | + + + + + | [facility] | [address] | [place] [address] | | | SERVICES, SPECIAL | PARK [...] + + + + | [facility] | [address] | [place] [address] | | | DIAGNOSTIC | [address] [...] + | [facility] - | [address] | [place] [address] | | | CENTER | | | | + + + [...] + | [facility] - | [address] | [place] [address] | | | [place] | | | [...] | | | SERUM | | | [facility] | | + + + + + + + + | Specimen | + + | Blood - Blood | + + + + + + + | Performing | Address | City/State/Zipcode | Phone Number | | Organization | | | | + + + + + | [facility] - | [address] | [place] [address] | | | [place] | | | [...] | + + + + + | [facility] [employer] [facility] - | [address] | [place] [address] | | | [place] | | | [...] less......Not | | | | | | Jlkofuuw45.0-21.9 | | | | | | U/mL.........Indetermina [...] available | | | | | | atwww.[email or web address]/eb | | | | | | vdx.Performed by [facility] | | | | | | [facility] | | | | | | [place] [address] | | | | | | [phone].Social Shopping Networklab. | | | | | | Faisal [...] [facility] | [address] | [place], [place] | | | UNIV PTH - INTFC | | [address] | | + + + + + [...] | + + + + + | [facility] [employer] - [facility] - | [address] | [place] [address] | | | [place] | | | [...] | + + + + + | [facility] | [address] | [place] [address] | | | SERVICES, CORE | LONG [...] by | | | | | | [employer],[address] | | | | | | [address], [facility] | | | | | | [address] | | | | | | [phone].[employer]. | | | | | | [facility], Faisal Caraballo, | | | | | [...] [facility] | [address] | [place], [place] | | | UNIV PTH - INTFC | | [address] | | + + + + + [...] [facility] | [address] | [place] [address] | | | SERVICES, CORE | PARK [...] [facility] | [address] | [place] [address] | | | HOMERO LAN | LONG [...] [facility] | [address] | [place] [address] | | | HOMERO LAN | LONG [...]
--- OUTSIDE RECORDS SUMMARY | ~2019-12-21 | XMS | Encounter Summary ---
Demographics + + + | Address | [address] | | | [place] [address] | + + + | Home Phone [...] | Author | [facility] | | | and [place] | + + + | Organization | [facility] | | | [...] Team Providers + +------+ + | Care Crystal Flat Grinder Name | Role | Phone | [...] to | | | obtain one in Supply. I explained that we would have to [...] CTR PRE | [facility] [address] | Pre-evaluation | | | | KIDNEY TRANSPLANT | [place] [address], | (Dara lvm so I | | | | [address] [place] | [place] [address] | called her back to | | | | [address] | [phone] | complete intake | | | | [address] | | questionnaire. She | | | | [phone] | | currently ingests | | | [...] | | | | | one in Supply. I | | | | | | [...] documented as of this encounter Progress Notes LisetElodia - 06/13/2018 9:54 AM PDTReferral: Dara whelan so I called her back to complete intake questionnaire. She currently ingests da kamron marijuana edibles with no current [place] medical card/auth to do so. Her MD stated she would have to obtain one in Supply. I explained that we would have to close out her referral u ntil she obtains a medical/auth card for medicinal use and then be re-referred. A letter wou ld be sent to her as well and she can call us with any further questions.Electronically sign ed by Elodia Hutchins at 06/13/2018 10:19 AM PDTdocumented in this encounter Plan of Treatment Not on filedocumented as of this encounter Visit Diagnoses Not on filedocumented in this encounter"
--- OUTSIDE RECORDS SUMMARY | ~2019-12-21 | XMS | Encounter Summary ---
Demographics + + + | Address | [address] | | | [place] [address] | + + + | Home Phone [...] | | | | | [place] [address] | | + + + + + | Thania Mallory | ECON | [address] | | | | | [place] [address] | | + + + + + | Deidra Weldon | ECON | [address] | | | | | [place] | | | | | [address] | | + + + + + Care Team Providers + +------+ + | Care Tack Cutter Name | Role | Phone | + +------+ + | Jonathan Alonso MD | PCP | | + +------+ + Encounter Details +--------+ + + + + | Date | Type | Department | Care Team | Description | +--------+ + + + + | 01/27/ | Ancillary | Registration 3[address] | Other, Faculty | | | 2005 | Registratio | Anil Elizondo | [phone] | | | | n | [address] Mailcode: [address] | | | | | | [place], [place] | | | | | | [address] | | | | | | [phone] | | | +--------+ + + + [...] Denise | | | | | | [place], [place] | | | | | | [address] | | | | | | [phone] | | | | | | | | +--------+ + + + + documented as of this encounter Procedures + +--------+ + + + | Procedure Name | Priori | Date/Time | Associated Diagnosis | Comments | | | ty | | | | + +--------+ + + + | SURGICAL PATHOLOGY | Routin | 01/27/2006 | | Results for this | | | e | | | procedure are in the | | | | | | results section. 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 The IgA | | | | | | deposits are mesangial | | | | | | with markedfocal and | | | | | | segmental variation, | | | | | | apparently reflecting | | | | | | the variable integrityof | | | | | | the glomeruli. Given | | | | | | the clinical history, | | | | | | Henoch Schonlein | | | | | | purpura(HSP) is favored. | | | | | | An atypical form | | | | | | infection-associated | | | | | | glomerulonephritiscannot | | | | | | be ruled out. Case | | | | | | reviewed by:Gold Ewing | | | | | | Kt | | | | | | M.Marcia/PathologistT:02/02/ | | | | | | 06:bonny I have reviewed | | | | | | all diagnostic slides | | | | | | and have edited the | | | | | | gross and/ormicroscopic | | | | | | portion of this report | | | | | | as part of my pathologic | | | | | | assessment andfinal | | | | | | diagnosis. Clinical | | | | | | History:The patient is a | | | | | | 10-year-old girl who | | | | | | presented with gross | | | | | | hematuria,hypertension | | | | | | and a creatinine of 3.5. | | | | | | She also had a lower | | | | | | extremity rashrecently. | | | | | | Her C3 is normal, and | | | | | | her EDWARDO and ANCA are | | | | | | negative. Gross | | | | | | Description:The | | | | | | specimens are received | | | | | | in glutaraldehyde and | | | | | | Naldo transport | | | | | | mediumfrom Dr. De La Fuente | | | | | | [facility], [facility] | | | | | [facility], [place], | | | | | | [place] | | | | | | kidney biopsy. Present | | | | | | are two flores needle core | | | | | | segments oftissue, | | | | | | ranging from 0.4-0.5 cm | | | | | | in length x 0.1 cm in | | | | | | uniform diameter.They | | | | | | are submitted in toto | | | | | | for immunofluorescence | | | | | | and electron | | | | | | microscopy.Four outside | | | | | | slides are received for | | | | | | correlation bearing the | | | | | | patient's nameand | | | | | | outside accession number | | | | | | [id number].[facility]/lab | | | | | | Microscopic | | | | | | Description:Slides | | | | | | received for correlation | | | | | | bear multiple levels of | | | | | | a single needlecore | | | | | | segment of renal cortex, | | | | | | containing about nine | | | | | | glomeruli per level,all | | | | | | or most of which have | | | | | | formed cellular | | | | | | crescents. The | | | | | | glomerular tuftsare | | | | | | compressed in many | | | | | | instances, but | | | | | | endocapillary or | | | | | | mesangialproliferation | | | | | | is evident in some. | | | | | | The tubules are | | | | | | generally | | | | | | intact,although | | | | | | focally by | | | | | | edema and patches of | | | | | | mixed inflammatorycells. | | | | | | Arteries are | | | | | | apparently normal. | | | | | | Immunofluorescence | | | | | | Analysis: Frozen | | | | | | sections, including | | | | | | positive controls,are | | | | | | stained with | | | | | | fluoresceinated | | | | | | antisera. Each level | | | | | | contains fourglomeruli, | | | | | | one or two of which at | | | | | | least contain crescents. | | | | | | RESULTS:IgG: | | | | | | NegativeIgM: | | | | | | 1+ peripheral | | | | | | glomerular capillary | | | | | | wall depositsIgA: | | | | | | 2+ focal, segmental | | | | | | mesangial depositsKappa: | | | | | | | | | | | | EquivocalLambda: 1+, | | | | | | similar to IgAC3: | | | | | | 3+ mesangial and | | | | | | capillary wall | | | | | | [id number]: | | | | | | NegativeFibrinogen: | | | | | | Bright generalized | | | | | | glomerular staining, | | | | | | probably nonspecific | | | | | | (Analyte specific | | | | | | reagents are used in | | | | | | many laboratory tests | | | | | | necessary forstandard | | | | | | medical care and | | | | | | generally do not require | | | | | | FDA approval. This | | | | | | testwas developed and | | | | | | its performance | | | | | | characteristics | | | | | | determined by | | | | | | [facility]. It has | | | | | | not been cleared or | | | | | | approved by the U.S. | | | | | | Food and | | | | | | DrugAdministration.) | | | | | | Electron Microscopy: | | | | | | This part of the | | | | | | specimen contains three | | | | | | glomeruli,one of which | | | | | | has formed a cellular | | | | | | crescent. Otherwise, | | | | | | glomeruli showmesangial | | | | | | proliferation. By | | | | | | electron microscopy, | | | | | | glomeruli contain | | | | | | bulkymesangial deposits. | | | | | | Smaller | | | | | | subendothelial deposits | | | | | | are also present.There | | | | | | are no tubulo-reticular | | | | | | structures. Basement | | | | | | membranes are | | | | | | generallyuniform. Foot | | | | | | processes are | | | | | | extensively effaced. | | | | | | In a glomerulus | | | | | | withextensive collapse | | | | | | the deposits are | | | | | | relatively scarce. | | | | | | Fibrin has formedin | | | | | | the urinary space in the | | | | | | vicinity of a collapsed | | | | | | lobule, capped by | | | | | | anepithelial | | | | | | cell.Rendering | | | | | | Diagnostician: Gold | | | | | | Kaylin Meraz | | | | | | ElizaPathologistElectroni | | | | | | cortez Signed 02/06/2006 | | | | + + + + + + + + | Specimen | + + | | + + + + + | Narrative | Performed At | + + + | Ordered by Rufino De La Fuente | [facility] | | | DEPARTMENT OF | | | PATHOLOGY | + + + + + + + + | Performing | Address | City/State/Zipcode | Phone Number | | Organization | | | | + + + + + | [facility] DEPARTMENT OF | [facility] | [place] [address] | | | PATHOLOGY | [address] | | | + + + + + | [facility] DEPARTMENT [facility] | [address] | [place] [address] | | | PATHOLOGY | [address] | | | + + + + + documented in this encounter Visit Diagnoses Not on filedocumented in this encounter"
--- OUTSIDE RECORDS SUMMARY | ~2019-12-21 | XMS | Encounter Summary ---
Demographics + + + | Address | [address] | | | [place] [address] | + + + | Home Phone [...] Author + + + | Author | [facility] | | | and [place] | + + + | Organization | [facility] | | | and [...] Team Providers + +------+ + | Care Maintenance Superintendent Name | Role | Phone | + [...] [address] | | | | | ([facility]) | [address] | [address] | | | | | Anemia in | [place], [place] | [place], | | | | | ESRD | [address] | [place] [address] | | | | | (end-stage | Phone: | Phone: | | | | | renal | [phone] | [phone] | | | | | disease) | Fax: | Fax: | | | | | ([facility]) | [phone] | [phone] | | | | | Procedures | [...] | 08/29/ | Off-Site | [facility] [place] | Jorje Camp | ESRD (end stage | | 2017 | Visit | NEPHROLOGY [address] | M, DO [address] | renal disease) ([facility]) | | | | [address] | [address] [place] | (Primary Dx) | | | | [place], [place] | [place] [address] | | | | | [address] | [phone] | | | | | [phone] | | | +--------+ + + + [...] is seen on the MWF shift at [place], [place]. 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 Sadly, efforts at counseling by multiple caregivers including Dr. Ibarra, myself, Staff Nurs , and Clinic FUR FINISHER TAILOR have failed to reach her. She continues [...] the 08/29/16 encounter (Off-Site Visit) with Camille Camp, DO Medication Sig Dispense Refill albuterol 90 [...] Will recheck her in 2 weeks. : [place] Fina Joy M.D., Pediatric Nephrology, [facility] documented in t his encounter Plan of Treatment Not on filedocumented as of this encounter Visit Diagnoses + + | Diagnosis | + + | ESRD (end stage renal disease) (HCC) - Primary End stage renal disease | + + documented in this encounter"
--- OUTSIDE RECORDS SUMMARY | ~2019-12-21 | XMS | Encounter Summary ---
Demographics + + + | Address | [address] | | | [place] [address] | + + + | Home Phone [...] Team Providers + +------+ + | Care [address] Vendor Name | Role | Phone | + [...] [address] [place] | | | | | [place], [place] | [place] [address] | | | | | [address] | [phone] | | | | | [phone] | | | +--------+--------+ + + + [...]
--- OUTSIDE RECORDS SUMMARY | ~2019-12-21 | XMS | Encounter Summary ---
Demographics + + + | Address | [address] | | | [place] [address] | + + + | Home Phone [...] Team Providers + +------+ + | Care Production Officer Name | Role | Phone | [...] Specialty | Surgery / | Diagnoses | Strosusannal, | Field, | | | Services | General | ESRD (end | Jorje Obrien, | Blake I, | | | Required | Surgery | stage renal | DO [address] | [address] | | | | | disease) | [address] | [address] | | | | | ([facility]) | [address] | [place], | | | | | | [place], | [place] [address] | | | | | | [address] | Phone: | | | | | | Phone: | [phone] | | | | | | [phone] | Fax: | | | | | | Fax: | [phone] | | | | | | [phone] | | +--------+ + + + + [...] DO [address] | renal disease) (HCC) | | | | [address] | [address] [place] | (Primary Dx) | | | | [place], [place] | [place] [address] | | | | | [address] | [phone] | | | | | [phone] | | | +--------+ + + + [...] of this encounter Plan of Treatment + + +--------+ + + | Name | Type | Priori | Associated Diagnoses | Order Schedule | | | | ty | | | + + +--------+ + + | * [facility] | Outpatient | Routin | ESRD (end stage | Ordered: 02/03/2014 | | Surgery - AMB | Referral | e | renal disease) (HCC) | | | Referral | | | | | + + +--------+ + + documented as of this encounter Visit Diagnoses + + | Diagnosis | + + | ESRD (end stage renal disease) (HCC) - Primary End stage renal disease | + + documented in this encounter"
--- OUTSIDE RECORDS SUMMARY | ~2019-12-21 | XMS | Encounter Summary ---
Demographics + + + | Address | [address] | | | [place] [address] | + + + | Home Phone [...] | | | | | [place] [address] | | + + + + + | Thania Mallory | ECON | [address] | | | | | [place] [address] | | + + + + + | Dedira Weldon | ECON | [address] | | | | | [place] | | | | | [address] | | + + + + + Care Team Providers + +------+ + | Care Elderly Companion Name | Role | Phone | + [...] [address] | [facility] | | | | | [address] [place] [place], | [place], [place] | | | | | [place] [address] | [address] | | | | | [phone] | | | +--------+ + + + [...] Denise | | | | | | [place], [place] | | | | | | [address] | | | | | | [phone] | | | | | | | [...] + + | [facility] - | [address] | [place], [place] | [phone] | | [place] | | | | + + + + + documented in this encounter Visit Diagnoses Not on filedocumented in this encounter"
--- OUTSIDE RECORDS SUMMARY | ~2019-12-21 | XMS | Encounter Summary ---
Demographics + + + | Address | [address] | | | [place] [address] | + + + | Home Phone [...] | | | | | [place] [address] | | + + + + + | Thania Mallory | ECON | [address] | | | | | [place] [address] | | + + + + + | Deidra Weldon | ECON | [address] | | | | | [place] | | | | | [address] | | + + + + + Care Team Providers + +------+ + | Care Gardening Instructor Name | Role | Phone | [...] Nephrology | | Jonathan Gallagher, | [facility] [address] | | | | | | [address] | Param Iraheta | | | | | | Keven | [place] | | | | | | [facility] | Children's | | | | | | [address] | [address] | | | | | | [address] | floor | | | | | | [place], | [place], [place] | | | | | | [place] | [address] | | | | | | [address] | Phone: | | | | | | Phone: | [phone] | | | | | | [phone] | | | | | | | Fax: | | | | | | | [phone] | | +--------+--------+ + + + + Encounter Details +--------+---------+ + + + | Date | Type | Department | Care Team | Description | +--------+---------+ + + + | 05/11/ | Office | Specialty Clinics | Sudhakar Joy | HSP | | 2016 | Visit | at [facility] [address] | DMD [address] | (David | | | | [address] | [address] | purpura) nephritis | | | | [address] | [place], [place] | (Primary Dx); Anemia | | | | [facility], | [address] | of chronic kidney | | | | 7th floor | [phone] | failure, stage 5 | | | | [place], [place] | | ([facility]) | | | | [address] | | | | | | [phone] | | | +--------+---------+ + + + [...] 05/12/2015 11:19 AM PSTKeep working on the K[employer] phosphorus and financial plan See me in [...] [address] Mail code [facility] [place], [place] [address] Estrella Brennan MA - 05/12/2015 10:48 AM [...] Denise | | | | | | [place], [place] | | | | | | [address] | | | | | | [phone] | | | | | | | [...]
--- OUTSIDE RECORDS SUMMARY | ~2019-12-21 | XMS | Encounter Summary ---
Demographics + + + | Address | [address] | | | [place] [address] | + + + | Home Phone [...] | | | | | [place] [address] | | + + + + + | Thania Mallory | ECON | [address] | | | | | [place] [address] | | + + + + + | Deidra Weldon | ECON | [address] | | | | | [place] | | | | | [address] | | + + + + + Care Team Providers + +------+ + | Care Junior Php Developer Name | Role | Phone | [...] | | | MD [address] | [facility] | | | | | | Keven | [place] | | | | | | Hospital | Children's | | | | | | [address] | [address] | | | | | | [address] | floor | | | | | | [place], | [place], [place] | | | | | | [place] | [address] | | | | | | [address] | Phone: | | | | | | Phone: | [phone] | | | | | | [phone] | | | | | | | Fax: | | | | | | | [phone] | | +--------+--------+ + + + + Encounter Details +--------+---------+ + + + | Date | Type | Department | Care Team | Description | +--------+---------+ + + + | 01/20/ | Office | Specialty Clinics | Sudhakar Joy | HSP | | 2015 | Visit | at [facility] [address] | MD [address] | (David | | | | [address] | [facility] [address] | purpura) nephritis | | | | [address] | [place], [place] | (Primary Dx); | | | | Children's [facility], | [address] | Allergic purpura- | | | | [facility] | [phone] | MEDICARE 8910; | | | | [place], [place] | | Anemia of chronic | | | | [address] | | kidney failure, | | | | [phone] | | stage 5 (HCC); | | [...] HSP (Henoch-Schonlein purpura) nephritis Allergic purpura- MEDICARE 2725 Anemia of chronic kidney failure Obesity (BMI [...] MD [facility] [address] Mail code [facility] [place], [place] [address] documented in this encounter Plan of Treatment +--------+ + + + + | Date | Type | Specialty | Care Team | Description | +--------+ + + + + | 05/04/ | Hospital | Adult Acute Care | El Starr MD | | | 2022 | Encounter | | [address] | | | | | | [place], [place] | | | | | | [address] | | | | | | [phone] | | | | | | | [...]
--- OUTSIDE RECORDS SUMMARY | ~2019-12-21 | XMS | Encounter Summary ---
Demographics + + + | Address | [address] | | | [place] [address] | + + + | Home Phone [...] | Author | [facility] | | | and [place] | + + + | Organization | [facility] | | [...] Team Providers + +------+ + | Care Energy Systems Laboratory Director Name | Role | Phone | + +------+ + PCP | Unavailable | + +------+ + Reason for Visit +---------+ + | Reason | Comments | +---------+ + | Post Op | | +---------+ + Encounter Details +--------+ + + + + | Date | Type | Department | Care Team | Description | +--------+ + + + + | 03/05/ | Clinical | [facility] | Blake Chavarria | End stage renal | | 2013 | Support | SURGERY [address] | MD Antonieta, FACS [address] | failure on dialysis | | | | [address] [place], [place] | [facility] | (HCC) (Primary Dx) | | | | [address] | [place] [address] | | | | | [phone] | [phone] | | | | | | | [...] + + + | Blood Pressure | 100/58 | 03/05/2014 8:24 AM | | | | | PST | | + + + + + | Pulse | 73 | 03/05/2014 8:24 AM | | | | | PST | | + + + + + | Temperature | 35.9 C (96.6 F) | 03/05/2014 8:24 AM | | | | | PST | | + + + + + | Respiratory Rate | 11 | 03/05/2014 8:24 AM | | | | | PST | | + + + + + | Oxygen Saturation | 99% | 03/05/2014 8:24 AM | | | | | PST [...] + documented in this encounter Progress Notes Daniela John RN - 03/05/2014 8:36 AM FLEXDara is here with her Dad. Left arm radial a v fistula good thrill, palpable with very light contact. No dressing over incision which is healing well. States her hand gets a little cold sometimes. Has no questions and is followi ng up with Dr Chavarria 03/20/2014. Educated patient how to palpate for thrill daily and to avoid sleeping on that arm. Assured patient that if she has any questions she can call our offic e. documented in this e ncounter Plan of Treatment Not on filedocumented as of this encounter Visit Diagnoses + + | Diagnosis | + + | End stage renal failure on dialysis (HCC) - Primary End stage renal disease | + + documented in this encounter"
--- OUTSIDE RECORDS SUMMARY | ~2019-12-21 | XMS | Encounter Summary ---
Demographics + + + | Address | [address] | | | [place] [address] | + + + | Home Phone [...] | | | | | [place] [address] | | + + + + + | Thania Mallory | ECON | [address] | | | | | [place] [address] | | + + + + + | Deidra Weldon | ECON | [address] | | | | | [place] | | | | | [address] | | + + + + + Care Team Providers + +------+ + | Care Yarn Polishing Machine Operator Name | Role | Phone [...] | | | | [address] | [facility] | | | | | [address] [place], | [place], [place] | | | | | [place] [address] | [address] | | | | | [phone] | | | +--------+ + + + [...] Denise | | | | | | [place], [place] | | | | | | [address] | | | | | | [phone] | | | | | | | | +--------+ + + + + documented as of this encounter Visit Diagnoses Not on filedocumented in this encounter"
--- OUTSIDE RECORDS SUMMARY | ~2019-12-21 | XMS | Encounter Summary ---
Demographics + + + | Address | [address] | | | [place] [address] | + + + | Home Phone [...] | | | | | [place] [address] | | + + + + + | Thania Mallory | ECON | [address] | | | | | [place] [address] | | + + + + + | Deidra Weldon | ECON | [address] | | | | | [place] | | | | | [address] | | + + + + + Care Team Providers + +------+ + | Care Putty Mixer And Applier Name | Role | Phone | + [...] | | | [address] | [facility] | | | | | [address] [place], | [place], [place] | | | | | [place] [address] | [address] | | | | | [phone] | | | +--------+ + + + [...] Denise | | | | | | [place], [place] | | | | | | [address] | | | | | | [phone] | | | | | | | | +--------+ + + + + documented as of this encounter Visit Diagnoses Not on filedocumented in this encounter"
--- OUTSIDE RECORDS SUMMARY | ~2019-12-21 | XMS | Encounter Summary ---
Demographics + + + | Address | [address] | | | [place] [address] | + + + | Home Phone [...] Team Providers + +------+ + | Care Help Desk Technician Name | Role | Phone | + +------+ + PCP | Unavailable | + +------+ + Reason for Visit +--------+--------+ + | Reason | Onset | Comments | | | Date | | +--------+--------+ + | Other | 05/21/ | | | | 2015 | | +--------+--------+ + Encounter Details +--------+ + + + + | Date | Type | Department | Care Team | Description | +--------+ + + + + | 05/21/ | Telephone | [facility] [place] | Daniela Ibarra W, | Other | | 2015 | | NEPHROLOGY [address] | [address] | | | | | [address] | [address] [place] | | | | | [place], [place] | [place] [address] | | | | | [address] | [phone] | | | | | [phone] | | | +--------+ + + + [...] this encounter Miscellaneous Notes Telephone Encounter - Merly Cortes RN - 05/21/2014 2:54 PM PDTCatalina's mother, Luke byrnes, called to report her daughter feels awful all the time and wonders if there is anything different the patient should be doing to feel better. Thania reported she's never visited with Dr. Ibarra before but was hoping she could discus s pts care. Will notify Dr. Ibarra of Thania's request. Thania can be reached at [phone] signed by Merly Cortes RN at 05/21 3:09 PM PDTdocumented in this encounter Plan of Treatment Not on filedocumented as of this encounter Visit Diagnoses Not on filedocumented in this encounter"
--- OUTSIDE RECORDS SUMMARY | ~2019-12-21 | XMS | Encounter Summary ---
Demographics + + + | Address | [address] | | | [place] [address] | + + + | Home Phone [...] Providers + +------+ + | Care Manager Animal Name | Role | Phone | [...] [address] [place] | | | | | [place], [place] | [place] [address] | | | | | [address] | [phone] | | | | | [phone] | | | +--------+ + + + [...]
--- OUTSIDE RECORDS SUMMARY | ~2019-12-21 | XMS | Encounter Summary ---
Demographics + + + | Address | [address] | | | [place] [address] | + + + | Home Phone [...] | | | | | [place] [address] | | + + + + + | Thania Mallory | ECON | [address] | | | | | [place] [address] | | + + + + + | Deidra Weldon | ECON | [address] | | | | | [place] | | | | | [address] | | + + + + + Care Team Providers + +------+ + | Care Fitter/Welder Name | Role | Phone | + [...] Visit | Services Inpatient | [address] [facility] | disease, stage V | | | | [address] [facility] | [address] | (HCC) (Primary Dx) | | | | [address] | [place], [place] | | | | | [facility] | [address] | | | | | [place], [place] | [phone] | | | | | [address] | | | | | | [phone] | | | +--------+---------+ + + + [...] a nutrition perspective. Argentina Mehta, MS, RD, AU PAIR, LD documented in this e ncounter Plan of Treatment +--------+ + + + + | Date | Type | Specialty | Care Team | Description | +--------+ + + + + | 05/04/ | Hospital | Adult Acute Care | El Starr MD | | | 2022 | Encounter | | [address] | | | | | | [place], [place] | | | | | | [address] | | | | | | [phone] | | | | | | | | +--------+ + + + + documented as of this encounter Procedures + +--------+ + + + | Procedure Name | Priori | Date/Time | Associated Diagnosis | Comments | | | ty | | | | + +--------+ + + + | PA MNT INITIAL | Routin | 12/21/2012 | [...]
--- OUTSIDE RECORDS SUMMARY | ~2019-12-21 | XMS | Encounter Summary ---
Demographics + + + | Address | [address] | | | [place] [address] | + + + | Home Phone [...] + + + | Author | [facility] | | | and [place] | + + + | Organization | [facility] | | [...] Providers + +------+ + | Care Finish Remover Name | Role | Phone | + +------+ + PCP | Unavailable | + +------+ + Encounter Details +--------+ + + + + | Date | Type | Department | Care Team | Description | +--------+ + + + + | 04/07/ | Hospital | [facility] | Conversion | | | 2015 | Encounter | [facility] | Transaction, | | | | | CLINIC [address] | Provider Unknown | | | | | [address] [place], [place] | | | | | | [address] | (Fax) | | | | | [phone] | | | +--------+ + + + [...] + + documented as of this encounter Procedure Notes Conversion Transaction, Provider Unknown - 04/07/2014 6:55 PM PSTFormatting of this note m ight be different from the original. Pre-Procedure Instructions by Sulma Alanis RN at 04/07/141854 Author: Sulma Alanis RN Service: (none) Author Type: Registered Nurse Filed: 04/07/141855 Date of Service: 04/07/141854 Status: Signed Sludge Filtration Attendant: Sulma Alanis RN (Registered Nurse) Called Dr Bertrand, no answer, to report abnormal lab values: PTT 43, creatinine 7.21. Called and spoke with Dr Roldan, report lab values, and no new orders rec'd. onver arturo Transaction, Provider Unknown - 04/07/2014 5:51 PM PST Pre-Procedure Instructions by Sulma Alanis RN at 04/07/141750 Author: Sulma Alanis RN Service: (none) Author Type: Registered Nurse Filed: 04/07/141854 Date of Service: 04/07/141750 Status: Addendum Sludge Filtration Attendant: Sulma Alanis RN (Registered Nurse) Related Notes: Original Note by Sulma Alanis RN (Registered Nurse) filed at 04/07/141751 Pt meets METS of 4 per AHA guidelines. Pt receives dialysis MWF, cath is in right upper ana st. docume nted in this encounter Plan of Treatment Not on filedocumented as of this encounter Procedures + +--------+ + + + | Procedure Name | Priori | Date/Time | Associated Diagnosis | Comments | | | ty | | | | + +--------+ + + + | EXTERNAL LAB: CBC | Routin | 04/07/2014 | | Results [...] performed at [facility];[address] [place] [address];[place] [address] MRSA PCR | | | NEGATIVE Testing performed at | | | [address];[place] [address] | | + + + + +---------+ [...] | LAB | | | | Nica [address]pe[address];[facility] | | | | | | [address] | | | | + + + [...] [place];[address] | | | | | | [address] [facility];[place], [place] | | | | | | [address] | | | | + + + [...] [place] | | | | | | [address] | | | | + + + + + + | Non- | 3.67 (L)Comment: Testing | 3.70 - 5.10 | EXTERNAL | | | Red Blood | performed at [facility];[address] | M/uL | LAB | | | Cells | [address];[place] | | | | | Counted | [address] | | | | + + + + + + | Hemoglobin | 13.0Comment: Testing | 11.3 - 15.5 | EXTERNAL | | | | performed at [facility];[address] | g/dL | LAB | | | | [address];[place] | | | | | | [address] | | | | + + + + + + | Hematocrit, | 38.3Comment: Testing | 34.0 - 46.0 % | EXTERNAL | | | POC | performed at [facility];[address] | | LAB | | | | [address];[place] | | | | | | [address] | | | | + + + + + + | MCV | 104.3 (H)Comment: | 80.0 - 100.0 fl | EXTERNAL | | | | Testing performed at | | LAB | | | | [facility];[address] | | | [address];[place] [address] | | | | + + + + + + | MCH | 35.4 (H)Comment: Testing | 27.0 - 34.0 pg | EXTERNAL | | | | performed at [facility];[address] | | LAB | | | | [address];[place] | | | | | | [address] | | | | + + + + + + | MCHC | 33.9Comment: Testing | 32.0 - 35.5 | EXTERNAL | | | | performed at [facility];888 | g/dL | LAB | | | | [address];[place] | | | | | | [address] | | | | + + + + + + | RDW-CV | 48.1Comment: Testing | 37 - 53 fl | EXTERNAL | | | | performed at [facility];[address] | | LAB | | | | [address];[place] | | | | | | [address] | | | | + + + + + + | Platelet | 157Comment: Testing | 150 - 400 K/uL | EXTERNAL | | | Count | performed at [facility];[address] | | LAB | | | Plasma | [address];[place] | | | | | | [address] | | | | + + + + + + | MPV | 9.3Comment: Testing | fl | EXTERNAL | | | | performed at [facility];[address] | | LAB | | | | [address];[place] | | | | | | [address] | | | | + + + + + + | Differentia | AUTOMATEDComment: | | EXTERNAL | | | l Type | Testing performed at | | LAB | | | | [facility];[address] | | | [address];[place] [address] | | | | + + + + + + | % Segmented | 55.8Comment: Testing | % | EXTERNAL | | | | performed at [facility];[address] | | LAB | | | Neutrophils | [address];[place] | | | | | | [address] | | | | + + + + + + | % | 35.8Comment: Testing | % | EXTERNAL | | | Lymphocytes | performed at [facility];[address] | | LAB | | | | [address];[place] | | | | | | [address] | | | | + + + + + + | % Monocytes | 6.0Comment: Testing | % | EXTERNAL | | | | performed at [facility];[address] | | LAB | | | | [address];[place] | | | | | | [address] | | | | + + + + + + | % | 1.9Comment: Testing | % | EXTERNAL | | | Eosinophils | performed at [facility];[address] | | LAB | | | | [address];[place] | | | | | | [address] | | | | + + + + + + | % Basophils | 0.5Comment: Testing | % | EXTERNAL | | | | performed at [facility];[address] | | LAB | | | | [address];[place] | | | | | | [address] | | | | + + + + + + | Absolute | 2.8Comment: Testing | 1.9 - 7.4 K/uL | EXTERNAL | | | Segmented | performed at [facility];[address] | | LAB | | | Neutrophils | [address];[place] | | | | | | [address] | | | | + + + + + + | Absolute | 1.8Comment: Testing | 1.0 - 3.9 K/uL | EXTERNAL | | | Lymphocytes | performed at [facility];[address] | | LAB | | | | [address];[place] | | | | | | [address] | | | | + + + + + + | Absolute | 0.3Comment: Testing | 0 - 0.8 K/uL | EXTERNAL | | | Monocytes | performed at [facility];[address] | | LAB | | | | [address];[place] | | | | | | [address] | | | | + + + + + + | Absolute | 0.1Comment: Testing | 0 - 0.5 K/uL | EXTERNAL | | | Eosinophils | performed at [facility];[address] | | LAB | | | | [address];[place] | | | | | | [address] | | | | + + + + + + | Absolute | 0.0Comment: Testing | 0 - 0.1 K/uL | EXTERNAL | | | Basophils | performed at [facility];[address] | | LAB | | | | [address];[place] | | | | | | [address] | | | | + + + [...] | LAB | | | | [address];[place], [place] | | | | | | [address] | | | | + + + [...] | LAB | | | | [address];[place], [place] | | | | | | [address] | | | | + + + + + + | K | 3.3 (L)Comment: Testing | 3.5 - 4.9 | EXTERNAL | | | | performed at [facility];888 | mmol/L | LAB | | | | [address];[place] | | | | | | [address] | | | | + + + + + + | Cl | 99Comment: Testing | 99 - 109 mmol/L | EXTERNAL | | | | performed at [facility];[address] | | LAB | | | | [address];[place] | | | | | | [address] | | | | + + + + + + | CO2 | 29Comment: Testing | 23 - 32 mmol/L | EXTERNAL | | | | performed at [facility];[address] | | LAB | | | | [address];[place] | | | | | | [address] | | | | + + + + + + | Anion Gap | 13Comment: Testing | 5 - 20 mmol/L | EXTERNAL | | | | performed at [facility];[address] | | LAB | | | | [address];[place] | | | | | | [address] | | | | + + + + + + | Glucose, | 92Comment: Testing | 65 - 99 mg/dL | EXTERNAL | | | Fasting | performed at [facility];[address] | | LAB | | | | [address];[place] | | | | | | [address] | | | | + + + + + + | BUN | 30 (H)Comment: Testing | 8 - 25 mg/dL | EXTERNAL | | | | performed at [facility];[address] | | LAB | | | | [address];[place] | | | | | | [address] | | | | + + + + + + | Creatinine | 7.21 (H)Comment: Testing | 0.50 - 1.00 | EXTERNAL | | | | performed at [facility];888 | mg/dL | LAB | | | | [address];[place] | | | | | | [address] | | | | + + + + + + | BUN/Creatin | 4Comment: Testing | | EXTERNAL | | | ine Ratio | performed at [facility];[address] | | LAB | | | | [address];[place] | | | | | | [address] | | | | + + + + + + | Calcium | 8.3 (L)Comment: NOTE NEW | 8.5 - 10.5 | EXTERNAL | | | | REFERENCE RANGETesting | mg/dL | LAB | | | | performed at [facility];[address] | | | | | | [address];[place] | | | | | | [address] | | | | + + + [...] [place] | | | | | | [address] | | | | + + + [...]
--- OUTSIDE RECORDS SUMMARY | ~2019-12-21 | XMS | Encounter Summary ---
Demographics + + + | Address | [address] | | | [place] [address] | + + + | Home Phone [...] | | | | | [place] [address] | | + + + + + | Thania Mallory | ECON | [address] | | | | | [place] [address] | | + + + + + | Deidra Weldon | ECON | [address] | | | | | [place] | | | | | [address] | | + + + + + Care Team Providers + +------+ + | Care Interchange Agent Name | Role | Phone | [...] | | | | [address] [place] | [facility] | | | | | [facility], | [place], [place] | | | | | [place] [address] | [address] | | | | | [phone] | | | +--------+ + + + [...] Denise | | | | | | [place], [place] | | | | | | [address] | | | | | | [phone] | | | | | | | | +--------+ + + + + documented as of this encounter Visit Diagnoses Not on filedocumented in this encounter
--- OUTSIDE RECORDS SUMMARY | ~2019-12-21 | XMS | Encounter Summary ---
Demographics + + + | Address | [address] | | | [place] [address] | + + + | Home Phone [...] | Author | [facility] | | | and [place] | + + + | Organization | [facility] | | | and [...] Providers + +------+ + | Care Software Consultant Name | Role | Phone | [...] | | | | | disease) | [address] | [address] | | | | | ([facility]) | [address] | [address] | | | | | Anemia in | [place], [place] | [place], | | | | | ESRD | [address] | [place] [address] | | | | | (end-stage | Phone: | Phone: | | | | | renal | [phone] | [phone] | | | | | disease) | Fax: | Fax: | | | | | ([facility]) | [phone] | [phone] | | | | | Procedures | | | | | | | [place] OFFICE | | | | | | [...] | [address] [place] | disease) ([facility]) | | | | [place], [place] | [place] [address] | (Primary Dx); ESRD | | | | [address] | [phone] | (end stage renal | | | | [phone] | | disease) ([facility]) | [...] Hypertension--from review of her treatment data in [facility], BP appears stable at her current dry [...] Will recheck her iron profile next m [facility]. Plan: 1. Again, I counseled Dara [...] Will recheck her in 2 weeks. CC: [place] Fina Joy MD, [facility], [facility] Electron ically signed by Jorje Camp DO at 03/03/2015 11:12 AM PSTdocumented in this encount er Plan of Treatment Not on filedocumented as of this encounter Visit Diagnoses + + | Diagnosis | + + | Anemia in ESRD (end-stage renal disease) ([facility]) - Primary Anemia in chronic kidney | | disease | + + | ESRD (end stage renal disease) ([facility]) End stage renal disease | + + documented in this encounter"
--- OUTSIDE RECORDS SUMMARY | ~2019-12-21 | XMS | Encounter Summary ---
Demographics + + + | Address | [address] | | | [place] [address] | + + + | Home Phone [...] | | | | | [place] [address] | | + + + + + | Thania Mallory | ECON | [address] | | | | | [place] [address] | | + + + + + | Deidra Weldon | ECON | [address] | | | | | [place] | | | | | [address] | | + + + + + Care Team Providers + +------+ + | Care News Agent Name | Role | Phone | [...] | | | | | [address] [place], | | | | | | [place] [address] | | | +--------+ + + + [...] Denise | | | | | | [place], [place] | | | | | | [address] | | | | | | [phone] | | | | | | | [...] - | [address] | [place] [address] | | | IMMUNOGENETICS/TRANS | [address] [...] - | [address] | [place] [address] | | | IMMUNOGENETICS/TRANS | [address] [...] [facility] - | [address] | [place] [address] | | | IMMUNOGENETICS/TRANS | [address] | | | | [facility] | | | | + + + + + documented in this encounter Visit Diagnoses + + | Diagnosis | + + | End stage renal disease (HCC) End stage renal disease | + + documented in this encounter"
--- OUTSIDE RECORDS SUMMARY | ~2019-12-21 | XMS | Encounter Summary ---
Demographics + + + | Address | [address] | | | [place] [address] | + + + | Home Phone [...] | | | | | [place] [address] | | + + + + + | Thania Mallory | ECON | [address] | | | | | [place] [address] | | + + + + + | Deidra Weldon | ECON | [address] | | | | | [place] | | | | | [address] | | + + + + + Care Team Providers + +------+ + | Care Laundry Housekeeping Aide Name | Role | Phone | [...] | | | [address] | [address] [address] | | | | | [address] [place], | [place], [place] | | | | | [place] [address] | [address] | | | | | [phone] | [phone] | | | | | | | [...] Denise | | | | | | [place], [place] | | | | | | [address] | | | | | | [phone] | | | | | | | | +--------+ + + + + documented as of this encounter Visit Diagnoses Not on filedocumented in this encounter"
--- OUTSIDE RECORDS SUMMARY | ~2019-12-21 | XMS | Encounter Summary ---
Demographics + + + | Address | [address] | | | [place] [address] | + + + | Home Phone [...] | | | | | [place] [address] | | + + + + + | Thania Mallory | ECON | [address] | | | | | [place] [address] | | + + + + + | Deidra Weldon | ECON | [address] | | | | | [place] | | | | | [address] | | + + + + + Care Team Providers + +------+ + | Care Extermination Inspector Name | Role | Phone | [...] [facility] | | | | | [facility] | [place], [place] | | | | | [address] [facility] | [address] | | | | | [place] | | | | | | [facility], | | | | | | [address] [place] [address] | | | | | | [place], [place] | | | | | | [address] | | | | | | [phone] | | | +--------+ + + + [...] Denise | | | | | | [place], [place] | | | | | | [address] | | | | | | [phone] | | | | | | | | +--------+ + + + + documented as of this encounter Visit Diagnoses Not on filedocumented in this encounter"
--- OUTSIDE RECORDS SUMMARY | ~2019-12-21 | XMS | Encounter Summary ---
Demographics + + + | Address | [address] | | | [place] [address] | + + + | Home Phone [...] Team Providers + +------+ + | Care Technician [employer] Name | Role | Phone | [...] + + | 04/18/ | Hospital | [facility] | French Alexandre DO | ESRD needing | | 2020 - | Encounter | [facility] | [address] | dialysis ([facility]) | | | | CARE FLOOR [address] | [place] [address] [place] [address], | (Primary Dx); | | 04/23/ | [address] | [place] [address] | Hypervolemia, | | 2019 | | [place], [place] | [phone] | unspecified | | | | [address] | | hypervolemia type; | | | | [phone] | Daniela Lara MD | Noncompliance with | | | | | [address] | renal dialysis | | | | | [place] [address] | (HCC); | | | | | [phone] | Costochondritis; | | | | | | Recurrent right | | | | | Arash Bonilla MD | pleural effusion; | | | | | [address] | Acute on chronic | | | | | [place] [address] | combined systolic | | | | | [phone] | and diastolic CHF | | | | | | (congestive heart | | | | | | failure) ([facility]); At | | | | | | high risk for | | | | | | electrolyte | | | | | | imbalance; 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 | | | | | | failure ([facility]); ESRD | | | | | | on hemodialysis | | | | | | ([facility]); Hyperkalemia; | | | | | | Anemia in ESRD | | | | | | (end-stage renal | | | | | | disease) ([facility]); | | | | | | Hyperphosphatemia; [...] might be different fr om the original. [facility] Service: Hospitalist Discharge Summary Patient Name: Dara [...] given PRN Dilaudid, PRN Phenergan and PRN [place]. Gradually her symptoms are improved. At home [...] Abnormal ECG Confirmed by Maurice Bowers MD ([id number]) on 04/22/2019 12:26:15 PM Lab Results Component [...] the pleural space is punctured with an 5-Kazakh thoracentesis catheter. Fluid is aspirated w ithout [...] file. Follow up: Jonathan Alonso MD [address] [place] [address] In 2 weeks Discharge Medications New Medications [...] through Care Everywhere.Acetaminophen; Hydrocodone tablets or capsules (Thai)documented in this encounter Medications at Time of [...] | | | | | renal disease) ([facility]) | protocol | | | | | [...] on a Monday, Monday, Monday schedule at [facility] using left upper extremity AV fistula. She used to see Dr. Trent Camp but switched to Dr. Anguiano. She also has combined diastolic/systolic congestive heart failure and was recently hospital ized at [facility] with hypervolemia and right pleural effusion (12/10/18-12/14/18). [...] was completed later after rounds. Dictation software, [employer], was used which may contain error for [...] MD - 0 04/22/2019 12:49 PM PST [facility] Service: Hospitalist Progress Note Hospital [...] also had hyperkalemia, large right pleural effusion. 04/19/20199713-kmqzw-lgtsu thoracentesis done and 1500 mL fluid removed Receiving HD Subjective and overnight events : Complain of right-sided chest pain. Complain of mil d shortness of breath. This morning she did not want to take [place], and asked for Dilaudid. Receiving dialysis currently. [...] 100 mL Intravenous Dialysis - PRN Cliff Duaret MD Continuous Infusions heparin (dialysis) OBJECTIVE Vital [...] Abnormal ECG Confirmed by Maurice Bowers MD ([id number]) on 04/22/2019 12:26:15 PM Comprehensive Metabolic Panel [...] mL/min/1.73m2 No results for input(s): PHART, PO2ART, WVO5OJX, K9KBKTRN, BEART in the last 168 hours. Recent [...] this chart may have been created with [employer] voice recognition software. Occasi onal wrong-word or [...] who follows up with Dr. Addy Alonso, [facility] primary care provider. 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 She is historically non adherent to dialysis/dietary fluid/K/Po4/ Na restriction. She is normally dialyzed on a Monday, Monday, Monday schedule at [facility] using left upper extremity AV fistula. She used to see Dr. Trent Camp but switched to Dr Sujit Anguiano. She also has combined diastolic/systolic congestive heart failure and was recently hospital ized at [facility] with hypervolemia and right pleural effusion(12/10/18-12/14/18). She [...] was completed later after rounds. Dictation software, [employer], was used which may contain error for [...] MD - 0 04/21/2019 10:39 AM PST [facility] Service: Hospitalist Progress Note Hospital [...] also had hyperkalemia, large right pleural effusion. 04/19/20198221-vdado-mbdga thoracentesis done and 1500 mL fluid removed [...] mL/min/1.73m2 No results for input(s): PHART, PO2ART, ERS0XPN, G1HIMPDH, BEART in the last 168 hours. Recent [...] the pleural space is punctured with an 5-Kazakh thoracentesis catheter. Fluid is aspirated w ithout [...] of IV Dilaudid today and adding PRN [place]. Medication changes plan discussed with patient and she is in agreement with current plan of care, questions answered Disposition: Inpatient Code Status: Full Code Part of this record may have been copied from previous notes to maintain continuity of care . Portions of this chart may have been created with [employer] recognition software. Occasi onal wrong-word or sound-alike substitutions may have occurred due to the inherent livingston itations of voice recognition software. Please read the chart carefully and recognize, using context, where these substitutions have occurred. Arash Bonilla MD 04/21/2019 10:39 AM Arash Perez MD - 04/20/2019 11:20 AM PST [facility] Service: Hospitalist Progress Note Hospital [...] also had hyperkalemia, large right pleural effusion. 04/19/20190151-odcpx-vwhty thoracentesis done and 1500 mL fluid removed [...] mg 4 mg Oral Q6H PRN Daniela Lraa MD 4 mg at 04/20/19 1022 ondansetron [...] mL/min/1.73m2 No results for input(s): PHART, PO2ART, CPV0PXH, Y0CJQVTS, BEART in the last 168 hours. Recent [...] the pleural space is punctured with an 5-Kazakh thoracentesis catheter. Fluid is aspirated w ithout [...] this chart may have been created with [employer] voice recognition software. Occasi onal wrong-word or sound-alike substitutions may have occurred due to the inherent livingston itations of voice recognition software. Please read the chart carefully and recognize, using context, where these substitutions have occurred. Arash Bonilla MD 04/20/2019 11:20 AM Arash Perez MD - 04/19/2019 2:47 PM PST [facility] Service: Hospitalist Progress Note Hospital [...] also had hyperkalemia, large right pleural effusion. 04/19/20195000-mhoop-ydexe thoracentesis done and 1500 mL fluid removed [...] FLUID No results for input(s): PHART, PO2ART, OBG1OHG, J3YNHXZA, BEART in the last 168 hours. Recent [...] the pleural space is punctured with an 5-Kazakh thoracentesis catheter. Fluid is aspirated w ithout [...] this chart may have been created with [employer] voice recognition software. Occasi onal wrong-word or [...] on a Monday, Monday, Monday schedule at [facility] using left upper extremity AV fistula. She used to see Dr. Trent Camp but switched to Dr. Anguiano. She also has combined diastolic/systolic congestive heart failure and was recently hospital ized at [facility] with hypervolemia and right pleural effusion(12/10/18-12/14/18). She [...] was completed later after rounds. Dictation software, [employer], was used which may contain error for [...] on a Monday, Monday, Monday schedule at [facility] using left upper extremity AV fistula. She used to see Dr. Trent Camp but switched to Dr. Anguiano. She also has combined diastolic/systolic congestive heart failure and was recently hospital ized at [facility] with hypervolemia and right pleural effusion (12/10/18-12/14/18). [...] was completed later after rounds. Dictation software, [employer], was used which may contain error for [...] Lara MD - 04/18/2019 4:04 PM PST [facility] Service: Hospitalist Admission History & Physical [...] renal disease) (HCC) HSP (Henoch-Schonlein purpura) nephritis ([facility]) 1987 Hypertension Pericardial effusion without cardiac tamponade 11/07/2018 Past Surgical History: Procedure Laterality Date ABDOMEN SURGERY AV FISTULA REPAIR 02/24/2014 LEFT Radical Cephalic Fistula Creation; Laterality: Left; Surgeon: Blake Chavarria MD ; Location: [facility] OR AV FISTULA REPAIR Left 03/07/2014 Procedure: AV FISTULA - GRAFT REPAIR/REVISION; Surgeon: Rik Simon MD; Location: [facility] IN OR; Service: Vascular; Laterality: Left; biopsy of kidney age 10 DIALYSIS FISTULA CREATION 04/08/2014 Procedure: DIALYSIS CATHETER - INSERTION; Surgeon: Rik Simon MD; Location: [facility] MAIN OR ; Service: Vascular; Laterality: N/A; tunneled catheter.br hemodialysis catheter KIDNEY BIOPSY Left 2003 OTHER SURGICAL HISTORY LAPAROSCOPIC PERITONEAL DIALYSIS CATHETER INSERTION - x2 OTHER SURGICAL HISTORY Right 07/2013 LAPAROSCOPIC PERITONEAL DIALYSIS CATHETER INSERTION - current dialysis access MWF dialysis OTHER SURGICAL HISTORY Left 06/24/2014 SUPERFICIALIZATION OF AV FISTULA - Procedure: AV FISTULA - SUPERFICIALIZATION; Surgeon: Emanuel Simon MD; Location: [facility] MAIN OR; Service: Vascular; Laterality: Left; OTHER SURGICAL HISTORY Left 04/08/2014 AV FISTULA PLACEMENT - Procedure: AV FISTULA; Surgeon: Rik Simon MD; Location: [facility] OR; Service: Vascular; Laterality: Left; cephalic OTHER SURGICAL HISTORY Left 03/07/2014 DECLOT GRAFT - Procedure: GRAFT - DECLOT; Surgeon: Rik Simon MD; Location: [facility] MAIN OR ; Service: Vascular; Laterality: [...] on a Monday, Monday, Monday schedule at [facility] using left upper extremity AV fistula. She used to see Dr. Trent Camp but switched to Dr. Anguiano. She also has combined diastolic/systolic congestive heart failure and was recently hospital ized at [facility] with hypervolemia and right pleural effusion (12/10/18-12/14/18). [...] was completed later after rounds. Dictation software, [employer], was used which may contain error for [...] on a Monday, Monday, Monday schedule at [facility] using left upper extremity AV fistula. She used to see Dr. Trent Camp but switched to Dr. Anguiano. She also has combined diastolic/systolic congestive heart failure and was recently hospital ized at [facility] with hypervolemia and right pleural effusion(12/10/18-12/14/18). She [...] was completed later after rounds. Dictation software, [employer], was used which may contain error for [...] Duarte MD - 04/18/2019 4:55 PM PST [id number] LOS: 0 days CHIEF COMPLAINT: I need [...] on a Monday, Monday, Monday schedule at [facility] using left upper extremity AV fistula. She used to see Dr. Trent Camp but has switched to Dr. Anguiano. She also has combined diastolic/systolic congestive heart failure and was recently hospital ized at [facility] with hypervolemia and right pleural effusion (12/10/18-12/14/18). [...] imbalances including hyperkalemia/metabolic a cidosis. Records from [place] reviewed. PMH, PSH, Social history reviewed in [...] the vein Once a week. 09/12/14 Daniela Ibarar MD ondansetron (ZOFRAN) 4 mg tablet Take [...] was completed later after rounds. Dictation software, [employer], was used which may contain error for [...] of 8 PM tonight. documented in this [facility] ED Notes French Alexandre, DO - 04/18/2019 1:49 PM PST [facility] Department of Emergency Medicine 04/18/2019 1:49 PM [...] The pt presented to an ED in [place], [place] recently for her condition but "was [...] vilma t needed to be removed. 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 Past Medical History: Diagnosis Date Asthma Bacteremia due to Gram-positive bacteria 12/12/2018 Clotted dialysis access ([facility]) 2014 Congestive heart failure ([facility]) ESRD (end stage renal disease) ([facility]) HSP (Henoch-Schonlein purpura) nephritis ([facility]) 1987 Hypertension Pericardial effusion without cardiac tamponade 11/07/2018 Past Surgical History: Procedure Laterality Date ABDOMEN SURGERY AV FISTULA REPAIR 02/24/2014 LEFT Radical Cephalic Fistula Creation; Laterality: Left; Surgeon: Blake Chavarria MD ; Location: [facility] MA[facility] OR AV FISTULA REPAIR Left 03/07/2014 Procedure: AV FISTULA - GRAFT REPAIR/REVISION; Surgeon: Rik Simon MD; Location: [facility] IN OR; Service: Vascular; Laterality: Left; biopsy [...] - SUPERFICIALIZATION; Surgeon: Emanuel Simon MD; Location: [facility] MAIN OR; Service: Vascular; Laterality: Left; OTHER SURGICAL HISTORY Left 04/08/2014 AV FISTULA PLACEMENT - Procedure: AV FISTULA; Surgeon: Rik Simon MD; Location: [facility] OR; Service: Vascular; Laterality: Left; cephalic OTHER SURGICAL HISTORY Left 03/07/2014 DECLOT GRAFT - Procedure: GRAFT - DECLOT; Surgeon: Rik Simon MD; Location: [facility] MAIN OR ; Service: Vascular; Laterality: Left; peritoneal catheter GATE WATCH Home Medications Medication Sig albuterol 90 mcg/puff [...] Yes Social History Narrative She lives in [facility]. She does not work. She has [...] end organ damage at this time (acute LA, aortic dissection, acute CVA, eclam psia, etc) [...] Value Ref Range Date/Time Comprehensive Metabolic Panel [[id number]] (Abnormal) Collected: 04/18/191331 Order Status: Completed Specimen: [...] Estimated GFR 6 >60 mL/min/1.73m2 Protime INR [[id number]] Collected: 04/18/191331 Order Status: Completed Specimen: Blood Updated: 04/18/191424 INR 1.2 D-Dimer [[id number]] (Abnormal) Collected: 04/18/191331 Order Status: Completed Specimen: Blood Updated: 04/18/19 1425 D-DIMER 1.37 0.19 - 0.50 mg/L FEU CBC with Differential [[id number]] (Abnormal) Collected: 04/18/191331 Order Status: Completed Specimen: [...] AM Rate: 113 bpm Rhythm: Sinus Tachycardia [place]: Left GONZALO: Normal QRS: Normal, narrow complex [...] recognition system. The possibility of "sound alike" machine set up errors, addition and/or deletions may occur. If [...] 04/18/2019 6:17 PM French Alexandre DO 04/18/19 8969 Cal Gillette RN - 04/18/2019 1:11 PM [...] of 3L of fluid was removed per grape cutter report. End of shift review complete. Toño OSEI lan of Guille Barrientos RN - 04/22/2019 5:38 AM PST Problem: Fall Injury Risk Goal: Absence of Fall and Fall-Related Injury Note: Pt is independent No injuries have occurred. She has been alert and oriented x4, VSS, she has been medicated x2 for pain with [place] and dilaudid IV. No other acute changes [...] PAULINO RN lan of Care - Hannah Lacy RN - 04/20/2019 5:58 AM PSTPt AOx4. [...] is scheduled for dialysis in //Mon at [facility] but misses often, she said "i'm working [...] Needs Assessment Current Outpt/Agency/Support Groups: outpatient hemodialysis (specify)([facility] a///Mon) Community Agency Name: Anticipated Changes Related to Illness: none Concerns to be Addressed: compliance issue concerns(admissions due to missing dialysis) Services Anticipated at Discharge: none, education services Equipment Used at Home: oxygen(states she does not use it often) Equipment Needed after Discharge: Durable Medical Equipment Provider: (In Home Medical) Pharmacy/Medication Needs: ([facility] or [facility], [place]) Transportation Needs: family or friend will provide [...] R?MRN: | | | | | | [id number] | | | [id number] | | | riteri | | | [...] | | | St. | | | [place] | | | y | | | [...] | | | St. | | | [place] | | | y | | | [...] | | | St. | | | [place] | | | y | | | [...] 2020 | | | | | | [place] | | | ED | | | Dispar | | | ity | | | Measur | | | e - | | | [place] | | | has | | | [...] | | | s. | | | [place] | | | | | | Health [...] | | | By: | | | [place] | | | | | | Health [...] | | | St. | | | [place] | | | y | | | [...] | | | St. | | | [place] | | | y H. | | [...] | | | St. | | | [place] | | | y H. | | [...] | | | St. | | | [place] | | | y H. | | [...] | | | St. | | | [place] | | | y H. | | [...] | | | St. | | | [place] | | | y H. | | [...] | | | St. | | | [place] | | | y H. | | [...] | | | [place] | | | Pattern [place] | | | al | | | [...] | | | [place] | | | [place] | | | al | | | [...] | | | MD | | | Pattern Mechanic | | | al | | | [...] | | space is punctured with an 5-Kazakh thoracentesis catheter. Fluid is | | | [...] the pleural space is punctured with an 5-Kazakh | | thoracentesis catheter. Fluid is aspirated [...] 8 (L)Comment: GFR <60: | >60 | [facility] | | | GFR | CHRONIC [...] | | | | | | MDRD IDCA traceable | | | | | | equation.Testing | | | | | | performed at [facility];[address] | | | | | | [facility];[place], [place] | | | | | | [address] | | | | + + + + + + + + | Specimen | + + | Blood | + + + + + + + | Performing | Address | City/State/Zipcode | Phone Number | | Organization | | | | + + + + + | [facility] | [address] | [place] [address] | [phone] | + + + + + ECG [...] | | | | | Maurice ALMEIDA ([id number]) on | | | | | | [...] at | | | | | | [facility];[address] [place] [address] | | | | | | Blvd;[place] [address] | | | | + + + + + + + + | Specimen | + + | Blood | + + + + + + + | Performing | Address | City/State/Zipcode | Phone Number | | Organization | | | | + + + + + | [facility] | [address] | [place] [address] | [phone] | + + + + + Troponin I (04/22/2019 7:55 AM PST) + + + + + + | Component | Value | Ref Range | Performed | Pathologist | | | | | At | Signature | + + + + + + | Troponin I | 0.073 (H)Comment: 0.04 | 0.00 - 0.04 | [facility] | | | | ng/mL or [...] at | | | | | | [facility];[address] [facility] | | | | | | vd;[place] [address] | | | | + + + + + + + + | Specimen | + + | Blood | + + + + + + + | Performing | Address | City/State/Zipcode | Phone Number | | Organization | | | | + + + + + | [facility] | [address] | [place] [address] | [phone] | + + + + + Basic [...] | | | | | performed at [facility];[address] | | | | | | [address];[place] | | | | | | [address] | | | | + + + + + + + + | Specimen | + + | | + + + + + + + | Performing | Address | City/State/Zipcode | Phone Number | | Organization | | | | + + + + + | [facility] | [address] | [place] [address] | [phone] | + + + + + Basic [...] | | | | | performed at [facility] | | | | | | [facility];[place], [place] | | | | | | [address] | | | | + + + + + + + + | Specimen | + + | Blood | + + + + + + + | Performing | Address | City/State/Zipcode | Phone Number | | Organization | | | | + + + + + | [facility] | [address] | [place] [address] | [phone] | + + + + + XR [...] | pleural space is punctured with an 5-Kazakh thoracentesis catheter. | | | Fluid is [...] the pleural space is punctured with an 5-Kazakh | | thoracentesis catheter. Fluid is aspirated without complication. The | | patient tolerated the procedure well. No immediate complications. | | | | Estimated Blood Loss: Minimal. | | | | IMPRESSION: | | Uncomplicated thoracentesis. 1,500 ml of clear yellow fluid was | | removed. | | | | Dictated by: Javon Connell Nicole | | | | Signed by: Eliza Glavan David | | Sign Date/Time: 04/19/2019 3:52 [...] | | | Body Fluid | a rn access validated | | LABORATORY | | | | sample type for this | | | | | | method. No | | | | | | referenceranges have | | | | | | been established.Testing | | | | | | performed at [facility], [address] | | [address], | | | | | | [place] [address] | | | | + + + + + + | SOURCE | THORACENTESIS | | [facility] | | | | FLUIDComment: Testing | | LABORATORY | | | | performed at [facility];[address] | | | | | | [address];[place] | | | | | | [address] | | | | + + + + + + + + | Specimen | + + | Body Fluid | + + + + + + + | Performing | Address | City/State/Zipcode | Phone Number | | Organization | | | | + + + + + | [facility] | [address] | [place] [address] | [phone] | + + + + + Cell [...] | | | Counted | performed at [facility];[address] | | LABORATORY | | | | [address];[place], [place] | | | | | | [address] | | | | + + + + + + + + | Specimen | + + | Body Fluid | + + + + + + + | Performing | Address | City/State/Zipcode | Phone Number | | Organization | | | | + + + + + | [facility] | [address] | [place] [address] | [phone] | + + + + + Lactate dehydrogenase, body fluid (04/19/2019 10:26 AM PST) + + + + + + | Component | Value | Ref Range | Performed | Pathologist | | | | | At | Signature | + + + + + + | Lactate | 98Comment: This is not a | U/L | KR | | | Dehydrogena | rn access validated | | LABORATORY | | | se, Body | sample type for this | | | | | Fluid | method. No | | | | | | referenceranges have | | | | | | been established.Testing | | | | | | performed at [facility], [address] | | | | | [address], | | | | | | [place] [address] | | | | + + + + + + + + | Specimen | + + | Body Fluid | + + + + + + + | Performing | Address | City/State/Zipcode | Phone Number | | Organization | | | | + + + + + | [facility] | [address] | [place] [address] | [phone] | + + + + + Protein, Total (04/19/2019 4:49 AM PST) + + + + + + | Component | Value | Ref Range | Performed | Pathologist | | | | | At | Signature | + + + + + + | Protein, | 6.4Comment: Testing | 6.3 - 8.2 g/dL | [facility] | | | Total | performed at [facility];[address] | | LABORAT[address] | | | | [address];[place] | | | | | | [address] | | | | + + + + + + + + | Specimen | + + | Blood | + + + + + + + | Performing | Address | City/State/Zipcode | Phone Number | | Organization | | | | + + + + + | [facility] | [address] | [place] [address] | [phone] | + + + + + Lactate [...] MISHEL | | | | performed at [facility];[address] | | LABORATORY | | | | [address];[place] | | | | | | [address] | | | | + + + + + + + + | Specimen | + + | Blood | + + + + + + + | Performing | Address | City/State/Zipcode | Phone Number | | Organization | | | | + + + + + | [facility] | [address] | [place] [address] | [phone] | + + + + + CBC [...] | | | Absolute | performed at [facility], [address] | [address] | LABORATORY | | | | [address], | | | | | | [place] [address] | | | | + + + + + + + + | Specimen | + + | Blood | + + + + + + + | Performing | Address | City/State/Zipcode | Phone Number | | Organization | | | | + + + + + | [facility] | [address] | [place] [address] | [phone] | + + + + + Basic [...] | | | | | performed at [facility], [address] | | | | | | [facility], | | | | | | [place] [address] | | | | + + + + + + + + | Specimen | + + | Blood | + + + + + + + | Performing | Address | City/State/Zipcode | Phone Number | | Organization | | | | + + + + + | [facility] | [address] | [place] [address] | [phone] | + + + + + XR [...] | | LABORATORY | | | | [facility], [address] | | | | | | [place] | | | | | | [address] | | | | + + + + + + + + | Specimen | + + | Blood | + + + + + + + | Performing | Address | City/State/Zipcode | Phone Number | | Organization | | | | + + + + + | [facility] | [address] | [place] [address] | [phone] | + + + + + Hepatitis [...] | | | | | performed at [facility], [address] | | | | | | [facility], | | | | | | [place] [address] | | | | + + + + + + + + | Specimen | + + | Blood | + + + + + + + | Performing | Address | City/State/Zipcode | Phone Number | | Organization | | | | + + + + + | [facility] | [address] | [place] [address] | [phone] | + + + + + Hepatitis [...] [place] | | | | | | [address] | | | | + + + + + + + + | Specimen | + + | Blood | + + + + + + + | Performing | Address | City/State/Zipcode | Phone Number | | Organization | | | | + + + + + | [facility] | [address] | [place] [address] | [phone] | + + + + + Phosphorus (04/18/2019 1:32 PM PST) + + + + + + | Component | Value | Ref Range | Performed | Pathologist | | | | | At | Signature | + + + + + + | Phosphorus | 8.4 (H)Comment: Testing | 2.3 - 4.8 mg/dL | [place] | | | | performed at [facility];[address] | | LABORATORY | | | | [address];[place], [place] | | | | | | [address] | | | | + + + + + + + + | Specimen | + + | Blood | + + + + + + + | Performing | Address | City/State/Zipcode | Phone Number | | Organization | | | | + + + + + | [facility] | [address] | [place] [address] | [phone] | + + + + + D-Dimer (04/18/2019 1:32 PM PST) + + + + + + | Component | Value | Ref Range | Performed | Pathologist | | | | | At | Signature | + + + + + + | D-DIMER | 1.37 (H)Comment: D Dimer | 0.19 - 0.50 | [facility] | | | | results less than [...] | | | | | performed at [facility];[address] | | | | | | [facility];[place], [place] | | | | | | [address] | | | | + + + + + + + + | Specimen | + + | Blood | + + + + + + + | Performing | Address | City/State/Zipcode | Phone Number | | Organization | | | | + + + + + | [facility] | [address] | [place] [address] | [phone] | + + + + + Ventura [...] | | | | | performed at [facility] | | | | | | [address];[place], [place] | | | | | | [address] | | | | + + + + + + + + | Specimen | + + | Blood | + + + + + + + | Performing | Address | City/State/Zipcode | Phone Number | | Organization | | | | + + + + + | [facility] | [address] | [place] [address] | [phone] | + + + + + Comprehensive [...] | | | | | performed at [facility];[address] | | | | | | [address] [facility];[place], [place] | | | | | | [address] | | | | + + + + + + + + | Specimen | + + | Blood | + + + + + + + | Performing | Address | City/State/Zipcode | Phone Number | | Organization | | | | + + + + + | [facility] | [address] | [place] [address] | [phone] | + + + + + CBC [...] | | | Absolute | performed at [facility];[address] | [address] | LABORATORY | | | | [place] [address];[place] | | | | | | [address] | | | | + + + + + + + + | Specimen | + + | Blood | + + + + + + + | Performing | Address | City/State/Zipcode | Phone Number | | Organization | | | | + + + + + | [facility] | [address] | [place] [address] | [phone] | + + + + + ECG [...] (500), | | | | | | art editor Parvez Calderón | | | | [...] | | | | | dose on [facility] 04/18/19 at 1800 | | AM PST [...] | | | | DIALYSIS - ONCE, [facility] 04/18/19 at | | | | | [...] PST | | | | | ONCE, [facility] 04/18/19 at 1420, For 1 | | [...] PST | | | | | Starting [facility] 04/18/19 at 1717, | | | | [...] AM PST | | | | | [facility] 04/18/19 at 1800, Do not cut | [...] AM PST | | | | | [facility] 04/18/19 at 1724, Do not cut | [...] - PRN, Hypotension, | | | Starting [facility] 04/18/19 at 1720, | | | Treatment [...] - PRN, Hypotension, | | | Starting [facility] 04/22/19 at 0858, | | | Treatment [...]
--- OUTSIDE RECORDS SUMMARY | ~2019-12-21 | XMS | Encounter Summary ---
Demographics + + + | Address | [address] | | | [place] [address] | + + + | Home Phone [...] | | | | | [place] [address] | | + + + + + | Thania Mallory | ECON | [address] | | | | | [place] [address] | | + + + + + | Deidra Weldon | ECON | [address] | | | | | [place] | | | | | [address] | | + + + + + Care Team Providers + +------+ + | Care Needle Maker Name | Role | Phone | [...] | | | [address] | [facility] | | | | | [address] [place], | [place], [place] | | | | | [place] [address] | [address] | | | | | [phone] | | | +--------+ + + + [...] Denise | | | | | | [place] | | | | | | [address] | | | | | | [phone] | | | | | | | | +--------+ + + + + documented as of this encounter Visit Diagnoses Not on filedocumented in this encounter"
--- OUTSIDE RECORDS SUMMARY | ~2019-12-21 | XMS | Encounter Summary ---
Demographics + + + | Address | [address] | | | [place] [address] | + + + | Home Phone [...] Author | [facility] | | | and [place] | + + + | Organization | [facility] | | [...] Team Providers + +------+ + | Care Platen Press Operator Name | Role | Phone [...] [address] [place] | | | | | [place], [place] | [place] [address] | | | | | [address] | [phone] | | | | | [phone] | | | +--------+--------+ + + + [...]
--- OUTSIDE RECORDS SUMMARY | ~2019-12-21 | XMS | Encounter Summary ---
Demographics + + + | Address | [address] | | | [place] [address] | + + + | Home Phone [...] | | | | | [place] [address] | | + + + + + | Thania Mallory | ECON | [address] | | | | | [place] [address] | | + + + + + | Deidra Weldon | ECON | [address] | | | | | [place] | | | | | [address] | | + + + + + Care Team Providers + +------+ + | Care Tow Truck Operator Name | Role | Phone | [...] | | | | [address] | [address] | clinic check-in) | | | | Dea Jane, Room | [place], [place] | | | | | [address] [place], [place] | [address] | | | | | [address] | | | | | | [phone] | | | +--------+ + + + [...] her outpatient peds renal clinic appt at [facility]. Also present in visit today is pt's [...] to live in her own apartment in [place], [place] with her 22 yo s isStyles. [...] would lik e to move "closer to [place]" due to him wanting to attend school as a diesel locomotive crane operator but they have made no concrete decisions. Patient says her sister is doing well and they are ge tting along; Michelle is working at [employer] where pt's dad works. Patient's education/employment/activities: Dara [...] waiting list per policy of CTS at [facility]. Pt says today that she thinks she [...] been successful in reaching g oal with [employer] campaign. Patient will need to complete a [...] at that time. (mid-July 2016). DORON Ko, ASSISTANT SERVICE MANAGER Pediatric Renal Transplant Commercial Loan Reviewer pg. #[phone] documented in this en counter Plan of Treatment +--------+ + + + + | Date | Type | Specialty | Care Team | Description | +--------+ + + + + | 05/04/ | Hospital | Adult Acute Care | El Starr MD | | | 2022 | Encounter | | [address] | | | | | | [place], [place] | | | | | | [address] | | | | | | [phone] | | | | | | | | +--------+ + + + + documented as of this encounter Visit Diagnoses Not on filedocumented in this encounter
--- OUTSIDE RECORDS SUMMARY | ~2019-12-21 | XMS | Encounter Summary ---
Demographics + + + | Address | [address] | | | [place] [address] | + + + | Home Phone [...] | | | | | [place] [address] | | + + + + + | Thania Mallory | ECON | [address] | | | | | [place] [address] | | + + + + + | Deidra Weldon | ECON | [address] | | | | | [place] | | | | | [address] | | + + + + + Care Team Providers + +------+ + | Care Product Development Intern Name | Role | Phone | [...] Shun | | | | | [address] | [facility] | | | | | [place], [place] | [place] [address] | | | | | [address] | [phone] | | | | | | | [...] from patient and her family Pharmacy Preferences: [id number] [address] [place] [id number] Updated Outpatient Medications: Current Medication List Name [...] questions regarding this information contact pharmacy, pager #[phone] Thank you, Juan David Batres Pager [phone] signed by Juan David Batres, PharmD at [...] Denise | | | | | | [place], [place] | | | | | | [address] | | | | | | [phone] | | | | | | | | +--------+ + + + + documented as of this encounter Visit Diagnoses Not on filedocumented in this encounter"
--- OUTSIDE RECORDS SUMMARY | ~2019-12-21 | XMS | Encounter Summary ---
Demographics + + + | Address | [address] | | | [place] [address] [...] + | Author | [facility] | | | and [place] | + + + | Organization | [facility] | | | [...] Team Providers + +------+ + | Care Bank Vault Clerk Name | Role | Phone | [...] ESRD (end | Sudhakar Castellanos, | Jorje Obrien, DO | | | | | stage renal | MD [address] | [address] | | | | | disease) | [address] | [address] | | | | | (HCC) | [address] | [address] | | | | | Anemia in | [place], [place] | [place], | | | | | ESRD | [address] | [place] [address] | | | | | (end-stage | Phone: | Phone: | | | | | renal | [phone] | [phone] | | | | | disease) | Fax: | Fax: | | | | | ([facility]) | [phone] | [phone] | | | | | Procedures | [...] | (Primary Dx) | | | | [place], [place] | [place] [address] | | | | | [address] | [phone] | | | | | [phone] | | | +--------+ + + + [...] the 02/12/18 encounter (Off-Site Visit) with Jorje Camp, DO Medication Sig Dispense Refill albuterol [...] to fall on the Pars[place], IV? : [place] Fina Alonso MD, PhD documented in thi s encounter Plan of Treatment Not on filedocumented as of this encounter Visit Diagnoses + + | Diagnosis | + + | ESRD (end stage renal disease) (HCC) - Primary End stage renal disease | + + documented in this encounter
--- OUTSIDE RECORDS SUMMARY | ~2019-12-21 | XMS | Encounter Summary ---
Demographics + + + | Address | [address] | | | [place] [address] | + + + | Home Phone [...] + | Author | [facility] | | | and [place] | + + + | Organization | [facility] | | | [...] Providers + +------+ + | Care Bankruptcy Paralegal Name | Role | Phone | + [...] [address] | [place] [address] | | | | | [address] [place] | [phone] | | | | | [address] | | | | | | [phone] | | | +--------+ + + + [...] PDTReferral We received another referral from Dara's [facility] dialysis unit today. However, we had clos [...] I also called the Fina Sparrow social services director, and let her know t kimberly Diamond can be re-referred after she has her marijuana medicinal card. Electronically sig carlos by Roro Myles at 07/03/2018 3:17 PM PDTdocumented in this encounter Plan of Treatment Not on filedocumented as of this encounter Visit Diagnoses Not on filedocumented in this encounter"
--- OUTSIDE RECORDS SUMMARY | ~2019-12-21 | XMS | Encounter Summary ---
Demographics + + + | Address | [address] | | | [place] [address] | + + + | Home Phone [...] | Author | [facility] | | | and [place] | + + + | Organization | [facility] | | | [...] Team Providers + +------+ + | Care Seaman Name | Role | Phone | + [...] + + | 11/22/ | Documentati | [facility] [place] | Daniela Ibarra W, | Dialysis | | 2013 | on | NEPHROLOGY [address] | [address] | (Asymptomatic) | | | | [address] | [address] [place] | | | | | [place], [place] | [facility] [place] [address] | | | | | [address] | [phone] | | | | | [phone] | | | +--------+ + + + [...] this encounter Progress Notes Marilyn Palumbo - 11/29/2013 3:01 PM PDTHemodialysis progress note e-faxed to [facility], Lianna Joy MD, [facility] Renal [facility]plant Clinic on 11/29/13.Electronical ly signed by Marilyn Palumbo at 11/29/2013 3:02 PM Daniela Marquez MD - 11/22/2013 11 :03 AM PDT Comprehensive Dialysis Monthly Note Date of visit: 11/22/2013 [address]: [facility] Mode of dialysis: Hemodialysis Dialysis prescription: MWF, t=4 hrs, Na 138, K 3, BFR 400, EDW 93 kg HPI: Dara Weldon is a 18 y.o. female with ESRD on hemodialysis. Pt reports feeling well. Pt received varicella vaccine. Her dad needs to go in for his bl ood tests for transplant team. No shortness of breath, chest pain, edema. PROBLEM LIST: Patient Active Problem List Diagnosis Date Noted ESRD (end stage renal disease) ([facility]) Priority: High Note Last Updated: 11/22/2013 Due to Henoch-Schonlein purpura. On hemodialysis, started July 2013. Prior, was on peritoneal dialysis, started 2012. Access: R chest catheter. Re-referred to [facility] transplant in Oct 2013 by pediatric care coordinator. Peritonitis, dialysis-associated (HCC) 07/29/2013 Note Last Updated: 07/29/2013 Due to MSSA. Had tunneled infection as well. PD catheter removed in July 2013. On Keflex till 08/01/13. History of Henoch-Schonlein purpura Note Last Updated: 07/29/2013 Diagnosed at age 10[address] Joy, pediatric care coordinator. 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 cinacalcet (SENSIPAR) 30 mg tablet Take 30 mg by mouth Daily. Epoetin Andres (EPOGEN IJ) 3,300 Units by IV Push route Three times a week. Iron Sucrose (VENOFER IV) Inject 50 mg into the vein Once a week. renal multivitamin (DIALYVITE, VOL-CARE) TABS Take 1 tablet by mouth every evening. 90 tablet 4 sevelamer carbonate (RENVELA) 800 mg tablet Take 2,400 mg by mouth 3 times daily (with meals). 3 tablets with meals and 2 tablets with snacks EXAM: T 96.4, HR 65, BP 133/65, weight 95.4 kg, gain 2.1, kg Constitutional: Appears well-developed and well-nourished. No distress. Cardiovascular: Normal rate, regular rhythm and normal heart sounds. No gallop, murmur, or friction rub. No peripheral edema. Lungs: Respiratory effort normal and breath sounds normal. No crackles or wheezes. Abdominal: Soft. Bowel sounds are normal. Neurological: Alert. Dialysis Access: R chest catheter with BFR 425 mL/min. DIALYSIS LABS: Hb 11.8 Na 139, K 4.6, bicarb 26, Cl 102, albumin 3.8, calcium 9.5, phos 3.1, PTH 134 WBC 7.7, PLT 257 eKt/V 1.59, URR 78% ASSESSMENT AND PLAN: 1. ESRD: Dialysis clearance is at goal. 2. Access: R chest catheter. Pt is going on 5 months of dialyzing via chest catheter. Soren lundy pt has not had any infectious complication to date. -per [facility] transplant, AVF is not recommended at this time, as they anticipate transplant within 3 months 3. HTN/volume: Clinic BP is acceptable. Volume status appears stable. EDW 93 kg appears jim ropriate. 4. Anemia due to ESRD: Hb at goal. On ESTEFANY. On maintenance Venofer. 5. Mineral bone disease: Serum calcium and phosphorous levels are at goal. PTH is at goal. -PTH <150; hectorol discontinued -continue sevelamer and cinacalcet for now; may be able to taper off the cinacalcet 6. Acid-base: Serum bicarb is acceptable. 7. Nutrition: Serum albumin is decreased. -Jocelyne will talk with family about availability of high protein food 8. Transplantation: Pt's father, Clayton, is a potential living donor. Pt has been referred to [facility] in Oct [address] Joy. -followed up with [facility] [place] [facility] Lianna Joy, [facility] Pediatric Nephrology [facility] Renal transplant documented in this encounter Plan [...]
--- OUTSIDE RECORDS SUMMARY | ~2019-12-21 | XMS | Encounter Summary ---
Demographics + + + | Address | [address] | | | [place] [address] | + + + | Home Phone [...] Team Providers + +------+ + | Care Incendiary Powder Mixer Name | Role | Phone | + +------+ + PCP | Unavailable | + +------+ + Encounter Details +--------+ + + + + | Date | Type | Department | Care Team | Description | +--------+ + + + + | 07/31/ | Hospital | [facility] | Conversion | ESRD (end stage | | 2015 | Encounter | CENTER CV INTRA OP | Transaction, | renal disease) (HCC) | | | | [address] | Provider Unknown | | | | | [place], [place] | [phone] | | | | | [address] | | | | | | [phone] | Colten Hutchins MD | | | | | | [address] | | | | | | [place], [place] | | | | | | [address] | | | | | | | [...] Progress Notes by Mervat Harden RN at 07/31/14 162 Author: Mervat Harden RN Service: (none) Author Type: Registered Nurse Filed: 07/31/141620 Date of Service: 07/31/141619 Status: Signed Telegraph Operator: Mervat Harden RN (Registered Nurse) Pt meets d/c criteria. Site c/d/i and soft. Mother providing transportation home. Mervat Harden RN onver arturo Transaction, Provider Unknown - 07/31/2014 3:52 PM PDT Progress Notes by Mervat Harden RN at 07/31/141551 Author: Mervat Harden RN Service: (none) Author Type: Registered Nurse Filed: 07/31/14 155 Date of Service: 07/31/141551 Status: Signed Telegraph Operator: Mervat Harden RN (Registered Nurse) Pt tolerated dialysis catheter removal well. Vss. D/c instructions given and discussed pt. States understanding. Will d/c pt. In 30 mins. Mervat Harden RN docume nted in this encounter Procedure Notes Lawrence Hernández NP - 07/31/2014 3:52 PM PDT Procedures by KRISHNA Mariano at 07/31/141551 Author: KRISHNA Mariano Service: Radiology Author Type: Advanced Registered Nurse Practitioner Filed: 07/31/14 303 Date of Service: 07/31/141551 Status: Signed Telegraph Operator: KRISHNA Mariano (Advanced Registered Nurse Practitioner) Pre-procedure Diagnoses: 1. ESRD on hemodialysis (HCC) [585.6, V45.11] Post-procedure Diagnoses: 1. ESRD on hemodialysis (HCC) [585.6, V45.11] Procedures: 1. IR REMOVAL TUNNELED CATHETER [[id number] (Custom)] [facility] Service: Interventional Radiology Tunneled Dialysis Catheter Removal Pre-procedure Diagnosis: ESRD requiring dialysis Post-procedure Diagnosis: Same Procedure(s): Removal of right upper chest dual lumen tunneled dialysis catheter under loc al anesthesia Provider: KRISHNA Mariano Anesthesia: Local anesthesia Estimated Blood Loss: Minimal Other: Not applicable Indications: Patient with functioning left upper arm AV fistula. No longer utilizing tunn eled dialysis catheter as a functioning access, needs removal. Complications: None Condition: Stable See dictated procedural report for full details. KRISHNA Mariano 07/31/2014 3:54 PM documented in th is encounter Consult Notes Lawrence Hernández NP - 07/31/2014 3:54 PM PDT Consult* by KRISHNA Mariano at 07/31/14 4429 Author: KRISHNA Mariano Service: Radiology Author Type: Advanced Registered Nurse Practitioner Filed: 08/01/14 1325 Date of Service: 07/31/14 6044 Status: Signed Telegraph Operator: KRISHNA Mariano (Pamela Registered Nurse Bahman) Vascular & Interventional Radiology Consult Note Patient Name: Dara Weldon Date of : 1995 Requesting Provider: Jorje Camp MD Consulting Provider: KRISHNA Mariano Reason for Referral and Chief Complaint: Evaluation for removal of tunneled dialysis catheter History of Present Illness: Dara Weldon is a 19 y.o. female. IR was asked to see Dara by Dr. Camp for evaluat ion for removal of tunneled dialysis catheter. 19-year-old female with history of hypertens ion and Henoch Schonlein Purpura who receive hemodialysis. Patient had right IJ tunneled cole lysis catheter placed and had replacement done on 05/29/[address] Whaley here at [facility] due to poor function. Patient then had left brachiocephalic AV fistula created by Dr. Simon on 04/08/14. Patient's AV fistula is functioning well and she is no longer utilizing her tunneled d ialysis catheters a functioning access. She was referred here for evaluation for removal of her tunneled dialysis catheter. Hospital Problem List: Patient Active Problem List Diagnosis HSP (Henoch Schonlein purpura) ([facility]) ESRD on hemodialysis ([facility]) Review of Systems: Review of Systems Constitutional: Negative for fever and chills. HENT: Negative for sore throat, trouble swallowing and voice change. Eyes: Negative for pain and visual disturbance. Respiratory: Negative for cough, chest tightness, shortness of breath and wheezing. Cardiovascular: Negative for chest pain and leg swelling. Gastrointestinal: Negative for nausea, vomiting, abdominal pain, diarrhea, blood in stool a nd abdominal distention. Genitourinary: Negative for dysuria, hematuria and difficulty urinating. Musculoskeletal: Negative for back pain, arthralgias, gait problem, neck pain and neck stif fness. Skin: Negative for color change, pallor, rash and wound. Neurological: Negative for dizziness, seizures, syncope, numbness and headaches. Hematological: Does not bruise/bleed easily. All other systems negative. Past Medical History: Past Medical History Diagnosis Date HSP (Henoch-Schonlein purpura) nephritis Hypertension Clotted dialysis access ([facility]) 2014 Past Surgical History: Past Surgical History Procedure Laterality Date Av fistula placement Renal biopsy Laparoscopic peritoneal dialysis catheter insertion x2 Abdominal surgery Av fistula repair Left 03/07/2014 Procedure: AV FISTULA - GRAFT REPAIR/REVISION; Surgeon: Rik Simon MD; Location: [facility] OR; Service: Vascular; Laterality: Left; Declot graft Left 03/07/2014 Procedure: GRAFT - DECLOT; Surgeon: Rik Simon MD; Location: [facility] OR; Service: Va scular; Laterality: Left; Av fistula placement Left 04/08/2014 Procedure: AV FISTULA; Surgeon: Rik Simon MD; Location: [facility] OR; Service: Vascul ar; Laterality: Left; cephalic Dialysis fistula creation N/A 04/08/2014 Procedure: DIALYSIS CATHETER - INSERTION; Surgeon: Rik Simon MD; Location: [facility] R; Service: Vascular; Laterality: N/A; tunneled catheter Laparoscopic peritoneal dialysis catheter insertion Right 07/2013 current dialysis access MWF dialysis Superficialization of av fistula Left 06/24/2014 Procedure: AV FISTULA - SUPERFICIALIZATION; Surgeon: Rik Simon MD; Location: [facility] OR; Service: Vascular; Laterality: Left; Family History: History reviewed. No pertinent family history. Social History: History Social History Marital Status: Single Spouse Name: N/A Number of Children: N/A Years of Education: N/A Social History Main Topics Smoking status: Never Smoker Smokeless tobacco: None Alcohol Use: No Drug Use: No Sexual Activity: None Other Topics Concern None Social History Narrative Medications and Allergies: Current Medications: No prescriptions prior to admission Allergies: Allergies Allergen Reactions Morphine Rash Tape [Adhesive Tape] Rash Use silk tape only Imaging/Procedures: Pertinent Studies and Results Imaging Data: IR dialysis tunneled cath insert [[id number]] Status: Final result Study Result DARA WELDON IR DIALYSIS TUNNELED CATHETER INSERTION 05/29/2014 3:42 PM HISTORY: 19 years. Female. Patient with end-stage renal disease and poorly functioning right upper c hest subclavian central venous tunneled catheter. 585.6. PROCEDURE: 1. Sonography of the lower neck veins. 2. Sonographic guidance for access into the right internal jugular vein. 3. Placement of 19 cm, 14.5-Welsh dual-lumen tunneled palindrome hemodialysis catheter in the right upper chest with its tip in the upper right atrium. MEDICATIONS/RADIATION DOSE: Lidocaine 1% for local anesthesia, Versed 5 mg intravenous, Fentanyl 150 mcg intravenous, A ncef 2 g intravenous. Radiation dose 31 mGy. Fluoroscopy time 0.5 minutes. Intra-procedure s edation time 23 minutes. Appropriate physiologic monitoring, maintenance of adequate conscio us sedation and independent intermediate supervision of the conscious sedation was perfor med throughout the procedure. FINDINGS: 1. Sonography of the lower neck veins revealed widely patent, compressible right internal j ugular vein. 2. Real-time visualization of the needle entry into the right internal jugular vein under s onography was noted. Image documenting the same was obtained and placed in patient records. 3. Upper chest radiograph shows dual-lumen, 14.5-Welsh, 19-cm, tunneled dialysis catheter with its tip in the upper portion of the right atrium. 4. Initial radiograph of the upper chest showed right subclavian tunneled venous catheter w ith its tip in inferior aspect of the right atrium. PROCEDURE: Informed written consent obtained from the patient after explaining the procedure, risks an d alternatives. The patient understood the discussion and expressed a wish to proceed. The appropriate side and site was labeled and initialed as an independent process anteceden t to the imaging and intervention, as per protocol at this institution. The patient was placed supine on the x-ray table. Sonography of the lower neck veins reveal ed widely patent and compressible right jugular vein. Supraclavicular and infraclavicular re gions are prepped in the usual sterile fashion. Skin and subcutaneous tissues then infiltrat ed with 1% lidocaine. Injection of contrast revealed tip of the catheter abutting the inferi or wall of the right atrium. Then, it was decided to perform new tunneled dialysis catheter insertion and removal of the nonfunctioning catheter. Right internal jugular vein was access ed using a micropuncture needle and exchanged for a 4-Welsh micropuncture sheath over a 0.0 18 wire. Skin in the infraclavicular region was infiltrated with 1% lidocaine and a 5-mm ski n incision was made. A 14.5-Welsh, dual-lumen, 19-cm tunneled hemodialysis catheter was sadia caren a subcutaneous tunnel using a metallic tunneler. The 4-Welsh sheath was exchanged for a 0.035, 3-mm J-wire with its tip in the right atrium under fluoroscopy guidance. The skin an d subcutaneous tract was dilated using at 12 and 14-Welsh facial dilators. A 15-Welsh peel -away sheath was placed over the wire with its tip in the upper right atrium. Free end of th e dialysis catheter was placed with its tip in the upper right atrium and sheath was removed . Venotomy site and catheter insertion site closure using purse string suture with 3-0 Vicry l. Dermabond was also applied to insertion and venotomy site. The catheter was secured to th e skin using 2-0 Prolene. Both ports of the catheter aspirated and flushed freely. The radio graph of the upper chest was obtained. One, right subclavian dialysis catheter was removed using sharp and blunt dissection withou t incidence. IMPRESSION: 1. Sonography of the lower neck veins. 2. Successful placement of a 14.5-Welsh dual-lumen 19-cm tunneled hemodialysis catheter wi th its tip in the upper portion of the right atrium without incidence. 00564, 83489, 70622, 67847-62 Physical Examination: Filed Vitals: 07/31/14 1618 BP: 124/58 Pulse: 94 Resp: 16 SpO2: 98% Physical Exam Constitutional: She is oriented to person, place, and time. No distress. HENT: Head: Normocephalic and atraumatic. Mouth/Throat: Oropharynx is clear and moist. No oropharyngeal exudate. Eyes: EOM are normal. Pupils are equal, round, and reactive to light. Right eye exhibits no discharge. Left eye exhibits no discharge. No scleral icterus. Neck: Normal range of motion. Neck supple. No JVD present. Cardiovascular: Normal rate, regular rhythm, normal heart sounds and intact distal pulses. No murmur heard. Pulmonary/Chest: Effort normal and breath sounds normal. Right upper chest tunneled dialysis catheter, site intact. Abdominal: Soft. She exhibits no distension. There is no tenderness. Musculoskeletal: She exhibits no edema. Left upper arm AV fistula, + thrill Neurological: She is alert and oriented to person, place, and time. Skin: Skin is warm and dry. She is not diaphoretic. Psychiatric: She has a normal mood and affect. Her behavior is normal. Vitals reviewed. Consent: Risks, alternatives, potential medical consequences, and benefits of the procedure were dis cussed with the patient. Questions were answered to their satisfaction. Signed and verbal co nsent were given as witnessed by staff. Pre-Procedure Diagnosis: HSP ESRD on hemodialysis Procedure to be performed: Removal of dual lumen tunneled dialysis catheter with local anesthesia Assessment and Plan: 19-year-old female with history of HSP and end-stage renal disease on hemodialysis. Patient has functioning left brachiocephalic AV fistula. She is no longer utilizing her tunneled di alysis catheter as a functioning access, needs removal. Plan is for removal of her tunneled dialysis catheter with local anesthesia. Plan and procedure were discussed with the patient and she verbalized understanding, all of her questions were answered to her satisfaction. Thank you for consulting interventional radiology on this case. Please hesitate to contact us for any questions or concerns. KRISHNA Mariano 08/01/2014 1:24 PM Interventional Radiology documented in th is encounter Plan of [...] this | | | patient in the Mortgage Protection [employer]ist holding area. I had a discussion with [...] met this patient | | in the Mortgage [employer]ist holding area. I had a discussion with [...]
--- OUTSIDE RECORDS SUMMARY | ~2019-12-21 | XMS | Encounter Summary ---
Demographics + + + | Address | [address] | | | [place] [address] | + + + | Home Phone [...] | | | | | [place] [address] | | + + + + + | Thania Mallory | ECON | [address] | | | | | [place] [address] | | + + + + + | Deidra Weldon | ECON | [address] | | | | | [place] | | | | | [address] | | + + + + + Care Team Providers + +------+ + | Care Cable Supervisor Name | Role | Phone | [...] | | | | | [address] [place], | [place], [place] | | | | | [place] [address] | [address] | | | | | [phone] | [phone] | | | | | | | [...] [place] | | | | | | [address] | | | | | | [phone] | | | | | | | | +--------+ + + + + documented as of this encounter Visit Diagnoses Not on filedocumented in this encounter"
--- OUTSIDE RECORDS SUMMARY | ~2019-12-21 | XMS | Encounter Summary ---
Demographics + + + | Address | [address] | | | [place] [address] | + + + | Home Phone [...] | Author | [facility] | | | and [place] | + + + | Organization | [facility] | | | [...] Providers + +------+ + | Care Sales Compensation Analyst Name | Role | Phone | + +------+ + PCP | Unavailable | + +------+ + Encounter Details +--------+ + + + + | Date | Type | Department | Care Team | Description | +--------+ + + + + | 04/28/ | Hospital | [facility] | Nereida Roberson | | | 2008 | Encounter | CONVERSION | MD [address] | | | | [address]PART[address] [place] | [place] [address] | | | | | [place], [place] | [phone] | | | | | [address] | | | | | | [phone] | | | +--------+ + + + [...]
--- OUTSIDE RECORDS SUMMARY | ~2019-12-21 | XMS | Encounter Summary ---
Demographics + + + | Address | [address] | | | [place] [address] | + + + | Home Phone [...] Team Providers + +------+ + | Care Porcelain Mixer Name | Role | Phone | [...] [address] | [place] [address] | | | | | [address] [place] [address] | [phone] | | | | | [address] | | | | | | [phone] | | | +--------+ + + + [...] of this encounter Elodia Logan - 06/13/2018 1:58 PM PDTReferral Called lvm documented in thi s encounter Plan of Treatment Not on filedocumented as of this encounter Visit Diagnoses Not on filedocumented in this encounter"
--- OUTSIDE RECORDS SUMMARY | ~2019-12-21 | XMS | Encounter Summary ---
Demographics + + + | Address | [address] | | | [place] [address] | + + + | Home Phone [...] | Author | [facility] | | | and [place] | + + + | Organization | [facility] | | [...] Team Providers + +------+ + | Care Trench Trimmer Fine Name | Role | Phone | + +------+ + PCP | Unavailable | + +------+ + Encounter Details +--------+ + + + + | Date | Type | Department | Care Team | Description | +--------+ + + + + | 05/14/ | Hospital | [facility] | Michelle Benitez, | | | 2008 | Encounter | HOSPITAL EMERGENCY | MD [address] | | | | | [address] | [place], [place] | | | | | [address] [place], [place] | [address] | | | | | [address] | [phone] | | | | | [phone] | | | +--------+ + + + [...]
--- OUTSIDE RECORDS SUMMARY | ~2019-12-21 | XMS | Encounter Summary ---
Demographics + + + | Address | [address] | | | [place] [address] | + + + | Home Phone [...] | | | | | [place] [address] | | + + + + + | Thania Mallory | ECON | [address] | | | | | [place] [address] | | + + + + + | Deidra Weldon | ECON | [address] | | | | | [place] | | | | | [address] | | + + + + + Care Team Providers + +------+ + | Care Chrome Polisher Name | Role | Phone | + [...] Elias Elizondo | | | | | ([facility]) | [address] | [address] [place], | | | | | Allergic | [place], [place] | [place] | | | | | purpura | [address] | [address] | | | | | ([facility]) | Phone: | Phone: | | | | | | [phone] | [phone] | | | | | | Fax: | Fax: | | | | | | [phone] | [phone] | +--------+--------+ + + + + Encounter Details +--------+ + + + + | Date | Type | Department | Care Team | Description | +--------+ + + + + | 12/20/ | Hospital | Radiology at [facility] | | | | 2012 | Encounter | [address] | | | | | | [place] | | | | | | 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
--- OUTSIDE RECORDS SUMMARY | ~2019-12-21 | XMS | Encounter Summary ---
Demographics + + + | Address | [address] | | | [place] [address] | + + + | Home Phone [...] | | | | | [place] [address] | | + + + + + | Thania Mallory | ECON | [address] | | | | | [place] [address] | | + + + + + | Deidra Weldon | ECON | [address] | | | | | [place] | | | | | [address] | | + + + + + Care Team Providers + +------+ + | Care Bottom Bleacher Name | Role | Phone | + [...] | 02/04/ | Telephone | Clinical | Kesli Martinez, | [facility] | | 2013 | | Transplant Services | RN [address] | | | | | [address] | [facility] | | | | | [address] [place], | [place], [place] | | | | | [place] [address] | [address] | | | | | [phone] | | | +--------+ + + + [...] puts you on antibiotics, you must call [facility] transplant office and let us know about it (do not assume your doctor or dialysis unit has done this!). You will need to send a new PRA to us after each illness/infection. Send a blood sample (PRA) to [facility] every 28 days; if your sample is outdated, you can miss o ut on a kidney. It is your responsibility to keep your own calendar and make certain that [facility] dialysis unit or lab draws this sample on time. If you need a blood transfusion, remind the ordering facility that you are on the transplan t waiting list and they need to use a special white blood cell filter. Stay insured: if your insurance changes, you must call the transplant office with the [facility] ed information. Please check in with your Wait List Coordinator every 9-12 months. Your Coordinator may re commend you call more frequently, depending on how long you have been on the list. Remember , you can call at any time for questions and/or concerns. Reviewed plan for travel/support at the time of transplant. Reviewed current address, phone #'s, dialysis schedule, bale opener, and insurance and req uested they inform us of any changes. elephone Encounter - AlKelsi koo RN - 02/04/2014 9:35 AM PSTReceived phone call from pt stating that pt's pot ential donor was not accepted and pt has no other potential donors over the age of 21 yrs. Pt would like to be listed for donor transplant. Kidney Transplant Listing 1. RN reviewed the following: a. Does patient have 2 ABO s? Yes- one drawn at [facility] and one drawn in [place] with result s canned into Epic b. If patient is on dialysis, do we have Medicare 2728 form showing chronic dialysis start date? Yes, scanned into [facility] on 03/16/2012 c. Does rosebud organ diagnosis match Medicare 2728? Yes. If not, make sure Medicare 2728 diagnosis is denoted on problem list. d. If patient is predialysis, do we have recent labs with MDRD6 calculation form? N/A e. Are signed Informed Consent and LIT Consent forms received and scanned? Yes, scanned in to [facility] on 12/19/2012 f. Are the pharmacy, social [...] 5. Did not review expanded criteria donor (FLY SETTER) with patient due to pediatric recipient sta [...] testing will need to be done at [facility]. 8. Reviewed support plan with patient. 9. Reviewed with patient the steps to listing: Insurance authorization, [employer] paperwork, and new PRA sample. Reviewed with patient that [facility] will call with additional listing informatio n. [...] Denise | | | | | | [place], [place] | | | | | | [address] | | | | | | [phone] | | | | | | | | +--------+ + + + + documented as of this encounter Visit Diagnoses Not on filedocumented in this encounter"
--- OUTSIDE RECORDS SUMMARY | ~2019-12-21 | XMS | Encounter Summary ---
Demographics + + + | Address | [address] | | | [place] [address] | + + + | Home Phone [...] Author | [facility] | | | and [place] | + + + | Organization | [facility] | | [...] Providers + +------+ + | Care Environmental Auditor Name | Role | Phone | [...] [address] | | | | | [place], [place] | [place] [address] | | | | | [address] | [phone] | | | | | [phone] | | | +--------+ + + + [...] encounter Progress Notes Jorje Camp DO - 02/06/2017 11:59 PM PST Subjective: DIALYSIS [...] repeatedly declines. The entire dialysis team including ticket worker have had mult iple conversations with [...] attempt to continue to make efforts to tour counselor her about lifestyle modification an d compliance modification. 2. Again, will continue to offer her counseling or evaluation by psychiatrist. I truly be lieve this would greatly benefit her. 3. I think her current Rx is accurate if she is willing to come to her treatments. 4. Will recheck her in 2 weeks. : [facility] documented in thi s encounter Plan of Treatment Not on filedocumented as of this encounter Visit Diagnoses Not on filedocumented in this encounter"
--- OUTSIDE RECORDS SUMMARY | ~2019-12-21 | XMS | Encounter Summary ---
Demographics + + + | Address | [address] | | | [place] [address] | + + + | Home Phone [...] Providers + +------+ + | Care Lamp Wirer Name | Role | Phone | + [...] + + | 11/06/ | Hospital | [facility] | Johnathan Brooks, | Chronic right-sided | | 2019 - | Encounter | [facility] | MD Brooks TORRES | heart failure (HCC) | | | | CARE FLOOR [address] | [place] [address] | (Primary Dx); Acute | | 11/09/ | | [address] | [phone] | hypoxemic | | 2019 | | [place], [place] | | respiratory failure | | | | [address] | Darell Kowalski MD | (HCC); Chronic | | | | [phone] | [address] | combined systolic | | | | | [place] [address] | and diastolic heart | | | | | [phone] | failure ([facility] | [facility] | | [facility] ([facility]); At | | | | | [...] might be different fr om the original. [facility] Service: Medicine DISCHARGE SUMMARY Primary Care [...] transferred with the patient's paper documentation from [facility]). Initial labs: WBC 6.5, hemoglobin 11.0, [...] suggesting of edema. Taken from Dr. Brooks [facility] (11/06/2018) HOSPITAL COURSE Patient was [...] disease) (HCC) HSP (Henoch-Schonlein purpura) nephritis ([facility]) 1987 Hypertension Pericardial effusion without cardiac tamponade 11/07/2018 Past Surgical History: Procedure Laterality Date ABDOMEN SURGERY AV FISTULA REPAIR 02/24/2014 LEFT Radical Cephalic Fistula Creation; Laterality: Left; Surgeon: Blake Chavarria MD ; Location: [facility] MAIN OR AV FISTULA REPAIR Left 03/07/2014 Procedure: AV FISTULA - GRAFT REPAIR/REVISION; Surgeon: Rik Simon MD; Location: [facility] IN OR; Service: Vascular; Laterality: [...] - SUPERFICIALIZATION; Surgeon: Emanuel Simon MD; Location: [facility] MAIN OR; Service: Vascular; Laterality: Left; OTHER SURGICAL HISTORY Left 04/08/2014 AV FISTULA PLACEMENT - Procedure: AV FISTULA; Surgeon: Rik Simon MD; Location: [facility] N OR; Service: Vascular; Laterality: Left; cephalic OTHER SURGICAL HISTORY Left 03/07/2014 DECLOT GRAFT - Procedure: GRAFT - DECLOT; Surgeon: Rik Simon MD; Location: [facility] MAIN OR ; Service: Vascular; [...] Value Units Date/Time Culture, Body Fluid Sterile [[id number]] Collected: 11/07/18 1515 Order Status: Completed Lab Status: Preliminary result Updated: 11/09/18 141 Specimen: Body Fluid from Pleural Fluid, Right Special Requests RIGHT SIDE Special Requests Testing performed at [facility];[address] [place] [address];[place] [address] Gram Stain Result NO CELLS OR ORGANISMS SEEN RESULT NO GROWTH 2 DAYS RESULT Testing performed at [facility], [address] [place] [address] Comment: Testing performed at [facility], [address] [place] [address], [place] [address] Culture, Body Fluid Sterile [[id number]] Order Status: Canceled Lab Status: No result [...] DIOVAN Follow Up: Jonathan Alonso MD [address] [place] [address] In 1 week René Anguiano MD [address] [place] [address] In 1 week Discharge took 60 minutes, [...] her sister. DME equipment order sent to [place] [facility]. She refused oxygen delivery [...] UF. Hypervolemia has improved with HD/UF/thoracentesis. Acute ME has been ruled out. Recommendations: Plan for [...] for continuity of chart review/care. Dictation software, [employer], was used which may contain error for [...] assume neph[facility] 8 [facility] Yefri Andres, Medical Student - 11/08/2018 1:05 PM PDTFormatting of this note might be different from the [facility] Inpatient Progress Note Pt: Dara Louise AGE/SEX: 23 y.o. ROOM: [facility]/8125- : 1995 PCP: Jonathan Alonso MD PATIENT [...] hypervolemic and has recurrent hyperkalemia/metabolic acidosis. Acute ME has been ruled out. Recommendations: Plan for [...] for continuity of chart review/care. Dictation software, [employer], was used which may contain error for [...] this note might be different from the [facility] Inpatient Progress Note Pt: Dara Louise AGE/SEX: [...] and dyspnea. The patient was seen at [facility] ER and then transferred to our internal [...] might be different f rom the original. [facility] Service: Hospitalist Admission History & Physical [...] transferred with the patient's paper documentation from [facility] ER). Initial labs: WBC 6.5, hemoglobin 11.0, [...] Left; Surgeon: Blake Chavarria MD ; Location: [facility] MAIN OR AV FISTULA REPAIR Left 03/07/2014 Procedure: AV FISTULA - GRAFT REPAIR/REVISION; Surgeon: Rik Simon MD; Location: [facility] OR; Service: Vascular; Laterality: Left; biopsy [...] - SUPERFICIALIZATION; Surgeon: Emanuel Simon MD; Location: [facility] MAIN OR; Service: Vascular; Laterality: Left; OTHER SURGICAL HISTORY Left 04/08/2014 AV FISTULA PLACEMENT - Procedure: AV FISTULA; Surgeon: Rik Simon MD; Location: [facility]; Service: Vascular; Laterality: Left; cephalic OTHER SURGICAL HISTORY Left 03/07/2014 DECLOT GRAFT - Procedure: GRAFT - DECLOT; Surgeon: Rik Simon MD; Location: [facility] MAIN OR ; Service: Vascular; Laterality: Left; peritoneal catheter Prior To admission Meds: Prior to Admission medications Medication Sig Start Date End Date Taking? Authorizing Provider albuterol 90 mcg/puff inhaler Inhale 2 puffs into the lungs every 6 hours as needed for Whe ezing. 09/19/16 Yes Daniela Ibrara MD albuterol 90 mcg/puff inhaler Inhale 2 [...] tablets by mouth 3 times daily (with [facility]). 10/22/18 Gerber Pearson MD sevelamer carbonate [...] who presents as a transfer from outside facility/[facility] ER with the followin. Dyspnea/acute hypoxic respiratory [...] 5000 every 12 hours. 7. I asked nursing staff development coordinator to complete home medication reconciliation. Patient's old records and labs were reviewed in detail and summarized. Code Status: Prior Primary Care Physician: MD Johnathan Thomas MD 11/06/2018 17:16 documented in this encounter Procedure Notes Billie Gupat MD - 11/09/2018 9:34 AM PDTAssociated Order(s): HEMODIALYSIS [facility] Hemo-Dialysis Procedure note Pt is seen [...] current ly . 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 Cardiovascular: [...] HSP . She is dialyzed MWF at [place] using left UE AVF. Primary kitchen operator is Dr. Anguiano. She is historically non adherent to dialysis/dietary fluid/K/Po4 restriction. She also had combined systolic/diastolic CHF with recent hospitalization at [facility] last month for decompensated CHF. She missed [...] effusion. Records from [facility] reviewed in [facility]. Last outpatient HD was Monday. PMH, PSH, [...] as needed for Whe ezing. 09/19/16 Yes Danilea Ibarra MD albuterol-ipratropium 2.5-0.5 mg/3 mL SOLN [...] was completed later after rounds. Dictation software, [employer], was used which may contain error for [...] Outcome: Ongoing, progressing lan of Care - Joycelyn Alfaro RN - 11/08/2018 6:05 PM PDT [...] to or Same As: Previous Discharging Facility: [facility] PCP: Jonathan Alonso MD Contact Information Family Contact Information: Name: Thania Mallory(mother) [place] Needs Assessment Current Outpt/Agency/Support Groups: other (see comments)(dialysis ) Community Agency Name[facility] Anticipated Changes Related to Illness: none Concerns to be Addressed: no discharge needs identified Services Anticipated at Discharge: none Equipment Used at Home: none Pharmacy/Medication Needs: ([facility] [place] ) Transportation Needs: family or friend will provide Initial Plan Anticipated Discharge Disposition: home Notes: pt goes to [facility] for dialysis on . Pt states [...] signed by: Florian Galvan MD 11/07/2018 15:30 Solution Engineer(s): Cheryl WASSERMAN Anesthesia: Local Estimated Blood Loss: [...] PDTPt arrived at facility at [address] [facility]. SBP elevated 150-170's no PRN [...] + | Billie Gupta MD 11/09/2018 9:34 [facility] | | | Center Hemo-Dialysis Procedure note [...] | | . 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 | | | Constitutional: pt [...] Testing | 2.3 - 4.8 mg/dL | [facility] | | | | performed at [facility], [address] | | LABORATORY | | | | [address], | | | | | | [place] [address] | | | | + + + + + + + + | Specimen | + + | Blood | + + + + + + + | Performing | Address | City/State/Zipcode | Phone Number | | Organization | | | | + + + + + | [facility] | [address] | [place] [address] | [phone] | + + + + + Comprehensive [...] | | | | | performed at [facility], [address] | | | | | | [facility], | | | | | | [place] [address] | | | | + + + + + + + + | Specimen | + + | Blood | + + + + + + + | Performing | Address | City/State/Zipcode | Phone Number | | Organization | | | | + + + + + | [facility] | [address] | [place] [address] | [phone] | + + + + + CBC [...] LABORATORY | | | | performed at [facility], [address] | | | | | | [facility], | | | | | | [place] [address] | | | | | | | | | | + + + + + + + + | Specimen | + + | Blood | + + + + + + + | Performing | Address | City/State/Zipcode | Phone Number | | Organization | | | | + + + + + | [facility] | [address] | [place] [address] | [phone] | + + + + + Protime INR (11/09/2018 4:14 AM PDT) + + + + + + | Component | Value | Ref Range | Performed | Pathologist | | | | | At | Signature | + + + + + + | INR | 1.3Comment: REFERENCE | | [facility] | | | | RANGE:0.9 [...] | | | | | performed at [facility];[address] | | | | | | [address];[place] | | | | | | [address] | | | | + + + + + + + + | Specimen | + + | Blood | + + + + + + + | Performing | Address | City/State/Zipcode | Phone Number | | Organization | | | | + + + + + | [facility] | [address] | [place] [address] | [phone] | + + + + + Comprehensive [...] | | | | | performed at [facility], [address] | | | | | | [facility], | | | | | | [place] [address] | | | | + + + + + + + + | Specimen | + + | Blood | + + + + + + + | Performing | Address | City/State/Zipcode | Phone Number | | Organization | | | | + + + + + | [facility] | [address] | [place] [address] | [phone] | + + + + + CBC [...] | | | | | | at [facility], [address] | | | | | | [facility], | | | | | | [place] [address] | | | | | |Testing performed at [facility], [address], [place] [address] | | | | | | | | | | + + +---- + + + + + | Specimen | + + | Blood | + + + + + + + | Performing | Address | City/State/Zipcode | Phone Number | | Organization | | | | + + + + + | [facility] | [address] | [place] [address] | [phone] | + + + + + Protime INR (11/08/2018 4:47 AM PDT) + + + + + + | Component | Value | Ref Range | Performed | Pathologist | | | | | At | Signature | + + + + + + | INR | 1.3Comment: REFERENCE | | [facility] | | | | RANGE:0.9 [...] | | | | | performed at [facility];[address] | | | | | | [address];[place] | | | | | | [address] | | | | + + + + + + + + | Specimen | + + | Blood | + + + + + + + | Performing | Address | City/State/Zipcode | Phone Number | | Organization | | | | + + + + + | [facility] | [address] | [place] [address] | [phone] | + + + + + XR [...] is | | | punctured with an 5-Danish thoracentesis catheter. Fluid is aspirated | | [...] the pleural space is punctured with an 5-Danish | | thoracentesis catheter. Fluid is aspirated [...] LABORATORY | | | | [address];[place] [address] | | | | + + + [...] [place] | | | | | | [address]Cfzqlsg: Testing | | | | | | performed at [facility], [address] | | | | | | [address], [place] | | | | | | [address] | | | | + + + + + + + + | Specimen | + + | Body Fluid - Pleural | | fluid specimen | | (specimen) | + + + + + + + | Performing | Address | City/State/Zipcode | Phone Number | | Organization | | | | + + + + + | [facility] | [address] | [place] [address] | [phone] | + + + + + Protein, Body Fluid (11/07/2018 3:15 PM PDT) + + + + + + | Component | Value | Ref Range | Performed | Pathologist | | | | | At | Signature | + + + + + + | Protein, | 3.4Comment: This is not | g/dL | [facility] | | | Body Fluid | a caser in validated | | LABORATORY | | | | sample type for this | | | | | | method. No | | | | | | referenceranges have | | | | | | been established.Testing | | | | | | performed at [facility], [address] | | | | | [address], | | | | | | [place] [address] | | | | + + + + + + | SOURCE | PLEURAL FLUIDComment: | | [facility] | | | | Testing performed at | | LABORATORY | | | | [facility] [address] | | | | | | [address];[place] [address] | | | | + + + + + + + + | Specimen | + + | Body Fluid | + + + + + + + | Performing | Address | City/State/Zipcode | Phone Number | | Organization | | | | + + + + + | [facility] | [address] | [place] [address] | [phone] | + + + + + Lactate dehydrogenase, body fluid (11/07/2018 3:15 PM PDT) + + + + + + | Component | Value | Ref Range | Performed | Pathologist | | | | | At | Signature | + + + + + + | Lactate | 102Comment: This is not | U/L | [facility] | | | Dehydrogena | a caser in validated | | LABORATORY | | | se, Body | sample type for this | | | | | Fluid | method. No | | | | | | referenceranges have | | | | | | been established.Testing | | | | | | performed at [facility], [address] | | | | | [address] [facility] [facility], | | | | | | [place] [address] | | | | + + + + + + + + | Specimen | + + | Body Fluid | + + + + + + + | Performing | Address | City/State/Zipcode | Phone Number | | Organization | | | | + + + + + | [facility] | [address] | [place] [address] | [phone] | + + + + + Glucose, Body Fluid (11/07/2018 3:15 PM PDT) + + + + + + | Component | Value | Ref Range | Performed | Pathologist | | | | | At | Signature | + + + + + + | Glucose | 96Comment: This is not a | mg/dL | [facility] | | | Fluid | caser in validated | | LABORATORY | | | | sample type for this | | | | | | method. No | | | | | | referenceranges have | | | | | | been established.Testing | | | | | | performed at [facility], [address] | | | | | [address] [facility], | | | | | | [place] [address] | | | | + + + + + + | SOURCE | PLEURAL FLUIDComment: | | [facility] | | | | Testing performed at | | LABORATORY | | | | [facility];[address] | | | | | | [address];[place] [address] | | | | + + + + + + + + | Specimen | + + | Body Fluid | + + + + + + + | Performing | Address | City/State/Zipcode | Phone Number | | Organization | | | | + + + + + | [facility] | [address] | [place] [address] | [phone] | + + + + + Cell [...] + + + | Red Blood | <24483 | /mm3 | [facility] | | | [...] | | | Counted | performed at [facility];[address] | | LABORATORY | | | | [address];[place] | | | | | | [address] | | | | + + + + + + + + | Specimen | + + | Body Fluid | + + + + + + + | Performing | Address | City/State/Zipcode | Phone Number | | Organization | | | | + + + + + | [facility] | [address] | [place] [address] | [phone] | + + + + + Amylase, Body Fluid (11/07/2018 3:15 PM PDT) + + + + + + | Component | Value | Ref Range | Performed | Pathologist | | | | | At | Signature | + + + + + + | Amylase, | 46Comment: This is not a | U/L | [facility] | | | Body Fluid | caser in validated | | LABORATORY | | | | sample type for this | | | | | | method. No | | | | | | referenceranges have | | | | | | been established.Testing | | | | | | performed at [facility], [address] | | | | | | [address] [facility], | | | | | | [place] [address] | | | | + + + + + + + + | Specimen | + + | Body Fluid | + + + + + + + | Performing | Address | City/State/Zipcode | Phone Number | | Organization | | | | + + + + + | [facility] | [address] | [place] [address] | [phone] | + + + + + Albumin, Body Fluid (11/07/2018 3:15 PM PDT) + + + + + + | Component | Value | Ref Range | Performed | Pathologist | | | | | At | Signature | + + + + + + | Albumin, | 2.0Comment: This is not | g/dL | [facility] | | | Fluid | a caser in validated | | LABORATORY | | | | sample type for this | | | | | | method. No | | | | | | referenceranges have | | | | | | been established.Testing | | | | | | performed at [facility], [address] | | | | | | [address] [facility], | | | | | | [place] [address] | | | | + + + + + + + + | Specimen | + + | Body Fluid | + + + + + + + | Performing | Address | City/State/Zipcode | Phone Number | | Organization | | | | + + + + + | [facility] | [address] | [place] [address] | [phone] | + + + + + Medical Cytology (11/07/2018 3:15 PM PDT) + + | Specimen | + + | Body Fluid - Pleural | | fluid specimen | | (specimen) | + + + + + | Narrative | Performed At | + + + | ORDERING | [facility] | | PHYSICIAN:Dex ALMEIDA, Darell U PATIENT NAME:DARA LOUISEENDER: | [facility] | | F : 1995 SPECIMEN(S): A [...] preparation was | | | performed by [facility], [address] [place] [address] | | | [place] [address] (Truck Assembler: Matt Claudio D.O.; CLIA#: | | | [id number]).Professional interpretation was performed by [facility] | | | Diagn[address] | | | [place] [address] (Truck Assembler: Daniel Larson M.D.; CLIA#: | | | [id number]).6 Diagnostician: Enrrique Nichols | | | CT([facility])CytotechnologistDiagnostician: Daniel Larson | | | MDPathologistElectronically Signed 11/13/2018 | | |DESCRIPTION: | | |The preparations contain mesothelial cells, rare inflammatory cells, and acellular proteina ceous material. Atypical cytologic findings are not encountered. | | | | | |SPECIMEN ADEQUACY: | | |Satisfactory for Evaluation | | | | | |PERFORMING LABORATORY: | | |Technical preparation was performed by [facility], [address] [place] [address] [place] [address] (Truck Assembler: Matt Claudio D.O.; CLIA#: [id number]). | | |Professional interpretation was performed by [facility], [facility], [address] [place] [address] (Truck Assembler: Daniel Larson M.D.; CLIA#: [id number]).6 | | | | | |Diagnostician: Enrrique BROOKS([facility]) | | |Bookkeeper | | |Diagnostician: Daniel Larson MD | [...] | | | | | | MARK LAMEIDA (137) on | | | | | [...] (H)Comment: 0.04 | 0.00 - 0.04 | [facility] | | | | ng/mL [...] at | | | | | | [facility];[address] [facility] | | | | | | vd;[place] [address] | | | | + + + + + + + + | Specimen | + + | Blood | + + + + + + + | Performing | Address | City/State/Zipcode | Phone Number | | Organization | | | | + + + + + | [facility] | [address] | [place] [address] | [phone] | + + + + + ECG [...] | | | | | performed at [facility] | | | | | | [address];[place], [place] | | | | | | [address] | | | | + + + + + + + + | Specimen | + + | Blood | + + + + + + + | Performing | Address | City/State/Zipcode | Phone Number | | Organization | | | | + + + + + | [facility] | [address] | [place] [address] | [phone] | + + + + + Platelet Count (11/07/2018 4:03 AM PDT) + + + + + + | Component | Value | Ref Range | Performed | Pathologist | | | | | At | Signature | + + + + + + | Platelet | 185Comment: Testing | 150 - 400 K/uL | [facility] | | | Count | performed at [facility], [address] | | LABORATORY | | | | [address], | | | | | | [place] [address] | | | | + + + + + + + + | Specimen | + + | Blood | + + + + + + + | Performing | Address | City/State/Zipcode | Phone Number | | Organization | | | | + + + + + | [facility] | [address] [facility] | [place] [address] | [phone] | + + + + + PTT (11/07/2018 4:03 AM PDT) + + + + + + | Component | Value | Ref Range | Performed | Pathologist | | | | | At | Signature | + + + + + + | PTT | 27Comment: Testing | 23 - 32 seconds | [facility] | | | | performed at [facility];[address] | | LABORATORY | | | | [address];[place], [place] | | | | | | [address] | | | | + + + + + + + + | Specimen | + + | Blood | + + + + + + + | Performing | Address | City/State/Zipcode | Phone Number | | Organization | | | | + + + + + | [facility] | [address] | [place] [address] | [phone] | + + + + + Lactate Dehydrogenase (11/07/2018 4:03 AM PDT) + + + + + + | Component | Value | Ref Range | Performed | Pathologist | | | | | At | Signature | + + + + + + | LDH TOTAL | 202Comment: Testing | 120 - 246 U/L | [facility] | | | | performed at [facility];[address] | | LABORATORY | | | | [address];[place] | | | | | | [address] | | | | + + + + + + + + | Specimen | + + | Blood | + + + + + + + | Performing | Address | City/State/Zipcode | Phone Number | | Organization | | | | + + + + + | [facility] | [address] | [place] [address] | [phone] | + + + + + Magnesium (11/07/2018 4:03 AM PDT) + + + + + + | Component | Value | Ref Range | Performed | Pathologist | | | | | At | Signature | + + + + + + | Magnesium | 2.3Comment: Testing | 1.7 - 2.4 mg/dL | [facility] | | | | performed at [facility];[address] | | LABORATORY | | | | [address];[place], [place] | | | | | | [address] | | | | + + + + + + + + | Specimen | + + | Blood | + + + + + + + | Performing | Address | City/State/Zipcode | Phone Number | | Organization | | | | + + + + + | [facility] | [address] | [place] [address] | [phone] | + + + + + Comprehensive [...] | | | | | performed at [facility], [address] | | | | | | [address], | | | | | | [place] [address] | | | | + + + + + + + + | Specimen | + + | Blood | + + + + + + + | Performing | Address | City/State/Zipcode | Phone Number | | Organization | | | | + + + + + | [facility] | [address] | [place] [address] | [phone] | + + + + + Troponin [...] at | | | | | | [facility];[address] [facility] | | | | | | [address]vd;[place] [address] | | | | + + + + + + + + | Specimen | + + | Blood | + + + + + + + | Performing | Address | City/State/Zipcode | Phone Number | | Organization | | | | + + + + + | [facility] | [address] | [place] [address] | [phone] | + + + + + Protime [...] | | | | | performed at [facility] [facility];[address] | | | | | | [address];[place], [place] | | | | | | [address] | | | | + + + + + + + + | Specimen | + + | Blood | + + + + + + + | Performing | Address | City/State/Zipcode | Phone Number | | Organization | | | | + + + + + | [facility] | [address] | [place] [address] | [phone] | + + + + + ECHO [...] at | | | | | | [facility];[address] [place] [address] | | | | | | [facility];[place] [address] | | | | + + + + + + + + | Specimen | + + | Blood | + + + + + + + | Performing | Address | City/State/Zipcode | Phone Number | | Organization | | | | + + + + + | [facility] | [address] | [place] [address] | [phone] | + + + + + Magnesium (11/06/2018 3:57 PM PDT) + + + + + + | Component | Value | Ref Range | Performed | Pathologist | | | | | At | Signature | + + + + + + | Magnesium | 2.4Comment: Testing | 1.7 - 2.4 mg/dL | [facility] | | | | performed at [facility], [address] | | LABORATORY | | | | [address], | | | | | | [place] [address] | | | | + + + + + + + + | Specimen | + + | Blood | + + + + + + + | Performing | Address | City/State/Zipcode | Phone Number | | Organization | | | | + + + + + | [facility] | [address] | [place] [address] | [phone] | + + + + + documented in this encounter Visit Diagnoses + + | Diagnosis | + + | Pulmonary edema with congestive heart failure with reduced left ventricular function | | ([facility]) - Primary Congestive heart failure, unspecified | + + | Acute hypoxemic respiratory failure (HCC) | + + | Chronic combined systolic and diastolic heart failure ([facility]) Chronic combined systolic | | and diastolic [...]
--- OUTSIDE RECORDS SUMMARY | ~2019-12-21 | XMS | Encounter Summary ---
Demographics + + + | Address | [address] | | | [place] [address] | + + + | Home Phone [...] | [facility] | | | and [place] | + + + | Organization | [facility] | | [...] Team Providers + +------+ + | Care Fusing Machine Operator Name | Role | Phone [...] | | | | [address]) End | [place], [place] | [place], | | | | | stage renal | [address] | [place] [address] | | | | | disease | Phone: | Phone: | | | | | ([facility]) | [phone] | [phone] | | | | | Infection | Fax: | Fax: | | | | | and | [phone] | [phone] | | | | | inflammatory | [...] DO [address] | renal disease) ([facility]) | | | | [address] | [address] [place] | (Primary Dx) | | | | [place], [place] | [place] [address] | | | | | [address] | [phone] | | | | | [phone] | | | +--------+ + + + [...] encounter Progress Notes Jorje Camp DO - 10/27/2014 3:54 PM PDT Subjective: DIALYSIS [...] 10/27/14 encounter (Off-Site Visit) with Camille Camp, DO Medication Sig Dispense Refill albuterol 90 mcg/puff inhaler Inhale 2 puffs into the lungs every 6 hours as needed for Wheezing. 1 Inhaler 11 cinacalcet (SENSIPAR) 90 MG tablet Take 1 tablet by mouth Daily (with dinner). 90 table t 4 doxercalciferol (HECTOROL) 2 mcg/mL injection Inject 1 mL into the vein Three times a w [place]. epoetin jenna (EPOGEN, PROCRIT) 10,000 units/mL injection [...] #30, with no refill. 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 3. Heat, Daniel Denny, OTC, and tramadol, short term for her back. 4. Will recheck her in 1 week. CC: [place] Fina Joy MD, [facility], [facility] signed by Jorje Camp DO at 10/27/2014 4:32 PM PDTdocumented in this encount er Plan of Treatment Not on filedocumented as of this encounter Visit Diagnoses + + | Diagnosis | + + | ESRD (end stage renal disease) (HCC) - Primary End stage renal disease | + + documented in this encounter
--- OUTSIDE RECORDS SUMMARY | ~2019-12-21 | XMS | Encounter Summary ---
Demographics + + + | Address | [address] | | | [place] [address] | + + + | Home Phone [...] Author | [facility] | | | and [place] | + + + | Organization | [facility] | | [...] Providers + +------+ + | Care Underground Miner Name | Role | Phone | + +------+ + PCP | Unavailable | + +------+ + Encounter Details +--------+ + + + + | Date | Type | Department | Care Team | Description | +--------+ + + + + | 05/29/ | Hospital | [facility] | Conversion | End stage renal | | 2015 | Encounter | CENTER CV INTRA OP | Transaction, | disease (HCC) | | | | [address] | Provider Unknown | | | | | [place], [place] | [phone] | | | | | [address] | | | | | | [phone] | Darryn Whaley, | | | | | | [address] | | | | | | [place], [place] | | | | | | [address] | | | | | | | [...] EXTERNAL LAB | | Testing performed at [facility];[address] [place] [address];[place] [address] MRSA PCR | | | NEGATIVE Testing performed at | | | [address];[place] [address] | | + + + + +---------+ [...]
--- OUTSIDE RECORDS SUMMARY | ~2019-12-21 | XMS | Encounter Summary ---
Demographics + + + | Address | [address] | | | [place] [address] | + + + | Home Phone [...] | [facility] | | | and [place] | + + + | Organization | Located [facility] | | [...] + +------+ + | Care Manager Of Housekeeping Name | Role | Phone | + [...] | | | | | | | [place] | | | | | | [...] + + | 02/24/ | Anesthesia | [facility] | Celso Dacosta | Obesity (BMI | | 2013 | Event | MED CTR OR INTRA OP | MD Douglas [address] | 30.0-34.9) (Primary | | | | [address] | [place] | Dx) | | | | [place] | [address] | | | | | [address] | | | | | | [phone] | | | +--------+ + + + [...] +----+---+ + + | | 0 | Homer | | | | 7 | 43-degrees [...] +----+---+ + + | | 1 | Homer off | | | | 0 | [...] by | | ONLY] | term use; 02/24/14; 1219 | Taylor Worthy RN | Tawanna Fernandez RN | | [...] | [READ | (present upon arrival to [facility]); | 02/24/14 1045 by | 05/28/18 164 by | | ONLY] | arteriovenous fistula; [...] | [READ | (present upon arrival to [facility]); | 02/24/14 1049 by | 05/28/18 1643 [...] + + documented as of this encounter [place] Notes Anesthesia Postprocedure Evaluation - Celso Dacosta MD - 02/24/2014 11:01 AM PSTForma tting of this note might be different from the original. ANESTHESIA POSTANESTHESIA EVALUATION Dara Weldon 18 y.o. female 1995 [id number] Procedure: Procedure(s):LEFT Radical Cephalic Fistula Creation Filed Vitals: 02/24/14 1055 02/24/14 1100 02/24/14 1105 BP: 114/65 130/80 123/74 Pulse: 106 104 109 Temp: Resp: SpO2: 92% 92% 92% Cooperates? Yes Mental Status Performs simple tasks. Respiratory Satisfactory - Airway patent (self maintained). Cardiovascular Satisfactory Blood pressure and heart rate acceptable Temperature Satisfactory Pain Satisfactory N/V Control Satisfactory Hydration Satisfactory No signs of dehydration Complications None apparent Electronically signed by Celso Dacosta MD 02/24/2014 11:11 [facility] nesthesia Preproc edure Evaluation - Celso Dacosta MD - 02/24/2014 7:05 AM PSTFormatting of this note m ight be different from the original. ANESTHESIA PREANESTHESIA EVALUATION Dara Weldon 18 y.o. female 1995 [id number] Scheduled procedure INSERTION AV FISTULA [1201] - LEFT RADICAL CEPHALIC FISTULA CREATION Medical history, anesthesia, medications, allergy histories reviewed. Labs reviewed. ROS / Med History Ane (-) PONV, difficult intubation, malignant hyperthermia . NPO status verified. CV (-) hypertension, CAD, past PA, CHF, congenital heart disease, pulmonary hypertension, pace maker, AICD, angina, echocardiogram, AAA. (-) dysrhythmias (-) valvular disease (-) PVD Ex ercise tolerance >4 METS. Pulm Negative except where noted below. No acute pulmonary concerns. (-) shortness of breath, recent URI, pneumonia, asthma, COPD, sleep apnea, active smoking, no supplemental home oxygen. Neuro Negative except where noted below. (-) seizures, neuromuscular disease, TIA, CVA, headaches, scoliosis, neuropathy, back pain, weakness, numbness/tingling, chronic pain. Psych Negative except where noted below. (-) anxiety, depression, substance abuse, developmental delays, dementia/delirium, bipolar disorder, schizophrenia, post-traumatic stress disorder. Renal Negative except where noted below. (+) end-stage renal disease. (-) renal/ureteral stones, pyelonephritis, chronic renal insufficiency, acute renal failure GI/Hep Negative except where noted below. (-) reflux/GERD, hypercholesterolemia, hiatal hernia. (-) hepatitis. Endo Negative except where noted below. (-) corticosteroid therapy, hypothyroidism, hyperthyroidism, goiter. (-) Diabetes.(+) obesi ty: BMI (30-39). Other Negative except where noted below. (-) anemia, thrombocytopenia, autoimmune disease, arthritis, coagulopathy. Cancer Negative except where noted below. (-) breast cancer, bladder cancer, colon cancer, lung cancer, prostate cancer. Physical Exam Airway MP II, TM >3 FB, Mouth opening >2 FB. Neck: full ROM, extends >30 degrees. Jaw protrus ion normal. Dental Grossly normal except where noted below.; (+) Age appropriate dentition. CV Rhythm regular. Rate Normal. (-) murmur, carotid bruit, peripheral edema, JVD and weak pulses. Pulm Clear to auscultation bilaterally. (-) wheezing, rhonchi, decreased breath sounds, rales and stridor. Neuro Grossly normal. Anesthesia Plan ASA 3 Type: General. Induction: Intravenous. Potential problems: None anticipated. Monitors: Standard ASA monitors. Consent statement:Anesthetic plan, alternatives, risks and benefits discussed with patient and family. Risks discussed included (but were not limited to): dental injury, pain, sore throat, infec tion, voice injury, muscle aches, nausea, respiratory events, . Consenting person understands and agrees to proceed. Risks and benefits of general anesthetic discussed with patient and available family member s. They agree to proceed, answered all questions.. Electronically Signed by: Celso Dacosta MD ESig date/time: 02/24/2014 7:05 documented in this encounter Plan of Treatment [...] | | | | | PRN, Starting Mon02/24/14 at | | AM PST | | | | | 0750, Anesthesia Intra-op | | | | | | + +-------+ +-------+---+---+ +---+---+ | | | +---+---+ + +-------+ +---------+---+---+ | ePHEDrine 50 mg/mL injection | Given | 02/25/20 | 6.25 mg | | | | PRN, Starting Mon02/24/14 at | | 14 8:34 | | [...]
--- OUTSIDE RECORDS SUMMARY | ~2019-12-21 | XMS | Encounter Summary ---
Demographics + + + | Address | [address] | | | [place] [address] | + + + | Home Phone [...] | | | | | [place] [address] | | + + + + + | Thania Mallory | ECON | [address] | | | | | [place] [address] | | + + + + + | Deidra Weldon | ECON | [address] | | | | | [place] | | | | | [address] | | + + + + + Care Team Providers + +------+ + | Care Family And Divorce Legal Assistant Name | Role | Phone | [...] | Nephrology at | MD Emanuel [address] | | | | | [place] | [facility] | | | | | [facility] | [place], [place] | | | | | [address] | [address] | | | | | [place] | [phone] | | | | | [facility], | | | | | | [address] [place] [address] | | | | | | [place], [place] | | | | | | [address] | | | | | | [phone] | | | +--------+ + + + [...] Denise | | | | | | [place], [place] | | | | | | [address] | | | | | | [phone] | | | | | | | [...]
--- OUTSIDE RECORDS SUMMARY | ~2019-12-21 | XMS | Encounter Summary ---
Demographics + + + | Address | [address] | | | [place] [address] | + + + | Home Phone [...] Team Providers + +------+ + | Care Portfolio Architect Name | Role | Phone | + +------+ + PCP | Unavailable | + +------+ + Encounter Details +--------+ + + + + | Date | Type | Department | Care Team | Description | +--------+ + + + + | 08/12/ | Hospital | [facility] | Conversion | ESRD (end stage | | 2016 | Encounter | CENTER CV INTRA OP | Transaction, | renal disease) | | | | [address] | Provider Unknown | ([facility]); ESRD on | | | | [place], [place] | [phone] | hemodialysis ([facility]) | | | | [address] | | | | | | [phone] | Doyle Diaz MD | | | | | | [address] | | | | | | [place], [place] | | | | | | [address] | | | | | | | [...] 08/13/151114 Date of Service: 08/13/151114 Status: Signed Health Program Specialist: Taylor Acuna RN (Registered Nurse) Pt discharged home with family. VSS. Taylor Acuna RN docume nted in this encounter H&P Notes Doyle Diaz MD - 08/13/2015 7:40 AM PDT H&P by Dyole Diaz MD at 08/13/15739 Author: Doyle Diaz MD Service: Interventional Radiology Author Type: Physician Filed: 08/13/15 0742 Date of Service: 08/13/15739 Status: Signed Health Program Specialist: Doyle Diaz MD (Physician) Interventional Radiology H&P Patient Name: Dara Weldon Date of : 1995 History of Present Illness: Patient is a 20 y.o. female with history of ESRD on hemodialysis via a left arm AVF who pre sents with clotted access. Patient receives HD MWF and went to HD yesterday and was found to have a clotted access. Last HD 08/10/2015. Hospital Problem List: Patient Active Problem List Diagnosis HSP (Henoch Schonlein purpura) ([facility]) ESRD on hemodialysis ([facility]) Review of Systems: Negative except HPI Code Status: Prior Past Medical History: Past Medical History Diagnosis Date HSP (Henoch-Schonlein purpura) nephritis Hypertension Clotted dialysis access ([facility]) 2014 ESRD (end stage renal disease) ([facility]) Anemia Past Surgical History: Past Surgical History Procedure Laterality Date Av fistula placement Renal biopsy Laparoscopic peritoneal dialysis catheter insertion x2 Abdominal surgery Av fistula repair Left 03/07/2014 Procedure: AV FISTULA - GRAFT REPAIR/REVISION; Surgeon: Rik Simon MD; Location: [facility]; Service: Vascular; Laterality: Left; Declot graft Left 03/07/2014 Procedure: GRAFT - DECLOT; Surgeon: Rik Simon MD; Location: [facility]; Service: Va scular; Laterality: Left; Av fistula placement Left 04/08/2014 Procedure: AV FISTULA; Surgeon: Rik Simon MD; Location: [facility] OR; Service: Vascul ar; Laterality: Left; cephalic Dialysis fistula creation N/A 04/08/2014 Procedure: DIALYSIS CATHETER - INSERTION; Surgeon: Rik Simon MD; Location: [facility]; Service: Vascular; Laterality: N/A; tunneled catheter Laparoscopic peritoneal dialysis catheter insertion Right 07/2013 current dialysis access MWF dialysis Superficialization of av fistula Left 06/24/2014 Procedure: AV FISTULA - SUPERFICIALIZATION; Surgeon: Rik Simon MD; Location: [facility] OR; Service: Vascular; Laterality: Left; Family History: No family history on file. Social History: History Social History Marital Status: Single Spouse Name: N/A Number of Children: N/A Years of Education: N/A Social History Main Topics Smoking status: Current Every Day Smoker -- 0.50 packs/day for .5 years Smokeless tobacco: Not on file Alcohol Use: No Drug Use: No Sexual Activity: Not on file Other Topics Concern Not on file Social History Narrative Medications and Allergies: Current Medications: lidocaine 10 mL Intradermal Once Prescriptions prior to admission Medication Sig Dispense Refill Last Dose cinacalcet (SENSIPAR) 30 MG tablet Take 60 mg by mouth daily. 10/30/2014 at Unknown ti me sevelamer (RENVELA) 800 MG tablet Take 800 mg by mouth 3 (three) times daily with meals . 10/30/2014 at Unknown time traMADol (ULTRAM) 50 MG tablet Take 50 mg by mouth every 12 (twelve) hours as needed fo r Pain. 10/30/2014 at Unknown time Allergies: Allergies Allergen Reactions Fentanyl Itching Morphine Rash Tape [Adhesive Tape] Rash Use silk tape only Labs: No visits with results within 1 Day(s) from this visit. Latest known visit with results is: Admission on 10/28/2014, Discharged on 10/28/2014 Component Date Value Ref Range Status SODIUM 10/28/2014 138 135 - 143 mmol/L Final POTASSIUM 10/28/2014 3.9 3.5 - 4.9 mmol/L Final CHLORIDE 10/28/2014 97* 99 - 109 mmol/L Final CO2 10/28/2014 34* 23 - 32 mmol/L Final ANION GAP AGAP 10/28/2014 12 5 - 20 mmol/L Final GLUCOSE 10/28/2014 87 65 - 99 mg/dL Final BUN 10/28/2014 23 8 - 25 mg/dL Final CREATININE 10/28/2014 6.4* 0.50 - 1.00 mg/dL Final BUN/CREAT 10/28/2014 4 Final CALCIUM 10/28/2014 9.5 8.5 - 10.5 mg/dL Final EGFR 10/28/2014 CALCULATION NOT PERFORMED. RESULT NOT VALID IF AGE LT 20 YEARS. >60 m L/min/1.73m2 Final WBC 10/28/2014 6.76 3.80 - 11.00 K/uL Final RBC 10/28/2014 3.88 3.70 - 5.10 M/uL Final HGB 10/28/2014 14.1 11.3 - 15.5 g/dL Final HCT 10/28/2014 41.4 34.0 - 46.0 % Final MCV 10/28/2014 106.7* 80.0 - 100.0 fl Final MCH 10/28/2014 36.4* 27.0 - 34.0 pg Final MCHC 10/28/2014 34.1 32.0 - 35.5 g/dL Final RDW SD 10/28/2014 54.7* 37 - 53 fl Final PLT 10/28/2014 168 150 - 400 K/uL Final MPV 10/28/2014 9.1 Final INR 10/28/2014 1.0 Final ] Imaging/Procedures: No results found. Physical Examination: There were no vitals filed for this visit. APPEARANCE: AAO X 3 HEENT: Normal LUNGS: Clear to auscultation and percussion; CV: Heart sounds are normal. Regular rate and rhythm without murmur, gallop or rub. ABD: soft, non-tender, without masses or organomegaly EXT: Faint thrill in LUE NEURO: normal without focal findings, mental status, speech normal, alert and oriented x3, POOJA and reflexes normal and symmetric Plan for Sedation: Moderate sedation Moderate Sedation Presedation Assessment completed. ASA Classification: ASA 2: Patient with a mild systemic disease Mallampati Classification: I: Full visibility of tonsils, uvula and soft palate Consent: Risks, alternatives, and benefits of the procedure were discussed with the patient. All que stions were answered and addressed. Signed and verbal consent were given as witnessed by sta ff. Procedure to be performed: Left arm AVF venogram; possible intervention Dr. Doyle Diaz MD Vascular and Interventional Radiology documente d in this encounter Miscellaneous Notes Op Note - Doyle Diaz MD - 08/13/2015 10:23 AM PDTFormatting of this note might be diffe rent from the original. Brief Op Note by Doyle Diaz MD at 08/13/15 1023 Author: Doyle Diaz MD Service: Interventional Radiology Author Type: Physician Filed: 08/13/15 1026 Date of Service: 08/13/15 1023 Status: Signed Health Program Specialist: Doyle Diaz MD (Physician) Interventional Radiology Post Procedure Note Patient Name: Dara Weldon Date of : 1995 Pre OP Diagnosis: Clotted left arm AVF Post OP Diagnosis: Poor flow of left arm AVF Procedure: Left arm AVF venogram; balloon angioplasty Interventional Radiologist: Doyle Diaz MD Ornithology Teacher: None Anesthesia Type: Moderate sedation Findings: High-grade in-stent stenosis at juxta-anastomotic venous outflow. Moderate stenosis of veno us outflow in mid upper arm. Angioplasty of juxta-anastomotic in-stent stenosis using 6 mm balloon. Angioplasty of venou s outflow in mid upper arm with 8 mm and 10 mm balloons. Post-angioplasty AVF venogram demonstrates a patent outflow without significant residual st enosis. EBL: Minimal Complications: None PLAN: F/U in [address] Doyle Diaz MD Vascular and Interventional Radiology documente d in this encounter Plan of Treatment Not [...] ANGIOPLASTY AV FISTULA VENOUS | | | STRUCTURAL MANAGER: Doyle Diaz MD CONSENT: The risks, benefits [...] guidewire combination, a 4 | | | Hungarian angled catheter was advanced and positioned into [...] a | | | guidewire, a 6 Hungarian sheath was advanced and positioned into the [...] a | | | guidewire, a 7 Hungarian sheath was advanced and positioned into the [...] IR ANGIOPLASTY | | AV FISTULA VENOUS STRUCTURAL MANAGER: Doyle Diaz MD CONSENT: The risks, benefits [...] catheter guidewire combination, a | | 4 Hungarian angled catheter was advanced and positioned into [...] | | ANGIOPLASTY:Over a guidewire, a 6 Hungarian sheath was advanced and positioned into the [...] Over | | a guidewire, a 7 Hungarian sheath was advanced and positioned into the [...] ANGIOPLASTY AV FISTULA VENOUS | | | STRUCTURAL MANAGER: Doyle Diaz MD CONSENT: The risks, benefits [...] guidewire combination, a 4 | | | Hungarian angled catheter was advanced and positioned into [...] a | | | guidewire, a 6 Hungarian sheath was advanced and positioned into the [...] a | | | guidewire, a 7 Hungarian sheath was advanced and positioned into the [...] + + | Cedric Sonido Anderson - 10/18/2018 9:20 PM PDT CLINICAL DATA: 20-year-old woman with | | left upper extremity AV fistula for hemodialysis. Poor flows and difficulty with | | cannulation associated with hemodialysis. PROCEDURES PERFORMED:1. IR GUIDANCE FOR | | ACCESS2. ADDITIONAL ACCESS FOR INTERVENTION3. IR DIALYSIS FISTULAGRAM4. IR ANGIOPLASTY | | AV FISTULA VENOUS STRUCTURAL MANAGER: Doyle Diaz MD CONSENT: The risks, benefits [...] catheter guidewire combination, a | | 4 Hungarian angled catheter was advanced and positioned into [...] | | ANGIOPLASTY:Over a guidewire, a 6 Hungarian sheath was advanced and positioned into the [...] Over | | a guidewire, a 7 Hungarian sheath was advanced and positioned into the [...] LAB | | | | performed at [facility] | | | | | | [facility];[place], [place] | | | | | | [address] | | | | + + + [...] ESRD (end stage renal disease) ([facility]) End stage renal disease | + + | ESRD on hemodialysis (HCC) End stage renal disease | + + documented in this encounter"
--- OUTSIDE RECORDS SUMMARY | ~2019-12-21 | XMS | Encounter Summary ---
Demographics + + + | Address | [address] | | | [place] [address] | + + + | Home Phone [...] | | | | | [place] [address] | | + + + + + | Thania Mallory | ECON | [address] | | | | | [place] [address] | | + + + + + | Deidra Weldon | ECON | [address] | | | | | [place] | | | | | [address] | | + + + + + Care Team Providers + +------+ + | Care Associate Manager Name | Role | Phone | [...] | | | | | [place], | | | | | | [place] [address] | | | +--------+ + + + [...] [place] | | | | | | [address] | | | | | | [phone] | | | | | | | [...] [facility] - | [address] | [place] [address] | | | IMMUNOGENETICS/TRANS | [address] | | | | [facility] | | | | + + + + + documented in this encounter Visit Diagnoses Not on filedocumented in this encounter"
--- OUTSIDE RECORDS SUMMARY | ~2019-12-21 | XMS | Encounter Summary ---
Demographics + + + | Address | [address] | | | [place] [address] | + + + | Home Phone [...] | | | | | [place] [address] | | + + + + + | Thania Mallory | ECON | [address] | | | | | [place] [address] | | + + + + + | Deidra Weldon | ECON | [address] | | | | | [place] | | | | | [address] | | + + + + + Care Team Providers + +------+ + | Care Emergency Medcl Emt Name | Role | Phone | + [...] report) | | | | Physician's | [place], [place] | | | | | [address], [address] floor | [address] | | | | | [place], [place] | [phone] | | | | | [address] | | | | | | [phone] | | | +--------+ + + + [...] Denise | | | | | | [place], [place] | | | | | | [address] | | | | | | [phone] | | | | | | | | +--------+ + + + + documented as of this encounter Visit Diagnoses Not on filedocumented in this encounter"
--- OUTSIDE RECORDS SUMMARY | ~2019-12-21 | XMS | Encounter Summary ---
Demographics + + + | Address | [address] | | | [place] [address] | + + + | Home Phone [...] Author | [facility] | | | and [place] | + + + | Organization | [facility] | | | and [...] Providers + +------+ + | Care Senior Consultant Name | Role | Phone | [...] | | | | Anemia in | [place], [place] | [place], | | | | | ESRD | [address] | [place] [address] | | | | | (end-stage | Phone: | Phone: | | | | | renal | [phone] | [phone] | | | | | disease) | Fax: | Fax: | | | | | ([facility]) | [phone] | [phone] | | | | | Procedures | | | | | | | ID OFFICE | | | | | | [...] | Off-Site | [facility] [place] | Shravan Campias | ESRD (end stage | | 2018 | Visit | NEPHROLOGY [address] | M, DO [address] | renal disease) ([facility]) | | | | [address] | [address] [place] | (Primary Dx) | | | | [place], [place] | [place] [address] | | | | | [address] | [phone] | | | | | [phone] | | | +--------+ + + + [...] Fina charge nurse, Elisabeth Quijano RN, and [employer] medical student Yefri Bean MS III, about lifestyle modification, compliance, and her potential risk for increased her vascular morbidity, mortality. 2. She does voice that if she was able to take her residential driver's test, and obtains some form of used car, she offers that she may be able to attend more consistently? I discussed this wi th the renal ICT SALES ASSISTANT. 3. Monthly lab was reviewed with the patient. 4. Long-term prognosis remains poor, due to her poor to no insight into her chronic health conditions, or health maintenance. : Jamil Alonso MD, PhD documented in thi s encounter Plan of Treatment Not on filedocumented as of this encounter Visit Diagnoses + + | Diagnosis | + + | ESRD (end stage renal disease) (HCC) - Primary End stage renal disease | + + documented in this encounter"
--- OUTSIDE RECORDS SUMMARY | ~2019-12-21 | XMS | Encounter Summary ---
Demographics + + + | Address | [address] | | | [place] [address] | + + + | Home Phone [...] | | | | | [place] [address] | | + + + + + | Thania Mallory | ECON | [address] | | | | | [place] [address] | | + + + + + | Deidra Weldon | ECON | [address] | | | | | [place] | | | | | [address] | | + + + + + Care Team Providers + +------+ + | Care Patient Services Specialist Name | Role | Phone [...] | | [facility] | [place], [place] | | | | | [address] | [address] | | | | | [place] | [phone] | | | | | [facility], | | | | | | [address] [place] [address] | | | | | | [place], [place] | | | | | | [address] | | | | | | [phone] | | | +--------+ + + + [...] [place] | | | | | | [address] | | | | | | [phone] | | | | | | | [...] [address] | [place], [place] | [phone] | | [place] | | | | + + + + + documented in this encounter Visit Diagnoses Not on filedocumented in this encounter"
--- OUTSIDE RECORDS SUMMARY | ~2019-12-21 | XMS | Encounter Summary ---
Demographics + + + | Address | [address] | | | [place] [address] | + + + | Home Phone [...] Team Providers + +------+ + | Care Wallboard Worker Name | Role | Phone | [...] [address] [place] | [place] [address] | | | | | [address] [place] [address] | [phone] | | | | | [address] | | | | | | [phone] | | | +--------+ + + + [...] of this encounter Elodia Logan - 06/13/2018 12:54 PM PDTerrorElectronically signed by Elodia Hutchins at 2018 12:54 PM PDTdocumented in this encounter Plan of Treatment Not on filedocumented as of this encounter Visit Diagnoses Not on filedocumented in this encounter"
--- OUTSIDE RECORDS SUMMARY | ~2019-12-21 | XMS | Encounter Summary ---
Demographics + + + | Address | [address] | | | [place] [address] | + + + | Home Phone [...] | | | | | [place] [address] | | + + + + + | Thania Mallory | ECON | [address] | | | | | [place] [address] | | + + + + + | Deidra Weldon | ECON | [address] | | | | | [place] | | | | | [address] | | + + + + + Care Team Providers + +------+ + | Care Silver Chaser Name | Role | Phone | + [...] Nephrology at | MD Emanuel [address] [facility] [facility] | | | | | [place] | [facility] | | | | | [facility] | [place], [place] | | | | | [address] | [address] | | | | | [place] | [phone] | | | | | [facility], | | | | | | [address] [place] [address] | | | | | | [place], [place] | | | | | | [address] | | | | | | [phone] | | | +--------+ + + + [...] Denise | | | | | | [place], [place] | | | | | | [address] | | | | | | [phone] | | | | | | | [...] [address] | [place] [address] | [phone] | | HOSPITAL | | | | [...] | [address] | [place] [address] | [phone] | | HOSPITAL | | | | + + + + + documented in this encounter Visit Diagnoses Not on filedocumented in this encounter"
--- OUTSIDE RECORDS SUMMARY | ~2019-12-21 | XMS | Encounter Summary ---
Demographics + + + | Address | [address] | | | [place] [address] | + + + | Home Phone [...] | | | | | [place] [address] | | + + + + + | Thania Mallory | ECON | [address] | | | | | [place] [address] | | + + + + + | Deidra Weldon | ECON | [address] | | | | | [place] | | | | | [address] | | + + + + + Care Team Providers + +------+ + | Care Die Engraving Supervisor Name | Role | Phone | [...] | | | [address] | [facility] | | | | | [place], | [place], [place] | | | | | [place] [address] | [address] | | | | | [phone] | | | +--------+ + + + [...] Denise | | | | | | [place], [place] | | | | | | [address] | | | | | | [phone] | | | | | | | | +--------+ + + + + documented as of this encounter Visit Diagnoses Not on filedocumented in this encounter"
--- OUTSIDE RECORDS SUMMARY | ~2019-12-21 | XMS | Encounter Summary ---
Demographics + + + | Address | [address] | | | [place] [address] | + + + | Home Phone [...] + | Author | [facility] | | | and [place] | + + + | Organization | [facility] | | | [...] Team Providers + +------+ + | Care Log Tumbler Name | Role | Phone | + +------+ + | Jonathan Alonso MD | PCP | | + +------+ + Encounter Details +--------+ + + + + | Date | Type | Department | Care Team | Description | +--------+ + + + + | 10/08/ | Orders Only | [facility] | Provider, | Systolic congestive | | 2018 | | SYSTEM GENERIC OP | [address] | heart failure (HCC) | | | | CONVERSION [address] | [place]. | | | | | [address] [place], [place] | [place] [address] | | | | | [address] | | | | | | [phone] | | | +--------+ + + + [...]
--- OUTSIDE RECORDS SUMMARY | ~2019-12-21 | XMS | Encounter Summary ---
Demographics + + + | Address | [address] | | | [place] [address] | + + + | Home Phone [...] | | | | | [place] [address] | | + + + + + | Thania Mallory | ECON | [address] | | | | | [place] [address] | | + + + + + | Deidra Weldon | ECON | [address] | | | | | [place] | | | | | [address] | | + + + + + Care Team Providers + +------+ + | Care Profile Mill Operator Tape Control Name | Role | Phone | + [...] | | | [address] | [facility] | | | | | [place], | [place], [place] | | | | | [place] [address] | [address] | | | | | [phone] | | | +--------+ + + + [...] Denise | | | | | | [place], [place] | | | | | | [address] | | | | | | [phone] | | | | | | | | +--------+ + + + + documented as of this encounter Visit Diagnoses Not on filedocumented in this encounter"
--- OUTSIDE RECORDS SUMMARY | ~2019-12-21 | XMS | Encounter Summary ---
Demographics + + + | Address | [address] | | | [place] [address] | + + + | Home Phone [...] Author | [facility] | | | and [place] | + + + | Organization | [facility] | | [...] Providers + +------+ + | Care Library Technology Instructor Name | Role | Phone | + +------+ + PCP | Unavailable | + +------+ + Encounter Details +--------+ + + + + | Date | Type | Department | Care Team | Description | +--------+ + + + + | 04/08/ | Hospital | [facility] | Rik Simon MD | | | 2015 | Encounter | [facility] | [address] | | | | | [address] | [place], [place] | | | | | [place], [place] | [address] | | | | | [address] | [phone] | | | | | [phone] | | | +--------+ + + + [...] documented as of this encounter Progress Notes Coral Amador RPH - 04/08/2014 2:26 PM PST Progress Notes by Coral Amador RPH at 04/08/14 142 Author: Coral Amador RPH Service: (none) Author Type: Pharmacist Filed: 04/08/14 142 Date of Service: 04/08/141425 Status: Signed Machine Quilt Stuffer: Coral Amador RPH (Pharmacist) Clinical Pharmacy Note - Renal Dose Adjustment Dara Carteron 19 y.o. female Ht Readings from Last 1 Encounters: 04/08/14 1.676 m (5' 6") (75 %*, Z = 0.69) * Growth percentiles are based on [facility] 2-20 Years data. Wt Readings from Last 1 Encounters: 04/08/14 96.2 kg (212 lb 1.3 oz) (98 %*, Z = 2.12) * Growth percentiles are based on [facility] 2-20 Years data. CREATININE Date Value Ref Range Status 04/08/2014 8.68* 0.50 - 1.00 mg/dL Final Testing performed at [facility];[address] [place] [address];[place] [address] ESRD on HD Pharmacy to renally adjust medications per Dr. Simon Plan: No medications require dose adjustment for HD at this time. Pharmacy will continue to follow and adjust as appropriate. Pharmacist: Coral Amador 04/08/2014 2:25 PM onversio n Transaction, Provider Unknown - 04/08/2014 2:08 PM PSTFormatting of this note might be di fferent from the original. Nurse Progress Note by Cheryl Rubalcava RN at 04/08/14 1408 Author: Cheryl Rubalcava RN Service: (none) Author Type: Registered Nurse Filed: 04/08/14 1443 Date of Service: 04/08/14 1408 Status: Signed Machine Quilt Stuffer: Cheryl Rubalcava RN (Registered Nurse) Pt and pt family given discharge instructions, and rx script. Pt instructed to make follow up appt with AND info (address and phone number) on front page of pts instructions for pt. All questions answered, iv removed, catheter intact and dressing applied. Pt wheel julieth red out by escort services. Odalys SAMUELS onver arturo Transaction, Provider Unknown - 04/08/2014 1:21 PM PST Nurse Progress Note by Cheryl Rubalcava RN at 04/08/14 1321 Author: Cheryl Rubalcava RN Service: (none) Author Type: Registered Nurse Filed: 04/08/14 1321 Date of Service: 04/08/14 1321 Status: Signed Machine Quilt Stuffer: Cheryl Rubalcava RN (Registered Nurse) Pt family called to come back to be with pt at this time. docume nted in this encounter H&P Notes Kimberly Franz ARNP - 04/08/2014 8:50 AM PSTFormatting of this note might be different f rom the original. H&P by KRISHNA Agarwal at 04/08/14 0850 Author: KRISHNA Agarwal Service: Vascular Surgery Author Type: Advanced Registered N jonathone Practitioner Filed: 04/08/1450 Date of Service: 04/08/1450 Status: Signed Machine Quilt Stuffer: KRISHNA Agarwal (Advanced Registered Nurse Practitioner) [facility]: Vascular Surgery Pre-Operative History & Physical DIAGNOSIS: ESRD INDICATION: SAME PROCEDURE: Left arm fistula creation, tunnel catheter exchange CHIEF COMPLAINT: Need for hemodialysis access History Obtained From: patient HISTORY OF PRESENT ILLNESS The patient is a 19 y.o. female with significant past medical history of HSP who presents for new fistula creation. Has had a previous left radiocephalic fistula which clotted off. Currently dialyzing via RIJ tunnel catheter. We have discussed a new left arm cephalic fis moe and she would like to proceed. She has also been having issues with the function of her tunnel catheter therefore we have discussed exchange and she would like to proceed. REVIEW OF SYSTEMS Review of Systems Comprehensive ROS performed and pertinent items described in the HPI. Past Medical History Diagnosis Date HSP (Henoch-Schonlein purpura) nephritis Past Surgical History Procedure Laterality Date Av fistula placement Renal biopsy Laparoscopic peritoneal dialysis catheter insertion x2 Abdominal surgery Av fistula repair Left 03/07/2014 Procedure: AV FISTULA - GRAFT REPAIR/REVISION; Surgeon: Rik Simon MD; Location: [facility]; Service: Vascular; Laterality: Left; Declot graft Left 03/07/2014 Procedure: GRAFT - DECLOT; Surgeon: Rik Simon MD; Location: [facility]; Service: Va scular; Laterality: Left; Allergies Allergen Reactions Morphine Rash No current facility-administered medications on file prior to encounter. Current Outpatient Prescriptions on File Prior to Encounter Medication Sig Dispense Refill cinacalcet (SENSIPAR) 30 MG tablet Take 25 mg by mouth daily. folic acid-vitamin b complex-vitamin l-tbdrwgqc-ajxu (DIALYVITE) 3 MG TABS Take 1 table t by mouth daily. furosemide (LASIX) 20 MG tablet Take 20 mg by mouth daily. sevelamer (RENVELA) 800 MG tablet Take 800 mg by mouth 3 (three) times daily with meals . No family history on file. History Social History Marital Status: Single Spouse Name: N/A Number of Children: N/A Years of Education: N/A Occupational History Not on file. Social History Main Topics Smoking status: Never Smoker Smokeless tobacco: Not on file Alcohol Use: No Drug Use: No Sexual Activity: Not on file Other Topics Concern Not on file Social History Narrative PHYSICAL EXAM Vital Signs: There were no vitals taken for this visit. Physical Exam Vitals reviewed. Constitutional: Patient appears well-developed and well-nourished. HENT: Head: Normocephalic and atraumatic. Mouth/Throat: Oropharynx is clear and moist. Cardiovascular: Normal rate and regular rhythm. Pulmonary/Chest: Effort normal and breath sounds normal. Abdominal: Soft. Bowel sounds are normal. Musculoskeletal: Normal range of motion. Neurological: Patient is alert and oriented to person, place, and time. Skin: Skin is warm and dry. Vascular: Palp radial and brachial pulses DATA CBC: Lab Results Component Value Date WBC 7.9 03/07/2014 RBC 3.70 03/07/2014 HGB 12.9 03/07/2014 HCT 38.9 03/07/2014 MCV 105.2* 03/07/2014 MCH 35.0* 03/07/2014 MCHC 33.3 03/07/2014 RDW 51.6 03/07/2014 PLT 175 03/07/2014 MPV 8.9 03/07/2014 DIFFTYPE AUTOMATED 03/07/2014 BMP: Lab Results Component Value Date NA 138 03/07/2014 K 3.9 03/07/2014 CL 103 03/07/2014 CO2 26 03/07/2014 ANIONGAP 12 03/07/2014 GLUF 78 03/07/2014 BUN 12 03/07/2014 CREATININE 3.51* 03/07/2014 BCR 4 03/07/2014 CA 9.6 03/07/2014 EGFR CALCULATION NOT PERFORMED. RESULT NOT VALID IF AGE LT 20 YEARS. 03/07/2014 PROBLEM LIST There is no problem list on file for this patient. ASSESSMENT & PLAN 1. Patient is a 19 y.o. female with above specified procedure planned. 2. Procedure options, risks, benefits and alternatives reviewed with patient who express( es) understanding. Any and all questions were answered to their satisfaction. Primary Care Physician: KRISHNA Saez 04/02/2014 *CORE MEASURES REMINDER: If the patient has a known or suspected infection prior to surger y, please add diagnosis to the problem list (consider: Infection 136.9). documented in this encounter Miscellaneous Notes Op Note - Rik Simon MD - 04/08/2014 11:39 AM PSTFormatting of this note might be differen t from the original. Op Note by Rik Simon MD at 04/08/14 4384 Author: Rik Simon MD Service: Vascular Surgery Author Type: Physician Filed: 04/08/14 1150 Date of Service: 04/08/14 1139 Status: Signed Machine Quilt Stuffer: Rik Simon MD (Physician) [facility]: Vascular Surgery Operative Note Pre-operative Diagnosis: ESRD and need for termination clerk dialysis access Post-operative Diagnosis: Same Procedure(s): Left brachiocephalic fistula creation Replacement of right IJ tunneled dialysis catheter over wire under fluoroscopic guidanc e Surgeon: Rik Simon MD Ed Case Manager(s): KRISHNA Agarwal Anesthesia: General LMA Estimated Blood Loss: Less Than 50 ml Other: IV Fluids: 250 ml Indications: See pre-operative history and physical. Findings: Left arm cephalic vein of good size. However, brachial artery very small. Afte r anastomosis, strong thrill in fistula. Dopplerable ulnar signals at end of case. Catherer placed with tip in right atrium. Good aspiration and flush from all ports. Complications: None apparent Description of Procedure: Patient was properly identified and brought to the operating guillermina m where patient was placed supine on the operating table and patient underwent General LMA. Patient's left arm was then prepped and draped in the usual sterile fashion. Local anestheti c was then given to the antecubital fossa and a transverse incision was then made. First the cephalic vein was identified and branches of the cephalic vein were ligated with 3-0 silk s utures and divided. Next, the brachial artery was also identified and dissected. Patient was then given 3000 units of IV heparin. After 3 minutes an end-to-side anastomosis was created with the cephalic vein onto the brachial artery using 6-0 Prolene sutures in a running fash ion. After completion of the anastomosis, there was a strong thrill in the fistula. The kota ent had a dopplerable signal of the radial and ulnar artery at the end of the case. The wou nd was then irrigated and hemostasis was then assured. The deep dermal tissue was then close d with 3-0 Vicryl and the skin was then closed with 4-0 Monocryl in a subcuticular fashion. Mastisol and Steri-Strip closures were then placed and a sterile dressing was then applied. The right chest and neck were then prepped and draped in a sterile fashion. The tunneled d ialysis catheter port was aspirated and a stiff wire was placed through one of the ports wit h the tip of the wire advance into the IVC. The attachment of the catheter to the chest wal l was then freed and the catheter was removed over the wire. A new 19 cm catheter was then inserted over the wire with the tip of the catheter in the right atrium confirmed by fluoros copy. The catheter was then aspirated and flushed with heparized saline. The catheter was then secured to the chest wall with 3-0 nylon sutures. The catheter was then instilled wit h concentrated heparin as indicated. Once the catheter was secured, sterile dressings were then applied. At the end of the case, sponge, needle, and instrument counts were correct x2 . There were no apparent complications. Condition: Stable Rik Simon MD 04/08/2014 documented in this encoun ter Plan of Treatment Not on filedocumented as of this encounter Procedures + +--------+ + + + | Procedure Name | Priori | Date/Time | Associated Diagnosis | Comments | | | ty | | | | + +--------+ + + + | FL C ARM < 1 HOUR | Routin | 04/08/2014 | | Results for this | | | e | 11:48 AM | | procedure are in the | | | | PST | | results section. | + +--------+ + + + | TYPE AND SCREEN | Routin | 04/08/2014 | | Results for this | | | e | 9:53 AM | | procedure are in the | | | | PST | | results section. | + +--------+ + + + | BASIC METABOLIC | Routin | 04/08/2014 | | Results for this | | PANEL | e | 9:52 AM | | procedure are in the | | | | PST | | results section. | + +--------+ + + + documented in this encounter Results FL C-Arm < 1 Hour (04/08/2014 11:48 AM PST) + + | Specimen | + + | | + + + + + | Impressions | Performed At | + + + | 1. Limited fluoroscopic film, as above. | | + + + + + + | Narrative | Performed At | + + + | DARA KHAN C-ARM FLUORO UP TO 1 HOUR 04/08/2014 11:48 AM | | | HISTORY: Central line placement. TECHNIQUE: One view of the | | | chest using C-arm technique. FINDINGS: Limited fluoroscopic film | | | demonstrates a right subclavian or IJ central venous catheter with its | | | tip probably in the right atrium. This technique is not adequate to | | | exclude a pneumothorax. | | + + + + ------+ | Procedure Note | + ------+ | Sonido Steele Conversion - 10/19/2018 6:38 AM GRECIA CULLEN C-ARM FLUORO UP TO 1 | | HOUR04/08/2014 11:48 AM HISTORY:Central line placement. TECHNIQUE:One view of the chest | | using C-arm technique. FINDINGS:Limited fluoroscopic film demonstrates a right | | subclavian or IJ central venous catheter with its tip probably in the right atrium. This | | technique is not adequate to exclude a pneumothorax. IMPRESSION: 1. Limited | | fluoroscopic film, as above. Electronically signed by Chandler Lyn MD on | | 04/08/2014 12:30 PM | |TECHNIQUE: | |One view of the chest using C-arm technique. | | | |FINDINGS: | |Limited fluoroscopic film demonstrates a right subclavian or IJ central venous catheter wit h its tip probably in the right atrium. This technique is not adequate to exclude a pneumoth orax. | | | |IMPRESSION: | |1. Limited fluoroscopic film, as above. | | | | | + ------+ Type and Screen (04/08/2014 9:53 AM PST) + + + + + [...] LAB | | | | Blvd;[place] [address] | | | | + + + + + + | Antibody | NEGATIVE | | EXTERNAL | | | Screen | | | LAB | | + + + + + + | Antibody | Testing performed at | | EXTERNAL | | | Screen | [facility];[address] | | LAB | | | | [address];[place] [address] | | | | + + + + + + | BB BAND | [id number] | | EXTERNAL | | | | | | LAB | | + + + + + + | BB BAND | Testing performed at | | EXTERNAL | | | | [facility];[address] | | LAB | | | | Blvd;[place] [address] | | | | + + + [...] + +---------+ + + Basic Metabolic Panel (04/08/2014 9:52 AM PST) + + + + + + | Component | Value | Ref Range | Performed | Pathologist | | | | | At | Signature | + + + + + + | Na | 139Comment: Testing | 135 - 143 | EXTERNAL | | | | performed at [facility];[address] | mmol/L | LAB | | | | [address];[place] | | | | | | [address] | | | | + + + + + + | K | 4.1Comment: SLT | 3.5 - 4.9 | EXTERNAL | | | | HEMOLYSISTesting | mmol/L | LAB | | | | performed at [facility];[address] | | | | | | [address];[place] | | | | | | [address] | | | | + + + + + + | Cl | 102Comment: Testing | 99 - 109 mmol/L | EXTERNAL | | | | performed at [facility];[address] | | LAB | | | | [address];[place] | | | | | | [address] | | | | + + + + + + | CO2 | 28Comment: Testing | 23 - 32 mmol/L | EXTERNAL | | | | performed at [facility];[address] | | LAB | | | | [address];[place] | | | | | | [address] | | | | + + + + + + | Anion Gap | 13Comment: Testing | 5 - 20 mmol/L | EXTERNAL | | | | performed at [facility];[address] | | LAB | | | | [address];[place] | | | | | | [address] | | | | + + + + + + | Glucose, | 87Comment: Testing | 65 - 99 mg/dL | EXTERNAL | | | Fasting | performed at [facility];[address] | | LAB | | | | [address];[place] | | | | | | [address] | | | | + + + + + + | BUN | 32 (H)Comment: Testing | 8 - 25 mg/dL | EXTERNAL | | | | performed at [facility];[address] | | LAB | | | | [address];[place] | | | | | | [address] | | | | + + + + + + | Creatinine | 8.68 (H)Comment: Testing | 0.50 - 1.00 | EXTERNAL | | | | performed at [facility];[address] | mg/dL | LAB | | | | [address];[place] | | | | | | [address] | | | | + + + + + + | BUN/Creatin | 4Comment: Testing | | EXTERNAL | | | ine Ratio | performed at [facility];[address] | | LAB | | | | [address];[place] | | | | | | [address] | | | | + + + + + + | Calcium | 8.8Comment: NOTE NEW | 8.5 - 10.5 | EXTERNAL | | | | REFERENCE RANGETesting | mg/dL | LAB | | | | performed at [facility];[address] | | | | | | [address];[place] | | | | | | [address] | | | | + + + + + + | Estimated | CALCULATION NOT | mL/min/1.73m2 | EXTERNAL | | | GFR | PERFORMED. RESULT NOT | | LAB | | | | VALID IF AGE LT 20 | | | | | | YEARS.Comment: Testing | | | | | | performed at [facility];[address] | | | | | | [address];[place] | | | | | | [address] | | | | + + + [...]
--- OUTSIDE RECORDS SUMMARY | ~2019-12-21 | XMS | Encounter Summary ---
Demographics + + + | Address | [address] | | | [place] [address] | + + + | Home Phone [...] + | Author | [facility] | | | and [place] | + + + | Organization | [facility] | | | [...] Team Providers + +------+ + | Care Hot Head Machine Operator Name | Role | [...] + + | 07/24/ | Telephone | [facility] | Saundra Pineda RN | CHF Management (CHF | | 2020 | | [address] | | quality measures) | | | | [place] | | | | | | [address] | | | | | | [phone] | | | +--------+ + + + [...]
--- OUTSIDE RECORDS SUMMARY | ~2019-12-21 | XMS | Encounter Summary ---
Demographics + + + | Address | [address] | | | [place] [address] | + + + | Home Phone [...] | | | | | [place] [address] | | + + + + + | Thania Mallory | ECON | [address] | | | | | [place] [address] | | + + + + + | Deidra Weldon | ECON | [address] | | | | | [place] | | | | | [address] | | + + + + + Care Team Providers + +------+ + | Care Submersible Pilot Name | Role | Phone | [...] update | | | | Caro Chan [place], | [place], [place] | from pt's mom) | | | | [place] [address] | [address] | | | | | [phone] | | | +--------+ + + + [...] time of her last clinic appt a [facility], but there are some relevant updates to her financial savings goal and post-tx support plan. Fundraising: Mom states pt's BERRY account now has a balance of $1190.00 and they have another fund-[employer]ag[employer] event planned in next few months, so [...] the plan after being released from the [facility] area, is for the patient to [...] and follow up with pt/family at next [facility] cl inic appt or at any [...] of last clinic visit. Mariza Hsu MSW, [facility] Renal Transplant Floor Polisher pg. #[phone] documented in this en counter Plan of Treatment +--------+ + + + + | Date | Type | Specialty | Care Team | Description | +--------+ + + + + | 05/04/ | Hospital | Adult Acute Care | El Starr MD | | | 2022 | Encounter | | [address] | | | | | | [place] | | | | | | [address] | | | | | | [phone] | | | | | | | | +--------+ + + + + documented as of this encounter Visit Diagnoses Not on filedocumented in this encounter
--- OUTSIDE RECORDS SUMMARY | ~2019-12-21 | XMS | Clinical Summary ---
Demographics + + + | Address | [address] | | | [place] [address] | + + + | Home Phone [...] | | | | | [place] [address] | | + + + + + | Thania Mallory | ECON | [address] | | | | | [place] [address] | | + + + + + | Deidra Weldon | ECON | [address] | | | | | [place], [place] | | | | | [address] | | + + + + + Care Team Providers + +------+ + | Care Policy Manager Name | Role | Phone | + +------+ + | Jonathan Alonso MD | PCP | | + +------+ + Source Comments DANILO is fully live on both EpicCare Ambulatory and EpicCare InPatient.[facility] Allergies + + + + [...] Denise | | | | | | [place], [place] | | | | | | [address] | | | | | | [phone] | | | | | | | [...] + +--------+ | MEDICARE | MEDICA | [id number] | 05/05/19 | [phone] | [address] | Medica | | | RE A & | | 13-Pre | 1 | [address] | re | | | B | | sent | | [place] | | | | | | | | [address] | | + +--------+ +--------+ + +--------+ | MANAGER FUNCTIONAL MEDICAID | MANAGER FUNCTIONAL | [id number] | Effect | | | Medica | | | EASTER | | eboni | | | id | | | [place] | | for | | | | | | | | all | | | | | | | | dates | | | | + +--------+ +--------+ + +--------+ | MEDICARE RENAL | MEDICA | [id number] | Effect | | RENAL | Agency | | RECIPIENT EVAL | RE | | eboni | | DEPT [id number] | | | | RENAL | | for | | [place], | | | | RECIPI | | all | | [place] [address] | | | | ENT | | [...] | Self | [birth year] | [address] | | | al/Fam | | 1994 | [phone] | [address] [place] | | | [place] | | | 2 (Home) | [address] | | | | | | [phone] | | | | | | | 0 (Work) | | + +--------+ +--------+ + + | CORY ALVES | [place] | Mother | [birth year] | [address] | | | l | | 1899 | [phone] | [address] [place] | | | [place] | | | 2 (Home) | [address] | | | g | | | | | + +--------+ +--------+ + +
--- OUTSIDE RECORDS SUMMARY | ~2019-12-21 | XMS | Encounter Summary ---
Demographics + + + | Address | [address] | | | [place] [address] | + + + | Home Phone [...] Team Providers + +------+ + | Care Mold Filler Name | Role | Phone | [...] | | | | [address] | [place], [place] | [place], | | | | | stage renal | [address] | [place] [address] | | | | | disease | Phone: | Phone: | | | | | ([facility]) | [phone] | [phone] | | | | | Infection | Fax: | Fax: | | | | | and | [phone] | [phone] | | | | | inflammatory | [...] | (Primary Dx); | | | | [place], [place] | [place] [address] | Anemia in ESRD | | | | [address] | [phone] | (end-stage renal | | | | [phone] | | disease) ([facility]) | +--------+ + + + [...] hold the EPO and recheck Hb weekly. Yrn quarles'll resume her EPO when the Hb <11.0 [...] will be rechecked in 2 weeks. CC: Denver Fina Joy MD, Renal Transplant [facility], [facility] Blake Chavarria MD, FACS documented in thi [...]
--- OUTSIDE RECORDS SUMMARY | ~2019-12-21 | XMS | Encounter Summary ---
Demographics + + + | Address | [address] | | | [place] [address] | + + + | Home Phone [...] Author | [facility] | | | and [place] | + + + | Organization | [facility] | | | [...] Team Providers + +------+ + | Care Biomedical Engineering Technologist Name | Role | Phone | + +------+ + | Tien Nicholson MD | PCP | | + +------+ + Encounter Details +--------+ + + + + | Date | Type | Department | Care Team | Description | +--------+ + + + + | 07/18/ | Hospital | [facility] | Mary Mckay, | Febrile illness; | | 2019 - | Encounter | [facility] | [address] | Recurrent pleural | | | | CARE FLOOR [address] | [place] [address] | effusion on right; | | 07/24/ | | [address] | [phone] | Hypoxia; History of | | 2019 | | [place], [place] | | end stage renal | | | | [address] | | disease; ESRD on | | | | [phone] | | hemodialysis ([facility]); | | | | | | Anemia in ESRD | | | | | | (end-stage renal | | | | | | disease) ([facility]); | | | | | | Moderate to severe | | | | | | pulmonary | | | | | | hypertension ([facility]); | | | | | | Chronic right-sided | | | | | | heart failure ([facility]); | | | | [...] 1306 Date of Service: 07/24/18905 Status: Signed Nurse Assistant: Usha Martínez MD (Physician) [facility] Service: Hospitalist Discharge Summary [...] involving the right lung. Signed by: Suha Lenz, Brian Sign Date/Time: 07/20/2018 9:30 AM ADDENDUM ENDS [...] renal disease on hemodialysis Monday and Monday (supervisor research kennel Dr. 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 with bilateral pleural effusions and ascites status post thoracentesis 1.5 L removed transudative and 4 L ascitic fluid removed who presents to [facility] ER from [facility] for sepsis likely seco ndary to [...] after discharge and to follow -up with supervisor research kennel and records officer within 1 to 2 weeks after discharge [...] Location: [facility]; Service: Vascula r; Laterality: Left; cephalic AV FISTULA REPAIR Left 03/07/2014 Procedure: AV FISTULA - GRAFT REPAIR/REVISION; Surgeon: Rik Simon MD; Location: [facility]; Service: Vascular; Laterality: Left; DECLOT GRAFT Left 03/07/2014 Procedure: GRAFT - DECLOT; Surgeon: Rik Simon MD; Location: [facility]; Service: Vas cular; Laterality: Left; DIALYSIS [facility]; Service: Vascular; Laterality: Left; Allergies Allergen [...] PH Unknown 7.48 Fluid culture w/gram stain [[id number]] Collected: 07/21/18 1400 Order Status: Completed Lab Status: Preliminary result Updated: 07/24/18 0948 Specimen: Body Fluid from Thoracic Fluid Specimen Description THORACIC FLUID GRAM STAIN NO CELLS OR ORGANISMS SEEN CULTURE NO GROWTH 3 DAYS Fluid total protein (Body fluid) [[id number]] Collected: 07/21/18 1400 Order Status: Completed Lab Status: Final result Updated: 07/21/18 1650 Specimen: Body Fluid from Thoracentesis Fluid FLUID TOTAL PROTEIN 4.2 g/dL Comment: This is not a station supervisor validated sample type for this method. No reference ra nges have been established. Testing performed at [facility], [address] [place] [address] FLUID TP SOURCE THORACENTESIS Comment: Testing performed at [facility];[address] [place] [address]868 Lactate dehydrogenase, body fluid [[id number]] Collected: 07/21/18 1400 Order Status: Completed Lab Status: Final result Updated: 07/21/18 1650 Specimen: Body Fluid from Thoracentesis Fluid FLUID LDH 148 U/L Comment: This is not a station supervisor validated sample type for this method. No reference ra nges have been established. Testing performed at [facility], [address] [place] [address] pH, body fluid [[id number]] Collected: 07/21/18 1400 Order Status: Completed Lab Status: Final result Updated: 07/21/18 1426 Specimen: Body Fluid from Thoracentesis Fluid FLUID PH 7.48 Comment: Testing performed at [facility];[address] [place] [address] Blood Culture Set 1 [[id number]] Collected: 07/19/18 0853 Order Status: Completed Lab Status: Preliminary result Updated: 07/21/18 06 Specimen: Blood from Blood, peripheral draw Specimen Description BLOOD, PERIPHERAL DRAW SPECIAL REQUESTS RIGHT AC CULTURE NO GROWTH 2 DAYS Blood Culture Set 2 [[id number]] Collected: 07/19/18 0925 Order Status: Completed Lab Status: Preliminary result Updated: 07/21/18 06 Specimen: Blood from Blood, peripheral draw Specimen Description BLOOD, PERIPHERAL DRAW SPECIAL REQUESTS RT FOREARM CULTURE NO GROWTH 2 DAYS Respiratory Filmarray [[id number]] (Abnormal) Collected: 07/19/18 013 Order Status: Completed Lab Status: Final result Updated: 07/19/18541 Specimen: Nasopharyngeal Culture ADENOVIRUS Not Detected CORONAVIRUS [...] by Molecular Methodology Comment: Testing performed at [facility], [address] [place] [address] MRSA by PCR [[id number]] Collected: 07/19/18133 Order Status: Completed Lab Status: Final result Updated: 07/19/18 0304 Specimen: Nasal from Nares(Nose) SOURCE NARES(NOSE) MRSA PCR NEGATIVE Comment: Testing performed at [facility];[address] [place] [address] Disposition: Home Condition: Stable Code Status: Full [...] Nicholson MD [address], [address] [place] [address] Schedule an appointment as soon as possible for a visit in 1 week [facility] [address] [facility] [address] Schedule an appointment as soon as possible for a visit in 1 week [facility] [address] [place] [facility] [address] Schedule an appointment as soon as [...] different from the original. Case Management by Romaine Saleh RN at 07/24/18 1028 Author: Romaine Saleh RN Service: (none) Author Type: Registered Nurse Filed: 07/24/18 1100 Date of Service: 07/24/18 1028 Status: Signed Nurse Assistant: Romaine Saleh RN (Registered Nurse) Disposition: Home Transportation: Friend All DC paperwork completed Patient and family in agreement with discharge plan Medicare important message (Given): Yes &copy placed in chart. ROMAINE SALEH RN,CM. onver arturo Transaction, Provider Unknown - 07/24/2018 10:16 AM PDT Nurse Progress Note by Christina Aguilar RN at 07/24/18 1016 Author: Christina Aguilar RN Service: (none) Author Type: Registered Nurse Filed: 07/24/18 1016 Date of Service: 07/24/18 1016 Status: Signed Nurse Assistant: Christina Aguilar RN (Registered Nurse) Discharge teaching given, prescriptions faxed by welfare case worker to pt's pharmacy. Pt denies c oncern. Ride home at bedside. Pt getting dressed now for discharge. onver arturo Transaction, Provider Unknown - 07/24/2018 10:12 AM PDT Case Management by Romaien Saleh RN at 07/24/18 1012 Author: Romaine Saleh RN Service: (none) Author Type: Registered Nurse Filed: 07/24/18 1014 Date of Service: 07/24/18 1012 Status: Signed Nurse Assistant: Romaine Saleh RN (Registered Nurse) Discharge planning: Met with pt, she indicated her friend is on her way to transport her from the hospital, no other needs identified. ADÁN signed and copy placed in chart. Pt's discharge prescriptions was faxed to [facility], Billie Braxton MD - 07/24/2018 9:09 AM PDTFormatting of this note might be different from th e original. Progress Notes by Billie Gupta MD at 07/24/18 0909 Author: Billie Gupta MD Service: Nephrology Author Type: Physician Filed: 07/24/18 0911 Date of Service: 07/24/18 0909 Status: Signed Nurse Assistant: Billie Gupta MD (Physician) [facility] Followup -Nephrology I saw . Dara Louise today for follow-up. she is interviewed, examined and meds/ labs Have been reviewed. 23-year-old female with an extensive past medical history of IgA vasculitis, end-stage abdiel l disease on hemodialysis Monday and Monday (supervisor research kennel Dr. Anguiano) , chronic c ombined heart failure, severe pulmonary hypertension, cor pulmonale, moderate mitral valve r egurgitation, severe tricuspid regurgitation and other chronic comorbidities who was dischar ged on 05/[address] [facility] with bilateral pleural effusions and ascites status post thoracente sis 1.5 L removed transudative and 4 L ascitic fluid removed who presents to [facility] ER f [facility] for sepsis likely secondary to pneumonia. [...] Progress Note by Minda Hudson RN at 07/24/18 045 Author: Minda Hudson RN Service: (none) Author Type: Registered Nurse Filed: 07/24/18 0530 Date of Service: 07/24/18454 Status: Signed Nurse Assistant: Minda Hudson RN (Registered Nurse) Pt reporting [...] Service: (none) Author Type: Registered Nurse Filed: 07/23/181832 Date of Service: 07/23/181825 Status: Signed Nurse Assistant: Saundra Hartley RN (Registered Nurse) Pt continues [...] of shift audit complete. Saundra Hartley RN blemo Sotero parker MD - 07/23/2018 1:36 PM PDT Progress Notes by Sotero Reinoso MD at 07/23/181335 Author: Sotero Reinoso MD Service: Hospitalist Author Type: Physician Filed: 07/23/181336 Date of Service: 07/23/181335 Status: Signed Nurse Assistant: Sotero Reinoso MD (Physician) [facility] Service: Hospitalist Progress Note Hospital Day: LOS: 4 days Briefly, 23-year-old female with an extensive past medical history of IgA vasculitis, end-s tage renal disease on hemodialysis Monday and Monday (supervisor research kennel Dr. Anguiano) co mplicated with thrombosis of vascular dialysis stent on Plavix, hypertension, asthma, chroni c combined heart failure, severe pulmonary hypertension, cor pulmonale, moderate mitral valv e regurgitation, severe tricuspid regurgitation and other chronic comorbidities who was disc harged on 05/[address] [facility] with bilateral pleural effusions and ascites status post thorace ntesis 1.5 L removed transudative and 4 L ascitic fluid removed who presents to [facility] E R from [facility] for sepsis likely secondary to pulmonary [...] weeks after discharge and to follow-up with supervisor research kennel and records officer within 1 to 2 weeks after discharge [...] treatment team notes reviewed. Principal Problem: Sepsis ([facility]) Active Problems: ESRD on hemodialysis (HCC) SOB (shortness of breath) Moderate to severe pulmonary hypertension (HCC) Non-rheumatic mitral regurgitation Dilated cardiomyopathy ([facility]) Acute hypoxemic respiratory failure ([facility]) Pleural effusion on right Chronic right-sided heart failure ([facility]) Hypertension Pancytopenia ([facility]) Chest pain Other ascites Troponin I above reference range Anemia in ESRD (end-stage renal disease) ([facility]) ASSESSMENT & PLAN 1. Sepsis: -Hemodynamically stable. -Noted at [facility] the patient was febrile with a [...] The patient does follow up with outpatient records officer (Dr. Mahmood) patient is tentative ly and [...] 07/23/18926 Date of Service: 07/23/18917 Status: Signed Nurse Assistant: Billie Gupta MD (Physician) [facility] Followup -Nephrology I saw Ms. Dara Louise today for follow-up. she is interviewed, examined and meds/ labs Have been reviewed. 23-year-old female with an extensive past medical history of IgA vasculitis, end-stage abdiel l disease on hemodialysis Monday and Monday (supervisor research kennel Dr. Anguiano) , chronic c ombined heart failure, severe pulmonary hypertension, cor pulmonale, moderate mitral valve r egurgitation, severe tricuspid regurgitation and other chronic comorbidities who was dischar ged on 05/[address] [facility] with bilateral pleural effusions and ascites status post thoracente sis 1.5 L removed transudative and 4 L ascitic fluid removed who presents to [facility] for sepsis likely secondary to pneumonia. [...] . Intake/Output Summary (Last 24 hours) at 07/23/18 0918 Last data filed at 07/23/18 0622 Gross per 24 hour Intake 1770.33 ml [...] 07/23/18622 Date of Service: 07/23/18622 Status: Signed Nurse Assistant: Shannon Martell RN (Registered Nurse) No acute changes since shift assessment. Vital signs stable. Medicated for nausea x 1 with Zofran and x 1 with Phenergan. Medicated for itching x 1 with Benadryl 50 mg. Medicated for pain x 2 with Dilaudid 1 mg. End of shift audit and 24 hour chart check complete. Shannon Martell RN otero Lau MD - 07/22/2018 5:23 PM PDT Progress Notes by Sotero Reinoso MD at 07/22/181722 Author: Sotero Reinoso MD Service: Hospitalist Author Type: Physician Filed: 07/22/181726 Date of Service: 07/22/181722 Status: Signed Nurse Assistant: Sotero Reinoso MD (Physician) [facility] Service: Hospitalist Progress Note Hospital Day: LOS: 3 days 23-year-old female with an extensive past medical history of IgA vasculitis, end-stage abdiel l disease on hemodialysis Monday and Monday (supervisor research kennel Dr. Anguiano) complicated with thrombosis of vascular dialysis stent on Plavix, hypertension, asthma, chronic combine d heart failure, severe pulmonary hypertension, cor pulmonale, moderate mitral valve regurgi tation, severe tricuspid regurgitation and other chronic comorbidities who was discharged on 05/[address] [facility] with bilateral pleural effusions and ascites status post thoracentesis 1.5 L removed transudative and 4 L ascitic fluid removed who presents to [facility] ER from [facility] for sepsis likely secondary to pneumonia. [...] Dilated cardiomyopathy (HCC) Acute hypoxemic respiratory failure ([facility]) Pleural effusion on right Chronic right-sided heart failure ([facility]) Hypertension Pancytopenia (HCC) Chest pain Other ascites Troponin I above reference range Anemia in ESRD (end-stage renal disease) ([facility]) ASSESSMENT & PLAN 1. Sepsis: -Hemodynamically stable. -Noted at [facility] the patient was febrile with a [...] The patient does follow up with outpatient records officer (Dr. Mahmood) patient is tentative ly and [...] Note by Rafaela Patel RN at 07/22/18 1606 Author: Rafaela Patel RN Service: (none) Author Type: Registered Nurse Filed: 07/22/18 1620 Date of Service: 07/22/18 160 Status: Addendum Nurse Assistant: Rafaela Patel RN (Registered Nurse) Related Notes: [...] Notes by Billie Gupta MD at 07/22/18 0916 Author: Billie Gupta MD Service: Nephrology Author Type: Physician Filed: 07/22/18 1221 Date of Service: 07/22/18 0934 Status: Addendum Nurse Assistant: Billie Gupta MD (Physician) Related Notes: Original Note by KRISHNA Sahu (Advanced Registered Nurse Practitio ner) filed at 07/22/18 1055 [facility] Followup -Nephrology I saw . Dara Louise today for follow-up. she is interviewed, examined and meds/ labs Have been reviewed. 23-year-old female with an extensive past medical history of IgA vasculitis, end-stage abdiel l disease on hemodialysis Monday and Monday (supervisor research kennel Dr. Anguiano) complicated with thrombosis of vascular dialysis stent on Plavix, hypertension, asthma, chronic combine d heart failure, severe pulmonary hypertension, cor pulmonale, moderate mitral valve regurgi tation, severe tricuspid regurgitation and other chronic comorbidities who was discharged on 05/[address] [facility] with bilateral pleural effusions and ascites status post thoracentesis 1.5 L removed transudative and 4 L ascitic fluid removed who presents to [facility] ER from [facility] for sepsis likely secondary to pneumonia. [...] Intake/Output Summary (Last 24 hours) at 07/22/18 0993 Last data filed at 07/21/18 2302 Gross [...] Progress Note by Priti Priest RN at 07/22/18653 Author: Priti Priest RN Service: (none) Author Type: Registered Nurse Filed: 07/22/1856 Date of Service: 07/22/18653 Status: Signed Nurse Assistant: Priti Priest RN (Registered Nurse) SBP 80-100's, Pt reports slight lightheadedness with pressures in 80's. Afebrile. HR SR 80' s. No other changes over noc. WCTM Chart chart complete onver arturo Transaction, Provider Unknown - 07/21/2018 7:42 PM PDT Nurse Progress Note by Francesca Bustos RN at 07/21/181941 Author: Francesca Bustos RN Service: (none) Author Type: Registered Nurse Filed: 07/21/181942 Date of Service: 07/21/181941 Status: Signed Nurse Assistant: Francesca Bustos RN (Registered Nurse) No significant changes from shift assessment. No falls or new signs of skin breakdown. Pt p ain & nausea well controlled with PRNs (see MAR). No complaints of SOB. VSS for remainder of shift. WCM End of shift chart check done. blemo Sotero parker MD - 07/21/2018 12:33 PM PDT Progress Notes by Sotero Reinoso MD at 07/21/18 1233 Author: Sotero Reinoso MD Service: Hospitalist Author Type: Physician Filed: 07/22/18 7307 Date of Service: 07/21/18 1233 Status: Signed Nurse Assistant: Sotero Reinoso MD (Physician) [facility] Service: Hospitalist Progress Note Hospital Day: LOS: 2 days 23-year-old female with an extensive past medical history of IgA vasculitis, end-stage abdiel l disease on hemodialysis Monday and Monday (supervisor research kennel Dr. Anguiano) complicated with thrombosis of vascular dialysis stent on Plavix, hypertension, asthma, chronic combine d heart failure, severe pulmonary hypertension, cor pulmonale, moderate mitral valve regurgi tation, severe tricuspid regurgitation and other chronic comorbidities who was discharged on 05/[address] [facility] with bilateral pleural effusions and ascites status post thoracentesis 1.5 L removed transudative and 4 L ascitic fluid removed who presents [facility] likely secondary to pneumonia. [...] (end-stage renal disease) (HCC) ASSESSMENT & PLAN 1. Sepsis: -Hemodynamically stable. -Noted at [facility] the patient was febrile with a [...] The patient does follow up with outpatient records officer (Dr. Mahmood) patient is tentative ly and [...] Date of Service: 07/21/18 1024 Status: Signed Nurse Assistant: Billie Gupta MD (Physician) [facility] Followup -Nephrology I saw [...] 07/21/18614 Date of Service: 07/21/18614 Status: Signed Nurse Assistant: Gris Hawk RN (Registered Nurse) Medicated for pain x1, nausea x1. No other acute changes noted. End of shift review complet e. onver arturo Transaction, Provider Unknown - 07/20/2018 7:44 PM PDT Nurse Progress Note by Francesca Bustos RN at 07/20/181943 Author: Francesca Bustos RN Service: (none) Author Type: Registered Nurse Filed: 07/20/181945 Date of Service: 07/20/181943 Status: Signed Nurse Assistant: Francesca Bustos RN (Registered Nurse) No significant [...] 07/20/181624 Date of Service: 07/20/181624 Status: Signed Nurse Assistant: Prashanth Estevez RN (Registered Nurse) Infection Prevention [...] completed Mycoplasma pneumoniae Droplet (DI) Prashanth Estevez [facility] blemo Sotero parker MD - 07/20/2018 4:15 PM PDT Progress Notes by Sotero Reinoso MD at 07/20/18 3406 Author: Sotero Reinoso MD Service: Hospitalist Author Type: Physician Filed: 07/20/18 5509 Date of Service: 07/20/181614 Status: Signed Nurse Assistant: Sotero Reinoso MD (Physician) [facility] Service: Hospitalist Progress Note Hospital Day: LOS: 1 day 23-year-old female with an extensive past medical history of IgA vasculitis, end-stage abdiel l disease on hemodialysis Monday and Monday (supervisor research kennel Dr. Anguiano) complicated with thrombosis of vascular dialysis stent on Plavix, hypertension, asthma, chronic combine d heart failure, severe pulmonary hypertension, cor pulmonale, moderate mitral valve regurgi tation, severe tricuspid regurgitation and other chronic comorbidities who was discharged on 05/[address] [facility] with bilateral pleural effusions and ascites status post thoracentesis 1.5 L removed transudative and 4 L ascitic fluid removed who presents to [facility] ER from [facility] for sepsis likely secondary to pneumonia. [...] hypertension (HCC) Non-rheumatic mitral regurgitation Dilated cardiomyopathy ([facility]) Acute hypoxemic respiratory failure ([facility]) Pleural effusion on right Chronic right-sided heart failure ([facility]) Hypertension Pancytopenia (HCC) Chest pain Other ascites Troponin I above reference range Anemia in ESRD (end-stage renal disease) ([facility]) ASSESSMENT & PLAN 1. Sepsis: -Hemodynamically stable. -Noted at [facility] the patient was febrile with a [...] The patient does follow up with outpatient records officer (Dr. Mahmood) patient is tentative ly and [...] Management by Stephanie Hirsch RN at 07/20/18 0076 Author: Stephanie Hirsch RN Service: (none) Author Type: Registered Nurse Filed: 07/20/18 9189 Date of Service: 07/20/18 9380 Status: Signed Nurse Assistant: Stephanie Hirsch RN (Registered Nurse) 07/20/18 1500 [...] Oriented Prior functional status independent Power of Printmaker No Anticipated Discharge Plan Post Acute Care Needs None at this time Plan communicated to patient/family Yes Resources Financial concerns No Transportation issues No Patient/Family concerns No Prescription Plan Yes Name of Pharmacy [facility] or [facility] Previous home health equipment [...] resources utilized / needed: [facility] Assistance in transportation: pov w/friends Identification of any specific education / training: tbd Barriers to Discharge / Alternative housing needed: none Anticipated DCP: Home Danae Hirsch RN,BSN,CM udy Patel ARNP - 07/20/2018 8:50 AM PDT Progress Notes by KRISHNA Nice at 07/20/18 0850 Author: KRISHNA Nice Service: Radiology Author Type: Advanced Registered Nurse Derick hancock Filed: 07/20/18901 Date of Service: 07/20/1850 Status: Signed Nurse Assistant: KRISHNA Nice (Advanced Registered Nurse Practitioner) [facility] Service: Radiology Progress Note [...] Progress Note by Nereida Edwards RN at 07/20/18 0655 Author: Nereida Edwards RN Service: (none) Author Type: Registered Nurse Filed: 07/20/18 0656 Date of Service: 07/20/18 0655 Status: Signed Nurse Assistant: Nereida Edwards RN (Registered Nurse) VS stable. [...] 07/19/181925 Date of Service: 07/19/181925 Status: Signed Nurse Assistant: Francesca Bustos RN (Registered Nurse) No significant [...] Progress Notes by Antonio Pabon MD at 07/19/181349 Author: Antonio Pabon MD Service: Nephrology Author Type: Physician Filed: 07/19/181729 Date of Service: 07/19/181349 Status: Signed Nurse Assistant: Antonio Pabon MD (Physician) [facility] Service: NEPHROLOGY Dialysis Note Dara Louise 23 y.o. [id number] female [facility] Day: LOS: 0 days 23-year-old female [...] and examined on hd with hd rn Joee tolerating hd/ uf well Access functioning well [...] FISTULA; Surgeon: Rik Simon MD; Location: [facility]; Service: Vascula r; Laterality: Left; cephalic AV FISTULA REPAIR Left 03/07/2014 Procedure: AV FISTULA - GRAFT REPAIR/REVISION; Surgeon: Rik Simon MD; Location: [facility]; Service: Vascular; Laterality: Left; DECLOT GRAFT Left 03/07/2014 Procedure: GRAFT - DECLOT; Surgeon: Rik Simon MD; Location: [facility]; Service: Vas cular; Laterality: Left; DIAL[facility] Service: V[facility]; Laterality: Left; Prescriptions Prior [...] on file Social History Narrative Lives in [place], 2 wks ago fell at home , [...] change: Examination: seen on hd with hd rn Honey APPEARANCE: The patient is a pleasant sitting [...] renal disease COMPARISON: CT CHEST WO Aileen BRUNO (05/26/2018); PROCEDURE: Axial images through the chest. [...] patient only did 1-1/2-hour of dialysis yest martha Seen and examined on hd tolerating hd/ [...] earlier and charting completed later Dictation software, [employer], used which may contain error for similar [...] Date of Service: 07/19/18 1020 Status: Signed Nurse Assistant: Francesca Bustos RN (Registered Nurse) No significant changes from shift assessment. No falls or new signs of skin breakdown. Pt p ain, itching & nausea controlled with PRNs (see MAR). VSS for remainder of shift. WCM End of shift chart check done. bleSotero theodore MD - 07/19/2018 8:01 AM PDT Progress Notes by Sotero Reinoso MD at 07/19/18 0801 Author: Sotero Reinoso MD Service: Hospitalist Author Type: Physician Filed: 07/19/18 1427 Date of Service: 07/19/18 0801 Status: Addendum Nurse Assistant: Sotero Reinoso MD (Physician) Related Notes: Original Note by Sotero Reinoso MD (Physician) filed at 07/19/18 9561 [facility] Service: Hospitalist Progress Note Hospital Day: LOS: 0 days 23-year-old female with an extensive past medical history of IgA vasculitis, end-stage abdiel l disease on hemodialysis Monday and Monday (supervisor research kennel Dr. Anguiano) complicated with thrombosis of vascular dialysis stent on Plavix, hypertension, asthma, chronic combine d heart failure, severe pulmonary hypertension, cor pulmonale, moderate mitral valve regurgi tation, severe tricuspid regurgitation and other chronic comorbidities who was discharged on 05/[address] [facility] with bilateral pleural effusions and ascites status post thoracentesis 1.5 L removed transudative and 4 L ascitic fluid removed who presents to [facility] ER from [facility] for sepsis likely secondary to pneumonia. [...] -Hemodynamically stable except for tachycardia. -Noted at [facility] the patient was febrile with a T-max [...] The patient does follow up with outpatient records officer (Dr. Mahmood) patient is tentative ly and [...] 07/19/18129 Date of Service: 07/19/18129 Status: Signed Nurse Assistant: Jae Gutierres RPH (Pharmacist) Renal Dosing Monitoring: S: Renal dose monitoring per protocol. O: Patient on HD - M/W/F A/P: Changed Cefepime from 2g Q12H to 1g Q24H. Pharmacist: Jae Gutierres PharmD docume nted in this encounter H&P Notes Mary Mckay MD - 07/18/2018 11:45 PM PDTFormatting of this note might be different fro m the original. H&P by Mary Mckay MD at 07/18/182344 Author: Mary Mckay MD Service: Hospitalist Author Type: Physician Filed: 07/29/182032 Date of Service: 07/18/182344 Status: Addendum Nurse Assistant: Mary Mckay MD (Physician) Related Notes: Original Note by Mary Mckay MD (Physician) filed at 07/19/18312 [facility] Service: Hospitalist Admission History & Physical Date of Admission: 07/18/2018 Requesting Physician: , Emergency Department Reason for Admission: Sepsis. Possible pneumonia History Obtained From: patient, chart review, Quality of history: good CHIEF COMPLAINT: Patient presented to the Emergency Department by: Chief Complaint Chief Complaint Patient presents with Pneumonia transfer from [facility] pt was at dialysis, did not finish due to a cough. recieves dialysis M, W, F HISTORY OF PRESENT ILLNESS The patient is 23 y.o. female with significant past medical history of Henoch-Schonlein pur mindy; end-stage renal disease, on maintenance hemodialysis Monday, Monday, Monday, follow ed by Dr. Anguiano; essential hypertension; asthma; former smoker; dilated cardiomyopathy with most recent echocardiogram showing EF 30-35 percent, grade 3 diastolic dysfunction, right he art failure, moderate mitral valve regurgitation, severe tricuspid regurgitation, severe pul monary hypertension. 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 D enies coronary artery disease, myocardial infarction. In 05/2018, she was admitted with melchor ateral pleural effusions, ascites. Underwent thoracentesis, ultrasound guided, right. Abou t 1.5 L fluid was removed, transudate. Also had 4 L ascitic fluid removed. Has anemia of c hronic kidney disease and chronic thrombocytopenia.At that time, her respiratory FilmArray w as positive for respiratory syncytial virus bronchitis. The patient presented to [facility] with chief complaint of worsening cough, shortness of breath, wheezing for the past 3 days. Shortness of breath is noted both with minimal exert ion and orthopnea. It was preceded by URI symptoms with acute rhinitis, sore throat. Cough is productive with yellowish sputum. Denies hemoptysis. Today, she noted fever with chill s. She went for dialysis. After about one and a half hours, she had worsening cough and th erefore dialysis was stopped and she was sent to the ED. She also reported having substerna l chest pain, described as chest tightness, 7/10 intensity for the past 2 days. Constant, l ocalized. No radiation to jaw, arm, neck interscapular area and had associated shortness of breath. Denied dizziness, lightheadedness, syncope, pleuritic chest pain. No worsening ed ton in the lower extremities. Did not try any pain relieving methods at home. No prior his tory of DVT or PE. No recent travel. No tenderness calves. No ripping, tearing chest, abd ominal or back pain. No lifting of unusual weights. No associated neurological symptoms. The patient felt that her ascites is worsening and has on and off mild upper abdominal pain, 6/10 intensity. Has some nausea, but denies any vomiting, constipation, diarrhea, GI bleed . Denies any GERD symptoms, trauma to the abdomen. She makes very little urine and is dial ysis dependent. Reports compliance with salt and fluid intake and dialysis sessions. Workup in their emergency room showed she was febrile at 101.7, tachycardic in the 139. Re spiratory rate was only 20. Blood pressures were elevated 177/120. Laboratory workup showe d pancytopenia, white count of 3. Chronic stable anemia, H and H 10.5 and 31. Chronic thro mbocytopenia 134, improved. Now CMP showed GFR of 8. No hyperkalemia or metabolic acidosis or hyponatremia. Chest x-ray reported cardiomegaly, slight interval decrease in the large right pleural effusion compared to previous exam. Also mentioned accompanying loss of right hemidiaphragm visualization consistent with underlying airspace disease. Mild interstitial edema. Elevated pulmonary venous pressures and pulmonary hypertension. Blood cultures wer e sent. Empirically, Rocephin was administered. Lactic acid was normal. The patient was transferred to [facility] for dialysis and treatment of pneumonia. Rest of the laboratory workup showed influenza was negative for A and B. White count was 3, H and H 10 and 31, platelet count 134, neutrophils 66 percent. No bands. CMP showed sodium of 136, potassium 4.9, chloride 97, bicarbonate 24, BUN of 40, creatinine is 6.47, GFR of 8, glucose 92, lactic acid 0.8, calcium 9.6, total bilirubin 1.4, AST 33, ALT 4 1, alk phos 138, total protein 7.1, albumin 4.0, globulin 3.1. The patient upon arrival her e was hypoxic 86 percent on room air. On 2 L, white at rest, now saturating 96 percent. Ta chycardia improved, remains afebrile. Hospitalist Service consulted to admit. REVIEW OF SYSTEMS Review of Systems GENERAL: Weight is stable. Appetite fluctuates. Today, had fever with chills. HEENT: Mild headache for the past 3 days. No photophobia. No history of migraine headach es. No trauma to the head. No blurred vision, diplopia, vertigo. No thrush, aspiration. NECK: No neck pain or neck stiffness. LUNGS: Has had cough productive with yellowish sputum, wheezing, shortness of breath and f ormer smoker. History of asthma, mild intermittent. HEART: Has some substernal chest pain and has chronic systolic and diastolic heart failure . Denies any peripheral edema. Has some orthopnea and dyspnea. ABDOMEN: Feels her ascites fluid is back again. Has mild diffuse abdominal pain on and of f, 6/10 intensity. Not distended. No constipation or diarrhea. No nausea or vomiting. GENITOURINARY: Hemodialysis dependent, very little urine. NEUROLOGICAL: No history of TIA, strokes, seizures. No new focal neurological symptoms of motor weakness, paresthesias. PSYCHIATRY: Anxiety, depression. EXTREMITIES: Bilateral lower extremity, mild edema, not changed. No pain, swelling, redne ss, tenderness of the calves. SKIN: No rash. GYNECOLOGIC: Last menstrual period is more than a year ago. Urine for test is p ending. Past Medical History Diagnosis Date Anemia Arthralgia [...] Location: [facility]; Service: Vascula r; Laterality: Left; cephalic AV FISTULA REPAIR Left 03/07/2014 Procedure: AV FISTULA - GRAFT REPAIR/REVISION; Surgeon: Rik Simon MD; Location: [facility]; Service: Vascular; Laterality: Left; DECLOT GRAFT Left 03/07/2014 Procedure: GRAFT - DECLOT; Surgeon: Rik Simon MD; Location: [facility]; Service: Vas cular; Laterality: Left; DIALYSIS [facility]; Service: Vascular; Laterality: Left; Allergies Allergen Reactions Fentanyl Itching Iodinated Diagnostic Agents Itching Pt c/o face itching during fistulagram Morphine Rash Ritalin [Methylphenidate Hcl] Other (See Comments) Patient says skin was crawling Tape [Adhesive Tape] Rash Use silk tape only Prior to Admission medications Medication Sig Start Date End Date Taking? Authorizing Provider clopidogrel (PLAVIX) 75 MG tablet Take 75 mg by mouth daily. Indications: Treatment to Prev ent a Blood Clot in a Vascular Stent Yes Historical Provider metoprolol (TOPROL-XL) 25 MG 24 hr tablet Take 2 tablets by mouth daily. 06/28/18 06/28/19 Joaquim bassett Gretchen Huertas KRISHNA Teran ondansetron (ZOFRAN) 8 MG tablet Take 8 mg by mouth every 6 (six) hours as needed for Nause a. Yes Historical Provider pantoprazole (PROTONIX) 40 MG tablet Take 1 tablet by mouth every morning before breakfast for 60 days. 06/02/18 08/01/18 Yes Darell Kowalski MD sevelamer (RENVELA) 800 MG tablet Take 2 tablets by mouth 3 (three) times daily with meals. 06/01/18 06/01/19 Yes Darell Kowalski MD valsartan (DIOVAN) 40 MG tablet Take 1 tablet by mouth daily. 06/14/18 06/14/19 Yes Carolina coppola DO ipratropium-albuterol (DUO-NEB) 0.5-2.5 mg/3mL Take 3 mLs by nebulization. Historical Pr ovider promethazine (PHENERGAN) 25 MG tablet Take 25 mg by mouth every 6 (six) hours as needed for Nausea. Historical Provider Family History Problem Relation Age of Onset [...] on file Social History Narrative Lives in [facility], [facility], 2 wks ago fell at home , tripped , no loc , no injuries, full co de History Smoking Status Former Smoker Packs/day: 0.50 Years: 2.00 Quit date: 06/28/2016 Smokeless Tobacco Never Used History Alcohol Use No History Drug Use Types: Marijuana Comment: 10.5 gm daily, trying to switch to edibles PHYSICAL EXAM Vital Signs: BP (!) 163/108 (BP Location: Right upper arm) | Pulse 118 | Temp 98.5 F (36.9 C) (Ora l) | Resp 20 | Wt 68.9 kg (151 lb 12.8 oz) | SpO2 94% | ? No | BMI 23.78 k g/m Physical Exam GENERAL: The patient is normal built, alert, oriented times 4, nontoxic. While sitting up in bed and at rest, she is saturating 96 percent on 2 L. Able to speak in complete sentenc es. No respiratory distress. HEENT: Atraumatic, normocephalic. Pupils equal and reactive to light. Anicteric. Moist oral mucosa. No thrush. NECK: Supple. Has elevated JVD. No rigidity. LUNGS: Decreased breath sounds on the right. Right upper lobe and left lung has coarse br eath sounds. No wheezing. No use of accessory muscles of respiration. HEART: Regular rate and rhythm. Tachycardic. Murmur or mitral valve and tricuspid valve present. No gallop. No rub. No chest wall tenderness. ABDOMEN: At this time nontender. Possible has some ascites. No guarding or rigidity. So ft. Bowel sounds present. EXTREMITIES: Bilateral lower extremities, left arm fistula present. No signs of infection . No thrombosis. Bilateral lower extremities, only trace ankle edema present. DPA 2+ symm etric. NEUROLOGICAL: Grossly nonfocal. PSYCHIATRY: Not delirious. SKIN: No decubitus ulcer, but on the feet she is noted to have tiny petechiae, hemorrhages . DATA No results found for this or any previous visit (from the past 24 hour(s)). ECHO outside interpretation standard Impression 1. Overall left ventricular systolic function is moderate-severely impaired with , an EF between 30 - 35 %. 2. Restrictive LV diastolic filling pattern, consistent with elev ated LA pressure and severe dysfunction (grade III). 3. There is paradoxical/dysynergic sept al motion consistent with right ventricular volume overload and/or elevated right ventricula r end-diastolic pressure. 4. Moderate mitral regurgitation is present. 5. Severe tricuspid r egurgitation present. 6. There is severe pulmonary hypertension. 7. Bowing of interatrial se ptum to the left, consistent with elevated right side pressures. No results found for this or any previous visit (from the past 24 hour(s)). [employer]: Authenticated by: René Noonan MD Report Date/Time: -- [id number] PROBLEM LIST Principal Problem: Sepsis (HCC) Active Problems: ESRD on hemodialysis SOB (shortness of breath) Moderate to severe pulmonary hypertension (HCC) Non-rheumatic mitral regurgitation Dilated cardiomyopathy (HCC) Acute hypoxemic respiratory failure (HCC) Pleural effusion on right Chronic right-sided heart failure (HCC) Essential hypertension Pancytopenia (HCC) Chest pain Other ascites Troponin I above reference range ASSESSMENT & PLAN Acute hypoxic respiratory failure, most likely etiology is right pleural effusion, intersti tial edema and possible has right lung pneumonia. We will order noncontrast CT scan of the chest for pneumonia as chest x-ray was not well obvious pneumonia. Ordered procalcitonin le vels. Cultures sent from [facility] need to be followed. Ordered methicillin-resistant Staphylococcus aureus screen and cefepime. Septic lactic acid ordered. Substernal chest pain, need to rule out acute coronary syndrome. Ordered telemetry, serial troponins. If we rules out, she can undergo stress test when medically stable. End-stage renal disease, on maintenance hemodialysis Monday, Monday, Monday. Today, on ly half session dialysis was completed. Morning hospitalist to consult Dr. Pabon to arrange for hemodialysis in the morning. Severe pulmonary hypertension in the setting of systolic and diastolic heart failure, randall l valve regurgitation, pulmonary hypertension, severe tricuspid regurgitation and right hear t failure. The patient has both right and left heart failure. Continue metoprolol and losa rtan. We will need hemodialysis to be arranged in the morning. Wean oxygen as tolerated. We need home O2 assessment prior to discharge. Essential hypertension. Resume home blood pressure medications and we will add IV labetalo l and hydralazine as needed for systolic blood pressures greater than 160 and 180 respective ly. 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 May need ultrasound-guided paracentes is while in the hospital. Pancytopenia, leukopenia secondary to infection. Chronic stable anemia and thrombocytopeni a. Deep venous thrombosis prophylaxis with subcutaneous heparin ordered. Addendum: 3:10am Troponin is abnormal : possible demand ischemia . Trend the troponin. Consult cardiology in am. Continue plavix, metoprolol, add statin. Disposition: acute care Code Status: Full code Primary Care Physician: TIEN MCKAY MD 07/18/2018 documented in this e ncounter Procedure Notes Yudy Patel ARNP - 07/21/2018 10:52 AM PDTFormatting of this note might be different fr om the original. Procedures by KRISHNA Nice at 07/21/18 1052 Author: KRISHNA Nice Service: Radiology Author Type: Advanced Registered Nurse P tejaser Filed: 07/21/18 1053 Date of Service: 07/21/18 105 Status: Signed Nurse Assistant: KRISHNA Nice (Advanced Registered Nurse Practitioner) Pre-procedure Diagnoses: 1. Pleural effusion [J90] Post-procedure Diagnoses: 1. Pleural effusion [J90] Procedures: 1. THORACENTESIS [ICD430 (Custom)] U/S guided thoracentesis performed on the right side 1500 mL of hazy, dai fluid removed Patient tolerated procedure well, vital signs remained stable throughout procedure. No imm ediate post procedural complications encountered. Post CXR ordered See dictation for full details KRISHNA Nice 07/21/2018 10:53 AM illie Gupta MD - 07/20/2018 9:50 AM PDT Procedures by Billie Gupta MD at 07/20/18 0950 Author: Billie Gupta MD Service: Nephrology Author Type: Physician Filed: 07/20/18 0955 Date of Service: 07/20/18 0918 Status: Signed Nurse Assistant: Billie Gupta MD (Physician) Procedure Orders: 1. Hemodialysis [[id number]] ordered by Billie Gupta MD at 07/20/18 0859 [facility] Hemo-Dialysis Procedure note Pt is seen on Dialysis. Indication for Dialysis: ESRD for Clearance and UF Review of Systems: On dialysis, the patient Is resting comfortably. Labs: Lab Results Component Value Date BUN 32 (H) 07/20/2018 CREATININE 5.65 (H) 07/20/2018 EGFR 9 (L) 07/20/2018 NA 138 07/20/2018 K 6.2 (H) 07/20/2018 CL 98 (L) 07/20/2018 CO2 25 07/20/2018 CA 9.7 07/20/2018 PHOS 8.0 (H) 07/20/2018 MG 2.6 (H) 07/19/2018 ALB 4.7 07/20/2018 WBC 6.36 07/20/2018 HGB 12.8 07/20/2018 PLT 157 07/20/2018 Physical Exam Blood pressure 129/73, pulse 88, temperature 97.8 F (36.6 C), temperature source Oral, resp. rate 20, height 1.702 m (5' 7"), weight 64.9 kg (143 lb 1.3 oz), SpO2 100 %, not curre ntly . QB 400 AP -230 Building Specialist 200 Constitutional: pt appears without distress. Cardiovascular: Normal rate. Exam reveals no gallop and no friction rub. Pulmonary/Chest: Effort normal. No stridor. No respiratory [...] Modifications to orders: none Billie Gupta MD 07/20/2018 documented in thi s encounter Consult Notes Antonio Pabon MD - 07/19/2018 9:40 AM PDTFormatting of this note might be different from t he original. Consult* by Antonio Pabon MD at 07/19/18939 Author: Antonio Pabon MD Service: Nephrology Author Type: Physician Filed: 07/19/18 8123 Date of Service: 07/19/18939 Status: Signed Nurse Assistant: Antonio Pabon MD (Physician) [facility] Service: NEPHROLOGY CONSULT Note Dara Louise 23 y.o. [id number] female [place] Day: LOS: 0 days Date of Consultation: 07/19/2018 Requesting Physician: Hospitalist Reason for CONSULTATION: ESRD History Obtained From: patient, care team, [...] as paracentesis at that time, chronic thrombocytopenia presented to [facility] emergency room with chief complaints of worsening s hortness of breath along with cough and wheezing going on for the last 3 days. It was prece ded by upper respiratory infection patient has acute rhinitis and sore throat along with pro ductive cough of yellowish phlegm but no hemoptysis. Patient also had fever and chills went for her dialysis as an outpatient after 1-1/2 hours she has a bout of worsening cough dialy sis was stopped and sent patient to the emergency room. Patient also has substernal chest p ain with coughing along with shortness of breath as well as mild nausea. Denies any dizzine ss, lightheadedness syncope no worsening lower extremity edema, vomiting, diarrhea. Patient does complain of abdominal discomfort/pain with nausea. Labs done showed this morning hyperkalemia potassium 5.6 sodium 136 chloride 98 creatinine 7.[address] chest done showed right-sided pleural effusion Nephrology consulted for evaluation and management of ESRD ONSET Chronic severity severe Associated with fluid electrolyte acid base imbalances Assess need for hd/uf Review of Systems 10 point ROS DONE NEGATIVE EXCEPT LISTED ABOVE Past Medical History Diagnosis Date Anemia Arthralgia [...] FISTULA; Surgeon: Rik Simon MD; Location: [facility] OR; Service: Vascula r; Laterality: Left; cephalic AV FISTULA REPAIR Left 03/07/2014 Procedure: AV FISTULA - GRAFT REPAIR/REVISION; Surgeon: Rik Simon MD; Location: [facility]; Service: Vascular; Laterality: Left; DECLOT GRAFT Left 03/07/2014 Procedure: GRAFT - DECLOT; Surgeon: Rik Simon MD; Location: [facility] OR; Service: Vas cular; Laterality: Left; DIALYSIS FISTULA CREATION N/A 04/08/2014 Procedure: DIALYSIS CATHETER - INSERTION; Surgeon: Rik Simon MD; Location: [facility]IN OR ; Service: Vascular; Laterality: N/A; tunneled catheter LAPAROSCOPIC PERITONEAL DIALYSIS CATHETER INSERTION x2 LAPAROSCOPIC PERITONEAL DIALYSIS CATHETER INSERTION Right 07/2013 current dialysis access MWF dialysis RENAL BIOPSY RENAL BIOPSY Left 2003 SUPERFICIALIZATION OF AV FISTULA Left 06/24/2014 Procedure: AV FISTULA - SUPERFICIALIZATION; Surgeon: Rik Simon MD; Location: [facility] OR; Service: Vascular; Laterality: Left; [...] on file Social History Narrative Lives in [place], 2 wks ago fell at home , [...] sevelamer 1,600 mg Oral TID WC sodium chloride (PF) 10 mL Intravenous Q8H valsartan 40 mg Oral Daily Continuous Infusions PRN Medications acetaminophen OR acetaminophen, hydrALAZINE, labetalol, morphine OR morphine, ondan setron OR ondansetron, polyethylene glycol Allergy: Allergies Allergen Reactions Fentanyl Itching Iodinated Diagnostic Agents Itching Pt c/o face itching during fistulagram Morphine Rash Ritalin [Methylphenidate Hcl] Other (See Comments) Patient says skin was crawling Tape [Adhesive Tape] Rash Use silk tape only OBJECTIVE Vital Signs: BP (!) 144/98 (BP Location: Right upper arm) | Pulse 105 | Temp 97.9 F (36.6 C) (Axil abi) | Resp 20 | Ht 1.702 m (5' 7") | Wt 67.1 kg (147 lb 14.9 oz) | SpO2 93% | Breastf eeding? No | BMI 23.17 kg/m I&O Detailed Table: I/O last 3 completed shifts: In: 500 [P.O.:500] Out: - Weight change: Examination: APPEARANCE: The patient is a pleasant lying in the bed in no apparent distress. VITALS: Reviewed as listed. HEAD: NC/AT. EYES: EOMI. Non-icteric sclera. ENT: Buccal mucosa is moist. No gross ear or nasal problems noted. NECK: Supple. No raised JVD LUNGS: Decreased breath sounds at the right base HEART: S1, S2, no pericardial rub noted. ABDOMEN: Full, soft, +ve tenderness diffuse no rebound tenderness or guarding noted. EXTREMITIES: trace pedal edema noted. No cyanosis or clubbing. Peripheral pulses palpable SKIN: Warm to touch. No rash noted. NEUROLOGIC: No gross focal motor deficit noted. PSYCH: The patient is alert and oriented x 3, mood and affect looks ok, memory seems to be intact. L arm avf +ve thrill/ bruit LABS: Recent Results (from [...] AM Result Value Ref Range LACTIC ACID <0.1 (L) 0.4 - 2.0 mmol/L CBC W/Auto Diff [...] I 0.102 (H) 0.00 - 0.04 ng/mL IMAGING: Ct Chest Without Contrast Result Date: 07/19/2018 CT CHEST WITHOUT CONTRAST CLINICAL INFORMATION: Pneumonia. Hypoxia, Febrile illness, Recur rent pleural effusion on right, History of end stage renal disease COMPARISON: CT CHEST WO C ONTRAST (05/26/2018); PROCEDURE: Axial images through the [...] above reference range ASSESSMENT & PLAN HYPERKALEMIA Likely due to incomplete dialysis yesterday, will do 3-hour hemodialysis today Low k diet Watch k level closely Telemetry Lab Results Component Value Date K 5.6 (H) 07/19/2018 K 4.7 06/01/2018 K 4.3 05/31/2018 ESRD ON HD Plan for hemodialysis/ultrafiltration today as patient only did 1-1/2-hour of dialysis yest erday Assess daily for need for hd & [...] (L) 06/01/2018 HGB 10.9 (L) 05/31/2018 HYPERTENSION WATCH BP CLOSELY DURING HOSPITALIZATION LOW NA DIET Will adjust BP meds according to BP readings BP Readings from Last 3 Encounters: 07/19/18 (!) 144/98 06/28/18 134/82 06/14/18 126/80 HYPERPHOSPHATEMIA LOW P DIET RESUME PO4 BINDERS Renvela with meals Lab Results Component Value Date PHOS 6.3 (H) 07/19/2018 PHOS 6.3 (H) 05/28/2018 PHOS 8.0 (H) 05/27/2018 HYPOALBUMINEMIA INCREASE PROTEIN INTAKE Lab Results Component Value Date ALB 3.6 07/19/2018 ALB 3.0 (L) 06/01/2018 ALB 3.0 (L) 05/31/2018 Respiratory failure/right-sided pleural effusion Positive for bilateral influenza 3 Per primary team CASE DISCUSSED IN DETAIL WITH PATIENT/ care team, ANSWERS ALL QUESTIONS IN DETAIL, VERBALIZ ES UNDERSTANDING I thank Dr Mckay for giving me the opportunity to take part in the care of this wagner jaye ent with multiple complex medical problems ANTONIO PABON MD 07/19/2018 TIEN NICHOLSON Seen earlier and charting completed later Dictation software, [employer], used which may contain error for similar sounding words even af ter review. Personal communication requested for any clarification. documented in this enco unter ED Notes Conversion Transaction, Provider Unknown - 07/19/2018 12:26 AM PDTFormatting of this note m ight be different from the original. ED Notes by Adina Kurtz at 07/19/1825 Author: Adina Kurtz Service: (none) Author Type: Wink Cutter Operator Filed: 07/19/1825 Date of Service: 07/19/1825 Status: Signed Nurse Assistant: Adina Kurtz (Wink Cutter Operator) Called Lab to let them know no lab draw in room 4 Adina Kurtz 07/19/1825 Matt Beverly DO - 07/18/2018 11:06 PM PDTFormatting of this note might be different from the or iginal. ED Provider Notes by Matt Gabriel DO at 07/18/182305 Author: Matt Gabriel DO Service: -Emergency Author Type: Physician Filed: 07/19/18 0634 Date of Service: 07/18/182305 Status: Signed Nurse Assistant: Matt Gabriel DO (Physician) [facility] Department of Emergency Medicine 11:06 PM History of Present Illness Patient Identification Dara Louise is a 23 y.o. female. Patient information was obtained from patient. History/Exam limitations: none. Patient presented to the Emergency Department by: Chief Complaint Chief Complaint Patient presents with Pneumonia transfer from [facility] pt was at dialysis, did not finish due to a cough. recieves dialysis M, W, F Pt went to [facility] at 5PM this evening where they found an infection (possibly pneumo dontrell). Pt has history of fluid in her R lung that has worsened recently. Pt does dialysis Mo n, Mon, Mon but only went to 1.5 hours today because of the cough. The patient presents to ED with complaints of cough. Onset of symptoms was 2 days ago, with a constant course since that time. The patient also complains of congestion, fever, chest p ain, sweats. Patient denies any other symptoms at this time. Pt smokes weed but is transitio alexa to [place]. Pt denies smoking. PCP: TIEN NICHOLSON Past Medical History Diagnosis Date Anemia Arthralgia [...] FISTULA; Surgeon: Rik Simon MD; Location: [facility] MAIN OR; Service: Vascula r; Laterality: Left; cephalic AV FISTULA REPAIR Left 03/07/2014 Procedure: AV FISTULA - GRAFT REPAIR/REVISION; Surgeon: Rik Simon MD; Location: [facility] IN OR; Service: Vascular; Laterality: Left; DECLOT GRAFT Left 03/07/2014 Procedure: GRAFT - DECLOT; Surgeon: Rik Simon MD; Location: [facility] OR; Service: Vas cular; Laterality: Left; DIALYSIS [...] SUPERFICIALIZATION; Surgeon: Rik Simon MD; Location: [facility] MAIN OR; Service: Vascular; Laterality: Left; Prior to Admission medications Medication Sig Start Date End Date Taking? Authorizing Provider clopidogrel (PLAVIX) 75 MG tablet Take 75 mg by mouth daily. Indications: Treatment to Prev ent a Blood Clot in a Vascular Stent Yes Historical Provider metoprolol (TOPROL-XL) 25 MG 24 hr tablet Take 2 tablets by mouth daily. 06/28/18 06/28/19 Joaquim bassett Gretchen TyKRISHNA moser ondansetron (ZOFRAN) 8 MG tablet Take 8 mg by mouth every 6 (six) hours as needed for Nause a. Yes Historical Provider pantoprazole (PROTONIX) 40 MG tablet Take 1 tablet by mouth every morning before breakfast for 60 days. 06/02/18 08/01/18 Yes Darell Kowalski MD sevelamer (RENVELA) 800 MG tablet Take 2 tablets by mouth 3 (three) times daily with meals. 06/01/18 06/01/19 Yes Darell Kowalski MD valsartan (DIOVAN) 40 MG tablet Take 1 tablet by mouth daily. 06/14/18 06/14/19 Yes Carolina coppola DO ipratropium-albuterol (DUO-NEB) 0.5-2.5 mg/3mL Take 3 mLs by nebulization. Historical Pr ovider promethazine (PHENERGAN) 25 MG tablet Take 25 mg by mouth every 6 (six) hours as needed for Nausea. Historical Provider Allergies Allergen Reactions Fentanyl Itching [...] on file Social History Narrative Lives in [place], 2 wks ago fell at home , tripped , no loc , no injuries, full co de Family History Problem Relation Age of Onset Heart disease Mother Seizures Mother Hypertension Father Alcohol abuse Father Review of Systems Constitutional: Positive for fever, chills, sweats Eyes: Negative for vision changes Nose: Positive for congestion Negative for nosebleeds Throat: Negative for sore throat CV/Resp: Positive for cough, chest pain Negative for chest pain, umszisipc-ut-nbklan, cough GI: Negative for abdominal pain, nausea, vomiting, or diarrhea : Negative for urinary problems Musculoskeletal: Negative for back pain, joint pain Skin: Negative for rash Neuro/Psych: Negative for headache Endo/heme/Lymph: Negative for swollen lymph nodes, easy bruising All other systems reviewed and negative except as noted. Physical Exam BP (!) 163/108 (BP Location: Right upper arm) | Pulse 118 | Temp 98.5 F (36.9 C) (Ora l) | Resp 20 | Wt 68.9 kg (151 lb 12.8 oz) | SpO2 94% | ? No | BMI 23.78 k g/m Vital signs interpretation: Elevated BP, tachycardic Pulse Oximetry interpretation: Normal General: Alert, in no apparent distress Eyes: Normal inspection, pupils equal and round, non-icteric ENT: Ears normal Nose normal Pharynx normal Neck: Normal inspection Supple Cardiovascular: Rate and rhythm normal No murmurs Respiratory: Decreased air movement R lower lung. Mildly decreased on the L. No rales, wheezing or rhonchi Abdomen: Soft, non-tender, non-distended No guarding or rebound Genitourinary: Deferred Rectal exam: Deferred Back: Normal inspection Skin: Color normal Warm and dry No rash Neuro: Alert, no AMS No gross motor/sensory deficits Medical Decision Making and Emergency Department Course ED Department Course Patient presents to ED with complaints of cough. Blood cultures were collected at outside h ospital. Pt continues to be tachycardic. Will admit due to hypoxia. Results show influenza n egative, lactic acid normal, low WBC, anemia, and low platelets. Pt was febrile and tachycar dic. 11:[address] Mckay, hospitalist, who accepts pt for admission Records Reviewed Old medical records. Nursing notes. Previous ED visits for similar and unrelated complaints. Laboratory Evaluation Results Procedure Component Value Ref Range Date/Time Septic Lactic Acid [[id number]] Collected: 07/19/18609 Order Status: Sent Updated: 07/19/18625 Septic Lactic Acid [[id number]] Collected: 07/19/18 0038 Order Status: Completed Updated: 07/19/18 0100 LACTIC ACID 0.6 0.4 - 2.0 mmol/L I personally reviewed the lab results and they have been posted to the chart. Pertinent po sitive and negative findings have been addressed appropriately. Radiology and EKG Evaluation Imaging Results None ED Diagnoses Final diagnoses Febrile illness Recurrent pleural effusion on right Hypoxia History of end stage renal disease Disposition: ED Disposition ED Disposition Condition Comment Admit/Observation Bed request special needs: None Diagnosis?: febrile illness,right pleural effusion,h/o esrd, Follow-up Information None Discharge Medications: Current Discharge Medication List Procedures Additional Documentation Procedures Attending Provider Note: IMatt DO personally performed the services described i n this documentation, as scribed by Shilpa Monreal in my presence, and it is both accurate and complete. Chart Reviewed and Completed: 07/19/2018 6:34 AM Scribe: Héctor Reyez, scribing for and in the presence of Matt Gabriel DO. Signed by: Héctor Ayers 07/18/2018 11:44 PM Matt Gabriel DO 07/19/18 0634 onversion Transactkalyn mccormack Provider Unknown - 07/18/2018 10:44 PM PDT ED Notes by Tiffanie Guzmán RN at 07/18/182243 Author: Tiffanie Guzmán RN Service: (none) Author Type: Registered Nurse Filed: 07/18/182243 Date of Service: 07/18/182243 Status: Signed Nurse Assistant: Tiffanie Guzmán RN (Registered Nurse) Bed: 04 Expected date: Expected time: Means of arrival: Comments: Tiffanie Guzmán RN 07/18/182243 onver arturo Violetteaction, Provider Unknown - 07/18/2018 9:32 PM PDT ED Notes by Tiffanie Guzmán RN at 07/18/181 Author: Tiffanie Guzmán RN Service: (none) Author Type: Registered Nurse Filed: 07/18/182131 Date of Service: 07/18/182131 Status: Signed Nurse Assistant: Tiffanie Guzmán RN (Registered Nurse) [facility] transfer Tiffanie Guzmán RN 07/18/182131 docume nted in this encounter Miscellaneous Notes Plan of Care - Conversion Transaction, Provider Unknown - 07/24/2018 3:05 AM PDT Plan of Care by Minda Hudson RN at 07/24/18304 Author: Minda Hudson RN Service: (none) Author Type: Registered Nurse Filed: 07/24/18304 Date of Service: 07/24/18304 Status: Signed Nurse Assistant: Minda Hudson RN (Registered Nurse) Problem: Pain Goal: Patient's pain/discomfort is manageable Assess and monitor patient's pain using appropriate pain scale. Collaborate with interdisci plinary team and initiate plan and interventions as ordered. Re-assess patient's pain level approximately 1-2 hours after pain management intervention. Premedicate as needed. Outcome: Progressing Pt reporting 8/10 pain, PRN medication given x2. lan o f Care - Conversion Transaction, Provider Unknown - 07/23/2018 4:01 PM PDTFormatting of thi s note might be different from the original. Plan of Care by Saundra aHrtley RN at 07/23/181600 Author: Saundra Hartley RN Service: (none) Author Type: Registered Nurse Filed: 07/23/181600 Date of Service: 07/23/181600 Status: Signed Nurse Assistant: Saundra Hartley RN (Registered Nurse) Problem: Safety [...] been free of injury/fall during shift. Pt stable and independent in the room. Pt oly ls appropriately for assistance. Bed in lowest position, wheels locked, side rails up x2. Pt has non-skid socks on and call light within reach. Hourly rounding performed to assess for pt needs. lan o f Care - Conversion Transaction, Provider Unknown - 07/22/2018 8:06 PM PDTFormatting of thi s note might be different from the original. Plan of Care by Shannon Martell RN at 07/22/182005 Author: Shannon Martell RN Service: (none) Author Type: Registered Nurse Filed: 07/22/182005 Date of Service: 07/22/182005 Status: Signed Nurse Assistant: Shannon Martell RN (Registered Nurse) Problem: Safety Goal: Patient [...] and non-skid footwear provided. Outcome: Progressing Patient is AAO x 4. Fall risk signage outside door. Walking paths in room are uncluttered w ith adequate lighting. Call light and overbed table within reach. Wheels locked and x2 side rails up. Non-skid footwear is on patient. lan o f Care - Conversion Transaction, Provider Unknown - 07/22/2018 10:27 AM PDTFormatting of thi s note might be different from the original. Plan of Care by Rafaela Patel RN at 07/22/18 1027 Author: Rafaela Patel RN Service: (none) Author Type: Registered Nurse Filed: 07/22/18 1027 Date of Service: 07/22/181026 Status: Signed Nurse Assistant: Rafaela Patel RN (Registered Nurse) Problem: Safety Goal: Patient [...] policy, and non-skid footwear provided. Outcome: Progressing Non-skid socks on, call light in reach. lan o f Care - Conversion Transaction, Provider Unknown - 07/22/2018 12:17 AM PDTFormatting of thi s note might be different from the original. Plan of Care by Priti Priest RN at 07/22/1816 Author: Priti Priest RN Service: (none) Author Type: Registered Nurse Filed: 07/22/1816 Date of Service: 07/22/1816 Status: Signed Nurse Assistant: Priti Priest RN (Registered Nurse) Problem: Pain Goal: Patient's pain/discomfort is manageable Assess and monitor patient's pain using appropriate pain scale. Collaborate with interdisci plinary team and initiate plan and interventions as ordered. Re-assess patient's pain level approximately 1-2 hours after pain management intervention. Premedicate as needed. Outcome: Progressing Pt is able to verbalize pain on 0-10 scale Problem: Daily Care Goal: Daily care needs are met Assess and monitor ability to perform self care and identify potential discharge needs. Outcome: Progressing Pt independent with adl's lan o f Care - Conversion Transaction, Provider Unknown - 07/21/2018 7:24 AM PDTFormatting of thi s note might be different from the original. Plan of Care by Francesca Bustos RN at 07/21/18723 Author: Francesca Bustos RN Service: (none) Author Type: Registered Nurse Filed: 07/21/18723 Date of Service: 07/21/18723 Status: Signed Nurse Assistant: Francesca Bustos RN (Registered Nurse) Problem: Safety Goal: Patient [...] and non-skid footwear provided. Outcome: Progressing Pt demonstrates good body mechanics and safety awareness at all times and especially during transfers and ambulation. Bed in lowest position. Call light within reach. Pt calls appropr iately. Nonskid socks used when ambulating. lan o f Care - Conversion Transaction, Provider Unknown - 07/20/2018 8:58 PM PDTFormatting of thi s note might be different from the original. Plan of Care by Gris Hawk RN at 07/20/182057 Author: Gris Hawk RN Service: (none) Author Type: Registered Nurse Filed: 07/20/182057 Date of Service: 07/20/182057 Status: Signed Nurse Assistant: Gris Hawk RN (Registered Nurse) Problem: Pain Goal: Patient's pain/discomfort is manageable Assess and monitor patient's pain using appropriate pain scale. Collaborate with interdisci plinary team and initiate plan and interventions as ordered. Re-assess patient's pain level approximately 1-2 hours after pain management intervention. Premedicate as needed. Outcome: Progressing Patient has been using pain scale appropriately. Is aware of PRN medication and will let st aff aware when in need of relief. [facility] Problem: Safety Goal: Patient will be injury [...] policy, and non-skid footwear provided. Outcome: Progressing Patients bed is locked in lowest position with side rails up per policy. Call light and bed side table are within reach. Non-skid footwear provided and in use. [facility] lan o f Care - Conversion Transaction, Provider Unknown - 07/20/2018 5:14 PM PDTFormatting of rosa s note might be different from the original. Plan of Care by Francesca Bustos RN at 07/20/181713 Author: Francesca Bustos RN Service: (none) Author Type: Registered Nurse Filed: 07/20/181713 Date of Service: 07/20/181713 Status: Signed Nurse Assistant: Francesca Bustos RN (Registered Nurse) Problem: Daily Care Goal: Daily care needs are met Assess and monitor ability to perform self care and identify potential discharge needs. Outcome: Progressing All ADL needs are cared for by staff & patient. Pt is included in ADL care decisions. lan o f Care - Conversion Transaction, Provider Unknown - 07/20/2018 5:02 AM PDTFormatting of thi s note might be different from the original. Plan of Care by Nereida Edwards RN at 07/20/18501 Author: Nereida Edwards RN Service: (none) Author Type: Registered Nurse Filed: 07/20/18501 Date of Service: 07/20/18501 Status: Signed Nurse Assistant: Nereida Edwards RN (Registered Nurse) Problem: Pain Goal: Patient's pain/discomfort is manageable Assess and monitor patient's pain using appropriate pain scale. Collaborate with interdisci plinary team and initiate plan and interventions as ordered. Re-assess patient's pain level approximately 1-2 hours after pain management intervention. Premedicate as needed. Outcome: Progressing Patient c/o sharp, abdominal pain that has occurred since this admission. Patient has been receiving IV Dilaudid for this pain but pain is not helped. Upon pain reassessment patient i s found to be asleep. lan o f Care - Conversion Transaction, Provider Unknown - 07/19/2018 8:16 AM PDTFormatting of rosa s note might be different from the original. Plan of Care by Francesca Bustos RN at 07/19/18815 Author: Francesca Bustos RN Service: (none) Author Type: Registered Nurse Filed: 07/19/18815 Date of Service: 07/19/18815 Status: Signed Nurse Assistant: Francesca Bustos RN (Registered Nurse) Problem: Psychosocial Needs Goal: Demonstrates ability to cope with hospitalization/illness Assess and monitor patients ability to cope with his/her illness. Outcome: Progressing Pt given opportunity to express feelings regarding hospital stay, disease process and treat ment plan. Pt demonstrates fair coping skills. Pt has some family & community support. lan o f Care - Conversion Transaction, Provider Unknown - 07/19/2018 3:53 AM PDTFormatting of rosa bassett note might be different from the original. Plan of Care by Alana Prado RN at 07/19/18352 Author: Alana Prado RN Service: (none) Author Type: Registered Nurse Filed: 07/19/18 0655 Date of Service: 07/19/18352 Status: Signed Nurse Assistant: Alana Prado RN (Registered Nurse) Pain Patient's pain/discomfort is manageable Progressing Patient c/o stomach and back pain. Patient states this is chronic and states she does not t carlos pain medicine at home for it. Refusing tylenol. Safety Patient will be injury free during hospitalization Progressing Patient uses call light appropriately, bed locked in lowest position, non-skid socks on, fo llows safety instructions Patient afebrile throughout shift. Patient c/o anxiety, Dr. Mckay ordered one time dose of IV ativan 0.5mg. Patient continues to c/o nausea despite zofran given. Dr. Mckay ordered one time dose of phenergan, awaiting dose from pharmacy. Hourly rounding otherwise uneventful. Chart check completed. Alana Prado RN docume nted in this encounter Plan [...] + + + + | Non- | 3.15 (L) | 3.70 - 5.10 [...] EXTERNAL | | | | performed at [facility];[address] | | LAB | | | | [address];[place], [place] | | | | | | [address] | | | | + + + [...] | | | | | performed at [facility];[address] | | | | | | [address];[place], [place] | | | | | | [address] | | | | + + + [...] + +---------+ + + External Lab: [facility] (07/23/2018 5:32 AM PDT) + + + [...] + + + + | Non- | 3.21 (L) | 3.70 - 5.10 [...] | | | | | performed at [facility] | | | | | | [address] [facility];[place], [place] | | | | | | [address] | | | | + + + [...] EXTERNAL | | | | performed at [facility], [address] | | LAB | | | | [address], | | | | | | [place] [address] | | | | + + + [...] | | | | | performed at [facility], [address] | | | | | | [address], | | | | | | [place], [place] [address] | | | | + + + [...] | EXTERNAL LAB | | not a station supervisor validated sample type for this method. No reference | | | ranges have been established. Testing performed at [facility], [address] | | | [place] [address] FLUID TP SOURCE | | | THORACENTESIS Testing performed at [facility];[address] | | | [address] [address] | | + + + + +---------+ [...] EXTERNAL LAB | | is not a station supervisor validated sample type for this method. No | | | reference ranges have been established. Testing performed at [facility], | | | [address] [facility] [place] [address] | | + + + + +---------+ [...] EXTERNAL LAB | | Testing performed at [facility];[address] [facility];[place] [address] | | + + + + +---------+ [...] EXTERNAL | | | | performed at [facility];[address] | | LAB | | | | [address];[place], [place] | | | | | | [address] | | | | + + + [...] EXTERNAL | | | | performed at [facility];[address] | | LAB | | | | [address];[place] | | | | | | [address] | | | | + + + [...] + +---------+ + + XR Chest 1 Wing 07/21/2018 11:03 AM PDT) + + | Specimen [...] with arms on the | | | [id number] table. Ultrasound was utilized to tk an [...] | | | possibility of "sound alike" hydroelectric production manager errors, addition and/or | | | deletions [...] at the bedside with arms on the [id number]-[id number] | | table. Ultrasound was utilized to [...] recognition system. The possibility of "sound alike" hydroelectric production manager errors, | | addition and/or deletions may [...] system. The possibility of "sound a like" hydroelectric production manager errors, addition and/or deletions may occur. If [...] | | | | | | at [facility], [address] | | | | | | [facility], | | | | | | [place] [address] | | | | | |Testing performed at [facility], [address] [facility], [place] [address] | | | | | | | [...] | | | | | performed at [facility], [address] | | | | | | [address] [facility], | | | | | | [place] [address] | | | | + + + [...] EXTERNAL | | | | performed at [facility];[address] | mmol/L | LAB | | | | [address];[place], [place] | | | | | | [address] | | | | + + + [...] guidance. | | | Signed by: Eliza Bustos Shawn Sign Date/Time: 07/20/2018 11:43 AM | | [...] | | | Patient | performed at [facility];[address] | | LAB | | | | [address];[place], [place] | | | | | | [address] | | | | + + + + + + + + | Specimen | + + | | + + + +---------+ + + | Performing | Address | City/State/Zipcode | Phone Number | | Organization | | | | + +---------+ + + | EXTERNAL LAB | | | | + +---------+ + + [facility] INR (07/20/2018 6:25 AM PDT) + + [...] | | | | | performed at [facility] | | | | | | [address];[place], [place] | | | | | | [address] | | | | + + + [...] + + + + | Non- | 3.57 (L) | 3.70 - 5.10 [...] | | | Estimate | performed at [facility];[address] | | LAB | | | | [address];[place] | | | | | | [address] | | | | + + + [...] | | | | | performed at [facility] | | | | | | [address];[place], [place] | | | | | | [address] | | | | + + + [...] at | | | | | | [facility];[address] [place] [address] | | | | | | [facility];[place] [address] | | | | + + + [...] | | | | | performed at [facility];[address] | | | | | | [facility];[place], [place] | | | | | | [id number] ON 07/19 | | | | | [...] at | | | | | | [facility];[address] [facility] | | | | | | [facility];[place] [address] | | | | + + + [...] +---- + + + | Non- | 3.20 (L) | 3.7 0 - [...] | | | | | | at [facility], [address] | | | | | | [facility], | | | | | | [place] [address] | | | | | |Testing performed at [facility], [address] [place] [address] | | | | | | | [...] | | | | | [place] [address] | | | | + + + [...] EXTERNAL | | | | performed at [facility], [address] | | LAB | | | | [address], | | | | | | [place] [address] | | | | + + + [...] | | | | | performed at [facility], [address] | | | | | | [address], | | | | | | [place] [address] | | | | + + [...] NEGATIVE Testing | | | performed at [facility];[address] [facility];[place] [address] | | + + + + +---------+ [...] Testing performed at | | | [facility], [address] [place] [address] | | + + + + +---------+ [...] EXTERNAL | | | | performed at [facility];[address] | mmol/L | LAB | | | | [address];[place] | | | | | | [address] | | | | + + + [...] | | | | | | at [facility] [facility] | | | | | | vd;[place] [address] | | | | + + + [...] at | | | | | | [facility];[address] [place] [address] | | | | | | [facility];[place] [address] | | | | + + + [...] | | | QUALITATIVE | performed at [facility];[address] | | LAB | | | | Nica Oropeza;[place] | | | | | | [address] | | | | + + + [...]
--- OUTSIDE RECORDS SUMMARY | ~2019-12-21 | XMS | Encounter Summary ---
Demographics + + + | Address | [address] | | | [place] [address] | + + + | Home Phone [...] | | | | | [place] [address] | | + + + + + | Thania Mallory | ECON | [address] | | | | | [place] [address] | | + + + + + | Deidra Weldon | ECON | [address] | | | | | [place] | | | | | [address] | | + + + + + Care Team Providers + +------+ + | Care Acute Specialist Name | Role | Phone | [...] | | | [address] | [facility] | | | | | [place], | [place], [place] | | | | | [place] [address] | [address] | | | | | [phone] | | | +--------+ + + + [...] unit and sent to be scanned into [employer]. 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
--- OUTSIDE RECORDS SUMMARY | ~2019-12-21 | XMS | Encounter Summary ---
Demographics + + + | Address | [address] | | | [place] [address] | + + + | Home Phone [...] | | | | | [place] [address] | | + + + + + | Thania Mallory | ECON | [address] | | | | | [place] [address] | | + + + + + | Deidra Weldon | ECON | [address] | | | | | [place] | | | | | [address] | | + + + + + Care Team Providers + +------+ + | Care Toll Test Desk Worker Name | Role | Phone | [...] 2013 | | Transplant Services | PRODUCT CONSULTANT [place], [place] | Update | | | | [address] | [address] | | | | | [place], | | | | | | [place] [address] | | | | | | [phone] | | | +--------+ + + + [...] Denise | | | | | | [place], [place] | | | | | | [address] | | | | | | [phone] | | | | | | | | +--------+ + + + + documented as of this encounter Visit Diagnoses Not on filedocumented in this encounter"
--- OUTSIDE RECORDS SUMMARY | ~2019-12-21 | XMS | Encounter Summary ---
Demographics + + + | Address | [address] | | | [place] [address] | + + + | Home Phone [...] | | | | | [place] [address] | | + + + + + | Thania Mallory | ECON | [address] | | | | | [place] [address] | | + + + + + | Deidra Louise | ECON | [address] | | | | | [place] | | | | | [address] | | + + + + + Care Team Providers + +------+ + | Care Personal Banking Assistant Name | Role | Phone | [...] | | | | (HCC) [facility] | [place] | [place] | | | | | (Amelie | [address] | [place] | | | | | nlein | [place], [place] | Children's | | | | | purpura) | [address] | [address] | | | | | nephritis | Phone: | Floor | | | | | (HCC) | [phone] | [place], [place] | | | | | Hemodialysis | Fax: | [address] | | | | | status | [phone] | Phone: | | | | | (HCC) | | [phone] | | | | | Chronic | | Fax: | | | | | kidney | | [phone] | | | | | disease, | [...] [facility] | | | | | [address] [place], | [place], [place] | | | | | [place] [address] | [address] | | | | | [phone] | | | +--------+ + + + [...] does not have funds to remain in [place] for one month and transportati on post transplant. Sent message to social worker palliative care to discuss with the family options for ge [employer] financial assistance including contacting KRISTI. Mother appreciative [...] Denise | | | | | | [place], [place] | | | | | | [address] | | | | | | [phone] | | | | | | | [...] [facility]) | | + +------+--------+ + [...] 2:35 PM PST Echocardiography Laboratory | | [address] | | [place] [address] | | ; | | [id number] | | | | Transthoracic Echocardiogram Report | | | | | | NAME: DARA LOUISE Study Date: 01/20/2015 1:18:29 PM | | Order #: [id number] ACC #: [id number] | | | | | | : [...] on 01/20/2015 at 2:35:17 PM | | Health Support Specialist: YARITZA KLINE RD | | | | | | cc: | | | | | | Modes utilized | | TTE 90139; Spectral Doppler 10441; Color flow Doppler 57782; | | | | | | | | Final | + + + + + + + | Performing | Address | City/State/Zipcode | Phone Number | | Organization | | | | + + + + + | [facility] | [address] | [place], [place] | | | CARDIOLOGY | [address] | [address] | | + + + + + [...] + + | [facility] | [address] | [place] [address] | | | SERVICES, SPECIAL | LONG [...] + + | TILA | [address] | [place] [address] | | | DIAGNOSTIC | [address] [...] | | QUAL, SERUM | | | [place] | | + + + + + + + + | Specimen | + + | Blood - Blood | + + + + + + + | Performing | Address | City/State/Zipcode | Phone Number | | Organization | | | | + + + + + | [facility] - | [address] | [place] [address] | | | [facility] | | | | + + + [...] + | [facility] - | [address] | [place] [address] | | | [place] | | | [...] + | [facility] | [address] | [place] [address] | | | [place] | | | [...] + | [facility] | [address] | [place] [address] | | | [facility] | | | | + + + [...] by | | | | | | [employer],[address] | | | | | | [address], [facility] | | | | | | [address] | | | | | | [phone].[email or web address]. | | | | | | Faisal [...] [facility] | [address] | [place], [place] | | | [facility] | | [address] | | + + + + + [...] + | [facility] | [address] | [place] [address] | | | [place] | | | | + + + [...] [place] | | | | | | [address] | | | | | | [phone].aruplab. | | | | | | Faisal [...] [facility] | [address] | [place], [place] | | | [facility] | | [address] | | + + + + + [...] [facility] | [address] | [place] [address] | | | SERVICES, CORE | PARK [...] | + + + + + | [facility] | [address] | [place] [address] | | | SERVICES, CORE | LONG [...] | + + + + + | [facility] | [address] | [place] [address] | | | SERVICES, CORE | [address] | | | + + + + + MAGNESIUM, PLASMA (01/20/2015 9:59 AM PST) + +-------+ + + + | Component | Value | Ref Range | Performed | Pathologist | | | | | At | Signature | + +-------+ + + + | MAGNESIUM,P | 2.3 | 1.8 - 2.5 mg/dL | [facility] | | | LASMA | | | [...] [facility] | [address] | [place] [address] | | | SERVICES, CORE | PARK [...] | + + + + + | [facility] | [address] | [place] [address] | | | SERVICES, CORE | PARK [...] | | | LABORATORY | | | [place] | | | SERVICES, | | | [...] | + + + + + | [facility] | [address] | [place] [address] | | | SERVICES, CORE | LONG [...] kidney | + + | Hemodialysis status ([facility]) Renal dialysis status | + + | Chronic kidney disease, stage V ([facility]) Chronic kidney disease, Stage V | + + documented in this encounter"
--- OUTSIDE RECORDS SUMMARY | ~2019-12-21 | XMS | Encounter Summary ---
Demographics + + + | Address | [address] | | | [place] [address] | + + + | Home Phone [...] Author + + + | Author | [facility] | | | and [place] | + + + | Organization | [facility] | | | [...] Providers + +------+ + | Care Assistant Director Of Financial Aid Name | Role | Phone | [...] [address] | | | | | [place], [place] | [place] [address] | | | | | [address] | [phone] | | | | | [phone] | | | +--------+ + + + [...]
--- OUTSIDE RECORDS SUMMARY | ~2019-12-21 | XMS | Encounter Summary ---
Demographics + + + | Address | [address] | | | [place] [address] | + + + | Home Phone [...] | | | | | [place] [address] | | + + + + + | Thania Mallory | ECON | [address] | | | | | [place] [address] | | + + + + + | Deidra Weldon | ECON | [address] | | | | | [place] | | | | | [address] | | + + + + + Care Team Providers + +------+ + | Care Clinical Laboratory Scientist Name | Role | Phone | [...] | Clinical | Kelsi Martinez, | Other ([facility]) | | 2015 | | Transplant Services | RN [address] | | | | | [address] | [facility] | | | | | [place], | [place], [place] | | | | | [place] [address] | [address] | | | | | [phone] | | | +--------+ + + + [...] father and stepmother will be moving to [place] in a few months but p t will remain in [place]. Suspect pt will need additional support when [...] [place] | | | | | | [address] | | | | | | [phone] | | | | | | | | +--------+ + + + + documented as of this encounter Visit Diagnoses Not on filedocumented in this encounter"
--- OUTSIDE RECORDS SUMMARY | ~2019-12-21 | XMS | Encounter Summary ---
Demographics + + + | Address | [address] | | | [place] [address] | + + + | Home Phone [...] | Author | [facility] | | | and [place] | + + + | Organization | [facility] | | | [...] Team Providers + +------+ + | Care Bpm Architect Name | Role | Phone | + +------+ + PCP | Unavailable | + +------+ + Encounter Details +--------+ + + + + | Date | Type | Department | Care Team | Description | +--------+ + + + + | 11/21/ | Abstract | [facility] [place] | Ibarra, Daniela W, | | | 2017 | | NEPHROLOGY [address] | MD [address] | | | | | [address] | [address] [place] | | | | | [place], [place] | [place] [address] | | | | | [address] | [phone] | | | | | [phone] | | | +--------+ + + + [...]
--- OUTSIDE RECORDS SUMMARY | ~2019-12-21 | XMS | Encounter Summary ---
[...] | | | | | [place] [address] | | + + + + + | Thania Mallory | ECON | [address] | | | | | [place] [address] | | + + + + + | Deidra Weldon | ECON | [address] | | | | | [place] | | | | | [address] | | + + + + + Care Team Providers + +------+ + | Care Imaging Services Director Name | Role | Phone | [...] ) | | | | [address] [place] | [facility] | | | | | [address] [facility], | [place], [place] | | | | | [place] [address] | [address] | | | | | [phone] | | | +--------+ + + + [...] Denise | | | | | | [place], [place] | | | | | | [address] | | | | | | [phone] | | | | | | | | +--------+ + + + + documented as of this encounter Visit Diagnoses Not on filedocumented in this encounter"
--- OUTSIDE RECORDS SUMMARY | ~2019-12-21 | XMS | Encounter Summary ---
Demographics + + + | Address | [address] | | | [place] [address] | + + + | Home Phone [...] | | | | | [place] [address] | | + + + + + | Thania Mallory | ECON | [address] | | | | | [place] [address] | | + + + + + | Deidra Weldon | ECON | [address] | | | | | [place] | | | | | [address] | | + + + + + Care Team Providers + +------+ + | Care Display Manager Name | Role | Phone | [...] | | | | | [address] [place], | | | | | | [place] [address] | | | +--------+ + + + [...] Denise | | | | | | [place], [place] | | | | | | [address] | | | | | | [phone] | | | | | | | [...] [facility] - | [address] | [place] [address] | | | IMMUNOGENETICS/TRANS | [address] | | | | [facility] | | | | + + + + + documented in this encounter Visit Diagnoses Not on filedocumented in this encounter"
--- OUTSIDE RECORDS SUMMARY | ~2019-12-21 | XMS | Encounter Summary ---
Demographics + + + | Address | [address] | | | [place] [address] | + + + | Home Phone [...] | | | | | [place] [address] | | + + + + + | Thania Mallory | ECON | [address] | | | | | [place] [address] | | + + + + + | Deidra Weldon | ECON | [address] | | | | | [place] | | | | | [address] | | + + + + + Care Team Providers + +------+ + | Care Cotton Baler Name | Role | Phone | [...] | | | | [address] | [address] | | | | | | [place] | floor | | | | | | [place], | [place], [place] | | | | | | [place] | [address] | | | | | | [address] | Phone: | | | | | | Phone: | [phone] | | | | | | [phone] | | | | | | | Fax: | | | | | | | [phone] | | +--------+--------+ + + + + Encounter Details +--------+---------+ + + + | Date | Type | Department | Care Team | Description | +--------+---------+ + + + | 05/24/ | Office | Specialty Clinics | Sudhakar Joy | [facility] | | 2017 | Visit | at [facility] [address] | DMD [address] | (David | | | | [address] | [address] | purpura) nephritis | | | | [place] | [place], [place] | (Primary Dx); Anemia | | | | [facility], | [address] | of chronic kidney | | | | 7th floor | [phone] | failure, stage 5 | | | | [place], [place] | | ([facility]) | | | | [address] | | | | | | [phone] | | | +--------+---------+ + + + [...] not be referred for transplant. Her adult packing and final assembly supervisor could refer her to adult transplant when [...] [facility] Mail code [facility] [place], [place] [address] documented in this encounter Plan of Treatment +--------+ + + + + | Date | Type | Specialty | Care Team | Description | +--------+ + + + + | 05/04/ | Hospital | Adult Acute Care | El Starr MD | | | 2022 | Encounter | | [address] | | | | | | [place], [place] | | | | | | [address] | | | | | | [phone] | | | | | | | [...]
--- OUTSIDE RECORDS SUMMARY | ~2019-12-21 | XMS | Encounter Summary ---
Demographics + + + | Address | [address] | | | [place] [address] | + + + | Home Phone [...] Team Providers + +------+ + | Care Shift Superintendent Caustic Cresylate Name | Role | Phone | + [...] + + | 01/07/ | Hospital | [facility] | Florian Nelson, | Hyperkalemia | | 2019 - | Encounter | [facility] | [address] | (Primary Dx); ESRD | | | | CARE FLOOR [address] | [place] [address] | needing dialysis | | 01/10/ | | [address] | [phone] | ([facility]); Acute | | 2019 | | [place], [place] | | respiratory | | | | [address] | Megan Martínez DO | distress; Recurrent | | | | [phone] | [address] | right pleural | | | | | [place] [address] | effusion; Anemia in | | | | | [phone] | ESRD (end-stage | | | | | | renal disease) | | | | | Nicholas Sutton MD | ([facility]); At high risk | | | | | [address] | for electrolyte | | | | | [place] [address] | imbalance; Chronic | | | | | [phone] | 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 | | | | | Piedad Mosquera MD | failure ([facility]); | | | | | [address] | Dilated | | | | | [place] [address] | cardiomyopathy | | | | | [phone] | ([facility]); ESRD on | | | | | | hemodialysis ([facility]); | | | | | Paty Kline, | Noncompliance; | | | | | [address] | Uncontrolled | | | | | [place] [address] | hypertension | | | | | [phone] | | | | | | | [...] a refill from your regular physician or cable driller. We are always happy to be a [...] the advice of your doctor or health property caretaker. A special MedGuide will be given to you by the pharmacist with each prescription and refill . Be sure to read this information carefully each time. Talk to your environmental programs manager regarding the use of this medicine in children. Special care may be needed. What side effects may I notice from receiving this medicine? Side effects that you should report to your doctor or health property caretaker as soon as p ossible: allergic [...] attention (report to your doctor or health property caretaker if they continue or are bothersome): [...] this medicine? Tell your doctor or health property caretaker if your symptoms do not start [...] dying should be reported to your health property caretaker right away. NOTE:This sheet is a summary. It may not cover all possible information. If you have questi ons about this medicine, talk to your doctor, pharmacist, or health care provider. Copyright 2019 [employer] documented in this encounter Medications at Time [...] renal disease) ([facility]) | protocol | | | [...] was completed later after rounds. Dictation software, Wiser (formerly WisePricer), was used which may contain error for [...] Nereida Tovar RN - 01/09/2019 1:30 PM [id number] Pt c/o chest pain rated 9/10, described [...] orders at this time, however EKG ordered. emergency dept tech called and en route. 1340- EKG shows [...] was completed later after rounds. Dictation software, Wiser (formerly WisePricer), was used which may contain error for [...] Kline DO - 01/09/2019 8:20 AM PST [facility] Adult Hospitalist Progress Note Hospital Day: [...] Hyperkalemia: -Treated in the emergency room at [facility] that he had, potassium now wnl -Secondary [...] of transfusion at this time -Epogen per cable driller GI and DVT prophylaxis Paty Kline DO [...] was completed later after rounds. Dictation software, [employer]iser (formerly [employer]), was used which may contain error for [...] Mora DO - 01/08/2019 7:50 AM PST [facility] Adult Hospitalist Progress Note Hospital Day: [...] Hyperkalemia: -Treated in the emergency room at [facility] that he had, potassium now 5.8 -Secondary [...] of transfusion at this time -Epogen per cable driller Hypoglycemia: -Likely secondary to insulin given for her hyperkalemia and decrease PO intake -Hypoglycemic protocol GI and DVT prophylaxis Paty Kline DO 01/08/2019 Piedad Vega MD - 01/07/2019 7:14 AM PST [facility]: Hospitalist Progress Note Hospital Day: LOS: 0 days SUBJECTIVE Patient Summary: From [facility] Dr. Martínez 01/07/19 The patient is a 23 y.o. female with significant past medical history of HSP nephritis, rig ht pleural effusions recurrent, thoracentesis, bacteremia, clotted hemodialysis catheter, no ncompliance, asthma who presents transferred from [facility] with hyperkalemia, hyperte nsion noncompliant with hemodialysis, [...] life. Patient was treated for hyperkalemia in [facility] as her potassium was 6.8. The data from [facility] was a chest x-ray which [...] for input(s): IRON, TIBC, PCTSAT, FERRITIN, TSH, [id number], FOLATE in the last 168 hours. No [...] Hyperkalemia: -Treated in the emergency room at [facility] that he had, potassium now 5.8 -Secondary [...] of transfusion at this time -Epogen per cable driller Hypoglycemia: -Likely secondary to insulin given for [...] note might be different from dari coleman. [facility]: Hospitalist Admission History & Physical Date [...] no ncompliance, asthma who presents transferred from [facility] with hyperkalemia, hyperte nsion noncompliant with hemodialysis, [...] life. Patient was treated for hyperkalemia in [facility] as her potassium was 6.8. The data from [facility] was a chest x-ray which shows motion [...] Gram-positive bacteria 12/12/2018 Clotted dialysis access ([facility]) 2014 Congestive heart failure ([facility]) ESRD (end stage renal disease) ([facility]) HSP (Henoch-Schonlein purpura) nephritis ([facility]) 1987 Hypertension Pericardial effusion without cardiac tamponade 11/07/2018 PAST SURGICAL HISTORY Past Surgical History: Procedure Laterality Date ABDOMEN SURGERY AV FISTULA REPAIR 02/24/2014 LEFT Radical Cephalic Fistula Creation; Laterality: Left; Surgeon: Blake Chavarria MD ; Location: [facility] MAIN OR AV FISTULA REPAIR Left 03/07/2014 Procedure: AV FISTULA - GRAFT REPAIR/REVISION; Surgeon: Rik Simon MD; Location: [facility] IN OR; Service: Vascular; Laterality: Left; biopsy of kidney age 10 DIALYSIS FISTULA CREATION 04/08/2014 Procedure: DIALYSIS CATHETER - INSERTION; Surgeon: Rik Simon MD; Location: [facility] MAIN OR ; Service: Vascular; Laterality: N/A; tunneled catheter.br hemodialysis catheter KIDNEY BIOPSY Left 2003 OTHER SURGICAL HISTORY LAPAROSCOPIC PERITONEAL DIALYSIS CATHETER INSERTION - x2 OTHER SURGICAL HISTORY Right 07/2013 LAPAROSCOPIC PERITONEAL DIALYSIS CATHETER INSERTION - current dialysis access MWF dialysis OTHER SURGICAL HISTORY Left 06/24/2014 SUPERFICIALIZATION OF AV FISTULA - Procedure: AV FISTULA - SUPERFICIALIZATION; Surgeon: Emanuel Simon MD; Location: [facility] MAIN OR; Service: Vascular; Laterality: Left; OTHER SURGICAL HISTORY Left 04/08/2014 AV FISTULA PLACEMENT - Procedure: AV FISTULA; Surgeon: Rik Simon MD; Location: [facility] OR; Service: Vascular; Laterality: Left; cephalic OTHER SURGICAL HISTORY Left 03/07/2014 DECLOT GRAFT - Procedure: GRAFT - DECLOT; Surgeon: Rik Simon MD; Location: [facility] MAIN OR ; Service: Vascular; Laterality: [...] Confirmed by MUSE READ ONLY, -COMPUTER ([id number]), telegraph editor JOSH CHAPPELL ([id number]) on 01/07/2019 2 :50:41 AM ASSESSMENT & PLAN Principal Problem: Acute respiratory distress: -Multifactorial secondary to right pleural effusion, noncompliant with hemodialysis, asthma and noncompliance with diet -Oxygen as needed -ED physician to perform thoracentesis -Hemodialysis -Encourage compliance Active Problems: Hyperkalemia: -Treated in the emergency room at [facility] that he had, potassium now 5.8 -Secondary [...] of transfusion at this time -Epogen per cable driller Hypoglycemia: -Likely secondary to insulin given for her hyperkalemia and decrease PO intake -Hypoglycemic protocol GI and DVT prophylaxis Code Status: FULL CODE Dictation software, [employer], used which may contain errors for similar [...] on a Monday, Monday, Monday schedule at [facility] using left upper extremity AV fistula. She used to see Dr. Trent Camp but has switched to Emanuel Anguiano. She also has combined diastolic/systolic congestive heart failure and was recently hospital ized at [facility] with hypervolemia and right pleural effusion (12/10/18-12/14/18). She missed her last 2 dialysis sessions (Monday/Monday). She indicated "things got compl icated". Of note she has a history of missing dialysis treatments and non adherence to diet/fluid re striction and has had multiple hospitalizations at [facility] last year with similar presentation. She presented [...] acid base imbalances including hyperkalemia. Records from [facility] reviewed. Last outpatient HD was Monday [...] was completed later after rounds. Dictation software, Wiser (formerly WisePricer), was used which may contain error for [...] TID WC dextrose 10[facility] Eda Viera RN - 01/07/2019 [...] - 01/07/2019 1:36 AM PSTAssociated Order(s): Thoracentesis [facility] Department of Emergency Medicine History of Present [...] Symptoms: none Context: The patient presented to [facility] and was found to be fluid [...] Left; Surgeon: Blake Chavarria MD ; Location: [facility] MAIN OR AV FISTULA REPAIR Left 03/07/2014 Procedure: AV FISTULA - GRAFT REPAIR/REVISION; Surgeon: Rik Simon MD; Location: [facility] IN OR; Service: Vascular; Laterality: Left; biopsy of kidney age 10 DIALYSIS FISTULA CREATION 04/08/2014 Procedure: DIALYSIS CATHETER - INSERTION; Surgeon: Rik Simon MD; Location: [facility] MAIN OR ; Service: Vascular; Laterality: N/A; tunneled catheter.br hemodialysis catheter KIDNEY BIOPSY Left 2003 OTHER SURGICAL HISTORY LAPAROSCOPIC PERITONEAL DIALYSIS CATHETER INSERTION - x2 OTHER SURGICAL HISTORY Right 07/2013 LAPAROSCOPIC PERITONEAL DIALYSIS CATHETER INSERTION - current dialysis access MWF dialysis OTHER SURGICAL HISTORY Left 06/24/2014 SUPERFICIALIZATION OF AV FISTULA - Procedure: AV FISTULA - SUPERFICIALIZATION; Surgeon: Emanuel Simon MD; Location: [facility] OR; Service: Vascular; Laterality: Left; OTHER SURGICAL HISTORY Left 04/08/2014 AV FISTULA PLACEMENT - Procedure: AV FISTULA; Surgeon: Rik Simon MD; Location: [facility] OR; Service: Vascular; Laterality: Left; cephalic OTHER SURGICAL HISTORY Left 03/07/2014 DECLOT GRAFT - Procedure: GRAFT - DECLOT; Surgeon: Rik Simon MD; Location: [facility] OR ; Service: Vascular; Laterality: [...] History Narrative She lives in [facility]. She does not work. She has 1 [...] Negative for chest pain, Resp: Positive for padilqqaw-ob-rfzckb GI: Negative for abdominal pain, nausea, vomiting, [...] had been on 2L of O2 in [facility] but is not requiring oxygen currently. CXR s howed a right side pleural effusion. Insulin, Dextrose and Calcium given at [facility]. Labs/EKG/Imaging: Potassium is down to 5.9. I discussed the case with Dr. Martínez, hospitalist, who agrees to admission. She recommends consultation with nephrology. I called Dr. Duarte, cable driller, and left a voice message. Dr. Martínez was able to get a hold of the cable driller. It was recommended that the patient had [...] right posterior Intercostal space: 6th Puncture method: uwic-pkn-gampih catheter Needle size: 18 Catheter size: 18 [...] Component Value Ref Range Date/Time Troponin I [[id number]] (Abnormal) Collected: 01/07/19139 Order Status: Completed Specimen: Blood Updated: 01/07/19521 Troponin I 0.149 0.00 - 0.04 ng/mL CBC with Differential [[id number]] (Abnormal) Collected: 01/07/19139 Order Status: Completed Specimen: [...] Estimate ADEQUATE RBC Morphology 2+ POC Glucose [[id number]] (Abnormal) Collected: 01/07/19241 Order Status: Completed Updated: 01/07/19245 Glucose, POC 119 65 - 99 mg/dL POC Glucose [[id number]] Collected: 01/07/19 0208 Order Status: Completed Updated: 01/07/19 0246 Glucose, POC 67 65 - 99 mg/dL Comprehensive Metabolic Panel [[id number]] (Abnormal) Collected: 01/07/19 0140 Order Status: Completed [...] Medications: Current Discharge Medication List Dictation software, Wiser (formerly WisePricer), used which may contain error for similar sounding words even af ter review. Personal communication requested for any clarification. MD Florain Ramirez MD 01/07/19 1057 da Viera RN - 01/07/2019 1:31 AM PSTPt transferred from [facility] r/t pt missing dialysis 2x w/ hyperkalemia, [...] Admission or Illness Arrival From: Transfer from [facility] With: alone Living Arrangements: apartment Caregiver For: No one Patient s Caregiver: No one Functional Status: Independent Caregiving Concerns: None Home Accessibility: Transportation Available: car Able to return to prior living: yes Care Management Concerns Last discharge date: 12/14/18 Readmission Within Last 30 Days: previous discharge plan unsuccessful Is Readmission Diagnosis Related to or Same As: other (see comments)(Hyperkalemia.) Previous Discharging Facility: [facility] Previous Discharge Destination From: Home PCP: Jonathan [...] medical services, no blood thinners, cpap or [facility] health. Electronically signed: ROMAINE SALEH RN 01/08/2019 [...] shift review complete. Toño Montiel lan of [facility] - Reece Titus RN - 01/07/2019 3:49 [...] [place] | | | | | | [address] | | | | + + + + + + + + | Specimen | + + | | + + + + + + + | Performing | Address | City/State/Zipcode | Phone Number | | Organization | | | | + + + + + | [facility] | [address] | [place] [address] | [phone] | + + + + + POC [...] | LABORATORY | | | | [address];[place] | | | | | | [address] | | | | + + + + + + + + | Specimen | + + | | + + + + + + + | Performing | Address | City/State/Zipcode | Phone Number | | Organization | | | | + + + + + | [facility] | [address] | [place] [address] | [phone] | + + + + + CBC [...] [facility] | | | | performed at [facility];[address] | | LABORATORY | | | | [address];[place] | | | | | | [address] | | | | + + + + + + + + | Specimen | + + | Blood | + + + + + + + | Performing | Address | City/State/Zipcode | Phone Number | | Organization | | | | + + + + + | [facility] | [address] | [place] [address] | [phone] | + + + + + Phosphorus [...] | LABORATORY | | | | [address];[place] | | | | | | [address] | | | | + + + + + + + + | Specimen | + + | Blood | + + + + + + + | Performing | Address | City/State/Zipcode | Phone Number | | Organization | | | | + + + + + | [facility] | [address] | [place] [address] | [phone] | + + + + + Magnesium [...] | | performed at [facility];[address] | | LABORATORY | | | | [facility], [place] | | | | | | [address] | | | | + + + + + + + + | Specimen | + + | Blood | + + + + + + + | Performing | Address | City/State/Zipcode | Phone Number | | Organization | | | | + + + + + | [facility] | [address] | [place] [address] | [phone] | + + + + + Basic [...] 13 (L)Comment: GFR <60: | >60 | [facility] [...] | | | | | [facility] traceable | | | | | | equation.Testing | | | | | | performed at [facility] | | | | | | [facility];[place], [place] | | | | | | [address] | | | | + + + + + + + + | Specimen | + + | Blood | + + + + + + + | Performing | Address | City/State/Zipcode | Phone Number | | Organization | | | | + + + + + | [facility] | [address] | [place] [address] | [phone] | + + + + + POC [...] [place] | | | | | | [address] | | | | + + + + + + + + | Specimen | + + | | + + + + + + + | Performing | Address | City/State/Zipcode | Phone Number | | Organization | | | | + + + + + | [facility] | [address] | [place] [address] | [phone] | + + + + + POC [...] | LABORATORY | | | | [address];[place], [place] | | | | | | [address] | | | | + + + + + + + + | Specimen | + + | | + + + + + + + | Performing | Address | City/State/Zipcode | Phone Number | | Organization | | | | + + + + + | [facility] | [address] | [place] [address] | [phone] | + + + + + XR [...] | | PORTABLE (01/07/2019); CHEST TWO VIEWS 65951 (01/06/2019); XR CHEST AP | | | [...] PORTABLE (01/07/2019); | | CHEST TWO VIEWS 94496 (01/06/2019); XR CHEST AP PORTABLE (12/13/2018); | [...] | LABORATORY | | | | [address];[place] | | | | | | [address] | | | | + + + + + + + + | Specimen | + + | | + + + + + + + | Performing | Address | City/State/Zipcode | Phone Number | | Organization | | | | + + + + + | [facility] | [address] | [place] [address] | [phone] | + + + + + Comprehensive [...] 9 (L)Comment: GFR <60: | >60 | [facility] [...] | | performed at [facility] | | | | | | [facility];[place], [place] | | | | | | [address] | | | | + + + + + + + + | Specimen | + + | Blood | + + + + + + + | Performing | Address | City/State/Zipcode | Phone Number | | Organization | | | | + + + + + | [facility] | [address] | [place] [address] | [phone] | + + + + + CBC [...] | | | | | [address];[place] [address] | | | | + + + + + + + + | Specimen | + + | Blood | + + + + + + + | Performing | Address | City/State/Zipcode | Phone Number | | Organization | | | | + + + + + | [facility] | [address] | [place] [address] | [phone] | + + + + + POC [...] [place] | | | | | | [address] | | | | + + + + + + + + | Specimen | + + | | + + + + + + + | Performing | Address | City/State/Zipcode | Phone Number | | Organization | | | | + + + + + | [facility] | [address] | [place] [address] | [phone] | + + + + + POC [...] | LABORATORY | | | | [address];[place] | | | | | | [address] | | | | + + + + + + + + | Specimen | + + | | + + + + + + + | Performing | Address | City/State/Zipcode | Phone Number | | Organization | | | | + + + + + | [facility] | [address] | [place] [address] | [phone] | + + + + + POC [...] | LABORATORY | | | | [address];[place], [place] | | | | | | [address] | | | | + + + + + + + + | Specimen | + + | | + + + + + + + | Performing | Address | City/State/Zipcode | Phone Number | | Organization | | | | + + + + + | [facility] | [address] | [place] [address] | [phone] | + + + + + POC [...] [place] | | | | | | [address] | | | | + + + + + + + + | Specimen | + + | | + + + + + + + | Performing | Address | City/State/Zipcode | Phone Number | | Organization | | | | + + + + + | [facility] | [address] | [place] [address] | [phone] | + + + + + POC [...] | LABORATORY | | | | [address];[place], [place] | | | | | | [address] | | | | + + + + + + + + | Specimen | + + | | + + + + + + + | Performing | Address | City/State/Zipcode | Phone Number | | Organization | | | | + + + + + | [facility] | [address] | [place] [address] | [phone] | + + + + + POC [...] | LABORATORY | | | | [address];[place], [place] | | | | | | [address] | | | | + + + + + + + + | Specimen | + + | | + + + + + + + | Performing | Address | City/State/Zipcode | Phone Number | | Organization | | | | + + + + + | [facility] | [address] | [place] [address] | [phone] | + + + + + Comprehensive [employer] Panel (01/08/2019 4:51 AM PST) + + [...] | | | | performed at [facility], [address] | | | | | | [facility], | | | | | | [place] [address] | | | | + + + + + + + + | Specimen | + + | Blood | + + + + + + + | Performing | Address | City/State/Zipcode | Phone Number | | Organization | | | | + + + + + | [facility] | [address] | [place] [address] | [phone] | + + + + + CBC [...] [facility] | | | | performed at [facility], [address] | | LABORATORY | | | | [address], | | | | | | [place] [address] | | | | + + + + + + + + | Specimen | + + | Blood | + + + + + + + | Performing | Address | City/State/Zipcode | Phone Number | | Organization | | | | + + + + + | [facility] | [address] | [place] [address] | [phone] | + + + + + POC [...] [place] | | | | | | [address] | | | | + + + + + + + + | Specimen | + + | | + + + + + + + | Performing | Address | City/State/Zipcode | Phone Number | | Organization | | | | + + + + + | [facility] | [address] | [place] [address] | [phone] | + + + + + POC [...] | LABORATORY | | | | [address];[place], [place] | | | | | | [address] | | | | + + + + + + + + | Specimen | + + | | + + + + + + + | Performing | Address | City/State/Zipcode | Phone Number | | Organization | | | | + + + + + | [facility] | [address] | [place] [address] | [phone] | + + + + + CT [...] adenopathy. Upper Abdomen: The | | | douglas kidneys are atrophic. There is a small [...] No adenopathy. | | Upper Abdomen: The douglas kidneys are atrophic. There is a small [...] | LABORATORY | | | | [address];[place], [place] | | | | | | [address] | | | | + + + + + + + + | Specimen | + + | | + + + + + + + | Performing | Address | City/State/Zipcode | Phone Number | | Organization | | | | + + + + + | [facility] | [address] | [place] [address] | [phone] | + + + + + Hepatitis [...] [place] | | | | | | [address] | | | | + + + + + + + + | Specimen | + + | Blood | + + + + + + + | Performing | Address | City/State/Zipcode | Phone Number | | Organization | | | | + + + + + | [facility] | [address] | [place] [address] | [phone] | + + + + + POC [...] | LABORATORY | | | | [address];[place] | | | | | | [address] | | | | + + + + + + + + | Specimen | + + | | + + + + + + + | Performing | Address | City/State/Zipcode | Phone Number | | Organization | | | | + + + + + | [facility] | [address] | [place] [address] | [phone] | + + + + + XR [...] | | | | | ONLY, -COMPUTER ([id number]), | | | | | | telegraph editor JOSH CHAPPELL | | | | | | ([id number]) on 01/07/2019 | | | | | [...] [place] | | | | | | [address] | | | | + + + + + + + + | Specimen | + + | | + + + + + + + | Performing | Address | City/State/Zipcode | Phone Number | | Organization | | | | + + + + + | [facility] | [address] | [place] [address] | [phone] | + + + + + POC [...] | LABORATORY | | | | [address];[place] | | | | | | [address] | | | | + + + + + + + + | Specimen | + + | | + + + + + + + | Performing | Address | City/State/Zipcode | Phone Number | | Organization | | | | + + + + + | [facility] | [address] | [place] [address] | [phone] | + + + + + Troponin [...] [address] | | | | | [address];[place] [address] | | | | + + + + + + + + | Specimen | + + | Blood | + + + + + + + | Performing | Address | City/State/Zipcode | Phone Number | | Organization | | | | + + + + + | [facility] | [address] | [place] [address] | [phone] | + + + + + Comprehensive [...] [facility];[address] | | | | | | [facility];[place], [place] | | | | | | [address] | | | | + + + + + + + + | Specimen | + + | Blood | + + + + + + + | Performing | Address | City/State/Zipcode | Phone Number | | Organization | | | | + + + + + | [facility] | [address] | [place] [address] | [phone] | + + + + + CBC [...] | | at [facility];[address] | | | | | | [address]vd;[place] [address] | | | | | |NORMAL PLT MORPH | | | | | |Testing performed at [facility];[address] [place] [address];[place] [address] | | | | | | | | | | + + + + + + + + | Specimen | + + | Blood | + + + + + + + | Performing | Address | City/State/Zipcode | Phone Number | | Organization | | | | + + + + + | [facility] | [address] | [place] [address] | [phone] | + + + + + Thoracentesis [...] space: 6th Puncture method: | | | aayh-acq-eewbgj catheter Needle size: 18 Catheter size: 18 [...] Anemia in ESRD (end-stage renal disease) ([facility]) Anemia in chronic kidney disease | + + | At high risk for electrolyte imbalance | + + | Chronic combined systolic and diastolic heart failure ([facility]) Chronic combined systolic | | and diastolic heart failure | + + | Dilated cardiomyopathy ([facility]) Other primary cardiomyopathies | + + | ESRD on hemodialysis ([facility]) End stage renal disease | [...] anxiety with hemodialysis, | | | Starting [facility] 01/10/19 at 0952 | | + +---+ [...]
--- OUTSIDE RECORDS SUMMARY | ~2019-12-21 | XMS | Encounter Summary ---
Demographics + + + | Address | [address] | | | [place] [address] | + + + | Home Phone [...] Team Providers + +------+ + | Care Homemaker Companion Name | Role | Phone | [...] [address] | | | | | [place], [place] | [place] [address] | | | | | [address] | [phone] | | | | | [phone] | | | +--------+--------+ + + + [...]
--- OUTSIDE RECORDS SUMMARY | ~2019-12-21 | XMS | Encounter Summary ---
Demographics + + + | Address | [address] | | | [place] [address] | + + + | Home Phone [...] Team Providers + +------+ + | Care Antisqueak Chalker Name | Role | Phone | + +------+ + PCP | Unavailable | + +------+ + Encounter Details +--------+ + + + + | Date | Type | Department | Care Team | Description | +--------+ + + + + | 06/24/ | Hospital | [facility] | Rik Simon MD | | | 2015 | Encounter | [facility] | [address] | | | | | [address] | [place], [place] | | | | | [place], [place] | [address] | | | | | [address] | [phone] | | | | | [phone] | | | +--------+ + + + [...] different from the original. Progress Notes by Merlinricha Carter RPH at 06/24/14 1341 Author: Merlin Carter RPH Service: (none) Author Type: Pharmacist Filed: 06/24/141340 Date of Service: 06/24/141340 Status: Signed Heavy Equipment Operator: Merlin Carter RPH (Pharmacist) Clinical Pharmacy Note: Renal Monitoring Dara Weldon 19 y.o. female Ht Readings from Last 1 Encounters: 06/24/14 1.702 m (5' 7") (86 %*, Z = 1.09) * Growth percentiles are based on [facility] 2-20 Years data. Wt Readings from Last 1 Encounters: 06/24/14 99.6 kg (219 lb 9.3 oz) (99 %*, Z = 2.20) * Growth percentiles are based on [facility] 2-20 Years data. CREATININE Date Value Ref Range Status 06/24/2014 7.55* 0.50 - 1.00 mg/dL Final Testing performed at [facility];[address] [place] [address];[place] [address] CREATININE: 7.55 mg/dL ABNORMAL (06/24/14 1045) Estimated creatinine clearance - 14.7 mL/min Pharmacy dosing for renal function per Dr. Simon. Currently, there are no medications needing to be adjusted. Pharmacy will continue to monit or for changes in medication orders and in renal function and adjust accordingly. Merlin Carter RPh 06/24/2014 1:41 PM docume nted in this encounter H&P Notes Kimberly Franz ARNP - 06/24/2014 7:36 AM PDTFormatting of this note might be different f rom the original. H&P by KRISHNA Agarwal at 06/24/14735 Author: KRISHNA Agarwla Service: Vascular Surgery Author Type: Advanced Registered Poonam sanchez Practitioner Filed: 06/24/14735 Date of Service: 06/24/14735 Status: Signed Heavy Equipment Operator: KRISHNA Agarwal (Advanced Registered Nurse Practitioner) [facility] Service: Vascular Surgery Pre-Operative History & Physical DIAGNOSIS: ESRD INDICATION: SAME PROCEDURE: Left arm fistula superficialization CHIEF COMPLAINT: Fistula too deep to access History Obtained From: patient HISTORY OF PRESENT ILLNESS The patient is a 19 y.o. female with significant past medical history of HSP who presents f or new fistula creation. Has had a previous left radiocephalic fistula which clotted off. Cu rrently dialyzing via RIJ tunnel catheter. We created a new left arm brachiocephalic fistula and ligated her radiocephalic fistula as well as exchanged her tunnel catheter. Her BC fis moe has matured well but is deep due to body habitus therefore we have discussed superficia lization and patient would like to proceed. REVIEW OF SYSTEMS Review of Systems Comprehensive ROS performed and pertinent items described in the HPI. Past Medical History Diagnosis Date HSP (Henoch-Schonlein purpura) nephritis Hypertension Clotted dialysis access 2014 Past Surgical History Procedure Laterality Date Av fistula placement Renal biopsy Laparoscopic peritoneal dialysis catheter insertion x2 Abdominal surgery Av fistula repair Left 03/07/2014 Procedure: AV FISTULA - GRAFT REPAIR/REVISION; Surgeon: Rik Simon MD; Location: [facility] OR; Service: Vascular; Laterality: Left; Declot graft Left 03/07/2014 Procedure: GRAFT - DECLOT; Surgeon: Rik Simon MD; Location: [facility] OR; Service: Va scular; Laterality: Left; Av fistula placement Left 04/08/2014 Procedure: AV FISTULA; Surgeon: Rik Simon MD; Location: [facility] OR; Service: Vascul ar; Laterality: Left; cephalic Dialysis fistula creation N/A 04/08/2014 Procedure: DIALYSIS CATHETER - INSERTION; Surgeon: Rik Simon MD; Location: [facility]; Service: Vascular; Laterality: N/A; tunneled catheter Laparoscopic peritoneal dialysis catheter insertion Right 07/2013 current dialysis access MWF dialysis Allergies Allergen Reactions Morphine Rash Tape [Adhesive Tape] Rash Use silk tape only No current facility-administered medications on file prior to encounter. Current Outpatient Prescriptions on File Prior to Encounter Medication Sig Dispense Refill cinacalcet (SENSIPAR) 30 MG tablet Take 25 mg by mouth daily. folic acid-vitamin b complex-vitamin n-wriabtfd-wcmn (DIALYVITE) 3 MG TABS Take 1 table t by mouth daily. sevelamer (RENVELA) 800 MG [...] Not on file Social History Narrative History Alcohol Use No PHYSICAL EXAM Vital Signs: There were no [...] Skin: Skin is warm and dry. Vascular: + thrill to AVF. Deep proximally DATA CBC: Lab Results Component Value Date WBC 8.85 06/12/2014 RBC 3.83 06/12/2014 HGB 13.6 06/12/2014 HCT 40.5 06/12/2014 MCV 105.8* 06/12/2014 MCH 35.6* 06/12/2014 MCHC 33.6 06/12/2014 RDW 50.3 06/12/2014 PLT 170 06/12/2014 MPV 9.5 06/12/2014 DIFFTYPE AUTOMATED 06/12/2014 BMP: Lab Results Component Value Date NA 134* 06/12/2014 K 3.8 06/12/2014 CL 94* 06/12/2014 CO2 31 06/12/2014 ANIONGAP 13 06/12/2014 GLUF 95 06/12/2014 BUN 40* 06/12/2014 CREATININE 7.24* 06/12/2014 BCR 6 06/12/2014 CA 10.2 06/12/2014 EGFR CALCULATION NOT PERFORMED. RESULT NOT VALID IF AGE LT 20 YEARS. 06/12/2014 PT/INR: Lab Results Component Value Date INR 1.0 06/12/2014 PTT: Lab Results Component Value Date APTT 28 06/12/2014 [APTT} PROBLEM LIST There is no problem list on file for this patient. ASSESSMENT & PLAN 1. Patient is a 19 y.o. female with above specified procedure planned. 2. Procedure options, risks, benefits and alternatives reviewed with patient who express( es) understanding. Any and all questions were answered to their satisfaction. Primary Care Physician: KRISHNA Saez 06/19/2014 *CORE MEASURES REMINDER: If the patient has a known or suspected infection prior to surger y, please add diagnosis to the problem list (consider: Infection 136.9). documented in this encounter Miscellaneous Notes Op Note - Rik Simon MD - 06/24/2014 1:00 PM PDTFormatting of this note might be differen t from the original. Op Note by Rik Simon MD at 06/24/14 1300 Author: Rik Simon MD Service: Vascular Surgery Author Type: Physician Filed: 06/24/14 1302 Date of Service: 06/24/14 1300 Status: Signed Heavy Equipment Operator: Rik Simon MD (Physician) [facility] Service: Vascular Surgery Operative Note Pre-operative Diagnosis: ESRD and fistula too deep to access Post-operative Diagnosis: Same Procedure(s): Superficialization of left brachiocephalic fistula. Surgeon: Rik Simon MD Door To Door Salesman(s): KRISHNA Agarwal Anesthesia: General LMA Estimated Blood Loss: Less Than 50 ml Other: IV Fluids: 500 ml Indications: See pre-operative history and physical. Findings: Left arm cephalic vein of good size. However, fistula was very deep. After sup erficialization, good thrill in fistula. Complications: None apparent Description of Procedure: The patient was properly identified and brought to the operating room. The patient was placed supine on the operating table. The patient underwent General L MA. The patient's left arm was then prepped and draped in the usual sterile fashion. A longi tudinal incision was then made from the left axilla to the antecubital fossa. This was deepe carlos through the subcutaneous tissue with electrocautery. The cephalic vein was identified an d dissected. Branches of the cephalic vein were ligated with 3-0 silk sutures and divided. O nce the vein was freed from the antecubital fossa to the axilla, a subcutaneous skin flap wa s then raised and the vein was then placed underneath a subcutaneous skin flap and secured u sing 3-0 Vicryl sutures. The wound was then irrigated and hemostasis was ensured. The deep d ermal tissue was then closed with 3-0 Vicryl. The skin was then closed with 4-0 Monocryl in a subcuticular fashion. There was a strong thrill in the fistula. At the end of the case th e sponge, needle, and instrument counts were correct x2. Mastisol and Steri-Strips were then placed on the skin and a sterile dressing was then applied. Patient was then taken to the PACU in stable condition. There were no apparent complications. Condition: Stable Rik Simon MD 06/24/2014 documented in this encoun ter Plan of [...] LAB | | | | Blvd;[place] [address] | | | | + + + + + + | Antibody | NEGATIVE | | EXTERNAL | | | Screen | | | LAB | | + + + + + + | Antibody | Testing performed at | | EXTERNAL | | | Screen | [facility];[address] | | LAB | | | | [address];[place] [address] | | | | + + + + + + | BB BAND | [id number] | | EXTERNAL | | | | | | LAB | | + + + + + + | BB BAND | Testing performed at | | EXTERNAL | | | | [facility];[address] | | LAB | | | | [address];[place] [address] | | | | + + + [...] | | | | performed at [facility] | | | | | | [facility];[place], [place] | | | | | | [address] | | | | + + + [...] | | QUALITATIVE | performed at [facility] | | LAB | | | | [address];[place], [place] | | | | | | [address] | | | | + + + [...] | | | | performed at [facility];[address] | mmol/L | LAB | | | | [address];[place] | | | | | | [address] | | | | + + + + + + | K | 4.3Comment: Testing | 3.5 - 4.9 | EXTERNAL | | | | performed at [facility];[address] | mmol/L | LAB | | | | [address];[place] | | | | | | [address] | | | | + + + + + + | Cl | 101Comment: Testing | 99 - 109 mmol/L | EXTERNAL | | | | performed at [facility];[address] | | LAB | | | | [address];[place] | | | | | | [address] | | | | + + + + + + | CO2 | 23Comment: Testing | 23 - 32 mmol/L | EXTERNAL | | | | performed at [facility];[address] | | LAB | | | | [address];[place] | | | | | | [address] | | | | + + + + + + | Anion Gap | 16Comment: Testing | 5 - 20 mmol/L | EXTERNAL | | | | performed at [facility];[address] | | LAB | | | | [address];[place] | | | | | | [address] | | | | + + + + + + | Glucose, | 84Comment: Testing | 65 - 99 mg/dL | EXTERNAL | | | Fasting | performed at [facility];[address] | | LAB | | | | [address];[place] | | | | | | [address] | | | | + + + + + + | BUN | 40 (H)Comment: Testing | 8 - 25 mg/dL | EXTERNAL | | | | performed at [facility];[address] | | LAB | | | | [address];[place] | | | | | | [address] | | | | + + + + + + | Creatinine | 7.55 (H)Comment: Testing | 0.50 - 1.00 | EXTERNAL | | | | performed at [facility];[address] | mg/dL | LAB | | | | [address];[place] | | | | | | [address] | | | | + + + + + + | BUN/Creatin | 5Comment: Testing | | EXTERNAL | | | ine Ratio | performed at [facility];[address] | | LAB | | | | [address];[place] | | | | | | [address] | | | | + + + + + + | Calcium | 9.8Comment: Testing | 8.5 - 10.5 | EXTERNAL | | | | performed at [facility];[address] | mg/dL | LAB | | | | [address];[place] | | | | | | [address] | | | | + + + + + + | Estimated | CALCULATION NOT | mL/min/1.73m2 | EXTERNAL | | | GFR | PERFORMED. RESULT NOT | | LAB | | | | VALID IF AGE LT 20 | | | | | | YEARS.Comment: Testing | | | | | | performed at [facility];[address] | | | | | | [facility];[place], [place] | | | | | | [address] | | | | + + + [...]
--- OUTSIDE RECORDS SUMMARY | ~2019-12-21 | XMS | Encounter Summary ---
Demographics + + + | Address | [address] | | | [place] [address] | + + + | Home Phone [...] Providers + +------+ + | Care Log Handling Equipment Operator Name | Role | Phone [...] [address] | | | | | ([facility]) | [place] | [place], | | | | | Procedures | [place], [place] | [place] [address] | | | | | [place] | [address] | Phone: | | | | | ANASTOMOSIS, | Phone: | [phone] | | | | | [address] | [phone] | Fax: | | | | | | Fax: | [phone] | | | | | | [phone] | | +--------+ + + + + [...] [address] | | | | | ([facility]) | [address] | [place], | | | | | | [place], | [place] [address] | | | | | | [place] [address] | Phone: | | | | | | Phone: | [phone] | | | | | | [phone] | Fax: | | | | | | Fax: | [phone] | | | | | | [phone] | | +--------+ + + + + + Encounter Details +--------+---------+ + + + | Date | Type | Department | Care Team | Description | +--------+---------+ + + + | 02/20/ | Office | [facility] | Blake Chavarria | End stage renal | | 2013 | Visit | SURGERY [address] | MD Antonieta, FACS [address] | disease (HCC) | | | | [address]VE [place] [facility], [place] | [address] [facility] | (Primary Dx) | | | | [address] | [place] [address] | | | | | [phone] | [phone] | | | | | | | [...] Care ? Shahid Camargo Who is your Home School Coordinator/Kidney Specialist ? Dr. Camp When was the current dialysis access placed? July 2013 at [facility] What problems are there with the current dialysis access? 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 Patient used to have PD catheter for dialysis 2012--[facility] in [place] . Came out Jul, 2013 . Then got RIGHT IJ catheter. Also got catheter at [facility]. Live in [place]. Go es to [place] in [place] for dialysis. Now needs AVF. Is RIGHt hand dominant. No pains in hands. 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 Currently on [facility] for [...] with [facility] Transplant Team. Shahid Camargo's notes were not available to be reviewed in clinic today. PAST MEDICAL HISTORY Past Medical History She has a past medical history of HSP (Henoch-Schonlein purpura) nephritis ([facility]) (1987) and ESRD (end stage renal disease) ([facility]). Past Surgical History She Past Surgical History [...] REPORT: PATIENT NAME : Dara Weldon EQUIPMENT: SonNovaShuntte M-Turbo with 10-5 mHertz probe. INDICATIONS: Dialysis [...] encounter Miscellaneous Notes Miscellaneous - [facility] - 02/20/2014 12:00 AM PST documented in this encounter Plan of Treatment + + +--------+ + + | Name | Type | Priori | Associated Diagnoses | Order Schedule | | | | ty | | | + + +--------+ + + | * [facility] | Outpatient | Routin | End [...]
--- OUTSIDE RECORDS SUMMARY | ~2019-12-21 | XMS | Encounter Summary ---
Demographics + + + | Address | [address] | | | [place] [address] | + + + | Home Phone [...] Providers + +------+ + | Care Rubber Compounder Mixer Name | Role | Phone | [...] ST | | | | | ([facility]) | [address] | [address] | | | | | Anemia in | [place], [place] | [place], | | | | | ESRD | [address] | [place] [address] | | | | | (end-stage | Phone: | Phone: | | | | | renal | [phone] | [phone] | | | | | disease) | Fax: | Fax: | | | | | ([facility]) | [phone] | [phone] | | | | | Procedures | [...] [address] | renal disease) ([facility]) | | | | [address] | [address] [place] | (Primary Dx); | | | | [place], [place] | [place] [address] | Secondary | | | | [address] | [phone] | hyperparathyroidism | | | | [phone] | | ([facility]) | +--------+ + + [...] still interested in a career in Cosmetology, jail. Outpatient Prescriptions Marked as Taking for the [...] treatment will eventually subtract f rom her emt intermediate survival. I think that basically she needs to diplomatically, hear this message repeatedly , until she obtains some better insight into healthy [facility] ce or her maturity level improves. 2. [...]
--- OUTSIDE RECORDS SUMMARY | ~2019-12-21 | XMS | Encounter Summary ---
Demographics + + + | Address | [address] | | | [place] [address] | + + + | Home Phone [...] | | | | | [place] [address] | | + + + + + | Thania Mallory | ECON | [address] | | | | | [place] [address] | | + + + + + | Deidra Weldon | ECON | [address] | | | | | [place] | | | | | [address] | | + + + + + Care Team Providers + +------+ + | Care Hadoop Infrastructure Architect Name | Role | Phone [...] | | | | | [address] [place], | [employer], [place] | | | | | [place] [address] | [address] | | | | | [phone] | | | +--------+ + + + [...] [place] | | | | | | [address] | | | | | | [phone] | | | | | | | | +--------+ + + + + documented as of this encounter Visit Diagnoses Not on filedocumented in this encounter"
--- OUTSIDE RECORDS SUMMARY | ~2019-12-21 | XMS | Encounter Summary ---
Demographics + + + | Address | [address] | | | [place] [address] | + + + | Home Phone [...] | Author | [facility] | | | and [place] | + + + | Organization | [facility] | | | [...] Providers + +------+ + | Care Research Microbiologist Name | Role | Phone | + +------+ + PCP | Unavailable | + +------+ + Encounter Details +--------+ + + + + | Date | Type | Department | Care Team | Description | +--------+ + + + + | 02/20/ | Orders Only | [facility] | Amina Hansen, | | | 2014 | | NEPHROLOGY [address] | RN | | | | | [address] | | | | | | [place] | | | | | | [address] | | | | | | [phone] | | | +--------+ + + + [...]
--- OUTSIDE RECORDS SUMMARY | ~2019-12-21 | XMS | Encounter Summary ---
Demographics + + + | Address | [address] | | | [place] [address] | + + + | Home Phone [...] Team Providers + +------+ + | Care Fashion Intern Name | Role | Phone | [...] | | | | | | MS | | | | | | | [...] + + | 02/24/ | Hospital | [facility] | Blake Chavarria | ESRD (end stage | | 2013 | Encounter | MED CTR OR INTRA OP | MD Antonieta, FACS [address] | renal disease) ([facility]) | | | | [address] | [address] | (Primary Dx) | | | | [place] | [place] [address] | | | | | [address] | [phone] | | | | | [phone] | | | +--------+ + + + [...] might be different f rom the original. [facility] POST-OP INSTRUCTIONS: Arterio-Venous Fistula 1. [...] may interact with prescription medicines or other weub-vob-xqxevpg (OTC) drugs. The FDA recommends reading OTC medication labels careful ly to clearly understand the list of active ingredients, directions, and any precautions to help avoid taking too muchacetaminophen. If you have questions, ask your pharmacist or a [facility] care provider. Managing Nausea Some people [...] or skin changes (rash, itching, or hives). 2839-7923 [employer]. [address] [place] [address]. All righ ts reserved. This information is [...] Chavarria MD - 02/24/2014 7:47 AM PST [facility] ID SURGICAL INTERIM HISTORY AND PHYSICAL UPDATE Pt. [...] signed by: Blake Chavarria, 02/24/2014 7:47 [facility] ield, Blake Fung MD - 02/20/2014 10:16 [...] yes Who is your Primary Care ? Sahhid Camargo Who is your Knot Tier/Kidney Specialist ? Dr. Camp When was the current dialysis access placed? July 2013 at [facility] What problems are there with the current dialysis access? 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 Patient used to have PD catheter for dialysis 2012--[facility] in [place] . Came out Jul, 2013 . Then got RIGHT IJ catheter. Also got catheter at [facility]. Live in [place]. Go es to [place] in [place] for dialysis. Now needs AVF. Is RIGHt hand dominant. No pains in hands. 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 Currently on [facility] for kidney transplant. Wants AVF in [...] ed for acceptable candidacy. Will f/u with [facility] Transplant Team. Shahid Camargo's notes were not available to be reviewed in clinic today. PAST MEDICAL HISTORY Past Medical History She has a past medical history of HSP (Henoch-Schonlein purpura) nephritis ([facility]) (1987) and ESRD (end stage renal disease) ([facility]). Past Surgical History She Past [...] REPORT: PATIENT NAME : Dara Weldon EQUIPMENT: [employer]-Inboxo with 10-5 mHertz probe. INDICATIONS: Dialysis access [...] Notes Plan of Care - ONBASE SCAN [facility] - 02/25/2014 12:00 AM PST iscellaneous - [facility] - 02/25/2014 12:00 AM PSTElec tronically signed by Jose Chavez at 02/25/2014 1:27 PM PSTMiscellaneous - [facility] SCAN [facility] - 02/25/2014 12:00 AM PST p Note - Blake Chavarria MD - 02/24/2014 10:[facility] Pt. Name/Age/: Dara Weldon 18 y.o. 1995 Med. Record Number: [id number] Date of admission: 02/24/2014 Date of Operation/Procedure: [...] mL/min/1.73m2 | [facility] | | | [place] | (<18). | | MEDICAL | | [...] | + + + + + | [facility] | [address] | [place], [place] | [phone] | | [facility] | | [address] | | | - LABORATORY | | | | + + + + + | [facility] | [address] | [place], [place] | | | [facility] | | [id number] | | | - LABORATORY | [...]
--- OUTSIDE RECORDS SUMMARY | ~2019-12-21 | XMS | Encounter Summary ---
Demographics + + + | Address | [address] | | | [place] [address] | + + + | Home Phone [...] | | | | | [place] [address] | | + + + + + | Thania Mallory | ECON | [address] | | | | | [place] [address] | | + + + + + | Deidra Weldon | ECON | [address] | | | | | [place] | | | | | [address] | | + + + + + Care Team Providers + +------+ + | Care Superintendent Marine Name | Role | Phone | [...] Evaluation | | | | Caro Chan [place], | [place], [place] | (pre-listing | | | | [place] [address] | [address] | pediatric [place] SW | | | | [phone] | | update) | +--------+ + + [...] input on her psychosocial progress from pt's [facility] s center staff (both RN and SW) in [place] via telephone on 02-10-14. Patient s original pre-listing psychosocial evaluation was done on 12-19-12. Patient was deferred at that [facility] due to various instabilities in her psychosocial situation as well as pending the evaluati on of potential living donors. She has not yet been placed on the waiting list but is in [facility] process of reconsideration for listing by the pediatric transplant team. Current Living Situation: Dara's family, her father Clayton and stepmother Deidra, abruptly lost their housing when [facility] property was sold by the sem manager without warning. They moved in with Deidra's mother, in [facility] on December 28, 2013. In addition to Deidra's mother, there are two young male [facility] family members, pt's stepbrothers, (ages 21 [...] detailed and specific plans to move to [place], [place] with her best friend named Tai, whom she has known since kindergarten once they graduate from high school this spring. Patient has relatives who live there they can stay with until they can move into their own apartment. 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 Chani chapin has located a [facility] center there to transfer her dialysis. [place] [...] she is in her senior year at [employer], she a ttends on non-dialysis days and views the school as less supportive of her medical condition . Dialysis staff report that patient has declined in academic performance and struggles to pass classes. 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 Diedra enjoys her work and has a relatively supportive emplo ministerio. 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 He is working now but [...] not to count on [employer] award skilled nursing, likely removal in 1-3 years post-tx. Deidra [...] month. They will stay at the local [facility] and he will have a working vehicle. [...] of the travel/stay. Family aware of the [facility] schedule of frequent labs and clinic visits [...] renal transplantation from a psychosocial perspective. Mariza Hsu, ERECTOR OPERATOR, TUB TENDER Pediatric Renal Transplant Head Sulfide Operator pg. #[phone] documented in this en counter Plan of Treatment +--------+ + + + + | Date | Type | Specialty | Care Team | Description | +--------+ + + + + | 05/04/ | Hospital | Adult Acute Care | El Starr MD | | | 2022 | Encounter | | [address] | | | | | | [place], [place] | | | | | | [address] | | | | | | [phone] | | | | | | | | +--------+ + + + + documented as of this encounter Visit Diagnoses Not on filedocumented in this encounter
--- OUTSIDE RECORDS SUMMARY | ~2019-12-21 | XMS | Encounter Summary ---
Demographics + + + | Address | [address] | | | [place] [address] | + + + | Home Phone [...] | | | | | [place] [address] | | + + + + + | Thania Mallory | ECON | [address] | | | | | [place] [address] | | + + + + + | Dedira Weldon | ECON | [address] | | | | | [place] | | | | | [address] | | + + + + + Care Team Providers + +------+ + | Care Vehicle Calibration Engineer Name | Role | Phone | + +------+ + PCP | Unavailable | + +------+ + Reason for Visit + +--------+ + | Reason | Onset | Comments | | | Date | | + +--------+ + | Refill Request | 04/18/ | | | | 2011 | | + +--------+ + Encounter Details +--------+--------+ + + + | Date | Type | Department | Care Team | Description | +--------+--------+ + + + | 04/18/ | Refill | Pediatric | Sudhakar Joy | Refill Request | | 2011 | | Nephrology at | MD Emanuel [address] | | | | | [place] | [facility] | | | | | [facility] | [place], [place] | | | | | [address] | [address] | | | | | [place] | [phone] | | | | | [facility], | | | | | | [address] [place] [address] | | | | | | [place], [place] | | | | | | [address] | | | | | | [phone] | | | +--------+--------+ + + + [...] 2022 | Encounter | | [address] | | | | | | [place] | | | | | | [address] | | | | | | [phone] | | | | | | | | +--------+ + + + + documented as of this encounter Visit Diagnoses Not on filedocumented in this encounter"
--- OUTSIDE RECORDS SUMMARY | ~2019-12-21 | XMS | Encounter Summary ---
Demographics + + + | Address | [address] | | | [place] [address] | + + + | Home Phone [...] Team Providers + +------+ + | Care Vending Machine Collector Name | Role | Phone | + +------+ + PCP | Unavailable | + +------+ + Encounter Details +--------+ + + + + | Date | Type | Department | Care Team | Description | +--------+ + + + + | 09/19/ | Orders Only | [facility] | Ibarra, Daniela W, | | | 2017 | | NEPHROLOGY [address] | MD [address] | | | | | [address] | [address] [place] | | | | | [place], [place] | [place] [address] | | | | | [address] | [phone] | | | | | [phone] | | | +--------+ + + + [...]
--- OUTSIDE RECORDS SUMMARY | ~2019-12-21 | XMS | Encounter Summary ---
Demographics + + + | Address | [address] | | | [place] [address] | + + + | Home Phone [...] Providers + +------+ + | Care Wire Chief Name | Role | Phone | + +------+ + | Jonathan Alonso MD | PCP | | + +------+ + Reason for Visit +--------+--------+ + | Reason | Onset | Comments | | | Date | | +--------+--------+ + | DME | 03/21/ | ARMEN O2 | | | 2020 | | +--------+--------+ + Encounter Details +--------+ + + + + | Date | Type | Department | Care Team | Description | +--------+ + + + + | 03/21/ | Telephone | [facility] | George Torres RN | DME (CMN O2) | | 2020 | | [address] | | | | | | [place] | | | | | | [address] | | | | | | [phone] | | | +--------+ + + + [...] Telephone Encounter - George Torres RN - 03/21/2019 10:47 AM PSTReceived CMN for O2 from [facility]. Sent to Dr. Kowalski for review and signature.Electronically signed by ABRIL Pulido 03/21/2019 10:48 AM PSTdocumented in this encounter Plan of Treatment Not on filedocumented as of this encounter Visit Diagnoses Not on filedocumented in this encounter"
--- OUTSIDE RECORDS SUMMARY | ~2019-12-21 | XMS | Encounter Summary ---
[...] | | | | | [place] [address] | | + + + + + | Thania Mallory | ECON | [address] | | | | | [place] [address] | | + + + + + | Deidra Weldon | ECON | [address] | | | | | [place] | | | | | [address] | | + + + + + Care Team Providers + +------+ + | Care Materials Assistant Name | Role | Phone | [...] Transplant Services | RN [address] [facility] | Update | | | | [address] [facility] | [facility] | | | | | [address] [facility], | [place], [place] | | | | | [place] [address] | [address] | | | | | [phone] | | | +--------+ + + + [...] [address] | | | | | | [place] | | | | | | [address] | | | | | | [phone] | | | | | | | | +--------+ + + + + documented as of this encounter Visit Diagnoses Not on filedocumented in this encounter"
--- OUTSIDE RECORDS SUMMARY | ~2019-12-21 | XMS | Encounter Summary ---
Demographics + + + | Address | [address] | | | [place] [address] | + + + | Home Phone [...] | Author | [facility] | | | and [place] | + + + | Organization | [facility] | | | [...] Providers + +------+ + | Care Data Coder Operator Name | Role | Phone | + +------+ + PCP | Unavailable | + +------+ + Reason for Visit + +--------+ + | Reason | Onset | Comments | | | Date | | + +--------+ + | Appointment | 03/10/ | | | | 2015 | | + +--------+ + Encounter Details +--------+ + + + + | Date | Type | Department | Care Team | Description | +--------+ + + + + | 03/10/ | Telephone | [facility] [place] | Daniela Ibarra W, | Appointment | | 2015 | | NEPHROLOGY [address] | MD [address] | | | | | [address] | [address] [place] | | | | | [place], [place] | [place] [address] | | | | | [address] | [phone] | | | | | [phone] | | | +--------+ + + + [...] Telephone Encounter - Merly Cortes RN - 03/10/2014 1:[address] Ibarra, patient wants to cancel appointment with Dr. Chavarrai and follow up with Dr. Rik Simon at [facility] instead. Dr. Chavarria's office called and appt canceled. Dr. Simon's office called, they requested demographic sheet be faxed to their office and then they would call the patient t o schedule follow-up appt. P M PSTdocumented in this encounter Plan of Treatment Not on filedocumented as of this encounter Visit Diagnoses Not on filedocumented in this encounter"
--- OUTSIDE RECORDS SUMMARY | ~2019-12-21 | XMS | Encounter Summary ---
Demographics + + + | Address | [address] | | | [place] [address] | + + + | Home Phone [...] Team Providers + +------+ + | Care Anesthetic Assistant Name | Role | Phone | + +------+ + PCP | Unavailable | + +------+ + Encounter Details +--------+ + + + + | Date | Type | Department | Care Team | Description | +--------+ + + + + | 08/30/ | Off-Site | [facility] [place] | Jorje Camp | ESRD (end stage | | 2016 | Visit | NEPHROLOGY [address] | M, DO [address] | renal disease) ([facility]) | | | | [address] | [address] [place] | (Primary Dx) | | | | [place], [place] | [place] [address] | | | | | [address] | [phone] | | | | | [phone] | | | +--------+ + + + [...]
--- OUTSIDE RECORDS SUMMARY | ~2019-12-21 | XMS | Encounter Summary ---
Demographics + + + | Address | [address] | | | [place] [address] | + + + | Home Phone [...] | | | | | [place] [address] | | + + + + + | Thania Mallory | ECON | [address] | | | | | [place] [address] | | + + + + + | Deidra Weldon | ECON | [address] | | | | | [place] | | | | | [address] | | + + + + + Care Team Providers + +------+ + | Care Brinell Tester Name | Role | Phone | [...] | | | | | Caro Chan [place], | [place], [place] | | | | | [place] [address] | [address] | | | | | [phone] | | | +--------+ + + + [...] and stepmother because they are moving to [place]. Pt states that she is living with [...] Ave | | | | | | [place], [place] | | | | | | [address] | | | | | | [phone] | | | | | | | | +--------+ + + + + documented as of this encounter Visit Diagnoses Not on filedocumented in this encounter"
--- OUTSIDE RECORDS SUMMARY | ~2019-12-21 | XMS | Encounter Summary ---
Demographics + + + | Address | [address] | | | [place] [address] | + + + | Home Phone [...] | | | | | [place] [address] | | + + + + + | Thania Mallory | ECON | [address] | | | | | [place] [address] | | + + + + + | Deidra Weldon | ECON | [address] | | | | | [place] | | | | | [address] | | + + + + + Care Team Providers + +------+ + | Care Student Success Coach Name | Role | Phone | [...] | Nephrology at | MD Emanuel [address] [facility] | | | | | [place] | Elias Elizondo | | | | | [facility] | [place], [place] | | | | | [address] | [address] | | | | | [place] | [phone] | | | | | [facility], | | | | | | [address] [place] [address] | | | | | | [place], [place] | | | | | | [address] | | | | | | [phone] | | | +--------+ + + + [...] Plan: Pd cell count and culture at [facility] in [place]. Vancomycin 2 gms IP and ceftazodime (tazocept) [...] Ave | | | | | | [place], [place] | | | | | | [address] | | | | | | [phone] | | | | | | | | +--------+ + + + + documented as of this encounter Visit Diagnoses Not on filedocumented in this encounter"
--- OUTSIDE RECORDS SUMMARY | ~2019-12-21 | XMS | Encounter Summary ---
Demographics + + + | Address | [address] | | | [place] [address] | + + + | Home Phone [...] | Author | [facility] | | | and [place] | + + + | Organization | [facility] | | [...] Team Providers + +------+ + | Care Precinct I Police Sergeant Name | Role | Phone | + [...] [address] [place] | | | | | [place], [place] | [facility] [address] | | | | | [address] | [phone] | | | | | [phone] | | | +--------+ + + + [...] this encounter Progress Notes Marilyn Palumbo - 09/30/2013 11:04 AM PDTHEMO progress note manually faxed to [facility] [place], e-faxed to Lianna Joy [facility] Pediatric Nephrology on 09/30. Daniela Marquez MD - 09/20/2013 2:55 PM PDT Comprehensive Dialysis Monthly Note Date of visit: 09/20/2013 Dialysis Clinic: [facility] Mode of dialysis: Hemodialysis Dialysis prescription: MWF, t=4 hrs, Na 138, K 3, bicarb 30, BFR 450, EDW 93 kg HPI: Dara Weldon is a 18 y.o. female with ESRD on hemodialysis. Pt reports feeling well. Pt denies shortness of breath, chest pain, edema, abdominal pain, fever. Pt reports she will be seeing Dr. Joy ([facility]) next month. Pt reports she has been swimming with chest catheter; pt reports she covers the site/cathet er with waterproof dressing with tape around the catheter. PROBLEM LIST: Patient Active Problem List Diagnosis Date Noted ESRD (end stage renal disease) ([facility]) Priority: High Note Last Updated: 07/29/2013 Due to Henoch-Schonlein purpura. On hemodialysis, started July 2013. Prior on peritoneal dialysis, started 2012. Access: R chest catheter. Peritonitis, dialysis-associated (HCC) 07/29/2013 Note Last Updated: 07/29/2013 Due to MSSA. Had tunneled infection as well. PD catheter removed in July 2013. On Keflex till 08/01/13. History of Henoch-Schonlein purpura Note Last Updated: 07/29/2013 Diagnosed at age 10[address] Joy, pediatric assistant. 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 Pt has been referred to [facility]. -pt will f/u with them next month cc: Lucille Griffin [facility] [place] Dr. Lianna Joy, [facility] Pediatric Nephrology documented in this encounter Plan [...]
--- OUTSIDE RECORDS SUMMARY | ~2019-12-21 | XMS | Encounter Summary ---
Demographics + + + | Address | [address] | | | [place] [address] | + + + | Home Phone [...] | | | | | [place] [address] | | + + + + + | Thania Mallory | ECON | [address] | | | | | [place] [address] | | + + + + + | Deidra Weldon | ECON | [address] | | | | | [place] | | | | | [address] | | + + + + + Care Team Providers + +------+ + | Care Deckhand Oyster Dredge Name | Role | Phone | + [...] 11/22/ | Telephone | Clinical | Kelsi aMrtinez, | Candidate donor | | 2012 | | Transplant Services | RN [address] | | | | | [address] | [facility] | | | | | [address] [place], | [place], [place] | | | | | [place] [address] | [address] | | | | | [phone] | | | +--------+ + + + [...] Ave | | | | | | [place], [place] | | | | | | [address] | | | | | | [phone] | | | | | | | | +--------+ + + + + documented as of this encounter Visit Diagnoses Not on filedocumented in this encounter"
--- OUTSIDE RECORDS SUMMARY | ~2019-12-21 | XMS | Encounter Summary ---
Demographics + + + | Address | [address] | | | [place] [address] | + + + | Home Phone [...] | Author | [facility] | | | and [place] | + + + | Organization | [facility] | | | [...] Team Providers + +------+ + | Care Photographer Portrait Name | Role | Phone | + [...] + + | 01/22/ | Refill | [facility] | Daniela Alejandre | Medication Refill | | 2019 | | CARDIOLOGY GERALD Castellanos Head Sulfide Operator | | | | | [address] | | | | | | [facility] [place] | | | | | | [address] | | | | | | [phone] | | | +--------+--------+ + + + [...]
--- OUTSIDE RECORDS SUMMARY | ~2019-12-21 | XMS | Encounter Summary ---
Demographics + + + | Address | [address] | | | [place] [address] | + + + | Home Phone [...] | Author | [facility] | | | and [place] | + + + | Organization | [facility] | | [...] Providers + +------+ + | Care Credit Collections Analyst Name | Role | Phone | [...] [address] [place] | | | | | [place], [place] | [place] [address] | | | | | [address] | [phone] | | | | | [phone] | | | +--------+ + + + [...] [facility], Sudhakar Joy MD at [facility], Doyle Diaz MD (fx: [phone]) on 08/31/15.Electronically signed by Marilyn Palumbo at [...] fairly apathetic here when interviewed in the [facility] clinic on rounds.her at tendance is better.after inquiry, she has no formal plans for employment or future education . I've encouraged her to discuss this with counselors or particularly, vocational counselor s. Otherwise, she is very pleasant here in clinic. She had some trouble with an AVF venous stenosis, and had SURFACING TECHNICIAN with an F Jonathan last week. Apparently there is stenosis at a prior endovascular stent.her BP is high this treatment 220 240 mmHg. Additionally, she is still having very large inter-dialytic weight gains.I rev iewed this with her on several occasions. Outpatient Prescriptions Marked as Taking for the 08/17/15 encounter (Documentation) with Kimberly Camp, DO Medication Sig Dispense Refill albuterol [...] After reviewing the Care Everywhere tab in [facility], I noticed that she is still being eval uated for a possible renal allograft at [facility], [facility].honestly, given her recent suboptimal compliance with fluid gains, hyperphosphatemia, and missed treatments I think anitha quarles would be at high risk for graft loss from noncompliance? Will attempt to get in touch wit sebastian Joy, Pediatric Nephrology. 4. Will recheck her in one week. I appreciate Dr. Diaz's help with her recent fistulogram . CC: Troy Fina Joy M.D., Pediatric Nephrology, [facility], [facility] Doyle Diaz M.D., IR, [facility] documented in thi s encounter Plan of Treatment Not on filedocumented as of this encounter Visit Diagnoses + + | Diagnosis | + + | ESRD (end stage renal disease) (HCC) - Primary End stage renal disease | + + documented in this encounter"
--- OUTSIDE RECORDS SUMMARY | ~2019-12-21 | XMS | Encounter Summary ---
Demographics + + + | Address | [address] | | | [place] [address] | + + + | Home Phone [...] + | Author | [facility] | | | and [place] | + + + | Organization | [facility] | | | [...] Providers + +------+ + | Care Technology Education Teacher Name | Role | Phone | + +------+ + PCP | Unavailable | + +------+ + Encounter Details +--------+ + + + + | Date | Type | Department | Care Team | Description | +--------+ + + + + | 06/12/ | Hospital | [facility] | Conversion | | | 2015 | Encounter | CENTER PREADMIT | Transaction, | | | | | CLINIC [address] | Provider Unknown | | | | | [address] [place], [place] | | | | | | [address] | (Fax) | | | | | [phone] | | | +--------+ + + + [...] Procedure Notes Conversion Transaction, Provider Unknown - 06/12/2014 1:22 PM PDTFormatting of this note m ight be different from the original. Pre-Procedure Instructions by Sulma Alanis RN at 06/12/14 0512 Author: Sulma Alanis RN Service: Anesthesiology Author Type: Registered Nurse Filed: 06/12/14 3773 Date of Service: 06/12/14 1322 Status: Signed Shingle Cutter: Sulma Alanis RN (Registered Nurse) Pt meets METS of 4 per AHA guidelines. Pt has dialysis cath in right upper chest, dialysis MWF in [place], [place]. Sees Dr Christensen dialysis . Dr Camargo is PCP. Allergic to MORPHINE, T APE (silk tape ok). No BP, IV, LAB in L arm. docume nted in this encounter Plan of [...] | | | Patient | performed at [facility];[address] | | LAB | | | [address];[place], [place] | | | | | | [address] | | | | + + + [...] | | | | | performed at [facility];[address] | | | | | | [address] [facility];[place], [place] | | | | | | [address] | | | | + + + [...] K/uL | LAB | | | | [address], | | | | | | [place] [address] | | | | + + + + + + | Non- | 3.83Comment: Testing | 3.70 - 5.10 | EXTERNAL | | | Red Blood | performed at [facility], [address] | M/uL | LAB | | | Cells | [address], | | | | | Counted | [place] [address] | | | | + + + + + + | Hemoglobin | 13.6Comment: Testing | 11.3 - 15.5 | EXTERNAL | | | | performed at [facility], [address] | g/dL | LAB | | | | [address], | | | | | | [place] [address] | | | | + + + + + + | Hematocrit, | 40.5Comment: Testing | 34.0 - 46.0 % | EXTERNAL | | | POC | performed at [facility], [address] | | LAB | | | | [address] [place], | | | | | | [place] [address] | | | | + + + + + + | MCV | 105.8 (H)Comment: | 80.0 - 100.0 fl | EXTERNAL | | | | Testing performed at | | LAB | | | | TC, [address] [facility] | | | | | | [place] | | | | | | [address] | | | | + + + + + + | MCH | 35.6 (H)Comment: Testing | 27.0 - 34.0 pg | EXTERNAL | | | | performed at [facility], [address] | | LAB | | | | [address], | | | | | | [place] [address] | | | | + + + + + + | MCHC | 33.6Comment: Testing | 32.0 - 35.5 | EXTERNAL | | | | performed at [facility], [address] | g/dL | LAB | | | | [address], | | | | | | [place] [address] | | | | + + + + + + | RDW-CV | 50.3Comment: Testing | 37 - 53 fl | EXTERNAL | | | | performed at [facility], [address] | | LAB | | | | [address], | | | | | | [place] [address] | | | | + + + + + + | Platelet | 170Comment: Testing | 150 - 400 K/uL | EXTERNAL | | | Count | performed at [facility], [address] | | LAB | | | Plasma | [address], | | | | | | [place] [address] | | | | + + + + + + | MPV | 9.5Comment: Testing | fl | EXTERNAL | | | | performed at [facility], [address] | | LAB | | | | [address], | | | | | | [place] [address] | | | | + + + + + + | Differentia | AUTOMATEDComment: | | EXTERNAL | | | l Type | Testing performed at | | LAB | | | | [facility], [address] | | | | | | [place] | | | | | | [address] | | | | + + + + + + | % Segmented | 61.53Comment: Testing | % | EXTERNAL | | | | performed at [facility], [address] | | LAB | | | Neutrophils | [address], | | | | | | [place] [address] | | | | + + + + + + | % | 26.38Comment: Testing | % | EXTERNAL | | | Lymphocytes | performed at [facility], [address] | | LAB | | | | [address], | | | | | | [place] [address] | | | | + + + + + + | % Monocytes | 8.30Comment: Testing | % | EXTERNAL | | | | performed at [facility], [address] | | LAB | | | | [address] [place], | | | | | | [place] [address] | | | | + + + + + + | % | 3.19Comment: Testing | % | EXTERNAL | | | Eosinophils | performed at [facility], [address] | | LAB | | | | [address], | | | | | | [place] [address] | | | | + + + + + + | % Basophils | 0.60Comment: Testing | % | EXTERNAL | | | | performed at [facility], [address] | | LAB | | | | [address], | | | | | | [place] [address] | | | | + + + + + + | Absolute | 5.44Comment: Testing | 1.90 - 7.40 | EXTERNAL | | | Segmented | performed at [facility], [address] | K/uL | LAB | | | Neutrophils | [address], | | | | | | [place] [address] | | | | + + + + + + | Absolute | 2.33Comment: Testing | 1.00 - 3.90 | EXTERNAL | | | Lymphocytes | performed at [facility], [address] | K/uL | LAB | | | | [address], | | | | | | [place] [address] | | | | + + + + + + | Absolute | 0.74Comment: Testing | 0.00 - 0.80 | EXTERNAL | | | Monocytes | performed at [facility], [address] | K/uL | LAB | | | | [address], | | | | | | [place] [address] | | | | + + + + + + | Absolute | 0.28Comment: Testing | 0.00 - 0.50 | EXTERNAL | | | Eosinophils | performed at [facility], [address] | K/uL | LAB | | | | [address], | | | | | | [place] [address] | | | | + + + + + + | Absolute | 0.05Comment: Testing | 0.00 - 0.10 | EXTERNAL | | | Basophils | performed at [facility], [address] | K/uL | LAB | | | | [address], | | | | | | [place] [address] | | | | + + + [...] | | | | | [place] [address] | | | | + + + + + + | K | 3.8Comment: Testing | 3.5 - 4.9 | EXTERNAL | | | | performed at [facility], [address] | mmol/L | LAB | | | | [address], | | | | | | [place] [address] | | | | + + + + + + | Cl | 94 (L)Comment: Testing | 99 - 109 mmol/L | EXTERNAL | | | | performed at [facility], [address] | | LAB | | | | [address], | | | | | | [place] [address] | | | | + + + + + + | CO2 | 31Comment: Testing | 23 - 32 mmol/L | EXTERNAL | | | | performed at [facility], [address] | | LAB | | | | [address], | | | | | | [place] [address] | | | | + + + + + + | Anion Gap | 13Comment: Testing | 5 - 20 mmol/L | EXTERNAL | | | | performed at [facility], [address] | | LAB | | | | [address], | | | | | | [place] [address] | | | | + + + + + + | Glucose, | 95Comment: Testing | 65 - 99 mg/dL | EXTERNAL | | | Fasting | performed at [facility], [address] | | LAB | | | | [address], | | | | | | [place] [address] | | | | + + + + + + | BUN | 40 (H)Comment: Testing | 8 - 25 mg/dL | EXTERNAL | | | | performed at [facility], [address] | | LAB | | | | [address], | | | | | | [place] [address] | | | | + + + + + + | Creatinine | 7.24 (H)Comment: Testing | 0.50 - 1.00 | EXTERNAL | | | | performed at [facility], [address] | mg/dL | LAB | | | | [address], | | | | | | [place] [address] | | | | + + + + + + | BUN/Creatin | 6Comment: Testing | | EXTERNAL | | | ine Ratio | performed at [facility], [address] | | LAB | | | | [address], | | | | | | [place] [address] | | | | + + + + + + | Calcium | 10.2Comment: Testing | 8.5 - 10.5 | EXTERNAL | | | | performed at [facility], [address] | mg/dL | LAB | | | | [address], | | | | | | [place] [address] | | | | + + + [...] W | | | | | | [address], | | | | | | [place] [address] | | | | + + + [...] EXTERNAL LAB | | Testing performed at [address];[place] [address] MRSA PCR | | | NEGATIVE Testing performed at | | | [facility];[address] [place] [address];[place] [address] | | + + + + +---------+ + + | Performing | Address | City/State/Zipcode | Phone Number | | Organization | | | | + +---------+ + + | EXTERNAL LAB | | | | + +---------+ + + documented in this encounter Visit Diagnoses Not on filedocumented in this encounter"
--- OUTSIDE RECORDS SUMMARY | ~2019-12-21 | XMS | Encounter Summary ---
Demographics + + + | Address | [address] | | | [place] [address] | + + + | Home Phone [...] | | | | | [place] [address] | | + + + + + | Thania Mallory | ECON | [address] | | | | | [place] [address] | | + + + + + | Deidra Wel[place] | ECON | [address] | | | | | [place] | | | | | [address] | | + + + + + Care Team Providers + +------+ + | Care Balcony Worker Name | Role | Phone | [...] | | | | | [address] [place], | [place], [place] | | | | | [place] [address] | [address] | | | | | [phone] | | | +--------+ + + + [...] Denise | | | | | | [place], [place] | | | | | | [address] | | | | | | [phone] | | | | | | | | +--------+ + + + + documented as of this encounter Visit Diagnoses Not on filedocumented in this encounter"
--- OUTSIDE RECORDS SUMMARY | ~2019-12-21 | XMS | Encounter Summary ---
Demographics + + + | Address | [address] | | | [place] [address] | + + + | Home Phone [...] | | | | | [place] [address] | | + + + + + | Thania Mallory | ECON | [address] | | | | | [place] [address] | | + + + + + | Deidra Weldon | ECON | [address] | | | | | [place] | | | | | [address] | | + + + + + Care Team Providers + +------+ + | Care Monitoring Coordinator Name | Role | Phone | [...] | | | [address] | [facility] | | | | | [place], | [place], [place] | | | | | [place] [address] | [address] | | | | | [phone] | [phone] | | | | | | | [...] Denise | | | | | | [place] | | | | | | [address] | | | | | | [phone] | | | | | | | | +--------+ + + + + documented as of this encounter Visit Diagnoses Not on filedocumented in this encounter"
--- OUTSIDE RECORDS SUMMARY | ~2019-12-21 | XMS | Encounter Summary ---
Demographics + + + | Address | [address] | | | [place] [address] | + + + | Home Phone [...] Providers + +------+ + | Care Tire Room Supervisor Name | Role | Phone | + +------+ + PCP | Unavailable | + +------+ + Encounter Details +--------+ + + + + | Date | Type | Department | Care Team | Description | +--------+ + + + + | 02/13/ | Abstract | [facility] | Jorje Camp | | | 2017 | | NEPHROLOGY [address] | M, DO [address] | | | | [address] | [address] [place] | | | | | [place], [place] | [place] [address] | | | | | [address] | [phone] | | | | | [phone] | | | +--------+ + + + [...] PSTOutside record: New patient starter program from [facility], dos: 02/12/17. Sent to [facility].Electronically signed by Marilyn Palumbo at 017 8:58 AM PSTdocumented in this encounter Plan of Treatment Not on filedocumented as of this encounter Visit Diagnoses Not on filedocumented in this encounter"
--- OUTSIDE RECORDS SUMMARY | ~2019-12-21 | XMS | Encounter Summary ---
Demographics + + + | Address | [address] | | | [place] [address] | + + + | Home Phone [...] | | | | | [place] [address] | | + + + + + | Thania Mallory | ECON | [address] | | | | | [place] [address] | | + + + + + | Deidra Weldon | ECON | [address] | | | | | [place] | | | | | [address] | | + + + + + Care Team Providers + +------+ + | Care Consultant [employer]ury [employer]. Vice President [employer] (Ex ) Name | Role | Phone | + [...] | | | | | [place], | | | | | | [place] [address] | | | +--------+ + + + [...] Denise | | | | | | [place], [place] | | | | | | [address] | | | | | | [phone] | | | | | | | [...] + + | [facility] - | [address] | [place] [address] | | | IMMUNOGENETICS/TRANS | [address] | | | | [facility] | | | | + + + + + documented in this encounter Visit Diagnoses + + | Diagnosis | + + | End stage renal disease (HCC) End stage renal disease | + + documented in this encounter"
--- OUTSIDE RECORDS SUMMARY | ~2019-12-21 | XMS | Encounter Summary ---
Demographics + + + | Address | [address] | | | [place] [address] | + + + | Home Phone [...] Providers + +------+ + | Care Retail Helper Name | Role | Phone | + +------+ + PCP | Unavailable | + +------+ + Reason for Visit + +--------+ + | Reason | Onset | Comments | | | Date | | + +--------+ + | Procedure | 02/21/ | Question | | | 2014 | | + +--------+ + Encounter Details +--------+ + + + + | Date | Type | Department | Care Team | Description | +--------+ + + + + | 02/21/ | Telephone | [facility] | Blake Chavarria | Procedure (Question) | | 2013 | | SURGERY [address] | MD Antonieta, FACS [address] | | | | | [place], [place] | [address] [facility] | | | | | [address] | [place] [address] | | | | | [phone] | [phone] | | | | | | | [...] this encounter Miscellaneous Notes Telephone Encounter - Kimberly Candelario, Master of Arts - 02/21/2014 4:06 PM Guilherme asked me to call Dara's step mother, Deidra, and father and confirm Surgery for Dara on 02/24/2014 check in at 0600 for a 0800 surgery. The patients father had called earlier and left a message requesting the surgery be moved to Monday02/25/2014 because "Dara did no t want to spend all day Monday in [place]". Dr. Chavarria had instructed Alisons at her pre op appointment to try to make arrangement with the dialysis center to move Mondays dialysis appointment to Monday so she could have her Surgery on Monday. He instructed Dara and he r step-mother to call us if the dialysis center was not able to accommodate these arrangemen ts and we would try to move her surgery to a different day. Per Ivy I tried calling the pa alissakrisserjio father but received no answer.I spoke with Dara's step mother Deidra to confirm Mon02/24/2014 surgery and she informed me that Dara did not want to go through with this surgery on that day because she only wanted to get dialysis at the [place] dialysis center which she stated does not do dialysis on Tuesdays. Deidra also stated that Dara does not want to go to the [place] or [place] dialysis center and feels she would rather miss a day of dialysis than go to another facility. I explained to Deidra that Elina ( the nurse in the dialysis center) was speaking with Ivy and arranging Yadi surgery and dialysis vi sit. I let her know that we are keeping Alisons surgery for Monday02/24/2014 and the [facility] is working with Dara on possible days and times that would work for her.Electro nically signed by Kimberly Candelario, Master of Arts at 02/21/2014 4:23 PM PSTTelephone Frederick Euceda RN - 02/21/2014 3:48 PM PSTPatient's dad called wanting to reschedule t he surgery from Monday. Called Fred at [phone] and spoke with Elina, the tech. Patient was there at that time . Elina talked to Dara's dad . Elina stated that she spoke with patient's dad who agreed to keep the surgery for Monday and dialysis following patient's discharge from surgery.. documented in this encounter Plan of Treatment Not on filedocumented as of this encounter Visit Diagnoses Not on filedocumented in this encounter
--- OUTSIDE RECORDS SUMMARY | ~2019-12-21 | XMS | Encounter Summary ---
Demographics + + + | Address | [address] | | | [place] [address] | + + + | Home Phone [...] | | | | | [place] [address] | | + + + + + | Thania Mallory | ECON | [address] | | | | | [place] [address] | | + + + + + | Deidra Weldon | ECON | [address] | | | | | [place] | | | | | [address] | | + + + + + [...] | Nephrology at | MD Emanuel [address] [facility] | | | | | [place] | Elias [place] | | | | | [facility] | [place], [place] | | | | | [address] [facility] | [address] | | | | | [place] | [phone] | | | | | [facility], | | | | | | [address] [place] [address] | | | | | | [place], [place] | | | | | | [address] | | | | | | [phone] | | | +--------+ + + + [...] Denise | | | | | | [place], [place] | | | | | | [address] | | | | | | [phone] | | | | | | | | +--------+ + + + + documented as of this encounter Visit Diagnoses Not on filedocumented in this encounter"
--- OUTSIDE RECORDS SUMMARY | ~2019-12-21 | XMS | Encounter Summary ---
Demographics + + + | Address | [address] | | | [place] [address] | + + + | Home Phone [...] | | | | | [place] [address] | | + + + + + | Thania Mallory | ECON | [address] | | | | | [place] [address] | | + + + + + | Deidra Weldon | ECON | [address] | | | | | [place] | | | | | [address] | | + + + + + Care Team Providers + +------+ + | Care Comber Tender Name | Role | Phone | [...] | | | | | [address] [place], | [place], [place] | | | | | [place] [address] | [address] | | | | | [phone] | | | +--------+ + + + [...] Denise | | | | | | [place], [place] | | | | | | [address] | | | | | | [phone] | | | | | | | | +--------+ + + + + documented as of this encounter Visit Diagnoses Not on filedocumented in this encounter"
--- OUTSIDE RECORDS SUMMARY | ~2019-12-21 | XMS | Encounter Summary ---
Demographics + + + | Address | [address] | | | [place] [address] | + + + | Home Phone [...] | Author | [facility] | | | and [place] | + [...] Team Providers + +------+ + | Care Dialysis Nurse Name | Role | Phone | + +------+ + PCP | Unavailable | + +------+ + Encounter Details +--------+ + + + + | Date | Type | Department | Care Team | Description | +--------+ + + + + | 08/21/ | Hospital | [facility] | Conversion | End stage renal | | 2015 | Encounter | CENTER CV INTRA OP | Transaction, | disease (HCC); | | | | [address] | Provider Unknown | Mechanical | | | | [place], [place] | [phone] | complication of | | | | [address] | | other vascular | | | | [phone] | Darryn Whaley, | device, implant, and | | | | | [address] | graft (HCC) | | | | | [address] [place], [place] | | | | | | [address] | | | | | | | [...] 08/21/141951 Date of Service: 08/21/141942 Status: Signed Carcass Trimmer: Darryn Whaley MD (Physician) [facility] Service: Interventional Radiology Admission History & Physical [...] GRAFT REPAIR/REVISION; Surgeon: Rik Simon MD; Location: [facility]; Service: Vascular; Laterality: Left; Declot graft Left 03/07/2014 Procedure: GRAFT - DECLOT; Surgeon: Rik Simon MD; Location: [facility]; Service: Va scular; Laterality: Left; Av fistula placement Left 04/08/2014 Procedure: AV FISTULA; Surgeon: Rik Simon MD; Location: [facility] OR; Service: Vascul ar; Laterality: Left; cephalic Dialysis fistula creation N/A 04/08/2014 Procedure: DIALYSIS CATHETER - INSERTION; Surgeon: Rik Simon MD; Location: [facility]; Service: Vascular; Laterality: N/A; tunneled catheter Laparoscopic peritoneal dialysis catheter insertion Right 07/2013 current dialysis access MWF dialysis Superficialization of av fistula Left 06/24/2014 Procedure: AV FISTULA - SUPERFICIALIZATION; Surgeon: Rik Simon MD; Location: [facility]; Service: Vascular; Laterality: Left; Allergies Allergen Reactions Morphine Rash Tape [Adhesive Tape] Rash Use silk tape only Prior to Admission medications Medication Sig Start Date End Date Taking? Authorizing Provider cinacalcet (SENSIPAR) 30 MG tablet Take 60 mg by mouth daily. Yes Historical Provider folic acid-vitamin b complex-vitamin x-zlvdnece-fpil (DIALYVITE) 3 MG TABS Take 1 tablet [...] of tonsils, uvula and soft palate Disposition: [place] Code Status: Prior Primary Care Physician: OCTAVIO [...] venous anastomosis without incidence. | | | [address], 95881, 95446, [address] | | + + + + + [...] conscious sedation and | | | independent retirement supervision performed throughout the | | | [...] | | | needle and exchanged for 4-Sudanese micropuncture sheath. Initial | | | fistula [...] | | needle and exchanged for 4 Sudanese short sheath over 0.03, angled | | | Glidewire. Subsequently, Glidewire was exchanged for 0.014, mailman | | | wire over 4 Sudanese angled glide catheter. Then, 4 mm x [...] Rad Conversion - 10/19/2018 6:38 AM PDT [facility] | | FISTULAGRAM08/21/2014 6:01 PM HISTORY:18 [...] adequate conscious sedation and independent | | retirement supervision performed throughout the procedure. PROCEDURE: Informed [...] micropuncture needle and exchanged | | for 4-Sudanese micropuncture sheath. Initial fistula pressure was obtained [...] | micropuncture needle and exchanged for 4 Sudanese short sheath over 0.03, angled | | Glidewire. Subsequently, Glidewire was exchanged for 0.014, mailman wire over 4 Sudanese | | angled glide catheter. Then, 4 [...] arterial venous | | anastomosis without incidence. 96170, 54930, 87041, 27830 | | | | | |13823, 93857, [address]9419, [address] | | | | | + + [...] venous anastomosis without incidence. | | | 14663, 26944, [address]016, [address] | | + + + + + [...] conscious sedation and | | | independent retirement supervision performed throughout the | | | [...] | | | needle and exchanged for 4-Sudanese micropuncture sheath. Initial | | | fistula [...] | | needle and exchanged for 4 Sudanese short sheath over 0.03, angled | | | Glidewire. Subsequently, Glidewire was exchanged for 0.014, mailman | | | wire over 4 Sudanese angled glide catheter. Then, 4 mm x [...] adequate conscious sedation and independent | | retirement supervision performed throughout the procedure. PROCEDURE: Informed [...] micropuncture needle and exchanged | | for 4-Sudanese micropuncture sheath. Initial fistula pressure was obtained [...] | micropuncture needle and exchanged for 4 Sudanese short sheath over 0.03, angled | | Glidewire. Subsequently, Glidewire was exchanged for 0.014, mailman wire over 4 Sudanese | | angled glide catheter. Then, 4 [...] arterial venous | | anastomosis without incidence. 26358, 40112, 32071, 70283 | | | | | |02868, 26497, 37598, 36125 | | | | | + + documented in this encounter Visit Diagnoses + + | Diagnosis | + + | End stage renal disease (HCC) End stage renal disease | + + | Mechanical complication of other vascular device, implant, and graft | + + documented in this encounter
--- OUTSIDE RECORDS SUMMARY | ~2019-12-21 | XMS | Encounter Summary ---
Demographics + + + | Address | [address] | | | [place] [address] | + + + | Home Phone [...] | Author | [facility] | | | and [place] | + + + | Organization | [facility] | | [...] Providers + +------+ + | Care News Internship Name | Role | Phone | [...] [address] [place] | | | | | [place], [place] | [place] [address] | | | | | [address] | [phone] | | | | | [phone] | | | +--------+ + + + [...]
--- OUTSIDE RECORDS SUMMARY | ~2019-12-21 | XMS | Encounter Summary ---
Demographics + + + | Address | [address] | | | [place] [address] | + + + | Home Phone [...] Team Providers + +------+ + | Care Room Service Bellhop Name | Role | Phone | + [...] Linda [address] | Pre-evaluation (left | | | | KIDNEY TRANSPLANT | [place] [address], | voice mail for pt | | | | [address] [place] | [place] [address] | to return call to | | | | [address] | [phone] | complete intake | | | | [address] | | quest.) | | | | [phone] | | | +--------+ + + + [...] complete intake boo love. documented in this enco unter Plan of Treatment Not on filedocumented as of this encounter Visit Diagnoses Not on filedocumented in this encounter"
--- OUTSIDE RECORDS SUMMARY | ~2019-12-21 | XMS | Encounter Summary ---
Demographics + + + | Address | [address] | | | [place] [address] | + + + | Home Phone [...] Team Providers + +------+ + | Care Licensed Practical Vocational Nurse Name | Role | Phone | + +------+ + | Jonathan Alonso MD | PCP | | + +------+ + Encounter Details +--------+ + + + + | Date | Type | Department | Care Team | Description | +--------+ + + + + | 10/17/ | Hospital | [facility] | Nikita, | ESRD (end stage | | 2019 - | Encounter | [facility] | MD Naresh [address] | renal disease) | | | | CARE FLOOR [phone] | ([facility]); Dilated | | 10/22/ | | [address] | [place] [address] | cardiomyopathy | | 2019 | | [place], [place] | [phone] | ([facility]); | | | | [address] | | Non-cardiogenic | | | | [phone] | Gerber Pearson MD | pulmonary edema; | | | | | [address] | Anemia in ESRD | | | | | [place] [address] | (end-stage renal | | | | | [phone] | disease) ([facility]); | | | | | [...] failure | | | | | | ([facility]); At high risk | | [...] is to follow up with her regular cytology laboratory manager, Dr. Hurtado. DISCHARGE DIAGNOSES: 1. End-stage renal [...] Surgeon: Blake Chavarria MD ; Location: [facility] MAIN OR AV FISTULA REPAIR Left 03/07/2014 Procedure: AV FISTULA - GRAFT REPAIR/REVISION; Surgeon: Rik Simon MD; Location: [facility] IN OR; Service: Vascular; Laterality: Left; biopsy of kidney age 10 DIALYSIS FISTULA CREATION 04/08/2014 Procedure: DIALYSIS CATHETER - INSERTION; Surgeon: Rki Simon MD; Location: [facility] MAIN OR ; Service: Vascular; Laterality: N/A; tunneled catheter.br hemodialysis catheter KIDNEY BIOPSY Left 2003 OTHER SURGICAL HISTORY LAPAROSCOPIC PERITONEAL DIALYSIS CATHETER INSERTION - x2 OTHER SURGICAL HISTORY Right 07/2013 LAPAROSCOPIC PERITONEAL DIALYSIS CATHETER INSERTION - current dialysis access MWF dialysis OTHER SURGICAL HISTORY Left 06/24/2014 SUPERFICIALIZATION OF AV FISTULA - Procedure: AV FISTULA - SUPERFICIALIZATION; Surgeon: Emanuel Simon MD; Location: [facility] MAIN OR; Service: Vascular; Laterality: Left; OTHER SURGICAL HISTORY Left 04/08/2014 AV FISTULA PLACEMENT - Procedure: AV FISTULA; Surgeon: Rik Simon MD; Location: [facility] N OR; Service: Vascular; Laterality: Left; cephalic OTHER SURGICAL HISTORY Left 03/07/2014 DECLOT GRAFT - Procedure: GRAFT - DECLOT; Surgeon: Rik Simon MD; Location: [facility] MAIN OR ; Service: Vascular; [...] have: Continued coughing Fever Date Last Reviewed: 02/04/201619993594-7227 [employer]. [address] [place] [address]. All righ ts reserved. This information is [...] by your healthcare provider Date Last Reviewed: 12/05/201519991766-7811 [employer]. [address] [place] [address]. All righ ts reserved. This information is [...] | | | | | renal disease) ([facility]) | protocol | | | [...] + + +---------+ + + | B [id number]-Dsfia | Take 1 tablet by | | [...] I have discussed the case with the CHIP LOFT WORKER. I agree with his findings & documentation. [...] NEPHROLOGY Progress Note Dara Weldon 23 y.o. [id number] female Jonathan Alonso MD Hospital Day: [...] Surgeon: Blake Chavarria MD ; Location: [facility] MAIN OR AV FISTULA REPAIR Left 03/07/2014 Procedure: AV FISTULA - GRAFT REPAIR/REVISION; Surgeon: Rik Simon MD; Location: [facility]; Service: Vascular; Laterality: Left; biopsy of kidney age 10 DIALYSIS FISTULA CREATION 04/08/2014 Procedure: DIALYSIS CATHETER - INSERTION; Surgeon: Rik Simon MD; Location: [facility] OR ; Service: Vascular; Laterality: N/A; tunneled catheter.br hemodialysis catheter KIDNEY BIOPSY Left 2003 OTHER SURGICAL HISTORY LAPAROSCOPIC PERITONEAL DIALYSIS CATHETER INSERTION - x2 OTHER SURGICAL HISTORY Right 07/2013 LAPAROSCOPIC PERITONEAL DIALYSIS CATHETER INSERTION - current dialysis access MWF dialysis OTHER SURGICAL HISTORY Left 06/24/2014 SUPERFICIALIZATION OF AV FISTULA - Procedure: AV FISTULA - SUPERFICIALIZATION; Surgeon: Emanuel Simon MD; Location: [facility] OR; Service: Vascular; Laterality: Left; OTHER SURGICAL HISTORY Left 04/08/2014 AV FISTULA PLACEMENT - Procedure: AV FISTULA; Surgeon: Rik Simon MD; Location: [facility]; Service: Vascular; Laterality: Left; cephalic OTHER SURGICAL HISTORY Left 03/07/2014 DECLOT GRAFT - Procedure: GRAFT - DECLOT; Surgeon: Rik Simon MD; Location: [facility] OR ; Service: Vascular; Laterality: Left; [...] MR, severe TR.severe pulmonary hyperten arturo Chest g-jzu-eqhsagnfygph with pulmonary edema and large right pleural [...] earlier and charting completed later Dictation software, [employer], used which may contain error for similar [...] BUN 90 on admission -History of a Brule Schnlein purpura -Last hemodialysis approximately 2 weeks [...] M D - 10/20/2018 9:09 AM PDT [facility] [...] BUN 90 on admission -History of a Brule Schnlein purpura -Last hemodialysis approximately 2 weeks [...] might be different from t chacha original. [facility] Service: NEPHROLOGY Dialysis Note Dara Weldon 23 y.o. [id number]/[id number] female Jonathan Alonso MD Hospital Day: [...] Left; Surgeon: Blake Chavarria MD ; Location: [facility] OR AV FISTULA REPAIR Left 03/07/2014 Procedure: AV FISTULA - GRAFT REPAIR/REVISION; Surgeon: Rik Simon MD; Location: [facility]; Service: Vascular; Laterality: Left; biopsy of kidney age 10 DIALYSIS FISTULA CREATION 04/08/2014 Procedure: DIALYSIS CATHETER - INSERTION; Surgeon: Rik Simon MD; Location: [facility] OR ; Service: Vascular; Laterality: N/A; tunneled catheter.br hemodialysis catheter KIDNEY BIOPSY Left 2003 OTHER SURGICAL HISTORY LAPAROSCOPIC PERITONEAL DIALYSIS CATHETER INSERTION - x2 OTHER SURGICAL HISTORY Right 07/2013 LAPAROSCOPIC PERITONEAL DIALYSIS CATHETER INSERTION - current dialysis access MWF dialysis OTHER SURGICAL HISTORY Left 06/24/2014 SUPERFICIALIZATION OF AV FISTULA - Procedure: AV FISTULA - SUPERFICIALIZATION; Surgeon: Emanuel Simon MD; Location: [facility] MAIN OR; Service: Vascular; Laterality: Left; OTHER SURGICAL HISTORY Left 04/08/2014 AV FISTULA PLACEMENT - Procedure: AV FISTULA; Surgeon: Rik Simon MD; Location: [facility]; Service: Vascular; Laterality: Left; cephalic OTHER SURGICAL HISTORY Left 03/07/2014 DECLOT GRAFT - Procedure: GRAFT - DECLOT; Surgeon: Rik Simon MD; Location: [facility] OR ; Service: Vascular; Laterality: Left; [...] MR, severe TR.severe pulmonary hyperten arturo Chest d-xai-netceimbcfpk with pulmonary edema and large right pleural [...] earlier and charting completed later Dictation software, [employer], used which may contain error for similar [...] Fall-Related Injury Outcome: Ongoing, progressing Patient educated test inspection engineer light use, bed in lowest position, and [...] [facility] | | | | performed at [facility], [address] | | LABORATORY | | | | [address], | | | | | | [place] [address] | | | | + + + + + + + + | Specimen | + + | Blood | + + + + + + + | Performing | Address | City/State/Zipcode | Phone Number | | Organization | | | | + + + + + | [facility] | [address] | [place] [address] | [phone] | + + + + + Basic [...] 7 (L)Comment: GFR <60: | >60 | [facility] | | | GFR | [...] | | | | performed at [facility], [address] | | | | | | [facility], | | | | | | [place] [address] | | | | + + + + + + + + | Specimen | + + | Blood - Right upper | | arm structure (body | | structure) | + + + + + + + | Performing | Address | City/State/Zipcode | Phone Number | | Organization | | | | + + + + + | [facility] | [address] | [place] [address] | [phone] | + + + + + Basic [...] 11 (L)Comment: GFR <60: | >60 | [facility] | | | GFR | [...] | | | | | | MDRD IDCO traceable | | | | | | equation.Testing | | | | | | performed at [facility], [address] | | | | | | [facility], | | | | | | [place] [address] | | | | + + + + + + + + | Specimen | + + | Blood - Right upper | | arm structure (body | | structure) | + + + + + + + | Performing | Address | City/State/Zipcode | Phone Number | | Organization | | | | + + + + + | [facility] | [address] | [place] [address] | [phone] | + + + + + Basic [...] 9 (L)Comment: GFR <60: | >60 | [facility] | | | GFR | [...] performed at [facility];[address] | | | | | | [facility];[place], [place] | | | | | | [address] | | | | + + + + + + + + | Specimen | + + | Blood - Right upper | | arm structure (body | | structure) | + + + + + + + | Performing | Address | City/State/Zipcode | Phone Number | | Organization | | | | + + + + + | [facility] | [id number] | [place] [address] | [phone] | + + + + + documented in this encounter Visit Diagnoses + + | Diagnosis | + + | Non-cardiogenic pulmonary edema - Primary Pulmonary congestion and hypostasis | + + | ESRD (end stage renal disease) ([facility]) End stage renal disease | + + | Dilated cardiomyopathy ([facility]) Other primary cardiomyopathies | + + | Anemia in ESRD (end-stage renal disease) ([facility]) Anemia in chronic kidney disease [...] | | | [place] [address], | | + +---+ | | | [...]
--- OUTSIDE RECORDS SUMMARY | ~2019-12-21 | XMS | Encounter Summary ---
Demographics + + + | Address | [address] | | | [place] [address] | + + + | Home Phone [...] Team Providers + +------+ + | [employer] Salesperson Name | Role | Phone | [...] Encounter | CONVERSION | MD Emanuel [address] [facility] | | | | | DEPART[address] | [address] | | | | [address] | [place], [place] | | | | | [place], [place] | [address] | | | | | [address] | [phone] | | | | | [phone] | | | +--------+ + + + [...]
--- OUTSIDE RECORDS SUMMARY | ~2019-12-21 | XMS | Encounter Summary ---
[...] Providers + +------+ + | Care Oil Rag Washer Name | Role | Phone | + +------+ + | Jonathan Alonso MD | PCP | | + +------+ + Reason for Visit + + + | Reason | Comments | + + + | Shortness of Breath | missed multiple dialysis tx | + + + Auth/Cert +--------+--------+ + + + + | Status | Reason | Specialty | Diagnoses / | Referred By | Referred To | | | | | Procedures | Contact | Contact | +--------+--------+ + + + + | | | | Diagnoses | | | | | | | Pleural | | | | | | | effusion | | | | | | | ESRD needing | | | | | | | dialysis | | | | | | | (HCC) | | | +--------+--------+ + + + + Encounter Details +--------+ + + + + | Date | Type | Department | Care Team | Description | +--------+ + + + + | 10/12/ | Emergency | [facility] | Vivek Teran, | ESRD needing | | 2019 - | | [facility] | [address] | dialysis (HCC) | | | | CARE FLOOR [address] | [place] [address] | (Primary Dx); | | 10/14/ | | [address] | [phone] | Pleural effusion; | | 2019 | | [place], [place] | | SOB (shortness of | | | | [phone] | Mary Mckay MD | breath); Acute on | | | | [phone] | [address] | chronic congestive | | | | | [place] [address] | heart failure, | | | | | [phone] | unspecified heart | | | | | | failure type ([facility]); | | | | | Shelley Harper | Acute on chronic | | | | | MD Jimenez [address] | 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 | | | | | [place] [address] | (congestive heart | | | | | [phone] | failure) ([facility]); | | | | | | Acute on chronic | | | | | Joey Carlson | respiratory failure | | | | | Herbert Wellington MD | with hypoxia ([facility]); | | | | | [address] | Chest pain at rest; | | | | | [place] [address] | GERD with | | | | | [phone] | esophagitis; | | | | | | Hypertensive | | | | | | urgency; Moderate | | | | | | episode of recurrent | | | | | | major depressive | | | | | | disorder ([facility]); | | | | | | Moderate to severe | | | | | | pulmonary | | | | | | hypertension ([facility]); | | | | | | Noncompliance; | | | | | | Troponin I above | | | | | | reference range | +--------+ + + + + Social [...] + + + | Blood Pressure | 154/93 | 10/15/2019 6:00 PM | | | | | PDT | | + + + + + | Pulse | 67 | 10/15/2019 3:57 PM | | | | | PDT | | + + + + + | Temperature | 36.7 C (98 F) | 10/15/2019 3:57 PM | | | | | PDT | | + + + + + | Respiratory Rate | 18 | 10/15/2019 3:57 PM | | | | | PDT | | + + + + + | Oxygen Saturation | 99% | 10/15/2019 10:45 AM | | | | | PDT | | + + + + + | Inhaled Oxygen | - | - | | | Concentration | | | | + + + + + | Weight | 72 kg (158 lb 11.7 | 10/14/2019 5:11 AM | | | | oz) | PDT | | + + + + + | Height | 170.2 cm (5' 7") | 10/14/2019 5:11 AM | | | | | PDT | | + + + + + | Body Mass Index | 24.86 | 10/14/2019 5:11 AM | | | | | PDT | | + + + + + documented in this encounter Functional Status + + + + | Functional Status | Response | Date of Assessment | + + + + | Are you deaf or do you have serious | No | 10/14/2019 | | difficulty hearing? | | | + + + + | Are you blind or do you have serious | No | 10/14/2019 | | difficulty seeing, even when wearing | | | | glasses? | | | + + + + | Do you have serious difficulty walking or | No | 10/14/2019 | | climbing stairs? (5 years old or older) | | | + + + + | Do you have difficulty dressing or bathing? | No | 10/14/2019 | | (5 years old or older) | | | + + + + | Because of a physical, mental, or emotional | No | 10/14/2019 | | condition, do you have difficulty [...] physical, mental, or emotional | No | 10/14/2019 | | condition, do you have serious difficulty | | | | concentrating, remembering, or making | | | | decisions? (5 years old or older) | | | + + + + documented as of this encounter Discharge Summaries Joey Carlson MD - 10/15/2019 12:48 PM PDT Patient: Dara Weldon : 1995 Date of Admission: 10/13/2019 Date of Discharge: 10/15/2019 Treatment Team: Billie Gupta MD Discharging Provider: Joey Carlson MD Discharge Diagnoses: Principal Problem: Acute on chronic combined systolic and diastolic CHF (congestive heart failure) Active Problems: ESRD on hemodialysis Recurrent right pleural effusion Secondary hyperparathyroidism Chronic right-sided heart failure Hyperphosphatemia Moderate to severe pulmonary hypertension Non-compliance Troponin I above reference range Chest pain at rest Major depressive disorder GERD with esophagitis Fluid overload Resolved Problems: Acute on chronic respiratory failure with hypoxia Hypertensive urgency Procedures Performed: . Hemodialysis Chief Complaint: Shortness of Breath (missed multiple dialysis tx) Hospital Course: The patient is a 24 y.o. female with significant past medical history of IgA vasculitis/Hen och-Schnlein purpura, now end-stage renal disease on maintenance hemodialysis Monday followed by complicated with vascular access thrombosis status post jaciel nt on Plavix. Essential hypertension, chronic combined congestive heart failure, moderate M R severe TR cor pulmonale and severe pulmonary hypertension on home O2 2 L nasal cannula as needed. History of noncompliance. Missed hemodialysis sessions leading to fluid overload. Recurrent right pleural effusion was tapped in the past. Pericardial effusion without byrd ponade. Depression. The patient presented with shortness of breath likely related to missed dialysis sessions. 1. Fluid overload with associated acute on chronic combined systolic and diastolic heart f ailure, cor pulmonale, severe pulmonary hypertension and acute on chronic hypoxic respirator y failure Appreciate nephrology consult, patient underwent hemodialysis, patient reported symptom imp rovement after hemodialysis sessions. 2. Depression Patient reported that her reason for missing dialysis sessions was depression. Appreciate psych consult, need follow-up with outpatient provider. Patient was counseled. She denies having any suicidal thoughts, denies hallucinations. Patient reported that she will be more compliant on antidepressants. Needs to follow-up with PCP 3. Hyperphosphatemia Sevelamer increased to 4 tablets with meals 4. Hypertensive urgency Related to problem #1 Increase the valsartan, continue usual carvedilol dose Discharge Exam and Data: Vital Signs: BP 137/82 | Pulse 64 | Temp 37 C (98.6 F) (Oral) | Resp 14 | Ht 1.702 m (5' 7") | Wt 72 kg (158 lb 11.7 oz) | LMP (LMP Unknown) | SpO2 99% | No | BMI 24.86 kg/m Physical Exam Cardiovascular: Rate and Rhythm: Normal rate and regular rhythm. Heart sounds: No murmur. Pulmonary: Effort: No respiratory distress. Breath sounds: No wheezing or rales. Neurological: Mental Status: She is alert. Psychiatric: Mood and Affect: Mood normal. Behavior: Behavior normal. Recent Labs BMP 135 100 33* 83 4.9 28 7.20* CaMgPhos 9.2 2.3 9.5* LFT 20 114 28 4.5 CBC 4.53 8.9* 123* 28.8* Coag Last labs from current encounter as of 10/15/19-12:49 PDT Recent Radiology Results Chest [id number] right pleural effusion with associated multisegmental right basilar atelectasis. Discharge Information: Follow up: Jonathan Alonso MD [address] [place] [address] In 1 week recheck depression and medical compliance Current active diet order is: Diet Diet renal; potassium 3 gm K, phosphorus restricted <1200 mg per day; sodium restricted 2 gm; 60 gm CARB/Meal; 1000 ml fluid; Effective Now Discharge Medications Changed Medications Details doxercalciferol 2 mcg/mL injection Inject 0.5 mLs into the vein Three times a week. Per dialysis clinic protocol What changed: how much to take aka: HECTOROL sevelamer carbonate 800 mg tablet Take 4 tablets by mouth 3 times daily (with meals). What changed: how much to take aka: RENVELA valsartan 320 MG tablet Take 1 tablet by mouth Daily. What changed: medication strength how much to take Another medication with the same name was removed. Continue taking this medication, and follow the directions you see here. aka: DIOVAN Unchanged Medications Details albuterol 90 mcg/puff inhaler [...] daily. aka: FLOVENT HFA ondansetron 4 mg disintegrating tablet Take 1 tablet by mouth every 8 hours as needed for Nausea. aka: ZOFRAN ODT pantoprazole 40 mg tablet Take 40 mg by mouth every morning before breakfast. aka: PROTONIX PARSABIV 2.5 mg/0.5 mL injection Generic drug: etelcalcetide Inject 2.5 mg into the vein Three times a week. promethazine 25 mg tablet Take 1 tablet by mouth every 8 hours as needed. aka: PHENERGAN VENOFER 20 mg/mL injection Generic drug: iron sucrose Inject 2.5 mLs into the vein Once a week. . Disposition: home Condition: Stable Code Status: Full Code Discharge took more than 30 minutes, to include final examination, discussion of admission, and preparation of prescriptions, instructions for on-going care, follow-up and documentati on of discharge summary. Joey Carlson MD, [facility] 12:49 PM PDT 10/15/2019 docum ented in this encounter Discharge Instructions Instructions Douglas Greenberg RN - 10/15/2019Encouraged compliance to Hemodialysis and medi cations, next schedule is tomorrow What is Coronavirus? The Novel Coronavirus 2019 (COVID-19) is a new virus strain that is spread mainly from pers ow-oi-wnxsqd through respiratory droplets when an infected person coughs or sneezes. Symptom s may appear 2-14 days after exposure. Reported illnesses have ranged from mild symptoms to severe illness and for confirmed cases. Some people testing positive for COVID-19 have no symptoms at all (asymptomatic). The most common symptoms include: ? Cough ? Shortness of breath or difficulty breathing ? Fever ? Chills ? Muscle pain ? Sore throat ? New loss of taste or smell COVID-19 is most commonly spread from an infected person to others through: ? Between people who are in close contact with one another (within about 6 feet). ? Respiratory droplets produced by coughing and sneezing. These droplets can land in the mo uths or nose of people who are nearby or possibly be inhaled into the lungs. ? Touching a surface with the virus on it and then touching your mouth, nose, or eyes befor e washing your hands. How to protect yourself ? Avoid touching your eyes, nose and mouth with unwashed hands. ? Wash your hands often with soap and water for at least 20 seconds. This is especially imp ortant after blowing your nose, coughing, or sneezing; going to the bathroom; and before eat ing or preparing food. ? If soap and water are not available, use an alcohol-based hand end matcher with at least 60 % alcohol covering all surfaces of your hands and rubbing them together until they feel dry. ? Cover your cough or sneeze with a tissue, then throw the tissue in the trash. (Putting a tissue on a table contaminates the surface of the table with germs.) ? Routinely disinfect frequently touched objects and surfaces, using a cleaning spray or wi pe. ? Avoid travel to high-risk countries. Non-essential travel to or through any of the countr ies for which the CDC has issued a level 2 or 3 travel health notice is discouraged. https://www.cdc.gov/coronavirus/2019-ncov/travelers/index.html ? Stay at least 6 feet away from others when in public places, do not gather in groups, sta y out of crowded places, and avoid mass gatherings to slow the spread of the virus. ? Use of a simple cloth face covering to slow the spread of the virus in public settings wh ere it's hard to stay away from others, such as in grocery stores, pharmacies, and other are as where the virus might easily spread. Cloth masks do not protect the wearer but instead h old in droplets from sneezing or coughing to prevent spreading to other people and surfaces. Cloth face coverings fashioned from household items or made at home from common materials a t low cost can be used. It is not recommended to use surgical masks or N-95 respirators. A few definitions that you should be familiar with regarding COVID-19: Quarantine is used to keep someone who might have been exposed to COVID-19 away from others . Isolation is used to separate people infected with the virus (those who are sick from COVID -19 and those with no symptoms) from people who are not infected. Both quarantine and isolation are similar that they: ? involve separation of people to protect the public ? help limit further spread of COVID-19 ? can be done voluntarily or be required by health authorities What to do if you are sick? ? If you have a fever and cough, you may have COVID-19. Notify your medical provider. ? Stay home except to get medical care (see for Home Isolation) ? Monitor your symptoms When you should seek medical evaluation and advice? ? Call 911 if you have a medical emergency such as trouble breathing, persistent pain or pr essure in the chest, and/or bluish lips or face. If you have a medical emergency and need to call 911, notify the yard operator that you have or think you might have, COVID-19. If possible, put on a facemask before medical help arrives. ? If you are 65 and older, or have underlying conditions such as , heart disease, diabetes, lung disease and weakened immune system, work with your doctor to develop a plan t o determine your health risks to COVID-19 and how to manage symptoms. If you do have symptom s, contact your doctor immediately. ? For worsening symptoms or difficulty breathing, please contact your primary care provider or consider a virtual visit. ? If you do not have a high-risk condition and your symptoms are mild, you do not need to b e evaluated in person and do not need to be tested for COVID-19. (Please see Home Quarantin e and Isolation Instructions below) ? We ask that you please avoid coming to the emergency department, unless you have a health emergency and/or you have been advised by a provider to do so. This helps prevent the risk of spreading this disease and further exposure in our community and allows us to dedicate cr itical and limited emergency resources to those who are very sick. Who should be tested? A common question right now is, Why can't I get tested? The answer: Not everyone need s to be tested. Given the short supply of testing supplies and protective equipment for our health care workers, the CDC recommends that people who are hospitalized, healthcare worker who have COVID-19 symptoms, residents in nursing facilities or mcc communities or home health, or those who are high risk (older adults, chronic diseases, immunosuppressed) s hould be prioritized for testing. These recommendations may evolve to include more people ov er time, as this situation is evolving rapidly. It is not recommended to test individuals wh o do not have COVID-19 symptoms. What to do if you think you have been exposed to COVID-19? If you feel healthy but recently had close contact with a person known to have COVID-19, yo u need to self-quarantine. Follow the self-quarantine instructions listed below: ? Check your temperature twice a day ? Stay home for 14 days from the time of exposure and self-monitor for fever, cough, and sh ortness of breath. ? Contact your medical provider if your temperature is greater than 100.4 and you develop c ough or shortness of breath. ? If possible, stay away from people who are high-risk for getting very sick from COVID-19. Does this mean my family or other people I live with need to self-quarantine? Other members of the household are not required to self-quarantine, unless they have been t old by a medical professional to do so. If you develop symptoms and are suspected to have CO VID-19, members of the household will be classified as close contacts and will then need to be in self-quarantine. Please speak to your health care provider and/or health department fo r further instructions. What are the guidelines for home quarantine and home isolation? ? Restrict activities outside your home, except for seeking medical care. ? Do not go to work, another person's home, school or public areas. ? Do not use public transportation. ? Cover coughs and sneezes. ? Avoid close contact with household members. When this is not possible, stay at least 6 fe et from other people and wear a cloth face covering. During the COVD-19 pandemic, medical-gr lucy masks are reserved for healthcare workers. ? Use separate sleeping and bathroom/bathing facilities, if feasible. ? Wash your hands often with soap and water for at least 20 seconds. This is especially imp ortant after blowing your nose, coughing, or sneezing; going to the bathroom; and before eat ing or preparing your food. ? Use hand end matcher if soap and water are not available. Use an alcohol-based hand sanitiz er with at least 60% alcohol, covering all surfaces of your hands and rubbing them together until they feel dry ? Cover your mouth and nose with a tissue when you cough or sneeze. Throw away used tissues in a lined trash can. Wash your hands afterwards. ? Clean and disinfect high-touch surfaces in your sick room and bathroom with a house hold disinfectant. High-touch surfaces include phones, remote controls, counters, doorknobs, tabletops, bathroom fixtures, toilets, keyboards, and bedside tables. Let someone else do n and disinfect surfaces in common areas, but not your bedroom and bathroom. ? Avoid sharing personal household items (dishes, drinking glasses, cups, eating utensils, towels, or bedding) with other people or pets in your home. After using these items, they sh ould be washed thoroughly with soap and water or in the fine wire drawer/washer. ? Call ahead before visiting your doctor. This will help the healthcare provider's office t carlos steps to keep other people from getting infected or exposed. ? If you have been tested for COVID-19, stay home until your healthcare provider contacts y ou about your test results. When should I discontinue self-quarantine? If you have tested positive for COVID-19, you can leave home after these three things have happened: ? At least 3 days (72 hours) have passed since resolution of fever (temperature less than 1 00.0F or 37.8C) without the use of fever-reducing medications (e.g. Tylenol, Ibuprofen) AND ? At least 3 days of improvement in respiratory symptoms (e.g. cough, shortness of breath) AND ? At least 10 days have passed since symptoms first appeared If you have tested positive for COVID-19 and are retested, you can leave home after these t hree things have happened: ? Resolution of fever (temperature less than 100.0F or 37.8C) without the use of fever-redu cing medications (e.g. Tylenol, Ibuprofen) AND ? Improvement in respiratory symptoms (e.g. cough, shortness of breath) AND ? Negative test results of COVID-19 from at least two consecutive samples collected 24 hrs or more apart If you are waiting for COVID-19 test results or you are symptomatic but did not require barry ting, you can leave home after the following things have happened: ? At least 3 days (72 hours) have passed since resolution of fever (temperature less than 1 00.0F or 37.8C) without the use of fever-reducing medications (e.g. Tylenol, Ibuprofen) and at least 3 days of improvement in respiratory symptoms (e.g., cough, shortness of breath), a nd at least 10 days have passed since symptoms first appeared. OR ? Two negative test results received and at least 24 hours have passed since resolution of fever (temperature less than 100.0F or 37.8C) without the use of fever-reducing medications (e.g. Tylenol, Ibuprofen). How is COVID-19 treated? Most people with COVID-19 will recover on their own. There is no specific antiviral treatm ent recommended for COVID-19 at this time. People with COVID-19 should receive supportive ca re to help relieve symptoms. For severe cases, treatment should include care to support sumeet l organ functions. Additional Information For up-to-date information about coronavirus and the community public health response, visi t your local public health website. CDC: COVID-19: https://www.cdc.gov/coronavirus/2019-ncov/index.html [place] Coronavirus Advisory: https://www.[facility].org/vsvmwrey-ahc-aqivgolv/coron avirus-advisory Virtual Visits Available https://virtual.[employer].org/ documented in this encounter Medications at Time [...] tablet by | 30 | 0 | 10/15/19 | | | (CELEXA) 20 mg | mouth Daily. | tablet | | 20 | | | tablet | | | [...] | | | | | renal disease) ([facility]) | protocol | | | [...] sevelamer | Take 4 tablets by | 270 | 0 | 10/15/19 | | | carbonate (RENVELA) | mouth 3 times daily | tablet | | 20 | | | 800 mg tablet | (with meals). | | | | | + + + +---------+ + + | valsartan (DIOVAN) | Take 1 tablet by | 30 | 0 | 10/15/19 | | | 320 MG tablet | mouth Daily. | tablet | | 20 | | + + + +---------+ + + documented as of this encounter Progress Notes Douglas Greenberg RN - 10/15/2019 6:57 PM PDTPatient discharged home with family. Patient's VS stable. Patient appeared comfortable. Patient received AVS and information about medicat ion changes, follow-up appointments, the importance of compliance with dialysis, covid19 blanca e instructions. Patient verbalized understanding. Patient had no questions. Patient's IV was removed prior to discharge. Patient left with all of her belongings. Hailee Stahl RN - 10/14/2019 7:46 PM PDTPatient continues to report headache 10/13, prn morphine administered. Patient's nausea h as improved, tolerating a general diet with increased appetite. Receive Dialysis today, 2L removed, patient tolerated it well. BP elevated during shift, administered hydralazine x1. Telesitter in room. End of shift audit completed. 7 :48 PM Hailee Stahl RN - 10/14/2019 12:12 PM PDTPatient continues to report nausea, headache 09/12. Offered patient Tylenol for headache, she refused. Ice pack provided, light s off. Patient resting. Dialysis in progress. Will administer more pain and nausea medica tion when at due time. Will continue to monitor this shift. documented in this encounter H&P Notes Mary Mckay MD - 10/14/2019 3:33 AM PDTFormatting of this note might be different fro m the original. [facility] Service: Hospitalist Admission History & Physical Date of Admission: 10/13/2019 Primary Care Physician: Jonathan Alonso MD Reason for Admission: Acute CHF exacerbation, acute on chronic hypoxic respiratory failure. Noncompliance with dialysis. Pain rule out ACS. Recurrent right pleural effusion. History Obtained From: History obtained from chart review and the patient. CHIEF COMPLAINT: Chief Complaint Patient presents with Shortness of Breath missed multiple dialysis tx HISTORY OF PRESENT ILLNESS The patient is a 24 y.o. female with significant past medical history of IgA vasculitis/Hen och-Schnlein purpura, now end-stage renal disease on maintenance hemodialysis Monday followed by complicated with vascular access thrombosis status post jaciel nt on Plavix. Essential hypertension, chronic combined congestive heart failure, moderate M R severe TR cor pulmonale and severe pulmonary hypertension on home O2 2 L nasal cannula as needed. History of noncompliance. Missed hemodialysis sessions leading to fluid overload. Recurrent right pleural effusion was tapped in the past. Pericardial effusion without byrd ponade. Depression. Patient presented to the emergency room with chief complaint of chest pain shortness of grace ath. For the past 3 weeks she is getting dialyzed only once a week. Last dialysis was last Monday. States she is depressed and therefore does not want to go out for dialysis session s. Last night she had chest pain while at rest described as an elephant sitting on her ches t without radiation to jaw neck arm or interscapular area maximum intensity 10 associated wi th diaphoresis shortness of breath nausea. Denied vomiting fever chills . Has mild smoker' s cough which has not changed. Chest pain is not pleuritic in nature. No prior history of DVT PE. Denies any tearing ripping pain in the chest abdomen and back. No new focal neurol ogical symptoms of motor weakness paresthesias. No fall or trauma to the chest. History of GERD present denies any GI bleed. However she has been constipated and her last bowel move ment was 2 days ago. She reports 5 kg weight gain in the past week. Has orthopnea dyspnea with minimal exertion. Denies any suicidal ideations but reports feeling worthless. She has no plan in place. Mo nths ago she cut her wrist. Agreeable to get telemetry psych consult. Compliant with Lexap ro. Upon arrival to the ED signs afebrile tachycardic 108 tachypneic respiratory rate of 24 hyp ertensive blood pressure 216/130. And hypoxic 84% on room air. On 2 L she is saturating 10 0% at rest. Percocet was given in the emergency room chest pain is now down to 7. Is comfo rtable watching her phone in incomplete sentences. Blood work shows normal white count chronic stable anemia with macrocytosis no thrombocytop enia no neutrophilia or bandemia. CMP showed creatinine 14 GFR of 3 rest of the electrolyte s were normal with potassium of 5.1. BNP greater than 3800. LFTs are normal. And an eleva wilmer at 0.09. Tested negative for COVID19. EKG shows a sinus tachycardia ventricular rate o f 100 normal AL interval normal QRS duration left axis deviation left atrial enlargement QTC mildly prolonged at 461. T wave inversion in 1 and aVL. No acute STEMI. X-ray reported m oderate right pleural effusion with associated multisegmental right basilar atelectasis. To see me consulted Dr. Gupta. Plan is to dialyze in a.m. Medications hydrALAZINE (APRESOLINE) injection 20 mg (20 mg Intravenous Given 10/14/19 004) ondansetron (ZOFRAN) injection 8 mg (8 mg Intravenous Given 10/14/19 0048) promethazine (PHENERGAN) (IV ONLY) injection 12.5 mg (12.5 mg Intravenous Given 10/14/19 021 8) oxyCODONE-acetaminophen (PERCOCET) 5-325 mg per tablet 2 tablet (2 tablets Oral Given 0232) furosemide (LASIX) injection 80 mg (80 mg Intravenous Given 10/14/19 0339) Allergies Allergen Reactions Adhesive & Tape Rash Certain tapes Fentanyl Itching Iodinated Diagnostic Agents Itching Pt c/o face itching during fistulagram Methylphenidate Other (See Comments) Patient says skin was crawling Reglan [Metoclopramide] Itching Lisinopril cough Review of Systems Constitutional: Positive for activity change and unexpected weight change. Negative for jim etite change, chills, diaphoresis, fatigue and fever. Reports a 5 pound weight gain HENT: Negative for congestion, nosebleeds, postnasal drip, rhinorrhea, sinus pressure, sore throat and trouble swallowing. Eyes: Negative for photophobia and visual disturbance. Respiratory: Positive for cough, chest tightness and shortness of breath. Negative for apne a and wheezing. Cardiovascular: Positive for chest pain and leg swelling. Negative for palpitations. Gastrointestinal: Positive for constipation. Negative for abdominal distention, abdominal p ain, blood in stool, diarrhea, nausea and vomiting. History of GERD Endocrine: Negative for polydipsia, polyphagia and polyuria. Genitourinary: Positive for decreased urine volume. Negative for dysuria, flank pain, frequ ency, hematuria and urgency. Makes very little urine and she is hemodialysis dependent Musculoskeletal: Negative for gait problem, neck pain and neck stiffness. Skin: Negative for rash and wound. Allergic/Immunologic: Negative for immunocompromised state. Neurological: Negative for dizziness, seizures, syncope, facial asymmetry, speech difficult y, weakness and headaches. Hematological: Negative for adenopathy. Does not bruise/bleed easily. Psychiatric/Behavioral: Positive for dysphoric mood. Negative for confusion, hallucinations , sleep disturbance and suicidal ideas. The patient is nervous/anxious. Active comorbid conditions include: - cardiomyopathy; dilated - CHF; chronic; combined diastolic & systolic - hypertension - asthma - renal disease; CKD; ESRD - anemia Past Medical History: Diagnosis Date Asthma Bacteremia due to Gram-positive bacteria 12/12/2018 Clotted dialysis access ([facility]) 2014 Congestive heart failure (HCC) ESRD (end stage renal disease) ([facility]) History of peritonitis, dialysis-associated 07/29/2013 Due to MSSA. Had tunneled infection as well. PD catheter removed in July 2013. On Keflex till 08/01/13. HSP (Henoch-Schonlein purpura) nephritis ([facility]) 1987 Hypertension Pericardial effusion without [...] - INSERTION; Surgeon: Rik Simon MD; Location: [facility] MAIN OR ; Service: Vascular; Laterality: N/A; tunneled catheter.br hemodialysis catheter KIDNEY BIOPSY Left 2003 OTHER SURGICAL HISTORY LAPAROSCOPIC PERITONEAL DIALYSIS CATHETER INSERTION - x2 OTHER SURGICAL HISTORY Right 07/2013 LAPAROSCOPIC PERITONEAL DIALYSIS CATHETER INSERTION - current dialysis access MWF dialysis OTHER SURGICAL HISTORY Left 06/24/2014 SUPERFICIALIZATION OF AV FISTULA - Procedure: AV FISTULA - SUPERFICIALIZATION; Surgeon: Emanuel Simon MD; Location: [facility] MAIN OR; Service: Vascular; Laterality: Left; OTHER SURGICAL HISTORY Left 04/08/2014 AV FISTULA PLACEMENT - Procedure: AV FISTULA; Surgeon: Rik Simon MD; Location: [facility] OR; Service: Vascular; Laterality: Left; cephalic OTHER SURGICAL HISTORY Left 03/07/2014 DECLOT GRAFT - Procedure: GRAFT - DECLOT; Surgeon: Rik Simon MD; Location: [facility] MAIN OR ; Service: Vascular; [...] tablet Take 1 tablet by mouth Daily. Patient not taking: Reported on 07/14/2019 01/11/19 Paty Kline DO clonazePAM (KLONOPIN) 0.5 mg tablet Take 0.5 tablets by mouth Daily as needed for Anxiety ( on hemodialysis days). 04/23/19 Arash Bonilla MD clopidogrel (PLAVIX) 75 mg tablet Take 1 tablet by mouth Daily. Patient not taking: Reported on 07/14/2019 10/23/18 Gerber Pearson MD doxercalciferol (HECTOROL) 2 [...] the lungs 2 times daily. Historical Provider, iron sucrose (VENOFER) 20 mg/mL injection Inject 2.5 mLs into the vein Once a week. 09/12/14 Daniela Ibarra MD ondansetron (ZOFRAN ODT) 4 mg disintegrating tablet Take 1 tablet by mouth every 8 hours as needed for Nausea. 07/18/19 Sotero Reinoso MD pantoprazole (PROTONIX) 40 mg tablet Take 40 mg by mouth every morning before breakfast. Historical Provider, promethazine (PHENERGAN) 25 mg tablet Take 1 tablet by mouth every 8 hours as needed. Arash Bonilla MD sevelamer carbonate (RENVELA) 800 mg tablet Take 2 tablets by mouth 3 times daily (with hina ls). 07/18/19 Sotero Reinoso MD valsartan (DIOVAN) 40 mg tablet Take 1 tablet by mouth Daily. 01/22/19 Carolina Mahmood DO valsartan (DIOVAN) 80 mg tablet take 1/2 tablet by mouth once daily 07/31/19 Carolina Mahmood DO Social History Socioeconomic History Marital status: Single Spouse name: Not on file Number of children: 0 Years of education: Not on file Highest education level: Not on file Occupational History Not on file Social Needs Financial resource strain: Not on file Food insecurity Worry: Not on file Inability: Not on file Transportation needs Medical: Not on file Non-medical: Not on file Tobacco Use Smoking status: Former Smoker Packs/day: 0.50 Start date: 01/04/2017 Quit date: 01/04/2018 Years since quittin.7 Smokeless tobacco: Never Used Substance and Sexual Activity Alcohol use: No Drug use: Yes Types: Marijuana Comment: Drug use: Yes Sexual activity: Not Currently Lifestyle Physical activity Days per week: Not on file Minutes per session: Not on file Stress: Not on file Relationships Social connections Talks on phone: Not on file Gets together: Not on file Attends pentecostalism service: Not on file Active member of club or organization: Not on file Attends meetings of clubs or organizations: Not on file Relationship status: Not on file Intimate partner violence Fear of current or ex partner: Not on file Emotionally abused: Not on file Physically abused: Not on file Forced sexual activity: Not on file Other Topics Concern Not on file Social History Narrative She lives in [facility]. She does not work. She has 1 full sibling in good health. She has a total of 14 siblings (3 with same mother, rest with same father). 1 half sibling on father's side had a brain tumor. Lives at home alone in [place] .independent with activities of daily living. no fall. fu ll code , no alcohol. smokes marijuana family history includes Alcohol abuse in her father; Heart disease in her mother; High bloo d pressure in her father; Hypertension in her father; Seizures in her mother. PHYSICAL EXAM VITAL SIGNS BP (!) 179/96 | Pulse 94 | Temp 36.5 C (97.7 F) (Oral) | Resp 22 | Ht 1.702 m (5' 7 ") | Wt 72 kg (158 lb 11.7 oz) | LMP (LMP Unknown) | SpO2 99% | No | BMI 24.86 kg/m Physical Exam Vitals signs (Blood pressure improved after hydralazine) and nursing note reviewed. Constitutional: General: She is not in acute distress. Appearance: She is well-developed and normal weight. She is not ill-appearing, toxic-jim earing or diaphoretic. HENT: Head: Normocephalic and atraumatic. Nose: Nose normal. No congestion or rhinorrhea. Mouth/Throat: Mouth: Mucous membranes are moist. Pharynx: Oropharynx is clear. No oropharyngeal exudate or posterior oropharyngeal erythe ma. Eyes: General: No scleral icterus. Extraocular Movements: Extraocular movements intact. Conjunctiva/sclera: Conjunctivae normal. Pupils: Pupils are equal, round, and reactive to light. Neck: Musculoskeletal: Normal range of motion and neck supple. No neck rigidity. Thyroid: No thyromegaly. Vascular: No JVD. Cardiovascular: Rate and Rhythm: Normal rate and regular rhythm. Pulses: Normal pulses. Heart sounds: Murmur present. No friction rub. No gallop. Pulmonary: Effort: Pulmonary effort is normal. No respiratory distress. Breath sounds: No wheezing or rales. Comments: Left lung is clear Right lung lower two thirds decreased breath sounds. Chest: Chest wall: No tenderness. Abdominal: General: Bowel sounds are normal. There is no distension. Palpations: Abdomen is soft. Tenderness: There is no abdominal tenderness. There is no right CVA tenderness, left CVA tenderness or guarding. Musculoskeletal: Normal range of motion. General: No tenderness or deformity. Right lower leg: Edema present. Left lower leg: Edema present. Comments: 2+ pitting edema of both ankles and feet no signs of DVT Lymphadenopathy: Cervical: No cervical adenopathy. Skin: General: Skin is warm and dry. Coloration: Skin is not jaundiced. Findings: Rash present. No erythema. Comments: Purpuric rash noted in both legs from Henoch-Schnlein purpura(old ) Neurological: General: No focal deficit present. Mental Status: She is alert and oriented to person, place, and time. Mental status is at baseline. Cranial Nerves: No cranial nerve deficit. Sensory: No sensory deficit. Motor: No weakness or abnormal muscle tone. Coordination: Coordination normal. Deep Tendon Reflexes: Reflexes normal. Comments: Gait not tested. Psychiatric: Mood and Affect: Mood normal. Behavior: Behavior normal. Thought Content: Thought content normal. Judgment: Judgment normal. DATA Recent Results (from the past 24 hour(s)) Coronavirus (COVID-19) NAAT Specimen: Nasopharynx; Tissue Result Value Ref Range SARS-CoV-2, NAAT (COVID-19) NEGATIVE NEG CBC with Differential Result Value Ref Range WBC 6.30 3.80 - 11.00 K/uL Red Blood Cells 2.74 (L) 3.70 - 5.10 M/uL Hemoglobin 9.7 (L) 11.3 - 15.5 g/dL Hematocrit 31.1 (L) 34.0 - 46.0 % MCV 113.5 (H) 80.0 - 100.0 fl MCH 35.4 (H) 27.0 - 34.0 pg MCHC 31.2 (L) 32.0 - 35.5 g/dL RDW-SD 59.8 (H) 37 - 53 fl Platelet Count 166 150 - 400 K/uL MPV 11.5 fl Diff Type AUTOMATED % nRBC 0.0 0 /100WBC % Neutrophils 66.30 % IMMATURE GRANULOCYTE 0.30 % % Lymphocytes 13.20 % Monocyte % 5.20 % Eosinophils % 14.00 % Basophils % 1.00 % Neutrophils, Absolute 4.18 1.90 - 7.40 K/uL IMMATURE GRANS AB 0.02 0.00 - 0.07 K/uL Absolute Lymphocytes 0.83 (L) 1.00 - 3.90 K/uL Absolute Monocytes 0.33 0.00 - 0.80 K/uL Eosinophils, Absolute 0.88 (H) 0.00 - 0.50 K/uL Basophils, Absolute 0.06 0.00 - 0.10 K/uL Comprehensive Metabolic Panel Result Value Ref Range Na 139 135 - 145 mmol/L K 5.1 (H) 3.5 - 4.9 mmol/L Cl 98 (L) 99 - 109 mmol/L CO2 26 23 - 32 mmol/L Anion Gap 20 5 - 20 mmol/L Glucose 84 65 - 99 mg/dL BUN 76 (H) 8 - 25 mg/dL Creatinine 14.81 (H) 0.50 - 1.00 mg/dL BUN/Creatinine Ratio 5 Calcium 9.8 8.5 - 10.5 mg/dL Protein, Total 7.3 6.3 - 8.2 g/dL Albumin 4.5 3.6 - 5.0 g/dL Globulin 2.8 1.3 - 4.9 g/dL A/G Ratio 1.6 1.0 - 2.4 BILIRUBIN, TOTAL 0.8 0.1 - 1.5 mg/dL ALK PHOS 114 35 - 115 U/L AST 20 10 - 45 U/L ALT 28 10 - 65 U/L Estimated GFR 3 (L) >60 mL/min/1.73m2 Troponin I Result Value Ref Range Troponin I 0.099 (H) 0.00 - 0.04 ng/mL Magnesium Result Value Ref Range Magnesium 2.7 (H) 1.7 - 2.4 mg/dL Phosphorus Result Value Ref Range Phosphorus 12.0 (HH) 2.3 - 4.8 mg/dL B Type Natriuretic Peptide Result Value Ref Range BNP 3,862.32 (H) 0 - 100 pg/mL Microbiology Results (Last 7) Date with Culture/Sensitivity) Procedure Component Value Units Date/Time Coronavirus (COVID-19) NAAT [[id number]] Collected: 10/14/19 0050 Order Status: Completed Lab Status: Final result Updated: 10/14/19201 Specimen: Tissue from Nasopharynx SARS-CoV-2, NAAT (COVID-19) NEGATIVE Comment: This test was developed and its performance characteristics determined by [employer]. It has not been cleared or approved by the [place] FDA. This test has been authorized by FDA under an Emergency Use Authorization (EUA). Clinicians should be advised to consider a patients signs, symptoms, history, and results of other diagnostic tests when interpreting results. Testing performed at [facility];[address] [place] [address];[place] [address] Evaluation EKG@ 1:01 AM Normal sinus rhythm at a rate of [address] depression in the lateral leads Read by Dr. Jackson. IMAGING Recent Results (from the past 360 hour(s)) XR Chest AP Portable Narrative CHEST PORTABLE ONE VIEW CLINICAL INFORMATION: Shortness of breath. COMPARISON: XR CHEST INSPIRATION AND EXPIRATION (07/16/2019); US GUIDED THORACENTESIS WO CHEST TUBE (07/16/2019); XR CHEST AP PORTABLE (07/15/2019); XR CHEST PA AND LATERAL (01/09/2019); CT CHEST WO CONTRAST (01/07/2019); FINDINGS: Stable mediastinal contours. Moderate right pleural effusion. Multisegmental atelectasis in the right lung base. Left lung clear. No pneumothorax. Stable bones. Impression Moderate right pleural effusion with associated multisegmental right basilar atelectasis. Final Report Signed by: Eliza Garland Richard Sign Date/Time: 10/14/2019 2:13 AM Old records ECHO Complete (Order #[id number]) on 07/18/2019 - Order Result History Report Normal size left ventricle. There is mild diffuse increased left ventricular wall thickness. Mildly reduced left ventricular systolic function. The EF is 45-50% Severely dilated right ventricle. There is interventricular septal flattening with systole and diastole consistent with right ventricular pressure overload. Severe central tricuspid regurgitation. Severely dilated right atrium. There is severe pulmonary hypertension. Estimated right ventricular systolic press ure (RVSP) is 76 mmHg. ASSESSMENT & PLAN Principal Problem: Acute on chronic combined systolic and diastolic CHF (congestive heart failure) Active Problems: ESRD on hemodialysis Recurrent right pleural effusion Chronic right-sided heart failure Moderate to severe pulmonary hypertension Non-compliance Troponin I above reference range Acute on chronic respiratory failure with hypoxia Hypertensive urgency Chest pain at rest Major depressive disorder GERD with esophagitis Acute on chronic combined systolic diastolic heart failure, cor pulmonale, severe pulmonary hypertension, and right heart failure: Presented with volume overload due to missed hemodia lysis/compliance. Also had hypertensive urgency. And ran out of valsartan for the past mon. Compliant with carvedilol. No significant electrolyte abnormalities at this time. Orde red 2 gm sodium, fluid restriction , Daily weight, strict I's and O's. Awaiting hemodialy sis. Acute on chronic hypoxic respiratory failure: Multifactorial secondary to fluid overload, s evere pulmonary hypertension and recurrent right pleural effusion. 80 mg IV lasix ordered u ntil dialysis. Decrease afterload by optimizing blood pressure control. Maintain euvolemia . Recommended patient to be compliant with hemodialysis sessions. Recurrent right pleural effusion: X-ray reported as moderate. After HD , repeat CXR And a s needed consider ordering ultrasound-guided thoracentesis. Elevated troponin: Presented with chest pressure described as an elephant sitting on her ch est. Improved with Percocet. Multifactorial etiology missed dialysis with decreased clear ance ,CHF exacerbation , hypertensive urgency with increased afterload and subendocardial is chemia. Need to rule out ACS ordered telemetry and serial troponins. Continue Plavix, beta -lia. If test is negative may consider statins. Hypertensive urgency : resume carvedilol and valsartan. IV PRN hydralazine labetalol order ed for systolic blood pressures greater than 140 and 180 respectively. GERD with esophagitis continue Protonix Anxiety disorder and major depression: She is low to moderate risk. Suicide precautions or dered. Telemetry psych consulted. Continue Lexapro. Consider CRU evaluation prior to disc harge. DVT prophylaxis with subcu heparin ordered. Full code Mary Mckay MD 10/14/2019 3:33 AM PDT documented in this encounter Consult Notes Billie Gupta MD - 10/15/2019 12:26 PM PDT [facility] Nephrology Note Date of Admission: 10/13/2019 24-year-old female with significant past medical history ofHSP, end-stage renal disease o n hemodialysis occasionally noncompliant (MWF Dr. Anguiano) complicated with vascular acc ess thrombosis status post stentpreviously on Plavix, essential hypertension, chronic comb ined congestive heart failure, severe pulmonary hypertension, cor pulmonale, moderate MR/sev ere TR regurgitation and other comorbidities who presented to ED with chief complaints of sh ortness of breath x two days , with a worsening course since that time. The patient also c omplains of cough. The patient states that she has been missing multiple dialysis appointments. Her last dial ysis was on 10/06 but reports not going since and missing dialysis two weeks prior to that. Review of Systems: the patient reports nausea, dyspnea, chest pain, weakness and depressio n . All other review of systems are negative The following portions of the patient's history were reviewed and updated at the time of is dictation as appropriate: allergies, current medications,and problem list. Allergies Allergen Reactions Adhesive & Tape Rash Certain tapes Fentanyl Itching Iodinated Diagnostic Agents Itching Pt c/o face itching during fistulagram Methylphenidate Other (See Comments) Patient says skin was crawling Reglan [Metoclopramide] Itching Lisinopril cough Physical Exam Blood pressure 137/82, pulse 64, temperature 37 C (98.6 F), temperature source Oral, re sp. rate 14, height 1.702 m (5' 7"), weight 72 kg (158 lb 11.7 oz), SpO2 99 %, not currently . Constitutional: pt appears without distress. HENT: Normocephalic and atraumatic. Cardiovascular: Normal rate. Exam reveals + gallop. no friction rub. Pulmonary/Chest: No stridor. No respiratory distress. Pt has no wheezes, no rales Musculoskeletal: pt exhibits trace edema in lower extremities Neurological: pt is alert and oriented to person, place, and time. There is no asterixis. No facial asymmetry. Psychiatric: pt has a normal mood and affect. behavior is normal. Judgment and thought cont ent normal. Access; pt has left AVF. It has good thrill and bruit Laboratory Findings Lab Results Component Value Date BUN 33 (H) 10/15/2019 CREA 7.20 (H) 10/15/2019 EGFR 7 (L) 10/15/2019 NA 135 10/15/2019 K 4.9 10/15/2019 CL 100 10/15/2019 CO2 28 10/15/2019 CALCIUM 9.2 10/15/2019 PHOS 9.5 (HH) 10/15/2019 MG 2.3 10/15/2019 ALBUMIN 4.5 10/14/2019 WBC 4.53 10/15/2019 HGB 8.9 (L) 10/15/2019 PLT 123 (L) 10/15/2019 FERRITIN 805 (H) 01/24/2019 FESAT 33 01/24/2019 Assessment and Plan: ESRD: will plan M,W,F for UF and clearance reassess volume closely. Access:AVF Functioning well Bone-Mineral Disease management: Calcium is controlled Phos is not controlled . ON sevelamer 4 tabs per meal keep dietary phos intake at 1000 mg/day. adjust binders with meals and snacks. Anemia management: adjust epo on Dialysis to keep target Hb between 10-12. Electrolytes :Pt is at high risk of electrolyte imbalance due to MARU and /or ongoing diu resis. Magnesium and aluminum containing antacids should be avoided. Magnesium or phosphorus containing laxatives should be avoided. BP control: IMPROVED Post UF. On valsartan 320 mg po qd Volume status : Better Controlled but not optimized . Restrict fluid intake to 1 LITER PER 24 HRS. Restrict sodium intake to 2 Grams per 24 hrs Diet encurage liberal protein, 1 gm PO4, 2 gm Na, and 2 gm K restricted diet. Dose all of meds to an estimated GFR of less than 10 cc/ min. Billie Gupta MD FACP,FASN 10/15/2019 omerPan MSW - 10/14/2019 2:37 PM PDT Tele-Psychiatry Social Work Initial Consultation ID: Dara Weldon, jessica 24 y.o. y.o. female : 1995 Site of Service [phone] Date of Service: 10/14/2019 Admit Date : 10/13/2019, Hospital Day: 0 Consent This exam was initially conducted via a secure 256-bit AES encrypted bidirectional video se ssion. You have chosen to receive care through the use of telemedicine. Telemedicine enables [facility] care providers at different locations to provide safe, effective and convenient care throu gh the use of technology. As with any health care service, there are risks associated with t he use of telemedicine, including equipment failure, poor image resolution and information s ecurity issues. Do you understand the risks and benefits of telemedicine as I have explained them to you? y es Have your questions regarding telemedicine been answered? yes Do you consent to the use of telemedicine in your medical care today?yes Reason for Consult: Patient reported suicidal thoughts and depression to ED provider. Risk assessment and recom mendations requested from tele psychiatry. Originating Site [facility] Referral: Patient is referred by Dr Harper History obtained from: Patient and Chart review Communication limitations noted:None Chief Complaint: Patient is a 24-year-old female with history of IgA vasculitis/Henoch Penny purpura, now end-stage renal disease on hemodialysis, hypertension, chronic systolic CHF and severe pulm onary hypertension on home oxygen with history of noncompliance, depression admitted with ch est pain and shortness of breath. Patient expressed suicidal thoughts in ED and has missed s everal dialysis sessions due to worsening anxiety. Past Psychiatric History: Previous Diagnosis: Depression/anxiety Past psychiatric outpatient care: Current OP MH counseling weekly via [facility]. Past psychiatric hospitalizations: None Suicide attempts: None Med trials: Celexa, currently on Lexapro and reports good results though is having increase d anxiety ahead of scheduled dialysis sessions which has led to recent non compliance. Patient's identified baseline: Independent, drives, cares for herself Changes in functioning: Sleep No changes Appetite No changes Psychiatric Legal Status: Status: Voluntary Family Psychiatric History None Substance use: Cannabis Social History: Has friends, close to family, lives alone but is independent. Family demographics and relationships: Close and supportive parents and siblings Current living situation and daily activities: Independent, drives herself to dialysis Access to firearms: no History of trauma? No Legal history: None Patient identified strengths: Intact relationships, fair insight, engaged and compliant with OP MH medication and treatme nt. Social History Socioeconomic History Marital status: Single Spouse name: Not on file Number of children: 0 Years of education: Not on file Highest education level: Not on file Occupational History Not on file Social Needs Financial resource strain: Not on file Food insecurity Worry: Not on file Inability: Not on file Transportation needs Medical: Not on file Non-medical: Not on file Tobacco Use Smoking status: Former Smoker Packs/day: 0.50 Start date: 01/04/2017 Quit date: 01/04/2018 Years since quittin.7 Smokeless tobacco: Never Used Substance and Sexual Activity Alcohol use: No Drug use: Yes Types: Marijuana Comment: Drug use: Yes Sexual activity: Not Currently Lifestyle Physical activity Days per week: Not on file Minutes per session: Not on file Stress: Not on file Relationships Social connections Talks on phone: Not on file Gets together: Not on file Attends pentecostalism service: Not on file Active member of club or organization: Not on file Attends meetings of clubs or organizations: Not on file Relationship status: Not on file Intimate partner violence Fear of current or ex partner: Not on file Emotionally abused: Not on file Physically abused: Not on file Forced sexual activity: Not on file Other Topics Concern Not on file Social History Narrative She lives in [facility]. She does not work. She has 1 full sibling in good health. She has a total of 14 siblings (3 with same mother, rest with same father). 1 half sibling on father's side had a brain tumor. Lives at home alone in [place] .independent with activities of daily living. no fall. fu ll code , no alcohol. smokes marijuana Meds: Medications Prior to Admission Medication Sig Dispense Refill albuterol 90 mcg/puff inhaler Inhale 2 puffs into the lungs every 6 hours as needed for Wheezing. carvedilol (COREG) 12.5 mg tablet Take 1 tablet by mouth 2 times daily. 60 tablet 0 citalopram (CELEXA) 20 mg tablet Take 1 tablet by mouth Daily. (Patient not taking: Rep orted on 07/14/2019) 30 tablet 5 clonazePAM (KLONOPIN) 0.5 mg tablet Take 0.5 tablets by mouth Daily as needed for Anxie ty (on hemodialysis days). (Patient not taking: Reported on 10/14/2019.) 3 tablet 0 clopidogrel (PLAVIX) 75 mg tablet Take 1 tablet by mouth Daily. (Patient not taking: Re ported on 07/14/2019) 30 tablet 4 doxercalciferol (HECTOROL) 2 mcg/mL [...] into the vein Once a week. ondansetron (ZOFRAN ODT) 4 mg disintegrating tablet Take 1 tablet by mouth every 8 hour s as needed for Nausea. (Patient not taking: Reported on 10/14/2019.) 24 tablet 0 pantoprazole (PROTONIX) 40 mg tablet Take 40 mg by mouth every morning before breakfast . promethazine (PHENERGAN) 25 mg tablet Take 1 tablet by mouth every 8 hours as needed. ( Patient not taking: Reported on 10/14/2019.) 30 tablet 0 sevelamer carbonate (RENVELA) 800 mg tablet Take 2 tablets by mouth 3 times daily (with meals). 120 tablet 0 valsartan (DIOVAN) 40 mg tablet Take 1 tablet by mouth Daily. 90 tablet 3 valsartan (DIOVAN) 80 mg tablet take 1/2 tablet by mouth once daily 45 tablet 3 Current Facility-Administered Medications: acetaminophen (TYLENOL) tablet 650 mg, 650 mg, Oral, Q6H PRN, Mary Mckay MD albuterol 90 mcg/puff inhaler 2 puff, 2 puff, Inhalation, Q6H PRN, Mary Mckay MD carvedilol (COREG) tablet 12.5 mg, 12.5 mg, Oral, BID, Mary Mckay MD, 12.5 mg at 10/14/19 0830 clonazePAM (klonoPIN) tablet 0.25 mg, 0.25 mg, Oral, Daily PRN, Mary Mckay MD clopidogrel (PLAVIX) tablet 75 mg, 75 mg, Oral, Daily, Mary Mckay MD, 75 mg at 0853 docusate sodium (COLACE) capsule 100 mg, 100 mg, Oral, BID PRN, Mary Mckay MD [START ON 10/15/2019] heparin (dialysis) 1,000 units/mL infusion, 500 Units/hr, Intrave nous, Dialysis - Continuous, Billie Gupta MD, Last Rate: 0.5 mL/hr at 10/14/19 0946, 5 00 Units/hr at 10/14/19 0946 [START ON 10/15/2019] heparin (dialysis) 1,000 units/mL injection 3,000 Units, 3,000 Un its, Intravenous, With each dialysis, Billie Gupta MD heparin 5,000 units/mL injection 5,000 Units, 5,000 Units, Subcutaneous, Q12H, Lilly Mckay MD hydrALAZINE (APRESOLINE) injection 10 mg, 10 mg, Intravenous, Q4H PRN, Mary Mckay MD, 10 mg at 10/14/19 0850 labetalol (TRANDATE) 5 mg/mL injection 10 mg, 10 mg, Intravenous, Q4H PRN, Mary casas MD melatonin tablet 3 mg, 3 mg, Oral, Nightly PRN, Mary Mckay MD morphine injection 1-2 mg, 1-2 mg, Intravenous, Q4H PRN, Shelley Harper MD, 1 mg at 10/14/19 1359 nitroglycerin (NITROSTAT) SL tablet 0.4 mg, 0.4 mg, Sublingual, Q5 Min PRN, Mary simmons MD ondansetron (ZOFRAN) injection 4 mg, 4 mg, Intravenous, Q6H PRN, Mary Mckay MD, 4 mg at 10/14/19 1401 pantoprazole (PROTONIX) DR tablet 40 mg, 40 mg, Oral, QAM AC, Mary Mckay MD, 40 m g at 10/14/19 0831 polyethylene glycol (MIRALAX) powder 17 g, 17 g, Oral, Daily PRN, Mary Mckay MD promethazine (PHENERGAN) (IV ONLY) injection 12.5 mg, 12.5 mg, Intravenous, Q6H PRN, Camille Harper MD, 12.5 mg at 10/14/19 0944 senna (SENOKOT) tablet 8.6 mg, 8.6 mg, Oral, BID PRN, Mary Mckay MD sevelamer carbonate (RENVELA) tablet 3,200 mg, 3,200 mg, Oral, TID WC, Billie grace MD valsartan (DIOVAN) tablet 320 mg, 320 mg, Oral, Daily, Billie Gupta MD Taking OTC medications: unknown Allergies: Allergies Allergen Reactions Adhesive & Tape Rash Certain tapes Fentanyl Itching Iodinated Diagnostic Agents Itching Pt c/o face itching during fistulagram Methylphenidate Other (See Comments) Patient says skin was crawling Reglan [Metoclopramide] Itching Lisinopril cough Vitals: BP (!) 171/91 | Pulse 84 | Temp 36.9 C (98.4 F) | Resp 20 | Ht 1.702 m (5' 7") | W t 72 kg (158 lb 11.7 oz) | LMP (LMP Unknown) | SpO2 100% | No | BMI 24.86 kg/m Labs: Lab Results Component Value Date WBC 6.30 10/14/2019 RBC 2.74 (L) 10/14/2019 HGB 9.7 (L) 10/14/2019 HCT 31.1 (L) 10/14/2019 MCV 113.5 (H) 10/14/2019 MCH 35.4 (H) 10/14/2019 MCHC 31.2 (L) 10/14/2019 PLT 166 10/14/2019 MPV 11.5 10/14/2019 DIFFTYPE AUTOMATED 10/14/2019 Imaging: @[id number]@ Mental Status Exam: Appearance:age appropriate Behavior:normal and falling asleep at times as just had fnished dialysis but easily roused Speech: appropriate quality, quantity and organization of sentences Mood:normal Affect Congruent Thought process Normal Thought content: Auditory Hallucinations: no Visual Hallucinations: no Paranoid Ideation no Suicidal Ideation: transient SI but denies plan and intent Homicidal Ideation: no Delusions: no Cognition:Oriented to time, place and person Insight: fair regarding her overall MH but mildly impaired regarding impact to her physical health. Judgment mildly impaired Risk Assessment Risk Assessment and Safety Planning needed? Yes Tele-Psychiatry Social Work Risk Assessment [place] Suicide Severity Rating Scale (C-SSRS): Is the patient able to participate in C-SSRS? Yes 1. In the past month, have you wished you were or wished you could go to sleep and not wake up? Yes 2. In the past month, have you actually had any thoughts of killing yourself? No If YES to 2, ask questions 3, 4, 5, and 6. If NO to 2, go directly to question 6. 3. Have you been thinking about how you might kill yourself? N/A 4. Have you had these thoughts and had some intention of acting on them? N/A 5. Have you started to work out or worked out the details of how to kill yourself? Do you i ntend to carry out this plan? N/A 6. Have you EVER done anything, started to do anything, or prepared to do anything to end y our life? No If YES, ask: Was this within the past 3 months?N/A Suicide Inquiry Suicidal Ideation frequency Couple times a month of transient, passive thoughts Plan No Intent No intent History of Suicidal Behavior History of prior suicide attempts? No Number of prior attempts: N/A Most recent attempt: N/A History of aborted suicide attempts? No History of non-suicidal self-injury? Yes Presence of precipitating stressors/activating events: Ongoing medical illness/recent mims e in health status Additional clinically significant scenarios linked to increased risk: Other anxiety and stephanie oing depression symptoms Protective Factors (may not counteract significant acute suicide risk factors): Future orie ntation and Positive support system Safety Planning Is safety planning needed at this time? No Assessment: Dara Weldon is a 24 y.o. y.o. female with a history of IgA vaculitis/Henoch Cyndi hima purpura, now end stage renal disease and on hemodialysis, with chronic systolic CHF, sev ere pulmonary hypertension, on home oxygen and with depression and anxiety. Admitted with h eart failure secondary to volume overload due to non compliance with her hemodialysis. Jaye ent has missed several HD sessions recently. Patient alert, oriented and cooperative for this assessment. Denies current SI,but does ack nowledge she has passive, transient SI at times but no plan or intent. Patient denies HI/swanson llucinations and presents with no psychotic symptoms. Patient organized in thoughts and spe ech and with pleasant and appropriate affect. Patient reports no changes to sleep or eating habits but does state she has had increase in anxiety ahead of scheduled dialysis, depresse d mood then avoids it. She has tried non pharmacological exercises to help overcome but the y have not been helpful (deep breathing, relaxation, mindfulness exercises). Patient reports no history of suicide attempts, reports she did engage in self harming beha vior (cutting) for a short time but stopped several months ago. Patient reports her plan is to get back on transplant list (per chart review she was delist ed due to lack of medical marijuana card). Patient appeared more focused on current social s ituation, friendships, and minimizing risks of her non-compliance than on planning and compl iance. Level of Care Utilization System (LOCUS) Risk of Harm: Low risk of harm as evidenced by no current SI or intention but has transient , passive thoughts several times a month but no intent expressed and no plan. Patient rises to a moderate risk due to impact on her health by missed HD appointments/non compliance. Functional Status: Mild impairment as evidenced by recently missed dialysis appointments . Inability to get to needed medical care Medical, Addictive, and Psychiatric Co-Morbidity: Severe co-morbidity as evidenced by end s tage renal disease required dialysis support and exacerbated anxiety lead to non compliance with dialysis. Level of Stress in Recovery Environment: Low stress environment as evidenced by lives alone , positive, intact relationships with friends and family Level of Support in Recovery Environment: Supportive environment as evidenced by supportive friends, family and engaged with OP weekly MH counseling Treatment and Recovery History: Significant response to treatment and recovery management Engagement and Recovery Status:Optimal engagement and recovery Based on this assessment and use of LOCUS, patient is at low risk of self harm due to trans ient suicidal ideation, however, non compliance with her dialysis due to anxiety elevates he r risk to a moderate level as she incurs physical risk when this occurs. Patient is engaged with OP MH services, however, encouraged her to discuss her worsening anxiety and impact on her health when non compliant with HD with her OP providers as review of current medication s may be needed. DSM V Diagnosis: Depressive disorder unspecified Treatment Plan/Recomendations -Evaluation and recommendations discussed with patient -Discharge to home when medically stable and resume OP MH counseling. Follow up with OP pr oviders regarding increase in anxiety around attending OP HD.. Follow up We are happy to follow up on this patient if needed and follow with you while she is on you r service . Re-consult through the portal if you would like further follow up. Please do not hesitate to call us through the [facility] if you have questions. Time / Billing A total of 25 minutes were spent face to face with the patient via interactive telehealth c ommunication. Greater than 50% of the patient face to face time were spent in counseling &/o r coordination of care regarding risk assessment and recommendations. Dara Monroe Shiraz Electronically Signed by: DORON Davis, [facility] 10/14/2019 5:09 PM PDT CONFIDENTIAL: DO NOT COPY WITHOUT WRITTEN PERMISSION TO RELEASE MENTAL HEALTH RECORDS Billie Bob MD - 10/14/2019 6:51 AM PDTAssociated Order(s): PROVIDER TO PROVIDER CONSULTFormatting o f this note might be different from the original. [facility] Nephrology Consult Note Date of Admission: 10/13/2019 Consulting Physician: Dr Mckay, hospitalist I had the privilege to see your patient Ms. Dara Weldon Re: ESRD management- dial ysis urgency decision HISTORY OF PRESENT ILLNESS History Obtained From patient, chart review 24-year-old female with significant past medical history ofHSP, end-stage renal disease o n hemodialysis occasionally noncompliant (MWF Dr. Anguiano) complicated with vascular acc ess thrombosis status post stentpreviously on Plavix, essential hypertension, chronic comb ined congestive heart failure, severe pulmonary hypertension, cor pulmonale, moderate MR/sev ere TR regurgitation and other comorbidities who presented to ED with chief complaints of sh ortness of breath x two days , with a worsening course since that time. The patient also c omplains of cough. The patient states that she has been missing multiple dialysis appointments. Her last dial ysis was on 10/06 but reports not going since and missing dialysis two weeks prior to that. Review of Systems: In addition to the history provided above, at this time the patient repo rts nausea, dyspnea, chest pain, weakness and depression . All other review of systems are negative The following portions of the patient's history were reviewed and updated at the time of is dictation as appropriate: allergies, current medications, past family history, past medic al history, past social history, past surgical history and problem list. Past Medical History: Diagnosis Date Asthma Bacteremia due to Gram-positive bacteria 12/12/2018 Clotted dialysis access ([facility]) 2014 Congestive heart failure ([facility]) ESRD (end stage renal disease) ([facility]) History of peritonitis, dialysis-associated 07/29/2013 Due to MSSA. Had tunneled infection as well. PD catheter removed in July 2013. On Keflex till 08/01/13. HSP (Henoch-Schonlein purpura) nephritis ([facility]) 1987 Hypertension Pericardial effusion without cardiac tamponade 11/07/2018 Allergies Allergen Reactions Adhesive & Tape Rash Certain tapes Fentanyl Itching Iodinated Diagnostic Agents Itching Pt c/o face itching during fistulagram Methylphenidate Other (See Comments) Patient says skin was crawling Reglan [Metoclopramide] Itching Lisinopril cough Physical Exam Blood pressure (!) 179/96, pulse 94, temperature 36.5 C (97.7 F), temperature source Or al, resp. rate 22, height 1.702 m (5' 7"), weight 72 kg (158 lb 11.7 oz), SpO2 99 %, not cur rently . Constitutional: pt appears without distress. HENT: Normocephalic and atraumatic. Oropharynx is clear and moist. No oropharyngeal exudat e. Eyes: No scleral icterus. Neck: No JVD present. Cardiovascular: Normal rate. Exam reveals + gallop. no friction rub. Pulmonary/Chest: No stridor. No respiratory distress. Pt has no wheezes, no rales. Abdominal: Soft. There is no distension . There is no tenderness and no rebound or guarding . Musculoskeletal: pt exhibits trace edema in lower extremities Lymphadenopathy: there is no cervical adenopathy. Neurological: pt is alert and oriented to person, place, and time. There is no asterixis. No facial asymmetry. Skin: Skin is warm and dry. No rash noted. Psychiatric: pt has a normal mood and affect. behavior is normal. Judgment and thought cont ent normal. Access; pt has left AVF. It has good thrill and bruit Laboratory Findings Lab Results Component Value Date BUN 76 (H) 10/14/2019 CREA 14.81 (H) 10/14/2019 EGFR 3 (L) 10/14/2019 NA 139 10/14/2019 K 5.1 (H) 10/14/2019 CL 98 (L) 10/14/2019 CO2 26 10/14/2019 CALCIUM 9.8 10/14/2019 PHOS 12.0 (HH) 10/14/2019 MG 2.7 (H) 10/14/2019 ALBUMIN 4.5 10/14/2019 WBC 6.30 10/14/2019 HGB 9.7 (L) 10/14/2019 PLT 166 10/14/2019 FERRITIN 805 (H) 01/24/2019 FESAT 33 01/24/2019 Lab Results Component Value Date COLORUA YELLOW 11/07/2018 Component Value Date/Time CREA 14.81 (H) 10/14/2019 0103 CREA 4.96 (H) 07/18/2019 0617 CREA 6.8 (H) 07/17/2019 0459 CREA 7.0 (H) 07/15/2019 0457 CREA 6.20 (H) 04/22/2019 0914 CREA 3.03 (H) 04/20/2019 1514 CREA 1.93 (H) 04/20/2019 0933 CREA 6.2 (H) 04/19/2019 0449 CREA 8.83 (H) 04/18/2019 1332 CREA 4.5 (H) 01/26/2019 0537 CREA 6.9 (H) 01/25/2019 0559 CREA 11.2 (H) 01/24/2019 0553 LABCREA 7.2 (H) 10/19/2018 0620 LABCREA 9.3 (H) 10/18/2018 0544 LABCREA 14.52 (H) 10/17/2018 0349 LABCREA 5.62 (H) 08/22/2018 0702 LABCREA 9.6 (H) 08/21/2018 0502 LABCREA 8.68 (H) 08/20/2018 1743 LABCREA 5.48 (H) 07/24/2018 0604 LABCREA 8.3 (H) 07/23/2018 0532 LABCREA 4.6 (H) 07/21/2018 0600 LABCREA 5.65 (H) 07/20/2018 0625 LABCREA 7.7 (H) 07/19/2018 0610 LABCREA 7.2 (H) 06/01/2018 0443 CXR: Stable mediastinal contours. Moderate right pleural effusion. Multisegmental atelectasis in the right lung base. Left lung clear. No pneumothorax. Stable bones. Assessment and Plan: ESRD: will plan urgent HD today for UF and clearance as she has been hypoxemic with sig ns and sxs of fluid overload . Last Hd was on 10/07/2019 reassess volume closely. Access:AVF Functioning well Bone-Mineral Disease management: Calcium is controlled Phos is not controlled . Start sevelamer 4 tabs per meal keep dietary phos intake at 1000 mg/day. adjust binders with meals and snacks. Anemia management: adjust epo on Dialysis to keep target Hb between 10-12. Hold epo du e to very high bp Electrolytes :Pt is at high risk of electrolyte imbalance due to MARU and /or ongoing diu resis. Magnesium and aluminum containing antacids should be avoided. Magnesium or phosphorus containing laxatives should be avoided. BP control: severely uncontrolled. reassess post UF . Increase valsartan 320 mg po qd Volume status : is not controlled. Restrict fluid intake to 1 LITER PER 24 HRS. Restric t sodium intake to 2 Grams per 24 hrs Diet encurage liberal protein, 1 gm PO4, 2 gm Na, and 2 gm K restricted diet. Dose all of meds to an estimated GFR of less than 10 cc/ min. Thank you for asking me to participate in the care of your patient. I will be happy to cont inue to follow up on Ms. Dara Weldon during hospitalization. Billie Gupta MD FACP,FASN 10/14/2019 documente d in this encounter ED Notes Taylor Verdugo RN - 10/14/2019 3:24 AM PDTMD notified of critical lab resultElectronical ly signed by Taylor Verdugo RN at 10/14/2019 3:26 AM PDTEsme Patterson Technologist - 10/14/2019 2:19 AM PDT 20 2:19 AM PDTEtelvina, Michelle Rivera RN - 10/14/2019 12:37 AM PDTInterventions for low-moderate risk patients 1. Provider informed, suicide precautions initiated, suicide precautions order placed 2. Completed an environmental risk assessment form 3. Removed patient belongings from room 4. Will use paper products for meal trays. 5. Completed C-SSRS suicide screen flowsheet lysia Teran MD - 10/14/2019 12:35 AM PDTFormatting of this note might be different from the o riginal. [facility] Department of Emergency Medicine No flowsheet data found. 12:35 AM PDT History of Present Illness Patient Identification Dara Weldon is a 24 y.o. female. Dara Weldon Patient information was obtained from patient History/Exam limitations: none. Patient presented to the Emergency Department by: Car Chief Complaint Chief Complaint Patient presents with Shortness of Breath missed multiple dialysis tx The patient presents to the emergency department with chief complaints of shortness of chema th. Onset of symptoms was two days ago, with a worsening course since that time. The symptom s are described to be of moderate severity. The patient also complains of cough and suicidal ideation. The patient states that she has been missing multiple dialysis appointments. Pt s tates that she has been feeling depressed. Her last dialysis was on 10/06 but reports not vee g since and missing dialysis two weeks prior to that. Denies any other symptoms at this time . She reports known COVID-19 exposure with her last screening being in the beginning of September . Specialist: Medical Practice Administrator Dr. Anguiano PCP: Jonathan Alonso MD Past Medical History: Diagnosis Date Asthma Bacteremia due to Gram-positive bacteria 12/12/2018 Clotted dialysis access ([facility]) 2014 Congestive heart failure ([facility]) ESRD (end stage renal disease) ([facility]) History of peritonitis, dialysis-associated 07/29/2013 Due to MSSA. Had tunneled infection as well. PD catheter removed in July 2013. On Keflex till 08/01/13. HSP (Henoch-Schonlein purpura) nephritis ([facility]) 1988 Hypertension Pericardial effusion without cardiac tamponade 11/07/2018 Past Surgical History: Procedure Laterality Date ABDOMEN SURGERY AV FISTULA REPAIR 02/24/2014 LEFT Radical Cephalic Fistula Creation; Laterality: Left; Surgeon: Blake Chavarria MD ; Location: [facility] MAIN OR AV FISTULA REPAIR Left 03/07/2014 Procedure: AV FISTULA - GRAFT REPAIR/REVISION; Surgeon: Rik Simon MD; Location: [facility] OR; Service: Vascular; Laterality: Left; biopsy of kidney age 10 DIALYSIS FISTULA CREATION 04/08/2014 Procedure: DIALYSIS CATHETER - INSERTION; Surgeon: Rik Simon MD; Location: [facility] OR ; Service: Vascular; Laterality: N/A; tunneled catheter.br hemodialysis catheter KIDNEY BIOPSY Left 2003 OTHER SURGICAL HISTORY LAPAROSCOPIC PERITONEAL DIALYSIS CATHETER INSERTION - x2 OTHER SURGICAL HISTORY Right 07/2013 LAPAROSCOPIC PERITONEAL DIALYSIS CATHETER INSERTION - current dialysis access MWF dialysis OTHER SURGICAL HISTORY Left 06/24/2014 SUPERFICIALIZATION OF AV FISTULA - Procedure: AV FISTULA - SUPERFICIALIZATION; Surgeon: Emanuel Simon MD; Location: [facility] MAIN OR; Service: Vascular; Laterality: Left; OTHER SURGICAL HISTORY Left 04/08/2014 AV FISTULA PLACEMENT - Procedure: AV FISTULA; Surgeon: Rik Simon MD; Location: [facility] OR; Service: Vascular; Laterality: Left; cephalic OTHER SURGICAL HISTORY Left 03/07/2014 DECLOT GRAFT - Procedure: GRAFT - DECLOT; Surgeon: Rik Simon MD; Location: [facility] OR ; Service: Vascular; Laterality: Left; peritoneal [...] tablet Take 1 tablet by mouth Daily. Patient not taking: Reported on 07/14/2019 01/11/19 Paty Kline DO clonazePAM (KLONOPIN) 0.5 mg tablet Take 0.5 tablets by mouth Daily as needed for Anxiety ( on hemodialysis days). 04/23/19 Arash Bonilla MD clopidogrel (PLAVIX) 75 mg tablet Take 1 tablet by mouth Daily. Patient not taking: Reported on 07/14/2019 10/23/18 Gerber Pearson MD doxercalciferol (HECTOROL) 2 [...] the lungs 2 times daily. Historical Provider, iron sucrose (VENOFER) 20 mg/mL injection Inject 2.5 mLs into the vein Once a week. 09/12/14 Daniela Ibarra MD ondansetron (ZOFRAN ODT) 4 mg disintegrating tablet Take 1 tablet by mouth every 8 hours as needed for Nausea. 07/18/19 Sotero Reinoso MD pantoprazole (PROTONIX) 40 mg tablet Take 40 mg by mouth every morning before breakfast. Historical Provider, promethazine (PHENERGAN) 25 mg tablet Take 1 tablet by mouth every 8 hours as needed. Arash Bonilla MD sevelamer carbonate (RENVELA) 800 mg tablet Take 2 tablets by mouth 3 times daily (with hina ls). 07/18/19 Sotero Reinoso MD valsartan (DIOVAN) 40 mg tablet Take 1 tablet by mouth Daily. 01/22/19 Carolina Mahmood DO valsartan (DIOVAN) 80 mg tablet take 1/2 tablet by mouth once daily 07/31/19 Carolina Mahmood, Allergies Allergen Reactions Adhesive & [...] resource strain: Not on file Food insecurity Worry: Not on file Inability: Not on file Transportation needs Medical: Not on file Non-medical: Not on file Tobacco Use Smoking status: Former Smoker Packs/day: 0.50 Start date: 01/04/2017 Quit date: 01/04/2018 Years since quittin.7 Smokeless tobacco: Never Used Substance and Sexual Activity Alcohol use: No Drug use: Yes Types: Marijuana Comment: Drug use: Yes Sexual activity: Not Currently Lifestyle Physical activity Days per week: Not on file Minutes per session: Not on file Stress: Not on file Relationships Social connections Talks on phone: Not on file Gets together: Not on file Attends pentecostalism service: Not on file Active member of club or organization: Not on file Attends meetings of clubs or organizations: Not on file Relationship status: Not on file Intimate partner violence Fear of current or ex partner: Not on file Emotionally abused: Not on file Physically abused: Not on file Forced sexual activity: Not on file Other Topics Concern Not on file Social History Narrative She lives in [facility]. She does not work. She has 1 full sibling in good health. She has a total of 14 siblings (3 with same mother, rest with same father). 1 half sibling on father's side had a brain tumor. Lives at home alone in [place] .independent with activities of daily living. no fall. fu ll code , no alcohol. smokes marijuana Family History Problem Relation Age of Onset High blood pressure Father Heart disease Mother Seizures Mother Hypertension Father Alcohol abuse Father Review of Systems Constitutional: Negative for: fever, chills or weight loss. HEENT: Negative for: head trauma, ear pain, sore throat or acute visual disturbance. Cardiovascular/Respiratory: Positive for: shortness of breath and cough Negative for: chest pain, syncope Gastrointestinal: Negative for: abdominal pain, nausea, vomiting, diarrhea, or black or bl oody stools. Genitourinary: Negative for: dysuria or urinary problems. Musculoskeletal: Negative for: back pain Skin: Negative for: rash or lesions. Neuro: Positive for: suicidal ideation Negative for: headache, focal muscle weakness, seizure or acute neurological problems. All systems reviewed and otherwise negative Physical Exam Temp: 36.6 C (97.9 F) Pulse: 108 Resp: 24 BP: (!) 216/130 SpO2: (!) 84 % Vitals Interpretation: tachycardic, tachypneic, elevated blood pressure, hypoxic, afebrile. Pulse Oximetry interpretation: Abnormal General: Alert, in no apparent distress Eyes: Normal inspection, pupils equal and round, non-icteric CVS: Rate and rhythm normal No murmurs, rubs or gallops Respiratory: Breath sounds normal bilaterally, no wheezing or crackles Abdomen: Soft, non-tender, non-distended No guarding or rebound Skin: Warm and dry No rash Musculoskeletal: Moves all extremities Neuro: No gross motosensory deficit Medical Decision Making and Emergency Department Course Records Reviewed Old medical records. Nursing notes. ED Department Course 12:35 AM Patient is end-stage renal disease on dialysis, presented with shortness of breath for the past couple of days, patient is well known for being noncompliant with dialysis, last sessi on was 1 week ago. Patient was hypoxic in the mid 80s and hypertensive on arrival. O2 sat improved to the low 90s with supplemental O2. Differential diagnosis: Volume overload, pleu ral effusion, pulmonary edema, CHF, ACS, COVID-19 versus others. Will obtain labs, chest x- ray, EKG and reassess. Patient was hypertensive with BP of 216/130, will give IV hydralazine. 2:00 AM Labs reviewed: BNP 3862.32, RBC 2.74, H&H 9.7 and 31.1, potassium 5.1, BUN 76, creatinine 1 4.81, GFR 3, troponin 0.099, 2:15 AM Chest XR reviewed: moderate right pleural effusion with associated multisegmental right bas ilar atelectasis. 2:33 AM I spoke with Dr. Gupta, Medical Practice Administrator, regarding the patients case. He recommends admissi on for hemodialysis, and he will see the patient in the morning. 2:50 AM Discussed the pt's case including pertinent hx, workup, and treatment with Dr. Mckay, [facility], who accepts the pt for admission. [facility] is transferred to her services. 3:24 AM RN reported phosphorus of 12 Medications albuterol 90 mcg/puff inhaler 2 puff (has no administration in time range) carvedilol (COREG) tablet 12.5 mg (has no administration in time range) clonazePAM (klonoPIN) tablet 0.25 mg (has no administration in time range) clopidogrel (PLAVIX) tablet 75 mg (has no administration in time range) pantoprazole (PROTONIX) DR tablet 40 mg (has no administration in time range) sevelamer carbonate (RENVELA) tablet 1,600 mg (has no administration in time range) valsartan (DIOVAN) tablet 40 mg (has no administration in time range) nitroglycerin (NITROSTAT) SL tablet 0.4 mg (has no administration in time range) heparin 5,000 units/mL injection 5,000 Units (has no administration in time range) acetaminophen (TYLENOL) tablet 650 mg (has no administration in time range) melatonin tablet 3 mg (has no administration in time range) docusate sodium (COLACE) capsule 100 mg (has no administration in time range) senna (SENOKOT) tablet 8.6 mg (has no administration in time range) polyethylene glycol (MIRALAX) powder 17 g (has no administration in time range) ondansetron (ZOFRAN) injection 4 mg (has no administration in time range) hydrALAZINE (APRESOLINE) injection 10 mg (has no administration in time range) labetalol (TRANDATE) 5 mg/mL injection 10 mg (has no administration in time range) hydrALAZINE (APRESOLINE) injection 20 mg (20 mg Intravenous Given 10/14/19 0048) ondansetron (ZOFRAN) injection 8 mg (8 mg Intravenous Given 10/14/19 0048) promethazine (PHENERGAN) (IV ONLY) injection 12.5 mg (12.5 mg Intravenous Given 10/14/19 021 8) oxyCODONE-acetaminophen (PERCOCET) 5-325 mg per tablet 2 tablet (2 tablets Oral Given 231) furosemide (LASIX) injection 80 mg (80 mg Intravenous Given 10/14/19338) Vitals: 10/14/19 01010/14/1922910/14/1933810/14/19 040 BP: (!) 189/103 (!) 180/98 (!) 171/104 Pulse: 101 104 101 100 Resp: 22 24 29 (!) 34 Temp: SpO2: 96% 92% 90% 90% Weight: Laboratory Evaluation Results Procedure Component Value Ref Range Date/Time Phosphorus [[id number]] (Abnormal) Collected: 10/14/19102 Order Status: Completed Updated: 10/14/19322 Phosphorus 12.0 2.3 - 4.8 mg/dL Coronavirus (COVID-19) NAAT [[id number]] Collected: 10/14/1948 Order Status: Completed Specimen: Tissue from Nasopharynx Updated: 10/14/19201 SARS-CoV-2, NAAT (COVID-19) NEGATIVE NEG B Type Natriuretic Peptide [[id number]] (Abnormal) Collected: 10/14/19103 Order Status: Completed Specimen: Blood Updated: 10/14/19 0150 BNP 3,862.32 0 - 100 pg/mL Comprehensive Metabolic Panel [[id number]] (Abnormal) Collected: 10/14/19102 Order Status: Completed Specimen: Blood Updated: 10/14/19 012 Na 139 135 - 145 mmol/L K 5.1 3.5 - 4.9 mmol/L Cl 98 99 - 109 mmol/L CO2 26 23 - 32 mmol/L Anion Gap 20 5 - 20 mmol/L Glucose 84 65 - 99 mg/dL BUN 76 8 - 25 mg/dL Creatinine 14.81 0.50 - 1.00 mg/dL BUN/Creatinine Ratio 5 Calcium 9.8 8.5 - 10.5 mg/dL Protein, Total 7.3 6.3 - 8.2 g/dL Albumin 4.5 3.6 - 5.0 g/dL Globulin 2.8 1.3 - 4.9 g/dL A/G Ratio 1.6 1.0 - 2.4 BILIRUBIN, TOTAL 0.8 0.1 - 1.5 mg/dL ALK PHOS 114 35 - 115 U/L AST 20 10 - 45 U/L ALT 28 10 - 65 U/L Estimated GFR 3 >60 mL/min/1.73m2 Troponin I [[id number]] (Abnormal) Collected: 10/14/19102 Order Status: Completed Specimen: Blood Updated: 10/14/19123 Troponin I 0.099 0.00 - 0.04 ng/mL CBC with Differential [[id number]] (Abnormal) Collected: 10/14/19102 Order Status: Completed Specimen: Blood Updated: 10/14/19110 WBC 6.30 3.80 - 11.00 K/uL Red Blood Cells 2.74 3.70 - 5.10 M/uL Hemoglobin 9.7 11.3 - 15.5 g/dL Hematocrit 31.1 34.0 - 46.0 % MCV 113.5 80.0 - 100.0 fl MCH 35.4 27.0 - 34.0 pg MCHC 31.2 32.0 - 35.5 g/dL RDW-SD 59.8 37 - 53 fl Platelet Count 166 150 - 400 K/uL MPV 11.5 fl Diff Type AUTOMATED % nRBC 0.0 0 /100WBC % Neutrophils 66.30 % IMMATURE GRANULOCYTE 0.30 % % Lymphocytes 13.20 % Monocyte % 5.20 % Eosinophils % 14.00 % Basophils % 1.00 % Neutrophils, Absolute 4.18 1.90 - 7.40 K/uL IMMATURE GRANS AB 0.02 0.00 - 0.07 K/uL Absolute Lymphocytes 0.83 1.00 - 3.90 K/uL Absolute Monocytes 0.33 0.00 - 0.80 K/uL Eosinophils, Absolute 0.88 0.00 - 0.50 K/uL Basophils, Absolute 0.06 0.00 - 0.10 K/uL Available Labs reviewed and interpreted by me. Radiology and EKG Evaluation EKG@ 1:01 AM Normal sinus rhythm at a rate of [address] depression in the lateral leads No peak T waves. Imaging Results XR Chest AP Portable (Final result) Result time 10/14/19 02:13:47 Final result by Lee Garland MD (10/14/19 02:13:47) Impression: Moderate right pleural effusion with associated multisegmental right basilar atelectasis. Final Report Signed by: Eliza Garland Richard Sign Date/Time: 10/14/2019 2:13 AM Narrative: CHEST PORTABLE ONE VIEW CLINICAL INFORMATION: Shortness of breath. COMPARISON: XR CHEST INSPIRATION AND EXPIRATION (07/16/2019); US GUIDED THORACENTESIS WO CHEST TUBE (07/16/2019); XR CHEST AP PORTABLE (07/15/2019); XR CHEST PA AND LATERAL (01/09/2019); CT CHEST WO CONTRAST (01/07/2019); FINDINGS: Stable mediastinal contours. Moderate right pleural effusion. Multisegmental atelectasis in the right lung base. Left lung clear. No pneumothorax. Stable bones. Available radiology studies reviewed and interpreted contemporaneously by me. Diagnosis 1. ESRD needing dialysis (HCC) 2. Pleural effusion 3. SOB (shortness of breath) Disposition: ED Disposition ED Disposition Condition Comment Admit Clinical impression: ESRD needing dialysis (HCC) [[id number]] Clinical impression: Pleural effusion [[id number]] Admitting provider: PHYLLIS HOSPITALIST [[id number]] Expected patient class: Inpatient [101] Level of service: Medical Procedures: Procedures Attending Provider Note: IVivek MD personally performed the services described in this documentation, as scribed by Samuel Butler in my presence, and it is both accurate an d complete. Chart Reviewed and Completed. Scribe: Héctor Daniel, scribing for and in the presence of Vivek Teran MD. Completed by: Héctor Adair 10/14/2019 3:24 AM PDT Vivek Teran MD 10/14/19 0508 documented in this e ncounter Miscellaneous Notes Plan of Care - Douglas Greenberg RN - 10/15/2019 4:32 PM PDT Problem: Suicide Risk Goal: Absence of Self-Harm Outcome: Ongoing, progressing Patient denies any new thoughts of harming self. Patient calm and cooperative. Problem: Hemodynamic Instability (Hemodialysis) Goal: Vital Signs Remain in Desired Range Outcome: Ongoing, progressing Patient's BP in desired range. Patients VS stable. Patient 95-97 on 3 L. Per patient this i s baseline. lan of [facility] - Johanna Rush RN - 10/15/2019 4:27 AM PDTNotified by PRODUCTION TEAM MANAGER that patient has a 9/10 headache . Went in to check on patient, patient fast asleep, took several tries to get pt aroused to voice. Offered pt Tylenol, pt declined. Pt asking if her morphine is "due". Pt educated on f requency of when the morphine is available. BP monitored and treated PRN per MAY. Electronic ally signed by Johanna Palencia RN at 10/15/2019 6:30 AM PDTPlan of [facility] - Joaquim Macias RN - 10/14/2019 10:22 PM PDT Problem: Suicide Risk Goal: Absence of Self-Harm Outcome: Ongoing, progressing Note: Pt denying any suicidal ideation at this time. Will continue to monitor. Problem: Adult Inpatient Plan of Care Goal: Plan of Care Review Outcome: Ongoing, progressing Flowsheets (Taken 10/14/2019 0608) Plan of Care Reviewed With: patient Note: Pt ID and allergy bands on. Aware of how and when to use call light. Call light and b edside table within reach. Bed in low and locked position. Room free of clutter. Problem: Fall Injury Risk Goal: Absence of Fall and Fall-Related Injury Outcome: Ongoing, progressing lan of Care - Hailee Phillips RN - 10/14/2019 12:38 PM PDT Problem: Suicide Risk Goal: Absence of Self-Harm Outcome: Ongoing, progressing Problem: Adult Inpatient Plan of Care Goal: Plan of Care Review Outcome: Ongoing, progressing Problem: Infection (Hemodialysis) Goal: Absence of Infection Signs/Symptoms Outcome: Ongoing, progressing Patient currently undergoing dialysis, tolerating it well. However, continues to report n ausea and a headache. Administered prn medications. Telesitter in room, room checklist com pleted. Patient denies any suicidal thoughts, ideations, or plan at this time. Will contin ue to monitor this shift. Patient denies SOB at this time, on 3L nasal cannula, pt on home oxygen. lan of Care - Meredith, Shelley Gaona MD - 10/14/2019 9:57 AM PDTFormatting of this note might be dif ferent from the original. [facility] Service: Hospitalist Progress Note Hospital Day: LOS: 0 days SUBJECTIVE Patient Summary: 24-year-old female with history of IgA vasculitis/Henoch Penny guillen, now end-stage renal disease on hemodialysis, hypertension, chronic systolic CHF and se jaquan pulmonary hypertension on home oxygen with history of noncompliance, depression admitte d with chest pain and shortness of breath. Patient has depression . Nephrology consulted. Patient admitted with acute on chronic combined systolic and diastolic heart failure second anne to volume overload due to noncompliance. Patient denies any suicidal ideation. She dec lined psychiatry evaluation. Scheduled Medications carvedilol 12.5 mg Oral BID clopidogrel 75 mg Oral Daily [START ON 10/15/2019] heparin (dialysis) 3,000 Units Intravenous With each dialysis heparin 5,000 Units Subcutaneous Q12H pantoprazole 40 mg Oral QAM AC sevelamer carbonate 3,200 mg Oral TID WC valsartan 320 mg Oral Daily Continuous Infusions [START ON 10/15/2019] heparin (dialysis) 500 Units/hr (10/14/19 0946) PRN Medications acetaminophen, albuterol, clonazePAM, docusate sodium, hydrALAZINE, labetalol, melatonin, m orphine, nitroglycerin, ondansetron, polyethylene glycol, promethazine, senna OBJECTIVE Vital Signs: BP (!) 168/93 | Pulse 86 | Temp 34.4 C (93.9 F) (Oral) | Resp 20 | Ht 1.702 m (5' 7 ") | Wt 72 kg (158 lb 11.7 oz) | LMP (LMP Unknown) | SpO2 94% | No | BMI 24.86 kg/m Patient Vitals for the past 24 hrs: BP Temp Temp src Pulse Resp SpO2 Height Weight 10/14/19 0910 (!) 168/93 86 94 % 10/14/19 0901 (!) 164/94 90 20 96 % 10/14/19 0856 (!) 184/104 88 20 98 % 10/14/19 0821 (!) 182/95 92 95 % 10/14/19 0800 20 10/14/19 0759 (!) 184/101 34.4 C (93.9 F) Oral 92 24 10/14/19 0511 1.702 m (5' 7") 72 kg (158 lb 11.7 oz) 10/14/19 0501 (!) 179/96 36.5 C (97.7 F) Oral 94 22 99 % 10/14/19 0400 (!) 171/104 100 (!) 34 90 % 10/14/19 0339 (!) 180/98 101 29 90 % 10/14/19 0230 104 24 92 % 10/14/19 0101 (!) 189/103 101 22 96 % 10/14/19 0048 (!) 197/113 10/14/19 0030 (!) 197/113 95 99 % 10/14/19 0014 (!) 207/104 102 96 % 10/13/19 2245 94 % 10/13/19 2243 (!) 216/130 36.6 C (97.9 F) 108 24 (!) 84 % 10/13/19 2241 72.8 kg (160 lb 7.9 oz) Intake/Output Summary (Last 24 hours) at 10/14/2019 0957 Last data filed at 10/14/2019 0502 Gross per 24 hour Intake 200 ml Output Net 200 ml DATA Recent Labs 10/14/19102 WBC 6.30 HGB 9.7* HCT 31.1* PLT 166 MCV 113.5* Recent Labs Lab 10/14/19102 NA 139 K 5.1* CL 98* CO2 26 ANIONGAP 20 BUN 76* CREA 14.81* CALCIUM 9.8 ALBUMIN 4.5 ALKPHOS 114 ALT 28 AST 20 MG 2.7* PHOS 12.0* Recent Labs 10/14/19102 GLU 84 Recent Labs 10/14/19 01010/14/19102 TROPONIN -- 0.099* BNP 3,862.32* -- No results for input(s): PROTIME, INR, PTT in the last 168 hours. No results for input(s): IRON, TIBC, PCTSAT, FERRITIN, TSH, [id number], FOLATE in the last 168 hours. No results for input(s): LACTATE, PROCALCITONI, CRP, ESR in the last 168 hours. No results for input(s): AMYLASE, LIPASE in the last 168 hours. No results for input(s): TRIG, CHOL, HDL, LDL in the last 168 hours. No results for input(s): AMMONIA in the last 168 hours. No results for input(s): PROCALCITONI in the last 72 hours. Microbiology Results (72 hrs) Procedure Component Value Units Date/Time Coronavirus (COVID-19) NAAT [[id number]] Collected: 10/14/19 0050 Order Status: Completed Lab Status: Final result Updated: 10/14/19 020 Specimen: Tissue from Nasopharynx SARS-CoV-2, NAAT (COVID-19) NEGATIVE Comment: This test was developed and its performance characteristics determined by [employer]. It has not been cleared or approved by the [place] FDA. This test has been authorized by FDA under an Emergency Use Authorization (EUA). Clinicians should be advised to consider a patients signs, symptoms, history, and results of other diagnostic tests when interpreting results. Testing performed at [facility];[address] [place] [address];[place] [address] Results for orders placed or performed during the hospital encounter of 07/14/19 ECG 12 lead Result Value Ref Range INTERPRETATION TEXT Sinus rhythm with Fusion complexes Left axis deviation Abnormal ECG When compared with ECG of 22-APR-2019 08:19, Fusion complexes are now Present T wave inversion no longer evident in Lateral leads This ECG contains Unconfirmed Interpretation Statements. See ED Record for Physician Inter pretation. Confirmed by MUSE READ ONLY, -COMPUTER ([id number]), publications editor Jaymie Thakur ([id number]) on 07/15/2019 3:08 :34 AM Xr Chest Ap Portable Result Date: 10/14/2019 Moderate right pleural effusion with associated multisegmental right basilar atelectasis. F inal Report Signed by: Eliza Garland, Lee Sign Date/Time: 10/14/2019 2:13 AM PROBLEM LIST Principal Problem: Acute on chronic combined systolic and diastolic CHF (congestive heart failure) Active Problems: ESRD on hemodialysis Recurrent right pleural effusion Chronic right-sided heart failure Moderate to severe pulmonary hypertension Non-compliance Troponin I above reference range Acute on chronic respiratory failure with hypoxia Hypertensive urgency Chest pain at rest Major depressive disorder GERD with esophagitis Plan discussed with patient. All questions were answered . All data was reviewed. Disposition: Observation Code Status: Full Code Shelley Harper MD 10/14/2019 9:57 AM PDT This entry has been created using freee Speech Recognition software and [employer]. The entry has been reviewed and there may still exist sound alike word errors. lan of [place] - Tom Walls MSW - 10/14/2019 8:58 AM PDTCare Management Initial Assessment Readmission Risk: HIGH Status Prior to Admission or Illness Arrival From: home or self-care Lives With: alone Living Arrangements: apartment Caregiver For: no one Patient s Caregiver: (no one) Functional Status: Caregiving Concerns: Home Accessibility: stairs [...] Groups: outpatient hemodialysis (specify) Community Agency Name: [facility] Anticipated Changes Related to Illness: none Concerns to be Addressed: mental health concerns Services Anticipated at Discharge: none Equipment Used at Home: oxygen Equipment Needed after Discharge: none Durable Medical Equipment Provider: none Pharmacy/Medication Needs: Transportation Needs: family or friend will provide Initial Plan Anticipated Discharge Disposition: home Expected DC Date: yes Steps Taken Toward Discharge: Initial assessment. Next Steps: Tele-psych eval. Notes: CM met with pt for discharge planning. Pt is 24 years old and lives alone in an apt. Pt has 14 stairs at the main entrance. Pt is independent with ambulation. Pt wears oxygen a t home. Pt receives outpatient dialysis at [facility]. Pt admits to feeling depressed and a Tele -psych consult has been ordered. Pt has no difficulty obtaining her medications and had no r esource concerns at this time. CM will continue to follow as needed. Electronically signed: DORON ALMANZA 10/14/2019 8:58 AM PDT lan of Care - Justina olmedo, Johanna Palencia RN - 10/14/2019 6:09 AM PDT Problem: Suicide Risk Goal: Absence of Self-Harm Outcome: Ongoing, progressing Note: Pt denies feeling depressed or suicidal thoughts at this time. Problem: Adult Inpatient Plan of Care Goal: Plan of Care Review Outcome: Ongoing, progressing Flowsheets (Taken 10/14/2019 0608) Plan of Care Reviewed With: patient Note: Plan of care reviewed with pt. All questions answered. Pt agreeable to plan of care. Problem: Fall Injury Risk Goal: Absence of Fall and Fall-Related Injury Outcome: Ongoing, progressing Note: Pt ID and allergy bands on. Aware of how and when to use call light. Call light and b edside table within reach. Bed in low and locked position. Room free of clutter. documented in th is encounter Plan of Treatment + +------+--------+ + + | Name | Type | Priori | Associated Diagnoses | Date/Time | | | | ty | | | + +------+--------+ + + | ED INFORMATION | SHEILA | Routin | | 10/13/2019 10:41 PM | | EXCHANGE | | e | | PDT | + +------+--------+ + + documented as of this encounter Procedures + +--------+ + + + | Procedure Name | Priori | Date/Time | Associated Diagnosis | Comments | | | ty | | | | + +--------+ + + + | CBC WITH | Routin | 10/15/2019 | | Results for this | | DIFFERENTIAL | e | 3:53 AM | | procedure are in the | | | | PDT | | results section. | + +--------+ + + + | PHOSPHORUS | Add-On | 10/15/2019 | | Results for this | | | | 3:53 AM | | procedure are in the | | | | PDT | | results section. | + +--------+ + + + | MAGNESIUM | Routin | 10/15/2019 | | Results for this | | | e | 3:53 AM | | procedure are in the | | | | PDT | | results section. | + +--------+ + + + | BASIC METABOLIC | Routin | 10/15/2019 | | Results for this | | PANEL | e | 3:53 AM | | procedure are in the | | | | PDT | | results section. | + +--------+ + + + | TROPONIN I | Routin | 10/14/2019 | | Results for this | | | e | 9:18 AM | | procedure are in the | | | | PDT | | results section. | + +--------+ + + + | HEPATITIS B SURFACE | Routin | 10/14/2019 | | Results for this | | AG | e | 9:18 AM | | procedure are in the | | | | PDT | | results section. | + +--------+ + + + | , SERUM, | Add-On | 10/14/2019 | | Results for this | | QUAL | | 9:18 AM | | procedure are in the | | | | PDT | | results section. | + +--------+ + + + | XR CHEST AP PORTABLE | INOCENCIO | 10/14/2019 | | Results for this | | | | 1:19 AM | | procedure are in the | | | | PDT | | results section. | + +--------+ + + + | B TYPE NATRIURETIC | STAT | 10/14/2019 | | Results for this | | PEPTIDE | | 1:04 AM | | procedure are in the | | | | PDT | | results section. | + +--------+ + + + | TROPONIN I | STAT | 10/14/2019 | | Results for this | | | | 1:03 AM | | procedure are in the | | | | PDT | | results section. | + +--------+ + + + | CBC WITH | STAT | 10/14/2019 | | Results for this | | DIFFERENTIAL | | 1:03 AM | | procedure are in the | | | | PDT | | results section. | + +--------+ + + + | PHOSPHORUS | Routin | 10/14/2019 | | Results for this | | | e | 1:03 AM | | procedure are in the | | | | PDT | | results section. | + +--------+ + + + | MAGNESIUM | Add-On | 10/14/2019 | | Results for this | | | | 1:03 AM | | procedure are in the | | | | PDT | | results section. | + +--------+ + + + | COMPREHENSIVE | STAT | 10/14/2019 | | Results for this | | METABOLIC PANEL | | 1:03 AM | | procedure are in the | | | | PDT | | results section. | + +--------+ + + + | ECG 12 LEAD | STAT | 10/14/2019 | | Results for this | | | | 1:01 AM | | procedure are in the | | | | PDT | | results section. | + +--------+ + + + | CORONAVIRUS | STAT | 10/14/2019 | | Results for this | | (COVID-19) NAAT | | 12:50 AM | | procedure are in the | | | | PDT | | results section. | + +--------+ + + + | ED INFORMATION | Routin | 10/13/2019 | | | | EXCHANGE | e | 10:41 PM | | | | | | PDT | | | + +--------+ + + + +---+--------+ | | | | | Proced | | | ure | | | Note - | | | Cedric, | | | Lab In | | | | | | Hlseve | | | n - | | | 08// | | | 2020 | | | 10:42 | | | PM PDT | | [...] | | | FICATI | | | ON?08/ | | | | | | 0 | | | 22:41? | | | BLANDON | | | ON, | | | DARA | | | | | | R?MRN: | | | | | | [id number] | | | [id number] | | | riteri | | | [...] | | | al/Laura | | | [id number] | | | / | | | 12:00 | | | AM | | | [facility] | [facility] | | | [facility] | | | [facility] | | | [facility] | | | in | | | Dialys | | | is | | | Center | | | , | | | patien | | | t has | | | been | | | non | | | compli | | | ant, | | | missin | | | g | | | every | | | appoin | | | tment | | | for | | | Helen | | | (07/01 | | | ,3,10, | | | 15,20/ | | | 2020). | | | ? | | | Macken | | | zie at | | | | | | [facility] | | | ys | | | stated | | | | | | patien | | | t has | | | been | | | keepin | | | g | | | schedu | | | led | | | appoin | | | tments | | | with | | | them.? | | | Left | | | voice | | | mail | | | for | | | return | | | call | | | from | | | patien | | | t to | | | see if | | | there | | | is | | | any | | | way I | | | can | | | assist | | | in | | | follow | | | ing | | | throug | | | h with | | | | | | dialys | | | is.2/1 | | | 0/20 | | | 12:00 | | | AM | | | [facility] | | | [...] | | | St[facility] | | [facility] | | | y | | | [...] | | | visit. | | | Flags | | | | | | [place] | | | ED | | | Dispar | | | ity | | | Measur | | | e - | | | [place] | | | has | | | [...] | | | s. | | | [place] | | | | | | Health [...] | | | By: | | | [place] | | | | | | Health [...] | | | St. | | | [facility] | | | y | | | Hospit | | | al 13 | | | 0 | | | Total | | | 20 0 | | | Note: | | [...] | | out | | | of 20 | | | in the | | [...] | | int | | | Aug 9, | | | 2020 | | | [facility] | | | | | | [facility] | | | al | | | [facility] | | | [place] | | | [place] | | | Emerge | | | ncy | | | Waldemar | | | 19, | | | 2020 | | | [facility] | | | [place] | | | [place] | | | Emerge | | | ncy | | | | | | Radiog [...] | | | sub | | | Other | | | chest | | | pain | | | May | | | [...] | | (Major | | | ) | | | Depend | | | ence | | | on | | | renal | | | dialys | | | is | | | Acute | | | pulmon | | | anne | | | edema | | | | | | Shortn | | | ess of | | | | | | breath | | | | | | End | | | stage | | | renal | | | diseas | | | e May | | | 10, | | | 2020 | | | [facility] | | | [place] | | | [place] | | | Emerge | | | ncy | | | | | | Anxiet | | | y | | | disord | | | er, | | | unspec | | | [...] | | | y | | | Pleura | | | [...] | | | is | | | Hypoxe | | | rhina | | | | | | Radiog [...] | | | sub | | | Fluid | | | | | | overlo | | | ad, | | | unspec | | | ified | | | | | | Chroni | | | c | | | kidney | | | | | | diseas | | | e, | | | unspec | | | ified | | | Feb | | | [...] | | | St. | | | [facility] | | | y H. | | [...] | | | St. | | | [facility] | | | y H. | | [...] | | | St. | | | [facility] | | | y H. | | [...] | | | St. | | | [facility] | | | y H. | | [...] | | | fied | | | Recent | | | [...] | | | [place] | | | [facility] | | | al | | | Medici | | | ne | | | End | | | stage | | | renal | | | diseas | | | e | | | Acute | | | pulmon | | | anne | | | edema | | | | | | Shortn [...] | | | fi | | | Patien | | | t's | | | noncom | | | plianc | | | e with | | | other | | | | | | medica | | | l | | | treatm | | | ent | | | and | | | maria de jesus | | | | | | Pleura [...] | | | a | | | Acute | | | on | | | chroni | | | c | | | combin | | | ed | | | systol | | | ic | | | (conge | | | stive) | | | and | | | diasto | | | lic | | | Feb | | | 13, | | | 2020 | | | [facility] | | | | | | [facility] | | | al | | | [facility] | | | [place] | | | [place] | | | [facility] | | | al | | | [...] | | | [place] | | [place] [facility] | | | al | | | [...] | | | [place] | | | [facility] | | | al | | | [...] | | | is | | | Care | | | [...] | | | MD | | | [facility] | | | al | | | [...] | | | /notif | | | [id number]/[id number] | | | [id number] | | | [id number] | | | [id number] | | | [id number] | | | [id number] | | | f7 | | | PLEASE | | | [...] | +---+--------+ documented in this encounter Results Phosphorus (10/15/2019 3:53 AM PDT) + + + + + + | Component | Value | Ref Range | Performed | Pathologist | | | | | At | Signature | + + + + + + | Phosphorus | 9.5 ()Comment: CALLED | 2.3 - 4.8 mg/dL | [facility] | | | | NURSING UNITREAD BACK | | LABORATORY | | | | RESULTS VERIFIEDCAMRYN Cole | | | | | | IN CDU AT 0440 BY | | | | | | TDTesting performed at | | | | | | [facility];[address];[place] [address] | | | | + + + + + + + + | Specimen | + + | Blood | + + + + + + + | Performing | Address | City/State/Zipcode | Phone Number | | Organization | | | | + + + + + | [facility] | [address] | [place] [address] | [phone] | + + + + + Basic Metabolic Panel (10/15/2019 3:53 AM PDT) + + + + + [...] + + + + | BUN | 33 (H) | 8 - 25 mg/dL | [facility] | | | | | | LABORATORY | | + + + + + + | Creatinine | 7.20 (H) | 0.50 - 1.00 | [facility] [...] 7 (L)Comment: GFR <60: | >60 | [facility] | | | GFR | [...] | | [facility], | | | | | | [place] [address] | | | | + + + + + + + + | Specimen | + + | Blood | + + + + + + + | Performing | Address | City/State/Zipcode | Phone Number | | Organization | | | | + + + + + | [facility] | [address] | [place] [address] | [phone] | + + + + + Magnesium (10/15/2019 3:53 AM PDT) + + + + + + | Component | Value | Ref Range | Performed | Pathologist | | | | | At | Signature | + + + + + + | Magnesium | 2.3Comment: Testing | 1.7 - 2.4 mg/dL | [facility] | | | | performed at [facility];[address] | | LABORATORY | | | | [address];[place] | | | | | | [address] | | | | + + + + + + + + | Specimen | + + | Blood | + + + + + + + | Performing | Address | City/State/Zipcode | Phone Number | | Organization | | | | + + + + + | [facility] | [address] | [place] [address] | [phone] | + + + + + CBC with Differential (10/15/2019 3:53 AM PDT) + + + + + + | Component | Value | Ref Range | Performed | Pathologist | | | | | At | Signature | + + + + + + | WBC | 4.53 | 3.80 - 11.00 | [facility] | | | | | K/uL | LABORATORY | | + + + + + + | Red Blood | 2.52 (L) | 3.70 - 5.10 | [facility] | | | Cells | | M/uL | LABORATORY | | + + + + + + | Hemoglobin | 8.9 (L) | 11.3 - 15.5 | [facility] | | | | | g/dL | LABORATORY | | + + + + + + | Hematocrit | 28.8 (L) | 34.0 - 46.0 % | [facility] | | | | | | LABORATORY | | + + + + + + | MCV | 114.3 (H) | 80.0 - 100.0 fl | [facility] | | | | | | LABORATORY | | + + + + + + | MCH | 35.3 (H) | 27.0 - 34.0 pg | [facility] | | | | | | LABORATORY | | + + + + + + | MCHC | 30.9 (L) | 32.0 - 35.5 | [facility] | | | | | g/dL | LABORATORY | | + + + + + + | RDW-SD | 59.6 (H) | 37 - 53 fl | [facility] | | | | | | LABORATORY | | + + + + + + | Platelet | 123 (L) | 150 - 400 K/uL | [facility] | | | Count | | | LABORATORY | | + + + + + + | MPV | 12.2Comment: NO NORMAL | fl | [facility] | [...] + + + + | % | 61.30 | % | [facility] | | | Neutrophils | | | LABORATORY | | + + + + + + | IMMATURE | 0.20 | % | [facility] | | | GRANULOCYTE | | | LABORATORY | | + + + + + + | % | 13.70 | % | [facility] | | | Lymphocytes | | | LABORATORY | | + + + + + + | Monocyte % | 9.10 | % | [facility] | | | | | | LABORATORY | | + + + + + + | Eosinophils | 14.60 | % | [facility] | | | % | | | LABORATORY | | + + + + + + | Basophils % | 1.10 | % | [facility] | | | | | | LABORATORY | | + + + + + + | Neutrophils | 2.78 | 1.90 - 7.40 | [facility] | | | , Absolute | | K/uL | LABORATORY | | + + + + + + | IMMATURE | 0.01Comment: NOTE NEW | 0.00 - 0.07 | [facility] | | | GRANS AB | REFERENCE RANGE | K/uL | LABORATORY | | + + + + + + | Absolute | 0.62 (L) | 1.00 - 3.90 | [facility] | | | Lymphocytes | | K/uL | LABORATORY | | + + + + + + | Absolute | 0.41 | 0.00 - 0.80 | [facility] | | | Monocytes | | K/uL | LABORATORY | | + + + + + + | Eosinophils | 0.66 (H) | 0.00 - 0.50 | [facility] | | | , Absolute | | K/uL | LABORATORY | | + + + + + + | Basophils, | 0.05Comment: Testing | 0.00 - 0.10 | [facility] | | | Absolute | performed at [facility], [address] | K/u[address] | LABORATORY | | | | [address], | | | | | | [place] [address] | | | | + + + + + + + + | Specimen | + + | Blood | + + + + + + + | Performing | Address | City/State/Zipcode | Phone Number | | Organization | | | | + + + + + | [facility] | [address] | [place] [address] | [phone] | + + + + + Hepatitis B Surface Ag (10/14/2019 9:18 AM PDT) + + + + + + | Component | Value | Ref Range | Performed | Pathologist | | | | | At | Signature | + + + + + + | Hepatitis B | NegativeComment: Testing | Negative | [facility] | | | Surface Ag | performed at [facility], | | LABORATORY | | | | [address], | | | | | | [place] [address] | | | | + + + + + + + + | Specimen | + + | Blood | + + + + + + + | Performing | Address | City/State/Zipcode | Phone Number | | Organization | | | | + + + + + | [facility] | [address] | [place] [address] | [phone] | + + + + + Troponin I (10/14/2019 9:18 AM PDT) + + + + + + | Component | Value | Ref Range | Performed | Pathologist | | | | | At | Signature | + + + + + + | Troponin I | 0.087 (H)Comment: 0.04 | 0.00 - 0.04 | [...] at | | | | | | [facility];[address] | | | | | | Blvd;[place] [address] | | | | + + + + + + + + | Specimen | + + | Blood | + + + + + + + | Performing | Address | City/State/Zipcode | Phone Number | | Organization | | | | + + + + + | [facility] | [address] | [place] [address] | [phone] | + + + + + , Serum, Qual (10/14/2019 9:18 AM PDT) + + + + + + | Component | Value | Ref Range | Performed | Pathologist | | | | | At | Signature | + + + + + + | Preg, Serum | NEGATIVEComment: Testing | NEG | [facility] | | | | performed at [facility];[address] | | LABORATORY | | | | [address];[place] | | | | | | [address] | | | | + + + + + + + + | Specimen | + + | Blood | + + + + + + + | Performing | Address | City/State/Zipcode | Phone Number | | Organization | | | | + + + + + | [facility] | [address] | [place] [address] | [phone] | + + + + + XR Chest AP Portable (10/14/2019 1:19 AM PDT) + + | Specimen | + + | | + + + + + | Impressions | Performed At | + + + | Moderate right pleural effusion with associated multisegmental right | [facility] | | basilar atelectasis. Final Report Signed by: Eliza Garland, | | | Lee Sign Date/Time: 10/14/2019 2:13 AM | | + + + + + + | Narrative | Performed At | + + + | CHEST PORTABLE ONE VIEW CLINICAL INFORMATION: Shortness of | [facility] | | breath. COMPARISON: XR CHEST INSPIRATION AND EXPIRATION | | | (07/16/2019); US GUIDED THORACENTESIS WO CHEST TUBE (07/16/2019); XR | | | CHEST AP PORTABLE (07/15/2019); XR CHEST PA AND LATERAL (01/09/2019); | | | CT CHEST WO CONTRAST (01/07/2019); FINDINGS: Stable mediastinal | | | contours. Moderate right pleural effusion. Multisegmental | | | atelectasis in the right lung base. Left lung clear. No | | | pneumothorax. Stable bones. | | + + + + + | Procedure Note | + + | Cedric, [id number] - 10/14/2019 2:17 AM PDT | | CHEST PORTABLE ONE VIEW | | | | CLINICAL INFORMATION: | | Shortness of breath. | | | | COMPARISON: | | XR CHEST INSPIRATION AND EXPIRATION (07/16/2019); US GUIDED | | THORACENTESIS WO CHEST TUBE (07/16/2019); XR CHEST AP PORTABLE | | (07/15/2019); XR CHEST PA AND LATERAL (01/09/2019); CT CHEST WO CONTRAST | | (01/07/2019); | | | | FINDINGS: | | Stable mediastinal contours. Moderate right pleural effusion. | | Multisegmental atelectasis in the right lung base. Left lung clear. | | No pneumothorax. Stable bones. | | | | IMPRESSION: | | Moderate right pleural effusion with associated multisegmental right | | basilar atelectasis. | | | | | | | | Final Report Signed by: Eliza Garland Richard | | Sign Date/Time: 10/14/2019 2:13 AM | + + + +---------+ + + | Performing | Address | City/State/Zipcode | Phone Number | | Organization | | | | + +---------+ + + | [facility] | | | | + +---------+ + + B Type Natriuretic Peptide (10/14/2019 1:04 AM PDT) + + + + + + | Component | Value | Ref Range | Performed | Pathologist | | | | | At | Signature | + + + + + + | BNP | 3,862.32 (H)Comment: | 0 - 100 pg/mL | [facility] | | | | Testing performed at | | LABORATORY | | | | [facility];[address];[place] [address] | | | | + + + + + + + + | Specimen | + + | Blood | + + + + + + + | Performing | Address | City/State/Zipcode | Phone Number | | Organization | | | | + + + + + | [facility] | [address] | [place] [address] | [phone] | + + + + + Phosphorus (10/14/2019 1:03 AM PDT) + + + + + + | Component | Value | Ref Range | Performed | Pathologist | | | | | At | Signature | + + + + + + | Phosphorus | 12.0 ()Comment: CALLED | 2.3 - 4.8 mg/dL | [facility] | | | | TO TAYLOR Borden RN/ER AT | | LABORATORY | | | | 0323 BY MWREAD BACK | | | | | | RESULTS VERIFIEDTesting | | | | | | performed at [facility] | | | | | | [facility] [facility] | | | | | | [address] | | | | + + + + + + + + | Specimen | + + | | + + + + + + + | Performing | Address | City/State/Zipcode | Phone Number | | Organization | | | | + + + + + | [facility] | [address] | [place] [address] | [phone] | + + + + + Magnesium (10/14/2019 1:03 AM PDT) + + + + + + | Component | Value | Ref Range | Performed | Pathologist | | | | | At | Signature | + + + + + + | Magnesium | 2.7 (H)Comment: Testing | 1.7 - 2.4 mg/dL | [facility] | | | | performed at [facility];[address] | | LABORATORY | | | | [address];[place] | | | | | | [address] | | | | + + + + + + + + | Specimen | + + | Blood | + + + + + + + | Performing | Address | City/State/Zipcode | Phone Number | | Organization | | | | + + + + + | [facility] | [address] | [place] [address] | [phone] | + + + + + Troponin I (10/14/2019 1:03 AM PDT) + + + + + + | Component | Value | Ref Range | Performed | Pathologist | | | | | At | Signature | + + + + + + | Troponin I | 0.099 (H)Comment: 0.04 | 0.00 - 0.04 | [facility] | | | | ng/mL [...] at | | | | | | [facility];[address];[place] [address] | | | | + + + + + + + + | Specimen | + + | Blood | + + + + + + + | Performing | Address | City/State/Zipcode | Phone Number | | Organization | | | | + + + + + | [facility] | [address] | [place] [address] | [phone] | + + + + + Comprehensive Metabolic Panel (10/14/2019 1:03 AM PDT) + + + + + [...] 5.1 (H) | 3.5 - 4.9 | [facility] [...] + + + + | BUN | 76 (H) | 8 - 25 mg/dL | [facility] | | | | | | LABORATORY | | + + + + + + | Creatinine | 14.81 (H) | 0.50 - 1.00 | [facility] | | | | | mg/dL | LABORATORY | | + + + + + + | BUN/Creatin | 5 | | [facility] | | | ine Ratio | | | LABORATORY | | + + + + + + | Calcium | 9.8 | 8.5 - 10.5 | [facility] | | | | | mg/dL | LABORATORY | | + + + + + + | Protein, | 7.3 | 6.3 - 8.2 g/dL | [facility] | | | Total | | | LABORATORY | | + + + + + + | Albumin | 4.5 | 3.6 - 5.0 g/dL | [facility] | | | | | | LABORATORY | | + + + + + + | Globulin | 2.8 | 1.3 - 4.9 g/dL | [facility] [...] + + + | ALK PHOS | 114 | 35 - 115 U/L | [facility] | | | | | | LABORATORY | | + + + + + + | AST | 20 | 10 - 45 U/L | [facility] | | | | | | LABORATORY | | + + + + + + | ALT | 28 | 10 - 65 U/L | [facility] | | | | | | LABORATORY | | + + + + + + | Estimated | 3 (L)Comment: GFR <60: | >60 | [facility] | | | GFR | [...] [facility];[address] | | | | | | [address];[place], [place] | | | | | | [address] | | | | + + + + + + + + | Specimen | + + | Blood | + + + + + + + | Performing | Address | City/State/Zipcode | Phone Number | | Organization | | | | + + + + + | [facility] | [address] | [place] [address] | [phone] | + + + + + CBC with Differential (10/14/2019 1:03 AM PDT) + + + + + + | Component | Value | Ref Range | Performed | Pathologist | | | | | At | Signature | + + + + + + | WBC | 6.30 | 3.80 - 11.00 | [facility] | | | | | K/uL | LABORATORY | | + + + + + + | Red Blood | 2.74 (L) | 3.70 - 5.10 | [facility] | | | Cells | | M/uL | LABORATORY | | + + + + + + | Hemoglobin | 9.7 (L) | 11.3 - 15.5 | [facility] | | | | | g/dL | LABORATORY | | + + + + + + | Hematocrit | 31.1 (L) | 34.0 - 46.0 % | [facility] | | | | | | LABORATORY | | + + + + + + | MCV | 113.5 (H) | 80.0 - 100.0 fl | [facility] | | | | | | LABORATORY | | + + + + + + | MCH | 35.4 (H) | 27.0 - 34.0 pg | [facility] | | | | | | LABORATORY | | + + + + + + | MCHC | 31.2 (L) | 32.0 - 35.5 | [facility] | | | | | g/dL | LABORATORY | | + + + + + + | RDW-SD | 59.8 (H) | 37 - 53 fl | [facility] | | | | | | LABORATORY | | + + + + + + | Platelet | 166 | 150 - 400 K/uL | [facility] [...] + + + + | % | 66.30 | % | [facility] | | | Neutrophils | | | LABORATORY | | + + + + + + | IMMATURE | 0.30 | % | [facility] | | | GRANULOCYTE | | | LABORATORY | | + + + + + + | % | 13.20 | % | [facility] | | | Lymphocytes | | | LABORATORY | | + + + + + + | Monocyte % | 5.20 | % | [facility] | | | | | | LABORATORY | | + + + + + + | Eosinophils | 14.00 | % | [facility] | | | % | | | LABORATORY | | + + + + + + | Basophils % | 1.00 | % | [facility] | | | | | | LABORATORY | | + + + + + + | Neutrophils | 4.18 | 1.90 - 7.40 | [facility] | | | , Absolute | | K/uL | LABORATORY | | + + + + + + | IMMATURE | 0.02Comment: NOTE NEW | 0.00 - 0.07 | [facility] | | | GRANS AB | REFERENCE RANGE | K/uL | LABORATORY | | + + + + + + | Absolute | 0.83 (L) | 1.00 - 3.90 | [facility] | | | Lymphocytes | | K/uL | LABORATORY | | + + + + + + | Absolute | 0.33 | 0.00 - 0.80 | [facility] | | | Monocytes | | K/uL | LABORATORY | | + + + + + + | Eosinophils | 0.88 (H) | 0.00 - 0.50 | [facility] | | | , Absolute | | K/uL | LABORATORY | | + + + + + + | Basophils, | 0.06Comment: Testing | 0.00 - 0.10 | [facility] | | | Absolute | performed at [facility];[address] | [address] | LABORATORY | | | | [address];[place] | | | | | | [address] | | | | + + + + + + + + | Specimen | + + | Blood | + + + + + + + | Performing | Address | City/State/Zipcode | Phone Number | | Organization | | | | + + + + + | [facility] | [address] | [place] [address] | [phone] | + + + + + ECG 12 lead (10/14/2019 1:01 AM PDT) + + + + + + | Component | Value | Ref Range | Performed | Pathologist | | | | | At | Signature | + + + + + + | VENTRICULAR | 100 | BPM | [facility] | | | RATE EKG | | | | | + + + + + + | ATRIAL RATE | 100 | BPM | [facility] | | + + + + + + | P-R | 168 | ms | [facility] | | | INTERVAL | | | | | + + + + + + | QRS | 90 | ms | [facility] | | | DURATION | | | | | + + + + + + | Q-T | 358 | ms | [facility] | | | INTERVAL | | | | | + + + + + + | Q-T | 461 | ms | [facility] | | | INTERVAL | | | | | | (CORRECTED) | | | | | + + + + + + | P WAVE AXIS | 47 | degrees | [facility] | | + + + + + + | QRS AXIS | -46 | degrees | [facility] | | + + + + + + | T AXIS | 99 | degrees | [facility] | | + + + + + + | INTERPRETAT | This ECG contains | | [facility] | | | ION TEXT | Unconfirmed | | | | | | Interpretation | | | | | | Statements. See ED | | | | | | Record for Physician | | | | | | Interpretation. Normal | | | | | | sinus rhythmPossible | | | | | | Left atrial | | | | | | enlargementLeft axis | | | | | | deviationAbnormal QRS-T | | | | | | angle, consider primary | | | | | | T wave | | | | | | abnormalityAbnormal | | | | | | ECGWhen compared with | | | | | | ECG of 14-JUL-2019 | | | | | | 16:52,Fusion complexes | | | | | | are no longer | | | | | | PresentConfirmed by MUSE | | | | | | READ ONLY, -COMPUTER | | | | | | ([phone]), publications editor Luciano, | | | | | | Daniela ([id number]) on | | | | | | 10/14/2019 6:17:39 PM | | | | + + [...] | | | + +---------+ + + Coronavirus (COVID-19) NAAT (10/14/2019 12:50 AM PDT) + + + + + + | Component | Value | Ref Range | Performed | Pathologist | | | | | At | Signature | + + + + + + | SARS-CoV-2, | NEGATIVEComment: This | NEG | [facility] | | | NAAT | test was developed and | | LABORATORY | | | (COVID-19) | its performance | | | | | | characteristics | | | | | | determined by[employer]. It | | | | | | has not been cleared or | | | | | | approved by the [place] FDA. | | | | | | This test has | | | | | | beenauthorized by FDA | | | | | | under an Emergency Use | | | | | | Authorization (EUA). | | | | | | Clinicians shouldbe | | | | | | advised to consider a | | | | | | patients signs, | | | | | | symptoms, history, and | | | | | | results ofother | | | | | | diagnostic tests when | | | | | | interpreting | | | | | | results.Testing | | | | | | performed at [facility] | | | | | | [address];[place], [place] | | | | | | [address] | | | | + + + + + + + + | Specimen | + + | Tissue - Entire | | nasopharynx (body | | structure) | + + + + + + + | Performing | Address | City/State/Zipcode | Phone Number | | Organization | | | | + + + + + | [facility] | [address] | [place] [address] | [phone] | + + + + + documented in this encounter Visit Diagnoses + + | Diagnosis | + + | Acute on chronic combined systolic and diastolic CHF (congestive heart failure) (HCC) | | - Primary | + + | ESRD needing dialysis (HCC) End stage renal disease | + + | Pleural effusion Unspecified pleural effusion | + + | SOB (shortness of breath) Shortness of breath | + + | Acute on chronic congestive heart failure, unspecified heart failure type (HCC) | + + | Acute on chronic respiratory failure with hypoxia (HCC) | + + | Chest pain at rest Chest pain, unspecified | + + | GERD with esophagitis | + + | Hypertensive urgency Unspecified essential hypertension | + + | Moderate episode of recurrent major depressive disorder (HCC) | + + | Moderate to severe pulmonary hypertension (HCC) Other chronic pulmonary heart | | diseases | + + | Noncompliance Personal history of noncompliance with medical treatment, presenting | | hazards to health | + + | Troponin I above reference range Other abnormal blood chemistry | + + | Non-compliance Personal history of noncompliance with medical treatment, presenting | | hazards to health | + + | Chronic right-sided heart failure (HCC) Congestive heart failure, unspecified | + + | Recurrent right pleural effusion Unspecified pleural effusion | + + | ESRD on hemodialysis (HCC) End stage renal disease | + + | Major depressive disorder Major depressive disorder, single episode, unspecified | + + | Fluid overload Other fluid overload | + + | Hyperphosphatemia Disorders of phosphorus metabolism | + + | Secondary hyperparathyroidism (HCC) Secondary hyperparathyroidism (of renal origin) | + + documented in this encounter Administered Medications + +--------+ +---------+------+------+ | Medication Order | MAR | Action | Dose | Rate | Site | | | Action | Date | | | | + +--------+ +---------+------+------+ | carvedilol (COREG) tablet 12.5 | Given | 10/15/19 | 12.5 mg | | | | mg 12.5 mg, Oral, 2 TIMES DAILY, | | 20 7:55 | | | | | First dose on Mon10/14/19 at | | AM PDT | | | | | 0900 | | | | | | + +--------+ +---------+------+------+ +-------+ +---------+---+---+ | Given | 10/14/19 | 12.5 mg | | | | | 20 9:04 | | | | | | PM PDT | | | | +-------+ +---------+---+---+ | Given | 10/14/19 | 12.5 mg | | | | | 20 8:30 | | | | | | AM PDT | | | | +-------+ +---------+---+---+ +---+---+ | | | +---+---+ + +-------+ +-------+---+---+ | clopidogrel (PLAVIX) tablet 75 | Given | 10/15/19 | 75 mg | | | | mg 75 mg, Oral, DAILY, First | | 20 7:53 | | | | | dose on Mon10/14/19 at 0900 | | AM PDT | | | | + +-------+ +-------+---+---+ +-------+ +-------+---+---+ | Given | 10/14/19 | 75 mg | | | | | 20 8:53 | | | | | | AM PDT | | | | +-------+ +-------+---+---+ +---+---+ | | | +---+---+ + +-------+ +--------+---+---+ | docusate sodium (COLACE) | Given | 10/15/19 | 100 mg | | | | capsule 100 mg 100 mg, Oral, 2 | | 20 8:37 | | | | | TIMES DAILY PRN, Constipation, | | AM PDT | | | | | Starting 10/14/19 at 0501, 1st | | | | | | | line agent for constipation | | | | | | | relief., | | | | | | + +-------+ +--------+---+---+ +---+---+ | | | +---+---+ + +-------+ +-------+---+---+ | furosemide (LASIX) injection 80 | Given | 10/14/19 | 80 mg | | | | mg 80 mg, Intravenous, ONCE, | | 20 3:39 | | | | | 10/14/19 at 0335, For 1 dose | | AM PDT | | | | + +-------+ +-------+---+---+ +---+---+ | | | +---+---+ + +---------+ + +-------+---+ | heparin (dialysis) 1,000 | New Bag | 10/14/19 | 500 | 0.5 | | | units/mL infusion 500 Units/hr | | 20 9:46 | Units/hr | mL/hr | | | (0.5 mL/hr), at 0.5 mL/hr, | | AM PDT | | | | | Intravenous, DIALYSIS - | | | | | | | CONTINUOUS, Starting 10/15/19 | | | | | | | at 0000, DIALYSIS USE ONLY - | | | | | | | DISCONTINUE AFTER DIALYSIS IS | | | | | | | COMPLETE, Treatment date(s): | | | | | | | 10/14/2019, Dialysis | | | | | | + +---------+ + +-------+---+ + +---+ | | | + +---+ | heparin (dialysis) 1,000 | | | units/mL injection 3,000 Units | | | 3,000 Units, Intravenous, WITH | | | EACH DIALYSIS, Starting Tue | | | 10/15/19 at 0000, DIALYSIS USE | | | ONLY - DISCONTINUE AFTER DIALYSIS | | | IS COMPLETE, Treatment date(s): | | | 10/14/2019, Dialysis | | + +---+ | | | + +---+ + +-------+ +--------+---+---+ | heparin (dialysis) 1,000 | Given | 10/14/19 | 3,000 | | | | units/mL injection 3,000 Units | | 20 9:46 | Units | | | | 3,000 Units, Intravenous, | | AM PDT | | | | | DIALYSIS - ONCE, 10/14/19 at | | | | | | | 1000, For 1 dose, DIALYSIS USE | | | | | | | ONLY - DISCONTINUE AFTER DIALYSIS | | | | | | | IS COMPLETE, Treatment date(s): | | | | | | | 10/14/2019, Dialysis | | | | | | + +-------+ +--------+---+---+ +---+---+ | | | +---+---+ + +-------+ +-------+---+---+ | hydrALAZINE (APRESOLINE) | Given | 10/14/19 | 10 mg | | | | injection 10 mg 10 mg, | | 20 8:50 | | | | | Intravenous, EVERY 4 HOURS PRN, | | AM PDT | | | | | sbp>180, Starting Mon10/14/19 at | | | | | | | 0501 | | | | | | + +-------+ +-------+---+---+ +---+---+ | | | +---+---+ + +-------+ +-------+---+---+ | hydrALAZINE (APRESOLINE) | Given | 10/14/19 | 20 mg | | | | injection 20 mg 20 mg, | | 20 12:48 | | | | | Intravenous, ONCE, 10/14/19 at | | AM PDT | | | | | 0045, For 1 dose | | | | | | + +-------+ +-------+---+---+ +---+---+ | | | +---+---+ + +-------+ +-------+---+---+ | labetalol (TRANDATE) 5 mg/mL | Given | 10/15/19 | 10 mg | | | | injection 10 mg 10 mg, | | 20 4:17 | | | | | Intravenous, EVERY 4 HOURS PRN, | | AM PDT | | | | | For SBP persistently greater than | | | | | | | 140 at rest., Starting Mon | | | | | | | 10/14/19 at 0501 | | | | | | + +-------+ +-------+---+---+ +---+---+ | | | +---+---+ + +-------+ +------+---+---+ | morphine injection 1-2 mg 1-2 | Given | 10/15/19 | 1 mg | | | | mg, Intravenous, EVERY 4 HOURS | | 20 6:02 | | | | | PRN, Pain, Starting 10/14/19 | | PM PDT | | | | | at 0837 | | | | | | + +-------+ +------+---+---+ +-------+ +------+---+---+ | Given | 10/15/19 | 1 mg | | | | | 20 1:46 | | | | | | PM PDT | | | | +-------+ +------+---+---+ | Given | 10/15/19 | 1 mg | | | | | 20 9:15 | | | | | | AM PDT | | | | +-------+ +------+---+---+ +---+---+ | | | +---+---+ + +-------+ +------+---+---+ | ondansetron (ZOFRAN) injection | Given | 10/15/19 | 4 mg | | | | 4 mg 4 mg, Intravenous, EVERY 6 | | 20 10:39 | | | | | HOURS PRN, Nausea, Vomiting, | | AM PDT | | | | | Starting 10/14/19 at 0501, | | | | | | | First line agent, | | | | | | + +-------+ +------+---+---+ +-------+ +------+---+---+ | Given | 10/15/19 | 4 mg | | | | | 20 2:24 | | | | | | AM PDT | | | | +-------+ +------+---+---+ | Given | 10/14/19 | 4 mg | | | | | 20 2:01 | | | | | | PM PDT | | | | +-------+ +------+---+---+ +---+---+ | | | +---+---+ + +-------+ +------+---+---+ | ondansetron (ZOFRAN) injection | Given | 10/14/19 | 8 mg | | | | 8 mg 8 mg, Intravenous, ONCE, | | 20 12:48 | | | | | 10/14/19 at 0050, For 1 dose | | AM PDT | | | | + +-------+ +------+---+---+ +---+---+ | | | +---+---+ + +-------+ +---------+---+---+ | oxyCODONE-acetaminophen | Given | 10/14/19 | 2 | | | | (PERCOCET) 5-325 mg per tablet 2 | | 20 2:32 | tablets | | | | tablet 2 tablet, Oral, ONCE, Mon | | AM PDT | | | | | 10/14/19 at 0230, For 1 dose | | | | | | + +-------+ +---------+---+---+ +---+---+ | | | +---+---+ + +-------+ +-------+---+---+ | pantoprazole (PROTONIX) DR | Given | 10/14/19 | 40 mg | | | | tablet 40 mg 40 mg, Oral, DAILY | | 20 8:31 | | | | | BEFORE BREAKFAST, First dose on | | AM PDT | | | | | 10/14/19 at 0730, Do not cut | | | | | | | or crush., Indication: GERD | | | | | | + +-------+ +-------+---+---+ +---+---+ | | | +---+---+ + +-------+ +---------+---+---+ | promethazine (PHENERGAN) (IV | Given | 10/14/19 | 12.5 mg | | | | ONLY) injection 12.5 mg 12.5 mg, | | 20 2:18 | | | | | Intravenous, ONCE, 10/14/19 | | AM PDT | | | | | at 0145, For 1 dose, Vesicant. | | | [...] | promethazine (PHENERGAN) (IV | Given | 10/15/19 | 12.5 mg | | | | ONLY) injection 12.5 mg 12.5 mg, | | 20 1:22 | | | | | Intravenous, EVERY 6 HOURS PRN, | | PM PDT | | | | | Nausea, Vomiting, Starting Mon | | | | | | | 10/14/19 at 0929, Vesicant. When | | | | | [...] +-------+ +---------+---+---+ +-------+ +---------+---+---+ | Given | 10/14/19 | 12.5 mg | | | | | 20 9:44 | | | | | | AM PDT | | | | +-------+ +---------+---+---+ +---+---+ | | | +---+---+ + +-------+ + +---+---+ | sevelamer carbonate (RENVELA) | Given | 10/15/19 | 3,200 mg | | | | tablet 3,200 mg 3,200 mg, Oral, | | 20 6:00 | | | | | 3 TIMES DAILY WITH MEALS, First | | PM PDT | | | | | dose (after last modification) on | | | | | | | 10/14/19 at 1200, Do not cut | | | | | | | or crush tablets., Dialysis | | | | | | + +-------+ + +---+---+ +-------+ + +---+---+ | Given | 10/15/19 | 3,200 mg | | | | | 20 1:22 | | | | | | PM PDT | | | | +-------+ + +---+---+ | Given | 10/15/19 | 3,200 mg | | | | | 20 7:53 | | | | | | AM PDT | | | | +-------+ + +---+---+ +---+---+ | | | +---+---+ + +-------+ +--------+---+---+ | valsartan (DIOVAN) tablet 320 | Given | 10/15/19 | 320 mg | | | | mg 320 mg, Oral, DAILY, First | | 20 6:00 | | | | | dose (after last modification) on | | PM PDT | | | | | 10/14/19 at 1800 | | | | | | + +-------+ +--------+---+---+ +-------+ +--------+---+---+ | Given | 10/14/19 | 320 mg | | | | | 20 5:25 | | | | | | PM PDT | | | | +-------+ +--------+---+---+ +---+---+ | | | +---+---+ documented in this encounter Additional Health Concerns + [...]
--- OUTSIDE RECORDS SUMMARY | ~2019-12-21 | XMS | Encounter Summary ---
Demographics + + + | Address | [address] | | | [place] [address] | + + + | Home Phone [...] Team Providers + +------+ + | Care Brickmason Name | Role | Phone | + +------+ + PCP | Unavailable | + +------+ + Encounter Details +--------+ + + + + | Date | Type | Department | Care Team | Description | +--------+ + + + + | 05// | Off-Site | [facility] | Jorje Camp | ESRD (end stage | | 2018 | Visit | NEPHROLOGY [address] | M, DO [address] | renal disease) ([facility]) | | | | [address] | [address] [place] | (Primary Dx) | | | | [place], [place] | [place] [address] | | | | | [address] | [phone] | | | | | [phone] | | | +--------+ + + + [...] of documents of Clinic Attendance here at [facility], with the improvement analyst, Elisabeth Quijano RN. Outpatient Prescriptions Marked as [...] A&O x3, at this point. 3. The [facility] Staff have given her every opportunity to succeed here at the Clinic in [place]. 4. Will recheck her in 2 weeks. : [place] [facility] documented in thi s encounter Plan of Treatment Not on filedocumented as of this encounter Visit Diagnoses + + | Diagnosis | + + | ESRD (end stage renal disease) (HCC) - Primary End stage renal disease | + + documented in this encounter"
--- OUTSIDE RECORDS SUMMARY | ~2019-12-21 | XMS | Encounter Summary ---
Demographics + + + | Address | [address] | | | [place] [address] | + + + | Home Phone [...] Team Providers + +------+ + | Care Canopy Stringer Name | Role | Phone | + +------+ + | Jonathan Alonso MD | PCP | | + +------+ + Reason for Visit + +--------+ + | Reason | Onset | Comments | | | Date | | + +--------+ + | Medication Problem | 11/15/ | CMN O2 | | | 2019 | | + +--------+ + Encounter Details +--------+ + + + + | Date | Type | Department | Care Team | Description | +--------+ + + + + | 11/15/ | Telephone | [facility] | George Torres RN | Medication Problem | | 2019 | | [address] | | (N O2) | | | | [place] | | | | | | [address] | | | | | | [phone] | | | +--------+ + + + [...] Telephone Encounter - George Torres RN - 11/15/2018 3:50 PM PDTReceived signed CMN for O 2 from provider. [facility] at 11/15/2018 3:50 PM PDTdocumented in this encounter Plan of Treatment Not on filedocumented as of this encounter Visit Diagnoses Not on filedocumented in this encounter"
--- OUTSIDE RECORDS SUMMARY | ~2019-12-21 | XMS | Encounter Summary ---
Demographics + + + | Address | [address] | | | [place] [address] | + + + | Home Phone [...] | | | | | [place] [address] | | + + + + + | Thania Mallory | ECON | [address] | | | | | [place] [address] | | + + + + + | Deidra Weldon | ECON | [address] | | | | | [place] | | | | | [address] | | + + + + + Care Team Providers + +------+ + | Care Information Systems Consultant Name | Role | Phone | [...] | | | [address] | [place] | | | | | [place], | [place], [place] | | | | | [place] [address] | [address] | | | | | [phone] | [phone] | | | | | | | [...] Denise | | | | | | [place] | | | | | | [address] | | | | | | [phone] | | | | | | | | +--------+ + + + + documented as of this encounter Visit Diagnoses Not on filedocumented in this encounter"
--- OUTSIDE RECORDS SUMMARY | ~2019-12-21 | XMS | Encounter Summary ---
Demographics + + + | Address | [address] | | | [place] [address] | + + + | Home Phone [...] Team Providers + +------+ + | Care Detail Assembler Name | Role | Phone | [...] + + | 07/12/ | Refill | [facility] | Carolina Mahmood DO | Medication Refill | | 2019 | | CARDIOLOGY [place]ER[place]D | [address] | | | | | [address] | [place], [place] | | | | | [place], [place] | [address] | | | | | [address] | | | | | | [phone] | | | +--------+--------+ + + + [...]
--- OUTSIDE RECORDS SUMMARY | ~2019-12-21 | XMS | Encounter Summary ---
Demographics + + + | Address | [address] | | | [place] [address] | + + + | Home Phone [...] Providers + +------+ + | Care Consumer Lender Name | Role | Phone | + +------+ + | Jonathan Alonos MD | PCP | | + +------+ + Reason for Visit +--------+--------+ + | Reason | Onset | Comments | | | Date | | +--------+--------+ + | DME | 11/13/ | OXYGEN | | | 2019 | | +--------+--------+ + Encounter Details +--------+ + + + + | Date | Type | Department | Care Team | Description | +--------+ + + + + | 11/13/ | Telephone | [facility] | Silvia Rabago | DME (OXYGEN) | | 2019 | | [address] | [place] | | | | | [place] | | | | | | [address] | | | | | | [phone] | | | +--------+ + + + [...] this encounter Miscellaneous Notes Telephone Encounter - Silvia Rabago RN - 11/13/2018 10:00 AM PDTM wanted to check on rx for oxygen, Let them know that it was delivered to the providers box and would hopeful ly be signed and returned today. documented in this encounter Plan of Treatment Not on filedocumented as of this encounter Visit Diagnoses Not on filedocumented in this encounter"
--- OUTSIDE RECORDS SUMMARY | ~2019-12-21 | XMS | Encounter Summary ---
Demographics + + + | Address | [address] | | | [place] [address] | + + + | Home Phone [...] | | | | | [place] [address] | | + + + + + | Thania Mallory | ECON | [address] | | | | | [place] [address] | | + + + + + | Deidra Weldon | ECON | [address] | | | | | [place] | | | | | [address] | | + + + + + Care Team Providers + +------+ + | Care Retanner Name | Role | Phone | + [...] | | | | | [place], | [place], [place] | | | | | [place] [address] | [address] | | | | | [phone] | | | +--------+ + + + [...] second ABO. Faxed message to RN in [place] requesting that type and screen be added [...] Denise | | | | | | [place], [place] | | | | | | [address] | | | | | | [phone] | | | | | | | | +--------+ + + + + documented as of this encounter Visit Diagnoses Not on filedocumented in this encounter"
--- OUTSIDE RECORDS SUMMARY | ~2019-12-21 | XMS | Encounter Summary ---
Demographics + + + | Address | [address] | | | [place] [address] | + + + | Home Phone [...] | Author | [facility] | | | and [place] | + + + | Organization | [facility] | | [...] Team Providers + +------+ + | Care Oncology Transplant Network Manager Name | Role | Phone | [...] [address] | | | | | [place], [place] | [place] [address] | | | | | [address] | [phone] | | | | | [phone] | | | +--------+ + + + [...]
--- OUTSIDE RECORDS SUMMARY | ~2019-12-21 | XMS | Encounter Summary ---
Demographics + + + | Address | [address] | | | [place] [address] | + + + | Home Phone [...] | | | | | [place] [address] | | + + + + + | Thania Mallory | ECON | [address] | | | | | [place] [address] | | + + + + + | Deidra Weldon | ECON | [address] | | | | | [place] | | | | | [address] | | + + + + + Care Team Providers + +------+ + | Care Welding Supervisor Name | Role | Phone | [...] | | | [place], | [place] [address] | | | | | [place] [address] | [phone] | | | | | | | [...] Denise | | | | | | [place] | | | | | | [address] | | | | | | [phone] | | | | | | | | +--------+ + + + + documented as of this encounter Visit Diagnoses Not on filedocumented in this encounter"
--- OUTSIDE RECORDS SUMMARY | ~2019-12-21 | XMS | Encounter Summary ---
Demographics + + + | Address | [address] | | | [place] [address] | + + + | Home Phone [...] Providers + +------+ + | Care Product Support Manager Name | Role | Phone [...] [address] | | | | | [place], [place] | [place] [address] | | | | | [address] | [phone] | | | | | [phone] | | | +--------+--------+ + + + [...]
--- OUTSIDE RECORDS SUMMARY | ~2019-12-21 | XMS | Encounter Summary ---
Demographics + + + | Address | [address] | | | [place] [address] | + + + | Home Phone [...] | | | | | [place] [address] | | + + + + + | Thania Mallory | ECON | [address] | | | | | [place] [address] | | + + + + + | Deidra Weldon | ECON | [address] | | | | | [place] | | | | | [address] | | + + + + + [...] | | | | [address] | [facility] | | | | | [place], | [place], [place] | | | | | [place] [address] | [address] | | | | | [phone] | | | +--------+ + + + [...] Denise | | | | | | [place], [place] | | | | | | [address] | | | | | | [phone] | | | | | | | | +--------+ + + + + documented as of this encounter Visit Diagnoses Not on filedocumented in this encounter"
--- OUTSIDE RECORDS SUMMARY | ~2019-12-21 | XMS | Encounter Summary ---
Demographics + + + | Address | [address] | | | [place] [address] | + + + | Home Phone [...] | | | | | [place] [address] | | + + + + + | Thania Mallory | ECON | [address] | | | | | [place] [address] | | + + + + + | Deidra Weldon | ECON | [address] | | | | | [place] | | | | | [address] | | + + + + + Care Team Providers + +------+ + | Care Oven Builder Name | Role | Phone | [...] | MEDICARE [address]28 | | | | [place] | | (Primary Dx) | | | | [address] | | | | | | [place] | | | | | | [place] | | | | | | [address] [facility], | | | | | | [place] [address] | | | | | | [phone] | | | +--------+------+ + + + [...] Denise | | | | | | [place], [place] | | | | | | [address] | | | | | | [phone] | | | | | | | [...] [facility] - | [address] | [place] [address] | | | IMMUNOGENETICS/TRANS | [address] [...] [facility] - | [address] | [place] [address] | | | IMMUNOGENETICS/TRANS | [address] [...] [facility] - | [address] | [place] [address] | | | IMMUNOGENETICS/TRANS | [address] [...] [facility] - | [address] | [place], [place] | | | IMMUNOGENETICS/TRANS | [address] [...] [facility] - | [address] | [place], [place] | | | IMMUNOGENETICS/TRANS | [address] [...] + + | [facility] - | [address] | [place] [address] | | | IMMUNOGENETICS/TRANS | [address] [...] | [facility] - | [address] | [place] [address] | | | IMMUNOGENETICS/TRANS | [address] [...] [facility] - | [address] | [place] [address] | | | IMMUNOGENETICS/TRANS | [address] [...] [facility] - | [address] | [place] [address] | | | IMMUNOGENETICS/TRANS | [address] [...] | + + + + + | [facility] | [address] | [place] [address] | | | SERVICES, | [address] [...] [facility] | [address] | [place] [address] | | | SERVICES, | [address] [...] | + + + + + | [facility] | [address] | [place] [address] | | | SERVICES, CORE | LONG [...] [facility] | | | , SERUM | [email or web address],[address] | | REG UNIV | | | | [place], [facility],[place] | | PTH - INTFC | | | | [address] | | | | | | [phone]. | | | | | | Faisal [...] [facility] | [address] | [place], [place] | | | UNIV PTH - INTFC | | [address] | | + + + + + [...] | + + + + + | [facility] | [address] | [place] [address] | | | SERVICES, CORE | LONG [...] | + + + + + | [facility] | [address] | [place] [address] | | | SERVICES, CORE | LONG [...] + | [facility] | [address] | [place] [address] | | | [place] | | | | + + + [...] [facility] | [address] | [place] [address] | | | SERVICES, CORE | PARK [...] LABORATORY | [address] | [place] [address] | | | SERVICES, CORE | PARK [...] | + + + + + | [facility] | [address] | [place] [address] | | | HOMERO LAN | LONG [...] - | | | | | | [place] | | + + + + + + + + | Specimen | + + | Blood - Blood | + + + + + + + | Performing | Address | City/State/Zipcode | Phone Number | | Organization | | | | + + + + + | [facility] | [address] | [place] [address] | | | [place] | | | [...] at: | | | | | | http://www.cdc.gov/nchstp/tb/pubs/tbfactssheets/196833.htm | | | Test performed by: [facility] [address] [place] [address] | | + + + + + [...] [facility] | [address] | [place] [address] | | | SERVICES, SPECIAL | LONG [...] INTERPRETATION: Prothrombin mutation analysis shows that | [facility] | | there is no mutation in either copy of the prothrombin gene at | DIAGNOSTIC | | nucleotide 95160. Please note that this assay only detects the | LABORATORIES | | [id number] point mutation and therefore a normal result [...] has been analyzed for the presence of [id number] | | | mutation in the prothrombin [...] | | Heterozygotes for the common prothrombin [id number] mutation constitute | | | approximately 2% of the normal white population (1,2). | | | References: 1.) Poort et al. Blood 88, 6244-7433 (1996). 2.) Ricardo | | | et al. Circulation 99, 999-1004 (1998). 3.) Al Montalvo, and | | | Press. Amer J Clin Path 155, 439-47 (2001). This test was | | | developed and its performance characteristics determined by the [facility] | | | [facility]. It has | | | not been cleared or approved by the Food and Drug Administration. | | | FDA approval is not required for clinical use of this test, and | | | therefore validation was done as required under the requirements of | | | the Clinical Laboratory Improvement Act of 1988. The [facility] | | | Diagnostic [facility] is a fully | | | licensed and/or accredited clinical laboratory under CLIA, CAP, and | | | the [facility]. Please note that our lab now [...] + + + + | [facility] | [address] | [place] [address] | | | DIAGNOSTIC | [address] [...] | + + + + + | [facility] | [address] | [place] [address] | | | SERVICES, CORE | PARK [...] | + + + + + | [facility] | [address] | [place] [address] | | | SERVICES, CORE | LONG [...] | + + + + + | [facility] | [address] | [place] [address] | | | SERVICES, HOMERO | PARK [...] | + + + + + | [facility] | [address] | [place] [address] | | | SERVICES, HOMERO | LONG [...] | | | | | | [place] [address] | | | | | | [phone]. | | | | | | Faisal [...] [facility] | [address] | [place], [place] | | | UNIV PTH - INTFC | | [address] | | + + + + + [...] | + + + + + | [facility] | [address] | [place] [address] | | | SERVICES, SPECIAL | PARK [...] C PCR, | Undetected | IU/mL | [facility] | | | QUANT | | [...] + + + + | [facility] | [address] | [place] [address] | | | DIAGNOSTIC | [address] [...] + | [facility] | [address] | [place] [address] | | | [place] | | | [...] + | [facility] | [address] | [place] [address] | | | [place] | | | [...] + | [facility] | [address] | [place] [address] | | | [place] | | | [...] + | [facility] - | [address] | [place] [address] | | | [place] | | | | + + + [...] less......Not | | | | | | Qbdgrebx87.0-21.9 | | | | | | U/mL.........Indetermina [...] available | | | | | | atwww.[email or web address]/eb | | | | | | vdx.Performed by [facility] | | | | | | [facility],[address] | | | | | | [place], [place] [address] | | | | | | [phone]. | | | | | | Faisal [...] [facility] | [address] | [place], [place] | | | UNIV PTH - INTFC | | [address] | | + + + + + [...] + | [facility] | [address] | [place] [address] | | | [place] | | | | + + + [...] | + + + + + | [facility] | [address] | [place] [address] | | | SERVICES, HOMERO | LONG [...] by | | | | | | [email or web address],[address] | | | | | | [place], [facility],[place] | | | | | | [address] | | | | | | [phone]. 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
--- OUTSIDE RECORDS SUMMARY | ~2019-12-21 | XMS | Encounter Summary ---
Demographics + + + | Address | [address] | | | [place] [address] | + + + | Home Phone [...] | | | | | [place] [address] | | + + + + + | Thania Mallory | ECON | [address] | | | | | [place] [address] | | + + + + + | Deidra Weldon | ECON | [address] | | | | | [place] | | | | | [address] | | + + + + + Care Team Providers + +------+ + | Care Exhibits Manager Name | Role | Phone | [...] | | | | | [address] [place], | [place], [place] | | | | | [place] [address] | [address] | | | | | [phone] | | | +--------+ + + + [...] | | | | | | [place], [place] | | | | | | [address] | | | | | | [phone] | | | | | | | | +--------+ + + + + documented as of this encounter Visit Diagnoses Not on filedocumented in this encounter"
--- OUTSIDE RECORDS SUMMARY | ~2019-12-21 | XMS | Encounter Summary ---
Demographics + + + | Address | [address] | | | [place] [address] | + + + | Home Phone [...] | Author | [facility] | | | and [place] | + + + | Organization | [facility] | | | [...] Team Providers + +------+ + | Care Msws Name | Role | Phone | + +------+ + PCP | Unavailable | + +------+ + Encounter Details +--------+ + + + + | Date | Type | Department | Care Team | Description | +--------+ + + + + | 07/10/ | Hospital | [facility] | | | | 2008 - | Encounter | [facility] | | | | | | [address] | | | | 08/03/ | | [place] [address] | | | | 2008 | | [phone] | | | +--------+ + + + [...]
--- OUTSIDE RECORDS SUMMARY | ~2019-12-21 | XMS | Encounter Summary ---
Demographics + + + | Address | [address] | | | [place] [address] | + + + | Home Phone [...] | | | | | [place] [address] | | + + + + + | Thania Mallory | ECON | [address] | | | | | [place] [address] | | + + + + + | Deidra Weldon | ECON | [address] | | | | | [place] | | | | | [address] | | + + + + + Care Team Providers + +------+ + | Care Design Intern Name | Role | Phone | [...] | | | | | [phone] [facility] | [facility] | | | | | [facility], | [place], [place] | | | | | [place] [address] | [address] | | | | | [phone] | | | +--------+ + + + [...] | | | | | | [place] | | | | | | [address] | | | | | | [phone] | | | | | | | | +--------+ + + + + documented as of this encounter Visit Diagnoses Not on filedocumented in this encounter"
--- OUTSIDE RECORDS SUMMARY | ~2019-12-21 | XMS | Encounter Summary ---
Demographics + + + | Address | [address] | | | [place] [address] | + + + | Home Phone [...] | Author | [facility] | | | and [place] | + + + | Organization | [facility] | | [...] Team Providers + +------+ + | Care Care Advocate Name | Role | Phone | + +------+ + | Tien Nicholson MD | PCP | | + +------+ + Encounter Details +--------+ + + + + | Date | Type | Department | Care Team | Description | +--------+ + + + + | 05/26/ | Hospital | [facility] | Mayco Rizvi MD | Chest pain, | | 2019 - | Encounter | [facility] | [address] [place] | unspecified type; | | | | CARE FLOOR [address] | [address] [place], [place] | Hypoalbuminemia; | | 06/01/ | | [address] | [address] | Anemia in ESRD | | 2019 | | [place], [place] | | (end-stage renal | | | | [address] | | disease) ([facility]); | | | | [phone] | | End-stage renal | | | | | | disease on | | | | | | hemodialysis ([facility]); | | | | | | Pleural [...] | | | | failure) ([facility]) | +--------+ + + + + Social [...] 06/01/2018 9:59 AM PDT Discharge Summaries by Darell Rossi MD at 06/01/18958 Author: Darell Rossi MD Service: Hospitalist Author Type: Physician Filed: 06/15/18 1207 Date of Service: 06/01/18958 Status: Addendum Embossing Press Operator Molded Goods: Darell Rossi MD (Physician) Related Notes: Original Note by Darell Rossi MD (Physician) filed at 06/04/18 3288 [facility] Service: Hospitalist Physician Discharge Summary [...] 17. The mitral valve is normal. 18. Fzcr-sv-jzpfe ate eccentric mitral regurgitation is present. 19. [...] pleural effusion who was transfer red to [facility] underwent right-sided diagnostic and therapeutic thoracocentesis [...] hyperkalemia with that. I discussed with the import/export freight forwarder as well regarding not being on [place]. [...] Component Value Units Date/Time Culture, Body Fluid [[id number]] Collected: 05/26/18 1412 Specimen: Body Fluid from Pleural Fluid Updated: 05/30/18 0733 Specimen Description PLEURAL FLUID GRAM STAIN WBC'S SEEN GRAM STAIN NO ORGANISMS SEEN GRAM STAIN STAIN PERFORMED ON CYTOSPIN CULTURE NO GROWTH 4 DAYS Culture, Body Fluid [[id number]] Collected: 05/26/18 1513 Specimen: Other from Ascites Fluid Updated: 05/30/18 0732 Specimen Description ASCITES FLUID GRAM STAIN STAIN PERFORMED ON CYTOSPIN GRAM STAIN WBC'S SEEN GRAM STAIN NO EPITHELIAL CELLS SEEN GRAM STAIN NO ORGANISMS SEEN CULTURE NO GROWTH 4 DAYS Gram stain [[id number]] Collected: 05/29/18 1256 Specimen: Sputum from Thoracic Fluid Updated: 05/29/18 2709 Specimen Description THORACIC FLUID CULTURE 1+ WBC'S SEEN NO ORGANISMS SEEN Lactate dehydrogenase, body fluid [[id number]] Collected: 05/29/18 1256 Specimen: Body Fluid from Pleural, Right Updated: 05/29/18 1619 FLUID LDH 151 U/L Cholesterol, body fluid [[id number]] Collected: 05/29/18 1256 Specimen: Body Fluid from [...] if needed. Follow-Up: Tien Nicholson MD [address] [place] [address] In 1 week Carolina Mahmood DO [address] [place] [id number] In 1 week Daniela Ibarra MD [address] [place] [id number] In 1 week Discharge took more than 35 minutes, to include final examination, discussion of admission, and preparation of prescriptions, instructions for ongoing care, follow up and dictation of summary. Signed: DARELL ROSSI MD 06/01/2018 9:59 AM Dictation software, [employer], used which may contain error for similar [...] | | | renal disease) ([facility]) | protocol | | | | | [...] 06/01/181505 Date of Service: 06/01/181505 Status: Signed Embossing Press Operator Molded Goods: Tino Paiz CRT (Certified Respiratory Therapist) [facility] Department of Respiratory Senior [facility] Oxygen Evaluation (Evaluation is valid for 48 [...] Date of Service: 06/01/18 1500 Status: Signed Embossing Press Operator Molded Goods: Autumn Moy RN (Registered Nurse) Pt was [...] Management by Leanna Ariza RN at 06/01/18 4698 Author: Leanna Ariza RN Service: (none) Author Type: Registered Nurse Filed: 06/01/18 1250 Date of Service: 06/01/18 1248 Status: Signed Embossing Press Operator Molded Goods: Leanna Ariza RN (Registered Nurse) Pt will d/c home today --already established on [facility] MWF --will have O2 eval today No other needs Angela Antonio Carrasco MD - 06/01/2018 10:52 AM PDTFormatting of this note might be different from the orig inal. Progress Notes by Antonio Benjamin MD at 06/01/18 1052 Author: Antonio Benjamin MD Service: Nephrology Author Type: Physician Filed: 06/05/18 1253 Date of Service: 06/01/18 1052 Status: Signed Embossing Press Operator Molded Goods: Antonio Benjamin MD (Physician) [facility] Service: NEPHROLOGY Dialysis/ Progress Note Dara Louise 23 y.o. [phone] [id number] female [facility] Day: LOS: 6 days Patient with PMH [...] REPAIR/REVISION; Surgeon: Rik Simon MD; Location: [facility] IN OR; Service: Vascular; Laterality: Left; DECLOT GRAFT Left 03/07/2014 Procedure: GRAFT - DECLOT; Surgeon: Rik Simon MD; Location: [facility] OR; Service: Vas cular; Laterality: Left; DIALYSIS FISTULA CREATION N/A 04/08/2014 Procedure: DIALYSIS CATHETER - INSERTION; Surgeon: Rik Simon MD; Location: [facility] OR ; Service: Vascular; Laterality: N/A; tunneled catheter LAPAROSCOPIC PERITONEAL DIALYSIS CATHETER INSERTION x2 LAPAROSCOPIC PERITONEAL DIALYSIS CATHETER INSERTION Right 07/2013 current dialysis access MWF dialysis RENAL BIOPSY SUPERFICIALIZATION OF AV FISTULA Left 06/24/2014 Procedure: AV FISTULA - SUPERFICIALIZATION; Surgeon: Rik Simon MD; Location: [facility] OR; Service: Vascular; Laterality: Left; History reviewed. [...] 17. The mitral valve is normal. 18. Pwsu-yu-bxmyhjrm eccentric mitral regurgitation i s present. 19. [...] mitral valve is normal. Mitral Kait ve: Xykz-zy-helbtfmk eccentric mitral regurgitation is present. Tricuspid Valve: [...] maxP.08 mmHg TR Vmax: 2.7 4 m/s Nuclear Weapons Specialist: MOO Authenticated by: Robel Yusuf MD Report [...] 17. The mitral valve is normal. 18. Ebat-um-vcvew ate eccentric mitral regurgitation is present. 19. [...] pleural spac e is punctured with an 8-Scottish thoracentesis catheter. Fluid is aspirated without complicat [...] earlier and charting completed later Dictation software, [employer], used which may contain error for similar [...] 0632 Date of Service: 06/01/1835 Status: Signed Embossing Press Operator Molded Goods: Aury Eldridge RN (Registered Nurse) Pts VSS. [...] 05/31/181840 Date of Service: 05/31/181840 Status: Signed Embossing Press Operator Molded Goods: Romelia Cooley RN (Registered Nurse) End of shift chart review complete. Romelia Cooley RN koum, Marnie Mckeon MD - 05/31/2018 11:32 AM PDTFormatting of this note might be different from the candice ginal. Progress Notes by Marnie Anguiano MD at 05/31/18 113 Author: Marnie Anguiano MD Service: Nephrology Author Type: Physician Filed: 05/31/18 1654 Date of Service: 05/31/18 113 Status: Addendum Embossing Press Operator Molded Goods: Marnie Anguiano MD (Physician) Related Notes: Original [...] put on "an antibiotic" for pneumonia at [facility]. Was throwing up & could not [...] the prelim submitted orders, MWF No acute [employer]ER indication ESTEFANY as indicated with HD Protein [...] 05/31/1851 Date of Service: 05/31/18941 Status: Signed Embossing Press Operator Molded Goods: Darell Rossi MD (Physician) [facility] Service: Hospitalist Progress Note Pt: Dara Louise AGE/SEX: 23 y.o. female ROOM: [address] [place] [address] : 1995 PCP: TIEN NICHOLSON ADMIT DATE: 05/26/2018 TODAY'S DATE: 05/31/2018 Hospital Day/Hospital Course: LOS: [address] Figueroa 23-year-old female with past medical history of end-stage renal disease on hemodialysis Mon, hypertension, anemia of chronic disease who went to [facility] with increasing shortness of breath found to have right pleural effusion who was transfer red to [facility] underwent right-sided diagnostic and therapeutic thoracocentesis [...] Component Value Units Date/Time Culture, Body Fluid [[id number]] Collected: 05/26/18 1412 Specimen: Body Fluid from Pleural Fluid Updated: 05/30/18 0733 Specimen Description PLEURAL FLUID GRAM STAIN WBC'S SEEN GRAM STAIN NO ORGANISMS SEEN GRAM STAIN STAIN PERFORMED ON CYTOSPIN CULTURE NO GROWTH 4 DAYS Culture, Body Fluid [[id number]] Collected: 05/26/18 1513 Specimen: Other from Ascites Fluid Updated: 05/30/18 0732 Specimen Description ASCITES FLUID GRAM STAIN STAIN PERFORMED ON CYTOSPIN GRAM STAIN WBC'S SEEN GRAM STAIN NO EPITHELIAL CELLS SEEN GRAM STAIN NO ORGANISMS SEEN CULTURE NO GROWTH 4 DAYS Gram stain [[id number]] Collected: 05/29/18 1256 Specimen: Sputum from Thoracic Fluid Updated: 05/29/18 2339 Specimen Description THORACIC FLUID CULTURE 1+ WBC'S SEEN NO ORGANISMS SEEN Lactate dehydrogenase, body fluid [[id number]] Collected: 05/29/18 1256 Specimen: Body Fluid from Pleural, Right Updated: 05/29/18 1619 FLUID LDH 151 U/L Cholesterol, body fluid [[id number]] Collected: 05/29/18 1256 Specimen: Body Fluid from Pleural, Right Updated: 05/29/18 1619 FLUID CHOLESTEROL 56 mg/dL Sputum culture [[id number]] Collected: 05/27/182014 Specimen: Sputum from Sputum Updated: [...] 17. The mitral valve is normal. 18. Pvlu-op-erpka ate eccentric mitral regurgitation is present. 19. [...] in any kind of distress. guest services agent to initiate the discharge plan. Possible dischar [...] MD, FACP 05/31/2018 9:42 AM Dictation software, [employer], used which may contain error for similar [...] 05/31/18253 Date of Service: 05/31/18253 Status: Signed Embossing Press Operator Molded Goods: Nandini Robertson RN (Registered Nurse) Chart review completed. onver arturo Transaction, Provider Unknown - 05/30/2018 6:37 PM PDT Nurse Progress Note by Kyra Amador RN at 05/30/181836 Author: Kyra Amador RN Service: (none) Author Type: Registered Nurse Filed: 05/30/18 1843 Date of Service: 05/30/181836 Status: Signed Embossing Press Operator Molded Goods: Kyra Amador RN (Registered Nurse) VSS. Pt [...] 1243 Date of Service: 05/30/18908 Status: Signed Embossing Press Operator Molded Goods: Darell Rossi MD (Physician) [facility] Service: Hospitalist Progress Note Pt: Dara Louise AGE/SEX: 23 y.o. female ROOM: [facility]- : 1995 PCP: TIEN NICHOLOSN ADMIT DATE: 05/26/2018 TODAY'S DATE: 05/30/2018 Hospital Day/Hospital Course: LOS: [address] Figueroa 23-year-old female with past medical history of end-stage renal disease on hemodialysis Mon, hypertension, anemia of chronic disease who went to [facility] with increasing shortness of breath found to have right pleural effusion who was transfer red to [facility] underwent right-sided diagnostic and therapeutic thoracocentesis [...] Component Value Units Date/Time Culture, Body Fluid [[id number]] Collected: 05/26/18 1412 Specimen: Body Fluid from Pleural Fluid Updated: 05/30/18 0733 Specimen Description PLEURAL FLUID GRAM STAIN WBC'S SEEN GRAM STAIN NO ORGANISMS SEEN GRAM STAIN STAIN PERFORMED ON CYTOSPIN CULTURE NO GROWTH 4 DAYS Culture, Body Fluid [[id number]] Collected: 05/26/18 1513 Specimen: Other from Ascites Fluid Updated: 05/30/18 0732 Specimen Description ASCITES FLUID GRAM STAIN STAIN PERFORMED ON CYTOSPIN GRAM STAIN WBC'S SEEN GRAM STAIN NO EPITHELIAL CELLS SEEN GRAM STAIN NO ORGANISMS SEEN CULTURE NO GROWTH 4 DAYS Gram stain [[id number]] Collected: 05/29/18 1256 Specimen: Sputum from Thoracic Fluid Updated: 05/29/18 2339 Specimen Description THORACIC FLUID CULTURE 1+ WBC'S SEEN NO ORGANISMS SEEN Lactate dehydrogenase, body fluid [[id number]] Collected: 05/29/18 1256 Specimen: Body Fluid from Pleural, Right Updated: 05/29/18 1619 FLUID LDH 151 U/L Cholesterol, body fluid [[id number]] Collected: 05/29/18 1256 Specimen: Body Fluid from Pleural, Right Updated: 05/29/18 1619 FLUID CHOLESTEROL 56 mg/dL Sputum culture [[id number]] Collected: 05/27/182014 Specimen: Sputum from Sputum Updated: [...] 17. The mitral valve is normal. 18. Urdf-nx-nublg ate eccentric mitral regurgitation is present. 19. [...] MD, FACP 05/30/2018 9:10 AM Dictation software, [employer], used which may contain error for similar [...] 05/30/18417 Date of Service: 05/30/18416 Status: Signed Embossing Press Operator Molded Goods: Nandini Robertson RN (Registered Nurse) Pt did well overnight. VSS. Chart review completed. Carolina Cantor, Medical Student - 05/29/2018 7:56 PM PDT Progress Notes by Carolina Mahmood DO at 05/29/181955 Author: Carolina Mahmood DO Service: Cardiology Author Type: Physician Filed: 05/29/182014 Date of Service: 05/29/181955 Status: Signed Embossing Press Operator Molded Goods: Carolina Mahmood DO (Physician) [facility] Service: Cardiology Progress Note Hospital [...] 05/29/181742 Date of Service: 05/29/181739 Status: Signed Embossing Press Operator Molded Goods: Flaco Can RN (Registered Nurse) Pt VSS. [...] 05/29/187 Date of Service: 05/29/181342 Status: Signed Embossing Press Operator Molded Goods: Anthony Figueroa MD (Physician) Hospitalist Progress Note Dara Louise 23 y.o. [id number] female [facility] Day: LOS: 3 days Patient Summary: 23-year-old female with past medical history of end-stage renal dis ease on hemodialysis Monday, hypertension, anemia of chronic disease who we nt to [facility] with increasing shortness of breath found to have right pleural e ffusion who was transferred to [facility] underwent right-sided diagnostic and therapeu tic [...] Value Units Date/Time Lactate dehydrogenase, body fluid [[id number]] Collected: 05/29/18 125 Specimen: Body Fluid from Pleural, Right Updated: 05/29/18 131 Cholesterol, body fluid [[id number]] Collected: 05/29/18 125 Specimen: Body Fluid from Pleural, Right Updated: 05/29/18 1315 Gram stain [[id number]] Collected: 05/29/18 125 Specimen: Sputum from OTHR-w source desc (F6) Updated: 05/29/18 1309 Sputum culture [[id number]] Collected: 05/27/182014 Specimen: Sputum from Sputum Updated: 05/29/18 0947 Specimen Description SPUTUM GRAM STAIN LESS THAN 10 WBCS/LPF GRAM STAIN LESS THAN 10 SEC/LPF GRAM STAIN NO ORGANISMS SEEN CULTURE 1+ NORMAL UPPER RESPIRATORY ALESSANDRO HIV 1/2 Ab reflex [[id number]] Collected: 05/28/18 1236 Specimen: Blood Updated: 05/29/1842 HIV1/HIV2 NON REACTIVE Protime-INR [[id number]] Collected: 05/29/18851 Specimen: Blood Updated: 05/29/18939 INR 1.5 APTT [[id number]] Collected: 05/29/18851 Specimen: Blood Updated: 05/29/18939 APTT 29 seconds Culture, Body Fluid [[id number]] Collected: 05/26/18 1513 Specimen: Other from Ascites Fluid Updated: 05/29/18919 Specimen Description ASCITES FLUID GRAM STAIN STAIN PERFORMED ON CYTOSPIN GRAM STAIN WBC'S SEEN GRAM STAIN NO EPITHELIAL CELLS SEEN GRAM STAIN NO ORGANISMS SEEN CULTURE NO GROWTH 3 DAYS Culture, Body Fluid [[id number]] Collected: 05/26/18 1412 Specimen: Body Fluid from Pleural Fluid Updated: 05/29/18917 Specimen Description PLEURAL FLUID CULTURE NO GROWTH 3 DAYS Comprehensive metabolic panel [[id number]] (Abnormal) Collected: 05/29/18456 Specimen: Blood Updated: 05/29/18615 [...] mL/min/1.73m2 CBC W/Auto Diff (Reflex to Manual) [[id number]] (Abnormal) Collected: 05/29/18456 Specimen: Blood Updated: 05/29/18612 [...] 0.05 K/uL MORPHOLOGY 2+ hCG, serum, qualitative [[id number]] Collected: 05/28/18922 Specimen: Blood Updated: 05/28/18 1950 TEST,SERUM NEGATIVE C-reactive protein [[id number]] (Abnormal) Collected: 05/28/18922 Specimen: Blood Updated: 05/28/18 1941 CRP 5.1 (H) mg/dL Sedimentation rate, automated [[id number]] Collected: 05/28/18922 Specimen: Blood Updated: 05/28/18 1734 ESR 2 mm/Hr Hepatitis panel,acute [[id number]] Collected: 05/28/18 1236 Specimen: Blood Updated: 05/28/18 1650 HAV AB,IGM NON REACTIVE HEP B SURFACE AG NON REACTIVE ANTI HEP B CORE,IGM NON REACTIVE HEPATITIS C NON REACTIVE HEPATITIS INTERP No serologic evidence of HAV, HBV, or HCV infection. Troponin I [[id number]] Collected: 05/28/18922 Specimen: Blood Updated: 05/28/18 1437 TROPONIN I 0.034 ng/mL Troponin I [[id number]] Collected: 05/28/18 1359 Specimen: Blood Updated: 05/28/18 1437 TROPONIN I 0.037 ng/mL Renal function panel [[id number]] (Abnormal) Collected: 05/28/18 1209 Specimen: Blood from Blood Updated: 05/28/18 1302 SODIUM 141 mmol/L POTASSIUM 4.3 mmol/L CHLORIDE 101 mmol/L CO2 29 mmol/L ANION GAP AGAP 15 mmol/L GLUCOSE 78 mg/dL BUN 43 (H) mg/dL CREATININE 7.97 (H) mg/dL CALCIUM 9.1 mg/dL Albumin 3.6 g/dL PHOSPHORUS 6.3 (H) mg/dL EGFR 6 (L) mL/min/1.73m2 CBC W/Auto Diff (Reflex to Manual) [[id number]] (Abnormal) Collected: 05/28/18922 Specimen: Blood Updated: 05/28/18 [...] 0.05 K/uL MORPHOLOGY 1+ Comprehensive metabolic panel [[id number]] (Abnormal) Collected: 05/28/18922 Specimen: Blood Updated: 05/28/18 [...] (H) U/L EGFR 6 (L) mL/min/1.73m2 TSH [[id number]] Collected: 05/28/18922 Specimen: Blood Updated: 05/28/18 1210 TSH 1.270 uIU/mL Pathologist consult [[id number]] Collected: 05/26/18 1412 Updated: 05/28/18 1113 Pathologist Consult -- Hepatitis panel, chronic [[id number]] (Abnormal) Collected: 05/27/18 1758 Updated: 05/27/182030 Hep A Total Ab REACTIVE (A) HEP B SURFACE AG NON REACTIVE HEP B CORE AB,TOTAL NON REACTIVE HEP B SURFACE ANTIBODY 3.27 (H) IV HEPATITIS C NON REACTIVE HEPATITIS INTERP Current or past HAV infection. Past HBV infection or vaccination. No ser ologic evidence of HCV infection. CBC w/auto diff (reflex to manual) [[id number]] (Abnormal) Collected: 05/27/18424 Specimen: Blood Updated: 05/27/18 [...] K/uL MORPHOLOGY 2+ Platelet Estimate DECREASED Phosphorus [[id number]] (Abnormal) Collected: 05/27/18424 Specimen: Blood Updated: 05/27/18628 PHOSPHORUS 8.0 (H) mg/dL Basic Metabolic Panel [[id number]] (Abnormal) Collected: 05/27/18424 Specimen: Blood Updated: 05/27/18628 SODIUM 135 mmol/L POTASSIUM 5.9 (H) mmol/L CHLORIDE 96 (L) mmol/L CO2 25 mmol/L ANION GAP AGAP 20 mmol/L GLUCOSE 74 mg/dL BUN 51 (H) mg/dL CREATININE 9.2 (H) mg/dL BUN/CREAT 6 CALCIUM 9.4 mg/dL EGFR 5 (L) mL/min/1.73m2 Magnesium [[id number]] (Abnormal) Collected: 05/27/18424 Specimen: Blood Updated: 05/27/1829 MAGNESIUM 2.7 (H) mg/dL Brain natriuretic peptide [[id number]] (Abnormal) Collected: 05/27/18424 Specimen: Blood Updated: 05/27/18 0546 BRAIN NATRIURETIC PEPTIDE 1,153.92 (H) pg/mL Respiratory Filmarray [[id number]] (Abnormal) Collected: 05/26/181805 Specimen: Nasopharynx/Oropharynx Updated: 05/26/182141 [...] performed by Molecular Methodology MRSA by PCR [[id number]] Collected: 05/26/18 1806 Specimen: Nasopharyngeal from Nares(Nose) Updated: 05/26/182025 SOURCE NARES(NOSE) MRSA PCR NEGATIVE Procalcitonin [[id number]] (Abnormal) Collected: 05/26/18 1727 Updated: 05/26/18 1839 PROCALCITONIN 0.76 (H) ng/mL Albumin, Body Fluid [[id number]] Collected: 05/26/18 141 Specimen: Body Fluid from Lung, Right Lower Lobe Updated: 05/26/18 172 FLUID ALBUMIN 2.3 g/dL Total Protein, Body Fluid [[id number]] Collected: 05/26/181411 Specimen: Body Fluid from Lung, Right Lower Lobe Updated: 05/26/181728 FLUID TOTAL PROTEIN 4.2 g/dL FLUID TP SOURCE PLEURAL FLUID Cell count, Body Fluid [[id number]] Collected: 05/26/181411 Specimen: Body Fluid from Lung, Right Lower Lobe Updated: 05/26/18 1708 FLUID TYPE PLEURAL FLUID COLOR SAMMIE APPEARANCE CLOUDY RBC'S 3,000 /mm3 TOTAL NUCLEATED CELLS 253 /mm3 NEUTROPHILS 22 % LYMPHOCYTES 8 % MONOCYTES/MACROPHAGES 65 % Mesothelial Cells 5 % CELLS COUNTED 100 pH, Body Fluid [[id number]] Collected: 05/26/181411 Specimen: Body Fluid from Lung, [...] radiologist report and is used for image [employer] only Us Abdomen Limited Result Date: 05/28/2018 [...] 17. The mitral valve is normal. 18. Yzyx-mr-onhujjvd eccentric mitral regurgitation i s present. 19. [...] mitral valve is normal. Mitral Kait ve: Dhdx-hk-cjpkzgdu eccentric mitral regurgitation is present. Tricuspid Valve: [...] maxP.08 mmHg TR Vmax: 2.7 4 m/s Nuclear Weapons Specialist: MOO Authenticated by: Robel Yusuf MD Report [...] 17. The mitral valve is normal. 18. Lmow-wm-qxvpc ate eccentric mitral regurgitation is present. 19. [...] Service: Nephrology Author Type: Physician Filed: 05/31/18 3416 Date of Service: 05/29/18725 Status: Addendum Embossing Press Operator Molded Goods: Marnie Anguiano MD (Physician) Related Notes: Original Note by KRISHNA Waters (Nurse Practitioner) filed at 05/05 08/22 3586 Hospital Problem List: Active Problems: ESRD on [...] put on "an antibiotic" for pneumonia at [facility]. Was throwing up & could not [...] the prelim submitted orders, MWF No acute [employer] HOME [employer]ER indication ESTEFANY as indicated with HD Protein [...] 05/29/18554 Date of Service: 05/29/18553 Status: Signed Embossing Press Operator Molded Goods: Vernell Weston RN (Registered Nurse) End of [...] 05/28/181940 Date of Service: 05/28/181939 Status: Signed Embossing Press Operator Molded Goods: Saundra Hartley RN (Registered Nurse) No acute [...] 05/28/181721 Date of Service: 05/28/181720 Status: Signed Embossing Press Operator Molded Goods: Cayden Caceres RN (Registered Nurse) UF 2 L with HD today. Anthony Monteiro MD - 05/28/2018 12:26 PM PDTFormatting of this note might be different from the or iginal. Progress Notes by Anthony Figueroa MD at 05/28/18 1226 Author: Anthony Figueroa MD Service: Hospitalist Author Type: Physician Filed: 05/28/18 1233 Date of Service: 05/28/186 Status: Signed Embossing Press Operator Molded Goods: Anthony Figueroa MD (Physician) Hospitalist Progress Note Dara Louise 23 y.o. [id number] female [facility] Day: LOS: 2 days Patient Summary: 23-year-old female with past medical history of end-stage renal dis ease on hemodialysis Monday, hypertension, anemia of chronic disease who we nt to [facility] with increasing shortness of breath found to have right pleural e ffusion who was transferred to [facility] underwent right-sided diagnostic and therapeu tic [...] Component Value Units Date/Time Culture, Body Fluid [[id number]] Collected: 05/26/18 151 Specimen: Other from Ascites Fluid Updated: 05/28/18 122 Specimen Description ASCITES FLUID GRAM STAIN STAIN PERFORMED ON CYTOSPIN GRAM STAIN WBC'S SEEN GRAM STAIN NO EPITHELIAL CELLS SEEN GRAM STAIN NO ORGANISMS SEEN CULTURE NO GROWTH 2 DAYS Culture, Body Fluid [[id number]] Collected: 05/26/181411 Specimen: Body Fluid from Pleural Fluid Updated: 05/28/18 122 Specimen Description PLEURAL FLUID CULTURE NO GROWTH 2 DAYS Comprehensive metabolic panel [[id number]] (Abnormal) Collected: 05/28/18922 Specimen: Blood Updated: 05/28/18 [...] (H) U/L EGFR 6 (L) mL/min/1.73m2 TSH [[id number]] Collected: 05/28/18922 Specimen: Blood Updated: 05/28/18 1210 TSH 1.270 uIU/mL Pathologist consult [[id number]] Collected: 05/26/18 1412 Updated: 05/28/18 1113 Pathologist Consult -- Troponin I [[id number]] Collected: 05/28/18922 Specimen: Blood Updated: 05/28/18 1055 CBC W/Auto Diff (Reflex to Manual) [[id number]] Collected: 05/28/18922 Specimen: Blood Updated: 05/28/18938 Sputum culture [[id number]] Collected: 05/27/182014 Specimen: Sputum from Sputum Updated: 05/28/18902 Specimen Description SPUTUM GRAM STAIN LESS THAN 10 WBCS/LPF GRAM STAIN LESS THAN 10 SEC/LPF GRAM STAIN NO ORGANISMS SEEN CULTURE CULTURE IN PROGRESS Hepatitis panel, chronic [[id number]] (Abnormal) Collected: 05/27/181757 Updated: 05/27/182030 Hep A Total Ab REACTIVE (A) HEP B SURFACE AG NON REACTIVE HEP B CORE AB,TOTAL NON REACTIVE HEP B SURFACE ANTIBODY 3.27 (H) IV HEPATITIS C NON REACTIVE HEPATITIS INTERP Current or past HAV infection. Past HBV infection or vaccination. No ser ologic evidence of HCV infection. CBC w/auto diff (reflex to manual) [[id number]] (Abnormal) Collected: 05/27/18424 Specimen: Blood Updated: 05/27/18710 [...] K/uL MORPHOLOGY 2+ Platelet Estimate DECREASED Phosphorus [[id number]] (Abnormal) Collected: 05/27/18424 Specimen: Blood Updated: 05/27/18628 PHOSPHORUS 8.0 (H) mg/dL Basic Metabolic Panel [[id number]] (Abnormal) Collected: 05/27/18424 Specimen: Blood Updated: 05/27/18628 SODIUM 135 mmol/L POTASSIUM 5.9 (H) mmol/L CHLORIDE 96 (L) mmol/L CO2 25 mmol/L ANION GAP AGAP 20 mmol/L GLUCOSE 74 mg/dL BUN 51 (H) mg/dL CREATININE 9.2 (H) mg/dL BUN/CREAT 6 CALCIUM 9.4 mg/dL EGFR 5 (L) mL/min/1.73m2 Magnesium [[id number]] (Abnormal) Collected: 05/27/18424 Specimen: Blood Updated: 05/27/18 0629 MAGNESIUM 2.7 (H) mg/dL Brain natriuretic peptide [[id number]] (Abnormal) Collected: 05/27/18424 Specimen: Blood Updated: 05/27/18 0546 BRAIN NATRIURETIC PEPTIDE 1,153.92 (H) pg/mL Respiratory Filmarray [[id number]] (Abnormal) Collected: 05/26/181805 Specimen: Nasopharynx/Oropharynx Updated: 05/26/182141 [...] performed by Molecular Methodology MRSA by PCR [[id number]] Collected: 05/26/181805 Specimen: Nasopharyngeal from Nares(Nose) Updated: 05/26/182025 SOURCE NARES(NOSE) MRSA PCR NEGATIVE Procalcitonin [[id number]] (Abnormal) Collected: 05/26/18 172 Updated: 05/26/18 1839 PROCALCITONIN 0.76 (H) ng/mL Albumin, Body Fluid [[id number]] Collected: 05/26/18 141 Specimen: Body Fluid from Lung, Right Lower Lobe Updated: 05/26/181728 FLUID ALBUMIN 2.3 g/dL Total Protein, Body Fluid [[id number]] Collected: 05/26/18 141 Specimen: Body Fluid from Lung, Right Lower Lobe Updated: 05/26/181728 FLUID TOTAL PROTEIN 4.2 g/dL FLUID TP SOURCE PLEURAL FLUID Cell count, Body Fluid [[id number]] Collected: 05/26/181411 Specimen: Body Fluid from Lung, Right Lower Lobe Updated: 05/26/18 1708 FLUID TYPE PLEURAL FLUID COLOR SAMMIE APPEARANCE CLOUDY RBC'S 3,000 /mm3 TOTAL NUCLEATED CELLS 253 /mm3 NEUTROPHILS 22 % LYMPHOCYTES 8 % MONOCYTES/MACROPHAGES 65 % Mesothelial Cells 5 % CELLS COUNTED 100 pH, Body Fluid [[id number]] Collected: 05/26/18 1412 Specimen: Body Fluid from Lung, Right Lower Lobe Updated: 05/26/18 1508 FLUID PH 7.45 Procalcitonin [[id number]] (Abnormal) Collected: 05/26/18 1214 Updated: 05/26/18 1330 PROCALCITONIN 0.56 (H) ng/mL Cardiac Panel [[id number]] (Abnormal) Collected: 05/26/18 1214 Updated: 05/26/18 1312 [...] ng/mL CK-MB Index 2.7 Brain natriuretic peptide [[id number]] (Abnormal) Collected: 05/26/18 1214 Updated: 05/26/18 1254 [...] radiologist report and is used for image [facility] Jason[facility] only Echo Cardiac Adult Complete Result Date: [...] 17. The mitral valve is normal. 18. Plnb-qz-ghosghfl eccentric mitral regurgitation i s present. 19. [...] mitral valve is normal. Mitral Kait ve: Rzyj-zu-lobcqtsv eccentric mitral regurgitation is present. Tricuspid Valve: [...] maxP.08 mmHg TR Vmax: 2.7 4 m/s Nuclear Weapons Specialist: MOO Authenticated by: Robel Yusuf MD Report [...] 17. The mitral valve is normal. 18. Sqff-xe-fhiuk ate eccentric mitral regurgitation is present. 19. [...] 05/28/18707 Date of Service: 05/28/18703 Status: Signed Embossing Press Operator Molded Goods: Timothy Butler RN (Registered Nurse) Pt A&Ox4 [...] 05/27/181957 Date of Service: 05/27/181954 Status: Signed Embossing Press Operator Molded Goods: Vernell Weston RN (Registered Nurse) Called into [...] 05/27/181924 Date of Service: 05/27/181922 Status: Signed Embossing Press Operator Molded Goods: Saundra Hartley RN (Registered Nurse) Pt has [...] Author: DORON Ashby Service: (none) Author Type: Primer Expeditor And Drier Filed: 05/27/181533 Date of Service: 05/27/181529 Status: Signed Embossing Press Operator Molded Goods: DORON Ashby (Primer Expeditor And Drier) 05/27/181529 Discharge Planning Evaluation Admitting Diagnosis SOB [...] Patient/Family concerns No Met with Dara Louise ([phone]) and discussed discharge planning. Pt is a 23 y.o., female who resides alone in [place], [place]. Pt states that she has supportive family and frie nds. Pt's mother lives 50 miles away; pt's sister lives 15 minutes away. Pt is independent and does not have a caregiver. Patient's PCP is: TIEN NICHOLSON Patient's insurance: Medicare and Medicaid Coverage concerns: None Medication coverage/concerns: None Community resources utilized / needed: Pt does outpatient dialysis at [facility] on Monday, Monday and Monday Assistance [...] Notes by Anthony Figueroa MD at 05/27/18 9370 Author: Anthony Figueroa MD Service: Hospitalist Author Type: Physician Filed: 05/27/18 9166 Date of Service: 05/27/181324 Status: Signed Embossing Press Operator Molded Goods: Anthony Figueroa MD (Physician) Hospitalist Progress Note Dara Louise 23 y.o. [phone] [id number] female [facility] Day: LOS: 1 day Patient Summary: 23-year-old female with past medical history of end-stage renal dis ease on hemodialysis Monday, hypertension, anemia of chronic disease who we nt to [facility] with increasing shortness of breath found to have right pleural e ffusion who was transferred to [facility] underwent right-sided diagnostic and therapeu tic [...] Date/Time CBC w/auto diff (reflex to manual) [[id number]] (Abnormal) Collected: 05/27/18424 Specimen: Blood Updated: 05/27/18710 [...] K/uL MORPHOLOGY 2+ Platelet Estimate DECREASED Phosphorus [[id number]] (Abnormal) Collected: 05/27/18424 Specimen: Blood Updated: 05/27/18 06 PHOSPHORUS 8.0 (H) mg/dL Basic Metabolic Panel [[id number]] (Abnormal) Collected: 05/27/18424 Specimen: Blood Updated: 05/27/18628 SODIUM 135 mmol/L POTASSIUM 5.9 (H) mmol/L CHLORIDE 96 (L) mmol/L CO2 25 mmol/L ANION GAP AGAP 20 mmol/L GLUCOSE 74 mg/dL BUN 51 (H) mg/dL CREATININE 9.2 (H) mg/dL BUN/CREAT 6 CALCIUM 9.4 mg/dL EGFR 5 (L) mL/min/1.73m2 Magnesium [[id number]] (Abnormal) Collected: 05/27/18424 Specimen: Blood Updated: 05/27/1829 MAGNESIUM 2.7 (H) mg/dL Brain natriuretic peptide [[id number]] (Abnormal) Collected: 05/27/18424 Specimen: Blood Updated: 05/27/18 0546 BRAIN NATRIURETIC PEPTIDE 1,153.92 (H) pg/mL Respiratory Filmarray [[id number]] (Abnormal) Collected: 05/26/181805 Specimen: Nasopharynx/Oropharynx Updated: 05/26/182141 [...] performed by Molecular Methodology MRSA by PCR [[id number]] Collected: 05/26/181805 Specimen: Nasopharyngeal from Nares(Nose) Updated: 05/26/182025 SOURCE NARES(NOSE) MRSA PCR NEGATIVE Procalcitonin [[id number]] (Abnormal) Collected: 05/26/18 1727 Updated: 05/26/18 1839 PROCALCITONIN 0.76 (H) ng/mL Culture, Body Fluid [[id number]] Collected: 05/26/18 141 Specimen: Body Fluid from Pleural Fluid Updated: 05/26/18 1811 Pathologist consult [[id number]] Collected: 05/26/18 141 Updated: 05/26/18 1742 Albumin, Body Fluid [[id number]] Collected: 05/26/18 141 Specimen: Body Fluid from Lung, Right Lower Lobe Updated: 05/26/18 172 FLUID ALBUMIN 2.3 g/dL Total Protein, Body Fluid [[id number]] Collected: 05/26/18 141 Specimen: Body Fluid from Lung, Right Lower Lobe Updated: 05/26/18 172 FLUID TOTAL PROTEIN 4.2 g/dL FLUID TP SOURCE PLEURAL FLUID Cell count, Body Fluid [[id number]] Collected: 05/26/18 141 Specimen: Body Fluid from Lung, Right Lower Lobe Updated: 05/26/18 1708 FLUID TYPE PLEURAL FLUID COLOR SAMMIE APPEARANCE CLOUDY RBC'S 3,000 /mm3 TOTAL NUCLEATED CELLS 253 /mm3 NEUTROPHILS 22 % LYMPHOCYTES 8 % MONOCYTES/MACROPHAGES 65 % Mesothelial Cells 5 % CELLS COUNTED 100 Culture, Body Fluid [[id number]] Collected: 05/26/18 1513 Specimen: Other from Ascites Fluid Updated: 05/26/18 1631 Specimen Description ASCITES FLUID GRAM STAIN STAIN PERFORMED ON CYTOSPIN GRAM STAIN WBC'S SEEN GRAM STAIN NO EPITHELIAL CELLS SEEN GRAM STAIN NO ORGANISMS SEEN CULTURE PENDING pH, Body Fluid [[id number]] Collected: 05/26/18 1412 Specimen: Body Fluid from Lung, Right Lower Lobe Updated: 05/26/18 1508 FLUID PH 7.45 Procalcitonin [[id number]] (Abnormal) Collected: 05/26/18 1214 Updated: 05/26/18 1330 PROCALCITONIN 0.56 (H) ng/mL Cardiac Panel [[id number]] (Abnormal) Collected: 05/26/18 1214 Updated: 05/26/18 1312 [...] ng/mL CK-MB Index 2.7 Brain natriuretic peptide [[id number]] (Abnormal) Collected: 05/26/18 1214 Updated: 05/26/18 1254 [...] radiologist report and is used for image [facility] JasonDB only PROBLEM LIST Active Problems: ESRD on [...] 05/27/18546 Date of Service: 05/27/18543 Status: Signed Embossing Press Operator Molded Goods: Vernell Weston RN (Registered Nurse) End of [...] 05/26/181950 Date of Service: 05/26/181947 Status: Signed Embossing Press Operator Molded Goods: Saundra Hartley RN (Registered Nurse) Pt complained [...] complete. George Hartley RN Electronically signed by [facility], Provider at 10/13/2018 8:52 PM PDTConver arturo Transaction, Provider Unknown - 05/26/2018 6:05 PM PDT Progress Notes by Jae Gutierres RPH at 05/26/181804 Author: Jae Gutierres RPH Service: Pharmacy Author Type: Pharmacist Filed: 05/26/181804 Date of Service: 05/26/181804 Status: Signed Embossing Press Operator Molded Goods: Jae Gutierres RPH (Pharmacist) Renal Dosing Monitoring: S: Renal dose monitoring per protocol. O: HD patient A: No adjustments needed at this time. P: Pharmacy will continue monitoring patient for appropriate dosing based on renal functio n. Pharmacist: Jae Gutierres PharmD docume nted in this encounter H&P Notes Mayco Rizvi MD - 05/26/2018 1:58 PM PDTFormatting of this note might be different from th e original. H&P by Mayco Rizvi MD at 05/26/18 1881 Author: Mayco Rizvi MD Service: (none) Author Type: Physician Filed: 05/26/18 6031 Date of Service: 05/26/18 6344 Status: Addendum Embossing Press Operator Molded Goods: Mayco Rizvi MD (Physician) Related Notes: Original Note by Mayco Rizvi MD (Physician) filed at 05/26/18 6633 [facility] Service: Hospitalist Admission History & Physical Pt: Dara Louise AGE/SEX: 23 y.o. 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 89 BUn 41 cPK 291 [id number] Lactic was normal procal 0.56 Xray chest At [facility] worsening consolidation effusion on the right, [...] MD; Location: [facility] [place] IN [place]; Service: Vascular; Laterality: Left; DECLOT GRAFT Left 03/07/2014 Procedure: GRAFT - DECLOT; Surgeon: Rik Simon MD; Location: [facility] MAIN OR; Service: Vas cular; Laterality: Left; DIALYSIS FISTULA CREATION N/A 04/08/2014 Procedure: DIALYSIS CATHETER - INSERTION; Surgeon: Rik Simon MD; Location: 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 Other recommendations for manageme nt of this [...] Service: Nephrology Author Type: Physician Filed: 05/31/18 3089 Date of Service: 05/30/18 1014 Status: Addendum Embossing Press Operator Molded Goods: Marnie Anguiano MD (Physician) Related Notes: Original Note by KRISHNA Waters (Nurse Practitioner) filed at 05/05 09/21 1514 Procedure Orders: 1. Hemodialysis [[id number]] ordered by Marnie Anguiano MD at 05/30/18 [...] put on "an antibiotic" for pneumonia at [facility] ED. Was throwing up & could not [...] Date of Service: 05/28/18 1334 Status: Addendum Embossing Press Operator Molded Goods: Marnie Anguiano MD (Physician) Related Notes: Original Note by KRISHNA Waters (Nurse Practitioner) filed at 05/05 07/22 1411 Procedure Orders: 1. Hemodialysis [[id number]] ordered by Marnie Anguiano MD at 05/27/18 [...] LUX Goodwin Service: Cardiology Author Type: Physician Bioinformatics Analyst Filed: 05/28/18 4214 Date of Service: 05/28/18 1118 Status: Attested Embossing Press Operator Molded Goods: LUX Goodwin (Physician Bioinformatics Analyst) Cosigner: Carolina Mahmood DO at 0 05/28/181829 Consult Orders: 1. Inpatient consult to Cardiology [[id number]] ordered by Anthony Figueroa MD at 05/28/18 [...] ESRD, asthma and hypertension. She presented to [place] clinic last week with shortness of breath, cough, chills/sweats and nausea x 1 week and was starte d on doxycycline for suspected pneumonia. She did not improve and went to [place]'s ED with CXR noting right pleural effusion and consolidation, she was discharged but ende d up back in [place] ED due to worsening shortness of breath and was found to be hypox ic O2 sats 88%. She was transferred to [facility] for worsening right pleural effusion [...] part of transplant evaluation. Last echocardiogram at [facility] demonstrati ng normal LV and RV size [...] History Diagnosis Date Anemia Clotted dialysis access ([facility]) 2014 ESRD (end stage renal disease) (HCC) HSP (Henoch-Schonlein purpura) nephritis Hypertension Past Surgical History Procedure Laterality Date ABDOMINAL SURGERY AV FISTULA PLACEMENT AV FISTULA PLACEMENT Left 04/08/2014 Procedure: AV FISTULA; Surgeon: Rik Simon MD; Location: [facility] OR; Service: Vascula r; Laterality: Left; cephalic AV FISTULA REPAIR Left 03/07/2014 Procedure: AV FISTULA - GRAFT REPAIR/REVISION; Surgeon: Rik Simon MD; Location: [facility] IN OR; Service: Vascular; Laterality: Left; DECLOT GRAFT Left 03/07/2014 Procedure: GRAFT - DECLOT; Surgeon: Rik Simon MD; Location: [facility] MAIN OR; Service: Vas cular; Laterality: Left; DIALYSIS FISTULA CREATION N/A 04/08/2014 Procedure: DIALYSIS CATHETER - INSERTION; Surgeon: Rik Simon MD; Location: [facility] OR ; Service: Vascular; Laterality: N/A; tunneled [...] 2.29)* * Growth percentiles are based on [facility] 2-20 Years data. Current Height: Ht [...] 17. The mitral valve is normal. 18. Axqp-um-ydtfeelq eccentric mitral regurgitation is present. 19. Severe [...] visualized 27. No clot visualized Previous echocardiogram ([facility] 01/20/2015) report reviewed today: Summary: 1. End-stage [...] suspec wilmer pneumonia. She was transferred from [facility] ED to [facility] ED for worsening right pleu [...] Date of Service: 05/27/18 1412 Status: Addendum Embossing Press Operator Molded Goods: Nicole Villasenor MD (Physician) Related Notes: Original Note by Nicole Villasenor MD (Physician) filed at 05/27 1433 [facility] Service: PULMONOLOGY Initial Consult Note Date of [...] She was brought to the ED in [facility] and was transferred here. She reports [...] MD; Location: [facility] [place]; Service: Vascular; Laterality: Left; DECLOT GRAFT Left 03/07/2014 Procedure: GRAFT - DECLOT; Surgeon: Rik Simon MD; Location: [facility] MAIN OR; Service: Vas cular; Laterality: Left; DIALYSIS FISTULA CREATION N/A 04/08/2014 Procedure: DIALYSIS CATHETER - INSERTION; Surgeon: Rik Simon MD; Location: [facility] MAIN OR ; Service: Vascular; [...] Results: No results found for: FEV1, FVC, SKT4XTF, TLC, DLCO Xr Chest 2 View Result [...] 17. The mitral valve is normal. 18. Fmko-wz-sghyd ate eccentric mitral regurgitation is present. 19. [...] Procedure Component Value Units Date/Time Respiratory Filmarray [[id number]] (Abnormal) Collected: 05/26/181805 Specimen: Nasopharynx/Oropharynx Updated: 05/26/182141 [...] performed by Molecular Methodology MRSA by PCR [[id number]] Collected: 05/26/181805 Specimen: Nasopharyngeal from Nares(Nose) Updated: 05/26/182025 SOURCE NARES(NOSE) MRSA PCR NEGATIVE Culture, Body Fluid [[id number]] Collected: 05/26/18 1412 Specimen: Body Fluid from Pleural Fluid Updated: 05/26/18 1811 Albumin, Body Fluid [[id number]] Collected: 05/26/18 141 Specimen: Body Fluid from Lung, Right Lower Lobe Updated: 05/26/18 1729 FLUID ALBUMIN 2.3 g/dL Total Protein, Body Fluid [[id number]] Collected: 05/26/18 141 Specimen: Body Fluid from Lung, Right Lower Lobe Updated: 05/26/18 1729 FLUID TOTAL PROTEIN 4.2 g/dL FLUID TP SOURCE PLEURAL FLUID Cell count, Body Fluid [[id number]] Collected: 05/26/18 141 Specimen: Body Fluid from Lung, Right Lower Lobe Updated: 05/26/18 1708 FLUID TYPE PLEURAL FLUID COLOR SAMMIE APPEARANCE CLOUDY RBC'S 3,000 /mm3 TOTAL NUCLEATED CELLS 253 /mm3 NEUTROPHILS 22 % LYMPHOCYTES 8 % MONOCYTES/MACROPHAGES 65 % Mesothelial Cells 5 % CELLS COUNTED 100 Culture, Body Fluid [[id number]] Collected: 05/26/18 1513 Specimen: Other from Ascites Fluid Updated: 05/26/18 1631 Specimen Description ASCITES FLUID GRAM STAIN STAIN PERFORMED ON CYTOSPIN GRAM STAIN WBC'S SEEN GRAM STAIN NO EPITHELIAL CELLS SEEN GRAM STAIN NO ORGANISMS SEEN CULTURE PENDING pH, Body Fluid [[id number]] Collected: 05/26/18 141 Specimen: Body Fluid from [...] call if there are any additional questions. Nicole Villasenor MD 05/27/2018 koum, F getachew Mckeon MD - 05/27/2018 11:54 AM PDTFormatting of this note might be different from the origi nal. Consults by Marnie Anguiano MD at 05/27/18 8804 Author: Marnie Anguiano MD Service: Nephrology Author Type: Physician Filed: 05/27/18 3739 Date of Service: 05/27/18 4966 Status: Signed Embossing Press Operator Molded Goods: Marnie Anguiano MD (Physician) Consult Orders: 1. Consult to Nephrology [[id number]] ordered by Mayco Rizvi MD at 05/26/18 1923 Hospital Problem List: Active Problems: ESRD on [...] put on "an antibiotic" for pneumonia at [facility] ED. Was throwing up & could not [...] FUNCTION: Minimal RKF There is no acute MOBILE HOME LABORER indication, plan for tomorrow AM No IVF [...] closely & frequently ELECTROLYTES: abnormal. No acute MOBILE HOME LABORER indication; plan it for AM Sodium: ok [...] from the original. ED Notes by Luis Ayoub RN at 05/26/18 1415 Author: Luis Ayoub RN Service: Emergency Department Author Type: Registered Nurse Filed: 05/26/18 1415 Date of Service: 05/26/18 141 Status: Signed Embossing Press Operator Molded Goods: Luis Ayoub RN (Registered Nurse) Dr. Glass at bedside with tech for paracentesis and thoracentesis. Luis Ayoub RN 05/26/18 1415 onver arturo Transaction, Provider Unknown - 05/26/2018 1:04 PM PDT ED Notes by Luis Ayoub RN at 05/26/18 1304 Author: Luis Ayoub RN Service: Emergency Department Author Type: Registered Nurse Filed: 05/26/18 1304 Date of Service: 05/26/18 1304 Status: Signed Embossing Press Operator Molded Goods: Luis Ayoub RN (Registered Nurse) Dr. Glass at bedside. Luis Ayoub RN 05/26/18 1304 rabtr Aneudy muhammad MD - 05/26/2018 12:01 PM PDT ED Provider Notes by Aneudy Glass MD at 05/26/18 1201 Author: Aneudy Glass MD Service: -Emergency Author Type: Physician Filed: 05/26/18 1623 Date of Service: 05/26/18 1201 Status: Signed Embossing Press Operator Molded Goods: Aneudy Glass MD (Physician) Procedure Orders: 1. Thoracentesis [[id number]] ordered by Aneudy Glass MD at 05/26/18 1323 2. Paracentesis [[id number]] ordered by Aneudy Glass MD at 05/26/18 1323 [facility] Department of Emergency Medicine Pertinent History and [...] with Shortness of Breath Referral Transfer from [facility] 12:01 PM The patient presents to ED with complaints of shortness of breath Location: Respiratory Quality: Increasingly worsening Severity: Moderate Context: Patient was transferred to this facility from [facility] ED, where she was seen earlier today for similar symptoms. EMS states the patient was discharged from [facility] yesterday for right pleural effusion. She began to have nausea and emesis today, with wors ening shortness of breath, which is the reason she returned to [facility] ED. 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 MAIN OR; Service: Vascula r; Laterality: Left; cephalic AV FISTULA REPAIR Left 03/07/2014 Procedure: AV FISTULA - GRAFT REPAIR/REVISION; Surgeon: Rik Simon MD; Location: [facility] IN OR; Service: Vascular; Laterality: Left; DECLOT GRAFT Left 03/07/2014 Procedure: GRAFT - DECLOT; Surgeon: Rik Simon MD; Location: [facility] MAIN OR; Service: Vas cular; Laterality: Left; DIALYSIS FISTULA CREATION N/A 04/08/2014 Procedure: DIALYSIS CATHETER - INSERTION; Surgeon: Rik Simon MD; Location: [facility] MAIN OR ; Service: Vascular; [...] Intravenous Given 05/26/18 1351) bupivacaine-EPINEPHrine (PF) 0.5% -[id number] injection 10 mL (10 mLs Infiltration Given [...] facility had consulted with t he patient's plant production worker Dr. Ibarra who recommended the patient be transferred here to [facility] for further evaluation management, thoracentesis. Blood work [...] complaints. (Using the electronic record system of [facility]) Laboratory Evaluation Results Procedure Component Value Ref Range Date/Time Culture, Body Fluid [[id number]] Collected: 05/26/18 1513 Order Status: Sent Specimen: Other from Ascites Fluid Updated: 05/26/18 1542 Cell count, Body Fluid [[id number]] Collected: 05/26/18 1412 Order Status: Completed Specimen: Body Fluid from Lung, Right Lower Lobe Updated: 1536 FLUID TYPE PLEURAL FLUID COLOR SAMMIE APPEARANCE CLOUDY RBC'S <10,000 /mm3 TOTAL NUCLEATED CELLS 374 /mm3 NEUTROPHILS 22 % LYMPHOCYTES 8 % MONOCYTES/MACROPHAGES 65 % Mesothelial Cells 5 % CELLS COUNTED 100 pH, Body Fluid [[id number]] Collected: 05/26/181411 Order Status: Completed Specimen: Body Fluid from Lung, Right Lower Lobe Updated: 1508 FLUID PH 7.45 Culture, Body Fluid [[id number]] Collected: 05/26/181411 Order Status: Sent Specimen: Body Fluid from Lung, Right Lower Lobe Updated: 05/26/18 1501 Albumin, Body Fluid [[id number]] Collected: 05/26/181411 Order Status: Sent Specimen: Body Fluid from Lung, Right Lower Lobe Updated: 05/26/18 1500 Total Protein, Body Fluid [[id number]] Collected: 05/26/181411 Order Status: Sent Specimen: Body Fluid from Lung, Right Lower Lobe Updated: 05/26/18 1500 Procalcitonin [[id number]] (Abnormal) Collected: 05/26/18 1214 Order Status: Completed Updated: 05/26/18 1330 PROCALCITONIN 0.56 (H) <0.5 ng/mL Cardiac Panel [[id number]] (Abnormal) Collected: 05/26/18 1214 Order Status: Completed [...] ng/mL CK-MB Index 2.7 Brain natriuretic peptide [[id number]] (Abnormal) Collected: 05/26/18 1214 Order Status: Completed [...] recognition system. The possibility of "sound alike" pharmacist per diem errors, and additions or deletions may occur. [...] discussed: Bleeding, bowel perforation, infection and pain [place] protocol: Imaging studies available: yes Patient identity [...] midscapular line Intercostal space: 4th Puncture method: Nfob-vxq-imviri catheter Ultrasound guidance: yes Catheter size: 8 [...] by Maria M Verdugo RN at 05/26/18 1696 Author: Maria M Verdugo RN Service: (none) Author Type: Registered Nurse Filed: 05/26/181156 Date of Service: 05/26/181156 Status: Signed Embossing Press Operator Molded Goods: Maria M Verdugo RN (Registered Nurse) Bed: 11 Expected date: Expected time: Means of arrival: Comments: [facility] Maria M Verdugo RN 05/26/18 4842 onver arturo Transaction, Provider Unknown - 05/26/2018 10:40 AM PDT ED Notes by Maria M Verdugo RN at 05/26/18 1040 Author: Maria M Verdugo RN Service: (none) Author Type: Registered Nurse Filed: 05/26/18 1052 Date of Service: 05/26/18 1040 Status: Addendum Embossing Press Operator Molded Goods: Maria M Verdugo RN (Registered Nurse) Related Notes: Original Note by Maria M Verdugo RN (Registered Nurse) filed at 05/26/[address] [facility] ER. Patient is a 23yo female [...] Date of Service: 06/01/18 1030 Status: Signed Embossing Press Operator Molded Goods: Autumn Moy RN (Registered Nurse) Problem: Pain [...] 06/01/1834 Date of Service: 06/01/1834 Status: Signed Embossing Press Operator Molded Goods: Aury Eldridge RN (Registered Nurse) Problem: Pain [...] Care by Romelia Cooley RN at 05/31/18 820 Author: Romelia Cooley RN Service: (none) Author Type: Registered Nurse Filed: 05/31/18 347 Date of Service: 05/31/181549 Status: Signed Embossing Press Operator Molded Goods: Romelia Cooley RN (Registered Nurse) Problem: Pain [...] 05/30/182208 Date of Service: 05/30/182208 Status: Signed Embossing Press Operator Molded Goods: Nandini Robertson RN (Registered Nurse) Problem: Safety [...] 05/30/181725 Date of Service: 05/30/181725 Status: Signed Embossing Press Operator Molded Goods: Kyra Amador RN (Registered Nurse) Problem: Pain [...] 05/29/181958 Date of Service: 05/29/181958 Status: Signed Embossing Press Operator Molded Goods: Nandini Robertson RN (Registered Nurse) Problem: Safety [...] from the original. Plan of Care by Flaco Can RN at 05/29/181139 Author: Flaco Can RN Service: (none) Author Type: Registered Nurse Filed: 05/29/181139 Date of Service: 05/29/181139 Status: Signed Embossing Press Operator Molded Goods: Flaco Can RN (Registered Nurse) Problem: Safety [...] 05/28/182119 Date of Service: 05/28/182119 Status: Signed Embossing Press Operator Molded Goods: Vernell Weston RN (Registered Nurse) Problem: Pain [...] 05/28/181930 Date of Service: 05/28/181930 Status: Signed Embossing Press Operator Molded Goods: Saundra Hartley RN (Registered Nurse) Problem: Safety [...] 05/27/182232 Date of Service: 05/27/182232 Status: Signed Embossing Press Operator Molded Goods: Timothy Butler RN (Registered Nurse) Problem: Pain [...] 05/27/181757 Date of Service: 05/27/181757 Status: Signed Embossing Press Operator Molded Goods: Saundra Hartley RN (Registered Nurse) Problem: Safety [...] 05/26/182003 Date of Service: 05/26/182003 Status: Signed Embossing Press Operator Molded Goods: Vernell Weston RN (Registered Nurse) Problem: Pain [...] 05/26/181855 Date of Service: 05/26/181855 Status: Signed Embossing Press Operator Molded Goods: Saundra Hartley RN (Registered Nurse) Problem: Pain [...] 05/26/181655 Date of Service: 05/26/181655 Status: Signed Embossing Press Operator Molded Goods: Irish Sierra RPH (Pharmacist) Rx Admission Medication History Note I have reviewed the medication history for appropriate doses obtained by: Tumbler Dyeing Machine Operator . After reviewing the home medication list : I agree with the home medication list. - Removed Sensipar as patient received Parsabiv at dialysis as alternative therapy - Removed Renvela as patient is on Velphoro instead - Agree with addition of losartan and citalopram Please Review and Order Home Medications as necessary. Thanks Irish Sierra, KatieD, [facility] >> Nicole Victoria RPH-S 05/26/2018 16:43 Rx Medication History Internal Controls Analyst Note Patients Preferred Pharmacy has been updated in EPIC: yes [id number] - [place], [place] - [address] [place] [address] Patients Allergies have been updated and marked [...] list include: Added: Citalopram Parsabiv Losartan Velphoro [place] Zofran Doxycycline Flagged: Cinacalcet- patient says she receives Parsabiv at dialysis instead Renvela- patient says she takes Velphoro instead Reliability of information obtained: RELIABLE Additional Comments: N/A Medication history has been completed: *Awaiting Pharmacist Final Review* Nicole Victoria, [facility] 05/26/2018 4:39 PM docume nted in this [...] | | | | | | at [facility], [address] | | | | | [address], | | | | | | [place] [address] | | | | | |Testing performed at [facility], [address] [place] [address] | | | | | | | [...] | | | | | performed at [facility], [address] | | | | | | [address], | | | | | | [place] [address] | | | | + + + [...] | | | | | | at [facility], [address] | | | | | | [facility], | | | | | | [place] [address] | | | | | |Testing performed at [facility], [address] [place] [address] | | | | | | | [...] | | | | | | MDRD IDDE traceable | | | | | | equation.Testing | | | | | | performed at [facility], [address] | | | | | | [facility], | | | | | | [place] [address] | | | | + + + [...] | | | | | | at [facility], [address] | | | | | | [facility], | | | | | | [place] [address] | | | | | |Testing performed at [facility], [address] [facility], [place] [address] | | | | | | | [...] | | | | | performed at [facility], [address] | | | | | | [facility], | | | | | | [place] [address] | | | | + + + [...] | EXTERNAL LAB | | not a hims coder validated sample type for this method. No reference | | | ranges have been established. Testing performed at [facility], [address] | | | [place] [address] | | + + + + +---------+ [...] EXTERNAL LAB | | is not a hims coder validated sample type for this method. No | | | reference ranges have been established. Testing performed at [facility], | | | [address] [place] [place] [address] | | + + + + +---------+ [...] | | space is punctured with an 8-Scottish thoracentesis catheter. Fluid is | | | [...] the pleural space is punctured with an 8-Scottish | | thoracentesis catheter. Fluid is aspirated [...] | | | Patient | performed at [facility];[address] | | LAB | | | | [address];[place] | | | | | | [address] | | | | + + + [...] | | | | | performed at [facility] | | | | | | [facility];[place] | | | | | | [address] | | | | + + + [...] | | | | | | at [facility], [address] | | | | | | [address] [employer], | | | | | | [place] [address] | | | | | |Testing performed at [facility], [address] [facility], [place] [address] | | | | | | | [...] | | | | | | MDRD IDDE traceable | | | | | | equation.Testing | | | | | | performed at [facility], [address] | | | | | | [facility], | | | | | | [place] [address] | | | | + + + [...] at | | | | | | [facility];[address] [place] [address] | | | | | | [facility];[place] [address] | | | | + + + [...] at | | | | | | [facility], [address] | | | | | | [place] | | | | | | [address] | | | | + + + [...] | | | | | performed at [facility], [address] | | | | | | [facility], | | | | | | [place] [address] | | | | + + + [...] at [facility];[address] | | | | | | [facility];[place], [place] | | | | | | [address] | | | | + + + [...] + + | Historically converted procedure from [facility] Epic environment | EXTERNAL LAB | + [...] at | | | | | | [facility];[address] [place] [address] | | | | | | [facility];[place] [address] | | | | + + + [...] EXTERNAL | | | | performed at [facility], [address] | | LAB | | | | [address], | | | | | | [place] [address] | | | | + + + [...] | | | | | | at [facility], [address] | | | | | | [employer], | | | | | | [place] [address] | | | | | |Testing performed at [facility], [address] [place] [address] | | | | | | | [...] EXTERNAL | | | | performed at [facility], [address] | | LAB | | | | [address], | | | | | | [place] [address] | | | | + + + [...] | | | QUALITATIVE | performed at [facility], [address] | | LAB | | | | [address] [facility], | | | | | | [place] [address] | | | | + + + [...] EXTERNAL | | | | performed at [facility], [address] | uIU/mL | LAB | | | | [address], | | | | | | [place] [address] | | | | + + + [...] | | | | | performed at [facility], [address] | | | | | | [facility], | | | | | | [place] [address] | | | | + + + [...] | | | preparation was performed by [employer], [address] | | | [place] [address] (Certified Juvenile Probation Officer: Matt Claudio D.O.; | | | CLIA#: [id number]). Professional interpretation was performed by | | | [employer], [facility], [facility] [address] | | | [place] [address] (Certified Juvenile Probation Officer: Daniel Larson M.D.; | | | CLIA#: [id number]).6 Diagnostician: Marie BROOKS ([facility]) | | | Brush Loader And Handle Attacher Diagnostician: Anahy Da Silva MD Pathologist | [...] at | | | | | | [facility], [address] [facility] | | | | | | [place] | | | | | | [address] | | | | + + + [...] valve is normal. 18. | | | Euqd-jb-hinpzmmz eccentric mitral regurgitation is present. 19. | [...] valve is normal. 18. | | | Xued-ox-egoondfz eccentric mitral regurgitation is present. 19. | [...] is | | | normal. Mitral Valve: Nwlh-fr-kavqnlqg eccentric mitral regurgitation | | | is [...] TR Vmax: 2.74 m/s | | | Nuclear Weapons Specialist: MW Authenticated by: Robel Yusuf MD Report [...] aortic stenosis.17. The mitral valve is normal.18. Rpli-tj-rhwgmmir | | eccentric mitral regurgitation is present.19. [...] | | arch are normal.26. No mass hioebghghc49. No clot visualized FINDINGS--------ECG | | rhythm: [...] mitral valve is normal.Mitral Valve: | | Eamh-ka-udonmgjn eccentric mitral regurgitation is present.Tricuspid Valve: Severe [...] mlLAESV Index (A-L): 30.43 ml/m2LAAs A2C: 20.97 cf1PUWWV | | A-L A2C: 65.71 mlLALs A2C: 5.68 cmLAAs A4C: 19.94 tb0LWUVX A-L A4C: 60.20 mlLALs | | A4C: 5.60 cmTAPSE: 1.58 cmHR: 79.62 BPMAV maxP.06 mmHgAV meanP.71 | | mmHgAV Vmax: 1.23 m/Elizabeth Vmean: 0.92 m/Elizabeth VTI: 20.07 cmAVA Vmax: 1.74 cm2AVA | | (VTI): 1.93 up2AZNH Vmax: 0.00 cm2/m2AVAI (VTI): 0.00 cm2/m2LVOT maxP.22 [...] maxP.08 | | mmHgTR Vmax: 2.74 m/s Nuclear Weapons Specialist: MWSydneehenticated by: Robel Yusuf MDRst. vincent's medical center | | Date/Time: 05-27-2018 13:59:57 IMPRESSION: 1. [...] The mitral valve is | | normal.18. Tihn-re-ltvhveuo eccentric mitral regurgitation is present.19. Severe | [...] and aortic arch are normal.26. No mass ntrytsrnwi62. No clot visualized | |LVPWd: 1.27 cm [...] |TR Vmax: 2.74 m/s | | | |Nuclear Weapons Specialist: MW | |Authenticated by: Robel Yusuf MD [...] The mitral valve is normal. | |18. Betg-et-onuyjooi eccentric mitral regurgitation is present. | |19. [...] | | LAB | | | | [facility];[address] | | [address];[place] [address] | | | | + + + [...] EXTERNAL | | | | performed at [facility], [address] | | LAB | | | | [address], | | | | | | [place] [address] | | | | + + + [...] | | LAB | | | | [facility];[address] | | | | | | [address];[place] [address] | | | | + + + [...] EXTERNAL | | | | performed at [facility], [address] | | LAB | | | | [address], | | | | | | [place] [address] | | | | + + + [...] | | | | | performed at [facility], [address] | | | | | | [facility], | | | | | | [place] [address] | | | | + + + [...] Methodology | | | Testing performed at [facility], [address] [place], [place] | | | [address] | | + + + + +---------+ [...] NEGATIVE Testing | | | performed at [facility];[address] [place] [address];[place] [address] | | + + + + +---------+ [...] | | | | | | at [facility];[address] [place] [address] | | | | | | [facility];[place] [address] | | | | + + + [...] AT 1702: | | | PREVIOUSLY REPORTED <[id number] TOTAL NUCLEATED CELLS | | | 253 CORRECTED RESULTS CALLED TO DR. GLASS IN ED AT | | | 1705 BY LGJ CORRECTED ON 05/26 AT 1702: PREVIOUSLY REPORTED 374 | | | NEUTROPHILS 22 | | | LYMPHOCYTES 8 | | | MONOCYTES/MACROPHAGES 65 Mesothelial | | | Cells 5 CELLS COUNTED | | | 100 Testing performed at [facility] | | | [facility];[place] [address] | | + + + + +---------+ [...] | EXTERNAL LAB | | not a hims coder validated sample type for this method. No reference | | | ranges have been established. Testing performed at [facility], [address] | | | [place] [address] FLUID TP SOURCE | | | PLEURAL FLUID Testing performed at [facility];[address] | | | [facility];[place] [address] | | + + + + +---------+ [...] | EXTERNAL LAB | | not a hims coder validated sample type for this method. No | | | reference ranges have been established. Testing performed at [facility], | | | [address] [place] [address] | | + + + + +---------+ [...] EXTERNAL LAB | | Testing performed at [facility];[address] [place] [address];[place] [address] | | + + + + +---------+ [...] | | | | | | at [facility];[address] [place] [address] | | | | | | [facility];[place] [address] | | | | + + + [...] | | | | | | at [facility];[address] [place] [address] | | | | | | [facility];[place] [address] | | | | + + + [...] | | LAB | | | | [facility];[address] | | | | | | [facility];[place] [address] | | | | + + + [...]
--- OUTSIDE RECORDS SUMMARY | ~2019-12-21 | XMS | Encounter Summary ---
Demographics + + + | Address | [address] | | | [place] [address] | + + + | Home Phone [...] | | | | | [place] [address] | | + + + + + | Thania Mallory | ECON | [address] | | | | | [place] [address] | | + + + + + | Deidra Weldon | ECON | [address] | | | | | [place] | | | | | [address] | | + + + + + Care Team Providers + +------+ + | Care Mortgage Funder Name | Role | Phone | + [...] on | | | | [address] [place], | [place], [place] | psychosocial goals | | | | [place] [address] | [address] | related to listing | | | | [phone] | | status) | +--------+ + + [...] on May 12, 2015 while at her [facility] renal clinic appt at [facility]. Also present in clinic visit today is [...] need for funds to support stay in [facility] after discharge. Current Living Situation: Draa reports she moved out of her mother's home in February 2015 (just weeks after our pr evious meeting when this was reported to be a stable location for her) and is now living wit h her friend, Kiki, present today, who is "like a second mom to me." Kiki lives i n [place], [place] and has a five year old daughter at home. Pt's friend named Yokasta (19) is al so living there. When asked about the living arrangements, pt and Kiki state they "are moving into new place soon which has a shed in the backyard" where pt and Yokasta will live on ce they relocate. 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 Kiki says she wants to try to become Dara's donor and has called and rec eived the packet of information; next steps were reviewed. Dara has just got a new puppy named "Devaughn" she adores who is a pit-bull/lab mix and is 9 weeks old today. She wants the dog to be approved as a painting machine operator dog due to her health c ondition; [...] list pe r policy of CTS at [facility]. Parents' Employment: Patient reports no changes she is aware of in her parents employment since our last convers ation. Pt's mom Thania is employed full-time at a long-term job. Her father Clayton is worki ng too. She has some contact, by phone, with him and stepmother Deidra. They live near [place], [place] but she does not see them much. Financial/Insurance Issues: Patient receives SSI, may be able to request an increase if she pays rent, maximum of $733. She remains thoroughly covered as dual-eligible under Medicare (ESRD) and Medicaid (SSI). She has low OOP costs expected for direct medical care and prescriptions; she has some [employer] reimbursement coverage for medical travel/stay. No other [...] ospital care stay in the area around [facility] for the month. They are aware partial funds are re imbursed by [facility]: Lodging $40 per night, $12 per day food, mileage .25 cents per mile (curre nt rates) but can often take time to obtain from [employer]. Patient gives a balance of $250.00 in [...] her dialysis physician, Dr. Ibarra and her rodent control worker, Tri. Patient reports she is taking [...] will stay in a local hotel, unlikely [employer] but this can be evaluated a t the time of transplant if an option exists. Family will use funds raised plus the [facility] tio mbursement. Family aware of the demanding [...] p rogress in 3 months. Mariza Hsu, MARKET RESEARCHER, WOOD TOOL MAKER Pediatric Renal Transplant Motion Study Engineer pg. #[phone] documented in this en counter Plan of [...] [facility] | | | | | | [address] | | | | | | [phone] | | | | | | | | +--------+ + + + + documented as of this encounter Visit Diagnoses Not on filedocumented in this encounter
--- OUTSIDE RECORDS SUMMARY | ~2019-12-21 | XMS | Encounter Summary ---
Demographics + + + | Address | [address] | | | [place] [address] | + + + | Home Phone [...] Author | [facility] | | | and [place] | + + + | Organization | [facility] | | [...] Team Providers + +------+ + | Care Wet Machine Operator Name | Role | Phone | + +------+ + PCP | Unavailable | + +------+ + Reason for Visit + +--------+ + | Reason | Onset | Comments | | | Date | | + +--------+ + | Appointment | 02/28/ | Post Op | | | 2014 | | + +--------+ + Encounter Details +--------+ + + + + | Date | Type | Department | Care Team | Description | +--------+ + + + + | 02/28/ | Telephone | [facility] | Blake Chavarria | Appointment (Post | | 2013 | | SURGERY [address] | MD Antonieta, FACS [address] | [address]) | | | | [address] [place] [place], [place] | [facility] | | | | | [address] | [place] [address] | | | | | [phone] | [phone] | | | | | | | [...] this encounter Miscellaneous Notes Telephone Encounter - Anitra Ramos - 02/28/2014 1:47 PM PSTPatient's mother called . She is needing to make a post op appointment for next week. The schedule is full. Please advise on which patient can be moved or another alternative. Patient's mother was told vilma t someone would contact them Monday to schedule. Thank you. documented in this encounter Plan of Treatment Not on filedocumented as of this encounter Visit Diagnoses Not on filedocumented in this encounter"
--- OUTSIDE RECORDS SUMMARY | ~2019-12-21 | XMS | Encounter Summary ---
Demographics + + + | Address | [address] | | | [place] [address] | + + + | Home Phone [...] Providers + +------+ + | Care Assistant Education Director Name | Role | Phone | + +------+ + PCP | Unavailable | + +------+ + Reason for Visit + +--------+ + | Reason | Onset | Comments | | | Date | | + +--------+ + | Medication Refill | 03/15/ | | | | 2017 | | [...] [address] | | | | | [place], [place] | [place] [address] | | | | | [address] | [phone] | | | | | [phone] | | | +--------+--------+ + + + [...]
--- OUTSIDE RECORDS SUMMARY | ~2019-12-21 | XMS | Encounter Summary ---
Demographics + + + | Address | [address] | | | [place] [address] | + + + | Home Phone [...] | | | | | [place] [address] | | + + + + + | Thania Mallory | ECON | [address] | | | | | [place] [address] | | + + + + + | Deidra Weldon | ECON | [address] | | | | | [place] | | | | | [address] | | + + + + + Care Team Providers + +------+ + | Care Assistant Production Manager Name | Role | Phone [...] | | | | | [address] [place], | [place], [place] | | | | | [place] [address] | [address] | | | | | [phone] | | | +--------+ + + + [...] Denise | | | | | | [place], [place] | | | | | | [address] | | | | | | [phone] | | | | | | | | +--------+ + + + + documented as of this encounter Visit Diagnoses Not on filedocumented in this encounter"
--- OUTSIDE RECORDS SUMMARY | ~2019-12-21 | XMS | Encounter Summary ---
Demographics + + + | Address | [address] | | | [place] [address] | + + + | Home Phone [...] | Author | [facility] | | | and [place] | + + + | Organization | [facility] | | [...] Team Providers + +------+ + | Care Grab Operator Name | Role | Phone | [...] + + | 07/29/ | Refill | [facility] | Carolina Mahmood DO | Medication Refill | | 2019 | | CARDIOLOGY [facility]ER[facility]D | [address] | | | | | [address] | [place], [place] | | | | | [place], [place] | [address] | | | | | [address] | | | | | | [phone] | | | +--------+--------+ + + + [...]
--- OUTSIDE RECORDS SUMMARY | ~2019-12-21 | XMS | Encounter Summary ---
Demographics + + + | Address | [address] | | | [place] [address] | + + + | Home Phone [...] | | | | | [place] [address] | | + + + + + | Thania Mallory | ECON | [address] | | | | | [place] [address] | | + + + + + | Deidra Weldon | ECON | [address] | | | | | [place] | | | | | [address] | | + + + + + Care Team Providers + +------+ + | Care Lyric Writer Name | Role | Phone | [...] | | [address] | [facility] | | | | | [facility], | [place], [place] | | | | | [place] [address] | [address] | | | | | [phone] | | | +--------+ + + + [...] Denise | | | | | | [place], [place] | | | | | | [address] | | | | | | [phone] | | | | | | | | +--------+ + + + + documented as of this encounter Visit Diagnoses Not on filedocumented in this encounter"
--- OUTSIDE RECORDS SUMMARY | ~2019-12-21 | XMS | Encounter Summary ---
Demographics + + + | Address | [address] | | | [place] [address] | + + + | Home Phone [...] Providers + +------+ + | Care Manager Ob Name | Role | Phone | + [...] [address] | | | | | [place], [place] | [place] [address] | | | | | [address] | [phone] | | | | | [phone] | | | +--------+--------+ + + + [...]
--- OUTSIDE RECORDS SUMMARY | ~2019-12-21 | XMS | Encounter Summary ---
Demographics + + + | Address | [address] | | | [place] [address] | + + + | Home Phone [...] Team Providers + +------+ + | Care Frame Operator Name | Role | Phone | [...] [address] | | | | | [place], [place] | [place] [address] | | | | | [address] | [phone] | | | | | [phone] | | | +--------+ + + + [...]
--- OUTSIDE RECORDS SUMMARY | ~2019-12-21 | XMS | Encounter Summary ---
Demographics + + + | Address | [address] | | | [place] [address] | + + + | Home Phone [...] | | | | | [place] [address] | | + + + + + | Thania Mallory | ECON | [address] | | | | | [place] [address] | | + + + + + | Deidra Weldon | ECON | [address] | | | | | [place] | | | | | [address] | | + + + + + Care Team Providers + +------+ + | Care Resource Paraprofessional Name | Role | Phone | + +------+ + | Shahid Camargo MD | PCP | | + +------+ + Encounter Details +--------+ + + + + | Date | Type | Department | Care Team | Description | +--------+ + + + + | 12/19/ | Document-Sc | UNKNOWN DEPARTMENT | Unknown . | | | 2012 | anned | [address] | | | | | | [facility] | | | | | | [place], [place] | | | | | | [address] | | | +--------+ + + + [...] Denise | | | | | | [place] | | | | | | [address] | | | | | | [phone] | | | | | | | | +--------+ + + + + documented as of this encounter Visit Diagnoses Not on filedocumented in this encounter"
--- OUTSIDE RECORDS SUMMARY | ~2019-12-21 | XMS | Encounter Summary ---
Demographics + + + | Address | [address] | | | [place] [address] | + + + | Home Phone [...] | [facility] | | | and [place] | + + + | Organization | [facility] | | | [...] Providers + +------+ + | Care Concrete Handler Name | Role | Phone | [...] [facility]) | [address] | [address] | | | | | Anemia in | [place], [place] | [place], | | | | | ESRD | [address] | [place] [address] | | | | | (end-stage | Phone: | Phone: | | | | | renal | [phone] | [phone] | | | | | disease) | Fax: | Fax: | | | | | ([facility]) | [phone] | [phone] | | | | | Procedures | [...] | 10/16/ | Off-Site | [facility] [place] | Jorje Camp | ESRD (end stage | | 2018 | Visit | NEPHROLOGY [address] | M, DO [address] | renal disease) ([facility]) | | | | [address] | [address] [place] | (Primary Dx) | | | | [place], [place] | [place] [address] | | | | | [address] | [phone] | | | | | [phone] | | | +--------+ + + + [...] week from records in [facility], per [facility] Nurse Man agerElisabeth RN. Her BP, PO4, and PTH are consisently high. 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 Outpatient Prescriptions Marked as Taking for the 10/16/17 encounter (Off-Site Visit) with Camille Camp, DO [...] x per day. Has been counseled in [facility] regarding risks of calciphylaxis. 4. 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 5. Will recheck her in 2 weeks. : Jamil Alonso MD, PhD documented in thi s encounter Plan of Treatment Not on filedocumented as of this encounter Visit Diagnoses + + | Diagnosis | + + | ESRD (end stage renal disease) (HCC) - Primary End stage renal disease | + + documented in this encounter"
--- OUTSIDE RECORDS SUMMARY | ~2019-12-21 | XMS | Encounter Summary ---
Demographics + + + | Address | [address] | | | [place] [address] | + + + | Home Phone [...] | | | | | [place] [address] | | + + + + + | Thania Mallory | ECON | [address] | | | | | [place] [address] | | + + + + + | Deidra Weldon | ECON | [address] | | | | | [place] | | | | | [address] | | + + + + + Care Team Providers + +------+ + | Care Compliance Intern Name | Role | Phone | [...] | | [address] | [facility] | | | | | [place], | [place], [place] | | | | | [place] [address] | [address] | | | | | [phone] | | | +--------+ + + + [...] u ntil testing began given her size. fishery division chief agreed to discuss this further with pt [...] [place] | | | | | | [address] | | | | | | [phone] | | | | | | | | +--------+ + + + + documented as of this encounter Visit Diagnoses Not on filedocumented in this encounter"
--- OUTSIDE RECORDS SUMMARY | ~2019-12-21 | XMS | Encounter Summary ---
Demographics + + + | Address | [address] | | | [place] [address] | + + + | Home Phone [...] Team Providers + +------+ + | Care Surveillance Observer Name | Role | Phone | [...] | Nephrology | Diagnoses | Rufino | [place], | | | | | ESRD (end | Sudhakar D, | Jorje Obrien DO | | | | | stage renal | [address] | [address] | | | | | disease) | [address] | [address] | | | | | ([facility]) | [address] | [address] | | | | | Anemia in | [place], [place] | [place], | | | | | ESRD | [address] | [place] [address] | | | | | (end-stage | Phone: | Phone: | | | | | renal | [phone] | [phone] | | | | | disease) | Fax: | Fax: | | | | | ([facility]) | [phone] | [phone] | | | | | Procedures | [...] DO [address] | renal disease) ([facility]) | | | | [address] | [address] [place] | (Primary Dx) | | | | [place], [place] | [place] [address] | | | | | [address] | [phone] | | | | | [phone] | | | +--------+ + + + [...] uding the charge nurse, staff nurses, PCT's, line out worker, dietitian myself she fails to heed [...] today in Plan: 1. Will continue to licensed professional counselor her about her high risk for cardiovascular morbidity and compl ications given her lack of full compliance with her treatment. 2. The renal RN LICENSED PRACTICAL has been attempting to reach her. However, as above she continuously spu rs any sound advice. 3. Will recheck her in 2 weeks. : [facility] documented in thi s encounter Plan of Treatment Not on filedocumented as of this encounter Visit Diagnoses + + | Diagnosis | + + | ESRD (end stage renal disease) (HCC) - Primary End stage renal disease | + + documented in this encounter"
--- OUTSIDE RECORDS SUMMARY | ~2019-12-21 | XMS | Encounter Summary ---
Demographics + + + | Address | [address] | | | [place] [address] | + + + | Home Phone [...] | | | | | [place] [address] | | + + + + + | Thania Mallory | ECON | [address] | | | | | [place] [address] | | + + + + + | Deidra Weldon | ECON | [address] | | | | | [place] | | | | | [address] | | + + + + + Care Team Providers + +------+ + | Care Dog Groomer Name | Role | Phone | + +------+ + | Jnoathan Alonso MD | PCP | | + [...] - | | | | [address] [place], | [place], [place] | psychosocial | | | | [place] [address] | [address] | readiness update) | | | | [phone] | | | +--------+ + + + [...] on August 18, 2015 while at her [facility] renal [facility] appt at [facility]. Also present in visit today is [...] ago" into her own one-bedroom apartment in [place], [place]. She is now estranged from her [...] such as [place], who also lives in [place]. Patient has no pets at this time. Jessie remains living in [facility], with her partner and says she has [...] waiting list per policy of CTS at [facility]. Pt told to call ANNALISA hardwood floor installation helper Coordinator onc e she was ready to [...] now paying her own rent to the [facility] of $733. Patient says her rent [...] like to stay in local [facility] but this can be evaluated at the franco e of transplant if an option exists. Family will use (BERRY) funds raised plus the [facility] edgar marroquin. Family aware of the [...] renal transplant team. Appears she should remain tyesah ctive until the above psychosocial issues addressed. [...] to be determined and/or scheduled. Mariza Hsu, FORGING PRESS SETTER UP, BRANCH STORE MANAGER Pediatric Renal Transplant Food Quality Tester pg. #[phone] documented in this en counter Plan of [...] [facility] | | | | | | [address] | | | | | | [phone] | | | | | | | | +--------+ + + + + documented as of this encounter Visit Diagnoses Not on filedocumented in this encounter
--- OUTSIDE RECORDS SUMMARY | ~2019-12-21 | XMS | Encounter Summary ---
Demographics + + + | Address | [address] | | | [place] [address] | + + + | Home Phone [...] | Author | [facility] | | | and [place] | + + + | Organization | [facility] | | [...] + +------+ + | Care Research Laboratory Technician Name | Role | Phone [...] [address] [place] | | | | | [place], [place] | [place] [address] | | | | | [address] | [phone] | | | | | [phone] | | | +--------+ + + + [...]
--- OUTSIDE RECORDS SUMMARY | ~2019-12-21 | XMS | Encounter Summary ---
Demographics + + + | Address | [address] | | | [place] [address] | + + + | Home Phone [...] Providers + +------+ + | Care Cdl Bulk Driver Name | Role | Phone | [...] [address] | renal disease) ([facility]) | | | | [address] | [address] [place] | (Primary Dx); | | | | [place], [place] | [place] [address] | Secondary | | | | [address] | [phone] | hyperparathyroidism | | | | [phone] | | ([facility]); | [...]
--- OUTSIDE RECORDS SUMMARY | ~2019-12-21 | XMS | Encounter Summary ---
Demographics + + + | Address | [address] | | | [place] [address] | + + + | Home Phone [...] Providers + +------+ + | Care Regional Safety Manager Name | Role | Phone | + +------+ + PCP | Unavailable | + +------+ + Encounter Details +--------+ + + + + | Date | Type | Department | Care Team | Description | +--------+ + + + + | 08/31/ | Hospital | [facility] | Conversion | ESRD (end stage | | 2016 | Encounter | CENTER CV INTRA OP | Transaction, | renal disease) (HCC) | | | | [address] | Provider Unknown | | | | | [place], [place] | [phone] | | | | | [address] | | | | | | [phone] | Doyle Diaz MD | | | | | | [address] | | | | | | [place], [place] | | | | | | [address] | | | | | | | [...] 09/01/15901 Date of Service: 09/01/15899 Status: Signed Senior Investment Manager: Doyle Diaz MD (Physician) Interventional Radiology H&P [...] List Diagnosis HSP (Henoch Schonlein purpura) ([facility]) ESRD on hemodialysis ([facility]) Review of Systems: Negative except HPI Code Status: Prior Past Medical History: Past Medical History Diagnosis Date HSP (Henoch-Schonlein purpura) nephritis Hypertension Clotted dialysis access ([facility]) 2014 ESRD (end stage renal disease) ([facility]) Anemia Past Surgical History: Past Surgical History Procedure Laterality Date Av fistula placement Renal biopsy Laparoscopic peritoneal dialysis catheter insertion x2 Abdominal surgery Av fistula repair Left 03/07/2014 Procedure: AV FISTULA - GRAFT REPAIR/REVISION; Surgeon: Rik Simon MD; Location: [facility] OR; Service: Vascular; Laterality: Left; Declot graft Left 03/07/2014 Procedure: GRAFT - DECLOT; Surgeon: Rik Simon MD; Location: [facility] OR; Service: Va scular; Laterality: Left; Av fistula placement Left 04/08/2014 Procedure: AV FISTULA; Surgeon: Rik Simon MD; Location: [facility] OR; Service: Vascul ar; Laterality: Left; cephalic Dialysis fistula creation N/A 04/08/2014 Procedure: DIALYSIS CATHETER - INSERTION; Surgeon: Rik Simon MD; Location: [facility] O R; Service: Vascular; Laterality: N/A; tunneled catheter Laparoscopic peritoneal dialysis catheter insertion Right 07/2013 current dialysis access MWF dialysis Superficialization of av fistula Left 06/24/2014 Procedure: AV FISTULA - SUPERFICIALIZATION; Surgeon: Rik Simon MD; Location: [facility] OR; Service: Vascular; Laterality: Left; [...] Date of Service: 09/01/15 1006 Status: Signed Senior Investment Manager: Doyle Diaz MD (Physician) Interventional Radiology Post Procedure Note Patient Name: Dara Weldon Date of : 1995 Pre OP Diagnosis: Difficulty with cannulation assoc. with HD Post OP Diagnosis: Same Procedure: LUE AVF venogram; balloon angioplasty Interventional Radiologist: Doyle Diaz MD Multi Share Program Coordinator: None Anesthesia Type: Moderate sedation Findings: In-stent [...] | 2. IR ANGIOPLASTY AV FISTULA VENOUS INSIDE TECHNICAL SALES REPRESENTATIVE: Doyle Diaz MD | | | CONSENT: [...] | | Over a guidewire, a 4 Bulgarian angled catheter was advanced and | | [...] | ANGIOPLASTY: Over a guidewire, a 6 Bulgarian sheath was advanced | | | and [...] IR ANGIOPLASTY AV | | FISTULA VENOUS INSIDE TECHNICAL SALES REPRESENTATIVE: Doyle Diaz MD CONSENT: The risks, benefits [...] micropuncture needle. Over a guidewire, a 4 Bulgarian angled catheter was | | advanced and [...] appears patent. ANGIOPLASTY:Over a guidewire, a 6 Bulgarian sheath was | | advanced and positioned [...] AM | |Over a guidewire, a 6 Bulgarian sheath was advanced and positioned into the [...] | 2. IR ANGIOPLASTY AV FISTULA VENOUS INSIDE TECHNICAL SALES REPRESENTATIVE: Doyle Diaz MD | | | CONSENT: [...] | | Over a guidewire, a 4 Bulgarian angled catheter was advanced and | | [...] | ANGIOPLASTY: Over a guidewire, a 6 Bulgarian sheath was advanced | | | and [...] IR ANGIOPLASTY AV | | FISTULA VENOUS INSIDE TECHNICAL SALES REPRESENTATIVE: Doyle Diaz MD CONSENT: The risks, benefits [...] micropuncture needle. Over a guidewire, a 4 Bulgarian angled catheter was | | advanced and [...] appears patent. ANGIOPLASTY:Over a guidewire, a 6 Bulgarian sheath was | | advanced and positioned [...] AM | |Over a guidewire, a 6 Bulgarian sheath was advanced and positioned into the [...] | | | performed at [facility];888 | mmol/L | LAB | | | | [address];[place], [place] | | | | | | [address] | | | | + + + [...]
--- OUTSIDE RECORDS SUMMARY | ~2019-12-21 | XMS | Encounter Summary ---
Demographics + + + | Address | [address] | | | [place] [address] | + + + | Home Phone [...] | [facility] | | | and [place] | + + + | Organization | [facility] | | | and [...] Providers + +------+ + | Care Laborer Pole Crew Name | Role | Phone | + [...] [address] [place] | | | | | [place], [place] | [facility] [place] [address] | | | | | [address] | [phone] | | | | | [phone] | | | +--------+ + + + [...] [facility], Lianna Joy [facility] pediatric nephrology at [facility] Renal Cruz splant [facility] on 02/07/14. Daniela Ibarra MD - 01/24/2014 2:48 PM PSTFormatting of this note might be different fr om the original. Comprehensive Dialysis Monthly Note Date of visit: 01/24/2014 Dialysis Clinic: [facility] Mode of dialysis: Hemodialysis Dialysis prescription: MWF, [...] [facility] Priority: High Note Last Updated: 11/22/2013 Due to Henoch-Schonlein purpura. On hemodialysis, started July 2013. Prior, was on peritoneal dialysis, started 2012. Access: R chest catheter. Re-referred to [facility] transplant in Oct 2013 by pediatric acute care unit nurse. Peritonitis, dialysis-associated (HCC) 07/29/2013 Note Last Updated: 07/29/2013 Due to MSSA. Had tunneled infection as well. PD catheter removed in July 2013. On Keflex till 08/01/13. History of Henoch-Schonlein purpura Note Last Updated: 07/29/2013 Diagnosed at age 10[address] Joy, pediatric acute care unit nurse. Anemia in ESRD (end-stage renal disease) [...] [facility] Transplant Team. cc: Lucille Griffin [facility] Dr. Lianna Joy, [facility] Pediatric Nephrology [facility] Renal transplant documented in this encounter [...]
--- OUTSIDE RECORDS SUMMARY | ~2019-12-21 | XMS | Encounter Summary ---
Demographics + + + | Address | [address] | | | [place] [address] | + + + | Home Phone [...] Providers + +------+ + | Care Oil Well Cable Tool Operator Name | Role | Phone | [...] [address] [place] | | | | | [place], [place] | [facility] [place] [address] | | | | | [address] | [phone] | | | | | [phone] | | | +--------+ + + + [...] AM PDTHEMO progress note manually faxed to [facility] [place], e-faxed to Lianna Joy [facility] on 08/04 03/19. Daniela Marquez M D - 07/29/2013 1:57 PM PDT Comprehensive Dialysis Monthly Note Date of visit: 07/29/2013 Dialysis Clinic: [facility] Mode of dialysis: Hemodialysis Dialysis prescription: [...] ESRD (end stage renal disease) ([facility]) Priority: High Note Last Updated: [...] at age 10[address] Joy, machine printer hose. Anemia in ESRD (end-stage renal disease) ([facility]) Secondary hyperparathyroidism ([facility]) Obesity No Known Allergies Outpatient Prescriptions Marked [...] donor. Pt has been referred t o [facility]. 10. Peritonitis, MSSA. On Keflex. cc: [facility] Dr. Lianna Joy, [facility] documented in this encounter Plan [...]
--- OUTSIDE RECORDS SUMMARY | ~2019-12-21 | XMS | Encounter Summary ---
Demographics + + + | Address | [address] | | | [place] [address] | + + + | Home Phone [...] | | | | | [place] [address] | | + + + + + | Thania Mallory | ECON | [address] | | | | | [place] [address] | | + + + + + | Deidra Weldon | ECON | [address] | | | | | [place] | | | | | [address] | | + + + + + Care Team Providers + +------+ + | Care Color Receiver Name | Role | Phone | [...] | Nephrology at | MD Emanuel [address] [facility] | Recommendations | | | | Alexander | Elias Elizondo | | | | | [facility] | [place], [place] | | | | | [address] | [address] | | | | | Alexander | [phone] | | | | | [facility], | | | | | | [address] [place] [address] | | | | | | [place], [place] | | | | | | [address] | | | | | | [phone] | | | +--------+ + + + [...] Denise | | | | | | [place], [place] | | | | | | [address] | | | | | | [phone] | | | | | | | | +--------+ + + + + documented as of this encounter Visit Diagnoses Not on filedocumented in this encounter"
--- OUTSIDE RECORDS SUMMARY | ~2019-12-21 | XMS | Encounter Summary ---
Demographics + + + | Address | [address] | | | [place] [address] | + + + | Home Phone [...] Author | [facility] | | | and [place] | + + + | Organization | [facility] | | | [...] Providers + +------+ + | Care Paper Cone Machine Operator Name | Role | Phone | + +------+ + | Jonathan Alonso MD | PCP | | + +------+ + Reason for Visit +--------+--------+ + | Reason | Onset | Comments | | | Date | | +--------+--------+ + | DME | 11/12/ | parviz sexton [facility] | | | 2019 | | +--------+--------+ + Encounter Details +--------+ + + + + | Date | Type | Department | Care Team | Description | +--------+ + + + + | 11/12/ | Telephone | [facility] | Silvia Rabago | DME (carlie, cmn, | | 2018 | | [address] | ABRIL Hernandez | [facility]) | | | | [place], [place] | | | | | | [address] | | | | | | [phone] | | | +--------+ + + + [...] Telephone Encounter - Silvia Rabago RN - 11/12/2018 1:41 PM PDTReceived CMN for oxy gen from [facility]. Placed in providers box. Will fax back when completed. DOS 11/09/18.Electronical ly signed by Silvia Rabago RN at 11/12/2018 1:41 PM PDTdocumented in this encounter Plan of Treatment Not on filedocumented as of this encounter Visit Diagnoses Not on filedocumented in this encounter"
--- OUTSIDE RECORDS SUMMARY | ~2019-12-21 | XMS | Encounter Summary ---
Demographics + + + | Address | [address] | | | [place] [address] | + + + | Home Phone [...] | | | | | [place] [address] | | + + + + + | Thania Mallory | ECON | [address] | | | | | [place] [address] | | + + + + + | Deidra Weldon | ECON | [address] | | | | | [place] | | | | | [address] | | + + + + + Care Team Providers + +------+ + | Care Social Economist Name | Role | Phone | [...] Shun | | | | | [address] | [facility] | | | | | [place], [place] | [place] [address] | | | | | [address] | [phone] | | | | | | | [...] [place] | | | | | | [address] | | | | | | [phone] | | | | | | | | +--------+ + + + + documented as of this encounter Visit Diagnoses Not on filedocumented in this encounter"
--- OUTSIDE RECORDS SUMMARY | ~2019-12-21 | XMS | Encounter Summary ---
Demographics + + + | Address | [address] | | | [place] [address] | + + + | Home Phone [...] | | | | | [place] [address] | | + + + + + | Thania Mallory | ECON | [address] | | | | | [place] [address] | | + + + + + | Deidra Weldon | ECON | [address] | | | | | [place] | | | | | [address] | | + + + + + Care Team Providers + +------+ + | Care Photographic Artist Name | Role | Phone | [...] Update | | | | [address] [facility] | [facility] | | | | | [facility], | [place], [place] | | | | | [place] [address] | [address] | | | | | [phone] | | | +--------+ + + + [...] Denise | | | | | | [place], [place] | | | | | | [address] | | | | | | [phone] | | | | | | | | +--------+ + + + + documented as of this encounter Visit Diagnoses Not on filedocumented in this encounter"
--- OUTSIDE RECORDS SUMMARY | ~2019-12-21 | XMS | Encounter Summary ---
Demographics + + + | Address | [address] | | | [place] [address] | + + + | Home Phone [...] | | | | | [place] [address] | | + + + + + | Thania Mallory | ECON | [address] | | | | | [place] [address] | | + + + + + | Deidra Weldon | ECON | [address] | | | | | [place] | | | | | [address] | | + + + + + Care Team Providers + +------+ + | Care Early Intervention School Psychologist Name | Role | Phone | [...] | | | [address] | [place] [address] | | | | | [address] [place], | [place], [place] | | | | | [place] [address] | [address] | | | | | [phone] | [phone] | | | | | | | [...] Denise | | | | | | [place], [place] | | | | | | [address] | | | | | | [phone] | | | | | | | | +--------+ + + + + documented as of this encounter Visit Diagnoses Not on filedocumented in this encounter"
--- OUTSIDE RECORDS SUMMARY | ~2019-12-21 | XMS | Encounter Summary ---
Demographics + + + | Address | [address] | | | [place] [address] | + + + | Home Phone [...] | [facility] | | | and [place] | + + + | Organization | [facility] | | | and [...] Providers + +------+ + | Care Medical Physics Researcher Name | Role | Phone | [...] [address] | | | | | [place], [place] | [facility] [place] [address] | | | | | [address] | [phone] | | | | | [phone] | | | +--------+--------+ + + + [...]
--- OUTSIDE RECORDS SUMMARY | ~2019-12-21 | XMS | Encounter Summary ---
Demographics + + + | Address | [address] | | | [place] [address] | + + + | Home Phone [...] [address] | | | | | [place], [place] | [place] [address] | | | | | [address] | [phone] | | | | | [phone] | | | +--------+ + + + [...] her chart, she has vitamin listed. [facility] should she be taking? Thanks! documented in this en counter Plan of Treatment Not on filedocumented as of this encounter Visit Diagnoses Not on filedocumented in this encounter"
--- OUTSIDE RECORDS SUMMARY | ~2019-12-21 | XMS | Encounter Summary ---
Demographics + + + | Address | [address] | | | [place] [address] | + + + | Home Phone [...] | | | | | [place] [address] | | + + + + + | Deidra Weldon | ECON | [address] | | | | | [place] | | | | | [address] | | + + + + + Care Team Providers + +------+ + | Care Water Valve Repairer Name | Role | Phone | [...] | purpura | [address] | [address] | | | | | ([facility]) [facility] | [place] | [address] | | | | | (Amelie | [address] | [place] | | | | | nlein | [facility] [place] | Children's | | | | | purpura) | [address] | [address] | | | | | nephritis | Phone: | Floor | | | | | ([facility]) | [phone] | [place], [place] | | | | | Hemodialysis | Fax: | [address] | | | | | status | [phone] | Phone: | | | | | ([facility]) | | [phone] | | | | | Chronic | | Fax: | | | | | kidney | | [phone] | | | | | disease, | [...] | (Primary Dx) | | | | [facility] | [place], [place] | | | | | [address] | [address] | | | | | [place] | [phone] | | | | | [facility] | | | | | | [address] [facility] | | | | | | [place] [address] | | | | | | [phone] | | | +--------+ + + + [...] Denise | | | | | | [place], [place] | | | | | | [address] | | | | | | [phone] | | | | | | | [...]
--- OUTSIDE RECORDS SUMMARY | ~2019-12-21 | XMS | Encounter Summary ---
Demographics + + + | Address | [address] | | | [place] [address] | + + + | Home Phone [...] Providers + +------+ + | Care Service Attendant Name | Role | Phone [...] [address] [place] | [place] [address] | | | | | [address] [place], [place] | [phone] | | | | | [address] | | | | | | [phone] | | | +--------+ + + + [...]
--- OUTSIDE RECORDS SUMMARY | ~2019-12-21 | XMS | Encounter Summary ---
Demographics + + + | Address | [address] | | | [place] [address] | + + + | Home Phone [...] Author | [facility] | | | and [place] | + + + | Organization | [facility] | | | [...] Providers + +------+ + | Care Pathology Tech Name | Role | Phone | + +------+ + PCP | Unavailable | + +------+ + Encounter Details +--------+ + + + + | Date | Type | Department | Care Team | Description | +--------+ + + + + | 03/07/ | Hospital | [facility] | Rik Paez MD | Complication of AV | | 2015 | Encounter | [facility] | [address] | dialysis fistula, | | | | OPER[address] | [place], [place] | initial encounter | | | | [address] | [address] | (HCC) | | | | [place], [place] | [phone] | | | | | [address] | | | | | | [phone] | | | +--------+ + + + [...] documented as of this encounter H&P Notes Kimberly Franz ARNP - 03/07/2014 5:30 PM PSTFormatting of this note might be different f rom the original. H&P by KRISHNA Agarwal at 03/07/14 1730 Author: KRISHNA Agarwal Service: Vascular Surgery Author Type: Advanced Registered N jonathone Practitioner Filed: 03/08/14 1449 Date of Service: 03/07/141729 Status: Signed Cleat Maker: KRISHNA Agarwal (Advanced Registered Nurse Practitioner) [facility] Service: Vascular Surgery Pre-Operative History & Physical DIAGNOSIS: ESRD INDICATION: SAME PROCEDURE: Left arm fistulagram with possible intervention, left arm fistula declot CHIEF COMPLAINT: Clotted left AV fistula History Obtained From: patient, mother, father HISTORY OF PRESENT ILLNESS The patient is a 19 y.o. female with significant past medical history of HSP who presents with a clotted left radiocephalic fistula. This was created [address] Echevarria in [facility] who is currently out of town. Patient has been on dialysis for 2 years and current ly has a tunnel dialysis catheter in place. Previous access has been peritoneal dialysis. I t was noted at dialysis today that there was no thrill to her newly created fistula. Due to this her vascular surgeon has consulted us for declot of the left AV fistula. We have disc ussed this with patient and parents and they would like to proceed. REVIEW OF SYSTEMS Review of Systems Comprehensive ROS performed and pertinent items described in the HPI. Past Medical History Diagnosis Date HSP (Henoch-Schonlein purpura) nephritis Past Surgical History Procedure Laterality Date Av fistula placement Renal biopsy Laparoscopic peritoneal dialysis catheter insertion x2 Allergies Allergen Reactions Morphine Rash No current facility-administered medications on file prior to encounter. No current outpatient prescriptions on file prior to encounter. No family history on file. History Social History Marital Status: N/A Spouse Name: N/A Number of Children: N/A Years of Education: N/A Occupational History Not on file. Social History Main Topics Smoking status: Never Smoker Smokeless tobacco: Not on file Alcohol Use: No Drug Use: No Sexual Activity: Not on file Other Topics Concern Not on file Social History Narrative PHYSICAL EXAM Vital Signs: Pulse 68 | Temp(Src) 98.7 F (37.1 C) | Resp 16 | SpO2 99% | LMP 02/24/2014 Physical Exam Vitals reviewed. Constitutional: Patient appears well-developed and well-nourished. HENT: Head: Normocephalic and atraumatic. Mouth/Throat: Oropharynx is clear and moist. Cardiovascular: Normal rate and regular rhythm. Pulmonary/Chest: Effort normal and breath sounds normal. Abdominal: Soft. Bowel sounds are normal. Musculoskeletal: Normal range of motion. Neurological: Patient is alert and oriented to person, place, and time. Skin: Skin is warm and dry. Vascular: Left AVF DATA CBC: Lab Results Component Value Date [...] VALID IF AGE LT 20 YEARS. 03/07/2014 PT/INR: No results found for this basename: PROTIME, INR PTT: Lab Results Component Value Date APTT 29 03/07/2014 [APTT} PROBLEM LIST There is no problem list on file for this patient. ASSESSMENT & PLAN 1. Patient is a 19 y.o. female with above specified procedure planned. 2. Procedure options, risks, benefits and alternatives reviewed with patient who express( es) understanding. Any and all questions were answered to their satisfaction. Primary Care Physician: No primary provider on file. KRISHNA Agarwal 03/07/2014 *CORE MEASURES REMINDER: If the patient has a known or suspected infection prior to surger y, please add diagnosis to the problem list (consider: Infection 136.9). documented in this encounter ED Notes Lul Elizabeth MD - 03/07/2014 4:10 PM PST ED Provider Notes by Lul Elizabeth MD at 03/07/14 1610 Author: Lul Elizabeth MD Service: (none) Author Type: Physician Filed: 03/08/14 0232 Date of Service: 03/07/14 1610 Status: Signed Cleat Maker: Lul Elizabeth MD (Physician) Procedure Orders: 1. EKG [[id number]] ordered by Lul Elizabeth MD at 03/07/14 1600 [facility] Department of Emergency Medicine 4:10 PM History of Present Illness Patient Identification Dara Louise is a 19 y.o. female. Patient information was obtained from patient and parent. History/Exam limitations: none. Patient presented to the Emergency Department by: Car Chief Complaint Chief Complaint Patient presents with Referral pt has blood clot in left arm fistula, sent to ER to check in, supposed to go straight to the OR The patient presents to the ED for evaluation of L arm fistula complication. The pt had a L arm fistula placed about one week and a half ago in [place]. She is still using a righ t subclavian dialysis catheter for access, but today during dialysis blood clot was noted in the L arm fistula and she was sent to the ED to be evaluated. Dr. Paez is aware of the pt an d pt is scheduled to go to the OR. Pt has been on dialysis for approximately two years for k idney disease. Pt has not had any PO intake since 0600 this AM. The pt and parents have no o ther complaints or concerns at this time. Past Medical History Diagnosis Date HSP (Henoch-Schonlein purpura) nephritis Past Surgical History Procedure Laterality Date Av fistula placement Renal biopsy Laparoscopic peritoneal dialysis catheter insertion x2 Abdominal surgery Prior to Admission medications Medication Sig Start Date End Date Taking? Authorizing Provider cinacalcet (SENSIPAR) 30 MG tablet Take 25 mg by mouth daily. Yes Historical Provider folic acid-vitamin b complex-vitamin o-xtjthsem-dgny (DIALYVITE) 3 MG TABS Take 1 tablet by mouth daily. Yes Historical Provider furosemide (LASIX) 20 MG tablet Take 20 mg by mouth daily. Yes Historical Provider sevelamer (RENVELA) 800 MG tablet Take 800 mg by mouth 3 (three) times daily with meals. Yes Historical Provider Allergies Allergen Reactions Morphine Rash History Social History Marital Status: N/A Spouse Name: N/A Number of Children: N/A Years of Education: N/A Occupational History Not on file. Social History Main Topics Smoking status: Never Smoker Smokeless tobacco: Not on file Alcohol Use: No Drug Use: No Sexual Activity: Not on file Other Topics Concern Not on file Social History Narrative History reviewed. No pertinent family history. Review of Systems Constitutional: Negative for fever or chills Eyes: Negative for vision changes Ears: Negative for otalgia Nose: Negative for congestion or nosebleeds Throat: Negative for sore throat CV/Resp: Positive for L arm fistula complication Negative for chest pain, cdevbuacx-tv-isfogz, or cough GI: Negative for abdominal pain, nausea, vomiting, or diarrhea : Negative for urinary problems Musculoskeletal: Negative for back pain or joint pain Skin: Negative for rash Neuro/Psych: Negative for headache All other systems reviewed and negative except as noted. Physical Exam Pulse 68 | Temp(Src) 98.7 F (37.1 C) | Resp 16 | SpO2 99% | LMP 02/24/2014 Vitals interpretation: WNL Pulse Oximetry interpretation: Normal General: Alert, NAD Eyes: Normal inspection, EOMI, PERRL ENT: TM's normal. Nose normal. Normal pharynx. Neck: Supple, no meningismus CV: Regular rate and rhythm. Respiratory: No respiratory distress. Lungs clear to auscultation bilaterally Abdomen: Soft, non-tender, and non-distended. No guarding or rebound : Deferred Rectal: Deferred Back: Normal inspection, normal ROM Extremities: Fistula incision over the L forearm. No palpable thrill Skin: Warm, dry. No rash Neuro: No gross focal deficits. Motor and sensory grossly intact Psych: Normal affect Medical Decision Making and Emergency Department Course ED Department Course Pt presents to the ED for evaluation of a L arm fistula complication. On exam the pt has a fistula incision over the L forearm with no palpable thrill. The pt is alert and stable. Dr. Paez is aware of the pt and pt is scheduled to go to the OR. Basic labs with type&screen and EKG have been ordered. Records Reviewed Old medical records. Nursing notes. Laboratory Evaluation Results Procedure Component Value Ref Range Date/Time Complete Metabolic Panel [[id number]] (Abnormal) Collected: 03/07/141624 Order Status: Completed Updated: 03/07/14 171 Specimen Information: Blood SODIUM 138 135 - 143 mmol/L POTASSIUM 3.9 3.5 - 4.9 mmol/L CHLORIDE 103 99 - 109 mmol/L CO2 26 23 - 32 mmol/L ANION GAP AGAP 12 5 - 20 mmol/L GLUCOSE 78 65 - 99 mg/dL BUN 12 8 - 25 mg/dL CREATININE 3.51 (H) 0.50 - 1.00 mg/dL BUN/CREAT 4 CALCIUM 9.6 8.5 - 10.2 mg/dL TOTAL PROTEIN 8.1 6.3 - 8.2 g/dL Albumin 3.7 3.6 - 5.0 g/dL GLOBULIN 4.3 1.3 - 4.9 g/dL A/G 0.9 (L) 1.0 - 2.4 TBIL 0.4 0.1 - 1.5 mg/dL ALK PHOS 121 (H) 35 - 115 U/L AST 20 10 - 45 U/L ALT 38 10 - 65 U/L EGFR >60 mL/min/1.73m2 Result: CALCULATION NOT PERFORMED. RESULT NOT VALID IF AGE LT 20 YEARS. PTT [[id number]] Collected: 03/07/141624 Order Status: Completed Updated: 03/07/14 170 Specimen Information: Blood APTT 29 23 - 32 seconds CBC w Auto Diff [[id number]] (Abnormal) Collected: 03/07/141624 Order Status: Completed Updated: 03/07/14 1650 Specimen Information: Blood WBC 7.9 3.8 - 11.0 K/uL RBC 3.70 3.70 - 5.10 M/uL HGB 12.9 11.3 - 15.5 g/dL HCT 38.9 34.0 - 46.0 % MCV 105.2 (H) 80.0 - 100.0 fl MCH 35.0 (H) 27.0 - 34.0 pg MCHC 33.3 32.0 - 35.5 g/dL RDW SD 51.6 37 - 53 fl PLT 175 150 - 400 K/uL MPV 8.9 fl DIFF TYPE AUTOMATED NEUTROPHILS 71.7 % LYMPHOCYTES 19.5 % MONOCYTES 6.7 % EOSINOPHILS 1.6 % BASOPHILS 0.5 % NEUTROPHILS ABS 5.6 1.9 - 7.4 K/uL LYMPHOCYTES ABS 1.5 1.0 - 3.9 K/uL MONOCYTES ABS 0.5 0 - 0.8 K/uL EOSINOPHILS ABS 0.1 0 - 0.5 K/uL BASOPHILS ABS 0.0 0 - 0.1 K/uL Radiology and EKG Evaluation Interpreted by meLul MD at time of service Imaging Results None ED Diagnosis Final diagnosis Complication of AV dialysis fistula, initial encounter Disposition: ED Disposition None Follow-up Information Follow up With Details Comments Contact Info Rik Paez MD In [address] [place] [address] Discharge Medications: Discharge Medication List as of 03/07/2014 7:25 PM START taking these medications Details HYDROcodone-acetaminophen (NORCO) 5-325 MG per tablet Take 1-2 tablets by mouth every 6 (si x) hours as needed for Pain., Starting 03/07/2014, Until Mon03/17/14, Print Procedures Additional Documentation EKG Date/Time: 03/07/2014 4:29 PM Performed by: LUL ELIZABETH Authorized by: LUL ELIZABETH Interpreted by ED physician Rhythm: sinus rhythm Rate: normal BPM: 83 QRS axis: normal Conduction: conduction normal ST Segments: ST segments normal T Waves: T waves normal Clinical impression: normal ECG Attending Note: Documentation assistance provided by Marilee Kilpatrick (Scribe). Information recorded by the scribe has been reviewed and validated by me. Antonieta rowland with its contents. MD Lul Sharp MD 03/08/14 0232 documente d in this encounter Miscellaneous Notes Op Note - Rik Paez MD - 03/12/2014 4:13 PM PSTFormatting of this note might be differen t from the original. Op Note signed by Rik Paez MD at 03/13/14 0744 Author: Rik Paez MD Service: Vascular Surgery Author Type: Physician Filed: 03/13/14 0735 Date of Service: 03/12/14 1613 Status: Signed Cleat Maker: Rik Paez MD (Physician) DARA LOUISE Date of : 1995 DATE OF SERVICE March 07, 2014. PREOPERATIVE DIAGNOSIS End-stage renal disease and clotted left radiocephalic fistula. POSTOPERATIVE DIAGNOSIS End-stage renal disease and clotted left radiocephalic fistula. PROCEDURES 1. Thrombectomy of left radiocephalic fistula. 2. Thrombectomy of left radial artery. 3. Patch angioplasty of arterial anastomosis using bovine pericardial patch. SURGEON Rik Paez MD CAMP DIRECTOR KRISHNA Agarwal ANESTHESIA Moderate sedation with anesthesia present and local anesthesia. ESTIMATED BLOOD LOSS Less than 100 mL. FLUIDS GIVEN 200 mL crystalloid. INDICATIONS Ms. Louise is a pleasant 19-year-old female with past medical history significant for Hen och-Schonlein purpura who presents with a clotted left radiocephalic fistula. She states vilma t the fistula was created [address] Chavarria in [place], who is currently out of t own. The patient has previously been on dialysis via a peritoneal dialysis catheter, but has switched to hemodialysis. The patient is currently dialyzing via a right IJ PermCath, but w ould like her left radiocephalic fistula declotted. Discussion was held with the patient shan or to procedure, noting that this fistula has clotted fairly soon after fistula creation and may not be a salvageable fistula. However, the patient elected to proceed with the procedur e. FINDINGS There was minimal clot seen in the cephalic vein. However, there were clots seen in the dis mary kate radial artery with no inflow noted. A longitudinal venotomy was made in the cephalic vei n over the hooded anastomosis and the radial artery evaluated. The artery was heavily calcif ied with what appeared to be some injury from clamping. The artery was thrombectomized with inflow being reestablished. After inflow was obtained, the artery was dilated using a 2.5 mm dilator. After dilation, a patch was placed on the carrillo of the arterial anastomosis and the re was a mild thrill in the fistula at the end of the case. However, after the patient was t aken to PACU, the thrill in the fistula was again lost and it appeared that the fistula agai n reclotted. DESCRIPTION OF PROCEDURE The patient was properly identified and brought to the operating room where the patient was placed supine on the operating table and underwent moderate sedation with anesthesia presen t. The patient's left arm was then prepped and draped in the usual sterile fashion. Local an esthetic was then given to the left wrist and the prior incision was opened using a 15 blade . This was deepened with electrocautery and the left cephalic vein and the radial artery wer e carefully identified and dissected. Once the vessel was identified and dissected, these we re encircled with vessel loops and anastomosis then made in the cephalic vein. There was melita t seen at the arterial anastomosis, but there was scant amount of clot seen in the cephalic vein. A#4 Chinmay balloon was then used to perform thrombectomy, with no further clot being found in the cephalic vein. However, a #3 Chinmay balloon was passed into the artery and it was difficult to obtain arterial inflow. There was some backbleeding from the radial artery. Therefore, a longitudinal venotomy was then made at the carrillo of the arterial anastomosis in the cephalic vein. The artery was found to be heavily calcified and small. A #2 Chinmay bal loon was then placed up the cephalic vein, with scant inflow being obtained. It appeared vilma t there is some disease and may be some injuries from prior arterial clamping. Therefore a 2 .5 mm dilator was placed up the radial artery with inflow being established. Once inflow was established once again, a 0.8 x 8 cm bovine pericardial patch was then used to perform a [facility] angioplasty over the carrillo of the arterial anastomosis using 6-0 Prolene sutures in a run alexa fashion. Prior to completion of the anastomosis, the artery was forward-bled and the fi stula was back-flushed. After completion of the anastomosis there was a mild thrill in the f istula. The wound was then irrigated and hemostasis was ensured. The deep dermal tissue was then closed with 3-0 Vicryl and the skin closed with 4-0 Monocryl in subcuticular fashion. M astisol and Steri-Strip were then placed on the wound and sterile dressings were then applie d. The patient was then taken to the PACU where the fistula was again evaluated and at this time in the PACU the fistula again lost its thrill, indicating that the fistula most likely has reclotted. Therefore due to heavy disease at the artery, we did not attempt to take the patient back to the OR for another thrombectomy and the patient will probably need to have a new fistula created in the upper arm using a larger arterial inflow. Discussion was held wi th the patient and the patient was understanding of the results. COMPLICATION Inability to declot the left radiocephalic fistula. CONDITION Stable. P/ P/dlm/[id number] RIK PAEZ MD p Note - Rik Paez MD - 03/07/2014 7:08 PM PST Brief Op Note by Rik Paez MD at 03/07/141907 Author: Rik Paez MD Service: Vascular Surgery Author Type: Physician Filed: 03/07/141913 Date of Service: 03/07/141907 Status: Signed Cleat Maker: Rik Paez MD (Physician) [facility] Service: Vascular Surgery Brief Op Note Pre-operative Diagnosis: ESRD and clotted left radiocephalic fistula Post-operative Diagnosis: Same Procedure(s): Thrombectomy of left radiocephalic fistula Thrombectomy of left radial artery Patch angioplasty of arterial anastomosis using bovine pericardial patch Surgeon: Rik Paez MD Access Analyst(s): KRISHNA Agarwal Anesthesia: Moderate sedation with Anesthesia present and Local anesthesia Estimated Blood Loss: Less Than 100 ml Other: IV Fluids: 200 ml Indications: See pre-operative history and physical. Findings: Minimal clot seen in cephalic vein. However, there was clot seen in radial ava ry with no inflow noted. Longitudinal venotomy made in cephalic vein over carrillo of anastomos is and radial artery evaluated. Artery heavily calcified. The artery was thrombectomized w ith inflow being re-established. After inflow obtained, the artery was dilated using 2.5 mm dilator. After dilation, patch placed on carrillo of arterial anastomsis. Moderate thrill in fistula at end of case. Palpable ulnar pulse at end of case. Complications: None apparent Condition: Stable See dictated operative report for full details. Rik Paez MD 03/07/2014 documented in this encoun ter Plan of [...] preparation was performed | | | by [facility], [facility], [address] [place] [address]., | | | [place] [address] ([place] Supervisor: Daniel Larson M.D.; | | | [facility]#: [id number]). Diagnostician: Anahy Da Silva MD Pathologist | [...] LAB | | | | [address]vd;[place] [address] | | | | + + + + + + | Antibody | NEGATIVE | | EXTERNAL | | | Screen | | | LAB | | + + + + + + | Antibody | Testing performed at | | EXTERNAL | | | Screen | [facility];[address] | | LAB | | | | [address];[place] [address] | | | | + + + + + + | BB BAND | [id number] | | EXTERNAL | | | | | | LAB | | + + + + + + | BB BAND | Testing performed at | | EXTERNAL | | | | [facility];[address] | | LAB | | | | [address];[place] [address] | | | | + + + [...] (500), | | | | | | senior editor ROBERT BOOKER ([id number]) | | | | | | on 03/07/2014 6:28:09 PM | | | | + + + + + + + + | Specimen | + + | | + + + + + | Narrative | Performed At | + + + | Historically converted procedure from [facility] environment | EXTERNAL LAB | | Lul Elizabeth MD 03/08/2014 2:32 AM [facility] | | | [place] Department of Emergency Medicine 4:10 PM History of | | | Present Illness Patient Identification Dara Louise is a 19 | | | y.o. [...] | | | a half ago in [place]. She is still using a right subclavian | | | dialysis catheter for access, but today during dialysis blood clot | | | was noted in the L arm fistula and she was sent to the ED to be | | | evaluated. Dr. Paez is aware of the pt and pt [...] | | Provider folic acid-vitamin b complex-vitamin t-gcyfxbhg-xmqm | | | (DIALYVITE) 3 MG TABS [...] Negative for chest pain, | | | raggfgvbp-rh-oppjbq, or cough GI: Negative for abdominal pain, [...] The pt is alert and stable. Dr. Paez | | | is aware of the pt and pt is scheduled to go to the OR. Basic labs | | | with type&screen and EKG have been ordered. Records Reviewed Old | | | medical records. Nursing notes. Laboratory Evaluation Results | | | Procedure Component Value Ref Range Date/Time Complete Metabolic | | | Panel [[id number]] (Abnormal) Collected: 03/07/141624 Order | | | [...] LT 20 YEARS. | | | PTT [[id number]] Collected: 03/07/141624 Order Status: | | | Completed Updated: 03/07/141704 Specimen Information: | | | Blood APTT 29 23 - 32 seconds CBC w Auto Diff [[id number]] | | | (Abnormal) Collected: 03/07/141624 Order Status: | | | Completed Updated: 03/07/141649 Specimen Information: | | | Blood WBC [...] Comments Contact Info | | | Rik Paez MD In [address] [place] [address] | | | [phone] Discharge Medications: Discharge Medication | | | [...] with its contents. Lul | | | J Beus, MD | | + + + + [...] | Patient | performed at [facility] | | LAB | | | | [address];[place], [place] | | | | | | [address] | | | | + + + [...] [facility] | | LAB | | | | [address];[place] | | | | | | [address] | | | | + + + + + + | Non- | 3.70Comment: Testing | 3.70 - 5.10 | EXTERNAL | | | Red Blood | performed at [facility] | M/uL | LAB | | | Cells | [address];[place] | | | | | Counted | [id number] | | | | + + + + + + | Hemoglobin | 12.9Comment: Testing | 11.3 - 15.5 | EXTERNAL | | | | performed at [facility] | g/dL | LAB | | | | [address];[place] | | | | | | [address] | | | | + + + + + + | Hematocrit, | 38.9Comment: Testing | 34.0 - 46.0 % | EXTERNAL | | | POC | performed at [facility] | | LAB | | | | [address];[place] | | | | | | [address] | | | | + + + + + + | MCV | 105.2 (H)Comment: | 80.0 - 100.0 fl | EXTERNAL | | | | Testing performed at | | LAB | | | | [facility] | | | | | | [address];[place] [address] | | | | + + + + + + | MCH | 35.0 (H)Comment: Testing | 27.0 - 34.0 pg | EXTERNAL | | | | performed at [facility] | | LAB | | | | [address];[place] | | | | | | [address] | | | | + + + + + + | MCHC | 33.3Comment: Testing | 32.0 - 35.5 | EXTERNAL | | | | performed at [facility] | g/dL | LAB | | | | [address];[place] | | | | | | [address] | | | | + + + + + + | RDW-CV | 51.6Comment: Testing | 37 - 53 fl | EXTERNAL | | | | performed at [facility] | | LAB | | | | [address];[place] | | | | | | [address] | | | | + + + + + + | Platelet | 175Comment: Testing | 150 - 400 K/uL | EXTERNAL | | | Count | performed at [facility];[address] | | LAB | | | Plasma | [address];[place] | | | | | | [address] | | | | + + + + + + | MPV | 8.9Comment: Testing | fl | EXTERNAL | | | | performed at [facility];[address] | | LAB | | | | [address];[place] | | | | | | [address] | | | | + + + + + + | Differentia | AUTOMATEDComment: | | EXTERNAL | | | l Type | Testing performed at | | LAB | | | | [facility];[address] | | | | | | [address];[place] [address] | | | | + + + + + + | % Segmented | 71.7Comment: Testing | % | EXTERNAL | | | | performed at [facility];[address] | | LAB | | | Neutrophils | [address];[place] | | | | | | [address] | | | | + + + + + + | % | 19.5Comment: Testing | % | EXTERNAL | | | Lymphocytes | performed at [facility];[address] | | LAB | | | | [address];[place] | | | | | | [address] | | | | + + + + + + | % Monocytes | 6.7Comment: Testing | % | EXTERNAL | | | | performed at [facility] | | LAB | | | | [address];[place] | | | | | | [address] | | | | + + + + + + | % | 1.6Comment: Testing | % | EXTERNAL | | | Eosinophils | performed at [facility] | | LAB | | | | [address];[place] | | | | | | [address] | | | | + + + + + + | % Basophils | 0.5Comment: Testing | % | EXTERNAL | | | | performed at [facility] | | LAB | | | | [address];[place] | | | | | | [address] | | | | + + + + + + | Absolute | 5.6Comment: Testing | 1.9 - 7.4 K/uL | EXTERNAL | | | Segmented | performed at [facility] | | LAB | | | Neutrophils | [address];[place] | | | | | | [address] | | | | + + + + + + | Absolute | 1.5Comment: Testing | 1.0 - 3.9 K/uL | EXTERNAL | | | Lymphocytes | performed at [facility] | | LAB | | | | [address];[place] | | | | | | [address] | | | | + + + + + + | Absolute | 0.5Comment: Testing | 0 - 0.8 K/uL | EXTERNAL | | | Monocytes | performed at [facility] | | LAB | | | | [address];[place] | | | | | | [address] | | | | + + + + + + | Absolute | 0.1Comment: Testing | 0 - 0.5 K/uL | EXTERNAL | | | Eosinophils | performed at [facility] | | LAB | | | | [address];[place] | | | | | | [address] | | | | + + + + + + | Absolute | 0.0Comment: Testing | 0 - 0.1 K/uL | EXTERNAL | | | Basophils | performed at [facility] | | LAB | | | | [address];[place] | | | | | | [address] | | | | + + + [...] at [facility];[address] | mmol/L | LAB | | | | [address];[place] | | | | | | [address] | | | | + + + + + + | K | 3.9Comment: Testing | 3.5 - 4.9 | EXTERNAL | | | | performed at [facility];[address] | mmol/L | LAB | | | | [address];[place] | | | | | | [address] | | | | + + + + + + | Cl | 103Comment: Testing | 99 - 109 mmol/L | EXTERNAL | | | | performed at [facility];[address] | | LAB | | | | [address];[place] | | | | | | [address] | | | | + + + + + + | CO2 | 26Comment: Testing | 23 - 32 mmol/L | EXTERNAL | | | | performed at [facility];[address] | | LAB | | | | [address];[place] | | | | | | [address] | | | | + + + + + + | Anion Gap | 12Comment: Testing | 5 - 20 mmol/L | EXTERNAL | | | | performed at [facility];[address] | | LAB | | | | [address];[place] | | | | | | [address] | | | | + + + + + + | Glucose, | 78Comment: Testing | 65 - 99 mg/dL | EXTERNAL | | | Fasting | performed at [facility];[address] | | LAB | | | | [address];[place] | | | | | | [address] | | | | + + + + + + | BUN | 12Comment: Testing | 8 - 25 mg/dL | EXTERNAL | | | | performed at [facility];[address] | | LAB | | | | [address];[place] | | | | | | [address] | | | | + + + + + + | Creatinine | 3.51 (H)Comment: Testing | 0.50 - 1.00 | EXTERNAL | | | | performed at [facility];[address] | mg/dL | LAB | | | | [address];[place] | | | | | | [address] | | | | + + + + + + | BUN/Creatin | 4Comment: Testing | | EXTERNAL | | | ine Ratio | performed at [facility];[address] | | LAB | | | | [address];[place] | | | | | | [address] | | | | + + + + + + | Calcium | 9.6Comment: Testing | 8.5 - 10.2 | EXTERNAL | | | | performed at [facility];[address] | mg/dL | LAB | | | | [address];[place] | | | | | | [address] | | | | + + + + + + | Protein, | 8.1Comment: Testing | 6.3 - 8.2 g/dL | EXTERNAL | | | Total | performed at [facility];[address] | | LAB | | | | [address];[place] | | | | | | [address] | | | | + + + + + + | Albumin | 3.7Comment: Testing | 3.6 - 5.0 g/dL | EXTERNAL | | | | performed at [facility];[address] | | LAB | | | | [address];[place] | | | | | | [address] | | | | + + + + + + | Globulin | 4.3Comment: Testing | 1.3 - 4.9 g/dL | EXTERNAL | | | | performed at [facility];[address] | | LAB | | | | [address];[place] | | | | | | [address] | | | | + + + + + + | A/G Ratio | 0.9 (L)Comment: Testing | 1.0 - 2.4 | EXTERNAL | | | | performed at [facility];[address] | | LAB | | | | [address];[place] | | | | | | [address] | | | | + + + + + + | Bilirubin | 0.4Comment: Testing | 0.1 - 1.5 mg/dL | EXTERNAL | | | Total | performed at [facility];[address] | | LAB | | | | [address];[place] | | | | | | [address] | | | | + + + + + + | ALP, | 121 (H)Comment: Testing | 35 - 115 U/L | EXTERNAL | | | External | performed at [facility];[address] | | LAB | | | | [address];[place] | | | | | | [address] | | | | + + + + + + | AST | 20Comment: Testing | 10 - 45 U/L | EXTERNAL | | | | performed at [facility];[address] | | LAB | | | | [address];[place] | | | | | | [address] | | | | + + + + + + | ALT | 38Comment: Testing | 10 - 65 U/L | EXTERNAL | | | | performed at [facility];[address] | | LAB | | | | [address];[place] | | | | | | [address] | | | | + + + [...] [facility];[address] | | | | | | [address];[place], [place] | | | | | | [address] | | | | + + + [...]
--- OUTSIDE RECORDS SUMMARY | ~2019-12-21 | XMS | Clinical Summary ---
Demographics + + + | Address | [address] | | | [place] [address] | + + + | Home Phone [...] + | Author | [facility] | | | and [place] | + + + | Organization | [facility] | | | [...] Providers + +------+ + | Care Postal Carrier Name | Role | Phone | [...] 2.5 mLs into | | 0 | 07 | | Activ | | (VENOFER) 20 [...] | | | renal disease) ([facility]) | protocol | | | [...] 19 | | | + + +--------+---+------+---+-------+ +---+ + | | Additional | | | InformationPatient | | | not taking. Reason: | | | Not Effective, | | | Reported on | | | 07/14/2019 7:53 PM | +---+ + + + +--------+---+------+---+-------+ | albuterol 90 | [...] | | | | + + +--------+---+------+---+-------+ +---+ + | | Additional | | | InformationPatient | | | not taking. Reason: | | | Not Effective, | | | Reported on | | | 10/14/2019 5:22 AM | +---+ + + + +--------+---+------+---+-------+ | promethazine | Take 1 tablet by | 30 | 0 | 02/1 | | Activ | | (PHENERGAN) 25 mg | mouth every 8 hours | tablet | | 10/23 | | e | | tablet | as needed. | | | 20 | | | + + +--------+---+------+---+-------+ +---+ + | | Additional | | | InformationPatient | | | not taking. Reason: | | | Not Available, | | | Reported on | | | 10/14/2019 5:22 AM | +---+ + + + +--------+---+------+---+-------+ | ondansetron | Take 1 tablet by | 24 | 0 | 07/04 | | Activ | | (ZOFRAN ODT) 4 mg | mouth every 8 hours | tablet | | 06/23 | | e | | disintegrating | as needed for | | | 20 | | | | tablet | Nausea. | | | | | | + + +--------+---+------+---+-------+ +---+ + | | Additional | | | InformationPatient | | | not taking. Reason: | | | Not Available, | | | Reported on | | | 10/14/2019 5:22 AM | +---+ + + + +--------+---+------+---+-------+ | valsartan (DIOVAN) | Take 1 tablet by | 30 | 0 | 08/1 | | Activ | | 320 MG tablet | mouth Daily. | tablet | | 1/20 | | e | | | | | | 20 | | | + + +--------+---+------+---+-------+ | sevelamer | Take 4 tablets by | 270 | 0 | 08/1 | | Activ | | carbonate (RENVELA) | mouth 3 times daily | tablet | | 120 | | e | | 800 mg tablet | (with meals). | | | 20 | | | + + +--------+---+------+---+-------+ | citalopram | Take 1 tablet by | 30 | 0 | 08/1 | | Activ | | (CELEXA) 20 mg | mouth Daily. | tablet | | 1/20 | | e | | tablet | | | | 20 | | | + + +--------+---+------+---+-------+ Active Problems + + + | Problem | Noted Date | + + + | Fluid overload | 10/15/2019 | + + + | Chest pain at rest | 10/14/2019 | + + + | Major depressive disorder | 10/14/2019 | + + + | GERD with esophagitis | 10/14/2019 | + + + | Weakness generalized | 07/15/2019 | + + + | Acute on [...] | 11/07/2018 | + + + | Medically noncompliant | 10/17/2018 | + + + | Non-cardiogenic pulmonary [...] Overview: Active Kidney Transplant Waiting List at [facility]: | | 03/07/2014 | + + + + + | Obesity (BMI 30.0-34.9) | 02/24/2014 | + + + | History of Henoch-Schonlein purpura | | + + + + + | Overview: Diagnosed at age 10. 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 | + + + +---+ | ESRD [...] declot | | but reclotted). Listed at [facility] for kidney transplant - status | | [...] + + + | Hypertensive urgency | 10/14/19 | | | | 20 | 0 | + + + + | Acute on chronic respiratory failure with hypoxia | 07/15/19 | | | | 20 | 0 | + + + + | Hyperkalemia | 01/08/20 | | | | 19 | 9 | + + + + | Hypoglycemia | 01/08/20 | | | | 19 | 9 | + + + + | Bacteremia due to Gram-positive bacteria | 12/13/19 | | | | 19 | 9 | + + + + | Pulmonary edema with congestive heart failure with reduced left | 11/07/19 | | | ventricular function | 19 | 0 | + + + + | Hypertensive [...] 9 | + + + + | History of peritonitis, dialysis-associated | 07/30/19 | | | | 14 | 0 | + + + + + + | Overview: Due to MSSA. Had tunneled infection as well. PD | | catheter removed in July 2013. On Keflex till 08/01/13. | + + Encounters +--------+ + + + + | Date | Type | Specialty | Care Team | Description | +--------+ + + + + | 10/12/ | Emergency | Internal Medicine | Vivek Teran, | ESRD needing | | 2019 - | | | Mary Bennett, | dialysis ([facility]) | | | | | MD Harper, | (Primary Dx); | | 10/14/ | | | Shelley Gaona MD | Pleural effusion; | | 2019 | | | Joey Carlson | SOB (shortness of | | | | | Herbert Wellington MD | breath); Acute on | | | | | | chronic congestive | | | | | | heart failure, | | | | | | unspecified heart | | | | | | failure type ([facility]); | | | | | | Acute on chronic | | | | | | 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 | | | | | | (congestive heart | | | | | | failure) ([facility]); | | | | | | Acute on chronic | | | | | | respiratory failure | | | | | | with hypoxia (HCC); | | | | | | Chest pain at rest; | | | | | | GERD with | | | | | | esophagitis; | | | | | | Hypertensive | | | | | | urgency; Moderate | | | | | | episode of recurrent | | | | | | major depressive | | | | | | disorder (HCC); | | | | | | Moderate to severe | | | | | | pulmonary | | | | | | hypertension ([facility]); | | | | | | Noncompliance; | | | | | | Troponin I above | | | | | | reference range | +--------+ + + + + from [...] + + + Family History + + +--------+ + | Medical History | Relation | Name | Comments | + + +--------+ + | High blood pressure | Father | | | + + +--------+ + | Alcohol abuse | Father | | | + + +--------+ + | Hypertension | Father | | | + + +--------+ + | Kidney disease | Maternal | | | | | Aunt | | | + + +--------+ + | Heart disease | Mother | | | + + +--------+ + | Seizures | Mother | | | + + +--------+ + | Kidney disease | Other | cousin | | + + +--------+ + + +--------+ + + | Relation | Name | Status | Comments | + +--------+ + + | Father | | | | + +--------+ + + | Father | | Alive | HTN, alcoholic | + +--------+ + + | Maternal Aunt | | | | + +--------+ + + | Mother | | Alive | heart disease, epilepsy | + +--------+ + + | Other | cousin | Alive | | + +--------+ + + Social History + +-------+ +--------+ [...] + + + | Vaccine: | | 06/22/19 | | | Pneumococcal 19-64 | 3 | 13 | | | (2 of 3 - PPSV23) | | | | + + + + + | Adult Annual | | | | | Wellness Visit | 5 | | | + + + + + | Cervical Cancer | | | | | Screening (Pap) | 7 | | | + + + + + | Vaccine: | | 10/29/19 | | | Dtap/Tdap/Td (7 - | 9 | 09, | | | Td) | | 10/09/19 | | | | | 02, | | | | | 07/22/18 | | | | | 98, | | | | | Addition | | | | | al | | | | | history | | | | | exists | | + + + + + | Vaccine: Influenza | | 12/12/19 | | | (#1) | 0 | 19, | | | | | 12/14/19 | | | | | 13 | | + + + + + | Med Mgmt: Ca | | 10/15/19 | | | | 1 | 20, | | | | | 10/14/19 | | | | | 20, | | | | | 04/22/19 | | | | | 20, | | | | | Addition | | | | | al | | | | | history | | | | | exists | | + + + + + | Med Mgmt: Cr | | 10/15/19 | | | | 1 | 20, | | | | | 10/14/19 | | | | | 20, | | | | | 07/18/19 | | | | | 20, | | | | | Addition | | | | | al | | | | | history | | | | | exists | | + + + + + | Med Mgmt: K | | 10/15/19 | | | | 1 | 20, | | | | | 10/14/19 | | | | | 20, | | | | | 07/18/19 | | | | | 20, | | | | | Addition | | | | | al | | | | | history | | | | | exists | | + + + + + | Med Mgmt: Phosphate | | 10/15/19 | | | | 1 | 20, | | | | | 10/14/19 | | | | | 20, | | | | | 07/18/19 | | | | | 20, | | | | | Addition | | | | | al | | | | | history | | | | | exists | | + + + + + | Medication | | 10/15/19 | | | Management | 1 | 20 | | + + + + + | Vaccine: HPV | Completed | 03/02/20 | | | | | 15, | | | | | 05/28/19 | | | | | 15, | | | | | 11/13/19 | | | | | 14 | | + + + + + | Hepatitis C | Completed | 05/29/19 | | | Screening | | 19, | | | | | 05/28/19 | | | | | 19 | [...] Left: | SYNOVIS - | | | [id number] | | 0.8x8cm - [id number]: | | Arm | SYNO | | | N / | | Qty: 1 on 03/07/2014 by Alfred, | | | | | | /SPCE1 | | Rik Murphy MD | | | | | | [...] | | | COVIDIEN | | | [id number] | | | | | -MATT 867 - | | | [id number] / | | | | | COVI | | | | | | | | | | | /[id number] | | | | | | | [...] | | | 2019 | | | 10:42 | | | [...] R?MRN: | | | | | | [id number] | | | [id number] | | | riteri | | | [...] | | | [id number] | | | /21/20 | | | 12:00 | | | AM | | | [facility] | | | [place] | | | y | | | [...] | | | Helen | | | (09[birth year]03 | | | ,3,10, | | | [...] | | | St. | | | [place] | | | y | | | [...] | | | St. | | | [place] | | | y | | | [...] Flags | | | | | | [place] | | | ED | | | Dispar | | | ity | | | Measur | | | e - | | | [place] | | | has | | | [...] | | | s. | | | [place] | | | | | | Health [...] | | | By: | | | [place] | | | | | | Health [...] | | | St. | | | [place] | | | y | | | [...] | | | St. | | | [place] | | | y H. | | [...] | | | St. | | | [place] | | | y H. | | [...] | | | St. | | | [place] | | | y H. | | [...] | | | St. | | | [place] | | | y H. | | [...] | | | St. | | | [place] | | | y H. | | [...] | | | St. | | | [place] | | | y H. | | [...] | | | [place] | | | Upholstery Technician | | | al | | | [...] | | | [place] | | | Upholstery Technician | | | al | | | [...] | | | [place] | | | Upholstery Technician | | | al | | | [...] | | | [place] | | | Upholstery Technician | | | al | | | [...] | | | MD | | | Upholstery Technician | | | al | | | [...] +---+--------+ from Last 3 Months Results CBC with Differential (10/15/2019 3:53 AM PDT)Only the most recent of 2 [...] | | | Absolute | performed at [address], [address] | LABORATORY | | | | [facility], | | | | | | [place] [address] | | | | + + + + + + + + | Specimen | + + | Blood | + + + + + + + | Performing | Address | City/State/Zipcode | Phone Number | | Organization | | | | + + + + + | [facility] | [address] | [place] [address] | [phone] | + + + + + Phosphorus (10/15/2019 3:53 AM PDT)Only the most recent of 2 results within the time jorge lo dorothy is included. + + + + + + | Component | Value | Ref Range | Performed | Pathologist | | | | | At | Signature | + + + + + + | Phosphorus | 9.5 ()Comment: CALLED | 2.3 - 4.8 mg/dL | [facility] | | | | NURSING UNITREAD BACK | | LABORATORY | | | | RESULTS VERIFIEDFELIPEDA Douglas | | | | | | IN CDU AT 0440 BY | | | | | | TDTesting performed at | | | | | | K[place];[address] | | | [address];[place] [address] | | | | + + + + + + + + | Specimen | + + | Blood | + + + + + + + | Performing | Address | City/State/Zipcode | Phone Number | | Organization | | | | + + + + + | [facility] | [address] | [place] [address] | [phone] | + + + + + Magnesium (10/15/2019 3:53 AM PDT)Only the most recent of 2 results within the time period is included. + + + + + + | Component | Value | Ref Range | Performed | Pathologist | | | | | At | Signature | + + + + + + | Magnesium | 2.3Comment: Testing | 1.7 - 2.4 mg/dL | [facility] | | | | performed at [facility];[address] | | LABORATORY | | | | [address];[place], [place] | | | | | | [address] | | | | + + + + + + + + | Specimen | + + | Blood | + + + + + + + | Performing | Address | City/State/Zipcode | Phone Number | | Organization | | | | + + + + + | [facility] | [address] | [place] [address] | [phone] | + + + + + Basic [...] | | | | | | MDRD IDOH traceable | | | | | | equation.Testing | | | | | | performed at [facility], [address] | | | | | | [facility], | | | | | | [place] [address] | | | | + + + + + + + + | Specimen | + + | Blood | + + + + + + + | Performing | Address | City/State/Zipcode | Phone Number | | Organization | | | | + + + + + | [facility] | [address] | [place] [address] | [phone] | + + + + + Troponin I (10/14/2019 9:18 AM PDT)Only the most recent of 2 results within the time rona de la cruz is included. + + + + + + | Component | Value | Ref Range | Performed | Pathologist | | | | | At | Signature | + + + + + + | Troponin I | 0.087 (H)Comment: 0.04 | 0.00 - 0.04 | [facility] | | | | ng/mL [...] [facility];[address] [facility] | | | | | | [facility];[place] [address] | | | | + + + + + + + + | Specimen | + + | Blood | + + + + + + + | Performing | Address | City/State/Zipcode | Phone Number | | Organization | | | | + + + + + | [facility] | [address] | [place] [address] | [phone] | + + + + + Hepatitis B Surface Ag (10/14/2019 9:18 AM PDT) + + + + + + | Component | Value | Ref Range | Performed | Pathologist | | | | | At | Signature | + + + + + + | Hepatitis B | NegativeComment: Testing | Negative | [facility] | | | Surface Ag | performed at [facility], | | LABORATORY | | | | [address], [address], | | | | | | [facility] [address] | | | | + + + + + + + + | Specimen | + + | Blood | + + + + + + + | Performing | Address | City/State/Zipcode | Phone Number | | Organization | | | | + + + + + | [facility] | [address] | [place] [address] | [phone] | + + + + + , Serum, Qual (10/14/2019 9:18 AM PDT) + + + + + + | Component | Value | Ref Range | Performed | Pathologist | | | | | At | Signature | + + + + + + | Preg, Serum | NEGATIVEComment: Testing | NEG | [facility] | | | | performed at [facility];[address] | | LABORATORY | | | | [address];[place] | | | | | | [address] | | | | + + + + + + + + | Specimen | + + | Blood | + + + + + + + | Performing | Address | City/State/Zipcode | Phone Number | | Organization | | | | + + + + + | [facility] | [address] | [place] [address] | [phone] | + + + + + XR [...] Procedure Note | + + | Matt, [id number] - 10/14/2019 2:17 AM PDT | | [...] [facility];[address] [facility] | | | | | | Blvd;[place] [address] | | | | + + + + + + + + | Specimen | + + | Blood | + + + + + + + | Performing | Address | City/State/Zipcode | Phone Number | | Organization | | | | + + + + + | [facility] | [address] | [place] [address] | [phone] | + + + + + Comprehensive [...] 28 | 10 - 65 U/L | [facility] | | | | | | LABORATORY | | + + + + + + | Estimated | 3 (L)Comment: GFR <60: | >60 | [facility] | | | GFR | [...] | | | | | | MDRD IDOH traceable | | | | | | equation.Testing | | | | | | performed at [facility];[address] | | | | | | [address];[place], [place] | | | | | | [address] | | | | + + + + + + + + | Specimen | + + | Blood | + + + + + + + | Performing | Address | City/State/Zipcode | Phone Number | | Organization | | | | + + + + + | [facility] | [address] | [place] [address] | [phone] | + + + + + ECG [...] -COMPUTER | | | | | | ([phone]), science editor Luciano, | | | | | | Daniela ([id number]) on | | | | | | [...] SARS-CoV-2, | NEGATIVEComment: This | NEG | [facility] | | | NAAT | test was [...] at [facility] | | | | | | [facility];[place], [place] | | | | | | [address] | | | | + + + + + + + + | Specimen | + + | Tissue - Entire | | nasopharynx (body | | structure) | + + + + + + + | Performing | Address | City/State/Zipcode | Phone Number | | Organization | | | | + + + + + | [facility] | [address] | [place] [address] | [phone] | + + + + + from [...] +--------+ +---------+--------+ | MEDICARE | MEDICA | [id number] | 05/05/19 | [phone] | | Medica | | | RE | | 13-Pre | 5 | | re | | | PART A | | sent | | | | | | AND B | | | | | | + +--------+ +--------+ +---------+--------+ | MEDICARE | MEDICA | [id number] | 05/05/19 | [phone] | | Medica | | | RE | | 13-Pre | 5 | | re | | | PART A | | sent | | | | | | AND B | | | | | | + +--------+ +--------+ +---------+--------+ | [employer] | MODA | [id number] | | [phone] | | Medica | | MEDICAID HMO | HEALTH | | 019-Pr | 1 | | id | | | MDCD | | esent | | | | | | [place]MO [place] | | | | | | + +--------+ +--------+ +---------+--------+ | [employer] | MODA | [id number] | 03/06/19 | [phone] | | Medica [...] [birth year] | | [address] | | | al/Fam | | 1994 | [phone] | [address] [place], [place] | | | [place] | | | 2 (Home) | [id number] | + +--------+ +--------+ + + | Dara Weldon | Person | Self | [birth year] | | [address] | | | al/Fam | | 1994 | [phone] | [address] [place], [place] | | | [place] | | | 2 (Home) | [id number] | + +--------+ +--------+ + + | Cory Weldon | Person | Father | [birth year] | [address] | | | al/Fam | | 1971 | [phone] | [place] [address] | | | [place] | | | 9 (Home) | | + +--------+ +--------+ + + Advance Directives + + + + + | Type | Date Recorded | Patient | Explanation | | | | Post Acute Care Registered Nurse | | + + + + + | Power of | 11/06/2018 7:27 | | | | Biometric Screener | PM | | | + + + + + | Advance | 12/10/2018 11:26 | | blood? yes | | Directive | PM | | | + + + + + + + + + + | Code Status | Date | Date | Comments | | | Activated | Inactivated | | + + + + + | Full Code | 10/14/2019 | 10/15/2019 | | | | 5:01 AM | 10:17 PM | | + + + + + + + + +---+ | | | | | + + + +---+ | Full Code | 07/14/2019 | 07/18/2019 | | | | 6:37 PM | 7:39 PM | | + + + +---+ + + + +---+ | | | | | + + + +---+ | Full Code | 04/18/2019 | 04/23/2019 | | | | 5:18 PM | 1:46 PM | | + + + +---+ [...]
--- OUTSIDE RECORDS SUMMARY | ~2019-12-21 | XMS | Encounter Summary ---
Demographics + + + | Address | [address] | | | [place] [address] | + + + | Home Phone [...] + + | 01/23/ | Hospital | [facility] | Vivek Teran, | SOB (shortness of | | 2019 - | Encounter | [facility] | MD Brooks Oropeza | breath) (Primary | | | | CARE FLOOR [address] | [place] [address] | Dx); ESRD needing | | 01/26/ | | [address] | [phone] | dialysis ([facility]); | | 2019 | | [place], [place] | | Chronic pleural | | | | [address] | Omar Tirado MD [address] | effusion; | | | | [phone] | [address] | Noncompliance with | | | | | [place] [address] | renal dialysis | | | | | [phone] | ([facility]); Acute | | | | | | respiratory | | | | | Sotero Reinoso MD | distress; Anemia in | | | | | [address] | ESRD (end-stage | | | | | [place], [place] | renal disease) | | | | | [address] | ([facility]); At high risk | | | | | | for electrolyte | | | | | Usha Martínez MD | imbalance; ESRD on | | | | | [address] | hemodialysis ([facility]); | | | | | [place] [address] | Hyperphosphatemia; | | | | | [phone] | Noncompliance; | | | | | [...] might be different from th e original. [facility] Service: Hospitalist Discharge Summary Date of [...] CHEST AP PORTABLE (01/07/2019); CHEST TWO VIEWS 14190 (01/06/2019); XR CHEST AP PORTABLE (12/13/2018); FINDINGS: [...] CHEST AP PORTABLE (01/07/2019); CHEST TWO VIEWS 03189 (01/06/2019); FINDINGS: Mild cardiomegaly. No pneumothorax. Interstitial [...] Confirmed by MUSE READ ONLY, -COMPUTER ([id number]), society editor Luciano, Daniela ([id number]) on 01/24/2019 5:16: [...] to Gram-positive bacteria 12/12/2018 Clotted dialysis access ([facility]) 2014 Congestive heart failure (HCC) ESRD (end stage renal disease) ([facility]) HSP (Henoch-Schonlein purpura) nephritis ([facility]) 1987 Hypertension Pericardial effusion without cardiac tamponade 11/07/2018 Past Surgical History: Procedure Laterality Date ABDOMEN SURGERY AV FISTULA REPAIR 02/24/2014 LEFT Radical Cephalic Fistula Creation; Laterality: Left; Surgeon: Blake Chavarria MD ; Location: [facility] MAIN OR AV FISTULA REPAIR Left [...] - SUPERFICIALIZATION; Surgeon: Emanuel Simon MD; Location: [facility] MAIN OR; Service: Vascular; Laterality: Left; OTHER SURGICAL HISTORY Left 04/08/2014 AV FISTULA PLACEMENT - Procedure: AV FISTULA; Surgeon: Rik Simon MD; Location: [facility] ENE N OR; Service: Vascular; [...] file. Follow up: Jonathan Alonso MD [address] [facility] [address] Schedule an appointment as soon as possible [...] | | | | | renal disease) ([facility]) | protocol | | | [...] Chronic pleural effusion [J90] Recommendations: No acute STUDIO OPERATOR indication Management of the right pleural [...] PRN hydralazine. Pt also co pain at [facility] site for which she i s [...] might be different from th e original. [facility] Service: Hospitalist Admission History & Physical [...] to Gram-positive bacteria 12/12/2018 Clotted dialysis access ([facility]) 2014 Congestive heart failure (HCC) ESRD (end stage renal disease) (HCC) HSP (Henoch-Schonlein purpura) nephritis ([facility]) 1987 Hypertension Pericardial effusion without cardiac tamponade 11/07/2018 PSHx: Past Surgical History: Procedure Laterality Date ABDOMEN SURGERY AV FISTULA REPAIR 02/24/2014 LEFT Radical Cephalic Fistula Creation; Laterality: Left; Surgeon: Blake Chavarria MD ; Location: [facility] MAIN OR AV FISTULA REPAIR Left [...] - SUPERFICIALIZATION; Surgeon: Emanuel Simon MD; Location: [facility] MAIN OR; Service: Vascular; Laterality: Left; OTHER SURGICAL HISTORY Left 04/08/2014 AV FISTULA PLACEMENT - Procedure: AV FISTULA; Surgeon: Rik Simon MD; Location: [facility] OR; Service: Vascular; [...] file Gets together: Not on file Attends latter-day service: Not on file Active member of [...] file Social History Narrative She lives in [facility]. She does not work. She has 1 [...] CHEST AP PORTABLE (01/07/2019); CHEST TWO VIEWS 56566 (01/06/2019); XR CHEST AP PORTABLE (12/13/2018); FINDINGS: [...] CHEST AP PORTABLE (01/07/2019); CHEST TWO VIEWS 37897 (01/06/2019); XR CHEST AP PORTABLE (12/13/2018); FINDINGS: [...] CHEST AP PORTABLE (01/07/2019); CHEST TWO VIEWS 64329 (01/06/2019); FINDINGS: Mild cardiomegaly. No pneumothorax. Interstitial [...] detail and summarized as above. Dictation and stamp redemption clerk or software, [employer], used which may contain error for similar [...] - 01/23/2019 10:51 PM PSTAssociated Order(s): Thoracentesis [facility] Department of Emergency Medicine No flowsheet [...] rrival reported at this time. Dr. Anguiano, Marine Mammal Trainer. PCP: Jonathan Alonso MD Past Medical History: Diagnosis Date Asthma Bacteremia due to Gram-positive bacteria 12/12/2018 Clotted dialysis access ([facility]) 2014 Congestive heart failure ([facility]) ESRD (end stage renal disease) ([facility]) HSP (Henoch-Schonlein purpura) nephritis ([facility]) 1987 Hypertension Pericardial effusion without cardiac tamponade 11/07/2018 Past Surgical History: Procedure Laterality Date ABDOMEN SURGERY AV FISTULA REPAIR 02/24/2014 LEFT Radical Cephalic Fistula Creation; Laterality: Left; Surgeon: Blake Chavarria MD ; Location: [facility] MAIN OR AV FISTULA REPAIR Left 03/07/2014 Procedure: AV FISTULA - GRAFT REPAIR/REVISION; Surgeon: Rik Simon MD; Location: [facility]; Service: Vascular; Laterality: Left; biopsy of kidney age 10 DIALYSIS FISTULA CREATION 04/08/2014 Procedure: DIALYSIS CATHETER - INSERTION; Surgeon: Rik Simon MD; Location: [facility] OR ; Service: Vascular; Laterality: N/A; tunneled catheter.br hemodialysis catheter KIDNEY BIOPSY Left 2003 OTHER SURGICAL HISTORY LAPAROSCOPIC PERITONEAL DIALYSIS CATHETER INSERTION - x2 OTHER SURGICAL HISTORY Right 07/2013 LAPAROSCOPIC PERITONEAL DIALYSIS CATHETER INSERTION - current dialysis access MWF dialysis OTHER SURGICAL HISTORY Left 06/24/2014 SUPERFICIALIZATION OF AV FISTULA - Procedure: AV FISTULA - SUPERFICIALIZATION; Surgeon: Emanuel Simon MD; Location: [facility] MAIN OR; Service: Vascular; Laterality: Left; OTHER SURGICAL HISTORY Left 04/08/2014 AV FISTULA PLACEMENT - Procedure: AV FISTULA; Surgeon: Rik Simon MD; Location: [facility]; Service: Vascular; Laterality: Left; cephalic OTHER [...] file Gets together: Not on file Attends latter-day service: Not on file Active member of [...] file Social History Narrative She lives in [facility]. She does not work. She has 1 [...] hx, workup, and treatment with Dr. Tirado, [facility], who accepts the pt for admission. Will [...] Ref Range Date/Time B Type Natriuretic Peptide [[id number]] (Abnormal) Collected: 01/23/192326 Order Status: Completed Specimen: Blood Updated: 01/24/19 0005 BNP 4,312.07 0 - 100 pg/mL CBC with Differential [[id number]] (Abnormal) Collected: 01/23/192325 Order Status: Completed Specimen: [...] 2+ Platelet Estimate DECREASED Comprehensive Metabolic Panel [[id number]] (Abnormal) Collected: 01/23/192325 Order Status: Completed Specimen: [...] Estimated GFR 5 >60 mL/min/1.73m2 Troponin I [[id number]] (Abnormal) Collected: 01/23/192325 Order Status: Completed Specimen: Blood Updated: 01/23/192351 Troponin I 0.169 0.00 - 0.04 ng/mL Phosphorus [[id number]] (Abnormal) Collected: 01/23/192325 Order Status: Completed Specimen: [...] CHEST AP PORTABLE (01/07/2019); CHEST TWO VIEWS 82944 (01/06/2019); FINDINGS: Mild cardiomegaly. No pneumothorax. Interstitial [...] CHEST AP PORTABLE (01/07/2019); CHEST TWO VIEWS 83933 (01/06/2019); XR CHEST AP PORTABLE (12/13/2018); FINDINGS: [...] Disposition Condition Comment Admit Attending: OMAR TIRADO [[id number]] Discharge Medications: ED Prescriptions This print group [...] verify the correct kota ent, procedure, equipment, computer systems support specialist and site/side marked as required. Procedure purpose: [...] right posterior Intercostal space: 6th Puncture method: mlmy-dls-upvgke catheter Number of attempts: 1 Drainage amount: [...] continuing educa tion lan of Care - Kiak De Luna RN - 01/24/2019 3:38 PM [...] ure and other comorbidities who presents to [facility] ER on 01/24 for progressively [...] nonre sponsive oral opiate therapy such as [place] to be administered. No IV Benadryl to [...] R?MRN: | | | | | | [id number] | | | [id number] | | | riteri | | | [...] | | | St. | | | [place] | | | y | | | [...] | | | St. | | | [place] | | | y | | | [...] | | | St. | | | [place] | | | y | | | [...] | | | St | | | [place] | | | y | | | [...] St | | | | | | [place] | | | y | | | [...] | | | St. | | | [place] | | | y | | | [...] | | | St. | | | [place] | | | y H. | | [...] | | | St. | | | [place] | | | y H. | | [...] | | | St. | | | [place] | | | y H. | | [...] | | | St. | | | [place] | | | y H. | | [...] | | | St. | | | [place] | | | y H. | | [...] | | | St. | | | [place] | | | y H. | | [...] | | | MD | | | Computer Information Systems Instructor | | | al | | [...] | | | [id number] | | | [id number] | | | eb | | | [...] MISHEL | | | | performed at [facility], [address] | | LABORATORY | | | | [address], | | | | | | [place] [address] | | | | + + + + + + + + | Specimen | + + | | + + + + + + + | Performing | Address | City/State/Zipcode | Phone Number | | Organization | | | | + + + + + | [facility] | [address] | [place] [address] | [phone] | + + + + + CBC [...] | | | | performed at [facility], [address] | | LABORATORY | | | | [address], | | | | | | [place] [address] | | | | + + + + + + + + | Specimen | + + | | + + + + + + + | Performing | Address | City/State/Zipcode | Phone Number | | Organization | | | | + + + + + | [facility] | [address] | [place] [address] | [phone] | + + + + + Renal [...] 12 (L)Comment: GFR <60: | >60 | [facility] | | | GFR | [...] | | | | performed at [facility], [address] | | | | | | [facility], | | | | | | [place] [address] | | | | + + + + + + + + | Specimen | + + | Blood | + + + + + + + | Performing | Address | City/State/Zipcode | Phone Number | | Organization | | | | + + + + + | [facility] | [address] | [place] [address] | [phone] | + + + + + HEMODIALYSIS [...] Testing | 1.7 - 2.4 mg/dL | [facility] | | | | performed at [facility], [address] | | LABORATORY | | | | [address], | | | | | | [place] [address] | | | | + + + + + + + + | Specimen | + + | | + + + + + + + | Performing | Address | City/State/Zipcode | Phone Number | | Organization | | | | + + + + + | [facility] | [address] | [place] [address] | [phone] | + + + + + CBC [...] | | | | performed at [facility], [address] | | LABORATORY | | | | [address], | | | | | | [place] [address] | | | | + + + + + + + + | Specimen | + + | | + + + + + + + | Performing | Address | City/State/Zipcode | Phone Number | | Organization | | | | + + + + + | [facility] | [address] | [place] [address] | [phone] | + + + + + Renal [...] (H) | 2.3 - 4.8 mg/dL | [facility] | | | | | | LABORATORY | | + + + + + + | Estimated | 7 (L)Comment: GFR <60: | >60 | [facility] | | | GFR | [...] | | | | [place] [address] | | | | + + + + + + + + | Specimen | + + | Blood | + + + + + + + | Performing | Address | City/State/Zipcode | Phone Number | | Organization | | | | + + + + + | [facility] | [address] | [place] [address] | [phone] | + + + + + Iron [...] [address], | | | | | | [place] [address] | | | | + + + + + + + + | Specimen | + + | Blood | + + + + + + + | Performing | Address | City/State/Zipcode | Phone Number | | Organization | | | | + + + + + | [facility] | [address] | [place] [address] | [phone] | + + + + + Ferritin [...] | | | | | [place] [address] | | | | + + + + + + + + | Specimen | + + | Blood | + + + + + + + | Performing | Address | City/State/Zipcode | Phone Number | | Organization | | | | + + + + + | [facility] | [address] | [place] [address] | [phone] | + + + + + Creatine [...] Court, | | | | | | [place] [address] | | | | + + + + + + | CK-MB | 0Comment: Testing | 0 - 3 % | [facility] | | | | performed by [facility], | | LABORATORY | | | | [address], | | | | | | [place] [address] | | | | + + + + + + | CK-BB | 0Comment: Testing | 0 % | [facility] | | | | performed by [facility], | | LABORATORY | | | | [address], | | | | | | [place] [address] | | | | + + + + + + | CK, Total | 156Comment: Testing | 24 - 173 U/L | [facility] | | | | performed at [facility], | | LABORATORY | | | | [address], | | | | | | [place] [address] | | | | + + + + + + | CK-MACRO | 0 | Not Observed % | [facility] | | | TYPE 1 | | | LABORATORY | | + + + + + + | CK-MACRO | 0Comment: Testing | Not Observed % | [facility] | | | TYPE II | performed by [facility], | | LABORATORY | | | | [address], | | | | | | [place] [address] | | | | + + + + + + + + | Specimen | + + | Blood | + + + + + + + | Performing | Address | City/State/Zipcode | Phone Number | | Organization | | | | + + + + + | [facility] | [address] | [place] [address] | [phone] | + + + + + Phosphorus (01/24/2019 5:53 AM PST) + + + + + + | Component | Value | Ref Range | Performed | Pathologist | | | | | At | Signature | + + + + + + | Phosphorus | 8.6 (H)Comment: Testing | 2.3 - 4.8 mg/dL | [facility] | | | | performed at [facility], [address] | | LABORATORY | | | | [address], | | | | | | [place] [address] | | | | + + + + + + + + | Specimen | + + | Blood | + + + + + + + | Performing | Address | City/State/Zipcode | Phone Number | | Organization | | | | + + + + + | [facility] | [address] | [place] [address] | [phone] | + + + + + Magnesium (01/24/2019 5:53 AM PST) + + + + + + | Component | Value | Ref Range | Performed | Pathologist | | | | | At | Signature | + + + + + + | Magnesium | 2.6 (H)Comment: Testing | 1.7 - 2.4 mg/dL | [facility] | | | | performed at [facility], [address] | | LABORATORY | | | | [address], | | | | | | [place] [address] | | | | + + + + + + + + | Specimen | + + | Blood | + + + + + + + | Performing | Address | City/State/Zipcode | Phone Number | | Organization | | | | + + + + + | [facility] | [address] | [place] [address] | [phone] | + + + + + Basic [...] | | | | performed at [facility], [address] | | | | | | [address] [facility], | | | | | | [place] [address] | | | | + + + + + + + + | Specimen | + + | Blood | + + + + + + + | Performing | Address | City/State/Zipcode | Phone Number | | Organization | | | | + + + + + | [facility] | [address] | [place] [address] | [phone] | + + + + + CBC [...] | | | | | at [facility], [address] | | | | | | [facility], | | | | | | [place] [address] | | | | | |Testing performed at [facility], [address] [place] [address] | | | | | | | | | | + + +---- + + + + + | Specimen | + + | Blood | + + + + + + + | Performing | Address | City/State/Zipcode | Phone Number | | Organization | | | | + + + + + | [facility] | [address] | [place] [address] | [phone] | + + + + + Troponin I (01/24/2019 5:53 AM PST) + + + + + + | Component | Value | Ref Range | Performed | Pathologist | | | | | At | Signature | + + + + + + | Troponin I | 0.228 (H)Comment: 0.04 | 0.00 - 0.04 | [facility] | | | | ng/mL [...] | | | | | [facility];[address] [facility] | | | | | | [facility];[place] [address] | | | | + + + + + + + + | Specimen | + + | Blood | + + + + + + + | Performing | Address | City/State/Zipcode | Phone Number | | Organization | | | | + + + + + | [facility] | [address] | [place] [address] | [phone] | + + + + + XR [...] CHEST AP PORTABLE (01/07/2019); CHEST TWO VIEWS 26490 (01/06/2019); | | | FINDINGS: Mild cardiomegaly. [...] PORTABLE (01/07/2019); CHEST | | TWO VIEWS 16057 (01/06/2019); | | | | FINDINGS: | [...] [address] | [address];[place] [address] | | | | + + + + + + + + | Specimen | + + | Blood | + + + + + + + | Performing | Address | City/State/Zipcode | Phone Number | | Organization | | | | + + + + + | [facility] | [address] | [place] [address] | [phone] | + + + + + Phosphorus [...] [facility];[address] | | LABORATORY | | | | [address];[place], [place] | | | | | | [address] | | | | + + + + + + + + | Specimen | + + | Blood | + + + + + + + | Performing | Address | City/State/Zipcode | Phone Number | | Organization | | | | + + + + + | [facility] | [address] | [place] [address] | [phone] | + + + + + Troponin I (01/23/2019 11:26 PM PST) + + + + + + | Component | Value | Ref Range | Performed | Pathologist | | | | | At | Signature | + + + + + + | Troponin I | 0.169 (H)Comment: 0.04 | 0.00 - 0.04 | [facility] | | | | ng/mL [...] | | | | | [facility];[address];[place] [address] | | | | + + + + + + + + | Specimen | + + | Blood | + + + + + + + | Performing | Address | City/State/Zipcode | Phone Number | | Organization | | | | + + + + + | [facility] | [address] | [place] [address] | [phone] | + + + + + Comprehensive [...] | performed at [facility];[address] | | | | | | [facility];[place], [place] | | | | | | [address] | | | | + + + + + + + + | Specimen | + + | Blood | + + + + + + + | Performing | Address | City/State/Zipcode | Phone Number | | Organization | | | | + + + + + | [facility] | [address] | [place] [address] | [phone] | + + + + + CBC [...] | | LABORATORY | | | | [facility];[address] | | | | | | [address];[place] [address] | | | | + + + + + + + + | Specimen | + + | Blood | + + + + + + + | Performing | Address | City/State/Zipcode | Phone Number | | Organization | | | | + + + + + | [facility] | [address] | [place] [address] | [phone] | + + + + + XR [...] (01/07/2019); CHEST TWO | | | VIEWS 62679 (01/06/2019); XR CHEST AP PORTABLE (12/13/2018); | [...] CHEST AP PORTABLE (01/07/2019); CHEST TWO VIEWS 11312 (01/06/2019); XR | | CHEST AP PORTABLE [...] | | | | | society editor Daniela Luciano | | | | [...] correct | | | patient, procedure, equipment, computer systems support specialist and site/side marked as | [...] space: 6th Puncture method: | | | cuuc-pnq-ewoefh catheter Number of attempts: 1 Drainage amount: [...] | | | | | | Starting [facility] 01/24/19 at 0304 | | | [...] | | Arm | | Intravenous, ONCE, [facility] 01/24/19 | | AM PST | | | | | at 0125, For 1 dose | | | | | | + +-------+ +--------+---+--------+ +---+---+ | | | +---+---+ + +-------+ +--------+---+---+ | HYDROmorphone (DILAUDID) | Given | 01/25/20 | 0.5 mg | | | | injection 0.5 mg 0.5 mg, | | 19 1:13 | | | | | Intravenous, ONCE, [facility] 01/24/19 | | PM PST | [...] PST | | | | | Starting [facility] 01/24/19 at 0355, | | | [...] 19 2:47 | | | | | [facility] 01/24/19 at 0240, For 1 dose [...] nonresponsive to | | | Tylenol, Starting [facility] 01/24/19 at | | | 1409 [...] - PRN, Hypotension, | | | Starting [facility] 01/24/19 at 0833, | | | [...] - PRN, Hypotension, | | | Starting [facility] 01/25/19 at 1452, | | | Treatment [...]
--- OUTSIDE RECORDS SUMMARY | ~2019-12-21 | XMS | Encounter Summary ---
Demographics + + + | Address | [address] | | | [place] [address] | + + + | Home Phone [...] Team Providers + +------+ + | Care Merchandising Specialist Name | Role | Phone | [...] + + | 12/10/ | Hospital | [facility] | Rayray Powers MD | Sepsis, due to | | 2019 - | Encounter | [facility] | [address] | unspecified | | | | CARE [address]LO[address] | [place], [place] | organism, | | 12/14/ | | [address] | [address] | unspecified whether | | 2019 | | [place], [place] | [phone] | acute organ | | | | [address] | | dysfunction present | | | | [phone] | Minnie Gastelum MD | ([facility]) (Primary Dx); | | | | | [address] | Pneumonia of right | | | | | [place] [address] | lower lobe due to | | | | | [phone] | infectious organism; | | | | | | Hypoxia; | | | | | Jw Neri, DO [address] | Hypervolemia, | | | | | [address] | unspecified | | | | | [place] [address] | hypervolemia type; | | | | | [phone] | ESRD on dialysis | | | | | | ([facility]); Hyperkalemia; | | | | | | Acute on chronic | | | | | | respiratory failure | | | | | | with hypoxia and | | | | | | hypercapnia ([facility]); | | | | | | Acute respiratory | | | | | | failure with hypoxia | | | | | | ([facility]); Anemia in | | | | | | ESRD (end-stage | | | | | | renal disease) | | | | | | ([facility]); At high risk | | | | | | for electrolyte | | | | | | imbalance; Awaiting | | | | | | organ transplant | | | | | | status; 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 [facility] Service: Hospitalist Physician Discharge Summary Patient [...] bacteria 12/12/2018 Clotted dialysis access ([facility]) 2014 Congestive heart failure (HCC) ESRD (end stage renal disease) ([facility]) HSP (Henoch-Schonlein purpura) nephritis ([facility]) 1987 Hypertension Pericardial effusion without cardiac tamponade 11/07/2018 Past Surgical History: Procedure Laterality Date ABDOMEN SURGERY AV FISTULA REPAIR 02/24/2014 LEFT Radical Cephalic Fistula Creation; Laterality: Left; Surgeon: Blake Chavarria MD ; Location: [facility] MAIN OR AV FISTULA REPAIR Left 03/07/2014 Procedure: AV FISTULA - GRAFT REPAIR/REVISION; Surgeon: Rik Simon MD; Location: [facility] IN OR; Service: Vascular; Laterality: [...] FISTULA; Surgeon: Rik Simon MD; Location: [facility] OR; Service: Vascular; Laterality: Left; cephalic OTHER SURGICAL HISTORY Left 03/07/2014 DECLOT GRAFT - Procedure: GRAFT - DECLOT; Surgeon: Rik Simon MD; Location: [facility] OR ; Service: Vascular; Laterality: [...] hours. No results for input(s): PHART, PO2ART, KKA0ICY, B1BQMGQM, BEART in the last 168 hours. No results for input(s): APTT, INR, PTT in the last 168 hours. No results for input(s): TSH in the last 168 hours. Invalid input(s): T3FREE, FREET4 No results for input(s): TROPONINT in the last 168 hours. Invalid input(s): CKTOTAL, TROPONINI, CKMBINDEX Disposition: home No discharge procedures on file. Follow up: Jonathan Alonso MD [address] [facility] [address] Schedule an appointment as soon as possible for a visit hospital follow up Jorje Camp, [address] [facility] [address] [facility] [id number] Schedule an appointment as soon as possible [...] be sent through Care Everywhere.Leti Whitt (Adult) (Nigerien)documented in this encounter Medications at Time of [...] Yanes MD - 12/14/2018 10:16 AM PDT [facility] Service: Infectious Diseases Progress Note Hospital [...] Procedure Component Value Units Date/Time Culture, Blood [[id number]] Collected: 12/12/181942 Order Status: Canceled Lab Status: No result Specimen: Peripheral Blood Culture, Body Fluid Sterile [[id number]] Order Status: No result Lab Status: No result Specimen: Body Fluid from Pleural Fluid, Right Culture, Blood [[id number]] Collected: 12/12/18 0502 Order Status: Completed Lab Status: Preliminary result Updated: 12/13/18 1324 Specimen: Peripheral Blood Special Requests RWRIST Special Requests Testing performed at [facility];[address] [place] [address] 18962 RESULT NO GROWTH AT THIS TIME RESULT Testing performed at [facility], [address] [place] [address] Comment: Testing performed at [facility], [address] [place] [address] 06712 Influenza A and B RNA, NAAT [[id number]] Collected: 12/11/18 1556 Order Status: Completed Lab Status: Final result Updated: 12/11/18 1619 Influenza A NEGATIVE Influenza B NEGATIVE Comment: Testing performed by Molecular Methodology Testing performed at [facility];[address] [place] [address]2783 Flu Swab Collection [[id number]] Collected: 12/11/18 1546 Order Status: Completed Lab Status: Final result Updated: 12/11/18 1549 Specimen: Tissue from Nasopharynx Collection SPECIMEN RECEIVED IN LAB Comment: Testing performed at [facility];[address] [place] [address] 92071 Culture, Blood [[id number]] Collected: 12/11/18 0615 Order Status: Completed Lab Status: Preliminary result Updated: 12/12/18 1134 Specimen: Peripheral Blood Special Requests RAC Special Requests Testing performed at [facility];[address] [place] [address] 44903 RESULT NO GROWTH AT THIS TIME RESULT Testing performed at [facility], [address] [place] [address] Comment: Testing performed at [facility], [address] [place] [address] Culture, Blood [[id number]] (Abnormal) Collected: 12/10/18 2343 Order Status: Completed Lab Status: Final result Updated: 12/13/18 1009 Specimen: Blood from Line Gram Stain Result -- GRAM POSITIVE COCCI IN CLUSTERS SEEN IN AEROBIC BOTTLE SEEN IN ANAEROBIC BOTTLE Gram Stain Result -- SMEAR RESULTS CALLED TO AND READ BACK BY: Brigitte CARTER 6RDerick @ 7260 12/11/18 CDS RESULT STAPHYLOCOCCUS SPECIES, COAGULASE NEGATIVE RESULT GROWTH IN TWO OF TWO BOTTLES RESULT -- TIME TO DETECTION: 0.69 DAYS RESULT POSSIBLE CONTAMINANT, CLINICAL CORRELATION REQUIRED. RESULT Testing performed at [facility], [address] [place] [address] Comment: Testing performed at [facility], [address] [place] [address] 86440 Microbiology Results (72 hrs) Procedure Component Value Units Date/Time Culture, Blood [[id number]] Collected: 12/12/18 0502 Order Status: Completed Lab Status: Preliminary result Updated: 12/13/18 1324 Specimen: Peripheral Blood Special Requests RWRIST Special Requests Testing performed at [facility];[address] [place] [address] 26200 RESULT NO GROWTH AT THIS TIME RESULT Testing performed at [facility], [address] [place] [address] Comment: Testing performed at [facility], [address] [place] [address] 39242 Influenza A and B RNA, NAAT [[id number]] Collected: 12/11/18 1556 Order Status: Completed Lab Status: Final result Updated: 12/11/18 1619 Influenza A NEGATIVE Influenza B NEGATIVE Comment: Testing performed by Molecular Methodology Testing performed at [facility];[address] [place] [address] 16380 Flu Swab Collection [[id number]] Collected: 12/11/18 1546 Order Status: Completed Lab Status: Final result Updated: 12/11/18 1549 Specimen: Tissue from Nasopharynx Collection SPECIMEN RECEIVED IN LAB Comment: Testing performed at [facility];[address] [place] [address] IMAGING: No new images for review today. [...] was completed later after rounds. Dictation software, MitoProd, was used which may contain error for [...] Neri, DO - 12/04 2:42 PM PDT [facility] Service: Hospitalist Progress Note Pt: Dara Weldon AGE/SEX: 23 y.o. female : 1995 ROOM: [address] [place] [address]- TODAY'S DATE: 12/13/2018 Hospital Day: LOS: 2 [...] PASP is 73 mmHg - Baseline weight [id number]. In acute exacerbation - HD per nephrology [...] this note might be different from the [facility] Service: Infectious Diseases Progress Note Hospital Day: [...] Procedure Component Value Units Date/Time Culture, Blood [[id number]] Collected: 12/12/18 1943 Order Status: Canceled Lab Status: No result Specimen: Peripheral Blood Culture, Body Fluid Sterile [[id number]] Order Status: No result Lab Status: No result Specimen: Body Fluid from Pleural Fluid, Right Culture, Blood [[id number]] Collected: 12/12/18 0502 Order Status: Sent Lab Status: In process Updated: 12/12/18 1005 Specimen: Peripheral Blood Influenza A and B RNA, NAAT [[id number]] Collected: 12/11/18 1556 Order Status: Completed Lab Status: Final result Updated: 12/11/18 1619 Influenza A NEGATIVE Influenza B NEGATIVE Comment: Testing performed by Molecular Methodology Testing performed at [facility];[address] [place] [address] 28291 Flu Swab Collection [[id number]] Collected: 12/11/18 1546 Order Status: Completed Lab Status: Final result Updated: 12/11/18 1549 Specimen: Tissue from Nasopharynx Collection SPECIMEN RECEIVED IN LAB Comment: Testing performed at [facility];[address] [place] [address] 398[address] Culture, Blood [[id number]] Collected: 12/11/18 0615 Order Status: Completed Lab Status: Preliminary result Updated: 12/12/18 1134 Specimen: Peripheral Blood Special Requests RAC Special Requests Testing performed at [facility];[address] [place] [address] RESULT NO GROWTH AT THIS TIME RESULT Testing performed at [facility], [address] [place] [address] Comment: Testing performed at [facility], [address] [place] [address] Culture, Blood [[id number]] (Abnormal) Collected: 12/10/18 2343 Order Status: Completed [...] CLINICAL CORRELATION REQUIRED. RESULT Testing performed at [facility], [address] [place] [address] Comment: Testing performed at [address] [address] Microbiology Results (72 hrs) Procedure Component Value Units Date/Time Culture, Blood [[id number]] Collected: 12/12/18 0502 Order Status: Sent Lab Status: In process Updated: 12/12/18 1005 Specimen: Peripheral Blood Influenza A and B RNA, NAAT [[id number]] Collected: 12/11/18 1556 Order Status: Completed Lab Status: Final result Updated: 12/11/18 1619 Influenza A NEGATIVE Influenza B NEGATIVE Comment: Testing performed by Molecular Methodology Testing performed at [facility];[address] [place] [address] 43028 Flu Swab Collection [[id number]] Collected: 12/11/18 1546 Order Status: Completed Lab Status: Final result Updated: 12/11/18 1549 Specimen: Tissue from Nasopharynx Collection SPECIMEN RECEIVED IN LAB Comment: Testing performed at [facility];[address] [place] [address] 88931 Culture, Blood [[id number]] Collected: 12/11/18 0615 Order Status: Completed Lab Status: Preliminary result Updated: 12/12/18 1134 Specimen: Peripheral Blood Special Requests RAC Special Requests Testing performed at [facility];[address] [place] [address] 78525 RESULT NO GROWTH AT THIS TIME RESULT Testing performed at [facility], [address] [place] [address] Comment: Testing performed at [facility], [address] [place] [address]27 Culture, Blood [[id number]] (Abnormal) Collected: 12/10/18 2343 Order Status: Completed [...] CLINICAL CORRELATION REQUIRED. RESULT Testing performed at [facility], [address] [place] [address] Comment: Testing performed at [facility], [address] [place] [address] IMAGING: No new images for review today. [...] was completed later after rounds. Dictation software, MitoProd, was used which may contain error for [...] e might be different from the original. [facility] Adult Hospitalist Progress Note Hospital Day: [...] (HCC) HSP (Henoch-Schonlein purpura) nephritis ([facility]) 1987 Hypertension Pericardial effusion without cardiac tamponade 11/07/2018 PSH: Past Surgical History: Procedure Laterality Date ABDOMEN SURGERY AV FISTULA REPAIR 02/24/2014 LEFT Radical Cephalic Fistula Creation; Laterality: Left; Surgeon: Blake Chavarria MD ; Location: [facility] MAIN OR AV FISTULA REPAIR Left 03/07/2014 Procedure: AV FISTULA - GRAFT REPAIR/REVISION; Surgeon: Rik Simon MD; Location: [facility] IN OR; Service: Vascular; Laterality: [...] - 12/14/2018 9:52 AM PDTAssociated Order(s): HEMODIALYSIS [facility] Hemo[facility]Dialysis Procedure note Pt is seen [...] c urrently . QB 450 AP -200 Editor Department 170 Constitutional: pt appears without distress. on [...] Right pleural effusion Post OP Diagnosis: Same Packer Dried Beef: LUX Andre Anesthesia Type: Local- lidocaine Findings: 1,500 ml of serosanguinous fluid removed. Specimens: Pleural fluid sent for labs EBL: None Complications: None LUX Andre Interventional Radiology and Vascular Medicine Specialist documented in this en counter Consult Notes Reno Yanes MD - 12/12/2018 3:10 PM PDTAssociated Order(s): PROVIDER TO PROVIDER CONSULT [facility] Service: Infectious Diseases Initial Consult Note [...] now reported positive for gram-positive cocci in [facility] ers. She had had repeat blood cultures [...] History: Diagnosis Date Asthma Clotted dialysis access ([facility]) 2014 Congestive heart failure (HCC) ESRD (end stage renal disease) ([facility]) HSP (Henoch-Schonlein purpura) nephritis ([facility]) 1987 Hypertension Pericardial effusion without cardiac tamponade 11/07/2018 Past Surgical History: Procedure Laterality Date ABDOMEN SURGERY AV FISTULA REPAIR 02/24/2014 LEFT Radical Cephalic Fistula Creation; Laterality: Left; Surgeon: Blake Chavarria MD ; Location: [facility] MAIN OR AV FISTULA REPAIR Left 03/07/2014 Procedure: AV FISTULA - GRAFT REPAIR/REVISION; Surgeon: Rik Simon MD; Location: [facility] IN OR; Service: Vascular; Laterality: Left; biopsy of kidney age 10 DIALYSIS FISTULA CREATION 04/08/2014 Procedure: DIALYSIS CATHETER - INSERTION; Surgeon: Rik Simon MD; Location: [facility] OR ; Service: Vascular; Laterality: [...] FISTULA; Surgeon: Rik Simon MD; Location: [facility] OR; Service: Vascular; Laterality: Left; cephalic OTHER SURGICAL HISTORY Left 03/07/2014 DECLOT GRAFT - Procedure: GRAFT - DECLOT; Surgeon: Rik Simon MD; Location: [facility] OR ; Service: Vascular; Laterality: [...] She lives in [facility]. She does not work. She has 1 [...] Int ravenous See Admin Instructions Vida Andersen, [facility] vancomycin in saline IVPB 1.75 g 25 [...] Procedure Component Value Units Date/Time Culture, Blood [[id number]] Collected: 12/12/18 0502 Order Status: Sent Lab Status: In process Updated: 12/12/18 1005 Specimen: Peripheral Blood Influenza A and B RNA, NAAT [[id number]] Collected: 12/11/18 1556 Order Status: Completed Lab Status: Final result Updated: 12/11/18 1619 Influenza A NEGATIVE Influenza B NEGATIVE Comment: Testing performed by Molecular Methodology Testing performed at [facility];[address] [place] [address]673 Flu Swab Collection [[id number]] Collected: 12/11/18 1546 Order Status: Completed Lab Status: Final result Updated: 12/11/18 1549 Specimen: Tissue from Nasopharynx Collection SPECIMEN RECEIVED IN LAB Comment: Testing performed at [facility];[address] [place] [address] 43660 Culture, Blood [[id number]] Collected: 12/11/18 0615 Order Status: Completed Lab Status: Preliminary result Updated: 12/12/18 1134 Specimen: Peripheral Blood Special Requests RAC Special Requests Testing performed at [facility];[address] [place] [address] 82359 RESULT NO GROWTH AT THIS TIME RESULT Testing performed at [facility], [address] [place] [address] Comment: Testing performed at [facility], [address] [place] [address]39 Culture, Blood [[id number]] (Abnormal) Collected: 12/10/18 2343 Order Status: Completed Lab Status: Preliminary result Updated: 12/11/18 2226 Specimen: Blood from Line Gram Stain Result -- GRAM POSITIVE COCCI IN CLUSTERS SEEN IN AEROBIC BOTTLE SEEN IN ANAEROBIC BOTTLE Gram Stain Result -- SMEAR RESULTS CALLED TO AND READ BACK BY: Brigitte CARTER 6RP @ 7458 12/11/18 CDS RESULT CULTURE IN PROGRESS RESULT GROWTH IN TWO OF TWO BOTTLES RESULT -- TIME TO DETECTION: 0.69 DAYS RESULT Testing performed at [facility], [address] [place] [address] Comment: Testing performed at [address] [address] Microbiology Results (72 hrs) Procedure Component Value Units Date/Time Culture, Blood [[id number]] Collected: 12/12/18 0502 Order Status: Sent Lab Status: In process Updated: 12/12/18 1005 Specimen: Peripheral Blood Influenza A and B RNA, NAAT [[id number]] Collected: 12/11/18 1556 Order Status: Completed Lab Status: Final result Updated: 12/11/18 1619 Influenza A NEGATIVE Influenza B NEGATIVE Comment: Testing performed by Molecular Methodology Testing performed at [facility];[address] [place] [address]574 Flu Swab Collection [[id number]] Collected: 12/11/18 1546 Order Status: Completed Lab Status: Final result Updated: 12/11/18 1549 Specimen: Tissue from Nasopharynx Collection SPECIMEN RECEIVED IN LAB Comment: Testing performed at [facility];[address] [place] [address] 78827 Culture, Blood [[id number]] Collected: 12/11/18 0615 Order Status: Completed Lab Status: Preliminary result Updated: 12/12/18 1134 Specimen: Peripheral Blood Special Requests RAC Special Requests Testing performed at [facility];[address] [place] [address]152 RESULT NO GROWTH AT THIS TIME RESULT Testing performed at [facility], [address] [place] [address] Comment: Testing performed at [facility], [address] [place] [address] 44225 Culture, Blood [[id number]] (Abnormal) Collected: 12/10/18 2343 Order Status: Completed Lab Status: Preliminary result Updated: 12/11/182225 Specimen: Blood from Line Gram Stain Result -- GRAM POSITIVE COCCI IN CLUSTERS SEEN IN AEROBIC BOTTLE SEEN IN ANAEROBIC BOTTLE Gram Stain Result -- SMEAR RESULTS CALLED TO AND READ BACK BY: Brigitte CARTER 6RP @ 8091 12/11/18 CDS RESULT CULTURE IN PROGRESS RESULT GROWTH IN TWO OF TWO BOTTLES RESULT -- TIME TO DETECTION: 0.69 DAYS RESULT Testing performed at [facility], [address] [place] [address] Comment: Testing performed at [facility], [address] [place] [address] chest were reviewed. [...] on a Monday, Monday, Monday schedule at [facility] using left upper extremity AV fistula. She used to see Dr. Trent Camp but has switched to Emanuel Anguiano. She also has combined diastolic/systolic congestive heart failure and was recently hospital ized at [facility] with hypervolemia and right pleural effusion. She missed her last 2 dialysis sessions (12/05 and 12/07 with "lack of transport). Of note anitha quarles has a history of missing dialysis treatments and non adherence to diet/fluid restriction a nd has had multiple hospitalizations at [facility] last year with similar presentation. She presented to ED with shortness of breath/chest pains. Imaging was consistent with recurrent hypervolemia. Lab work up showed severe hyperkalemia without EKG changes. She was admitted. Nephrology consultation was requested by Dr. Powers for evaluation and management of ESRD As sociated with: fluid electrolyte acid base imbalances including hyperkalemia. Records from [facility] reviewed. Last outpatient HD was 12/05/18. [...] was completed later after rounds. Dictation software, MitoProd, was used which may contain error for [...] 400 Units/hr (12/11/18 1018) documented in this [facility] ED Notes Lawrence Barajas MD - 12/11/2018 [...] Rhythm: normal sinus rhythm Ventricular Rate: 75 [place]: normal [place] Interval: The intervals are normal. ST Segments: [...] Powers MD - 019 11:07 PM PDT [facility] Department of Emergency Medicine 7:21 Pt [...] History: Diagnosis Date Asthma Clotted dialysis access ([facility]) 2014 Congestive heart failure (HCC) ESRD (end stage renal disease) ([facility]) HSP (Henoch-Schonlein purpura) nephritis ([facility]) 1987 Hypertension Pericardial effusion without cardiac tamponade 11/07/2018 Past Surgical History: Procedure Laterality Date ABDOMEN SURGERY AV FISTULA REPAIR 02/24/2014 LEFT Radical Cephalic Fistula Creation; Laterality: Left; Surgeon: Blake Chavarria MD ; Location: [facility] MAIN OR AV FISTULA REPAIR Left 03/07/2014 Procedure: AV FISTULA - GRAFT REPAIR/REVISION; Surgeon: Rik Simon MD; Location: [facility] OR; Service: Vascular; Laterality: Left; biopsy of kidney age 10 DIALYSIS FISTULA CREATION 04/08/2014 Procedure: DIALYSIS CATHETER - INSERTION; Surgeon: Rik Simon MD; Location: [facility] OR ; Service: Vascular; Laterality: [...] FISTULA; Surgeon: Rik Simon MD; Location: [facility] OR; Service: Vascular; Laterality: Left; cephalic OTHER SURGICAL HISTORY Left 03/07/2014 DECLOT GRAFT - Procedure: GRAFT - DECLOT; Surgeon: Rik Simon MD; Location: [facility] OR ; Service: Vascular; Laterality: [...] She lives in [facility]. She does not work. She has 1 [...] imaging and reevaluate the patient. Will call [facility] hrology as dialysis would likely be required for definitive management ====EKG Interpretation==== Time: 2213 Rate: 127 Rhythm: sinus tachycardia [place]: left Intervals: Normal ST: No significant ST [...] Disposition Condition Comment Admit Attending: MINNIE GASTELUM [[id number]] ED Prescriptions None Procedures 150 minutes of [...] had dialysis since Monday, was see in [facility] ED for CP, dx with pulmonary [...] and Fall-Related Injury Outcome: Met lan of [facility] - Taylor Sanon RN - 12/14/2018 3:42 [...] Pt is scheduled for dialysis M/W/F at [facility] in [facility]. Pt gets rides from family and friends [...] Review Outcome: Ongoing, progressing Flowsheets (Taken 12/11/2018 7658) Plan of Care Reviewed With: patient Note: Discussed hemodialysis, labs, medications, diet, activity, pain management. Goal: Optimal Comfort and Wellbeing Outcome: Ongoing, progressing Intervention: Monitor Pain and Promote Comfort Note: See vital signs flow sheet and MAR for details. documented in [facility] s encounter Plan of Treatment + +------+--------+ [...] R?MRN: | | | | | | [id number] | | | [id number] | | | riteri | | | [...] | | St. | | | [place] [place] | | | y | | | [...] | | St. | | | [place] | | | y | | | [...] | | St. | | | [place] | | | y | | | [...] | | St | | | [place] | | | y | | | [...] | | | | | | [place] | | | y | | | [...] | | St. | | | [place] | | | y | | | [...] | | St. | | | [place] | | | y H. | | [...] | | St. | | | [place] | | | y H. | | [...] | | St. | | | [place] | | | y H. | | [...] | | St. | | | [place] | | | y H. | | [...] | | | pulmon | | | nane | | | edema | | | [...] | | St. | | | [place] | | | y H. | | [...] | | St. | | | [place] | | | y H. | | [...] | | St. | | | [place] | | | y H. 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 on [...] Hospital, | | | | | | [place] [address] | | | | | |Testing performed at [facility], [address] [facility], [place] [address] | | | | | | | | | | + + +---- + + + + + | Specimen | + + | Blood | + + + + + + + | Performing | Address | City/State/Zipcode | Phone Number | | Organization | | | | + + + + + | [facility] | [address] | [place] [address] | [phone] | + + + + + Basic [...] | | | | | [place] [address] | | | | + + + + + + + + | Specimen | + + | Blood | + + + + + + + | Performing | Address | City/State/Zipcode | Phone Number | | Organization | | | | + + + + + | [facility] | [address] | [place] [address] | [phone] | + + + + + XR [...] | | | | | [facility], | | | | | | [place] [address] | | | | + + + + + + + + | Specimen | + + | Blood | + + + + + + + | Performing | Address | City/State/Zipcode | Phone Number | | Organization | | | | + + + + + | [facility] | [address] | [place] [address] | [phone] | + + + + + [place] [...] 8.6 (H)Comment: Testing | <0.5 mg/dL | [facility] | | | | performed at [facility], [address] | | LABORATORY | | | | [address], | | | | | | [place] [address] | | | | + + + + + + + + | Specimen | + + | Blood | + + + + + + + | Performing | Address | City/State/Zipcode | Phone Number | | Organization | | | | + + + + + | [facility] | [address] | [place] [address] | [phone] | + + + + + Culture, [...] Special | Testing performed at | | [facility] | | | Requests | [facility];[address] | | LABORATORY | | | | [address];[place] [address] | | | | + + + + + + | RESULT | NO GROWTH 6 DAYS | | [facility] | | | | | | LABORATORY | | + + + + + + | RESULT | Testing performed at | | [facility] | | | | TCL, [address] | | LABORATORY | | | | [place], [place] | | | | | | [id number]: Testing | | | | | | performed at [facility], [address] | | | | | | [address], [place], [place] | | | | | | [address] | | | | + + + [...] CENTER LABORATORY | [address] | [place] [address] | [phone] | + + + + + CBC [...] MISHEL | | | | performed at [facility], [address] | | LABORATORY | | | | [address], | | | | | | [place] [address] | | | | + + + + + + + + | Specimen | + + | Blood | + + + + + + + | Performing | Address | City/State/Zipcode | Phone Number | | Organization | | | | + + + + + | [facility] | [address] | [place] [address] | [phone] | + + + + + Basic [...] | | | | | [place] [address] | | | | + + + + + + + + | Specimen | + + | Blood | + + + + + + + | Performing | Address | City/State/Zipcode | Phone Number | | Organization | | | | + + + + + | [facility] | [address] | [place] [address] | [phone] | + + + + + Basic [...] | | | | performed at [facility];[address] | | | | | | [facility];[place], [place] | | | | | | [address] | | | | + + + + + + + + | Specimen | + + | Blood | + + + + + + + | Performing | Address | City/State/Zipcode | Phone Number | | Organization | | | | + + + + + | [facility] | [address] | [place] [address] | [phone] | + + + + + Influenza [...] | | | | performed at [facility];[address] | | | | | | [address];[place], [place] | | | | | | [address] | | | | + + + + + + + + | Specimen | + + | | + + + + + + + | Performing | Address | City/State/Zipcode | Phone Number | | Organization | | | | + + + + + | [facility] | [address] | [place] [address] | [phone] | + + + + + FLU SWAB COLLECTION (12/11/2018 3:46 PM PDT) + + + + + + | Component | Value | Ref Range | Performed | Pathologist | | | | | At | Signature | + + + + + + | Collection | SPECIMEN RECEIVED IN | | [facility] | | | | LABComment: Testing | | LABORATORY | | | | performed at [facility];[address] | | | | | | [address];[place] | | | | | | [address] | | | | + + + + + + + + | Specimen | + + | Tissue - Entire | | nasopharynx (body | | structure) | + + + + + + + | Performing | Address | City/State/Zipcode | Phone Number | | Organization | | | | + + + + + | [facility] | [address] | [place] [address] | [phone] | + + + + + POC Glucose (12/11/2018 8:31 AM PDT) + + + + + + | Component | Value | Ref Range | Performed | Pathologist | | | | | At | Signature | + + + + + + | Glucose, | 84Comment: Testing | 65 - 99 mg/dL | [facility] | | | POC | performed at [facility];[address] | | LABORATORY | | | | [address];[place] | | | | | | [address] | | | | + + + + + + + + | Specimen | + + | | + + + + + + + | Performing | Address | City/State/Zipcode | Phone Number | | Organization | | | | + + + + + | [facility] | [address] | [place] [address] | [phone] | + + + + + ECG [...] | | | | editor farm journal Daniela Luciano | | | | | [...] | | | | performed at [facility];[address] | | LABORATORY | | | | [address];[place] | | | | | | [address] | | | | + + + + + + + + | Specimen | + + | Blood | + + + + + + + | Performing | Address | City/State/Zipcode | Phone Number | | Organization | | | | + + + + + | [facility] | [address] | [place] [address] | [phone] | + + + + + Basic [...] LABORATORY | | | | M ON [id number] 2 2041 BY | | | | | | [...] 3 (L)Comment: GFR <60: | >60 | LOS [...] | | | | | | MDRD [facility] traceable | | | | | | equation.Testing | | | | | | performed at [facility] | | | | | | [facility];[place], [place] | | | | | | [address] | | | | + + + + + + + + | Specimen | + + | Blood | + + + + + + + | Performing | Address | City/State/Zipcode | Phone Number | | Organization | | | | + + + + + | [facility] | [address] | [place] [address] | [phone] | + + + + + Culture, [...] | | LABORATORY | | | | Blvd;[place] [address] | | | | + + + + + + | RESULT | NO GROWTH 6 DAYS | | [facility] | | | | | | LABORATORY | | + + + + + + | RESULT | Testing performed at | | [facility] | | | | TCL, [address] | | LABORATORY | | | | [place] | | | | | | [address]Hecnsnl: Testing | | | | | | performed at [facility], [address] | | | | | | [address], [place], [place] | | | | | | [address] | | | | + + + [...] [facility] | [address] | [place] [address] | [phone] | + + + + + CT [...] | | | | performed at [facility];[address] | | | | | | [address];[place] | | | | | | [address] | | | | + + + + + + + + | Specimen | + + | | + + + + + + + | Performing | Address | City/State/Zipcode | Phone Number | | Organization | | | | + + + + + | [facility] | [address] | [place] [address] | [phone] | + + + + + Lactic Acid (12/11/2018 1:04 AM PDT) + + + + + + | Component | Value | Ref Range | Performed | Pathologist | | | | | At | Signature | + + + + + + | Lactate, | 1.2Comment: Testing | 0.4 - 2.0 | [facility] | | | Serum | performed at [facility];[address] | mmol/L | LABORATORY | | | | [address];[place] | | | | | | [address] | | | | + + + + + + + + | Specimen | + + | Blood | + + + + + + + | Performing | Address | City/State/Zipcode | Phone Number | | Organization | | | | + + + + + | [facility] | [address] | [place] [address] | [phone] | + + + + + Lactic Acid (12/10/2018 11:44 PM PDT) + + + + + + | Component | Value | Ref Range | Performed | Pathologist | | | | | At | Signature | + + + + + + | Lactate, | 0.8Comment: Testing | 0.4 - 2.0 | [facility] | | | Serum | performed at [facility];[address] | mmol/L | LABORATORY | | | | [address];[place], [place] | | | | | | [address] | | | | + + + + + + + + | Specimen | + + | Blood | + + + + + + + | Performing | Address | City/State/Zipcode | Phone Number | | Organization | | | | + + + + + | [facility] | [address] | [place] [address] | [phone] | + + + + + Culture, [...] RESULT | Testing performed at | | [facility] | | | | [facility], [address] [facility] | | LABORATORY | | | | [facility], [place], [place] | | | | | | [id number]: Testing | | | | | | performed at [facility], [address] | | | | | | [facility] [address] [facility] [address], | | | | | | [place] [address] | | | | + + + [...] [facility] | [address] | [place] [address] | [phone] | + + + + + XR [...] | | | | | | [facility];[address] [facility] | | | | | | Blvd;[place] [address] | | | | + + + + + + + + | Specimen | + + | Blood | + + + + + + + | Performing | Address | City/State/Zipcode | Phone Number | | Organization | | | | + + + + + | [facility] | [address] | [place] [address] | [phone] | + + + + + Protime [...] | | | | performed at [facility];[address] | | | | | | [address];[place], [place] | | | | | | [address] | | | | + + + + + + + + | Specimen | + + | Blood | + + + + + + + | Performing | Address | City/State/Zipcode | Phone Number | | Organization | | | | + + + + + | [facility] | [address] | [place] [address] | [phone] | + + + + + CBC [...] | | | | | at [facility];[address] | | [address] | [address];[place] [address] | | | | | |NORMAL PLT MORPH | | | | | |Testing performed at [facility];[address] [place] [address];[place] [address] | | | | | | | | | | + + + + + + + + | Specimen | + + | Blood | + + + + + + + | Performing | Address | City/State/Zipcode | Phone Number | | Organization | | | | + + + + + | [facility] | [address] | [place] [address] | [phone] | + + + + + Phosphorus (12/10/2018 11:02 PM PDT) + + + + + + | Component | Value | Ref Range | Performed | Pathologist | | | | | At | Signature | + + + + + + | Phosphorus | 8.9 (H)Comment: Testing | 2.3 - 4.8 mg/dL | [facility] | | | | performed at [facility];[address] | | LABORATORY | | | | [address];[place] | | | | | | [address] | | | | + + + + + + + + | Specimen | + + | Blood | + + + + + + + | Performing | Address | City/State/Zipcode | Phone Number | | Organization | | | | + + + + + | [facility] | [address] | [place] [address] | [phone] | + + + + + Magnesium (12/10/2018 11:02 PM PDT) + + + + + + | Component | Value | Ref Range | Performed | Pathologist | | | | | At | Signature | + + + + + + | Magnesium | 2.2Comment: Testing | 1.7 - 2.4 mg/dL | [facility] | | | | performed at [facility];[address] | | LABORATORY | | | | [facility];[place], [place] | | | | | | [address] | | | | + + + + + + + + | Specimen | + + | Blood | + + + + + + + | Performing | Address | City/State/Zipcode | Phone Number | | Organization | | | | + + + + + | [facility] | [address] | [place] [address] | [phone] | + + + + + Comprehensive [...] BY TD | | | | | |ANDEI RN IN ED AT 0017 BY TD [...] 3 (L)Comment: GFR <60: | >60 | LOS [...] | | | | performed at [facility];[address] | | | | | | [facility];[place], [place] | | | | | | [address] | | | | + + + + + + + + | Specimen | + + | Blood | + + + + + + + | Performing | Address | City/State/Zipcode | Phone Number | | Organization | | | | + + + + + | [facility] | [address] | [place] [address] | [phone] | + + + + + ECG [...] | | | | | ONLY, -COMPUTER (882), | | | | | | editor farm journal Daniela Luciano | | | | | [...] - PRN, Hypotension, | | | Starting [facility] 12/11/18 at 0937, | | | Treatment [...] - PRN, Hypotension, | | | Starting [facility] 12/12/18 at 0734, | | | [...]
--- OUTSIDE RECORDS SUMMARY | ~2019-12-21 | XMS | Encounter Summary ---
[...] Dx); Panic disorder | | | | [place], [place] | | | | | | [address] | | | | | | [phone] | | | +--------+ + + + [...] agoraphobia | + + documented in this encounter Additional Health Concerns [...]
--- OUTSIDE RECORDS SUMMARY | ~2019-12-21 | XMS | Encounter Summary ---
Demographics + + + | Address | [address] | | | [place] [address] | + + + | Home Phone [...] Providers + +------+ + | Care Department Coordinator Name | Role | Phone | [...] [address] [place] | | | | | [place], [place] | [place] [address] | | | | | [address] | [phone] | | | | | [phone] | | | +--------+ + + + [...] Dr. Camp's progress note from 12/30/13 to [facility] (fx: [phone]) on 01/20/14. documented in this encounter Plan of Treatment Not on filedocumented as of this encounter Visit Diagnoses Not on filedocumented in this encounter"
--- OUTSIDE RECORDS SUMMARY | ~2019-12-21 | XMS | Encounter Summary ---
Demographics + + + | Address | [address] | | | [place] [address] | + + + | Home Phone [...] | | | | | [place] [address] | | + + + + + | Thania Mallory | ECON | [address] | | | | | [place] [address] | | + + + + + | Deidra Weldon | ECON | [address] | | | | | [place] | | | | | [address] | | + + + + + Care Team Providers + +------+ + | Care Bench Assembler Name | Role | Phone | [...] [place] | | | | | | [place], [place] | | | | | | [address] | | | | | | [phone] | | | | | | | | +--------+ + + + + documented as of this encounter Visit Diagnoses Not on filedocumented in this encounter"
--- OUTSIDE RECORDS SUMMARY | ~2019-12-21 | XMS | Encounter Summary ---
Demographics + + + | Address | [address] | | | [place] [address] | + + + | Home Phone [...] Team Providers + +------+ + | Care Wallpaper Hanger Helper Name | Role | Phone | [...] | | | | [address] | [place], [place] | [place], | | | | | stage renal | [address] | [place] [address] | | | | | disease | Phone: | Phone: | | | | | ([facility]) | [phone] | [phone] | | | | | Infection | Fax: | Fax: | | | | | and | [phone] | [phone] | | | | | inflammatory | [...] | Off-Site | [facility] | ConradoShravanJorje | Anemia in ESRD | | 2013 | Visit | NEPHROLOGY [address] | M, DO [address] | (end-stage renal | | | | [address] | [address] [place] | disease) ([facility]) | | | | [place], [place] | [place] [address] | (Primary Dx); ESRD | | | | [address] | [phone] | (end stage renal | | | | [phone] | | disease) ([facility]) | +--------+ + + + [...] encounter Progress Notes Jorje Camp DO - 11/16/2013 1:47 PM PDT Subjective: [...] matriculating well through her senior year of [employer] and enjoys her school. Outpatient Prescriptions Marked as Taking for the 10/28/13 encounter (Off-Site Visit) with Camille Camp DO Medication Sig Dispense Refill cholecalciferol (VITAMIN D-3) 1,000 units tablet Take 1,000 Units by mouth Daily. cinacalcet (SENSIPAR) 30 mg tablet Take 30 mg by mouth Daily. [DISCONTINUED] Doxercalciferol (HECTOROL IV) Inject 1 mcg into the vein Three times a w kotlik. Epoetin Andres (EPOGEN IJ) 4,400 Units by [...] excellent candidate for a renal allograft. CC: [facility], [facility] documented in thi s encounter [...]
--- OUTSIDE RECORDS SUMMARY | ~2019-12-21 | XMS | Encounter Summary ---
Demographics + + + | Address | [address] | | | [place] [address] | + + + | Home Phone [...] | Author | [facility] | | | and [place] | + + + | Organization | [facility] | | | [...] Team Providers + +------+ + | Care Record Press Tender Name | Role | Phone [...] Encounter | CONVERSION | MD Emanuel [address] | | | | | [address]PART[address] | [address] | [address] | [place], [place] | | | | | [place], [place] | [address] | | | | | [address] | [phone] | | | | | [phone] | | | +--------+ + + + [...]
--- OUTSIDE RECORDS SUMMARY | ~2019-12-21 | XMS | Encounter Summary ---
Demographics + + + | Address | [address] | | | [place] [address] | + + + | Home Phone [...] | | | | | [place] [address] | | + + + + + | Thania Mallory | ECON | [address] | | | | | [place] [address] | | + + + + + | Deidra Weldon | ECON | [address] | | | | | [place] | | | | | [address] | | + + + + + Care Team Providers + +------+ + | Care Draw Operator Name | Role | Phone | [...] | | | | [address] | [facility] | | | | | [address] [facility], | [place], [place] | | | | | [place] [address] | [address] | | | | | [phone] | | | +--------+ + + + [...] | | | | | | [place], [place] | | | | | | [address] | | | | | | [phone] | | | | | | | | +--------+ + + + + documented as of this encounter Visit Diagnoses Not on filedocumented in this encounter"
--- OUTSIDE RECORDS SUMMARY | ~2019-12-21 | XMS | Encounter Summary ---
Demographics + + + | Address | [address] | | | [place] [address] | + + + | Home Phone [...] | | | | | [place] [address] | | + + + + + | Thania Mallory | ECON | [address] | | | | | [place] [address] | | + + + + + | Deidra Weldon | ECON | [address] | | | | | [place] | | | | | [address] | | + + + + + Care Team Providers + +------+ + | Care Orchard Worker Name | Role | Phone | [...] on | | | | [address] [place], | [place], [place] | [place] | | | | [place] [address] | [address] | care plan) | | | | [phone] | | | +--------+ + + + [...] - Mariza Hsu - 01/18/2013 4:18 PM [id number] (3:00 pm) -Rece ived call from pt, [...] of her need to stay in the [facility] area for one month following the [...] talking about support around her home in [place]. I reminded pt of our private conversation [...] as I reviewed a typical car e live in caregiver role after in practical ways including rides, emotional support, pharmacy, labs and communication with doctors. Deidra says they have been approved the [facility] funds which will a ssist greatly in [...] to be as solid as andria mueller. Deidra appreciated the urmila conversation and says they [...] up with the billie ibanez next week. Mariza Hsu, TAPE DUPLICATOR, PIPE ORGAN BUILDER Pediatric Renal Transplant Acquisition Professional pg. #[phone] documented in this en counter Plan of Treatment +--------+ + + + + | Date | Type | Specialty | Care Team | Description | +--------+ + + + + | 05/04/ | Hospital | Adult Acute Care | El Starr MD | | | 2022 | Encounter | | [address] | | | | | | [place], [place] | | | | | | [address] | | | | | | [phone] | | | | | | | | +--------+ + + + + documented as of this encounter Visit Diagnoses Not on filedocumented in this encounter
--- OUTSIDE RECORDS SUMMARY | ~2019-12-21 | XMS | Encounter Summary ---
Demographics + + + | Address | [address] | | | [place] [address] | + + + | Home Phone [...] Author | [facility] | | | and [place] | + + + | Organization | [facility] | | [...] Providers + +------+ + | Care Safety Council Director Name | Role | Phone | [...] + + | 12/19/ | Telephone | [facility] | George Torres RN | Congestive Heart | | 2019 | | [address] | | Failure (Reviewed | | | | [place] | | for CHF Quality | | | | [address] | | Measures) | | | | [phone] | | | +--------+ + + + [...]
--- OUTSIDE RECORDS SUMMARY | ~2019-12-21 | XMS | Encounter Summary ---
Demographics + + + | Address | [address] | | | [place] [address] | + + + | Home Phone [...] | | | | | [place] [address] | | + + + + + | Thania Mallory | ECON | [address] | | | | | [place] [address] | | + + + + + | Deidra Weldon | ECON | [address] | | | | | [place] | | | | | [address] | | + + + + + Care Team Providers + +------+ + | Care Supervisor Paste Plant Name | Role | Phone | + [...] | | | | [address] [facility] [facility] | [facility] | | | | | [address] [facility], | [place], [place] | | | | | [place] [address] | [address] | | | | | [phone] | | | +--------+ + + + [...] | | | | | | [place] | | | | | | [address] | | | | | | [phone] | | | | | | | | +--------+ + + + + documented as of this encounter Visit Diagnoses Not on filedocumented in this encounter"
--- OUTSIDE RECORDS SUMMARY | ~2019-12-21 | XMS | Encounter Summary ---
Demographics + + + | Address | [address] | | | [place] [address] | + + + | Home Phone [...] Providers + +------+ + | Care Scallop Binder Name | Role | Phone | [...] [address] [place] | [place] [address] | | | | | [address] [place], [place] | [phone] | | | | | [address] | | | | | | [phone] | | | +--------+ + + + [...]
--- OUTSIDE RECORDS SUMMARY | ~2019-12-21 | XMS | Encounter Summary ---
Demographics + + + | Address | [address] | | | [place] [address] | + + + | Home Phone [...] | | | | | [place] [address] | | + + + + + | Thania Mallory | ECON | [address] | | | | | [place] [address] | | + + + + + | Deidra Weldon | ECON | [address] | | | | | [place] | | | | | [address] | | + + + + + Care Team Providers + +------+ + | Care College Intern Name | Role | Phone | [...] | Update (Evaluation | | | | [address] | [address] | Scheduled) | | | | [address] [place], | [place], [place] | | | | | [place] [address] | [address] | | | | | [phone] | [phone] | | | | | | | [...] 2022 | Encounter | | [address] | | | | | | [place], [place] | | | | | | [address] | | | | | | [phone] | | | | | | | | +--------+ + + + + documented as of this encounter Visit Diagnoses Not on filedocumented in this encounter"
--- OUTSIDE RECORDS SUMMARY | ~2019-12-21 | XMS | Encounter Summary ---
Demographics + + + | Address | [address] | | | [place] [address] | + + + | Home Phone [...] | Author | [facility] | | | and [place] | + + + | Organization | [facility] | | | [...] Providers + +------+ + | [employer] Name | Role | Phone | + [...] [address] | | | | | [place], [place] | [place] [address] | | | | | [address] | [phone] | | | | | [phone] | | | +--------+---------+ + + + [...]
--- OUTSIDE RECORDS SUMMARY | ~2019-12-21 | XMS | Encounter Summary ---
Demographics + + + | Address | [address] | | | [place] [address] | + + + | Home Phone [...] | | | | | [place] [address] | | + + + + + | Thania Mallory | ECON | [address] | | | | | [place] [address] | | + + + + + | Deidra Weldon | ECON | [address] | | | | | [place] | | | | | [address] | | + + + + + Care Team Providers + +------+ + | Care Audio Visual Aide Name | Role | Phone | [...] | | | [place], | [place] [address] | | | | | [place] [address] | [phone] | | | | | | | [...] | | | | | | [place], [place] | | | | | | [address] | | | | | | [phone] | | | | | | | [...] [facility] - | [address], | [place] [address] | | | IMMUNOGENETICS/TRANS | [address] | | | | PLANT LABORATORY | | | | + + + + + documented in this encounter Visit Diagnoses Not on filedocumented in this encounter"
--- OUTSIDE RECORDS SUMMARY | ~2019-12-21 | XMS | Encounter Summary ---
Demographics + + + | Address | [address] | | | [place] [address] | + + + | Home Phone [...] | | | | | [place] [address] | | + + + + + | Thania Mallory | ECON | [address] | | | | | [place] [address] | | + + + + + | Deidra Weldon | ECON | [address] | | | | | [place] | | | | | [address] | | + + + + + Care Team Providers + +------+ + | Care Bottom Painter Name | Role | Phone | [...] updated) | | | | Caro Chan [place], | [place], [place] | | | | | [place] [address] | [address] | | | | | [phone] | [phone] | | | | | | | [...] | | | | | | [place], [place] | | | | | | [address] | | | | | | [phone] | | | | | | | | +--------+ + + + + documented as of this encounter Visit Diagnoses Not on filedocumented in this encounter"
--- OUTSIDE RECORDS SUMMARY | ~2019-12-21 | XMS | Encounter Summary ---
Demographics + + + | Address | [address] | | | [place] [address] | + + + | Home Phone [...] | Author | [facility] | | | and [place] | + + + | Organization | [facility] | | [...] Providers + +------+ + | Care Dip Lube Operator Name | Role | Phone | [...] [address] | renal disease) ([facility]) | | | | [address] | [address] [place] | (Primary Dx); | | | | [place], [place] | [place] [address] | Anemia in ESRD | | | | [address] | [phone] | (end-stage renal | | | | [phone] | | disease) ([facility] [...] into the vein Three times a w morongo. iron sucrose (VENOFER) 20 mg/mL injection Inject [...] the Nephrology Team in 2 weeks. CC: [place] Fina Joy MD, Renal Transplant Clinic, [facility] signed by Jorje Camp DO at [...]
--- OUTSIDE RECORDS SUMMARY | ~2019-12-21 | XMS | Encounter Summary ---
Demographics + + + | Address | [address] | | | [place] [address] | + + + | Home Phone [...] Team Providers + +------+ + | Care Clerk Manager Name | Role | Phone | [...] [address] [place] | | | | | [place], [place] | [place] [address] | | | | | [address] | [phone] | | | | | [phone] | | | +--------+ + + + [...] PM PDTManually faxed demographic sheet, copy of [employer] ce cards, progress note from 04/28/14 and 02/24/14 on 05/29/14 to Manny Whaley MD for up coming appointment. docume nted in this encounter Plan of Treatment Not on filedocumented as of this encounter Visit Diagnoses Not on filedocumented in this encounter"
--- OUTSIDE RECORDS SUMMARY | ~2019-12-21 | XMS | Encounter Summary ---
Demographics + + + | Address | [address] | | | [place] [address] | + + + | Home Phone [...] | | | | | [place] [address] | | + + + + + | Thania Mallory | ECON | [address] | | | | | [place] [address] | | + + + + + | Deidra Weldon | ECON | [address] | | | | | [place] | | | | | [address] | | + + + + + Care Team Providers + +------+ + | Care Flare Stitcher Name | Role | Phone | [...] to | | | | Caro Chan [place], | [place], [place] | contact pt re move | | | | [place] [address] | [address] | and new PAF as | | | | [phone] | | listed) | +--------+ + + [...] Denise | | | | | | [place], [place] | | | | | | [address] | | | | | | [phone] | | | | | | | | +--------+ + + + + documented as of this encounter Visit Diagnoses Not on filedocumented in this encounter"
--- OUTSIDE RECORDS SUMMARY | ~2019-12-21 | XMS | Encounter Summary ---
Demographics + + + | Address | [address] | | | [place] [address] | + + + | Home Phone [...] Team Providers + +------+ + | Care Sofa Inspector Name | Role | Phone | [...] | | | | 21) End | [place], [place] | [place], | | | | | stage renal | [address] | [place] [address] | | | | | disease | Phone: | Phone: | | | | | ([facility]) | [phone] | [phone] | | | | | Infection | Fax: | Fax: | | | | | and | [phone] | [phone] | | | | | inflammatory | | | | | | | reaction | | | | | | | due to | | | | | | | peritoneal | | | | | | | dialysis | | | | | | | catheter | | | | | | | Procedures | | | | | | | ME OFFICE | | | | | | [...] DO [address] | renal disease) ([facility]) | | | | [address] | [address] [place] | (Primary Dx); | | | | [place], [place] | [place] [address] | Anemia in ESRD | | | | [address] | [phone] | (end-stage renal | | | | [phone] | | disease) ([facility]) | [...] Outpatient Prescriptions Marked as Taking for the 2/23/15 encounter (Off-Site Visit) with Camille Camp DO [...] try walking at least 30 minutes daily, ketan lang consuming a diet rich in high biological [...] recheck her Hb in one week. CC: [place] Fina Joy MD, Renal Transplant Clinic, [facility] Blake Chavarria MD, FACS documented in thi s encounter Plan of Treatment Not on filedocumented as of this encounter Procedures + +--------+ + + + | Procedure Name | Priori | Date/Time | Associated Diagnosis | Comments | | | ty | | | | + +--------+ + + + | LABS - EXTERNAL SCAN | | 06/11/2014 | | | | | | 12:00 AM | | | | | | PDT | | | + +--------+ + + + documented in this encounter Visit Diagnoses + + | Diagnosis | + + | ESRD (end stage renal disease) ([facility]) - Primary End stage renal disease | + + | Anemia in ESRD (end-stage renal disease) ([facility]) Anemia in chronic kidney disease | + + documented in this encounter"
--- OUTSIDE RECORDS SUMMARY | ~2019-12-21 | XMS | Encounter Summary ---
Demographics + + + | Address | [address] | | | [place] [address] | + + + | Home Phone [...] Author | [facility] [...] Providers + +------+ + | Care Fire Boat Engineer Name | Role | Phone | [...] Provider Unknown | | | | | [place], [place] | [phone] | | | | | [address] | (Fax) | | | | | [phone] | | | +--------+ + + + [...]
--- OUTSIDE RECORDS SUMMARY | ~2019-12-21 | XMS | Encounter Summary ---
Demographics + + + | Address | [address] | | | [place] [address] | + + + | Home Phone [...] | | | | | [place] [address] | | + + + + + | Thania Mallory | ECON | [address] | | | | | [place] [address] | | + + + + + | Deidra Weldon | ECON | [address] | | | | | [place] | | | | | [address] | | + + + + + Care Team Providers + +------+ + | Care Transit Mixer Driver Name | Role | Phone | [...] | [address] | [facility] | referral) | | | | Caro Chan [place], | [place], [place] | | | | | [place] [address] | [address] | | | | | [phone] | | | +--------+ + + + [...] Denise | | | | | | [place] | | | | | | [address] | | | | | | [phone] | | | | | | | | +--------+ + + + + documented as of this encounter Visit Diagnoses Not on filedocumented in this encounter"
--- OUTSIDE RECORDS SUMMARY | ~2019-12-21 | XMS | Encounter Summary ---
Demographics + + + | Address | [address] | | | [place] [address] | + + + | Home Phone [...] + +------+ + | Care Workers Compensation Paralegal Name | Role | Phone | [...] | | | | 21) End | [place], [place] | [place], | | | | | stage renal | [address] | [place] [address] | | | | | disease | Phone: | Phone: | | | | | ([facility]) | [phone] | [phone] | | | | | Infection | Fax: | Fax: | | | | | and | [phone] | [phone] | | | | | inflammatory | [...] [address] | renal disease) ([facility]) | | | | [address] | [address] [place] | (Primary Dx); | | | | [place], [place] | [place] [address] | Anemia in ESRD | | | | [address] | [phone] | (end-stage renal | | | | [phone] | | disease) ([facility]) | +--------+ + + + [...] that she is working very closely with [facility] for 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 She states that he is a zero mismatch, but is being screened for Hypertens ion. Outpatient Prescriptions Marked as Taking for the 12/30/13 encounter (Off-Site Visit) with Jorje Camp, DO [...] excellent candidate from her visits here at [facility]. 6. Anemia--Will need to hold the EPO until the Hb is < 11.0 g/dl, while rechecking the Hb weekly. Plan: 1. Will continue to follow her PTH quarterly without Hectorol Rx. 2. Hold the EPO as above, until the Hb is < 11.0 g/dl. 3. Will try to connect with her Transplant Formula Clerk at [facility], about re lative timeline of her allograft date. 4. She will follow with Dr. Ibarra in 2 weeks. CC: [place] Fina Joy MD, Renal Transplant Clinic, [facility] documented in thi s encounter Plan of Treatment Not on filedocumented as of this encounter Visit Diagnoses + + | Diagnosis | + + | ESRD (end stage renal disease) ([facility]) - Primary End stage renal disease | + + | Anemia in ESRD (end-stage renal disease) ([facility]) Anemia in chronic kidney disease | + + documented in this encounter"
--- OUTSIDE RECORDS SUMMARY | ~2019-12-21 | XMS | Encounter Summary ---
Demographics + + + | Address | [address] | | | [place] [address] | + + + | Home Phone [...] Team Providers + +------+ + | Care Sericulturist Name | Role | Phone | + [...] | | | [address] [place] | [place] [address] | | | | | [place], [place] | [phone] | | | | | [address] | | | | | | [phone] | | | +--------+ + + + [...]
--- OUTSIDE RECORDS SUMMARY | ~2019-12-21 | XMS | Encounter Summary ---
Demographics + + + | Address | [address] | | | [place] [address] | + + + | Home Phone [...] | Author | [facility] | | | and [place] | + + + | Organization | [facility] | | [...] Providers + +------+ + | Care Junior Java Developer Name | Role | Phone | [...] | ([facility]) | [address] | [address] | | | | | Anemia in | [place], [place] | [place], | | | | | ESRD | [address] | [place] [address] | | | | | (end-stage | Phone: | Phone: | | | | | renal | [phone] | [phone] | | | | | disease) | Fax: | Fax: | | | | | ([facility]) | [phone] | [phone] | | | | | Procedures | [...] [address] | renal disease) ([facility]) | | | | [address] | [address] [place] | (Primary Dx) | | | | [place], [place] | [place] [address] | | | | | [address] | [phone] | | | | | [phone] | | | +--------+ + + + [...] parathyroidectomy she should let myself or the battery charger no. She will be rechecked in 2 weeks. : [facility] documented in t his encounter Plan of Treatment Not on filedocumented as of this encounter Visit Diagnoses + + | Diagnosis | + + | ESRD (end stage renal disease) (HCC) - Primary End stage renal disease | + + documented in this encounter"
--- OUTSIDE RECORDS SUMMARY | ~2019-12-21 | XMS | Encounter Summary ---
Demographics + + + | Address | [address] | | | [place] [address] | + + + | Home Phone [...] Team Providers + +------+ + | Care Budget Examiner Name | Role | Phone | [...] | | | | Anemia in | [place], [place] | [place], | | | | | ESRD | [address] | [place] [address] | | | | | (end-stage | Phone: | Phone: | | | | | renal | [phone] | [phone] | | | | | disease) | Fax: | Fax: | | | | | ([facility]) | [phone] | [phone] | | | | | Procedures | | | | | | | [place] OFFICE | | | | | | [...] | (Primary Dx) | | | | [place], [place] | [place] [address] | | | | | [address] | [phone] | | | | | [phone] | | | +--------+ + + + [...] maturity level is the main deterrent? CC: [place] Fina documented in thi s encounter Plan of Treatment Not on filedocumented as of this encounter Visit Diagnoses + + | Diagnosis | + + | ESRD (end stage renal disease) (HCC) - Primary End stage renal disease | + + documented in this encounter"
--- OUTSIDE RECORDS SUMMARY | ~2019-12-21 | XMS | Encounter Summary ---
Demographics + + + | Address | [address] | | | [place] [address] | + + + | Home Phone [...] Team Providers + +------+ + | Care Reading Recovery Teacher Name | Role | Phone | [...] + + | 07/18/ | Telephone | [facility] | Carolina Mahmood DO | Other (scheduling) | | 2020 | | [facility] [place] | [address] | | | | | [address] | [address] [place], [place] | | | | | [place], [place] | [address] | | | | | [address] | | | | | | [phone] | | | +--------+ + + + [...]
--- OUTSIDE RECORDS SUMMARY | ~2019-12-21 | XMS | Encounter Summary ---
Demographics + + + | Address | [address] | | | [place] [address] | + + + | Home Phone [...] | | | | | [place] [address] | | + + + + + | Thania Mallory | ECON | [address] | | | | | [place] [address] | | + + + + + | Deidra Weldon | ECON | [address] | | | | | [place] | | | | | [address] | | + + + + + Care Team Providers + +------+ + | Care Lunchroom Attendant Name | Role | Phone | [...] | | | [address] [place], | [place], [place] | | | | | [place] [address] | [address] | | | | | [phone] | | | +--------+ + + + [...] | | | | | | [place] | | | | | | [address] | | | | | | [phone] | | | | | | | | +--------+ + + + + documented as of this encounter Visit Diagnoses Not on filedocumented in this encounter"
--- OUTSIDE RECORDS SUMMARY | ~2019-12-21 | XMS | Encounter Summary ---
Demographics + + + | Address | [address] | | | [place] [address] | + + + | Home Phone [...] Team Providers + +------+ + | Care Discharge Planner Name | Role | Phone | [...] [address] [place] | | | | | [place], [place] | [place] [address] | | | | | [address] | [phone] | | | | | [phone] | | | +--------+ + + + [...] in her mid left upper arm AVF. VICE PRESIDENT OF ENGINEERING today = 230 mmHg. In view of this will start her on ASA 81 mg, QD, and Plavix 75 mg, daily for prevention of AVF thrombosis, given the former indwelling stent. She was called by pretzel cookerElisabeth SAMUELS to begin above. : [facility] documented in this encounter Plan of Treatment Not on filedocumented as of this encounter Visit Diagnoses Not on filedocumented in this encounter
--- OUTSIDE RECORDS SUMMARY | ~2019-12-21 | XMS | Encounter Summary ---
Demographics + + + | Address | [address] | | | [place] [address] | + + + | Home Phone [...] Author | [facility] | | | and [place] | + + + | Organization | [facility] | | | and [...] Team Providers + +------+ + | Care Bumper And Painter Name | Role | Phone | + +------+ + PCP | Unavailable | + +------+ + Encounter Details +--------+ + + + + | Date | Type | Department | Care Team | Description | +--------+ + + + + | 10/31/ | Hospital | [facility] | Conversion | ESRD (end stage | | 2015 | Encounter | CENTER CV INTRA OP | Transaction, | renal disease) on | | | | [address] | Provider Unknown | dialysis ([facility]) | | | | [place], [place] | [phone] | | | | | [address] | | | | | | [phone] | Colten Hutchins MD | | | | | | [address] | | | | | | [place], [place] | | | | | | [address] | | | | | | | [...] Note by Bev Carroll RN at 10/31/14 7206 Author: Bev Carroll RN Service: Interventional Radiology Author Type: Registered Nu rse Filed: 10/31/14 1737 Date of Service: 10/31/141734 Status: Signed Assistant Controller: Bev Carroll RN (Registered Nurse) Sutures removed [...] Progress Note by Bev Carroll RN at 10/31/141649 Author: Bev Carroll RN Service: Interventional Radiology Author Type: Registered Nu rse Filed: 10/31/141649 Date of Service: 10/31/141649 Status: Signed Assistant Controller: Bev Carroll RN (Registered Nurse) Attempted removal of suture/flowswitch, but immediately started bleeding at OP site, will t ry again in 30 minutes. docume nted in this encounter Consult Notes Jigar [id number], MD - 10/31/2014 11:49 AM PDTFormatting of this note might be differen t from the original. Consult* by Colten Hutchins MD PhD at 10/31/14 4685 Author: Colten Hutchins MD PhD Service: Interventional Radiology Author Type: Physician Filed: 10/31/14 1222 Date of Service: 10/31/14 1149 Status: Signed Assistant Controller: Colten Hutchins MD PhD (Physician) Vascular & [...] to the nearest ER. She presented to [facility] where duplex ultrasound was performed demonstrating occlusion of the fistula. I had the im ages pushed to [facility] PACS and reviewed the images. She presents today for fistula declot and possible dialysis catheter placement. Hospital Problem List: Patient Active Problem List Diagnosis HSP (Henoch Schonlein purpura) ([facility]) ESRD on hemodialysis ([facility]) Review of Systems: Review of Systems Constitutional: [...] purpura) nephritis Hypertension Clotted dialysis access ([facility]) 2014 ESRD (end stage renal disease) ([facility]) Anemia Past Surgical History: Past Surgical History Procedure Laterality Date Av fistula placement Renal biopsy Laparoscopic peritoneal dialysis catheter insertion x2 Abdominal surgery Av fistula repair Left 03/07/2014 Procedure: AV FISTULA - GRAFT REPAIR/REVISION; Surgeon: Rik Simon MD; Location: [facility] OR; Service: Vascular; Laterality: Left; Declot graft Left 03/07/2014 Procedure: GRAFT - DECLOT; Surgeon: Rik Simon MD; Location: [facility] MAIN OR; Service: Va scular; Laterality: Left; Av fistula placement Left 04/08/2014 Procedure: AV FISTULA; Surgeon: Rik Simon MD; Location: [facility] MAIN OR; Service: Vascul ar; Laterality: Left; cephalic Dialysis fistula creation N/A 04/08/2014 Procedure: DIALYSIS CATHETER - INSERTION; Surgeon: Rik Simon MD; Location: [facility] MAIN O R; Service: Vascular; Laterality: N/A; tunneled catheter Laparoscopic peritoneal dialysis catheter insertion Right 07/2013 current dialysis access MWF dialysis Superficialization of av fistula Left 06/24/2014 Procedure: AV FISTULA - SUPERFICIALIZATION; Surgeon: Rik Simon MD; Location: [facility] MAIN OR; Service: Vascular; Laterality: Left; [...] prior perianastomotic stenoses. COMPARISON STUDIES: 08/21/2014 PRIMARY POLICE COMMUNICATIONS OPERATOR: Colten Hutchins MD, PhD, [facility] OPERATIONS: 1. Left upper ext remity fistulogram 2. Ultrasound-guided retrograde venous access 3. Limited diagnostic ult rasound left upper extremity 4. Left cephalic venoplasty with standard and cutting balloons . PROCEDURE: Informed consent was obtained from the patient. Continuous cardiac monitorin g was performed throughout the procedure. [facility]ious [facility] under my supervision. Sedation [...] to the area of stenosis. A 4 Guatemalan sheath was placed. Patient was heparinized. The [...] interventions do not emily well for the chcf patency. Consented for dialysis catheter if I [...] by Colten Hutchins MD PhD at 10/31/14 3991 Author: Colten Hutchins MD PhD Service: Interventional Radiology Author Type: Physician Filed: 10/31/14 8194 Date of Service: 10/31/14 1139 Status: Signed Assistant Controller: Colten Hutchins MD PhD (Physician) Interventional Radiology [...] | | yesterday COMPARISON STUDIES: 10/28/2014 PRIMARY POLICE COMMUNICATIONS OPERATOR: | | | Colten Hutchins MD, PhD, [facility] OPERATIONS: 1. Ultrasound-guided | | | [...] | microsheath were both exchanged for 6 [place] sheaths. A catheter was | | | [...] yesterday | | COMPARISON STUDIES: 10/28/2014 PRIMARY POLICE COMMUNICATIONS OPERATOR: Colten Hutchins MD, PhD, RPVI | [...] were both exchanged for 6 | | [place] sheaths. A catheter was advanced over a [...] access can be obtained. Electronically signed by oClten Hutchins MD on | | 10/31/2014 4:24 [...] | | yesterday COMPARISON STUDIES: 10/28/2014 PRIMARY POLICE COMMUNICATIONS OPERATOR: | | | Colten Hutchins MD, [...] | microsheath were both exchanged for 6 [place] sheaths. A catheter was | | | [...] yesterday | | COMPARISON STUDIES: 10/28/2014 PRIMARY POLICE COMMUNICATIONS OPERATOR: Coltne Hutchins MD, PhD, RPVI | | OPERATIONS:1. [...] were both exchanged for 6 | | [place] sheaths. A catheter was advanced over a [...] | | yesterday COMPARISON STUDIES: 10/28/2014 PRIMARY POLICE COMMUNICATIONS OPERATOR: | | | Colten Hutchins MD, [...] | microsheath were both exchanged for 6 [place] sheaths. A catheter was | | | [...] yesterday | | COMPARISON STUDIES: 10/28/2014 PRIMARY POLICE COMMUNICATIONS OPERATOR: Colten Hutchins MD, PhD, RPVI | [...] were both exchanged for 6 | | [place] sheaths. A catheter was advanced over a [...] | | yesterday COMPARISON STUDIES: 10/28/2014 PRIMARY POLICE COMMUNICATIONS OPERATOR: | | | Colten Hutchins MD, [...] | microsheath were both exchanged for 6 [place] sheaths. A catheter was | | | [...] yesterday | | COMPARISON STUDIES: 10/28/2014 PRIMARY POLICE COMMUNICATIONS OPERATOR: Colten Hutchins MD, PhD, RPVI | [...] were both exchanged for 6 | | [place] sheaths. A catheter was advanced over a [...]
--- OUTSIDE RECORDS SUMMARY | ~2019-12-21 | XMS | Encounter Summary ---
Demographics + + + | Address | [address] | | | [place] [address] | + + + | Home Phone [...] | | | | | [place] [address] | | + + + + + | Thania Mallory | ECON | [address] | | | | | [place] [address] | | + + + + + | Deidra Weldon | ECON | [address] | | | | | [place] | | | | | [address] | | + + + + + Care Team Providers + +------+ + | Care Wood Floor Layer Name | Role | Phone | [...] | | [address] | [facility] | screens) | | | | Caro [place], | [place], [place] | | | | | [place] [address] | [address] | | | | | [phone] | | | +--------+ + + + [...] Denise | | | | | | [place], [place] | | | | | | [address] | | | | | | [phone] | | | | | | | | +--------+ + + + + documented as of this encounter Visit Diagnoses Not on filedocumented in this encounter"
--- OUTSIDE RECORDS SUMMARY | ~2019-12-21 | XMS | Encounter Summary ---
Demographics + + + | Address | [address] | | | [place] [address] | + + + | Home Phone [...] | | | | | [place] [address] | | + + + + + | Thania Mallory | ECON | [address] | | | | | [place] [address] | | + + + + + | Deidra Weldon | ECON | [address] | | | | | [place] | | | | | [address] | | + + + + + Care Team Providers + +------+ + | Care Gunner Mate Name | Role | Phone | [...] | [address] | [address] [place], | | | | | [place], | [place] [address] | | | | | [place] [address] | | | | | | [phone] | | | +--------+ + + + [...] and post transplant care. She lives in .[place], [place] Financial Risks Identified: .None, I didn't s/w pt, (family) Insurance/Financial: Medicare & OHP Plus Bolt Loader Plan: Appears stable insurance documented in this encounter Plan of Treatment +--------+ + + + + | Date | Type | Specialty | Care Team | Description | +--------+ + + + + | 05/04/ | Hospital | Adult Acute Care | El Starr MD | | | 2022 | Encounter | | [address] | | | | | | [place], [place] | | | | | | [address] | | | | | | [phone] | | | | | | | | +--------+ + + + + documented as of this encounter Visit Diagnoses Not on filedocumented in this encounter"
--- OUTSIDE RECORDS SUMMARY | ~2019-12-21 | XMS | Encounter Summary ---
Demographics + + + | Address | [address] | | | [place] [address] | + + + | Home Phone [...] Team Providers + +------+ + | Care Store Clerk Cashier Name | Role | Phone | [...] | CONVERSION | MD Emanuel [address] [facility] [address] [facility] | | | | | DEPART[address] | [place] [address] | | | | [address] | [place], [place] | | | | | [place], [place] | [address] | | | | | [address] | [phone] | | | | | [phone] | | | +--------+ + + + [...]
--- OUTSIDE RECORDS SUMMARY | ~2019-12-21 | XMS | Encounter Summary ---
Demographics + + + | Address | [address] | | | [place] [address] | + + + | Home Phone [...] | | | | | [place] [address] | | + + + + + | Thania Mallory | ECON | [address] | | | | | [place] [address] | | + + + + + | Deidra Weldon | ECON | [address] | | | | | [place] | | | | | [address] | | + + + + + Care Team Providers + +------+ + | Care Senior It Specialist Name | Role | Phone | [...] Nephrology at | RN [address] | | | | | Alexander | [facility] | | | | | [facility] | [place], [place] | | | | | [address] | [address] | | | | | Alexander | | | | | | [facility], | | | | | | [address] [place] [address] | | | | | | [place], [place] | | | | | | [address] | | | | | | [phone] | | | +--------+ + + + [...] | | | | | | [place] | | | | | | [address] | | | | | | [phone] | | | | | | | | +--------+ + + + + documented as of this encounter Visit Diagnoses + + | Diagnosis | + + | 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
--- OUTSIDE RECORDS SUMMARY | ~2019-12-21 | XMS | Encounter Summary ---
Demographics + + + | Address | [address] | | | [place] [address] | + + + | Home Phone [...] Providers + +------+ + | Care Operations Developer Name | Role | Phone | [...] Encounter | CONVERSION | MD Emanuel [address] [facility] | | | | | [address]PART[address] | [place] [address] | | | | [address] | [place], [place] | | | | | [place], [place] | [address] | | | | | [address] | [phone] | | | | | [phone] | | | +--------+ + + + [...]
--- OUTSIDE RECORDS SUMMARY | ~2019-12-21 | XMS | Encounter Summary ---
Demographics + + + | Address | [address] | | | [place] [address] | + + + | Home Phone [...] + +------+ + | Care Head Of Business Development Name | Role | Phone | [...] [address] [place] | | | | | [place], [place] | [place] [address] | | | | | [address] | [phone] | | | | | [phone] | | | +--------+ + + + [...]
--- OUTSIDE RECORDS SUMMARY | ~2019-12-21 | XMS | Encounter Summary ---
Demographics + + + | Address | [address] | | | [place] [address] | + + + | Home Phone [...] | | | | | [place] [address] | | + + + + + | Thania Mallory | ECON | [address] | | | | | [place] [address] | | + + + + + | Deidra Weldon | ECON | [address] | | | | | [place] | | | | | [address] | | + + + + + Care Team Providers + +------+ + | Care Belly Packer Name | Role | Phone | [...] SSA) | | | | [place], | [place], [place] | | | | | [place] [address] | [address] | | | | | [phone] | | | +--------+ + + + [...] from pt who was asking for help compensation and benefits administrator she recently received from [employer] regarding her eligibility on-going for SSI. Per [...] [facility]. She believes she was receiving approximately $450 in SSI, however prior to recent move to own place, she was living with mom and friends and not paying rent f ormally. [place] encouraged pt to contact [facility] and let them know about her now paying rent so her award amount may increase to full $733 mo; also reminded her to give [facility] new address for mail. Pt says everything [...] come from [place]. Pt understands steps. SMILEY FANG will continue to follow patient. Mariza Hsu, TITLE COORDINATOR, DESIGN PRINTING MACHINE SET UP OPERATOR Renal Transplant Sanitary Landfill Operator pg. #[phone] documented in this en counter Plan of Treatment +--------+ + + + + | Date | Type | Specialty | Care Team | Description | +--------+ + + + + | 05/04/ | Hospital | Adult Acute Care | El Starr MD | | | 2022 | Encounter | | [address] | | | | | | [place] | | | | | | [address] | | | | | | [phone] | | | | | | | | +--------+ + + + + documented as of this encounter Visit Diagnoses Not on filedocumented in this encounter"
--- OUTSIDE RECORDS SUMMARY | ~2019-12-21 | XMS | Encounter Summary ---
Demographics + + + | Address | [address] | | | [place] [address] | + + + | Home Phone [...] | | | | | [place] [address] | | + + + + + | Thania Mallory | ECON | [address] | | | | | [place] [address] | | + + + + + | Deidra Weldon | ECON | [address] | | | | | [place] | | | | | [address] | | + + + + + Care Team Providers + +------+ + | Care Goat Farmer Name | Role | Phone | [...] | Transplant Services | RN [address] | | | | | [address] | [facility] | | | | | [place], | [place], [place] | | | | | [place] [address] | [address] | | | | | [phone] | | | +--------+ + + + [...] Denise | | | | | | [place] | | | | | | [address] | | | | | | [phone] | | | | | | | | +--------+ + + + + documented as of this encounter Visit Diagnoses Not on filedocumented in this encounter"
--- OUTSIDE RECORDS SUMMARY | ~2019-12-21 | XMS | Encounter Summary ---
Demographics + + + | Address | [address] | | | [place] [address] | + + + | Home Phone [...] | | | | | [place] [address] | | + + + + + | Thania Mallory | ECON | [address] | | | | | [place] [address] | | + + + + + | Deidra Weldon | ECON | [address] | | | | | [place] | | | | | [address] | | + + + + + [...] | purpura | [address] | [facility] [address] | | | | | (HCC) HSP | [place] | [address] | | | | | (Amelie | [address] | [place] | | | | | nlein | [place], [place] | Children's | | | | | purpura) | [address] | [facility] 7th | | | | | nephritis | Phone: | Floor | | | | | ([facility]) | [phone] | [place], [place] | | | | | Hemodialysis | Fax: | [address] | | | | | status | [phone] | Phone: | | | | | (HCC) | | [phone] | | | | | Chronic | | Fax: | | | | | kidney | | 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, | | | | | | | stage V | | | | | | | ([facility]) | | | | | | | [...] | | 2014 | Encounter | at [facility] | | | | | | [facility] | | | | | | [address] [facility] | | | | | | Alexander | | | | | | [facility] | | | | | | 8th [facility], | | | | | | [place] [address] | | | | | | [phone] | | | +--------+ + + + [...] | 2022 | Encounter | | [address] | | | | | | [place], [place] | | | | | | [address] | | | | | | [phone] | | | | | | | [...] PST Echocardiography Laboratory | | [address] | | [place] [address] | | ; | | [id number] | | | | Transthoracic Echocardiogram Report | | | | | | NAME: DARA WELDON Study Date: 01/20/2015 1:18:29 PM | | Order #: [id number] ACC #: [id number] | | | | | | : [...] on 01/20/2015 at 2:35:17 PM | | Purchasing Clerk: YARITZA KLINE RDCS | | | | | | cc: | | | | | | Modes utilized | | TTE [id number]; Spectral Doppler 06514; Color flow Doppler 02440; | | | | | | | | Final | + + + + + + + | Performing | Address | City/State/Zipcode | Phone Number | | Organization | | | | + + + + + | [facility] | [address] | [place], [place] | | | CARDIOLOGY | [address] | [address] | | + + + + + [...]
--- OUTSIDE RECORDS SUMMARY | ~2019-12-21 | XMS | Encounter Summary ---
Demographics + + + | Address | [address] | | | [place] [address] | + + + | Home Phone [...] Providers + +------+ + | Care Special Officer Automat Name | Role | Phone | + [...] [address] | renal disease) ([facility]) | | | | [address] | [address] [place] | (Primary Dx); | | | | [place], [place] | [place] [address] | Depression | | | | [address] | [phone] | | | | | [phone] | | | +--------+ + + + [...]
--- OUTSIDE RECORDS SUMMARY | ~2019-12-21 | XMS | Encounter Summary ---
Demographics + + + | Address | [address] | | | [place] [address] | + + + | Home Phone [...] | | | | | [place] [address] | | + + + + + | Thania Mallory | ECON | [address] | | | | | [place] [address] | | + + + + + | Deidra Weldon | ECON | [address] | | | | | [place] | | | | | [address] | | + + + + + Care Team Providers + +------+ + | Care Surveillance Inspector Name | Role | Phone | [...] | [address] | [place], | | | | | [place], | [place] [address] | | | | | [place] [address] | | | | | | [phone] | | | +--------+ + + + [...] of life; t ypes of kidney/pancreas transplants; [facility] 1 year actual and expected patient survival, [facility] 1 year actual and expected graft survival, National 1 year patient and graft survival; Medic are outcomes requirements are met by [facility]; the pretransplant evaluation process; absolute an d relative contraindications to transplant; living donor issues; donor criteria and the waiting list, CDC High Risk Donor; UNOS regulations including STATE HISTORICAL SOCIETY DIRECTOR, multiple listing, an d transfer of seniority; [...] [facility] | | | | | | [address] | | | | | | [phone] | | | | | | | | +--------+ + + + + documented as of this encounter Visit Diagnoses Not on filedocumented in this encounter"
--- OUTSIDE RECORDS SUMMARY | ~2019-12-21 | XMS | Encounter Summary ---
Demographics + + + | Address | [address] | | | [place] [address] | + + + | Home Phone [...] | | | | | [place] [address] | | + + + + + | Thania Mallory | ECON | [address] | | | | | [place] [address] | | + + + + + | Deidra Weldon | ECON | [address] | | | | | [place] | | | | | [address] | | + + + + + Care Team Providers + +------+ + | Care General Operations Manager Name | Role | Phone [...] Update | | | | Alexander | [facility] | | | | | [facility] | [place], [place] | | | | | [address] | [address] | | | | | Alexander | | | | | | [facility], | | | | | | [address] [place] [address] | | | | | | [place], [place] | | | | | | [address] | | | | | | [phone] | | | +--------+ + + + [...] Denise | | | | | | [place], [place] | | | | | | [address] | | | | | | [phone] | | | | | | | | +--------+ + + + + documented as of this encounter Visit Diagnoses Not on filedocumented in this encounter"
--- OUTSIDE RECORDS SUMMARY | ~2019-12-21 | XMS | Encounter Summary ---
Demographics + + + | Address | [address] | | | [place] [address] | + + + | Home Phone [...] | | | | | [place] [address] | | + + + + + | Thania Mallory | ECON | [address] | | | | | [place] [address] | | + + + + + | Deidra Weldon | ECON | [address] | | | | | [place] | | | | | [address] | | + + + + + Care Team Providers + +------+ + | Care Warehouse Director Name | Role | Phone | [...] change | | | | [address] [place], | [place], [place] | clinic appt) | | | | [place] [address] | [address] | | | | | [phone] | | | +--------+ + + + [...] Denise | | | | | | [place], [place] | | | | | | [address] | | | | | | [phone] | | | | | | | | +--------+ + + + + documented as of this encounter Visit Diagnoses Not on filedocumented in this encounter"
--- OUTSIDE RECORDS SUMMARY | ~2019-12-21 | XMS | Encounter Summary ---
Demographics + + + | Address | [address] | | | [place] [address] | + + + | Home Phone [...] | | | | | [place] [address] | | + + + + + | Thania Mallory | ECON | [address] | | | | | [place] [address] | | + + + + + | Deidra Weldon | ECON | [address] | | | | | [place] | | | | | [address] | | + + + + + Care Team Providers + +------+ + | Care Automotive Professional Name | Role | Phone | [...] lab/Provider | | | | [place], | [place], [place] | updated) | | | | [place] [address] | [address] | | | | | [phone] | [phone] | | | | | | | [...] Denise | | | | | | [place], [place] | | | | | | [address] | | | | | | [phone] | | | | | | | | +--------+ + + + + documented as of this encounter Visit Diagnoses Not on filedocumented in this encounter"
--- OUTSIDE RECORDS SUMMARY | ~2019-12-21 | XMS | Encounter Summary ---
Demographics + + + | Address | [address] | | | [place] [address] | + + + | Home Phone [...] | | | | | [place] [address] | | + + + + + | Thania Mallory | ECON | [address] | | | | | [place] [address] | | + + + + + | Deidra Weldon | ECON | [address] | | | | | [place] | | | | | [address] | | + + + + + Care Team Providers + +------+ + | Care Coding Validator Name | Role | Phone | + [...] | | | | | [place], | | | | | | [place] [address] | | | +--------+ + + + [...] Denise | | | | | | [place], [place] | | | | | | [address] | | | | | | [phone] | | | | | | | [...] [facility] - | [address] | [place] [address] | | | IMMUNOGENETICS/TRANS | [address] | | | | [facility] | | | | + + + + + documented in this encounter Visit Diagnoses Not on filedocumented in this encounter"
--- OUTSIDE RECORDS SUMMARY | ~2019-12-21 | XMS | Encounter Summary ---
Demographics + + + | Address | [address] | | | [place] [address] | + + + | Home Phone [...] | | | | | [place] [address] | | + + + + + | Thania Mallory | ECON | [address] | | | | | [place] [address] | | + + + + + | Deidra Weldon | ECON | [address] | | | | | [place] | | | | | [address] | | + + + + + Care Team Providers + +------+ + | Care Service Shop Foreman Name | Role | Phone | [...] | Nephrology at | MD Emanuel [address] [facility] | Requested (UDS) | | | | Alexander | [facility] | | | | | [facility] | [place], [place] | | | | | [address] | [address] | | | | | Alexander | [phone] | | | | | [facility], | | | | | | [address] [place] [address] | | | | | | [place], [place] | | | | | | [address] | | | | | | [phone] | | | +--------+ + + + [...] Denise | | | | | | [place], [place] | | | | | | [address] | | | | | | [phone] | | | | | | | | +--------+ + + + + documented as of this encounter Visit Diagnoses Not on filedocumented in this encounter"
--- OUTSIDE RECORDS SUMMARY | ~2019-12-21 | XMS | Encounter Summary ---
Demographics + + + | Address | [address] | | | [place] [address] | + + + | Home Phone [...] Providers + +------+ + | Care Manager Employee Relations Name | Role | Phone | [...] [place] | | | | | [place], [place] | [place] [address] | | | | | [address] | [phone] | | | | | [phone] | | | +--------+ + + + [...] verification form rec eived from Navin Casanova manager city, [facility] regarding housing, do s: 12/08/16. Sent to scan. P DTdocumented in this encounter Plan of Treatment Not on filedocumented as of this encounter Visit Diagnoses Not on filedocumented in this encounter"
--- OUTSIDE RECORDS SUMMARY | ~2019-12-21 | XMS | Encounter Summary ---
Demographics + + + | Address | [address] | | | [place] [address] | + + + | Home Phone [...] | | | | | [place] [address] | | + + + + + | Thania Mallory | ECON | [address] | | | | | [place] [address] | | + + + + + | Deidra Weldon | ECON | [address] | | | | | [place] | | | | | [address] | | + + + + + Care Team Providers + +------+ + | Care Scrubber Operator Name | Role | Phone | [...] [address] [facility], | [place], [place] | | | | | [place] [address] | [address] | | | | | [phone] | | | +--------+ + + + [...] documentation. El Starr MD Professor of Urology sheet metal assembler, Division of Abdominal Organ Transplantation elephone Encounter - [facility] Kelsi valdez RN - 02/19/2013 4:14 PM PSTDISREGARD PREVIOUS NOTE- ERRONEOUS ENCOUNTER Kidney Transplant Committee Review Decision and Recommendations Committee Date: 02/19/2013 Patient Name: Dara Weldon : 1995 Age: 17 y.o. Discussion Type: Present Chairing MD: El Starr MD Disciplines Present: Surgery Attending, Apparel Stock Checker, Pediatric Nephrologists, So cial Worker and Dietitian Transplant Nurse: Kelsi Martinez Referring Physician for Transplant: Sudhakar Joy [facility]: [facility] PD Decision: DEFERRED - Compliance contract must be upheld for three months then pt may procee d with transplant- represent not required Providers Intent: A2 into B: No SUPERVISOR YARD: No En Bloc: No CMV Negative Donor Only: No CDC High Risk: No High Risk Recipient: Yes Reason: Teenager, difficult family situation [place] Kidney Disease: Henoch-Schonlein Purpura Living Donor Implications: [...] be <50 yrs old, no DCD or SUPERVISOR YARD. 2. Only 1 DR mismatch 3. Alemtuzimab [...] El Starr MD Disciplines Present: Surgery Attending, Apparel Stock Checker, Pediatric Nephrologists, So cial Worker and Dietitian Transplant Nurse: Kelsi Martinez Referring Physician for Transplant: Sudhakar Joy [facility]: [facility] PD Decision: APPROVED Providers Intent: A2 into B: No SUPERVISOR YARD: No En Bloc: No CMV Negative Donor Only: No [facility] High Risk: No High Risk Recipient: Yes Reason: Teenager, overweight [place] Kidney Disease: Henoch-Schonlein Purpura Living Donor Implications: [...] be <50 yrs old, no DCD or SUPERVISOR YARD. 2. Only 1 DR mismatch 3. Alemtuzumab [...] Denise | | | | | | [place] | | | | | | [address] | | | | | | [phone] | | | | | | | | +--------+ + + + + documented as of this encounter Visit Diagnoses Not on filedocumented in this encounter"
--- OUTSIDE RECORDS SUMMARY | ~2019-12-21 | XMS | Encounter Summary ---
Demographics + + + | Address | [address] | | | [place] [address] | + + + | Home Phone [...] Providers + +------+ + | Care Data Entry Assistant Name | Role | Phone | [...] [place] | | | | | [place], [place] | [place] [address] | | | | | [address] | [phone] | | | | | [phone] | | | +--------+ + + + [...] 0.39 m/s | | | MV Dec [place]: 9.46 m/s2 MV DecT: 106.01 ms MV E Shahid: 1.00 | | | m/s MV E/A Ratio: 2.54 E/E' Sept: 23.82 E' Lat: 0.08 m/s | | | E' Sept: 0.04 m/s RAP: 15 mmHg RV S': 0.11 m/s RVSP: | | | 67.64 mmHg TR maxP.64 mmHg TR Vmax: 3.61 m/s | | | Search Engine Optimization Analyst: Authenticated by: René Noonan MD Report Date/Time: | | | -- 88_[id number]:15:25 | | + + + + + [...] (A-L): 31.60 | | ml/m2LAAs A2C: 18.56 [id number] A-L A2C: 58.49 mlLAESV MOD A2C: 54.57 mlLALs A2C: | | 5.00 cmLAAs A4C: 17.96 [id number] A-L A4C: 52.99 mlLAESV MOD A4C: 44.93 mlLALs A4C: | | 5.18 cmLAESV(MOD BP): 49.83 mlRAAs: 18.33 [id number] A-L: 57.01 mlRAESV MOD: | | 56.24 mlRALs: 5.02 cmTAPSE: 1.98 cmAV Env.Ti: 227.35 msAV maxP.22 mmHgAV | | meanP.25 mmHgAV Vmax: 1.59 m/Elizabeth Vmean: 1.06 m/Elizabeth VTI: 24.30 cmAVA Vmax: | | 2.68 cm2AVA (VTI): 2.73 mw7WDYJ Vmax: 0.00 cm2/m2AVAI (VTI): 0.00 cm2/m2LVOT | | Env.Ti: 210.72 msLVOT maxP.99 mmHgLVOT meanP.87 mmHgLVSI Dopp: 37.17 | | ml/m2LVSV Dopp: 66.54 mlLVOT Vmax: 1.41 m/sLVOT Vmean: 1.03 m/sLVOT VTI: 21.88 | | cmMV A Shahid: 0.39 m/sMV Dec [place]: 9.46 m/s2MV DecT: 106.01 msMV E Shahid: 1.00 | | m/sMV E/A Ratio: 2.54E/E' Sept: 23.82E' Lat: 0.08 m/sE' Sept: 0.04 m/sRAP: 15 | | mmHgRV S': 0.11 m/sRVSP: 67.64 mmHgTR maxP.64 mmHgTR Vmax: 3.61 m/s | | Search Engine Optimization Analyst:Authenticated by: René HARPEReport Date/Time: 99_[id number]_72:15:25 | | IMPRESSION: 1. Overall left ventricular [...] A Shahid: 0.39 m/s | |MV Dec [place]: 9.46 m/s2 | |MV DecT: 106.01 ms | |MV E Shahid: 1.00 m/s | |MV E/A Ratio: 2.54 | |E/E' Sept: 23.82 | |E' Lat: 0.08 m/s | |E' Sept: 0.04 m/s | |RAP: 15 mmHg | |RV S': 0.11 m/s | |RVSP: 67.64 mmHg | |TR maxP.64 mmHg | |TR Vmax: 3.61 m/s | | | |Search Engine Optimization Analyst: | |Authenticated by: René Noonan MD | |Report Date/Time: 16_[id number]_23:15:25 | | | |IMPRESSION: | |1. Overall [...]
--- OUTSIDE RECORDS SUMMARY | ~2019-12-21 | XMS | Encounter Summary ---
Demographics + + + | Address | [address] | | | [place] [address] | + + + | Home Phone [...] | | | | | [place] [address] | | + + + + + | Thania Mallory | ECON | [address] | | | | | [place] [address] | | + + + + + | Deidra Weldon | ECON | [address] | | | | | [place] | | | | | [address] | | + + + + + Care Team Providers + +------+ + | Care Linen Folder Name | Role | Phone | + +------+ + | Shahid Camargo MD | PCP | | + +------+ + Encounter Details +--------+ + + + + | Date | Type | Department | Care Team | Description | +--------+ + + + + | 12/20/ | Hospital | Radiology at [facility] | | | | 2012 | Encounter | [address] [facility] [address] | | | | | | [place] | | | | | | [facility], | | | | | | [address] [place] [address] | | | | | | [place], [place] | | | | | | [address] | | | | | | [phone] | | | +--------+ + + + [...] | | | | | [place], [place] | | | | | | [address] | | | | | | [phone] | | | | | | | [...] | | | | | standards [facility] | | | | | | Gilberto. [...]
--- OUTSIDE RECORDS SUMMARY | ~2019-12-21 | XMS | Encounter Summary ---
[...] | | | | | [place] [address] | | + + + + + | Thania Mallory | ECON | [address] | | | | | [place] [address] | | + + + + + | Deidra Weldon | ECON | [address] | | | | | [place] | | | | | [address] | | + + + + + Care Team Providers + +------+ + | Care Transfer Controller Name | Role | Phone | [...] | | [address] | [facility] | | | | | [place], | [place], [place] | | | | | [place] [address] | [address] | | | | | [phone] | | | +--------+ + + + [...] may be documented. Contacted [facility] [place] in [place] and reques wilmer immunization record and pt's 1603. Explained the transplant process to stepmother and s he asked appropriate questions. Currently the family has no potential living donors.Electro nically signed by Kelsi Martinez RN at 10/25/2012 10:54 AM PDTTelephone Encounter - [facility] systemKelsi RN - 10/25/2012 10:22 AM PDTReceived voice [...] Denise | | | | | | [place], [place] | | | | | | [address] | | | | | | [phone] | | | | | | | [...]
--- OUTSIDE RECORDS SUMMARY | ~2019-12-21 | XMS | Encounter Summary ---
Demographics + + + | Address | [address] | | | [place] [address] | + + + | Home Phone [...] | | | | | [place] [address] | | + + + + + | Thania Mallory | ECON | [address] | | | | | [place] [address] | | + + + + + | Deidra Weldon | ECON | [address] | | | | | [place] | | | | | [address] | | + + + + + Care Team Providers + +------+ + | Care Rougher Merchant Mill Name | Role | Phone | + [...] [facility] | Caro Chan | [place], | | | | | Allergic | [place], [place] | [place] | | | | | purpura | [address] | [address] | | | | | ([facility]) | Phone: | Phone: | | | | | | [phone] | [phone] | | | | | | Fax: | Fax: | | | | | | [phone] | [phone] | +--------+--------+ + + + + Encounter Details +--------+---------+ + + + | Date | Type | Department | Care Team | Description | +--------+---------+ + + + | 12/19/ | Office | Kidney Transplant | Clinic, [address] [address] | Patient on | | 2012 | Visit | at Physician's | [facility] | peritoneal dialysis | | | | [address] [facility] [place] | (HCC) (Primary Dx); | | | | [address] | [address] | Unspecified | | | | Physician's | | essential | | | | Pavilion, 2nd floor | | hypertension; HSP | | | | [place], [place] | | ([place] | | | | [address]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; | | | | [phone] | | Obesity (BMI | | | [...] on file Social History Narrative Lives in [place], [place] with father and step-mother; 2 dogs; [...] Selection Confer ence. El Starr MD lead shop operator, Division of Abdominal Organ Transplantation Professor of Urology CC: Sudhakar oJy MD [address] [place] [address] documented in this encoun ter Procedure Notes [...] Ave | | | | | | [place], [place] | | | | | | [address] | | | | | | [phone] | | | | | | | [...]
--- OUTSIDE RECORDS SUMMARY | ~2019-12-21 | XMS | Encounter Summary ---
Demographics + + + | Address | [address] | | | [place] [address] | + + + | Home Phone [...] Providers + +------+ + | Care Tire Setter Name | Role | Phone | + +------+ + | Tien Nicholson MD | PCP | | + +------+ + Encounter Details +--------+ + + + + | Date | Type | Department | Care Team | Description | +--------+ + + + + | 08/20/ | Hospital | [facility] | Ramón Dunn | Non-cardiogenic | | 2019 - | Encounter | [facility] | MD Juan Alberto [address] | pulmonary edema | | | | CARE FLOOR [address] [place], [place] | | | 08/23/ | | [address] | [address] | | | 2018 | | [place], [place] | | | | | | [address] | | | | | | [phone] | | | +--------+ + + + [...] 1300 Date of Service: 08/23/18818 Status: Signed Program Attendant: Paty Kline DO (Physician) Patient: Dara Wel[place] [...] presented to the emergency d epartment of [facility] in [place] on 08/21 for dyspnea and underwent right t horacentesis with removal of 2.5L of fluid. Patient was sent home after the procedure. Muriel rtly thereafter patient became very short of breath and started having pinkish frothy sputum . Patient also developed right-sided chest pain over area of thoracentesis. She returned t o emergency department of [facility]. Patient was tachycardic and short of b reath but was saturating well on room air. Chest x-ray showed pulmonary edema of right bridgette g but left lung was reportedly normal. Patient was transferred to [facility] for acute hypoxic respiratory failure and [...] Nicholson MD [address] [place] [address] Medication List CHANGE how you take these [...] Date of Service: 08/23/18 130 Status: Signed Program Attendant: Mitzy Schilling RN (Registered Nurse) Pt A&Ox4, [...] Date of Service: 08/23/18 114 Status: Signed Program Attendant: Patria Norman RN (Registered Nurse) CM placed call to Pts PCP and they will contact pt to schedule follow up appointment as gopal n as possible. CM placed call to [facility] Pulmonology to attempt to move pts [...] 1137 Date of Service: 08/23/181136 Status: Signed Program Attendant: Mitzy Schilling RN (Registered Nurse) Resumed care from ABRIL Carranza. Agree with assessments thus far. Will continue to monitor. Mitzy Schilling RN onver arturo Transaction, Provider Unknown - 08/23/2018 2:34 AM PDT Nurse Progress Note by Hannah Madrigal RN at 08/23/184 Author: Hannah Madrigal RN Service: (none) Author Type: Registered Nurse Filed: 08/23/18529 Date of Service: 08/23/18233 Status: Signed Program Attendant: Hannah Madrigal RN (Registered Nurse) VSS, pt [...] 08/22/181827 Date of Service: 08/22/181823 Status: Signed Program Attendant: Paco Macedo RN (Registered Nurse) Patient is [...] 08/22/181808 Date of Service: 08/22/181800 Status: Signed Program Attendant: Brent Greenberg () hydroelectric machinery mechanic appreciated. Pt sitting up in bed. Pt [...] to find a grief support group in [facility] where she lives. Chp affirmed this as an excellent idea. Chp assured pt of continuing g ood thoughts for pt. Pt thanked p for visit. Chaplain Brent Greenberg aty Sutherland DO - 08/22/2018 2:55 PM PDT Progress Notes by Paty Kline DO at 08/22/18 9091 Author: Paty Kline DO Service: Hospitalist Author Type: Physician Filed: 08/22/181656 Date of Service: 08/22/181454 Status: Addendum Program Attendant: Paty Kline DO (Physician) Related Notes: Original Note by Paty Kline DO (Physician) filed at 08/22/18 090 [facility] Service: Hospitalist Progress Note Hospital Day: [...] May 2018 presented to emergency department of [facility] in [place] this morning and underwent right thoracentesis. Patient was sent home after the procedure. However patient became very short of breath and started havi ng pinkish frothy sputum. Patient also developed right-sided chest pain over area of thorac entesis. Hence she returned to emergency department of [facility]. Patient w as tachycardic and short of breath but was saturating well on room air. Chest x-ray showed pulmonary edema of right lung but left lung was normal as per ED physician." Patient was transferred to [facility] for monitoring as she will need [...] HSP ([place] Schon[place] purpura) ESRD on hemodialysis ([facility]) Hyperkalemia Moderate to severe pulmonary hypertension (HCC) Chronic 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) Dilated cardiomyopathy (HCC) Acute hypoxemic respiratory failure (HCC) Pleural effusion Chronic right-sided heart failure (HCC) Anemia in ESRD (end-stage renal disease) ([facility]) ASSESSMENT & PLAN Non-cardiogenic pulmonary edema [...] 08/22/18932 Date of Service: 08/22/18928 Status: Signed Program Attendant: Jessica Martell RN (Registered Nurse) 08/22/18922 Discharge Planning Evaluation Admitting Diagnosis Non-cardiogenic pulmonary edema Readmission No Living Arrangements Alone Support Systems Friends/neighbors;Family members Type of Residence Private residence House type Apartment Bathrooms on 1st Floor 1-Full Independent with ADL's Yes Independent with Mobility Yes Home Care Services No Caregiver after Discharge No Mental Status Oriented Prior functional status independent Power of Tunneling Machine Operator No Anticipated Discharge Plan Post [...] concerns and states she uses hemodialysis at [facility] on Mon, Wed, Fri but denies [...] Note by Jaymie Tafoya RN at 08/22/18 4544 Author: Jaymie Tafoya RN Service: (none) Author Type: Registered Nurse Filed: 08/22/18 0436 Date of Service: 08/22/18433 Status: Signed Program Attendant: Jaymie Tafoya RN (Registered Nurse) Pt currently [...] Note by Luz Pablo RN at 08/21/18 1136 Author: Luz Pablo RN Service: (none) Author Type: Registered Nurse Filed: 08/21/181831 Date of Service: 08/21/181828 Status: Signed Program Attendant: Luz Pablo RN (Registered Nurse) Complains of rib/upper abdomen pain. Medicated, pain improved. Ambulating in room. HD today , 2.7L off. HD in a.m. At 0600. End of shift review complete. aty Sutherland DO - 08/21/2018 7:24 AM PDT Progress Notes by Paty Kline DO at 08/21/18723 Author: Paty Kline DO Service: Hospitalist Author Type: Physician Filed: 08/21/18 9385 Date of Service: 08/21/18723 Status: Signed Program Attendant: Paty Kline DO (Physician) [facility] Service: Hospitalist Progress Note Hospital Day: [...] May 2018 presented to emergency department of [facility] in [place] this morning and underwent right thoracentesis. Patient was sent home after the procedure. However patient became very short of breath and started havi ng pinkish frothy sputum. Patient also developed right-sided chest pain over area of thorac entesis. Hence she returned to emergency department of [facility]. Patient w as tachycardic and short of breath but was saturating well on room air. Chest x-ray showed pulmonary edema of right lung but left lung was normal as per ED physician." Patient was transferred to [facility] for monitoring as she will need [...] 0527 Date of Service: 08/21/18503 Status: Addendum Program Attendant: Anahy Springer RN (Registered Nurse) Related Notes: [...] 08/20/181901 Date of Service: 08/20/181901 Status: Signed Program Attendant: Kacy Moody RPH (Pharmacist) Clinical Pharmacy Note: [...] 08/20/181821 Date of Service: 08/20/181749 Status: Signed Program Attendant: Ramón Dunn MD (Physician) [facility] Service: Hospitalist Admission History & Physical Date of Admission: 08/20/2018 Requesting Physician: Dr. Villa, [facility] ED. Reason for Admission: Non cardiogenic pulmonary [...] May 2018 presented to emergency department of [facility] in [place] this morning and underwent right thoracentesis. Patient was s ent home after the procedure. However patient became very short of breath and started havin g pinkish frothy sputum. Patient also developed right-sided chest pain over area of thorace ntesis. Hence she returned to emergency department of [facility]. Patient wa s tachycardic and short of breath but was saturating well on room air. Chest x-ray showed p ulmonary edema of right lung but left lung was normal as per ED physician. S patient needed monitoring the hospital and was scheduled to have hemodialysis today and [facility] does not have facility for inpatient [...] FISTULA; Surgeon: Rik Simon MD; Location: [facility] MAIN OR; Service: Vascula r; Laterality: Left; cephalic AV FISTULA REPAIR Left 03/07/2014 Procedure: AV FISTULA - GRAFT REPAIR/REVISION; Surgeon: Rik Simon MD; Location: [facility] IN OR; Service: Vascular; Laterality: Left; DECLOT GRAFT Left 03/07/2014 Procedure: GRAFT - DECLOT; Surgeon: Rik Simon MD; Location: [facility] OR; Service: Vas cular; Laterality: Left; DIALYSIS [...] Social History Narrative Lives in [facility], [place], 2 wks ago fell at home [...] 1643 Date of Service: 08/21/181525 Status: Signed Program Attendant: Cliff Duarte MD (Physician) 8107/8107-1 Hospital Day: [...] failure and was recently hospital ized at [facility] with hypervolemia and right pleural effusion. She [...] for dialysis she was tra nsferred to [facility]. Nephrology consultation was requested by Dr. Dunn for evaluation and management of ESRD Associated with: fluid electrolyte acid base imbalances including hypervolemia. She came to [facility] late last night and could not be [...] times daily with meals. 9 06/01/19 Yes Darell Kowalski MD clopidogrel (PLAVIX) 75 MG tablet [...] was completed later after rounds. Dictation software, EDUonGo, was used which may contain error for [...] 08/23/18818 Date of Service: 08/23/18818 Status: Signed Program Attendant: Tere García RN (Registered Nurse) Problem: Pain Goal: Patient's pain/discomfort is manageable Assess and monitor patient's pain using appropriate pain scale. Collaborate with interdisci plinary team and initiate plan and interventions as ordered. Re-assess patient's pain level approximately 1-2 hours after pain management intervention. Premedicate as needed. Outcome: Progressing Complaints of 9/10 right lung, abdominal pain. [place] given Problem: Safety Goal: Patient will be [...] 08/22/182137 Date of Service: 08/22/182137 Status: Signed Program Attendant: Hannah Madrigal RN (Registered Nurse) Problem: Knowledge [...] Service: (none) Author Type: Registered Nurse Filed: 08/22/182 Date of Service: 08/22/181052 Status: Signed Program Attendant: Paco Macedo RN (Registered Nurse) Daily Care [...] 08/21/182036 Date of Service: 08/21/182036 Status: Signed Program Attendant: Jaymie Tafoya RN (Registered Nurse) Problem: Pain [...] 08/21/181241 Date of Service: 08/21/181241 Status: Signed Program Attendant: Luz Pablo RN (Registered Nurse) Pain Goal: [...] 08/20/182157 Date of Service: 08/20/182157 Status: Signed Program Attendant: Anahy Springer RN (Registered Nurse) Problem: Safety [...] 08/20/181748 Date of Service: 08/20/181748 Status: Signed Program Attendant: Delilah Alejandro RN (Registered Nurse) Problem: Safety [...] | | | | | | [address]ica [address];[place], [place] | | | | | | [address] | | | | + + + [...] | | performed at [facility], [address] | | | | | | [place] [place], | | | | | | [place] [address] | | | | | |MACRO | | | | | |Testing performed at [facility], [address] [place] [address] | | | | | | | [...] [place], | | | | | | [place] [address] | | | | + + + [...] | | | | | [place] [address] | | | | + + + [...] | | | | | | MDRD IDWV traceable | | | | | | equation.Testing | | | | | | performed at [facility], [address] | | | | | | [facility], | | | | | | [place] [address] | | | | + + + [...] | LAB | | | | [address];[place], [place] | | | | | | [address] | | | | + + + [...] performed at [facility];[address] | | | | | | [facility];[place], [place] | | | | | | [address] | | | | + + + [...]
--- OUTSIDE RECORDS SUMMARY | ~2019-12-21 | XMS | Encounter Summary ---
Demographics + + + | Address | [address] | | | [place] [address] | + + + | Home Phone [...] Team Providers + +------+ + | Care Multiple Launch Rocket System Crewmember Name | Role | Phone | + [...] ST | | | | | ([facility]) | [address] | [address] | | | | | Anemia in | [place], [place] | [place], | | | | | ESRD | [address] | [place] [address] | | | | | (end-stage | Phone: | Phone: | | | | | renal | [phone] | [phone] | | | | | disease) | Fax: | Fax: | | | | | ([facility]) | [phone] | [phone] | | | | | Procedures | | | | | | | CT ESRD | | | | | | [...] [address] | renal disease) ([facility]) | | | | [address] | [address] [place] | (Primary Dx) | | | | [place], [place] | [place] [address] | | | | | [address] | [phone] | | | | | [phone] | | | +--------+ + + + [...] Will recheck her in 2 weeks. : [place] Fina Alonso MD, PhD documented in thi s encounter Plan of Treatment Not on filedocumented as of this encounter Visit Diagnoses + + | Diagnosis | + + | ESRD (end stage renal disease) (HCC) - Primary End stage renal disease | + + documented in this encounter"
--- OUTSIDE RECORDS SUMMARY | ~2019-12-21 | XMS | Encounter Summary ---
Demographics + + + | Address | [address] | | | [place] [address] | + + + | Home Phone [...] Providers + +------+ + | Care Accounting Assistant Name | Role | Phone | [...] | | encounter | [place], | [place] [address] | | | | | ([facility]) | [place] [address] | Phone: | | | | | | Phone: | [phone] | | | | | | [phone] | Fax: | | | | | | Fax: | [phone] | | | | | | [phone] | | +--------+ + + + + [...] fistula | MD [address] | | | | | malfunction, | [address] | [place], | | | | | initial | [address] | [place] [address] | | | | | encounter | [place], | Phone: | | | | | ([facility]) | [place] [address] | [phone] | | | | | Procedures | Phone: | Fax: | | | | | IR Procedure | [phone] | [phone] | | | | | [address] | Fax: | | | | | | NEEDLE/CATH | [phone] | | | | | | A-V [...] [address] | [address] [place] | encounter ([facility]) | | | | [place], [place] | [place] [address] | (Primary Dx) | | | | [address] | [phone] | | | | | [phone] | | | +--------+ + + + [...]
--- OUTSIDE RECORDS SUMMARY | ~2019-12-21 | XMS | Encounter Summary ---
Demographics + + + | Address | [address] | | | [place] [address] | + + + | Home Phone [...] | | | | | [place] [address] | | + + + + + | Thania Mallory | ECON | [address] | | | | | [place] [address] | | + + + + + | Deidra Weldon | ECON | [address] | | | | | [place] | | | | | [address] | | + + + + + Care Team Providers + +------+ + | Care Hose Tender Name | Role | Phone | [...] [address] | [facility] | recommendations) | | | | [address] [place], | [place], [place] | | | | | [place] [address] | [address] | | | | | [phone] | | | +--------+ + + + [...] | | | | | | [place], [place] | | | | | | [address] | | | | | | [phone] | | | | | | | | +--------+ + + + + documented as of this encounter Visit Diagnoses Not on filedocumented in this encounter"
--- OUTSIDE RECORDS SUMMARY | ~2019-12-21 | XMS | Encounter Summary ---
Demographics + + + | Address | [address] | | | [place] [address] | + + + | Home Phone [...] Team Providers + +------+ + | Care Hydroelectric Machinery Mechanic Name | Role | Phone | + +------+ + PCP | Unavailable | + +------+ + Encounter Details +--------+ + + + + | Date | Type | Department | Care Team | Description | +--------+ + + + + | 07/09/ | Hospital | [facility] | Colten Hutchins MD | AV fistula | | 2017 | Encounter | [facility] | [address] | thrombosis, initial | | | | CLINICAL DECISION | [place]iel [place], [place] | encounter ([facility]) | | | | [address] | [address] | | | | | [place], [place] | | | | | | [address] | | | | | | [phone] | | | +--------+ + + + [...] 07/09/161821 Date of Service: 07/09/161820 Status: Signed Inseamer: Catherine Lenz RN (Registered Nurse) Patient stable [...] by Colten Hutchins MD PhD at 07/09/16 1194 Author: Colten Hutchins MD PhD Service: Interventional Radiology Author Type: Physician Filed: 07/09/16 1410 Date of Service: 07/09/16 6755 Status: Signed Inseamer: Colten Hutchins MD PhD (Physician) Vascular & [...] and he c alled the PCC at [facility] today. She has a contrast allergy. Hospital Problem List: Patient Active Problem List Diagnosis HSP (Henoch Schonlein purpura) ([facility]) ESRD on hemodialysis ([facility]) Review of Systems: Review of Systems Constitutional: Negative. HENT: Negative. Respiratory: Negative. Cardiovascular: Negative. Gastrointestinal: Negative. Genitourinary: Negative. Musculoskeletal: Negative. Skin: Negative. Endo/Heme/Allergies: Negative. All other systems negative. Code Status: Prior Past Medical History: Past Medical History Diagnosis Date HSP (Henoch-Schonlein purpura) nephritis Hypertension Clotted dialysis access ([facility]) 2014 ESRD (end stage renal disease) ([facility]) Anemia Past Surgical History: Past Surgical History Procedure Laterality Date Av fistula placement Renal biopsy Laparoscopic peritoneal dialysis catheter insertion x2 Abdominal surgery Laparoscopic peritoneal dialysis catheter insertion Right 07/2013 current dialysis access MWF dialysis Superficialization of av fistula Left 06/24/2014 Procedure: AV FISTULA - SUPERFICIALIZATION; Surgeon: Rik Simon MD; Location: [facility] MAIN OR; Service: Vascular; Laterality: Left; Av fistula placement Left 04/08/2014 Procedure: AV FISTULA; Surgeon: Rik Simon MD; Location: [facility] MAIN OR; Service: Vascul ar; Laterality: Left; cephalic Dialysis fistula creation N/A 04/08/2014 Procedure: DIALYSIS CATHETER - INSERTION; Surgeon: Rik Simon MD; Location: [facility] MAIN O R; Service: Vascular; Laterality: N/A; tunneled catheter Av fistula repair Left 03/07/2014 Procedure: AV FISTULA - GRAFT REPAIR/REVISION; Surgeon: Rik Simon MD; Location: [facility] OR; Service: Vascular; Laterality: Left; Declot graft Left 03/07/2014 Procedure: GRAFT - DECLOT; Surgeon: Rik Simon MD; Location: [facility] MAIN OR; Service: Va scular; [...] Date of Service: 07/09/16 1308 Status: Signed Inseamer: Sherry Weinstein RN (Registered Nurse) Pt reports last food or drink 07/08/16 at 2200. Sherry Weinstein RN 07/09/16 1308 onver arturo Transaction, Provider Unknown - 07/09/2016 1:00 PM PDT ED Notes by Sherry Weinstein RN at 07/09/16 1300 Author: Sherry Weinstein RN Service: (none) Author Type: Registered Nurse Filed: 07/09/16 1303 Date of Service: 07/09/16 1300 Status: Signed Inseamer: Sherry Weinstein RN (Registered Nurse) Dr. Wade at bedside. Pt states "my fistula is clotted." Reports having dialysis yesterda y and fistula working. Pt states "I think I slept on it wrong. If I cough I get a sharp pa in." No palpable thrill upon eval. Denies any fever/chills, n/v, SOB or CP. Sherry Weinstein RN 07/09/16 7602 Nicolleofhailee , Lawrence Evans DO - 07/09/2016 12:59 PM PDTFormatting of this note might be different from dari burnham original. ED Provider Notes by Lawrence Wade DO at 07/09/16 8625 Author: Lawrence Wade DO Service: Emergency Department Author Type: Physician Filed: 07/09/16 4712 Date of Service: 07/09/16 5496 Status: Signed Inseamer: Lawrence Wade DO (Physician) [facility] Department of Emergency Medicine 12:59 PM History of Present Illness Patient Identification Dara Weldon is a 21 y.o. female. Patient information was obtained from patient and parent. History/Exam limitations: none. Patient presented to the Emergency Department by: Car Chief Complaint Chief Complaint Patient presents with Vascular Access Problem "I need emergency surgery on my fistula" MWF dialysis pt with LUE fistula, concerned fist suagr is "clotted off" The patient presents to [...] diap horesis, or rhinorrhea. No known care SENIOR ACCOUNTING CLERK. The patient reports she was taken off [...] - SUPERFICIALIZATION; Surgeon: Rik Simon MD; Location: [facility] MAIN OR; Service: Vascular; Laterality: Left; Av fistula placement Left 04/08/2014 Procedure: AV FISTULA; Surgeon: Rik Simon MD; Location: [facility] OR; Service: Vascul ar; Laterality: Left; cephalic Dialysis fistula creation N/A 04/08/2014 Procedure: DIALYSIS CATHETER - INSERTION; Surgeon: Rik Simon MD; Location: [facility] O R; Service: Vascular; Laterality: N/A; tunneled catheter Av fistula repair Left 03/07/2014 Procedure: AV FISTULA - GRAFT REPAIR/REVISION; Surgeon: Rik Simon MD; Location: [facility] OR; Service: Vascular; Laterality: Left; Declot graft Left 03/07/2014 Procedure: GRAFT - DECLOT; Surgeon: Rik Simon MD; Location: [facility] OR; Service: Va scular; Laterality: Left; Prior [...] sore throat CV/Resp: Negative for chest pain, eltrtibco-jm-lcxqgb, cough GI: Negative for abdominal pain, nausea, [...] he will take the patient to the cath laboratory technician to try and remove the clot. 1:45 [...] Value Ref Range Date/Time CBC with differential [[id number]] (Abnormal) Collected: 07/09/16 1316 Order Status: Completed [...] MORPHOLOGY APPEAR NORMAL Platelet Estimate ADEQUATE aPTT [[id number]] (Abnormal) Collected: 07/09/161315 Order Status: Completed Specimen Information: Blood Updated: 07/09/16 1358 APTT 19 (L) 23 - 32 seconds Basic metabolic panel [[id number]] (Abnormal) Collected: 07/09/161315 Order Status: Completed Specimen [...] mg/dL EGFR 7 (L) >60 mL/min/1.73m2 Protime [[id number]] Collected: 07/09/161315 Order Status: Completed Specimen Information: [...] rowland with its contents. Signed by: Héctor Moore 07/09/2016, 2:39 PM DO Lawrence Dewey DO 07/09/16 3952 documented in th is encounter Miscellaneous Notes Op Note - Colten Hutchins MD - 07/09/2016 4:04 PM PDT Brief Op Note by Colten Hutchins MD PhD at 07/09/16 1603 Author: Colten Hutchins MD PhD Service: Interventional Radiology Author Type: Physician Filed: 07/09/16 6250 Date of Service: 07/09/16 1604 Status: Signed Inseamer: Colten Hutchins MD PhD (Physician) Interventional Radiology [...] drug coated balloon angioplasty within the stent. Judaism of vigoro us flow. Specimens: none EBL: [...] At | + + + | Successful roman catholic of flow within the left brachiocephalic | [...] | The microaccesses were exchanged to 6 Indonesian sheaths. Patient was | | | heparinized. [...] | | stent. Intraprocedural fistulogram was demonstrated roman catholic of | | | flow but severe [...] access. The microaccesses were exchanged to 6 Indonesian sheaths. Patient was | | heparinized. Via [...] stent. Intraprocedural fistulogram was | | demonstrated roman catholic of flow but severe recurrent in-stent restenosis [...] central veins are widely patent. IMPRESSION: Successful roman catholic of flow within the | | left [...] At | + + + | Successful roman catholic of flow within the left brachiocephalic | [...] | The microaccesses were exchanged to 6 Indonesian sheaths. Patient was | | | heparinized. [...] | | stent. Intraprocedural fistulogram was demonstrated roman catholic of | | | flow but severe [...] access. The microaccesses were exchanged to 6 Indonesian sheaths. Patient was | | heparinized. Via [...] stent. Intraprocedural fistulogram was | | demonstrated roman catholic of flow but severe recurrent in-stent restenosis [...] central veins are widely patent. IMPRESSION: Successful roman catholic of flow within the | | left [...] | LAB | | | | [address]ica [address] | | | | | | [address] | | | | + + + [...] at [facility] | | | | | | [address]ica [address];[place], [place] | | | | | | [address] | | | | + + + [...] | LAB | | | | Nica Oropeza;[place], [place] | | | | | | [address] | | | | + + + [...] at [facility];[address] [place] [address] | | | | | | [facility];[place] [address] | | | | + + + [...]
--- OUTSIDE RECORDS SUMMARY | ~2019-12-21 | XMS | Encounter Summary ---
Demographics + + + | Address | [address] | | | [place] [address] | + + + | Home Phone [...] + +------+ + | Care Director Of Clinical Education Name | Role | Phone | [...] [address] | | | | | [place], [place] | [place] [address] | | | | | [address] | [phone] | | | | | [phone] | | | +--------+ + + + [...]
--- OUTSIDE RECORDS SUMMARY | ~2019-12-21 | XMS | Encounter Summary ---
Demographics + + + | Address | [address] | | | [place] [address] | + + + | Home Phone [...] | | | | | [place] [address] | | + + + + + | Thania Mallory | ECON | [address] | | | | | [place] [address] | | + + + + + | Deidra Weldon | ECON | [address] | | | | | [place] | | | | | [address] | | + + + + + Care Team Providers + +------+ + | Care Hot Box Checker Name | Role | Phone | [...] potential | | | | Caro [address] [place], | [place], [place] | donor/checking in | | | | [place] [address] | [address] | with SW) | | | | [phone] | | | +--------+ + + + [...] drug screens set up for patient to [facility] plete. [place] SW will continue to follow pt for SW needs that may arise. Mariza Hsu, IN HOME NANNY, [facility] Renal Transplant Audit Officer pg. #[phone] documented in this en counter Plan of Treatment +--------+ + + + + | Date | Type | Specialty | Care Team | Description | +--------+ + + + + | 05/04/ | Hospital | Adult Acute Care | El Starr MD | | | 2022 | Encounter | | [address] | | | | | | [place], [place] | | | | | | [address] | | | | | | [phone] | | | | | | | | +--------+ + + + + documented as of this encounter Visit Diagnoses Not on filedocumented in this encounter"
--- OUTSIDE RECORDS SUMMARY | ~2019-12-21 | XMS | Encounter Summary ---
Demographics + + + | Address | [address] | | | [place] [address] | + + + | Home Phone [...] | | | | | [place] [address] | | + + + + + | Thania Mallory | ECON | [address] | | | | | [place] [address] | | + + + + + | Deidra Weldon | ECON | [address] | | | | | [place] | | | | | [address] | | + + + + + Care Team Providers + +------+ + | Care Electronic Technician Name | Role | Phone | [...] | | | | | Caro [address] [place], | [place], [place] | | | | | [place] [address] | [address] | | | | | [phone] | | | +--------+ + + + [...] [address]ise | | | | | | [facility] [place] | | | | | | [address] | | | | | | [phone] | | | | | | | | +--------+ + + + + documented as of this encounter Visit Diagnoses Not on filedocumented in this encounter
--- OUTSIDE RECORDS SUMMARY | ~2019-12-21 | XMS | Encounter Summary ---
Demographics + + + | Address | [address] | | | [place] [address] | + + + | Home Phone [...] | | | | | [place] [address] | | + + + + + | Thania Mallory | ECON | [address] | | | | | [place] [address] | | + + + + + | Deidra Weldon | ECON | [address] | | | | | [place] | | | | | [address] | | + + + + + Care Team Providers + +------+ + | Care Apparel Stock Checker Name | Role | Phone | [...] Nephrology at | MD Emanuel [address] [facility] | | | | | [place] | [facility] | | | | | [facility] | [place], [place] | | | | | [address] | [address] | | | | | [place] | [phone] | | | | | [facility], | | | | | | [address] [place] [address] | | | | | | [place], [place] | | | | | | [address] | | | | | | [phone] | | | +--------+ + + + [...] help out with funds to stay in [place] for the month following transplant pt may be able to bec ome active on the donor waitlist. Contacted mother of pt who is willing to try and help pt so that she may be re-activated on the list. Mother requested a new planning ahead form so they may complete this. Pt gave verbal okay for biological mother to speak with [facility] transplant/nephrology team. Notified DORON Ko to try [...] [address]ise | | | | | | [place], [place] | | | | | | [address] | | | | | | [phone] | | | | | | | | +--------+ + + + + documented as of this encounter Visit Diagnoses Not on filedocumented in this encounter"
--- OUTSIDE RECORDS SUMMARY | ~2019-12-21 | XMS | Encounter Summary ---
Demographics + + + | Address | [address] | | | [place] [address] | + + + | Home Phone [...] | Organization | [facility] | | | and [place] | + [...] Team Providers + +------+ + | Care Linux Unix Engineer Name | Role | Phone | + +------+ + PCP | Unavailable | + +------+ + Encounter Details +--------+ + + + + | Date | Type | Department | Care Team | Description | +--------+ + + + + | 06/11/ | Hospital | [facility] | | | | 2008 - | Encounter | MED CTR OP REHAB | | | | | | [address] [place] | | | | 07/03/ | | [place] [address] | | | | 2008 | | [phone] | | | +--------+ + + + [...]
--- OUTSIDE RECORDS SUMMARY | ~2019-12-21 | XMS | Encounter Summary ---
Demographics + + + | Address | [address] | | | [place] [address] | + + + | Home Phone [...] Providers + +------+ + | Care Electronic Assembler Name | Role | Phone | [...] Encounter | CONVERSION | MD Emanuel [address] [facility] | | | | | [address] | [address] | | | | | [address] | [place], [place] | | | | | [place], [place] | [address] | | | | | [address] | [phone] | | | | | [phone] | | | +--------+ + + + [...]
--- OUTSIDE RECORDS SUMMARY | ~2019-12-21 | XMS | Encounter Summary ---
Demographics + + + | Address | [address] | | | [place] [address] | + + + | Home Phone [...] | | | | | [place] [address] | | + + + + + | Thania Mallory | ECON | [address] | | | | | [place] [address] | | + + + + + | Deidra Weldon | ECON | [address] | | | | | [place] | | | | | [address] | | + + + + + Care Team Providers + +------+ + | Care Exhaust Equipment Operator Name | Role | Phone [...] Shun | | | | | at [facility] | [facility] | | | | | [address] | [place] [address] | | | | | [address] [facility] | | | | | | [place], [facility] floor | | | | | | [place], [place] | | | | | | [address] | | | | | | [phone] | | | +--------+ + + + [...] [place] | | | | | | [address] | | | | | | [phone] | | | | | | | [...] | e | 11:49 AM | MEDICARE [id number] | procedure are in the | | [...] view image for the detailed interpretation from [employer] results. | CARDIOLOGY | + + + + + | Procedure Note | + + | Interface, Cardiology Results - 12/21/2012 9:38 AM PDT Please click on view image | | for the detailed interpretation from [employer] results. 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
--- OUTSIDE RECORDS SUMMARY | ~2019-12-21 | XMS | Encounter Summary ---
Demographics + + + | Address | [address] | | | [place] [address] | + + + | Home Phone [...] Providers + +------+ + | Care Lace Weaver Name | Role | Phone | + +------+ + PCP | Unavailable | + +------+ + Encounter Details +--------+ + + + + | Date | Type | Department | Care Team | Description | +--------+ + + + + | 05/17/ | Hospital | [facility] GENERIC OP | Sudhakar Joy | | | 2010 | Encounter | CONVERSION | MD mEanuel [address] [facility] | | | | | [address]PART[address] | [address] | | | | | [address] | [place], [place] | | | | | [place], [place] | [address] | | | | | [address] | [phone] | | | | | [phone] | | | +--------+ + + + [...]
--- OUTSIDE RECORDS SUMMARY | ~2019-12-21 | XMS | Encounter Summary ---
Demographics + + + | Address | [address] | | | [place] [address] [...] Author | [facility] | | | and [place] | + + + | Organization | [facility] | | | and [...] Team Providers + +------+ + | Care Receiving Room Clerk Name | Role | Phone | [...] [address] | | | | | [place], [place] | [place] [address] | | | | | [address] | [phone] | | | | | [phone] | | | +--------+ + + + [...]
--- OUTSIDE RECORDS SUMMARY | ~2019-12-21 | XMS | Encounter Summary ---
Demographics + + + | Address | [address] | | | [place] [address] | + + + | Home Phone [...] | | | | | [place] [address] | | + + + + + | Thania Mallory | ECON | [address] | | | | | [place] [address] | | + + + + + | Deidra Weldon | ECON | [address] | | | | | [place] | | | | | [address] | | + + + + + Care Team Providers + +------+ + | Care Cloth Measurer Name | Role | Phone | + [...] | | | | | Physician's | [place], [place] | | | | | [address], [facility] floor | [address] | | | | | [place], [place] | [phone] | | | | | [address] | | | | | | [phone] | | | +--------+ + + + [...] | | | | | | [place], [place] | | | | | | [address] | | | | | | [phone] | | | | | | | | +--------+ + + + + documented as of this encounter Visit Diagnoses Not on filedocumented in this encounter"
--- OUTSIDE RECORDS SUMMARY | ~2019-12-21 | XMS | Encounter Summary ---
Demographics + + + | Address | [address] | | | [place] [address] | + + + | Home Phone [...] Providers + +------+ + | Care Coding Specialist Name | Role | Phone [...] Encounter | CONVERSION | MD Emanuel [address] [facility] | | | | | [address] | [place] [place] [address] | | | | [address] | [place], [place] | | | | | [place], [place] | [address] | | | | | [address] | [phone] | | | | | [phone] | | | +--------+ + + + [...]
--- OUTSIDE RECORDS SUMMARY | ~2019-12-21 | XMS | Encounter Summary ---
[...] | | | | | [place] [address] | | + + + + + | Thania Mallory | ECON | [address] | | | | | [place] [address] | | + + + + + | Deidra Weldon | ECON | [address] | | | | | [place] | | | | | [address] | | + + + + + Care Team Providers + +------+ + | Care Construction Project Mgr Name | Role | Phone | [...] | | [address] | [facility] | | | | | [facility], | [place], [place] | | | | | [place] [address] | [address] | | | | | [phone] | | | +--------+ + + + [...] [address] | | | | | | [place], [place] | | | | | | [address] | | | | | | [phone] | | | | | | | | +--------+ + + + + documented as of this encounter Visit Diagnoses Not on filedocumented in this encounter"
--- OUTSIDE RECORDS SUMMARY | ~2019-12-21 | XMS | Encounter Summary ---
Demographics + + + | Address | [address] | | | [place] [address] | + + + | Home Phone [...] Team Providers + +------+ + | Care Chemist Organic Name | Role | Phone | + +------+ + PCP | Unavailable | + +------+ + Encounter Details +--------+ + + + + | Date | Type | Department | Care Team | Description | +--------+ + + + + | 02/12/ | Hospital | [facility] | Nereida Roberson | | | 2007 | Encounter | HOSPITAL EMERGENCY | MD Eufemia [address] | | | | | [place] [address] [place], | | | | | [address] [place], [place] | [place] [address] | | | | | [address] | [phone] | | | | | [phone] | | | +--------+ + + + [...]
--- OUTSIDE RECORDS SUMMARY | ~2019-12-21 | XMS | Encounter Summary ---
Demographics + + + | Address | [address] [facility] [place] [address] | | | [place] [address] | + + + | Home Phone [...] | | | | | [place] [address] | | + + + + + | Thania Mallory | ECON | [address] | | | | | [place] [address] | | + + + + + | Deidra Weldon | ECON | [address] | | | | | [place] | | | | | [address] | | + + + + + Care Team Providers + +------+ + | Care Cashier Clerk Name | Role | Phone | [...] Rd | | | | | | [place], [place] | | | | | | [address] | | | +--------+ + + + [...] [address]ise | | | | | | [place], [place] | | | | | | [address] | | | | | | [phone] | | | | | | | | +--------+ + + + + documented as of this encounter Visit Diagnoses Not on filedocumented in this encounter"
--- OUTSIDE RECORDS SUMMARY | ~2019-12-21 | XMS | Encounter Summary ---
Demographics + + + | Address | [address] | | | [place] [address] | + + + | Home Phone [...] Team Providers + +------+ + | Care Cupola Liner Helper Name | Role | Phone | + +------+ + PCP | Unavailable | + +------+ + Encounter Details +--------+ + + + + | Date | Type | Department | Care Team | Description | +--------+ + + + + | 05/29/ | [facility] | [facility] MEDICAL | Conversion | End stage renal | | 2015 | Encounter | CENTER IR INTRA OP | Transaction, | disease (HCC) | | | | [address] | Provider Unknown | | | | | [place], [place] | | | | | | [address] | (Fax) | | | | | [phone] | | | +--------+ + + + [...] 05/29/144 Date of Service: 05/29/141648 Status: Signed Seismic Computer: Mesha Clark RN (Registered Nurse) Discharge criteria met s/p HD cath exchange. Discharge instructions given to patient and fa ozzy, all questions answered and understanding stated. Discharged with family. docume nted in this encounter H&P Notes Manny Whaley MD, MD - 05/29/2014 3:43 PM PDTFormatting of this note might be diffe rent from the original. H&P by Darryn Whaley MD at 05/29/14 6333 Author: Darryn Whaley MD Service: Interventional Radiology Author Type: Physician Filed: 05/29/14 1548 Date of Service: 05/29/141542 Status: Signed Seismic Computer: Darrny Whaley MD (Physician) [facility] Service: Interventional Radiology Admission History & Physical [...] GRAFT REPAIR/REVISION; Surgeon: Rik Simon MD; Location: [facility] OR; Service: Vascular; Laterality: Left; Declot [...] tunneled cath and n eeds exchange. Disposition: [facility] Code Status: Prior Primary Care Physician: [...] Successful | | | placement of a 14.5-Greenlandic dual-lumen 19-cm tunneled hemodialysis | | | catheter with its tip in the upper portion of the right atrium without | | | incidence. 69989, 61046, 30400, 57333-18 Electronically | | | signed by Darryn [...] jugular vein. 3. Placement of 19 cm, 14.5-Greenlandic | | | dual-lumen tunneled palindrome hemodialysis [...] records. 3. Upper chest radiograph shows dual-lumen, 14.5-Greenlandic, | | | 19-cm, tunneled dialysis catheter [...] | micropuncture needle and exchanged for a 4-Greenlandic micropuncture sheath | | | over a 0.018 wire. Skin in the infraclavicular region was | | | infiltrated with 1% lidocaine and a 5-mm skin incision was made. A | | | 14.5-Greenlandic, dual-lumen, 19-cm tunneled hemodialysis catheter was | | | placed a subcutaneous tunnel using a metallic tunneler. The 4-Greenlandic | | | sheath was exchanged for a 0.035, 3-mm J-wire with its tip in the | | | right atrium under fluoroscopy guidance. The skin and subcutaneous | | | tract was dilated using at 12 and 14-Greenlandic facial dilators. A | | | 15-Greenlandic peel-away sheath was placed over the wire [...] Conversion - 10/19/2018 6:38 AM PDT [facility] T[facility] | | CATHETER INSERTION05/29/2014 3:42 PM HISTORY:19 years. Female. Patient with end-stage | | renal disease and poorly functioning right upper chest subclavian central venous | | tunneled catheter. 585.6. PROCEDURE: 1. Sonography of the lower neck veins.2. | | Sonographic guidance for access into the right internal jugular vein.3. Placement of 19 | | cm, 14.5-Greenlandic dual-lumen tunneled palindrome hemodialysis catheter in the [...] Upper chest radiograph shows dual-lumen, | | 14.5-Greenlandic, 19-cm, tunneled dialysis catheter with its tip [...] needle and exchanged for | | a 4-Greenlandic micropuncture sheath over a 0.018 wire. Skin in the infraclavicular region | | was infiltrated with 1% lidocaine and a 5-mm skin incision was made. A 14.5-Greenlandic, | | dual-lumen, 19-cm tunneled hemodialysis catheter was placed a subcutaneous tunnel using | | a metallic tunneler. The 4-Greenlandic sheath was exchanged for a 0.035, 3-mm J-wire with | | its tip in the right atrium under fluoroscopy guidance. The skin and subcutaneous tract | | was dilated using at 12 and 14-Greenlandic facial dilators. A 15-Greenlandic peel-away sheath | | was placed over [...] veins.2. Successful placement | | of a 14.5-Greenlandic dual-lumen 19-cm tunneled hemodialysis catheter with its tip in the | | upper portion of the right atrium without incidence. 71888, 89514, 46118, 25542-63 | | | |2. Successful placement of a 14.5-Greenlandic dual-lumen 19-cm tunneled hemodialysis catheter w ith its tip in the upper portion of the right atrium without incidence. | | | |55654, 47561, 78663, 49277-17 | | | | | + + documented in this encounter Visit Diagnoses + + | Diagnosis | + + | End stage renal disease (HCC) End stage renal disease | + + documented in this encounter"
--- OUTSIDE RECORDS SUMMARY | ~2019-12-21 | XMS | Encounter Summary ---
Demographics + + + | Address | [address] | | | [place] [address] | + + + | Home Phone [...] | | | | | [place] [address] | | + + + + + | Thania Mallory | ECON | [address] | | | | | [place] [address] | | + + + + + | Deidra Weldon | ECON | [address] | | | | | [place] | | | | | [address] | | + + + + + Care Team Providers + +------+ + | Care Freight Sales Broker Name | Role | Phone | + +------+ + | Jonathan Alonso MD | PCP | | + +------+ + Encounter Details +--------+ + + + + | Date | Type | Department | Care Team | Description | +--------+ + + + + | 01/20/ | Hospital | Radiology at [facility] | | | | 2014 | Encounter | [address] | | | | | | [place] | | | | | | [facility], | | | | | | [address] [facility] | | | | | | [place], [place] | | | | | | [address] | | | | | | [phone] | | | +--------+ + + + [...] Denise | | | | | | [place], [place] | | | | | | [address] | | | | | | [phone] | | | | | | | [...] V | | | | | | ([facility]) | | + +--------+ + + [...]
--- OUTSIDE RECORDS SUMMARY | ~2019-12-21 | XMS | Encounter Summary ---
Demographics + + + | Address | [address] | | | [place] [address] | + + + | Home Phone [...] Team Providers + +------+ + | Care Feller Machine Operator Name | Role | Phone [...] + + | 11/15/ | Telephone | [facility] | George Torres RN | Lab Results | | 2019 | | [address] | | (Cytology report) | | | | [place], [place] | | | | | | [address] | | | | | | [phone] | | | +--------+ + + + [...]
--- OUTSIDE RECORDS SUMMARY | ~2019-12-21 | XMS | Encounter Summary ---
Demographics + + + | Address | [address] | | | [place] [address] | + + + | Home Phone [...] Team Providers + +------+ + | Care Cylinder Worker Name | Role | Phone | [...] [facility]) | [address] | [address] | | | | | Anemia in | [place], [place] | [place], | | | | | ESRD | [address] | [place] [address] | | | | | (end-stage | Phone: | Phone: | | | | | renal | [phone] | [phone] | | | | | disease) | Fax: | Fax: | | | | | ([facility]) | [phone] | [phone] | | | | | Procedures | [...] [address] | renal disease) ([facility]) | | | | [address] | [address] [place] | (Primary Dx) | | | | [place], [place] | [place] [address] | | | | | [address] | [phone] | | | | | [phone] | | | +--------+ + + + [...]
--- OUTSIDE RECORDS SUMMARY | ~2019-12-21 | XMS | Encounter Summary ---
Demographics + + + | Address | [address] | | | [place] [address] | + + + | Home Phone [...] | | | | | [place] [address] | | + + + + + | Thania Mallory | ECON | [address] | | | | | [place] [address] | | + + + + + | Deidra Weldon | ECON | [address] | | | | | [place] | | | | | [address] | | + + + + + Care Team Providers + +------+ + | Care Polygraph Operator Name | Role | Phone | [...] Evaluation | | | | [address] [place], | [place], [place] | | | | | [place] [address] | [address] | | | | | [phone] | | | +--------+ + + + [...] Situation: Patient reports she was born in [place], [place] where she lived her whole life except for e past two years, when they moved to [place], [place]. She currently lives in [place] with h er father and step mother. Patient's parents, Thania (44) and Cory "Clayton" (41) were for nine years and divo rced about seven years ago. Thania reports she has asthma, takes medications for depressio n, is a smoker but otherwise is stable and independent. She lives in [place] and has a boyfri end who took this trip with her but did not participate in this interview. Clayton and Thania have one other child together, a son named Kush (15) who currently lives with [facility], in [place], [place]. Clayton a woman named Deidra in August 2012. She is in stable health and did not come on this trip to [facility]. 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 She is receiving passing grades bu t misses some classes due to being on home dialysis, not many though. Her favorite subject is Namibian and she has joined the [employer] group for the first time and is [...] Employed: yes. 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 How Long: been there for 1.5 years. Stepmother's Employed: yes. 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 The family uses the [facility] and say they get some help with medications costs by doing so. It is uncle ar why pt isn't using [place] based home dialysis unit as dad reports they live "just [place] far from [place] as [place]." Parents' understanding of her medical insurance benefits is adequa te. She should have fairly comprehensive coverage with the two plans although attention raul uld be paid to using services and pharmacies in [place] if possible. We discussed the high costs of immunosuppressive medications and the limitations of the Med icare benefit. We also discussed the basics of the Medicare prescription drug plan. The [facility] ESRD booklet for children was provided to [...] limitations until fully recovered from transplant surgery. Spiritual/Moravian Affiliation: none Community/Social Involvement: School events (band [...] He also had some t bridgette in correction over 10 years ago for an assault charge related to etoh. He spent only a brief t bridgette in correction and has no legal problems currently. Patient [...] kidney problems and they have seen a podopediatrician for care. Dara and sebastian er parents [...] not live within an acceptable distance from [facility] and plans on exactly where th ey [...] not be able to use the local [employer] where patient and her father are stayi ng this trip due to house guidelines and who is staying. 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 They have an aunt who lives in [place], [place]. The y have some funds for [...] has dual-eligible comprehensive insurance for care in [place] rel ated to transplant and post-tx care/meds. [...] 4 Social Support Score: 1-2 Identified Strengths/Risks: [place] family, some behavioral issues and more questions [...] ited resources for month long stay in [facility]. From a psychosocial standpoint my concerns are [...] for pediatric renal transplant surgery. DORON Ko, MOTOR BIKE MECHANIC Pediatric Renal Transplant Bulldogger pg. #[phone] documented in this en counter Plan of [...] [place] | | | | | | [address] | | | | | | [phone] | | | | | | | | +--------+ + + + + documented as of this encounter Visit Diagnoses Not on filedocumented in this encounter
--- OUTSIDE RECORDS SUMMARY | ~2019-12-21 | XMS | Encounter Summary ---
Demographics + + + | Address | [address] | | | [place] [address] | + + + | Home Phone [...] | | | | | [place] [address] | | + + + + + | Thania Mallory | ECON | [address] | | | | | [place] [address] | | + + + + + | Deidra Weldon | ECON | [address] | | | | | [place] | | | | | [address] | | + + + + + Care Team Providers + +------+ + | Care Composition Floor Setter Name | Role | Phone | [...] Transplant Services | RN [address] [facility] | list) | | | | [address] | [facility] | | | | | [address] [facility], | [place], [place] | | | | | [place] [address] | [address] | | | | | [phone] | | | +--------+ + + + [...] sent to scanning on 03/16/2012 c. Does [place] organ diagnosis match Medicare 2728? Yes. If not, make sure Medicare 2728 diagnosis is denoted on problem list. d. If patient is predialysis, do we have recent labs with MDRD6 calculation form? N/A e. Are signed Informed Consent and LIT Consent forms received and scanned? Yes, sent to me anning on 12/20/2012. f. Are the pharmacy, [...] 5. Did not review expanded criteria donor (GRAIN PICKER) with patient due to pediatric recipient sta [...] testing may need to be done at [facility]. 8. Reviewed support plan with patient. 9. Reviewed with patient the steps to listing: Insurance authorization, UNOS paperwork, and new PRA sample. Reviewed with patient that [facility] will call with additional [...] | | | | | | [place], [place] | | | | | | [address] | | | | | | [phone] | | | | | | | | +--------+ + + + + documented as of this encounter Visit Diagnoses Not on filedocumented in this encounter"
--- OUTSIDE RECORDS SUMMARY | ~2019-12-21 | XMS | Encounter Summary ---
Demographics + + + | Address | [address] | | | [place] [address] | + + + | Home Phone [...] | | | | | [place] [address] | | + + + + + | Thania Mallory | ECON | [address] | | | | | [place] [address] | | + + + + + | Deidra Weldon | ECON | [address] | | | | | [place] | | | | | [address] | | + + + + + Care Team Providers + +------+ + | Care Wind Turbine Mechanic Name | Role | Phone | [...] Query) | | | | [address] [place], | [place], [place] | | | | | [place] [address] | [address] | | | | | [phone] | [phone] | | | | | | | [...] Denise | | | | | | [place], [place] | | | | | | [address] | | | | | | [phone] | | | | | | | | +--------+ + + + + documented as of this encounter Visit Diagnoses Not on filedocumented in this encounter"
--- OUTSIDE RECORDS SUMMARY | ~2019-12-21 | XMS | Encounter Summary ---
Demographics + + + | Address | [address] | | | [place] [address] | + + + | Home Phone [...] | | | | | [place] [address] | | + + + + + | Thania Mallory | ECON | [address] | | | | | [place] [address] | | + + + + + | Deidra Weldon | ECON | [address] | | | | | [place] | | | | | [address] | | + + + + + Care Team Providers + +------+ + | Care Nurses' Aide Name | Role | Phone | [...] Transplant Services | RN [address] | Summary | | | | [address] | [facility] | | | | | [facility], | [place], [place] | | | | | [place] [address] | [address] | | | | | [phone] | | | +--------+ + + + [...] Denise | | | | | | [place], [place] | | | | | | [address] | | | | | | [phone] | | | | | | | | +--------+ + + + + documented as of this encounter Visit Diagnoses Not on filedocumented in this encounter"
--- OUTSIDE RECORDS SUMMARY | ~2019-12-21 | XMS | Encounter Summary ---
Demographics + + + | Address | [address] | | | [place] [address] | + + + | Home Phone [...] | | | | | [place] [address] | | + + + + + | Thania Mallory | ECON | [address] | | | | | [place] [address] | | + + + + + | Deidra Weldon | ECON | [address] | | | | | [place] | | | | | [address] | | + + + + + Care Team Providers + +------+ + | Care Coater Operator Insulation Board Name | Role | Phone | + [...] | | | [address] [place], | [place], [place] | | | | | [place] [address] | [address] | | | | | [phone] | | | +--------+ + + + [...] El Starr MD Disciplines Present: Surgery Attending, Reworker, Pediatric Nephrologists, So cial Worker and Dietitian Transplant Nurse: Kelsi Martinez Referring Physician for Transplant: [facility] Center: [facility] Hemodialysis Decision: APPROVED Providers Intent: A2 into B: No EDUCATIONAL CONSULTANT: No En Bloc: No CMV Negative Donor Only: No CDC High Risk: No High Risk Recipient: Yes Reason: Teenager, overweight [place] Kidney Disease: Henoch-Schonlein [place] Living Donor Implications: [...] be <50 yrs old, no DCD or EDUCATIONAL CONSULTANT. 2. Only 1 DR mismatch 3. 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 2. Only 1 DR mismatch 3. Alemtuzumab [...] Ave | | | | | | [place], [place] | | | | | | [address] | | | | | | [phone] | | | | | | | | +--------+ + + + + documented as of this encounter Visit Diagnoses Not on filedocumented in this encounter"
--- OUTSIDE RECORDS SUMMARY | ~2019-12-21 | XMS | Encounter Summary ---
Demographics + + + | Address | [address] | | | [place] [address] | + + + | Home Phone [...] | | | | | [place] [address] | | + + + + + | Thania Mallory | ECON | [address] | | | | | [place] [address] | | + + + + + | Deidra Weldon | ECON | [address] | | | | | [place] | | | | | [address] | | + + + + + Care Team Providers + +------+ + | Care Classification Control Clerk Name | Role | Phone | + +------+ + PCP | Unavailable | + +------+ + Reason for Visit + + + | Reason | Comments | + + + | Transplant Form | worker's compensation claims examiner 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 | | Update | | [...] dates | | | | [address] [place], | [place], [place] | updated) | | | | [place] [address] | [address] | | | | | [phone] | [phone] | | | | | | | [...] Denise | | | | | | [place], [place] | | | | | | [address] | | | | | | [phone] | | | | | | | | +--------+ + + + + documented as of this encounter Visit Diagnoses Not on filedocumented in this encounter"
--- OUTSIDE RECORDS SUMMARY | ~2019-12-21 | XMS | Encounter Summary ---
Demographics + + + | Address | [address] | | | [place] [address] | + + + | Home Phone [...] | | | | | [place] [address] | | + + + + + | Thania Mallory | ECON | [address] | | | | | [place] [address] | | + + + + + | Deidra Weldon | ECON | [address] | | | | | [place] | | | | | [address] | | + + + + + Care Team Providers + +------+ + | Care Guidance And Control System Engineer Name | Role | Phone | [...] 03/08/ | Telephone | Pediatric | Sudhakar Jyo | Follow-up visit (r/s | | 2012 | | Nephrology at | [place] [address] | f/u appt on | | | | [place] | [address] | 03/16/12 to [place]) | | | | [facility] | [place], [place] | | | | | [address] | [address] | | | | | [place] | [phone] | | | | | [facility], | | | | | | [facility] [facility] | | | | | | [place], [place] | | | | | | [address] | | | | | | [phone] | | | +--------+ + + + [...] 1:24 PM PSTLVM on # to r/s [facility] a ppt to [facility] if the family is willing per [...] | | | | | | [place], [place] | | | | | | [address] | | | | | | [phone] | | | | | | | | +--------+ + + + + documented as of this encounter Visit Diagnoses Not on filedocumented in this encounter"
--- OUTSIDE RECORDS SUMMARY | ~2019-12-21 | XMS | Encounter Summary ---
Demographics + + + | Address | [address] | | | [place] [address] | + + + | Home Phone [...] Providers + +------+ + | Care Director Digital Catalogue Name | Role | Phone | + [...] | | [address] | [place], [place] | [place], | | | | | stage renal | [address] | [place] [address] | | | | | disease | Phone: | Phone: | | | | | ([facility]) | [phone] | [phone] | | | | | Infection | Fax: | Fax: | | | | | and | [phone] | [phone] | | | | | inflammatory | [...] | (Primary Dx); | | | | [place], [place] | [place] [address] | Anemia in ESRD | | | | [address] | [phone] | (end-stage renal | | | | [phone] | | disease) ([facility]) | [...] There fore she has had construction of makah radio cephalic fistula in her left arm [...] Chavarria's help with her permanent AVF. C: [facility] Jasiel Joy MD, Renal Transplant Clinic, [facility] documented in thi s encounter Plan [...]
--- OUTSIDE RECORDS SUMMARY | ~2019-12-21 | XMS | Encounter Summary ---
Demographics + + + | Address | [address] | | | [place] [address] | + + + | Home Phone [...] | [facility] | | | and [place] | + + + | Organization | [facility] | | | [...] Providers + +------+ + | Care Refractory Mixer Name | Role | Phone | [...] ST | | | | | ([facility]) | [address] | [address] | | | | | Anemia in | [place], [place] | [place], | | | | | ESRD | [address] | [place] [address] | | | | | (end-stage | Phone: | Phone: | | | | | renal | [phone] | [phone] | | | | | disease) | Fax: | Fax: | | | | | ([facility]) | [phone] | [phone] | | | | | Procedures | [...] [address] | renal disease) ([facility]) | | | | [address] | [address] [place] | (Primary Dx) | | | | [place], [place] | [place] [address] | | | | | [address] | [phone] | | | | | [phone] | | | +--------+ + + + [...] have offered her arrangements via the Renal TRUSS PULLER HELPER to obtain some meaningful counseling, but she [...] Will recheck her in 2 weeks. : [place] Fina Joy M.D., Pediatric Nephrology, [facility] documented in t his encounter Plan of Treatment Not on filedocumented as of this encounter Visit Diagnoses + + | Diagnosis | + + | ESRD (end stage renal disease) (HCC) - Primary End stage renal disease | + + documented in this encounter"
--- OUTSIDE RECORDS SUMMARY | ~2019-12-21 | XMS | Encounter Summary ---
Demographics + + + | Address | [address] | | | [place] [address] | + + + | Home Phone [...] | | | | | [place] [address] | | + + + + + | Thania Mallory | ECON | [address] | | | | | [place] [address] | | + + + + + | Deidra Weldon | ECON | [address] | | | | | [place] | | | | | [address] | | + + + + + Care Team Providers + +------+ + | Care Career Development Counselor Name | Role | Phone | [...] [facility] | | | | | ([facility] | Shun Griffin | [place] | | | | | Procedures | Caro Chan | Children's | | | | | TRANSTHORACI | [place], [place] | [address] | | | | | C | [address] | Floor | | | | | ECHOCARDIOGR | Phone: | [place], [place] | | | | | AM, PEDS | [phone] | [address] | | | | | | Fax: | Phone: | | | | | | [phone] | [phone] | | | | | | | Fax: | | | | | | | [phone] | +--------+--------+ + + + + Reason [...] | Allergic | Sudhakar Castellanos, | Lab [facility] [address] | | | | | conchita | [address] | | | | | ([facility]) | Shun Griffin | [place] | | | | | Procedures | Caro Chan | Children's | | | | | TRANSTHORACI | [place], [place] | [address] | | | | | C | [address] | Floor | | | | | ECHOCARDIOGR | Phone: | [place], [place] | | | | | AM, PEDS | [phone] | [address] | | | | | | Fax: | Phone: | | | | | | [phone] | [phone] | | | | | | | Fax: | | | | | | | [phone] | +--------+--------+ + + + + Encounter Details +--------+ + + + + | Date | Type | Department | Care Team | Description | +--------+ + + + + | 12/20/ | Hospital | Pediatric Echo Lab | | | | 2012 | Encounter | at [place] | | | | | | [facility] | | | | | | [address] | | | | | | [place] | | | | | | [facility] | | | | | | 8th Floor [place], | | | | | | [place] [address] | | | | | | [phone] | | | +--------+ + + + [...] Denise | | | | | | [place], [place] | | | | | | [address] | | | | | | [phone] | | | | | | | [...] | + + | Lamonte, Faculty - 12/20/2012 12:15 PM PDT | + + documented in this encounter Visit Diagnoses + + | Diagnosis | + + | 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
--- OUTSIDE RECORDS SUMMARY | ~2019-12-21 | XMS | Encounter Summary ---
Demographics + + + | Address | [address] | | | [place] [address] | + + + | Home Phone [...] | | | | | [place] [address] | | + + + + + | Thania Mallory | ECON | [address] | | | | | [place] [address] | | + + + + + | Deidra Weldon | ECON | [address] | | | | | [place] | | | | | [address] | | + + + + + Care Team Providers + +------+ + | Care Pupil Personnel Services Director Name | Role | Phone [...] with | | | | Caro Chan [place], | [place], [place] | pt's dad) | | | | [place] [address] | [address] | | | | | [phone] | | | +--------+ + + + [...] for $146 per mo in premium (an [place] plan) and would have option to add [...] her dialysis un it be located in [facility], where her [place] Medicaid does not fully, completely cover all th e costs she has due to being out of [place] Medicaid and [place] clinic available [place]. Leah states the family pays "$25 per day" for her dialysis and works with Gaby to pay other various uncovered items related to dialysis and clinic appts in [place]. Dad may be nefit from the $4 [...] discussing topics with Dr. Joy. Mariza Hsu, FRIT MAKER, [facility] Pediatric Renal Transplant Tree Warden pg. #[phone] documented in this en counter Plan of Treatment +--------+ + + + + | Date | Type | Specialty | Care Team | Description | +--------+ + + + + | 05/04/ | Hospital | Adult Acute Care | El Starr MD | | | 2022 | Encounter | | [address] | | | | | | [place], [place] | | | | | | [address] | | | | | | [phone] | | | | | | | | +--------+ + + + + documented as of this encounter Visit Diagnoses Not on filedocumented in this encounter
--- OUTSIDE RECORDS SUMMARY | ~2019-12-21 | XMS | Encounter Summary ---
Demographics + + + | Address | [address] | | | [place] [address] | + + + | Home Phone [...] | Author | [facility] | | | and [place] | + + + | Organization | [facility] | | | [...] Providers + +------+ + | Care Hand Model Name | Role | Phone | [...] [address] [place] | | | | | [place], [place] | [place] [address] | | | | | [address] | [phone] | | | | | [phone] | | | +--------+ + + + [...]
--- OUTSIDE RECORDS SUMMARY | ~2019-12-21 | XMS | Encounter Summary ---
Demographics + + + | Address | [address] | | | [place] [address] | + + + | Home Phone [...] Providers + +------+ + | Care Managing Broker Name | Role | Phone | + +------+ + | Jonathan Alonso MD | PCP | | + +------+ + Encounter Details +--------+ + + + + | Date | Type | Department | Care Team | Description | +--------+ + + + + | 03/27/ | Orders Only | [facility] | Rik Simon MD | | | 2015 | | VASCULAR SURGERY | [address] | | | | | ULTRASOUND [address] | [place], [place] | | | | | [address] | [address] | | | | | [place], [place] | [phone] | | | | | [address] | | | | | | [phone] | | | +--------+ + + + [...]
--- OUTSIDE RECORDS SUMMARY | ~2019-12-21 | XMS | Encounter Summary ---
Demographics + + + | Address | [address] | | | [place] [address] | + + + | Home Phone [...] RN | | | | | [facility] [address] | | | | | | [place] | | | | | | [address] | | | | | | [phone] | | | +--------+ + + + [...]
--- OUTSIDE RECORDS SUMMARY | ~2019-12-21 | XMS | Encounter Summary ---
Demographics + + + | Address | [address] | | | [place] [address] | + + + | Home Phone [...] Team Providers + +------+ + | Care Offender Employment Specialist Name | Role | Phone | [...] | | | | | | [place] | | | | | | | [...] Fistula | | | | [address] | [place] | Creation | | | | [place] | [place] [address] | | | | | [address] | [phone] | | | | | [phone] | | | +--------+---------+ + + + [...] might be different f rom the original. [facility] POST-OP INSTRUCTIONS: Arterio-Venous Fistula 1. Keep [...] may interact with prescription medicines or other mjqz-frn-inwdbjp (OTC) drugs. The FDA recommends reading OTC medication labels careful ly to clearly understand the list of active ingredients, directions, and any precautions to help avoid taking too muchacetaminophen. If you have questions, ask your pharmacist or a [facility] care provider. Managing Nausea Some people [...] or skin changes (rash, itching, or hives). 4481-5274 [employer]. [address] [place] [address]. All righ ts reserved. This information is [...] Chavarria MD - 02/24/2014 7:47 AM PST [facility] Vannessa Hurd [place] SURGICAL INTERIM HISTORY AND PHYSICAL UPDATE Pt. [...] signed by: Blake Chavarria, 02/24/2014 7:47 [facility] ield, Blake Fung MD - 02/20/2014 10:16 [...] Care ? Shahid Camargo Who is your Die Maker Electronic/Kidney Specialist ? Dr. Camp When was the current dialysis access placed? July [address] [facility] What problems are there with the current dialysis access? 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 Patient used to have PD catheter for dialysis 2012--[facility] in [place] . Came out Jul, 2013 . Then got RIGHT IJ catheter. Also got catheter at [facility]. Live in [place]. Go es to [facility] for dialysis. Now needs AVF. Is RIGHt hand dominant. No pains in hands. 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 Currently on [facility] for kidney [...] (1987) and ESRD (end stage renal disease) ([facility]). Past Surgical History She Past [...] REPORT: PATIENT NAME : Dara Weldon EQUIPMENT: SonProven-Blue Boxo with 10-5 mHertz probe. INDICATIONS: Dialysis access [...] FACS Vascular and General Surgery CC: Shahid Camagro documented in this encounter Miscellaneous Notes Plan of Care - ONBASE SCAN [facility] - 02/25/2014 12:00 AM PST iscellaneous - ONBASE SCAN [facility] - 02/25/2014 12:00 AM PSTElec tronically signed by Jose Chavez at 02/25/2014 1:27 PM PSTMiscellaneous - ONBASE SCAN [facility] - 02/25/2014 12:00 AM PST p Note - Blake Chavarria MD - [facility]2014 [facility] Pt[facility] Name/Age/: Dara Weldon 18 y.o. 1995 Med. Record Number: [id number] Date of admission: 02/24/2014 Date of Operation/Procedure: [...] mL/min/1.73m2 | [facility] | | | Montenegrin | (<18). | | MEDICAL | | [...] + | [facility] | [address] | [place], [place] | [phone] | | [facility] | | [address] | | | - LABORATORY | | | | + + + + + | [facility] | [address] | [place], [place] | | | [facility] | | [address] [place] [address] | | | - LABORATORY | | [...]
--- OUTSIDE RECORDS SUMMARY | ~2019-12-21 | XMS | Encounter Summary ---
Demographics + + + | Address | [address] | | | [place] [address] [...] | | | | | [place] [address] | | + + + + + | Thania Mallory | ECON | [address] | | | | | [place] [address] | | + + + + + | Deidra Weldon | ECON | [address] | | | | | [place] | | | | | [address] | | + + + + + Care Team Providers + +------+ + | Care Base Wad Operator Adjuster Name | Role | Phone | [...] | | | | [facility] | [facility] | | | | | | Keven | [place] | | | | | | Hospital | Children's | | | | | | [address] | [address] | | | | | | [address] | floor | | | | | | [place], | [place], [place] | | | | | | [place] | [address] | | | | | | [address] | Phone: | | | | | | Phone: | [phone] | | | | | | [phone] | | | | | | | Fax: | | | | | | | [phone] | | +--------+--------+ + + + + Encounter Details +--------+---------+ + + + | Date | Type | Department | Care Team | Description | +--------+---------+ + + + | 08/17/ | Office | Specialty Clinics | Sudhakar Joy | Anemia of chronic | | 2016 | Visit | at [facility] [address] | [address], [address] | kidney failure, | | | | [address] | [address] | stage 5 (HCC) | | | | [place] | [place], [place] | (Primary Dx); [facility] | | | | [facility], | [address] | [facility] | [facility] | [phone] | purpura) nephritis | | | | [place], [place] | | | | | | [address] | | | | | | [phone] | | | +--------+---------+ + + + [...] IV), Inject into the vein (IV). EPOETIN JYOCE INJ, by Injection route. FOLIC ACID/VITAMIN B [...] [facility] Dustin.; Mail code [facility] [place], [place] [id number] documented in this encounter Plan of Treatment +--------+ + + + + | Date | Type | Specialty | Care Team | Description | +--------+ + + + + | 05/04/ | Hospital | Adult Acute Care | El Starr MD | | | 2022 | Encounter | | [address] | | | | | | [place], [place] | | | | | | [address] | | | | | | [phone] | | | | | | | [...]
--- OUTSIDE RECORDS SUMMARY | ~2019-12-21 | XMS | Encounter Summary ---
Demographics + + + | Address | [address] | | | [place] [address] | + + + | Home Phone [...] Author | [facility] | | | and [...] Team Providers + +------+ + | Care Marble Setter Helper Name | Role | Phone | [...] - [place]) | [address] | [address] | | | | | Anemia in | [place], [place] | [place], | | | | | ESRD | [address] | [place] [address] | | | | | (end-stage | Phone: | Phone: | | | | | renal | [phone] | [phone] | | | | | disease) | Fax: | Fax: | | | | | ([facility]) | [phone] | [phone] | | | | | Procedures | [...] [place]) | | | | [address] | [address] [place] | (Primary Dx) | | | | [place], [place] | [place] [address] | | | | | [address] | [phone] | | | | | [phone] | | | +--------+ + + + [...] She is see n on HD at [facility], with QB = 450. Unfortunately, she is consistently plagued by unexplained absenteeism from treatments. Despite having reliable transportation arranged b y the Advanced Manufacturing Vice President. She apparently still lacks meaningful plans for [...] last 3 mo. I think that her [place] Dry wt = 97.5 kg? 3. SHPTH--not [...] our office, myself or Dr. Ibarra. : [employer] Fina Joy M.D., Pediatric Nephrology, [facility] documented in t his encounter Plan of Treatment Not on filedocumented as of this encounter Visit Diagnoses + + | Diagnosis | + + | ESRD (end stage renal disease) (HCC) - Primary End stage renal disease | + + documented in this encounter"
--- OUTSIDE RECORDS SUMMARY | ~2019-12-21 | XMS | Encounter Summary ---
Demographics + + + | Address | [address] | | | [place] [address] | + + + | Home Phone [...] + +------+ + | Care Community Services Officer Name | Role | Phone [...] + + | 12/17/ | Telephone | [facility] | [place], | Appointment | | 2019 | | CENTER CASE | Irish Obrien CMA | (Appointment with | | | | MANAGEMENT [address] | | PCP needed) | | | | [address] | | | | | | [place], [place] | | | | | | [address] | | | | | | [phone] | | | +--------+ + + + [...]
--- OUTSIDE RECORDS SUMMARY | ~2019-12-21 | XMS | Encounter Summary ---
Demographics + + + | Address | [address] | | | [place] [address] | + + + | Home Phone [...] Author | [facility] | | | and [place] | + + + | Organization | [facility] | | | [...] Team Providers + +------+ + | Care Seismograph Shooter Name | Role | Phone | + [...] [address] | | | | | [place], [place] | [place] [address] | | | | | [address] | [phone] | | | | | [phone] | | | +--------+ + + + [...] contact with the dialysis staff in clinical quality analyst on a frequent basis. Outpatient Prescriptions Marked [...] will be rechecked in 2 weeks. : [facility] documented in thi s encounter Plan of Treatment Not on filedocumented as of this encounter Visit Diagnoses + + | Diagnosis | + + | ESRD (end stage renal disease) (HCC) - Primary End stage renal disease | + + documented in this encounter"
--- OUTSIDE RECORDS SUMMARY | 2019-12-21 22:46 | XMS ---
PreManage Notification: CONOR LOUISE Security Emulsion Operator Events No recent Security Events currently on file CRITERIA MET - [facility] - Has Care Guidelines CARE PROVIDERS TIEN NICHOLSON Internal Medicine 05/28/2018-Current PHONE: Unknown Karena has no Care Guidelines for this patient. Care History Medical/Surgical 09/24/2019 [facility], patient has been non compliant, missing every appointment for September (09/03,,,,).\T\nbsp; Laura at [facility] stated patient has been keeping scheduled appointments with them.\ T\nbsp; Left voice mail for return call from patient to see if there is any way I can assist in following through with dialysis. 04/15/2019 [facility] Patient still non compliant.\T\nbsp; Has made attempts to stay for full dialysis treatment, but still having anxiety that prevents her from sticking it out.\T\nbsp;\T\nbsp; Next scheduled appointment is 04/23/[address] Lind. 03/13/2019 [facility] Patient has history of anxiety when going through 4 hours of dialysis.\T\nbsp; I asked her if she needed company on next dialysis visit and she said no.\T\ nbsp; Patient stated that she is working with PCP to find best Rx for anxiety. Next scheduled visit with PCP Gavin is not until 07/16/2019.\T\nbsp; Pt needs to make ED follow up visit. Timothy VISIT COUNT (12 MO.) 5 [facility] 9 AM[facility] TOTAL 14 NOTE: Visits indicate total known visits. ED/UCC VISIT TRACKING (12 MO.) 12/21/2019 22:45 [facility] [place] TYPE: Emergency COMPLAINT: - CHEST TIGHTNESS/SOB/NAUSEA 10/13/2019 22:41 [facility] TYPE: Emergency DIAGNOSES: - Shortness of Breath - Dependence on renal dialysis - Pleural effusion, not elsewhere classified - End stage renal disease 09/22/2019 20:44 [facility] TYPE: Emergency COMPLAINT: - STABBING RIB PAIN DIAGNOSES: - Radiographic dye allergy status - Other retirement (current) drug therapy - Allergy status to other drugs, medicaments and biological sub - Other chest pain 07/14/2019 15:26 [facility] TYPE: Emergency DIAGNOSES: - Medical Problem (Major) - Dependence on renal dialysis - Acute pulmonary edema - HD - Shortness of breath - End stage renal disease 07/14/2019 10:36 [facility] [place] TYPE: Emergency COMPLAINT: - CHEST PAIN, SOB DIAGNOSES: - Anxiety disorder, unspecified - Allergy status to analgesic agent status - Other termite control service representative (current) drug therapy - Pleural effusion, not elsewhere classified - Shortness of breath - Patient's noncompliance with renal dialysis - Hypoxemia - Radiographic dye allergy status - Allergy status to other drugs, medicaments and biological sub - Fluid overload, unspecified - Chronic kidney disease, unspecified 04/18/2019 11:38 [facility] TYPE: Emergency DIAGNOSES: - End stage renal disease - Dependence on renal dialysis - Patient's noncompliance with renal dialysis - Chondrocostal junction syndrome [Tietze] - Chest Pain - Fluid overload, unspecified - Shortness of Breath - Pleural effusion, not elsewhere classified 04/13/2019 18:34 [facility] TYPE: Emergency COMPLAINT: - CHEST PAIN DIAGNOSES: - Chest pain, unspecified - Other chronic pain - Allergy status to narcotic agent status - Other retirement (current) drug therapy - Pleural effusion, not [...] status to narcotic agent status - Other termite control service representative [...] - Radiographic dye allergy status - Other retirement (current) drug therapy - End stage renal [...] control service representative (current) drug therapy - Cough - Fluid overload, unspecified 01/23/2019 22:10 [facility] TYPE: Emergency DIAGNOSES: - Shortness of breath - Shortness of Breath - Dependence on renal dialysis - End stage renal disease - Pleural effusion, not elsewhere classified 01/07/2019 01:31 [facility] TYPE: Emergency DIAGNOSES: - Dependence on renal dialysis - Hyperkalemia - End stage renal disease - Acute respiratory distress - Hypertension - High Potassium 01/06/2019 19:30 [facility] TYPE: Emergency COMPLAINT: - CHEST PAIN, SOB DIAGNOSES: - Allergy status to narcotic agent status - Other termite control service representative (current) drug therapy - Hyperkalemia - Dyspnea, [...] breath - Pleural effusion, not elsewhere classified INPATIENT VISIT TRACKING (12 MO.) 07/14/2019 15:26 [facility] TYPE: Internal Medicine DIAGNOSES: - Pleural [...] - Dependence on renal dialysis 04/18/2019 11:38 [facility] TYPE: Internal Medicine DIAGNOSES: - Fluid overload, [...] (congestive) and diastolic - Chondrocostal junction syndrome [Kayatze] - Anemia in chronic kidney disease - 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
--- NOTE | 2019-12-22 17:34 | EKG ---
[facility] [address] [place] [address] Signed Normal sinus rhythm Left axis deviation Abnormal ECG When compared with ECG of 13-APR-2019 18:39, No significant change was found Confirmed by JACKIE DOLAN MD ([id number]) on 12/22/2019 5:34:04 PM Electronically Signed By: JACKIE DOLAN MD 12/22/19 1734 PATIENT NAME: CONOR LOUISE MAGALY Electrocardiogram DATE OF : [birth year] PHYSICIAN: JACKIE DOLAN MD REPORT #: [id number] REPORT IS CONFIDENTIAL AND NOT TO BE RELEASED WITHOUT AUTHORIZATION
== END 2019-12-22 01:35 | disposition home or self-care (01) ==
LOC: ED 22:44
DX: N18.9 Chronic kidney disease, unspecified (principal); Z87.891 Personal history of nicotine dependence; Z88.5 Allergy status to narcotic agent; Z88.8 Allergy status to other drugs, medicaments and biological substances; Z91.041 Radiographic dye allergy status; Z79.899 Other long term (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
CPT/HCPCS: 71045; 80053; 85025; 93005; 93010; 96372; 99285-25; J2270; J2550

== ENCOUNTER 2019-12-25 21:09 | Emergency (ER) | payer MEDICARE, OTHER ==
[~2019-12-25] VITALS: Ht 170.2 cm; Wt 74.0 kg
--- OUTSIDE RECORDS SUMMARY | ~2019-12-25 | XMS | Encounter Summary ---
Demographics + + + | Address | [address] | | | [place] [address] | + + + | Home Phone [...] + + + | Author | [facility] | | | and [place] | + + + | Organization | [facility] | | | and [place] | + + + | Address | Unknown | + + + | Phone | Unavailable | + + + Support + + +---------+ + | Name | Relationship | Address | Phone | + + +---------+ + | Thania Mallory | ECON | Unknown | | + + +---------+ + | Saundra Marlowjonatan | ECON | Unknown | | + + +---------+ + Care Team Providers + +------+ + | Care Linker Up Name | Role | Phone | + +------+ + PCP | Unavailable | + +------+ + Encounter Details +--------+ + + + + | Date | Type | Department | Care Team | Description | +--------+ + + + + | 12/27/ | Hospital | CC [facility] GENERIC OP | Sudhakar Joy | | | 2010 | Encounter | CONVERSION | MD Emanuel [address] | | | | | [address] | [place] [address] | [place], [place] | | | | | [place], [place] | [address] | | | | | [address] | [phone] | | | | | [phone] | | | +--------+ + + + [...]
--- OUTSIDE RECORDS SUMMARY | ~2019-12-25 | XMS | Encounter Summary ---
Demographics + + + | Address | [address] | | | [place] [address] | + + + | Home Phone | | + + + | Preferred Language | Unknown | + + + | Marital Status | Single | + + + | Restorationism Affiliation | Unknown | + + + | Race | White | + + + | Ethnic Group | Not or | + + + Author + + + | Author | [facility] | | | and [place] | + + + | Organization | [facility] | | | [...] Team Providers + +------+ + | Care Lottery Manager Name | Role | Phone | + +------+ + PCP | Unavailable | + +------+ + Reason for Visit + +--------+ + | Reason | Onset | Comments | | | Date | | + +--------+ + | Medication Refill | 10/01/ | | | | 2015 | | + +--------+ + Encounter Details +--------+--------+ + + + | Date | Type | Department | Care Team | Description | +--------+--------+ + + + | 10/01/ | Refill | [facility] [place] | Daniela Ibarra, | Medication Refill | | 2015 | | NEPHROLOGY [address] | [address] | | | | | [address] | [address] [place] | | | | | [place], [place] | [place] [address] | | | | | [address] | [phone] | | | | | [phone] | | | +--------+--------+ + + + Social History + +-------+ [...]
--- OUTSIDE RECORDS SUMMARY | ~2019-12-25 | XMS | Encounter Summary ---
Demographics + + + | Address | [address] | | | [place] [address] | + + + | Home Phone [...] Author + + + | Author | [facility] | | | and [place] | + + + | Organization | [facility] | | [...] Team Providers + +------+ + | Care Inseam Trimming Machine Operator Name | Role | Phone | + +------+ + PCP | Unavailable | + +------+ + Encounter Details +--------+ + + + + | Date | Type | Department | Care Team | Description | +--------+ + + + + | 12/29/ | Abstract | [facility] | Jorje Camp | | | 2017 | | NEPHROLOGY [address] | M, DO [address] | | | | | [address] | [address] [place] | | | | | [place], [place] | [place] [address] | | | | | [address] | [phone] | | | | | [phone] | | | +--------+ + + + [...] documented as of this encounter Progress Notes Marilyn Palumbo - 12/29/2016 3:48 PM PDTOutside records: [facility] confidential health information for Verna-Suresh RX 60.0MG/300.0MCG/10.0MG Tablet. Dos : 12/29/16. Sent to [facility]. P DTdocumented in this encounter Plan of Treatment Not on filedocumented as of this encounter Visit Diagnoses Not on filedocumented in this encounter"
--- OUTSIDE RECORDS SUMMARY | ~2019-12-25 | XMS | Encounter Summary ---
Demographics + + + | Address | [address] | | | [place] [address] | + + + | Home Phone [...] Author + + + | Author | [facility] | | | and [place] | + + + | Organization | [facility] | | | [...] Team Providers + +------+ + | Care Wireless Sales Associate Name | Role | Phone | + +------+ + | Jonathan Alonso MD | PCP | | + +------+ + Reason for Visit + +--------+ + | Reason | Onset | Comments | | | Date | | + +--------+ + | CHF Management | 07/24/ | CHF quality measures | | | 2019 | | + +--------+ + Encounter Details +--------+ + + + + | Date | Type | Department | Care Team | Description | +--------+ + + + + | 07/24/ | Telephone | [facility] | Saundra Pineda RN | CHF Management (CHF | | 2020 | | [address] | | quality measures) | | | | [place] | | | | | | [address] | | | | | | [phone] | | | +--------+ + + + + Social History + +-------+ +--------+ + [...] do you have serious | No | 07/14/2019 | | difficulty hearing? | | | + + + + | Are you blind or do you have serious | No | 07/14/2019 | | difficulty seeing, even when wearing | | | | glasses? | | | + + + + | Do you have serious difficulty walking or | No | 07/14/2019 | | climbing stairs? (5 years old or older) | | | + + + + | Do you have difficulty dressing or bathing? | No | 07/14/2019 | | (5 years old or older) | | | + + + + | Because of a physical, mental, or emotional | No | 07/14/2019 | | condition, do you have difficulty [...] physical, mental, or emotional | No | 07/14/2019 | | condition, do you have serious difficulty | | | | concentrating, remembering, or making | | | | decisions? (5 years old or older) | | | + + + + documented as of this encounter Miscellaneous Notes Telephone Encounter - Saundra Pineda RN - 07/25/2019 10:26 AM PDTReviewed chart for CHF qu ality measures documented in this enc ounter Plan of Treatment Not on filedocumented as of this encounter Visit Diagnoses Not on filedocumented in this encounter"
--- OUTSIDE RECORDS SUMMARY | ~2019-12-25 | XMS | Encounter Summary ---
Demographics + + + | Address | [address] | | | [place] [address] | + + + | Home Phone [...] Author + + + | Author | [facility] | | | and [place] | + + + | Organization | [facility] | | | [...] Team Providers + +------+ + | Care Authors Motivational Name | Role | Phone | + [...] [address] | | | | | ([facility]) | [address] | [address] | | | | | Anemia in | [place], [place] | [place], | | | | | ESRD | [address] | [place] [address] | | | | | (end-stage | Phone: | Phone: | | | | | renal | [phone] | [phone] | | | | | disease) | Fax: | Fax: | | | | | ([facility]) | [phone] | [phone] | | | | | Procedures | | | | | | | AR OFFICE | | | | | | | OUTPATIENT | | | | | | | VISIT 25 | | | | | | | MINUTES | | | +--------+--------+ + + + + Encounter Details +--------+ + + + + | Date | Type | Department | Care Team | Description | +--------+ + + + + | 01/02/ | Off-Site | [facility] [place] | Jorje Camp | ESRD (end stage | | 2017 | Visit | NEPHROLOGY [address] | M, DO [address] | renal disease) ([facility]) | | | | [address] | [address] [place] | (Primary Dx) | | | | [place], [place] | [place] [address] | | | | | [address] | [phone] | | | | | [phone] | | | +--------+ + + + [...] + + + | Blood Pressure | 147/101 | 01/02/2017 5:15 PM | | | | | PDT | | + + + + + | Pulse | - | - | | + + + + + | Temperature | 36.7 C (98 F) | 01/02/2017 5:15 PM | | | | | PDT [...] encounter Progress Notes Jorje Camp DO - 01/02/2017 10:00 AM PDT Subjective: DIALYSIS NOTE Patient ID: Dara Weldon is a 21 y.o. female. 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 She also has anemia secondary to CKD, SHPTH, centripetal obesity. Unfortunately, she has been consistent in her pattern of missed treatments. On average she is dialyzing to treatment/week. I've explained to her that this under dialysis, compounded by elevated PTH, hyperphosphatemia lysis her at risk for increased CV disease, and calciphy laxis potentially. There is been strongly recommended to her by the entire renal team that she should undergo some outpatient counseling. She has been resistant to this idea in the p ast. Current Outpatient Prescriptions: albuterol 90 mcg/puff inhaler, Inhale 2 puffs into the lungs every 6 hours as needed f or Wheezing., Disp: 1 Inhaler, Rfl: 11 cinacalcet (SENSIPAR) 90 MG tablet, Take 1 tablet by mouth Daily (with dinner)., Disp: 30 tablet, Rfl: 11 clopidogrel (PLAVIX) 75 mg tablet, Take 1 tablet by mouth Daily., Disp: 30 tablet, Rfl : 11 doxercalciferol (HECTOROL) 2 mcg/mL injection, Inject 2.5 mcg into the vein Three time s a week. Per dialysis clinic protocol, Disp: , Rfl: epoetin jenna (EPOGEN,PROCRIT) 3,000 units/mL injection, Inject 15,000 Units under the skin Three times a week., Disp: , Rfl: hydrOXYzine (ATARAX) 50 MG tablet, Take 1 tablet by mouth nightly as needed for Itchin g., Disp: 60 tablet, Rfl: 1 iron sucrose (VENOFER) 20 mg/mL injection, Inject 2.5 mLs into the vein Once a week., Disp: , Rfl: norethindrone (MICRONOR) 0.35 MG tablet, Take 1 tablet by mouth Daily., Disp: 28 table t, Rfl: 11 27-0.8 mg multivitamin tablet, Take 1 tablet by mouth Daily., Disp: 30 tablet , Rfl: 11 sevelamer carbonate (RENVELA) 800 mg tablet, Take 4 tablets by mouth with meals and 3 tablets with snacks, Disp: 360 tablet, Rfl: 11 Allergies Allergen Reactions Adhesive & Tape Rash Certain tapes Morphine Itching and Rash Objective: BP (!) 147/101 | Temp 36.7 C (98 F) EDW 97.5 kg Physical Exam Heart: Regular rate and rhythm with no S3, S4, murmur or rub. Lungs: CTA bilaterally. No rales or wheezes. Abdomen: Soft, obese, nontender, normoactive bowel sounds.. Extremities: No clubbing, cyanosis, or edema. LAB: BUN 81, Cr 17.1, K+ 5.2, HCO3 17, Ca++ 9.5, PO4 10.4, PTH 1893, albumin 3.9, Hb 10.6, eKT/V = 1.59. Assessment: 1. ESRD-- despite her adequacy she is chronically under dialyzed. I'm afraid that she swanson s acute related positive fluid balance. However she is not in acute CHF today. 2. Hypertension--suboptimal control related to suboptimal fluid management due to missed t reatments. 3. SHPTH-- PTH is markedly abnormal. She refuses PTH ectomy. She has been clearly warned regarding the risks. 4. Nutrition-- albumin is relatively stable today. 6. Anemia-- Hb is stable, moderately high dose of EPO. Will recheck her iron stores next month. 7. Centripetal obesity--see above. 8. 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 9. Transplantation-- she appears to lack the maturity level or insight into her CKD and gl obal health to be successful at this? She would be at significant risk for allograft loss, in her current frame of mind, I am afraid. Plan: 1. I had a lengthy discussion with Dara about her potential risk for mortality, CV disea se, and warm portly calciphylaxis. She is alert and oriented 3 during this discussion. 2. I discussed that the main way to improve survival long-term, is to have her undergo all of her prescribed 4 hour treatments 3 times/week. 3. I told her that if she should change her mind about counseling or parathyroidectomy she should let myself or the charge accounts audit clerk no. She will be rechecked in 2 weeks. : [facility] documented in t his encounter Plan of Treatment Not on filedocumented as of this encounter Visit Diagnoses + + | Diagnosis | + + | ESRD (end stage renal disease) (HCC) - Primary End stage renal disease | + + documented in this encounter"
--- OUTSIDE RECORDS SUMMARY | ~2019-12-25 | XMS | Encounter Summary ---
Demographics + + + | Address | [address] | | | [place] [address] | + + + | Home Phone [...] Author + + + | Author | [facility] | | | and [place] | + + + | Organization | [facility] | | [...] Providers + +------+ + | Care Cartridge Loader Name | Role | Phone | [...] | | | | | ([facility]) | [address] | [address] | | | | | Anemia in | [place], [place] | [place], | | | | | ESRD | [address] | [place] [address] | | | | | (end-stage | Phone: | Phone: | | | | | renal | [phone] | [phone] | | | | | disease) | Fax: | Fax: | | | | | ([facility]) | [phone] | [phone] | | | | | Procedures | | | | | | | SD OFFICE | | | | | | | OUTPATIENT | | | | | | | VISIT 25 | | | | | | | MINUTES | | | +--------+--------+ + + + + Encounter Details +--------+ + + + + | Date | Type | Department | Care Team | Description | +--------+ + + + + | 03/02/ | Off-Site | [facility] | Jorje Camp | Anemia in ESRD | | 2015 | Visit | NEPHROLOGY [address] | M, DO [address] | (end-stage renal | | | | [address] | [address] [place] | disease) ([facility]) | | | | [place], [place] | [place] [address] | (Primary Dx); ESRD | | | | [address] | [phone] | (end stage renal | | | | [phone] | | disease) ([facility]) | +--------+ + + + + [...] + + + | Blood Pressure | 113/59 | 03/03/2015 10:59 AM | | | | | PST | | + + + + + | Pulse | - | - | | + + + + + | Temperature | 36.7 C (98.1 F) | 03/03/2015 10:59 AM | | | | | PST [...] this encounter Progress Jorje Grissom DO - 03/03/2015 10:58 AM PST Subjective: DIALYSIS NOTE Patient ID: Dara Weldon is a 20 y.o. female. 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 She also has anemia secondary to CKD, SHPTH, centripetal obesity . She is contemplating going to any college. Unfortunately she is not working at the present time or going to class. She still struggles with intradialytic weight gains, and phosphorus con trol. Unfortunately, she still appears to have a very fragile social support system? Outpatient Prescriptions Marked as Taking for the 03/02/15 encounter (Off-Site Visit) with Jorje Camp DO [...] tapes Morphine Itching and Rash Objective: BP 113/59 mmHg | Temp(Src) 36.7 C (98.1 F) EDW 100.5 kg Physical Exam Heart: Regular rate and rhythm with no S3, S4, murmur or rub. Lungs: CTA bilaterally. No rales or wheezes. Abdomen: Soft, obese, nontender, normoactive bowel sounds, no CVA tenderness.. Extremities: No clubbing, cyanosis, or edema. QB 400 at left arm AVF. LAB: BUN 53, Cr 10.0, K+ 4.4, HCO3 24, Ca++ 10.3, phosphorus 8.4, albumin 4.7, PTH 599, Hb 12.2, eKT/V = 1.76 . Assessment: 1. ESRD-- Overall, except for her extraneous fluid gains she appears stable on 4.5 hours, A21S, 2K +, QB 450, QD 600, thrice weekly. 2. Hypertension--from review of her treatment data in [facility], BP appears stable at her current dry weight. 3. SHPTH--I reviewed with Dara features of a 1000 mg phosphorus restriction. I discusse d with her about timing her Renvela exactly AC&HS. I also reviewed with her potential for e nd organ damage related to metastatic calcification from chronic hyperphosphatemia. She was alert and oriented 3 during this discussion. 4. Nutrition--excellent on her current Rx. 5. Transplantation-- honestly , I think that Dara is too immature to monitor a renal all ograft and its attendant immunosuppression at this point. My gut feeling is that she would be at high risk for graft loss due to noncompliance ? Hopefully, with time, her behavior wi ll change . 6. Anemia--EPO has been on hold until Hb <11.0 g/dl. Will recheck her iron profile next [facility]. Plan: 1. Again, I counseled Dara length about the pitfalls of chronic hyperphosphatemia and its potential morbidity. 2. Will recheck her PTH, and iron profile with monthly lab next month. Will continue to h old her EPO as above until hemoglobin is closer to 10.0-11.0 g/dl. 3. To her credit, she does bring her Renvela capsules in a container here to clinic, at th e chairside. 4. Will recheck her in 2 weeks. CC: [place] Fina Joy MD, [facility], [facility] Electron ically signed by Jorje Camp DO at 03/03/2015 11:12 AM PSTdocumented in this encount er Plan of Treatment Not on filedocumented as of this encounter Visit Diagnoses + + | Diagnosis | + + | Anemia in ESRD (end-stage renal disease) ([facility]) - Primary Anemia in chronic kidney | | disease | + + | ESRD (end stage renal disease) ([facility]) End stage renal disease | + + documented in this encounter"
--- OUTSIDE RECORDS SUMMARY | ~2019-12-25 | XMS | Encounter Summary ---
Demographics + + + | Address | [address] | | | [place] [address] | + + + | Home Phone [...] Author + + + | Author | [facility] | | | and [place] | + + + | Organization | [facility] | | | [...] Team Providers + +------+ + | Care Deer Farmer Name | Role | Phone | + +------+ + PCP | Unavailable | + +------+ + Encounter Details +--------+ + + + + | Date | Type | Department | Care Team | Description | +--------+ + + + + | 01/20/ | Documentati | [facility] | Jorje Camp | | | 2013 | on | NEPHROLOGY [address] | M, DO [address] | | | | | [address] | [address] [place] | | | | | [place], [place] | [place] [address] | | | | | [address] | [phone] | | | | | [phone] | | | +--------+ + + + [...] this encounter Progress Notes Marilyn Palumbo - 01/20/2014 9:[address] Camp's progress note from 12/30/13 to [facility] (fx: [phone]) on 01/20/14. documented in this encounter Plan of Treatment Not on filedocumented as of this encounter Visit Diagnoses Not on filedocumented in this encounter"
--- OUTSIDE RECORDS SUMMARY | ~2019-12-25 | XMS | Encounter Summary ---
Demographics + + + | Address | [address] | | | [place] [address] | + + + | Home Phone [...] Author + + + | Author | [facility] | | | and [place] | + + + | Organization | [facility] | | | and [...] Team Providers + +------+ + | Care Dance Critic Name | Role | Phone | + +------+ + | Tien Nicholson MD | PCP | | + +------+ + Encounter Details +--------+ + + + + | Date | Type | Department | Care Team | Description | +--------+ + + + + | 05/26/ | Hospital | [facility] | Mayco Rizvi MD | Chest pain, | | 2019 - | Encounter | [facility] | [address] | unspecified type; | | | | CARE FLOOR [address] | [address] [place], [place] | Hypoalbuminemia; | | 06/01/ | | [address] | [address] | Anemia in ESRD | | 2019 | | [place], [place] | | (end-stage renal | | | | [address] | | disease) (FORM[facility]LY [facility]); | | | | [phone] | | End-stage renal | | | | | | disease on | | | | | | hemodialysis ([facility]); | | | | | | Pleural effusion on | | | | | | right; Other | | | | | | ascites; Acute | | | | | | respiratory | | | | | | distress; | | | | | | Hyperkalemia; | | | | | | Hyperphosphatemia; | | | | | | At high risk for | | | | | | electrolyte | | | | | | imbalance; Acute | | | | | | systolic CHF | | | | | | (congestive heart | | | | | | failure) ([facility]LY [facility]) | +--------+ + + + + Social [...] | Blood Pressure | 137/96 | 06/01/2018 2:30 PM | | | | | PDT | | + + + + + | Pulse | 82 | 06/01/2018 2:30 PM | | | | | PDT | | + + + + + | Temperature | 37.1 C (98.7 F) | 06/01/2018 2:30 PM | | | | | PDT | | + + + + + | Respiratory Rate | 16 | 06/01/2018 2:30 PM | | | | | PDT | | + + + + + | Oxygen Saturation | - | - | | + + + + + | Inhaled Oxygen | - | - | | | Concentration | | | | + + + + + | Weight | 67.2 kg (148 lb 2.4 | 06/01/2018 2:30 PM | | | | oz) | PDT | | + + + + + | Height | 170.2 cm (5' 7") | 06/01/2018 2:30 PM | | | | | PDT | | + + + + + | Body Mass Index | 23.2 | 06/01/2018 2:30 PM | | | | | PDT | | + + + + + documented in this encounter Discharge Summaries Darell Rossi - 06/01/2018 9:59 AM PDT Discharge Summaries by Draell Rossi MD at 06/01/18958 Author: Darell Rossi MD Service: Hospitalist Author Type: Physician Filed: 06/15/18 1207 Date of Service: 06/01/18958 Status: Addendum Faculty Research Physician: Darell Rossi MD (Physician) Related Notes: Original Note by Darell Rossi MD (Physician) filed at 06/04/18 5731 [facility] Service: Hospitalist Physician Discharge Summary Pt: Dara Louise AGE/SEX: 23 y.o. female ROOM: 4441/4441-1 PCP: TIEN NICHOLSON : 1995 Admit date: 05/26/2018 Discharge date and time: 06/01/2018 9:59 AM Admitting Physician: Mayco Rizvi MD Discharge Physician: Darell Rossi MD Consults: Dr. Annmarie Mahmood Primary Discharge Diagnoses: Principal Problem: Acute systolic CHF (congestive heart failure) (HCC) Active Problems: ESRD on hemodialysis SOB (shortness of breath) Pleural effusion on right Non-compliance Chronic systolic heart failure (HCC) Hyperphosphatemia Hyperkalemia Pulmonary artery hypertension (HCC) Non-rheumatic tricuspid valve insufficiency Non-rheumatic mitral regurgitation Diastolic dysfunction with chronic heart failure (HCC) At high risk for electrolyte imbalance Transaminitis Resolved Problems: * No resolved hospital problems. * Secondary Discharge Diagnoses: NIll Discharged Condition: stable Significant Diagnostic Studies/Procedures: Xr Chest 2 View Result Date: 05/27/2018 [...] 17. The mitral valve is normal. 18. Sjty-mo-zvapx ate eccentric mitral regurgitation is present. 19. [...] Quang Bustos Sign Date/Time: 05/29/2018 3:39 PM HPI and Hospital Course: 23-year-old female with past medical history of end-stage renal disease on hemodialysis Mon, hypertension, anemia of chronic disease who went to [facility] with increasing shortness of breath found to have right pleural effusion who was transfer red to [facility] underwent right-sided diagnostic and therapeutic thoracocentesis with removal of 1 L of fluid likely transudative, Gram stain and cultures negative so far and al so had high volume paracentesis 4 L in the emergency department. Patient was started on Ro cephin and azithromycin for possible pneumonia which was stopped as CT scan was negative for any pneumonia. Patient underwent CT scan of the chest which showed complete collapse of t he right lower and middle lobe with partial collapse of right upper lobe. Patient echocardiogram came back and showed ejection fraction of 25% and cardiology consult ed. She is feeling much better today. She got hemodialysis today. We tested for home oxygen requirement and she is not requiring any oxygen.. She is not on [place]/ARB as she had a history of hyperkalemia with that. I discussed with the sales development manager as well regarding not being on [place]/ARB. Follow Up Labs/Imaging and Monitoring: Cardiology Discharge Vitals: Vitals: 06/01/18 0900 06/01/18 0915 06/01/18 0930 06/01/18 0945 BP: 141/89 136/76 131/73 140/77 Pulse: 86 85 81 85 Resp: 16 16 16 16 Temp: TempSrc: SpO2: 98% 98% 99% 95% Weight: Height: Discharge Exam: Constitutional: Alert and oriented to person, place, and time. . Cardiovascular: Normal rate, regular rhythm, normal heart sounds with S1 and S2 and intact distal pulses. Exam reveals no gallop and no friction rub. No murmur heard. Pulmonary/Chest: Decreased air entry bilateral Abdominal: Soft. Bowel sounds are normal. [...] Not suicida l LABS: Recent Labs Lab 06/01/1844205/31/18 0504 05/30/188 WBC 5.40 4.57 4.80 HGB 10.7* 10.9* 10.7* HCT 32.4* 32.9* 31.7* PLT 119* 107* 118* NEUTOPHILPCT 54.51 55.65 58.60 MONOPCT 8.93 7.18 6.15 Recent Labs Lab 06/01/1844205/31/18 0504 05/30/188 NA 139 139 138 K 4.7 4.3 3.8 CL 101 99 97* CO2 33* 32 31 BUN 27* 19 34* CREATININE 7.2* 5.6* 7.8* PROT 6.5 6.6 6.4 BILITOT 0.8 0.9 0.8 ALT 231* 299* 375* AST 97* 134* 182* Recent Labs Lab 05/27/18 0425 MG 2.7* Recent Labs Lab 05/29/18 0852 05/26/18 1214 APTT 29 29 INR 1.5 1.6 Recent Labs Lab 05/28/18 1359 05/28/18 0923 05/26/18 1214 CKTOTAL -- -- 291* TROPONINI 0.037 0.034 -- CKMBINDEX -- -- 2.7 Results Procedure Component Value Units Date/Time Culture, Body Fluid [[id number]] Collected: 05/26/18 1412 Specimen: Body Fluid from Pleural Fluid Updated: 05/30/18 0733 Specimen Description PLEURAL FLUID GRAM STAIN WBC'S SEEN GRAM STAIN NO ORGANISMS SEEN GRAM STAIN STAIN PERFORMED ON CYTOSPIN CULTURE NO GROWTH 4 DAYS Culture, Body Fluid [[id number]] Collected: 05/26/18 1513 Specimen: Other from Ascites Fluid Updated: 05/30/18 0732 Specimen Description ASCITES FLUID GRAM STAIN STAIN PERFORMED ON CYTOSPIN GRAM STAIN WBC'S SEEN GRAM STAIN NO EPITHELIAL CELLS SEEN GRAM STAIN NO ORGANISMS SEEN CULTURE NO GROWTH 4 DAYS Gram stain [[id number]] Collected: 05/29/18 1256 Specimen: Sputum from Thoracic Fluid Updated: 05/29/18 4229 Specimen Description THORACIC FLUID CULTURE 1+ WBC'S SEEN NO ORGANISMS SEEN Lactate dehydrogenase, body fluid [[id number]] Collected: 05/29/18 1256 Specimen: Body Fluid from Pleural, Right Updated: 05/29/18 1619 FLUID LDH 151 U/L Cholesterol, body fluid [[id number]] Collected: 05/29/18 1256 Specimen: Body Fluid from Pleural, Right Updated: 05/29/18 1619 FLUID CHOLESTEROL 56 mg/dL Disposition: Home or Self Care Patient Instructions: Medication List START taking these medications hydrALAZINE 50 MG tablet QTY: 90 tablet Refills: 3 Commonly known as: APRESOLINE Take 1 tablet by mouth 3 (three) times daily. isosorbide dinitrate 40 MG tablet QTY: 90 tablet Refills: 2 Commonly known as: ISORDIL Take 1 tablet by mouth 3 (three) times daily. metoprolol 25 MG 24 hr tablet QTY: 30 tablet Refills: 2 Commonly known as: TOPROL-XL Take 1 tablet by mouth daily. Start taking on: 06/02/2018 pantoprazole 40 MG tablet QTY: 30 tablet Refills: 1 Commonly known as: PROTONIX Take 1 tablet by mouth every morning before breakfast for 60 days. Start taking on: 06/02/2018 sevelamer 800 MG tablet QTY: 180 tablet Refills: 2 Commonly known as: RENVELA Take 2 tablets by mouth 3 (three) times daily with meals. CONTINUE taking these medications clopidogrel 75 MG tablet Refills: 0 Commonly known as: PLAVIX HYDROcodone-acetaminophen 5-325 MG per tablet Refills: 0 Commonly known as: NORCO ondansetron 4 MG tablet Refills: 0 Commonly known as: ZOFRAN PARSABIV IV Refills: 0 VELPHORO 500 MG chewable tablet Refills: 0 Generic drug: sucroferric oxyhydroxide You might also be taking other medications not listed above. If you have questions about an y of your other medications, talk to the person who prescribed them or your Primary Care Pro vider. STOP taking these medications citalopram 20 MG tablet Commonly known as: CeleXA doxycycline 100 MG tablet Commonly known as: VIBRA-TABS losartan 100 MG tablet Commonly known as: COZAAR Where to Get Your Medications You can get these medications from any pharmacy Bring a paper prescription for each of these medications hydrALAZINE 50 MG tablet isosorbide dinitrate 40 MG tablet metoprolol 25 MG 24 hr tablet pantoprazole 40 MG tablet sevelamer 800 MG tablet Activity: activity as tolerated Diet: cardiac diet and renal diet Wound Care: as directed Discharge medications reconciliation was completed by myself. I carefully reviewed all the medications with the patient. All the dosages was confirmed with the patient to the best o f patient's knowledge. I resumed most of his home medication after talking to the patient. I informed the patien t that, If you are not taking any of those medicines or if you think that dose is not righ t please talk to the primary care doctor for adjustment of doses and medications. Please reyes e all the medication to your PCP and show him what medication you are taking so that he can adjust your medications if needed. Follow-Up: Tien Nicholson MD [address], [address] [place] [address] In 1 week Carolina Mahmood DO [address] [place] [address] In 1 week Daniela Ibarra MD [address] [place] [address] In 1 week Discharge took more than 35 minutes, to include final examination, discussion of admission, and preparation of prescriptions, instructions for ongoing care, follow up and dictation of summary. Signed: DARELL ROSSI MD 06/01/2018 9:59 AM Dictation software, Adzilla, used which may contain error for similar sounding words even af ter review. Personal communication requested for any clarification. Portions of this chart may have been copied from previous notes for continuity of care purp ose documented in this encount er Medications at Time of Discharge + + [...] renal disease) ([facility]) | protocol | | | | | + + + +---------+ + + | epoetin jenna | Inject 0.4 mLs | | 0 | 20 | | | (EPOGEN) 20,000 | (8,000 [...] Progress Notes Conversion Transaction, Provider Unknown - 06/01/2018 3:06 PM PDTFormatting of this note m ight be different from the original. Progress Notes by Tino Paiz CRT at 06/01/18 150 Author: Tino Paiz CRT Service: (none) Author Type: Certified Respiratory Therapi st Filed: 06/01/181505 Date of Service: 06/01/181505 Status: Signed Faculty Research Physician: Tino Paiz CRT (Certified Respiratory Therapist) [facility] Department of Respiratory Jail Oxygen Evaluation (Evaluation is valid for 48 [...] A VALID ORDER Physician Signature: Date: Time: onver arturo Transaction, Provider Unknown - 06/01/2018 3:00 PM PDT Nurse Progress Note by Autumn Moy RN at 06/01/18 1500 Author: Autumn Moy RN Service: (none) Author Type: Registered Nurse Filed: 06/01/18 1552 Date of Service: 06/01/18 1500 Status: Signed Faculty Research Physician: Autumn Moy RN (Registered Nurse) Pt was given d/c instructions including Rx, need to make follow-up appts, s/s that warrant call to MD or return to ED, pt also given CHF education packet and recommended diet for kota ents on dialysis, pt verbalized understanding, denied any further questions or concerns, IV was removed, tele removed and tele monitor informed, pt requested wheelchair for transport o ff the floor onver arturo Transaction, Provider Unknown - 06/01/2018 12:48 PM PDT Case Management by Leanna Ariza RN at 06/01/18 6818 Author: Leanna Ariza RN Service: (none) Author Type: Registered Nurse Filed: 06/01/18 1250 Date of Service: 06/01/18 1248 Status: Signed Faculty Research Physician: Leanna Ariza RN (Registered Nurse) Pt will d/c home today --already established on HD/[place] MWF --will have O2 eval today No other needs Angela Antonio Carrasco MD - 06/01/2018 10:52 AM PDTFormatting of this note might be different from the orig inal. Progress Notes by Antonio Benjamin MD at 06/01/18 1052 Author: Antonio Benjamin MD Service: Nephrology Author Type: Physician Filed: 06/05/18 1253 Date of Service: 06/01/18 1052 Status: Signed Faculty Research Physician: Antonio Benjamin MD (Physician) [facility] Service: NEPHROLOGY Dialysis/ Progress Note Dara Louise 23 y.o. [phone] [id number] female [facility] Day: LOS: 6 days Patient with PMH as listed below admitted with symptomatic large right sided pleural effusi on Nephrology consulted for evaluation and management of ESRD CHRONIC SEVERE ASSOCIATED WITH FLUID ELECTROLYTE IMBALANCES Assess need for hd/uf SUBJECTIVE Seen and examined on hd with hd rn tolerating hd/ uf well Access functioning well HD FLOW SHEET REVIEWED Feels better No CHEST PAIN, SOB, NAUSEA, VOMITING, DIARRHEA, FEVER, COUGH, HEADACHE Past Medical History Diagnosis Date Anemia Clotted dialysis access (HCC) 2014 ESRD (end stage renal disease) (HCC) HSP (Henoch-Schonlein purpura) nephritis Hypertension Past Surgical History Procedure Laterality Date ABDOMINAL SURGERY AV FISTULA PLACEMENT AV FISTULA PLACEMENT Left 04/08/2014 Procedure: AV FISTULA; Surgeon: Rik Simon MD; Location: [facility] MAIN OR; Service: Vascula r; Laterality: Left; cephalic AV FISTULA REPAIR Left 03/07/2014 Procedure: AV FISTULA - GRAFT REPAIR/REVISION; Surgeon: Rik Simon MD; Location: [facility] IN OR; Service: Vascular; Laterality: Left; DECLOT GRAFT Left 03/07/2014 Procedure: GRAFT - DECLOT; Surgeon: Rik Simon MD; Location: [facility] OR; Service: Vas cular; Laterality: Left; DIALYSIS FISTULA CREATION N/A 04/08/2014 Procedure: DIALYSIS CATHETER - INSERTION; Surgeon: Rik Simon MD; Location: [facility] OR ; Service: Vascular; Laterality: N/A; tunneled catheter LAPAROSCOPIC PERITONEAL DIALYSIS CATHETER INSERTION x2 LAPAROSCOPIC PERITONEAL DIALYSIS CATHETER INSERTION Right 07/2013 current dialysis access MWF dialysis RENAL BIOPSY SUPERFICIALIZATION OF AV FISTULA Left 06/24/2014 Procedure: AV FISTULA - SUPERFICIALIZATION; Surgeon: Rik Simon MD; Location: [facility] OR; Service: Vascular; Laterality: Left; History reviewed. No pertinent family history. Social History Social History Marital status: Single Spouse name: N/A Number of children: N/A Years of education: N/A Occupational History Not on file. Social History Main Topics Smoking status: Former Smoker Packs/day: 0.50 Years: 0.50 Smokeless tobacco: Never Used Alcohol use Yes Comment: occassional Drug use: Yes Types: Marijuana Sexual activity: Not on file Other Topics Concern Not on file Social History Narrative No narrative on file Scheduled Medications calcium carbonate 1,000 mg Oral [...] silk tape only OBJECTIVE Vital Signs: BP 131/77 | Pulse 78 | Temp 98 F (36.7 C) (Oral) | Resp 16 | Ht 1.702 m (5' 7") | Wt 69.6 kg (153 lb 7 oz) | SpO2 96% | ? No | BMI 24.03 kg/m I&O Detailed Table: I/O last 3 completed shifts: In: 610 [P.O.:550; I.V.:60] Out: - Weight change: Examination: seen with hd rn APPEARANCE: The patient is lying in no apparent distress. VITALS: Reviewed as listed. EYES: Non-icteric sclera. LUNGS: Decrease bs at right base HEART: S1, S2, no pericardial rub noted. ABDOMEN: Full, soft, no tenderness. EXTREMITIES: no pedal edema noted. NEUROLOGIC: No gross focal motor deficit noted, no Asterixis. PSYCH: The patient is alert and oriented x 3, mood and affect looks ok LUE AVF functioning well LABS: Recent Results (from the past 24 hour(s)) CBC W/Auto Diff (Reflex to Manual) Collection Time: 06/01/18 4:43 AM Result Value Ref Range WBC 5.40 3.80 - 11.00 K/uL RBC 2.95 (L) 3.70 - 5.10 M/uL HGB 10.7 (L) 11.3 - 15.5 g/dL HCT 32.4 (L) 34.0 - 46.0 % MCV 109.7 (H) 80.0 - 100.0 fl MCH 36.2 (H) 27.0 - 34.0 pg MCHC 33.0 32.0 - 35.5 g/dL RDW SD 56.9 (H) 37 - 53 fl PLT 119 (L) 150 - 400 K/uL MPV 9.6 fl DIFF TYPE AUTOMATED NEUTROPHILS 54.51 % LYMPHOCYTES 21.23 % MONOCYTES 8.93 % EOSINOPHILS 14.69 % BASOPHILS 0.64 % NEUTROPHILS ABS 2.94 1.90 - 7.40 K/uL LYMPHOCYTES ABS 1.15 1.00 - 3.90 K/uL MONOCYTES ABS 0.48 0.00 - 0.80 K/uL EOSINOPHILS ABS 0.79 (H) 0.00 - 0.50 K/uL BASOPHILS ABS 0.04 0.00 - 0.10 K/uL MORPHOLOGY 2+ Comprehensive metabolic panel Collection Time: 06/01/18 4:43 AM Result Value Ref Range SODIUM 139 135 - 145 mmol/L POTASSIUM 4.7 3.5 - 4.9 mmol/L CHLORIDE 101 99 - 109 mmol/L CO2 33 (H) 23 - 32 mmol/L ANION GAP AGAP 10 5 - 20 mmol/L GLUCOSE 82 65 - 99 mg/dL BUN 27 (H) 8 - 25 mg/dL CREATININE 7.2 (H) 0.50 - 1.00 mg/dL BUN/CREAT 4 CALCIUM 9.7 8.5 - 10.5 mg/dL TOTAL PROTEIN 6.5 6.3 - 8.2 g/dL Albumin 3.0 (L) 3.6 - 5.0 g/dL GLOBULIN 3.5 1.3 - 4.9 g/dL A/G 0.9 (L) 1.0 - 2.4 TBIL 0.8 0.1 - 1.5 mg/dL ALK PHOS 138 (H) 35 - 115 U/L AST 97 (H) 10 - 45 U/L ALT 231 (H) 10 - 65 U/L EGFR 7 (L) >60 mL/min/1.73m2 Imaging Xr Chest 2 View Result Date: 05/27/2018 [...] X-ray Chest 1 View Result Date: 05/29/2018 CHEST ONE VIEW CLINICAL INFORMATION: Thoracentesis COMPARISON: XR CHEST 2 VIEW FRONTAL AND LATERAL (05/27/2018); CT CHEST WO CONTRAST (05/26/2018); FINDINGS: The heart is enlarged but s table in size. No pulmonary vascular congestion. No pneumothorax. Moderate proven of the right-sided pleural effusion. Right basilar opacity to likely resent atelectasis and/or air space disease. Left lung and pleural spaces clear. Moderate improvement of the right-sided pleural effusion. Right basilar opacity to likely r esent atelectasis and/or airspace disease. Signed by: MD Kush, Xander Sign Date/Time: 05/29 2:32 PM X-ray Chest 1 View Result Date: [...] DARA LOUISE Date of : 1995 Maryjane machado: Robel Yusuf MD ____ INDICATIONS SOB CONCLUSIONS [...] 16. There is no evidence of aortic jaciel nosis. 17. The mitral valve is normal. 18. Sbyj-ka-vvdkqqkp eccentric mitral regurgitation i s present. 19. [...] mitral valve is normal. Mitral Kait ve: Dprq-fc-jkiuzwbc eccentric mitral regurgitation is present. Tricuspid Valve: [...] m/s LVOT VTI: 13.50 cm MV A Hsahid: 0.54 m/s MV DecT: 117.65 ms M V E Shahid: 0.80 m/s MV E/A Ratio: 1.46 Septal e': 0.03 m/s Septal E/e': 26.26 Lateral e': 0.04 m/s Lateral E/e': 16.81 RV S': 0.07 m/s TR maxP.08 mmHg TR Vmax: 2.7 4 m/s Building Tech: MOO Authenticated by: Robel Yusuf MD Report [...] 17. The mitral valve is normal. 18. Gpfw-ib-cxfrl ate eccentric mitral regurgitation is present. 19. [...] Us Thoracentesis (includes Imaging) Result Date: 05/29/2018 ULTRASOUND GUIDED RIGHT THORACENTESIS CLINICAL INFORMATION: therapeutic thoracentesis PROCE DURE: Prior to the procedure, risks and benefits were explained to the patient and informed written and verbal consent obtained. Patient was placed in upright position and location adj acent to pleural fluid marked on the skin using ultrasound guidance and the area prepped and draped in the usual sterile fashion. Using lidocaine for local anesthesia, the pleural spac e is punctured with an 8-Palestinian thoracentesis catheter. Fluid is aspirated without complicat ion. The patient tolerated the procedure well. No immediate complications. Estimated Blood L oss: Minimal. Uncomplicated right thoracentesis. Drainage of 1500 cc [...] At high risk for electrolyte imbalance Transaminitis ASSESSMENT & PLAN ESRD ON HD Seen and examined on [...] for ESRD on hd ANEMIA in ESRD stable EPOGEN TO KEEP HGB 10-11 Lab Results Component Value Date HGB 10.7 (L) 06/01/2018 HGB 10.9 (L) 05/31/2018 HGB 10.7 (L) 05/30/2018 HYPERTENSION Controlled WATCH BP CLOSELY DURING HOSPITALIZATION LOW NA DIET Will adjust BP meds according to BP readings BP Readings from Last 3 Encounters: 06/01/18 131/77 07/09/16 (!) 144/93 09/01/15 113/68 HYPERPHOSPHATEMIA Improving LOW P DIET PO4 BINDERS Renvela with meals Lab Results Component Value Date PHOS 6.3 (H) 05/28/2018 PHOS 8.0 (H) 05/27/2018 HYPOALBUMINEMIA INCREASE PROTEIN INTAKE Lab Results Component Value Date ALB 3.0 (L) 06/01/2018 ALB 3.0 (L) 05/31/2018 ALB 2.9 (L) 05/30/2018 R Pleural Effusion Per primary team CASE DISCUSSED IN DETAIL WITH PATIENT/ care team, ANSWERS ALL QUESTIONS IN DETAIL, VERBALIZ ES UNDERSTANDING ANTONIO BENJAMIN MD 06/01/2018 TIEN NICHOLSON Seen earlier and charting completed later Dictation software, Adzilla, used which may contain error for similar sounding words even af ter review. Personal communication requested for any clarification. Portions of my notes may have been carried over for continuity of care. onversion Transaction, Provider Unknown - 06/01/2018 12:36 AM PDTFormatting of this note might be different from t he original. Nurse Progress Note by Aury Eldridge RN at 06/01/18 003 Author: Aury Eldridge RN Service: (none) Author Type: Registered Nurse Filed: 06/01/18 0632 Date of Service: 06/01/1835 Status: Signed Faculty Research Physician: Aury Eldridge RN (Registered Nurse) Pts VSS. A&O x4. HD scheduled for 729 on 06/01. Pt required x1 dose of PRN phenergan for n ausea and x1 dose of PRN oxycodone for pain of 6/10. No pain on reassessment. No acute mims es in assessment. End of shift chart review completed onver arturo Transaction, Provider Unknown - 05/31/2018 6:41 PM PDT Nurse Progress Note by Romelia Cooley RN at 05/31/181840 Author: Romelia Cooley RN Service: (none) Author Type: Registered Nurse Filed: 05/31/181840 Date of Service: 05/31/181840 Status: Signed Faculty Research Physician: Romelia Cooley RN (Registered Nurse) End of shift chart review complete. Romelia Cooley RN koum, Marnei Mckeon MD - 05/31/2018 11:32 AM PDTFormatting of this note might be different from the candice ginal. Progress Notes by Marnie Anguiano MD at 05/31/18 113 Author: Marnie Anguiano MD Service: Nephrology Author Type: Physician Filed: 05/31/18 1654 Date of Service: 05/31/18 113 Status: Addendum Faculty Research Physician: Marnie Anguiano MD (Physician) Related Notes: Original Note by KRISHNA Waters (Nurse Practitioner) filed at 05/05 10/22 1136 Hospital Problem List: Principal Problem: Acute systolic [...] put on "an antibiotic" for pneumonia at [facility] ED. 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 Marnie Anguiano MD Darell Jang - 2018 9:42 AM PDT Progress Notes by Darell Rossi MD at 05/31/18941 Author: Darell Rossi MD Service: Hospitalist Author Type: Physician Filed: 05/31/1851 Date of Service: 05/31/18941 Status: Signed Faculty Research Physician: Darell Rossi MD (Physician) [facility] Service: Hospitalist Progress Note Pt: Dara Louise AGE/SEX: 23 y.o. female ROOM: [address] [place] [address] : 1995 PCP: TIEN NICHOLSON ADMIT DATE: 05/26/2018 TODAY'S DATE: 05/31/2018 Hospital Day/Hospital Course: LOS: [address] Figueroa 23-year-old female with past medical history of end-stage renal disease on hemodialysis Mon, hypertension, anemia of chronic disease who went to [facility] with increasing shortness of breath found to have right pleural effusion who was transfer red to [facility] underwent right-sided diagnostic and therapeutic thoracocentesis [...] abdominal pain during hemodialysis. N o chest pain,SWANSON. No cough on recumbency. Had no orthopnea [...] Lab 05/31/18 0504 05/30/18 0418 05/29/18 0457 WBC 4.57 4.80 5.44 HGB 10.9* 10.7* [...] Component Value Units Date/Time Culture, Body Fluid [[id number]] Collected: 05/26/18 1412 Specimen: Body Fluid from Pleural Fluid Updated: 05/30/18 0733 Specimen Description PLEURAL FLUID GRAM STAIN WBC'S SEEN GRAM STAIN NO ORGANISMS SEEN GRAM STAIN STAIN PERFORMED ON CYTOSPIN CULTURE NO GROWTH 4 DAYS Culture, Body Fluid [[id number]] Collected: 05/26/18 1513 Specimen: Other from Ascites Fluid Updated: 05/30/18 0732 Specimen Description ASCITES FLUID GRAM STAIN STAIN PERFORMED ON CYTOSPIN GRAM STAIN WBC'S SEEN GRAM STAIN NO EPITHELIAL CELLS SEEN GRAM STAIN NO ORGANISMS SEEN CULTURE NO GROWTH 4 DAYS Gram stain [[id number]] Collected: 05/29/18 1256 Specimen: Sputum from Thoracic Fluid Updated: 05/29/18 2339 Specimen Description THORACIC FLUID CULTURE 1+ WBC'S SEEN NO ORGANISMS SEEN Lactate dehydrogenase, body fluid [[id number]] Collected: 05/29/18 1256 Specimen: Body Fluid from Pleural, Right Updated: 05/29/18 1619 FLUID LDH 151 U/L Cholesterol, body fluid [[id number]] Collected: 05/29/18 1256 Specimen: Body Fluid from Pleural, Right Updated: 05/29/18 1619 FLUID CHOLESTEROL 56 mg/dL Sputum culture [[id number]] Collected: 05/27/182014 Specimen: Sputum from Sputum Updated: [...] 17. The mitral valve is normal. 18. Qegt-kr-uzdcf ate eccentric mitral regurgitation is present. 19. [...] anemia of chronic disease who went to [facility] with increasing shortness of breath due to acute congestive heart failure Acute systolic congestive heart failure with Pleural Effusion: Admitted with acute systolic congestive heart failure with bilateral pleural effusion stat us post thoracentesis 2. Her breathing has improved. She is talking to me appropriately. N ot in any kind of distress. human resources services specialist to initiate the discharge plan. Possible dischar [...] agree with the following nutritional recommendations: DARELL ROSSI MD, FACP 05/31/2018 9:42 AM Dictation software, Adzilla, used which may contain error for similar sounding words even af ter review. Personal communication requested for any clarification. Portions of this chart may have been copied from previous notes for continuity of care purp ose onversion Transaction, Pr ovider Unknown - 05/31/2018 2:54 AM PDT Nurse Progress Note by Nandini Robertson RN at 05/31/18253 Author: Nandini Robertson RN Service: (none) Author Type: Registered Nurse Filed: 05/31/18253 Date of Service: 05/31/18253 Status: Signed Faculty Research Physician: Nandini Robertson RN (Registered Nurse) Chart review completed. onver arturo Transaction, Provider Unknown - 05/30/2018 6:37 PM PDT Nurse Progress Note by Kyra Amador RN at 05/30/181836 Author: Kyra Amador RN Service: (none) Author Type: Registered Nurse Filed: 05/30/18 1843 Date of Service: 05/30/181836 Status: Signed Faculty Research Physician: Kyra Amador RN (Registered Nurse) VSS. Pt c/o abd cramping during dialysis which was treated with PRN tramadol. PRN phenergan x1, PRN zofran x1. Tolerated food well. Ambulated tena few times, tolerated well. Kyra Amador 05/30/18 6:42 PM Chart check complete. alik, Darell U - 05/30/2018 9:09 AM PDTFormatting of this note might be different from the saumya l. Progress Notes by Darell Rossi MD at 05/30/18908 Author: Darell Rossi MD Service: Hospitalist Author Type: Physician Filed: 05/30/18 1243 Date of Service: 05/30/18908 Status: Signed Faculty Research Physician: Darell Rossi MD (Physician) [facility] Service: Hospitalist Progress Note Pt: Dara Louise AGE/SEX: 23 y.o. female ROOM: [facility]- : 1995 PCP: TIEN NICHOLSON ADMIT DATE: 05/26/2018 TODAY'S DATE: 05/30/2018 Hospital Day/Hospital Course: LOS: [address] Figueroa 23-year-old female with past medical history of end-stage renal disease on hemodialysis Mon, hypertension, anemia of chronic disease who went to [facility] with increasing shortness of breath found to have right pleural effusion who was transfer red to [facility] underwent right-sided diagnostic and therapeutic thoracocentesis [...] ness of breath has improved. No chest pain,SWANSON. No cough on recumbency. Had no orthopnea [...] SpO2 05/30/18 0900 120/72 - - 85 18 - 05/30/18 0845 121/67 - - 79 18 - 05/30/18 0830 128/73 - - 81 18 - 05/30/18 0815 124/71 - - 83 18 - 05/30/18 0800 130/73 - - 77 18 - 05/30/18 0745 125/73 - - 75 18 - 05/30/18 0729 118/69 - - 79 18 - 05/30/18 0715 126/75 97.6 F (36.4 C) - 81 18 93 % 05/30/18 0338 117/69 98.6 F (37 C) Oral 80 18 92 % 05/29/18 2342 118/63 98.2 F (36.8 C) Oral [...] Not suicida l LABS: Recent Labs Lab 05/30/18 0418 05/29/18 0457 05/28/18 0923 WBC 4.80 5.44 5.10 HGB 10.7* 11.9 [...] Component Value Units Date/Time Culture, Body Fluid [[id number]] Collected: 05/26/18 1412 Specimen: Body Fluid from Pleural Fluid Updated: 05/30/18 0733 Specimen Description PLEURAL FLUID GRAM STAIN WBC'S SEEN GRAM STAIN NO ORGANISMS SEEN GRAM STAIN STAIN PERFORMED ON CYTOSPIN CULTURE NO GROWTH 4 DAYS Culture, Body Fluid [[id number]] Collected: 05/26/18 1513 Specimen: Other from Ascites Fluid Updated: 05/30/18 0732 Specimen Description ASCITES FLUID GRAM STAIN STAIN PERFORMED ON CYTOSPIN GRAM STAIN WBC'S SEEN GRAM STAIN NO EPITHELIAL CELLS SEEN GRAM STAIN NO ORGANISMS SEEN CULTURE NO GROWTH 4 DAYS Gram stain [[id number]] Collected: 05/29/18 1256 Specimen: Sputum from Thoracic Fluid Updated: 05/29/18 2339 Specimen Description THORACIC FLUID CULTURE 1+ WBC'S SEEN NO ORGANISMS SEEN Lactate dehydrogenase, body fluid [[id number]] Collected: 05/29/18 1256 Specimen: Body Fluid from Pleural, Right Updated: 05/29/18 1619 FLUID LDH 151 U/L Cholesterol, body fluid [[id number]] Collected: 05/29/18 1256 Specimen: Body Fluid from Pleural, Right Updated: 05/29/18 1619 FLUID CHOLESTEROL 56 mg/dL Sputum culture [[id number]] Collected: 05/27/182014 Specimen: Sputum from Sputum Updated: [...] 17. The mitral valve is normal. 18. Daxs-ao-goybe ate eccentric mitral regurgitation is present. 19. [...] anemia of chronic disease who went to [facility] with increasing shortness of breath due to [...] agree with the following nutritional recommendations: DARELL ROSSI MD, FACP 05/30/2018 9:10 AM Dictation software, Adzilla, used which may contain error for similar sounding words even af ter review. Personal communication requested for any clarification. Portions of this chart may have been copied from previous notes for continuity of care purp ose onversion Transhaydee, Pr ovider Unknown - 05/30/2018 4:17 AM PDT Nurse Progress Note by Nandini Robertson RN at 05/30/18416 Author: Nandini Robertson RN Service: (none) Author Type: Registered Nurse Filed: 05/30/18417 Date of Service: 05/30/18416 Status: Signed Faculty Research Physician: Nandini Robertson RN (Registered Nurse) Pt did well overnight. VSS. Chart review completed. Carolina Cantor, Medical Student - 05/29/2018 7:56 PM PDT Progress Notes by Carolina Mahmood DO at 05/29/181955 Author: Carolina Mahmood DO Service: Cardiology Author Type: Physician Filed: 05/29/182014 Date of Service: 05/29/181955 Status: Signed Faculty Research Physician: Carolina Mahmood DO (Physician) [facility] Service: Cardiology Progress Note Hospital Day: LOS: [...] (05/29 1942) I&O Last 3 Shifts: 05/28 699 - 05/29 1858 In: 1240 [P.O.:240] Out: 3000 GENERAL: Well [...] angiogram as an outpatient. Carolina Mahmood DO 05/29/2018 onversio n Transaction, Provider Unknown - 05/29/2018 5:40 PM PDTFormatting of this note might be di fferent from the original. Nurse Progress Note by Flaco Can RN at 05/29/181739 Author: Flaco Can RN Service: (none) Author Type: Registered Nurse Filed: 05/29/181742 Date of Service: 05/29/181739 Status: Signed Faculty Research Physician: Flaco Can RN (Registered Nurse) Pt VSS. Pt tolerated thoracentesis, initial bandage leaked through, pressure bandage applie d. Pt medicated for nausea x1 and pain x1. Pt states her breathing is starting to feel easie r. End of shift review complete FLACO CAN RN Anthony Monteiro MD - 05/29/2018 1:43 PM PDTFormatting of this note might be different from the or iginal. Progress Notes by Anthony Figueroa MD at 05/29/18 134 Author: Anthony Figueroa MD Service: Hospitalist Author Type: Physician Filed: 05/29/187 Date of Service: 05/29/181342 Status: Signed Faculty Research Physician: Anthony Figueroa MD (Physician) Hospitalist Progress Note Dara Louise 23 y.o. [id number] female [facility] Day: LOS: 3 days Patient Summary: 23-year-old female with past medical history of end-stage renal dis ease on hemodialysis Monday, hypertension, anemia of chronic disease who we nt to [facility] with increasing shortness of breath found to have right pleural e ffusion who was transferred to [facility] underwent right-sided diagnostic and therapeu tic thoracocentesis with removal of 1 L of fluid likely transudative, Gram stain and culture s negative so far and also had high volume paracentesis 4 L in the emergency department. Pa tient was started on Rocephin and azithromycin for [...] C) (05/29 131) BP: (111-137)/(59-85) 133/84 (05/29 1314) Heart Rate: [66-88] 75 (05/29 1238) Resp: [17-20] 20 (03/26 1314) SpO2: [91 %-100 %] 100 % (05/29 [...] Value Units Date/Time Lactate dehydrogenase, body fluid [[id number]] Collected: 05/29/18 125 Specimen: Body Fluid from Pleural, Right Updated: 05/29/18 131 Cholesterol, body fluid [[id number]] Collected: 05/29/18 125 Specimen: Body Fluid from Pleural, Right Updated: 05/29/18 1315 Gram stain [[id number]] Collected: 05/29/18 125 Specimen: Sputum from OTHR-w source desc (F6) Updated: 05/29/18 1309 Sputum culture [[id number]] Collected: 05/27/182014 Specimen: Sputum from Sputum Updated: 05/29/18 0947 Specimen Description SPUTUM GRAM STAIN LESS THAN 10 WBCS/LPF GRAM STAIN LESS THAN 10 SEC/LPF GRAM STAIN NO ORGANISMS SEEN CULTURE 1+ NORMAL UPPER RESPIRATORY ALESSANDRO HIV 1/2 Ab reflex [[id number]] Collected: 05/28/18 1236 Specimen: Blood Updated: 05/29/1842 HIV1/HIV2 NON REACTIVE Protime-INR [[id number]] Collected: 05/29/18851 Specimen: Blood Updated: 05/29/18939 INR 1.5 APTT [[id number]] Collected: 05/29/18851 Specimen: Blood Updated: 05/29/18939 APTT 29 seconds Culture, Body Fluid [[id number]] Collected: 05/26/18 1513 Specimen: Other from Ascites Fluid Updated: 05/29/18919 Specimen Description ASCITES FLUID GRAM STAIN STAIN PERFORMED ON CYTOSPIN GRAM STAIN WBC'S SEEN GRAM STAIN NO EPITHELIAL CELLS SEEN GRAM STAIN NO ORGANISMS SEEN CULTURE NO GROWTH 3 DAYS Culture, Body Fluid [[id number]] Collected: 05/26/18 1412 Specimen: Body Fluid from Pleural Fluid Updated: 05/29/18917 Specimen Description PLEURAL FLUID CULTURE NO GROWTH 3 DAYS Comprehensive metabolic panel [[id number]] (Abnormal) Collected: 05/29/18456 Specimen: Blood Updated: 05/29/18615 SODIUM 139 mmol/L POTASSIUM 4.2 mmol/L CHLORIDE [...] mL/min/1.73m2 CBC W/Auto Diff (Reflex to Manual) [[id number]] (Abnormal) Collected: 05/29/18456 Specimen: Blood Updated: 05/29/18612 WBC 5.44 K/uL RBC 3.30 (L) M/uL [...] 0.05 K/uL MORPHOLOGY 2+ hCG, serum, qualitative [[id number]] Collected: 05/28/18922 Specimen: Blood Updated: 05/28/18 1950 TEST,SERUM NEGATIVE C-reactive protein [[id number]] (Abnormal) Collected: 05/28/18922 Specimen: Blood Updated: 05/28/18 1941 CRP 5.1 (H) mg/dL Sedimentation rate, automated [[id number]] Collected: 05/28/18922 Specimen: Blood Updated: 05/28/18 1734 ESR 2 mm/Hr Hepatitis panel,acute [[id number]] Collected: 05/28/18 1236 Specimen: Blood Updated: 05/28/18 1650 HAV AB,IGM NON REACTIVE HEP B SURFACE AG NON REACTIVE ANTI HEP B CORE,IGM NON REACTIVE HEPATITIS C NON REACTIVE HEPATITIS INTERP No serologic evidence of HAV, HBV, or HCV infection. Troponin I [[id number]] Collected: 05/28/18922 Specimen: Blood Updated: 05/28/18 1437 TROPONIN I 0.034 ng/mL Troponin I [[id number]] Collected: 05/28/18 1359 Specimen: Blood Updated: 05/28/18 1437 TROPONIN I 0.037 ng/mL Renal function panel [[id number]] (Abnormal) Collected: 05/28/18 1209 Specimen: Blood from Blood Updated: 05/28/18 1302 SODIUM 141 mmol/L POTASSIUM 4.3 mmol/L CHLORIDE 101 mmol/L CO2 29 mmol/L ANION GAP AGAP 15 mmol/L GLUCOSE 78 mg/dL BUN 43 (H) mg/dL CREATININE 7.97 (H) mg/dL CALCIUM 9.1 mg/dL Albumin 3.6 g/dL PHOSPHORUS 6.3 (H) mg/dL EGFR 6 (L) mL/min/1.73m2 CBC W/Auto Diff (Reflex to Manual) [[id number]] (Abnormal) Collected: 05/28/18922 Specimen: Blood Updated: 05/28/18 [...] 0.05 K/uL MORPHOLOGY 1+ Comprehensive metabolic panel [[id number]] (Abnormal) Collected: 05/28/18922 Specimen: Blood Updated: 05/28/18 1210 SODIUM 137 mmol/L POTASSIUM 4.2 mmol/L CHLORIDE [...] (H) U/L EGFR 6 (L) mL/min/1.73m2 TSH [[id number]] Collected: 05/28/18922 Specimen: Blood Updated: 05/28/18 1210 TSH 1.270 uIU/mL Pathologist consult [[id number]] Collected: 05/26/18 1412 Updated: 05/28/18 1113 Pathologist Consult -- Hepatitis panel, chronic [[id number]] (Abnormal) Collected: 05/27/18 1758 Updated: 05/27/182030 Hep A Total Ab REACTIVE (A) HEP B SURFACE AG NON REACTIVE HEP B CORE AB,TOTAL NON REACTIVE HEP B SURFACE ANTIBODY 3.27 (H) IV HEPATITIS C NON REACTIVE HEPATITIS INTERP Current or past HAV infection. Past HBV infection or vaccination. No ser ologic evidence of HCV infection. CBC w/auto diff (reflex to manual) [[id number]] (Abnormal) Collected: 05/27/18424 Specimen: Blood Updated: 05/27/18 0711 WBC 6.62 K/uL RBC 3.48 (L) M/uL [...] K/uL MORPHOLOGY 2+ Platelet Estimate DECREASED Phosphorus [[id number]] (Abnormal) Collected: 05/27/18424 Specimen: Blood Updated: 05/27/18628 PHOSPHORUS 8.0 (H) mg/dL Basic Metabolic Panel [[id number]] (Abnormal) Collected: 05/27/18424 Specimen: Blood Updated: 05/27/18628 SODIUM 135 mmol/L POTASSIUM 5.9 (H) mmol/L CHLORIDE 96 (L) mmol/L CO2 25 mmol/L ANION GAP AGAP 20 mmol/L GLUCOSE 74 mg/dL BUN 51 (H) mg/dL CREATININE 9.2 (H) mg/dL BUN/CREAT 6 CALCIUM 9.4 mg/dL EGFR 5 (L) mL/min/1.73m2 Magnesium [[id number]] (Abnormal) Collected: 05/27/18424 Specimen: Blood Updated: 05/27/1829 MAGNESIUM 2.7 (H) mg/dL Brain natriuretic peptide [[id number]] (Abnormal) Collected: 05/27/18424 Specimen: Blood Updated: 05/27/18 0546 BRAIN NATRIURETIC PEPTIDE 1,153.92 (H) pg/mL Respiratory Filmarray [[id number]] (Abnormal) Collected: 05/26/181805 Specimen: Nasopharynx/Oropharynx Updated: 05/26/182141 [...] performed by Molecular Methodology MRSA by PCR [[id number]] Collected: 05/26/18 1806 Specimen: Nasopharyngeal from Nares(Nose) Updated: 05/26/182025 SOURCE NARES(NOSE) MRSA PCR NEGATIVE Procalcitonin [[id number]] (Abnormal) Collected: 05/26/18 1727 Updated: 05/26/18 1839 PROCALCITONIN 0.76 (H) ng/mL Albumin, Body Fluid [[id number]] Collected: 05/26/18 141 Specimen: Body Fluid from Lung, Right Lower Lobe Updated: 05/26/18 172 FLUID ALBUMIN 2.3 g/dL Total Protein, Body Fluid [[id number]] Collected: 05/26/181411 Specimen: Body Fluid from Lung, Right Lower Lobe Updated: 05/26/181728 FLUID TOTAL PROTEIN 4.2 g/dL FLUID TP SOURCE PLEURAL FLUID Cell count, Body Fluid [[id number]] Collected: 05/26/181411 Specimen: Body Fluid from Lung, Right Lower Lobe Updated: 05/26/18 1708 FLUID TYPE PLEURAL FLUID COLOR SAMMIE APPEARANCE CLOUDY RBC'S 3,000 /mm3 TOTAL NUCLEATED CELLS 253 /mm3 NEUTROPHILS 22 % LYMPHOCYTES 8 % MONOCYTES/MACROPHAGES 65 % Mesothelial Cells 5 % CELLS COUNTED 100 pH, Body Fluid [[id number]] Collected: 05/26/181411 Specimen: Body Fluid from Lung, [...] radiologist report and is used for image [facility] only Us Abdomen Limited Result Date: 05/28/2018 [...] DARA LOUISE Date of : 1995 Maryjane machado: Robel Yusuf MD ____ INDICATIONS SOB CONCLUSIONS [...] 16. There is no evidence of aortic jaciel nosis. 17. The mitral valve is normal. 18. Jadf-yf-ybxxycdj eccentric mitral regurgitation i s present. 19. [...] mitral valve is normal. Mitral Kait ve: Gkoc-rl-yxviuvgl eccentric mitral regurgitation is present. Tricuspid Valve: [...] maxP.08 mmHg TR Vmax: 2.7 4 m/s Building Tech: MOO Authenticated by: Robel Yusuf MD Report [...] 17. The mitral valve is normal. 18. Xdso-ry-ofmsi ate eccentric mitral regurgitation is present. 19. [...] CMP daily DVT prophylaxis on heparin ANTHONY FIGUEROA MD 05/29/2018 koum, Marnie Mckeon MD - 0 05/29/2018 7:26 AM PDT Progress Notes by Marnie Anguiano MD at 05/29/18725 Author: Marnie Anguiano MD Service: Nephrology Author Type: Physician Filed: 05/31/18 8547 Date of Service: 05/29/18725 Status: Addendum Faculty Research Physician: Marnie Anguiano MD (Physician) Related Notes: Original Note by KRISHNA Waters (Nurse Practitioner) filed at 05/05 08/22 8086 Hospital Problem List: Active Problems: ESRD on [...] put on "an antibiotic" for pneumonia at [facility] ED. 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 Marnie Anguiano MD onversion Transaction , Provider Unknown - 05/29/2018 5:54 AM PDT Nurse Progress Note by Vernell Weston RN at 05/29/18553 Author: Vernell Weston RN Service: (none) Author Type: Registered Nurse Filed: 05/29/18554 Date of Service: 05/29/18553 Status: Signed Faculty Research Physician: Vernell Weston RN (Registered Nurse) End of shift summary. Patient has had uneventful night. Resting well. No complaints at this time. Chart audit completed Will continue to monitor onver arturo Transaction, Provider Unknown - 05/28/2018 7:40 PM PDT Nurse Progress Note by Saundra Hartley RN at 05/28/181939 Author: Saundra Hartley RN Service: (none) Author Type: Registered Nurse Filed: 05/28/181940 Date of Service: 05/28/181939 Status: Signed Faculty Research Physician: Saundra Hartley RN (Registered Nurse) No acute changes during hourly rounding. Pt made it through HD with a little pain, nausea, PRN meds given, see MAR, with relief. Pt also c/o itching at end of HD PRN benadryl given, i tching resolved. Pt to have thoracentesis tomorrow. SBP 120's, HR 60-80's, and afebrile. End of shift audit complete. Saundra Hartley RN onver arturo Transaction, Provider Unknown - 05/28/2018 5:21 PM PDT Nurse Progress Note by Cayden Caceres RN at 05/28/181720 Author: Cyaden Caceres RN Service: Nephrology Author Type: Registered Nurse Filed: 05/28/181721 Date of Service: 05/28/181720 Status: Signed Faculty Research Physician: Cayden Caceres RN (Registered Nurse) UF 2 L with HD today. Anthony Monteiro MD - 05/28/2018 12:26 PM PDTFormatting of this note might be different from the or iginal. Progress Notes by Anthony Figueroa MD at 05/28/18 1226 Author: Anthony Figueroa MD Service: Hospitalist Author Type: Physician Filed: 05/28/18 1233 Date of Service: 05/28/186 Status: Signed Faculty Research Physician: Anthony Figueroa MD (Physician) Hospitalist Progress Note Dara Louise 23 y.o. [id number] female [facility] Day: LOS: 2 days Patient Summary: 23-year-old female with past medical history of end-stage renal dis ease on hemodialysis Monday, hypertension, anemia of chronic disease who we nt to [facility] with increasing shortness of breath found to have right pleural e ffusion who was transferred to [facility] underwent right-sided diagnostic and therapeu tic thoracocentesis with removal of 1 L of fluid likely transudative, Gram stain and culture s negative so far and also had high volume paracentesis 4 L in the emergency department. Lux hamilton was started on Rocephin and azithromycin [...] Component Value Units Date/Time Culture, Body Fluid [[id number]] Collected: 05/26/18 151 Specimen: Other from Ascites Fluid Updated: 05/28/18 122 Specimen Description ASCITES FLUID GRAM STAIN STAIN PERFORMED ON CYTOSPIN GRAM STAIN WBC'S SEEN GRAM STAIN NO EPITHELIAL CELLS SEEN GRAM STAIN NO ORGANISMS SEEN CULTURE NO GROWTH 2 DAYS Culture, Body Fluid [[id number]] Collected: 05/26/181411 Specimen: Body Fluid from Pleural Fluid Updated: 05/28/18 122 Specimen Description PLEURAL FLUID CULTURE NO GROWTH 2 DAYS Comprehensive metabolic panel [[id number]] (Abnormal) Collected: 05/28/18922 Specimen: Blood Updated: 05/28/18 121 SODIUM 137 mmol/L POTASSIUM 4.2 mmol/L CHLORIDE [...] (H) U/L EGFR 6 (L) mL/min/1.73m2 TSH [[id number]] Collected: 05/28/18922 Specimen: Blood Updated: 05/28/18 1210 TSH 1.270 uIU/mL Pathologist consult [[id number]] Collected: 05/26/18 1412 Updated: 05/28/18 1113 Pathologist Consult -- Troponin I [[id number]] Collected: 05/28/18922 Specimen: Blood Updated: 05/28/18 1055 CBC W/Auto Diff (Reflex to Manual) [[id number]] Collected: 05/28/18922 Specimen: Blood Updated: 05/28/18938 Sputum culture [[id number]] Collected: 05/27/182014 Specimen: Sputum from Sputum Updated: 05/28/18902 Specimen Description SPUTUM GRAM STAIN LESS THAN 10 WBCS/LPF GRAM STAIN LESS THAN 10 SEC/LPF GRAM STAIN NO ORGANISMS SEEN CULTURE CULTURE IN PROGRESS Hepatitis panel, chronic [[id number]] (Abnormal) Collected: 05/27/181757 Updated: 05/27/182030 Hep A Total Ab REACTIVE (A) HEP B SURFACE AG NON REACTIVE HEP B CORE AB,TOTAL NON REACTIVE HEP B SURFACE ANTIBODY 3.27 (H) IV HEPATITIS C NON REACTIVE HEPATITIS INTERP Current or past HAV infection. Past HBV infection or vaccination. No ser ologic evidence of HCV infection. CBC w/auto diff (reflex to manual) [[id number]] (Abnormal) Collected: 05/27/18424 Specimen: Blood Updated: 05/27/18710 [...] K/uL MORPHOLOGY 2+ Platelet Estimate DECREASED Phosphorus [[id number]] (Abnormal) Collected: 05/27/18424 Specimen: Blood Updated: 05/27/18628 PHOSPHORUS 8.0 (H) mg/dL Basic Metabolic Panel [[id number]] (Abnormal) Collected: 05/27/18424 Specimen: Blood Updated: 05/27/18628 SODIUM 135 mmol/L POTASSIUM 5.9 (H) mmol/L CHLORIDE 96 (L) mmol/L CO2 25 mmol/L ANION GAP AGAP 20 mmol/L GLUCOSE 74 mg/dL BUN 51 (H) mg/dL CREATININE 9.2 (H) mg/dL BUN/CREAT 6 CALCIUM 9.4 mg/dL EGFR 5 (L) mL/min/1.73m2 Magnesium [[id number]] (Abnormal) Collected: 05/27/18424 Specimen: Blood Updated: 05/27/18 0629 MAGNESIUM 2.7 (H) mg/dL Brain natriuretic peptide [[id number]] (Abnormal) Collected: 05/27/18424 Specimen: Blood Updated: 05/27/18 0546 BRAIN NATRIURETIC PEPTIDE 1,153.92 (H) pg/mL Respiratory Filmarray [[id number]] (Abnormal) Collected: 05/26/181805 Specimen: Nasopharynx/Oropharynx Updated: 05/26/182141 [...] performed by Molecular Methodology MRSA by PCR [[id number]] Collected: 05/26/181805 Specimen: Nasopharyngeal from Nares(Nose) Updated: 05/26/182025 SOURCE NARES(NOSE) MRSA PCR NEGATIVE Procalcitonin [[id number]] (Abnormal) Collected: 05/26/18 172 Updated: 05/26/18 1839 PROCALCITONIN 0.76 (H) ng/mL Albumin, Body Fluid [[id number]] Collected: 05/26/18 141 Specimen: Body Fluid from Lung, Right Lower Lobe Updated: 05/26/181728 FLUID ALBUMIN 2.3 g/dL Total Protein, Body Fluid [[id number]] Collected: 05/26/18 141 Specimen: Body Fluid from Lung, Right Lower Lobe Updated: 05/26/181728 FLUID TOTAL PROTEIN 4.2 g/dL FLUID TP SOURCE PLEURAL FLUID Cell count, Body Fluid [[id number]] Collected: 05/26/181411 Specimen: Body Fluid from Lung, Right Lower Lobe Updated: 05/26/18 1708 FLUID TYPE PLEURAL FLUID COLOR SAMMIE APPEARANCE CLOUDY RBC'S 3,000 /mm3 TOTAL NUCLEATED CELLS 253 /mm3 NEUTROPHILS 22 % LYMPHOCYTES 8 % MONOCYTES/MACROPHAGES 65 % Mesothelial Cells 5 % CELLS COUNTED 100 pH, Body Fluid [[id number]] Collected: 05/26/18 1412 Specimen: Body Fluid from Lung, Right Lower Lobe Updated: 05/26/18 1508 FLUID PH 7.45 Procalcitonin [[id number]] (Abnormal) Collected: 05/26/18 1214 Updated: 05/26/18 1330 PROCALCITONIN 0.56 (H) ng/mL Cardiac Panel [[id number]] (Abnormal) Collected: 05/26/18 1214 Updated: 05/26/18 1312 [...] ng/mL CK-MB Index 2.7 Brain natriuretic peptide [[id number]] (Abnormal) Collected: 05/26/18 1214 Updated: 05/26/18 1254 [...] radiologist report and is used for image [facility] only Echo Cardiac Adult Complete Result Date: 05/27/2018 Patient Name: DARA LOUISE Date of : 1995 Maryjane P hysician: Robel Yusuf MD ____ INDICATIONS [...] 16. There is no evidence of aortic jaciel nosis. 17. The mitral valve is normal. 18. Acih-la-dwxynwsq eccentric mitral regurgitation i s present. 19. [...] mitral valve is normal. Mitral Kait ve: Istp-mt-sfqwtmch eccentric mitral regurgitation is present. Tricuspid Valve: [...] maxP.08 mmHg TR Vmax: 2.7 4 m/s Building Tech: MOO Authenticated by: Robel Yusuf MD Report [...] 17. The mitral valve is normal. 18. [id number] ate eccentric mitral regurgitation is present. 19. [...] surgery consult DVT prophylaxis on heparin ANTHONY FIGUEROA MD 05/28/2018 onversion Transactio n, Provider Unknown - 05/28/2018 7:04 AM PDT Nurse Progress Note by Timothy Butler RN at 05/28/18703 Author: Timothy Butler RN Service: (none) Author Type: Registered Nurse Filed: 05/28/18707 Date of Service: 05/28/18703 Status: Signed Faculty Research Physician: Timothy Butler RN (Registered Nurse) Pt A&Ox4 and resting comfortably in room. Dialysis ended early upon pt request and due to pt abd pain. Pain relieved with pain medication per MD order. Pt c/o nausea which was reli eved by promethazine x 2. Pt continues oxygen via nasal cannula. End of shift review complete. Timothy Butler RN onver arturo Transaction, Provider Unknown - 05/27/2018 7:55 PM PDT Nurse Progress Note by Vernell Weston RN at 05/27/181954 Author: Vernell Weston RN Service: (none) Author Type: Registered Nurse Filed: 05/27/181957 Date of Service: 05/27/181954 Status: Signed Faculty Research Physician: Vernell Weston RN (Registered Nurse) Called into room at 1930. Patient complaining of severe nausea and abdominal pain. Yelling at HD tech to stop HD. Talked with patient and calmed her down. Ambulated to bathroom. Discu ssed relaxation techniques and respect for caregivers. Patient doing better but is refusing to finish HD today. Continues to be nauseated. Zofran not due to give yet. Page sent to Dr Linda camilo regarding nausea issue. Dr Anguiano aware of HD being stopped. No new orders from him at this time. Patient currently resting in bed with mother at bedside. Will continue to monitor onver arturo Transaction, Provider Unknown - 05/27/2018 7:23 PM PDT Nurse Progress Note by Saundra Hartley RN at 05/27/181922 Author: Saundra Hartley RN Service: (none) Author Type: Registered Nurse Filed: 05/27/181924 Date of Service: 05/27/181922 Status: Signed Faculty Research Physician: Saudnra Hartley RN (Registered Nurse) Pt has complained of some nausea during shift, PRN zofran given with relief. Pt also given norco x1 for pain. Pt c/o increased SOB, aware. Pt currently getting dialysis will also g et again tomorrow. SBP 110-130, HR 70-80's, and afebrile. Pt remains on oxygen via nasal can nula. End of shift audit complete. Saundra Hartley RN onver arturo Transaction, Provider Unknown - 05/27/2018 3:30 PM PDT Case Management by DORON Ashby at 05/27/181529 Author: DORON Ashby Service: (none) Author Type: High School Combination Teacher Filed: 05/27/181533 Date of Service: 05/27/181529 Status: Signed Faculty Research Physician: DORON Ashby (High School Combination Teacher) 05/27/181529 Discharge Planning Evaluation Admitting Diagnosis SOB increasing Over past few days Readmission No Living Arrangements Alone Support Systems Family members;Friends/neighbors;Parent Type of Residence Private residence House type Apartment Steps to enter 1 Bathrooms on 1st Floor 2-Full Independent with ADL's Yes Independent with Mobility Yes Home Care Services No Caregiver after Discharge No Mental Status Oriented Anticipated Discharge Plan Post Acute Care Needs None at this time Plan communicated to patient/family Yes Resources Financial concerns No Transportation issues No Patient/Family concerns No Met with Dara Louise ([phone]) and discussed discharge planning. Pt is a 23 y.o., female who resides alone in [place], [place]. Pt states that she has supportive family and frie nds. Pt's mother lives 50 miles away; pt's sister lives 15 minutes away. Pt is independent and does not have a caregiver. Patient's PCP is: TIEN NICHOLSON Patient's insurance: Medicare and Medicaid Coverage concerns: None Medication coverage/concerns: None Community resources utilized / needed: Pt does outpatient dialysis at [facility] in [facility] on Monday, Monday and Monday Assistance in transportation: None Identification of any specific education / training: None at this time Barriers to Discharge / Alternative housing needed: None at this time Anticipated DCP: Pt plans to return home and states there are no CM needs DORON Ashby Anthony Monteiro MD - 05/27/2018 1:25 PM PDTFormatting of this note might be different from the or iginal. Progress Notes by Anthony Figueroa MD at 05/27/18 7512 Author: Anthony Figueroa MD Service: Hospitalist Author Type: Physician Filed: 05/27/18 7745 Date of Service: 05/27/181324 Status: Signed Faculty Research Physician: Anthony Figueroa MD (Physician) Hospitalist Progress Note Dara Louise 23 y.o. [phone] [id number] female [facility] Day: LOS: 1 day Patient Summary: 23-year-old female with past medical history of end-stage renal dis ease on hemodialysis Monday, hypertension, anemia of chronic disease who we nt to [facility] with increasing shortness of breath found to have right pleural e ffusion who was transferred to [facility] underwent right-sided diagnostic and therapeu tic thoracocentesis with removal of 1 L of fluid likely transudative, Gram stain and culture s negative so far and also had high volume paracentesis 4 L in the emergency department. Lux hamilton was started on Rocephin and azithromycin [...] C) (05/27 1114) BP: (119-176)/(67-111) 131/87 (05/27 1115) Heart Rate: [75-109] 75 (05/27 1115) Resp: [16-18] 18 (05/27 111) SpO2: [92 %-97 %] 93 % (05/27 111) Height: [170.2 cm (5' 7")] 170.2 cm (5' 7") (05/26 172) Weight: [96.9 kg (213 lb 10 oz)] 96.9 kg (213 lb 10 oz) (05/27 1911) I&O Detailed Table: Intake/Output Summary (Last 24 [...] Date/Time CBC w/auto diff (reflex to manual) [[id number]] (Abnormal) Collected: 05/27/18424 Specimen: Blood Updated: 05/27/18710 [...] K/uL MORPHOLOGY 2+ Platelet Estimate DECREASED Phosphorus [[id number]] (Abnormal) Collected: 05/27/18424 Specimen: Blood Updated: 05/27/18 06 PHOSPHORUS 8.0 (H) mg/dL Basic Metabolic Panel [[id number]] (Abnormal) Collected: 05/27/18424 Specimen: Blood Updated: 05/27/18628 SODIUM 135 mmol/L POTASSIUM 5.9 (H) mmol/L CHLORIDE 96 (L) mmol/L CO2 25 mmol/L ANION GAP AGAP 20 mmol/L GLUCOSE 74 mg/dL BUN 51 (H) mg/dL CREATININE 9.2 (H) mg/dL BUN/CREAT 6 CALCIUM 9.4 mg/dL EGFR 5 (L) mL/min/1.73m2 Magnesium [[id number]] (Abnormal) Collected: 05/27/18424 Specimen: Blood Updated: 05/27/1829 MAGNESIUM 2.7 (H) mg/dL Brain natriuretic peptide [[id number]] (Abnormal) Collected: 05/27/18424 Specimen: Blood Updated: 05/27/18 0546 BRAIN NATRIURETIC PEPTIDE 1,153.92 (H) pg/mL Respiratory Filmarray [[id number]] (Abnormal) Collected: 05/26/181805 Specimen: Nasopharynx/Oropharynx Updated: 05/26/182141 [...] performed by Molecular Methodology MRSA by PCR [[id number]] Collected: 05/26/181805 Specimen: Nasopharyngeal from Nares(Nose) Updated: 05/26/182025 SOURCE NARES(NOSE) MRSA PCR NEGATIVE Procalcitonin [[id number]] (Abnormal) Collected: 05/26/18 1727 Updated: 05/26/18 1839 PROCALCITONIN 0.76 (H) ng/mL Culture, Body Fluid [[id number]] Collected: 05/26/18 141 Specimen: Body Fluid from Pleural Fluid Updated: 05/26/18 1811 Pathologist consult [[id number]] Collected: 05/26/18 141 Updated: 05/26/18 1742 Albumin, Body Fluid [[id number]] Collected: 05/26/18 141 Specimen: Body Fluid from Lung, Right Lower Lobe Updated: 05/26/18 172 FLUID ALBUMIN 2.3 g/dL Total Protein, Body Fluid [[id number]] Collected: 05/26/18 141 Specimen: Body Fluid from Lung, Right Lower Lobe Updated: 05/26/18 172 FLUID TOTAL PROTEIN 4.2 g/dL FLUID TP SOURCE PLEURAL FLUID Cell count, Body Fluid [[id number]] Collected: 05/26/18 141 Specimen: Body Fluid from Lung, Right Lower Lobe Updated: 05/26/18 1708 FLUID TYPE PLEURAL FLUID COLOR SAMMIE APPEARANCE CLOUDY RBC'S 3,000 /mm3 TOTAL NUCLEATED CELLS 253 /mm3 NEUTROPHILS 22 % LYMPHOCYTES 8 % MONOCYTES/MACROPHAGES 65 % Mesothelial Cells 5 % CELLS COUNTED 100 Culture, Body Fluid [[id number]] Collected: 05/26/18 1513 Specimen: Other from Ascites Fluid Updated: 05/26/18 1631 Specimen Description ASCITES FLUID GRAM STAIN STAIN PERFORMED ON CYTOSPIN GRAM STAIN WBC'S SEEN GRAM STAIN NO EPITHELIAL CELLS SEEN GRAM STAIN NO ORGANISMS SEEN CULTURE PENDING pH, Body Fluid [[id number]] Collected: 05/26/18 1412 Specimen: Body Fluid from Lung, Right Lower Lobe Updated: 05/26/18 1508 FLUID PH 7.45 Procalcitonin [[id number]] (Abnormal) Collected: 05/26/18 1214 Updated: 05/26/18 1330 PROCALCITONIN 0.56 (H) ng/mL Cardiac Panel [[id number]] (Abnormal) Collected: 05/26/18 1214 Updated: 05/26/18 1312 [...] ng/mL CK-MB Index 2.7 Brain natriuretic peptide [[id number]] (Abnormal) Collected: 05/26/18 1214 Updated: 05/26/18 1254 [...] radiologist report and is used for image [facility] only PROBLEM LIST Active Problems: ESRD on [...] 6 hours DVT prophylaxis on heparin ANTHONY FIGUEROA MD 05/27/2018 onversion Transactio n, Provider Unknown - 05/27/2018 5:44 AM PDT Nurse Progress Note by Vernell Weston RN at 05/27/18543 Author: Vernell Weston RN Service: (none) Author Type: Registered Nurse Filed: 05/27/18546 Date of Service: 05/27/18543 Status: Signed Faculty Research Physician: Vernell Weston RN (Registered Nurse) End of shift summary. Patient continues to complain of pain and nausea on and off. Administ ering pain medication and zofran per orders. Patient became itchy after IV rocephin was give n. Notified Dr Rossi. IV benadryl given times one per orders. Patient seems to be anxious ba seline. Currently resting in bed. All needs met at this time Chart audit completed Will continue to monitor onver arturo Transaction, Provider Unknown - 05/26/2018 7:48 PM PDT Nurse Progress Note by Saundra Hartley RN at 05/26/181947 Author: Saundra Hartley RN Service: (none) Author Type: Registered Nurse Filed: 05/26/181950 Date of Service: 05/26/181947 Status: Signed Faculty Research Physician: Saundra Hartley RN (Registered Nurse) Pt complained of some back pain since being on the floor. Pt given PRN dilaudid with relief . Pt also c/o of nausea, PRN zofran given. No acute changes since pt admit. Pt also noted ne w onset, since November of redness/rash on BLE. Pt on 3L nasal cannula, tolerating well. Pt gets SOB with exertion. SBP 140's, HR 90's, and afebrile. End of shift audit complete. George Hartley RN onver arturo Transaction, Provider Unknown - 05/26/2018 6:05 PM PDT Progress Notes by Jae Gutierres RPH at 05/26/181804 Author: Jae Gutierres RPH Service: Pharmacy Author Type: Pharmacist Filed: 05/26/181804 Date of Service: 05/26/181804 Status: Signed Faculty Research Physician: Jae Gutierres RPH (Pharmacist) Renal Dosing Monitoring: S: Renal dose monitoring per protocol. O: HD patient A: No adjustments needed at this time. P: Pharmacy will continue monitoring patient for appropriate dosing based on renal functio n. Pharmacist: Jae Gutierres PharmD docume nted in this encounter H&P Notes Mayco Riziv MD - 05/26/2018 1:58 PM PDTFormatting of this note might be different from th e original. H&P by Mayco Rizvi MD at 05/26/18 5792 Author: Mayco Rizvi MD Service: (none) Author Type: Physician Filed: 05/26/18 7603 Date of Service: 05/26/18 2495 Status: Addendum Faculty Research Physician: Mayco Rizvi MD (Physician) Related Notes: Original Note by Mayco Rizvi MD (Physician) filed at 05/26/18 3310 [facility] Service: Hospitalist Admission History & Physical Pt: Dara Louise AGE/SEX: 23 y.o. female ROOM: 01/14 PCP: TIEN NICHOLSON : 1995 TODAY'S DATE: 05/26/2018 Date of Admission: 05/26/2018 Chief Complaint: Reason for Admission: SOB increasing Over past few days was seen recent At [facility] ED Xray chest Xray rt pleural effsuion on 25 may no fever History of Present Illness: History Obtained From: patient The patient is a 23 y.o. female with significant past medical history of Past Medical History Diagnosis Date Anemia Clotted dialysis access (HCC) 2014 ESRD (end stage renal disease) (HCC) HSP (Henoch-Schonlein purpura) nephritis Hypertension who presents with SOB increasing Over past few days was seen recent At [facility] ED Xray chest Xray rt pleural effusion on 25 may no fever or CP is on HD mon and Monday ( got dialysii on Monday) HD on past 6 years per h/o ESRD due to long-standing HSP. 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 89 BUn 41 cPK 291 [id number] Lactic was normal procal 0.56 Xray chest At [facility] worsening consolidation effusion on the right, questionable mild superimposed edema" pul was consulted from ER vital in ER afebril HR 104 sinus RR18 BP 166/104 Review of Systems: A 10 point review of systems was negative except as mentioned in the HPI. PSHx: Past Surgical History Procedure Laterality Date ABDOMINAL SURGERY AV FISTULA PLACEMENT AV FISTULA PLACEMENT Left 04/08/2014 Procedure: AV FISTULA; Surgeon: Rik Simon MD; Location: [facility] MAIN OR; Service: Vascula r; Laterality: Left; cephalic AV FISTULA REPAIR Left 03/07/2014 Procedure: AV FISTULA - GRAFT REPAIR/REVISION; Surgeon: Rik Simon MD; Location: [facility] IN OR; Service: Vascular; Laterality: Left; DECLOT GRAFT Left 03/07/2014 Procedure: GRAFT - DECLOT; Surgeon: Rik Simon MD; Location: [facility] MAIN OR; Service: Vas cular; Laterality: Left; DIALYSIS FISTULA CREATION N/A 04/08/2014 Procedure: DIALYSIS CATHETER - INSERTION; Surgeon: Rik Simon MD; Location: [facility] MAIN OR ; Service: Vascular; Laterality: N/A; tunneled catheter LAPAROSCOPIC PERITONEAL DIALYSIS CATHETER INSERTION x2 LAPAROSCOPIC PERITONEAL DIALYSIS CATHETER INSERTION Right 07/2013 current dialysis access MWF dialysis RENAL BIOPSY SUPERFICIALIZATION OF AV FISTULA Left 06/24/2014 Procedure: AV FISTULA - SUPERFICIALIZATION; Surgeon: Rik Simon MD; Location: [facility] MAIN OR; Service: Vascular; Laterality: Left; Prior To admission Meds: Prior to Admission medications Medication Sig Start Date End Date Taking? Authorizing Provider benzonatate (TESSALON) 100 MG capsule Take 100 mg by mouth 3 (three) times daily as needed for Cough. Historical Provider cinacalcet (SENSIPAR) 30 MG tablet Take 60 mg by mouth daily. Historical Provider clopidogrel (PLAVIX) 75 MG tablet Take 75 mg by mouth daily. Indications: Treatment to Prev ent a Blood Clot in a Vascular Stent Historical Provider sevelamer (RENVELA) 800 MG tablet Take 800 mg by mouth 3 (three) times daily with meals. Historical Provider Allergies: Allergies Allergen Reactions Fentanyl Itching Iodinated Diagnostic Agents Itching Pt c/o face itching during fistulagram Morphine Rash Tape [Adhesive Tape] Rash Use silk tape only Family Hx: History reviewed. No pertinent family history. Social Hx: Social History Social History Marital status: Single Spouse name: N/A Number of children: N/A Years of education: N/A Occupational History Not on file. Social History Main Topics Smoking status: Current Every Day Smoker Packs/day: 0.50 Years: 0.50 Smokeless tobacco: Never Used Alcohol use Yes Comment: occassional Drug use: Yes Types: Marijuana Sexual activity: Not on file Other Topics Concern Not on file Social History Narrative No narrative on file History Smoking Status Current Every Day Smoker Packs/day: 0.50 Years: 0.50 Smokeless Tobacco Never Used History Alcohol Use Yes Comment: occassional Physical Exam: BP (!) 166/104 (BP Location: Right upper arm) | Pulse 111 | Temp 97 F (36.1 C) (Oral) | Resp 18 | SpO2 94% No intake/output data recorded. General Appearance: Alert, cooperative, no distress, appears stated age Head: Normocephalic, without obvious abnormality, atraumatic Eyes: PERRL, conjunctiva/corneas clear, EOM's intact. Ears: Normal external ear canals, both ears Nose: Nares normal, septum midline, mucosa normal, no drainage or sinus tenderness Throat: Lips, mucosa, and tongue normal; teeth and gums normal Neck: Supple, symmetrical, trachea midline, thyroid: no enlargement/tenderness/nodules ; no carotid bruit or JVD Back: Symmetric, no curvature, ROM normal, no CVA tenderness Lungs: BS + reduced right side No wheez Chest Wall: No tenderness or deformity Heart: Regular rate and rhythm, S1 and S2 normal, no murmur, rub or gallop Abdomen: Distended Bs + bowel sounds active all four quadrants, no masses, no organomegaly Psychiatric: Alert and oriented x 3. Intact Judgement and insight Rectal: Deferred Extremities: Extremities normal, atraumatic, no cyanosis or edema left arm AVF+ Pulses: 2+ and symmetric all extremities Skin: Skin color, texture, turgor normal, no rashes or lesions Lymph nodes: Cervical nodes normal Neurologic: CNII-XII intact, normal strength, sensation and reflexes throughout Data: CBC: Lab Results Component Value Date WBC 5.73 05/26/2018 RBC 3.32 (L) 05/26/2018 HGB 12.1 05/26/2018 HCT 36.1 05/26/2018 MCV 108.7 (H) 05/26/2018 MCH 36.3 (H) 05/26/2018 MCHC 33.4 05/26/2018 RDW 59.9 (H) 05/26/2018 PLT 151 05/26/2018 MPV 10.1 05/26/2018 DIFFTYPE AUTOMATED 05/26/2018 CMP: Lab Results Component Value Date NA 140 05/26/2018 K 4.6 05/26/2018 CL 99 05/26/2018 CO2 27 05/26/2018 ANIONGAP 19 05/26/2018 GLUF 85 05/26/2018 BUN 41 (H) 05/26/2018 CREATININE 7.89 (H) 05/26/2018 BCR 5 05/26/2018 CA 9.6 05/26/2018 PROT 7.2 05/26/2018 ALB 4.3 05/26/2018 GLOB 2.9 05/26/2018 BILITOT 1.1 05/26/2018 ALP 120 (H) 05/26/2018 AST 82 (H) 05/26/2018 ALT 64 05/26/2018 EGFR 6 (L) 05/26/2018 Magnesium: No results found for: MG Phosphorus: No results found for: PHOS PT/INR: Lab Results Component Value Date INR 1.6 05/26/2018 Troponin: No results found for: TROPONINI Last 3 Troponin: No results found for: TROPONINI TSH: No results found for: TSH, TSHNEO CPK: Lab Results Component Value Date CKTOTAL 291 (H) 05/26/2018 CKMB: Lab Results Component Value Date CKMB 7.8 (H) 05/26/2018 U/A: No results found for: COLORU, CLARITYU, MEROPENEM, LEUKOCYTESUR, NITRITE, UROBILINOGE N, UPRO, PHUR, BLOODU, KETONES, BILIRUBINUR, GLUCOSEU EKG: I personally reviewed the EKG. Findings: IMAGING: X-ray Chest 1 View Result Date: 05/26/2018 This is a non-reportable procedure without a radiologist report and is used for image [facility] only Problem List: Active Problems: SOB with increasing right side pleural effusion in patient with ESRD on HD exiting ESRD on HD with noncompliance per record ongoing nicotine addiction, chronic THC dependence Anemia secondary to CKD- -HTN Assessment and Plan: Active Problems: SOB with increasing right side pleural effusion in patient with ESRD on HD admit she is afebril WBC stable lactic normal pro noted elevated will send respi filmmary As well as thoracetesiis gram stain culture fluid studuies O2 keep sat>90% with worsening consolidation effusion on the right, concern CT chest was also order as well empiric IV zithromax and IV riocephin fornow while work up fluid culture vitral culture as well Abdominal distension concern ascites US bedside pewr ER paracetesiis care plan fluid stud ies f/ up with BNP >1000s trend moniter echo baseline for wall motion order ESRD HD mon and Monday ( got dialysis on Monday) HD on past 6 years left arm AVF, Since 08/13/15. per h/o ESRD due to long-standing HSP. 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 Per record . Hypertension-- losartan, Non compliance per h/o educated 50 mg po qd with betablocker with paarmeter . Anemia secondary to CKD-- In past missed doses of EPO moniter trend 6 Chronic Nicotine and THC dependence-- eduicate cessation nicotine patch offer DVT pro scurds only Patient's old records and labs that were available, were reviewed in detail and summarized as above. explained radiology and lab findings, plan of care and management to patient at bedside, M ore than 50 minutes spent on admitting this patient face to face at bedside, taking history and physical examination, more than 65% of this spent on explaining plan of care to patient and relatives at bedside, chart review,formulating a plan and placing orders coordinating ca re with other providers well as Computerized Differential Specialist. Other recommendations for manageme nt of this patient will be dependent upon the patient's clinical course. Inpatient, patient will require minimum of 2 night stay due to complexity of her medical co nditions, and need to stabilize patient's underlying conditions Code Status: Prior Primary Care Physician: TIEN RIZVI MD 05/26/2018 1:59 PM ER physician did thoracetesiis 4 litre Pleural fluid as well as parcentesis 4 litre was aspiratied incentive spirometer use order f/ up fluid cultures documented in this encou nter Procedure Notes Marnie Anguiano MD - 05/30/2018 10:14 AM PDT Procedures by Marnie Anguiano MD at 05/30/18 1014 Author: Marnie Anguiano MD Service: Nephrology Author Type: Physician Filed: 05/31/18 2824 Date of Service: 05/30/18 1014 Status: Addendum Faculty Research Physician: Marnie Anguiano MD (Physician) Related Notes: Original Note by KRISHNA Waters (Nurse Practitioner) filed at 05/05 09/21 1514 Procedure Orders: 1. Hemodialysis [[id number]] ordered by Marnie Anguiano MD at 05/30/18 0655 Hospital Problem List: Active Problems: ESRD on hemodialysis SOB (shortness of breath) Pleural effusion on right Non-compliance Chronic systolic heart failure (HCC) Hyperphosphatemia Hyperkalemia Pulmonary artery hypertension (HCC) Non-rheumatic tricuspid valve insufficiency Non-rheumatic mitral regurgitation Diastolic dysfunction with chronic heart failure (HCC) At high risk for electrolyte imbalance Acute systolic CHF (congestive heart failure) (HCC) Transaminitis The patient is seen & examined today on HD. she says that she feels 'stomach pains' today. she denies any cp, dyspnea. She was admitted with symptomatic large right pleural effusion. She presented with: Had dyspnea on minimal exertion starting this last Monday. Worsened over the next few days. Was put on "an antibiotic" for pneumonia at [facility] ED. Was throwing up & could [...] colchicine 0.6 mg Oral Daily heparin (porcine) 1,000 Units Intravenous Once in dialysis heparin (porcine) 500 Units Intravenous Once in dialysis heparin (porcine) 5000 unit/0.5mL [...] (bolus), sodi um chloride (bolus), sodium chloride, zolpidem BP 116/69 | Pulse 79 | Temp 97.6 F (36.4 C) | Resp 20 | Ht 1.702 m (5' 7") | Wt 96 .9 kg (213 lb 10 oz) | SpO2 94% | ? No | BMI 33.46 kg/m [...] no asterixis. Access: LUE AVF with good flow Lab Results Component Value Date BUN 34 (H) 05/30/2018 CREATININE 7.8 (H) 05/30/2018 EGFR 6 (L) 05/30/2018 NA 138 05/30/2018 K 3.8 05/30/2018 CL 97 (L) 05/30/2018 CO2 31 05/30/2018 CA 9.5 05/30/2018 PHOS 6.3 (H) 05/28/2018 MG 2.7 (H) 05/27/2018 ALB 2.9 (L) 05/30/2018 HGB 10.7 (L) 05/30/2018 Assessment: Ms. Louise is a 23 y.o. female patient with ESRD, HD. Longstanding history of non-adheren ce to dialysis or diet restrictions Presented with: worsening dyspnea, at rest the day of presentation Admitted with: symptomatic large right pleural effusion Anemia of ESRD hypoalb Mild hypermag hyperphos Complications during HD today: none Recommendations: Next dialysis treatment per the prelim submitted orders, MWF UF as tolerated ESTEFANY as indicated with HD Protein [...] and the changes with the author on 05/30. Marnie Anguiano MD koum, Marnie Mckeon MD - 1:34 PM PDT Procedures by Marnie Anguiano MD at 05/28/18 1334 Author: Marnie Anguiano MD Service: Nephrology Author Type: Physician Filed: 05/28/18 1846 Date of Service: 05/28/18 1334 Status: Addendum Faculty Research Physician: Marnie Anguiano MD (Physician) Related Notes: Original Note by KRISHNA Waters (Nurse Practitioner) filed at 05/05 07/22 1411 Procedure Orders: 1. Hemodialysis [[id number]] ordered by Marnie Anguiano MD at 05/27/18 1635 Hospital Problem List: Active Problems: ESRD on hemodialysis SOB (shortness of breath) Pleural effusion on right Non-compliance Chronic systolic heart failure (HCC) Hyperphosphatemia Hyperkalemia Pulmonary artery hypertension (HCC) Non-rheumatic tricuspid valve insufficiency Non-rheumatic mitral regurgitation Diastolic dysfunction with chronic heart failure (HCC) At high risk for electrolyte imbalance The patient is seen & examined during dialysis. she says that she feels 'ok' today. she de nies any cp, dyspnea. The following portions of the patient's history [...] Continuous Infusions: PRN Meds:.acetaminophen OR acetaminophen, benzonatate, HYDROcodone-acetaminophen, ondan setron OR ondansetron, polyethylene glycol, promethazine, zolpidem BP 110/75 | Pulse 69 | Temp 97.1 F (36.2 C) (Oral) | Resp 18 | Ht 1.702 m (5' 7") | Wt 96.9 kg (213 lb 10 oz) | SpO2 91% | ? No | BMI 33.46 kg/m General appearance: Pleasant, not in acute distress. Lungs: Clear to auscultation bilaterally. There are no wheezes. Heart: Regular rate [...] no asterixis. Access: LUE AVF with good flow Lab Results Component Value Date BUN 43 (H) 05/28/2018 CREATININE 7.97 (H) 05/28/2018 EGFR 6 (L) 05/28/2018 NA 141 05/28/2018 K 4.3 05/28/2018 CL 101 05/28/2018 CO2 29 05/28/2018 CA 9.1 05/28/2018 PHOS 6.3 (H) 05/28/2018 MG 2.7 (H) 05/27/2018 ALB 3.6 05/28/2018 HGB 11.9 05/28/2018 Assessment: Ms. Louise is a 23 y.o. female patient with ESRD, HD. Complications identified during her dialysis treatment: none. Recommendations: Next dialysis treatment per the prelim submitted orders, MWF UF as tolerated ESTEFANY as indicated with HD Protein [...] the changes with the author on 05/28. Marnie Anguiano MD documented in this enc ounter Consult Notes Kyra Rice PA - 05/28/2018 11:18 AM PDTFormatting of this note might be differ ent from the original. Consults by LUX Goodwin at 05/28/18 1118 Author: LUX Goodwin Service: Cardiology Author Type: Physician Artificial Stone Applicator Filed: 05/28/18 3081 Date of Service: 05/28/18 1118 Status: Attested Faculty Research Physician: LUX Goodwin (Physician Artificial Stone Applicator) Cosigner: Carolina Mahmood DO at 0 05/28/181829 Consult Orders: 1. Inpatient consult to Cardiology [[id number]] ordered by Anthony Figueroa MD at 05/28/18 090 6 Attestation signed by Carolina Mahmood DO at 05/28/18 183 I have seen and examined the patient with Kyra WASSERMAN. Agree with assessment and pl an as out lined below. In summary, this is a 23-year-old female with a history of end-stage renal disease on hemodialysis (of which she is sometimes non-compliant) who presents with co ngestive heart failure with significant right pleural effusion and abdominal ascites. She swanson s undergone right thoracentesis and paracentesis. Echocardiogram demonstrates new onset ejec tion fraction of 25% as well as severe tricuspid regurgitation, mild to moderate mitral regu rgitation, and mild right ventricular dysfunction. Possible etiologies of her cardiomyopathy include viral myocarditis, ischemic cardiomyopathy, auto immune related, familial, idiopath ic etc. At this time, will focus on uptitrating her heart failure therapies and working towa rds getting her more euvolemic through dialysis. Once she is euvolemic, will determine appro priate timing for ischemic evaluation. Will continue to follow. Carolina Mahmood DO Cardiology Consult 05/28/2018, 11:18 AM Reason for Consult: Systolic heart failure Cardiomyopathy HPI: This is a 23 y.o. 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 She presented to [facility] last week with shortness of breath, cough, chills/sweats and nausea x 1 week and was starte d on doxycycline for suspected pneumonia. She did not improve and went to [facility] ED with CXR noting right pleural effusion and consolidation, she was discharged but ende d up back in [facility] ED due to worsening shortness of breath and was found to be hypox ic O2 sats 88%. She was transferred to [facility] for worsening right pleural effusion and consoli dation where she underwent right thoracentesis as well as paracentesis for ascites. Echocard iogram here demonstrating severely reduced LVEF of 20-25% with grade II diastolic dysfunctio n accompanied by RV enlargement/reduced systolic function, mild-moderate MR, severe TR with non-coaptation of the leaflets and pulmonary hypertension. Cardiology is consulted for furth er evaluation and management. She reports no previous cardiology care. She has undergone transthoracic echocardiogram in the past as part of transplant evaluation. Last echocardiogram at [facility] demonstrati ng normal LV and RV size and function. Trace TR and normal RVSP noted. She has noted intermi ttent sharp central chest pain over the past several weeks, worsened with supine position an d improved sitting forward. No exertional or pleuritic component. Her shortness of breath is exacerbated by exertion and supine position. She also had lower extremity edema which is no w improved. No lightheadedness or syncope. No palpitations. She is a former cigarette smoker , quit 3 months ago (0.5-1PPD x 3 years). She denies alcohol use, she does smoke marijuana r egularly to help with anxiety. Pertinent evaluation thus far includes respiratory filmarray positive for RSV. CT chest demonstrating large right and small left pleural effusion with complete collapse of righ t lower/middle lobes and partial collapse of right upper lobe. No evidence for pneumonia. BN P elevated at 1153. Troponin has not been checked, no available ECG. Telemetry revealing sin us rhythm 70s bpm with no significant arrhythmias. Prior to admission cardiovascular medicat ions include losartan as well as Plavix. She has been started on afterload reduction with hy dralazine and isosorbide mononitrate this admission. She has also been started on Lopressor. Past Medical History Diagnosis Date Anemia Clotted dialysis access ([facility]) 2014 ESRD (end stage renal disease) (HCC) HSP (Henoch-Schonlein purpura) nephritis Hypertension Past Surgical History Procedure Laterality Date ABDOMINAL SURGERY AV FISTULA PLACEMENT AV FISTULA PLACEMENT Left 04/08/2014 Procedure: AV FISTULA; Surgeon: Rik Simon MD; Location: [facility] OR; Service: Vascula r; Laterality: Left; cephalic AV FISTULA REPAIR Left 03/07/2014 Procedure: AV FISTULA - GRAFT REPAIR/REVISION; Surgeon: Rik Simon MD; Location: [facility] IN OR; Service: Vascular; Laterality: Left; DECLOT GRAFT Left 03/07/2014 Procedure: GRAFT - DECLOT; Surgeon: Rik Simon MD; Location: [facility] MAIN OR; Service: Vas cular; Laterality: Left; DIALYSIS FISTULA CREATION N/A 04/08/2014 Procedure: DIALYSIS CATHETER - INSERTION; Surgeon: Rik Simon MD; Location: [facility] OR ; Service: Vascular; Laterality: N/A; tunneled catheter LAPAROSCOPIC PERITONEAL DIALYSIS CATHETER INSERTION x2 LAPAROSCOPIC PERITONEAL DIALYSIS CATHETER INSERTION Right 07/2013 current dialysis access MWF dialysis RENAL BIOPSY SUPERFICIALIZATION OF AV FISTULA Left 06/24/2014 Procedure: AV FISTULA - SUPERFICIALIZATION; Surgeon: Rik Simon MD; Location: [facility] MAIN OR; Service: Vascular; Laterality: Left; Allergies Allergen Reactions Fentanyl Itching Iodinated Diagnostic Agents Itching Pt c/o face itching during fistulagram Morphine Rash Tape [Adhesive Tape] Rash Use silk tape only Prescriptions Prior to Admission Medication Sig Dispense Refill Last Dose citalopram (CELEXA) 20 MG tablet Take 20 mg by mouth nightly. 05/25/2018 at Unknown ti me clopidogrel (PLAVIX) 75 MG tablet Take 75 mg by mouth daily. Indications: Treatment to Prevent a Blood Clot in a Vascular Stent Taking at Unknown time doxycycline (VIBRA-TABS) 100 MG tablet Take 100 mg by mouth 2 (two) times daily. 05/25 at Unknown time Etelcalcetide HCl (PARSABIV IV) Inject into the vein 3 (three) times a week. 05/26/19 19 HYDROcodone-acetaminophen (NORCO) 5-325 MG per tablet Take 2 tablets by mouth nightly a s needed for Pain. 05/25/2018 at Unknown time losartan (COZAAR) 100 MG tablet Take 100 mg by mouth nightly. 05/25/2018 at Unknown ti me ondansetron (ZOFRAN) 4 MG tablet Take 4 mg by mouth every 6 (six) hours as needed for N ausea. 05/25/2018 sucroferric oxyhydroxide (VELPHORO) 500 MG chewable tablet Take 500 mg by mouth 3 (thre e) times daily with meals. 05/25/2018 at Unknown time Medications (Current): Current Facility-Administered Medications Medication Dose Route Frequency Provider Last Rate Last Dose acetaminophen (TYLENOL) tablet 650 mg 650 mg Oral Q6H PRN Mayco Rizvi MD Or acetaminophen (TYLENOL) suppository 650 mg 650 mg Rectal Q6H PRN Mayco Rizvi MD benzonatate (TESSALON) capsule 100 mg 100 mg Oral TID PRN Mayco Rizvi MD calcium carbonate (TUMS) chewable tablet 1,000 mg 1,000 mg Oral BID Anthony Figueroa MD 1,000 mg at 05/27/188 cetirizine (ZyrTEC) tablet 10 mg 10 mg Oral Daily Anthony Figueroa MD 10 mg at 9 1217 clopidogrel (PLAVIX) tablet 75 mg 75 mg Oral Daily Anthony Figueroa MD heparin (porcine) 5000 unit/0.5mL injection 5,000 Units 5,000 Units Subcutaneous 3 franco es per day Anthony Figueroa MD 5,000 Units at 05/28/18 0626 hydrALAZINE (APRESOLINE) tablet 10 mg 10 mg Oral TID Marnie Anguiano MD 10 mg at 05/28 0625 HYDROcodone-acetaminophen (NORCO) 5-325 MG per tablet 1 tablet 1 tablet Oral Q4H PRN S kp Figueroa MD 1 tablet at 05/28/18 0432 HYDROmorphone (DILAUDID) injection 0.5 mg 0.5 mg Intravenous Q30 Min PRN Anthony Figueroa MD isosorbide mononitrate (IMDUR) 24 hr tablet 30 mg 30 mg Oral QPM Marnie Anguiano MD 30 mg at 05/27/182015 losartan (COZAAR) tablet 25 mg 25 mg Oral Daily Marnie Anguiano MD Stopped at 05/28/18 0955 metoprolol (LOPRESSOR) tablet 25 mg 25 mg Oral BID Mayco Rizvi MD Stopped at 9 0955 nicotine (NICODERM CQ) 14 MG/24HR patch 1 patch 1 patch Transdermal Daily Mayco Rizvi MD ondansetron (ZOFRAN-ODT) disintegrating tablet 4 mg 4 mg Oral Q6H PRN Camille López Or ondansetron (ZOFRAN) injection 4 mg 4 mg Intravenous Q8H PRN Anthony Figueroa MD 4 mg at 05/27/18 1615 pantoprazole (PROTONIX) EC tablet 40 mg 40 mg Oral QAM AC Anthony Figueroa MD 40 mg at 05/28/18 0625 polyethylene glycol (GLYCOLAX) packet 17 g 17 g Oral Daily PRN Mayco Rizvi MD promethazine (PHENERGAN) IVPB 12.5 mg 12.5 mg Intravenous Q6H PRN Jeronimo Horvath MD 12.5 mg at 05/28/18 0630 senna-docusate (PERICOLACE) 8.6-50 MG per tablet 3 tablet 3 tablet Oral Nightly Stephani Figueroa MD 3 tablet at 05/27/18 2208 sevelamer (RENVELA) tablet 1,600 mg 1,600 mg Oral TID Marnie Anguiano MD Stopped at 05/27/18 1632 zolpidem (AMBIEN) tablet 5 mg 5 mg Oral Nightly PRN Mayco Rizvi MD History reviewed. No pertinent family history. Social History Substance Use Topics Smoking status: Former Smoker Packs/day: 0.50 Years: 0.50 Smokeless tobacco: Never Used Alcohol use Yes Comment: occassional Review of Systems: CONSTITUTIONAL: No recent significant weight change. Unsure if fever, positive for chills and sweats. NEUROLOGIC: No dizziness, lightheadedness. No numbness, tingling, paresthesias. No syncope . EYES: No recent visual changes ENT: No hearing loss, dysphagia. Recent epistaxis x 1. ENDOCRINE: No excessive hunger, thirst. PULMONARY: Recent/ongoing dyspnea, orthopnea. Recent cough. . CARDIOVASCULAR: Recent chest pain as per HPI. No palpitations. Lower extremity edema noted , improved. GASTROINTESTINAL: Has noted some abdominal pain since paracentesis. Recent nausea, denies vomiting. No diarrhea. No melena or hematochezia. RENAL/: ESRD on HD. Makes some urine. No hematuria. HEMATOLOGY/ONCOLOGY: Denies easy bruising or bleeding. MUSCULOSKELETAL: No myalgias, arthralgias. CUTANEOUS: She has noted speckly red rash to her lower extremities bilaterally below the k nees but improving. PSYCHIATRIC: Endorses depression, anxiety. Denies suicidal or homicidal ideation. Objective: Vital signs: Temp (24hrs), Av.6 F (36.4 C), Min:97.1 F (36.2 C), Max:98.1 F (36.7 C) Vitals: 05/27/18 2316 05/28/18 0345 05/28/18 0625 05/28/18 0745 BP: 118/73 123/80 110/75 116/71 BP Location: Right upper arm Right upper arm Right upper arm Pulse: 73 69 70 Resp: 18 Temp: 98.1 F (36.7 C) 97.1 F (36.2 C) TempSrc: Oral Oral SpO2: 98% 91% 91% Weight: Height: Weight(s): Wt Readings from Last 4 Encounters: 05/26/18 96.9 kg (213 lb 10 oz) 07/09/16 96.9 kg (213 lb 10 oz) 09/01/15 99.8 kg (220 lb) (99 %, Z= 2.21)* 08/13/15 (!) 103.4 kg (228 lb) (99 %, Z= 2.29)* * Growth percentiles are based on [facility] 2-20 Years data. Current Height: Ht Readings from Last 1 Encounters: 05/26/18 1.702 m (5' 7") BMI: Body mass index is 33.46 kg/m. Intake/Output last 3 shifts: Intake/Output Summary (Last 24 hours) at 05/28/18 1118 Last data filed at 05/28/18 0432 Gross per 24 hour Intake 1900 ml Output 2447 ml Net -547 ml Physical Exam: GENERAL: Well developed, obese, in no distress [...] are normal in a ll 4 quadrants. The abdominal aortic pulsation is not palpable. EXTREMITIES: No edema. Radial pulses 2+ right, difficult to palpate on the left. AVF noted left arm. Femoral pulses are 2+ bilaterally without bruits. DP and PT pulses are 2+ bilat erally. SKIN: Warm and dry, capillary refill is normal.. NEUROLOGIC: Awake, alert and oriented x 3. No focal motor deficits. PSYCHIATRIC: Appropriate, affect appears normal Labs: CBC: Lab Results Component Value Date WBC [...] ALT 64 05/26/2018 EGFR 5 (L) 05/27/2018 BMP: Lab Results Component Value Date NA 135 05/27/2018 K 5.9 (H) 05/27/2018 CL 96 (L) 05/27/2018 CO2 25 05/27/2018 ANIONGAP 20 05/27/2018 GLUF 74 05/27/2018 BUN 51 (H) 05/27/2018 CREATININE 9.2 (H) 05/27/2018 BCR 6 05/27/2018 CA 9.4 05/27/2018 EGFR 5 (L) 05/27/2018 Magnesium: Lab Results Component Value Date MG 2.7 (H) 05/27/2018 Phosphorus: Lab Results Component Value Date PHOS 8.0 (H) 05/27/2018 PT/INR: Lab Results Component Value Date INR 1.6 05/26/2018 PTT: Lab Results Component Value Date APTT 29 05/26/2018 [APTT Troponin: No results found for: TROPONINI Last 3 Troponin: No results found for: TROPONINI HgBA1c: No results found for: HGBA1C, LABGLYC TSH: No results found for: TSH, TSHNEO CPK:No components found for: CPK Telemetry: Sinus rhythm 70s, no significant arrhythmias Review of studies: ECG: pending Echocardiogram 05/27/18 (report reviewed today): Impression 1. Sinus rhythm. 2. A 2-dimensional transthoracic echocardiogram with m-mode, spectral and color flow Dopple r was perfomed. 3. This was a technically adequate study. 4. Overall left ventricular systolic function is severely impaired with, an EF between 20 - 25 %. 5. The left ventricle cavity size is normal. 6. There is mild concentric left ventricular hypertrophy. 7. There is severe global hypokinesis of LV contractility. 8. There is septal flattening in diastole which is consistent with right ventricular volume overload. 9. Pseudonormal LV diastolic filling pattern, consistent with elevated LA pressure and mode rate dysfunction (Grade II). 10. The right ventricle is moderately enlarged. 11. The right ventricular systolic function is mildly impaired. 12. The left atrial size is normal. 13. The right atrium is moderately enlarged. 14. The aortic valve is trileaflet. 15. There is mild aortic regurgitation. 16. There is no evidence of aortic stenosis. 17. The mitral valve is normal. 18. Oqaj-by-uofevome eccentric mitral regurgitation is present. 19. Severe tricuspid regurgitation present. 20. The right ventricular systolic pressure (pulmonary artery systolic pressure), as measur ed by Doppler, is 30+15=45 mmHg. Non-coaptation of the TV leaflets. 21. Mild pulmonic regurgitation. 22. There is no pericardial effusion. 23. Pleural effusion present. 24. The IVC is dilated (>2.5cm) and does not collapse with sniff, consistent with central venous pressures of 15 mmHg. 25. The aortic root, ascending aorta and aortic arch are normal. 26. No mass visualized 27. No clot visualized Previous echocardiogram ([facility] 01/20/2015) report reviewed today: Summary: 1. End-stage renal disease. 2. Trace tricuspid valve regurgitation estimating a right ventricular systolic pressure of 17 mmHg plus the right atrial pressure. 3. Normal right ventricular size and qualitatively normal systolic function. 4. Normal left ventricular size and normal systolic function. 5. No pericardial effusion. Impression/Plan: This is a 23 y.o. 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 She was transferred from [facility] ED to [facility] ED for worsening right pleu ral effusion and consolidation where she underwent right thoracentesis as well as paracentes is for ascites. Echocardiogram here demonstrating severely reduced LVEF of 20-25% with grade II diastolic dysfunction accompanied by RV enlargement/reduced systolic function, mild-mode rate MR, severe TR with non-coaptation of the leaflets and pulmonary hypertension. Cardiolog y is consulted for further evaluation and management. 1. Shortness of breath, improving - Multifactorial. Initial CXR with right pleural effusion , consolidation. CT chest negative for pneumonia. RSV positive. Additionally with ascites an d biventricular heart failure. S/p right thoracentesis with 1L removed and paracentesis with 4L removed on 05/26/18. For repeat right thoracentesis today as CXR 05/27/18 demonstrating la rge right pleural effusion still with near complete atelectasis of nearly entire right lung. HD/UF per nephrology. Pulmonology following 2. Right pleural effusion with atelectasis - As above 3. RSV infection - On supportive therapy. 4. Ascites - S/P paracentesis as above 5. Elevated LFTs - Acute hepatitis panel and US abdomen pending 6. HSV lesions upper lip 7. Cardiomyopathy with LVEF 20-25% and reduced RV systolic function - New diagnosis. May be related to a viral myocarditis vs other but may need to consider ischemic evaluation to exc lude underlying CAD. Will defer for now. Continue losartan. Will switch Lopressor to Toprol XL. She was started on isosorbide mononitrate and hydralazine. Will switch to isosorbide din itrate. Uptitrate meds gradually as able per BP. Will also check TSH, ESR, CRP and serum hCG . 8. Acute combined systolic/diastolic heart failure - Medical management as above. Continue I/O and daily weights and HD per nephrology. 9. Chest pain concerning for possible pericarditis - Would not be surprising given acute vi ral illness with RSV. Will check ECG, troponins. No pericardial effusion on echocardiogram. She is on colchicene. 10. Valvular heart disease - Mild-moderate MR, severe TR with non-coaptation. She is volume overloaded, will need to repeat echocardiogram when she is back to baseline. 11. Pulmonary hypertension - RVSP 45 mmHg on echo 12. ESRD 2/2 HSP nephritis, on HD - Nephrology following, HD today 13. Anemia 2/2 ESRD - Hemoglobin stable. Nephrology managing 14. Hypertension - Will need to monitor for low BP as medications are being added for cardi omyopathy/afterload reduction as above 15. Asthma - No wheezing on exam today 16. Marijuana use Full code Summary of recommendations: Switch Lopressor to Toprol XL and switch Imdur to Isordil as above Check ECG, troponins Check TSH, ESR and CRP Daily weights and strict I/O Continue telemetry Possible ischemic evaluation in the future, defer for now Re-evaluate valvular heart disease, LV/RV function with echocardiogram once she recovers Dr. Mahmood to follow. Thank you for this consult. The patient was seen and all labs, imaging and ECGs were review ed. Case was discussed and recommendations were developed in conjunction with Dr. Carolina jarrett. LUX Feldman 05/28/2018 akaia, Dedra Arango MD - 05/27/2018 2:12 PM PDT Consult* by Nicole Villasenor MD at 05/27/18 1412 Author: Nicole Villasenor MD Service: Pulmonology Author Type: Physician Filed: 05/30/18 0934 Date of Service: 05/27/18 1412 Status: Addendum Faculty Research Physician: Nicole Villasenor MD (Physician) Related Notes: Original Note by Nicole Villasenor MD (Physician) filed at 05/27 1433 [facility] Service: PULMONOLOGY Initial Consult Note Date of Admission: 05/26/2018 Reason for Consultation: R lung collapse from large pleural effusion. Requesting Physician: Dr Figueroa, Hospitalist History Obtained From: patient CHIEF COMPLAINT: Shortness of breath HISTORY OF PRESENT ILLNESS The patient is a 23 y.o. female with significant past medical history of ESRD on HD TIW, HS P, HTN, asthma on prn albuterol inhaler, admitted for worsening dyspnea over two weeks. She says that she developed a congested cough productive of white sputum, and was generally feel ing unwell about two weeks ago. The cough became dryer, and then she noted worsening dyspnea . She was brought to the ED in [facility] and was transferred here. She reports that she has noted slowly enlarging abdomen and more distended abdomen since . She says people have asked if she were . She denies any chronic dyspnea, an d only started complaining of shortness of breath since she became acutely ill. She says vilma t she was non compliant with her HD back in November, but she is better now. Per Nephrology notes on her chart, it seems that she continues to be under dialyzed (only doing 2 hours in stead of 4). She denies pedal edema. She reports that she is compliant with fluid and salt r estriction. She lives alone and her mother cannot comment about this. She denies aspiration or uncontrolled reflux. She has no chest pains. Lately, she has complained of orthopnea. She says that she stopped smoking three months ago. She smoked for only 3 years. She contin ues to smoke marijuana for her mood. REVIEW OF SYSTEMS Review of Systems Constitutional: Positive for malaise/fatigue. Negative for chills, diaphoresis, fever and w eight loss. HENT: Positive for congestion. Negative for nosebleeds and sore throat. Eyes: Negative. Negative for blurred vision, photophobia, pain and redness. Respiratory: Positive for cough, sputum production and shortness of breath. Negative for he moptysis, wheezing and stridor. Cardiovascular: Positive for orthopnea. Negative for chest pain, palpitations, leg swelling and PND. Gastrointestinal: Negative for abdominal pain, blood in stool, constipation, diarrhea, hear tburn, melena, nausea and vomiting. Abdominal distention and ascites Genitourinary: Negative for dysuria, flank pain, frequency and urgency. Musculoskeletal: Negative for back pain, joint pain, myalgias and neck pain. Skin: Positive for rash (has a cold sore for about a month now). Negative for itching. Neurological: Negative for dizziness, sensory change, speech change, focal weakness, loss o f consciousness, weakness and headaches. Past Medical History Diagnosis Date Anemia Clotted dialysis access (HCC) 2014 ESRD (end stage renal disease) (HCC) HSP (Henoch-Schonlein purpura) nephritis Hypertension Past Surgical History Procedure Laterality Date ABDOMINAL SURGERY AV FISTULA PLACEMENT AV FISTULA PLACEMENT Left 04/08/2014 Procedure: AV FISTULA; Surgeon: Rik Simon MD; Location: [facility] MAIN OR; Service: Vascula r; Laterality: Left; cephalic AV FISTULA REPAIR Left 03/07/2014 Procedure: AV FISTULA - GRAFT REPAIR/REVISION; Surgeon: Rik Simon MD; Location: [facility]; Service: Vascular; Laterality: Left; DECLOT GRAFT Left 03/07/2014 Procedure: GRAFT - DECLOT; Surgeon: Rik Simon MD; Location: [facility] MAIN OR; Service: Vas cular; Laterality: Left; DIALYSIS FISTULA CREATION N/A 04/08/2014 Procedure: DIALYSIS CATHETER - INSERTION; Surgeon: Rik Simon MD; Location: [facility] MAIN OR ; Service: Vascular; Laterality: N/A; tunneled catheter LAPAROSCOPIC PERITONEAL DIALYSIS CATHETER INSERTION x2 LAPAROSCOPIC PERITONEAL DIALYSIS CATHETER INSERTION Right 07/2013 current dialysis access MWF dialysis RENAL BIOPSY SUPERFICIALIZATION OF AV FISTULA Left 06/24/2014 Procedure: AV FISTULA - SUPERFICIALIZATION; Surgeon: Rik Simon MD; Location: [facility] MAIN OR; Service: Vascular; Laterality: Left; Allergies Allergen Reactions Fentanyl Itching Iodinated Diagnostic Agents Itching Pt c/o face itching during fistulagram Morphine Rash Tape [Adhesive Tape] Rash Use silk tape only Prescriptions Prior to Admission Medication Sig Dispense Refill Last Dose citalopram (CELEXA) 20 MG tablet Take 20 mg by mouth nightly. 05/25/2018 at Unknown ti me clopidogrel (PLAVIX) 75 MG tablet Take 75 mg by mouth daily. Indications: Treatment to Prevent a Blood Clot in a Vascular Stent Taking at Unknown time doxycycline (VIBRA-TABS) 100 MG tablet Take 100 mg by mouth 2 (two) times daily. 05/25 at Unknown time Etelcalcetide HCl (PARSABIV IV) Inject into the vein 3 (three) times a week. 05/26/19 19 HYDROcodone-acetaminophen (NORCO) 5-325 MG per tablet Take 2 tablets by mouth nightly a s needed for Pain. 05/25/2018 at Unknown time losartan (COZAAR) 100 MG tablet Take 100 mg by mouth nightly. 05/25/2018 at Unknown ti me ondansetron (ZOFRAN) 4 MG tablet Take 4 mg by mouth every 6 (six) hours as needed for N ausea. 05/25/2018 sucroferric oxyhydroxide (VELPHORO) 500 MG chewable tablet Take 500 mg by mouth 3 (thre e) times daily with meals. 05/25/2018 at Unknown time Scheduled Medications calcium carbonate 1,000 mg Oral BID cetirizine 10 mg Oral Daily [START ON 05/28/2018] clopidogrel 75 mg Oral Daily heparin (porcine) [...] ondansetron O R ondansetron, polyethylene glycol, zolpidem History reviewed. No pertinent family history. Social History Social History Marital status: Single Spouse name: N/A Number of children: N/A Years of education: N/A Occupational History Not on file. Social History Main Topics Smoking status: Former Smoker Packs/day: 0.50 Years: 0.50 Smokeless tobacco: Never Used Alcohol use Yes Comment: occassional Drug use: Yes Types: Marijuana Sexual activity: Not on file Other Topics Concern Not on file Social History Narrative No narrative on file PHYSICAL EXAM Vital Signs: BP 131/87 (BP Location: Right [...] (5' 7")] 170.2 cm (5' 7") (05/26 1724) Weight: [96.9 kg (213 lb 10 oz)] 96.9 kg (213 lb 10 oz) (05/27 1911) Intake/Output Summary (Last 24 hours) at 05/27/18 1422 Last data filed at 05/27/18 1115 Gross per 24 hour Intake 657 ml Output 0 ml Net 657 ml I/O last 3 completed shifts: In: 347 [P.O.:347] Out: - I/O this shift: In: 310 [P.O.:310] Out: - Physical Exam Vital signs reviewed. GENERAL: pleasant, cooperative, oriented, not in distress HEENT: pink conjunctiva, anicteric sclerae, moist oral mucosae and without any lesions; JVP up to angle of the jaw ; MALAMPATTI 3; no thyromegaly; no cervicolymphadenopathies CVS: PMI laterally displaced, NRRR, S1 and S2, no murmurs/gallops/rubs CHEST: Examination of the chest was unremarkable. There were no bony deformities, no asymme try, and no other abnormalities. LUNGS: Normal effort, Equal in expansion, R lung with dull percussion notes from base to up per lung zone, L base dull as well, decreased breath sounds on R lung ABDOMEN: Obese abdomen, NABS, non-tender on palpation, no masses palpated, still with fluid wave EXTREMITIES: good distal pulses, no cyanosis, no edema, no clubbing, no nail abnormalities NEURO: awake and oriented, no focal neurologic deficits DATA CBC: Recent Labs Lab 05/27/1842405/26/18 1214 WBC 6.62 5.73 RBC 3.48* 3.32* HGB 12.5 12.1 HCT 37.9 36.1 MCV 108.8* 108.7* MCH 35.8* 36.3* MCHC 32.9 33.4 RDW 59.1* 59.9* PLT 139* 151 MPV 9.9 10.1 DIFFTYPE AUTOMATED AUTOMATED Platelets: Recent Labs Lab 05/27/1842405/26/18 1214 PLT 139* 151 CMP: Recent Labs Lab 05/27/1842405/26/18 1214 NA 135 140 K 5.9* 4.6 CL 96* 99 CO2 25 27 BUN 51* 41* CREATININE 9.2* 7.89* PROT -- 7.2 BILITOT -- 1.1 ALT -- 64 AST -- 82* Calcium: No results for input(s): CALCIUM in the last 168 hours. Magnesium: Recent Labs Lab 05/27/18 0425 MG 2.7* Pulmonary Functions Testing Results: No results found for: FEV1, FVC, [id number], TLC, DLCO Xr Chest 2 View Result Date: 05/27/2018 [...] Lewis John Sign Date/Time: 05/26/2018 4:55 PM Echo Cardiac Adult Complete Result Date: [...] 17. The mitral valve is normal. 18. Jvfd-br-kulcz ate eccentric mitral regurgitation is present. 19. [...] mass visu alized 27. No clot visualized Results Procedure Component Value Units Date/Time Respiratory Filmarray [[id number]] (Abnormal) Collected: 05/26/181805 Specimen: Nasopharynx/Oropharynx Updated: 05/26/182141 [...] performed by Molecular Methodology MRSA by PCR [[id number]] Collected: 05/26/181805 Specimen: Nasopharyngeal from Nares(Nose) Updated: 05/26/182025 SOURCE NARES(NOSE) MRSA PCR NEGATIVE Culture, Body Fluid [[id number]] Collected: 05/26/18 1412 Specimen: Body Fluid from Pleural Fluid Updated: 05/26/18 1811 Albumin, Body Fluid [[id number]] Collected: 05/26/18 141 Specimen: Body Fluid from Lung, Right Lower Lobe Updated: 05/26/18 1729 FLUID ALBUMIN 2.3 g/dL Total Protein, Body Fluid [[id number]] Collected: 05/26/18 141 Specimen: Body Fluid from Lung, Right Lower Lobe Updated: 05/26/18 1729 FLUID TOTAL PROTEIN 4.2 g/dL FLUID TP SOURCE PLEURAL FLUID Cell count, Body Fluid [[id number]] Collected: 05/26/18 141 Specimen: Body Fluid from Lung, Right Lower Lobe Updated: 05/26/18 1708 FLUID TYPE PLEURAL FLUID COLOR SAMMIE APPEARANCE CLOUDY RBC'S 3,000 /mm3 TOTAL NUCLEATED CELLS 253 /mm3 NEUTROPHILS 22 % LYMPHOCYTES 8 % MONOCYTES/MACROPHAGES 65 % Mesothelial Cells 5 % CELLS COUNTED 100 Culture, Body Fluid [[id number]] Collected: 05/26/18 1513 Specimen: Other from Ascites Fluid Updated: 05/26/18 1631 Specimen Description ASCITES FLUID GRAM STAIN STAIN PERFORMED ON CYTOSPIN GRAM STAIN WBC'S SEEN GRAM STAIN NO EPITHELIAL CELLS SEEN GRAM STAIN NO ORGANISMS SEEN CULTURE PENDING pH, Body Fluid [[id number]] Collected: 05/26/18 141 Specimen: Body Fluid from Lung, Right Lower Lobe Updated: 05/26/18 1508 FLUID PH 7.45 Results for DARA LOUISE ( ) as of 05/27/2018 14:32 Ref. Range 05/27/2018 04:25 BRAIN NATRIURETIC PEPTIDE Latest Ref Range: 0 - 100 pg/mL 1,153.92 (H) PROBLEM LIST Active Problems: ESRD on hemodialysis SOB (shortness of breath) Pleural effusion on right Non-compliance ASSESSMENT & PLAN 1. Bilateral pleural effusion, R more than L. This is likely from chronic renal disease and the fact that she has been underdialyzed for a while now. She says that she has been more c ompliant with her treatments. Post thoracentesis on the R with 1L of fluid, but based on brenda m, she still a good amount of effusion present. Suggest that this be revisited tomorrow so t hat she can undergo thoracentesis once again with goal of taking out as much as she can tole rate. However, ascites, if still present, also needs to be addressed, since ascites fluid wi ll just go back into her thoracic space. Culture and cytology of effusion is pending. Cell count does not suggest an infection. Unfo rtunately, studies done were incomplete to classify effusion based on Light's or modified Brenda aguilar's criteria. Pls send pleural fluid LDH and cholesterol. 2. Right lung collapse. This is a direct consequence of significant effusion on the R side. The right lung is expected to re-expand once the pressure exerted by the pleural effusion i s relieved. 3. RSV infection. Continue supportive txt. May do prn albuterol. She is not very wheezy cur rently. 4. Asthma. Unclear if she really does have asthma. She is not maintained on any long acting inhalers. Continue with albuterol for now. 5. Marijuana use. Advise to not use inhaled or smoked marijuana. These may have detrimental effects on the lungs as well. 6. Tobacco use. She has stopped 3 months ago. ADDENDUM: Echo noted to have reduced EF at 25%. Cardiomyopathy and underlying renal disease both contribute to pleural effusions. Therapy would be addressing better control of these i ssues. Code Status: Full Code Primary Care Physician: TIEN NICHOLSON Thank you for allowing me to participate in the care of this patient. Please call if there are any additional questions. Nicloe Villasenor MD 05/27/2018 koum, F getachew Mckeon MD - 05/27/2018 11:54 AM PDTFormatting of this note might be different from the origi nal. Consults by Marnie Anguiano MD at 05/27/18 1575 Author: Marnie Anguiano MD Service: Nephrology Author Type: Physician Filed: 05/27/18 6885 Date of Service: 05/27/18 2286 Status: Signed Faculty Research Physician: Marnie Anguiano MD (Physician) Consult Orders: 1. Consult to Nephrology [[id number]] ordered by Mayoc Rizvi MD at 05/26/18 3942 Hospital Problem List: Active Problems: ESRD on hemodialysis SOB (shortness of breath) Pleural effusion on right Non-compliance I was asked by the admitting team to see Ms. Louise in consult today. As the admitting/co nsulting team is familiar with her case, I will not state her past history in detail. Briefl y, she is a 23 y.o. female patient with history as delineated in the Past Medical & Surgical History sections. She was admitted with symptomatic large right pleural effusion. I was called in to evaluate her for opinion on urgent dialysis need. She presented with: Had dyspnea on minimal exertion starting this last Monday. Worsened over the next few days. Was put on "an antibiotic" for pneumonia at [facility] ED. Was throwing up & could not keep it down. Severe worsening of the dyspnea yesterday. This week she had 1.5 dialysis treatments. In the ED she had 4L paracentesis, and 1L thoracentesis yesterday. History & ROS obtained from : patient, primary team, chart review. The patient has history of ESRD, with non-adherence to dialysis or diet restrictions. She says that she feels 'fair ' today. No history of blurred vision tinnitus, headache, fever, chills, or cough. No naus ea, vomiting, abdominal pain, diarrhea, melena, or hematochezia. No chest pain, palpitation , dizziness, loss of consciousness, orthopnea, paroxysmal nocturnal dyspnea, or leg edema. No dysuria, incontinence, or symptoms of UTI. She makes minimal urine. The following portions of the patient's history were reviewed and updated as appropriate: a llergies, current medications, past medical history, past social history, past surgical hist ory, family history and problem list. I also reviewed with her preadmission records; these w ere very informative. ROS: As in History of Present Illness above & Assessment below. All the twelve systems were reviewed and were otherwise negative. cefTRIAXone 1 g Intravenous Q24H And azithromycin [...] QAM AC senna-docusate 3 tablet Oral Nightly I/O last 3 completed shifts: In: 347 [P.O.:347] Out: - I/O this shift: In: 310 [P.O.:310] Out: - P.E. BP 131/87 (BP Location: Right upper arm) [...] movements are normal. Lungs: Clear to auscultation bilaterally. There are no wheezes. Heart: Regular rate and rhythm without any rub, gallop. Grade 2/[address] at the apex. Abdominal exam: Soft and nontender with normal bowel sounds. Musculoskeletal: No costovertebral angle tenderness bilaterally. Extremities: Warm to touch with no leg edema. There is no cyanosis. Skin: There are no rashes, petechiae, or ecchymosis. Neurological: Awake, alert, and oriented to time, place, and person. Normal gross motor po wer. There is no asterixis. Psychiatric: The patient s behavior is normal. Judgment and thought content are normal. Access: Left arm AVF with good thrill. Lab Results Component Value Date BUN 51 (H) 05/27/2018 CREATININE 9.2 (H) 05/27/2018 EGFR 5 (L) 05/27/2018 NA 135 05/27/2018 K 5.9 (H) 05/27/2018 CL 96 (L) 05/27/2018 CO2 25 05/27/2018 CA 9.4 05/27/2018 PHOS 8.0 (H) 05/27/2018 MG 2.7 (H) 05/27/2018 ALB 4.3 05/26/2018 HGB 12.5 05/27/2018 Assessment/Recommendations: Ms. Louise is a 23 y.o. female patient with ESRD, HD. Longstanding history of non-adheren ce to dialysis or diet restrictions Presented with: worsening dyspnea, at rest the day of presentation Admitted with: symptomatic large right pleural effusion VOLUME: EABV is mildly up now No IVF need No diuresis as ineffective Advise fluid restriction of 1.2 L per 24 hrs There is no acute UF indication; will plan it for AM Given her tendency for anasarca: Encourage adequate intake & close dietitian F/U. Encourage ambulation safely. Encourage the adequate use of an incentive spirometer. RENAL FUNCTION: Minimal RKF There is no acute BOGGER OPERATOR indication, plan for tomorrow AM No IVF need Strict I/O & daily weights. Dose all of her meds to her current intermittent HD. Continue to avoid all kinds of nephrotoxins. Target euvolumia with a MAP>75 mmHg as possible. BLOOD PRESSURE: controlled Vasoactive meds as ordered Decrease Losartan to 25 mg daily (because of the hyperkalemia now; expect the hyperK to imp rove soon, then the Losartan can be uptitrated) Monitor BP closely & frequently ELECTROLYTES: abnormal. No acute BOGGER OPERATOR indication; plan it for AM Sodium: ok Potassium: hyperK, stressed strict low K diet. Will give 1 dose of Kayexalate Calcium: ok Magnesium: mildly up Phosphorus: hyperphos, stressed strict low phos diet Acid/Base: ok Reinforce lytes protocol ALBUMIN: No hypoalbuminemia ANEMIA: None now No current ESTEFANY need OTHER: 2D Echo findings reviewed: Cancel Kayexalate Will HD/UF today on an urgent basis Start low doses of Imdur & Hydralazine as ordered Restart the Losartan tomorrow at 25 mg daily only I discussed today with Ms. Louise the meaning of her presenting symptoms and the interact ion of that with her severe LV systolic dysfunction & her non-adherence to dialysis or diet restrictions. I discussed with the primary team the case at the time of this encounter. I spent 70 total minutes today in interviewing & examining the patient, reviewing & updatin g the patient's chart, formulating a plan, in addition to patient education and discussions with the primary/consulting team. Thank you Po Rizvi & Henry for the opportunity to see this patient in consult today. Please do not hesitate to call me at any time with questions or concerns. MARNIE ANGUIANO MD documented in this enc ounter ED Notes Conversion Transaction, Provider Unknown - 05/26/2018 2:15 PM PDTFormatting of this note m ight be different from the original. ED Notes by Luis yAoub RN at 05/26/18 1415 Author: Luis Ayoub RN Service: Emergency Department Author Type: Registered Nurse Filed: 05/26/18 1415 Date of Service: 05/26/18 141 Status: Signed Faculty Research Physician: Luis Ayoub RN (Registered Nurse) Dr. Glass at bedside with tech for paracentesis and thoracentesis. Luis Ayoub RN 05/26/18 1415 onver arturo Transaction, Provider Unknown - 05/26/2018 1:04 PM PDT ED Notes by Luis Ayoub RN at 05/26/18 1304 Author: Luis Ayoub RN Service: Emergency Department Author Type: Registered Nurse Filed: 05/26/18 1304 Date of Service: 05/26/18 1304 Status: Signed Faculty Research Physician: Luis Ayoub RN (Registered Nurse) Dr. Glass at bedside. Luis Ayoub RN 05/26/18 1304 rabtr Aneudy muhammad MD - 05/26/2018 12:01 PM PDT ED Provider Notes by Aneudy Glass MD at 05/26/18 1201 Author: Aneudy Glass MD Service: -Emergency Author Type: Physician Filed: 05/26/18 1623 Date of Service: 05/26/18 1201 Status: Signed Faculty Research Physician: Aneudy Glass MD (Physician) Procedure Orders: 1. Thoracentesis [[id number]] ordered by Aneudy Glass MD at 05/26/18 1323 2. Paracentesis [[id number]] ordered by Aneudy Glass MD at 05/26/18 1323 [facility] Department of Emergency Medicine Pertinent History and Concerns: Pt presented with SOB, hypoxia. Large right pleural effusi on. On ESRD. Last dialyzed yesterday. (05/26/18 1043 : Florian Nelson MD) History of Present Illness Patient Identification Dara R Shiraz is a 23 y.o. female. Patient information was obtained from EMS personnel. History/Exam limitations: none. Patient presented to the Emergency Department by: Chief Complaint Chief Complaint Patient presents with Shortness of Breath Referral Transfer from [facility] 12:01 PM The patient presents to ED with complaints of shortness of breath Location: Respiratory Quality: Increasingly worsening Severity: Moderate Context: Patient was transferred to this facility from [facility] ED, where she was seen earlier today for similar symptoms. EMS states the patient was discharged from [facility] yesterday for right pleural effusion. She began to have nausea and emesis today, with wors ening shortness of breath, which is the reason she returned to [facility] ED. EMS states the ED called the patient's [employer] tale[employer] manager who wanted the patient to be transferred here. EMS reports the patient is currently on dialysis for kidney failure, Patient states she has had kidney failure since she was 10 years old from strep throat that was not treated and she has currently been on dialysis for the past 6 years. Patient also reports she has been having ep isodes of blurred vision that occurs every ten minutes. Patient states she is also having 6/ 10 chest pain that is worsened by laying back and deep inhalation. Timing: Worsening Duration:Yesterday Modifying factors: Pt is currently on dialysis. The patient also complains of nausea, emesis, chest pain, and episodes of blurred vision. Patient denies diarrhea, fever, cough, melena, or any other symptoms at this time. PCP: TIEN NICHOLSON Past Medical History Diagnosis Date Anemia Clotted dialysis access ([facility]) 2014 ESRD (end stage renal disease) ([facility]) HSP (Henoch-Schonlein purpura) nephritis Hypertension Past Surgical History Procedure Laterality Date ABDOMINAL SURGERY AV FISTULA PLACEMENT AV FISTULA PLACEMENT Left 04/08/2014 Procedure: AV FISTULA; Surgeon: Rik Simon MD; Location: [facility] MAIN OR; Service: Vascula r; Laterality: Left; cephalic AV FISTULA REPAIR Left 03/07/2014 Procedure: AV FISTULA - GRAFT REPAIR/REVISION; Surgeon: Rik Simon MD; Location: [facility] IN OR; Service: Vascular; Laterality: Left; DECLOT GRAFT Left 03/07/2014 Procedure: GRAFT - DECLOT; Surgeon: Rik Simon MD; Location: [facility] MAIN OR; Service: Vas cular; Laterality: Left; DIALYSIS FISTULA CREATION N/A 04/08/2014 Procedure: DIALYSIS CATHETER - INSERTION; Surgeon: Rik Simon MD; Location: [facility] MAIN OR ; Service: Vascular; Laterality: N/A; tunneled catheter LAPAROSCOPIC PERITONEAL DIALYSIS CATHETER INSERTION x2 LAPAROSCOPIC PERITONEAL DIALYSIS CATHETER INSERTION Right 07/2013 current dialysis access MWF dialysis RENAL BIOPSY SUPERFICIALIZATION OF AV FISTULA Left 06/24/2014 Procedure: AV FISTULA - SUPERFICIALIZATION; Surgeon: Rki Simon MD; Location: [facility] MAIN OR; Service: Vascular; Laterality: Left; Prior to Admission medications Medication Sig Start Date End Date Taking? Authorizing Provider benzonatate (TESSALON) 100 MG capsule Take 100 mg by mouth 3 (three) times daily as needed for Cough. Historical Provider cinacalcet (SENSIPAR) 30 MG tablet Take 60 mg by mouth daily. Historical Provider clopidogrel (PLAVIX) 75 MG tablet Take 75 mg by mouth daily. Indications: Treatment to Prev ent a Blood Clot in a Vascular Stent Historical Provider sevelamer (RENVELA) 800 MG tablet Take 800 mg by mouth 3 (three) times daily with meals. Historical Provider Allergies Allergen Reactions Fentanyl Itching Iodinated Diagnostic Agents Itching Pt c/o face itching during fistulagram Morphine Rash Tape [Adhesive Tape] Rash Use silk tape only Social History Social History Marital status: Single Spouse name: N/A Number of children: N/A Years of education: N/A Occupational History Not on file. Social History Main Topics Smoking status: Current Every Day Smoker Packs/day: 0.50 Years: 0.50 Smokeless tobacco: Never Used Alcohol use Yes Comment: occassional Drug use: Yes Types: Marijuana Sexual activity: Not on file Other Topics Concern Not on file Social History Narrative No narrative on file History reviewed. No pertinent family history. Review of Systems Constitutional: Negative for fever. Eyes: Positive for blurred vision. Respiratory: Positive for shortness of breath. Negative for cough. Cardiovascular: Positive for chest pain. Gastrointestinal: Positive for nausea and vomiting. Negative for diarrhea and melena. All other systems reviewed and are negative. Physical Exam Vitals: 05/26/18 1204 05/26/18 1317 05/26/18 1614 BP: (!) 166/104 (!) 146/95 BP Location: Right upper arm Left upper arm Pulse: 104 111 97 Resp: 20 18 16 Temp: 97 F (36.1 C) TempSrc: Oral SpO2: 95% 94% 93% Vital sign interpretation: Hypertensive, tachycardic, otherwise normal. Pulse Oximetry interpretation: Normal. General: Alert, no active distress Eyes: Normal inspection, EOMI, Head: NCAT ENT: Ears normal Nose normal Neck: Normal inspection, Supple, FROM without pain, Cardiovascular: Extremity perfusion appears normal Respiratory: Effort normal, No respiratory distress, decreased breath sounds on the right s kelsey. Abdomen: Abdominal distention. Soft, nontender, No pulsatile abd masses, No guarding or kathy ound Back: Normal inspection, normal movement. Skin: No rash Extremities: No deformities, dialysis fissula left arm. Neuro: Alert, oriented, cranial nerves grossly intact. No gross motor deficits, Psych: Mood normal Lymph: No visible adenopathy Medical Decision Making and Emergency Department Course ED Department Course My DDx includes, but is not limited to: see below. The following medications were given during the course of treatment in the Emergency Depart ment: Medications HYDROmorphone (DILAUDID) injection 0.5 mg (0.5 mg Intravenous Given 05/26/18 1351) bupivacaine-EPINEPHrine (PF) 0.5% -1:581092 injection 10 mL (10 mLs Infiltration Given by O ther 05/26/18 1619) ondansetron (ZOFRAN) injection 4 mg (4 mg Intravenous Given 05/26/18 1300) ondansetron (ZOFRAN) injection 4 mg (4 mg Intravenous Given 05/26/18 1351) MDM: Pleasant 23 y.o. female Patient presents transfer from outside facility, increasing shortness of breath and nausea, she is on hemodialysis Monday, Monday, Monday, she had a chest x-ray which apparently re vealed a large right pleural effusion She was started on IV antibiotics at outside facility, patient did receive IV Reglan with a ssociated akathisia's which resulted her resolved with Benadryl 50 mg IV, Ativan 1 mg IV. General appearance today no active distress, she is able to ambulate from her room #11 over to the restroom adjacent to room #14, with steady gait unassisted, and vigor, chest x-ray i nterpretation by outside facility indicates "worsening consolidation effusion on the right, questionable mild superimposed edema" Lactic acid level was normal, white count was normal, outside facility had consulted with t he patient's [employer] tale[employer] manager Dr. Ibarra who recommended the patient be transferred here to [facility] for further evaluation management, thoracentesis. Blood work from outside facility revealed a WBC 4.9, hemoglobin 11.8, platelet 121, glucose 90, BUN 41, creatinine 8.2, sodium 139, potassium 4.8, chloride 95, CO2 28, anion gap 21, c alcium 9.8, lactic acid 1.6, 12:29 PM Left message for Dr. Villasenor, pulmonology. Will wait for her to call me back. 12:[address] Villasenor, who recommended both paracentesis and thoracentesis. 1:04 PM Pt reevaluation. Patient is stable at this time. Discussed with the patient about the parac entesis and thoracentesis. She has agreed to have both preformed on her. Will obtain written consent form and proceed with the procedures. 1:59 PM Discussed case with Dr. Rizvi, hospitalist, who agrees with the care plan and will evaluate the pt in the ED. Approximately 3:15 PM: Performed paracentesis, removed 4 L, I applied Dermabond to the are a to prevent ascites leak , When patient was laid back to perform the paracentesis, she does develop increased work o f breathing, and slight respiratory distress which improves when she is sitting up. 4:19 PM I received a call from radiology indicating atypical appearance lateral view of the chest x -ray, possible consolidation versus postprocedural abnormalities, I have added on a CT to fu rther evaluate whether there is an underlying infection as well or a loculated effusion. Records Reviewed Old medical records. Nursing notes. Previous ED visits for similar and unrelated complaints. (Using the electronic record system of [facility]) Laboratory Evaluation Results Procedure Component Value Ref Range Date/Time Culture, Body Fluid [[id number]] Collected: 05/26/18 1513 Order Status: Sent Specimen: Other from Ascites Fluid Updated: 05/26/18 1542 Cell count, Body Fluid [[id number]] Collected: 05/26/18 1412 Order Status: Completed Specimen: Body Fluid from Lung, Right Lower Lobe Updated: 1536 FLUID TYPE PLEURAL FLUID COLOR SAMMIE APPEARANCE CLOUDY RBC'S <10,000 /mm3 TOTAL NUCLEATED CELLS 374 /mm3 NEUTROPHILS 22 % LYMPHOCYTES 8 % MONOCYTES/MACROPHAGES 65 % Mesothelial Cells 5 % CELLS COUNTED 100 pH, Body Fluid [[id number]] Collected: 05/26/181411 Order Status: Completed Specimen: Body Fluid from Lung, Right Lower Lobe Updated: 1508 FLUID PH 7.45 Culture, Body Fluid [[id number]] Collected: 05/26/181411 Order Status: Sent Specimen: Body Fluid from Lung, Right Lower Lobe Updated: 05/26/18 1501 Albumin, Body Fluid [[id number]] Collected: 05/26/181411 Order Status: Sent Specimen: Body Fluid from Lung, Right Lower Lobe Updated: 05/26/18 1500 Total Protein, Body Fluid [[id number]] Collected: 05/26/181411 Order Status: Sent Specimen: Body Fluid from Lung, Right Lower Lobe Updated: 05/26/18 1500 Procalcitonin [[id number]] (Abnormal) Collected: 05/26/18 1214 Order Status: Completed Updated: 05/26/18 1330 PROCALCITONIN 0.56 (H) <0.5 ng/mL Cardiac Panel [[id number]] (Abnormal) Collected: 05/26/18 1214 Order Status: Completed Updated: 05/26/18 1312 WBC 5.73 3.80 - 11.00 K/uL RBC 3.32 (L) 3.70 - 5.10 M/uL HGB 12.1 11.3 - 15.5 g/dL HCT 36.1 34.0 - 46.0 % MCV 108.7 (H) 80.0 - 100.0 fl MCH 36.3 (H) 27.0 - 34.0 pg MCHC 33.4 32.0 - 35.5 g/dL RDW SD 59.9 (H) 37 - 53 fl PLT 151 150 - 400 K/uL MPV 10.1 fl DIFF TYPE AUTOMATED NEUTROPHILS 72.41 % LYMPHOCYTES 19.04 % MONOCYTES 6.42 % EOSINOPHILS 1.13 % BASOPHILS 1.00 % NEUTROPHILS ABS 4.15 1.90 - 7.40 K/uL LYMPHOCYTES ABS 1.09 1.00 - 3.90 K/uL MONOCYTES ABS 0.37 0.00 - 0.80 K/uL EOSINOPHILS ABS 0.06 0.00 - 0.50 K/uL BASOPHILS ABS 0.06 0.00 - 0.10 K/uL MORPHOLOGY 2+ Platelet Estimate ADEQUATE SODIUM 140 135 - 145 mmol/L POTASSIUM 4.6 3.5 - 4.9 mmol/L CHLORIDE 99 99 - 109 mmol/L CO2 27 23 - 32 mmol/L ANION GAP AGAP 19 5 - 20 mmol/L GLUCOSE 85 65 - 99 mg/dL BUN 41 (H) 8 - 25 mg/dL CREATININE 7.89 (H) 0.50 - 1.00 mg/dL BUN/CREAT 5 CALCIUM 9.6 8.5 - 10.5 mg/dL TOTAL PROTEIN 7.2 6.3 - 8.2 g/dL Albumin 4.3 3.6 - 5.0 g/dL GLOBULIN 2.9 1.3 - 4.9 g/dL A/G 1.5 1.0 - 2.4 TBIL 1.1 0.1 - 1.5 mg/dL ALK PHOS 120 (H) 35 - 115 U/L AST 82 (H) 10 - 45 U/L ALT 64 10 - 65 U/L EGFR 6 (L) >60 mL/min/1.73m2 CPK 291 (H) 30 - 240 U/L INR 1.6 APTT 29 23 - 32 seconds MMB 7.8 (H) 0.5 - 3.6 ng/mL CK-MB Index 2.7 Brain natriuretic peptide [[id number]] (Abnormal) Collected: 05/26/18 1214 Order Status: Completed Updated: 05/26/18 1254 BRAIN NATRIURETIC PEPTIDE 1,728.24 (H) 0 - 100 pg/mL I personally reviewed the lab results and they have been posted to the chart at the time of the patients disposition. Radiology and EKG Evaluation Imaging Results XR chest PA and lateral (Final result) Result time 05/26/18 16:22:23 Final result by Florian Keane MD (05/26/18 16:22:23) Impression: 1. Status post thoracentesis with reported approximately 1 L of fluid removed. There is residual pleural effusion which is similar to slightly decreased since the pre thoracentesis study. 2. Wedge like opacity at the superior segment right upper lobe with more lucent area at the right lung base as seen on the lateral view. This suggests airspace consolidation potentially infectious in etiology. 3. No pneumothorax. 4. Streaky left lower lobe opacity most likely representing atelectasis. Signed by: MD Lakhwinder, Florian Sign Date/Time: 05/26/2018 4:19 PM Narrative: CHEST TWO VIEWS CLINICAL INFORMATION: Post thoracentesis. COMPARISON: XR CHEST 1 VIEW (05/26/2018); XR CHEST 2 Views (05/25/2018); FINDINGS: Large right pleural effusion does not appear significantly changed since most recent comparison study. As seen on the lateral view there is wedge like density likely involving superior segment right lower lobe with lucency more inferiorly at the right lung base. Also density potentially representing pleural fluid or consolidation at the right middle lobe over the heart. No pneumothorax. Streaky opacity left lower lobe potentially representing atelectasis. Possible trace left pleural effusion. Cardiac and mediastinal silhouettes within normal limits of size. No focal bony lesions. ED Diagnoses Final diagnoses Pleural effusion on right Other ascites Acute respiratory distress Disposition: ED Disposition ED Disposition Condition Comment Admit/Observation Bed request special needs: dialysis Diagnosis?: Right lung collapse, pulmonary effusion, ascites Follow-up Information None Discharge Medications: New Prescriptions No new medications This document has been prepared with a voice recognition system. The possibility of "sound alike" polisher implant errors, and additions or deletions may occur. If there is any questio n, with respect to clarity of the message being conveyed, please contact me directly for cla rification. Any physical exam findings mentioned in the MDM take precedence over findings listed in phy sical exam section. Aneudy Glass MD, MPH Procedures Additional Documentation Paracentesis Date/Time: 05/26/2018 1:23 PM Performed by: ANEUDY GLASS Authorized by: ANEUDY GLASS Consent: Consent obtained: Verbal and written Consent given by: Patient Risks discussed: Bleeding, bowel perforation, infection and pain [place] protocol: Imaging studies available: yes Patient identity confirmed: Verbally with patient Pre-procedure details: Procedure purpose: Diagnostic Preparation: Patient was prepped and draped in usual sterile fashion Anesthesia: Anesthesia method: Local infiltration Local anesthetic: Bupivacaine 0.5% WITH epi Procedure details: Needle gauge: 18 Ultrasound guidance: yes Puncture site: Midline infraumbilical Fluid removed amount: 4 liters Fluid appearance: Yellow Dressing: Adhesive bandage (Dermabond) Post-procedure details: Patient tolerance of procedure: Tolerated well, no immediate complications Thoracentesis Date/Time: 05/26/2018 1:24 PM Performed by: ANEUDY GLASS Authorized by: ANEUDY GLASS Consent: Consent obtained: Written and verbal Consent given by: Patient Risks discussed: Bleeding, infection, pain and pneumothorax Alternatives discussed: Delayed treatment and no treatment Anesthesia: Anesthesia method: Local infiltration Local anesthetic: Bupivacaine 0.5% WITH epi Procedure details: Preparation: Patient was prepped and draped in usual sterile fashion Patient position: Sitting Location: R midscapular line Intercostal space: 4th Puncture method: [id number] catheter Ultrasound guidance: yes Catheter size: 8 Fr Number of attempts: 1 Drainage characteristics: Clear Post-procedure details: Chest x-ray performed: yes Chest x-ray findings: Pleural effusion unchanged Patient tolerance of procedure: Tolerated well, no immediate complications Attending Provider Note: IAneudy MD personally performed the services describe d in this documentation, as scribed by Nereida Bustos in my presence, and it is both accurate a nd complete. Chart Reviewed and Completed: 05/26/2018 4:23 PM Scribe: Héctor Christopher, scribing for and in the presence of Aneudy Glass MD. Signed by: Héctor Esquivel 05/26/2018 4:23 PM Aneudy Glass MD 05/26/18 1623 onversion Transac tion, Provider Unknown - 05/26/2018 11:57 AM PDTFormatting of this note might be different f rom the original. ED Notes by Maria M Verdugo RN at 05/26/18 1923 Author: Maria M Verdugo RN Service: (none) Author Type: Registered Nurse Filed: 05/26/181156 Date of Service: 05/26/181156 Status: Signed Faculty Research Physician: Maria M Verdugo RN (Registered Nurse) Bed: 11 Expected date: Expected time: Means of arrival: Comments: [facility] Maria M Verdugo RN 05/26/18 6025 onver arturo Transaction, Provider Unknown - 05/26/2018 10:40 AM PDT ED Notes by Maria M Verdugo RN at 05/26/18 1040 Author: Maria M Verdugo RN Service: (none) Author Type: Registered Nurse Filed: 05/26/18 1052 Date of Service: 05/26/18 1040 Status: Addendum Faculty Research Physician: Maria M Verdugo RN (Registered Nurse) Related Notes: Original Note by Maria M Verdugo RN (Registered Nurse) filed at 05/26/18 1 0[address] Report [address] [facility] ER. Patient is a 23yo female that presented to the ER with SOB and nausea. She is a hemodialysi s pt, Monday, Monday, and Monday's. She has a right sided large pleural effusion. GCS of 15. HE: 103, BP: 163/109, 98% on 2L NC. 20g R AC Received 1g rocephin, and reglan. Reglan made her very anxious, received 50mg benadryl, and 1mg Ativan. Maria M Verdugo RN 05/26/18 1052 docume nted in this encounter Miscellaneous Notes Plan of Care - Conversion Transaction, Provider Unknown - 06/01/2018 10:30 AM PDT Plan of Care by Autumn Moy RN at 06/01/18 1030 Author: Autumn Moy RN Service: (none) Author Type: Registered Nurse Filed: 06/01/18 1030 Date of Service: 06/01/18 1030 Status: Signed Faculty Research Physician: Autumn Moy RN (Registered Nurse) Problem: Pain Goal: Patient's pain/discomfort is manageable Assess and monitor patient's pain using appropriate pain scale. Collaborate with interdisci plinary team and initiate plan and interventions as ordered. Re-assess patient's pain level approximately 1-2 hours after pain management intervention. Premedicate as needed. Outcome: Progressing Pt states pain is effectively managed with current prn pain medication Problem: Safety Goal: Patient will be injury [...] and non-skid footwear provided. Outcome: Progressing Pt remains free from falls and injuries at this time, safety measures in place, mother at b edside, hourly rounding lan o f Care - Conversion Transaction, Provider Unknown - 06/01/2018 12:35 AM PDTFormatting of thi s note might be different from the original. Plan of Care by Aury Eldridge RN at 06/01/1834 Author: Aury Eldridge RN Service: (none) Author Type: Registered Nurse Filed: 06/01/1834 Date of Service: 06/01/1834 Status: Signed Faculty Research Physician: Aury Eldridge RN (Registered Nurse) Problem: Pain Goal: Patient's pain/discomfort is manageable Assess and monitor patient's pain using appropriate pain scale. Collaborate with interdisci plinary team and initiate plan and interventions as ordered. Re-assess patient's pain level approximately 1-2 hours after pain management intervention. Premedicate as needed. Outcome: Progressing Discussed pain scale with patient, rating pain 6/10. Patient given medication and asleep on reassessment. WCTM lan o f Care - Conversion Transaction, Provider Unknown - 05/31/2018 3:50 PM PDTFormatting of thi s note might be different from the original. Plan of Care by Romelia Cooley RN at 05/31/18 456 Author: Romelia Cooley RN Service: (none) Author Type: Registered Nurse Filed: 05/31/18 347 Date of Service: 05/31/181549 Status: Signed Faculty Research Physician: Romelia Cooley RN (Registered Nurse) Problem: Pain Goal: Patient's pain/discomfort is manageable Assess and monitor patient's pain using appropriate pain scale. Collaborate with interdisci plinary team and initiate plan and interventions as ordered. Re-assess patient's pain level approximately 1-2 hours after pain management intervention. Premedicate as needed. Outcome: Progressing 5mg oxycodone X2 for headache this shift. Phenergan X1 for nausea. Will continue to monitor . lan o f Care - Conversion Transaction, Provider Unknown - 05/30/2018 10:09 PM PDTFormatting of thi s note might be different from the original. Plan of Care by Nandini Robertson RN at 05/30/182208 Author: Nandini Robertson RN Service: (none) Author Type: Registered Nurse Filed: 05/30/182208 Date of Service: 05/30/182208 Status: Signed Faculty Research Physician: Nandini Robertson RN (Registered Nurse) Problem: Safety Goal: Patient [...] policy, and non-skid footwear provided. Outcome: Progressing Continue all safety precautions. lan o f Care - Conversion Transaction, Provider Unknown - 05/30/2018 5:26 PM PDTFormatting of thi s note might be different from the original. Plan of Care by Kyra Amador RN at 05/30/181725 Author: Kyra Amador RN Service: (none) Author Type: Registered Nurse Filed: 05/30/181725 Date of Service: 05/30/181725 Status: Signed Faculty Research Physician: Kyra Amador RN (Registered Nurse) Problem: Pain Goal: Patient's pain/discomfort is manageable Assess and monitor patient's pain using appropriate pain scale. Collaborate with interdisci plinary team and initiate plan and interventions as ordered. Re-assess patient's pain level approximately 1-2 hours after pain management intervention. Premedicate as needed. Outcome: Progressing Pt is able to discuss appropriate interventions of pain medication interventions with nursi staff. Problem: Safety Goal: Patient will be injury [...] and non-skid footwear provided. Outcome: Progressing Pt is safely independent in the room mona calls nursing for any assistance needed. lan o f Care - Conversion Transaction, Provider Unknown - 05/29/2018 7:59 PM PDTFormatting of thi s note might be different from the original. Plan of Care by Nandini Robertson RN at 05/29/181958 Author: Nandini Robertson RN Service: (none) Author Type: Registered Nurse Filed: 05/29/181958 Date of Service: 05/29/181958 Status: Signed Faculty Research Physician: Nandini Robertson RN (Registered Nurse) Problem: Safety Goal: Patient [...] policy, and non-skid footwear provided. Outcome: Progressing All safety precautions are in place. Pt is alert and oriented x 4. Call light in reach, bed side table in reach, and room is free of clutter. Bed is low and locked. lan o f Care - Conversion Transaction, Provider Unknown - 05/29/2018 11:40 AM PDTFormatting of thi s note might be different from the original. Plan of Care by lFaco Can RN at 05/29/181139 Author: Flaco Can RN Service: (none) Author Type: Registered Nurse Filed: 05/29/181139 Date of Service: 05/29/181139 Status: Signed Faculty Research Physician: Flaco Can RN (Registered Nurse) Problem: Safety Goal: Patient [...] and non-skid footwear provided. Outcome: Progressing Pt has had no injuries. Bed is in a locked and low position. Call light and personal belong ings are within reach. A safe environment is being maintained. Problem: Daily Care Goal: Daily care needs are met Assess and monitor ability to perform self care and identify potential discharge needs. Outcome: Progressing Pt is being assisted with ADLs with independence being encouraged lan o f Care - Conversion Transaction, Provider Unknown - 05/28/2018 9:20 PM PDTFormatting of thi s note might be different from the original. Plan of Care by Vernell Weston RN at 05/28/182119 Author: Vernell Weston RN Service: (none) Author Type: Registered Nurse Filed: 05/28/182119 Date of Service: 05/28/182119 Status: Signed Faculty Research Physician: Vernell Weston RN (Registered Nurse) Problem: Pain Goal: Patient's pain/discomfort is manageable Assess and monitor patient's pain using appropriate pain scale. Collaborate with interdisci plinary team and initiate plan and interventions as ordered. Re-assess patient's pain level approximately 1-2 hours after pain management intervention. Premedicate as needed. Outcome: Progressing Assessing patients pain frequently. Patient pain goal is 2/10. Administering pain medicatio n as needed per orders. Reassessing every 1-2 hours lan o f Care - Conversion Transaction, Provider Unknown - 05/28/2018 7:31 PM PDTFormatting of thi s note might be different from the original. Plan of Care by Saundra Hartley RN at 05/28/181930 Author: Saundra Hartley RN Service: (none) Author Type: Registered Nurse Filed: 05/28/181930 Date of Service: 05/28/181930 Status: Signed Faculty Research Physician: Saundra Hartley RN (Registered Nurse) Problem: Safety Goal: Patient [...] and non-skid footwear provided. Outcome: Progressing Pt has been free of injury/fall during shift. Pt ambulates well in room. Pt bed in lowest p osition, wheels locked, side rails up x2. Call light within reach. lan o f Care - Conversion Transaction, Provider Unknown - 05/27/2018 10:33 PM PDTFormatting of thi s note might be different from the original. Plan of Care by Timothy Butler RN at 05/27/182232 Author: Timothy Butler RN Service: (none) Author Type: Registered Nurse Filed: 05/27/182232 Date of Service: 05/27/182232 Status: Signed Faculty Research Physician: Timothy Butler RN (Registered Nurse) Problem: Pain Goal: Patient's pain/discomfort is manageable Assess and monitor patient's pain using appropriate pain scale. Collaborate with interdisci plinary team and initiate plan and interventions as ordered. Re-assess patient's pain level approximately 1-2 hours after pain management intervention. Premedicate as needed. Outcome: Progressing Assessed and monitored pt pain on 1-10 pain scale. Pain meds given per MD order. Offering non pharmacological pain management interventions. lan o f Care - Conversion Transaction, Provider Unknown - 05/27/2018 5:58 PM PDTFormatting of thi s note might be different from the original. Plan of Care by Saundra Hartley RN at 05/27/181757 Author: Saundra Hartley RN Service: (none) Author Type: Registered Nurse Filed: 05/27/181757 Date of Service: 05/27/181757 Status: Signed Faculty Research Physician: Saundra Hartley RN (Registered Nurse) Problem: Safety Goal: Patient [...] and non-skid footwear provided. Outcome: Progressing Pt has been free of injury/fall during shift. Pt calls appropriately for assistance. Pt bed in lowest position, wheels locked, side rails up x2. Pt call light within reach and non ski d socks on. Hourly rounding performed to assess for pt needs. lan o f Care - Conversion Transaction, Provider Unknown - 05/26/2018 8:04 PM PDTFormatting of rosa s note might be different from the original. Plan of Care by Vernell Weston RN at 05/26/182003 Author: Vernell Weston RN Service: (none) Author Type: Registered Nurse Filed: 05/26/182003 Date of Service: 05/26/182003 Status: Signed Faculty Research Physician: Vernell Weston RN (Registered Nurse) Problem: Pain Goal: Patient's pain/discomfort is manageable Assess and monitor patient's pain using appropriate pain scale. Collaborate with interdisci plinary team and initiate plan and interventions as ordered. Re-assess patient's pain level approximately 1-2 hours after pain management intervention. Premedicate as needed. Outcome: Progressing Assessing patients pain frequently. Goal for pain rating is 3/10. Administering pain medica tions as needed per orders. Reassessing every 1-2 hours lan o f Care - Conversion Transaction, Provider Unknown - 05/26/2018 6:56 PM PDTFormatting of thi s note might be different from the original. Plan of Care by Saundra Hartley RN at 05/26/181855 Author: Saundra Hartley RN Service: (none) Author Type: Registered Nurse Filed: 05/26/181855 Date of Service: 05/26/181855 Status: Signed Faculty Research Physician: Saundra Hartley RN (Registered Nurse) Problem: Pain Goal: Patient's pain/discomfort is manageable Assess and monitor patient's pain using appropriate pain scale. Collaborate with interdisci plinary team and initiate plan and interventions as ordered. Re-assess patient's pain level approximately 1-2 hours after pain management intervention. Premedicate as needed. Outcome: Progressing Pt complained of some back pain, PRN dilaudid given x1 with relief. Pt educated on pain int erventions available. Pt encouraged to monitor and report own pain accordingly. Will continu e to monitor. iscel laneous - Conversion Transaction, Provider Unknown - 05/26/2018 4:56 PM PDTFormatting of th is note might be different from the original. Medication History by Irish Sierra RPH at 05/26/181655 Author: Irish Sierra RPH Service: Pharmacy Author Type: Pharmacist Filed: 05/26/181655 Date of Service: 05/26/181655 Status: Signed Faculty Research Physician: Irish Sierra RPH (Pharmacist) Rx Admission Medication History Note I have reviewed the medication history for appropriate doses obtained by: Prop Sawyer . After reviewing the home medication list : I agree with the home medication list. - Removed Sensipar as patient received Parsabiv at dialysis as alternative therapy - Removed Renvela as patient is on Velphoro instead - Agree with addition of losartan and citalopram Please Review and Order Home Medications as necessary. Thanks Irish Sierra, KatieD, [facility] >> Nicole Victoria RPH-S 05/26/2018 16:43 Rx Medication History Probation Worker Note Patients Preferred Pharmacy has been updated in EPIC: yes [id number] - [place], [place] - [address] [place] [place] [address] Patients Allergies have been updated and marked as reviewed: yes Fentanyl; Iodinated diagnostic agents; Morphine; and Tape [adhesive tape] The following changes were made to the allergy list (if any): N/A Medication History provided by: Patient and Medication Bottle Follow-up Issues: None - Pending Pharmacist Review High Risk Medications (dual source verification needed): Anticoagulants Changes made to the medication list include: Added: Citalopram Parsabiv Losartan Velphoro [place] Zofran Doxycycline Flagged: Cinacalcet- patient says she receives Parsabiv at dialysis instead Renvela- patient says she takes Velphoro instead Reliability of information obtained: RELIABLE Additional Comments: N/A Medication history has been completed: *Awaiting Pharmacist Final Review* Nicole Victoria, [facility] 05/26/2018 4:39 PM docume nted in this encounter Plan of Treatment Not on filedocumented as of this encounter Procedures + +--------+ + + + | Procedure Name | Priori | Date/Time | Associated Diagnosis | Comments | | | ty | | | | + +--------+ + + + | EXTERNAL LAB: LAKHWINDER | Routin | 06/01/2018 | | Results for this | | | e | 4:43 AM | | [...] | EXTERNAL LAB: LAKHWINDER | Routin | 05/31/2018 | | Results for this | | | e | 5:04 AM | | [...] | EXTERNAL LAB: CBC | Routin | 05/30/2018 | | Results for this | | | e | 4:18 AM | | [...] XR CHEST 1 VIEW | Routin | 05/29/2018 | | Results for this | | | e | 1:38 PM | | procedure are [...] + | US GUIDED | Routin | 05/29/2018 | | Results for this | | THORACENTESIS WO | e | 12:31 PM | | procedure are in the | | CHEST TUBE | | PDT | | results section. | + +--------+ + + + | PTT | Routin | 05/29/2018 | | Results for this | | | e | 8:52 AM | | procedure are in the | | | | PDT | | results section. | + +--------+ + + + | PROTIME INR | Routin | 05/29/2018 | | Results for this | | | e | 8:52 AM | | procedure are in the | | | | PDT | | results section. | + +--------+ + + + | EXTERNAL LAB: CBC | Routin | 05/29/2018 | | Results [...] + +--------+ + + + | HIV 1 AND 2 ANTIBODY | Routin | 05/28/2018 | | Results for this | | DIFFERENTIATION | e | 12:36 PM | | procedure are in the | | | | PDT | | results section. | + +--------+ + + + | HEPATITIS PANEL, | Routin | 05/28/2018 | | Results for this | | ACUTE | e | 12:36 PM | | procedure are in the | | | | PDT | | results section. | + +--------+ + + + | RENAL FUNCTION PANEL | Routin | 05/28/2018 | | Results for this | | | e | 12:09 PM | | procedure are in the | | | | PDT | | results section. | + +--------+ + + + | ECG 12 LEAD | Routin | 05/28/2018 | | Results for this | | | e | 11:58 AM | | procedure are in the | | | | PDT | | results section. | + +--------+ + + + | EXTERNAL LAB: CBC | Routin | 05/28/2018 | | Results for this | | | e | 9:23 AM | | procedure are in the | | | | PDT | | results section. | + +--------+ + + + | TROPONIN I | Routin | 05/28/2018 | | Results for this | | | e | 9:23 AM | | procedure are in the | | | | PDT | | results section. | + +--------+ + + + | SEDIMENTATION RATE, | Routin | 05/28/2018 | | Results for this | | AUTOMATED | e | 9:23 AM | | procedure are in the | | | | PDT | | results section. | + +--------+ + + + | C-REACTIVE PROTEIN | Routin | 05/28/2018 | | Results for this | | | e | 9:23 AM | | procedure are in the | | | | PDT | | results section. | + +--------+ + + + | , SERUM, | Routin | 05/28/2018 | | Results for this | | QUAL | e | 9:23 AM | | procedure are in the | | | | PDT | | results section. | + +--------+ + + + | TSH | Routin | 05/28/2018 | | Results for this | | | e | 9:23 AM | | [...] | + +--------+ + + + | MEDICAL CYTOLOGY | Routin | 05/28/2018 | | Results for this | | | e | 8:00 AM | | procedure are in the | | | | PDT | | results section. | + +--------+ + + + | GRAM STAIN, REFLEX | Timed | 05/27/2018 | | Results for this | | SPUTUM CULTURE | | 8:15 PM | | procedure are in the | | | | PDT | | results section. | + +--------+ + + + | HEPATITIS PANEL, | Routin | 05/27/2018 | | Results for this | | CHRONIC | e | 5:58 PM | | procedure are in the | | | | PDT | | results section. | + +--------+ + + + | ECHO COMPLETE | Routin | 05/27/2018 | | Results for this | | | e | 12:01 PM | | procedure are in the | | | | PDT | | results section. | + +--------+ + + + | XR CHEST 2 VIEWS | Routin | 05/27/2018 | | Results for this | | | e | 11:02 AM | | procedure are in the | | | | PDT | | results section. | + +--------+ + + + | EXTERNAL LAB: CBC | Routin | 05/27/2018 | | Results for this | | | e | 4:25 AM | | procedure are in the | | | | PDT | | results section. | + +--------+ + + + | PHOSPHORUS | Routin | 05/27/2018 | | Results for this | | | e | 4:25 AM | | procedure are in the | | | | PDT | | results section. | + +--------+ + + + | B TYPE NATRIURETIC | Routin | 05/27/2018 | | Results for this | | PEPTIDE | e | 4:25 AM | | procedure are in the | | | | PDT | | results section. | + +--------+ + + + | MAGNESIUM | Routin | 05/27/2018 | | Results for this | | | e | 4:25 AM | | procedure are in the | | | | PDT | | results section. | + +--------+ + + + | BASIC METABOLIC | Routin | 05/27/2018 | | Results for this | | PANEL | e | 4:25 AM | | procedure are in the | | | | PDT | | results section. | + +--------+ + + + | HISTORICAL | Timed | 05/26/2018 | | Results for this | | MICROBIOLOGY RESULT | | 6:06 PM | | procedure are in the | | | | PDT | | results section. | + +--------+ + + + | MRSA NAAT | Timed | 05/26/2018 | | Results for this | | | | 6:06 PM | | procedure are in the | | | | PDT | | results section. | + +--------+ + + + | PROCALCITONIN, SERUM | Routin | 05/26/2018 | | Results for this | | | e | 5:27 PM | | procedure are in the | | | | PDT | | results section. | + +--------+ + + + | CT CHEST WO CONTRAST | Routin | 05/26/2018 | | Results for this | | | e | 4:41 PM | | procedure are in the | | | | PDT | | results section. | + +--------+ + + + | XR CHEST 2 VIEWS | Routin | 05/26/2018 | | Results for this | | | e | 3:59 PM | | procedure are in the | | | | PDT | | results section. | + +--------+ + + + | CULTURE, BODY FLUID, | STAT | 05/26/2018 | | Results for this | | STERILE, SMEAR, | | 3:13 PM | | procedure are in the | | WITH ANAEROBES | | PDT | | results section. | + +--------+ + + + | EXTERNAL LAB: | STAT | 05/26/2018 | | Results for this | | ALBUMIN | | 2:12 PM | | procedure are in the | | | | PDT | | results section. | + +--------+ + + + | EXTERNAL LAB: | STAT | 05/26/2018 | | Results for this | | PROTEIN, TOTAL | | 2:12 PM | | procedure are in the | | | | PDT | | results section. | + +--------+ + + + | PATHOLOGY CONSULT | Routin | 05/26/2018 | | Results for this | | REQUEST | e | 2:12 PM | | procedure are in the | | | | PDT | | results section. | + +--------+ + + + | CELL COUNT, BODY | STAT | 05/26/2018 | | Results for this | | FLUID | | 2:12 PM | | procedure are in the | | | | PDT | | results section. | + +--------+ + + + | CULTURE, BODY FLUID, | STAT | 05/26/2018 | | Results for this | | STERILE, SMEAR, | | 2:12 PM | | procedure [...] | HISTORICAL LAB PANEL | Routin | 05/26/2018 | | Results for this | | RESULT | e | 12:14 PM | | procedure are in the | | | | PDT | | results section. | + +--------+ + + + | PROCALCITONIN, SERUM | Routin | 05/26/2018 | | Results for this | | | e | 12:14 PM | | procedure are in the | | | | PDT | | results section. | + +--------+ + + + | B TYPE NATRIURETIC | Routin | 05/26/2018 | | Results for this | | PEPTIDE | e | 12:14 PM | | procedure are in the | | | | PDT | | results section. | + +--------+ + + + | XR CHEST 1 VIEW | Routin | 05/26/2018 | | Results for this | | | e | 9:55 AM | | procedure are in the | | | | PDT | | results section. | + +--------+ + + + documented in this encounter Results External Lab: [facility] (06/01/2018 4:43 AM PDT) + + +---- + + + | Component | Value | Ref Range | Performed | Pathologist | | | | | At | Signature | + + +---- + + + | WBC | 5.40 | 3.8 0 - 11.00 | EXTERNAL | | | | | K/u L | LAB | | + + +---- + + + | Non- | 2.95 (L) | 3.7 0 - 5.10 | [...] +---- + + + | Hematocrit, | 32.4 (L) | 34. 0 - 46.0 % | EXTERNAL | | | POC | | | LAB | | + + +---- + + + | MCV | 109.7 (H) | 80. 0 - 100.0 fl [...] +---- + + + | RDW-CV | 56.9 (H) | 37 - 53 fl | EXTERNAL | | | | | | LAB | | + + +---- + + + | Platelet | 119 (L) | 150 - 400 K/uL | EXTERNAL | | | Count | | | LAB | | | Plasma | | | | | + + +---- + + + | MPV | 9.6 | fl | EXTERNAL | | | | | | LAB | | + + +---- + + + | Differentia | AUTOMATED | | EXTERNAL | | | l Type | | | LAB | | + + +---- + + + | % Segmented | 54.51 | % | EXTERNAL | | | | | | LAB | | | Neutrophils | | | | | + + +---- + + + | % | 21.23 | % | EXTERNAL | | | Lymphocytes | | | LAB | | + + +---- + + + | % Monocytes | 8.93 | % | EXTERNAL | | | | | | LAB | | + + +---- + + + | % | 14.69 | % | EXTERNAL | | | Eosinophils | | | LAB | | + + +---- + + + | % Basophils | 0.64 | % | EXTERNAL | | | | | | LAB | | + + +---- + + + | Absolute | 2.94 | 1.9 0 - 7.40 | EXTERNAL | | | Segmented | | K/u L | LAB | | | Neutrophils | | | | | + + +---- + + + | Absolute | 1.15 | 1.0 0 - 3.90 | EXTERNAL | | | Lymphocytes | | K/u L | LAB | | + + +---- + + + | Absolute | 0.48 | 0.0 0 - 0.80 | EXTERNAL | | | Monocytes | | K/u L | LAB | | + + +---- + + + | Absolute | 0.79 (H) | 0.0 0 - 0.50 | EXTERNAL | | | Eosinophils | | K/u L | LAB | | + + +---- + + + | Absolute | 0.04 | 0.0 0 - 0.10 | EXTERNAL | | | Basophils | | K/u L | LAB | | + + +---- + + + | RBC | 2+Comment: | | EXTERNAL | | | Morphology | MACRO1+ANISONORMAL PLT | | LAB | | | | MORPHTesting performed | | | | | | at [facility], [address] | | | | | [address], | | | | | | [place] [address] | | | | | |Testing performed at [facility], [address] [place] [address] | | | | | | | [...] + +---------+ + + Comprehensive Metabolic Panel (06/01/2018 4:43 AM PDT) + + + + + [...] | 4.7 | 3.5 - 4.9 | EXTERNAL | | | | | mmol/L | LAB | | + + + + + + | Cl | 101 | 99 - 109 mmol/L | EXTERNAL | | | | | | LAB | | + + + + + + | CO2 | 33 (H) | 23 - 32 mmol/L | EXTERNAL | | | | | | LAB | | + + + + + + | Anion Gap | 10 | 5 - 20 mmol/L | EXTERNAL | | | | | | LAB | | + + + + + + | Glucose, | 82 | 65 - 99 mg/dL | EXTERNAL [...] + + + + | Globulin | 3.5 | 1.3 - 4.9 g/dL | EXTERNAL [...] + + + + | ALP, | 138 (H) | 35 - 115 [...] (H) | 10 - 65 U/L | EXTERNAL [...] | | | | | performed at [facility], [address] | | | | | | [address], | | | | | | [place] [address] | | | | + + + [...] + +---------+ + + External Lab: CBC (05/31/2018 5:04 AM PDT) + + +---- + + + | Component | Value | Ref Range | Performed | Pathologist | | | | | At | Signature | + + +---- + + + | WBC | 4.57 | 3.8 0 - 11.00 | EXTERNAL | | | | | K/u L | LAB | | + + +---- + + + | Non- | 3.00 (L) | 3.7 0 - 5.10 | EXTERNAL | | | Red Blood | | M/u L | LAB | | | Cells | | | | | | Counted | | | | | + + +---- + + + | Hemoglobin | 10.9 (L) | 11. 3 - 15.5 | EXTERNAL | | | | | g/d L | LAB | | + + +---- + + + | Hematocrit, | 32.9 (L) | 34. 0 - 46.0 % | EXTERNAL | | | POC | | | LAB | | + + +---- + + + | MCV | 109.6 (H) | 80. 0 - 100.0 fl | EXTERNAL | | | | | | LAB | | + + +---- + + + | MCH | 36.4 (H) | 27. 0 - 34.0 pg | EXTERNAL | | | | | | LAB | | + + +---- + + + | MCHC | 33.2 | 32. 0 - 35.5 | EXTERNAL | | | | | g/d L | LAB | | + + +---- + + + | RDW-CV | 56.4 (H) | 37 - 53 fl | EXTERNAL | | | | | | LAB | | + + +---- + + + | Platelet | 107 (L) | 150 - 400 K/uL | EXTERNAL | | | Count | | | LAB | | | Plasma | | | | | + + +---- + + + | MPV | 9.3 | fl | EXTERNAL | | | | | | LAB | | + + +---- + + + | Differentia | AUTOMATED | | EXTERNAL | | | l Type | | | LAB | | + + +---- + + + | % Segmented | 55.65 | % | EXTERNAL | | | | | | LAB | | | Neutrophils | | | | | + + +---- + + + | % | 19.92 | % | EXTERNAL | | | Lymphocytes | | | LAB | | + + +---- + + + | % Monocytes | 7.18 | % | EXTERNAL | | | | | | LAB | | + + +---- + + + | % | 16.73 | % | EXTERNAL | | | Eosinophils | | | LAB | | + + +---- + + + | % Basophils | 0.52 | % | EXTERNAL | | | | | | LAB | | + + +---- + + + | Absolute | 2.54 | 1.9 0 - 7.40 | EXTERNAL | | | Segmented | | K/u L | LAB | | | Neutrophils | | | | | + + +---- + + + | Absolute | 0.91 (L) | 1.0 0 - 3.90 | EXTERNAL | | | Lymphocytes | | K/u L | LAB | | + + +---- + + + | Absolute | 0.33 | 0.0 0 - 0.80 | EXTERNAL | | | Monocytes | | K/u L | LAB | | + + +---- + + + | Absolute | 0.77 (H) | 0.0 0 - 0.50 | EXTERNAL | | | Eosinophils | | K/u L | LAB | | + + +---- + + + | Absolute | 0.02 | 0.0 0 - 0.10 | EXTERNAL | | | Basophils | | K/u L | LAB | | + + +---- + + + | RBC | 2+Comment: | | EXTERNAL | | | Morphology | MACRO1+ANISONORMAL PLT | | LAB | | | | MORPHTesting performed | | | | | | at [facility], [address] | | | | | | [facility], | | | | | | [place] [address] | | | | | |Testing performed at [facility], [address] [place] [address] | | | | | | | [...] + +---------+ + + Comprehensive Metabolic Panel (05/31/2018 5:04 AM PDT) + + + + + [...] | 4.3 | 3.5 - 4.9 | EXTERNAL | | | | | mmol/L | LAB | | + + + + + + | Cl | 99 | 99 - 109 mmol/L | EXTERNAL | | | | | | LAB | | + + + + + + | CO2 | 32 | 23 - 32 mmol/L | EXTERNAL | | | | | | LAB | | + + + + + + | Anion Gap | 12 | 5 - 20 mmol/L | EXTERNAL | | | | | | LAB | | + + + + + + | Glucose, | 81 | 65 - 99 mg/dL | EXTERNAL | | | Fasting | | | LAB | | + + + + + + | BUN | 19 | 8 - 25 mg/dL | EXTERNAL | | | | | | LAB | | + + + + + + | Creatinine | 5.6 (H) | 0.50 - 1.00 | EXTERNAL | | | | | mg/dL | LAB | | + + + + + + | BUN/Creatin | 3 | | EXTERNAL | | | ine Ratio | | | LAB | | + + + + + + | Calcium | 9.9 | 8.5 - 10.5 | EXTERNAL | | | | | mg/dL | LAB | | + + + + + + | Protein, | 6.6 | 6.3 - 8.2 g/dL | EXTERNAL | | | Total | | | LAB | | + + + + + + | Albumin | 3.0 (L) | 3.6 - 5.0 g/dL | EXTERNAL | | | | | | LAB | | + + + + + + | Globulin | 3.6 | 1.3 - 4.9 g/dL | EXTERNAL | | | | | | LAB | | + + + + + + | A/G Ratio | 0.8 (L) | 1.0 - 2.4 | EXTERNAL | | | | | | LAB | | + + + + + + | Bilirubin | 0.9 | 0.1 - 1.5 mg/dL | EXTERNAL | | | Total | | | LAB | | + + + + + + | ALP, | 133 (H) | 35 - 115 [...] (H) | 10 - 65 U/L | EXTERNAL [...] | | | | | | MDRD IDAR traceable | | | | | | equation.Testing | | | | | | performed at [facility], [address] | | | | | | [facility], | | | | | | [place] [address] | | | | + + + [...] + +---------+ + + External Lab: [facility] (05/30/2018 4:18 AM PDT) + + +---- + + + | Component | Value | Ref Range | Performed | Pathologist | | | | | At | Signature | + + +---- + + + | WBC | 4.80 | 3.8 0 - 11.00 | EXTERNAL | | | | | K/u L | LAB | | + + +---- + + + | Non- | 2.91 (L) | 3.7 0 - 5.10 | [...] +---- + + + | Hematocrit, | 31.7 (L) | 34. 0 - 46.0 % | EXTERNAL | | | POC | | | LAB | | + + +---- + + + | MCV | 108.9 (H) | 80. 0 - 100.0 fl | EXTERNAL | | | | | | LAB | | + + +---- + + + | MCH | 36.8 (H) | 27. 0 - 34.0 pg | EXTERNAL | | | | | | LAB | | + + +---- + + + | MCHC | 33.8 | 32. 0 - 35.5 | EXTERNAL | | | | | g/d L | LAB | | + + +---- + + + | RDW-CV | 56.0 (H) | 37 - 53 fl | EXTERNAL | | | | | | LAB | | + + +---- + + + | Platelet | 118 (L) | 150 - 400 K/uL | EXTERNAL | | | Count | | | LAB | | | Plasma | | | | | + + +---- + + + | MPV | 9.9 | fl | EXTERNAL | | | | | | LAB | | + + +---- + + + | Differentia | AUTOMATED | | EXTERNAL | | | l Type | | | LAB | | + + +---- + + + | % Segmented | 58.60 | % | EXTERNAL | | | | | | LAB | | | Neutrophils | | | | | + + +---- + + + | % | 20.90 | % | EXTERNAL | | | Lymphocytes | | | LAB | | + + +---- + + + | % Monocytes | 6.15 | % | EXTERNAL | | | | | | LAB | | + + +---- + + + | % | 13.56 | % | EXTERNAL | | | Eosinophils | | | LAB | | + + +---- + + + | % Basophils | 0.79 | % | EXTERNAL | | | | | | LAB | | + + +---- + + + | Absolute | 2.81 | 1.9 0 - 7.40 | EXTERNAL | | | Segmented | | K/u L | LAB | | | Neutrophils | | | | | + + +---- + + + | Absolute | 1.00 | 1.0 0 - 3.90 | EXTERNAL | | | Lymphocytes | | K/u L | LAB | | + + +---- + + + | Absolute | 0.30 | 0.0 0 - 0.80 | EXTERNAL | | | Monocytes | | K/u L | LAB | | + + +---- + + + | Absolute | 0.65 (H) | 0.0 0 - 0.50 | EXTERNAL | | | Eosinophils | | K/u L | LAB | | + + +---- + + + | Absolute | 0.04 | 0.0 0 - 0.10 | EXTERNAL | | | Basophils | | K/u L | LAB | | + + +---- + + + | RBC | 1+Comment: | | EXTERNAL | | | Morphology | ANISO1+MACRONORMAL PLT | | LAB | | | | MORPHTesting performed | | | | | | at [facility], [address] | | | | | | [facility], | | | | | | [place] [address] | | | | | |Testing performed at [facility], [address] [facility], [place] [address] | | | | | | | [...] + +---------+ + + Comprehensive Metabolic Panel (05/30/2018 4:18 AM PDT) + + + + + [...] | 3.8 | 3.5 - 4.9 | EXTERNAL | | | | | mmol/L | LAB | | + + + + + + | Cl | 97 (L) | 99 - 109 mmol/L | EXTERNAL | | | | | | LAB | | + + + + + + | CO2 | 31 | 23 - 32 mmol/L | EXTERNAL | | | | | | LAB | | + + + + + + | Anion Gap | 14 | 5 - 20 mmol/L | EXTERNAL [...] + + + + | Creatinine | 7.8 (H) | 0.50 - 1.00 | EXTERNAL [...] + + + + | Protein, | 6.4 | 6.3 - 8.2 g/dL | EXTERNAL | | | Total | | | LAB | | + + + + + + | Albumin | 2.9 (L) | 3.6 - 5.0 g/dL | EXTERNAL | | | | | | LAB | | + + + + + + | Globulin | 3.5 | 1.3 - 4.9 g/dL | EXTERNAL [...] + + + + | ALP, | 112 | 35 - 115 U/L | EXTERNAL | | | External | | | LAB | | + + + + + + | AST | 182 (H) | 10 - 45 U/L | EXTERNAL | | | | | | LAB | | + + + + + + | ALT | 375 (H) | 10 - 65 U/L | EXTERNAL [...] | | | | | performed at [facility], [address] | | | | | | [facility], | | | | | | [place] [address] | | | | + + + [...] +---------+ + + XR Chest 1 Vw (05/29/2018 1:38 PM PDT) + + | Specimen | + + | | + + + + + | Impressions | Performed At | + + + | Moderate improvement of the right-sided pleural effusion. Right | | | basilar opacity to likely resent atelectasis and/or airspace disease. | | | Signed by: MD Kush, Xander Sign Date/Time: 05/29/2018 2:32 PM | | + + + + + + | Narrative | Performed At | + + + | CHEST ONE VIEW CLINICAL INFORMATION: Thoracentesis COMPARISON: | | | XR CHEST 2 VIEW FRONTAL AND LATERAL (05/27/2018); CT CHEST WO CONTRAST | | | (05/26/2018); FINDINGS: The heart is enlarged but stable in size. | | | No pulmonary vascular congestion. No pneumothorax. Moderate | | | proven of the right-sided pleural effusion. Right basilar opacity | | | to likely resent atelectasis and/or airspace disease. Left lung and | | | pleural spaces clear. | | + + + + + | Procedure Note | + + | Sonido Steele Conversion - 10/16/2018 9:43 PM PDT CHEST ONE [...] | disease. | | Signed by: MD Kush, Xander | | Sign Date/Time: 05/29/2018 2:32 PM | + + Cholesterol, Body Fluid (05/29/2018 12:56 PM PDT) + + | Specimen | + + | Body fluid sample | | (specimen) | + + + + + | Narrative | Performed At | + + + | FLUID CHOLESTEROL 56 This is | EXTERNAL LAB | | not a signals collector/analyst validated sample type for this method. No reference | | | ranges have been established. Testing performed at [facility], [address] | | | [place] [address] | | + + + + +---------+ + + | Performing | Address | City/State/Zipcode | Phone Number | | Organization | | | | + +---------+ + + | EXTERNAL LAB | | | | + +---------+ + + Gram Stain (05/29/2018 12:56 PM PDT) + + | Specimen | + + | Body fluid sample | | (specimen) | + + + + + | Narrative | Performed At | + + + | Specimen Description THORACIC FLUID CULTURE | EXTERNAL LAB | | 1+ | | | WBC'S SEEN | | | NO ORGANISMS SEEN | | + + + + +---------+ + + | Performing | Address | City/State/Zipcode | Phone Number | | Organization | | | | + +---------+ + + | EXTERNAL LAB | | | | + +---------+ + + Lactate Dehydrogenase, Body Fluid (05/29/2018 12:56 PM PDT) + + | Specimen | + + | Body fluid sample | | (specimen) | + + + + + | Narrative | Performed At | + + + | FLUID LDH 151 This | EXTERNAL LAB | | is not a signals collector/analyst validated sample type for this method. No | | | reference ranges have been established. Testing performed at [facility], | | | [address] [facility] [address] | | + + + + +---------+ + + | Performing | Address | City/State/Zipcode | Phone Number | | Organization | | | | + +---------+ + + | EXTERNAL LAB | | | | + +---------+ + + US Guided Thoracentesis wo Chest Tube (05/29/2018 12:31 PM PDT) + + | Specimen | + + | | + + + + + | Impressions | Performed At | + + + | Uncomplicated right thoracentesis. Drainage of 1500 cc clear | | | straw-colored fluid. Signed by: Quang Bustos Date/Time: | | | 05/29/2018 3:39 PM | | + + + + + + | Narrative | Performed At | + + + | ULTRASOUND GUIDED RIGHT THORACENTESIS CLINICAL INFORMATION: | | | therapeutic thoracentesis PROCEDURE: Prior to the procedure, risks | | | and benefits were explained to [...] | | space is punctured with an 8-Palestinian thoracentesis catheter. Fluid is | | | aspirated without complication. The patient tolerated the procedure | | | well. No immediate complications. Estimated Blood Loss: Minimal. | | + + + + + | Procedure Note | + + | Sonido Steele Conversion - 10/16/2018 9:43 PM PDT ULTRASOUND GUIDED RIGHT THORACENTESIS | [...] the pleural space is punctured with an 8-Palestinian | | thoracentesis catheter. Fluid is aspirated without complication. The | | patient tolerated the procedure well. No immediate complications. | | Estimated Blood Loss: Minimal. | | IMPRESSION: | | Uncomplicated right thoracentesis. Drainage of 1500 cc clear | | straw-colored fluid. | | Signed by: Quang Bustos | | Sign Date/Time: 05/29/2018 3:39 PM | + + PTT (05/29/2018 8:52 AM PDT) + + + + + + | Component | Value | Ref Range | Performed | Pathologist | | | | | At | Signature | + + + + + + | aPTT, | 29Comment: Testing | 23 - 32 seconds | EXTERNAL | | | Patient | performed at [facility];[id number] | LAB | | | | [address];[place] | | | | | | [address] | | | | + + + + + + + + | Specimen | + + | Blood specimen | | (specimen) | + + + +---------+ + + | Performing | Address | City/State/Zipcode | Phone Number | | Organization | | | | + +---------+ + + | EXTERNAL LAB | | | | + +---------+ + + Protime INR (05/29/2018 8:52 AM PDT) + + + + + + | Component | Value | Ref Range | Performed | Pathologist | | | | | At | Signature | + + + + + + | INR | 1.5Comment: REFERENCE | | EXTERNAL | | | [...] | | | | performed at [facility] | | | | | | [facility];[place] | | | | | | [address] | | | | + + + [...] + +---------+ + + External Lab: CBC (05/29/2018 4:57 AM PDT) + + +---- + + + | Component | Value | Ref Range | Performed | Pathologist | | | | | At | Signature | + + +---- + + + | WBC | 5.44 | 3.8 0 - 11.00 | EXTERNAL | | | | | K/u L | LAB | | + + +---- + + + | Non- | 3.30 (L) | 3.7 0 - 5.10 | EXTERNAL | | | Red Blood | | M/u L | LAB | | | Cells | | | | | | Counted | | | | | + + +---- + + + | Hemoglobin | 11.9 | 11. 3 - 15.5 | EXTERNAL | | | | | g/d L | LAB | | + + +---- + + + | Hematocrit, | 35.8 | 34. 0 - 46.0 % | EXTERNAL | | | POC | | | LAB | | + + +---- + + + | MCV | 108.6 (H) | 80. 0 - 100.0 fl | EXTERNAL | | | | | | LAB | | + + +---- + + + | MCH | 36.1 (H) | 27. 0 - 34.0 pg | EXTERNAL | | | | | | LAB | | + + +---- + + + | MCHC | 33.3 | 32. 0 - 35.5 | EXTERNAL | | | | | g/d L | LAB | | + + +---- + + + | RDW-CV | 54.7 (H) | 37 - 53 fl | EXTERNAL | | | | | | LAB | | + + +---- + + + | Platelet | 138 (L) | 150 - 400 [...] + + + | % Segmented | 56.93 | % | EXTERNAL | | | | | | LAB | | | Neutrophils | | | | | + + +---- + + + | % | 24.38 | % | EXTERNAL | | | Lymphocytes | | | LAB | | + + +---- + + + | % Monocytes | 7.25 | % | EXTERNAL | | | | | | LAB | | + + +---- + + + | % | 10.48 | % | EXTERNAL | | | Eosinophils | | | LAB | | + + +---- + + + | % Basophils | 0.96 | % | EXTERNAL | | | | | | LAB | | + + +---- + + + | Absolute | 3.10 | 1.9 0 - 7.40 | EXTERNAL | | | Segmented | | K/u L | LAB | | | Neutrophils | | | | | + + +---- + + + | Absolute | 1.33 | 1.0 0 - 3.90 | EXTERNAL | | | Lymphocytes | | K/u L | LAB | | + + +---- + + + | Absolute | 0.39 | 0.0 0 - 0.80 | EXTERNAL | | | Monocytes | | K/u L | LAB | | + + +---- + + + | Absolute | 0.57 (H) | 0.0 0 - 0.50 | EXTERNAL | | | Eosinophils | | K/u L | LAB | | + + +---- + + + | Absolute | 0.05 | 0.0 0 - 0.10 | EXTERNAL | | | Basophils | | K/u L | LAB | | + + +---- + + + | RBC | 2+Comment: | | EXTERNAL | | | Morphology | MACRO1+ANISONORMAL PLT | | LAB | | | | MORPHTesting performed | | | | | | at [facility], [address] | | | | | | [employer], | | | | | | [place] [address] | | | | | |Testing performed at [facility], [address] [facility], [place] [address] | | | | | | | [...] + +---------+ + + Comprehensive Metabolic Panel (05/29/2018 4:57 AM PDT) + + + + [...] + + + + | K | 4.2Comment: SPECIMEN | 3.5 - 4.9 | EXTERNAL | | | | SLIGHTLY HEMOLYZED | mmol/L | LAB | | + + + + + + | Cl | 98 (L) | 99 - 109 mmol/L | EXTERNAL | | | | | | LAB | | + + + + + + | CO2 | 31 | 23 - 32 mmol/L | EXTERNAL | | | | | | LAB | | + + + + + + | Anion Gap | 14 | 5 - 20 mmol/L | EXTERNAL | | | | | | LAB | | + + + + + + | Glucose, | 94Comment: SPECIMEN | 65 - 99 mg/dL | EXTERNAL | | | Fasting | SLIGHTLY HEMOLYZED | | LAB | | + + + + + + | BUN | 25 | 8 - 25 mg/dL | EXTERNAL | | | | | | LAB | | + + + + + + | Creatinine | 6.0 (H)Comment: SPECIMEN | 0.50 - 1.00 | EXTERNAL | | | | SLIGHTLY HEMOLYZED | mg/dL | LAB | | + [...] + + + + | Protein, | 6.7 | 6.3 - 8.2 g/dL | EXTERNAL [...] + + + + | Bilirubin | 0.8Comment: SPECIMEN | 0.1 - 1.5 mg/dL | EXTERNAL | | | Total | SLIGHTLY HEMOLYZED | | LAB | | + + + + + + | ALP, | 117 (H) | 35 - 115 U/L | EXTERNAL | | | External | | | LAB | | + + + + + + | AST | 343 (H)Comment: SPECIMEN | 10 - 45 U/L | EXTERNAL | | | | SLIGHTLY HEMOLYZED | | LAB | | + + + + + + | ALT | 527 (H)Comment: SPECIMEN | 10 - 65 U/L | EXTERNAL | | | | SLIGHTLY HEMOLYZED | | LAB | | + + [...] | | | | | | MDRD IDAR traceable | | | | | | equation.Testing | | | | | | performed at [facility], [address] | | | | | | [facility], | | | | | | [place] [address] | | | | + + + + + + + + | Specimen | + + | Blood specimen | | (specimen) | + + + +---------+ + + | Performing | Address | City/State/Zipcode | Phone Number | | Organization | | | | + +---------+ + + | EXTERNAL LAB | | | | + +---------+ + + US Abdomen Limited (05/28/2018 7:26 PM PDT) + + | Specimen | + + | | + + + + + | Impressions | Performed At | + + + | Upper abdomen ultrasound without identified gallbladder abnormality | | | or biliary dilatation. Moderate ascites and right pleural effusion | | | as seen on recent CT. Patient is on peritoneal dialysis. Signed by: | | | MD Mejia, Stevo Sign Date/Time: 05/28/2018 9:24 PM | | + + + + + + | Narrative | Performed At | + + + | ULTRASOUND ABDOMEN, LIMITED CLINICAL INFORMATION: Abdominal pain. | | | COMPARISON: IR AV FISTULAGRAM IMAGING (09/01/2015); CT CHEST WO | | | CONTRAST (05/26/2018); PROCEDURE: Evaluation of [...] | extrahepatic bile duct dilatation. Gallbladder: No gallstones. No | | | tenderness over the gallbladder. Pancreas: Pancreas is seen at the | | | head, body and shows normal echogenicity without ductal dilatation or | | | fluid collections. Splenomegaly again noted 15.8 cm. Bilateral | | | kidneys is atrophic end-stage size without hydronephrosis, stone or | | | mass. Free fluid: Prominent ascites in this patient on peritoneal | | | dialysis. Large right pleural effusion seen as also seen on CT | | | 05/26/2018. | | + + + + + | Procedure Note | + + | Cedric, Rad Conversion - 10/16/2018 9:43 PM PDT ULTRASOUND ABDOMEN, LIMITED | | [...] Date/Time: 05/28/2018 9:24 PM | + + Troponin I (05/28/2018 1:59 PM PDT) + + + + + + | Component | Value | Ref Range | Performed | Pathologist | | | | | At | Signature | + + + + + + | Troponin I, | 0.037Comment: 0.04 | 0.00 - 0.04 | EXTERNAL [...] | | | | | | [facility];[address] [place] [address] | | | | | | [facility];[place] [address] | | | | + + + + + + + + | Specimen | + + | Blood specimen | | (specimen) | + + + +---------+ + + | Performing | Address | City/State/Zipcode | Phone Number | | Organization | | | | + +---------+ + + | EXTERNAL LAB | | | | + +---------+ + + Hepatitis Panel, Acute (05/28/2018 12:36 PM PDT) + + + + + + | Component | Value | Ref Range | Performed | Pathologist | | | | | At | Signature | + + + + + + | HEP A IGM | NON REACTIVE | | EXTERNAL | | | | | | LAB | | + + + + + + | HEP B | NON REACTIVE | | EXTERNAL | | | SURFACE | | | LAB | | | ANTIBODY | | | | | + + + + + + | HEP B CORE | NON REACTIVE | | EXTERNAL | | | IgM | | | LAB | | + + + + + + | HCV Ab | NON REACTIVE | | EXTERNAL | | | | | | LAB | | + + + + + + | Hepatitis | No serologic evidence of | | EXTERNAL | | | Interp.: | HAV, HBV, or HCV | | LAB | | | | infection.Comment: | | | | | | Testing performed at | | | | | | [facility], [address] | | | | | | [place] | | | | | | [address] | | | | + + + + + + + + | Specimen | + + | Blood specimen | | (specimen) | + + + +---------+ + + | Performing | Address | City/State/Zipcode | Phone Number | | Organization | | | | + +---------+ + + | EXTERNAL LAB | | | | + +---------+ + + HIV 1 and 2 Antibody Differentiation (05/28/2018 12:36 PM PDT) + + + + + + | Component | Value | Ref Range | Performed | Pathologist | | | | | At | Signature | + + + + + + | HIV 1 and 2 | NON REACTIVEComment: THE | | EXTERNAL | | | Ab | NON REACTIVE HIV 1/2 | | LAB | | | | RESULT INDICATES THAT | | | | | | NEITHER ANTIBODIES NOR | | | | | | P24 ANTIGEN TO HIV 1/2 | | | | | | HAVE BEEN DETECTED IN | | | | | | THIS SPECIMEN. THIS | | | | | | RESULT DOES NOT PRECLUDE | | | | | | PREVIOUS EXPOSURE OR | | | | | | INFECTION.Testing | | | | | | performed at [facility], [address] | | | | | | [facility], | | | | | | [place] [address] | | | | + + + [...] + +---------+ + + Renal Function Panel (05/28/2018 12:09 PM PDT) + + + + + + | Component | Value | Ref Range | Performed | Pathologist | | | | | At | Signature | + + + + + + | Na | 141 | 135 - 145 | EXTERNAL | | | | | mmol/L | LAB | | + + + + + + | K | 4.3 | 3.5 - 4.9 | EXTERNAL | [...] + + + + | Glucose, | 78 | 65 - 99 mg/dL | EXTERNAL | | | Fasting | | | LAB | | + + + + + + | BUN | 43 (H) | 8 - 25 mg/dL | EXTERNAL | | | | | | LAB | | + + + + + + | Creatinine | 7.97 (H) | 0.50 - 1.00 | EXTERNAL [...] | | | | performed at [facility];[address] | | | | | | [facility];[place], [place] | | | | | | [address] | | | | + + + [...] + +---------+ + + ECG 12 lead (05/28/2018 11:58 AM PDT) + + + + + + | Component | Value | Ref Range | Performed | Pathologist | | | | | At | Signature | + + + + + + | DIAGNOSIS: | Normal sinus rhythmPoor | | EXTERNAL | | | | R - progressionAbnormal | | LAB | | | | ECGWhen compared with | | | | | | ECG of 07-MAR-2014 | | | | | | 16:29,Nonspecific T wave | | | | | | abnormality now evident | | | | | | in Inferior leadsT wave | | | | | | inversion now evident | | | | | | in Lateral | | | | | | leadsConfirmed by BRIONNA | | | | | | JESSICA ([id number]) on 05/29/2018 | | | | | | 1:05:04 PM | | | | + + + + + + + + | Specimen | + + | | + + + + + | Narrative | Performed At | + + + | Historically converted procedure from [facility] Epic environment | EXTERNAL LAB | + + + + +---------+ + + | Performing | Address | City/State/Zipcode | Phone Number | | Organization | | | | + +---------+ + + | EXTERNAL LAB | | | | + +---------+ + + Troponin I (05/28/2018 9:23 AM PDT) + + + + + + | Component | Value | Ref Range | Performed | Pathologist | | | | | At | Signature | + + + + + + | Troponin I, | 0.034Comment: 0.04 | 0.00 - 0.04 | EXTERNAL [...] | | | | | | [facility];[address] [place] [address] | | | | | | [facility];[place] [address] | | | | + + + + + + + + | Specimen | + + | Blood specimen | | (specimen) | + + + +---------+ + + | Performing | Address | City/State/Zipcode | Phone Number | | Organization | | | | + +---------+ + + | EXTERNAL LAB | | | | + +---------+ + + Sedimentation rate, automated (05/28/2018 9:23 AM PDT) + + + + + + | Component | Value | Ref Range | Performed | Pathologist | | | | | At | Signature | + + + + + + | Sed Rate | 2Comment: Testing | 0 - 20 mm/Hr | EXTERNAL | | | | performed at [facility], [address] | | LAB | | | | [place], | | | | | | [place] [address] | | | | + + + [...] + +---------+ + + External Lab: CBC (05/28/2018 9:23 AM PDT) + + +---- + + + | Component | Value | Ref Range | Performed | Pathologist | | | | | At | Signature | + + +---- + + + | WBC | 5.10 | 3.8 0 - 11.00 | EXTERNAL | | | | | K/u L | LAB | | + + +---- + + + | Non- | 3.25 (L) | 3.7 0 - 5.10 | EXTERNAL | | | Red Blood | | M/u L | LAB | | | Cells | | | | | | Counted | | | | | + + +---- + + + | Hemoglobin | 11.9 | 11. 3 - 15.5 | EXTERNAL | | | | | g/d L | LAB | | + + +---- + + + | Hematocrit, | 35.5 | 34. 0 - 46.0 % | [...] +---- + + + | MCHC | 33.5 | 32. 0 - 35.5 | EXTERNAL | | | | | g/d L | LAB | | + + +---- + + + | RDW-CV | 56.9 (H) | 37 - 53 fl | EXTERNAL | | | | | | LAB | | + + +---- + + + | Platelet | 142 (L) | 150 - 400 K/uL | EXTERNAL | | | Count | | | LAB | | | Plasma | | | | | + + +---- + + + | MPV | 10.6 | fl | EXTERNAL | | | | | | LAB | | + + +---- + + + | Differentia | AUTOMATED | | EXTERNAL | | | l Type | | | LAB | | + + +---- + + + | % Segmented | 59.97 | % | EXTERNAL | | | | | | LAB | | | Neutrophils | | | | | + + +---- + + + | % | 26.66 | % | EXTERNAL | | | Lymphocytes | | | LAB | | + + +---- + + + | % Monocytes | 6.53 | % | EXTERNAL | | | | | | LAB | | + + +---- + + + | % | 5.86 | % | EXTERNAL | | | Eosinophils | | | LAB | | + + +---- + + + | % Basophils | 0.98 | % | EXTERNAL | | | | | | LAB | | + + +---- + + + | Absolute | 3.06 | 1.9 0 - 7.40 | EXTERNAL | | | Segmented | | K/u L | LAB | | | Neutrophils | | | | | + + +---- + + + | Absolute | 1.36 | 1.0 0 - 3.90 | EXTERNAL | | | Lymphocytes | | K/u L | LAB | | + + +---- + + + | Absolute | 0.33 | 0.0 0 - 0.80 | EXTERNAL | | | Monocytes | | K/u L | LAB | | + + +---- + + + | Absolute | 0.30 | 0.0 0 - 0.50 | EXTERNAL | | | Eosinophils | | K/u L | LAB | | + + +---- + + + | Absolute | 0.05 | 0.0 0 - 0.10 | EXTERNAL | | | Basophils | | K/u L | LAB | | + + +---- + + + | RBC | 1+Comment: | | EXTERNAL | | | Morphology | ANISO2+MACRONORMAL PLT | | LAB | | | | MORPHTesting performed | | | | | | at [facility], [address] | | | | | | [email or web address], | | | | | | [place] [address] | | | | | |Testing performed at [facility], [address] [facility] [place] [address] | | | | | | | [...] | | | + +---------+ + + C-Reactive Protein (05/28/2018 9:23 AM PDT) + + + + + + | Component | Value | Ref Range | Performed | Pathologist | | | | | At | Signature | + + + + + + | CRP | 5.1 (H)Comment: Testing | mg/dL | EXTERNAL | | | | performed at [facility], [address] | | LAB | | | | [address] [place], | | | | | | [place] [address] | | | | + + + [...] + +---------+ + + , Serum, Qual (05/28/2018 9:23 AM PDT) + + + + + + | Component | Value | Ref Range | Performed | Pathologist | | | | | At | Signature | + + + + + + | HCG | NEGATIVEComment: Testing | | EXTERNAL | | | QUALITATIVE | performed at [facility], [address] | | LAB | | | | [address] [facility], | | | | | | [place] [address] | | | | + + + + + + + + | Specimen | + + | Blood specimen | | (specimen) | + + + +---------+ + + | Performing | Address | City/State/Zipcode | Phone Number | | Organization | | | | + +---------+ + + | EXTERNAL LAB | | | | + +---------+ + + TSH (05/28/2018 9:23 AM PDT) + + + + + + | Component | Value | Ref Range | Performed | Pathologist | | | | | At | Signature | + + + + + + | TSH | 1.270Comment: Testing | 0.450 - 5.100 | EXTERNAL | | | | performed at [facility], [address] | uIU/mL | LAB | | | | [address] [place], | | | | | | [place] [address] | | | | + + + [...] + +---------+ + + Comprehensive Metabolic Panel (05/28/2018 9:23 AM PDT) + + + + + + | Component | Value | Ref Range | Performed | Pathologist | | | | | At | Signature | + + + + + + | Na | 137 | 135 - 145 | EXTERNAL | | | | | mmol/L | LAB | | + + + + + + | K | 4.2 | 3.5 - 4.9 | EXTERNAL | | | | | mmol/L | LAB | | + + + + + + | Cl | 96 (L) | 99 - 109 [...] + + + + | Glucose, | 113 (H) | 65 - 99 mg/dL | EXTERNAL | | | Fasting | | | LAB | | + + + + + + | BUN | 43 (H) | 8 - 25 mg/dL | EXTERNAL | | | | | | LAB | | + + + + + + | Creatinine | 8.4 (H) | 0.50 - 1.00 | EXTERNAL | | | | | mg/dL | LAB | | + + + + + + | BUN/Creatin | 5 | | EXTERNAL | | | ine Ratio | | | LAB | | + + + + + + | Calcium | 9.0 | 8.5 - 10.5 | EXTERNAL | [...] + + + + | Globulin | 3.5 | 1.3 - 4.9 g/dL | EXTERNAL | | | | | | LAB | | + + + + + + | A/G Ratio | 0.9 (L) | 1.0 - 2.4 | EXTERNAL | | | | | | LAB | | + + + + + + | Bilirubin | 0.9 | 0.1 - 1.5 mg/dL | EXTERNAL | | | Total | | | LAB | | + + + + + + | ALP, | 106 | 35 - 115 U/L | EXTERNAL | | | External | | | LAB | | + + + + + + | AST | 538 (H) | 10 - 45 U/L | EXTERNAL | | | | | | LAB | | + + + + + + | ALT | 599 (H) | 10 - 65 U/L | EXTERNAL [...] | | | | | performed at [facility], [address] | | | | | | [facility], | | | | | | [place] [address] | | | | + + + + + + + + | Specimen | + + | Blood specimen | | (specimen) | + + + +---------+ + + | Performing | Address | City/State/Zipcode | Phone Number | | Organization | | | | + +---------+ + + | EXTERNAL LAB | | | | + +---------+ + + Medical Cytology (05/28/2018 8:00 AM PDT) + + | Specimen | + + | Body fluid sample | | (specimen) | + + + + + | Narrative | Performed At | + + + | ORDERING PHYSICIAN: Maria Luisa ALMEIDA, Aneudy Briggs PATIENT NAME: | EXTERNAL LAB | | DARA LOUISE GENDER: F : 1995 SPECIMEN(S): | | | A PLEURAL FLUID, RIGHT GROSS DESCRIPTION: 50 ML LIGHT BROWN CLOUDY | | | FLUID WITH LARGE WHITE FRAGMENTS CLINICAL HISTORY: NO CLINICAL DATA | | | PROVIDED LABORATORY PREPARATIONS: 1 MONOLAYER, 1 CYTOLOGY CELL | | | BLOCK CYTOLOGIC INTERPRETATION: Pleural effusion: Negative for | | | malignant cells. DESCRIPTION: The preparations contain mesothelial | | | cells, rare inflammatory cells, and acellular proteinaceous material. | | | Atypical cytologic findings are not encountered. SPECIMEN ADEQUACY: | | | Satisfactory for Evaluation PERFORMING LABORATORY: Technical | | | preparation was performed by [facility], [address] | | | [place] [address] (Talent Buyer: Matt Claudio D.O.; | | | CLIA#: [id number]). Professional interpretation was performed by | | | [facility], [facility], [facility] [address] | | | [place] [address] (Talent Buyer: Daniel Larson M.D.; | | | CLIA#: [id number]).6 Diagnostician: Marie BROOKS ([facility]) | | | [employer] Diagnostician: Anahy Da Silva MD Pathologist | | | Electronically Signed 05/30/2018 | | + + + + +---------+ + + | Performing | Address | City/State/Zipcode | Phone Number | | Organization | | | | + +---------+ + + | EXTERNAL LAB | | | | + +---------+ + + Gram Stain, reflex Sputum Culture (05/27/2018 8:15 PM PDT) + + | Specimen | + + | Body fluid sample | | (specimen) | + + + + + | Narrative | Performed At | + + + | Specimen Description SPUTUM GRAM STAIN | EXTERNAL LAB | | LESS THAN 10 WBCS/LPF | | | LESS THAN 10 SEC/LPF | | | NO ORGANISMS SEEN | | | CULTURE 1+ | | | NORMAL UPPER | | | RESPIRATORY ALESSANDRO | | + + + + +---------+ + + | Performing | Address | City/State/Zipcode | Phone Number | | Organization | | | | + +---------+ + + | EXTERNAL LAB | | | | + +---------+ + + Hepatitis Panel, Chronic (05/27/2018 5:58 PM PDT) + + + + + + | Component | Value | Ref Range | Performed | Pathologist | | | | | At | Signature | + + + + + + | Hep A Total | REACTIVE (A) | | EXTERNAL | | | Ab Interp | | | LAB | | + + + + + + | HEP B | NON REACTIVE | | EXTERNAL | | | SURFACE | | | LAB | | | ANTIBODY | | | | | + + + + + + | Hepatitis B | NON REACTIVE | | EXTERNAL | | | Core Ab | | | LAB | | | Total | | | | | + + + + + + | HEP B | 3.27 (H)Comment: <1.00 | IV | EXTERNAL | | | SURFACE | Non | | LAB | | | ANTIBODY | Immune1.00 OR MORE | | | | | | Indicates vaccine | | | | | | response or response to | | | | | | HBV infection. An Index | | | | | | Value (IV) of 1.00 is | | | | | | equivalent to 10 mIU/mL. | | | | | | Samples with an IV of | | | | | | 1.00 or greater are | | | | | | considered reactive | | | | | | (protected) in | | | | | | accordance with CDC | | | | | | Guidelines. | | | | + + + + + + | HCV Ab | NON REACTIVE | | EXTERNAL | | | | | | LAB | | + + + + + + | Hepatitis | Current or past HAV | | EXTERNAL | | | Interpretat | infection. Past HBV | | LAB | | | ion | infection or | | | | | | vaccination. No | | | | | | serologic evidence of | | | | | | HCV infection.Comment: | | | | | | Testing performed at | | | | | | [facility], [address] [facility] | | | | | | [place] | | | | | | [address] | | | | + + + + + + + + | Specimen | + + | | + + + +---------+ + + | Performing | Address | City/State/Zipcode | Phone Number | | Organization | | | | + +---------+ + + | EXTERNAL LAB | | | | + +---------+ + + ECHO Complete (05/27/2018 12:01 PM PDT) + + | Specimen | + + | | + + + + + | Impressions | Performed At | + + + | 1. Sinus rhythm. 2. A 2-dimensional transthoracic echocardiogram | | | with m-mode, spectral and color flow Doppler was perfomed. 3. This | | | was a technically adequate study. [...] valve is normal. 18. | | | Nyas-en-gnqdozqw eccentric mitral regurgitation is present. 19. | [...] DARA LOUISE Date of : 1995 | | | Performing Physician: Robel Yusuf | | | MD | | | INDICATIONS SOB CONCLUSIONS 1. [...] valve is normal. 18. | | | Ahrr-kj-vsmdebnl eccentric mitral regurgitation is present. 19. | [...] Overall left ventricular systolic function is severely | | | impaired with, an EF between 20 - 25 %. Left Ventricle: The left | | | ventricle cavity size is normal. Left Ventricle: [...] is | | | normal. Mitral Valve: Xmho-ii-bkrzdikf eccentric mitral regurgitation | | | is present. Tricuspid Valve: Severe tricuspid regurgitation present. | | | Tricuspid Valve: The right ventricular systolic pressure (pulmonary | | | artery systolic pressure), as measured by Doppler, is 30+15=45 mmHg. | | | Non-coaptation of the TV leaflets. Pulmonic Valve: Mild pulmonic | | | regurgitation. Pericardium: There is no pericardial effusion. | | | Pericardium: Pleural effusion present. IVC/Hepatic Veins: The IVC is | | | dilated (>2.5cm) and does not collapse with sniff, consistent with | | | central venous pressures of 15 mmHg. Aorta: The aortic root and | | | ascending aorta are normal in size. Mass: No mass visualized | | | Thrombus: No clot visualized MEASUREMENTS RA Area: | | | 28.23 cm2 Ao asc: 2.62 cm Ao sinus: 2.49 cm IVC: 2.62 | | | cm EDV(Teich): 118.24 ml IVSd: 1.15 cm LVIDd: 4.99 cm | | | LVPWd: 1.27 cm LVOT Diam: 1.91 cm %FS: 9.56 % EF(Teich): | | | 20.92 % ESV(Teich): 93.49 ml IVSs: 1.28 cm LVIDs: 4.52 | | | cm LVPWs: 1.50 cm SV(Teich): 24.74 ml RA Major: 6.10 cm | | | RVIDd: 4.54 cm LVEF MOD A2C: 18.03 % SV MOD A2C: 26.28 ml | | | LVEF MOD A4C: 22.87 % SV MOD A4C: 31.28 ml EF Biplane: | | | 18.90 % LVEDV MOD BP: 142.56 ml LVESV MOD BP: 115.61 ml LVEDV | | | MOD A2C: 145.73 ml LVLd A2C: 9.47 cm LVEDV MOD A4C: 136.75 | | | ml LVLd A4C: 9.26 cm LVESV MOD A2C: 119.44 ml LVLs A2C: | | | 9.18 cm LVESV MOD A4C: 105.47 ml LVLs A4C: 8.58 cm | | | LAESV(A-L): 63.30 ml LAESV Index (A-L): 30.43 ml/m2 LAAs A2C: | | | 20.97 cm2 LAESV A-L A2C: 65.71 ml LALs A2C: 5.68 cm LAAs | | | A4C: 19.94 cm2 LAESV A-L A4C: 60.20 ml LALs A4C: 5.60 cm | | | TAPSE: 1.58 cm HR: 79.62 BPM AV maxP.06 mmHg AV | | | meanP.71 mmHg AV Vmax: 1.23 m/s AV Vmean: 0.92 m/s AV | | | VTI: 20.07 cm TIMA Vmax: 1.74 cm2 TIMA (VTI): 1.93 cm2 AVAI | | | Vmax: 0.00 cm2/m2 AVAI (VTI): 0.00 cm2/m2 LVOT maxP.22 | | | mmHg LVOT meanP.03 mmHg LVSI Dopp: 18.70 ml/m2 LVSV Dopp: | | | 38.91 ml LVOT Vmax: 0.74 m/s LVOT Vmean: 0.45 m/s LVOT | | | VTI: 13.50 cm MV A Shahid: 0.54 m/s MV DecT: 117.65 ms MV E | | | Shahid: 0.80 m/s MV E/A Ratio: 1.46 Septal e': 0.03 m/s | | | Septal E/e': 26.26 Lateral e': 0.04 m/s Lateral E/e': 16.81 | | | RV S': 0.07 m/s TR maxP.08 mmHg TR Vmax: 2.74 m/s | | | Building Tech: MW Authenticated by: Robel Yusuf MD Report | | | Date/Time: 05-27-2018 13:59:57 | | + + + + + | Procedure Note | + + | Sonido Steele Conversion - 10/16/2018 9:43 PM PDT Patient Name: Anders LOUISE of | | : 1995 Performing Physician: Robel Yusuf | | INDICATIONS S | | OB CONCLUSIONS 1. Sinus rhythm.2. A 2-dimensional transthoracic echocardiogram [...] aortic stenosis.17. The mitral valve is normal.18. Bukv-ha-ypuqxsqy | | eccentric mitral regurgitation is present.19. [...] | | arch are normal.26. No mass [id number]. No clot visualized FINDINGS--------ECG | | rhythm: Sinus rhythm.Study: A 2-dimensional transthoracic echocardiogram with m-mode, | | spectral and color flow Doppler was perfomed.Study: This was a technically adequate | | study.Left Ventricle: Overall left ventricular systolic function is severely impaired | | with, an EF between 20 - 25 %.Left Ventricle: The left ventricle cavity size is | | normal.Left Ventricle: There is mild concentric left ventricular hypertrophy.Left | | Ventricle: There is severe global hypokinesis of LV contractility.Left Ventricle: There | | is septal flattening in diastole which is consistent with right ventricular volume | | overload.Left Ventricle: Pseudonormal LV diastolic filling pattern, consistent with | | elevated LA pressure and moderate dysfunction (Grade II).Right Ventricle: The right | | ventricle is moderately enlarged.Right Ventricle: The right ventricular systolic | | function is mildly impaired.Left Atrium: The left atrial size is normal.Right Atrium: | | The right atrium is moderately enlarged.Aortic Valve: The aortic valve is | | trileaflet.Aortic Valve: There is mild aortic regurgitation.Aortic Valve: There is no | | evidence of aortic stenosis.Mitral Valve: The mitral valve is normal.Mitral Valve: | | Pnzw-ov-wgxyuwve eccentric mitral regurgitation is present.Tricuspid Valve: Severe | | tricuspid regurgitation present.Tricuspid Valve: The right ventricular systolic pressure | | (pulmonary artery systolic pressure), as measured by Doppler, is 30+15=45 mmHg. | | Non-coaptation of the TV leaflets.Pulmonic Valve: Mild pulmonic | | regurgitation.Pericardium: There is no pericardial effusion.Pericardium: Pleural | | effusion present.IVC/Hepatic Veins: The IVC is dilated (>2.5cm) and does not collapse | | with sniff, consistent with central venous pressures of 15 mmHg.Aorta: The aortic root | | and ascending aorta are normal in size.Mass: No mass visualizedThrombus: No clot | | visualized MEASUREMENTS RA Area: 28.23 cm2Ao asc: 2.62 cmAo sinus: | | 2.49 cmIVC: 2.62 cmEDV(Teich): 118.24 mlIVSd: 1.15 cmLVIDd: 4.99 cmLVPWd: 1.27 | | cmLVOT Diam: 1.91 cm%FS: 9.56 %EF(Teich): 20.92 %ESV(Teich): 93.49 mlIVSs: | | 1.28 cmLVIDs: 4.52 cmLVPWs: 1.50 cmSV(Teich): 24.74 mlRA Major: 6.10 cmRVIDd: | | 4.54 cmLVEF MOD A2C: 18.03 %SV MOD A2C: 26.28 mlLVEF MOD A4C: 22.87 %SV MOD A4C: | | 31.28 mlEF Biplane: 18.90 %LVEDV MOD BP: 142.56 mlLVESV MOD BP: 115.61 mlLVEDV | | MOD A2C: 145.73 mlLVLd A2C: 9.47 cmLVEDV MOD A4C: 136.75 mlLVLd A4C: 9.26 | | cmLVESV MOD A2C: 119.44 mlLVLs A2C: 9.18 cmLVESV MOD A4C: 105.47 mlLVLs A4C: | | 8.58 cmLAESV(A-L): 63.30 mlLAESV Index (A-L): 30.43 ml/m2LAAs A2C: 20.97 [id number] | | A-L A2C: 65.71 mlLALs A2C: 5.68 cmLAAs A4C: 19.94 [id number] A-L A4C: 60.20 mlLALs | | A4C: 5.60 cmTAPSE: 1.58 cmHR: 79.62 BPMAV maxP.06 mmHgAV meanP.71 | | mmHgAV Vmax: 1.23 m/Elizabeth Vmean: 0.92 m/Elizabeth VTI: 20.07 cmAVA Vmax: 1.74 cm2AVA | | (VTI): 1.93 [id number] Vmax: 0.00 cm2/m2AVAI (VTI): 0.00 cm2/m2LVOT maxP.22 | | mmHgLVOT meanP.03 mmHgLVSI Dopp: 18.70 ml/m2LVSV Dopp: 38.91 mlLVOT Vmax: | | 0.74 m/sLVOT Vmean: 0.45 m/sLVOT VTI: 13.50 cmMV A Shahid: 0.54 m/sMV DecT: 117.65 | | msMV E Shahid: 0.80 m/sMV E/A Ratio: 1.46Septal e': 0.03 m/sSeptal E/e': | | 26.26Lateral e': 0.04 m/sLateral E/e': 16.81RV S': 0.07 m/sTR maxP.08 | | mmHgTR Vmax: 2.74 m/s Building Tech: MWSydneehenticated by: Robel Yusuf MDRthe hospital of central [place] | | Date/Time: 05-27-2018 13:59:57 IMPRESSION: 1. Sinus rhythm.2. A 2-dimensional | | transthoracic [...] The mitral valve is | | normal.18. Odul-dw-rkqzggre eccentric mitral regurgitation is present.19. Severe | [...] and aortic arch are normal.26. No mass [id number]. No clot visualized | |LVPWd: 1.27 cm | |LVOT Diam: [...] |TR Vmax: 2.74 m/s | | | |Building Tech: MW | |Authenticated by: Robel Yusuf MD [...] The mitral valve is normal. | |18. Vmkm-ds-ebswgfgi eccentric mitral regurgitation is present. | |19. [...] |27. No clot visualized | + + XR Chest 2 Vws (05/27/2018 11:02 AM PDT) + + | Specimen | + + | | + + + + + | Impressions | Performed At | + + + | 1. Large right-sided pleural effusion is causing near complete | | | atelectasis of the entire right lung with only a small aerated portion | | | of right upper lobe remaining. [...] CLINICAL INFORMATION: Follow up pneumonia . | | | COMPARISON: CT CHEST WO CONTRAST (05/26/2018); XR CHEST 2 VIEW FRONTAL | | | AND LATERAL (05/26/2018); XR CHEST [...] size. The pulmonary vascular pattern is normal. | | | Overlying oxygen tubing is seen. The osseous structures are | | | intact. | | + + + + + | Procedure Note | + + | Sonido Steele Conversion - 10/16/2018 9:43 PM PDT CHEST [...] Date/Time: 05/27/2018 11:20 AM | + + External Lab: CBC (05/27/2018 4:25 AM PDT) + + + + + + | Component | Value | Ref Range | Performed | Pathologist | | | | | At | Signature | + + + + + + | WBC | 6.62 | 3.80 - 11.00 | EXTERNAL | | | | | K/uL | LAB | | + + + + + + | Non- | 3.48 (L) | 3.70 - 5.10 | EXTERNAL | | | Red Blood | | M/uL | LAB | | | Cells | | | | | | Counted | | | | | + + + + + + | Hemoglobin | 12.5 | 11.3 - 15.5 | EXTERNAL | | | | | g/dL | LAB | | + + + + + + | Hematocrit, | 37.9 | 34.0 - 46.0 % | EXTERNAL [...] MCHC | 32.9 | 32.0 - 35.5 | EXTERNAL | | | | | g/dL | LAB | | + + + + + + | RDW-CV | 59.1 (H) | 37 - 53 fl | EXTERNAL | | | | | | LAB | | + + + + + + | Platelet | 139 (L) | 150 - 400 K/uL | EXTERNAL | | | Count | | | LAB | | | Plasma | | | | | + + + + + + | MPV | 9.9 | fl | EXTERNAL | | | | | | LAB | | + + + + + + | Differentia | AUTOMATED | | EXTERNAL | | | l Type | | | LAB | | + + + + + + | % Segmented | 67.20 | % | EXTERNAL | | | | | | LAB | | | Neutrophils | | | | | + + + + + + | % | 19.48 | % | EXTERNAL | | | Lymphocytes | | | LAB | | + + + + + + | % Monocytes | 11.06 | % | EXTERNAL | | | | | | LAB | | + + + + + + | % | 1.54 | % | EXTERNAL | | | Eosinophils | | | LAB | | + + + + + + | % Basophils | 0.72 | % | EXTERNAL | | | | | | LAB | | + + + + + + | Absolute | 4.45 | 1.90 - 7.40 | EXTERNAL | | | Segmented | | K/uL | LAB | | | Neutrophils | | | | | + + + + + + | Absolute | 1.29 | 1.00 - 3.90 | EXTERNAL | | | Lymphocytes | | K/uL | LAB | | + + + + + + | Absolute | 0.73 | 0.00 - 0.80 | EXTERNAL | | | Monocytes | | K/uL | LAB | | + + + + + + | Absolute | 0.10 | 0.00 - 0.50 | EXTERNAL | | | Eosinophils | | K/uL | LAB | | + + + + + + | Absolute | 0.05 | 0.00 - 0.10 | EXTERNAL | [...] + + + + | Platelet | DECREASEDComment: | | EXTERNAL | | | Estimate | Testing performed at | | LAB | | | | [facility];[address];[place] [address] | | | | + + + + + + + + | Specimen | + + | Blood specimen | | (specimen) | + + + +---------+ + + | Performing | Address | City/State/Zipcode | Phone Number | | Organization | | | | + +---------+ + + | EXTERNAL LAB | | | | + +---------+ + + Phosphorus (05/27/2018 4:25 AM PDT) + + + + + + | Component | Value | Ref Range | Performed | Pathologist | | | | | At | Signature | + + + + + + | PHOSPHORUS | 8.0 (H)Comment: Testing | 2.3 - 4.8 mg/dL | EXTERNAL | | | | performed at [facility], [address] | | LAB | | | | [address], | | | | | | [place] [address] | | | | + + + [...] +---------+ + + B Type Natriuretic Peptide (05/27/2018 4:25 AM PDT) + + + + + + | Component | Value | Ref Range | Performed | Pathologist | | | | | At | Signature | + + + + + + | BNP | 1,153.92 (H)Comment: | 0 - 100 pg/mL | EXTERNAL | | | | Testing performed at | | LAB | | | | [facility];[address] | | | | | | [address];[place] [address] | | | | + + + + + + + + | Specimen | + + | Blood specimen | | (specimen) | + + + +---------+ + + | Performing | Address | City/State/Zipcode | Phone Number | | Organization | | | | + +---------+ + + | EXTERNAL LAB | | | | + +---------+ + + Magnesium (05/27/2018 4:25 AM PDT) + + + + + + | Component | Value | Ref Range | Performed | Pathologist | | | | | At | Signature | + + + + + + | Magnesium | 2.7 (H)Comment: Testing | 1.7 - 2.4 mg/dL | EXTERNAL | | | | performed at [facility], [address] | | LAB | | | | [address], | | | | | | [place] [address] | | | | + + + [...] + +---------+ + + Basic Metabolic Panel (05/27/2018 4:25 AM PDT) + + + + + + | Component | Value | Ref Range | Performed | Pathologist | | | | | At | Signature | + + + + + + | Na | 135 | 135 - 145 | EXTERNAL | | | | | mmol/L | LAB | | + + + + + + | K | 5.9 (H) | 3.5 - 4.9 | EXTERNAL | | | | | mmol/L | LAB | | + + + + + + | Cl | 96 (L) | 99 - 109 mmol/L | EXTERNAL | | | | | | LAB | | + + + + + + | CO2 | 25 | 23 - 32 mmol/L | EXTERNAL | | | | | | LAB | | + + + + + + | Anion Gap | 20 | 5 - 20 mmol/L | EXTERNAL | | | | | | LAB | | + + + + + + | Glucose, | 74 | 65 - 99 mg/dL | EXTERNAL | | | Fasting | | | LAB | | + + + + + + | BUN | 51 (H) | 8 - 25 mg/dL | EXTERNAL | | | | | | LAB | | + + + + + + | Creatinine | 9.2 (H) | 0.50 - 1.00 | EXTERNAL | | | | | mg/dL | LAB | | + + + + + + | BUN/Creatin | 6 | | EXTERNAL | | | ine Ratio | | | LAB | | + + + + + + | Calcium | 9.4 | 8.5 - 10.5 | EXTERNAL | [...] | | | | | performed at [facility], [address] | | | | | | [facility], | | | | | | [place] [address] | | | | + + + [...] + +---------+ + + HISTORICAL MICROBIOLOGY RESULT (05/26/2018 6:06 PM PDT) + + | Specimen | [...] Not Detected PARAINFLUENZA 3 | | | Not Detected PARAINFLUENZA 4 Not | | | Detected RESP SYNCYTIAL VIRUS DETECTED | | | Abnormal BORDETELLA PERTUSSIS Not Detected | | | CHLAMYDIAE PNEUMONIAE Not Detected MYCOPLASMA | | | PNEUMONIAE Not Detected RESP PANEL INTERP | | | Testing performed by Molecular Methodology | | | Testing performed at [facility], [address] [place], [place] | | | [address] | | + + + + +---------+ + + | Performing | Address | City/State/Zipcode | Phone Number | | Organization | | | | + +---------+ + + | EXTERNAL LAB | | | | + +---------+ + + MRSA NAAT (05/26/2018 6:06 PM PDT) + + | Specimen | + + | | + + + + + | Narrative | Performed At | + + + | SOURCE NARES(NOSE) MRSA | EXTERNAL LAB | | PCR NEGATIVE Testing | | | performed at [facility];[address] [place] [address];[place] [address] | | + + + + +---------+ + + | Performing | Address | City/State/Zipcode | Phone Number | | Organization | | | | + +---------+ + + | EXTERNAL LAB | | | | + +---------+ + + Procalcitonin (05/26/2018 5:27 PM PDT) + + + + + + | Component | Value | Ref Range | Performed | Pathologist | | | | | At | Signature | + + + + + + | PROCALCITON | 0.76 (H)Comment: | ng/mL | EXTERNAL | | [...] | | | | | at [facility];[address] [place] [address] | | | | | | [facility];[place] [address] | | | | + + + + + + + + | Specimen | + + | | + + + +---------+ + + | Performing | Address | City/State/Zipcode | Phone Number | | Organization | | | | + +---------+ + + | EXTERNAL LAB | | | | + +---------+ + + CT Chest wo Contrast (05/26/2018 4:41 PM PDT) + + | Specimen | + + | | + + + + + | Impressions | Performed At | + + + | 1. Large right and small left pleural effusions. This results in | | | near complete collapse of the right lower and right middle lobes and | | | partial collapse of the right [...] CONTRAST CLINICAL INFORMATION: Pneumonia. | | | COMPARISON: XR CHEST 2 VIEW FRONTAL AND LATERAL (05/26/2018); XR CHEST | | | 2 Views (05/25/2018); PROCEDURE: Axial [...] Date/Time: 05/26/2018 4:55 PM | + + XR Chest 2 Vws (05/26/2018 3:59 PM PDT) + + | Specimen | + + | | + + + + + | Impressions | Performed At | + + + | 1. Status post thoracentesis with reported approximately 1 L of | | | fluid removed. There is residual pleural effusion which is similar | | | to slightly decreased since the [...] TWO VIEWS CLINICAL INFORMATION: Post thoracentesis. | | | COMPARISON: XR CHEST 1 VIEW (05/26/2018); XR CHEST 2 Views | | | (05/25/2018); FINDINGS: Large right pleural [...] | representing atelectasis. Possible trace left pleural effusion. | | | Cardiac and mediastinal silhouettes within normal limits of size. | | | No focal bony lesions. | | + [...] Date/Time: 05/26/2018 4:19 PM | + + Culture, Body Fluid, Sterile, Smear, with Anaerobes (05/26/2018 3:13 PM PDT) + + | Specimen | + + | | + + + + + | Narrative | Performed At | + + + | Specimen Description ASCITES FLUID GRAM STAIN | EXTERNAL LAB | | STAIN PERFORMED ON CYTOSPIN | | | WBC'S SEEN | | | NO EPITHELIAL CELLS SEEN | | | NO ORGANISMS SEEN | | | CULTURE NO GROWTH 4 DAYS | | + + + + +---------+ + + | Performing | Address | City/State/Zipcode | Phone Number | | Organization | | | | + +---------+ + + | EXTERNAL LAB | | | | + +---------+ + + Culture, Body Fluid, Sterile, Smear, with Anaerobes (05/26/2018 2:12 PM PDT) + + | Specimen | + + | Body fluid sample | | (specimen) | + + + + + | Narrative | Performed At | + + + | Specimen Description PLEURAL FLUID GRAM STAIN | EXTERNAL LAB | | WBC'S SEEN | | | NO ORGANISMS SEEN | | | STAIN PERFORMED ON CYTOSPIN CULTURE | | | NO GROWTH 4 DAYS | | + + + + +---------+ + + | Performing | Address | City/State/Zipcode | Phone Number | | Organization | | | | + +---------+ + + | EXTERNAL LAB | | | | + +---------+ + + Cell Count, Body Fluid (05/26/2018 2:12 PM PDT) + + | Specimen | + + | Body fluid sample | | (specimen) | + + + + + | Narrative | Performed At | + + + | FLUID TYPE PLEURAL FLUID COLOR | EXTERNAL LAB | | SAMMIE APPEARANCE | | | CLOUDY RBC'S | | | 3000 CORRECTED RESULTS CALLED | | | TO DR. GLASS IN ED AT 1705 BY LGJ CORRECTED ON 05/26 AT 1702: | | | PREVIOUSLY REPORTED <[id number] TOTAL NUCLEATED CELLS | | | 253 CORRECTED RESULTS CALLED TO DR. GLASS IN ED AT | | | 1705 BY LGJ CORRECTED ON 05/26 AT 1702: PREVIOUSLY REPORTED 374 | | | NEUTROPHILS 22 | | | LYMPHOCYTES 8 | | | MONOCYTES/MACROPHAGES 65 Mesothelial | | | Cells 5 CELLS COUNTED | | | 100 Testing performed at [facility] | | | [facility];[place] [address] | | + + + + +---------+ + + | Performing | Address | City/State/Zipcode | Phone Number | | Organization | | | | + +---------+ + + | EXTERNAL LAB | | | | + +---------+ + + External Lab: Protein, Total (05/26/2018 2:12 PM PDT) + + | Specimen | + + | Body fluid sample | | (specimen) | + + + + + | Narrative | Performed At | + + + | FLUID TOTAL PROTEIN 4.2 This is | EXTERNAL LAB | | not a signals collector/analyst validated sample type for this method. No reference | | | ranges have been established. Testing performed at [facility], [address] | | | [place] [address] FLUID TP SOURCE | | | PLEURAL FLUID Testing performed at [facility];[address] | | | [facility];[place] [address] | | + + + + +---------+ + + | Performing | Address | City/State/Zipcode | Phone Number | | Organization | | | | + +---------+ + + | EXTERNAL LAB | | | | + +---------+ + + External Lab: Albumin (05/26/2018 2:12 PM PDT) + + | Specimen | + + | Body fluid sample | | (specimen) | + + + + + | Narrative | Performed At | + + + | FLUID ALBUMIN 2.3 This is | EXTERNAL LAB | | not a signals collector/analyst validated sample type for this method. No | | | reference ranges have been established. Testing performed at [facility], | | | [address] [place] [address] | | + + + + +---------+ + + | Performing | Address | City/State/Zipcode | Phone Number | | Organization | | | | + +---------+ + + | EXTERNAL LAB | | | | + +---------+ + + PH, Body Fluid (05/26/2018 2:12 PM PDT) + + | Specimen | + + | Body fluid sample | | (specimen) | + + + + + | Narrative | Performed At | + + + | FLUID PH 7.45 | EXTERNAL LAB | | Testing performed at [facility];[address] [place] [address];[place] [address] | | + + + + +---------+ + + | Performing | Address | City/State/Zipcode | Phone Number | | Organization | | | | + +---------+ + + | EXTERNAL LAB | | | | + +---------+ + + PATHOLOGY CONSULT REQUEST (05/26/2018 2:12 PM PDT) + + + + + + | Component | Value | Ref Range | Performed | Pathologist | | | | | At | Signature | + + + + + + | Pathologist | Comment: Review of | | EXTERNAL | | | Review 1 | pleural fluid collected | | LAB | | | | 05/26/2018. I agree | | | | | | with the cell counts. | | | | | | No acute inflammation | | | | | | is present. There is | | | | | | no evidence of | | | | | | malignancy. The | | | | | | history of ESRD and SOB | | | | | | are noted. Dr. Sanchez | | | | | | Marsha 05/28/2018 | | | | | | BES:rrcTesting performed | | | | | | at [facility];[address] [place] [address] | | | | | | [facility];[place] [address] | | | | + + + + + + + + | Specimen | + + | | + + + +---------+ + + | Performing | Address | City/State/Zipcode | Phone Number | | Organization | | | | + +---------+ + + | EXTERNAL LAB | | | | + +---------+ + + Procalcitonin (05/26/2018 12:14 PM PDT) + + + + + + | Component | Value | Ref Range | Performed | Pathologist | | | | | At | Signature | + + + + + + | PROCALCITON | 0.56 (H)Comment: | ng/mL | EXTERNAL | | [...] | | | | | at [facility];[address] [place] [address] | | | | | | [facility];[place] [address] | | | | + + + + + + + + | Specimen | + + | | + + + +---------+ + + | Performing | Address | City/State/Zipcode | Phone Number | | Organization | | | | + +---------+ + + | EXTERNAL LAB | | | | + +---------+ + + HISTORICAL LAB PANEL RESULT (05/26/2018 12:14 PM PDT) + + + + + -+ | Component | Value | Ref Range | Performed | Pathologist | | | | | At | Signature | + + + + + -+ | WBC | 5.73 | 3.80 - 11.00 | EXTERNAL | | | | | K/uL | LAB | | + + + + + -+ | Non- | 3.32 (L) | 3.70 - 5.10 | EXTERNAL | | | Red Blood | | M/uL | LAB | | | Cells | | | | | | Counted | | | | | + + + + + -+ | Hemoglobin | 12.1 | 11.3 - 15.5 | EXTERNAL | | | | | g/dL | LAB | | + + + + + -+ | Hematocrit, | 36.1 | 34.0 - 46.0 % | EXTERNAL | | | POC | | | LAB | | + + + + + -+ | MCV | 108.7 (H) | 80.0 - 100.0 fl | EXTERNAL | | | | | | LAB | | + + + + + -+ | MCH | 36.3 (H) | 27.0 - 34.0 pg | EXTERNAL | | | | | | LAB | | + + + + + -+ | MCHC | 33.4 | 32.0 - 35.5 | EXTERNAL | | | | | g/dL | LAB | | + + + + + -+ | RDW-CV | 59.9 (H) | 37 - 53 fl | EXTERNAL | | | | | | LAB | | + + + + + -+ | Platelet | 151 | 150 - 400 K/uL | EXTERNAL | | | Count | | | LAB | | | Plasma | | | | | + + + + + -+ | MPV | 10.1 | fl | EXTERNAL | | | | | | LAB | | + + + + + -+ | Differentia | AUTOMATED | | EXTERNAL | | | l Type | | | LAB | | + + + + + -+ | % Segmented | 72.41 | % | EXTERNAL | | | | | | LAB | | | Neutrophils | | | | | + + + + + -+ | % | 19.04 | % | EXTERNAL | | | Lymphocytes | | | LAB | | + + + + + -+ | % Monocytes | 6.42 | % | EXTERNAL | | | | | | LAB | | + + + + + -+ | % | 1.13 | % | EXTERNAL | | | Eosinophils | | | LAB | | + + + + + -+ | % Basophils | 1.00 | % | EXTERNAL | | | | | | LAB | | + + + + + -+ | Absolute | 4.15 | 1.90 - 7.40 | EXTERNAL | | | Segmented | | K/uL | LAB | | | Neutrophils | | | | | + + + + + -+ | Absolute | 1.09 | 1.00 - 3.90 | EXTERNAL | | | Lymphocytes | | K/uL | LAB | | + + + + + -+ | Absolute | 0.37 | 0.00 - 0.80 | EXTERNAL | | | Monocytes | | K/uL | LAB | | + + + + + -+ | Absolute | 0.06 | 0.00 - 0.50 | EXTERNAL | | | Eosinophils | | K/uL | LAB | | + + + + + -+ | Absolute | 0.06 | 0.00 - 0.10 | EXTERNAL | | | Basophils | | K/uL | LAB | | + + + + + -+ | RBC | 2+Comment: MACRO | | EXTERNAL | | | Morphology | | | LAB | | + + + + + -+ | Platelet | ADEQUATE | | EXTERNAL | | | Estimate | | | LAB | | + + + + + -+ | Na | 140 | 135 - 145 | EXTERNAL | | | | | mmol/L | LAB | | + + + + + -+ | K | 4.6 | 3.5 - 4.9 | EXTERNAL | | | | | mmol/L | LAB | | + + + + + -+ | Cl | 99 | 99 - 109 mmol/L | EXTERNAL | | | | | | LAB | | + + + + + -+ | CO2 | 27 | 23 - 32 mmol/L | EXTERNAL | | | | | | LAB | | + + + + + -+ | Anion Gap | 19 | 5 - 20 mmol/L | EXTERNAL | | | | | | LAB | | + + + + + -+ | Glucose, | 85 | 65 - 99 mg/dL | EXTERNAL | | | Fasting | | | LAB | | + + + + + -+ | BUN | 41 (H) | 8 - 25 mg/dL | EXTERNAL | | | | | | LAB | | + + + + + -+ | Creatinine | 7.89 (H) | 0.50 - 1.00 | EXTERNAL | | | | | mg/dL | LAB | | + + + + + -+ | BUN/Creatin | 5 | | EXTERNAL | | | ine Ratio | | | LAB | | + + + + + -+ | Calcium | 9.6 | 8.5 - 10.5 | EXTERNAL | | | | | mg/dL | LAB | | + + + + + -+ | Protein, | 7.2 | 6.3 - 8.2 g/dL | EXTERNAL | | | Total | | | LAB | | + + + + + -+ | Albumin | 4.3 | 3.6 - 5.0 g/dL | EXTERNAL | | | | | | LAB | | + + + + + -+ | Globulin | 2.9 | 1.3 - 4.9 g/dL | EXTERNAL | | | | | | LAB | | + + + + + -+ | A/G Ratio | 1.5 | 1.0 - 2.4 | EXTERNAL | | | | | | LAB | | + + + + + -+ | Bilirubin | 1.1 | 0.1 - 1.5 mg/dL | EXTERNAL | | | Total | | | LAB | | + + + + + -+ | ALP, | 120 (H) | 35 - 115 U/L | EXTERNAL | | | External | | | LAB | | + + + + + -+ | AST | 82 (H) | 10 - 45 U/L | EXTERNAL | | | | | | LAB | | + + + + + -+ | ALT | 64 | 10 - 65 U/L | EXTERNAL | | | | | | LAB | | + + + + + -+ | Estimated | 6 (L)Comment: GFR <60: [...] | | + + + + + -+ | CK, Total | 291 (H) | 30 - 240 U/L | EXTERNAL | | | | | | LAB | | + + + + + -+ | INR | 1.6Comment: REFERENCE | | [...] | | + + + + + -+ | aPTT, | 29 | 23 - 32 seconds | EXTERNAL | | | Patient | | | LAB | | + + + + + -+ | CK-MB | 7.8 (H) | 0.5 - 3.6 ng/mL | EXTERNAL | | | | | | LAB | | + + + + + -+ | CK-MB Index | 2.7Comment: CK INDEX | | EXTERNAL | | | | INTERPRETATION: | | LAB | | | | MMB ng/mL | | | | | | | | | | | |CK INDEX INTERPRETATION: | | | | | | MMB ng/mL | | | | | | | | | | + + + + + -+ + + | Specimen | + + | | + + + +---------+ + + | Performing | Address | City/State/Zipcode | Phone Number | | Organization | | | | + +---------+ + + | EXTERNAL LAB | | | | + +---------+ + + B Type Natriuretic Peptide (05/26/2018 12:14 PM PDT) + + + + + + | Component | Value | Ref Range | Performed | Pathologist | | | | | At | Signature | + + + + + + | BNP | 1,728.24 (H)Comment: | 0 - 100 pg/mL | EXTERNAL | | | | Testing performed at | | LAB | | | | [facility];[address] [facility] | | | | | | [facility];[place] [address] | | | | + + + + + + + + | Specimen | + + | | + + + +---------+ + + | Performing | Address | City/State/Zipcode | Phone Number | | Organization | | | | + +---------+ + + | EXTERNAL LAB | | | | + +---------+ + + XR Chest 1 Vw (05/26/2018 9:55 AM PDT) + + | Specimen | + + | | + + + + + | Narrative | Performed At | + + + | This is a non-reportable procedure without a radiologist report and | | | is used for image storage only | | + + + + + | Procedure Note | + + | Sonido Steele - 10/16/2018 9:43 PM PDT This is a non-reportable procedure | | without a radiologist report and isused for image storage only | + + documented in this encounter Visit Diagnoses + + | Diagnosis | + + | Chest pain, unspecified type | + + | Hypoalbuminemia Other disorders of plasma protein metabolism | + + | Anemia in ESRD (end-stage renal disease) (HCC) Anemia in chronic kidney disease | + + | End-stage renal disease on hemodialysis (HCC) End stage renal disease | + + | Pleural effusion on right Unspecified pleural effusion | + + | Other ascites | + + | Acute respiratory distress Other pulmonary insufficiency, not elsewhere classified | + + | Hyperkalemia Hyperpotassemia | + + | Hyperphosphatemia Disorders of phosphorus metabolism | + + | At high risk for electrolyte imbalance | + + | Acute systolic CHF (congestive heart failure) (HCC) | + + documented in this encounter
--- OUTSIDE RECORDS SUMMARY | ~2019-12-25 | XMS | Encounter Summary ---
Demographics + + + | Address | [address] | | | [place] [address] | + + + | Home Phone [...] Author | [facility] | | | and [place] | + + + | Organization | [facility] | | | and [...] Team Providers + +------+ + | Care Mathematician Research Name | Role | Phone | [...] | +--------+ + + + + | 07/03/ | Telephone | [facility]ATH[facility] BURKETT | Meño Tran | Kidney Transplant | | 2019 | | [facility] | MD Linda [address] | Pre-evaluation | | | | KIDNEY TRANSPLANT | [address], | | | | | [address] [place] | [place] [address] | | | | | [address] [place] | [phone] | | | | | [address] | | | | | | [phone] | | | +--------+ + + + [...] + documented as of this encounter Progress Raquel Aliceasabrina Roro L - 07/03/2018 3:12 PM PDTReferral We received another referral from [facility] today. However, we had clos ed out Dara's referral on 06/13/18 because she didn't have her medicinal marijuana card for her current use of marijuana edibles. I called her to see if she now has her marijuana medi cinal card, and she doesn't yet so I let her know that she won't be able to be re-referred u ntil she has that card. I also called the Fina [facility]row addiction social worker, and let her know t kimberly Diamond can be re-referred after she has her marijuana medicinal card. Electronically sig carlos by Roro Myles at 07/03/2018 3:17 PM PDTdocumented in this encounter Plan of Treatment Not on filedocumented as of this encounter Visit Diagnoses Not on filedocumented in this encounter"
--- OUTSIDE RECORDS SUMMARY | ~2019-12-25 | XMS | Encounter Summary ---
Demographics + + + | Address | [address] | | | [place] [address] | + + + | Home Phone [...] + + | Author | [facility] | | | and [place] | + + + | Organization | [facility] | | | [...] Team Providers + +------+ + | Care Security Agent Name | Role | Phone | + +------+ + | Jonathan Alonso MD | PCP | | + +------+ + Reason for Visit + + + | Reason | Comments | + + + | Chest Pain | | + + + | Shortness of Breath | | + + + Encounter Details +--------+ + + + + | Date | Type | Department | Care Team | Description | +--------+ + + + + | 04/18/ | Hospital | [facility] | French Alexandre DO | ESRD needing | | 2020 - | Encounter | [facility] | [address] | dialysis ([facility]) | | | | CARE FLOOR 8 [address] | [facility] [address] [place] [address], | (Primary Dx); | | 04/23/ | [address] | [place] [address] | Hypervolemia, | | 2019 | | [place], [place] | [phone] | unspecified | | | | [address] | | hypervolemia type; | | | | [phone] | Daniela Lara MD | Noncompliance with | | | | | [address] | renal dialysis | | | | | [place] [address] | (HCC); | | | | | [phone] | Costochondritis; | | | | | | Recurrent right | | | | | Arash Bonilla MD | pleural effusion; | | | | | [address] | Acute on chronic | | | | | [place] [address] | combined systolic | | | | | [phone] | and diastolic CHF | | | | | | (congestive heart | | | | | | failure) ([facility]); At | | | | | | high risk for | | | | | | electrolyte | | | | | | imbalance; 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 | | | | | | failure ([facility]); ESRD | | | | | | on hemodialysis | | | | | | ([facility]); Hyperkalemia; | | | | | | Anemia in ESRD | | | | | | (end-stage renal | | | | | | disease) ([facility]); | | | | | | Hyperphosphatemia; | | | | | | Uncontrolled | | | | | | hypertension; | | | | | | Hypertension, | | | | | | unspecified type | +--------+ + + + + Social [...] + + + | Blood Pressure | 103/57 | 04/23/2019 10:55 AM | | | | | PST | | + + + + + | Pulse | 70 | 04/23/2019 10:55 AM | | | | | PST | | + + + + + | Temperature | 36.9 C (98.5 F) | 04/23/2019 10:55 AM | | | | | PST | | + + + + + | Respiratory Rate | 18 | 04/23/2019 10:55 AM | | | | | PST | | + + + + + | Oxygen Saturation | 98% | 04/23/2019 10:55 AM | | | | | PST | | + + + + + | Inhaled Oxygen | - | - | | | Concentration | | | | + + + + + | Weight | 72.1 kg (158 lb 15.2 | 04/22/2019 12:48 PM | | | | oz) | PST | | + + + + + | Height | 170.2 cm (5' 7") | 04/18/2019 5:07 PM | | | | | PST | | + + + + + | Body Mass Index | 24.9 | 04/18/2019 5:07 PM | | | | | PST | | + + + + + documented in this encounter Functional Status + + + + | Functional Status | Response | Date of Assessment | + + + + | Are you deaf or do you have serious | No | 04/18/2019 | | difficulty hearing? | | | + + + + | Are you blind or do you have serious | No | 04/18/2019 | | difficulty seeing, even when wearing | | | | glasses? | | | + + + + | Do you have serious difficulty walking or | No | 04/18/2019 | | climbing stairs? (5 years old or older) | | | + + + + | Do you have difficulty dressing or bathing? | No | 04/18/2019 | | (5 years old or older) | | | + + + + | Because of a physical, mental, or emotional | No | 04/18/2019 | | condition, do you have difficulty [...] physical, mental, or emotional | No | 04/18/2019 | | condition, do you have serious difficulty | | | | concentrating, remembering, or making | | | | decisions? (5 years old or older) | | | + + + + documented as of this encounter Discharge Summaries Arash Bonilla MD - 04/23/2019 11:09 AM PSTFormatting of this note might be different fr om the original. [facility]: Hospitalist Discharge Summary Patient Name: Dara Weldon Date of Admission: 04/18/2019 Date of Discharge: 04/23/2019 Discharge Provider: Arash Bonilla MD Discharge Diagnoses: Acute on chronic combined systolic and diastolic congestive heart failure in patient with E SRD, decompensated due to missing dialysis treatment and uncontrolled hypertension. Large right pleural effusion, secondary to CHF, status post thoracentesis twice this day, 1 .5 return removed and second time 1 L removed. Fluid looks transudative, no clinical indic ation of infection Principal Problem: Chronic combined systolic and diastolic heart failure Active Problems: ESRD on hemodialysis Noncompliance Uncontrolled hypertension Recurrent right pleural effusion Acute respiratory distress History of Henoch-Schonlein purpura Anemia in ESRD (end-stage renal disease) Secondary hyperparathyroidism At high risk for electrolyte imbalance Dilated cardiomyopathy Moderate to severe pulmonary hypertension Pleural effusion, not elsewhere classified Pulmonary edema with congestive heart failure with reduced left ventricular function Resolved Problems: * No resolved hospital problems. * BRIEF HISTORY OF PRESENTATION: Dara Weldon is a 24 y.o. 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 Supposed to be on dialysis Monday, but she has been noncompliant and missing dialysis treatments. History of hypertension, anemia seco ndary to ESRD, anxiety admitted with acute on chronic CHF. Blood pressure found to be eleva wilmer and also had hyperkalemia, large right pleural effusion. HOSPITAL COURSE: Patient was admitted to hospitalist service with CHF decompensation causing fluid overload, uncontrolled hypertension, mild hyperkalemia and large right pleural effusion. She receive d daily dialysis for 4 days. Removed fluid and CHF improved. For right large pleural effus ion, underwent thoracentesis on 04/19/2019 and 1500 mL removed, underwent second right thorac entesis for moderate pleural effusion and removed 1 L on 04/23/2019. Clinically no indicatio n of infection. Fluid is transudative due to CHF and ESRD patient. Blood pressure monitore d. Symptomatically, patient had complain of right pleuritic chest pain, headache on and off, a nd frequent nausea. Patient states that nausea can happen when she has fluid overload. She was given PRN Dilaudid, PRN Phenergan and PRN [place]. Gradually her symptoms are improved. At home she wears 1 to 2 L oxygen via nasal cannula, at discharge she was on 1 L nasal jas sugar. Uncontrolled hypertension and hypertensive urgency-thought to be mostly triggered by anxiet y and stress. I have noted blood pressure improved with control of nausea and pain as well as dialysis. Continue Coreg and valsartan. At day of discharge blood pressure readings are 103/57 and 140/78. Initially there was concern for ascites, I have examined her daily and abdomen does look mi nimally distended, non-tense, clinically if there is any ascites it would be small amount, s o no paracentesis planned. Troponin mild and flat trend elevation secondary to ESRD, no acute coronary syndrome. DISCHARGE EXAM Vital Signs: BP 103/57 | Pulse 70 | Temp 36.9 C (98.5 F) (Oral) | Resp 18 | Ht 1.702 m (5' 7") | Wt 72.1 kg (158 lb 15.2 oz) | SpO2 98% | No | BMI 24.90 kg/m General Alert oriented x 3, no distress HEENT EOMI, moist mucus membranes of mouth NECK Supple, No JVD, no lymphadenopathy CVS S1S2 Regular, no murmer Respiratory fine basal crackles, diminished basal airflow. Abdomen soft, non-tender, Bowel sounds present Extremities mild pitting bilateral legs edema, No cyanosis Neurologically Normal speech, non-focal intact exam, power 5/5 all Extremities Psychiatrically Normal mood, flat affect Skin warm, good turgor DATA No results found for this or any previous visit (from the past 24 hour(s)). Lab Results Component Value Date CKMB 6.3 (H) 04/22/2019 TROPONIN 0.073 (H) 04/22/2019 Results for orders placed or performed during the hospital encounter of 04/18/19 ECG 12 lead Result Value Ref Range INTERPRETATION TEXT Normal sinus rhythm Nonspecific T wave abnormality Abnormal ECG Confirmed by Maurice Bowers MD ([id number]) on 04/22/2019 12:26:15 PM Lab Results Component Value Date IRON 81 01/24/2019 TIBC 246 (L) 01/24/2019 FERRITIN 805 (H) 01/24/2019 Lab Results Component Value Date TSH 1.270 05/28/2018 No results found for: HBA1C Microbiology Microbiology Results (Last 14 Days by Collected Date with Culture/Sensitivity) No results found for the last 336 hours. Radiology Xr Chest Inspiration And Expiration Result Date: 04/19/2019 XR CHEST INSPIRATION AND EXPIRATION CLINICAL INFORMATION: Post thoracentesis 1.5 L removed from right. COMPARISON: XR CHEST 2 VIEWS (04/18/2019); XR CHEST AP PORTABLE (01/24/2019); FIN DINGS: No pneumothorax after right-sided thoracentesis. Interval decrease in a now small to moderate right-sided effusion, previously large. Clear left lung. No left-sided effusion or pneumothorax. Unchanged cardiomegaly.. 1. No pneumothorax. 2. Decrease in now small to moderate right-sided effusion. Signed by: Kodi fitch M.D., David Sign Date/Time: 04/19/2019 12:29 PM Us Guided Thoracentesis Wo Chest Tube Result Date: 04/19/2019 ULTRASOUND GUIDED RIGHT THORACENTESIS CLINICAL INFORMATION: Symptomatic large right pleural effusion. PROCEDURE: Prior to the procedure, risks and benefits were explained to the patie nt and informed written and verbal consent obtained. Patient was placed in upright position and location adjacent to pleural fluid marked on the skin using ultrasound guidance and the area prepped and draped in the usual sterile fashion. Using lidocaine for local anesthesia, the pleural space is punctured with an 5-Bangladeshi thoracentesis catheter. Fluid is aspirated w ithout complication. The patient tolerated the procedure well. No immediate complications. E stimated Blood Loss: Minimal. Uncomplicated thoracentesis. 1,500 ml of clear yellow fluid was removed. Dictated by: Barney moser P.A.-C, Nicole Signed by: Eliza Galvan David Sign Date/Time: 04/19/2019 3:52 PM The ra diologist has reviewed the images and edited/approved the report. For interventional procedu res, the signing radiologist was present for the esquivel portions of the exam. Xr Chest 1 Vw Result Date: 04/22/2019 CHEST ONE VIEW CLINICAL INFORMATION: Congestive heart failure and right plural effusion. CO MPARISON: XR CHEST INSPIRATION AND EXPIRATION (04/19/2019); XR CHEST 2 VIEWS (04/18/2019); XR CHEST AP PORTABLE (01/24/2019); FINDINGS: Mild to moderate cardiac enlargement. Right heart border is not well defined. Increasing moderate right pleural effusion. Persistent infilt rate in the right mid to lower lung zone. Left lung is clear. No pneumothorax. 1. Persistent mild to moderate cardiac enlargement, with persistent right mid to lower lung zone infiltrate or atelectasis, with increasing moderate right pleural effusion. Signed by: Eliza Bustos Shawn Sign Date/Time: 04/22/2019 8:20 AM Xr Chest 2 Vws Result Date: 04/18/2019 CHEST TWO VIEWS CLINICAL INFORMATION: Chest pain COMPARISON: XR CHEST AP PORTABLE (01/25/20); XR CHEST 2 VIEWS (01/23/2019); XR CHEST PA AND LATERAL (01/09/2019); FINDINGS: Increase in now large right pleural effusion with associated right lung atelectasis. No left-sided e ffusion. No pneumothorax. Cardiomediastinal silhouette is normal. Increased, now large right pleural effusion with associated atelectasis.. Signed by: Eliza Galvan, Florian Sign Date/Time: 04/18/2019 3:29 PM Disposition: home Condition: Stable Code Status: Full Code No discharge procedures on file. Follow up: Jonathan Alonso MD [address] [place] [address] In 2 weeks Discharge Medications New Medications Details HYDROcodone-acetaminophen 5-325 mg per tablet Take 1 tablet by mouth every 6 hours as needed. aka: NORCO Changed Medications Details carvedilol 12.5 mg tablet Take 1 tablet by mouth 2 times daily. What changed: medication strength how much to take aka: COREG doxercalciferol 2 mcg/mL injection Inject 0.5 mLs into the vein Three times a week. Per dialysis clinic protocol What changed: how much to take aka: HECTOROL promethazine 25 mg tablet Take 1 tablet by mouth every 8 hours as needed. What changed: What Changed: Instructions aka: PHENERGAN Unchanged Medications Details albuterol 90 mcg/puff inhaler Inhale 2 puffs into the lungs every 6 hours as needed for Wheezing. citalopram 20 mg tablet Take 1 tablet [...] lungs 2 times daily. aka: FLOVENT HFA ondansetron 4 mg tablet Take 4 mg by mouth 3 (three) times daily as needed for Nausea. aka: ZOFRAN pantoprazole 40 mg tablet Take 40 mg by mouth every morning before breakfast. aka: PROTONIX PARSABIV 2.5 mg/0.5 mL injection Generic drug: etelcalcetide Inject 2.5 mg into the vein Three times a week. sevelamer carbonate 800 mg tablet Take 2 tablets by mouth 3 (three) times daily with meals and 2 tablet with snacks twice da kamron aka: RENVELA valsartan 40 mg tablet Take 1 tablet by mouth Daily. aka: DIOVAN VENOFER 20 mg/mL injection Generic drug: iron sucrose Inject 2.5 mLs into the vein Once a week. Discharge took 34 minutes, to include final examination, discussion of admission, and prepa ration of prescriptions, instructions for on-going care, follow-up and documentation of disc harge summary. Arash Bonilla MD 04/23/2019 11:09 AM documented i n this encounter Discharge Instructions Instructions Arash Bonilla MD - 04/23/2019Please do not miss any dialysis F/U with PCP 2 week AttachmentsThe following attachments cannot be sent through Care Everywhere.Acetaminophen; Hydrocodone tablets or capsules (Kiswahili)documented in this encounter Medications at Time of [...] tablet by | 60 | 0 | /18/20 | | | 12.5 mg tablet | mouth 2 times daily. | tablet | | 20 | | + + + +---------+ + + | clonazePAM | Take 0.5 tablets by | 3 | 0 | /18/20 | | | (KLONOPIN) 0.5 mg | [...] | | | | | renal disease) ([facility]) | protocol | | | | [...] | | Take 1 tablet by | 20 | 0 | 04/23/19 | | | HYDROcodone-acetamin | mouth every 6 hours | tablet | | 20 | 0 | | ophen (NORCO) 5-325 | as needed. | | | | | | mg [...] documented as of this encounter Progress Notes Antonio Benjamin MD - 04/23/2019 11:20 AM PSTFormatting of this note might be different from t he original. [id number]/8105-01 LOS: 5 days Dara Weldon is a 24 y.o. woman with oliguric ESRD who follows up with Dr. Jonathan Alonso MD as primary care provider. 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 She is historically non adherent to dialysis/dietary fluid/K/Po4/ Na restriction. She is normally dialyzed on a Monday, Monday, Monday schedule at [facility] using left upper extremity AV fistula. She used to see Dr. Trent Camp but switched to Dr. Anguiano. She also has combined diastolic/systolic congestive heart failure and was recently hospital ized at [facility] with hypervolemia and right pleural effusion (12/10/18-12/14/18). She has not been adherent to her dialysis prescription (emotional reasons). Lab work showed metabolic acidosis/hyperkalemia. Nephrology consultation was requested by Dr. Webber for evaluation and management of ESRD Chronic Severe Associated with: fluid electrolyte acid base imbalances including hyperkalemia/metabolic a cidosis. Assess need for hd/uf Seen and examined Plan for R thoracocentesis today Feels ok, appetite good No cp, n, v, d, fever, cramps. dizziness Patient's old records and labs were reviewed in detail and summarized. MEDS: Reviewed Examination: Vitals as noted BP 103/57 | Pulse 70 | Temp 36.9 C (98.5 F) (Oral) | Resp 18 | Ht 1.702 m (5' 7") | Wt 72.1 kg (158 lb 15.2 oz) | SpO2 98% | No | BMI 24.90 kg/m General appearance: sitting in the bed comfortably Heent: +ve pale conjunctiva Lungs: decrease bs at Right base, no respiratory distress. CV: s1 s2 no rub Abdomen: Soft, non-tender; Extremities: No peripheral edema Skin: no rash noted Psych: Pleasant demeanor. Neurologic: Alert, awake and oriented to person, place and time. No asterixis. Dialysis access: Left UE AVF +ve thrill/ bruit MEDS: REVIEWED carvedilol 12.5 mg Oral BID citalopram 20 mg Oral Daily epoetin jenna-epbx 4,000 Units Intravenous With each dialysis heparin (dialysis) 2,000 Units Intravenous With each dialysis heparin 5,000 Units Subcutaneous 2 times per day pantoprazole 40 mg Oral QAM AC sevelamer carbonate 1,600 mg Oral See Admin Instructions valsartan 40 mg Oral Daily Data evaluation: Lab Results Component Value Date BUN 28 (H) 04/22/2019 EGFR 8 (L) 04/22/2019 NA 139 04/22/2019 K 4.2 04/22/2019 CL 101 04/22/2019 CO2 32 04/22/2019 PHOS 8.4 (H) 04/18/2019 MG 2.2 01/26/2019 HGB 10.6 (L) 04/19/2019 Lab Results Component Value Date HGB 10.6 (L) 04/19/2019 HGB 11.6 04/18/2019 HGB 9.5 (L) 01/26/2019 FERRITIN 805 (H) 01/24/2019 Lab Results Component [...] plan: 1. Hypervolemia with congestive heart failure due to non complaince 2. Suboptimally controlled hypertension (Stage 2) 3. End-stage renal disease on hemodialysis 4. Nonadherence to dialysis prescription 5. IAG metabolic acidosis 6. Hyperkalemia 7. Recurrent right pleural effusion 8. Anemia in ESRD 9. Hyperphosphatemia She has oliguric ESRD as per PMH who is admitted with recurrent hypervoelmia/pleural effusi on with non adherence to dialysis prescription/dietary salt/fluid non adherence. Hyperkalemia ESRD is severe and established. Access is working OK. No need for hd/uf today from fluid electrolyte acid base balance point of view Assess daily need for hd/uf Plan for hd/uf in am epogen to keep hgb 10-11 Increase protein intake Low k diet Low p diet/ continue renvela with meals 2 gm Na, 2 gm K, 1 gm PO4, 1 gm/kg protein diet. Please dose all medications for an eGFR of less than 15 ml/min/1.73 m2. NSAIDS/SUAREZ 2 inhibitors should be avoided. Aluminum/magnesium containing antacids and magne sium/phosphate containing enemas should be avoided. Fluid should be restricted to less than 1.2 L in a 24 hr period. Strict I/O should be done. ADD: S/p R thoracocentesis 1000 MLS REMOVED today without complication Antonio Benjamin MD 04/23/2019 She was seen earlier in the day and charting was completed later after rounds. Dictation software, [employer], was used which may contain error for similar sounding words. Pe rsonal communication is requested for any clarification. Also please do not construe any information/orders from unsigned notes. Recommendations are solely recommendations and not orders (unless explicitly stated so) and primary ordering authority is with primary team. Prognosis is guarded in view of multiple comorbid illnesses and ESRD including but not limi iwlmer to . Arash Perez MD - 0 04/22/2019 12:49 PM PST [facility]: Hospitalist Progress Note Hospital Day: LOS: 4 days Patient Summary: 24-year-old female, ESRD on dialysis, reason for renal failure docume nted was HSP vasculitis. Supposed to be on dialysis Monday, but she has be en noncompliant and missing dialysis treatments. History of hypertension, anemia secondary to ESRD, anxiety admitted with acute on chronic CHF. Blood pressure found to be elevated an d also had hyperkalemia, large right pleural effusion. 04/19/[id number] thoracentesis done and 1500 mL fluid removed Receiving HD Subjective and overnight events : Complain of right-sided chest pain. Complain of mil d shortness of breath. This morning she did not want to take [place], and asked for Dilaudid. Receiving dialysis currently. Explained patient that there is some reaccumulation of righ t-sided pleural effusion, will plan thoracentesis again tomorrow, she agreed with this plan Scheduled Medications carvedilol 12.5 mg Oral BID citalopram 20 mg Oral Daily epoetin jenna-epbx 4,000 Units Intravenous With each dialysis heparin (dialysis) 2,000 Units Intravenous With each dialysis heparin 5,000 Units Subcutaneous 2 times per day pantoprazole 40 mg Oral QAM AC sevelamer carbonate 1,600 mg Oral See Admin Instructions valsartan 40 mg Oral Daily Current Facilty-Administered PRN Medications Ordered in Epic Medication Dose Route Frequency Provider Last Rate Last Dose acetaminophen (TYLENOL) tablet 650 mg 650 mg Oral Q4H PRN Daniela Lara MD 650 mg at 04/18/192051 albumin 25% IVPB 12.5 g 12.5 g Intravenous Dialysis - PRN Cliff Duarte MD albuterol-ipratropium 2.5-0.5 mg/3 mL nebulizer solution 3 mL 3 mL Nebulization RT Q6H PRN Daniela Lara MD clonazePAM (klonoPIN) tablet 0.25 mg 0.25 mg Oral Daily PRN Daniela Lara MD 0.25 mg at 04/18/192055 hydrALAZINE (APRESOLINE) injection 20 mg 20 mg Intravenous Q4H PRN Daniela Lara MD HYDROcodone-acetaminophen (NORCO) 5-325 mg per tablet 1 tablet 1 tablet Oral Q6H PRN Edil Bonilla MD 1 tablet at 04/22/19 0553 HYDROmorphone (DILAUDID) injection 0.5 mg 0.5 mg Intravenous Q6H PRN Arash Bonilla MD 0.5 mg at 04/22/19 0818 ondansetron (ZOFRAN ODT) disintegrating tablet 4 mg 4 mg Oral Q6H PRN Daniela Lara MD 4 mg at 04/21/19 1639 ondansetron (ZOFRAN) injection 4 mg 4 mg Intravenous Q6H PRN Daniela Lara MD 4 mg a t 04/20/19 1633 polyethylene glycol (MIRALAX) powder 17 g 17 g Oral Daily PRN Daniela Lara MD promethazine (PHENERGAN) tablet 12.5-25 mg 12.5-25 mg Oral Q6H PRN Arash Bonilla MD 25 mg at 04/21/19 2111 senna (SENOKOT) tablet 8.6 mg 8.6 mg Oral BID PRN Daniela Lara MD 8.6 mg at 0 0113 sodium chloride 0.9% (NS) bolus 100 mL 100 mL Intravenous Dialysis - PRN Antonio Benjamin MD sodium chloride 0.9% (NS) bolus 100 mL 100 mL Intravenous Dialysis - PRN Cliff Duarte MD Continuous Infusions heparin (dialysis) OBJECTIVE Vital Signs: BP 103/57 | Pulse 62 | Temp 37 C (98.6 F) | Resp 16 | Ht 1.702 m (5' 7") | Wt 75.5 kg (166 lb 7.2 oz) | SpO2 96% | No | BMI 26.07 kg/m Physical Exam General Alert oriented x 3, no distress HEENT EOMI, moist mucus membranes of mouth NECK Supple, No JVD, no lymphadenopathy CVS S1S2 Regular, no murmer Respiratory fine basal crackles, diminished basal airflow. Abdomen soft, non-tender, Bowel sounds present Extremities mild pitting bilateral legs edema, No cyanosis Neurologically Normal speech, non-focal intact exam, power 5/5 all Extremities Psychiatrically Normal mood, flat affect Skin warm, good turgor DATA Recent Results (from the past 24 hour(s)) Troponin I Result Value Ref Range Troponin I 0.073 (H) 0.00 - 0.04 ng/mL CK-MB Result Value Ref Range CK-MB 6.3 (H) 0.5 - 3.6 ng/mL CK Index UNABLE TO CALCULATE ECG 12 lead Result Value Ref Range VENTRICULAR RATE EKG 69 BPM ATRIAL RATE 69 BPM P-R INTERVAL 176 ms QRS DURATION 94 ms Q-T INTERVAL 398 ms Q-T INTERVAL (CORRECTED) 426 ms P WAVE AXIS 16 degrees QRS AXIS 19 degrees T AXIS 148 degrees INTERPRETATION TEXT Normal sinus rhythm Nonspecific T wave abnormality Abnormal ECG Confirmed by Maurice Bowers MD ([id number]) on 04/22/2019 12:26:15 PM Comprehensive Metabolic Panel Result Value Ref Range Na 139 135 - 145 mmol/L K 4.2 3.5 - 4.9 mmol/L Cl 101 99 - 109 mmol/L CO2 32 23 - 32 mmol/L Anion Gap 10 5 - 20 mmol/L Glucose 113 (H) 65 - 99 mg/dL BUN 28 (H) 8 - 25 mg/dL Creatinine 6.20 (H) 0.50 - 1.00 mg/dL BUN/Creatinine Ratio 5 Calcium 9.1 8.5 - 10.5 mg/dL Protein, Total 5.0 (L) 6.3 - 8.2 g/dL Albumin 3.2 (L) 3.6 - 5.0 g/dL Globulin 1.8 1.3 - 4.9 g/dL A/G Ratio 1.8 1.0 - 2.4 BILIRUBIN, TOTAL 0.5 0.1 - 1.5 mg/dL ALK PHOS 88 35 - 115 U/L AST 17 10 - 45 U/L ALT 17 10 - 65 U/L Estimated GFR 8 (L) >60 mL/min/1.73m2 No results for input(s): PHART, PO2ART, MPP0DLX, Z4ORAJLK, BEART in the last 168 hours. Recent Labs Lab 04/18/19 1332 INR 1.2 No results for input(s): TSH in the last 168 hours. Invalid input(s): T3FREE, FREET4 No results for input(s): TROPONINT in the last 168 hours. Invalid input(s): CKTOTAL, TROPONINI, CKMBINDEX Diet renal; 1200 ml fluid; Effective Now Intake/Output Summary (Last 24 hours) at 04/22/2019 1249 Last data filed at 04/21/20191999 Gross per 24 hour Intake 330 ml Output Net 330 ml Radiology Xr Chest 1 Vw Result Date: 04/22/2019 CHEST ONE VIEW CLINICAL INFORMATION: Congestive heart failure and right plural effusion. CO MPARISON: XR CHEST INSPIRATION AND EXPIRATION (04/19/2019); XR CHEST 2 VIEWS (04/18/2019); XR CHEST AP PORTABLE (01/24/2019); FINDINGS: Mild to moderate cardiac enlargement. Right heart border is not well defined. Increasing moderate right pleural effusion. Persistent infilt rate in the right mid to lower lung zone. Left lung is clear. No pneumothorax. 1. Persistent mild to moderate cardiac enlargement, with persistent right mid to lower lung zone infiltrate or atelectasis, with increasing moderate right pleural effusion. Signed by: Eliza Bustos Shawn Sign Date/Time: 04/22/2019 8:20 AM PROBLEM LIST Principal Problem: Chronic combined systolic and diastolic heart failure Active Problems: ESRD on hemodialysis Noncompliance Uncontrolled hypertension Recurrent right pleural effusion Acute respiratory distress History of Henoch-Schonlein purpura Anemia in ESRD (end-stage renal disease) Secondary hyperparathyroidism At high risk for electrolyte imbalance Dilated cardiomyopathy Moderate to severe pulmonary hypertension Pleural effusion, not elsewhere classified Pulmonary edema with congestive heart failure with reduced left ventricular function Resolved Problems: * No resolved hospital problems. * ASSESSMENT & PLAN : Acute on chronic combined systolic and diastolic congestive heart failure in patient with E SRD, this is likely decompensated due to missing dialysis treatment and uncontrolled hyperte nsion. She is getting HD/UF and fluid removal. She is getting it every day. Her fluid over load is improving. Large right pleural effusion, likely due to CHF, status post thoracentesis today. 1.5 L re moved. Pleural effusion is recurrent, is transudative. Chest x-ray revealed right moderate pleural effusion, discussed with nephrology Dr. Benjamin, he agrees with another thoracentesis prior to discharge. Have ordered thoracentesis for tomorrow, right-sided and therapeutic Hypertensive urgency, monitor blood pressure closely, on PRN hydralazine. Elevation can be triggered by anxiety and stress as well, trying to control her symptoms like pain and nause a with PRN IV medications. Continue Coreg and valsartan Hyerkalemia due to missed dialysis, resolved ESRD on dialysis, noncompliance with dialysis and she has missed treatments. receiving cole lysis again today Anemia due to ESRD Clinically abd distension is mild, nontense, clinically ascites is not large. Will re-eval this and decide if need sonogram need to eval ascites Disposition: Inpatient Code Status: Full Code Part of this record may have been copied from previous notes to maintain continuity of care . Portions of this chart may have been created with [employer] voice recognition software. Occasi onal wrong-word or sound-alike substitutions may have occurred due to the inherent [place] itations of voice recognition software. Please read the chart carefully and recognize, using context, where these substitutions have occurred. Arash Bonilla MD 04/22/2019 12:49 PM Antonio Torres MD - 0 04/21/2019 1:11 PM PST [id number]/[id number] LOS: 3 days Dara Constantino a 24 y.o.woman with oliguric ESRD who follows up with Dr. Addy Alonso, [facility] primary care provider. 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 She is historically non adherent to dialysis/dietary fluid/K/Po4/ Na restriction. She is normally dialyzed on a Monday, Monday, Monday schedule at [facility] using left upper extremity AV fistula. She used to see Dr. Trent Camp but switched to Dr Sujit Anguiano. She also has combined diastolic/systolic congestive heart failure and was recently hospital ized at [facility] with hypervolemia and right pleural effusion(12/10/18-12/14/18). She has not been adherent to her dialysis prescription (emotional reasons). Lab work showed metabolic acidosis/hyperkalemia. Nephrology consultation was requested by Dr. Webber for evaluation and management of ESRD Chronic Severe Associated with: fluid electrolyte acid base imbalances including hyperkalemia/metabolic acidosis. Assess need for hd/uf Seen and examined Feelsbetter, appetite good No sob No cp, n, v, d, fever, cramps. dizziness Patient's old records and labs were reviewed in detail and summarized. MEDS: Reviewed Examination: Vitals as noted, reviewed General appearance:lying in the bed comfortably, answering appropriately Head/Neck:Non-icteric sclera Lungs: decrease bs at bases CV: s1 s2 no rub Abdomen: Soft, non-tender; Extremities: No peripheral edema Skin: no rash noted Psych: Pleasant demeanor. Neurologic: Alert, awake and oriented to person, place and time. No asterixis. Dialysis access: Left UE AVF +ve thrill/ bruit Prior to Admission medications Medication Sig Start Date End Date Taking? Authorizing Provider albuterol-ipratropium 2.5-0.5 mg/3 mL SOLN Take 3 mLs by nebulization. Historical Provid MD ramonita carvedilol (COREG) 6.25 mg tablet Take 1 tablet by mouth 2 times daily. 01/10/19 Paty ann DO citalopram (CELEXA) 20 mg tablet Take 1 [...] tablet by mouth Daily. 01/22/19 Carolina Mahmood, Vital Signs: Reviewed BP 112/63 | Pulse 67 | Temp 37 C (98.6 F) (Oral) | Resp 18 | Ht 1.702 m (5' 7") | Wt 71.4 kg (157 lb 4.8 oz) | SpO2 94% | No | BMI 24.64 kg/m Data evaluation: Lab Results Component Value Date BUN 12 04/20/2019 EGFR 19 (L) 04/20/2019 NA 138 04/20/2019 K 4.3 04/20/2019 CL 99 04/20/2019 CO2 34 (H) 04/20/2019 PHOS 8.4 (H) 04/18/2019 MG 2.2 01/26/2019 HGB 10.6 (L) 04/19/2019 Lab Results Component Value Date HGB 10.6 (L) 04/19/2019 HGB 11.6 04/18/2019 HGB 9.5 (L) 01/26/2019 FERRITIN 805 (H) 01/24/2019 Lab Results Component Value Date ANIONGAP 9 04/20/2019 Ct Chest Abdomen Pelvis Wo Contrast 12/11/2018 [...] and plan: 1. Hypervolemia with congestive heart failuredue to non complaince 2. Suboptimally controlled hypertension (Stage 2) 3. End-stage renal disease on hemodialysis 4. Nonadherence to dialysis prescription 5. IAG metabolic acidosis 6. Hyperkalemia 7. Recurrent right pleural effusion 8. Anemia in ESRD 9. Hyperphosphatemia She has oliguric ESRD as per PMH who is admitted with recurrent hypervoelmia/pleural effusi on with non adherence to dialysis prescription/dietary salt/fluid non adherence. Hyperkalemia ESRD is severe and established. Access is working OK. No need for hd/uf today from fluid electrolyte acid base balance point of view Assess daily need for hd/uf Plan for hd/uf in am epogen to keep hgb 10-11 Increase protein intake Low k diet Low p diet/ renvela with meals 2 gm Na, 2 gm K, 1 gm PO4, 1 gm/kg protein diet. Please dose all medications for an eGFR of less than 15 ml/min/1.73 m2. NSAIDS/SUAREZ 2 inhibitors should be avoided. Aluminum/magnesium containing antacids and magne sium/phosphate containing enemas should be avoided. Fluid should be restricted to less than 1.2 L in a 24 hr period. Strict I/O should be done Antonio Benjamin MD 04/21/2019 She was seen earlier in the day and charting was completed later after rounds. Dictation software, [employer], was used which may contain error for [...] including but not limi wilmer to . 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 Supposed to be on dialysis Monday, but she has be en noncompliant and missing dialysis treatments. History of hypertension, anemia secondary to ESRD, anxiety admitted with acute on chronic CHF. Blood pressure found to be elevated an d also had hyperkalemia, large right pleural effusion. 04/19/[id number] thoracentesis done and 1500 mL fluid removed Recived HD 04/19, 04/20 Subjective and overnight events : Complain of mild right-sided chest pain again, pleur itic. Complain of intermittent headache, not a new complaint for patient. Complain of inte rmittent nausea which is also chronic issue for patient but worsened this admission. Denies dyspnea. Scheduled Medications carvedilol 12.5 mg Oral BID citalopram 20 mg Oral Daily epoetin jenna-epbx 4,000 Units Intravenous With each dialysis heparin 5,000 Units Subcutaneous 2 times per day pantoprazole 40 mg Oral QAM AC sevelamer carbonate 1,600 mg Oral See Admin Instructions valsartan 40 mg Oral Daily Current Facilty-Administered PRN Medications Ordered in Epic Medication Dose Route Frequency Provider Last Rate Last Dose acetaminophen (TYLENOL) tablet 650 mg 650 mg Oral Q4H PRN Daniela Lara MD 650 mg at 04/18/192051 albumin 25% IVPB 12.5 g 12.5 g Intravenous Dialysis - PRN Cliff Duarte MD albuterol-ipratropium 2.5-0.5 mg/3 mL nebulizer solution 3 mL 3 mL Nebulization RT Q6H PRN Daniela Lara MD clonazePAM (klonoPIN) tablet 0.25 mg 0.25 mg Oral Daily PRN Daniela Lara MD 0.25 mg at 04/18/192055 hydrALAZINE (APRESOLINE) injection 20 mg 20 mg Intravenous Q4H PRN Daniela Lara MD HYDROcodone-acetaminophen (NORCO) 5-325 mg per tablet 1 tablet 1 tablet Oral Q6H PRN Edil Bonilla MD 1 tablet at 04/21/19 0929 HYDROmorphone (DILAUDID) injection 0.5 mg 0.5 mg Intravenous Q6H PRN Arash Bonilla MD ondansetron (ZOFRAN ODT) disintegrating tablet 4 mg 4 mg Oral Q6H PRN Daniela Lara MD 4 mg at 04/20/19 1022 ondansetron (ZOFRAN) injection 4 mg 4 mg Intravenous Q6H PRN Daniela Lara MD 4 mg a t 04/20/19 1633 polyethylene glycol (MIRALAX) powder 17 g 17 g Oral Daily PRN Daniela Lara MD promethazine (PHENERGAN) tablet 12.5-25 mg 12.5-25 mg Oral Q6H PRN Arash Bonilla MD 25 mg at 04/21/19 0930 senna (SENOKOT) tablet 8.6 mg 8.6 mg Oral BID PRN Daniela Lara MD 8.6 mg at 0 0621 sodium chloride 0.9% (NS) bolus 100 mL 100 mL Intravenous Dialysis - PRN Cliff Duarte MD Continuous Infusions OBJECTIVE Vital Signs: BP 126/69 | Pulse 77 | Temp 36.9 C (98.4 F) (Oral) | Resp 18 | Ht 1.702 m (5' 7") | Wt 71.4 kg (157 lb 4.8 oz) | SpO2 92% | No | BMI 24.64 kg/m Physical Exam General Alert oriented x 3, no distress HEENT EOMI, moist mucus membranes of mouth NECK Supple, No JVD, no lymphadenopathy CVS S1S2 Regular, no murmer Respiratory diminished basal airflow right side, left lung clear Abdomen soft, non-tender, Bowel sounds present Extremities trace pitting bilateral legs edema, No cyanosis Neurologically Normal speech, non-focal intact exam, power 5/5 all Extremities Psychiatrically Normal mood, flat affect Skin warm, good turgor DATA Recent Results (from the past 24 hour(s)) Basic Metabolic Panel Result Value Ref Range Na 138 135 - 145 mmol/L K 4.3 3.5 - 4.9 mmol/L Cl 99 99 - 109 mmol/L CO2 34 (H) 23 - 32 mmol/L Anion Gap 9 5 - 20 mmol/L Glucose 104 (H) 65 - 99 mg/dL BUN 12 8 - 25 mg/dL Creatinine 3.03 (H) 0.50 - 1.00 mg/dL BUN/Creatinine Ratio 4 Calcium 8.9 8.5 - 10.5 mg/dL Estimated GFR 19 (L) >60 mL/min/1.73m2 No results for input(s): PHART, PO2ART, TXN2TPY, B2PSVBDY, BEART in the last 168 hours. Recent Labs Lab 04/18/19 1332 INR 1.2 No results for input(s): TSH in the last 168 hours. Invalid input(s): T3FREE, FREET4 No results for input(s): TROPONINT in the last 168 hours. Invalid input(s): CKTOTAL, TROPONINI, CKMBINDEX Diet renal; 1200 ml fluid; Effective Now Intake/Output Summary (Last 24 hours) at 04/21/2019 1039 Last data filed at 04/21/2019 0803 Gross per 24 hour Intake 120 ml Output 2000 ml Net -1880 ml Radiology Xr Chest Inspiration And Expiration Result Date: 04/19/2019 XR CHEST INSPIRATION AND EXPIRATION CLINICAL INFORMATION: Post thoracentesis 1.5 L removed from right. COMPARISON: XR CHEST 2 VIEWS (04/18/2019); XR CHEST AP PORTABLE (01/24/2019); FIN DINGS: No pneumothorax after right-sided thoracentesis. Interval decrease in a now small to moderate right-sided effusion, previously large. Clear left lung. No left-sided effusion or pneumothorax. Unchanged cardiomegaly.. 1. No pneumothorax. 2. Decrease in now small to moderate right-sided effusion. Signed by: Kodi fitch M.D., David Sign Date/Time: 04/19/2019 12:29 PM Us Guided Thoracentesis Wo Chest Tube Result Date: 04/19/2019 ULTRASOUND GUIDED RIGHT THORACENTESIS CLINICAL INFORMATION: Symptomatic large right pleural effusion. PROCEDURE: Prior to the procedure, risks and benefits were explained to the patie nt and informed written and verbal consent obtained. Patient was placed in upright position and location adjacent to pleural fluid marked on the skin using ultrasound guidance and the area prepped and draped in the usual sterile fashion. Using lidocaine for local anesthesia, the pleural space is punctured with an 5-Bangladeshi thoracentesis catheter. Fluid is aspirated w ithout complication. The patient tolerated the procedure well. No immediate complications. E stimated Blood Loss: Minimal. Uncomplicated thoracentesis. 1,500 ml of clear yellow fluid was removed. Dictated by: Barney moser P.A.-C, Nicole Signed by: Eliza Galvan David Sign Date/Time: 04/19/2019 3:52 PM The ra diologist has reviewed the images and edited/approved the report. For interventional procedu res, the signing radiologist was present for the esquivel portions of the exam. PROBLEM LIST Principal Problem: Chronic combined systolic and diastolic heart failure Active Problems: ESRD on hemodialysis Noncompliance Uncontrolled hypertension Recurrent right pleural effusion Acute respiratory distress History of Henoch-Schonlein purpura Anemia in ESRD (end-stage renal disease) Secondary hyperparathyroidism At high risk for electrolyte imbalance Dilated cardiomyopathy Moderate to severe pulmonary hypertension Pleural effusion, not elsewhere classified Pulmonary edema with congestive heart failure with reduced left ventricular function Resolved Problems: * No resolved hospital problems. * ASSESSMENT & PLAN : Acute on chronic combined systolic and diastolic congestive heart failure in patient with E SRD, this is likely decompensated due to missing dialysis treatment and uncontrolled hyperte nsion. She is getting HD daily and fluid removal. Further dialysis plan per nephrology Large right pleural effusion, likely due to CHF, status post thoracentesis today. 1.5 L re moved. Pleural effusion is recurrent, is transudative. Chest x-ray in a.m. Hypertensive urgency, monitor blood pressure closely, on PRN hydralazine. Elevation can be triggered by anxiety and stress as well, trying to control her symptoms like pain and nause a with PRN IV medications. Continue Coreg and valsartan, PRN hydralazine Hyerkalemia, resolved ESRD on dialysis, noncompliance with dialysis and she has missed treatments. receiving cole lysis again today Anemia due to ESRD Clinically abd distension is mild, nontense, clinically ascites is not large. Will re-eval this and decide if need sonogram need to eval ascites Noncompliance with dialysis treatment, she herself is saying that she will be much more com pliant with this. She knows that in future she will not be able to get renal transplant if she is noncompliant with dialysis Nausea, will switch her IV Phenergan to p.o. Cephalgia, was not controlled with p.o. medications so IV Dilaudid PRN ordered, reducing do se of IV Dilaudid today and adding PRN [place]. Medication changes plan discussed with patient and she is in agreement with current plan of care, questions answered Disposition: Inpatient Code Status: Full Code Part of this record may have been copied from previous notes to maintain continuity of care . Portions of this chart may have been created with [employer] recognition software. Occasi onal wrong-word or sound-alike substitutions may have occurred due to the inherent [place] itations of voice recognition software. Please read the chart carefully and recognize, using context, where these substitutions have occurred. 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 Supposed to be on dialysis Monday, but she has be en noncompliant and missing dialysis treatments. History of hypertension, anemia secondary to ESRD, anxiety admitted with acute on chronic CHF. Blood pressure found to be elevated an d also had hyperkalemia, large right pleural effusion. 04/19/[id number] thoracentesis done and 1500 mL fluid removed Recived HD 04/19, 04/20 Subjective and overnight events : Complain of mild right-sided chest pain, this improv es with pain medication. Currently no nausea, early today needing nausea medication. Says her nausea is worse when she has fluid overload. Per patient abdomen is slightly distended but not overtly. Denies abdominal pain. Scheduled Medications carvedilol 12.5 mg Oral BID citalopram 20 mg Oral Daily epoetin jenna-epbx 4,000 Units Intravenous With each dialysis heparin 5,000 Units Subcutaneous 2 times per day pantoprazole 40 mg Oral QAM AC sevelamer carbonate 1,600 mg Oral See Admin Instructions valsartan 40 mg Oral Daily Current Facilty-Administered PRN Medications Ordered in Epic Medication Dose Route Frequency Provider Last Rate Last Dose acetaminophen (TYLENOL) tablet 650 mg 650 mg Oral Q4H PRN Daniela Lara MD 650 mg at 04/18/192051 albumin 25% IVPB 12.5 g 12.5 g Intravenous Dialysis - PRN Cliff Duarte MD albuterol-ipratropium 2.5-0.5 mg/3 mL nebulizer solution 3 mL 3 mL Nebulization RT Q6H PRN Daniela Lara MD clonazePAM (klonoPIN) tablet 0.25 mg 0.25 mg Oral Daily PRN Daniela Lara MD 0.25 mg at 04/18/192055 hydrALAZINE (APRESOLINE) injection 20 mg 20 mg Intravenous Q4H PRN Daniela Lara MD HYDROmorphone (DILAUDID) injection 0.5 mg 0.5 mg Intravenous Q3H PRN Arash Bonilla MD 0.5 mg at 04/20/19 0612 ondansetron (ZOFRAN ODT) disintegrating tablet 4 mg 4 mg Oral Q6H PRN Daniela Lara MD 4 mg at 04/20/19 1022 ondansetron (ZOFRAN) injection 4 mg 4 mg Intravenous Q6H PRN Daniela Lara MD 4 mg a t 04/19/19 1608 polyethylene glycol (MIRALAX) powder 17 g 17 g Oral Daily PRN Daniela Lara MD promethazine (PHENERGAN) (IV ONLY) injection 6.25 mg 6.25 mg Intravenous Q6H PRN Oralia Bonilla MD 6.25 mg at 04/20/19 0612 senna (SENOKOT) tablet 8.6 mg 8.6 mg Oral BID PRN Daniela Lara MD sodium chloride 0.9% (NS) bolus 100 mL 100 mL Intravenous Dialysis - PRN Cliff Duarte MD Continuous Infusions OBJECTIVE Vital Signs: BP 128/65 | Pulse 83 | Temp 36.9 C (98.4 F) (Oral) | Resp 18 | Ht 1.702 m (5' 7") | Wt 76.6 kg (168 lb 14 oz) | SpO2 95% | No | BMI 26.45 kg/m Physical Exam General Alert oriented x 3, no distress HEENT EOMI, moist mucus membranes of mouth NECK Supple, No JVD, no lymphadenopathy CVS S1S2 Regular, no murmer Respiratory fine basal crackles, diminished basal airflow. Abdomen soft, non-tender, Bowel sounds present Extremities mild pitting bilateral legs edema, No cyanosis Neurologically Normal speech, non-focal intact exam, power 5/5 all Extremities Psychiatrically Normal mood, flat affect Skin warm, good turgor DATA Recent Results (from the past 24 hour(s)) Basic Metabolic Panel Result Value Ref Range Na 140 135 - 145 mmol/L K 4.4 3.5 - 4.9 mmol/L Cl 111 (H) 99 - 109 mmol/L CO2 22 (L) 23 - 32 mmol/L Anion Gap 11 5 - 20 mmol/L Glucose 178 (H) 65 - 99 mg/dL BUN 40 (H) 8 - 25 mg/dL Creatinine 1.93 (H) 0.50 - 1.00 mg/dL BUN/Creatinine Ratio 21 Calcium 9.3 8.5 - 10.5 mg/dL Estimated GFR 32 (L) >60 mL/min/1.73m2 No results for input(s): PHART, PO2ART, [id number], [id number], BEART in the last 168 hours. Recent Labs Lab 04/18/19 1332 INR 1.2 No results for input(s): TSH in the last 168 hours. Invalid input(s): T3FREE, FREET4 No results for input(s): TROPONINT in the last 168 hours. Invalid input(s): CKTOTAL, TROPONINI, CKMBINDEX Diet renal; 1200 ml fluid; Effective Now Intake/Output Summary (Last 24 hours) at 04/20/2019 1120 Last data filed at 04/19/2019 1710 Gross per 24 hour Intake Output 2499 ml Net -2499 ml Radiology Xr Chest Inspiration And Expiration Result Date: 04/19/2019 XR CHEST INSPIRATION AND EXPIRATION CLINICAL INFORMATION: Post thoracentesis 1.5 L removed from right. COMPARISON: XR CHEST 2 VIEWS (04/18/2019); XR CHEST AP PORTABLE (01/24/2019); FARAZ DINGS: No pneumothorax after right-sided thoracentesis. Interval decrease in a now small to moderate right-sided effusion, previously large. Clear left lung. No left-sided effusion or pneumothorax. Unchanged cardiomegaly.. 1. No pneumothorax. 2. Decrease in now small to moderate right-sided effusion. Signed by: Kodi fitch M.D., Florian Sign Date/Time: 04/19/2019 12:29 PM Us Guided Thoracentesis Wo Chest Tube Result Date: 04/19/2019 ULTRASOUND GUIDED RIGHT THORACENTESIS CLINICAL INFORMATION: Symptomatic large right pleural effusion. PROCEDURE: Prior to the procedure, risks and benefits were explained to the patie nt and informed written and verbal consent obtained. Patient was placed in upright position and location adjacent to pleural fluid marked on the skin using ultrasound guidance and the area prepped and draped in the usual sterile fashion. Using lidocaine for local anesthesia, the pleural space is punctured with an 5-Bangladeshi thoracentesis catheter. Fluid is aspirated w ithout complication. The patient tolerated the procedure well. No immediate complications. E stimated Blood Loss: Minimal. Uncomplicated thoracentesis. 1,500 ml of clear yellow fluid was removed. Dictated by: Barney moser P.A.-C, Nicole Signed by: Eliza Galvan David Sign Date/Time: 04/19/2019 3:52 PM The ra diologist has reviewed the images and edited/approved the report. For interventional procedu res, the signing radiologist was present for the esquivel portions of the exam. Xr Chest 2 Vws Result Date: 04/18/2019 CHEST TWO VIEWS CLINICAL INFORMATION: Chest pain COMPARISON: XR CHEST AP PORTABLE (01/25/20); XR CHEST 2 VIEWS (01/23/2019); XR CHEST PA AND LATERAL (01/09/2019); FINDINGS: Increase in now large right pleural effusion with associated right lung atelectasis. No left-sided e ffusion. No pneumothorax. Cardiomediastinal silhouette is normal. Increased, now large right pleural effusion with associated atelectasis.. Signed by: Eliza Galvan David Sign Date/Time: 04/18/2019 3:29 PM PROBLEM LIST Principal Problem: Chronic combined systolic and diastolic heart failure Active Problems: ESRD on hemodialysis Noncompliance Uncontrolled hypertension Recurrent right pleural effusion Acute respiratory distress History of Henoch-Schonlein purpura Anemia in ESRD (end-stage renal disease) Secondary hyperparathyroidism At high risk for electrolyte imbalance Dilated cardiomyopathy Moderate to severe pulmonary hypertension Pleural effusion, not elsewhere classified Pulmonary edema with congestive heart failure with reduced left ventricular function Resolved Problems: * No resolved hospital problems. * ASSESSMENT & PLAN : Acute on chronic combined systolic and diastolic congestive heart failure in patient with E SRD, this is likely decompensated due to missing dialysis treatment and uncontrolled hyperte nsion. She is getting HD and fluid removal Large right pleural effusion, likely due to CHF, status post thoracentesis today. 1.5 L re moved. Pleural effusion is recurrent, is transudative Hypertensive urgency, monitor blood pressure closely, on PRN hydralazine. Elevation can be triggered by anxiety and stress as well, trying to control her symptoms like pain and nause a with PRN IV medications. Continue Coreg and valsartan Hyerkalemia, resolved ESRD on dialysis, noncompliance with dialysis and she has missed treatments. receiving cole lysis again today Anemia due to ESRD Clinically abd distension is mild, nontense, clinically ascites is not large. Will re-eval this and decide if need sonogram need to eval ascites Disposition: Inpatient Code Status: Full Code Part of this record may have been copied from previous notes to maintain continuity of care . Portions of this chart may have been created with [employer] voice recognition software. Occasi onal wrong-word or sound-alike substitutions may have occurred due to the inherent [place] itations of voice recognition software. Please read the chart carefully and recognize, using context, where these substitutions have occurred. 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 Supposed to be on dialysis Monday, but she has be en noncompliant and missing dialysis treatments. History of hypertension, anemia secondary to ESRD, anxiety admitted with acute on chronic CHF. Blood pressure found to be elevated an d also had hyperkalemia, large right pleural effusion. 04/19/[id number] thoracentesis done and 1500 mL fluid removed Subjective and overnight events : right-sided thoracentesis done. Currently receivin g dialysis. This morning had headache did not improve with Tylenol and patient requested Di laudid, PRN IV Dilaudid ordered . Zofran not effective for nausea so Phenergan ordered. Sindy hamilton denies nausea or vomiting currently. Has chest discomfort on right side. Complain of dyspnea Scheduled Medications carvedilol 12.5 mg Oral BID citalopram 20 mg Oral Daily epoetin jenna-epbx 4,000 Units Intravenous With each dialysis heparin (dialysis) 2,000 Units Intravenous With each dialysis heparin 5,000 Units Subcutaneous 2 times per day pantoprazole 40 mg Oral QAM AC sevelamer carbonate 1,600 mg Oral See Admin Instructions valsartan 40 mg Oral Daily Current Facilty-Administered PRN Medications Ordered in Epic Medication Dose Route Frequency Provider Last Rate Last Dose acetaminophen (TYLENOL) tablet 650 mg 650 mg Oral Q4H PRN Daniela Lara MD 650 mg at 04/18/192051 albumin 25% IVPB 12.5 g 12.5 g Intravenous Dialysis - PRN Cliff Duarte MD albuterol-ipratropium 2.5-0.5 mg/3 mL nebulizer solution 3 mL 3 mL Nebulization RT Q6H PRN Daniela Lara MD clonazePAM (klonoPIN) tablet 0.25 mg 0.25 mg Oral Daily PRN Daniela Lara MD 0.25 mg at 04/18/192055 hydrALAZINE (APRESOLINE) injection 20 mg 20 mg Intravenous Q4H PRN Daniela Lara MD HYDROmorphone (DILAUDID) injection 0.5 mg 0.5 mg Intravenous Q3H PRN Arash Bonilla MD 0.5 mg at 04/19/19 1257 ondansetron (ZOFRAN ODT) disintegrating tablet 4 mg 4 mg Oral Q6H PRN Daniela Lara MD ondansetron (ZOFRAN) injection 4 mg 4 mg Intravenous Q6H PRN Daniela Lara MD 4 mg a t 04/19/19 1032 polyethylene glycol (MIRALAX) powder 17 g 17 g Oral Daily PRN Daniela Lara MD promethazine (PHENERGAN) (IV ONLY) injection 6.25 mg 6.25 mg Intravenous Q6H PRN Oralia Bonilla MD 6.25 mg at 04/19/19 1256 senna (SENOKOT) tablet 8.6 mg 8.6 mg Oral BID PRN Daniela Lara MD sodium chloride 0.9% (NS) bolus 100 mL 100 mL Intravenous Dialysis - PRN Cliff Duarte MD Continuous Infusions heparin (dialysis) 500 Units/hr (04/19/19 1352) OBJECTIVE Vital Signs: BP 134/84 | Pulse 83 | Temp 36.4 C (97.5 F) (Oral) | Resp 18 | Ht 1.702 m (5' 7") | Wt 80.5 kg (177 lb 7.5 oz) | SpO2 97% | No | BMI 27.80 kg/m Physical Exam General Alert oriented x 3, looking tired currently during dialysis and sleepy HEENT EOMI, moist mucus membranes of mouth NECK Supple, No JVD, no lymphadenopathy CVS S1S2 Regular, no murmer Respiratory fine right posterior crackles, diminished basal airflow. Abdomen soft, non-tender, Bowel sounds present Extremities mild pitting bilateral legs edema, No cyanosis Neurologically Normal speech, non-focal intact exam, power 5/5 all Extremities Psychiatrically Normal mood, flat affect Skin warm, good turgor DATA Recent Results (from the past 24 hour(s)) Basic Metabolic Panel Result Value Ref Range Na 137 135 - 145 mmol/L K 4.8 3.5 - 4.9 mmol/L Cl 95 (L) 99 - 109 mmol/L CO2 28 23 - 32 mmol/L Anion Gap 19 5 - 20 mmol/L Glucose 82 65 - 99 mg/dL BUN 38 (H) 8 - 25 mg/dL Creatinine 6.2 (H) 0.50 - 1.00 mg/dL BUN/Creatinine Ratio 6 Calcium 9.4 8.5 - 10.5 mg/dL Estimated GFR 8 (L) >60 mL/min/1.73m2 CBC with Differential Result Value Ref Range WBC 3.88 3.80 - 11.00 K/uL RBC 3.02 (L) 3.70 - 5.10 M/uL Hemoglobin 10.6 (L) 11.3 - 15.5 g/dL Hematocrit 34.1 34.0 - 46.0 % MCV 112.9 (H) 80.0 - 100.0 fl MCH 35.1 (H) 27.0 - 34.0 pg MCHC 31.1 (L) 32.0 - 35.5 g/dL RDW-SD 61.9 (H) 37 - 53 fl Platelet Count 122 (L) 150 - 400 K/uL MPV 11.5 fl Diff Type AUTOMATED % nRBC 0.0 0 /100WBC % Neutrophils 63.90 % IMMATURE GRANULOCYTE 0.30 % % Lymphocytes 17.00 % Monocyte % 4.90 % Eosinophils % 13.40 % Basophils % 0.50 % Neutrophils, Absolute 2.48 1.90 - 7.40 K/uL IMMATURE GRANS AB 0.01 0.00 - 0.07 K/uL Absolute Lymphocytes 0.66 (L) 1.00 - 3.90 K/uL Absolute Monocytes 0.19 0.00 - 0.80 K/uL Eosinophils, Absolute 0.52 (H) 0.00 - 0.50 K/uL Basophils, Absolute 0.02 0.00 - 0.10 K/uL Lactate Dehydrogenase Result Value Ref Range LDH TOTAL 254 (H) 120 - 246 U/L Protein, Total Result Value Ref Range Protein, Total 6.4 6.3 - 8.2 g/dL Lactate dehydrogenase, body fluid Result Value Ref Range Lactate Dehydrogenase, Body Fluid 98 U/L Cell Count, Body Fluid Result Value Ref Range Specimen Type THORACENTESIS FLUID Color YELLOW APPEARANCE HAZY BF Nucleated Cells 113 /mm3 BF RBC <2,000 /mm3 Neutrophils, Fluid 3 % BF % Lymphocytes 3 % BF Mononuclear Phagocytes % 88 % MESOTHELIAL CELLS 6 % Cells Counted 100 Protein, Body Fluid Result Value Ref Range Protein, Body Fluid 2.6 g/dL SOURCE THORACENTESIS FLUID No results for input(s): PHART, PO2ART, GNE6YCA, U3MXVBQN, BEART in the last 168 hours. Recent Labs Lab 04/18/19 1332 INR 1.2 No results for input(s): TSH in the last 168 hours. Invalid input(s): T3FREE, FREET4 No results for input(s): TROPONINT in the last 168 hours. Invalid input(s): CKTOTAL, TROPONINI, CKMBINDEX Diet renal; 1200 ml fluid; Effective Now Intake/Output Summary (Last 24 hours) at 04/19/2019 1447 Last data filed at 04/18/2019 2145 Gross per 24 hour Intake Output 2000 ml Net -2000 ml Radiology Xr Chest Inspiration And Expiration Result Date: 04/19/2019 XR CHEST INSPIRATION AND EXPIRATION CLINICAL INFORMATION: Post thoracentesis 1.5 L removed from right. COMPARISON: XR CHEST 2 VIEWS (04/18/2019); XR CHEST AP PORTABLE (01/24/2019); FARAZ HERNANDEZ: No pneumothorax after right-sided thoracentesis. Interval decrease in a now small to moderate right-sided effusion, previously large. Clear left lung. No left-sided effusion or pneumothorax. Unchanged cardiomegaly.. 1. No pneumothorax. 2. Decrease in now small to moderate right-sided effusion. Signed by: Kodi fitch M.D., David Sign Date/Time: 04/19/2019 12:29 PM Us Guided Thoracentesis Wo Chest Tube Result Date: 04/19/2019 ULTRASOUND GUIDED RIGHT THORACENTESIS CLINICAL INFORMATION: Symptomatic large right pleural effusion. PROCEDURE: Prior to the procedure, risks and benefits were explained to the patie nt and informed written and verbal consent obtained. Patient was placed in upright position and location adjacent to pleural fluid marked on the skin using ultrasound guidance and the area prepped and draped in the usual sterile fashion. Using lidocaine for local anesthesia, the pleural space is punctured with an 5-Bangladeshi thoracentesis catheter. Fluid is aspirated w ithout complication. The patient tolerated the procedure well. No immediate complications. E stimated Blood Loss: Minimal. Uncomplicated thoracentesis. 1,500 ml of clear yellow fluid was removed. Dictated by: Barney moser P.A.-C, Nicole The radiologist has reviewed the images and edited/approved the report. For interventional procedures, the signing radiologist was present for the esquivel portions of t he exam. Xr Chest 2 Vws Result Date: 04/18/2019 CHEST TWO VIEWS CLINICAL INFORMATION: Chest pain COMPARISON: XR CHEST AP PORTABLE (01/25/20); XR CHEST 2 VIEWS (01/23/2019); XR CHEST PA AND LATERAL (01/09/2019); FINDINGS: Increase in now large right pleural effusion with associated right lung atelectasis. No left-sided e ffusion. No pneumothorax. Cardiomediastinal silhouette is normal. Increased, now large right pleural effusion with associated atelectasis.. Signed by: Eliza Galvan David Sign Date/Time: 04/18/2019 3:29 PM PROBLEM LIST Principal Problem: Chronic combined systolic and diastolic heart failure Active Problems: ESRD on hemodialysis Noncompliance Uncontrolled hypertension Recurrent right pleural effusion Acute respiratory distress History of Henoch-Schonlein purpura Anemia in ESRD (end-stage renal disease) Secondary hyperparathyroidism At high risk for electrolyte imbalance Dilated cardiomyopathy Moderate to severe pulmonary hypertension Pleural effusion, not elsewhere classified Pulmonary edema with congestive heart failure with reduced left ventricular function Resolved Problems: * No resolved hospital problems. * ASSESSMENT & PLAN : Acute on chronic combined systolic and diastolic congestive heart failure in patient with E SRD, this is likely decompensated due to missing dialysis treatment and uncontrolled hyperte nsion. Large right pleural effusion, likely due to CHF, status post thoracentesis today. 1.5 L re moved. Pleural effusion is recurrent Hypertensive urgency, monitor blood pressure closely, on PRN hydralazine. Elevation can be triggered by anxiety and stress as well, trying to control her symptoms like pain and nause a with PRN IV medications. Continue Coreg and valsartan Hyerkalemia, receiving dialysis and expect this to resolve ESRD on dialysis, noncompliance with dialysis and she has missed treatments. Currently rec eiving dialysis. Nephrology consulted Anemia due to ESRD Labs ordered for a.m. Disposition: Inpatient Code Status: Full Code Part of this record may have been copied from previous notes to maintain continuity of care . Portions of this chart may have been created with [employer] voice recognition software. Occasi onal wrong-word or sound-alike substitutions may have occurred due to the inherent [place] itations of voice recognition software. Please read the chart carefully and recognize, using context, where these substitutions have occurred. Arash Bonilla MD 04/19/2019 2:47 PM Antonio Torres MD - 0 04/19/2019 9:39 AM PST [id number] LOS: 1 day Dara Weldon is a 24 y.o. woman with oliguric ESRD who follows up with Dr. Jonathan Alonso MD as primary care provider. 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 She is historically non adherent to dialysis/dietary fluid/K/Po4/ Na restriction. She is normally dialyzed on a Monday, Monday, Monday schedule at [facility] using left upper extremity AV fistula. She used to see Dr. Trent Camp but switched to Dr. Anguiano. She also has combined diastolic/systolic congestive heart failure and was recently hospital ized at [facility] with hypervolemia and right pleural effusion(12/10/18-12/14/18). She has not been adherent to her dialysis prescription (emotional reasons). Lab work showed metabolic acidosis/hyperkalemia. Nephrology consultation was requested by Dr. Webber for evaluation and management of ESRD Chronic Severe Associated with: fluid electrolyte acid base imbalances including hyperkalemia/metabolic a cidosis. Assess need for hd/uf Seen and examined Plan for R thoracocentesis today Feels ok, appetite good No cp, n, v, d, fever, cramps. dizziness Patient's old records and labs were reviewed in detail and summarized. MEDS: Reviewed Examination: Vitals as noted reviewed General appearance: lying in the bed in no distress Heent: +ve pale conjunctiva Lungs: decrease bs at Right base, no respiratory distress. CV: s1 s2 no rub Abdomen: Soft, non-tender; Extremities: No peripheral edema Skin: no rash noted Psych: Pleasant demeanor. Neurologic: Alert, awake and oriented to person, place and time. No asterixis. Dialysis access: Left UE AVF +ve thrill/ bruit Prior to Admission medications Medication Sig Start [...] Daily. 01/22/19 Carolina Mahmood DO Vital Signs: Reviewed BP 102/52 | Pulse 86 | Temp 36.4 C (97.6 F) (Oral) | Resp 18 | Ht 1.702 m (5' 7") | Wt 78 kg (171 lb 15.3 oz) | SpO2 92% | No | BMI 26.93 kg/m Data evaluation: Lab Results Component Value Date BUN 38 (H) 04/19/2019 EGFR 8 (L) 04/19/2019 NA 137 04/19/2019 K 4.8 04/19/2019 CL 95 (L) 04/19/2019 CO2 28 04/19/2019 PHOS 8.4 (H) 04/18/2019 MG 2.2 01/26/2019 HGB 10.6 (L) 04/19/2019 Lab Results Component Value Date HGB 10.6 (L) 04/19/2019 HGB 11.6 04/18/2019 HGB 9.5 (L) 01/26/2019 FERRITIN 805 (H) 01/24/2019 Lab Results Component Value Date ANIONGAP 19 04/19/2019 Ct Chest Abdomen Pelvis Wo Contrast 12/11/2018 [...] plan: 1. Hypervolemia with congestive heart failure due to non complaince 2. Suboptimally controlled hypertension (Stage 2) 3. End-stage renal disease on hemodialysis 4. Nonadherence to dialysis prescription 5. IAG metabolic acidosis 6. Hyperkalemia 7. Recurrent right pleural effusion 8. Anemia in ESRD 9. Hyperphosphatemia She has oliguric ESRD as per PMH who is admitted with recurrent hypervoelmia/pleural effusi on with non adherence to dialysis prescription/dietary salt/fluid non adherence. Hyperkalemia ESRD is severe and established. Access is working OK. Plan for hd/uf today, informed hd rn Assess daily need for hd/uf epogen to keep hgb 10-11 Increase protein intake Low k diet Low p diet/ continue renvela with meals 2 gm Na, 2 gm K, 1 gm PO4, 1 gm/kg protein diet. Please dose all medications for an eGFR of less than 15 ml/min/1.73 m2. NSAIDS/SUAREZ 2 inhibitors should be avoided. Aluminum/magnesium containing antacids and magne sium/phosphate containing enemas should be avoided. Fluid should be restricted to less than 1.2 L in a 24 hr period. Strict I/O should be done. Antonio Benjamin MD 04/19/2019 She was seen earlier in the day and charting was completed later after rounds. Dictation software, [employer], was used which may contain error for [...] including but not limi wilmer to . Antonio Torres MD - 04/18 8:00 PM PST 8105/8105-01 LOS: 0 days Dara Weldon is a 24 y.o. woman with oliguric ESRD who follows up with Dr. Jonathan Alonso MD as primary care provider. 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 She is historically non adherent to dialysis/dietary fluid/K/Po4/ Na restriction. She is normally dialyzed on a Monday, Monday, Monday schedule at [facility] using left upper extremity AV fistula. She used to see Dr. Trent Camp but switched to Dr. Anguiano. She also has combined diastolic/systolic congestive heart failure and was recently hospital ized at [facility] with hypervolemia and right pleural effusion (12/10/18-12/14/18). She has not been adherent to her dialysis prescription (emotional reasons). Lab work showed metabolic acidosis/hyperkalemia. Nephrology consultation was requested by Dr. Webber for evaluation and management of ESRD Chronic Severe Associated with: fluid electrolyte acid base imbalances including hyperkalemia/metabolic a cidosis. Assess need for hd/uf Seen and examined on hd with hd gisselle Rodarte (seen earlier by dr duarte ordered hd took over from him this eveving) tolerating hd/ uf well Access functioning well HD FLOW SHEET REVIEWED Feels ok No cp, n, v, d, fever, cramps. dizziness Patient's old records and labs were reviewed in detail and summarized. MEDS: Reviewed Examination: seen on hd with hd gisselle Rodarte Vitals as noted General appearance: Sitting up in bed in no distress Head/Neck: Facial puffiness noted. JVD +. Lungs: decrease bs at bases CV: s1 s2 no rub Abdomen: Soft, non-tender; Ascites +. Extremities: No peripheral edema Skin: no rash noted Psych: Pleasant demeanor. Neurologic: Alert, awake and oriented to person, place and time. No asterixis. Dialysis access: Left UE AVF functioning well Prior to Admission medications Medication Sig Start Date End Date Taking? Authorizing Provider albuterol-ipratropium 2.5-0.5 mg/3 mL SOLN Take 3 mLs by nebulization. Historical Provid MD ramonita carvedilol (COREG) 6.25 mg tablet Take 1 tablet by mouth 2 times daily. 01/10/19 Paty ann DO citalopram (CELEXA) 20 mg tablet Take 1 [...] or Vomiting (non-resposive to zofran). 07/24/18 Historical ProviderMD sevelamer carbonate (RENVELA) 800 mg tablet Take 2 tablets by mouth 3 (three) times daily w ith meals and 2 tablet with snacks twice daily 06/01/18 06/01/19 Historical Provider, valsartan (DIOVAN) 40 mg tablet Take 1 tablet by mouth Daily. 01/22/19 Carolina Mahmood DO Vital Signs: Reviewed BP 150/84 | Pulse 98 | Temp 36.4 C (97.6 F) (Oral) | Resp 16 | Ht 1.702 m (5' 7") | Wt 80.5 kg (177 lb 7.5 oz) | SpO2 92% | No | BMI 27.80 kg/m Data evaluation: Lab Results Component Value Date BUN 62 (H) 04/18/2019 EGFR 6 (L) 04/18/2019 NA 142 04/18/2019 K 5.2 (H) 04/18/2019 CL 102 04/18/2019 CO2 29 04/18/2019 PHOS 8.4 (H) 04/18/2019 MG 2.2 01/26/2019 HGB 11.6 04/18/2019 Lab Results Component Value Date HGB 11.6 04/18/2019 HGB 9.5 (L) 01/26/2019 HGB 9.5 (L) 01/25/2019 FERRITIN 805 (H) 01/24/2019 Lab Results Component Value Date ANIONGAP 16 04/18/2019 Ct Chest Abdomen Pelvis Wo Contrast 12/11/2018 [...] Hyperkalemia 7. Recurrent right pleural effusion 8. Anemia in ESRD 9. Hyperphosphatemia She has oliguric ESRD as per PMH who is admitted with recurrent hypervoelmia/pleural effusi on with non adherence to dialysis prescription/dietary salt/fluid non adherence. Hyperkalemia ESRD is severe and established. Access is working OK. Tolerating hd/ uf well Access functioning well HD FLOW SHEET REVIEWED Plan to dialyze today and for 3 to 4 days back to back (short daily dialysis) with UF. epogen to keep hgb 10-11 Increase protein intake Low k diet Low p diet/ renvela with meals Recommend thoracentesis and paracentesis. 2 gm Na, 2 gm K, 1 gm PO4, 1 gm/kg protein diet. Please dose all medications for an eGFR of less than 15 ml/min/1.73 m2. NSAIDS/SUAREZ 2 inhibitors should be avoided. Aluminum/magnesium containing antacids and magne sium/phosphate containing enemas should be avoided. Fluid should be restricted to less than 1.2 L in a 24 hr period. Strict I/O should be done. Antonio Benjamin MD 04/18/2019 She was seen earlier in the day and charting was completed later after rounds. Dictation software, [employer], was used which may contain error for [...] limi wilmer to . documented in this enc nter H&P Notes Daniela Lara MD - 04/18/2019 4:04 PM PST [facility]: Hospitalist Admission History & Physical Pt: Dara Weldon AGE/SEX: 24 y.o. female Date of Admission: 04/18/2019 Reason for Admission: Fluid overload History Obtained From: partient CHIEF COMPLAINT: Shortness of breath HISTORY OF PRESENT ILLNESS The patient is a 24 y.o. 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 Patient states that she usually miss her dialysis treatment due to her anxiety but she will be seeing a counselor soon. Her last full dialysis treatment was on 04/10/19. She went to her dialysis treatment yesterday but cut her treatment short due to her anxiety again. Today sindy hamilton started feeling SOB even at rest. She had an appointment to see pulmonology. When she called their office to complain about her SOB she was advised to go to the ED for evaluation . She denies have fever and chills. She has chronic nonproductive cough that has not changed , orthopnea, right sided chest pain that worsens with breathing and coughing, increasing abd ominal girth, and worsening LE edema. At the ED, patient was tachycardic and hypertensive with BP of 207/117. She was saturating 93% on room air at rest. Her labs were expected for a dialysis patient with stable hgb of 11 .6, mildly elevated serum K 5.2, BUN/creatinine of 62/8.8. CXR showed large pleural effusion right. Nephrology was consulted. Patient will be admitted for fluid overload. Active comorbid conditions include: - CHF; acute on chronic; combined diastolic & systolic - hypertension; secondary; due to renovascular - asthma - renal disease; CKD - obesity; due to excess calories; BMI (30-39) - Drugs/Alcohol/Tobacco - substance abuse REVIEW OF SYSTEMS Review of Systems Constitutional: Negative for chills and fever. HENT: Negative for sore throat. Eyes: Negative for blurred vision. Respiratory: Positive for cough and shortness of breath. Negative for sputum production and wheezing. Cardiovascular: Positive for chest pain, orthopnea and leg swelling. Negative for palpitati ons and claudication. Gastrointestinal: Negative for abdominal pain, nausea and vomiting. Musculoskeletal: Negative for back pain, joint pain and myalgias. Skin: Positive for rash. Neurological: Negative for sensory change, focal weakness and headaches. Psychiatric/Behavioral: Positive for substance abuse. Past Medical History: Diagnosis Date Asthma Bacteremia due to Gram-positive bacteria 12/12/2018 Clotted dialysis access (HCC) 2014 Congestive heart failure (HCC) ESRD (end stage renal disease) (HCC) HSP (Henoch-Schonlein purpura) nephritis ([facility]) 1987 Hypertension Pericardial effusion without cardiac tamponade 11/07/2018 Past Surgical History: Procedure Laterality Date ABDOMEN SURGERY AV FISTULA REPAIR 02/24/2014 LEFT Radical Cephalic Fistula Creation; Laterality: Left; Surgeon: Blake Chavarria MD ; Location: [facility] MAIN OR AV FISTULA REPAIR Left 03/07/2014 Procedure: AV FISTULA - GRAFT REPAIR/REVISION; Surgeon: Rik Simon MD; Location: [facility] IN OR; Service: Vascular; Laterality: Left; biopsy of kidney age 10 DIALYSIS FISTULA CREATION 04/08/2014 Procedure: DIALYSIS CATHETER - INSERTION; Surgeon: Rik Simon MD; Location: [facility] MAIN OR ; Service: Vascular; [...] SUPERFICIALIZATION; Surgeon: Emanuel Simon MD; Location: [facility] MAIN OR; Service: Vascular; Laterality: Left; OTHER SURGICAL HISTORY Left 04/08/2014 AV FISTULA PLACEMENT - Procedure: AV FISTULA; Surgeon: Rik Simon MD; Location: [facility] OR; Service: Vascular; Laterality: Left; cephalic OTHER SURGICAL HISTORY Left 03/07/2014 DECLOT GRAFT - Procedure: GRAFT - DECLOT; Surgeon: Rik Simon MD; Location: [facility] MAIN OR ; Service: Vascular; Laterality: Left; peritoneal catheter Allergies Allergen Reactions Adhesive & Tape Rash Certain tapes Fentanyl Itching Iodinated Diagnostic Agents Itching Pt c/o face itching during fistulagram Methylphenidate Other (See Comments) Patient says skin was crawling Morphine Itching and Rash Has used hydromorphone in-house. 01/24/19 Reglan [Metoclopramide] Itching Lisinopril cough Prior to Admission medications Medication Sig Start Date End Date Taking? Authorizing Provider albuterol-ipratropium 2.5-0.5 mg/3 mL SOLN Take 3 mLs by nebulization. Rubén shipman MD carvedilol (COREG) 6.25 mg tablet Take 1 tablet by mouth 2 times daily. 01/10/19 Paty ann DO citalopram (CELEXA) 20 mg tablet Take 1 [...] by mouth Daily. 01/22/19 Carolina Mahmood DO Family History Problem Relation Age of Onset High blood pressure Father Heart disease Mother Seizures Mother Hypertension Father Alcohol abuse Father Social History Social History Tobacco Use Smoking Status Former Smoker Packs/day: 0.50 Start date: 01/04/2017 Last attempt to quit: 01/04/2018 Years since quittin.2 Smokeless Tobacco Never Used Social History Substance and Sexual Activity Alcohol Use No Social History Substance and Sexual Activity Drug Use Yes Types: Marijuana Comment: Drug use: Yes PHYSICAL EXAM Vital Signs: BP (!) 195/102 | Pulse 113 | Temp 36.8 C (98.2 F) (Temporal) | Resp 18 | SpO2 93% Physical Exam Constitutional: She is oriented to person, place, and time. Young lady, sitting up in bed, did not appear to be in respiratory distress HENT: Head: Normocephalic and atraumatic. Mouth/Throat: Oropharynx is clear and moist. Eyes: Pupils are equal, round, and reactive to light. Neck: Normal range of motion. No JVD present. Cardiovascular: Regular rhythm. Murmur heard. tachycardic Pulmonary/Chest: She has no wheezes. Decrease BS right lung field Abdominal: Soft. Bowel sounds are normal. There is no abdominal tenderness. + anasarca Musculoskeletal: General: Edema present. Comments: Left arm AVF Lymphadenopathy: She has no cervical adenopathy. Neurological: She is alert and oriented to person, place, and time. No cranial nerve defici t. Skin: Skin is warm. DATA Recent Results (from the past 24 hour(s)) CBC with Differential Result Value Ref Range WBC 6.48 3.80 - 11.00 K/uL RBC 3.29 (L) 3.70 - 5.10 M/uL Hemoglobin 11.6 11.3 - 15.5 g/dL Hematocrit 36.6 34.0 - 46.0 % MCV 111.2 (H) 80.0 - 100.0 fl MCH 35.3 (H) 27.0 - 34.0 pg MCHC 31.7 (L) 32.0 - 35.5 g/dL RDW-SD 60.3 (H) 37 - 53 fl Platelet Count 185 150 - 400 K/uL MPV 11.3 fl Diff Type AUTOMATED % nRBC 0.0 0 /100WBC % Neutrophils 68.80 % IMMATURE GRANULOCYTE 0.30 % % Lymphocytes 11.10 % Monocyte % 5.20 % Eosinophils % 13.70 % Basophils % 0.90 % Neutrophils, Absolute 4.45 1.90 - 7.40 K/uL IMMATURE GRANS AB 0.02 0.00 - 0.07 K/uL Absolute Lymphocytes 0.72 (L) 1.00 - 3.90 K/uL Absolute Monocytes 0.34 0.00 - 0.80 K/uL Eosinophils, Absolute 0.89 (H) 0.00 - 0.50 K/uL Basophils, Absolute 0.06 0.00 - 0.10 K/uL Comprehensive Metabolic Panel Result Value Ref Range Na 142 135 - 145 mmol/L K 5.2 (H) 3.5 - 4.9 mmol/L Cl 102 99 - 109 mmol/L CO2 29 23 - 32 mmol/L Anion Gap 16 5 - 20 mmol/L Glucose 90 65 - 99 mg/dL BUN 62 (H) 8 - 25 mg/dL Creatinine 8.83 (H) 0.50 - 1.00 mg/dL BUN/Creatinine Ratio 7 Calcium 10.0 8.5 - 10.5 mg/dL Protein, Total 6.6 6.3 - 8.2 g/dL Albumin 4.3 3.6 - 5.0 g/dL Globulin 2.3 1.3 - 4.9 g/dL A/G Ratio 1.9 1.0 - 2.4 BILIRUBIN, TOTAL 0.6 0.1 - 1.5 mg/dL ALK PHOS 142 (H) 35 - 115 U/L AST 36 10 - 45 U/L ALT 36 10 - 65 U/L Estimated GFR 6 (L) >60 mL/min/1.73m2 Protime INR Result Value Ref Range INR 1.2 D-Dimer Result Value Ref Range D-DIMER 1.37 (H) 0.19 - 0.50 mg/L FEU Imaging Recent Results (from the past 360 hour(s)) XR Chest 2 Vws Narrative CHEST TWO VIEWS CLINICAL INFORMATION: Chest pain COMPARISON: XR CHEST AP PORTABLE (01/24/2019); XR CHEST 2 VIEWS (01/23/2019); XR CHEST PA AND LATERAL (01/09/2019); FINDINGS: Increase in now large right pleural effusion with associated right lung atelectasis. No left-sided effusion. No pneumothorax. Cardiomediastinal silhouette is normal. Impression Increased, now large right pleural effusion with associated atelectasis.. Signed by: Eliza Galvan David Sign Date/Time: 04/18/2019 3:29 PM PROBLEM LIST Active Problems: ESRD on hemodialysis Noncompliance Uncontrolled hypertension Acute respiratory distress History of Henoch-Schonlein purpura Anemia in ESRD (end-stage renal disease) Secondary hyperparathyroidism ASSESSMENT & PLAN Right recurrent pleural effusion Likely secondary to fluid overload from inadequate dialysis treatments Consulted nephrology for HD For thoracentesis Counseled regarding HD treatment and dietary Na restriction compliance O2 per nasal canula as needed to keep O2sat> 90% Uncontrolled HTN Secondary to poor compliance with meds and fluid overload Resumed oral antihypertensive meds UF during HD per nephrology's discretion Monitor BP Prn hydralazine if SBP > 180 ESRD Defer to nephrology for HD orders Continue P binder Anemia of CKD Defer to nephrology regarding ESTEFANY orders DVT prophylaxis with heparin The plan was explained in detail to the patient , all questions were answered.All data was reviewed. Disposition: For admission Code Status: Prior Primary Care Physician: MD Daniela Thomas MD 04/18/2019 4:04 PM documented in this enco unter Procedure Notes Antonio Benjamin MD - 04/22/2019 11:55 AM PSTProcedure(s): HEMODIALYSIS 8105/8105-01 LOS: 4 days Dara Weldon is a 24 y.o. woman with oliguric ESRD who follows up with Dr. Jonathan Alonso MD as primary care provider. 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 She is historically non adherent to dialysis/dietary fluid/K/Po4/ Na restriction. She is normally dialyzed on a Monday, Monday, Monday schedule at [facility] using left upper extremity AV fistula. She used to see Dr. Trent Camp but switched to Dr. Anguiano. She also has combined diastolic/systolic congestive heart failure and was recently hospital ized at [facility] with hypervolemia and right pleural effusion (12/10/18-12/14/18). She has not been adherent to her dialysis prescription (emotional reasons). Lab work showed metabolic acidosis/hyperkalemia. Nephrology consultation was requested by Dr. Webber for evaluation and management of ESRD Chronic Severe Associated with: fluid electrolyte acid base imbalances including hyperkalemia/metabolic a cidosis. Assess need for hd/uf Seen and examined on hd with hd rn tolerating hd/ uf well Access functioning well HD FLOW SHEET REVIEWED Feels better No cp, n, v, d, fever, cramps. dizziness Patient's old records and labs were reviewed in detail and summarized. MEDS: Reviewed Examination: seen on hd with hd rn Vitals as noted BP 126/62 | Pulse 69 | Temp (!) 3.5 C (38.3 F) (Oral) | Resp 16 | Ht 1.702 m (5' 7" ) | Wt 72.1 kg (158 lb 15.2 oz) | SpO2 96% | No | BMI 24.90 kg/m General appearance: lying in the bed comfortaably Head/Neck: Non-icteric sclera Lungs: decrease bs at bases, no respiratory distress. CV: s1 s2 no rub Abdomen: Soft, non-tender; Extremities: No peripheral edema Skin: no rash noted Psych: Pleasant demeanor. Neurologic: Alert, awake and oriented to person, place and time. No asterixis. Dialysis access: Left UE AVF functioning well MEDS: REVIEWED carvedilol 12.5 mg Oral BID citalopram 20 mg Oral Daily epoetin jenna-epbx 4,000 Units Intravenous With each dialysis heparin (dialysis) 2,000 Units Intravenous With each dialysis heparin 5,000 Units Subcutaneous 2 times per day pantoprazole 40 mg Oral QAM AC sevelamer carbonate 1,600 mg Oral See Admin Instructions valsartan 40 mg Oral Daily Data evaluation: Lab Results Component Value Date BUN 28 (H) 04/22/2019 EGFR 8 (L) 04/22/2019 NA 139 04/22/2019 K 4.2 04/22/2019 CL 101 04/22/2019 CO2 32 04/22/2019 PHOS 8.4 (H) 04/18/2019 MG 2.2 01/26/2019 HGB 10.6 (L) 04/19/2019 Lab Results Component Value Date HGB 10.6 (L) 04/19/2019 HGB 11.6 04/18/2019 HGB 9.5 (L) 01/26/2019 FERRITIN 805 (H) 01/24/2019 Lab Results Component [...] plan: 1. Hypervolemia with congestive heart failure due to non complaince 2. Suboptimally controlled hypertension (Stage 2) 3. End-stage renal disease on hemodialysis 4. Nonadherence to dialysis prescription 5. IAG metabolic acidosis 6. Hyperkalemia 7. Recurrent right pleural effusion 8. Anemia in ESRD 9. Hyperphosphatemia She has oliguric ESRD as per PMH who is admitted with recurrent hypervoelmia/pleural effusi on with non adherence to dialysis prescription/dietary salt/fluid non adherence. Hyperkalemia ESRD is severe and established. Access is working OK. Tolerating hd/ uf well Access functioning well HD FLOW SHEET REVIEWED Plan to dialyze today and for 3 to 4 days back to back (short daily dialysis) with UF. epogen to keep hgb 10-11 Increase protein intake Low k diet Low p diet/ renvela with meals 2 gm Na, 2 gm K, 1 gm PO4, 1 gm/kg protein diet. Please dose all medications for an eGFR of less than 15 ml/min/1.73 m2. NSAIDS/SUAREZ 2 inhibitors should be avoided. Aluminum/magnesium containing antacids and magne sium/phosphate containing enemas should be avoided. Fluid should be restricted to less than 1.2 L in a 24 hr period. Strict I/O should be done. Antonio Benjamin MD 04/22/2019 She was seen earlier in the day and charting was completed later after rounds. Dictation software, [employer], was used which may contain error for [...] including but not limi wilmer to . Antonio Torres MD - 04/20 12:00 PM PSTProcedure(s): HEMODIALYSIS 8105/8105-01 LOS: 2 days Dara Weldon is a 24 y.o. woman with oliguric ESRD who follows up with Dr. Jonathan Alonso MD as primary care provider. 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 She is historically non adherent to dialysis/dietary fluid/K/Po4/ Na restriction. She is normally dialyzed on a Monday, Monday, Monday schedule at [facility] using left upper extremity AV fistula. She used to see Dr. Trent Camp but switched to Dr. Anguiano. She also has combined diastolic/systolic congestive heart failure and was recently hospital ized at [facility] with hypervolemia and right pleural effusion(12/10/18-12/14/18). She has not been adherent to her dialysis prescription (emotional reasons). Lab work showed metabolic acidosis/hyperkalemia. Nephrology consultation was requested by Dr. Webber for evaluation and management of ESRD Chronic Severe Associated with: fluid electrolyte acid base imbalances including hyperkalemia/metabolic a cidosis. Assess need for hd/uf Seen and examined on hd with hd rn tolerating hd/ uf well Access functioning well HD FLOW SHEET REVIEWED Feels weak, eating well No cp, n, v, d, fever, cramps. dizziness Patient's old records and labs were reviewed in detail and summarized. MEDS: Reviewed Examination: seen on hd with hd rn Vitals as noted, reviewed General appearance: lying in the bed in no distress Head/Neck: Non-icteric sclera Lungs: decrease bs at bases, no respiratory distress. CV: s1 s2 no rub Abdomen: Soft, non-tender; Extremities: No peripheral edema Skin: no rash noted Psych: Pleasant demeanor. Neurologic: Alert, awake and oriented to person, place and time. No asterixis. Dialysis access: Left UE AVF functioning well Prior to Admission medications Medication Sig Start Date End Date Taking? Authorizing Provider albuterol-ipratropium 2.5-0.5 mg/3 mL SOLN Take 3 mLs by nebulization. Historical Provid MD ramonita carvedilol (COREG) 6.25 mg tablet Take 1 tablet by mouth 2 times daily. 01/10/19 Paty ann DO citalopram (CELEXA) 20 mg tablet Take 1 [...] 01/22/19 Carolina Mahmood DO Vital Signs: BP 123/71 | Pulse 88 | Temp 36.8 C (98.3 F) (Oral) | Resp 16 | Ht 1.702 m (5' 7") | Wt 76.6 kg (168 lb 14 oz) | SpO2 91% | No | BMI 26.45 kg/m Data evaluation: Lab Results Component Value Date BUN 12 04/20/2019 EGFR 19 (L) 04/20/2019 NA 138 04/20/2019 K 4.3 04/20/2019 CL 99 04/20/2019 CO2 34 (H) 04/20/2019 PHOS 8.4 (H) 04/18/2019 MG 2.2 01/26/2019 HGB 10.6 (L) 04/19/2019 Lab Results Component Value Date HGB 10.6 (L) 04/19/2019 HGB 11.6 04/18/2019 HGB 9.5 (L) 01/26/2019 FERRITIN 805 (H) 01/24/2019 Lab Results Component Value Date ANIONGAP 9 04/20/2019 Ct Chest Abdomen Pelvis Wo Contrast 12/11/2018 [...] plan: 1. Hypervolemia with congestive heart failure due to non complaince 2. Suboptimally controlled hypertension (Stage 2) 3. End-stage renal disease on hemodialysis 4. Nonadherence to dialysis prescription 5. IAG metabolic acidosis 6. Hyperkalemia 7. Recurrent right pleural effusion 8. Anemia in ESRD 9. Hyperphosphatemia She has oliguric ESRD as per PMH who is admitted with recurrent hypervoelmia/pleural effusi on with non adherence to dialysis prescription/dietary salt/fluid non adherence. Hyperkalemia ESRD is severe and established. Access is working OK. Tolerating hd/ uf well Access functioning well HD FLOW SHEET REVIEWED Getting daily hd with uf epogen to keep hgb 10-11 Increase protein intake Low k diet Low p diet/ renvela with meals 2 gm Na, 2 gm K, 1 gm PO4, 1 gm/kg protein diet. Please dose all medications for an eGFR of less than 15 ml/min/1.73 m2. NSAIDS/SUAREZ 2 inhibitors should be avoided. Aluminum/magnesium containing antacids and magne sium/phosphate containing enemas should be avoided. Fluid should be restricted to less than 1.2 L in a 24 hr period. Strict I/O should be done Antonio Benjamin MD 04/20/2019 She was seen earlier in the day and charting was completed later after rounds. Dictation software, [employer], was used which may contain error for [...] limi wilmer to . documented in this encou nter Consult Notes Cliff Duarte MD - 04/18/2019 4:55 PM PST [id number] LOS: 0 days CHIEF COMPLAINT: I need my dialysis HISTORY OF PRESENT ILLNESS: She is seen with her mother at bedside. Dara Weldon is a 24 y.o. woman with oliguric ESRD who follows up with Dr. Jonathan Alonso MD as primary care provider. 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 She is historically non adherent to dialysis/dietary fluid/K/Po4 restriction. She is normally dialyzed on a Monday, Monday, Monday schedule at [facility] using left upper extremity AV fistula. She used to see Dr. Trent Camp but has switched to Dr. Anguiano. She also has combined diastolic/systolic congestive heart failure and was recently hospital ized at [facility] with hypervolemia and right pleural effusion (12/10/18-12/14/18). She has not been adherent to her dialysis prescription (emotional reasons). I reviewed her dialysis history last couple of weeks. She went for dialysis for about coupl e of hours yesterday, had a dialysis session (incomplete) on 7th and before that on the . She had missed multiple sessions prior to that and had been way over her EDW. She came to ED with chest pain. EKG showed sinus tachycardia. CXR showed large right pleural effusion. Lab work showed metabolic acidosis/hyperkalemia. Nephrology consultation was requested by Dr. Webber for evaluation and management of ESRD Associated with: fluid electrolyte acid base imbalances including hyperkalemia/metabolic a cidosis. Records from [facility] reviewed. PMH, PSH, Social history reviewed in chart. [...] by mouth 2 times daily. 01/10/19 Paty ann DO citalopram (CELEXA) 20 mg tablet Take 1 [...] Carolina Mahmood DO Vital Signs: BP (!) 195/102 | Pulse 113 | Temp 36.8 C (98.2 F) (Temporal) | Resp 18 | SpO2 93% Data evaluation: Lab Results Component Value Date BUN 62 (H) 04/18/2019 EGFR 6 (L) 04/18/2019 NA 142 04/18/2019 K 5.2 (H) 04/18/2019 CL 102 04/18/2019 CO2 29 04/18/2019 PHOS 4.9 (H) 01/26/2019 MG 2.2 01/26/2019 HGB 11.6 04/18/2019 Lab Results Component Value Date HGB 11.6 04/18/2019 HGB 9.5 (L) 01/26/2019 HGB 9.5 (L) 01/25/2019 FERRITIN 805 (H) 01/24/2019 Lab Results Component Value Date ANIONGAP 16 04/18/2019 Ct Chest Abdomen Pelvis Wo Contrast 12/11/2018 [...] to dialysis prescription/dietary salt/fluid non adherence. Hyperkalemia stemmed from high dietary intake and has resolved. ESRD is severe and established. Access is working OK. Plan to dialyze today and for 3 to 4 days back to back (short daily dialysis) with UF. Recommend thoracentesis and paracentesis. I discussed with her the concept of [...] was discussed with . I thank Dr Webber for giving me the opportunity to take part in her care with multiple co mplex medical problems. Do not hesitate to contact me if you have any questions. Cliff Duarte MD 04/18/2019 She was seen earlier in the day and charting was completed later after rounds. Dictation software, [employer], was used which may contain error for [...] including but not limi wilmer to . Dr. Benjamin will assume nephrology care as of 8 PM tonight. documented in this [facility] ED Notes French Alexandre, DO - 04/18/2019 1:49 PM PST [facility] Department of Emergency Medicine 04/18/2019 1:49 PM History of Present Illness Patient Identification Dara Weldon is a 24 y.o. female. Patient information was obtained from patient and parent. History/Exam limitations: none. Patient presented to the Emergency Department by: by private vehicle Primary care physician: Jonathan Alonso MD Chief Complaint Chief Complaint Patient presents with Chest Pain Shortness of Breath Dara Weldon is a 24 y.o. female patient who presents to the Emergency Department with p rimary subjective complaint of SOB. Onset of symptoms was a few days ago, with a worsening c ourse since that time. The patient describes these symptoms as "I feel fluid overloaded and have trouble breathing", located in the substernal chest, and rated as severe. The patient r eports time worsens symptoms, and nothing relieves symptoms. 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 She p roduces "very little" urine at baseline. She has a hx of missing dialysis appointments and h er mother reports privately that she struggles to act responsibly concerning her condition a nd does not appreciate help. The pt was last admitted for similar symptoms in January. The pt reports that she is experiencing continues stress due to the of a very clos e friend over 1 year ago. This stress has caused her to miss several appointments and has in duced anxiety. Presently, the pt reports that she last received scheduled dialysis on 0 and has missed her last 5 appointments. She also began developing "cold sweats" at night 4 days ago. The pt presented to an ED in [place], [place] recently for her condition but "was se nt home". Patient additionally describes chest pain, diaphoresis, and orthopnea associated w ith primary complaint. Pt denies current or recent fever, headache, facial pain, rhinorrhea , sore throat, abdominal pain, N/V, appetite changes, bowel or bladder habit changes, skin r pb, paresthesias, myalgias/arthralgias, gait abnormalities, lymphadenopathy, or non-traumat ic bruising. Patient was seen for a similar complaint on January 23, 2019 at which time she indicated t hat she had missed 2 appointments of dialysis and felt that there was fluid on her lungs vilma t needed to be removed. Patient's engraver letter is Dr. Anguiano Past Medical History: Diagnosis Date Asthma Bacteremia due to Gram-positive bacteria 12/12/2018 Clotted dialysis access ([facility]) 2014 Congestive heart failure ([facility]) ESRD (end stage renal disease) ([facility]) HSP (Henoch-Schonlein purpura) nephritis ([facility]) 1987 Hypertension Pericardial effusion without cardiac tamponade 11/07/2018 Past Surgical History: Procedure Laterality Date ABDOMEN SURGERY AV FISTULA REPAIR 02/24/2014 LEFT Radical Cephalic Fistula Creation; Laterality: Left; Surgeon: Blake Chavarria MD ; Location: [facility] MAIN OR AV FISTULA REPAIR Left 03/07/2014 Procedure: AV FISTULA - GRAFT REPAIR/REVISION; Surgeon: Rik Simon MD; Location: [facility] IN OR; Service: Vascular; Laterality: Left; biopsy of kidney age 10 DIALYSIS FISTULA CREATION 04/08/2014 Procedure: DIALYSIS CATHETER - INSERTION; Surgeon: Rik Simon MD; Location: [facility] MAIN OR ; Service: Vascular; Laterality: N/A; tunneled catheter.br hemodialysis catheter KIDNEY BIOPSY Left 2003 OTHER SURGICAL HISTORY LAPAROSCOPIC PERITONEAL DIALYSIS CATHETER INSERTION - x2 OTHER SURGICAL HISTORY Right 07/2013 LAPAROSCOPIC PERITONEAL DIALYSIS CATHETER INSERTION - current dialysis access MWF dialysis OTHER SURGICAL HISTORY Left 06/24/2014 SUPERFICIALIZATION OF AV FISTULA - Procedure: AV FISTULA - SUPERFICIALIZATION; Surgeon: Emanuel Simon MD; Location: [facility] MAIN OR; Service: Vascular; Laterality: Left; OTHER SURGICAL HISTORY Left 04/08/2014 AV FISTULA PLACEMENT - Procedure: AV FISTULA; Surgeon: Rik Simon MD; Location: [facility] OR; Service: Vascular; Laterality: Left; cephalic OTHER SURGICAL HISTORY Left 03/07/2014 DECLOT GRAFT - Procedure: GRAFT - DECLOT; Surgeon: Rik Simon MD; Location: [facility] MAIN OR ; Service: Vascular; Laterality: Left; peritoneal catheter [employer] Home Medications Medication Sig albuterol 90 mcg/puff inhaler Inhale 2 puffs into the lungs every 6 hours as needed for Wheezing. carvedilol (COREG) 6.25 mg tablet Take 1 tablet by mouth 2 times daily. (Patient taking differently: Take 12.5 mg by mouth 2 times daily.) citalopram (CELEXA) 20 mg tablet Take 1 tablet by mouth Daily. clopidogrel (PLAVIX) 75 mg tablet Take 1 tablet by mouth Daily. doxercalciferol (HECTOROL) 2 mcg/mL injection Inject 0.5 [...] into the lungs 2 times beck ly. iron sucrose (VENOFER) 20 mg/mL injection Inject [...] for Nausea or Vomiting (non-resposive to zofran). sevelamer carbonate (RENVELA) 800 mg tablet Take 2 tablets by mouth 3 (three) times beck ly with meals and 2 tablet with snacks twice daily valsartan (DIOVAN) 40 mg tablet Take 1 tablet by mouth Daily. Allergies Allergen Reactions Adhesive & Tape Rash Certain tapes Fentanyl Itching Iodinated Diagnostic Agents Itching Pt c/o face itching during fistulagram Methylphenidate Other (See Comments) Patient says skin was crawling Reglan [Metoclopramide] Itching Lisinopril cough Social History Socioeconomic History Marital status: Single Spouse name: Not on file Number of children: 0 Years of education: Not on file Highest education level: Not on file Tobacco Use Smoking status: Former Smoker Packs/day: 0.50 Start date: 01/04/2017 Last attempt to quit: 01/04/2018 Years since quittin.2 Smokeless tobacco: Never Used Substance and Sexual Activity Alcohol use: No Drug use: Yes Types: Marijuana Comment: Drug use: Yes Social History Narrative She lives in [facility]. She does not work. She has 1 full sibling in good health. She has a total of 14 siblings (3 with same mother, rest with same father). 1 half sibling on father's side had a brain tumor. Family History Problem Relation Age of Onset High blood pressure Father Heart disease Mother Seizures Mother Hypertension Father Alcohol abuse Father Review of Systems Constitutional: Positive for: diaphoresis Negative for: fever, chills Eyes: Negative for: decreased vision or irritated eyes Nose: Negative for: nosebleed Throat: Negative for: sore throat or dysphagia Cardiovascular/Respiratory: Positive for: chest pain, SOB, orthopnea Negative for: cough Gastrointestinal: Negative for: abdominal pain, nausea/vomiting, diarrhea, constipation, b lack or bloody stools Genitourinary: Negative for: dysuria, hematuria, or increased urinary frequency Musculoskeletal: Negative for: joint pain, myalgias, or restriction of range of motion Skin: Negative for: laceration or lesion Neuro and psych: Negative for: fainting, head injury, seizure, trouble walking Endocrine/Heme/Lymph: Negative for: swollen lymph nodes, easy bruising Physical Exam Temp: 36.8 C (98.2 F) Pulse: 117 Resp: 20 BP: (!) 207/117 SpO2: 93 % Vitals: Elevated blood pressure with history of hypertension, tachycardic, mildly hypoxic, otherwise normal. Pulse Oximetry Interpretation: Abnormal General: Alert, in mild visible distress Eyes: Pupils equal and round, equally brisk responsiveness to light, non-icteric Extraocular motion intact ENT: Moist mucous membranes, pink appearing Neck: Normal appearing CVS: Regular rate, rhythm normal No murmurs Chest pain reproduced with palpation at the costosternal junction from rib 1-5 Respiratory: Crackles present in the left upper lung and right upper lung, No crackles pres ent in the bilateral bases, normal chest rise and fall, no obvious trauma Abdomen: Subcutaneous edema present Soft, mild superficial LUQ TTP of unknown significance, non-distended No guarding or rebound Back: Moves without difficulty Extremities: Moves all extremities Skin: Color normal Warm and dry Neuro: No gross motor/sensory deficits noted Medical Decision Making and Emergency Department Course ED Department Course ED Triage Notes, ED Triage Notes Cal Pablo RN 04/18/2019 13:14 Presents today with CC of chest pain. Patient has had similar pain in the past with episode of pulmonary embolism. Patient is in renal failure, last dialsys (MWF) was yesterday but only partially completed. Last attended dialysis 04/10/19. Dialysis nurse was unable to auscultate breath sounds on rig ht side yesterday. Alert and oriented with no acute distress. 1:49 PM. Patient presents with SOB. The pt reports missing her last 5 dialysis appointment s. I believe symptoms are primarily due to fluid overload from missed dialysis. Differentia l considerations include pneumonia, pulmonary edema, congestive heart failure, worsening raj al function, electrolyte abnormality, versus other. Will obtain testing as needed to addres s clinically significant differential diagnoses and attempt to determine a definitive diagno sis (see Epic record for tests specifically ordered). I have discussed the testing course to determine potential etiology and determine whether the patient will be safe for outpatient continuing evaluation or will require admission. Pt and her mother indicate understanding of expected course of ED evaluation and care. The patient was noted to have elevated blood pressure during their emergency department vis it. Causes of hypertension could include acute pain, stressful situation/anxiety, primary hy pertension, secondary hypertension, uncontrolled primary/secondary hypertension, pre-eclamps ia/eclampsia in patients, hypertensive urgency, or hypertensive emergency. Blood pr essures that are elevated but are not causing end organ damage do not require emergent treat ment directed to lower blood pressure within the emergency department setting. There are no overt signs of end organ damage at this time (acute MD, aortic dissection, acute CVA, eclam psia, etc) and no indication for emergent treatment for reduction of the noted blood pressur e in the emergency department. For assessment of whether the blood pressure elevation noted today may represent a condition requiring treatment the patient has been instructed to foll ow-up with their health care provider within a timeframe of four weeks maximum if discharged today. If the patient requires admission today the accepting service will continue to babak tor and provide clinical consideration regarding management of blood pressure. Medical Decision Making as of Apr 18 2328 Little Apr 18, 2019 1413 Patient's history is highly concerning for missing the last 5 episodes of dialysis, sh e has signs of clinical overload of fluid. Lung sounds are audible on my examination althou gh there are crackles present. Patient will require dialysis. Will contact nephrology serv ice. Patient has reproducible chest discomfort consistent with costochondral discomfort. W ill provide morphine to help as patient is still producing urine and anti-inflammatories cou ld potentiate worsening renal function. 1414 Will begin temporizing measures for hyperkalemia which I anticipate will be present al though labs are not yet reported. [address] Duarte, he indicates he is familiar with this patient and will plan for dialysis as an inpatient. Will admit patient to the hospitalist service. The patient's d-dimer is elevated, although her symptoms are reproduced with palpation of t he chest wall making PE less likely. Potassium is mildly elevated, temporizing measures hav e already been started. White blood cell count within normal limits. 1514 Chest x-ray reviewed, left lung tidwell with cephalization of the vessels consistent wi th pulmonary edema. The right lower lung tidwell are obscured, meniscal sign is present sugg estive of pleural effusion, there is separation from chest wall and the right lower lobe vilma t would not be noted with a pleural effusion, rather with urmila filling of the lungs with fl uid. Patient's pulse oximetry is within normal limits. Will await radiology interpretation . 1534 Formal radiology interpretation of chest x-ray, indicates larger pleural effusion with atelectasis. [address] Lara, hospitalist, she will see the patient for admission in e emergency department. 3:[address] Duarte, Nephrology, who will see the pt and administer dialysis as an inpatient.. Records Reviewed Old medical records. Nursing notes. 1 prior emergency department visit for an unrelated complaint. Medications administered during ED Evaluation and Treatment: Medications albuterol-ipratropium 2.5-0.5 mg/3 mL nebulizer solution 3 mL (has no administration in franco e range) carvedilol (COREG) tablet 12.5 mg (0 mg Oral Hold 04/18/192000) citalopram (celeXA) tablet 20 mg (0 mg Oral Hold 04/18/191806) clonazePAM (klonoPIN) tablet 0.25 mg (0.25 mg Oral Given 04/18/192055) pantoprazole (PROTONIX) DR tablet 40 mg (0 mg Oral Hold 04/18/191807) sevelamer carbonate (RENVELA) tablet 1,600 mg (has no administration in time range) valsartan (DIOVAN) tablet 40 mg (0 mg Oral Hold 04/18/191807) heparin 5,000 units/mL injection 5,000 Units (5,000 Units Subcutaneous Not Given 04/18/19) acetaminophen (TYLENOL) tablet 650 mg (650 mg Oral Given 04/18/192051) polyethylene glycol (MIRALAX) powder 17 g (has no administration in time range) senna (SENOKOT) tablet 8.6 mg (has no administration in time range) ondansetron (ZOFRAN ODT) disintegrating tablet 4 mg (has no administration in time range) ondansetron (ZOFRAN) injection 4 mg (has no administration in time range) hydrALAZINE (APRESOLINE) injection 20 mg (has no administration in time range) sodium chloride 0.9% (NS) bolus 100 mL (has no administration in time range) heparin (dialysis) 1,000 units/mL infusion (500 Units/hr Intravenous New Bag 04/18/191844) albumin 25% IVPB 12.5 g (has no administration in time range) ondansetron (ZOFRAN) injection 4 mg (4 mg Intravenous Given 04/18/19 1355) insulin regular (humuLIN R, novoLIN R) injection (vial) 5 Units (5 Units Intravenous Given 04/18/19 1508) dextrose 50% injection 25 g (25 g Intravenous Given 04/18/19 1505) albuterol 5 mg/mL concentrated nebulizer solution 10 mg (10 mg Nebulization Given 04/18/19 1 435) calcium gluconate injection 1 g (1 g Intravenous Given 04/18/19 1506) morphine injection 4 mg (4 mg Intravenous Given 04/18/19 1506) heparin (dialysis) 1,000 units/mL injection 2,000 Units (2,000 Units Intravenous Given 04/18 1840) cloNIDine (CATAPRES) tablet 0.1 mg (0.1 mg Oral Given 04/18/19 1748) Laboratory Evaluation Results Procedure Component Value Ref Range Date/Time Comprehensive Metabolic Panel [[id number]] (Abnormal) Collected: 04/18/191331 Order Status: Completed Specimen: Blood Updated: 04/18/191429 Na 142 135 - 145 mmol/L K 5.2 3.5 - 4.9 mmol/L Cl 102 99 - 109 mmol/L CO2 29 23 - 32 mmol/L Anion Gap 16 5 - 20 mmol/L Glucose 90 65 - 99 mg/dL BUN 62 8 - 25 mg/dL Creatinine 8.83 0.50 - 1.00 mg/dL BUN/Creatinine Ratio 7 Calcium 10.0 8.5 - 10.5 mg/dL Protein, Total 6.6 6.3 - 8.2 g/dL Albumin 4.3 3.6 - 5.0 g/dL Globulin 2.3 1.3 - 4.9 g/dL A/G Ratio 1.9 1.0 - 2.4 BILIRUBIN, TOTAL 0.6 0.1 - 1.5 mg/dL ALK PHOS 142 35 - 115 U/L AST 36 10 - 45 U/L ALT 36 10 - 65 U/L Estimated GFR 6 >60 mL/min/1.73m2 Protime INR [[id number]] Collected: 04/18/191331 Order Status: Completed Specimen: Blood Updated: 04/18/191424 INR 1.2 D-Dimer [[id number]] (Abnormal) Collected: 04/18/191331 Order Status: Completed Specimen: Blood Updated: 04/18/19 1425 D-DIMER 1.37 0.19 - 0.50 mg/L FEU CBC with Differential [[id number]] (Abnormal) Collected: 04/18/191331 Order Status: Completed Specimen: Blood Updated: 04/18/19 1419 WBC 6.48 3.80 - 11.00 K/uL RBC 3.29 3.70 - 5.10 M/uL Hemoglobin 11.6 11.3 - 15.5 g/dL Hematocrit 36.6 34.0 - 46.0 % MCV 111.2 80.0 - 100.0 fl MCH 35.3 27.0 - 34.0 pg MCHC 31.7 32.0 - 35.5 g/dL RDW-SD 60.3 37 - 53 fl Platelet Count 185 150 - 400 K/uL MPV 11.3 fl Diff Type AUTOMATED % nRBC 0.0 0 /100WBC % Neutrophils 68.80 % IMMATURE GRANULOCYTE 0.30 % % Lymphocytes 11.10 % Monocyte % 5.20 % Eosinophils % 13.70 % Basophils % 0.90 % Neutrophils, Absolute 4.45 1.90 - 7.40 K/uL IMMATURE GRANS AB 0.02 0.00 - 0.07 K/uL Absolute Lymphocytes 0.72 1.00 - 3.90 K/uL Absolute Monocytes 0.34 0.00 - 0.80 K/uL Eosinophils, Absolute 0.89 0.00 - 0.50 K/uL Basophils, Absolute 0.06 0.00 - 0.10 K/uL Radiology and EKG Evaluation EKG Interpretation: Time: 11:43 AM Rate: 113 bpm Rhythm: Sinus Tachycardia [place]: Left GONZAL[place]: Normal QRS: Normal, narrow complex ST waves: No ST-T wave elevations or depressions Other: No peaked T waves present Prior EKG for comparison: 01/23/19 Acute ischemia suggested: no This EKG was read and interpreted by myself. Imaging Results XR Chest 2 Vws (Final result) Result time 04/18/19 15:29:55 Notes recorded by Asad Carrasco PA-C on 04/18/2019 at 8:25 PM PST Patient currently admitted and followed by hospitalist service Final result by Florian Galvan MD (04/18/19 15:29:55) Impression: Increased, now large right pleural effusion with associated atelectasis.. Signed by: Eliza Galvan David Sign Date/Time: 04/18/2019 3:29 PM Narrative: CHEST TWO VIEWS CLINICAL INFORMATION: Chest pain COMPARISON: XR CHEST AP PORTABLE (01/24/2019); XR CHEST 2 VIEWS (01/23/2019); XR CHEST PA AND LATERAL (01/09/2019); FINDINGS: Increase in now large right pleural effusion with associated right lung atelectasis. No left-sided effusion. No pneumothorax. Cardiomediastinal silhouette is normal. I have independently viewed the imaging (if ordered) and have either provided a preliminary wet read as above or have reviewed and agree with interpretation as reported by radiologist above. Labs and imaging (if ordered) reviewed. All pertinent positives noted and addressed. Resu lts (if tests were ordered) have been discussed with the patient. Diagnosis: Final diagnoses: ESRD needing dialysis (HCC) Hypervolemia, unspecified hypervolemia type Noncompliance with renal dialysis (HCC) Costochondritis Recurrent right pleural effusion Disposition: Admit to: Hospitalist Service Procedure(s): Procedures This document has been prepared with a voice recognition system. The possibility of "sound alike" disability aide errors, addition and/or deletions may occur. If there is any question p lease contact the author of the document. Attending Provider Note: IFrench DO personally performed the services described i n this documentation, as scribed by Jaye Dangelo in my presence, and it is both accurate and complete. Chart Reviewed and Completed. Scribe: I Héctor Fonseca, scribing for and in the presence of French Alexandre DO. Completed by: Héctor Fonseca 04/18/2019 6:17 PM French Alexandre DO 04/18/19 [id number] Cal Gillette RN - 04/18/2019 1:11 PM PSTPresents today with CC of chest pain. Patient has had similar pain in the past with episode of pulmonary embolism. Patient is in renal failure, last dialsys (MWF) was yesterday but only partially completed. Last attended dialysis 04/10/19. Dialysis nurse was unable to auscultate breath sounds on rig ht side yesterday. Alert and oriented with no acute distress. documented in this en counter Miscellaneous Notes Plan of Care - Marquita Francisco RN - 04/23/2019 11:32 AM PSTAVS reviewed with patient and mo ther and discharge teaching complete. Discharge medications reviewed and all questions answe red. Local drug take back flyer given to patient in discharge folder. Verified with patient that they have all belongings. Escorted off unit by: transport aid Transportation via private vehicle provided by: Mother Marquita Francisco RN lan of Care - Marli Rocha RN - 04/23/2019 8:54 AM PST Problem: Adult Inpatient Plan of Care Goal: Plan of Care Review Outcome: Ongoing, progressing Problem: Fluid Imbalance (Acute Kidney Injury/Impairment) Goal: Optimal Fluid Balance Outcome: Ongoing, progressing Note: Pt remains on 1.2 L fluid restriction. Pt compliant at this time. Problem: Fall Injury Risk Goal: Absence of Fall and Fall-Related Injury Outcome: Ongoing, progressing lan of Care - Patria Chew RN - 04/22/2019 11:55 AM PSTCM following for discharge planning, Pt will disc harge to home when medically stable. Pt currently using home o2 and dialysis M/W/F. No other CM needs anticipated for discharge.Electronically signed by Patria Norman RN at 2019 11:57 AM PSTPlan of Care - Paco Paulino RN - 04/22/2019 11:49 AM PST Problem: Fluid Imbalance (Acute Kidney Injury/Impairment) Goal: Optimal Fluid Balance Outcome: Ongoing, progressing Problem: Fall Injury Risk Goal: Absence of Fall and Fall-Related Injury Outcome: Ongoing, progressing Patient is A&OX4, c/o pain throughout shift-please see MAR. This RN discussed with MD yvrose finch discontinuing IV dilaudid and continuing po NORCO. MD stated he would like to continue IV dilaudid for breakthrough pain if PO NORCO is ineffective. Patient is IND in the room an d utilizes call light appropriately. Patient completed dialysis this shift. A total of 3L of fluid was removed per bisque finisher report. End of shift review complete. Toño OSEI lan of Guille Barrientos RN - 04/22/2019 5:38 AM PST Problem: Fall Injury Risk Goal: Absence of Fall and Fall-Related Injury Note: Pt is independent No injuries have occurred. She has been alert and oriented x4, VSS, she has been medicated x2 for pain with [place] and dilaudid IV. No other acute changes from prev assessment and will continue to monitor Guille phelps RN lan of Paco Ramirez RN - 04/21/2019 10:58 AM PST Problem: Fluid Imbalance (Acute Kidney Injury/Impairment) Goal: Optimal Fluid Balance Outcome: Ongoing, progressing Problem: Fall Injury Risk Goal: Absence of Fall and Fall-Related Injury Outcome: Ongoing, progressing Patient is A&OX4, VSS. Patient did c/o pain, please see MAR for PRN medication administrat ion. Patient ambulated throughout hallway this shift. Otherwise no acute changes. End of matthew ft review complete. PACO PAULINO RN lan of Hannah Rosales RN - 04/21/2019 6:28 AM PSTPt AOx4. VSS. Afebrile. No acute changes from initial shift assessment. Will pass all cares to day shift RN. Chart review complete. Hannah Kimball RN. Problem: Adult Inpatient Plan of Care Goal: Optimal Comfort and Wellbeing Outcome: Ongoing, progressing Note: Patient medicated for pain and nausea per MAR. Relief noted. Will continue to monitor and i ntervene when necessary. Problem: Fall Injury Risk Goal: Absence of Fall and Fall-Related Injury Outcome: Ongoing, progressing Note: Call light in reach. Patient independent in room and calls appropriately. Patient room near nurses station. Bed in lowest position. Wheels locked. Side rails x4. Non-skid socks on whe n ambulating. Patient visualized hourly. lan of Care - Paco Churchill RN - 04/20/2019 6:08 PM PST Problem: Adult Inpatient Plan of Care Goal: Plan of Care Review Outcome: Ongoing, progressing Problem: Fluid Imbalance (Acute Kidney Injury/Impairment) Goal: Optimal Fluid Balance Outcome: Ongoing, progressing Patient is A&OX4, VSS. Patient did c/o pain this shift, please see PRN MAY. Patient is a on e person SBA to bathroom. Patient received dialysis this shift, 2L removed. Patient is updat ed on plan of care and all medications administered. Patient was very compliant with fluid r estriction this shift. End of shift review complete. PACO PAULINO RN lan of Care - Hannah Layc RN - 04/20/2019 5:58 AM PSTPt AOx4. VSS. Afebrile. Dialysis this AM. No other acute changes from initial shift assessment. Will pass all cares to day shift RN. Chart review complete. Hannah Kimball RN. Problem: Adult Inpatient Plan of Care Goal: Optimal Comfort and Wellbeing Outcome: Ongoing, progressing Note: Patient medicated for pain and nausea per MAY. Relief noted. Will continue to monitor and i ntervene when necessary. Problem: Fluid Imbalance (Acute Kidney Injury/Impairment) Goal: Optimal Fluid Balance Outcome: Ongoing, progressing Note: 1.2 L fluid restriction maintained. Dialysis this AM. Problem: Fall Injury Risk Goal: Absence of Fall and Fall-Related Injury Outcome: Ongoing, progressing Note: Call light in reach. Patient room near nurses station. Patient independent in room. Bed in lowest position. Wheels locked. Side rails x3. Non-skid socks on when ambulating. Patient vi sualized hourly. lan of Care - Nestor Chavez RN - 04/19/2019 6:41 PM PSTBps decreased this shift, now in 90-100s. Pt c omplaining of nausea today, zofran and phergan given, minimal relief. Pt complaining of R si ded chest pain which worsens with breathing, Dilaudid given 2x with adequate relief. Pt received dialysis today, removed 2.5L. Pt also had thoracentesis today, removed 1.5L. Pt continuing to have SOB, but states it has improved since admission. Pt remains on 3 L O2 , O2 sats in low 90s. Problem: Adult Inpatient Plan of Care Goal: Plan of Care Review Outcome: Ongoing, progressing Goal: Optimal Comfort and Wellbeing Outcome: Ongoing, progressing Problem: Fluid Imbalance (Acute Kidney Injury/Impairment) Goal: Optimal Fluid Balance Outcome: Ongoing, progressing Note: Pt received HD 04/18/19, pt to receive HD 04/19 & 04/20. Thoracentesis ordered to remove fluid around lung. End of shift chart check complete. NESTOR SALMON RN lan of Care - Jae Tapia RN - 04/19/2019 5:10 AM PSTPt received HD this noc shift, 2 L removed. Pt a /ox4, afebrile, c/o headache. SBP 150s-160s, HR 100s-70s, Pt maintaining O2 sats on 2 L NC. Pt medicated for c/o headache x2, medicated for c/o nausea x1. No acute changes from initial assessment. Chart review complete. Jae Tapia RN lan of Jae Figueroa RN - 04/18/2019 11:28 PM PST Problem: Adult Inpatient Plan of Care Goal: Plan of Care Review Outcome: Ongoing, progressing Pt states understanding of current plan of care. Pt received HD today, scheduled for HD and 04/20. Pt may also have thoracentesis during this admit Problem: Fluid Imbalance (Acute Kidney Injury/Impairment) Goal: Optimal Fluid Balance Outcome: Ongoing, progressing Pt completed HD at 2200, 2 L offElectronically signed by Jae Tapia RN at 2019 11:30 PM PSTPlan of Padmini Chau MSW - 04/18/2019 8:36 PM PSTCare Managemen t Initial Assessment Readmission Risk: HIGH Met with patient, alone in room, patient oriented though appears weak, with depressed mood, limited in participation with this CM. Patient states she lives alone, has mother nearby, i s independent, has access to OP services and medications and is scheduled for dialysis in //Mon at [facility] but misses often, she said "i'm working on it." Status Prior to Admission or Illness Arrival From: home or self-care Lives With: alone Living Arrangements: apartment(2nd level apartment) Caregiver For: no one Patient s Caregiver: (no one) Functional Status: Caregiving Concerns: (patient reports no concerns, no family at bedside) Home Accessibility: no concerns Transportation Available: family or friend will provide Able to return to prior living: yes Care Management Concerns Last discharge date: Readmission Within Last 30 Days: no previous admission in last 30 days Is Readmission Diagnosis Related to or Same As: Previous Discharging Facility: Previous Discharge Destination From: PCP: Jonathan Alonso MD Contact Information Family Contact Information: Name: patient cell Pager: Fax: DC Needs Assessment Current Outpt/Agency/Support Groups: outpatient hemodialysis (specify)([facility] a///Mon) Community Agency Name: Anticipated Changes Related to Illness: none Concerns to be Addressed: compliance issue concerns(admissions due to missing dialysis) Services Anticipated at Discharge: none, education services Equipment Used at Home: oxygen(states she does not use it often) Equipment Needed after Discharge: Durable Medical Equipment Provider: (In Home Medical) Pharmacy/Medication Needs: ([facility] or [facility], [place]) Transportation Needs: family or friend will provide Initial Plan Anticipated Discharge Disposition: home Expected DC Date: yes Steps Taken Toward Discharge: Next Steps: Notes: Electronically signed: DORON FIGUEREDO 04/18/2019 8:36 PM lan of Nestor Williamson RN - 04/18/2019 6:30 PM PSTPt oriented to room. Bps 190-200 systolic upon admission to unit. Clonidine give n per MD order. MEWS score was 5, rechecked vitals per protocol. Pt beginning to receive cole lysis now. Problem: Adult Inpatient Plan of Care Goal: Plan of Care Review Outcome: Ongoing, progressing Problem: Fluid Imbalance (Acute Kidney Injury/Impairment) Goal: Optimal Fluid Balance Outcome: Ongoing, progressing Note: Clonidine administered for Bps in 190s, pt will get dialysis this evening. End of shift chart check complete. NESTOR SALMON RN documented in this en counter Plan of Treatment + +------+--------+ + + | Name | Type | Priori | Associated Diagnoses | Date/Time | | | | ty | | | + +------+--------+ + + | ED INFORMATION | SHEILA | Routin | | 04/18/2019 11:39 AM | | EXCHANGE | | e | | PST | + +------+--------+ + + documented as of this encounter Procedures + +--------+ + + + | Procedure Name | Priori | Date/Time | Associated Diagnosis | Comments | | | ty | | | | + +--------+ + + + | US GUIDED | Routin | 04/23/2019 | | Results for this | | THORACENTESIS WO | e | 11:31 AM | | procedure are in the | | CHEST TUBE | | PST | | results section. | + +--------+ + + + | XR CHEST INSPIRATION | STAT | 04/23/2019 | | Results for this | | AND EXPIRATION | | 10:27 AM | | procedure are in the | | | | PST | | results section. | + +--------+ + + + | COMPREHENSIVE | STAT | 04/22/2019 | | Results for this | | METABOLIC PANEL | | 9:14 AM | | procedure are in the | | | | PST | | results section. | + +--------+ + + + | ECG 12 LEAD | INOCENCIO | 04/22/2019 | | Results for this | | | | 8:19 AM | | procedure are in the | | | | PST | | results section. | + +--------+ + + + | XR CHEST 1 VIEW | Routin | 04/22/2019 | | Results for this | | | e | 8:10 AM | | procedure are in the | | | | PST | | results section. | + +--------+ + + + | TROPONIN I | STAT | 04/22/2019 | | Results for this | | | | 7:55 AM | | procedure are in the | | | | PST | | results section. | + +--------+ + + + | CK-MB | STAT | 04/22/2019 | | Results for this | | | | 7:55 AM | | procedure are in the | | | | PST | | results section. | + +--------+ + + + | BASIC METABOLIC | Routin | 04/20/2019 | | Results for this | | PANEL | e | 3:14 PM | | procedure are in the | | | | PST | | results section. | + +--------+ + + + | BASIC METABOLIC | STAT | 04/20/2019 | | Results for this | | PANEL | | 9:33 AM | | procedure are in the | | | | PST | | results section. | + +--------+ + + + | XR CHEST INSPIRATION | STAT | 04/19/2019 | | Results for this | | AND EXPIRATION | | 12:01 PM | | procedure are in the | | | | PST | | results section. | + +--------+ + + + | US GUIDED | Routin | 04/19/2019 | | Results for this | | THORACENTESIS WO | e | 11:22 AM | | procedure are in the | | CHEST TUBE | | PST | | results section. | + +--------+ + + + | CELL COUNT, BODY | Routin | 04/19/2019 | | Results for this | | FLUID | e | 10:26 AM | | procedure are in the | | | | PST | | results section. | + +--------+ + + + | PROTEIN, BODY FLUID | Routin | 04/19/2019 | | Results for this | | | e | 10:26 AM | | procedure are in the | | | | PST | | results section. | + +--------+ + + + | LACTATE | Routin | 04/19/2019 | | Results for this | | DEHYDROGENASE, BODY | e | 10:26 AM | | procedure are in the | | FLUID | | PST | | results section. | + +--------+ + + + | CBC WITH | Routin | 04/19/2019 | | Results for this | | DIFFERENTIAL | e | 4:49 AM | | procedure are in the | | | | PST | | results section. | + +--------+ + + + | PROTEIN, TOTAL | Routin | 04/19/2019 | | Results for this | | | e | 4:49 AM | | procedure are in the | | | | PST | | results section. | + +--------+ + + + | LACTATE | Routin | 04/19/2019 | | Results for this | | DEHYDROGENASE | e | 4:49 AM | | procedure are in the | | | | PST | | results section. | + +--------+ + + + | BASIC METABOLIC | Routin | 04/19/2019 | | Results for this | | PANEL | e | 4:49 AM | | procedure are in the | | | | PST | | results section. | + +--------+ + + + | XR CHEST 2 VIEWS | INOCENCIO | 04/18/2019 | | Results for this | | | | 2:03 PM | | procedure are in the | | | | PST | | results section. | + +--------+ + + + | HEPATITIS B SURFACE | STAT | 04/18/2019 | | Results for this | | AB, QUANT | | 1:32 PM | | procedure are in the | | | | PST | | results section. | + +--------+ + + + | HEPATITIS B CORE AB, | STAT | 04/18/2019 | | Results for this | | TOTAL | | 1:32 PM | | procedure are in the | | | | PST | | results section. | + +--------+ + + + | HEPATITIS B SURFACE | STAT | 04/18/2019 | | Results for this | | AG | | 1:32 PM | | procedure are in the | | | | PST | | results section. | + +--------+ + + + | PROTIME INR | STAT | 04/18/2019 | | Results for this | | | | 1:32 PM | | procedure are in the | | | | PST | | results section. | + +--------+ + + + | D-DIMER | STAT | 04/18/2019 | | Results for this | | | | 1:32 PM | | procedure are in the | | | | PST | | results section. | + +--------+ + + + | CBC WITH | STAT | 04/18/2019 | | Results for this | | DIFFERENTIAL | | 1:32 PM | | procedure are in the | | | | PST | | results section. | + +--------+ + + + | PHOSPHORUS | Add-On | 04/18/2019 | | Results for this | | | | 1:32 PM | | procedure are in the | | | | PST | | results section. | + +--------+ + + + | COMPREHENSIVE | STAT | 04/18/2019 | | Results for this | | METABOLIC PANEL | | 1:32 PM | | procedure are in the | | | | PST | | results section. | + +--------+ + + + | ECG 12 LEAD | Routin | 04/18/2019 | | Results for this | | | e | 11:43 AM | | procedure are in the | | | | PST | | results section. | + +--------+ + + + | ED INFORMATION | Routin | 04/18/2019 | | | | EXCHANGE | e | 11:39 AM | | | | | | PST | | | + +--------+ + + + +---+--------+ | | | | | Proced | | | ure | | | Note - | | | Cedric, | | | Lab In | | | | | | Hlseve | | | n - | | | 04/18/ | | | 2019 | | | 11:40 | | | AM PST | | | | | | [...] ON?/ | | | | | | 0 | | | 11:38? | | | BLANDON | | | ON, | | | DARA | | | | | | R?MRN: | | | | | | [id number] | | | [id number] | | | riteri | | | a Met | | | 10 in | | | 12 | | | Histor | | | y of | | | Sepsis | | | Dx | | | Care | | | [...] | | | St. | | | [facility] | | | y | | | [...] | | | St. | | | [facility] | | | y | | | [...] | | | St. | | | [facility] | | | y | | | [...] | | | gs | | | Histor | | | y of | | | Sepsis | | | - | | | Patien | | | t has | | | receiv | | | ed a | | | diagno | | | sis of | | | | | | Sepsis | | | from | | | an | | | acute | | | or | | | post-a | | | cute | | | settin | | | g. | | | Apply | | | approp | | | riate | | | clinic | | | al | | | planni | | | ng | | | practi | | | elsi; | | | to | | | learn | | | more | | | visit | | | [email or web address] | | | v/seps | | | is/cli | | | nicalt | | | ools / | | | | | | Attrib | | | uted | | | By: | | | Collec | | | tive | | | Medica | | | l / | | | Attrib | | | uted | | | On: | | | 01/02/ | | | 2020 | | | | | | [facility] | | | ED | | | Dispar | | | ity | | | Measur | | | e - | | | [facility] | | | has | | | [...] | | | s. | | | [facility] | | | | | | Health [...] | | | By: | | | [facility] | | | | | | Health | | | | | | Author | | | ity | | | (OHA) | | | / | | | Attrib | | | uted | | | On: | | | 01/14/ | | | 2020 | | | [...] | | | St. | | | [facility] | | | y | | | Hospit | | | al 21 | | | 0 | | | Total | | | 29 0 | | | Note: | | [...] | | out | | | of 29 | | | in the | | [...] | | | ncy | | | Feb 8, | | | 2020 | | | [facility] | | | [facility] | | | y H. | | [...] | | | status | | | Rhys | | | 7, | | | 2020 | | | [facility] | [facility] | [facility] | | | y H. | | [...] status | | | | | | Chest | | | [...] | | | St. | | | [facility] | | | y H. | | [...] | | | St. | | | [facility] | | | y H. | | [...] | | | St. | | | [facility] | | | y H. | | [...] | | | St. | | | [facility] | | | y H. | | [...] | | | a | | | Recent | | | [...] | | | [place] | | | [place] | | | al | | | Medici | | | ne | | | Pleura | | | l | | | effusi | | | on, | | | not | | | elsewh | | | ere | | | classi | | | fied | | | Oth | | | disord | | | ers of | | | | | | plasma | | | -prote | | | in | | | metabo | | | lism, | | | NEC | | | End | | | [...] | | | n | | | Anemia | | | [...] | | | [place] | | | [place] | | | al | | | [...] | | systol | | | ic and | | | | | | diasto | | | lic | | | hrt | | | fail | | | End | | | [...] | | | MD | | | Tobacco Curer | | | al | | | [...] | | | /notif | | | [id number] | | | [id number] | | | [id number] | | | [phone] | | | [id number] | | | [id number] | | | 3d | | | PLEASE | | | [...] | +---+--------+ documented in this encounter Results US Guided Thoracentesis wo Chest Tube (04/23/2019 11:31 AM PST) + + | Specimen | + + | | + + + + + | Impressions | Performed At | + + + | Uncomplicated thoracentesis. 1,000 ml of clear yellow fluid was | [facility] | | removed. Dictated by: Javon Connell Nicole Signed by: | | | Eliza Fish Matthew Sign Date/Time: 04/23/2019 5:07 PM The | | | radiologist has reviewed the images and edited/approved the report. | | | For interventional procedures, the signing radiologist was present | | | for the esquivel portions of the exam. | | + + + + + + | Narrative | Performed At | + + + | ULTRASOUND GUIDED RIGHT THORACENTESIS CLINICAL INFORMATION: | [facility] | | Right pleural effusion PROCEDURE: Prior to the procedure, risks | [...] | | space is punctured with an 5-Bangladeshi thoracentesis catheter. Fluid is | | | aspirated without complication. She reported feeling SOB after 1 | | | liter was removed and requested the procedure be terminated, which it | | | was at that time. No immediate complications. Estimated Blood | | | Loss: Minimal. | | + + + + + | Procedure Note | + + | Cedric, Rad Results In 04/23/2019 5:11 PM PST | | ULTRASOUND GUIDED RIGHT THORACENTESIS | | | | CLINICAL INFORMATION: | | Right pleural effusion | | | | PROCEDURE: | | Prior to [...] the pleural space is punctured with an 5-Bangladeshi | | thoracentesis catheter. Fluid is aspirated without complication. She | | reported feeling SOB after 1 liter was removed and requested the | | procedure be terminated, which it was at that time. No immediate | | complications. | | | | Estimated Blood Loss: Minimal. | | | | IMPRESSION: | | Uncomplicated thoracentesis. 1,000 ml of clear yellow fluid was | | removed. | | | | Dictated by: Javon Connell Nicole | | | | Signed by: Eliza Fish Matthew | | Sign Date/Time: 04/23/2019 5:07 PM | | | | The radiologist has reviewed the images and edited/approved | | the report. For interventional procedures, the signing | | radiologist was present for the esquivel portions of the exam. | + + + +---------+ + + | Performing | Address | City/State/Zipcode | Phone Number | | Organization | | | | + +---------+ + + | [facility] | | | | + +---------+ + + XR Chest Inspiration and Expiration (04/23/2019 10:27 AM PST) + + | Specimen | + + | | + + + + + | Impressions | Performed At | + + + | No pneumothorax. Signed by: Eliza Echols, Fely Olivares | [facility] | | Date/Time: 04/23/2019 11:11 AM | | + + + + + + | Narrative | Performed At | + + + | XR CHEST INSPIRATION AND EXPIRATION CLINICAL INFORMATION: | [facility] | | Post thoracentesis. COMPARISON: XR CHEST 1 VIEW (04/22/2019); XR | | | CHEST INSPIRATION AND EXPIRATION (04/19/2019); US GUIDED THORACENTESIS | | | WO CHEST TUBE (04/19/2019); FINDINGS: Right perihilar | | | atelectasis. Decrease size of the right pleural effusion. No | | | postprocedural pneumothorax. | | + + + + + | Procedure Note | + + | Cedric, Rad Results In - 04/23/2019 11:15 AM PST | | XR CHEST INSPIRATION AND EXPIRATION | | | | CLINICAL INFORMATION: | | Post thoracentesis. | | | | COMPARISON: | | XR CHEST 1 VIEW (04/22/2019); XR CHEST INSPIRATION AND EXPIRATION | | (04/19/2019); US GUIDED THORACENTESIS WO CHEST TUBE (04/19/2019); | | | | FINDINGS: | | Right perihilar atelectasis. Decrease size of the right pleural | | effusion. No postprocedural pneumothorax. | | | | IMPRESSION: | | No pneumothorax. | | | | | | | | | | Signed by: Eliza Echols Julie | | Sign Date/Time: 04/23/2019 11:11 AM | + + + +---------+ + + | Performing | Address | City/State/Zipcode | Phone Number | | Organization | | | | + +---------+ + + | [facility] | | | | + +---------+ + + Comprehensive Metabolic Panel (04/22/2019 9:14 AM PST) + + + + + [...] 101 | 99 - 109 mmol/L | [facility] [...] + + + + | Glucose | 113 (H) | 65 - 99 mg/dL | [facility] | | | | | | LABORATORY | | + + + + + + | BUN | 28 (H) | 8 - 25 mg/dL | [facility] | | | | | | LABORATORY | | + + + + + + | Creatinine | 6.20 (H) | 0.50 - 1.00 | [facility] | | | | | mg/dL | LABORATORY | | + + + + + + | BUN/Creatin | 5 | | [facility] | | | ine Ratio | | | LABORATORY | | + + + + + + | Calcium | 9.1 | 8.5 - 10.5 | [facility] | | | | | mg/dL | LABORATORY | | + + + + + + | Protein, | 5.0 (L) | 6.3 - 8.2 g/dL | [facility] | | | Total | | | LABORATORY | | + + + + + + | Albumin | 3.2 (L) | 3.6 - 5.0 g/dL | [facility] | | | | | | LABORATORY | | + + + + + + | Globulin | 1.8 | 1.3 - 4.9 g/dL | [facility] | | | | | | LABORATORY | | + + + + + + | A/G Ratio | 1.8 | 1.0 - 2.4 | [facility] | | | | | | LABORATORY | | + + + + + + | BILIRUBIN, | 0.5 | 0.1 - 1.5 mg/dL | [facility] | | | TOTAL | | | LABORATORY | | + + + + + + | ALK PHOS | 88 | 35 - 115 U/L | [facility] | | | | | | LABORATORY | | + + + + + + | AST | 17 | 10 - 45 U/L | [facility] | | | | | | LABORATORY | | + + + + + + | ALT | 17 | 10 - 65 U/L | [facility] | | | | | | LABORATORY | | + + + + + + | Estimated | 8 (L)Comment: GFR <60: | >60 | [facility] | | | GFR | CHRONIC KIDNEY [...] | | | | | | MDRD IDOK traceable | | | | | | equation.Testing | | | | | | performed at [facility];[address] | | | | | | [facility];[place], [place] | | | | | | [address] | | | | + + + + + + + + | Specimen | + + | Blood | + + + + + + + | Performing | Address | City/State/Zipcode | Phone Number | | Organization | | | | + + + + + | [facility] | [address] | [place] [address] | [phone] | + + + + + ECG 12 lead (04/22/2019 8:19 AM PST) + + + + + + | Component | Value | Ref Range | Performed | Pathologist | | | | | At | Signature | + + + + + + | VENTRICULAR | 69 | BPM | [facility] | | | RATE EKG | | | | | + + + + + + | ATRIAL RATE | 69 | BPM | [facility] | | + + + + + + | P-R | 176 | ms | [facility] | | | INTERVAL | | | | | + + + + + + | QRS | 94 | ms | [facility] | | | DURATION | | | | | + + + + + + | Q-T | 398 | ms | [facility] | | | INTERVAL | | | | | + + + + + + | Q-T | 426 | ms | [facility] | | | INTERVAL | | | | | | (CORRECTED) | | | | | + + + + + + | P WAVE AXIS | 16 | degrees | [facility] | | + + + + + + | QRS AXIS | 19 | degrees | [facility] | | + + + + + + | T AXIS | 148 | degrees | [facility] | | + + + + + + | INTERPRETAT | Normal sinus | | [facility] | | | ION TEXT | rhythmNonspecific T wave | | | | | | abnormalityAbnormal ECG | | | | | | Confirmed by Elissa | | | | | | Maurice ALMEIDA ([id number]) on | | | | | | 04/22/2019 12:26:15 PM | | | | + + [...] +---------+ + + XR Chest 1 Vw (04/22/2019 8:10 AM PST) + + | Specimen | + + | | + + + + + | Impressions | Performed At | + + + | 1. Persistent mild to moderate cardiac enlargement, with persistent | [facility] | | right mid to lower lung zone infiltrate or atelectasis, with | | | increasing moderate right pleural effusion. Signed by: | | | Eliza Bustos, Quang Sign Date/Time: 04/22/2019 8:20 AM | | + + + + + + | Narrative | Performed At | + + + | CHEST ONE VIEW CLINICAL INFORMATION: Congestive heart | [facility] | | failure and right plural effusion. COMPARISON: XR CHEST | | | INSPIRATION AND EXPIRATION (04/19/2019); XR CHEST 2 VIEWS (04/18/2019); | | | XR CHEST AP PORTABLE (01/24/2019); FINDINGS: Mild to moderate | | | cardiac enlargement. Right heart border is not well defined. | | | Increasing moderate right pleural effusion. Persistent infiltrate | | | in the right mid to lower lung zone. Left lung is clear. No | | | pneumothorax. | | + + + + + | Procedure Note | + + | Cedric, Rad Results In - 04/22/2019 8:24 AM PST | | CHEST ONE VIEW | | | | CLINICAL INFORMATION: | | Congestive heart failure and right plural effusion. | | | | COMPARISON: | | XR CHEST INSPIRATION AND EXPIRATION (04/19/2019); XR CHEST 2 VIEWS | | (04/18/2019); XR CHEST AP PORTABLE (01/24/2019); | | | | FINDINGS: | | Mild to moderate cardiac enlargement. Right heart border is not well | | defined. Increasing moderate right pleural effusion. Persistent | | infiltrate in the right mid to lower lung zone. Left lung is clear. | | No pneumothorax. | | | | IMPRESSION: | | 1. Persistent mild to moderate cardiac enlargement, with persistent | | right mid to lower lung zone infiltrate or atelectasis, with increasing | | moderate right pleural effusion. | | | | | | | | | | Signed by: Eliza Bustos Shawn | | Sign Date/Time: 04/22/2019 8:20 AM | + + + +---------+ + + | Performing | Address | City/State/Zipcode | Phone Number | | Organization | | | | + +---------+ + + | [facility] | | | | + +---------+ + + CK-MB (04/22/2019 7:55 AM PST) + + + + + + | Component | Value | Ref Range | Performed | Pathologist | | | | | At | Signature | + + + + + + | CK-MB | 6.3 (H) | 0.5 - 3.6 ng/mL | [facility] | | | | | | LABORATORY | | + + + + + + | CK Index | UNABLE TO | | [facility] | | | | CALCULATEComment: | | LABORATORY | | | | Testing performed at | | | | | | [facility];[address] [place] [address] | | | | | | Blvd;[place] [address] | | | | + + + + + + + + | Specimen | + + | Blood | + + + + + + + | Performing | Address | City/State/Zipcode | Phone Number | | Organization | | | | + + + + + | [facility] | [address] | [place] [address] | [phone] | + + + + + Troponin I (04/22/2019 7:55 AM PST) + + + + + + | Component | Value | Ref Range | Performed | Pathologist | | | | | At | Signature | + + + + + + | Troponin I | 0.073 (H)Comment: 0.04 | 0.00 - 0.04 | [facility] | | | | ng/mL or less [...] at | | | | | | [facility];[address] [facility] [[email or web address] | | | | | | [address];[place] [address] | | | | + + + + + + + + | Specimen | + + | Blood | + + + + + + + | Performing | Address | City/State/Zipcode | Phone Number | | Organization | | | | + + + + + | [facility] | [address] | [place] [address] | [phone] | + + + + + Basic Metabolic Panel (04/20/2019 3:14 PM PST) + + + + + [...] + + + | CO2 | 34 (H) | 23 - 32 mmol/L | [facility] | | | | | | LABORATORY | | + + + + + + | Anion Gap | 9 | 5 - 20 mmol/L | [facility] | | | | | | LABORATORY | | + + + + + + | Glucose | 104 (H) | 65 - 99 mg/dL | [facility] | | | | | | LABORATORY | | + + + + + + | BUN | 12 | 8 - 25 mg/dL | [facility] | | | | | | LABORATORY | | + + + + + + | Creatinine | 3.03 (H) | 0.50 - 1.00 | [facility] [...] + + + + | Estimated | 19 (L)Comment: GFR <60: | >60 | [facility] [...] | | | | | performed at [facility];[address] | | | | | | [address];[place] | | | | | | [address] | | | | + + + + + + + + | Specimen | + + | | + + + + + + + | Performing | Address | City/State/Zipcode | Phone Number | | Organization | | | | + + + + + | [facility] | [address] | [place] [address] | [phone] | + + + + + Basic Metabolic Panel (04/20/2019 9:33 AM PST) + + + + + [...] + + + + | Cl | 111 (H) | 99 - 109 mmol/L | [facility] [...] + + + + | Glucose | 178 (H) | 65 - 99 mg/dL | [facility] | | | | | | LABORATORY | | + + + + + + | BUN | 40 (H) | 8 - 25 mg/dL | [facility] | | | | | | LABORATORY | | + + + + + + | Creatinine | 1.93 (H) | 0.50 - 1.00 | [facility] | | | | | mg/dL | LABORATORY | | + + + + + + | BUN/Creatin | 21 | | [facility] | | | ine Ratio | | | LABORATORY | | + + + + + + | Calcium | 9.3 | 8.5 - 10.5 | [facility] | | | | | mg/dL | LABORATORY | | + + + + + + | Estimated | 32 (L)Comment: GFR <60: | >60 | [facility] [...] | | | | | performed at [facility] | | | | | | [facility];[place], [place] | | | | | | [address] | | | | + + + + + + + + | Specimen | + + | Blood | + + + + + + + | Performing | Address | City/State/Zipcode | Phone Number | | Organization | | | | + + + + + | [facility] | [address] | [place] [address] | [phone] | + + + + + XR Chest Inspiration and Expiration (04/19/2019 12:01 PM PST) + + | Specimen | + + | | + + + + + | Impressions | Performed At | + + + | 1. No pneumothorax. 2. Decrease in now small to moderate | [facility] | | right-sided effusion. Signed by: Eliza Galvan David | | | Sign Date/Time: 04/19/2019 12:29 PM | | + + + + + + | Narrative | Performed At | + + + | XR CHEST INSPIRATION AND EXPIRATION CLINICAL INFORMATION: | [facility] | | Post thoracentesis 1.5 L removed from right. COMPARISON: XR CHEST | | | 2 VIEWS (04/18/2019); XR CHEST AP PORTABLE (01/24/2019); FINDINGS: | | | No pneumothorax after right-sided thoracentesis. Interval decrease | | | in a now small to moderate right-sided effusion, previously large. | | | Clear left lung. No left-sided effusion or pneumothorax. | | | Unchanged cardiomegaly.. | | + + + + + | Procedure Note | + + | Cedric, Rad Results In 04/19/2019 12:33 PM PST | | XR CHEST INSPIRATION AND EXPIRATION | | | | CLINICAL INFORMATION: | | Post thoracentesis 1.5 L removed from right. | | | | COMPARISON: | | XR CHEST 2 VIEWS (04/18/2019); XR CHEST AP PORTABLE (01/24/2019); | | | | FINDINGS: | | No pneumothorax after right-sided thoracentesis. Interval decrease in | | a now small to moderate right-sided effusion, previously large. Clear | | left lung. No left-sided effusion or pneumothorax. Unchanged | | cardiomegaly.. | | | | IMPRESSION: | | 1. No pneumothorax. | | 2. Decrease in now small to moderate right-sided effusion. | | | | | | | | | | Signed by: Eliza Galvan David | | Sign Date/Time: 04/19/2019 12:29 PM | + + + +---------+ + + | Performing | Address | City/State/Zipcode | Phone Number | | Organization | | | | + +---------+ + + | [facility] | | | | + +---------+ + + US Guided Thoracentesis wo Chest Tube (04/19/2019 11:22 AM PST) + + | Specimen | + + | | + + + + + | Impressions | Performed At | + + + | Uncomplicated thoracentesis. 1,500 ml of clear yellow fluid was | [facility] | | removed. Dictated by: Javon Connell Nicole Signed by: | | | Eliza Galvan David Sign Date/Time: 04/19/2019 3:52 PM The | | | radiologist has reviewed the images and edited/approved the report. | | | For interventional procedures, the signing radiologist was present | | | for the esquivel portions of the exam. | | + + + + + + | Narrative | Performed At | + + + | ULTRASOUND GUIDED RIGHT THORACENTESIS CLINICAL INFORMATION: | [facility] | | Symptomatic large right pleural effusion. PROCEDURE: Prior to the | | | procedure, risks and benefits were explained to the patient and | | | informed written and verbal consent obtained. Patient was placed in | | | upright position and location adjacent to pleural fluid marked on the | | | skin using ultrasound guidance and the area prepped and draped in | | | the usual sterile fashion. Using lidocaine for local anesthesia, the | | | pleural space is punctured with an 5-Bangladeshi thoracentesis catheter. | | | Fluid is aspirated without complication. The patient tolerated the | | | procedure well. No immediate complications. Estimated Blood Loss: | | | Minimal. | | + + + + + | Procedure Note | + + | Cedric, Rad Results In 04/19/2019 3:55 PM PST | | ULTRASOUND GUIDED RIGHT THORACENTESIS | | | | CLINICAL INFORMATION: | | Symptomatic large right pleural effusion. | | | | PROCEDURE: | | Prior to [...] the pleural space is punctured with an 5-Bangladeshi | | thoracentesis catheter. Fluid is aspirated without complication. The | | patient tolerated the procedure well. No immediate complications. | | | | Estimated Blood Loss: Minimal. | | | | IMPRESSION: | | Uncomplicated thoracentesis. 1,500 ml of clear yellow fluid was | | removed. | | | | Dictated by: Javon Connell Nicole | | | | Signed by: Eliza Galvan David | | Sign Date/Time: 04/19/2019 3:52 PM | | | | The radiologist has reviewed the images and edited/approved | | the report. For interventional procedures, the signing | | radiologist was present for the esquivel portions of the exam. | + + + +---------+ + + | Performing | Address | City/State/Zipcode | Phone Number | | Organization | | | | + +---------+ + + | [facility] | | | | + +---------+ + + Protein, Body Fluid (04/19/2019 10:26 AM PST) + + + + + + | Component | Value | Ref Range | Performed | Pathologist | | | | | At | Signature | + + + + + + | Protein, | 2.6Comment: This is not | g/dL | [facility] | | | Body Fluid | a sleeve turner validated | | LABORATORY | | | | sample type for this | | | | | | method. No | | | | | | referenceranges have | | | | | | been established.Testing | | | | | | performed at [facility], [address] | | | | | [address], | | | | | | [place] [address] | | | | + + + + + + | SOURCE | THORACENTESIS | | [facility] | | | | FLUIDComment: Testing | | LABORATORY | | | | performed at [facility];[address] | | | | | | [address];[place] | | | | | | [address] | | | | + + + + + + + + | Specimen | + + | Body Fluid | + + + + + + + | Performing | Address | City/State/Zipcode | Phone Number | | Organization | | | | + + + + + | [facility] | [address] | [place] [address] | [phone] | + + + + + Cell Count, Body Fluid (04/19/2019 10:26 AM PST) + + + + + + | Component | Value | Ref Range | Performed | Pathologist | | | | | At | Signature | + + + + + + | Specimen | THORACENTESIS FLUID | | [facility] | | | [...] + + + + | Nucleated | 113 | /mm3 | [facility] | | | Cells, Body | | | LABORATORY | | | Fluid | | | | | + + + + + + | Red Blood | <2000 | /mm3 | [facility] | | | Cells, Body | | | LABORATORY | | | Fluid | | | | | + + + + + + | Neutrophils | 3 | % | [facility] | | | , Body | | | LABORATORY | | | Fluid | | | | | + + + + + + | % | 3 | % | [facility] | | | Lymphocytes | | | LABORATORY | | | , Body | | | | | | Fluid | | | | | + + + + + + | % | 88 | % | [facility] | | | Mononuclear | | | LABORATORY | | | | | | | | | Phagocytes, | | | | | | Body Fluid | | | | | + + + + + + | MESOTHELIAL | 6 | % | [facility] | | | CELLS | | | LABORATORY | | + + + + + + | Total Cells | 100Comment: Testing | | ANDREY | | | Counted | performed at [facility];[address] | | LABORATORY | | | | [address];[place], [place] | | | | | | [address] | | | | + + + + + + + + | Specimen | + + | Body Fluid | + + + + + + + | Performing | Address | City/State/Zipcode | Phone Number | | Organization | | | | + + + + + | [facility] | [address] | [place] [address] | [phone] | + + + + + Lactate dehydrogenase, body fluid (04/19/2019 10:26 AM PST) + + + + + + | Component | Value | Ref Range | Performed | Pathologist | | | | | At | Signature | + + + + + + | Lactate | 98Comment: This is not a | U/L | [facility] | | | Dehydrogena | sleeve turner validated | | LABORATORY | | | se, Body | sample type for this | | | | | Fluid | method. No | | | | | | referenceranges have | | | | | | been established.Testing | | | | | | performed at [facility], [address] | | | | | [address], | | | | | | [place] [address] | | | | + + + + + + + + | Specimen | + + | Body Fluid | + + + + + + + | Performing | Address | City/State/Zipcode | Phone Number | | Organization | | | | + + + + + | [facility] | [address] | [place] [address] | [phone] | + + + + + Protein, Total (04/19/2019 4:49 AM PST) + + + + + + | Component | Value | Ref Range | Performed | Pathologist | | | | | At | Signature | + + + + + + | Protein, | 6.4Comment: Testing | 6.3 - 8.2 g/dL | [facility] | | | Total | performed at [facility];[address] | | LABORATORY | | | | [address];[place] | | | | | | [address] | | | | + + + + + + + + | Specimen | + + | Blood | + + + + + + + | Performing | Address | City/State/Zipcode | Phone Number | | Organization | | | | + + + + + | [facility] | [address] | [place] [address] | [phone] | + + + + + Lactate Dehydrogenase (04/19/2019 4:49 AM PST) + + + + + + | Component | Value | Ref Range | Performed | Pathologist | | | | | At | Signature | + + + + + + | LDH TOTAL | 254 (H)Comment: Testing | 120 - 246 U/L | [facility] | | | | performed at [facility];[address] | | LABORATORY | | | | [address];[place] | | | | | | [address] | | | | + + + + + + + + | Specimen | + + | Blood | + + + + + + + | Performing | Address | City/State/Zipcode | Phone Number | | Organization | | | | + + + + + | [facility] | [address] | [place] [address] | [phone] | + + + + + CBC with Differential (04/19/2019 4:49 AM PST) + + + + + + | Component | Value | Ref Range | Performed | Pathologist | | | | | At | Signature | + + + + + + | WBC | 3.88 | 3.80 - 11.00 | [facility] | | | | | K/uL | LABORATORY | | + + + + + + | Red Blood | 3.02 (L) | 3.70 - 5.10 | [facility] | | | Cells | | M/uL | LABORATORY | | + + + + + + | Hemoglobin | 10.6 (L) | 11.3 - 15.5 | [facility] | | | | | g/dL | LABORATORY | | + + + + + + | Hematocrit | 34.1 | 34.0 - 46.0 % | [facility] | | | | | | LABORATORY | | + + + + + + | MCV | 112.9 (H) | 80.0 - 100.0 fl | [facility] | | | | | | LABORATORY | | + + + + + + | MCH | 35.1 (H) | 27.0 - 34.0 pg | [facility] | | | | | | LABORATORY | | + + + + + + | MCHC | 31.1 (L) | 32.0 - 35.5 | [facility] | | | | | g/dL | LABORATORY | | + + + + + + | RDW-SD | 61.9 (H) | 37 - 53 fl | [...] + + + + | % | 63.90 | % | [facility] | | | Neutrophils | | | LABORATORY | | + + + + + + | IMMATURE | 0.30 | % | [facility] | | | GRANULOCYTE | | | LABORATORY | | + + + + + + | % | 17.00 | % | [facility] | | | Lymphocytes | | | LABORATORY | | + + + + + + | Monocyte % | 4.90 | % | [facility] | | | | | | LABORATORY | | + + + + + + | Eosinophils | 13.40 | % | [facility] | | | % | | | LABORATORY | | + + + + + + | Basophils % | 0.50 | % | [facility] | | | | | | LABORATORY | | + + + + + + | Neutrophils | 2.48 | 1.90 - 7.40 | [facility] | | | , Absolute | | K/uL | LABORATORY | | + + + + + + | IMMATURE | 0.01Comment: NOTE NEW | 0.00 - 0.07 | [facility] | | | GRANS AB | REFERENCE RANGE | K/uL | LABORATORY | | + + + + + + | Absolute | 0.66 (L) | 1.00 - 3.90 | [facility] | | | Lymphocytes | | K/uL | LABORATORY | | + + + + + + | Absolute | 0.19 | 0.00 - 0.80 | [facility] | | | Monocytes | | K/uL | LABORATORY | | + + + + + + | Eosinophils | 0.52 (H) | 0.00 - 0.50 | [facility] | | | , Absolute | | K/uL | LABORATORY | | + + + + + + | Basophils, | 0.02Comment: Testing | 0.00 - 0.10 | [facility] | | | Absolute | performed at [facility], [address] | K/uL | LABORATORY | | | | [place], | | | | | | [place] [address] | | | | + + + + + + + + | Specimen | + + | Blood | + + + + + + + | Performing | Address | City/State/Zipcode | Phone Number | | Organization | | | | + + + + + | [facility] | [address] | [place] [address] | [phone] | + + + + + Basic Metabolic Panel (04/19/2019 4:49 AM PST) + + + + + [...] | 4.8 | 3.5 - 4.9 | [facility] | | | | | mmol/L | LABORATORY | | + + + + + + | Cl | 95 (L) | 99 - 109 mmol/L | [...] + + + + | Glucose | 82 | 65 - 99 mg/dL | [facility] | | | | | | LABORATORY | | + + + + + + | BUN | 38 (H) | 8 - 25 mg/dL | [facility] | | | | | | LABORATORY | | + + + + + + | Creatinine | 6.2 (H) | 0.50 - 1.00 | [facility] [...] 8 (L)Comment: GFR <60: | >60 | [facility] [...] [address] | | | | | | [facility], | | | | | | [place] [address] | | | | + + + + + + + + | Specimen | + + | Blood | + + + + + + + | Performing | Address | City/State/Zipcode | Phone Number | | Organization | | | | + + + + + | [facility] | [address] | [place] [address] | [phone] | + + + + + XR Chest 2 Vws (04/18/2019 2:03 PM PST) + + | Specimen | + + | | + + + + + | Impressions | Performed At | + + + | Increased, now large right pleural effusion with associated | [facility] | | atelectasis.. Signed by: Eliza Galvan, Florian Olivares | | | Date/Time: 04/18/2019 3:29 PM | | + + + + + + | Narrative | Performed At | + + + | CHEST TWO VIEWS CLINICAL INFORMATION: Chest pain | [facility] | | COMPARISON: XR CHEST AP PORTABLE (01/24/2019); XR CHEST 2 VIEWS | | | (01/23/2019); XR CHEST PA AND LATERAL (01/09/2019); FINDINGS: | | | Increase in now large right pleural effusion with associated right | | | lung atelectasis. No left-sided effusion. No pneumothorax. | | | Cardiomediastinal silhouette is normal. | | + + + + + | Procedure Note | + + | Cedric, Rad Results In - 04/18/2019 3:33 PM PST | | CHEST TWO VIEWS | | | | CLINICAL INFORMATION: | | Chest pain | | | | COMPARISON: | | XR CHEST AP PORTABLE (01/24/2019); XR CHEST 2 VIEWS (01/23/2019); XR | | CHEST PA AND LATERAL (01/09/2019); | | | | FINDINGS: | | Increase in now large right pleural effusion with associated right lung | | atelectasis. No left-sided effusion. No pneumothorax. | | Cardiomediastinal silhouette is normal. | | | | IMPRESSION: | | Increased, now large right pleural effusion with associated | | atelectasis.. | | | | | | | | Signed by: Eliza Galvan David | | Sign Date/Time: 04/18/2019 3:29 PM | + + + +---------+ + + | Performing | Address | City/State/Zipcode | Phone Number | | Organization | | | | + +---------+ + + | [facility] | | | | + +---------+ + + Hepatitis B Surface Ag (04/18/2019 1:32 PM PST) + + + + + + | Component | Value | Ref Range | Performed | Pathologist | | | | | At | Signature | + + + + + + | Hepatitis B | NON REACTIVEComment: | NR | [facility] | | | Surface Ag | Testing performed at | | LABORATORY | | | | [facility], [address] | | | | | | [place] | | | | | | [address] | | | | + + + + + + + + | Specimen | + + | Blood | + + + + + + + | Performing | Address | City/State/Zipcode | Phone Number | | Organization | | | | + + + + + | [facility] | [address] | [place] [address] | [phone] | + + + + + Hepatitis B Surface Ab, Quant (04/18/2019 1:32 PM PST) + + + + + + | Component | Value | Ref Range | Performed | Pathologist | | | | | At | Signature | + + + + + + | HEP B | 2.04 (H)Comment: <1.00 | <1.00 IV | [facility] | | | SURFACE | Non | | LABORATORY | | | ANTIBODY | Immune1.00 OR [...] | | | Samples with an IV | | | | | | of1.00 or greater are | | | | | | considered reactive | | | | | | (protected) in | | | | | | accordance with | | | | | | CDCGuidelines.Testing | | | | | | performed at [facility], [address] | | | | | | [facility], | | | | | | [place] [address] | | | | + + + + + + + + | Specimen | + + | Blood | + + + + + + + | Performing | Address | City/State/Zipcode | Phone Number | | Organization | | | | + + + + + | [facility] | [address] | [place] [address] | [phone] | + + + + + Hepatitis B Core Ab, Total (04/18/2019 1:32 PM PST) + + + + + + | Component | Value | Ref Range | Performed | Pathologist | | | | | At | Signature | + + + + + + | Hepatitis B | NON REACTIVEComment: | NR | [facility] | | | Core Ab | Testing performed at | | LABORATORY | | | Total | [facility], [address] | | | | | | [place] | | | | | | [address] | | | | + + + + + + + + | Specimen | + + | Blood | + + + + + + + | Performing | Address | City/State/Zipcode | Phone Number | | Organization | | | | + + + + + | [facility] | [address] | [place] [address] | [phone] | + + + + + Phosphorus (04/18/2019 1:32 PM PST) + + + + + + | Component | Value | Ref Range | Performed | Pathologist | | | | | At | Signature | + + + + + + | Phosphorus | 8.4 (H)Comment: Testing | 2.3 - 4.8 mg/dL | [facility] | | | | performed at [facility];[address] | | LABORATORY | | | | [address];[place], [place] | | | | | | [address] | | | | + + + + + + + + | Specimen | + + | Blood | + + + + + + + | Performing | Address | City/State/Zipcode | Phone Number | | Organization | | | | + + + + + | [facility] | [email or web address] | [place] [address] | [phone] | + + + + + D-Dimer (04/18/2019 1:32 PM PST) + + + + + + | Component | Value | Ref Range | Performed | Pathologist | | | | | At | Signature | + + + + + + | D-DIMER | 1.37 (H)Comment: D Dimer | 0.19 - 0.50 | [facility] | | | | results less than 0.50 | mg/L FEU | LABORATORY | | | | mg/L FEU may rule out | | | | | | DVT and PE. However, | | | | | | alllaboratory results | | | | | | should be interpreted in | | | | | | the context of all | | | | | | availableclinical, | | | | | | radiologic and | | | | | | laboratory | | | | | | information.Testing | | | | | | performed at [facility];[address] | | | | | | [facility];[place], [place] | | | | | | [address] | | | | + + + + + + + + | Specimen | + + | Blood | + + + + + + + | Performing | Address | City/State/Zipcode | Phone Number | | Organization | | | | + + + + + | [facility] | [address] | [place] [address] | [phone] | + + + + + Ventura ROJAS (04/18/2019 1:32 PM PST) + + + + + + | Component | Value | Ref Range | Performed | Pathologist | | | | | At | Signature | + + + + + + | INR | 1.2Comment: REFERENCE | | [facility] | | | | RANGE:0.9 - 1.2 [...] | | | | | performed at [facility] | | | | | | [address];[place], [place] | | | | | | [address] | | | | + + + + + + + + | Specimen | + + | Blood | + + + + + + + | Performing | Address | City/State/Zipcode | Phone Number | | Organization | | | | + + + + + | [facility] | [address] | [place] [address] | [phone] | + + + + + Comprehensive Metabolic Panel (04/18/2019 1:32 PM PST) + + + + + + | Component | Value | Ref Range | Performed | Pathologist | | | | | At | Signature | + + + + + + | Na | 142 | 135 - 145 | [facility] | [...] + + + + | BUN | 62 (H) | 8 - 25 mg/dL | [facility] | | | | | | LABORATORY | | + + + + + + | Creatinine | 8.83 (H) | 0.50 - 1.00 | [facility] | | | | | mg/dL | LABORATORY | | + + + + + + | BUN/Creatin | 7 | | [facility] | | | ine Ratio | | | LABORATORY | | + + + + + + | Calcium | 10.0 | 8.5 - 10.5 | [facility] | [...] + + + + | Globulin | 2.3 | 1.3 - 4.9 g/dL | [facility] | | | | | | LABORATORY | | + + + + + + | A/G Ratio | 1.9 | 1.0 - 2.4 | [facility] | | | | | | LABORATORY | | + + + + + + | BILIRUBIN, | 0.6 | 0.1 - 1.5 mg/dL | [facility] | | | TOTAL | | | LABORATORY | | + + + + + + | ALK PHOS | 142 (H) | 35 - 115 U/L | [facility] | | | | | | LABORATORY | | + + + + + + | AST | 36 | 10 - 45 U/L | [facility] | | | | | | LABORATORY | | + + + + + + | ALT | 36 | 10 - 65 U/L | [facility] | | | | | | LABORATORY | | + + + + + + | Estimated | 6 (L)Comment: GFR <60: | >60 | [facility] [...] | | | | | performed at [facility];[address] | | | | | | [address] [facility];[place], [place] | | | | | | [address] | | | | + + + + + + + + | Specimen | + + | Blood | + + + + + + + | Performing | Address | City/State/Zipcode | Phone Number | | Organization | | | | + + + + + | [facility] | [address] | [place] [address] | [phone] | + + + + + CBC with Differential (04/18/2019 1:32 PM PST) + + + + + + | Component | Value | Ref Range | Performed | Pathologist | | | | | At | Signature | + + + + + + | WBC | 6.48 | 3.80 - 11.00 | [facility] | | | | | K/uL | LABORATORY | | + + + + + + | Red Blood | 3.29 (L) | 3.70 - 5.10 | [facility] | | | Cells | | M/uL | LABORATORY | | + + + + + + | Hemoglobin | 11.6 | 11.3 - 15.5 | [facility] | | | | | g/dL | LABORATORY | | + + + + + + | Hematocrit | 36.6 | 34.0 - 46.0 % | [facility] | | | | | | LABORATORY | | + + + + + + | MCV | 111.2 (H) | 80.0 - 100.0 fl | [facility] | | | | | | LABORATORY | | + + + + + + | MCH | 35.3 (H) | 27.0 - 34.0 pg | [facility] | | | | | | LABORATORY | | + + + + + + | MCHC | 31.7 (L) | 32.0 - 35.5 | [facility] | | | | | g/dL | LABORATORY | | + + + + + + | RDW-SD | 60.3 (H) | 37 - 53 fl | [facility] | | | | | | LABORATORY | | + + + + + + | Platelet | 185 | 150 - 400 K/uL | [facility] | | | Count | | | LABORATORY | | + + + + + + | MPV | 11.3Comment: NO NORMAL | fl | [facility] | [...] + + + + | % | 68.80 | % | [facility] | | | Neutrophils | | | LABORATORY | | + + + + + + | IMMATURE | 0.30 | % | [facility] | | | GRANULOCYTE | | | LABORATORY | | + + + + + + | % | 11.10 | % | [facility] | | | Lymphocytes | | | LABORATORY | | + + + + + + | Monocyte % | 5.20 | % | [facility] | | | | | | LABORATORY | | + + + + + + | Eosinophils | 13.70 | % | [facility] | | | % | | | LABORATORY | | + + + + + + | Basophils % | 0.90 | % | [facility] | | | | | | LABORATORY | | + + + + + + | Neutrophils | 4.45 | 1.90 - 7.40 | [facility] | | | , Absolute | | K/uL | LABORATORY | | + + + + + + | IMMATURE | 0.02Comment: NOTE NEW | 0.00 - 0.07 | [facility] | | | GRANS AB | REFERENCE RANGE | K/uL | LABORATORY | | + + + + + + | Absolute | 0.72 (L) | 1.00 - 3.90 | [facility] | | | Lymphocytes | | K/uL | LABORATORY | | + + + + + + | Absolute | 0.34 | 0.00 - 0.80 | [facility] | | | Monocytes | | K/uL | LABORATORY | | + + + + + + | Eosinophils | 0.89 (H) | 0.00 - 0.50 | [facility] | | | , Absolute | | K/uL | LABORATORY | | + + + + + + | Basophils, | 0.06Comment: Testing | 0.00 - 0.10 | [facility] | | | Absolute | performed at [facility];[address] | [address] | LABORATORY | | | | [address];[place] | | | | | | [address] | | | | + + + + + + + + | Specimen | + + | Blood | + + + + + + + | Performing | Address | City/State/Zipcode | Phone Number | | Organization | | | | + + + + + | [facility] | [address] | [place] [address] | [phone] | + + + + + ECG 12 lead (04/18/2019 11:43 AM PST) + + + + + + | Component | Value | Ref Range | Performed | Pathologist | | | | | At | Signature | + + + + + + | VENTRICULAR | 113 | BPM | [facility] | | | RATE EKG | | | | | + + + + + + | ATRIAL RATE | 113 | BPM | [facility] | | + + + + + + | P-R | 172 | ms | [facility] | | | INTERVAL | | | | | + + + + + + | QRS | 82 | ms | [facility] | | | DURATION | | | | | + + + + + + | Q-T | 324 | ms | [facility] | | | INTERVAL | | | | | + + + + + + | Q-T | 444 | ms | [facility] | | | INTERVAL | | | | | | (CORRECTED) | | | | | + + + + + + | P WAVE AXIS | 37 | degrees | [facility] | | + + + + + + | QRS AXIS | -47 | degrees | [facility] | | + + + + + + | T AXIS | 65 | degrees | [facility] | | + + + + + + | INTERPRETAT | Sinus tachycardiaLeft | | [facility] | | | ION TEXT | axis | | | | | | deviationNonspecific T | | | | | | wave abnormalityAbnormal | | | | | | ECGWhen compared with | | | | | | ECG of 23-JAN-2019 | | | | | | 22:58,No significant | | | | | | change was foundThis ECG | | | | | | [...] -COMPUTER ([id number]), | | | | | | website/blog editor Parvez Calderón | | | | | | Danilo ([id number]) on 04/19/2019 | | | | | | 4:12:27 AM | | | | + + [...] | Diagnosis | + + | Chronic 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) - Primary Chronic | | combined systolic and diastolic heart failure | + + | ESRD needing dialysis (HCC) End stage renal disease | + + | Hypervolemia, unspecified hypervolemia type | + + | Noncompliance with renal dialysis (HCC) Noncompliance with renal dialysis | + + | Costochondritis Tietze's disease | + + | Recurrent right pleural effusion Unspecified pleural effusion | + + | Acute on chronic combined systolic and diastolic CHF (congestive heart failure) (HCC) | + + | At high risk for electrolyte imbalance | + + | ESRD on hemodialysis (HCC) End stage renal disease | + + | Hyperkalemia Hyperpotassemia | + + | Anemia in ESRD (end-stage renal disease) (HCC) Anemia in chronic kidney disease | + + | Hyperphosphatemia Disorders of phosphorus metabolism | + + | Hypertension, unspecified type | + + | Noncompliance Personal history of noncompliance with medical treatment, presenting | | hazards to health | + + | Acute respiratory distress Other pulmonary insufficiency, not elsewhere classified | + + | History of Henoch-Schonlein purpura Personal history of diseases of skin and | | subcutaneous tissue | + + | Secondary hyperparathyroidism (HCC) Secondary hyperparathyroidism (of renal origin) | + + | Dilated cardiomyopathy (HCC) Other primary cardiomyopathies | + + | Moderate to severe pulmonary hypertension (HCC) Other chronic pulmonary heart | | diseases | + + | Pleural effusion, not elsewhere classified | + + | Pulmonary edema with congestive heart failure with reduced left ventricular function | | (HCC) Congestive heart failure, unspecified | + + documented in this encounter Administered Medications + +--------+ +--------+------+------+ | Medication Order | MAR | Action | Dose | Rate | Site | | | Action | Date | | | | + +--------+ +--------+------+------+ | acetaminophen (TYLENOL) tablet | Given | 04/18/19 | 650 mg | | | | 650 mg 650 mg, Oral, EVERY 4 | | 20 8:52 | | | | | HOURS PRN, Pain, or fever >= 38.6 | | PM PST | | | | | C (101.5 F), Starting Little | | | | | | | 04/18/19 at 1717 | | | | | | + +--------+ +--------+------+------+ + +---+ | | | + +---+ | albumin 25% IVPB 12.5 g 12.5 | | | g, Intravenous, Administer over 5 | | | Minutes, DIALYSIS - PRN, | | | Hypotension, Starting Little 04/18/19 | | | at 1725, For 3 doses, For BP | | | less than 90 mm Hg. DIALYSIS USE | | | ONLY - DISCONTINUE AFTER | | | DIALYSIS THERAPY IS COMPLETE, | | | Treatment date(s): 04/18/2019, | | | Dialysis | | + +---+ | | | + +---+ + +-------+ +-------+---+---+ | albuterol 5 mg/mL concentrated | Given | 04/18/19 | 10 mg | | | | nebulizer solution 10 mg 10 mg, | | 20 2:35 | | | | | Nebulization, RT Once, Little | | PM PST | | | | | 04/18/19 at 1420, For 1 dose, RT | | | | | | | will administer., | | | | | | + +-------+ +-------+---+---+ +---+---+ | | | +---+---+ + +-------+ +-----+---+---+ | calcium gluconate injection 1 g | Given | 04/18/19 | 1 g | | | | 1 g, Intravenous, ONCE, Little | | 20 3:06 | | | | | 04/18/19 at 1420, For 1 dose | | PM PST | | | | + +-------+ +-----+---+---+ +---+---+ | | | +---+---+ + +-------+ +---------+---+---+ | carvedilol (COREG) tablet 12.5 | Given | 04/23/19 | 12.5 mg | | | | mg 12.5 mg, Oral, 2 TIMES DAILY, | | 20 8:45 | | | | | First dose on Little 04/18/19 at | | AM PST | | | | | 2100 | | | | | | + +-------+ +---------+---+---+ +-------+ +---------+---+---+ | Given | 04/22/19 | 12.5 mg | | | | | 20 8:45 | | | | | | PM PST | | | | +-------+ +---------+---+---+ | Given | 04/22/19 | 12.5 mg | | | | | 20 8:18 | | | | | | AM PST | | | | +-------+ +---------+---+---+ +---+---+ | | | +---+---+ + +-------+ +-------+---+---+ | citalopram (celeXA) tablet 20 | Given | 04/23/19 | 20 mg | | | | mg 20 mg, Oral, DAILY, First | | 20 8:44 | | | | | dose on [facility] 04/18/19 at 1800 | | AM PST | | | | + +-------+ +-------+---+---+ +-------+ +-------+---+---+ | Given | 04/22/19 | 20 mg | | | | | 20 8:18 | | | | | | AM PST | | | | +-------+ +-------+---+---+ | Given | 04/21/19 | 20 mg | | | | | 20 9:30 | | | | | | AM PST | | | | +-------+ +-------+---+---+ +---+---+ | | | +---+---+ + +-------+ +---------+---+---+ | clonazePAM (klonoPIN) tablet | Given | 04/18/19 | 0.25 mg | | | | 0.25 mg 0.25 mg, Oral, DAILY | | 20 8:56 | | | | | PRN, Anxiety, on hemodialysis | | PM PST | | | | | days, Starting Little 04/18/19 at | | | | | | | 1717, Reproductive Risk: Use | | | | | | | appropriate handling | | | | | | | precautions., | | | | | | + +-------+ +---------+---+---+ +---+---+ | | | +---+---+ + +-------+ +--------+---+---+ | cloNIDine (CATAPRES) tablet 0.1 | Given | 04/18/19 | 0.1 mg | | | | mg 0.1 mg, Oral, ONCE, Little | | 20 5:48 | | | | | 04/18/19 at 1800, For 1 dose | | PM PST | | | | + +-------+ +--------+---+---+ +---+---+ | | | +---+---+ + +-------+ +------+---+---+ | dextrose 50% injection 25 g 25 | Given | 04/18/19 | 25 g | | | | g, Intravenous, ONCE, Little | | 20 3:05 | | | | | 04/18/19 at 1420, For 1 dose | | PM PST | | | | + +-------+ +------+---+---+ +---+---+ | | | +---+---+ + +-------+ +--------+---+---+ | epoetin jenna-epbx (RETACRIT) | Given | 04/19/19 | 4,000 | | | | 10,000 units/mL injection 4,000 | | 20 2:58 | Units | | | | Units 4,000 Units, Intravenous, | | PM PST | | | | | WITH EACH DIALYSIS, Starting Fri | | | | | | | 04/19/19 at 1242, Keep in | | | | | | | refrigerator. Do not shake., | | | | | | | ESRD-related (i.e. dialysis) | | | | | | | indication? Yes, Dialysis | | | | | | + +-------+ +--------+---+---+ +---+---+ | | | +---+---+ + +---------+ + +-------+---+ | heparin (dialysis) 1,000 | New Bag | 04/18/19 | 500 | 0.5 | | | units/mL infusion 500 Units/hr | | 20 6:45 | Units/hr | mL/hr | | | (0.5 mL/hr), at 0.5 mL/hr, | | PM PST | | | | | Intravenous, DIALYSIS - | | | | | | | CONTINUOUS, Starting Little 04/18/19 | | | | | | | at 1745, For 2 hours, DIALYSIS | | | | | | | USE ONLY - DISCONTINUE AFTER | | | | | | | DIALYSIS IS COMPLETE, Treatment | | | | | | | date(s): 04/18/2019, Dialysis | | | | | | + +---------+ + +-------+---+ +---+---+ | | | +---+---+ + +---------+ + +-------+---+ | heparin (dialysis) 1,000 | New Bag | 04/19/19 | 500 | 0.5 | | | units/mL infusion 500 Units/hr | | 20 1:52 | Units/hr | mL/hr | | | (0.5 mL/hr), at 0.5 mL/hr, | | PM PST | | | | | Intravenous, DIALYSIS - | | | | | | | CONTINUOUS, Starting 04/19/19 | | | | | | | at 1300, DIALYSIS USE ONLY - | | | | | | | DISCONTINUE AFTER DIALYSIS IS | | | | | | | COMPLETE, Treatment date(s): | | | | | | | 04/19/2019, Dialysis | | | | | | + +---------+ + +-------+---+ +---+---+ | | | +---+---+ + +---------+ + +-------+---+ | heparin (dialysis) 1,000 | New Bag | 04/20/19 | 500 | 0.5 | | | units/mL infusion 500 Units/hr | | 20 9:20 | Units/hr | mL/hr | | | (0.5 mL/hr), at 0.5 mL/hr, | | AM PST | | | | | Intravenous, DIALYSIS - | | | | | | | CONTINUOUS, Starting 04/20/19 | | | | | | | at 0915, For 2 hours, DIALYSIS | | | | | | | USE ONLY - DISCONTINUE AFTER | | | | | | | DIALYSIS IS COMPLETE, Treatment | | | | | | | date(s): 04/20/2019, Dialysis | | | | | | + +---------+ + +-------+---+ +---+---+ | | | +---+---+ + +---------+ + +-------+---+ | heparin (dialysis) 1,000 | New Bag | 04/22/19 | 500 | 0.5 | | | units/mL infusion 500 Units/hr | | 20 10:45 | Units/hr | mL/hr | | | (0.5 mL/hr), at 0.5 mL/hr, | | AM PST | | | | | Intravenous, DIALYSIS - | | | | | | | CONTINUOUS, Starting 04/22/19 | | | | | | | at 0930, DIALYSIS USE ONLY - | | | | | | | DISCONTINUE AFTER DIALYSIS IS | | | | | | | COMPLETE, Treatment date(s): | | | | | | | 04/22/2019, Dialysis | | | | | | + +---------+ + +-------+---+ +---+---+ | | | +---+---+ + +-------+ +--------+---+---+ | heparin (dialysis) 1,000 | Given | 04/18/19 | 2,000 | | | | units/mL injection 2,000 Units | | 20 6:40 | Units | | | | 2,000 Units, Intravenous, | | PM PST | | | | | DIALYSIS - ONCE, [facility] 04/18/19 at | | | | | | | 1745, For 1 dose, DIALYSIS USE | | | | | | | ONLY - DISCONTINUE AFTER DIALYSIS | | | | | | | IS COMPLETE, Treatment date(s): | | | | | | | 04/18/2019, Dialysis | | | | | | + +-------+ +--------+---+---+ +---+---+ | | | +---+---+ + +-------+ +--------+---+---+ | heparin (dialysis) 1,000 | Given | 04/19/19 | 2,000 | | | | units/mL injection 2,000 Units | | 20 1:51 | Units | | | | 2,000 Units, Intravenous, WITH | | PM PST | | | | | EACH DIALYSIS, Starting Fri | | | | | | | 04/19/19 at 1241, DIALYSIS USE | | | | | | | ONLY - DISCONTINUE AFTER DIALYSIS | | | | | | | IS COMPLETE, Treatment date(s): | | | | | | | 04/19/2019, Dialysis | | | | | | + +-------+ +--------+---+---+ +---+---+ | | | +---+---+ + +-------+ +--------+---+---+ | heparin (dialysis) 1,000 | Given | 04/20/19 | 2,000 | | | | units/mL injection 2,000 Units | | 20 9:14 | Units | | | | 2,000 Units, Intravenous, | | AM PST | | | | | DIALYSIS - ONCE, 04/20/19 at | | | | | | | 0915, For 1 dose, DIALYSIS USE | | | | | | | ONLY - DISCONTINUE AFTER DIALYSIS | | | | | | | IS COMPLETE, Treatment date(s): | | | | | | | 04/20/2019, Dialysis | | | | | | + +-------+ +--------+---+---+ +---+---+ | | | +---+---+ + +-------+ +--------+---+---+ | heparin (dialysis) 1,000 | Given | 04/22/19 | 2,000 | | | | units/mL injection 2,000 Units | | 20 10:45 | Units | | | | 2,000 Units, Intravenous, WITH | | AM PST | | | | | EACH DIALYSIS, Starting Mon | | | | | | | 04/22/19 at 0859, DIALYSIS USE | | | | | | | ONLY - DISCONTINUE AFTER DIALYSIS | | | | | | | IS COMPLETE, Treatment date(s): | | | | | | | 04/22/2019, Dialysis | | | | | | + +-------+ +--------+---+---+ +---+---+ | | | +---+---+ + +-------+ + +---+---+ | HYDROcodone-acetaminophen | Given | 04/23/19 | 1 tablet | | | | (NORCO) 5-325 mg per tablet 1 | | 20 9:18 | | | | | tablet 1 tablet, Oral, EVERY 6 | | AM PST | | | | | HOURS PRN, Moderate Pain, | | | | | | | Starting 04/21/19 at 0800 | | | | | | + +-------+ + +---+---+ +-------+ + +---+---+ | Given | 04/23/19 | 1 tablet | | | | | 20 3:08 | | | | | | AM PST | | | | +-------+ + +---+---+ | Given | 04/22/19 | 1 tablet | | | | | 20 8:20 | | | | | | PM PST | | | | +-------+ + +---+---+ +---+---+ | | | +---+---+ + +-------+ +--------+---+---+ | HYDROmorphone (DILAUDID) | Given | 04/19/19 | 0.5 mg | | | | injection 0.5 mg 0.5 mg, | | 20 1:41 | | | | | Intravenous, ONCE, 04/19/19 at | | AM PST | | | | | 0130, For 1 dose | | | | | | + +-------+ +--------+---+---+ +---+---+ | | | +---+---+ + +-------+ +--------+---+---+ | HYDROmorphone (DILAUDID) | Given | 04/21/19 | 0.5 mg | | | | injection 0.5 mg 0.5 mg, | | 20 6:21 | | | | | Intravenous, EVERY 3 HOURS PRN, | | AM PST | | | | | Moderate Pain, Severe Pain, | | | | | | | Starting 04/19/19 at 0922 | | | | | | + +-------+ +--------+---+---+ +-------+ +--------+---+---+ | Given | 04/21/19 | 0.5 mg | | | | | 20 3:07 | | | | | | AM PST | | | | +-------+ +--------+---+---+ | Given | 04/21/19 | 0.5 mg | | | | | 20 12:16 | | | | | | AM PST | | | | +-------+ +--------+---+---+ +---+---+ | | | +---+---+ + +-------+ +--------+---+---+ | HYDROmorphone (DILAUDID) | Given | 04/23/19 | 0.5 mg | | | | injection 0.5 mg 0.5 mg, | | 20 10:54 | | | | | Intravenous, EVERY 6 HOURS PRN, | | AM PST | | | | | for breakthrough pain, if norco | | | | | | | ineffective, Starting 04/21/19 | | | | | | | at 1706 | | | | | | + +-------+ +--------+---+---+ +-------+ +--------+---+---+ | Given | 04/23/19 | 0.5 mg | | | | | 20 4:45 | | | | | | AM PST | | | | +-------+ +--------+---+---+ | Given | 04/22/19 | 0.5 mg | | | | | 20 9:59 | | | | | | PM PST | | | | +-------+ +--------+---+---+ +---+---+ | | | +---+---+ + +-------+ +---------+---+---+ | insulin regular (humuLIN R, | Given | 04/18/19 | 5 Units | | | | novoLIN R) injection (vial) | | 20 3:08 | | | | | Units 5 Units, Intravenous, | | PM PST | | | | | ONCE, [facility] 04/18/19 at 1420, For 1 | | | | | | | dose, Only for use with U-100 | | | | | | | insulin syringe., | | | | | | + +-------+ +---------+---+---+ +---+---+ | | | +---+---+ + +-------+ +------+---+---+ | morphine injection 4 mg 4 mg, | Given | 04/18/19 | 4 mg | | | | Intravenous, ONCE, [facility] 04/18/19 at | | 20 3:06 | | | | | 1420, For 1 dose | | PM PST | | | | + +-------+ +------+---+---+ +---+---+ | | | +---+---+ + +-------+ +------+---+---+ | ondansetron (ZOFRAN ODT) | Given | 04/21/19 | 4 mg | | | | disintegrating tablet 4 mg 4 mg, | | 20 4:39 | | | | | Oral, EVERY 6 HOURS PRN, Nausea, | | PM PST | | | | | Vomiting, Starting [facility] 04/18/19 | | | | | | | at 1717, First line agent, | | | | | | + +-------+ +------+---+---+ +-------+ +------+---+---+ | Given | 04/20/19 | 4 mg | | | | | 20 10:22 | | | | | | AM PST | | | | +-------+ +------+---+---+ +---+---+ | | | +---+---+ + +-------+ +------+---+---+ | ondansetron (ZOFRAN) injection | Given | 04/18/19 | 4 mg | | | | 4 mg 4 mg, Intravenous, ONCE, | | 20 1:55 | | | | | [facility] 04/18/19 at 1355, For 1 dose | | PM PST | | | | + +-------+ +------+---+---+ +---+---+ | | | +---+---+ + +-------+ +------+---+---+ | ondansetron (ZOFRAN) injection | Given | 02/18/20 | 4 mg | | | | 4 mg 4 mg, Intravenous, EVERY 6 | | 20 10:55 | | | | | HOURS PRN, Nausea, Vomiting, | | AM PST | | | | | Starting [facility] 04/18/19 at 1717, | | | | | | | First line agent, | | | | | | + +-------+ +------+---+---+ +-------+ +------+---+---+ | Given | 04/23/19 | 4 mg | | | | | 20 4:51 | | | | | | AM PST | | | | +-------+ +------+---+---+ | Given | 04/22/19 | 4 mg | | | | | 20 10:59 | | | | | | PM PST | | | | +-------+ +------+---+---+ +---+---+ | | | +---+---+ + +-------+ +-------+---+---+ | pantoprazole (PROTONIX) DR | Given | 04/23/19 | 40 mg | | | | tablet 40 mg 40 mg, Oral, DAILY | | 20 8:44 | | | | | BEFORE BREAKFAST, First dose on | | AM PST | | | | | [facility] 04/18/19 at 1800, Do not cut | | | | | | | or crush., Indication: GERD | | | | | | + +-------+ +-------+---+---+ +-------+ +-------+---+---+ | Given | 04/22/19 | 40 mg | | | | | 20 5:53 | | | | | | AM PST | | | | +-------+ +-------+---+---+ | Given | 04/21/19 | 40 mg | | | | | 20 6:21 | | | | | | AM PST | | | | +-------+ +-------+---+---+ +---+---+ | | | +---+---+ + +-------+ +---------+---+---+ | promethazine (PHENERGAN) (IV | Given | 04/21/19 | 6.25 mg | | | | ONLY) injection 6.25 mg 6.25 mg, | | 20 12:17 | | | | | Intravenous, EVERY 6 HOURS PRN, | | AM PST | | | | | Nausea, Vomiting, Starting Fri | | | | | | | 04/19/19 at 1145, Vesicant. When | | | | | [...] +-------+ +---------+---+---+ +-------+ +---------+---+---+ | Given | 04/20/19 | 6.25 mg | | | | | 20 2:50 | | | | | | PM PST | | | | +-------+ +---------+---+---+ | Given | 04/20/19 | 6.25 mg | | | | | 20 6:12 | | | | | | AM PST | | | | +-------+ +---------+---+---+ +---+---+ | | | +---+---+ + +-------+ +-------+---+---+ | promethazine (PHENERGAN) tablet | Given | 04/21/19 | 25 mg | | | | 12.5-25 mg 12.5-25 mg, Oral, | | 20 9:11 | | | | | EVERY 6 HOURS PRN, Nausea, | | PM PST | | | | | Vomiting, Starting 04/21/19 at | | | | | | | 0802 | | | | | | + +-------+ +-------+---+---+ +-------+ +-------+---+---+ | Given | 04/21/19 | 25 mg | | | | | 20 9:30 | | | | | | AM PST | | | | +-------+ +-------+---+---+ +---+---+ | | | +---+---+ + +-------+ +--------+---+---+ | senna (SENOKOT) tablet 8.6 mg | Given | 04/22/19 | 8.6 mg | | | | 8.6 mg, Oral, 2 TIMES DAILY PRN, | | 20 1:13 | | | | | Constipation, Starting [facility] | | AM PST | | | | | 04/18/19 at 1717, If docusate | | | | | | | ineffective or not ordered., | | | | | | + +-------+ +--------+---+---+ +-------+ +--------+---+---+ | Given | 04/21/19 | 8.6 mg | | | | | 20 6:21 | | | | | | AM PST | | | | +-------+ +--------+---+---+ +---+---+ | | | +---+---+ + +-------+ + +---+---+ | sevelamer carbonate (RENVELA) | Given | 04/23/19 | 1,600 mg | | | | tablet 1,600 mg 1,600 mg, Oral, | | 20 8:48 | | | | | SEE ADMIN INSTRUCTIONS, Starting | | AM PST | | | | | [facility] 04/18/19 at 1724, Do not cut | | | | | | | or crush tablets. Administer with | | | | | | | meals per patient request., | | | | | | + +-------+ + +---+---+ +-------+ + +---+---+ | Given | 04/22/19 | 1,600 mg | | | | | 20 8:45 | | | | | | PM PST | | | | +-------+ + +---+---+ | Given | 04/22/19 | 1,600 mg | | | | | 20 1:56 | | | | | | PM PST | | | | +-------+ + +---+---+ + +---+ | | | + +---+ | sodium chloride 0.9% (NS) bolus | | | 100 mL 100 mL, Intravenous, | | | Administer over 15 Minutes, | | | DIALYSIS - PRN, Hypotension, | | | Starting [facility] 04/18/19 at 1720, | | | Treatment date(s): 04/18/2019, For | | | BP less than [...] - PRN, Hypotension, | | | Starting [facility] 04/22/19 at 0858, | | | Treatment date(s): 04/22/2019, For | | | BP less than 100 mm Hg. Give | | | 100 mL bolus up to 1000 mL. | | | DIALYSIS USE ONLY - DISCONTINUE | | | AFTER DIALYSIS THERAPY IS | | | COMPLETE, Dialysis | | + +---+ | | | + +---+ + +-------+ +-------+---+---+ | valsartan (DIOVAN) tablet 40 mg | Given | 04/23/19 | 40 mg | | | | 40 mg, Oral, DAILY, First dose | | 20 8:45 | | | | | on [facility] 04/18/19 at 1800 | | AM PST | | | | + +-------+ +-------+---+---+ +-------+ +-------+---+---+ | Given | 04/22/19 | 40 mg | | | | | 20 8:18 | | | | | | AM PST | | | | +-------+ +-------+---+---+ | Given | 04/21/19 | 40 mg | | | | | 20 9:30 | | | | | | AM PST | | | | +-------+ +-------+---+---+ +---+---+ | | | +---+---+ documented in this encounter
--- OUTSIDE RECORDS SUMMARY | ~2019-12-25 | XMS | Encounter Summary ---
Demographics + + + | Address | [address] | | | [place] [address] | + + + | Home Phone [...] | Author | [facility] | | | and [place] | + + + | Organization | [facility] | | [...] Team Providers + +------+ + | Care Fiber Optic Central Office Installer Name | Role | Phone | + +------+ + PCP | Unavailable | + +------+ + Reason for Visit + +--------+ + | Reason | Onset | Comments | | | Date | | + +--------+ + | Medication Refill | 10/10/ | | | | 2018 | | + +--------+ + Encounter Details +--------+--------+ + + + | Date | Type | Department | Care Team | Description | +--------+--------+ + + + | 10/10/ | Refill | [facility] | Jorje Camp | Medication Refill | | 2018 | | NEPHROLOGY [address] | M, DO [address] | | | | | [address] | [address] [place] | | | | | [place], [place] | [facility] [address] | | | | | [address] | [phone] | | | | | [phone] | | | +--------+--------+ + + + [...]
--- OUTSIDE RECORDS SUMMARY | ~2019-12-25 | XMS | Encounter Summary ---
Demographics + + + | Address | [address] | | | [place] [address] | + + + | Home Phone [...] + + + | Author | [facility] | | | and [place] | + + + | Organization | [facility] | | | [...] Team Providers + +------+ + | Care Zipper Trimmer Name | Role | Phone | + +------+ + | Jonathan Alonso MD | PCP | | + +------+ + Encounter Details +--------+ + + + + | Date | Type | Department | Care Team | Description | +--------+ + + + + | 08/13/ | Emergency | [facility] | | | | 2018 | | [facility] | | | | | | [facility] | | | | | | [address] | | | | | | [place], [place] | | | | | | [address] | | | | | | [phone] | | | +--------+ + + + [...]
--- OUTSIDE RECORDS SUMMARY | ~2019-12-25 | XMS | Encounter Summary ---
Demographics + + + | Address | [address] | | | [place] [address] | + + + | Home Phone [...] Team Providers + +------+ + | Care Housekeeping Laundry Worker Name | Role | Phone | + +------+ + PCP | Unavailable | + +------+ + Encounter Details +--------+ + + + + | Date | Type | Department | Care Team | Description | +--------+ + + + + | 03/25/ | Documentati | [facility] | Ibarra, Daniela W, | | | 2017 | on | NEPHROLOGY [address] | MD [address] | | | | | [address] | [address] [place] | | | | | [place], [place] | [place] [address] | | | | | [address] | [phone] | | | | | [phone] | | | +--------+ + + + [...]
--- OUTSIDE RECORDS SUMMARY | ~2019-12-25 | XMS | Encounter Summary ---
Demographics + + + | Address | [address] | | | [place] [address] | + + + | Home Phone [...] + + | Author | [facility] | | | and [place] | + + + | Organization | [facility] | | | [...] Providers + +------+ + | Care Drafting Technician Name | Role | Phone | + +------+ + PCP | Unavailable | + +------+ + Encounter Details +--------+ + + + + | Date | Type | Department | Care Team | Description | +--------+ + + + + | 08/21/ | Hospital | [facility] | Conversion | End stage renal | | 2015 | Encounter | [facility] OP | Transaction, | disease (HCC); | | | | [address] | Provider Unknown | Mechanical | | | | [place], [place] | [phone] | complication of | | | | [address] | | other vascular | | | | [phone] | Darryn Whaley, | device, implant, and | | | | | [address] | graft (HCC) | | | | | [address] [place], [place] | | | | | | [address] | | | | | | | [...] + + documented as of this encounter H&P Notes Manny Whaley MD, MD - 08/21/2014 7:43 PM PDTFormatting of this note might be diffe rent from the original. H&P by Darryn Whaley MD at 08/21/141942 Author: Darryn Whaley MD Service: Interventional Radiology Author Type: Physician Filed: 08/21/141951 Date of Service: 08/21/141942 Status: Signed Medical Technologist Blood Bank: Darryn Whaley MD (Physician) [facility] Service: Interventional Radiology Admission History & Physical Date of Admission: 08/21/2014 History Obtained From: patient CHIEF COMPLAINT: Poor flow in the fistula HISTORY OF PRESENT ILLNESS The patient is a 19 y.o. female with significant past medical history of ESRD who presents with Left arm brachiocephalic fistula with low pressures. Needs fistula evaluation. REVIEW OF SYSTEMS Review of Systems - Negative except as noted above. Past Medical History Diagnosis Date HSP (Henoch-Schonlein purpura) nephritis Hypertension Clotted dialysis access (HCC) 2014 Past Surgical History Procedure Laterality Date Av fistula placement Renal biopsy Laparoscopic peritoneal dialysis catheter insertion x2 Abdominal surgery Av fistula repair Left 03/07/2014 Procedure: AV FISTULA - GRAFT REPAIR/REVISION; Surgeon: Rik Simon MD; Location: [facility] OR; Service: Vascular; Laterality: Left; Declot graft Left 03/07/2014 Procedure: GRAFT - DECLOT; Surgeon: Rik Simon MD; Location: [facility] OR; Service: Va scular; Laterality: Left; Av fistula placement Left 04/08/2014 Procedure: AV FISTULA; Surgeon: Rik Simon MD; Location: [facility] OR; Service: Vascul ar; Laterality: Left; cephalic Dialysis fistula creation N/A 04/08/2014 Procedure: DIALYSIS CATHETER - INSERTION; Surgeon: Rik Simon MD; Location: [facility]; Service: Vascular; Laterality: N/A; tunneled catheter Laparoscopic peritoneal dialysis catheter insertion Right 07/2013 current dialysis access MWF dialysis Superficialization of av fistula Left 06/24/2014 Procedure: AV FISTULA - SUPERFICIALIZATION; Surgeon: Rik Simon MD; Location: [facility]; Service: Vascular; Laterality: Left; Allergies Allergen Reactions Morphine Rash Tape [Adhesive Tape] Rash Use silk tape only Prior to Admission medications Medication Sig Start Date End Date Taking? Authorizing Provider cinacalcet (SENSIPAR) 30 MG tablet Take 60 mg by mouth daily. Yes Historical Provider folic acid-vitamin b complex-vitamin r-aroyceue-fcdq (DIALYVITE) 3 MG TABS Take 1 tablet by mouth daily. Yes Historical Provider sevelamer (RENVELA) 800 MG tablet Take 800 mg by mouth 3 (three) times daily with meals. Yes Historical Provider History reviewed. No pertinent family history. History Social History Marital Status: Single Spouse Name: N/A Number of Children: N/A Years of Education: N/A Occupational History Not on file. Social History Main Topics Smoking status: Never Smoker Smokeless tobacco: Not on file Alcohol Use: No Drug Use: No Sexual Activity: Not on file Other Topics Concern Not on file Social History Narrative PHYSICAL EXAM Vital Signs: BP 120/74 | Pulse 80 | Temp(Src) 97.9 F (36.6 C) (Skin) | Resp 18 | Ht 1.702 m (5' 7.01 ") | Wt 98.884 kg (218 lb) | BMI 34.14 kg/m2 | SpO2 99% General appearance: alert, appears stated age and cooperative Head: Normocephalic, without obvious abnormality, atraumatic Eyes: conjunctivae/corneas clear. PERRL, EOM's intact. Fundi benign. Ears: normal TM's and external ear canals both ears Nose: Nares normal. Septum midline. Mucosa normal. No drainage or sinus tenderness. Throat: lips, mucosa, and tongue normal; teeth and gums normal Neck: no adenopathy, no carotid bruit, no JVD, supple, symmetrical, trachea midline and thy roid not enlarged, symmetric, no tenderness/mass/nodules Lungs: clear to auscultation bilaterally Heart: regular rate and rhythm, S1, S2 normal, no murmur, click, rub or gallop Extremities: extremities normal, atraumatic, no cyanosis or edema and Left BC fistula with poor flow. Neurologic: Grossly normal DATA CBC: No results for input(s): WBC, RBC, HGB, HCT, MCV, MCH, MCHC, RDW, PLT, MPV, DIFFTYPE in the last 168 hours. PT/INR: No results for input(s): PROTIME, INR in the last 168 hours. PTT: No results for input(s): APTT in the last 168 hours. PROBLEM LIST Active Problems: * No active hospital problems. * ASSESSMENT & PLAN 19 Yr old female with ESRD on HD via left BC fistula presents with poor flow. She is a candidate for fistulagram and intervention. We discussed the procedure of fistula gram and intervention, risks ( Bleeding, infection, contrast allergy, injury to the vein nee ding stenting) and other options for managing poor flow in the fistula. She understood the d iscussion and expressed a wish to proceed. Moderate Sedation Presedation Assessment completed. ASA Classification: ASA 3: Patient with a severe systemic disease Mallampati Classification: I: Full visibility of tonsils, uvula and soft palate Disposition: [facility] Code Status: Prior Primary Care Physician: OCTAVIO Whaley MD 08/21/2014 7:43 PM documented i n this encounter Plan of Treatment Not on filedocumented as of this encounter Procedures + +--------+ + + + | Procedure Name | Priori | Date/Time | Associated Diagnosis | Comments | | | ty | | | | + +--------+ + + + | IR INJECTION | Routin | 08/21/2014 | | Results for this | | DIALYSIS CIRCUIT W | e | 6:01 PM | | procedure are in the | | ANGIOPLASTY | | PDT | | results section. | + +--------+ + + + | IR INJECTION | Routin | 08/21/2014 | | Results for this | | DIALYSIS CIRCUIT | e | 6:01 PM | | procedure are in the | | | | PDT | | results section. | + +--------+ + + + documented in this encounter Results IR Inj Dialysis Circuit w Angioplasty (08/21/2014 6:01 PM PDT) + + | Specimen | + + | | + + + + + | Impressions | Performed At | + + + | 1. Successful left brachiocephalic fissure gram and angioplasty | | | the significant tandem stenosis in proximal left cephalic vein | | | adjacent to arterial venous anastomosis without incidence. | | | 70306, 11123, 72673, [address]25 | | + + + + + + | Narrative | Performed At | + + + | [facility] 08/21/2014 6:01 PM | | | HISTORY: 19 years. Female. With chronic kidney disease stage V | | | presents with decreasing KT over V. 585.6, 996.1 EXAMINATION | | | Left brachiocephalic fistulogram and angioplasty of the multiple | | | tandem stenosis in proximal left cephalic vein adjacent to arterial | | | anastomosis using 4 mm x 4 cm and 6 mm x 4 cm balloon catheter. | | | MEDICATIONS: Isovue-200 34 cc, Heparin 5000 units intravenous, | | | Versed 2 mg intravenous, fentanyl 50-mcg intravenous. | | | Intra-procedure sedation time 33 minutes. The radiation dose 23 | | | mGray, Fluoroscopy time 2.6 minutes. Appropriate physiologic | | | monitoring, maintenance of adequate conscious sedation and | | | independent senior care supervision performed throughout the | | | procedure. PROCEDURE: Informed written consent obtained from | | | the patient after explaining the procedure, risks and alternatives. | | | Patient understood the discussion and expressed a wish to proceed. | | | The appropriate side and site was labeled and initialed as an | | | independent process antecedent to the imaging and intervention, as per | | | protocol at this institution. Patient was placed supine on the | | | x-ray table. The left arm prepped in the usual sterile fashion. | | | Left the brachiocephalic fistula was accessed using micropuncture | | | needle and exchanged for 4-Turkmen micropuncture sheath. Initial | | | fistula pressure was obtained and fistulogram obtained from the left | | | cubital fossa to the right atrium. Then, by occluding the outflow | | | reflux evaluation the arterial anastomosis obtained. This revealed | | | significant, tandem stenosis in proximal left cephalic vein adjacent | | | to arterial venous anastomosis. Then,, I decided to perform | | | angioplasty of the venous lesions. A second access obtained into mid | | | forearm directed towards the arterial anastomosis using micropuncture | | | needle and exchanged for 4 Turkmen short sheath over 0.03, angled | | | Glidewire. Subsequently, Glidewire was exchanged for 0.014, mailman | | | wire over 4 Turkmen angled glide catheter. Then, 4 mm x 4 cm balloon | | | catheter placed with wire and angioplasty the arterial venous | | | anastomosis performed. Then, reflux fissure gram revealed | | | significant focal stenosis in proximal cephalic vein. Then, 6 mm x 4 | | | symmetry balloon catheter placed across the stenosis and balloon | | | angioplasty performed. Final fistulogram obtained. Final fistula | | | pressures obtained. Patient tolerated the procedure well. No post | | | complications. All catheters and wires were removed. Hemostasis | | | obtained with manual pressure. FINDINGS 1. Initial fistula | | | pressure 26/17 mm Hg, arterial pressure 143/80 mm Hg, final fistula | | | pressure 21/17 mm Hg. 2. Left brachiocephalic fissure gram revealed | | | significant, tandem stenosis in proximal left cephalic vein adjacent | | | to arterial anastomosis. Rest of the draining veins and central veins | | | widely patent. 3. Successful angioplasty of the proximal cephalic | | | venous stenosis and arteriovenous anastomotic stenosis using 4 mm and | | | 6 limited balloon without incidence. | | + + + + + | Procedure Note | + + | Cedric, Rad Conversion - 10/19/2018 6:38 AM PDT [facility] | | FISTULAGRAM08/21/2014 6:01 PM HISTORY:19 years. Female. With chronic kidney disease | | stage V presents with decreasing KT over V. 585.6, 996.1 EXAMINATION Left | | brachiocephalic fistulogram and angioplasty of the multiple tandem stenosis in proximal | | left cephalic vein adjacent to arterial anastomosis using 4 mm x 4 cm and 6 mm x 4 cm | | balloon catheter. MEDICATIONS: Isovue-200 34 cc, Heparin 5000 units intravenous, Versed | | 2 mg intravenous, fentanyl 50-mcg intravenous. Intra-procedure sedation time 33 | | minutes. The radiation dose 23 mGray, Fluoroscopy time 2.6 minutes. Appropriate | | physiologic monitoring, maintenance of adequate conscious sedation and independent | | senior care supervision performed throughout the procedure. PROCEDURE: Informed | | written consent obtained from the patient after explaining the procedure, risks and | | alternatives. Patient understood the discussion and expressed a wish to proceed.The | | appropriate side and site was labeled and initialed as an independent process antecedent | | to the imaging and intervention, as per protocol at this institution. Patient was | | placed supine on the x-ray table. The left arm prepped in the usual sterile fashion. | | Left the brachiocephalic fistula was accessed using micropuncture needle and exchanged | | for 4-Turkmen micropuncture sheath. Initial fistula pressure was obtained and | | fistulogram obtained from the left cubital fossa to the right atrium. Then, by | | occluding the outflow reflux evaluation the arterial anastomosis obtained. This revealed | | significant, tandem stenosis in proximal left cephalic vein adjacent to arterial venous | | anastomosis. Then,, I decided to perform angioplasty of the venous lesions. A second | | access obtained into mid forearm directed towards the arterial anastomosis using | | micropuncture needle and exchanged for 4 Turkmen short sheath over 0.03, angled | | Glidewire. Subsequently, Glidewire was exchanged for 0.014, mailman wire over 4 Turkmen | | angled glide catheter. Then, 4 mm x 4 cm balloon catheter placed with wire and | | angioplasty the arterial venous anastomosis performed. Then, reflux fissure gram | | revealed significant focal stenosis in proximal cephalic vein. Then, 6 mm x 4 symmetry | | balloon catheter placed across the stenosis and balloon angioplasty performed. Final | | fistulogram obtained. Final fistula pressures obtained. Patient tolerated the procedure | | well. No post complications. All catheters and wires were removed. Hemostasis obtained | | with manual pressure. FINDINGS1. Initial fistula pressure 26/17 mm Hg, arterial | | pressure 143/80 mm Hg, final fistula pressure 21/17 mm Hg.2. Left brachiocephalic | | fissure gram revealed significant, tandem stenosis in proximal left cephalic vein | | adjacent to arterial anastomosis. Rest of the draining veins and central veins widely | | patent.3. Successful angioplasty of the proximal cephalic venous stenosis and | | arteriovenous anastomotic stenosis using 4 mm and 6 limited balloon without incidence. | | IMPRESSION: 1. Successful left brachiocephalic fissure gram and angioplasty the | | significant tandem stenosis in proximal left cephalic vein adjacent to arterial venous | | anastomosis without incidence. 15494, 09332, 66478, 51873 | | | | | |18021, 47265, 23637, 48687 | | | | | + + IR Inj Dialysis Circuit (08/21/2014 6:01 PM PDT) + + | Specimen | + + | | + + + + + | Impressions | Performed At | + + + | 1. Successful left brachiocephalic fissure gram and angioplasty | | | the significant tandem stenosis in proximal left cephalic vein | | | adjacent to arterial venous anastomosis without incidence. | | | 73775, 77708, 93938, 87244 | | + + + + + + | Narrative | Performed At | + + + | [facility] 08/21/2014 6:01 PM | | | HISTORY: 19 years. Female. With chronic kidney disease stage V | | | presents with decreasing KT over V. 585.6, 996.1 EXAMINATION | | | Left brachiocephalic fistulogram and angioplasty of the multiple | | | tandem stenosis in proximal left cephalic vein adjacent to arterial | | | anastomosis using 4 mm x 4 cm and 6 mm x 4 cm balloon catheter. | | | MEDICATIONS: Isovue-200 34 cc, Heparin 5000 units intravenous, | | | Versed 2 mg intravenous, fentanyl 50-mcg intravenous. | | | Intra-procedure sedation time 33 minutes. The radiation dose 23 | | | mGray, Fluoroscopy time 2.6 minutes. Appropriate physiologic | | | monitoring, maintenance of adequate conscious sedation and | | | independent senior care supervision performed throughout the | | | procedure. PROCEDURE: Informed written consent obtained from | | | the patient after explaining the procedure, risks and alternatives. | | | Patient understood the discussion and expressed a wish to proceed. | | | The appropriate side and site was labeled and initialed as an | | | independent process antecedent to the imaging and intervention, as per | | | protocol at this institution. Patient was placed supine on the | | | x-ray table. The left arm prepped in the usual sterile fashion. | | | Left the brachiocephalic fistula was accessed using micropuncture | | | needle and exchanged for 4-Turkmen micropuncture sheath. Initial | | | fistula pressure was obtained and fistulogram obtained from the left | | | cubital fossa to the right atrium. Then, by occluding the outflow | | | reflux evaluation the arterial anastomosis obtained. This revealed | | | significant, tandem stenosis in proximal left cephalic vein adjacent | | | to arterial venous anastomosis. Then,, I decided to perform | | | angioplasty of the venous lesions. A second access obtained into mid | | | forearm directed towards the arterial anastomosis using micropuncture | | | needle and exchanged for 4 Turkmen short sheath over 0.03, angled | | | Glidewire. Subsequently, Glidewire was exchanged for 0.014, mailman | | | wire over 4 Turkmen angled glide catheter. Then, 4 mm x 4 cm balloon | | | catheter placed with wire and angioplasty the arterial venous | | | anastomosis performed. Then, reflux fissure gram revealed | | | significant focal stenosis in proximal cephalic vein. Then, 6 mm x 4 | | | symmetry balloon catheter placed across the stenosis and balloon | | | angioplasty performed. Final fistulogram obtained. Final fistula | | | pressures obtained. Patient tolerated the procedure well. No post | | | complications. All catheters and wires were removed. Hemostasis | | | obtained with manual pressure. FINDINGS 1. Initial fistula | | | pressure 26/17 mm Hg, arterial pressure 143/80 mm Hg, final fistula | | | pressure 21/17 mm Hg. 2. Left brachiocephalic fissure gram revealed | | | significant, tandem stenosis in proximal left cephalic vein adjacent | | | to arterial anastomosis. Rest of the draining veins and central veins | | | widely patent. 3. Successful angioplasty of the proximal cephalic | | | venous stenosis and arteriovenous anastomotic stenosis using 4 mm and | | | 6 limited balloon without incidence. | | + + + + + | Procedure Note | + + | Cedric, Rad Conversion - 10/19/2018 6:38 AM PDT [facility] | | FISTULAGRAM08/21/2014 6:01 PM HISTORY:19 years. Female. With chronic kidney disease | | stage V presents with decreasing KT over V. 585.6, 996.1 EXAMINATION Left | | brachiocephalic fistulogram and angioplasty of the multiple tandem stenosis in proximal | | left cephalic vein adjacent to arterial anastomosis using 4 mm x 4 cm and 6 mm x 4 cm | | balloon catheter. MEDICATIONS: Isovue-200 34 cc, Heparin 5000 units intravenous, Versed | | 2 mg intravenous, fentanyl 50-mcg intravenous. Intra-procedure sedation time 33 | | minutes. The radiation dose 23 mGray, Fluoroscopy time 2.6 minutes. Appropriate | | physiologic monitoring, maintenance of adequate conscious sedation and independent | | senior care supervision performed throughout the procedure. PROCEDURE: Informed | | written consent obtained from the patient after explaining the procedure, risks and | | alternatives. Patient understood the discussion and expressed a wish to proceed.The | | appropriate side and site was labeled and initialed as an independent process antecedent | | to the imaging and intervention, as per protocol at this institution. Patient was | | placed supine on the x-ray table. The left arm prepped in the usual sterile fashion. | | Left the brachiocephalic fistula was accessed using micropuncture needle and exchanged | | for 4-Turkmen micropuncture sheath. Initial fistula pressure was obtained and | | fistulogram obtained from the left cubital fossa to the right atrium. Then, by | | occluding the outflow reflux evaluation the arterial anastomosis obtained. This revealed | | significant, tandem stenosis in proximal left cephalic vein adjacent to arterial venous | | anastomosis. Then,, I decided to perform angioplasty of the venous lesions. A second | | access obtained into mid forearm directed towards the arterial anastomosis using | | micropuncture needle and exchanged for 4 Turkmen short sheath over 0.03, angled | | Glidewire. Subsequently, Glidewire was exchanged for 0.014, mailman wire over 4 Turkmen | | angled glide catheter. Then, 4 mm x 4 cm balloon catheter placed with wire and | | angioplasty the arterial venous anastomosis performed. Then, reflux fissure gram | | revealed significant focal stenosis in proximal cephalic vein. Then, 6 mm x 4 symmetry | | balloon catheter placed across the stenosis and balloon angioplasty performed. Final | | fistulogram obtained. Final fistula pressures obtained. Patient tolerated the procedure | | well. No post complications. All catheters and wires were removed. Hemostasis obtained | | with manual pressure. FINDINGS1. Initial fistula pressure 26/17 mm Hg, arterial | | pressure 143/80 mm Hg, final fistula pressure 21/17 mm Hg.2. Left brachiocephalic | | fissure gram revealed significant, tandem stenosis in proximal left cephalic vein | | adjacent to arterial anastomosis. Rest of the draining veins and central veins widely | | patent.3. Successful angioplasty of the proximal cephalic venous stenosis and | | arteriovenous anastomotic stenosis using 4 mm and 6 limited balloon without incidence. | | IMPRESSION: 1. Successful left brachiocephalic fissure gram and angioplasty the | | significant tandem stenosis in proximal left cephalic vein adjacent to arterial venous | | anastomosis without incidence. 07713, 55561, 48847, 61961 | | | | | |45266, 10428, 10911, 52566 | | | | | + + documented in this encounter Visit Diagnoses + + | Diagnosis | + + | End stage renal disease (HCC) End stage renal disease | + + | Mechanical complication of other vascular device, implant, and graft | + + documented in this encounter
--- OUTSIDE RECORDS SUMMARY | ~2019-12-25 | XMS | Encounter Summary ---
Demographics + + + | Address | [address] | | | [place] [address] | + + + | Home Phone [...] Team Providers + +------+ + | Care Case Management Rn Name | Role | Phone | + [...] [address] | | | | | ([facility]) | [address] | [address] | | | | | Anemia in | [place], [place] | [place], | | | | | ESRD | [address] | [place] [address] | | | | | (end-stage | Phone: | Phone: | | | | | renal | [phone] | [phone] | | | | | disease) | Fax: | Fax: | | | | | ([facility]) | [phone] | [phone] | | | | | Procedures | | | | | | | [place] OFFICE | | | | | | | OUTPATIENT | | | | | | | VISIT 25 | | | | | | | MINUTES | | | +--------+--------+ + + + + Encounter Details +--------+ + + + + | Date | Type | Department | Care Team | Description | +--------+ + + + + | 06/28/ | Off-Site | [facility] [place] | Jorje Camp | ESRD (end stage | | 2016 | Visit | NEPHROLOGY [address] | M, DO [address] | renal disease) ([facility]) | | | | [address] | [address] [place] | (Primary Dx); | | | | [place], [place] | [place] [address] | Secondary | | | | [address] | [phone] | hyperparathyroidism | | | | [phone] | | ([facility]) | +--------+ + + + + [...] + + + | Blood Pressure | 107/63 | 06/29/2015 3:30 PM | | | | | PDT | | + + + + + | Pulse | - | - | | + + + + + | Temperature | 36.5 C (97.7 F) | 06/29/2015 3:30 PM | | | | | [...] encounter Progress Notes Jorje Camp DO - 06/30/2015 3:32 PM PDT Subjective: DIALYSIS NOTE Patient ID: Dara Weldon is a 20 y.o. female. 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 She also has anemia secondary to CKD, SHPTH, centripetal obesity . Dara has intermittently has had some trouble with missed treatments. She does appear to be doin g some better with her fluid restriction. She is polite and cooperative here in clinic. 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 Outpatient Prescriptions Marked as Taking for the 06/29/15 encounter (Off-Site Visit) with Camille Camp DO [...] tapes Morphine Itching and Rash Objective: BP 107/63 mmHg | Temp(Src) 36.5 C (97.7 F) EDW 103.5 kg Physical Exam Heart: Regular rate and rhythm with no S3, S4, murmur or rub. Lungs: CTA bilaterally. No rales or wheezes. Abdomen: Soft, obese, nontender, normoactive bowel sounds, no CVA tenderness.. Extremities: No clubbing, cyanosis, or edema. QB 400 at left arm AVF. LAB: BUN 69, Cr 12.1, K+ 4.3, HCO3 21, Ca++ 9.6, PO4 9.7, PTH 792, Alb 3.4, Hb 12.8, eKT/V = 1.66. Assessment: 1. ESRD-- she appears well dialyzed clinically by the most recent KT/V. 2. Hypertension--good control at the current dry weight. 3. SHPTH--her phosphorus control still remains a large challenge. It is difficult for t o appreciate how this could harm her health in the long run, as she is relatively asymptomatic at this point? I reinforced the need to take Renvela exa ctly AC and HS, to optimize her phosphorus control. 4. Nutrition--I am not sure hancock structured that her home environment is? She has no obvi ous inflammation on exam. I encouraged her to maximize her daily intake of high biological value protein. 5. Transplantation-- honestly , I think that Dara is too immature to monitor a renal all ograft and its attendant immunosuppression at this point. My gut feeling is that she would be at high risk for graft loss due to noncompliance ? Hopefully, with time, her behavior wi ll change . 6. Anemia-- she appears to have had a very robust response to her earlier EPO. Will marcia nue to hold the EPO until her Hb is < 11.0 g/dl , at this point. 7. Centripetal obesity--about the same. I have counseled Dara about pursuing some form of regular exercise. Plan: 1. 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 I think that basically she needs to diplomatically, hear this message repeatedly , until she obtains some better insight into healthy [facility] ce or her maturity level improves. 2. Her BP and ECF volume appear stable at there current EDW. 3. Will recheck her PTH, Hb, iron profile, and adequacy next month. CC: Jamil Harden documented in thi s [...]
--- OUTSIDE RECORDS SUMMARY | ~2019-12-25 | XMS | Encounter Summary ---
Demographics + + + | Address | [address] | | | [place] [address] [...] Author | [facility] | | | and [place] | + + + | Organization | [facility] | | [...] Providers + +------+ + | Care Clinical Lab Specialist Name | Role | Phone | + +------+ + PCP | Unavailable | + +------+ + Reason for Visit + +--------+ + | Reason | Onset | Comments | | | Date | | + +--------+ + | Medication Orders | 01/13/ | | | | 2017 | | + +--------+ + Encounter Details +--------+ + + + + | Date | Type | Department | Care Team | Description | +--------+ + + + + | 01/13/ | Telephone | [facility] [place] | Daniela Ibarra, | Medication Orders | | 2017 | | NEPHROLOGY [address] | [address] | | | | | [address] | [address] [place] | | | | | [place], [place] | [place] [address] | | | | | [address] | [phone] | | | | | [phone] | | | +--------+ + + + [...] this encounter Miscellaneous Notes Telephone Encounter - Amina Hansen RN - 01/13/2017 11:22 AM PSTLM for patient to call o office. elephone En counter - Amina Hansen RN - 01/13/2017 11:12 AM PST----- Message from Daniela Ibarra MD sent at 01/13/2017 10:53 PST ----- Regarding: RE: medication Ok to take . ----- Message ----- From: Amina Hansen RN Sent: 01/13/2017 9:47 To: Daniela Ibarra MD Subject: medication I received a prior auth for abdiel-bobbi, but in her chart, she has vitamin listed. [facility] she be taking? Thanks! documented in this en counter Plan of Treatment Not on filedocumented as of this encounter Visit Diagnoses Not on filedocumented in this encounter"
--- OUTSIDE RECORDS SUMMARY | ~2019-12-25 | XMS | Encounter Summary ---
Demographics + + + | Address | [address] | | | [place] [address] | + + + | Home Phone [...] + + + | Author | [facility] | | | and [place] | + + + | Organization | [facility] | | | [...] Providers + +------+ + | Care Auto Mechanics Instructor Name | Role | Phone | [...] + | 03/05/ | Clinical | [facility] | Blake Chavarria | End stage renal | | 2013 | Support | SURGERY [address] | MD Antonieta, FACS [address] | failure on dialysis | | | | [address] [place], [place] | [facility] | (HCC) (Primary Dx) | | | | [address] | [place] [address] | | | | | [phone] | [phone] | | | | | | | [...]
--- OUTSIDE RECORDS SUMMARY | ~2019-12-25 | XMS | Encounter Summary ---
Demographics + + + | Address | [address] | | | [place] [address] | + + + | Home Phone [...] | Author | [facility] | | | and [place] | + + + | Organization | [facility] | | [...] Team Providers + +------+ + | Care Test Engine Evaluator Name | Role | Phone | + +------+ + PCP | Unavailable | + +------+ + Encounter Details +--------+ + + + + | Date | Type | Department | Care Team | Description | +--------+ + + + + | 10/28/ | Hospital | [facility] | Conversion | ESRD (end stage | | 2015 | Encounter | CENTER CV INTRA OP | Transaction, | renal disease) (HCC) | | | | [address] | Provider Unknown | | | | | [place], [place] | [phone] | | | | | [address] | | | | | | [phone] | Colten Hutchins MD | | | | | | [address] | | | | | | [place], [place] | | | | | | [address] | | | | | | | [...] - 10/28/2014 10:57 AM PDT Consult* by RKISHNA Mcclain at 10/28/14 1055 Author: KRISHNA Mcclain Service: Interventional Radiology Author Type: Advanced R egistered Nurse Practitioner Filed: 10/28/14 2620 Date of Service: 10/28/14 1057 Status: Attested Public Policy Mediator: KRISHNA Mcclain (Advanced Registered Nurse Practitioner) Cosigner: Colten Hutchins MD PhD at 10/28/14 1158 Attestation signed by Colten Hutchins MD PhD at 10/28/14 1159 I have independently performed history and physical then reviewed the notes, assessments, a nd/or procedures performed by KRISHNA Hurtado, I do not concur with her/his documentatio n of Dara Louise. Colten Hutchins MD, PhD, [facility] Interventional Radiology and Vascular Medicine Office Vascular [...] on 04/08/[address] Sujit romero at [facility]. Patient reports over the past 2 weeks her flow rate during dialysis swanson s decreased. She denies any increased bleeding after dialysis or high pressures during dialy sis. She notes that the thrill to her AV fistula has decreased over her access sites and is only noted in the most distal aspect of the fistula. Her last fistulogram was performed here at [facility] by Dr. Whaley on 08/21/2014 and was noted to have a tandem stenosis in the proxi mal left cephalic vein adjacent to the arterial venous anastomosis. She underwent angioplast y with good results. She was referred to us for evaluation of her AV fistula. Hospital Problem List: Patient Active Problem List Diagnosis HSP (Henoch Schonlein purpura) ([facility]) ESRD on hemodialysis ([facility]) Review of Systems: Review of [...] (Henoch-Schonlein purpura) nephritis Hypertension Clotted dialysis access ([facility]) 2014 ESRD (end stage renal disease) ([facility]) Anemia Past Surgical History: Past Surgical History Procedure Laterality Date Av fistula placement Renal biopsy Laparoscopic peritoneal dialysis catheter insertion x2 Abdominal surgery Av fistula repair Left 03/07/2014 Procedure: AV FISTULA - GRAFT REPAIR/REVISION; Surgeon: Rik Simon MD; [facility]; Service: Vascular; Laterality: Left; Declot graft Left 03/07/2014 Procedure: GRAFT - DECLOT; Surgeon: Rik Simon MD; Location: [facility]; Service: Va scular; Laterality: Left; Av fistula placement Left 04/08/2014 Procedure: AV FISTULA; Surgeon: Rik Simon MD; Location: [facility]; Service: Vascul ar; Laterality: Left; cephalic Dialysis fistula creation N/A 04/08/2014 Procedure: DIALYSIS CATHETER - INSERTION; Surgeon: Rik Simon MD; Location: [facility]; Service: Vascular; Laterality: N/A; tunneled catheter Laparoscopic peritoneal dialysis catheter insertion Right 07/2013 current dialysis access MWF dialysis Superficialization of av fistula Left 06/24/2014 Procedure: AV FISTULA - SUPERFICIALIZATION; Surgeon: Rik Simon MD; Location: [facility]; Service: Vascular; Laterality: Left; Family [...] Imaging Data: IR angioplasty AV fistula venous [[id number]] Status: Final result Study Result DARA LOUISE [...] maintenance of adequate conscious sedation and independent jail supervision performed throughout the procedure. PROCEDURE: Informed [...] accessed using micropuncture needle and exchanged for 4-Sammarinese micropuncture sheath. Initial fistula pressure was obtained [...] using micropuncture needle and exchanged for 4 Sammarinese shor t sheath over 0.03, angled Glidewire. Subsequently, Glidewire was exchanged for 0.014, mailm an wire over 4 Sammarinese angled glide catheter. Then, 4 mm x [...] to arterial venous anastomosis without incidenc [place]. 499[address], [address], 58997, [address]8747 Physical Examination: Filed Vitals: 10/28/14 1030 BP: [...] encounter Miscellaneous Notes Op Note - Jigar [id number], MD - 10/28/2014 1:28 PM PDTFormatting of this note might b e different from the original. Brief Op Note by Colten Hutchins MD PhD at 10/28/14 3394 Author: Colten Hutchins MD PhD Service: Interventional Radiology Author Type: Physician Filed: 10/28/14 5432 Date of Service: 10/28/141 Status: Signed Public Policy Mediator: Colten Hutchins MD PhD (Physician) Interventional Radiology [...] COMPARISON STUDIES: 08/21/2014 | | | PRIMARY DEHYDRATING PRESS OPERATOR: Colten Hutchins MD, PhD, [facility] OPERATIONS: 1. | | | Left [...] to the area of stenosis. A 4 Sammarinese | | | sheath was placed. Patient [...] | perianastomotic stenoses. COMPARISON STUDIES: 08/21/2014 PRIMARY DEHYDRATING PRESS OPERATOR: Colten | | MD Liset, PhD, [...] to the area of stenosis. A 4 Sammarinese sheath was placed. Patient was | | [...] COMPARISON STUDIES: 08/21/2014 | | | PRIMARY DEHYDRATING PRESS OPERATOR: Colten Hutchins MD, PhD, [facility] OPERATIONS: [...] to the area of stenosis. A 4 Sammarinese | | | sheath was placed. Patient [...] | perianastomotic stenoses. COMPARISON STUDIES: 08/21/2014 PRIMARY DEHYDRATING PRESS OPERATOR: Colten | | MD Liset, PhD, [facility] OPERATIONS:1. Left upper extremity fistulogram2. Ultrasound-guided | [...] to the area of stenosis. A 4 Sammarinese sheath was placed. Patient was | | [...] EXTERNAL | | | | performed at [facility] [place] | K/uL | LAB | | | | [address];[place], [place] | | | | | | [address] | | | | + + + + + + | Non- | 3.88Comment: Testing | 3.70 - 5.10 | EXTERNAL | | | Red Blood | performed at [facility] [place] | M/uL | LAB | | | Cells | [address];[place] | | | | | Counted | [id number] | | | | + + + + + + | Hemoglobin | 14.1Comment: Testing | 11.3 - 15.5 | EXTERNAL | | | | performed at [facility] [place] [place] | g/dL | LAB | | | | [address];[place] | | | | | | [address] | | | | + + + + + + | Hematocrit, | 41.4Comment: Testing | 34.0 - 46.0 % | EXTERNAL | | | POC | performed at [facility] [place] [place] | | LAB | | | | [address];[place] | | | | | | [address] | | | | + + + + + + | MCV | 106.7 (H)Comment: | 80.0 - 100.0 fl | EXTERNAL | | | | Testing performed at | | LAB | | | | [facility] [place] | | [address];[place] [address] | | | | + + + + + + | MCH | 36.4 (H)Comment: Testing | 27.0 - 34.0 pg | EXTERNAL | | | | performed at [facility] [place] | | LAB | | | | [address];[place] | | | | | | [address] | | | | + + + + + + | MCHC | 34.1Comment: Testing | 32.0 - 35.5 | EXTERNAL | | | | performed at [facility] [place] [place] | g/dL | LAB | | | | [address];[place] | | | | | | [address] | | | | + + + + + + | RDW-CV | 54.7 (H)Comment: Testing | 37 - 53 fl | EXTERNAL | | | | performed at [facility] [place] | | LAB | | | | [address];[place] | | | | | | [address] | | | | + + + + + + | Platelet | 168Comment: Testing | 150 - 400 K/uL | EXTERNAL | | | Count | performed at [facility] [place] [place] | | LAB | | | Plasma | [address];[place] | | | | | | [address] | | | | + + + + + + | MPV | 9.1Comment: Testing | fl | EXTERNAL | | | | performed at [facility] [place] [place] | | LAB | | | | [address];[place] | | | | | | [address] | | | | + + + [...] | | performed at [facility] [place] [place];[address] | | | | | | [address];[place], [place] | | | | | | [address] | | | | + + + [...] EXTERNAL | | | | performed at [facility] [place] | mmol/L | LAB | | | | [address];[place] | | | | | | [address] | | | | + + + + + + | K | 3.9Comment: Testing | 3.5 - 4.9 | EXTERNAL | | | | performed at [facility] [place] [place] | mmol/L | LAB | | | | [address];[place] | | | | | | [address] | | | | + + + + + + | Cl | 97 (L)Comment: Testing | 99 - 109 mmol/L | EXTERNAL | | | | performed at [facility] [place] | | LAB | | | | [address];[place] | | | | | | [address] | | | | + + + + + + | CO2 | 34 (H)Comment: Testing | 23 - 32 mmol/L | EXTERNAL | | | | performed at [facility] [place] [place] | | LAB | | | | [address];[place] | | | | | | [address] | | | | + + + + + + | Anion Gap | 12Comment: Testing | 5 - 20 mmol/L | EXTERNAL | | | | performed at [facility] [place] | | LAB | | | | [address];[place] | | | | | | [address] | | | | + + + + + + | Glucose, | 87Comment: Testing | 65 - 99 mg/dL | EXTERNAL | | | Fasting | performed at [facility] [place] | | LAB | | | | [address];[place] | | | | | | [address] | | | | + + + + + + | BUN | 23Comment: Testing | 8 - 25 mg/dL | EXTERNAL | | | | performed at [facility] [place] | | LAB | | | | [address];[place] | | | | | | [address] | | | | + + + + + + | Creatinine | 6.4 (H)Comment: Testing | 0.50 - 1.00 | EXTERNAL | | | | performed at [facility] [place] | mg/dL | LAB | | | | [address];[place] | | | | | | [address] | | | | + + + + + + | BUN/Creatin | 4Comment: Testing | | EXTERNAL | | | ine Ratio | performed at [facility] [place] [place] | | LAB | | | | [address];[place] | | | | | | [address] | | | | + + + + + + | Calcium | 9.5Comment: Testing | 8.5 - 10.5 | EXTERNAL | | | | performed at [facility] [place] | mg/dL | LAB | | | | [address];[place] | | | | | | [address] | | | | + + + + + + | Estimated | CALCULATION NOT | mL/min/1.73m2 | EXTERNAL | | | GFR | PERFORMED. RESULT NOT | | LAB | | | | VALID IF AGE LT 20 | | | | | | YEARS.Comment: Testing | | | | | | performed at [facility] [place] [place] | | | | | | [address];[place] | | | | | | [address] | | | | + + + [...]
--- OUTSIDE RECORDS SUMMARY | ~2019-12-25 | XMS | Encounter Summary ---
Demographics + + + | Address | [address] | | | [place] [address] | + + + | Home Phone [...] Team Providers + +------+ + | Care Last Repairer Name | Role | Phone | [...] | | | | | | | pulomonary | | | | | | | edema, | | | | | | | hypoxic | | | | | | | respiratory | | | | | | | failure | | | +--------+--------+ + + + + Encounter Details +--------+ + + + + | Date | Type | Department | Care Team | Description | +--------+ + + + + | 11/06/ | Hospital | [facility] | Johnathan Brooks, | Chronic right-sided | | 2019 - | Encounter | [facility] | MD Brooks TORRES | heart failure (HCC) | | | | CARE FLOOR [address] | [place] [address] | (Primary Dx); Acute | | 11/09/ | [address] | [phone] | hypoxemic | | 2019 | | [place], [place] | | respiratory failure | | | | [phone] | Darell Kowalski MD | (HCC); Chronic | | | | [phone] | [address] | combined systolic | | | | | [place] [address] | and diastolic heart | | | | | [phone] | failure ([facility]); | | | | | | 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 | | | | | | ([facility]); ESRD on | | | | | | hemodialysis ([facility]); | | | | | | Moderate to severe | | | | | | pulmonary | | | | | | hypertension ([facility]); | | | | | [...] | | | | | | function ([facility]); | | | | | | Non-compliance; | | | | | | Troponin I above | | | | | | reference range; | | | | | | Anemia in ESRD | | | | | | (end-stage renal | | | | | | disease) ([facility]); At | | | | | | high risk for | | | | | | electrolyte | | | | | | imbalance; | | | | | | Hyperkalemia; | | | | | | Pericardial effusion | | | | | | without cardiac | | | | | | tamponade | +--------+ + + + + Social [...] + + + | Blood Pressure | 124/63 | 11/09/2018 11:40 AM | | | | | PDT | | + + + + + | Pulse | 74 | 11/09/2018 11:40 AM | | | | | PDT | | + + + + + | Temperature | 36.6 C (97.9 F) | 11/09/2018 11:40 AM | | | | | PDT | | + + + + + | Respiratory Rate | 16 | 11/09/2018 11:40 AM | | | | | PDT | | + + + + + | Oxygen Saturation | 100% | 11/09/2018 11:40 AM | | | | | PDT | | + + + + + | Inhaled Oxygen | - | - | | | Concentration | | | | + + + + + | Weight | 63.4 kg (139 lb 12.4 | 11/09/2018 12:03 PM | | | | oz) | PDT | | + + + + + | Height | 170.2 cm (5' 7") | 11/06/2018 3:11 PM | | | | | PDT | | + + + + + | Body Mass Index | 21.89 | 11/06/2018 3:11 PM | | | | | PDT | | + + + + + documented in this encounter Discharge Summaries Tejinder Solano MD - 11/09/2018 12:45 PM PDTFormatting of this note might be different fr om the original. [facility] Service: Medicine DISCHARGE SUMMARY Primary Care Physician: Jonathan Alonso Patient Name: Dara Louise : 1995 Date of Admission: 11/06/2018 Date of Discharge: 11/09/2018 Discharge Provider: Darell Kowalski MD Attending Provider: Darell Kowalski MD Discharge Diagnoses: Principal Problem: Pulmonary edema with congestive heart failure with reduced left ventricular function Active Problems: Pericardial effusion without cardiac tamponade Anemia in ESRD (end-stage renal disease) Secondary hyperparathyroidism Chronic combined systolic and diastolic heart failure At high risk for electrolyte imbalance Chronic right-sided heart failure Dilated cardiomyopathy Moderate to severe pulmonary hypertension Non-compliance Non-rheumatic mitral regurgitation Non-rheumatic tricuspid valve insufficiency Pleural effusion, not elsewhere classified ESRD on hemodialysis Discharged Condition: condition: stable Procedures: Thoracentesis, Hemodialysis Consultants: Treatment Team: Cliff Duarte MD; Darell Kowalski MD HPI and HOSPITAL COURSE: The patient is a 23 y.o. female with significant past medical history of Henoch-Schonlein p urpura, end-stage renal disease on hemodialysis (Monday for past 6 years; n ephrologist is Dr. Anguiano), dilated cardiomyopathy, combined congestive and diastolic heart f ailure with ejection fraction of 30 to 35% % and grade 3 diastolic dysfunction, severe TR se jaquan pulmonary hypertension, Per echocardiogram from 06/12/2018), on antiplatelet therapy for AV fistula clots, recent admission from 10/17/2018 to 10/22/2018 due to fluid overload (r equiring management of total body fluid with sequential daily dialysis). Patient reportedly has some missed dialysis session this past Monday and did not have it on Monday or Monday. She did attend dialysis this Monday, however despite usual fluid remov al patient continued to be complaining of dyspnea. Patient states that she started to exper ience dyspnea this past Monday. She observed positional worsening of shortness of breath pa rticularly when reclining. Dyspnea would improve with sitting up. In addition she also dev eloped substernal chest discomfort this past Monday which occurred mostly at rest but was al so affected positional changes (i.e. worse in supine position and better in sitting position ). She had brief relief of substernal chest discomfort during dialysis this past Monday, bu t it reoccurred and continued after dialysis. Because of continuation of her symptoms she d ecided to be evaluated at local emergency room at [facility]. In the ER patient was evaluated by Dr. Lauren ; initial vitals on admission BP 158/118, HR 104, O2 sats as low as 88% on room air,; record does not include presence of fever on vital s recorded in paper chart) . As part of her symptomology work-up, patient underwent twelve-lead EKG (it was verbally rep orted to me by Dr. Lauren , that patient's EKG had no ischemic changes on that study with o nly flattened ST segments in lead II, V5, V6 and aVL; unfortunately the copy of the EKG was not transferred with the patient's paper documentation from [facility] ER). Initial labs: WBC 6.5, hemoglobin 11.0, hematocrit 33.4, platelets 188, sodium 143, potassi um 4.4, chloride 101, CO2 24, anion gap 22.4, calcium 10.0, protein 7.0, albumin 4.1, total bilirubin 1.3, AST 28, ALT 33, alk phos 127, troponin I was 0.192, beta hCG was negative. CT pulmonary angiogram was subsequently performed on 11/06/2018 at 9:55 AM which showed no ev idence of PE, large right pleural effusion with right lung being significantly atelectatic w ith only small portion of each lobar remaining irrigated. Also does loculated pericardial e ffusion measuring approximately 14 x 75 x 80 mm and is in superior mediastinum anterior to t he ascending aorta and main pulmonary artery. The right lung and the entire left lung show hazy density suggesting of edema. Taken from Dr. Brooks [facility] (11/06/2018) HOSPITAL COURSE Patient was admitted for SHORTNESS OF BREATH and chest pain due to pulmonary edema and rece ived dialysis as well as a thoracentesis on her right lung with 1500ml removed. Nephrology w as consulted for patient's ESRD and need for hemodialysis. Patient was then kept in the hosp ital for serial dialysis sessions from 11/06/2018 to 11/09/2018. Patient also received an Ec hocardiogram on 11/06 which showed an EF of 30 percent. The patient was put on 2L of O2 via NC throughout stay due to hypoxia on RA. The patient was put on a renal diet with fluid and salt restriction for her hospital stay and counseled on the importance of diet to renal func tion. There was significant improvement in respiratory condition and pain as well as her lab oratory values. Her vitals remained stable throughout her hospital stay. Patient was tolerat ing an oral diet. Patient is stable for discharge. Last updated on: 11/09/2018 Past Medical History: Diagnosis Date Asthma Clotted dialysis access (HCC) 2014 Congestive heart failure (HCC) ESRD (end stage renal disease) (HCC) HSP (Henoch-Schonlein purpura) nephritis ([facility]) 1987 Hypertension Pericardial effusion without cardiac tamponade 11/07/2018 Past Surgical History: Procedure Laterality Date ABDOMEN SURGERY AV FISTULA REPAIR 02/24/2014 LEFT Radical Cephalic Fistula Creation; Laterality: Left; Surgeon: Blake Chavarria MD ; Location: [facility] MAIN OR AV FISTULA REPAIR Left 03/07/2014 Procedure: AV FISTULA - GRAFT REPAIR/REVISION; Surgeon: Rik Simon MD; Location: [facility] IN OR; Service: Vascular; Laterality: Left; biopsy of kidney age 10 DIALYSIS FISTULA CREATION 04/08/2014 Procedure: DIALYSIS CATHETER - INSERTION; Surgeon: Rik Simon MD; Location: [facility] OR ; Service: Vascular; Laterality: N/A; tunneled catheter.br hemodialysis catheter KIDNEY BIOPSY Left 2003 OTHER SURGICAL HISTORY LAPAROSCOPIC PERITONEAL DIALYSIS CATHETER INSERTION - x2 OTHER SURGICAL HISTORY Right 07/2013 LAPAROSCOPIC PERITONEAL DIALYSIS CATHETER INSERTION - current dialysis access MWF dialysis OTHER SURGICAL HISTORY Left 06/24/2014 SUPERFICIALIZATION OF AV FISTULA - Procedure: AV FISTULA - SUPERFICIALIZATION; Surgeon: Emanuel Simon MD; Location: [facility] MAIN OR; Service: Vascular; Laterality: Left; OTHER SURGICAL HISTORY Left 04/08/2014 AV FISTULA PLACEMENT - Procedure: AV FISTULA; Surgeon: Rik Simon MD; Location: [facility] OR; Service: Vascular; Laterality: Left; cephalic OTHER SURGICAL HISTORY Left 03/07/2014 DECLOT GRAFT - Procedure: GRAFT - DECLOT; Surgeon: Rik Simon MD; Location: [facility] MA[facility] OR ; Service: Vascular; Laterality: Left; peritoneal catheter History reviewed. Allergies Allergen Reactions Adhesive & Tape Rash Certain tapes Fentanyl Itching Iodinated Diagnostic Agents Itching Pt c/o face itching during fistulagram Methylphenidate Other (See Comments) Patient says skin was crawling Morphine Itching and Rash Reglan [Metoclopramide] Itching Lisinopril cough No medications prior to admission. Discharge Exam: Temp: [36 C (96.8 F)-36.8 C (98.3 F)] 36.6 C (97.9 F) Pulse: [57-82] 74 Resp: [16-18] 16 BP: (114-140)/(63-90) 124/63 Physical Exam Constitutional: She is oriented to person, place, and time. She appears well-developed and well-nourished. Patient was out of bed when I came in. Patient reports that she is able to move around with out problems. HENT: Head: Normocephalic. Eyes: Pupils are equal, round, and reactive to light. Pale conjunctiva Neck: No JVD present. No tracheal deviation present. Cardiovascular: Normal rate, regular rhythm and intact distal pulses. Murmur heard. Has left sided AVF which has demonstrate no problems for dialysis catheter access. Pulmonary/Chest: Effort normal and breath sounds normal. No stridor. No respiratory distres s. She has no wheezes. She has no rales. She exhibits no tenderness. Abdominal: Soft. Bowel sounds are normal. She exhibits no mass. There is tenderness. There is no rebound. No hernia. Musculoskeletal: She exhibits no edema or deformity. Neurological: She is alert and oriented to person, place, and time. Skin: Skin is warm and dry. Psychiatric: She has a normal mood and affect. DATA: Labs Recent Results (from the past 24 hour(s)) Protime INR Result Value Ref Range INR 1.3 CBC with Differential Result Value Ref Range WBC 4.25 3.80 - 11.00 K/uL RBC 2.63 (L) 3.70 - 5.10 M/uL Hemoglobin 9.4 (L) 11.3 - 15.5 g/dL Hematocrit 28.0 (L) 34.0 - 46.0 % MCV 106.6 (H) 80.0 - 100.0 fl MCH 35.8 (H) 27.0 - 34.0 pg MCHC 33.6 32.0 - 35.5 g/dL RDW-SD 51.2 37 - 53 fl Platelet Count 132 (L) 150 - 400 K/uL MPV 10.2 fl Diff Type AUTOMATED % Neutrophils 59.30 % % Lymphocytes 22.71 % Monocyte % 6.17 % Eosinophils % 10.89 % Basophils % 0.93 % Neutrophils, Absolute 2.52 1.90 - 7.40 K/uL Absolute Lymphocytes 0.97 (L) 1.00 - 3.90 K/uL Absolute Monocytes 0.26 0.00 - 0.80 K/uL Eosinophils, Absolute 0.46 0.00 - 0.50 K/uL Basophils, Absolute 0.04 0.00 - 0.10 K/uL RBC Morphology 2+ Comprehensive Metabolic Panel Result Value Ref Range Na 140 135 - 145 mmol/L K 4.3 3.5 - 4.9 mmol/L Cl 99 99 - 109 mmol/L CO2 33 (H) 23 - 32 mmol/L Anion Gap 12 5 - 20 mmol/L Glucose 98 65 - 99 mg/dL BUN 46 (H) 8 - 25 mg/dL Creatinine 7.5 (H) 0.50 - 1.00 mg/dL BUN/Creatinine Ratio 6 Calcium 9.0 8.5 - 10.5 mg/dL Protein, Total 6.2 (L) 6.3 - 8.2 g/dL Albumin 3.3 (L) 3.6 - 5.0 g/dL Globulin 2.9 1.3 - 4.9 g/dL A/G Ratio 1.1 1.0 - 2.4 BILIRUBIN, TOTAL 0.5 0.1 - 1.5 mg/dL ALK PHOS 108 35 - 115 U/L AST 15 10 - 45 U/L ALT 30 10 - 65 U/L Estimated GFR 7 (L) >60 mL/min/1.73m2 Phosphorus Result Value Ref Range Phosphorus 7.6 (H) 2.3 - 4.8 mg/dL Microbiology Microbiology Results (Last 14 Days by Collected Date with Culture/Sensitivity) Procedure Component Value Units Date/Time Culture, Body Fluid Sterile [[id number]] Collected: 11/07/18 1515 Order Status: Completed Lab Status: Preliminary result Updated: 11/09/18 141 Specimen: Body Fluid from Pleural Fluid, Right Special Requests RIGHT SIDE Special Requests Testing performed at [facility];[address] [place] [address];[place] [address] Gram Stain Result NO CELLS OR ORGANISMS SEEN RESULT NO GROWTH 2 DAYS RESULT Testing performed at [facility], [address] [place] [address] Comment: Testing performed at [facility], [address] [place] [address], [place] [address] Culture, Body Fluid Sterile [[id number]] Order Status: Canceled Lab Status: No result Specimen: Body Fluid from Pleural Fluid, Right Antibiotics None Imaging None PATIENT INSTRUCTIONS Home or Self Care Activity: As tolerated Diet: renal diet Wound Care: none needed Discharge Medications New Medications Details losartan 25 mg tablet Take 1 tablet by mouth Daily. aka: ISIS Changed Medications Details doxercalciferol 2 mcg/mL injection [...] total) into the skin every 7 days. metoprolol succinate 50 mg 24 hr tablet [...] mLs into the vein Once a week. Discontinued Medications valsartan 40 mg tablet aka: DIOVAN Follow Up: Jonathan Alonso MD [address] [place] [address] In 1 week René Anguiano MD [address] [place] [address] In 1 week Discharge took 60 minutes, to include final examination, discussion of admission, and prepa ration of prescriptions, instructions for on-going care, follow up and documentation of disc harge summary. Discharge summary prepared in conjunction with medical student Yefri Meek, MS3. Tejinder Solano MD 11/09/2018 Associated attestation - Darell Kowalski - 11/09/2018 4:49 PM PDTAttending: Pt is seen and examined with resident. Discussed with the resident and agree with the resid ent's findings and plan as documented in the resident's note.Laboratory tests and radiology images have been independently reviewed and confirmed. My thoughts have been incorporated in the above-mentioned note. Darell Kowalski MD, documented in this encounter Medications at Time [...] | | | | | renal disease) ([facility]) | protocol | | | [...] as of this encounter Progress Notes Daniela Vyas RN - 11/09/2018 3:46 PM PDTPatient left private vehicle with her sister. DME equipment order sent to [place] [facility]. She refused oxygen delivery to the ospital saying that she just wanted to go home. Orders state 1L for ambulating only.Liliana james signed by Daniela Vyas, ABRIL at 11/09/2018 3:47 PM Anival Patten RRT - 019 12:45 PM PDT 11/09/18 1244 Oxygen Therapy Home O2 eval performed? yes Resting on RA (%) 95 Exercising on RA (%) 86 Exercising on O2 (%)(add L/Min in comment) 90 (placed on 1lpm) Anival Patten RRT - 11/09/2018 11:29 AM PDTPatient having dialysis. Home oxygen eval on hold. Electronically si gned by Anival Paiz RRT at 11/09/2018 11:29 AM Jae Pickens RN - 11/09/2018 5:26 AM PDTPt walked four laps around unit with walker and did not co SOB. Pain PRN med g iven for back and incisional pain. No other acute changes during shift. Chart check comple te Kimberly Medel RN - 11/08/2018 6:56 PM PDTAfter diet was explained thoroughly to pt, pt had [place] delivered to room. Pt was reminded of diet restrictions. Kimberly Lyons RN 18:58 Carlos toro signed by Kimberly Lyons RN at 11/08/2018 6:59 PM Cliff Pozo MD - 11/08/2018 1:12 PM PDT 8125/8125-01 LOS: 2 days Dara Louise is a 23 y.o. woman followed for ESRD management. Current hospitalization is with recurrent hyperkalemia, decompensated congestive heart fail ure, recurrent pleural effusion, pericardial effusion secondary to missed dialysis and lack of adherence to dietary salt/fluid restriction.. Last outpatient dialysis was this week Monday. She missed 2 dialysis sessions on the and 29 October. She feels OK for the most part. Chest pain has resolved. She had thoracentesis yesterday with 1.5 L removed from the right lung. She is also going to have ultrafiltration today with plan for 1.5 to 2 L ultrafiltration. She is not tachycardic and blood pressure has been stable. There are no other significant overnight events. PMH, PSH, Social history reviewed in chart. [...] noted General appearance: Sitting up in bed comfortably. Head/Neck: FROM, supple. Facial puffiness noted. Lungs: Reduced air entry right lower infrascapular area with good air entry on the left cortney e. [...] no evidence of malfunction/inflammation. Vital Signs: BP 109/72 | Pulse 60 | Temp 36.6 C (97.8 F) (Oral) | Resp 16 | Ht 1.702 m (5' 7") | Wt 68.5 kg (151 lb 1.6 oz) | LMP (Within Days) Comment: 06/2017 | SpO2 97% | Breastfeed ing? No | BMI 23.67 kg/m Lab Results Component Value Date NA 137 11/08/2018 K 4.5 11/08/2018 CL 96 (L) 11/08/2018 CO2 30 11/08/2018 ANIONGAP 16 11/08/2018 GLU 80 11/08/2018 BUN 32 (H) 11/08/2018 CREA 5.6 (H) 11/08/2018 LABCREA 7.2 (H) 10/19/2018 EGFR 9 (L) 11/08/2018 BUNCREARATIO 6 11/08/2018 BCR 4 10/19/2018 TP 6.5 11/08/2018 CALCIUM 9.6 11/08/2018 PHOSPHORUSST 7.3 (H) 08/21/2018 ALBUMIN 3.2 (L) 11/08/2018 MG 2.3 11/07/2018 ELP 3.3 11/08/2018 AGRATIO 1.0 11/08/2018 BILI 0.6 11/08/2018 BILITOT 0.8 10/18/2018 ALKPHOS 125 (H) 11/08/2018 ALKPEX 89 10/18/2018 AST 24 11/08/2018 ALT 40 11/08/2018 WBC 7.11 11/08/2018 HGB 10.6 (L) 11/08/2018 LABPLAT 156 10/18/2018 LDH 202 11/07/2018 No results found for: PHUR, PROTUA, BLOODU, WBCU, RBCU, LEUKOESTUA, NITRITEUA, BACTERIA, EP IS, LABCOLO, CLARITY, GLUCOSEU, BILIRUBINUA, KETONES, HYALINECASTS No results found for: ALDOST, RENIN Lab Results Component Value Date CRP 5.1 (H) 05/28/2018 HBSAB NON REACTIVE 05/28/2018 HCVAB NON REACTIVE 05/28/2018 No results found for: HBA1C, LABGLYC, CHOL, TRIG, HDL, LDLEX, LDLHDL, CHOLHDL, VLDL Lab Results Component Value Date TROPONINT 0.045 (H) 11/07/2018 TROPONINT 0.045 (H) 11/06/2018 TROPONINT 0.066 (H) 11/06/2018 Lab Results Component Value Date BNP 1,151.26 (H) 10/17/2018 BNP 1,153.92 (H) 05/27/2018 BNP 1,728.24 (H) 05/26/2018 Echocardiogram from 12 June this year showed ejection fraction of 30 to 35% with restrictiv e LV diastolic pattern, moderate mitral regurgitation, severe tricuspid regurgitation and se jaquan pulmonary hypertension. Relevant problems: 1. Hypervolemia with congestive heart failure 2. End-stage renal disease on hemodialysis 3. Nonadherence to dialysis prescription 4. Recurrent right pleural effusion 5. Pericardial effusion 6. Anemia, chronic renal failure Assessment She is hemodynamically stable with no evidence of fever/tachycardia/bradycardia/severe hypo tension or severe hypotension/hypoxia. With lack of dialysis, recurrent pleural effusion and pericardial effusion plan is to dialy ze/perform ultrafiltration every day. Given that ultrafiltration has been limited today with cramping we will plan for slow UF. Hypervolemia has improved with HD/UF/thoracentesis. Acute KS has been ruled out. Recommendations: Plan for ultrafiltration today albeit at a lower ultrafiltration rate. Schedule HD tomorrow per schedule. Continue current medications including ARB/diuretic as she is nonoliguric. Strict 2 g sodium, 1 g potassium, 1 g phosphorus, 1 g/kg protein diet. Please dose all medications for an eGFR of less than 10 ml/min/1.73 m2. NSAIDS/SUAREZ 2 inhibitors should be avoided. Aluminum/magnesium containing antacids and magnesium/phosphate containing enemas should be avoided. Fluid should be restricted to less than 1.5 L in a 24 hr period. Strict I/O should be done. Cliff Duarte MD 11/08/2018 She was seen earlier in the day and charting was completed later after rounds. Portions of my previous notes have been carried over for continuity of chart review/care. Dictation software, [employer], was used which may contain error for similar sounding words. Pe rsonal communication is requested for any clarification. Also please do not construe any information/orders from unsigned notes. Recommendations are solely recommendations and not orders (unless explicitly stated so) and primary ordering authority is with primary team. Prognosis is guarded in view of multiple comorbid illnesses and ESRD/systolic CHF/hypervole rhina/non adherence to dietary salt/fluid restriction/dialysis prescription including but not limited to . aspirin 81 mg Oral Daily clopidogrel 75 mg Oral Daily losartan 25 mg Oral Daily metoprolol succinate 50 mg Oral Daily pantoprazole 40 mg Oral QAM AC sevelamer carbonate 1,[address] Gupta will [facility] Yefri Andres, Medical Student - 11/08/2018 1:05 PM PDTFormatting of this note might be different from the [facility] Progress Note Pt: Dara Louise AGE/SEX: 23 y.o. ROOM: [facility]/8125- : 1995 PCP: Jonathan Alonso MD PATIENT SUMMARY Dara Louise is a 23 y.o. female with history of HSP, ESRD on hemodialysis, dilated cardiomyopathy, ejection fraction of 30-35 percent, and severe TR and pulmonary hypertensio n who is on day 1 of admission for pulmonary edema with congestive heart failure with reduce d left ventricular EF who presented with dyspnea and substernal chest pain. Patient reported she missed a dialysis session on Monday and didn't get dialysis done until this past Monday . In the event of dialysis, the patient reported continued SOB and dyspnea. SUBJECTIVE Patient reports that she has 7/10 pain in her abdomen that is similar to yesterday's. She r eports decreased chest pain and resolved claudication from yesterday. She has not had a natalia l movement since two days ago and was prescribed docusate-senna to assist with this. Patient reports no headache, vision changes, or trouble swallowing. She reports a short spell of dr chaudhry coughing last night but reported that she fell asleep five minutes later. She does not rep ort arthralgias but reports bilateral leg cramping. She reports mild nausea but states that her appetite has been "okay." Review of Systems Constitutional: Negative for chills, diaphoresis and fever. HENT: Negative for ear pain, hearing loss and tinnitus. Eyes: Negative for blurred vision, double vision and pain. Respiratory: Positive for cough. Negative for hemoptysis, sputum production, shortness of b reath, wheezing and stridor. Cardiovascular: Negative for chest pain, palpitations, claudication and leg swelling. Gastrointestinal: Positive for abdominal pain, constipation and nausea. Genitourinary: Negative for dysuria, flank pain and urgency. Musculoskeletal: Positive for myalgias. Muscle cramping bilateral legs. Skin: Positive for rash. Palpable purpura bilateral legs. Neurological: Negative for dizziness and sensory change. MEDICATIONS aspirin 81 mg Oral Daily clopidogrel 75 mg Oral Daily losartan 25 mg Oral Daily metoprolol succinate 50 mg Oral Daily pantoprazole 40 mg Oral QAM AC sevelamer carbonate 1,600 mg Oral TID WC PRN: acetaminophen, albumin, albuterol-ipratropium, diphenhydrAMINE, docusate-senna, hydrALAZINE , HYDROmorphone, nitroglycerin, ondansetron, ondansetron, oxyCODONE, promethazine OBJECTIVE BP 109/72 | Pulse 60 | Temp 36.6 C (97.8 F) (Oral) | Resp 16 | Ht 1.702 m (5' 7") | Wt 68.5 kg (151 lb 1.6 oz) | LMP (Within Days) Comment: 06/2017 | SpO2 97% | Breastfeed ing? No | BMI 23.67 kg/m Physical Exam Constitutional: She appears well-developed and well-nourished. No distress. HENT: Head: Normocephalic. Neck: No JVD present. Cardiovascular: Normal rate and regular rhythm. Murmur heard. Holosystolic murmur. ECHO shows tricuspid regurg and EF of 30 percent. Pulmonary/Chest: Effort normal and breath sounds normal. No stridor. No respiratory distres s. She has no wheezes. She has no rales. No tracheal deviation. Abdominal: Soft. Bowel sounds are normal. She exhibits no mass. There is tenderness. There is no rebound and no guarding. No hernia. LUQ tenderness on palpation. No hepatomegally. Lymphadenopathy: She has no cervical adenopathy. Skin: Skin is dry. She is not diaphoretic. 1500ml was removed during right side thoracentesis and 1700ml was removed during dialysis. LABORATORY DATA I have reviewed all labs and there was modest improvement in potassium, BUN, Cr, and Glucos e after dialysis. BUN 32 Cr 5.6 K 4.5 HCT 31.3 General Current weight: 68.5kg Radiology I have reviewed the ECHO report and CXR post thoracentesis. PROBLEM LIST Comorbidities: Active comorbid conditions include: - CHF - hypertension ASSESSMENT & PLAN Principal Problem: Pulmonary edema with congestive heart failure with reduced left ventricular function/ ple ural effusion- Hemodynamically stable with improvement in fluid status. S/P thoracentesis (0 11/07/18) with 1500ml removal. - Continue daily ultrafiltration with slower rate due to cramping per nephrology. - Continue optimization of HF treatment with pharmacology and discuss compliance issues wi th patient. Active Problems: Pericardial effusion without cardiac tamponade - hemodynamically stable with echo showing no current pericardial effusion. - Continue to monitor with telemetry and physical exam Anemia in ESRD (end-stage renal disease) - Hct at 31.3 and Hgb at 10.6 - Management with IV iron and EPO. As per nephrology - Monitor daily CBC Secondary hyperparathyroidism - Stable Calcium levels at 9.6 - Maintain calcium levels with vitamin D supplementation if needed Acute hypoxemic respiratory failure - Patient currently on 2L NC with saturation in high 90s - Maintain O2 levels above 89 percent via supplemental O2. Chronic combined systolic and diastolic heart failure with dilated cardiomyopathy/Non-rhe umatic tricuspid valve insufficiency/Non-rheumatic mitral regurgitation - hemodynamically s table with ECHO showing EF of 30 percent. - Continue heart failure medication regimen. - Consider increasing dose of losartan in the future. At high risk for electrolyte imbalance - K, Na, and Ca all WNL. Chloride mildly low at 96 . - Monitor electrolytes with dialysis. - Maintain telemetry ESRD on hemodialysis/hyerkalemia - 1700ml removed by dialysis today. 4.5 potassium level currently. - Daily dialysis as managed by nephrology - Daily CMP Hypertensive urgency - Continue ARB. Continue metoprolol. Volume management per nephrology via hemodialysis. Code status: FULL CODE Disposition: Inpatient Yefri Meek Medical Student 11/08/2018 13:05 Associated attestation - Darell Kowalski - 11/08/2018 5:28 PM PDTAttending: Pt is seen and examined with student. Discussed and agree with the findings and plan as do cumented in the note.Laboratory tests and radiology images have been independently reviewed and confirmed. My thoughts have been incorporated in the above-mentioned note. She is feeli ng better. Darell Kowalski MD, MD Duarte, MD Cliff - 11/07/2018 10:24 AM PDT 8112/8112-01 LOS: 1 day Dara Louise is a 23 y.o. woman followed for ESRD management. Current hospitalization is with recurrent hyperkalemia, decompensated congestive heart fail ure, recurrent pleural effusion, pericardial effusion secondary to missed dialysis and lack of adherence to dietary salt/fluid restriction.. Last outpatient dialysis was this week Monday. She missed 2 dialysis sessions on the and 29 October. She is seen on dialysis. She has been cramping and ultrafiltration has been limited. No other complications during dialysis identified. She is not tachycardic and blood pressu re has been stable. There are no other significant overnight events. PMH, PSH, Social history reviewed in chart. [...] as noted General appearance: Lying in bed in pain with cramping. Head/Neck: FROM, supple. Facial puffiness noted. Lungs: Reduced air entry bilaterally with scattered wheeze. CV: RRR, no MRGs; normal carotid upstroke and amplitude without bruits Abdomen: Soft, non-tender; no masses or HSM Extremities: No peripheral edema or digital cyanosis Skin: no rash, lesions or ulcers Psych: Anxious with pain and cramping. Neurologic: Alert, awake and oriented to person, place and time. No asterixis. Dialysis access: Left UE AVF with no evidence of malfunction/inflammation. Vital Signs: BP 125/65 | Pulse 70 | Temp 36.3 C (97.4 F) (Oral) | Resp 16 | Ht 1.702 m (5' 7") | Wt 72.6 kg (160 lb 0.9 oz) | LMP (Within Days) Comment: 06/2017 | SpO2 97% | Breastfeed ing? No | BMI 25.07 kg/m Lab Results Component Value Date NA 137 11/07/2018 K 5.5 (H) 11/07/2018 CL 99 11/07/2018 CO2 24 11/07/2018 ANIONGAP 20 11/07/2018 GLU 102 (H) 11/07/2018 BUN 66 (H) 11/07/2018 CREA 7.4 (H) 11/07/2018 LABCREA 7.2 (H) 10/19/2018 EGFR 7 (L) 11/07/2018 BUNCREARATIO 9 11/07/2018 BCR 4 10/19/2018 TP 7.0 11/07/2018 CALCIUM 9.3 11/07/2018 PHOSPHORUSST 7.3 (H) 08/21/2018 ALBUMIN 3.6 11/07/2018 MG 2.3 11/07/2018 ELP 3.4 11/07/2018 AGRATIO 1.1 11/07/2018 BILI 0.9 11/07/2018 BILITOT 0.8 10/18/2018 ALKPHOS 130 (H) 11/07/2018 ALKPEX 89 10/18/2018 AST 20 11/07/2018 ALT 40 11/07/2018 WBC 5.23 10/22/2018 HGB 12.0 10/22/2018 LABPLAT 156 10/18/2018 LDH 202 11/07/2018 No results found for: PHUR, PROTUA, BLOODU, WBCU, RBCU, LEUKOESTUA, NITRITEUA, BACTERIA, EP IS, LABCOLO, CLARITY, GLUCOSEU, BILIRUBINUA, KETONES, HYALINECASTS No results found for: ALDOST, RENIN Lab Results Component Value Date CRP 5.1 (H) 05/28/2018 HBSAB NON REACTIVE 05/28/2018 HCVAB NON REACTIVE 05/28/2018 No results found for: HBA1C, LABGLYC, CHOL, TRIG, HDL, LDLEX, LDLHDL, CHOLHDL, VLDL Lab Results Component Value Date TROPONINT 0.045 (H) 11/07/2018 TROPONINT 0.045 (H) 11/06/2018 TROPONINT 0.066 (H) 11/06/2018 Lab Results Component Value Date BNP 1,151.26 (H) 10/17/2018 BNP 1,153.92 (H) 05/27/2018 BNP 1,728.24 (H) 05/26/2018 Echocardiogram from 12 June this year showed ejection fraction of 30 to 35% with restrictiv e LV diastolic pattern, moderate mitral regurgitation, severe tricuspid regurgitation and se jaquan pulmonary hypertension. Relevant problems: 1. Hypervolemia with congestive heart failure 2. End-stage renal disease on hemodialysis 3. Nonadherence to dialysis prescription 4. Recurrent right pleural effusion 5. Pericardial effusion 6. Anemia, chronic renal failure 7. Hyperkalemia 8. Increased anion gap metabolic acidosis Assessment She is hemodynamically stable with no evidence of fever/tachycardia/bradycardia/severe hypo tension or severe hypotension/hypoxia. With lack of dialysis, recurrent pleural effusion and pericardial effusion plan was to dial yze/perform ultrafiltration every day. However ultrafiltration has been limited today with cramping. She remains hypervolemic and has recurrent hyperkalemia/metabolic acidosis. Acute KS has been ruled out. Recommendations: Plan for ultrafiltration tomorrow albeit at a lower ultrafiltration rate. Continue current medications including ARB/diuretic as she is nonoliguric. Strict 2 g sodium, 1 g potassium, 1 g phosphorus, 1 g/kg protein diet. Please dose all medications for an eGFR of less than 10 ml/min/1.73 m2. NSAIDS/SUAREZ 2 inhibitors should be avoided. Aluminum/magnesium containing antacids and magnesium/phosphate containing enemas should be avoided. Fluid should be restricted to less than 1.5 L in a 24 hr period. Strict I/O should be done. Plan of care was discussed with Dr. Dex Duarte MD 11/07/2018 She was seen earlier in the day and charting was completed later after rounds. Portions of my previous notes have been carried over for continuity of chart review/care. Dictation software, [employer], was used which may contain error for similar sounding words. Pe rsonal communication is requested for any clarification. Also please do not construe any information/orders from unsigned notes. Recommendations are solely recommendations and not orders (unless explicitly stated so) and primary ordering authority is with primary team. Prognosis is guarded in view of multiple comorbid illnesses and ESRD/systolic CHF/hypervole rhina/non adherence to dietary salt/fluid restriction/dialysis prescription including but not limited to . aspirin 81 mg Oral Daily clopidogrel 75 mg Oral Daily furosemide 40 mg Intravenous BID (8 and 16) metoprolol succinate 50 mg Oral Daily pantoprazole 40 mg Oral QAM AC sevelamer carbonate 1,600 mg Oral TID WC valsartan 40 mg Oral Daily Yefri Andres, Medical Student - 11/07/2018 7:25 AM PDTFormatting of this note might be different from the [facility] Inpatient Progress Note Pt: Dara Louise AGE/SEX: 23 y.o. ROOM: 8112/8112-01 : 1995 PCP: Jonathan Alonso MD PATIENT SUMMARY Dara Louise is a 23 y.o. female with history of HSP, ESRD on hemodialysis, dilated cardiomyopathy, ejection fraction of 30-35 percent, and severe TR and pulmonary hypertensio n who is on day 1 of admission for pulmonary edema with congestive heart failure with reduce d left ventricular EF who presented with dyspnea and substernal chest pain. Patient reported she missed a dialysis session on Monday and didn't get dialysis done until this past Monday . In the event of dialysis, the patient reported continued SOB and dyspnea. The patient was seen at [facility] ER and then transferred to our internal medicine service. SUBJECTIVE Patient reports last night that she woke up with substernal chest pain with jaw claudicatio n at 0400. She was given .5mg dilaudid IV with no improvement of pain. Patient reports that she is experiencing constipation and her last bowel movement was yesterday morning. She curr ently reports a 7/10 generalized pain mostly in the chest and abdomen areas. She reports dex sea last night and requests ondansetron and/or promethazine IV instead of oral ondansetron. She reports that she is not compliant with her medications. Review of Systems Constitutional: Negative for chills, diaphoresis, fever and weight loss. Respiratory: Negative for cough, hemoptysis, shortness of breath and wheezing. Cardiovascular: Positive for chest pain and claudication. Negative for palpitations. Gastrointestinal: Positive for abdominal pain, constipation and nausea. Negative for heartb urn and vomiting. Nausea at night Musculoskeletal: Negative for joint pain. Neurological: Negative for loss of consciousness. MEDICATIONS aspirin 81 mg Oral Daily clopidogrel 75 mg Oral Daily furosemide 40 mg Intravenous BID (8 and 16) metoprolol succinate 50 mg Oral Daily pantoprazole 40 mg Oral QAM AC sevelamer carbonate 1,600 mg Oral TID WC valsartan 40 mg Oral Daily PRN: acetaminophen, albuterol-ipratropium, diphenhydrAMINE, hydrALAZINE, nitroglycerin, ondanset phuc, oxyCODONE, promethazine OBJECTIVE BP 130/82 | Pulse 80 | Temp 36.3 C (97.4 F) (Oral) | Resp 12 | Ht 1.702 m (5' 7") | Wt 70.4 kg (155 lb 3.2 oz) | LMP (Within Days) Comment: 06/2017 | SpO2 96% | Breastfeed ing? No | BMI 24.31 kg/m Physical Exam Constitutional: She is oriented to person, place, and time. She appears well-nourished. No distress. HENT: Head: Normocephalic. Neck: No JVD present. No tracheal deviation present. Cardiovascular: Normal rate and regular rhythm. Exam reveals friction rub. Pulses: Radial pulses are 2+ on the right side, and 0 on the left side. Inverted T waves on telemetry. No carotid bruit. Could not palpate a left radial pulse whil e dialysis fistula was accessed. Pulmonary/Chest: Effort normal and breath sounds normal. 2L NC 02 sat maintained at 97-98 percent. On room air patient will drop to low 90s within o ne to two minutes. Abdominal: Soft. Bowel sounds are normal. She exhibits no mass. Genitourinary: Genitourinary Comments: Currently on dialysis Neurological: She is alert and oriented to person, place, and time. Skin: Skin is warm and dry. She is not diaphoretic. Mild palpable purpura bilateral lower extremities below the knee. Psychiatric: She has a normal mood and affect. Mildly anxious LABORATORY DATA Abnormal Labs K+ 5.5 BUN 66 Cr 7.1 Glucose 102 General Admit weight: 69.6kg Current weight: 68.4kg Daily net (Past 24): -833 Radiology No results found for this or any previous visit (from the past 360 hour(s)). PROBLEM LIST Hyperkalemia ESRD with dialysis need Nonadherence to heart failure medications Anemia d/t chronic renal disease Pulmonary edema Comorbidities: <NWCOMORBIDITIES> ASSESSMENT & PLAN Principal Problem: Pulmonary edema with congestive heart failure with reduced left ventricular function - EF on last ECHO showed 30-35 percent. Patient is improving on dialysis. - Perform dialysis for fluid removal. - Thoracentesis - Reevaluate heart function by performing ECHO - Continuous telemetry to monitor for arrhythmias - Continuous O2 administration via NC and perform trial room air saturation after thoracen tesis and dialysis treatments. Active Problems: Anemia in ESRD (end-stage renal disease) - Management with IV iron and Epogen as per nephrology. 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 Switch valsartan to losartan. - Get ECHO to determine function SOB (shortness of breath) - Achieve euvolemia status via dialysis and administer supplemental oxygen as needed via N C ESRD on hemodialysis - Continue plan of dialysis with nephrology consulted. Renal diet with fluid and salt rest rictions - Fluid should be restricted to less than 1.5 L in a 24 hr period. - Strict I/O should be done. Hypertensive urgency - HTN urgency. Continue ARB. Continue metoprolol. Will order PRN IV hydralazine. Volum e management as per nephrology/hemodialysis -which should help with BP control Recommendations per Nephrology Plan for ultrafiltration tomorrow albeit at a lower ultrafiltration rate. Continue current medications including ARB/diuretic as she is nonoliguric. Strict 2 g sodium, 1 g potassium, 1 g phosphorus, 1 g/kg protein diet. Please dose all medications for an eGFR of less than 10 ml/min/1.73 m2. NSAIDS/SUAREZ 2 inhibitors should be avoided. Aluminum/magnesium containing antacids and magnesium/phosphate containing enemas should be avoided. Some of this note was copied from other notes for continuity of care. Code status: FULL CODE Disposition: Inpatient status DVT prophylaxis: SCDs as needed and subcu heparin 5000 every 12 hours. Yefri Meek, Medical Student 11/07/2018 7:25 Associated attestation - Darell Kowalski - 11/07/2018 2:55 PM PDTAttending: Pt is seen and examined with the Student. Discussed and agree with the student's findings a nd plan as documented in the note.Laboratory tests and radiology images have been independe ntly reviewed and confirmed. My thoughts have been incorporated in the above-mentioned note. Plan is to do the daily hemodialysis at least for 5 days. Plan was discussed with nephrol ogist. Shortness of breath has improved as well. Patient will also require thoracentesis. anxiolytic and talking to endoscopically Darell Kowalski MD, MD documented in this encounter H&P Notes Johnathan Brooks MD - 11/06/2018 4:19 PM PDTFormatting of this note might be different f rom the original. [facility] Service: Hospitalist Admission History & Physical Pt: Dara Louise AGE/SEX: 23 y.o. female ROOM: 8112/8112-01 PCP: Jonathan Alonso MD : 1995 TODAY'S DATE: 11/06/2018 Date of Admission: 11/06/2018 Chief Complaint: History of Present Illness: The patient is a 23 y.o. female with significant past medical history of Henoch-Schonlein p urpura, end-stage renal disease on hemodialysis (Monday for past 6 years; n ephrologist is Dr. Anguiano), dilated cardiomyopathy, combined congestive and diastolic heart f ailure with ejection fraction of 30 to 35% % and grade 3 diastolic dysfunction, severe TR se jaquan pulmonary hypertension, Per echocardiogram from 06/12/2018), on antiplatelet therapy for AV fistula clots, recent admission from 10/17/2018 to 10/22/2018 due to fluid overload (r equiring management of total body fluid with sequential daily dialysis). Patient reportedly has some missed dialysis session this past Monday and did not have it on Monday or Monday. She did attend dialysis this Monday, however despite usual fluid remov al patient continued to be complaining of dyspnea. Patient states that she started to exper ience dyspnea this past Monday. She observed positional worsening of shortness of breath pa rticularly when reclining. Dyspnea would improve with sitting up. In addition she also dev eloped substernal chest discomfort this past Monday which occurred mostly at rest but was al so affected positional changes (i.e. worse in supine position and better in sitting position ). She had brief relief of substernal chest discomfort during dialysis this past Monday, bu t it reoccurred and continued after dialysis. Because of continuation of her symptoms she d ecided to be evaluated at local emergency room at [facility]. In the ER patient was evaluated by Dr. Lauren ; initial vitals on admission BP 158/118, HR 104, O2 sats as low as 88% on room air,; record does not include presence of fever on vital s recorded in paper chart) . As part of her symptomology work-up, patient underwent twelve-lead EKG (it was verbally rep orted to me by Dr. Lauren , that patient's EKG had no ischemic changes on that study with o nly flattened ST segments in lead II, V5, V6 and aVL; unfortunately the copy of the EKG was not transferred with the patient's paper documentation from [facility] ER). Initial labs: WBC 6.5, hemoglobin 11.0, hematocrit 33.4, platelets 188, sodium 143, potassi um 4.4, chloride 101, CO2 24, anion gap 22.4, calcium 10.0, protein 7.0, albumin 4.1, total bilirubin 1.3, AST 28, ALT 33, alk phos 127, troponin I was 0.192, beta hCG was negative. CT pulmonary angiogram was subsequently performed on 11/06/2018 at 9:55 AM which showed no ev idence of PE, large right pleural effusion with right lung being significantly atelectatic w ith only small portion of each lobar remaining irrigated. Also does loculated pericardial e ffusion measuring approximately 14 x 75 x 80 mm and is in superior mediastinum anterior to t he ascending aorta and main pulmonary artery. The right lung and the entire left lung show hazy density suggesting of edema. PMHx: Past Medical History: Diagnosis Date Asthma Clotted dialysis access (HCC) 2014 Congestive heart failure (HCC) ESRD (end stage renal disease) (HCC) HSP (Henoch-Schonlein purpura) nephritis (HCC) 1987 Hypertension PSHx: Past Surgical History: Procedure Laterality Date ABDOMEN SURGERY AV FISTULA REPAIR 02/24/2014 LEFT Radical Cephalic Fistula Creation; Laterality: Left; Surgeon: Blake Chavarria MD ; Location: [facility] MAIN OR AV FISTULA REPAIR Left 03/07/2014 Procedure: AV FISTULA - GRAFT REPAIR/REVISION; Surgeon: Rik Simon MD; Location: [facility] OR; Service: Vascular; Laterality: Left; biopsy of kidney age 10 DIALYSIS FISTULA CREATION 04/08/2014 Procedure: DIALYSIS CATHETER - INSERTION; Surgeon: Rik Simon MD; Location: [facility] OR ; Service: Vascular; Laterality: N/A; tunneled catheter.br hemodialysis catheter KIDNEY BIOPSY Left 2003 OTHER SURGICAL HISTORY LAPAROSCOPIC PERITONEAL DIALYSIS CATHETER INSERTION - x2 OTHER SURGICAL HISTORY Right 07/2013 LAPAROSCOPIC PERITONEAL DIALYSIS CATHETER INSERTION - current dialysis access MWF dialysis OTHER SURGICAL HISTORY Left 06/24/2014 SUPERFICIALIZATION OF AV FISTULA - Procedure: AV FISTULA - SUPERFICIALIZATION; Surgeon: Emanuel Simon MD; Location: [facility] MAIN OR; Service: Vascular; Laterality: Left; OTHER SURGICAL HISTORY Left 04/08/2014 AV FISTULA PLACEMENT - Procedure: AV FISTULA; Surgeon: Rik Simon MD; Location: [facility]; Service: Vascular; Laterality: Left; cephalic OTHER SURGICAL HISTORY Left 03/07/2014 DECLOT GRAFT - Procedure: GRAFT - DECLOT; Surgeon: Rik Simon MD; Location: [facility] MA[facility] OR ; Service: Vascular; Laterality: Left; peritoneal catheter Prior To admission Meds: Prior to Admission medications Medication Sig Start Date End Date Taking? Authorizing Provider albuterol 90 mcg/puff inhaler Inhale 2 puffs into the lungs every 6 hours as needed for Whe ezing. 09/19/16 Yes Daniela Ibarra MD albuterol 90 mcg/puff inhaler Inhale 2 puffs into the lungs every 6 hours as needed for Whe ezing. 10/22/18 Gerber Pearson MD albuterol-ipratropium 2.5-0.5 mg/3 mL SOLN Take 3 mLs by nebulization. Yes Historical Pro videMD aleyda clopidogrel (PLAVIX) 75 mg tablet Take 1 tablet by mouth Daily. 10/23/18 Yes Gerber Cleary i, MD doxercalciferol (HECTOROL) 2 mcg/mL injection Inject 0.5 mLs into the vein Three times a we ek. Per dialysis clinic protocol Patient taking differently: Inject 1.5 mcg into the vein Three times a week. Per dialysis c linic protocol 02/26/18 Jorje Camp, epoetin jenna (EPOGEN) 20,000 units/mL injection Inject 0.4 mLs (8,000 Units total) into the skin every 7 days. 07/03/13 Historical Provider, epoetin jenna (EPOGEN,PROCRIT) 3,000 units/mL injection Inject 3,000 Units under the skin Th ree times a week. Historical Provider, etelcalcetide (PARSABIV) 2.5 mg/0.5 mL injection Inject 2.5 mg into the vein Three times a week. Historical Provider, hydrOXYzine (ATARAX) 50 MG tablet Take 1 tablet by mouth nightly as needed for Itching. Jorje Camp DO iron sucrose (VENOFER) 20 mg/mL injection Inject 100 mg into the vein (IV) once. Per dialys is unit Historical Provider, iron sucrose (VENOFER) 20 mg/mL injection Inject 2.5 mLs into the vein Once a week. 09/12/14 Daniela Ibarra MD metoprolol succinate (TOPROL-XL) 50 mg 24 hr tablet Take 1 tablet by mouth nightly. 10/22/18 Gerber Pearson MD metoprolol succinate (TOPROL-XL) 50 mg 24 hr tablet Take 1 tablet by mouth daily. 07/24/18 Historical Provider, norethindrone (MICRONOR) 0.35 MG tablet Take 1 tablet by mouth Daily. 09/19/16 Daniela Ibarra MD ondansetron (ZOFRAN) 4 mg tablet Take 4 mg by mouth 3 (three) times daily as needed for Dex sea. Historical Provider, pantoprazole (PROTONIX) 40 mg tablet Take 1 tablet by mouth every morning (before breakfast ). 10/23/18 Gerber Pearson MD pantoprazole (PROTONIX) 40 mg tablet Take 40 mg by mouth every morning before breakfast. Historical Provider, 27-0.8 mg multivitamin tablet Take 1 tablet by mouth Daily. 09/19/16 Daniela parra MD promethazine (PHENERGAN) 25 mg tablet Take 1 tablet by mouth every 6 hours as needed for Na usea or Vomiting (non responsive to zofran). 10/22/18 Gerber Pearson MD promethazine (PHENERGAN) 25 mg tablet Take 1 tablet by mouth every 6 (six) hours as needed for Nausea or Vomiting (non-resposive to zofran). 07/24/18 Historical Provider, raNITIdine (ZANTAC) 300 MG capsule Take 1 capsule by mouth every evening. 04/10/17 Jorje Camp DO sevelamer carbonate (RENVELA) 800 mg tablet Take 3 tablets by mouth 3 times daily (with [facility] ls). 10/22/18 Gerber Pearson MD sevelamer carbonate (RENVELA) 800 mg tablet Take 2 tablets by mouth 3 (three) times daily w ith meals. 06/01/18 06/01/19 Historical Provider, valsartan (DIOVAN) 40 mg tablet Take 1 tablet by mouth daily. 06/14/18 06/14/19 Rubén zamudio MD valsartan (DIOVAN) 80 mg tablet Take 1 tablet by mouth Daily. 10/23/18 Gerber Pearson MD Medications scheduled: aspirin 81 mg Oral Daily [START ON 11/07/2018] clopidogrel 75 mg Oral Daily furosemide 40 mg Intravenous BID (8 and 16) [START ON 11/07/2018] metoprolol succinate 50 mg Oral Daily pantoprazole 40 mg Oral QAM AC sevelamer carbonate 1,600 mg Oral TID WC valsartan 40 mg Oral Daily Allergies: Allergies Allergen Reactions Adhesive & Tape Rash Certain tapes Fentanyl Itching Iodinated Diagnostic Agents Itching Pt c/o face itching during fistulagram Methylphenidate Other (See Comments) Patient says skin was crawling Morphine Itching and Rash Reglan [Metoclopramide] Itching Lisinopril cough Family Hx: Family History Problem Relation Age of Onset High blood pressure Father Heart disease Mother Seizures Mother Hypertension Father Alcohol abuse Father Social Hx: Social History Tobacco Use Smoking status: Former Smoker Packs/day: 0.50 Smokeless tobacco: Never Used Substance Use Topics Alcohol use: No Review of Symptoms: Constitutional: Negative for fever, chills, diaphoresis, activity change, appetite change, fatigue and unexpected weight change. HENT: Negative for hearing loss, ear pain, nosebleeds, congestion, facial swelling, rhinorr hea, neck pain, neck stiffness, dental problem, tinnitus and ear discharge. Eyes: Negative for photophobia, pain, discharge, redness, itching and visual disturbance. Respiratory: Negative for apnea, reports chronic cough, chest tightness, +ve for shortness of breath particularly when reclining/improves with sitting up Cardiovascular: Positive for chest pain (nearly constant since this past 11/04/2018 b ut gets worse with supine position), positive for palpitations and leg swelling. Gastrointestinal: Negative for nausea, vomiting, abdominal pain, diarrhea, constipation, bl ood in stool, abdominal distention, anal bleeding and rectal pain. Genitourinary: Negative for dysuria, frequency, hematuria, flank pain, difficulty urinating and dyspareunia. Musculoskeletal: Negative for back pain, joint swelling, arthralgias and gait problem. _ Skin: Negative for color change, pallor, rash and wound. Neurological: Negative for dizziness, tremors, seizures, syncope, weakness, light-headednes s, numbness and headaches. Hematological: Negative for adenopathy. Does not bruise/bleed easily. Psychiatric/Behavioral: Negative for suicidal ideas, hallucinations, behavioral problems, c onfusion and agitation. Objective: Vital Signs: BP (!) 156/104 | Pulse 80 | Temp 36.3 C (97.4 F) (Oral) | Resp 18 | Ht 1.702 m (5' 7") | Wt 69.5 kg (153 lb 4.8 oz) | LMP (Within Days) Comment: 06/2017 | SpO2 97% | Breas tfeeding? No | BMI 24.01 kg/m No intake/output data recorded. Physical Exam: Constitutional: Oriented to person, place, and time. [...] S1 and S2, and intact distal pulses. Possible friction rub. murmur heard. Pulmonary/Chest: Effort normal Decreased breath sounds of the right lung up to mid lung region. Minimal crackles over rig ht upper lung. No wheezes. Abdominal: Soft. Bowel sounds are normal. exhibits no distension and no mass. There is no t enderness. There is no rebound and no guarding. Extremities/Musculoskeletal: Normal range of motion.exhibits no tenderness. exhibits no ed ton. Left upper extremity AV fistula with good bruit Neurological: Alert and oriented to person, place, and time. Has normal reflexes. display s normal reflexes. No cranial nerve deficit. Exhibits normal muscle tone. Coordination norm al. Skin: Skin is warm and dry. No rash noted. No erythema. No pallor. Psychiatric: Has a normal mood and affect. Behavior is normal. Judgment normal. Data: CBC: Lab Results Component Value Date WBC 5.23 10/22/2018 RBC 3.29 (L) 10/22/2018 RBC 3.24 (L) 10/18/2018 HGB 12.0 10/22/2018 HCT 35.4 10/22/2018 MCV 107.5 (H) 10/22/2018 MCH 36.4 (H) 10/22/2018 MCHC 33.9 10/22/2018 PLT 156 10/22/2018 MPV 10.4 10/22/2018 CMP: Lab Results Component Value Date NA 140 10/22/2018 K 4.1 10/22/2018 CL 102 10/22/2018 CO2 28 10/22/2018 ANIONGAP 14 10/22/2018 GLUF 84 10/19/2018 BUN 28 (H) 10/22/2018 BCR 4 10/19/2018 GLOB 3.7 10/18/2018 AGRATIO 0.9 (L) 10/18/2018 BILITOT 0.8 10/18/2018 AST 28 10/18/2018 ALT 36 10/18/2018 EGFR 7 (L) 10/22/2018 IMAGING: @RISRESULT@ EK EKG on at 1558 hrs.: Normal sinus rhythm with possible left atrial enlargem ent, T wave inversion in leads V5 and V6 otherwise no acute ST or T wave changes. Problem List: Principal Problem: Pulmonary edema with congestive heart failure with reduced left ventricular function Active Problems: Anemia in ESRD (end-stage renal disease) Acute hypoxemic respiratory failure Chronic combined systolic and diastolic heart failure Dilated cardiomyopathy Moderate to severe pulmonary hypertension Pleural effusion, not elsewhere classified SOB (shortness of breath) ESRD on hemodialysis Hypertensive urgency Assessment and Plan: 23-year-old female with history of combined congestive and diastolic heart failure (ejectio n fraction 30 to 35%/severe TR/severe pulmonary hypertension; per echo 06/2018), end-stage re nal disease on hemodialysis who presents as a transfer from outside facility/[facility] ER with the followin. Dyspnea/acute hypoxic respiratory failure most likely secondary to pulmonary fluid over load as well as a large right-sided pleural effusion, as well as possibly significant perica rdial effusion. -Consulted nephrology for needed more frequent dialysis treatments as patient has missed pr evious hemodialysis sessions/ -Ultrasound-guided right sided thoracentesis for fluid removal (studies for fluid analysis ordered). Might need opinion from pulmonology for further recommendations (usually sees Dr. Benjamin ALMEIDA). -Reevaluate with echocardiogram to reevaluate the size and hemodynamic effect of pericardia l effusion noted on CT chest angiogram on 11/06/2018. -Telemetry and O2 sat monitoring. Judicious O2 supplementation to maintain sats 89 to 95%. 2. End-stage renal disease on hemodialysis. -Consulted nephrology/Dr. Felicia ALMEIDA. -Renal diet with 1200 mL fluid restriction/sodium restriction. 3. Chest pain in context of potential uremic pericardial effusion (relieved by sitting up and worsened by supine position). -Possible pericardial rub on auscultation. -Check echocardiogram as noted above. Treatment for this is more frequent hemodialysis, an d not omitting scheduled dialysis sessions. -Serial troponins. Consult cardiology if troponins trend upwards. -EKG shows negative T waves in the lateral leads potentially indicating strain. Patient swanson d mild troponin I elevation which might be baseline for patient with end-stage renal disease on hemodialysis. 4. Anemia of chronic kidney disease/end-stage renal disease. Management with IV iron and Epogen as per nephrology. 5. HTN urgency. Continue ARB. Continue metoprolol. Will order PRN IV hydralazine. Volum e management as per nephrology/hemodialysis -which should help with BP control. 6. DVT prophylaxis SCDs and subcu heparin 5000 every 12 hours. 7. I asked field staff manager to complete home medication reconciliation. Patient's old records and labs were reviewed in detail and summarized. Code Status: Prior Primary Care Physician: MD Johnathan Thomas MD 11/06/2018 17:16 documented in this encounter Procedure Notes Billie Gupta MD - 11/09/2018 9:34 AM PDTAssociated Order(s): HEMODIALYSIS [facility] Hemo-Dialysis Procedure note Pt is seen on Dialysis. Indication for Dialysis: ESRD for Clearance and UF Review of Systems: On dialysis, the patient denies nausea, vomiting,chest pain, palpitation s, headaches . Laboratory Findings Lab Results Component Value Date BUN 46 (H) 11/09/2018 CREA 7.5 (H) 11/09/2018 EGFR 7 (L) 11/09/2018 NA 140 11/09/2018 K 4.3 11/09/2018 CL 99 11/09/2018 CO2 33 (H) 11/09/2018 CALCIUM 9.0 11/09/2018 PHOS 7.6 (H) 11/09/2018 MG 2.3 11/07/2018 ALBUMIN 3.3 (L) 11/09/2018 WBC 4.25 11/09/2018 HGB 9.4 (L) 11/09/2018 PLT 132 (L) 11/09/2018 Lab Results Component Value Date COLORUA YELLOW 11/07/2018 Component Value Date/Time CREA 7.5 (H) 11/09/2018 0414 CREA 5.6 (H) 11/08/2018 0447 CREA 7.4 (H) 11/07/2018 0403 CREA 7.3 (H) 10/22/2018 0533 CREA 5.0 (H) 10/21/2018 0548 CREA 5.83 (H) 10/20/2018 0641 CREA 9.21 (HH) 02/24/2014 0659 LABCREA 7.2 (H) 10/19/2018 0620 LABCREA 9.3 (H) 10/18/2018 0544 LABCREA 14.52 (H) 10/17/2018 0349 LABCREA 5.62 (H) 08/22/2018 0702 LABCREA 9.6 (H) 08/21/2018 0502 LABCREA 8.68 (H) 08/20/2018 1743 LABCREA 5.48 (H) 07/24/2018 0604 LABCREA 8.3 (H) 07/23/2018 0532 LABCREA 4.6 (H) 07/21/2018 0600 LABCREA 5.65 (H) 07/20/2018 0625 LABCREA 7.7 (H) 07/19/2018 0610 LABCREA 7.2 (H) 06/01/2018 0443 Physical Exam Blood pressure 126/76, pulse 65, temperature 36.4 C (97.6 F), temperature source Oral, resp. rate 16, height 1.702 m (5' 7"), weight 69.6 kg (153 lb 7 oz), SpO2 100 %, not current ly . 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 Rehabilitation Program Coordinator 240 Constitutional: pt appears without distress. Cardiovascular: Normal rate. Exam reveals no gallop and no friction rub. No murmur heard. Pulmonary/Chest: Effort normal. No stridor. No respiratory distress. Pt has no wheezes, no rales . Musculoskeletal: pt exhibits no edema in lower extremities . Access; pt has left AVF. It has good thrill and bruit A/P ESRD requiring HD: Hemodynamically stable on HD; continue per submitted dialysis orders. N o dialysis-related complications identified during dialysis treatment today. Modifications to orders: none Billie Gupta MD 11/09/2018 documented in this encounter Consult Notes Cliff Duarte MD - 11/06/2018 4:24 PM PDTAssociated Order(s): PROVIDER TO PROVIDER CONSU LT [id number] Hospital Day: LOS: 0 days CHIEF COMPLAINT: I had chest pain HISTORY OF PRESENT ILLNESS: Dara Louise is a 23 y.o. woman with oliguric ESRD who follows up with Dr. Jonathan Alonso MD as primary care provider. 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 She is dialyzed MWF at [place] using left UE AVF. Primary stopper setter is Dr. Anguiano. She is historically non adherent to dialysis/dietary fluid/K/Po4 restriction. She also had combined systolic/diastolic CHF with recent hospitalization at [facility] last month for decompensated CHF. She missed 2 dialysis sessions last week and began to have chest pain this Monday. She described pain as central chest pain (not worsened by pressure) and worsened by lying d own without any cough/fever/nausea/vomiting. She has had progressive shortness of breath. She presented to ED after full dialysis on Monday. In ED she was markedly hypertensive/tach ycardic/hypoxic. EKG per verbal report did not show any low voltage changes. She had normal WBC/mild anemia/normal K/IAG metabolic acidosis. Troponin was minimally elevated. CTA was - for PE but showed large right pleural effusion and small pericardial effusion with congestiv e changes. She indicated she did not cook and would mostly eat at her friend's place (eats ham/sausage ). Nephrology consultation was requested by Dr. Brooks for evaluation and management of ESRD A ssociated with: fluid electrolyte acid base imbalances including pulmonary edema/hypervolem ia/pericardial effusion. Records from [facility] reviewed in [facility]. Last outpatient HD was Monday. PMH, PSH, Social history reviewed in chart. [...] noted General appearance: Sitting up in bed comfortably without shortness of breath at rest. Able to carry on a conversation. However did have chest pain on lying down. Head/Neck: FROM, supple. Facial puffiness noted. Lungs: Reduced air entry bilaterally with scattered wheeze (right more than left). Dullness to percussion right infrascapular area. CV: RRR, no MRGs; normal carotid upstroke and amplitude without bruits Abdomen: Soft, non-tender; no masses or HSM [...] 6 hours as needed for Whe ezing. 09/19/16 Yes Daniela Ibarra MD albuterol-ipratropium 2.5-0.5 mg/3 mL SOLN Take 3 mLs by nebulization. Yes Historical Pro MD claus clopidogrel (PLAVIX) 75 mg tablet Take 1 tablet by mouth Daily. 10/23/18 Yes Gerber Cleary i, MD doxercalciferol (HECTOROL) 2 mcg/mL injection Inject 0.5 mLs into the vein Three times a we ek. Per dialysis clinic protocol Patient taking differently: Inject 1.5 mcg into the vein Three times a week. Per dialysis c linic protocol 02/26/18 Jorje Camp, epoetin jenna (EPOGEN) 20,000 units/mL injection Inject 0.4 mLs (8,000 Units total) into the skin every 7 days. 07/03/13 Historical Provider, epoetin jenna (EPOGEN,PROCRIT) 3,000 units/mL injection Inject 3,000 Units under the skin Th ree times a week. Historical Provider, etelcalcetide (PARSABIV) 2.5 mg/0.5 mL injection Inject 2.5 mg into the vein Three times a week. Historical Provider, hydrOXYzine (ATARAX) 50 MG tablet Take 1 tablet by mouth nightly as needed for Itching. Jorje Camp DO iron sucrose (VENOFER) 20 mg/mL injection Inject 2.5 mLs into the vein Once a week. 09/12/14 Daniela Ibarra MD metoprolol succinate (TOPROL-XL) 50 mg 24 hr tablet Take 1 tablet by mouth daily. 07/24/18 Historical Provider, norethindrone (MICRONOR) 0.35 MG tablet Take 1 tablet by mouth Daily. 09/19/16 Daniela Ibarra MD ondansetron (ZOFRAN) 4 mg tablet Take 4 mg by mouth 3 (three) times daily as needed for Dex sea. Historical Provider, pantoprazole (PROTONIX) 40 mg tablet Take 40 mg by mouth every morning before breakfast. Historical Provider, 27-0.8 mg multivitamin tablet Take 1 tablet by mouth Daily. 09/19/16 Daniela parra MD promethazine (PHENERGAN) 25 mg tablet Take 1 tablet by mouth every 6 (six) hours as needed for Nausea or Vomiting (non-resposive to zofran). 07/24/18 Historical Provider, raNITIdine (ZANTAC) 300 MG capsule Take 1 capsule by mouth every evening. 04/10/17 Jorje Camp DO sevelamer carbonate (RENVELA) 800 mg tablet Take 2 tablets by mouth 3 (three) times daily w ith meals. 06/01/18 06/01/19 Historical Provider, valsartan (DIOVAN) 40 mg tablet Take 1 tablet by mouth daily. 06/14/18 06/14/19 Rubén zamudio MD Vital Signs: BP (!) 159/105 | Pulse 94 | Temp 36.3 C (97.4 F) (Oral) | Resp 17 | Ht 1.702 m (5' 7") | Wt 69.5 kg (153 lb 4.8 oz) | LMP (Within Days) Comment: 06/2017 | SpO2 97% | Breas tfeeding? No | BMI 24.01 kg/m Data evaluation: Lab Results Component Value Date BUN 28 (H) 10/22/2018 EGFR 7 (L) 10/22/2018 NA 140 10/22/2018 K 4.1 10/22/2018 CL 102 10/22/2018 CO2 28 10/22/2018 MG 2.4 10/18/2018 HGB 12.0 10/22/2018 Lab Results Component Value Date ANIONGAP 14 10/22/2018 No results found for: TROPONINT Lab Results Component Value Date BNP 1,151.26 (H) 10/17/2018 BNP 1,153.92 (H) 05/27/2018 BNP 1,728.24 (H) 05/26/2018 Echocardiogram from 12 June this year showed ejection fraction of 30 to 35% with restrictiv e LV diastolic pattern, moderate mitral regurgitation, severe tricuspid regurgitation and se jaquan pulmonary hypertension. Assessment and Recommendations: 1. Hypervolemia with congestive heart failure 2. End-stage renal disease on hemodialysis 3. Nonadherence to dialysis prescription 4. Recurrent right pleural effusion 5. Pericardial effusion 6. Anemia, chronic renal failure 7. Increased anion gap metabolic acidosis Dara Louise is a 23 y.o. woman with oliguric ESRD as per PMH who is admitted with concern with pericarditis/pericardial effusion/recurrent right pleural effusion/pulmonary ed ton/recurrent hypoxic respiratory failure with non adherence to dialysis prescription. There is no urgent indication for HD today. ESRD is severe/established/stable. Access is working well. Plan To Dialyze tomorrow and then daily with HD/UF with goal of reduction of EDW. Plan for thoracentesis. I discussed with her the concept of ESRD/missed dialysis/hypervolemia/pericarditis and inte raction of BP/volume status/medications in preserving homeostasis with ESRD. She should [...] hr period. Strict I/O should be done. Daily CMP should be done (including Mg, PO4). Plan of care was discussed with Dr. Brooks. I thank Dr Brooks for giving me the opportunity to take part in her care with multiple comp mellissa medical problems. Do not hesitate to contact me if you have any questions. Cliff Duarte MD 11/06/2018 She was seen earlier in the day and charting was completed later after rounds. Dictation software, [employer], was used which may contain error for [...] including but not limi wilmer to . aspirin 81 mg Oral Daily furosemide 40 mg Intravenous BID (8 and 16) [START ON 11/07/2018] metoprolol succinate 12.5 mg Oral Daily documented in this enc ounter Miscellaneous Notes Plan of Care - Jae Vargas RN - 11/08/2018 11:43 PM PDT Problem: Adult Inpatient Plan of Care Goal: Plan of Care Review Outcome: Ongoing, progressing Goal: Absence of Hospital-Acquired Illness or Injury Outcome: Ongoing, progressing Bed in low position, call light within reach Goal: Readiness for Transition of Care Outcome: Ongoing, progressing lan of Care - oJycelyn Alfaro RN - 11/08/2018 6:05 PM PDT Problem: Adult Inpatient Plan of Care Goal: Plan of Care Review Outcome: Ongoing, progressing Flowsheets (Taken 11/08/2018 1804) Plan of Care Reviewed With: patient Goal: Optimal Comfort and Wellbeing Outcome: Ongoing, progressing Intervention: Provide Person-Centered Care Flowsheets (Taken 11/08/2018 1804) Trust Relationship/Rapport: care explained;choices provided;thoughts/feelings acknowledged; emotional support provided;empathic listening provided;questions answered;questions encourag ed;reassurance provided Problem: Fall Injury Risk Goal: Absence of Fall and Fall-Related Injury Outcome: Ongoing, progressing Intervention: Identify and Manage Contributors to Fall Injury Risk Flowsheets (Taken 11/08/2018 1804) Self-Care Promotion: independence encouraged;safe use of adaptive equipment encouraged Pt's vitals have been stable. Pain has been managed. No acute changes during shift. End of shift chart check complete. P DTPlan of Dominique Castaneda RN - 11/08/2018 5:30 AM PDTNo blood or hospita l-applied restraints. All protocols followed. All med parameters checked. All orders release d. Chart check done. Pt slept most of the night. Medicated for pain PRN w/ good result. VSS, afebrile. No acute issues. lan of Dominique Castaneda RN - 11/07/2018 11:06 PM PDT Problem: Fall Injury Risk Goal: Absence of Fall and Fall-Related Injury Outcome: Ongoing, progressing Pt stable on feet. Amb in rm indepElectronically signed by Dominique Millan RN a t 11/07/2018 11:06 PM PDTPlan of Esme Souza RN - 11/07/2018 4:47 PM PDTPatie nt alert and oriented x4, tearful at times earlier in shift with complaints of chest pain 7- 8/10. Oxycodone 5mg was given x2 today and Dilaudid 1mg IV x1. Patient tolerated thoracente sis well with 1.5L serous fluid removed. Pleural fluid sent to lab per previously ordered la b tests. Patient reported she "felt better" after thoracentesis and denies pain at this time . Patient medicated for constipation. No bm today. Patient has not had any urine output tod ay. She reported she only voids 1-2 times in 24 hr period and had hemodialysis this morning with 1700 ml fluid removed. Vital signs stable. Will continue to monitor patient. End of matthew ft chart check completed. P M PDTPlan of Care - Esme Funez RN - 11/07/2018 4:45 PM PDTPlan of care reviewed wit h patient with stated understanding lan of Care - Argenis Lopez RN - 11/07/2018 4:02 PM PDTCare Management Initial Assessment Readmission Risk: Medium Status Prior to Admission or Illness Arrival From: admitted as an inpatient Lives With: alone Living Arrangements: apartment Caregiver For: no one Functional Status: Independent Home Accessibility: stairs to enter home, stairs within home Transportation Available: family or friend will provide Able to return to prior living: yes Care Management Concerns Last discharge date: 10/22/18 Readmission Within Last 30 Days: other (see comments)(missed dialysis ) Is Readmission Diagnosis Related to or Same As: Previous Discharging Facility: [facility] PCP: Jonathan Alonso MD Contact Information Family Contact Information: Name: Thania Mallory(mother) DC Needs Assessment Current Outpt/Agency/Support Groups: other (see comments)(dialysis ) [facility] Anticipated Changes Related to Illness: none Concerns to be Addressed: no discharge needs identified Services Anticipated at Discharge: none Equipment Used at Home: none Pharmacy/Medication Needs: ([facility] [place] ) Transportation Needs: family or friend will provide Initial Plan Anticipated Discharge Disposition: home Notes: pt goes to [facility] for dialysis on . Pt states she may need an 02 eval o n discharge and no other CM needs at this time. Electronically signed: Argenis Lopez RN 11/07/2018 16:02 rief Op Note - Florian Galvan MD - 11/07/2018 3:30 PM PDT Service: Interventional Radiology Brief Op Note Pre-operative Diagnosis: Right pleural effusion Post-operative Diagnosis: Same Procedure(s): Right thoracentesis Surgeon: Electronically signed by: Florian Galvan MD 11/07/2018 15:30 Registered Client Associate(s): Cheryl WASSERMAN Anesthesia: Local Estimated Blood Loss: <20 mL Other: 1500 mL tea-colored serous fluid aspirated Indications: Heart failure with right-sided pleural effusion Findings: Large right pleural effusion, successful thoracentesis. 1500 mL aspirated Complications: None Condition: stable See dictated operative report for full details. Electronically signed by: Florian Galvan MD 11/07/2018 15:30 lan of Judit Flores RN - 11/07/2018 6:33 AM PDTPt c/o CP this shift. Physician notified. Nitro giv en x2, oxycodone and acetaminophen given w/ no relief. Dilaudid given x2 w/ some relief. Pt states dilaudid is the only pain med that works for her. Pt also c/o nausea, po zofran given . Pt states only IV zofran works for her. 0500- Pt called from bathroom, screaming "I'm constipated and it hurts!" Pt pacing room, te arful, dilaudid given. Pt scheduled for HD today 0700. Thoracentesis planned for today. End of shift audit complet e. lan of Judit Jerome RN - 11/06/2018 11:49 PM PDT Problem: Adult Inpatient Plan of Care Goal: Absence of Hospital-Acquired Illness or Injury Outcome: Ongoing, progressing Pt armband in place, side rails up per policy, room clear of clutter, non-skid socks in pl [place]. lan of Surinder Hernadez RN - 11/06/2018 6:22 PM PDTPt arrived at facility at 1500 from [facility]. SBP elevated 150-170's no PRN BP med indicated. All other VS wnl. SpO2 maintained >94% on 2 L NC. Pt ambulating in room independently, tolerating well. ECG and Echo completed. No acute changes from admission assessment. Chart check completed by this RN. Surinder jose, RN Problem: Adult Inpatient Plan of Care Goal: Plan of Care Review Outcome: Ongoing, progressing Problem: Fall Injury Risk Goal: Absence of Fall and Fall-Related Injury Outcome: Ongoing, progressing documented in this e ncounter Plan of Treatment + +------+--------+ + + | Name | Type | Priori | Associated Diagnoses | Order Schedule | | | | ty | | | + +------+--------+ + + | DME: Oxygen Therapy | DME | Routin | Chronic combined | DME 1 Time for 1 | | | | e | systolic and | Occurrences starting | | | | | diastolic heart | 11/09/2018 until | | | | | failure (HCC) | 11/09/2018 | | | | | Chronic right-sided | | | | | | heart failure (HCC) | | + +------+--------+ + + documented as of this encounter Procedures + +--------+ + + + | Procedure Name | Priori | Date/Time | Associated Diagnosis | Comments | | | ty | | | | + +--------+ + + + | PERFORM HOME O2 | Routin | 11/09/2018 | | | | EVALUATION | e | 9:56 AM | | | | | | PDT | | | + +--------+ + + + | HEMODIALYSIS | Routin | 11/09/2018 | | Results for this | | | e | 9:34 AM | | procedure are in the | | | | PDT | | results section. | + +--------+ + + + | PROTIME INR | Routin | 11/09/2018 | | Results for this | | | e | 4:14 AM | | procedure are in the | | | | PDT | | results section. | + +--------+ + + + | CBC WITH | Routin | 11/09/2018 | | Results for this | | DIFFERENTIAL | e | 4:14 AM | | procedure are in the | | | | PDT | | results section. | + +--------+ + + + | PHOSPHORUS | Add-On | 11/09/2018 | | Results for this | | | | 4:14 AM | | procedure are in the | | | | PDT | | results section. | + +--------+ + + + | COMPREHENSIVE | Routin | 11/09/2018 | | Results for this | | METABOLIC PANEL | e | 4:14 AM | | procedure are in the | | | | PDT | | results section. | + +--------+ + + + | PROTIME INR | Routin | 11/08/2018 | | Results for this | | | e | 4:47 AM | | procedure are in the | | | | PDT | | results section. | + +--------+ + + + | CBC WITH | Routin | 11/08/2018 | | Results for this | | DIFFERENTIAL | e | 4:47 AM | | procedure are in the | | | | PDT | | results section. | + +--------+ + + + | COMPREHENSIVE | Routin | 11/08/2018 | | Results for this | | METABOLIC PANEL | e | 4:47 AM | | procedure are in the | | | | PDT | | results section. | + +--------+ + + + | XR CHEST AP PORTABLE | Routin | 11/07/2018 | | Results for this | | | e | 4:48 PM | | procedure are in the | | | | PDT | | results section. | + +--------+ + + + | US GUIDED | Routin | 11/07/2018 | | Results for this | | THORACENTESIS WO | e | 3:35 PM | | procedure are in the | | CHEST TUBE | | PDT | | results section. | + +--------+ + + + | CULTURE, BODY FLUID | Routin | 11/07/2018 | | Results for this | | STERILE | e | 3:15 PM | | procedure are in the | | | | PDT | | results section. | + +--------+ + + + | CELL COUNT, BODY | Routin | 11/07/2018 | | Results for this | | FLUID | e | 3:15 PM | | procedure are in the | | | | PDT | | results section. | + +--------+ + + + | PROTEIN, BODY FLUID | Routin | 11/07/2018 | | Results for this | | | e | 3:15 PM | | procedure are in the | | | | PDT | | results section. | + +--------+ + + + | LACTATE | Routin | 11/07/2018 | | Results for this | | DEHYDROGENASE, BODY | e | 3:15 PM | | procedure are in the | | FLUID | | PDT | | results section. | + +--------+ + + + | GLUCOSE, BODY FLUID | Routin | 11/07/2018 | | Results for this | | | e | 3:15 PM | | procedure are in the | | | | PDT | | results section. | + +--------+ + + + | AMYLASE, BODY FLUID | Routin | 11/07/2018 | | Results for this | | | e | 3:15 PM | | procedure are in the | | | | PDT | | results section. | + +--------+ + + + | ALBUMIN, BODY FLUID | Routin | 11/07/2018 | | Results for this | | | e | 3:15 PM | | procedure are in the | | | | PDT | | results section. | + +--------+ + + + | MEDICAL CYTOLOGY | Routin | 11/07/2018 | | Results for this | | | e | 3:15 PM | | procedure are in the | | | | PDT | | results section. | + +--------+ + + + | XR CHEST PA AND | Routin | 11/07/2018 | | Results for this | | LATERAL | e | 1:32 PM | | procedure are in the | | | | PDT | | results section. | + +--------+ + + + | ECG 12 LEAD | Routin | 11/07/2018 | | Results for this | | | e | 8:03 AM | | procedure are in the | | | | PDT | | results section. | + +--------+ + + + | TROPONIN I | Routin | 11/07/2018 | | Results for this | | | e | 7:34 AM | | procedure are in the | | | | PDT | | results section. | + +--------+ + + + | ECG 12 LEAD | Routin | 11/07/2018 | | Results for this | | | e | 4:16 AM | | procedure are in the | | | | PDT | | results section. | + +--------+ + + + | PTT | Routin | 11/07/2018 | | Results for this | | | e | 4:03 AM | | procedure are in the | | | | PDT | | results section. | + +--------+ + + + | PROTIME INR | Routin | 11/07/2018 | | Results for this | | | e | 4:03 AM | | procedure are in the | | | | PDT | | results section. | + +--------+ + + + | PLATELET COUNT | Routin | 11/07/2018 | | Results for this | | | e | 4:03 AM | | procedure are in the | | | | PDT | | results section. | + +--------+ + + + | MAGNESIUM | INOCENCIO | 11/07/2018 | | Results for this | | | | 4:03 AM | | procedure are in the | | | | PDT | | results section. | + +--------+ + + + | LACTATE | Add-On | 11/07/2018 | | Results for this | | DEHYDROGENASE | | 4:03 AM | | procedure are in the | | | | PDT | | results section. | + +--------+ + + + | COMPREHENSIVE | Routin | 11/07/2018 | | Results for this | | METABOLIC PANEL | e | 4:03 AM | | procedure are in the | | | | PDT | | results section. | + +--------+ + + + | TROPONIN I | INOCENCIO | 11/06/2018 | | Results for this | | | | 9:54 PM | | procedure are in the | | | | PDT | | results section. | + +--------+ + + + | PROTIME INR | Add-On | 11/06/2018 | | Results for this | | | | 5:32 PM | | procedure are in the | | | | PDT | | results section. | + +--------+ + + + | ECHO COMPLETE | Routin | 11/06/2018 | | Results for this | | | e | 5:14 PM | | procedure are in the | | | | PDT | | results section. | + +--------+ + + + | ECG 12 LEAD | STAT | 11/06/2018 | | Results for this | | | | 3:58 PM | | procedure are in the | | | | PDT | | results section. | + +--------+ + + + | TROPONIN I | INOCENCIO | 11/06/2018 | | Results for this | | | | 3:57 PM | | procedure are in the | | | | PDT | | results section. | + +--------+ + + + | MAGNESIUM | Routin | 11/06/2018 | | Results for this | | | e | 3:57 PM | | procedure are in the | | | | PDT | | results section. | + +--------+ + + + documented in this encounter Results HEMODIALYSIS (11/09/2018 9:34 AM PDT) + + + | Narrative | Performed At | + + + | Billie Gupta MD 11/09/2018 9:34 [facility] | | | Center Hemo-Dialysis Procedure note Pt is seen on Dialysis. | | | Indication for Dialysis: ESRD for Clearance and UF Review of | | | Systems: On dialysis, the patient denies nausea, vomiting,chest | | | pain, palpitations, headaches . Laboratory Findings Lab Results | | | Component Value Date BUN 46 (H) 11/09/2018 CREA 7.5 (H) | | | 11/09/2018 EGFR 7 (L) 11/09/2018 NA 140 11/09/2018 K 4.3 | | | 11/09/2018 CL 99 11/09/2018 CO2 33 (H) 11/09/2018 CALCIUM 9.0 | | | 11/09/2018 PHOS 7.6 (H) 11/09/2018 MG 2.3 11/07/2018 ALBUMIN | | | 3.3 (L) 11/09/2018 WBC 4.25 11/09/2018 HGB 9.4 (L) 11/09/2018 | | | PLT 132 (L) 11/09/2018 Lab Results Component Value Date | | | COLORUA YELLOW 11/07/2018 Component Value Date/Time CREA | | | 7.5 (H) 11/09/2018 0414 CREA 5.6 (H) 11/08/2018 0447 CREA 7.4 | | | (H) 11/07/2018 0403 CREA 7.3 (H) 10/22/2018 0533 CREA 5.0 (H) | | | 10/21/2018 0548 CREA 5.83 (H) 10/20/2018 0641 CREA 9.21 (HH) | | | 02/24/2014 0659 LABCREA 7.2 (H) 10/19/2018 0620 LABCREA 9.3 (H) | | | 10/18/2018 0544 LABCREA 14.52 (H) 10/17/2018 0349 LABCREA 5.62 | | | (H) 08/22/2018 0702 LABCREA 9.6 (H) 08/21/2018 0502 LABCREA 8.68 | | | (H) 08/20/2018 1743 LABCREA 5.48 (H) 07/24/2018 0604 LABCREA | | | 8.3 (H) 07/23/2018 0532 LABCREA 4.6 (H) 07/21/2018 0600 [facility]A | | | 5.65 (H) 07/20/2018 0625 LABCREA 7.7 (H) 07/19/2018 0610 LABCREA | | | 7.2 (H) 06/01/2018 0443 Physical Exam Blood | | | pressure 126/76, pulse 65, temperature 36.4 C (97.6 F), | | | temperature source Oral, resp. rate 16, height 1.702 m (5' 7"), | | | weight 69.6 kg (153 lb 7 oz), SpO2 100 %, not currently | | | . 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 Rehabilitation Program Coordinator 240 | | | Constitutional: pt appears [...] MD 11/09/2018 | | + + + Phosphorus (11/09/2018 4:14 AM PDT) + + + + + + | Component | Value | Ref Range | Performed | Pathologist | | | | | At | Signature | + + + + + + | Phosphorus | 7.6 (H)Comment: Testing | 2.3 - 4.8 mg/dL | [facility] | | | | performed at [facility], [address] | | LABORATORY | | | | [address], | | | | | | [place] [address] | | | | + + + + + + + + | Specimen | + + | Blood | + + + + + + + | Performing | Address | City/State/Zipcode | Phone Number | | Organization | | | | + + + + + | [facility] | [address] | [place] [address] | [phone] | + + + + + Comprehensive Metabolic Panel (11/09/2018 4:14 AM PDT) + + + + + [...] + + + + | Glucose | 98 | 65 - 99 mg/dL | [facility] | | | | | | LABORATORY | | + + + + + + | BUN | 46 (H) | 8 - 25 mg/dL | [facility] | | | | | | LABORATORY | | + + + + + + | Creatinine | 7.5 (H) | 0.50 - 1.00 | [facility] | | | | | mg/dL | LABORATORY | | + + + + + + | BUN/Creatin | 6 | | [facility] | | | ine Ratio | | | LABORATORY | | + + + + + + | Calcium | 9.0 | 8.5 - 10.5 | [facility] | | | | | mg/dL | LABORATORY | | + + + + + + | Protein, | 6.2 (L) | 6.3 - 8.2 g/dL | [facility] | | | Total | | | LABORATORY | | + + + + + + | Albumin | 3.3 (L) | 3.6 - 5.0 g/dL | [facility] | | | | | | LABORATORY | | + + + + + + | Globulin | 2.9 | 1.3 - 4.9 g/dL | [facility] | | | | | | LABORATORY | | + + + + + + | A/G Ratio | 1.1 | 1.0 - 2.4 | [facility] | | | | | | LABORATORY | | + + + + + + | BILIRUBIN, | 0.5 | 0.1 - 1.5 mg/dL | [facility] | | | TOTAL | | | LABORATORY | | + + + + + + | ALK PHOS | 108 | 35 - 115 U/L | [facility] | | | | | | LABORATORY | | + + + + + + | AST | 15 | 10 - 45 U/L | [facility] | | | | | | LABORATORY | | + + + + + + | ALT | 30 | 10 - 65 U/L | [facility] [...] | | | | | | MDRD [facility] traceable | | | | | | equation.Testing | | | | | | performed at [facility], [address] | | | | | | [facility], | | | | | | [place] [address] | | | | + + + + + + + + | Specimen | + + | Blood | + + + + + + + | Performing | Address | City/State/Zipcode | Phone Number | | Organization | | | | + + + + + | [facility] | [address] | [place] [address] | [phone] | + + + + + CBC with Differential (11/09/2018 4:14 AM PDT) + + + + + + | Component | Value | Ref Range | Performed | Pathologist | | | | | At | Signature | + + + + + + | WBC | 4.25 | 3.80 - 11.00 | [facility] | | | | | K/uL | LABORATORY | | + + + + + + | Red Blood | 2.63 (L) | 3.70 - 5.10 | [facility] | | | Cells | | M/uL | LABORATORY | | + + + + + + | Hemoglobin | 9.4 (L) | 11.3 - 15.5 | [facility] | | | | | g/dL | LABORATORY | | + + + + + + | Hematocrit | 28.0 (L) | 34.0 - 46.0 % | [facility] | | | | | | LABORATORY | | + + + + + + | MCV | 106.6 (H) | 80.0 - 100.0 fl | [...] + + + + | RDW-SD | 51.2 | 37 - 53 fl | [facility] | | | | | | LABORATORY | | + + + + + + | Platelet | 132 (L) | 150 - 400 K/uL | [facility] | | | Count | | | LABORATORY | | + + + + + + | MPV | 10.2 | fl | [facility] | | | | | | LABORATORY | | + + + + + + | Diff Type | AUTOMATED | | [facility] | | | | | | LABORATORY | | + + + + + + | % | 59.30 | % | [facility] | | | Neutrophils | | | LABORATORY | | + + + + + + | % | 22.71 | % | [facility] | | | Lymphocytes | | | LABORATORY | | + + + + + + | Monocyte % | 6.17 | % | [facility] | | | | | | LABORATORY | | + + + + + + | Eosinophils | 10.89 | % | [facility] | | | % | | | LABORATORY | | + + + + + + | Basophils % | 0.93 | % | [facility] | | | | | | LABORATORY | | + + + + + + | Neutrophils | 2.52 | 1.90 - 7.40 | [facility] | | | , Absolute | | K/uL | LABORATORY | | + + + + + + | Absolute | 0.97 (L) | 1.00 - 3.90 | [facility] | | | Lymphocytes | | K/uL | LABORATORY | | + + + + + + | Absolute | 0.26 | 0.00 - 0.80 | [facility] | | | Monocytes | | K/uL | LABORATORY | | + + + + + + | Eosinophils | 0.46 | 0.00 - 0.50 | [facility] | | | , Absolute | | K/uL | LABORATORY | | + + + + + + | Basophils, | 0.04 | 0.00 - 0.10 | [facility] | | | Absolute | | K/uL | LABORATORY | | + + + + + + | RBC | 2+Comment: MACRONORMAL | | [facility] | | | Morphology | PLT MORPHTesting | | LABORATORY | | | | performed at [facility], [address] | | | | | [facility], | | | | | | [place] [address] | | | | | | | | | | + + + + + + + + | Specimen | + + | Blood | + + + + + + + | Performing | Address | City/State/Zipcode | Phone Number | | Organization | | | | + + + + + | [facility] | [address] | [place] [address] | [phone] | + + + + + Protime INR (11/09/2018 4:14 AM PDT) + + + + + + | Component | Value | Ref Range | Performed | Pathologist | | | | | At | Signature | + + + + + + | INR | 1.3Comment: REFERENCE | | [facility] | | | | RANGE:0.9 [...] | | | | | performed at [facility];[address] | | | | | | [address];[place] | | | | | | [address] | | | | + + + + + + + + | Specimen | + + | Blood | + + + + + + + | Performing | Address | City/State/Zipcode | Phone Number | | Organization | | | | + + + + + | [facility] | [address] | [place] [address] | [phone] | + + + + + Comprehensive Metabolic Panel (11/08/2018 4:47 AM PDT) + + + + + [...] | 4.5 | 3.5 - 4.9 | [facility] | [...] + + + + | Glucose | 80 | 65 - 99 mg/dL | [facility] | | | | | | LABORATORY | | + + + + + + | BUN | 32 (H) | 8 - 25 mg/dL | [facility] | | | | | | LABORATORY | | + + + + + + | Creatinine | 5.6 (H) | 0.50 - 1.00 | [facility] [...] + + + + | Globulin | 3.3 | 1.3 - 4.9 g/dL | [facility] | | | | | | LABORATORY | | + + + + + + | A/G Ratio | 1.0 | 1.0 - 2.4 | [facility] | | | | | | LABORATORY | | + + + + + + | BILIRUBIN, | 0.6 | 0.1 - 1.5 mg/dL | [facility] | | | TOTAL | | | LABORATORY | | + + + + + + | ALK PHOS | 125 (H) | 35 - 115 U/L | [facility] | | | | | | LABORATORY | | + + + + + + | AST | 24 | 10 - 45 U/L | [facility] | | | | | | LABORATORY | | + + + + + + | ALT | 40 | 10 - 65 U/L | [facility] | | | | | | LABORATORY | | + + + + + + | Estimated | 9 (L)Comment: GFR <60: | >60 | [facility] [...] | | | | | | MDRD [facility] traceable | | | | | | equation.Testing | | | | | | performed at [facility], [address] | | | | | | [facility], | | | | | | [place] [address] | | | | + + + + + + + + | Specimen | + + | Blood | + + + + + + + | Performing | Address | City/State/Zipcode | Phone Number | | Organization | | | | + + + + + | [facility] | [address] | [place] [address] | [phone] | + + + + + CBC with Differential (11/08/2018 4:47 AM PDT) + + +---- + + + | Component | Value | Ref Range | Performed | Pathologist | | | | | At | Signature | + + +---- + + + | WBC | 7.11 | 3.8 0 - 11.00 | [facility] | | | | | K/u L | LABORATORY | | + + +---- + + + | Red Blood | 2.92 (L) | 3.7 0 - 5.10 | [facility] | | | Cells | | M/u L | LABORATORY | | + + +---- + + + | Hemoglobin | 10.6 (L) | 11. 3 - 15.5 | [facility] | | | | | g/d L | LABORATORY | | + + +---- + + + | Hematocrit | 31.3 (L) | 34. 0 - 46.0 % | [facility] | | | | | | LABORATORY | | + + +---- + + + | MCV | 107.3 (H) | 80. 0 - 100.0 fl | [facility] | | | | | | LABORATORY | | + + +---- + + + | MCH | 36.2 (H) | 27. 0 - 34.0 pg | [facility] | | | | | | LABORATORY | | + + +---- + + + | MCHC | 33.7 | 32. 0 - 35.5 | [facility] | | | | | g/d L | LABORATORY | | + + +---- + + + | RDW-SD | 51.6 | 37 - 53 fl | [facility] | | | | | | LABORATORY | | + + +---- + + + | Platelet | 169 | 150 - 400 K/uL | [facility] | | | Count | | | LABORATORY | | + + +---- + + + | MPV | 10.3 | fl | [facility] | | | | | | LABORATORY | | + + +---- + + + | Diff Type | AUTOMATED | | [facility] | | | | | | LABORATORY | | + + +---- + + + | % | 72.66 | % | [facility] | | | Neutrophils | | | LABORATORY | | + + +---- + + + | % | 15.82 | % | [facility] | | | Lymphocytes | | | LABORATORY | | + + +---- + + + | Monocyte % | 4.50 | % | [facility] | | | | | | LABORATORY | | + + +---- + + + | Eosinophils | 5.98 | % | [facility] | | | % | | | LABORATORY | | + + +---- + + + | Basophils % | 1.04 | % | [facility] | | | | | | LABORATORY | | + + +---- + + + | Neutrophils | 5.17 | 1.9 0 - 7.40 | [facility] | | | , Absolute | | K/u L | LABORATORY | | + + +---- + + + | Absolute | 1.13 | 1.0 0 - 3.90 | [facility] | | | Lymphocytes | | K/u L | LABORATORY | | + + +---- + + + | Absolute | 0.32 | 0.0 0 - 0.80 | [facility] | | | Monocytes | | K/u L | LABORATORY | | + + +---- + + + | Eosinophils | 0.43 | 0.0 0 - 0.50 | [facility] | | | , Absolute | | K/u L | LABORATORY | | + + +---- + + + | Basophils, | 0.07 | 0.0 0 - 0.10 | [facility] | | | Absolute | | K/u L | LABORATORY | | + + +---- + + + | RBC | 2+Comment: | | [facility] | | | Morphology | MACRO1+ANISONORMAL PLT | | LABORATORY | | | | MORPHTesting performed | | | | | | at [facility], [address] | | | | | | [facility], | | | | | | [place] [address] | | | | | |Testing performed at [facility], [address] [facility], [place] [address] | | | | | | | | | | + + +---- + + + + + | Specimen | + + | Blood | + + + + + + + | Performing | Address | City/State/Zipcode | Phone Number | | Organization | | | | + + + + + | [facility] | [address] | [place] [address] | [phone] | + + + + + Protime INR (11/08/2018 4:47 AM PDT) + + + + + + | Component | Value | Ref Range | Performed | Pathologist | | | | | At | Signature | + + + + + + | INR | 1.3Comment: REFERENCE | | [facility] | | | | RANGE:0.9 [...] | | | | | performed at [facility];[address] | | | | | [address];[place] | | | | | | [address] | | | | + + + + + + + + | Specimen | + + | Blood | + + + + + + + | Performing | Address | City/State/Zipcode | Phone Number | | Organization | | | | + + + + + | [facility] | [address] | [place] [address] | [phone] | + + + + + XR Chest AP Portable (11/07/2018 4:48 PM PDT) + + | Specimen | + + | | + + + + + | Narrative | Performed At | + + + | CHEST PORTABLE ONE VIEW CLINICAL INFORMATION: Status post | [facility] | | right thoracentesis. COMPARISON: US GUIDED THORACENTESIS WO CHEST | | | TUBE (11/07/2018); XR CHEST PA AND LATERAL (11/07/2018); CT CHEST WITH | | | CONTRAST (11/06/2018); FINDINGS: Interval decrease in the volume of | | | the right pleural effusion. No appreciable pneumothorax to suggest | | | complication of the procedure. Mild cardiomegaly again noted no | | | overt failure. IMPRESSION: Interval decrease in the volume of the | | | right pleural effusion consistent with a history of recent | | | thoracentesis. No pneumothorax to suggest complication of the | | | procedure. Signed by: Eliza Coy, [place] Date/Time: | | | 11/07/2018 4:52 PM | | + + + + + | Procedure Note | + + | Cedric, Rad Results In - 11/07/2018 4:55 PM PDT | | CHEST PORTABLE ONE VIEW | | | | CLINICAL INFORMATION: | | Status post right thoracentesis. | | | | COMPARISON: | | US GUIDED THORACENTESIS WO CHEST TUBE (11/07/2018); XR CHEST PA AND | | LATERAL (11/07/2018); CT CHEST WITH CONTRAST (11/06/2018); | | | | FINDINGS: | | Interval decrease in the volume of the right pleural effusion. No | | appreciable pneumothorax to suggest complication of the procedure. | | Mild cardiomegaly again noted no overt failure. | | | | IMPRESSION: | | Interval decrease in the volume of the right pleural effusion | | consistent with a history of recent thoracentesis. | | | | No pneumothorax to suggest complication of the procedure. | | | | | | | | Signed by: Eliza Coy Dwane | | Sign Date/Time: 11/07/2018 4:52 PM | + + + +---------+ + + | Performing | Address | City/State/Zipcode | Phone Number | | Organization | | | | + +---------+ + + | [facility] | | | | + +---------+ + + US Guided Thoracentesis wo Chest Tube (11/07/2018 3:35 PM PDT) + + | Specimen | + + | | + + + + + | Narrative | Performed At | + + + | ULTRASOUND GUIDED RIGHT THORACENTESIS CLINICAL INFORMATION: | [facility] | | Large right-sided pleural effusion PROCEDURE: Cheryl WASSERMAN | | | performed the procedure under the direct supervision of Dr. Du | | | oCle ALMEIDA/PhD. Prior to the procedure, risks and benefits were | | | explained to the patient and informed written and verbal consent | | | obtained. Patient was placed in upright position and location | | | adjacent to pleural fluid marked on the skin using ultrasound | | | guidance and the area prepped and draped in the usual sterile | | | fashion. Using lidocaine for local anesthesia, the pleural space is | | | punctured with an 5-Arabic thoracentesis catheter. Fluid is aspirated | | | without complication. The patient tolerated the procedure well. No | | | immediate complications. Estimated Blood Loss: Minimal. | | | IMPRESSION: Uncomplicated thoracentesis. 1500 mL of tea-colored | | | serous fluid are obtained and sent for laboratory analysis per the | | | clinician's orders. Signed by: Eliza Galvan, Florian Sign | | | Date/Time: 11/07/2018 3:51 PM | | + + + + + | Procedure Note | + + | Cedric, Rad Results In - 11/07/2018 3:54 PM PDT | | ULTRASOUND GUIDED RIGHT THORACENTESIS | | | | CLINICAL INFORMATION: | | Large right-sided pleural effusion | | | | PROCEDURE: | | Cheryl WASSERMAN performed the procedure under the direct supervision | | of Dr. Florian Galvan MD/PhD. | | | | Prior to the procedure, risks [...] the pleural space is punctured with an 5-Arabic | | thoracentesis catheter. Fluid is aspirated without complication. The | | patient tolerated the procedure well. No immediate complications. | | | | Estimated Blood Loss: Minimal. | | | | IMPRESSION: | | Uncomplicated thoracentesis. 1500 mL of tea-colored serous fluid are | | obtained and sent for laboratory analysis per the clinician's orders. | | | | | | | | Signed by: Eliza Galvan David | | Sign Date/Time: 11/07/2018 3:51 PM | + + + +---------+ + + | Performing | Address | City/State/Zipcode | Phone Number | | Organization | | | | + +---------+ + + | [facility] | | | | + +---------+ + + Culture, Body Fluid Sterile (11/07/2018 3:15 PM PDT) + + + + + [...] LABORATORY | | | | [address];[place] [address] | | | | + + + + + + | Gram Stain | NO CELLS OR ORGANISMS | | [facility] | | | Result | SEEN | | LABORATORY | | + + + + + + | RESULT | NO GROWTH 4 DAYS | | [facility] | | | | | | LABORATORY | | + + + + + + | RESULT | Testing performed at | | [facility] | | | | TCL, [address] | | LABORATORY | | | | [place] | | | | | | [id number]: Testing | | | | | | performed at [facility], [address], [place] | | | | | | [address] | | | | + + + + + + + + | Specimen | + + | Body Fluid - Pleural | | fluid specimen | | (specimen) | + + + + + + + | Performing | Address | City/State/Zipcode | Phone Number | | Organization | | | | + + + + + | [facility] | [address] | [place] [address] | [phone] | + + + + + Protein, Body Fluid (11/07/2018 3:15 PM PDT) + + + + + + | Component | Value | Ref Range | Performed | Pathologist | | | | | At | Signature | + + + + + + | Protein, | 3.4Comment: This is not | g/dL | [facility] | | | Body Fluid | a airline reservation agent validated | | LABORATORY | | | | sample type for this | | | | | | method. No | | | | | | referenceranges have | | | | | | been established.Testing | | | | | | performed at [facility], [address], | | | | | | [place] [address] | | | | + + + + + + | SOURCE | PLEURAL FLUIDComment: | | [facility] | | | | Testing performed at | | LABORATORY | | | | [facility] [address] | | | | | | [address] [address] | | | | + + + + + + + + | Specimen | + + | Body Fluid | + + + + + + + | Performing | Address | City/State/Zipcode | Phone Number | | Organization | | | | + + + + + | [facility] | [address] | [place] [address] | [phone] | + + + + + Lactate dehydrogenase, body fluid (11/07/2018 3:15 PM PDT) + + + + + + | Component | Value | Ref Range | Performed | Pathologist | | | | | At | Signature | + + + + + + | Lactate | 102Comment: This is not | U/L | [facility] | | | Dehydrogena | a airline reservation agent validated | | LABORATORY | | | se, Body | sample type for this | | | | | Fluid | method. No | | | | | | referenceranges have | | | | | | been established.Testing | | | | | | performed at [facility], [address] | | | | | | [address] [facility], | | | | | | [place] [address] | | | | + + + + + + + + | Specimen | + + | Body Fluid | + + + + + + + | Performing | Address | City/State/Zipcode | Phone Number | | Organization | | | | + + + + + | [facility] | [address] [address] | [place] [address] | [phone] | + + + + + Glucose, Body Fluid (11/07/2018 3:15 PM PDT) + + + + + + | Component | Value | Ref Range | Performed | Pathologist | | | | | At | Signature | + + + + + + | Glucose | 96Comment: This is not a | mg/dL | [facility] | | | Fluid | airline reservation agent validated | | LABORATORY | | | | sample type for this | | | | | | method. No | | | | | | referenceranges have | | | | | | been established.Testing | | | | | | performed at [facility], [address] | | | | | | [address] [facility], | | | | | | [place] [address] | | | | + + + + + + | SOURCE | PLEURAL FLUIDComment: | | KR | | | | Testing performed at | | LABORATORY | | | | [facility];[address] | | | | | | [place] [address] | | | | + + + + + + + + | Specimen | + + | Body Fluid | + + + + + + + | Performing | Address | City/State/Zipcode | Phone Number | | Organization | | | | + + + + + | [facility] | [address] | [place] [address] | [phone] | + + + + + Cell Count, Body Fluid (11/07/2018 3:15 PM PDT) + + + + + + | Component | Value | Ref Range | Performed | Pathologist | | | | | At | Signature | + + + + + + | Specimen | PLEURAL FLUID | | [facility] | | | Type | | | LABORATORY | | + + + + + + | Color, | YELLOW | | [facility] | | | Urine | | | LABORATORY | | + + + + + + | Appearance | CLEAR | | [facility] | | | | | | LABORATORY | | + + + + + + | Red Blood | <80915 | /mm3 | [facility] | | | Cells, Body | | | LABORATORY | | | Fluid | | | | | + + + + + + | Nucleated | 6 | /mm3 | [facility] | [...] + + + + | % | 7 | % | [facility] | | | Lymphocytes | | | LABORATORY | | | , Body | | | | | | Fluid | | | | | + + + + + + | % | 6 | % | [facility] | [...] + + + | Total Cells | 25Comment: Testing | | [facility] | | | Counted | performed at [facility];[address] | | LABORATORY | | | | [address];[place] | | | | | | [address] | | | | + + + + + + + + | Specimen | + + | Body Fluid | + + + + + + + | Performing | Address | City/State/Zipcode | Phone Number | | Organization | | | | + + + + + | [facility] | [address] | [place] [address] | [phone] | + + + + + Amylase, Body Fluid (11/07/2018 3:15 PM PDT) + + + + + + | Component | Value | Ref Range | Performed | Pathologist | | | | | At | Signature | + + + + + + | Amylase, | 46Comment: This is not a | U/L | [facility] | | | Body Fluid | airline reservation agent validated | | LABORATORY | | | | sample type for this | | | | | | method. No | | | | | | referenceranges have | | | | | | been established.Testing | | | | | | performed at [facility], [address] | | | | | | [address] [facility], | | | | | | [place] [address] | | | | + + + + + + + + | Specimen | + + | Body Fluid | + + + + + + + | Performing | Address | City/State/Zipcode | Phone Number | | Organization | | | | + + + + + | [facility] | [address] | [place] [address] | [phone] | + + + + + Albumin, Body Fluid (11/07/2018 3:15 PM PDT) + + + + + + | Component | Value | Ref Range | Performed | Pathologist | | | | | At | Signature | + + + + + + | Albumin, | 2.0Comment: This is not | g/dL | [facility] | | | Fluid | a airline reservation agent validated | | LABORATORY | | | | sample type for this | | | | | | method. No | | | | | | referenceranges have | | | | | | been established.Testing | | | | | | performed at [facility], [address] | | | | | | [facility], | | | | | | [place] [address] | | | | + + + + + + + + | Specimen | + + | Body Fluid | + + + + + + + | Performing | Address | City/State/Zipcode | Phone Number | | Organization | | | | + + + + + | [facility] | [address] | [place] [address] | [phone] | + + + + + Medical Cytology (11/07/2018 3:15 PM PDT) + + | Specimen | + + | Body Fluid - Pleural | | fluid specimen | | (specimen) | + + + + + | Narrative | Performed At | + + + | ORDERING | [facility] | | PHYSICIAN:Dex ALMEIDA, Darell U PATIENT NAME:DARA LOUISEENDER: | [employer] | | F : 1995 SPECIMEN(S): A PLEURAL FLUID, RIGHT GROSS | | | DESCRIPTION: 30 ML OF CLOUDY, YELLOW FLUID WITH WHITE FLOATING | | | MATTER IN CYTOLOGY FIXATIVE CLINICAL HISTORY: NO CLINICAL DATA | | | PROVIDED LABORATORY PREPARATIONS: 1 MONOLAYER, 1 CELL BLOCK | | | CYTOLOGIC INTERPRETATION:Pleural effusion:Negative for malignant | | | cells. DESCRIPTION:The preparations contain mesothelial cells, rare | | | inflammatory cells, and acellular proteinaceous material. Atypical | | | cytologic findings are not encountered. SPECIMEN ADEQUACY:Satisfactory | | | for Evaluation PERFORMING LABORATORY:Technical preparation was | | | performed by [facility], [address] [place] [address] | | | [place] [address] (Individual Small Group Instructor: Matt Claudio D.O.; CLIA#: | | | [id number]).Professional interpretation was performed by [facility] | | | [facility] | | | [place] [address] (Individual Small Group Instructor: Daniel Larson M.D.; CLIA#: | | | [id number]).6 Diagnostician: Enrrique Nichols | | | CT([facility])CytotechnologistDiagnostician: Daniel Larson | | | MDPathologistElectronically Signed 11/13/2018 | | |DESCRIPTION: | | |The preparations contain mesothelial cells, rare inflammatory cells, and acellular proteina ceous material. Atypical cytologic findings are not encountered. | | | | | |SPECIMEN ADEQUACY: | | |Satisfactory for Evaluation | | | | | |PERFORMING LABORATORY: | | |Technical preparation was performed by [facility], [address] [place] [address] [place] [address] (Individual Small Group Instructor: Matt Claudio D.O.; CLIA#: [id number]). | | |Professional interpretation was performed by [facility], [facility], [address] [place] [address] (Individual Small Group Instructor: Daniel Larson M.D.; CLIA#: [id number]).6 | | | | | |Diagnostician: Enrrique BROOKS([facility]) | | |[employer] | | |Diagnostician: Daniel Larson MD | [...] + XR Chest PA and Lateral (11/07/2018 1:32 PM PDT) + + | Specimen | [...] seen. This is possibly loculated. There is dense | | | appearance seen at the right lung base, raising the possibility of | | | collapse of the underlying lung. Curvilinear edge identified at the | | | right lung apex, potentially reflecting a pneumothorax. | | | Cardiomediastinal silhouette and osseous structures appear grossly | | | unremarkable. IMPRESSION: Moderate to large right pleural | | | effusion. This is possibly loculated. Dense appearance of the right | | | lung base, raising the possibility of collapsed underlying lung. | | | Curvilinear identified at the right lung apex, potentially reflecting | | | a pneumothorax. Given above findings, consider CT chest examination | | | for definitive assessment. Signed by: Eliza Lenz Amit | | | Sign Date/Time: 11/07/2018 1:36 PM | | + + + + + | Procedure Note | + + | Cedric, Rad Results In - 11/07/2018 1:39 PM PDT | | CHEST PA AND LATERAL [...] + +---------+ + + ECG 12 lead (11/07/2018 8:03 AM PDT) + + + + + + | Component | Value | Ref Range | Performed | Pathologist | | | | | At | Signature | + + + + + + | VENTRICULAR | 70 | BPM | [facility] | | | RATE EKG | | | | | + + + + + + | ATRIAL RATE | 70 | BPM | [facility] | | + + + + + + | P-R | 172 | ms | [facility] | | | INTERVAL | | | | | + + + + + + | QRS | 102 | ms | [facility] | | | DURATION | | | | | + + + + + + | Q-T | 428 | ms | [facility] | | | INTERVAL | | | | | + + + + + + | Q-T | 462 | ms | [facility] | | | INTERVAL | | | | | | (CORRECTED) | | | | | + + + + + + | P WAVE AXIS | 23 | degrees | [facility] | | + + + + + + | QRS AXIS | 39 | degrees | [facility] | | + + + + + + | T AXIS | 167 | degrees | [facility] | | + + + + + + | INTERPRETAT | Normal sinus | | [facility] | | | ION TEXT | rhythmIncomplete right | | | | | | bundle branch blockT | | | | | | wave abnormality, | | | | | | consider lateral | | | | | | ischemiaAbnormal ECGWhen | | | | | | compared with ECG of | | | | | | 04-NOV-2018 | | | | | | 04:16,Incomplete right | | | | | | bundle branch block is | | | | | | now PresentT wave | | | | | | inversion more evident | | | | | | in Lateral | | | | | | leadsConfirmed by TRICE | | | | | | MARK ALMEIDA ([id number]) on | | | | | | 11/07/2018 9:24:38 PM | | | | + + [...] | + +---------+ + + Troponin I (11/07/2018 7:34 AM PDT) + + + + + + | Component | Value | Ref Range | Performed | Pathologist | | | | | At | Signature | + + + + + + | Troponin I | 0.045 (H)Comment: 0.04 | 0.00 - 0.04 | [facility] | | | | ng/mL [...] at | | | | | | [facility];[address] [facility] | | | | | | vd;[place] [address] | | | | + + + + + + + + | Specimen | + + | Blood | + + + + + + + | Performing | Address | City/State/Zipcode | Phone Number | | Organization | | | | + + + + + | [facility] | [address] | [place] [address] | [phone] | + + + + + ECG 12 lead (11/07/2018 4:16 AM PDT) + + + + + + | Component | Value | Ref Range | Performed | Pathologist | | | | | At | Signature | + + + + + + | VENTRICULAR | 89 | BPM | [facility] | | | RATE EKG | | | | | + + + + + + | ATRIAL RATE | 89 | BPM | [facility] | | + + + + + + | P-R | 180 | ms | [facility] | | | INTERVAL | | | | | + + + + + + | QRS | 96 | ms | [facility] | | | DURATION | | | | | + + + + + + | Q-T | 402 | ms | [facility] | | | INTERVAL | | | | | + + + + + + | Q-T | 489 | ms | [facility] | | | INTERVAL | | | | | | (CORRECTED) | | | | | + + + + + + | P WAVE AXIS | 25 | degrees | [facility] | | + + + + + + | QRS AXIS | -5 | degrees | [facility] | | + + + + + + | T AXIS | 54 | degrees | [facility] | | + + + + + + | INTERPRETAT | Normal sinus | | [facility] | | | ION TEXT | rhythmProlonged QTT wave | | | | | | abnormality, consider | | | | | | lateral ischemiaAbnormal | | | | | | ECGWhen compared with | | | | | | ECG of 06-NOV-2018 | | | | | | 15:58,No significant | | | | | | changeConfirmed by TRICE | | | | | | MARK ALMEIDA ([id number]) on | | | | | | 11/07/2018 9:22:39 PM | | | | + + [...] | + +---------+ + + Protime INR (11/07/2018 4:03 AM PDT) + + + + + [...] | | | | | performed at [facility] | | | | | | [address];[place], [place] | | | | | | [address] | | | | + + + + + + + + | Specimen | + + | Blood | + + + + + + + | Performing | Address | City/State/Zipcode | Phone Number | | Organization | | | | + + + + + | [facility] | [address] | [place] [address] | [phone] | + + + + + Platelet Count (11/07/2018 4:03 AM PDT) + + + + + + | Component | Value | Ref Range | Performed | Pathologist | | | | | At | Signature | + + + + + + | Platelet | 185Comment: Testing | 150 - 400 K/uL | [facility] | | | Count | performed at [facility], [address] | | LABORATORY | | | | [address], | | | | | | [place] [address] | | | | + + + + + + + + | Specimen | + + | Blood | + + + + + + + | Performing | Address | City/State/Zipcode | Phone Number | | Organization | | | | + + + + + | [facility] | [address] [facility] | [place] [address] | [phone] | + + + + + PTT (11/07/2018 4:03 AM PDT) + + + + + + | Component | Value | Ref Range | Performed | Pathologist | | | | | At | Signature | + + + + + + | PTT | 27Comment: Testing | 23 - 32 seconds | [facility] | | | | performed at [facility];[address] | | LABORATORY | | | | [address];[place], [place] | | | | | | [address] | | | | + + + + + + + + | Specimen | + + | Blood | + + + + + + + | Performing | Address | City/State/Zipcode | Phone Number | | Organization | | | | + + + + + | [facility] | [address] | [place] [address] | [phone] | + + + + + Lactate Dehydrogenase (11/07/2018 4:03 AM PDT) + + + + + + | Component | Value | Ref Range | Performed | Pathologist | | | | | At | Signature | + + + + + + | LDH TOTAL | 202Comment: Testing | 120 - 246 U/L | [facility] | | | | performed at [facility];[address] | | LABORATORY | | | | [address];[place] | | | | | | [address] | | | | + + + + + + + + | Specimen | + + | Blood | + + + + + + + | Performing | Address | City/State/Zipcode | Phone Number | | Organization | | | | + + + + + | [facility] | [address] | [place] [address] | [phone] | + + + + + Magnesium (11/07/2018 4:03 AM PDT) + + + + + + | Component | Value | Ref Range | Performed | Pathologist | | | | | At | Signature | + + + + + + | Magnesium | 2.3Comment: Testing | 1.7 - 2.4 mg/dL | [facility] | | | | performed at [facility];[address] | | LABORATORY | | | | [address];[place], [place] | | | | | | [address] | | | | + + + + + + + + | Specimen | + + | Blood | + + + + + + + | Performing | Address | City/State/Zipcode | Phone Number | | Organization | | | | + + + + + | [facility] | [address] | [place] [address] | [phone] | + + + + + Comprehensive Metabolic Panel (11/07/2018 4:03 AM PDT) + + + + + [...] + + + | K | 5.5 (H) | 3.5 - 4.9 | [facility] [...] 20 | 5 - 20 mmol/L | [facility] | | | | | | LABORATORY | | + + + + + + | Glucose | 102 (H) | 65 - 99 mg/dL | [...] + + + + | BUN/Creatin | 9 | | [facility] | | | ine Ratio | | | LABORATORY | | + + + + + + | Calcium | 9.3 | 8.5 - 10.5 | [facility] | | | | | mg/dL | LABORATORY | | + + + + + + | Protein, | 7.0 | 6.3 - 8.2 g/dL | [facility] | | | Total | | | LABORATORY | | + + + + + + | Albumin | 3.6 | 3.6 - 5.0 g/dL | [facility] | | | | | | LABORATORY | | + + + + + + | Globulin | 3.4 | 1.3 - 4.9 g/dL | [facility] | | | | | | LABORATORY | | + + + + + + | A/G Ratio | 1.1 | 1.0 - 2.4 | [facility] | | | | | | LABORATORY | | + + + + + + | BILIRUBIN, | 0.9 | 0.1 - 1.5 mg/dL | [facility] | | | TOTAL | | | LABORATORY | | + + + + + + | ALK PHOS | 130 (H) | 35 - 115 U/L | [facility] | | | | | | LABORATORY | | + + + + + + | AST | 20 | 10 - 45 U/L | [facility] | | | | | | LABORATORY | | + + + + + + | ALT | 40 | 10 - 65 U/L | [facility] [...] | | | | | performed at [facility], [address] | | | | | | [address], | | | | | | [place] [address] | | | | + + + + + + + + | Specimen | + + | Blood | + + + + + + + | Performing | Address | City/State/Zipcode | Phone Number | | Organization | | | | + + + + + | [facility] | [address] | [place] [address] | [phone] | + + + + + Troponin I (11/06/2018 9:54 PM PDT) + + + + + + | Component | Value | Ref Range | Performed | Pathologist | | | | | At | Signature | + + + + + + | Troponin I | 0.045 (H)Comment: 0.04 | 0.00 - 0.04 | [...] at | | | | | | [facility];[address] [facility] | | | | | | [address]vd;[place] [address] | | | | + + + + + + + + | Specimen | + + | Blood | + + + + + + + | Performing | Address | City/State/Zipcode | Phone Number | | Organization | | | | + + + + + | [facility] | [address] | [place] [address] | [phone] | + + + + + Protime INR (11/06/2018 5:32 PM PDT) + + + + + + | Component | Value | Ref Range | Performed | Pathologist | | | | | At | Signature | + + + + + + | INR | 1.3Comment: REFERENCE | | KR | | | | RANGE:0.9 - 1.2 [...] | | | | | performed at [facility];[address] | | | | | | [address];[place], [place] | | | | | | [address] | | | | + + + + + + + + | Specimen | + + | Blood | + + + + + + + | Performing | Address | City/State/Zipcode | Phone Number | | Organization | | | | + + + + + | [facility] | [address] | [place] [address] | [phone] | + + + + + ECHO Complete (11/06/2018 5:14 PM PDT) + +--------+ + + + [...] + +---------+ + + ECG 12 lead (11/06/2018 3:58 PM PDT) + + + + + + | Component | Value | Ref Range | Performed | Pathologist | | | | | At | Signature | + + + + + + | VENTRICULAR | 82 | BPM | [facility] | | | RATE EKG | | | | | + + + + + + | ATRIAL RATE | 82 | BPM | [facility] | | + + + + + + | P-R | 166 | ms | [facility] | | | INTERVAL | | | | | + + + + + + | QRS | 86 | ms | [facility] | | | DURATION | | | | | + + + + + + | Q-T | 408 | ms | [facility] | | | INTERVAL | | | | | + + + + + + | Q-T | 476 | ms | [facility] | | | INTERVAL | | | | | | (CORRECTED) | | | | | + + + + + + | P WAVE AXIS | 33 | degrees | [facility] | | + + + + + + | QRS AXIS | -26 | degrees | [facility] | | + + + + + + | T AXIS | 80 | degrees | [facility] | | + + + + + + | INTERPRETAT | Normal sinus | | [facility] | | | ION TEXT | rhythmPossible Left | | | | | | atrial enlargementST & T | | | | | | wave abnormality, | | | | | | consider lateral | | | | | | ischemiaProlonged | | | | | | QTAbnormal ECGWhen | | | | | | compared with ECG of | | | | | | 18-OCT-2018 06:38,QRS | | | | | | axis Shifted | | | | | | leftConfirmed by TRICE | | | | | | MARK ALMEIDA ([id number]) on | | | | | | 11/07/2018 9:18:55 PM | | | | + + [...] | + +---------+ + + Troponin I (11/06/2018 3:57 PM PDT) + + + + + + | Component | Value | Ref Range | Performed | Pathologist | | | | | At | Signature | + + + + + + | Troponin I | 0.066 (H)Comment: 0.04 | 0.00 - 0.04 | [...] at | | | | | | [facility];[address] [place] [address] | | | | | | [facility];[place] [address] | | | | + + + + + + + + | Specimen | + + | Blood | + + + + + + + | Performing | Address | City/State/Zipcode | Phone Number | | Organization | | | | + + + + + | [facility] | [address] | [place] [address] | [phone] | + + + + + Magnesium (11/06/2018 3:57 PM PDT) + + + + + + | Component | Value | Ref Range | Performed | Pathologist | | | | | At | Signature | + + + + + + | Magnesium | 2.4Comment: Testing | 1.7 - 2.4 mg/dL | [facility] | | | | performed at [facility], [address] | | LABORATORY | | | | [address], | | | | | | [place] [address] | | | | + + + + + + + + | Specimen | + + | Blood | + + + + + + + | Performing | Address | City/State/Zipcode | Phone Number | | Organization | | | | + + + + + | [facility] | [address] | [place] [address] | [phone] | + + + + + documented in this encounter Visit Diagnoses + + | Diagnosis | + + | Pulmonary edema with congestive heart failure with reduced left ventricular function | | ([facility]) - Primary Congestive heart failure, unspecified | + + | Acute hypoxemic respiratory failure (HCC) | + + | Chronic combined systolic and diastolic heart failure ([facility]) Chronic combined systolic | | and diastolic heart failure | + + | Dilated cardiomyopathy (HCC) Other primary cardiomyopathies | + + | ESRD on hemodialysis (HCC) End stage renal disease | + + | Moderate to severe pulmonary hypertension (HCC) Other chronic pulmonary heart | | diseases | + + | Pleural effusion, not elsewhere classified | + + | Non-compliance Personal history of noncompliance with medical treatment, presenting | | hazards to health | + + | Troponin I above reference range Other abnormal blood chemistry | + + | Anemia in ESRD (end-stage renal disease) (HCC) Anemia in chronic kidney disease | + + | At high risk for electrolyte imbalance | + + | Chronic right-sided heart failure (HCC) Congestive heart failure, unspecified | + + | Hyperkalemia Hyperpotassemia | + + | Pericardial effusion without cardiac tamponade | + + | SOB (shortness of breath) Shortness of breath | + + | Hypertensive urgency Unspecified essential hypertension | + + | Secondary hyperparathyroidism (HCC) Secondary hyperparathyroidism (of renal origin) | + + | Non-rheumatic mitral regurgitation | + + | Non-rheumatic tricuspid valve insufficiency Tricuspid valve disorders, specified as | | nonrheumatic | + + documented in this encounter Administered Medications + +--------+ +--------+------+------+ | Medication Order | MAR | Action | Dose | Rate | Site | | | Action | Date | | | | + +--------+ +--------+------+------+ | acetaminophen (TYLENOL) tablet | Given | 11/07/19 | 650 mg | | | | 650 mg 650 mg, Oral, EVERY 4 | | 19 10:43 | | | | | HOURS PRN, Pain, Starting Tue | | PM PDT | | | | | 11/06/18 at 1709 | | | | | | + +--------+ +--------+------+------+ +-------+ +--------+---+---+ | Given | 11/07/19 | 650 mg | | | | | 19 6:03 | | | | | | PM PDT | | | | +-------+ +--------+---+---+ +---+---+ | | | +---+---+ + +---------+ +------+-------+---+ | albumin 25% IVPB 25 g 25 g, | New Bag | 11/09/19 | 25 g | 100 | | | Intravenous, Administer over 60 | | 19 2:45 | | mL/hr | | | Minutes, DIALYSIS - PRN, | | PM PDT | | | | | Hypotension, Starting Little 11/08/18 | | | | | | | at 1253, For 2 doses, For BP less | | | | | | | than 100 mm Hg. DIALYSIS USE | | | | | | | ONLY - DISCONTINUE AFTER DIALYSIS | | | | | | | THERAPY IS COMPLETE, Treatment | | | | | | | date(s): 11/07/2018, 11/08/2018, | | | | | | | Dialysis | | | | | | + +---------+ +------+-------+---+ +---------+ +------+-------+---+ | New Bag | 11/09/19 | 25 g | 100 | | | | 19 1:30 | | mL/hr | | | | PM PDT | | | | +---------+ +------+-------+---+ +---+---+ | | | +---+---+ + +-------+ +-------+---+---+ | aspirin chewable tablet 81 mg | Given | 11/10/19 | 81 mg | | | | 81 mg, Oral, DAILY, First dose on | | 19 12:40 | | | | | 11/06/18 at 1600 | | PM PDT | | | | + +-------+ +-------+---+---+ +-------+ +-------+---+---+ | Given | 11/09/19 | 81 mg | | | | | 19 8:47 | | | | | | AM PDT | | | | +-------+ +-------+---+---+ | Given | 11/08/19 | 81 mg | | | | | 19 10:58 | | | | | | AM PDT | | | | +-------+ +-------+---+---+ +---+---+ | | | +---+---+ + +-------+ +-------+---+---+ | clopidogrel (PLAVIX) tablet 75 | Given | 11/10/19 | 75 mg | | | | mg 75 mg, Oral, DAILY, First | | 19 12:40 | | | | | dose on 11/07/18 at 0900 | | PM PDT | | | | + +-------+ +-------+---+---+ +-------+ +-------+---+---+ | Given | 11/09/19 | 75 mg | | | | | 19 8:47 | | | | | | AM PDT | | | | +-------+ +-------+---+---+ | Given | 11/08/19 | 75 mg | | | | | 19 10:57 | | | | | | AM PDT | | | | +-------+ +-------+---+---+ + +---+ | | | + +---+ | diphenhydrAMINE (BENADRYL) | | | injection 25 mg 25 mg, | | | Intravenous, EVERY 4 HOURS PRN, | | | Itching, Allergies, Starting Tue | | | 11/06/18 at 1955, For 6 doses | | + +---+ | | | + +---+ + +-------+ +---------+---+---+ | docusate-senna (SENOKOT-S) | Given | 11/08/19 | 2 | | | | 50-8.6 mg per tablet 2 tablet 2 | | 19 2:48 | tablets | | | | tablet, Oral, DAILY PRN, | | PM PDT | | | | | Constipation, Starting 11/07/18 | | | | | | | at 1407 | | | | | | + +-------+ +---------+---+---+ +---+---+ | | | +---+---+ + +-------+ +-------+---+---+ | furosemide (LASIX) injection 40 | Given | 11/09/19 | 40 mg | | | | mg 40 mg, Intravenous, 2 TIMES | | 19 8:46 | | | | | DAILY 0800 & 1600, First dose on | | AM PDT | | | | | 11/06/18 at 1600 | | | | | | + +-------+ +-------+---+---+ +-------+ +-------+---+---+ | Given | 11/08/19 | 40 mg | | | | | 19 4:26 | | | | | | PM PDT | | | | +-------+ +-------+---+---+ | Given | 11/08/19 | 40 mg | | | | | 19 10:59 | | | | | | AM PDT | | | | +-------+ +-------+---+---+ + +---+ | | | + +---+ | hydrALAZINE (APRESOLINE) | | | injection 10 mg 10 mg, | | | Intravenous, EVERY 4 HOURS PRN, | | | SBP > 180 mmHg, Starting Tue | | | 11/06/18 at 1716 | | + +---+ | | | + +---+ + +-------+ +--------+---+---+ | HYDROmorphone (DILAUDID) | Given | 11/07/19 | 0.5 mg | | | | injection 0.5 mg 0.5 mg, | | 19 11:13 | | | | | Intravenous, ONCE, 11/06/18 at | | PM PDT | | | | | 2315, For 1 dose | | | | | | + +-------+ +--------+---+---+ +---+---+ | | | +---+---+ + +-------+ +--------+---+---+ | HYDROmorphone (DILAUDID) | Given | 11/08/19 | 0.5 mg | | | | injection 0.5 mg 0.5 mg, | | 19 5:48 | | | | | Intravenous, ONCE, 11/07/18 at | | AM PDT | | | | | 0500, For 1 dose | | | | | | + +-------+ +--------+---+---+ +---+---+ | | | +---+---+ + +-------+ +--------+---+---+ | HYDROmorphone (DILAUDID) | Given | 11/09/19 | 0.5 mg | | | | injection 0.5 mg 0.5 mg, | | 19 9:19 | | | | | Intravenous, EVERY 4 HOURS PRN, | | PM PDT | | | | | Pain, Starting 11/07/18 at | | | | | | | 1540, Only to be used after have | | | | | | | tried oxycodone for pain and | | | | | | | ineffective, | | | | | | + +-------+ +--------+---+---+ +-------+ +--------+---+---+ | Given | 11/09/19 | 0.5 mg | | | | | 19 12:19 | | | | | | PM PDT | | | | +-------+ +--------+---+---+ +---+---+ | | | +---+---+ + +-------+ +------+---+---+ | HYDROmorphone (DILAUDID) | Given | 11/08/19 | 1 mg | | | | injection 1 mg 1 mg, | | 19 10:53 | | | | | Intravenous, ONCE, 11/07/18 at | | AM PDT | | | | | 1100, For 1 dose | | | | | | + +-------+ +------+---+---+ +---+---+ | | | +---+---+ + +-------+ +-------+---+---+ | losartan (COZAAR) tablet 25 mg | Given | 11/10/19 | 25 mg | | | | 25 mg, Oral, DAILY, First dose | | 19 12:40 | | | | | on Little 11/08/18 at 1000 | | PM PDT | | | | + +-------+ +-------+---+---+ +-------+ +-------+---+---+ | Given | 11/09/19 | 25 mg | | | | | 19 10:17 | | | | | | AM PDT | | | | +-------+ +-------+---+---+ +---+---+ | | | +---+---+ + +-------+ +-------+---+---+ | metoprolol succinate | Given | 11/09/19 | 50 mg | | | | (TOPROL-XL) ER tablet 50 mg 50 | | 19 8:48 | | | | | mg, Oral, DAILY, First dose on | | AM PDT | | | | | 11/07/18 at 0900, Tablet may be | | | | | | | cut where scored but do not | | | | | | | crush., | | | | | | + +-------+ +-------+---+---+ +-------+ +-------+---+---+ | Given | 11/08/19 | 50 mg | | | | | 19 10:57 | | | | | | AM PDT | | | | +-------+ +-------+---+---+ +---+---+ | | | +---+---+ + +-------+ +--------+---+---+ | nitroglycerin (NITROSTAT) SL | Given | 11/07/19 | 0.4 mg | | | | tablet 0.4 mg 0.4 mg, | | 19 7:43 | | | | | Sublingual, EVERY 5 MIN PRN, | | PM PDT | | | | | Chest pain, Starting 11/06/18 | | | | | | | at 1523, May give every 5 minutes | | | | | | | PRN chest pain, up to three | | | | | | | doses, and notify physician after | | | | | | | 2nd dose given - Do not give if | | | | | | | the SBP<100, | | | | | | + +-------+ +--------+---+---+ +-------+ +--------+---+---+ | Given | 11/07/19 | 0.4 mg | | | | | 19 7:26 | | | | | | PM PDT | | | | +-------+ +--------+---+---+ +---+---+ | | | +---+---+ + +-------+ +------+---+---+ | ondansetron (ZOFRAN ODT) | Given | 11/09/19 | 4 mg | | | | disintegrating tablet 4 mg 4 mg, | | 19 8:18 | | | | | Oral, EVERY 6 HOURS PRN, Nausea, | | PM PDT | | | | | Vomiting, Starting 11/06/18 at | | | | | | | 1717 | | | | | | + +-------+ +------+---+---+ +-------+ +------+---+---+ | Given | 11/08/19 | 4 mg | | | | | 19 5:53 | | | | | | AM PDT | | | | +-------+ +------+---+---+ + +---+ | | | + +---+ | ondansetron (ZOFRAN) injection | | | 4 mg 4 mg, Intravenous, EVERY 6 | | | HOURS PRN, Nausea, Vomiting, | | | Starting 11/07/18 at 1401 | | + +---+ | | | + +---+ + +-------+ +------+---+---+ | oxyCODONE (ROXICODONE) tablet 5 | Given | 11/10/19 | 5 mg | | | | mg 5 mg, Oral, EVERY 4 HOURS | | 19 8:54 | | | | | PRN, Pain, Moderate Pain, | | AM PDT | | | | | Starting 11/06/18 at 1955 | | | | | | + +-------+ +------+---+---+ +-------+ +------+---+---+ | Given | 11/10/19 | 5 mg | | | | | 19 3:58 | | | | | | AM PDT | | | | +-------+ +------+---+---+ | Given | 11/09/19 | 5 mg | | | | | 19 8:18 | | | | | | PM PDT | | | | +-------+ +------+---+---+ +---+---+ | | | +---+---+ + +-------+ +-------+---+---+ | pantoprazole (PROTONIX) DR | Given | 11/09/19 | 40 mg | | | | tablet 40 mg 40 mg, Oral, DAILY | | 19 8:47 | | | | | BEFORE BREAKFAST, First dose on | | AM PDT | | | | | 11/06/18 at 1730, Do not cut or | | | | | | | crush., Indication: GERD | | | | | | + +-------+ +-------+---+---+ +-------+ +-------+---+---+ | Given | 11/08/19 | 40 mg | | | | | 19 10:59 | | | | | | AM PDT | | | | +-------+ +-------+---+---+ +---+---+ | | | +---+---+ + +-------+ + +---+---+ | sevelamer carbonate (RENVELA) | Given | 11/10/19 | 1,600 mg | | | | tablet 1,600 mg 1,600 mg, Oral, | | 19 12:41 | | | | | 3 TIMES DAILY WITH MEALS, First | | PM PDT | | | | | dose on Mon11/06/18 at 1730, Do | | | | | | | not cut or crush tablets., | | | | | | + +-------+ + +---+---+ +-------+ + +---+---+ | Given | 11/09/19 | 1,600 mg | | | | | 19 5:32 | | | | | | PM PDT | | | | +-------+ + +---+---+ | Given | 11/09/19 | 1,600 mg | | | | | 19 8:47 | | | | | | AM PDT | | | | +-------+ + +---+---+ +---+---+ | | | +---+---+ + +-------+ +-------+---+---+ | valsartan (DIOVAN) tablet 40 mg | Given | 11/09/19 | 40 mg | | | | 40 mg, Oral, DAILY, First dose | | 19 8:49 | | | | | on 11/06/18 at 1730 | | AM PDT | | | | + +-------+ +-------+---+---+ +-------+ +-------+---+---+ | Given | 11/08/19 | 40 mg | | | | | 19 10:58 | | | | | | AM PDT | | | | +-------+ +-------+---+---+ +---+---+ | | | +---+---+ documented in this encounter
--- OUTSIDE RECORDS SUMMARY | ~2019-12-25 | XMS | Encounter Summary ---
Demographics + + + | Address | [address] | | | [place] [address] | + + + | Home Phone [...] Team Providers + +------+ + | Care Caddie Name | Role | Phone | + [...] | Nephrology | Diagnoses | Rufino | Stroemel, | | | | | Anemia in | Sudhakar D, | Jorje Obrien DO | | | | | chronic | MD [address] | [address] | | | | | kidney | [address] | [address] | | | | | disease([address] | [address] | [address] | | | | | [address] | [place], [place] | [place], | | | | | stage renal | [address] | [place] [address] | | | | | disease | Phone: | Phone: | | | | | ([facility]) | [phone] | [phone] | | | | | Infection | Fax: | Fax: | | | | | and | [phone] | [phone] | | | | | inflammatory | | | | | | | reaction | | | | | | | due to | | | | | | | peritoneal | | | | | | | dialysis | | | | | | | catheter | | | | | | | Procedures | | | | | | | CT OFFICE | | | | | | [...] ESRD (end stage | | 2013 | Visit | NEPHROLOGY [address] | M, DO [address] | renal disease) ([facility]) | | | | [address] | [address] [place] | (Primary Dx); | | | | [place], [place] | [place] [address] | Anemia in ESRD | | | | [address] | [phone] | (end-stage renal | | | | [phone] | | disease) ([facility]) | +--------+ + + + + [...] There fore she has had construction of tonto apache radio cephalic fistula in her left arm today. She was discharged to the outpatient clinic today for her scheduled treatment. She has tolerate d it very well. Outpatient Prescriptions Marked as Taking for the 02/24/14 encounter (Off-Site Visit) with Jorje Camp, DO Medication Sig Dispense Refill cholecalciferol [...] 2 weeks. I greatly ap preciate Dr. Blake Chavarria's help with her permanent AVF. [facility] documented in thi s encounter Plan of [...]
--- OUTSIDE RECORDS SUMMARY | ~2019-12-25 | XMS | Encounter Summary ---
Demographics + + + | Address | [address] | | | [place] [address] | + + + | Home Phone [...] Author + + + | Author | [facility] | | | and [place] | + + + | Organization | [facility] | | | [...] Team Providers + +------+ + | Care Outpatient Scheduler Name | Role | Phone | + +------+ + PCP | Unavailable | + +------+ + Encounter Details +--------+ + + + + | Date | Type | Department | Care Team | Description | +--------+ + + + + | 05/14/ | Hospital | [facility] | Michelle Benitez, | | | 2008 | Encounter | HOSPITAL EMERGENCY | MD [address] | | | | | [address] | [place], [place] | | | | | [address] [place], [place] | [address] | | | | | [address] | [phone] | | | | | [phone] | | | +--------+ + + + [...]
--- OUTSIDE RECORDS SUMMARY | ~2019-12-25 | XMS | Encounter Summary ---
Demographics + + + | Address | [address] | | | [place] [address] | + + + | Home Phone [...] | [facility] | | | and [place] | + + + | Organization | [facility] | | [...] Providers + +------+ + | Care Head Field Hockey Coach Name | Role | Phone | + +------+ + PCP | Unavailable | + +------+ + Reason for Visit + +--------+ + | Reason | Onset | Comments | | | Date | | + +--------+ + | Medication Refill | 04/18/ | | | | 2018 | | [...] [address] [place] | | | | | [place], [place] | [place] [place] [address] | | | | | [address] | [phone] | | | | | [phone] | | | +--------+--------+ + + + [...]
--- OUTSIDE RECORDS SUMMARY | ~2019-12-25 | XMS | Encounter Summary ---
Demographics + + + | Address | [address] | | | [place] [address] | + + + | Home Phone [...] Author | [facility] | | | and [place] | + + + | Organization | [facility] | | | [...] Providers + +------+ + | Care Hide And Skin Processing Worker Name | Role | Phone | [...] [address] [place] | | | | | [place], [place] | [place] [address] | | | | | [address] | [phone] | | | | | [phone] | | | +--------+ + + + [...]
--- OUTSIDE RECORDS SUMMARY | ~2019-12-25 | XMS | Encounter Summary ---
Demographics + + + | Address | [address] | | | [place] [address] | + + + | Home Phone [...] Author | [facility] | | | and [place] | + + + | Organization | [facility] | | | [...] Team Providers + +------+ + | Care Bookmobile Librarian Name | Role | Phone | [...] [address] [place] | | | | | [place], [place] | [place] [address] | | | | | [address] | [phone] | | | | | [phone] | | | +--------+ + + + [...] contact with the dialysis staff in clinical services consultant on a frequent basis. Outpatient Prescriptions Marked [...] did the charge nurse that she refus es. 4. She will be rechecked in 2 weeks. : [facility] documented in thi s encounter Plan of Treatment Not on filedocumented as of this encounter Visit Diagnoses + + | Diagnosis | + + | ESRD (end stage renal disease) (HCC) - Primary End stage renal disease | + + documented in this encounter"
--- OUTSIDE RECORDS SUMMARY | ~2019-12-25 | XMS | Encounter Summary ---
Demographics + + + | Address | [address] | | | [place] [address] | + + + | Home Phone [...] Team Providers + +------+ + | Care Collection Clerk Name | Role | Phone [...] [address] [place] | | | | | [place], [place] | [place] [address] | | | | | [address] | [phone] | | | | | [phone] | | | +--------+ + + + [...] Thania's request. Thania can be reached at [phone] signed by Merly Cortes RN at 05/21 3:09 PM PDTdocumented in this encounter Plan of Treatment Not on filedocumented as of this encounter Visit Diagnoses Not on filedocumented in this encounter"
--- OUTSIDE RECORDS SUMMARY | ~2019-12-25 | XMS | Encounter Summary ---
Demographics + + + | Address | [address] | | | [place] [address] | + + + | Home Phone [...] | Author | [facility] | | | and [place] | + + + | Organization | [facility] | | | and [...] Team Providers + +------+ + | Care Well Drill Operator Name | Role | Phone | + +------+ + | Tien Nicholson MD | PCP | | + +------+ + Encounter Details +--------+ + + + + | Date | Type | Department | Care Team | Description | +--------+ + + + + | 08/20/ | Hospital | [facility] | Ramón Dunn | Non-cardiogenic | | 2019 - | Encounter | [facility] | MD Juan Alberto [address] | pulmonary edema | | | | CARE FLOOR [address] [place], [place] | | | [address]/ | | [address] | [address] | | | 2018 | | [place], [place] | | | | | | [address] | | | | | | [phone] | | | +--------+ + + + [...] 1300 Date of Service: 08/23/18818 Status: Signed Water/Wastewater Engineer: Paty Kline DO (Physician) Patient: Dara Weldon [...] presented to the emergency d epartment of [facility] in [place] on 08/21 for dyspnea and underwent right t horacentesis with removal of 2.5L of fluid. Patient was sent home after the procedure. Muriel rtly thereafter patient became very short of breath and started having pinkish frothy sputum . Patient also developed right-sided chest pain over area of thoracentesis. She returned t o emergency department of [facility]. Patient was tachycardic and short of b reath but was saturating well on room air. Chest x-ray showed pulmonary edema of right bridgette g but left lung was reportedly normal. Patient was transferred to [facility] for acute hypoxic respiratory failure and acute [...] Nicholson MD [address] [place] [address] Medication List CHANGE how you take these [...] Note by Mitzy Schilling RN at 08/23/18 1306 Author: Mitzy Schilling RN Service: (none) Author Type: Registered Nurse Filed: 08/23/18 1306 Date of Service: 08/23/18 130 Status: Signed Water/Wastewater Engineer: Mitzy Schilling RN (Registered Nurse) Pt A&Ox4, [...] Filed: 08/23/18 1146 Date of Service: 08/23/18 114 Status: Signed Water/Wastewater Engineer: Patria Norman RN (Registered Nurse) CM placed call to Pts PCP and they will contact pt to schedule follow up appointment as gopal n as possible. CM placed call to [facility] Pulmonology to attempt to move pts appointment with Dr Alexander to a closer date, they will now see her in September rather November and AVS will be up dated. onver arturo Transaction, Provider Unknown - 08/23/2018 11:37 AM PDT Nurse Progress Note by Mitzy Schilling RN at 08/23/18 113 Author: Mitzy Schilling RN Service: (none) Author Type: Registered Nurse Filed: 08/23/18 1137 Date of Service: 08/23/181136 Status: Signed Water/Wastewater Engineer: Mitzy Schilling RN (Registered Nurse) Resumed care from ABRIL Carrazna. Agree with assessments thus far. Will continue to monitor. Mitzy Schilling RN onver arturo Transaction, Provider Unknown - 08/23/2018 2:34 AM PDT Nurse Progress Note by Hannah Madrigal RN at 08/23/184 Author: Hannah Madrigal RN Service: (none) Author Type: Registered Nurse Filed: 08/23/18529 Date of Service: 08/23/18233 Status: Signed Water/Wastewater Engineer: Hannah Madrigal RN (Registered Nurse) VSS, pt [...] 08/22/181827 Date of Service: 08/22/181823 Status: Signed Water/Wastewater Engineer: Paco Macedo RN (Registered Nurse) Patient is [...] Author: Brent Greenberg Service: (none) Author Type: Filed: 08/22/181808 Date of Service: 08/22/181800 Status: Signed Water/Wastewater Engineer: Brent Greenberg () rides attendant appreciated. Pt sitting up in bed. Pt [...] to find a grief support group in [facility] where she lives. Chp affirmed this as an excellent idea. Chp assured pt of continuing g ood thoughts for pt. Pt thanked p for visit. Chaplain Brent Greenberg aty Sutherland DO - 08/22/2018 2:55 PM PDT Progress Notes by Paty Kline DO at 08/22/18 8949 Author: Paty Kline DO Service: Hospitalist Author Type: Physician Filed: 08/22/181656 Date of Service: 08/22/181454 Status: Addendum Water/Wastewater Engineer: Paty Kline DO (Physician) Related Notes: Original Note by Paty Kline DO (Physician) filed at 08/22/18 585 [facility] Service: Hospitalist Progress Note Hospital Day: [...] May 2018 presented to emergency department of [facility] in [place] this morning and underwent right thoracentesis. Patient was sent home after the procedure. However patient became very short of breath and started havi ng pinkish frothy sputum. Patient also developed right-sided chest pain over area of thorac entesis. Hence she returned to emergency department of [facility]. Patient w as tachycardic and short of breath but was saturating well on room air. Chest x-ray showed pulmonary edema of right lung but left lung was normal as per ED physician." Patient was transferred to [facility] for monitoring as she will need HD [...] HSP (Henoch Schonlein purpura) ESRD on hemodialysis ([facility]) Hyperkalemia Moderate to severe pulmonary hypertension (HCC) Chronic 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) Dilated cardiomyopathy (HCC) Acute hypoxemic respiratory failure (HCC) Pleural effusion Chronic right-sided heart failure (HCC) Anemia in ESRD (end-stage renal disease) ([facility]) ASSESSMENT & PLAN Non-cardiogenic pulmonary edema due [...] Code Status: Full Code Paty Kline DO 08/22/2018 onversion Transact ion, Provider Unknown - 08/22/2018 9:29 AM PDTFormatting of this note might be different fr om the original. Case Management by Jessica Martell RN at 08/22/18928 Author: Jessica Martell RN Service: (none) Author Type: Registered Nurse Filed: 08/22/18932 Date of Service: 08/22/18928 Status: Signed Water/Wastewater Engineer: Jessica Martell RN (Registered Nurse) 08/22/18922 Discharge Planning Evaluation Admitting Diagnosis Non-cardiogenic pulmonary edema Readmission No Living Arrangements Alone Support Systems Friends/neighbors;Family members Type of Residence Private residence House type Apartment Bathrooms on 1st Floor 1-Full Independent with ADL's Yes Independent with Mobility Yes Home Care Services No Caregiver after Discharge No Mental Status Oriented Prior functional status independent Power of Net Fisher No Anticipated Discharge Plan Post Acute Care [...] concerns and states she uses hemodialysis at [facility] on Mon, Wed, Fri but denies using [...] Progress Note by Jaymie Tafoya RN at 08/22/18 0357 Author: Jaymie Tafoya RN Service: (none) Author Type: Registered Nurse Filed: 08/22/18 0436 Date of Service: 08/22/18433 Status: Signed Water/Wastewater Engineer: Jaymie Tafoya RN (Registered Nurse) Pt currently [...] Progress Note by Luz Pablo RN at 08/21/18 8467 Author: Luz Pablo RN Service: (none) Author Type: Registered Nurse Filed: 08/21/181831 Date of Service: 08/21/181828 Status: Signed Water/Wastewater Engineer: Luz Pablo RN (Registered Nurse) Complains of rib/upper abdomen pain. Medicated, pain improved. Ambulating in room. HD today , 2.7L off. HD in a.m. At 0600. End of shift review complete. aty Sutherland DO - 08/21/2018 7:24 AM PDT Progress Notes by Paty Kline DO at 08/21/18723 Author: Paty Kline DO Service: Hospitalist Author Type: Physician Filed: 08/21/18 2320 Date of Service: 08/21/18723 Status: Signed Water/Wastewater Engineer: Paty Kline DO (Physician) [facility] Service: Hospitalist Progress Note Hospital Day: [...] May 2018 presented to emergency department of [facility] in [place] this morning and underwent right thoracentesis. Patient was sent home after the procedure. However patient became very short of breath and started havi ng pinkish frothy sputum. Patient also developed right-sided chest pain over area of thorac entesis. Hence she returned to emergency department of [facility]. Patient w as tachycardic and short of breath but was saturating well on room air. Chest x-ray showed pulmonary edema of right lung but left lung was normal as per ED physician." Patient was transferred to [facility] for monitoring as she will need HD [...] Note by Anahy Springer RN at 08/21/18 0504 Author: Anahy Springer RN Service: (none) Author Type: Registered Nurse Filed: 08/21/18 0527 Date of Service: 08/21/18503 Status: Addendum Water/Wastewater Engineer: Anahy Springer RN (Registered Nurse) Related Notes: Original Note by Anahy Springer RN (Registered Nurse) filed at 08/21/18 0505 VSS. Pt c/o pain x2, pt medicated w/PRN pain meds per MAR, relief noted, and appears to be resting comfortably at this time. No acute changes from previous shift. Bed in low locked position. Call light within reach. End of shift review completed by this RN. Anahy Springer RN onver arturo Transaction, Provider Unknown - 08/20/2018 7:02 PM PDT Progress Notes by Kacy Moody RPH at 08/20/181901 Author: Kacy Moody RPH Service: Pharmacy Author Type: Pharmacist Filed: 08/20/181901 Date of Service: 08/20/181901 Status: Signed Water/Wastewater Engineer: Kacy Moody RPH (Pharmacist) Clinical Pharmacy Note: Renal Monitoring Serum creatinine: 8.68 mg/dL (H) 08/20/18 174 Estimated creatinine clearance: 9.9 mL/min (A) Pharmacy dosing for renal function per Dr. Dunn Currently there are no medications needing to be adjusted. Pharmacy will continue to monito r for changes in medication orders and in renal function and adjust accordingly. Kacy Moody Pharmacist 08/20/2018 7:02 PM docume nted in this encounter H&P Notes Ramón Dunn MD - 08/20/2018 5:50 PM PDTFormatting of this note might be differe nt from the original. H&P by Ramón Dunn MD at 08/20/181749 Author: Ramón Dunn MD Service: Hospitalist Author Type: Physician Filed: 08/20/181821 Date of Service: 08/20/181749 Status: Signed Water/Wastewater Engineer: Ramón Dunn MD (Physician) [facility] Service: Hospitalist Admission History & Physical Date of Admission: 08/20/2018 Requesting Physician: Dr. Villa, [facility] ED. Reason for Admission: Non cardiogenic pulmonary edema after thoracentesis. History Obtained From: patient CHIEF COMPLAINT: SOB, coughing up pinkish phlegm and right sided chest pain after right th oracentesis. HISTORY OF PRESENT ILLNESS The patient is 23 y.o. female with significant past medical history of end-stage renal dise ase on hemodialysis every Monday and Monday and sees Dr. Anguiano. Her other problem s are Henoch-Schonlein Purpura, recurrent bilateral pleural effusions requiring pediatric th oracentesis, combined systolic and diastolic congestive heart failure with ejection fraction of 20 to 25% per echocardiogram of May 2018 presented to emergency department of [facility] in [place] this morning and underwent right thoracentesis. Patient was s ent home after the procedure. However patient became very short of breath and started havin g pinkish frothy sputum. Patient also developed right-sided chest pain over area of thorace ntesis. Hence she returned to emergency department of [facility]. Patient wa s tachycardic and short of breath but was saturating well on room air. Chest x-ray showed p ulmonary edema of right lung but left lung was normal as per ED physician. S patient needed monitoring the hospital and was scheduled to have hemodialysis today and [facility] does not have facility for inpatient hemodialysis hence she was transferred to this hospital. Cu rrently patient is comfortable and has minimal shortness of breath and is able to complete s entences without any difficulty. She still complains of right-sided pain but she is no more coughing up pinkish frothy sputum. REVIEW OF SYSTEMS Review of Systems Constitutional: Negative. HENT: Negative. Eyes: Negative. Respiratory: Positive for shortness of breath. Cardiovascular: Positive for chest pain. Negative for palpitations and leg swelling. Gastrointestinal: Positive for nausea. Endocrine: Negative. Genitourinary: Positive for decreased urine volume. Musculoskeletal: Negative. Skin: Negative. Allergic/Immunologic: Negative. Neurological: Negative. Hematological: Negative for adenopathy. Bruises/bleeds easily. Psychiatric/Behavioral: Negative. Past Medical History Diagnosis Date Anemia Asthma Clotted dialysis access (HCC) 2014 Congestive heart failure (HCC) ESRD (end stage renal disease) (HCC) HSP (Henoch-Schonlein purpura) nephritis (HCC) Hypertension Past Surgical History Procedure Laterality Date ABDOMINAL SURGERY AV FISTULA PLACEMENT AV FISTULA PLACEMENT Left 04/08/2014 Procedure: AV FISTULA; Surgeon: Rik Simon MD; Location: [facility] MAIN OR; Service: Vascula r; Laterality: Left; cephalic AV FISTULA REPAIR Left 03/07/2014 Procedure: AV FISTULA - GRAFT REPAIR/REVISION; Surgeon: Rik Simon MD; Location: [facility] IN OR; Service: Vascular; Laterality: Left; DECLOT GRAFT Left 03/07/2014 Procedure: GRAFT - DECLOT; Surgeon: Rik Simon MD; Location: [facility] OR; Service: Vas cular; Laterality: Left; DIALYSIS FISTULA CREATION N/A 04/08/2014 Procedure: DIALYSIS CATHETER - INSERTION; Surgeon: Rik Simon MD; Location: [facility] OR ; Service: Vascular; Laterality: N/A; tunneled catheter LAPAROSCOPIC PERITONEAL DIALYSIS CATHETER INSERTION x2 LAPAROSCOPIC PERITONEAL DIALYSIS CATHETER INSERTION Right 07/2013 current dialysis access MWF dialysis RENAL BIOPSY RENAL BIOPSY Left 2003 SUPERFICIALIZATION OF AV FISTULA Left 06/24/2014 Procedure: AV FISTULA - SUPERFICIALIZATION; Surgeon: Rik Simon MD; Location: [facility] OR; Service: Vascular; Laterality: Left; Allergies Allergen Reactions Fentanyl Itching Iodinated Diagnostic Agents Itching Pt c/o face itching during fistulagram Morphine Rash Ritalin [Methylphenidate Hcl] Other (See Comments) Patient says skin was crawling Tape [Adhesive Tape] Rash Use silk tape only Prescriptions Prior to Admission Medication Sig Dispense Refill Last Dose ipratropium-albuterol (DUO-NEB) 0.5-2.5 mg/3mL Take 3 mLs by nebulization. Taking at Unknown time ondansetron (ZOFRAN) 4 MG tablet Take 4 mg by mouth 3 (three) times daily as needed for Nausea. Taking at Unknown time pantoprazole (PROTONIX) 40 MG tablet Take 40 mg by mouth every morning before breakfast . 08/19/2018 at Unknown time promethazine (PHENERGAN) 25 MG [...] 180 tablet 2 Taking at Unknown time clopidogrel (PLAVIX) 75 MG tablet Take 75 mg by mouth daily. Indications: Treatment to Prevent a Blood Clot in a Vascular Stent 08/19/2018 metoprolol (TOPROL-XL) 50 MG 24 hr tablet Take 1 tablet by mouth daily. (Patient taking differently: Take 50 mg by mouth nightly.) 30 tablet 2 08/19/2018 predniSONE (DELTASONE) 10 MG tablet Take 6 tablets by mouth daily with breakfast. Take 6 tablets x 6 days; followed by 5tabs x 5 days, 4 tabs x 4 days, 3 tabs x 3, 2 tabs x 2 and 1 tab x 1 day (Patient not taking: Reported on 08/20/2018) 90 tablet 0 Not Taking at Unknown time valsartan (DIOVAN) 40 MG tablet Take 1 tablet by mouth daily. 30 tablet 11 08/19/2018 Family History Problem Relation Age of Onset [...] on file Social History Narrative Lives in [facility], [place], 2 wks ago fell at home , tripped , no loc , no injuries, full co de History Smoking Status Former Smoker Packs/day: 0.50 Years: 2.00 Quit date: 06/28/2016 Smokeless Tobacco Never Used History Alcohol Use No PHYSICAL EXAM Vital Signs: BP (!) 159/113 (BP Location: Right upper arm) | Pulse 97 | Temp 98.2 F (36.8 C) (Oral ) | Resp 16 | Ht 1.702 m (5' 7.01") | ? No | BMI 20.09 kg/m Physical Exam Constitutional: She is oriented to person, place, and time. She appears well-developed and well-nourished. No distress. HENT: Head: Normocephalic. Mouth/Throat: No oropharyngeal exudate. Eyes: Pupils are equal, round, and reactive to light. No scleral icterus. Neck: Neck supple. No JVD present. Cardiovascular: Regular rhythm and intact distal pulses. Exam reveals no gallop and no fri ction rub. No murmur heard. HR 100 Pulmonary/Chest: Effort normal. No respiratory distress. She has no wheezes. Diminished air entry right base. Abdomina/Gl: Soft. Bowel sounds are normal. She [...] noted. She is not diaphoretic. No erythema. There is pa llor. Small bruises over right leg. Psychiatric: She [...] 181 (H) 07/21/2018 EGFR 10 (L) 07/24/2018 PROBLEM LIST Principal Problem: Non-cardiogenic pulmonary edema Active Problems: HSP (Henoch Schonlein purpura) ESRD on hemodialysis (HCC) Moderate to severe pulmonary hypertension (HCC) Chronic 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) Pleural effusion ASSESSMENT & PLAN Non-cardiogenic pulmonary edema due to reexpansion lung injury as a result of thoracentesis . I doubt congestive heart failure decompensation. Patient is feeling better now. She is saturating well on room air and does not appear to be in any respiratory distress. But she still has mild tachycardia. Will monitor patient closely and repeat chest x-ray tomorrow mo rning. End-stage renal disease. She receives hemodialysis every Monday, Monday and Monday. I spoke with Dr. Duarte. Will check BMP and if she has significant hyperkalemia, metabolic ac idosis, then she will require hemodialysis tonight. Otherwise will wait for tomorrow and sh e will be dialyzed early in the morning. Recurrent bilateral thoracentesis. Likely due to severe congestive heart failure. Patient has had paracentesis 3 times on the right side and twice on the left side. We will try to avoid paracentesis as much as possible. Severe combined systolic and diastolic congestive heart failure. She is on valsartan, meto prolol and will continue both. Patient also gets hemodialysis 3 times a week. No sign of f luid overload at this stage. Disposition: Inpatient. Code Status: Full Code Primary Care Physician: TIEN Dunn MD 08/20/2018 documented in this encounter Consult Notes Cliff Duarte MD - 08/21/2018 3:26 PM PDT Consult* by Cliff Duarte MD at 08/21/181525 Author: Cliff Duarte MD Service: Nephrology Author Type: Physician Filed: 08/21/18 1643 Date of Service: 08/21/181525 Status: Signed Water/Wastewater Engineer: Cliff Duarte MD (Physician) [id number]/8107-1 Hospital Day: LOS: 1 day History Obtained From: patient, chart review CHIEF COMPLAINT: I was short of breath. HISTORY OF PRESENT ILLNESS: Dara Weldon is a 23 y.o. woman with ESRD who follows up with Dr. TIEN Trotter as primary care provider. She is normally dialyzed on a Monday, Monday, Monday schedul e using left upper extremity AV fistula. She is to see Dr. Trent Camp but has orlinl y switched to Dr. Anguiano. She also has combined diastolic/systolic congestive heart failure and was recently hospital ized at [facility] with hypervolemia and right pleural effusion. She was also positive for parainf luenza. She again presented with shortness of breath to outside hospital and had thoracentesis done which is followed by worsening of shortness of breath necessitating return to the hospital. Chest x-ray done at outside facility revealed findings consistent with reexpansion pulmonar y edema. She was due for dialysis yesterday and due to inability to arrange for dialysis she was tra nsferred to [facility]. Nephrology consultation was requested by Dr. Dunn for evaluation and management of ESRD Associated with: fluid electrolyte acid base imbalances including hypervolemia. She came to [facility] late last night and could not be dialyzed in time and is getting her dialys is today. Records from [facility] reviewed. Last outpatient HD was Monday. She has a long-standing history of nonadherence to dietary salt/fluid/phosphorus intake. PMH, PSH, Social history reviewed in chart. [...] negative. Examination: Vitals as noted General appearance: NAD, conversant Neck: FROM, supple Lungs: Clear to auscultation CV: RRR, no MRGs; normal carotid upstroke and amplitude without bruits Abdomen: Soft, non-tender; no masses or HSM Extremities: No peripheral edema or digital cyanosis Skin: no rash, lesions or ulcers Psych: Pleasant demeanor. Neurologic: Alert and oriented to person, place and time. No asterixis. Dialysis access: Left UE AVF with no evidence of malfunction/inflammation. Prior to Admission medications Medication Sig Start Date End Date Taking? Authorizing Provider ipratropium-albuterol (DUO-NEB) 0.5-2.5 mg/3mL Take 3 mLs by nebulization. Yes Historical Provider ondansetron (ZOFRAN) 4 MG tablet Take 4 mg by mouth 3 (three) times daily as needed for Gm sea. Yes Historical Provider pantoprazole (PROTONIX) 40 MG tablet Take 40 mg by mouth every morning before breakfast. Yes Historical Provider promethazine (PHENERGAN) 25 MG tablet Take 1 tablet by mouth every 6 (six) hours as needed for Nausea or Vomiting (non-resposive to zofran). 07/24/18 Yes Usha Martínez MD sevelamer (RENVELA) 800 MG tablet Take 2 tablets by mouth 3 (three) times daily with meals. Patient taking differently: Take 2,400 mg by mouth 3 (three) times daily with meals. 9 06/01/19 Yes aDrell Kowalski MD clopidogrel (PLAVIX) 75 MG tablet Take 75 mg by mouth daily. Indications: Treatment to Prev ent a Blood Clot in a Vascular Stent Historical Provider metoprolol (TOPROL-XL) 50 MG 24 hr tablet Take 1 tablet by mouth daily. Patient taking differently: Take 50 mg by mouth nightly. 07/24/18 07/24/19 Usha Martínez MD predniSONE (DELTASONE) 10 MG tablet Take 6 tablets by mouth daily with breakfast. Take 6 ta blets x 6 days; followed by 5tabs x 5 days, 4 tabs x 4 days, 3 tabs x 3, 2 tabs x 2 and 1 ta b x 1 day Patient not taking: Reported on 08/20/2018 07/24/18 Usha Martínez MD valsartan (DIOVAN) 40 MG tablet Take 1 tablet by mouth daily. 06/14/18 06/14/19 Carolina Mahmood DO Vital Signs: BP 118/74 | Pulse 70 | Temp 97.4 F (36.3 C) (Oral) | Resp 16 | Ht 1.702 m (5' 7") | Wt 71.4 kg (157 lb 6.5 oz) | SpO2 100% | ? No | BMI 24.65 kg/m Data evaluation: Lab Results Component Value Date BUN 79 (H) 08/21/2018 CREATININE 9.6 (H) 08/21/2018 EGFR 5 (L) 08/21/2018 NA 138 08/21/2018 K 5.4 (H) 08/21/2018 CL 103 08/21/2018 CO2 22 (L) 08/21/2018 CA 9.1 08/21/2018 PHOS 7.3 (H) 08/21/2018 MG 2.8 (H) 08/21/2018 ALB 4.0 08/20/2018 HGB 11.7 08/21/2018 Lab Results Component Value Date ANIONGAP 18 08/21/2018 Hepatic Function Panel: Lab Results Component Value Date PROT 7.2 07/21/2018 ALB 4.0 08/20/2018 BILITOT 1.1 07/21/2018 BILIDIR 0.7 (H) 07/21/2018 ALP 154 (H) 07/21/2018 AST 159 (H) 07/21/2018 ALT 181 (H) 07/21/2018 X-ray Chest Frontal And Lateral 08/21/2018 persistent infiltrate/atelectasis in the right mi d to lower lung zone extending through the upper, middle, and lower lobes, with small right effusion and elevation right hemidiaphragm. Echocardiogram 06/12/2018 showed ejection fraction of 30 to 35% with diastolic dysfunction, m oderate mitral regurgitation, severe tricuspid regurgitation and severe pulmonary hypertensi on. Assessment and Recommendations: Dara Weldon is a 23 y.o. woman with ESRD as per PMH who is admitted with flash pul monary edema after thoracentesis. She is clinically and radiologically hypervolemic with baseline systolic/diastolic CHF and poor adherence to dietary salt/fluid restrictions. Mild hyperkalemia, hypermagnesemia, hyperphosphatemia all likely reflect dietary indiscreti on. Anemia is mild and should not be a precipitating cause of her decompensated congestive hear t failure. BP is OK. We will dialyze her today and tomorrow again. Continue current medications including ARB/beta-lia. I discussed with her the concept of ESRD and interaction of BP/volume status/medications in preserving homeostasis with [...] Plan of care was discussed with Dr. Dunn on admission. I thank Dr Dunn for giving me the opportunity to take part in her care with multiple com plex medical problems. Do not hesitate to contact me if you have any questions. CLIFF DUARTE MD 08/21/2018 She was seen earlier in the day and charting was completed later after rounds. Dictation software, [employer], was used which may contain error for similar sounding words. Pe rsonal communication is requested for any clarification. Prognosis is guarded in view of multiple comorbid illnesses and ESRD including but not limi wilmer to . clopidogrel 75 mg Oral Daily metoprolol 50 mg Oral Nightly pantoprazole 40 mg Oral QAM AC sevelamer 2,400 mg Oral TID WC sodium chloride (PF) 10 mL Intravenous Q8H valsartan 40 mg Oral Daily documented in this en counter Miscellaneous Notes Plan of Care - Conversion Transaction, Provider Unknown - 08/23/2018 8:19 AM PDT Plan of Care by Tere García RN at 08/23/18818 Author: Tere García RN Service: (none) Author Type: Registered Nurse Filed: 08/23/18818 Date of Service: 08/23/18818 Status: Signed Water/Wastewater Engineer: Tere García RN (Registered Nurse) Problem: Pain Goal: Patient's pain/discomfort is manageable Assess and monitor patient's pain using appropriate pain scale. Collaborate with interdisci plinary team and initiate plan and interventions as ordered. Re-assess patient's pain level approximately 1-2 hours after pain management intervention. Premedicate as needed. Outcome: Progressing Complaints of 9/10 right lung, abdominal pain. [place] given Problem: Safety Goal: Patient will be injury [...] policy, and non-skid footwear provided. Outcome: Progressing Remains free of falls. VSS. Calls appropriately. lan o f Care - Conversion Transaction, Provider Unknown - 08/22/2018 9:38 PM PDTFormatting of thi s note might be different from the original. Plan of Care by Hannah Madrigal RN at 08/22/182137 Author: Hannah Madrigal RN Service: (none) Author Type: Registered Nurse Filed: 08/22/182137 Date of Service: 08/22/182137 Status: Signed Water/Wastewater Engineer: Hannah Madrigal RN (Registered Nurse) Problem: Knowledge Deficit Goal: Patient/family/caregiver demonstrates understanding of disease process, treatment sadia n, medications, and discharge instructions Complete learning assessment and assess knowledge base. Outcome: Adequate for Discharge Pt familiar with disease process and is knowledgeable on how to care for self. lan o f Care - Conversion Transaction, Provider Unknown - 08/22/2018 10:53 AM PDTFormatting of thi s note might be different from the original. Plan of Care by Paco Macedo RN at 08/22/181052 Author: Paco Macedo RN Service: (none) Author Type: Registered Nurse Filed: 08/22/181 Date of Service: 08/22/181052 Status: Signed Water/Wastewater Engineer: Paco Macedo RN (Registered Nurse) Daily Care Daily care needs are met Progressing Daily care needs are assessed and monitored throughout shift. Patient is A&OX4, VSS, c/o pa in see MAR. Patients plan is to be discharged today. Patient is currently resting in bed rec eiving dialysis. Patient is IND in the room and utlilzes call light appropriately. Safety Patient will be injury free during hospitalization Progressing lan o f Care - Conversion Transaction, Provider Unknown - 08/21/2018 8:37 PM PDTFormatting of thi s note might be different from the original. Plan of Care by Jaymie Tafoya RN at 08/21/182036 Author: Jaymie Tafoya RN Service: (none) Author Type: Registered Nurse Filed: 08/21/182036 Date of Service: 08/21/182036 Status: Signed Water/Wastewater Engineer: Jaymie Tafoya RN (Registered Nurse) Problem: Pain Goal: Patient's pain/discomfort is manageable Assess and monitor patient's pain using appropriate pain scale. Collaborate with interdisci plinary team and initiate plan and interventions as ordered. Re-assess patient's pain level approximately 1-2 hours after pain management intervention. Premedicate as needed. Outcome: Progressing Pain assessed Q4 hours and medicated as available. Problem: Safety Goal: Patient will be injury [...] policy, and non-skid footwear provided. Outcome: Progressing Bed low and locked. Call light in reach. Hourly rounding performed. lan o f Care - Conversion Transaction, Provider Unknown - 08/21/2018 12:42 PM PDTFormatting of thi s note might be different from the original. Plan of Care by Luz Pablo RN at 08/21/18 1242 Author: Luz Pablo RN Service: (none) Author Type: Registered Nurse Filed: 08/21/181241 Date of Service: 08/21/181241 Status: Signed Water/Wastewater Engineer: Luz Pablo RN (Registered Nurse) Pain Goal: Patient s [...] band on, uncluttered walking paths in room, a dequate room lighting, call light and overbed table within reach, bed in low position, wheel s locked, side rails up per policy, and non-skid footwear provided. Outcome: Progressing Patient will remain free from falls during hospital visit. Bed in lowest position. Room meenakshi e from clutter. Call light within reach. Patient uses call light appropriately. lan o f Care - Conversion Transaction, Provider Unknown - 08/20/2018 9:58 PM PDTFormatting of thi s note might be different from the original. Plan of Care by Anahy Springer RN at 08/20/182157 Author: Anahy Springer RN Service: (none) Author Type: Registered Nurse Filed: 08/20/182157 Date of Service: 08/20/182157 Status: Signed Water/Wastewater Engineer: Anahy Springer RN (Registered Nurse) Problem: Safety Goal: Patient [...] policy, and non-skid footwear provided. Outcome: Progressing Bed in low locked position, call light within reach, hourly rounding for pt needs. lan o f Care - Conversion Transaction, Provider Unknown - 08/20/2018 5:49 PM PDTFormatting of thi s note might be different from the original. Plan of Care by Delilah Alejandro RN at 08/20/181748 Author: Delilah Alejandro RN Service: (none) Author Type: Registered Nurse Filed: 08/20/181748 Date of Service: 08/20/181748 Status: Signed Water/Wastewater Engineer: Delilah Alejandro RN (Registered Nurse) Problem: Safety Goal: Patient [...] policy, and non-skid footwear provided. Outcome: Progressing Call light is within reach. Bed wheels locked and in low position. Calls appropriately. docume nted in this encounter Plan of [...] is noted. | | | Signed by: Eilza Khan, Lee Sign Date/Time: 08/22/2018 10:31 PM [...] | | | | | | [address];[place], [place] | | | | | | [address] | | | | + + + [...] by: Akash | | | Quang Kay Date/Time: 08/21/2018 7:44 AM | | + [...] +---- + + + | Non- | 3.10 (L) | 3.7 0 - [...] LAB | | | | performed at [facility], [address] | | | | | | [address], | | | | | | [place] [address] | | | | | |MACRO | | | | | |Testing performed at [facility], [address] [place] [address] | | | | | | | [...] | | | | performed at [facility], [address] | | LAB | | | | [place], | | | | | | [place] [address] | | | | + + + [...] | | | | performed at [facility], [address] | | LAB | | | | [place], | | | | | | [place] [address] | | | | + + + [...] | | | | | | MDRD IDME traceable | | | | | | equation.Testing | | | | | | performed at [facility], [address] | | | | | | [facility], | | | | | | [place] [address] | | | | + + + [...] + + + + | Non- | 3.37 (L) | 3.70 - 5.10 [...] EXTERNAL | | | | performed at [facility];[address] | | LAB | | | | [address];[place], [place] | | | | | | [address] | | | | + + + [...] | performed at [facility];[address] | | | | | | [facility];[place], [place] | | | | | | [address] | | | | + + + [...]
--- OUTSIDE RECORDS SUMMARY | ~2019-12-25 | XMS | Encounter Summary ---
Demographics + + + | Address | [address] | | | [place] [address] | + + + | Home Phone [...] Team Providers + +------+ + | Care Telecommunication Lines Repairer Name | Role | Phone | + +------+ + | Jonathan Alonso MD | PCP | | + +------+ + Reason for Visit + +--------+ + | Reason | Onset | Comments | | | Date | | + +--------+ + | Congestive Heart | 12/19/ | Reviewed for CHF Quality Measures | | Failure | 2019 | | + +--------+ + Encounter Details +--------+ + + + + | Date | Type | Department | Care Team | Description | +--------+ + + + + | 12/19/ | Telephone | [facility] | George Torres RN | Congestive Heart | | 2019 | | [address] | | Failure (Reviewed | | | | [place] | | for CHF Quality | | | | [address] | | Measures) | | | | [phone] | | | +--------+ + + + [...] this encounter Miscellaneous Notes Telephone Encounter - George Torres RN - 12/19/2018 3:02 PM PDTReviewed for CHF Quality Measures documented in t his encounter Plan of Treatment Not on filedocumented as of this encounter Visit Diagnoses Not on filedocumented in this encounter"
--- OUTSIDE RECORDS SUMMARY | ~2019-12-25 | XMS | Encounter Summary ---
Demographics + + + | Address | [address] | | | [place] [address] | + + + | Home Phone [...] [facility] | | | and [place] | + + + | Organization | [facility] | | | [...] Team Providers + +------+ + | Care Owner Operator Tanker Truck Driver Name | Role | Phone [...] [address] | | | | | ([facility]) | [address] | [address] | | | | | Anemia in | [place], [place] | [place], | | | | | ESRD | [address] | [place] [address] | | | | | (end-stage | Phone: | Phone: | | | | | renal | [phone] | [phone] | | | | | disease) | Fax: | Fax: | | | | | ([facility]) | [phone] | [phone] | | | | | Procedures | [...] DO [address] | renal disease) ([facility]) | | | | [address] | [address] [place] | (Primary Dx) | | | | [place], [place] | [place] [address] | | | | | [address] | [phone] | | | | | [phone] | | | +--------+ + + + [...] is seen on the MWF shift at [place], [place]. 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 Sadly, efforts at counseling by multiple caregivers including Dr. Ibarra, myself, Staff Nurs , and Clinic CRATE REPAIRER have failed to reach her. She continues [...] Will recheck her in 2 weeks. : Renton Fina Joy M.D., Pediatric Nephrology, [facility] documented in t his encounter Plan of Treatment Not on filedocumented as of this encounter Visit Diagnoses + + | Diagnosis | + + | ESRD (end stage renal disease) (HCC) - Primary End stage renal disease | + + documented in this encounter"
--- OUTSIDE RECORDS SUMMARY | ~2019-12-25 | XMS | Encounter Summary ---
Demographics + + + | Address | [address] | | | [place] [address] | + + + | Home Phone [...] + + + | Author | [facility] | | | and [place] | + + + | Organization | [facility] | | | and [...] Team Providers + +------+ + | Care President Celebrity Acquistion Name | Role | Phone | + +------+ + PCP | Unavailable | + +------+ + Encounter Details +--------+ + + + + | Date | Type | Department | Care Team | Description | +--------+ + + + + | 07/10/ | Hospital | [facility] | | | | 2008 - | Encounter | [facility] | | | | | | [address] [place] | | | | 08/03/ | | [place] [address] | | | | 2008 | | [phone] | | | +--------+ + + + [...]
--- OUTSIDE RECORDS SUMMARY | ~2019-12-25 | XMS | Encounter Summary ---
Demographics + + + | Address | [address] | | | [place] [address] | + + + | Home Phone [...] Author | [facility] | | | and [place] | + + + | Organization | [facility] | | [...] Team Providers + +------+ + | Care Joint Machine Operator Name | Role | Phone | + +------+ + | Jonathan Alonso MD | PCP | | + +------+ + Encounter Details +--------+ + + + + | Date | Type | Department | Care Team | Description | +--------+ + + + + | 10/17/ | Hospital | [facility] | Nikita, | ESRD (end stage | | 2019 - | Encounter | [facility] | MD Naresh [address] | renal disease) | | | | CARE FLOOR [address] | ([facility]); Dilated | | 10/22/ | | [address] | [place] [address] | cardiomyopathy | | 2019 | | [place], [place] | [phone] | ([facility]); | | | | [address] | | Non-cardiogenic | | | | [phone] | Gerber Pearson MD | pulmonary edema; | | | | | [address] | Anemia in ESRD | | | | | [place] [address] | (end-stage renal | | | | | [phone] | disease) ([facility]); | | | | | [...] | | | | | ([facility]); At high risk | | [...] might be different fr om the original. [facility] Service: Hospitalist Physician Discharge Summary Patient [...] is to follow up with her regular stuffing machine operator, Dr. Hurtado. DISCHARGE DIAGNOSES: 1. End-stage [...] Left; Surgeon: Blake Chavarria MD ; Location: [facility] MAIN OR AV FISTULA REPAIR Left 03/07/2014 Procedure: AV FISTULA - GRAFT REPAIR/REVISION; Surgeon: Rik Simon MD; Location: [facility] IN OR; Service: Vascular; Laterality: Left; biopsy of kidney age 10 DIALYSIS FISTULA CREATION 04/08/2014 Procedure: DIALYSIS CATHETER - INSERTION; Surgeon: Rik Simon MD; Location: [facility] MAIN OR ; Service: Vascular; Laterality: N/A; tunneled catheter.br hemodialysis catheter KIDNEY BIOPSY Left 2003 OTHER SURGICAL HISTORY LAPAROSCOPIC PERITONEAL DIALYSIS CATHETER INSERTION - x2 OTHER SURGICAL HISTORY Right 07/2013 LAPAROSCOPIC PERITONEAL DIALYSIS CATHETER INSERTION - current dialysis access MWF dialysis OTHER SURGICAL HISTORY Left 06/24/2014 SUPERFICIALIZATION OF AV FISTULA - Procedure: AV FISTULA - SUPERFICIALIZATION; Surgeon: Emanuel Simon MD; Location: [facility] MAIN OR; Service: Vascular; Laterality: Left; OTHER SURGICAL HISTORY Left 04/08/2014 AV FISTULA PLACEMENT - Procedure: AV FISTULA; Surgeon: Rik Simon MD; Location: [facility] OR; Service: Vascular; Laterality: Left; cephalic OTHER SURGICAL HISTORY Left 03/07/2014 DECLOT GRAFT - Procedure: GRAFT - DECLOT; Surgeon: Rik Simon MD; Location: [facility] MAIN OR ; Service: Vascular; Laterality: [...] have: Continued coughing Fever Date Last Reviewed: 02/04/201619991751-7449 [employer]. [address] [place] [address]. All righ ts reserved. This information is [...] The AV fistula is the access of oice. This is because there are typically [...] by your healthcare provider Date Last Reviewed: 12/05/201519998785-0286 [employer]. [address] [place] [address]. All righ ts reserved. This information is [...] | | | renal disease) ([facility]) | protocol | | | [...] + + +---------+ + + | B Dcdbqmr-G-Vqhqq | Take 1 tablet by | | [...] with family/friends. Nereida Coburn RN 10/22/18 17:26 IAAkoum , René Mckeon MD - 10/22/2018 6:36 AM PDTFormatting of [...] I have discussed the case with the SPECIAL DIET COOK. I agree with his findings & documentation. [...] Carrasco MD - 10/21/2018 3:00 PM PDT [facility] Service: NEPHROLOGY Progress Note Dara Weldon 23 y.o. [id number] female Jonathan Alonso MD Hospital Day: [...] Left; Surgeon: Blake Chavarria MD ; Location: [facility] MAIN OR AV FISTULA REPAIR Left 03/07/2014 Procedure: AV FISTULA - GRAFT REPAIR/REVISION; Surgeon: Rik Simon MD; Location: [facility]; Service: Vascular; Laterality: Left; biopsy of kidney age 10 DIALYSIS FISTULA CREATION 04/08/2014 Procedure: DIALYSIS CATHETER - INSERTION; Surgeon: Rik Simon MD; Location: [facility] OR ; Service: Vascular; Laterality: N/A; tunneled catheter.br hemodialysis catheter KIDNEY BIOPSY Left 2003 OTHER SURGICAL HISTORY LAPAROSCOPIC PERITONEAL DIALYSIS CATHETER INSERTION - x2 OTHER SURGICAL HISTORY Right 07/2013 LAPAROSCOPIC PERITONEAL DIALYSIS CATHETER INSERTION - current dialysis access MWF dialysis OTHER SURGICAL HISTORY Left 06/24/2014 SUPERFICIALIZATION OF AV FISTULA - Procedure: AV FISTULA - SUPERFICIALIZATION; Surgeon: Emanuel Simon MD; Location: [facility] OR; Service: Vascular; Laterality: Left; OTHER SURGICAL HISTORY Left 04/08/2014 AV FISTULA PLACEMENT - Procedure: AV FISTULA; Surgeon: Rik Simon MD; Location: [facility]; Service: Vascular; Laterality: Left; cephalic OTHER SURGICAL HISTORY Left 03/07/2014 DECLOT GRAFT - Procedure: GRAFT - DECLOT; Surgeon: Rik Simon MD; Location: [facility] OR ; Service: Vascular; Laterality: Left; [...] MR, severe TR.severe pulmonary hyperten arturo Chest t-yco-yonxhgvrmway with pulmonary edema and large right pleural [...] earlier and charting completed later Dictation software, Avieon, used which may contain error for similar sounding words even af ter review. Personal communication requested for any clarification. Portions of my notes may have been carried over for continuity of care.Electronically ananth d by Antonio Benjamin MD at 10/21/2018 3:11 PM Gerber Fernandez MD - 10/21/2018 7:18 AM PD T [facility] Adult Hospitalist Progress Note Hospital Day: [...] BUN 90 on admission -History of a [place] Schnlein purpura -Last hemodialysis approximately 2 weeks [...] final recommendations Gerber Pearson MD 7:18 10/21/2018 arci Weeks RN - 10/21/2018 5:50 AM PDTPatient vitals signs stable, no acute changes. End of shift audit complete. Hal Morgan RN - 10/20/2018 6:19 PM PDTPatient medicated x2 on shift. Dialysis today, 2200 lite r taken off. On O2 2 liters. End of shift review complete. Trent Jovel RN Gerber Fernandez M D - 10/20/2018 9:09 AM PDT [facility] Adult Hospitalist Progress Note Hospital Day: [...] improved, currently on 2 L oxygen, marty kingsaad next cycle of hemodialysis Has been afebrile, [...] BUN 90 on admission -History of a [place] Schnlein purpura -Last hemodialysis approximately 2 weeks [...] 9:09 10/20/2018 documented in this e ncounter Procedure Notes Antonio Benjamin MD - 10/20/2018 5:30 PM PDTFormatting of this note might be different from t chacha original. [facility] Service: NEPHROLOGY Dialysis Note Dara Weldon 23 y.o. [id number] female Jonathan Alonso MD Hospital Day: LOS: 3 days 23-year-old female with past medical history [...] well HD FLOW SHEET REVIEWED Feels better, improving sob No cp, nausea, vomiting, diarrhea, fever, [...] Left; Surgeon: Blake Chavarria MD ; Location: [facility] OR AV FISTULA REPAIR Left 03/07/2014 Procedure: AV FISTULA - GRAFT REPAIR/REVISION; Surgeon: Rki Simon MD; Location: [facility]; Service: Vascular; Laterality: Left; biopsy of kidney age 10 DIALYSIS FISTULA CREATION 04/08/2014 Procedure: DIALYSIS CATHETER - INSERTION; Surgeon: Rik Simon MD; Location: [facility] OR ; Service: Vascular; Laterality: N/A; tunneled catheter.br hemodialysis catheter KIDNEY BIOPSY Left 2003 OTHER SURGICAL HISTORY LAPAROSCOPIC PERITONEAL DIALYSIS CATHETER INSERTION - x2 OTHER SURGICAL HISTORY Right 07/2013 LAPAROSCOPIC PERITONEAL DIALYSIS CATHETER INSERTION - current dialysis access MWF dialysis OTHER SURGICAL HISTORY Left 06/24/2014 SUPERFICIALIZATION OF AV FISTULA - Procedure: AV FISTULA - SUPERFICIALIZATION; Surgeon: Emanuel Simon MD; Location: [facility] MAIN OR; Service: Vascular; Laterality: Left; OTHER SURGICAL HISTORY Left 04/08/2014 AV FISTULA PLACEMENT - Procedure: AV FISTULA; Surgeon: Rik Simon MD; Location: [facility]; Service: Vascular; Laterality: Left; cephalic OTHER SURGICAL HISTORY Left 03/07/2014 DECLOT GRAFT - Procedure: GRAFT - DECLOT; Surgeon: Rik Simon MD; Location: [facility] OR ; Service: Vascular; Laterality: Left; [...] Itching Lisinopril cough OBJECTIVE Vital Signs: BP 127/79 | Pulse 81 | Temp 36.5 C (97.7 F) (Oral) | Resp 18 | Ht 1.702 m (5' 7.01" ) | Wt 64.5 kg (142 lb 3.2 oz) | LMP 06/21/2018 (Exact Date) | SpO2 96% | ? Unknown | BMI 22.27 kg/m I&O Detailed Table: I/O last 3 completed shifts: In: 540 [P.O.:540] Out: - Weight change: Examination: seen with hd rn APPEARANCE: The patient is a pleasant lying in the bed in no distress, awake and alert VITALS: Reviewed as listed. HEAD: NC/AT. NECK: Supple. LUNGS: Decrease bs at right base HEART: S1, S2, no pericardial rub noted. ABDOMEN: distended, no tenderness. EXTREMITIES:+vepedal edemanoted. NEUROLOGIC: No gross focal motor deficitnoted. PSYCH: The patient is alert and oriented x3, mood and affect looks ok MARISEL AVF functioning well LABS: Recent Results (from the past 24 hour(s)) Basic Metabolic Panel Collection Time: 10/20/18 6:41 Result Value Ref Range Na 141 135 - 145 mmol/L K 4.1 3.5 - 4.9 mmol/L Cl 103 99 - 109 mmol/L CO2 31 23 - 32 mmol/L Anion Gap 11 5 - 20 mmol/L Glucose 90 65 - 99 mg/dL BUN 18 8 - 25 mg/dL Creatinine 5.83 (H) 0.50 - 1.00 mg/dL BUN/Creatinine Ratio 3 Ca 8.9 8.5 - 10.5 mg/dL Estimated GFR 9 (L) >60 mL/min/1.73m2 Imaging @RISRESULT@ PROBLEM LIST Principal Problem: Non-cardiogenic pulmonary edema Active Problems: ESRD (end stage renal disease) History of Henoch-Schonlein purpura Acute hypoxemic respiratory failure Dilated cardiomyopathy Moderate to severe pulmonary hypertension Pleural effusion, not elsewhere classified ASSESSMENT & PLAN FLUID OVERLOAD/ ANASARCA/ EDEMA/ pulmonary edema Improving In the setting of missed hd/ ADHF combined Getting hd with uf LOW NA DIET 2GM/ 24 HOURS FLUID RESTRICTION 1.2 LITERS / 24 HOURS DAILY WEIGHTS STRICT I/O -06/2018 echocardiogram-overall left ventricular systolic function is moderate/severely imp aired, EF 30-35%. Restrictive LV diastolic filling pattern, consistent with elevated LA pr essure and severe dysfunction, grade 3. Moderate MR, severe TR.severe pulmonary hyperten arturo Chest u-txe-kwryasxqixge with pulmonary edema and large right pleural effusion Troponin I-0.151. BNP 1151 Lab Results Component Value Date BUN 18 10/20/2018 BUN 31 (H) 08/22/2018 BUN 79 (H) 08/21/2018 BUN 66 (H) 08/20/2018 BUN 30 (H) 07/24/2018 HYPERKALEMIA Getting hd Improved Low k diet Watch k level closely Lab Results Component Value Date K 4.1 10/20/2018 K 5.1 (H) 08/22/2018 K 5.4 (H) 08/21/2018 K 5.1 (H) 08/20/2018 K 4.4 07/24/2018 HYPERTENSION Controlled WATCH BP CLOSELY DURING HOSPITALIZATION LOW NA DIET Will adjust BP meds according to BP readings BP Readings from Last 3 Encounters: 10/20/18 127/79 08/23/18 121/66 07/24/18 121/70 ESRD ON HD Seen and examined on [...] DETAIL, VERBALIZ ES UNDERSTANDING Antonio Benjamin MD 10/20/2018 Jonathan Alonso MD Seen earlier and charting completed later Dictation software, Avieon, used which may contain error for similar sounding words even af ter review. Personal communication requested for any clarification. Portions of my notes may have been carried over for continuity of care.Electronically ananth d by Antonio Benjamin MD at 10/20/2018 7:19 PM PDTdocumented in this encounter Miscellaneous Notes Plan of Riley - Nereida Coburn RN - 10/22/2018 12:06 PM PDT Problem: Adult Inpatient Plan of Care Goal: Absence of Hospital-Acquired Illness or Injury Outcome: Ongoing, progressing Note: Pt has been without fall or injury. Independent with cares and up ad salma in room. lan of Marci Tiwari RN - 10/21/2018 7:38 PM PDT Problem: Fall Injury Risk Goal: Absence of Fall and Fall-Related Injury Outcome: Ongoing, progressing Patient educated advisor consultant light use, bed in lowest position, and non slip socks provided.El ectronically signed by Marci Weeks RN at 10/21/2018 7:38 PM PDTPlan of Jorge Carter RN - 10/21/2018 11:50 AM PDTNo falls at this time. Pt uses call light appropriatel y. VSS. Non-skid socks applied. Pt independent in the room. lan of Marci Anderson RN - 10/21/2018 1:4 8 AM PDT Problem: Adult Inpatient Plan of Care Goal: Optimal Comfort and Wellbeing Outcome: Ongoing, progressing Patient comfortable and watching movies.Electronically signed by Marci Weeks RN at 1:48 AM PDTdocumented in this encounter Plan of [...] [facility] | | | | performed at [facility], [address] | | LABORATORY | | | | [address], | | | | | | [place] [address] | | | | + + + + + + + + | Specimen | + + | Blood | + + + + + + + | Performing | Address | City/State/Zipcode | Phone Number | | Organization | | | | + + + + + | [facility] | [address] | [place] [address] | [phone] | + + + + + Basic [...] 7 (L)Comment: GFR <60: | >60 | [facility] | | | GFR | CHRONIC [...] | | | | | performed at [facility], [address] | | | | | | [facility], | | | | | | [place] [address] | | | | + + + [...] HOSPITAL LABORATORY | [address] | [place] [address] | [phone] | + + + + + Basic [...] 11 (L)Comment: GFR <60: | >60 | [facility] | | | GFR | CHRONIC [...] | | | | | | MDRD IDIL traceable | | | | | | equation.Testing | | | | | | performed at [facility], [address] | | | | | | [facility], | | | | | | [place] [address] | | | | + + + [...] HOSPITAL LABORATORY | [address] | [place] [address] | [phone] | + + + + + Basic [...] 9 (L)Comment: GFR <60: | >60 | [facility] | | | GFR | CHRONIC [...] | | | | | | MDRD [facility] traceable | | | | | | equation.Testing | | | | | | performed at [facility];[address] | | | | | | [facility];[place], [place] | | | | | | [address] | | | | + + + [...] | [facility] | [address] | [place] [address] | [phone] | + + + + + documented in this encounter Visit Diagnoses + + | Diagnosis | + + | Non-cardiogenic pulmonary edema - Primary Pulmonary congestion and hypostasis | + + | ESRD (end stage renal disease) ([facility]) End stage renal disease | + + | Dilated cardiomyopathy ([facility]) Other primary cardiomyopathies | + + | Anemia in ESRD (end-stage renal disease) ([facility]) Anemia in chronic kidney disease [...] plasma protein metabolism | + + | History of Henoch-Schonlein [...] | | | for platelets less than [address], | | + +---+ | | | [...] PRN, Nausea, | | | Vomiting, Starting Mon10/19/18 | | | at 1116, Give PO [...] +-------+ +-------+---+---+ +-------+ +-------+---+---+ | Given | 08/18/20 | 40 mg | | | | [...] - PRN, Hypotension, | | | Starting Mon10/22/18 at 1309, | | | Treatment date(s): [...]
--- OUTSIDE RECORDS SUMMARY | ~2019-12-25 | XMS | Encounter Summary ---
Demographics + + + | Address | [address] | | | [place] [address] | + + + | Home Phone [...] | Author | [facility] | | | and [place] | + + + | Organization | [facility] | | | [...] Providers + +------+ + | Care Production Utility Worker Name | Role | Phone | [...] [address] | | | | | ([facility]) | [address] | [address] | | | | | Anemia in | [place], [place] | [place], | | | | | ESRD | [address] | [place] [address] | | | | | (end-stage | Phone: | Phone: | | | | | renal | [phone] | [phone] | | | | | disease) | Fax: | Fax: | | | | | ([facility]) | [phone] | [phone] | | | | | Procedures | [...] | 10/31/ | Off-Site | [facility] [place] | Jorje Camp | ESRD (end stage | | 2017 | Visit | NEPHROLOGY [address] | M, DO [address] | renal disease) ([facility]) | | | | [address] | [address] [place] | (Primary Dx) | | | | [place], [place] | [place] [address] | | | | | [address] | [phone] | | | | | [phone] | | | +--------+ + + + [...] + documented as of this encounter Progress Jorje Grissom DO - 10/31/2016 10:00 AM PDTNEPHROLOGY (Dara left RACH, before I could see her. She apparently [...]
--- OUTSIDE RECORDS SUMMARY | ~2019-12-25 | XMS | Encounter Summary ---
Demographics + + + | Address | [address] | | | [place] [address] | + + + | Home Phone [...] + + | Author | [facility] | | | and [place] | + + + | Organization | [facility] | | | and [...] Team Providers + +------+ + | Care Composite Engineer Name | Role | Phone | [...] [address] [place] | | | | | [place], [place] | [place] [address] | | | | | [address] | [phone] | | | | | [phone] | | | +--------+ + + + [...] this encounter Progress Notes Marilyn Palumbo - 08/14/2013 9:55 AM PDTHEMO progress note manually faxed to [facility] [place], e-faxed to Lianna Joy [facility] Pediatric Nephrology on 08/04 03/19. Daniela Marquez M D - 07/29/2013 1:57 PM PDT Comprehensive Dialysis Monthly Note Date of visit: 07/29/2013 Dialysis Clinic: [facility] Mode of dialysis: Hemodialysis Dialysis prescription: MWF, [...] Date Noted ESRD (end stage renal disease) ([facility]) Priority: High Note Last Updated: 07/29/2013 Due [...] at age 10[address] Joy, pediatrics hospitalist. Anemia in ESRD (end-stage renal disease) ([facility]) Secondary hyperparathyroidism ([facility]) Obesity No Known Allergies Outpatient Prescriptions Marked [...] to recent infection. 8. Transplantation: Pt's father, Clyaton, is a potential living donor. Pt has been referred t o [facility]. 9. Peritonitis, MSSA. On Keflex. cc: [facility] Dr. Lianna Joy, [facility] Pediatric Nephrology documented in this encounter [...]
--- OUTSIDE RECORDS SUMMARY | ~2019-12-25 | XMS | Encounter Summary ---
Demographics + + + | Address | [address] | | | [place] [address] | + + + | Home Phone [...] Providers + +------+ + | Care Inspector Subassembly Name | Role | Phone | + [...] [address] [place] | | | | | [place], [place] | [place] [address] | | | | | [address] | [phone] | | | | | [phone] | | | +--------+ + + + [...] PM PDTManually faxed demographic sheet, copy of [employer] ce cards, progress note from 04/28/14 and 02/24/14 on 05/29/14 to Manny Whaley MD for up coming appointment. docume nted in this encounter Plan of Treatment Not on filedocumented as of this encounter Visit Diagnoses Not on filedocumented in this encounter"
--- OUTSIDE RECORDS SUMMARY | ~2019-12-25 | XMS | Encounter Summary ---
Demographics + + + | Address | [address] | | | [place] [address] | + + + | Home Phone [...] Author | [facility] | | | and [place] | + + + | Organization | [facility] | | [...] Team Providers + +------+ + | Care Center Punch Operator Name | Role | Phone | + +------+ + PCP | Unavailable | + +------+ + Encounter Details +--------+ + + + + | Date | Type | Department | Care Team | Description | +--------+ + + + + | 04/08/ | Hospital | [facility] | Sudhakar Joy | | | 2009 | Encounter | CONVERSION | MD Emanuel [address] [facility] | | | | | [address]PART[address] | | | | [address] | [place], [place] | | | | | [place], [place] | [address] | | | | | [address] | [phone] | | | | | [phone] | | | +--------+ + + + [...]
--- OUTSIDE RECORDS SUMMARY | ~2019-12-25 | XMS | Encounter Summary ---
Demographics + + + | Address | [address] | | | [place] [address] | + + + | Home Phone [...] Team Providers + +------+ + | Care Osteology Teacher Name | Role | Phone | + +------+ + | Jonathan Alonso MD | PCP | | + +------+ + Reason for Visit + +--------+ + | Reason | Onset | Comments | | | Date | | + +--------+ + | Medication Refill | 01/22/ | | | | 2019 | | + +--------+ + Encounter Details +--------+--------+ + + + | Date | Type | Department | Care Team | Description | +--------+--------+ + + + | 01/22/ | Refill | [facility] | Daniela Alejandre | Medication Refill | | 2019 | | CARDIOLOGY GERALD Castellanos [address] Tr[address] | | | | | [address] | | | | | | [facility] [place] | | | | | | [address] | | | | | | [phone] | | | +--------+--------+ + + + [...]
--- OUTSIDE RECORDS SUMMARY | ~2019-12-25 | XMS | Encounter Summary ---
Demographics + + + | Address | [address] | | | [place] [address] | + + + | Home Phone [...] Author | [facility] | | | and [place] | + + + | Organization | [facility] | [...] Providers + +------+ + | Care Home Planning Consultant Salesperson Name | Role | Phone | + +------+ + PCP | Unavailable | + +------+ + Encounter Details +--------+ + + + + | Date | Type | Department | Care Team | Description | +--------+ + + + + | 05/18/ | Orders Only | [facility] [place] | Daniela Ibarra W, | ESRD (end stage | | 2015 | | NEPHROLOGY [address] | [address] | renal disease) ([facility]) | | | | [address] | [address] [place] | (Primary Dx); | | | | [place], [place] | [place] [address] | Secondary | | | | [address] | [phone] | hyperparathyroidism | | | | [phone] | | ([facility]); | | | | | | Hyperphosphatemia [...]
--- OUTSIDE RECORDS SUMMARY | ~2019-12-25 | XMS | Encounter Summary ---
Demographics + + + | Address | [address] | | | [place] [address] | + + + | Home Phone [...] Team Providers + +------+ + | Care Check Services Clerk Name | Role | Phone | + +------+ + PCP | Unavailable | + +------+ + Encounter Details +--------+ + + + + | Date | Type | Department | Care Team | Description | +--------+ + + + + | 02/12/ | Hospital | [facility] | Nereida Roberson | | | 2007 | Encounter | HOSPITAL EMERGENCY | MD [address] | | | | [address] [place] [place], [place] | [place] [address] | | | | | [address] | [phone] | | | | | [phone] | | | +--------+ + + + [...]
--- OUTSIDE RECORDS SUMMARY | ~2019-12-25 | XMS | Encounter Summary ---
Demographics + + + | Address | [address] | | | [place] [address] | + + + | Home Phone [...] Team Providers + +------+ + | Care Cheese Cook Name | Role | Phone | [...] + + | 01/07/ | Hospital | [facility] | Florian Nelson, | Hyperkalemia | | 2019 - | Encounter | [facility] | MD [address] | (Primary Dx); ESRD | | | | CARE FLOOR [phone] | [place] [address] | needing dialysis | | 01/10/ | | [address] | [phone] | ([facility]); Acute | | 2019 | | [place], [place] | | respiratory | | | | [address] | Megan Martínez DO | distress; Recurrent | | | | [phone] | [address] | right pleural | | | | | [place] [address] | effusion; Anemia in | | | | | [phone] | ESRD (end-stage | | | | | | renal disease) | | | | | Nicholas Sutton MD | ([facility]); At high risk | | | | | [address] | for electrolyte | | | | | [place] [address] | imbalance; Chronic | | | | | [phone] | 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 We are always happy to be a part of your medical care, thank you for letting us take care o f you during your hospital stay. We are all rooting for you. - Dr. Kline Clonazepam tablets Brand Names: Daianaclernesto, Klonopin What is this medicine? CLONAZEPAM (kloe [...] the advice of your doctor or health life care planner. A special MedGuide will be given to you by the pharmacist with each prescription and refill . Be sure to read this information carefully each time. Talk to your home security alarm installer regarding the use of this medicine in children. Special care may be needed. What side effects may I notice from receiving this medicine? Side effects that you should report to your doctor or health life care planner as soon as p ossible: allergic reactions [...] attention (report to your doctor or health life care planner if they continue or are bothersome): dizziness [...] this medicine? Tell your doctor or health life care planner if your symptoms do not start to [...] dying should be reported to your health life care planner right away. NOTE:This sheet is a summary. It may not cover all possible information. If you have questi ons about this medicine, talk to your doctor, pharmacist, or health care provider. Copyright 2019 [employer] documented in this encounter Medications at Time [...] | | | | | renal disease) ([facility]) | protocol | | | [...] as | tablet | | 19 | 0 | | tablet | needed for Anxiety [...] mouth | | 1 | 01/02/20 | | | 80 mg tablet | Daily. | | | 19 | 9 | + + + +---------+ + + documented as of this encounter Progress Notes Cliff Duarte MD - 01/10/2019 3:10 PM PST [id number] Hospital Day: LOS: 3 days She was [...] was completed later after rounds. Dictation software, [employer], was used which may contain error for [...] 1,600 mg Oral TID WC dextrose 10% Nereida Tovar RN - 01/09/2019 6:56 PM PSTPt has not had any further episodes of chest pain. Denies any SOB. Zo cory and prn oxy given x2 this shift. Vital signs stable. End of shift chart check complete. Nereida Coburn RN 01/09/19 18:57 Nereida Tovar RN - 01/09/2019 1:30 PM [id number] Pt c/o chest pain rated 9/10, described [...] orders at this time, however EKG ordered. donor technician called and en route. 1340- EKG [...] note might be different from the o riginal. [id number]/[id number] Hospital Day: LOS: 2 days She [...] was completed later after rounds. Dictation software, [employer], was used which may contain error for [...] Kline DO - 01/09/2019 8:20 AM PST [facility] Adult Hospitalist Progress Note Hospital [...] Hyperkalemia: -Treated in the emergency room at [facility] that he had, potassium now [...] of transfusion at this time -Epogen per laser systems engineer GI and DVT prophylaxis Paty Kline DO [...] was completed later after rounds. Dictation software, [employer], was used which may contain error for [...] 10% heparin (dialysis) 500 Units/hr (01/08/19 0934) Paty Mora DO - 01/08/2019 7:50 AM PST [facility] Adult Hospitalist Progress Note Hospital [...] Hyperkalemia: -Treated in the emergency room at [facility] that he had, potassium now [...] of transfusion at this time -Epogen per laser systems engineer Hypoglycemia: -Likely secondary to insulin given for her hyperkalemia and decrease PO intake -Hypoglycemic protocol GI and DVT prophylaxis Paty Kline DO 01/08/2019 Piedad Vega MD - 01/07/2019 7:14 AM PST [facility] Service: Hospitalist Progress Note Hospital Day: LOS: 0 days SUBJECTIVE Patient Summary: From [facility] Dr. Martínez 01/07/19 The patient is a 23 y.o. female with significant past medical history of HSP nephritis, rig ht pleural effusions recurrent, thoracentesis, bacteremia, clotted hemodialysis catheter, no ncompliance, asthma who presents transferred from [facility] with hyperkalemia, hyperte nsion noncompliant [...] life. Patient was treated for hyperkalemia in [facility] as her potassium was 6.8. The data from [facility] was a chest x-ray which shows motion [...] Temp src Pulse Resp SpO2 Height Weight 01/07/19 0522 1.676 m (5' 6") 78.3 kg (172 lb 11.2 oz) 01/07/19520 (!) 169/105 Oral 71 20 95 % [...] note and vitals reviewed. DATA Recent Labs 01/07/19139 WBC 10.84 HGB 9.9* HCT 29.5* PLT [...] for input(s): IRON, TIBC, PCTSAT, FERRITIN, TSH, [id number], FOLATE in the last 168 hours. No [...] Hyperkalemia: -Treated in the emergency room at [facility] that he had, potassium now [...] of transfusion at this time -Epogen per laser systems engineer Hypoglycemia: -Likely secondary to insulin given for her hyperkalemia and decrease PO intake -Hypoglycemic protocol GI and DVT prophylaxis Disposition: Code Status: Full Code Piedad Mosquera MD 01/07/2019 7:14 egan Martínez DO - 7:05 AM PSTSigned off to Dr Mosquera Chest x ray post thoracentesis by ED physician reveals possible right pneumothorax though a ppearance is atypical. Dr. Nelson aware, recommended a CT scan chest Dr Mosquera ordering the CT chest, patient stable on 4 liter, O2 needs has not increased sin ce admitted to the ER documented in this encou nter H&P Notes Megan Martínez DO - 01/07/2019 2:36 AM PSTFormatting of this note might be different from dari coleman. [facility] Service: Hospitalist Admission History & Physical Date of Admission: 01/07/2019 Primary Care Physician: Jonathan Alonso MD Reason for Admission: Acute respiratory distress, hyperkalemia, uncontrolled hypertension, recurrent right pleural effusion, end-stage renal disease, noncompliance, anemia secondary t o renal disease, hypoglycemia History obtained chart review and the patient. CHIEF COMPLAINT: Chief Complaint Patient presents with High Potassium Hypertension HISTORY OF PRESENT ILLNESS The patient is a 23 y.o. female with significant past medical history of HSP nephritis, rig ht pleural effusions recurrent, thoracentesis, bacteremia, clotted hemodialysis catheter, no ncompliance, asthma who presents transferred from [facility] with hyperkalemia, hyperte nsion noncompliant [...] oxygen. Went to HD on Monday. HD M//. Patient missed HD because she has a lot of going on in her life. Patient was treated for hyperkalemia in [facility] as her potassium was 6.8. The data from [facility] was a chest x-ray which shows motion of the right hemithorax opacified Noncompliant with hemodialysis, patient had been admitted on monthly basis due to noncompli ant with hemodialysis, right-sided heart failure, recurrent right effusion and ? Bacteremia vs contaminant staph negative cocci Medications calcium gluconate in saline 1 g/50 mL IVPB 1 g (1 g Intravenous New Bag 01/07/19 025) metoprolol tartrate (LOPRESSOR) tablet 25 mg (25 mg Oral Given 01/07/19 0221) acetaminophen (TYLENOL) tablet 650 mg (650 mg Oral Given 01/07/19 0226) promethazine (PHENERGAN) (IV ONLY) injection 6.25 mg (6.25 mg Intravenous Given 01/07/19 024 3) diazePAM (VALIUM) injection 5 mg (5 mg Intravenous Given 01/07/19 0330) Active comorbid conditions include: - CHF - hypertension; secondary; due to renovascular - renal disease; CKD; ESRD - obesity - Additional Diagnosis: Non-compliance Review of Systems Constitutional: Positive for fatigue. Negative for activity change, chills, diaphoresis and fever. HENT: Negative for congestion, ear discharge, ear pain, hearing loss, nosebleeds and sinus pressure. Eyes: Negative for redness and visual disturbance. Respiratory: Positive for chest tightness and shortness of breath. Negative for apnea, coug h and choking. Cardiovascular: Positive for leg swelling. Negative for chest pain and palpitations. Gastrointestinal: Negative for abdominal distention, abdominal pain, blood in stool, consti pation, diarrhea, nausea and vomiting. Endocrine: Negative for cold intolerance, heat intolerance, polydipsia, polyphagia and poly uria. Genitourinary: Negative for difficulty urinating, dysuria, flank pain, frequency, genital s ores and hematuria. Musculoskeletal: Negative for arthralgias, back pain, gait problem and neck pain. Skin: Negative for color change, pallor, rash and wound. Allergic/Immunologic: Negative for environmental allergies and immunocompromised state. Neurological: Positive for headaches. Negative for dizziness, seizures, facial asymmetry, s peech difficulty, light-headedness and numbness. Hematological: Does not bruise/bleed easily. Psychiatric/Behavioral: Negative for agitation, behavioral problems, confusion, decreased c oncentration and hallucinations. The patient is not nervous/anxious. PAST MEDICAL HISTORY Past Medical History: Diagnosis Date Asthma Bacteremia due to Gram-positive bacteria 12/12/2018 Clotted dialysis access ([facility]) 2014 Congestive heart failure ([facility]) ESRD (end stage renal disease) ([facility]) HSP (Henoch-Schonlein purpura) nephritis ([facility]) 1987 Hypertension Pericardial effusion without cardiac tamponade 11/07/2018 PAST SURGICAL HISTORY Past Surgical History: Procedure Laterality Date ABDOMEN SURGERY AV FISTULA REPAIR 02/24/2014 LEFT Radical Cephalic Fistula Creation; Laterality: Left; Surgeon: Blake Chavarria MD ; Location: [facility] MAIN OR AV FISTULA REPAIR Left 03/07/2014 Procedure: AV FISTULA - GRAFT REPAIR/REVISION; Surgeon: Rik Simon MD; Location: [facility] IN OR; Service: Vascular; Laterality: Left; biopsy of kidney age 10 DIALYSIS FISTULA CREATION 04/08/2014 Procedure: DIALYSIS CATHETER - INSERTION; Surgeon: Rik Simon MD; Location: [facility] MAIN OR ; Service: Vascular; Laterality: N/A; tunneled catheter.br hemodialysis catheter KIDNEY BIOPSY Left 2003 OTHER SURGICAL HISTORY LAPAROSCOPIC PERITONEAL DIALYSIS CATHETER INSERTION - x2 OTHER SURGICAL HISTORY Right 07/2013 LAPAROSCOPIC PERITONEAL DIALYSIS CATHETER INSERTION - current dialysis access MWF dialysis OTHER SURGICAL HISTORY Left 06/24/2014 SUPERFICIALIZATION OF AV FISTULA - Procedure: AV FISTULA - SUPERFICIALIZATION; Surgeon: Emanuel Simon MD; Location: [facility] MAIN OR; Service: Vascular; Laterality: Left; OTHER SURGICAL HISTORY Left 04/08/2014 AV FISTULA PLACEMENT - Procedure: AV FISTULA; Surgeon: Rik Simon MD; Location: [facility] N OR; Service: Vascular; Laterality: Left; cephalic OTHER SURGICAL HISTORY Left 03/07/2014 DECLOT GRAFT - Procedure: GRAFT - DECLOT; Surgeon: Rik Simon MD; Location: [facility] MAIN OR ; Service: Vascular; Laterality: Left; peritoneal catheter ALLERGIES Allergies Allergen Reactions Adhesive & Tape Rash Certain tapes Fentanyl Itching Iodinated Diagnostic Agents Itching Pt c/o face itching during fistulagram Methylphenidate Other (See Comments) Patient says skin was crawling Morphine Itching and Rash Reglan [Metoclopramide] Itching Lisinopril cough HOME MEDICATIONS Prior to Admission medications Medication Sig Start [...] week. Per dialysis c linic protocol 02/26/18 Yes Jorje Camp DO epoetin jenna (EPOGEN) 20,000 units/mL injection Inject 0.4 mLs (8,000 Units total) into the skin every 7 days. 07/03/13 Yes Historical Provider, etelcalcetide (PARSABIV) 2.5 mg/0.5 mL injection Inject 2.5 mg into the vein Three times a week. Yes Historical Provider, iron sucrose (VENOFER) 20 mg/mL injection Inject 2.5 mLs into the vein Once a week. 09/12/14 Yes Daniela Ibarra MD losartan (COZAAR) 25 mg tablet Take 1 tablet by mouth Daily. 11/09/18 Yes Darell Kowalski MD metoprolol succinate (TOPROL-XL) 50 mg 24 hr tablet Take 1 tablet by mouth daily. 07/24/18 Yes Historical Provider, ondansetron (ZOFRAN) 4 mg tablet Take 4 mg by mouth 3 (three) times daily as needed for Gm sea. Yes Historical Provider, pantoprazole (PROTONIX) 40 mg tablet Take 40 mg by mouth every morning before breakfast. Yes Historical Provider, promethazine (PHENERGAN) 25 mg tablet Take 1 tablet by mouth every 6 (six) hours as needed for Nausea or Vomiting (non-resposive to zofran). 07/24/18 Yes Historical Provider, sevelamer carbonate (RENVELA) 800 mg tablet Take 2 tablets by mouth 3 (three) times daily w ith meals and 2 tablet with snacks twice daily 06/01/18 06/01/19 Yes Historical Provider, SOCIAL HISTORY reports that she has quit smoking. She smoked 0.50 packs per day. She has never used smoke less tobacco. She reports that she does not drink alcohol or use drugs. FAMILY HISTORY family history includes Alcohol abuse in her father; Heart disease in her mother; High bloo d pressure in her father; Hypertension in her father; Seizures in her mother. PHYSICAL EXAM BP (!) 198/108 | Pulse 95 | Temp 35.7 C (96.2 F) (Oral) | Resp 20 | LMP 06/08/2017 | SpO2 95% Physical Exam Constitutional: She is oriented to person, place, and time. She appears well-developed. No distress. HENT: Head: Normocephalic and atraumatic. Right Ear: External ear normal. Left Ear: External ear normal. Nose: Nose normal. Mouth/Throat: No oropharyngeal exudate. Eyes: Pupils are equal, round, and reactive to light. Conjunctivae and EOM are normal. Righ t eye exhibits no discharge. Left eye exhibits no discharge. No scleral icterus. Neck: Normal range of motion. Neck supple. Cardiovascular: Normal rate, regular rhythm and normal heart sounds. No murmur heard. Pulmonary/Chest: She is in respiratory distress. She has no wheezes. She has no rales. She exhibits no tenderness. Labored breathing, hypoactive breath sounds Abdominal: Bowel sounds are normal. She exhibits no distension. There is no tenderness. Firm Musculoskeletal: Normal range of motion. She exhibits no edema, tenderness or deformity. Left upper extremity AV fistula Neurological: She is alert and oriented to person, place, and time. No cranial nerve defici t or sensory deficit. She exhibits normal muscle tone. Coordination normal. Skin: Skin is warm and dry. No rash noted. She is not diaphoretic. No erythema. Psychiatric: She has a normal mood and affect. Her behavior is normal. Judgment and thought content normal. DATA Recent Results (from the past 24 hour(s)) CBC with Differential Result Value Ref Range WBC 10.84 3.80 - 11.00 K/uL RBC 2.67 (L) 3.70 - 5.10 M/uL Hemoglobin 9.9 (L) 11.3 - 15.5 g/dL Hematocrit 29.5 (L) 34.0 - 46.0 % MCV 110.6 (H) 80.0 - 100.0 fl MCH 37.0 (H) 27.0 - 34.0 pg MCHC 33.4 32.0 - 35.5 g/dL RDW-SD 68.3 (H) 37 - 53 fl Platelet Count 240 150 - 400 K/uL MPV 9.5 fl Diff Type MANUAL % Segmented Neutrophils 60 % % Bands 1 % % Lymphocytes 19 % % Monocytes 2 % Eosinophils % 18 % Neutrophils, Absolute 6.50 1.90 - 7.40 K/uL Absolute Band Neutrophils 0.11 0.00 - 0.20 K/uL Absolute Lymphocytes 2.06 1.00 - 3.90 K/uL Absolute Monocytes 0.22 0.00 - 0.80 K/uL Eosinophils, Absolute 1.95 (H) 0.00 - 0.50 K/uL Platelet Estimate ADEQUATE RBC Morphology 2+ Comprehensive Metabolic Panel Result Value Ref Range Na 144 135 - 145 mmol/L K 5.9 (H) 3.5 - 4.9 mmol/L Cl 108 99 - 109 mmol/L CO2 21 (L) 23 - 32 mmol/L Anion Gap 21 (H) 5 - 20 mmol/L Glucose 55 (L) 65 - 99 mg/dL BUN 106 (H) 8 - 25 mg/dL Creatinine 13.71 (H) 0.50 - 1.00 mg/dL BUN/Creatinine Ratio 8 Calcium 10.3 8.5 - 10.5 mg/dL Protein, Total 6.5 6.3 - 8.2 g/dL Albumin 4.1 3.6 - 5.0 g/dL Globulin 2.4 1.3 - 4.9 g/dL A/G Ratio 1.7 1.0 - 2.4 BILIRUBIN, TOTAL 0.5 0.1 - 1.5 mg/dL ALK PHOS 122 (H) 35 - 115 U/L AST 51 (H) 10 - 45 U/L ALT 38 10 - 65 U/L Estimated GFR 3 (L) >60 mL/min/1.73m2 POC Glucose Result Value Ref Range Glucose, POC 67 65 - 99 mg/dL POC Glucose Result Value Ref Range Glucose, POC 119 (H) 65 - 99 mg/dL ECG 12 lead Result Value Ref Range VENTRICULAR RATE EKG 91 BPM ATRIAL RATE 91 BPM P-R INTERVAL 200 ms QRS DURATION 92 ms Q-T INTERVAL 382 ms Q-T INTERVAL (CORRECTED) 469 ms P WAVE AXIS 44 degrees QRS AXIS -12 degrees T AXIS 121 degrees INTERPRETATION TEXT Normal sinus rhythm Nonspecific ST and T wave abnormality Abnormal ECG When compared with ECG of 11-DEC-2018 08:11, T wave inversion no longer evident in Lateral leads This ECG contains Unconfirmed Interpretation Statements. See ED Record for Physician Inter pretation. Confirmed by MUSE READ ONLY, -COMPUTER ([id number]), city editor JOSH CHAPPELL ([id number]) on 01/07/2019 2 :50:41 AM ASSESSMENT & PLAN Principal Problem: Acute respiratory distress: -Multifactorial secondary to right pleural effusion, noncompliant with hemodialysis, asthma and noncompliance with diet -Oxygen as needed -ED physician to perform thoracentesis -Hemodialysis -Encourage compliance Active Problems: Hyperkalemia: -Treated in the emergency room at [facility] that he had, potassium now [...] of transfusion at this time -Epogen per laser systems engineer Hypoglycemia: -Likely secondary to insulin given for her hyperkalemia and decrease PO intake -Hypoglycemic protocol GI and DVT prophylaxis Code Status: FULL CODE Dictation software, [employer], used which may contain errors for similar sounding words even a fter reviewed. Personal communication requested for any clarification Megan Martínez DO 01/07/2019 3:38 documented in this encou nter Consult Notes Cliff Duarte MD - 01/07/2019 9:42 AM PSTAssociated Order(s): PROVIDER TO PROVIDER CONSU LT [id number] Hospital Day: LOS: 0 days CHIEF COMPLAINT: I need my dialysis HISTORY OF PRESENT ILLNESS: Dara Weldon is a 23 y.o. woman with anuric ESRD who follows up with Dr. Jonathan Alonso MD as primary care provider. She is normally dialyzed on a Monday, Monday, Monday schedule at [facility] using left upper extremity AV fistula. She used to see Dr. Trent Camp but has switched to Emanuel Anguiano. She also has combined diastolic/systolic congestive heart failure and was recently hospital ized at [facility] with hypervolemia and right pleural effusion (12/10/18-12/14/18). She missed her last 2 dialysis sessions (Monday/Monday). She indicated "things got compl icated". Of note she has a history of missing dialysis treatments and non adherence to diet/fluid re striction and has had multiple hospitalizations at [facility] last year with similar presentation. She presented to ED with shortness of breath/chest pains. Imaging was consistent with recurrent hypervolemia and white out right lung.' EKG (seen by myself) showed NSR. Lab work up showed hyperkalemia without EKG changes. She was admitted. She also had thoracentesis done with 1.5 L removed. There was pneumothorax reported in the post thoracentesis but was asymptomatic and plan was for CT chest. Nephrology consultation was requested by Dr. Martínez for evaluation and management of ESRD As sociated with: fluid electrolyte acid base imbalances including hyperkalemia. Records from [facility] reviewed. Last outpatient HD was Monday . She was transferred to 4th floor and begun on dialysis and was seen on dialysis with RN, Abe ne. PMH, PSH, Social history reviewed in chart. [...] no evidence of malfunction/inflammation. Vital Signs: BP 157/86 | Pulse 90 | Temp 36.4 C (97.6 F) (Oral) | Resp 20 | Ht 1.676 m (5' 6") | Wt 79 kg (174 lb 2.6 oz) | LMP 06/08/2017 (Exact Date) | SpO2 96% | ? No | BMI 28.11 kg/m Data evaluation: Lab Results Component Value Date BUN 106 (H) 01/07/2019 EGFR 3 (L) 01/07/2019 NA 144 01/07/2019 K 5.9 (H) 01/07/2019 CL 108 01/07/2019 CO2 21 (L) 01/07/2019 PHOS 8.9 (H) 12/10/2018 MG 2.2 12/10/2018 HGB 9.9 (L) 01/07/2019 Lab Results Component Value Date ANIONGAP 21 (H) 01/07/2019 Lab Results Component Value Date CRP 8.6 [...] hemodialysis 4. Nonadherence to dialysis prescription 5. Hyperkalemia 6. IAG metabolic acidosis 7. Recurrent right [...] using left UE AVF. Plan for repeat dialysis tomorrow and then possibly day after tomorrow. [...] Plan of care was discussed with Dr. Martínez on admission. I thank Dr Martínez for giving me the opportunity to take part in her care with multiple compl ex medical problems. Do not hesitate to contact me if you have any questions. Cliff Duarte MD 01/07/2019 Portions of my previous notes have been carried over for continuity of chart review/care. She was seen earlier in the day and charting was completed later after rounds. Dictation software, [employer], was used which may contain error for [...] 1,600 mg Oral TID WC dextrose 10% documented in this [facility] ED Notes Eda Viera RN - 01/07/2019 5:10 AM PSTBedside report given to Shanta SAMUELS, explain ed pt arrival symptoms, PMH, labs/meds/rad/procedures and vitals. Alerted to outstanding Tro ponin, but switched to lab collect. No further questions noted. Eda Bain RN - 01/07/2019 4:00 [address] PSTDr. Nelson performed thoracentes is, 1.5L drained, pt tolerated moderately. Electronically signed by ABRIL Julio t 01/07/2019 4:01 AM Eda Bain RN - 01/07/2019 3:35 AM PSTDr. Nelson and Vanessa Fisher at bedside performing thoracentesis. Eda Bain RN - 01/07/2019 2:55 AM PSTDr. Dre at be dside. Laura Crenshaw RN - 01/07/2019 2:45 AM PSTPt asked for her oxygen to be increased back to 3L d/t fe eling SOB, O2 sats were around 96-87% on 2L. Eda Bain RN - 01/07/2019 2:12 AM PSTPT given OJ w/ sugar packets. Eda Bain RN - 01/07/2019 2:09 AM PSTPOC = 67 Provider notified Florian Holbrook MD - 01/07/2019 1:36 AM PSTAssociated Order(s): Thoracentesis [facility] Department of Emergency Medicine History of Present Illness Patient Identification Dara Weldon is a 23 y.o. female. Patient presented to the Emergency Department by: Car Chief Complaint Chief Complaint Patient presents with High Potassium Hypertension 23 y.o. female presenting with a chief complaint of needing dialysis Location: general Onset/Duration: missed dialysis Monday and Monday Quality: SOB Severity: moderate Associated Symptoms: none Context: The patient presented to [facility] ED and was found to be fluid overloaded wit h a creatinine of 6.8. The patient is non-compliant with her medications and dialysis. Whe n asked why she states that she is grieving the of her friend last July. PCP: Jonathan Alonso MD Past Medical History: Diagnosis Date [...] Left; Surgeon: Blake Chavarria MD ; Location: [facility] MAIN OR AV FISTULA REPAIR Left 03/07/2014 Procedure: AV FISTULA - GRAFT REPAIR/REVISION; Surgeon: Rik Simon MD; Location: [facility] IN OR; Service: Vascular; Laterality: Left; biopsy of kidney age 10 DIALYSIS FISTULA CREATION 04/08/2014 Procedure: DIALYSIS CATHETER - INSERTION; Surgeon: Rik Simon MD; Location: [facility] MAIN OR ; Service: Vascular; Laterality: N/A; tunneled catheter.br hemodialysis catheter KIDNEY BIOPSY Left 2003 OTHER SURGICAL HISTORY LAPAROSCOPIC PERITONEAL DIALYSIS CATHETER INSERTION - x2 OTHER SURGICAL HISTORY Right 07/2013 LAPAROSCOPIC PERITONEAL DIALYSIS CATHETER INSERTION - current dialysis access MWF dialysis OTHER SURGICAL HISTORY Left 06/24/2014 SUPERFICIALIZATION OF AV FISTULA - Procedure: AV FISTULA - SUPERFICIALIZATION; Surgeon: Emanuel Simon MD; Location: [facility] OR; Service: Vascular; Laterality: Left; OTHER SURGICAL HISTORY Left 04/08/2014 AV FISTULA PLACEMENT - Procedure: AV FISTULA; Surgeon: Rik Simon MD; Location: [facility] OR; Service: Vascular; Laterality: Left; cephalic OTHER SURGICAL HISTORY Left 03/07/2014 DECLOT GRAFT - Procedure: GRAFT -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 [facility];[address] | | LABORATORY | | | | [address];[place] | | | | | | [address] | | | | + + + + + + + + | Specimen | + + | | + + + + + + + | Performing | Address | City/State/Zipcode | Phone Number | | Organization | | | | + + + + + | [facility] | [address] | [place] [address] | [phone] | + + + + + Comprehensive [...] 9 (L)Comment: GFR <60: | >60 | [facility] | | | GFR | CHRONIC [...] | | | | | performed at [facility] | | | | | | [facility];[place], [place] | | | | | | [address] | | | | + + + + + + + + | Specimen | + + | Blood | + + + + + + + | Performing | Address | City/State/Zipcode | Phone Number | | Organization | | | | + + + + + | [facility] | [address] | [place] [address] | [phone] | + + + + + CBC [...] | | LABORATORY | | | | [address] | | | [address];[place] [address] | | | | + + + + + + + + | Specimen | + + | Blood | + + + + + + + | Performing | Address | City/State/Zipcode | Phone Number | | Organization | | | | + + + + + | [facility] | [address] | [place] [address] | [phone] | + + + + + POC [...] | | | POC | performed at [facility];[address] | | LABORATORY | | | | [address];[place] | | | | | | [address] | | | | + + + + + + + + | Specimen | + + | | + + + + + + + | Performing | Address | City/State/Zipcode | Phone Number | | Organization | | | | + + + + + | [facility] | [address] | [place] [address] | [phone] | + + + + + POC Glucose (01/09/2019 6:19 AM PST) + + + + + + | Component | Value | Ref Range | Performed | Pathologist | | | | | At | Signature | + + + + + + | Glucose, | 88Comment: Testing | 65 - 99 mg/dL | [facility] | | | POC | performed at [facility];[address] | | LABORATORY | | | | [address];[place] | | | | | | [address] | | | | + + + + + + + + | Specimen | + + | | + + + + + + + | Performing | Address | City/State/Zipcode | Phone Number | | Organization | | | | + + + + + | [facility] | [address] | [place] [address] | [phone] | + + + + + POC [...] | | | POC | performed at [facility];[address] | | LABORATORY | | | | [address];[place], [place] | | | | | | [address] | | | | + + + + + + + + | Specimen | + + | | + + + + + + + | Performing | Address | City/State/Zipcode | Phone Number | | Organization | | | | + + + + + | [facility] | [address] | [place] [address] | [phone] | + + + + + POC Glucose (01/08/2019 4:53 PM PST) + + + + + + | Component | Value | Ref Range | Performed | Pathologist | | | | | At | Signature | + + + + + + | Glucose, | 107 (H)Comment: Testing | 65 - 99 mg/dL | [facility] | | | POC | performed at [facility];[address] | | LABORATORY | | | | [address];[place] | | | | | | [address] | | | | + + + + + + + + | Specimen | + + | | + + + + + + + | Performing | Address | City/State/Zipcode | Phone Number | | Organization | | | | + + + + + | [facility] | [address] | [place] [address] | [phone] | + + + + + POC Glucose (01/08/2019 12:23 PM PST) + + + + + + | Component | Value | Ref Range | Performed | Pathologist | | | | | At | Signature | + + + + + + | Glucose, | 76Comment: Testing | 65 - 99 mg/dL | [facility] | | | POC | performed at [facility];[address] | | LABORATORY | | | | [address];[place], [place] | | | | | | [address] | | | | + + + + + + + + | Specimen | + + | | + + + + + + + | Performing | Address | City/State/Zipcode | Phone Number | | Organization | | | | + + + + + | [facility] | [address] | [place] [address] | [phone] | + + + + + POC Glucose (01/08/2019 7:35 AM PST) + + + + + + | Component | Value | Ref Range | Performed | Pathologist | | | | | At | Signature | + + + + + + | Glucose, | 74Comment: Testing | 65 - 99 mg/dL | [facility] | | | POC | performed at [facility];[address] | | LABORATORY | | | | [address];[place], [place] | | | | | | [address] | | | | + + + + + + + + | Specimen | + + | | + + + + + + + | Performing | Address | City/State/Zipcode | Phone Number | | Organization | | | | + + + + + | [facility] | [address] | [place] [address] | [phone] | + + + + + Comprehensive [employer] Panel (01/08/2019 4:51 AM PST) + + [...] Hospital, | | | | | | [place] [address] | | | | + + + + + + + + | Specimen | + + | Blood | + + + + + + + | Performing | Address | City/State/Zipcode | Phone Number | | Organization | | | | + + + + + | [facility] | [address] | [place] [address] | [phone] | + + + + + CBC [...] + + + | Red Blood | 2.75 (L) | 3.70 - 5.10 [...] performed at [facility], [address] | | LABORATORY | | | | [address], | | | | | | [place] [address] | | | | + + + + + + + + | Specimen | + + | Blood | + + + + + + + | Performing | Address | City/State/Zipcode | Phone Number | | Organization | | | | + + + + + | [facility] | [address] | [place] [address] | [phone] | + + + + + POC [...] | | | POC | performed at [facility];[address] | | LABORATORY | | | | [address];[place] | | | | | | [address] | | | | + + + + + + + + | Specimen | + + | | + + + + + + + | Performing | Address | City/State/Zipcode | Phone Number | | Organization | | | | + + + + + | [facility] | [address] | [place] [address] | [phone] | + + + + + POC [...] | | | POC | performed at [facility];[address] | | LABORATORY | | | | [address];[place], [place] | | | | | | [address] | | | | + + + + + + + + | Specimen | + + | | + + + + + + + | Performing | Address | City/State/Zipcode | Phone Number | | Organization | | | | + + + + + | [facility] | [address] | [place] [address] | [phone] | + + + + + CT [...] adenopathy. Upper Abdomen: The | | | [place] kidneys are atrophic. There is a small [...] No adenopathy. | | Upper Abdomen: The [place] kidneys are atrophic. There is a small [...] | | | POC | performed at [facility];[address] | | LABORATORY | | | | [address];[place], [place] | | | | | | [address] | | | | + + + + + + + + | Specimen | + + | | + + + + + + + | Performing | Address | City/State/Zipcode | Phone Number | | Organization | | | | + + + + + | [facility] | [address] | [place] [address] | [phone] | + + + + + Hepatitis [...] | | | | TCL, [address] | | | | | | [place] | | | | | | [address] | | | | + + + + + + + + | Specimen | + + | Blood | + + + + + + + | Performing | Address | City/State/Zipcode | Phone Number | | Organization | | | | + + + + + | [facility] | [address] | [place] [address] | [phone] | + + + + + POC Glucose (01/07/2019 7:14 AM PST) + + + + + + | Component | Value | Ref Range | Performed | Pathologist | | | | | At | Signature | + + + + + + | Glucose, | 83Comment: Testing | 65 - 99 mg/dL | [facility] | | | POC | performed at [facility];[address] | | LABORATORY | | | | [address];[place] | | | | | | [address] | | | | + + + + + + + + | Specimen | + + | | + + + + + + + | Performing | Address | City/State/Zipcode | Phone Number | | Organization | | | | + + + + + | [facility] | [address] | [place] [address] | [phone] | + + + + + XR [...] effusion. | | | Signed by: Eliza Layton Brian Sign Date/Time: 01/07/2019 | | | 4:41 [...] | | | | | ONLY, -COMPUTER ([id number]), | | | | | | city editor JOSH CHAPPELL | | | | | | ([id number]) on 01/07/2019 | | | | | [...] | | | POC | performed at [facility];[address] | | LABORATORY | | | | [address];[place] | | | | | | [address] | | | | + + + + + + + + | Specimen | + + | | + + + + + + + | Performing | Address | City/State/Zipcode | Phone Number | | Organization | | | | + + + + + | [facility] | [address] | [place] [address] | [phone] | + + + + + POC Glucose (01/07/2019 2:08 AM PST) + + + + + + | Component | Value | Ref Range | Performed | Pathologist | | | | | At | Signature | + + + + + + | Glucose, | 67Comment: Testing | 65 - 99 mg/dL | [facility] | | | POC | performed at [facility];[address] | | LABORATORY | | | | [address];[place] | | | | | | [address] | | | | + + + + + + + + | Specimen | + + | | + + + + + + + | Performing | Address | City/State/Zipcode | Phone Number | | Organization | | | | + + + + + | [facility] | [address] | [place] [address] | [phone] | + + + + + Troponin I (01/07/2019 1:40 AM PST) + + + + + + | Component | Value | Ref Range | Performed | Pathologist | | | | | At | Signature | + + + + + + | Troponin I | 0.149 (H)Comment: 0.04 | 0.00 - 0.04 | [facility] | | | | ng/mL or [...] at | | | | | | [facility];[address];[place] [address] | | | | + + + + + + + + | Specimen | + + | Blood | + + + + + + + | Performing | Address | City/State/Zipcode | Phone Number | | Organization | | | | + + + + + | [facility] | [address] | [place] [address] | [phone] | + + + + + Comprehensive [...] 38 | 10 - 65 U/L | [facility] | | | | | | LABORATORY | | + + + + + + | Estimated | 3 (L)Comment: GFR <60: | >60 | [facility] | | | GFR | CHRONIC [...] | | | | | performed at [facility];[address] | | | | | | [facility];[place], [place] | | | | | | [address] | | | | + + + + + + + + | Specimen | + + | Blood | + + + + + + + | Performing | Address | City/State/Zipcode | Phone Number | | Organization | | | | + + + + + | [facility] | [address] | [place] [address] | [phone] | + + + + + CBC [...] + + + | Red Blood | 2.67 (L) | 3.70 - 5.10 [...] | | | | | | at [facility];[address] | | | | | | Blvd;[place] [address] | | | | | |NORMAL PLT MORPH | | | | | |Testing performed at [facility];[address] [place] [address];[place] [address] | | | | | | | | | | + + + + + + + + | Specimen | + + | Blood | + + + + + + + | Performing | Address | City/State/Zipcode | Phone Number | | Organization | | | | + + + + + | [facility] | [address] | [place] [address] | [phone] | + + + + + Thoracentesis [...] space: 6th Puncture method: | | | qzzo-tct-vbnopz catheter Needle size: 18 Catheter size: 18 [...] | Anemia in ESRD (end-stage renal disease) ([facility]) Anemia in chronic kidney disease | + + | At high risk for electrolyte imbalance | + + | Chronic combined systolic and diastolic heart failure ([facility]) Chronic combined systolic | | and diastolic heart failure | + + | Dilated cardiomyopathy ([facility]) Other primary cardiomyopathies | + + | ESRD on hemodialysis ([facility]) End stage renal disease | [...] | | at 0800, For 3 doses, For BP | | | less than 100 mm Hg. DIALYSIS | | | USE ONLY - DISCONTINUE AFTER | | | DIALYSIS THERAPY IS COMPLETE, | | | Treatment date(s): 01/09/2019, | | | Dialysis | | + +---+ | | | + +---+ | busPIRone (BUSPAR) tablet 5 mg | | | 5 mg, Oral, DAILY PRN, for | | | anxiety with hemodialysis, | | | Starting [facility] 01/10/19 at 0952 | | + +---+ [...] | | | | | | Starting Mon01/09/19 at 0830, For | | | | [...] mg | | | | Oral, NIGHTLY PRNMontserrat, | | 19 9:06 | | | [...] | | | | | Intravenous, ONCE, Mon01/07/19 | | AM PST | | | [...] - PRN, Hypotension, | | | Starting 01/08/19 at 0758, | | | Treatment date(s): [...]
--- OUTSIDE RECORDS SUMMARY | ~2019-12-25 | XMS | Encounter Summary ---
Demographics + + + | Address | [address] | | | [place] [address] | + + + | Home Phone [...] + + | Author | [facility] | | | and [place] | + + + | Organization | [facility] | | [...] Team Providers + +------+ + | Care Inside Technical Sales Representative Name | Role | Phone [...] [address] | | | | | [place], [place] | [place] [address] | | | | | [address] | [phone] | | | | | [phone] | | | +--------+ + + + [...]
--- OUTSIDE RECORDS SUMMARY | ~2019-12-25 | XMS | Encounter Summary ---
Demographics + + + | Address | [address] | | | [place] [address] | + + + | Home Phone [...] Author | [facility] | | | and [place] | + + + | Organization | [facility] | | | [...] Providers + +------+ + | Care Financial Aid Administrator Name | Role | Phone | [...] | | | | | | [place] | | | | | | | [...] + + | 02/24/ | Hospital | [facility] | Blake Chavarria | ESRD (end stage | | 2013 | Encounter | MED CTR OR INTRA OP | MD Antonieta, FACS [address] | renal disease) (FORMERLY [facility]) | | | | [address] | KEYSHA RAMOS | (Primary Dx) | | | | [place] | [place] [address] | | | | | [address] | [phone] | | | | | [phone] | | | +--------+ + + + [...] might be different f rom the original. [facility] POST-OP INSTRUCTIONS: Arterio-Venous Fistula 1. Keep [...] may interact with prescription medicines or other qrrq-atg-muztrpb (OTC) drugs. The FDA recommends reading OTC medication labels careful ly to clearly understand the list of active ingredients, directions, and any precautions to help avoid taking too muchacetaminophen. If you have questions, ask your pharmacist or a [facility] care provider. Managing Nausea Some [...] or skin changes (rash, itching, or hives). 7660-0570 [employer]. [address] [place] [address]. All righ ts reserved. This information is [...] documented as of this encounter H&P Notes Blake Chavarria MD - 02/24/2014 7:47 AM PST [facility] [place] SURGICAL INTERIM HISTORY AND PHYSICAL UPDATE Pt. Name/Age/: Dara Weldon 18 y.o. 1995 Date of admission: 02/24/2014 The current H&P was reviewed. The patient was reexamined. Re-evaluation of the patient co nfirms the necessity for the scheduled procedure. No change has occurred in the patient s condition since the H&P was completed less than 30 days ago. LABS: Lab Results Component Value Date NA 134* 02/24/2014 K 4.3 02/24/2014 CL 104 02/24/2014 CO2 19* 02/24/2014 BUN 52* 02/24/2014 CREA 9.21* 02/24/2014 No results found for this basename: WBC, HGB, HCT, MCV, LABPLAT, PLT No results found for this basename: INR, PROTIME PHYSICIAN'S VERIFICATION OF INFORMED CONSENT The patient was counseled regarding the procedure, its indications, risks, potential compli cations and alternatives and any questions were answered. Consent was obtained.The correct l eft arm was marked. PHYSICIAN'S VERIFICATION OF INFORMED CONSENT FOR BLOOD TRANSFUSION There is not a reasonable possibility that blood transfusion will be necessary as a result of the patient's procedure. Electronically signed by: Blake Chavarria, 02/24/2014 7:47 [facility] ield, Blake Fung MD - 02/20/2014 10:16 AM PST Patient Identification: Dara Weldon 1995 Is a 18 y.o. female , [...] Care ? Shahid Camargo Who is your Marketing Community Liaison/Kidney Specialist ? Dr. Camp When was the current dialysis access placed? July 2013 at [facility] What problems are there with the current dialysis access? 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 Patient used to have PD catheter for dialysis 2012--[facility] in [place] . Came out Jul, 2013 . Then got RIGHT IJ catheter. Also got catheter at [facility]. Live in [place]. Go es to [place] in [place] for dialysis. Now needs AVF. Is RIGHt hand dominant. No pains in hands. 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 Currently on [facility] for kidney transplant. Wants AVF in LEFT arm. DATA/RECENT IMAGING Note by Daniela Ibarra MD on 01/24/2014 ASSESSMENT AND PLAN: 1. ESRD: Dialysis clearance is at goal. 2. Access: R chest catheter. Pt is going on 7 months of dialyzing via chest catheter. Sparkle ibanez pt has not had any infectious complication [...] ed for acceptable candidacy. Will f/u with [facility] Transplant Team. Shahid Camargo's notes were not available to be reviewed in clinic today. PAST MEDICAL HISTORY Past Medical History She has a past medical history of HSP (Henoch-Schonlein purpura) nephritis (FORM[facility]LY [facility]) (1987) and ESRD (end stage renal disease) (FORMERLY [facility]). Past Surgical History She Past Surgical History Procedure Date Peritoneal catheter Hemodialysis catheter Biopsy of kidney age 10 Allergies Allergen Reactions Morphine Other reaction(s): Rash Medications: Outpatient Encounter Prescriptions as of 02/20/2014 Medication Sig Dispense Refill cholecalciferol (VITAMIN D-3) 1,000 units tablet Take 1,000 Units by mouth Daily. cinacalcet (SENSIPAR) 30 mg tablet Take 30 mg by mouth Daily (with dinner). Epoetin Jenna (EPOGEN IJ) by IV Push route Three [...] REPORT: PATIENT NAME : Dara Weldon EQUIPMENT: [employer] with 10-5 mHertz probe. INDICATIONS: Dialysis access [...] CC: Shahid Camargo documented in this encounter Miscellaneous Notes Plan of Care - [facility] - 02/25/2014 12:00 AM PST [facility]aneous [facility] - 02/25/2014 12:00 AM PSTElec tronically signed by Jose Chavez at 02/25/2014 1:27 PM PSTMiscellaneous - [facility] SC[facility] - 02/25/2014 12:00 AM PST p Note - Blake Chavarria MD - 02/24/2014 10:20 [facility] Oper[facility] Note Pt. Name/Age/: Dara Weldon 18 y.o. 1995 Med. Record Number: [id number] Date of admission: 02/24/2014 Date of Operation/Procedure: 02/24/2014 Preoperative Diagnosis: End stage renal disease (HCC) Post-Op Diagnosis Codes: * End stage renal disease (HCC) [585.6] Surgeon: Blake Chavarria MD Anesthesia Provider(s): Celso Dacosta MD - Anesthesia Staff Anesthesia Type: General Procedure(s): INSERTION AV FISTULA--LEFT radial artery to cephalic vein fistula Operative Indications: Dara Weldon is a 18 y.o. year old female who needs permane nt hemodialysis access. She is currently being dialyzed with right IJ catheter. A LEFT arm radial-cephalic fistula was recommended. The indications, alternatives, risks, and benefit s have been discussed with the patient in detail. Risks include bleeding, infection, damage to surrounding structures, failure to mature, arterial steal, hand dysfunction, additional procedures, life-threatening events, and unforeseen complications. The patient and/or guard joseph understands and consents to proceed. Operative Findings: LEFT radial artery 3-3.5 mm. LEFT cephalic vein 4-4.5 mm. Obese fore arm. Barely palpable thrill. Moderate by doppler. Operation: The patient was taken to the operating room where general laryngeal mask anesth esia was administered. The LEFT radial artery and cephalic vein were mapped out with ultras ound. The LEFT arm was prepped and draped in sterile fashion. The cephalic vein was inter rogated with ultrasound. It was adequate size down to the distal forearm. A vertical incisio n was performed between the location of the cephalic vein and the radial artery on the dista l forearm. The cephalic vein was identified and followed distally to a branch point. It was ligated distal to the branch point and divided. Spatulated through the branch point. I deliv ered a 4.0 mm coronary dilator up the cephalic vein without difficulty. The radial artery was identified, defined and looped proximally and distally. It had a fair pulse. Patient was given Heparin 5,000 units IVP. After a 3 minute circulation time, the radial artery was occluded. A vertical arteriotomy was performed. I was able to get a 3.5 mm coronary dilator proximally and distally in the radial artery. There was pulsatile inflow a nd good backbleeding. An end-to-side anastomosis was then accomplished between the vein and the artery using 6-0 Prolene suture in running fashion. Prior to completing the anastomosis, the artery was forward bled and back bled. The vein was flushed with heparinized saline. It flowed easily. The anastomosis was completed. Flow was restored to the radial artery. There was a good pulse in the radial artery. There was a moderate thrill in the cephalic vein. T his was confirmed with Doppler. Hemostasis was achieved. The course of the cephalic vein w as inspected. There was no evidence of kinking or compression. The wound was irrigated with antibiotic solution. The subcutaneous tissue approximated with 3-0 Vicryl suture in running fashion. Skin was closed with 4-0 Vicryl in subcuticular fashi on. A dry, sterile dressing was applied to the wound. The drapes were removed. The patient w as awakened and transferred to the recovery room in stable condition with a good Doppler bru it in the cephalic vein and well perfused hand. Estimated Blood Loss: Minimal Transfused: no Drains: None Specimen (s): * No specimens in log * Complications: none Disposition: PACU - hemodynamically stable. Patient Condition: stable Electronically Signed by: Blake Chavarria MD, 02/24/2014 10:21 documented in this encounter Plan of Treatment [...] | | | | mmol/L | [facility] | | | | | | [...] + + + + + + | eGFR, | Comment: GFR not | >=60 | [facility] | | | non- | calculated for this age | mL/min/1.73m2 | [facility] | | | [place] | (<18). | | MEDICAL | | | | | | CENTER - | | | | | | LABORATORY | | + + + + + + | Calcium | 8.8 | 8.3 - 10.5 | [facility] | | | | | mg/dL | [facility] | | [...] | + + + + + | [facility] | [address] | [place], [place] | [phone] | | [facility] | | [id number] | | | - LABORATORY | | | | + + + + + | [facility] | [address] | [place], [place] | | | [facility] | | [id number] | | | - LABORATORY [...]
--- OUTSIDE RECORDS SUMMARY | ~2019-12-25 | XMS | Encounter Summary ---
Demographics + + + | Address | [address] | | | [place] [address] | + + + | Home Phone [...] Team Providers + +------+ + | Care Telephone Order Supervisor Name | Role | Phone | + +------+ + PCP | Unavailable | + +------+ + Encounter Details +--------+ + + + + | Date | Type | Department | Care Team | Description | +--------+ + + + + | 07/09/ | Hospital | [facility] | Colten Hutchins MD | AV fistula | | 2017 | Encounter | [facility] | [address] | thrombosis, initial | | | | CLINICAL DECISION | [place], [place] | encounter ([facility]) | | | | [address] | [address] | | | | | [place], [place] | | | | | | [address] | | | | | | [phone] | | | +--------+ + + + [...] 07/09/161821 Date of Service: 07/09/161820 Status: Signed Button Attaching Machine Operator: Catherine Lenz RN (Registered Nurse) Patient stable at time of discharge. Final dose of IV Solu-Medrol given, tolerated well. Fi stula CDI, thrill felt on palpation, no bleeding or hematoma noted. Patient and mom educated on monitoring fistula and to call provider with any questions or concerns. IV dc'd, bandage applied. Discharged to private vehicle. docume nted in this encounter Consult Notes Colten Hutchins MD - 07/09/2016 1:48 PM PDT Consult* by Colten Hutchins MD PhD at 07/09/16 9109 Author: Colten Hutchins MD PhD Service: Interventional Radiology Author Type: Physician Filed: 07/09/16 1410 Date of Service: 07/09/16 9613 Status: Signed Button Attaching Machine Operator: Colten Hutchins MD PhD (Physician) Vascular & Interventional Radiology Consult Note Patient Name: Dara Weldon Date of : 1995 Requesting Provider: Hal Camp Consulting Provider: Colten Hutchins Reason for Referral and Chief Complaint: Clotted fistula History of Present Illness: Dara Weldon is a 21 y.o. female. I was asked to see Dara for evaluation of thrombos ed AV fistula. Pt known to me. 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 Simon 04/08/14 then [place] perficialized 06/24/14. Myself and others have intervened multiple times on the fistula which has a recurrent perianastomotic cephalic stenosis for which I placed a 6 mm x 4 cm Epic apryl f expanding stent 10/31/14 with instent restenosis requiring intervention on 08/12/[address] Diaz; at that time, she also had mid cephalic stenosis requiring 10 mm angioplasty . Pt tells me her fistula has been working well until last night. She believes she may have s lept on it. Her last dialysis run was yesterday. She called Dr. Camp last night and he c alled the PCC at [facility] today. She has a contrast allergy. Hospital Problem List: Patient Active Problem List Diagnosis HSP (Henoch Schonlein purpura) ([facility]) ESRD on hemodialysis ([facility]) Review of Systems: Review of Systems Constitutional: Negative. HENT: Negative. Respiratory: Negative. Cardiovascular: Negative. Gastrointestinal: Negative. Genitourinary: Negative. Musculoskeletal: Negative. Skin: Negative. Endo/Heme/Allergies: Negative. All other systems negative. Code Status: Prior Past Medical History: Past Medical History Diagnosis Date HSP (Henoch-Schonlein purpura) nephritis Hypertension Clotted dialysis access ([facility]) 2014 ESRD (end stage renal disease) ([facility]) Anemia Past Surgical History: Past Surgical History Procedure Laterality Date Av fistula placement Renal biopsy Laparoscopic peritoneal dialysis catheter insertion x2 Abdominal surgery Laparoscopic peritoneal dialysis catheter insertion Right 07/2013 current dialysis access MWF dialysis Superficialization of av fistula Left 06/24/2014 Procedure: AV FISTULA - SUPERFICIALIZATION; Surgeon: Rik Simon MD; Location: [facility] MAIN OR; Service: Vascular; Laterality: Left; Av fistula placement Left 04/08/2014 Procedure: AV FISTULA; Surgeon: Rik Simon MD; Location: [facility] MAIN OR; Service: Vascul ar; Laterality: Left; cephalic Dialysis fistula creation N/A 04/08/2014 Procedure: DIALYSIS CATHETER - INSERTION; Surgeon: Rik Simon MD; Location: [facility] R; Service: Vascular; Laterality: N/A; tunneled catheter Av fistula repair Left 03/07/2014 Procedure: AV FISTULA - GRAFT REPAIR/REVISION; Surgeon: Rik Simon MD; Location: [facility] OR; Service: Vascular; Laterality: Left; Declot graft Left 03/07/2014 Procedure: GRAFT - DECLOT; Surgeon: Rik Simon MD; Location: [facility] OR; Service: Va scular; Laterality: Left; Family History: History reviewed. No pertinent family history. Social History: Social History Social History Marital Status: Single Spouse Name: N/A Number of Children: N/A Years of Education: N/A Social History Main Topics Smoking status: Current Every Day Smoker -- 0.50 packs/day for .5 years Smokeless tobacco: None Alcohol Use: Yes Comment: occassional Drug Use: Yes Special: Marijuana Sexual Activity: Not Asked Other Topics Concern None Social History Narrative Medications and Allergies: Current Medications: alteplase 8 mg Intracatheter Once heparin (porcine) 5000 unit/mL 1,000 Units Intracatheter Once lidocaine 20 mL Intradermal Once lidocaine buffered 1% 0.5 mL Intradermal Once methylPREDNISolone 125 mg Intravenous Q6H sodium chloride 10 mL Intravenous Q8H sodium chloride 10 mL Intravenous Q8H (Not in a hospital admission) @ENCMED@ Allergies: Allergies Allergen Reactions Fentanyl Itching Iodinated Diagnostic Agents Itching Pt c/o face itching during fistulagram Morphine Rash Tape [Adhesive Tape] Rash Use silk tape only Labs: 3 Day Labs: Recent Labs Lab 07/09/16 1316 INR 1.0 Imaging/Procedures: Pertinent Studies and Results Imaging Data: No results found. Physical Examination: Filed Vitals: 07/09/16 1255 BP: 129/78 Pulse: 68 Temp: 96.9 F (36.1 C) Resp: 20 SpO2: 98% Physical Exam Constitutional: She is well-developed, well-nourished, and in no distress. No distress. HENT: Head: Normocephalic and atraumatic. Eyes: EOM are normal. Pupils are equal, round, and reactive to light. Neck: Normal range of motion. Neck supple. No JVD present. No tracheal deviation present. Cardiovascular: Normal rate and regular rhythm. Left upper arm fistula has hammer pulse at the AV anastomosis without thrill or pulsatility . Pulmonary/Chest: Effort normal. No respiratory distress. Abdominal: Soft. She exhibits no distension. Plan for Sedation: IV Conscious Sedation with Fentanyl and Versed. Moderate Sedation Presedation Assessment completed. ASA Classification: ASA 3: Patient with a severe systemic disease Mallampati Classification: II: Visibility of hard and soft palate, upper portion of tonsil s and uvula Consent: Risks, alternatives, and benefits of the procedure were discussed with the patient. Questio ns were answered. Signed and verbal consent were given as witnessed by staff. Pre-Procedure Diagnosis: Thrombose AV fistula Procedure to be performed: Fistulagram with declot Assessment and Plan: Thrombosed left AV fistula-will plan fistulagram with declot and any necessary intervention . Premedicate with benadryl and solumedrol. Colten Ball, PhD Interventional Radiology and Vascular Medicine Vascular and Interventional Radiology Available 26/09 through our clinic 509 documented in th is encounter ED Notes Conversion Transaction, Provider Unknown - 07/09/2016 1:08 PM PDTFormatting of this note m ight be different from the original. ED Notes by Sherry Weinstein RN at 07/09/16 1308 Author: Sherry Weinstein RN Service: (none) Author Type: Registered Nurse Filed: 07/09/16 1308 Date of Service: 07/09/16 1308 Status: Signed Button Attaching Machine Operator: Sherry Weinstein RN (Registered Nurse) Pt reports last food or drink 07/08/16 at 2200. Sherry Weinstein RN 07/09/16 1308 onver arturo Transaction, Provider Unknown - 07/09/2016 1:00 PM PDT ED Notes by Sherry Weinstein RN at 07/09/16 1300 Author: Sherry Weinstein RN Service: (none) Author Type: Registered Nurse Filed: 07/09/16 1303 Date of Service: 07/09/16 1300 Status: Signed Button Attaching Machine Operator: Sherry Weinstein RN (Registered Nurse) Dr. Wade at bedside. Pt states "my fistula is clotted." Reports having dialysis yesterda y and fistula working. Pt states "I think I slept on it wrong. If I cough I get a sharp pa in." No palpable thrill upon eval. Denies any fever/chills, n/v, SOB or CP. Sherry Weinstein RN 07/09/16 8755 Nicolleofhailee , Lawrence Evans DO - 07/09/2016 12:59 PM PDTFormatting of this note might be different from dari burnham original. ED Provider Notes by Lawrence Wade DO at 07/09/16 2912 Author: Lawrence Wade DO Service: Emergency Department Author Type: Physician Filed: 07/09/16 3618 Date of Service: 07/09/16 5942 Status: Signed Button Attaching Machine Operator: Lawrence Wade DO (Physician) [facility] Department of Emergency Medicine 12:59 PM History of Present Illness Patient Identification Dara Weldon is a 21 y.o. female. Patient information was obtained from patient and parent. History/Exam limitations: none. Patient presented to the Emergency Department by: Car Chief Complaint Chief Complaint Patient presents with Vascular Access Problem "I need emergency surgery on my fistula" MWF dialysis pt with LUE fistula, concerned fist sugar is "clotted off" The patient presents to ED with complaints of fistula complaint. Onset of symptoms was yest erday, with a constant course since that time. The symptoms are described to be of 3/10 in s everity. The patient describes the quality and location of the symptoms as the following: pa in and swelling around her fistula in the left upper extremity. The patient has a history of end stage renal disease and has been on dialysis for 4 years. The patient reports that she believes that there is a clot in her fistula and there is a increase in pain and swelling. T he patient has a history of prior clot in her fistula. The patient reports that her last cole lysis was yesterday and they were able to complete it. Last night after dialysis the patient reports that she could no longer feel the thrill in her fistula. The patient is unsure the cause of the loss of thrill in her fistula but reports that she had changes in blood pressur e after dialysis. Dr Simon, vascular, placed the fistula and Dr Hutchins, interventional radiology , placed a stent in the fistula previously. Nothing makes the patient's symptoms better. Co ughing makes the patient's symptoms worse. The patient also complains of pain and swelling i n the fistula in the upper left arm. Patient denies nausea, vomiting, diarrhea, chills, diap horesis, or rhinorrhea. No known care [employer]. The patient reports she was taken off a donor lis t for kidney transplant. The patient has a history of HSP and HTN. The patient admits tobacc o and marijuana use and denies alcohol use. The patient denies taking blood thinners. The sindy hamilton has no further complaints at this time. PCP: TIEN NICHOLSON Past Medical History Diagnosis Date HSP (Henoch-Schonlein purpura) nephritis Hypertension Clotted dialysis access ([facility]) 2014 ESRD (end stage renal disease) ([facility]CC) Anemia Past Surgical History Procedure Laterality Date Av fistula placement Renal biopsy Laparoscopic peritoneal dialysis catheter insertion x2 Abdominal surgery Laparoscopic peritoneal dialysis catheter insertion Right 07/2013 current dialysis access MWF dialysis Superficialization of av fistula Left 06/24/2014 Procedure: AV FISTULA - SUPERFICIALIZATION; Surgeon: Rik Simon MD; Location: [facility] OR; Service: Vascular; Laterality: Left; Av fistula placement Left 04/08/2014 Procedure: AV FISTULA; Surgeon: Rik Simon MD; Location: [facility] OR; Service: Vascul ar; Laterality: Left; cephalic Dialysis fistula creation N/A 04/08/2014 Procedure: DIALYSIS CATHETER - INSERTION; Surgeon: Rik Simon MD; Location: [facility] O R; Service: Vascular; Laterality: N/A; tunneled catheter Av fistula repair Left 03/07/2014 Procedure: AV FISTULA - GRAFT REPAIR/REVISION; Surgeon: Rik Simon MD; Location: [facility] OR; Service: Vascular; Laterality: Left; Declot graft Left 03/07/2014 Procedure: GRAFT - DECLOT; Surgeon: Rik Simon MD; Location: [facility] OR; Service: Va scular; Laterality: Left; Prior to Admission medications Medication [...] tape only Social History Social History Marital Status: Single Spouse Name: N/A Number of Children: N/A Years of Education: N/A Occupational History Not on file. Social History Main Topics Smoking status: Current Every Day Smoker -- 0.50 packs/day for .5 years Smokeless tobacco: Not on file Alcohol Use: Yes Comment: occassional Drug Use: Yes Special: Marijuana Sexual Activity: Not on file Other Topics Concern Not on file Social History Narrative History reviewed. No pertinent family history. Review of Systems Constitutional: Negative for fever, chills Eyes: Negative for vision changes Nose: Negative for congestion, nosebleeds Throat: Negative for sore throat CV/Resp: Negative for chest pain, [id number], cough GI: Negative for abdominal pain, nausea, vomiting, or diarrhea : Negative for urinary problems Musculoskeletal: Positive for pain and swelling around left upper extremity fistula Negative for back pain, joint pain Skin: Negative for rash Neuro/Psych: Negative for headache Endo/heme/Lymph: Negative for swollen lymph nodes, easy bruising All other systems reviewed and negative except as noted. Physical Exam BP 129/78 mmHg | Pulse 68 | Temp(Src) 96.9 F (36.1 C) | Resp 20 | Wt 96.9 kg (213 lb 10 oz) | SpO2 98% Vital signs interpretation: WNL Pulse Oximetry interpretation: Normal General: Alert, in no apparent distress Eyes: Normal inspection, pupils equal and round, non-icteric ENT: Ears normal Nose normal Pharynx normal Neck: Normal inspection Supple Cardiovascular: Rate and rhythm normal No murmurs Respiratory: Breath sounds normal bilaterally No rales, wheezing or rhonchi Abdomen: Soft, non-tender, non-distended No guarding or rebound Obese Genitourinary: Deferred Rectal exam: Deferred Back: Normal inspection Extremities: AV fistula in the left upper extremity with no palpable or auditory thrill Skin: Color normal Warm and dry No rash Neuro: Alert, no AMS No gross motor/sensory deficits Medical Decision Making and Emergency Department Course ED Department Course Patient presents to ED with complaints of fistula problem. On exam the patient has a fistul a in the left upper extremity with no palpable or auditory thrill. Exam and history are cons istent with occluded AV fistula. Will order labs, IV fluids, and reevaluate the patient. 1:[address] Hutchins, interventional radiology, who has already spoken with his team about this and he will take the patient to the oil laboratory analyst to try and remove the clot. 1:45 PM Rechecked the patient, and who is stable and feeling okay at this time. Dr Hutchins has come and spoken with the patient and ordered the IR AV fistulagram. She is agreeable with t he care plan. 1:54 PM INR is normal. BMP shows renal failure and is otherwise unremarkable. 1:59 PM APTT is low at 19, CBC is unremarkable. Medications sodium chloride 0.9 % flush 10 mL (10 mLs Intravenous Given 07/09/16 1337) lidocaine 1 % injection 20 mL (not administered) heparin (porcine) 5000 unit/mL injection 1,000 Units (not administered) methylPREDNISolone (Solu-MEDROL) injection 125 mg (not administered) lidocaine buffered 1% injection 0.5 mL (not administered) sodium chloride 0.9 % flush 10 mL (not administered) alteplase (CATHFLO ACTIVASE) injection 8 mg (not administered) promethazine (PHENERGAN) IVPB 25 mg (not administered) famotidine (PEPCID) IVPB 20 mg (not administered) diphenhydrAMINE (BENADRYL) injection 50 mg (not administered) Filed Vitals: 07/09/16 1247 07/09/16 1255 BP: 129/78 Pulse: 68 Temp: 96.9 F (36.1 C) Resp: 20 Weight: 96.9 kg (213 lb 10 oz) 96.9 kg (213 lb 10 oz) SpO2: 98% Records Reviewed Old medical records. Nursing notes. No previous ED visits Laboratory Evaluation Results Procedure Component Value Ref Range Date/Time CBC with differential [[id number]] (Abnormal) Collected: 07/09/16 1316 Order Status: Completed Specimen Information: Blood Updated: 07/09/16 1359 WBC 8.70 3.80 - 11.00 K/uL RBC 3.77 3.70 - 5.10 M/uL HGB 14.2 11.3 - 15.5 g/dL HCT 40.9 34.0 - 46.0 % MCV 108.5 (H) 80.0 - 100.0 fl MCH 37.8 (H) 27.0 - 34.0 pg MCHC 34.8 32.0 - 35.5 g/dL RDW SD 58.6 (H) 37 - 53 fl PLT 159 150 - 400 K/uL MPV 9.5 fl DIFF TYPE AUTOMATED NEUTROPHILS 64.46 % LYMPHOCYTES 26.39 % MONOCYTES 4.78 % EOSINOPHILS 3.37 % BASOPHILS 1.00 % NEUTROPHILS ABS 5.61 1.90 - 7.40 K/uL LYMPHOCYTES ABS 2.30 1.00 - 3.90 K/uL MONOCYTES ABS 0.42 0.00 - 0.80 K/uL EOSINOPHILS ABS 0.29 0.00 - 0.50 K/uL BASOPHILS ABS 0.09 0.00 - 0.10 K/uL MORPHOLOGY RBC AND PLT MORPHOLOGY APPEAR NORMAL Platelet Estimate ADEQUATE aPTT [[id number]] (Abnormal) Collected: 07/09/161315 Order Status: Completed Specimen Information: Blood Updated: 07/09/16 1358 APTT 19 (L) 23 - 32 seconds Basic metabolic panel [[id number]] (Abnormal) Collected: 07/09/161315 Order Status: Completed Specimen Information: Blood Updated: 07/09/16 1354 SODIUM 135 135 - 145 mmol/L POTASSIUM 4.9 3.5 - 4.9 mmol/L CHLORIDE 99 99 - 109 mmol/L CO2 24 23 - 32 mmol/L ANION GAP AGAP 18 5 - 20 mmol/L GLUCOSE 82 65 - 99 mg/dL BUN 30 (H) 8 - 25 mg/dL CREATININE 7.9 (H) 0.50 - 1.00 mg/dL BUN/CREAT 4 CALCIUM 10.0 8.5 - 10.5 mg/dL EGFR 7 (L) >60 mL/min/1.73m2 Protime [[id number]] Collected: 07/09/161315 Order Status: Completed Specimen Information: Blood Updated: 07/09/16 1349 INR 1.0 I personally reviewed the lab results and they have been posted to the chart. Pertinent po sitive and negative findings have been addressed appropriately. Radiology and EKG Evaluation Imaging Results None ED Diagnosis Final diagnosis AV fistula thrombosis, initial encounter (HCC) Associated Orders METHYLPREDNISOLONE SODIUM SUCC 125 MG IJ SOLR DIPHENHYDRAMINE HCL 50 MG/ML IJ SOLN LIDOCAINE (BUFFERED) 1 % IJ SYRINGE SALINE FLUSH 0.9 % IV SOLN ORDERABLE ALTEPLASE 2 MG IJ SOLR PROMETHAZINE HCL 25 MG/25 ML IV SOLN FAMOTIDINE IN NACL 20-0.9 MG/50ML-% IV SOLN DIPHENHYDRAMINE HCL 50 MG/ML IJ SOLN Disposition: ED Disposition Admit/Observation Bed request special needs: None Diagnosis?: AV fistula occlusion Follow-up Information None Discharge Medications: New Prescriptions No new medications Procedures Additional Documentation Procedures Attending Note: Documentation assistance provided by Cristal Bennett (Scribe). Information recorded by the scribe has been reviewed and validated by me. Antonieta rowland with its contents. Signed by: Héctor Moroe 07/09/2016, 2:39 PM DO Lawrence Dewey DO 07/09/16 7906 documented in th is encounter Miscellaneous Notes Op Note - Colten Hutchins MD - 07/09/2016 4:04 PM PDT Brief Op Note by Colten Hutchins MD PhD at 07/09/16 1600 Author: Colten Hutchins MD PhD Service: Interventional Radiology Author Type: Physician Filed: 07/09/16 4044 Date of Service: 07/09/16 1604 Status: Signed Button Attaching Machine Operator: Colten Hutchins MD PhD (Physician) Interventional Radiology Post Procedure Note Patient Name: Dara Weldon Date of : 1995 Procedure(s): left upper arm fistulagram, declot and drug eluting balloon angioplasty Pre OP Diagnosis: left brachiocephalic fistula thrombosis Post OP Diagnosis: same Interventional Radiologist: Colten Hutchins MD Anesthesia Type: IV Conscious Sedation with Fentanyl and Versed. Findings: Thrombosed by ultrasound beginning at the perianastomotic cephalic venous outflow at site of recurrent stenosis and stent placement. Thrombolysis, rheolytic thrombectomy and 6 mm x 4 cm Lutonix drug coated balloon angioplasty within the stent. Druze of vigoro us flow. Specimens: none EBL: minimal Complications: None PLAN: return to dialysis A full report will follow in the imaging section. Colten Hutchins MD, PhD Interventional Radiologist and Vascular Medicine Specialist documented in th is encounter Plan of [...] At | + + + | Successful oriental orthodox of flow within the left brachiocephalic | [...] | The microaccesses were exchanged to 6 Tongan sheaths. Patient was | | | heparinized. [...] | | stent. Intraprocedural fistulogram was demonstrated oriental orthodox of | | | flow but severe [...] PRIMARY INTERVENTIONAL RADIOLOGIST: Colten Hutchins, | | MD, PhD PROCEDURES PERFORMED:1. Left upper extremity limited [...] access. The microaccesses were exchanged to 6 Tongan sheaths. Patient was | | heparinized. Via [...] stent. Intraprocedural fistulogram was | | demonstrated oriental orthodox of flow but severe recurrent in-stent restenosis [...] central veins are widely patent. IMPRESSION: Successful oriental orthodox of flow within the | | left [...] At | + + + | Successful oriental orthodox of flow within the left brachiocephalic | [...] | The microaccesses were exchanged to 6 Tongan sheaths. Patient was | | | heparinized. [...] | | stent. Intraprocedural fistulogram was demonstrated oriental orthodox of | | | flow but severe [...] access. The microaccesses were exchanged to 6 Tongan sheaths. Patient was | | heparinized. Via [...] stent. Intraprocedural fistulogram was | | demonstrated oriental orthodox of flow but severe recurrent in-stent restenosis [...] central veins are widely patent. IMPRESSION: Successful oriental orthodox of flow within the | | left [...] | Patient | performed at [facility] | | LAB | | | | [address];[place] | | | | | | [address] | | | | + + + [...] | | | performed at [facility] | | | | | | [address];[place], [place] | | | | | | [address] | | | | + + + [...] + + + + | Non- | 3.77 | 3.70 - 5.10 | [...] | Estimate | performed at [facility] | | LAB | | | | [address];[place], [place] | | | | | | [address] | | | | + + + [...] | | | | at [facility];[address] [place] [address] | | | | | | [facility];[place] [address] | | | | + + + [...]
--- OUTSIDE RECORDS SUMMARY | ~2019-12-25 | XMS | Encounter Summary ---
Demographics + + + | Address | [address] | | | [place] [address] | + + + | Home Phone [...] Author | [facility] | | | and [place] | + + + | Organization | [facility] | [...] Providers + +------+ + | Care Supervisor Costuming Name | Role | Phone | + +------+ + | Jonathan Alonso MD | PCP | | + +------+ + Encounter Details +--------+ + + + + | Date | Type | Department | Care Team | Description | +--------+ + + + + | 03/27/ | Orders Only | [facility] | Rik Simon MD | | | 2015 | | VASCULAR SURGERY | [address] | | | | | ULTRAS[address] | [place], [place] | | | | | [address] [place] [address] | [address] | | | | | [place], [place] | [phone] | | | | | [address] | | | | | | [phone] | | | +--------+ + + + [...] Procedure Note | + + | Cedric, Sonido Conversion - 10/26/2018 12:36 PM PDT DARA [...]
--- OUTSIDE RECORDS SUMMARY | ~2019-12-25 | XMS | Encounter Summary ---
Demographics + + + | Address | [address] | | | [place] [address] | + + + | Home Phone [...] Author | [facility] | | | and [place] | + + + | Organization | [facility] | | [...] Providers + +------+ + | Care Director Alliance Marketing Name | Role | Phone | [...] | Required | Surgery | renal | , FACS | GENEVA [address]ME[address] | | | | | disease | [address] | [address] | | | | | ([facility]) | [place], | | | | | Procedures | [place], [place] | [place] [address] | | | | | [place] | [address] | Phone: | | | | | ANASTOMOSIS, | Phone: | [phone] | | | | | AV,ANY SITE | [phone] | Fax: | | | | | | Fax: | [phone] | | | | | | [phone] | | +--------+ + + + + [...] stage renal | DO [address] | , FACS [address] | | | | | disease) | [address] | [address] | | | | | ([facility]) | [address] | [place], | | | | | | [place], | [place] [address] | | | | | | [place] [address] | Phone: | | | | | | Phone: | [phone] | | | | | | [phone] | Fax: | | | | | | Fax: | [phone] | | | | | | [phone] | | +--------+ + + + + + Encounter Details +--------+---------+ + + + | Date | Type | Department | Care Team | Description | +--------+---------+ + + + | 02/20/ | Office | [facility] | Blake Chavarria | End stage renal | | 2013 | Visit | SURGERY [address] | MD Antonieta, FACS [address] | disease (HCC) | | | | [address] [place] [facility], [place] | [address] [facility] | (Primary Dx) | | | | [address] | [place] [address] | | | | | [phone] | [phone] | | | | | | | [...] Blake Chavarria MD - 02/20/2014 11:15 AM benjamín Ashraf surgery has been scheduled for: Monday, Feb 24, 2014 Pre-op Labs: None EKG: None CXR: None Bowel Prep? NO DO NOT EAT OR DRINK ANYTHING AFTER MIDNIGHT before your surgery. This means No coffee, kenny er, juice or toast on the morning of your surgery. You may take essential medicines with a small sip of water. Special Medication Instructions: none On Monday, Feb 24, 2014, go to the admitting office at 6 [...] 18 y.o. female , a patient of Shaihd Camargo. Patient is here alone. Chief Complaint: Chief Complaint Patient presents with New Patient AV fistula HISTORY OF PRESENT ILLNESS Patients Preliminary Questionaire: Have you started dialysis yet? yes How many years have been dialyzed? 2 years Are you a candidate for kidney transplantation? yes Who is your Primary Care ? Shahid Camargo Who is your Internal Medicine Nurse Practitioner/Kidney Specialist ? Dr. Camp When was the current dialysis access placed? July 2013 at [facility] What problems are there with the current dialysis access? 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 Patient used to have PD catheter for dialysis 2012--[facility] in [place] . Came out Jul, 2013 . Then got RIGHT IJ catheter. Also got catheter at [facility]. Live in [place]. Go es to [place] in [place] for dialysis. Now needs AVF. Is RIGHt hand dominant. No pains in hands. 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 Currently on [facility] for kidney transplant. Wants AVF [...] ed for acceptable candidacy. Will f/u with [facility] Transplant Team. Shahid Camargo's notes were not available to be reviewed in clinic today. PAST MEDICAL HISTORY Past Medical History She has a past medical history of HSP (Henoch-Schonlein purpura) nephritis ([facility]) (1987) and ESRD (end stage renal disease) ([facility]). Past Surgical History She Past Surgical History [...] REPORT: PATIENT NAME : Dara Weldon EQUIPMENT: SonAppaturete M-Turbo with 10-5 mHertz probe. INDICATIONS: Dialysis [...] Camargo documented in this encounter Miscellaneous Notes Miscellaneous - ELANA [facility] - 02/20/2014 12:00 AM PST documented in this encounter Plan of Treatment + + +--------+ + + | Name | Type | Priori | Associated Diagnoses | Order Schedule | | | | ty | | | + + +--------+ + + | * [facility] | Outpatient | Routin | End stage [...]
--- OUTSIDE RECORDS SUMMARY | ~2019-12-25 | XMS | Encounter Summary ---
Demographics + + + | Address | [address] | | | [place] [address] | + + + | Home Phone [...] + | Author | [facility] | | | and [place] | + + + | Organization | [facility] | | | [...] Providers + +------+ + | Care Data Control Assistant Name | Role | Phone | [...] [address] | | | | | ([facility]) | [address] | [address] | | | | | Anemia in | [place], [place] | [place], | | | | | ESRD | [address] | [place] [address] | | | | | (end-stage | Phone: | Phone: | | | | | renal | [phone] | [phone] | | | | | disease) | Fax: | Fax: | | | | | ([facility]) | [phone] | [phone] | | | | | Procedures | | | | | | | [place] ESRD | | | | | | [...] DO [address] | renal disease) ([facility]) | | | | [address] | [address] [place] | (Primary Dx) | | | | [place], [place] | [place] [address] | | | | | [address] | [phone] | | | | | [phone] | | | +--------+ + + + [...] | Blood Pressure | 147/94 | 04/23/2018 6:37 PM | | | | | PST | | + + + + + | Pulse | - | - | | + + + + + | Temperature | 36.2 C (97.2 F) | 04/23/2018 6:37 PM | | | | | PST [...] Progress Notes Jorje Camp DO - 04/23/2018 9:45 AM PST Subjective: DIALYSIS NOTE Patient ID: [...] the 04/23/18 encounter (Off-Site Visit) with Camille Camp, DO [...] Will recheck her in 2 weeks. : Portal Fina Alonso MD, PhD documented in thi s encounter Plan of Treatment Not on filedocumented as of this encounter Visit Diagnoses + + | Diagnosis | + + | ESRD (end stage renal disease) (HCC) - Primary End stage renal disease | + + documented in this encounter"
--- OUTSIDE RECORDS SUMMARY | ~2019-12-25 | XMS | Encounter Summary ---
Demographics + + + | Address | [address] | | | [place] [address] | + + + | Home Phone [...] | Author | [facility] | | | and [place] | + + + | Organization | [facility] | | | [...] Team Providers + +------+ + | Care Gas Treater Name | Role | Phone | + +------+ + | Jonathan Alonso MD | PCP | | + +------+ + Reason for Visit + +--------+ + | Reason | Onset | Comments | | | Date | | + +--------+ + | Appointment | 12/17/ | Appointment with PCP needed | | | 2018 | | + +--------+ + Encounter Details +--------+ + + + + | Date | Type | Department | Care Team | Description | +--------+ + + + + | 12/17/ | Telephone | [facility] | [place], | Appointment | | 2019 | | CENTER CASE | Irish Obrien CMA | (Appointment with | | | | MANAG[address] | | PCP needed) | | | | [address] | | | | | | [place], [place] | | | | | | [address] | | | | | | [phone] | | | +--------+ + + + [...] this encounter Miscellaneous Notes Telephone Encounter - Irish Fonseca CMA - 12/17/2018 3:03 PM PDTAt the request of the sepsis team, I have contacted the patient to see if she has scheduled an appointment wi th her PCP. When I spoke with Dara, she reports that she has not scheduled with Dr. Alonso at this time. I encouraged her to contact the office and let her know that it is important that she do so. I reminded patient of her pulmonology appointment tomorrow. documented in this encounter Plan of Treatment Not on filedocumented as of this encounter Visit Diagnoses Not on filedocumented in this encounter"
--- OUTSIDE RECORDS SUMMARY | ~2019-12-25 | XMS | Encounter Summary ---
Demographics + + + | Address | [address] | | | [place] [address] | + + + | Home Phone [...] | Author | [facility] | | | and [place] | + + + | Organization | [facility] | | [...] Team Providers + +------+ + | Care Electricians Top Helper Name | Role | Phone | [...] [address] [place] | | | | | [place], [place] | [place] [address] | | | | | [address] | [phone] | | | | | [phone] | | | +--------+--------+ + + + [...] Diagnoses Not on filedocumented in this encounter Additional Health Concerns + + + + + | Infection | Onset Date | Last Indicated | Resolved Time | + + + + + | Rule out COVID-19 | 10/14/2019 | 10/14/2019 | 10/14/2019 2:02 AM | | | | | PDT | + + + + + documented as of this encounter"
--- OUTSIDE RECORDS SUMMARY | ~2019-12-25 | XMS | Encounter Summary ---
Demographics + + + | Address | [address] | | | [place] [address] | + + + | Home Phone [...] Providers + +------+ + | Care Lead Burner Supervisor Name | Role | Phone | + +------+ + PCP | Unavailable | + +------+ + Encounter Details +--------+ + + + + | Date | Type | Department | Care Team | Description | +--------+ + + + + | 08/25/ | Off-Site | [facility] [place] | Jorje Camp | ESRD (end stage | | 2015 | Visit | NEPHROLOGY [address] | M, DO [address] | renal disease) ([facility]) | | | | [address] | [address] [place] | (Primary Dx); | | | | [place], [place] | [place] [address] | Anemia in ESRD | | | | [address] | [phone] | (end-stage renal | | | | [phone] | | disease) ([facility]) [...] this encounter Progress Jorje Grissom DO - 09/20/2014 4:33 PM PDT Subjective: [...] into the vein Three times a w nooksack. iron sucrose (VENOFER) 20 mg/mL injection Inject [...] the Nephrology Team in 2 weeks. CC: [place] Fina Joy MD, Renal Transplant [facility], [facility] signed by Jorje Camp DO at 09/20/2014 4:38 PM PDTdocumented in this encount er Plan of Treatment Not on filedocumented as of this encounter Visit Diagnoses + + | Diagnosis | + + | ESRD (end stage renal disease) ([facility]) - Primary End stage renal disease | + + | Anemia in ESRD (end-stage renal disease) ([facility]) Anemia in chronic kidney disease | + + documented in this encounter"
--- OUTSIDE RECORDS SUMMARY | ~2019-12-25 | XMS | Encounter Summary ---
Demographics + + + | Address | [address] | | | [place] [address] | + + + | Home Phone [...] Team Providers + +------+ + | Care Ceiling Insulation Blower Name | Role | Phone | [...] [address] [place] | | | | | [place], [place] | [place] [address] | | | | | [address] | [phone] | | | | | [phone] | | | +--------+ + + + [...]
--- OUTSIDE RECORDS SUMMARY | ~2019-12-25 | XMS | Encounter Summary ---
Demographics + + + | Address | [address] | | | [place] [address] | + + + | Home Phone [...] + | Author | [facility] | | | and [place] | + + + | Organization | [facility] | | | [...] Team Providers + +------+ + | Care Underwear Finisher Name | Role | Phone | [...] [address] | | | | | ([facility]) | [address] | [address] | | | | | Anemia in | [place], [place] | [place], | | | | | ESRD | [address] | [place] [address] | | | | | (end-stage | Phone: | Phone: | | | | | renal | [phone] | [phone] | | | | | disease) | Fax: | Fax: | | | | | ([facility]) | [phone] | [phone] | | | | | Procedures | [...] | 04/27/ | Off-Site | [facility] [place] | Jorje Camp | ESRD (end stage | | 2016 | Visit | NEPHROLOGY [address] | M, DO [address] | renal disease) ([facility]) | | | | [address] | [address] [place] | (Primary Dx) | | | | [place], [place] | [place] [address] | | | | | [address] | [phone] | | | | | [phone] | | | +--------+ + + + [...] maturity level is the main deterrent? CC: Naked Wines Fina documented in thi s encounter Plan of Treatment Not on filedocumented as of this encounter Visit Diagnoses + + | Diagnosis | + + | ESRD (end stage renal disease) (HCC) - Primary End stage renal disease | + + documented in this encounter"
--- OUTSIDE RECORDS SUMMARY | ~2019-12-25 | XMS | Encounter Summary ---
Demographics + + + | Address | [address] | | | [place] [address] | + + + | Home Phone [...] Team Providers + +------+ + | Care Pit Laborer Name | Role | Phone | + +------+ + PCP | Unavailable | + +------+ + Encounter Details +--------+ + + + + | Date | Type | Department | Care Team | Description | +--------+ + + + + | 08/16/ | Documentati | [facility] | Jorje Camp | | | 2015 | on | NEPHROLOGY [address] | M, DO [address] | | | | | [address] | [address] [place] | | | | | [place], [place] | [place] [address] | | | | | [address] | [phone] | | | | | [phone] | | | +--------+ + + + [...] in her mid left upper arm AVF. GO CART MECHANIC today = 230 mmHg. In view of this will start her on ASA 81 mg, QD, and Plavix 75 mg, daily for prevention of AVF thrombosis, given the former indwelling stent. She was called by chute builderElisabeth SAMUELS to begin above. : [facility] documented in this encounter Plan of Treatment Not on filedocumented as of this encounter Visit Diagnoses Not on filedocumented in this encounter
--- OUTSIDE RECORDS SUMMARY | ~2019-12-25 | XMS | Encounter Summary ---
Demographics + + + | Address | [address] | | | [place] [address] | + + + | Home Phone [...] Providers + +------+ + | Care Research Chemical Engineer Name | Role | Phone | + +------+ + PCP | Unavailable | + +------+ + Encounter Details +--------+ + + + + | Date | Type | Department | Care Team | Description | +--------+ + + + + | 02/05/ | Orders Only | [facility] | Jorje Camp | | | 2017 | | NEPHROLOGY [address] | M, DO [address] | | | | | [address] | [address] [place] | | | | | [place], [place] | [place] [address] | | | | | [address] | [phone] | | | | | [phone] | | | +--------+ + + + [...]
--- OUTSIDE RECORDS SUMMARY | ~2019-12-25 | XMS | Encounter Summary ---
Demographics + + + | Address | [address] | | | [place] [address] | + + + | Home Phone [...] | Author | [facility] | | | and [place] | + + + | Organization | [facility] | | [...] Team Providers + +------+ + | Care Lathe Turner Name | Role | Phone | + +------+ + PCP | Unavailable | + +------+ + Encounter Details +--------+ + + + + | Date | Type | Department | Care Team | Description | +--------+ + + + + | 01/19/ | Abstract | [facility] | Jorje Camp | | | 2017 | | NEPHROLOGY [address] | M, DO [address] | | | | | [address] | [address] [place] | | | | | [place], [place] | [place] [address] | | | | | [address] | [phone] | | | | | [phone] | | | +--------+ + + + [...] PSTOutside record: New Patient Starter Program Macario jagjit DOS 01-17-17. Sent to scanning. 9 :02 AM PSTdocumented in this encounter Plan of Treatment Not on filedocumented as of this encounter Visit Diagnoses Not on filedocumented in this encounter"
--- OUTSIDE RECORDS SUMMARY | ~2019-12-25 | XMS | Encounter Summary ---
Demographics + + + | Address | [address] | | | [place] [address] | + + + | Home Phone [...] Team Providers + +------+ + | Care Turner Splitter Machine Operator Name | Role | Phone | + +------+ + PCP | Unavailable | + +------+ + Encounter Details +--------+ + + + + | Date | Type | Department | Care Team | Description | +--------+ + + + + | 05/29/ | [facility] | [facility] | Conversion | End stage renal | | 2015 | Encounter | CENTER IR INTRA OP | Transaction, | disease (HCC) | | | | [address] | Provider Unknown | | | | | [place], [place] | | | | | | [address] | (Fax) | | | | | [phone] | | | +--------+ + + + [...] Progress Notes Conversion Transaction, Provider Unknown - 05/29/2014 4:49 PM PDTFormatting of this note m ight be different from the original. Nurse Progress Note by Mesha Clark RN at 05/29/141648 Author: Mesha Clark RN Service: (none) Author Type: Registered Nurse Filed: 05/29/144 Date of Service: 05/29/141648 Status: Signed Notcher: Mesha Clark RN (Registered Nurse) Discharge criteria met s/p HD cath exchange. Discharge instructions given to patient and fa ozzy, all questions answered and understanding stated. Discharged with family. docume nted in this encounter H&P Notes Manny Whaley MD, MD - 05/29/2014 3:43 PM PDTFormatting of this note might be diffe rent from the original. H&P by Darryn Whaley MD at 05/29/14 5610 Author: Darryn Whaley MD Service: Interventional Radiology Author Type: Physician Filed: 05/29/14 1548 Date of Service: 05/29/141542 Status: Signed Notcher: Darryn Whaley MD (Physician) [facility] Service: Interventional Radiology Admission History & Physical Date of Admission: 05/29/2014 Reason for Admission: Non functioning tunneled dialysis catheter. History Obtained From: patient CHIEF COMPLAINT: Poor flow in tunneled dialysis catheter. HISTORY OF PRESENT ILLNESS The patient is a 19 y.o. female with significant past medical history of ESRD on HD via ri t subclavian dialysis cathetere who presents with Poor flow. She also had left BC fistula awaiting superficialization. Needs new funtioning catheter. REVIEW OF SYSTEMS Negative except for pertinent items noted in HPI. Past Medical History Diagnosis Date HSP (Henoch-Schonlein purpura) nephritis Hypertension Past Surgical History Procedure Laterality Date Av fistula placement Renal biopsy Laparoscopic peritoneal dialysis catheter insertion x2 Abdominal surgery Av fistula repair Left 03/07/2014 Procedure: AV FISTULA - GRAFT REPAIR/REVISION; Surgeon: Rik Simon MD; Location: [facility] OR; Service: Vascular; Laterality: Left; Declot graft Left 03/07/2014 Procedure: GRAFT - DECLOT; Surgeon: Rik Simon MD; Location: [facility]; Service: Va scular; Laterality: Left; Av fistula placement Left 04/08/2014 Procedure: AV FISTULA; Surgeon: Rik Simon MD; Location: [facility]; Service: Vascul ar; Laterality: Left; cephalic Dialysis fistula creation N/A 04/08/2014 Procedure: DIALYSIS CATHETER - INSERTION; Surgeon: Rik Simon MD; Location: [facility]; Service: Vascular; Laterality: N/A; tunneled catheter Allergies Allergen Reactions Morphine Rash (Not in a hospital admission) No family history on file. History Social History Marital Status: Single Spouse Name: N/A Number of Children: N/A Years of Education: N/A Occupational History Not on file. Social History Main Topics Smoking status: Never Smoker Smokeless tobacco: Not on file Alcohol Use: No Drug Use: No Sexual Activity: Not on file Other Topics Concern Not on file Social History Narrative PHYSICAL EXAM There were no vitals taken for this visit. General appearance: alert, appears stated age and [...] extremities normal, atraumatic, no cyanosis or edema Neurologic: Grossly normal Left arm BC fistula noted waiting maturation. DATA CBC: Lab Results Component Value Date WBC 4.9 04/07/2014 RBC 3.67* 04/07/2014 HGB 13.0 04/07/2014 HCT 38.3 04/07/2014 MCV 104.3* 04/07/2014 MCH 35.4* 04/07/2014 MCHC 33.9 04/07/2014 RDW 48.1 04/07/2014 PLT 157 04/07/2014 MPV 9.3 04/07/2014 DIFFTYPE AUTOMATED 04/07/2014 BMP: Lab Results Component Value Date NA 139 04/08/2014 K 4.1 04/08/2014 CL 102 04/08/2014 CO2 28 04/08/2014 ANIONGAP 13 04/08/2014 GLUF 87 04/08/2014 BUN 32* 04/08/2014 CREATININE 8.68* 04/08/2014 BCR 4 04/08/2014 CA 8.8 04/08/2014 EGFR CALCULATION NOT PERFORMED. RESULT NOT VALID IF AGE LT 20 YEARS. 04/08/2014 PROBLEM LIST Active Problems: * No active hospital problems. * ASSESSMENT & PLAN 19 yr old female with ESRD on HD with right upper chest non functioning tunneled cath and n eeds exchange. Disposition: [facility] Code Status: Prior Primary Care Physician: OCTAVIO Whaley MD 05/29/2014 documented i n this encounter Plan of [...] Successful | | | placement of a 14.5-Slovenian dual-lumen 19-cm tunneled hemodialysis | | | catheter with its tip in the upper portion of the right atrium without | | | incidence. 12123, 14563, 46591, 70588-44 Electronically | | | signed by Darryn [...] jugular vein. 3. Placement of 19 cm, 14.5-Slovenian | | | dual-lumen tunneled palindrome hemodialysis [...] conscious sedation and | | | independent usp supervision of the conscious sedation was | [...] records. 3. Upper chest radiograph shows dual-lumen, 14.5-Slovenian, | | | 19-cm, tunneled dialysis catheter [...] | micropuncture needle and exchanged for a 4-Slovenian micropuncture sheath | | | over a 0.018 wire. Skin in the infraclavicular region was | | | infiltrated with 1% lidocaine and a 5-mm skin incision was made. A | | | 14.5-Slovenian, dual-lumen, 19-cm tunneled hemodialysis catheter was | | | placed a subcutaneous tunnel using a metallic tunneler. The 4-Slovenian | | | sheath was exchanged for a 0.035, 3-mm J-wire with its tip in the | | | right atrium under fluoroscopy guidance. The skin and subcutaneous | | | tract was dilated using at 12 and 14-Slovenian facial dilators. A | | | 15-Slovenian peel-away sheath was placed over the wire [...] vein.3. Placement of 19 | | cm, 14.5-Slovenian dual-lumen tunneled palindrome hemodialysis catheter in the [...] maintenance of adequate conscious sedation and independent usp | | supervision of the conscious sedation [...] Upper chest radiograph shows dual-lumen, | | 14.5-Slovenian, 19-cm, tunneled dialysis catheter with its tip [...] needle and exchanged for | | a 4-Slovenian micropuncture sheath over a 0.018 wire. Skin in the infraclavicular region | | was infiltrated with 1% lidocaine and a 5-mm skin incision was made. A 14.5-Slovenian, | | dual-lumen, 19-cm tunneled hemodialysis catheter was placed a subcutaneous tunnel using | | a metallic tunneler. The 4-Slovenian sheath was exchanged for a 0.035, 3-mm J-wire with | | its tip in the right atrium under fluoroscopy guidance. The skin and subcutaneous tract | | was dilated using at 12 and 14-Slovenian facial dilators. A 15-Slovenian peel-away sheath | | was placed over [...] veins.2. Successful placement | | of a 14.5-Slovenian dual-lumen 19-cm tunneled hemodialysis catheter with its tip in the | | upper portion of the right atrium without incidence. 79113, 82921, 87178, 90524-26 | | | |2. Successful placement of a 14.5-Slovenian dual-lumen 19-cm tunneled hemodialysis catheter w ith its tip in the upper portion of the right atrium without incidence. | | | |97229, [address], 10105, 06088-62 | | | | | + + documented in this encounter Visit Diagnoses + + | Diagnosis | + + | End stage renal disease (HCC) End stage renal disease | + + documented in this encounter"
--- OUTSIDE RECORDS SUMMARY | ~2019-12-25 | XMS | Encounter Summary ---
Demographics + + + | Address | [address] | | | [place] [address] | + + + | Home Phone [...] Team Providers + +------+ + | Care Aviation Project Manager Name | Role | Phone [...] Encounter | CONVERSION | MD Emanuel [address] [facility] | | | | | DEPART[address] | [address] | [address] | | [address] | [place], [place] | | | | | [place], [place] | [address] | | | | | [address] | [phone] | | | | | [phone] | | | +--------+ + + + [...]
--- OUTSIDE RECORDS SUMMARY | ~2019-12-25 | XMS | Encounter Summary ---
Demographics + + + | Address | [address] | | | [place] [address] | + + + | Home Phone [...] [facility] | | | and [place] | + + + | Organization | [facility] | | | and [...] Providers + +------+ + | Care Flat Bed Knitter Name | Role | Phone | + +------+ + PCP | Unavailable | + +------+ + Encounter Details +--------+ + + + + | Date | Type | Department | Care Team | Description | +--------+ + + + + | 08/12/ | Hospital | [facility] | Conversion | ESRD (end stage | | 2016 | Encounter | CENTER CV INTRA OP | Transaction, | renal disease) | | | | [address] | Provider Unknown | ([facility]); ESRD on | | | | [place], [place] | [phone] | hemodialysis ([facility]) | | | | [address] | | | | | | [phone] | Doyle Diaz MD | | | | | | [address] | | | | | | [place], [place] | | | | | | [address] | | | | | | | [...] 08/13/151114 Date of Service: 08/13/151114 Status: Signed End Packer: Taylor Acuna RN (Registered Nurse) Pt discharged home with family. VSS. Taylor Acuna RN docume nted in this encounter H&P Notes Doyle Diaz MD - 08/13/2015 7:40 AM PDT H&P by Doyle Diaz MD at 08/13/15739 Author: Doyle Diaz MD Service: Interventional Radiology Author Type: Physician Filed: 08/13/15 0742 Date of Service: 08/13/15739 Status: Signed End Packer: Doyle Diaz MD (Physician) Interventional Radiology H&P [...] Diagnosis HSP (Henoch Schonlein purpura) ([facility]) ESRD on hemodialysis ([facility]) Review of Systems: Negative except HPI Code Status: Prior Past Medical History: Past Medical History Diagnosis Date HSP (Henoch-Schonlein purpura) nephritis Hypertension Clotted dialysis access ([facility]) 2014 ESRD (end stage renal disease) ([facility]) Anemia Past Surgical History: Past Surgical History Procedure Laterality Date Av fistula placement Renal biopsy Laparoscopic peritoneal dialysis catheter insertion x2 Abdominal surgery Av fistula repair Left 03/07/2014 Procedure: AV FISTULA - GRAFT REPAIR/REVISION; Surgeon: Rik Simon MD; Location: [facility]; Service: Vascular; Laterality: Left; Declot graft Left 03/07/2014 Procedure: GRAFT - DECLOT; Surgeon: Rik Simon MD; Location: [facility] OR; Service: Va scular; Laterality: Left; Av fistula placement Left 04/08/2014 Procedure: AV FISTULA; Surgeon: Rik Simon MD; Location: [facility] OR; Service: Vascul ar; Laterality: Left; cephalic Dialysis fistula creation N/A 04/08/2014 Procedure: DIALYSIS CATHETER - INSERTION; Surgeon: Rik Simon MD; Location: [facility]; Service: Vascular; Laterality: N/A; tunneled catheter Laparoscopic peritoneal dialysis catheter insertion Right 07/2013 current dialysis access MWF dialysis Superficialization of av fistula Left 06/24/2014 Procedure: AV FISTULA - SUPERFICIALIZATION; Surgeon: Rik Simon MD; Location: [facility] OR; Service: Vascular; Laterality: Left; Family History: [...] Date of Service: 08/13/15 1023 Status: Signed End Packer: Doyle Diaz MD (Physician) Interventional Radiology Post Procedure Note Patient Name: Dara Weldon Date of : 1995 Pre OP Diagnosis: Clotted left arm AVF Post OP Diagnosis: Poor flow of left arm AVF Procedure: Left arm AVF venogram; balloon angioplasty Interventional Radiologist: Doyle Diaz MD Emergency Department Director: None Anesthesia Type: Moderate sedation Findings: High-grade [...] ANGIOPLASTY AV FISTULA VENOUS | | | COMPOSITION SIDING WORKER: Doyle Diaz MD CONSENT: The risks, benefits [...] guidewire combination, a 4 | | | Ugandan angled catheter was advanced and positioned into [...] a | | | guidewire, a 6 Ugandan sheath was advanced and positioned into the [...] a | | | guidewire, a 7 Ugandan sheath was advanced and positioned into the [...] IR ANGIOPLASTY | | AV FISTULA VENOUS COMPOSITION SIDING WORKER: Doyle Diaz MD CONSENT: The risks, benefits [...] catheter guidewire combination, a | | 4 Ugandan angled catheter was advanced and positioned into [...] | | ANGIOPLASTY:Over a guidewire, a 6 Ugandan sheath was advanced and positioned into the [...] Over | | a guidewire, a 7 Ugandan sheath was advanced and positioned into the [...] ANGIOPLASTY AV FISTULA VENOUS | | | COMPOSITION SIDING WORKER: Doyle Diaz MD CONSENT: The risks, benefits [...] guidewire combination, a 4 | | | Ugandan angled catheter was advanced and positioned into [...] a | | | guidewire, a 6 Ugandan sheath was advanced and positioned into the [...] a | | | guidewire, a 7 Ugandan sheath was advanced and positioned into the [...] IR ANGIOPLASTY | | AV FISTULA VENOUS COMPOSITION SIDING WORKER: Doyle Diaz MD CONSENT: The risks, benefits [...] catheter guidewire combination, a | | 4 Ugandan angled catheter was advanced and positioned into [...] | | ANGIOPLASTY:Over a guidewire, a 6 Ugandan sheath was advanced and positioned into the [...] Over | | a guidewire, a 7 Ugandan sheath was advanced and positioned into the [...] LAB | | | | [place] [facility] [place] | | | | | | [facility];[place], [place] | | | | | | [address] | | | | + + + [...] ESRD (end stage renal disease) ([facility]) End stage renal disease | + + | ESRD on hemodialysis (HCC) End stage renal disease | + + documented in this encounter"
--- OUTSIDE RECORDS SUMMARY | ~2019-12-25 | XMS | Encounter Summary ---
Demographics + + + | Address | [address] | | | [place] [address] | + + + | Home Phone [...] Author | [facility] | | | and [place] | + + + | Organization | [facility] | | [...] Providers + +------+ + | Care Funeral Workers Name | Role | Phone | [...] | | | | Anemia in | [place], [place] | [place], | | | | | ESRD | [address] | [place] [address] | | | | | (end-stage | Phone: | Phone: | | | | | renal | [phone] | [phone] | | | | | disease) | Fax: | Fax: | | | | | ([facility]) | [phone] | [phone] | | | | | Procedures | | | | | | | [place] OFFICE | | | | | | [...] | 08/21/ | Off-Site | [facility] [place] | Jorje Camp | ESRD (end stage | | 2018 | Visit | NEPHROLOGY [address] | M, DO [address] | renal disease) ([facility]) | | | | [address] | [address] [place] | (Primary Dx) | | | | [place], [place] | [place] [address] | | | | | [address] | [phone] | | | | | [phone] | | | +--------+ + + + [...] uding the charge nurse, staff nurses, PCT's, pipe assembly worker, dietitian myself she fails to heed [...] today in Plan: 1. Will continue to behavioral health counselor her about her high risk for cardiovascular morbidity and compl ications given her lack of full compliance with her treatment. 2. The renal BILLING REPRESENTATIVE has been attempting to reach her. However, as above she continuously spu rs any sound advice. 3. Will recheck her in 2 weeks. : [facility] documented in thi s encounter Plan of Treatment Not on filedocumented as of this encounter Visit Diagnoses + + | Diagnosis | + + | ESRD (end stage renal disease) (HCC) - Primary End stage renal disease | + + documented in this encounter"
--- OUTSIDE RECORDS SUMMARY | ~2019-12-25 | XMS | Encounter Summary ---
Demographics + + + | Address | [address] | | | [place] [address] | + + + | Home Phone [...] Providers + +------+ + | Care Glass Products Inspector Name | Role | Phone | [...] | CON[address] | | | | | [address] | [place] | | | | | [place], [place] | [place] [address] | | | | | [address] | [phone] | | | | | [phone] | | | +--------+ + + + [...] 0.39 m/s | | | MV Dec Toole: 9.46 m/s2 MV DecT: 106.01 ms MV E Shahid: 1.00 | | | m/s MV E/A Ratio: 2.54 E/E' Sept: 23.82 E' Lat: 0.08 m/s | | | E' Sept: 0.04 m/s RAP: 15 mmHg RV S': 0.11 m/s RVSP: | | | 67.64 mmHg TR maxP.64 mmHg TR Vmax: 3.61 m/s | | | Dialysis Rn: Authenticated by: René Noonan MD Report Date/Time: | | | -- 06_2-5-3011_94:15:25 | | + + + + + [...] (A-L): 31.60 | | ml/m2LAAs A2C: 18.56 [id number] A-L A2C: 58.49 mlLAESV MOD A2C: 54.57 mlLALs A2C: | | 5.00 cmLAAs A4C: 17.96 [id number] A-L A4C: 52.99 mlLAESV MOD A4C: 44.93 mlLALs A4C: | | 5.18 cmLAESV(MOD BP): 49.83 mlRAAs: 18.33 [id number] A-L: 57.01 mlRAESV MOD: | | 56.24 mlRALs: 5.02 cmTAPSE: 1.98 cmAV Env.Ti: 227.35 msAV maxP.22 mmHgAV | | meanP.25 mmHgAV Vmax: 1.59 m/Elizabeth Vmean: 1.06 m/Elizabeth VTI: 24.30 cmAVA Vmax: | | 2.68 cm2AVA (VTI): 2.73 qi2GFUH Vmax: 0.00 cm2/m2AVAI (VTI): 0.00 cm2/m2LVOT | | Env.Ti: 210.72 msLVOT maxP.99 mmHgLVOT meanP.87 mmHgLVSI Dopp: 37.17 | | ml/m2LVSV Dopp: 66.54 mlLVOT Vmax: 1.41 m/sLVOT Vmean: 1.03 m/sLVOT VTI: 21.88 | | cmMV A Shahid: 0.39 m/sMV Dec Toole: 9.46 m/s2MV DecT: 106.01 msMV E Shahid: 1.00 | | m/sMV E/A Ratio: 2.54E/E' Sept: 23.82E' Lat: 0.08 m/sE' Sept: 0.04 m/sRAP: 15 | | mmHgRV S': 0.11 m/sRVSP: 67.64 mmHgTR maxP.64 mmHgTR Vmax: 3.61 m/s | | Dialysis Rn:Authenticated by: René HARPEReport Date/Time: 09_2-8-4808_64:15:25 | | IMPRESSION: 1. Overall left ventricular [...] A Shahid: 0.39 m/s | |MV Dec Toole: 9.46 m/s2 | |MV DecT: 106.01 ms | |MV E Shahid: 1.00 m/s | |MV E/A Ratio: 2.54 | |E/E' Sept: 23.82 | |E' Lat: 0.08 m/s | |E' Sept: 0.04 m/s | |RAP: 15 mmHg | |RV S': 0.11 m/s | |RVSP: 67.64 mmHg | |TR maxP.64 mmHg | |TR Vmax: 3.61 m/s | | | |Dialysis Rn: | |Authenticated by: René Noonan MD | |Report Date/Time: 04_7-2-9661_26:15:25 | | | |IMPRESSION: | |1. Overall [...]
--- OUTSIDE RECORDS SUMMARY | ~2019-12-25 | XMS | Encounter Summary ---
Demographics + + + | Address | [address] | | | [place] [address] | + + + | Home Phone [...] + | Author | [facility] | | | and [place] | + + + | Organization | [facility] | | | [...] Providers + +------+ + | Care Fur Trimmer Name | Role | Phone | + +------+ + PCP | Unavailable | + +------+ + Encounter Details +--------+ + + + + | Date | Type | Department | Care Team | Description | +--------+ + + + + | 06/11/ | Hospital | [facility] | | | | 2008 - | Encounter | MED CTR OP REHAB | | | | | | [address] [place] | | | | 07/03/ | | [place] [address] | | | | 2008 | | [phone] | | | +--------+ + + + [...]
--- OUTSIDE RECORDS SUMMARY | ~2019-12-25 | XMS | Encounter Summary ---
Demographics + + + | Address | [address] | | | [place] [address] | + + + | Home Phone [...] Author | [facility] | | | and [place] | + + + | Organization | [facility] | | | and [...] Team Providers + +------+ + | Care Rag Room Supervisor Name | Role | Phone [...] Encounter | CONVERSION | MD Emanuel [address] [facility] | | | | | DEPARTMENT [address] | [place] [address] | | [address] | [place], [place] | | | | | [place], [place] | [address] | | | | | [address] | [phone] | | | | | [phone] | | | +--------+ + + + [...]
--- OUTSIDE RECORDS SUMMARY | ~2019-12-25 | XMS | Encounter Summary ---
Demographics + + + | Address | [address] | | | [place] [address] | + + + | Home Phone [...] Team Providers + +------+ + | Care Lung Gun Operator Name | Role | Phone | [...] [address] | | | | | ([facility]) | [address] | [address] | | | | | Anemia in | [place], [place] | [place], | | | | | ESRD | [address] | [place] [address] | | | | | (end-stage | Phone: | Phone: | | | | | renal | [phone] | [phone] | | | | | disease) | Fax: | Fax: | | | | | ([facility]) | [phone] | [phone] | | | | | Procedures | [...] DO [address] | renal disease) ([facility]) | | | | [address] | [address] [place] | (Primary Dx); | | | | [place], [place] | [place] [address] | Anemia in ESRD | | | | [address] | [phone] | (end-stage renal | | | | [phone] | | disease) ([facility]) | +--------+ + + + [...] rechec k her in 2 weeks. CC: Cleveland Fina Joy MD, [facility], [facility] signed by Jorje Camp DO at 01/20/2015 5:14 PM PSTdocumented in this encount er Plan of Treatment Not on filedocumented as of this encounter Visit Diagnoses + + | Diagnosis | + + | ESRD (end stage renal disease) ([facility]) - Primary End stage renal disease | + + | Anemia in ESRD (end-stage renal disease) (HCC) Anemia in chronic kidney disease | + + documented in this encounter"
--- OUTSIDE RECORDS SUMMARY | ~2019-12-25 | XMS | Encounter Summary ---
Demographics + + + | Address | [address] | | | [place] [address] | + + + | Home Phone [...] Author | [facility] | | | and [place] | + + + | Organization | [facility] | | [...] Team Providers + +------+ + | Care Managed Security Sales Consultant Name | Role | Phone | + +------+ + PCP | Unavailable | + +------+ + Encounter Details +--------+ + + + + | Date | Type | Department | Care Team | Description | +--------+ + + + + | 03/19/ | Hospital | [facility] | Bolivar Mcqueen MD | | | 2009 | Encounter | HOSPITAL EMERGENCY | | | | | | CENTER [address] [place], [place] | | | | | | [address] | | | | | | [phone] | | | +--------+ + + + [...]
--- OUTSIDE RECORDS SUMMARY | ~2019-12-25 | XMS | Encounter Summary ---
Demographics + + + | Address | [address] | | | [place] [address] | + + + | Home Phone [...] Team Providers + +------+ + | Care Drop Machine Operator Name | Role | Phone | + +------+ + | Jonathan Alonso MD | PCP | | + +------+ + Reason for Visit +--------+--------+ + | Reason | Onset | Comments | | | Date | | +--------+--------+ + | Other | 07/18/ | scheduling | | | 2020 | | +--------+--------+ + Encounter Details +--------+ + + + + | Date | Type | Department | Care Team | Description | +--------+ + + + + | 07/18/ | Telephone | [facility] | Carolina Mahmood DO | Other (scheduling) | | 2020 | | CARDIOLOGY [place] | [address] | | | | | [address] | [address] [place], [place] | | | | | [place], [place] | [address] | | | | | [address] | | | | | | [phone] | | | +--------+ + + + [...] this encounter Miscellaneous Notes Telephone Encounter - Arely Lynn - 07/19/2019 9:46 AM PDTProactive screening for u pcoming office visit to help ensure the clinic environment remains a safe place to receive c are. 1. Patient reports the following symptoms and/or exposure on the epidemic risk screen: none . The patient reported no symptoms or exposure and proceeded with proactive screening process . 2. Have you or someone you are in close contact with been tested for COVID-19?: no 3. Does the patient have MyChart Access?: Yes. Encouraged use of the E-Check In feature. 4. Is the patient allowed a visitor per policy?: no Please be aware that you will be asked these same questions when you arrive at the clinic. If you have any changes in your symptoms between now and your visit, please call us so we c an get you scheduled for an alternative visit before you arrive at the clinic. For your safety and the safety of others, we ask that if you are being seen in person at on e of our clinics you arrive wearing a mask. Hand washing is esquivel to keeping our clinic a safe place to receive care. While you are in ou r clinics you will be asked to perform hand washing at different intervals throughout your v isit. documented in this enc nt Plan of Treatment Not on filedocumented as of this encounter Visit Diagnoses Not on filedocumented in this encounter"
--- OUTSIDE RECORDS SUMMARY | ~2019-12-25 | XMS | Encounter Summary ---
Demographics + + + | Address | [address] | | | [place] [address] | + + + | Home Phone [...] | Author | [facility] | | | and [place] | + + + | Organization | [facility] | | | [...] Providers + +------+ + | Care Chief Engineer Production Name | Role | Phone | [...] | | | | | PRAVINE MCKENZIEA [facility], [place] | [facility] | | | | | [address] | [place] [address] | | | | | [phone] | [phone] | | | | | | | [...]
--- OUTSIDE RECORDS SUMMARY | ~2019-12-25 | XMS | Encounter Summary ---
Demographics + + + | Address | [address] | | | [place] [address] | + + + | Home Phone [...] | [facility] | | | and [place] | + + + | Organization | [facility] [...] Providers + +------+ + | Care Steward/Stewardess [employer] Dining Car Name | Role | Phone | + +------+ + PCP | Unavailable | + +------+ + Encounter Details +--------+ + + + + | Date | Type | Department | Care Team | Description | +--------+ + + + + | 04/07/ | Hospital | [facility] | Conversion | | | 2015 | Encounter | [facility] | Transaction, | | | | | CLINIC [address] | Provider Unknown | | | | | [address] [place], [place] | | | | | | [address] | (Fax) | | | | | [phone] | | | +--------+ + + + [...] 04/07/141855 Date of Service: 04/07/141854 Status: Signed Coffee Attendant: Sulma Alanis RN (Registered Nurse) Called [...] 04/07/141854 Date of Service: 04/07/141750 Status: Addendum Coffee Attendant: Sulma Alanis RN (Registered Nurse) Related [...] EXTERNAL LAB | | Testing performed at [facility];[address] [place] [address];[place] [address] MRSA PCR | | | NEGATIVE Testing performed at | | | [address];[place] [address] | | + + + + +---------+ [...] | | | Patient | performed at [facility];[address] | | LAB | | | | [address];[place] | | | | | | [address] | | | | + + + [...] [facility];[address] | | | | | | [facility];[place], [place] | | | | | | [address] | | | | + + + [...] EXTERNAL | | | | performed at [facility];[address] | | LAB | | | | [address];[place] | | | | | | [address] | | | | + + + + + + | Non- | 3.67 (L)Comment: Testing | 3.70 - 5.10 | EXTERNAL | | | Red Blood | performed at [facility];888 | M/uL | LAB | | | Cells | [address];[place] | | | | | Counted | [address] | | | | + + + + + + | Hemoglobin | 13.0Comment: Testing | 11.3 - 15.5 | EXTERNAL | | | | performed at [facility];888 | g/dL | LAB | | | | [address];[place] | | | | | | [address] | | | | + + + + + + | Hematocrit, | 38.3Comment: Testing | 34.0 - 46.0 % | EXTERNAL | | | POC | performed at [facility];[address] | | LAB | | | | [address];[place] | | | | | | [address] | | | | + + + + + + | MCV | 104.3 (H)Comment: | 80.0 - 100.0 fl | EXTERNAL | | | | Testing performed at | | LAB | | | | [facility];[address];[place] [address] | | | | + + + + + + | MCH | 35.4 (H)Comment: Testing | 27.0 - 34.0 pg | EXTERNAL | | | | performed at [facility];[address] | | LAB | | | | [address];[place] | | | | | | [address] | | | | + + + + + + | MCHC | 33.9Comment: Testing | 32.0 - 35.5 | EXTERNAL | | | | performed at [facility];888 | g/dL | LAB | | | | [address];[place] | | | | | | [address] | | | | + + + + + + | RDW-CV | 48.1Comment: Testing | 37 - 53 fl | EXTERNAL | | | | performed at [facility];[address] | | LAB | | | | [address];[place] | | | | | | [address] | | | | + + + + + + | Platelet | 157Comment: Testing | 150 - 400 K/uL | EXTERNAL | | | Count | performed at [facility];[address] | | LAB | | | Plasma | [address];[place] | | | | | | [address] | | | | + + + + + + | MPV | 9.3Comment: Testing | fl | EXTERNAL | | | | performed at [facility];[address] | | LAB | | | | [address];[place] | | | | | | [address] | | | | + + + + + + | Differentia | AUTOMATEDComment: | | EXTERNAL | | | l Type | Testing performed at | | LAB | | | | [facility];[address];[place] [address] | | | | + + + + + + | % Segmented | 55.8Comment: Testing | % | EXTERNAL | | | | performed at [facility];[address] | | LAB | | | Neutrophils | [address];[place] | | | | | | [address] | | | | + + + + + + | % | 35.8Comment: Testing | % | EXTERNAL | | | Lymphocytes | performed at [facility];[address] | | LAB | | | | [address];[place] | | | | | | [address] | | | | + + + + + + | % Monocytes | 6.0Comment: Testing | % | EXTERNAL | | | | performed at [facility];[address] | | LAB | | | | [address];[place] | | | | | | [address] | | | | + + + + + + | % | 1.9Comment: Testing | % | EXTERNAL | | | Eosinophils | performed at [facility];[address] | | LAB | | | | [address];[place] | | | | | | [address] | | | | + + + + + + | % Basophils | 0.5Comment: Testing | % | EXTERNAL | | | | performed at [facility];[address] | | LAB | | | | [address];[place] | | | | | | [address] | | | | + + + + + + | Absolute | 2.8Comment: Testing | 1.9 - 7.4 K/uL | EXTERNAL | | | Segmented | performed at [facility];[address] | | LAB | | | Neutrophils | [address];[place] | | | | | | [address] | | | | + + + + + + | Absolute | 1.8Comment: Testing | 1.0 - 3.9 K/uL | EXTERNAL | | | Lymphocytes | performed at [facility];[address] | | LAB | | | | [address];[place] | | | | | | [address] | | | | + + + + + + | Absolute | 0.3Comment: Testing | 0 - 0.8 K/uL | EXTERNAL | | | Monocytes | performed at [facility];[address] | | LAB | | | | [address];[place] | | | | | | [address] | | | | + + + + + + | Absolute | 0.1Comment: Testing | 0 - 0.5 K/uL | EXTERNAL | | | Eosinophils | performed at [facility];[address] | | LAB | | | | [address];[place] | | | | | | [address] | | | | + + + + + + | Absolute | 0.0Comment: Testing | 0 - 0.1 K/uL | EXTERNAL | | | Basophils | performed at [facility];[address] | | LAB | | | | [address];[place] | | | | | | [address] | | | | + + + [...] | | | QUALITATIVE | performed at [facility];[address] | | LAB | | | | [address];[place], [place] | | | | | | [address] | | | | + + + [...] EXTERNAL | | | | performed at [facility];888 | mmol/L | LAB | | | | [address];[place], [place] | | | | | | [address] | | | | + + + + + + | K | 3.3 (L)Comment: Testing | 3.5 - 4.9 | EXTERNAL | | | | performed at [facility];888 | mmol/L | LAB | | | | [address];[place] | | | | | | [address] | | | | + + + + + + | Cl | 99Comment: Testing | 99 - 109 mmol/L | EXTERNAL | | | | performed at [facility];[address] | | LAB | | | | [address];[place] | | | | | | [address] | | | | + + + + + + | CO2 | 29Comment: Testing | 23 - 32 mmol/L | EXTERNAL | | | | performed at [facility];[address] | | LAB | | | | [address];[place] | | | | | | [address] | | | | + + + + + + | Anion Gap | 13Comment: Testing | 5 - 20 mmol/L | EXTERNAL | | | | performed at [facility];[address] | | LAB | | | | [address];[place] | | | | | | [address] | | | | + + + + + + | Glucose, | 92Comment: Testing | 65 - 99 mg/dL | EXTERNAL | | | Fasting | performed at [facility];[address] | | LAB | | | | [address];[place] | | | | | | [address] | | | | + + + + + + | BUN | 30 (H)Comment: Testing | 8 - 25 mg/dL | EXTERNAL | | | | performed at [facility];[address] | | LAB | | | | [address];[place] | | | | | | [address] | | | | + + + + + + | Creatinine | 7.21 (H)Comment: Testing | 0.50 - 1.00 | EXTERNAL | | | | performed at [facility];888 | mg/dL | LAB | | | | [address];[place] | | | | | | [address] | | | | + + + + + + | BUN/Creatin | 4Comment: Testing | | EXTERNAL | | | ine Ratio | performed at [facility];[address] | | LAB | | | | [address];[place] | | | | | | [address] | | | | + + + + + + | Calcium | 8.3 (L)Comment: NOTE NEW | 8.5 - 10.5 | EXTERNAL | | | | REFERENCE RANGETesting | mg/dL | LAB | | | | performed at [facility];[address] | | | | | | [address];[place] | | | | | | [address] | | | | + + + [...] [facility];[address] | | | | | | [address];[place] | | | | | | [address] | | | | + + + [...]
--- OUTSIDE RECORDS SUMMARY | ~2019-12-25 | XMS | Encounter Summary ---
Demographics + + + | Address | [address] | | | [place] [address] | + + + | Home Phone [...] Team Providers + +------+ + | Care Tracer Powder Blender Name | Role | Phone | + [...] + + | 03/21/ | Telephone | [facility] | George Torres RN | DME (CMN O2) | | 2020 | | [address] | | | | | | [place] | | | | | | [address] | | | | | | [phone] | | | +--------+ + + + [...] 10:47 AM PSTReceived CMN for O2 from [facility]. Sent to Dr. Kowalski for review and signature.Electronically signed by ABRIL Pulido 03/21/2019 10:48 AM PSTdocumented in this encounter Plan of Treatment Not on filedocumented as of this encounter Visit Diagnoses Not on filedocumented in this encounter"
--- OUTSIDE RECORDS SUMMARY | ~2019-12-25 | XMS | Encounter Summary ---
Demographics + + + | Address | [address] | | | [place] [address] | + + + | Home Phone [...] Team Providers + +------+ + | Care Breast Trimmer Name | Role | Phone | [...] [address] [place] | [place] [address] | | | | | [address] [place] | [phone] | | | | | [address] | | | | | | [phone] | | | +--------+ + + + [...]
--- OUTSIDE RECORDS SUMMARY | ~2019-12-25 | XMS | Encounter Summary ---
Demographics + + + | Address | [address] | | | [place] [address] | + + + | Home Phone [...] Providers + +------+ + | Care Junior Staff Accountant Name | Role | Phone | + [...] [address] | | | | | [place], [place] | [place] [address] | | | | | [address] | [phone] | | | | | [phone] | | | +--------+ + + + [...] of this encounter Progress Marilyn Jennings - 02/07/2014 3:03 PM PSTHemodialysis progress note e-faxed to Jamil Levi in Dialysis [facility], Lianna Joy [facility] pediatric nephrology at [facility] Renal Cruz splant [facility] on 02/07/14. Daniela Ibarra MD - 01/24/2014 2:48 PM PSTFormatting of this note might be different fr om the original. Comprehensive Dialysis Monthly Note Date of visit: 01/24/2014 Dialysis Clinic: [facility] Mode of dialysis: Hemodialysis Dialysis prescription: MWF, [...] Noted ESRD (end stage renal disease) ([facility]) Priority: High Note Last Updated: 11/22/2013 Due to Henoch-Schonlein purpura. On hemodialysis, started July 2013. Prior, was on peritoneal dialysis, started 2012. Access: R chest catheter. Re-referred to [facility] transplant in Oct 2013 by pediatric critical care nurse. Peritonitis, dialysis-associated (HCC) 07/29/2013 Note Last Updated: 07/29/2013 Due to MSSA. Had tunneled infection as well. PD catheter removed in July 2013. On Keflex till 08/01/13. History of Henoch-Schonlein purpura Note Last Updated: 07/29/2013 Diagnosed at age 10[address] Joy, pediatric critical care nurse. Anemia in ESRD (end-stage renal disease) [...] [facility] Transplant Team. cc: Lucille Griffin [facility] Dr. Lianna Joy, [facility] Pediatric Nephrology [facility] Renal transplant documented in this encounter Plan [...]
--- OUTSIDE RECORDS SUMMARY | ~2019-12-25 | XMS | Encounter Summary ---
Demographics + + + | Address | [address] | | | [place] [address] | + + + | Home Phone [...] Providers + +------+ + | Care Chemical Plant Operator Name | Role | Phone [...] | | | | | | [place] | | | | | | | [...] Fistula | | | | [address] | [place] | Creation | | | | [place] | [place] [address] | | | | | [address] | [phone] | | | | | [phone] | | | +--------+---------+ + + + [...] might be different f rom the original. [facility] POST-OP INSTRUCTIONS: Arterio-Venous Fistula 1. Keep the [...] pain, ask for a daily dose. Chante cliftoner that acetaminophen or other pain relievers may interact with prescription medicines or other awfq-pwk-tjjqhof (OTC) drugs. The FDA recommends reading OTC medication labels careful ly to clearly understand the list of active ingredients, directions, and any precautions to help avoid taking too muchacetaminophen. If you have questions, ask your pharmacist or a [facility] care provider. Managing Nausea Some people [...] or skin changes (rash, itching, or hives). 8962-[address] [employer]. [address] [place] [address]. All righ ts reserved. This information is [...] Chavarria MD - 02/24/2014 7:47 AM PST [facility] Vannessa Hurd [place] SURGICAL INTERIM HISTORY AND PHYSICAL UPDATE Pt. [...] signed by: Blake Chavarria, 02/24/2014 7:47 [facility] ield, Blake Fung MD - 02/20/2014 10:16 [...] Care ? Shahid Camargo Who is your Lotteries Agent/Kidney Specialist ? Dr. Camp When was the current dialysis access placed? July 2013 at [facility] What problems are there with the current dialysis access? 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 Patient used to have PD catheter for dialysis 2012--[facility] in [place] . Came out Jul, 2013 . Then got RIGHT IJ catheter. Also got catheter at [facility]. Live in [place]. Go es to [facility] for dialysis. Now needs AVF. Is RIGHt hand dominant. No pains in hands. 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 Currently on [facility] for kidney transplant. Wants AVF in [...] ed for acceptable candidacy. Will f/u with [facility] Transplant Team. Shahid Camargo's notes were not available to be reviewed in clinic today. PAST MEDICAL HISTORY Past Medical History She has a past medical history of HSP (Henoch-Schonlein purpura) nephritis (HCC) (1987) and ESRD (end stage renal disease) ([facility]). Past Surgical History She Past [...] REPORT: PATIENT NAME : Dara Weldon EQUIPMENT: SonSMS GupShup-SirenServo with 10-5 mHertz probe. INDICATIONS: Dialysis access [...] Notes Plan of Care - ONBASE SCAN [facility] - 02/25/2014 12:00 AM PST iscellaneous - ONBASE SCAN [facility] - 02/25/2014 12:00 AM PSTElec tronically signed by Jose Chavez at 02/25/2014 1:27 PM PSTMiscellaneous - ONBASE SCAN [facility] - 02/25/2014 12:00 AM PST p Note - Blake Chavarria MD - 02/24/2014 10:[facility]. Name/Age/: Dara Weldon 18 y.o. 1995 Med. Record Number: [id number] Date of admission: 02/24/2014 Date of Operation/Procedure: [...] | | | | | | [facility] | | | | [...] mL/min/1.73m2 | [facility] | | | [place] | (<18). | | MEDICAL | | [...] + | [facility] | [address] | [place], [place] | [phone] | | [facility] | | [address] | | | - LABORATORY | | | | + + + + + | [facility] | [address] | [place], [place] | | | [facility] | | [address] [place] [address] | | | - LABORATORY | | [...]
--- OUTSIDE RECORDS SUMMARY | ~2019-12-25 | XMS | Encounter Summary ---
Demographics + + + | Address | [address] | | | [place] [address] | + + + | Home Phone [...] | Organization | [facility] | | | and [...] Team Providers + +------+ + | Care Mission Support Specialist Name | Role | Phone [...] [address] | | | | | [place], [place] | [place] [address] | | | | | [address] | [phone] | | | | | [phone] | | | +--------+ + + + [...] PSTOutside record: New patient starter program from [facility], dos: 02/12/17. Sent to [facility].Electronically signed by Marilyn Palumbo at 017 8:58 AM PSTdocumented in this encounter Plan of Treatment Not on filedocumented as of this encounter Visit Diagnoses Not on filedocumented in this encounter"
--- OUTSIDE RECORDS SUMMARY | ~2019-12-25 | XMS | Encounter Summary ---
Demographics + + + | Address | [address] | | | [place] [address] | + + + | Home Phone [...] Team Providers + +------+ + | Care Picture Hanger Name | Role | Phone | + +------+ + | Jonathan Alonso MD | PCP | | + +------+ + Encounter Details +--------+ + + + + | Date | Type | Department | Care Team | Description | +--------+ + + + + | 06/13/ | Abstract | [facility] | [facility] | | | 2018 | | [facility] | MD Linda [address] | | | | | KIDNEY TRANSPLANT | [address] [place], | | | | | [address] [place] | [place] [address] | | | | | [address] [place], [place] | [phone] | | | | | [address] | | | | | | [phone] | | | +--------+ + + + [...]
--- OUTSIDE RECORDS SUMMARY | ~2019-12-25 | XMS | Encounter Summary ---
Demographics + + + | Address | [address] | | | [place] [address] | + + + | Home Phone [...] Team Providers + +------+ + | Care Dewaxer Name | Role | Phone | + [...] | | | DEPARTMENT [address] [place] | [place] [address] | | | | | [place], [place] | [phone] | | | | | [address] | | | | | | [phone] | | | +--------+ + + + [...]
--- OUTSIDE RECORDS SUMMARY | ~2019-12-25 | XMS | Encounter Summary ---
Demographics + + + | Address | [address] | | | [place] [address] | + + + | Home Phone [...] Team Providers + +------+ + | [employer] Name | Role | Phone | [...] + + | 01/23/ | Hospital | [facility] | Vivek Teran, | SOB (shortness of | | 2019 - | Encounter | [facility] | MD Brooks Oropeza | breath) (Primary | | | | [phone] | [place] [address] | Dx); ESRD needing | | 01/26/ | | [address] | [phone] | dialysis ([facility]); | | 2019 | | [place], [place] | | Chronic pleural | | | | [phone] | Omar Tirado MD [address] | effusion; | | | | [phone] | [address] | Noncompliance with | | | | | [place] [address] | renal dialysis | | | | | [phone] | ([facility]); Acute | | | | | | respiratory | | | | | Sotero Reinoso MD | distress; Anemia in | | | | | [address] | ESRD (end-stage | | | | | [place], [place] | renal disease) | | | | | [address] | ([facility]); At high risk | | | | | | for electrolyte | | | | | Usha Martínez MD | imbalance; ESRD on | | | | | [address] | hemodialysis ([facility]); | | | | | [place] [address] | Hyperphosphatemia; | | | | | [phone] | Noncompliance; | | | | | [...] might be different from th e original. [facility] Service: Hospitalist Discharge Summary Date of Admission: [...] CHEST AP PORTABLE (01/07/2019); CHEST TWO VIEWS [id number] (01/06/2019); XR CHEST AP PORTABLE (12/13/2018); FINDINGS: [...] the underlying lung. Signed by: Eliza Marinelli, Melissader Sign Date/Time: 01/23/2019 11:26 PM XR Chest AP Portable Narrative CHEST PORTABLE ONE VIEW CLINICAL INFORMATION: Post thoracentesis. COMPARISON: XR CHEST 2 VIEWS (01/23/2019); XR CHEST PA AND LATERAL (01/09/2019); CT CHEST WO CONTRAST (01/07/2019); XR CHEST AP PORTABLE (01/07/2019); CHEST TWO VIEWS [id number] (01/06/2019); FINDINGS: Mild cardiomegaly. No pneumothorax. Interstitial [...] by MUSE READ ONLY, -COMPUTER ([id number]), editor producer Luciano, Daniela ([id number]) on 01/24/2019 5:16: 19 [...] bacteria 12/12/2018 Clotted dialysis access ([facility]) 2014 Congestive heart failure (HCC) ESRD (end stage renal disease) ([facility]) HSP (Henoch-Schonlein purpura) nephritis ([facility]) 1987 Hypertension Pericardial effusion without cardiac tamponade 11/07/2018 Past Surgical History: Procedure Laterality Date ABDOMEN SURGERY AV FISTULA REPAIR 02/24/2014 LEFT Radical Cephalic Fistula Creation; Laterality: Left; Surgeon: Blake Chavarria MD ; Location: [facility] MAIN OR AV FISTULA REPAIR Left 03/07/2014 Procedure: AV FISTULA - GRAFT REPAIR/REVISION; Surgeon: Rik Simon MD; Location: [facility] IN OR; Service: Vascular; Laterality: Left; biopsy of kidney age 10 DIALYSIS FISTULA CREATION 04/08/2014 Procedure: DIALYSIS CATHETER - INSERTION; Surgeon: Rik Simon MD; Location: [facility] MAIN OR ; Service: Vascular; Laterality: N/A; tunneled catheter.br hemodialysis catheter KIDNEY BIOPSY Left 2003 OTHER SURGICAL HISTORY LAPAROSCOPIC PERITONEAL DIALYSIS CATHETER INSERTION - x2 OTHER SURGICAL HISTORY Right 07/2013 LAPAROSCOPIC PERITONEAL DIALYSIS CATHETER INSERTION - current dialysis access MWF dialysis OTHER SURGICAL HISTORY Left 06/24/2014 SUPERFICIALIZATION OF AV FISTULA - Procedure: AV FISTULA - SUPERFICIALIZATION; Surgeon: Emanuel Simon MD; Location: [facility] MAIN OR; Service: Vascular; Laterality: Left; OTHER SURGICAL HISTORY Left 04/08/2014 AV FISTULA PLACEMENT - Procedure: AV FISTULA; Surgeon: Rik Simon MD; Location: [facility] N OR; Service: Vascular; Laterality: Left; cephalic OTHER SURGICAL HISTORY Left 03/07/2014 DECLOT GRAFT - Procedure: GRAFT - DECLOT; Surgeon: Rik Simon MD; Location: [facility] MAIN OR ; Service: Vascular; [...] Follow up: Jonathan Alonso MD [address] [facility] [address] Schedule an appointment as soon as possible [...] 0.5 mLs into | | 0 | 02/26/ | | | (HECTOROL) 2 mcg/mL | [...] tablet by | 60 | 11 | 11/07/20 | | | 6.25 mg tablet | [...] Chronic pleural effusion [J90] Recommendations: No acute 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 Elect ronically signed by Kika Olivarez RN at 01/24/2019 6:11 PM Veena Mckoy RN - 6:26 AM PSTPt has continued to have hypertension since admission, medicated with sc heduled carvedilol as well as PRN hydralazine. Pt also co pain at [facility] site for which she i s medicated x1 with Dilaudid. Pt medicated x1 with PRN Zofran for nausea. Pt continues to be dyspneic with accessory muscle usage when breathing. Oxygen saturations in mid 80's on RA, sats remain >90% on 2L supplemental O2. Chart check complete. Veena García RN documented in this e ncounter H&P Notes Omar Tirado MD - 01/24/2019 2:36 AM PSTFormatting of this note might be different from th e original. [facility] Service: Hospitalist Admission History & Physical Pt: Dara Weldon AGE/SEX: 23 y.o. female ROOM: ED01/ED01 PCP: Jonathan Alonso MD : 1995 TREATMENT TEAM: Treatment Team: Attending Provider: Omar Tirado MD Physician: Omar Tirado MD Registered Nurse: Lori Oneil RN Date of Admission: 01/24/19 Chief Complaint: HPI: 23 y.o. female with past medical history of Henoch swelling purpura, end-stage renal diseas e on hemodialysis Monday, CHF EF 30%, severe pulmonary hypertension, hypert ension, recurrent right pleural effusion who presented with shortness of breath and mild ana st pain on the right the last few [...] status post thoracocentesis 1.5 L drainage in ER. Patient does smoke marijuana almost every day. Denies any other smoking or alcohol ED Meds: Medications midazolam (VERSED) 1 mg/mL injection 2 mg (has no administration in time range) carvedilol (COREG) tablet 12.5 mg (has no administration in time range) HYDROmorphone (DILAUDID) injection 1 mg (has no administration in time range) hydrALAZINE (APRESOLINE) injection 10 mg (has no administration in time range) furosemide (LASIX) injection 80 mg (has no administration in time range) lidocaine (PF) 1% injection 10 mL (8 mLs Infiltration Given 01/24/19 0146) promethazine (PHENERGAN) (IV ONLY) injection 12.5 mg (12.5 mg Intravenous Given 01/24/19 00 51) HYDROmorphone (DILAUDID) injection 0.5 mg (0.5 mg Intravenous Given 01/24/19 0126) ondansetron (ZOFRAN) injection 8 mg (8 mg Intravenous Given 01/24/19 0247) Review of Systems: A 10 point review of systems was negative except as mentioned in the HPI. PMHx: Past Medical History: Diagnosis Date Asthma Bacteremia due to Gram-positive bacteria 12/12/2018 Clotted dialysis access ([facility]) 2014 Congestive heart failure (HCC) ESRD (end stage renal disease) (HCC) HSP (Henoch-Schonlein purpura) nephritis ([facility]) 1987 Hypertension Pericardial effusion without cardiac tamponade 11/07/2018 PSHx: Past Surgical History: Procedure Laterality Date ABDOMEN SURGERY AV FISTULA REPAIR 02/24/2014 LEFT Radical Cephalic Fistula Creation; Laterality: Left; Surgeon: Blake Chavarria MD ; Location: [facility] MAIN OR AV FISTULA REPAIR Left 03/07/2014 Procedure: AV FISTULA - GRAFT REPAIR/REVISION; Surgeon: Rik Simon MD; Location: [facility] IN OR; Service: Vascular; Laterality: Left; biopsy of kidney age 10 DIALYSIS FISTULA CREATION 04/08/2014 Procedure: DIALYSIS CATHETER - INSERTION; Surgeon: Rik Simon MD; Location: [facility] MAIN OR ; Service: Vascular; Laterality: N/A; tunneled catheter.br hemodialysis catheter KIDNEY BIOPSY Left 2003 OTHER SURGICAL HISTORY LAPAROSCOPIC PERITONEAL DIALYSIS CATHETER INSERTION - x2 OTHER SURGICAL HISTORY Right 07/2013 LAPAROSCOPIC PERITONEAL DIALYSIS CATHETER INSERTION - current dialysis access MWF dialysis OTHER SURGICAL HISTORY Left 06/24/2014 SUPERFICIALIZATION OF AV FISTULA - Procedure: AV FISTULA - SUPERFICIALIZATION; Surgeon: Emanuel Simon MD; Location: [facility] MAIN OR; Service: Vascular; Laterality: Left; OTHER SURGICAL HISTORY Left 04/08/2014 AV FISTULA PLACEMENT - Procedure: AV FISTULA; Surgeon: Rik Simon MD; Location: [facility] OR; Service: Vascular; Laterality: Left; cephalic OTHER SURGICAL HISTORY Left 03/07/2014 DECLOT GRAFT - Procedure: GRAFT - DECLOT; Surgeon: Rik Simon MD; Location: [facility] MAIN OR ; Service: Vascular; Laterality: Left; peritoneal catheter Prior To admission Meds: Prior to Admission medications Medication Sig albuterol-ipratropium 2.5-0.5 mg/3 mL SOLN Take 3 mLs by nebulization. carvedilol (COREG) 6.25 mg tablet Take 1 tablet by mouth 2 times daily. citalopram (CELEXA) 20 mg tablet Take 1 tablet by mouth Daily. clonazePAM (KLONOPIN) 0.5 mg tablet Take 0.5 tablets by mouth Daily as needed for Anxiety ( on hemodialysis days). clopidogrel (PLAVIX) 75 mg tablet Take 1 tablet by mouth Daily. doxercalciferol (HECTOROL) 2 mcg/mL injection Inject 0.5 mLs into the vein Three times a we ek. Per dialysis clinic protocol Patient taking differently: Inject 1.5 mcg into the vein Three times a week. Per dialysis c linic protocol epoetin jenna (EPOGEN) 20,000 units/mL injection Inject 0.4 mLs (8,000 Units total) into the skin every 7 days. etelcalcetide (PARSABIV) 2.5 mg/0.5 mL injection Inject 2.5 mg into the vein Three times a week. iron sucrose (VENOFER) 20 mg/mL injection Inject 2.5 mLs into the vein Once a week. losartan (COZAAR) 25 mg tablet Take 1 tablet by mouth Daily. ondansetron (ZOFRAN) 4 mg tablet Take 4 mg by mouth 3 (three) times daily as needed for Gm sea. pantoprazole (PROTONIX) 40 mg tablet Take 40 mg by mouth every morning before breakfast. promethazine (PHENERGAN) 25 mg tablet Take 1 tablet by mouth every 6 (six) hours as needed for Nausea or Vomiting (non-resposive to zofran). sevelamer carbonate (RENVELA) 800 mg tablet Take 2 tablets by mouth 3 (three) times daily w ith meals and 2 tablet with snacks twice daily valsartan (DIOVAN) 40 mg tablet Take 1 tablet by mouth Daily. Allergies: Allergies Allergen Reactions Adhesive & Tape Rash Certain tapes Fentanyl Itching Iodinated Diagnostic Agents Itching Pt c/o face itching during fistulagram Methylphenidate Other (See Comments) Patient says skin was crawling Morphine Itching,Rash Reglan (Metoclopramide) Itching Lisinopril Not Noted cough Intolerance No active intolerances/contraindications Family Hx: Family History Problem Relation Age of Onset High blood pressure Father Heart disease Mother Seizures Mother Hypertension Father Alcohol abuse Father Social Hx: Social History Socioeconomic History Marital status: Single [...] use: Yes Sexual activity: Not on file Lifestyle Physical activity: Days per week: Not on file Minutes per session: Not on file Stress: Not on file Relationships Social connections: Talks on phone: Not on file Gets together: Not on file Attends quaker service: Not on file Active member of [...] file Social History Narrative She lives in [facility]. She does not work. She has 1 full sibling in good health. She has a total of 14 siblings (3 with same mother, rest with same father). 1 half sibling on father's side had a brain tumor. reports that she quit smoking about 12 months ago. She started smoking about 2 years ago. She smoked 0.50 packs per day. She has never used smokeless tobacco. She reports current [place] use. Drug: Marijuana. She reports that she does not drink alcohol. reports that she quit smoking about 12 months ago. She started smoking about 2 years ago. She smoked 0.50 packs per day. She has never used smokeless tobacco. She reports current [place] use. Drug: Marijuana. She reports that she does not drink alcohol. Physical Exam: Vitals: 01/24/19 0240 BP: (!) 190/123 Pulse: 117 Resp: Temp: No intake/output data recorded. No intake/output data recorded. General Appearance: Alert, [...] curvature, ROM normal, no CVA tenderness Lungs: Mild crackles bilaterally at bases Chest Wall: No tenderness or deformity Heart: Regular rate and rhythm, S1 and S2 normal, systolic murmur, no rub or gallop Abdomen: Soft, non-tender, bowel sounds active all four quadrants, no masses, no organomegaly Psychiatric: Alert and oriented x 3. Intact Judgement and insight Rectal: Deferred Extremities: Extremities normal, atraumatic, 2+ pitting edema bilaterally Skin: Skin color, texture, turgor normal, no rashes or lesions Lymph nodes: Cervical nodes normal Neurologic: CNII-XII intact, normal strength, sensation and reflexes throughout Data: Recent Labs Lab 01/23/19232601/23/192325 WBC -- 6.15 HGB -- 11.0* HCT -- 33.2* PLT -- 110* NA -- 144 K -- 5.2* CL -- 104 CO2 -- 26 BUN -- 58* EGFR -- 5* CALCIUM -- 9.9 ANIONGAP -- 19 BNP 4,312.07* -- PHOS -- 7.9* AST -- 30 ALT -- 37 No results for input(s): TROPONINT, CKMB in the last 168 hours. Invalid input(s): CKTOTAL, TROPONINI, CKMBINDEX, PCOTNI No results for input(s): CLARITYU, LEUKOCYTESUR, UROBILINOGEN, PHUR, BLOODU, KETONES, BILIR UBINUR, GLUCOSEU, RBCU, BACTERIA, COMU in the last 168 hours. Invalid input(s): UCOL, SPECGRAV, NITRITE, UPRO Data: CBC: Lab Results Component Value Date WBC 6.15 01/23/2019 RBC 3.04 (L) 01/23/2019 RBC 3.24 (L) 10/18/2018 HGB 11.0 (L) 01/23/2019 HCT 33.2 (L) 01/23/2019 MCV 109.1 (H) 01/23/2019 MCH 36.1 (H) 01/23/2019 MCHC 33.0 01/23/2019 PLT 110 (L) 01/23/2019 MPV 11.1 01/23/2019 DIFFTYPE AUTOMATED 01/23/2019 CMP: Lab Results Component Value Date NA 144 01/23/2019 K 5.2 (H) 01/23/2019 CL 104 01/23/2019 CO2 26 01/23/2019 ANIONGAP 19 01/23/2019 GLUF 84 10/19/2018 BUN 58 (H) 01/23/2019 BCR 4 10/19/2018 GLOB 3.7 10/18/2018 AGRATIO 1.8 01/23/2019 BILITOT 0.8 10/18/2018 AST 30 01/23/2019 ALT 37 01/23/2019 EGFR 5 (L) 01/23/2019 Albumin: No results found for: ALB Magnesium: Lab Results Component Value Date MG 2.0 01/10/2019 Phosphorus: Lab Results Component Value Date PHOS 7.9 (H) 01/23/2019 PT/INR: Lab Results Component Value Date INR 1.3 12/10/2018 Troponin: No components found for: TROPONINI Last 3 Troponin: No components found for: TROPONINI TSH: No results found for: TSH EKG: I personally reviewed the EKG. Findings: Sinus tachycardia about [address]-T wave changes. IMAGING: Xr Chest Ap Portable Result Date: 01/24/2019 Improved right lung aeration. Persistent dense right lung opacity probably representing re sidual pleural effusion and atelectasis. Mild cardiomegaly with pulmonary edema. Signed by: Eliza Lloyd Zachary Sign Date/Time: 01/24/2019 2:12 AM Xr Chest 2 Vws Result Date: 01/23/2019 *Cardiomegaly with pulmonary edema. *Probable large right pleural effusion with atelectasis and/or consolidation of the underlying lung. Signed by: Eliza Marinelli Pushpender Sign Date/T bridgette: 01/23/2019 11:26 PM Recent Results (from the past 360 hour(s)) XR Chest PA and Lateral Narrative CHEST PA AND LATERAL CLINICAL INFORMATION: Shortness of breath. COMPARISON: CT CHEST WO CONTRAST (01/07/2019); XR CHEST AP PORTABLE (01/07/2019); CHEST TWO VIEWS [id number] (01/06/2019); XR CHEST AP PORTABLE (12/13/2018); FINDINGS: Dense opacity throughout the right hemithorax consistent with a pleural effusion. There is associated compressive atelectasis of the right lower and middle lobes and portions of the right upper lobe. Left lung remains clear. No pneumothorax. Heart size normal. Pulmonary vasculature normal in caliber. No acute bony abnormality. Impression Stable right sided opacity consistent with a large layering pleural effusion and compressive atelectasis. Signed by: Eliza Vasquez Corey Sign Date/Time: 01/09/2019 5:06 PM XR Chest 2 Vws Narrative CHEST TWO VIEWS CLINICAL INFORMATION: Shortness of breath. COMPARISON: XR CHEST PA AND LATERAL (01/09/2019); CT CHEST WO CONTRAST (01/07/2019); XR CHEST AP PORTABLE (01/07/2019); CHEST TWO VIEWS [id number] (01/06/2019); XR CHEST AP PORTABLE (12/13/2018); FINDINGS: [...] of the underlying lung. Signed by: Eliza Marinelli Pushpender Sign Date/Time: 01/23/2019 11:26 PM XR Chest AP Portable Narrative CHEST PORTABLE ONE VIEW CLINICAL INFORMATION: Post thoracentesis. COMPARISON: XR CHEST 2 VIEWS (01/23/2019); XR CHEST PA AND LATERAL (01/09/2019); CT CHEST WO CONTRAST (01/07/2019); XR CHEST AP PORTABLE (01/07/2019); CHEST TWO VIEWS [id number] (01/06/2019); FINDINGS: Mild cardiomegaly. No pneumothorax. Interstitial pulmonary edema with a improved right lung aeration. Persistent dense opacity at the right lung base probably representing a combination of residual pleural effusion and atelectasis. No acute bone abnormalities. Impression Improved right lung aeration. Persistent dense right lung opacity probably representing residual pleural effusion and atelectasis. Mild cardiomegaly with pulmonary edema. Signed by: Eliza Lloyd Zachary Sign Date/Time: 01/24/2019 2:12 AM Echo: 12/2018 Conclusion Moderately reduced left ventricular systolic function. The left ventricular ejecti on fraction is 40%. There are no obvious vegetations. Can not rule out endocarditis on this study, consider NOA if clinically indicated. Severe tricuspid regurgitation. There is severe pulmonary hypertension. Estimated right ventricular systolic press ure (RVSP) is 71 mmHg. 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 Acute on chronic hypoxic respiratory failure, acute on chronic CHF exacerbation due to noncompliance with dialysis, also possibly not optimized with medication. Will likely need more than 2 midnights. Admit to inpatient. Case has been discussed with nephrology Dr. Rosas and plan for dialysis today morning as h dialysis center does not provide dialysis on . Discussed with patient about compliance, 1.5 L fluid restriction, heart rate and blood pres sure goals. Will increase Coreg to 12.5 twice daily and losartan 50 daily after dialysis. A lso give 1 dose of Lasix 80 mg IV x1 to see if patient has any response. If she does can be considered for long-term torsemide at home. Also order for hydralazine IV as needed. Has recurrent pleural effusions status post thoracocentesis. Due to CHF hold off on any wo rk-up at this point. Low positive troponins due to same will order for 1 more repeat if unch anged no other follow-up. She also has history of mitral and tricuspid regurgitation, severe pulmonary hypertension w ith echo as above. 2. ESRD on HD continue with home regimen and follow nephrology recommendations. 3. GERD continue PPI. 4. Anxiety continue with clonazepam as needed during the HD at home dose Patient's old records and labs that were available, were reviewed in detail and summarized as above. Dictation and trim setter helper or software, DWNLD, used which may contain error for similar s ounding words even after review. Personal communication requested for any clarification. Code Status: Prior Primary Care Physician: Jonathan Alonso MD 01/24/19 Omar Tirado MD documented in this encoun ter Procedure Notes René Anguiano MD - 01/25/2019 6:45 PM PSTAssociated Order(s): HEMODIALYSISPrincipal Probl em: Acute hypoxemic respiratory failure Active Problems: ESRD on hemodialysis Uncontrolled hypertension Recurrent right pleural effusion Acute respiratory distress History of Henoch-Schonlein purpura Chronic combined systolic and diastolic heart failure Non-rheumatic mitral regurgitation Acute on chronic combined systolic and diastolic CHF (congestive heart failure) This is a late entry of an encounter during dialysis on the date/time as above. The patient is seen & examined during dialysis. she says that she feels 'ok' today. she de nies any dizziness, cp, sob, abd pain, n/v. The following portions of the patient's history were reviewed and updated as appropriate: l aboratory data, allergies, current medications, and problem list. P.E. BP 165/94, P 87 General appearance: Pleasant, not in acute distress. Lungs: Clear to auscultation bilaterally. There are no wheezes. Heart: Regular rate and rhythm without any rub, gallop. Grade 3/6 systolicmurmurbest h eard at the apex. Abdominal exam: Soft and nontender with normal bowel sounds. Extremities: Warm to touch with no leg edema. There is no cyanosis. Neurological: Awake, alert, and oriented to time, place, and person. Normal gross motor po wer. There is no asterixis. Access: left arm AV fistula with good flow Labs from earlier this AM reviewed Assessment: Ms. Weldon is a 23 y.o. [...] (HCC) [N18.6, Z99.2] Chronic pleural effusion [J90] Complications identified during her dialysis treatment: none so far. Recommendations: UF as tolerated Prot suppl stressed Diet restrictions stressed again Fluid restrictions also stressed IV Epo with HD as ordered Next dialysis treatment per the submitted orders. René Anguiano MD documented in this enco unter ED Notes Lori Oneil RN - 01/24/2019 2:35 AM PSTPt vomiting at this time. Jeffry ALMEIDA notified.E lectronically signed by Lori Oneil RN at 01/24/2019 2:35 AM PSTVivek Teran MD - 01/23/2019 10:51 PM PSTAssociated Order(s): Thoracentesis [facility] Department of Emergency Medicine No flowsheet data found. 10:51 PM History of Present Illness Patient Identification Dara Weldon is a 23 y.o. female. Dara Weldon Patient information was obtained from patient History/Exam limitations: none. Patient presented to the Emergency Department by: Car Chief Complaint Chief Complaint Patient presents with Shortness of Breath "I have fluid in my lung and it needs to be tapped", pt has not been to dialysis for her last two appointments The patient presents to the emergency department with chief complaints of shortness of chema th. Onset of symptoms was five days ago, with a worsening course since that time. The sympto ms are described to be of moderate severity. Patient also complains of nausea, and chest liz n. The patient describes the quality and location of the symptoms as the following: "I feel in the shower because of how short of breath I was." Patients last full treatment was last M , and did not go Monday, Monday, and today due to her transportation cancelling on her . She did have dialysis this Monday. She has had this happen in the past. No care prior to a rrival reported at this time. Dr. Anguiano, Showcase Trimmer. PCP: Jonathan Alonso MD Past Medical History: Diagnosis Date Asthma Bacteremia due to Gram-positive bacteria 12/12/2018 Clotted dialysis access ([facility]) 2014 Congestive heart failure ([facility]) ESRD (end stage renal disease) ([facility]) HSP (Henoch-Schonlein purpura) nephritis ([facility]) 1987 Hypertension Pericardial effusion without cardiac tamponade 11/07/2018 Past Surgical History: Procedure Laterality Date ABDOMEN SURGERY AV FISTULA REPAIR 02/24/2014 LEFT Radical Cephalic Fistula Creation; Laterality: Left; Surgeon: Blake Chavarria MD ; Location: [facility] MAIN OR AV FISTULA REPAIR Left 03/07/2014 Procedure: AV FISTULA - GRAFT REPAIR/REVISION; Surgeon: Rik Simon MD; Location: [facility]; Service: Vascular; Laterality: Left; biopsy [...] - SUPERFICIALIZATION; Surgeon: Emanuel Simon MD; Location: [facility] MAIN OR; Service: Vascular; Laterality: Left; OTHER SURGICAL HISTORY Left 04/08/2014 AV FISTULA PLACEMENT - Procedure: AV FISTULA; Surgeon: Rik Simon MD; Location: [facility]; Service: Vascular; Laterality: Left; cephalic OTHER SURGICAL HISTORY Left 03/07/2014 DECLOT GRAFT - Procedure: GRAFT - DECLOT; Surgeon: Rik Simon MD; [facility] [facility] ; Service: Vascular; [...] by mouth Daily. 11/09/18 Darell Kowalski MD ondansetron (ZOFRAN) 4 mg tablet Take [...] in-house. 01/24/19 Reglan [Metoclopramide] Itching Lisinopril cough Social History [...] use: Yes Sexual activity: Not on file Lifestyle Physical activity: Days per week: Not on file Minutes per session: Not on file Stress: Not on file Relationships Social connections: Talks on phone: Not on file Gets together: Not on file Attends quaker service: Not on file Active member of [...] file Social History Narrative She [place] in [place] [...] visual disturbance. Cardiovascular/Respiratory: Positive for: shortness of breath, and chest pain Negative for: syncope, or cough. Gastrointestinal: Positive for: nausea Negative for: abdominal pain, vomiting, diarrhea, or black or bloody stools. Genitourinary: Negative for: dysuria or urinary problems. Musculoskeletal: Negative for: back pain Skin: Negative for: rash or lesions. Neuro: Negative for: headache, focal muscle weakness, seizure or acute neur ological problems. All systems reviewed and otherwise negative Physical Exam Temp: 37.1 C (98.7 F) Pulse: 125 Resp: 28 BP: (!) 200/131 SpO2: (!) 89 % Vitals Interpretation: tachycardic, elevated blood pressure, hypoxic, otherwise WNL Pulse Oximetry interpretation: hypoxemic General: Alert, in no apparent distress Eyes: Normal inspection, pupils equal and round, non-icteric CVS: tachycardic No murmurs, rubs or gallops Respiratory: Tachypneic, diminished, mild distress Abdomen: Soft, non-tender, non-distended No guarding or rebound Skin: Warm and dry No rash Musculoskeletal: Moves all extremities Neuro: No gross motosensory deficit Medical Decision Making and Emergency Department Course Records Reviewed Old medical records. Nursing notes. ED Department Course 10:51 PM Patient presents with history of end-stage renal disease, on dialysis, presented with compl aint of shortness of breath, she has missed her dialysis for the past week. Has been evalua wilmer in the ER multiple times for similar or related complaint. Has history of noncomplianc e with dialysis. Patient on presentation was short of breath O2 sat in the high 80[address] ated that she need to have a thoracentesis as she has had it done in the past for similar symptoms. Will obtain lab, chest x-ray, consent for thoracentesis, consult with patient nep hrologist. 12:14 AM Labs reviewed: BNP 4,312, H&H 11 and 33.2, potassium 5.2, BUN 58, creatinine 10.13, GFR 5, troponin 0.169 phosphorus 7.9. BNP 4300 Chest XR resulted: cardiomegaly with pulmonary edema. Probably large right pleural effusion with atelectasis and/or consolidation of the underlying lung. 1:02 AM Thoracentesis start time. 1.16 AM Thoracentesis end time. Removed 1.5 L of fluid. Xray showed improvement in aeration, no pneumothorax 1:35 AM I spoke with Dr. Rosas, Nephrology, regarding the patients case and would like the patient to be admitted and dialyzed in the morning. 2:16 AM Discussed the pt's case including pertinent hx, workup, and treatment with Dr. Tirado, [facility] who accepts the pt for admission. Will continue to monitor the pt in this department until care is transferred to his services. Critical Care Note Performed by: JEFFRY CRUZ Authorized by: JEFFRY CRUZ Critical care provider statement: Critical care time (minutes): 40 Critical care time was exclusive of: Separately billable procedures and treating other pat ients Critical care was necessary to treat or prevent imminent or life-threatening deterioration of the following conditions: Respiratory failure Critical care was time spent personally by me on the following activities: Obtaining histo ry from patient or surrogate, examination of patient, evaluation of patient's response to tr eatment, discussions with consultants, development of treatment plan with patient or surroga te, review of old charts, re-evaluation of patient's condition, pulse oximetry, ordering and review of radiographic studies, ordering and review of laboratory studies and ordering and performing treatments and interventions thoracenthecis I assumed direction of critical care for this patient from another provider in my specialty : no Medications carvedilol (COREG) tablet 12.5 mg (12.5 mg Oral Given 01/24/19 1712) hydrALAZINE (APRESOLINE) injection 10 mg (10 mg Intravenous Given 01/24/19 1410) albuterol-ipratropium 2.5-0.5 mg/3 mL nebulizer solution 3 mL (has no administration in franco e range) citalopram (celeXA) tablet 20 mg (20 mg Oral Given 01/24/19 1409) clonazePAM (klonoPIN) tablet 0.25 mg (has no administration in time range) clopidogrel (PLAVIX) tablet 75 mg (75 mg Oral Given 01/24/19 1409) losartan (COZAAR) tablet 50 mg (50 mg Oral Given 01/24/19 1409) pantoprazole (PROTONIX) DR tablet 40 mg (40 mg Oral Given 01/24/19 0810) heparin 5,000 units/mL injection 5,000 Units (5,000 Units Subcutaneous Not Given 01/24/19 1 412) acetaminophen (TYLENOL) tablet 650 mg (650 mg Oral Given by Other 01/24/19 1144) polyethylene glycol (MIRALAX) powder 17 g (has no administration in time range) ondansetron (ZOFRAN) injection 4 mg (4 mg Intravenous Given 01/24/19 1711) sevelamer carbonate (RENVELA) tablet 1,600 mg (1,600 mg Oral Not Given 01/24/19 1805) sevelamer carbonate (RENVELA) tablet 1,600 mg (has no administration in time range) sodium chloride 0.9% (NS) bolus 100 mL (has no administration in time range) sodium chloride 0.9% flush 10 mL ( Intracatheter Canceled Entry 01/24/19 1042) albumin 25% IVPB 12.5 g (has no administration in time range) oxyCODONE-acetaminophen (PERCOCET) 5-325 mg per tablet 1 tablet (has no administration in t bridgette range) lidocaine (LIDODERM) 5% patch 1 patch (1 patch Transdermal Not Given 01/24/19 1533) diphenhydrAMINE (BENADRYL) capsule 25 mg (has no administration in time range) lidocaine (PF) 1% injection 10 mL (8 mLs Infiltration Given 01/24/19 0146) promethazine (PHENERGAN) (IV ONLY) injection 12.5 mg (12.5 mg Intravenous Given 01/24/19 00 51) HYDROmorphone (DILAUDID) injection 0.5 mg (0.5 mg Intravenous Given 01/24/19 0126) ondansetron (ZOFRAN) injection 8 mg (8 mg Intravenous Given 01/24/19 0247) HYDROmorphone (DILAUDID) injection 1 mg (1 mg Intravenous Given 01/24/19 0420) furosemide (LASIX) injection 80 mg (80 mg Intravenous Given 01/24/19 0424) HYDROmorphone (DILAUDID) injection 0.5 mg (0.5 mg Intravenous Given 01/24/19 1313) Vitals: 01/24/19 1254 01/24/19 1300 01/24/19 1310 01/24/19 1503 BP: (!) 187/105 (!) 182/100 (!) 179/103 (!) 161/95 Pulse: 94 96 96 103 Resp: 18 18 Temp: 36.5 C (97.7 F) 36.4 C (97.6 F) TempSrc: Oral SpO2: 95% 93% 98% 95% Weight: Height: Laboratory Evaluation Results Procedure Component Value Ref Range Date/Time B Type Natriuretic Peptide [[id number]] (Abnormal) Collected: 01/23/192326 Order Status: Completed Specimen: Blood Updated: 01/24/19 0005 BNP 4,312.07 0 - 100 pg/mL CBC with Differential [[id number]] (Abnormal) Collected: 01/23/192325 Order Status: Completed Specimen: Blood Updated: 01/24/19 0001 WBC 6.15 3.80 - 11.00 K/uL RBC 3.04 3.70 - 5.10 M/uL Hemoglobin 11.0 11.3 - 15.5 g/dL Hematocrit 33.2 34.0 - 46.0 % MCV 109.1 80.0 - 100.0 fl MCH 36.1 27.0 - 34.0 pg MCHC 33.0 32.0 - 35.5 g/dL RDW-SD 61.7 37 - 53 fl Platelet Count 110 150 - 400 K/uL MPV 11.1 fl Diff Type AUTOMATED % Neutrophils 74.95 % % Lymphocytes 12.50 % Monocyte % 5.34 % Eosinophils % 6.39 % Basophils % 0.82 % Neutrophils, Absolute 4.61 1.90 - 7.40 K/uL Absolute Lymphocytes 0.77 1.00 - 3.90 K/uL Absolute Monocytes 0.33 0.00 - 0.80 K/uL Eosinophils, Absolute 0.39 0.00 - 0.50 K/uL Basophils, Absolute 0.05 0.00 - 0.10 K/uL RBC Morphology 2+ Platelet Estimate DECREASED Comprehensive Metabolic Panel [[id number]] (Abnormal) Collected: 01/23/192325 Order Status: Completed Specimen: Blood Updated: 01/23/192351 Na 144 135 - 145 mmol/L K 5.2 3.5 - 4.9 mmol/L Cl 104 99 - 109 mmol/L CO2 26 23 - 32 mmol/L Anion Gap 19 5 - 20 mmol/L Glucose 88 65 - 99 mg/dL BUN 58 8 - 25 mg/dL Creatinine 10.13 0.50 - 1.00 mg/dL BUN/Creatinine Ratio 6 Calcium 9.9 8.5 - 10.5 mg/dL Protein, Total 6.6 6.3 - 8.2 g/dL Albumin 4.2 3.6 - 5.0 g/dL Globulin 2.4 1.3 - 4.9 g/dL A/G Ratio 1.8 1.0 - 2.4 BILIRUBIN, TOTAL 1.0 0.1 - 1.5 mg/dL ALK PHOS 135 35 - 115 U/L AST 30 10 - 45 U/L ALT 37 10 - 65 U/L Estimated GFR 5 >60 mL/min/1.73m2 Troponin I [[id number]] (Abnormal) Collected: 01/23/192325 Order Status: Completed Specimen: Blood Updated: 01/23/192351 Troponin I 0.169 0.00 - 0.04 ng/mL Phosphorus [[id number]] (Abnormal) Collected: 01/23/192325 Order Status: Completed Specimen: Blood Updated: 01/23/192351 Phosphorus 7.9 2.3 - 4.8 mg/dL Available Labs reviewed and interpreted by me. Radiology and EKG Evaluation Imaging Results XR Chest AP Portable (Final result) Result time 01/24/19 02:12:58 Final result by Casimiro Lloyd MD (01/24/19 02:12:58) Impression: Improved right lung aeration. Persistent dense right lung opacity probably representing residual pleural effusion and atelectasis. Mild cardiomegaly with pulmonary edema. Signed by: Eliza Lloyd, Casimiro Sign Date/Time: 01/24/2019 2:12 AM Narrative: CHEST PORTABLE ONE VIEW CLINICAL INFORMATION: Post thoracentesis. COMPARISON: XR CHEST 2 VIEWS (01/23/2019); XR CHEST PA AND LATERAL (01/09/2019); CT CHEST WO CONTRAST (01/07/2019); XR CHEST AP PORTABLE (01/07/2019); CHEST TWO VIEWS [id number] (01/06/2019); FINDINGS: Mild cardiomegaly. No pneumothorax. Interstitial pulmonary edema with a improved right lung aeration. Persistent dense opacity at the right lung base probably representing a combination of residual pleural effusion and atelectasis. No acute bone abnormalities. XR Chest 2 Vws (Final result) Result time 01/23/19 23:26:54 Final result by Yani Marinelli MD (01/23/19 23:26:54) Impression: *Cardiomegaly with pulmonary edema. *Probable large right pleural effusion with atelectasis and/or consolidation of the underlying lung. Signed by: Eliza Marinelli, Yani Sign Date/Time: 01/23/2019 11:26 PM Narrative: CHEST TWO VIEWS CLINICAL INFORMATION: Shortness of breath. COMPARISON: XR CHEST PA AND LATERAL (01/09/2019); CT CHEST WO CONTRAST (01/07/2019); XR CHEST AP PORTABLE (01/07/2019); CHEST TWO VIEWS [id number] (01/06/2019); XR CHEST AP PORTABLE (12/13/2018); FINDINGS: Cardiomegaly. Pulmonary venous congestion. Diffuse interstitial prominence in both lungs. Right parahilar opacity. Dense right basilar opacity with obscuration of right dome of diaphragm and right costophrenic sulcus. No left pleural effusion. No pneumothorax. No acute osseous abnormality. EKG @ 1:22 AM Sinus tachycardia at a rate of [address] and T wave changes. Available radiology studies reviewed and interpreted contemporaneously by me. Diagnosis 1. SOB (shortness of breath) 2. ESRD needing dialysis (HCC) 3. Chronic pleural effusion 4. Noncompliance with renal dialysis (HCC) Disposition: ED Disposition ED Disposition Condition Comment Admit Attending: OMAR TIRADO [[id number]] Discharge Medications: ED Prescriptions This print group is not available in inpatient encounters. Please contact a system adminis trator. Procedures: Thoracentesis Date/Time: 01/24/2019 6:14 PM Performed by: Vivek Teran MD Authorized by: Sotero Reinoso MD Consent: Verbal consent obtained. Written consent obtained. Risks and benefits: risks, benefits and alternatives were discussed Consent given by: patient Patient understanding: patient states understanding of the procedure being performed Patient consent: the patient's understanding of the procedure matches consent given Procedure consent: procedure consent matches procedure scheduled Relevant documents: relevant documents present and verified Test results: test results available and properly labeled Site marked: the operative site was marked Imaging studies: imaging studies available Patient identity confirmed: verbally with patient and arm band Time out: Immediately prior to procedure a "time out" was called to verify the correct kota ent, procedure, equipment, technical support 1 software engineer and site/side marked as required. Procedure purpose: therapeutic Indications: pleural effusion Preparation: Patient was prepped and draped in the usual sterile fashion. Local anesthesia used: yes Anesthesia: local infiltration Anesthesia: Local anesthesia used: yes Local Anesthetic: lidocaine 1% without epinephrine Anesthetic total: 10 mL Sedation: Patient sedated: no Preparation: skin prepped with Betadine Patient position: sitting Ultrasound guidance: yes Location: right posterior Intercostal space: 6th Puncture method: twgb-fls-[id number] catheter Number of attempts: 1 Drainage amount: 1500 ml Drainage characteristics: clear Patient tolerance: Patient tolerated the procedure well with no immediate complications Chest x-ray performed: yes Chest x-ray interpreted by radiologist. Chest x-ray findings: pleural effusion (improved) Attending Provider Note: IVivek MD personally performed the services described in this documentation, as scribed by Samuel Butler in my presence, and it is both accurate an d complete. Chart Reviewed and Completed. Scribe: Héctor Daniel, scribing for and in the presence of Vivek Teran MD. Completed by: Héctor Adair 01/24/2019 6:02 AM Vivek Teran MD 01/24/19 1826 documented in this e ncounter Miscellaneous Notes Plan of Care - Anahy Clay RN - 01/26/2019 5:00 AM PSTPt received HD with a total of 2 .5L off,tolerated well. Ambulated halls indeptendently without any complaitns. Medicated x1 with zofran. Pt states she feels much better; denies CP and SOB. 24 hour chart check reviewed. Audit completed. Anahy Clay RN] Problem: Adult Inpatient Plan of Care Goal: Absence of Hospital-Acquired Illness or Injury Outcome: Ongoing, progressing Note: Frequent rounding, call light at bedside, assist with care ADLs as needed, continuing educa tion Problem: Fall Injury Risk Goal: Absence of Fall and Fall-Related Injury Note: Ensure pt safety in place with frequent rounding, call light at bedside, bed alarm in place with clear walk pathways. lan Anahy Lopez RN - 01/25/2019 8:01 PM PSTPt curruently receiving HD, evening dose of cardiviol was held d/t HD, HD nurse called this nurse requesting BP meds d/t SBP continuing to be elev ated above 170 (see vitals), scheduled BP meds administered. pt has hydralazine and labetal ol PRN orders for SBP>160, with pt currently receiving HD nursing discretion to hold off on PRN meds and reassess BP was implemented Problem: Adult Inpatient Plan of Care Goal: Absence of Hospital-Acquired Illness or Injury Outcome: Ongoing, progressing Note: Frequent rounding, call light at bedside, assist with care ADLs as needed, continuing educa tion lan of Jannet Kahn RN - 01/25/2019 6:26 PM PST Problem: Fall Injury Risk Goal: Absence of Fall and Fall-Related Injury Outcome: Ongoing, progressing Problem: Fluid Volume Excess (Chronic Kidney Disease) Goal: Fluid Balance Outcome: Ongoing, progressing END OF SHIFT NOTE: Pt has had no events this shift. No changes from initial assessment. Pt on HD. Pt is to be Dc'ed tomorrow morning. VSS will continue to monitor. End of shift review complete. Electro nically signed by Jannet Blake RN at 01/25/2019 6:27 PM PSTPlan of Anahy Sparrow RN - 01/25/2019 5:00 AM PSTPt medicated x1 with zofran, VSS, provided therapeutic commu nication. 24 hour chart check reviewed. Audit completed. Anahy Clay RN Problem: Fall Injury Risk Goal: Absence of Fall and Fall-Related Injury Outcome: Ongoing, progressing Note: Ensure pt free of falls with frequent rounding, call light at bedside and clear walk pathwa ys Problem: Adult Inpatient Plan of Care Goal: Absence of Hospital-Acquired Illness or Injury Outcome: Ongoing, progressing Note: Frequent rounding, call light at bedside, assist with care ADLs as needed, continuing educa tion lan of Care - Kika De Luna RN - 01/24/2019 3:38 PM PST Problem: Fall Injury Risk Goal: Absence of Fall and Fall-Related Injury Outcome: Ongoing, progressing Problem: Adult Inpatient Plan of Care Goal: Plan of Care Review Outcome: Ongoing, progressing Flowsheets (Taken 01/24/2019 1535) Plan of Care Reviewed With: patient Goal: Optimal Comfort and Wellbeing Outcome: Ongoing, progressing Intervention: Monitor Pain and Promote Comfort Note: Q2h rounding to assess pain/comfort Problem: Electrolyte Imbalance (Chronic Kidney Disease) Goal: Electrolyte Balance Outcome: Ongoing, progressing reatment Plan - Sotero Sousa MD - 01/24/2019 7:47 AM PSTBriefly, 23-year-old female with a significant p ast medical history of Henoch-Schonlein Purpura, end-stage renal disease on hemodialysis (MW F Dr. Anguiano), noncompliance with medical therapy, recurrent hospitalization for acute hypo xic respiratory failure secondary to volume overload in the setting of missed hemodialysis, chronic combined congestive heart failure (EF 40% echo 12/2018), chronic right heart fail ure and other comorbidities who presents to [facility] ER on 01/24 for progressively worsening raul rtness of breath admitted for acute hypoxic respiratory distress likely secondary to volum e overload from missed hemodialysis session. Kindly see official H&P for further details regarding physical examination, assessment and plan. Of note, patient demonstrates high risk behavior for opiate dependence. Pain regimen discu ssed in detail. Nonopiate oral therapy with Tylenol to be initiated initially. If non-resp onsive with objective vital sign assessment we will consider tramadol 50 mg x 1. If nonre sponsive oral opiate therapy such as [place] to be administered. No IV Benadryl to be adminis tered. lan of Care - Veena Boyer RN - 01/24/2019 5:46 AM PST Problem: Adult Inpatient Plan of Care Goal: Plan of Care Review Outcome: Ongoing, progressing Problem: Electrolyte Imbalance (Chronic Kidney Disease) Goal: Electrolyte Balance Outcome: Ongoing, progressing Problem: Fluid Volume Excess (Chronic Kidney Disease) Goal: Fluid Balance Outcome: Ongoing, progressing Plan of care reviewed with pt, all questions answered. Pt is on telemetry monitoring, remai ns in sinus rhythm. Dialysis planned for AM. Lasix administered as ordered. Electronically s igned by Veena García RN at 01/24/2019 5:47 AM PSTdocumented in this encounter Plan of [...] | | | 01/23/ | | | 2019 | | | [...] | | | ON?11/ | | | 20/ | | | 9 | | | 22:10? | | | BLANDON | | | ON, | | | DARA | | | | | | R?MRN: | | | | | | [id number] | | | [id number] | | | riteri | | | [...] | | | St. | | | [place] | | | y | | | [...] | | | St. | | | [place] | | | y | | | [...] | | | St. | | | [place] | | | y | | | [...] | | | St | | | [place] | | | y | | | [...] St | | | | | | [place] | | | y | | | [...] | | | St. | | | [place] | | | y | | | [...] | | | St. | | | [place] | | | y H. | | [...] | | | St. | | | [place] | | | y H. | | [...] | | | St. | | | [place] | | | y H. | | [...] | | | St. | | | [place] | | | y H. | | [...] | | | St. | | | [place] | | | y H. | | [...] | | | St. | | | [place] | | | y H. | | [...] | | | MD | | | Building Trades Instructor | | | al | | | [...] | | | [id number] | | | [id number] | | | eb | | | [...] MISHEL | | | | performed at [facility], [address] | | LABORATORY | | | | [address], | | | | | | [place] [address] | | | | + + + + + + + + | Specimen | + + | | + + + + + + + | Performing | Address | City/State/Zipcode | Phone Number | | Organization | | | | + + + + + | [facility] | [address] | [place] [address] | [phone] | + + + + + CBC no Differential (01/26/2019 5:37 AM PST) + + + + + + | Component | Value | Ref Range | Performed | Pathologist | | | | | At | Signature | + + + + + + | WBC | 4.50 | 3.80 - 11.00 | KR | | | | | K/uL | [...] [facility] | | | | performed at [facility], [address] | | LABORATORY | | | | [address], | | | | | | [place] [address] | | | | + + + + + + + + | Specimen | + + | | + + + + + + + | Performing | Address | City/State/Zipcode | Phone Number | | Organization | | | | + + + + + | [facility] | [address] | [place] [address] | [phone] | + + + + + Renal [...] 12 (L)Comment: GFR <60: | >60 | [facility] | | | GFR | [...] | | | | | performed at [facility], [address] | | | | | | [facility], | | | | | | [place] [address] | | | | + + + + + + + + | Specimen | + + | Blood | + + + + + + + | Performing | Address | City/State/Zipcode | Phone Number | | Organization | | | | + + + + + | [facility] | [address] | [place] [address] | [phone] | + + + + + HEMODIALYSIS [...] Testing | 1.7 - 2.4 mg/dL | [facility] | | | | performed at [facility], [address] | | LABORATORY | | | | [address], | | | | | | [place] [address] | | | | + + + + + + + + | Specimen | + + | | + + + + + + + | Performing | Address | City/State/Zipcode | Phone Number | | Organization | | | | + + + + + | [facility] | [address] | [place] [address] | [phone] | + + + + + CBC [...] + + + | Red Blood | 2.57 (L) | 3.70 - 5.10 [...] [facility] | | | | performed at [facility], [address] | | LABORATORY | | | | [address], | | | | | | [place] [address] | | | | + + + + + + + + | Specimen | + + | | + + + + + + + | Performing | Address | City/State/Zipcode | Phone Number | | Organization | | | | + + + + + | [facility] | [address] | [place] [address] | [phone] | + + + + + Renal [...] (H) | 2.3 - 4.8 mg/dL | [facility] | | | | | | LABORATORY | | + + + + + + | Estimated | 7 (L)Comment: GFR <60: | >60 | [facility] | | | GFR | [...] [address] | | | | | | [facility], | | | | | | [place] [address] | | | | + + + + + + + + | Specimen | + + | Blood | + + + + + + + | Performing | Address | City/State/Zipcode | Phone Number | | Organization | | | | + + + + + | [facility] | [address] | [place] [address] | [phone] | + + + + + Iron [...] [address], | | | | | | [place] [address] | | | | + + + + + + + + | Specimen | + + | Blood | + + + + + + + | Performing | Address | City/State/Zipcode | Phone Number | | Organization | | | | + + + + + | [facility] | [address] | [place] [address] | [phone] | + + + + + Ferritin [...] | | | | | [place] [address] | | | | + + + + + + + + | Specimen | + + | Blood | + + + + + + + | Performing | Address | City/State/Zipcode | Phone Number | | Organization | | | | + + + + + | [facility] | [address] | [place] [address] | [phone] | + + + + + Creatine [...] [address], | | | | | | [place] [address] | | | | + + + + + + | CK-MB | 0Comment: Testing | 0 - 3 % | [facility] | | | | performed by [facility], | | LABORATORY | | | | [address], | | | | | | [place] [address] | | | | + + + + + + | CK-BB | 0Comment: Testing | 0 % | [facility] | | | | performed by [facility], | | LABORATORY | | | | [address], | | | | | | [place] [address] | | | | + + + + + + | CK, Total | 156Comment: Testing | 24 - 173 U/L | [facility] | | | | performed at [facility], | | LABORATORY | | | | [address], [address], | | | | | | [place] [address] | | | | + + + + + + | CK-MACRO | 0 | Not Observed % | [facility] | | | TYPE 1 | | | LABORATORY | | + + + + + + | CK-MACRO | 0Comment: Testing | Not Observed % | [facility] | | | TYPE II | performed by [facility], | | LABORATORY | | | | [address], | | | | | | [place] [address] | | | | + + + + + + + + | Specimen | + + | Blood | + + + + + + + | Performing | Address | City/State/Zipcode | Phone Number | | Organization | | | | + + + + + | [facility] | [address] | [place] [address] | [phone] | + + + + + Phosphorus (01/24/2019 5:53 AM PST) + + + + + + | Component | Value | Ref Range | Performed | Pathologist | | | | | At | Signature | + + + + + + | Phosphorus | 8.6 (H)Comment: Testing | 2.3 - 4.8 mg/dL | [facility] | | | | performed at [facility], [address] | | LABORATORY | | | | [address], | | | | | | [place] [address] | | | | + + + + + + + + | Specimen | + + | Blood | + + + + + + + | Performing | Address | City/State/Zipcode | Phone Number | | Organization | | | | + + + + + | [facility] | [address] | [place] [address] | [phone] | + + + + + Magnesium (01/24/2019 5:53 AM PST) + + + + + + | Component | Value | Ref Range | Performed | Pathologist | | | | | At | Signature | + + + + + + | Magnesium | 2.6 (H)Comment: Testing | 1.7 - 2.4 mg/dL | [facility] | | | | performed at [facility], [address] | | LABORATORY | | | | [address], | | | | | | [place] [address] | | | | + + + + + + + + | Specimen | + + | Blood | + + + + + + + | Performing | Address | City/State/Zipcode | Phone Number | | Organization | | | | + + + + + | [facility] | [address] | [place] [address] | [phone] | + + + + + Basic [...] 4 (L)Comment: GFR <60: | >60 | [facility] [...] | | | | | performed at [facility], [address] | | | | | | [address] [facility], | | | | | | [place] [address] | | | | + + + + + + + + | Specimen | + + | Blood | + + + + + + + | Performing | Address | City/State/Zipcode | Phone Number | | Organization | | | | + + + + + | [facility] | [address] | [place] [address] | [phone] | + + + + + CBC [...] | | | | | | at [facility], [address] | | | | | | [facility], | | | | | | [place] [address] | | | | | |Testing performed at [facility], [address] [place] [address] | | | | | | | | | | + + +---- + + + + + | Specimen | + + | Blood | + + + + + + + | Performing | Address | City/State/Zipcode | Phone Number | | Organization | | | | + + + + + | [facility] | [address] | [place] [address] | [phone] | + + + + + Troponin I (01/24/2019 5:53 AM PST) + + + + + + | Component | Value | Ref Range | Performed | Pathologist | | | | | At | Signature | + + + + + + | Troponin I | 0.228 (H)Comment: 0.04 | 0.00 - 0.04 | [facility] | | | | ng/mL [...] | | | | | | [facility];[address] [facility] | | | | | | [facility];[place] [address] | | | | + + + + + + + + | Specimen | + + | Blood | + + + + + + + | Performing | Address | City/State/Zipcode | Phone Number | | Organization | | | | + + + + + | [facility] | [address] | [place] [address] | [phone] | + + + + + XR [...] CHEST AP PORTABLE (01/07/2019); CHEST TWO VIEWS 82677 (01/06/2019); | | | FINDINGS: Mild cardiomegaly. [...] PORTABLE (01/07/2019); CHEST | | TWO VIEWS 70611 (01/06/2019); | | | | FINDINGS: | [...] [address] | | | | | | [address];[place] [address] | | | | + + + + + + + + | Specimen | + + | Blood | + + + + + + + | Performing | Address | City/State/Zipcode | Phone Number | | Organization | | | | + + + + + | [facility] | [address] | [place] [address] | [phone] | + + + + + Phosphorus (01/23/2019 11:26 PM PST) + + + + + + | Component | Value | Ref Range | Performed | Pathologist | | | | | At | Signature | + + + + + + | Phosphorus | 7.9 (H)Comment: Testing | 2.3 - 4.8 mg/dL | [facility] | | | | performed at [facility];[address] | | LABORATORY | | | | [address];[place], [place] | | | | | | [address] | | | | + + + + + + + + | Specimen | + + | Blood | + + + + + + + | Performing | Address | City/State/Zipcode | Phone Number | | Organization | | | | + + + + + | [facility] | [address] | [place] [address] | [phone] | + + + + + Troponin I (01/23/2019 11:26 PM PST) + + + + + + | Component | Value | Ref Range | Performed | Pathologist | | | | | At | Signature | + + + + + + | Troponin I | 0.169 (H)Comment: 0.04 | 0.00 - 0.04 | [facility] | | | | ng/mL [...] | | | | | | [facility];[address] | | | [address];[place] [address] | | | | + + + + + + + + | Specimen | + + | Blood | + + + + + + + | Performing | Address | City/State/Zipcode | Phone Number | | Organization | | | | + + + + + | [facility] | [address] | [place] [address] | [phone] | + + + + + Comprehensive [...] performed at [facility];[address] | | | | | | [facility];[place], [place] | | | | | | [address] | | | | + + + + + + + + | Specimen | + + | Blood | + + + + + + + | Performing | Address | City/State/Zipcode | Phone Number | | Organization | | | | + + + + + | [facility] | [address] | [place] [address] | [phone] | + + + + + CBC [...] + + + | Red Blood | 3.04 (L) | 3.70 - 5.10 [...] + | Platelet | DECREASEDComment: | | MISHEL | | | Estimate | Testing performed at | | LABORATORY | | | | [facility];[address] | | | | | | [address] [address] | | | | + + + + + + + + | Specimen | + + | Blood | + + + + + + + | Performing | Address | City/State/Zipcode | Phone Number | | Organization | | | | + + + + + | [facility] | [address] | [place] [address] | [phone] | + + + + + XR [...] (01/07/2019); CHEST TWO | | | VIEWS 69530 (01/06/2019); XR CHEST AP PORTABLE (12/13/2018); | [...] CHEST AP PORTABLE (01/07/2019); CHEST TWO VIEWS 18383 (01/06/2019); XR | | CHEST AP PORTABLE [...] | | | | | | editor producer Daniela Luciano | | | | | [...] correct | | | patient, procedure, equipment, technical support 1 software engineer and site/side marked as | | [...] space: 6th Puncture method: | | | [id number] catheter Number of attempts: 1 Drainage amount: [...] 0833, For 4 doses, | | | For BP less than 100 mm Hg. | | | DIALYSIS USE ONLY - DISCONTINUE | | | AFTER DIALYSIS THERAPY IS | | | COMPLETE, Treatment date(s): | | | 01/24/2019, Dialysis | | + +---+ | | [...] | | | | | | Starting [facility] 01/24/19 at 0304 | | | | [...] | | Arm | | Intravenous, ONCE, [facility] 01/24/19 | | AM PST | | | | | at 0125, For 1 dose | | | | | | + +-------+ +--------+---+--------+ +---+---+ | | | +---+---+ + +-------+ +--------+---+---+ | HYDROmorphone (DILAUDID) | Given | 01/25/20 | 0.5 mg | | | | injection 0.5 mg 0.5 mg, | | 19 1:13 | | | | | Intravenous, ONCE, [facility] 01/24/19 | | PM PST | | | | | at 1215, For 1 dose | | | | | | + +-------+ +--------+---+---+ +---+---+ | | | +---+---+ + +-------+ +------+---+---+ | HYDROmorphone (DILAUDID) | Given | 01/25/20 | 1 mg | | | | injection 1 mg 1 mg, | | 19 4:20 | | | | | Intravenous, ONCE, Mon01/24/19 | | AM PST | | | [...] 19 1:46 | | | | | Little 01/24/19 at 0030, For 1 dose | [...] PST | | | | | Starting [facility] 01/24/19 at 0355, | | | | [...] 19 2:47 | | | | | [facility] 01/24/19 at 0240, For 1 dose | [...] nonresponsive to | | | Tylenol, Starting [facility] 01/24/19 at | | | 1409 | [...] - PRN, Hypotension, | | | Starting [facility] 01/24/19 at 0833, | | | Treatment [...] - PRN, Hypotension, | | | Starting [facility] 01/25/19 at 1452, | | | Treatment [...]
--- OUTSIDE RECORDS SUMMARY | ~2019-12-25 | XMS | Encounter Summary ---
Demographics + + + | Address | [address] | | | [place] [address] | + + + | Home Phone [...] | | | | | [place] [address] | | + + + + + | Thania Mallory | ECON | [address] | | | | | [place] [address] | | + + + + + | Deidra Weldon | ECON | [address] | | | | | [place] | | | | | [address] | | + + + + + Care Team Providers + +------+ + | Care Audograph Operator Name | Role | Phone | [...] | Nephrology at | MD Emanuel [address] [facility] | | | | | [place] | [facility] | | | | | [facility] [[email or web address]] | [place], [place] | | | | | [address] | [address] | | | | | [place] | [phone] | | | | | [facility] [[email or web address]], | | | | | | [address] [place] [address] | | | | | | [place], [place] | | | | | | [address] | | | | | | [phone] | | | +--------+--------+ + + + [...] Denise | | | | | | [place] | | | | | | [address] | | | | | | [phone] | | | | | | | | +--------+ + + + + documented as of this encounter Visit Diagnoses Not on filedocumented in this encounter"
--- OUTSIDE RECORDS SUMMARY | ~2019-12-25 | XMS | Encounter Summary ---
Demographics + + + | Address | [address] | | | [place] [address] | + + + | Home Phone [...] Team Providers + +------+ + | Care Screening Representative Name | Role | Phone | [...] [address] | | | | | ([facility]) | [address] | [address] | | | | | Anemia in | [place], [place] | [place], | | | | | ESRD | [address] | [place] [address] | | | | | (end-stage | Phone: | Phone: | | | | | renal | [phone] | [phone] | | | | | disease) | Fax: | Fax: | | | | | ([facility]) | [phone] | [phone] | | | | | Procedures | [...] | 06/27/ | Off-Site | [facility] [place] | Jorje Camp | ESRD (end stage | | 2017 | Visit | NEPHROLOGY [address] | M, DO [address] | renal disease) ([facility]) | | | | [address] | [address] [place] | (Primary Dx) | | | | [place], [place] | [place] [address] | | | | | [address] | [phone] | | | | | [phone] | | | +--------+ + + + [...] have offered her arrangements via the Renal PICK PULLING MACHINE OPERATOR to obtain some meaningful counseling, but she [...] Will recheck her in 2 weeks. : Boissevain Fina Joy M.D., Pediatric Nephrology, [facility] documented in t his encounter Plan of Treatment Not on filedocumented as of this encounter Visit Diagnoses + + | Diagnosis | + + | ESRD (end stage renal disease) (HCC) - Primary End stage renal disease | + + documented in this encounter"
--- OUTSIDE RECORDS SUMMARY | ~2019-12-25 | XMS | Encounter Summary ---
Demographics + + + | Address | [address] | | | [place] [address] | + + + | Home Phone [...] Author | [facility] | | | and [place] | + + + | Organization | [facility] | | | [...] Providers + +------+ + | Care Service Learning Coordinator Name | Role | Phone | + +------+ + PCP | Unavailable | + +------+ + Encounter Details +--------+ + + + + | Date | Type | Department | Care Team | Description | +--------+ + + + + | 10/31/ | Hospital | [facility] | Conversion | ESRD (end stage | | 2015 | Encounter | CENTER CV INTRA OP | Transaction, | renal disease) on | | | | [address] | Provider Unknown | dialysis ([facility]) | | | | [place], [place] | [phone] | | | | | [address] | | | | | | [phone] | Colten Hutchins MD | | | | | | [address] | | | | | | [place], [place] | | | | | | [address] | | | | | | | [...] Note by Bev Carroll RN at 10/31/14 4373 Author: Bev Carroll RN Service: Interventional Radiology Author Type: Registered Nu rse Filed: 10/31/14 1737 Date of Service: 10/31/141734 Status: Signed [facility] Consultant: Bev Carroll RN (Registered Nurse) Sutures removed with slight tract oozing, will observe sites for 20 min before discharge,pt tolerated well. Discharge instructions given both written and orally, pt tolerating juice a nd crackers well with mother at bedside. Will d/c by wheelchair when criteria met. onver arturo Transaction, Provider Unknown - 10/31/2014 4:50 PM PDT Nurse Progress Note by eBv Carroll RN at 10/31/141649 Author: Bev Carroll RN Service: Interventional Radiology Author Type: Registered Nu rse Filed: 10/31/141649 Date of Service: 10/31/141649 Status: Signed [facility] Consultant: Bev Carroll RN (Registered Nurse) Attempted removal of suture/flowswitch, but immediately started bleeding at OP site, will t ry again in 30 minutes. docume nted in this encounter Consult Notes Jigar [id number], MD - 10/31/2014 11:49 AM PDTFormatting of this note might be differen t from the original. Consult* by Colten Hutchins MD PhD at 10/31/14 9849 Author: Colten Hutchins MD PhD Service: Interventional Radiology Author Type: Physician Filed: 10/31/14 1222 Date of Service: 10/31/14 1149 Status: Signed [facility] Consultant: Colten Hutchins MD PhD (Physician) Vascular & Interventional Radiology Consult Note Patient Name: Dara Weldon Date of : 1995 Requesting: Patient Consulting Provider: Colten Hutchins Reason for Referral and Chief Complaint: Clotted AVF History of Present Illness: Dara Weldon is a 19 y.o. female. I was asked to see Dara for evaluation of dialysis f istula. Pt known to me. Fistula placed 04/08/[address] 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 Superficialized in June 2014. Hx of recurrent perianastomotic multif ocal near occlusive stenoses in left upper extremity fistula treated by Dr. Whaley twice p reviously and which I intervened upon a third time with balloon and cutting balloon angiopla stricha 3 days ago with marked improvement in flow. Pt noted an improved thrill for two days fol lowing the procedure but then the thrill not present yesterday afternoon. She called my offi ce and was told to go to the nearest ER. She presented to [facility] where duplex ultrasound was performed demonstrating occlusion of the fistula. I had the im ages pushed to [facility] PACS and reviewed the images. She presents today for fistula declot and possible dialysis catheter placement. Hospital Problem List: Patient Active Problem List Diagnosis HSP (Henoch Schonlein purpura) ([facility]) ESRD on hemodialysis ([facility]) Review of Systems: Review of Systems Constitutional: Negative for fever, chills and weight loss. HENT: Negative for congestion and nosebleeds. Eyes: Negative for blurred vision and double vision. Respiratory: Negative for shortness of breath and wheezing. Cardiovascular: Negative for chest pain, palpitations, orthopnea and leg swelling. Gastrointestinal: Negative for heartburn, nausea and vomiting. Genitourinary: Negative for dysuria and hematuria. Musculoskeletal: Negative for myalgias, back pain and joint pain. Skin: Negative for itching and rash. Neurological: Negative for dizziness, tingling and headaches. Endo/Heme/Allergies: Does not bruise/bleed easily. All other systems negative. Code Status: Prior Past Medical History: Past Medical History Diagnosis Date HSP (Henoch-Schonlein purpura) nephritis Hypertension Clotted dialysis access ([facility]) 2014 ESRD (end stage renal disease) ([facility]) Anemia Past Surgical History: Past Surgical History Procedure Laterality Date Av fistula placement Renal biopsy Laparoscopic peritoneal dialysis catheter insertion x2 Abdominal surgery Av fistula repair Left 03/07/2014 Procedure: AV FISTULA - GRAFT REPAIR/REVISION; Surgeon: Rik Simon MD; Location: [facility] OR; Service: Vascular; Laterality: Left; Declot graft Left 03/07/2014 Procedure: GRAFT - DECLOT; Surgeon: Rik Simon MD; Location: [facility] MA[facility] OR; Service: Va scular; Laterality: Left; Av fistula placement Left 04/08/2014 Procedure: AV FISTULA; Surgeon: Rik Simon MD; Location: [facility] MA[facility] OR; Service: Vascul ar; Laterality: Left; cephalic Dialysis fistula creation N/A 04/08/2014 Procedure: DIALYSIS CATHETER - INSERTION; Surgeon: Rik Simon MD; Location: [facility] MAIN O R; Service: Vascular; Laterality: N/A; tunneled catheter Laparoscopic peritoneal dialysis catheter insertion Right 07/2013 current dialysis access MWF dialysis Superficialization of av fistula Left 06/24/2014 Procedure: AV FISTULA - SUPERFICIALIZATION; Surgeon: Rik Simon MD; Location: [facility] MA[facility] OR; Service: Vascular; Laterality: [...] Narrative Medications and Allergies: Current Medications: alteplase 4 mg Other Once sodium chloride 10 mL Intravenous Q8H Prescriptions [...] fo r Pain. 10/30/2014 at Unknown time @ENCMED@ Allergies: Allergies Allergen Reactions Morphine Rash Tape [Adhesive Tape] Rash Use silk tape only Labs: 3 Day Labs: Recent Labs Lab 10/28/14 0946 WBC 6.76 HGB 14.1 HCT 41.4 PLT 168 NA 138 K 3.9 CL 97* CO2 34* BUN 23 CREATININE 6.4* INR 1.0 Imaging/Procedures: Pertinent Studies and Results Imaging Data: Us Upper Extremity Arterial Unilateral 10/30/2014 This is a non-reportable procedure without a radiologist report and is used fo r image storage only Ir Dialysis (av)fistulagram 10/28/2014 IR DIALYSIS FISTULAGRAM dated 10/28/2014 12:12 PM CLINICAL DATA: Poor functioni ng left upper extremity AV fistula with prior perianastomotic stenoses. COMPARISON STUDIES: 08/21/2014 PRIMARY TECHNICAL CONSULTANT: Colten Hutchins MD, PhD, [facility] OPERATIONS: 1. Left upper ext remity fistulogram 2. Ultrasound-guided retrograde venous access 3. Limited diagnostic ult rasound left upper extremity 4. Left cephalic venoplasty with standard and cutting balloons . PROCEDURE: Informed consent was obtained from the patient. Continuous cardiac monitorin g was performed throughout the procedure. Conscious sedation was provided by the nursing [facility] during the procedure under my supervision. Sedation time:56 minutes Medications: 3 mg V ersed IV, 100 mcg Fentanyl IV, 100 mcg nitroglycerin IV, 50 mg Benadryl IV, 125 mg Solu-Medr ol IV Contrast:17 cc Isovue 250 Fluoroscopy time:3.3 minutes Radiation dose:7 mGy air kerma Patient was sterilely prepped and draped in usual fashion. Ultrasound was used for diagnos tic purposes to evaluate the fistula prior to obtaining access. A site was selected in the m id upper arm cephalic vein. The skin was locally anesthetized with 1% lidocaine and real-franco e ultrasound guided micropuncture access was obtained. The wire was advanced to the area of stenosis. A 4 Cymro sheath was placed. Patient was heparinized. The angiographic catheter a nd wire were advanced into the proximal brachial artery and angiogram was performed demonstr ating severe recurrent tandem stenoses of the perianastomotic venous outflow. 5 mm angioplas ty balloon was inflated multiple times with recalcitrant recoil of the more distal stenosis noted. A 3.5 mm cutting balloon was advanced and inflated over the lesion multiple times. Re peat 5 mm angioplasty balloon was performed. The endograft catheter was advanced back into t he brachial artery and angiogram was repeated demonstrating an acceptable result. The cathet er was removed. Temporary pursestring suture was placed and the sheath was removed with imme diate hemostasis. During the procedure patient had repeated complaints of facial itching. S he was stable throughout the procedure and have no rash. She was given Benadryl and Solu-Med rol prophylactically. FINDINGS: By ultrasound, there is recurrent tandem severe stenoses o f the perianastomotic venous outflow approximately 1 to 2 cm from the arteriovenous anastomo sis. A mild stenosis which does not appear flow limiting is noted approximately 5 cm more ce ntral to the perianastomotic stenoses. Following retrograde access and catheter placement w ithin the brachial artery, angiography confirms a severe tandem stenosis at the perianastomo tic venous outflow. The arteriovenous anastomosis is widely patent. Following multiple ball oon angioplasty, cutting balloon angioplasty and repeat angioplasty as described, marked imp rovement in the severe tandem stenoses is noted with clinical improvement of thrill. No gonzalez tral imaging was performed. 10/28/2014 Recurrent perianastomotic venous outflow flow-limiting tandem stenoses. Succes sful left brachiocephalic fistula perianastomotic venous angioplasty/cutting balloon angiopl asty as described. Ir Guidance Vascular Access Us 10/28/2014 This Point of Care (POC) ultrasound image has been reviewed and interpreted by the physician identified as the performing physician in the associated interpretation and report. Physical Examination: Filed Vitals: 10/31/14 1130 BP: 122/61 Pulse: 67 Temp: 98.1 F (36.7 C) Resp: 18 SpO2: 95% Physical Exam Constitutional: She is oriented to person, place, and time and well-developed, well-nourish ed, and in no distress. No distress. HENT: Head: Normocephalic and atraumatic. Eyes: EOM are normal. Neck: Normal range of motion. Neck supple. No JVD present. No tracheal deviation present. N o thyromegaly present. Cardiovascular: Normal rate, normal heart sounds and intact distal pulses. Pulses: Radial pulses are 2+ on the right side, and 2+ on the left side. Left upper arm fistula-flat without thrill. Prior left forearm fistula remains thrombosed. Pulmonary/Chest: Breath sounds normal. Abdominal: Soft. Bowel sounds are normal. She exhibits no distension. There is no tendernes s. There is no rebound. Musculoskeletal: Normal range of motion. She exhibits no edema. Neurological: She is alert and oriented to person, place, and time. Skin: Skin is warm and dry. Psychiatric: Affect and judgment normal. Plan for Sedation: IV Conscious Sedation [...] given as witnessed by staff. Pre-Procedure Diagnosis: Clotted AVF Procedure to be performed: Fistulogram and declot Assessment and Plan: Clotted AVF 3 days after angioplasty (cutting balloon) of perianastomotic severe multifocal stenoses, the third intervention since surgical revision. Will attempt declot and repeat in tervention. I have explained that the number/frequency of interventions do not emily well for the detention patency. Consented for dialysis catheter if I am unable to declot/angioplasty the fistula. Colten Ball, PhD Interventional Radiology and Vascular Medicine Vascular and Interventional Radiology Available 26/09 through our clinic 509 documented in t his encounter Miscellaneous Notes Op Note - Guerrero Kimball MD - 10/31/2014 3:59 PM PDTFormatting of this note might b e different from the original. Brief Op Note by Colten Hutchins MD PhD at 10/31/14 5996 Author: Colten Hutchins MD PhD Service: Interventional Radiology Author Type: Physician Filed: 10/31/14 3780 Date of Service: 10/31/14 2068 Status: Signed [facility] Consultant: Colten Hutchins MD PhD (Physician) Interventional Radiology Post Procedure Note Patient Name: Dara Weldon Date of : 1995 Procedure(s): Left upper extremity fistula declot with thrombolysis, rheolytic thrombectomy , angioplasty and cutting balloon angioplasty and cephalic vein stent placement. Pre OP Diagnosis: clotted left upper arm AV fistula Post OP Diagnosis: same Interventional Radiologist: Colten Hutchins MD Anesthesia Type: IV Conscious Sedation with Fentanyl and Versed. Findings: Thrombosed fistula- antegrade and retrograde 6 Fr sheath access, total of 5 mg tp a instilled with rheolytic thrombectomy, angioplasty with 7 mm balloon in mid and upper ceph alic vein, 5 mm angioplasty balloon followed by 5 mm cutting balloon at the perianastomotic venous outflow and placement of a 6 mm x 4 cm Epic self-expanding stent with good final erickson ographic result. Specimens: none EBL: 15 cc Complications: None PLAN: dialysis; if early recurrent thrombosis or restenosis, consider dialysis catheter sadia cement. A full report will follow in the [...] | | yesterday COMPARISON STUDIES: 10/28/2014 PRIMARY TECHNICAL CONSULTANT: | | | Colten Hutchins MD, PhD, [facility] OPERATIONS: 1. Ultrasound-guided | | | [...] | microsheath were both exchanged for 6 Cymro sheaths. A catheter was | | | [...] yesterday | | COMPARISON STUDIES: 10/28/2014 PRIMARY TECHNICAL CONSULTANT: Colten Hutchins MD, PhD, RPVI | [...] were both exchanged for 6 | | Cymro sheaths. A catheter was advanced over a [...] | | yesterday COMPARISON STUDIES: 10/28/2014 PRIMARY TECHNICAL CONSULTANT: | | | Colten Hutchins MD, PhD, [facility] OPERATIONS: 1. Ultrasound-guided | | | antegrade [...] | microsheath were both exchanged for 6 Cymro sheaths. A catheter was | | | [...] yesterday | | COMPARISON STUDIES: 10/28/2014 PRIMARY TECHNICAL CONSULTANT: Colten Hutchins MD, PhD, RPVI | [...] were both exchanged for 6 | | Cymro sheaths. A catheter was advanced over a [...] | | yesterday COMPARISON STUDIES: 10/28/2014 PRIMARY TECHNICAL CONSULTANT: | | | Colten Hutchins MD, PhD, [facility] OPERATIONS: 1. Ultrasound-guided | | | antegrade [...] | microsheath were both exchanged for 6 Cymro sheaths. A catheter was | | | [...] yesterday | | COMPARISON STUDIES: 10/28/2014 PRIMARY TECHNICAL CONSULTANT: Colten Hutchins MD, PhD, RPVI | [...] were both exchanged for 6 | | Cymro sheaths. A catheter was advanced over a [...] | | yesterday COMPARISON STUDIES: 10/28/2014 PRIMARY TECHNICAL CONSULTANT: | | | Colten Hutchins MD, PhD, [facility] OPERATIONS: 1. Ultrasound-guided | | | antegrade [...] | microsheath were both exchanged for 6 Cymro sheaths. A catheter was | | | [...] yesterday | | COMPARISON STUDIES: 10/28/2014 PRIMARY TECHNICAL CONSULTANT: Colten Hutchins MD, PhD, RPVI | [...] were both exchanged for 6 | | Cymro sheaths. A catheter was advanced over a [...]
--- OUTSIDE RECORDS SUMMARY | ~2019-12-25 | XMS | Encounter Summary ---
Demographics + + + | Address | [address] | | | [place] [address] | + + + | Home Phone [...] Team Providers + +------+ + | Care Science Writer Name | Role | Phone | [...] Description | +--------+--------+ + + + | 07/29/ | Refill | [facility] | Carolina Mahmood DO | Medication Refill | | 2019 | | CARDIOLOGY [place] | [address] | | | | | [address] | [place], [place] | | | | | [place], [place] | [address] | | | | | [address] | | | | | | [phone] | | | +--------+--------+ + + + [...]
--- OUTSIDE RECORDS SUMMARY | ~2019-12-25 | XMS | Encounter Summary ---
Demographics + + + | Address | [address] | | | [place] [address] | + + + | Home Phone [...] | Author | [facility] | | | and [place] | + + + | Organization | [facility] | | | [...] Providers + +------+ + | Care Gas Welder Name | Role | Phone | [...] [place] | uncomplicated | | | | [place], [place] | [place] [address] | (Primary Dx) | | | | [address] | [phone] | | | | | [phone] | | | +--------+ + + + [...]
--- OUTSIDE RECORDS SUMMARY | ~2019-12-25 | XMS | Encounter Summary ---
Demographics + + + | Address | [address] | | | [place] [address] | + + + | Home Phone [...] Providers + +------+ + | Care Certified Prosthetist/Orthotist Name | Role | Phone | + [...] [address] | | | | | ([facility]) | [address] | [place], | | | | | | [place], | [place] [address] | | | | | | [address] | Phone: | | | | | | Phone: | [phone] | | | | | | [phone] | Fax: | | | | | | Fax: | [phone] | | | | | | [phone] | | +--------+ + + + + [...] | (Primary Dx) | | | | [place], [place] | [place] [address] | | | | | [address] | [phone] | | | | | [phone] | | | +--------+ + + + [...]
--- OUTSIDE RECORDS SUMMARY | ~2019-12-25 | XMS | Encounter Summary ---
Demographics + + + | Address | [address] | | | [place] [address] | + + + | Home Phone [...] Author | [facility] | | | and [place] | + + + | Organization | [facility] | | [...] Team Providers + +------+ + | Care Scrum Product Owner Name | Role | Phone | + [...] | | | | [address] | [place], [place] | [place], | | | | | stage renal | [address] | [place] [address] | | | | | disease | Phone: | Phone: | | | | | ([facility]) | [phone] | [phone] | | | | | Infection | Fax: | Fax: | | | | | and | [phone] | [phone] | | | | | inflammatory | [...] DO [address] | renal disease) ([facility]) | | | | [address] | [address] [place] | (Primary Dx) | | | | [place], [place] | [place] [address] | | | | | [address] | [phone] | | | | | [phone] | | | +--------+ + + + [...] into the vein Three times a w iroquois. 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 3. Heat, Daniel Denny, OTC, and tramadol, short term for her back. 4. Will recheck her in 1 week. CC: [place] Fina Joy MD, [facility], [facility] signed by Jorje Camp DO at 10/27/2014 4:32 PM PDTdocumented in this encount er Plan of Treatment Not on filedocumented as of this encounter Visit Diagnoses + + | Diagnosis | + + | ESRD (end stage renal disease) (HCC) - Primary End stage renal disease | + + documented in this encounter
--- OUTSIDE RECORDS SUMMARY | ~2019-12-25 | XMS | Encounter Summary ---
Demographics + + + | Address | [address] | | | [place] [address] | + + + | Home Phone [...] Providers + +------+ + | Care Lead Maintenance Technician Name | Role | Phone [...] [address] [place] | | | | | [place], [place] | [place] [address] | | | | | [address] | [phone] | | | | | [phone] | | | +--------+--------+ + + + [...]
--- OUTSIDE RECORDS SUMMARY | ~2019-12-25 | XMS | Encounter Summary ---
Demographics + + + | Address | [address] | | | [place] [address] | + + + | Home Phone [...] Team Providers + +------+ + | Care Drawbench Operator Name | Role | Phone | [...] + + | 07/12/ | Refill | [facility] | Carolina Mahmood DO | Medication Refill | | 2019 | | CARDIOLOGY [place] | [address] | | | | | [address] | [place], [place] | | | | | [place], [place] | [address] | | | | | [address] | | | | | | [phone] | | | +--------+--------+ + + + [...]
--- OUTSIDE RECORDS SUMMARY | ~2019-12-25 | XMS | Encounter Summary ---
Demographics + + + | Address | [address] | | | [place] [address] | + + + | Home Phone [...] Author | [facility] | | | and [place] | + + + | Organization | [facility] | | [...] Team Providers + +------+ + | Care Machined Parts Quality Inspector Name | Role | Phone | + +------+ + PCP | Unavailable | + +------+ + Encounter Details +--------+ + + + + | Date | Type | Department | Care Team | Description | +--------+ + + + + | 01/09/ | Orders Only | [facility] [place] | Daniela Ibarra W, | ESRD (end stage | | 2015 | | NEPHROLOGY [address] | MD [address] | renal disease) ([facility]) | | | | [address] | [address] [place] | (Primary Dx); | | | | [place], [place] | [place] [address] | Depression | | | | [address] | [phone] | | | | | [phone] | | | +--------+ + + + [...]
--- OUTSIDE RECORDS SUMMARY | ~2019-12-25 | XMS | Encounter Summary ---
Demographics + + + | Address | [address] | | | [place] [address] | + + + | Home Phone [...] + | Author | [facility] | | | and [place] | + + + | Organization | [facility] | | | [...] Providers + +------+ + | Care Data Security Coordinator Name | Role | Phone | [...] + + | 12/10/ | Hospital | [facility] | Rayray Powers MD | Sepsis, due to | | 2019 - | Encounter | [facility] | [address] | unspecified | | | | CARE [address]LO[address] | [place], [place] | organism, | | 12/14/ | | [address] | [address] | unspecified whether | | 2019 | | [place], [place] | [phone] | acute organ | | | | [address] | | dysfunction present | | | | [phone] | Minnie Gastelum MD | (FORMERLY [facility]) (Primary Dx); | | | | | [address] | Pneumonia of right | | | | | [place] [address] | lower lobe due to | | | | | [phone] | infectious organism; | | | | | | Hypoxia; | | | | | Jw Neri, DO [address] | Hypervolemia, | | | | | [address] | unspecified | | | | | [place] [address] | hypervolemia type; | | | | | [phone] | ESRD on dialysis | | | [...] note might be different from pierre coleman. [facility] Service: Hospitalist Physician Discharge Summary Patient ID: Dara Weldon 1995 23 y.o. Admit date: 12/10/2018 Discharge date: 12/14/2018 Admitting Physician: Minnie Mckeon Ma, MD Discharge Physician: Jw Neri [...] failure (HCC) ESRD (end stage renal disease) (FORMERLY [facility]) HSP (Henoch-Schonlein purpura) nephritis (FORMERLY [facility]) 1987 Hypertension Pericardial effusion without cardiac tamponade 11/07/2018 Past Surgical History: Procedure Laterality Date ABDOMEN SURGERY AV FISTULA REPAIR 02/24/2014 LEFT Radical Cephalic Fistula Creation; Laterality: Left; Surgeon: Blake Chavarria MD ; Location: [facility] MAIN OR AV FISTULA REPAIR Left 03/07/2014 Procedure: AV FISTULA - GRAFT REPAIR/REVISION; Surgeon: Rik Simon MD; Location: [facility] IN OR; Service: Vascular; Laterality: Left; biopsy of kidney age 10 DIALYSIS FISTULA CREATION 04/08/2014 Procedure: DIALYSIS CATHETER - INSERTION; Surgeon: Rik Simon MD; Location: [facility] MAIN OR ; Service: Vascular; Laterality: N/A; tunneled catheter.br hemodialysis catheter KIDNEY BIOPSY Left 2003 OTHER SURGICAL HISTORY LAPAROSCOPIC PERITONEAL DIALYSIS CATHETER INSERTION - x2 OTHER SURGICAL HISTORY Right 07/2013 LAPAROSCOPIC PERITONEAL DIALYSIS CATHETER INSERTION - current dialysis access MWF dialysis OTHER SURGICAL HISTORY Left 06/24/2014 SUPERFICIALIZATION OF AV FISTULA - Procedure: AV FISTULA - SUPERFICIALIZATION; Surgeon: Emanuel Simon MD; Location: [facility] MAIN OR; Service: Vascular; Laterality: Left; OTHER SURGICAL HISTORY Left 04/08/2014 AV FISTULA PLACEMENT - Procedure: AV FISTULA; Surgeon: Rik Simon MD; Location: [facility] OR; Service: Vascular; Laterality: Left; cephalic OTHER SURGICAL HISTORY Left 03/07/2014 DECLOT GRAFT - Procedure: GRAFT - DECLOT; Surgeon: Rik Simon MD; Location: [facility] OR ; Service: Vascular; Laterality: Left; [...] hours. No results for input(s): PHART, PO2ART, SSZ7RTE, T6CRZYUJ, BEART in the last 168 hours. No results for input(s): APTT, INR, PTT in the last 168 hours. No results for input(s): TSH in the last 168 hours. Invalid input(s): T3FREE, FREET4 No results for input(s): TROPONINT in the last 168 hours. Invalid input(s): CKTOTAL, TROPONINI, CKMBINDEX Disposition: home No discharge procedures on file. Follow up: Jonathan Alonso MD [address] [facility] [address] Schedule an appointment as soon as possible for a visit hospital follow up Jorje Camp, [address] [facility] [address] [facility] [address] Schedule an appointment as soon as possible [...] be sent through Care Everywhere.Leti Whitt (Adult) (Lebanese)documented in this encounter Medications at Time of [...] Yanes MD - 12/14/2018 10:16 AM PDT [facility] Service: Infectious Diseases Progress Note Hospital [...] Procedure Component Value Units Date/Time Culture, Blood [[id number]] Collected: 12/12/181942 Order Status: Canceled Lab Status: No result Specimen: Peripheral Blood Culture, Body Fluid Sterile [[id number]] Order Status: No result Lab Status: No result Specimen: Body Fluid from Pleural Fluid, Right Culture, Blood [[id number]] Collected: 12/12/18 0502 Order Status: Completed Lab Status: Preliminary result Updated: 12/13/18 1324 Specimen: Peripheral Blood Special Requests RWRIST Special Requests Testing performed at [facility];[address] [place] [address] RESULT NO GROWTH AT THIS TIME RESULT Testing performed at [facility], [address] [place] [address] Comment: Testing performed at [facility], [address] [place] [address] Influenza A and B RNA, NAAT [[id number]] Collected: 12/11/18 1556 Order Status: Completed Lab Status: Final result Updated: 12/11/18 1619 Influenza A NEGATIVE Influenza B NEGATIVE Comment: Testing performed by [employer] Testing performed at [facility];[address] [place] [address] Flu Swab Collection [[id number]] Collected: 12/11/18 1546 Order Status: Completed Lab Status: Final result Updated: 12/11/18 1549 Specimen: Tissue from Nasopharynx Collection SPECIMEN RECEIVED IN LAB Comment: Testing performed at [facility];[address] [place] [address] Culture, Blood [[id number]] Collected: 12/11/18 0615 Order Status: Completed Lab Status: Preliminary result Updated: 12/12/18 1134 Specimen: Peripheral Blood Special Requests RAC Special Requests Testing performed at [facility];[address] [place] [address] RESULT NO GROWTH AT THIS TIME RESULT Testing performed at [facility], [address] [place] [address] Comment: Testing performed at [facility], [address] [place] [address] Culture, Blood [[id number]] (Abnormal) Collected: 12/10/18 2343 Order Status: Completed Lab Status: Final result Updated: 12/13/18 1009 Specimen: Blood from Line Gram Stain Result -- GRAM POSITIVE COCCI IN CLUSTERS SEEN IN AEROBIC BOTTLE SEEN IN ANAEROBIC BOTTLE Gram Stain Result -- SMEAR RESULTS CALLED TO AND READ BACK BY: Brigitte CARTER 6RDerick @ 5261 12/11/18 CDS RESULT STAPHYLOCOCCUS SPECIES, COAGULASE NEGATIVE RESULT GROWTH IN TWO OF TWO BOTTLES RESULT -- TIME TO DETECTION: 0.69 DAYS RESULT POSSIBLE CONTAMINANT, CLINICAL CORRELATION REQUIRED. RESULT Testing performed at [facility], [address] [place] [address] Comment: Testing performed at [facility], [address] [place] [address] Microbiology Results (72 hrs) Procedure Component Value Units Date/Time Culture, Blood [[id number]] Collected: 12/12/18 0502 Order Status: Completed Lab Status: Preliminary result Updated: 12/13/18 1324 Specimen: Peripheral Blood Special Requests RWRIST Special Requests Testing performed at [facility];[address] [place] [address] RESULT NO GROWTH AT THIS TIME RESULT Testing performed at [facility], [address] [place] [address] Comment: Testing performed at [facility], [address] [place] [address] Influenza A and B RNA, NAAT [[id number]] Collected: 12/11/18 1556 Order Status: Completed Lab Status: Final result Updated: 12/11/18 1619 Influenza A NEGATIVE Influenza B NEGATIVE Comment: Testing performed by Molecular Method[employer] Testing performed at [facility];[address] [place] [address] Flu Swab Collection [[id number]] Collected: 12/11/18 1546 Order Status: Completed Lab Status: Final result Updated: 12/11/18 1549 Specimen: Tissue from Nasopharynx Collection SPECIMEN RECEIVED IN LAB Comment: Testing performed at [facility];[address] [place] [address] IMAGING: No new images for review today. [...] might be different from the orig inal. 6612/6612 Hospital Day: LOS: 2 days She had [...] was completed later after rounds. Dictation software, Social Bicycles, was used which may contain error for [...] nephrology care as of 8 PM tonight. IAJw Neri, DO - 12/04 2:42 PM PDT [facility] Service: Hospitalist Progress Note Pt: Dara Weldon AGE/SEX: 23 y.o. female : 1995 ROOM: [address] [place] [address]- TODAY'S DATE: 12/13/2018 Hospital Day: LOS: 2 [...] PASP is 73 mmHg - Baseline weight [id number]. In acute exacerbation - HD per nephrology [...] this note might be different from the [facility] Service: Infectious Diseases Progress Note Hospital Day: [...] Pharmacy Consult Continuous Infusions: heparin 400 Units/hr (12/12/18826) PRN Meds:.acetaminophen, albumin, albuterol-ipratropium, nitroglycerin, ondansetron, oxyCOD [...] Procedure Component Value Units Date/Time Culture, Blood [[id number]] Collected: 12/12/18 1943 Order Status: Canceled Lab Status: No result Specimen: Peripheral Blood Culture, Body Fluid Sterile [[id number]] Order Status: No result Lab Status: No result Specimen: Body Fluid from Pleural Fluid, Right Culture, Blood [[id number]] Collected: 12/12/18 0502 Order Status: Sent Lab Status: In process Updated: 12/12/18 1005 Specimen: Peripheral Blood Influenza A and B RNA, NAAT [[id number]] Collected: 12/11/18 1556 Order Status: Completed Lab Status: Final result Updated: 12/11/18 1619 Influenza A NEGATIVE Influenza B NEGATIVE Comment: Testing performed by Molecular Methodology Testing performed at [facility];[address] [place] [address] Flu Swab Collection [[id number]] Collected: 12/11/18 1546 Order Status: Completed Lab Status: Final result Updated: 12/11/18 1549 Specimen: Tissue from Nasopharynx Collection SPECIMEN RECEIVED IN LAB Comment: Testing performed at [facility];[address] [place] [address] Culture, Blood [[id number]] Collected: 12/11/18 0615 Order Status: Completed Lab Status: Preliminary result Updated: 12/12/18 1134 Specimen: Peripheral Blood Special Requests RAC Special Requests Testing performed at [facility];[address] [place] [address] RESULT NO GROWTH AT THIS TIME RESULT Testing performed at [facility], [address] [place] [address] Comment: Testing performed at [facility], [address] [place] [address] Culture, Blood [[id number]] (Abnormal) Collected: 12/10/18 2343 Order Status: Completed Lab Status: Final result Updated: 12/13/18 1009 Specimen: Blood from Line Gram Stain Result -- GRAM POSITIVE COCCI IN CLUSTERS SEEN IN AEROBIC BOTTLE SEEN IN ANAEROBIC BOTTLE Gram Stain Result -- SMEAR RESULTS CALLED TO AND READ BACK BY: Brigitte CARTER @ 1855 12/11/18 CDS RESULT STAPHYLOCOCCUS SPECIES, COAGULASE NEGATIVE RESULT GROWTH IN TWO OF TWO BOTTLES RESULT -- TIME TO DETECTION: 0.69 DAYS RESULT POSSIBLE CONTAMINANT, CLINICAL CORRELATION REQUIRED. RESULT Testing performed at [facility], [address] [place] [address] Comment: Testing performed at [address] [address] Microbiology Results (72 hrs) Procedure Component Value Units Date/Time Culture, Blood [[id number]] Collected: 12/12/18 0502 Order Status: Sent Lab Status: In process Updated: 12/12/18 1005 Specimen: Peripheral Blood Influenza A and B RNA, NAAT [[id number]] Collected: 12/11/18 1556 Order Status: Completed Lab Status: Final result Updated: 12/11/18 1619 Influenza A NEGATIVE Influenza B NEGATIVE Comment: Testing performed by Molecular Methodology Testing performed at [facility];[address] [place] [address] Flu Swab Collection [[id number]] Collected: 12/11/18 1546 Order Status: Completed Lab Status: Final result Updated: 12/11/18 1549 Specimen: Tissue from Nasopharynx Collection SPECIMEN RECEIVED IN LAB Comment: Testing performed at [facility];[address] [place] [address] Culture, Blood [[id number]] Collected: 12/11/18 0615 Order Status: Completed Lab Status: Preliminary result Updated: 12/12/18 1134 Specimen: Peripheral Blood Special Requests RAC Special Requests Testing performed at [facility];[address] [place] [address] RESULT NO GROWTH AT THIS TIME RESULT Testing performed at [facility], [address] [place] [address] Comment: Testing performed at [facility], [address] [place] [address] Culture, Blood [[id number]] (Abnormal) Collected: 12/10/18 2343 Order Status: Completed Lab Status: Final result Updated: 12/13/18 1009 Specimen: Blood from Line Gram Stain Result -- GRAM POSITIVE COCCI IN CLUSTERS SEEN IN AEROBIC BOTTLE SEEN IN ANAEROBIC BOTTLE Gram Stain Result -- SMEAR RESULTS CALLED TO AND READ BACK BY: Brigitte CARTER 6RP @ 1855 12/11/18 CDS RESULT STAPHYLOCOCCUS SPECIES, COAGULASE NEGATIVE RESULT GROWTH IN TWO OF TWO BOTTLES RESULT -- TIME TO DETECTION: 0.69 DAYS RESULT POSSIBLE CONTAMINANT, CLINICAL CORRELATION REQUIRED. RESULT Testing performed at [facility], [address] [place] [address] Comment: Testing performed at [facility], [address] [place] [address] IMAGING: No new images for review today. [...] was completed later after rounds. Dictation software, Social Bicycles, was used which may contain error for [...] heparin 400 Units/hr (12/12/18 0827) Vida Whittaker RP - 12/12/2018 1:37 PM PDTClinical Pharmacy Note: [...] accordingly. VIDA ANDERSEN RPH, Pharmacist 12/12/2018 13:33 Minnie Aguirre MD - 12/12/2018 8:29 AM PDTFormatting of this not e might be different from the original. [facility] Adult Hospitalist Progress Note Hospital Day: [...] Med rec: Family Contact: Something about patient: Minnie Jimenes Ma, MD 8:29 12/12/2018 rost, Taylor Mckeon RP - 1 7:46 PM PDT Clinical Pharmacy Note: Piperacillin-Tazobactam (Zosyn) [facility] to initiate zosyn per Dr. Gastelum S/O: 23 y.o. female starting zosyn on [...] for appropriate dosing per renal function. TAYLOR DOCKERY RPH 19:31 12/11/2018 Pharmacist Leonard Jacobsen R [...] Leonard Garay RN at 12/11 4:15 PM Rea Carmona, JEANNINE - 12/11/2018 1:33 AM PDTCpap started and abg done as ordered. Pt somnolent but awakens easily and follows commands. documented in this encounter H&P Notes Minnie Gastelum MD - 12/11/2018 5:36 AM PDT Patient Name: Dara Weldon Date of Admission: 12/11/2018 Referring Provider: Dr. Gio Seo Source of Information: patient-Reliability Chief Complaint: Shortness of breath HPI: Pt is a 23 y/o female with [...] travel, drug or alcohol abuse, or MARSHALL Review of Systems Constitutional: Negative. HENT: Negative. Eyes: Negative. Respiratory: Positive for cough and shortness of breath. Cardiovascular: Positive for orthopnea and leg swelling. Gastrointestinal: Positive for nausea. Genitourinary: Negative. Musculoskeletal: Negative. Skin: Negative. Neurological: Positive for weakness. Psychiatric/Behavioral: Negative. PMH: Past Medical History: Diagnosis Date Asthma Clotted [...] Left; Surgeon: Blake Chavarria MD ; Location: [facility] MAIN OR AV FISTULA REPAIR Left 03/07/2014 Procedure: AV FISTULA - GRAFT REPAIR/REVISION; Surgeon: Rik Simon MD; Location: [facility] IN OR; Service: Vascular; Laterality: Left; biopsy of kidney age 10 DIALYSIS FISTULA CREATION 04/08/2014 Procedure: DIALYSIS CATHETER - INSERTION; Surgeon: Rik Simon MD; Location: [facility] MAIN OR ; Service: Vascular; Laterality: N/A; tunneled catheter.br hemodialysis catheter KIDNEY BIOPSY Left 2003 OTHER SURGICAL HISTORY LAPAROSCOPIC PERITONEAL DIALYSIS CATHETER INSERTION - x2 OTHER SURGICAL HISTORY Right 07/2013 LAPAROSCOPIC PERITONEAL DIALYSIS CATHETER INSERTION - current dialysis access MWF dialysis OTHER SURGICAL HISTORY Left 06/24/2014 SUPERFICIALIZATION OF AV FISTULA - Procedure: AV FISTULA - SUPERFICIALIZATION; Surgeon: Emanuel Simon MD; Location: [facility] MAIN OR; Service: Vascular; Laterality: Left; OTHER SURGICAL HISTORY Left 04/08/2014 AV FISTULA PLACEMENT - Procedure: AV FISTULA; Surgeon: Rik Simon MD; Location: [facility] OR; Service: Vascular; Laterality: Left; cephalic OTHER SURGICAL HISTORY Left 03/07/2014 DECLOT GRAFT - Procedure: GRAFT - DECLOT; Surgeon: Rik Simon MD; Location: [facility] MAIN OR ; Service: Vascular; Laterality: Left; peritoneal catheter Medications: No current facility-administered medications on file prior to encounter. Current Outpatient Medications on File Prior to Encounter Medication Sig Dispense Refill albuterol-ipratropium 2.5-0.5 mg/3 mL SOLN Take 3 mLs by nebulization. clopidogrel (PLAVIX) 75 mg tablet Take 1 [...] the vein Three time s a week. iron sucrose (VENOFER) 20 mg/mL injection Inject 2.5 mLs into the vein Once a week. losartan (COZAAR) 25 mg tablet Take 1 tablet by mouth Daily. 30 tablet 1 metoprolol succinate (TOPROL-XL) 50 mg 24 hr tablet Take 1 tablet by mouth daily. ondansetron (ZOFRAN) 4 mg tablet Take 4 [...] and 2 tablet with snacks twice daily Allergies: Allergies Allergen Reactions Adhesive & Tape Rash Certain tapes Fentanyl Itching Iodinated Diagnostic Agents Itching Pt c/o face itching during fistulagram Methylphenidate Other (See Comments) Patient says skin was crawling Morphine Itching and Rash Reglan [Metoclopramide] Itching Lisinopril cough FH: family history includes Alcohol abuse in her father; Heart disease in her mother; High bloo d pressure in her father; Hypertension in her father; Seizures in her mother. SH: reports that she has quit smoking. She smoked 0.50 packs per day. She has never used smok eless tobacco. She reports that she does not drink alcohol or use drugs. Physical Exam: BP 136/87 | Pulse 75 | Temp 37.4 C (99.3 F) (Oral) | Resp 20 | Wt 70.7 kg (155 lb 1 3.8 oz) | SpO2 98% | BMI 24.41 kg/m Physical Exam Constitutional: She is oriented to person, place, and time. She appears well-developed and well-nourished. HENT: Head: Normocephalic and atraumatic. Eyes: Pupils are equal, round, and reactive to light. EOM are normal. Neck: Normal range of motion. Neck supple. Cardiovascular: Normal rate and regular rhythm. Pulmonary/Chest: Decreased BS on R Abdominal: Soft. Bowel sounds are normal. Musculoskeletal: Normal range of motion. She exhibits edema. Neurological: She is alert and oriented to person, place, and time. Skin: Skin is warm and dry. Psychiatric: She has a normal mood and affect. Labs: BMP 137 100 61* 75 6.3* 19* 13.44* CaMgPhos 9.4 2.2 8.9* LFT 27 123* 22 4.3 CBC 9.27 10.3* 184 30.9* Coag 27 1.3 Last labs from current encounter as of 12/11/18-06:22 Recent Labs Lab 12/10/18 2302 TROPONINT 0.085* No results for input(s): CLARITYU, LEUKOCYTESUR, UROBILINOGEN, PHUR, BLOODU, KETONES, BILIR UBINUR, GLUCOSEU, RBCU, BACTERIA, COMU in the last 168 hours. Invalid input(s): UCOL, SPECGRAV, NITRITE, UPRO Imaging: Imaging reviewed and will be addressed as indicated in the assessment and plan. EKG: Sinus tachycardia at 130 ACTIVE COMORBIDITIES: Active comorbid conditions include: - CHF; acute on chronic; combined diastolic & systolic - hypertension; essential - obesity; due to excess calories Problem List: Principal Problem: Acute respiratory failure with hypoxia Active Problems: ESRD on hemodialysis Pericardial effusion without cardiac tamponade History of Henoch-Schonlein purpura Anemia in ESRD (end-stage renal disease) Secondary hyperparathyroidism Chronic combined systolic and diastolic heart failure Moderate to severe pulmonary hypertension Resolved Problems: * No resolved hospital problems. * Assessment and Plan: Acute Respiratory Failure Pt with acute respiratory failure secondary to CHF exacerbation from missed dialysis susy ns Will consult nephrology, treat pt symptomatically -O2 as tolerated -HD -supportive treatment Hyperkalemia Potassium of 6.8 without peaked Ts on EKG Pt given calcium gluconate, insulin and D50 [...] pleural fluid path and cultures were negative -Will order IR thoracentesis ID Pt with temp of 100.2 on admission, no clear infection on imaging or exam, WBC of 9.27 on a dmission BC X 2 sent Pt given dose of zosyn and zithromax in ER 1/2 BC positive --> zosyn 2.25 gm zosyn IV q8 hr started, will check ECHO and recheck anoth er 2 sets of blood cultures Med surg bundle DVT prophylaxis: sc heparin Code status: Full Med rec: done with pt on 12/11, Family Contact: declined for me to update family or friends Something about patient: lives alone, on disability, is not and has no children Minnie Jimenes Ma, MD 12/11/2018 I believe the patient will require a minimum of 2 midnights for appropriate medical managem ent and safe discharge planning. Kindly, see daily progress notes for further details. documented in this enco unter Procedure Notes Billie Gupta MD - 12/14/2018 9:52 AM PDTAssociated Order(s): HEMODIALYSIS [facility] Hemo-Dialysis Procedure note Pt is seen on Dialysis. Indication for Dialysis: ESRD for Clearance and UF Review of Systems: On dialysis, the patient denies nausea, vomiting, palpitations, headache s . Wants to go home Laboratory Findings Lab Results Component Value Date BUN 26 (H) 12/14/2018 CREA 7.0 (H) 12/14/2018 EGFR 7 (L) 12/14/2018 NA 137 12/14/2018 K 4.7 12/14/2018 CL 99 12/14/2018 CO2 27 12/14/2018 CALCIUM 9.4 12/14/2018 PHOS 8.9 (H) 12/10/2018 MG 2.2 12/10/2018 ALBUMIN 4.3 12/10/2018 WBC 7.00 12/14/2018 HGB 10.7 (L) 12/14/2018 PLT 200 12/14/2018 Lab Results Component Value Date COLORUA YELLOW 11/07/2018 Component Value Date/Time CREA 7.0 (H) 12/14/2018 0610 CREA 4.9 (H) 12/13/2018 0527 CREA 7.4 (H) 12/12/2018 0502 CREA 6.16 (H) 12/11/2018 1946 CREA 13.63 (H) 12/11/2018 0615 CREA 13.44 (H) 12/10/2018 2302 CREA 7.5 (H) 11/09/2018 0414 CREA 5.6 (H) 11/08/2018 0447 CREA 7.4 (H) 11/07/2018 0403 CREA 7.3 (H) 10/22/2018 0533 CREA 5.0 (H) 10/21/2018 0548 CREA 5.83 (H) 10/20/2018 0641 LABCREA 7.2 (H) 10/19/2018 0620 LABCREA 9.3 [...] (H) 06/01/2018 0443 Physical Exam Blood pressure 117/61, pulse 75, temperature 36.5 C (97.7 F), temperature source Axilla ry, resp. rate 18, height 1.702 m (5' 7"), weight 63.5 kg (139 lb 15.9 oz), SpO2 98 %, not c urrently . QB 450 AP -200 High Reach Operator 170 Constitutional: pt appears without distress. on nasal oxygen Cardiovascular: Normal rate. Exam reveals no gallop and no friction rub. No murmur heard. Pulmonary/Chest: Effort normal. No stridor. No respiratory distress. Pt has + wheezes, coar BS. Musculoskeletal: pt exhibits no edema in lower extremities . Access; pt has left AVF. It has good thrill and bruit A/P ESRD requiring HD: Hemodynamically stable on HD; continue per submitted dialysis orders. N o dialysis-related complications identified during dialysis treatment today. Modifications to orders: none Billie Gupta MD 12/14/2018 Cheryl Rios P A - 12/12/2018 12:45 PM PDTProcedure(s): THORACENTESIS USPre-Procedure Diagnose(s): Pleural effusion, rightPost-Procedure Diagnose(s): Pleural effusion, rightInterventional Radiology P ost Procedure Note Patient Name: Dara Weldon Date of : 1995 Procedure(s): Thoracentesis, right side Pre OP Diagnosis: Right pleural effusion Post OP Diagnosis: Same Statistics Professor: LUX Andre Anesthesia Type: Local- lidocaine Findings: 1,500 ml of serosanguinous fluid removed. Specimens: Pleural fluid sent for labs EBL: None Complications: None LUX Andre Interventional Radiology and Vascular Medicine Specialist documented in this en counter Consult Notes Reno Yanes MD - 12/12/2018 3:10 PM PDTAssociated Order(s): PROVIDER TO PROVIDER CONSULT [facility] Service: Infectious Diseases Initial Consult Note Date of Admission: 12/10/2018 Requesting Physician: Jw Neri DO Reason for Consult Bacteremia CHIEF COMPLAINT Presented to the ER due to hyperkalemia and fluid overload HISTORY OF PRESENT ILLNESS The patient is a 23 y.o.-year-old female with significant PMH of end-stage renal disease on hemodialysis through a left upper extremity AV fistula seen in consultation for bacteremia. This is a patient with compliance issues who has had multiple hospitalizations for fluid ov erload and missed dialysis. The patient presented on December 10, 2018 with fluid overload, p ulmonary edema, hypoxemia, hyperkalemia. Patient was admitted to the hospital for urgent di alysis. The patient was noted to have low-grade temperature on admission, 100.6 F and she was suspected of having infectious process. Her white blood cell count was 9.27, blood cul tures were obtained. The patient is difficult to poke and she had only one sample for blood culture taken from peripheral IV line. The patient was empirically covered with intravenous Zosyn since admission. She was also f ound to have a large right-sided pleural effusion which was recommended to be tapped. She h as had thoracentesis last month which revealed transudative effusion. This has now reaccumu lated due to her noncompliance. The patient had a CT of the chest abdomen and pelvis that revealed a large right-sided pleu ral effusion but no other acute process was seen. No deep-seated infection was found. Her blood culture from admission has now reported positive for gram-positive cocci in [facility] ers. She had had repeat blood cultures on December 11, 2018 which are no growth so far and al so repeat blood cultures this morning. The patient also had thoracentesis done today with e xtraction of 1.5 L of dark yellow fluid. Infectious Disease (ID) consult requested for further evaluation and management. Patient denies any issues with her left upper extremity fistula. She has had multiple oper ations in the past with vascular surgery, Dr. Simon. At the moment she denies any redness, sw elling, pain in the fistula area. PAST MEDICAL HISTORY Past Medical History: Diagnosis Date Asthma Clotted dialysis access (FORMERLY [facility]) 2014 Congestive heart failure (HCC) ESRD (end stage renal disease) (FORMERLY [facility]) HSP (Henoch-Schonlein purpura) nephritis (FORM[facility]) 1987 Hypertension Pericardial effusion without cardiac tamponade 11/07/2018 Past Surgical History: Procedure Laterality Date ABDOMEN SURGERY AV FISTULA REPAIR 02/24/2014 LEFT Radical Cephalic Fistula Creation; Laterality: Left; Surgeon: Blake Chavarria MD ; Location: [facility] MAIN OR AV FISTULA REPAIR Left [...] SUPERFICIALIZATION; Surgeon: Emanuel Simon MD; Location: [facility] MAIN OR; Service: Vascular; Laterality: Left; OTHER SURGICAL HISTORY Left 04/08/2014 AV FISTULA PLACEMENT - Procedure: AV FISTULA; Surgeon: Rik Simon MD; Location: [facility] OR; Service: Vascular; Laterality: Left; cephalic OTHER SURGICAL HISTORY Left 03/07/2014 DECLOT GRAFT - Procedure: GRAFT - DECLOT; Surgeon: Rik Simon MD; Location: [facility] OR ; Service: Vascular; Laterality: Left; peritoneal catheter Social History Socioeconomic History Marital status: Single [...] on father's side had a brain tumor. IMMUNIZATIONS: stated as current, but no records available Family History Problem Relation Age of Onset High blood pressure Father Heart disease Mother Seizures Mother Hypertension Father Alcohol abuse Father Current Facility-Administered Medications Medication Dose Route Frequency Provider Last Rate Last Dose acetaminophen (TYLENOL) tablet 650 mg 650 mg Oral Q4H PRN Minnie Mckeon Ma, MD albumin 25% IVPB 25 g 25 g Intravenous Dialysis - PRN Cliff Duarte MD albuterol-ipratropium 2.5-0.5 mg/3 mL nebulizer solution 3 mL 3 mL Nebulization RT Q4H PRN Minnie Mckeon Ma, MD clopidogrel (PLAVIX) tablet 75 mg 75 mg Oral Daily Minnie Mckeon Ma, MD 75 mg at 9 1349 epoetin jenna-epbx (RETACRIT) 10,000 units/mL injection 10,000 Units 10,000 Units Intra venous With each dialysis Cliff Duarte MD 10,000 Units at 12/11/18 1145 heparin 1,000 units/mL injection 400 Units/hr Intravenous Dialysis - Continuous Cliff Duarte MD 0.4 mL/hr at 12/12/18 0827 400 Units/hr at 12/12/18 0827 heparin 5,000 units/mL injection 5,000 Units 5,000 Units Subcutaneous 2 times per day Minnie Mckeon Ma, MD losartan (COZAAR) tablet 25 mg 25 mg Oral Daily Minnie Mckeon Ma, MD 25 mg at 12/12/18 1 347 metoprolol succinate (TOPROL-XL) ER tablet 50 mg 50 mg Oral Daily Minnie Mckeon Ma, MD 5 0 mg at 12/12/18 1350 nitroglycerin (NITROSTAT) SL tablet 0.4 mg 0.4 mg Sublingual Q5 Min PRN Camille Petersen 0.4 mg at 12/11/18 0026 ondansetron (ZOFRAN) injection 4 mg 4 mg Intravenous Q6H PRN Minnie Mckeon Ma, MD 4 mg a t 12/11/18 2208 oxyCODONE (ROXICODONE) tablet 5-10 mg 5-10 mg Oral Q4H PRN Minnie Mckeon Ma, MD 5 mg at 12/12/18 1409 pantoprazole (PROTONIX) DR tablet 40 mg 40 mg Oral QAM AC Minnie Mckeon Ma, MD 40 mg at 12/12/18 0545 piperacillin-tazobactam (ZOSYN) IVPB 3.375 g 3.375 g Intravenous 2 times per day Taylor H Dockery, RPH 12.5 mL/hr at 12/12/18 1422 3.375 g at 12/12/18 1422 sevelamer carbonate (RENVELA) tablet 1,600 mg 1,600 mg Oral TID Minnie Mckeon Ma, MD 1,600 mg at 12/12/18 1347 sodium chloride 0.9% (NS) bolus 100 mL 100 mL Intravenous Dialysis - PRN Cliff Duarte MD sodium chloride 0.9% (NS) bolus 100 mL 100 mL Intravenous Dialysis - PRN Cliff Duarte MD [START ON 12/13/2018] vancomycin 750 mg in sodium chloride 0.9% 250 mL IVPB 750 mg Int ravenous See Admin Instructions Vida Andersen, [facility] vancomycin in saline IVPB 1.75 g 25 mg/kg Intravenous Once Katie MckeeD 250 mL/hr at 12/12/18 1350 1.75 g at 12/12/18 1350 vancomycin per pharmacy Other Pharmacy Consult Jw Neri DO ALLERGIES Allergies Allergen Reactions Adhesive & Tape Rash Certain tapes Fentanyl Itching Iodinated Diagnostic Agents Itching Pt c/o face itching during fistulagram Methylphenidate Other (See Comments) Patient says skin was crawling Morphine Itching and Rash Reglan [Metoclopramide] Itching Lisinopril cough REVIEW OF SYSTEMS 12+ systems reviewed. Negative except as per HPI. PHYSICAL EXAM Vital Signs: BP 122/70 | Pulse 89 | Temp 36.6 C (97.9 F) (Oral) | Resp 16 | Ht 1.702 m (5' 7") | Wt 70.3 kg (155 lb) | LMP (LMP Unknown) | SpO2 98% | ? No | BMI 24.28 kg /m General Appearance: Alert, cooperative, no distress. Obese. Head: Normocephalic, without obvious abnormality, atraumatic. Lips, mucosa, and tongue normal; dentition normal; no thrush present. Eyes: PERRL, conjunctiva/corneas clear, EOM's intact. Throat: Oropharynx without exudates. Neck: Supple, symmetrical, trachea midline, no adenopathy; thyroid: no enlargement/tenderness/nodules; no carotid bruit or JVD Back: Symmetric, no curvature, ROM normal, no CVA tenderness Lungs: Decreased breath sounds bilaterally, respirations unlabored Chest Wall: No tenderness or deformity Heart: Regular rate. No murmurs. Abdomen: Soft, non-tender, bowel sounds active all four quadrants, no masses, no organomegaly Extremities: Extremities normal, atraumatic, no cyanosis or edema Pulses: 2+ and symmetric all extremities Skin: Multiple tattoos, skin color, texture, turgor normal, no rashes or lesions Lymph nodes: Cervical, supraclavicular, and axillary nodes normal Neurologic: Alert, oriented, no focal deficits. Venous access: Venous access: PIV. REVIEW OF LABS: All labs were reviewed. Recent Results (from the past 24 hour(s)) Flu Swab Collection Result Value Ref Range Collection SPECIMEN RECEIVED IN LAB Influenza A and B RNA, NAAT Result Value Ref Range Influenza A NEGATIVE NEG Influenza B NEGATIVE NEG Basic Metabolic Panel Result Value Ref Range Na 138 135 - 145 mmol/L K 4.2 3.5 - 4.9 mmol/L Cl 98 (L) 99 - 109 mmol/L CO2 31 23 - 32 mmol/L Anion Gap 13 5 - 20 mmol/L Glucose 85 65 - 99 mg/dL BUN 32 (H) 8 - 25 mg/dL Creatinine 6.16 (H) 0.50 - 1.00 mg/dL BUN/Creatinine Ratio 5 Calcium 9.4 8.5 - 10.5 mg/dL Estimated GFR 9 (L) >60 mL/min/1.73m2 Basic Metabolic Panel Result Value Ref Range Na 137 135 - 145 mmol/L K 4.4 3.5 - 4.9 mmol/L Cl 98 (L) 99 - 109 mmol/L CO2 28 23 - 32 mmol/L Anion Gap 15 5 - 20 mmol/L Glucose 78 65 - 99 mg/dL BUN 38 (H) 8 - 25 mg/dL Creatinine 7.4 (H) 0.50 - 1.00 mg/dL BUN/Creatinine Ratio 5 Calcium 8.9 8.5 - 10.5 mg/dL Estimated GFR 7 (L) >60 mL/min/1.73m2 CBC no Differential Result Value Ref Range WBC 4.88 3.80 - 11.00 K/uL RBC 2.72 (L) 3.70 - 5.10 M/uL Hemoglobin 9.8 (L) 11.3 - 15.5 g/dL Hematocrit 29.2 (L) 34.0 - 46.0 % MCV 107.2 (H) 80.0 - 100.0 fl MCH 36.0 (H) 27.0 - 34.0 pg MCHC 33.6 32.0 - 35.5 g/dL RDW-SD 60.8 (H) 37 - 53 fl Platelet Count 153 150 - 400 K/uL MPV 9.8 fl C-Reactive Protein Result Value Ref Range CRP 8.6 (H) <0.5 mg/dL Echo Limited Result Value Ref Range LVEF-TTE TRANSTHORACIC ECHO 50 % BASELINE BLOOD PRESSURE 138/79 mmHg Patient Weight (lbs) 155lbs Patient Height 67in Inferior Vena Cava Diameter at Expiration 1.76 cm RA PRESSURE 8 mmHg TR Peak Gradient 63 mmHg TR Velocity 396.13 cm LV Moody's Biplane EF 52 % LV ED Volume (Moody's) 151.83 ml LV ED Volume Index 84 ml/m2 LV ES Volume 72.3 ml RVSP Estimated 71 mmHg LV ES Volume Index 40 ml/m2 Heart Rate 80 MICROBIOLOGY Microbiology Results (Last 14 Days by Collected Date with Culture/Sensitivity) Procedure Component Value Units Date/Time Culture, Blood [[id number]] Collected: 12/12/18 0502 Order Status: Sent Lab Status: In process Updated: 12/12/18 1005 Specimen: Peripheral Blood Influenza A and B RNA, NAAT [[id number]] Collected: 12/11/18 1556 Order Status: Completed Lab Status: Final result Updated: 12/11/18 1619 Influenza A NEGATIVE Influenza B NEGATIVE Comment: Testing performed by [employer] Testing performed at [facility];[address] [place] [address] Flu Swab Collection [[id number]] Collected: 12/11/18 1546 Order Status: Completed Lab Status: Final result Updated: 12/11/18 1549 Specimen: Tissue from Nasopharynx Collection SPECIMEN RECEIVED IN LAB Comment: Testing performed at [facility];[address] [place] [address] Culture, Blood [[id number]] Collected: 12/11/18 0615 Order Status: Completed Lab Status: Preliminary result Updated: 12/12/18 1134 Specimen: Peripheral Blood Special Requests RAC Special Requests Testing performed at [facility];[address] [place] [address] RESULT NO GROWTH AT THIS TIME RESULT Testing performed at [facility], [address] [place] [address] Comment: Testing performed at [facility], [address] [place] [address] Culture, Blood [[id number]] (Abnormal) Collected: 12/10/18 2343 Order Status: Completed Lab Status: Preliminary result Updated: 12/11/18 2226 Specimen: Blood from Line Gram Stain Result -- GRAM POSITIVE COCCI IN CLUSTERS SEEN IN AEROBIC BOTTLE SEEN IN ANAEROBIC BOTTLE Gram Stain Result -- SMEAR RESULTS CALLED TO AND READ BACK BY: Brigitte CARTER 6RP @ 2188 12/11/18 CDS RESULT CULTURE IN PROGRESS RESULT GROWTH IN TWO OF TWO BOTTLES RESULT -- TIME TO DETECTION: 0.69 DAYS RESULT Testing performed at [facility], [address] [place] [address] Comment: Testing performed at [address] [address] Microbiology Results (72 hrs) Procedure Component Value Units Date/Time Culture, Blood [[id number]] Collected: 12/12/18 0502 Order Status: Sent Lab Status: In process Updated: 12/12/18 1005 Specimen: Peripheral Blood Influenza A and B RNA, NAAT [[id number]] Collected: 12/11/18 1556 Order Status: Completed Lab Status: Final result Updated: 12/11/18 1619 Influenza A NEGATIVE Influenza B NEGATIVE Comment: Testing performed by Molecular Method[employer] Testing performed at [facility];[address] [place] [address] Flu Swab Collection [[id number]] Collected: 12/11/18 1546 Order Status: Completed Lab Status: Final result Updated: 12/11/18 1549 Specimen: Tissue from Nasopharynx Collection SPECIMEN RECEIVED IN LAB Comment: Testing performed at [facility];[address] [place] [address] Culture, Blood [[id number]] Collected: 12/11/18 0615 Order Status: Completed Lab Status: Preliminary result Updated: 12/12/18 1134 Specimen: Peripheral Blood Special Requests RAC Special Requests Testing performed at [facility];[address] [place] [address] RESULT NO GROWTH AT THIS TIME RESULT Testing performed at [facility], [address] [place] [address] Comment: Testing performed at [facility], [address] [place] [address] Culture, Blood [[id number]] (Abnormal) Collected: 12/10/18 2343 Order Status: Completed Lab Status: Preliminary result Updated: 12/11/182225 Specimen: Blood from Line Gram Stain Result -- GRAM POSITIVE COCCI IN CLUSTERS SEEN IN AEROBIC BOTTLE SEEN IN ANAEROBIC BOTTLE Gram Stain Result -- SMEAR RESULTS CALLED TO AND READ BACK BY: Brigitte CARTER 6RP @ 9692 12/11/18 CDS RESULT CULTURE IN PROGRESS RESULT GROWTH IN TWO OF TWO BOTTLES RESULT -- TIME TO DETECTION: 0.69 DAYS RESULT Testing performed at [facility], [address] [place] [address] Comment: Testing performed at [facility], [address] [place] [address] [address] chest were reviewed. Images of CT abdomen and pelvis reviewed. My interpretation: No evidence of acute infectious process. Right-sided pleural effusion. DIAGNOSES: Active Hospital Problems Diagnosis Date Noted Pericardial effusion without cardiac tamponade 11/07/2018 Priority: High ESRD on hemodialysis Priority: High Pulmonary edema with congestive heart failure with reduced left ventricular function 0 11/06/2018 ESRD on hemodialysis 11/06/2018 Troponin I above reference range 07/19/2018 [...] Hospital Problems No resolved problems to display. ASSESSMENT AND RECOMMENDATIONS The patient is a 23 y.o.-year-old female with the following problems: 1. Low-grade fever Clinically does not appear toxic and does not have any signs of ongoing infection. 2. Gram-positive cocci in clusters bacteremia. Patient is hard to stick. The patient most likely has contamination. She has been well co arya with intravenous vancomycin. We will await for final identification of the gram-posit eboni cocci in clusters. If this is indeed a contaminant all antibiotics will be stopped. We will also investigate her pleural fluid for infection due to prior thoracentesis in the past with possibility of infection. Her AV fistula is intact with no signs of infection. 3. May stop IV Zosyn. 4. Large right-sided pleural effusion Slightly transudative. Fluid tests are pending. Discussed with attending provider: Jw Neri DO . Thank you for this consultation. Will follow along. Reno Thacker MD, MPH Infectious Diseases 12/12/18 Cliff Duarte MD - 12/11/2018 1:28 PM PDTAssociated Order(s): PROVIDER TO PROVIDER CONSUL T 6612/[id number] Hospital Day: LOS: 0 days CHIEF COMPLAINT: I need my dialysis HISTORY OF PRESENT ILLNESS: Dara Weldon is a 23 y.o. woman with anuric ESRD who follows up with Dr. Jonathan Alonso MD as primary care provider. She is normally dialyzed on a Monday, Monday, Monday schedule at [facility] using left upper extremity AV fistula. She used to see Dr. Trent Camp but has switched to Emanuel Anguiano. She also has combined diastolic/systolic congestive heart failure and was recently hospital ized at [facility] with hypervolemia and right pleural effusion. She missed her last 2 dialysis sessions (12/05 and 12/07 with "lack of transport). Of note anitha quarles has a history of missing dialysis treatments and non adherence to diet/fluid restriction a nd has had multiple hospitalizations at [facility] last year with similar presentation. She presented to ED with shortness of breath/chest pains. Imaging was consistent with recurrent hypervolemia. Lab work up showed severe hyperkalemia without EKG changes. She was admitted. Nephrology consultation was requested by Dr. Powers for evaluation and management of ESRD As sociated with: fluid electrolyte acid base imbalances including hyperkalemia. Records from [facility] reviewed. Last outpatient HD was 12/05/18. She was transferred to 6th floor and begun on dialysis and was seen on dialysis with RN, Matthew feliz. She indicated having "pain in my kidneys". She also indicated not smoking or vaping but indicated smoking marijuana. PMH, PSH, Social history reviewed in chart. [...] mLs by nebulization. Historical Provid MD ramonita clopidogrel (PLAVIX) 75 mg tablet Take 1 [...] snacks twice daily 06/01/18 06/01/19 Historical Provider, Vital Signs: BP 136/85 | Pulse 72 | Temp 36.6 C (97.8 F) | Resp 16 | Wt 70.7 kg (155 lb 13.8 oz) | SpO2 97% | BMI 24.41 kg/m Data evaluation: Lab Results Component Value Date BUN 84 (H) 12/11/2018 EGFR 3 (L) 12/11/2018 NA 136 12/11/2018 K 6.8 (HH) 12/11/2018 CL 98 (L) 12/11/2018 CO2 22 (L) 12/11/2018 PHOS 8.9 (H) 12/10/2018 MG 2.2 12/10/2018 HGB 10.3 (L) 12/10/2018 Lab Results Component Value Date HGB 10.3 (L) 12/10/2018 HGB 9.4 (L) 11/09/2018 HGB 10.6 (L) 11/08/2018 Lab Results Component Value Date ANIONGAP 23 (H) 12/11/2018 Lab Results Component Value Date TROPONINT 0.085 (H) 12/10/2018 TROPONINT 0.045 (H) 11/07/2018 TROPONINT 0.045 (H) 11/06/2018 Lab Results Component Value Date BNP 1,151.26 (H) 10/17/2018 BNP 1,153.92 (H) 05/27/2018 BNP 1,728.24 (H) 05/26/2018 Lab Results Component Value Date CRP 5.1 (H) 05/28/2018 Ct Chest Abdomen [...] hemodialysis 3. Nonadherence to dialysis prescription 4. Hyperkalemia 5. IAG metabolic acidosis 6. Hyperphosphatemia 7. Recurrent right pleural effusion 8. Anemia, [...] Plan of care was discussed with Dr. Powers on admission. I thank Dr Gio for giving me the opportunity to take part in her care with multiple compl ex medical problems. Do not hesitate to contact me if you have any questions. Cliff Duarte MD 12/11/2018 She was seen earlier in the day and charting was completed later after rounds. Dictation software, [employer], was used which may contain error for [...] 10,000 Units Intravenous With each dialysis heparin (dialysis) 3,000 Units Intravenous With each dialysis heparin 5,000 Units Subcutaneous 2 times per day [START ON 12/12/2018] losartan 25 mg Oral Daily losartan 25 mg Oral Once [START ON 12/12/2018] metoprolol succinate 50 mg Oral Daily metoprolol succinate 50 mg Oral Once pantoprazole 40 mg Oral QAM AC sevelamer carbonate 1,600 mg Oral TID WC heparin (dialysis) 400 Units/hr (12/11/18 1018) [facility] Notes Lawrence Barajas MD - 12/11/2018 8:15 AM PDTPatient is boarding waiting for dialysis given electrolyte abnormality's and mild pulmonary edema. Critical result called from lab on repeat chemistry panel this morning. Potassium at 6.8. Repeat EKG without significant hyperkalemic changes. 12 Lead ECG - Emergency Physician Interpretation: ECG obtained to evaluate dysrhythmia or possible ACS Rhythm: normal sinus rhythm Ventricular Rate: [address]: normal [place] Interval: The intervals are normal. ST Segments: The ST segments and T-waves are normal. T Waves: ITW lead none Significant Q-waves: none Blocks: none Comparison to a prior ECG: Unchanged Nondiagnostic for ischemia. --> I called and updated hospitalist (Dr. Gastelum), as well as nephrology (Dr. Duarte). She nee ds dialysis however This cannot be done until she is placed in a bed. --> I continued with medical management, insulin, glucose, calcium. --> I spoke with [facility] who will try and help with expediting bed placement. Patient remains hemodynamically stable Lawrence Barajas MD 12/11/18 0834 Yasmin Kent RN - 12/11/2018 7:15 AM PDTReport from Michelle SAMUELS. Pt hypoxic, O2 78% on RA. Patient asked to keep oxymask on, O2 increased to 98%. Decreased O2 from 8L to 6L O2 via oxymask. Electronica lly signed by Yasmin Guevara RN at 12/11/2018 8:02 AM Yasmin Kent RN - 9 7:15 AM Tulio RN received report from Michelle. Michelle Espinal RN - 12/11/2018 6:36 AM PDTP t continues to take off simple mask. Pt encouraged to put mask back on and made aware of the risk of having low SPO2. notified. Will continue to monitor and encourage pt to leave ma sk on Michelle Brooks RN - 12/11/2018 5:58 AM PDTLab called and notified about lab d raw needed Michelle Espinal RN - 12/11/2018 5:31 AM PDTPt continues to take off oxyma sk. Pt spo2 79%. Pt educated on importance of leaving mask on. Pt stated she understood the importance of oxygenation and agreeable to leave mask on. Mask placed on pt spo2 98% . Will continue to monitor Michelle Espinal RN - 12/11/2018 4:37 AM PDTPt continues to take off simple mask. Pt spo2 79%. Pt educated on importance of leaving mask on and the importanc e of oxygenation. Pt verbalized understanding. Will continue to monitor. provider notified E lectronically signed by Michelle Main RN at 12/11/2018 4:39 AM Michelle Hernandez RN - 12/11/2018 4:07 AM PDTRt at bedside Michelle Espinal RN - 12/11/2018 4:00 AM PDTRT rea notified of need to readjust mask. Michelle Espinal RN - 12/11/2018 3:57 AM PDTPt requiring continuous coaching/prompting on leaving CPAP mask on. Pt educated on importance of leaving mask on Michelle Espinal RN - 12/11/2018 3:0 5 AM PDTPt requires continuous prompting to leave CPAP mask on. Pt educated on importance of leaving mask on. t verbalizes understanding. Will continue to monitor Michelle Espinal RN - 12/11/2018 2:40 AM PDTPt continues to take CPAP mask off. Pt educated on importance of leaving mask on. Pt verbalizes understanding and agreeable to leave mask on Electronicall y signed by Michelle Main RN at 12/11/2018 3:56 AM Kourtney Espinal RN - 12/11/2018 1:17 AM PDTRT notified of cpap order Eda Larose RN - 12/11/2018 1:15 AM PDTRT called for CPAP.Electronically signed by Eda Viera RN at 9 1:15 AM Michelle Espinal RN - 12/11/2018 1:00 AM PDTPt continues to rem ove nasal canula. sats 70% on RA. Pt educated on importance of leaving nasal canula on. Pt s ates understanding and agreeable to leave nasal canula on Eda Larose RN - 12/11/2018 12:59 AM PDTProvider notified of pt RR, diaphoresis and need for more O2. Andie Rosenthal RN - 12/11/2018 12:19 A M PDTCritical value taken from lab over the phone, potassium of 6.3, Dr Powers advised. Elect ronically signed by Andie Lopez RN at 12/11/2018 12:21 AM PDTRayray Powers MD - 019 11:07 PM PDT [facility] Department of Emergency Medicine 7:21 Pt Room: ED02/ED02 History of Present Illness Patient Identification Dara Weldon is a 23 y.o. female. Patient information was obtained from patient History/Exam limitations: none. Patient presented to the Emergency Department by: pov History of Presenting Illness The patient is a 23 y.o. female presenting with Chief Complaint Patient presents with Chest Pain Location-chest, respiratory Onset-last few days Duration-worsening Severity and Character-moderate to severe short of breath and sharp chest pain Worse with-exertion, missing dialysis, laying down Better with-sitting up Radiation-none Denies- headache, vision change, sore throat, cough, abdominal pain, vomiting, diarrhea, constipation, blood in the urine or stool, rash, fever, mood change Admits-chest pain, shortness of breath, nausea, fluid overload Context-patient has a history of end-stage renal disease on hemodialysis Monday F riday due to 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 She states that she has been leaving dialysis early due to anxiety and last dialysis was monday which was 6 days ago. She missed Monday and then again today. She started to have chest pain she states that this happens when she develops too much fluid. PCP: Jonathan Alonso MD Specialists: Past Medical History: Diagnosis Date Asthma Clotted dialysis access ([facility]) 2014 Congestive heart failure (HCC) ESRD (end stage renal disease) ([facility]) HSP (Henoch-Schonlein purpura) nephritis ([facility]) 1987 Hypertension Pericardial effusion without cardiac tamponade 11/07/2018 Past Surgical History: Procedure Laterality Date ABDOMEN SURGERY AV FISTULA REPAIR 02/24/2014 LEFT Radical Cephalic Fistula Creation; Laterality: Left; Surgeon: Blake Chavarria MD ; Location: [facility] MAIN OR AV FISTULA REPAIR Left 03/07/2014 Procedure: AV FISTULA - GRAFT REPAIR/REVISION; Surgeon: Rik Simon MD; Location: [facility] OR; Service: Vascular; Laterality: Left; [...] SUPERFICIALIZATION; Surgeon: Emanuel Simon MD; Location: [facility] OR; Service: Vascular; Laterality: Left; OTHER SURGICAL HISTORY Left 04/08/2014 AV FISTULA PLACEMENT - Procedure: AV FISTULA; Surgeon: Rik Simon MD; Location: [facility] OR; Service: Vascular; Laterality: Left; cephalic OTHER SURGICAL HISTORY Left 03/07/2014 DECLOT GRAFT - Procedure: GRAFT - DECLOT; Surgeon: Rik Simon MD; Location: [facility] OR ; Service: Vascular; Laterality: Left; peritoneal catheter Prior to Admission medications Medication Sig Start Date End Date Taking? Authorizing Provider albuterol-ipratropium 2.5-0.5 mg/3 mL SOLN Take 3 mLs by nebulization. Historical Provid erMD clopidogrel (PLAVIX) 75 mg tablet Take 1 [...] 1 tablet by mouth daily. 07/24/18 Historical ProviderMD ondansetron (ZOFRAN) 4 mg tablet Take 4 [...] Seizures Mother Hypertension Father Alcohol abuse Father I have personally reviewed the social history, pertinent history has been addressed. Review of Systems Complete review of systems obtained and negative except as stated above in HPI Physical Exam Temp: (!) 38.1 C (100.6 F) Pulse: 125 Resp: (!) 36 BP: (!) 182/108 SpO2: (!) 78 % Vital signs interpretation: Febrile, tachycardic, tachypneic, hypertensive, hypoxic Pulse Oximetry interpretation: Abnormal General: Ill-appearing female sitting straight up in bed breathing quickly Head: Normocephalic, atraumatic Eyes: Normal inspection, pupils equal and round, non-icteric. EOMI ENT: External Ears normal Nose normal Slightly tacky mucous membranes Oropharynx clear Neck: Normal inspection Supple Cardiovasc: Tachycardic rate and rhythm normal No murmurs Respiratory: Breath sounds coarse bilaterally and decreased in bases. Wet sounding cough. Abdomen: Soft, nondistended, with very minimal tenderness diffusely No guarding or rebound No peritoneal sign Genitourinary: Deferred Rectal exam: Deferred Back: Normal inspection Extremities: Peripheral edema. Slightly mottled Skin: Slightly mottled, Warm consistent with fever No rash Neuro: Alert, no AMS No gross motor/sensory deficits Moving all extremities Psych: Normal Mood Poor judgement Medical Decision Making and Emergency Department Course ED Department Course 23 y.o. female presents to the ED with a chief complaints of chest pain. Patient is tachy cardic, febrile, tachypneic. Patient appears to be fluid overloaded. Concern for sepsis. Patient source may be pneumonia based on respiratory but this is difficult due to potential pulmonary edema as well. Patient has some mild diffuse abdominal tenderness. She does feel that it hurts a little bit to urinate although she does not make much urine. Considered UT I. Unlikely spontaneous bacterial peritonitis. Patient is very healthy and could have endo carditis. Will obtain labs and potential imaging and reevaluate the patient. Will call [facility] hrology as dialysis would likely be required for definitive management ====EKG Interpretation==== Time: 2213 Rate: 127 Rhythm: sinus tachycardia [place] Laird: left Intervals: Normal ST: No significant ST elevations or depressions T Waves: No significant peaked Other: None Compared to ekg done November 07, 2018 Overall Impression: Non-specific EKG with sinus tachycardia but no significant hyperkalemia changes Interpreted by Rayray Powers MD Rhythm strip analysis: Sinus tachycardia with rate of 127 Review of vitals Temp: 37.4 C (99.3 F) Pulse: 78 Resp: 20 BP: 141/80 SpO2: 98 % I personally reviewed the labs and imaging results obtained below. Pertinent positive and negative findings have been addressed appropriately and I have discussed any clinically impo rtant abnormal labs with the patient. Patient's ABG is somewhat compensated although she is retaining some CO2 and acidotic. Hector l place on CPAP Patient's white count is normal. Will check influenza. Still meets all the other surgical care concerning for sepsis. She is immunocompromised and may not mount a significant white count. Medical Decision Making as of Dec 11 704 Tue Dec 11, 2018 0108 Called and spoke a second time with Dr. Duarte to relate the results of the blood work . Patient's potassium is 6.3 but does not have significant EKG changes except for the tachy cardia. He states that he would not give her any fluids and that dialysis could be done in the morning. I let him know my concerns with fluid overload but as long as her blood pressu re is in the 140s to 150s as it has been he would not start dialysis right now 0112 Patient reevaluated. She is now needing oa venti mask. Reexamined her belly and it i s nontender after some pain meds. I am concerned for primary pulmonary pathology with poten tial pneumonia as well as effusion and fluid overload. 0117 Call made to ICU. They will come see the patient 0201 Spoke with ICU. Think she can go to the step down Patient is doing better on CPAP. She does not require intubation at this time. 6 AM. Still awaiting hospitalist for admission and nephrology for dialysis. Will repeat B MP Medications nitroglycerin (NITROSTAT) SL tablet 0.4 mg (0.4 mg Sublingual Given 12/11/18 0026) albuterol-ipratropium 2.5-0.5 mg/3 mL nebulizer solution 3 mL (not administered) clopidogrel (PLAVIX) tablet 75 mg (not administered) losartan (COZAAR) tablet 25 mg (not administered) metoprolol succinate (TOPROL-XL) ER tablet 50 mg (not administered) pantoprazole (PROTONIX) DR tablet 40 mg (not administered) sevelamer carbonate (RENVELA) tablet 1,600 mg (not administered) ondansetron (ZOFRAN) injection 4 mg (not administered) ondansetron (ZOFRAN) injection 4 mg (not administered) heparin 5,000 units/mL injection 5,000 Units (not administered) acetaminophen (TYLENOL) tablet 650 mg (not administered) ondansetron (ZOFRAN) injection 4 mg (4 mg Intravenous Given 12/10/18 2344) HYDROmorphone (DILAUDID) injection 1 mg (1 mg Intravenous Given 12/10/18 2348) piperacillin-tazobactam (ZOSYN) IVPB 3.375 g (0 g Intravenous Stopped 12/11/18 0143) calcium gluconate in saline 1 g/50 mL IVPB 1 g (0 g Intravenous Stopped 12/11/18 0220) azithromycin (ZITHROMAX) 500 mg in sodium chloride 0.9% 250 mL IVPB (0 mg Intravenous Stopp ed 12/11/18 0407) promethazine (PHENERGAN) (IV ONLY) injection 12.5 mg (12.5 mg Intravenous Given 12/11/18 024 3) Records Reviewed Old medical records. Previous electrocardiograms. Nursing notes. Laboratory Evaluation Labs Reviewed COMPREHENSIVE METABOLIC PANEL - Abnormal; Notable for the following components: Result Value K 6.3 (*) CO2 19 (*) Anion Gap 24 (*) BUN 61 (*) Creatinine 13.44 (*) ALK PHOS 123 (*) Estimated GFR 3 (*) All other components within normal limits PHOSPHORUS - Abnormal; Notable for the following components: Phosphorus 8.9 (*) All other components within normal limits CBC WITH DIFFERENTIAL - Abnormal; Notable for the following components: RBC 2.88 (*) Hemoglobin 10.3 (*) Hematocrit 30.9 (*) MCV 107.2 (*) MCH 35.7 (*) RDW-SD 63.4 (*) Absolute Band Neutrophils 0.74 (*) Absolute Lymphocytes 0.46 (*) All other components within normal limits TROPONIN I - Abnormal; Notable for the following components: Troponin T 0.085 (*) All other components within normal limits POC CG 4, ISTAT ARTERIAL - Abnormal; Notable for the following components: pH, Arterial, POC 7.229 (*) pCO2, Arterial 50 (*) HCO3, Arterial 21 (*) TCO2, Arterial, POC 22 (*) POC Base Deficit mmol/L 7 (*) All other components within normal limits CULTURE, BLOOD CULTURE, BLOOD FLU SWAB COLLECTION MAGNESIUM PROTIME INR LACTIC ACID LACTIC ACID URINALYSIS, REFLEX MICROSCOPIC AND/OR CULTURE BASIC METABOLIC PANEL I personally reviewed the lab results and they have been posted to the chart. Pertinent po sitive and negative findings have been addressed appropriately and I have discussed any abno rmal labs with the patient. Radiology and EKG Evaluation Ct Chest Abdomen Pelvis Wo Contrast Result [...] Lewis John Sign Date/Time: 9 11:50 PM Final diagnoses: Sepsis, due to unspecified organism, unspecified whether acute organ dysfunction present (H CC) Pneumonia of right lower lobe due to infectious organism (HCC) Hypoxia Hypervolemia, unspecified hypervolemia type ESRD on dialysis (HCC) Hyperkalemia Acute on chronic respiratory failure with hypoxia and hypercapnia (HCC) Disposition: ED Disposition ED Disposition Condition Comment Admit Attending: MINNIE GASTELUM [[id number]] ED Prescriptions None Procedures 150 minutes of critical care time were spent at the bedside, reviewing test results, discus sing the case with staff, documenting the medical record and time spent with family members. Pt's care involved decision making of high complexity to assess, manipulate, and support vi mary kate organ system failure and/or to prevent further life or limb threatening deterioration of the patient's condition.The failure to initiate these interventions on an urgent basis woul d likely have resulted in sudden, clinically significant or life or limb threatening deterio ration in the patient's condition. Critical care time excludes any time spent doing procedur es Rayray Powers MD 12/11/18721 Tiffanie Herrera RN - 12/10/2018 10:20 PM PDTPt reports has not had dialysis since Monday, was see in [facility] ED for CP, dx with pulmonary edema and stated she needed to get dialysis and was not a ble to get it today due to rideElectronically signed by Tiffanie Guzmán RN at 019 10:21 PM PDTdocumented in this encounter Miscellaneous Notes Plan of Care - Jannet Blake, RN - 12/14/2018 1:31 PM PDTPt being discharged home. AVS and prescriptions reviewed with pt and family. Copy of AVS provided. Questions answered by family and pt. Pt left floor ambulatory to home. VSS. No acute observations noted. Electron ically signed by Jannet Blake RN at 12/14/2018 1:32 PM PDTPlan of Care - Makeda Blake RN - 12/14/2018 1:17 PM PDT Problem: Adult Inpatient Plan of Care Goal: Plan of Care Review Outcome: Met Goal: Patient-Specific Goal Outcome: Met Goal: Absence of Hospital-Acquired Illness or Injury Outcome: Met Goal: Optimal Comfort and Wellbeing Outcome: Met Goal: Readiness for Transition of Care Outcome: Met Goal: Rounds/Family Conference Outcome: Met Problem: Adjustment to Illness (Chronic Kidney Disease) Goal: Optimal Coping with Chronic Illness Outcome: Met Problem: Electrolyte Imbalance (Chronic Kidney Disease) Goal: Electrolyte Balance Outcome: Met Problem: Fluid Volume Excess (Chronic Kidney Disease) Goal: Fluid Balance Outcome: Met Problem: Functional Decline (Chronic Kidney Disease) Goal: Optimal Functional Ability Outcome: Met Problem: Hematologic Alteration (Chronic Kidney Disease) Goal: Absence of Anemia Signs/Symptoms Outcome: Met Problem: Oral Intake Inadequate (Chronic Kidney Disease) Goal: Optimal Oral Intake Outcome: Met Problem: Renal Function Impairment (Chronic Kidney Disease) Goal: Laboratory Values and Blood Pressure Within Desired Range Outcome: Met Problem: Pain Acute Goal: Optimal Pain Control Outcome: Met Problem: Fall Injury Risk Goal: Absence of Fall and Fall-Related Injury Outcome: Met lan of [facility] - Taylor Sanon RN - 12/14/2018 3:42 AM PDTPt continues to rate pain level high with oxycodone given. Pt requests dilaudid for the pain in the thoracentesis site. Site is C/D/I with no r edness and scant bruising. Bilateral lung sounds crackles. She ambulated the tena this shift . MD notified as pt c/o nausea and said zofran was ineffective. She says phenergan is what w orks for her. Phenergan 1 time dose administered with some relief in symptoms. Zofran given later in shift for repeat nausea. Vital signs stable. 24 hour chart check complete, end of shift review complete. Problem: Pain Acute Goal: Optimal Pain Control Outcome: Ongoing, not progressing Intervention: Prevent or Manage Pain Flowsheets (Taken 12/14/2018 0152) Sensory Stimulation Regulation: music/television provided for stimulation;quiet environment promoted Sleep/Rest Enhancement: awakenings minimized;noise level reduced Intervention: Optimize Psychosocial Wellbeing Flowsheets (Taken 12/14/2018 0152) Supportive Measures: active listening utilized;relaxation techniques promoted;self-care enc ouraged;verbalization of feelings encouraged lan of Jannet Kahn RN - 12/13/2018 5:04 PM PDT Problem: Pain Acute Goal: Optimal Pain Control Outcome: Ongoing, progressing Note: Pt understands when to notify the healthcare team about her pain. Pt states a pain goal 3/1 0 is appropriate for her. Problem: Renal Function Impairment (Chronic Kidney Disease) Goal: Laboratory Values and Blood Pressure Within Desired Range Outcome: Ongoing, progressing Problem: Oral Intake Inadequate (Chronic Kidney Disease) Goal: Optimal Oral Intake Outcome: Ongoing, progressing END OF SHIFT NOTE: Pt has had no events this shift. Dialysis this AM and 1.5L taken off. Medicated X3 today fo r pain. Pt states the zofran is not relieving her nausea. A 1 time order of phenergan was gi ni. No changes from initial assessment. VSS will continue to monitor. End of shift review c omplete. lan of Shannon Tran RN - 12/13/2018 6:47 AM PDTNo acute changes since shift assessment. Patient med icated for nausea x 2 with Zofran with no relief. One time order obtained for Phenergan. Med icated for pain x 2. End of shift audit and 24 hour chart check complete Shannon Martell RN -- Problem: Adult Inpatient Plan of Care Goal: Plan of Care Review Outcome: Ongoing, progressing Plan of care reviewed with patient. All questions and concerns addressed. Problem: Pain Acute Goal: Optimal Pain Control Outcome: Ongoing, progressing Patient is able to verbalize and rate pain on a numeric scale from 0 to 10. Non-pharmacolog ic pain interventions (ex: distraction, music therapy) encouraged. Pain is re-assessed 30 mi nutes to one hour after pain management intervention. lan of Manjula Chen RN - 12/12/2018 6:50 PM PDTPt had dialysis and a thoracentesis (removed 1.5L of fluid), pt tolerated both well. Pt denied nausea but did need to be medicated 2x during shif t. No acute changes throughout shift. End of shift review complete. lan of Manjula Chen RN - 2018 5:00 PM PDT Problem: Adjustment to Illness (Chronic Kidney Disease) Goal: Optimal Coping with Chronic Illness Outcome: Ongoing, progressing Intervention: Support and Optimize Psychosocial Response to Chronic Illness Flowsheets (Taken 12/12/2018 1658) Supportive Measures: active listening utilized;self-care encouraged;self-responsibility pro moted Problem: Hematologic Alteration (Chronic Kidney Disease) Goal: Absence of Anemia Signs/Symptoms Outcome: Ongoing, progressing Intervention: Monitor and Manage Signs/Symptoms of Anemia and Bleeding Flowsheets (Taken 12/12/2018 1658) Environmental Support: calm environment promoted;comfort object encouraged;distractions min imized;environmental consistency promoted lan of Jackie Pizarro RN - 12/12/2018 2:09 PM PDTCare Management Initial Assessment Readmission Risk: HIGH Status Prior to Admission or Illness Arrival From: admitted as an inpatient Lives With: alone Living Arrangements: apartment Caregiver For: no one Patient s Caregiver: other (see comments)(pt is independent) Functional Status: Independent Caregiving Concerns: no Home Accessibility: no concerns Transportation Available: family or friend will provide Able to return to prior living: yes Care Management Concerns Last discharge date: Readmission Within Last 30 Days: no previous admission in last 30 days Is Readmission Diagnosis Related to or Same As: Previous Discharging Facility: Previous Discharge Destination From: PCP: Jonathan Alonso MD Contact Information Family Contact Information: mother Name: Thania Mallory Pager: Fax: DC Needs Assessment Current Outpt/Agency/Support Groups: outpatient hemodialysis (specify) Community Agency Name: [facility] Sau[facility] Anticipated Changes Related to Illness: none Concerns to be Addressed: no discharge needs identified Services Anticipated at Discharge: none Equipment Used at Home: none Equipment Needed after Discharge: none Durable Medical Equipment Provider: Pharmacy/Medication Needs: other (see comments)([facility]) Transportation Needs: car Initial Plan Anticipated Discharge Disposition: home Expected DC Date: yes Steps Taken Toward Discharge: Next Steps: Notes:Met with patient at bedside to discuss discharge plan and needs. Introduced myself an d explained my role in discharge planning. Pt is scheduled for dialysis M/W/F at [facility] in [facility]. Pt gets rides from family and friends but misses dialysis frequently. Pt takes sadia vix daily. Pt has been independent. Pt is on home oxygen. Electronically signed: Jackie Calderón RN 12/12/2018 14:09 lan of [place] - Shannon Martell RN - 12/12/2018 6:45 AM PDTNo acute changes since shift assessment. Medicated for nausea x 1. Patient states pain control is not adequate. Obtained one time order for Ultram 50 mg. Hemodialysis scheduled for 0700; patient notified. Given PRN Ultram x 1. End of shift audit and 24 hour chart check complete Shannon Martell RN -- Problem: Adult Inpatient Plan of Care Goal: Plan of Care Review Outcome: Ongoing, progressing Plan of care reviewed with patient. All questions and concerns addressed. Problem: Pain Acute Goal: Optimal Pain Control Outcome: Ongoing, progressing Patient is able to verbalize and rate pain on a numeric scale from 0 to 10. Non-pharmacolog ic pain interventions (ex: distraction, music therapy) encouraged. Pain is re-assessed 30 mi nutes to one hour after pain management intervention. lan of Care - Leonard Adrian RN - 12/11/2018 2:00 PM PDT Problem: Adult Inpatient Plan of Care Goal: Plan of Care Review Outcome: Ongoing, progressing Flowsheets (Taken 12/11/2018 7458) Plan of Care Reviewed With: patient Note: Discussed hemodialysis, labs, medications, diet, activity, pain management. Goal: Optimal Comfort and Wellbeing Outcome: Ongoing, progressing Intervention: Monitor Pain and Promote Comfort Note: See vital signs flow sheet and MAR for details. documented in [facility] s encounter Plan of Treatment + +------+--------+ + [...] | + +--------+ + + + | ROBERTO BERNAL, | Routin | 12/11/2018 | | Results for this | | ARTERIAL | e | 1:33 AM | | procedure are in the | | | | PDT | | results section. | + +--------+ + + + | POINT OF CARE | STAT | 12/11/2018 | | | | | | 1:17 AM | | | [...] | | n - | | | 10/07/ | | | 2019 | | | [...] R?MRN: | | | | | | [id number] | | | [id number] | | | riteri | | | [...] | | | St. | | | [place] | | | y | | | [...] | | | St. | | | [place] | | | y | | | [...] | | | St. | | | [place] | | | y | | | [...] | | | St | | | [place] | | | y | | | [...] St | | | | | | [place] | | | y | | | [...] | | | St. | | | [place] | | | y | | | [...] | | | St. | | | [place] | | | y H. | | [...] | | | St. | | | [place] | | | y H. | | [...] | | | St. | | | [place] | | | y H. | | [...] | | | St. | | | [place] | | | y H. | | [...] | | | St. | | | [place] | | | y H. | | [...] | | | St. | | | [place] | | | y H. | | [...] | | | status | | | [facility] | | | 10, | | | 2019 | | | [facility] | | | [facility] | | | [place] | | | y H. | | [...] | | | MD | | | Malter Operator | | | al | | [...] | | | [id number] | | | [id number] | | | [id number] | | | [...] + | Billie Gupta MD 12/14/2018 9:54 [facility] | | | [facility] Hemo-Dialysis Procedure note Pt is seen [...] QB 450 AP | | | -200 High Reach Operator 170 Constitutional: pt appears without distress. [...] + + + | Red Blood | 2.95 (L) | 3.7 0 - [...] | | | | | | [address] [facility], | | | | | | [place] [address] | | | | | |Testing performed at [facility], [address], [place] [address] | | | | | | | | | | + + +---- + + + + + | Specimen | + + | Blood | + + + + + + + | Performing | Address | City/State/Zipcode | Phone Number | | Organization | | | | + + + + + | [facility] | [address] | [place] [address] | [phone] | + + + + + Basic [...] | | | | | [place] [address] | | | | + + + + + + + + | Specimen | + + | Blood | + + + + + + + | Performing | Address | City/State/Zipcode | Phone Number | | Organization | | | | + + + + + | [facility] | [address] | [place] [address] | [phone] | + + + + + XR Chest AP Portable (12/13/2018 3:39 PM PDT) + + | Specimen | + + | | + + + + + | Impressions | Performed At | + + + | There is no pneumothorax status post right thoracentesis. | [facility] | | Signed by: Eliza Khan, Minnie Sign Date/Time: 12/13/2018 3:44 PM | | [...] Hospital, | | | | | | [place] [address] | | | | + + + + + + + + | Specimen | + + | Blood | + + + + + + + | Performing | Address | City/State/Zipcode | Phone Number | | Organization | | | | + + + + + | [facility] | [address] | [place] [address] | [phone] | + + + + + [place] [...] 8.6 (H)Comment: Testing | <0.5 mg/dL | [facility] | | | | performed at [facility], [address] | | LABORATORY | | | | [address], | | | | | | [place] [address] | | | | + + + + + + + + | Specimen | + + | Blood | + + + + + + + | Performing | Address | City/State/Zipcode | Phone Number | | Organization | | | | + + + + + | [facility] | [address] | [place] [address] | [phone] | + + + + + Culture, Blood (12/12/2018 5:02 AM PDT) + + + + + + | Component | Value | Ref Range | Performed | Pathologist | | | | | At | Signature | + + + + + + | Special | [facility] | | [facility] | | | Requests | | | LABORATORY | | + + + + + + | Special | Testing performed at | | [facility] | | | Requests | [facility];[address] | | LABORATORY | | | | [address];[place] [address] | | | | + + + + + + | RESULT | NO GROWTH 6 DAYS | | [facility] | | | | | | LABORATORY | | + + + + + + | RESULT | Testing performed at | | [facility] | | | | [facility], [address] | | LABORATORY | | | | [place], [place] | | | | | | [id number]: Testing | | | | | | performed at [facility], [address] | | | [address], [place], [place] | | | | | | [address] | | | | + + + + + + + + | Specimen | + + | Blood - Peripheral | | blood specimen | | (specimen) | + + + + + + + | Performing | Address | City/State/Zipcode | Phone Number | | Organization | | | | + + + + + | [facility] | [address] | [place] [address] | [phone] | + + + + + CBC [...] + + + | Red Blood | 2.72 (L) | 3.70 - 5.10 [...] MPV | 9.8Comment: Testing | fl | [facility] | | | | performed at [facility], [address] | | LABORATORY | | | | [address], | | | | | | [place] [address] | | | | + + + + + + + + | Specimen | + + | Blood | + + + + + + + | Performing | Address | City/State/Zipcode | Phone Number | | Organization | | | | + + + + + | [facility] | [address] | [place] [address] | [phone] | + + + + + Basic [...] | | | | | [place] [address] | | | | + + + + + + + + | Specimen | + + | Blood | + + + + + + + | Performing | Address | City/State/Zipcode | Phone Number | | Organization | | | | + + + + + | [facility] | [address] | [place] [address] | [phone] | + + + + + Basic [...] | | | | | performed at [facility];[address] | | | | | | [facility];[place], [place] | | | | | | [address] | | | | + + + + + + + + | Specimen | + + | Blood | + + + + + + + | Performing | Address | City/State/Zipcode | Phone Number | | Organization | | | | + + + + + | [facility] | [address] | [place] [address] | [phone] | + + + + + Influenza [...] [place];[address] | | | | | [address];[place], [place] | | | | | | [address] | | | | + + + + + + + + | Specimen | + + | | + + + + + + + | Performing | Address | City/State/Zipcode | Phone Number | | Organization | | | | + + + + + | [facility] | [address] | [place] [address] | [phone] | + + + + + FLU SWAB COLLECTION (12/11/2018 3:46 PM PDT) + + + + + + | Component | Value | Ref Range | Performed | Pathologist | | | | | At | Signature | + + + + + + | Collection | SPECIMEN RECEIVED IN | | [facility] | | | | LABComment: Testing | | LABORATORY | | | | performed at [place];[address] | | | | | | [address];[place] | | | | | | [address] | | | | + + + + + + + + | Specimen | + + | Tissue - Entire | | nasopharynx (body | | structure) | + + + + + + + | Performing | Address | City/State/Zipcode | Phone Number | | Organization | | | | + + + + + | [facility] | [address] | [place] [address] | [phone] | + + + + + POC Glucose (12/11/2018 8:31 AM PDT) + + + + + + | Component | Value | Ref Range | Performed | Pathologist | | | | | At | Signature | + + + + + + | Glucose, | 84Comment: Testing | 65 - 99 mg/dL | [facility] | | | POC | performed at [place];[address] | | LABORATORY | | | | [address];[place] | | | | | | [address] | | | | + + + + + + + + | Specimen | + + | | + + + + + + + | Performing | Address | City/State/Zipcode | Phone Number | | Organization | | | | + + + + + | [facility] | [address] | [place] [address] | [phone] | + + + + + ECG [...] [facility] | | | | performed at [place];[address] | | LABORATORY | | | | [address];[place] | | | | | | [address] | | | | + + + + + + + + | Specimen | + + | Blood | + + + + + + + | Performing | Address | City/State/Zipcode | Phone Number | | Organization | | | | + + + + + | [facility] | [address] | [place] [address] | [phone] | + + + + + Basic [...] + + + | K | 6.8 (HH)Comment: RESULT | 3.5 - 4.9 | [facility] | | | | READ BACK BY:ABRIL HUERTA | mmol/L | LABORATORY | | | | M ON [id number] [phone] BY | | | | | | [...] (L)Comment: GFR <60: | >60 | [facility] | | | GFR | CHRONIC KIDNEY [...] | | | | | | MDRD [facility] traceable | | | | | | equation.Testing | | | | | | performed at [place];[facility] | | | | | | [facility];[place], [place] | | | | | | [address] | | | | + + + + + + + + | Specimen | + + | Blood | + + + + + + + | Performing | Address | City/State/Zipcode | Phone Number | | Organization | | | | + + + + + | [facility] | [address] | [place] [address] | [phone] | + + + + + Culture, [...] [facility] | | | Requests | [facility] | LABORATORY | | | | [address];[place] [address] | | | | + + + + + + | RESULT | NO GROWTH 6 DAYS | | [facility] | | | | | | LABORATORY | | + + + + + + | RESULT | Testing performed at | | [facility] | | | | [facility], [address] | | LABORATORY | | | | [place] | | | | | | [id number]: Testing | | | | | | performed at [facility], [address] | | | | | | [address], [place], [place] | | | | | | [address] | | | | + + + + + + + + | Specimen | + + | Blood - Peripheral | | blood specimen | | (specimen) | + + + + + + + | Performing | Address | City/State/Zipcode | Phone Number | | Organization | | | | + + + + + | [facility] | [address] | [place] [address] | [phone] | + + + + + CT [...] LABORATORY | | | | performed at [place];[address] | | | | | | [address];[place] | | | | | | [address] | | | | + + + + + + + + | Specimen | + + | | + + + + + + + | Performing | Address | City/State/Zipcode | Phone Number | | Organization | | | | + + + + + | [facility] | [address] | [place] [address] | [phone] | + + + + + Lactic Acid (12/11/2018 1:04 AM PDT) + + + + + + | Component | Value | Ref Range | Performed | Pathologist | | | | | At | Signature | + + + + + + | Lactate, | 1.2Comment: Testing | 0.4 - 2.0 | [facility] | | | Serum | performed at [place];[address] | mmol/L | LABORATORY | | | | [address];[place] | | | | | | [address] | | | | + + + + + + + + | Specimen | + + | Blood | + + + + + + + | Performing | Address | City/State/Zipcode | Phone Number | | Organization | | | | + + + + + | [facility] | [address] | [place] [address] | [phone] | + + + + + Lactic Acid (12/10/2018 11:44 PM PDT) + + + + + + | Component | Value | Ref Range | Performed | Pathologist | | | | | At | Signature | + + + + + + | Lactate, | 0.8Comment: Testing | 0.4 - 2.0 | [facility] | | | Serum | performed at [place];[address] | mmol/L | LABORATORY | | | | [address];[place], [place] | | | | | | [address] | | | | + + + + + + + + | Specimen | + + | Blood | + + + + + + + | Performing | Address | City/State/Zipcode | Phone Number | | Organization | | | | + + + + + | [facility] | [address] | [place] [address] | [phone] | + + + + + Culture, Blood (12/10/2018 11:43 PM PDT) + + + + + + | Component | Value | Ref Range | Performed | Pathologist | | | | | At | Signature | + + + + + + | Gram Stain | GRAM POSITIVE COCCI IN | | [facility] | | | Result | CLUSTERSSEEN IN [...] LABORATORY | | | | BY:Brigitte CARTER 6R @ 1855 | | | | | [...] | Testing performed at | | [facility] | | | | [facility], [address] [facility] [address] | | LABORATORY | | | | [facility], [place], [place] | | | | | | [id number]: Testing | | | | | | performed at [facility], [address] | | [address] [facility] [address], | | | | | | [place] [address] | | | | + + + + + + + + | Specimen | + + | Blood - Swab of line | | insertion site | | (specimen) | + + + + + + + | Performing | Address | City/State/Zipcode | Phone Number | | Organization | | | | + + + + + | [facility] | [address] | [place] [address] | [phone] | + + + + + XR [...] | | Signed by: Eliza Lewis, [place] Date/Time: 12/10/2018 | | | 11:50 PM [...] at | | | | | | [place];[address] [facility] | | | | | | [address]vd;[place] [address] | | | | + + + + + + + + | Specimen | + + | Blood | + + + + + + + | Performing | Address | City/State/Zipcode | Phone Number | | Organization | | | | + + + + + | [facility] | [address] | [place] [address] | [phone] | + + + + + Protime [...] [place];[address] | | | | | | [address];[place], [place] | | | | | | [address] | | | | + + + + + + + + | Specimen | + + | Blood | + + + + + + + | Performing | Address | City/State/Zipcode | Phone Number | | Organization | | | | + + + + + | [facility] | [address] | [place] [address] | [phone] | + + + + + CBC [...] + + + | Red Blood | 2.88 (L) | 3.70 - 5.10 [...] | | | | | | at [facility];[address];[place] [address] | | | | | |NORMAL PLT MORPH | | | | | |Testing performed at [facility];[address] [place] [address];[place] [address] | | | | | | | | | | + + + + + + + + | Specimen | + + | Blood | + + + + + + + | Performing | Address | City/State/Zipcode | Phone Number | | Organization | | | | + + + + + | [facility] | [address] | [place] [address] | [phone] | + + + + + Phosphorus (12/10/2018 11:02 PM PDT) + + + + + + | Component | Value | Ref Range | Performed | Pathologist | | | | | At | Signature | + + + + + + | Phosphorus | 8.9 (H)Comment: Testing | 2.3 - 4.8 mg/dL | [facility] | | | | performed at [facility];[address] | | LABORATORY | | | | [address];[place] | | | | | | [address] | | | | + + + + + + + + | Specimen | + + | Blood | + + + + + + + | Performing | Address | City/State/Zipcode | Phone Number | | Organization | | | | + + + + + | [facility] | [address] | [place] [address] | [phone] | + + + + + Magnesium (12/10/2018 11:02 PM PDT) + + + + + + | Component | Value | Ref Range | Performed | Pathologist | | | | | At | Signature | + + + + + + | Magnesium | 2.2Comment: Testing | 1.7 - 2.4 mg/dL | [facility] | | | | performed at [facility];[address] | | LABORATORY | | | | [facility];[place], [place] | | | | | | [address] | | | | + + + + + + + + | Specimen | + + | Blood | + + + + + + + | Performing | Address | City/State/Zipcode | Phone Number | | Organization | | | | + + + + + | [facility] | [address] | [place] [address] | [phone] | + + + + + Comprehensive [...] BY TD | | | | | |ANDIE RN IN ED AT 0017 BY TD [...] 22 | 10 - 65 U/L | [facility] | | | | | | LABORATORY | | + + + + + + | Estimated | 3 (L)Comment: GFR <60: | >60 | [facility] | | | GFR | CHRONIC KIDNEY [...] | | | | | performed at [place];[address] | | | | | | [facility];[place], [place] | | | | | | [address] | | | | + + + + + + + + | Specimen | + + | Blood | + + + + + + + | Performing | Address | City/State/Zipcode | Phone Number | | Organization | | | | + + + + + | [facility] | [address] | [place] [address] | [phone] | + + + + + ECG [...] | | | | | ONLY, -COMPUTER (805), | | | | | | editor [...] + | Diagnosis | + + | Sepsis, due to [...] Starting 12/11/18 | | | at 0937, For BP [...] | | | | | | information. Figueroa prior to use., | | | | | | | | | | | | | + +-------+ +---------+---+ + +---+---+ | | | +---+---+ + +-------+ + +---+---+ | insulin regular (humuLIN R, | Given | 12/12/19 | 10 Units | | | | novoLIN R) injection 10 Units | | 19 8:33 | | | [...] PRN, Hypotension, | | | Starting [facility] 12/11/18 at 0937, | | | [...] - PRN, Hypotension, | | | Starting [facility] 12/12/18 at 0734, | | | Treatment [...]
--- OUTSIDE RECORDS SUMMARY | ~2019-12-25 | XMS | Encounter Summary ---
Demographics + + + | Address | [address] | | | [place] [address] | + + + | Home Phone [...] | [facility] | | | and [place] | + + + | Organization | [facility] | | [...] Providers + +------+ + | Care White Kid Buffer Name | Role | Phone | + +------+ + | Jonathan Alonso MD | PCP | | + +------+ + Reason for Visit + + + | Reason | Comments | + + + | Medical Problem | needs dialysis, transfer from [facility], labs done, not available | | (Major) [...] + + | 07/13/ | Hospital | [facility] | Luz Zuniga DO [address] | Shortness of breath | | 2019 - | Encounter | [facility] [address] | (Primary Dx); ESRD | | | | [address] | [place] [address] | on dialysis ([facility]); | | 07/17/ | | [place], [place] | [phone] | Acute pulmonary | | 2020 | | [address] | | edema ([facility]); At high | | | | [phone] | Sotero Reinoso MD | risk for | | | | | [address] | electrolyte | | | | | [place] | imbalance; Chronic | | | | | [address] | 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 | | | | | AlexandruJeronimo nicholson | failure (HCC); | | | | | MD Kodi [address] | Noncompliance; | | | | | [address] [place], [place] | Pleural effusion, | | | | | [address] | not elsewhere | | | | | | classified; Acute on | | | | | Loreta Ingram MD | chronic respiratory | | | | | [address] | failure with | | | | | [place] [address] | hypoxia (HCC); Acute | | | | | [phone] | on chronic combined | | | [...] Medical Problem (Major) (needs dialysis, transfer from [facility], labs done, not available there today.) Hospital Course: Briefly,24-year-old female with significant past medical history ofHSP, end-stage renal disease on hemodialysis occasionally noncompliant (MWF Dr. Anguiano) complicated with va scular access thrombosis status post stentpreviously on Plavix, essential hypertension, ch ronic combined congestive heart failure, severe pulmonary hypertension, cor pulmonale, moder ate MR/severe TR regurgitation and other comorbidities, who was discharged from [facility] on 2019 with a chief complaint of acute on chronic combined heart failure exacerbation/volume o verload secondary to missed dialysis treatment who represents to [facility] on 07/13 via EMS for raul rtness of breath secondary to missed hemodialysis session. Patient was admitted to regular medical floor with volume overload from missed hemodialysis session and acute on chronic combined congestive heart failure exacerbation secondary to me dical noncompliance. The patient underwent hemodialysis kindly see cardiac nurse practitioner note for further details. The patient did [...] The patient is to follow-up with her cardiac nurse practitioner arash mccormack 1 to 2 weeks after discharge. The patient is to follow-up with her salvage inspector wood parts (Dr. Mahmood ) within 1 to 2 [...] Follow up: Jonathan Alonso MD [address] [place] [address] Schedule an appointment as soon as possible [...] ncounter Discharge Instructions Instructions Benjamínrosalinejojo Adina Brigitte, Plumbing Installer - 07/18/2019Formatting of this note m ight [...] the veins,fluid leaks out into the tissues. [place] then causesthat fluid to move to those [...] more tired than usual Date Last Reviewed: 07/04/201719996009-6872 [employer]. [address] [place] [address], [place] [address]. All righ ts reserved. This information is [...] the fistula or graft Date Last Reviewed: 12/05/201519998899-5915 [employer]. [address] [place] [address]. All righ ts reserved. This information is [...] | | | renal disease) ([facility]) | protocol | | | | | [...] follow-up with Cardiology as recommended with her salvage inspector wood parts Dr. Mahmood. Magnet provide d that displays [...] on a Monday, Monday, Monday schedule at [facility] using left upper extremity AV fistula. She used to see Dr. Trent Camp but has switched to Dr. Anguiano. She also has combined diastolic/systolic congestive heart failure and was recently hospital ized at [facility] with hypervolemia and right pleural effusion (12/10/18-12/14/18). She has not been adherent to her dialysis prescription and is admitted having missed 2 dial ysis sessions last week and a short dialysis treatment on Monday. She initially went to [facility] complaining of shortness of breath and ches t pain and indicated that she was 30 pounds over her dry weight. From chart review her dry weight is 66.5 kg and she weighed in at 80.6 kg in the hospital o n admission. She was transferred to [facility] for urgent dialysis. She received urgent dialysis [...] was completed later after rounds. Dictation software, [employer] End[employer], was used which may contain error for [...] at request of patient via nurse and development technician Naresh to address pt struggle with losses. [...] on a Monday, Monday, Monday schedule at [facility] using left upper extremity AV fistula. She used to see Dr. Trent Camp but has switched to Dr. Anguiano. She also has combined diastolic/systolic congestive heart failure and was recently hospital ized at [facility] with hypervolemia and right pleural effusion (12/10/18-12/14/18). She has not been adherent to her dialysis prescription and is admitted having missed 2 dial ysis sessions last week and a short dialysis treatment on Monday. She initially went to [facility] complaining of shortness of breath and ches t pain and indicated that she was 30 pounds over her dry weight. From chart review her dry weight is 66.5 kg and she weighed in at 80.6 kg in the hospital o n admission. She was transferred to [facility] for urgent dialysis. She received urgent dialysis [...] was completed later after rounds. Dictation software, Sport Endurance, was used which may contain error for [...] Tejeda MD - 07/17/2019 12:53 PM PDT [facility] Adult Hospitalist Progress Note Hospital Day: [...] and other comorbidities, who was discharged from [facility] on 020 with a chief complaint of acute on chronic combined heart failure exacerbation/volume ov erload secondary to missed dialysis treatment who represents to [facility] on 07/13 via EMS for shor tness [...] -Patient will require follow-up with her established salvage inspector wood parts (Dr. Mahmood) Essential hypertension: -Home regimen: Coreg [...] on a Monday, Monday, Monday schedule at [facility] using left upper extremity AV fistula. She used to see Dr. Trent Camp but has switched to Dr. Anguiano. She also has combined diastolic/systolic congestive heart failure and was recently hospital ized at [facility] with hypervolemia and right pleural effusion (12/10/18-12/14/18). She has not been adherent to her dialysis prescription and is admitted having missed 2 dial ysis sessions last week and a short dialysis treatment on Monday. She initially went to [facility] complaining of shortness of breath and ches t pain and indicated that she was 30 pounds over her dry weight. From chart review her dry weight is 66.5 kg and she weighed in at 80.6 kg in the hospital o n admission. She was transferred to [facility] for urgent dialysis. She received urgent dialysis [...] was completed later after rounds. Dictation software, Sport Endurance, was used which may contain error for [...] Tejeda MD - 07/16/2019 8:02 AM PDT [facility] Adult Hospitalist Progress Note Hospital Day: 2 Patient Summary: Briefly, 24-year-old female with significant past medical history of HSP, end-stage renal d isease on hemodialysis occasionally noncompliant ([facility] Dr. Anguiano) complicated with vasc ular access thrombosis status post stent previously on Plavix, essential hypertension, chron ic combined congestive heart failure, severe pulmonary hypertension, cor pulmonale, moderate MR/severe TR regurgitation and other comorbidities, who was discharged from [facility] on 0 with a chief complaint of acute on chronic combined heart failure exacerbation/volume over load secondary to missed dialysis treatment who represents to [facility] on 07/13 via EMS for shortn ess [...] -Patient will require follow-up with her established salvage inspector wood parts (Dr. Mahmood) -We will also order thoracentesis [...] on a Monday, Monday, Monday schedule at [facility] using left upper extremity AV fistula. She used to see Dr. Trent Camp but has switched to Dr. Anguiano. She also has combined diastolic/systolic congestive heart failure and was recently hospital ized at [facility] with hypervolemia and right pleural effusion (12/10/18-12/14/18). She has not been adherent to her dialysis prescription and is admitted having missed 2 dial ysis sessions last week and a short dialysis treatment on Monday. She initially went to [facility] complaining of shortness of breath and ches t pain and indicated that she was 30 pounds over her dry weight. From chart review her dry weight is 66.5 kg and she weighed in at 80.6 kg in the hospital o n admission. She was transferred to [facility] for urgent dialysis. She received urgent dialysis [...] was completed later after rounds. Dictation software, Sport Endurance, was used which may contain error for [...] who was admitted as a transfer from [facility] in [facility] due to shortness of breath. She had [...] Medications Current Facilty-Administered PRN Medications [facility] in [facility] Medication Dose Route Frequency Provider Last Rate [...] Confirmed by MUSE READ ONLY, -COMPUTER ([id number]), material expeditor Jaymie Thakur ([id number]) on 07/15/2019 3:08 :34 [...] and other comorbidities, who was discharged from [facility] on with a chief complaint of acute on chronic combined heart failure exacerbation/volume ov erload secondary to missed dialysis treatment who represents to [facility] on 07/13 via EMS for shor tness [...] worsen at which point she presented to [place] ER for further evaluation and management. In the ER, the patient was found to be hypoxic saturating 74% on room air pat ient was transferred to [facility] ER for higher level of care as [facility] does not hav e hemodialysis, available at this time. In [facility], hemodynamically stable. O2 saturation 95% on 2 L/min. Laboratory results r geovany. ER physician contacted and spoke with on-call cardiac nurse practitioner. Hospitalist was ronald booker for further inpatient [...] bacteria 12/12/2018 Clotted dialysis access ([facility]) 2014 Congestive heart failure (HCC) ESRD (end stage renal disease) (HCC) HSP (Henoch-Schonlein purpura) nephritis (HCC) 1988 Hypertension Pericardial effusion without cardiac tamponade 11/07/2018 PSH: Past Surgical History: Procedure Laterality Date ABDOMEN SURGERY AV FISTULA REPAIR 02/24/2014 LEFT Radical Cephalic Fistula Creation; Laterality: Left; Surgeon: Blake Chavarria MD ; Location: [facility] MAIN OR AV FISTULA REPAIR Left 03/07/2014 Procedure: AV FISTULA - GRAFT REPAIR/REVISION; Surgeon: Rik Simon MD; Location: [facility] OR; Service: Vascular; Laterality: Left; biopsy of kidney age 10 DIALYSIS FISTULA CREATION 04/08/2014 Procedure: DIALYSIS CATHETER - INSERTION; Surgeon: Rik Simon MD; Location: [facility] OR ; Service: Vascular; Laterality: N/A; tunneled catheter.br hemodialysis catheter KIDNEY BIOPSY Left 2003 OTHER SURGICAL HISTORY LAPAROSCOPIC PERITONEAL DIALYSIS CATHETER INSERTION - x2 OTHER SURGICAL HISTORY Right 07/2013 LAPAROSCOPIC PERITONEAL DIALYSIS CATHETER INSERTION - current dialysis access MWF dialysis OTHER SURGICAL HISTORY Left 06/24/2014 SUPERFICIALIZATION OF AV FISTULA - Procedure: AV FISTULA - SUPERFICIALIZATION; Surgeon: Emanuel Simon MD; Location: [facility] MAIN OR; Service: Vascular; Laterality: Left; OTHER SURGICAL HISTORY Left 04/08/2014 AV FISTULA PLACEMENT - Procedure: AV FISTULA; Surgeon: Rik Simon MD; Location: [facility]; Service: Vascular; Laterality: Left; cephalic OTHER SURGICAL HISTORY Left 03/07/2014 DECLOT GRAFT - Procedure: GRAFT - DECLOT; Surgeon: Rik Simon MD; Location: [facility] OR ; Service: Vascular; Laterality: [...] 9:02 PM PDTAssociated Order(s): PHONE CONSULT - [facility] [id number] LOS: 0 days CHIEF COMPLAINT: I am heavy HISTORY OF PRESENT ILLNESS: Dara Weldon is a 24 y.o. woman with oliguric ESRD who follows up with Dr. Jonathan Alonso MD as primary care provider. 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 She is historically non adherent to dialysis/dietary fluid/K/Po4 restriction. She is normally dialyzed on a Monday, Monday, Monday schedule at [facility] using left upper extremity AV fistula. She used to see Dr. Trent Camp but has switched to Dr. Anguiano. She also has combined diastolic/systolic congestive heart failure and has had recurrent hos pitalizations at [facility] with hypervolemia and right pleural [...] treatment on Monday. She initially went to [facility] complaining of shortness of breath and c hest pain and indicated that she was 30 pounds over her dry weight. From chart review her dry weight is 66.5 kg and she weighed in at 80.6 kg in the hospital o n admission. She was transferred to [facility] for urgent dialysis. CXR done at [facility] had shown right pleural effusion and [...] was completed later after rounds. Dictation software, [employer] Endurance, was used which may contain error for [...] limi wilmer to . [facility] Nadia Luz, - 07/14/2019 4:05 PM PDTFormatting of this note might be different from the or iginal. [facility] History of Present Illness Patient Identification Dara Weldon is a 24 y.o. female. Patient information was obtained from patient History/Exam limitations: none. Patient presented to the Emergency Department by: Ambulance Chief Complaint Chief Complaint Patient presents with Medical Problem (Major) needs dialysis, transfer from [facility], labs done, not available there today. Patient [...] NC. Pt initially presenting to ED in [place] where they foun d her to be [...] Surgeon: Blake Chavarria MD ; Location: [facility] MAIN OR AV FISTULA REPAIR Left 03/07/2014 Procedure: AV FISTULA - GRAFT REPAIR/REVISION; Surgeon: Rik Simon MD; Location: [facility] IN OR; Service: Vascular; Laterality: Left; biopsy of kidney age 10 DIALYSIS FISTULA CREATION 04/08/2014 Procedure: DIALYSIS CATHETER - INSERTION; Surgeon: Rik Simon MD; Location: [facility] MAIN OR ; Service: Vascular; Laterality: N/A; tunneled catheter.br hemodialysis catheter KIDNEY BIOPSY Left 2003 OTHER SURGICAL HISTORY LAPAROSCOPIC PERITONEAL DIALYSIS CATHETER INSERTION - x2 OTHER SURGICAL HISTORY Right 07/2013 LAPAROSCOPIC PERITONEAL DIALYSIS CATHETER INSERTION - current dialysis access MWF dialysis OTHER SURGICAL HISTORY Left 06/24/2014 SUPERFICIALIZATION OF AV FISTULA - Procedure: AV FISTULA - SUPERFICIALIZATION; Surgeon: Emanuel Simon MD; Location: [facility] MAIN OR; Service: Vascular; Laterality: Left; OTHER SURGICAL HISTORY Left 04/08/2014 AV FISTULA PLACEMENT - Procedure: AV FISTULA; Surgeon: Rik Simon MD; Location: [facility] OR; Service: Vascular; Laterality: Left; cephalic OTHER SURGICAL HISTORY Left 03/07/2014 DECLOT GRAFT - Procedure: GRAFT - DECLOT; Surgeon: Rik Simon MD; Location: [facility] MAIN OR ; Service: Vascular; Laterality: [...] file Gets together: Not on file Attends uatsdin service: Not on file Active member of [...] file Social History Narrative She lives in [facility]. She does not work. [...] 93-95% on 4L NC. Her labwork at [place] showed K of 5.2. No peaked T waves on rhythm strip. Since it has only been 4 hours since most recen t labs, will hold off on any repeat. Will discuss with nephrology airport traffic controller [facility]. Medical Decision Making as of Jul 13 1740 Sun July 14, 2019 1620 Discussed with cardiac nurse practitioner Dr. Duarte. Will plan on dialyzing pt [...] [786.05.ICD-9-CM] Clinical impression: ESRD on dialysis (HCC) [492112] Clinical impression: Acute pulmonary edema (HCC) [198972] Admitting provider: PHYLLIS HOSPITALIST [[id number]] Expected patient class: Inpatient [101] Level of service: Medical Telemetry: Telemetry Discharge Medications: ED Prescriptions None Dictation software, Sport Endurance, used which may contain error for similar sounding words even af ter review. Personal communication requested for any clarification. DO Luz Callaway DO 07/14/191740 Savanna Arnold RN - 0 07/14/2019 3:26 PM PDTBed: [id number] Expected date: Expected time: Means of arrival: Comments: Medic 5 from [facility], [place] 3:2 6 PM PDTdocumented in this encounter Miscellaneous Notes Plan of [place] - Adina Contreras, Plumbing Installer - 07/18/2019 5:15 PM PDTDiscussed discharge information, including medications, follow up appointment and plan of care. Patien t verbalized understanding of instructions. Patient discharged with all belongs and prescrip tions. lan of Care - Adina Contreras, Plumbing Installer - 07/18/2019 9:51 AM PDT Problem: Adult [...] of shift chart check complete. lan of [facility] Adina Contreras, Plumbing Installer - 07/17/19 20 2:51 PM PDT Problem: Adult Inpatient Plan of Care Goal: Optimal Comfort and Wellbeing Outcome: Ongoing, progressing Problem: Fluid Volume Excess Goal: Fluid Balance Outcome: Ongoing, progressing Patient accepted conference with Geochemical Manager to discuss her recent loss and concerns. [...] R?MRN: | | | | | | [id number] | | | [id number] | | | riteri | | | [...] | | | St. | | | [place] | | | y | | | [...] | | | St. | | | [place] | | | y | | | [...] | | | St. | | | [place] | | | y | | | [...] | | | gs | | | [place] | | | ED | | | Dispar | | | ity | | | Measur | | | e - | | | [place] | | | has | | | [...] | | | s. | | | [place] | | | | | | Health [...] | | | By: | | | [place] | | | | | | Health [...] | | | St. | | | [place] | | | y | | | [...] | | | St. | | | [place] | | | y H. | | [...] | | | St. | | | [place] | | | y H. | | [...] | | | St. | | | [place] | | | y H. | | [...] | | | St. | | | [place] | | | y H. | | [...] | | | St. | | | [place] | | | y H. | | [...] | | | St. | | | [place] | | | y H. | | [...] | | | [place] | | | Reciprocating Drill Operator | | | al | | [...] | | | [place] | | | Reciprocating Drill Operator | | | al | | [...] | | | [place] | | | Reciprocating Drill Operator | | | al | | [...] | | | MD | | | Reciprocating Drill Operator | | | al | | [...] Testing | 1.7 - 2.4 mg/dL | [facility] | | | | performed at [facility];[address] | | LABORATORY | | | | [address];[place], [place] | | | | | | [address] | | | | + + + + + + + + | Specimen | + + | | + + + + + + + | Performing | Address | City/State/Zipcode | Phone Number | | Organization | | | | + + + + + | [facility] | [address] | [place] [address] | [phone] | + + + + + CBC [...] | | | Absolute | performed at [facility];[address] | K/uL | LABORATORY | | | | [address];[place] | | | | | | [address] | | | | + + + + + + + + | Specimen | + + | | + + + + + + + | Performing | Address | City/State/Zipcode | Phone Number | | Organization | | | | + + + + + | [facility] | [address] | [place] [address] | [phone] | + + + + + Renal [...] 11 (L)Comment: GFR <60: | >60 | [facility] | | | GFR | CHRONIC [...] | | | | performed at [facility];[address] | | | | | | [facility];[place], [place] | | | | | | [address] | | | | + + + + + + + + | Specimen | + + | Blood | + + + + + + + | Performing | Address | City/State/Zipcode | Phone Number | | Organization | | | | + + + + + | [facility] | [address] | [place] [address] | [phone] | + + + + + ECHO [...] | | | Absolute | performed at [facility], [address] | K/uL | LABORATORY | | | | [facility], | | | | | | [place] [address] | | | | + + + + + + + + | Specimen | + + | Blood | + + + + + + + | Performing | Address | City/State/Zipcode | Phone Number | | Organization | | | | + + + + + | [facility] | [address] | [place] [address] | [phone] | + + + + + Magnesium (07/17/2019 4:59 AM PDT) + + + + + + | Component | Value | Ref Range | Performed | Pathologist | | | | | At | Signature | + + + + + + | Magnesium | 2.5 (H)Comment: Testing | 1.7 - 2.4 mg/dL | [facility] | | | | performed at [facility], [address] | | LABORATORY | | | | [address], | | | | | | [place] [address] | | | | + + + + + + + + | Specimen | + + | Blood | + + + + + + + | Performing | Address | City/State/Zipcode | Phone Number | | Organization | | | | + + + + + | [facility] | [address] | [place] [address] | [phone] | + + + + + Phosphorus (07/17/2019 4:59 AM PDT) + + + + + + | Component | Value | Ref Range | Performed | Pathologist | | | | | At | Signature | + + + + + + | Phosphorus | 8.4 (H)Comment: Testing | 2.3 - 4.8 mg/dL | [facility] | | | | performed at [facility], [address] | | LABORATORY | | | | [address], | | | | | | [place] [address] | | | | + + + + + + + + | Specimen | + + | Blood | + + + + + + + | Performing | Address | City/State/Zipcode | Phone Number | | Organization | | | | + + + + + | [facility] | [address] | [place] [address] | [phone] | + + + + + Renal [...] 8 (L)Comment: GFR <60: | >60 | [facility] | | | GFR | CHRONIC [...] | | | | performed at [facility], [address] | | | | | | [facility], | | | | | | [place] [address] | | | | + + + + + + + + | Specimen | + + | Blood | + + + + + + + | Performing | Address | City/State/Zipcode | Phone Number | | Organization | | | | + + + + + | [facility] | [address] | [place] [address] | [phone] | + + + + + Troponin I (07/16/2019 2:57 PM PDT) + + + + + + | Component | Value | Ref Range | Performed | Pathologist | | | | | At | Signature | + + + + + + | Troponin I | 0.081 (H)Comment: 0.04 | 0.00 - 0.04 | [facility] | | | | ng/mL or [...] | | | [facility];[address] [facility] | | | | | | [address];[place] [address] | | | | + + + + + + + + | Specimen | + + | Blood | + + + + + + + | Performing | Address | City/State/Zipcode | Phone Number | | Organization | | | | + + + + + | [facility] | [address] | [place] [address] | [phone] | + + + + + XR [...] pleural cavity was punctured with a 5 Filipino | | | thoracentesis catheter. A total [...] | | | | | | | [place], | | | | | | [...] [place]; | | | | | | Dent: Helen | | | | | | [...] | | | | | performed at [employer], | | | | | | [address], [address], | | | | | | [facility] [address] | | | | + + + + + + + + | Specimen | + + | Body Fluid | + + + + + + + | Performing | Address | City/State/Zipcode | Phone Number | | Organization | | | | + + + + + | [facility] | [address] | [place] [address] | [phone] | + + + + + Protein, [...] | | | | | | | [place], | | | | | | [place] V. Reference | | | | | [...] | | | | | | Rotk[place]; Dent: | | | | | | September [...] | | | | | [place] [address] | | | | + + + + + + + + | Specimen | + + | Body Fluid | + + + + + + + | Performing | Address | City/State/Zipcode | Phone Number | | Organization | | | | + + + + + | [facility] | [address] | [place] [address] | [phone] | + + + + + Lactate [...] | | | | | | | [place], | | | | | | [place] V. Reference | | | | | [...] [place]; | | | | | | Dent: September | | | | | | [...] | | | | | performed at [facility], | | | | | | [address], [address], | | | | | | [facility] [address] | | | | + + + + + + + + | Specimen | + + | Body Fluid | + + + + + + + | Performing | Address | City/State/Zipcode | Phone Number | | Organization | | | | + + + + + | [facility] | [address] | [place] [address] | [phone] | + + + + + Cell [...] | | Counted | performed at [facility];[address] | | LABORATORY | | | | [address];[place] | | | | | | [address] | | | | + + + + + + + + | Specimen | + + | Body Fluid | + + + + + + + | Performing | Address | City/State/Zipcode | Phone Number | | Organization | | | | + + + + + | [facility] | [address] | [place] [address] | [phone] | + + + + + Protime INR (07/16/2019 10:58 AM PDT) + + + + + + | Component | Value | Ref Range | Performed | Pathologist | | | | | At | Signature | + + + + + + | INR | 1.2Comment: REFERENCE | | [facility] | | | | RANGE:0.9 - [...] | | | | performed at [facility];[address] | | | | | | [facility];[place] | | | | | | [address] | | | | + + + + + + + + | Specimen | + + | Blood | + + + + + + + | Performing | Address | City/State/Zipcode | Phone Number | | Organization | | | | + + + + + | [facility] | [address] | [place] [address] | [phone] | + + + + + Lactate [...] | | | | performed at [facility];[address] | | LABORATORY | | | | [address];[place] | | | | | | [address] | | | | + + + + + + + + | Specimen | + + | | + + + + + + + | Performing | Address | City/State/Zipcode | Phone Number | | Organization | | | | + + + + + | [facility] | [address] | [place] [address] | [phone] | + + + + + Hepatic [...] [facility] | | | | performed at [facility];[address] | | LABORATORY | | | | [address];[place] | | | | | | [address] | | | | + + + + + + + + | Specimen | + + | | + + + + + + + | Performing | Address | City/State/Zipcode | Phone Number | | Organization | | | | + + + + + | [facility] | [address] | [place] [address] | [phone] | + + + + + Troponin I (07/16/2019 9:26 AM PDT) + + + + + + | Component | Value | Ref Range | Performed | Pathologist | | | | | At | Signature | + + + + + + | Troponin I | 0.065 (H)Comment: 0.04 | 0.00 - 0.04 | [facility] | | | | ng/mL or [...] | | | [facility];[address] [place] [address] | | | | | | Blvd;[place] [address] | | | | + + + + + + + + | Specimen | + + | Blood | + + + + + + + | Performing | Address | City/State/Zipcode | Phone Number | | Organization | | | | + + + + + | [facility] | [address] | [place] [address] | [phone] | + + + + + XR [...] | | | | performed at [facility], [address] | | LABORATORY | | | | [address], | | | | | | [place] [address] | | | | + + + + + + + + | Specimen | + + | | + + + + + + + | Performing | Address | City/State/Zipcode | Phone Number | | Organization | | | | + + + + + | [facility] | [address] [facility] | [place] [address] | [phone] | + + + + + CBC [...] | | | Absolute | performed at [facility], [address] | K/uL | LABORATORY | | | | [address], | | | | | | [place] [address] | | | | + + + + + + + + | Specimen | + + | | + + + + + + + | Performing | Address | City/State/Zipcode | Phone Number | | Organization | | | | + + + + + | [facility] | [address] | [place] [address] | [phone] | + + + + + Renal [...] | | | | performed at [facility], [address] | | | | | | [facility], | | | | | | [place], [place] [address] | | | | + + + + + + + + | Specimen | + + | Blood | + + + + + + + | Performing | Address | City/State/Zipcode | Phone Number | | Organization | | | | + + + + + | [facility] | [address] | [place] [address] | [phone] | + + + + + Hepatitis [...] | | Surface Ag | performed at [facility], | | LABORATORY | | | | [address] [address], | | | | | | [facility] [address] | | | | + + + + + + + + | Specimen | + + | Blood | + + + + + + + | Performing | Address | City/State/Zipcode | Phone Number | | Organization | | | | + + + + + | [facility] | [address] | [place] [address] | [phone] | + + + + + ECG [...] | | | | | ONLY, -COMPUTER (306), | | | | | | material expeditor Jaymie Thakur | | | | | [...] | 1 tablet | | | | xjhvfjdhhy-uzojbecwszsaz-ylojwnnm | | 20 1:51 | | | [...] PDT | | | | | ONCE, [facility] 07/17/19 at 0830, For 1 | | [...]
--- OUTSIDE RECORDS SUMMARY | ~2019-12-25 | XMS | Encounter Summary ---
Demographics + + + | Address | [address] | | | [place] [address] | + + + | Home Phone [...] | Author | [facility] | | | and [place] | + + + | Organization | [facility] | | | and [...] + +------+ + | Care Retail Sales Merchandiser Development Name | Role | Phone | [...] + + | 11/15/ | Telephone | [facility] | George Torres RN | Medication Problem | | 2019 | | [address] | | ([address] O[address]) | | | | [place] | | | | | | [address] | | | | | | [phone] | | | +--------+ + + + [...] 2 from provider. [facility] by George Torres RN at 11/15/2018 3:50 PM PDTdocumented in this encounter Plan of Treatment Not on filedocumented as of this encounter Visit Diagnoses Not on filedocumented in this encounter"
--- OUTSIDE RECORDS SUMMARY | ~2019-12-25 | XMS | Encounter Summary ---
Demographics + + + | Address | [address] | | | [place] [address] | + + + | Home Phone [...] + + | 08/31/ | Hospital | [facility] | Conversion | ESRD (end stage | | 2016 | Encounter | CENTER CV INTRA OP | Transaction, | renal disease) (HCC) | | | | [address] | Provider Unknown | | | | | [place], [place] | [phone] | | | | | [address] | | | | | | [phone] | Doyle Diaz MD | | | | | | [address] | | | | | | [place], [place] | | | | | | [address] | | | | | | | [...] documented as of this encounter H&P Notes Doyle Diaz MD - 09/01/2015 9:00 AM PDT H&P by Doyle Diaz MD at 09/01/15899 Author: Doyle Diaz MD Service: Interventional Radiology Author Type: Physician Filed: 09/01/15901 Date of Service: 09/01/15899 Status: Signed Svp: Doyle Diaz MD (Physician) Interventional Radiology H&P Patient Name: Dara Weldon Date of : 1995 History of Present Illness: Patient is a 20 y.o. female with history of ESRD who presents with difficulty with cannulat ion of AVF during HD. Fistulagram last performed on 08/13/2015 and angioplasty of venous out flow and juxta-anastomotic outflow performed. Last HD yesterday without issues. Hospital Problem List: Patient Active Problem List Diagnosis HSP (Henoch Schonlein purpura) ([facility]) ESRD on hemodialysis ([facility]) Review of Systems: Negative except HPI Code Status: Prior Past Medical History: Past Medical History Diagnosis Date HSP (Henoch-Schonlein purpura) nephritis Hypertension Clotted dialysis access ([facility]) 2014 ESRD (end stage renal disease) ([facility]) Anemia Past Surgical History: Past Surgical History Procedure Laterality Date Av fistula placement Renal biopsy Laparoscopic peritoneal dialysis catheter insertion x2 Abdominal surgery Av fistula repair Left 03/07/2014 Procedure: AV FISTULA - GRAFT REPAIR/REVISION; Surgeon: Rik Simon MD; Location: [facility] OR; Service: Vascular; Laterality: Left; Declot graft Left 03/07/2014 Procedure: GRAFT - DECLOT; Surgeon: Rik Simon MD; Location: [facility] OR; Service: Va scular; Laterality: Left; Av fistula placement Left 04/08/2014 Procedure: AV FISTULA; Surgeon: Rik Simon MD; Location: [facility] OR; Service: Vascul ar; Laterality: Left; cephalic Dialysis fistula creation N/A 04/08/2014 Procedure: DIALYSIS CATHETER - INSERTION; Surgeon: Rik Simon MD; Location: [facility] R; Service: Vascular; Laterality: N/A; tunneled catheter Laparoscopic peritoneal dialysis catheter insertion Right 07/2013 current dialysis access MWF dialysis Superficialization of av fistula Left 06/24/2014 Procedure: AV FISTULA - SUPERFICIALIZATION; Surgeon: Rik Simon MD; Location: [facility] OR; Service: Vascular; Laterality: Left; [...] Activity: Not on file Other Topics Concern None Social History Narrative Medications and Allergies: Current Medications: diphenhydrAMINE 50 mg Oral Once Or diphenhydrAMINE 50 mg Intravenous Once lidocaine 1 mL Intradermal Once lidocaine buffered 1% 0.5 mL Intradermal Once methylPREDNISolone 125 mg Intravenous Once sodium chloride 10 mL Intravenous Q8H Prescriptions prior to admission Medication Sig Dispense Refill Last Dose cinacalcet (SENSIPAR) 30 MG tablet Take 60 mg by mouth daily. 08/31/2015 at 2100 sevelamer (RENVELA) 800 MG tablet Take 800 mg by mouth 3 (three) times daily with meals . 08/31/2015 at 2100 Allergies: Allergies Allergen Reactions Fentanyl Itching Iodinated Diagnostic Agents Itching Pt c/o face itching during fistulagram Morphine Rash Tape [Adhesive Tape] Rash Use silk tape only Labs: No visits with results within 1 Day(s) from this visit. Latest known visit with results is: Admission on 08/13/2015, Discharged on 08/13/2015 Component Date Value Ref Range Status POTASSIUM 08/13/2015 5.1* 3.5 - 4.9 mmol/L Final ] Imaging/Procedures: No results found. Physical Examination: Filed Vitals: 09/01/15 0846 BP: 124/63 Pulse: 78 Temp: 98.4 F (36.9 C) Resp: 16 SpO2: 98% APPEARANCE: AAO X 3 HEENT: Normal LUNGS: Clear to auscultation and percussion; CV: Heart sounds are normal. Regular rate and rhythm without murmur, gallop or rub. ABD: soft, non-tender, without masses or organomegaly EXT: +thrill LUE AVF NEURO: normal without focal findings, mental status, speech normal, alert and oriented x3, POOJA and reflexes normal and symmetric Plan for Sedation: Moderate sedation Moderate Sedation Presedation Assessment completed. ASA Classification: ASA 2: Patient with a mild systemic disease Mallampati Classification: II: Visibility of hard and soft palate, upper portion of tonsil s and uvula Consent: Risks, alternatives, and benefits of the procedure were discussed with the patient. All que stions were answered and addressed. Signed and verbal consent were given as witnessed by sta ff. Procedure to be performed: LUE AVF venogram; poss intervention Dr. Doyle Diaz MD Vascular and Interventional Radiology documente d in this encounter Miscellaneous Notes Op Note - Doyle Diaz MD - 09/01/2015 10:06 AM PDTFormatting of this note might be diffe rent from the original. Brief Op Note by Doyle Diaz MD at 09/01/15 1006 Author: Doyle Diaz MD Service: Interventional Radiology Author Type: Physician Filed: 09/01/15 1008 Date of Service: 09/01/15 1006 Status: Signed Svp: Doyle Diaz MD (Physician) Interventional Radiology Post Procedure Note Patient Name: Dara Weldon Date of : 1995 Pre OP Diagnosis: Difficulty with cannulation assoc. with HD Post OP Diagnosis: Same Procedure: LUE AVF venogram; balloon angioplasty Interventional Radiologist: Doyle Diaz MD Vendette: None Anesthesia Type: Moderate sedation Findings: In-stent stenosis of juxta-anastomotic venous outflow, angioplastied with 6 mm balloon. Pos t-angioplasty AVF venogram demonstrates a patent outflow. EBL: Minimal Complications: None PLAN: F/U AVF venogram in [address] Doyle Diaz MD [...] | 2. IR ANGIOPLASTY AV FISTULA VENOUS GENERAL PRODUCTION LABORER: Doyle Diaz MD | | | CONSENT: [...] | | Over a guidewire, a 4 Venezuelan angled catheter was advanced and | | [...] | ANGIOPLASTY: Over a guidewire, a 6 Venezuelan sheath was advanced | | | and [...] IR ANGIOPLASTY AV | | FISTULA VENOUS GENERAL PRODUCTION LABORER: Doyle Diaz MD CONSENT: The risks, benefits [...] micropuncture needle. Over a guidewire, a 4 Venezuelan angled catheter was | | advanced and [...] appears patent. ANGIOPLASTY:Over a guidewire, a 6 Venezuelan sheath was | | advanced and positioned [...] AM | |Over a guidewire, a 6 Venezuelan sheath was advanced and positioned into the [...] | 2. IR ANGIOPLASTY AV FISTULA VENOUS GENERAL PRODUCTION LABORER: Doyle Diaz MD | | | CONSENT: [...] | | Over a guidewire, a 4 Venezuelan angled catheter was advanced and | | [...] | ANGIOPLASTY: Over a guidewire, a 6 Venezuelan sheath was advanced | | | and [...] IR ANGIOPLASTY AV | | FISTULA VENOUS GENERAL PRODUCTION LABORER: Doyle Diaz MD CONSENT: The risks, benefits [...] micropuncture needle. Over a guidewire, a 4 Venezuelan angled catheter was | | advanced and [...] appears patent. ANGIOPLASTY:Over a guidewire, a 6 Venezuelan sheath was | | advanced and positioned [...] AM | |Over a guidewire, a 6 Venezuelan sheath was advanced and positioned into the [...] EXTERNAL | | | | performed at [facility];[address] | mmol/L | LAB | | | | [address];[place], [place] | | | | | | [address] | | | | + + + [...]
--- OUTSIDE RECORDS SUMMARY | ~2019-12-25 | XMS | Encounter Summary ---
Demographics + + + | Address | [address] | | | [place] [address] | + + + | Home Phone [...] Providers + +------+ + | Care Energy Scheduler Name | Role | Phone | [...] | | | | Anemia in | [place], [place] | [place], | | | | | ESRD | [address] | [place] [address] | | | | | (end-stage | Phone: | Phone: | | | | | renal | [phone] | [phone] | | | | | disease) | Fax: | Fax: | | | | | ([facility]) | [phone] | [phone] | | | | | Procedures | [...] DO [address] | renal disease) ([facility]) | | | | [address] | [address] [place] | (Primary Dx) | | | | [place], [place] | [place] [address] | | | | | [address] | [phone] | | | | | [phone] | | | +--------+ + + + [...] weeks. : Jamil Joy M.D., Pediatric Nephrology, [facility] documented in th is encounter Plan of Treatment Not on filedocumented as of this encounter Visit Diagnoses + + | Diagnosis | + + | ESRD (end stage renal disease) (HCC) - Primary End stage renal disease | + + documented in this encounter"
--- OUTSIDE RECORDS SUMMARY | ~2019-12-25 | XMS | Encounter Summary ---
Demographics + + + | Address | [address] | | | [place] [address] | + + + | Home Phone [...] + | 10/08/ | Orders Only | [facility] | Provider, | Systolic congestive | | 2018 | | SYSTEM GENERIC OP | MD [address] | heart failure (HCC) | | | | CONVERSION [address] | [place]. | | | | | [address] [place], [place] | [place] [address] | | | | | [address] | | | | | | [phone] | | | +--------+ + + + [...]
--- OUTSIDE RECORDS SUMMARY | ~2019-12-25 | XMS | Encounter Summary ---
Demographics + + + | Address | [address] | | | [place] [address] | + + + | Home Phone [...] | Author | [facility] | | | and [place] | + + + | Organization | [facility] | | | [...] Providers + +------+ + | Care Senior Quality Assurance Specialist Name | Role | Phone | [...] [address] | [place] [address] | | | | | [address] [place] | [phone] | | | | | [address] | | | | | | [phone] | | | +--------+ + + + [...]
--- OUTSIDE RECORDS SUMMARY | ~2019-12-25 | XMS | Encounter Summary ---
Demographics + + + | Address | [address] | | | [place] [address] | + + + | Home Phone [...] Team Providers + +------+ + | Care Fighting Vehicle Infantryman Name | Role | Phone | + [...] | | | | Anemia in | [place], [place] | [place], | | | | | ESRD | [address] | [place] [address] | | | | | (end-stage | Phone: | Phone: | | | | | renal | [phone] | [phone] | | | | | disease) | Fax: | Fax: | | | | | ([facility]) | [phone] | [phone] | | | | | Procedures | | | | | | | [place] OFFICE | | | | | | [...] DO [address] | renal disease) ([facility]) | | | | [address] | [address] [place] | (Primary Dx) | | | | [place], [place] | [place] [address] | | | | | [address] | [phone] | | | | | [phone] | | | +--------+ + + + [...] Fina charge nurse, Elisabeth Quijano RN, and [facility] medical student Yefri Bean MS III, about lifestyle modification, compliance, and her potential risk for increased her vascular morbidity, mortality. 2. 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 I discussed this wi th the renal CARPET LAYER. 3. Monthly lab was reviewed with the [...]
--- OUTSIDE RECORDS SUMMARY | ~2019-12-25 | XMS | Encounter Summary ---
Demographics + + + | Address | [address] | | | [place] [address] | + + + | Home Phone [...] + +------+ + | Care Contact Center Agent Name | Role | Phone | [...] [address] | renal disease) ([facility]) | | | | [address] | [address] [place] | (Primary Dx) | | | | [place], [place] | [place] [address] | | | | | [address] | [phone] | | | | | [phone] | | | +--------+ + + + [...]
--- OUTSIDE RECORDS SUMMARY | ~2019-12-25 | XMS | Encounter Summary ---
Demographics + + + | Address | [address] | | | [place] [address] | + + + | Home Phone [...] Team Providers + +------+ + | Care Cherry Cutter Name | Role | Phone | [...] [address] [place] | | | | | [place], [place] | [place] [address] | | | | | [address] | [phone] | | | | | [phone] | | | +--------+ + + + [...] AM PDTHEMO progress note manually faxed to [facility] [place], e-faxed to Lianna Joy [facility] Pediatric Nephrology on 09/30. Daniela Marquez MD - 09/20/2013 2:55 PM PDT Comprehensive Dialysis Monthly Note Date of visit: 09/20/2013 Dialysis Clinic: [facility] Mode of dialysis: Hemodialysis Dialysis prescription: MWF, t=4 hrs, Na 138, K 3, bicarb 30, BFR 450, EDW 93 kg HPI: Dara Weldon is a 18 y.o. female with ESRD on hemodialysis. Pt reports feeling well. Pt denies shortness of breath, chest pain, edema, abdominal pain, fever. Pt reports she will be seeing Dr. Joy ([facility]) next month. Pt reports she has been swimming with chest catheter; pt reports she covers the site/cathet er with waterproof dressing with tape around the catheter. 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 Pt has been referred to [facility]. -pt will f/u with them next month cc: Lucille Griffin [facility] Dr. Lianna Joy, [facility] Pediatric Nephrology documented in this encounter [...]
--- OUTSIDE RECORDS SUMMARY | ~2019-12-25 | XMS | Encounter Summary ---
Demographics + + + | Address | [address] | | | [place] [address] | + + + | Home Phone [...] Providers + +------+ + | Care Rn Cardiac Name | Role | Phone | + [...] | Interventiona | Diagnoses | Ibarra, | Jovana, | | | Services | l Radiology | Dialysis AV | Daniela Pool, | MD Darryn | | | Required | | fistula | [address] | | | | | malfunction, | [address] | [address] | | | | | initial | [address] | [place], | | | | | encounter | [place], | [place] [address] | | | | | ([facility]) | [place] [address] | Phone: | | | | | | Phone: | [phone] | | | | | | [phone] | Fax: | | | | | | Fax: | [phone] | | | | | | [phone] | | +--------+ + + + + [...] | | | | fistula | MD [address] | | | | | malfunction, | [address] | [place], | | | | | initial | [address] | [place] [address] | | | | | encounter | [place], | Phone: | | | | | ([facility]) | [place] [address] | [phone] | | | | | Procedures | Phone: | Fax: | | | | | IR Procedure | [phone] | [phone] | | | | | [address] | Fax: | | | | | | NEEDLE/CATH | [phone] | | | | | | A-V [...] W, | Dialysis AV fistula | | 2014 | | NEPHROLOGY [address] | MD [address] | malfunction, initial | | | | [address] | [address] [place] | encounter ([facility]) | | | | [place], [place] | [place] [address] | (Primary Dx) | | | | [address] | [phone] | | | | | [phone] | | | +--------+ + + + [...]
--- OUTSIDE RECORDS SUMMARY | ~2019-12-25 | XMS | Encounter Summary ---
Demographics + + + | Address | [address] | | | [place] [address] | + + + | Home Phone [...] Team Providers + +------+ + | Care Oxidation Engineer Name | Role | Phone | + +------+ + PCP | Unavailable | + +------+ + Encounter Details +--------+ + + + + | Date | Type | Department | Care Team | Description | +--------+ + + + + | 05/29/ | Hospital | [facility] | Conversion | End stage renal | | 2015 | Encounter | CENTER CV INTRA OP | Transaction, | disease (HCC) | | | | [address] | Provider Unknown | | | | | [place], [place] | [phone] | | | | | [address] | | | | | | [phone] | Darryn Whaley, | | | | | | [address] | | | | | | [place], [place] | | | | | | [address] | | | | | | | [...] LAB | | Testing performed at [facility];[address] [place] [address];[place] [address] MRSA PCR | | | NEGATIVE Testing performed at | | | [address];[place] [address] | | + + + + +---------+ [...]
--- OUTSIDE RECORDS SUMMARY | ~2019-12-25 | XMS | Encounter Summary ---
Demographics + + + | Address | [address] | | | [place] [address] | + + + | Home Phone [...] [facility] | | | and [place] | + + + | Organization | [facility] | | | and [...] Providers + +------+ + | Care Machine Marker Name | Role | Phone | + +------+ + PCP | Unavailable | + +------+ + Encounter Details +--------+ + + + + | Date | Type | Department | Care Team | Description | +--------+ + + + + | 04/08/ | Hospital | [facility] | Rik Simon MD | | | 2015 | Encounter | [facility] | [address] | | | | | [address] | [place], [place] | | | | | [place], [place] | [address] | | | | | [address] | [phone] | | | | | [phone] | | | +--------+ + + + [...] 142 Date of Service: 04/08/141425 Status: Signed Adhesive Sprayer: Coral Amador RPH (Pharmacist) Clinical Pharmacy Note - Renal Dose Adjustment Dara Carteron 19 y.o. female Ht Readings from Last 1 Encounters: 04/08/14 1.676 m (5' 6") (75 %*, Z = 0.69) * Growth percentiles are based on [facility] 2-20 Years data. Wt Readings from Last 1 Encounters: 04/08/14 96.2 kg (212 lb 1.3 oz) (98 %*, Z = 2.12) * Growth percentiles are based on [facility] 2-20 Years data. CREATININE Date Value Ref Range Status 04/08/2014 8.68* 0.50 - 1.00 mg/dL Final Testing performed at [facility];[address] [place] [address];[place] [address] ESRD on HD Pharmacy to renally adjust medications per Dr. Siomn Plan: No medications require dose adjustment for [...] Date of Service: 04/08/14 1408 Status: Signed Adhesive Sprayer: Cheryl Rubalcava RN (Registered Nurse) Pt and [...] Date of Service: 04/08/14 1321 Status: Signed Adhesive Sprayer: Cheryl Rubalcava RN (Registered Nurse) Pt family [...] 04/08/1450 Date of Service: 04/08/1450 Status: Signed Adhesive Sprayer: KRISHNA Agarwal (Advanced Registered Nurse Practitioner) [facility] Service: Vascular Surgery Pre-Operative History [...] GRAFT REPAIR/REVISION; Surgeon: Rik Simon MD; Location: [facility]; Service: Vascular; Laterality: Left; Declot graft Left 03/07/2014 Procedure: GRAFT - DECLOT; Surgeon: Rik Simon MD; Location: [facility]; Service: Va scular; Laterality: Left; Allergies Allergen Reactions Morphine Rash No current facility-administered medications on file prior to encounter. Current Outpatient Prescriptions on File Prior to Encounter Medication Sig Dispense Refill cinacalcet (SENSIPAR) 30 MG tablet Take 25 mg by mouth daily. folic acid-vitamin b complex-vitamin y-sfcvtxnt-gndw (DIALYVITE) 3 MG TABS Take 1 table [...] Note by Rik Simon MD at 04/08/14 1511 Author: Rik Simon MD Service: Vascular Surgery Author Type: Physician Filed: 04/08/14 1150 Date of Service: 04/08/14 1139 Status: Signed Adhesive Sprayer: Rik Simon MD (Physician) [facility] Service: Vascular Surgery Operative Note Pre-operative Diagnosis: ESRD and need for termite treater helper dialysis access Post-operative Diagnosis: Same Procedure(s): Left brachiocephalic fistula creation Replacement of right IJ tunneled dialysis catheter over wire under fluoroscopic guidanc e Surgeon: Rik Simon MD Monitor Car Operator(s): KRISHNA Agarwal Anesthesia: General LMA Estimated Blood [...] Sonido Steele Conversion - 10/19/2018 6:38 AM RGECIA CULLEN C-ARM FLUORO UP TO 1 | [...] LAB | | | | Blvd;[place] [address] | | | | + + + + + + | Antibody | NEGATIVE | | EXTERNAL | | | Screen | | | LAB | | + + + + + + | Antibody | Testing performed at | | EXTERNAL | | | Screen | [facility];[address] | | LAB | | | | [address];[place] [address] | | | | + + + + + + | BB BAND | [id number] | | EXTERNAL | | | | | | LAB | | + + + + + + | BB BAND | Testing performed at | | EXTERNAL | | | | [facility];[address] [facility] | | LAB | | | | Blvd;[place] [address] | | | | + + + [...] [facility];[address] | mmol/L | LAB | | | | [address];[place] | | | | | | [address] | | | | + + + + + + | K | 4.1Comment: SLT | 3.5 - 4.9 | EXTERNAL | | | | HEMOLYSISTesting | mmol/L | LAB | | | | performed at [facility];[address] | | | | | | [address];[place] | | | | | | [address] | | | | + + + + + + | Cl | 102Comment: Testing | 99 - 109 mmol/L | EXTERNAL | | | | performed at [facility];[address] | | LAB | | | | [address];[place] | | | | | | [address] | | | | + + + + + + | CO2 | 28Comment: Testing | 23 - 32 mmol/L | EXTERNAL | | | | performed at [facility];[address] | | LAB | | | | [address];[place] | | | | | | [address] | | | | + + + + + + | Anion Gap | 13Comment: Testing | 5 - 20 mmol/L | EXTERNAL | | | | performed at [facility];[address] | | LAB | | | | [address];[place] | | | | | | [address] | | | | + + + + + + | Glucose, | 87Comment: Testing | 65 - 99 mg/dL | EXTERNAL | | | Fasting | performed at [facility];[address] | | LAB | | | | [address];[place] | | | | | | [address] | | | | + + + + + + | BUN | 32 (H)Comment: Testing | 8 - 25 mg/dL | EXTERNAL | | | | performed at [facility];[address] | | LAB | | | | [address];[place] | | | | | | [address] | | | | + + + + + + | Creatinine | 8.68 (H)Comment: Testing | 0.50 - 1.00 | EXTERNAL | | | | performed at [facility];[address] | mg/dL | LAB | | | | [address];[place] | | | | | | [address] | | | | + + + + + + | BUN/Creatin | 4Comment: Testing | | EXTERNAL | | | ine Ratio | performed at [facility];[address] | | LAB | | | | [address];[place] | | | | | | [address] | | | | + + + + + + | Calcium | 8.8Comment: NOTE NEW | 8.5 - 10.5 | EXTERNAL | | | | REFERENCE RANGETesting | mg/dL | LAB | | | | performed at [facility];[address] | | | | | | [address];[place] | | | | | | [address] | | | | + + + [...] [place] | | | | | | [address] | | | | + + + [...]
--- OUTSIDE RECORDS SUMMARY | ~2019-12-25 | XMS | Encounter Summary ---
Demographics + + + | Address | [address] | | | [place] [address] | + + + | Home Phone [...] Team Providers + +------+ + | Care Custodian Blood Bank Name | Role | Phone | + +------+ + PCP | Unavailable | + +------+ + Encounter Details +--------+ + + + + | Date | Type | Department | Care Team | Description | +--------+ + + + + | 12/08/ | Abstract | [facility] [place] | Ibarra, Daniela W, | | | 2017 | | NEPHROLOGY [address] | MD [address] | | | | | [address] | [address] [place] | | | | | [place], [place] | [place] [address] | | | | | [address] | [phone] | | | | | [phone] | | | +--------+ + + + [...] verification form rec eived from Navin Casanova senior property manager, [facility] regarding housing, do s: 12/08/16. Sent to scan. P DTdocumented in this encounter Plan of Treatment Not on filedocumented as of this encounter Visit Diagnoses Not on filedocumented in this encounter"
--- OUTSIDE RECORDS SUMMARY | ~2019-12-25 | XMS | Encounter Summary ---
Demographics + + + | Address | [address] | | | [place] [address] | + + + | Home Phone [...] Providers + +------+ + | Care Support Assistant Name | Role | Phone | [...] Encounter | CONVERSION | MD Emanuel [address] [facility] | | | | | [address]PART[address] | [place] | [address] | | [address] | [place], [place] | | | | | [place], [place] | [address] | | | | | [address] | [phone] | | | | | [phone] | | | +--------+ + + + [...]
--- OUTSIDE RECORDS SUMMARY | ~2019-12-25 | XMS | Encounter Summary ---
Demographics + + + | Address | [address] | | | [place] [address] | + + + | Home Phone [...] Providers + +------+ + | Care Air Brake Tester Name | Role | Phone | [...] Encounter | CONVERSION | MD Emanuel [address] [facility] | | | | | [address] | [address] | | | | | [address] | [place], [place] | | | | | [place], [place] | [address] | | | | | [address] | [phone] | | | | | [phone] | | | +--------+ + + + [...]
--- OUTSIDE RECORDS SUMMARY | ~2019-12-25 | XMS | Encounter Summary ---
Demographics + + + | Address | [address] | | | [place] [address] | + + + | Home Phone [...] Providers + +------+ + | Care Manager Primary Care Name | Role | Phone | [...] | | | | | | [place] | | | | | | | [...] + + | 02/24/ | Anesthesia | [facility] | Celso Dacosta | Obesity (BMI | | 2013 | Event | MED CTR OR INTRA OP | MD Douglas [address] | 30.0-34.9) (Primary | | | | [address] | [address] [place] | Dx) | | | | [place] | [address] | | | | | [address] | | | | | | [phone] | | | +--------+ + + + [...] +----+---+ + + | | 0 | [place] | | | | 7 | 43-degrees [...] +----+---+ + + | | 1 | [place] off | | | | 0 | [...] EVALUATION Dara Weldon 18 y.o. female 1995 [id number] Procedure: Procedure(s):LEFT Radical Cephalic Fistula Creation Filed [...] signed by Celso Dacosta MD 02/24/2014 11:11 [facility] nesthesia Preproc edure Evaluation - Celso Dacosta MD - 02/24/2014 7:05 AM PSTFormatting of this note m ight be different from the original. ANESTHESIA PREANESTHESIA EVALUATION Dara Weldon 18 y.o. female 1995 [id number] Scheduled procedure INSERTION AV FISTULA [1201] - LEFT RADICAL CEPHALIC FISTULA CREATION Medical history, anesthesia, medications, allergy histories reviewed. Labs reviewed. ROS / Med History Ane (-) PONV, difficult intubation, malignant hyperthermia . NPO status verified. CV (-) hypertension, CAD, past CA, CHF, congenital heart disease, pulmonary hypertension, pace [...]
--- OUTSIDE RECORDS SUMMARY | ~2019-12-25 | XMS | Encounter Summary ---
Demographics + + + | Address | [address] | | | [place] [address] | + + + | Home Phone [...] Providers + +------+ + | Care It Coordinator Name | Role | Phone | + +------+ + PCP | Unavailable | + +------+ + Encounter Details +--------+---------+ + + + | Date | Type | Department | Care Team | Description | +--------+---------+ + + + | 07/10/ | E-Visit | [facility] | Jorje Camp | | | 2017 | | NEPHROLOGY [address] | M, DO [address] | | | | | [address] | [address] [place] | | | | | [place], [place] | [place] [address] | | | | | [address] | [phone] | | | | | [phone] | | | +--------+---------+ + + + [...]
--- OUTSIDE RECORDS SUMMARY | ~2019-12-25 | XMS | Encounter Summary ---
Demographics + + + | Address | [address] | | | [place] [address] | + + + | Home Phone [...] | Author | [facility] | | | and [place] | + + + | Organization | [facility] | | [...] Team Providers + +------+ + | Care Quantitative Software Engineer Name | Role | Phone [...] [address] [place] | | | | | [place], [place] | [place] [address] | | | | | [address] | [phone] | | | | | [phone] | | | +--------+ + + + [...] [facility], Sudhakar Joy MD at [facility], Doyle Diaz MD (fx: [phone]) on 08/31/15.Electronically signed by Marilyn Palumbo at [...] fairly apathetic here when interviewed in the [facility] clinic on rounds.her at tendance is better.after inquiry, she has no formal plans for employment or future education . I've encouraged her to discuss this with counselors or particularly, vocational counselor s. Otherwise, she is very pleasant here in clinic. She had some trouble with an AVF venous stenosis, and had INFRASTRUCTURE TECH with an F Jonathan last week. Apparently [...] After reviewing the Care Everywhere tab in [facility], I noticed that she is still being eval uated for a possible renal allograft at [facility], [facility].honestly, given her recent suboptimal compliance with fluid gains, hyperphosphatemia, and missed treatments I think anitha quarles would be at high risk for graft loss from noncompliance? Will attempt to get in touch wit sebastian Joy, Pediatric Nephrology. 4. Will recheck her in one week. I appreciate Dr. Diaz's help with her recent fistulogram . CC: Mabie Fina Joy M.D., Pediatric Nephrology, [facility], [facility] Doyle Diaz M.D., IR, [facility] documented in thi s encounter Plan of Treatment Not on filedocumented as of this encounter Visit Diagnoses + + | Diagnosis | + + | ESRD (end stage renal disease) (HCC) - Primary End stage renal disease | + + documented in this encounter"
--- OUTSIDE RECORDS SUMMARY | ~2019-12-25 | XMS | Encounter Summary ---
Demographics + + + | Address | [address] | | | [place] [address] | + + + | Home Phone [...] Providers + +------+ + | Care Medical Communication Specialist Name | Role | Phone | + +------+ + PCP | Unavailable | + +------+ + Encounter Details +--------+ + + + + | Date | Type | Department | Care Team | Description | +--------+ + + + + | 06/12/ | Hospital | [facility] | Conversion | | | 2015 | Encounter | [facility] | Transaction, | | | | | CLINIC [address] | Provider Unknown | | | | | [address] [place], [place] | | | | | | [address] | (Fax) | | | | | [phone] | | | +--------+ + + + [...] Instructions by Sulma Alanis RN at 06/12/14 5124 Author: Sulma Alanis RN Service: Anesthesiology Author Type: Registered Nurse Filed: 06/12/14 1628 Date of Service: 06/12/14 1322 Status: Signed [place] Drawer: Sulma Alanis RN (Registered Nurse) Pt meets METS of 4 per AHA guidelines. Pt has dialysis cath in right upper chest, dialysis MWF in [place], [place]. Sees Dr Christensen dialysis . Dr [...] | | Patient | performed at [facility];[address] | | LAB | | | [address];[place], [place] | | | | | | [address] | | | | + + [...] | | | | performed at [facility];[address] | | | | | | [address] [facility];[place], [place] | | | | | | [address] | | | | + + + [...] | | | | | [place] [address] | | | | + + + + + + | Non- | 3.83Comment: Testing | 3.70 - 5.10 | EXTERNAL | | | Red Blood | performed at [facility], [address] | M/uL | LAB | | | Cells | [address], | | | | | Counted | [place] [address] | | | | + + + + + + | Hemoglobin | 13.6Comment: Testing | 11.3 - 15.5 | EXTERNAL | | | | performed at [facility], [address] | g/dL | LAB | | | | [address], | | | | | | [place] [address] | | | | + + + + + + | Hematocrit, | 40.5Comment: Testing | 34.0 - 46.0 % | EXTERNAL | | | POC | performed at [facility], [address] | | LAB | | | | [address], | | | | | | [place] [address] | | | | + + + + + + | MCV | 105.8 (H)Comment: | 80.0 - 100.0 fl | EXTERNAL | | | | Testing performed at | | LAB | | | | [facility], [address] [facility] | | | | | | [place] | | | | | | [address] | | | | + + + + + + | MCH | 35.6 (H)Comment: Testing | 27.0 - 34.0 pg | EXTERNAL | | | | performed at [facility], [address] | | LAB | | | | [address], | | | | | | [place] [address] | | | | + + + + + + | MCHC | 33.6Comment: Testing | 32.0 - 35.5 | EXTERNAL | | | | performed at [facility], [address] | g/dL | LAB | | | | [address], | | | | | | [place] [address] | | | | + + + + + + | RDW-CV | 50.3Comment: Testing | 37 - 53 fl | EXTERNAL | | | | performed at [facility], [address] | | LAB | | | | [address], | | | | | | [place] [address] | | | | + + + + + + | Platelet | 170Comment: Testing | 150 - 400 K/uL | EXTERNAL | | | Count | performed at [facility], [address] | | LAB | | | Plasma | [address], | | | | | | [place] [address] | | | | + + + + + + | MPV | 9.5Comment: Testing | fl | EXTERNAL | | | | performed at [facility], [address] | | LAB | | | | [address], | | | | | | [place] [address] | | | | + + + + + + | Differentia | AUTOMATEDComment: | | EXTERNAL | | | l Type | Testing performed at | | LAB | | | | [facility], [address] | | | | | | [place] | | | | | | [address] | | | | + + + + + + | % Segmented | 61.53Comment: Testing | % | EXTERNAL | | | | performed at [facility], [address] | | LAB | | | Neutrophils | [address], | | | | | | [place] [address] | | | | + + + + + + | % | 26.38Comment: Testing | % | EXTERNAL | | | Lymphocytes | performed at [facility], [address] | | LAB | | | | [address], | | | | | | [place] [address] | | | | + + + + + + | % Monocytes | 8.30Comment: Testing | % | EXTERNAL | | | | performed at [facility], [address] | | LAB | | | | [address], | | | | | | [place] [address] | | | | + + + + + + | % | 3.19Comment: Testing | % | EXTERNAL | | | Eosinophils | performed at [facility], [address] | | LAB | | | | [address], | | | | | | [place] [address] | | | | + + + + + + | % Basophils | 0.60Comment: Testing | % | EXTERNAL | | | | performed at [facility], [address] | | LAB | | | | [address], | | | | | | [place] [address] | | | | + + + + + + | Absolute | 5.44Comment: Testing | 1.90 - 7.40 | EXTERNAL | | | Segmented | performed at [facility], [address] | K/uL | LAB | | | Neutrophils | [address], | | | | | | [place] [address] | | | | + + + + + + | Absolute | 2.33Comment: Testing | 1.00 - 3.90 | EXTERNAL | | | Lymphocytes | performed at [facility], [address] | K/uL | LAB | | | | [address], | | | | | | [place] [address] | | | | + + + + + + | Absolute | 0.74Comment: Testing | 0.00 - 0.80 | EXTERNAL | | | Monocytes | performed at [facility], [address] | K/uL | LAB | | | | [address], | | | | | | [place] [address] | | | | + + + + + + | Absolute | 0.28Comment: Testing | 0.00 - 0.50 | EXTERNAL | | | Eosinophils | performed at [facility], [address] | K/uL | LAB | | | | [address], | | | | | | [place] [address] | | | | + + + + + + | Absolute | 0.05Comment: Testing | 0.00 - 0.10 | EXTERNAL | | | Basophils | performed at [facility], [address] | K/uL | LAB | | | | [address], | | | | | | [place] [address] | | | | + + + [...] | | | | | [place] [address] | | | | + + + + + + | K | 3.8Comment: Testing | 3.5 - 4.9 | EXTERNAL | | | | performed at [facility], [address] | mmol/L | LAB | | | | [address], | | | | | | [place] [address] | | | | + + + + + + | Cl | 94 (L)Comment: Testing | 99 - 109 mmol/L | EXTERNAL | | | | performed at [facility], [address] | | LAB | | | | [address], | | | | | | [place] [address] | | | | + + + + + + | CO2 | 31Comment: Testing | 23 - 32 mmol/L | EXTERNAL | | | | performed at [facility], [address] | | LAB | | | [address], | | | | | | [place] [address] | | | | + + + + + + | Anion Gap | 13Comment: Testing | 5 - 20 mmol/L | EXTERNAL | | | | performed at [facility], [address] | | LAB | | | | [address], | | | | | | [place] [address] | | | | + + + + + + | Glucose, | 95Comment: Testing | 65 - 99 mg/dL | EXTERNAL | | | Fasting | performed at [facility], [address] | | LAB | | | | [address], | | | | | | [place] [address] | | | | + + + + + + | BUN | 40 (H)Comment: Testing | 8 - 25 mg/dL | EXTERNAL | | | | performed at [facility], [address] | | LAB | | | | [address], | | | | | | [place] [address] | | | | + + + + + + | Creatinine | 7.24 (H)Comment: Testing | 0.50 - 1.00 | EXTERNAL | | | | performed at [facility], [address] | mg/dL | LAB | | | | [address], | | | | | | [place] [address] | | | | + + + + + + | BUN/Creatin | 6Comment: Testing | | EXTERNAL | | | ine Ratio | performed at [facility], [address] | | LAB | | | | [address], | | | | | | [place] [address] | | | | + + + + + + | Calcium | 10.2Comment: Testing | 8.5 - 10.5 | EXTERNAL | | | | performed at [facility], [address] | mg/dL | LAB | | | | [address], | | | | | | [place] [address] | | | | + + + [...] | | | | | [place] [address] | | | | + + + [...] EXTERNAL LAB | | Testing performed at [address];[place] [address] MRSA PCR | | | NEGATIVE Testing performed at | | | [facility];[address] [place] [address];[place] [address] | | + + + + +---------+ + + | Performing | Address | City/State/Zipcode | Phone Number | | Organization | | | | + +---------+ + + | EXTERNAL LAB | | | | + +---------+ + + documented in this encounter Visit Diagnoses Not on filedocumented in this encounter"
--- OUTSIDE RECORDS SUMMARY | ~2019-12-25 | XMS | Encounter Summary ---
Demographics + + + | Address | [address] | | | [place] [address] | + + + | Home Phone [...] Providers + +------+ + | Care Paper Winder Name | Role | Phone | + [...] | | | | [address] | [place], [place] | [place], | | | | | stage renal | [address] | [place] [address] | | | | | disease | Phone: | Phone: | | | | | ([facility]) | [phone] | [phone] | | | | | Infection | Fax: | Fax: | | | | | and | [phone] | [phone] | | | | | inflammatory | [...] | Off-Site | [facility] [place] | ConradoShravanJorje | Anemia in ESRD | | 2013 | Visit | NEPHROLOGY [address] | M, DO [address] | (end-stage renal | | | | [address] | [address] [place] | disease) ([facility]) | | | | [place], [place] | [place] [address] | (Primary Dx); ESRD | | | | [address] | [phone] | (end stage renal | | | | [phone] | | disease) ([facility]) | +--------+ + + + + Social [...] matriculating well through her senior year of [employer] and enjoys her school. Outpatient Prescriptions Marked as Taking for the 10/28/13 encounter (Off-Site Visit) with Camille Camp DO Medication Sig Dispense Refill cholecalciferol (VITAMIN D-3) 1,000 units tablet Take 1,000 Units by mouth Daily. cinacalcet (SENSIPAR) 30 mg tablet Take 30 mg by mouth Daily. [DISCONTINUED] Doxercalciferol (HECTOROL IV) Inject 1 mcg into the vein Three times a w [place]. Epoetin Andres (EPOGEN IJ) 4,400 Units by [...] excellent candidate for a renal allograft. CC: [facility], [facility] documented in thi s encounter Plan [...]
--- OUTSIDE RECORDS SUMMARY | ~2019-12-25 | XMS | Encounter Summary ---
Demographics + + + | Address | [address] | | | [place] [address] | + + + | Home Phone [...] Providers + +------+ + | Care Hairspring Fabrication Supervisor Name | Role | Phone | [...] | OPER[address] | [address] [place], [place] | initial encounter | | | | [address] | [address] | (HCC) | | | | [place], [place] | [phone] | | | | | [address] | | | | | | [phone] | | | +--------+ + + + [...] 1449 Date of Service: 03/07/141729 Status: Signed Shear Operator Automatic: KRISHNA Agarwal (Advanced Registered Nurse Practitioner) [facility] Service: Vascular Surgery Pre-Operative History & Physical [...] [address] Echevarria in [facility] who is currently out of town. [...] Date of Service: 03/07/14 1610 Status: Signed Shear Operator Automatic: Lul Elizabeth MD (Physician) Procedure Orders: 1. EKG [[id number]] ordered by Lul Elizabeth MD at 03/07/14 1600 [facility] Department of Emergency Medicine 4:10 PM History [...] one week and a half ago in [place]. She is still using a righ t [...] Yes Historical Provider folic acid-vitamin b complex-vitamin r-rnzerxhb-hdft (DIALYVITE) 3 MG TABS Take 1 tablet [...] arm fistula complication Negative for chest pain, tklhnamtx-pz-ypkoes, or cough GI: Negative for abdominal pain, [...] Value Ref Range Date/Time Complete Metabolic Panel [[id number]] (Abnormal) Collected: 03/07/141624 Order Status: Completed Updated: [...] VALID IF AGE LT 20 YEARS. PTT [[id number]] Collected: 03/07/141624 Order Status: Completed Updated: 03/07/14 170 Specimen Information: Blood APTT 29 23 - 32 seconds CBC w Auto Diff [[id number]] (Abnormal) Collected: 03/07/141624 Order Status: Completed Updated: [...] Info Rik Paez MD In [address] [place] [address] Discharge Medications: Discharge Medication List as of [...] signed by Rik Paez MD at 03/13/14 0746 Author: Rik Paez MD Service: Vascular Surgery Author Type: Physician Filed: 03/13/14 0735 Date of Service: 03/12/14 1613 Status: Signed Shear Operator Automatic: Rik Paez MD (Physician) DARA LOUISE Date of : 1995 DATE OF SERVICE March 07, 2014. PREOPERATIVE DIAGNOSIS End-stage renal disease and clotted left radiocephalic fistula. POSTOPERATIVE DIAGNOSIS End-stage renal disease and clotted left radiocephalic fistula. PROCEDURES 1. Thrombectomy of left radiocephalic fistula. 2. Thrombectomy of left radial artery. 3. Patch angioplasty of arterial anastomosis using bovine pericardial patch. SURGEON Rik Paez MD THERMAL SURFACING MACHINE OPERATOR KRISHNA Agarwal ANESTHESIA Moderate sedation with anesthesia present and local anesthesia. ESTIMATED BLOOD LOSS Less than 100 mL. FLUIDS GIVEN 200 mL crystalloid. INDICATIONS Ms. Louise is a pleasant 19-year-old female with past medical history significant for Hen och-Schonlein purpura who presents with a clotted left radiocephalic fistula. She states vilma t the fistula was created [address] Chavarria in [place], who is currently out of t own. [...] was then used to perform a [facility] angioplasty over the carrillo of the [...] the left radiocephalic fistula. CONDITION Stable. P/ P/dlm/[id number] RIK PAEZ MD p Note - Rik Paez MD - 03/07/2014 7:08 PM PST Brief Op Note by Rik Paez MD at 03/07/141907 Author: Rik Paez MD Service: Vascular Surgery Author Type: Physician Filed: 03/07/141913 Date of Service: 03/07/141907 Status: Signed Shear Operator Automatic: Rik Paez MD (Physician) [facility] Service: Vascular Surgery Brief Op Note Pre-operative Diagnosis: ESRD and clotted left radiocephalic fistula Post-operative Diagnosis: Same Procedure(s): Thrombectomy of left radiocephalic fistula Thrombectomy of left radial artery Patch angioplasty of arterial anastomosis using bovine pericardial patch Surgeon: Rik Paez MD Operations Lead(s): KRISHNA Agarwal Anesthesia: Moderate sedation with Anesthesia [...] preparation was performed | | | by [employer], [facility], [address] [place] [address]., | | | [place] [address] (Flow Worker: Daniel Larson M.D.; | | | [facility]#: [id number]). Diagnostician: Anahy Da Silva MD Pathologist | [...] LAB | | | | Blvd;[place] [address] | | | | + + + + + + | Antibody | NEGATIVE | | EXTERNAL | | | Screen | | | LAB | | + + + + + + | Antibody | Testing performed at | | EXTERNAL | | | Screen | [facility];[address] | | LAB | | | | [address];[place] [address] | | | | + + + + + + | BB BAND | [id number] | | EXTERNAL | | | | | | LAB | | + + + + + + | BB BAND | Testing performed at | | EXTERNAL | | | | [facility];[address] | | LAB | | | | [address];[place] [address] | | | | + + + [...] (500), | | | | | | tape editor ROBERT BOOKER (8) | | | [...] | Lul Elizabeth MD 03/08/2014 2:32 AM [facility] | | | [place] Department of Emergency Medicine 4:10 PM History [...] | | | a half ago in [place]. She is still using a right subclavian [...] | | Provider folic acid-vitamin b complex-vitamin v-zcubkxyj-jdnq | | | (DIALYVITE) 3 MG TABS [...] Negative for chest pain, | | | jfvaeygqa-rx-qyfjoo, or cough GI: Negative for abdominal pain, [...] Date/Time Complete Metabolic | | | Panel [[id number]] (Abnormal) Collected: 03/07/141624 Order | | | [...] LT 20 YEARS. | | | PTT [[id number]] Collected: 03/07/141624 Order Status: | | | Completed Updated: 03/07/141704 Specimen Information: | | | Blood APTT 29 23 - 32 seconds CBC w Auto Diff [[id number]] | | | (Abnormal) Collected: 03/07/141624 Order [...] | Rik Paez MD In [address] [place] [address] | | | [phone] Discharge Medications: Discharge Medication | | | [...] | | | Patient | performed at [facility];[address] | | LAB | | | | [address];[place], [place] | | | | | | [address] | | | | + + + [...] EXTERNAL | | | | performed at [facility];[address] | | LAB | | | | [address];[place] | | | | | | [address] | | | | + + + + + + | Non- | 3.70Comment: Testing | 3.70 - 5.10 | EXTERNAL | | | Red Blood | performed at [facility];[address] | M/uL | LAB | | | Cells | [address];[place] | | | | | Counted | [address] | | | | + + + + + + | Hemoglobin | 12.9Comment: Testing | 11.3 - 15.5 | EXTERNAL | | | | performed at [facility];[address] | g/dL | LAB | | | | [address];[place] | | | | | | [address] | | | | + + + + + + | Hematocrit, | 38.9Comment: Testing | 34.0 - 46.0 % | EXTERNAL | | | POC | performed at [facility];[address] | | LAB | | | | [address];[place] | | | | | | [address] | | | | + + + + + + | MCV | 105.2 (H)Comment: | 80.0 - 100.0 fl | EXTERNAL | | | | Testing performed at | | LAB | | | | [facility];[address] | | | | | | [address];[place] [address] | | | | + + + + + + | MCH | 35.0 (H)Comment: Testing | 27.0 - 34.0 pg | EXTERNAL | | | | performed at [facility];[address] | | LAB | | | | [address];[place] | | | | | | [address] | | | | + + + + + + | MCHC | 33.3Comment: Testing | 32.0 - 35.5 | EXTERNAL | | | | performed at [facility];[address] | g/dL | LAB | | | | [address];[place] | | | | | | [address] | | | | + + + + + + | RDW-CV | 51.6Comment: Testing | 37 - 53 fl | EXTERNAL | | | | performed at [facility];[address] | | LAB | | | | [address];[place] | | | | | | [address] | | | | + + + + + + | Platelet | 175Comment: Testing | 150 - 400 K/uL | EXTERNAL | | | Count | performed at [facility];[address] | | LAB | | | Plasma | [address];[place] | | | | | | [address] | | | | + + + + + + | MPV | 8.9Comment: Testing | fl | EXTERNAL | | | | performed at [facility];[address] | | LAB | | | | [address];[place] | | | | | | [address] | | | | + + + + + + | Differentia | AUTOMATEDComment: | | EXTERNAL | | | l Type | Testing performed at | | LAB | | | | [facility];[address] | | | | | | [address];[place] [address] | | | | + + + + + + | % Segmented | 71.7Comment: Testing | % | EXTERNAL | | | | performed at [facility];[address] | | LAB | | | Neutrophils | [address];[place] | | | | | | [address] | | | | + + + + + + | % | 19.5Comment: Testing | % | EXTERNAL | | | Lymphocytes | performed at [facility];[address] | | LAB | | | | [address];[place] | | | | | | [address] | | | | + + + + + + | % Monocytes | 6.7Comment: Testing | % | EXTERNAL | | | | performed at [facility];[address] | | LAB | | | | [address] | | | | | | [address] | | | | + + + + + + | % | 1.6Comment: Testing | % | EXTERNAL | | | Eosinophils | performed at [facility];[address] | | LAB | | | | [address];[place] | | | | | | [address] | | | | + + + + + + | % Basophils | 0.5Comment: Testing | % | EXTERNAL | | | | performed at [facility];[address] | | LAB | | | | [address];[place] | | | | | | [address] | | | | + + + + + + | Absolute | 5.6Comment: Testing | 1.9 - 7.4 K/uL | EXTERNAL | | | Segmented | performed at [facility];[address] | | LAB | | | Neutrophils | [address];[place] | | | | | | [address] | | | | + + + + + + | Absolute | 1.5Comment: Testing | 1.0 - 3.9 K/uL | EXTERNAL | | | Lymphocytes | performed at [facility];[address] | | LAB | | | | [address];[place] | | | | | | [address] | | | | + + + + + + | Absolute | 0.5Comment: Testing | 0 - 0.8 K/uL | EXTERNAL | | | Monocytes | performed at [facility];[address] | | LAB | | | | [address];[place] | | | | | | [address] | | | | + + + + + + | Absolute | 0.1Comment: Testing | 0 - 0.5 K/uL | EXTERNAL | | | Eosinophils | performed at [facility];[address] | | LAB | | | | [address];[place] | | | | | | [address] | | | | + + + + + + | Absolute | 0.0Comment: Testing | 0 - 0.1 K/uL | EXTERNAL | | | Basophils | performed at [facility];[address] | | LAB | | | | [address];[place] | | | | | | [address] | | | | + + + [...] EXTERNAL | | | | performed at [facility];[address] | mmol/L | LAB | | | | [address];[place] | | | | | | [address] | | | | + + + + + + | K | 3.9Comment: Testing | 3.5 - 4.9 | EXTERNAL | | | | performed at [facility];[address] | mmol/L | LAB | | | | [address];[place] | | | | | | [address] | | | | + + + + + + | Cl | 103Comment: Testing | 99 - 109 mmol/L | EXTERNAL | | | | performed at [facility];[address] | | LAB | | | | [address];[place] | | | | | | [address] | | | | + + + + + + | CO2 | 26Comment: Testing | 23 - 32 mmol/L | EXTERNAL | | | | performed at [facility];[address] | | LAB | | | | [address];[place] | | | | | | [address] | | | | + + + + + + | Anion Gap | 12Comment: Testing | 5 - 20 mmol/L | EXTERNAL | | | | performed at [facility];[address] | | LAB | | | | [address];[place] | | | | | | [address] | | | | + + + + + + | Glucose, | 78Comment: Testing | 65 - 99 mg/dL | EXTERNAL | | | Fasting | performed at [facility];[address] | | LAB | | | | [address] | | | | | | [address] | | | | + + + + + + | BUN | 12Comment: Testing | 8 - 25 mg/dL | EXTERNAL | | | | performed at [facility];[address] | | LAB | | | | [address] | | | | | | [address] | | | | + + + + + + | Creatinine | 3.51 (H)Comment: Testing | 0.50 - 1.00 | EXTERNAL | | | | performed at [facility];[address] | mg/dL | LAB | | | | [address];[place] | | | | | | [address] | | | | + + + + + + | BUN/Creatin | 4Comment: Testing | | EXTERNAL | | | ine Ratio | performed at [facility];[address] | | LAB | | | | [address];[place] | | | | | | [address] | | | | + + + + + + | Calcium | 9.6Comment: Testing | 8.5 - 10.2 | EXTERNAL | | | | performed at [facility];[address] | mg/dL | LAB | | | | [address];[place] | | | | | | [address] | | | | + + + + + + | Protein, | 8.1Comment: Testing | 6.3 - 8.2 g/dL | EXTERNAL | | | Total | performed at [facility];[address] | | LAB | | | | [address] | | | | | | [address] | | | | + + + + + + | Albumin | 3.7Comment: Testing | 3.6 - 5.0 g/dL | EXTERNAL | | | | performed at [facility];[address] | | LAB | | | | [address];[place] | | | | | | [address] | | | | + + + + + + | Globulin | 4.3Comment: Testing | 1.3 - 4.9 g/dL | EXTERNAL | | | | performed at [facility];[address] | | LAB | | | | [address];[place] | | | | | | [address] | | | | + + + + + + | A/G Ratio | 0.9 (L)Comment: Testing | 1.0 - 2.4 | EXTERNAL | | | | performed at [facility];[address] | | LAB | | | | [address];[place] | | | | | | [address] | | | | + + + + + + | Bilirubin | 0.4Comment: Testing | 0.1 - 1.5 mg/dL | EXTERNAL | | | Total | performed at [facility];[address] | | LAB | | | | [address] | | | | | | [address] | | | | + + + + + + | ALP, | 121 (H)Comment: Testing | 35 - 115 U/L | EXTERNAL | | | External | performed at [facility];[address] | | LAB | | | | [address] | | | | | | [address] | | | | + + + + + + | AST | 20Comment: Testing | 10 - 45 U/L | EXTERNAL | | | | performed at [facility];[address] | | LAB | | | | [address];[place] | | | | | | [address] | | | | + + + + + + | ALT | 38Comment: Testing | 10 - 65 U/L | EXTERNAL | | | | performed at [facility];[address] | | LAB | | | | [address] | | | | | | [address] | | | | + + + + + + | Estimated | CALCULATION NOT | mL/min/1.73m2 | EXTERNAL | | | GFR | PERFORMED. RESULT NOT | | LAB | | | | VALID IF AGE LT 20 | | | | | | YEARS.Comment: Testing | | | | | | performed at [facility];[address] | | | | | | [address];[place], [place] | | | | | | [address] | | | | + + + [...]
--- OUTSIDE RECORDS SUMMARY | ~2019-12-25 | XMS | Encounter Summary ---
Demographics + + + | Address | [address] | | | [place] [address] | + + + | Home Phone [...] Providers + +------+ + | Care Asphalt Patcher Name | Role | Phone | [...] [address] [place] | | | | | [place], [place] | [place] [address] | | | | | [address] | [phone] | | | | | [phone] | | | +--------+ + + + [...]
--- OUTSIDE RECORDS SUMMARY | ~2019-12-25 | XMS | Encounter Summary ---
Demographics + + + | Address | [address] | | | [place] [address] | + + + | Home Phone [...] Providers + +------+ + | Care Air Valve Repairer Name | Role | Phone [...] [address] | | | | | ([facility]) | [address] | [address] | | | | | Anemia in | [place], [place] | [place], | | | | | ESRD | [address] | [place] [address] | | | | | (end-stage | Phone: | Phone: | | | | | renal | [phone] | [phone] | | | | | disease) | Fax: | Fax: | | | | | ([facility]) | [phone] | [phone] | | | | | Procedures | [...] Off-Site | [facility] [place] | [facility] | ESRD (end stage | | 2018 | Visit | NEPHROLOGY [address] | M, DO [address] | renal disease) ([facility]) | | | | [address] | [address] [place] | (Primary Dx) | | | | [place], [place] | [place] [address] | | | | | [address] | [phone] | | | | | [phone] | | | +--------+ + + + [...] week from records in [facility], per [facility] Nurse Man agerElisabeth RN. Her BP, PO4, and PTH are consisently high. 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
--- OUTSIDE RECORDS SUMMARY | ~2019-12-25 | XMS | Encounter Summary ---
Demographics + + + | Address | [address] | | | [place] [address] | + + + | Home Phone [...] | + + +---------+ + | Saundra aMrlowjonatan | ECON | Unknown | | + [...] + + | 10/17/ | Hospital | [facility] | [place], | SOB (shortness of | | 2019 - | Encounter | [facility] | MD [address] | breath); Pleural | | | | CARE FLOOR [address] | effusion on right; | | 10/20/ | | [address] | [place] [address] | ESRD needing | | 2019 | | [place], [place] | [phone] | dialysis ([facility]); End | | | | [address] | | stage renal disease | | | | [phone] | | (HCC) | +--------+ + + [...] + + +---------+ + + | B Hehjkqw-Z-Hwace | Take 1 tablet by | | [...] 10/19/182357 Date of Service: 10/19/182357 Status: Signed Site Medical Director: Vira Ford RN (Registered Nurse) No acute [...] 10/19/181827 Date of Service: 10/19/181826 Status: Signed Site Medical Director: Trent Jovel RN (Registered Nurse) Dialysis completed today 2.4L removed. Remains on fluid restriction. Medicated for pain x 2. End of shift review complete. Trent Jovel RN onver arturo Transaction, Provider Unknown - 10/19/2018 3:36 PM PDT Case Management by DORON Diallo at 10/19/181535 Author: DORON Daillo Service: (none) Author Type: Pond Worker Filed: 10/19/181536 Date of Service: 10/19/181535 Status: Signed Site Medical Director: DORON Diallo (Pond Worker) Discharge planning: Return home when medically ready for discharge. Pt is receiving dialysi s on MWF. Pt is currently on 4L O2, pt may need a home O2 evaluation at discharge. Antonio Carrasco MD - 10/19/2018 12:14 PM PDTFormatting of this note might be different from the orig inal. Progress Notes by Antonio Pabon MD at 10/19/18 5743 Author: Antonio Pabon MD Service: Nephrology Author Type: Physician Filed: 10/25/18 4933 Date of Service: 10/19/18 6122 Status: Addendum Site Medical Director: Antonio Pabon MD (Physician) Related Notes: Original Note by Antonio Pabon MD (Physician) filed at 10/25/18 4241 [facility] Service: NEPHROLOGY Progress Note Dara Weldon 23 y.o. [id number] 4465/[id number] female TIEN NICHOLSON 23-year-old female with [...] FISTULA; Surgeon: Rik Simon MD; Location: [facility] MAIN OR; Service: Vascula r; Laterality: Left; cephalic AV FISTULA REPAIR Left 03/07/2014 Procedure: AV FISTULA - GRAFT REPAIR/REVISION; Surgeon: Rik Simon MD; Location: [facility] MA IN OR; Service: Vascular; Laterality: Left; DECLOT GRAFT Left 03/07/2014 Procedure: GRAFT - DECLOT; Surgeon: iRk Simon MD; Location: [facility] MAIN OR; Service: Vas cular; Laterality: Left; DIALYSIS FISTULA CREATION N/A 04/08/2014 Procedure: DIALYSIS CATHETER - INSERTION; Surgeon: Rik Simon MD; Location: [facility] MAIN OR ; Service: Vascular; Laterality: N/A; tunneled catheter LAPAROSCOPIC PERITONEAL DIALYSIS CATHETER INSERTION x2 LAPAROSCOPIC PERITONEAL DIALYSIS CATHETER INSERTION Right 07/2013 current dialysis access MWF dialysis RENAL BIOPSY Left 2003 SUPERFICIALIZATION OF AV FISTULA Left 06/24/2014 Procedure: AV FISTULA - SUPERFICIALIZATION; Surgeon: Rik Simon MD; Location: [facility] OR; Service: Vascular; Laterality: Left; No prescriptions [...] Social History Narrative She lives in [facility]. She does not work. She has [...] ral space is punctured with an 5 [facility] centesis catheter. Fluid is aspirated without complication. [...] 1 VIEW (10/17/2018); CHEST TWO V IEWS 14244 (10/17/2018); FINDINGS: Compared to the prior examination [...] MR, severe TR.severe pulmonary hypertens ion Chest r-kde-gzhacqnxxmfw with pulmonary edema and large right pleural [...] earlier and charting completed later Dictation software, SpotBanks, used which may contain error for similar sounding words even af ter review. Personal communication requested for any clarification. Gerber Fernandez MD - 10/19/2018 7:48 AM PDT Progress Notes by Gerber Pearson MD at 10/19/18747 Author: Gerber Pearson MD Service: Hospitalist Author Type: Physician Filed: 10/19/18 0753 Date of Service: 10/19/18747 Status: Signed Site Medical Director: Gerber Pearson MD (Physician) [facility] Service: Hospitalist [...] with dyspnea Patient was recently discharged from [facility] on 08/23/2018. For full note, please see discha rge summary from hospitalist. In summary, the patient was admitted for noncardiogenic pulmo nary edema after thoracentesis. At that point, prior to admission, she was seen [facility] at [facility] in [place] on 08/21 where she underwent right th [...] BUN 90 on admission -History of a Burns Schnlein purpura -Last hemodialysis approximately 2 weeks [...] 10/19/18733 Date of Service: 10/19/18733 Status: Signed Site Medical Director: Vira Ford RN (Registered Nurse) No acute changes from shift assessment. VSS. Pt medicated for pain as requested and availab le. End of shift review and 24 hour chart check complete. onver arturo Transaction, Provider Unknown - 10/18/2018 5:01 PM PDT Case Management by DORON Diallo at 10/18/181700 Author: DORON Diallo Service: (none) Author Type: Pond Worker Filed: 10/18/181706 Date of Service: 10/18/181700 Status: Signed Site Medical Director: DORON Diallo (Pond Worker) Discharge planning: Return home when medically ready for discharge. Gerber Fernandez MD - 10/18/2018 7:46 AM PDT Progress Notes by Gerber Pearson MD at 10/18/18745 Author: Gerber Pearson MD Service: Hospitalist Author Type: Physician Filed: 10/18/18 0751 Date of Service: 10/18/1846 Status: Signed Site Medical Director: Gerber Pearson MD (Physician) [facility] Service: Hospitalist [...] with dyspnea Patient was recently discharged from [facility] on 08/23/2018. For full note, please see discha rge summary from hospitalist. In summary, the patient was admitted for noncardiogenic pulmo nary edema after thoracentesis. At that point, prior to admission, she was seen at the [facility] at [facility] in [place] on 08/21 where she underwent right th [...] BUN 90 on admission -History of a Burns Schnlein purpura -Last hemodialysis approximately 2 weeks [...] Notes by Antonio Pabon MD at 10/18/18 0725 Author: Antonio Pabon MD Service: Nephrology Author Type: Physician Filed: 10/25/182002 Date of Service: 10/18/18744 Status: Signed Site Medical Director: Antonio Pabon MD (Physician) [facility] Service: NEPHROLOGY Progress Note Dara Weldon 23 y.o. [id number] 4465/[id number] female [facility] Day: LOS: 1 day 23-year-old female [...] FISTULA; Surgeon: Rik Simon MD; Location: [facility] MAIN OR; Service: Vascula r; Laterality: Left; cephalic AV FISTULA REPAIR Left 03/07/2014 Procedure: AV FISTULA - GRAFT REPAIR/REVISION; Surgeon: Rik Simon MD; Location: [facility] IN OR; Service: Vascular; Laterality: Left; DECLOT GRAFT Left 03/07/2014 Procedure: GRAFT - DECLOT; Surgeon: Rik Simon MD; Location: [facility] MAIN OR; Service: Vas cular; Laterality: Left; DIALYSIS FISTULA CREATION N/A 04/08/2014 Procedure: DIALYSIS CATHETER - INSERTION; Surgeon: Rik Simon MD; Location: [facility] MAIN OR ; Service: Vascular; Laterality: N/A; tunneled catheter LAPAROSCOPIC PERITONEAL DIALYSIS CATHETER INSERTION x2 LAPAROSCOPIC PERITONEAL DIALYSIS CATHETER INSERTION Right 07/2013 current dialysis access MWF dialysis RENAL BIOPSY Left 2003 SUPERFICIALIZATION OF AV FISTULA Left 06/24/2014 Procedure: AV FISTULA - SUPERFICIALIZATION; Surgeon: Rik Simon MD; Location: [facility] MAIN OR; Service: Vascular; Laterality: Left; [...] Social History Narrative She lives in [facility]. She does not work. She has [...] QTC Calculation (Bezet) 469 ms Calculated P [place] 46 degrees Calculated R [place] 127 degrees Calculated T [place] 94 degrees Diagnosis Normal sinus rhythm Right [...] MR, severe TR.severe pulmonary hypertens ion Chest y-jek-utxekqhmzgia with pulmonary edema and large right pleural [...] earlier and charting completed later Dictation software, SpotBanks, used which may contain error for similar [...] 10/18/1853 Date of Service: 10/18/18650 Status: Signed Site Medical Director: Ronnie Vargas RN (Registered Nurse) Pt alert and oriented X 4. PRN pain med given for back pain. No other acute changes durin g shift. Chart check complete onver arturo Transaction, Provider Unknown - 10/17/2018 9:48 AM PDT Case Management by DORON Diallo at 10/17/18947 Author: DORON Diallo Service: (none) Author Type: Pond Worker Filed: 10/17/1854 Date of Service: 10/17/18947 Status: Signed Site Medical Director: DORON Diallo (Pond Worker) 10/17/18 09 Discharge Planning Evaluation Admitting Diagnosis (SOB) Readmission Other (comment) (Last admit 08/20/18) Living Arrangements Alone Support Systems Family members;Friends/neighbors Type of Residence Private residence House type Apartment Independent with ADL's Yes Independent with Mobility Yes Home Care Services No Caregiver after Discharge No Mental Status Oriented Prior functional status (Independent) Power of Deputy Register Of Deeds No Resources Financial concerns No Transportation issues No Patient/Family concerns No Prescription Plan Yes Name of Pharmacy ([facility] in [place]) Previous home health equipment No Anticipated Disposition Facility Type Home STUDENT RECORDS SPECIALIST CM met with pt and discussed discharge planning. Pt is a 23 y.o., female admitted for s hortness of breath. Pt resides alone in an apartment at [address], [address], [place] [address]. Pt reported that she has neighbor and friend support. Pt's mother, Thania cheung can be reached at and sister, Saundra can be reached at . Pt reported being independent with ADL's,, IADL's and mobility prior to this admission. Pt denied previous outpatient OT/PT services, home care services and home O2 prior to this admission. Pt reported that she received dialysis from [facility] on MWF prior to this admission . [...] 10/17/18743 Date of Service: 10/17/18743 Status: Signed Site Medical Director: [facility] (Pharmacist) Clinical Pharmacy Note: Renal Monitoring Ht [...] 0747 Date of Service: 10/17/18716 Status: Signed Site Medical Director: Gerber Pearson MD (Physician) [facility] Service: Hospitalist [...] with dyspnea Patient was recently discharged from [facility] on 08/23/2018. For full note, please see discha rge summary from hospitalist. In summary, the patient was admitted for noncardiogenic pulmo nary edema after thoracentesis. At that point, prior to admission, [facility] in [place] on 08/21 where she underwent right th [...] frail-appearing. Denies chest pain no fever Dr. aPbon has been consulted. I did discuss the case over the phone with patient's child and adolescent psychiatrist Dr. Mahmood, recommends medi oly management and [...] creatinine 14, BUN 90 -History of a Burns Schnlein purpura -Last hemodialysis approximately 2 weeks [...] 0610 Date of Service: 10/17/18515 Status: Signed Site Medical Director: Naresh Shelton MD (Physician) [facility] Service: Hospitalist Admission History & [...] with dyspnea Patient was recently discharged from [facility] on 08/23/2018. For full note, please see discha rge summary from hospitalist. In summary, the patient was admitted for noncardiogenic pulmo nary edema after thoracentesis. At that point, prior to admission, she was seen at [facility] at [facility] in [place] on 08/21 where she underwent right th [...] FISTULA; Surgeon: Rik Simon MD; Location: [facility] MAIN OR; Service: Vascula r; Laterality: Left; cephalic AV FISTULA REPAIR Left 03/07/2014 Procedure: AV FISTULA - GRAFT REPAIR/REVISION; Surgeon: Rik Simon MD; Location: [facility] IN OR; Service: Vascular; Laterality: Left; DECLOT GRAFT Left 03/07/2014 Procedure: GRAFT - DECLOT; Surgeon: Rik Simon MD; Location: [facility] MAIN OR; Service: Vas cular; Laterality: Left; DIALYSIS FISTULA CREATION N/A 04/08/2014 Procedure: DIALYSIS CATHETER - INSERTION; Surgeon: Rik Simon MD; Location: [facility] OR ; Service: Vascular; Laterality: N/A; tunneled catheter LAPAROSCOPIC PERITONEAL DIALYSIS CATHETER INSERTION x2 LAPAROSCOPIC PERITONEAL DIALYSIS CATHETER INSERTION Right 07/2013 current dialysis access MWF dialysis RENAL BIOPSY Left 2003 SUPERFICIALIZATION OF AV FISTULA Left 06/24/2014 Procedure: AV FISTULA - SUPERFICIALIZATION; Surgeon: Rik Simon MD; Location: [facility] MAIN OR; Service: Vascular; Laterality: Left; [...] Social History Narrative She lives in [facility]. She does not work. She has [...] Component Value Units Date/Time Brain natriuretic peptide [[id number]] (Abnormal) Collected: 10/17/18348 Updated: 10/17/18507 BRAIN NATRIURETIC PEPTIDE 1,151.26 (H) pg/mL Cardiac Panel [[id number]] (Abnormal) Collected: 10/17/18348 Updated: 10/17/18 050 WBC [...] Index UNABLE TO CALCULATE Troponin I, Lab [[id number]] (Abnormal) Collected: 10/17/18348 Specimen: Blood Updated: 10/17/18 [...] severe TR. severe pulmonary hypertensio n -Chest y-dmc-mqpovrofucrz with pulmonary edema and large right pleural [...] i n this encounter Procedure Notes Antonio aPbon MD - 10/17/2018 3:00 PM PDTFormatting of this note might be different from t he original. Procedures by Antonio Pabon MD at 10/17/18 1500 Author: Antonio Pabon MD Service: Nephrology Author Type: Physician Filed: 10/19/18 1700 Date of Service: 10/17/18 1500 Status: Signed Site Medical Director: Antonio Pabon MD (Physician) [facility] Service: NEPHROLOGY Dialysis Note Dara Weldon 23 y.o. [id number] 4465/[id number] female [facility] Day: LOS: 1 day 23-year-old female [...] FISTULA; Surgeon: Rik Simon MD; Location: [facility] MAIN OR; Service: Vascula r; Laterality: Left; cephalic AV FISTULA REPAIR Left 03/07/2014 Procedure: AV FISTULA - GRAFT REPAIR/REVISION; Surgeon: Rik Simon MD; Location: [facility] IN OR; Service: Vascular; Laterality: Left; DECLOT GRAFT Left 03/07/2014 Procedure: GRAFT - DECLOT; Surgeon: Rik Simon MD; Location: [facility] MAIN OR; Service: Vas cular; Laterality: Left; DIALYSIS FISTULA CREATION N/A 04/08/2014 Procedure: DIALYSIS CATHETER - INSERTION; Surgeon: Rik Simon MD; Location: [facility] OR ; Service: Vascular; Laterality: N/A; tunneled catheter LAPAROSCOPIC PERITONEAL DIALYSIS CATHETER INSERTION x2 LAPAROSCOPIC PERITONEAL DIALYSIS CATHETER INSERTION Right 07/2013 current dialysis access MWF dialysis RENAL BIOPSY Left 2003 SUPERFICIALIZATION OF AV FISTULA Left 06/24/2014 Procedure: AV FISTULA - SUPERFICIALIZATION; Surgeon: Rik Simon MD; Location: [facility] MAIN OR; Service: Vascular; Laterality: Left; [...] Social History Narrative She lives in [facility]. She does not work. She has [...] QTC Calculation (Bezet) 469 ms Calculated P [place] 46 degrees Calculated R [place] 127 degrees Calculated T [place] 94 degrees Diagnosis Normal sinus rhythm Right [...] ral space is punctured with an 5 [employer] centesis catheter. Fluid is aspirated without complication. [...] 1 VIEW (10/17/2018); CHEST TWO V IEWS 72423 (10/17/2018); FINDINGS: Compared to the prior examination [...] MR, severe TR.severe pulmonary hyperten arturo Chest d-fye-kdttvpkpdmcc with pulmonary edema and large right pleural [...] earlier and charting completed later Dictation software, SpotBanks, used which may contain error for similar [...] Filed: 10/18/18 2327 Date of Service: 10/17/18 1039 Status: Signed Site Medical Director: Antonio Pabon MD (Physician) [facility] Service: NEPHROLOGY CONSULT Note Dara Weldon 23 y.o. [id number]/[id number] female [facility] Day: LOS: 0 days Date of [...] FISTULA; Surgeon: Rik Simon MD; Location: [facility] MAIN OR; Service: Vascula r; Laterality: Left; cephalic AV FISTULA REPAIR Left 03/07/2014 Procedure: AV FISTULA - GRAFT REPAIR/REVISION; Surgeon: Rik Simon MD; Location: [facility] IN OR; Service: Vascular; Laterality: Left; DECLOT GRAFT Left 03/07/2014 Procedure: GRAFT - DECLOT; Surgeon: Rik Simon MD; Location: [facility] MAIN OR; Service: Vas cular; Laterality: Left; DIALYSIS FISTULA CREATION N/A 04/08/2014 Procedure: DIALYSIS CATHETER - INSERTION; Surgeon: Rik Simon MD; Location: [facility] MAIN OR ; Service: Vascular; Laterality: N/A; tunneled catheter LAPAROSCOPIC PERITONEAL DIALYSIS CATHETER INSERTION x2 LAPAROSCOPIC PERITONEAL DIALYSIS CATHETER INSERTION Right 07/2013 current dialysis access MWF dialysis RENAL BIOPSY Left 2003 SUPERFICIALIZATION OF AV FISTULA Left 06/24/2014 Procedure: AV FISTULA - SUPERFICIALIZATION; Surgeon: Rik Simon MD; Location: [facility] MAIN OR; Service: Vascular; Laterality: Left; [...] Social History Narrative She lives in [facility]. She does not work. She has [...] QTC Calculation (Bezet) 458 ms Calculated P [place] 33 degrees Calculated R [place] -22 degrees Calculated T [place] 92 degrees Diagnosis Sinus tachycardia Nonspecific T wave abnormality Abnormal ECG When compared with ECG of 28-JUN-2018 12:17, Previous ECG has undetermined rhythm, needs review This ECG contains Unconfirmed Interpretation Statements. See ED Record for Physician Inter pretation. Confirmed by MUSE READ ONLY, -COMPUTER ([id number]), editor school photograph Ankita, Daniela (18) on 10/17/2018 9:07:2 1 [...] severe TR. severe pulmonary hypertensio n Chest x-mpn-brqnxkrftzky with pulmonary edema and large right pleural [...] earlier and charting completed later Dictation software, SpotBanks, used which may contain error for similar [...] 10/17/18646 Date of Service: 10/17/18645 Status: Signed Site Medical Director: Eda Viera RN (Registered Nurse) Bedside report [...] 10/17/1848 Date of Service: 10/17/18614 Status: Addendum Site Medical Director: Eda Viera RN (Registered Nurse) Related Notes: [...] 10/17/18437 Date of Service: 10/17/18437 Status: Signed Site Medical Director: Celestina Felder RN (Registered Nurse) anaesthetic technician notified of placement on tele per orders. Celestina Felder RN 10/17/18437 onver arturo Transaction, Provider Unknown - 10/17/2018 4:01 AM PDT ED Notes by Laurie Geiger RN at 10/17/18400 Author: Laurie Geiger RN Service: (none) Author Type: Registered Nurse Filed: 10/17/18411 Date of Service: 10/17/18400 Status: Addendum Site Medical Director: Laurie Geiger RN (Registered Nurse) Related Notes: Original Note by Laurie Geiger RN (Registered Nurse) filed at 10/17/18 0 404 Patient presented to [facility] ER with SOB since Monday. She states [...] 0648 Date of Service: 10/17/18321 Status: Signed Site Medical Director: Vivek Teran MD (Physician) [facility] Department of Emergency Medicine 3:22 AM [...] FISTULA; Surgeon: Rik Simon MD; Location: [facility] MAIN OR; Service: Vascula r; Laterality: Left; cephalic AV FISTULA REPAIR Left 03/07/2014 Procedure: AV FISTULA - GRAFT REPAIR/REVISION; Surgeon: Rik Simon MD; Location: [facility] IN OR; Service: Vascular; Laterality: Left; DECLOT GRAFT Left 03/07/2014 Procedure: GRAFT - DECLOT; Surgeon: Rik Simon MD; Location: [facility] MAIN OR; Service: Vas cular; Laterality: Left; DIALYSIS FISTULA CREATION N/A 04/08/2014 Procedure: DIALYSIS CATHETER - INSERTION; Surgeon: Rik Simon MD; Location: [facility] OR ; Service: Vascular; Laterality: N/A; tunneled catheter LAPAROSCOPIC PERITONEAL DIALYSIS CATHETER INSERTION x2 LAPAROSCOPIC PERITONEAL DIALYSIS CATHETER INSERTION Right 07/2013 current dialysis access MWF dialysis RENAL BIOPSY Left 2003 SUPERFICIALIZATION OF AV FISTULA Left 06/24/2014 Procedure: AV FISTULA - SUPERFICIALIZATION; Surgeon: Rik Simon MD; Location: [facility] MAIN OR; Service: Vascular; Laterality: Left; [...] Social History Narrative She lives in [facility]. She does not work. She has [...] AM. Patient presented as a transfer from [facility] with complaint of raul rtness of [...] Given 10/17/18524) Records Reviewed Records unavailable Previous [facility] [place] visits for unrelated complaints. Labs & Radiology Results Laboratory Evaluation Results Procedure Component Value Ref Range Date/Time Brain natriuretic peptide [[id number]] (Abnormal) Collected: 10/17/18348 Order Status: Completed Updated: 10/17/18507 BRAIN NATRIURETIC PEPTIDE 1,151.26 (H) 0 - 100 pg/mL Cardiac Panel [[id number]] (Abnormal) Collected: 10/17/18348 Order Status: Completed Updated: [...] Index UNABLE TO CALCULATE Troponin I, Lab [[id number]] (Abnormal) Collected: 10/17/18 0349 Order Status: Completed [...] 10/17/18318 Date of Service: 10/17/18318 Status: Signed Site Medical Director: Celestina Felder RN (Registered Nurse) Bed: 20 Expected date: Expected time: Means of arrival: Comments: [place] Celestina Felder RN 10/17/18318 docume nted in this encounter Miscellaneous Notes Plan of Care - Conversion Transaction, Provider Unknown - 10/19/2018 11:23 PM PDT Plan of Care by Vira Ford RN at 10/19/182322 Author: Vira Ford RN Service: (none) Author Type: Registered Nurse Filed: 10/19/182322 Date of Service: 10/19/182322 Status: Signed Site Medical Director: Vira Ford RN (Registered Nurse) Problem: Safety [...] 10/19/181125 Date of Service: 10/19/181125 Status: Signed Site Medical Director: Trent Jovel RN (Registered Nurse) Problem: Pain [...] 10/19/1818 Date of Service: 10/19/1818 Status: Signed Site Medical Director: Vira Ford RN (Registered Nurse) Problem: Pain [...] 10/18/181002 Date of Service: 10/18/181002 Status: Signed Site Medical Director: Diana Palmer RN (Registered Nurse) Problem: Safety [...] 10/17/182336 Date of Service: 10/17/182336 Status: Signed Site Medical Director: Ronnie Vargas RN (Registered Nurse) Pain Goal: [...] in low, locked position at all times. [place] patient and family to hospital surroundings. Provide [...] 10/17/181051 Date of Service: 10/17/181051 Status: Signed Site Medical Director: Diana Palmer RN (Registered Nurse) Problem: Safety [...] | | | | | [facility] traceable | | | | | | equation.Testing | | | | | | performed at [facility], [address] | | | | | | [facility], | | | | | | [place] [address] | | | | + + + [...] CHEST 1 VIEW (10/17/2018); CHEST TWO VIEWS 22930 | | | (10/17/2018); FINDINGS: Compared to [...] VIEW | | (10/17/2018); CHEST TWO VIEWS 69070 (10/17/2018); | | FINDINGS: | | Compared [...] pleural space is punctured with an 5 [place] XATA catheter. | | | Fluid is aspirated [...] pleural space is punctured with an 5 [place] [employer] | | centesis catheter. Fluid is [...] | | at [facility], [address] | | | | | [facility], | | | | | | [place] [address] | | | | | |Testing performed at [facility], [facility] [place] [address] | | | | | | | [...] | | | | | [place] [address] | | | | + + + [...] | performed at [facility], [address] | | | | | | [address] [facility], | | | | | | [place] [address] | | | | + + + [...] | | | | [facility];[address] [place] [address] | | | | | | [facility];[place] [address] | | | | + + + [...] at [facility];[address] | | LAB | | | | [address];[place], [place] | | | | | | [address] | | | | + + + [...] | | | | [facility];[address] [place] [address] | | | | | | [facility];[place] [address] | | | | + + + [...] at [facility];[address] | | LAB | | | | [address]pe[address];[place] | | | | | | [address] | | | | + + + [...] | | performed at [facility] | | | | | | [facility];[place], [place] | | | | | | [address] | | | | + + + [...] | | | | [facility];[address] [facility] | | | | | | Blvd;[place] [address] | | | | + + + [...] | | | | [facility];[address] | | | | | | [facility];[place] [address] | | | | + + + [...] | LAB | | | | [facility];[address] [facility] | | | | | | [facility];[place] [address] | | | | + + + [...]
--- OUTSIDE RECORDS SUMMARY | ~2019-12-25 | XMS | Encounter Summary ---
Demographics + + + | Address | [address] | | | [place] [address] | + + + | Home Phone [...] Team Providers + +------+ + | Care University Registrar Name | Role | Phone | + [...] [address] | | | | | [place], [place] | [facility] [place] [address] | | | | | [address] | [phone] | | | | | [phone] | | | +--------+--------+ + + + [...]
--- OUTSIDE RECORDS SUMMARY | ~2019-12-25 | XMS | Encounter Summary ---
Demographics + + + | Address | [address] | | | [place] [address] | + + + | Home Phone [...] Providers + +------+ + | Care Loss Claim Clerk Name | Role | Phone | [...] + + | 02/21/ | Telephone | [facility] | Blake Chavarria | Procedure (Question) | | 2013 | | SURGERY [address] | MD Antonieta, FACS [address] | | | | | [place], [place] | [address] [facility] | | | | | [address] | [place] [address] | | | | | [phone] | [phone] | | | | | | | [...] want to spend all day Monday in [place]". Dr. Chavarria had instructed Alisons at her [...] only wanted to get dialysis at the [place] [facility] center which she stated does not do dialysis on Tuesdays. Deidra also stated that Dara does not want to go to the [place] [facility] [place] [facility] and feels she would rather miss a day of dialysis than go to another facility. I explained to Deidra that Elina ( the nurse in the dialysis center) was speaking with Ivy and arranging Yadi surgery and dialysis vi sit. I let her know that we are keeping Alisons surgery for Monday02/24/2014 and [facility] working with Dara on possible days and times that would work for her.Electro nically signed by Kimberly Candelario, Master of Arts at 02/21/2014 4:23 PM PSTTelephone Frederick Euceda RN - 02/21/2014 3:48 PM PSTPatient's dad called wanting to reschedule t he surgery from Monday. Called Fred at [phone] and spoke with Elina, the tech. Patient [...]
--- OUTSIDE RECORDS SUMMARY | ~2019-12-25 | XMS | Encounter Summary ---
Demographics + + + | Address | [address] | | | [place] [address] | + + + | Home Phone [...] | | | | | [place] [address] | | + + + + + | Thania Mallory | ECON | [address] | | | | | [place] [address] | | + + + + + | Deidra Weldon | ECON | [address] | | | | | [place] | | | | | [address] | | + + + + + Care Team Providers + +------+ + | Care Daub Color Mixer Name | Role | Phone | [...] 2005 | Registratio | Anil Elizondo | [phone] | | | | n | [address] Mailcode: [address] | | | | | | [place], [place] | | | | | | [address] | | | | | | [phone] | | | +--------+ + + + [...] Denise | | | | | | [place], [place] | | | | | | [address] | | | | | | [phone] | | | | | | | [...] | [facility] | | | PATHOLOGY | [facility] | | DEPARTMENT | | [...] | | | | | | Hospital, [place], | | | | | | [place],labeled [place] | | | | | | kidney [...] number | | | | | | [id number].[facility]/lab | | | | | | [...] wall | | | | | | rioglqunF2o: | | | | | | NegativeFibrinogen: [...] + + + + + | [facility] | [facility] | [place] [address] | | | PATHOLOGY | [address] | | | + + + + + | [facility] | [address] | [place] [address] | | | PATHOLOGY | [address] | | | + + + + + documented in this encounter Visit Diagnoses Not on filedocumented in this encounter"
--- OUTSIDE RECORDS SUMMARY | ~2019-12-25 | XMS | Encounter Summary ---
Demographics + + + | Address | [address] | | | [place] [address] | + + + | Home Phone [...] Team Providers + +------+ + | Care Pie Cutter Name | Role | Phone | [...] Provider Unknown | | | | | [place], [place] | [phone] | | | | | [address] | (Fax) | | | | | [phone] | | | +--------+ + + + [...]
--- OUTSIDE RECORDS SUMMARY | ~2019-12-25 | XMS | Encounter Summary ---
Demographics + + + | Address | [address] | | | [place] [address] | + + + | Home Phone [...] Author | [facility] | | | and [place] | + + + | Organization | [facility] | [...] Team Providers + +------+ + | Care Wind Farm Support Specialist Name | Role | Phone [...] [address] | | | | | [place], [place] | [place] [address] | | | | | [address] | [phone] | | | | | [phone] | | | +--------+ + + + [...]
--- OUTSIDE RECORDS SUMMARY | ~2019-12-25 | XMS | Encounter Summary ---
Demographics + + + | Address | [address] | | | [place] [address] | + + + | Home Phone [...] Providers + +------+ + | Care Mining Speculator Name | Role | Phone | + [...] [address] | | | | | [place], [place] | [place] [address] | | | | | [address] | [phone] | | | | | [phone] | | | +--------+ + + + [...] through the Nephrology Se ction at either [facility] or [facility]? 6. Anemia--will continue the EPO at [...]
--- OUTSIDE RECORDS SUMMARY | ~2019-12-25 | XMS | Encounter Summary ---
Demographics + + + | Address | [address] | | | [place] [address] | + + + | Home Phone [...] [address] [place] | [place] [address] | | | | | [address] [place], [place] | [phone] | | | | | [address] | | | | | | [phone] | | | +--------+ + + + [...]
--- OUTSIDE RECORDS SUMMARY | ~2019-12-25 | XMS | Encounter Summary ---
Demographics + + + | Address | [address] | | | [place] [address] | + + + | Home Phone [...] Team Providers + +------+ + | Care Battalion Chief Name | Role | Phone | [...] [address] | | | | | [place], [place] | [place] [address] | | | | | [address] | [phone] | | | | | [phone] | | | +--------+--------+ + + + [...]
--- OUTSIDE RECORDS SUMMARY | ~2019-12-25 | XMS | Encounter Summary ---
Demographics + + + | Address | [address] | | | [place] [address] | + + + | Home Phone [...] M, RN | | | | | [facility] [address] | | | | | | [place] | | | | | | [address] | | | | | | [phone] | | | +--------+ + + + [...]
--- OUTSIDE RECORDS SUMMARY | ~2019-12-25 | XMS | Encounter Summary ---
Demographics + + + | Address | [address] | | | [place] [address] | + + + | Home Phone [...] + +------+ + | Care X Ray Developing Machine Operator Name | Role | Phone [...] [address] | | | | | ([facility]) | [address] | [address] | | | | | Anemia in | [place], [place] | [place], | | | | | ESRD | [address] | [place] [address] | | | | | (end-stage | Phone: | Phone: | | | | | renal | [phone] | [phone] | | | | | disease) | Fax: | Fax: | | | | | ([facility]) | [phone] | [phone] | | | | | Procedures | [...] | 05/02/ | Off-Site | [facility] [place] | Jorje Camp | ESRD (end stage | | 2017 | Visit | NEPHROLOGY [address] | M, DO [address] | renal disease) ([facility]) | | | | [address] | [address] [place] | (Primary Dx) | | | | [place], [place] | [place] [address] | | | | | [address] | [phone] | | | | | [phone] | | | +--------+ + + + [...] She is see n on HD at [facility], with QB = 450. Unfortunately, she is consistently plagued by unexplained absenteeism from treatments. Despite having reliable transportation arranged b y the [employer]. She apparently still lacks meaningful plans for [...] HCO3 24, Ca++ 9.9, PO4 7.6, PTH 1/96, Alb 3.8, Hb 11.8, TSat. = 39 [...] interviewing her, given her tentative maturity cristiana banegas, she would be at moderate risk of [...] our office, myself or Dr. Ibarra. : Douglass Fina Joy M.D., Pediatric Nephrology, [facility] documented in t his encounter Plan of Treatment Not on filedocumented as of this encounter Visit Diagnoses + + | Diagnosis | + + | ESRD (end stage renal disease) (HCC) - Primary End stage renal disease | + + documented in this encounter"
--- OUTSIDE RECORDS SUMMARY | ~2019-12-25 | XMS | Clinical Summary ---
Demographics + + + | Address | [address] | | | [place] [address] | + + + | Home Phone [...] Providers + +------+ + | Care Train Controller Name | Role | Phone | [...] 9. | | Treated by Dr. Joy, apartment property manager. | + + + +---+ | ESRD [...] | | | Mary Bennett, | dialysis ([facility]) | | | | | MD Harper, [...] | | | | | | failure) ([facility]); | [...] Left: | SYNOVIS - | | | [id number] | | 0.8x8cm - [id number]: | | Arm | SYNO | | [...] | | | COVIDIEN | | | [id number] | | | | | -MATT 867 - | | | 3404 / | | | | | COVI | | | | | | | | | | | /[id number] | | | | | | | [...] R?MRN: | | | | | | [id number] | | | [id number] | | | riteri | | | [...] | | | St. | | | [place] | | | y | | | [...] | | | St. | | | [place] | | | y | | | [...] | | | St. | | | [place] | | | y | | | [...] Flags | | | | | | [place] | | | ED | | | Dispar | | | ity | | | Measur | | | e - | | | [place] | | | has | | | [...] | | | s. | | | [place] | | | | | | Health [...] | | | By: | | | [place] | | | | | | Health [...] | | | St. | | | [place] | | | y | | | [...] | | | St. | | | [place] | | | y H. | | [...] | | | St. | | | [place] | | | y H. | | [...] | | | St. | | | [place] | | | y H. | | [...] | | | St. | | | [place] | | | y H. | | [...] | | | St. | | | [place] | | | y H. | | [...] | | | St. | | | [place] | | | y H. | | [...] | | | [place] | | | [facility] [employer] | | | al | | | [...] | | | [place] | | | [facility] | | | al | | | [...] | | | [place] | | | [facility] | | | al | | | [...] | | | [place] | | | [facility] | | | al | | | [...] | | | MD | | | [facility] [employer] | | | al | | | [...] K/uL | LABORATORY | | | | [facility] | | | | | | [place] [address] | | | | + + + + + + + + | Specimen | + + | Blood | + + + + + + + | Performing | Address | City/State/Zipcode | Phone Number | | Organization | | | | + + + + + | [facility] | [address] | [place] [address] | [phone] | + + + + + Phosphorus [...] CALLED | 2.3 - 4.8 mg/dL | [facility] | | | | NURSING UNITREAD BACK | | LABORATORY | | | | RESULTS VERIFIEDFELIPEDA Douglas | | | | | | IN CDU AT 0440 BY | | | | | | TDTesting performed at | | | | | | KM;[address] | | | | | | [address];[place] [address] | | | | + + + + + + + + | Specimen | + + | Blood | + + + + + + + | Performing | Address | City/State/Zipcode | Phone Number | | Organization | | | | + + + + + | [facility] | [address] | [place] [address] | [phone] | + + + + + Magnesium [...] HOSPITAL | | | | performed at [facility];[address] | | LABORATORY | | | | [address];[place], [place] | | | | | | [address] | | | | + + + + + + + + | Specimen | + + | Blood | + + + + + + + | Performing | Address | City/State/Zipcode | Phone Number | | Organization | | | | + + + + + | [facility] | [address] | [place] [address] | [phone] | + + + + + Basic [...] | | | | | | MDRD IDMA traceable | | | | | | equation.Testing | | | | | | performed at [facility], [address] | | | | | | [facility], | | | | | | [place] [address] | | | | + + + + + + + + | Specimen | + + | Blood | + + + + + + + | Performing | Address | City/State/Zipcode | Phone Number | | Organization | | | | + + + + + | [facility] | [address] | [place] [address] | [phone] | + + + + + Troponin [...] (H)Comment: 0.04 | 0.00 - 0.04 | [facility] | | | | ng/mL or [...] at | | | | | | [facility];[address] [facility] | | | | | | [facility];[place] [address] | | | | + + + + + + + + | Specimen | + + | Blood | + + + + + + + | Performing | Address | City/State/Zipcode | Phone Number | | Organization | | | | + + + + + | [facility] | [address] | [place] [address] | [phone] | + + + + + Hepatitis B Surface Ag (10/14/2019 9:18 AM PDT) + + + + + + | Component | Value | Ref Range | Performed | Pathologist | | | | | At | Signature | + + + + + + | Hepatitis B | NegativeComment: Testing | Negative | [facility] | | | Surface Ag | performed at [facility], | | LABORATORY | | | | [address], | | | | | | [facility] [address] | | | | + + + + + + + + | Specimen | + + | Blood | + + + + + + + | Performing | Address | City/State/Zipcode | Phone Number | | Organization | | | | + + + + + | [facility] | [address] | [place] [address] | [phone] | + + + + + , Serum, Qual (10/14/2019 9:18 AM PDT) + + + + + + | Component | Value | Ref Range | Performed | Pathologist | | | | | At | Signature | + + + + + + | Preg, Serum | NEGATIVEComment: Testing | NEG | MISHEL | | | | performed at [facility];[address] | | LABORATORY | | | | [address];[place] | | | | | | [address] | | | | + + + + + + + + | Specimen | + + | Blood | + + + + + + + | Performing | Address | City/State/Zipcode | Phone Number | | Organization | | | | + + + + + | [facility] | [address] | [place] [address] | [phone] | + + + + + XR [...] Procedure Note | + + | Matt, [id number] - 10/14/2019 2:17 AM PDT | | [...] | | LABORATORY | | | | [facility];[address] [facility] | | | | | | Blvd;[place] [address] | | | | + + + + + + + + | Specimen | + + | Blood | + + + + + + + | Performing | Address | City/State/Zipcode | Phone Number | | Organization | | | | + + + + + | [facility] | [address] | [place] [address] | [phone] | + + + + + Comprehensive [...] | | | | | | MDRD IDMA traceable | | | | | | equation.Testing | | | | | | performed at [facility];[address] | | | | | | [address];[place], [place] | | | | | | [address] | | | | + + + + + + + + | Specimen | + + | Blood | + + + + + + + | Performing | Address | City/State/Zipcode | Phone Number | | Organization | | | | + + + + + | [facility] | [address] | [place] [address] | [phone] | + + + + + ECG [...] -COMPUTER | | | | | | (621), science editor Luciano, | | | | | | Daniela ([id number]) on | | | | | | [...] performed at [facility] | | | | | | [facility];[place], [place] | | | | | | [address] | | | | + + + [...] HOSPITAL LABORATORY | [address] | [place] [address] | [phone] | + + + + + from [...] +--------+ +---------+--------+ | MEDICARE | MEDICA | [id number] | 05/05/19 | [phone] | | Medica | | | RE | | 13-Pre | 5 | | re | | | PART A | | sent | | | | | | AND B | | | | | | + +--------+ +--------+ +---------+--------+ | MEDICARE | MEDICA | [id number] | 05/05/19 | [phone] | | Medica | | | RE | | 13-Pre | 5 | | re | | | PART A | | sent | | | | | | AND B | | | | | | + +--------+ +--------+ +---------+--------+ | [employer] | MODA | [id number] | | [phone] | | Medica | | MEDICAID HMO | HEALTH | | 019-Pr | 1 | | id | | | MDCD | | esent | | | | | | [place]MO [place] | | | | | | + +--------+ +--------+ +---------+--------+ | [employer] | MODA | [id number] | 03/06/19 | [phone] | | Medica [...] [place] | | | 2 (Home) | [address] | + +--------+ +--------+ + + | Dara Weldon | Person | Self | [birth year] | [address] | | | al/Fam | | 1994 | [phone] | [address] [place], [place] | | | [place] | | | 2 (Home) | [address] | + +--------+ +--------+ + + | Cory Weldon | Person | Father | [birth year] | [address] | | | al/Fam | | 1971 | [phone] | [place] [address] | | | [place] | | | 9 (Home) | | + +--------+ +--------+ + + Advance Directives + + + + + | Type | Date Recorded | Patient | Explanation | | | | Fine Arts Instructor | | + + + + + | Power of | 11/06/2018 7:27 | | | | Toll Test Desk Worker | PM | | | + + [...]
--- OUTSIDE RECORDS SUMMARY | ~2019-12-25 | XMS | Encounter Summary ---
Demographics + + + | Address | [address] | | | [place] [address] | + + + | Home Phone [...] | Author | [facility] | | | and [place] | + + + | Organization | [facility] | | [...] Team Providers + +------+ + | Care Deputy Chief Counsel Name | Role | Phone | [...] [place] | | | | | | [address] | | | | | | [phone] | | | +--------+ + + + [...]
--- OUTSIDE RECORDS SUMMARY | ~2019-12-25 | XMS | Encounter Summary ---
Demographics + + + | Address | [address] | | | [place] [address] | + + + | Home Phone [...] Providers + +------+ + | Care Bag Washer Name | Role | Phone | [...] | | CARE FLOOR [address] | [place] [address] | effusion on right; | | 07/24/ | | [address] | [phone] | Hypoxia; History of | | 2019 | | [place], [place] | | end stage renal | | | | [address] | | disease; ESRD on | | | | [phone] | | hemodialysis ([facility]); | | | | | | Anemia in ESRD | | | | | | (end-stage renal | | | | | | disease) ([facility]); | | | | | | Moderate to severe | | | | | | pulmonary | | | | | | hypertension ([facility]); | | | | | | Chronic right-sided | | | | | | heart failure ([facility]); | | | [...] 1306 Date of Service: 07/24/18905 Status: Signed Paper Testing Supervisor: Usha Martínez MD (Physician) [facility]: Hospitalist Discharge Summary Date of [...] renal disease on hemodialysis Monday and Monday (government professor Dr. 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 with bilateral pleural effusions and ascites status post thoracentesis 1.5 L removed transudative and 4 L ascitic fluid removed who presents to [facility] ER from [place] [facility] for sepsis likely seco ndary to [...] after discharge and to follow -up with government professor and sinter machine operator within 1 to 2 weeks [...] Rik Simon MD; Location: [facility] OR; Service: Vascular; Laterality: Left; DECLOT GRAFT Left 03/07/2014 Procedure: GRAFT - DECLOT; Surgeon: Rik Simon MD; Location: [facility] OR; Service: Vas cular; Laterality: Left; DIALYSIS FISTULA CREATION N/A 04/08/2014 Procedure: DIALYSIS CATHETER - INSERTION; Surgeon: Rik Simon MD; Location: [facility] OR ; Service: Vascular; Laterality: N/A; tunneled catheter LAPAROSCOPIC PERITONEAL DIALYSIS CATHETER INSERTION x2 LAPAROSCOPIC PERITONEAL DIALYSIS CATHETER INSERTION Right 07/2013 current dialysis access MWF dialysis RENAL BIOPSY RENAL BIOPSY Left 2003 SUPERFICIALIZATION OF AV FISTULA Left 06/24/2014 Procedure: AV FISTULA - SUPERFICIALIZATION; Surgeon: Rik Simon MD; Location: [facility] OR; Service: Vascular; Laterality: [...] PH Unknown 7.48 Fluid culture w/gram stain [[id number]] Collected: 07/21/18 1400 Order Status: Completed Lab Status: Preliminary result Updated: 07/24/18 0948 Specimen: Body Fluid from Thoracic Fluid Specimen Description THORACIC FLUID GRAM STAIN NO CELLS OR ORGANISMS SEEN CULTURE NO GROWTH 3 DAYS Fluid total protein (Body fluid) [[id number]] Collected: 07/21/18 1400 Order Status: Completed Lab Status: Final result Updated: 07/21/18 1650 Specimen: Body Fluid from Thoracentesis Fluid FLUID TOTAL PROTEIN 4.2 g/dL Comment: This is not a dehydrogenation operator head validated sample type for this method. No reference ra nges have been established. Testing performed at [facility], [address] [place] [address] FLUID TP SOURCE THORACENTESIS Comment: Testing performed at [facility];[address] [place] [address] Lactate dehydrogenase, body fluid [[id number]] Collected: 07/21/18 1400 Order Status: Completed Lab Status: Final result Updated: 07/21/18 1650 Specimen: Body Fluid from Thoracentesis Fluid FLUID LDH 148 U/L Comment: This is not a dehydrogenation operator head validated sample type for this method. No reference ra nges have been established. Testing performed at [facility], [address] [place] [address] pH, body fluid [[id number]] Collected: 07/21/18 1400 Order Status: Completed Lab Status: Final result Updated: 07/21/18 1426 Specimen: Body Fluid from Thoracentesis Fluid FLUID PH 7.48 Comment: Testing performed at [facility];[address] [place] [address] Blood Culture Set 1 [[id number]] Collected: 07/19/18 0853 Order Status: Completed Lab Status: Preliminary result Updated: 07/21/18 06 Specimen: Blood from Blood, peripheral draw Specimen Description BLOOD, PERIPHERAL DRAW SPECIAL REQUESTS RIGHT AC CULTURE NO GROWTH 2 DAYS Blood Culture Set 2 [[id number]] Collected: 07/19/18 0925 Order Status: Completed Lab Status: Preliminary result Updated: 07/21/18 06 Specimen: Blood from Blood, peripheral draw Specimen Description BLOOD, PERIPHERAL DRAW SPECIAL REQUESTS RT FOREARM CULTURE NO GROWTH 2 DAYS Respiratory Filmarray [[id number]] (Abnormal) Collected: 07/19/18 013 Order Status: Completed [...] by Molecular Methodology Comment: Testing performed at [facility], [address] [place] [address] MRSA by PCR [[id number]] Collected: 07/19/18133 Order Status: Completed Lab Status: Final result Updated: 07/19/18 0304 Specimen: Nasal from Nares(Nose) SOURCE NARES(NOSE) MRSA PCR NEGATIVE Comment: Testing performed at [facility];[address] [place] [address] Disposition: Home Condition: Stable Code Status: Full [...] [address], [address] [place] [address] Schedule an appointment as soon as possible for a visit in 1 week [facility] [address] [facility] [address] Schedule an appointment as soon as possible for a visit in 1 week [facility] [address] [facility] [address] Schedule an appointment as soon as [...] Date of Service: 07/24/18 1028 Status: Signed Paper Testing Supervisor: Romaine Saleh RN (Registered Nurse) Disposition: Home [...] Date of Service: 07/24/18 1016 Status: Signed Paper Testing Supervisor: Christina Aguilar RN (Registered Nurse) Discharge teaching given, prescriptions faxed by case reviewer to pt's pharmacy. Pt denies c oncern. Ride home at bedside. Pt getting dressed now for discharge. onver arturo Transaction, Provider Unknown - 07/24/2018 10:12 AM PDT Case Management by Romaine Saleh RN at 07/24/18 1012 Author: Romaine Saleh RN Service: (none) Author Type: Registered Nurse Filed: 07/24/18 1014 Date of Service: 07/24/18 1012 Status: Signed Paper Testing Supervisor: Romaine Saleh RN (Registered Nurse) Discharge planning: Met with pt, she indicated her friend is on her way to transport her from the hospital, no other needs identified. ADÁN signed and copy placed in chart. Pt's discharge prescriptions was faxed to [facility], Billie Braxton MD - 07/24/2018 9:09 AM PDTFormatting of this note might be different from th e original. Progress Notes by Billie Gupta MD at 07/24/18 0909 Author: Billie Gupta MD Service: Nephrology Author Type: Physician Filed: 07/24/18 0911 Date of Service: 07/24/18 0909 Status: Signed Paper Testing Supervisor: Billie Gupta MD (Physician) [facility] Followup -Nephrology I saw . Dara Louise today for follow-up. she is interviewed, examined and meds/ labs Have been reviewed. 23-year-old female with an extensive past medical history of IgA vasculitis, end-stage abdiel l disease on hemodialysis Monday and Monday (government professor Dr. Anguiano) , chronic c ombined heart failure, severe pulmonary hypertension, cor pulmonale, moderate mitral valve r egurgitation, severe tricuspid regurgitation and other chronic comorbidities who was dischar ged on 05/[address] [facility] with bilateral pleural effusions and ascites status post thoracente sis 1.5 L removed transudative and 4 L ascitic fluid removed who presents to [facility] ER f rom [place] [facility] for sepsis likely secondary to pneumonia. [...] Note by Minda Hudson RN at 07/24/18 0453 Author: Minda Hudson RN Service: (none) Author Type: Registered Nurse Filed: 07/24/18 0507 Date of Service: 07/24/18454 Status: Signed Paper Testing Supervisor: Minda Hudson RN (Registered Nurse) Pt reporting [...] 07/23/181832 Date of Service: 07/23/181825 Status: Signed Paper Testing Supervisor: Saundra Hartley RN (Registered Nurse) Pt continues [...] 07/23/181336 Date of Service: 07/23/181335 Status: Signed Paper Testing Supervisor: Sotero Reinoso MD (Physician) [facility]: Hospitalist Progress Note Hospital Day: LOS: 4 days Briefly, 23-year-old female with an extensive past medical history of IgA vasculitis, end-s tage renal disease on hemodialysis Monday and Monday (government professor Dr. Anguiano) co mplicated with thrombosis of vascular dialysis stent on Plavix, hypertension, asthma, chroni c combined heart failure, severe pulmonary hypertension, cor pulmonale, moderate mitral valv e regurgitation, severe tricuspid regurgitation and other chronic comorbidities who was disc harged on 05/[address] [facility] with bilateral pleural effusions and ascites status post thorace ntesis 1.5 L removed transudative and 4 L ascitic fluid removed who presents to [facility] E R from [place] [facility] for sepsis likely secondary to pulmonary [...] weeks after discharge and to follow-up with government professor and sinter machine operator within 1 to 2 weeks [...] treatment team notes reviewed. Principal Problem: Sepsis ([facility]) Active Problems: ESRD on hemodialysis (HCC) SOB (shortness of breath) Moderate to severe pulmonary hypertension (HCC) Non-rheumatic mitral regurgitation Dilated cardiomyopathy ([facility]) Acute hypoxemic respiratory failure ([facility]) Pleural effusion on right Chronic right-sided heart failure ([facility]) Hypertension Pancytopenia ([facility]) Chest pain Other ascites Troponin I above reference range Anemia in ESRD (end-stage renal disease) ([facility]) ASSESSMENT & PLAN 1. Sepsis: -Hemodynamically stable. -Noted at [facility] the patient was febrile with a [...] The patient does follow up with outpatient sinter machine operator (Dr. Mahmood) patient is tentative [...] 07/23/18926 Date of Service: 07/23/18917 Status: Signed Paper Testing Supervisor: Billie Gupta MD (Physician) [facility] Followup -Nephrology I saw Ms. Dara Louise today for follow-up. she is interviewed, examined and meds/ labs Have been reviewed. 23-year-old female with an extensive past medical history of IgA vasculitis, end-stage abdiel l disease on hemodialysis Monday and Monday (government professor Dr. Anguiano) , chronic c ombined heart failure, severe pulmonary hypertension, cor pulmonale, moderate mitral valve r egurgitation, severe tricuspid regurgitation and other chronic comorbidities who was dischar ged on 05/[address] [facility] with bilateral pleural effusions and ascites status post thoracente sis 1.5 L removed transudative and 4 L ascitic fluid removed who presents to [facility] for sepsis [...] 07/23/18622 Date of Service: 07/23/18622 Status: Signed Paper Testing Supervisor: Shannon Martell RN (Registered Nurse) No acute changes since shift assessment. Vital signs stable. Medicated for nausea x 1 with Zofran and x 1 with Phenergan. Medicated for itching x 1 with Benadryl 50 mg. Medicated for pain x 2 with Dilaudid 1 mg. End of shift audit and 24 hour chart check complete. Shannon Martell RN otero Lua MD - 07/22/2018 5:23 PM PDT Progress Notes by Sotero Reinoso MD at 07/22/181722 Author: Sotero Reinoso MD Service: Hospitalist Author Type: Physician Filed: 07/22/181726 Date of Service: 07/22/181722 Status: Signed Paper Testing Supervisor: Sotero Reinoso MD (Physician) [facility]: Hospitalist Progress Note Hospital Day: LOS: 3 days 23-year-old female with an extensive past medical history of IgA vasculitis, end-stage abdiel l disease on hemodialysis Monday and Monday (government professor Dr. Anguiano) complicated with thrombosis of vascular dialysis stent on Plavix, hypertension, asthma, chronic combine d heart failure, severe pulmonary hypertension, cor pulmonale, moderate mitral valve regurgi tation, severe tricuspid regurgitation and other chronic comorbidities who was discharged on 05/[address] [facility] with bilateral pleural effusions and ascites status post thoracentesis 1.5 L removed transudative and 4 L ascitic fluid removed who presents to [facility] ER from [facility] ER for sepsis likely secondary [...] (HCC) Acute hypoxemic respiratory failure ([facility]) Pleural effusion on right Chronic right-sided heart failure ([facility]) Hypertension Pancytopenia (HCC) Chest pain Other ascites Troponin I above reference range Anemia in ESRD (end-stage renal disease) ([facility]) ASSESSMENT & PLAN 1. Sepsis: -Hemodynamically stable. -Noted at [facility] the patient was febrile with a [...] The patient does follow up with outpatient sinter machine operator (Dr. Mahmood) patient is tentative [...] Note by Rafaela Patel RN at 07/22/18 1608 Author: Rafaela Patel RN Service: (none) Author Type: Registered Nurse Filed: 07/22/18 1620 Date of Service: 07/22/18 160 Status: Addendum Paper Testing Supervisor: Rafaela Patel RN (Registered Nurse) Related Notes: [...] Notes by Billie Gupta MD at 07/22/18 0976 Author: Billie Gupta MD Service: Nephrology Author Type: Physician Filed: 07/22/18 1221 Date of Service: 07/22/18 0934 Status: Addendum Paper Testing Supervisor: Billie Gupta MD (Physician) Related Notes: Original Note by KRISHNA Sahu (Advanced Registered Nurse Practitio ner) filed at 07/22/18 1051 [facility] Followup -Nephrology I saw . Dara Louise today for follow-up. she is interviewed, examined and meds/ labs Have been reviewed. 23-year-old female with an extensive past medical history of IgA vasculitis, end-stage abdiel l disease on hemodialysis Monday and Monday (government professor Dr. Anguiano) complicated with thrombosis of vascular dialysis stent on Plavix, hypertension, asthma, chronic combine d heart failure, severe pulmonary hypertension, cor pulmonale, moderate mitral valve regurgi tation, severe tricuspid regurgitation and other chronic comorbidities who was discharged on 05/[address] [facility] with bilateral pleural effusions and ascites status post thoracentesis 1.5 L removed transudative and 4 L ascitic fluid removed who presents to [facility] ER from [facility] ER for sepsis likely secondary [...] Intake/Output Summary (Last 24 hours) at 07/22/18 0979 Last data filed at 07/21/18 2302 Gross [...] 07/22/1856 Date of Service: 07/22/18653 Status: Signed Paper Testing Supervisor: Priti Priest RN (Registered Nurse) SBP 80-100's, [...] 07/21/181942 Date of Service: 07/21/181941 Status: Signed Paper Testing Supervisor: Francesca Bustos RN (Registered Nurse) No significant [...] Service: Hospitalist Author Type: Physician Filed: 07/22/18 0063 Date of Service: 07/21/18 1233 Status: Signed Paper Testing Supervisor: Sotero Reinoso MD (Physician) [facility]: Hospitalist Progress Note Hospital Day: LOS: 2 days 23-year-old female with an extensive past medical history of IgA vasculitis, end-stage abdiel l disease on hemodialysis Monday and Monday (government professor Dr. Anguiano) complicated with thrombosis of vascular dialysis stent on Plavix, hypertension, asthma, chronic combine d heart failure, severe pulmonary hypertension, cor pulmonale, moderate mitral valve regurgi tation, severe tricuspid regurgitation and other chronic comorbidities who was discharged on 05/[address] [facility] with bilateral pleural effusions and ascites status post thoracentesis 1.5 L removed transudative and 4 L ascitic fluid removed who presents to [facility] likely secondary to pneumonia. [...] PLAN 1. Sepsis: -Hemodynamically stable. -Noted at [facility] the patient was febrile with a [...] The patient does follow up with outpatient sinter machine operator (Dr. Mahmood) patient is tentative [...] Date of Service: 07/21/18 1024 Status: Signed Paper Testing Supervisor: Billie Gupta MD (Physician) [facility] Followup -Nephrology I saw Ms. Dara [...] 07/21/18614 Date of Service: 07/21/18614 Status: Signed Paper Testing Supervisor: Gris Hawk RN (Registered Nurse) Medicated for pain x1, nausea x1. No other acute changes noted. End of shift review complet e. onver arturo Transaction, Provider Unknown - 07/20/2018 7:44 PM PDT Nurse Progress Note by Francesca Bustos RN at 07/20/181943 Author: Francesca Bustos RN Service: (none) Author Type: Registered Nurse Filed: 07/20/181945 Date of Service: 07/20/181943 Status: Signed Paper Testing Supervisor: Francesca Bustos RN (Registered Nurse) No significant [...] 07/20/181624 Date of Service: 07/20/181624 Status: Signed Paper Testing Supervisor: Prashanth Estevez RN (Registered Nurse) Infection Prevention [...] completed Mycoplasma pneumoniae Droplet (DI) Prashanth Estevez [facility] [place]o Sotero parker MD - 07/20/2018 4:15 PM PDT Progress Notes by Sotero Reinoso MD at 07/20/18 0674 Author: Sotero Reinoso MD Service: Hospitalist Author Type: Physician Filed: 07/20/18 1804 Date of Service: 07/20/181614 Status: Signed Paper Testing Supervisor: Sotero Reinoso MD (Physician) [facility]: Hospitalist Progress Note Hospital Day: LOS: 1 day 23-year-old female with an extensive past medical history of IgA vasculitis, end-stage abdiel l disease on hemodialysis Monday and Monday (government professor Dr. Anguiano) complicated with thrombosis of vascular dialysis stent on Plavix, hypertension, asthma, chronic combine d heart failure, severe pulmonary hypertension, cor pulmonale, moderate mitral valve regurgi tation, severe tricuspid regurgitation and other chronic comorbidities who was discharged on 05/[address] [facility] with bilateral pleural effusions and ascites status post thoracentesis 1.5 L removed transudative and 4 L ascitic fluid removed who presents to [facility] ER from [facility] ER for sepsis likely secondary [...] hypertension (HCC) Non-rheumatic mitral regurgitation Dilated cardiomyopathy ([facility]) Acute hypoxemic respiratory failure ([facility]) Pleural effusion on right Chronic right-sided heart failure ([facility]) Hypertension Pancytopenia (HCC) Chest pain Other ascites Troponin I above reference range Anemia in ESRD (end-stage renal disease) ([facility]) ASSESSMENT & PLAN 1. Sepsis: -Hemodynamically stable. -Noted at [facility] the patient was febrile with a [...] The patient does follow up with outpatient sinter machine operator (Dr. Mahmood) patient is tentative [...] Management by Stephanie Hirsch RN at 07/20/18 6953 Author: Stephanie Hirsch RN Service: (none) Author Type: Registered Nurse Filed: 07/20/18 9739 Date of Service: 07/20/18 5332 Status: Signed Paper Testing Supervisor: Stephanie Hirsch RN (Registered Nurse) 07/20/18 1500 [...] Oriented Prior functional status independent Power of Emulsion Coater No Anticipated Discharge Plan Post Acute Care Needs None at this time Plan communicated to patient/family Yes Resources Financial concerns No Transportation issues No Patient/Family concerns No Prescription Plan Yes Name of Pharmacy [facility] Previous home health equipment [...] resources utilized / needed: Dialysis M[facility]F [facility] Assistance in transportation: pov w/friends Identification [...] 07/20/18901 Date of Service: 07/20/1850 Status: Signed Paper Testing Supervisor: KRISHNA Nice (Advanced Registered Nurse Practitioner) [facility]: Radiology Progress Note Patient evaluated [...] Date of Service: 07/20/18 0655 Status: Signed Paper Testing Supervisor: Nereida Edwards RN (Registered Nurse) VS stable. [...] 07/19/181925 Date of Service: 07/19/181925 Status: Signed Paper Testing Supervisor: Francesca Bustos RN (Registered Nurse) No significant [...] 07/19/181729 Date of Service: 07/19/181349 Status: Signed Paper Testing Supervisor: Antonio Pabon MD (Physician) [facility]: NEPHROLOGY Dialysis Note Dara Louise 23 y.o. [id number] female [facility] Day: LOS: 0 days 23-year-old female [...] FISTULA; Surgeon: Rik Simon MD; Location: [facility] MAIN OR; Service: Vascula r; Laterality: Left; cephalic AV FISTULA REPAIR Left 03/07/2014 Procedure: AV FISTULA - GRAFT REPAIR/REVISION; Surgeon: Rik Simon MD; Location: [facility] IN OR; Service: Vascular; Laterality: Left; DECLOT GRAFT Left 03/07/2014 Procedure: GRAFT - DECLOT; Surgeon: Rik Simon MD; Location: [facility] OR; Service: Vas cular; Laterality: Left; DIALYSIS FISTULA CREATION N/A 04/08/2014 Procedure: DIALYSIS CATHETER - INSERTION; Surgeon: Rik Simon MD; Location: [facility] OR ; Service: Vascular; Laterality: N/A; tunneled catheter LAPAROSCOPIC PERITONEAL DIALYSIS CATHETER INSERTION x2 LAPAROSCOPIC PERITONEAL DIALYSIS CATHETER INSERTION Right 07/2013 current dialysis access MWF dialysis RENAL BIOPSY RENAL BIOPSY Left 2003 SUPERFICIALIZATION OF AV FISTULA Left 06/24/2014 Procedure: AV FISTULA - SUPERFICIALIZATION; Surgeon: Rik Simon MD; Location: [facility] OR; Service: Vascular; Laterality: Left; Prescriptions [...] on file Social History Narrative Lives in [facility], 2 wks ago fell at home [...] earlier and charting completed later Dictation software, [employer], used which may contain error for similar [...] Date of Service: 07/19/18 1020 Status: Signed Paper Testing Supervisor: Francesca Bustos RN (Registered Nurse) No significant [...] Date of Service: 07/19/18 0801 Status: Addendum Paper Testing Supervisor: Sotero Reinoso MD (Physician) Related Notes: Original Note by Sotero Reinoso MD (Physician) filed at 07/19/18 2856 [facility]: Hospitalist Progress Note Hospital Day: LOS: 0 days 23-year-old female with an extensive past medical history of IgA vasculitis, end-stage abdiel l disease on hemodialysis Monday and Monday (government professor Dr. Anguiano) complicated with thrombosis of vascular dialysis stent on Plavix, hypertension, asthma, chronic combine d heart failure, severe pulmonary hypertension, cor pulmonale, moderate mitral valve regurgi tation, severe tricuspid regurgitation and other chronic comorbidities who was discharged on 05/[address] [facility] with bilateral pleural effusions and ascites status post thoracentesis 1.5 L removed transudative and 4 L ascitic fluid removed who presents to [facility] ER from [facility] ER for sepsis likely secondary [...] -Hemodynamically stable except for tachycardia. -Noted at [facility] the patient was febrile with a T-max [...] The patient does follow up with outpatient sinter machine operator (Dr. Mahmood) patient is tentative [...] 07/19/18129 Date of Service: 07/19/18129 Status: Signed Paper Testing Supervisor: Jae Gutierres RPH (Pharmacist) Renal Dosing Monitoring: [...] 07/29/182032 Date of Service: 07/18/182344 Status: Addendum Paper Testing Supervisor: Mary cMkay MD (Physician) Related Notes: Original Note by Mary Mckay MD (Physician) filed at 07/19/18312 [facility]: Hospitalist Admission History & Physical Date of Admission: 07/18/2018 Requesting Physician: , Emergency Department Reason for Admission: Sepsis. Possible pneumonia History Obtained From: patient, chart review, Quality of history: good CHIEF COMPLAINT: Patient presented to the Emergency Department by: Chief Complaint Chief Complaint Patient presents with Pneumonia transfer from [facility] pt was at dialysis, did not finish [...] syncytial virus bronchitis. The patient presented to [facility] ER with chief complaint of worsening cough, [...] was normal. The patient was transferred to [facility] for dialysis and treatment of pneumonia. Rest [...] GRAFT REPAIR/REVISION; Surgeon: Rki Simon MD; Location: [facility] IN OR; Service: Vascular; Laterality: Left; DECLOT GRAFT Left 03/07/2014 Procedure: GRAFT - DECLOT; Surgeon: Rik Simon MD; Location: [facility] OR; Service: Vas cular; Laterality: Left; DIALYSIS FISTULA CREATION N/A 04/08/2014 Procedure: DIALYSIS CATHETER - INSERTION; Surgeon: Rik Simon MD; Location: [facility] OR ; Service: Vascular; Laterality: N/A; tunneled catheter LAPAROSCOPIC PERITONEAL DIALYSIS CATHETER INSERTION x2 LAPAROSCOPIC PERITONEAL DIALYSIS CATHETER INSERTION Right 07/2013 current dialysis access MWF dialysis RENAL BIOPSY RENAL BIOPSY Left 2003 SUPERFICIALIZATION OF AV FISTULA Left 06/24/2014 Procedure: AV FISTULA - SUPERFICIALIZATION; Surgeon: Rik Simon MD; Location: [facility] OR; Service: Vascular; Laterality: [...] on file Social History Narrative Lives in [facility], [facility], 2 wks ago fell at home [...] previous visit (from the past 24 hour(s)). Ribbon Weaver: Authenticated by: René Noonan MD Report Date/Time: -- [id number] PROBLEM LIST Principal Problem: Sepsis (HCC) Active [...] Ordered procalcitonin le vels. Cultures sent from [facility] need to be followed. Ordered methicillin-resistant [...] Date of Service: 07/21/18 105 Status: Signed Paper Testing Supervisor: KRISHNA Nice (Advanced Registered Nurse Practitioner) Pre-procedure Diagnoses: 1. Pleural effusion [J90] Post-procedure Diagnoses: 1. Pleural effusion [J90] Procedures: 1. THORACENTESIS [CAF667 (Custom)] U/S guided thoracentesis performed on the [...] Filed: 07/20/18 0955 Date of Service: 07/20/18 0912 Status: Signed Paper Testing Supervisor: Billie Gupta MD (Physician) Procedure Orders: 1. Hemodialysis [[id number]] ordered by Billie Gupta MD at 07/20/18 0859 [facility] Hemo-Dialysis Procedure note Pt is seen on [...] curre ntly . QB 400 AP -230 Anesthesiology Tech 200 Constitutional: pt appears without distress. Cardiovascular: [...] Service: Nephrology Author Type: Physician Filed: 07/19/18 8490 Date of Service: 07/19/18939 Status: Signed Paper Testing Supervisor: Antonio Pabon MD (Physician) [facility] Service: NEPHROLOGY CONSULT Note Dara Louise 23 y.o. [id number] female [facility] Day: LOS: 0 days Date of Consultation: [...] at that time, chronic thrombocytopenia presented to [facility] emergency room with chief complaints of worsening [...] FISTULA; Surgeon: Rik Simon MD; Location: [facility] MAIN OR; Service: Vascula r; Laterality: Left; cephalic AV FISTULA REPAIR Left 03/07/2014 Procedure: AV FISTULA - GRAFT REPAIR/REVISION; Surgeon: Rik Simon MD; Location: [facility] IN OR; Service: Vascular; Laterality: Left; DECLOT GRAFT Left 03/07/2014 Procedure: GRAFT - DECLOT; Surgeon: Rik Simon MD; Location: [facility] MA[facility] OR; Service: Vas cular; Laterality: Left; DIALYSIS FISTULA CREATION N/A 04/08/2014 Procedure: DIALYSIS CATHETER - INSERTION; Surgeon: Rik Simon MD; Location: [facility] MAIN OR ; Service: Vascular; Laterality: N/A; tunneled catheter LAPAROSCOPIC PERITONEAL DIALYSIS CATHETER INSERTION x2 LAPAROSCOPIC PERITONEAL DIALYSIS CATHETER INSERTION Right 07/2013 current dialysis access MWF dialysis RENAL BIOPSY RENAL BIOPSY Left 2003 SUPERFICIALIZATION OF AV FISTULA Left 06/24/2014 Procedure: AV FISTULA - SUPERFICIALIZATION; Surgeon: Rik Simon MD; Location: [facility] MAIN OR; Service: Vascular; Laterality: [...] on file Social History Narrative Lives in [facility], 2 wks ago fell at home [...] earlier and charting completed later Dictation software, Convore, used which may contain error for similar sounding words even af ter review. Personal communication requested for any clarification. documented in this enco unter ED Notes Conversion Transaction, Provider Unknown - 07/19/2018 12:26 AM PDTFormatting of this note m ight be different from the original. ED Notes by Adina Kurtz at 07/19/1825 Author: Adina Kurtz Service: (none) Author Type: Rn Plastics Filed: 07/19/1825 Date of Service: 07/19/1825 Status: Signed Paper Testing Supervisor: Adina Kurtz (Rn Plastics) Called Lab to let them know no lab draw in room 4 Adina Kurtz 07/19/1825 Matt Beverly DO - 07/18/2018 11:06 PM PDTFormatting of this note might be different from the or iginal. ED Provider Notes by Matt Gabriel DO at 07/18/182305 Author: Matt Gabriel DO Service: -Emergency Author Type: Physician Filed: 07/19/18 0634 Date of Service: 07/18/182305 Status: Signed Paper Testing Supervisor: Matt Gabriel DO (Physician) [facility] Department of Emergency Medicine 11:06 PM History of Present Illness Patient Identification Dara Louise is a 23 y.o. female. Patient information was obtained from patient. History/Exam limitations: none. Patient presented to the Emergency Department by: Chief Complaint Chief Complaint Patient presents with Pneumonia transfer from [facility] pt was at dialysis, did not finish due to a cough. recieves dialysis M, W, F Pt went to [facility] at 5PM this evening where they [...] smokes weed but is transitio alexa to [employer] Pt denies smoking. PCP: TIEN NICHOLSON Past [...] FISTULA; Surgeon: Rik Simon MD; Location: [facility] MAIN OR; Service: Vascula r; Laterality: Left; cephalic AV FISTULA REPAIR Left 03/07/2014 Procedure: AV FISTULA - GRAFT REPAIR/REVISION; Surgeon: Rik Simon MD; Location: [facility] IN OR; Service: Vascular; Laterality: Left; DECLOT GRAFT Left 03/07/2014 Procedure: GRAFT - DECLOT; Surgeon: Rik Simon MD; Location: [facility] OR; Service: Vas cular; Laterality: Left; DIALYSIS FISTULA CREATION N/A 04/08/2014 Procedure: DIALYSIS CATHETER - INSERTION; Surgeon: Rik Simon MD; Location: [facility] OR ; Service: Vascular; Laterality: N/A; tunneled catheter LAPAROSCOPIC PERITONEAL DIALYSIS CATHETER INSERTION x2 LAPAROSCOPIC PERITONEAL DIALYSIS CATHETER INSERTION Right 07/2013 current dialysis access MWF dialysis RENAL BIOPSY RENAL BIOPSY Left 2003 SUPERFICIALIZATION OF AV FISTULA Left 06/24/2014 Procedure: AV FISTULA - SUPERFICIALIZATION; Surgeon: Rik Simon MD; Location: [facility] MAIN OR; Service: Vascular; Laterality: [...] on file Social History Narrative Lives in [facility], 2 wks ago fell at home [...] cough, chest pain Negative for chest pain, dnoujmocq-wv-[id number], cough GI: Negative for abdominal pain, nausea, [...] Value Ref Range Date/Time Septic Lactic Acid [[id number]] Collected: 07/19/18609 Order Status: Sent Updated: 07/19/18625 Septic Lactic Acid [[id number]] Collected: 07/19/18 0038 Order Status: Completed Updated: [...] 07/18/182243 Date of Service: 07/18/182243 Status: Signed Paper Testing Supervisor: Tiffanie Guzmán RN (Registered Nurse) Bed: 04 Expected date: Expected time: Means of arrival: Comments: Tiffanie Guzmán RN 07/18/182243 onver arturo Violetteaction, Provider Unknown - 07/18/2018 9:32 PM PDT ED Notes by Tiffanie Guzmán RN at 07/18/184 Author: Tiffanie Guzmán RN Service: (none) Author Type: Registered Nurse Filed: 07/18/182131 Date of Service: 07/18/182131 Status: Signed Paper Testing Supervisor: Tiffanie Guzmán RN (Registered Nurse) [facility] transfer Tiffanie Guzmán RN 07/18/182131 docume nted in this encounter Miscellaneous Notes Plan of Care - Conversion Transaction, Provider Unknown - 07/24/2018 3:05 AM PDT Plan of Care by Minda Hudson RN at 07/24/18304 Author: Minda Hudson RN Service: (none) Author Type: Registered Nurse Filed: 07/24/18304 Date of Service: 07/24/18304 Status: Signed Paper Testing Supervisor: Minda Hudson RN (Registered Nurse) Problem: Pain [...] of Care by Saundra Hartley RN at 07/23/181600 Author: Saundra Hartley RN Service: (none) Author Type: Registered Nurse Filed: 07/23/181600 Date of Service: 07/23/181600 Status: Signed Paper Testing Supervisor: Saundra Hartley RN (Registered Nurse) Problem: Safety [...] 07/22/182005 Date of Service: 07/22/182005 Status: Signed Paper Testing Supervisor: Shannon Martell RN (Registered Nurse) Problem: Safety [...] 1027 Date of Service: 07/22/181026 Status: Signed Paper Testing Supervisor: Rafaela Patel RN (Registered Nurse) Problem: Safety [...] 07/22/1816 Date of Service: 07/22/1816 Status: Signed Paper Testing Supervisor: Priti Priest RN (Registered Nurse) Problem: Pain [...] 07/21/18723 Date of Service: 07/21/18723 Status: Signed Paper Testing Supervisor: Francesca Bustos RN (Registered Nurse) Problem: Safety [...] 07/20/182057 Date of Service: 07/20/182057 Status: Signed Paper Testing Supervisor: Gris Hawk RN (Registered Nurse) Problem: Pain [...] aff aware when in need of relief. [facility] Problem: Safety Goal: Patient will be [...] 07/20/181713 Date of Service: 07/20/181713 Status: Signed Paper Testing Supervisor: Francesca Bustos RN (Registered Nurse) Problem: Daily [...] 07/20/18501 Date of Service: 07/20/18501 Status: Signed Paper Testing Supervisor: Nereida Edwards RN (Registered Nurse) Problem: Pain [...] 07/19/18815 Date of Service: 07/19/18815 Status: Signed Paper Testing Supervisor: Francesca Bustos RN (Registered Nurse) Problem: Psychosocial [...] 0655 Date of Service: 07/19/18352 Status: Signed Paper Testing Supervisor: Alana Prado RN (Registered Nurse) Pain Patient's [...] EXTERNAL | | | | performed at [facility];[address] | | LAB | | | | [address];[place], [place] | | | | | | [address] | | | | + + + [...] | | | | | performed at [facility];[address] | | | | | | [address];[place], [place] | | | | | | [address] | | | | + + + [...] | | | | | performed at [facility] | | | | | | [address] [facility];[place], [place] | | | | | | [address] | | | | + + + [...] EXTERNAL | | | | performed at [facility], [address] | | LAB | | | | [address], | | | | | | [place] [address] | | | | + + + [...] | | | | | performed at [facility], [address] | | | | | | [address], | | | | | | [place], [place] [address] | | | | + + + [...] | EXTERNAL LAB | | not a dehydrogenation operator head validated sample type for this method. No reference | | | ranges have been established. Testing performed at [facility], [address] | | | [place] [address] FLUID TP SOURCE | | | THORACENTESIS Testing performed at [facility];[address] | | | [address];[place] [address] | | + + + + +---------+ [...] EXTERNAL LAB | | is not a dehydrogenation operator head validated sample type for this method. No | | | reference ranges have been established. Testing performed at [facility], | | | [address] [facility] [place] [address] | | + + + + +---------+ [...] EXTERNAL LAB | | Testing performed at [facility];[address] [facility];[place] [address] | | + + + + +---------+ [...] EXTERNAL | | | | performed at [facility];[address] | | LAB | | | | [address];[place], [place] | | | | | | [address] | | | | + + + [...] EXTERNAL | | | | performed at [facility];[address] | | LAB | | | | [address];[place] | | | | | | [address] | | | | + + + [...] with arms on the | | | tfku-pzu-[id number] table. Ultrasound was utilized to tk an [...] | | | possibility of "sound alike" financial accountant errors, addition and/or | | | [...] at the bedside with arms on the cqaf-[id number]-axy | | table. Ultrasound was utilized to [...] recognition system. The possibility of "sound alike" financial accountant errors, | | addition and/or deletions [...] system. The possibility of "sound a like" financial accountant errors, addition and/or deletions may occur. [...] | | | | | | at [facility], [address] | | | | | | [facility], | | | | | | [place] [address] | | | | | |Testing performed at [facility], [address] [facility], [place] [address] | | | | | | | [...] | | | | | performed at [facility], [address] | | | | | | [address] [facility], | | | | | | [place] [address] | | | | + + + [...] EXTERNAL | | | | performed at [facility];[address] | mmol/L | LAB | | | | [address];[place], [place] | | | | | | [address] | | | | + + + [...] | | | Patient | performed at [facility];[address] | | LAB | | | | [address];[place], [place] | | | | | | [address] | | | | + + + [...] | | | | | performed at [facility] | | | | | | [address];[place], [place] | | | | | | [address] | | | | + + + [...] | | | Estimate | performed at [facility];[address] | | LAB | | | | [address];[place] | | | | | | [address] | | | | + + + [...] | | | | | performed at [facility] | | | | | | [address];[place], [place] | | | | | | [address] | | | | + + + [...] at | | | | | | [facility];[address] [place] [address] | | | | | | [facility];[place] [address] | | | | + + + [...] | | | | | performed at [facility];[address] | | | | | | [facility];[place], [place] | | | | | | [id number] ON 07/19 | | | | | [...] at | | | | | | [facility];[address] [facility] | | | | | | [facility];[place] [address] | | | | + + + [...] | | | | | | at [facility], [address] | | | | | | [facility], | | | | | | [place] [address] | | | | | |Testing performed at [facility], [address] [place] [address] | | | | | | | [...] | | | | | [place] [address] | | | | + + + [...] EXTERNAL | | | | performed at [facility], [address] | | LAB | | | | [address], | | | | | | [place] [address] | | | | + + + [...] | | | | | performed at [facility], [address] | | | | | | [address], | | | | | | [place] [address] | | | | + + + [...] NEGATIVE Testing | | | performed at [facility];[address] [facility];[place] [address] | | + + + + +---------+ [...] Testing performed at | | | [facility], [address] [place] [address] | | + + + + +---------+ [...] EXTERNAL | | | | performed at [facility];[address] | mmol/L | LAB | | | | [address];[place] | | | | | | [address] | | | | + + + [...] | | | | | | at [facility] [address] | | | | | | [address];[place] [address] | | | | + + + [...] at | | | | | | [facility];[address] [place] [address] | | | | | | [facility];[place] [address] | | | | + + + [...] | | | QUALITATIVE | performed at [facility];[address] | | LAB | | | | [address];[place] | | | | | | [address] | | | | + + + [...]
--- OUTSIDE RECORDS SUMMARY | ~2019-12-25 | XMS | Encounter Summary ---
Demographics + + + | Address | [address] | | | [place] [address] | + + + | Home Phone [...] Team Providers + +------+ + | Care Over Short And Damage Clerk Name | Role | Phone | [...] Encounter | CONVERSION | MD Emanuel [address] [facility] | | | | | [address]PART[address] | [address] | | | | [address] | [place], [place] | | | | | [place], [place] | [address] | | | | | [address] | [phone] | | | | | [phone] | | | +--------+ + + + [...]
--- OUTSIDE RECORDS SUMMARY | ~2019-12-25 | XMS | Encounter Summary ---
Demographics + + + | Address | [address] | | | [place] [address] | + + + | Home Phone [...] Team Providers + +------+ + | Care Structural Engineering Project Manager Name | Role | [...] [address] | | | | | [place], [place] | [place] [address] | | | | | [address] | [phone] | | | | | [phone] | | | +--------+ + + + [...] repeatedly declines. The entire dialysis team including log raft worker have had mult iple conversations with [...] attempt to continue to make efforts to college counselor her about lifestyle modification an d compliance modification. 2. Again, will continue to offer her counseling or evaluation by psychiatrist. I truly be lieve this would greatly benefit her. 3. I think her current Rx is accurate if she is willing to come to her treatments. 4. Will recheck her in 2 weeks. : [facility] documented in thi s encounter Plan of Treatment Not on filedocumented as of this encounter Visit Diagnoses Not on filedocumented in this encounter"
--- OUTSIDE RECORDS SUMMARY | ~2019-12-25 | XMS | Encounter Summary ---
Demographics + + + | Address | [address] | | | [place] [address] | + + + | Home Phone [...] + +------+ + | Care Director Of People Name | Role | Phone | [...] [address] [place] | [place] [address] | to return call to | | | | [address] [place] [address] | [phone] | complete intake | | | | [address] | | quest.) | | | | [phone] | | | +--------+ + + + [...] return my call to complete intake boo olve. documented in this enco unter Plan of Treatment Not on filedocumented as of this encounter Visit Diagnoses Not on filedocumented in this encounter"
--- OUTSIDE RECORDS SUMMARY | ~2019-12-25 | XMS | Encounter Summary ---
Demographics + + + | Address | [address] | | | [place] [address] | + + + | Home Phone [...] Providers + +------+ + | Care Railroad Supervisor Of Engines Name | Role | Phone | + [...] Dx); Panic disorder | | | | [place], [place] | | | | | | [address] | | | | | | [phone] | | | +--------+ + + + [...]
--- OUTSIDE RECORDS SUMMARY | ~2019-12-25 | XMS | Encounter Summary ---
Demographics + + + | Address | [address] | | | [place] [address] | + + + | Home Phone [...] Providers + +------+ + | Care Asphalt Plant Laborer Name | Role | Phone | + +------+ + PCP | Unavailable | + +------+ + Encounter Details +--------+ + + + + | Date | Type | Department | Care Team | Description | +--------+ + + + + | 07/31/ | Hospital | [facility] | Conversion | ESRD (end stage | | 2015 | Encounter | CENTER CV INTRA OP | Transaction, | renal disease) (HCC) | | | | [address] | Provider Unknown | | | | | [place], [place] | [phone] | | | | | [address] | | | | | | [phone] | Colten Hutchins MD | | | | | | [address] | | | | | | [place], [place] | | | | | | [address] | | | | | | | [...] 07/31/141620 Date of Service: 07/31/141619 Status: Signed Jig Filler: Mervat Harden RN (Registered Nurse) Pt meets d/c criteria. Site c/d/i and soft. Mother providing transportation home. Mervat Harden RN onver arturo Transaction, Provider Unknown - 07/31/2014 3:52 PM PDT Progress Notes by Mervat Harden RN at 07/31/141551 Author: Mervat Harden RN Service: (none) Author Type: Registered Nurse Filed: 07/31/14 155 Date of Service: 07/31/141551 Status: Signed Jig Filler: Mervat Harden RN (Registered Nurse) Pt tolerated dialysis catheter removal well. Vss. D/c instructions given and discussed pt. States understanding. Will d/c pt. In 30 mins. Mervat Harden RN docume nted in this encounter Procedure Notes Lawrence Hernández NP - 07/31/2014 3:52 PM PDT Procedures by KRISHNA Mariano at 07/31/141551 Author: KRISHNA Mariano Service: Radiology Author Type: Advanced Registered Nurse Practitioner Filed: 07/31/14 003 Date of Service: 07/31/141551 Status: Signed Jig Filler: KRISHNA Mariano (Advanced Registered Nurse Practitioner) Pre-procedure Diagnoses: 1. ESRD on hemodialysis (HCC) [585.6, V45.11] Post-procedure Diagnoses: 1. ESRD on hemodialysis (HCC) [585.6, V45.11] Procedures: 1. IR REMOVAL TUNNELED CATHETER [[id number] (Custom)] [facility] Service: Interventional Radiology Tunneled Dialysis Catheter Removal [...] PDT Consult* by KRISHNA Mariano at 07/31/14 8455 Author: KRISHNA Mariano Service: Radiology Author Type: Advanced Registered Nurse Practitioner Filed: 08/01/14 1325 Date of Service: 07/31/14 1894 Status: Signed Jig Filler: KRISHNA Mariano (Pamela Registered Nurse Bahman) Vascular [...] on 05/29/[address] Whaley here at [facility] due to poor function. Patient then had [...] dialysis access ([facility]) 2014 Past Surgical History: Past Surgical History Procedure Laterality Date Av fistula placement Renal biopsy Laparoscopic peritoneal dialysis catheter insertion x2 Abdominal surgery Av fistula repair Left 03/07/2014 Procedure: AV FISTULA - GRAFT REPAIR/REVISION; Surgeon: Rik Simon MD; Location: [facility] OR; Service: Vascular; Laterality: Left; Declot graft Left 03/07/2014 Procedure: GRAFT - DECLOT; Surgeon: Rik Simon MD; Location: [facility] MA[facility] OR; Service: Va scular; Laterality: Left; Av fistula placement Left 04/08/2014 Procedure: AV FISTULA; Surgeon: Rik Simon MD; Location: [facility] MA[facility] OR; Service: Vascul ar; Laterality: Left; cephalic Dialysis fistula creation N/A 04/08/2014 Procedure: DIALYSIS CATHETER - INSERTION; Surgeon: Rik Simon MD; Location: [facility] MA[facility] O R; Service: Vascular; Laterality: N/A; tunneled catheter Laparoscopic peritoneal dialysis catheter insertion Right 07/2013 current dialysis access MWF dialysis Superficialization of av fistula Left 06/24/2014 Procedure: AV FISTULA - SUPERFICIALIZATION; Surgeon: Rik Simon MD; Location: [facility] OR; Service: Vascular; Laterality: [...] Imaging Data: IR dialysis tunneled cath insert [[id number]] Status: Final result Study Result DARA WELDON IR DIALYSIS TUNNELED CATHETER INSERTION 05/29/2014 3:42 PM HISTORY: 19 years. Female. Patient with end-stage renal disease and poorly functioning right upper c hest subclavian central venous tunneled catheter. 585.6. PROCEDURE: 1. Sonography of the lower neck veins. 2. Sonographic guidance for access into the right internal jugular vein. 3. Placement of 19 cm, 14.5-Croatian dual-lumen tunneled palindrome hemodialysis catheter in the right upper chest with its tip in the upper right atrium. MEDICATIONS/RADIATION DOSE: Lidocaine 1% for local anesthesia, Versed 5 mg intravenous, Fentanyl 150 mcg intravenous, A ncef 2 g intravenous. Radiation dose 31 mGy. Fluoroscopy time 0.5 minutes. Intra-procedure s edation time 23 minutes. Appropriate physiologic monitoring, maintenance of adequate conscio us sedation and independent chcf supervision of the conscious sedation was perfor med throughout the procedure. FINDINGS: 1. Sonography of the lower neck veins revealed widely patent, compressible right internal j ugular vein. 2. Real-time visualization of the needle entry into the right internal jugular vein under s onography was noted. Image documenting the same was obtained and placed in patient records. 3. Upper chest radiograph shows dual-lumen, 14.5-Croatian, 19-cm, tunneled dialysis catheter with its tip [...] a micropuncture needle and exchanged for a 4-Croatian micropuncture sheath over a 0.0 18 wire. Skin in the infraclavicular region was infiltrated with 1% lidocaine and a 5-mm ski n incision was made. A 14.5-Croatian, dual-lumen, 19-cm tunneled hemodialysis catheter was sadia caren a subcutaneous tunnel using a metallic tunneler. The 4-Croatian sheath was exchanged for a 0.035, 3-mm J-wire with its tip in the right atrium under fluoroscopy guidance. The skin an d subcutaneous tract was dilated using at 12 and 14-Croatian facial dilators. A 15-Croatian peel -away sheath was placed over the [...] neck veins. 2. Successful placement of a 14.5-Croatian dual-lumen 19-cm tunneled hemodialysis catheter wi th its tip in the upper portion of the right atrium without incidence. 75679, 09246, 89417, 93148-37 Physical Examination: Filed Vitals: 07/31/14 1618 BP: [...] this | | | patient in the Hydroponics Worker holding area. I had a discussion with [...] met this patient | | in the Hydroponics Worker holding area. I had a discussion with [...]
--- OUTSIDE RECORDS SUMMARY | ~2019-12-25 | XMS | Encounter Summary ---
Demographics + + + | Address | [address] | | | [place] [address] | + + + | Home Phone [...] Providers + +------+ + | Care Director Motion Picture Name | Role | Phone | + [...] to | | | obtain one in [place]. I explained that we would have to [...] | | KIDNEY TRANSPLANT | [place] [address], | (Dara lvm so I | | | | [address] [place] | [place] [address] | called her back to | | | | [address] | [phone] | complete intake | | | | [address] | | questionnaire. She | | | | [phone] | | currently ingests | | | [...] | | | | | one in [place]. I | | | | | | [...] she would have to obtain one in [place]. I explained that we would have to [...]
--- OUTSIDE RECORDS SUMMARY | ~2019-12-25 | XMS | Encounter Summary ---
Demographics + + + | Address | [address] | | | [place] [address] | + + + | Home Phone [...] Team Providers + +------+ + | Care Registry Np Name | Role | Phone | + [...] [address] | | | | | [place], [place] | [place] [address] | | | | | [address] | [phone] | | | | | [phone] | | | +--------+ + + + [...]
--- OUTSIDE RECORDS SUMMARY | ~2019-12-25 | XMS | Encounter Summary ---
Demographics + + + | Address | [address] | | | [place] [address] | + + + | Home Phone [...] + +------+ + | Care Sales Representative M[employer] Name | Role | Phone | + [...] [address] | | | | | [place], [place] | [place] [address] | | | | | [address] | [phone] | | | | | [phone] | | | +--------+ + + + [...]
--- OUTSIDE RECORDS SUMMARY | ~2019-12-25 | XMS | Encounter Summary ---
Demographics + + + | Address | [address] | | | [place] [address] | + + + | Home Phone [...] Providers + +------+ + | Care Color Making Supervisor Name | Role | Phone [...] + + | 11/13/ | Telephone | [facility] | Silvia Rabago | DME (OXYGEN) | | 2019 | | [address] | [place] | | | | | [place] | | | | | | [address] | | | | | | [phone] | | | +--------+ + + + [...]
--- OUTSIDE RECORDS SUMMARY | ~2019-12-25 | XMS | Encounter Summary ---
Demographics + + + | Address | [address] | | | [place] [address] | + + + | Home Phone [...] Providers + +------+ + | Care Survey Field Technician Name | Role | Phone [...] [address] | | | | | [place], [place] | [facility] [address] | | | | | [address] | [phone] | | | | | [phone] | | | +--------+ + + + [...] progress note e-faxed to [facility], Lianna Joy MD, [facility] Renal Transplant Clinic on 11/29/13.Electronical ly signed by Marilyn Palumbo at 11/29/2013 3:02 PM Daniela Marquez MD - 11/22/2013 11 :03 AM PDT Comprehensive Dialysis Monthly Note Date of visit: 11/22/2013 Dialysis Clinic: [facility] Mode [...] Date Noted ESRD (end stage renal disease) ([facility]) Priority: High Note Last Updated: 11/22/2013 Due to Henoch-Schonlein purpura. On hemodialysis, started July 2013. Prior, was on peritoneal dialysis, started 2012. Access: R chest catheter. Re-referred to [facility] transplant in Oct 2013 by pediatric psychiatrist. Peritonitis, dialysis-associated (HCC) 07/29/2013 Note Last Updated: 07/29/2013 Due to MSSA. Had tunneled infection as well. PD catheter removed in July 2013. On Keflex till 08/01/13. History of Henoch-Schonlein purpura Note Last Updated: 07/29/2013 Diagnosed at age 10[address] Joy, pediatric psychiatrist. Anemia in ESRD (end-stage renal disease) (HCC) [...] had any infectious complication to date. -per [facility] transplant, AVF is not recommended at this [...] donor. Pt has been referred to [facility] in [address] Joy. -followed up with [facility] L[facility]na Joy, [facility] Pediatric Nephrology [facility] Renal transplant documented in this encounter Plan [...]
--- OUTSIDE RECORDS SUMMARY | ~2019-12-25 | XMS | Encounter Summary ---
Demographics + + + | Address | [address] | | | [place] [address] | + + + | Home Phone [...] Providers + +------+ + | Care Varnish Blender Name | Role | Phone | [...] [address] [place] | | | | | [place], [place] | [place] [address] | | | | | [address] | [phone] | | | | | [phone] | | | +--------+ + + + [...]
--- OUTSIDE RECORDS SUMMARY | ~2019-12-25 | XMS | Encounter Summary ---
Demographics + + + | Address | [address] | | | [place] [address] | + + + | Home Phone [...] + + | Author | [facility] | | | and [place] | + + + | Organization | [facility] | | | and [...] Providers + +------+ + | Care Senior Ui Ux Designer Name | Role | Phone | + +------+ + | Jonathan Alonso MD | PCP | | + +------+ + Reason for Visit + +--------+ + | Reason | Onset | Comments | | | Date | | + +--------+ + | Lab Results | 11/15/ | Cytology report | | | 2019 | | + +--------+ + Encounter Details +--------+ + + + + | Date | Type | Department | Care Team | Description | +--------+ + + + + | 11/15/ | Telephone | [facility] | George Torres RN | Lab Results | | 2019 | | [address] | | (Cytology report) | | | | [place], [place] | | | | | | [address] | | | | | | [phone] | | | +--------+ + + + [...] Encounter - George Torres RN - 11/15/2018 9:01 AM PDTSent finalized medical cy tology report to PCP for review. 9 :01 AM PDTdocumented in this encounter Plan of Treatment Not on filedocumented as of this encounter Visit Diagnoses Not on filedocumented in this encounter"
--- OUTSIDE RECORDS SUMMARY | ~2019-12-25 | XMS | Encounter Summary ---
Demographics + + + | Address | [address] | | | [place] [address] | + + + | Home Phone [...] Team Providers + +------+ + | Care Undraped Artist Model Name | Role | Phone | + [...] | | | | [address] | [place], [place] | [place], | | | | | stage renal | [address] | [place] [address] | | | | | disease | Phone: | Phone: | | | | | ([facility]) | [phone] | [phone] | | | | | Infection | Fax: | Fax: | | | | | and | [phone] | [phone] | | | | | inflammatory | [...] DO [address] | renal disease) ([facility]) | | | | [address] | [address] [place] | (Primary Dx); | | | | [place], [place] | [place] [address] | Anemia in ESRD | | | | [address] | [phone] | (end-stage renal | | | | [phone] | | disease) ([facility]) | [...] will be rechecked in 2 weeks. CC: [place] Fina Joy MD, [facility] [...]
--- OUTSIDE RECORDS SUMMARY | ~2019-12-25 | XMS | Encounter Summary ---
Demographics + + + | Address | [address] | | | [place] [address] | + + + | Home Phone [...] Team Providers + +------+ + | Care Miter Saw Operator Name | Role | Phone | [...] | | | | [address] | [place], [place] | [place], | | | | | stage renal | [address] | [place] [address] | | | | | disease | Phone: | Phone: | | | | | ([facility]) | [phone] | [phone] | | | | | Infection | Fax: | Fax: | | | | | and | [phone] | [phone] | | | | | inflammatory | [...] [place]) | | | | [address] | [address] [place] | (Primary Dx); | | | | [place], [place] | [place] [address] | Anemia in ESRD | | | | [address] | [phone] | (end-stage renal | | | | [phone] | | disease) ([facility]) [...] that she is working very closely with [facility] for an LRD allograft from her [...] excellent candidate from her visits here at [facility]. 6. Anemia--Will need to hold the EPO until the Hb is < 11.0 g/dl, while rechecking the Hb weekly. Plan: 1. Will continue to follow her PTH quarterly without Hectorol Rx. 2. Hold the EPO as above, until the Hb is < 11.0 g/dl. 3. Will try to connect with her Transplant Laser Beam Trim Operator at [facility], about re lative timeline of her allograft date. 4. She will follow with Dr. Ibarra in 2 weeks. CC: [place] Fina Joy MD, Renal Transplant Clinic, [facility] documented in thi s encounter Plan of Treatment Not on filedocumented as of this encounter Visit Diagnoses + + | Diagnosis | + + | ESRD (end stage renal disease) ([facility]) - Primary End stage renal disease | + + | Anemia in ESRD (end-stage renal disease) ([facility]) Anemia in chronic kidney disease | + + documented in this encounter"
--- OUTSIDE RECORDS SUMMARY | ~2019-12-25 | XMS | Encounter Summary ---
Demographics + + + | Address | [address] | | | [place] [address] | + + + | Home Phone [...] + | Author | [facility] | | | and [place] | + + + | Organization | [facility] | | | [...] + +------+ + | Care Help Desk Support Specialist Name | Role | Phone [...] | (Primary Dx) | | | | [place], [place] | [place] [address] | | | | | [address] | [phone] | | | | | [phone] | | | +--------+ + + + [...] of documents of Clinic Attendance here at [facility], with the explosives worker, Elisabeth Quijano RN. Outpatient Prescriptions Marked as [...] to succeed here at the Clinic in [place]. 4. Will recheck her in 2 weeks. : [place] Fina documented in thi s encounter Plan of Treatment Not on filedocumented as of this encounter Visit Diagnoses + + | Diagnosis | + + | ESRD (end stage renal disease) (HCC) - Primary End stage renal disease | + + documented in this encounter"
--- OUTSIDE RECORDS SUMMARY | ~2019-12-25 | XMS | Encounter Summary ---
Demographics + + + | Address | [address] | | | [place] [address] | + + + | Home Phone [...] Providers + +------+ + | Care Game Moderator Name | Role | Phone | + +------+ + PCP | Unavailable | + +------+ + Encounter Details +--------+ + + + + | Date | Type | Department | Care Team | Description | +--------+ + + + + | 06/24/ | Hospital | [facility] | Rik Simon MD | | | 2015 | Encounter | [facility] | [address] | | | | | [address] | [place], [place] | | | | | [place], [place] | [address] | | | | | [address] | [phone] | | | | | [phone] | | | +--------+ + + + [...] Date of Service: 06/24/141340 Status: Signed Machine Leather Trimmer: Merlin Carter RPH (Pharmacist) Clinical Pharmacy Note: Renal Monitoring Dara Weldon 19 y.o. female Ht Readings from Last 1 Encounters: 06/24/14 1.702 m (5' 7") (86 %*, Z = 1.09) * Growth percentiles are based on [facility] 2-20 Years data. Wt Readings from Last 1 Encounters: 06/24/14 99.6 kg (219 lb 9.3 oz) (99 %*, Z = 2.20) * Growth percentiles are based on [facility] 2-20 Years data. CREATININE Date Value Ref Range Status 06/24/2014 7.55* 0.50 - 1.00 mg/dL Final Testing performed at [facility];[address] [place] [address];[place] [address] CREATININE: 7.55 mg/dL ABNORMAL (06/24/14 1045) Estimated creatinine clearance - 14.7 mL/min Pharmacy dosing for renal function per Dr. Simon. Currently, there are no medications needing to be adjusted. Pharmacy will continue to monit or for changes in medication orders and in renal function and adjust accordingly. Merlin Carter RPh 06/24/2014 1:41 PM docume nted in this encounter H&P Notes Kimberly Farnz ARNP - 06/24/2014 7:36 AM PDTFormatting of this note might be different f rom the original. H&P by KRISHNA Agarwal at 06/24/14735 Author: KRISHNA Agarwal Service: Vascular Surgery Author Type: Advanced Registered Poonam sanchez Practitioner Filed: 06/24/14735 Date of Service: 06/24/14735 Status: Signed Machine Leather Trimmer: KRISHNA Agarwal (Advanced Registered Nurse Practitioner) [facility] Service: Vascular Surgery Pre-Operative History & [...] [facility]; Service: Vascular; Laterality: Left; Declot graft Left 03/07/2014 Procedure: GRAFT - DECLOT; Surgeon: Rik Simon MD; Location: [facility] OR; Service: Va scular; Laterality: Left; Av fistula placement Left 04/08/2014 Procedure: AV FISTULA; Surgeon: Rik Simon MD; Location: [facility] OR; Service: Vascul ar; Laterality: Left; cephalic Dialysis fistula creation N/A 04/08/2014 Procedure: DIALYSIS CATHETER - INSERTION; Surgeon: Rik Simon MD; Location: [facility] O R; Service: Vascular; Laterality: [...] by mouth daily. folic acid-vitamin b complex-vitamin e-kunsedxq-jdse (DIALYVITE) 3 MG TABS Take 1 table [...] Simon MD at 06/24/14 1300 Author: Rik Smion MD Service: Vascular Surgery Author Type: Physician Filed: 06/24/14 1302 Date of Service: 06/24/14 1300 Status: Signed Machine Leather Trimmer: Rik Simon MD (Physician) [facility] Service: Vascular Surgery Operative Note Pre-operative Diagnosis: ESRD and fistula too deep to access Post-operative Diagnosis: Same Procedure(s): Superficialization of left brachiocephalic fistula. Surgeon: Rik Simon MD Counting Machine Operator(s): KRISHNA Agarwal Anesthesia: General LMA Estimated [...] | LAB | | | | [address]vd;[place] [address] | | | | + + + + + + | Antibody | NEGATIVE | | EXTERNAL | | | Screen | | | LAB | | + + + + + + | Antibody | Testing performed at | | EXTERNAL | | | Screen | [facility];[address] | | LAB | | | | [address];[place] [address] | | | | + + + + + + | BB BAND | [id number] | | EXTERNAL | | | | | | LAB | | + + + + + + | BB BAND | Testing performed at | | EXTERNAL | | | | [facility];[address] | | LAB | | | | [address];[place] [address] | | | | + + + [...] at [facility];[address] | | | | | | [facility];[place], [place] | | | | | | [address] | | | | + + + [...] | | | QUALITATIVE | performed at [facility];[address] | | LAB | | | | [address];[place], [place] | | | | | | [address] | | | | + + + [...] [place] | | | | | | [address] | | | | + + + + + + | K | 4.3Comment: Testing | 3.5 - 4.9 | EXTERNAL | | | | performed at [facility];[address] | mmol/L | LAB | | | | [address];[place] | | | | | | [address] | | | | + + + + + + | Cl | 101Comment: Testing | 99 - 109 mmol/L | EXTERNAL | | | | performed at [facility];[address] | | LAB | | | | [address];[place] | | | | | | [address] | | | | + + + + + + | CO2 | 23Comment: Testing | 23 - 32 mmol/L | EXTERNAL | | | | performed at [facility];[address] | | LAB | | | | [address];[place] | | | | | | [address] | | | | + + + + + + | Anion Gap | 16Comment: Testing | 5 - 20 mmol/L | EXTERNAL | | | | performed at [facility];[address] | | LAB | | | | [address];[place] | | | | | | [address] | | | | + + + + + + | Glucose, | 84Comment: Testing | 65 - 99 mg/dL | EXTERNAL | | | Fasting | performed at [facility];[address] | | LAB | | | | [address];[place] | | | | | | [address] | | | | + + + + + + | BUN | 40 (H)Comment: Testing | 8 - 25 mg/dL | EXTERNAL | | | | performed at [facility];[address] | | LAB | | | | [address];[place] | | | | | | [address] | | | | + + + + + + | Creatinine | 7.55 (H)Comment: Testing | 0.50 - 1.00 | EXTERNAL | | | | performed at [facility];[address] | mg/dL | LAB | | | | [address];[place] | | | | | | [address] | | | | + + + + + + | BUN/Creatin | 5Comment: Testing | | EXTERNAL | | | ine Ratio | performed at [facility];[address] | | LAB | | | | [address];[place] | | | | | | [address] | | | | + + + + + + | Calcium | 9.8Comment: Testing | 8.5 - 10.5 | EXTERNAL | | | | performed at [facility];[address] | mg/dL | LAB | | | | [address];[place] | | | | | | [address] | | | | + + + [...] [place];[address] | | | | | | [facility];[place], [place] | | | | | | [address] | | | | + + + [...]
--- OUTSIDE RECORDS SUMMARY | ~2019-12-25 | XMS | Encounter Summary ---
Demographics + + + | Address | [address] | | | [place] [address] | + + + | Home Phone [...] Team Providers + +------+ + | Care Co Founder And Ceo Name | Role | Phone | [...] | 02/28/ | Telephone | [facility] | Blake Chavarria | Appointment (Post | | 2013 | | SURGERY [address] | MD Antonieta, FACS [address]) | | | | [address] [place], [place] | [facility] | | | | | [address] | [place] [address] | | | | | [phone] | [phone] | | | | | | | [...]
--- OUTSIDE RECORDS SUMMARY | ~2019-12-25 | XMS | Encounter Summary ---
Demographics + + + | Address | [address] | | | [place] [address] | + + + | Home Phone [...] Team Providers + +------+ + | Care Ladle Cleaner Name | Role | Phone | [...] [address] [place] | | | | | [place], [place] | [place] [address] | | | | | [address] | [phone] | | | | | [phone] | | | +--------+ + + + [...] patient wants to cancel appointment with Dr. Chavarria and follow up with Dr. Rik Simon at [facility] Vascular Surgery instead. Dr. Chavarria's office called [...]
--- OUTSIDE RECORDS SUMMARY | ~2019-12-25 | XMS | Encounter Summary ---
Demographics + + + | Address | [address] | | | [place] [address] | + + + | Home Phone [...] Author | [facility] | | | and [place] | + + + | Organization | [facility] | | | and [...] + +------+ + | Care Risk Management Specialist Name | Role | Phone [...] | | | | [address] | [place], [place] | [place], | | | | | stage renal | [address] | [place] [address] | | | | | disease | Phone: | Phone: | | | | | ([facility]) | [phone] | [phone] | | | | | Infection | Fax: | Fax: | | | | | and | [phone] | [phone] | | | | | inflammatory | [...] [place] | renal disease) ([facility]) | | | | [address] | [address] [place] | (Primary Dx); | | | | [place], [place] | [place] [address] | Anemia in ESRD | | | | [address] | [phone] | (end-stage renal | | | | [phone] | | disease) ([facility]) [...] recheck her Hb in one week. CC: [place] Fina Joy MD, [facility], [facility] Blake Chavarria MD, FACS documented in [...] stage renal disease) ([facility]) - Primary End stage renal disease | + + | Anemia in ESRD (end-stage renal disease) ([facility]) Anemia in chronic kidney disease | + + documented in this encounter"
--- OUTSIDE RECORDS SUMMARY | ~2019-12-25 | XMS | Encounter Summary ---
Demographics + + + | Address | [address] | | | [place] [address] | + + + | Home Phone [...] Team Providers + +------+ + | Care Domestic Housekeeper Name | Role | Phone | + [...] | (Primary Dx) | | | | [place], [place] | [place] [address] | | | | | [address] | [phone] | | | | | [phone] | | | +--------+ + + + [...]
--- OUTSIDE RECORDS SUMMARY | ~2019-12-25 | XMS | Encounter Summary ---
Demographics + + + | Address | [address] | | | [place] [address] | + + + | Home Phone [...] Team Providers + +------+ + | Care Infantry Weapons Crewmember Name | Role | Phone | [...] + + | 10/12/ | Emergency | [facility] | Vivek Teran, | ESRD needing | | 2019 - | | [facility] | [address] | dialysis (HCC) | | | | CARE FLOOR [address] | [place] [address] | (Primary Dx); | | 10/14/ | | [address] | [phone] | Pleural effusion; | | 2019 | | [place], [place] | | SOB (shortness of | | | | [address] | Mary Mckay MD | breath); Acute on | | | | [phone] | [address] | chronic congestive | | | | | [place] [address] | heart failure, | | | | | [phone] | unspecified heart | | | | | | failure type ([facility]); | | | | | Shelley Harper | Acute on chronic | | | | | MD Jimenez [address] | 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 | | | | | [place] [address] | (congestive heart | | | | | [phone] | failure) ([facility]); | | | | | | Acute on chronic | | | | | Joey Carlson | respiratory failure | | | | | Herbert Wellington MD | with hypoxia ([facility]); | | | | | [address] | Chest pain at rest; | | | | | [place] [address] | GERD with | | | | | [phone] | esophagitis; | | | | | | Hypertensive | | | | | | urgency; Moderate | | | | | | episode of recurrent | | | | | | major depressive | | | | | | disorder ([facility]); | | | | | | Moderate to severe | | | | | | pulmonary | | | | | | hypertension ([facility]); | | | | | | Noncompliance; [...] of 10/15/19-12:49 PDT Recent Radiology Results Chest m-dua-[id number] right pleural effusion with associated multisegmental right basilar atelectasis. Discharge Information: Follow up: Jonathan Alonso MD [address] [place] [address] In 1 week recheck [...] on of discharge summary. Joey Carlson MD, [facility] 12:49 PM PDT 10/15/2019 docum ented in this encounter Discharge Instructions Instructions Douglas Greenberg RN - 10/15/2019Encouraged compliance to Hemodialysis and medi cations, next schedule is tomorrow What is Coronavirus? The Novel Coronavirus 2019 (COVID-19) is a new virus strain that is spread mainly from pers ca-pg-qcehfc through respiratory droplets when an infected person [...] are not available, use an alcohol-based hand vehicle fuel systems converter with at least 60 % alcohol covering [...] and need to call 911, notify the electric arc furnace operator that you have or think you [...] COVID-19 symptoms, residents in nursing facilities or fci communities or home health, or those who [...] or preparing your food. ? Use hand vehicle fuel systems converter if soap and water are not available. [...] with soap and water or in the sanitary landfill operator/washer. ? Call ahead before visiting your doctor. [...] local public health website. CDC: COVID-19: https://www.cdc.gov/coronavirus/2019-ncov/index.html [place] Coronavirus Advisory: https://www.slaughter.org/uhmwdmpy-qli-dnnuavgy/coron avirus-advisory Virtual Visits Available https://virtual.Humansizedmne.org/ documented in this encounter Medications at Time [...] might be different fro m the original. [facility] Service: Hospitalist Admission History & Physical [...] tachycardia ventricular rate o f 100 normal IN interval normal QRS duration left axis deviation [...] dialysis access ([facility]) 2014 Congestive heart failure (HCC) ESRD (end stage renal disease) ([facility]) History of peritonitis, dialysis-associated 07/29/2013 Due to MSSA. Had tunneled infection as well. PD catheter removed in July 2013. On Keflex till 08/01/13. HSP (Henoch-Schonlein purpura) nephritis ([facility]) 1987 Hypertension Pericardial effusion without cardiac tamponade 11/07/2018 Past Surgical History: Procedure Laterality Date ABDOMEN SURGERY AV FISTULA REPAIR 02/24/2014 LEFT Radical Cephalic Fistula Creation; Laterality: Left; Surgeon: Blake Chavarria MD ; Location: [facility] MAIN OR AV FISTULA REPAIR Left 03/07/2014 Procedure: AV FISTULA - GRAFT REPAIR/REVISION; Surgeon: iRk Simon MD; Location: [facility] IN OR; Service: Vascular; Laterality: Left; biopsy of kidney age 10 DIALYSIS FISTULA CREATION 04/08/2014 Procedure: DIALYSIS CATHETER - INSERTION; Surgeon: Rik Simon MD; Location: [facility] MA[facility] OR ; Service: Vascular; Laterality: N/A; tunneled catheter.br hemodialysis catheter KIDNEY BIOPSY Left 2003 OTHER SURGICAL HISTORY LAPAROSCOPIC PERITONEAL DIALYSIS CATHETER INSERTION - x2 OTHER SURGICAL HISTORY Right 07/2013 LAPAROSCOPIC PERITONEAL DIALYSIS CATHETER INSERTION - current dialysis access MWF dialysis OTHER SURGICAL HISTORY Left 06/24/2014 SUPERFICIALIZATION OF AV FISTULA - Procedure: AV FISTULA - SUPERFICIALIZATION; Surgeon: Emanuel Simon MD; Location: [facility] MAIN OR; Service: Vascular; Laterality: Left; OTHER SURGICAL HISTORY Left 04/08/2014 AV FISTULA PLACEMENT - Procedure: AV FISTULA; Surgeon: Rik Simon MD; Location: [facility] OR; Service: Vascular; Laterality: Left; cephalic OTHER SURGICAL HISTORY Left 03/07/2014 DECLOT GRAFT - Procedure: GRAFT - DECLOT; Surgeon: Rik Simon MD; Location: [facility] MA[facility] OR ; Service: Vascular; [...] Patient not taking: Reported on 07/14/2019 10/23/18 Gebrer Pearson MD doxercalciferol (HECTOROL) 2 mcg/mL injection [...] file Gets together: Not on file Attends faith service: Not on file Active member of [...] brain tumor. Lives at home alone in [place] .independent with activities of daily living. no [...] Component Value Units Date/Time Coronavirus (COVID-19) NAAT [[id number]] Collected: 10/14/19 0050 Order Status: Completed Lab Status: Final result Updated: 10/14/19201 Specimen: Tissue from Nasopharynx SARS-CoV-2, NAAT (COVID-19) NEGATIVE Comment: This test was developed and its performance characteristics determined by [employer]. It has not been cleared or approved by the US FDA. This test has been authorized by FDA under an Emergency Use Authorization (EUA). Clinicians should be advised to consider a patients signs, symptoms, history, and results of other diagnostic tests when interpreting results. Testing performed at [facility];[address] [place] [address];[place] [address] Evaluation EKG@ 1:01 AM Normal sinus rhythm [...] 2:13 AM Old records ECHO Complete (Order #[id number]) on 07/18/2019 - Order Result History Report [...] Gupta MD - 10/15/2019 12:26 PM PDT [facility] Nephrology Note Date of Admission: 10/13/2019 [...] through the use of telemedicine. Telemedicine enables [facility] providers at different locations to [...] mendations requested from tele psychiatry. Originating Site [facility] Referral: Patient is referred by Dr Harper [...] care: Current OP MH counseling weekly via [employer]. Past psychiatric hospitalizations: None Suicide attempts: None [...] file Gets together: Not on file Attends faith service: Not on file Active member of [...] brain tumor. Lives at home alone in [place] .independent with activities of daily living. no [...] MPV 11.5 10/14/2019 DIFFTYPE AUTOMATED 10/14/2019 Imaging: @[id number]@ Mental Status Exam: Appearance:age appropriate Behavior:normal and [...] needed? Yes Tele-Psychiatry Social Work Risk Assessment [place] Suicide Severity Rating Scale (C-SSRS): Is the [...] not hesitate to call us through the [employer] [facility] if you have questions. Time / Billing A total of 25 minutes were spent face to face with the patient via interactive telehealth c ommunication. Greater than 50% of the patient face to face time were spent in counseling &/o r coordination of care regarding risk assessment and recommendations. Dara Monroe Shiraz Electronically Signed by: DORON Davis, [facility] 10/14/2019 5:09 PM PDT CONFIDENTIAL: DO NOT COPY WITHOUT WRITTEN PERMISSION TO RELEASE MENTAL HEALTH RECORDS Billie Bob MD - 10/14/2019 6:51 AM PDTAssociated Order(s): PROVIDER TO PROVIDER CONSULTFormatting o f this note might be different from the original. [facility] Nephrology Consult Note Date of Admission: [...] dialysis access ([facility]) 2014 Congestive heart failure ([facility]) ESRD (end stage renal disease) ([facility]) History of peritonitis, dialysis-associated 07/29/2013 Due to MSSA. Had tunneled infection as well. PD catheter removed in July 2013. On Keflex till 08/01/13. HSP (Henoch-Schonlein purpura) nephritis ([facility]) 1987 Hypertension Pericardial effusion without cardiac tamponade [...] might be different from the o riginal. [facility] Department of Emergency Medicine No flowsheet [...] in the beginning of September . Specialist: Maintenance Craftsman Dr. Anguiano PCP: Jonathan Alonso MD Past Medical History: Diagnosis Date Asthma Bacteremia due to Gram-positive bacteria 12/12/2018 Clotted dialysis access (HCC) 2014 Congestive heart failure (HCC) ESRD (end stage renal disease) ([facility]) History of peritonitis, dialysis-associated 07/29/2013 Due to MSSA. Had tunneled infection as well. PD catheter removed in July 2013. On Keflex till 08/01/13. HSP (Henoch-Schonlein purpura) nephritis ([facility]) 1988 Hypertension Pericardial effusion without cardiac tamponade 11/07/2018 Past Surgical History: Procedure Laterality Date ABDOMEN SURGERY AV FISTULA REPAIR 02/24/2014 LEFT Radical Cephalic Fistula Creation; Laterality: Left; Surgeon: Blake Chavarria MD ; Location: [facility] MAIN OR AV FISTULA REPAIR Left 03/07/2014 Procedure: AV FISTULA - GRAFT REPAIR/REVISION; Surgeon: Rik Simon MD; Location: [facility] OR; Service: Vascular; Laterality: Left; biopsy of kidney age 10 DIALYSIS FISTULA CREATION 04/08/2014 Procedure: DIALYSIS CATHETER - INSERTION; Surgeon: Rik Simon MD; Location: [facility] OR ; Service: Vascular; Laterality: N/A; tunneled catheter.br hemodialysis catheter KIDNEY BIOPSY Left 2003 OTHER SURGICAL HISTORY LAPAROSCOPIC PERITONEAL DIALYSIS CATHETER INSERTION - x2 OTHER SURGICAL HISTORY Right 07/2013 LAPAROSCOPIC PERITONEAL DIALYSIS CATHETER INSERTION - current dialysis access MWF dialysis OTHER SURGICAL HISTORY Left 06/24/2014 SUPERFICIALIZATION OF AV FISTULA - Procedure: AV FISTULA - SUPERFICIALIZATION; Surgeon: Emanuel Simon MD; Location: [facility] MAIN OR; Service: Vascular; Laterality: Left; OTHER SURGICAL HISTORY Left 04/08/2014 AV FISTULA PLACEMENT - Procedure: AV FISTULA; Surgeon: Rik Simon MD; Location: [facility] OR; Service: Vascular; Laterality: Left; cephalic OTHER SURGICAL HISTORY Left 03/07/2014 DECLOT GRAFT - Procedure: GRAFT - DECLOT; Surgeon: Rik Simon MD; Location: [facility] OR ; Service: Vascular; Laterality: Left; peritoneal [...] file Gets together: Not on file Attends faith service: Not on file Active member of [...] brain tumor. Lives at home alone in [place] .independent with activities of daily living. no [...] 2:33 AM I spoke with Dr. Gupta, Maintenance Craftsman, regarding the patients case. He recommends admissi on for hemodialysis, and he will see the patient in the morning. 2:50 AM Discussed the pt's case including pertinent hx, workup, and treatment with Dr. Mckay, [facility], who accepts the pt for admission. Will continue to monitor the [facility] until care is transferred to her [...] Procedure Component Value Ref Range Date/Time Phosphorus [[id number]] (Abnormal) Collected: 10/14/19102 Order Status: Completed Updated: 10/14/19322 Phosphorus 12.0 2.3 - 4.8 mg/dL Coronavirus (COVID-19) NAAT [[id number]] Collected: 10/14/1949 Order Status: Completed Specimen: Tissue from Nasopharynx Updated: 10/14/19201 SARS-CoV-2, NAAT (COVID-19) NEGATIVE NEG B Type Natriuretic Peptide [[id number]] (Abnormal) Collected: 10/14/19103 Order Status: Completed Specimen: Blood Updated: 10/14/19 0150 BNP 3,862.32 0 - 100 pg/mL Comprehensive Metabolic Panel [[id number]] (Abnormal) Collected: 10/14/19102 Order Status: Completed Specimen: [...] Estimated GFR 3 >60 mL/min/1.73m2 Troponin I [[id number]] (Abnormal) Collected: 10/14/19102 Order Status: Completed Specimen: Blood Updated: 10/14/19123 Troponin I 0.099 0.00 - 0.04 ng/mL CBC with Differential [[id number]] (Abnormal) Collected: 10/14/19102 Order Status: Completed Specimen: [...] Admit Clinical impression: ESRD needing dialysis (HCC) [[id number]] Clinical impression: Pleural effusion [[id number]] Admitting provider: PHYLLIS HOSPITALIST [[id number]] Expected patient class: Inpatient [101] Level of [...] patient this i s baseline. [facility] - Johanna Rush RN - 10/15/2019 4:27 AM PDTNotified by HELP DESK CONSULTANT that patient has a 9/10 headache . [...] RN at 10/15/2019 6:30 AM PDTPlan of [facility] - Joaquim Macias RN - 10/14/2019 10:22 [...] might be dif ferent from the original. [facility] Service: Hospitalist Progress Note Hospital Day: [...] for input(s): IRON, TIBC, PCTSAT, FERRITIN, TSH, [id number], FOLATE in the last 168 hours. No [...] Component Value Units Date/Time Coronavirus (COVID-19) NAAT [[id number]] Collected: 10/14/19 0050 Order Status: Completed Lab Status: Final result Updated: 10/14/19 020 Specimen: Tissue from Nasopharynx SARS-CoV-2, NAAT (COVID-19) NEGATIVE Comment: This test was developed and its performance characteristics determined by [employer]. It has not been cleared or approved by the [place] FDA. This test has been authorized by FDA under an Emergency Use Authorization (EUA). Clinicians should be advised to consider a patients signs, symptoms, history, and results of other diagnostic tests when interpreting results. Testing performed at [facility];[address] [place] [address];[place] [address] Results for orders placed or performed during [...] Confirmed by MUSE READ ONLY, -COMPUTER ([id number]), rewrite editor Jaymie Thakur ([id number]) on 07/15/2019 3:08 [...] PDT This entry has been created using magnify360 Speech Recognition software and [employer]. The entry has been reviewed and there [...] Groups: outpatient hemodialysis (specify) Community Agency Name: [facility] Anticipated Changes Related to Illness: [...] t home. Pt receives outpatient dialysis at [facility]. Pt admits to feeling depressed [...] R?MRN: | | | | | | [id number] | | | [id number] | | | riteri | | | [...] | | | St. | | | [place] | | | y | | | [...] | | | St. | | | [place] | | | y | | | [...] | | | St. | | | [place] | | | y | | | [...] Flags | | | | | | [place] | | | ED | | | Dispar | | | ity | | | Measur | | | e - | | | [place] | | | has | | | [...] | | | s. | | | [place] | | | | | | Health [...] | | | By: | | | [place] | | | | | | Health [...] | | | St. | | | [place] | | | y | | | [...] | | | St. | | | [place] | | | y H. | | [...] | | | St. | | | [place] | | | y H. | | [...] | | | St. | | | [place] | | | y H. | | [...] | | | St. | | | [place] | | | y H. | | [...] | | | St. | | | [place] | | | y H. | | [...] | | | St. | | | [place] | | | y H. | | [...] | | | [place] | | | Panel Assembler | | | al | | | [...] | | | [place] | | | Panel Assembler | | | al | | | [...] | | | [place] | | | Panel Assembler | | | al | | | [...] | | | [place] | | | Panel Assembler | | | al | | | [...] | | | MD | | | Panel Assembler | | | al | | | [...] at | | | | | | [facility];[address];[place] [address] | | | | + + + + + + + + | Specimen | + + | Blood | + + + + + + + | Performing | Address | City/State/Zipcode | Phone Number | | Organization | | | | + + + + + | [facility] | [address] | [place] [address] | [phone] | + + + + + Basic [...] GFR <60: | >60 | [facility] | | | GFR | [...] [place], | | | | | | [place] [address] | | | | + + + + + + + + | Specimen | + + | Blood | + + + + + + + | Performing | Address | City/State/Zipcode | Phone Number | | Organization | | | | + + + + + | [facility] | [address] | [place] [address] | [phone] | + + + + + Magnesium (10/15/2019 3:53 AM PDT) + + + + + + | Component | Value | Ref Range | Performed | Pathologist | | | | | At | Signature | + + + + + + | Magnesium | 2.3Comment: Testing | 1.7 - 2.4 mg/dL | [facility] | | | | performed at [facility];[address] | | LABORATORY | | | | [address];[place] | | | | | | [address] | | | | + + + + + + + + | Specimen | + + | Blood | + + + + + + + | Performing | Address | City/State/Zipcode | Phone Number | | Organization | | | | + + + + + | [facility] | [address] | [place] [address] | [phone] | + + + + + CBC [...] | | | Absolute | performed at [facility], [address] | LABORATORY | | | | [address], | | | | | | [place] [address] | | | | + + + + + + + + | Specimen | + + | Blood | + + + + + + + | Performing | Address | City/State/Zipcode | Phone Number | | Organization | | | | + + + + + | [facility] | [address] | [place] [address] | [phone] | + + + + + Hepatitis [...] | | Surface Ag | performed at [facility], | | LABORATORY | | | | [address], | | | | | | [place] [address] | | | | + + + + + + + + | Specimen | + + | Blood | + + + + + + + | Performing | Address | City/State/Zipcode | Phone Number | | Organization | | | | + + + + + | [facility] | [address] | [place] [address] | [phone] | + + + + + Troponin [...] at | | | | | | [facility];[address] [facility] | | | | | | Blvd;[place] [address] | | | | + + + + + + + + | Specimen | + + | Blood | + + + + + + + | Performing | Address | City/State/Zipcode | Phone Number | | Organization | | | | + + + + + | [facility] | [address] | [place] [address] | [phone] | + + + + + , Serum, Qual (10/14/2019 9:18 AM PDT) + + + + + + | Component | Value | Ref Range | Performed | Pathologist | | | | | At | Signature | + + + + + + | Preg, Serum | NEGATIVEComment: Testing | NEG | [facility] | | | | performed at [facility];[address] | | LABORATORY | | | | [address];[place] | | | | | | [address] | | | | + + + + + + + + | Specimen | + + | Blood | + + + + + + + | Performing | Address | City/State/Zipcode | Phone Number | | Organization | | | | + + + + + | [facility] | [address] | [place] [address] | [phone] | + + + + + XR [...] Procedure Note | + + | Cedric, [id number] - 10/14/2019 2:17 AM PDT | | [...] | 0 - 100 pg/mL | [facility] | | | | Testing performed at | | LABORATORY | | | | [facility];[address];[place] [address] | | | | + + + + + + + + | Specimen | + + | Blood | + + + + + + + | Performing | Address | City/State/Zipcode | Phone Number | | Organization | | | | + + + + + | [facility] | [address] | [place] [address] | [phone] | + + + + + Phosphorus (10/14/2019 1:03 AM PDT) + + + + + + | Component | Value | Ref Range | Performed | Pathologist | | | | | At | Signature | + + + + + + | Phosphorus | 12.0 ()Comment: CALLED | 2.3 - 4.8 mg/dL | [facility] | | | | TO TAYLOR Borden RN/ER AT | | LABORATORY | | | | 0323 BY MWREAD BACK | | | | | | RESULTS VERIFIEDTesting | | | | | | performed at [facility] | | | | | | [facility] | | | | | | [address] | | | | + + + + + + + + | Specimen | + + | | + + + + + + + | Performing | Address | City/State/Zipcode | Phone Number | | Organization | | | | + + + + + | [facility] | [address] | [place] [address] | [phone] | + + + + + Magnesium (10/14/2019 1:03 AM PDT) + + + + + + | Component | Value | Ref Range | Performed | Pathologist | | | | | At | Signature | + + + + + + | Magnesium | 2.7 (H)Comment: Testing | 1.7 - 2.4 mg/dL | [facility] | | | | performed at [facility];[address] | | LABORATORY | | | | [address];[place] | | | | | | [address] | | | | + + + + + + + + | Specimen | + + | Blood | + + + + + + + | Performing | Address | City/State/Zipcode | Phone Number | | Organization | | | | + + + + + | [facility] | [address] | [place] [address] | [phone] | + + + + + Troponin I (10/14/2019 1:03 AM PDT) + + + + + + | Component | Value | Ref Range | Performed | Pathologist | | | | | At | Signature | + + + + + + | Troponin I | 0.099 (H)Comment: 0.04 | 0.00 - 0.04 | [facility] | | | | ng/mL [...] at | | | | | | [facility];[address];[place] [address] | | | | + + + + + + + + | Specimen | + + | Blood | + + + + + + + | Performing | Address | City/State/Zipcode | Phone Number | | Organization | | | | + + + + + | [facility] | [address] | [place] [address] | [phone] | + + + + + Comprehensive [...] 28 | 10 - 65 U/L | [facility] | | | | | | LABORATORY | | + + + + + + | Estimated | 3 (L)Comment: GFR <60: | >60 | [facility] | | | GFR | [...] | | | | | performed at [facility];[address] | | | | | | [facility];[place], [place] | | | | | | [address] | | | | + + + + + + + + | Specimen | + + | Blood | + + + + + + + | Performing | Address | City/State/Zipcode | Phone Number | | Organization | | | | + + + + + | [facility] | [address] | [place] [address] | [phone] | + + + + + CBC [...] 0.06Comment: Testing | 0.00 - 0.10 | [facility] | | | Absolute | performed at [facility];[address] | LABORATORY | | | | [address];[place] | | | | | | [address] | | | | + + + + + + + + | Specimen | + + | Blood | + + + + + + + | Performing | Address | City/State/Zipcode | Phone Number | | Organization | | | | + + + + + | [facility] | [address] | [place] [address] | [phone] | + + + + + ECG [...] -COMPUTER | | | | | | (320), rewrite editor Luciano, | | | | | | Daniela ([id number]) on | | | | | | [...] | | | | | performed at [facility] | | | | | | [address];[place], [place] | | | | | | [address] | | | | + + + + + + + + | Specimen | + + | Tissue - Entire | | nasopharynx (body | | structure) | + + + + + + + | Performing | Address | City/State/Zipcode | Phone Number | | Organization | | | | + + + + + | [facility] | [address] | [place] [address] | [phone] | + + + + + documented [...]
--- OUTSIDE RECORDS SUMMARY | ~2019-12-25 | XMS | Encounter Summary ---
Demographics + + + | Address | [address] | | | [place] [address] | + + + | Home Phone [...] Team Providers + +------+ + | Care Tafe Teacher Name | Role | Phone | [...] | | | | Anemia in | [place], [place] | [place], | | | | | ESRD | [address] | [place] [address] | | | | | (end-stage | Phone: | Phone: | | | | | renal | [phone] | [phone] | | | | | disease) | Fax: | Fax: | | | | | ([facility]) | [phone] | [phone] | | | | | Procedures | | | | | | | [place] ESRD | | | | | | [...] | (Primary Dx) | | | | [place], [place] | [place] [address] | | | | | [address] | [phone] | | | | | [phone] | | | +--------+ + + + [...] to fall on the [place], IV? : Conway Fina Alonso MD, PhD documented in thi s encounter Plan of Treatment Not on filedocumented as of this encounter Visit Diagnoses + + | Diagnosis | + + | ESRD (end stage renal disease) (HCC) - Primary End stage renal disease | + + documented in this encounter
--- OUTSIDE RECORDS SUMMARY | ~2019-12-25 | XMS | Encounter Summary ---
Demographics + + + | Address | [address] | | | [place] [address] | + + + | Home Phone [...] Providers + +------+ + | Care Shrimp Pond Laborer Name | Role | Phone | [...] | | | [address]PART[address] [place] | [place] [address] | | | | | [place], [place] | [phone] | | | | | [address] | | | | | | [phone] | | | +--------+ + + + [...]
--- OUTSIDE RECORDS SUMMARY | ~2019-12-25 | XMS | Encounter Summary ---
Demographics + + + | Address | [address] | | | [place] [address] | + + + | Home Phone [...] Team Providers + +------+ + | Care Tankroom Tender Name | Role | Phone | [...] [address] | [place] | [facility]) | | | | [place], [place] | | | | | | [address] | | | | | | [phone] | | | +--------+ + + + [...]
--- OUTSIDE RECORDS SUMMARY | ~2019-12-25 | XMS | Encounter Summary ---
Demographics + + + | Address | [address] | | | [place] [address] | + + + | Home Phone [...] Providers + +------+ + | Care Mechanical Reliability Engineer Name | Role | Phone | [...] [address] [place] | | | | | [place], [place] | [place] [address] | | | | | [address] | [phone] | | | | | [phone] | | | +--------+ + + + [...]
--- OUTSIDE RECORDS SUMMARY | 2019-12-25 21:20 | XMS | Encounter Summary ---
Demographics + + + | Address | [address] | | | [place] [address] | + + + | Home Phone | | + + + | Preferred Language | Unknown | + + + | Marital Status | Single | + + + | Congregation Affiliation | Unknown | + + + | Race | White | + + + | Ethnic Group | Not or | + + + Author + + + | Author | [facility] | + + + | Organization | [facility] | + + + | Address | Unknown | + + + | Phone | Unavailable | + + + Support + + + + + | Name | Relationship | Address | Phone | + + + + + | Cory Weldon | ECON | [address] | | | | | [place] [address] | | + + + + + | Thania Mallory | ECON | [address] | | | | | [place] [address] | | + + + + + | Deidra Weldon | ECON | [address] | | | | | [place] | | | | | [address] | | + + + + + Care Team Providers + +------+ + | Care Rolloff Truck Driver Name | Role | Phone | + +------+ + | Jonathan Alonso MD | PCP | | + +------+ + Reason for Visit + + + | Reason | Comments | + + + | Social Work Waitlist | Ped [place] clinic check-in | | Update | | + + + Encounter Details +--------+ + + + + | Date | Type | Department | Care Team | Description | +--------+ + + + + | 05/24/ | Documentati | Transplant Social | Mariza Hsu | Social Work Waitlist | | 2017 | on | Work [address] | Update (Ped [place] | | | | [address] | [address] | clinic check-in) | | | | Dea Jane, Room | [place], [place] | | | | | [address] [place], [place] | [address] | | | | | [address] | | | | | | [phone] | | | +--------+ + + + + Social History + +-------+ +--------+------+ | Tobacco Use | Types | Packs/Day | Years | Date | | | | | Used | | + +-------+ +--------+------+ | Passive Smoke | | | | | | Exposure - Never | | | | | | Smoker | | | | | + +-------+ +--------+------+ + +---+---+---+ | Smokeless Tobacco: | | | | | Never Used | | | | + +---+---+---+ + + +---------+ + | Alcohol Use | Drinks/Week | oz/Week | Comments | + + +---------+ + | No | | | | + + +---------+ + + + + | Sex Assigned at | Date Recorded | | | | + + + | Not on file | | + + + documented as of this encounter Miscellaneous Notes Telephone Encounter - Aniyah Hsurobina Briggs - 05/27/2016 12:10 PM PDTPediatric Transplant Soc ial Work Evaluation - Update Purpose of Interview: Dara Weldon is a 21 year old female who met with SMILEY FANG on May 24, 2016 while at her outpatient peds renal clinic appt at [facility]. Also present in visit today is pt's mom, Jessie. Derick chapin has had SMILEY FANG WL updates done on August 18, 2015; May 12, 2015; 2014; Feb.07 4 plus follow up contacts on her support plan changes on June 04, 2014. Patient s joanaa l pre-listing psychosocial evaluation was done on 12-19-12. Pt is inactive on the [facility] wait -list due to several areas of unstable psychosocial factors including adherence with dialysi s care and active marijuana use. Current Living Situation: Dara reports she continues to live in her own apartment in [place], [place] with her 22 yo s isStyles. She is now dating a lydia named Jayjay whom she met in February of 2016. She s ays he is a good, supportive person and she is enjoying the relationship. Patient is not co mpletely happy with her location, it is not in a great neighborhood and ideally she would li ke to move, but no specific plans to relocate at this time. She says she and Jayjay would lik e to move "closer to [place]" due to him wanting to attend school as a diesel retrofit installer but they have made no concrete decisions. Patient says her sister is doing well and they are ge tting along; Michelle is working at [employer] where pt's dad works. Patient's education/employment/activities: Dara is not currently going to college and is not working. Parents' Employment: Patient says her dad and step-mom are working and doing fine. Jessie says she lost her forme r job due to the company "going under" and so began a new job this fall. It is going OK. Financial/Insurance Issues: Patient receives SSI of approximately $700 per month. She also receives SNAP. Patient say s her rent is low and she is able to cover it with her resources. She remains thoroughly we ll insured as a dual-eligible under Medicare (ESRD) and Medicaid (SSI). She has low OOP cos ts expected for direct medical care and prescriptions; she has some limited reimbursement co verage for medical travel/stay. Fundraising Plan: Patient has a [employer]ERR[employer] campaign to gather funds for transplant related expenses. Her mom is aw are of the details and helps with events and promoting contributions. They report having ac crued a balance of $5,000.00 in BERRY which they can access. They are not using any of it. T here is partial OHP allowance: Lodging $40 per night, $12 per day food, mileage .25 cents p er mile (current rates) but can often take time to obtain reimbursement. BERRY can help by aleyda xiaoing from her account additional funds for this stay. Dialysis/compliance update: Dara reports that dialysis is going pretty well lately and she has not had problems or di fficulty with any complications, infections, hospital or surgery or access issues as she had in the past year. She admits she occasionally misses runs, and that the "winter" was bad f or that. Her dialysis unit has given Peds Renal RN [place] Coordinator about the pattern of her poor attendance issues. Peds renal RN [place] Coordinator informed patient she also needs to att end all her dialysis runs between now and mid-July in order to be activated. Pt says she und erstands and agrees to go to all treatments. Dr. Joy says her current run report indica barry she is getting good dialysis and had adequate clearance. Dara is proud to report her last phosphorus was 4.5 which she was complimented on this achievement, reflecting she can d o it. SW encouraged her to continue to strive to show she is capable of keeping this in ran ge consistently as a reflection of how she may do after tx. Habits/Substance Use: Patient says she is smoking cigarettes, which her boyfriend does not like so she may try to quit. She has continued to smoke marijuana despite being told about one year ago that thi s is not acceptable for transplant listing policy. She keeps intending to quit and remain f ree of marijuana for one month at which point she is to call Peds Renal [place] RN Coordinator to arrange three consecutive, random drug screens as evidence of her abstinence in order to be active on the waiting list per policy of CTS at [facility]. Pt says today that she thinks she c an be ready to do these in the next couple months. RN met with her in clinic appointment to day and informed her that she was at the point of needing a time limit set on this effort wh ich has not yet been realized. RN informed patient that if patient did not call her by mid- July 2016 with readiness to begin the drug screens then she would be de-listed. That process and the re-referral process was also described. Pt states she understands. Patient's Mood/Adjustment: Dara denies having problems or concerning symptoms with her mood. Patient denies experie ncing any SA/SI; denies impact on her daily functioning. Mood/affect appropriate today. Post Hospital Care Plan: Patient lists her mother Thania as primary support. Any details will need to be verified by [place] SW when she is closer to being made active on the WL. Thania says she is available t o support her daughter in recovery. Plan: Patient remains at elevated risk for non-adherence due to age and on-going difficulty of di alysis attendance/non-compliance and active use of marijuana despite requirement and intenti on to quit. She is in a stable living situation in own apartment and has made notable progr ess in getting her phosphorous level within range. Family has been successful in reaching g oal with [employer] campaign. Patient will need to complete a new Planning Ahead Form onc e she is completing steps for activation on wait-list. Pt's case will be discussed with peds renal transplant team. Appears she should remain tyesha ctive until the above psychosocial issues addressed. Confirmed patient has SW direct phone number in her phone; she will call SW with any updates and [place] SW will check in w/pt & family on progress in 3 months at next clinic appt in August 2016. If patient is unsuccessful in rylan ing adequate compliance with above detailed requirements she will be de-listed at that time. (mid-July 2016). DORON Ko, OPERATIONS ADMINISTRATIVE ASSISTANT Pediatric Renal Transplant [place] pg. #[phone] documented in this en counter Plan of Treatment +--------+ + + + + | Date | Type | Specialty | Care Team | Description | +--------+ + + + + | 05/04/ | Hospital | Adult Acute Care | El Starr MD | | | 2022 | Encounter | | [address] | | | | | | [place], [place] | | | | | | [address] | | | | | | [phone] | | | | | | | | +--------+ + + + + documented as of this encounter Visit Diagnoses Not on filedocumented in this encounter
--- OUTSIDE RECORDS SUMMARY | 2019-12-25 21:20 | XMS | Encounter Summary ---
Demographics + + + | Address | [address] | | | [place] [address] | + + + | Home Phone | | + + + | Preferred Language | Unknown | + + + | Marital Status | Single | + + + | Lutheran Affiliation | Unknown | + + + | Race | White | + + + | Ethnic Group | Not or | + + + Author + + + | Author | [facility] | + + + | Organization | [facility] | + + + | Address | Unknown | + + + | Phone | Unavailable | + + + Support + + + + + | Name | Relationship | Address | Phone | + + + + + | Cory Weldon | ECON | [address] | | | | | [place] [address] | | + + + + + | Thania Mallory | ECON | [address] | | | | | [place] [address] | | + + + + + | Deidra Weldon | ECON | [address] | | | | | [place] | | | | | [address] | | + + + + + Care Team Providers + +------+ + | Care Electric Range Assembler Name | Role | Phone | + +------+ + | Jonathan Alonso MD | PCP | | + +------+ + Reason for Visit +--------+--------+ + | Reason | Onset | Comments | | | Date | | +--------+--------+ + | Other | 05/25/ | | | | 2016 | | +--------+--------+ + Encounter Details +--------+ + + + + | Date | Type | Department | Care Team | Description | +--------+ + + + + | 05/25/ | Telephone | Pediatric | Sudhakar Joy | Other | | 2016 | | Nephrology at | MD Emanuel [address] | | | | | [place] | [address] | | | | | [facility] | [place], [place] | | | | | [address] | [address] | | | | | [place] | [phone] | | | | | [facility], | | | | | | [address] [place] [address] | | | | | | [place], [place] | | | | | | [address] | | | | | | [phone] | | | +--------+ + + + [...] + + documented as of this encounter Plan of Treatment +--------+ + + + + | Date | Type | Specialty | Care Team | Description | +--------+ + + + + | 05/04/ | Hospital | Adult Acute Care | El Starr MD | | | 2022 | Encounter | | [address] | | | | | | [place], [place] | | | | | | [address] | | | | | | [phone] | | | | | | | | +--------+ + + + + documented as of this encounter Visit Diagnoses Not on filedocumented in this encounter"
--- OUTSIDE RECORDS SUMMARY | 2019-12-25 21:20 | XMS | Encounter Summary ---
Demographics + + + | Address | [address] | | | [place] [address] | + + + | Home Phone | | + + + | Preferred Language | Unknown | + + + | Marital Status | Single | + + + | Sikhism Affiliation | Unknown | + + + | Race | White | + + + | Ethnic Group | Not or | + + + Author + + + | Author | [facility] | + + + | Organization | [facility] | + + + | Address | Unknown | + + + | Phone | Unavailable | + + + Support + + + + + | Name | Relationship | Address | Phone | + + + + + | Cory Weldon | ECON | [address] | | | | | [place] [address] | | + + + + + | Thania Mallory | ECON | [address] | | | | | [place] [address] | | + + + + + | Deidra Weldon | ECON | [address] | | | | | [place] | | | | | [address] | | + + + + + Care Team Providers + +------+ + | Care Plaster Lather Name | Role | Phone | + +------+ + | Jonathan Alonso MD | PCP | | + +------+ + Encounter Details +--------+ + + + + | Date | Type | Department | Care Team | Description | +--------+ + + + + | 05/24/ | Abstract | Pediatric | Sudhakar Joy | | | 2016 | | Nephrology at | MD Emanuel [address] | | | | | [place] | [facility] | | | | | [facility] | [place], [place] | | | | | [address] | [address] | | | | | [place] | [phone] | | | | | [facility], | | | | | | [address] [place] [address] | | | | | | [place], [place] | | | | | | [address] | | | | | | [phone] | | | +--------+ + + + [...] Denise | | | | | | [place], [place] | | | | | | [address] | | | | | | [phone] | | | | | | | | +--------+ + + + + documented as of this encounter Procedures + +--------+ + + + | Procedure Name | Priori | Date/Time | Associated Diagnosis | Comments | | | ty | | | | + +--------+ + + + | PEDS NEPHROLOGY | Routin | 05/11/2016 | | Results for this | | EXTERNAL RESULTS | e | | | procedure are in the | | PANEL | | | | results section. | + +--------+ + + + | PEDS NEPHROLOGY | Routin | 04/13/2016 | | Results for this | | EXTERNAL RESULTS | e | | | procedure are in the | | PANEL | | | | results section. | + +--------+ + + + | PEDS NEPHROLOGY | Routin | 03/09/2016 | | Results for this | | EXTERNAL RESULTS | e | | | procedure are in the | | PANEL | | | | results section. | + +--------+ + + + | PEDS NEPHROLOGY | Routin | 02/10/2016 | | Results for this | | EXTERNAL RESULTS | e | | | procedure are in the | | PANEL | | | | results section. | + +--------+ + + + | PEDS NEPHROLOGY | Routin | 01/13/2016 | | Results for this | | EXTERNAL RESULTS | e | | | procedure are in the | | PANEL | | | | results section. | + +--------+ + + + | PEDS NEPHROLOGY | Routin | 12/12/2015 | | Results for this | | EXTERNAL RESULTS | e | | | procedure are in the | | PANEL | | | | results section. | + +--------+ + + + documented in this encounter Results PEDS NEPHROLOGY EXTERNAL RESULTS PANEL (05/11/2016) + + + + + + | Component | Value | Ref Range | Performed | Pathologist | | | | | At | Signature | + + + + + + | URR | 79 | % | [facility] | | + + + + + + | BUN, PLASMA | 58 (A) | mg/dL | [facility] | | (LAB) | | [facility] | | + + + + + + | CREATININE | 10.18 (A) | mg/dL | [facility] | | PLAS[facility] | | [facility] ([facility] | | + + + + + + | SODIUM, | 138 | mmol/L | [facility] | [facility] | | [facility] ([facility] | | + + + + + + | POTASSIUM, | 4.9 | mmol/L | [facility] | | [facility] | | [facility] ([facility] | | + + + + + + | CHLORIDE, | 98 | mmol/L | [facility] | | [facility] | | [facility] | | + + + + + + | TOTAL CO2, | 24 | mmol/L | [facility] | | [facility]AS[facility] | | [facility] | | + + + + + + | CALCIUM, | 9.7 | mg/dL | [facility] | | [facility]AS[facility] | | [facility] ([facility] | | + + + + + + | PHOSPHORUS, | 4.5 | mg/dL | [facility] | | [facility] | | [facility] ([facility] | | + + + + + + | TOTAL | 6.6 | g/dL | [facility] | | PROTEIN, | | | [facility] | | [facility] | [facility] | | | (LAB) | | | | | + + + + + + | ALBUMIN, | 3.9 | g/dL | [facility] | | PLAS[facility] | | [facility] ([facility] | | + + + + + + | ALK PHOS | Q | U/L | [facility] | | + + + + + + | LDH, SERUM | 201 | U/L | [facility] | | + + + + + + | AST(SGOT) | 27 | U/L | [facility] | | + + + + + + | ALT (SGPT) | 19 | U/L | [facility] | | + + + + + + | KT/V | 2.28Comment: KT/V Rx | | [facility] | | + + + + + + | PTH, SERUM | 1,182 (A) | pg/mL | [facility] | | + + + + + + | CALCIUM, | 9.8 | mg/dL | [facility] | | CORRECTED | | | [facility] | | + + + + + + | ALKALINE | 44.1Comment: Ca*Phos, | 0 - 54 | [facility] | | PHOS, OTHER | corrected | | [facility] | | CALC | | [facility] | | + + + + + + | WHITE CELL | 7.4 | K/cu mm | [facility] | | COUNT | | [facility] | | + + + + + + | HEMOGLOBIN | 11.6 (A) | 12.1999 - 15 | [facility] | | | | g/dL | [facility] | | + + + + + + | HEMATOCRIT | 35.6 (A) | % | [facility] | | + + + + + + | RDW | 13.6 | % | [facility] | | + + + + + + | PLATELET | 140 (A) | K/cu mm | [facility] | | COUNT | | [facility] | | + + + + + + | MCV | 108.2 (A) | fL | [facility] | | + + + + + + | NEUTROPHIL | 5,952 | | [facility] | | ABSOLUTE - | | | [facility] | | + + + + + + | NEUTROPHIL | 80.0 | % | [facility] | | % | | | [facility] | | + + + + + + | LYMPHOCYTE | 14.5 | % | [facility] | | % | | [facility] | | + + + + + + | MONOCYTE % | 3.8 | % | [facility] | | + + + + + + | EOS % | 1.6 | % | [facility] | | + + + + + + | BASO % | 0.2 | % | [facility] | | + + + + + + | IRON SERUM | 52 | ug/dL | [facility] | | + + + + + + | IRON BIND | 190 (A) | ug/dL | [facility] | | | CAP SERUM | | | [facility] | | + + + + + + | % | 27 | % | [facility] | | | SATURATION | | | [facility] | | [facility]SF[facility] | | | , SERUM | | | | | + + + + + + | FERRITIN | 965 (A) | ng/mL | [facility] | | + + + + + + + + | Specimen | + + | Blood - Blood | | (substance) | + + + + + + + | Performing | Address | City/State/Zipcode | Phone Number | | Organization | | | | + + + + + | [facility] | [address] | [place] [address] | [phone] | | [facility] | | | | + + + + + PEDEdil NEPHROLOGY EXTERNAL RESULTS PANEL (04/13/2016) + + + + + + | Component | Value | Ref Range | Performed | Pathologist | | | | | At | Signature | + + + + + + | URR | 76 | % | [facility] | | + + + + + + | BUN, PLASMA | 68 (A) | mg/dL | [facility] | | (LAB) | | [facility] | | + + + + + + | CREATININE | 9.87 (A) | mg/dL | [facility] | | PLASMA | | | [facility] | ([facility] | | + + + + + + | SODIUM, | 137 | mmol/L | [facility] | | PLAS[facility] | | | [facility] | ([facility] | | + + + + + + | POTASSIUM, | 5.5 (A) | mmol/L | [facility] | | PLAS[facility] | | [facility] | ([facility] | | + + + + + + | CHLORIDE, | 100 | mmol/L | [facility] | | PLAS[facility] | | [facility] ([facility] | | + + + + + + | TOTAL CO2, | 24 | mmol/L | [facility] | | PLAS[facility] | | [facility] | ([facility] | | + + + + + + | CALCIUM, | 9.7 | mg/dL | [facility] | | PLAS[facility] | | | [facility] | ([facility] | [facility] | | + + + + + + | PHOSPHORUS, | 7.7 (A) | mg/dL | [facility] | | PLAS[facility] | | [facility] | ([facility] | | + + + + + + | TOTAL | 6.8 | g/dL | [facility] | | | PROTEIN, | | | [facility] | | [facility] | | [facility] | | | (LAB) | | | | | + + + + + + | ALBUMIN, | 3.8 | g/dL | [facility] | | PLAS[facility] | | | [facility] | | ([facility]) | [facility] | | + + + + + + | ALK PHOS | 119 (A) | U/L | [facility] | | + + + + + + | LDH, SERUM | 162 | U/L | [facility] | | + + + + + + | AST(SGOT) | 13 | U/L | [facility] | | + + + + + + | ALT (SGPT) | 19 | U/L | [facility] | | + + + + + + | KT/V | 2.27Comment: KT/V Rx | | [facility] | | + + + + + + | CALCIUM, | 9.9 | mg/dL | [facility] | | | CORRECTED | | | [facility] | | + + + + + + | PTH, SERUM | 1,096 (A) | pg/mL | [facility] | | + + + + + + | ALKALINE | 76.2 (A) | 0 - 54 | [facility] | | PHOS, OTHER | | | [facility] | | [facility]C | | [facility] | | + + + + + + | VITAMIN D | 24 (A) | ng/mL | [facility] | | 25 HYDROXY | | | [facility] | | + + + + + + | WHITE CELL | 9.0 | K/cu mm | [facility] | | | COUNT | | | [facility] | | + + + + + + | HEMOGLOBIN | 12.4 | 12.1999 - 15 | [facility] | | | | g/dL | [facility] | | + + + + + + | HEMATOCRIT | 38.6 | % | [facility] | | [facility] | | + + + + + + | RDW | 14.5 | % | [facility] | | + + + + + + | PLATELET | 179 | K/cu mm | [facility] | | | COUNT | | | [facility] | | + + + + + + | MCV | 110.8 (A) | fL | [facility] | | + + + + + + | NEUTROPHIL | 6,156 | | [facility] | | | ABSOLUTE - | | | [facility] | | + + + + + + | NEUTROPHIL | 68.4 | % | [facility] | | % | | | [facility] | | + + + + + + | LYMPHOCYTE | 24.2 | % | [facility] | | % | | | [facility] | | + + + + + + | MONOCYTE % | 3.2 | % | [facility] | | + + + + + + | EOS % | 3.5 | % | [facility] | | + + + + + + | BASO % | 0.7 | % | [facility] | | + + + + + + | IRON SERUM | 84 | ug/dL | [facility] | | + + + + + + | IRON BIND | 216 (A) | ug/dL | [facility] | | | CAP SERUM | | | [facility] | | + + + + + + | % | 39 | % | [facility] | | | SATURATION | | | [facility] | | | [facility]SF[facility] | | | [facility] | | | , SERUM | | | | | + + + + + + | FERRITIN | 665 (A) | ng/mL | [facility] | | + + + + + + + + | Specimen | + + | Blood - Blood | | (substance) | + + + + + + + | Performing | Address | City/State/Zipcode | Phone Number | | Organization | | | | + + + + + | [facility] | [address] | [place] [address] | [phone] | | [facility] | | | | + + + + + PEDEdil NEPHROLOGY EXTERNAL RESULTS PANEL (03/09/2016) + + + + + + | Component | Value | Ref Range | Performed | Pathologist | | | | | At | Signature | + + + + + + | URR | 82 | % | [facility] | | + + + + + + | BUN, PLASMA | 33 (A) | mg/dL | [facility] | | (LAB) | | [facility] | | + + + + + + | CREATININE | 7.78 (A) | mg/dL | [facility] | | PLASMA | | | [facility] | ([facility] | | + + + + + + | SODIUM, | 137 | mmol/L | [facility] | | PLAS[facility] | | [facility] | ([facility] | | + + + + + + | POTASSIUM, | 4.2 | mmol/L | [facility] | | PLAS[facility] | | [facility] ([facility] | | + + + + + + | CHLORIDE, | 98 | mmol/L | [facility] | | [facility]AS[facility] | | [facility] ([facility] | | + + + + + + | TOTAL CO2, | 27 | mmol/L | [facility] | | [facility]AS[facility] | | [facility] | ([facility] | | + + + + + + | CALCIUM, | 9.2 | mg/dL | [facility] | | PLAS[facility] | | [facility] | ([facility] | | + + + + + + | PHOSPHORUS, | 7.3 (A) | mg/dL | [facility] | | PLAS[facility] | | [facility] | ([facility] | | + + + + + + | TOTAL | 6.4 | g/dL | [facility] | | | PROTEIN, | | | [facility] | | | [facility] | [facility] | | | (LAB) | | | | | + + + + + + | ALBUMIN, | 3.7 | g/dL | [facility] | | PLAS[facility] | | | [facility] | | ([facility] | [facility] | | + + + + + + | ALK PHOS | 105 (A) | U/L | [facility] | | + + + + + + | LDH, SERUM | 177 | U/L | [facility] | | + + + + + + | AST(SGOT) | 16 | U/L | [facility] | | + + + + + + | ALT (SGPT) | 24 | U/L | [facility] | | + + + + + + | KT/V | 2.55Comment: KT/V Rx | | [facility] | | + + + + + + | PTH, SERUM | 1,277 (A) | pg/mL | [facility] | | + + + + + + | CALCIUM, | 9.4 | mg/dL | [facility] | | | CORRECTED | | | [facility] | | + + + + + + | ALKALINE | 68.6 (A) | 0 - 54 | [facility] | | PHOS, OTHER | | | [facility] | | | [facility]C | | [facility] | | + + + + + + | WHITE CELL | 6.6 | K/cu mm | [facility] | | COUNT | | [facility] | | + + + + + + | HEMOGLOBIN | 12.7 | 12.1999 - 15 | [facility] | | | g/dL | [facility] | | + + + + + + | HEMATOCRIT | 36.9 (A) | % | [facility] | | + + + + + + | RDW | 14.0 | % | [facility] | | + + + + + + | PLATELET | 211 | K/cu mm | [facility] | | [facility] | | [facility] | | + + + + + + | MCV | 112.0 (A) | fL | [facility] | | + + + + + + | NEUTROPHIL | 3,498 | | [facility] | | | ABSOLUTE - | | | [facility] | | + + + + + + | NEUTROPHIL | 53.0 | % | [facility] | | % | | [facility] | | + + + + + + | LYMPHOCYTE | 36.4 | % | [facility] | | % | | | [facility] | | + + + + + + | MONOCYTE % | 4.4 | % | [facility] | | + + + + + + | EOS % | 5.5 | % | [facility] | | + + + + + + | BASO % | 0.7 | % | [facility] | | + + + + + + | IRON SERUM | 108 | ug/dL | [facility] | | + + + + + + | IRON BIND | 198 (A) | ug/dL | [facility] | | | CAP SERUM | | | [facility] | | + + + + + + | % | 55 (A) | % | [facility] | | | SATURATION | | | [facility] | | [facility] | | [facility] | | | , SERUM | | | | | + + + + + + | FERRITIN | 747 (A) | ng/mL | [facility] | | + + + + + + + + | Specimen | + + | Blood - Blood | | (substance) | + + + + + + + | Performing | Address | City/State/Zipcode | Phone Number | | Organization | | | | + + + + + | [facility] | [address] | [place] [address] | [phone] | | [facility]ITAL | | | | + + + + + PEDEdil NEPHROLOGY EXTERNAL RESULTS PANEL (02/10/2016) + + + + + + | Component | Value | Ref Range | Performed | Pathologist | | | | | At | Signature | + + + + + + | BUN, PLASMA | 32 (A) | mg/dL | [facility] | | (LAB) | | [facility] | | + + + + + + | CREATININE | 9.83 (A) | mg/dL | [facility] | | PLAS[facility] | | [facility] ([facility] | | + + + + + + | SODIUM, | 139 | mmol/L | [facility] | | [facility] | | [facility] ([facility] | | + + + + + + | POTASSIUM, | 4.2 | mmol/L | [facility] | | [facility] | | [facility] | ([facility] | | + + + + + + | CHLORIDE, | 103 | mmol/L | [facility] | | [facility] | | [facility] ([facility] | | + + + + + + | TOTAL CO2, | 23 | mmol/L | [facility] | | [facility] | | [facility] ([facility] | | + + + + + + | CALCIUM, | 8.9 | mg/dL | [facility] | | [facility] | | [facility] ([facility] | | + + + + + + | PHOSPHORUS, | 8.0 (A) | mg/dL | [facility] | | [facility] | | [facility] | | + + + + + + | TOTAL | 6.5 | g/dL | [facility] | | | PROTEIN, | | | [facility] | | [facility] | | | (LAB) | | | | | + + + + + + | ALBUMIN, | 3.5 | g/dL | [facility] | | [facility] | | [facility] | | + + + + + + | ALK PHOS | 116 (A) | U/L | [facility] | | + + + + + + | LDH, SERUM | 182 | U/L | [facility] | | + + + + + + | AST(SGOT) | 25 | U/L | [facility] | | + + + + + + | ALT (SGPT) | 55 (A) | U/L | [facility] | | + + + + + + | KT/V | 2.60Comment: KT/V Rx | Q | [facility] | | + + + + + + | URR | 84 | % | [facility] | | + + + + + + | PTH, SERUM | 1,082 (A) | pg/mL | [facility] | | + + + + + + | CALCIUM, | 9.3 | mg/dL | [facility] | | | CORRECTED | | | [facility] | | + + + + + + | ALKALINE | 74.4 (A) | 0 - 54 | [facility] | | PHOS, OTHER | | [facility] | | [facility] | | + + + + + + | WHITE CELL | 5.6 | K/cu mm | [facility] | | COUNT | | [facility] | | + + + + + + | HEMOGLOBIN | 10.4 (A) | 12.1999 - 15 | [facility] | | | | g/dL | [facility] | | + + + + + + | HEMATOCRIT | 31.5 (A) | % | [facility] | | + + + + + + | RDW | 14.8 | % | [facility] | | + + + + + + | PLATELET | 164 | K/cu mm | [facility] | | [facility] | | [facility] | | + + + + + + | MCV | 110.3 (A) | fL | [facility] | | + + + + + + | NEUTROPHIL | 2,134 | | [facility] | | ABSOLUTE - | | [facility] | | + + + + + + | NEUTROPHIL | 38.1 | % | [facility] | | % | | [facility] | | + + + + + + | LYMPHOCYTE | 51.8 | % | [facility] | | % | | [facility] | | + + + + + + | MONOCYTE % | 4.3 | % | [facility] | | + + + + + + | EOS % | 5.1 | % | [facility] | | + + + + + + | BASO % | 0.7 | % | [facility] | | + + + + + + | IRON SERUM | 96 | ug/dL | [facility] | | + + + + + + | IRON BIND | 178 (A) | ug/dL | [facility] | | | CAP SERUM | | [facility] | | + + + + + + | % | 54 (A) | % | [facility] | | | SATURATION | | [facility] | | [facility]SF[facility] | | | , SERUM | | | | | + + + + + + | FERRITIN | 1,469 (A) | ng/mL | [facility] | | + + + + + + + + | Specimen | + + | Blood - Blood | | (substance) | + + + + + + + | Performing | Address | City/State/Zipcode | Phone Number | | Organization | | | | + + + + + | [facility] | [address] | [place] [address] | [phone] | | [facility] | | | | + + + + + PEDS NEPHROLOGY EXTERNAL RESULTS PANEL (01/13/2016) + + + + + + | Component | Value | Ref Range | Performed | Pathologist | | | | | At | Signature | + + + + + + | BUN, PLASMA | 81 (A) | mg/dL | [facility] ([facility] | | + + + + + + | CREATININE | 13.86 (A) | mg/dL | [facility] | | + + + + + + | SODIUM, | 138 | mmol/L | [facility] | | + + + + + + | POTASSIUM, | 4.3 | mmol/L | [facility] | | + + + + + + | CHLORIDE, | 103 | mmol/L | [facility] | | + + + + + + | TOTAL CO2, | 17 (A) | mmol/L | [facility] | | + + + + + + | CALCIUM, | 8.7 | mg/dL | [facility] | | + + + + + + | PHOSPHORUS, | 10.0 (A) | mg/dL | [facility] | | + + + + + + | TOTAL | 6.4 | g/dL | [facility] | [facility], | | [facility] | | | ([facility]) | | | | | + + + + + + | ALBUMIN, | 3.7 | g/dL | [facility] | | + + + + + + | ALK PHOS | 117 (A) | U/L | [facility] | | + + + + + + | LDH, SERUM | 186 | U/L | [facility] | | + + + + + + | AST(SGOT) | 14 | U/L | [facility] | | + + + + + + | ALT (SGPT) | 19 | U/L | [facility] | | + + + + + + | URR | 86 | % | [facility] | | + + + + + + | KT/V | 2.63Comment: KT/V Rx | | [facility] | | + + + + + + | PTH, SERUM | 1,275.8 (A) | pg/mL | [facility] | | + + + + + + | WHITE CELL | 4.5 | K/cu mm | [facility] | [facility] | | + + + + + + | HEMOGLOBIN | 11.1 (A) | 12.1999 - 15 | [facility] | | | g/dL [facility] | | + + + + + + | HEMATOCRIT | 32.8 (A) | % | [facility] | | + + + + + + | RDW | 13.6 | % | [facility] | | + + + + + + | PLATELET | 151 | K/cu mm | [facility] | | + + + + + + | MCV | 10.7.3 (A) | fL | [facility] | | + + + + + + | NEUTROPHIL | 2,750 | | [facility]OLUTE - | [facility] | | + + + + + + | NEUTROPHIL | 61.1 | % | [facility] % | [facility] | | + + + + + + | LYMPHOCYTE | 27.8 | % | [facility] % | | [facility] | | + + + + + + | MONOCYTE % | 5.5 | % | [facility] | | + + + + + + | EOS % | 4.9 | % | [facility] | | + + + + + + | BASO % | 0.7 | % | [facility] | | + + + + + + | IRON SERUM | 80 | ug/dL | [facility] | | + + + + + + | IRON BIND | 198 (A) | ug/dL | [facility] | [facility] | | + + + + + + | % | 40 | % | [facility] | SAT[facility] | | [facility] | | | , [facility] | | | | | + + + + + + | FERRITIN | 1,132 (A) | ng/mL | [facility] | | + + + + + + | CALCIUM, | 8.9 | mg/dL | [facility] | | CORRECTED | | [facility] | | + + + + + + | ALKALINE | 89.0 (A)Comment: | 0 - 54 | [facility] | | PHOS, OTHER | Ca*Phos, corrected | [facility] | [facility]C | | [facility] | | + + + + + + + + | Specimen | + + | Blood - Blood | | (substance) | + + + + + + + | Performing | Address | City/State/Zipcode | Phone Number | | Organization | | | | + + + + + | [facility] | [address] | [place] [address] | [phone] | | [facility] | | | | + + + + + PEDS NEPHROLOGY EXTERNAL RESULTS PANEL (12/12/2015) + + + + + + | Component | Value | Ref Range | Performed | Pathologist | | | | | At | Signature | + + + + + + | BUN, PLASMA | 47 (A) | mg/dL | [facility] ([facility] | | + + + + + + | CREATININE | 9.56 (A) | mg/dL | [facility] | | + + + + + + | SODIUM, | 140 | mmol/L | [facility] | | + + + + + + | POTASSIUM, | 3.9 | mmol/L | [facility] | | + + + + + + | CHLORIDE, | 105 | mmol/L | [facility] | | + + + + + + | TOTAL CO2, | 21 | mmol/L | [facility] | | + + + + + + | CALCIUM, | 9.2 | mg/dL | [facility] | | + + + + + + | PHOSPHORUS, | 6.5 (A) | mg/dL | [facility] | | + + + + + + | TOTAL | 6.2 (A) | g/dL | [facility] | PROTEIN, | | [facility] | | | ([facility]) | | | | | + + + + + + | ALBUMIN, | 3.5 | g/dL | [facility] | | + + + + + + | ALK PHOS | 120 (A) | U/L | [facility] | | + + + + + + | LDH, SERUM | 189 | U/L | [facility] | | + + + + + + | AST(SGOT) | 15 | U/L | [facility] | | + + + + + + | ALT (SGPT) | 24 | U/L | [facility] [facility] | [facility] | | + + + + + + | PTH, SERUM | 962 (A) | pg/mL | [facility] | [facility] | | + + + + + + | WHITE CELL | 8.4 | K/cu mm | [facility] | | | COUNT | | | [facility] | | + + + + + + | HEMOGLOBIN | 12.1 (A) | 121999 - 15 | [facility] | | | | | g/dL | [facility] | | + + + + + + | HEMATOCRIT | 36.6 | % | [facility] | | + + + + + + | RDW | 13.4 | % | [facility] | [facility] | | + + + + + + | PLATELET | 162 | K/cu mm | [facility] | | [facility] | | | [facility] | | + + + + + + | MCV | 108.9 (A) | fL | [facility] | | | | [facility] | | + + + + + + | NEUTROPHIL | 5,200 | | [facility] | | | ABSOLUTE - | | | [facility] | | + + + + + + | NEUTROPHIL | 61.9 | % | [facility] | | | % | | | [facility] | | + + + + + + | LYMPHOCYTE | 28.1 | % | [facility] | | | % | | | [facility] | | + + + + + + | MONOCYTE % | 4.4 | % | [facility] | [facility] | | + + + + + + | EOS % | 5.0 | % | [facility] | [facility] | | + + + + + + | BASO % | 0.6 | % | [facility] | | | | | [facility] | | + + + + + + | CALCIUM, | 9.6 | mg/dL | [facility] | | | CORRECTED | | | [facility] | | + + + + + + | ALKALINE | 62.4 (A)Comment: | 0 - 54 | [facility] | | | PHOS, OTHER | Ca*Phos, corrected | | [facility] | | + + + + + + | URR | 83 | % | [facility] | | | | [facility] | | + + + + + + | KT/V | 2.56Comment: KT/V Rx | | [facility] | | + + + + + + + + | Specimen | + + | Blood - Blood | | (substance) | + + + + + + + | Performing | Address | City/State/Zipcode | Phone Number | | Organization | | | | + + + + + | [facility] | [address] | [place] [address] | [phone] | | [facility] | | | | + + + + + documented in this encounter Visit Diagnoses Not on filedocumented in this encounter"
--- OUTSIDE RECORDS SUMMARY | 2019-12-25 21:20 | XMS | Encounter Summary ---
Demographics + + + | Address | [address] | | | [place] [address] | + + + | Home Phone | | + + + | Preferred Language | Unknown | + + + | Marital Status | Single | + + + | Taoist Affiliation | Unknown | + + + [...] | | | | | [place] [address] | | + + + + + | Thania Mallory | ECON | [address] | | | | | [place] [address] | | + + + + + | Deidra Weldon | ECON | [address] | | | | | [place] | | | | | [address] | | + + + + + Care Team Providers + +------+ + | Care Support Engineer Name | Role | Phone | + +------+ + | Jonathan Alonso MD | PCP | | + +------+ + Reason for Visit + + + | Reason | Comments | + + + | Follow-up Plan | | + + + Encounter Details +--------+ + + + + | Date | Type | Department | Care Team | Description | +--------+ + + + + | 06/02/ | Documentati | Clinical | Kelsi Martinez, | Follow-up Plan | | 2017 | on | Transplant Services | RN [address] | | | | | [address] [place] | [facility] | | | | | [place], | [place], [place] | | | | | [place] [address] | [address] | | | | | [phone] | | | +--------+ + + + [...] this encounter Miscellaneous Notes Telephone Encounter - Kelsi Martinez RN - 06/02/2016 12:55 PM PDTFaxed clinic note and t his nurse's documentation from 05/24/2016 to keep dialysis unit updated regarding pre-transp lant plan. Requested that the dialysis unit contact this office if pt continues to skip cole lysis runs. Per clinic note received from them, pt has been skipping about one run every tw o weeks which is against the agreement pt made with this nurse. documented in this encounter Plan of Treatment +--------+ + + + + | Date | Type | Specialty | Care Team | Description | +--------+ + + + + | 05/04/ | Hospital | Adult Acute Care | El Starr MD | | | 2022 | Encounter | | [address] | | | | | | [place], [place] | | | | | | [address] | | | | | | [phone] | | | | | | | | +--------+ + + + + documented as of this encounter Visit Diagnoses Not on filedocumented in this encounter"
--- OUTSIDE RECORDS SUMMARY | 2019-12-25 21:20 | XMS | Encounter Summary ---
Demographics + + + | Address | [address] | | | [place] [address] | + + + | Home Phone | | + + + | Preferred Language | Unknown | + + + | Marital Status | Single | + + + | Mormonism Affiliation | Unknown | + + + | Race | White | + + + | Ethnic Group | Not or | + + + Author + + + | Author | [facility] | + + + | Organization | [facility] | + + + | Address | Unknown | + + + | Phone | Unavailable | + + + Support + + + + + | Name | Relationship | Address | Phone | + + + + + | Cory Weldon | ECON | [address] | | | | | [place] [address] | | + + + + + | Thania Mallory | ECON | [address] | | | | | [place] [address] | | + + + + + | Deidra Weldon | ECON | [address] | | | | | [place] | | | | | [address] | | + + + + + Care Team Providers + +------+ + | Care Campus Interviews Intern Name | Role | Phone | + +------+ + | Jonathan Alonso MD | PCP | | + +------+ + Reason for Visit + +--------+ + | Reason | Onset | Comments | | | Date | | + +--------+ + | Transplant Status | 07/06/ | Close referral | | Change | 2016 | | + +--------+ + Encounter Details +--------+ + + + + | Date | Type | Department | Care Team | Description | +--------+ + + + + | 07/06/ | Telephone | Clinical | Kelsi Martinez | Transplant Status | | 2016 | | Transplant Services | RN [address] | Prem (Close | | | | [address] | [facility] | referral) | | | | [place], | [place], [place] | | | | | [place] [address] | [address] | | | | | [phone] | | | +--------+ + + + [...] Telephone Encounter - Kelsi Martinez RN - 07/07/2016 8:44 AM PDTReceived phone call fro m pt, confirmed pt using two pt identifier (name and ). Pt wanted to discuss her current transplant status and desire to be on the donor waitlist. Pt stated that at this time she felt that she was not emotionally or physically ready to proceed with transplant or be on the waitlist. She continues to have difficulty with compliance, particularly regardi ng her medications and her labs. She feels that it would be better for her to close her cur rent transplant referral and be re-referred to the adult program once she feels better prepa red to proceed with transplant. Discussed with pt that although I knew this was a very diffi cult decision for her, that it was also a very mature decision. Told her that down the road I felt that she would be a good candidate for transplant but currently she had a number of issues that needed to be resolved. We agreed that this current referral would be closed. L et her know that I would be also sending her a letter confirming that this referral was clos ed. Pt acknowledged understanding of the plan, repeated it back and agreed to the plan. I spent 20 minutes speaking with pt and dialysis unit regarding pt's care and in care coordina tion. Contacted dialysis unit of pt, confirmed pt using two pt identifier (name and ). Notifi ed them regarding the phone call that was received from the pt and her request to have trans plant referral closed. Discussed the maturity of the decision and that they were in agreeme nt with the decision, particularly given the lack of support from her peers and poor support at home. Dialysis unit agreed to discuss the maturity of her decision and to continue prep aring her for her next transplant referral. documented in this e ncounter Plan of Treatment +--------+ + + + + | Date | Type | Specialty | Care Team | Description | +--------+ + + + + | 05/04/ | Hospital | Adult Acute Care | El Starr MD | | | 3 | Encounter | | [address] | | | | | | [place] | | | | | | [address] | | | | | | [phone] | | | | | | | | +--------+ + + + + documented as of this encounter Visit Diagnoses Not on filedocumented in this encounter"
--- OUTSIDE RECORDS SUMMARY | 2019-12-25 21:20 | XMS ---
PreManage Notification: [facility]OR [facility] Security Dining Room Maid Events No recent Security Events currently on file CRITERIA MET - 6 ED Visits in 6 Months - [facility] - Has Care Guidelines - PDMP - [facility] - 2 Visits in 30 Days CARE PROVIDERS TIEN NICHOLSON Internal Medicine 05/28/2018-Current PHONE: Unknown Karena has no Care Guidelines for this patient. Care History Medical/Surgical 09/24/2019 [facility] Per [facility], patient has been non compliant, missing every appointment for September (09/03,3,10,,).\T\nbsp; Laura at [facility] stated patient has been keeping scheduled appointments with them.\ T\nbsp; Left voice mail for return call from patient to see if there is any way I can assist in following through with dialysis. 04/15/2019 [facility] Patient still non compliant.\T\nbsp; Has made attempts to stay for full dialysis treatment, but still having anxiety that prevents her from sticking it out.\T\nbsp;\T\nbsp; Next scheduled appointment is 04/23/[address] Lind. 03/13/2019 [facility] Patient has history of anxiety [...] visit. Timothy VISIT COUNT (12 MO.) [facility] 10 [facility] TOTAL 15 NOTE: Visits indicate total known visits. ED/UCC VISIT TRACKING (12 MO.) 12/25/2019 21:09 [facility] [place] TYPE: Emergency COMPLAINT: - CHEST PAIN 12/21/2019 22:45 [facility] [place] TYPE: Emergency COMPLAINT: - CHEST TIGHTNESS/SOB/NAUSEA DIAGNOSES: - Allergy status to other drugs, medicaments and biological sub - Radiographic dye allergy status - Personal history of nicotine dependence - Chronic kidney disease, unspecified - Other group home (current) drug therapy - Shortness of breath - Allergy status to narcotic agent status 10/13/2019 22:41 [facility] TYPE: Emergency DIAGNOSES: - Shortness of Breath - Dependence on renal dialysis - Pleural effusion, not elsewhere classified - End stage renal disease 09/22/2019 20:44 [facility] TYPE: Emergency COMPLAINT: - STABBING RIB PAIN DIAGNOSES: - Radiographic dye allergy status - Other parts counterman (current) drug therapy - Allergy status to other drugs, medicaments and biological sub - Other chest pain 07/14/2019 15:26 [facility] TYPE: Emergency DIAGNOSES: - Medical Problem (Major) - Dependence on renal dialysis - Acute pulmonary edema - HD - Shortness of breath - End stage renal disease 07/14/2019 10:36 [facility] [place] TYPE: Emergency COMPLAINT: - CHEST PAIN, SOB DIAGNOSES: - Anxiety disorder, unspecified - Allergy status to analgesic agent status - Other parts counterman (current) drug therapy - Pleural effusion, not elsewhere classified - Shortness of breath - Patient's noncompliance with renal dialysis - Hypoxemia - Radiographic dye allergy status - Allergy status to other drugs, medicaments and biological sub - Fluid overload, unspecified - Chronic kidney disease, unspecified 04/18/2019 11:38 [facility] TYPE: Emergency DIAGNOSES: - End [...] status to narcotic agent status - Other parts counterman (current) drug therapy - Pleural effusion, not [...] status to narcotic agent status - Other parts counterman (current) drug therapy - Radiographic dye allergy [...] Other group home (current) drug therapy - End stage [...] - Fluid overload, unspecified [facility] DIAGNOSES: - Shortness of breath - Shortness of Breath - Dependence on renal dialysis - End stage renal disease - Pleural effusion, not elsewhere classified 01/07/2019 01:[facility] DIAGNOSES: - Dependence on renal dialysis - Hyperkalemia - End stage renal disease - Acute respiratory distress - Hypertension - High Potassium 01/06/2019 19:30 [facility] TYPE: Emergency COMPLAINT: - CHEST PAIN, SOB DIAGNOSES: - Allergy status to narcotic agent status - Other parts counterman (current) drug therapy - Hyperkalemia - Dyspnea, [...] INPATIENT VISIT TRACKING (12 MO.) 07/14/2019 15:26 [facility] TYPE: Internal Medicine [...] - Dependence on renal dialysis 04/18/2019 11:[facility] DIAGNOSES: - Fluid overload, [...] systolic (congestive) and diastolic (congest 01/23/2019 22:10 [facility] DIAGNOSES: - Pleural [...] elsewhere classifi - Dependence on renal dialysis [email or web address]
--- OUTSIDE RECORDS SUMMARY | 2019-12-25 21:20 | XMS | Clinical Summary ---
Demographics + + + | Address | [address] | | | [place] [address] | + + + | Home Phone | | + + + | Preferred Language | Unknown | + + + | Marital Status | Single | + + + | Caodaism Affiliation | Unknown | + + + | Race | White | + + + | Ethnic Group | Not or | + + + Author + + + | Author | [facility] | + + + | Organization | NON REVENUE LOCATIONS | + + + | Address | Unknown | + + + | Phone | Unavailable | + + + Support + + + + + | Name | Relationship | Address | Phone | + + + + + | Cory Weldon | ECON | [address] | | | | | [place] [address] | | + + + + + | Thania Mallory | ECON | [address] | | | | | [place] [address] | | + + + + + | Deidra Weldon | ECON | [address] | | | | | [place], [place] | | | | | [address] | | + + + + + Care Team Providers + +------+ + | Care Chief Clerk Shelter Name | Role | Phone | + +------+ + | Jonathan Alonso MD | PCP | | + +------+ + Source Comments DAN[facility]O is fully live on both EpicCare Ambulatory and EpicCare InPatient[facility]erg[facility] + + + + + + | Active Allergy | Reactions | Severity | Noted | Comments | | | | | Date | | + + + + + + | Adhesive Tape | Rash | Medium | 01/21/20 | Certain tapes | | | | | 15 | | + + + + + + | Fentanyl | Pruritus | Medium | 20 | | | | | | 15 | | + + + + + + | Contrast Medium | Hives | | 08/18/19 | | | | | | 16 | | + + + + + + | Morphine | Rash | Medium | 01/21/20 | Other reaction(s): | | | | | 15 | Itching | + + + + + + Medications + + + +---------+------+------+-------+ | Medication | Sig | Dispensed | Refills | Star | End | Statu | | | | | | t | Date | s | | | | | | Date | | | + + + +---------+------+------+-------+ | sevelamer | Take 3,200 mg by | | 0 | | | Activ | | carbonate (RENVELA) | mouth with each meal | | | | | e | | 800 mg Oral tablet | and with snack(s). | | | | | | | | 3 with snacks | | | | | | + + + +---------+------+------+-------+ | EPOETIN JOYCE INJ | by Injection route. | | 0 | | | Activ | | | | | | | | e | + + + +---------+------+------+-------+ | FOLIC ACID/VITAMIN | Take 1 tablet by | | 0 | | | Activ | | B COMP W-C | mouth once daily. | | | | | e | | (DIALYVITE ORAL) | | | | | | | + + + +---------+------+------+-------+ | iron sucrose 100 | Inject 100 mg into | | 0 | | | Activ | | mg iron/5 mL | the vein (IV) once. | | | | | e | | intravenous solution | Per dialysis unit | | | | | | + + + +---------+------+------+-------+ | clopidogrel 75 mg | Take 75 mg by mouth | | 0 | | | Activ | | oral tablet | once daily. Take one | | | | | e | | | tablet by mouth | | | | | | | | daily | | | | | | + + + +---------+------+------+-------+ | DOXERCALCIFEROL | Inject into the | | 0 | | | Activ | | (HECTOROL IV) | vein (IV). | | | | | e | + + + +---------+------+------+-------+ | cinacalcet | Take 90 mg by mouth | | 0 | | | Activ | | (SENSIPAR) 90 mg | once daily. | | | | | e | | oral tablet | Administer with | | | | | | | | food. | | | | | | + + + +---------+------+------+-------+ Active Problems + + + | Problem | Noted Date | + + + | Complication of vascular access for dialysis | 08/18/2015 | + + + + + | Overview: Having multiple declots needed for her av fistula - | | it has a stent in it now. | + + + + + | Anemia of chronic kidney failure | 12/19/2012 | + + + | Obesity (BMI 30-39.9) | 12/19/2012 | + + + + + | Overview: 65 03/07" | | 224 lb | | BMI 36 | + + + + + | Allergic purpura- MEDICARE 2728 | 10/25/2012 | + + + | HSP (Henoch-Schonlein purpura) nephritis | 10/24/2012 | + + + + + | Overview: Skin | | Joints | | GI tract | | Kidneys | | Kidney transplant recurrence 35% (13-46%) | | Kidney transplant loss due to recurrence 11% (2-16%) | + + Resolved Problems + + + + | Problem | Noted | Resolved | | | Date | Date | + + + + | Patient on peritoneal dialysis | 12/20/19 | | | | 13 | 5 | + + + + + + | Overview: May 2012 | | LLQ exit site | | 2 exit site infections | + + + + + + | Essential hypertension | 12/20/19 | | | | 13 | 5 | + + + + + + | Overview: ICD10 | + + + + + + | Fever blister | 12/20/19 | | | | 13 | 5 | + + + + + + | Overview: Lips | + + Family History + + +------+ + | Medical History | Relation | Name | Comments | + + +------+ + | Diabetes | Maternal | | Type 2 | | | Aunt | | | + + +------+ + | Stroke | Maternal | | | | | Grandfath | | | | | er | | | + + +------+ + | Hypertension | Maternal | | | | | Grandmoth | | | | | er | | | + + +------+ + | Cancer | Paternal | | Lung | | | Grandfath | | | | | er | | | + + +------+ + | Hypertension | Paternal | | | | | Grandfath | | | | | er | | | + + +------+ + | Hypertension | Paternal | | | | | Grandmoth | | | | | er | | | + + +------+ + + +------+--------+ + | Relation | Name | Status | Comments | + +------+--------+ + | Father | | Alive | | + +------+--------+ + | Maternal Aunt | | | | + +------+--------+ + | Maternal Grandfather | | | | + +------+--------+ + | Maternal Grandmother | | | | + +------+--------+ + | Mother | | Alive | | + +------+--------+ + | Paternal Grandfather | | | | + +------+--------+ + | Paternal Grandmother | | | | + +------+--------+ + Social History + +-------+ +--------+------+ | [...] on file | | + + + Last Filed Vital Signs + + + + + | Vital Sign | Reading | Time Taken | Comments | + + + + + | Blood Pressure | 122/74 | 05/24/2016 10:48 AM | RA adult size 12 | | | | PDT | manual | + + + + + | Pulse | 74 | 05/24/2016 10:48 AM | | | | | PDT | | + + + + + | Temperature | 36.6 C (97.8 F) | 11/17/2015 10:38 AM | | | | | PDT | | + + + + + | Respiratory Rate | - | - | | + + + + + | Oxygen Saturation | 98% | 12/19/2012 2:45 PM | | | | | PDT | | + + + + + | Inhaled Oxygen | - | - | | | Concentration | | | | + + + + + | Weight | 96.9 kg (213 lb 10 | 05/24/2016 10:48 AM | | | | oz) | PDT | | + + + + + | Height | 166.2 cm (5' 5.43") | 05/24/2016 10:48 AM | | | | | PDT | | + + + + + | Body Mass Index | 35.08 | 05/24/2016 10:48 AM | | | | | PDT | | + + + + + Plan of Treatment +--------+ + + + + | Date | Type | Specialty | Care Team | Description | +--------+ + + + + | 05/04/ | Hospital | Adult Acute Care | El Starr MD | | | 3 | Encounter | | [address] | | | | | | [place], [place] | | | | | | [address] | | | | | | [phone] | | | | | | | | +--------+ + + + + + + + + + | Health Maintenance | Due Date | Last | Comments | | | | Done | | + + + + + | Pneumococcal | | 06/22/19 | | | vaccination (2 of 3 | 3 | 13 | | | - PPSV23) | | | | + + + + + | Influenza (Flu) | | 12/12/19 | | | vaccination (#1) | 0 | 19, | | | | | 12/14/19 | | | | | 13 | | + + + + + Results Not on filefrom Last 3 Months Insurance + +--------+ +--------+ + +--------+ | Payer | Benefi | Subscriber | Effect | Phone | Address | Type | | | t Plan | ID | eboni | | | | | | / | | Dates | | | | | | Group | | | | | | + +--------+ +--------+ + +--------+ | MEDICARE | MEDICA | [id number] | 05/05/19 | [phone] | [address] | Medica | | | RE A & | | 13-Pre | 1 | [phone] | re | | | B | | sent | | [place] | | | | | | | | [address] | | + +--------+ +--------+ + +--------+ | GRAIN OILSEED OR PASTURE GROWER MEDICAID | GRAIN OILSEED OR PASTURE GROWER | [id number] | Effect | | | Medica | | | EASTER | | eboni | | | id | | | [place] | | for | | | | | | | | all | | | | | | | | dates | | | | + +--------+ +--------+ + +--------+ | MEDICARE RENAL | MEDICA | [id number] | Effect | | RENAL | Agency | | RECIPIENT EVAL | RE | | eboni | | DEPT [id number] | | | | RENAL | | for | | [place], | | | | RECIPI | | all | | [place] [address] | | | | ENT | | dates | | | | | | EVAL | | | | | | + +--------+ +--------+ + +--------+ + +--------+ +--------+ + + | Guarantor Name | Accoun | Relation to | Date | Phone | Billing Address | | | t Type | Patient | of | | | | | | | | | | + +--------+ +--------+ + + | Dara Weldon | Person | Self [birth year] | [address] | | | al/Fam | | 1994 | [phone] | [address] [place] | | | [place] | | | 2 (Home) | [address] | | | | | | [phone] | | | | | | | 0 (Work) | | + +--------+ +--------+ + + | CORY ALVES | Wanderia | Mother | [birth year] | [address] | | | l | | 1899 | [phone] | [address] [place] | | | [place] | | | 2 (Home) | [address] | | | g | | | | | + +--------+ +--------+ + +
--- OUTSIDE RECORDS SUMMARY | 2019-12-25 21:20 | XMS | Encounter Summary ---
Demographics + + + | Address | [address] | | | [place] [address] | + + + | Home Phone | | + + + | Preferred Language | Unknown | + + + | Marital Status | Single | + + + | Anabaptism Affiliation | Unknown | + + + | Race | White | + + + | Ethnic Group | Not or | + + + Author + + + | Author | [facility] | + + + | Organization | [facility] | + + + | Address | Unknown | + + + | Phone | Unavailable | + + + Support + + + + + | Name | Relationship | Address | Phone | + + + + + | Cory Weldon | ECON | [address] | | | | | [place] [address] | | + + + + + | Thania Mallory | ECON | [address] | | | | | [place] [address] | | + + + + + | Deidra Weldon | ECON | [address] | | | | | [place] | | | | | [address] | | + + + + + Care Team Providers + +------+ + | Care Campus Safety Officer Name | Role | Phone | + +------+ + | Jonathan Alonso MD | PCP | | + +------+ + Encounter Details +--------+ + + + + | Date | Type | Department | Care Team | Description | +--------+ + + + + | 07/14/ | Abstract | Clinical | [facility], | | | 2016 | | Transplant Services | [address] | | | | | [address] | [address] | | | | | [place], | [place], [place] | | | | | [place] [address] | [address] | | | | | [phone] | [phone] | | | | | | | [...] [address] | | | | | | [place] | | | | | | [address] | | | | | | [phone] | | | | | | | | +--------+ + + + + documented as of this encounter Visit Diagnoses Not on filedocumented in this encounter"
--- OUTSIDE RECORDS SUMMARY | 2019-12-25 21:20 | XMS | Encounter Summary ---
Demographics + + + | Address | [address] | | | [place] [address] | + + + | Home Phone | | + + + | Preferred Language | Unknown | + + + | Marital Status | Single | + + + | Buddhist Affiliation | Unknown | + + + | Race | White | + + + | Ethnic Group | Not or | + + + Author + + + | Author | [facility] | + + + | Organization | [facility] | + + + | Address | Unknown | + + + | Phone | Unavailable | + + + Support + + + + + | Name | Relationship | Address | Phone | + + + + + | Cory Weldon | ECON | [address] | | | | | [place] [address] | | + + + + + | Thania Mallory | ECON | [address] | | | | | [place] [address] | | + + + + + | Deidra Weldon | ECON | [address] | | | | | [place] | | | | | [address] | | + + + + + Care Team Providers + +------+ + | Care Handhole Machine Operator Name | Role | Phone | + +------+ + | Jonathan Alonso MD | PCP | | + +------+ + Reason for Visit + + + | Reason | Comments | + + + | Transplant Status | Delisting | | Change | | + + + Encounter Details +--------+ + + + + | Date | Type | Department | Care Team | Description | +--------+ + + + + | 07/12/ | Documentati | Clinical | Kelsi Martinez, | Transplant Status | | 2017 | on | Transplant Services | RN [address] | Change (Delisting) | | | | [address] | [facility] | | | | | [place], | [place], [place] | | | | | [place] [address] | [address] | | | | | [phone] | | | +--------+ + + + [...] Telephone Encounter - Kelsi Martinez RN - 07/12/2016 10:11 AM PDTConfirmed with pt that she would like to be delisted until she is more prepared to proceed with the transplant proc ess. Letter confirming pt is delisted sent to pt and pt was delisted in [facility]. documented in this encounter Plan of Treatment +--------+ + + + + | Date | Type | Specialty | Care Team | Description | +--------+ + + + + | 05/04/ | Hospital | Adult Acute Care | El Starr MD | | | 2022 | Encounter | | [address] | | | | | | [place], [place] | | | | | | [address] | | | | | | [phone] | | | | | | | | +--------+ + + + + documented as of this encounter Visit Diagnoses Not on filedocumented in this encounter"
--- OUTSIDE RECORDS SUMMARY | 2019-12-25 21:21 | XMS | Encounter Summary ---
Demographics + + + | Address | [address] | | | [place] [address] | + + + | Home Phone | | + + + | Preferred Language | Unknown | + + + | Marital Status | Single | + + + | Yazidism Affiliation | Unknown | + + + | Race | White | + + + | Ethnic Group | Not or | + + + Author + + + | Author | [facility] | + + + | Organization | [facility] | + + + | Address | Unknown | + + + | Phone | Unavailable | + + + Support + + + + + | Name | Relationship | Address | Phone | + + + + + | Cory Weldon | ECON | [address] | | | | | [place] [address] | | + + + + + | Thania Mallory | ECON | [address] | | | | | [place] [address] | | + + + + + | Deidra Weldon | ECON | [address] | | | | | [place] | | | | | [address] | | + + + + + Care Team Providers + +------+ + | Care Dog License Officer Supervisor Name | Role | Phone | + +------+ + | Jonathan Alonso MD | PCP | | + +------+ + Reason for Visit + + + | Reason | Comments | + + + | Disorder of kidney | | + + + Office Visit - E/M Services (Routine) +--------+--------+ + + + + | Status | Reason | Specialty | Diagnoses / | Referred By | Referred To | | | | | Procedures | Contact | Contact | +--------+--------+ + + + + | Closed | | Pediatric | | Gavin | Karthikeyan Renal | | | | Nephrology | | Jonathan Gallagher, | [address] | | | | | | MD REYES | Param | | | | | | [address] | [facility] | | | | | | [address] | [address] | | | | | | [address] | floor | | | | | | [place], | [place], [place] | | | | | | [place] | [address] | | | | | | [address] | Phone: | | | | | | Phone: | [phone] | | | | | | [phone] | | | | | | | Fax: | | | | | | | [phone] | | +--------+--------+ + + + + Encounter Details +--------+---------+ + + + | Date | Type | Department | Care Team | Description | +--------+---------+ + + + | 05/24/ | Office | Specialty Clinics | Sudhakar Joy | HSP | | 2017 | Visit | at [facility] [address] | DMD [address] | (David | | | | [address] | [address] | purpura) nephritis | | | | [place] | [place], [place] | (Primary Dx); Anemia | | | | [facility], | [address] | of chronic kidney | | | | 7th floor | [phone] | failure, stage 5 | | | | [place], [place] | | ([facility]) | | | | [address] | | | | | | [phone] | | | +--------+---------+ + + + Social History + +-------+ [...] + + documented as of this encounter Last Filed Vital Signs + + + [...] + + + + | Temperature | - | - | | + + + + + | Respiratory Rate | - | - | | + + + + + | Oxygen Saturation | - | - | | + [...] + + + documented in this encounter Patient Instructions Patient Instructions Sudhakar Joy MD - 05/24/2016 11:15 AM PDTBP 122/74[RA adult siz e 12 manual[ | Pulse 74 | Ht 1.662 m (5' 5.43") | Wt 96.9 kg (213 lb 10 oz) | LMP 05/17/2013 | BMI 35.08 kg/(m^2) All looks good with dialysis. You just need clean tests to get on the list for transplant. See me in six months. documented in this encounter Progress Notes Kelsi Martinez RN - 05/24/2016 11:15 AM PDTMet with pt and her mother, confirmed pt vikki pratt two pt identifier (name and ). Discussed with pt her transplant status and her current marijuana use. Asked pt if she felt comfortable with having a drug screen done today and i f she has remained off marijuana. Pt stated that she smoked marijuana about one month ago. Talked with her about how that was not the agreement. She committed to stay clean for two months so the drug screens could be started. Let her know that I would give her until mid-M ay but come that time I will ask her to do a drug screen. If she doesn't do it or if it com es out positive we will close her referral. Discussed with her too, that during that time s he may not miss or cut any of her dialysis runs short. If she does miss, then her referral will also be closed. Encouraged her that she was doing well with her phosphorus and her albumin. Then talked wit h pt that just because the transplant referral is closed does not mean that she could not be referred for transplant. Her adult teacher lip reading could refer her to adult transplant when s he was in a place where she was more prepared for transplant and the expectations that accom pany being ready for transplant. I did stress to her that this was the last time that I wou ld allow her any slack. Either she stepped up and showed she was ready for transplant or we would be closing the referral. Pt acknowledged understanding of the plan, repeated it back and agreed to the plan. Sudhakar Saleem MD - 05/24/2016 11:15 AM PDTFormatting of this note might be differen t from the original. Pediatric Nephrology Dara was seen on 05/24/2016 for Chief Complaint Patient presents with Disorder of kidney . The problem list for her is: Patient Active Problem List Diagnosis HSP (Henoch-Schonlein purpura) nephritis Allergic purpura- MEDICARE 2728 Anemia of chronic kidney failure Obesity (BMI 30-39.9) Complication of vascular access for dialysis (HCC) Dara has the following complaints/concerns: She continues on hemodialysis which is going well. She has not been listed for renal transplant due to past hx of marijuana intake. She says she has been off for a month. She is living with her sister. She would like to get on the transplant list. cinacalcet (SENSIPAR) 90 mg oral tablet, Take 90 mg by mouth once daily. Administer with fo od. clopidogrel 75 mg oral tablet, Take 75 mg by mouth once daily. Take one tablet by mouth beck ly DOXERCALCIFEROL (HECTOROL IV), Inject into the vein (IV). EPOETIN JOYCE INJ, by Injection route. FOLIC ACID/VITAMIN B COMP W-C (DIALYVITE ORAL), Take 1 tablet by mouth once daily. iron sucrose 100 mg iron/5 mL intravenous solution, Inject 100 mg into the vein (IV) once. Per dialysis unit sevelamer carbonate (RENVELA) 800 mg Oral tablet, Take 3,200 mg by mouth with each meal and with snack(s). 3 with snacks Physical Examination: BP 122/74[RA adult size 12 manual[ | Pulse 74 | Ht 1.662 m (5' 5.43") | Wt 96.9 kg (213 lb 10 oz) | LMP 05/17/2013 | BMI 35.08 kg/(m^2) Gen: No acute distress. No evidence of discomfort. HEENT: Normal exam with no cervical adenopathy, or thyromegaly. Chest: Clear to auscultation bilaterally. Heart: No gallop or murmur with normal S1 and S2. Rate normal. Abd: Soft with no organomegaly, mass, or tenderness. EXt: Normal perfusion, coloration, and warmth to extremities without edema.. Neuro; Normal patellar and ankle reflexes. Lab Results Component Value Date URINEPROTEIN >=500.0 12/20/2012 URINEPH 5.0 12/20/2012 URSPECGRAV 1.010 12/20/2012 URINEGLUCOSE 50.0 12/20/2012 Lab: Recent Labs 03/09/16 04/13/16 05/11/16 BUN 33* 68* 58* CR 7.78* 9.87* 10.18* ALB 3.7 3.8 3.9 CA 9.2 9.7 9.7 PO4 7.3* 7.7* 4.5 NA 137 137 138 K 4.2 5.5* 4.9 CL 98 100 98 BICARB 27 24 24 Lab Results Component Value Date WBC 7.4 05/11/2016 HB 11.6 05/11/2016 HCT 35.6 05/11/2016 PLT 140 05/11/2016 MCV 108.2 05/11/2016 RDW 13.6 05/11/2016 Assessment and Plan:Dara was seen today for disorder of kidney. Diagnoses and all orders for this visit: HSP (Henoch-Schonlein purpura) nephritis:original problem. Anemia of chronic kidney failure, stage 5 (HCC): treated with epogen ESRD; She has CKD stage 6 (on dialysis). She will not be a transplant candidate until she is able to stay off and have three negative tests for marijuana. I spent 31 minutes with this patient including > 50% spent in counseling about current stat us, lab results, and criteria for being listed for transplant. The next appointment is in six months. Sudhakar Joy MD Pediatric Nephrology and Hypertension Services [address] Mail code [id number] [place], [place] [address] documented in this encounter Plan of Treatment +--------+ + + + + | Date | Type | Specialty | Care Team | Description | +--------+ + + + + | 05/04/ | Hospital | Adult Acute Care | El Starr MD | | | 2022 | Encounter | | [address] | | | | | | [place], [place] | | | | | | [address] | | | | | | [phone] | | | | | | | | +--------+ + + + + documented as of this encounter Visit Diagnoses + + | Diagnosis | + + | HSP (Henoch-Schonlein purpura) nephritis (HCC) - Primary Other nephritis and | | nephropathy, not specified as acute or chronic, with specified pathological lesion in | | kidney | + + | Anemia of chronic kidney failure, stage 5 (HCC) | + + documented in this encounter
--- OUTSIDE RECORDS SUMMARY | 2019-12-25 21:21 | XMS | Encounter Summary ---
Demographics + + + | Address | [address] | | | [place] [address] | + + + | Home Phone | | + + + | Preferred Language | Unknown | + + + | Marital Status | Single | + + + | Restoration Affiliation | Unknown | + + + | Race | White | + + + | Ethnic Group | Not or | + + + Author + + + | Author | [facility] | + + + | Organization | [facility] | + + + | Address | Unknown | + + + | Phone | Unavailable | + + + Support + + + + + | Name | Relationship | Address | Phone | + + + + + | Cory Weldon | ECON | [address] | | | | | [place] [address] | | + + + + + | Thania Mallory | ECON | [address] | | | | | [place] [address] | | + + + + + | Deidra Weldon | ECON | [address] | | | | | [place] | | | | | [address] | | + + + + + Care Team Providers + +------+ + | Care Grade School Teacher Name | Role | Phone | + +------+ + | Jonathan Alonso MD | PCP | | + +------+ + Reason for Visit + +--------+ + | Reason | Onset | Comments | | | Date | | + +--------+ + | Laboratory Test | 01/05/ | | | Requested | 2015 | | + +--------+ + Encounter Details +--------+ + + + + | Date | Type | Department | Care Team | Description | +--------+ + + + + | 01/05/ | Telephone | Pediatric | Kelsi Martinez, | Laboratory Test | | 2016 | | Nephrology at | RN [address] | Requested | | | | [place] | [facility] | | | | | [facility] | [place], [place] | | | | | [address] | [address] | | | | | [place] | | | | | | [facility], | | | | | | [address] [place] [address] | | | | | | [place], [place] | | | | | | [address] | | | | | | [phone] | | | +--------+ + + + [...] Telephone Encounter - Kelsi Martinez RN - 01/06/2016 11:32 AM PDTContacted dialysis unit (ABRIL Barber) d/t no drug screen results received after contacting them about 2 weeks ago. This request had not been passed on to the nursing staff. RN will get MD to sign order on M onday, 01/11/2016, and then initiate drug screens. Contacted pt, explained why testing had not been initiated and that to anticipate her first test will be next week. Pt acknowledged understanding of the plan, repeated it back and ag alfredo to the plan. documented in this e ncounter Plan of Treatment +--------+ + + + + | Date | Type | Specialty | Care Team | Description | +--------+ + + + + | 05/04/ | Hospital | Adult Acute Care | El Starr MD | | | 2022 | Encounter | | [address] | | | | | | [place], [place] | | | | | | [address] | | | | | | [phone] | | | | | | | | +--------+ + + + + documented as of this encounter Visit Diagnoses Not on filedocumented in this encounter"
--- OUTSIDE RECORDS SUMMARY | 2019-12-25 21:21 | XMS | Encounter Summary ---
Demographics + + + | Address | [address] | | | [place] [address] | + + + | Home Phone | | + + + | Preferred Language | Unknown | + + + | Marital Status | Single | + + + | Congregational Affiliation | Unknown | + + + | Race | White | + + + | Ethnic Group | Not or | + + + Author + + + | Author | [facility] | + + + | Organization | [facility] | + + + | Address | Unknown | + + + | Phone | Unavailable | + + + Support + + + + + | Name | Relationship | Address | Phone | + + + + + | Cory Weldon | ECON | [address] | | | | | [place] [address] | | + + + + + | Thania Mallory | ECON | [address] | | | | | [place] [address] | | + + + + + | Deidra Weldon | ECON | [address] | | | | | [place] | | | | | [address] | | + + + + + Care Team Providers + +------+ + | Care Hop Farmer Name | Role | Phone | + +------+ + | Jonathan Alonso MD | PCP | | + +------+ + Reason for Visit + +--------+ + | Reason | Onset | Comments | | | Date | | + +--------+ + | Lab Results | 02/02/ | | | | 2015 | | + +--------+ + Encounter Details +--------+ + + + + | Date | Type | Department | Care Team | Description | +--------+ + + + + | 02/02/ | Telephone | Clinical | Kelsi Martinez, | Lab Results | | 2015 | | Transplant Services | RN [address] | | | | | [address] | [facility] | | | | | [place], | [place], [place] | | | | | [place] [address] | [address] | | | | | [phone] | | | +--------+ + + + [...] Telephone Encounter - Kelsi Martinez RN - 02/03/2016 1:26 PM PSTReceived positive blood drug screen (marijuana) from pt's test done 01/13/2016. Contacted pt who stated that she h ad smoked marijuana about a week before the test. Discussed with her that in the adult [facility] program a positive test generally means that they can't be re-tested for six months. However, I recognize that she is trying and want to get her on the transplant list so she m ay be transplanted. Explained the concern with smoking pot after transplant and the risk of aspergillis infection. Pt was unaware of this risk and voiced that she is glad that she was made aware of this. Discussed with her that I would contact her in four weeks and we can t ry to test her again. Let her know that once we started the testing the requested times cou ld be random, meaning that she could have a drug screen then a week later or maybe five week s later we would request another one. It would not automatically be every four weeks. Remin ded her that we have the same goal, to get her transplanted so I need her to stop the mariju vishal. Pt was in full agreement with the plan. Contacted the dialysis unit, spoke with ABRIL Casanova to notify her of the drug test plan. Oswaldo alvarenga explained that marijuana is stored in the fat cells and pt is a large person with fat s dale so the likelihood that the marijuana would be out of her system in four weeks was mini mal. Her recommendation was that pt wait at least two months but more likely three months u ntil testing began given her size. an/ssn 2 4 operator agreed to discuss this further with pt and o ffer encouragement when she came to the unit on 02/05/16 for her dialysis treatment. She di d say that pt and the nurse discussed marijuana and pt stated she is avoiding smoking it and even being around second hand smoke. Contacted pt with the information that was given to me. Suggested that we wait the three m onths before attempting any more drug screening. Pt would really like to try a repeat blood test in two months. The agreement was that I would contact her the end of March, get a d rug test and if it was positive we would repeat it in four weeks. If that one was positive then she would have to be deferred from proceeding with being listed for transplant for six months. Explained to her that the adult transplant team has very strict rules and once she transfers to adult they will not give her multiple chances for a negative drug screen. Pt ac knowledged understanding of the plan, repeated it back and agreed to the plan. documented in this e ncounter Plan of Treatment +--------+ + + + + | Date | Type | Specialty | Care Team | Description | +--------+ + + + + | 05/04/ | Hospital | Adult Acute Care | El Starr MD | | | 2022 | Encounter | | [address] | | | | | | [facility] [place] | | | | | | [address] | | | | | | [phone] | | | | | | | | +--------+ + + + + documented as of this encounter Visit Diagnoses Not on filedocumented in this encounter"
--- OUTSIDE RECORDS SUMMARY | 2019-12-25 21:21 | XMS | Encounter Summary ---
Demographics + + + | Address | [address] | | | [place] [address] | + + + | Home Phone [...] Author + + + | Author | [facility] | + + + | Organization | [facility] | + + + | Address | Unknown | + + + | Phone | Unavailable | + + + Support + + + + + | Name | Relationship | Address | Phone | + + + + + | Cory Weldon | ECON | [address] | | | | | [place] [address] | | + + + + + | Thania Mallory | ECON | [address] | | | | | [place] [address] | | + + + + + | Deidra Weldon | ECON | [address] | | | | | [place] | | | | | [address] | | + + + + + Care Team Providers + +------+ + | Care Pain Management Nurse Name | Role | Phone | + +------+ + | Jonathan Alonso MD | PCP | | + +------+ + Reason for Visit + +--------+ + | Reason | Onset | Comments | | | Date | | + +--------+ + | Laboratory Test | 11/25/ | [facility] | | Requested | 2015 | | + +--------+ + Encounter Details +--------+ + + + + | Date | Type | Department | Care Team | Description | +--------+ + + + + | 11/25/ | Telephone | Pediatric | Sudhakar Joy | Laboratory Test | | 2015 | | Nephrology at | MD Emanuel [address] [facility] | Requested ([facility]) | | | | [place] | [facility] | | | | | [facility] | [place], [place] | | | | | [address] [facility] | [address] | | | | | [place] | [phone] | | | | | [facility], | | | | | | [address] [place] [address] | | | | | | [place], [place] | | | | | | [address] | | | | | | [phone] | | | +--------+ + + + [...] this encounter Miscellaneous Notes Telephone Encounter - Diana Martin RN - 11/26/2015 1:29 PM PDTCalled pt regarding s tarting her Urine Drug Screens. LM on VM: please c/b regarding starting some lab testing. documented in this encounter Plan of Treatment +--------+ + + + + | Date | Type | Specialty | Care Team | Description | +--------+ + + + + | 05/04/ | Hospital | Adult Acute Care | El Starr MD | | | 2022 | Encounter | | [address] | | | | | | [place], [place] | | | | | | [address] | | | | | | [phone] | | | | | | | | +--------+ + + + + documented as of this encounter Visit Diagnoses Not on filedocumented in this encounter"
--- OUTSIDE RECORDS SUMMARY | 2019-12-25 21:21 | XMS | Encounter Summary ---
Demographics + + + | Address | [address] | | | [place] [address] | + + + | Home Phone | | + + + | Preferred Language | Unknown | + + + | Marital Status | Single | + + + | Yazidi Affiliation | Unknown | + + + | Race | White | + + + | Ethnic Group | Not or | + + + Author + + + | Author | [facility] | + + + | Organization | [facility] | + + + | Address | Unknown | + + + | Phone | Unavailable | + + + Support + + + + + | Name | Relationship | Address | Phone | + + + + + | Cory Weldon | ECON | [address] | | | | | [place] [address] | | + + + + + | Thania Mallory | ECON | [address] | | | | | [place] [address] | | + + + + + | Deidra Weldon | ECON | [address] | | | | | [place] | | | | | [phone] | | + + + + + Care Team Providers + +------+ + | Care Gsa Coordinator Name | Role | Phone | + +------+ + | Jonathan Alonso MD | PCP | | + +------+ + Reason for Visit + + + | Reason | Comments | + + + | Social Work Waitlist | [place] clinic visit - psychosocial readiness update | | Update | | + + + Encounter Details +--------+ + + + + | Date | Type | Department | Care Team | Description | +--------+ + + + + | 08/17/ | Documentati | Clinical | Mariza Hsu | Social Work Waitlist | | 2016 | on | Transplant Services | [address] | Update ([place] | | | | [address] | [address] | clinic visit - | | | | [place], | [place], [place] | psychosocial | | | | [place] [address] | [address] | readiness update) | | | | [phone] | | | +--------+ + + + [...] this encounter Miscellaneous Notes Telephone Encounter - Mariza Hsu - 08/24/2015 9:55 AM PDTPediatric Transplant Soc ial Work Evaluation - Update Purpose of Interview: Dara Weldon is a 20 year old female who met with SMILEY FANG on August 18, 2015 while at her [facility] appt at [facility]. Also present in visit today is pt's mom, Jessie and p t's friend, Cal (19) who has been her "best friend" always. Pt has had SMILEY FANG WL updates done on May 12, 2015; 2014; 2013 plus follow up contacts on her support plan changes 06-04-2014. Patient s original pre-listing psychosocial evaluation was done on 12-19-12. Pt is inactive on the list due to manly psychosocial factors. Current Living Situation: Dara reports she just moved "one week ago" into her own one-bedroom apartment in [place], [place]. She is now estranged from her friend Kiki (where pt lived 3 months ago when thi s was reported to be a stable location for her) and is no longer allowed to go to that home. Mom says that pt's sister Saundra, helped her secure the apartment and the family is helping Dara with furniture. Dara says she is living alone but friends visit, such as Cal, who also lives in [place]. Patient has no pets at this time. Jessie remains living in [facility], with her partner and says she has fairly frequent contact with Dara. Mom believes rosa s is a positive step of her maturing that she has her own place. Patient's education/employment/activities: Dara is not currently going to college and is not working. Patient says she is still not using tobacco or alcohol but does continue to smoke marijuana despite being told at last clinic appt 3 months ago this is not acceptable for transplant l isting policy. She could not estimate how frequently but says she believes that when she re ceives dialysis this is "all removed" from her system. Dara says she does this to address back pain that "nothing else works for." SW encouraged her to speak with her doctors about pain management. 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 [place] SW again told pt she would need to abstain from marijuana use and have evide nce of her abstinence verified by three consecutive, random drug screens in order to be acti ve on the waiting list per policy of CTS at [facility]. Pt told to call ANNALISA transfer car operator drier Coordinator onc e she was ready to initiate these screens. Pt states she understands. Parents' Employment: No changes she is aware of in her parents employment. Pt's mom Thania is employed full-ti me at a long-term job. Her father Clayton is working. Patient has some contact, by phone, wit h him and is trying to gradually "rebuild" a relationship with her father. Her stepmother Dottie nava is more resistant to a lot of interaction with Dara at this time. Financial/Insurance Issues: Patient receives SSI, of $415 per month. She also receives $194 per month of SNAP. SW inf ormed her she may be able to request an increase as she is now paying her own rent to the [facility] of $733. Patient says her rent is low and she is able to cover it with her resources. She remains thoroughly well insured as a dual-eligible under Medicare (ESRD) and Medicaid (SSI). She has low OOP costs expected for direct medical care and prescriptions; she has so me limited reimbursement coverage for medical travel/stay. No other resources she identifies . There is some limited help from family at times when necessary. Fundraising Plan: Patient has a BERRY campaign to gather funds for transplant related expenses. Her mom is aw are of the details and helps with events and promoting contributions. They report having ac crued a balance of $2,600.00 in BERRY plus Jessie has an initial $300 saved to use up front for the travel/lodging. There is partial OHP allowance: Lodging $40 per night, $12 per day fo od, mileage .25 cents per mile (current rates) but can often take time to obtain reimburseme nt. BERRY can help by reimbursing from her account additional funds for this stay. Dialysis/compliance update: Dara reports that dialysis is going fair, except for continual difficulties with her fist sugar. She denies missing any runs, was late for one but overall attending. She says her las t phosphorus was 8.5 which she knows isn't in range, however she did manage to have one in M ay of 6.0 and was complimented on this achievement, reflecting she can do it. Patient says she is "getting better" about taking pills (binders) as she has used tricks to prevent her f rom forgetting such as putting them in the same place where she sees them and carrying them with her. She will also restart Sensipar. SW encouraged her to continue to strive to show she is capable of keeping this in range consistently as a reflection of how she may do after tx. Patient's Mood/Adjustment: Dara says she stopped taking the anti-depressant, Zoloft, her dialysis physician had rece ntly prescribed a few months ago. She did not like the side effects (gave her stomach ache) and she denies having problems or concerning symptoms with her mood. Patient denies experi encing any SA/SI; denies impact on her daily functioning. SW reviewed things to watch for i n regards to worsening mood. Mood/affect appropriate today. Post Hospital Care Plan: Patient lists her mother Thania as primary support and still unsure of the specific second anne support except to list her sisters or Cal who drives and says he is available to sup port her, stay with her, etc. The details will need to be verified by [place] SW when she is melita ser to being made active on the WL. Thania says she can take as much time off as needed to provide primary support. They would like to stay in local [place] but this can be evaluated at the franco e of transplant if an option exists. Family will use (BERRY) funds raised plus the [facility] edgar marroquin. Family aware of the demanding schedule of frequent labs and clinic visits during the month following surgery. Plan: Patient remains at elevated risk for non-adherence due to age and on-going difficulty of el evated phosphorous; however she has improved some the past three months and has neared her t arget level at times. She is smoking marijuana and will need to quit and verify being clean by random UAs over three months. She is in a very new living situation in own apartment wh ich should be monitored for stability. Family has been successful in reaching goal with fun draising campaign with approximately $3,000 prior to transplant. Patient will need to comp lete a new Planning Ahead Form once she is completing steps for activation on [...] 3 months at next clinic appt in November 2015. At that time if sufficient p rogress is made, other update testing may be able to be determined and/or scheduled. Mariza Hsu, BAGGAGEMAN, CLINICAL RESEARCHER Pediatric Renal Transplant Medical Parasitologist pg. #[phone] documented in this en counter Plan of [...] [facility] | | | | | | [address] | | | | | | [phone] | | | | | | | | +--------+ + + + + documented as of this encounter Visit Diagnoses Not on filedocumented in this encounter
--- OUTSIDE RECORDS SUMMARY | 2019-12-25 21:21 | XMS | Encounter Summary ---
Demographics + + + | Address | [address] | | | [place] [address] | + + + | Home Phone | | + + + | Preferred Language | Unknown | + + + | Marital Status | Single | + + + | Baptist Affiliation | Unknown | + + + | Race | White | + + + | Ethnic Group | Not or | + + + Author + + + | Author | [facility] | + + + | Organization | [facility] | + + + | Address | Unknown | + + + | Phone | Unavailable | + + + Support + + + + + | Name | Relationship | Address | Phone | + + + + + | Cory Weldon | ECON | [address] | | | | | [place] [address] | | + + + + + | Thania Mallory | ECON | [address] | | | | | [place] [address] | | + + + + + | Deidra Weldon | ECON | [address] | | | | | [place] | | | | | [address] | | + + + + + Care Team Providers + +------+ + | Care Refuse And Recycling Worker Name | Role | Phone | + +------+ + | Jonathan Alonso MD | PCP | | + +------+ + Reason for Visit + +--------+ + | Reason | Onset | Comments | | | Date | | + +--------+ + | Social work | 10/08/ | SW assistance with SSA | | consultation | 2015 | | + +--------+ + Encounter Details +--------+ + + + + | Date | Type | Department | Care Team | Description | +--------+ + + + + | 10/08/ | Telephone | Clinical | Mariza Hsu | Social work | | 2015 | | Transplant Services | [address] | consultation (ANNALISA | | | | [address] | [address] | assistance with SSA) | | | | [place], | [place], [place] | | | | | [place] [address] | [address] | | | | | [phone] | | | +--------+ + + + [...] Notes Telephone Encounter - Mariza Hsu - 10/14/2015 8:31 AM PDTTX SW received call from pt who was asking for help paper production engineer she recently received from [facility] regarding her eligibility on-going for SSI. Per pt it was a phone screening asking her questions about her health st atus and income. Pt claims she has not received any paperwork for renewal or notification o f any changes in her SSI or related Medicaid. Pt says she answered these questions and ther e are no changes that would impact her SSI. She remains on dialysis, unable to work, is rec eiving no income (other than existing SSI pierson award). Pt [facility] and paying rent. She believes she was receiving approximately $450 in SSI, however prior to recent move to own place, she was living with mom and friends and not paying rent f ormally. [place] SW encouraged pt to contact [facility] and let them know about her now paying rent so her award amount may increase to full $733 mo; also reminded her to give [facility] new address for mail. Pt says everything else going well; no other psychosocial needs she can identify today. Pt still waiting for random drug screens to be done to verify she has remained free from use o f marijuana since September 07, 2015. Pt reaffirmed her friend, Chey Cotto, is still inter ested in being screened as pt's donor, but pt is waiting to hear back from Peds Renal RN. T Alesha SW advised pt to tell her friend to call in for information as next step but needs to come from Chey. Pt understands steps. SMILEY FNAG will continue to follow patient. Mariza Hsu, NOISE ABATEMENT ENGINEER, GAS LINE REPAIRER Renal Transplant Consulting Networking Engineer pg. #[phone] documented in this en counter Plan of Treatment +--------+ + + + + | Date | Type | Specialty | Care Team | Description | +--------+ + + + + | 05/04/ | Hospital | Adult Acute Care | El Starr MD | | | 2022 | Encounter | | [address] | | | | | | [place] | | | | | | [address] | | | | | | [phone] | | | | | | | | +--------+ + + + + documented as of this encounter Visit Diagnoses Not on filedocumented in this encounter"
--- OUTSIDE RECORDS SUMMARY | 2019-12-25 21:21 | XMS | Encounter Summary ---
Demographics + + + | Address | [address] | | | [place] [address] | + + + | Home Phone | | + + + | Preferred Language | Unknown | + + + | Marital Status | Single | + + + | Yazdanism Affiliation | Unknown | + + + | Race | White | + + + | Ethnic Group | Not or | + + + Author + + + | Author | [facility] | + + + | Organization | [facility] | + + + | Address | Unknown | + + + | Phone | Unavailable | + + + Support + + + + + | Name | Relationship | Address | Phone | + + + + + | Cory Weldon | ECON | [address] | | | | | [place] [address] | | + + + + + | Thania Mallory | ECON | [address] | | | | | [place] [address] | | + + + + + | Deidra Weldon | ECON | [address] | | | | | [place] | | | | | [address] | | + + + + + Care Team Providers + +------+ + | Care Strike On Machine Operator Name | Role | Phone | + +------+ + | Jonathan Alonso MD | PCP | | + +------+ + Reason for Visit + +--------+ + | Reason | Onset | Comments | | | Date | | + +--------+ + | Laboratory Test | 12/17/ | Drug screens | | Requested | 2015 | | + +--------+ + Encounter Details +--------+ + + + + | Date | Type | Department | Care Team | Description | +--------+ + + + + | 12/17/ | Telephone | Clinical | Kelsi Martinez, | Laboratory Test | | 2015 | | Transplant Services | RN [address] | Requested (Drug | | | | [address] | [facility] | screens) | | | | [place], | [place], [place] | | | | | [place] [address] | [address] | | | | | [phone] | | | +--------+ + + + [...] Telephone Encounter - Kelsi Martinez RN - 12/18/2015 10:05 AM PDTReceived voice mail fro m pt stating that she has been clean for a few months and would like to initiate her random monthly drug screens to move towards being able to be listed for donor kidney trans plant. Pt is unable to have urine test d/t lack of urine output. Contacted pt's dialysis u nit who agreed to initiate the drug screens, particularly for marijuana. Attempted to conta ct pt to let her know that this would be started as soon as the dialysis unit was able to ge t it into the system. documented in this encounter Plan of Treatment +--------+ + + + + | Date | Type | Specialty | Care Team | Description | +--------+ + + + + | 05/04/ | Hospital | Adult Acute Care | El Starr MD | | | 2022 | Encounter | | [address] | | | | | | [place], [place] | | | | | | [address] | | | | | | [phone] | | | | | | | | +--------+ + + + + documented as of this encounter Visit Diagnoses Not on filedocumented in this encounter"
--- OUTSIDE RECORDS SUMMARY | 2019-12-25 21:21 | XMS | Encounter Summary ---
Demographics + + + | Address | [address] | | | [place] [address] | + + + | Home Phone | | + + + | Preferred Language | Unknown | + + + | Marital Status | Single | + + + | Christian Affiliation | Unknown | + + + [...] | | | | | [place] [address] | | + + + + + | Thania Mallory | ECON | [address] | | | | | [place] [address] | | + + + + + | Deidra Weldon | ECON | [address] | | | | | [place] | | | | | [address] | | + + + + + Care Team Providers + +------+ + | Care Laborer Aquatic Life Name | Role | Phone | + +------+ + | Jonathan Alonso MD | PCP | | + +------+ + Encounter Details +--------+ + + + + | Date | Type | Department | Care Team | Description | +--------+ + + + + | 11/15/ | Abstract | Pediatric | Sudhakar Joy | | | 2016 | | Nephrology at | MD Emanuel [address] [facility] | | | | | [place] | [facility] | | | | | [facility] | [place], [place] | | | | | [address] | [address] | | | | | [place] | [phone] | | | | | [facility], | | | | | | [address] [place] [address] | | | | | | [place], [place] | | | | | | [address] | | | | | | [phone] | | | +--------+ + + + [...] Denise | | | | | | [place], [place] | | | | | | [address] | | | | | | [phone] | | | | | | | | +--------+ + + + + documented as of this encounter Procedures + +--------+ + + + | Procedure Name | Priori | Date/Time | Associated Diagnosis | Comments | | | ty | | | | + +--------+ + + + | PEDS NEPHROLOGY | Routin | 11/09/2015 | | Results for this | | EXTERNAL RESULTS | e | 1:12 PM | | procedure are in the | | PANEL | | PDT | | results section. | + +--------+ + + + | PEDS NEPHROLOGY | Routin | 10/05/2015 | | Results for this | | EXTERNAL RESULTS | e | 1:12 PM | | procedure are in the | | PANEL | | PDT | | results section. | + +--------+ + + + | PEDS NEPHROLOGY | Routin | 09/09/2015 | | Results for this | | EXTERNAL RESULTS | e | 1:00 PM | | procedure are in the | | PANEL | | PDT | | results section. | + +--------+ + + + documented in this encounter Results PEDS NEPHROLOGY EXTERNAL RESULTS PANEL (11/09/2015 1:12 PM PDT) + + + + + + | Component | Value | Ref Range | Performed | Pathologist | | | | | At | Signature | + + + + + + | BUN, PLASMA | 64 (A) | 7 - 25 mg/dL | NON [facility] | | | (LAB) | | | LAB | | + + + + + + | CREATININE | 10.56 (A) | 0.60 - 1.20 | NON [facility] | | | PLASMA | | mg/dL | LAB | | | (LAB) | | | | | + + + + + + | SODIUM, | 140 | 134 - 145 mEq/L | [facility] | | | PLASMA | | | LAB | | | (LAB) | | | | | + + + + + + | POTASSIUM, | 4.6 | 3.5 - 5.1 mEq/L | [facility] | | | PLASMA | | | LAB | | | (LAB) | | | | | + + + + + + | CHLORIDE, | 102 | 98 - 107 mEq/L | [facility] | | | PLASMA | | | LAB | | | (LAB) | | | | | + + + + + + | TOTAL CO2, | 20 (A) | 21 - 31 mEq/L | [facility] | | | PLASMA | | | LAB | | | (LAB) | | | | | + + + + + + | CALCIUM, | 9.0 | 8.6 - 10.2 | [facility] | | | PLASMA | | mg/dL | LAB | | | (LAB) | | | | | + + + + + + | PHOSPHORUS, | 8.4 (A) | 2.5 - 5.0 mg/dL | [facility] | | | PLASMA | | | LAB | | | (LAB) | | | | | + + + + + + | TOTAL | 6.1 (A) | 6.4 - 8.9 g/dL | [facility] | | | PROTEIN, | | | LAB | | | PLASMA | | | | | | (LAB) | | | | | + + + + + + | ALBUMIN, | 3.6 | 3.5 - 5.7 g/dL | [facility] | | | PLASMA | | | LAB | | | (LAB) | | | | | + + + + + + | ALK PHOS | 133 (A) | 34 - 104 U/L | [facility] | | | | | | LAB | | + + + + + + | LDH, SERUM | 197 | 125 - 220 U/L | [facility] | | | | | | LAB | | + + + + + + | AST(SGOT) | 13 | 13 - 39 U/L | [facility] | | | | | | LAB | | + + + + + + | ALT (SGPT) | 17 | 7 - 52 U/L | [facility] | | | | | | LAB | | + + + + + + | PTH, SERUM | 1,161 (A) | 11 - 80 pg/mL | [facility] | | | | | | LAB | | + + + + + + | WHITE CELL | 9.0 | 4.5 - 11.0 cu | [facility] | | | COUNT | | mm | LAB | | + + + + + + | HEMOGLOBIN | 12.0 | 12.0 - 16.0 | [facility] | | | | | g/dL | LAB | | + + + + + + | HEMATOCRIT | 37.9 | 37 - 47 % | [facility] | | | | | | LAB | | + + + + + + | RDW | 13.9 | 11.0 - 15.0 % | [facility] | | | | | | LAB | | + + + + + + | PLATELET | 172 | 150 - 400 cu mm | [facility] | | | COUNT | | | LAB | | + + + + + + | MCV | 113.7 (A) | 80 - 100 fL | [facility] | | | | | | LAB | | + + + + + + | NEUTROPHIL | 6,183 | 2,000 - 8,800 | [facility] | | | ABSOLUTE - | | perry/uL | LAB | | | [facility] | | | | | + + + + + + | NEUTROPHIL | 68.7 | % | [facility] | | | % | | | LAB | | + + + + + + | LYMPHOCYTE | 23.0 | % | [facility] | | | % | | | LAB | | + + + + + + | MONOCYTE % | 3.2 | % | [facility] | | | | | | LAB | | + + + + + + | EOS % | 4.8 | % | [facility] | | | | | | LAB | | + + + + + + | BASO % | 0.3 | % | [facility] | | | | | | LAB | | + + + + + + | CALCIUM, | 9.3 | 8.4 - 10.2 | [facility] | | | CORRECTED | | mg/dL | LAB | | + + + + + + | ALKALINE | 78.1 (A)Comment: | 21 - 46 | [facility] | | | PHOS, OTHER | Ca*Phos, corrected | | LAB | | | CALC | | | | | + + + + + + | URR | 83 | 65 - 100 % | [facility] | | | | | | LAB | | + + + + + + | KT/V | 2.59Comment: KT/V | | [facility] | | | | Prescribed | | LAB | | + + + + + + + + | Specimen | + + | Blood - Blood | + + + +---------+ + + | Performing | Address | City/State/Zipcode | Phone Number | | Organization | | | | + +---------+ + + | NON [facility] | | | | + +---------+ + + [facility] NEPHROLOGY EXTERNAL RESULTS PANEL (10/05/2015 1:12 PM PDT) + + + + + + | Component | Value | Ref Range | Performed | Pathologist | | | | | At | Signature | + + + + + + | CREATININE | 9.48 (A) | 0.60 - 1.20 | [facility] | | | PLASMA | | mg/dL | LAB | | | (LAB) | | | | | + + + + + + | SODIUM, | 141 | 134 - 145 | [facility] | | | PLASMA | | mmol/L | LAB | | | (LAB) | | | | | + + + + + + | POTASSIUM, | 3.7 | 3.5 - 5.1 | [facility] | | | PLASMA | | mmol/L | LAB | | | (LAB) | | | | | + + + + + + | CHLORIDE, | 104 | 98 - 107 mmol/L | [facility] | | | PLASMA | | | LAB | | | (LAB) | | | | | + + + + + + | TOTAL CO2, | 23 | 21 - 31 mmol/L | [facility] | | | PLASMA | | | LAB | | | (LAB) | | | | | + + + + + + | CALCIUM, | 8.8 | 8.6 - 10.2 | [facility] | | | PLASMA | | mg/dL | LAB | | | (LAB) | | | | | + + + + + + | PHOSPHORUS, | 6.4 (A) | 2.5 - 5.0 mg/dL | [facility] | | | PLASMA | | | LAB | | | (LAB) | | | | | + + + + + + | TOTAL | 5.9 (A) | 6.4 - 8.9 g/dL | [facility] | | | PROTEIN, | | | LAB | | | PLASMA | | | | | | (LAB) | | | | | + + + + + + | ALBUMIN, | 3.5 | 3.5 - 5.7 g/dL | [facility] | | | PLASMA | | | LAB | | | (LAB) | | | | | + + + + + + | ALK PHOS | 123 (A) | 34 - 104 U/L | [facility] | | | | | | LAB | | + + + + + + | LDH, SERUM | 201 | 125 - 220 U/L | [facility] | | | | | | LAB | | + + + + + + | AST(SGOT) | 12 (A) | 13 - 39 U/L | [facility] | | | | | | LAB | | + + + + + + | ALT (SGPT) | 18 | 7 - 52 U/L | [facility] | | | | | | LAB | | + + + + + + | PTH, SERUM | 1,139 (A) | 11 - 80 pg/mL | [facility] | | | | | | LAB | | + + + + + + | VITAMIN D | 40 | 31 - 100 ng/mL | [facility] | | | 25 HYDROXY | | | LAB | | + + + + + + | WHITE CELL | 9.2 | 4.5 - 11.0 K/cu | [facility] | | | COUNT | | mm | LAB | | + + + + + + | HEMOGLOBIN | 11.7 (A) | 12.0 - 16.0 | [facility] | | | | | g/dL | LAB | | + + + + + + | HEMATOCRIT | 35.1 (A) | 37 - 47 % | [facility] | | | | | | LAB | | + + + + + + | RDW | 14.0 | 11 - 15 % | [facility] | | | | | | LAB | | + + + + + + | PLATELET | 192 | 150 - 400 K/cu | [facility] | | | COUNT | | mm | LAB | | + + + + + + | MCV | 112.5 (A) | 80 - 100 fL | [facility] | | | | | | LAB | | + + + + + + | NEUTROPHIL | 5,695 | 2,000 - 8,800 | [facility] | | | ABSOLUTE - | | perry/uL | LAB | | | [facility] | | | | | + + + + + + | NEUTROPHIL | 61.9 | % | [facility] | | | % | | | LAB | | + + + + + + | LYMPHOCYTE | 29.5 | % | [facility] | | | % | | | LAB | | + + + + + + | MONOCYTE % | 3.6 | % | [facility] | | | | | | LAB | | + + + + + + | EOS % | 4.6 | % | [facility] | | | | | | LAB | | + + + + + + | BASO % | 0.4 | % | [facility] | | | | | | LAB | | + + + + + + | IRON SERUM | 74 | 50 - 212 ug/dL | [facility] | | | | | | LAB | | + + + + + + | IRON BIND | 184 (A) | 228 - 428 ug/dL | [facility] | | | CAP SERUM | | | LAB | | + + + + + + | % | 40 | 15 - 50 % | NON [facility] | | | SATURATION | | | LAB | | | TRANSFERRIN | | | | | | , SERUM | | | | | + + + + + + | FERRITIN | 709 (A) | 10 - 291 ng/mL | [facility] | | | | | | LAB | | + + + + + + | CHOLESTEROL | 119 | 0 - 200 mg/dL | [facility] | | | (LAB) | | | LAB | | + + + + + + | TRIGLYCERID | 178 (A) | 0 - 150 mg/dL | [facility] | | | ES | | | LAB | | + + + + + + | HDL | 30 | 23 - 92 mg/dL | [facility] | | | CHOLESTEROL | | | LAB | | + + + + + + | LDL | 53 (A) | 60 - 130 mg/dL | [facility] | | | CHOLESTEROL | | | LAB | | | , | | | | | | CALCULATED | | | | | + + + + + + | HEPATITIS B | 76 (A) | 0 - 9 mIU/mL | NON [facility] | | | SURF AB, | | | LAB | | | QUANT | | | | | + + + + + + | CALCIUM, | 9.2 | 8.4 - 10.2 | [facility] | | | CORRECTED | | mg/dL | LAB | | + + + + + + | ALKALINE | 58.9 (A)Comment: | 21 - 46 U/L | [facility] | | | PHOS, OTHER | Ca*Phos, corrected | | LAB | | | CALC | | | | | + + + + + + | KT/V | 2.56Comment: KT/V | | [facility] | | | | Prescribed | | LAB | | + + + + + + | URR | 83 | 65 - 100 % | [facility] | | | | | | LAB | | + + + + + + + + | Specimen | + + | Blood - Blood | + + + +---------+ + + | Performing | Address | City/State/Zipcode | Phone Number | | Organization | | | | + +---------+ + + | [facility] | | | | + +---------+ + + PEDS NEPHROLOGY EXTERNAL RESULTS PANEL (09/09/2015 1:00 PM PDT) + + + + + + | Component | Value | Ref Range | Performed | Pathologist | | | | | At | Signature | + + + + + + | CREATININE | 8.04 (A) | 0.60 - 1.20 | [facility] | | | PLASMA | | mg/dL | LAB | | | (LAB) | | | | | + + + + + + | SODIUM, | 139 | 134 - 145 mEq/L | [facility] | | | PLASMA | | | LAB | | | (LAB) | | | | | + + + + + + | POTASSIUM, | 4.2 | 3.5 - 5.1 mEq/L | [facility] | | | PLASMA | | | LAB | | | (LAB) | | | | | + + + + + + | CHLORIDE, | 101 | 98 - 107 mEq/L | [facility] | | | PLASMA | | | LAB | | | (LAB) | | | | | + + + + + + | TOTAL CO2, | 24 | 21 - 31 mEq/L | [facility] | | | PLASMA | | | LAB | | | (LAB) | | | | | + + + + + + | CALCIUM, | 9.2 | 8.6 - 10.2 | [facility] | | | PLASMA | | mg/dL | LAB | | | (LAB) | | | | | + + + + + + | PHOSPHORUS, | 6.8 (A) | 2.5 - 5.0 mg/dL | [facility] | | | PLASMA | | | LAB | | | (LAB) | | | | | + + + + + + | TOTAL | 6.2 (A) | 6.4 - 8.9 g/dL | [facility] | | | PROTEIN, | | | LAB | | | PLASMA | | | | | | (LAB) | | | | | + + + + + + | ALBUMIN, | 3.7 | 3.5 - 5.7 g/dL | [facility] | | | PLASMA | | | LAB | | | (LAB) | | | | | + + + + + + | ALK PHOS | 127 (A) | 34 - 104 U/L | [facility] | | | | | | LAB | | + + + + + + | LDH, SERUM | 200 | 125 - 220 U/L | [facility] | | | | | | LAB | | + + + + + + | AST(SGOT) | 19 | 13 - 39 U/L | [facility] | | | | | | LAB | | + + + + + + | ALT (SGPT) | 23 | 7 - 52 U/L | [facility] | | | | | | LAB | | + + + + + + | PTH, SERUM | 1,029 (A) | 11 - 80 pg/mL | [facility] | | | | | | LAB | | + + + + + + | WHITE CELL | 8.0 | 4.5 - 11.0 /cu | [facility] | | | COUNT | | mm | LAB | | + + + + + + | HEMOGLOBIN | 12.2 | 12.0 - 16.0 | [facility] | | | | | g/dL | LAB | | + + + + + + | HEMATOCRIT | 37.0 | 37 - 47 % | [facility] | | | | | | LAB | | + + + + + + | RDW | 13.5 | 11 - 15 % | [facility] | | | | | | LAB | | + + + + + + | PLATELET | 184 | 150 - 400 /cu | [facility] | | | COUNT | | mm | LAB | | + + + + + + | MCV | 110.6 (A) | 80 - 100 fL | [facility] | | | | | | LAB | | + + + + + + | NEUTROPHIL | 4,232 | 2,000 - 8,800 | [facility] | | | ABSOLUTE - | | cels/uL | LAB | | | [facility] | | | | | + + + + + + | NEUTROPHIL | 52.9 | % | [facility] | | | % | | | LAB | | + + + + + + | LYMPHOCYTE | 35.1 | % | [facility] | | | % | | | LAB | | + + + + + + | MONOCYTE % | 3.9 | % | [facility] | | | | | | LAB | | + + + + + + | EOS % | 7.7 | % | [facility] | | | | | | LAB | | + + + + + + | BASO % | 0.4 | % | [facility] | | | | | | LAB | | + + + + + + | CALCIUM, | 9.4 | 8.4 - 10.2 | [facility] | | | CORRECTED | | mg/dL | LAB | | + + + + + + | ALKALINE | 63.9 (A)Comment: | 21 - 46 U/L | [facility] | | | PHOS, OTHER | Ca*Phos, corrected | | LAB | | | CALC | | | | | + + + + + + | KT/V | 2.58 | | [facility] | | | | | | LAB | | + + + + + + | URR | 84 | 65 - 100 % | [facility] | | | | | | LAB | | + + + + + + + + | Specimen | + + | Blood - Blood | + + + +---------+ + + | Performing | Address | City/State/Zipcode | Phone Number | | Organization | | | | + +---------+ + + | [facility] | | | | + +---------+ + + documented in this encounter Visit Diagnoses Not on filedocumented in this encounter"
--- OUTSIDE RECORDS SUMMARY | 2019-12-25 21:21 | XMS | Encounter Summary ---
Demographics + + + | Address | [address] | | | [place] [address] | + + + | Home Phone [...] Author + + + | Author | [facility] | + + + | Organization | [facility] | + + + | Address | Unknown | + + + | Phone | Unavailable | + + + Support + + + + + | Name | Relationship | Address | Phone | + + + + + | Cory Weldon | ECON | [address] | | | | | [place] [address] | | + + + + + | Thania Mallory | ECON | [address] | | | | | [place] [address] | | + + + + + | Deidra Weldon | ECON | [address] | | | | | [place] | | | | | [address] | | + + + + + Care Team Providers + +------+ + | Care Airfreight Loading Supervisor Name | Role | Phone | + +------+ + | Jonathan Alonso MD | PCP | | + +------+ + Reason for Visit + + + | Reason | Comments | + + + | ESRD - End stage | | | renal disease | | + + + Office Visit - E/M Services (Routine) +--------+--------+ + + + + | Status | Reason | Specialty | Diagnoses / | Referred By | Referred To | | | | | Procedures | Contact | Contact | +--------+--------+ + + + + | Closed | | Pediatric | | Gavin, | [facility] | | | | Nephrology | | Jonathan Gallagher, | [facility] [address] | | | | | | [address] | [address] | | | | | | [place]even | [place] | | | | | | [facility] | Children's | | | | | | [address] | [address] | | | | | | [address] | floor | | | | | | [place], | [place], [place] | | | | | | [place] | [address] | | | | | | [address] | Phone: | | | | | | Phone: | [phone] | | | | | | [phone] | | | | | | | Fax: | | | | | | | [phone] | | +--------+--------+ + + + + Encounter Details +--------+---------+ + + + | Date | Type | Department | Care Team | Description | +--------+---------+ + + + | 11/16/ | Office | Specialty Clinics | Sudhakar Joy | Allergic purpura- | | 2015 | Visit | at [facility] [address] | D, MD [address] [facility] [address] | MEDICARE [address] | | | | [address] | [address] | (Primary Dx); HSP | | | | [place] | [facility] [place] | ([place] | | | | [facility], | [address] | purpura) nephritis; | | | | [facility] | [phone] | Anemia of chronic | | | | [place], [place] | | kidney failure, | | | | [address] | Rtx, [address] | unspecified stage | | | | [phone] | [address] | | | | | | [address] [place], [place] | | | | | | [address] | | +--------+---------+ + + + Social [...] + + + | Blood Pressure | 127/83 | 11/17/2015 10:38 AM | RA adult size 12 | | | | PDT | auto | + + + + + | Pulse | 85 | 11/17/2015 10:38 AM | | | [...] + + + + | Weight | 102.7 kg (226 lb 6.6 | 11/17/2015 10:38 AM | | | | oz) | PDT | | + + + + + | Height | 168 cm (5' 6.14") | 11/17/2015 10:38 AM | | | | | PDT | | + + + + + | Body Mass Index | 36.39 | 11/17/2015 10:38 AM | | | | | PDT | | + + + + + documented in this encounter Patient Instructions Patient Instructions Sudhakar Joy MD - 11/17/2015 11:11 AM PDTPlease stop smoking. You need to get your phos down which should help you avoid the parathyroidectomy. We need to get you on the transplant list soon. Have your friend call Brittney about [phone] Sudhakar Joy MD documented in this encounter Progress Notes Sudhakar Joy MD - 11/17/2015 7:22 PM PDT Pediatric Nephrology Dara was seen on 11/17/2015 for Chief Complaint Patient presents with ESRD - End stage renal disease . The problem list for her is: Patient Active Problem List Diagnosis HSP (Henoch-Schonlein purpura) nephritis Allergic purpura- MEDICARE 2721 Anemia of chronic kidney failure Obesity (BMI 30-39.9) Complication of vascular access for dialysis (HCC) Dara has the following complaints/concerns: She has been on dialysis for three years. Sh robina has not been listed due to Marijuana use. She also has had trouble with elevated PTH and phosphorus. cinacalcet (SENSIPAR) 90 mg oral tablet, Take [...] snack(s). 3 with snacks Physical Examination: BP 127/83[RA adult size 12 auto[ | Pulse 85 | Temp (Src) 36.6 C (97.8 F) (Oral) | Ht 1. 68 m (5' 6.14") | Wt 102.7 kg (226 lb 6.6 oz) | LMP 10/17/2015 | BMI 36.39 kg/(m^2) Gen: No acute distress. No evidence of discomfort. HEENT: Normal exam with no cervical adenopathy, or thyromegaly. Chest: Clear to auscultation bilaterally. Heart: No gallop or murmur with normal S1 and S2. Rate normal. Abd: Soft with no organomegaly, mass, or tenderness. EXt: Normal perfusion, coloration, and warmth to extremities without edema.. Neuro; Normal patellar and ankle reflexes. Lab: Recent Labs 01/20/15 0959 09/09/15 1300 10/05/15 1312 11/09/15 1312 GLU 93 -- -- -- -- BUN 21* -- -- -- 64* CR 5.81* < > 8.04* 9.48* 10.56* ALB 3.5 < > 3.7 3.5 3.6 CA 9.4 < > 9.2 8.8 9.0 PO4 4.5 < > 6.8* 6.4* 8.4* NA 140 < > 139 141 140 K 3.8 < > 4.2 3.7 4.6 CL 102 < > 101 104 102 BICARB 30 < > 24 23 20* MG 2.3 -- -- -- -- < > = values in this interval not displayed. Lab Results Component Value Date WBC 9.0 11/09/2015 HB 12.0 11/09/2015 HCT 37.9 11/09/2015 PLT 172 11/09/2015 MCV 113.7 11/09/2015 RDW 13.9 11/09/2015 Lab Results Component Value Date PTH 1161* 11/09/2015 PTH 1139* 10/05/2015 PTH 1029* 09/09/2015 Assessment and Plan:Dara was seen today for esrd - end stage renal disease. Diagnoses and all orders for this visit: HSP (Henoch-Schonlein purpura) nephritis: original problem ESRD: She is stable, but has secondary hyperparathyroidism and hyperphosphatemia. I advise d her to try to keep her phosphorus controlled and avoid marijuana and get tested to get graeme k on the list. Anemia of chronic kidney failure, unspecified stage: controlled. I spent 31 minutes with this patient including > 50% spent in counseling and coordination o f care. The next appointment is:02/16/16 at 11:15 am Sudhakar Joy MD Pediatric Nephrology and Hypertension Services [address] [facility] [address] [facility] ; Mail code [id number] [place], [place] [id number] documented in this encounter Plan of Treatment +--------+ + + + + | Date | Type | Specialty | Care Team | Description | +--------+ + + + + | [facility] | Adult Acute Care | El Starr MD | | | 2022 | Encounter | | [address] | | | | | | [place], [place] | | | | | | [address] | | | | | | [phone] | | | | | | | | +--------+ + + + + documented as of this encounter Procedures + +--------+ + + + | Procedure Name | Priori | Date/Time | Associated Diagnosis | Comments | | | ty | | | | + +--------+ + + + | LAB REPORTS | | 05/04/2016 | | Results for this | | | | 12:00 AM | | procedure are in the | | | | PST | | results section. | + +--------+ + + + documented in this encounter Results LAB REPORTS (05/04/2016 12:00 AM PST) + + + | Narrative | Performed At | + + + | | | + + + documented in this encounter Visit Diagnoses + + | Diagnosis | + + | Allergic purpura- MEDICARE 2728 - Primary Allergic purpura | + + | HSP (Henoch-Schonlein purpura) nephritis (HCC) Other nephritis and nephropathy, not | | specified as acute or chronic, with specified pathological lesion in kidney | + + | Anemia of chronic kidney failure, unspecified stage | + + documented in this encounter
--- OUTSIDE RECORDS SUMMARY | 2019-12-25 21:21 | XMS | Encounter Summary ---
Demographics + + + | Address | [address] | | | [place] [address] | + + + | Home Phone | | + + + | Preferred Language | Unknown | + + + | Marital Status | Single | + + + | Mandaeism Affiliation | Unknown | + + + | Race | White | + + + | Ethnic Group | Not or | + + + Author + + + | Author | [facility] | + + + | Organization | [facility] | + + + | Address | Unknown | + + + | Phone | Unavailable | + + + Support + + + + + | Name | Relationship | Address | Phone | + + + + + | Cory Weldon | ECON | [address] | | | | | [place] [address] | | + + + + + | Thania Mallory | ECON | [address] | | | | | [place] [address] | | + + + + + | Deidra Weldon | ECON | [address] | | | | | [place] | | | | | [address] | | + + + + + Care Team Providers + +------+ + | Care Protection Analyst Name | Role | Phone | + +------+ + | Jonathan Alonso MD | PCP | | + +------+ + Reason for Visit + +--------+ + | Reason | Onset | Comments | | | Date | | + +--------+ + | Social work | 10/05/ | pt potential donor/checking in with SW | | consultation | 2015 | | + +--------+ + Encounter Details +--------+ + + + + | Date | Type | Department | Care Team | Description | +--------+ + + + + | 10/05/ | Telephone | Clinical | [facility] | Social work | | 2016 | | Transplant Services | [address] | consultation (pt | | | | [address] | [address] | potential | | | | [place], | [place], [place] | donor/checking in | | | | [place] [address] | [address] | with SW) | | | | [phone] | | | +--------+ + + + [...] Miscellaneous Notes Telephone Encounter - [facility]su Brigitte - 10/06/2015 5:00 PM PDTReceived call from pt to day, telling me her neighbor, whose become a friend, is interested to explore whether she ca n be a living donor. Name is Chey Cotto; she is over 21, has three kids and no known he alth problems. Gave pt donor staff contact for info packet, explained basic process of C[facility] desai calling for that first. Dara says things are going well for her at her new apartment. She is settling in and her sister, Michelle, plans to move in soon to live with her. Pt is getting the place all fille d up with belongings/housewares. There were several updates patient was excited to share on her progress in preparing for kidney transplant wait-list activation. 1) She says she chalo t smoking marijuana and last used on September 07, 2015. Pt requesting [facility]al [place] RN begin proc ess to order her three random drug screens to verify her abstinence. SW congratulated her on this step, important for her goal of transplant. 2) Pt says their [employer] fundraising accoun t now has balance of $5,300! They had one big donation from a contact at mom's work. Pt/ric preciado very excited for that as it gives them adequate resources to draw upon for sudden trave l, lengthy stay in [place] area after she is discharged post-tx. Complimented pt on showing maturity and responsibility by contacting SW on these important updates. [place] SW will pass on name of donor pt feels comfortable with getting information. T X SW will make request to [place] RN in regards to getting drug screens set up for patient to [facility] plete. [place] SW will continue to follow pt for SW needs that may arise. Mariza Hsu, HAND COUNTER, [facility] Renal Trans[facility] [address] pg. #[phone] documented in this en counter Plan of Treatment +--------+ + + + + | Date | Type | Specialty | Care Team | Description | +--------+ + + + + | 05/04/ | Hospital | Adult Acute Care | El Starr MD | | | 2022 | Encounter | | [address] | | | | | | [place], [place] | | | | | | [phone] | | | | | | [phone] | | | | | | | | +--------+ + + + + documented as of this encounter Visit Diagnoses Not on filedocumented in this encounter"
--- OUTSIDE RECORDS SUMMARY | 2019-12-25 21:21 | XMS | Encounter Summary ---
Demographics + + + | Address | [address] | | | [place] [address] | + + + | Home Phone | | + + + | Preferred Language | Unknown | + + + | Marital Status | Single | + + + | Faith Affiliation | Unknown | + + + | Race | White | + + + | Ethnic Group | Not or | + + + Author + + + | Author | [facility] | + + + | Organization | [facility] | + + + | Address | Unknown | + + + | Phone | Unavailable | + + + Support + + + + + | Name | Relationship | Address | Phone | + + + + + | Cory Weldon | ECON | [address] | | | | | [place] [address] | | + + + + + | Thania Mallory | ECON | [address] | | | | | [place] [address] | | + + + + + | Deidra Weldon | ECON | [address] | | | | | [place] | | | | | [address] | | + + + + + Care Team Providers + +------+ + | Care Hardwood Flooring Specialist Name | Role | Phone | + +------+ + | Jonathan Alonso MD | PCP | | + +------+ + Reason for Visit + +--------+ + | Reason | Onset | Comments | | | Date | | + +--------+ + | Follow-up encounter | 02/18/ | | | | 2015 | | + +--------+ + Encounter Details +--------+ + + + + | Date | Type | Department | Care Team | Description | +--------+ + + + + | 02/18/ | Telephone | Clinical | Kelsi Martinez | Follow-up encounter | | 2015 | | Transplant Services | RN [address] | | | | | [address] | [facility] | | | | | [place], | [place], [place] | | | | | [place] [address] | [address] | | | | | [phone] | | | +--------+ + + + [...] Telephone Encounter - Kelsi Martinez RN - 02/19/2016 10:25 AM PSTReceived clinic note ole guillen 01/25/2016 from dialysis physician. Per clinic note, pt has been missing treatments up to one a week, with no real reason as to why she hasn't attended the treatment. Her phospho florentin has also been higher recently with concern that this is multifactorial based on her poor diet choices and her skipped treatments. There is also concern about lack of emotional/fam kamron support. Will try to have Mariza give pt a call after the holidays and touch base with her. Contacted pt to discuss these concerns and the reality that pt would not be able to be acti ve on the transplant list given these issues. Pt states that since this last clinic appt anitha robina has made it to every required treatment. She is also working on adjusting her diet and ta emanuel her binders. Pt states that her goal for the new year is to "make her focus her kidney and being transplanted." Told pt that between now and when we drug test her she cannot mis s any further treatments and her phosphorus needs to be under better control. Explained to her that if she were trying to be listed with the adult transplant team they would likely cl ose her referral and have her be re-referred in a year when she was more compliant. I expla ined to her that I am trying to give her every opportunity to be listed and transplanted but she needs to help us. Let her know that our entire team is here to help her and we all wan t her to be successful in achieving this goal. Pt acknowledged understanding of the plan, r epeated it back and agreed to the plan. Contacted dialysis unit, ABRIL Barber, regarding pt's report of no treatments being missed. Elisabeth confirmed that pt has missed therapy since that last clinic note. Pt was 1 hour AMA on 01/27/2016, no show on 01/31/2016 and no show on 02/10/2016. Discussed with Elisabeth the p jen regarding waiting three months to re[eat her drug screen and give her the opportunity to test negative. The plan with the dialysis unit will be to notify them when we are ready to repeat her drug screen and they will send her treatment history and her phosphorus levels. Elisabeth acknowledged understanding of the plan, repeated it [...] Denise | | | | | | [facility] [place] | | | | | | [address] | | | | | | [phone] | | | | | | | | +--------+ + + + + documented as of this encounter Visit Diagnoses Not on filedocumented in this encounter
--- OUTSIDE RECORDS SUMMARY | 2019-12-25 21:22 | XMS | Encounter Summary ---
Demographics + + + | Address | [address] | | | [place] [address] | + + + | Home Phone | | + + + | Preferred Language | Unknown | + + + | Marital Status | Single | + + + | Rastafarian Affiliation | Unknown | + + + | Race | White | + + + | Ethnic Group | Not or | + + + Author + + + | Author | [facility] | + + + | Organization | [facility] | + + + | Address | Unknown | + + + | Phone | Unavailable | + + + Support + + + + + | Name | Relationship | Address | Phone | + + + + + | Cory Weldon | ECON | [address] | | | | | [place] [address] | | + + + + + | Thania Mallory | ECON | [address] | | | | | [place] [address] | | + + + + + | Deidra Weldon | ECON | [address] | | | | | [place] | | | | | [address] | | + + + + + Care Team Providers + +------+ + | Care Shovel Oiler Name | Role | Phone | + +------+ + | Jonathan Alonos MD | PCP | | + +------+ + Reason for Visit + + + | Reason | Comments | + + + | Transplant Form | | | Update | | + + + Encounter Details +--------+ + + + + | Date | Type | Department | Care Team | Description | +--------+ + + + + | 06/22/ | Documentati | Clinical | Kelsi Martinez, | Transplant Form | | 2016 | on | Transplant Services | RN [address] | Update | | | | [address] | [facility] | | | | | [place], | [place], [place] | | | | | [place] [address] | [address] | | | | | [phone] | | | +--------+ + + + [...] | | 2022 | Encounter | | [address] | | | | | | [place], [place] | | | | | | [address] | | | | | | [phone] | | | | | | | | +--------+ + + + + documented as of this encounter Visit Diagnoses Not on filedocumented in this encounter"
--- OUTSIDE RECORDS SUMMARY | 2019-12-25 21:22 | XMS | Encounter Summary ---
Demographics + + + | Address | [address] | | | [place] [address] | + + + | Home Phone | | + + + | Preferred Language | Unknown | + + + | Marital Status | Single | + + + | Sabianist Affiliation | Unknown | + + + | Race | White | + + + | Ethnic Group | Not or | + + + Author + + + | Author | [facility] | + + + | Organization | [facility] | + + + | Address | Unknown | + + + | Phone | Unavailable | + + + Support + + + + + | Name | Relationship | Address | Phone | + + + + + | Cory Weldon | ECON | [address] | | | | | [place] [address] | | + + + + + | Thania Mallory | ECON | [address] | | | | | [place] [address] | | + + + + + | Deidra Weldon | ECON | [address] | | | | | [place] | | | | | [address] | | + + + + + Care Team Providers + +------+ + | Care Benefits Specialist Recruiter Name | Role | Phone | + [...] Nephrology | | Jonathan Gallagher, | [place] [facility] [address] | | | | | | [address] | Param [address] | | | | | | Keven | [place] | | | | | | [facility] | Children's | | | | | | [address] | [address] | | | | | | [address] | floor | | | | | | [place], | [place], [place] | | | | | | [place] | [address] | | | | | | [address] | Phone: | | | | | | Phone: | [phone] | | | | | | [phone] | | | | | | | Fax: | | | | | | | [phone] | | +--------+--------+ + + + + Encounter Details +--------+---------+ + + + | Date | Type | Department | Care Team | Description | +--------+---------+ + + + | 05/11/ | Office | Specialty Clinics | Sudhakar Joy | HSP | | 2016 | Visit | at [facility] [address] | DMD [address] | (David | | | | [address] | [address] | purpura) nephritis | | | | [place] | [place], [place] | (Primary Dx); Anemia | | | | [facility], | [address] | of chronic kidney | | | | 7th floor | [phone] | failure, stage 5 | | | | [place], [place] | | ([facility]) | | | | [address] | | | | | | [phone] | | | +--------+---------+ + + + [...] + + + | Blood Pressure | 126/76 | 05/12/2015 10:44 AM | (RA) adult large | | | | PST | cuff 12, auto | + + + + + | Pulse | 94 | 05/12/2015 10:44 AM | | | | | PST | | + + + + + [...] + + + + | Weight | 105.6 kg (232 lb | 05/12/2015 10:44 AM | | | | 12.9 oz) | PST | | + + + + + | Height | 167.3 cm (5' 5.87") | 05/12/2015 10:44 AM | | | | | PST | | + + + + + | Body Mass Index | 37.73 | 05/12/2015 10:44 AM | | | | | PST | | + + + + + documented in this encounter Patient Instructions Patient Instructions Sudhakar Joy MD - 05/12/2015 11:19 AM PSTKeep working on the Blendin phosphorus and financial plan See me in 4 months. Consider home dialysis. Sudahkar Joy MD documented in this encounter Progress Notes Sudhakar Joy MD - 05/12/2015 8:18 PM PST Pediatric Nephrology Dara was seen on 05/12/2015 for a visit concerning renal transplant option. The problem debi for her is: Patient Active Problem List Diagnosis HSP (Henoch-Schonlein purpura) nephritis Allergic purpura- MEDICARE 2728 Anemia of chronic kidney failure Obesity (BMI 30-39.9) Dara has the following complaints/concerns: She has been on dialysis for a couple of year s. Her phosphorus level has been high - around 8. She has not been very careful about her phosphorus in the diet or taking her binders very well. She does in-center hemodialysis. S he had an infiltrate recently. azithromycin 250 mg oral tablet, Take 250 mg by mouth once daily. EPOETIN JOYCE INJ, by Injection route. FOLIC ACID/VITAMIN B COMP W-C (DIALYVITE ORAL), Take 1 tablet by mouth once daily. iron sucrose 100 mg iron/5 mL intravenous solution, Inject 100 mg into the vein (IV) once. Per dialysis unit sertraline 25 mg oral tablet, Take 25 mg by mouth once daily. sevelamer carbonate (RENVELA) 800 mg Oral tablet, Take 3,200 mg by mouth with each meal and with snack(s). 3 with snacks Physical Examination: BP 126/76[(RA) adult large cuff 12, auto[ | Pulse 94 | Ht 1.673 m (5' 5.87") | Wt 105.6 kg (232 lb 12.9 oz) | BMI 37.73 kg/(m^2) Gen: No acute distress. No evidence of discomfort. She is very overweight. HEENT: Normal exam with no cervical adenopathy, or thyromegaly. Chest: Clear to auscultation bilaterally. Heart: No gallop or murmur with normal S1 and S2. Rate normal. Abd: Soft with no organomegaly, mass, or tenderness. EXt: Normal perfusion, coloration, and warmth to extremities without edema. Her left sided upper arm fistula is a bit bruised, but has a good thrill. Neuro; Normal patellar and ankle reflexes. Lab Results Component Value Date URINEPROTEIN >=500.0 12/20/2012 URINEPH 5.0 12/20/2012 URINEGLUCOSE 50.0 12/20/2012 Lab: Recent Labs 01/20/15 0959 GLU 93 BUN 21* CR 5.81* ALB 3.5 CA 9.4 PO4 4.5 NA 140 K 3.8 CL 102 BICARB 30 MG 2.3 Lab Results Component Value Date WBC 6.27 01/20/2015 HB 13.0 01/20/2015 HCT 39.8 01/20/2015 PLT 194 01/20/2015 MCV 110.6 01/20/2015 RDW 54.3 01/20/2015 Assessment and Plan:Dara was seen today for esrd - end stage renal disease. Diagnoses and all orders for this visit: HSP (Henoch-Schonlein purpura) nephritis: the underlying problem. Anemia of chronic kidney failure, stage 5 (HCC) ESRD: she is not ready yet to get on the list for transplant since she has poor control of phosphorus and does not have the requisite financial amount set aside. I did raise the poss ibility of trying home hemodialysis or nocturnal hemodialysis. I spent 31 minutes with this patient including > 50% spent in counseling and coordination o f care. The next appointment is:08/18/15 at 11:15 am Sudhakar Joy MD Pediatric Nephrology and Hypertension Services [address] Mail code [facility] [place], [place] [address] Estrella Brennan MA - 05/12/2015 10:48 AM PSTPt reports she finished the course of azithromycin today, . documented in th is encounter Plan of Treatment +--------+ + + + + | Date | Type | Specialty | Care Team | Description | +--------+ + + + + | 05/04/ | Hospital | Adult Acute Care | El Starr MD | | | 2022 | Encounter | | [address] | | | | | | [place], [place] | | | | | | [address] | | | | | | [phone] | | | | | | | [...]
--- OUTSIDE RECORDS SUMMARY | 2019-12-25 21:22 | XMS | Encounter Summary ---
Demographics + + + | Address | [address] | | | [place] [address] | + + + | Home Phone [...] Author + + + | Author | [facility] | + + + | Organization | [facility] | + + + | Address | Unknown | + + + | Phone | Unavailable | + + + Support + + + + + | Name | Relationship | Address | Phone | + + + + + | Cory Weldon | ECON | [address] | | | | | [place] [address] | | + + + + + | Thania Mallory | ECON | [address] | | | | | [place] [address] | | + + + + + | Deidra Weldon | ECON | [address] | | | | | [place] | | | | | [address] | | + + + + + Care Team Providers + +------+ + | Care Revenue Agent Name | Role | Phone | + +------+ + | Jonathan Alonso MD | PCP | | + +------+ + Reason for Visit + +--------+ + | Reason | Onset | Comments | | | Date | | + +--------+ + | Social work | 06/09/ | psychosocial update from pt's mom | | consultation | 2015 | | + +--------+ + Encounter Details +--------+ + + + + | Date | Type | Department | Care Team | Description | +--------+ + + + + | 06/09/ | Telephone | Clinical | Mariza Hsu | Social work | | 2016 | | Transplant Services | [address] | consultation | | | | [address] | [address] | (psychosocial update | | | | [address] [place], | [place], [place] | from pt's mom) | | | | [place] [address] | [address] | | | | | [phone] | | | +--------+ + + + [...] Telephone Encounter - Mariza Hsu Brigitte - 06/26/2015 4:49 PM PDTReceived a call from pt' s mom, Jessie, who wanted to give update on pt's situation as related to preparing for kidney transplant. Mom says that pt did not have all the details at time of her last clinic appt a [facility], but there are some relevant updates to her financial savings goal and post-tx support plan. Fundraising: Mom states pt's [employer] account now has a balance of $1190.00 and they have another fund-[employer] event planned in next few months, so mom anticipates meeting their goal of having $2,500 balance likely by September 2015. Around this time, pt has a follow up appt, so family will upda te [place] on progress at that date. These funds could then be used for the post-tx stay (lod ging, meals, gas) for the initial time until reimbursement can be accessed by [employer] for salvador zendejas amount of her expenses for the month stay. Of note, [employer] is also a reimbursement fund to a large degree, so details on speed of accessing funds should be explored by family as well. Support: According to mom, the plan after being released from the [facility] area, is for the patient to go back to her home to recover further rather than to remain living with her friend. Jessie rep orts she can take time off work in order to be pt's primary support person. She has three w eeks paid time off where she would not lose any wages, however she states she can be off wor k for as "long as needed" and gave the example - "like two months" if necessary to support p atient without losing her job. She would not have all that time paid off, but is willing to do this and able and trying herself to save some funds in order to cover her costs if any l ost wages. In terms of secondary support, mom says at this very moment in time there is not anyone par ticular she could definitely say would be able to provide pt secondary support. Other peopl e they have listed in the past mom claims are not options now. Mom will continue to think a nd work on this with pt and get back to SW. Plan: [place] will continue to monitor, provide support and follow up with pt/family at next [facility] cl inic appt or at any time, to get updates on them reaching their fundraising goal for the sta y in the post-discharge period in [place]; and to make finalization on post-hospital support sadia n - then complete acceptable PAF/SPA. Pt's providers will monitor her progress and success in terms of adherence with medications /dialysis/labs as these were also issues noted at time of last clinic visit. Mariza Hsu MSW, [facility] Renal Transplant Metal Rivet Machine Operator pg. #[phone] documented in this en counter Plan of Treatment +--------+ + + + + | Date | Type | Specialty | Care Team | Description | +--------+ + + + + | 05/04/ | Hospital | Adult Acute Care | El Starr MD | | | 2022 | Encounter | | [address] | | | | | | [place] | | | | | | [address] | | | | | | [phone] | | | | | | | | +--------+ + + + + documented as of this encounter Visit Diagnoses Not on filedocumented in this encounter
--- OUTSIDE RECORDS SUMMARY | 2019-12-25 21:22 | XMS | Encounter Summary ---
Demographics + + + | Address | [address] | | | [place] [address] | + + + | Home Phone | | + + + | Preferred Language | Unknown | + + + | Marital Status | Single | + + + | Sikh Affiliation | Unknown | + + + | Race | White | + + + | Ethnic Group | Not or | + + + Author + + + | Author | [facility] | + + + | Organization | [facility] | + + + | Address | Unknown | + + + | Phone | Unavailable | + + + Support + + + + + | Name | Relationship | Address | Phone | + + + + + | Cory Weldon | ECON | [address] | | | | | [place] [address] | | + + + + + | Thania Mallory | ECON | [address] | | | | | [place] [address] | | + + + + + | Deidra Weldon | ECON | [address] | | | | | [place] | | | | | [address] | | + + + + + Care Team Providers + +------+ + | Care Key Bed Installer Name | Role | Phone | + +------+ + | Jonathan Alonso MD | PCP | | + +------+ + Reason for Visit + + + | Reason | Comments | + + + | Social Work Waitlist | ANNALISA [facility] update; check-in on psychosocial goals related to listing | | Update | status | + + + Encounter Details +--------+ + + + + | Date | Type | Department | Care Team | Description | +--------+ + + + + | 05/11/ | Documentati | Clinical | Mariza Hsu | Social Work Waitlist | | 2016 | on | Transplant Services | [address] | Update (ANNALISA GORDON | | | | [address] | [address] | update; check-in on | | | | [address] [place], | [place], [place] | psychosocial goals | | | | [place] [phone] | [phone] | related to listing | | | | [phone] | | status) | +--------+ + + + + Social [...] Notes Telephone Encounter - Mariza Hsu - 05/22/2015 12:08 PM PDTPediatric Transplant Soc ial Work Evaluation - Update Purpose of Interview: Dara Weldon is a 20 year old female who met with SMILEY FANG on May 12, 2015 while at her new [facility] renal [facility] appt at [facility]. Also present in clinic visit today is pt's friend, Kiki who transported her today. Pt has had SMILEY FANG WL updates done on 2014 and o n 02-07-14 plus follow up contacts on her support plan changes 06-04-2014. Patient s origina l pre-listing psychosocial evaluation was done on 12-19-12. Pt is inactive on the list due primarily to gaps in her post-hospital support plan and need for funds to support stay in [facility] after discharge. Current Living Situation: Dara reports she moved out of her mother's home in February 2015 (just weeks after our pr evious meeting when this was reported to be a stable location for her) and is now living wit h her friend, Kiki, present today, who is "like a second mom to me." Kiki lives i n [place], [place] and has a five year old daughter at home. Pt's friend named Yokasta (19) is al so living there. When asked about the living arrangements, pt and Kiki state they "are moving into new place soon which has a shed in the backyard" where pt and Yokasta will live on ce they relocate. Kiki works as a SHEAR GRINDER OPERATOR HELPER full-time and pt provides some child psychometrist for he r daughter. Kiki says she wants to try to become Dara's donor and has called and rec eived the packet of information; next steps were reviewed. Dara has just got a new puppy named "Devaughn" she adores who is a pit-bull/lab mix and is 9 weeks old today. She wants the dog to be approved as a pie bakery laborer dog due to her health c ondition; when asked for what reason she states then he would be able to "come in dialysis a nd to the hospital with me when I go." This SW told pt to ask her dialysis providers about this request and pt asked this to be passed onto Elisabeth Berman, ABRIL Coordinator for kidney transplant as well. Patient's education/employment/activities: Dara is not currently going to college and is not working. 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 Patient says she does not drink alcohol but does occasionally smoke marijuana. She could n ot estimate how frequently. She asked about the review of the risk of marijuana exposure af ter transplant while immunosuppressed and these dangers were reviewed with her. [place] SW told pt she would need to abstain from marijuana use in order to be active on the waiting list pe r policy of CTS at [facility]. Parents' Employment: Patient reports no changes she is aware of in her parents employment since our last convers ation. Pt's mom Thania is employed full-time at a long-term job. Her father [place] is worki ng too. She has some contact, by phone, with him and stepmother Deidra. They live near [place], [place] but she does not see them much. Financial/Insurance Issues: Patient receives SSI, may be able to request an increase if she pays rent, maximum of $733. She remains thoroughly covered as dual-eligible under Medicare (ESRD) and Medicaid (SSI). She has low OOP costs expected for direct medical care and prescriptions; she has some [employer] reimbursement coverage for medical travel/stay. No other resources she identifies. Jaye taylor is relying on others to fully meet her basic needs. Fundraising Plan: Patient has an active BERRY fund-raising campaign with a website launched as she is trying t o collect funds to use for transplant related expenses. Her mom knows more about this activ ity. Family feels they will need to have access to $3,000 - $5,000 in order to cover post-h ospital care stay in the area around [facility] for the month. They are aware partial funds are re imbursed by [facility]: Lodging $40 per night, $12 per day food, mileage .25 cents per mile (curre nt rates) but can often take time to obtain from [employer]. Patient gives a balance of $250.00 in her account. There is another "coat drive" fundraise r planned for the future. Dialysis/compliance update: Dara reports that dialysis in her view is going fine however when asked direct questions she admits she missed a run last week on Monday and misses a couple per month. She also say s her phosphorus is 8.7 and she knows this is high, and reports it has been in this range fo r the past year duration. SW reminded her of goal to get near 5.5 consistently. She says s he has difficulty "remembering" to take her binders. We tried to note behavioral strategies ; she is not sure what will work to improve this. She says she "will try to figure it out" when prompted that this demonstrates how well she may be with taking immunosuppression after transplant. Patient's mental health/adjustment to disease: Others in her life report concern about Dara's struggles with her mood and think she shou ld be in counseling including her mother, her dialysis physician, Dr. Ibarra and her log chain worker, Tri. Patient reports she is taking "pills" to deal with this and that s he does not want to see a counselor. She takes Zolofot and has noted some improvements in h er symptoms since this has now been several months time. She denies any SA/SI at this time. Mood/affect appropriate today. Post Hospital Care Plan: Patient lists her mother Thania as primary support and her father [place] and stepmother Ena chang as back-up, secondary support. This will need to be verified by [place] SW with both parties on how they plan to arrange providing this support. Pt says her friend Wilson, listed at ou r last interview in Jan 2015 is "no longer in the picture" and she does not consider her a s upport source at this time. Pt also thinks her sister Nahed, (21) may visit her but not be primary or secondary support. They will stay in a local hotel, unlikely [email or web address] but this can be evaluated a t the time of transplant if an option exists. Family will use funds raised plus the [facility] tio mbursement. Family aware of the demanding schedule of frequent labs and clinic visits ibis pratt the month following surgery. Patient will now need to complete a new Planning Ahead Form once they get funds saved. Plan: Patient remains at elevated risk for non-adherence due to age and admission of current diff iculty taking binders with pattern of elevated phosphorous. She is also smoking marijuana a nd will need to quit and verify being clean by random UAs. She is high-risk due to limited finances and inconsistent family dynamics which are making her post-tx support inconsistent. She has yet to be in stable living arrangements. She left living with her mom after less th an five months. She is now staying with friends who are reported to be supportive. Family has begun fundraising campaign with goal of minimum of $3,000 prior to transplant. T hey have $250 so far. Depending on when they reach reasonable goal for listing, [place] SW will review details of post-hospital support plan with mother and father. Pt's case will be discussed with peds renal transplant team. Appears she should remain tyesha ctive until the above psychosocial issues addressed. [place] SW will check in w/pt & family on p rogress in 3 months. Mariza Hsu, ARMOR SENIOR SERGEANT, GEOLOGIST Pediatric Renal Transplant Field Worker pg. #[phone] documented in this en counter Plan of [...] [facility] | | | | | | [address] | | | | | | [phone] | | | | | | | | +--------+ + + + + documented as of this encounter Visit Diagnoses Not on filedocumented in this encounter
--- OUTSIDE RECORDS SUMMARY | 2019-12-25 21:22 | XMS | Encounter Summary ---
Demographics + + + | Address | [address] | | | [place] [address] | + + + | Home Phone | | + + + | Preferred Language | Unknown | + + + | Marital Status | Single | + + + | Temple Affiliation | Unknown | + + + | Race | White | + + + | Ethnic Group | Not or | + + + Author + + + | Author | [facility] | + + + | Organization | [facility] | + + + | Address | Unknown | + + + | Phone | Unavailable | + + + Support + + + + + | Name | Relationship | Address | Phone | + + + + + | Cory Weldon | ECON | [address] | | | | | [place] [address] | | + + + + + | Thania Mallory | ECON | [address] | | | | | [place] [address] | | + + + + + | Deidra Weldon | ECON | [address] | | | | | [place] | | | | | [address] | | + + + + + Care Team Providers + +------+ + | Care Sap Fico Architect Name | Role | Phone | + +------+ + | Jonathan Alonso MD | PCP | | + +------+ + Reason for Visit + + + | Reason | Comments | + + + | Follow-up visit | | + + + Office Visit [...] [address] | | | | | | [address] | [facility] | | | | | | [place] | [place] | | | | | | Hospital | [facility] | | | | | | [address] | [address] | | | | | | [address] | floor | | | | | | [place], | [place], [place] | | | | | | [place] | [address] | | | | | | [address] | Phone: | | | | | | Phone: | [phone] | | | | | | [phone] | | | | | | | Fax: | | | | | | | [phone] | | +--------+--------+ + + + + Encounter Details +--------+---------+ + + + | Date | Type | Department | Care Team | Description | +--------+---------+ + + + | 08/17/ | Office | Specialty Clinics | Sudhakar Joy | Anemia of chronic | | 2016 | Visit | at [facility] [address] | [address], [address] | kidney failure, | | | | [address] | [address] | stage 5 (HCC) | | | | [place] | [place], [place] | (Primary Dx); HSP | | | | [facility], | [address] | [facility] | | | [facility] floor | [phone] | purpura) nephritis | | | | [place], [place] | | | | | | [address] | | | | | | [phone] | | | +--------+---------+ + + + [...] + + + | Blood Pressure | 111/76 | 08/18/2015 10:43 AM | RA adult size 12 | | | | PDT | | + + + + + | Pulse | 95 | 08/18/2015 10:43 AM | | | | | PDT [...] + + + + | Weight | 102.6 kg (226 lb 3.1 | 08/18/2015 10:43 AM | | | | oz) | PDT | | + + + + + | Height | 167.9 cm (5' 6.1") | 08/18/2015 10:43 AM | | | | | PDT | | + + + + + | Body Mass Index | 36.4 | 08/18/2015 10:43 AM | | | | | PDT | | + + + + + documented in this encounter Patient Instructions Patient Instructions Sudhakar Joy MD - 08/18/2015 11:14 AM PDTPlease take the phosph ate binders and follow low phos diet. Dont do marijuana - it could prevent transplant. Restart senispar - let your dialysis unit know you are restarting Get a kidney vitamin instead of See me in three months. Sudhakar Joy MD documented in this encounter Progress Notes Sudhakar Joy MD - 08/18/2015 11:07 AM PDT Pediatric Nephrology Dara was seen on 08/18/2015 for Chief Complaint Patient presents with Follow-up visit . The problem list for her is: Patient Active Problem List Diagnosis HSP (Henoch-Schonlein purpura) nephritis Allergic purpura- MEDICARE 2724 Anemia of chronic kidney failure Obesity (BMI 30-39.9) Complication of vascular access for dialysis (HCC) Dara has the following complaints/concerns: She feels good. She has moved into a new [facility]. She has collected enough money to get listed. She is not on sensipar - not sure why . azithromycin 250 mg oral tablet, Take 250 mg by mouth once daily. clopidogrel 75 mg oral tablet, Take 75 mg by mouth once daily. Take one tablet by mouth beck ly DOXERCALCIFEROL (HECTOROL IV), Inject into the vein (IV). EPOETIN JOYCE INJ, by Injection route. FOLIC ACID/VITAMIN B COMP W-C (DIALYVITE ORAL), Take 1 tablet by mouth once daily. (getting a ) iron sucrose 100 mg iron/5 mL intravenous solution, Inject 100 mg into the vein (IV) once. Per dialysis unit sevelamer carbonate (RENVELA) 800 mg Oral tablet, Take 3,200 mg by mouth with each meal and with snack(s). 3 with snacks Sensipar: dialysis chart shows her on 90 mg in evening. Physical Examination: BP 111/76[RA adult size 12[ | Pulse 95 | Ht 1.679 m (5' 6.1") | Wt 102.6 kg (226 lb 3.1 oz) | BMI 36.4 kg/(m^2) Gen: No acute distress. No evidence of discomfort. Overweight: HEENT: Normal exam with no cervical adenopathy, or thyromegaly. Chest: Clear to auscultation bilaterally. Heart: No gallop or murmur with normal S1 and S2. Rate normal. Abd: Soft with no organomegaly, mass, or tenderness. EXt: Normal perfusion, coloration, and warmth to extremities without edema..Left upper arm fistula has thrill - two button holes plus a few other punctures. Trace edema. Neuro; Normal patellar and ankle reflexes. Lab Results Component Value Date URINEPROTEIN >=500.0 12/20/2012 URINEPH 5.0 12/20/2012 URINEGLUCOSE 50.0 12/20/2012 Lab: Recent Labs 01/20/15 0959 07/06/15 1312 08/10/15 1300 GLU 93 -- -- BUN 21* -- -- CR 5.81* 12.84* 9.64* ALB 3.5 3.7 3.5 CA 9.4 8.7 8.9 PO4 4.5 8.7* 8.1* NA 140 141 140 K 3.8 4.5 4.5 CL 102 105 102 BICARB 30 19* 22 MG 2.3 -- -- Lab Results Component Value Date WBC 7.6 07/06/2015 HB 11.8 07/06/2015 HCT 37.1 07/06/2015 PLT 163 07/06/2015 MCV 110.9 07/06/2015 RDW 13.5 07/06/2015 Assessment and Plan:Dara was seen today for follow-up visit. Diagnoses and all orders for this visit: Anemia of chronic kidney failure, stage 5 (HCC): on protocol thru dialysis unit. HSP (Henoch-Schonlein purpura) nephritis: Original problem Renal transplant candidate: She is on hold, but likely can be reactivated soon. Financial situation ok now - need to assess marijuana use. Access Problem; Needs to get transplanted soon. Bone/Mineral: Phos is too high - taking binders - may not be following diet as well as she should. PTH is high. Managed by HD unit. She needs to get back on Sensipar. I spent 31 minutes with this patient including > 50% spent in counseling and coordination o f care. The next appointment is: in six months. Sudhakar Joy MD Pediatric Nephrology and Hypertension Services [address] Mail code [id number], [place] [id number] documented in this encounter Plan of Treatment +--------+ + + + + | Date | Type | Specialty | Care Team | Description | +--------+ + + + + | 05/04/ | Hospital | Adult Acute Care | El Starr MD | | | 2022 | Encounter | | [address] | | | | | | [place], [place] | | | | | | [address] | | | | | | [phone] | | | | | | | | +--------+ + + + + documented as of this encounter Visit Diagnoses + + | Diagnosis | + + | Anemia of chronic kidney failure, stage 5 (HCC) - Primary | + + | HSP (Henoch-Schonlein purpura) nephritis (HCC) Other nephritis and nephropathy, not | | specified as acute or chronic, with specified pathological lesion in kidney | + + documented in this encounter
--- OUTSIDE RECORDS SUMMARY | 2019-12-25 21:22 | XMS | Encounter Summary ---
Demographics + + + | Address | [address] | | | [place] [address] | + + + | Home Phone | | + + + | Preferred Language | Unknown | + + + | Marital Status | Single | + + + | Advent Affiliation | Unknown | + + + [...] | | | | | [place] [address] | | + + + + + | Thania Mallory | ECON | [address] | | | | | [place] [address] | | + + + + + | Deidra Weldon | ECON | [address] | | | | | [place] | | | | | [address] | | + + + + + Care Team Providers + +------+ + | Care Furnace Operator Oil Or [employer] Name | Role | Phone | + +------+ + | Jonathan Alonso MD | PCP | | + +------+ + Encounter Details +--------+ + + + + | Date | Type | Department | Care Team | Description | +--------+ + + + + | 08/17/ | Abstract | Pediatric | Sudhakar Joy | | | 2016 | | Nephrology at | MD Emanuel [address] | | | | | [place] | [facility] | | | | | [facility] | [place], [place] | | | | | [address] | [address] | | | | | [place] | [phone] | | | | | [facility], | | | | | | [address] [place] [address] | | | | | | [place], [place] | | | | | | [address] | | | | | | [phone] | | | +--------+ + + + [...] Denise | | | | | | [place], [place] | | | | | | [address] | | | | | | [phone] | | | | | | | | +--------+ + + + + documented as of this encounter Procedures + +--------+ + + + | Procedure Name | Priori | Date/Time | Associated Diagnosis | Comments | | | ty | | | | + +--------+ + + + | PEDS NEPHROLOGY | Routin | 08/10/2015 | | Results for this | | EXTERNAL RESULTS | e | 1:00 PM | | procedure are in the | | PANEL | | PDT | | results section. | + +--------+ + + + | PEDS NEPHROLOGY | Routin | 07/06/2015 | | Results for this | | EXTERNAL RESULTS | e | 1:12 PM | | procedure are in the | | PANEL | | PDT | | results section. | + +--------+ + + + documented in this encounter Results PEDS NEPHROLOGY EXTERNAL RESULTS PANEL (08/10/2015 1:00 PM PDT) + + + + + + | Component | Value | Ref Range | Performed | Pathologist | | | | | At | Signature | + + + + + + | CREATININE | 9.64 (A) | 0.60 - 1.20 | [facility] | [facility] | | mg/dL | [facility] | | + + + + + + | SODIUM, | 140 | 134 - 145 | [facility] | | [facility] | | mmol/L | [facility] | | + + + + + + | POTASSIUM, | 4.5 | 3.5 - 5.1 | [facility] | | [facility] | | mmol/L | [facility] ([facility] | | + + + + + + | CHLORIDE, | 102 | 98 - 107 mmol/L | [facility] | | [facility] | | | [facility] | | + + + + + + | TOTAL CO2, | 22 | 21 - 31 mmol/L | [facility] | | [facility] | | | [facility] ([facility] | | + + + + + + | CALCIUM, | 8.9 | 8.6 - 10.2 | [facility] | | [facility] | | mg/dL | [facility] ([facility] | | + + + + + + | PHOSPHORUS, | 8.1 (A) | 2.5 - 5.0 mg/dL | [facility] | | [facility] | | | [facility] ([facility] | | + + + + + + | TOTAL | 6.0 (A) | 6.4 - 8.9 g/dL | [facility] | | | PROTEIN, | | | [facility] | | [facility] | [facility] | | | (LAB) | | | | | + + + + + + | ALBUMIN, | 3.5 | 3.5 - 5.7 g/dL | [facility] | | [facility] | | | [facility] | | + + + + + + | ALK PHOS | 119 (A) | 34 - 104 U/L | [facility] | | | | | [facility] | | + + + + + + | LDH, SERUM | 219 | 125 - 220 U/L | [facility] | | + + + + + + | AST(SGOT) | 22 | 13 - 39 U/L | [facility] | | + + + + + + | ALT (SGPT) | 30 | 7 - 52 U/L | [facility] | | + + + + + + | PTH, SERUM | 1,040 (A) | 11 - 80 pg/mL | [facility] | | [facility] | | + + + + + + | CALCIUM, | 9.3 | 8.4 - 10.2 | [facility] | | | CORRECTED | | mg/dL | [facility] | | + + + + + + | ALKALINE | 75.3 (A)Comment: | 21 - 46 Calc | [facility] | | | PHOS, OTHER | Ca*Phos, corrected | | [facility] | | | CALC | | | [facility] | | + + + + + + | URR | 83 | 65 - 100 % | [facility] | | | | | [facility] | | + + + + + + | KT/V | 2.57Comment: KT/V | | [facility] | | | | Prescribled 2.57. Also | | [facility] | | | | spKt/V Total 2.12. | | [facility] | | + + + + + + + + | Specimen | + + | Blood - Blood | + + + + + + + | Performing | Address | City/State/Zipcode | Phone Number | | Organization | | | | + + + + + | [facility] | [address] | [place] [address] | [phone] | | HOSPITAL | | | | + + + + + PEDS NEPHROLOGY EXTERNAL RESULTS PANEL (07/06/2015 1:12 PM PDT) + + + + + + | Component | Value | Ref Range | Performed | Pathologist | | | | | At | Signature | + + + + + + | CREATININE | 12.84 (A) | 0.60 - 1.20 | [facility] | | [facility] | | mg/dL | [facility] | | + + + + + + | SODIUM, | 141 | 134 - 145 mEq/L | [facility] | | [facility] | | | [facility] | | + + + + + + | POTASSIUM, | 4.5 | 3.5 - 5.1 mEq/L | [facility] | | [facility] | | | [facility] | | + + + + + + | CHLORIDE, | 105 | 98 - 107 mEq/L | [facility] | | [facility] | | | [facility] | | + + + + + + | TOTAL CO2, | 19 (A) | 21 - 31 mEq/L | [facility] | | [facility] | | | [facility] | | + + + + + + | CALCIUM, | 8.7 | 8.6 - 10.2 | [facility] | | [facility] | | mg/dL | [facility] ([facility] | | + + + + + + | PHOSPHORUS, | 8.7 (A) | 2.5 - 5.0 mg/dL | [facility] | | [facility] | | | [facility] | | + + + + + + | TOTAL | 6.2 (A) | 6.4 - 8.9 g/dL | [facility] | | | PROTEIN, | | | [facility] | [facility] | | | (LAB) | | | | | + + + + + + | ALBUMIN, | 3.7 | 3.5 - 5.7 g/dL | [facility] | | [facility] | | | [facility] | | + + + + + + | ALK PHOS | 90 | 34 - 104 U/L | [facility] | [facility] | [facility] | | + + + + + + | LDH, SERUM | 254 (A) | 125 - 220 U/L | [facility] | | + + + + + + | AST(SGOT) | 12 (A) | 13 - 39 U/L | [facility] | | [facility] | [facility] | | + + + + + + | ALT (SGPT) | 17 | 7 - 52 U/L | [facility] | | + + + + + + | PTH, SERUM | 824 (A) | 11 - 80 pg/mL | [facility] | [facility] | | + + + + + + | WHITE CELL | 7.6 | 4.5 - 11.0 K/cu | [facility] | | | COUNT | | mm | [facility] | | + + + + + + | HEMOGLOBIN | 11.8 (A) | 12 - 16 g/dL | [facility] | | + + + + + + | HEMATOCRIT | 37.1 | 37 - 47 % | [facility] | | [facility] | | [facility] | | + + + + + + | RDW | 13.5 | 11.0 - 15.0 % | [facility] | | | | [facility] | | + + + + + + | PLATELET | 163 | 150 - 400 K/cu | [facility] | | | COUNT | | mm | [facility] | | + + + + + + | MCV | 110.9 (A) | 80 - 100 fL | [facility] | [facility] | [facility] | | + + + + + + | NEUTROPHIL | 5,822 | 2,000 - 8,800 | [facility] | | | ABSOLUTE - | | LUIS/UL | [facility] | | + + + + + + | NEUTROPHIL | 76.6 | % | [facility] | | | % | | | [facility] | | + + + + + + | LYMPHOCYTE | 16.8 | % | [facility] | | | % | | | [facility] | | + + + + + + | MONOCYTE % | 4.0 | % | [facility] | | | | [facility] | | + + + + + + | EOS % | 2.3 | % | [facility] | [facility] | | + + + + + + | BASO % | 0.3 | % | [facility] | | [facility] | [facility] | | + + + + + + | IRON SERUM | 79 | 50 - 212 ug/dL | [facility] | | + + + + + + | IRON BIND | 174 (A) | 228 - 428 ug/dL | [facility] | | | CAP SERUM | | | [facility] | | + + + + + + | % | 45 | 15 - 50 % | [facility] | | | SATURATION | | | [facility] | | [facility] | [facility] | | | , SERUM | | | | | + + + + + + | FERRITIN | 757 (A) | 10 - 291 ng/mL | [facility] | | | | [facility] | | + + + + + + | CALCIUM, | 8.9 | 8.4 - 10.2 | [facility] | | | CORRECTED | | mg/dL | [facility] | | + + + + + + | ALKALINE | 77.4 (A)Comment: | 21 - 46 calc | [facility] | | | PHOS, OTHER | Ca*Phos, corrected | | [facility] | | | CALC | | | [facility] | | + + + + + + | URR | 85 | 65 - 100 % | [facility] | | | | [facility] | | + + + + + + | KT/V | 2.53Comment: KT/V | | [facility] | | | | Prescribed 2.53. Also | | [facility] | | | | spKt/V 2.14. | | [facility] | | + + + + + + + + | Specimen | + + | Blood - Blood | + + + + + + + | Performing | Address | City/State/Zipcode | Phone Number | | Organization | | | | + + + + + | [facility] | [address] | [place] [address] | [phone] | | HOSPITAL | | | | + + + + + documented in this encounter Visit Diagnoses Not on filedocumented in this encounter"
--- OUTSIDE RECORDS SUMMARY | 2019-12-25 21:23 | XMS | Encounter Summary ---
Demographics + + + | Address | [address] | | | [place] [address] | + + + | Home Phone | | + + + | Preferred Language | Unknown | + + + | Marital Status | Single | + + + | Denominational Affiliation | Unknown | + + + | Race | White | + + + | Ethnic Group | Not or | + + + Author + + + | Author | [facility] | + + + | Organization | [facility] | + + + | Address | Unknown | + + + | Phone | Unavailable | + + + Support + + + + + | Name | Relationship | Address | Phone | + + + + + | Cory Weldon | ECON | [address] | | | | | [place] [address] | | + + + + + | Thania Mallory | ECON | [address] | | | | | [place] [address] | | + + + + + | Deidra Weldon | ECON | [address] | | | | | [place] | | | | | [address] | | + + + + + Care Team Providers + +------+ + | Care Aeronautical Inspector Name | Role | Phone | + +------+ + | Jonathan Alonso MD | PCP | | + +------+ + Reason for Visit + +--------+ + | Reason | Onset | Comments | | | Date | | + +--------+ + | KP Waitlist | 04/28/ | LD questions | | | 2015 | | + +--------+ + Encounter Details +--------+ + + + + | Date | Type | Department | Care Team | Description | +--------+ + + + + | 04/28/ | Telephone | Clinical | Brittney Reyez RN | SHERIDAN Waitlist (LD | | 2015 | | Transplant Services | [address] | questions) | | | | [address] | [facility] | | | | | [facility], | [place], [place] | | | | | [place] [address] | [address] | | | | | [phone] | | | +--------+ + + + [...] this encounter Miscellaneous Notes Telephone Encounter - Brittney Reyez RN - 04/28/2015 11:08 AM Earline called me with ques tions related to the LD process; her 25 yo roommate is interested in donation. Explained the process and gave her the direct # of the LD support person. dounique in this enco unter Plan of Treatment +--------+ + + + + | Date | Type | Specialty | Care Team | Description | +--------+ + + + + | 05/04/ | Hospital | Adult Acute Care | El Starr MD | | | 2022 | Encounter | | [address] | | | | | | [place], [place] | | | | | | [address] | | | | | | [phone] | | | | | | | | +--------+ + + + + documented as of this encounter Visit Diagnoses Not on filedocumented in this encounter"
--- OUTSIDE RECORDS SUMMARY | 2019-12-25 21:24 | XMS | Encounter Summary ---
Demographics + + + | Address | [address] | | | [place] [address] | + + + | Home Phone | | + + + | Preferred Language | Unknown | + + + | Marital Status | Single | + + + | Anabaptist Affiliation | Unknown | + + + | Race | White | + + + | Ethnic Group | Not or | + + + Author + + + | Author | [facility] | + + + | Organization | [facility] | + + + | Address | Unknown | + + + | Phone | Unavailable | + + + Support + + + + + | Name | Relationship | Address | Phone | + + + + + | Cory Weldon | ECON | [address] | | | | | [place] [address] | | + + + + + | Thania Mallory | ECON | [address] | | | | | [place] [address] | | + + + + + | Deidra Weldon | ECON | [address] | | | | | [place] | | | | | [address] | | + + + + + Care Team Providers + +------+ + | Care Matrix Drier Tender Name | Role | Phone | + +------+ + | Jonathan Alonso MD | PCP | | + +------+ + Reason for Visit Diagnostic Testing (Routine) +--------+--------+ + + + + | Status | Reason | Specialty | Diagnoses / | Referred By | Referred To | | | | | Procedures | Contact | Contact | +--------+--------+ + + + + | Closed | | Pediatric | Diagnoses | Txc Trans | Ped | | | | Cardiology | Allergic | Coord Renal | Cardiology | | | | | purpura | [address] | [facility] [address] | | | | | (HCC) [facility] | [place] [address] | | | | | (Amelie | [address] | [place] | | | | | nlein | [place], [place] | Children's | | | | | purpura) | [address] | [facility] [address]th | | | | | nephritis | Phone: | Floor | | | | | ([facility]) | [phone] | [place], [place] | | | | | Hemodialysis | Fax: | [address] | | | | | status | [phone] | Phone: | | | | | (HCC) | | [phone] | | | | | Chronic | | Fax: | | | | | kidney | | [phone] | | | | | disease, | | | | | | | stage V | | | | | | | ([facility]) | | | | | | | Procedures | | | | | | | TRANSTHORACI | | | | | | | C | | | | | | | ECHOCARDIOGR | | | | | | | AM WITHOUT | | | | | | | SEDATION, | | | | | | | PEDS | | | +--------+--------+ + + + + Encounter Details +--------+ + + + + | Date | Type | Department | Care Team | Description | +--------+ + + + + | 01/20/ | Hospital | Pediatric Echo Lab | | | | 2014 | Encounter | at [facility] | | | | | | [place] | | | | | | [address] | | | | | | [place] | | | | | | [place] | | | | | | [address] [facility], | | | | | | [place] [address] | | | | | | [phone] | | | +--------+ + + + [...] + + documented as of this encounter Medications at Time of Discharge + + + +---------+--------+ + | Medication | Sig | Dispensed | Refills | Start | End Date | | | | | | Date | | + + + +---------+--------+ + | EPOETIN JOYCE INJ | by Injection route. | | 0 | | | + + + +---------+--------+ + | FOLIC ACID/VITAMIN | Take 1 tablet by | | 0 | | | | B COMP W-C | mouth once daily. | | | | | | (DIALYVITE ORAL) | | | | | | + + + +---------+--------+ + | sevelamer | Take 3,200 mg by | | 0 | | | | carbonate (RENVELA) | mouth with each meal | | | | | | 800 mg Oral tablet | and with snack(s). | | | | | | | 3 with snacks | | | | | + + + +---------+--------+ + documented as of this encounter Plan of Treatment +--------+ + + + + | Date | Type | Specialty | Care Team | Description | +--------+ + + + + | 05/04/ | Hospital | Adult Acute Care | El Starr MD | | | 2022 | Encounter | | [address] | | | | | | [place], [place] | | | | | | [address] | | | | | | [phone] | | | | | | | | +--------+ + + + + documented as of this encounter Procedures + +--------+ + + + | Procedure Name | Priori | Date/Time | Associated Diagnosis | Comments | | | ty | | | | + +--------+ + + + | TRANSTHORACIC | Routin | 01/20/2015 | Allergic purpura- | Results for this | | ECHOCARDIOGRAM, PEDS | e | 1:18 PM | MEDICARE [facility] [facility] | procedure are in the | | | | PST | (Henoch-Schonlein | results section. | | |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 | | | | | | Hemodialysis status | | | | | | (HCC) Chronic | | | | | | kidney disease, | | | | | | stage V (HCC) | | + +--------+ + + + documented in this encounter Results TRANSTHORACIC ECHOCARDIOGRAM WITHOUT SEDATION, PEDS (01/20/2015 1:18 PM PST) + +-------+ + + + | Component | Value | Ref Range | Performed | Pathologist | | | | | At | Signature | + +-------+ + + + | MV A VMAX | 0.7 | | [facility] | | | | | | OF | | | | | | CARDIOLOGY | | + +-------+ + + + | MV E? | 0.1 | | [facility] | | | | | | OF | | | | | | CARDIOLOGY | | + +-------+ + + + | MV E VMAX | 1.1 | | [facility] | | | | | | OF | | | | | | CARDIOLOGY | | + +-------+ + + + | AOV VMAX | 1.6 | | [facility] | | | (AORTIC | | | OF | | | VALVE) | | | CARDIOLOGY | | + +-------+ + + + | AO ROOT | -1.5 | | [facility] | | | DIAMETER | | | OF | | | VS. BSA | | | CARDIOLOGY | | | (BOSTON Z | | | | | | SCORE) | | | | | + +-------+ + + + | ASCENDING | -1.6 | | [facility] | | | AORTA | | | OF | | | DIAMETER | | | CARDIOLOGY | | | VS. BSA | | | | | | (BOSTON Z | | | | | | SCORE) | | | | | + +-------+ + + + | AO ASC, S | +2.3 | | [facility] | | | 2D (AORTA) | | | OF | | | | | | CARDIOLOGY | | + +-------+ + + + | LV % FS, M | 42 | | [facility] | | | MODE (LEFT | | | OF | | | VENTRICLE) | | | CARDIOLOGY | | + +-------+ + + + + + | Specimen | + + | | + + + + + | Narrative | Performed At | + + + | | | + + + + + | Procedure Note | + + | Interface, Cardiology Results - 01/20/2015 2:35 PM PST Echocardiography Laboratory | | [address] | | [place] [address] | | ; | | [id number] | | | | Transthoracic Echocardiogram Report | | | | | | NAME: DARA WELDON Study Date: 01/20/2015 1:18:29 PM | | Order #: [id number] ACC #: [id number] | | | | | | : 1995 Ht: 166.000 cm BP : 122/75 mmHg | | Age: 19 years Wt: 101.300 kg | | Gender: F BSA: 2.21 m2 | | | | | | Requesting Physician: ADELFO VILLARREAL | | | | | | Reason for Test: End stage renal disease-585.6 | | Location: Outpatient | | Study Information: This was a technically difficult study. Study quality is | | compromised due to obesity. | | | | | | | | Summary: | | 1. End-stage renal disease. | | 2. Trace tricuspid valve regurgitation estimating a right ventricular systolic | | pressure of 17 mmHg plus the right atrial pressure. | | 3. Normal right ventricular size and qualitatively normal systolic function. | | 4. Normal left ventricular size and normal systolic function. | | 5. No pericardial effusion. | | | | Segmental Anatomy, Cardiac Position and Situs: | | The cardiac apex is leftward. {S,D,S}. | | Systemic Veins: | | A superior vena cava was not well visualized. The inferior vena cava is not well | | visualized. | | Pulmonary Veins: | | Unable to identify pulmonary venous drainage to the left atrium. | | Atria: | | | | The atrial septum was not well delineated. The right atrium is normal in size. The | | left atrium is normal in size. | | Tricuspid Valve: | | The tricuspid valve appears normal. There is trace tricuspid valve regurgitation. | | There is no evidence of tricuspid valve stenosis. Trace tricuspid valve regurgitation | | estimating a right ventricular systolic pressure of 17 mmHg plus the right atrial | | pressure. | | Right Ventricle: | | There is normal right ventricular size and qualitatively normal systolic function. | | Mitral Valve: | | The mitral valve appears normal. There is no evidence of mitral valve stenosis. There | | is no mitral valve regurgitation. | | Left Ventricle: | | | | There is normal left ventricular size and normal systolic function. | | Ventricular Septum: | | The ventricular septum was not evaluated. | | Conotruncal Anatomy: | | Normal conotruncal anatomy. | | RVOT: | | There is no right ventricular outflow tract obstruction. | | Pulmonary Valve: | | Transpulmonary flow is laminar, with normal Doppler velocity pattern. There is no | | pulmonary valve stenosis. There is no pulmonary valve regurgitation. | | Pulmonary Arteries: | | | | The branch pulmonary arteries appear normal. | | LVOT: | | There is no left ventricular outflow tract obstruction. | | Aortic Valve: | | The aortic valve is normal. There is no aortic valve stenosis. There is no aortic | | valve regurgitation. | | Aorta: | | The ascending aorta, transverse arch and descending aorta appear unobstructed. There | | is a left aortic arch with normal branching. | | Coronary Arteries: | | The left main coronary artery arises normally from the left coronary sinus. | | Pericardium: | | There is no pericardial effusion. | | Interventional / Surgical Procedures: | | There was no prior surgery on this patient. | | | | Updated Z scores 09/06/2011 | | M-mode: | | IVSd: 0.55 cm Z= -3.14 | | IVSs: 1.25 cm Z= -1.01 | | LVIDd: 5.61 cm Z= 0.41 | | LVIDs: 3.23 cm Z= -0.75 | | LVPWd: 0.48 cm Z= -3.83 | | LVPWs: 1.28 cm Z= | | LV FS: 42.5 % Z= 1.94 | | LV mass (ASE blayne.): 96.90 g | | LV mass index: 30.64 g/cm | | LVPW/LVIDd 0.08 Z= -3.45 | | | | 2-Dimensional: | | AoV annulus, s: 1.92 cm Z= | | Ao Root: 2.59 cm Z= -1.52 | | Ao asc, s: 2.33 cm Z= -1.56 | | RPA, s: 1.24 cm Z= | | TAPSE: 2.75 cm | | | | Systolic Function | | LV SF (M-mode): 42 % Z= 1.94 | | LV EF (M-mode): 73 % | | LV ejection time (AoV): 289 msec | | LV Inra AVV Time (MV): 363 msec | | LV MPI: 0.256 | | | | LV Diastolic Function: | | Lateral annulus e': 11.33 cm/s Z= -2.64 | | E/e' (mitral lateral): 10.11 | | Septal annulus e': 10.564 cm/s Z= -1.52 | | E/e' (mitral septal): 10.85 | | Lateral annulus s: 8.19 cm/s Z= -1.22 | | Septal annulus s: 8.33 cm/s Z= 0.15 | | E/A (mitral inflow): 0.58 | | | | Tricuspid Valve Doppler | | Peak E: 0.90 m/s | | Regurg peak velocity: 2.04 m/s | | Regurg peak gradient: 16.7 mmHg | | | | RVOT Doppler | | Peak velocity: 0.70 m/s | | | | Pulmonary Valve Doppler | | Peak velocity: 1.13 m/s | | Peak gradient: 5.08 mmHg | | | | Mitral Valve Doppler | | Peak E: 1.15 m/s | | Peak A: 0.66 m/s | | | | LVOT Doppler | | Peak velocity: 1.19 m/s | | Peak gradient: 6 mmHg | | | | Aortic Valve Doppler | | Peak velocity: 1.59 m/s | | Peak gradient 10.12 mmHg | | Ejection time: 289 msec | | | | | | | | Aorta Peak Velocity Peak Gradient | | Ao desc peak velocity 1.70 m/s 11.54 mmHg | | | | | | | | NEAL KENNEDY MD | | *Electronically signed on 01/20/2015 at 2:35:17 PM | | Slurry Plant Operator: YARITZA KLINE RDCS | | | | | | cc: | | | | | | Modes utilized | | TTE [id number]; Spectral Doppler [id number]; Color flow Doppler [id number]; | | | | | | | | Final | + + + + + + + | Performing | Address | City/State/Zipcode | Phone Number | | Organization | | | | + + + + + | [facility] | [address] | [place], [place] | | | CARDIOLOGY | [address] | [address] | | + + + + + documented in this encounter Visit Diagnoses + + | Diagnosis | + + | 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
--- OUTSIDE RECORDS SUMMARY | 2019-12-25 21:24 | XMS | Encounter Summary ---
Demographics + + + | Address | [address] | | | [place] [address] | + + + | Home Phone [...] + + | Author | [facility] | + + + | Organization | [facility] | + + + | Address | Unknown | + + + | Phone | Unavailable | + + + Support + + + + + | Name | Relationship | Address | Phone | + + + + + | Cory Weldon | ECON | [address] | | | | | [place] [address] | | + + + + + | Thania Mallory | ECON | [address] | | | | | [place] [address] | | + + + + + | Deidra Weldon | ECON | [address] | | | | | [place] | | | | | [address] | | + + + + + Care Team Providers + +------+ + | Care Assembly Adjuster Name | Role | Phone | + +------+ + | Jonathan Alonso MD | PCP | | + +------+ + Encounter Details +--------+ + + + + | Date | Type | Department | Care Team | Description | +--------+ + + + + | 01/20/ | Hospital | Radiology at [facility] | | | | 2014 | Encounter | [address] | | | | | | [place] | | | | | | [facility], | | | | | | [address] [facility] | | | | | | [place], [place] | | | | | | [address] | | | | | | [phone] | | | +--------+ + + + [...] Denise | | | | | | [place], [place] | | | | | | [address] | | | | | | [phone] | | | | | | | | +--------+ + + + + documented as of this encounter Procedures + +--------+ + + + | Procedure Name | Priori | Date/Time | Associated Diagnosis | Comments | | | ty | | | | + +--------+ + + + | X-RAY CHEST 2 VIEW | Routin | 01/20/2015 | Hemodialysis | Results for this | | | e | 11:54 AM | status (HCC) | procedure are in the | | | | PST | Chronic kidney | results section. | | | | | disease, stage V | | | | | | ([facility]) | | + +--------+ + + + documented in this encounter Results X-RAY CHEST 2 VIEW (01/20/2015 11:54 AM PST) + + + + + + | Component | Value | Ref Range | Performed | Pathologist | | | | | At | Signature | + + + + + + | CHEST, 2 | EXAM: CHEST 2 VIEWS | | | | | VIEWS [place] | 01/20/15 11:54:00 | | | | | STEREO | HISTORY: Chronic renal | | | | | | failure, prerenal | | | | | | transplant workup | | | | | | COMPARISON: None | | | | | | FINDINGS: Cardiac | | | | | | silhouette is normal and | | | | | | there is no adenopathy. | | | | | | The lungsare clear | | | | | | there is no pleural | | | | | | effusion or | | | | | | pneumothorax. Osseous | | | | | | structures donot | | | | | | demonstrate any | | | | | | displaced fractures. | | | | | | IMPRESSION: Clear lungs | | | | | | Attending Radiologists: | | | | | | ALIREZA STEIN, | | | | | | MDAuthor: ALIREZA Palencia | | | | | | MD EMIL I have | | | | | | personally viewed this | | | | | | procedure/exam, reviewed | | | | | | this report, and | | | | | | madechanges to it where | | | | | | appropriate. | | | | | | Final/Electronically | | | | | | signed / ALIREZA Palencia | | | | | | EMIL 01/20/2015 | | | | | | 12:23 PM | | | | + + + + + + + + | Specimen | + + | | + + + +---------+ + + | Performing | Address | City/State/Zipcode | Phone Number | | Organization | | | | + +---------+ + + | [facility] DEPARTMENT OF | | | | | RADIOLOGY | | | | + +---------+ + + documented in this encounter Visit Diagnoses + + | Diagnosis | + + | Hemodialysis status (HCC) Renal dialysis status | + + | Chronic kidney disease, stage V (HCC) Chronic kidney disease, Stage V | + + documented in this encounter"
--- OUTSIDE RECORDS SUMMARY | 2019-12-25 21:24 | XMS | Encounter Summary ---
Demographics + + + | Address | [address] | | | [place] [address] | + + + | Home Phone | | + + + | Preferred Language | Unknown | + + + | Marital Status | Single | + + + | Mormon Affiliation | Unknown | + + + | Race | White | + + + | Ethnic Group | Not or | + + + Author + + + | Author | [facility] | + + + | Organization | [facility] | + + + | Address | Unknown | + + + | Phone | Unavailable | + + + Support + + + + + | Name | Relationship | Address | Phone | + + + + + | Cory Weldon | ECON | [address] | | | | | [place] [address] | | + + + + + | Thania Mallory | ECON | [address] | | | | | [place] [address] | | + + + + + | Deidra Weldon | ECON | [address] | | | | | [place] | | | | | [address] | | + + + + + Care Team Providers + +------+ + | Care Vibrating Screen Operator Name | Role | Phone | + +------+ + | Jonathan Alonso MD | PCP | | + +------+ + Reason for Visit +--------+ + | Reason | Comments | +--------+ + | Other | Update | +--------+ + Encounter Details +--------+ + + + + | Date | Type | Department | Care Team | Description | +--------+ + + + + | 04/23/ | Documentati | Clinical | Kelsi Martinez, | Other (Update) | | 2016 | on | Transplant Services | RN [address] | | | | | [address] | [facility] | | | | | [place], | [place], [place] | | | | | [place] [address] | [address] | | | | | [phone] | | | +--------+ + + + [...] Telephone Encounter - Kelsi Martinez RN - 04/23/2015 9:52 AM PSTReceived message from m other of pt stating that pt is having some dental work done and it will be completed by the end of the month. The family is still working on raising money through [employer] to cover their stay and transportation while they are in [place] and post transplant. Pt may have potenti al donor that is interested in being evaluated. Mother will keep in touch with this office. documented in this en counter Plan of Treatment +--------+ + + + + | Date | Type | Specialty | Care Team | Description | +--------+ + + + + | 05/04/ | Hospital | Adult Acute Care | El Starr MD | | | 2022 | Encounter | | [address] | | | | | | [place], [place] | | | | | | [address] | | | | | | [phone] | | | | | | | | +--------+ + + + + documented as of this encounter Visit Diagnoses Not on filedocumented in this encounter"
--- OUTSIDE RECORDS SUMMARY | 2019-12-25 21:24 | XMS | Encounter Summary ---
Demographics + + + | Address | [address] | | | [place] [address] | + + + | Home Phone | | + + + | Preferred Language | Unknown | + + + | Marital Status | Single | + + + | Muslim Affiliation | Unknown | + + + | Race | White | + + + | Ethnic Group | Not or | + + + Author + + + | Author | [facility] | + + + | Organization | [facility] | + + + | Address | Unknown | + + + | Phone | Unavailable | + + + Support + + + + + | Name | Relationship | Address | Phone | + + + + + | Cory Weldon | ECON | [address] | | | | | [place] [address] | | + + + + + | Thania Mallory | ECON | [address] | | | | | [place] [address] | | + + + + + | Deidra Weldon | ECON | [address] | | | | | [place] | | | | | [address] | | + + + + + Care Team Providers + +------+ + | Care Greenhouse Manager Name | Role | Phone | + [...] | +--------+ + + + + | 01/21/ | Documentati | Clinical | Kelsi Martinez, | Transplant Form | | 2015 | on | Transplant Services | RN [address] | Update | | | | [address] | [facility] | | | | | [place], | [place], [place] | | | | | [place] [address] | [address] | | | | | [phone] | | | +--------+ + + + [...] Denise | | | | | | [place], [place] | | | | | | [address] | | | | | | [phone] | | | | | | | | +--------+ + + + + documented as of this encounter Visit Diagnoses Not on filedocumented in this encounter"
--- OUTSIDE RECORDS SUMMARY | 2019-12-25 21:24 | XMS | Encounter Summary ---
Demographics + + + | Address | [address] | | | [place] [address] | + + + | Home Phone [...] Author + + + | Author | [facility] | + + + | Organization | [facility] | + + + | Address | Unknown | + + + | Phone | Unavailable | + + + Support + + + + + | Name | Relationship | Address | Phone | + + + + + | Cory Weldon | ECON | [address] | | | | | [place] [address] | | + + + + + | Thania Mallory | ECON | [address] | | | | | [place] [address] | | + + + + + | Deidra Weldon | ECON | [address] | | | | | [place] | | | | | [address] | | + + + + + Care Team Providers + +------+ + | Care Car Retarder Operator Name | Role | Phone | + +------+ + | No Pcp Per Patient | PCP | Unavailable | + +------+ + Reason for Visit +--------+--------+ + | Reason | Onset | Comments | | | Date | | +--------+--------+ + | Other | 11/03/ | | | | 2014 | | +--------+--------+ + Encounter Details +--------+ + + + + | Date | Type | Department | Care Team | Description | +--------+ + + + + | 11/03/ | Telephone | Pediatric | Sudhakar Joy | Other | | 2014 | | Nephrology at | MD Emanuel [address] | | | | | [place] | [facility] | | | | | [facility] | [place], [place] | | | | | [address] | [address] | | | | | [place] | [phone] | | | | | [facility], | | | | | | [address] [place] [address] | | | | | | [place], [place] | | | | | | [address] | | | | | | [phone] | | | +--------+ + + + [...] Telephone Encounter - Kelsi Martinez RN - 11/03/2014 1:24 PM PDTReceived phone call maxim jeffery bio mother of pt regarding concern about pt's condition and her lack of progress towards t ransplant. Pt is currently living with bio mother and, per pt, plans on living there for a while. Discussed with pt and her mother that there is a possibility that if mother can help out with funds to stay in [place] for the month following transplant pt may be able to bec ome active on the donor waitlist. Contacted mother of pt who is willing to try and help pt so that she may be re-activated on the list. Mother requested a new planning ahead form so they may complete this. Pt gave verbal okay for biological mother to speak with [facility] transplant/nephrology team. Notified DORON Ko to try and help pt and mother establish a solid plan. P DTdocumented in this encounter Plan of Treatment +--------+ + + + + | Date | Type | Specialty | Care Team | Description | +--------+ + + + + | 05/04/ | Hospital | Adult Acute Care | El Starr MD | | | 3 | Encounter | | [address] | | | | | | [place], [place] | | | | | | [address] | | | | | | [phone] | | | | | | | | +--------+ + + + + documented as of this encounter Visit Diagnoses Not on filedocumented in this encounter"
--- OUTSIDE RECORDS SUMMARY | 2019-12-25 21:24 | XMS | Encounter Summary ---
Demographics + + + | Address | [address] | | | [place] [address] | + + + | Home Phone | | + + + | Preferred Language | Unknown | + + + | Marital Status | Single | + + + | Shinto Affiliation | Unknown | + + + | Race | White | + + + | Ethnic Group | Not or | + + + Author + + + | Author | [facility] | + + + | Organization | [facility] | + + + | Address | Unknown | + + + | Phone | Unavailable | + + + Support + + + + + | Name | Relationship | Address | Phone | + + + + + | Cory Weldon | ECON | [address] | | | | | [place] [address] | | + + + + + | Thania Mallory | ECON | [address] | | | | | [place] [address] | | + + + + + | Deidra Weldon | ECON | [address] | | | | | [place] | | | | | [address] | | + + + + + Care Team Providers + +------+ + | Care Restaurant Operations Manager Name | Role | Phone | + +------+ + | Jonathan Alonso MD | PCP | | + +------+ + Reason for Visit + +--------+ + | Reason | Onset | Comments | | | Date | | + +--------+ + | Echo Imaging Note | 01/20/ | | | | 2014 | | + +--------+ + Diagnostic Testing (Routine) +--------+--------+ + + + [...] | purpura | [address] | [address] | | | | | ([facility]) [facility] | [address] | | | | | ([place]ie | [address] | [place] | | | | | nlein | [facility] [place] | Children's | | | | | purpura) | [address] | [address] | | | | | nephritis | Phone: | Floor | | | | | ([facility]) | [phone] | [place], [place] | | | | | Hemodialysis | Fax: | [address] | | | | | status | [phone] | Phone: | | | | | ([facility]) | | [phone] | | | | | Chronic | | Fax: | | | | | kidney | | [phone] | | | | | disease, | | | | | | | stage V | | | | | | | (HCC) | | | | | | | [...] + + + + | 01/20/ | Results/Int | Pediatric | Daniela Souza, | End-stage renal | | 2014 | erpretation | Cardiology at | MD [address] | disease (HCC) | | | | [place] | [address] | (Primary Dx) | | | | [facility] | [place], [place] | | | | | [address] | [address] | | | | | [place] | [phone] | | | | | [facility] | | | | | | [address] [facility] | | | | | | [place] [address] | | | | | | [phone] | | | +--------+ + + + [...] + + documented as of this encounter Progress Notes Daniela Souza MD - 01/20/2015 2:36 PM PST Please see finalized results of Echocardiogram in Cards tab of chart review. Please see finalized results of Echocardiogram in Cards tab of chart review. documented in this encounter Plan of Treatment +--------+ + + + + | Date | Type | Specialty | Care Team | Description | +--------+ + + + + | 05/04/ | Hospital | Adult Acute Care | El Starr MD | | | 2022 | Encounter | | [address] | | | | | | [place], [place] | | | | | | [address] | | | | | | [phone] | | | | | | | [...] + | Diagnosis | + + | End-stage renal disease (HCC) - Primary End stage renal disease | + + documented in this encounter"
--- OUTSIDE RECORDS SUMMARY | 2019-12-25 21:24 | XMS | Encounter Summary ---
Demographics + + + | Address | [address] | | | [place] [address] | + + + | Home Phone | | + + + | Preferred Language | Unknown | + + + | Marital Status | Single | + + + | Judaism Affiliation | Unknown | + + + | Race | White | + + + | Ethnic Group | Not or | + + + Author + + + | Author | [facility] | + + + | Organization | [facility] | + + + | Address | Unknown | + + + | Phone | Unavailable | + + + Support + + + + + | Name | Relationship | Address | Phone | + + + + + | Cory Weldon | ECON | [address] | | | | | [place] [address] | | + + + + + | Thania Mallory | ECON | [address] | | | | | [place] [address] | | + + + + + | Deidra Weldon | ECON | [address] | | | | | [place] | | | | | [address] | | + + + + + Care Team Providers + +------+ + | Care Beef Grinder Name | Role | Phone | + +------+ + | No Pcp Per Patient | PCP | Unavailable | + +------+ + Encounter Details +--------+ + + + + | Date | Type | Department | Care Team | Description | +--------+ + + + + | 10/17/ | Document-Sc | UNKNOWN DEPARTMENT | Unknown . | | | 2015 | anned | [address] | | | | | | [address] | | | | | | [place], [place] | | | | | | [address] | | | +--------+ + + + [...] [address]ise | | | | | | [place], [place] | | | | | | [address] | | | | | | [phone] | | | | | | | | +--------+ + + + + documented as of this encounter Visit Diagnoses Not on filedocumented in this encounter"
--- OUTSIDE RECORDS SUMMARY | 2019-12-25 21:24 | XMS | Encounter Summary ---
Demographics + + + | Address | [address] | | | [place] [address] | + + + | Home Phone [...] Author + + + | Author | [facility] | + + + | Organization | [facility] | + + + | Address | Unknown | + + + | Phone | Unavailable | + + + Support + + + + + | Name | Relationship | Address | Phone | + + + + + | Cory Louise | ECON | [address] | | | | | [place] [address] | | + + + + + | Thania Mallory | ECON | [address] | | | | | [place] [address] | | + + + + + | Deidra Louise | ECON | [address] | | | | | [place] | | | | | [address] | | + + + + + Care Team Providers + +------+ + | Care Cartridge Assembling Machine Adjuster Name | Role | Phone | + +------+ + | No Pcp Per Patient | PCP | Unavailable | + +------+ + Reason for Referral Diagnostic Testing (Routine) +--------+--------+ + + + [...] | | | purpura | [address] | [address] | | | | | (HCC) [facility] | [place] | [place] | | | | | (Amelie | [address] | [address] | | | | | nlein | [place], [place] | [facility] | | | | | purpura) | [address] | [address] | | | | | nephritis | Phone: | Floor | | | | | (HCC) | [phone] | [place], [place] | | | | | Hemodialysis | Fax: | [address] | | | | | status | [phone] | Phone: | | | | | (HCC) | | [phone] | | | | | Chronic | | Fax: | | | | | kidney | | [phone] | | | | | disease, | | | | | | | stage V | | | | | | | ([facility]) | | | | | | | [...] | | +--------+--------+ + + + + Reason for Visit + +--------+ + | Reason | Onset | Comments | | | Date | | + +--------+ + | Transplant | 01/07/ | | | Appointment | 2014 | | + +--------+ + Encounter Details +--------+ + + + + | Date | Type | Department | Care Team | Description | +--------+ + + + + | 01/07/ | Telephone | Clinical | Kelsi Martinez | Transplant | | 2014 | | Transplant Services | RN [address] | Appointment | | | | [address] | [facility] | | | | | [address] [place], | [place], [place] | | | | | [place] [address] | [address] | | | | | [phone] | | | +--------+ + + + [...] Telephone Encounter - Kelsi Martinez RN - 01/07/2015 10:48 AM PSTContacted mother of pt after receiving pt Planning Ahead form. Pt appears to have stable support system with bio jose d other now but still does not have funds to remain in [place] for one month and transportati on post transplant. Sent message to secondary social studies teacher to discuss with the family options for [employer] financial assistance including contacting [employer]. Mother appreciative of this since she is willing to do fundraising. Pt has not been seen by Peds Transplant for quite a while and her transplant testing appear s to be out of date. Scheduled pt to be seen in clinic and will update testing at that time . documented in this e ncounter Plan of Treatment +--------+ + + + + | Date | Type | Specialty | Care Team | Description | +--------+ + + + + | 05/04/ | Hospital | Adult Acute Care | El Starr MD | | | 2022 | Encounter | | [address] | | | | | | [place], [place] | | | | | | [address] | | | | | | [phone] | | | | | | | | +--------+ + + + + + +------+--------+ + + | Name | Type | Priori | Associated Diagnoses | Order Schedule | | | | ty | | | + +------+--------+ + + | 12 LEAD ECG | ECG | Routin | Allergic purpura- | Ordered: 01/07/2015 | | | | e | MEDICARE 2728 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 | | | | | | Hemodialysis status | | | | | | ([facility]) Chronic | | | | | | kidney disease, | | | | | | stage V ([facility]) | | + +------+--------+ + + documented as of this encounter [...] the | | | | PST | (Henblake-Schernestolein | results section. | | | | [...] 2:35 PM PST Echocardiography Laboratory | | [address] | | [place] [address] | | ; | | [id number] | | | | Transthoracic Echocardiogram Report | | | | | | NAME: DARA LOUISE Study Date: 01/20/2015 1:18:29 PM | | Order #: [id number] ACC #: [id number] | | | | | | : [...] on 01/20/2015 at 2:35:17 PM | | Offal Icer Poultry: [address] | | | | | | cc: | | | | | | Modes utilized | | TTE 45725; Spectral Doppler 03116; Color flow Doppler 97961; | | | | | | | | Final | + + + + + + + | Performing | Address | City/State/Zipcode | Phone Number | | Organization | | | | + + + + + | [facility] | [address] | [place], [place] | | | CARDIOLOGY | [address] | [address] | | + + + + + X-RAY CHEST 2 VIEW (01/20/2015 11:54 AM [...] | | + +---------+ + + | [facility] | | | | | RADIOLOGY | | | | + +---------+ + + HIV-1,2 AB/HIV-1 P24 AG SCRN, SERUM (01/20/2015 9:59 AM PST) + + + + + + | Component | Value | Ref Range | Performed | Pathologist | | | | | At | Signature | + + + + + + | HIV-1,2 | Nonreactive | Nonreactive | [facility] | | | AB/HIV-1 | | | LABORATORY | | | P24 AG | | | SERVICES, | | | SCREEN | | | SPECIAL IMM | | | | | | + COAG | | + + + + + + + + | Specimen | + + | Blood - Blood | | (substance) | + + + + + | Narrative | Performed At | + + + | HIV-1 p24 Ag and HIV-1,2 Ab not detected. | [facility] | | | LABORATORY | | | SERVICES, | | | SPECIAL IMM + | | | COAG | + + + + + + + + | Performing | Address | City/State/Zipcode | Phone Number | | Organization | | | | + + + + + | [facility] | [address] | [place] [address] | | | SERVICES, SPECIAL | [address] | | | | IMM + COAG | | | | + + + + + HEPATITIS C QUANTITATIVE, PLASMA (01/20/2015 9:59 AM PST) + + + + + + | Component | Value | Ref Range | Performed | Pathologist | | | | | At | Signature | + + + + + + | HEP C PCR, | Undetected | Undetected, | [facility] | | | QUANT | | Undetected - | DIAGNOSTIC | | | | | See Below IU/mL | | | | | | | LABORATORIE | | | | | | S | | + + + + + + + + | Specimen | + + | Blood - Blood | | (substance) | + + + + + | Narrative | Performed At | + + + | Reportable Range: 12-100,000,000 IU/mL These results are most | [facility] | | likely suggestive of either the absence of HCV viremia or the | DIAGNOSTIC | | presence of low-level HCV viremia at or below the assays lower | LABORATORIES | | sensitivity limit of 12 IU/mL. | | + + + + + + + + | Performing | Address | City/State/Zipcode | Phone Number | | Organization | | | | + + + + + | [facility] | [address] | [place] [address] | | | DIAGNOSTIC | [address] | | | | LABORATORIES | | | | + + + + + HEPATITIS B SURFACE AB QUAL, SERUM (01/20/2015 9:59 AM PST) + + + + + + | Component | Value | Ref Range | Performed | Pathologist | | | | | At | Signature | + + + + + + | HEP B | Reactive (A) | Non Reactive | [facility] - | | | SURFACE AB | | | [facility] - | | | QUAL, SERUM | | | [place] | | + + + + + + + + | Specimen | + + | Blood - Blood | + + + + + + + | Performing | Address | City/State/Zipcode | Phone Number | | Organization | | | | + + + + + | [facility] | [address] | [place] [address] | | | [facility] | | | | + + + + + HEPATITIS B SURFACE AG, SERUM (01/20/2015 9:59 AM PST) + + + + + + | Component | Value | Ref Range | Performed | Pathologist | | | | | At | Signature | + + + + + + | HEPATITIS B | NegativeComment: | Negative | [facility] - | | | SURFACE | Negative | | [facility] - | | | AG, SERUM | | | [place] | | + + + + + + + + | Specimen | + + | Blood - Blood | + + + + + + + | Performing | Address | City/State/Zipcode | Phone Number | | Organization | | | | + + + + + | [facility] | [address] | [place] [address] | | | [place] | | | | + + + + + HEPATITIS B CORE AB, SERUM (01/20/2015 9:59 AM PST) + + + + + + | Component | Value | Ref Range | Performed | Pathologist | | | | | At | Signature | + + + + + + | HEPATITIS B | NegativeComment: | Negative | [facility] - | | | CORE AB, | Negative | | [facility] - | | | SERUM | | | [place] | | + + + + + + + + | Specimen | + + | Blood - Blood | + + + + + + + | Performing | Address | City/State/Zipcode | Phone Number | | Organization | | | | + + + + + | [facility] | [address] | [place] [address] | | | [place] | | | | + + + + + HEPATITIS A AB SCREEN, SERUM (01/20/2015 9:59 AM PST) + + + + + + | Component | Value | Ref Range | Performed | Pathologist | | | | | At | Signature | + + + + + + | HEPATITIS A | Positive (A)Comment: | Negative | [facility] - | | | AB TOTAL | Antibody Pos | | [facility] - | | | | | | [place] | | + + + + + + + + | Specimen | + + | Blood - Blood | + + + + + + + | Performing | Address | City/State/Zipcode | Phone Number | | Organization | | | | + + + + + | [facility] | [address] | [place] [address] | | | [facility] | | | | + + + + + RPR SERUM (01/20/2015 9:59 AM PST) + + + + + + | Component | Value | Ref Range | Performed | Pathologist | | | | | At | Signature | + + + + + + | RPR SRM | Non ReactiveComment: | Non Reactive | [facility] | | | QUAL | Rapid Plasma Reagin | | REG UNIV | | | | screening test is | | PTH - INTFC | | | | Non-Reactive. No further | | | | | | reflex testing is | | | | | | required.Performed by | | | | | | [facility],[address] | | | | | | [address], [facility],[place] | | | | | | [address] | | | | | | [phone].Lytro. | | | | | | Faisal mantilla, | | | | | | , Lab. Director | | | | + + + + + + + + | Specimen | + + | Blood - Blood | + + + + + + + | Performing | Address | City/State/Zipcode | Phone Number | | Organization | | | | + + + + + | [facility] | [address] | [place], [place] | | | UNIV PTH - INTFC | | [address] | | + + + + + VARICELLA ZOSTER IGG, SERUM (01/20/2015 9:59 AM PST) + + + + + + | Component | Value | Ref Range | Performed | Pathologist | | | | | At | Signature | + + + + + + | VARICELLA | Positive | | [facility] - | | | ZOSTER IGG | | | [facility] - | | | | | | [place] | | + + + + + + + + | Specimen | + + | Blood - Blood | + + + + + + + | Performing | Address | City/State/Zipcode | Phone Number | | Organization | | | | + + + + + | [facility] | [address] | [place] [address] | | | [place] | | | | + + + + + CMV IGG AND IGM ABS, SERUM (01/20/2015 9:59 AM PST) + + + + + + | Component | Value | Ref Range | Performed | Pathologist | | | | | At | Signature | + + + + + + | CMV IGG AB | 0.22Comment: | U/mL | [facility] | | | | INTERPRETIVE | | REG UNIV | | | | INFORMATION: | | PTH - INTFC | | | | Cytomegalovirus | | | | | | Antibody, IgG 0.59 | | | | | | U/mL or less......... | | | | | | Not Detected 0.6 - | | | | | | 0.69 U/mL........... | | | | | | Indeterminate-Repeat | | | | | | testing in | | | | | | | | | | | | 10-14 days may be | | | | | | helpful. 0.70 U/mL or | | | | | | greater...... Detected | | | | | | In immunocompromised | | | | | | patients, CMV serology | | | | | | (IgG or IgM antibody | | | | | | titers) may not be | | | | | | reliable and may be | | | | | | misleading in the | | | | | | diagnosis of acute or | | | | | | reactivation CMV | | | | | | disease. The preferred | | | | | | method for diagnosis is | | | | | | culture of virus and/or | | | | | | demonstration of viral | | | | | | antigen in peripheral | | | | | | white cells (buffy | | | | | | coat), bronchoalveolar | | | | | | lavage (BAL) cells, or | | | | | | tissue biopsies. The | | | | | | best evidence for | | | | | | current infection is a | | | | | | significant change on | | | | | | two appropriately timed | | | | | | specimens, where both | | | | | | tests are done in the | | | | | | same laboratory at the | | | | | | same time. | | | | + + + + + + | CMV IGM AB | <8.0Comment: | <=29.9 AU/mL | [facility] | | | | INTERPRETIVE | | REG UNIV | | | | INFORMATION: | | PTH - INTFC | | | | Cytomegalovirus | | | | | | Antibody, IgM 29.9 | | | | | | AU/mL or Less ....... | | | | | | Not Detected 30.0-34.9 | | | | | | AU/mL........... | | | | | | Indeterminate-Repeat | | | | | | testing | | | | | | | | | | | | in 10-14 days may be | | | | | | helpful. 35.0 AU/mL or | | | | | | Greater .... | | | | | | Detected-IgM antibody to | | | | | | CMV | | | | | | | | | | | | detected which may | | | | | | indicate a | | | | | | | | | | | | current or recent | | | | | | infection. | | | | | | | | | | | | However, low | | | | | | levels of IgM | | | | | | | | | | | | antibodies may | | | | | | occasionally | | | | | | | | | | | | persist for more | | | | | | than 12 | | | | | | | | | | | | months | | | | | | post-infection. CMV | | | | | | serology is not useful | | | | | | for the evaluation of | | | | | | active or reactivated | | | | | | infection in | | | | | | immunocompromised | | | | | | patients. Molecular | | | | | | diagnostic tests (i.e. | | | | | | PCR)are preferred in | | | | | | these cases.Performed by | | | | | | [facility],[address] | | | | | [place] | | | | | | [address] | | | | | | [phone]. | | | | | | Faisal mantilla, | | | | | | MD, Lab. Director | | | | + + + + + + + + | Specimen | + + | Blood - Blood | + + + + + + + | Performing | Address | City/State/Zipcode | Phone Number | | Organization | | | | + + + + + | [facility] | [address] | [place], [place] | | | UNIV PTH - INTFC | | [address] | | + + + + + URIC ACID, PLASMA (01/20/2015 9:59 AM PST) + +-------+ + + + | Component | Value | Ref Range | Performed | Pathologist | | | | | At | Signature | + +-------+ + + + | URIC ACID, | 3.9 | 2.5 - 6.2 mg/dL | [facility] | | | PLASMA | | | LABORATORY | | | (LAB) | | | SERVICES, | | | | | | CORE | | + +-------+ + + + + + | Specimen | + + | Blood - Blood | | (substance) | + + + + + + + | Performing | Address | City/State/Zipcode | Phone Number | | Organization | | | | + + + + + | [facility] | [address] | [place] [address] | | | SERVICES, CORE | [address] | | | + + + + + BILIRUBIN DIRECT (01/20/2015 9:59 AM PST) + +---------+ + + + | Component | Value | Ref Range | Performed | Pathologist | | | | | At | Signature | + +---------+ + + + | BILIRUBIN | <0.1 | 0.0 - 0.3 mg/dL | [facility] | | | DIRECT | | | LABORATORY | | | | | | SERVICES, | | | | | | CORE | | + +---------+ + + + | BILI D CMNT | No Hemo | | [facility] | | | | | | LABORATORY | | | | | | SERVICES, | | | | | | CORE | | + +---------+ + + + + + | Specimen | + + | Blood - Blood | | (substance) | + + + + + + + | Performing | Address | City/State/Zipcode | Phone Number | | Organization | | | | + + + + + | [facility] | [address] | [place] [address] | | | SERVICES, CORE | [address] | | | + + + + + LDH TOTAL, PLASMA (01/20/2015 9:59 AM PST) + +---------+ + + + | Component | Value | Ref Range | Performed | Pathologist | | | | | At | Signature | + +---------+ + + + | LD TOTAL, | 163 | <=250 U/L | [facility] | | | PLASMA | | | LABORATORY | | | | | | SERVICES, | | | | | | CORE | | + +---------+ + + + | LD CMNT | No Hemo | | [facility] | | | | | | LABORATORY | | | | | | SERVICES, | | | | | | CORE | | + +---------+ + + + + + | Specimen | + + | Blood - Blood | | (substance) | + + + + + + + | Performing | Address | City/State/Zipcode | Phone Number | | Organization | | | | + + + + + | [facility] | [address] | [place] [address] | | | SERVICES, CORE | [address] | | | + + + + + MAGNESIUM, PLASMA (01/20/2015 9:59 AM PST) + +-------+ + + + | Component | Value | Ref Range | Performed | Pathologist | | | | | At | Signature | + +-------+ + + + | MAGNESIUM,P | 2.3 | 1.8 - 2.5 mg/dL | [facility] | | | LASMA | | | LABORATORY | | | | | | RIKY, | | | | | | CORE | | + +-------+ + + + + + | Specimen | + + | Blood - Blood | | (substance) | + + + + + + + | Performing | Address | City/State/Zipcode | Phone Number | | Organization | | | | + + + + + | [facility] | [address] | [place] [address] | | | SERVICES, CORE | [address] | | | + + + + + PHOSPHORUS, PLASMA (01/20/2015 9:59 AM PST) + +-------+ + + + | Component | Value | Ref Range | Performed | Pathologist | | | | | At | Signature | + +-------+ + + + | PHOSPHORUS, | 4.5 | 2.4 - 4.7 mg/dL | [facility] | | | PLASMA | | | LABORATORY | | | (LAB) | | | SERVICES, | | | | | | CORE | | + +-------+ + + + + + | Specimen | + + | Blood - Blood | | (substance) | + + + + + + + | Performing | Address | City/State/Zipcode | Phone Number | | Organization | | | | + + + + + | [facility] | [address] | [place] [address] | | | SERVICES, CORE | [address] | | | + + + + + COMPLETE METABOLIC SET (NA,K,CL,CO2,BUN,CREAT,GLUC,CA,AST,ALT,BILI TOTAL,ALK PHOS,ALB,PROT TOTAL) (01/20/2015 9:59 AM PST) + + + + + + | Component | Value | Ref Range | Performed | Pathologist | | | | | At | Signature | + + + + + + | GLUCOSE, | 93 | 60 - 99 mg/dL | [facility] | | | PLASMA | | | LABORATORY | | | (LAB) | | | SERVICES, | | | | | | CORE | | + + + + + + | BUN, PLASMA | 21 (H) | 6 - 20 mg/dL | [facility] | | | (LAB) | | | LABORATORY | | | | | | SERVICES, | | | | | | CORE | | + + + + + + | CREATININE | 5.81 (H) | 0.60 - 1.10 | [facility] | | | PLASMA | | mg/dL | LABORATORY | | | (LAB) | | | SERVICES, | | | | | | CORE | | + + + + + + | EGFR | 11 (L) | >60 mL/min | [facility] | | | - | | | LABORATORY | | | TUNISIAN | | | SERVICES, | | | | | | CORE | | + + + + + + | EGFR NON | 9 (L) | >60 mL/min | [facility] | | | -CHARISMA | | | LABORATORY | | | RICAN | | | SERVICES, | | | | | | CORE | | + + + + + + | SODIUM, | 140 | 136 - 145 | [facility] | | | PLASMA | | mmol/L | LABORATORY | | | (LAB) | | | SERVICES, | | | | | | CORE | | + + + + + + | POTASSIUM, | 3.8 | 3.4 - 5.0 | [facility] | | | PLASMA | | mmol/L | LABORATORY | | | (LAB) | | | SERVICES, | | | | | | CORE | | + + + + + + | CHLORIDE, | 102 | 97 - 108 mmol/L | [facility] | | | PLASMA | | | LABORATORY | | | (LAB) | | | SERVICES, | | | | | | CORE | | + + + + + + | TOTAL CO2, | 30 | 21 - 32 mmol/L | [facility] | | | PLASMA | | | LABORATORY | | | (LAB) | | | SERVICES, | | | | | | CORE | | + + + + + + | CALCIUM, | 9.4 | 8.6 - 10.2 | [facility] | | | PLASMA | | mg/dL | LABORATORY | | | (LAB) | | | SERVICES, | | | | | | CORE | | + + + + + + | BILIRUBIN | 0.4 | 0.3 - 1.2 mg/dL | [facility] | | | TOTAL | | | LABORATORY | | | | | | SERVICES, | | | | | | CORE | | + + + + + + | TOTAL | 7.4 | 6.4 - 8.2 g/dL | [facility] | | | PROTEIN, | | | LABORATORY | | | PLASMA | | | SERVICES, | | | (LAB) | | | CORE | | + + + + + + | ALBUMIN, | 3.5 | 3.5 - 4.7 g/dL | [facility] | | | PLASMA | | | LABORATORY | | | (LAB) | | | SERVICES, | | | | | | CORE | | + + + + + + | ALK PHOS | 123 (H) | 42 - 110 U/L | [facility] | | | | | | LABORATORY | | | | | | SERVICES, | | | | | | CORE | | + + + + + + | AST(SGOT) | 18 | <=41 U/L | [facility] | | | | | | LABORATORY | | | | | | SERVICES, | | | | | | CORE | | + + + + + + | ALT (SGPT) | 35 | <=60 U/L | [facility] | | | | | | LABORATORY | | | | | | SERVICES, | | | | | | CORE | | + + + + + + | ANION | 9 | 4 - 11 mmol/L | [facility] | | | GAP(ALB | | | LABORATORY | | | CORRECTED) | | | SERVICES, | | | | | | CORE | | + + + + + + | POTASSIUM | No Hemo | | [facility] | | | CMNT | | | LABORATORY | | | | | | SERVICES, | | | | | | CORE | | + + + + + + | BILI T CMNT | No Hemo | | [facility] | | | | | | LABORATORY | | | | | | SERVICES, | | | | | | CORE | | + + + + + + | AST CMNT | No Hemo | | [facility] | | | | | | LABORATORY | | | | | | SERVICES, | | | | | | CORE | | + + + + + + | ANION GAP | 8 | mmol/L | [facility] | | | | | | LABORATORY | | | | | | SERVICES, | | | | | | CORE | | + + + + + + + + | Specimen | + + | Blood - Blood | | (substance) | + + + + + | Narrative | Performed At | + + + | GFR is estimated using the MDRD equation recommended by the | [facility] | | National Kidney Disease Education Program. Estimated GFR | LABORATORY | | Interpretive Information: <60 mL/min/1.73 sq m | SERVICES, CORE | | Chronic Kidney Disease <15 mL/min/1.73 sq m | | | Kidney Failure Estimated GFR greater that 60 mL/min/1.73 sq m is of | | | limited clinical value. The MDRD equation is not valid in the | | | following situations: - Patients under 18 years of age - Severe | | | malnutrition or obesity - Vegetarian diet - Rapidly changing kidney | | | function | | + + + + + + + + | Performing | Address | City/State/Zipcode | Phone Number | | Organization | | | | + + + + + | 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
--- OUTSIDE RECORDS SUMMARY | 2019-12-25 21:24 | XMS | Encounter Summary ---
Demographics + + + | Address | [address] | | | [place] [address] | + + + | Home Phone | | + + + | Preferred Language | Unknown | + + + | Marital Status | Single | + + + | Spiritism Affiliation | Unknown | + + + | Race | White | + + + | Ethnic Group | Not or | + + + Author + + + | Author | [facility] | + + + | Organization | [facility] | + + + | Address | Unknown | + + + | Phone | Unavailable | + + + Support + + + + + | Name | Relationship | Address | Phone | + + + + + | Cory Weldon | ECON | [address] | | | | | [place] [address] | | + + + + + | Thania Mallory | ECON | [address] | | | | | [place] [address] | | + + + + + | Deidra Weldon | ECON | [address] | | | | | [place] | | | | | [address] | | + + + + + Care Team Providers + +------+ + | Care Gravure Press Operator Name | Role | Phone | + +------+ + | Jonathan Alonso MD | PCP | | + +------+ + Encounter Details +--------+------+ + + + | Date | Type | Department | Care Team | Description | +--------+------+ + + + | 01/20/ | Lab | Lab Center at | | 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 | | [facility] | | MEDICARE 2728; HSP | | | | [facility] | | ([facility] | | | | [address] | | conchita) nephritis; | | | | [facility] | | Hemodialysis status | | | | [facility] | | ([facility]); Chronic | | | | [address] Floor [place], | | kidney disease, | | | | [place] [address] | | stage V ([facility]) | | | | [phone] | | | +--------+------+ + + + Social History + +-------+ [...] Denise | | | | | | [place], [place] | | | | | | [address] | | | | | | [phone] | | | | | | | | +--------+ + + + + documented as of this encounter Procedures + +--------+ + + + | Procedure Name | Priori | Date/Time | Associated Diagnosis | Comments | | | ty | | | | + +--------+ + + + | CBC AND AUTO DIFF | Routin | 01/20/2015 | Allergic purpura- | Results for this | | | e | 9:59 AM | MEDICARE 2728 HSP | procedure are [...] | + +--------+ + + + | HEPATITIS C | Routin | 01/20/2015 | Allergic purpura- | Results for this | | QUANTITATIVE, PLASMA | e | 9:59 AM | MEDICARE 2728 HSP | procedure are [...] | + +--------+ + + + | CMV IGG AND IGM ABS, | Routin | 01/20/2015 | Allergic purpura- | Results for this | | SERUM | e | 9:59 AM | MEDICARE 2728 HSP | procedure are [...] | + +--------+ + + + | CBC, WITH | Routin | 01/20/2015 | Allergic purpura- | Results for this | | DIFFERENTIAL | e | 9:59 AM | MEDICARE 2728 HSP | procedure are in the | | | | PST | ([facility] | results [facility]. | | |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 | | | | | | Hemodialysis status | | | | | | ([facility]) Chronic | | | | | | kidney disease, | | | | | | stage V ([facility]) | | + +--------+ + + + | VARICELLA ZOSTER | Routin | 01/20/2015 | Allergic purpura- | Results for this | | IGG, SERUM | e | 9:59 AM | MEDICARE 2728 [facility] | procedure are in the | | | | PST | ([facility] | results section. | | |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 | | | | | | Hemodialysis status | | | | | | (HCC) Chronic | | | | | | kidney disease, | | | | | | stage V ([facility]) | | + +--------+ + + + | COMPLETE METABOLIC | Routin | 01/20/2015 | Allergic purpura- | Results for this | | SET | e | 9:59 AM | MEDICARE 2728 HSP | procedure are in the | | (NA,K,CL,CO2,BUN,CRE | | PST | ([facility] | results section. | | AT,GLUC,CA,AST,ALT,B |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 | | | SHUN TOTAL,ALK | | | Hemodialysis status | | | PHOS,ALB,PROT TOTAL) | | | (HCC) Chronic | | | | | | kidney disease, | | | | | | stage V (HCC) | | + +--------+ + + + | HIV AB/AG SCREENING | Routin | 01/20/2015 | Allergic purpura- | Results for this | | W/REFLEX TO CONFIRM | e | 9:59 AM | MEDICARE 2728 HSP | procedure are [...] | + +--------+ + + + | RPR SERUM | Routin | 01/20/2015 | Allergic purpura- | Results for this | | | e | 9:59 AM | MEDICARE 2728 HSP | procedure are [...] | + +--------+ + + + | PHOSPHORUS, PLASMA | Routin | 01/20/2015 | Allergic purpura- | Results for this | | | e | 9:59 AM | MEDICARE 2728 HSP | procedure are in the | | | | PST | ([facility] | results section. | | |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 | | | | | | Hemodialysis status | | | | | | (HCC) Chronic | | | | | | kidney disease, | | | | | | stage V (HCC) | | + +--------+ + + + | HEPATITIS A AB IGM, | Routin | 01/20/2015 | Allergic purpura- | Results for this | | SERUM | e | 9:59 AM | MEDICARE 2728 HSP | procedure are [...] | + +--------+ + + + | HEPATITIS B SURFACE | Routin | 01/20/2015 | Allergic purpura- | Results for this | | AB QUAL, SERUM | e | 9:59 AM | MEDICARE 2728 HSP | procedure are [...] | + +--------+ + + + | HEPATITIS B SURFACE | Routin | 01/20/2015 | Allergic purpura- | Results for this | | AG, SERUM | e | 9:59 AM | MEDICARE 2728 HSP | procedure are [...] | + +--------+ + + + | HEPATITIS B CORE AB, | Routin | 01/20/2015 | Allergic purpura- | Results for this | | SERUM | e | 9:59 AM | MEDICARE 2728 HSP | procedure are [...] | + +--------+ + + + | HEPATITIS A AB | Routin | 01/20/2015 | Allergic purpura- | Results for this | | SCREEN, SERUM | e | 9:59 AM | MEDICARE 2728 [facility] | procedure are in the | | | | PST | ([facility] | results section. | | |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 | | | | | | Hemodialysis status | | | | | | (HCC) Chronic | | | | | | kidney disease, | | | | | | stage V (HCC) | | + +--------+ + + + | BILIRUBIN DIRECT | Routin | 01/20/2015 | Allergic purpura- | Results for this | | | e | 9:59 AM | MEDICARE 2728 HSP | procedure are [...] | + +--------+ + + + | URIC ACID, PLASMA | Routin | 01/20/2015 | Allergic purpura- | Results for this | | | e | 9:59 AM | MEDICARE 2728 HSP | procedure are in the | | | | PST | ([facility] | results section. | | |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 | | | | | | Hemodialysis status | | | | | | ([facility]) Chronic | | | | | | kidney disease, | | | | | | stage V ([facility]) | | + +--------+ + + + | MAGNESIUM, PLASMA | Routin | 01/20/2015 | Allergic purpura- | Results for this | | | e | 9:59 AM | MEDICARE 2728 HSP | procedure are in the | | | | PST | ([facility] | results section. | | |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 | | | | | | Hemodialysis status | | | | | | (HCC) Chronic | | | | | | kidney disease, | | | | | | stage V ([facility]) | | + +--------+ + + + | LDH TOTAL, PLASMA | Routin | 01/20/2015 | Allergic purpura- | Results for this | | | e | 9:59 AM | MEDICARE 2728 HSP | procedure are [...] + + documented in this encounter Results HEPATITIS A AB IGM, SERUM (01/20/2015 9:59 AM PST) + + + + + + | Component | Value | Ref Range | Performed | Pathologist | | | | | At | Signature | + + + + + + | HEPATITIS A | NegativeComment: | Negative | [facility] | | | AB, IGM | Negative | | [facility] - | [...] + | [facility] | [address] | [place] [address] | | | [place] | | | | + + + + + CBC AND AUTO DIFF (01/20/2015 9:59 AM PST) + + + + + + | Component | Value | Ref Range | Performed | Pathologist | | | | | At | Signature | + + + + + + | WHITE CELL | 6.27 | 4.40 - 11.00 | [facility] | | | COUNT | | K/cu mm | LABORATORY | | | | | | SERVICES, | | | | | | CORE | | + + + + + + | RED CELL | 3.60 (L) | 4.00 - 5.20 | [facility] | | | COUNT | | M/cu mm | LABORATORY | | | | | | SERVICES, | | | | | | CORE | | + + + + + + | HEMOGLOBIN | 13.0 | 12.0 - 16.0 | [facility] | | | | | g/dL | LABORATORY | | | | | | SERVICES, | | | | | | CORE | | + + + + + + | HEMATOCRIT | 39.8 | 36.0 - 46.0 % | [facility] | | | | | | LABORATORY | | | | | | SERVICES, | | | | | | CORE | | + + + + + + | MCV | 110.6 (H) | 80.0 - 96.0 fL | [facility] | | | | | | LABORATORY | | | | | | SERVICES, | | | | | | CORE | | + + + + + + | MCHC | 32.7 | 33.0 - 35.5 | [facility] | | | | | g/dL | LABORATORY | | | | | | SERVICES, | | | | | | CORE | | + + + + + + | RDW SD | 54.3 (H) | 35.1 - 46.3 fL | [facility] | | | | | | LABORATORY | | | | | | SERVICES, | | | | | | CORE | | + + + + + + | PLATELET | 194 | 150 - 400 K/cu | [facility] | | | COUNT | | mm | LABORATORY | | | | | | SERVICES, | | | | | | CORE | | + + + + + + | MPV | 11.1 | 9.7 - 12.3 fL | [facility] | | | | | | LABORATORY | | | | | | SERVICES, | | | | | | CORE | | + + + + + + | NRBC% | 0.0 | 0.0 - 0.3 % | [facility] | | | | | | LABORATORY | | | | | | SERVICES, | | | | | | CORE | | + + + + + + | NRBC# | 0.00 | 0.00 - 0.02 | [facility] | | | | | K/cu mm | LABORATORY | | | | | | SERVICES, | | | | | | CORE | | + + + + + + | NEUTROPHIL | 58.4 | 50.0 - 70.0 % | [facility] | | | % | | | LABORATORY | | | | | | SERVICES, | | | | | | CORE | | + + + + + + | LYMPHOCYTE | 29.7 | 18.0 - 42.0 % | [facility] | | | % | | | LABORATORY | | | | | | SERVICES, | | | | | | CORE | | + + + + + + | MONOCYTE % | 6.2 | 3.5 - 9.0 % | [facility] | | | | | | LABORATORY | | | | | | SERVICES, | | | | | | CORE | | + + + + + + | EOS % | 4.6 (H) | 1.0 - 3.0 % | [facility] | | | | | | LABORATORY | | | | | | SERVICES, | | | | | | CORE | | + + + + + + | BASO % | 0.8 | 0.0 - 2.0 % | [facility] | | | | | | LABORATORY | | | | | | SERVICES, | | | | | | CORE | | + + + + + + | IG% | 0.3Comment: Immature | 0.0 - 0.6 % | [facility] | | | | Granulocytes (IG) | | LABORATORY | | | | include metamyelocytes, | | SERVICES, | | | | myelocytes and | | CORE | | | | promyelocytes. Bands | | | | | | are not included in the | | | | | | IG count. Bands are | | | | | | included in the | | | | | | neutrophil count. | | | | + + + + + + | NEUTROPHIL | 3.66 | 1.80 - 7.70 | [facility] | | | # | | K/cu mm | LABORATORY | | | | | | SERVICES, | | | | | | CORE | | + + + + + + | LYMPHOCYTE | 1.86 | 1.00 - 4.80 | [facility] | | | # | | K/cu mm | LABORATORY | | | | | | SERVICES, | | | | | | CORE | | + + + + + + | MONOCYTE # | 0.39 | 0.10 - 0.90 | [facility] | | | | | K/cu mm | LABORATORY | | | | | | SERVICES, | | | | | | CORE | | + + + + + + | EOS # | 0.29 | 0.00 - 0.50 | [facility] | | | | | K/cu mm | LABORATORY | | | | | | SERVICES, | | | | | | CORE | | + + + + + + | BASO # | 0.05 | 0.00 - 0.10 | [facility] | | | | | K/cu mm | LABORATORY | | | | | | SERVICES, | | | | | | CORE | | + + + + + + | IG# | 0.02 | 0.00 - 0.03 | [facility] | | | | | K/cu mm | LABORATORY | | | | | | SERVICES, | | | | | | CORE | | + + + + + + + + | Specimen | + + | Blood | + + + + + | Narrative | Performed At | + + + | Immature Granulocytes (IG) include metamyelocytes, myelocytes | [facility] | | and promyelocytes. Bands are not included in the IG count. Bands are | LABORATORY | | included in the neutrophil count. | SERVICES, CORE | + + + + + + + + | Performing | Address | City/State/Zipcode | Phone Number | | Organization | | | | + + + + + | [facility] | [address] | [place] [address] | | | SERVICES, CORE | [address] | | | + + + + + HIV-1,2 AB/HIV-1 P24 AG SCRN, [...] | + + + + + | [facility] | [address] | [place] [address] | | | SERVICES, SPECIAL | [address] | | | | IMM + [...] 12-100,000,000 IU/mL These results are most | [facility] | | likely suggestive of either the [...] + + + | [facility] | [address] | [place] [address] | | | DIAGNOSTIC | [address] [...] | | QUAL, SERUM | | | [place] | | + + + + + + + + | Specimen | + + | Blood - Blood | + + + + + + + | Performing | Address | City/State/Zipcode | Phone Number | | Organization | | | | + + + + + | [facility] | [address] | [place] [address] | | | [place] | | | [...] + | [facility] - | [address] | [place] [address] | | | [place] | | | [...] + | [facility] - | [address] | [place] [address] | | | [place] | | | | + + + [...] + | [facility] - | [address] | [place] [address] | | | [place] | | | [...] by | | | | | | [employer] | | | | | | [address], [place], [place] | | | | | | [address] | | | | | | [phone].[employer]lab. | | | | | | Faisal mantilla, | | | | | | Jenny ALMEIDA. Director | | | | + + + + + + + + | Specimen | + + | Blood - Blood | + + + + + + + | Performing | Address | City/State/Zipcode | Phone Number | | Organization | | | | + + + + + | [facility] | [address] | [place], [place] | | | [facility] | | [address] | | + + + + + [...] + | [facility] | [address] | [place] [address] | | | [place] | | | [...] by | | | | | | [employer],[address] | | | | | | [address], [facility] [place] | | | | | | [address] | | | | | | [phone].[employer]lab. | | | | | | annalee, Faisal Caraballo, | | | | | | Jenny ALMEIDA. Director | | | | + + + + + + + + | Specimen | + + | Blood - Blood | + + + + + + + | Performing | Address | City/State/Zipcode | Phone Number | | Organization | | | | + + + + + | [facility] | [address] | [place], [place] | | | [facility] | | [address] | | + + + + + [...] + | [facility] | [address] | [place] [address] | | | SERVICES, CORE | [address] [...] | + +---------+ + + + | KRYSTALI D CMNT | No Hemo | | [...] + | [facility] | [address] | [place] [address] | | | SERVICES, CORE | [address] [...] | + + + + + | [facility] | [address] | [place] [address] | | | SERVICES, CORE | [address] | | | + + + + + MAGNESIUM, PLASMA (01/20/2015 9:59 AM PST) + +-------+ + + + | Component | Value | Ref Range | Performed | Pathologist | | | | | At | Signature | + +-------+ + + + | MAGNESIUM,P | 2.3 | 1.8 - 2.5 mg/dL | [facility] | | | [facility] | | | LABORATORY | | | [...] | + + + + + | [facility] | [address] | [place] [address] | | | SERVICES, CORE | LONG [...] + | [facility] | [address] | [place] [address] | | | SERVICES, CORE | [address] [...] | | | LABORATORY | | | GREEK | | | SERVICES, | | | [...] the MDRD equation recommended by the | [facility] | | National Kidney Disease Education Program. Estimated GFR | LABORATORY | | Interpretive Information: <60 mL/min/1.73 sq m | RIKY, CORE | | Chronic Kidney Disease <15 [...] | + + + + + | [facility] | [address] | [place] [address] | | | SERVICES, CORE | [address] | | | + + + + + documented in this encounter Visit Diagnoses + + | Diagnosis | + + | Allergic purpura- MEDICARE 2728 Allergic purpura | + + | HSP [...]
--- OUTSIDE RECORDS SUMMARY | 2019-12-25 21:24 | XMS | Encounter Summary ---
Demographics + + + | Address | [address] | | | [place] [address] | + + + | Home Phone | | + + + | Preferred Language | Unknown | + + + | Marital Status | Single | + + + | Latter-Day Affiliation | Unknown | + + + [...] | | | | | [place] [address] | | + + + + + | Thania Mallory | ECON | [address] | | | | | [place] [address] | | + + + + + | Deidra Weldon | ECON | [address] | | | | | [place] | | | | | [address] | | + + + + + Care Team Providers + +------+ + | Care Video Game Producer Name | Role | Phone | + +------+ + | Jonathan Alonso MD | PCP | | + +------+ + Reason for Visit + + + | Reason | Comments | + + + | ESRD - End stage | transplant planning visit | | renal disease | | + [...] | | | MD [address] | [facility] | | | | | | Keven | [facility] | | | | | | Hospital | Children's | | | | | | [address] | [address] | | | | | | [address] | floor | | | | | | [place], | [place], [place] | | | | | | [place] | [address] | | | | | | [address] | Phone: | | | | | | Phone: | [phone] | | | | | | [phone] | | | | | | | Fax: | | | | | | | [phone] | | +--------+--------+ + + + + Encounter Details +--------+---------+ + + + | Date | Type | Department | Care Team | Description | +--------+---------+ + + + | 01/20/ | Office | Specialty Clinics | Sudhakar Joy | [facility] | | 2015 | Visit | at [facility] [address] | MD Emanuel [address] | (David | | | | [address] | [address] | purpura) nephritis | | | | [facility] | [place], [place] | (Primary Dx); | | | | [facility], | [address] | Allergic purpura- | | | | [facility] | [phone] | MEDICARE 3478; | | | | [place], [place] | | Anemia of chronic | | | | [address] | | kidney failure, | | | | [phone] | | stage 5 (HCC); | | | | | | Obesity (BMI | | | | | | 30-39.9) | +--------+---------+ + + + Social History [...] + + + | Blood Pressure | 122/75 | 01/20/2015 10:10 AM | | | | | PST | | + + + + + | Pulse | 72 | 01/20/2015 10:10 AM | | | | | PST | | + + + + + | Temperature | 36.6 C (97.8 F) | 01/20/2015 10:10 AM | | | | | PST [...] + + + + | Weight | 101.3 kg (223 lb 5.2 | 01/20/2015 10:10 AM | | | | oz) | PST | | + + + + + | Height | 166.3 cm (5' 5.47") | 01/20/2015 10:10 AM | | | | | PST | | + + + + + | Body Mass Index | 36.63 | 01/20/2015 10:10 AM | | | | | PST | | + + + + + documented in this encounter Patient Instructions Patient Instructions Sudhakar Joy MD - 01/20/2015 10:52 AM PSTBP 122/75 | Pulse 72 | Temp (Src) 36.6 C (97.8 F) (Oral) | Ht 1.663 m (5' 5.47") | Wt 101.3 kg (223 lb 5.2 oz) | BMI 36.63 kg/(m^2) Blood pressure is great. We should be able to get back on the list soon. See me in 4 months. Sudhakar Joy MD documented in this encounter Progress Notes Sudhakar Joy MD - 01/20/2015 11:12 AM PST Pediatric Nephrology Dara was seen on 01/20/2015 for a visit to get back on the transplant list. 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 She came off the transplant list after sh e moved out of her dad's house. She is now with mom and seems to be doing well there. She has graduated from high school. She is not working now. 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 Dara has the following complaints/concerns: None now. cinacalcet 90 mg oral tablet, Take 90 mg by mouth once daily. Administer with food. EPOETIN JOYCE INJ, by Injection route.: with dialysis. Venofer: with dialysis FOLIC ACID/VITAMIN B COMP W-C (DIALYVITE ORAL), Take 1 tablet by mouth once daily. sertraline 50 mg oral tablet, Take 50 mg by mouth once daily. (started last week) sevelamer carbonate (RENVELA) 800 mg Oral tablet, Take 3,200 mg by mouth with each meal and with snack(s). 3 with snacks Physical Examination: BP 122/75 | Pulse 72 | Temp (Src) 36.6 C (97.8 F) (Oral) | Ht 1.663 m (5' 5.47") | Wt 1 01.3 kg (223 lb 5.2 oz) | BMI 36.63 kg/(m^2) Gen: No acute distress. 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 Obesity (BMI 30-39.9): Chronic problem Dara seems like she has matured. She should be able to get back on her the transplant li st. She has a cxr, echo and lab work today to get back on the list. Mariza Hsu is me eting with family to establish a plan financially for transplant. I spent 34 minutes with this patient including > 50% spent in counseling and coordination o f care. The next appointment is in four months. 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
--- OUTSIDE RECORDS SUMMARY | 2019-12-25 21:24 | XMS | Encounter Summary ---
Demographics + + + | Address | [address] | | | [place] [address] | + + + | Home Phone | | + + + | Preferred Language | Unknown | + + + | Marital Status | Single | + + + | Episcopal Affiliation | Unknown | + + + [...] | | | | | [place] [address] | | + + + + + | Thania Mallory | ECON | [address] | | | | | [place] [address] | | + + + + + | Deidra Weldon | ECON | [address] | | | | | [place] | | | | | [address] | | + + + + + Care Team Providers + +------+ + | Care Electrical Controls Technician Name | Role | Phone | + +------+ + | Jonathan Alonso MD | PCP | | + +------+ + Reason for Visit + + + | Reason | Comments | + + + | Social Work Waitlist | [place] SW check-in on pt's support plan & social changes | | Update | | + + + Encounter Details +--------+ + + + + | Date | Type | Department | Care Team | Description | +--------+ + + + + | 01/20/ | Documentati | Clinical | Mariza Hsu | Social Work Waitlist | | 2014 | on | Transplant Services | L [address] | Update ([place] SW | | | | [address] | [address] | check-in on pt's | | | | [place], | [place], [place] | support plan & | | | | [place] [address] | [address] | social changes) | | | | [phone] | | | +--------+ + + + [...] Notes Telephone Encounter - Mariza Hsu - 01/26/2015 11:32 AM PSTPediatric Transplant Soc ial Work Evaluation - Update Purpose of Interview: Dara Weldon is a 19 year old female who met with SMILEY FANG on 2014 while at her oss health renal clinic appt at [facility]. Her mother Thania was present during interview. [facility], ph #[phone] was consulted with the same week of t his interview as well. Pt has had [place] ANNALISA WL updates done on 02-07-14 and follow up contacts o n her support plan changes 06-04-2014. Patient s original pre-listing psychosocial evaluati on was done on 12-19-12. Pt is inactive on the list due primarily to support issues. Current Living Situation: Dara has had many different living arrangement attempts this past year, since graduating high school. She tried to live with friends, on their own, but financially found this too d ifficult. She has moved in with her mother, Thania, who lives in the [place] town of [place], [place] with her boyfriend. Patient has lived with her mother for the past four months. The two report they do "argue a lot" which has been their relationship pattern, but that overall it is going "fine". In the home are the patient, her mother and mother's long-term partner. Kodi estrada have one dog. At this time they live quite a distance from the dialysis unit she attend s. Patient says she is on a waiting list for low-income housing and hopes this comes through a t some point. She is aware this can take an extended time. Dara would move out on her ow n or with a friend if she were to get this type of housing she could afford on her SSI. She lby is striving for her independence from having to rely on others. She does not yet have h er ODL but states she has a car "ready" for her to use once she does. Jessie interjects the f inancial implications (insurance, maintenance, gas) would make this not an immediate option. Perhaps typical of her young adult phase, patient does not seem realistic in all her views of life. Patient's education/employment/activities: Dara graduated from high school and was commended on this great accomplishment! She is n ot currently going to college and is not working. Pt clamis that her typical day, around di al, is "hanging out" with neighborhood kids. Mom adds in their small community the yvrose coleyn are all in close proximity. Dara admits that in her social time some of her peers ar e drinking beer, but she does not join into this or other harmful habits by self-report. Darrian quarles is committed to staying away from abuse of drugs or alcohol and she knows the impact this can have on her health. Parents' Employment: Pt's mom Thania is employed full-time at a long-term job. Her father Clayton is working per pt's report has Thur, Fri & Sat off. She has some contact with him and stepmother Deidra serna is also working . He is living near [place], [place]. Financial/Insurance Issues: Patient receives $415 per month in SSI due to not having rent expense living with her mom. Dara is paying bills she has and contributing some, also says she is planning to save a s mall amount of her monthly income towards her transplant. She plans to buy a new phone for her upcoming birthday in Feb. Family reports to be meeting basic needs due to patient livin g with her mom, but there is not much extra money after paying bills. Fundraising Plan: Per mom they plan to contact [employer] and set up a fund-raising campaign for pt to use for colin splant related expenses. In particular they feel the need to accrue an amount to use for th e required post-hospital care stay in the area around [place] for the month. [place] SW reviewed th at pt will have access to limited funds for travel/stay including: Lodging $40 per night, $ 12 per day food, mileage .25 cents per mile (current rates) however these funds are reimburs ed by the Medicaid travel brokerage and often can take a month or more after the expense is paid to obtain. Mom states they plan to raise a balance in [employer] of $3-5K prior to patient los mayen transplanted. [place] SW will mail pt/family information and materials on lodging, fundraising, travel benefit access/program. Dialysis/compliance update: Dara reports that dialysis, while not ideal, is going fair. She has missed a total of th ree days, once due to being rescheduled by the unit which she could not make, but none latel y and does not cut her runs short. She thinks her labs have been overall stable, she is abl e to take binders. Patient's mental health/adjustment to disease: Dara has had on-going struggles with her mood and in consulting with her dialysis physici an, Dr. Ibarra and her breast worker, Tri, they both believe she would greatly b enefit from counseling for formal support about the stressors in her life including family r elationships, as her emotions they have noted can impact her medical care. Dialysis SW set up counseling at the local mental health department for Dara, however she did not attend. Tri is willing to readdress this with her but would appreciate the support of the trans plant team as well for motivation pt seems to lack. Her doctor recently prescribed an anti- depressant, Zoloft, to try to address her mood. Pt has only taken this one week duration so far and does not notice any difference. She denies any thoughts of self harm at this time. Post Hospital Care Plan: Pt's mother Thania says she can be one of the primary support people for Dara once she i s transplanted. Jessie has three weeks of paid time off, then she would like to "share" the r est of the time needed with a combination of either pt's father, Clayton and or their very clos e friend named Wilson, ph # [phone]; who is like a "second mother" as her daughter grew up close friends with Dara. Thania admits they have not spoken to Wilson yet about this need but will soon and expect her to be able to assist in part of the need. [place] SW will nee d to confirm this plan with both dad and Wilson as back-ups. Pt also thinks her sister Evelyn michel, (21) who lives in [place] could hlep her out again not as primary but in part. [place] SW re viewed some of the primary support person needs and will send the family a SPA to complete. They will stay in a local hotel, unlikely [employer] but this can be evaluated a t the time of transplant if an option exists. Family will use funds raised and the access t o OHP reimbursement. Family aware of the demanding schedule of frequent labs and clinic vis its during the month following surgery and states will be able to comply. Pt/mom will need to complete a new Planning Ahead Form once they get the savings funds accrued to support the stay. Plan: Patient remains at elevated risk for non-adherence due to age, problems with mood, limited finances and inconsistent family dynamics. However she has been living with her mom for the past four months and seems to be receiving suitably stable support there. Pt/mom plan to do fundraising and desire to gather a minimum of $3,000 prior to her having a transplant evelia gibson Depending on when that happens, family verbalizes adequate post-tx support plan with mot her and father and close family friend, however the details will need to be confirmed by [place] SW as the the availability of the back up support while patient in [place] area. Per dialysis SW, local physician and [place] SW assessment: counseling is a strong recommendati on for patient at this time. With the fundraising done, the support plan approved and the counseling in place; pt would then appear to be a marginally adequate pediatric candidate for renal transplantation from a psychosocial perspective. Pt's case will be discussed with peds renal transplant team. Regis pears she should remain inactive until these psychosocial issues addressed. [place] SW will chec k in w/pt & family on progress in 3 months. Mariza Hsu, CABLEMAN, ALLIED HEALTH PROFESSIONAL Pediatric Renal Transplant Executive Recruiter pg. #[phone] documented in this en counter Plan of Treatment +--------+ + + + + | Date | Type | Specialty | Care Team | Description | +--------+ + + + + | 05/04/ | Hospital | Adult Acute Care | El Starr MD | | | 2022 | Encounter | | [address] | | | | | | [place], [place] | | | | | | [address] | | | | | | [phone] | | | | | | | | +--------+ + + + + documented as of this encounter Visit Diagnoses Not on filedocumented in this encounter
--- OUTSIDE RECORDS SUMMARY | 2019-12-25 21:25 | XMS | Encounter Summary ---
Demographics + + + | Address | [address] | | | [place] [address] | + + + | Home Phone | | + + + | Preferred Language | Unknown | + + + | Marital Status | Single | + + + | Taoism Affiliation | Unknown | + + + [...] | | | | | [place] [address] | | + + + + + | Thania Mallory | ECON | [address] | | | | | [place] [address] | | + + + + + | Deidra Weldon | ECON | [address] | | | | | [place] | | | | | [address] | | + + + + + Care Team Providers + +------+ + | Care Operator Engineer Name | Role | Phone | + +------+ + | Jonathan Alonso MD | PCP | | + +------+ + Encounter Details +--------+ + + + + | Date | Type | Department | Care Team | Description | +--------+ + + + + | 07/09/ | Lab | LAB IMMUNOGENETIC | Florian Arteaga MD | | | 2014 | Requisition | AND TRANSPLANT LAB | [address] | | | | | [address] | [place], | | | | | [place], | [place] [address] | | | | | [place] [address] | [phone] | | | | | | | [...] [address]ise | | | | | | [place], [place] | | | | | | [address] | | | | | | [phone] | | | | | | | | +--------+ + + + + documented as of this encounter Procedures + +--------+ + + + | Procedure Name | Priori | Date/Time | Associated Diagnosis | Comments | | | ty | | | | + +--------+ + + + | LIT FLOW HLA AB PRA | Routin | 07/09/2014 | | | | SCREEN I/II KE | e | 11:44 AM | | | | | | PDT | | | + +--------+ + + + documented in this encounter Results LIT FLOW HLA AB PRA SCREEN I/II EVA (07/09/2014 11:44 AM PDT) + + | Specimen | + + | Blood - Blood | + + + + + + + | Performing | Address | City/State/Zipcode | Phone Number | | Organization | | | | + + + + + | [facility] - | [address], | [place] [address] | | | IMMUNOGENETICS/TRANS | [address] | | | | [facility] | | | | + + + + + documented in this encounter Visit Diagnoses Not on filedocumented in this encounter"
--- OUTSIDE RECORDS SUMMARY | 2019-12-25 21:25 | XMS | Encounter Summary ---
Demographics + + + | Address | [address] | | | [place] [address] | + + + | Home Phone | | + + + | Preferred Language | Unknown | + + + | Marital Status | Single | + + + | Zoroastrian Affiliation | Unknown | + + + | Race | White | + + + | Ethnic Group | Not or | + + + Author + + + | Author | [facility] | + + + | Organization | [facility] | + + + | Address | Unknown | + + + | Phone | Unavailable | + + + Support + + + + + | Name | Relationship | Address | Phone | + + + + + | Cory Weldon | ECON | [address] | | | | | [place] [address] | | + + + + + | Thania Mallory | ECON | [address] | | | | | [place] [address] | | + + + + + | Deidra Weldon | ECON | [address] | | | | | [place] | | | | | [address] | | + + + + + Care Team Providers + +------+ + | Care Carton Forming Machine Tender Name | Role | Phone | [...] | | | [place], | [place] [address] | | | | | [place] [address] | [phone] | | | | | | | [...] [address] | | | | | | [place] | | | | | | [address] | | | | | | [phone] | | | | | | | | +--------+ + + + + documented as of this encounter Visit Diagnoses Not on filedocumented in this encounter"
--- OUTSIDE RECORDS SUMMARY | 2019-12-25 21:25 | XMS | Encounter Summary ---
Demographics + + + | Address | [address] | | | [place] [address] | + + + | Home Phone | | + + + | Preferred Language | Unknown | + + + | Marital Status | Single | + + + | Holiness Affiliation | Unknown | + + + [...] | | | | | [place] [address] | | + + + + + | Thania Mallory | ECON | [address] | | | | | [place] [address] | | + + + + + | Deidra Weldon | ECON | [address] | | | | | [place] | | | | | [address] | | + + + + + Care Team Providers + +------+ + | Care Aquatic Laborer Name | Role | Phone | + +------+ + | No Pcp Per Patient | PCP | Unavailable | + +------+ + Reason for Visit + +--------+ + | Reason | Onset | Comments | | | Date | | + +--------+ + | KP WL Status | 06/04/ | | | | 2014 | | + +--------+ + Encounter Details +--------+ + + + + | Date | Type | Department | Care Team | Description | +--------+ + + + + | 06/04/ | Telephone | Clinical | Kelsi Martinez, | WL Status | | 2014 | | Transplant Services | RN [address] | | | | | [address] | [facility] | | | | | [facility], | [place], [place] | | | | | [place] [address] | [address] | | | | | [phone] | | | +--------+ + + + [...] this encounter Miscellaneous Notes Telephone Encounter - Eri Lincoln - 06/04/2014 2:53 PM PDTPatient status has been upda wilmer on, date 06/04/2014, to Inactive with reason of Candidate Work-up Incomplete on the Wait ing List and in UN[facility]. ele phone Encounter - Kelsi Martinez RN - 06/04/2014 2:24 PM PDTReceived phone call from pt stating that pt may have potential donor. She is going to talk with this person and get graeme k to us with her name. Pt's living situation has changed recently d/t her father and stepmo ther moving out of state. Pt states that she is currently living with a friend, her friend' s mother and sibling. Discussed with her the importance of having a stable post transplant plan including a support person, stable housing, and the ability to be transported to clinic visits on a very regular basis after transplant. Pt does not have these things stabilized. Instructed her that I would send her the planning ahead form and that needed to be complet ed with a solid plan as soon as possible. Explained to her that given her current situation pt needs to be temped off the donor waitlist until she had a plan in place. Pt un derstood and agreed to the plan. Put pt through to DORON Ko to help her come u p with a plan, discuss options, etc. Electronically signed by Sudhakar Joy MD at 03/2014 6:55 PM PDTdocumented in this encounter Plan of Treatment +--------+ + + + + | Date | Type | Specialty | Care Team | Description | +--------+ + + + + | 05/04/ | Hospital | Adult Acute Care | El Starr MD | | | 2022 | Encounter | | [address] | | | | | | [place], [place] | | | | | | [address] | | | | | | [phone] | | | | | | | | +--------+ + + + + documented as of this encounter Visit Diagnoses Not on filedocumented in this encounter"
--- OUTSIDE RECORDS SUMMARY | 2019-12-25 21:25 | XMS | Encounter Summary ---
Demographics + + + | Address | [address] | | | [place] [address] | + + + | Home Phone [...] Author + + + | Author | [facility] | + + + | Organization | [facility] | + + + | Address | Unknown | + + + | Phone | Unavailable | + + + Support + + + + + | Name | Relationship | Address | Phone | + + + + + | Cory Weldon | ECON | [address] | | | | | [place] [address] | | + + + + + | Thania Mallory | ECON | [address] | | | | | [place] [address] | | + + + + + | Deidra Weldon | ECON | [address] | | | | | [place] | | | | | [address] | | + + + + + Care Team Providers + +------+ + | Care Metal Bumper Name | Role | Phone | + +------+ + | Jonathan Alonso MD | PCP | | + +------+ + Encounter Details +--------+ + + + + | Date | Type | Department | Care Team | Description | +--------+ + + + + | 04/11/ | Ancillary | LAB IMMUNOGENETIC | | | | 2015 | Orders | AND TRANSPLANT LAB | | | | | | [address] | | | | | | [place], | | | | | | [place] [address] | | | +--------+ + + + [...] | +--------+ + + + + | 03/01/ | Hospital | Adult Acute Care | El Starr MD | | | 2022 | Encounter | | [address] | | | | | | [place], [place] | | | | | | [address] | | | | | | [phone] | | | | | | | | +--------+ + + + + documented as of this encounter Procedures + +--------+ + + + | Procedure Name | Priori | Date/Time | Associated Diagnosis | Comments | | | ty | | | | + +--------+ + + + | LIT FLOW HLA AB | Routin | 04/11/2014 | | | | QUICK SCREEN I/II KE | e | 2:52 PM | | | | | | PST | | | + +--------+ + + + documented in this encounter Results LIT FLOW HLA AB QUICK SCREEN I/II KE (04/11/2014 2:52 PM PST) + + | Specimen | + + | Blood - Blood | + + + + + + + | Performing | Address | City/State/Zipcode | Phone Number | | Organization | | | | + + + + + | [facility] - | [address] | [place] [address] | | | IMMUNOGENETICS/TRANS | [address] | | | | [facility] | | | | + + + + + documented in this encounter Visit Diagnoses Not on filedocumented in this encounter"
--- OUTSIDE RECORDS SUMMARY | 2019-12-25 21:25 | XMS | Encounter Summary ---
Demographics + + + | Address | [address] | | | [place] [address] | + + + | Home Phone | | + + + | Preferred Language | Unknown | + + + | Marital Status | Single | + + + | Religion Affiliation | Unknown | + + + [...] | | | | | [place] [address] | | + + + + + | Thania Mallory | ECON | [address] | | | | | [place] [address] | | + + + + + | Deidra Weldon | ECON | [address] | | | | | [place] | | | | | [address] | | + + + + + Care Team Providers + +------+ + | Care Senior Site Manager Name | Role | Phone | + +------+ + | No Pcp Per Patient | PCP | Unavailable | + +------+ + Reason for Visit + + + | Reason | Comments | + + + | Care Coordination | Care Everywher Query | + + + Encounter Details +--------+ + + + + | Date | Type | Department | Care Team | Description | +--------+ + + + + | 03/14/ | Abstract | Clinical | Jesus Edmond, | Care Coordination | | 2015 | | Transplant Services | MD [address] | (Care Everywher | | | | [address] | [address] | Query) | | | | [place], | [place], [place] | | | | | [place] [address] | [address] | | | | | [phone] | [phone] | | | | | | | [...] [address] | | | | | | [place], [place] | | | | | | [address] | | | | | | [phone] | | | | | | | | +--------+ + + + + documented as of this encounter Visit Diagnoses Not on filedocumented in this encounter"
--- OUTSIDE RECORDS SUMMARY | 2019-12-25 21:25 | XMS | Encounter Summary ---
Demographics + + + | Address | [address] | | | [place] [address] | + + + | Home Phone [...] Author + + + | Author | [facility] | + + + | Organization | [facility] | + + + | Address | Unknown | + + + | Phone | Unavailable | + + + Support + + + + + | Name | Relationship | Address | Phone | + + + + + | Cory Weldon | ECON | [address] | | | | | [place] [address] | | + + + + + | Thania Mallory | ECON | [address] | | | | | [place] [address] | | + + + + + | Deidra Weldon | ECON | [address] | | | | | [place] | | | | | [address] | | + + + + + Care Team Providers + +------+ + | Care Cloud Security Architect Name | Role | Phone | + +------+ + | No Pcp Per Patient | PCP | Unavailable | + +------+ + Reason for Visit +--------+--------+ + | Reason | Onset | Comments | | | Date | | +--------+--------+ + | Other | 08/06/ | PRA? | | | 2015 | | +--------+--------+ + Encounter Details +--------+ + + + + | Date | Type | Department | Care Team | Description | +--------+ + + + + | 08/06/ | Telephone | Clinical | Kelsi Martinez, | Other (PRA?) | | 2015 | | Transplant Services | RN [address] | | | | | [address] | [facility] | | | | | [address] [facility], | [place], [place] | | | | | [place] [address] | [address] | | | | | [phone] | | | +--------+ + + + [...] this encounter Miscellaneous Notes Telephone Encounter - [place], Kelsi, RN - 08/06/2014 1:48 PM PDTReceived voice mail fro m pt stating that she had some questions. Contacted pt who wanted to know if PRAs needed to be drawn while pt was inactive on the list. Explained to her that they did not need to be sent. Let her know that the "Planning Ahead" form was returned. She said she hadn't been added to the mailbox but to re-send it now. Discussed with her where she was at with a post transplant plan. Pt stated she is working on it but does not have anything solid yet. Rem inded her that was the only thing keeping her from being active on the donor waitli st and she stated she understood. New "Planning Ahead" form mailed to pt with confirmed add ress. documented in th is encounter Plan of Treatment +--------+ + + + + | Date | Type | Specialty | Care Team | Description | +--------+ + + + + | 05/04/ | Hospital | Adult Acute Care | El Starr MD | | | 2022 | Encounter | | [address] | | | | | | [place], [place] | | | | | | [address] | | | | | | [phone] | | | | | | | | +--------+ + + + + documented as of this encounter Visit Diagnoses Not on filedocumented in this encounter
--- OUTSIDE RECORDS SUMMARY | 2019-12-25 21:25 | XMS | Encounter Summary ---
Demographics + + + | Address | [address] | | | [place] [address] | + + + | Home Phone | | + + + | Preferred Language | Unknown | + + + | Marital Status | Single | + + + | Mandaen Affiliation | Unknown | + + + | Race | White | + + + | Ethnic Group | Not or | + + + Author + + + | Author | [facility] | + + + | Organization | [facility] | + + + | Address | Unknown | + + + | Phone | Unavailable | + + + Support + + + + + | Name | Relationship | Address | Phone | + + + + + | Cory Weldon | ECON | [address] | | | | | [place] [address] | | + + + + + | Thania Mallory | ECON | [address] | | | | | [place] [address] | | + + + + + | Deidra Weldon | ECON | [address] | | | | | [place] | | | | | [address] | | + + + + + Care Team Providers + +------+ + | Care Texturing Machine Fixer Name | Role | Phone | + +------+ + | No Pcp Per Patient | PCP | Unavailable | + +------+ + Reason for Visit +--------+ + | Reason | Comments | +--------+ + | Other | Planning ahead form | +--------+ + Encounter Details +--------+ + + + + | Date | Type | Department | Care Team | Description | +--------+ + + + + | 09/01/ | Documentati | Clinical | Kelsi Martinez, | Other (Planning | | 2014 | on | Transplant Services | RN [address] | ahead form) | | | | [address] | [facility] | | | | | [address] [place], | [place], [place] | | | | | [place] [address] | [address] | | | | | [phone] | | | +--------+ + + + [...] Telephone Encounter - Kelsi Martinez RN - 09/01/2014 12:02 PM PDTLate entry from 015: Received Planning Ahead Form but pt has no set plan regarding funds for covering the month stay after transplant. Contacted DORON Ko to contact pt and determine the plan . Pt remains inactive on the donor list until a solid plan is in place.Rogersa marie signed by Kelsi Martinez RN at 09/01/2014 12:06 PM PDTdocumented in this encounter Plan of Treatment +--------+ + + + + | Date | Type | Specialty | Care Team | Description | +--------+ + + + + | 05/04/ | Hospital | Adult Acute Care | El Starr MD | | | 2022 | Encounter | | [address] | | | | | | [place], [place] | | | | | | [address] | | | | | | [phone] | | | | | | | | +--------+ + + + + documented as of this encounter Visit Diagnoses Not on filedocumented in this encounter"
--- OUTSIDE RECORDS SUMMARY | 2019-12-25 21:25 | XMS | Encounter Summary ---
Demographics + + + | Address | [address] | | | [place] [address] | + + + | Home Phone | | + + + | Preferred Language | Unknown | + + + | Marital Status | Single | + + + | Samaritan Affiliation | Unknown | + + + [...] | + + + + + | Coyr Weldon | ECON | [address] | | | | | [place] [address] | | + + + + + | Thania Mallory | ECON | [address] | | | | | [place] [address] | | + + + + + | Deidra Weldon | ECON | [address] | | | | | [place] | | | | | [address] | | + + + + + Care Team Providers + +------+ + | Care Director Public Service Name | Role | Phone | + +------+ + | Jonathan Alonso MD | PCP | | + +------+ + Encounter Details +--------+ + + + + | Date | Type | Department | Care Team | Description | +--------+ + + + + | 05/12/ | Ancillary | LAB IMMUNOGENETIC | | | | 2015 | Orders | AND TRANSPLANT LAB | | | | | | [address] | | | | | | [address] [place], | | | | | | [place] [address] | | | +--------+ + + + [...] +--------+ + + + + | 03/01/ Hospital | Adult Acute Care | El Starr MD | | | 2022 | Encounter | | [address] | | | | | | [place], [place] | | | | | | [address] | | | | | | [phone] | | | | | | | | +--------+ + + + + documented as of this encounter Procedures + +--------+ + + + | Procedure Name | Priori | Date/Time | Associated Diagnosis | Comments | | | ty | | | | + +--------+ + + + | LIT FLOW HLA AB | Routin | 05/12/2014 | | | | QUICK SCREEN I/II KE | e | 10:26 AM | | | | | | PDT | | | + +--------+ + + + documented in this encounter Results LIT FLOW HLA AB QUICK SCREEN I/II KE (05/12/2014 10:26 AM PDT) + + | Specimen | + + | Blood - Blood | + + + + + + + | Performing | Address | City/State/Zipcode | Phone Number | | Organization | | | | + + + + + | [facility] - | [address] | [place] [address] | | | IMMUNOGENETICS/TRANS | [address] | | | | [facility] | | | | + + + + + documented in this encounter Visit Diagnoses Not on filedocumented in this encounter"
--- OUTSIDE RECORDS SUMMARY | 2019-12-25 21:25 | XMS | Encounter Summary ---
Demographics + + + | Address | [address] | | | [place] [address] | + + + | Home Phone [...] Author | [facility] | + + + | Organization | [facility] | + + + | Address | Unknown | + + + | Phone | Unavailable | + + + Support + + + + + | Name | Relationship | Address | Phone | + + + + + | Cory Weldon | ECON | [address] | | | | | [place] [address] | | + + + + + | Thania Mallory | ECON | [address] | | | | | [place] [address] | | + + + + + | Deidra Weldon | ECON | [address] | | | | | [place] | | | | | [address] | | + + + + + Care Team Providers + +------+ + | Care Underwriting Support Specialist Name | Role | Phone | + +------+ + | Jonathan Alonso MD | PCP | | + +------+ + Encounter Details +--------+ + + + + | Date | Type | Department | Care Team | Description | +--------+ + + + + | 06/10/ | Ancillary | LAB IMMUNOGENETIC | | | | 2015 | Orders | AND TRANSPLANT LAB | | | | | | [address] | | | | | | [address] [place], | | | | | | [place] [address] | | | +--------+ + + + [...] [address] | | | | | | [place], [place] | | | | | | [address] | | | | | | [phone] | | | | | | | | +--------+ + + + + documented as of this encounter Procedures + +--------+ + + + | Procedure Name | Priori | Date/Time | Associated Diagnosis | Comments | | | ty | | | | + +--------+ + + + | LIT FLOW HLA II AB | Routin | 06/10/2014 | End stage renal | | | AG ID KE, BLOOD | e | 4:54 PM | disease [ICD-9-CM] | | | | | PDT | | | + +--------+ + + + documented in this encounter Results LIT FLOW HLA II AB AG ID KE, BLOOD (06/10/2014 4:54 PM PDT) + + | Specimen | + + | Blood - Blood | + + + + + + + | Performing | Address | City/State/Zipcode | Phone Number | | Organization | | | | + + + + + | [facility] - | [address] | [place] [address] | | | IMMUNOGENETICS/TRANS | [address] | | | | [facility] | | | | + + + + + documented in this encounter Visit Diagnoses + + | Diagnosis | + + | End stage renal disease (HCC) End stage renal disease | + + documented in this encounter"
--- OUTSIDE RECORDS SUMMARY | 2019-12-25 21:25 | XMS | Encounter Summary ---
Demographics + + + | Address | [address] | | | [place] [address] | + + + | Home Phone | | + + + | Preferred Language | Unknown | + + + | Marital Status | Single | + + + | Bahai Affiliation | Unknown | + + + | Race | White | + + + | Ethnic Group | Not or | + + + Author + + + | Author | [facility] | + + + | Organization | [facility] | + + + | Address | Unknown | + + + | Phone | Unavailable | + + + Support + + + + + | Name | Relationship | Address | Phone | + + + + + | Cory Weldon | ECON | [address] | | | | | [place] [address] | | + + + + + | Thania Mallory | ECON | [address] | | | | | [place] [address] | | + + + + + | Deidra Weldon | ECON | [address] | | | | | [place] | | | | | [address] | | + + + + + Care Team Providers + +------+ + | Care Buyer Tobacco Head Name | Role | Phone | + +------+ + | No Pcp Per Patient | PCP | Unavailable | + +------+ + Reason for Visit +--------+--------+ + | Reason | Onset | Comments | | | Date | | +--------+--------+ + | Other | 03/12/ | Fistula | | | 2014 | | +--------+--------+ + Encounter Details +--------+ + + + + | Date | Type | Department | Care Team | Description | +--------+ + + + + | 03/12/ | Telephone | Clinical | Kelsi Martinez, | Other ([facility]) | | 2015 | | Transplant Services | RN [address] | | | | | [address] | [facility] | | | | | [address] [place], | [place], [place] | | | | | [place] [address] | [address] | | | | | [phone] | | | +--------+ + + + [...] encounter Miscellaneous Notes Telephone Encounter - Kelsi Martinez, RN - 03/12/2014 9:36 AM PSTReceived phone call fro m pt stating that she received a fistula over the . Pt is having problems with it and will have to go in and have a revision. Requested pt notify this office so that pt may be temped off the donor waitlist. Pt states that PRA was drawn on 03/10/19 15 and pt is in the process of scheduling a dental appt. Pt also said that her father and stepmother will be moving to [place] in a few months but p t will remain in [place]. Suspect pt will need additional support when parents move and will need a new planning ahead form d/t significant change in pt's living situation. Reques wilmer that pt contact this office when her parents move. Pt agreed to notify this office.Elec tronically signed by Sudhakar Joy MD at 03/13/2014 8:57 PM PSTdocumented in this enco unter Plan of Treatment +--------+ + + + + | Date | Type | Specialty | Care Team | Description | +--------+ + + + + | 05/04/ | Hospital | Adult Acute Care | lE Starr MD | | | 2022 | Encounter | | [address] | | | | | | [place], [place] | | | | | | [address] | | | | | | [phone] | | | | | | | | +--------+ + + + + documented as of this encounter Visit Diagnoses Not on filedocumented in this encounter"
--- OUTSIDE RECORDS SUMMARY | 2019-12-25 21:25 | XMS | Encounter Summary ---
Demographics + + + | Address | [address] | | | [place] [address] | + + + | Home Phone [...] + + + | Author | [facility] | + + + | Organization | [facility] | + + + | Address | Unknown | + + + | Phone | Unavailable | + + + Support + + + + + | Name | Relationship | Address | Phone | + + + + + | Cory Weldon | ECON | [address] | | | | | [place] [address] | | + + + + + | Thania Mallory | ECON | [address] | | | | | [place] [address] | | + + + + + | Deidra Weldon | ECON | [address] | | | | | [place] | | | | | [address] | | + + + + + Care Team Providers + +------+ + | Care Manager Hris Name | Role | Phone | + +------+ + | Jonathan Alonso MD | PCP | | + +------+ + Encounter Details +--------+ + + + + | Date | Type | Department | Care Team | Description | +--------+ + + + + | 06/09/ | Ancillary | LAB IMMUNOGENETIC | | | | 2015 | Orders | AND TRANSPLANT LAB | | | | | | [address] | | | | | | [address] [place], | | | | | | [place] [address] | | | +--------+ + + + [...] [address] | | | | | | [place], [place] | | | | | | [address] | | | | | | [phone] | | | | | | | | +--------+ + + + + documented as of this encounter Procedures + +--------+ + + + | Procedure Name | Priori | Date/Time | Associated Diagnosis | Comments | | | ty | | | | + +--------+ + + + | LIT FLOW HLA AB PRA | Routin | 06/09/2014 | | | | SCREEN I/II KE | e | 9:33 AM | | | | | | PDT | | | + +--------+ + + + documented in this encounter Results LIT FLOW HLA AB PRA SCREEN I/II KE (06/09/2014 9:33 AM PDT) + + | Specimen | + + | Blood - Blood | + + + + + + + | Performing | Address | City/State/Zipcode | Phone Number | | Organization | | | | + + + + + | [facility] - | [address] | [place] [address] | | | IMMUNOGENETICS/TRANS | [address] | | | | [facility] | | | | + + + + + documented in this encounter Visit Diagnoses Not on filedocumented in this encounter"
--- OUTSIDE RECORDS SUMMARY | 2019-12-25 21:25 | XMS | Encounter Summary ---
Demographics + + + | Address | [address] | | | [place] [address] | + + + | Home Phone | | + + + | Preferred Language | Unknown | + + + | Marital Status | Single | + + + | Yarsani Affiliation | Unknown | + + + [...] | | | | | [place] [address] | | + + + + + | Thania Mallory | ECON | [address] | | | | | [place] [address] | | + + + + + | Deidra Weldon | ECON | [address] | | | | | [place] | | | | | [address] | | + + + + + Care Team Providers + +------+ + | Care Fire Coordinator Name | Role | Phone | + +------+ + | No Pcp Per Patient | PCP | Unavailable | + +------+ + Reason for Visit + +--------+ + | Reason | Onset | Comments | | | Date | | + +--------+ + | Social Work Waitlist | 06/04/ | changes to pt's living/support situation | | Update | 2015 | | + +--------+ + Encounter Details +--------+ + + + + | Date | Type | Department | Care Team | Description | +--------+ + + + + | 06/04/ | Telephone | Clinical | Mariza Hsu | Social Work Waitlist | | 2014 | | Transplant Services | [address] | Update (changes to | | | | [address] | [address] | pt's living/support | | | | [address] [place], | [place], [place] | situation) | | | | [place] [address] | [address] | | | | | [phone] | | | +--------+ + + + [...] Notes Telephone Encounter - Mariza Hsu - 06/05/2014 2:52 PM PDT4- (2:00pm) Receiv ed call by [facility] [place] RN, who transferred pt to discuss with [place] SW changes in her living and support situation. Pt is well known to [place] SW since evaluation and pre-tx contacts relat ed to her psychosocial situations. Pt is currently on [facility] waiting list, will need to be ma de inactive due to following: Living Situation: Pt, who was previously living with her father and step-mother in [facility], then when the y [place] town to go to [place] weeks, dad lost his job and so now they are lving in [place] , [place] to be near step-mom's job and his possible new job. Pt says they are no longer option for her to live with. She lived briefly with her grandmother, now says that situation "didn 't work out" then she lived with her bio mother for a period but states, as she has frequent ly reported, they "fought too much" so she could not remain living there either. This was a ll within the last several months time and pt has not called to inform [place] staff [facility], we have initiated the contacts. Pt says she is living temporarily with a friend in at friend's parents home. Pt says they are allowing her to live there "through graduation" later this spring, because they were aware of her living situation "issues." Pt states she plans after graduation, to move to [place] to live with another "best friend" who wants to attend college there. They plan to get an apartment together but unclear the resources to support their plan at present time. Financial: Pt says she receives about $300 per month in child support, which allows her to keep her ce ll phone and have some spending money. Pt reports her SSI amount, which we've discussed in the past can go to her now due to her age, is currently "frozen" by SSA due to lapses in doc umentation by her former payees, dad and step-mom. Pt says she is trying to "resolve this" but is having difficulty as to it being a past problem she did not create. It stopped in Apr. [place] SW offered assistance and advice. Post-[place] Support Plan: Pt says she is no longer able to rely on her father/stepmother or her mother to be her prim anne customer care representative in the post-tx period. Pt has not identified a new primary support person an d this need is still pending. Pt is planning to ask a friend possibly. Instructed pt that her primary support can call me to discuss level of needs, they may need to attend class and would need to be over age of 25 in order for her to stay at [facility] as planned. Transportation , both to [facility] at call-in and aftercare also needed. Plan: Due to the above social instabilities of lack of adequate post-tx support plan, transportat ion or stable housing - - pt should be made inactive on the Waiting List until adequately re solved. Pt states she understands this step and the reason for it. She will be mailed a ne w PAF and welcomed to call [place] ANNALISA to discuss details on form or to have [place] SW speak with her new support person once identified. Mariza Hsu, OVERHEAD CLEANER, CLINICAL SCIENCE LIAISON Pediatric Renal Transplant Dye Operator pg. #[phone] documented in this en counter Plan of Treatment +--------+ + + + + | Date | Type | Specialty | Care Team | Description | +--------+ + + + + | 05/04/ | Hospital | Adult Acute Care | El Starr MD | | | 2022 | Encounter | | [address] | | | | | | [place] | | | | | | [address] | | | | | | [phone] | | | | | | | | +--------+ + + + + documented as of this encounter Visit Diagnoses Not on filedocumented in this encounter
--- OUTSIDE RECORDS SUMMARY | 2019-12-25 21:25 | XMS | Encounter Summary ---
Demographics + + + | Address | [address] | | | [place] [address] | + + + | Home Phone | | + + + | Preferred Language | Unknown | + + + | Marital Status | Single | + + + | Adventism Affiliation | Unknown | + + + | Race | White | + + + | Ethnic Group | Not or | + + + Author + + + | Author | [facility] | + + + | Organization | [facility] | + + + | Address | Unknown | + + + | Phone | Unavailable | + + + Support + + + + + | Name | Relationship | Address | Phone | + + + + + | Cory Weldon | ECON | [address] | | | | | [place] [address] | | + + + + + | Thania Mallory | ECON | [address] | | | | | [place] [address] | | + + + + + | Deidra Weldon | ECON | [address] | | | | | [place] | | | | | [address] | | + + + + + Care Team Providers + +------+ + | Care Informatica Mdm Architect Name | Role | Phone | + +------+ + | No Pcp Per Patient | PCP | Unavailable | + +------+ + Reason for Visit + +--------+ + | Reason | Onset | Comments | | | Date | | + +--------+ + | Social work | 05/02/ | [place] SW attempt(s) to contact pt re move and new PAF as | | consultation | 2015 | listed | + +--------+ + Encounter Details +--------+ + + + + | Date | Type | Department | Care Team | Description | +--------+ + + + + | 05/02/ | Telephone | Clinical | Mariza Hsu | Social work | | 2015 | | Transplant Services | [address] | consultation ([address] | | | | [address] | [address] | attempt(s) to | | | | [address] [place], | [place], [place] | contact pt re move | | | | [place] [address] | [address] | and new PAF as | | | | [phone] | | listed) | +--------+ + + + + Social [...] [address] | | | | | | [place], [place] | | | | | | [address] | | | | | | [phone] | | | | | | | | +--------+ + + + + documented as of this encounter Visit Diagnoses Not on filedocumented in this encounter"
--- OUTSIDE RECORDS SUMMARY | 2019-12-25 21:25 | XMS | Encounter Summary ---
Demographics + + + | Address | [address] | | | [place] [address] | + + + | Home Phone [...] + + + | Author | [facility] | + + + | Organization | [facility] | + + + | Address | Unknown | + + + | Phone | Unavailable | + + + Support + + + + + | Name | Relationship | Address | Phone | + + + + + | Cory Weldon | ECON | [address] | | | | | [place] [address] | | + + + + + | Thania Mallory | ECON | [address] | | | | | [place] [address] | | + + + + + | Deidra Weldon | ECON | [address] | | | | | [place] | | | | | [address] | | + + + + + Care Team Providers + +------+ + | Care Supervisor Fertilizer Name | Role | Phone | + +------+ + | No Pcp Per Patient | PCP | Unavailable | + +------+ + Reason for Visit +--------+--------+ + | Reason | Onset | Comments | | | Date | | +--------+--------+ + | Other | 03/31/ | Pt has moved | | | 2014 | | +--------+--------+ + Encounter Details +--------+ + + + + | Date | Type | Department | Care Team | Description | +--------+ + + + + | 03/31/ | Telephone | Clinical | Kelsi Martinez, | Other (Pt has moved) | | 2014 | | Transplant Services | RN [address] | | | | | [address] | [facility] | | | | | [address] [place], | [place], [place] | | | | | [place] [address] | [address] | | | | | [phone] | | | +--------+ + + + [...] Telephone Encounter - Kelsi Martinez RN - 03/31/2014 3:31 PM PSTReceived phone call fro m pt stating that she no longer lives with her father and stepmother because they are moving to [place]. Pt states that she is living with a family friend but doesn't know the address . She will contact this office with the address and new phone numbers. Due to this signifi cant change in the pt's living situation, when she calls with the updated information I will request that she complete a new planning ahead form since previously her parents were her s upport and transportation. P M PSTdocumented in this encounter Plan of Treatment +--------+ + + + + | Date | Type | Specialty | Care Team | Description | +--------+ + + + + | 05/04/ | Hospital | Adult Acute Care | El Starr MD | | | 2022 | Encounter | | [address] | | | | | | [place], [place] | | | | | | [address] | | | | | | [phone] | | | | | | | | +--------+ + + + + documented as of this encounter Visit Diagnoses Not on filedocumented in this encounter"
--- OUTSIDE RECORDS SUMMARY | 2019-12-25 21:25 | XMS | Encounter Summary ---
Demographics + + + | Address | [address] | | | [place] [address] | + + + | Home Phone | | + + + | Preferred Language | Unknown | + + + | Marital Status | Single | + + + | Restorationist Affiliation | Unknown | + + + | Race | White | + + + | Ethnic Group | Not or | + + + Author + + + | Author | [facility] | + + + | Organization | [facility] | + + + | Address | Unknown | + + + | Phone | Unavailable | + + + Support + + + + + | Name | Relationship | Address | Phone | + + + + + | Cory Weldon | ECON | [address] | | | | | [place] [address] | | + + + + + | Thania Mallory | ECON | [address] | | | | | [place] [address] | | + + + + + | Deidra Weldon | ECON | [address] | | | | | [place] | | | | | [address] | | + + + + + Care Team Providers + +------+ + | Care Cider Maker Name | Role | Phone | + +------+ + | Jonathan Alonso MD | PCP | | + +------+ + Encounter Details +--------+ + + + + | Date | Type | Department | Care Team | Description | +--------+ + + + + | 03/18/ | Ancillary | LAB IMMUNOGENETIC | | | | 2015 | Orders | AND TRANSPLANT LAB | | | | | | [address] | | | | | | [place], | | | | | | [place] [address] | | | +--------+ + + + [...] Denise | | | | | | [place], [place] | | | | | | [address] | | | | | | [phone] | | | | | | | | +--------+ + + + + documented as of this encounter Procedures + +--------+ + + + | Procedure Name | Priori | Date/Time | Associated Diagnosis | Comments | | | ty | | | | + +--------+ + + + | LIT FLOW HLA AB PRA | Routin | 03/18/2014 | End stage renal | | | SCREEN I/II KE | e | 7:45 AM | disease [ICD-9-CM] | | | | | PST | | | + +--------+ + + + | LIT FLOW HLA II AB | Routin | 03/18/2014 | End stage renal | | | AG ID KE, BLOOD | e | 7:45 AM | disease [ICD-9-CM] | | | | | PST | | | + +--------+ + + + | LIT FLOW HLA I AB ID | Routin | 03/18/2014 | End stage renal | Results for this | | KE, BLOOD | e | 7:45 AM | disease [ICD-9-CM] | procedure are in the | | | | PST | | results section. | + +--------+ + + + documented in this encounter Results LIT FLOW HLA AB PRA SCREEN I/II KE (03/18/2014 7:45 AM PST) + + | Specimen | + + | Blood - Blood | + + + + + + + | Performing | Address | City/State/Zipcode | Phone Number | | Organization | | | | + + + + + | [facility] - | [address] | [place] [address] | | | IMMUNOGENETICS/TRANS | [address] | | | | [facility] | | | | + + + + + LIT FLOW HLA II AB AG ID EVA BLOOD (03/18/2014 7:45 AM PST) + + | Specimen | + + | Blood - Blood | + + + + + + + | Performing | Address | City/State/Zipcode | Phone Number | | Organization | | | | + + + + + | [facility] - | [address] | [place] [address] | | | IMMUNOGENETICS/TRANS | [address] | | | | [facility] | | | | + + + + + LIT FLOW HLA I AB ID KE, BLOOD (03/18/2014 7:45 AM PST) + + + + + + | Component | Value | Ref Range | Performed | Pathologist | | | | | At | Signature | + + + + + + | LABEL ONLY | Please see lab report | | [facility] - | | | - LIT | for result. | | IMMUNOGENET | | | | | | ICS/TRANSPL | | | | | | ANT | | | | | | LABORATORY | | + + + + + + + + | Specimen | + + | Blood - Blood | + + + + + + + | Performing | Address | City/State/Zipcode | Phone Number | | Organization | | | | + + + + + | [facility] - | [address] | [place] [address] | | | IMMUNOGENETICS/TRANS | [address] | | | | [facility] | | | | + + + + + documented in this encounter Visit Diagnoses + + | Diagnosis | + + | End stage renal disease (HCC) End stage renal disease | + + documented in this encounter"
--- OUTSIDE RECORDS SUMMARY | 2019-12-25 21:26 | XMS | Encounter Summary ---
Demographics + + + | Address | [address] | | | [place] [address] | + + + | Home Phone | | + + + | Preferred Language | Unknown | + + + | Marital Status | Single | + + + | Baptism Affiliation | Unknown | + + + | Race | White | + + + | Ethnic Group | Not or | + + + Author + + + | Author | [facility] | + + + | Organization | [facility] | + + + | Address | Unknown | + + + | Phone | Unavailable | + + + Support + + + + + | Name | Relationship | Address | Phone | + + + + + | Cory Weldon | ECON | [address] | | | | | [place] [address] | | + + + + + | Thania Mallory | ECON | [address] | | | | | [place] [address] | | + + + + + | Deidra Weldon | ECON | [address] | | | | | [place] | | | | | [address] | | + + + + + Care Team Providers + +------+ + | Care Research Investigator Name | Role | Phone | + +------+ + | No Pcp Per Patient | PCP | Unavailable | + +------+ + Reason for Visit + + + | Reason | Comments | + + + | KP Waitlist | Correct list date | + + + Encounter Details +--------+ + + + + | Date | Type | Department | Care Team | Description | +--------+ + + + + | 03/07/ | Documentati | Clinical | Kelsi Martinez, | Waitlist (Correct | | 2015 | on | Transplant Services | RN [address] | list date) | | | | [address] | [facility] | | | | | [address] [place], | [place], [place] | | | | | [place] [address] | [address] | | | | | [phone] | | | +--------+ + + + [...] Telephone Encounter - Kelsi Martinez RN - 03/07/2014 8:39 AM PSTIncorrectly documented pt's list date for center list date, misunderstood that only [facility] matches dialysis start vadim e. documented in this encounter Plan of Treatment +--------+ + + + + | Date | Type | Specialty | Care Team | Description | +--------+ + + + + | 05/04/ | Hospital | Adult Acute Care | El Starr MD | | | 2022 | Encounter | | [address] | | | | | | [place], [place] | | | | | | [address] | | | | | | [phone] | | | | | | | | +--------+ + + + + documented as of this encounter Visit Diagnoses Not on filedocumented in this encounter"
--- OUTSIDE RECORDS SUMMARY | 2019-12-25 21:26 | XMS | Encounter Summary ---
Demographics + + + | Address | [address] | | | [place] [address] | + + + | Home Phone [...] Author + + + | Author | [facility] | + + + | Organization | [facility] | + + + | Address | Unknown | + + + | Phone | Unavailable | + + + Support + + + + + | Name | Relationship | Address | Phone | + + + + + | Cory Weldon | ECON | [address] | | | | | [place] [address] | | + + + + + | Thania Mallory | ECON | [address] | | | | | [place] [address] | | + + + + + | Deidra Weldon | ECON | [address] | | | | | [place] | | | | | [phone] | | + + + + + Care Team Providers + +------+ + | Care Health Spa Manager Name | Role | Phone | + +------+ + | No Pcp Per Patient | PCP | Unavailable | + +------+ + Reason for Visit + +--------+ + | Reason | Onset | Comments | | | Date | | + +--------+ + | Laboratory Test | 02/10/ | | | Requested | 2013 | | + +--------+ + Encounter Details +--------+ + + + + | Date | Type | Department | Care Team | Description | +--------+ + + + + | 02/10/ | Telephone | Clinical | Kelsi Martinez, | Laboratory Test | | 2013 | | Transplant Services | RN [address] | Requested | | | | [address] | [facility] | | | | | [address] [place], | [place], [place] | | | | | [place] [address] | [address] | | | | | [phone] | | | +--------+ + + + [...] Telephone Encounter - Kelsi Martinez RN - 02/10/2014 1:05 PM PSTContacted raquel serna stated she will get pt in for dental appt as soon as possible. Also, mailers for the PRA just arrived so pt will have that drawn at dialysis on 02/12/2014. Pt will be re-presented to the Pediatric Committee Review before listing for donor transplant.Electronicall y signed by Kelsi Martinez RN at 02/10/2014 1:06 PM PSTdocumented in this encounter Plan of Treatment +--------+ + + + + | Date | Type | Specialty | Care Team | Description | +--------+ + + + + | 05/04/ | Hospital | Adult Acute Care | El Starr MD | | | 2022 | Encounter | | [address] | | | | | | [place], [place] | | | | | | [address] | | | | | | [phone] | | | | | | | | +--------+ + + + + documented as of this encounter Visit Diagnoses Not on filedocumented in this encounter"
--- OUTSIDE RECORDS SUMMARY | 2019-12-25 21:26 | XMS | Encounter Summary ---
Demographics + + + | Address | [address] | | | [place] [address] | + + + | Home Phone | | + + + | Preferred Language | Unknown | + + + | Marital Status | Single | + + + | Synagogue Affiliation | Unknown | + + + | Race | White | + + + | Ethnic Group | Not or | + + + Author + + + | Author | [facility] | + + + | Organization | [facility] | + + + | Address | Unknown | + + + | Phone | Unavailable | + + + Support + + + + + | Name | Relationship | Address | Phone | + + + + + | Cory Weldon | ECON | [address] | | | | | [place] [address] | | + + + + + | Thania Mallory | ECON | [address] | | | | | [place] [address] | | + + + + + | Deidra Welodn | ECON | [address] | | | | | [place] | | | | | [address] | | + + + + + Care Team Providers + +------+ + | Care Lacrosse Coach Name | Role | Phone | + +------+ + | No Pcp Per Patient | PCP | Unavailable | + +------+ + Reason for Visit + + + | Reason | Comments | + + + | Social Work | pre-listing pediatric [place] SW update | | Transplant | | | Evaluation | | + + + Encounter Details +--------+ + + + + | Date | Type | Department | Care Team | Description | +--------+ + + + + | 02/07/ | Documentati | Clinical | Mariza Hsu | Social Work | | 2014 | on | Transplant Services | [address] | Transplant | | | | [address] | [address] | Evaluation | | | | [address] [place], | [place], [place] | (pre-listing | | | | [place] [address] | [address] | pediatric [place] SW | | | | [phone] | | update) | +--------+ + + + + Social [...] Telephone Encounter - Mariza Hsu Brigitte - 02/12/2014 6:58 PM PSTPediatric Transplant Soc ial Work Evaluation - Update Purpose of Interview: Dara Weldon is a 18 year old female who participated in an update telephone [place] ANNALISA inter view on 02-07-14 to review the psychosocial section of the her pediatric renal transplant zachary fabien. As part of this update, pt's stepmother, Deidra, was also interviewed via telepho ne on 02-06-14 as well as [place] SW received input on her psychosocial progress from pt's [facility] staff (both RN and SW) in [place] via telephone on 02-10-14. Patient s original pre-listing psychosocial evaluation was done on 12-19-12. Patient was deferred at that [facility] due to various instabilities in her psychosocial situation as well as pending the evaluati on of potential living donors. She has not yet been placed on the waiting list but is in [facility] process of reconsideration for listing by the pediatric transplant team. Current Living Situation: Dara's family, her father Clayton and stepmother Deidra, abruptly lost their housing when [facility] property was sold by the [employer] filler without warning. They moved in with Deidra's mother, in [facility] on December 28, 2013. In addition to Deidra's mother, there are two young male [facility] family members, pt's stepbrothers, (ages 21 & 23) living in the same home. Patient repor ts they are not supportive of her and she finds it difficult to be around them. According dari Gay, this living situation is temporary and they are trying to locate other, separate h ousing in the near future. Future Plans: Dara reports that she has detailed and specific plans to move to [place], [place] with her best friend named Tai, whom she has known since kindergarten once they graduate from high school this spring. Patient has relatives who live there they can stay with until they can move into their own apartment. 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 Chani chapin has located a [facility] center there to transfer her dialysis. [place] SW encouraged patient to d iscuss such plans with her whole family as everyone's support will be important during any t ype of life transition, especially with long-term challenges of supporting independence and keeping stability of her chronic renal failure. Patient's education: Dara states she is doing "fine" at school, she is in her senior year at [employer], she a ttends on non-dialysis days and views the school as less supportive of her medical condition . Dialysis staff report that patient has declined in academic performance and struggles to pass classes. 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 Deidra enjoys her work and has a relatively supportive emplo ministerio. Clayton is still employed cloth examiner machine at [employer] in sales, however he is laid off [facility] [employer] in winter. He is working now but this is expected to change. Financial/Insurance Issues: Household income is from parents employment and patient receives full allowance of ($710) SSI [place]. Patient's mother Thania helps out patient in minor ways with personal expenses ( cell) but this is not consistent. Family reports to be meeting basic needs due to living wi pierre Gay's mom, but they do not have extra funds after paying bills. Patient is concerned about the length of time she will be eligible for SSI in the post-tx p eriod. She began receiving it at age 10, prior to starting dialysis, however the adult crite phil for disability is often more stringent than for conditions in childhood. Pt believes he r condition to be permanent and remain even after a successful transplant. [place] ANNALISA advised sindy hamilton not to count on SSI pierson award intermediate, likely removal in 1-3 years post-tx. Deidra is concerned so we reviewed process for pt's SSI once she turns 19 in 3 weeks time; this wi ll go directly to patient unless anyone acts as a payee. Dialysis/compliance update: Dara moved from doing home peritoneal dialysis to in-center hemodialysis in July 2013 due to ongoing instabilities on that modality. She reports it is going "way better" on hemo for her. A combination of her parents (mom, dad, stepmom) take her to and from dialysis. She attends and stays for all runs, her labs have been overall stable, she is able to take binde rs consistently. Deidra reports Dara still requires rather intense reminders, supervision and verification of meds taken and that she struggles to make renal friendly food choices. Dialysis center staff confirm patient's dialysis is overall stable and she has made improve ments in adhering to medical treatment goals while on hemo. Patient's mental health/adjustment to disease: While Dara denies struggles with her mood at this time, such as depression or anxiety, anitha quarles did find the "loss" of their plan to have her father donate a kidney to her very disappoin ting. It was determined he was not a medical candidate for donation surgery. It took her s ome time to adjust to this emotionally. Dialysis staff report pt experiences high degree of emotional conflict with various family (dad, mother, stepbrothers) and that she presents wi th anger as well as has difficulty with honesty. Pt's dialysis SW believes patient needs re gular counseling for formal support about the stressors in her home/family relationship corrie mics as SW sees these unhealthy conflictual relationships to be a significant concern for sindy hamilton's overall well-being that could impact her medical care. Dialysis SW set up counselor at pt's school, however this is inconsistent so she will pursue referral to a more reliable formal therapist for patient. Post Hospital Care Plan: Pt's father Clayton will be her primary support person at time of the transplant. He can take off work for up to a month. They will stay at the local [facility] and he will have a working vehicle. Supplemental support will be from pt's mother Jessie (depending on ho w pt is relating to her at that time as Dara reports this is "off and on" in terms of them interacting) as well as Deidra for weekends, grandparent and friends to visit. They may swanson ve some funds from Medicaid to offset costs of the travel/stay. Family aware of the [facility] schedule of frequent labs and clinic visits during the month following surgery and states will be able to comply. Pt has all necessary home supplies for post-tx care: Blood pressu re monitor/cuff, weigh scale, working thermometer. Pt is regularly reviewing tx materials. Additional Comments: If patient's living situation changes and she becomes independent of her current support; h er psychosocial stability will need to be re-evaluated by [place] SW. Patient was instructed to contact [place] SW to keep updates current given her plans to move out in the next year. Plan: Patient remains at elevated risk for non-adherence due to age, history of problems and poor family dynamics. However she has made notable progress in this area and has maintained adeq uate health care behaviors around dialysis. Family verbalizes adequate post-tx support plan . Per dialysis and [place] SW assessment: counseling is a strong recommendation for patient at th is time both of transition and disclosed conflictual relationships at home which may escalat e at pt turns 19. Pt appears to be a marginally adequate pediatric candidate for renal transplantation from a psychosocial perspective. Mariza Hus, IMMUNOLOGY SPECIALIST, FUEL CELL REPAIRER Pediatric Renal Transplant Siding Mechanic pg. #[phone] documented in this en counter Plan of Treatment +--------+ + + + + | Date | Type | Specialty | Care Team | Description | +--------+ + + + + | 05/04/ | Hospital | Adult Acute Care | El Starr MD | | | 2022 | Encounter | | [address] | | | | | | [place], [place] | | | | | | [address] | | | | | | [phone] | | | | | | | | +--------+ + + + + documented as of this encounter Visit Diagnoses Not on filedocumented in this encounter
--- OUTSIDE RECORDS SUMMARY | 2019-12-25 21:26 | XMS | Encounter Summary ---
Demographics + + + | Address | [address] | | | [place] [address] | + + + | Home Phone [...] + + + | Author | [facility] | + + + | Organization | [facility] | + + + | Address | Unknown | + + + | Phone | Unavailable | + + + Support + + + + + | Name | Relationship | Address | Phone | + + + + + | Cory Weldon | ECON | [address] | | | | | [place] [address] | | + + + + + | Thania Mallory | ECON | [address] | | | | | [place] [address] | | + + + + + | Deidra Weldon | ECON | [address] | | | | | [place] | | | | | [address] | | + + + + + Care Team Providers + +------+ + | Care National Service Officer Name | Role | Phone | + +------+ + | No Pcp Per Patient | PCP | Unavailable | + +------+ + Reason for Visit + +--------+ + | Reason | Onset | Comments | | | Date | | + +--------+ + | [facility] Listing | 02/04/ | | | | 2013 | | + +--------+ + Encounter Details +--------+ + + + + | Date | Type | Department | Care Team | Description | +--------+ + + + + | 02/04/ | Telephone | Clinical | Kelsi Martinez, | [facility] Listing | | 2013 | | Transplant Services | RN [address] | | | | | [address] | [facility] | | | | | [address] [place], | [place], [place] | | | | | [place] [address] | [address] | | | | | [phone] | | | +--------+ + + + [...] this encounter Miscellaneous Notes Telephone Encounter - Karina Scott - 02/10/2014 12:48 PM PSTReviewed with patient the yury deshpande: Transplant book coming by mail. Complete forms in transplant packet and return INOCENCIO. Review education materials every month or so while you wait. Be reachable: have your beeper or cell phone with you and on at all times. Let the office know if you are going out of town, Notify of changes in address, phone number, or dialysis schedule. Stay healthy: Take your medicines, follow your diet and do your dialysis. If you become ill or are admitted to the hospital or if your doctor puts you on antibiotics, you must call [facility] transplant office and let us know about it (do not assume your doctor or dialysis unit has done this!). You will need to send a new PRA to us after each illness/infection. Send a blood sample (PRA) to [facility] every 28 days; if your sample is outdated, you can miss o ut on a kidney. It is your responsibility to keep your own calendar and make certain that [facility] dialysis unit or lab draws this sample on time. If you need a blood transfusion, remind the ordering facility that you are on the transplan t waiting list and they need to use a special white blood cell filter. Stay insured: if your insurance changes, you must call the transplant office with the [facility] ed information. Please check in with your Wait List Coordinator every 9-12 months. Your Coordinator may re commend you call more frequently, depending on how long you have been on the list. Remember , you can call at any time for questions and/or concerns. Reviewed plan for travel/support at the time of transplant. Reviewed current address, phone #'s, dialysis schedule, vaudeville actor, and insurance and req uested they inform us of any changes. elephone Encounter - ArKelsi koo RN - 02/04/2014 9:35 AM PSTReceived phone call from pt stating that pt's pot ential donor was not accepted and pt has no other potential donors over the age of 21 yrs. Pt would like to be listed for donor transplant. Kidney Transplant Listing 1. RN reviewed the following: a. Does patient have 2 ABO s? Yes- one drawn at [facility] and one drawn in [place] with result s canned into Epic b. If patient is on dialysis, do we have Medicare 2728 form showing chronic dialysis start date? Yes, scanned into [facility] on 03/16/2012 c. Does [place] organ diagnosis match Medicare 2728? Yes. If not, make sure Medicare 2728 diagnosis is denoted on problem list. d. If patient is predialysis, do we have recent labs with MDRD6 calculation form? N/A e. Are signed Informed Consent and LIT Consent forms received and scanned? Yes, scanned in to [employer] on 12/19/2012 f. Are the pharmacy, social work (within 1 year), and dietary notes documented? No, pt's s ocial work is being updated this week g. Patient last attended Patient Education Class on 12/19/2012. Reviewed with patient any content changes made since that class per the Patient Education Class Log of Changes posted on the X drive. 2. Patient denies cold or flu symptoms, recent trips to ED or MD office for issues, trauma , recent surgeries, current antibiotics, or transfusions. Reviewed with patient that she is ABO: O and our average waiting time is 3-4 years, although may be shorter d/t having pediat braulio status. Discussed with patient her cPRA result, which is 0%. 3. The patient is CMV positive. CMV neg donor required? No. The patient is EBV and HSV positive 4. Patient does not meet criteria for en bloc donors due to pediatric recipient status and protocol does not accept these donors. 5. Did not review expanded criteria donor (NETWORK PROFESSIONAL) with patient due to pediatric recipient sta tus and protocol does not accept these donors. 6. PHS Increased Risk donor option was not reviewed with patientdue to pediatric recipient status and protocol does not accept these donors. 7. Discussed with patient that his update testing will be scheduled every two years. Her ne xt update is due 2015. Informed patient that testing will need to be done at [facility]. 8. Reviewed support plan with patient. 9. Reviewed with patient the steps to listing: Insurance authorization, UNOS paperwork, and new PRA sample. Reviewed with patient that [facility] will call with additional listing informatio n. Patient needs to have PRA drawn and will do that as soon as she receives mailers. Reviewe d with patient that PRA needs to be drawn every 28 days. A. LIT mailers needed? Yes B. PRA needed? Yes documented in this e ncounter Plan of Treatment +--------+ + + + + | Date | Type | Specialty | Care Team | Description | +--------+ + + + + | 05/04/ | Hospital | Adult Acute Care | El Starr MD | | | 2022 | Encounter | | [address] | | | | | | [place], [place] | | | | | | [address] | | | | | | [phone] | | | | | | | | +--------+ + + + + documented as of this encounter Visit Diagnoses Not on filedocumented in this encounter"
--- OUTSIDE RECORDS SUMMARY | 2019-12-25 21:26 | XMS | Encounter Summary ---
Demographics + + + | Address | [address] | | | [place] [address] | + + + | Home Phone [...] + + + | Author | [facility] | + + + | Organization | [facility] | + + + | Address | Unknown | + + + | Phone | Unavailable | + + + Support + + + + + | Name | Relationship | Address | Phone | + + + + + | Cory Weldon | ECON | [address] | | | | | [place] [address] | | + + + + + | Thania Mallory | ECON | [address] | | | | | [place] [address] | | + + + + + | Deidra Weldon | ECON | [address] | | | | | [place] | | | | | [address] | | + + + + + Care Team Providers + +------+ + | Care Sports Physical Therapist Name | Role | Phone | + +------+ + | No Pcp Per Patient | PCP | Unavailable | + +------+ + Reason for Visit +--------+--------+ + | Reason | Onset | Comments | | | Date | | +--------+--------+ + | Other | 10/16/ | Transplant recommendations | | | 2013 | | +--------+--------+ + Encounter Details +--------+ + + + + | Date | Type | Department | Care Team | Description | +--------+ + + + + | 10/16/ | Telephone | Clinical | Kelsi Martinez, | Other (Transplant | | 2013 | | Transplant Services | RN [address] | recommendations) | | | | [address] | [facility] | | | | | [place], | [place], [place] | | | | | [place] [address] | [address] | | | | | [phone] | | | +--------+ + + + [...] Telephone Encounter - Kelsi Martinez RN - 10/16/2013 11:01 AM PDTReceived phone call fro m pt stating that she had been told by the donor coordinator that she needed to contact this office. Explained to pt that she had been cleared to proceed with transplant and the recom mendations that needed to be completed prior to transplant. Also, explained that I had spok en with her stepmother about this and mailed a letter to the family. Discussed with pt that she needs to get a varicella vaccine and since it is a live vaccine that she would need to wait six months after that to be transplanted. Pt agreed with the plan and will discuss wit h her parents about proceeding with the recommendations and then the transplant.Electronical ly signed by Kelsi Martinez RN at 10/16/2013 11:19 AM PDTdocumented in this encounter Plan of Treatment +--------+ + + + + | Date | Type | Specialty | Care Team | Description | +--------+ + + + + | 05/04/ | Hospital | Adult Acute Care | El Starr MD | | | 2022 | Encounter | | [address] | | | | | | [place], [place] | | | | | | [address] | | | | | | [phone] | | | | | | | | +--------+ + + + + documented as of this encounter Visit Diagnoses Not on filedocumented in this encounter"
--- OUTSIDE RECORDS SUMMARY | 2019-12-25 21:26 | XMS | Encounter Summary ---
Demographics + + + | Address | [address] | | | [place] [address] | + + + | Home Phone | | + + + | Preferred Language | Unknown | + + + | Marital Status | Single | + + + | Orthodoxy Affiliation | Unknown | + + + | Race | White | + + + | Ethnic Group | Not or | + + + Author + + + | Author | [facility] | + + + | Organization | [facility] | + + + | Address | Unknown | + + + | Phone | Unavailable | + + + Support + + + + + | Name | Relationship | Address | Phone | + + + + + | Cory Weldon | ECON | [address] | | | | | [place] [address] | | + + + + + | Thania Mallory | ECON | [address] | | | | | [place] [address] | | + + + + + | Deidra Weldon | ECON | [address] | | | | | [place] | | | | | [address] | | + + + + + Care Team Providers + +------+ + | Care Clinical Informatics Spec Name | Role | Phone | + +------+ + | No Pcp Per Patient | PCP | Unavailable | + +------+ + Reason for Visit + + + | Reason | Comments | + + + | Committee Review | | | Decision | | + + + Encounter Details +--------+ + + + + | Date | Type | Department | Care Team | Description | +--------+ + + + + | 02/14/ | Documentati | Clinical | Kelsi Martinez, | Committee Review | | 2013 | on | Transplant Services | RN [address] | Decision | | | | [address] | [facility] | | | | | [address] [place], | [place], [place] | | | | | [place] [address] | [address] | | | | | [phone] | | | +--------+ + + + [...] this encounter Miscellaneous Notes Telephone Encounter - El Starr MD - 02/14/2014 8:37 AM [facility] Transplant Committee Review Decision and Recommendations Committee Date: 02/14/2014 Patient Name: Dara Weldon : 1995 Age: 17 y.o. Discussion Type: Present Chairing MD: El Starr MD Disciplines Present: Surgery Attending, Hearing Health Technician, Pediatric Nephrologists, So cial Worker and Dietitian Transplant Nurse: Kelsi Martinez Referring Physician for Transplant: [facility]: [facility] Hemodialysis Decision: APPROVED Providers Intent: A2 into B: No CLINICAL DATA MANAGEMENT DIRECTOR: No En Bloc: No CMV Negative Donor Only: No CDC High Risk: No High Risk Recipient: Yes Reason: Teenager, overweight [place] Kidney Disease: Henoch-Schonlein Purpura Living Donor Implications: currently working up living donor Blood Type: O PRA: Class I, Class II and cPRA all 0% CMV: Positive EBV: Positive Risks: 1. 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 2. Obesity + FH DM (weight loss, advised that she is at risk to develop post-transplant DM) . 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 Waiting List Comments: 1. Donor must be <50 yrs old, no DCD or CLINICAL DATA MANAGEMENT DIRECTOR. 2. Only 1 DR mismatch 3. Alemtuzumab induction Recommendations to be completed but not required prior to listing: No further weight gain elephone Encounter - Kelsi Caraballo RN - 02/14/2014 7:17 AM [facility] Transplant Committee Review Decision and R ecommendations Committee Date: 02/14/2014 Patient Name: Dara Weldon : 1995 Age: 17 y.o. Discussion Type: Present Chairing MD: El Starr MD Disciplines Present: Surgery Attending, Hearing Health Technician, Pediatric Nephrologists, So denisel Worker and Jakeitian Transplant Nurse: Kelsi Martinez Referring Physician for Transplant: [facility]: [facility] Decision: APPROVED Providers Intent: A2 into B: No CLINICAL DATA MANAGEMENT DIRECTOR: No En Bloc: No CMV Negative Donor Only: No [facility] High Risk: No High Risk Recipient: Yes Reason: Teenager, overweight [place] Kidney Disease: Henoch-Schonlein Purpura Living Donor Implications: currently working up living donor Blood Type: O PRA: Class I, Class II and cPRA all 0% CMV: Positive EBV: Positive Risks: 1. 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 2. Obesity + FH DM (weight loss, advised that she is at risk to develop post-transplant DM) . 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 Waiting List Comments: 1. Donor must be <50 yrs old, no DCD or CLINICAL DATA MANAGEMENT DIRECTOR. 2. Only 1 DR mismatch 3. Alemtuzumab induction Recommendations to be completed but not required prior to listing: No further weight gain documented in this e ncounter Plan of Treatment +--------+ + + + + | Date | Type | Specialty | Care Team | Description | +--------+ + + + + | 05/04/ | Hospital | Adult Acute Care | El Starr MD | | | 2022 | Encounter | | [address] | | | | | | [place], [place] | | | | | | [address] | | | | | | [phone] | | | | | | | | +--------+ + + + + documented as of this encounter Visit Diagnoses Not on filedocumented in this encounter"
--- OUTSIDE RECORDS SUMMARY | 2019-12-25 21:26 | XMS | Encounter Summary ---
Demographics + + + | Address | [address] | | | [place] [address] | + + + | Home Phone [...] | | | | | [place] [address] | | + + + + + | Thania Mallory | ECON | [address] | | | | | [place] [address] | | + + + + + | Deidra Weldon | ECON | [address] | | | | | [place] | | | | | [address] | | + + + + + Care Team Providers + +------+ + | Care Paving Rammer Name | Role | Phone | + +------+ + | No Pcp Per Patient | PCP | Unavailable | + +------+ + Reason for Visit + + + | Reason | Comments | + + + | Lab Results | 2nd ABO | + + + Encounter Details +--------+ + + + + | Date | Type | Department | Care Team | Description | +--------+ + + + + | 12/25/ | Documentati | Clinical | Kelsi Martinez, | Lab Results (2nd | | 2013 | on | Transplant Services | RN [address] | ABO) | | | | [address] | [facility] | | | | | [address] [place], | [place], [place] | | | | | [place] [address] | [address] | | | | | [phone] | | | +--------+ + + + [...] [address] | | | | | | [place], [place] | | | | | | [address] | | | | | | [phone] | | | | | | | | +--------+ + + + + documented as of this encounter Procedures + +--------+ + + + | Procedure Name | Priori | Date/Time | Associated Diagnosis | Comments | | | ty | | | | + +--------+ + + + | ABO & RH TYPE | Routin | 12/24/2013 | | Results for this | | | e | 4:40 PM | | procedure are in the | | | | PDT | | results section. | + +--------+ + + + documented in this encounter Results ABO & RH TYPE (12/24/2013 4:40 PM PDT) + + + + + + | Component | Value | Ref Range | Performed | Pathologist | | | | | At | Signature | + + + + + + | ABO GROUP | O | | [facility] | | | | | | LAB - | | | | | | [place] | | + + + + + + | RH TYPE | Negative | | [facility] | | | | | | LAB - | | | | | | [place] | | + + + + + + | ANTIBODY | Negative | | [facility] | | | SCREEN | | | LAB - | | | | | | [place] | | + + + + + + | VARICELLA | Positive | | [facility] | | | ZOSTER IGG | | | LAB - | | | | | | [place] | | + + + + + + + + | Specimen | + + | Blood - Blood | + + + + + + + | Performing | Address | City/State/Zipcode | Phone Number | | Organization | | | | + + + + + | [facility] - | [address] | [place], [place] | [phone] | | [place] | | | | + + + + + documented in this encounter Visit Diagnoses Not on filedocumented in this encounter"
--- OUTSIDE RECORDS SUMMARY | 2019-12-25 21:26 | XMS | Encounter Summary ---
Demographics + + + | Address | [address] | | | [place] [address] | + + + | Home Phone | | + + + | Preferred Language | Unknown | + + + | Marital Status | Single | + + + | Christianity Affiliation | Unknown | + + + [...] | | | | | [place] [address] | | + + + + + | Thania Mallory | ECON | [address] | | | | | [place] [address] | | + + + + + | Deidra Weldon | ECON | [address] | | | | | [place] | | | | | [address] | | + + + + + Care Team Providers + +------+ + | Care Citrix Consultant Name | Role | Phone | + +------+ + | No Pcp Per Patient | PCP | Unavailable | + +------+ + Reason for Visit + + + | Reason | Comments | + + + | KP Waitlist | Add to list | + + + Encounter Details +--------+ + + + + | Date | Type | Department | Care Team | Description | +--------+ + + + + | 03/05/ | Documentati | Clinical | Kelsi Martinez, | [facility] Waitlist (Add to | | 2013 | on | Transplant Services | RN [address] | list) | | | | [address] [place] | [facility] | | | | | [address] [facility], | [place], [place] | | | | | [place] [address] | [address] | | | | | [phone] | | | +--------+ + + + [...] this encounter Miscellaneous Notes Telephone Encounter - Gretchen Banuelos - 03/05/2014 4:30 PM PSTPatient added as Active on 03/05 to Waiting List and in UNET. elephone Encounter - Michelle Kelsi, RN - 03/05/2014 9:43 AM PSTReceived PRA and ins urance authorization. Pt is ready to be added to the donor waitlist. Kidney Transplant Listing 1. RN reviewed the following: a. Does patient have 2 ABO s? Yes. b. If patient is on dialysis, do we have Medicare 2728 form showing chronic dialysis start date? Yes, Medicare 2728 sent to scanning on 03/16/2012 c. Does [place] organ diagnosis match Medicare 2728? Yes. If not, make sure Medicare 2728 diagnosis is denoted on problem list. d. If patient is predialysis, do we have recent labs with MDRD6 calculation form? N/A e. Are signed Informed Consent and LIT Consent forms received and scanned? Yes, sent to [employer] on 12/20/2012. f. Are the pharmacy, social work (within 1 year), and dietary notes documented? Yes. g. Patient last attended Patient Education Class [...] and our average waiting time is 3-4 years. Discussed with patient her cPRA result, w hich is 0%. 3. The patient is CMV positive. CMV neg donor required? No. The patient is EBV positive. 4. Patient does not meet criteria for en bloc donors due to pediatric recipient status and protocol does not accept these donors. 5. Did not review expanded criteria donor (ICE CREAM VAN VENDOR) with patient due to pediatric recipient sta tus and protocol does not accept these donors. 6. PHS Increased Risk donor option was not reviewed with patientdue to pediatric recipient status and protocol does not accept these donors. 7. Discussed with patient that her update testing will be scheduled every two years. Her ne xt update is due 2014. Informed patient that testing may need to be done at [facility]. 8. Reviewed support plan with patient. 9. Reviewed with patient the steps to listing: Insurance authorization, UNOS paperwork, and new PRA sample. Reviewed with patient that [facility] [place] call with additional listing informatio n. Patient needs to have PRA drawn and will do that as soon as she receives mailers. Reviewe d with patient that PRA needs to be drawn every 28 days. A. LIT mailers needed? Yes B. PRA needed? No documented in this e ncounter Plan of Treatment +--------+ + + + + | Date | Type | Specialty | Care Team | Description | +--------+ + + + + | 05/04/ | Hospital | Adult Acute Care | El Starr MD | | | 2022 | Encounter | | [address] | | | | | | [place], [place] | | | | | | [address] | | | | | | [phone] | | | | | | | | +--------+ + + + + documented as of this encounter Visit Diagnoses Not on filedocumented in this encounter"
--- OUTSIDE RECORDS SUMMARY | 2019-12-25 21:26 | XMS | Encounter Summary ---
Demographics + + + | Address | [address] | | | [place] [address] | + + + | Home Phone | | + + + | Preferred Language | Unknown | + + + | Marital Status | Single | + + + | Church Affiliation | Unknown | + + + [...] | | | | | [place] [address] | | + + + + + | Thania Mallory | ECON | [address] | | | | | [place] [address] | | + + + + + | Deidra Weldon | ECON | [address] | | | | | [place] | | | | | [address] | | + + + + + Care Team Providers + +------+ + | Care City Assessor Name | Role | Phone | + [...] | +--------+ + + + + | 11/22/ | Documentati | Clinical | Kelsi Martinez, | Transplant Form | | 2013 | on | Transplant Services | RN [address] | Update | | | | [address] [place] | [facility] | | | | | [address] [facility], | [place], [place] | | | | | [place] [address] | [address] | | | | | [phone] | | | +--------+ + + + [...] [address] | | | | | | [place], [place] | | | | | | [address] | | | | | | [phone] | | | | | | | | +--------+ + + + + documented as of this encounter Visit Diagnoses Not on filedocumented in this encounter"
--- OUTSIDE RECORDS SUMMARY | 2019-12-25 21:26 | XMS | Encounter Summary ---
Demographics + + + | Address | [address] | | | [place] [address] | + + + | Home Phone | | + + + | Preferred Language | Unknown | + + + | Marital Status | Single | + + + | Jewish Affiliation | Unknown | + + + [...] | | | | | [place] [address] | | + + + + + | Thania Mallory | ECON | [address] | | | | | [place] [address] | | + + + + + | Deidra Weldon | ECON | [address] | | | | | [place] | | | | | [address] | | + + + + + Care Team Providers + +------+ + | Care Leaf Conditioner Name | Role | Phone | + +------+ + | No Pcp Per Patient | PCP | Unavailable | + +------+ + Reason for Visit + +--------+ + | Reason | Onset | Comments | | | Date | | + +--------+ + | Committee Review | 02/14/ | | | Recommendations | 2014 | | + +--------+ + Encounter Details +--------+ + + + + | Date | Type | Department | Care Team | Description | +--------+ + + + + | 02/14/ | Telephone | Pediatric | Sudhakar Joy | Committee Review | | 2013 | | Nephrology at | MD Emanuel [address] | Recommendations | | | | Alexander | [address] | | | | | [facility] | [place], [place] | | | | | [address] | [address] | | | | | Alexander | [phone] | | | | | [facility], | | | | | | [address] [place] [address] | | | | | | [place], [place] | | | | | | [address] | | | | | | [phone] | | | +--------+ + + + [...] Telephone Encounter - Kelsi Martinez RN - 02/14/2014 1:56 PM PSTContacted stepmother of pt and notified her that the team felt comfortable with listing pt for renal transplant. P t will be ready to list as soon as PRA arrives and new insurance authorization is received ( pt got new insurance so new authorization needs to be in place). Also, reminded them that p t needs to have PRA drawn every 28 days.Electronically signed by Kelsi Martinez RN at 02/03 1:58 PM PSTdocumented in this encounter Plan of Treatment +--------+ + + + + | Date | Type | Specialty | Care Team | Description | +--------+ + + + + | 05/04/ | Hospital | Adult Acute Care | El Starr MD | | | 2022 | Encounter | | [address] | | | | | | [place], [place] | | | | | | [address] | | | | | | [phone] | | | | | | | | +--------+ + + + + documented as of this encounter Visit Diagnoses Not on filedocumented in this encounter"
--- OUTSIDE RECORDS SUMMARY | 2019-12-25 21:26 | XMS | Encounter Summary ---
Demographics + + + | Address | [address] | | | [place] [address] | + + + | Home Phone | | + + + | Preferred Language | Unknown | + + + | Marital Status | Single | + + + | Alevism Affiliation | Unknown | + + + | Race | White | + + + | Ethnic Group | Not or | + + + Author + + + | Author | [facility] | + + + | Organization | [facility] | + + + | Address | Unknown | + + + | Phone | Unavailable | + + + Support + + + + + | Name | Relationship | Address | Phone | + + + + + | Cory Weldon | ECON | [address] | | | | | [place] [address] | | + + + + + | Thania Mallory | ECON | [address] | | | | | [place] [address] | | + + + + + | Deidra Weldon | ECON | [address] | | | | | [place] | | | | | [address] | | + + + + + Care Team Providers + +------+ + | Care Para Educator Name | Role | Phone | + [...] + + + + | 02/18/ | Abstract | Clinical | Elina Ace, | Transplant Form | | 2013 | | Transplant Services | PRODUCT DESIGN SPECIALIST [place], [place] | Update | | | | [address] | [address] | | | | | [address] [place], | | | | | | [place] [address] | | | | | | [phone] | | | +--------+ + + + [...] Hospital | Adult Acute Care | El Strar MD | | | 2022 | Encounter | | [address] | | | | | | [place], [place] | | | | | | [address] | | | | | | [phone] | | | | | | | | +--------+ + + + + documented as of this encounter Visit Diagnoses Not on filedocumented in this encounter"
--- OUTSIDE RECORDS SUMMARY | 2019-12-25 21:26 | XMS | Encounter Summary ---
Demographics + + + | Address | [address] | | | [place] [address] | + + + | Home Phone [...] Author + + + | Author | [facility] | + + + | Organization | [facility] | + + + | Address | Unknown | + + + | Phone | Unavailable | + + + Support + + + + + | Name | Relationship | Address | Phone | + + + + + | Cory Weldon | ECON | [address] | | | | | [place] [address] | | + + + + + | Thania Mallory | ECON | [address] | | | | | [place] [address] | | + + + + + | Deidra Weldon | ECON | [address] | | | | | [place] | | | | | [address] | | + + + + + Care Team Providers + +------+ + | Care Rim Fire Charger Operator Name | Role | Phone | + +------+ + | No Pcp Per Patient | PCP | Unavailable | + +------+ + Reason for Visit + +--------+ + | Reason | Onset | Comments | | | Date | | + +--------+ + | Transplant Form | 10/14/ | | | Update | 2013 | | + +--------+ + Encounter Details +--------+ + + + + | Date | Type | Department | Care Team | Description | +--------+ + + + + | 10/14/ | Telephone | Pediatric | Kelsi Martinez, | Transplant Form | | 2013 | | Nephrology at | RN [address] | Update | | | | Alexander | [facility] | | | | | [facility] | [place], [place] | | | | | [address] | [address] | | | | | [place]aned[place] | | | | | | [facility], | | | | | | [address] [place] [address] | | | | | | [place], [place] | | | | | | [address] | | | | | | [phone] | | | +--------+ + + + [...] Telephone Encounter - Kelsi Martinez RN - 10/14/2013 1:[address] Fisher ins if pt is ready to proceed with transplant. Pt has had much improved compliance since ch anging to hemodialysis and labs are significantly improved. Dr. Joy feels pt may procee d with transplant recommendations and work-up potential donors. Notified donor coordinator of approval to proceed with transplant. Contacted pt's stepmoth er and let her know that pt may proceed with transplant. Letter sent to family of things th at pt needs to complete prior to transplant. documented in this encounter Plan of Treatment +--------+ + + + + | Date | Type | Specialty | Care Team | Description | +--------+ + + + + | 05/04/ | Hospital | Adult Acute Care | El Starr MD | | | 2022 | Encounter | | [address] | | | | | | [place], [place] | | | | | | [address] | | | | | | [phone] | | | | | | | | +--------+ + + + + documented as of this encounter Visit Diagnoses Not on filedocumented in this encounter"
--- OUTSIDE RECORDS SUMMARY | 2019-12-25 21:26 | XMS | Encounter Summary ---
Demographics + + + | Address | [address] | | | [place] [address] | + + + | Home Phone [...] Author + + + | Author | [facility] | + + + | Organization | [facility] | + + + | Address | Unknown | + + + | Phone | Unavailable | + + + Support + + + + + | Name | Relationship | Address | Phone | + + + + + | Cory Weldon | ECON | [address] | | | | | [place] [address] | | + + + + + | Thania Mallory | ECON | [address] | | | | | [place] [address] | | + + + + + | Deidra Weldon | ECON | [address] | | | | | [place] | | | | | [address] | | + + + + + Care Team Providers + +------+ + | Care Carton Forming Machine Operator Name | Role | Phone | + +------+ + | No Pcp Per Patient | PCP | Unavailable | + +------+ + Encounter Details +--------+ + + + + | Date | Type | Department | Care Team | Description | +--------+ + + + + | 12/12/ | Abstract | Clinical | Sudhakar Joy | | | 2013 | | Transplant Services | MD Emanuel [address] | | | | | [address] | [address] | | | | | [address] [place], | [place], [place] | | | | | [place] [address] | [address] | | | | | [phone] | [phone] | | | | | | | [...] Denise | | | | | | [place] | | | | | | [address] | | | | | | [phone] | | | | | | | | +--------+ + + + + documented as of this encounter Visit Diagnoses Not on filedocumented in this encounter"
--- OUTSIDE RECORDS SUMMARY | 2019-12-25 21:26 | XMS | Encounter Summary ---
Demographics + + + | Address | [address] | | | [place] [address] | + + + | Home Phone [...] | | | | | [place] [address] | | + + + + + | Thania Mallory | ECON | [address] | | | | | [place] [address] | | + + + + + | Deidra Weldon | ECON | [address] | | | | | [place] | | | | | [address] | | + + + + + Care Team Providers + +------+ + | Care Medical Assistant Ob Gyn Name | Role | Phone | + +------+ + | No Pcp Per Patient | PCP | Unavailable | + +------+ + Encounter Details +--------+ + + + + | Date | Type | Department | Care Team | Description | +--------+ + + + + | 02/14/ | Orders Only | Clinical | Kelsi Martinez, | | | 2013 | | Transplant Services | RN [address] | | | | | [address] [facility] | [facility] | | | | | [address] [facility], | [place], [place] | | | | | [place] [address] | [address] | | | | | [phone] | | | +--------+ + + + [...] Denise | | | | | | [place] | | | | | | [address] | | | | | | [phone] | | | | | | | | +--------+ + + + + documented as of this encounter Visit Diagnoses Not on filedocumented in this encounter"
--- OUTSIDE RECORDS SUMMARY | 2019-12-25 21:26 | XMS | Encounter Summary ---
Demographics + + + | Address | [address] | | | [place] [address] | + + + | Home Phone | | + + + | Preferred Language | Unknown | + + + | Marital Status | Single | + + + | Hoahaoism Affiliation | Unknown | + + + | Race | White | + + + | Ethnic Group | Not or | + + + Author + + + | Author | [facility] | + + + | Organization | [facility] | + + + | Address | Unknown | + + + | Phone | Unavailable | + + + Support + + + + + | Name | Relationship | Address | Phone | + + + + + | Cory Weldon | ECON | [address] | | | | | [place] [address] | | + + + + + | Thania Mallory | ECON | [address] | | | | | [place] [address] | | + + + + + | Deidra Weldon | ECON | [address] | | | | | [place] | | | | | [address] | | + + + + + Care Team Providers + +------+ + | Care Sulfuric Acid Plant Supervisor Name | Role | Phone | + +------+ + | No Pcp Per Patient | PCP | Unavailable | + +------+ + Reason for Visit + + + | Reason | Comments | + + + | Unos Listing | ABO VERIFICATION | + + + Encounter Details +--------+ + + + + | Date | Type | Department | Care Team | Description | +--------+ + + + + | 03/05/ | Documentati | Clinical | Kelsi Martinez, | Unos Listing (ABO | | 2014 | on | Transplant Services | RN [address] | VERIFICATION) | | | | [address] [place] | [facility] | | | | | [address] [place] [place], | [place], [place] | | | | | [place] [address] | [address] | | | | | [phone] | | | +--------+ + + + [...] Telephone Encounter - Gretchen Banuelos - 03/05/2014 4:29 PM PSTSecond ABO from [facility], dated 12/24/2013 was used for the verification by: Gretchen Banuelos elephone Encounter - Juan Gan - 03/05/2014 4: 25 PM PSTLIT ABO, dated 12/20/2012 was used for initial addition by: Juan Gan documented in this enco unter Plan of Treatment +--------+ + + + + | Date | Type | Specialty | Care Team | Description | +--------+ + + + + | 05/04/ | Hospital | Adult Acute Care | El Starr MD | | | 2022 | Encounter | | [address] | | | | | | [place], [place] | | | | | | [address] | | | | | | [phone] | | | | | | | | +--------+ + + + + documented as of this encounter Visit Diagnoses Not on filedocumented in this encounter"
--- OUTSIDE RECORDS SUMMARY | 2019-12-25 21:26 | XMS | Encounter Summary ---
Demographics + + + | Address | [address] | | | [place] [address] | + + + | Home Phone [...] | | | | | [place] [address] | | + + + + + | Thania Mallory | ECON | [address] | | | | | [place] [address] | | + + + + + | Deidra Weldon | ECON | [address] | | | | | [place] | | | | | [address] | | + + + + + Care Team Providers + +------+ + | Care Diffusion Furnace Operator Name | Role | Phone | + +------+ + | No Pcp Per Patient | PCP | Unavailable | + +------+ + Reason for Visit +--------+--------+ + | Reason | Onset | Comments | | | Date | | +--------+--------+ + | Other | 11/21/ | Immunizations | | | 2013 | | +--------+--------+ + Encounter Details +--------+ + + + + | Date | Type | Department | Care Team | Description | +--------+ + + + + | 11/21/ | Telephone | Clinical | Kelsi Martinez, | Other | | 2013 | | Transplant Services | RN [address] | (Immunizations) | | | | [address] | [facility] | | | | | [address] [place], | [place], [place] | | | | | [place] [address] | [address] | | | | | [phone] | | | +--------+ + + + [...] Telephone Encounter - Kelsi Martinez RN - 11/21/2013 3:56 PM PDTReceived phone call fro m pt stating that she received all her immunizations on 11/05/2013 (including varicella). S he still needs to complete her dental clearance and get her second ABO. Faxed message to RN in [place] requesting that type and screen be added to pt's next set of labs and that paper kings danielson is faxed to this office once that is resulted. documented in this encounter Plan of Treatment +--------+ + + + + | Date | Type | Specialty | Care Team | Description | +--------+ + + + + | 05/04/ | Hospital | Adult Acute Care | El Starr MD | | | 2022 | Encounter | | [address] | | | | | | [place], [place] | | | | | | [address] | | | | | | [phone] | | | | | | | | +--------+ + + + + documented as of this encounter Visit Diagnoses Not on filedocumented in this encounter"
--- OUTSIDE RECORDS SUMMARY | 2019-12-25 21:26 | XMS | Encounter Summary ---
Demographics + + + | Address | [address] | | | [place] [address] | + + + | Home Phone [...] | | | | | [place] [address] | | + + + + + | Thania Mallory | ECON | [address] | | | | | [place] [address] | | + + + + + | Deidra Weldon | ECON | [address] | | | | | [place] | | | | | [address] | | + + + + + Care Team Providers + +------+ + | Care Agribusiness Internship Name | Role | Phone | + [...] | +--------+ + + + + | 02/25/ | Abstract | Clinical | Jesus Edmond, | Transplant Form | | 2013 | | Transplant Services | [address] | Update | | | | [address] | [facility] | | | | | [address] [place], | [place], [place] | | | | | [place] [address] | [address] | | | | | [phone] | [phone] | | | | | | | [...] Denise | | | | | | [place] | | | | | | [address] | | | | | | [phone] | | | | | | | | +--------+ + + + + documented as of this encounter Visit Diagnoses Not on filedocumented in this encounter"
--- OUTSIDE RECORDS SUMMARY | 2019-12-25 21:27 | XMS | Encounter Summary ---
Demographics + + + | Address | [address] | | | [place] [address] | + + + | Home Phone [...] | | | | | [place] [address] | | + + + + + | Thania Mallory | ECON | [address] | | | | | [place] [address] | | + + + + + | Deidra Weldon | ECON | [address] | | | | | [place] | | | | | [address] | | + + + + + Care Team Providers + +------+ + | Care Low Heel Builder Name | Role | Phone | + +------+ + PCP | Unavailable | + +------+ + Encounter Details +--------+ + + + + | Date | Type | Department | Care Team | Description | +--------+ + + + + | 08/19/ | Abstract | NON-[facility] | Unknown . | | | 2013 | | Department | | | +--------+ + + + [...] Denise | | | | | | [place], [place] | | | | | | [address] | | | | | | [phone] | | | | | | | | +--------+ + + + + documented as of this encounter Visit Diagnoses Not on filedocumented in this encounter"
--- OUTSIDE RECORDS SUMMARY | 2019-12-25 21:27 | XMS | Encounter Summary ---
Demographics + + + | Address | [address] | | | [place] [address] | + + + | Home Phone | | + + + | Preferred Language | Unknown | + + + | Marital Status | Single | + + + | Methodist Affiliation | Unknown | + + + | Race | White | + + + | Ethnic Group | Not or | + + + Author + + + | Author | [facility] | + + + | Organization | [facility] | + + + | Address | Unknown | + + + | Phone | Unavailable | + + + Support + + + + + | Name | Relationship | Address | Phone | + + + + + | Cory Weldon | ECON | [address] | | | | | [place] [address] | | + + + + + | Thania Mallory | ECON | [address] | | | | | [place] [address] | | + + + + + | Deidra Weldon | ECON | [address] | | | | | [place] | | | | | [address] | | + + + + + Care Team Providers + +------+ + | Care Weeder Name | Role | Phone | + +------+ + | No Pcp Per Patient | PCP | Unavailable | + +------+ + Encounter Details +--------+ + + + + | Date | Type | Department | Care Team | Description | +--------+ + + + + | 10/14/ | Orders Only | Clinical | Kelsi Martinez, | | | 2013 | | Transplant Services | RN [address] | | | | | [address] [facility] | [facility] | | | | | [address] [facility], | [place], [place] | | | | | [place] [address] | [address] | | | | | [phone] | | | +--------+ + + + [...] Denise | | | | | | [place] | | | | | | [address] | | | | | | [phone] | | | | | | | | +--------+ + + + + documented as of this encounter Visit Diagnoses Not on filedocumented in this encounter"
--- OUTSIDE RECORDS SUMMARY | 2019-12-25 21:27 | XMS | Encounter Summary ---
Demographics + + + | Address | [address] | | | [place] [address] | + + + | Home Phone | | + + + | Preferred Language | Unknown | + + + | Marital Status | Single | + + + | Quaker Affiliation | Unknown | + + + [...] | | | | | [place] [address] | | + + + + + | Thania Mallory | ECON | [address] | | | | | [place] [address] | | + + + + + | Deidra Weldon | ECON | [address] | | | | | [place] | | | | | [address] | | + + + + + Care Team Providers + +------+ + | Care At Risk Specialist Name | Role | Phone | + +------+ + PCP | Unavailable | + +------+ + Reason for Visit +--------+--------+ + | Reason | Onset | Comments | | | Date | | +--------+--------+ + | Other | 02/21/ | Transplant Committee recommendations | | | 2012 | | +--------+--------+ + Encounter Details +--------+ + + + + | Date | Type | Department | Care Team | Description | +--------+ + + + + | 02/21/ | Telephone | Clinical | Kelsi Martinez, | Other (Transplant | | 2012 | | Transplant Services | RN [address] | Committee | | | | [address] | [facility] | recommendations) | | | | [address] [place], | [place], [place] | | | | | [place] [address] | [address] | | | | | [phone] | | | +--------+ + + + [...] Telephone Encounter - Kelsi Martinez RN - 02/21/2013 2:04 PM PSTContacted stepmother of pt with transplant conference recommendations. Explained to her that pt had been deferred for transplant d/t compliance concerns. Explained that pt had to have improved phosphorus f or three consecutive months, compliant with medications and dialysis. Stepmother agreed to the plan. Mailed a letter with list of things that needed to be completed prior to transpla nt that they could work on during the next three months. Second copy sent so that family co uldorothy give bio-mom a copy. documented in this encounter Plan of Treatment +--------+ + + + + | Date | Type | Specialty | Care Team | Description | +--------+ + + + + | 05/04/ | Hospital | Adult Acute Care | El Starr MD | | | 2022 | Encounter | | [address] | | | | | | [place], [place] | | | | | | [address] | | | | | | [phone] | | | | | | | | +--------+ + + + + documented as of this encounter Visit Diagnoses Not on filedocumented in this encounter"
--- OUTSIDE RECORDS SUMMARY | 2019-12-25 21:27 | XMS | Encounter Summary ---
Demographics + + + | Address | [address] | | | [place] [address] | + + + | Home Phone | | + + + | Preferred Language | Unknown | + + + | Marital Status | Single | + + + | Confucianist Affiliation | Unknown | + + + | Race | White | + + + | Ethnic Group | Not or | + + + Author + + + | Author | [facility] | + + + | Organization | [facility] | + + + | Address | Unknown | + + + | Phone | Unavailable | + + + Support + + + + + | Name | Relationship | Address | Phone | + + + + + | Cory Weldon | ECON | [address] | | | | | [place] [address] | | + + + + + | Thania Mallory | ECON | [address] | | | | | [place] [address] | | + + + + + | Deidra Weldon | ECON | [address] | | | | | [place] | | | | | [address] | | + + + + + Care Team Providers + +------+ + | Care Paint Roller Cover Machine Setter Name | Role | Phone | + +------+ + | No Pcp Per Patient | PCP | Unavailable | + +------+ + Reason for Visit + + + | Reason | Comments | + + + | Transplant Form | Preferred lab/Provider updated | | Update | | + + + Encounter Details +--------+ + + + + | Date | Type | Department | Care Team | Description | +--------+ + + + + | 09/01/ | Abstract | Clinical | Jesus Edmond, | Transplant Form | | 2013 | | Transplant Services | [address] | Update (Preferred | | | | [address] | [address] | lab/Provider | | | | [address] [place], | [place], [place] | updated) | | | | [place] [address] | [address] | | | | | [phone] | [phone] | | | | | | | [...] Denise | | | | | | [place], [place] | | | | | | [address] | | | | | | [phone] | | | | | | | | +--------+ + + + + documented as of this encounter Visit Diagnoses Not on filedocumented in this encounter"
--- OUTSIDE RECORDS SUMMARY | 2019-12-25 21:27 | XMS | Encounter Summary ---
Demographics + + + | Address | [address] | | | [place] [address] | + + + | Home Phone | | + + + | Preferred Language | Unknown | + + + | Marital Status | Single | + + + | Adventist Affiliation | Unknown | + + + | Race | White | + + + | Ethnic Group | Not or | + + + Author + + + | Author | [facility] | + + + | Organization | [facility] | + + + | Address | Unknown | + + + | Phone | Unavailable | + + + Support + + + + + | Name | Relationship | Address | Phone | + + + + + | Cory Weldon | ECON | [address] | | | | | [place] [address] | | + + + + + | Thania Mallory | ECON | [address] | | | | | [place] [address] | | + + + + + | Deidra Weldon | ECON | [address] | | | | | [place] | | | | | [address] | | + + + + + Care Team Providers + +------+ + | Care Fork Repairer Name | Role | Phone | + +------+ + PCP | Unavailable | + +------+ + Reason for Visit + + + | Reason | Comments | + + + | Transplant 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 | coffee plantation worker 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 | | Update | | + + + Encounter Details +--------+ + + + + | Date | Type | Department | Care Team | Description | +--------+ + + + + | 05/29/ | Abstract | Clinical | Jesus Edmond, | Transplant Form | | 2013 | | Transplant Services | [place] [address] | Update (Social | | | | [address] | [address] | worker dates | | | | [address] [place], | [place], [place] | updated) | | | | [place] [address] | [address] | | | | | [phone] | [phone] | | | | | | | [...] Denise | | | | | | [place], [place] | | | | | | [address] | | | | | | [phone] | | | | | | | | +--------+ + + + + documented as of this encounter Visit Diagnoses Not on filedocumented in this encounter"
--- OUTSIDE RECORDS SUMMARY | 2019-12-25 21:27 | XMS | Encounter Summary ---
Demographics + + + | Address | [address] | | | [place] [address] | + + + | Home Phone | | + + + | Preferred Language | Unknown | + + + | Marital Status | Single | + + + | Oriental Orthodox Affiliation | Unknown | + + + | Race | White | + + + | Ethnic Group | Not or | + + + Author + + + | Author | [facility] | + + + | Organization | [facility] | + + + | Address | Unknown | + + + | Phone | Unavailable | + + + Support + + + + + | Name | Relationship | Address | Phone | + + + + + | Cory Weldon | ECON | [address] | | | | | [place] [address] | | + + + + + | Thania Mallory | ECON | [address] | | | | | [place] [address] | | + + + + + | Deidra Weldon | ECON | [address] | | | | | [place] | | | | | [address] | | + + + + + Care Team Providers + +------+ + | Care Electronics Manufacturer Name | Role | Phone | + +------+ + PCP | Unavailable | + +------+ + Reason for Visit + + + | Reason | Comments | + + + | Social work | f/u on [place] SW issues with pt's dad | | consultation | | + + + Encounter Details +--------+ + + + + | Date | Type | Department | Care Team | Description | +--------+ + + + + | 01/24/ | Documentati | Clinical | Mariza Hsu | Social work | | 2012 | on | Transplant Services | [address] | consultation (f/u on | | | | [address] | [address] | [place] [address] issues with | | | | Caro [place], | [place], [place] | pt's dad) | | | | [place] [address] | [address] | | | | | [phone] | | | +--------+ + + + [...] this encounter Miscellaneous Notes Telephone Encounter - Shadi Mariza Brigitte - 01/24/2013 1:07 PM PSTCalled pt's father, Clayton , , per referral from KAVON as he had some questions for [place] re insurance optio ns and to follow-up on timing of pt's transplant, readiness for transplant, pt's compliance with medications and dad's donor set 2 testing, all conversations I previously had with the pt/family. Insurance: Per dad he will be able to add employer group based insurance for himself and h is starting Mar 2013 for $146 per mo in premium (an Bond plan) and would have option to add pt only for an additional $4 per mo - for a total cost of $150 for all three in . Leah was considering this option but is aware that pt has both secure Medicaid, based on gett ing full SSI, and Medicare based on ESRD. These together are relatively comprehensive cover age for all pt's post-tx care, meds and [place] Medicaid pays for Medicare premiums. Dad understa nds, however pt's case is somewhat unique in that the family chooses to have her dialysis un it be located in [facility], where her [place] Medicaid does not fully, completely cover all th e costs she has due to being out of state Medicaid and [place] clinic [place]. Leah states the family pays "$25 per day" for her dialysis and works with Gaby to pay other various uncovered items related to dialysis and clinic appts in [place]. Dad may be nefit from the $4 insurance plan for pt if indeed it reduces these expenses or he may want t o consider transferring her care to [place] dialysis unit if as dad states "there is no differen ce in distance from his home" between the two. Pt's Compliance/Readiness for Transplantation: Per leah it is accurate information that faby lakhani routinely "fights and argues" with parents regarding need to take her medications and m ay only take them consistently half the time. He does think she has improved and has respon ded to him getting further in his living donor evaluation process as "its becoming more of a reality to her." Dad says it is also true that pt does not "take any medications" while sp ending time with her bio mom as mom "doesn't want to argue with her" and so "let's her get a way with not doing it" to avoid confrontation. Dad confirms that mom regularly smokes marij uana, even around the patient and he does not see this behaviour changing. Dad and I had a urmila discussion on the great importance of us all (peds renal team, parent s involved) having more confidence that pt will be able to comply, even with less constant r esistance and arguing when reminded and ideally take personal ownership at her age, to be ab le to embrace the importance of taking her medications post-tx, especially immunosuppression medications after transplant. Told dad the best way to gain such confidence is in observing a period of time prior to transplant where pt can show and maintain taking medications. Gi ni her age and high risk behavior already noted, this is best way to give pt best chance to be successful. Dad will talk to Dr. Joy about his recommendations on above. Spoke with dad about how this may or may not impact his donor test set testing timing. Dad states he would have to have the testing done by 02-20-13 in order to give him 2 days after wards to work prior to company's scheduled "layoffs" 02-22-13 thru 03-07-13 or he "wouldn't g et a paycheck for two weeks." When I suggested dad/family consider post-poning his final te sting given pt's probable need to demonstrate better compliance, he was open anytime in late March 2013 forward, however I asked him to talk Dr. Joy today about these issues and the transplant plan. Dad agreed. Reassured dad my comments were out of wanting the best outcome for the pt post-tx and for h er to have skills and awareness and commitment in place to aligning with her health care tea m with cooperative behaviors, both at home and eventually on her own. Dad aware the first t ransplant the best chance for the longest success. This is an important goal for dad, and p juan, given his desire to donate a kidney. Dad was appreciative of this conversation. He said he will call me after discussing topics with Dr. Joy. Mariza Hsu, JACQUARD PLATE MAKER, [facility] Pediatric Renal Transplant Manager Linux pg. #[phone] documented in this en counter Plan of Treatment +--------+ + + + + | Date | Type | Specialty | Care Team | Description | +--------+ + + + + | 05/04/ | Hospital | Adult Acute Care | El Starr MD | | | 2022 | Encounter | | [address] | | | | | | [place], [place] | | | | | | [address] | | | | | | [phone] | | | | | | | | +--------+ + + + + documented as of this encounter Visit Diagnoses Not on filedocumented in this encounter
--- OUTSIDE RECORDS SUMMARY | 2019-12-25 21:27 | XMS | Encounter Summary ---
Demographics + + + | Address | [address] | | | [place] [address] | + + + | Home Phone [...] + + + | Author | [facility] | + + + | Organization | [facility] | + + + | Address | Unknown | + + + | Phone | Unavailable | + + + Support + + + + + | Name | Relationship | Address | Phone | + + + + + | Cory Weldon | ECON | [address] | | | | | [place] [address] | | + + + + + | Thania Mallory | ECON | [address] | | | | | [place] [address] | | + + + + + | Deidra Weldon | ECON | [address] | | | | | [place] | | | | | [address] | | + + + + + Care Team Providers + +------+ + | Care Technical Fellow Name | Role | Phone | + +------+ + PCP | Unavailable | + +------+ + Reason for Visit + +--------+ + | Reason | Onset | Comments | | | Date | | + +--------+ + | Peritonitis | 07/15/ | | | | 2013 | | + +--------+ + Encounter Details +--------+ + + + + | Date | Type | Department | Care Team | Description | +--------+ + + + + | 07/15/ | Telephone | Pediatric | Sudhakar Joy | Peritonitis | | 2013 | | Nephrology at | MD Emanuel [address] | | | | | [place] | [address] | | | | | [facility] | [place], [place] | | | | | [address] | [address] | | | | | [place] | [phone] | | | | | [facility], | | | | | | [address] [place] [address] | | | | | | [place], [place] | | | | | | [address] | | | | | | [phone] | | | +--------+ + + + [...] this encounter Miscellaneous Notes Telephone Encounter - Sudhakar Joy MD - 07/15/2013 6:45 PM PDTCall from dad. PD fl uid cloudy and yellowish. Some pain. No fever. Plan: Pd cell count and culture at [facility] in [place]. Vancomycin 2 gms IP and ceftazodime (tazocept) 2 gm IP tonight and every am till stopped: Heparin 500units/liter Hold keflex - continue po fluconazole. Jasiel Joy MD do cumented in this encounter Plan of Treatment +--------+ + + + + | Date | Type | Specialty | Care Team | Description | +--------+ + + + + | 05/04/ | Hospital | Adult Acute Care | El Starr MD | | | 2022 | Encounter | | [address] | | | | | | [place], [place] | | | | | | [address] | | | | | | [phone] | | | | | | | | +--------+ + + + + documented as of this encounter Visit Diagnoses Not on filedocumented in this encounter"
--- OUTSIDE RECORDS SUMMARY | 2019-12-25 21:27 | XMS | Encounter Summary ---
Demographics + + + | Address | [address] | | | [place] [address] | + + + | Home Phone [...] | | | | | [place] [address] | | + + + + + | Thania Mallory | ECON | [address] | | | | | [place] [address] | | + + + + + | Deidra Weldon | ECON | [address] | | | | | [place] | | | | | [address] | | + + + + + Care Team Providers + +------+ + | Care Supervisor [employer] Name | Role | Phone | + [...] + + + + | 02/18/ | Documentati | Clinical | Kelsi Martinez, | Committee Review | | 2012 | on | Transplant Services | RN [address] | Decision | | | | [address] | [facility] | | | | | [facility], | [place], [place] | | | | | [place] [address] | [address] | | | | | [phone] | | | +--------+ + + + [...] Telephone Encounter - El Starr MD - 02/19/2013 5:03 PM PSTI chaired the transplant apryl ection conference and agree with the documentation. El Starr MD Professor of Urology hvac services professional, Division of Abdominal Organ Transplantation elephone Encounter - [facility] Kelsi valdez RN - 02/19/2013 4:14 PM PSTDISREGARD PREVIOUS NOTE- ERRONEOUS ENCOUNTER Kidney Transplant Committee Review Decision and Recommendations Committee Date: 02/19/2013 Patient Name: Dara Weldon : 1995 Age: 17 y.o. Discussion Type: Present Chairing MD: El Starr MD Disciplines Present: Surgery Attending, Entry Level Mechanical Engineer, Pediatric Nephrologists, So cial Worker and Dietitian Transplant Nurse: Kelsi Martinez Referring Physician for Transplant: Sudhakar Joy Dialysis Center: [facility] PD Decision: DEFERRED - Compliance contract must be upheld for three months then pt may procee d with transplant- represent not required Providers Intent: A2 into B: No WEDDING PLANNER: No En Bloc: No CMV Negative Donor Only: No CDC High Risk: No High Risk Recipient: Yes Reason: Teenager, difficult family situation [place] Kidney Disease: Henoch-Schonlein Purpura Living Donor Implications: Potential living donor Blood Type: O PRA: Class I: 0% Class II: 0% cPRA: 0% CMV: Positive EBV: Positive Risks: 1. 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 Donor must be <50 yrs old, no DCD or WEDDING PLANNER. 2. Only 1 DR mismatch 3. Alemtuzimab induction 4. Viral prophylaxis Recommendations to be completed prior to listin. Evaluate potential donors 2. Needs second ABO 3. Phosphorus <5.5 - must complete three months of good levels prior to proceeding with li sting/transplant 4. Update immunizations: Gardisil, Menactra, Hep A, Flu shot, 5. Recheck varicella and if equivocal, start immunizations 6. No further weight gain 7. Dental elephone Encounter - Kelsi Martinez RN - 02/18/2013 2:57 PM [place] Transplant Committee Review Decision and Recommendations Committee Date: 02/19/2013 Patient Name: Dara Weldon : 1995 Age: 17 y.o. Discussion Type: Present Chairing MD: El Starr MD Disciplines Present: Surgery Attending, Entry Level Mechanical Engineer, Pediatric Nephrologists, So cial Worker and Dietitian Transplant Nurse: Kelsi Martinez Referring Physician for Transplant: Sudhakar Joy Dialysis Center: [facility] PD Decision: APPROVED Providers Intent: A2 into B: No WEDDING PLANNER: No En Bloc: No CMV Negative Donor Only: No [facility] High Risk: No High Risk Recipient: Yes Reason: Teenager, overweight Kake Kidney Disease: Henoch-Schonlein Purpura Living Donor Implications: currently working up living donor Blood Type: O PRA: Class I, Class II and cPRA all 0% CMV: Positive EBV: Positive Risks: 1. 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 2. Obesity + FH DM (weight loss, advised that she is at risk to develop post-trans[plant DM ). 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 Waiting List Comments: 1. Donor must be <50 yrs old, no DCD or WEDDING PLANNER. 2. Only 1 DR mismatch 3. Alemtuzumab induction Recommendations to be completed prior to listin. Needs second ABO 2. Phosphorus <5.5- must have three months of phosphorus trending to <5.5 3. Update immunizations: Gardisil, Menactra, Hep A, Flu shot, 4. Recheck varicella and if equivocal, start immunizations 5. No further weight gain documented in this e ncounter Plan of Treatment +--------+ + + + + | Date | Type | Specialty | Care Team | Description | +--------+ + + + + | 05/04/ | Hospital | Adult Acute Care | El Starr MD | | | 2022 | Encounter | | [address] | | | | | | [place] | | | | | | [address] | | | | | | [phone] | | | | | | | | +--------+ + + + + documented as of this encounter Visit Diagnoses Not on filedocumented in this encounter"
--- OUTSIDE RECORDS SUMMARY | 2019-12-25 21:27 | XMS | Encounter Summary ---
Demographics + + + | Address | [address] | | | [place] [address] | + + + | Home Phone | | + + + | Preferred Language | Unknown | + + + | Marital Status | Single | + + + | Moravian Affiliation | Unknown | + + + | Race | White | + + + | Ethnic Group | Not or | + + + Author + + + | Author | [facility] | + + + | Organization | [facility] | + + + | Address | Unknown | + + + | Phone | Unavailable | + + + Support + + + + + | Name | Relationship | Address | Phone | + + + + + | Cory Weldon | ECON | [address] | | | | | [place] [address] | | + + + + + | Thania Mallory | ECON | [address] | | | | | [place] [address] | | + + + + + | Deidra Weldon | ECON | [address] | | | | | [place] | | | | | [address] | | + + + + + Care Team Providers + +------+ + | Care Business Services Intern Name | Role | Phone | + +------+ + PCP | Unavailable | + +------+ + Reason for Visit + + + | Reason | Comments | + + + | Committee Review | | | Summary | | + + + Encounter Details +--------+ + + + + | Date | Type | Department | Care Team | Description | +--------+ + + + + | 02/18/ | Documentati | Clinical | Kelsi Martinez, | Committee Review | | 2012 | on | Transplant Services | RN [address] | Summary | | | | [address] | [facility] | | | | | [facility], | [place], [place] | | | | | [place] [address] | [address] | | | | | [phone] | | | +--------+ + + + [...] Telephone Encounter - Kelsi Martinez RN - 02/18/2013 2:56 PM PST Transplant Committee Review Summary Date: 02/18/2013 Patient Name: Dara Weldon : 1995 Age: 17 y.o. K/P Recipient Evaluation Workup: Patient/Parent attended education class: Yes Status Date Comments Health Maintenance Dental Complete 11/12/2012 Eye N/A Mammogram N/A Pap & Pelvic N/A Colonoscopy N/A Diagnostics Cardiac Stress Test N/A Cardiac Cath N/A Echo N/A EKG Complete 12/20/2012 BPM= 71 Normal ECG CXR Complete 12/20/2012 Normal chest Abd US Complete 12/20/2012 Liver, gallbladder and spleen WNL, pancreas not able to be seen (obscu red by gas). Common bile duct is 2.5 mm in diameter. Right kidney with volume of 79 mL and l eft has 84 mL. Bladder volume of 16 mL and no PVR. Peritoneal fluid likely related to dialysis. Otherwise unremarkable exam. Endoscopy Diagnostics (Peds Only) Echo, Peds Transthoracic Complete 12/20/2012 Technically difficult study , study quality is compromised d/t obesity. 1. Structurally normal heart. 2. No hypertrophy of the left ventricle. Bone Age Complete 12/20/2012 Observed bone age within one standard deviation of mean chrono logical age. Immunizations Hep B Follow-up 1995 Immune 12/20/2012 Dialysis unit restarting series d/t no immunity [birth year] Hep A Follow-up 12/20/2012 No immunity 12/20/2012- needs to start immunizations dT Complete 10/28/2008 10/28/2008 Tdap 10/08/2001 DTaP 07/22/1997 DTaP 1995 DTaP 07/11/1991 DTaP 1995 Tetramune DTP Pneumovax Complete 06/21/2012 06/21/2012 PPD Complete 12/20/2012 Quantiferon gold negative MMR Complete 10/08/2001 07/22/1997 Immunizations (Peds Only) Varicella Follow-up 12/20/2012 Equivocal 12/20/2012- will need second test and if remains e quivocal will need to get immunized. Had disease 01/07/2010 Melchor Cristinajuan Influenza Prevnar Other Pre-Dialysis Pts: MDRD Other 1 Other 2 Other 3 Other 4 Other 5 Consults: Surgery Complete 12/19/2012 Medicine Nutrition Complete 12/19/2012 Social Work Complete 12/19/2012 Pharmacy Complete 12/19/2012 Medication review was completed. The recipient appears to be a high risk but suitable candidate for transplantation relative to medication review. Weight lost high recommended. Other 1 Other 2 Other 3 documented in this e ncounter Plan of Treatment +--------+ + + + + | Date | Type | Specialty | Care Team | Description | +--------+ + + + + | 05/04/ | Hospital | Adult Acute Care | El Starr MD | | | 2022 | Encounter | | [address] | | | | | | [place], [place] | | | | | | [address] | | | | | | [phone] | | | | | | | | +--------+ + + + + documented as of this encounter Visit Diagnoses Not on filedocumented in this encounter"
--- OUTSIDE RECORDS SUMMARY | 2019-12-25 21:27 | XMS | Encounter Summary ---
Demographics + + + | Address | [address] | | | [place] [address] | + + + | Home Phone | | + + + | Preferred Language | Unknown | + + + | Marital Status | Single | + + + | Hindu Affiliation | Unknown | + + + [...] | | | | | [place] [address] | | + + + + + | Thania Mallory | ECON | [address] | | | | | [place] [address] | | + + + + + | Deidra Weldon | ECON | [address] | | | | | [place] | | | | | [address] | | + + + + + Care Team Providers + +------+ + | Care Sanitizer Name | Role | Phone | + [...] | +--------+ + + + + | 03/04/ | Documentati | Clinical | Kelsi Martinez, | Transplant Form | | 2012 | on | Transplant Services | RN [address] | Update | | | | [address] [facility] | [facility] | | | | | [facility], | [place], [place] | | | | | [place] [address] | [address] | | | | | [phone] | | | +--------+ + + + [...] [address] | | | | | | [place] | | | | | | [address] | | | | | | [phone] | | | | | | | | +--------+ + + + + documented as of this encounter Visit Diagnoses Not on filedocumented in this encounter"
--- OUTSIDE RECORDS SUMMARY | 2019-12-25 21:27 | XMS | Encounter Summary ---
Demographics + + + | Address | [address] | | | [place] [address] | + + + | Home Phone [...] | | | | | [place] [address] | | + + + + + | Thania Mallory | ECON | [address] | | | | | [place] [address] | | + + + + + | Deidra Weldon | ECON | [address] | | | | | [place] | | | | | [address] | | + + + + + Care Team Providers + +------+ + | Care Lean Manager Name | Role | Phone | + +------+ + PCP | Unavailable | + +------+ + Encounter Details +--------+ + + + + | Date | Type | Department | Care Team | Description | +--------+ + + + + | 03/22/ | Abstract | Pediatric | Sudhakar Joy | | | 2013 | | Nephrology at | MD [facility] [address] [facility] | | | | | [place] | [address] | | | | | [facility] | [place], [place] | | | | | [address] | [address] | | | | | [place] | [phone] | | | | | [facility], | | | | | | [address] [place] [address] | | | | | | [place], [place] | | | | | | [address] | | | | | | [phone] | | | +--------+ + + + [...] | | 2022 | Encounter | | [address] | | | | | | [place], [place] | | | | | | [address] | | | | | | [phone] | | | | | | | | +--------+ + + + + documented as of this encounter Procedures + +--------+ + + + | Procedure Name | Priori | Date/Time | Associated Diagnosis | Comments | | | ty | | | | + +--------+ + + + | PEDS NEPHROLOGY | Routin | 03/21/2013 | | Results for this | | EXTERNAL RESULTS | e | 4:09 PM | | procedure are in the | | PANEL | | PST | | results section. | + +--------+ + + + documented in this encounter Results [facility] EXTERNAL RESULTS PANEL (03/21/2013 4:09 PM PST) + + + + + + | Component | Value | Ref Range | Performed | Pathologist | | | | | At | Signature | + + + + + + | GLUCOSE, | 82 | 70 - 100 mg/dL | [facility] | | | PLASMA | | | LAB - | | | (LAB) | | | [place] | | + + + + + + | BUN, PLASMA | 44 (A) | 6 - 23 mg/dL | [facility] | | | (LAB) | | | LAB - | | | | | | [place] | | + + + + + + | CREATININE | 15.69 (A) | 0.50 - 1.50 | [facility] | | | PLASMA | | mg/dL | LAB - | | | (LAB) | | | [place] | | + + + + + + | SODIUM, | 137 | mmol/L | [facility] | | | PLASMA | | | LAB - | | | (LAB) | | | [place] | | + + + + + + | POTASSIUM, | 3.5 (A) | 3.6 - 5.1 | [facility] | | | PLASMA | | mmol/L | LAB - | | | (LAB) | | | [place] | | + + + + + + | CHLORIDE, | 97 | mmol/L | [facility] | | | PLASMA | | | LAB - | | | (LAB) | | | [place] | | + + + + + + | TOTAL CO2, | 26 | mmol/L | [facility] | | | PLASMA | | | LAB - | | | (LAB) | | | [place] | | + + + + + + | CALCIUM, | 8.7 | 8.4 - 10.2 | [facility] | | | PLASMA | | mg/dL | LAB - | | | (LAB) | | | [place] | | + + + + + + | PHOSPHORUS, | 7.4 (A) | 2.5 - 5.0 mg/dL | [facility] | | | PLASMA | | | LAB - | | | (LAB) | | | [place] | | + + + + + + | ALBUMIN, | 3.4 (A) | 3.5 - 5.0 g/dL | [facility] | | | PLASMA | | | LAB - | | | (LAB) | | | [place] | | + + + + + + | WHITE CELL | 6.4 | K/cu mm | [facility] | | | COUNT | | | LAB - | | | | | | [place] | | + + + + + + | HEMOGLOBIN | 7.3 (A) | 12 - 16 g/dL | [facility] | | | | | | LAB - | | | | | | [place] | | + + + + + + | HEMATOCRIT | 21.6 (A) | 35 - 45 % | [facility] | | | | | | LAB - | | | | | | [place] | | + + + + + + | RDW | 14.6 | % | [facility] | | | | | | LAB - | | | | | | [place] | | + + + + + + | PLATELET | 225 | K/cu mm | [facility] | | | COUNT | | | LAB - | | | | | | [place] | | + + + + + + | MCV | 102.6 (A) | 81 - 99 fL | [facility] | | | | | | LAB - | | | | | | [place] | | + + + + + + | NEUTROPHIL | 73.4 | % | [facility] | | | % | | | LAB - | | | | | | [place] | | + + + + + + | LYMPHOCYTE | 18.3 (A) | 24 - 44 % | [facility] | | | % | | | LAB - | | | | | | [place] | | + + + + + + | MONOCYTE % | 5.1 | % | [facility] | | | | | | LAB - | | | | | | [place] | | + + + + + + | EOS % | 2.7 | % | [facility] | | | | | | LAB - | | | | | | [place] | | + + + + + + | BASO % | 0.5 | % | [facility] | | | | | [...] | + + + + + | [facility] - | [address] | [place], [place] | [phone] | | [place] | | | | + + + + + documented in this encounter Visit Diagnoses Not on filedocumented in this encounter"
--- OUTSIDE RECORDS SUMMARY | 2019-12-25 21:27 | XMS | Encounter Summary ---
Demographics + + + | Address | [address] | | | [place] [address] | + + + | Home Phone | | + + + | Preferred Language | Unknown | + + + | Marital Status | Single | + + + | Episcopalian Affiliation | Unknown | + + + [...] | | | | | [place] [address] | | + + + + + | Thania Mallory | ECON | [address] | | | | | [place] [address] | | + + + + + | Deidra Weldon | ECON | [address] | | | | | [place] | | | | | [address] | | + + + + + Care Team Providers + +------+ + | Care Real Estate Office Supervisor Name | Role | Phone | [...] | +--------+ + + + + | 08/13/ | Documentati | Clinical | Kelsi Martinez, | Transplant Form | | 2013 | on | Transplant Services | RN [address] | Update | | | | [address] [facility] | [facility] | | | | | Park [facility], | [place], [place] | | | | | [place] [address] | [address] | | | | | [phone] | | | +--------+ + + + [...] Telephone Encounter - [place], Kelsi, RN - 08/13/2013 10:[address] Paolo segal pt status and she needs to remain deferred. She has transferred from PD to Hemodialysis and her labs are doing better. If they continue to improve and pt's compliance remains impr corey then Dr. Joy will consider proceeding with transplant in one month.Electronically s igned by Kelsi Martinez RN at 08/13/2013 10:47 AM PDTdocumented in this encounter Plan of Treatment +--------+ + + + + | Date | Type | Specialty | Care Team | Description | +--------+ + + + + | 05/04/ | Hospital | Adult Acute Care | El Starr MD | | | 2022 | Encounter | | [address] | | | | | | [place], [place] | | | | | | [address] | | | | | | [phone] | | | | | | | | +--------+ + + + + documented as of this encounter Visit Diagnoses Not on filedocumented in this encounter"
--- OUTSIDE RECORDS SUMMARY | 2019-12-25 21:27 | XMS | Encounter Summary ---
Demographics + + + | Address | [address] | | | [place] [address] | + + + | Home Phone [...] | | | | | [place] [address] | | + + + + + | Thania Mallory | ECON | [address] | | | | | [place] [address] | | + + + + + | Deidra Weldon | ECON | [address] | | | | | [place] | | | | | [address] | | + + + + + Care Team Providers + +------+ + | Care Grading Supervisor Name | Role | Phone | + +------+ + | No Pcp Per Patient | PCP | Unavailable | + +------+ + Encounter Details +--------+ + + + + | Date | Type | Department | Care Team | Description | +--------+ + + + + | 09/02/ | Documentati | Clinical | Asafparvizheike Kelsi, | | | 2013 | on | Transplant Services | RN [address] | | | | | [address] [place] | [facility] | | | | | Park [facility], | [place], [place] | | | | | [place] [address] | [address] | | | | | [phone] | | | +--------+ + + + [...] Denise | | | | | | [place] | | | | | | [address] | | | | | | [phone] | | | | | | | | +--------+ + + + + documented as of this encounter Visit Diagnoses Not on filedocumented in this encounter"
--- OUTSIDE RECORDS SUMMARY | 2019-12-25 21:27 | XMS | Encounter Summary ---
Demographics + + + | Address | [address] | | | [place] [address] | + + + | Home Phone [...] + + + | Author | [facility] | + + + | Organization | [facility] | + + + | Address | Unknown | + + + | Phone | Unavailable | + + + Support + + + + + | Name | Relationship | Address | Phone | + + + + + | Cory Weldon | ECON | [address] | | | | | [place] [address] | | + + + + + | Thania Mallory | ECON | [address] | | | | | [place] [address] | | + + + + + | Deidra Weldon | ECON | [address] | | | | | [place] | | | | | [address] | | + + + + + Care Team Providers + +------+ + | Care Processing Clerk Name | Role | Phone | + +------+ + PCP | Unavailable | + +------+ + Encounter Details +--------+ + + + + | Date | Type | Department | Care Team | Description | +--------+ + + + + | 04/09/ | Abstract | Pediatric | Sudhakar Joy | | | 2013 | | Nephrology at | MD Emanuel [address] [facility] | | | | | [place] | [address] | | | | | [facility] | [place], [place] | | | | | [address] | [address] | | | | | [place] | [phone] | | | | | [facility], | | | | | | [address] [place] [address] | | | | | | [place], [place] | | | | | | [address] | | | | | | [phone] | | | +--------+ + + + [...] Denise | | | | | | [place], [place] | | | | | | [address] | | | | | | [phone] | | | | | | | | +--------+ + + + + documented as of this encounter Visit Diagnoses Not on filedocumented in this encounter"
--- OUTSIDE RECORDS SUMMARY | 2019-12-25 21:27 | XMS | Encounter Summary ---
Demographics + + + | Address | [address] | | | [place] [address] | + + + | Home Phone [...] + + + | Author | [facility] | + + + | Organization | [facility] | + + + | Address | Unknown | + + + | Phone | Unavailable | + + + Support + + + + + | Name | Relationship | Address | Phone | + + + + + | Cory Weldon | ECON | [address] | | | | | [place] [address] | | + + + + + | Thania Mallory | ECON | [address] | | | | | [place] [address] | | + + + + + | Deidra Weldon | ECON | [address] | | | | | [place] | | | | | [address] | | + + + + + Care Team Providers + +------+ + | Care Director Of Staff Development Name | Role | Phone | + +------+ + PCP | Unavailable | + +------+ + Reason for Visit +--------+ + | Reason | Comments | +--------+ + | Other | Touching base | +--------+ + Encounter Details +--------+ + + + + | Date | Type | Department | Care Team | Description | +--------+ + + + + | 05/07/ | Documentati | Clinical | Kelsi Martinez, | Other (Touching base | | 2013 | on | Transplant Services | RN [address] | ) | | | | [address] | [facility] | | | | | Park [facility], | [place], [place] | | | | | [place] [address] | [address] | | | | | [phone] | | | +--------+ + + + [...] Telephone Encounter - Kelsi Martinez RN - 05/07/2013 8:[address] Fisher ins whether pt was ready to proceed with transplant and if the donor could begin his work-up . Pt has continued to have non-compliance with labs and needs to continue to be on hold. Emanuel Joy will contact this office when he feels pt is ready to proceed.Electronically sign ed by Kelsi Martinez RN at 05/07/2013 8:30 AM PSTdocumented in this encounter Plan of Treatment +--------+ + + + + | Date | Type | Specialty | Care Team | Description | +--------+ + + + + | 05/04/ | Hospital | Adult Acute Care | El Starr MD | | | 2022 | Encounter | | [address] | | | | | | [place], [place] | | | | | | [address] | | | | | | [phone] | | | | | | | | +--------+ + + + + documented as of this encounter Visit Diagnoses Not on filedocumented in this encounter"
--- OUTSIDE RECORDS SUMMARY | 2019-12-25 21:28 | XMS | Encounter Summary ---
Demographics + + + | Address | [address] | | | [place] [address] | + + + | Home Phone [...] Author + + + | Author | [facility] | + + + | Organization | [facility] | + + + | Address | Unknown | + + + | Phone | Unavailable | + + + Support + + + + + | Name | Relationship | Address | Phone | + + + + + | Cory Weldon | ECON | [address] | | | | | [place] [address] | | + + + + + | Thania Mallory | ECON | [address] | | | | | [place] [address] | | + + + + + | Deidra Weldon | ECON | [address] | | | | | [place] | | | | | [address] | | + + + + + Care Team Providers + +------+ + | Care Farmworker Animal Name | Role | Phone | + +------+ + | Shahid Camargo MD | PCP | | + +------+ + Reason for Visit + +--------+ + | Reason | Onset | Comments | | | Date | | + +--------+ + | Social work | 12/24/ | pt request to change clinic appt | | consultation | 2012 | | + +--------+ + Encounter Details +--------+ + + + + | Date | Type | Department | Care Team | Description | +--------+ + + + + | 12/24/ | Telephone | Clinical | Mariza Hsu | Social work | | 2012 | | Transplant Services | L [address] | consultation (pt | | | | [address] | [address] | request to change | | | | [place], | [place], [place] | clinic appt) | | | | [place] [address] | [address] | | | | | [phone] | | | +--------+ + + + [...] Denise | | | | | | [place], [place] | | | | | | [address] | | | | | | [phone] | | | | | | | | +--------+ + + + + documented as of this encounter Visit Diagnoses Not on filedocumented in this encounter"
--- OUTSIDE RECORDS SUMMARY | 2019-12-25 21:28 | XMS | Encounter Summary ---
Demographics + + + | Address | [address] | | | [place] [address] | + + + | Home Phone | | + + + | Preferred Language | Unknown | + + + | Marital Status | Single | + + + | Uatsdin Affiliation | Unknown | + + + | Race | White | + + + | Ethnic Group | Not or | + + + Author + + + | Author | [facility] | + + + | Organization | [facility] | + + + | Address | Unknown | + + + | Phone | Unavailable | + + + Support + + + + + | Name | Relationship | Address | Phone | + + + + + | Cory Weldon | ECON | [address] | | | | | [place] [address] | | + + + + + | Thania Mallory | ECON | [address] | | | | | [place] [address] | | + + + + + | Deidra Weldon | ECON | [address] | | | | | [place] | | | | | [address] | | + + + + + Care Team Providers + +------+ + | Care Road Maker Name | Role | Phone | + +------+ + PCP | Unavailable | + +------+ + Reason for Visit + +--------+ + | Reason | Onset | Comments | | | Date | | + +--------+ + | Candidate donor | 01/07/ | | | | 2012 | | + +--------+ + Encounter Details +--------+ + + + + | Date | Type | Department | Care Team | Description | +--------+ + + + + | 01/07/ | Telephone | Clinical | Kelsi Martinez, | Candidate donor | | 2012 | | Transplant Services | RN [address] | | | | | [address] | [facility] | | | | | [address] [place], | [place], [place] | | | | | [place] [address] | [address] | | | | | [phone] | | | +--------+ + + + [...] Telephone Encounter - Kelsi Martinez RN - 01/07/2013 10:52 AM PSTReceived phone call maxim jeffery pt stating that she would like to proceed with her father as a potential donor. Will noti fy donor coordinator and staff. 10 :55 AM PSTdocumented in this encounter Plan of Treatment +--------+ + + + + | Date | Type | Specialty | Care Team | Description | +--------+ + + + + | 05/04/ | Hospital | Adult Acute Care | El Starr MD | | | 2022 | Encounter | | [address] | | | | | | [place], [place] | | | | | | [address] | | | | | | [phone] | | | | | | | | +--------+ + + + + documented as of this encounter Visit Diagnoses Not on filedocumented in this encounter"
--- OUTSIDE RECORDS SUMMARY | 2019-12-25 21:28 | XMS | Encounter Summary ---
Demographics + + + | Address | [address] | | | [place] [address] | + + + | Home Phone | | + + + | Preferred Language | Unknown | + + + | Marital Status | Single | + + + | Pentecostalism Affiliation | Unknown | + + + [...] | | | | | [place] [address] | | + + + + + | Thania Mallory | ECON | [address] | | | | | [place] [address] | | + + + + + | Deidra Weldon | ECON | [address] | | | | | [place] | | | | | [address] | | + + + + + Care Team Providers + +------+ + | Care Forensic Document Examiner Name | Role | Phone | + +------+ + | Shahid Camargo MD | PCP | | + +------+ + Encounter Details +--------+ + + + + | Date | Type | Department | Care Team | Description | +--------+ + + + + | 12/20/ | Hospital | Radiology at [facility] | | | | 2012 | Encounter | [address] [facility] [facility] | | | | | | [place] | | | | | | [facility], | | | | | | [address] [place] [address] | | | | | | [place], [place] | | | | | | [address] | | | | | | [phone] | | | +--------+ + + + [...] Denise | | | | | | [place], [place] | | | | | | [address] | | | | | | [phone] | | | | | | | | +--------+ + + + + documented as of this encounter Procedures + +--------+ + + + | Procedure Name | Priori | Date/Time | Associated Diagnosis | Comments | | | ty | | | | + +--------+ + + + | X-RAY BONE AGE; LEFT | Routin | 12/20/2012 | Allergic purpura- | Results for this | | HAND | e | 9:29 AM | MEDICARE 2728 | procedure are in the | | | | PDT | | results section. | + +--------+ + + + documented in this encounter Results X-RAY BONE AGE; LEFT HAND (12/20/2012 9:29 AM PDT) + + + + + + | Component | Value | Ref Range | Performed | Pathologist | | | | | At | Signature | + + + + + + | BONE AGE, | BONE AGE LEFT HAND | | | | | LEFT HAND | COMPARISON: None | | | | | | available. HISTORY: | | | | | | Renal transplant work-up | | | | | | TECHNIQUE: Single PA | | | | | | left hand. FINDINGS: A | | | | | | frontal view of the left | | | | | | hand was performed for | | | | | | bone age. The | | | | | | osseousarchitecture is | | | | | | normal without fracture | | | | | | or focal destruction. | | | | | | There is noevidence of | | | | | | metabolic bone disease | | | | | | or bone dysplasia. The | | | | | | patient's chronologic | | | | | | age is 17 years 9 | | | | | | months. Mean for | | | | | | patient age is189.4 | | | | | | standard deviation is | | | | | | +/- 7.3 months. | | | | | | Observed bone age is | | | | | | closest to afemale of 17 | | | | | | years 0 months (192 | | | | | | months), according to | | | | | | standards of [facility] | | | | | | Gilberto. IMPRESSION: | | | | | | Observed bone age within | | | | | | one standard deviation | | | | | | of mean chronologic age. | | | | | | Attending Radiologists: | | | | | | SHARLENE NAILS MDAuthor: | | | | | | SHARLENE NAILS MD I have | | | | | | personally viewed this | | | | | | procedure/exam, reviewed | | | | | | this report, and | | | | | | madechanges to it where | | | | | | appropriate. | | | | | | Final/Electronically | | | | | | signed / SHARLENE NAILS | | | | | | 12/20/2012 10:03 AM | | | | + + + + + + + + | Specimen | + + | | + + + +---------+ + + | Performing | Address | City/State/Zipcode | Phone Number | | Organization | | | | + +---------+ + + | 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
--- OUTSIDE RECORDS SUMMARY | 2019-12-25 21:28 | XMS | Encounter Summary ---
Demographics + + + | Address | [address] | | | [place] [address] | + + + | Home Phone | | + + + | Preferred Language | Unknown | + + + | Marital Status | Single | + + + | Gnosticist Affiliation | Unknown | + + + [...] | | | | | [place] [address] | | + + + + + | Thania Mallory | ECON | [address] | | | | | [place] [address] | | + + + + + | Deidra Weldon | ECON | [address] | | | | | [place] | | | | | [address] | | + + + + + Care Team Providers + +------+ + | Care Boat Person Name | Role | Phone | + +------+ + PCP | Unavailable | + +------+ + Reason for Visit + + + | Reason | Comments | + + + | Transplant | LIT Family sheet | + + + Encounter Details +--------+ + + + + | Date | Type | Department | Care Team | Description | +--------+ + + + + | 01/09/ | Documentati | Kidney Transplant | Jesus Edmond, | Transplant (LIT | | 2012 | on | at [facility] [address] | MD [address] | Family sheet) | | | | [address] | [place] [place] | | | | | Physician's | [place], [place] | | | | | [place], [facility] floor | [address] | | | | | [place], [place] | [phone] | | | | | [address] | | | | | | [phone] | | | +--------+ + + + [...] Denise | | | | | | [place], [place] | | | | | | [address] | | | | | | [phone] | | | | | | | | +--------+ + + + + documented as of this encounter Visit Diagnoses Not on filedocumented in this encounter"
--- OUTSIDE RECORDS SUMMARY | 2019-12-25 21:28 | XMS | Encounter Summary ---
Demographics + + + | Address | [address] | | | [place] [address] | + + + | Home Phone | | + + + | Preferred Language | Unknown | + + + | Marital Status | Single | + + + | Zoroastrianism Affiliation | Unknown | + + + [...] | | | | | [place] [address] | | + + + + + | Thania Mallory | ECON | [address] | | | | | [place] [address] | | + + + + + | Deidra Weldon | ECON | [address] | | | | | [place] | | | | | [address] | | + + + + + Care Team Providers + +------+ + | Care Oracle Manager Name | Role | Phone | + +------+ + | Shahid Camargo MD | PCP | | + +------+ + Encounter Details +--------+ + + + + | Date | Type | Department | Care Team | Description | +--------+ + + + + | 12/20/ | Hospital | Cardiac | Sjh, Car Ecg Tech | | | 2012 | Encounter | Non-Invasive Testing | [address] | | | | | [facility] | [facility] | | | | | [address] | [place] [address] | | | | | [address] [facility] | | | | | | [place], [facility] floor | | | | | | [place], [place] | | | | | | [address] | | | | | | [phone] | | | +--------+ + + + [...] Denise | | | | | | [place], [place] | | | | | | [address] | | | | | | [phone] | | | | | | | | +--------+ + + + + documented as of this encounter Procedures + +--------+ + + + | Procedure Name | Priori | Date/Time | Associated Diagnosis | Comments | | | ty | | | | + +--------+ + + + | 12 LEAD ECG | Routin | 12/20/2012 | Allergic purpura- | Results for this | | | e | 11:49 AM | MEDICARE 5768 | procedure are in the | | | | PDT | | results section. | + +--------+ + + + documented in this encounter Results 12 LEAD ECG (12/20/2012 11:49 AM PDT) + + + + + + | Component | Value | Ref Range | Performed | Pathologist | | | | | At | Signature | + + + + + + | VENTRICULAR | 71 | BPM | [facility] | | | RATE | | | OF | | | | | | CARDIOLOGY | | + + + + + + | ATRIAL RATE | 71 | BPM | [facility] | | | | | | OF | | | | | | CARDIOLOGY | | + + + + + + | P-R | 155 | ms | [facility] | | | INTERVAL | | | OF | | | | | | CARDIOLOGY | | + + + + + + | QRS | 89 | ms | [facility] | | | DURATION | | | OF | | | | | | CARDIOLOGY | | + + + + + + | QT | 400 | ms | [facility] | | | | | | OF | | | | | | CARDIOLOGY | | + + + + + + | QTC | 435 | ms | [facility] | | | | | | OF | | | | | | CARDIOLOGY | | + + + + + + | P AXIS | 20 | degrees | [facility] | | | | | | OF | | | | | | CARDIOLOGY | | + + + + + + | R AXIS | 27 | degrees | [facility] | | | | | | OF | | | | | | CARDIOLOGY | | + + + + + + | T AXIS | 46 | degrees | [facility] | | | | | | OF | | | | | | CARDIOLOGY | | + + + + + + | EKG | Sinus rhythmNormal ECG"I | | [facility] | | | DIAGNOSIS | have personally | | OF | | | | interpreted this report, | | CARDIOLOGY | | | | either alone or with a | | | | | | trainee."Confirmed by | | | | | | SHIN TORREZ ([id number]) on | | | | | | 12/21/2012 9:37:54 AM | | | | + + + + + + + + | Specimen | + + | | + + + + + | Narrative | Performed At | + + + | Please click | [facility] OF | | on view image for the detailed interpretation from [employer] results. | CARDIOLOGY | + + + + + | Procedure Note | + + | Interface, Cardiology Results - 12/21/2012 9:38 AM PDT Please click on view image | | for the detailed interpretation from [email or web address] results. 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
--- OUTSIDE RECORDS SUMMARY | 2019-12-25 21:28 | XMS | Encounter Summary ---
Demographics + + + | Address | [address] | | | [place] [address] | + + + | Home Phone [...] Author + + + | Author | [facility] | + + + | Organization | [facility] | + + + | Address | Unknown | + + + | Phone | Unavailable | + + + Support + + + + + | Name | Relationship | Address | Phone | + + + + + | Cory Weldon | ECON | [address] | | | | | [place] [address] | | + + + + + | Thania Mallory | ECON | [address] | | | | | [place] [address] | | + + + + + | Deidra Weldon | ECON | [address] | | | | | [place] | | | | | [address] | | + + + + + Care Team Providers + +------+ + | Care Software Development Coordinator Name | Role | Phone | [...] | +--------+ + + + + | 12/27/ | Documentati | Clinical | Kelsi Martinez, | Transplant Form | | 2012 | on | Transplant Services | RN [address] | Update | | | | [address] | [facility] | | | | | [address] [place] [place], | [place], [place] | | | | | [place] [address] | [address] | | | | | [phone] | | | +--------+ + + + [...] documented as of this encounter Miscellaneous Notes Scan - Other, Faculty - 12/27/2012 6:45 PM PDTElectronically signed by Faculty Other at 6:45 PM PDTScan - Lamonte, Faculty - 12/27/2012 6:45 PM PDT documented in this encounter Plan of Treatment [...] [place] | | | | | | [address] | | | | | | [phone] | | | | | | | | +--------+ + + + + documented as of this encounter Visit Diagnoses Not on filedocumented in this encounter"
--- OUTSIDE RECORDS SUMMARY | 2019-12-25 21:28 | XMS | Encounter Summary ---
Demographics + + + | Address | [address] | | | [place] [address] | + + + | Home Phone [...] | | | | | [place] [address] | | + + + + + | Thania Mallory | ECON | [address] | | | | | [place] [address] | | + + + + + | Deidra Weldon | ECON | [address] | | | | | [place] | | | | | [address] | | + + + + + Care Team Providers + +------+ + | Care Bond Manager Name | Role | Phone | + +------+ + | Shahid Camargo MD | PCP | | + +------+ + Encounter Details +--------+ + + + + | Date | Type | Department | Care Team | Description | +--------+ + + + + | 12/20/ | Hospital | Radiology at [facility] | | | | 2012 | Encounter | [address] [facility] | | | | | | [place] | | | | | | [facility], | | | | | | [address] [place] [address] | | | | | | [place], [place] | | | | | | [address] | | | | | | [phone] | | | +--------+ + + + [...] Denise | | | | | | [place], [place] | | | | | | [address] | | | | | | [phone] | | | | | | | | +--------+ + + + + documented as of this encounter Procedures + +--------+ + + + | Procedure Name | Priori | Date/Time | Associated Diagnosis | Comments | | | ty | | | | + +--------+ + + + | X-RAY CHEST 2 VIEW | Routin | 12/20/2012 | Allergic purpura- | Results for this | | | e | 9:27 AM | MEDICARE 5524 | procedure are in the | | | | PDT | | results section. | + +--------+ + + + documented in this encounter Results X-RAY CHEST 2 VIEW (12/20/2012 9:27 AM PDT) + + + -+ + + | Component | Value | Ref Range | Performed | Pathologist | | | | | At | Signature | + + + -+ + + | CHEST, 2 | EXAM: CHEST 2 VIEWS | | | | | VIEWS [place] | HISTORY: Renal | | | | | STEREO | transplant workup | | | | | | COMPARISON: None | | | | | | FINDINGS:Clear lungs. No | | | | | | pleural effusion, edema | | | | | | or pneumothorax. | | | | | | Normal heart size | | | | | | andcardiomediastinal | | | | | | contours. No osseous | | | | | | abnormality. IMPRESSION: | | | | | | Normal. END IMPRESSION | | | | | | Attending [...] | | | | | | 12/20/2012 9:46 AM | | | | | | | | | | | | Final/Electronically signed / SHARLENE NAILS 12/20/2012 9:46 AM | | | | | | | | | | | | | | | | | | | | | | + + + -+ + + + + | Specimen | [...]
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
--- OUTSIDE RECORDS SUMMARY | 2019-12-25 21:28 | XMS | Encounter Summary ---
Demographics + + + | Address | [address] | | | [place] [address] | + + + | Home Phone | | + + + | Preferred Language | Unknown | + + + | Marital Status | Single | + + + | Amish Affiliation | Unknown | + + + [...] | | | | | [place] [address] | | + + + + + | Thania Mallory | ECON | [address] | | | | | [place] [address] | | + + + + + | Deidra Weldon | ECON | [address] | | | | | [place] | | | | | [address] | | + + + + + Care Team Providers + +------+ + | Care Ocean Lifeguard Specialist Name | Role | Phone | + +------+ + | Shahid Camargo MD | PCP | | + +------+ + Reason for Visit + + + | Reason | Comments | + + + | Transplant | LIT Family sheet & crossmatch report | + + + Encounter Details +--------+ + + + + | Date | Type | Department | Care Team | Description | +--------+ + + + + | 12/26/ | Documentati | Kidney Transplant | Jesus Edmond, | Transplant (LIT | | 2012 | on | at [facility] [address] | MD [address] | Family sheet & | | | | [address] | [address] | crossmatch report) | | | | Physician's | [place], [place] | | | | | [address], 3rd floor | [address] | | | | | [place], [place] | [phone] | | | | | [address] | | | | | | [phone] | | | +--------+ + + + [...] [address] | | | | | | [place], [place] | | | | | | [address] | | | | | | [phone] | | | | | | | | +--------+ + + + + documented as of this encounter Visit Diagnoses Not on filedocumented in this encounter"
--- OUTSIDE RECORDS SUMMARY | 2019-12-25 21:29 | XMS | Encounter Summary ---
Demographics + + + | Address | [address] | | | [place] [address] | + + + | Home Phone [...] | | | | | [place] [address] | | + + + + + | Thania Mallory | ECON | [address] | | | | | [place] [address] | | + + + + + | Deidra Weldon | ECON | [address] | | | | | [place] | | | | | [address] | | + + + + + Care Team Providers + +------+ + | Care Seismometer Operator Name | Role | Phone | + +------+ + | Shahid Camargo MD | PCP | | + +------+ + Reason for Referral Diagnostic Testing (Routine) +--------+--------+ + + + + | Status | Reason | Specialty | Diagnoses / | Referred By | Referred To | | | | | Procedures | Contact | Contact | +--------+--------+ + + + + | Closed | | Pediatric | Diagnoses | Joy, | Ped Echo | | | | Cardiology | Allergic | Sudhakar Castellanos, | Lab [address] | | | | | [address] | [address] | [address] | | | | | ([facility]) | [address] | [place] | | | | | Procedures | Caro Chan | Children's | | | | | TRANSTHORACI | [place], [place] | [address] | | | | | C | [address] | Floor | | | | | ECHOCARDIOGR | Phone: | [place], [place] | | | | | AM, PEDS | [phone] | [address] | | | | | | Fax: | Phone: | | | | | | [phone] | [phone] | | | | | | | Fax: | | | | | | | [phone] | +--------+--------+ + + + + Reason for Visit Diagnostic Testing (Routine) +--------+--------+ + + + + | Status | Reason | Specialty | Diagnoses / | Referred By | Referred To | | | | | Procedures | Contact | Contact | +--------+--------+ + + + + | Closed | | Pediatric | Diagnoses | Joy, | Ped Echo | | | | Cardiology | Allergic | Sudhakar Castellanos, | Lab [facility] [address] | | | | | [address] | [address] | [facility] [address] | | | | | ([facility]) | [address] | [place] | | | | | Procedures | Caro Chan | Children's | | | | | TRANSTHORACI | [place], [place] | [address] | | | | | C | [address] | Floor | | | | | ECHOCARDIOGR | Phone: | [place], [place] | | | | | AM, PEDS | [phone] | [address] | | | | | | Fax: | Phone: | | | | | | [phone] | [phone] | | | | | | | Fax: | | | | | | | [phone] | +--------+--------+ + + + + Encounter Details +--------+ + + + + | Date | Type | Department | Care Team | Description | +--------+ + + + + | 12/20/ | Hospital | Pediatric Echo Lab | | | | 2012 | Encounter | at [facility] | | | | | | [facility] | | | | | | [address] | | | | | | [place] | | | | | | [facility] | | | | | | 8th Floor [place], | | | | | | [place] [address] | | | | | | [phone] | | | +--------+ + + + [...] +---------+--------+ + documented as of this encounter Procedure Notes Other, Faculty - 12/20/2012 12:15 PM PDTAssociated Order(s): TRANSTHORACIC ECHOCARDIOGRAM, PEDS documented in this enco unter Plan of Treatment +--------+ + + + + | Date | Type | Specialty | Care Team | Description | +--------+ + + + + | 05/04/ | Hospital | Adult Acute Care | El Starr MD | | | 2022 | Encounter | | [address] | | | | | | [place], [place] | | | | | | [address] | | | | | | [phone] | | | | | | | | +--------+ + + + + documented as of this encounter Procedures + +--------+ + + + | Procedure Name | Priori | Date/Time | Associated Diagnosis | Comments | | | ty | | | | + +--------+ + + + | TRANSTHORACIC | Routin | 12/20/2012 | Allergic purpura- | Results for this | | ECHOCARDIOGRAM, PEDS | e | 12:00 AM | MEDICARE [id number] | procedure are in the | | | | PDT | | results section. 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
--- OUTSIDE RECORDS SUMMARY | 2019-12-25 21:29 | XMS | Encounter Summary ---
Demographics + + + | Address | [address] | | | [place] [address] | + + + | Home Phone [...] | | | | | [place] [address] | | + + + + + | Thania Mallory | ECON | [address] | | | | | [place] [address] | | + + + + + | Deidra Weldon | ECON | [address] | | | | | [place] | | | | | [address] | | + + + + + Care Team Providers + +------+ + | Care Prize Coordinator Name | Role | Phone | + +------+ + | Shahid Camargo MD | PCP | | + +------+ + Encounter Details +--------+ + + + + | Date | Type | Department | Care Team | Description | +--------+ + + + + | 12/19/ | Document-Sc | UNKNOWN DEPARTMENT | Unknown . | | | 2012 | anned | [address] | | | | | | [facility] | | | | | | [place], [place] | | | | | | [address] | | | +--------+ + + + [...] of this encounter Miscellaneous Notes Scan - Ashley Aburto - 03/28/2013 7:53 AM PSTElectronically signed by Ashley Aburto at 7:53 AM PSTdocumented in this encounter Plan of Treatment +--------+ + + + + | Date | Type | Specialty | Care Team | Description | +--------+ + + + + | 05/04/ | Hospital | Adult Acute Care | El Starr MD | | | 2022 | Encounter | | [address] | | | | | | [place] | | | | | | [address] | | | | | | [phone] | | | | | | | | +--------+ + + + + documented as of this encounter Visit Diagnoses Not on filedocumented in this encounter"
--- OUTSIDE RECORDS SUMMARY | 2019-12-25 21:29 | XMS | Encounter Summary ---
Demographics + + + | Address | [address] | | | [place] [address] | + + + | Home Phone [...] | | | | | [place] [address] | | + + + + + | Thania Mallory | ECON | [address] | | | | | [place] [address] | | + + + + + | Deidra Weldon | ECON | [address] | | | | | [place] | | | | | [address] | | + + + + + Care Team Providers + +------+ + | Care Operations Architect Name | Role | Phone | + +------+ + | Shahid Camargo MD | PCP | | + +------+ + Encounter Details +--------+------+ + + + | Date | Type | Department | Care Team | Description | +--------+------+ + + + | 12/20/ | Lab | Lab Center at | | Allergic purpura- | | 2012 | | [place] | | MEDICARE 2728 | | | | [facility] | | (Primary Dx) | | | | [address] | | | | | | [place] | | | | | | [facility] | | | | | | [address] [facility], | | | | | | [place] [address] | | | | | | [phone] | | | +--------+------+ + + + [...] documented as of this encounter Miscellaneous Notes Addendum Note - Allyson Conrad - 12/20/2012 12:51 PM PDT Addended by: ALLYSON CONRAD on: 12/20/2012 12:51 PM Modules accepted: Orders ddendum Note - Tonya Patel do - 12/20/2012 10:02 AM PDT Addended by: TONYA ADAMS MA on: 12/20/2012 10:02 AM Modules accepted: Orders documented in this encoun ter Plan of Treatment +--------+ + + + + | Date | Type | Specialty | Care Team | Description | +--------+ + + + + | 05/04/ | Hospital | Adult Acute Care | El Starr MD | | | 2022 | Encounter | | [address] | | | | | | [place], [place] | | | | | | [address] | | | | | | [phone] | | | | | | | | +--------+ + + + + documented as of this encounter Procedures + +--------+ + + + | Procedure Name | Priori | Date/Time | Associated Diagnosis | Comments | | | ty | | | | + +--------+ + + + | LIT FLOW HLA AB PRA | Routin | 12/20/2012 | Allergic purpura- | | | SCREEN I/II KE | e | 10:02 AM | MEDICARE 2728 | | | | | PDT | | | + +--------+ + + + | LIT HLA-B LOW RES-KE | Routin | 12/20/2012 | Allergic purpura- | | | | e | 10:02 AM | MEDICARE 2728 | | | | | PDT | | | + +--------+ + + + | LIT HLA-A LOW RES-KE | Routin | 12/20/2012 | Allergic purpura- | | | | e | 10:02 AM | MEDICARE 2728 | | | | | PDT | | | + +--------+ + + + | LIT HLA-DQ LOW | Routin | 12/20/2012 | Allergic purpura- | | | RES-KE | e | 10:02 AM | MEDICARE 2728 | | | | | PDT | | | + +--------+ + + + | LIT B-CELL XM KE, | Routin | 12/20/2012 | Allergic purpura- | | | BLOOD | e | 10:02 AM | MEDICARE 2728 | | | | | PDT | | | + +--------+ + + + | LIT FLOW XM KE, | Routin | 12/20/2012 | Allergic purpura- | Results for this | | BLOOD | e | 10:02 AM | MEDICARE 2728 | procedure are in the | | | | PDT | | results section. | + +--------+ + + + | LIT T-CELL XM KE, | Routin | 12/20/2012 | Allergic purpura- | | | BLOOD | e | 10:02 AM | MEDICARE 2728 | | | | | PDT | | | + +--------+ + + + | LIT RBC GROUP TX KE, | Routin | 12/20/2012 | Allergic purpura- | | | BLOOD | e | 10:02 AM | MEDICARE 2728 | | | | | PDT | | | + +--------+ + + + | LIT HLA-DR LOW | Routin | 12/20/2012 | Allergic purpura- | | | RES-KE | e | 10:02 AM | MEDICARE 2728 | | | | | PDT | | | + +--------+ + + + | CBC AND AUTO DIFF | Routin | 12/20/2012 | Allergic purpura- | Results for this | | | e | 8:39 AM | MEDICARE 2728 | procedure are in the | | | | PDT | | results section. | + +--------+ + + + | JUNE WYMAN VIRUS | Routin | 12/20/2012 | Allergic purpura- | Results for this | | AB VCA IGG, SERUM | e | 8:39 AM | MEDICARE 2728 | procedure are in the | | | | PDT | | results section. | + +--------+ + + + | QUANTIFERON TB GOLD, | Routin | 12/20/2012 | Allergic purpura- | Results for this | | BLOOD | e | 8:39 AM | MEDICARE 2728 | procedure are in the | | | | PDT | | results section. | + +--------+ + + + | PROTHROMBIN GENE | Routin | 12/20/2012 | Allergic purpura- | Results for this | | MUTATION, BLOOD | e | 8:39 AM | MEDICARE 2728 | procedure are in the | | | | PDT | | results section. | + +--------+ + + + | HEPATITIS C | Routin | 12/20/2012 | Allergic purpura- | Results for this | | QUANTITATIVE, PLASMA | e | 8:39 AM | MEDICARE 2728 | procedure are in the | | | | PDT | | results section. | + +--------+ + + + | CMV IGG AND IGM ABS, | Routin | 12/20/2012 | Allergic purpura- | Results for this | | SERUM | e | 8:39 AM | MEDICARE 2728 | procedure are in the | | | | PDT | | results section. | + +--------+ + + + | INR | Routin | 12/20/2012 | Allergic purpura- | Results for this | | | e | 8:39 AM | MEDICARE 2728 | procedure are in the | | | | PDT | | results section. | + +--------+ + + + | CBC, WITH | Routin | 12/20/2012 | Allergic purpura- | Results for this | | DIFFERENTIAL | e | 8:39 AM | MEDICARE 2728 | procedure are in the | | | | PDT | | results section. | + +--------+ + + + | VARICELLA ZOSTER | Routin | 12/20/2012 | Allergic purpura- | Results for this | | IGG, SERUM | e | 8:39 AM | MEDICARE 2728 | procedure are in the | | | | PDT | | results section. | + +--------+ + + + | HSV ANTIBODY, SERUM | Routin | 12/20/2012 | Allergic purpura- | Results for this | | | e | 8:39 AM | MEDICARE 2728 | procedure are in the | | | | PDT | | results section. | + +--------+ + + + | TRANSFERRIN | Routin | 12/20/2012 | Allergic purpura- | Results for this | | | e | 8:39 AM | MEDICARE 2728 | procedure are in the | | | | PDT | | results section. | + +--------+ + + + | COMPLETE METABOLIC | Routin | 12/20/2012 | Allergic purpura- | Results for this | | SET | e | 8:39 AM | MEDICARE 2728 | procedure are in the | | (NA,K,CL,CO2,BUN,CRE | | PDT | | results section. | | AT,GLUC,CA,AST,ALT,B | | | | | | SHUN TOTAL,ALK | | | | | | PHOS,ALB,PROT TOTAL) | | | | | + +--------+ + + + | UA, DIPSTICK ONLY | Routin | 12/20/2012 | Allergic purpura- | Results for this | | | e | 8:39 AM | MEDICARE 2728 | procedure are in the | | | | PDT | | results section. | + +--------+ + + + | URINE, MICROSCOPIC | Routin | 12/20/2012 | Allergic purpura- | Results for this | | EXAM | e | 8:39 AM | MEDICARE 2728 | procedure are in the | | | | PDT | | results section. | + +--------+ + + + | HIV AB/AG SCREENING | Routin | 12/20/2012 | Allergic purpura- | Results for this | | W/REFLEX TO CONFIRM | e | 8:39 AM | MEDICARE 2728 | procedure are in the | | | | PDT | | results section. | + +--------+ + + + | RPR SERUM | Routin | 12/20/2012 | Allergic purpura- | Results for this | | | e | 8:39 AM | MEDICARE 2728 | procedure are in the | | | | PDT | | results section. | + +--------+ + + + | APTT (ACT. PART. | Routin | 12/20/2012 | Allergic purpura- | Results for this | | THROMBO TIME) | e | 8:39 AM | MEDICARE 2728 | procedure are in the | | | | PDT | | results section. | + +--------+ + + + | ANTIBODY SCREEN | Routin | 12/20/2012 | Allergic purpura- | Results for this | | | e | 8:39 AM | MEDICARE 2728 | procedure are in the | | | | PDT | | results section. | + +--------+ + + + | TYPE AND SCREEN | Routin | 12/20/2012 | Allergic purpura- | Results for this | | | e | 8:39 AM | MEDICARE 2728 | procedure are in the | | | | PDT | | results section. | + +--------+ + + + | ABO & RH TYPE | Routin | 12/20/2012 | Allergic purpura- | Results for this | | | e | 8:39 AM | MEDICARE 2728 | procedure are in the | | | | PDT | | results section. | + +--------+ + + + | CULTURE, URINE BACTI | Routin | 12/20/2012 | Allergic purpura- | Results for this | | | e | 8:39 AM | MEDICARE 2728 | procedure are in the | | | | PDT | | results section. | + +--------+ + + + | PHOSPHORUS, PLASMA | Routin | 12/20/2012 | Allergic purpura- | Results for this | | | e | 8:39 AM | MEDICARE 2728 | procedure are in the | | | | PDT | | results section. | + +--------+ + + + | FERRITIN | Routin | 12/20/2012 | Allergic purpura- | Results for this | | | e | 8:39 AM | MEDICARE 2728 | procedure are in the | | | | PDT | | results section. | + +--------+ + + + | PTH, SERUM | Routin | 12/20/2012 | Allergic purpura- | Results for this | | | e | 8:39 AM | MEDICARE 2728 | procedure are in the | | | | PDT | | results section. | + +--------+ + + + | HEPATITIS B SURFACE | Routin | 12/20/2012 | Allergic purpura- | Results for this | | AB QUAL, SERUM | e | 8:39 AM | MEDICARE 2728 | procedure are in the | | | | PDT | | results section. | + +--------+ + + + | HEPATITIS B SURFACE | Routin | 12/20/2012 | Allergic purpura- | Results for this | | AG, SERUM | e | 8:39 AM | MEDICARE 2728 | procedure are in the | | | | PDT | | results section. | + +--------+ + + + | HEPATITIS B CORE AB, | Routin | 12/20/2012 | Allergic purpura- | Results for this | | SERUM | e | 8:39 AM | MEDICARE 2728 | procedure are in the | | | | PDT | | results section. | + +--------+ + + + | HEPATITIS A AB | Routin | 12/20/2012 | Allergic purpura- | Results for this | | SCREEN, SERUM | e | 8:39 AM | MEDICARE 2728 | procedure are in the | | | | PDT | | results section. | + +--------+ + + + | BILIRUBIN DIRECT | Routin | 12/20/2012 | Allergic purpura- | Results for this | | | e | 8:39 AM | MEDICARE 2728 | procedure are in the | | | | PDT | | results section. | + +--------+ + + + | URIC ACID, PLASMA | Routin | 12/20/2012 | Allergic purpura- | Results for this | | | e | 8:39 AM | MEDICARE 2728 | procedure are in the | | | | PDT | | results section. | + +--------+ + + + | MAGNESIUM, PLASMA | Routin | 12/20/2012 | Allergic purpura- | Results for this | | | e | 8:39 AM | MEDICARE 2728 | procedure are in the | | | | PDT | | results section. | + +--------+ + + + | LDH TOTAL, PLASMA | Routin | 12/20/2012 | Allergic purpura- | Results for this | | | e | 8:39 AM | MEDICARE 2728 | procedure are in the | | | | PDT | | results section. | + +--------+ + + + | IRON AND TIBC, SERUM | Routin | 12/20/2012 | Allergic purpura- | Results for this | | | e | 8:39 AM | MEDICARE 2728 | procedure are in the | | | | PDT | | results section. | + +--------+ + + + | CHOLESTEROL TOTAL, | Routin | 12/20/2012 | Allergic purpura- | Results for this | | PLASMA | e | 8:39 AM | MEDICARE 2728 | procedure are in the | | | | PDT | | results section. | + +--------+ + + + documented in this encounter Results LIT FLOW XM KE, BLOOD (12/20/2012 10:02 AM PDT) + + + + + [...] [facility] - | [address] | [place] [address] | | | IMMUNOGENETICS/TRANS | [address] | | | | PL[facility] | | | | + + + + + LIT B-CELL XM KE, BLOOD (12/20/2012 10:02 AM PDT) + + | Specimen | + + | Blood - Blood | + + + + + + + | Performing | Address | City/State/Zipcode | Phone Number | | Organization | | | | + + + + + | [facility] - | [address] | [place] [address] | | | IMMUNOGENETICS/TRANS | [address] | | | | PL[facility] LAB[facility]AT[facility] | | | | + + + + + LIT T-CELL XM KE, BLOOD (12/20/2012 10:02 AM PDT) + + | Specimen | + + | Blood - Blood | + + + + + + + | Performing | Address | City/State/Zipcode | Phone Number | | Organization | | | | + + + + + | [facility] - | [address] | [place] [address] | | | IMMUNOGENETICS/TRANS | [address] | | | | PL[facility] LAB[facility]ATORY | | | | + + + + + LIT HLA-B WILEY ZHANG (12/20/2012 10:02 AM PDT) + + | Specimen | + + | Blood - Blood | + + + + + + + | Performing | Address | City/State/Zipcode | Phone Number | | Organization | | | | + + + + + | [facility] - | [address] | [place], [place] | | | IMMUNOGENETICS/TRANS | [address] | | | | PLANT LAB[facility]ATORY | | | | + + + + + LIT FLOW HLA AB PRA SCREEN I/II KE (12/20/2012 10:02 AM PDT) + + | Specimen | + + | Blood - Blood | + + + + + + + | Performing | Address | City/State/Zipcode | Phone Number | | Organization | | | | + + + + + | [facility] - | [address] | [place], [place] | | | IMMUNOGENETICS/TRANS | [address] | | | | PLANT LAB[facility]ATORY | | | | + + + + + LIT HLA-A LOW RES-KE (12/20/2012 10:02 AM PDT) + + | Specimen | + + | Blood - Blood | + + + + + + + | Performing | Address | City/State/Zipcode | Phone Number | | Organization | | | | + + + + + | [facility] - | [address] | [place] [address] | | | IMMUNOGENETICS/TRANS | [address] | | | | PLANT LAB[facility]ATORY | | | | + + + + + LIT RBC GROUP TX KE, BLOOD (12/20/2012 10:02 AM PDT) + + | Specimen | + + | Blood - Blood | + + + + + + + | Performing | Address | City/State/Zipcode | Phone Number | | Organization | | | | + + + + + | [facility] - | [address] | [place] [address] | | | IMMUNOGENETICS/TRANS | [address] | | | | PLANT LAB[facility]ATORY | | | | + + + + + LIT HLA-DR LOW RES-KE (12/20/2012 10:02 AM PDT) + + | Specimen | + + | Blood - Blood | + + + + + + + | Performing | Address | City/State/Zipcode | Phone Number | | Organization | | | | + + + + + | [facility] - | [address] | [place] [address] | | | IMMUNOGENETICS/TRANS | [address] | | | | PLANT LAB[facility]ATORY | | | | + + + + + LIT HLA-DQ LOW RES-EVA (12/20/2012 10:02 AM PDT) + + | Specimen | + + | Blood - Blood | + + + + + + + | Performing | Address | City/State/Zipcode | Phone Number | | Organization | | | | + + + + + | [facility] - | [address] | [place] [address] | | | IMMUNOGENETICS/TRANS | [address] | | | | PL[facility] LAB[facility]ATORY | | | | + + + + + ANTIBODY SCREEN (12/20/2012 8:39 AM PDT) + + + + + + | Component | Value | Ref Range | Performed | Pathologist | | | | | At | Signature | + + + + + + | Antibody | Negative | | [facility] | | | Screen | | | LABORATORY | | | | | | SERVICES, | | | | | | TRANSFUSION | | | | | | MEDICINE | | + + + + + + + + | Specimen | + + | Blood - Blood | + + + + + + + | Performing | Address | City/State/Zipcode | Phone Number | | Organization | | | | + + + + + | [facility] | [address] | [place] [address] | | | SERVICES, | [address] | | | | TRANSFUSION MEDICINE | | | | + + + + + ABO & RH TYPE (12/20/2012 8:39 AM PDT) + + + + + + | Component | Value | Ref Range | Performed | Pathologist | | | | | At | Signature | + + + + + + | ABO Group | O | | [facility] | | | | | | LABORATORY | | | | | | SERVICES, | | | | | | TRANSFUSION | | | | | | MEDICINE | | + + + + + + | Rh Type | Negative | | [facility] | | | | | | LABORATORY | | | | | | SERVICES, | | | | | | TRANSFUSION | | | | | | MEDICINE | | + + + + + + + + | Specimen | + + | Blood - Blood | + + + + + + + | Performing | Address | City/State/Zipcode | Phone Number | | Organization | | | | + + + + + | [facility] | [address] | [place] [address] | | | SERVICES, | [address] | | | | TRANSFUSION MEDICINE | | | | + + + + + CBC AND AUTO DIFF (12/20/2012 8:39 AM PDT) + + + + + + | Component | Value | Ref Range | Performed | Pathologist | | | | | At | Signature | + + + + + + | WHITE CELL | 6.40 | 4.90 - 15.50 | [facility] | | | COUNT | | K/cu mm | LABORATORY | | | | | | SERVICES, | | | | | | CORE | | + + + + + + | RED CELL | 3.09 (L) | 4.10 - 5.10 | [facility] | | | COUNT | | M/cu mm | LABORATORY | | | | | | SERVICES, | | | | | | CORE | | + + + + + + | HEMOGLOBIN | 10.2 (L) | 12.0 - 16.0 | [facility] | | | | | g/dL | LABORATORY | | | | | | SERVICES, | | | | | | CORE | | + + + + + + | HEMATOCRIT | 30.4 (L) | 36.0 - 46.0 % | [facility] | | | | | | LABORATORY | | | | | | SERVICES, | | | | | | CORE | | + + + + + + | MCV | 98.4 (H) | 80.0 - 96.0 fL | [facility] | | | | | | LABORATORY | | | | | | SERVICES, | | | | | | CORE | | + + + + + + | MCHC | 33.6 | 33.0 - 35.5 | [facility] | | | | | g/dL | LABORATORY | | | | | | SERVICES, | | | | | | CORE | | + + + + + + | RDW SD | 47.1 (H) | 35.1 - 46.3 fL | [facility] | | | | | | LABORATORY | | | | | | SERVICES, | | | | | | CORE | | + + + + + + | PLATELET | 248 | 150 - 400 K/cu | [facility] | | | COUNT | | mm | LABORATORY | | | | | | SERVICES, | | | | | | CORE | | + + + + + + | MPV | 11.4 | 9.7 - 12.3 fL | [facility] [...] + + + + | NEUTROPHIL | 63.3 | 41.0 - 76.0 % | [facility] | | | % | | | LABORATORY | | | | | | SERVICES, | | | | | | CORE | | + + + + + + | LYMPHOCYTE | 26.1 | 7.0 - 41.0 % | [facility] | | | % | | | LABORATORY | | | | | | SERVICES, | | | | | | CORE | | + + + + + + | MONOCYTE % | 6.3 | 3.0 - 13.0 % | [facility] | | | | | | LABORATORY | | | | | | SERVICES, | | | | | | CORE | | + + + + + + | EOS % | 3.4 | 0.0 - 6.0 % | [facility] | | | | | | LABORATORY | | | | | | SERVICES, | | | | | | CORE | | + + + + + + | BASO % | 0.6 | 0.0 - 2.0 % | [facility] | | | | | | LABORATORY | | | | | | SERVICES, | | | | | | CORE | | + + + + + + | IG% | 0.3 | 0.0 - 0.6 % | [facility] | | | | | | LABORATORY | | | | | | SERVICES, | | | | | | CORE | | + + + + + + | NEUTROPHIL | 4.05 | 2.80 - 11.10 | [facility] | | | # | | K/cu mm | LABORATORY | | | | | | SERVICES, | | | | | | CORE | | + + + + + + | LYMPHOCYTE | 1.67 | 0.40 - 3.20 | [facility] | | | # | | K/cu mm | LABORATORY | | | | | | SERVICES, | | | | | | CORE | | + + + + + + | MONOCYTE # | 0.40 | 0.30 - 1.30 | [facility] | | | | | K/cu mm | LABORATORY | | | | | | SERVICES, | | | | | | CORE | | + + + + + + | EOS # | 0.22 | 0.00 - 0.30 | [facility] | | | | | K/cu mm | LABORATORY | | | | | | SERVICES, | | | | | | CORE | | + + + + + + | BASO # | 0.04 | 0.00 - 0.20 | [facility] | | | | | [...] At | + + + | Immature Granulocyes (IG) include metamyelocytes, myelocytes | [facility] | | and promyelocytes. Bands are not included in the IG count. New | LABORATORY | | methodology and reference ranges for some CBC/Differential analytes in | SERVICES, CORE | | effect on 09/21/12. | | + + + + + + + + | Performing | Address | City/State/Zipcode | Phone Number | | Organization | | | | + + + + + | [facility] | [address] [place] [address] | [place] [address] | | | SERVICES, CORE | [address] | | | + + + + + TRANSFERRIN, SERUM (12/20/2012 8:39 AM PDT) + + + + + + | Component | Value | Ref Range | Performed | Pathologist | | | | | At | Signature | + + + + + + | TRANSFERRIN | 232Comment: Performed by | 200 - 400 mg/dL | [facility] | | | , SERUM | [address] | | REG UNIV | | | | Lorne Drew, [facility] | | PTH - [facility] | | | | [address] | | | | | | [phone]. | | | | | | Faisal [...] [facility] | [address] | [place], [place] | | | UNIV PTH - [facility] | | [address] | | + + + + + FERRITIN, SERUM (12/20/2012 8:39 AM PDT) + +-------+ + + + | Component | Value | Ref Range | Performed | Pathologist | | | | | At | Signature | + +-------+ + + + | FERRITIN | 76 | 12 - 90 ng/mL | [facility] | | | | | | LABORATORY | | | | | | SERVICES, | | | | | | CORE | | + +-------+ + + + + + | Specimen | + + | Blood - Blood | + + + + + | Narrative | Performed At | + + + | New reporting units and pediatric reference ranges effective | [facility] | | 07/25/2012. | LABORATORY | | | SERVICES, CORE | + + + + + + + + | Performing | Address | City/State/Zipcode | Phone Number | | Organization | | | | + + + + + | [facility] | [address] | [place] [address] | | | SERVICES, CORE | [address] | | | + + + + + IRON AND TIBC, SERUM (12/20/2012 8:39 AM PDT) + +-------+ + + + | Component | Value | Ref Range | Performed | Pathologist | | | | | At | Signature | + +-------+ + + + | IRON | 71 | 30 - 160 ug/dL | [facility] | | | | | | LABORATORY | | | | | | SERVICES, | | | | | | CORE | | + +-------+ + + + | IRON BIND | 278 | 250 - 400 ug/dL | [facility] | | | CAP | | | LABORATORY | | | | | | SERVICES, | | | | | | CORE | | + +-------+ + + + | % | 26 | 20 - 50 % | [facility] | | | SATURATION | | | LABORATORY | | | TRANSFERRIN | | | SERVICES, | | | , | | | CORE | | + +-------+ + + + + + | Specimen | + + | Blood - Blood | + + + + + + + | Performing | Address | City/State/Zipcode | Phone Number | | Organization | | | | + + + + + | [facility] | [address] | [place] [address] | | | SERVICES, CORE | [address] | | | + + + + + VARICELLA ZOSTER IGG, SERUM (12/20/2012 8:39 AM PDT) + + + + + + | Component | Value | Ref Range | Performed | Pathologist | | | | | At | Signature | + + + + + + | VARICELLA | Equivocal (A) | | [facility] | | [...] + | [facility] | [address] | [place] [address] | | | [place] | | | | + + + + + URINE, MICROSCOPIC EXAM (12/20/2012 8:39 AM PDT) + + + + + + | Component | Value | Ref Range | Performed | Pathologist | | | | | At | Signature | + + + + + + | RED CELLS | 39 (H) | 0 - 3 /hpf | [facility] | | | | | | LABORATORY | | | | | | SERVICES, | | | | | | CORE | | + + + + + + | WHITE CELLS | 7 (H) | 0 - 5 /hpf | [facility] | | | | | | LABORATORY | | | | | | SERVICES, | | | | | | CORE | | + + + + + + | BACTERIA | Few (A) | None /hpf | [facility] | | | | | | LABORATORY | | | | | | SERVICES, | | | | | | CORE | | + + + + + + | YEAST (LAB) | None | None /hpf | [facility] | | | | | | LABORATORY | | | | | | SERVICES, | | | | | | CORE | | + + + + + + | SQUAMOUS | Many (A) | None /hpf | [facility] | | | EPITHELIAL | | | LABORATORY | | | | | | SERVICES, | | | | | | CORE | | + + + + + + | MUCOUS | Few (A) | None /hpf | [facility] | | | | | | LABORATORY | | | | | | SERVICES, | | | | | | CORE | | + + + + + + | TRICHOMONAS | None | None /hpf | [facility] | | | | | | LABORATORY | | | | | | SERVICES, | | | | | | CORE | | + + + + + + | NON-SQUAMOU | Few (A) | None /hpf | [facility] | | | S EPITH | | | LABORATORY | | | | | | SERVICES, | | | | | | CORE | | + + + + + + | HYALINE | 0 | 0 - 2 /lpf | [facility] | | | CASTS | | | LABORATORY | | | | | | SERVICES, | | | | | | CORE | | + + + + + + | GRANULAR | 0 | 0 - 2 /lpf | [facility] | | | CASTS | | | LABORATORY | | | | | | SERVICES, | | | | | | CORE | | + + + + + + | CELLULAR | 0 | <=0 /lpf | [facility] | | | CASTS | | | LABORATORY | | | | | | SERVICES, | | | | | | CORE | | + + + + + + | TRIPLE P04 | None | None /hpf | [facility] | | | CRYSTALS | | | LABORATORY | | | | | | SERVICES, | | | | | | CORE | | + + + + + + | CALCIUM | None | None /hpf | [facility] | | | OXALATE | | | LABORATORY | | | MELINA | | | SERVICES, | | | | | | CORE | | + + + + + + | URIC ACID | None | None /hpf | [facility] | | | [facility] | | | LABORATORY | | | | | | SERVICES, | | | | | | CORE | | + + + + + + | AMORPHOUS | Few (A) | None /hpf | [facility] | | | [facility] | | | LABORATORY | | | | | | SERVICES, | | | | | | CORE | | + + + + + + + + | Specimen | + + | Urine | + + + + + + + | Performing | Address | City/State/Zipcode | Phone Number | | Organization | | | | + + + + + | [facility] | [address] | [place] [address] | | | SERVICES, CORE | [address] | | | + + + + + URIC ACID, PLASMA (12/20/2012 8:39 AM PDT) + +---------+ + + + | Component | Value | Ref Range | Performed | Pathologist | | | | | At | Signature | + +---------+ + + + | URIC ACID, | 6.5 (H) | 2.5 - 6.2 mg/dL | [facility] [...] + + + + + | [facility] | [address] | [place] [address] | | | SERVICES, CORE | [address] | | | + + + + + ROCÍO GARAY ONLY (12/20/2012 8:39 AM PDT) + + + + + + | Component | Value | Ref Range | Performed | Pathologist | | | | | At | Signature | + + + + + + | COLOR(UR) | Yellow | | [facility] | | | | | | LABORATORY | | | | | | RIKY, | | | | | | CORE | | + + + + + + | APPEARANCE | Mod. Cloudy | | [facility] | | | | | | LABORATORY | | | | | | SERVICES, | | | | | | CORE | | + + + + + + | GLUCOSE(UR) | 50.0 | Negative, 50.0 | [facility] | | | | | mg/dL | LABORATORY | | | | | | SERVICES, | | | | | | CORE | | + + + + + + | PROTEIN(LAB | >=500.0 (A) | Negative, 30.0 | [facility] | | | ) | | mg/dL | LABORATORY | | | | | | SERVICES, | | | | | | CORE | | + + + + + + | BILIRUBIN | Negative | Negative | [facility] | | | | | | LABORATORY | | | | | | SERVICES, | | | | | | CORE | | + + + + + + | UROBILINOGE | <2.0 | <2.0 mg/dL | [facility] | | | N | | | LABORATORY | | | | | | SERVICES, | | | | | | CORE | | + + + + + + | PH(UR) | 5.0 | 5.0 - 8.0 | [facility] | | | | | | LABORATORY | | | | | | SERVICES, | | | | | | CORE | | + + + + + + | BLOOD | Moderate (A) | Negative | [facility] | | | | | | LABORATORY | | | | | | SERVICES, | | | | | | CORE | | + + + + + + | KETONES | Negative | Negative mg/dL | [facility] | | | | | | LABORATORY | | | | | | SERVICES, | | | | | | CORE | | + + + + + + | NITRITES | Negative | Negative | [facility] | | | | | | LABORATORY | | | | | | SERVICES, | | | | | | CORE | | + + + + + + | LEUKOCYTE | Negative | Negative | [facility] | | | ESTERASE | | | LABORATORY | | | | | | SERVICES, | | | | | | CORE | | + + + + + + | SPECIFIC | 1.010 | 1.005 - 1.030 | [facility] | | | GRAVITY | | | LABORATORY | | | | | | SERVICES, | | | | | | CORE | | + + + + + + + + | Specimen | + + | Urine | + + + + + + + | Performing | Address | City/State/Zipcode | Phone Number | | Organization | | | | + + + + + | [facility] | [address] | [place] [address] | | | [address] | [facility] | | | + + + + + RPR SERUM (12/20/2012 8:39 AM PDT) + + + + + + | Component | Value | Ref Range | Performed | Pathologist | | | | | At | Signature | + + + + + + | RPR SRM | Non-Reactive | Non-Reactive | [facility] | | | QUAL | | | [facility] - | | | | | | [place] | | + + + + + + + + | Specimen | + + | Blood - Blood | + + + + + + + | Performing | Address | City/State/Zipcode | Phone Number | | Organization | | | | + + + + + | [facility] | [address] | [place] [address] | | | [place] | | | | + + + + + QUANTIFERON TB GOLD, BLOOD (12/20/2012 8:39 AM PDT) + + + + + + | Component | Value | Ref Range | Performed | Pathologist | | | | | At | Signature | + + + + + + | QUANTIFERON | Negative | Negative, | [facility] | | | TB GOLD | | Indeterminate | REFERENCE | | | | | | LAB | | + + + + + + | NIL | 0.10 | IU/mL | [facility] | | | | | | REFERENCE | | | | | | LAB | | + + + + + + | TB AG | 0.08 | IU/mL | [facility] | | | | | | REFERENCE | | | | | | LAB | | + + + + + + | MITOGEN | 1.20 | IU/mL | [facility] | | | | | | REFERENCE | | | | | | LAB | | + + + + + + | MITOGEN-NIL | 1.10 | IU/mL | [facility] | | | | | | REFERENCE | | | | | | LAB | | + + + + + + | TB AG-NIL | -0.02 | IU/mL | [facility] | | | | | | REFERENCE | | | | | | LAB | | + + + + + + + + | Specimen | + + | Blood - Blood | + + + + + | Narrative | Performed At | + + + | Interpretation Criteria for QuantiFERON Testing: Interpretation | [facility] | | TB Ag-Nil Nil Mitogen-Nil | REFERENCE LAB | | (IU/mL)* (IU/mL) | | | (IU/mL)* | | | | | | | | | Positive >=0.35 | | | <=8.0 any | | | (and >= 25% of Nil) | | | | | | | | | Negative <0.35 | | | <=8.0 >=0.5 | | | (or <25% of Nil) | | | | | | | | | | | | Indeterminate <0.35 | | | <=8.0 <0.5 | | | (or <25% of Nil) | | | | | | | | | Indeterminate any | | | >8.0 any | | | | | | *Corrected for Nil response. | | | NOTE: Diagnosing or excluding | | | tuberculosis disease, and assessing the probability of LTBI, | | | requires a combination of epidemiological, | | | historical, medical, and diagnostic findings that should be | | | taken into account when interpreting QuantiFERON TB Gold results. | | | | | | See CDC QFT-G Fact Sheet at: | | | | | | http://www.cdc.gov/nchstp/tb/pubs/tbfactssheets/824802.htm | | | Test performed by: [facility] [address] | | [address] [place] [address] | | + + + + + + + + | Performing | Address | City/State/Zipcode | Phone Number | | Organization | | | | + + + + + | [facility] | | | | + + + + + | [facility] | see below | | | + + + + + PTH, SERUM (12/20/2012 8:39 AM PDT) + + + + + + | Component | Value | Ref Range | Performed | Pathologist | | | | | At | Signature | + + + + + + | PARATHYROID | 458.4 (H) | 15.0 - 85.0 | [facility] | | | . INTACT | | pg/ml | LABORATORY | | | | | | SERVICES, | | | | | | SPECIAL IMM | | [...] [facility] | [address] | [place] [address] | | | SERVICES, SPECIAL | [address] | | | | IMM + COAG | | | | + + + + + PROTHROMBIN GENE MUTATION, BLOOD (12/20/2012 8:39 AM PDT) + + + + + + | Component | Value | Ref Range | Performed | Pathologist | | | | | At | Signature | + + + + + + | PROTHROMBIN | No Mutation | | [facility] | | | GENE | | | DIAGNOSTIC | | | MUTATION | | | | | | | | | LABORATORIE | | | | | | S | | + + + + + + + + | Specimen | + + | Blood - Blood | + + + + + | Narrative | Performed At | + + + | INTERPRETATION: Prothrombin mutation analysis shows that | [facility] | | there is no mutation in either copy of the prothrombin gene at | DIAGNOSTIC | | nucleotide [id number]. Please note that this assay only detects the | LABORATORIES | | [id number] point mutation and therefore a normal result (in one or both | | | alleles) does not rule out an abnormal phenotype. Other mutations | | | responsible for a hypercoagulable state cannot be ruled out. Thank | | | you very much for your referral. Please do not hesitate to contact | | | us for additional information as to the ramifications of this test | | | result. We look forward to assisting you again in the future. As | | | per your request, DNA has been analyzed for the presence of [id number] | | | mutation in the prothrombin gene that has been associated with | | | elevated prothrombin levels and an increased risk of venous thrombosis | | | (1,2). For this assay, a specific region of the prothrombin gene | | | has been amplified by PCR and analyzed using a fluorescently labeled | | | sequence-specific probe. A fluorescent melting curve of the | | | hybridization kinetics of the sample and necessary controls has been | | | examined; the clinical interpretation is detailed above. | | | Heterozygotes for the common prothrombin [id number] mutation constitute | | | approximately 2% of the normal white population (1,2). | | | References: 1.) Poort et al. Blood 88, 3458-7769 (1996). 2.) Ricardo | | | et al. Circulation 99, 999-1004 (1998). 3.) Al Montalvo, and | | | Press. Amer J Clin Path 155, 439-47 (2001). This test was | | | developed and its performance characteristics determined by the [facility] | | | [facility]. It has | | | not been cleared or approved by the Food and Drug Administration. | | | FDA approval is not required for clinical use of this test, and | | | therefore validation was done as required under the requirements of | | | the Clinical Laboratory Improvement Act of 1988. The [facility] | | | Diagnostic [facility] is a fully | | | licensed and/or accredited clinical laboratory under CLIA, CAP, and | | | the [facility]. Please note that our lab now also offers a | | | clinical diagnostic test to directly detect the most common cause of | | | hereditary thrombotic predisposition, the R506Q Factor V Leiden | | | mutation. Should this patient be undergoing a hypercoagulable | | | evaluation, a Factor V mutation analysis may also be clinically | | | indicated. Reviewed and electronically signed by MINNIE ANTOINE, | | | ,PhD 12/28/2012 12:24 PM | | + + + + + + + + | Performing | Address | City/State/Zipcode | Phone Number | | Organization | | | | + + + + + | [facility] | [address] | [place] [address] | | | DIAGNOSTIC | [address] | | | | LABORATORIES | | | | + + + + + PHOSPHORUS, PLASMA (12/20/2012 8:39 AM PDT) + +---------+ + + + | Component | Value | Ref Range | Performed | Pathologist | | | | | At | Signature | + +---------+ + + + | PHOSPHORUS, | 5.4 (H) | 2.4 - 4.7 mg/dL | [facility] [...] | + + + + + | [facility] | [address] | [place] [address] | | | SERVICES, CORE | [address] | | | + + + + + MAGNESIUM, PLASMA (12/20/2012 8:39 AM PDT) + +---------+ + + + | Component | Value | Ref Range | Performed | Pathologist | | | | | At | Signature | + +---------+ + + + | MAGNESIUM,P | 2.6 (H) | 1.8 - 2.5 mg/dL | [facility] | | | LASMA | | | [...] | + + + + + | [facility] | [address] | [place] [address] | | | SERVICES, CORE | [address] | | | + + + + + LDH TOTAL, PLASMA (12/20/2012 8:39 AM PDT) + +---------+ + + + | Component | Value | Ref Range | Performed | Pathologist | | | | | At | Signature | + +---------+ + + + | LD TOTAL, | 257 (H) | 155 - 250 U/L | [facility] | | | PLASMA [...] Performed At | + + + | New reference range effective 2012 for LD Total performed | [facility] | | in Core Lab only. | LABORATORY | | | SERVICES, CORE | + + + + + + + + | Performing | Address | City/State/Zipcode | Phone Number | | Organization | | | | + + + + + | [facility] | [address] | [place] [address] | | | SERVICES, HOMERO | [address] | | | + + + + + INR (12/20/2012 8:39 AM PDT) + +-------+ + + + | Component | Value | Ref Range | Performed | Pathologist | | | | | At | Signature | + +-------+ + + + | INR | 0.98 | 0.90 - 1.20 INR | [facility] | | | | | | LABORATORY | | | | | | SERVICES, | | | | | | CORE | | + +-------+ + + + + + | Specimen | + + | Blood - Blood | + + + + + | Narrative | Performed At | + + + | INR Therapeutic ranges for full anticoagulation: INR for | [facility] | | Venous Thromboembolism (2.0 - 3.0) INR INR for | LABORATORY | | most patients with mech. valves (2.5 - 3.5) INR | [facility] | + + + + + + + + | Performing | Address | City/State/Zipcode | Phone Number | | Organization | | | | + + + + + | [facility] | [address] | [place] [address] | | | SERVICES, HOMERO | [address] | | | + + + + + HSV ANTIBODY, SERUM (12/20/2012 8:39 AM PDT) + + + + + + | Component | Value | Ref Range | Performed | Pathologist | | | | | At | Signature | + + + + + + | HSV 1/2 IGG | >22.40Comment: | IV | [facility] | | | ANTIBODY | INTERPRETIVE | | REG UNIV | | | | INFORMATION: HSV 1/2 | | PTH - INTFC | | | | COMBINED Ab SCREEN, IgG | | | | | | 0.89 IV or | | | | | | less.........Not | | | | | | Detected 0.90-1.09 | | | | | | IV............Indetermin | | | | | | ate- Repeat testing | | | | | | | | | | | | in 10-14 days | | | | | | may be helpful. 1.10 | | | | | | IV or | | | | | | greater......Detected | | | | | | The best evidence for | | | | | | current infection is a | | | | | | significantchange on two | | | | | | appropriately timed | | | | | | specimens, where | | | | | | bothtests are done in | | | | | | the same laboratory at | | | | | | the same time. | | | | + + + + + + | HSV 1/2 IGM | 0.55Comment: | <=0.89 IV | [facility] | | | ANTIBODY | INTERPRETIVE | | REG UNIV | | | | INFORMATION: Herpes | | PTH - INTFC | | | | Simplex Virus Type | | | | | | 1and/or 2 Antibodies, | | | | | | IgM by MICHAEL 0.89 IV | | | | | | or Less .......... Not | | | | | | Detected 0.90 - 1.09 | | | | | | IV ........... | | | | | | Indeterminate- Repeat | | | | | | testing in | | | | | | | | | | | | 10-14 days may be | | | | | | helpful. 1.10 IV or | | | | | | Greater ....... | | | | | | Detected-IgM antibody to | | | | | | HSV | | | | | | | | | | | | detected, which may | | | | | [...] months | | | | | | post-infection.Performed | | | | | | by [facility] | | | | | | Laboratories,[address] | | | | | | [place] [address] | | | | | | [phone]. | | | | | | Faisal [...] [facility] | [address] | [place], [place] | | | UNIV PTH - INTFC | | [address] | | + + + + + HIV-1,2 AB/HIV-1 P24 AG SCRN, SERUM (12/20/2012 8:39 AM PDT) + + + + + [...] | + + + + + | [facility] | [address] | [place] [address] | | | SERVICES, SPECIAL | [address] | | | | IMM + COAG | | | | + + + + + HEPATITIS C QUANTITATIVE, PLASMA (12/20/2012 8:39 AM PDT) + + + + + + | Component | Value | Ref Range | Performed | Pathologist | | | | | At | Signature | + + + + + + | HEP C PCR, | Undetected | IU/mL | [facility] | | | QUANT | | | DIAGNOSTIC | | | | | | | | | | | | LABORATORIE | | | | | | S | | + + + + + + + + | Specimen | + + | Blood - Blood | + + + + + | Narrative | Performed At | + + + | Reportable Range: 43-69,000,000 IU/mL These results are | [facility] | | most likely indicative of the absence of HCV viral infection and the | DIAGNOSTIC | | absence of HCV viremia. These results do not, however, rule out the | LABORATORIES | | presence of low-level HCV viremia below the assay's lower sensitivity | | | limit of 7 IU/mL for HCV genotype 1, 15 IU/mL for genotype 2, and 10 | | | IU/mL for genotype 3. | | + + + + + + + + | Performing | Address | City/State/Zipcode | Phone Number | | Organization | | | | + + + + + | [facility] | [address] | [place] [address] | | | DIAGNOSTIC | [address] | | | | LABORATORIES | | | | + + + + + HEPATITIS B SURFACE AG, SERUM (12/20/2012 8:39 AM PDT) + + + + + + | Component | Value | Ref Range | Performed | Pathologist | | | | | At | Signature | + + + + + + | HEPATITIS B | Negative | Negative | [facility] | | | SURFACE | | | [facility] - | | [...] + | [facility] | [address] | [place] [address] | | | [place] | | | | + + + + + HEPATITIS B SURFACE AB QUAL, SERUM (12/20/2012 8:39 AM PDT) + + + + + + | Component | Value | Ref Range | Performed | Pathologist | | | | | At | Signature | + + + + + + | HEP B | Positive (A) | Negative | [facility] | | [...] + | [facility] | [address] | [place] [address] | | | [place] | | | | + + + + + HEPATITIS B CORE AB, SERUM (12/20/2012 8:39 AM PDT) + + + + + + | Component | Value | Ref Range | Performed | Pathologist | | | | | At | Signature | + + + + + + | HEPATITIS B | Negative | Negative | [facility] | | | CORE AB, | | | AIRPORT - | | [...] + | [facility] | [address] | [place] [address] | | | [place] | | | | + + + + + HEPATITIS A AB SCREEN, SERUM (12/20/2012 8:39 AM PDT) + + + + + + | Component | Value | Ref Range | Performed | Pathologist | | | | | At | Signature | + + + + + + | HEPATITIS A | Negative | Negative | [facility] | | | AB TOTAL | | | AIRPORT - | | [...] + | [facility] - | [address] | [place] [address] | | | [place] | | | | + + + + + JUNE WYMAN VIRUS AB VCA IGG, SERUM (12/20/2012 8:39 AM PDT) + + + + + + | Component | Value | Ref Range | Performed | Pathologist | | | | | At | Signature | + + + + + + | JUNE | 150.0 (H)Comment: | 0.0 - 21.9 U/mL | [facility] | | | WYMAN VIRUS | INTERPRETIVE | | REG UNIV | | | AB VCA IGG | INFORMATION: | | PTH - INTFC | | | | June-Wyman Virus | | | | | | Antibody toViral Capsid | | | | | | Antigen, IgG 17.9 U/mL | | | | | | or less......Not | | | | | | Tamlimfx94.0-21.9 | | | | | | U/mL.........Indetermina | | | | | | te - Repeat testing in | | | | | | 10-14 | | | | | | days may | | | | | | be helpful.22.0 U/mL or | | | | | | greater...Detected | | | | | | Interpretive information | | | | | | regarding serologic | | | | | | features | | | | | | ofEBV-associated | | | | | | diseases is available | | | | | | [email or web address] | | | | | | vdx.Performed by [facility] | | | | | | Laboratories,[address] | | | | | | [place], [place] [address] | | | | | | [phone].Artify Ituplab. | | | | | | Faisal [...] [facility] | [address] | [place], [place] | | | UNIV PTH - INTFC | | [address] | | + + + + + CULTURE, URINE BACTI (12/20/2012 8:39 AM PDT) + + + + + + | Component | Value | Ref Range | Performed | Pathologist | | | | | At | Signature | + + + + + + | SPECIMEN | Urine | | [facility] | | | TYPE | | | [facility] - | | | | | | [place] | | + + + + + + | SOURCE BODY | Urine | | [facility] | | | SITE | | | [facility] - | | | | | | [place] | | + + + + + + | CULTURE | C UrineSource: Urine | | [facility] | | | RESULT | | | [facility] - | | | | Final CULTURE | | [place] | | | | RESULT:No growth (<1000 | | | | | | col/ml) after 24 hours | | | | + + + + + + + + | Specimen | + + | Urine - Urine | + + + + + + + | Performing | Address | City/State/Zipcode | Phone Number | | Organization | | | | + + + + + | [facility] | [address] | [place] [address] | | | [place] | | | | + + + + + COMPLETE METABOLIC SET (NA,K,CL,CO2,BUN,CREAT,GLUC,CA,AST,ALT,BILI TOTAL,ALK PHOS,ALB,PROT TOTAL) (12/20/2012 8:39 AM PDT) + + + + + [...] + + + | BUN, PLASMA | 49 (H) | 6 - 20 mg/dL | [facility] | | | (LAB) | | | LABORATORY | | | | | | SERVICES, | | | | | | CORE | | + + + + + + | CREATININE | 7.27 (H) | 0.46 - 0.81 | [facility] | | | PLASMA | | mg/dL | LABORATORY | | | (LAB) | | | SERVICES, | | | | | | CORE | | + + + + + + | SODIUM, | 141 | 136 - 145 | [facility] | | | PLASMA | | mmol/L | LABORATORY | | | (LAB) | | | SERVICES, | | | | | | CORE | | + + + + + + | POTASSIUM, | 3.5 | 3.4 - 5.0 | [facility] | | | PLASMA | | mmol/L | LABORATORY | | | (LAB) | | | SERVICES, | | | | | | CORE | | + + + + + + | CHLORIDE, | 106 | 97 - 108 mmol/L | [facility] | | | PLASMA | | | LABORATORY | | | (LAB) | | | SERVICES, | | | | | | CORE | | + + + + + + | TOTAL CO2, | 22 | 21 - 32 mmol/L | [facility] | | | PLASMA | | | LABORATORY | | | (LAB) | | | SERVICES, | | | | | | CORE | | + + + + + + | CALCIUM, | 8.7 | 8.6 - 10.2 | [facility] | | | PLASMA | | mg/dL | LABORATORY | | | (LAB) | | | SERVICES, | | | | | | CORE | | + + + + + + | BILIRUBIN | 0.3 | 0.3 - 1.2 mg/dL | [facility] | | | TOTAL | | | LABORATORY | | | | | | SERVICES, | | | | | | CORE | | + + + + + + | TOTAL | 7.5 | 6.4 - 8.2 g/dL | [facility] | | | PROTEIN, | | | LABORATORY | | | PLASMA | | | SERVICES, | | | (LAB) | | | CORE | | + + + + + + | ALBUMIN, | 3.4 (L) | 3.5 - 4.7 g/dL | [facility] | | | PLASMA | | | LABORATORY | | | (LAB) | | | SERVICES, | | | | | | CORE | | + + + + + + | ALK PHOS | 173 (H) | 42 - 110 U/L | [facility] | | | | | | LABORATORY | | | | | | SERVICES, | | | | | | CORE | | + + + + + + | AST(SGOT) | 15 | 15 - 41 U/L | [facility] | | | | | | LABORATORY | | | | | | SERVICES, | | | | | | CORE | | + + + + + + | ALT (SGPT) | 36 | 12 - 60 U/L | [facility] | | | | | | LABORATORY | | | | | | SERVICES, | | | | | | CORE | | + + + + + + | ANION | 14 (H) | 4 - 11 mmol/L | [facility] [...] + + + | ANION GAP | 13 | mmol/L | [facility] | | | | | | LABORATORY | | | | | | SERVICES, | | | | | | CORE | | + + + + + + + + | Specimen | + + | Blood - Blood | + + + + + | Narrative | Performed At | + + + | New reference range effective 2012 for Total proteins | [facility] | | performed in Core Lab only. | LABORATORY | | | SERVICES, [place]OM[place] | + + + + + + + + | Performing | Address | City/State/Zipcode | Phone Number | | Organization | | | | + + + + + | [facility] | [address] | [place] [address] | | | SERVICES, [place]OM[place] | [address] | | | + + + + + CMV IGG AND IGM ABS, SERUM (12/20/2012 8:39 AM PDT) + + + + + + | Component | Value | Ref Range | Performed | Pathologist | | | | | At | Signature | + + + + + + | CMV IGG AB | 8.70Comment: | U/mL | [facility] | | | [...] | | | | | (IgG or IgMantibody | | | | | | titers) may not be | | | | | | reliable and may be | | | | | | misleadingin the | | | | | | diagnosis of acute or | | | | | | reactivation CMV | | | | | | disease. Thepreferred | | | | | | method for diagnosis is | | | | | | culture of virus | | | | | | and/ordemonstration of | | | | | | viral antigen in | | | | | | peripheral white | | | | | | cells(buffy coat), | | | | | | bronchoalveolar lavage | | | | | | (BAL) cells, or | | | | | | tissuebiopsies. The best | | | | | | evidence for current | | | | | | infection is a | | | | | | significantchange on two | | | | | | appropriately timed | | | | | | specimens, where | | | | | | bothtests are done in | | | | | | the same laboratory at | | | | | | the same time. | | | | + [...] | | | | | | active orreactivated | | | | | | infection in | | | | | | immunocompromised | | | | | | patients.Molecular | | | | | | diagnostic tests (i.e. | | | | | | PCR)are preferred in | | | | | | thesecases.Performed by | | | | | | [facility],[address] | | | | | | [address], [facility] [place] | | | | | | [address] | | | | | | [phone].Mobile Captain. | | | | | | Faisal [...] [facility] | [address] | [place], [place] | | | UNIV PTH - INTFC | | [address] | | + + + + + CHOLESTEROL TOTAL, PLASMA (12/20/2012 8:39 AM PDT) + +-------+ + + + | Component | Value | Ref Range | Performed | Pathologist | | | | | At | Signature | + +-------+ + + + | CHOLESTEROL | 195 | <200 mg/dL | [facility] | | | (LAB) [...] [facility] | [address] | [place] [address] | | | SERVICES, CORE | [address] | | | + + + + + BILIRUBIN DIRECT (12/20/2012 8:39 AM PDT) + +---------+ + + + | Component [...] + + + + + | [facility] | [address] | [place] [address] | | | SERVICES, CORE | [address] | | | + + + + + APTT (ACT. PART. THROMBO TIME) (12/20/2012 8:39 AM PDT) + +-------+ + + + | Component | Value | Ref Range | Performed | Pathologist | | | | | At | Signature | + +-------+ + + + | APTT | 29.8 | 26.0 - 36.0 | [facility] | | | | | seconds | LABORATORY | | | | | | SERVICES, | | | | | | CORE | | + +-------+ + + + + + | Specimen | + + | Blood - Blood | + + + + + | Narrative | Performed At | + + + | APTT Therapeutic Range: (75 - | [facility] | | 120) sec Heparin levels of 0.35 - 0.7 U/mL | LABORATORY | | | [address] | + + + + + + + + | Performing | Address | City/State/Zipcode | Phone Number | | Organization | | | | + + + + + | [facility] | [address] | [place] [address] | | | [address] | [address] | | | + + + + + documented in this encounter Visit Diagnoses + + | Diagnosis | + + | 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
--- OUTSIDE RECORDS SUMMARY | 2019-12-25 21:29 | XMS | Encounter Summary ---
Demographics + + + | Address | [address] | | | [place] [address] | + + + | Home Phone | | + + + | Preferred Language | Unknown | + + + | Marital Status | Single | + + + | Jainism Affiliation | Unknown | + + + [...] | | | | | [place] [address] | | + + + + + | Thania Mallory | ECON | [address] | | | | | [place] [address] | | + + + + + | Deidra Weldon | ECON | [address] | | | | | [place] | | | | | [address] | | + + + + + Care Team Providers + +------+ + | Care Ice Bag Assembler Name | Role | Phone | + +------+ + | Shahid Camargo MD | PCP | | + +------+ + Reason for Visit Consultation (Routine) +--------+--------+ + + + + | Status | Reason | Specialty | Diagnoses / | Referred By | Referred To | | | | | Procedures | Contact | Contact | +--------+--------+ + + + + | Closed | | Kidney | Diagnoses | Rufino, | Mayito, | | | | Transplant | End stage | Sudhakar Castellanos, | MD Jesus | | | | | renal | [address] | | | | | disease | Shun Griffin | Elias Elizondo | | | | | ([facility]) | [address] | [address], | | | | | Allergic | [place], [place] | [place] | | | | | purpura | [address] | [address] | | | | | ([facility]) | Phone: | Phone: | | | | | | [phone] | [phone] | | | | | | Fax: | Fax: | | | | | | [phone] | [phone] | +--------+--------+ + + + + Encounter Details +--------+ + + + + | Date | Type | Department | Care Team | Description | +--------+ + + + + | 12/20/ | Hospital | Radiology at [facility] | | | | 2012 | Encounter | [address] | | | | | | [place] | | | | | | [facility], | | | | | | 7th floor | | | | | | [place], [place] | | | | | | [address] | | | | | | [phone] | | | +--------+ + + + [...] Denise | | | | | | [place], [place] | | | | | | [address] | | | | | | [phone] | | | | | | | | +--------+ + + + + documented as of this encounter Procedures + +--------+ + + + | Procedure Name | Priori | Date/Time | Associated Diagnosis | Comments | | | ty | | | | + +--------+ + + + | US ABDOMEN COMPLETE | Routin | 12/20/2012 | Allergic purpura- | Results for this | | | e | 9:58 AM | MEDICARE 1085 | procedure are in the | | | | PDT | | results section. | + +--------+ + + + documented in this encounter Results US ABDOMEN COMPLETE (12/20/2012 9:58 AM PDT) + + + + + + | Component | Value | Ref Range | Performed | Pathologist | | | | | At | Signature | + + + + + + | US ABDOMEN | EXAM: US ABDOMEN | | | | | COMPLETE | COMPLETE HISTORY: | | | | | | Pre-renal transplant | | | | | | work up. Chronic | | | | | | kidney disease. | | | | | | COMPARISON: None | | | | | | FINDINGS:The liver is | | | | | | normal in size and | | | | | | echogenicity. No focal | | | | | | intrahepatic lesions | | | | | | areseen. Portal vein | | | | | | diameter is 9 mm. There | | | | | | is no intra- or | | | | | | extra-hepatic biliary | | | | | | duct dilatation. The | | | | | | common bileduct measures | | | | | | 2.5 mm in diameter. The | | | | | | gallbladder is normal | | | | | | in appearance, without | | | | | | stones, sludge, | | | | | | muralthickening, | | | | | | pericholecystic fluid, | | | | | | or sonographic Castorena | | | | | | sign. The pancreas is | | | | | | not well seen, obscured | | | | | | by bowel gas. The spleen | | | | | | is homogeneous in | | | | | | echogenicity and normal | | | | | | in size, measuring 11.8 | | | | | | cmin length. The kidneys | | | | | | are echogenic, with | | | | | | lobulated contours and | | | | | | areas of | | | | | | parenchymalthinning that | | | | | | may reflect presence of | | | | | | scarring. Right | | | | | | kidney measures 8.7 cm | | | | | | x3.8 cm x 4.6 cm and has | | | | | | a volume of 79 ml. | | | | | | Right renal length is | | | | | | below 5thpercentile for | | | | | | patient age. Left kidney | | | | | | measures 10 cm x 3.4 cm | | | | | | x 4.7 cm andhas a | | | | | | volume of 84 ml. Left | | | | | | renal length is between | | | | | | 5th and 50th | | | | | | percentilesfor patient | | | | | | age. There is no | | | | | | hydronephrosis. A | | | | | | moderate volume of free | | | | | | fluid is present, | | | | | | potentially related to | | | | | | peritonealdialysis. | | | | | | Imaged portions of | | | | | | aorta and inferior vena | | | | | | cava are unremarkable. | | | | | | Urinary bladder is | | | | | | normal in appearance, | | | | | | though incompletely | | | | | | distended.Bladder volume | | | | | | measures up to 16 mL | | | | | | during the examination. | | | | | | After voiding, itis | | | | | | completely empty. | | | | | | IMPRESSION: Echogenic | | | | | | kidneys, right smaller | | | | | | than left, in keeping | | | | | | with history of | | | | | | chronicrenal disease. | | | | | | Peritoneal fluid, | | | | | | likely related to | | | | | | dialysis. | | | | | | Otherwiseunremarkable | | | | | | examination. END | | | | | | IMPRESSION Attending | | | | | | Radiologists: NELSON | | | | | | STEFAN PINEDAuthor: | | | | | | NELSON PINEDA MD I | | | | | | have personally viewed | | | | | | this procedure/exam, | | | | | | reviewed this report, | | | | | | and madechanges to it | | | | | | where appropriate. 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
--- OUTSIDE RECORDS SUMMARY | 2019-12-25 21:30 | XMS | Encounter Summary ---
Demographics + + + | Address | [address] | | | [place] [address] | + + + | Home Phone [...] | | | | | [place] [address] | | + + + + + | Thania Mallory | ECON | [address] | | | | | [place] [address] | | + + + + + | Deidra Weldon | ECON | [address] | | | | | [place] | | | | | [address] | | + + + + + Care Team Providers + +------+ + | Care Merchandiser Retail Representative Name | Role | Phone | + [...] | +--------+ + + + + | 11/23/ | Documentati | Clinical | Kelsi Martinez, | Transplant Form | | 2012 | on | Transplant Services | RN [address] | Update | | | | [address] | [facility] | | | | | [address] [place], | [place], [place] | | | | | [place] [address] | [address] | | | | | [phone] | | | +--------+ + + + [...] Denise | | | | | | [place] | | | | | | [address] | | | | | | [phone] | | | | | | | | +--------+ + + + + documented as of this encounter Visit Diagnoses Not on filedocumented in this encounter"
--- OUTSIDE RECORDS SUMMARY | 2019-12-25 21:30 | XMS | Encounter Summary ---
Demographics + + + | Address | [address] | | | [place] [address] | + + + | Home Phone | | + + + | Preferred Language | Unknown | + + + | Marital Status | Single | + + + | Orthodox Affiliation | Unknown | + + [...] | | | | | [place] [address] | | + + + + + | Thania Mallory | ECON | [address] | | | | | [place] [address] | | + + + + + | Deidra Weldon | ECON | [address] | | | | | [place] | | | | | [address] | | + + + + + Care Team Providers + +------+ + | Care Commercial Insurance Underwriter Name | Role | Phone | + +------+ + | Shahid Camargo MD | PCP | | + +------+ + Encounter Details +--------+ + + + + | Date | Type | Department | Care Team | Description | +--------+ + + + + | 12/19/ | Documentati | [place] Inpatient | Juan David Batres, | | | 2012 | on IP | Pharmacy [address] | PharmD [address] | | | | | [address] | [facility] | | | | | [place], [place] | [place] [address] | | | | | [address] | [phone] | | | | | | | [...] documented as of this encounter Progress Notes Juan David Batres PharmD - 12/26/2012 9:15 AM PDTFormatting of this note might be different fro m the original. 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 The patient s most recent medication information was obtained from patient and her family Pharmacy Preferences: [id number] [place] [address] Updated Outpatient Medications: Current Medication List Name Sig CALCITRIOL 0.25 MCG CAPSULE Take 0.5 mcg by mouth once daily. DOCUSATE SODIUM 100 MG CAPSULE Take 100 mg by mouth two times daily. EPOETIN JOYCE INJ by Injection route. FERROUS SULFATE 325 MG (65 MG IRON) TABLET Take 325 mg by mouth two times daily. DIALYVITE ORAL Take 1 tablet by mouth once daily. SEVELAMER CARBONATE 800 MG TABLET Take 2,400 mg by mouth three times daily. LABORATORY VALUES Chemistry Lab Results Lab Test Name Results Date/Time GLU 93 12/20/12 BUN 49 12/20/12 CR 7.27 12/20/12 PO4 5.4 12/20/12 MG 2.6 12/20/12 CA 8.7 12/20/12 TBILI 0.3 12/20/12 AST 15 12/20/12 ALT 36 12/20/12 K 3.5 12/20/12 ALB 3.4 12/20/12 CBC Lab Results Lab Test Name Results Date/Time WBC 6.40 12/20/12 HCT 30.4 12/20/12 PLT 248 12/20/12 Urine Lab Results Lab Test Name Results Date/Time URINEPROTEIN >=500.0 12/20/12 URINEGLUCOSE 50.0 12/20/12 URINEWBC 7 12/20/12 URINEREDCELL 39 12/20/12 URINEBACTERI Few 12/20/12 Assessment/Recommendations: 1. Medication review was completed. Recipient is a high risk but acceptable candidate for a kidney transplant. Her risks are non- adherence relatted to age and obesity (BMI of 36). The potential risks and benefits of transplantation were reviewed with the patient. She was advised for weight control. PLAN: We will continue the evaluation and discuss in the Transplant Selection Conference. A total of 15 minutes were spent reviewing the patient's medications for pre-transplant zachary conn. For any further questions regarding this information contact pharmacy, pager #[phone] Thank you, Juan David Batres Pager [phone] signed by Juan David Batres, PharmD at 12/26/2012 9:18 AM PDTdocumented in this encounter Plan of Treatment +--------+ + + + + | Date | Type | Specialty | Care Team | Description | +--------+ + + + + | 05/04/ | Hospital | Adult Acute Care | El Starr MD | | | 2022 | Encounter | | [address] | | | | | | [place], [place] | | | | | | [address] | | | | | | [phone] | | | | | | | | +--------+ + + + + documented as of this encounter Visit Diagnoses Not on filedocumented in this encounter"
--- OUTSIDE RECORDS SUMMARY | 2019-12-25 21:30 | XMS | Encounter Summary ---
Demographics + + + | Address | [address] | | | [place] [address] | + + + | Home Phone [...] Author + + + | Author | [facility] | + + + | Organization | [facility] | + + + | Address | Unknown | + + + | Phone | Unavailable | + + + Support + + + + + | Name | Relationship | Address | Phone | + + + + + | Cory Wel[place] | ECON | [address] | | | | | [place] [address] | | + + + + + | Thania Mallory | ECON | [address] | | | | | [place] [address] | | + + + + + | Deidra Weldon | ECON | [address] | | | | | [place] | | | | | [address] | | + + + + + Care Team Providers + +------+ + | Care Manager Programming Name | Role | Phone | + +------+ + | Shahid Camargo MD | PCP | | + +------+ + Reason for Visit + +--------+ + | Reason | Onset | Comments | | | Date | | + +--------+ + | Candidate donor | 11/26/ | | | | 2012 | | + +--------+ + Encounter Details +--------+ + + + + | Date | Type | Department | Care Team | Description | +--------+ + + + + | 11/26/ | Telephone | Clinical | Kelsi Martinez, | Candidate donor | | 2012 | | Transplant Services | RN [address] | | | | | [address] | [facility] | | | | | [place], | [place], [place] | | | | | [place] [address] | [address] | | | | | [phone] | | | +--------+ + + + [...] Telephone Encounter - Kelsi Martinez RN - 11/26/2012 8:07 AM PDTReceived voice mail fro m pt stating that it is okay to proceed with working up her father as a potential donor. Wi ll notify the donor coordinator to start the process. documented in this encounter Plan of Treatment +--------+ + + + + | Date | Type | Specialty | Care Team | Description | +--------+ + + + + | 05/04/ | Hospital | Adult Acute Care | El Starr MD | | | 2022 | Encounter | | [address] | | | | | | [place], [place] | | | | | | [address] | | | | | | [phone] | | | | | | | | +--------+ + + + + documented as of this encounter Visit Diagnoses Not on filedocumented in this encounter"
--- OUTSIDE RECORDS SUMMARY | 2019-12-25 21:30 | XMS | Encounter Summary ---
Demographics + + + | Address | [address] | | | [place] [address] | + + + | Home Phone [...] | | | | | [place] [address] | | + + + + + | Thania Mallory | ECON | [address] | | | | | [place] [address] | | + + + + + | Deidra Weldon | ECON | [address] | | | | | [place] | | | | | [address] | | + + + + + Care Team Providers + +------+ + | Care School Occupational Therapist Name | Role | Phone | [...] + + | 12/19/ | Documentati | Clinical | Kelsi Martinez, | Transplant Form | | 2012 | on | Transplant Services | RN [address] | Update | | | | [address] | [facility] | | | | | [place], | [place], [place] | | | | | [place] [address] | [address] | | | | | [phone] | | | +--------+ + + + [...] Denise | | | | | | [place] | | | | | | [address] | | | | | | [phone] | | | | | | | | +--------+ + + + + documented as of this encounter Visit Diagnoses Not on filedocumented in this encounter"
--- OUTSIDE RECORDS SUMMARY | 2019-12-25 21:30 | XMS | Encounter Summary ---
Demographics + + + | Address | [address] | | | [place] [address] | + + + | Home Phone [...] + + + | Author | [facility] | + + + | Organization | [facility] | + + + | Address | Unknown | + + + | Phone | Unavailable | + + + Support + + + + + | Name | Relationship | Address | Phone | + + + + + | Cory Weldon | ECON | [address] | | | | | [place] [address] | | + + + + + | Thania Mallory | ECON | [address] | | | | | [place] [address] | | + + + + + | Deidra Weldon | ECON | [address] | | | | | [place] | | | | | [address] | | + + + + + Care Team Providers + +------+ + | Care Fitness Instructor Name | Role | Phone | + +------+ + | Shahid Camargo MD | PCP | | + +------+ + Reason for Visit + + + | Reason | Comments | + + + | Social Work | | | Transplant | | | Evaluation | | + + + Encounter Details +--------+ + + + + | Date | Type | Department | Care Team | Description | +--------+ + + + + | 12/19/ | Documentati | Clinical | Mariza Hsu | Social Work | | 2012 | on | Transplant Services | [address] | Transplant | | | | [address] | [address] | Evaluation | | | | [place], | [place], [place] | | | | | [place] [address] | [address] | | | | | [phone] | | | +--------+ + + + [...] Notes Telephone Encounter - Mariza Hsu - 02/18/2013 1:55 PM PST*this is a late entry no te, documenting a previous contact with pt/family Social Service Renal Transplant Evaluation Purpose of Interview: Dara Weldon is a 17 y.o. female who was interviewed on December 19, 2012 for psychosocia l assessment as part of the renal transplant evaluation. 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 Persons present in interview: mother: Thania and father: Cory. A portion of the interview was conducted with the patient privately. (I spent 60 minutes interviewing the pt/family) Family Background and Current Living Situation: Patient reports she was born in [place], [place] where she lived her whole life except for e past two years, when they moved to [place], [place]. She currently lives in [place] with h er father and step mother. Patient's parents, Thania (44) and Cory "Clayton" (41) were for nine years and divo rced about seven years ago. Thania reports she has asthma, takes medications for depressio n, is a smoker but otherwise is stable and independent. She lives in [place] and has a boyfri end who took this trip with her but did not participate in this interview. Clayton and Thania have one other child together, a son named Kush (15) who currently lives with [facility], in [place], [place]. Clayton a woman named Deidra in August 2012. She is in stable health and did not come on this trip to [facility]. Clayton says he has a long history of chew ing tobacco and has been a heavy drinker, however is changing both behaviors to help him be an eligible kidney donor for Dara. Otherwise Clayton claims to be in stable health. Patient has three older half-siblings on his father's side: Willie (21), Coral (19) and Jai bishop (18) as well as two older half-siblings on her mother's side: Saundra (23) and Miguel zendejas (21). A few of these siblings are and they live in their own but in the same area as Dara. She is relatively close to them, some more than others. Dara was always rais ed by her father since the couple's divorce and she still lives with her father and now step mother; they live in a duplex. They have two dogs and three cats but Dara does not deal with the litter box at all. Dara spends some time visiting her mother but nothing formal or consistently; Dara and her father/step mother tell me this is her preference. Dara Weldon is single, not dating anyone and has never had any children. Potential donors: dad, Clayton. 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 She is receiving passing grades bu t misses some classes due to being on home dialysis, not many though. Her favorite subject is Andorran and she has joined the [employer] group for the first time and is really enjoying it, actually will be in her first performance early next month. She states she has understandin g, supportive teachers who are aware of her health issues. One who "is hard on me" but her parents don't view that as a negative thing. Patient is not working at this time; she is unsure her plans after graduating high school. Father's Employed: yes. Where: [employer] as an gold frame assembler; he works an average of 32 hrs p er week. How Long: been there for 1.5 years. Stepmother's Employed: yes. 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 Where: Thania works as a medical assistant dermatology full-time; How Long : been there for 2.5 years. History: Neither parent has served in the Financial/Insurance Information: Father reports patient receives about $698 of SSI per month, plus income from his job. Say pierce gives the patient some support. The family does not receive food stamps. Clayton states they are "barely" managing financially to meet needs without money left over after bills are paid. We discussed the financial implications regarding transplantation. Current financia l concerns include:none but family was encouraged to try to fund-raise or save funds to cove r the non-reimbursed expenses for the post-tx stay. They were given brochure for [facility]. Next steps regarding financial issues: none. Patient's insurance currently is Medicare and Medicaid and is obtained through her SSI, melly kamron's low income and ESRD. They do have some parts of her dialysis care not covered by [place] Medicaid as she goes through a home dialysis unit in [place]. The family uses the [facility] and say they get some help with medications costs by doing so. It is uncle ar why pt isn't using [place] based home dialysis unit as dad reports they live "just [place] far from [place] as [place]." Parents' understanding of her medical insurance benefits is adequa te. She should have fairly comprehensive coverage with the two plans although attention raul uld be paid to using services and pharmacies in [place] if possible. We discussed the high costs of immunosuppressive medications and the limitations of the Med icare benefit. We also discussed the basics of the Medicare prescription drug plan. The [facility] ESRD booklet for children was provided to the family for their review. Patient will no t retain lifetime Medicare benefit due to age or disability. In addition, the patient was m lucy aware of the importance of maintaining ongoing, comprehensive medical coverage. I reviewed that maintaining SSI/Medicaid also depended on their income each month, somethin g they were aware of and keeping close track of, but that a successful transplant could also mean she may lose medical eligibility for SSI as early as one year post-tx, something the blaire scanlon was not aware of. We reviewed some options of coverage if she loses Medicaid, includrashaun cueva having income based OHP or purchasing supplemental Medicare coverage until 3 years post-t x or getting other [place] plans. Family was encouraged to keep in very close contact w ith us about any possible future changes, early in the process. Dara was encouraged to co zach to learn about this important topic of health insurance. Activities Information: Leisure Activities: Patient plays drums and clarinet in school band, likes drama and actin g; goes camping and hunting with her father however describes herself as mostly a "homebody" . She does not yet have her ODL. She does not go out as much due to the time demands of h ome dialysis. Patient/family understand there will be some physical limitations until fully recovered from transplant surgery. Spiritual/Anglican Affiliation: none Community/Social Involvement: School events (band and drama) Relevant Medical History: Patient is on peritoneal dialysis. She started May 2012. She runs between 8:30pm - 6:00a m. So far the pt/family denies any episodes of infections, no peritonitis and no major comp lications related to being on dialysis. Patient's relevant medical history is limited to ki dney problems which they have known about and been trying to manage for years prior to her h aving to start dialysis. Substance Use & Legal Issues: Patient's Drug Use: none. Drug(s) used: none. Patient's Alcohol Use: none. Patient denies problems resulting from alcohol use. Drug and Alcohol Treatment History:none. Patient's Tobacco Use: none Patient's Legal History: None I educated Dara privately on the importance of complete abstinence from illegal drugs due to the negative impact on a kidney transplant, more devastating potential consequences than for typical anti-drug use messages. She agreed. Dara does not like being around her nicolas lundberg for this reason in part. I also gave her warning ahead of time that while experimentation with alcohol is common, to avoid abuse and intoxication in the future for impact on medicat ion interactions, judgment and other transplant specific risks. Patient agreed with these ca utions. Father's Drug Use: none Father's Alcohol Use: "cut down" to average of 10 beers per week; he used to drink twice th at amount regularly. He cut back due to wanting to become a donor and for his overall healt h. Father's Tobacco Use: He uses chewing tobacco long-term but plans to quit for donation Father's Legal History: Clayton had DUI but states that was 10 years ago. He also had some t [facility] in [facility] over 10 years ago for an assault charge related to etoh. He spent only a brief t [place]te in [facility] and has no legal problems currently. Patient disclosed that her step mom, Deidra, got a DUI within this past year. Deidra also smokes cigarettes but does so outside the house. Mother's Drug Use: Thania admits she regularly smokes marijuana for recreational purposes. She does not plan to quit but asked if patient "should not be around it it or just not smo ke it herself" and was educated Dara should not even be exposed to second hand tobacco nor marijuana smoke and the health reasons why after transplant being immunosuppressed. Mother's Alcohol Use: not disclosed but reported to be non-problematic. Mother's Tobacco Use: smokes cigarettes Mental Health Issues: We discussed the possibility of mood swings while on prednisone. Patient reports family hi story of depression in her mother but she does not struggle with mood problems out of the or dinary high school typical issues. She denies depression, anxiety and does not have SA/SI t emory or in the past. She does not take any medications for mental health, does not see a co unselor and has never been admitted due to psychiatric problems. Patient found it difficult around the time of her parents divorce, which she does not readi ly share with her mother however she feels she is "easy going" and doesn't let her health pr oblems bother her too much. She did admit to feeling somewhat overwhelmed by the serious breanne ure of having a transplant. Family's Understanding of Illness: Patient has a fair understanding of her disease and management. Family says she has taken CellCept and prednisone to treat her HSP and that she was diagnosed "more than seven years a go" with kidney problems and they have seen a automotive parts manager for care. Dara and sebastian er parents (father, mother and stepmother) say she is doing fair on home dialysis, finds it sometimes hard to follow the diet strictly and does not always take her medications but she is "better than she used to be." Dara admits when pressed she forgets to take her "night ones" despite reminders from parents to do so. We strategized on how to improve this and I stressed the importance of strict compliance in post-tx period which they all state they bel ieve she will do "after transplant." Other aspects of her home dialysis are going well, n o infections, no hospitalizations; stable on her runs, not missing or shortening dialysis ru ns. Family's Understanding of Transplantation: Patient and her parents attended the Transplant Education Class. They were each able to dem onstrate understanding of relevant material presented in the class. They asked appropriate questions regarding the transplant process. Family understands transplantation is a treatme nt option and not a cure. They share reasons for seeking transplant are to have a higher qu ality of life as a teenager off dialysis, get off the machine, be able to stay away from the house overnight with friends or family and to more fully participate in activities she enjo ys. We reviewed the driving and lifting restrictions following transplant surgery; she stat es she is able to comply for as long as necessary. I reviewed the serious consequences of non-compliance post-tx, including delaying or possib ly preventing a subsequent transplant. The patient and parents verbalize they understand th e severity of this issue. They all state the patient will comply post-transplant with takin g medications as prescribed, but did not have clear, specific plan on how to improve her beh avior with meds now which they all admit is lacking at times. They say she has no difficult y attending medical appointments or with getting labwork done. Post Hospital Care Plans: Patient does not live within an acceptable distance from [facility] and plans on exactly where th ey will recover are uncertain at this time and depend upon whether her father is her donor o r not. If he is not, he will be her primary support. If he is, there will likely be a combi nation of pt's mom, pt's step om who would probably do "weekly shifts." The family may or m ay not be able to use the local [employer] where patient and her father are stayi ng this trip due to house guidelines and who is staying. Patient also expressed hesitation in private of being fully comfortable with her mother as a primary skin care consultant because in par t of her behavior and their relationship strain although patient denies feeling unsafe with her mother, just not always comfortable. They have an aunt who lives in [place], [place]. The y have some funds for travel expenses through [place] Medicaid to use towards costs. We reviewed the importance of having an adequate support team of caregiver(s) to assist in the recovery process post-hospital discharge. Family is aware of the needs and will create an acceptabl e post-hospital care plan before proceeding depending on dad's donation plan. Observations: Since this was my initial meeting with the family, they took some time to build rapport but were fairly quickly engaged, very open with rather personal information and were polite, ki nd and caring towards patient and cordial towards one another. Dara is clearly loved and they have been managing her kidney issues over time and have noted both challenges in her ad herence and improvement more recently. The family has confidence she can continue to improv e post-tx with taking medications and they all know the reasons why this is so crucial for g raft survival. Dara needs to continue to mature and learn and possibly post-tx education pre-tx would benefit her on the level of what to expect afterwards. Family is low income ho wever making it and patient has dual-eligible comprehensive insurance for care in [place] rel ated to transplant and post-tx care/meds. The family has some substance use issues, both hi storical and more current but patient does not seem to be tempted to engage in such behavior s herself and her parents are functioning at present. The family needs to further develop a post-hospital care plan, giving the details, especially in the event Clayton becomes Dara's living donor. Impression: Low Risk 1; Moderate Risk 2; High Risk 3; Absolute Contraindication 4 Social Support Score: 1-2 Identified Strengths/Risks: [place] family, some behavioral issues and more questions if da d is not her primary support in post-tx period Financial/Insurance Score: 1-2 Identified Strengths/Risks: Low income and struggling financially, high medical costs for care in [place], pt has comprehensive dual-eligible insurance with low OOP; travel expenses may n ot cover month after fully Compliance Score: 2-3 Identified Strengths/Risks: Pt has hx of poor adherence behavior, improved per parents but still not taking all medications despite their reminder and prompting, no clear reasons why ; in higher risk age group now Functional Status Score: 1 Identified Strengths/Risks: No issues noted Cognitive Functioning Score: 1 Identified Strengths/Risks: No isssues noted, family/pt attentive and demonstrated learnin g material Mental Health Score: 1 Identified Strengths/Risks: Some family hx, none for patient who seems well adjusted sarah williams Coping Skills Score: 1-2 Identified Strengths/Risks: Patient seems easy going but can be stressed and overwhelmed b y social situations, some stress exist in her parental relationships long-term with mother Substance Use Score: 1-2 Identified Strengths/Risks: No evident issues for pt at present; however father has heavie r use of etoh more in past, but on-going, yet significantly cut back. Her mother smokes mar ijuana regularly despite this bothering patient, so environment places pt at some increased risk Legal Issues Score: 1 Identified Strengths/Risks: No current issues known Understanding of Transplant process Score: 1 Identified Strengths/Risks: Pt/family seemed to have good knowledge of what to expect, cla ss material, knew about risk and benefits Motivation for TX Score: 1 Identified Strengths/Risks: Pt been on home dialysis aware of higher quality, increased fr eedom w/tx Plan: The following interventions, follow up or consults are recommended: Dialysis compliance co ntract recommended in pre-tx period; post hospital care plan need development (especially un clear if dad is donor) post-tx education may benefit patient and family in the pre-tx settin g to best prepare them. These interventions will be discussed with peds renal team. Recommediations: Psychosocial Risk Profile: Moderate, transplant outcomes may be impacted by the following psychosocial concerns: poor compliance adolescent age group; uncertain parental support plan for post-hospital stay; [place] ited resources for month long stay in [facility]. From a psychosocial standpoint my concerns are the following: post hospital care plan need s further development, financial plan needs development for post-hospital stay and complianc e with medications on dialysis needs to be adequately addressed for period. This case will be presented and discussed at the Transplant Selection Conference. When the above issues are adequately resolved, the patient appears to be an appropriate can didate for pediatric renal transplant surgery. DORON Ko, SENIOR ASP NET DEVELOPER Pediatric Renal Transplant Microsoft Office Instructor pg. #[phone] documented in this en counter Plan of Treatment +--------+ + + + + | Date | Type | Specialty | Care Team | Description | +--------+ + + + + | 05/04/ | Hospital | Adult Acute Care | El Starr MD | | | 2022 | Encounter | | [address] | | | | | | [place], [place] | | | | | | [address] | | | | | | [phone] | | | | | | | | +--------+ + + + + documented as of this encounter Visit Diagnoses Not on filedocumented in this encounter
--- OUTSIDE RECORDS SUMMARY | 2019-12-25 21:30 | XMS | Encounter Summary ---
Demographics + + + | Address | [address] | | | [place] [address] | + + + | Home Phone [...] + + + | Author | [facility] | + + + | Organization | [facility] | + + + | Address | Unknown | + + + | Phone | Unavailable | + + + Support + + + + + | Name | Relationship | Address | Phone | + + + + + | Cory Weldon | ECON | [address] | | | | | [place] [address] | | + + + + + | Thania Mallory | ECON | [address] | | | | | [place] [address] | | + + + + + | Deidra Weldon | ECON | [address] | | | | | [place] | | | | | [address] | | + + + + + Care Team Providers + +------+ + | Care Marine Reporter Name | Role | Phone | + +------+ + | Shahid Camargo MD | PCP | | + +------+ + Reason for Visit + + + | Reason | Comments | + + + | kidney transplant | | | evaluation | | + + + Consultation (Routine) +--------+--------+ + + + + [...] renal | [address] | | | | | disease | [address] | [address] | | | | | ([facility]) | [address] | [place], | | | | | Allergic | [place], [place] | [place] | | | | | purpura | [address] | [address] | | | | | ([facility]) | Phone: | Phone: | | | | | | [phone] | [phone] | | | | | | Fax: | Fax: | | | | | | [phone] | [phone] | +--------+--------+ + + + + Encounter Details +--------+---------+ + + + | Date | Type | Department | Care Team | Description | +--------+---------+ + + + | 12/19/ | Office | Kidney Transplant | Clinic, [address]tx [address] | Patient on | | 2012 | Visit | at Physician's | [facility] | peritoneal dialysis | | | | [address] | [address] [facility] [place] | (HCC) (Primary Dx); | | | | [address] | [address] | Unspecified | | | | Physician's | | essential | | | | Pavilion, 2nd floor | | hypertension; HSP | | | | [place], [place] | | (Henoch-Schonlein | | | | [address]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; | | | | [phone] | | Obesity (BMI | | | [...] + + + | Blood Pressure | 110/78 | 12/19/2012 2:42 PM | | | | | PDT | | + + + + + | Pulse | 96 | 12/19/2012 2:42 PM | | | | | PDT | | + + + + + | Temperature | 37 C (98.6 F) | 12/19/2012 2:42 PM | | | | | PDT | | + + + + + | Respiratory Rate | - | - | | + + + + + | Oxygen Saturation | 98% | 12/19/2012 2:42 PM | | | | | PDT | | + + + + + | Inhaled Oxygen | - | - | | | Concentration | | | | + + + + + | Weight | 101.2 kg (223 lb 1.7 | 12/19/2012 2:42 PM | | | | oz) | PDT | | + + + + + | Height | 166.4 cm (5' 5.5") | 12/19/2012 2:42 PM | | | | | PDT | | + + + + + | Body Mass Index | 36.56 | 12/19/2012 2:42 PM | | | | | PDT | | + + + + + documented in this encounter Progress Notes El Starr MD - 12/19/2012 3:39 PM PDTFormatting of this note might be different from pierre coleman. RENAL TRANSPLANT CONSULTATION This 17 y.o. female is referred by Dr. Sudhakar Joy for a renal transplant recipient evaluation. The patient is seen in the presence of the patient's parents. 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 Docusate sodium 100 mg Oral capsule, Take 100 mg by mouth two times daily. EPOETIN JOYCE INJ, by Injection route. Ferrous sulfate 325 mg (65 mg iron) Oral tablet, Take 325 mg by mouth two times daily FOLIC ACID/VITAMIN B COMP W-C (DIALYVITE ORAL), Take 1 tablet by mouth once daily. Sevelamer carbonate (RENVELA) 800 mg Oral tablet, Take 2,400 mg by mouth three times daily. History Social History Marital Status: Single Spouse Name: N/A Number of Children: 0 Years of Education: 11 Occupational History Student None Social History Main Topics Smoking status: Passive Smoke Exposure - Never Smoker Smokeless tobacco: Never Used Alcohol Use: No Drug Use: No Sexually Active: Not Currently Control/ Protection: None Other Topics Concern Not on file Social History Narrative Lives in [place], [place] with father and step-mother; 2 dogs; 1 cat; mohit in high school; ; no tobacco, street drugs or alcohol. Potential living donor? Yes (father; his BPs were normal X2 by me today) . Family History Problem Relation Hypertension Maternal Grandmother Stroke Maternal Grandfather Hypertension Paternal Grandmother Cancer Paternal Grandfather Lung Hypertension Paternal Grandfather Diabetes Maternal Aunt Type 2 ROS: complete sytem review done, see Problem List for significant responses. Sensitizing events: none Viral infections: positive for HSV, chicken pox; negative for shingles; Appears to be well, oriented to time, place and person, and competent to make medical decis ions for self. Mood and affect are appropriate. BP 110/78 | Pulse 96 | Temp (Src) 37 C (98.6 F) (Forehead) | Ht 1.664 m (5' 5.5") | Wt 101.2 kg (223 lb 1.7 oz) | SpO2 98% | BMI 36.55 kg/(m^2) Dialysis access: LLQ CAPD catheter (there is room for a renal transplant incision). HEENT: no scleral icterus, cranial nerves 2-12 grossly intact, no cervical masses, no carot id bruits. Chest: no scars, dialysis catheter present on left chest. Lungs: clear to ascultation. Heart: regular rhythm, no murmurs or rubs. Abdomen: striae, CAPD catheter exit site in LLQ, no masses, no tenderness, no bruits. Extremities: onychomycosis absent, foot or toe ulcers absent, pedal pulses present , no pe joesph edema, radial pulses present; left upper lateral bee sting erythema ~6 cm diameter with out induration . Neurological: no lateralizing findings. Risk factors (preliminary recommendations): 1. 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 2. Obesity + FH DM (weight loss, advised that she is at risk to develop post-trans[plant DM ). 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 4. Potential living renal donor(s) (evaluate). The patient is probably an acceptable unacceptable candidate for renal transplantation. . Plan: The potential risks and benefits of renal transplantation were reviewed. We will gat her the remainder of the information and present the case at the Transplant Selection Confer ence. El Starr MD leaf conditioner helper, Division of Abdominal Organ Transplantation Professor of Urology CC: Sudhakar Joy MD [address] [place] [address] documented in this encoun ter Procedure Notes Other, Faculty - 02/04/2014 11:20 AM PSTAssociated Order(s): LAB REPORTSElectronically sign ed by Faculty Other at 02/04/2014 11:20 AM PSTdocumented in this encounter Miscellaneous Notes Scan - Other, Faculty - 05/29/2014 10:50 AM PDTElectronically signed by Faculty Other at 10:50 AM PDTScan - Other, Faculty - 03/16/2013 2:46 PM PST can - Other, Faculty - 01/10/2013 7:51 AM PSTElec tronically signed by Faculty Other at 01/10/2013 7:51 AM PSTdocumented in this encounter Plan of Treatment +--------+ + + + + | Date | Type | Specialty | Care Team | Description | +--------+ + + + + | 05/04/ | Hospital | Adult Acute Care | El Starr MD | | | 3 | Encounter | | [address] | | | | | | [place], [place] | | | | | | [address] | | | | | | [phone] | | | | | | | | +--------+ + + + + documented as of this encounter Procedures + +--------+ + + + | Procedure Name | Priori | Date/Time | Associated Diagnosis | Comments | | | ty | | | | + +--------+ + + + | LAB REPORTS | | 12/24/2013 | | Results for this | | | | 12:00 AM | | procedure are in the | | | | PDT | | results section. | + +--------+ + + + documented in this encounter Results LAB REPORTS (12/24/2013 12:00 AM PDT) + + + | Narrative | Performed At | + + + | | | | | | + + + + + | Procedure Note | + + | Ashley Aburto - 02/04/2014 11:20 AM PST | + + documented in this encounter Visit Diagnoses + + | Diagnosis | + + | Patient on peritoneal dialysis (HCC) - Primary Renal dialysis status | + + | Unspecified essential hypertension | + + | HSP (Henoch-Schonlein purpura) nephritis (HCC) Other nephritis and nephropathy, not | | specified as acute or chronic, with specified pathological lesion in kidney | + + | Obesity (BMI 30-39.9) Obesity, unspecified | + + documented in this encounter
--- OUTSIDE RECORDS SUMMARY | 2019-12-25 21:30 | XMS | Encounter Summary ---
Demographics + + + | Address | [address] | | | [place] [address] | + + + | Home Phone [...] | | | | | [place] [address] | | + + + + + | Thania Mallory | ECON | [address] | | | | | [place] [address] | | + + + + + | Deidra Weldon | ECON | [address] | | | | | [place] | | | | | [address] | | + + + + + Care Team Providers + +------+ + | Care Tomographic Tech Name | Role | Phone | + +------+ + | Shahid Camargo MD | PCP | | + +------+ + Reason for Visit + + + | Reason | Comments | + + + | Patient education | Education class | + + + Encounter Details +--------+ + + + + | Date | Type | Department | Care Team | Description | +--------+ + + + + | 12/19/ | Documentati | Clinical | Margarette Childers RN | Patient education | | 2012 | on | Transplant Services | [address] | (Education class) | | | | [address] | [address] [place], | | | | | [address] [place], | [place] [address] | | | | | [place] [address] | | | | | | [phone] | | | +--------+ + + + [...] this encounter Miscellaneous Notes Telephone Encounter - Margarette Childers RN - 12/19/2012 11:57 AM PDTEDCLASS 12/19/12 Dara attended the Renal Transplant Education class accompanied by her Mom and Dad. Dara does have potential living donors. Class utilized: powerpoint presentation, written and verbal methods. Barriers to education identified: None Class content included: benefits of kidney transplantation-quality and quantity of life; t ypes of kidney/pancreas transplants; [facility] 1 year actual and expected patient survival, [facility] 1 year actual and expected graft survival, National 1 year patient and graft survival; Medic are outcomes requirements are met by [facility]; the pretransplant evaluation process; absolute an d relative contraindications to transplant; living donor issues; donor criteria and the waiting list, CDC High Risk Donor; UNOS regulations including BOTTOM WHEELER, multiple listing, an d transfer of seniority; living donor and recipient surgery and hospital course; surgical re covery; postoperative plans and supports; post-transplant routines and monitoring; post-colin splant risks of heart disease, cancer, infection, diabetes, GI disease, and osteoporosis; im munosuppressive medications. Assessment: Attentive and interactive in class. Both parents also interactive and attentive. Education plan/follow-up: Reassess and re-educate as needed. Might suggest post tx teaching pre due to adolescent ag e. Stressed compliance and rejection in class quite a lot since only one other patient in c lass with patient. documented in this encou nter Plan of Treatment +--------+ + + + + | Date | Type | Specialty | Care Team | Description | +--------+ + + + + | 05/04/ | Hospital | Adult Acute Care | El Starr MD | | | 2022 | Encounter | | [address] | | | | | | [place] | | | | | | [address] | | | | | | [phone] | | | | | | | | +--------+ + + + + documented as of this encounter Visit Diagnoses Not on filedocumented in this encounter"
--- OUTSIDE RECORDS SUMMARY | 2019-12-25 21:30 | XMS | Encounter Summary ---
Demographics + + + | Address | [address] | | | [place] [address] | + + + | Home Phone [...] | | | | | [place] [address] | | + + + + + | Thania Mallory | ECON | [address] | | | | | [place] [address] | | + + + + + | Deidra Weldon | ECON | [address] | | | | | [place] | | | | | [address] | | + + + + + Care Team Providers + +------+ + | Care Smudger Name | Role | Phone | + +------+ + | Shahid Camargo MD | PCP | | + +------+ + Encounter Details +--------+ + + + + | Date | Type | Department | Care Team | Description | +--------+ + + + + | 12/19/ | Document-Sc | UNKNOWN DEPARTMENT | Unknown . | | | 2012 | anned | [address] [facility] [facility] | | | | | | [facility] | | | | | | [place], [place] | | | | | | [address] | | | +--------+ + + + [...] Miscellaneous Notes Scan - Ashley Aburto - 03/18/2013 9:56 AM PSTElectronically signed by Ashley Aburto at 9:56 AM PSTdocumented in this encounter Plan of Treatment +--------+ + + + + | Date | Type | Specialty | Care Team | Description | +--------+ + + + + | 05/04/ | Hospital | Adult Acute Care | El Starr MD | | | 2022 | Encounter | | [address] | | | | | | [place] | | | | | | [address] | | | | | | [phone] | | | | | | | | +--------+ + + + + documented as of this encounter Visit Diagnoses Not on filedocumented in this encounter"
--- OUTSIDE RECORDS SUMMARY | 2019-12-25 21:30 | XMS | Encounter Summary ---
Demographics + + + | Address | [address] | | | [place] [address] | + + + | Home Phone [...] | | | | | [place] [address] | | + + + + + | Thania Mallory | ECON | [address] | | | | | [place] [address] | | + + + + + | Deidra Weldon | ECON | [address] | | | | | [place] | | | | | [address] | | + + + + + Care Team Providers + +------+ + | Care Alloy Weigher Name | Role | Phone | + +------+ + | Shahid Camargo MD | PCP | | + +------+ + Reason for Visit + +--------+ + | Reason | Onset | Comments | | | Date | | + +--------+ + | Candidate donor | 11/22/ | | | | 2012 | | + +--------+ + Encounter Details +--------+ + + + + | Date | Type | Department | Care Team | Description | +--------+ + + + + | 11/22/ | Telephone | Clinical | Kelsi Martniez, | Candidate donor | | 2012 | | Transplant Services | RN [address] | | | | | [address] | [facility] | | | | | [address], | [place], [place] | | | | | [place] [address] | [address] | | | | | [phone] | | | +--------+ + + + [...] Telephone Encounter - Kelsi Martinez RN - 11/22/2012 10:18 AM PDTReceived phone call maxim naqvibrandither of pt asking about kidney donation. Mother states that father has expressed in terest in being potential donor. Gave her the donor coordinator's phone number and explaine d that father had to initiate the call. Also, explained that father could not have hyperten arturo, diabetes or be overweight. Father will collect three separate BP checks prior to call ing the donor coordinator. Stepmother stated she would give the information to the father. documented in this en counter Plan of Treatment +--------+ + + + + | Date | Type | Specialty | Care Team | Description | +--------+ + + + + | 05/04/ | Hospital | Adult Acute Care | El Starr MD | | | 2022 | Encounter | | [address] | | | | | | [place], [place] | | | | | | [address] | | | | | | [phone] | | | | | | | | +--------+ + + + + documented as of this encounter Visit Diagnoses Not on filedocumented in this encounter"
--- OUTSIDE RECORDS SUMMARY | 2019-12-25 21:30 | XMS | Encounter Summary ---
Demographics + + + | Address | [address] | | | [place] [address] | + + + | Home Phone [...] | | | | | [place] [address] | | + + + + + | Thania Mallory | ECON | [address] | | | | | [place] [address] | | + + + + + | Deidra Weldon | ECON | [address] | | | | | [place] | | | | | [address] | | + + + + + Care Team Providers + +------+ + | Care Incident Response Manager Name | Role | Phone | + +------+ + | Shahid Camargo MD | PCP | | + +------+ + Reason for Visit + + + | Reason | Comments | + + + | Transplant Form | Evaluation Scheduled | | Update | | + + + Encounter Details +--------+ + + + + | Date | Type | Department | Care Team | Description | +--------+ + + + + | 11/30/ | Abstract | Clinical | Sudhakar Joy | Transplant Form | | 2012 | | Transplant Services | MD Emanuel [address] | Update (Evaluation | | | | [address] | [address] | Scheduled) | | | | [address] [place], | [place], [place] | | | | | [place] [address] | [address] | | | | | [phone] | [phone] | | | | | | | [...] | | | | | | [place], [place] | | | | | | [address] | | | | | | [phone] | | | | | | | | +--------+ + + + + documented as of this encounter Visit Diagnoses Not on filedocumented in this encounter"
--- OUTSIDE RECORDS SUMMARY | 2019-12-25 21:30 | XMS | Encounter Summary ---
Demographics + + + | Address | [address] | | | [place] [address] | + + + | Home Phone [...] + + + | Author | [facility] | + + + | Organization | [facility] | + + + | Address | Unknown | + + + | Phone | Unavailable | + + + Support + + + + + | Name | Relationship | Address | Phone | + + + + + | Cory Weldon | ECON | [address] | | | | | [place] [address] | | + + + + + | Thania Mallory | ECON | [address] | | | | | [place] [address] | | + + + + + | Deidra Weldon | ECON | [address] | | | | | [place] | | | | | [address] | | + + + + + Care Team Providers + +------+ + | Care Precision Layout Worker Name | Role | Phone | + +------+ + | Shahid Camargo MD | PCP | | + +------+ + Reason for Visit + + + | Reason | Comments | + + + | Transplant Form | Dialysis unit updated | | Update | | + + + Encounter Details +--------+ + + + + | Date | Type | Department | Care Team | Description | +--------+ + + + + | 12/09/ | Abstract | Clinical | Jesus Edmond, | Transplant Form | | 2012 | | Transplant Services | [address] | Update (Dialysis | | | | [address] | [address] | unit updated) | | | | [address] [place], | [place], [place] | | | | | [place] [address] | [address] | | | | | [phone] | [phone] | | | | | | | [...] [address] | | | | | | [place], [place] | | | | | | [address] | | | | | | [phone] | | | | | | | | +--------+ + + + + documented as of this encounter Visit Diagnoses Not on filedocumented in this encounter"
--- OUTSIDE RECORDS SUMMARY | 2019-12-25 21:30 | XMS | Encounter Summary ---
Demographics + + + | Address | [address] | | | [place] [address] | + + + | Home Phone | | + + + | Preferred Language | Unknown | + + + | Marital Status | Single | + + + | Sabianism Affiliation | Unknown | + + + [...] | | | | | [place] [address] | | + + + + + | Thania Mallory | ECON | [address] | | | | | [place] [address] | | + + + + + | Deidra Weldon | ECON | [address] | | | | | [place] | | | | | [address] | | + + + + + Care Team Providers + +------+ + | Care Hardware Supplies Sales Representative Name | Role | Phone | + +------+ + | Shahid Camargo MD | PCP | | + +------+ + Encounter Details +--------+---------+ + + + | Date | Type | Department | Care Team | Description | +--------+---------+ + + + | 12/19/ | Office | Food and Nutrition | Argentina Mehta, | Chronic kidney | | 2012 | Visit | Services Inpatient | [address] [facility] [address] [facility] | disease, stage V | | | | [address] [facility] [address] [facility] | [address] | (HCC) (Primary Dx) | | | | [address] | [place], [place] | | | | | [facility] | [address] | | | | | [place], [place] | [phone] | | | | | [address] | | | | | | [phone] | | | +--------+---------+ + + + [...] documented as of this encounter Progress Notes Argentina Mehta, RD - 12/21/2012 8:57 PM PDTFormatting of this note might be different fr om the original. Nutrition Clinic - Renal Transplant Evaluation Assessment: Pt seen for 30 min w/ her father and mother Dara [place] is a 17 y.o. 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 CLIENT HX: Significant Medical/Surgical History: Past Medical History Diagnosis Date Obesity, unspecified Unspecified essential hypertension Anemia, unspecified Renal failure, unspecified . Dialysis: [facility] dialysis since May 2012 Family Hx: Diabetes. Prescription meds: Current Outpatient Prescriptions on File Prior to Visit Medication Sig Dispense Refill calcitriol 0.25 mcg Oral capsule Take 0.5 mcg by mouth once daily. docusate sodium 100 mg Oral capsule Take 100 mg by mouth two times daily. EPOETIN JOYCE INJ by Injection route. ferrous sulfate 325 mg (65 mg iron) Oral tablet Take 325 mg by mouth two times daily. FOLIC ACID/VITAMIN B COMP W-C (DIALYVITE ORAL) Take 1 tablet by mouth once daily. sevelamer carbonate (RENVELA) 800 mg Oral tablet Take 2,400 mg by mouth three times beck ly. No current facility-administered medications on file prior to visit. Herbal Supplements: None Vitamins/Minerals: see above. OTC Meds:tylenol prn FOOD AND NUTRITION HX: Current diet prescription per patient is moderate sodium. Lives w/ father and step mother; occasionally with mother and step-mother manages food prep aration. Eats at school breakfast and lunch. Appetite is good and her energy level is low. Exercise: none. Nutritional Supplements none. ANTHROPOMETRICS: Ht stated 5' 5 /" Wt stated 224 lbs (with dialysate) Stated dry wt 215-220 lbs Interdialytic weight gain: na Usual weight: 220 lbs. Max adult weight: 230 lbs. Wt 12/2011 180-190 lbs BIOCHEMISTRIES, OTHER TESTS: Lab Results Lab Test Name Results Date/Time NA 141 12/20/12 K 3.5 12/20/12 CL 106 12/20/12 BICARB 22 12/20/12 BUN 49 12/20/12 CR 7.27 12/20/12 GLU 93 12/20/12 CA 8.7 12/20/12 MG 2.6 12/20/12 PO4 5.4 12/20/12 CHOL 195 12/20/12 FERRITIN 76 12/20/12 HCT 30.4 12/20/12 MCV 98.4 12/20/12 ALB 3.4 10/17/13 NUTRITION PHYSICAL EXAM: GI symptoms: nausea when fluid overload and constipation. Appearance, other findings: obese female Nutrition Diagnosis Obese female with a BMI of 35-36 (based on dry weight of 215-220). Assessment of post transplant outcomes: Weight Gain - Patient at upper end of BMI and post transplant she is at risk of gaining 20+ pounds is prednisone is part of regimen. She has gained approx. 30 lbs since starting dial ysis from calories in dialysate. Diabetes - Maternal and paternal aunts with diabetes which increases her risk for hyperglyc emia post transplant. Discussed post-kidney transplant nutrition in general, felipe adequate heart healthy eating an d food safety. Discussed importance of taking current medication. She forgets to take phosp hate binders unless reminded by friend at school. Discussed other ways to remember includin g setting alarms on cell phone. She took binders religiously this week and her phosphorus i s reflective of that. Last phosphorus per patient was 6.0 and previously it was > 7. Intervention/ Plan: Recommendations: Achieve/maintain dry weight at 215# for BMI 35 Maintain Phos < 5.5 Acceptable for kidney transplant from a nutrition perspective. Argentina Mehta, MS, RD, GLASS CALIBRATOR, LD documented in this e ncounter Plan of Treatment +--------+ + + + + | Date | Type | Specialty | Care Team | Description | +--------+ + + + + | 05/04/ | Hospital | Adult Acute Care | El Starr MD | | | 2022 | Encounter | | [address] | | | | | | [place], [place] | | | | | | [address] | | | | | | [phone] | | | | | | | | +--------+ + + + + documented as of this encounter Procedures + +--------+ + + + | Procedure Name | Priori | Date/Time | Associated Diagnosis | Comments | | | ty | | | | + +--------+ + + + | [facility] INITIAL | Routin | 12/21/2012 | Chronic kidney | | | ASSESSMNT X15MIN | e | 9:34 PM | disease, stage V | | | | | PDT | (HCC) | | + +--------+ + + + documented in this encounter Visit Diagnoses + + | Diagnosis | + + | Chronic kidney disease, stage V (HCC) - Primary Chronic kidney disease, Stage V | + + documented in this encounter
--- OUTSIDE RECORDS SUMMARY | 2019-12-25 21:30 | XMS | Encounter Summary ---
Demographics + + + | Address | [address] | | | [place] [address] | + + + | Home Phone [...] | | | | | [place] [address] | | + + + + + | Thania Mallory | ECON | [address] | | | | | [place] [address] | | + + + + + | Deidra Weldon | ECON | [address] | | | | | [place] | | | | | [address] | | + + + + + [...] Shun | | | | | [address] | [facility] | | | | | [place], [place] | [place] [address] | | | | | [address] | [phone] | | | | | | | [...] [place] | | | | | | [address] | | | | | | [phone] | | | | | | | | +--------+ + + + + documented as of this encounter Visit Diagnoses Not on filedocumented in this encounter"
--- OUTSIDE RECORDS SUMMARY | 2019-12-25 21:31 | XMS | Encounter Summary ---
Demographics + + + | Address | [address] | | | [place] [address] | + + + | Home Phone | | + + + | Preferred Language | Unknown | + + + | Marital Status | Single | + + + | Scientology Affiliation | Unknown | + + + [...] | | | | | [place] [address] | | + + + + + | Thania Mallory | ECON | [address] | | | | | [place] [address] | | + + + + + | Deidra Weldon | ECON | [address] | | | | | [place] | | | | | [address] | | + + + + + Care Team Providers + +------+ + | Care Skin Former Name | Role | Phone | + +------+ + | Shahid Camargo MD | PCP | | + +------+ + Encounter Details +--------+ + + + + | Date | Type | Department | Care Team | Description | +--------+ + + + + | 10/25/ | Documentati | Clinical | Kelsi Martinez, | | | 2012 | on | Transplant Services | RN [address] | | | | | [address] | [facility] | | | | | [address] [place], | [place], [place] | | | | | [place] [address] | [address] | | | | | [phone] | | | +--------+ + + + + Social History + +-------+ +--------+------+ | Tobacco Use | Types | Packs/Day | Years | Date | | | | | Used | | + +-------+ +--------+------+ | Never Assessed | | | | | + +-------+ +--------+------+ + + + | Sex Assigned at [...] Denise | | | | | | [place], [place] | | | | | | [address] | | | | | | [phone] | | | | | | | | +--------+ + + + + documented as of this encounter Visit Diagnoses Not on filedocumented in this encounter"
--- OUTSIDE RECORDS SUMMARY | 2019-12-25 21:31 | XMS | Encounter Summary ---
Demographics + + + | Address | [address] | | | [place] [address] | + + + | Home Phone [...] | | | | | [place] [address] | | + + + + + | Thania Mallory | ECON | [address] | | | | | [place] [address] | | + + + + + | Deidra Weldon | ECON | [address] | | | | | [place] | | | | | [address] | | + + + + + Care Team Providers + +------+ + | Care Bench Press Operator Name | Role | Phone [...] Param Iraheta | | | | | ([facility]) | [address] | Alexander | | | | | Procedures | [address] | Children's | | | | | TRANSTHORACI | [place], [place] | [address] | | | | | C | [address] | Floor | | | | | ECHOCARDIOGR | Phone: | [place], [place] | | | | | AM, PEDS | [phone] | [address] | | | | | | Fax: | Phone: | | | | | | [phone] | [phone] | | | | | | | Fax: | | | | | | | [phone] | +--------+--------+ + + + + Reason for Visit + + + | Reason | Comments | + + + | Transplant Form | | | Update | | + + + Encounter Details +--------+ + + + + | Date | Type | Department | Care Team | Description | +--------+ + + + + | 10/26/ | Documentati | Clinical | Kelsi Martinez, | Transplant Form | | 2012 | on | Transplant Services | RN [address] | Update | | | | [address] | [facility] | | | | | [facility], | [place], [place] | | | | | [place] [address] | [address] | | | | | [phone] | | | +--------+ + + + [...] Telephone Encounter - Kelsi Martinez RN - 10/26/2012 8:40 AM PDTReceived phone call fro m mother of pt and gave updated maternal family history. Parents are and mother st ressed that both families need to be contacted regarding pt's care and schedules. Mother's address noted in the demographics.Electronically signed by Kelsi Martinez RN at 9:52 AM PDTdocumented in this encounter Plan of Treatment +--------+ + + + + | Date | Type | Specialty | Care Team | Description | +--------+ + + + + | 05/04/ | Hospital | Adult Acute Care | El Starr MD | | | 2022 | Encounter | | [address] | | | | | | [place], [place] | | | | | | [address] | | | | | | [phone] | | | | | | | | +--------+ + + + + + +------+--------+ + + | Name | Type | Priori | Associated Diagnoses | Order Schedule | | | | ty | | | + +------+--------+ + + | LIT HLA-A LOW RES-KE | Lab | Routin | Allergic purpura- | Expected: 11/29/2012 | | | | e | MEDICARE 2728 | (Approximate), | | | | | | Expires: 11/26/2013 | + +------+--------+ + + | LIT HLA-B LOW RES-KE | Lab | Routin | Allergic purpura- | Expected: 11/29/2012 | | | | e | MEDICARE 2728 | (Approximate), | | | | | | Expires: 11/26/2013 | + +------+--------+ + + documented as of this encounter Results 12 LEAD ECG (12/20/2012 [...] | | | | | SHIN TORREZ (594) on | | | | | | 12/21/2012 9:37:54 AM | | | | + + + + + + + + | Specimen | + + | | + + + + + | Narrative | Performed At | + + + | Please click | [facility] | | on view image for the detailed interpretation from [facility] results. | CARDIOLOGY | + + + + + | Procedure Note | + + | Interface, Cardiology Results - 12/21/2012 9:38 AM PDT Please click on view image | | for the detailed interpretation from [facility] results. | + + + + + + + | Performing | Address | City/State/Zipcode | Phone Number | | Organization | | | | + + + + + | [facility] | [address] | [place], [place] | | | CARDIOLOGY | [address] | [address] | | + + + + + LIT HLA-B WILEY RESDARWIN (12/20/2012 10:02 AM PDT) + + | Specimen | + + | Blood - Blood | + + + + + + + | Performing | Address | City/State/Zipcode | Phone Number | | Organization | | | | + + + + + | [facility] - | [address] | [place], [place] | | | IMMUNOGENETICS/TRANS | Suite [...] - | [address] | [place], [place] | | | IMMUNOGENETICS/TRANS | Suite [...] + + | [facility] - | [address] | [place] [address] | | | IMMUNOGENETICS/TRANS | [address] [...] [facility] - | [address] | [place] [address] | | | IMMUNOGENETICS/TRANS | [address] | | | | [facility] | | | | + + + + + LIT HLA-DR WILEY ZHANG (12/20/2012 10:02 AM PDT) + + | Specimen | + + | Blood - Blood | + + + + + + + | Performing | Address | City/State/Zipcode | Phone Number | | Organization | | | | + + + + + | [facility] - | [address] | [place] [address] | | | IMMUNOGENETICS/TRANS | [address] [...] + + | [facility] - | [address] | [place] [address] | | | IMMUNOGENETICS/TRANS | [address] | | | | PLANT LABORATORY | | | | + + + + + US ABDOMEN COMPLETE (12/20/2012 9:58 AM PDT) [...] | | | | | | EDWIN MDAuthor: | | | | | | NELSON [...] + + | Performing | Address | City/State/[facility] Cent[facility]ode | Phone Number | | Organization | | | | + +---------+ + + | [facility] DEPARTMENT OF | | | | | RADIOLOGY | | | | + +---------+ + + X-RAY BONE AGE; LEFT HAND (12/20/2012 9:29 [...] | | | | | standards of Artand | | | | | | Gilberto. [...] | | + +---------+ + + | [facility] DEPARTMENT | | | | | RADIOLOGY | | | | + +---------+ + + X-RAY CHEST 2 VIEW (12/20/2012 9:27 AM [...] | | + +---------+ + + | [facility] DEPARTMENT OF | | | | | RADIOLOGY | | | | + +---------+ + + TRANSFERRIN, SERUM (12/20/2012 8:39 AM PDT) + + + + + + | Component | Value | Ref Range | Performed | Pathologist | | | | | At | Signature | + + + + + + | TRANSFERRIN | 232Comment: Performed by | 200 - 400 mg/dL | [facility] | | | , SERUM | [facility],[address] | | REG UNIV | | | | [address], [facility] | | PTH - INTFC | | | | [address] | | | | | | [phone].[facility]uplab. | | | | | | Faisal [...] [facility] | [address] | [place], [place] | | | UNIV PTH - INTFC | | [address] | | + + + + + [...] | + + + + + | [facility] | [address] | [place] [address] | | | SERVICES, CORE | PARK [...] | + + + + + | [facility] | [address] | [place] [address] | | | SERVICES, CORE | LONG [...] + | [facility] - | [address] | [place] [address] | | | [place] | | | [...] + + + + | MUCOUS | Jennifer (A) | None /hpf | [facility] | [...] + + + + + + | NON-SQUAMARLENE | Jennifer (A) | None /hpf | [facility] | [...] [facility] | [address] | [place] [address] | | | SERVICESHOMERO | [address] | | | + [...] [facility] | [address] | [place] [address] | | | SERVICES, CORE | [address] | | | + + + + + ROCÍO GARAY ONLY (12/20/2012 8:39 AM PDT) + + + + + + | Component | Value | Ref Range | Performed | Pathologist | | | | | At | Signature | + + + + + + | COLOR(UR) | Yellow | | [facility] | | | | [...] [facility] | [address] | [place] [address] | | | SERVICES, CORE | LONG [...] - | | | | | | [place] | | + + + + + + + + | Specimen | + + | Blood - Blood | + + + + + + + | Performing | Address | City/State/Zipcode | Phone Number | | Organization | | | | + + + + + | [facility] - | [address] | [place] [address] | | | [facility] | | | | + + + [...] at: | | | | | | http://www.cdc.gov/nchstp/tb/pubs/tbfactssheets/593731.htm | | | Test performed by: [facility] [address] | [address] [place] [address] | | + + + + + [...] | + + + + + | [facility] | [address] | [place] [address] | | | SERVICES, SPECIAL | PARK [...] INTERPRETATION: Prothrombin mutation analysis shows that | [facility] | | there is no mutation in either copy of the prothrombin gene at | DIAGNOSTIC | | nucleotide [address]2857. Please note that this assay only detects the | LABORATORIES | | [id number] point mutation and therefore a normal result [...] has been analyzed for the presence of X05139V | | | mutation in the prothrombin [...] | | Heterozygotes for the common prothrombin V29933V mutation constitute | | | approximately 2% of the normal white population (1,2). | | | References: 1.) Poort et al. Blood 88, 7932-0069 (1996). 2.) Ricardo | | | et al. Circulation 99, 999-1004 (1998). 3.) Al Montalvo, and | | | Press. Amer J Clin Path 155, 439-79 (2001). This test was | | | developed and its performance characteristics determined by the [facility] | | | [facility]. It has | | | not been cleared or approved by the Food and Drug Administration. | | | FDA approval is not required for clinical use of this test, and | | | therefore validation was done as required under the requirements of | | | the Clinical Laboratory Improvement Act of 1988. The [facility] | | | [facility] is a fully | | | licensed and/or accredited clinical laboratory under CLIA, CAP, and | | | the [facility]. Please note that our lab now also [...] + + | Performing | Address | City/State/[facility] Centercode | Phone Number | | Organization | | | | + + + + + | [facility] | [address] | [place] [address] | | | DIAGNOSTIC | [address] [...] [facility] | [address] | [place] [address] | | | SERVICES, CORE | [address] | | | + + + + + MAGNESIUM, PLASMA (12/20/2012 8:39 AM PDT) + +---------+ + + + | Component | Value | Ref Range | Performed | Pathologist | | | | | At | Signature | + +---------+ + + + | MAGNESIUM,P | 2.6 (H) | 1.8 - 2.5 mg/dL | [facility] | | | LASMA | | | [...] | + + + + + | [facility] | [address] | [place] [address] | | | SERVICES, CORE | LONG [...] | + + + + + | [facility] | [address] | [place] [address] | | | SERVICES, CORE | LONG [...] mech. valves (2.5 - 3.5) INR | SERVICES, CORE | + + + + + + + + | Performing | Address | City/State/Zipcode | Phone Number | | Organization | | | | + + + + + | [facility] | [address] | [place] [address] | | | SERVICES, CORE | LONG [...] | | | | | | Laboratories,[address] | | | | | | [place], [place] [address] | | | | | | [phone].aruplab. | | | | | | Faisal mantilla, | | | | | | MD Lab. Director | | | | + + + + + + + + | Specimen | + + | Blood - Blood | + + + + + + + | Performing | Address | City/State/Zipcode | Phone Number | | Organization | | | | + + + + + | [facility] | [address] | [place], [place] | | | UNIV PTH - INTFC | | [address] | | + + + + + [...] | + + + + + | [facility] | [address] | [place] [address] | | | SERVICES, SPECIAL | PARK [...] C PCR, | Undetected | IU/mL | [facility] | | | QUANT | | | [...] Range: 43-69,000,000 IU/mL These results are | [facility] | | most likely indicative of the [...] + + + + | [facility] | [address] | [place] [address] | | | DIAGNOSTIC | [address] [...] + | [facility] - | [address] | [place] [address] | | | [place] | | | | + + + [...] + | [facility] - | [address] | [place] [address] | | | [place] | | | [...] | | | SERUM | | | [facility] | | + + + + + + + + | Specimen | + + | Blood - Blood | + + + + + + + | Performing | Address | City/State/Zipcode | Phone Number | | Organization | | | | + + + + + | [facility] - | [address] | [place] [address] | | | [place] | | | [...] | + + + + + | [facility] - | [address] | [place] [address] | | | [place] | | | [...] less......Not | | | | | | Macyqcap02.0-21.9 | | | | | | U/mL.........Indetermina [...] available | | | | | | [email or web address] | | | | | | vdx.Performed by [facility] | | | | | | [facility] | | | | | | [place] [address] | | | | | | [phone].[facility] Biologicslab. | | | | | | Faisal [...] [facility] | [address] | [place], [place] | | | UNIV PTH - INTFC | | [address] | | + + + + + [...] | + + + + + | [facility] - | [address] | [place] [address] | | | [place] | | | [...] | + + + + + | [facility] | [address] | [place] [address] | | | SERVICES, CORE | LONG [...] by | | | | | | [facility],[address] | | | | | | [address], [facility] | | | | | | [address] | | | | | | [phone].Well[facility]. | | | | | | [facility], Faisal Caraballo, | | | | | | Jenny ALMEIDA. Director | | | | + + + + + + + + | Specimen | + + | Blood - Blood | + + + + + + + | Performing | Address | City/State/Zipcode | Phone Number | | Organization | | | | + + + + + | [facility] | [address] | [place], [place] | | | UNIV PTH - INTFC | | [address] | | + + + + + [...] [facility] | [address] | [place] [address] | | | SERVICES, CORE | PARK [...] | + +---------+ + + + | ELIJAH Castellanos CMNT | No Hemo | | [facility] [...] + | [facility] | [address] | [place] [address] | | | HMOERO LAN | [address] | | | [...] + + | [facility] | [address] | [place] [address] | | | HOMERO LAN | [address] | | | + + + + + TRANSTHORACIC ECHOCARDIOGRAM, PEDS (12/20/2012 12:00 AM PDT) + + + | Narrative | Performed At | + + + | | | | | | + + + + + | Procedure Note | + + | Ashley Aburto - 12/20/2012 12:15 PM PDT | + [...]
--- OUTSIDE RECORDS SUMMARY | 2019-12-25 21:31 | XMS | Encounter Summary ---
Demographics + + + | Address | [address] | | | [place] [address] | + + + | Home Phone | | + + + | Preferred Language | Unknown | + + + | Marital Status | Single | + + + | Protestant Affiliation | Unknown | + + + [...] | | | | | [place] [address] | | + + + + + | Thania Mallory | ECON | [address] | | | | | [place] [address] | | + + + + + | Deidra Weldon | ECON | [address] | | | | | [place] | | | | | [address] | | + + + + + Care Team Providers + +------+ + | Care Activity Leader Name | Role | Phone | + [...] + + + + | 10/25/ | Abstract | Clinical | Jesus Edmond, | Transplant Form | | 2012 | | Transplant Services | [address] | Update | | | | [address] | [place] | | | | | [address] [place], | [place], [place] | | | | | [place] [address] | [address] | | | | | [phone] | [phone] | | | | | | | [...] [address] | | | | | | [place], [place] | | | | | | [address] | | | | | | [phone] | | | | | | | | +--------+ + + + + documented as of this encounter Visit Diagnoses Not on filedocumented in this encounter"
--- OUTSIDE RECORDS SUMMARY | 2019-12-25 21:31 | XMS | Encounter Summary ---
Demographics + + + | Address | [address] | | | [place] [address] | + + + | Home Phone [...] | | | | | [place] [address] | | + + + + + | Thania Mallory | ECON | [address] | | | | | [place] [address] | | + + + + + | Deidra Weldon | ECON | [address] | | | | | [place] | | | | | [address] | | + + + + + Care Team Providers + +------+ + | Care Strap Buckler Name | Role | Phone | + [...] | +--------+ + + + + | 10/31/ | Abstract | Clinical | Jesus Edmond, | Transplant Form | | 2012 | | Transplant Services | [address] | Update | | | | [address] | [place] | | | | | [place], | [place], [place] | | | | | [place] [address] | [address] | | | | | [phone] | [phone] | | | | | | | [...] [address] | | | | | | [place], [place] | | | | | | [address] | | | | | | [phone] | | | | | | | | +--------+ + + + + documented as of this encounter Visit Diagnoses Not on filedocumented in this encounter"
--- OUTSIDE RECORDS SUMMARY | 2019-12-25 21:31 | XMS | Encounter Summary ---
Demographics + + + | Address | [address] | | | [place] [address] | + + + | Home Phone [...] | | | | | [place] [address] | | + + + + + | Thania Mallory | ECON | [address] | | | | | [place] [address] | | + + + + + | Deidra Weldon | ECON | [address] | | | | | [place] | | | | | [address] | | + + + + + Care Team Providers + +------+ + | Care Education Site Manager Name | Role | Phone | + +------+ + | Shahid Camargo MD | PCP | | + +------+ + Reason for Visit +--------+--------+ + | Reason | Onset | Comments | | | Date | | +--------+--------+ + | Other | 11/15/ | Requested [id number] | | | 2012 | | +--------+--------+ + Encounter Details +--------+ + + + + | Date | Type | Department | Care Team | Description | +--------+ + + + + | 11/15/ | Telephone | Clinical | Jesus Edmond, | Other (Requested | | 2012 | | Transplant Services | [address] | [id number]) | | | | [address] | [facility] | | | | | [place], | [place], [place] | | | | | [place] [address] | [address] | | | | | [phone] | [phone] | | | | | | | [...] | | | | | | [place], [place] | | | | | | [address] | | | | | | [phone] | | | | | | | | +--------+ + + + + documented as of this encounter Visit Diagnoses Not on filedocumented in this encounter"
--- OUTSIDE RECORDS SUMMARY | 2019-12-25 21:31 | XMS | Encounter Summary ---
Demographics + + + | Address | [address] | | | [place] [address] | + + + | Home Phone [...] Author + + + | Author | [facility] | + + + | Organization | [facility] | + + + | Address | Unknown | + + + | Phone | Unavailable | + + + Support + + + + + | Name | Relationship | Address | Phone | + + + + + | Cory Weldon | ECON | [address] | | | | | [place] [address] | | + + + + + | Thania Mallory | ECON | [address] | | | | | [place] [address] | | + + + + + | Deidra Weldon | ECON | [address] | | | | | [place] | | | | | [address] | | + + + + + Care Team Providers + +------+ + | Care Floating Labor Gang Supervisor Name | Role | Phone | + +------+ + | Shahid Camargo MD | PCP | | + +------+ + Reason for Visit + + + | Reason | Comments | + + + | Financial Review | | + + + Encounter Details +--------+ + + + + | Date | Type | Department | Care Team | Description | +--------+ + + + + | 10/31/ | Documentati | Clinical | Kenny Abbott | Financial Review | | 2012 | on | Transplant Services | [address] | | | | | [address] | [address] [place], | | | | | [place], | [place] [address] | | | | | [place] [address] | | | | | | [phone] | | | +--------+ + + + [...] this encounter Miscellaneous Notes Telephone Encounter - Kenny Abbott - 10/31/2012 4:31 PM PDT.Financial Status GO This .17 y.o. patient has adequate insurance and resources for transplant surgery and post transplant care. She lives in .[place], [place] Financial Risks Identified: .None, I didn't s/w pt, (family) Insurance/Financial: Medicare & OHP Plus Hospital Superintendent Plan: Appears stable insurance documented in this encounter Plan of Treatment +--------+ + + + + | Date | Type | Specialty | Care Team | Description | +--------+ + + + + | 05/04/ | Hospital | Adult Acute Care | El Starr MD | | | 2022 | Encounter | | [address] | | | | | | [place], [place] | | | | | | [address] | | | | | | [phone] | | | | | | | | +--------+ + + + + documented as of this encounter Visit Diagnoses Not on filedocumented in this encounter"
--- OUTSIDE RECORDS SUMMARY | 2019-12-25 21:31 | XMS | Encounter Summary ---
Demographics + + + | Address | [address] | | | [place] [address] | + + + | Home Phone | | + + + | Preferred Language | Unknown | + + + | Marital Status | Single | + + + | Yarsanism Affiliation | Unknown | + + + | Race | White | + + + | Ethnic Group | Not or | + + + Author + + + | Author | [facility] | + + + | Organization | [facility] | + + + | Address | Unknown | + + + | Phone | Unavailable | + + + Support + + + + + | Name | Relationship | Address | Phone | + + + + + | Cory Weldon | ECON | [address] | | | | | [place] [address] | | + + + + + | Thania Mallory | ECON | [address] | | | | | [place] [address] | | + + + + + | Deidra Weldon | ECON | [address] | | | | | [place] | | | | | [address] | | + + + + + Care Team Providers + +------+ + | Care Drafting Engineer Name | Role | Phone | [...] | | | [address] | [facility] | | | | | [address] [place], | [place], [place] | | | | | [place] [address] | [address] | | | | | [phone] | | | +--------+ + + + [...] [address] | | | | | | [place] | | | | | | [address] | | | | | | [phone] | | | | | | | | +--------+ + + + + documented as of this encounter Visit Diagnoses Not on filedocumented in this encounter"
--- OUTSIDE RECORDS SUMMARY | 2019-12-25 21:31 | XMS | Encounter Summary ---
Demographics + + + | Address | [address] | | | [place] [address] | + + + | Home Phone [...] | Author | [facility] | + + + | Organization | [facility] | + + + | Address | Unknown | + + + | Phone | Unavailable | + + + Support + + + + + | Name | Relationship | Address | Phone | + + + + + | Cory Weldon | ECON | [address] | | | | | [place] [address] | | + + + + + | Thania Mallory | ECON | [address] | | | | | [place] [address] | | + + + + + | Deidra Weldon | ECON | [address] | | | | | [place] | | | | | [address] | | + + + + + Care Team Providers + +------+ + | Care Marketing Strategy Analyst Name | Role | Phone | + +------+ + | Shahid Camargo MD | PCP | | + +------+ + Reason for Visit + + + | Reason | Comments | + + + | Referral To | | | Transplant - Renal | | + + + Encounter Details +--------+ + + + + | Date | Type | Department | Care Team | Description | +--------+ + + + + | 10/24/ | Documentati | Clinical | Kelsi Martinez, | Referral To | | 2012 | on | Transplant Services | RN [address] | Transplant - Renal | | | | [address] | [facility] | | | | | [place], | [place], [place] | | | | | [place] [address] | [address] | | | | | [phone] | | | +--------+ + + + [...] Telephone Encounter - Kelsi Martinez RN - 10/25/2012 10:53 AM PDTDid partial intake with stepmotherDeidra. Father is going to contact this office so family history, transfusion history, etc may be documented. Contacted [facility] [place] in [place] and reques wilmer immunization record and pt's [phone]. Explained the transplant process to stepmother and s he asked appropriate questions. Currently the family has no potential living donors.Electro nically signed by Kelsi Martinez RN at 10/25/2012 10:54 AM PDTTelephone Encounter - [facility] - 10/25/2012 10:22 AM PDTReceived voice mail from mother of pt stating she wa s returning my call. Attempted to contact mother of pt, left voice mail requesting return c all. elephone Encount er - Kelsi Martinez RN - 10/24/2012 2:01 PM PDTReceived referral to [facility] from Dr. 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 Pt also has hypertension and anemia. Attempted to contact family, ervin yusuf voice mail at home number and mother's cell number in the system is disconnected. Reques wilmer return call. 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
--- OUTSIDE RECORDS SUMMARY | 2019-12-25 21:31 | XMS | Encounter Summary ---
Demographics + + + | Address | [address] | | | [place] [address] | + + + | Home Phone [...] | | | | | [place] [address] | | + + + + + | Thania Mallory | ECON | [address] | | | | | [place] [address] | | + + + + + | Deidra Weldon | ECON | [address] | | | | | [place] | | | | | [address] | | + + + + + Care Team Providers + +------+ + | Care Volleyball Commentator Name | Role | Phone | + +------+ + | Nereida Roberson MD | PCP | | + +------+ + Reason for Visit + +--------+ + | Reason | Onset | Comments | | | Date | | + +--------+ + | Follow-up visit | 03/08/ | r/s f/u appt on 03/16/12 to [facility] | | | 2012 | | + +--------+ + Encounter Details +--------+ + + + + | Date | Type | Department | Care Team | Description | +--------+ + + + + | 03/08/ | Telephone | Pediatric | Sudhakar Joy | Follow-up visit (r/s | | 2012 | | Nephrology at | MD Emanuel [address] | f/u appt on | | | | [place] | [address] | 03/16/12 to [facility]) | | | | [facility] | [place], [place] | | | | | [address] | [address] | | | | | [place] | [phone] | | | | | [facility], | | | | | | [facility] | | | | | | [place], [place] | | | | | | [address] | | | | | | [phone] | | | +--------+ + + + [...] this encounter Miscellaneous Notes Telephone Encounter - Ana Rae - 03/08/2012 1:24 PM PSTLVM on # to r/s [facility] ppt to [facility] if the family is willing per DW. (BRIANNA is On-Service on 03/16/12 - clinic needs to be downsized) documented in this encounter Plan of Treatment +--------+ + + + + | Date | Type | Specialty | Care Team | Description | +--------+ + + + + | 05/04/ | Hospital | Adult Acute Care | El Starr MD | | | 2022 | Encounter | | [address] | | | | | | [place], [place] | | | | | | [address] | | | | | | [phone] | | | | | | | | +--------+ + + + + documented as of this encounter Visit Diagnoses Not on filedocumented in this encounter"
--- OUTSIDE RECORDS SUMMARY | 2019-12-25 21:31 | XMS | Encounter Summary ---
Demographics + + + | Address | [address] | | | [place] [address] | + + + | Home Phone [...] | | | | | [place] [address] | | + + + + + | Thania Mallory | ECON | [address] | | | | | [place] [address] | | + + + + + | Deidra Weldon | ECON | [address] | | | | | [place] | | | | | [address] | | + + + + + Care Team Providers + +------+ + | Care Pharmacy Cashier Name | Role | Phone | + +------+ + | Shahid Camargo MD | PCP | | + +------+ + Encounter Details +--------+ + + + + | Date | Type | Department | Care Team | Description | +--------+ + + + + | 10/30/ | Documentati | Pediatric | Kelsi Martinez, | | | 2012 | on | Nephrology at | RN [address] [facility] | | | | | [place] | [facility] | | | | | [facility] | [place], [place] | | | | | [address] | [address] | | | | | [place] | | | | | | [facility], | | | | | | [address] [place] [address] | | | | | | [place], [place] | | | | | | [address] | | | | | | [phone] | | | +--------+ + + + [...] 2022 | Encounter | | [address] | | | | | | [place] | | | | | | [address] | | | | | | [phone] | | | | | | | | +--------+ + + + + documented as of this encounter Visit Diagnoses + + | Diagnosis | + + | 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
--- OUTSIDE RECORDS SUMMARY | 2019-12-25 21:31 | XMS | Encounter Summary ---
Demographics + + + | Address | [address] | | | [place] [address] | + + + | Home Phone [...] | | | | | [place] [address] | | + + + + + | Thania Mallory | ECON | [address] | | | | | [place] [address] | | + + + + + | Deidra Weldon | ECON | [address] | | | | | [place] | | | | | [address] | | + + + + + Care Team Providers + +------+ + | Care Lacer And Tier Name | Role | Phone | + [...] [facility] | | | | | [address] [place], | [place], [place] | | | | | [place] [address] | [address] | | | | | [phone] | | | +--------+ + + + [...] Encounter - Kelsi Martinez RN - 10/25/2012 11:32 AM PDTReceived Medicare 2728 form from dialysis unit and sent to be scanned into [employer]. documented in this encounter Plan of Treatment +--------+ + + + + | Date | Type | Specialty | Care Team | Description | +--------+ + + + + | 05/04/ | Hospital | Adult Acute Care | El Starr MD | | | 2022 | Encounter | | [address] | | | | | | [place], [place] | | | | | | [address] | | | | | | [phone] | | | | | | | | +--------+ + + + + documented as of this encounter Visit Diagnoses + + | Diagnosis | + + | 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
--- NOTE | 2019-12-26 09:15 | EKG ---
[facility] [address] [facility] [place] [address] Signed Sinus tachycardia Possible Left atrial enlargement Left axis deviation Nonspecific ST and T wave abnormality Abnormal ECG When compared with ECG of 21-DEC-2019 23:39, No significant change was found Confirmed by JACKIE DOLAN MD ([id number]) on 12/26/2019 9:14:51 AM Electronically Signed By: JACKIE DOLAN MD 12/26/19 0915 PATIENT NAME: CONOR LOUISE Electrocardiogram DATE OF : [birth year] PHYSICIAN: JACKIE DOLAN MD REPORT #: [id number] REPORT IS CONFIDENTIAL AND NOT TO BE RELEASED WITHOUT AUTHORIZATION
== END 2019-12-25 23:36 | disposition home or self-care (01) ==
LOC: ED 21:09
DX: R07.89 Other chest pain (principal); F32.9 Major depressive disorder, single episode, unspecified; R77.8 Other specified abnormalities of plasma proteins; N18.6 End stage renal disease; Z99.2 Dependence on renal dialysis; Z91.15 Patient's noncompliance with renal dialysis; Z87.891 Personal history of nicotine dependence; Z88.5 Allergy status to narcotic agent; Z88.8 Allergy status to other drugs, medicaments and biological substances; Z91.041 Radiographic dye allergy status; Z79.899 Other long term (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
CPT/HCPCS: 71045; 80053; 84484; 85025; 93005; 93010; 96374; 99285-25; J2405

== ENCOUNTER 2020-01-11 21:34 | Emergency (ER) | payer MEDICARE, OTHER ==
[~2020-01-11] VITALS: Ht 170.2 cm; Wt 73.9 kg
--- OUTSIDE RECORDS SUMMARY | 2020-01-11 21:38 | XMS ---
PreManage Notification: CONOR LOUISE Security Sweater Operator Events No recent Security Events currently on file CRITERIA MET - [facility] - Has Care Guidelines - [facility] - 2 Visits in 30 Days CARE PROVIDERS TIEN NICHOLSON Internal Medicine 05/28/2018-Current PHONE: Unknown Karena has no Care Guidelines for this patient. Care History Medical/Surgical 09/24/2019 [facility], patient has been non compliant, missing every appointment for September (09/03,3,,,).\T\nbsp; Laura at [facility] stated patient has been keeping scheduled appointments with them.\ T\nbsp; Left voice mail for return call from patient to see if there is any way I can assist in following through with dialysis. 04/15/2019 [facility] Patient still non compliant.\T\nbsp; Has made attempts to stay for full dialysis treatment, but still having anxiety that prevents her from sticking it out.\T\nbsp;\T\nbsp; Next scheduled appointment is 04/23/[address] Lind. 03/13/2019 [facility] Patient has history of anxiety when going [...] up visit. Timothy VISIT COUNT (12 MO.) 4 [facility] 9 [facility] [place] TOTAL 13 NOTE: Visits indicate total known visits. ED/C VISIT TRACKING (12 MO.) 01/11/2020 21:35 [facility] [place] TYPE: Emergency COMPLAINT: - CHEST PAIN,VOMITING 12/25/2019 21:09 [facility] [place] TYPE: Emergency COMPLAINT: - CHEST PAIN DIAGNOSES: - Allergy status to other drugs, medicaments and biological substances - Personal history of nicotine dependence - Other specified abnormalities of plasma proteins - End stage renal disease - Dependence on renal dialysis - Other chest pain - Radiographic dye allergy status - Major depressive disorder, single episode, unspecified - Allergy status to narcotic agent - Patient's noncompliance with renal dialysis - Other group home (current) drug therapy 12/21/2019 22:45 [facility] TYPE: Emergency COMPLAINT: - CHEST TIGHTNESS/SOB/NAUSEA DIAGNOSES: - Allergy status to other drugs, medicaments and biological substances - Radiographic dye allergy status - Personal history of nicotine dependence - Chronic kidney disease, unspecified - Other group home (current) drug therapy - Shortness of breath - Allergy status to narcotic agent 10/13/2019 22:41 [facility] TYPE: Emergency DIAGNOSES: - Shortness of Breath - Dependence on renal dialysis - Pleural effusion, not elsewhere classified - End stage renal disease 09/22/2019 20:44 [facility] TYPE: Emergency COMPLAINT: - STABBING RIB PAIN DIAGNOSES: - Radiographic dye allergy status - Other group home (current) drug therapy - Allergy status to other drugs, medicaments and biological substances - Other chest pain 07/14/2019 15:26 [facility] TYPE: Emergency DIAGNOSES: - Medical Problem (Major) - Dependence on renal dialysis - Acute pulmonary edema - HD - Shortness of breath - End stage renal disease 07/14/2019 10:36 [facility] TYPE: Emergency COMPLAINT: - CHEST PAIN, SOB DIAGNOSES: - Anxiety disorder, unspecified - Allergy status to analgesic agent - Other terminal computer operator (current) drug therapy - Pleural effusion, not elsewhere classified - Shortness of breath - Patient's noncompliance with renal dialysis - Hypoxemia - Radiographic dye allergy status - Allergy status to other drugs, medicaments and biological substances - Fluid overload, unspecified - Chronic kidney disease, unspecified 04/18/2019 11:38 [facility] TYPE: Emergency DIAGNOSES: - End [...] pain - Allergy status to narcotic agent - Other terminal computer operator (current) drug therapy - Pleural effusion, not elsewhere classified - Patient's noncompliance with renal dialysis - Radiographic dye allergy status - Allergy status to other drugs, medicaments and biological substances - Dependence on renal dialysis - Heart failure, unspecified 03/12/2019 22:47 [facility] [place] TYPE: Emergency COMPLAINT: - CHEST PAIN/SOB DIAGNOSES: - Dependence on renal dialysis - Allergy status to narcotic agent - Other group home (current) drug therapy - Radiographic dye allergy status - Allergy status to other drugs, medicaments and biological substances - Chest pain, unspecified - Patient's other noncompliance with medication regimen - Personal history of nicotine dependence - Pleural effusion, not elsewhere classified - End stage renal disease 03/08/2019 02:36 [facility] TYPE: Emergency COMPLAINT: - SOB DIAGNOSES: - Allergy status to narcotic agent - Allergy status to other drugs, medicaments and biological substances - Dependence on renal dialysis - Radiographic dye allergy status - Other group home (current) drug therapy - End stage renal disease - Hyperkalemia - Heart failure, unspecified - Heart failure, unspecified - Shortness of breath 02/17/2019 23:25 [facility] TYPE: Emergency COMPLAINT: - SOB/RASH DIAGNOSES: - Chronic kidney disease, unspecified - Allergy status to other drugs, medicaments and biological substances - Allergy status to narcotic agent - Radiographic dye allergy status - Other group home (current) drug therapy - Cough - Fluid overload, unspecified 01/23/2019 22:10 [facility] TYPE: Emergency DIAGNOSES: - Shortness of breath - Shortness of Breath - Dependence on renal dialysis - End stage renal disease - Pleural effusion, not elsewhere classified INPATIENT VISIT TRACKING (12 MO.) 07/14/2019 15:26 [facility] TYPE: Internal Medicine DIAGNOSES: - Pleural effusion, not elsewhere classified - End stage renal disease - Acute pulmonary edema - 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ive) heart failure - Acute and chronic respiratory failure with hypoxia - Acute on chronic combined systolic (congestive) and diastolic (congestive) heart failure - Shortness of breath - Other specified personal risk factors, not elsewhere classified - Patient's noncompliance with other medical treatment and regimen - Dependence on renal dialysis 04/18/2019 11:38 [facility] TYPE: Internal Medicine DIAGNOSES: - Fluid overload, unspecified - End stage renal disease - Patient's noncompliance with renal dialysis - Other specified personal risk factors, not elsewhere classified - Essential (primary) hypertension - Other disorders of phosphorus metabolism - Dependence on renal dialysis - Pleural effusion, not elsewhere classified - Hyperkalemia - Acute on chronic combined systolic (congestive) and diastolic (congestive) heart failure - Chondrocostal junction syndrome [Tietze] - Anemia in chronic kidney disease - 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ive) heart failure [facility]23/2019 22:10 [facility] TYPE: Internal Medicine DIAGNOSES: - Pleural effusion, not elsewhere classified - Other disorders of plasma-protein metabolism, not elsewhere classified - End stage renal disease - Shortness of breath - Patient's noncompliance with renal dialysis - Other disorders of phosphorus metabolism - Acute respiratory distress - Patient's noncompliance with other medical treatment and regimen - Anemia in chronic kidney disease - Other specified personal risk factors, not elsewhere classified - Dependence on renal dialysis [email or web address]
--- NOTE | 2020-01-12 14:13 | EKG ---
[facility] [address] [place] [address] Signed Sinus tachycardia Left axis deviation Abnormal ECG When compared with ECG of 25-DEC-2019 21:36, No significant change was found Confirmed by JACKIE DOLAN MD ([id number]) on 01/12/2020 2:13:01 PM Electronically Signed By: JACKIE DOLAN MD 01/12/20 1413 PATIENT NAME: CONOR LOUISE Electrocardiogram DATE OF : [birth year] PHYSICIAN: JACKIE DOLAN MD REPORT #: [id number] REPORT IS CONFIDENTIAL AND NOT TO BE RELEASED WITHOUT AUTHORIZATION
== END 2020-01-11 23:54 | disposition home or self-care (01) ==
LOC: ED 21:34
DX: I50.9 Heart failure, unspecified (principal); N18.6 End stage renal disease; Z91.19 Patient's noncompliance with other medical treatment and regimen; Z87.891 Personal history of nicotine dependence; Z88.8 Allergy status to other drugs, medicaments and biological substances; Z88.5 Allergy status to narcotic agent; Z91.041 Radiographic dye allergy status; Z79.899 Other long term (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
CPT/HCPCS: 70450; 71046; 72125; 80053; 83735; 85025; 93005; 93010; 96374; 99285-25; J2405

== ENCOUNTER 2020-02-06 18:30 | Emergency (ER) | payer MEDICARE, OTHER ==
[~2020-02-06] VITALS: Ht 170.2 cm; Wt 79.4 kg
--- OUTSIDE RECORDS SUMMARY | 2020-02-06 18:34 | XMS ---
PreManage Notification: CONOR LOUISE Security Revenue Stamper Events No recent Security Events currently on file CRITERIA MET - 6 ED Visits in 6 Months - [facility] - Has Care Guidelines - [facility] - 2 Visits in 30 Days CARE PROVIDERS TIEN NICHOLSON Internal Medicine 05/28/2018-Current PHONE: Unknown Karena has no Care Guidelines for this patient. Care History Medical/Surgical 09/24/2019 [facility] Per [facility], patient has been non compliant, missing every appointment for September (09/03,3,,,).\T\nbsp; Laura at [facility] stated patient has been keeping scheduled appointments with them.\ T\nbsp; Left voice mail for return call from patient to see if there is any way I can assist in following through with dialysis. 04/15/2019 [facility] Patient still non compliant.\T\nbsp; Has made attempts to stay for full dialysis treatment, but still having anxiety that prevents her from sticking it out.\T\nbsp;\T\nbsp; Next scheduled appointment is 04/23/[address] Lind. 03/13/2019 [facility] Patient has history of anxiety when going through 4 hours of dialysis.\T\nbsp; I asked her if she needed company on next dialysis visit and she said no.\T\ nbsp; Patient stated that she is working with PCP to find best Rx for anxiety. Next scheduled visit with PCP Gavin is not until 07/16/2019.\T\nbsp; Pt needs to make ED follow up visit. iTmothy VISIT COUNT (12 MO.) 3 [facility] 10 [facility] [place] TOTAL 13 NOTE: Visits indicate total known visits. ED/UCC VISIT TRACKING (12 MO.) 02/06/2020 18:31 [facility] [place] TYPE: Emergency COMPLAINT: - ABDOMINAL PAIN 01/11/2020 21:35 [facility] [place] TYPE: Emergency COMPLAINT: - CHEST PAIN,VOMITING DIAGNOSES: - Patient's noncompliance with other medical treatment and regimen - Personal history of nicotine dependence - Radiographic dye allergy status - End stage renal disease - Heart failure, unspecified - Other prison (current) drug therapy - Chest pain, unspecified - Allergy status to narcotic agent - Allergy status to other drugs, medicaments and biological substances 12/25/2019 21:09 [facility] [place] TYPE: Emergency [...] Patient's noncompliance with renal dialysis - Other prison (current) drug therapy 12/21/2019 22:45 [facility] [place] TYPE: Emergency COMPLAINT: - CHEST TIGHTNESS/SOB/NAUSEA DIAGNOSES: - Allergy status to other drugs, medicaments and biological substances - Radiographic dye allergy status - Personal history of nicotine dependence - Chronic kidney disease, unspecified - Other prison (current) drug therapy - Shortness of breath - Allergy status to narcotic agent 10/13/2019 22:41 [facility] TYPE: Emergency DIAGNOSES: - Shortness of Breath - Dependence on renal dialysis - Pleural effusion, not elsewhere classified - End stage renal disease 09/22/2019 20:44 [facility] TYPE: Emergency COMPLAINT: - STABBING RIB PAIN DIAGNOSES: - Radiographic dye allergy status - Other prison (current) drug therapy - Allergy status to other drugs, medicaments and biological substances - Other chest pain 07/14/2019 15:26 [facility] TYPE: Emergency DIAGNOSES: - Medical Problem (Major) - Dependence on renal dialysis - Acute pulmonary edema - HD - Shortness of breath - End stage renal disease 07/14/2019 10:36 [facility] [place] TYPE: Emergency COMPLAINT: - CHEST PAIN, SOB DIAGNOSES: - Anxiety disorder, unspecified - Allergy status to analgesic agent - Other prison (current) drug therapy - Pleural effusion, not elsewhere classified - Shortness of breath - Patient's noncompliance with renal dialysis - Hypoxemia - Radiographic dye allergy status - Allergy status to other drugs, medicaments and biological substances - Fluid overload, unspecified - Chronic kidney disease, unspecified 04/18/2019 11:38 [facility] TYPE: Emergency DIAGNOSES: - End stage [...] Allergy status to narcotic agent - Other parts counterman (current) drug therapy [...] Allergy status to narcotic agent - Other prison (current) drug therapy - Radiographic dye allergy [...] Other parts counterman (current) drug therapy - End stage renal [...] Other parts counterman (current) drug therapy - Cough - Fluid overload, unspecified INPATIENT VISIT TRACKING (12 MO.) 07/14/2019 15:26 [facility] TYPE: Internal Medicine DIAGNOSES: - Pleural [...] - Dependence on renal dialysis 04/18/2019 11:38 [facility] TYPE: Internal Medicine DIAGNOSES: - Fluid [...] systolic (congestive) and diastolic (congestive) heart failure [email or web address]
[2020-02-06] MEDS ORDERED: CITALOPRAM HBR40 MG PO (18:51)
== END 2020-02-06 20:54 | disposition home or self-care (01) ==
LOC: ED 18:30
DX: E87.70 Fluid overload, unspecified (principal); Z20.828 Contact with and (suspected) exposure to other viral communicable diseases; Z87.891 Personal history of nicotine dependence; Z88.5 Allergy status to narcotic agent; Z88.8 Allergy status to other drugs, medicaments and biological substances; Z79.899 Other long term (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; Z91.041 Radiographic dye allergy status
CPT/HCPCS: 71045; 74176; 80053; 83690; 83735; 83880; 84703; 85025; 96374; 96375; 99284-25; C9803; J2270; J2405; U0003

== ENCOUNTER 2020-02-19 20:28 | Emergency (ER) | payer MEDICARE, OTHER ==
[~2020-02-19] VITALS: Ht 170.2 cm; Wt 72.7 kg
[~2020-02-19 20:28] MED LIST changes: +CITALOPRAM HBR40 MG PO
--- OUTSIDE RECORDS SUMMARY | 2020-02-19 20:30 | XMS ---
PreManage Notification: CONOR LOUISE Security Type Copyist Events No recent Security Events currently on file CRITERIA MET - 6 ED Visits in 6 Months - [facility] - Has Care Guidelines - [facility] - 2 Visits in 30 Days CARE PROVIDERS TIEN NICHOLSON Internal Medicine 05/28/2018-Current PHONE: Unknown Karena has no Care Guidelines for this patient. Care History Medical/Surgical 09/24/2019 [facility] Per [facility], patient has been non compliant, missing every appointment for September (09/03,3,,,).\T\nbsp; Laura at [facility] stated patient has been keeping scheduled appointments with them.\ T\nbsp; Left voice mail for return call from patient to see if there is any way I can assist in following through with dialysis. 04/15/2019 [facility] Patient still non compliant.\T\nbsp; Has made attempts to stay for full dialysis treatment, but still having anxiety that prevents her from sticking it out.\T\nbsp;\T\nbsp; Next scheduled appointment is 04/23/[address] Lind. 03/13/2019 [facility] Patient has history of anxiety [...] visit. Timothy VISIT COUNT (12 MO.) 4 [facility] 10 [facility] TOTAL 14 NOTE: Visits indicate total known visits. ED/C VISIT TRACKING (12 MO.) 02/19/2020 20:29 [facility] [place] TYPE: Emergency COMPLAINT: - BLOODY NOSE 02/08/2020 17:16 [facility] TYPE: Emergency DIAGNOSES: - Edema - Generalized edema - Patient's noncompliance with other medical treatment and regimen - Fluid overload, unspecified - Pleural effusion, not elsewhere classified - Shortness of Breath 02/06/2020 18:31 [facility] TYPE: Emergency COMPLAINT: - ABDOMINAL PAIN DIAGNOSES: - Left lower quadrant pain - Contact with and (suspected) exposure to other viral communicable diseases - Other prison (current) drug therapy - Personal history of nicotine dependence - Allergy status to other drugs, medicaments and biological substances - Fluid overload, unspecified - Allergy status to narcotic agent - Radiographic dye allergy status 01/11/2020 21:35 [facility] TYPE: Emergency COMPLAINT: - CHEST PAIN,VOMITING DIAGNOSES: - Patient's noncompliance with other medical treatment and regimen - Cervicalgia - Personal history of nicotine dependence - Unspecified injury of head, initial encounter - Patient's noncompliance with renal dialysis - Radiographic dye allergy status - End stage renal disease - Unspecified fall, initial encounter - Heart failure, unspecified - Other business continuity management director (current) drug therapy - Chest pain, unspecified [...] Patient's noncompliance with renal dialysis - Other business continuity management director (current) drug therapy 12/21/2019 22:45 [facility] TYPE: Emergency COMPLAINT: - CHEST TIGHTNESS/SOB/NAUSEA DIAGNOSES: - Allergy status to other drugs, medicaments and biological substances - Radiographic dye allergy status - Personal history of nicotine dependence - Chronic kidney disease, unspecified - Other prison (current) drug therapy - Shortness of breath - Allergy status to narcotic agent 10/13/2019 22:41 [facility] TYPE: Emergency DIAGNOSES: - Shortness of Breath - Dependence on renal dialysis - Pleural effusion, not elsewhere classified - End stage renal disease 09/22/2019 20:44 [facility] [place] TYPE: Emergency COMPLAINT: - STABBING RIB PAIN DIAGNOSES: - Radiographic dye allergy status - Other business continuity management director (current) drug therapy - Allergy status to other drugs, medicaments and biological substances - Other chest pain 07/14/2019 15:26 [facility] TYPE: Emergency DIAGNOSES: - Medical [...] - Chronic kidney disease, unspecified 04/18/2019 11:38 [facility] TYPE: Emergency DIAGNOSES: - End [...] - Heart failure, unspecified 03/12/2019 22:47 [facility] TYPE: Emergency COMPLAINT: - CHEST PAIN/SOB DIAGNOSES: - Dependence on renal dialysis - Allergy status to narcotic agent - Other business continuity management director (current) drug therapy - Radiographic dye allergy [...] - Other prison (current) drug therapy - End stage renal disease - Hyperkalemia - Heart failure, unspecified - Heart failure, unspecified - Shortness of breath INPATIENT VISIT TRACKING (12 MO.) [facility]2020 [facility] Internal Medicine DIAGNOSES: - Hypertensive urgency - Other disorders of phosphorus metabolism - Pleural effusion, not elsewhere classified - Acute pulmonary edema - Generalized edema - End stage renal disease - Fluid overload, unspecified - Patient's noncompliance with other medical treatment and regimen - Dependence on renal dialysis 07/14/2019 15:26 [facility] TYPE: Internal Medicine DIAGNOSES: - Pleural effusion, [...] renal dialysis 04/18/2019 11:38 [facility] TYPE: Internal Medicine DIAGNOSES: - Fluid overload, [...] systolic (congestive) and diastolic (congestive) heart failure [email or web address]
== END 2020-02-20 00:34 | disposition home or self-care (01) ==
LOC: ED 20:28
DX: R04.0 Epistaxis (principal); Z87.891 Personal history of nicotine dependence; Z88.8 Allergy status to other drugs, medicaments and biological substances; Z88.5 Allergy status to narcotic agent; Z91.041 Radiographic dye allergy status; Z79.899 Other long term (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
CPT/HCPCS: 30903; 99283-25

== ENCOUNTER 2020-03-05 01:15 | Emergency (ER) | payer MEDICARE, OTHER ==
[~2020-03-05] VITALS: Ht 170.2 cm; Wt 77.2 kg
--- OUTSIDE RECORDS SUMMARY | 2020-03-05 01:18 | XMS ---
PreManage Notification: CONOR LOUISE Security Bender Machine Events No recent Security Events currently on file CRITERIA MET - 6 ED Visits in 6 Months - [facility] - Has Care Guidelines - [facility] - 2 Visits in 30 Days CARE PROVIDERS TIEN NICHOLSON Internal Medicine 05/28/2018-Current PHONE: Unknown Karena has no Care Guidelines for this patient. Care History Medical/Surgical 09/24/2019 [facility] Per [facility], patient has been non compliant, missing every appointment for September (09/03,3,,,).\T\nbsp; Laura at [facility] stated patient has been keeping scheduled appointments with them.\ T\nbsp; Left voice mail for return call from patient to see if there is any way I can assist in following through with dialysis. 04/15/2019 [facility] Patient still non compliant.\T\nbsp; Has made attempts to stay for full dialysis treatment, but still having anxiety that prevents her from sticking it out.\T\nbsp;\T\nbsp; Next scheduled appointment is 04/23/[address] Lind. 03/13/2019 [facility] Patient has history of anxiety when going [...] visit. Timothy VISIT COUNT (12 MO.) 4 [facility] 11 [facility] [place] TOTAL 15 NOTE: Visits indicate total known visits. ED/C VISIT TRACKING (12 MO.) 03/05/2020 01:15 [facility] [place] TYPE: Emergency COMPLAINT: - BLOODY NOSE 02/19/2020 20:29 [facility] TYPE: Emergency COMPLAINT: - BLOODY NOSE DIAGNOSES: - Allergy status to other drugs, medicaments and biological substances - Epistaxis - Personal history of nicotine dependence - Allergy status to narcotic agent - Radiographic dye allergy status - Other fpc (current) drug therapy 02/08/2020 17:16 [facility] TYPE: Emergency [...] to other viral communicable diseases - Other terminal operations supervisor (current) drug therapy - Personal history of nicotine dependence - Allergy status to other drugs, medicaments and biological substances - Fluid overload, unspecified - Allergy status to narcotic agent - Radiographic dye allergy status 01/11/2020 21:35 [facility] [place] TYPE: Emergency COMPLAINT: - CHEST PAIN,VOMITING DIAGNOSES: - Patient's noncompliance with other medical treatment and regimen - Cervicalgia - Personal history of nicotine dependence - Unspecified injury of head, initial encounter - Patient's noncompliance with renal dialysis - Radiographic dye allergy status - End stage renal disease - Unspecified fall, initial encounter - Heart failure, unspecified - Other terminal operations supervisor (current) drug therapy - Chest pain, unspecified [...] Patient's noncompliance with renal dialysis - Other fpc (current) drug therapy 12/21/2019 22:45 [facility] [place] TYPE: Emergency COMPLAINT: - CHEST TIGHTNESS/SOB/NAUSEA DIAGNOSES: - Allergy status to other drugs, medicaments and biological substances - Radiographic dye allergy status - Personal history of nicotine dependence - Chronic kidney disease, unspecified - Other fpc (current) drug therapy - Shortness of breath - Allergy status to narcotic agent 10/13/2019 22:41 [facility] TYPE: Emergency DIAGNOSES: - Shortness of Breath - Dependence on renal dialysis - Pleural effusion, not elsewhere classified - End stage renal disease 09/22/2019 20:44 [facility] TYPE: Emergency COMPLAINT: - STABBING RIB PAIN DIAGNOSES: - Radiographic dye allergy status - Other terminal operations supervisor (current) drug therapy - Allergy status to [...] status to analgesic agent - Other terminal operations supervisor (current) drug therapy - Pleural effusion, not [...] status to narcotic agent - Other terminal operations supervisor (current) drug therapy - Pleural effusion, not [...] Allergy status to narcotic agent - Other fpc (current) drug therapy - Radiographic dye allergy [...] - Radiographic dye allergy status - Other terminal operations supervisor (current) drug therapy - End stage renal disease - Hyperkalemia - Heart failure, unspecified - Heart failure, unspecified - Shortness of breath INPATIENT VISIT TRACKING (12 MO.) 02/08/2020 17:16 [facility] TYPE: Internal Medicine DIAGNOSES: - Hypertensive urgency - Other disorders of phosphorus metabolism - Pleural effusion, not elsewhere classified - Acute pulmonary edema - Generalized edema - End stage renal disease - Anemia in chronic kidney disease - Fluid overload, unspecified - Patient's noncompliance with other medical treatment and regimen - Dependence on renal dialysis 07/14/2019 15:26 [facility] TYPE: Internal Medicine DIAGNOSES: [...] - Dependence on renal dialysis 04/18/2019 11:38 [facility] TYPE: Internal Medicine DIAGNOSES: [...] systolic (congestive) and diastolic (congestive) heart failure [email or web address]
[2020-03-05] MEDS ORDERED: SYMBICORT 80-10.2 GM INH (01:32)
[2020-03-05] MEDS ORDERED: KEFLEX500 MG PO (02:40)
== END 2020-03-05 03:20 | disposition home or self-care (01) ==
LOC: ED 01:15
DX: R04.0 Epistaxis (principal); Z88.8 Allergy status to other drugs, medicaments and biological substances; Z88.5 Allergy status to narcotic agent; Z91.048 Other nonmedicinal substance allergy status; Z91.041 Radiographic dye allergy status; Z79.899 Other long term (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
CPT/HCPCS: 30903; 99283-25

== ENCOUNTER 2020-03-05 04:32 | Emergency (ER) | payer MEDICARE, OTHER ==
[~2020-03-05] VITALS: Ht 170.2 cm; Wt 77.2 kg
[~2020-03-05 04:32] MED LIST changes: +KEFLEX500 MG PO; +SYMBICORT 80-10.2 GM INH
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
== END 2020-03-05 06:05 | disposition home or self-care (01) ==
LOC: ED 04:32
PROC: 093K7ZZ Control Bleeding in Nasal Mucosa and Soft Tissue, Via Natural or Artificial Opening (ICD-10-PCS; principal; 2020-03-05)
DX: R04.0 Epistaxis (principal); Z88.8 Allergy status to other drugs, medicaments and biological substances; Z88.5 Allergy status to narcotic agent; Z91.048 Other nonmedicinal substance allergy status; Z91.041 Radiographic dye allergy status; Z79.899 Other long term (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
CPT/HCPCS: 30903; 99283-25

== ENCOUNTER 2020-03-08 00:26 | Emergency (ER) | payer MEDICARE, OTHER ==
[~2020-03-08] VITALS: Ht 170.2 cm; Wt 75.0 kg
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
--- NOTE | 2020-03-08 21:21 | EKG ---
[facility] [address] [place] [address] Signed Normal sinus rhythm Nonspecific T wave abnormality Prolonged QT Abnormal ECG When compared with ECG of 11-JAN-2020 21:44, No significant change was found Confirmed by MONROE WISEMAN MD ([id number]) on 03/08/2020 9:21:40 PM Electronically Signed By: MONROE WISEMAN MD 03/08/202120 PATIENT NAME: CONOR LOUISE MAGALY Electrocardiogram DATE OF : 89 PHYSICIAN: MONROE WISEMAN MD REPORT #: [id number] REPORT IS CONFIDENTIAL AND NOT TO BE RELEASED WITHOUT AUTHORIZATION
== END 2020-03-09 03:30 | disposition short-term general hospital (02) ==
LOC: ED 00:26
DX: R07.89 Other chest pain (principal); E87.70 Fluid overload, unspecified; D64.9 Anemia, unspecified; R06.00 Dyspnea, unspecified; E83.39 Other disorders of phosphorus metabolism; Z20.822 Contact with and (suspected) exposure to COVID-19; Z87.891 Personal history of nicotine dependence; Z79.899 Other long term (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; Z88.8 Allergy status to other drugs, medicaments and biological substances; Z88.5 Allergy status to narcotic agent; Z91.048 Other nonmedicinal substance allergy status; Z91.041 Radiographic dye allergy status
CPT/HCPCS: 36430; 71045; 74176; 80053; 83690; 83735; 83880; 84100; 84484; 84703; 85025; 85610; 85730; 86850; 86900; 86901; 86920; 93005; 93010; 96374; 96375; 99285-25; C9803; J1170; J2270; J2405; J2550; P9016; U0003

== ENCOUNTER 2020-04-24 18:43 | Emergency (ER) | payer OTHER, MEDICARE ==
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
== END 2020-04-24 20:39 | disposition home or self-care (01) ==
LOC: ED 18:43
DX: S00.03XA Contusion of scalp, initial encounter (principal); Z99.2 Dependence on renal dialysis; Z87.891 Personal history of nicotine dependence; Z91.041 Radiographic dye allergy status; Z88.8 Allergy status to other drugs, medicaments and biological substances; Z91.048 Other nonmedicinal substance allergy status; Z79.899 Other long term (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; V49.9XXA Car occupant (driver) (passenger) injured in unspecified traffic accident, initial encounter
CPT/HCPCS: 70450; 96374; 96375; 99284-25; J1170; J2405

== ENCOUNTER 2020-04-28 20:51 | Emergency (ER) | payer OTHER, MEDICARE ==
[~2020-04-28] VITALS: Ht 170.2 cm; Wt 75.0 kg
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
== END 2020-04-28 22:12 | disposition home or self-care (01) ==
LOC: ED 20:51
DX: S20.211A Contusion of right front wall of thorax, initial encounter (principal); S30.1XXA Contusion of abdominal wall, initial encounter; F17.200 Nicotine dependence, unspecified, uncomplicated; Z91.041 Radiographic dye allergy status; Z88.8 Allergy status to other drugs, medicaments and biological substances; Z91.048 Other nonmedicinal substance allergy status; Z79.899 Other long term (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; Z99.2 Dependence on renal dialysis
CPT/HCPCS: 71250; 74176; 99284-25

== ENCOUNTER 2020-07-10 10:43 | Emergency (ER) | payer MEDICARE, OTHER ==
[~2020-07-10] VITALS: Ht 170.2 cm; Wt 61.4 kg
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
[2020-07-10] MEDS ORDERED: NIFEDIPINE ER60 M1 PO (10:58)
[2020-07-10] MEDS ORDERED: CLONIDINE1 EAC1 TD (10:58)
--- NOTE | 2020-07-12 13:13 | EKG ---
[facility] [address] [place] [address] Signed Poor data quality, interpretation may be adversely affected Sinus rhythm When compared with ECG of 08-MAR-2020 00:34, Confirmed by JACKIE DOLAN MD ([id number]) on 07/12/2020 1:13:16 PM Electronically Signed By: JACKIE DOLAN MD 07/12/20 1313 PATIENT NAME: CONOR LOUISE Electrocardiogram DATE OF : [birth year] PHYSICIAN: JACKIE DOLAN MD REPORT #: [id number] REPORT IS CONFIDENTIAL AND NOT TO BE RELEASED WITHOUT AUTHORIZATION
== END 2020-07-10 13:34 | disposition short-term general hospital (02) ==
LOC: ED 10:43
DX: J96.90 Respiratory failure, unspecified, unspecified whether with hypoxia or hypercapnia (principal); N18.6 End stage renal disease; J90 Pleural effusion, not elsewhere classified; Z20.822 Contact with and (suspected) exposure to COVID-19; Z88.8 Allergy status to other drugs, medicaments and biological substances; Z88.5 Allergy status to narcotic agent; Z91.048 Other nonmedicinal substance allergy status; Z79.899 Other long term (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
CPT/HCPCS: 71045; 80053; 83735; 84484; 84703; 85025; 85610; 85730; 96374; 96375; 96376; 99285-25; C9803; J0360; J2060; J2270; U0003

== ENCOUNTER 2020-07-25 03:26 | Emergency (ER) | payer MEDICARE, OTHER ==
[~2020-07-25] VITALS: Ht 170.2 cm; Wt 61.2 kg
[~2020-07-25 03:26] MED LIST changes: +CLONIDINE1 EAC1 TD; +NIFEDIPINE ER60 M1 PO
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
[2020-07-25] MEDS ORDERED: DILAUDID2 MG PO (04:07)
--- NOTE | 2020-07-26 11:31 | EKG ---
[facility] [address] [facility] [place] [address] Signed Sinus tachycardia Nonspecific ST and T wave abnormality Abnormal ECG When compared with ECG of 10-JUL-2020 11:02, Criteria for Septal infarct are no longer present ST now depressed in Lateral leads T wave inversion less evident in Anterior leads QT has shortened Confirmed by JACKIE DOLAN MD ([id number]) on 07/26/2020 11:31:25 AM Electronically Signed By: JACKIE DOLAN MD 07/26/20 1131 PATIENT NAME: CONOR LOUISE Electrocardiogram DATE OF : [birth year] PHYSICIAN: JACKIE DOLAN MD REPORT #: [id number] REPORT IS CONFIDENTIAL AND NOT TO BE RELEASED WITHOUT AUTHORIZATION
== END 2020-07-25 04:35 | disposition home or self-care (01) ==
LOC: ED 03:26
DX: G89.18 Other acute postprocedural pain (principal); R07.9 Chest pain, unspecified; Z88.8 Allergy status to other drugs, medicaments and biological substances; Z88.5 Allergy status to narcotic agent; Z91.048 Other nonmedicinal substance allergy status; Z91.041 Radiographic dye allergy status; Z79.899 Other long term (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
CPT/HCPCS: 93005; 93010; 99284-25

== ENCOUNTER 2020-08-08 18:30 | Emergency (ER) | payer MEDICARE, OTHER ==
[~2020-08-08] VITALS: Ht 170.2 cm; Wt 61.2 kg
[~2020-08-08 18:30] MED LIST changes: +DILAUDID2 MG PO
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
--- NOTE | 2020-08-09 20:12 | EKG ---
[facility] [address] [place], [place] [address] Signed Normal sinus rhythm Normal ECG Confirmed by JACKIE DOLAN MD ([id number]) on 08/09/2020 8:12:05 PM Electronically Signed By: JACKIE DOLAN MD 08/09/202011 PATIENT NAME: CONOR LOUISE Electrocardiogram DATE OF : [birth year] PHYSICIAN: JACKIE DOLAN MD REPORT #: [id number] REPORT IS CONFIDENTIAL AND NOT TO BE RELEASED WITHOUT AUTHORIZATION
== END 2020-08-08 21:56 | disposition short-term general hospital (02) ==
LOC: ED 18:30
DX: D64.9 Anemia, unspecified (principal); Z99.2 Dependence on renal dialysis; J81.1 Chronic pulmonary edema; I25.2 Old myocardial infarction; Z91.041 Radiographic dye allergy status; Z88.5 Allergy status to narcotic agent; Z88.8 Allergy status to other drugs, medicaments and biological substances; Z91.048 Other nonmedicinal substance allergy status; Z79.899 Other long term (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; Z20.822 Contact with and (suspected) exposure to COVID-19
CPT/HCPCS: 71045; 80053; 83735; 84484; 85025; 93005; 93010; 96374; 96375; 99285-25; C9803; J1170; J2405; U0003

== ENCOUNTER 2020-08-28 19:01 | Emergency (ER) | payer MEDICARE, OTHER ==
[~2020-08-28] VITALS: Ht 170.2 cm; Wt 61.4 kg
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
== END 2020-08-28 20:42 | disposition left against medical advice (07) ==
LOC: ED 19:01
DX: D64.9 Anemia, unspecified (principal); I25.2 Old myocardial infarction; Z88.8 Allergy status to other drugs, medicaments and biological substances; Z88.5 Allergy status to narcotic agent; Z91.048 Other nonmedicinal substance allergy status; Z91.041 Radiographic dye allergy status; Z79.899 Other long term (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
CPT/HCPCS: 80053; 85025; 99284

== ENCOUNTER 2020-11-01 08:34 | Emergency (ER) | payer MEDICARE, OTHER ==
[~2020-11-01] VITALS: Ht 170.2 cm; Wt 81.3 kg
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
--- NOTE | 2020-11-01 12:47 | EKG ---
[facility] [address] [place], [place] [address] Signed Normal sinus rhythm Left axis deviation Nonspecific ST and T wave abnormality Abnormal ECG When compared with ECG of 08-AUG-2020 18:33, QRS axis shifted left Confirmed by REYNA POSEY DO ([id number]) on 11/01/2020 12:46:45 PM Electronically Signed By: REYNA POSEY DO 11/01/20 1247 PATIENT NAME: CONOR LOUISE MAGALY Electrocardiogram DATE OF : [birth year] PHYSICIAN: REYNA POSEY DO REPORT #: [id number] REPORT IS CONFIDENTIAL AND NOT TO BE RELEASED WITHOUT AUTHORIZATION
== END 2020-11-01 21:55 | disposition short-term general hospital (02) ==
LOC: ED 08:34
DX: U07.1 COVID-19 (principal); I50.9 Heart failure, unspecified; R77.8 Other specified abnormalities of plasma proteins; N18.6 End stage renal disease; Z99.2 Dependence on renal dialysis; Z91.041 Radiographic dye allergy status; Z88.8 Allergy status to other drugs, medicaments and biological substances; Z88.5 Allergy status to narcotic agent; Z91.048 Other nonmedicinal substance allergy status; Z79.899 Other long term (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
CPT/HCPCS: 71045; 80048; 80053; 84484; 85025; 93005; 93010; 96374; 96375; 96376; 99285-25; J1100; J1644; J2060; J2270; J2405; J2550; M0243; Q0244; U0003

== ENCOUNTER 2020-11-27 13:14 | Emergency (ER) | payer MEDICARE, OTHER ==
[~2020-11-27] VITALS: Ht 170.2 cm; Wt 70.5 kg
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
--- NOTE | 2020-11-27 18:52 | EKG ---
[facility] [address] [place], [place] [address] Signed Normal sinus rhythm Nonspecific ST and T wave abnormality Prolonged QT Abnormal ECG No previous ECGs available Confirmed by REYNA POSEY DO ([id number]) on 11/27/2020 6:51:58 PM Electronically Signed By: REYNA POSEY DO 11/27/201851 PATIENT NAME: CONOR LOUISE Electrocardiogram DATE OF : [birth year] PHYSICIAN: REYNA PSOEY DO REPORT #: [id number] REPORT IS CONFIDENTIAL AND NOT TO BE RELEASED WITHOUT AUTHORIZATION
== END 2020-11-27 22:02 | disposition short-term general hospital (02) ==
LOC: ED 13:14
DX: I21.4 Non-ST elevation (NSTEMI) myocardial infarction (principal); I16.0 Hypertensive urgency; I12.0 Hypertensive chronic kidney disease with stage 5 chronic kidney disease or end stage renal disease; N18.6 End stage renal disease; Z20.822 Contact with and (suspected) exposure to COVID-19; Z99.2 Dependence on renal dialysis; Z87.891 Personal history of nicotine dependence; Z91.041 Radiographic dye allergy status; Z91.048 Other nonmedicinal substance allergy status; Z88.8 Allergy status to other drugs, medicaments and biological substances; Z88.6 Allergy status to analgesic agent; Z79.899 Other long term (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
CPT/HCPCS: 70450; 71045; 80053; 83735; 84484; 85025; 93005; 93010; 96365; 96375; 96376; 99285-25; C9803; J0360; J1170; J2060; J2270; J2405; U0003

== ENCOUNTER 2020-12-11 05:31 | Emergency (ER) | payer MEDICARE, OTHER ==
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
--- NOTE | 2020-12-11 21:38 | EKG ---
[facility] [address] [place] [address] Signed Normal sinus rhythm ST \T\ T wave abnormality, consider lateral ischemia Abnormal ECG When compared with ECG of 27-NOV-2020 13:14, Vent. rate has decreased BY 31 BPM Nonspecific T wave abnormality no longer evident in Inferior leads Confirmed by REYNA POSEY DO ([id number]) on 12/11/2020 9:38:16 PM Electronically Signed By: REYNA POSEY DO 12/11/20 2138 PATIENT NAME: CONOR LOUISE Electrocardiogram DATE OF : [birth year] PHYSICIAN: REYNA POSEY DO REPORT #: [id number] REPORT IS CONFIDENTIAL AND NOT TO BE RELEASED WITHOUT AUTHORIZATION
== END 2020-12-11 08:05 | disposition home or self-care (01) ==
LOC: ED 05:31
DX: I13.0 Hypertensive heart and chronic kidney disease with heart failure and stage 1 through stage 4 chronic kidney disease, or unspecified chronic kidney disease (principal); N18.9 Chronic kidney disease, unspecified; I50.9 Heart failure, unspecified; R07.89 Other chest pain; R55 Syncope and collapse; I25.2 Old myocardial infarction; R79.89 Other specified abnormal findings of blood chemistry; Z99.2 Dependence on renal dialysis; Z87.891 Personal history of nicotine dependence; Z91.041 Radiographic dye allergy status; Z91.09 Other allergy status, other than to drugs and biological substances; Z88.6 Allergy status to analgesic agent; Z88.8 Allergy status to other drugs, medicaments and biological substances; Z79.899 Other long term (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
CPT/HCPCS: 71045; 80053; 80500; 84484; 84703; 85025; 93005; 93010; 96374; 99285-25; A9270; J2405

== ENCOUNTER 2020-12-24 13:41 | Emergency (ER) | payer MEDICARE, OTHER ==
[~2020-12-24] VITALS: Ht 170.2 cm; Wt 71.8 kg
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
--- NOTE | 2020-12-24 18:15 | EKG ---
[facility] [address] [place] [address] Signed Normal sinus rhythm Left axis deviation Minimal voltage criteria for LVH, may be normal variant Abnormal ECG No previous ECGs available Confirmed by JACKIE DOLAN MD ([id number]) on 12/24/2020 6:14:46 PM Electronically Signed By: JACKIE DOLAN MD 12/24/20 1815 PATIENT NAME: CONOR LOUISE Electrocardiogram DATE OF : [birth year] PHYSICIAN: AJCKIE DOLAN MD REPORT #: [id number] REPORT IS CONFIDENTIAL AND NOT TO BE RELEASED WITHOUT AUTHORIZATION
== END 2020-12-24 21:00 | disposition home or self-care (01) ==
LOC: ED 13:41
DX: E87.5 Hyperkalemia (principal); N18.9 Chronic kidney disease, unspecified; I25.2 Old myocardial infarction; Z20.822 Contact with and (suspected) exposure to COVID-19; Z87.891 Personal history of nicotine dependence; Z91.041 Radiographic dye allergy status; Z91.048 Other nonmedicinal substance allergy status; Z88.6 Allergy status to analgesic agent; Z88.8 Allergy status to other drugs, medicaments and biological substances; Z79.899 Other long term (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
CPT/HCPCS: 80048; 80053; 84132; 84484; 85007; 85025; 93005; 93010; 94644; 96365; 96375; 99285-25; C9803; J0610; J1170; J1815; J2405; U0003

== ENCOUNTER 2021-02-04 20:52 | Emergency (ER) | payer MEDICARE, OTHER ==
[~2021-02-04] VITALS: Ht 170.2 cm; Wt 74.5 kg
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
[2021-02-04] MEDS ORDERED: NITROGLYCERIN0.4 MG SL (21:13)
[2021-02-04] MEDS ORDERED: LOKELMA10 GM PO (21:14)
[2021-02-04] MEDS ORDERED: CLONIDINE HCL0.3 MG PO (21:14)
[2021-02-05] MEDS ORDERED: XANAX0.25 MG PO (00:26)
--- NOTE | 2021-02-05 07:10 | EKG ---
[facility] [address] [place] [address] Signed Normal sinus rhythm ST \T\ T wave abnormality, consider lateral ischemia Prolonged QT Abnormal ECG When compared with ECG of 24-DEC-2020 13:43, No significant change was found Confirmed by MONROE WISEMAN MD ([id number]) on 02/05/2021 7:10:17 AM Electronically Signed By: MONROE WISEMAN MD 02/05/21 0710 PATIENT NAME: CONOR LOUISE Electrocardiogram DATE OF : [birth year] PHYSICIAN: MONROE WISEMAN MD REPORT #: [id number] REPORT IS CONFIDENTIAL AND NOT TO BE RELEASED WITHOUT AUTHORIZATION
== END 2021-02-05 01:07 | disposition home or self-care (01) ==
LOC: ED 20:52
DX: I11.0 Hypertensive heart disease with heart failure (principal); I50.9 Heart failure, unspecified; I25.2 Old myocardial infarction; Z87.891 Personal history of nicotine dependence; Z88.8 Allergy status to other drugs, medicaments and biological substances; Z88.5 Allergy status to narcotic agent; Z91.048 Other nonmedicinal substance allergy status; Z91.041 Radiographic dye allergy status; Z79.899 Other long term (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
CPT/HCPCS: 71045; 76705; 80053; 83690; 83735; 84484; 85025; 93005; 93010; 96374; 96375; 96376; 99285-25; J1170; J2270; J2405

== ENCOUNTER 2021-02-18 02:40 | Emergency (ER) | payer MEDICARE, OTHER ==
[~2021-02-18] VITALS: Ht 170.2 cm; Wt 0.2 kg
[~2021-02-18 02:40] MED LIST changes: +CLONIDINE HCL0.3 MG PO; +LOKELMA10 GM PO; +NITROGLYCERIN0.4 MG SL; +XANAX0.25 MG PO
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
--- NOTE | 2021-02-19 07:17 | EKG ---
[facility] [address] [facility] [place] [address] Signed Normal sinus rhythm ST \T\ T wave abnormality, consider lateral ischemia Prolonged QT Abnormal ECG When compared with ECG of 04-FEB-2021 21:05, No significant change was found Confirmed by MONROE WISEMAN MD ([id number]) on 02/19/2021 7:17:20 AM Electronically Signed By: MONROE WISEMAN MD 02/19/21 0717 PATIENT NAME: CONOR LOUISE Electrocardiogram DATE OF : [birth year] PHYSICIAN: MONROE WISEMAN MD REPORT #: [id number] REPORT IS CONFIDENTIAL AND NOT TO BE RELEASED WITHOUT AUTHORIZATION
== END 2021-02-18 05:15 | disposition home or self-care (01) ==
LOC: ED 02:40
DX: R07.89 Other chest pain (principal); I25.2 Old myocardial infarction; Z87.891 Personal history of nicotine dependence; I50.9 Heart failure, unspecified; Z88.8 Allergy status to other drugs, medicaments and biological substances; Z88.5 Allergy status to narcotic agent; Z91.048 Other nonmedicinal substance allergy status; Z91.041 Radiographic dye allergy status; Z79.899 Other long term (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
CPT/HCPCS: 71045; 80048; 84484; 85025; 93005; 93010; 96374; 96375; 96376; 99285-25; J1170; J2550

== ENCOUNTER 2021-02-23 04:51 | Emergency (ER) | payer MEDICARE, OTHER ==
[~2021-02-23] VITALS: Ht 170.2 cm; Wt 74.5 kg
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
== END 2021-02-23 06:31 | disposition home or self-care (01) ==
LOC: ED 04:51
DX: S76.012A Strain of muscle, fascia and tendon of left hip, initial encounter (principal); S39.012A Strain of muscle, fascia and tendon of lower back, initial encounter; S16.1XXA Strain of muscle, fascia and tendon at neck level, initial encounter; W10.8XXA Fall (on) (from) other stairs and steps, initial encounter; I50.9 Heart failure, unspecified; I25.2 Old myocardial infarction; Z88.8 Allergy status to other drugs, medicaments and biological substances; Z88.5 Allergy status to narcotic agent; Z91.048 Other nonmedicinal substance allergy status; Z91.041 Radiographic dye allergy status; Z87.891 Personal history of nicotine dependence; Z79.899 Other long term (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
CPT/HCPCS: 70450; 71045; 72040; 72100; 73502; 96374; 99284-25; J1170

== ENCOUNTER 2021-03-19 10:19 | Emergency (ER) | payer MEDICARE, OTHER ==
[~2021-03-19] VITALS: Ht 170.2 cm; Wt 74.5 kg
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
[2021-03-19] MEDS ORDERED: VELTASSA8.4 GM PO (10:33)
--- NOTE | 2021-03-19 21:59 | EKG ---
[facility] [address] [facility] [place] [address] Signed Unusual P axis, possible ectopic atrial rhythm ST \T\ T wave abnormality, consider inferolateral ischemia Abnormal ECG When compared with ECG of 18-FEB-2021 02:50, Ectopic atrial rhythm has replaced Sinus rhythm T wave inversion now evident in Inferior leads Confirmed by MONROE WISEMAN MD ([id number]) on 03/19/2021 9:59:07 PM Electronically Signed By: MONROE WISEMAN MD 03/19/21 2159 PATIENT NAME: CONOR LOUISE Electrocardiogram DATE OF : [birth year] PHYSICIAN: MONROE WISEMAN MD REPORT #: [id number] REPORT IS CONFIDENTIAL AND NOT TO BE RELEASED WITHOUT AUTHORIZATION
== END 2021-03-19 11:55 | disposition home or self-care (01) ==
LOC: ED 10:19
DX: N18.9 Chronic kidney disease, unspecified (principal); E87.5 Hyperkalemia; R07.9 Chest pain, unspecified; I50.9 Heart failure, unspecified; I25.2 Old myocardial infarction; Z99.2 Dependence on renal dialysis; Z87.891 Personal history of nicotine dependence; Z88.5 Allergy status to narcotic agent; Z88.8 Allergy status to other drugs, medicaments and biological substances; Z91.041 Radiographic dye allergy status; Z91.048 Other nonmedicinal substance allergy status; Z79.899 Other long term (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; Z20.822 Contact with and (suspected) exposure to COVID-19
CPT/HCPCS: 71045; 80048; 80503; 84484; 85025; 93005; 93010; 96374; 99285-25; C9803; J2405; U0003

== ENCOUNTER → 2021-03-21 | Emergency (ER) | payer MEDICARE, OTHER ==
[~2021-03-21] VITALS: Ht 170.2 cm; Wt 77.0 kg
[~2021-03-21] MED LIST changes: +VELTASSA8.4 GM PO
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
--- NOTE | 2021-03-22 07:45 | EKG ---
[facility] [address] [place] [address] Signed Normal sinus rhythm Normal ECG When compared with ECG of 19-MAR-2021 10:31, Sinus rhythm has replaced Ectopic atrial rhythm Vent. rate has increased BY 32 BPM T wave inversion no longer evident in Inferior leads Confirmed by MONROE WISEMAN MD ([id number]) on 03/22/2021 7:44:55 AM Electronically Signed By: MONROE WSIEMAN MD 03/22/21 0745 PATIENT NAME: CONOR LOUISE Electrocardiogram DATE OF : [birth year] PHYSICIAN: MONROE WISEMAN MD REPORT #: [id number] REPORT IS CONFIDENTIAL AND NOT TO BE RELEASED WITHOUT AUTHORIZATION
== END ==
LOC: ED 06:23
DX: N18.9 Chronic kidney disease, unspecified (principal); E87.5 Hyperkalemia; I50.9 Heart failure, unspecified; Z99.2 Dependence on renal dialysis; I25.2 Old myocardial infarction; Z87.891 Personal history of nicotine dependence; Z88.8 Allergy status to other drugs, medicaments and biological substances; Z88.5 Allergy status to narcotic agent; Z91.048 Other nonmedicinal substance allergy status; Z79.51 Long term (current) use of inhaled steroids; Z79.899 Other long term (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
CPT/HCPCS: 80048; 80053; 80503; 84484; 85025; 96374; 96375; 99285-25; A9270; J1170; J1815

== ENCOUNTER → 2021-05-26 | Emergency (ER) | payer MEDICARE, OTHER ==
[~2021-05-26] VITALS: Ht 170.2 cm; Wt 96.4 kg
--- OUTSIDE RECORDS SUMMARY | 2021-05-26 01:12 | XMS ---
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 CRITERIA MET - 6 ED Visits in 6 Months - PDMP - ED - Positive COVID-19 Lab Result - OHA - Group Notification - [facility] - Has Care Guidelines CARE PROVIDERS TIEN NICHOLSON Internal Medicine 07/22/2020-Current PHONE: Unknown Guidelines Source: [facility] Guidelines Date: 12/14/2020 Other Information: Patient has long list of illnesses that she presents to ED for often. No follow up with PCP scheduled at this time. Care History Medical/Surgical 02/23/2021 [facility] Care Recommendation: - PLEASE REVIEW PDMP - SHEILA - USE EXTREME CAUTION IN GIVING NARCOTICS. - Avoid Discharge Narcotic prescriptions if at all possible. Physician discretion. 02/23/2021 [facility] Appropriate use of ER for fall on stairs. 12/28/2020 [facility] [place], stated Patient "has been good about going to dialysis". Patient does not respond to my calls. No follow up with PCP scheduled at this time. E.D. VISIT COUNT (12 MO.) [address] [place] TOTAL 19 NOTE: Visits indicate total known visits. 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 - Heart failure, unspecified - Hyperkalemia 03/19/2021 10:20 [facility] [place] TYPE: Emergency COMPLAINT: - CHEST PAIN,FLU SYMPTOMS DIAGNOSES: - Chronic kidney disease, unspecified - Allergy status to narcotic agent - Hyperkalemia - Other nonmedicinal substance allergy status - Radiographic dye allergy status - Old myocardial infarction - Personal history of nicotine dependence - Allergy status to other drugs, medicaments and biological substances - Chest pain, unspecified - 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 - Dependence on renal dialysis - Heart failure, unspecified 02/23/2021 04:51 [facility] [place] TYPE: Emergency COMPLAINT: - FALL DIAGNOSES: - Old myocardial infarction - Strain of muscle, fascia and tendon at neck level, initial encounter - Strain of muscle, fascia and tendon of left hip, initial encounter - Cervicalgia - Heart failure, unspecified - Allergy status to narcotic agent - Personal history of nicotine dependence - 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 - Radiographic dye [...] dependence - Old myocardial infarction - Other fci (current) drug therapy - Heart failure, unspecified 02/04/2021 20:53 [facility] [place] TYPE: Emergency COMPLAINT: - CHEST PAIN DIAGNOSES: - Allergy status to narcotic agent - Old myocardial infarction - Personal history of nicotine dependence - Radiographic dye allergy status - 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 - Heart failure, [...] substances - Old myocardial infarction - Other fci (current) drug therapy - Other nonmedicinal substance [...] Allergy status to analgesic agent - Other fci (current) drug therapy [...] substances - Other chest pain - Other fci (current) drug therapy - Hypertensive urgency - [...] Allergy status to analgesic agent - 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 11/01/2020 08:35 [facility] [place] TYPE: Emergency COMPLAINT: - SOB, ABD SWELLING DIAGNOSES: - Other nonmedicinal substance allergy status - Allergy status to narcotic agent - COVID-19 - Allergy status to other drugs, medicaments and biological substances - 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 - End stage renal disease - Heart failure, unspecified - Shortness of breath - Radiographic dye allergy status - Dependence on renal dialysis - Other specified abnormalities of plasma proteins 10/04/2020 04:41 [facility] TYPE: Emergency DIAGNOSES: - Heart failure, unspecified - End stage renal disease - Leg Swelling - Rectal Bleed - Chest Pain 09/26/2020 20:45 [facility] TYPE: Emergency DIAGNOSES: - Edema, unspecified - Chest Pain - Chronic diastolic (congestive) heart failure - End stage renal disease - Pulmonary hypertension, unspecified 08/28/2020 19:02 [facility] TYPE: Emergency COMPLAINT: - DIZZINESS,CHEST TIGHTNESS DIAGNOSES: - Allergy status to other drugs, medicaments and biological substances - Other nonmedicinal substance allergy status - Radiographic dye allergy status - 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 - Anemia, unspecified - Allergy status to narcotic agent - Old myocardial infarction 08/08/2020 18:30 [facility] TYPE: Emergency COMPLAINT: - HIGH BP DIAGNOSES: - Anemia, unspecified - Dependence on renal dialysis - Allergy status to narcotic agent - Chest pain, unspecified - Chronic pulmonary edema - Other nonmedicinal substance allergy status - Old myocardial infarction - Other fci (current) drug therapy - Radiographic dye allergy status - Allergy status to other drugs, medicaments and biological substances 07/25/2020 03:27 [facility] [place] TYPE: Emergency COMPLAINT: - CHEST PAIN, SHORTNESS OF BREATH DIAGNOSES: - Other fci (current) drug therapy - [...] - End stage renal disease - 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 TYPE: Internal [facility] DIAGNOSES: - Other chronic pain - Dependence on renal dialysis - Renovascular hypertension - Chronic respiratory failure with hypoxia - Chest pain, unspecified - Acute and chronic respiratory failure with hypoxia - End stage renal disease - Pulmonary hypertension, unspecified 11/28/2020 00:18 [facility] Jyoti DILL TYPE: Internal Medicine DIAGNOSES: - [...] - Chronic right heart failure 10/04/2020 04:41 [facility] Reji DILL TYPE: Internal Medicine DIAGNOSES: - Chronic right [...] - Hyperkalemia - Localized edema 08/28/2020 22:09 [facility] TYPE: Internal Medicine DIAGNOSES: - Chest pain, unspecified - Dependence on renal dialysis - Renovascular hypertension - Chronic pain syndrome - End stage renal disease - Anemia, unspecified 08/08/2020 23:16 [facility] TYPE: Internal Medicine DIAGNOSES: - Disorder of bone, unspecified - Anemia in chronic kidney disease - Essential (primary) hypertension - End stage renal disease - CP,SOB Pulmonary edema - Dependence on renal dialysis - Disorder of mineral metabolism, unspecified - Chronic kidney disease, unspecified 07/10/2020 15:57 [facility] TYPE: Medical [...] - Dependence on renal dialysis 06/12/2020 17:21 [facility]: Internal Medicine DIAGNOSES: - Epistaxis - [...] Hyperkalemia - Chronic pain syndrome - Hypoxemia [email or web address]
--- NOTE | 2021-05-26 17:17 | EKG ---
[facility] [address] [facility] [place] [address] Signed Normal sinus rhythm Nonspecific ST and T wave abnormality Prolonged QT Abnormal ECG When compared with ECG of 21-MAR-2021 06:31, No significant change was found Confirmed by JACKIE DOLAN MD ([id number]) on 05/26/2021 5:17:13 PM Electronically Signed By: JACKIE DOLAN MD 05/26/21 1717 PATIENT NAME: CONOR LOUISE Electrocardiogram DATE OF : [birth year] PHYSICIAN: JACKIE DOLAN MD REPORT #: [id number] REPORT IS CONFIDENTIAL AND NOT TO BE RELEASED WITHOUT AUTHORIZATION
--- NOTE | 2021-05-26 17:18 | EKG ---
[facility] [address] [place] [address] Signed Sinus rhythm with 1st degree AV block Otherwise normal ECG When compared with ECG of 26-MAY-2021 01:21, (Unconfirmed) No significant change was found Confirmed by JACKIE DOLAN MD ([id number]) on 05/26/2021 5:18:42 PM Electronically Signed By: JACKIE DOLAN MD 05/26/21 1718 PATIENT NAME: CONOR LOUISE Electrocardiogram DATE OF : [birth year] PHYSICIAN: JACKIE DOLAN MD REPORT #: [id number] REPORT IS CONFIDENTIAL AND NOT TO BE RELEASED WITHOUT AUTHORIZATION
== END ==
LOC: ED 01:09
DX: E87.5 Hyperkalemia (principal); J81.1 Chronic pulmonary edema; J90 Pleural effusion, not elsewhere classified; Z20.822 Contact with and (suspected) exposure to COVID-19; I11.0 Hypertensive heart disease with heart failure; I50.9 Heart failure, unspecified; I25.2 Old myocardial infarction; Z87.891 Personal history of nicotine dependence; Z88.8 Allergy status to other drugs, medicaments and biological substances; Z88.5 Allergy status to narcotic agent; Z91.048 Other nonmedicinal substance allergy status; Z91.041 Radiographic dye allergy status; Z79.899 Other long term (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
CPT/HCPCS: 36415; 71046; 80053; 80503; 83735; 84132; 84484; 84703; 85025; 93005; 93010; 94644; 96365; 96375; 96376; 99285-25; C9803; J0610; J1170; J1815; J2550; U0003

== ENCOUNTER 2021-08-24 14:13 | Emergency (ER) | payer MEDICARE, OTHER ==
[~2021-08-24] VITALS: Ht 170.2 cm; Wt 70.9 kg
[2021-08-24] MEDS ORDERED: HYDROXYZINE HCL50 MG PO (15:08)
== END 2021-08-24 16:42 | disposition home or self-care (01) ==
LOC: ED 14:13
DX: S60.221A Contusion of right hand, initial encounter (principal); W22.8XXA Striking against or struck by other objects, initial encounter; I13.2 Hypertensive heart and chronic kidney disease with heart failure and with stage 5 chronic kidney disease, or end stage renal disease; N18.6 End stage renal disease; I50.9 Heart failure, unspecified; Z99.2 Dependence on renal dialysis; Z87.891 Personal history of nicotine dependence; Z91.041 Radiographic dye allergy status; Z88.5 Allergy status to narcotic agent; Z88.8 Allergy status to other drugs, medicaments and biological substances; Z91.048 Other nonmedicinal substance allergy status
CPT/HCPCS: 73130; A9270

== ENCOUNTER 2021-11-23 05:47 | Emergency (ER) | payer MEDICARE, OTHER ==
[~2021-11-23] VITALS: Ht 170.2 cm; Wt 75.4 kg
[~2021-11-23 05:47] MED LIST changes: +HYDROXYZINE HCL50 MG PO
--- NOTE | 2021-11-25 19:25 | EKG ---
[facility] [address] [facility] [place] [address] Signed Normal sinus rhythm Abnormal QRS-T angle, consider primary T wave abnormality Abnormal ECG When compared with ECG of 09-AUG-2021 05:30, Inverted T waves have replaced nonspecific T wave abnormality in Lateral leads Confirmed by Octavio Shea MD () on 11/25/2021 7:25:08 PM Electronically Signed By: OCTAVIO SHEA MD 11/25/21 192 PATIENT NAME: CONOR LOUISE Electrocardiogram DATE OF : [birth year] PHYSICIAN: OCTAVIO SHEA MD REPORT #: [id number] REPORT IS CONFIDENTIAL AND NOT TO BE RELEASED WITHOUT AUTHORIZATION
== END 2021-11-23 07:12 | disposition home or self-care (01) ==
LOC: ED 05:47
DX: I13.2 Hypertensive heart and chronic kidney disease with heart failure and with stage 5 chronic kidney disease, or end stage renal disease (principal); I50.9 Heart failure, unspecified; N18.6 End stage renal disease; Z99.2 Dependence on renal dialysis; I25.2 Old myocardial infarction; Z87.891 Personal history of nicotine dependence; Z88.8 Allergy status to other drugs, medicaments and biological substances; Z88.5 Allergy status to narcotic agent; Z91.041 Radiographic dye allergy status; Z79.899 Other long term (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
CPT/HCPCS: 36415; 71045; 80053; 83690; 84484; 85025; 85060; 87502; 93005; 93010; 96374; 96375; 99285-25; J1200; J1885; J2405; U0003

== ENCOUNTER 2021-11-23 19:12 | Emergency (ER) | payer MEDICARE, OTHER ==
[~2021-11-23] VITALS: Ht 170.2 cm; Wt 75.3 kg
--- NOTE | 2021-11-25 19:55 | EKG ---
[facility] [address] [place] [address] Signed Sinus tachycardia Abnormal QRS-T angle, consider primary T wave abnormality Abnormal ECG When compared with ECG of 23-NOV-2021 06:03, (Unconfirmed) No significant change was found Confirmed by Octavio Shea MD () on 11/25/2021 7:55:17 PM Electronically Signed By: OCTAVIO SHEA MD 11/25/211954 PATIENT NAME: CONOR LOUISE Electrocardiogram DATE OF : [birth year] PHYSICIAN: OCTAVIO SHEA MD REPORT #: [id number] REPORT IS CONFIDENTIAL AND NOT TO BE RELEASED WITHOUT AUTHORIZATION
== END 2021-11-23 21:56 | disposition home or self-care (01) ==
LOC: ED 19:12
DX: I13.2 Hypertensive heart and chronic kidney disease with heart failure and with stage 5 chronic kidney disease, or end stage renal disease (principal); I50.9 Heart failure, unspecified; N18.6 End stage renal disease; I25.2 Old myocardial infarction; Z99.2 Dependence on renal dialysis; Z91.041 Radiographic dye allergy status; Z88.5 Allergy status to narcotic agent; Z88.8 Allergy status to other drugs, medicaments and biological substances; Z91.048 Other nonmedicinal substance allergy status; Z79.899 Other long term (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
CPT/HCPCS: 36415; 71045; 80053; 83735; 84484; 85025; 85060; 93005; 93010; 96374; 96375; 99284-25; J0131; J1200; J1885; J2405

== ENCOUNTER 2022-02-16 00:38 | Emergency (ER) | payer MEDICARE ==
[~2022-02-16] VITALS: Ht 170.2 cm; Wt 75.3 kg
[2022-02-16] MEDS ORDERED: COZAAR100 MG PO (00:59)
[2022-02-16] MEDS ORDERED: MIRTAZAPINE7.5 MG PO (00:59)
[2022-02-16] MEDS ORDERED: LABETALOL HCL100 MG PO (00:59)
--- NOTE | 2022-02-16 14:15 | EKG ---
[facility] [address] [facility] [place] [address] Signed Normal sinus rhythm Left axis deviation Abnormal ECG When compared with ECG of 23-NOV-2021 19:34, QRS duration has increased T wave inversion no longer evident in Lateral leads Confirmed by MONROE WISEMAN MD ([id number]) on 02/16/2022 2:15:01 PM Electronically Signed By: MONROE WISEMAN MD 02/16/22 1415 PATIENT NAME: CONOR LOUISE Electrocardiogram DATE OF : [birth year] PHYSICIAN: MONROE WISEMAN MD REPORT #: [id number] REPORT IS CONFIDENTIAL AND NOT TO BE RELEASED WITHOUT AUTHORIZATION
== END 2022-02-16 06:35 | disposition left against medical advice (07) ==
LOC: ED 00:38
DX: N17.9 Acute kidney failure, unspecified (principal); E87.5 Hyperkalemia; I13.2 Hypertensive heart and chronic kidney disease with heart failure and with stage 5 chronic kidney disease, or end stage renal disease; I50.9 Heart failure, unspecified; N18.6 End stage renal disease; I25.2 Old myocardial infarction; Z20.822 Contact with and (suspected) exposure to COVID-19; Z99.2 Dependence on renal dialysis; Z87.891 Personal history of nicotine dependence; Z91.041 Radiographic dye allergy status; Z88.8 Allergy status to other drugs, medicaments and biological substances; Z88.5 Allergy status to narcotic agent; Z91.048 Other nonmedicinal substance allergy status; Z79.899 Other long term (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; Z91.15 Patient's noncompliance with renal dialysis
CPT/HCPCS: 36415; 71045; 80053; 83880; 84484; 84703; 85025; 85060; 87502; 93005; 93010; 99285-25; A9270; U0003

== ENCOUNTER 2022-04-29 08:33 | Emergency (ER) | payer MEDICARE ==
[~2022-04-29] VITALS: Ht 170.2 cm; Wt 75.4 kg
[~2022-04-29 08:33] MED LIST changes: +COZAAR100 MG PO; +LABETALOL HCL100 MG PO; +MIRTAZAPINE7.5 MG PO
--- NOTE | 2022-04-30 07:24 | EKG ---
[facility] [address] [facility] [place], [place] [address] Signed Normal sinus rhythm Normal ECG No previous ECGs available Confirmed by MONROE WISEMAN MD ([id number]) on 04/30/2022 7:24:49 AM Electronically Signed By: MONROE WISEMAN MD 04/30/22 0724 PATIENT NAME: CONOR LOUISE Electrocardiogram DATE OF : [birth year] PHYSICIAN: MONROE WISEMAN MD REPORT #: [id number] REPORT IS CONFIDENTIAL AND NOT TO BE RELEASED WITHOUT AUTHORIZATION
== END 2022-04-29 10:27 | disposition home or self-care (01) ==
LOC: ED 08:33
DX: I13.2 Hypertensive heart and chronic kidney disease with heart failure and with stage 5 chronic kidney disease, or end stage renal disease (principal); E11.22 Type 2 diabetes mellitus with diabetic chronic kidney disease; N18.6 End stage renal disease; I50.9 Heart failure, unspecified; Z99.2 Dependence on renal dialysis; R07.89 Other chest pain; I25.2 Old myocardial infarction; Z87.891 Personal history of nicotine dependence; Z88.8 Allergy status to other drugs, medicaments and biological substances; Z88.5 Allergy status to narcotic agent; Z91.048 Other nonmedicinal substance allergy status; Z91.041 Radiographic dye allergy status; Z79.899 Other long term (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
CPT/HCPCS: 36415; 71045; 80053; 84484; 85025; 85060; 96365; 96375; 99285-25; C9113; J2405

== ENCOUNTER 2022-05-16 23:18 | Emergency (ER) | payer MEDICARE ==
[~2022-05-16] VITALS: Ht 170.2 cm; Wt 75.8 kg
--- NOTE | 2022-05-17 07:53 | EKG ---
[facility] [address] [facility] [place], [place] [address] Signed Normal sinus rhythm Prolonged QT Abnormal ECG When compared with ECG of 29-APR-2022 08:43, No significant change was found Confirmed by MONROE WISEMAN MD ([id number]) on 05/17/2022 7:53:01 AM Electronically Signed By: MONROE WISEMAN MD 05/17/22 0753 PATIENT NAME: CONOR LOUISE MAGALY Electrocardiogram DATE OF : [birth year] PHYSICIAN: MONROE WISEMAN MD REPORT #: [id number] REPORT IS CONFIDENTIAL AND NOT TO BE RELEASED WITHOUT AUTHORIZATION
--- NOTE | 2022-05-17 07:55 | EKG ---
[facility] [address] [place] [address] Signed Normal sinus rhythm Prolonged QT Abnormal ECG When compared with ECG of 16-MAY-2022 23:29, (Unconfirmed) No significant change was found Confirmed by MONROE WISEMAN MD ([id number]) on 05/17/2022 7:54:53 AM Electronically Signed By: MONROE WISEMAN MD 05/17/22 0755 PATIENT NAME: CONOR LOUISE Electrocardiogram DATE OF : [birth year] PHYSICIAN: MONROE WISEMAN MD REPORT #: [id number] REPORT IS CONFIDENTIAL AND NOT TO BE RELEASED WITHOUT AUTHORIZATION
== END 2022-05-17 05:15 | disposition short-term general hospital (02) ==
LOC: ED 23:18
DX: R01.1 Cardiac murmur, unspecified (principal); R78.81 Bacteremia; I13.0 Hypertensive heart and chronic kidney disease with heart failure and stage 1 through stage 4 chronic kidney disease, or unspecified chronic kidney disease; I50.9 Heart failure, unspecified; N18.9 Chronic kidney disease, unspecified; Z87.891 Personal history of nicotine dependence; Z88.8 Allergy status to other drugs, medicaments and biological substances; Z91.041 Radiographic dye allergy status; Z88.5 Allergy status to narcotic agent; Z91.048 Other nonmedicinal substance allergy status; Z79.899 Other long term (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
CPT/HCPCS: 36415; 71045; 80053; 80170; 80202; 83605; 84484; 85025; 85060; 93005; 93010; 96374; 96375; 99285-25; J1170; J1200; J1580; J1885; J3370; J7060; U0003

== ENCOUNTER 2022-10-13 20:01 | Emergency (ER) | payer MEDICARE, OTHER ==
[~2022-10-13] VITALS: Ht 170.2 cm; Wt 75.8 kg
--- OUTSIDE RECORDS SUMMARY | ~2022-10-13 | XMS | Continuity of Care Document ---
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 Results/Labs No information. Social History No information. Vital Signs No information."
--- OUTSIDE RECORDS SUMMARY | ~2022-10-13 | XMS | Continuity of Care Document ---
Demographics + + + | Address | [address] | | | [place] [address] | + + + | Preferred Language | Unknown | + + + | Marital Status | Never | + + + | Shinto Affiliation | Unknown | + + + | Race | White | + + + | Ethnic Group | Not or | + + + Author + + + | Author | [facility] | + + + | Organization | [facility] | + + + | Address | [address] | | | [place] [address] | + + + | Phone | | + + + Care Team Providers + + + + | Care Accounts Receivable Bookkeeper Name | Role | Phone | [...] + + | 2021-03-19 10:20 | OTHER NEWSPERSON (CURRENT) | [facility] | | | DRUG [...] + + | 2021-11-23 05:47 | OTHER RETIREMENT (CURRENT) | [facility] | | | DRUG [...] + + | 2021-11-23 19:12 | OTHER NEWSPERSON (CURRENT) | [facility] | | | DRUG [...] + + | 2022-02-16 00:39 | OTHER RETIREMENT (CURRENT) | [facility] | | | DRUG [...] + + | 2022-04-29 08:33 | OTHER RETIREMENT (CURRENT) | [facility] | | | DRUG [...] + + | 2022-05-16 23:19 | OTHER NEWSPERSON (CURRENT) | [facility] | | | DRUG [...]
[2022-10-13 20:40] LABS: HEMATOCRIT 35.5 % (35.0-50.0); HEMOGLOBIN 11.6 g/dL (12.0-18.0); MCH 35.8 (27-36); MCHC 32.7 g/dl (30-36); MCV 109.7 fl (81-99); PLATELET COUNT 115 K/uL (140-440); RBC 3.24 M/ul (4.3-5.7)
[2022-10-13 20:54] LABS: ALBUMIN 3.5 g/dL (3.4-5.0); ALBUMIN/GLOBULIN RATIO 0.88 (1.1-2.4); ANION GAP 13.9 (7-21); BILIRUBIN, TOTAL 0.7 ng/dL (0.2-1.0); BUN/CREATININE RATIO 4.57 (6.0-28.6); CREATININE, SERUM 12.03 mg/dL (0.55-1.02); POTASSIUM 5.9 mmol/L (3.5-5.1); PROTEIN, TOTAL 7.5 g/dL (6.4-8.2)
[2022-10-13 20:55] LABS: BANDS, MANUAL DIFF 3; EOSINOPHILS, MANUAL DIFF 2; LYMPHOCYTES, MANUAL DIFF 32; MONOCYTES, MANUAL DIFF 1; NEUTROPHILS, MANUAL DIFF 62
[2022-10-13 22:35] VITALS: BP 120/85
== END 2022-10-13 22:35 | disposition home or self-care (01) ==
LOC: ED 20:01
PROVIDERS: Internal Medicine
DX: N83.201 Unspecified ovarian cyst, right side (principal); I13.0 Hypertensive heart and chronic kidney disease with heart failure and stage 1 through stage 4 chronic kidney disease, or unspecified chronic kidney disease; I50.9 Heart failure, unspecified; I25.2 Old myocardial infarction; Z87.891 Personal history of nicotine dependence; Z88.5 Allergy status to narcotic agent; Z88.8 Allergy status to other drugs, medicaments and biological substances; Z91.048 Other nonmedicinal substance allergy status; Z79.899 Other long term (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
CPT/HCPCS: 36415; 74177; 80053; 83690; 84703; 85025; 96375; 99284-25; J1200; J1885; J2405; Q9967

== ENCOUNTER 2022-11-10 05:16 | Emergency (ER) | payer MEDICARE, OTHER ==
[~2022-11-10] VITALS: Ht 170.2 cm; Wt 75.8 kg
--- OUTSIDE RECORDS SUMMARY | ~2022-11-10 | XMS | Continuity of Care Document ---
Demographics + + + | Address | [address] | | | [place] [address] | + + + | Preferred Language | Unknown | + + + | Marital Status | Never | + + + | Yarsanism Affiliation | Unknown | + + + | Race | White | + + + | Ethnic Group | Not or | + + + Author + + + | Author | [facility] | + + + | Organization | [facility] | + + + | Address | [address] | | | [place] [address] | + + + | Phone | | + + + Care Team Providers + + + + | Care Cloth Folder Hand Name | Role | Phone | + + + + Unavailable | Unavailable | + + + + Allergies and Intolerances + + + + + + | date | description | facility | reaction | severity | + + + + + + | (no date) | BLUEBERRY | [facility] | (no reaction) | (no severity) | + + + + + + | (no date) | MORPHINE | [facility] | (no reaction) | (no severity) | + + + + + + | (no date) | | [facility] | (no reaction) | (no severity) | | | METHYLPHENIDATE | | | | | | | | | | + + + + + + | (no date) | METOCLOPRAMIDE | [facility] | (no reaction) | (no severity) | | | | | | | + + + + + + | (no date) | ADHESIVE | [facility] | (no reaction) | (no severity) | | | TAPE-SILICONES | | | | + + + + + + | (no date) | LISINOPRIL | [facility] | (no reaction) | (no severity) | + + + + + + | (no date) | NITROGLYCERIN | [facility] | (no reaction) | (no severity) | + + + + + + | (no date) | IODINATED | [facility] | (no reaction) | (no severity) | | | CONTRAST MEDIA | | | | + + + + + + | (no date) | IODINE | [facility] | (no reaction) | (no severity) | + + + + + + | (no date) | Iodinated | [facility] | (no reaction) | (no severity) | | | Contrast Media | | | | + + + + + + | (no date) | nitroglycerin | [facility] | (no reaction) | (no severity) | + + + + + + | (no date) | | [facility] | (no reaction) | (no severity) | | | prochlorperazin | | | | | | e | | | | + + + + + + | (no date) | morphine | [facility] | (no reaction) | (no severity) | + + + + + + | (no date) | adhesive tape | [facility] | (no reaction) | (no severity) | + + + + + + | (no date) | metoclopramide | [facility] | (no reaction) | (no severity) | | | | | | | + + + + + + Encounters No information. Functional Status No information. Immunizations No information. Medications No information. Problems + + + + | date | description | facility | + + + + | 2021-03-19 10:20 | HYPERKALEMIA | [facility] | + + + + | 2021-03-19 10:20 | OLD MYOCARDIAL INFARCTION | [facility] | + + + + | 2021-03-19 10:20 | HEART FAILURE, UNSPECIFIED | [facility] | | | | | + + + + | 2021-03-19 10:20 | CHRONIC KIDNEY DISEASE, | [facility] | | | UNSPECIFIED | | + + + + | 2021-03-19 10:20 | CHEST PAIN, UNSPECIFIED | [facility] | + + + + | 2021-03-19 10:20 | OTHER SHELTER (CURRENT) | [facility] | | | DRUG THERAPY | | + + + + | 2021-03-19 10:20 | PERSONAL HISTORY OF | [facility] | | | NICOTINE DEPENDENCE | | + + + + | 2021-03-19 10:20 | ALLERGY STATUS TO NARCOTIC | [facility] | | | AGENT STATUS | | + + + + | 2021-03-19 10:20 | ALLERGY STATUS TO OTH | [facility] | | | DRUG/MEDS/BIOL SUBST STATUS | | | | | | + + + + | 2021-03-19 10:20 | RADIOGRAPHIC DYE ALLERGY | [facility] | | | STATUS | | + + + + | 2021-03-19 10:20 | OTHER NONMEDICINAL | [facility] | | | SUBSTANCE ALLERGY STATUS | | + + + + | 2021-03-19 10:20 | DEPENDENCE ON RENAL | [facility] | | | DIALYSIS | | + + + + | 2021-11-23 05:47 | 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 | [facility] | | | FAIL AND W STG 5 CHR | | + + + + | 2021-11-23 05:47 | OLD MYOCARDIAL INFARCTION | [facility] | + + + + | 2021-11-23 05:47 | HEART FAILURE, UNSPECIFIED | [facility] | | | | | + + + + | 2021-11-23 05:47 | END STAGE RENAL DISEASE | [facility] | + + + + | 2021-11-23 05:47 | COUGH, UNSPECIFIED | [facility] | + + + + | 2021-11-23 05:47 | 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) | [facility] | | | DRUG THERAPY | | + + + + | 2021-11-23 05:47 | PERSONAL HISTORY OF | [facility] | | | NICOTINE DEPENDENCE | | + + + + | 2021-11-23 05:47 | ALLERGY STATUS TO NARCOTIC | [facility] | | | AGENT STATUS | | + + + + | 2021-11-23 05:47 | ALLERGY STATUS TO OTH | [facility] | | | DRUG/MEDS/BIOL SUBST STATUS | | | | | | + + + + | 2021-11-23 05:47 | RADIOGRAPHIC DYE ALLERGY | [facility] | | | STATUS | | + + + + | 2021-11-23 05:47 | DEPENDENCE ON RENAL | [facility] | | | DIALYSIS | | + + + + | 2021-11-23 19:12 | 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 | [facility] | | | FAIL AND W STG 5 CHR | | + + + + | 2021-11-23 19:12 | OLD MYOCARDIAL INFARCTION | [facility] | + + + + | 2021-11-23 19:12 | HEART FAILURE, UNSPECIFIED | [facility] | | | | | + + + + | 2021-11-23 19:12 | END STAGE RENAL DISEASE | [facility] | + + + + | 2021-11-23 19:12 | OTHER CHEST PAIN | [facility] | + + + + | 2021-11-23 19:12 | 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) | [facility] | | | DRUG THERAPY | | + + + + | 2021-11-23 19:12 | ALLERGY STATUS TO NARCOTIC | [facility] | | | AGENT STATUS | | + + + + | 2021-11-23 19:12 | ALLERGY STATUS TO OTH | [facility] | | | DRUG/MEDS/BIOL SUBST STATUS | | | | | | + + + + | 2021-11-23 19:12 | RADIOGRAPHIC DYE ALLERGY | [facility] | | | STATUS | | + + + + | 2021-11-23 19:12 | OTHER NONMEDICINAL | [facility] | | | SUBSTANCE ALLERGY STATUS | | + + + + | 2021-11-23 19:12 | DEPENDENCE ON RENAL | [facility] | | | DIALYSIS | | + + + + | 2022-02-16 00:39 | HYPERKALEMIA | [facility] | + + + + | 2022-02-16 00:39 | 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 | [facility] | | | FAIL AND W STG 5 CHR | | + + + + | 2022-02-16 00:39 | OLD MYOCARDIAL INFARCTION | [facility] | + + + + | 2022-02-16 00:39 | HEART FAILURE, UNSPECIFIED | [facility] | | | | | + + + + | 2022-02-16 00:39 | ACUTE KIDNEY FAILURE, | [facility] | | | UNSPECIFIED | | + + + + | 2022-02-16 00:39 | END STAGE RENAL DISEASE | [facility] | + + + + | 2022-02-16 00:39 | SHORTNESS OF BREATH | [facility] | + + + + | 2022-02-16 00:39 | OTHER SHELTER (CURRENT) | [facility] | | | DRUG THERAPY | | + + + + | 2022-02-16 00:39 | PERSONAL HISTORY OF | [facility] | | | NICOTINE DEPENDENCE | | + + + + | 2022-02-16 00:39 | ALLERGY STATUS TO NARCOTIC | [facility] | | | AGENT STATUS | | + + + + | 2022-02-16 00:39 | ALLERGY STATUS TO OTH | [facility] | | | DRUG/MEDS/BIOL SUBST STATUS | | | | | | + + + + | 2022-02-16 00:39 | RADIOGRAPHIC DYE ALLERGY | [facility] | | | STATUS | | + + + + | 2022-02-16 00:39 | OTHER NONMEDICINAL | [facility] | | | SUBSTANCE ALLERGY STATUS | | + + + + | 2022-02-16 00:39 | PATIENT'S NONCOMPLIANCE | [facility] | | | WITH RENAL DIALYSIS | | + + + + | 2022-02-16 00:39 | DEPENDENCE ON RENAL | [facility] | | | DIALYSIS | | + + + + | 2022-04-29 08:33 | TYPE 2 DIABETES MELLITUS W | [facility] | | | DIABETIC CHRONIC KIDNEY | | + + + + | 2022-04-29 08:33 | 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 | [facility] | | | FAIL AND W STG 5 CHR | | + + + + | 2022-04-29 08:33 | OLD MYOCARDIAL INFARCTION | [facility] | + + + + | 2022-04-29 08:33 | HEART FAILURE, UNSPECIFIED | [facility] | | | | | + + + + | 2022-04-29 08:33 | END STAGE RENAL DISEASE | [facility] | + + + + | 2022-04-29 08:33 | OTHER CHEST PAIN | [facility] | + + + + | 2022-04-29 08:33 | CHEST PAIN, UNSPECIFIED | [facility] | + + + + | 2022-04-29 08:33 | OTHER SHELTER (CURRENT) | [facility] | | | DRUG THERAPY | | + + + + | 2022-04-29 08:33 | PERSONAL HISTORY OF | [facility] | | | NICOTINE DEPENDENCE | | + + + + | 2022-04-29 08:33 | ALLERGY STATUS TO NARCOTIC | [facility] | | | AGENT STATUS | | + + + + | 2022-04-29 08:33 | ALLERGY STATUS TO OTH | [facility] | | | DRUG/MEDS/BIOL SUBST STATUS | | | | | | + + + + | 2022-04-29 08:33 | RADIOGRAPHIC DYE ALLERGY | [facility] | | | STATUS | | + + + + | 2022-04-29 08:33 | OTHER NONMEDICINAL | [facility] | | | SUBSTANCE ALLERGY STATUS | | + + + + | 2022-04-29 08:33 | DEPENDENCE ON RENAL | [facility] | | | DIALYSIS | | + + + + | 2022-05-16 23:19 | 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 | [facility] | | | FAIL AND STG 1-4/UNSP | | + + + + | 2022-05-16 23:19 | HEART FAILURE, UNSPECIFIED | [facility] | | | | | + + + + | 2022-05-16 23:19 | CHRONIC KIDNEY DISEASE, | [facility] | | | UNSPECIFIED | | + + + + | 2022-05-16 23:19 | CARDIAC MURMUR, | [facility] | | | UNSPECIFIED | | + + + + | 2022-05-16 23:19 | CHEST PAIN, UNSPECIFIED | [facility] | + + + + | 2022-05-16 23:19 | BACTEREMIA | [facility] | + + + + | 2022-05-16 23:19 | 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) | [facility] | | | DRUG THERAPY | | + + + + | 2022-05-16 23:19 | PERSONAL HISTORY OF | [facility] | | | NICOTINE DEPENDENCE | | + + + + | 2022-05-16 23:19 | ALLERGY STATUS TO NARCOTIC | [facility] | | | AGENT STATUS | | + + + + | 2022-05-16 23:19 | ALLERGY STATUS TO OTH | [facility] | | | DRUG/MEDS/BIOL SUBST STATUS | | | | | | + + + + | 2022-05-16 23:19 | RADIOGRAPHIC DYE ALLERGY | [facility] | | | STATUS | | + + + + | 2022-05-16 23:19 | OTHER NONMEDICINAL | [facility] | | | SUBSTANCE ALLERGY STATUS | | + + + + | 2022-05-17 16:19:59 | Cardiac murmur, | [facility] | | | unspecified | | + + + + | 2022-05-18 15:56:11 | Cardiac murmur, | [facility] | | | unspecified | | + + + + | 2022-10-13 20:01 | 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 | [facility] | | | FAIL AND STG 1-4/UNSP | | + + + + | 2022-10-13 20:01 | OLD MYOCARDIAL INFARCTION | [facility] | + + + + | 2022-10-13 20:01 | HEART FAILURE, UNSPECIFIED | [facility] | | | | | + + + + | 2022-10-13 20:01 | UNSPECIFIED OVARIAN CYST, | [facility] | | | RIGHT SIDE | | + + + + | 2022-10-13 20:01 | UNSPECIFIED ABDOMINAL PAIN | [facility] | | | | | + + + + | 2022-10-13 20:01 | OTHER SHELTER (CURRENT) | [facility] | | | DRUG THERAPY | | + + + + | 2022-10-13 20:01 | PERSONAL HISTORY OF | [facility] | | | NICOTINE DEPENDENCE | | + + + + | 2022-10-13 20:01 | ALLERGY STATUS TO NARCOTIC | [facility] | | | AGENT STATUS | | + + + + | 2022-10-13 20:01 | ALLERGY STATUS TO OTH | [facility] | | | DRUG/MEDS/BIOL SUBST STATUS | | | | | | + + + + | 2022-10-13 20:01 | OTHER NONMEDICINAL | [facility] | | | SUBSTANCE ALLERGY STATUS | | + + + + | 2022-11-03 15:34 | Other diseases of the | [facility] | | | pleura (J90-J94) | | + + + + | 2022-11-03 15:34 | ACUTE COUGH | [facility] | + + + + Procedures No information. Results/Labs No information. Social History No information. Vital Signs No information."
[2022-11-10 05:52] LABS: BASOPHILS 0.9 % (0-2); EOSINOPHILS 14.8 % (0-6); HEMATOCRIT 34.6 % (35.0-50.0); HEMOGLOBIN 11.4 g/dL (12.0-18.0); LYMPHOCYTES 22.7 % (24-44); MCH 35.1 (27-36); MCHC 33.1 g/dl (30-36); MCV 106.1 fl (81-99); MONOCYTES 5.7 % (0-12); NEUTROPHILS 55.9 % (39-80); PLATELET COUNT 125 K/uL (140-440); RBC 3.26 M/ul (4.3-5.7); RDW 16.2 (10.5-15.0)
[2022-11-10 06:16] LABS: ALBUMIN 3.6 g/dL (3.4-5.0); ALBUMIN/GLOBULIN RATIO 0.86 (1.1-2.4); ANION GAP 17.1 (7-21); BILIRUBIN, TOTAL 0.7 ng/dL (0.2-1.0); BUN/CREATININE RATIO 5.26 (6.0-28.6); CALCIUM 8.4 mg/dL (8.5-10.1); CREATININE, SERUM 11.59 mg/dL (0.55-1.02); MAGNESIUM 2.4 mg/dL (1.8-2.4); POTASSIUM 5.1 mmol/L (3.5-5.1); PROTEIN, TOTAL 7.8 g/dL (6.4-8.2)
[2022-11-10] MEDS ORDERED: TRAMADOL HCL50 MG PO (06:33)
[2022-11-10 06:51] VITALS: BP 163/111
--- NOTE | 2022-11-10 12:13 | EKG ---
[facility] [address] [facility] [place] [address] Signed Normal sinus rhythm Septal infarct , age undetermined Abnormal ECG When compared with ECG of 17-MAY-2022 02:57, No significant change was found Confirmed by JESSICA TYSON MD ([id number]) on 11/10/2022 12:13:24 PM Electronically Signed By: JESSICA TYSON 11/10/22 1213 PATIENT NAME: CONOR LOUISE Electrocardiogram DATE OF : [birth year] PHYSICIAN: JESSICA TYSON REPORT #: [id number] REPORT IS CONFIDENTIAL AND NOT TO BE RELEASED WITHOUT AUTHORIZATION
== END 2022-11-10 06:53 | disposition home or self-care (01) ==
LOC: ED 05:16
PROVIDERS: Family Medicine
DX: R07.89 Other chest pain (principal); I13.0 Hypertensive heart and chronic kidney disease with heart failure and stage 1 through stage 4 chronic kidney disease, or unspecified chronic kidney disease; I50.9 Heart failure, unspecified; N18.9 Chronic kidney disease, unspecified; I25.2 Old myocardial infarction; Z87.891 Personal history of nicotine dependence; Z88.5 Allergy status to narcotic agent; Z88.8 Allergy status to other drugs, medicaments and biological substances; Z91.048 Other nonmedicinal substance allergy status; Z79.899 Other long term (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
CPT/HCPCS: 36415; 71045; 80053; 83735; 84484; 84703; 85025; 85060; 93005; 93010; 96374; 96375; 99285-25; J2405; J3010

== ENCOUNTER 2023-02-16 20:19 | Emergency (ER) | payer MEDICARE, OTHER ==
[~2023-02-16] VITALS: Ht 170.2 cm; Wt 71.4 kg
--- NOTE | ~2023-02-16 | EKG ---
[facility] [address] [facility] [place], [place] [address] Draft EK completed, results pending confirmation PATIENT NAME: CONOR LOUISE MAGALY Electrocardiogram DATE OF : [birth year] PHYSICIAN: PRELIMINARY REPORT #: [id number] REPORT IS CONFIDENTIAL AND NOT TO BE RELEASED WITHOUT AUTHORIZATION
[~2023-02-16 20:19] MED LIST changes: +TRAMADOL HCL50 MG PO
[2023-02-16 21:10] LABS: BASOPHILS 0.8 % (0-2); EOSINOPHILS 14.2 % (0-6); HEMATOCRIT 24.3 % (35.0-50.0); HEMOGLOBIN 8.3 g/dL (12.0-18.0); LYMPHOCYTES 18.3 % (24-44); MCH 36.3 (27-36); MCHC 34.2 g/dl (30-36); MCV 106.1 fl (81-99); MONOCYTES 7.7 % (0-12); PLATELET COUNT 120 K/uL (140-440); RBC 2.29 M/ul (4.3-5.7)
[2023-02-16 21:34] LABS: ALBUMIN 3.3 g/dL (3.4-5.0); ALBUMIN/GLOBULIN RATIO 0.87 (1.1-2.4); ANION GAP 19.2 (7-21); BILIRUBIN, TOTAL 0.8 ng/dL (0.2-1.0); BUN/CREATININE RATIO 4.77 (6.0-28.6); CALCIUM 7.7 mg/dL (8.5-10.1); CREATININE, SERUM 9.63 mg/dL (0.55-1.02); POTASSIUM 3.2 mmol/L (3.5-5.1); PROTEIN, TOTAL 7.1 g/dL (6.4-8.2)
[2023-02-16 21:56] LABS: LACTIC ACID, BLOOD 0.4 mmol/L (0.4-2.0)
[2023-02-16 22:25] LABS: INFLUENZA B NAA NEGATIVE (NEGATIVE); RESPIRATORY SYNCYTIAL VIR NAA NEGATIVE (NEGATIVE)
[2023-02-17 02:38] VITALS: BP 105/77
== END 2023-02-17 02:31 | disposition short-term general hospital (02) ==
LOC: ED 20:19
PROVIDERS: Internal Medicine
DX: J18.9 Pneumonia, unspecified organism (principal); I13.2 Hypertensive heart and chronic kidney disease with heart failure and with stage 5 chronic kidney disease, or end stage renal disease; N18.6 End stage renal disease; I50.9 Heart failure, unspecified; I25.2 Old myocardial infarction; Z20.822 Contact with and (suspected) exposure to COVID-19; Z99.2 Dependence on renal dialysis; Z99.81 Dependence on supplemental oxygen; Z87.891 Personal history of nicotine dependence; Z88.5 Allergy status to narcotic agent; Z88.8 Allergy status to other drugs, medicaments and biological substances; Z91.048 Other nonmedicinal substance allergy status
CPT/HCPCS: 71045; 80053; 83605; 84484; 85025; 87502; 93005; 93010; 94640; 96365; 96375; 96376; 99285-25; A9270; C9803; J0456; J0696; J0780; J1170; J1200; J1885; U0002

== ENCOUNTER 2023-07-17 11:06 | Emergency (ER) | payer MEDICARE, OTHER ==
[~2023-07-17] VITALS: Ht 170.2 cm; Wt 81.8 kg
[2023-07-17] MEDS ORDERED: ALBUTEROL SULFATE 0.083% 3 ML VIAL ONE (11:13)
[2023-07-17] MEDS ORDERED: DEXTROSE 50 % 50 ML VIAL IV ONE (11:15)
[2023-07-17] MEDS ORDERED: CALCIUM GLUCONATE 1,000 MG/10 ML VIAL IV ONE ×2 (11:15→13:00)
[2023-07-17] MEDS ORDERED: ALBUTEROL SULFATE 0.5% 2.5 MG/0.5 ML VIAL ONE (11:17)
[2023-07-17] MEDS ORDERED: DEXTROSE 50% 50 ML SYR ONE (11:20)
[2023-07-17 11:26] LABS: BASOPHILS 0.7 % (0-2); EOSINOPHILS 8.7 % (0-6); HEMATOCRIT 27.6 % (35.0-50.0); HEMOGLOBIN 9.3 g/dL (12.0-18.0); LYMPHOCYTES 21.7 % (24-44); MCH 35.4 (27-36); MCHC 33.5 g/dl (30-36); MCV 105.7 fl (81-99); NEUTROPHILS 62.9 % (39-80); PLATELET COUNT 177 K/uL (140-440); RBC 2.61 M/ul (4.3-5.7); RDW 14.8 (10.5-15.0)
[2023-07-17] MEDS ORDERED: SODIUM BICARBONATE 50 MEQ/50 ML SYR IV SCH (11:30)
[2023-07-17] MEDS ORDERED: Insulin Regular, Human 100 UNIT/ML ML IV ONE (11:30)
[2023-07-17] MEDS ORDERED: HYDROmorphone HCL 1 MG/ML SYR IV PRN (11:30)
[2023-07-17] MEDS ORDERED: ALBUTEROL SULFATE 0.5% 2.5 MG/0.5 ML VIAL INH ONE (11:30)
[2023-07-17 11:45] LABS: ALBUMIN 3.1 g/dL (3.4-5.0); ALBUMIN/GLOBULIN RATIO 0.76 (1.1-2.4); BILIRUBIN, TOTAL 0.6 ng/dL (0.2-1.0); BUN/CREATININE RATIO 6.91 (6.0-28.6); CALCIUM 6.8 mg/dL (8.5-10.1); CREATININE, SERUM 11.42 mg/dL (0.55-1.02); MAGNESIUM 2.3 mg/dL (1.8-2.4); PROTEIN, TOTAL 7.2 g/dL (6.4-8.2)
[2023-07-17 11:52] LABS: ANION GAP 25.6 (7-21)
[2023-07-17 11:56] LABS: POTASSIUM 7.6 mmol/L (3.5-5.1)
[2023-07-17] MEDS ORDERED: MIRTAZAPINE15 MG PO (12:05)
[2023-07-17] MEDS ORDERED: ONDANSETRON ODT4 MG PO (12:06)
[2023-07-17] MEDS ORDERED: CITALOPRAM HBR10 MG PO (12:06)
[2023-07-17] MEDS ORDERED: HYDROXYZINE HCL25 MG PO (12:06)
[2023-07-17] MEDS ORDERED: LOSARTAN POTAS100 MG PO (12:06)
[2023-07-17] MEDS ORDERED: ondansetron HCL 4 MG/2 ML VIAL IV ONE (13:00)
[2023-07-17 13:22] VITALS: BP 105/62
[2023-07-17 13:27] LABS: ANION GAP 19.7 (7-21); BUN/CREATININE RATIO 7.12 (6.0-28.6); CALCIUM 7.2 mg/dL (8.5-10.1); CREATININE, SERUM 11.37 mg/dL (0.55-1.02); POTASSIUM 5.7 mmol/L (3.5-5.1)
[2023-07-17] MEDS ORDERED: DEXTROSE 50% 50 ML SYR IV ONE (13:30)
--- NOTE | 2023-07-17 22:52 | EKG ---
[facility] [address] [facility] [place] [address] Signed Sinus rhythm with frequent premature ventricular complexes in a pattern of bigeminy Low voltage QRS Nonspecific T wave abnormality Abnormal ECG When compared with ECG of 16-FEB-2023 20:34, Normal sinus rhythm replaced by slow bigeminy pattern Confirmed by Octavio Shea MD () on 07/17/2023 10:52:31 PM Electronically Signed By: OCTAVIO SHEA MD 07/17/23 2252 PATIENT NAME: CONOR LOUISE Electrocardiogram DATE OF : [birth year] PHYSICIAN: OCTAVIO SHEA MD REPORT #: [id number] REPORT IS CONFIDENTIAL AND NOT TO BE RELEASED WITHOUT AUTHORIZATION
--- NOTE | 2023-07-17 22:53 | EKG ---
[facility] [address] [facility] [place] [address] Signed Sinus rhythm with frequent premature ventricular complexes Prolonged QT Abnormal ECG When compared with ECG of 16-FEB-2023 20:34, premature ventricular complexes are now present Nonspecific T wave abnormality no longer evident in Lateral leads Confirmed by Octavio Shea MD () on 07/17/2023 10:53:52 PM Electronically Signed By: OCTAVIO SHEA MD 07/17/23 2253 PATIENT NAME: CONOR LOUISE Electrocardiogram DATE OF : [birth year] PHYSICIAN: OCTAVIO SHEA MD REPORT #: [id number] REPORT IS CONFIDENTIAL AND NOT TO BE RELEASED WITHOUT AUTHORIZATION
== END 2023-07-17 13:22 | disposition short-term general hospital (02) ==
LOC: ED 11:06
PROVIDERS: Emergency Medicine
DX: E87.5 Hyperkalemia (principal); I13.2 Hypertensive heart and chronic kidney disease with heart failure and with stage 5 chronic kidney disease, or end stage renal disease; N18.5 Chronic kidney disease, stage 5; I50.9 Heart failure, unspecified; I25.2 Old myocardial infarction; Z87.891 Personal history of nicotine dependence; Z88.5 Allergy status to narcotic agent; Z88.8 Allergy status to other drugs, medicaments and biological substances; Z91.09 Other allergy status, other than to drugs and biological substances; Z79.899 Other long term (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; Z99.2 Dependence on renal dialysis
CPT/HCPCS: 36415; 71045; 80048; 80053; 83735; 84484; 84703; 85025; 93005; 93010; 94644; 94799; J0612; J1170; J1815; J2405

== ENCOUNTER 2023-08-25 23:23 | Emergency (ER) | payer MEDICARE, OTHER ==
[~2023-08-25] VITALS: Ht 170.2 cm; Wt 79.3 kg
[~2023-08-25 23:23] MED LIST changes: +CITALOPRAM HBR10 MG PO; +HYDROXYZINE HCL25 MG PO; +LOSARTAN POTAS100 MG PO; +MIRTAZAPINE15 MG PO; +ONDANSETRON ODT4 MG PO
[2023-08-25] MEDS ORDERED: MINOXIDIL10 MG PO (23:53)
[2023-08-26 00:44] LABS: BASOPHILS 1.1 % (0-2); EOSINOPHILS 8.6 % (0-6); HEMATOCRIT 26.3 % (35.0-50.0); HEMOGLOBIN 8.7 g/dL (12.0-18.0); LYMPHOCYTES 23.8 % (24-44); MCH 36.3 (27-36); MCHC 33.3 g/dl (30-36); MCV 109.1 fl (81-99); MONOCYTES 7.3 % (0-12); NEUTROPHILS 59.2 % (39-80); PLATELET COUNT 146 K/uL (140-440); RBC 2.41 M/ul (4.3-5.7); RDW 15.6 (10.5-15.0)
[2023-08-26] MEDS ORDERED: ALBUTEROL/IPRATROPIUM 3 ML NEB INH ONE (01:00)
[2023-08-26 01:08] LABS: ALBUMIN 3.1 g/dL (3.4-5.0); ALBUMIN/GLOBULIN RATIO 0.84 (1.1-2.4); ANION GAP 11.3 (7-21); BILIRUBIN, TOTAL 0.5 ng/dL (0.2-1.0); BUN/CREATININE RATIO 4.51 (6.0-28.6); CREATININE, SERUM 5.54 mg/dL (0.55-1.02); MAGNESIUM 2.3 mg/dL (1.8-2.4); POTASSIUM 4.3 mmol/L (3.5-5.1); PROTEIN, TOTAL 6.8 g/dL (6.4-8.2)
[2023-08-26 01:53] LABS: INFLUENZA B NAA NEGATIVE (NEGATIVE); RESPIRATORY SYNCYTIAL VIR NAA NEGATIVE (NEGATIVE)
[2023-08-26] MEDS ORDERED: FAMOTIDINE 20 MG/ 2 ML VIAL IV ONE (02:15)
[2023-08-26] MEDS ORDERED: ASPIRIN 81 MG CHEW PO ONE (02:15)
[2023-08-26] MEDS ORDERED: FLONASE ALLERG9.9 ML NAS (02:48)
[2023-08-26 03:15] VITALS: BP 127/76
--- NOTE | 2023-08-27 15:24 | EKG ---
[facility] [address] [facility] [place], [place] [address] Signed Normal sinus rhythm Prolonged QT Abnormal ECG When compared with ECG of 26-AUG-2023 00:17, (Unconfirmed) No significant change was found Confirmed by Mendy Wagner ([id number]) on 08/27/2023 3:24:23 PM Electronically Signed By: MENDY WAGNER MD 08/27/23 1524 PATIENT NAME: CONOR LOUISE Electrocardiogram DATE OF : [birth year] PHYSICIAN: MENDY WAGNER MD REPORT #: [id number] REPORT IS CONFIDENTIAL AND NOT TO BE RELEASED WITHOUT AUTHORIZATION
--- NOTE | 2023-08-27 15:24 | EKG ---
[facility] [address] [facility] [place] [address] Signed Normal sinus rhythm Normal ECG When compared with ECG of 17-JUL-2023 11:35, premature ventricular complexes are no longer present Nonspecific T wave abnormality now evident in Lateral leads Confirmed by Mendy Wagner ([id number]) on 08/27/2023 3:24:32 PM Electronically Signed By: MENDY WAGNER MD 08/27/23 1524 PATIENT NAME: CONOR LOUISE Electrocardiogram DATE OF : [birth year] PHYSICIAN: MENDY WAGNER MD REPORT #: [id number] REPORT IS CONFIDENTIAL AND NOT TO BE RELEASED WITHOUT AUTHORIZATION
== END 2023-08-26 03:15 | disposition home or self-care (01) ==
LOC: ED 23:23
PROVIDERS: Internal Medicine
DX: R55 Syncope and collapse (principal); I13.2 Hypertensive heart and chronic kidney disease with heart failure and with stage 5 chronic kidney disease, or end stage renal disease; N18.6 End stage renal disease; I50.9 Heart failure, unspecified; Z99.2 Dependence on renal dialysis; Z87.891 Personal history of nicotine dependence; I25.2 Old myocardial infarction; Z88.5 Allergy status to narcotic agent; Z88.8 Allergy status to other drugs, medicaments and biological substances; Z91.09 Other allergy status, other than to drugs and biological substances; Z79.899 Other long term (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; Z11.52 Encounter for screening for COVID-19
CPT/HCPCS: 36415; 70450; 71045; 80053; 83735; 83880; 84484; 85025; 87502; 93005; 93010; 94640; 96374; 99284-25; A9270; U0002

== ENCOUNTER 2023-11-10 04:44 | Emergency (ER) | payer MEDICARE, OTHER ==
[~2023-11-10] VITALS: Ht 170.2 cm; Wt 74.6 kg
[~2023-11-10 04:44] MED LIST changes: +FLONASE ALLERG9.9 ML NAS; +MINOXIDIL10 MG PO
[2023-11-10] MEDS ORDERED: HYDROmorphone HCL 1 MG/ML SYR IV ONE (05:30)
[2023-11-10] MEDS ORDERED: ALBUTEROL/IPRATROPIUM 3 ML NEB INH ONE (05:30)
[2023-11-10 06:15] LABS: BASOPHILS 0.8 % (0-2); HEMATOCRIT 32.2 % (35.0-50.0); HEMOGLOBIN 10.8 g/dL (12.0-18.0); LYMPHOCYTES 23.4 % (24-44); MCH 33.8 (27-36); MCHC 33.6 g/dl (30-36); MCV 100.8 fl (81-99); MONOCYTES 6.6 % (0-12); NEUTROPHILS 59.2 % (39-80); PLATELET COUNT 161 K/uL (140-440); RBC 3.19 M/ul (4.3-5.7); RDW 13.3 (10.5-15.0)
[2023-11-10 06:32] LABS: ALBUMIN 3.1 g/dL (3.4-5.0); ALBUMIN/GLOBULIN RATIO 0.84 (1.1-2.4); ANION GAP 16.3 (7-21); BILIRUBIN, TOTAL 0.4 ng/dL (0.2-1.0); BUN/CREATININE RATIO 5.45 (6.0-28.6); CREATININE, SERUM 12.46 mg/dL (0.55-1.02); PROTEIN, TOTAL 6.8 g/dL (6.4-8.2)
[2023-11-10 06:44] LABS: POTASSIUM 5.3 mmol/L (3.5-5.1)
[2023-11-10] MEDS ORDERED: HYDROCODON-ACE1 EA10 PO (07:19)
[2023-11-10] MEDS ORDERED: HYDROCODONE BIT/ACETAMINOPHEN 5/325 MG 1 TAB HOME.PACK PO ONE (07:30)
[2023-11-10 07:50] VITALS: BP 141/94
== END 2023-11-10 07:50 | disposition home or self-care (01) ==
LOC: ED 04:44
PROVIDERS: Family Medicine
DX: S22.42XA Multiple fractures of ribs, left side, initial encounter for closed fracture (principal); I11.0 Hypertensive heart disease with heart failure; I50.9 Heart failure, unspecified; I25.2 Old myocardial infarction; X58.XXXA Exposure to other specified factors, initial encounter; Z88.5 Allergy status to narcotic agent; Z88.8 Allergy status to other drugs, medicaments and biological substances; Z91.09 Other allergy status, other than to drugs and biological substances; Z79.899 Other long term (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; Z11.52 Encounter for screening for COVID-19
CPT/HCPCS: 36415; 71101; 80053; 85025; 96374; 99284-25; J1170; U0002

== ENCOUNTER 2024-01-24 19:08 | Emergency (ER) | payer MEDICARE, OTHER ==
[~2024-01-24] VITALS: Ht 170.2 cm; Wt 73.5 kg
[~2024-01-24 19:08] MED LIST changes: +HYDROCODON-ACE1 EA10 PO
[2024-01-24] MEDS ORDERED: HYDROmorphone HCL 1 MG/ML SYR IV PRN (19:30)
[2024-01-24] MEDS ORDERED: SERTRALINE HCL25 MG PO (19:35)
[2024-01-24] MEDS ORDERED: XPHOZAH PO (19:41)
[2024-01-24] MEDS ORDERED: HYDROCODONE BIT/ACETAMINOPHEN 5/325 MG 1 TAB HOME.PACK PO ONE (21:15)
[2024-01-24 21:40] VITALS: BP 183/112
== END 2024-01-24 21:40 | disposition home or self-care (01) ==
LOC: ED 19:08
DX: S76.192A Other specified injury of left quadriceps muscle, fascia and tendon, initial encounter (principal); S52.302A Unspecified fracture of shaft of left radius, initial encounter for closed fracture; I13.2 Hypertensive heart and chronic kidney disease with heart failure and with stage 5 chronic kidney disease, or end stage renal disease; I50.9 Heart failure, unspecified; I25.2 Old myocardial infarction; N18.6 End stage renal disease; Z99.2 Dependence on renal dialysis; Z87.891 Personal history of nicotine dependence; Z91.048 Other nonmedicinal substance allergy status; Z88.8 Allergy status to other drugs, medicaments and biological substances; Z88.5 Allergy status to narcotic agent; Z79.899 Other long term (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; W18.09XA Striking against other object with subsequent fall, initial encounter
CPT/HCPCS: 29125; 73090; 73110; 73560; 99283-25; A9270; J1171

== ENCOUNTER 2024-01-27 20:23 | Emergency (ER) | payer MEDICARE, OTHER ==
[~2024-01-27] VITALS: Ht 170.2 cm; Wt 72.9 kg
[~2024-01-27 20:23] MED LIST changes: +SERTRALINE HCL25 MG PO; +XPHOZAH PO
[2024-01-27] MEDS ORDERED: HYDROCODONE/ACETA 5/325 TAB PO ONE (21:15)
[2024-01-27] MEDS ORDERED: ONDANSETRON 4 MG TAB ODT SL ONE (21:30)
[2024-01-27 21:51] VITALS: BP 171/98
== END 2024-01-27 21:52 | disposition home or self-care (01) ==
LOC: ED 20:23
DX: S52.392A Other fracture of shaft of radius, left arm, initial encounter for closed fracture (principal); I12.0 Hypertensive chronic kidney disease with stage 5 chronic kidney disease or end stage renal disease; N18.6 End stage renal disease; Z99.2 Dependence on renal dialysis; I25.2 Old myocardial infarction; Z87.891 Personal history of nicotine dependence; Z91.048 Other nonmedicinal substance allergy status; Z88.8 Allergy status to other drugs, medicaments and biological substances; Z88.5 Allergy status to narcotic agent; Z79.899 Other long term (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; W18.30XA Fall on same level, unspecified, initial encounter
CPT/HCPCS: 99284-25; A9270

== ENCOUNTER 2024-02-15 19:22 | Emergency (ER) | payer OTHER, MEDICARE ==
[~2024-02-15] VITALS: Ht 170.2 cm; Wt 74.0 kg
[2024-02-15] MEDS ORDERED: HYDROCODONE/ACETA 5/325 TAB PO ONE (20:15)
[2024-02-15 23:28] VITALS: BP 186/96
[2024-02-15] MEDS ORDERED: TRAMADOL HCL 50 MG HOME.PACK PO ONE (23:30)
== END 2024-02-15 23:28 | disposition home or self-care (01) ==
LOC: ED 19:22
DX: S76.012A Strain of muscle, fascia and tendon of left hip, initial encounter (principal); S52.182D Other fracture of upper end of left radius, subsequent encounter for closed fracture with routine healing; I13.2 Hypertensive heart and chronic kidney disease with heart failure and with stage 5 chronic kidney disease, or end stage renal disease; I50.9 Heart failure, unspecified; N18.6 End stage renal disease; I25.2 Old myocardial infarction; Z99.2 Dependence on renal dialysis; Z87.891 Personal history of nicotine dependence; Z91.048 Other nonmedicinal substance allergy status; Z88.8 Allergy status to other drugs, medicaments and biological substances; Z88.5 Allergy status to narcotic agent; Z79.899 Other long term (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; Z91.81 History of falling; W19.XXXA Unspecified fall, initial encounter
CPT/HCPCS: 36415; 73080; 73502; 84703; 99283; A9270

== ENCOUNTER 2024-02-23 21:31 | Emergency (ER) | payer MEDICARE, OTHER ==
[~2024-02-23] VITALS: Ht 170.2 cm; Wt 72.0 kg
[2024-02-23] MEDS ORDERED: SERTRALINE HCL50 MG PO (21:56)
[2024-02-23] MEDS ORDERED: CLONAZEPAM0.5 MG PO (21:57)
[2024-02-23] MEDS ORDERED: DULERA 200 MCG/13 GM INH (21:57)
[2024-02-23] MEDS ORDERED: OMEPRAZOLE20 MG PO (21:57)
[2024-02-23 22:10] LABS: EOSINOPHILS 8.6 % (0-6); HEMATOCRIT 31.8 % (35.0-50.0); HEMOGLOBIN 10.6 g/dL (12.0-18.0); LYMPHOCYTES 26.5 % (24-44); MCH 34.7 (27-36); MCHC 33.2 g/dl (30-36); MCV 104.4 fl (81-99); NEUTROPHILS 57.9 % (39-80); PLATELET COUNT 211 K/uL (140-440); RBC 3.05 M/ul (4.3-5.7); RDW 14.5 (10.5-15.0)
[2024-02-23 22:26] LABS: ALBUMIN 2.9 g/dL (3.4-5.0); ALBUMIN/GLOBULIN RATIO 0.62 (1.1-2.4); ANION GAP 10.9 (7-21); BILIRUBIN, TOTAL 0.5 ng/dL (0.2-1.0); BUN/CREATININE RATIO 4.16 (6.0-28.6); CALCIUM 7.9 mg/dL (8.5-10.1); CREATININE, SERUM 6.97 mg/dL (0.55-1.02); POTASSIUM 3.9 mmol/L (3.5-5.1); PROTEIN, TOTAL 7.6 g/dL (6.4-8.2)
[2024-02-23] MEDS ORDERED: FAMOTIDINE 20 MG/ 2 ML VIAL IV ONE (22:45)
[2024-02-23] MEDS ORDERED: AMLODIPINE BESYLATE 5 MG TAB PO ONE (22:45)
[2024-02-23] MEDS ORDERED: hydrALAZINE HCL 20 MG/ML VIAL IV ONE (22:45)
[2024-02-23] MEDS ORDERED: diphenhydrAMINE HCL 50 MG/ML VIAL IV ONE (23:15)
[2024-02-24] MEDS ORDERED: NORVASC5 MG PO (01:32)
[2024-02-24 01:42] VITALS: BP 187/96
--- NOTE | 2024-02-24 19:40 | EKG ---
[facility] [address] [facility] [place] [address] Signed Normal sinus rhythm Prolonged QT Abnormal ECG When compared with ECG of 26-AUG-2023 02:11, No significant change was found Confirmed by Antolin Tucker MD ([id number]) on 02/24/2024 7:40:03 PM Electronically Signed By: ANTOLIN TUCKER MD 02/24/241939 PATIENT NAME: CONOR LOUISE Electrocardiogram DATE OF : [birth year] PHYSICIAN: ANTOLIN TUCKER MD REPORT #: [id number] REPORT IS CONFIDENTIAL AND NOT TO BE RELEASED WITHOUT AUTHORIZATION
== END 2024-02-24 01:44 | disposition home or self-care (01) ==
LOC: ED 21:31
PROVIDERS: Internal Medicine
DX: I16.0 Hypertensive urgency (principal); R07.2 Precordial pain; I13.2 Hypertensive heart and chronic kidney disease with heart failure and with stage 5 chronic kidney disease, or end stage renal disease; N18.6 End stage renal disease; I50.9 Heart failure, unspecified; I25.2 Old myocardial infarction; Z99.2 Dependence on renal dialysis; Z87.891 Personal history of nicotine dependence; Z91.048 Other nonmedicinal substance allergy status; Z88.8 Allergy status to other drugs, medicaments and biological substances; Z88.5 Allergy status to narcotic agent; Z79.52 Long term (current) use of systemic steroids; Z79.899 Other long term (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
CPT/HCPCS: 36415; 71045; 80053; 83880; 84484; 85025; 93005; 93010; 96374; 96375; 99285-25; J0360

== ENCOUNTER 2024-04-10 22:03 | Emergency (ER) | payer OTHER, MEDICARE ==
[~2024-04-10] VITALS: Ht 170.2 cm; Wt 68.5 kg
[~2024-04-10 22:03] MED LIST changes: +CLONAZEPAM0.5 MG PO; +DULERA 200 MCG/13 GM INH; +NORVASC5 MG PO; +SERTRALINE HCL50 MG PO
[2024-04-10] MEDS ORDERED: MORPHINE SULFATE 10 MG/ML VIAL IM ONE (22:30)
[2024-04-10] MEDS ORDERED: diphenhydrAMINE HCL 25 MG CAP PO ONE (22:45)
[2024-04-11] MEDS ORDERED: TRAMADOL HCL 50 MG HOME.PACK PO ONE (01:30)
[2024-04-11 01:41] VITALS: BP 166/90
== END 2024-04-11 01:39 | disposition home or self-care (01) ==
LOC: ED 22:03
DX: S16.1XXA Strain of muscle, fascia and tendon at neck level, initial encounter (principal); I13.2 Hypertensive heart and chronic kidney disease with heart failure and with stage 5 chronic kidney disease, or end stage renal disease; I50.9 Heart failure, unspecified; N18.6 End stage renal disease; I25.2 Old myocardial infarction; Z99.2 Dependence on renal dialysis; Z88.5 Allergy status to narcotic agent; Z88.8 Allergy status to other drugs, medicaments and biological substances; Z91.048 Other nonmedicinal substance allergy status; Z79.52 Long term (current) use of systemic steroids; Z79.899 Other long term (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; V89.2XXA Person injured in unspecified motor-vehicle accident, traffic, initial encounter
CPT/HCPCS: 36415; 70450; 71046; 72125; 72131; 84703; 96372; 99284-25; A9270; J2270

== ENCOUNTER 2024-06-14 22:15 | Emergency (ER) | payer MEDICARE, OTHER ==
[~2024-06-14] VITALS: Ht 170.2 cm; Wt 63.3 kg
[2024-06-14] MEDS ORDERED: OXYCODONE/APAP 5/325 TAB PO ONE (22:45)
[2024-06-14] MEDS ORDERED: OXYCODONE/ACETAMINOPHEN 1 TAB HOME.PACK PO ONE (23:15)
[2024-06-14] MEDS ORDERED: PERCOCET 5-3251 EACH PO (23:16)
[2024-06-15 00:08] VITALS: BP 155/87
== END 2024-06-15 00:09 | disposition home or self-care (01) ==
LOC: ED 22:15
DX: S52.532A Colles' fracture of left radius, initial encounter for closed fracture (principal); S52.692A Other fracture of lower end of left ulna, initial encounter for closed fracture; I13.2 Hypertensive heart and chronic kidney disease with heart failure and with stage 5 chronic kidney disease, or end stage renal disease; I50.9 Heart failure, unspecified; N18.6 End stage renal disease; I25.2 Old myocardial infarction; M81.0 Age-related osteoporosis without current pathological fracture; M85.80 Other specified disorders of bone density and structure, unspecified site; Z99.2 Dependence on renal dialysis; Z87.891 Personal history of nicotine dependence; Z88.5 Allergy status to narcotic agent; Z88.8 Allergy status to other drugs, medicaments and biological substances; Z91.048 Other nonmedicinal substance allergy status; Z79.51 Long term (current) use of inhaled steroids; Z79.899 Other long term (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; W19.XXXA Unspecified fall, initial encounter
CPT/HCPCS: 29125; 73110; 99283

== ENCOUNTER 2024-06-26 16:33 | Emergency (ER) | payer MEDICARE, OTHER ==
[~2024-06-26] VITALS: Ht 170.2 cm; Wt 63.3 kg
[~2024-06-26 16:33] MED LIST changes: +PERCOCET 5-3251 EACH PO
[2024-06-26] MEDS ORDERED: ALBUTEROL/IPRATROPIUM 3 ML NEB INH PRN (17:15)
[2024-06-26 17:52] LABS: BASOPHILS 0.9 % (0-2); EOSINOPHILS 8.6 % (0-6); HEMATOCRIT 30.2 % (35.0-50.0); HEMOGLOBIN 10.4 g/dL (12.0-18.0); LYMPHOCYTES 14.2 % (24-44); MCH 35.1 (27-36); MCHC 34.5 g/dl (30-36); MCV 101.8 fl (81-99); MONOCYTES 5.9 % (0-12); NEUTROPHILS 70.4 % (39-80); PLATELET COUNT 144 K/uL (140-440); RBC 2.97 M/ul (4.3-5.7)
[2024-06-26 18:08] LABS: ALBUMIN 3.5 g/dL (3.4-5.0); ALBUMIN/GLOBULIN RATIO 0.88 (1.1-2.4); ANION GAP 8.5 (7-21); BUN/CREATININE RATIO 2.29 (6.0-28.6); CALCIUM 8.3 mg/dL (8.5-10.1); CREATININE, SERUM 3.92 mg/dL (0.55-1.02); MAGNESIUM 1.9 mg/dL (1.8-2.4); POTASSIUM 3.5 mmol/L (3.5-5.1); PROTEIN, TOTAL 7.5 g/dL (6.4-8.2)
[2024-06-26] MEDS ORDERED: DOXYCYCLINE HY100 MG PO (19:20)
[2024-06-26] MEDS ORDERED: DOXYCYCLINE HYCLATE 100 MG CAP PO ONE (19:30)
[2024-06-26 20:00] VITALS: BP 157/90
--- NOTE | 2024-06-26 22:27 | EKG ---
[facility] [address] [facility] [place] [address] Signed Normal sinus rhythm Prolonged QT Abnormal ECG When compared with ECG of 25-JUN-2024 10:48, No significant change was found Confirmed by Octavio Shea MD () on 06/26/2024 10:27:39 PM Electronically Signed By: OCTAVIO SHEA MD 06/26/242226 PATIENT NAME: CONOR LOUISE Electrocardiogram DATE OF : [birth year] PHYSICIAN: OCTAVIO SHEA MD REPORT #: [id number] REPORT IS CONFIDENTIAL AND NOT TO BE RELEASED WITHOUT AUTHORIZATION
== END 2024-06-26 20:00 | disposition home or self-care (01) ==
LOC: ED 16:33
PROVIDERS: Emergency Medicine
DX: J40 Bronchitis, not specified as acute or chronic (principal); I11.0 Hypertensive heart disease with heart failure; I50.9 Heart failure, unspecified; Z79.899 Other long term (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; Z91.048 Other nonmedicinal substance allergy status; Z88.5 Allergy status to narcotic agent; Z88.8 Allergy status to other drugs, medicaments and biological substances; Z87.891 Personal history of nicotine dependence
CPT/HCPCS: 36415; 71045; 80053; 83735; 84484; 84703; 85025; 93005; 93010; 94640; 99285-25

== ENCOUNTER 2024-07-05 05:53 | Day surgery (SDC) | payer MEDICARE, OTHER ==
[2024-06-25 11:42] VITALS: BP 124/80
[~2024-07-05] VITALS: Ht 170.2 cm; Wt 66.0 kg
[~2024-07-05 05:53] MED LIST changes: +DOXYCYCLINE HY100 MG PO; +LACTATED RINGER'S 1,000 ML IV SCH
[2024-07-05 06:03] VITALS: BP 130/73
[2024-07-05] MEDS ORDERED: CYPROHEPTADINE H4 MG PO (06:08)
[2024-07-05 06:50] LABS: ALBUMIN 3.3 g/dL (3.4-5.0); ALBUMIN/GLOBULIN RATIO 0.94 (1.1-2.4); ANION GAP 9.1 (7-21); BILIRUBIN, TOTAL 0.6 mg/dL (0.2-1.0); BUN/CREATININE RATIO 5.39 (6.0-28.6); CALCIUM 8.1 mg/dL (8.5-10.1); CREATININE, SERUM 7.23 mg/dL (0.55-1.02); POTASSIUM 4.1 mmol/L (3.5-5.1); PROTEIN, TOTAL 6.8 g/dL (6.4-8.2)
[2024-07-05] MEDS ORDERED: CEFAZOLIN SODIUM 2 GM/20 ML SYR IV SCH (07:00)
[2024-07-05] MEDS ORDERED: LIDOCAINE HCL 1% 5 ML SDV INJ ONE (07:00)
[2024-07-05] MEDS ORDERED: IBLOOD GLUCOSE TEST STRIP 1 EA TEST VI PRN ×2 (07:00→09:45)
[2024-07-05] MEDS ORDERED: propofoL 200 MG/20 ML VIAL ONE ×2 (07:10→09:04)
[2024-07-05] MEDS ORDERED: LIDOCAINE HCL 2% 20 MG/ML VIAL INJ ONE (07:10)
[2024-07-05] MEDS ORDERED: DEXAMETHASONE SOD PHOS 4 MG/ML VIAL ONE (07:10)
[2024-07-05] MEDS ORDERED: Ropivacaine HCl 0.5% 30 ML VIAL ONE (07:10)
[2024-07-05] MEDS ORDERED: HYDROCODONE/ACETA 7.5/325 TAB PO PRN (08:30)
[2024-07-05] MEDS ORDERED: SODIUM CHLORIDE 0.9% 1,000 ML IV ONE (08:49)
[2024-07-05] MEDS ORDERED: ondansetron HCL 4 MG/2 ML VIAL ONE (09:04)
[2024-07-05] MEDS ORDERED: HYDROCODON-ACE1 EA11 PO (09:16)
[2024-07-05] MEDS ORDERED: fentaNYL citrate 50 MCG/ML SDV ONE (09:34)
[2024-07-05] MEDS ORDERED: fentaNYL citrate 50 MCG/ML SDV IV PRN (09:45)
[2024-07-05] MEDS ORDERED: NALOXONE HCL 0.4 MG SYR IV PRN (09:45)
[2024-07-05] MEDS ORDERED: ondansetron HCL 4 MG/2 ML VIAL IV PRN (09:45)
[2024-07-05] MEDS ORDERED: diphenhydrAMINE HCL 25 MG CAP ONE (10:06)
[2024-07-05] MEDS ORDERED: diphenhydrAMINE HCL 25 MG CAP PO ONE (10:15)
--- NOTE | 2024-07-05 10:31 | OR ---
[facility] [address] [facility] [place], [place] [address] Signed DATE OF OPERATION: 07/05/2024 SURGEON: Christa Langley MD PREOPERATIVE DIAGNOSIS: Left distal radius and ulna fracture, displaced. POSTOPERATIVE DIAGNOSIS: Left distal radius and ulna fracture, displaced. PROCEDURE PERFORMED: Closed reduction and percutaneous pinning of left distal radius. TRANSPORTATION DISPATCH MANAGER: None. ANESTHESIA: General. BLOOD LOSS: None. IMPLANTS: Four 1.6 K-wires were used. BRIEF HISTORY: Dara is a 29-year-old female with a distal radius and ulna fracture. She was initially scheduled for surgery last week. However, she developed pneumonia. She does have an extensive past medical history including complete kidney failure and dialysis for many years. She does have a shunt in this arm and we were unlikely to be able to place any kind of a block or use a tourniquet. I did not feel that this fracture warranted open reduction and internal fixation due to that and her extremely poor bone quality. Risks and benefits of closed reduction and percutaneous pinning were discussed with her and she understood, wished to proceed. DESCRIPTION OF PROCEDURE: Once consent was obtained she was taken to the operating room. After adequate anesthesia, she was left on day surgery bed. C-arm was brought in and the fracture was reduced with little difficulty. The K-wires were then passed, two from the radial styloid and two from the dorsal rim of the radius engaging the body of the radius Electronically Signed By: CHRISTA LANGLEY MD 07/05/24 1031 PATIENT NAME: DARA LOUISE OPERATIVE REPORT DATE OF : [birth year] REPORT #: [id number] PHYSICIAN: CHRISTA LANGLEY MD PCP: ILIR DORAN REPORT IS CONFIDENTIAL AND NOT TO BE RELEASED WITHOUT AUTHORIZATION [facility] [address] [place] [address] [place], [place] [address] Signed proximally. Only moderate purchase was noted in the bone. All four pins were cut and bent and dressed with Allevyn and gauze. She was placed in a radial gutter splint in 20 degrees of flexion. She was awakened, taken to the recovery room in satisfactory condition. All sponge, needle, and instrument counts correct. Christa Langley MD BA/FAITHL /[id number] Copies: ~ Electronically Signed By: CHRISTA LANGLEY MD 07/05/24 1031 PATIENT NAME: DARA LOUISE OPERATIVE REPORT DATE OF : [birth year] REPORT #: [id number] PHYSICIAN: CHRISTA LANGLEY MD PCP: ILIR DORAN-Aileen REPORT IS CONFIDENTIAL AND NOT TO BE RELEASED WITHOUT AUTHORIZATION
--- NOTE | 2024-07-05 10:37 | NUR ---
LE 1030: PT AND BF ARE GIVEN VERBAL AND WRITTEN DC INSTRUCTIONS. QUESTIONS ARE ASKED AND ANSWERED. SHE IS ENCOURAGED TO WEAR HER OXYGEN IF SHE PLANS ON NAPPING TODAY. LE 1036: PT IS TAKEN TO PERSONAL VEHICLE VIA WC. SHE IS ABLE TO TRANSFER HERSELF WITHOUT ISSUES.
--- NOTE | 2024-07-05 13:07 | NUR ---
07/05/24 1307 Kimberly Christine 0911 PT ARRIVED TO PACU ON 6L VIA MASK, RESP EVEN AND UNLABORED. O2 SAT LOW 90S. PT REPOSITIONED IN BED WITH INSTITUTIONAL COMMODITY ANALYST. PT WAKES WITH MOVEMENT AND REPORIENTED TO PACU. IV INFUSING, SITE WNL. 914 O2 MASK REMOVED AND PT REPORTS PAIN IN HER LEFT ARM, PT RPEORTS HAND AND ARM ARE NUMB WITH 8/10 PAIN. 918 O2 SAT 87% AND NC PLACED AT 4L. DEEP BREATHING AND COUGHING ENCOURAGED. O2 SAT INCREASED TO LOW 90S. 928 PT ASKED TO USE HER OWN INHALER AND APPOVED BY ACREAGE REPORTER. PT ABLE TO USE HER INHALER. O2 INCEASED TO MID 90S. PLAN OF CARE DISCUSSED. 936 PT REPORTS "PAIN IS JUST GETTING REALLY BAD." PT RESTING IN BED TALKING TO RN. PAIN MEDICAITON GIVEN, PT BASELINE USES 2L NC AT HOME AT NIGHT. 943 PT REPORTS NO CHANGE IN IN PAIN LEVEL. PAIN MEDICATION GIVEN. PT SIPPING WATER WITH NO CONCERNS. 1000 PT REPORTS PAIN IS BETTER AT 2/10. PLAN OF CARE DISCUSSED AND PT "BOYFRIEND" AT BEDSIDE. PT SITTING IN HIGH FOWLERS AND REPORTS SHE GETS ICHY WITH ANY PAIN MEDICATION AND REQUESTS BENADRYL AND ACREAGE REPORTER GIVES VERBAL ORDER. O2 DECREASED TO 2L VIA NC. 1008 BENADRYL GIVEN. 1020 O2 REMAINS ABOVE 90 WITH 2L NC, PT BASELINE. PT DRESSED HERSELF WITH BOYFRINED. ORAL PAIN MEDICATION GIVEN AFTER EATING CRACKERS. 928
[2024-07-05 13:12] VITALS: BP 139/86
== END 2024-07-05 10:34 | disposition home or self-care (01) ==
LOC: DS 05:53
PROVIDERS: Nurse Anesthetist, Certified Registered; ATTEND Specialist
PROC: 0PSJ34Z Reposition Left Radius with Internal Fixation Device, Percutaneous Approach (ICD-10-PCS; principal; 2024-07-05 08:30)
DX: S52.602A Unspecified fracture of lower end of left ulna, initial encounter for closed fracture (principal); S52.502A Unspecified fracture of the lower end of left radius, initial encounter for closed fracture; I50.9 Heart failure, unspecified; N18.9 Chronic kidney disease, unspecified; Z88.5 Allergy status to narcotic agent; Z88.8 Allergy status to other drugs, medicaments and biological substances; Z79.899 Other long term (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; W01.0XXA Fall on same level from slipping, tripping and stumbling without subsequent striking against object, initial encounter
CPT/HCPCS: 01820; 36415; 64415; 73100; 76942; 80053; 93005; 93010; A9270; J0690; J1100; J2405; J2704; J2795; J3010; J7030; J7121

== ENCOUNTER 2024-07-07 05:00 | Emergency (ER) | payer MEDICARE, OTHER ==
[~2024-07-07] VITALS: Ht 170.2 cm; Wt 71.0 kg
[~2024-07-07 05:00] MED LIST changes: +CYPROHEPTADINE H4 MG PO; +HYDROCODON-ACE1 EA11 PO; -LACTATED RINGER'S 1,000 ML IV SCH
[2024-07-07] MEDS ORDERED: ONDANSETRON ODT8 MG PO (05:20)
[2024-07-07] MEDS ORDERED: METOCLOPRAMIDE HCL 10 MG/2 ML SDV IM ONE (05:30)
[2024-07-07] MEDS ORDERED: ONDANSETRON 4 MG TAB ODT SL ONE (05:30)
[2024-07-07] MEDS ORDERED: PROMETHAZINE HCL 25 MG HOME.PACK PO ONE (05:30)
[2024-07-07] MEDS ORDERED: ONDANSETRON 4 MG HOME.PACK SL ONE (05:30)
[2024-07-07 05:32] VITALS: BP 151/87
== END 2024-07-07 05:32 | disposition home or self-care (01) ==
LOC: ED 05:00
DX: R11.2 Nausea with vomiting, unspecified (principal); Z76.0 Encounter for issue of repeat prescription; J45.909 Unspecified asthma, uncomplicated; I11.0 Hypertensive heart disease with heart failure; I50.9 Heart failure, unspecified; I25.2 Old myocardial infarction; Z79.899 Other long term (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; Z91.048 Other nonmedicinal substance allergy status; Z88.8 Allergy status to other drugs, medicaments and biological substances; Z87.891 Personal history of nicotine dependence
CPT/HCPCS: 99283; A9270

== ENCOUNTER 2024-09-15 20:39 | Emergency (ER) | payer MEDICARE, OTHER ==
[~2024-09-15] VITALS: Ht 170.2 cm; Wt 63.4 kg
[2024-09-15 21:04] LABS: BASOPHILS 0.5 % (0.1-1.2); EOSINOPHILS 6.6 % (0.7-5.8); LYMPHOCYTES 15.4 % (19.3-51.7); MCH 34.4 PG (25.6-32.2); MCHC 32.0 g/dL (32.2-35.5); MCV 107.8 fL (79.4-94.8); MONOCYTES 5.1 % (4.7-12.5); NEUTROPHILS 72.2 % (34.0-71.1); RBC 2.70 M/uL (3.93-5.22)
[2024-09-15 21:09] LABS: INR 1.24 (0.80-1.30); PROTIME 14.8 Sec (11.2-14.2)
[2024-09-15 21:16] LABS: ALT (SGPT) 20.0 U/L (14-59); AST (SGOT) 14.0 U/L (15-37); GLOMERULAR FILTRATION RATE,EST 7.0 mL/min (>60); PROTEIN, TOTAL 7.0 g/dL (6.4-8.2); UREA NITROGEN 45.0 mg/dL (7-18)
[2024-09-15 22:18] VITALS: BP 183/114
--- NOTE | 2024-09-17 10:50 | EKG ---
[facility] [address] [facility] [place], [place] [address] Signed Normal sinus rhythm Normal ECG Confirmed by Bonilla Gerber DO ([id number]) on 09/17/2024 10:50:03 AM Electronically Signed By: BONILLA GERBER DO 09/17/24 1050 PATIENT NAME: CONOR LOUISE Electrocardiogram DATE OF : [birth year] PHYSICIAN: BONILLA GERBER DO REPORT #: [id number] REPORT IS CONFIDENTIAL AND NOT TO BE RELEASED WITHOUT AUTHORIZATION
== END 2024-09-15 22:19 | disposition left against medical advice (07) ==
LOC: ED 20:39
PROVIDERS: Family Medicine
DX: R07.89 Other chest pain (principal); I13.2 Hypertensive heart and chronic kidney disease with heart failure and with stage 5 chronic kidney disease, or end stage renal disease; I50.9 Heart failure, unspecified; I25.2 Old myocardial infarction; N18.6 End stage renal disease; J45.909 Unspecified asthma, uncomplicated; Z99.2 Dependence on renal dialysis; Z87.891 Personal history of nicotine dependence; Z91.09 Other allergy status, other than to drugs and biological substances; Z88.8 Allergy status to other drugs, medicaments and biological substances; Z79.899 Other long term (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; Z53.29 Procedure and treatment not carried out because of patient's decision for other reasons
CPT/HCPCS: 36415; 71045; 80053; 83735; 84484; 85025; 85610; 93005; 93010; 99285-25

== ENCOUNTER 2024-12-30 09:01 | Day surgery (SDC) | payer MEDICARE, OTHER ==
[~2024-12-30] VITALS: Ht 170.2 cm; Wt 60.0 kg
[~2024-12-30 09:01] MED LIST changes: +CEFAZOLIN SODIUM 2 GM in SODIUM CHLORIDE 0.9% 100 ML IV SCH; +IBLOOD GLUCOSE TEST STRIP 1 EA TEST VI PRN; +LACTATED RINGER'S 1,000 ML IV SCH; +LIDOCAINE HCL 1% 5 ML SDV INJ ONE
[2024-12-30 09:20] VITALS: BP 173/88
--- NOTE | 2024-12-30 09:47 | NUR ---
[facility] OUT IN CAR FOR RIDE HOME.
[2024-12-30] MEDS ORDERED: Ropivacaine HCl 0.5% 30 ML VIAL ONE (10:42)
[2024-12-30] MEDS ORDERED: LIDOCAINE HCL 2% 5 ML SDV ONE (10:42)
[2024-12-30] MEDS ORDERED: DEXAMETHASONE SOD PHOS 10 MG/ML VIAL ONE (10:48)
--- NOTE | 2024-12-30 11:13 | NUR ---
DISPENSARY TECHNICIAN IN TO TALK WITH PT AND DO BLOCK L ARM SEE ANESTESIA RECORD.
[2024-12-30] MEDS ORDERED: KETOROLAC TROMETHAMINE 15 MG/ML VIAL IV PRN (11:15)
[2024-12-30] MEDS ORDERED: HYDROCODONE/ACETA 7.5/325 TAB PO PRN (11:15)
[2024-12-30] MEDS ORDERED: fentaNYL citrate 100 MCG/2 ML VIAL ONE (11:35)
[2024-12-30] MEDS ORDERED: NALOXONE HCL 0.4 MG SYR IV PRN (12:00)
[2024-12-30] MEDS ORDERED: fentaNYL citrate 50 MCG/ML SDV IV PRN (12:00)
[2024-12-30] MEDS ORDERED: IBLOOD GLUCOSE TEST STRIP 1 EA TEST VI PRN (12:00)
[2024-12-30] MEDS ORDERED: HYDROmorphone HCL 1 MG/ML SYR IV PRN (12:00)
[2024-12-30] MEDS ORDERED: HYDROCODON-ACE1 EA11 PO (12:23)
[2024-12-30] MEDS ORDERED: DOXYCYCLINE HY100 MG PO (12:23)
[2024-12-30] MEDS ORDERED: LABETALOL HCL 20 MG/4 ML VIAL IV ONE (13:30)
[2024-12-30 13:52] VITALS: BP 178/106
--- NOTE | 2024-12-30 13:55 | NUR ---
12/30/24 Latanya Omalley 1228: PT ARRIVED TO PACU VIA STRETCHER. PT ON 6L VIA MASK. PT NON AROUSABLE AT THIS TIME.
--- NOTE | 2024-12-30 13:57 | NUR ---
PT DOESNT VOID ON DIALYSIS.
--- NOTE | 2024-12-30 14:04 | NUR ---
EATING CRACKERS AND PEANUTBUTTER. DRINKING POP. REQUESTS PAIN MED AND GIVEN SEE EMAR. RATES PAIN 08/13
--- NOTE | 2024-12-30 14:16 | OR ---
[facility] [address] [place], [place] [address] Signed DATE OF OPERATION: 12/30/2024 SURGEON: Christa Langley MD PREOPERATIVE DIAGNOSIS: Malunion left distal radius, nonunion left distal ulna. POSTOPERATIVE DIAGNOSIS: Malunion left distal radius, nonunion left distal ulna. PROCEDURES PERFORMED: 1. Open reduction and internal fixation of left distal ulna. 2. Attempted reduction of distal radius with no success. INSTRUCTOR WARPER: Sapna Andrade PA-C. Sapna was present and critical for all portions of procedure. ANESTHESIA: General. TOURNIQUET TIME: 35 minutes. IMPLANTS: Argelia DVR distal ulna plate with six screws. BRIEF HISTORY: Dara is a 29-year-old female with a history of dialysis, who suffered a distal radius fracture. Her fracture was pinned initially after closed reduction and drifted. The distal radius showed some healing. The distal ulna showed a hypertrophic nonunion. Risks and benefits of operative treatment were discussed with her and she elected to proceed. DESCRIPTION OF PROCEDURE: Once consent was obtained she was taken to the operating room. After adequate anesthesia she was placed on operating table. The left distal radius was approached first through a longitudinal incision along the FCR. The FCR was moved out of the way. There was minimal pronator. This was incised and elevated. We were unable however to reduce the radius. The union was actually quite well said more than it showed on the Electronically Signed By: CHRISTA LANGLEY MD 12/30/24 1416 PATIENT NAME: DARA LOUISE OPERATIVE REPORT DATE OF : [birth year] REPORT #: [id number] PHYSICIAN: CHRISTA LANGLEY MD PCP: ELSA TERRAZAS PAC REPORT IS CONFIDENTIAL AND NOT TO BE RELEASED WITHOUT AUTHORIZATION [facility] [address] [place] [id number] Signed x-ray. I elected not to do an osteotomy at this time. We then irrigated the wound and closed it with 3-0 Stratafix. Attention was then turned to the distal ulna. A longitudinal incision along the mid ulnar border was taken through skin and subcutaneous tissue. The periosteum was incised longitudinally and elevated. The nonunion was then taken down using curette and rongeur. Fracture was then held in reduced position. Distal ulna plate was held with central screw. It was then adjusted in terms of position on the image intensifier and two screws were placed proximally and two distally. Plate placement and screw lengths were then checked, found to be appropriate. Locking screws were placed in the distal end and proximal ends of the plate and across the fracture itself. The fracture was quite stable at the end of the procedure. However, bone quality was quite poor as would be expected in this situation. The wound was copiously irrigated with normal saline, closed again with 3-0 Stratafix and Steri-Strips and Dermabond were applied to both wounds. They were dressed with Allevyn dressing, sterile gauze and volar splint. She tolerated the procedure well. All sponge, needle, and instrument counts were correct. Christa Langley MD BA/MODL /[id number] Copies: ~ Electronically Signed By: CHRISTA LANGLEY MD 12/30/24 1416 PATIENT NAME: DARA LOUISE OPERATIVE REPORT DATE OF : [birth year] REPORT #: [id number] PHYSICIAN: CHRISTA LANGLEY MD PCP: ELSA TERRAZAS PAC REPORT IS CONFIDENTIAL AND NOT TO BE RELEASED WITHOUT AUTHORIZATION
[2024-12-30 14:50] VITALS: BP 167/97
--- NOTE | 2024-12-30 14:58 | NUR ---
ROOM AIR X 20 MIN SAT AT 93%. ENC TO USE HER OXYGEN WHEN SHE GETS HOME AND NAPS SHE USES AT NIGHT. HAS DRANK WATER AND ATE CRACKERS. AMB WELL
--- NOTE | 2024-12-30 14:59 | NUR ---
DC INSTRUCTIONS EXPLAINED AND REVIEWED WITH PT AND S O STATES THEY UNDERSTAND AND NO QUESTIONS. DRESSED AND READY TO GO AT 1450. PT TOOK HOME MEDS FRIEND BROUGHT TO HER AND OKD WITH DR BRADLEY.
[2024-12-30] MEDS ORDERED: SEVOFLURANE 250 ML BTL INH ONE (17:30)
--- NOTE | 2025-01-02 06:07 | EKG ---
[facility] [address] [facility] [place], [place] [address] Signed Sinus rhythm with 1st degree AV block Otherwise normal ECG When compared with ECG of 15-SEP-2024 20:48, No significant change was found Confirmed by JESSICA TYSON MD ([id number]) on 01/02/2025 6:07:39 AM Electronically Signed By: JESSICA TYSON 01/02/25 0607 PATIENT NAME: CONOR LOUISE Electrocardiogram DATE OF : [birth year] PHYSICIAN: JESSICA TYSON REPORT #: [id number] REPORT IS CONFIDENTIAL AND NOT TO BE RELEASED WITHOUT AUTHORIZATION
== END 2024-12-30 14:50 | disposition home or self-care (01) ==
LOC: DS 09:01
PROVIDERS: ATTEND Specialist
PROC: 0PSL04Z Reposition Left Ulna with Internal Fixation Device, Open Approach (ICD-10-PCS; 2024-12-30)
PROC: 3E0T3BZ Introduction of Anesthetic Agent into Peripheral Nerves and Plexi, Percutaneous Approach (ICD-10-PCS; 2024-12-30)
PROC: 0PSJ04Z Reposition Left Radius with Internal Fixation Device, Open Approach (ICD-10-PCS; principal; 2024-12-30 11:05)
DX: S52.602A Unspecified fracture of lower end of left ulna, initial encounter for closed fracture (principal); S52.502A Unspecified fracture of the lower end of left radius, initial encounter for closed fracture; Z53.8 Procedure and treatment not carried out for other reasons; E11.9 Type 2 diabetes mellitus without complications; Z88.5 Allergy status to narcotic agent; Z88.8 Allergy status to other drugs, medicaments and biological substances
CPT/HCPCS: 01830; 36415; 64417; 73100; 84703; 93005; 93010; A9270; C1713; J0688; J1100; J2003; J2405; J2704; J2795; J3010; J7121

== ENCOUNTER 2025-01-05 01:19 | Emergency (ER) | payer MEDICARE, OTHER ==
[~2025-01-05] VITALS: Ht 170.2 cm; Wt 60.0 kg
[~2025-01-05 01:19] MED LIST changes: -CEFAZOLIN SODIUM 2 GM in SODIUM CHLORIDE 0.9% 100 ML IV SCH; -IBLOOD GLUCOSE TEST STRIP 1 EA TEST VI PRN; -LACTATED RINGER'S 1,000 ML IV SCH; -LIDOCAINE HCL 1% 5 ML SDV INJ ONE
[2025-01-05] MEDS ORDERED: HYDROCODONE BIT/ACETAMINOPHEN 5/325 MG 1 TAB HOME.PACK PO ONE (02:15)
[2025-01-05 02:30] VITALS: BP 136/87
== END 2025-01-05 02:37 | disposition home or self-care (01) ==
LOC: ED 01:19
DX: M79.632 Pain in left forearm (principal); I11.0 Hypertensive heart disease with heart failure; I50.9 Heart failure, unspecified; J45.909 Unspecified asthma, uncomplicated; Z87.891 Personal history of nicotine dependence; Z88.8 Allergy status to other drugs, medicaments and biological substances
CPT/HCPCS: 73090; 99283; A9270